=== PATIENT | male | born 1950 | race Caucasian/White ===

== ENCOUNTER 2018-09-16 13:52 | Outpatient (CLI) | payer MEDICARE, OTHER, SELFPAY ==
--- NOTE | 2018-09-16 12:49 | DI.RAD_ITS ---
SYMPTOMS/DIAGNOSIS: CHRONIC COUGH, R05 PA AND LATERAL CHEST: The heart is normal in size. The lungs are clear. The mediastinal structures and pleura appear intact. CONCLUSION: Normal chest.
== END 2018-09-16 14:12 ==
PROVIDERS: PCP Family Medicine; Visit Provider Family Medicine
DX: R05 Cough (principal)
CPT/HCPCS: 71046

== ENCOUNTER 2018-09-17 02:11 | Outpatient (CLI) | payer MEDICARE, OTHER, SELFPAY ==
[2018-09-17 09:56] LABS: Hemoglobin A1C 6.7 % (4.5-6.2)
[2018-09-17 10:17] LABS: Anion Gap 9.3 mmol/L (3-11); BUN 11 mg/dL (7-18); CO2 30.7 mmol/L (21.0-32.0); CREATININE 1.09 mg/dL (0.70-1.30); Calcium 9.3 mg/dL (8.5-10.1); Chloride 103 mmol/L (98-107); Glucose 103 mg/dL (70-100); Potassium 3.7 mmol/L (3.5-5.1); Sodium 143 mmol/L (136-145)
[2018-09-17 14:59] LABS: Cholesterol 227 mg/dL (50-200); HDL Cholesterol 35 mg/dL (40-60); LDL CHOLESTEROL 154 mg/dL (<100); Triglyceride 204 mg/dL (30-150)
== END 2018-09-17 02:31 ==
PROVIDERS: PCP Family Medicine; Visit Provider Family Medicine
DX: E11.9 Type 2 diabetes mellitus without complications (principal)
CPT/HCPCS: 36415; 80048; 80061; 83721; 83036

== ENCOUNTER → 2018-10-04 09:20 | Outpatient (BNVA) | payer MEDICARE, OTHER, SELFPAY | PROVIDERS: PCP Family Medicine; Referring Provider Family Medicine; Visit Provider Surgery | DX: K40.90 Unilateral inguinal hernia, without obstruction or gangrene, not specified as recurrent (principal); J44.9 Chronic obstructive pulmonary disease, unspecified; E11.9 Type 2 diabetes mellitus without complications; I10 Essential (primary) hypertension; Z87.891 Personal history of nicotine dependence | CPT/HCPCS: 99214 ==

== ENCOUNTER 2018-10-19 06:00 | Day surgery (SDC) | payer MEDICARE, OTHER, SELFPAY ==
[2018-10-19] VITALS (8 sets, daily range): BP systolic 84–125; BP diastolic 41–74; PULSE 65–74; RESP 10–18; TEMP 35.5–36.6; O2SAT 91–97
[2018-10-19] MEDS: Lactated Ringers 1,000 ML 30 ML IV ×2 (06:49→09:33)
[2018-10-19] MEDS: Bupivacaine 0.25% Pres-Free 30 ML VIAL (07:55)
[2018-10-19] MEDS: Lidocaine 1% Pres-Free 5 ML VIAL (08:24)
--- NOTE | 2018-10-19 09:46 | ROE_ITS ---
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 He has had left groin discomfort for 3 months associated with bending and lifting heavy heavy objects. He has also noticed a bulge on the left side during this time. He is unsure how long it is been there prior. He does not know what the bulge disappears when he lies flat, but he has no discomfort or pain when he is lying flat. He does have pain if he lays on his left side. Findings: In exploring the left inguinal canal and indirect hernia was found and a large cord lipoma. The cord lipoma was excised the hernia reduced and the mesh placed to repair the floor the inguinal canal. Procedure Description: The patient was brought to the operating room. A time-out was completed verifying correct patient , procedure, site , allergies, medications, positioning, implants, and fire risk, prior to beginning the procedure. General anesthesia was induced. The left groin was prepped with chloraprep, and draped in the standard sterile fashion. The pubic tubercle, and anterior superior iliac spine (ASIS) were marked. A skin incision was marked starting just laterally to the pubic tubercle in a linear oblique fashion toward the ASIS. A field block was produced by injecting local along the proposed skin incision. Additional local anesthesia was injected during the procedure under the external oblique aponeurosisto , just medial to the ASIS, to block the ilioinguinal nerve. Addition local was injected as needed during the case. I began by incising the previously marked incision line with a scalpel. The incision was deepened though Imer's and Camper's fascia with electocautery down until the aponeurosis of the external oblique was encountered. This was cleaned and the external ring exposed. Hemostasis was obtained in the wound with cautery. A stab incision was made in the midportion of the external oblique aponeurosis in the parallel to the fibers. Flaps of the external oblique were developed cephalad, and inferiorly. The cord was identified, gently dissected at the pubic tubercle, and encircled with a rossy drain, The cord was then explored, the vas deferens, and testicular vesicles were protected and indirect hernia sac was found anterior medial to the cord structures. The sac was subsequently reduced after being from a large cord lipoma which was suture ligated and resected. The femoral canal was palpated and no hernia was identified. I then placed a mesh to re-enforce the floor of the inguinal canal, and create a new internal ring. The floor of the inguinal canal was cleaned medially over the pubic tubercle, cephalad over the conjoint tendon, laterally over the aponeurosis of the internal oblique, and inferiorly the inguinal ligament. A mesh was then laid in the floor of the canal with the mesh overlying the pubic tubercle medially, conjoint tendon cephalad, internal oblique aponeurosis laterally, and shelving edge of inguinal ligament inferiorly. The mesh was then inspected for apposition to the tissue, and pressed into place. The tip of a Debakey forceps easily passed through the new internal ring next the cord structures. The wound was then irrigated. Hemostasis again checked, and rossy drain removed. I closed the wound in layers, with 2-0 vicryl for the external oblique in a running fashion, 3-0 vicryl to approximate Imer's fascia, and the skin was closed with 4-0 vicryl with a running subcuticular fashion. A dressing was applied. The count was reported correct times two. No apparent complications during the case. The patient was brought to the PACU in good condition.
--- NOTE | 2018-10-19 09:52 | PDOC.DSDIS_ITS ---
Discharge Plan Disposition Patient Disposition: HOME Condition: Good Discharge Details Reason For Visit: (L) INGUINAL HERNIA Attending Provider: Trung Laurent Primary Care Provider: Maximilian Fall Home Meds and New Rx's Prescriptions: New acetaminophen [Tylenol] 325 mg Tablet 650 mg PO Q4H PRN PRNQty: 30 RF: 0 tramadol 50 mg tablet 50 mg PO Q6H PRN (Reason: inguinal hernia repair) Qty: 12 RF: 0 Continue sulfasalazine 500 mg tablet 2 gm PO BID Qty: 720 RF: 4 sumatriptan succinate [Imitrex] 50 mg tablet 50 mg PO ONCE Qty: 6 RF: 3 epinephrine [EpiPen] 0.3 MG/0.3 ML auto-injector 1 dose IM PRN RF: 0 triamcinolone acetonide 15 GM cream Topical BID PRNQty: 30 RF: 3 folic acid 1 MG tablet 1 tab PO DAILY Qty: 90 RF: 4 tamsulosin 0.4 MG capsule 0.4 mg PO DAILY Qty: 90 RF: 4 propranolol [Inderal LA] 80 MG capsule,extended release 24 hr 2 tab PO DAILY Qty: 180 RF: 4 glipizide 10 MG tablet 10 mg PO DAILY Qty: 90 RF: 4 metformin 1,000 MG tablet 1,000 mg PO BID Qty: 180 RF: 4 omeprazole 40 MG capsule,delayed release(DR/EC) 40 mg PO DAILY Qty: 90 RF: 4 lisinopril 10 MG tablet 1 tab PO DAILY Qty: 90 RF: 4 albuterol sulfate [ProAir HFA] 8.5 GM HFA aerosol inhaler 2 puff Inhalation Q6H PRN Qty: 1 RF: 4 ONETOUCH ULTRA TEST STRIPS 1 EACH strip 1 ea Miscellaneous BID Qty: 200 RF: 5 pen needle, diabetic [Pen Needle] 31 gauge x 5/16 needle 1 ea Miscellaneous DAILY Qty: 100 RF: 4 fluticasone 16 GM spray,suspension 2 spr NS HS RF: 0 insulin glargine [Basaglar KwikPen U-100 Insulin] 100 unit/mL (3 mL) insulin pen 65 unit subcut HS RF: 0 budesonide [Uceris] 2 mg/actuation Foam 1 appful [place] .QMONTHY RF: 0 Discharge Instructions Instructions: Inguinal Hernia Repair (DC) Additional Instructions: Dr. Trung Laurent Post-Operative Discharge Instructions 1. Because there will be medication in your system for the next 24 hours, you may feel a little sleepy. Your coordination will be affected. Therefore: * Do not drive or operate dangerous equipment for 24 hours. * Do not drink alcohol beverages for 24 hours (not even beer). * Plan to go home and rest for the day. Restrictions: * Do not lift over 20lbs for 6 weeks. * No strenuous bending or twisting for 6weeks, if it hurts stop. * No baths, you can shower. Let warm soapy water run over wound, then pat wound dry. Activity: * The day of surgery spend most of the day resting in a comfortable bed or recliner. 2-3 times during the day get up and walk around the house. * The day after surgery, or after your discharge, walk at least 3 times a day and spend increasing amounts of time walking and sitting up. If you are tired rest, but keep moving as able. Diet: * Resume home diet as tolerated. * Start with a light diet, your appetite will improve with time. * Drink at least 4-6 glasses of water per day to keep hydrated. Wound Care: * Removed dressing in 48hrs, There is skin glue over the incision that will wear off with tiime * You may cover the wound with a dry sterile dressing to keep clothing from rubbing against the wound. Continue all your regular medications unless directed otherwise. Call the office or the [facility] , If you have: * Pain not controlled with pain medication. * Nausea and vomiting. * Temperature greater than 101 degrees Fahrenheit. * Drainage from your wound that soaks through your dressing. *No more than 4000 milligrams of Tylenol in 24 hours. Narcotic pain medication can be constipating, if you have not had a bowel movement within 3 days use a laxative, I recommend Milk of Magnesia (MOM) 1oz. every 6 hrs until you have a bowel movement. I understand the above instructions and have no questions. _ Signature of Patient or Responsible Adult Escort Date/Time _ Name of Responsible Adult Escort _ Signature of Nurse Date/Time Revised 03/17/11 Referrals: Trung Laurent DO [ [facility] STAFF PHYSICIAN] - 11/03/18 9:15 am (Follow up after left inguinal hernia) Activity:: see instructions Remove Dressings/Wound Care:: 48 hours Shower/Bathe:: 48 hours Diet:: As Tolerated Discharge Orders Discharge Orders: Discharge Order (Routine); Ordered 10/19/18 Ordered By: Trung Laurent DS: Diagnosis Discharge Diagnosis (1) Inguinal hernia of left side without obstruction or gangrene: Status: Acute Asessment and Plan: Left inguinal hernia repaired with mesh
[2018-10-19] MEDS: traMADol 50 MG TAB PO (11:08)
== END 2018-10-19 12:32 | disposition home or self-care (01) ==
PROVIDERS: PCP Family Medicine; Visit Provider Surgery
PROC: (CPT 49505; principal; 2018-10-19 07:30)
DX: K40.90 Unilateral inguinal hernia, without obstruction or gangrene, not specified as recurrent (principal); J44.9 Chronic obstructive pulmonary disease, unspecified; E11.9 Type 2 diabetes mellitus without complications; Z97.4 Presence of external hearing-aid; K21.9 Gastro-esophageal reflux disease without esophagitis; I10 Essential (primary) hypertension
CPT/HCPCS: 49505; C1781; J0690; J1885; J2405; J3010

== ENCOUNTER 2018-11-03 09:50 | Outpatient (REF) | payer MEDICARE, OTHER, SELFPAY ==
[2018-11-06 22:39] LABS: Calprotectin 957 mcg/g
== END 2018-11-03 10:10 ==
LOC: LBN 09:50
PROVIDERS: PCP Family Medicine; Visit Provider Nurse Practitioner Adult Health
DX: K51.50 Left sided colitis without complications (principal)
CPT/HCPCS: 83993; 87324

== ENCOUNTER → 2018-11-18 09:45 | Outpatient (BNVA) | payer MEDICARE, OTHER, SELFPAY | PROVIDERS: PCP Family Medicine; Referring Provider Family Medicine; Visit Provider Physical Therapy Assistant | DX: K40.90 Unilateral inguinal hernia, without obstruction or gangrene, not specified as recurrent (principal); Z48.89 Encounter for other specified surgical aftercare; J44.9 Chronic obstructive pulmonary disease, unspecified; Z87.891 Personal history of nicotine dependence; E11.9 Type 2 diabetes mellitus without complications; Z79.4 Long term (current) use of insulin; I10 Essential (primary) hypertension ==

== ENCOUNTER 2018-12-17 11:33 | Outpatient (CLI) | payer MEDICARE, OTHER, SELFPAY ==
[2018-12-17 13:40] LABS: Hemoglobin A1C 7.2 % (4.5-6.2)
== END 2018-12-17 11:53 ==
PROVIDERS: PCP Family Medicine; Visit Provider Family Medicine
DX: E11.9 Type 2 diabetes mellitus without complications (principal)
CPT/HCPCS: 36415; 83036

== ENCOUNTER → 2019-03-07 11:23 | Outpatient (BNVA) | payer MEDICARE, OTHER, SELFPAY | PROVIDERS: PCP Family Medicine; Referring Provider Family Medicine; Visit Provider Surgery | DX: R69 Illness, unspecified (principal) ==

== ENCOUNTER 2019-03-07 13:10 | Outpatient (CLI) | payer MEDICARE, OTHER, SELFPAY ==
[2019-03-07 13:18] LABS: Abs Immature Grans 0.03 k/cumm (0.0-0.09); Absolute Basophil Count 0.03 k/cumm (0.0-0.2); Absolute Neutrophil Count 4.82 k/cumm (1.2-6.7); Basophils % 0.4; Eosinophils % 2.7; HCT 37.5 % (40.0-50.0); HGB 12.6 g/dL (13.5-17.5); Immature Grans % 0.4; Lymphocytes % 23.4; Mean Corp. HGB Concentration 33.6 g/dL (32.0-36.0); Mean Corpuscular Hemoglobin 33.5 pg (27.0-33.0); Mean Corpuscular Volume 99.7 fL (80-95); Mean Platelet Volume 10.6 fL (8.0-11.0); Monocytes % 6.9; Neutrophils % 66.2; Platelet Count 218 x1000/uL (130-400); RBC 3.76 m/cumm (4.50-6.00); RBC Distribution Width 12.7 % (11.8-14.1); White Blood Cell Count 7.28 k/cumm (4.4-10.8)
[2019-03-07 13:23] LABS: Anion Gap 8.8 mmol/L (3-11); BUN 15 mg/dL (7-18); C-Reactive Protein 0.69 mg/dL (0.0-0.3); CO2 29.2 mmol/L (21.0-32.0); CREATININE 1.13 mg/dL (0.70-1.30); Calcium 9.3 mg/dL (8.5-10.1); Chloride 104 mmol/L (98-107); Glucose 90 mg/dL (70-100); Potassium 3.7 mmol/L (3.5-5.1); Sodium 142 mmol/L (136-145)
--- NOTE | 2019-03-07 14:00 | DI.CT_ITS ---
SYMPTOM/DIAGNOSIS: LT INGUINAL PAIN, LT HIP PAIN, LOW ABD PAIN, R10.[address]: CT examination of the abdomen and pelvis was performed with a bolus infusion of 100 cc's of Omnipaque 350 and ingestion of dilute barium. Images obtained through the lung bases are unremarkable. There appears to be mild hepatic steatosis. No focal hepatic lesion is seen. Spleen is unremarkable. Note is made of a previous cholecystectomy. There appears to be wall thickening of the duodenum, particularly adjacent to the pancreatic head. There is a question of fat edema also seen adjacent to the pancreatic head and duodenum. No biliary dilatation is seen. Remainder of the pancreas is unremarkable. Kidneys are unremarkable in appearance with a couple of incidental renal cysts. Adrenals appear normal. Abdominal aorta is of normal diameter and no major vascular abnormality is seen. The patient has reportedly had a left inguinal hernia repair. There is increased radiodensity in the soft tissues of the lower abdominal wall adjacent to the inguinal canal and in the subcutaneous tissues. There is also some prominence of the spermatic cord on the left raising the possibility of increased vascular flow. No gross abscess identified. Note is made of wall thickening of the sigmoid colon raising the possibility of chronic versus acute diverticulitis. Question minimal pericolonic fat edema in the sigmoid. No perforation or abscess identified. Appendix not specifically visualized but there is no evidence of appendicitis or bowel obstruction. No abdominal or pelvic adenopathy is seen. CONCLUSION: 1. Nonspecific findings in region of previous left herniorrhaphy, no abscess identified. 2. Increased vascular flow may be present in left spermatic cord, scrotal ultrasound may be considered for further evaluation. 3. Question mild chronic sigmoid diverticulitis. 5. Question duodenitis, duodenal neoplastic process not entirely excluded on the basis of this examination. Endoscopy suggested for further evaluation.
[2019-03-07] MEDS: Breeza Beverage 473 ML BTL PO ×2 (14:15→14:16)
[2019-03-07] MEDS: Omnipaque 350 MG/ML 100 ML BTL IJ (14:15)
[2019-03-07] MEDS: Omnipaque 350 MG/ML 50 ML BTL PO (14:16)
--- NOTE | 2019-03-07 15:30 | DI.US_ITS ---
SYMPTOM/DIAGNOSIS: ABNL CT TESTICULAR ULTRASOUND: The right testicle measures 3.1 x 3.7 x 3.3 cm. The right epididymis measures 6 x 8 x 7 m. The left testicle measures 4 x 2.4 x 3.2 cm The left epididymis measures 9 x 9 x 9 mm. The testicles are acoustically homogeneous. There is no evidence of a mass, cyst or torsion. SUMMARY: Normal testicular ultrasound.
== END 2019-03-07 13:30 ==
PROVIDERS: PCP Family Medicine; Visit Provider Surgery
DX: R10.32 Left lower quadrant pain (principal); M25.552 Pain in left hip; K29.80 Duodenitis without bleeding; K57.32 Diverticulitis of large intestine without perforation or abscess without bleeding; E11.9 Type 2 diabetes mellitus without complications; L02.91 Cutaneous abscess, unspecified; Z79.4 Long term (current) use of insulin; I10 Essential (primary) hypertension; J44.9 Chronic obstructive pulmonary disease, unspecified
CPT/HCPCS: 80048; 99212; 74177; 76870; 83036; 85025; 86140; J3490; Q9967

== ENCOUNTER 2019-03-17 09:09 | Outpatient (CLI) | payer MEDICARE, OTHER, SELFPAY ==
[2019-03-17 11:45] LABS: HCT 39.7 % (40.0-50.0); HGB 12.8 g/dL (13.5-17.5); Mean Corp. HGB Concentration 32.2 g/dL (32.0-36.0); Mean Corpuscular Hemoglobin 32.3 pg (27.0-33.0); Mean Corpuscular Volume 100.3 fL (80-95); Mean Platelet Volume 11.1 fL (8.0-11.0); Platelet Count 224 x1000/uL (130-400); RBC 3.96 m/cumm (4.50-6.00); White Blood Cell Count 6.12 k/cumm (4.4-10.8)
[2019-03-18 11:30] LABS: Lyme Ab w Rflx to Lyme Confirm Negative
== END 2019-03-17 09:29 ==
PROVIDERS: PCP Family Medicine; Visit Provider Family Medicine
DX: R53.83 Other fatigue (principal); W57.XXXA Bitten or stung by nonvenomous insect and other nonvenomous arthropods, initial encounter; T14.8XXA Other injury of unspecified body region, initial encounter
CPT/HCPCS: 36415; 85027; 86618

== ENCOUNTER → 2019-03-21 14:19 | Outpatient (BNVA) | payer MEDICARE, OTHER, SELFPAY | PROVIDERS: PCP Family Medicine; Referring Provider Family Medicine; Visit Provider Surgery | DX: K51.811 Other ulcerative colitis with rectal bleeding (principal); R10.32 Left lower quadrant pain; E11.40 Type 2 diabetes mellitus with diabetic neuropathy, unspecified; J44.9 Chronic obstructive pulmonary disease, unspecified; I10 Essential (primary) hypertension; Z79.4 Long term (current) use of insulin | CPT/HCPCS: 99212; 99213 ==

== ENCOUNTER → 2019-10-11 12:46 | Outpatient (BNVA) | payer MEDICARE, OTHER, SELFPAY | PROVIDERS: PCP Family Medicine; Referring Provider Family Medicine; Visit Provider Nurse Practitioner Gerontology | DX: N50.89 Other specified disorders of the male genital organs (principal); N40.1 Benign prostatic hyperplasia with lower urinary tract symptoms; R33.9 Retention of urine, unspecified; R30.0 Dysuria; R82.90 Unspecified abnormal findings in urine | CPT/HCPCS: 51798; 81003; 99204; 99215 ==

== ENCOUNTER 2019-10-11 14:51 | Outpatient (REF) | payer MEDICARE, OTHER, SELFPAY | END 2019-10-11 15:11 | LOC: LBN 14:51 | PROVIDERS: PCP Family Medicine; Visit Provider Nurse Practitioner Gerontology | DX: R30.0 Dysuria (principal) | CPT/HCPCS: 87077; 87086; 87186 ==

== ENCOUNTER → 2019-11-08 11:17 | Outpatient (BNVA) | payer MEDICARE, OTHER, SELFPAY | PROVIDERS: PCP Family Medicine; Referring Provider Family Medicine; Visit Provider Nurse Practitioner Gerontology | DX: N40.1 Benign prostatic hyperplasia with lower urinary tract symptoms (principal); R30.0 Dysuria; R31.9 Hematuria, unspecified; E11.9 Type 2 diabetes mellitus without complications; I10 Essential (primary) hypertension; J44.9 Chronic obstructive pulmonary disease, unspecified; Z79.4 Long term (current) use of insulin | CPT/HCPCS: 81003; 99213 ==

== ENCOUNTER 2019-11-08 14:52 | Outpatient (REF) | payer MEDICARE, OTHER, SELFPAY ==
[2019-11-08 15:56] LABS: Bilirubin Negative (Negative); Blood Trace-lysed (Negative); Clarity Cloudy (Clear); Glucose 100 mg/dL (Negative); Ketones Negative (Negative); Leukocyte Esterase Large (Negative); Nitrite Negative (Negative); Specific Gravity >= 1.030 (1.005-1.025); Urobilinogen 0.2 EU/dL (Up TO 0.2); pH 5.5 (5-8)
[2019-11-08 17:06] LABS: WBC >50 HPF (0-5)
[2019-11-08 17:07] LABS: Bacteria Packed HPF (Negative); Crystals Negative HPF (Negative); Epithelial Cells Few HPF (Negative)
[2019-11-08 17:08] LABS: C & S Indicated? C&S Done As Ordered
== END 2019-11-08 15:12 ==
LOC: LBN 14:52
PROVIDERS: PCP Family Medicine; Visit Provider Nurse Practitioner Gerontology
DX: R30.0 Dysuria (principal)
CPT/HCPCS: 87077; 81003; 81015; 87086; 87186

== ENCOUNTER 2019-11-28 01:23 | Outpatient (CLI) | payer MEDICARE, OTHER, SELFPAY ==
[2019-11-28 08:46] LABS: CREATININE 1.11 mg/dL (0.70-1.30)
--- NOTE | 2019-11-28 09:05 | DI.CT_ITS ---
EXAM: CT ABDOMEN PELVIS WO/W CLINICAL HISTORY: Right flank pain with hematuria,R31.9 TECHNIQUE: Without oral contrast. Before and after IV contrast including delayed imaging. 100 cc's of Omnipaque 350 was utilized. COMPARISON: CT ABDOMEN PELVIS W from 03/07/2019 FINDINGS: Noncontrast images show no evidence of urinary tract calculi. There is air in the urinary bladder w hich could be secondary to recent instrumentation. There is diffuse bladder wall thickening. No foc al bladder mass is visible. Multiple calcifications are noted in the prostate which is not significa ntly enlarged. There is a simple appearing cyst noted at the upper pole of the right kidney. Two ti ny cysts are seen in the mid and lower left kidney. There are no collecting system filling defects. No suspicious masses are seen. There is a right fatty containing inguinal hernia. There is prominen t sigmoid diverticulosis without evidence of diverticulitis. Lung bases are clear. Patient is statu s post cholecystectomy. No biliary dilatation is seen. The spleen, pancreas and adrenals are unrema rkable. The aorta shows mild calcification and is normal in diameter. There is an old deformity of the right iliac wing. Degenerative changes are noted in the spine. IMPRESSION: Diffusely thickened urinary bladder without focal mass. Air is demonstrated within the bladder. The re are bilateral renal cysts. No masses are identified.
[2019-11-28] MEDS: Omnipaque 350 MG/ML 100 ML BTL IV (09:26)
== END 2019-11-28 01:43 ==
PROVIDERS: PCP Family Medicine; Visit Provider Nurse Practitioner Gerontology
DX: R31.9 Hematuria, unspecified (principal); R10.31 Right lower quadrant pain; N32.89 Other specified disorders of bladder; N28.1 Cyst of kidney, acquired; K40.90 Unilateral inguinal hernia, without obstruction or gangrene, not specified as recurrent
CPT/HCPCS: 74178; 82565; J3490

== ENCOUNTER → 2019-11-29 09:46 | Outpatient (BNVA) | payer MEDICARE, OTHER, SELFPAY | PROVIDERS: PCP Family Medicine; Referring Provider Family Medicine; Visit Provider Nurse Practitioner Gerontology | DX: N40.1 Benign prostatic hyperplasia with lower urinary tract symptoms (principal); R31.0 Gross hematuria; Z80.42 Family history of malignant neoplasm of prostate | CPT/HCPCS: 99213 ==

== ENCOUNTER 2019-12-12 09:58 | Day surgery (SDC) | payer MEDICARE, OTHER, SELFPAY ==
[2019-12-12 10:00] VITALS: BP 150/85; PULSE 74; RESP 21; TEMP 36.1; O2SAT 96
--- NOTE | 2019-12-12 10:49 | HPE_ITS ---
Date of service: 12/12/19 Time of Service: 10:49 Assessment and Plan Assessment and plan (1) Microscopic hematuria: Status: Acute Assessment and plan: For cystoscopy to complete his hematuria workup History of Present Illness History of Present Illness Chief Complaint: Gross hematuria Narrative: (1) BPH loc w urin obs/LUTS: (2) Gross hematuria: (3) Family history of prostate cancer: We reviewed his CTU. At this point there is not appear to be a urologic answer to his left flank and left lower abdominal pain. We did discuss that since he completed the CTU and had gross hematuria for the last part of the hematuria work-up would be a cystoscopy. He is amenable to doing so and would like to proceed via the OR. Risks and benefits of having procedure in the OR versus the office were discussed. He was a very heavy smoker 4 packs/day for multiple years. Preop orders were completed and given to the nurse for scheduling. We will see him back as needed after he completes the hematuria cystoscopy work-up. He currently is finishing an antibiotic for prostatitis. In approximately 8 weeks, he will get a PSA for us unless another infection arises. We will not seeing him after he gets this test so we can discuss the results. He does have extensive family history of prostate cancer. He however finds that there is no change in his LUTS for the worse but only the better since the addition of tamsulosin 0.8 mg. This was sent to pharmacy as renewal. We will see him the start of February. Dictation was done by [employer] voice recognition. Errors may be present within the note. Orders: PSA, Screening 2 Months N40.1, Z80.42 Changed: From: tamsulosin 0.4 mg PO DAILY 180 caps 4RF To: tamsulosin Take 2 caps daily 0.8 mg (2 x 0.4 mg) PO DAILY 180 caps 4RF Discontinued: sulfamethoxazole-trimethoprim 800-160 mg Discontinued Reason: None 1 tab PO BID 14 tabs 0RF cephalexin (Keflex) Discontinued Reason: None 500 mg PO TID 21 caps 0RF Plan Detail Changed: From: tamsulosin 0.4 mg PO DAILY 180 caps 4RF To: tamsulosin Take 2 caps daily 0.8 mg (2 x 0.4 mg) PO DAILY 180 caps 4RF Discontinued: sulfamethoxazole-trimethoprim 800-160 mg Discontinued Reason: None 1 tab PO BID 14 tabs 0RF cephalexin (Keflex) Discontinued Reason: None 500 mg PO TID 21 caps 0RF HPI Brian is here for follow-up on his recent CTU. He states he has not seen any more gross hematuria. He does occasionally have left lower quadrant pain and left testicle discomfort. It is intermittent. He has not had any change for the worse of his LUTS. He states that they may have improved since he is using tamsulosin 0.8 g p.o. daily. He is reporting decreased weight due to not having appetite. He also notes that his strength has decreased that he is feeling more fatigued as of late. He denies any long bone pain. He has no abnormal bleeding or bruising. He states his urine has cleared up and the discomfort feels much better. He originally was treated for UTI I came back quickly after completing antibiotic treatment. It was then determined he had prostatitis and was placed on Levaquin 500 mg p.o. daily x21 days. He notes that he has approximately a week and a jacob f left. Due to the various infections and being on ABX treatments, he has not had a PSA. There is a strong family hx of prostate Ca in his family. Review of Systems Const: Reports fatigue and weight loss; Denies chills or fever(s) Card: Denies chest pain or dyspnea Resp: Denies dyspnea GI: Reports abdominal pain; Denies constipation or diarrhea : Reports hematuria; Denies dysuria, flank pain, nocturia, urinary frequency, urinary hesitancy, urinary incontinence or urinary urgency Endo: Reports fatigue Exam Const Orientation: alert, awake and oriented x3 Other: VS reviewed that were done by nurse Eyes Sclera: sclerae normal Resp Effort & Inspection: normal respiratory effort GI Inspection: normal to inspection and non-distended Extrem General: full ROM Vital Signs 11/29/19 09:53 BP 134/71 Blood Pressure Location Lt brachial Position Sitting Pulse 65 Pulse Source NIBP [facility] Family History (Updated 12/12/19 @ 10:13 by Shannen Zuleta RN) Mother Leukemia Father Neoplasm Grandfather Neoplasm STOMACH Grandmother Diabetes Colitis Brother Prostate cancer Nephew Prostate cancer Social History (Updated 10/04/18 @ 10:12 by Trung Laurent DO) Smoking/Tobacco Use Status: Former Tobacco Use Pack-years: 20 Alcohol Intake: current Alcohol Intake frequency: holidays/special occasions only Drug use: Never Substance use type: does not use Do you feel safe at home: Yes Do you feel safe in your relationship?: Yes Meds Home Medications and Allergies Home Medications Medication Instructions Recorded Confirmed Type albuterol sulfate [ProAir HFA] 2 puff INHALATION Q6H PRN #1 06/17/18 12/12/19 Rx inhaler pen needle, diabetic 31 gauge x #100 ea 10/11/18 11/29/19 Rx 5/16 Uceris 1 appful [place] .Q2D WEEKLY 10/18/18 12/12/19 History fluticasone propionate 2 spr NS HS 10/18/18 12/12/19 History folic acid 1 mg tablet 1 mg PO DAILY #90 tab-cap 12/13/18 12/12/19 Rx acetaminophen 325 mg tablet 650 mg PO Q4H PRN tab 03/07/19 12/12/19 History sumatriptan succinate 50 mg tablet 50 mg PO ONCE PRN tab-cap 03/07/19 12/12/19 History glipizide 10 mg tablet 10 mg PO DAILY #90 tab-cap 03/08/19 12/12/19 Rx propranolol 80 mg capsule,24 160 mg PO DAILY #180 tab 03/08/19 12/12/19 Rx hr,extended release lisinopril 10 mg tablet 10 mg PO DAILY #90 tab 06/02/19 12/12/19 Rx omeprazole 40 mg capsule,delayed 40 mg PO DAILY #90 tab-cap 06/02/19 12/12/19 Rx release epinephrine 0.3 mg/0.3 mL 0.3 ml IM ONCE #1 each 06/16/19 12/12/19 Rx injection, auto-injector blood sugar diagnostic #100 each 09/02/19 11/29/19 Rx metformin 1,000 mg tablet 1,000 mg PO DAILY #90 tab-cap 09/02/19 12/12/19 Rx sulfasalazine 500 mg tablet 0.5 gm PO DAILY 10/11/19 12/12/19 History insulin glargine 100 unit/mL (3 65 unit SUBCUT HS #15 ml 11/03/19 12/12/19 Rx mL) subcutaneous pen tamsulosin 0.8 mg PO HS 12/12/19 12/12/19 History Allergies Allergy/AdvReac Type Severity Reaction Status Date / Time hornet venom Allergy Severe Verified 12/12/19 10:13 Tetracyclines AdvReac Intermediate NAUSEA Verified 12/12/19 10:13 erythromycin base AdvReac Unknown NAUSEA Verified 12/12/19 10:13 Exam Resp Effort & Inspection: normal respiratory effort Auscultation: clear to auscultation bilaterally Other: few end expiratory wheezes bilaterally Cardio Rate: regular rate Rhythm: regular rhythm Results Last Vital Signs Temp 36.1 C L 12/12/19 10:00 Pulse 74 12/12/19 10:00 Resp 21 12/12/19 10:00 BP 150/85 H 12/12/19 10:00 Pulse Ox 96 12/12/19 10:00
[2019-12-12] MEDS: Lactated Ringers 1,000 ML 80 ML IV (10:55)
[2019-12-12] MEDS: Sulfameth/Trimeth DS TAB 1 TAB PO (12:05)
[2019-12-12] MEDS: Lidocaine 2% Jelly 6 ML SYR (12:30)
--- NOTE | 2019-12-12 12:48 | PDOC.DSDIS_ITS ---
Discharge Plan Disposition Patient Disposition: HOME Condition: Stable Discharge Details Attending Provider: Rodrick Florentino Primary Care Provider: Maximilian Fall Home Meds and New Rx's Prescriptions: No Action epinephrine [EpiPen] 0.3 mg/0.3 mL auto-injector 0.3 ml IM ONCE Qty: 1 RF: 0 acetaminophen [Tylenol] 325 mg tablet 650 mg PO Q4H PRN RF: 0 sumatriptan succinate [Imitrex] 50 mg tablet 50 mg PO ONCE PRNRF: 0 metformin 1,000 mg tablet 1,000 mg PO DAILY Qty: 90 RF: 4 (DME) [employer]Touch Ultra Blue Test Strip Strip See Rx Instructions .ROUTE .MEDSUPPLY Qty: 100 RF: 4 sulfasalazine 500 mg tablet 0.5 gm PO DAILY RF: 0 albuterol sulfate [ProAir HFA] 8.5 GM HFA aerosol inhaler 2 puff Inhalation Q6H PRN Qty: 1 RF: 4 (DME) pen needle, diabetic [Pen Needle] 31 gauge x 5/16 needle 1 ea Miscellaneous DAILY Qty: 100 RF: 4 folic acid 1 mg tablet 1 mg PO DAILY Qty: 90 RF: 4 glipizide 10 mg tablet 10 mg PO DAILY Qty: 90 RF: 4 propranolol [Inderal LA] 80 mg capsule,extended release 24 hr 160 mg PO DAILY Qty: 180 RF: 4 lisinopril 10 mg tablet 10 mg PO DAILY Qty: 90 RF: 4 omeprazole 40 mg capsule,delayed release(DR/EC) 40 mg PO DAILY Qty: 90 RF: 4 Basaglar KwikPen U-100 Insulin 100 unit/mL (3 mL) insulin pen 65 unit subcut HS Qty: 15 RF: 4 fluticasone propionate 16 GM spray,suspension 2 spr NS HS RF: 0 Uceris 2 mg/actuation Foam 1 appful [place] .Q2D WEEKLY RF: 0 tamsulosin 0.4 mg capsule 0.8 mg PO HS RF: 0 Discharge Instructions Additional Instructions: ask pt to call in 48 hours to review urine culture f/u yearly for urine testing - sooner if problems arise Activity:: Activity as Tolerated Shower/Bathe:: 24 hours Diet:: As Tolerated Discharge Orders Discharge Orders: Discharge Order (Routine); Ordered 12/12/19 Ordered By: Rodrick Florentino DS: Diagnosis Discharge Diagnosis (1) Microscopic hematuria: Status: Acute
[2019-12-12] MEDS: Phenazopyridine 200 MG TAB PO (13:10)
[2019-12-12 13:22] VITALS: BP 144/68; PULSE 64; RESP 18; TEMP 36.2; O2SAT 95
--- NOTE | 2019-12-12 15:59 | ROE_ITS ---
DATE OF PROCEDURE: December 12, 2019 PREOPERATIVE DIAGNOSIS: Hematuria. POSTOPERATIVE DIAGNOSIS: Same. PROCEDURE: Cystoscopy. SURGEON: Rodrick Florentino M.D. ANESTHESIA: MAC with local. COMPLICATIONS: None. HISTORY: This is a 69-year-old gentleman who has a history of urinary tract infections/prostatitis/h ematuria. He's been evaluated with a CT urogram that showed no significant upper tract disease. He presents now for a cystoscopy to complete his hematuria workup. OPERATIVE REPORT: The patient was brought to the operating room on 12/12/2019. He was given monitor ed anesthesia care and placed in the dorsal lithotomy position. His genitalia was prepped and draped . 2% Xylocaine jelly was instilled into the urethra to act as a local anesthetic. A 22 [place] rigid cystoscope was passed through the urethra into the bladder. The urethra and bladde r were inspected using a 30-degree lens. The pendulous, bulbous and membranous urethras appeared normal with no strictures. The prostatic ure thra showed some trilobar hypertrophy and some increased vascularity, but no active bleeding. The bladder neck was entered and the bladder mucosa was inspected. The bladder was trabeculated, but no papillary or nodular lesions were seen. These findings in the bladder were confirmed on re-inspection using a 70-degree lens. Based on today's examination, I don't see any sign of bladder tumor. The most-likely source of his h ematuria is his prostate. If the hematuria continues, a 5-alpha reductase inhibitor, such as Proscar , would be in order.
== END 2019-12-12 13:41 | disposition home or self-care (01) ==
PROVIDERS: PCP Family Medicine; Visit Provider Urology
PROC: 0TJB8ZZ Inspection of Bladder, Via Natural or Artificial Opening Endoscopic (ICD-10-PCS; CPT 52000; principal; 2019-12-12 11:00)
DX: R31.0 Gross hematuria (principal); Z80.42 Family history of malignant neoplasm of prostate; E11.9 Type 2 diabetes mellitus without complications; Z79.4 Long term (current) use of insulin; Z87.891 Personal history of nicotine dependence
CPT/HCPCS: 52000; 87077; NC; 87086; 87186; J2001; J2704

== ENCOUNTER → 2019-12-29 11:18 | Outpatient (BNVA) | payer MEDICARE, OTHER, SELFPAY | PROVIDERS: PCP Family Medicine; Referring Provider Family Medicine; Visit Provider Nurse Practitioner Gerontology | DX: N40.1 Benign prostatic hyperplasia with lower urinary tract symptoms (principal); R31.0 Gross hematuria | CPT/HCPCS: 81003; 99213 ==

== ENCOUNTER 2019-12-29 13:03 | Outpatient (REF) | payer MEDICARE, OTHER, SELFPAY | END 2019-12-29 13:23 | LOC: LBO 13:03 | PROVIDERS: PCP Family Medicine; Visit Provider Nurse Practitioner Gerontology | DX: N40.1 Benign prostatic hyperplasia with lower urinary tract symptoms (principal) | CPT/HCPCS: 81003; 87077; 99213; 87086; 87186 ==

== ENCOUNTER → 2020-04-10 08:49 | Outpatient (BNVA) | payer MEDICARE, OTHER, SELFPAY | PROVIDERS: PCP Family Medicine; Referring Provider Family Medicine; Visit Provider Nurse Practitioner Gerontology | DX: N40.1 Benign prostatic hyperplasia with lower urinary tract symptoms (principal); R10.32 Left lower quadrant pain; R31.0 Gross hematuria; Z80.42 Family history of malignant neoplasm of prostate | CPT/HCPCS: 81003; 99213 ==

== ENCOUNTER 2020-04-10 10:17 | Outpatient (REF) | payer MEDICARE, OTHER, SELFPAY ==
[2020-04-11 10:53] LABS: PSA, Screening 2.4 ng/mL (0.0-6.5)
== END 2020-04-10 10:37 ==
LOC: LBN 10:17
PROVIDERS: PCP Family Medicine; Visit Provider Nurse Practitioner Gerontology
DX: N40.1 Benign prostatic hyperplasia with lower urinary tract symptoms (principal); Z12.5 Encounter for screening for malignant neoplasm of prostate; Z80.42 Family history of malignant neoplasm of prostate
CPT/HCPCS: 84153; 87086

== ENCOUNTER 2020-05-22 12:04 | Outpatient (CLI) | payer MEDICARE, OTHER, SELFPAY ==
--- NOTE | 2020-05-22 12:20 | DI.RAD_ITS ---
EXAM: XR HIP LT COMPLETE AP PELVIS CLINICAL HISTORY: Pain left hip M25.552. TECHNIQUE: 2D digital imaging was performed. COMPARISON: CR RT HIP COMPLETE AP PELVIS from 09/01/2017 FINDINGS: BONES: No acute fracture is present. No bony destructive lesion is seen. JOINTS: No dislocation present. Joint space is well maintained. Mild degenerative changes are seen in the lower lumbar spine. SOFT TISSUE: Soft tissue calcifications are seen adjacent to the left acetabulum. There are surgical clips again seen in the pelvis. IMPRESSION: Unremarkable radiographs of the left hip. Mild degenerative changes in the lumbar spine. DATA REPOSITORY: RADIATION DOSE DELIVERED:
== END 2020-05-22 12:24 ==
PROVIDERS: PCP Family Medicine; Visit Provider Family Medicine
DX: M25.552 Pain in left hip (principal)
CPT/HCPCS: 73502

== ENCOUNTER 2020-05-25 01:16 | Outpatient (CLI) | payer MEDICARE, OTHER, SELFPAY ==
[2020-05-25 11:04] LABS: HCT 38.9 % (40.0-50.0); HGB 12.9 g/dL (13.5-17.5); Mean Corp. HGB Concentration 33.2 g/dL (32.0-36.0); Mean Corpuscular Hemoglobin 33.2 pg (27.0-33.0); Mean Corpuscular Volume 100.3 fL (80-95); Mean Platelet Volume 11.2 fL (8.0-11.0); Platelet Count 193 x1000/uL (130-400); RBC 3.88 m/cumm (4.50-6.00); RBC Distribution Width 12.3 % (11.8-14.1); White Blood Cell Count 6.28 k/cumm (4.4-10.8)
[2020-05-25 11:09] LABS: ALT 28 U/L (16-63); AST 18 U/L (15-37); Albumin 3.9 g/dL (3.4-5.0); Alkaline Phosphatase 73 U/L (46-116); Anion Gap 9.9 mmol/L (3-11); BUN 12 mg/dL (7-18); Bilirubin, Total 0.4 mg/dL (0.2-1.0); CO2 25.1 mmol/L (21.0-32.0); CREATININE 1.13 mg/dL (0.70-1.30); Calcium 9.7 mg/dL (8.5-10.1); Chloride 106 mmol/L (98-107); Glucose 131 mg/dL (74-106); Potassium 4.3 mmol/L (3.5-5.1); Sodium 141 mmol/L (136-145); Total Protein 7.8 g/dL (6.4-8.2)
== END 2020-05-25 01:36 ==
PROVIDERS: PCP Family Medicine; Visit Provider Family Medicine
DX: K51.811 Other ulcerative colitis with rectal bleeding (principal); M25.552 Pain in left hip
CPT/HCPCS: 36415; 80053; 85027

== ENCOUNTER → 2020-06-01 10:59 | Outpatient (BNVA) | payer MEDICARE, OTHER, SELFPAY | PROVIDERS: PCP Family Medicine; Referring Provider Family Medicine; Visit Provider Surgery | DX: R10.32 Left lower quadrant pain (principal); E11.42 Type 2 diabetes mellitus with diabetic polyneuropathy; M54.16 Radiculopathy, lumbar region; Z79.4 Long term (current) use of insulin; J44.9 Chronic obstructive pulmonary disease, unspecified; Z87.891 Personal history of nicotine dependence | CPT/HCPCS: 99213; 96372 ==

== ENCOUNTER 2020-06-19 01:34 | Outpatient (CLI) | payer MEDICARE, OTHER, SELFPAY ==
--- NOTE | 2020-06-19 08:15 | DI.MRI_ITS ---
EXAM: MR LUMBAR SPINE WO CLINICAL HISTORY: inguinal pain,radiculopathy lumbar region,m54.15,r10.30. TECHNIQUE: Multiplanar multisequence MRI was performed. COMPARISON: MR MRI - LUMBAR SPINE WO CONTRAST from 11/20/[address] ABDOMEN PELVIS WO/W from 11/28/2019 CR XR HIP LT COMPLETE AP PELVIS from 05/22/2020 FINDINGS: The conus medullaris appears normal and terminates at the L1 level. T12-L1 disc is intact. There is moderate loss of disc height and concentric bulging of the L1-2 disc. There are mild facet degenerative changes but no significant central canal stenosis.. There is mild bilateral neural fora faina narrowing. At L2-3, there is marked loss of disc height eccentric toward the left. There are prominent disc ost eophytes on the left side. There is severe left neural foraminal encroachment. There are mild facet degenerative changes combining with the disc osteophytes to produce a moderate degree of central can al stenosis. At L3-4, there is broad-based disc bulging and small endplate osteophytes. There are mild facet dege nerative changes. There is mild bilateral neural foraminal narrowing. At L4-5, there is mild disc bulging and small endplate osteophytes which are eccentric toward the rig ht. There are facet degenerative changes and ligamentous hypertrophy combining with the disc osteoph ytes to produce a moderate degree of central canal stenosis. There is moderate right neural foramina l narrowing. L5-S1 disc shows minimal bulging. There are facet degenerative changes but no significant neural for aminal narrowing or central canal stenosis. IMPRESSION: Left-sided disc osteophytes at L2-3 cause severe neural foraminal narrowing and moderate central can al stenosis. Moderate central canal stenosis is also seen at L4-5. DATA REPOSITORY:
--- NOTE | 2020-06-19 08:15 | DI.MRI_ITS ---
EXAM: MR PELVIS WO CLINICAL HISTORY: INGUINAL PAIN,LOW ABD PAIN,LT TESTICULAR PAIN,R10.30,M54.16,N50.812 TECHNIQUE: Multiplanar multisequence MRI of Pelvis was performed. CONTRAST MATERIAL: Noncontrast COMPARISON: CT CT ABDOMEN PELVIS WO/W from 11/28/2019 FINDINGS: Diverticulosis is noted of the sigmoid colon. There is a fatty containing right inguinal hernia whic h appears unchanged when compared with the previous CT. There is no left inguinal hernia. There is no fluid within the inguinal canals. The bladder and prostate are unremarkable. There is no pelvic fluid. The marrow signal is normal.. There are no hip joint effusions. IMPRESSION: Fatty containing right inguinal hernia. Sigmoid diverticulosis. DATA REPOSITORY:
== END 2020-06-19 01:54 ==
PROVIDERS: PCP Family Medicine; Visit Provider Surgery
DX: M54.16 Radiculopathy, lumbar region (principal); N50.812 Left testicular pain; R10.30 Lower abdominal pain, unspecified; K40.90 Unilateral inguinal hernia, without obstruction or gangrene, not specified as recurrent; K57.30 Diverticulosis of large intestine without perforation or abscess without bleeding
CPT/HCPCS: 72148; 72195

== ENCOUNTER 2020-07-11 13:50 | Outpatient (REF) | payer MEDICARE, OTHER, SELFPAY | END 2020-07-11 14:10 | LOC: LBN 13:50 | PROVIDERS: PCP Family Medicine; Visit Provider Physician Assistant | DX: B37.81 Candidal esophagitis (principal); B37.0 Candidal stomatitis | CPT/HCPCS: 87070 ==

== ENCOUNTER 2020-08-16 12:12 | Outpatient (CLI) | payer MEDICARE, OTHER, SELFPAY ==
--- NOTE | 2020-08-16 06:00 | DI.RAD_ITS ---
EXAM: XR PAIN CLINIC LUMBAR SP 2V CLINICAL HISTORY: Left L2 Transforaminal Epidural Steroid Injection TECHNIQUE: 2D and realtime digital imaging was performed. CONTRAST MATERIAL: Refer to procedure report. COMPARISON: No exams were available for comparison FINDINGS: Fluoroscopy was provided for Dr. Nagy during the performance of a transforaminal epidural steroid in jection. Please refer to the procedure report for complete details. Fluoro time: 26.9 seconds IMPRESSION:
[2020-08-16 12:51] VITALS: BP 147/73; PULSE 68; RESP 16; TEMP 36.6; O2SAT 97
[2020-08-16] MEDS: Omnipaque 240 MG/ML 50 ML BTL IJ (13:24)
[2020-08-16] MEDS: Dexamethasone Sod. Phos./Pres-Free 10 MG/ML VIAL IJ (13:25)
--- NOTE | 2020-08-16 13:30 | PDOC.PAIN ---
Pain Clinic Procedure Note Procedure Note Procedure Note: LUMBAR / SACRAL TRANSFORAMINAL INJECTION NAYA BRAN has been referred to the [facility] for a transforaminal nerve root block and steroid injection. COMMENTS: I did review Ms. Torres's note from when the patient was seen in our clinic. I also reviewed his most recent imaging. DX: Lumbosacral radiculopathy Patient was interviewed and the medical record reviewed. There were no medical, pharmacologic, radiographic or other structural contraindications to attempting fluoroscopically guided transforaminal nerve root block and epidural steroid injection. Risks and expected side effects as well as potential benefit of the procedure were reviewed and voiced concerns addressed. The printed consent form was signed and witnessed. Standard time-out procedure was performed. Patient was placed in the prone position on the fluoroscopy table and automated blood pressure cuff and pulse oximeter applied. Fluoroscopy was utilized to identify the left L2 neural foramen between L2 and L3 . A skin pj was made for the needle insertion site. A Chlorhexadine prep was carried out, and sterile drapes were applied. Local anesthesia was achieved in the skin and subcutaneous tissues. A 22 gauge curved tip spinal needle was then inserted, advanced with fluoroscopic guidance into the neural foramen, confirmed on the lateral view. After negative aspiration, 2 ml of Omnipaque 240 was injected confirming position in A/P and lateral views. This showed a good spread of dye transforaminally into the epidural space. There was no vascular update with contrast injection under continuous fluoroscopy and digital substraction. 15 mg of Dexamethasone was injected, followed by 0.5 ml of 1% Xylocaine flush for the nerve root block, as well. There was no unusual discomfort expressed.The needle was withdrawn. The patient tolerated the procedure well. A Band-Aid was applied. Vital signs were stable throughout the procedure and were as recorded in nursing records. If given, dosages of intravenous drugs for anxiolysis and analgesia were documented in nursing records. Follow up plans and appointments were discussed. Post procedure instruction was given as documented in nursing records and patient was discharged in the care of an identified stunt driver. COMMENTS:If this procedure is found to be effective, it can be completed up to 3 times per 12 months. Gómez Nagy DO, MPH Pain Management CC: Josue Wilkinson MD
[2020-08-16 13:37] VITALS: BP 137/75; PULSE 79; RESP 16; O2SAT 98
== END 2020-08-16 12:32 ==
PROVIDERS: PCP Family Medicine; Visit Provider Preventive Medicine Occupational Medicine
DX: M54.17 Radiculopathy, lumbosacral region (principal)
CPT/HCPCS: 62323; 72100; Q9967

== ENCOUNTER → 2020-10-17 12:39 | Outpatient (BNVA) | payer MEDICARE, OTHER, SELFPAY | PROVIDERS: PCP Family Medicine; Referring Provider Family Medicine; Visit Provider Nurse Practitioner Gerontology | DX: N40.1 Benign prostatic hyperplasia with lower urinary tract symptoms (principal); R31.0 Gross hematuria; Z80.42 Family history of malignant neoplasm of prostate; E11.42 Type 2 diabetes mellitus with diabetic polyneuropathy; Z79.4 Long term (current) use of insulin; I10 Essential (primary) hypertension; J44.9 Chronic obstructive pulmonary disease, unspecified; Z87.891 Personal history of nicotine dependence | CPT/HCPCS: 99213 ==

== ENCOUNTER 2020-10-23 08:34 | Outpatient (CLI) | payer MEDICARE, OTHER, SELFPAY ==
[2020-10-25 16:15] LABS: Patient Race White; SARS-CoV-2 RNA Undetected (Undetected); SARS-CoV-2 Specimen Source Nasal
== END 2020-10-23 08:54 ==
PROVIDERS: PCP Family Medicine; Visit Provider Family Medicine
DX: R51.9 Headache, unspecified (principal); R06.02 Shortness of breath; R11.10 Vomiting, unspecified
CPT/HCPCS: U0003

== ENCOUNTER 2020-11-28 02:43 | Outpatient (CLI) | payer MEDICARE, OTHER, SELFPAY ==
--- NOTE | 2020-11-28 | DI.US_ITS ---
EXAM: US PAIN CLINIC NEEDLE GUIDANCE CLINICAL HISTORY: LT ILIOINGUINAL NEURALGIA,LT L2-3 RADICULOPATHY,ULTRASOUND GUIDED NERVE BLO TECHNIQUE: Ultrasound guidance was provided during pain management injection into left groin region COMPARISON: None FINDINGS: Submitted images reveal soft tissue needle left groin. IMPRESSION: DATA REPOSITORY:
[2020-11-28 13:01] VITALS: BP 110/70; PULSE 92; RESP 18; TEMP 36.4; O2SAT 96
--- NOTE | 2020-11-28 13:36 | PDOC.PAIN_ITS ---
Pain Clinic Procedure Note Procedure Note Procedure Note: Date of Procedure: November 28, 2020 ULTRASOUND GUIDED LEFT ILIOINGUINAL NERVE BLOCK DX: Peripheral neuropathy Pre-Procedural Evaluation: NAYA BRAN has been referred to the [facility] for an Ultrasound Guided left Ilioinguinal nerve block for a chief complaint of let groin pain. Pre-procedure Pain Score: 6/10 Patient was interviewed and the medical record reviewed. There were no medical, pharmacologic, radiographic, or other structural contraindications to preforming an ultrasound guided injection. Risks and expected side effects as well as potential benefits of the procedure were reviewed. The patient consent form was signed and witnessed. Standard time-out procedure was performed. The use of direct ultrasound visualization of the needle (rather than a non- guided injection) was required to increase patient safety by excluding inadvertent intramuscular, intratendinous, or intraneural needle placement and minimizing bleeding by avoiding osteochondral or vascular injury from the needle. Additionally, the increased accuracy of placement may increase clinical effectiveness and will allow higher diagnostic specificity when evaluating effectiveness of this injection. Procedure Description: The patient was placed in the supine position and automated blood pressure cuff and pulse oximeter applied for monitoring during the procedure and recorded in the medical record. Pre-injection ultrasound scanning of the area of interest was performed using linear transducer, identifying relevant anatomy, landmarks, and neurovascular structures allowing for optimal needle path. The site was then prepared in the usual sterile fashion, using thorough Chlorhexadine preparation of the skin and sterile draping. The same ultrasound transducer was then passed into the sterile field using sterile probe cover and sterile ultrasound gel. The injection target was again visualized. Skin and subcutaneous tissues were anesthetized with 2 mL of 1% Lidocaine. A 21 guage 3.5 Pajunk needle was placed under live ultrasound guidance, using an in- plane approach, to the target area. After visualization of the needle tip at the target area, a mixture of 4 mL 0.25% Bupivacaine and 1 cc of Depomedrol (40 mg/cc), totaling 5 mL of injectate was delivered after negative aspiration for blood. The needle was flushed with 1 cc of 0.25% Bupivacaine. Ultrasound images were captured and stored for documentation purposes. Post-procedure Pain Score: 0/10 Vital signs were stable throughout the procedure and were as recorded in the docflowsheet by the nursing staff. Follow up plans and appointments were discussed with the patient.Post procedure instruction was given as documented in nursing documentation and having met discharge criteria, they were discharged from the Pain Management Center. COMMENTS: Follow up as scheduled. This procedure can be completed up to 3 times per 12 months if it is found to be helpful. Gómez Nagy DO, MPH Pain Management
[2020-11-28 13:39] VITALS: PULSE 92; O2SAT 96
[2020-11-28] MEDS: Bupivacaine 0.25% Pres-Free 30 ML VIAL IJ (13:57)
[2020-11-28] MEDS: methylPREDNISolone ACETATE 40 MG/ML VIAL IJ (13:57)
== END 2020-11-28 03:03 ==
PROVIDERS: PCP Family Medicine; Visit Provider Preventive Medicine Occupational Medicine
DX: R10.32 Left lower quadrant pain (principal)
CPT/HCPCS: 64425; 76942; J1030

== ENCOUNTER 2021-01-31 03:41 | Outpatient (CLI) | payer MEDICARE, OTHER, SELFPAY ==
[2021-01-31 07:27] LABS: HCT 35.9 % (40.0-50.0); HGB 11.8 g/dL (13.5-17.5); MCH 33.1 pg (27.0-33.0); MCHC 32.9 % (32.0-36.0); MCV 100.8 fL (80-95); MPV 11.1 fL (8.0-11.0); Platelet Count 179 10^3/uL (130-400); RBC 3.56 10^6/uL (4.36-5.78); RDW 12.4 % (11.8-14.1); WBC 5.29 10^3/uL (4.4-10.8)
[2021-01-31 07:36] LABS: Hemoglobin A1C 7.5 % (<5.7)
[2021-01-31 08:19] LABS: COMMENT (LAB VIEW ONLY) 233.73 mg/dL; Microalb ug/mg Crea 24.4 ug/mg Cr
[2021-01-31 08:22] LABS: ALT 30 U/L (16-63); AST 14 U/L (15-37); Albumin 3.6 g/dL (3.4-5.0); Alkaline Phosphatase 72 U/L (46-116); Anion Gap 10.3 mmol/L (3-11); BUN 14 mg/dL (7-18); Bilirubin, Total 0.4 mg/dL (0.2-1.0); CO2 26.7 mmol/L (21.0-32.0); CREATININE 1.2 mg/dL (0.70-1.30); Calcium 9.1 mg/dL (8.5-10.1); Calculated LDL 148 mg/dL (<100); Chloride 106 mmol/L (98-107); Cholesterol 220 mg/dL (<200); Estimated GFR 59.51 (mL/min/1.73m2); Glucose 144 mg/dL (74-106); HDL Cholesterol 37 mg/dL (40-60); Potassium 3.8 mmol/L (3.5-5.1); Sodium 143 mmol/L (136-145); Total Protein 7.6 g/dL (6.4-8.2); Triglyceride 178 mg/dL (<150)
== END 2021-01-31 03:42 | disposition home or self-care (01) ==
LOC: LBO 03:41
PROVIDERS: PCP Family Medicine; Visit Provider Family Medicine
DX: E11.42 Type 2 diabetes mellitus with diabetic polyneuropathy (principal); Z79.4 Long term (current) use of insulin; K51.811 Other ulcerative colitis with rectal bleeding; J45.909 Unspecified asthma, uncomplicated
CPT/HCPCS: 36415; 80053; 80061; 85027; 82043; 82570; 83036

== ENCOUNTER → 2021-03-11 15:12 | Outpatient (BNVA) | payer MEDICARE, OTHER, SELFPAY | PROVIDERS: PCP Family Medicine; Referring Provider Family Medicine; Visit Provider Nurse Practitioner Gerontology | DX: N40.1 Benign prostatic hyperplasia with lower urinary tract symptoms (principal); R31.0 Gross hematuria; Z80.42 Family history of malignant neoplasm of prostate | CPT/HCPCS: 99214 ==

== ENCOUNTER → 2021-06-24 12:59 | Outpatient (BNVA) | payer MEDICARE, OTHER, SELFPAY | PROVIDERS: PCP Nurse Practitioner Family; Referring Provider Nurse Practitioner Family; Visit Provider Surgery | DX: R13.10 Dysphagia, unspecified (principal); K21.9 Gastro-esophageal reflux disease without esophagitis; E11.42 Type 2 diabetes mellitus with diabetic polyneuropathy; J44.9 Chronic obstructive pulmonary disease, unspecified | CPT/HCPCS: 99212; 99214 ==

== ENCOUNTER 2021-06-26 02:54 | Outpatient (CLI) | payer MEDICARE, OTHER, SELFPAY ==
[2021-06-26 12:11] LABS: Source Nasal/Nares
[2021-06-26 14:24] LABS: COVID-19 PCR Negative (Negative)
== END 2021-06-26 02:55 | disposition home or self-care (01) ==
LOC: LBO 02:54
PROVIDERS: PCP Nurse Practitioner Family; Visit Provider Surgery
DX: Z20.822 Contact with and (suspected) exposure to COVID-19 (principal); Z01.818 Encounter for other preprocedural examination
CPT/HCPCS: 87635

== ENCOUNTER 2021-06-28 11:57 | Day surgery (SDC) | payer MEDICARE, OTHER, SELFPAY ==
--- NOTE | 2021-06-27 14:38 | W.ANESPRE ---
General Info Height: 6 ft 3 in Weight: 116.573 kg Body Mass Index (BMI): 32.1 Surgical Procedure: Operation Date: 06/28/21 12:20 Proposed Procedures Side Surgeon p Gastroscopy Bettina Shipman, Meds Allergies and Home Medications Allergies Allergy/AdvReac Type Severity Reaction Status Date / Time hornet venom Allergy Severe Anaphylaxis Verified 06/28/21 12:24 cephalexin [From Keflex] AdvReac Intermediate headaches Verified 06/28/21 12:24 finasteride [From Proscar] AdvReac Intermediate testicle Verified 06/28/21 12:24 pain Tetracyclines AdvReac Intermediate NAUSEA Verified 06/28/21 12:24 erythromycin base AdvReac Unknown NAUSEA Verified 06/28/21 12:24 Home Medication Medication Instructions Recorded Uceris 1 appful VA .Q2D WEEKLY 10/18/18 fluticasone propionate 2 spr NS HS 10/18/18 acetaminophen 325 mg tablet 650 mg PO Q4H PRN tab 03/07/19 sulfasalazine 500 mg tablet 0.5 gm PO DAILY 10/11/19 glipizide 10 mg tablet 10 mg PO DAILY #90 tab-cap 12/03/20 albuterol sulfate 90 mcg/actuation 2 puff INHALATION Q6H PRN #1 12/07/20 aerosol inhaler inhaler folic acid 1 mg tablet 1 mg PO DAILY #90 tab-cap 12/07/20 losartan 50 mg tablet 50 mg PO DAILY #90 tab 12/07/20 metformin 1,000 mg tablet 1,000 mg PO DAILY #90 tab-cap 12/07/20 sumatriptan succinate 50 mg tablet 50 mg PO ONCE PRN #7 tab-cap 12/07/20 tamsulosin 0.4 mg capsule 0.8 mg PO HS #180 cap 12/18/20 pen needle, diabetic 31 gauge x #100 ea 01/18/21 5/ fluticasone propionate 110 1 puff INHALATION BID #12 g 03/04/21 mcg/actuation HFA aerosol inhaler blood sugar diagnostic #100 each 03/28/21 epinephrine 0.3 mg/0.3 mL 0.3 ml IM ONCE #1 each 05/01/21 injection, auto-injector omeprazole 40 mg capsule,delayed 40 mg PO DAILY #90 tab-cap 06/10/21 release propranolol 80 mg capsule,24 160 mg PO DAILY #180 tab 06/10/21 hr,extended release insulin glargine 100 unit/mL (3 65 unit SUBCUT HS #30 ml 06/20/21 mL) subcutaneous pen Current Visit Medications: Current Medications Generic Name Dose Route Start Last Admin Trade Name Yg PRN Reason Stop Dose Admin Ringer's Solution 1,000 mls @ 80 mls/hr 06/28/21 06:00 IV 07/27/21 23:59 INFUSION [facility] IV Miscellaneous Supplies 1 each 06/28/21 06:00 Iv Access IV 07/27/21 23:59 DIRECTED JANY Sodium Chloride 0 ml 06/28/21 06:00 Normal Saline Flush 10 Ml Syr IV 07/27/21 23:59 PRN PRN Sodium Chloride 0 ml 06/28/21 06:00 Normal Saline 10 Ml Vial IJ 07/27/21 23:59 DIRECTED PRN Sterile Water 0 ml 06/28/21 06:00 Water,Injection,Sterile 10 Ml Vial IJ 07/27/21 23:59 DIRECTED PRN PFSH Active Problems Active Problems: Problem Status Onset Code Thrush of mouth and esophagus B37.81, B37.0 Lumbar back pain with radiculopathy affecting left lower extremity M54.16 Inguinal pain R10.30 Left inguinal pain R10.32 Microscopic hematuria R31.29 BPH loc w urin obs/LUTS N40.1 Pain in left testicle N50.812 Colon polyp K63.5 Diverticulosis of sigmoid colon K57.30 Family history of colon cancer Z80.0 History of tobacco use Z87.891 Hydrocele N43.3 Prostatitis N41.9 Inguinodynia, left R10.32 Ulcerative colitis K51.90 Right lumbar radiculopathy 12/06/15 M54.16 Hearing loss H91.90 Gastroesophageal reflux disease K21.9 Diabetic peripheral neuropathy associated with type 2 diabetes mellitus 12/18/17 E11.42 Diabetes mellitus 03/10/13 E11.9 Asthma J45.909 Medical History Medical History Abnormal colonoscopy 02/22/19 tubular adenoma ascending and transverse colon, sessile serrated adenoma @ 50cm, rectosigmoid colon moderately active chronic colitis/proctitis. mg Asthma COPD (chronic obstructive pulmonary disease) Diabetes mellitus (03/10/13) Diabetic peripheral neuropathy associated with type 2 diabetes mellitus (12/18/17) DM2 (diabetes mellitus, type 2) Essential hypertension Gastroesophageal reflux disease GERD (gastroesophageal reflux disease) Hearing loss Inguinal hernia of left side without obstruction or gangrene Inguinodynia, left Lumbar back pain with radiculopathy affecting left lower extremity Skin cancer, basal cell (10/08/16) Subdural hemorrhage Ulcerative colitis mild Ulcerative colitis Surgical History [place] [facility] [place] [facility] [place] History of herniorrhaphy (10/19/18) left indirect, dr perez History of open reduction and internal fixation (ORIF) procedure wrist and ankle Tobacco Smoking/Tobacco Use Status: Former Tobacco Use Second hand exposure: Yes Alcohol Alcohol Intake: former Substance Use Substance use: Never Substance use type: does not use Vital Signs and Lab Results Vital Signs Most Recent Vital Signs in EMR: Temp Pulse Resp BP Pulse Ox 36.6 C 70 18 163/80 H 97 06/28/21 12:16 06/28/21 12:16 06/28/21 12:16 06/28/21 12:16 06/28/21 12:16 Lab Results Blood Type / Crossmatch: No Data to Display Complete Blood Count: No Data to Display Complete Metabolic Panel: No Data to Display Liver Function Panel: No Data to Display Coagulation Panel: No Data to Display Cardiac Panel: No Data to Display Arterial Blood Gas: No Data to Display Venous Blood Gas: No Data to Display Pancreas Panel: No Data to Display Thyroid Panel: No Data to Display Infectious Disease: Coronavirus (COVID-19)(PCR) Negative (Negative) 06/26/21 09:03 06/26/21 Coronavirus 2019 Source Nasal/Nares 06/26/21 09:03 06/26/21 Blood Cultures: No Data to Display Toxicology Panel: No Data to Display Anesthesia Assessment and Plan Anesthesia History Personal History: No History of Anesthesia Complications Family History: No Family History of Anesthesia Complications Exercise Tolerance Exercise Tolerance: Metabolic Equivalents>4 ASA Classification ASA Score: ASA 2 Anesthesia Plan Resuscitation Status: Full Code Anesthesia Technique: General Anesthesia Airway Planned: Natural Airway Monitors Used: Standard Monitors Preoperative Comments:: 71 yo male for EGD for difficulty swallowing. pmhx COPD, DM with neuropathy, HTN, GERD, Previous anesthesia LMA 5, rivera 2 grade 1.
[2021-06-28 12:16] VITALS: BP 163/80; PULSE 70; RESP 18; TEMP 36.6; O2SAT 97
[2021-06-28] MEDS: Lactated Ringers 1,000 ML 80 ML IV (12:42)
--- NOTE | 2021-06-28 13:07 | W.ANESPRE ---
General Info Date of Service Date Performed: 06/28/21 Height: 6 ft 3 in Weight: 115 kg Body Mass Index (BMI): 31.6 Surgical Procedure: Operation Date: 06/28/21 12:20 Proposed Procedures Side Surgeon p Gastroscopy Bettina Shipman, Meds Allergies and Home Medications Allergies Allergy/AdvReac Type Severity Reaction Status Date / Time hornet venom Allergy Severe Anaphylaxis Verified 06/28/21 12:24 cephalexin [From Keflex] AdvReac Intermediate headaches Verified 06/28/21 12:24 finasteride [From Proscar] AdvReac Intermediate testicle Verified 06/28/21 12:24 pain Tetracyclines AdvReac Intermediate NAUSEA Verified 06/28/21 12:24 erythromycin base AdvReac Unknown NAUSEA Verified 06/28/21 12:24 Home Medication Medication Instructions Recorded Uceris 1 appful NC .Q2D WEEKLY 10/18/18 fluticasone propionate 2 spr NS HS 10/18/18 acetaminophen 325 mg tablet 650 mg PO Q4H PRN tab 03/07/19 sulfasalazine 500 mg tablet 0.5 gm PO DAILY 10/11/19 glipizide 10 mg tablet 10 mg PO DAILY #90 tab-cap 12/03/20 albuterol sulfate 90 mcg/actuation 2 puff INHALATION Q6H PRN #1 12/07/20 aerosol inhaler inhaler folic acid 1 mg tablet 1 mg PO DAILY #90 tab-cap 12/07/20 losartan 50 mg tablet 50 mg PO DAILY #90 tab 12/07/20 metformin 1,000 mg tablet 1,000 mg PO DAILY #90 tab-cap 12/07/20 sumatriptan succinate 50 mg tablet 50 mg PO ONCE PRN #7 tab-cap 12/07/20 tamsulosin 0.4 mg capsule 0.8 mg PO HS #180 cap 12/18/20 pen needle, diabetic 31 gauge x #100 ea 01/18/2104/07 fluticasone propionate 110 1 puff INHALATION BID #12 g 03/04/21 mcg/actuation HFA aerosol inhaler blood sugar diagnostic #100 each 03/28/21 epinephrine 0.3 mg/0.3 mL 0.3 ml IM ONCE #1 each 05/01/21 injection, auto-injector omeprazole 40 mg capsule,delayed 40 mg PO DAILY #90 tab-cap 06/10/21 release propranolol 80 mg capsule,24 160 mg PO DAILY #180 tab 06/10/21 hr,extended release insulin glargine 100 unit/mL (3 65 unit SUBCUT HS #30 ml 06/20/21 mL) subcutaneous pen Current Visit Medications: Current Medications Generic Name Dose Route Start Last Admin Trade Name Freq PRN Reason Stop Dose Admin Hyoscyamine Sulfate 0.125 mg 06/27/21 15:43 Hyoscyamine 0.125 Mg Sl/Oral/Chew SL DIRECTED PRN Ringer's Solution 1,000 mls @ 80 mls/hr 06/28/21 06:00 06/28/21 12:42 IV 07/27/21 23:59 80 mls/hr INFUSION JANY Administration IV Miscellaneous Supplies 1 each 06/28/21 06:00 Iv Access IV 07/27/21 23:59 DIRECTED JANY Ondansetron HCl 4 mg 06/27/21 15:43 Ondansetron 4 Mg/2 Ml Vial IVP Q4H PRN PRN Nausea / Vomiting Sodium Chloride 0 ml 06/28/21 06:00 Normal Saline Flush 10 Ml Syr IV 07/27/21 23:59 PRN PRN Sodium Chloride 0 ml 06/28/21 06:00 Normal Saline 10 Ml Vial IJ 07/27/21 23:59 DIRECTED PRN Sterile Water 0 ml 06/28/21 06:00 Water,Injection,Sterile 10 Ml Vial IJ 07/27/21 23:59 DIRECTED PRN PFSH Active Problems Active Problems: Problem Status Onset Code Hiatal hernia with GERD K21.9, K44.9 Thrush of mouth and esophagus B37.81, B37.0 Lumbar back pain with radiculopathy affecting left lower extremity M54.16 Inguinal pain R10.30 Left inguinal pain R10.32 Microscopic hematuria R31.29 BPH loc w urin obs/LUTS N40.1 Pain in left testicle N50.812 Colon polyp K63.5 Diverticulosis of sigmoid colon K57.30 Family history of colon cancer Z80.0 History of tobacco use Z87.891 Hydrocele N43.3 Prostatitis N41.9 Inguinodynia, left R10.32 Ulcerative colitis K51.90 Right lumbar radiculopathy 12/06/15 M54.16 Hearing loss H91.90 Gastroesophageal reflux disease K21.9 Diabetic peripheral neuropathy associated with type 2 diabetes mellitus 12/18/17 E11.42 Diabetes mellitus 03/10/13 E11.9 Asthma J45.909 Medical History Medical History Abnormal colonoscopy 02/22/19 tubular adenoma ascending and transverse colon, sessile serrated adenoma @ 50cm, rectosigmoid colon moderately active chronic colitis/proctitis. mg Asthma COPD (chronic obstructive pulmonary disease) Diabetes mellitus (03/10/13) Diabetic peripheral neuropathy associated with type 2 diabetes mellitus (12/18/17) DM2 (diabetes mellitus, type 2) Essential hypertension Gastroesophageal reflux disease GERD (gastroesophageal reflux disease) Hearing loss Inguinal hernia of left side without obstruction or gangrene Inguinodynia, left Lumbar back pain with radiculopathy affecting left lower extremity Skin cancer, basal cell (10/08/16) Subdural hemorrhage Ulcerative colitis mild Ulcerative colitis Surgical History Surgical History Cholecystectomy [place] [facility] [place] [facility] [place] of [place]ectomy History of herniorrhaphy (10/19/18) left indirect, dr perez History of open reduction and internal fixation (ORIF) procedure wrist and ankle Tobacco Smoking/Tobacco Use Status: Former Tobacco Use (Quit 30 years ago, was smoking 4 packs a day) Second hand exposure: Yes Alcohol Alcohol Intake: former Substance Use Substance use: Never Substance use type: does not use Vital Signs and Lab Results Vital Signs Most Recent Vital Signs in EMR: Most Recent Vital Signs Temp Pulse Resp BP Pulse Ox 36.6 C 70 18 163/80 H 97 06/28/21 12:16 06/28/21 12:16 06/28/21 12:16 06/28/21 12:16 06/28/21 12:16 Lab Results Blood Type / Crossmatch: No Data to Display Complete Blood Count: No Data to Display Complete Metabolic Panel: No Data to Display Liver Function Panel: No Data to Display Coagulation Panel: No Data to Display Cardiac Panel: No Data to Display Arterial Blood Gas: No Data to Display Venous Blood Gas: No Data to Display Pancreas Panel: No Data to Display Thyroid Panel: No Data to Display Infectious Disease: Coronavirus (COVID-19)(PCR) Negative (Negative) 06/26/21 09:03 06/26/21 Coronavirus 2019 Source Nasal/Nares 06/26/21 09:03 06/26/21 Blood Cultures: No Data to Display Toxicology Panel: No Data to Display Anesthesia Assessment and Plan Anesthesia History Personal History: No History of Anesthesia Complications Family History: No Family History of Anesthesia Complications Exercise Tolerance Exercise Tolerance: Metabolic Equivalents>4 Pertinent Negatives Pertinent Negatives: No Symptoms of GERD (Well controlled with omeprazole), No Major Cardiovascular Symptoms or Complaints, No Major Pulmonary Symptoms or Complaints (Feels a little tight today, updraft ordered) and No History of CVA/TIA Cardiac & Pulmonary Exam Cardiac Exam: Normal S1/S2 Heart Sounds Pulmonary Exam: Clear Bilateral Breath Sounds Airway Exam Known Difficult Airway: No Mallampati Class: 1 Mouth Opening: Normal (> 3cm) Thyromental Distance: Greater than 3 cm Neck Range of Motion: Full ROM Neck Circumference: Normal Teeth Condition: Edentulous ASA Classification ASA Score: ASA 2 Emergency Case?: No NPO Status NPO Status: NPO Clears >2 hours, Solids >8 hours Anesthesia Plan Resuscitation Status: Full Code Anesthesia Technique: General Anesthesia Airway Planned: Natural Airway Monitors Used: Standard Monitors
[2021-06-28 13:12] VITALS: BMI 31.6
[2021-06-28 13:27] VITALS: RESP 1
[2021-06-28] MEDS: Albuterol/Ipratropium 3 ML UPD VIAL UPD (13:27)
[2021-06-28 13:28] VITALS: RESP 1
--- NOTE | 2021-06-28 13:34 | W.ANESPOSTOP ---
Postoperative Evaluation Date, Time and Location Date Performed: 06/28/21 Time Performed: 13:34 Patient Location: Day Surgery Unit Vital Signs Most Recent Imported Vital Signs: Most Recent Vital Signs Temp Pulse Resp BP Pulse Ox 36.6 C 70 18 163/80 H 97 06/28/21 12:16 06/28/21 12:16 06/28/21 12:16 06/28/21 12:16 06/28/21 12:16 Most Recent Manually Entered Vital Signs: Adult Blood Pressure: 116/65 Heart Rate: 75 Respirations: 12 Oxygen Saturation (%): 97 Temperature (C): 36.3 C Pain Score (0-10 Scale): 0 Pain Score Most Recent Pain Score: Most Recent Pain Score Pain Level 0 06/28/21 12:16 Assessment Mental Status: Awake (Alert & Oriented to Patient Baseline) Airway and Respiratory Function: Patent airway with normal (patient baseline) respiratory exam Cardiovascular Function: Hemodynamically Stable Hydration Status: Adequately Hydrated Nausea & Vomiting: No Nausea or Vomiting Pain: Pt. Denies Any Pain Peripheral Nerve Block: Patient did not receive a nerve block
[2021-06-28 13:35] VITALS: BP 116/65; PULSE 75; RESP 12; TEMPC 36.3; O2SAT 97
--- NOTE | 2021-06-28 13:55 | BOWEL_PTH ---
PATIENT: Brian Rodriguez LOC: [facility] U#:[id number] AGE/SX: 71/M ROOM: RE06/28/[address]: Bettina Shipman : 1950 BED: DIS: 06/28/2021 SPEC #: [id number] RECD: 06/28/21 14:21 STATUS: RUSSELL RELexi #: [id number] CRUZ: 06/28/21 13:[address]: Bettina Shipman DEPT: Surgical Specimen RECD BY: Madalyn Benjamin ENTERED: 06/28/21 14:26 SP TYPE: Bowel OTHR DR: Deacon Watters, HOMEOPATHIC DOCTOR Tissues: 1 - BIOPSY BOWEL 2 - BIOPSY BOWEL 3 - STOMACH BIOPSY 4 - STOMACH BIOPSY 5 - ESOPHAGUS BIOPSY 6 - ESOPHAGUS BIOPSY Procedures: GROSS AND MICRO LEVEL 4 Comments: [id number]
--- NOTE | 2021-06-28 14:11 | PDOC.DSDIS_ITS ---
Discharge Plan Disposition Patient Disposition: HOME Condition: Good Discharge Details Reason For Visit: EGD Attending Provider: Bettina Shipman Primary Care Provider: Deacon Watters Home Meds and New Rx's Prescriptions: New pantoprazole [Protonix] 40 mg tablet,delayed release (DR/EC) 40 mg PO DAILY Qty: 30 RF: 12 Continued Flovent HFA 110 mcg/actuation HFA aerosol inhaler 1 puff inhalation BID Qty: 12 RF: 4 acetaminophen [Tylenol] 325 mg tablet 650 mg PO Q4H PRN RF: 0 sulfasalazine 500 mg tablet 0.5 gm PO DAILY RF: 0 glipizide 10 mg tablet 10 mg PO DAILY Qty: 90 RF: 4 albuterol sulfate [ProAir HFA] 90 mcg/actuation HFA aerosol inhaler 2 puff Inhalation Q6H PRN Qty: 1 RF: 4 folic acid 1 mg tablet 1 mg PO DAILY Qty: 90 RF: 4 losartan 50 mg tablet 50 mg PO DAILY Qty: 90 RF: 4 metformin 1,000 mg tablet 1,000 mg PO DAILY Qty: 90 RF: 4 sumatriptan succinate [Imitrex] 50 mg tablet 50 mg PO ONCE PRN (Reason: migraine headache) Qty: 7 RF: 5 tamsulosin 0.4 mg capsule 0.8 mg PO HS Qty: 180 RF: 3 (DME) pen needle, diabetic [Pen Needle] 31 gauge x 5/16 needle 1 ea Miscellaneous DAILY Qty: 100 RF: 4 (DME) OneTouch Ultra Blue Test Strip Strip See Rx Instructions .ROUTE .MEDSUPPLY Qty: 100 RF: 4 epinephrine [EpiPen] 0.3 mg/0.3 mL auto-injector 0.3 ml IM ONCE Qty: 1 RF: 0 propranolol [Inderal LA] 80 mg capsule,extended release 24 hr 160 mg PO DAILY Qty: 180 RF: 4 Basaglar KwikPen U-100 Insulin 100 unit/mL (3 mL) insulin pen 65 unit subcut HS Qty: 30 RF: 4 fluticasone propionate 16 GM spray,suspension 2 spr NS HS RF: 0 Uceris 2 mg/actuation Foam 1 appful [place] .Q2D WEEKLY RF: 0 Discontinued omeprazole 40 mg capsule,delayed release(DR/EC) 40 mg PO DAILY Qty: 90 RF: 1 Discharge Instructions Additional Instructions: [facility] Colonoscopy Post- Op Instructions Instructions for Everyone who is given Anesthesia: For your safety, please do the following for the next twenty-four (24) hours: *Do Not operate a motor vehicle (car, truck, motorcycle, etc.) *Do Not drink alcoholic beverages or use any recreational drugs for the first 24 hours or while taking pain medications. The medications in your body may have a reaction that can be dangerous. *Do Not make any important decisions or sign any important papers. Findings:mild gastritis & esophagtisis Continue with lifestyle modifications: no alcohol, tobacco products, Aspirin or NSAID's (ibuprofen, Motrin, Naprosyn, aleve, etc), soda pop/any carbonated beverages, caffeine (including tea & chocolate). Try to avoid acidic foods, (tomatoes, citrus, onions, peppermints) spicy or fried/fatty foods. Do not lie down for 30 minutes after eating, and do not eat 2 hours prior to bedtime. Avoid wearing tight fitting clothing/ belts Follow up: My office will send a letter in 2 to 3 weeks time detailing the results of the biopsies 1. No lifting over 20 pounds or strenuous activity for the first 24 hours after your procedure. After 24 hours there are no restrictions on your activity but you may feel fatigued for a few days. 2. After you arrive home you may have a light meal and return to your normal diet as you can tolerate it without feeling sick to your stomach. 3. You may have a bloated, gaseous feeling in your belly (abdomen) after a colonoscopy. Passing gas and belching will help. Walking or lying down on your left side with your knees flexed may relieve the discomfort. Call the office at [phone] (Office) or [phone] (Hospital) right away if you notice any of the following: a.Vomiting of blood or ?coffee ground stools?. b.Rectal bleeding 1Tbsp, blood clots or continuous bleeding. c.Severe belly (abdominal) pain. d.A hard distended belly (abdomen) and an inability to pass gas. 4. Please don?t expect to have a normal BM (bowel movement) for 2-3 days after your procedure. 5. If there are questions regarding the findings of your procedure, please contact your doctor 6. If you are unable to contact your doctor with a problem, contact the hospital at [phone]. 7. Continue all your regular medications unless directed otherwise. I understand the above instructions and have no questions. Signature of Patient or Adult Escort Name of Responsible Adult Escort Signature of Nurse Date/Time Activity:: see above Diet:: Carb Counting Discharge Orders Discharge Orders: Discharge Order (Routine); Ordered 06/27/21 Ordered By: Bettina Shipman DS: Diagnosis Discharge Diagnosis (1) Hiatal hernia with GERD: Status: Acute
[2021-06-28 14:12] VITALS: BP 163/80; PULSE 70; RESP 18; TEMP 36.6; O2SAT 97
--- NOTE | 2021-06-28 14:19 | W.PM.ENDDOP ---
Date of service: 06/28/21 Time of Service: 14:20 Endoscopy Report DATE OF PROCEDURE: 06/28/21 PRE-OP DIAGNOSIS: dysphagia POST-OP DIAGNOSIS: other (gerd and hiatal hernia ) SURGEON: Bettina Shipman ANESTHESIA TYPE: General:No Airway ESTIMATED BLOOD LOSS: 1 PATHOLOGY: none sent COMPLICATIONS: None DISPOSITION: same day PROCEDURE DESCRIPTION: After informed consent was obtained the patient was take to the procedure room and placed in a supine position. Monitors were applied and a time out was done. The patients name, date of , procedure type, allergies to medications and metal in their body was reviewed. A bite block was placed and the patient was sedated. Once sedated and comfortable the gastroscope was advanced through the oropharynx which was grossly normal into the esophagus. The proximal and mid-esophagus were nl. In the distal esophagus there was no esophageal erosions/varicies/divertiucla or strictures apparent. He does have a very minnute hiatal hernia <1cm. The scope was advanced into the stomach and through the pylorus into the 3rd portion of the duodenum. The duodenum was noted to be nl. Biopsies were done-all specimen is retrieved and no bleeding is noted. The scope was retracted back into the stomach and biopsies were done to rule out H. pylori. There were no ulcers. There is some mild gastritis at the antrum the scope was retroflexed. The cardia and fundus were noted to be normal. The scope was retracted back into the esophagus and biopsies were done of the GE junction to rule out Mejia's. The Z line was irregular. The GE junction was at 40 cm. The scope was removed and the patient was woken up and taken back to [facility] in stable condition.
[2021-06-28 14:46] VITALS: BP 115/76; PULSE 76; RESP 18; TEMP 36.4; O2SAT 95
== END 2021-06-28 15:10 | disposition home or self-care (01) ==
PROVIDERS: PCP Nurse Practitioner Family; Visit Provider Surgery
PROC: 0DJ68ZZ Inspection of Stomach, Via Natural or Artificial Opening Endoscopic (ICD-10-PCS; CPT 43235; principal; 2021-06-28 12:15)
DX: K21.00 Gastro-esophageal reflux disease with esophagitis, without bleeding (principal); K44.9 Diaphragmatic hernia without obstruction or gangrene; K29.70 Gastritis, unspecified, without bleeding; K31.89 Other diseases of stomach and duodenum
CPT/HCPCS: 43239; 88305; 94640; J2001; J7620

== ENCOUNTER 2021-07-08 17:35 | Outpatient (REF) | payer MEDICARE, OTHER, SELFPAY ==
[2021-07-10 13:57] LABS: COVID-19 RT-PCR UVMMC Result Negative (Negative)
== END 2021-07-08 17:36 | disposition home or self-care (01) ==
LOC: LBN 17:35
PROVIDERS: PCP Nurse Practitioner Family; Visit Provider Physician Assistant
DX: J02.9 Acute pharyngitis, unspecified (principal); Z20.822 Contact with and (suspected) exposure to COVID-19
CPT/HCPCS: U0003; U0005; 87070

== ENCOUNTER → 2021-07-18 09:52 | Outpatient (BNVA) | payer MEDICARE, OTHER, SELFPAY | PROVIDERS: PCP Nurse Practitioner Family; Referring Provider Nurse Practitioner Family; Visit Provider Surgery | DX: Z48.815 Encounter for surgical aftercare following surgery on the digestive system (principal); K21.9 Gastro-esophageal reflux disease without esophagitis; K44.9 Diaphragmatic hernia without obstruction or gangrene; K51.811 Other ulcerative colitis with rectal bleeding; R30.0 Dysuria | CPT/HCPCS: 81003; 99213 ==

== ENCOUNTER 2021-07-18 17:30 | Outpatient (REF) | payer MEDICARE, OTHER, SELFPAY ==
[2021-07-18 13:22] LABS: Bilirubin Negative (Negative); Blood Small (Negative); Clarity Clear (Clear); Glucose Negative (Negative); Ketones Negative (Negative); Leukocyte Esterase Moderate (Negative); Nitrite Negative (Negative); Specific Gravity 1.025 (1.005-1.025); Urobilinogen 0.2 EU/dL (Up TO 0.2); pH 5.5 (5-8)
[2021-07-18 13:26] LABS: Bacteria Few HPF (Negative); C & S Indicated? Yes; Casts Negative LPF (Negative); Crystals Negative HPF (Negative); Epithelial Cells Rare HPF (Negative); Mucus Trace (Negative)
== END 2021-07-18 17:31 | disposition home or self-care (01) ==
LOC: LBN 17:30
PROVIDERS: PCP Nurse Practitioner Family; Visit Provider Surgery
DX: R30.0 Dysuria (principal)
CPT/HCPCS: 81003; 81015; 87086

== ENCOUNTER → 2021-09-09 15:20 | Outpatient (BNVA) | payer MEDICARE, OTHER, SELFPAY | PROVIDERS: PCP Nurse Practitioner Family; Referring Provider Family Medicine; Visit Provider Nurse Practitioner Gerontology | DX: N40.1 Benign prostatic hyperplasia with lower urinary tract symptoms (principal); R31.0 Gross hematuria; N39.0 Urinary tract infection, site not specified; Z80.42 Family history of malignant neoplasm of prostate; Z79.899 Other long term (current) drug therapy | CPT/HCPCS: 81003; 99214 ==

== ENCOUNTER 2021-09-09 16:35 | Outpatient (REF) | payer MEDICARE, OTHER, SELFPAY | END 2021-09-09 16:36 | disposition home or self-care (01) | LOC: LBN 16:35 | PROVIDERS: PCP Nurse Practitioner Family; Visit Provider Nurse Practitioner Gerontology | DX: N39.0 Urinary tract infection, site not specified (principal) | CPT/HCPCS: 87077; 87086; 87186 ==

== ENCOUNTER → 2021-10-02 08:19 | Outpatient (BNVA) | payer MEDICARE, OTHER, SELFPAY | PROVIDERS: PCP Nurse Practitioner Family; Referring Provider Nurse Practitioner Family; Visit Provider Nurse Practitioner Gerontology | DX: N39.0 Urinary tract infection, site not specified (principal); N40.1 Benign prostatic hyperplasia with lower urinary tract symptoms; R31.0 Gross hematuria; Z80.42 Family history of malignant neoplasm of prostate | CPT/HCPCS: 81003; 99214 ==

== ENCOUNTER 2021-10-02 15:24 | Outpatient (REF) | payer MEDICARE, OTHER, SELFPAY | END 2021-10-02 15:25 | disposition home or self-care (01) | LOC: LBN 15:24 | PROVIDERS: PCP Nurse Practitioner Family; Visit Provider Nurse Practitioner Gerontology | DX: N39.0 Urinary tract infection, site not specified (principal) | CPT/HCPCS: 87077; 87086; 87186 ==

== ENCOUNTER 2021-11-18 08:52 | Outpatient (CLI) | payer MEDICARE, OTHER, SELFPAY ==
--- NOTE | 2021-11-18 08:45 | RT.EKG_ITS ---
APPROVED REPORT Exam: Resting ECG Reason for Exam: palpitations Patient Location: O HR:62 bpm ECG Measurements Heart Rate 62 AXIS CO 174 P 30 QRSd 150 QRS 48 QT 437 T 15 QTc 442 Conclusion Sinus rhythm...normal P axis, V-rate 60- 99 Right bundle branch block...QRSd>120, terminal axis(90,270)
== END 2021-11-18 08:53 | disposition home or self-care (01) ==
LOC: DI.CM 08:53
PROVIDERS: PCP Nurse Practitioner Family; Visit Provider Nurse Practitioner Family
DX: R00.2 Palpitations (principal); I45.10 Unspecified right bundle-branch block
CPT/HCPCS: 93010

== ENCOUNTER 2021-11-21 00:50 | Outpatient (CLI) | payer MEDICARE, OTHER, SELFPAY ==
--- NOTE | 2021-11-21 09:00 | ETT_ITS ---
APPROVED REPORT Exam: Exercise Treadmill Patient Location: Out-Patient Room/Bed: Stress Nurse: Deanne Grayson RN Ordering Provider:FREDI CALI, Contact Number: [phone] BMI: 30.79 Baseline Rhythm: Sinus Rhythm, RBBB Indications: Exertional dyspnea. Medical History Medical History: Exertional dyspnea, GERD, Asthma, DM, Migraines Cardiac Medications: Propanolol, Omeprazole, Metformin, Losartan, Insulin glargine, Glipizide, Albute ral Allergies: Cephalexin, Finasteride, Tetracyclines, Erythromycin base Cardiac Risk Factors: HTN, DM, Asthma, Smoking (former) Previous Cardiac Procedures: None Pretest Chest Pain Characteristics: Dyspnea, No chest pain Exercise History: Sedentary Physical Disabilities: Hips Lung Sounds: Clear to auscultation Heart Sounds: Regular Stress Test Details Test: Exercise stress testing was performed using a Trung protocol. Rest Stress HR Resting HR Supine: 60 bpm Max Heart Rate (APMHR): 147 bpm Resting HR Standin bpm Target HR (85% APMHR): 124 bpm Max HR Achieved: 125 bpm % of APMHR: 85 Recovery HR: 66 bpm HR response to stress: Normal HR response to stress Comment: Propranolol held for 24 hours. BP Resting BP Supine: 152/78 mmHg Resting BP Standin/78 mmHg Max BP: 182/72 mmHg Recovery BP: 158/76 mmHg BP response to stress: Normal blood pressure response to stress. ECG Resting ECG: Sinus Rhythm, RBBB Ectopy: PACs, PVCs Comment: inverted T waves in leads aVL, V1-V3 Stress ECG: Sinus Tachycardia, RBBB ST Change: No significant ST segment changes noted Arrhythmia: PACs, PVCs Comment: inverted T waves in leads aVL, V1-V4 Recovery ECG: Sinus Rhythm, RBBB Recovery ST Change: No significant ST segment changes noted Comment: inverted T waves in leads aVL, V1-V3. V4 T wave returning to baseline by 5 min recovery Clinical Reason for Termination: Dyspnea, Dizziness Stress Symptoms: Dyspnea, Dizziness Exercise duration: 4 min42 sec Highest Stage Reached: Stage 2: 2.5 mph at 12% grade. Exercise capacity: 6.66 METs Stout Treadmill Score: 3.5 Rate Pressure Product: [id number] Stress ECG Conclusion 1. The resting electrocardiogram showed right bundle branch block 2. Patient exercised on the Trung protocol and completed a workload of 6.66 METS, limited by shortnes s of breath and dizziness 3. Normal hemodynamic response to exercise. The patient achieved 85% of predicted heart rate for age 4. Electrocardiographically there was no evidence of myocardial ischemia 5. Sporadic atrial and ventricular ectopic beats were noted Stout Treadmill Score is 3.5 which is Moderate risk. Stress Test Summary STAGE Time (mins) Speed (mph) Grade (%) HR BP SYMPTOMS METS Supine 60 152/78 Standing 72 154/78 1 3 1.7 10 110 148/78 moderate SOB, lightheadedness 4.6 2 6 2.5 12 severe SOB 7 1 min recovery 102 182/72 SpO2 99%, severe SOB 3 min recovery 69 198/84 Symptoms resolved 6 min recovery 66 158/76
== END 2021-11-21 01:10 ==
PROVIDERS: PCP Nurse Practitioner Family; Visit Provider Nurse Practitioner Family
DX: R06.09 Other forms of dyspnea (principal); I45.10 Unspecified right bundle-branch block; I10 Essential (primary) hypertension; E11.9 Type 2 diabetes mellitus without complications; J45.909 Unspecified asthma, uncomplicated; Z87.891 Personal history of nicotine dependence; I49.1 Atrial premature depolarization; I49.3 Ventricular premature depolarization
CPT/HCPCS: 93016; 93018; 93017

== ENCOUNTER 2021-11-27 19:20 | Outpatient (REF) | payer MEDICARE, OTHER, SELFPAY ==
[2021-11-29 16:30] LABS: COVID-19 RT-PCR UVMMC Result Negative (Negative)
== END 2021-11-27 19:21 | disposition home or self-care (01) ==
LOC: LBN 19:20
PROVIDERS: PCP Nurse Practitioner Family; Visit Provider Physician Assistant
DX: J02.9 Acute pharyngitis, unspecified (principal); Z20.822 Contact with and (suspected) exposure to COVID-19
CPT/HCPCS: U0003; 87070

== ENCOUNTER 2022-01-01 12:56 | Emergency (ER) | payer MEDICARE, OTHER, SELFPAY ==
[2022-01-01 13:02] VITALS: BP 157/71; PULSE 74; RESP 16; TEMP 36.3; O2SAT 96
--- NOTE | 2022-01-01 13:17 | ED.GENADUL_ITS ---
Discharge Plan Disposition Patient Disposition: HOME Condition: Good Discharge Details Clinical Impression: Sprain of right shoulder Primary Care Provider: Deacon Watters ED Provider: Kenji Thomas Home Meds and New Rx's Prescriptions: Continued glipizide 10 mg tablet 10 mg PO DAILY Qty: 90 RF: 4 folic acid 1 mg tablet 1 mg PO DAILY Qty: 90 RF: 4 omeprazole 40 mg capsule,delayed release(DR/EC) 40 mg PO DAILY Qty: 90 RF: 3 nystatin 100,000 unit/mL suspension 500,000 unit buccal QID Qty: 480 RF: 0 Flovent HFA 110 mcg/actuation HFA aerosol inhaler 1 puff inhalation BID Qty: 12 RF: 4 acetaminophen [Tylenol] 325 mg tablet 650 mg PO Q4H PRN RF: 0 sulfasalazine 500 mg tablet 0.5 gm PO DAILY RF: 0 fluconazole 100 mg tablet 100 mg PO DAILY Qty: 8 RF: 0 albuterol sulfate [ProAir HFA] 90 mcg/actuation HFA aerosol inhaler 2 puff Inhalation Q6H PRN Qty: 1 RF: 4 losartan 50 mg tablet 50 mg PO DAILY Qty: 90 RF: 4 metformin 1,000 mg tablet 1,000 mg PO DAILY Qty: 90 RF: 4 sumatriptan succinate [Imitrex] 50 mg tablet 50 mg PO ONCE PRN (Reason: migraine headache) Qty: 7 RF: 5 (DME) pen needle, diabetic [Pen Needle] 31 gauge x 5/16 needle 1 ea Miscellaneous DAILY Qty: 100 RF: 4 (DME) OneTouch Ultra Blue Test Strip Strip See Rx Instructions .ROUTE .MEDSUPPLY Qty: 100 RF: 4 epinephrine [EpiPen] 0.3 mg/0.3 mL auto-injector 0.3 ml IM ONCE Qty: 1 RF: 0 propranolol [Inderal LA] 80 mg capsule,extended release 24 hr 160 mg PO DAILY Qty: 180 RF: 4 Basaglar KwikPen U-100 Insulin 100 unit/mL (3 mL) insulin pen 65 unit subcut HS Qty: 30 RF: 4 tamsulosin 0.4 mg capsule 0.8 mg PO HS Qty: 180 RF: 3 fluticasone propionate 16 GM spray,suspension 2 spr NS HS RF: 0 Uceris 2 mg/actuation Foam 1 appful RI .Q2D WEEKLY RF: 0 Discharge Instructions Instructions: Shoulder Sprain (ED) Additional Instructions: At this point your shoulder shows no evidence of fracture, however you do likely have notable inflammation and irritation of your shoulder. Please apply the Voltaren gel every 6 hours to help with pain. You can take 500-1000 mg of Tylenol every 6 hours as needed. You can use your sling, but make sure you are moving your shoulder multiple times throughout the day to prevent any frozen shoulder syndrome. Please follow-up closely with your primary care provider for reassessment. Ice it often throughout the day If you notice any worsening of your symptoms, or any new symptoms such as vomiting, diarrhea, fever, chills, shortness of breath, chest pain, numbness, weakness, or fainting , please return immediately to the emergency department for reevaluation. Please follow up with your primary care provider as soon as possible for reassessment and reevaluation. As always, it was a pleasure participating in your medical care today. Referrals: Deacon Watters, CULTURAL HISTORIAN [Primary Care Provider] - Medical Decision Making 71-year-old male with past medical history of COPD, type 2 diabetes mellitus, hypertension, GERD, ulcerative colitis, who presents today for right shoulder pain. About 4 hours ago patient was bringing his legs in from the chicken coop when he slipped on ice and landed on his right shoulder. He had notable pain at that time in the right shoulder but ice to the shoulder in the hopes that this would improve it. He also took Tylenol at that time. Unfortunately pain persisted and worsened with time so he came to the ER for further assessment. He denies hitting his head. He denies any chest pain. He denies any neck or back pain. Pain is located primarily in his right shoulder where he landed. Pain is made worse with movement. Improved with nothing. No other complaint this time. No other modifying factors. He denies any numbness tingling or weakness otherwise. Physical exam demonstrates tenderness over the proximal humerus, the AC joint and the scapular spine. No chest wall tenderness, no tenderness over the midline cervical thoracic or lumbar spine. Suspect injury to the humerus shoulder. We will get x-rays to evaluate for signs of fracture. We will place the patient in a sling. Will give Tylenol, monitor closely and re-assess. 2:33 PM X-ray results have returned, no evidence of fracture per radiology. Patient remains neurovascularly intact. Symptoms are consistent with contusion, and likely bursal inflammation and ligamentous inflammation. Due to pain difficult to tell what focal rotator cuff tendons may have been irritated, but I suspect there is global irritation of the shoulder capsule at this time. Due to the patient's age and risk factors we will give Voltaren gel rather than oral NSAIDs, but we will recommend continued oral Tylenol as needed. We will give a sling, however I made very clear to the patient the importance of regular movement to prevent any frozen shoulder syndrome. Patient has an already scheduled appointment with his primary care provider coming up in 1 week. Discussed red flags for which to return. We will give a small bottle of [place] to go to give as needed. I have extensively reviewed the treatment plan and discharge instructions with the patient. I have addressed all patient concerns at this time. The patient was made aware of what symptoms to monitor for that would warrant a return to the emergency department. Discussed the plan with the patient, they demonstrate verbal understanding and agreement with our assessment and plan at this time. The documentation in this chart was dictated using [email or web address] dictation software. Please excuse any dictation errors. FINDINGS: No evidence of right scapular fracture including no evidence of coracoid process fracture. Glenohumeral joint is not dislocated. It exhibits mild degenerative changes. AC joint appears unremarkable as does the clavicle. No adjacent rib fractures identified. No lung contusion or pneumothorax. FINDINGS: No evidence of fracture or dislocation of the glenohumeral joint. There are mild degenerative changes in the glenohumeral joint. Minimal degenerative changes in the AC joint. Subacromial space is not diminished. Bone density normal. No osseous lesions. No adjacent rib fractures HPI General Date/Time Provider Initiated Documentation: 01/01/22 13:04 . HPI Narrative: 71-year-old male with past medical history of COPD, type 2 diabetes mellitus, hypertension, GERD, ulcerative colitis, who presents today for right shoulder pain. About 4 hours ago patient was bringing his legs in from the chicken coop when he slipped on ice and landed on his right shoulder. He had notable pain at that time in the right shoulder but ice to the shoulder in the hopes that this would improve it. He also took Tylenol at that time. Unfortunately pain persisted and worsened with time so he came to the ER for further assessment. He denies hitting his head. He denies any chest pain. He denies any neck or back pain. Pain is located primarily in his right shoulder where he landed. Pain is made worse with movement. Improved with nothing. No other complaint this time. No other modifying factors. He denies any numbness tingling or weakness otherwise. Related Data Home Medications Medication Instructions Recorded Confirmed Uceris 1 appful RI .Q2D WEEKLY 10/18/18 01/01/22 fluticasone propionate 2 spr NS HS 10/18/18 01/01/22 acetaminophen 325 mg tablet 650 mg PO Q4H PRN tab 03/07/19 01/01/22 sulfasalazine 500 mg tablet 0.5 gm PO DAILY 10/11/19 01/01/22 albuterol sulfate 90 mcg/actuation 2 puff INHALATION Q6H PRN #1 12/07/20 01/01/22 aerosol inhaler inhaler losartan 50 mg tablet 50 mg PO DAILY #90 tab 12/07/20 01/01/22 metformin 1,000 mg tablet 1,000 mg PO DAILY #90 tab-cap 12/07/20 01/01/22 sumatriptan succinate 50 mg tablet 50 mg PO ONCE PRN #7 tab-cap 12/07/20 01/01/22 pen needle, diabetic 31 gauge x #100 ea 01/18/21 01/01/2204/07 blood sugar diagnostic #100 each 03/28/21 01/01/22 epinephrine 0.3 mg/0.3 mL 0.3 ml IM ONCE #1 each 05/01/21 01/01/22 injection, auto-injector propranolol 80 mg capsule,24 160 mg PO DAILY #180 tab 06/10/21 01/01/22 hr,extended release fluticasone propionate 110 1 puff INHALATION BID #12 g 07/08/21 01/01/22 mcg/actuation HFA aerosol inhaler nystatin 100,000 unit/mL oral 500,000 unit BUCCAL QID #480 ml 07/08/21 01/01/22 suspension insulin glargine 100 unit/mL (3 65 unit SUBCUT HS #30 ml 11/04/21 01/01/22 mL) subcutaneous pen folic acid 1 mg tablet 1 mg PO DAILY #90 tab-cap 11/18/21 01/01/22 glipizide 10 mg tablet 10 mg PO DAILY #90 tab-cap 11/18/21 01/01/22 omeprazole 40 mg capsule,delayed 40 mg PO DAILY #90 cap 11/18/21 01/01/22 release fluconazole 100 mg tablet 100 mg PO DAILY #8 tab 11/27/21 01/01/22 tamsulosin 0.4 mg capsule 0.8 mg PO HS #180 cap 12/04/21 01/01/22 Previous Rx's Medication Instructions Recorded albuterol sulfate 90 mcg/actuation 2 puff INHALATION Q6H PRN #1 12/07/20 aerosol inhaler inhaler losartan 50 mg tablet 50 mg PO DAILY #90 tab 12/07/20 metformin 1,000 mg tablet 1,000 mg PO DAILY #90 tab-cap 12/07/20 sumatriptan succinate 50 mg tablet 50 mg PO ONCE PRN #7 tab-cap 12/07/20 pen needle, diabetic 31 gauge x #100 ea 01/18/2104/07 blood sugar diagnostic #100 each 03/28/21 epinephrine 0.3 mg/0.3 mL 0.3 ml IM ONCE #1 each 05/01/21 injection, auto-injector propranolol 80 mg capsule,24 160 mg PO DAILY #180 tab 06/10/21 hr,extended release fluticasone propionate 110 1 puff INHALATION BID #12 g 07/08/21 mcg/actuation HFA aerosol inhaler nystatin 100,000 unit/mL oral 500,000 unit BUCCAL QID #480 ml 07/08/21 suspension insulin glargine 100 unit/mL (3 65 unit SUBCUT HS #30 ml 11/04/21 mL) subcutaneous pen folic acid 1 mg tablet 1 mg PO DAILY #90 tab-cap 11/18/21 glipizide 10 mg tablet 10 mg PO DAILY #90 tab-cap 11/18/21 omeprazole 40 mg capsule,delayed 40 mg PO DAILY #90 cap 11/18/21 release fluconazole 100 mg tablet 100 mg PO DAILY #8 tab 11/27/21 tamsulosin 0.4 mg capsule 0.8 mg PO HS #180 cap 12/04/21 Allergies Allergy/AdvReac Type Severity Reaction Status Date / Time hornet venom Allergy Severe Anaphylaxis Verified 01/01/22 13:09 cephalexin [From Keflex] AdvReac Intermediate headaches Verified 01/01/22 13:09 finasteride [From Proscar] AdvReac Intermediate testicle Verified 01/01/22 13:09 pain Tetracyclines AdvReac Intermediate NAUSEA Verified 01/01/22 13:09 erythromycin base AdvReac Unknown NAUSEA Verified 01/01/22 13:09 General Stated Complaint: Orthopedic CELSO: 4 PFSH All Active Problems (Updated 01/01/22 @ 14:27 by Kenji Thomas DO) Sprain of right shoulder (Acute) Exertional dyspnea (Acute) Acute UTI (urinary tract infection) (Acute) Dysuria (Acute) Hiatal hernia with GERD (Acute) Thrush of mouth and esophagus (Acute) Lumbar back pain with radiculopathy affecting left lower extremity (Acute) Inguinal pain (Acute) Left inguinal pain (Acute) Microscopic hematuria (Acute) BPH loc w urin obs/LUTS (Acute) Pain in left testicle (Acute) Colon polyp (Acute) Diverticulosis of sigmoid colon (Acute) Family history of colon cancer (Acute) History of tobacco use (Acute) Hydrocele (Acute) Prostatitis (Acute) Inguinodynia, left (Acute) Ulcerative colitis (Chronic) mild Right lumbar radiculopathy (Chronic 12/06/15) Hearing loss (Chronic) Gastroesophageal reflux disease (Chronic) Diabetic peripheral neuropathy associated with type 2 diabetes mellitus (Chronic 12/18/17) Diabetes mellitus (Chronic 03/10/13) Asthma (Chronic) Medical History Abnormal colonoscopy 02/22/19 tubular adenoma ascending and transverse colon, sessile serrated adenoma @ 50cm, rectosigmoid colon moderately active chronic colitis/proctitis. mg COPD (chronic obstructive pulmonary disease) DM2 (diabetes mellitus, type 2) Esophagitis Essential hypertension GERD (gastroesophageal reflux disease) Inguinal hernia of left side without obstruction or gangrene Skin cancer, basal cell (10/08/16) Subdural hemorrhage Ulcerative colitis [place] [facility] [place] [facility] [place] History of appendectomy History of esophagogastroduodenoscopy (EGD) (~06/28/21) History of herniorrhaphy (10/19/18) left indirect, dr perez History of open reduction and internal fixation (ORIF) procedure wrist and ankle Family History Mother Leukemia Father Neoplasm Grandfather Neoplasm STOMACH Grandmother Diabetes Colitis Brother Prostate cancer Nephew Prostate cancer Social History Smoking/Tobacco Use Status: Former Tobacco Use Quit Date: 11/23/91 Pack-years: 20 Second Hand Exposure: Yes Smoking risk assessment performed?: Yes Alcohol Intake: former Drug use: Never Substance use type: does not use Caregiver/Support person: No Housing: house Number of Children: 2 Communication Needs: Hard of Hearing Do you need help understanding health information?: Rarely current occupation: Retired Pets and animals: No Sexually active: No Do you think of yourself as: straight/heterosexual Current gender identity: male What is your relationship status?: How often do you talk on the phone with friends or family?: three or more times per week How often do you get together with friends or relatives?: never How often do you attend congregation or confucianism services?: decline to answer Do you belong to any clubs or organized social groups?: no Panel score (0-1 are the most socially isolated patients): 1 What type of physical activity do you participate in: walking Duration: > 90 minutes/day Frequency: daily Special harmeet needs: No Seatbelt use: always Helmet use: Yes Helmet use: always Drive intox or ride w/intox auto parts delivery driver: No Do you feel safe at home: Yes Do you feel safe in your relationship?: Yes Victim of physical abuse: No Victim of emotional abuse: No Victim of sexual abuse: No Would you like helpful sources: No Exam Narrative Exam Narrative: 1.Const: Well-nourished, Well-developed, appearing stated age 2.Eyes: PERRL, no conjunctival injection, and symmetrical lids. 3.ENT: Atraumatic external nose and ears. Moist MM. Neck: Symmetric, trachea midline, No thyromegaly. 4.CVS: +S1/S2, No murmurs or gallops. Peripheral pulses 2+ and equal in all extremities. Brisk capillary refill in all extremities. 5.RESP: Unlabored respiratory effort. Clear to auscultation bilaterally. No wheezes rales or rhonchi 6.GI: Soft, Nontender/Nondistended, No hepatosplenomegaly. No guarding or rebound. 7.MSK: Patient's right shoulder demonstrates tenderness over the proximal humeral head, over the anterior aspect, as well as over the AC joint. Some mild tenderness over the scapular spine as well. Pain with movement for internal and external rotation as well as flexion, extension, and abduction. No tenderness over the mid or distal humerus. No midline cervical thoracic or lumbar spine tenderness. No chest wall tenderness. 8.Skin: Warm, Dry. No rashes or lesions. 9.Neuro: file clerk II-XII grossly intact. Sensation grossly intact, no focal neurologic deficits. 10.Psych: (AAO) x3. Appropriate mood and affect Course Vital Signs Vital signs: Vital Signs Temperature 36.3 C L 01/01/22 13:02 Pulse 74 01/01/22 13:02 Respiratory Rate 16 01/01/22 13:02 Blood Pressure 157/71 H 01/01/22 13:02 Pulse Oximetry 96 01/01/22 13:02 Temperature 36.3 C L 01/01/22 13:02 Pulse 74 01/01/22 13:02 Respiratory Rate 16 01/01/22 13:02 Respiratory Effort 01/01/22 13:02 Blood Pressure 157/71 H 01/01/22 13:02 Blood Pressure Position Sitting 01/01/22 13:02 Pulse Oximetry 96 01/01/22 13:02 Oxygen Delivery Method Room Air 01/01/22 13:02 Oxygen Flow Rate 0 01/01/22 13:02 Pain Level 10 01/01/22 13:02
--- NOTE | 2022-01-01 13:46 | DI.RAD_ITS ---
Exam(s) XR SHOULDER RT COMPLETE 2+V EXAM: XR SHOULDER RT COMPLETE 2+V CLINICAL HISTORY: fall, pain at ac joint, prox hum. and scapula. TECHNIQUE: 2D digital imaging was performed. COMPARISON: No exams were available for comparison FINDINGS: No evidence of fracture or dislocation of the glenohumeral joint. There are mild degenerative change s in the glenohumeral joint. Minimal degenerative changes in the AC joint. Subacromial space is not diminished. Bone density normal. No osseous lesions. No adjacent rib fractures. IMPRESSION: DATA REPOSITORY: RADIATION DOSE DELIVERED:
--- NOTE | 2022-01-01 13:46 | DI.RAD_ITS ---
Exam(s) XR SCAPULA RT EXAM: XR SCAPULA RT CLINICAL HISTORY: fall right shoulder and scapular spine pain. TECHNIQUE: 2D digital imaging was performed. COMPARISON: CR XR SHOULDER RT COMPLETE 2+V from 01/01/2022 FINDINGS: No evidence of right scapular fracture including no evidence of coracoid process fracture. Glenohume ral joint is not dislocated. It exhibits mild degenerative changes. AC joint appears unremarkable a s does the clavicle. No adjacent rib fractures identified. No lung contusion or pneumothorax. IMPRESSION: DATA REPOSITORY: RADIATION DOSE DELIVERED:
[2022-01-01] MEDS: Diclofenac 1% Gel 100 GM TUBE TP (14:34)
[2022-01-01] MEDS: Acetaminophen 500 MG TAB 1000 MG PO (14:34)
== END 2022-01-01 14:44 | disposition home or self-care (01) ==
PROVIDERS: Emergency Provider Student in an Organized Health Care Education/Training Program; PCP Nurse Practitioner Family
DX: S43.491A Other sprain of right shoulder joint, initial encounter (principal); W00.0XXA Fall on same level due to ice and snow, initial encounter; K21.9 Gastro-esophageal reflux disease without esophagitis; K51.90 Ulcerative colitis, unspecified, without complications
CPT/HCPCS: 99284; 73010; 73030; 99283

== ENCOUNTER → 2022-03-04 08:20 | Outpatient (BNVA) | payer MEDICARE, OTHER, SELFPAY | PROVIDERS: PCP Nurse Practitioner Family; Visit Provider Nurse Practitioner Gerontology | DX: N40.1 Benign prostatic hyperplasia with lower urinary tract symptoms (principal); R30.0 Dysuria; R31.0 Gross hematuria; Z80.42 Family history of malignant neoplasm of prostate | CPT/HCPCS: 51798; 81003; 99214 ==

== ENCOUNTER 2022-03-04 10:25 | Outpatient (REF) | payer MEDICARE, OTHER, SELFPAY | END 2022-03-04 10:26 | disposition home or self-care (01) | LOC: NCHCN 10:25 | PROVIDERS: PCP Nurse Practitioner Family; Visit Provider Nurse Practitioner Gerontology | DX: N39.0 Urinary tract infection, site not specified (principal); R39.89 Other symptoms and signs involving the genitourinary system | CPT/HCPCS: 87077; 87086; 87186 ==

== ENCOUNTER 2022-03-06 02:19 | Outpatient (CLI) | payer MEDICARE, OTHER, SELFPAY ==
[2022-03-06 11:53] LABS: Abs Immature Grans 0.02 10^3/uL (0.0-0.06); Absolute Basophil Count 0.03 10^3/uL (0.0-0.2); Absolute Eosinophil Count 0.12 10^3/uL (0.0-0.7); Absolute Lymphocyte Count 1.31 10^3/uL (1.2-3.4); Absolute Monocyte Count 0.43 10^3/uL (0.1-0.8); Absolute Neutrophil Count 4.33 10^3/uL (1.2-6.7); Basophils % 0.5; Eosinophils % 1.9; HCT 35.2 % (40.0-50.0); HGB 11.4 g/dL (13.5-17.5); Immature Grans % 0.3; MCH 32.5 pg (27.0-33.0); MCHC 32.4 % (32.0-36.0); MCV 100.3 fL (80-95); MPV 10.8 fL (8.0-11.0); Monocytes % 6.9; Neutrophils % 69.4; Nucleated RBC 0 %; Platelet Count 195 10^3/uL (130-400); RBC 3.51 10^6/uL (4.36-5.78); RDW 13.2 % (11.8-14.1); RDW-SD 48.2 fL; WBC 6.24 10^3/uL (4.4-10.8)
[2022-03-06 11:55] LABS: ESR 16 mm/hr (0-20)
[2022-03-06 12:58] LABS: C-Reactive Protein 0.25 mg/dL (0.0-0.3)
== END 2022-03-06 02:20 | disposition home or self-care (01) ==
LOC: LBO 02:19
PROVIDERS: PCP Nurse Practitioner Family; Visit Provider Nurse Practitioner Adult Health
DX: K51.811 Other ulcerative colitis with rectal bleeding (principal)
CPT/HCPCS: 36415; 85652; 85025; 86140

== ENCOUNTER 2022-05-20 15:06 | Outpatient (CLI) | payer MEDICARE, OTHER, SELFPAY ==
--- NOTE | 2022-05-20 14:00 | DI.RAD_ITS ---
Exam(s) XR SHOULDER RT COMPLETE 2+V EXAM: XR SHOULDER RT COMPLETE 2+V CLINICAL HISTORY: right shoulder pain. TECHNIQUE: 2D digital imaging was performed of the right shoulder. Two images were obtained. AP an d axillary views were obtained. COMPARISON: CR XR SHOULDER RT COMPLETE 2+V from 01/01/2022 FINDINGS: BONES: No acute fracture is present. No bony destructive lesion is seen. JOINTS: No dislocation present. SOFT TISSUE: Normal. IMPRESSION: Unremarkable radiographs of the right shoulder. DATA REPOSITORY: RADIATION DOSE DELIVERED:
== END 2022-05-20 15:07 | disposition home or self-care (01) ==
LOC: DIORS 15:07
PROVIDERS: PCP Nurse Practitioner Family; Visit Provider Student in an Organized Health Care Education/Training Program
DX: S46.011A Strain of muscle(s) and tendon(s) of the rotator cuff of right shoulder, initial encounter; W00.9XXA Unspecified fall due to ice and snow, initial encounter
CPT/HCPCS: 20610; 99204; 99214; 73030; J1030

== ENCOUNTER → 2022-07-22 12:59 | Outpatient (BNVA) | payer MEDICARE, OTHER, SELFPAY | PROVIDERS: PCP Nurse Practitioner Family; Referring Provider Nurse Practitioner Family; Visit Provider Student in an Organized Health Care Education/Training Program | DX: W19.XXXA Unspecified fall, initial encounter (principal); S46.011A Strain of muscle(s) and tendon(s) of the rotator cuff of right shoulder, initial encounter | CPT/HCPCS: 99214 ==

== ENCOUNTER 2022-07-31 03:17 | Outpatient (CLI) | payer MEDICARE, OTHER, SELFPAY ==
[2022-07-31 12:55] LABS: CREATININE 1.2 mg/dL (0.70-1.30); Estimated GFR 63.46 (mL/min/1.73m2)
== END 2022-07-31 03:18 | disposition home or self-care (01) ==
LOC: LBO 03:17
PROVIDERS: PCP Nurse Practitioner Family; Visit Provider Nurse Practitioner Family
DX: E11.42 Type 2 diabetes mellitus with diabetic polyneuropathy (principal); Z79.4 Long term (current) use of insulin
CPT/HCPCS: 36415; 82565

== ENCOUNTER → 2022-08-13 01:25 | Outpatient (CLI) | payer MEDICARE, OTHER, SELFPAY ==
--- NOTE | 2022-08-13 07:00 | DI.MRI_ITS ---
Exam(s) MR UPPER JOINT RT WO EXAM: MR UPPER JOINT RT WO CLINICAL HISTORY: R SHOULDER PAIN,traumatic tear rt rotator cuff,strain,m25.511,s46.011a TECHNIQUE: Multiplanar multisequence MRI of the shoulder was performed. COMPARISON: CR XR SHOULDER RT COMPLETE 2+V from 05/20/2022 FINDINGS: Quality of images degraded by motion artifact. MARROW:There is no evidence of fracture, Hill-Sachs deformity, nor ominous osseous lesions. ROTATOR CUFF MECHANISM: AC JOINT/ACROMIUM: Moderate degenerative changes the in the AC joint. Undersurface of the acromion i s flat. No undersurface impingement hook evident.. There is no evidence of os acromiale. Supraspinatus: There is a prominent full-thickness tear of the supraspinatus tendon with continuity o f fluid between the glenohumeral joint through this space into the subacromial space. The AP gap dis tance of the tear is 2.5 cm. No prominent muscle atrophy. Infraspinatus: Intact. No evidence of tear nor muscle atrophy. Teres Minor: Intact. No evidence of tear nor muscle atrophy. Subscapularis/anterior cuff: Intact. No abnormal signal at the level of the multipennate insertional fibers. No significant tear nor atrophy. BICEPS TENDON: Not displaced from the intertubercular groove. Some signal abnormality within the int ra-articular aspect but difficult to assess with the amount of motion artifact. The biceps tendon is not appear detached from the anterosuperior labrum. LABRUM: The superior labrum is difficult to assess because of the amount of motion artifact. There i s some tearing of the posterior labrum evident. Some mild increased signal in the anterior labrum. Inferior labrum difficult to assess because of motion artifact. There is no evidence of degenerative paralabral cysts GLENOHUMERAL JOINT: Mild degenerative change, somewhat difficult to assess because of motion artifact . No osteophytes. No degenerative subarticular cysts evident. QUADRILATERAL SPACE: No evidence of mass in the region of the axillary nerve and dorsal circumflex hu meral vessels. Visualized triceps muscle at this level appears unremarkable. IMPRESSION: 1. There is a full-thickness tear of the supraspinatus-rotator cuff tendon as described above. Other muscular components of the rotator cuff mechanism appear intact. 2. Labrum is somewhat difficult to assess because of the amount of motion artifact here. However, th ere does appear to be some tearing of the posterior labrum evident. There is some increased signal within the intra-articular aspect of the biceps tendon but there does not appear to be a full-thickness tear of this structure. 3. No prominent glenohumeral joint effusion. Mild degenerative changes in the glenohumeral and AC be ints. DATA REPOSITORY:
== END ==
PROVIDERS: PCP Nurse Practitioner Family; Visit Provider Student in an Organized Health Care Education/Training Program
DX: S46.011A Strain of muscle(s) and tendon(s) of the rotator cuff of right shoulder, initial encounter; X58.XXXA Exposure to other specified factors, initial encounter
CPT/HCPCS: 73221

== ENCOUNTER → 2022-08-20 13:01 | Outpatient (BNVA) | payer MEDICARE, OTHER, SELFPAY | PROVIDERS: PCP Nurse Practitioner Family; Referring Provider Nurse Practitioner Family; Visit Provider Student in an Organized Health Care Education/Training Program | DX: S46.011A Strain of muscle(s) and tendon(s) of the rotator cuff of right shoulder, initial encounter (principal); X58.XXXA Exposure to other specified factors, initial encounter; M75.21 Bicipital tendinitis, right shoulder; M75.51 Bursitis of right shoulder | CPT/HCPCS: 99214 ==

== ENCOUNTER 2022-09-05 07:42 | Day surgery (SDC) | payer MEDICARE, OTHER, SELFPAY ==
[2022-09-05] VITALS (14 sets, daily range): BP systolic 81–128; BP diastolic 39–77; PULSE 50–66; RESP 15–20; TEMP 36.3–36.7; O2SAT 93–100; BMI 29.8
--- NOTE | 2022-09-05 08:52 | W.ANESPRE ---
General Info Date of Service Date Performed: 09/05/22 Height: 6 ft 4 in Weight: 111.3 kg Body Mass Index (BMI): 29.8 Surgical Procedure: Operation Date: 09/05/22 09:40 Proposed Procedure Side Surgeon p Shoulder Rotator Cuff Arthroscopic w/Extensive Debridement, Biceps Tenodesis, Subacromial Decompression Right Raza Salinas MD Meds Allergies and Home Medications Allergies Allergy/AdvReac Type Severity Reaction Status Date / Time hornet venom Allergy Severe Anaphylaxis Verified 09/05/22 07:52 cephalexin [From Keflex] AdvReac Intermediate headaches Verified 09/05/22 07:52 finasteride [From Proscar] AdvReac Intermediate testicle Verified 09/05/22 07:52 pain Tetracyclines AdvReac Intermediate NAUSEA Verified 09/05/22 07:52 erythromycin base AdvReac Unknown NAUSEA Verified 09/05/22 07:52 Home Medication Medication Instructions Recorded budesonide 2 mg/actuation rectal 1 appful NE .Q2D WEEKLY 10/18/18 foam (Uceris) fluticasone propionate 50 2 spr NS HS 10/18/18 mcg/actuation nasal spray,suspension acetaminophen 325 mg tablet 650 mg PO Q4H PRN 03/07/19 (Tylenol) sulfasalazine 500 mg tablet 0.5 gm PO DAILY 10/11/19 albuterol sulfate 90 mcg/actuation 2 puff inhalation Q6H PRN ##1 12/07/20 aerosol inhaler (ProAir HFA) blood sugar diagnostic (OneTouch #100 ea 03/28/21 Ultra Blue Test Strip) epinephrine 0.3 mg/0.3 mL 0.3 ml IM ONCE #1 ea 05/01/21 injection, auto-injector (EpiPen) folic acid 1 mg tablet 1 mg PO DAILY #90 tab-caps 11/18/21 glipizide 10 mg tablet 10 mg PO DAILY #90 tab-caps 11/18/21 omeprazole 40 mg capsule,delayed 40 mg PO DAILY #90 caps 11/18/21 release tamsulosin 0.4 mg capsule 0.8 mg PO HS #180 caps 12/04/21 sumatriptan succinate 50 mg tablet 50 mg PO ONCE PRN migraine 01/13/22 (Imitrex) headache #7 tab-caps atorvastatin 20 mg tablet 20 mg PO DAILY #90 tabs 02/19/22 empagliflozin 10 mg tablet 10 mg PO DAILY #90 tabs 02/19/22 losartan 100 mg tablet 100 mg PO DAILY #90 tabs 02/24/22 pen needle, diabetic 31 gauge x #100 ea 04/01/2204/07 (Pen Needle) diclofenac sodium 1 % topical gel 2 g topical QID #100 grams 05/16/22 metformin 500 mg tablet 1,000 mg PO DAILY 05/20/22 propranolol 80 mg capsule,24 160 mg PO DAILY #180 tabs 06/18/22 hr,extended release (Inderal LA) insulin glargine 100 unit/mL (3 65 unit subcut HS 09/04/22 mL) subcutaneous pen (Basaglar KwikPen U-100 Insulin) aspirin 81 mg tablet,delayed 81 mg PO DAILY Prevent blood clot 09/05/22 release 3 days #3 tabs naproxen 250 mg tablet 250 - 500 mg PO BID PRN #20 tabs 09/05/22 oxycodone 5 mg tablet 5 - 10 mg PO Q4H PRN moderate to 09/05/22 severe pain #18 tabs Current Visit Medications: Current Medications Generic Name Dose Route Start Last Admin Trade Name Freq PRN Reason Stop Dose Admin Ringer's Solution 1,000 mls @ 30 mls/hr 09/05/22 06:00 IV 09/05/22 16:00 INFUSION [facility] Cefazolin Sodium 3,000 mg/ 100 mls @ 200 mls/hr 09/05/22 06:00 Sodium Chloride IVPB 09/05/22 16:00 PREOP [facility] IV Miscellaneous Supplies 1 each 09/05/22 06:00 Iv Access IV 09/05/22 23:59 DIRECTED JANY Oxycodone HCl 0 mg 09/05/22 07:14 Oxycodone 5 Mg Tab PO Q3H PRN PRN Pain Sodium Chloride 0 ml 09/05/22 06:00 Normal Saline Flush 10 Ml Syr IV 09/05/22 23:59 PRN PRN Sodium Chloride 0 ml 09/05/22 06:00 Normal Saline 10 Ml Vial IJ 09/05/22 23:59 DIRECTED PRN Sterile Water 0 ml 09/05/22 06:00 Water,Injection,Sterile 10 Ml Vial IJ 09/05/22 23:59 DIRECTED PRN PFSH Active Problems Active Problems: Problem Status Onset Code Asthma J45.909 Diabetes mellitus 03/10/13 E11.9 Diabetic peripheral neuropathy associated with type 2 diabetes mellitus 12/18/17 E11.42 Gastroesophageal reflux disease K21.9 Hearing loss H91.90 Right lumbar radiculopathy 12/06/15 M54.16 Ulcerative colitis K51.90 Inguinodynia, left R10.32 Prostatitis N41.9 Hydrocele N43.3 History of tobacco use Z87.891 Family history of colon cancer Z80.0 Diverticulosis of sigmoid colon K57.30 Colon polyp K63.5 Pain in left testicle N50.812 BPH loc w urin obs/LUTS N40.1 Microscopic hematuria R31.29 Left inguinal pain R10.32 Lumbar back pain with radiculopathy affecting left lower extremity M54.16 Hiatal hernia with GERD K21.9, K44.9 Dysuria R30.0 Exertional dyspnea R06.00 Hyperlipidemia E78.5 Right shoulder pain M25.511 Traumatic tear of right rotator cuff 01/01/22 S46.011A Skin lesion L98.9 Bursitis of right shoulder M75.51 Tendonitis of long head of biceps brachii of right shoulder M75.21 Medical History Medical History Abnormal colonoscopy 02/22/19 tubular adenoma ascending and transverse colon, sessile serrated adenoma @ 50cm, rectosigmoid colon moderately active chronic colitis/proctitis. mg COPD (chronic obstructive pulmonary disease) DM2 (diabetes mellitus, type 2) Esophagitis Essential hypertension GERD (gastroesophageal reflux disease) Glaucoma surgery fixed Inguinal hernia of left side without obstruction or gangrene Skin cancer removal x2 weeks ago Skin cancer, basal cell (10/08/16) Subdural hemorrhage Age 17, and a tree fell and hit him age 47 Ulcerative colitis Surgical History Surgical History [place]olecystectomy [place] [facility] [place] [facility] [place] of [place]ectomy History of esophagogastroduodenoscopy (EGD) (~06/28/21) History of herniorrhaphy (10/19/18) left indirect, dr perez History of open reduction and internal fixation (ORIF) procedure wrist and ankle Tobacco Smoking/Tobacco Use Status: Former Tobacco Use Second hand exposure: Yes Alcohol Alcohol Intake: former Substance Use Substance use: Never Substance use type: does not use Vital Signs and Lab Results Vital Signs Most Recent Vital Signs in EMR: Most Recent Vital Signs Temp Pulse Resp BP Pulse Ox 36.5 C 64 20 117/69 96 09/05/22 08:03 09/05/22 08:03 09/05/22 08:03 09/05/22 08:03 09/05/22 08:03 Point of Care Results Point of Care Results: Finger Stick Blood Glucose 151 09/05/22 08:49 Lab Results Blood Type / Crossmatch: No Data to Display Complete Blood Count: No Data to Display Complete Metabolic Panel: No Data to Display Liver Function Panel: No Data to Display Coagulation Panel: No Data to Display Cardiac Panel: No Data to Display Arterial Blood Gas: No Data to Display Venous Blood Gas: No Data to Display Pancreas Panel: No Data to Display Thyroid Panel: No Data to Display Infectious Disease: No Data to Display Blood Cultures: No Data to Display Toxicology Panel: No Data to Display Anesthesia Assessment and Plan Anesthesia History Personal History: No History of Anesthesia Complications Family History: No Family History of Anesthesia Complications Exercise Tolerance Exercise Tolerance: Metabolic Equivalents<4 Pertinent Negatives Pertinent Negatives: No Major Cardiovascular Symptoms or Complaints and Other (ALLAN normal for patient. ) Cardiac & Pulmonary Exam Cardiac Exam: Normal S1/S2 Heart Sounds Pulmonary Exam: Clear Bilateral Breath Sounds Implantable Cardiac Device Does patient have a Pacemaker or an ICD?: No Airway Exam Known Difficult Airway: No Mallampati Class: 1 Mouth Opening: Normal (> 3cm) Thyromental Distance: Greater than 3 cm Neck Range of Motion: Full ROM Neck Circumference: Normal Teeth Condition: Edentulous ASA Classification ASA Score: ASA 3 Emergency Case?: No NPO Status NPO Status: NPO Clears >2 hours, Solids >8 hours Anesthesia Plan Resuscitation Status: Full Code Anesthesia Technique: General Anesthesia Airway Planned: Endotracheal Tube Monitors Used: Standard Monitors
[2022-09-05] MEDS: Lactated Ringers 1,000 ML 30 ML IV (08:53)
--- NOTE | 2022-09-05 09:55 | NUR.NOTE ---
During admission assessment, patient states he had high blood pressure but recently it is low and he didn't know why. States this happened a couple of weeks ago. VS stable. No edema noted. LS clear except for transient expiratory wheezing. Persistant shortness of breath noted with worsening on exertion. Daughter present and states that is his baseline. Anesthesia made aware at bedside with patient and family to clarify.Nursing Note:
[2022-09-05] MEDS: ceFAZolin 3,000 MG in Normal Saline 100 ML 200 MG IVPB (10:18)
[2022-09-05] MEDS: EPINEPHrine 30 MG/30 ML VIAL (10:59)
--- NOTE | 2022-09-05 11:14 | W.ANESNERVE ---
Nerve Block Single Injection Procedure Date and Time Date Performed: 09/05/22 Procedure Start: 09:40 Location Where Procedure Performed Procedure Location: Day Surgery Unit Reason Performed: Postoperative Analgesia Requesting Provider: Raza Salinas Timeout Performed Timeout Performed: Yes Monitoring Used ECG, Blood Pressure and SpO2 Sterility Sterility: Hand Hygiene, Surgical Cap, Surgical Mask, Sterile Gloves, Sterile Drape/Sheet and Chlorhexidine Sedation Given During Procedure Sedation Given (Indicate Dose Given): Versed IV Dose:: 2 mg Patient Mental Status Patient Mental Status: Sedate with meaningful communication Nerve Block 1st Nerve Block: Laterality: Right Block Type: Interscalene Needle / Catheter Used: 100mm SonoPlex II Local Anesthetic Bolus (Indicate Dose Given): Lidocaine used for local infiltration of skin, Injected in 3-5ml increments after negative blood aspiration and Bupivacaine 0.5% Dose:: 15 ml Additives (Indicate Dose Given): Precedex Dose:: 80 mcg Ultrasound: Sterile probe cover and gel used Ultrasound Image Saved?: Yes Nerve Stimulator: Not Used Paresthesia: None Procedure Tolerated: No Complications and Patient tolerated well Procedure Outcome: Successful Performed By: Roselia Orozco Supervised By: Caron Nath
--- NOTE | 2022-09-05 12:27 | W.PM.DSUDISC ---
Discharge Plan Disposition Patient Disposition: HOME Condition: Stable Discharge Details Reason For Visit: Right shoulder surgery Attending Provider: Raza Salinas Primary Care Provider: Deacon Watters Home Meds and New Rx's Prescriptions: New naproxen 250 mg tablet 250 - 500 mg PO BID PRNQty: 20 0RF Rx Instructions: take with a meal oxycodone 5 mg tablet 5 - 10 mg PO Q4H MDD 30 mg PRN (Reason: moderate to severe pain) Qty: 18 0RF aspirin 81 mg tablet,delayed release (DR/EC) 81 mg PO DAILY 3 Days Qty: 3 0RF Continued glipizide 10 mg tablet 10 mg PO DAILY Qty: 90 4RF folic acid 1 mg tablet 1 mg PO DAILY Qty: 90 4RF omeprazole 40 mg capsule,delayed release(DR/EC) 40 mg PO DAILY Qty: 90 3RF acetaminophen [Tylenol] 325 mg tablet 650 mg PO Q4H PRN sulfasalazine 500 mg tablet 0.5 gm PO DAILY atorvastatin 20 mg tablet 20 mg PO DAILY Qty: 90 3RF empagliflozin 10 mg tablet 10 mg PO DAILY Qty: 90 3RF metformin 500 mg tablet 1,000 mg PO DAILY albuterol sulfate [ProAir HFA] 90 mcg/actuation HFA aerosol inhaler 2 puff Inhalation Q6H PRN Qty: 1 4RF (DME) OneTouch Ultra Blue Test Strip Strip See Rx Instructions .ROUTE .MEDSUPPLY Qty: 100 4RF Rx Instructions: One Daily epinephrine [EpiPen] 0.3 mg/0.3 mL auto-injector 0.3 ml IM ONCE Qty: 1 0RF Rx Instructions: SEVERE ALLERGIC REACTION TO INSECT STING tamsulosin 0.4 mg capsule 0.8 mg PO HS Qty: 180 3RF Rx Instructions: Take 2 caps daily sumatriptan succinate [Imitrex] 50 mg tablet 50 mg PO ONCE PRN (Reason: migraine headache) Qty: 7 5RF losartan 100 mg tablet 100 mg PO DAILY Qty: 90 3RF (DME) pen needle, diabetic [Pen Needle] 31 gauge x 5/16 needle 1 ea Miscellaneous DAILY Qty: 100 4RF Rx Instructions: BD ultrafine diclofenac sodium 1 % gel 2 g topical QID Qty: 100 0RF Rx Instructions: apply to single elbow, wrist or hand; for hand includes palm/fingers/back of hand propranolol [Inderal LA] 80 mg capsule,extended release 24 hr 160 mg PO DAILY Qty: 180 3RF Rx Instructions: FOR MIGRAINE PROPHYLAXIS fluticasone propionate 16 GM spray,suspension 2 spr NS HS Uceris 2 mg/actuation Foam 1 appful [place] .Q2D WEEKLY insulin glargine [Basaglar KwikPen U-100 Insulin] 100 unit/mL (3 mL) insulin pen 65 unit subcut HS Discharge Instructions Additional Instructions: Surgery: Right shoulder arthroscopy with rotator cuff repair (supraspinatus), biceps tenodesis, extensive debridement, and subacromial decompression. Activity: For 6 weeks, you should keep your arm at your side in a neutral position at all times except for physical therapy. Do not try to lift or raise your arm using your own muscles. You should use the sling whenever you are out of the house. You may have to adjust the abduction pillow or remove it for comfort. At home it is best to remove the sling and rest the arm on a pillow at your side or support the operative side with your other hand. You may allow the arm to dangle at your side. A physical therapy prescription will be sent electronically to begin in about 3 weeks. Prescriptions: Aspirin 81 mg take 1 daily to prevent a blood clot for 3 days Naproxen 250 mg take 1-2 every 12 hours with a meal as needed for moderate pain Oxycodone 5 mg take 1-2 every 4-6 hours as needed for severe pain You may use [id number] Tylenol (acetaminophen) as needed for mild pain. These pain medications may be taken all at once or in different combinations as needed. Also, recommend Colace (docusate) as a stool softener as surgery and pain medicine cause constipation. You may try [id number] diphenhydramine (Benadryl) 25-50 mg nightly as a sleep aid Dressings: Remove shoulder bandage after 3 days. Leave the sticky Steri-Strips in place until they fall off or remove them after you shower. Cover the incisions with Band-Aids or leave them open to air. You may shower after 5 days. Follow-up: 10-[address] Salinas You may take off the leg compression stockings this evening at home. You may also leave them on a few days longer if you have a history of leg swelling or edema. Let us know right away if you develop any redness, drainage, fevers, chest pain, or trouble breathing. Do not drink alcohol or drive for at least 24 hours after anesthesia. Please call the office during business hours with any questions or concerns. Discharge Orders Discharge Orders: Discharge Order (Routine); Ordered 09/05/22 Ordered By: Raza Salinas DS: Diagnosis Discharge Diagnosis (1) Traumatic tear of right rotator cuff: Status: Acute
--- NOTE | 2022-09-05 12:37 | W.PM.OP ---
Operative Note Operative Note DATE OF PROCEDURE: 09/05/22 PRE-OP DIAGNOSIS: Right: 1. Rotator cuff tear 2. LHB tendinopathy 3. Bursitis POST-OP DIAGNOSIS: same PROCEDURE: Right: 1. Rotator cuff repair, CPT# 83962. This involved repair of the supraspinatus using anchor and sutures to reattach the rotator cuff back to the footprint of the greater tuberosity. 2. Arthroscopic biceps tenodesis, CPT# 76807. This involved arthroscopically suturing and reattaching the long head of the biceps tendon to the proximal humerus at the superior margin of the bicipital groove with a screw at the correct tension. 3. Extensive debridement, CPT# 66601. This involved using arthroscopic hand instruments, power instruments, and radiofrequency instruments to release the long head of the biceps tendon and debride areas of partial subscapularis rotator cuff tearing labral tearing, synovitis, and chondromalacia about the greater tuberosity working within the glenohumeral joint anteriorly, superiorly and posteriorly. 4. Subacromial decompression, CPT# 14080. This involved using arthroscopic power instruments and a radiofrequency wand to complete a bursectomy. The hotel assistant manager was medically required in order to help assist in techniques above, which require positioning the arm, holding the arthroscope, and manipulating multiple instruments and sutures at the same time. This cannot be done without the help of an experienced hotel assistant manager. SURGEON: Raza Salinas CUPOLA TAPPER: Dariel Montelongo ANESTHESIA TYPE: General LMA/ETT and Primary Nerve Block Refer to Anesthesia Record ESTIMATED BLOOD LOSS: 10 PATHOLOGY: none sent COMPLICATIONS: None Patient was transported to: PACU Patient's condition: stable Implants: Arthrex: 5.5mm SwiveLocks x 1 Indications: The patient was diagnosed with the above conditions and appropriately indicated for surgical intervention. Please see complete medical record for details. Findings: Exam under anesthesia: Good range of motion, no instability Glenohumeral joint: Moderate joint space narrowing and chondromalacia. Upper margin degenerative partial subscapularis tear. Significant anterior superior and posterior labral degenerative type tearing fraying. Long head biceps partial tearing with degenerative SLAP tear biceps anchor. Full-thickness retracted supraspinatus rotator cuff tear. Partial articular infraspinatus tearing. Subacromial space: Mild to moderate bursitis. Significant medial trans-? tenderness supraspinatus retracted rotator cuff tear. Largely intact infraspinatus wrapping around greater tuberosity footprint. Procedure Description: In the operating room, general anesthesia was induced. Bilateral shoulders were examined. The patient was positioned in the beachchair position. All bony prominences were well-padded. Preoperative antibiotics were administered. The shoulder was prepped and draped in the usual sterile fashion. The correct patient, procedure, and side of the procedure were all verified prior to incision. Starting through the posterior portal a standard complete diagnostic arthroscopy was performed of the glenohumeral joint including inspection of the long head of the biceps, anterior and superior labrum, subscapularis tendon, supraspinatus and infraspinatus tendons, and axillary recess. The glenoid and humeral head cartilage as well as the posterior labrum were inspected from an anterior viewing portal. Significant findings and interventions noted above. The partial subscapularis rotator cuff tear was debrided and did not require repair. The [facility] L was released to preserve external rotation. An all-arthroscopic suprapectoral biceps tenodesis was performed through an anterior portal using a Loop N Tack method with a SutureTape FiberLink cinched around and through the tendon. The biceps was tenotomized from the labrum and retracted down the arm with direct biceps pressure for later repair with the rotator cuff. Starting through the posterior portal, the arthroscope was directed into the subacromial space. A lateral 50 yard line lateral portal was created. A combination of power instruments and a radiofrequency ablator were used to debride bursitis anteriorly, posteriorly, and laterally. The coracoacromial ligament was preserved. No bony acromioplasty was done due to advanced age and acromiohumeral narrowing. The bursectomy was completed viewing laterally and working from posteriorly and the rotator cuff was thoroughly inspected with findings noted above. The large retracted supraspinatus tear was unfortunately medial?transtendinous. The remnant supraspinatus was debrided off the greater tuberosity and the medial footprint debrided to optimize bone tendon healing. The intact infraspinatus was left wrapping around posteriorly. The supraspinatus remnant was debrided anteriorly to the bicipital groove adjacent to the biceps tendon. Arm position was optimized. Supraspinatus tissue excursion was poor and immobilization and releasing done with ability to reach only the medial footprint without undue tension, not unexpected given the medial nature of the tear. The self retrieving suture passer was used to place a large wide FiberTape inverted horizontal mattress repair stitch in the supraspinatus followed by a ripstop suture tape FiberLink in cinch mode. The sutures were used to confirm acceptable single medial row reduction for repair. These repair sutures were combined with the biceps tenodesis repair suture. The undersized punch was used given the advanced age and soft bone to localize placement of an oversized suture anchor. All repair sutures were loaded on a 5.5 mm SwiveLock anchor, which was successfully deployed with good fixation strength. Care was taken to ensure appropriate tension on the supraspinatus with tissue apposition to bone, but no undue pressure. The biceps tendon was tensioned to lay at the superior aspect of the groove adjacent to the anterior aspect of the repair. A FiberWire was removed from the suture anchor. The remaining FiberWire stitch was passed using a self retrieving suture passer at the posterior junction of the supra his tear near the intact infraspinatus and additionally secured with an [facility] arthroscopic knot completing repair. The arm was taken through range of motion and the repair was stable. The shoulder was drained of arthroscopic fluid. All portal sites were copiously irrigated. These incisions were closed using 3-0 Monocryl in a buried fashion and then covered with Mastisol, Steri-Strips, Xeroform, dry gauze, and ABDs. The dressings were covered and secured with Medipore tape. The operative extremity was placed into a sling for immobilization. The patient awoke from anesthesia without complication and was transferred to the recovery room in a stable condition.
[2022-09-05] MEDS: fentaNYL 100 MCG/2 ML VIAL IVP (13:02)
--- NOTE | 2022-09-05 13:36 | W.ANESPOSTOP ---
Postoperative Evaluation Date, Time and Location Date Performed: 09/05/22 Time Performed: 13:36 Patient Location: Day Surgery Unit Vital Signs Most Recent Imported Vital Signs: Most Recent Vital Signs Temp Pulse Resp BP Pulse Ox 36.4 C L 57 L 15 107/52 L 93 09/05/22 12:40 09/05/22 13:10 09/05/22 13:10 09/05/22 13:10 09/05/22 13:10 Pain Score Most Recent Pain Score: Most Recent Pain Score Pain Level 8 09/05/22 13:10 Assessment Mental Status: Awake (Alert & Oriented to Patient Baseline) Airway and Respiratory Function: Patent airway with normal (patient baseline) respiratory exam Cardiovascular Function: Hemodynamically Stable Hydration Status: Adequately Hydrated Nausea & Vomiting: No Nausea or Vomiting Pain: Pain is tolerable per patient (Pain 2/10) Peripheral Nerve Block: Regional nerve block not resolved at time of post operative discharge
== END 2022-09-05 14:42 | disposition home or self-care (01) ==
PROVIDERS: PCP Nurse Practitioner Family; Visit Provider Student in an Organized Health Care Education/Training Program
PROC: (CPT 29827; principal; 2022-09-05 09:30)
DX: M75.111 Incomplete rotator cuff tear or rupture of right shoulder, not specified as traumatic (principal); M75.51 Bursitis of right shoulder; M75.21 Bicipital tendinitis, right shoulder; M94.211 Chondromalacia, right shoulder; E11.42 Type 2 diabetes mellitus with diabetic polyneuropathy; I10 Essential (primary) hypertension
CPT/HCPCS: 29827; 29826; 29828; 29823; 76942; J0690; J1100; J1885; J2250; J2370; J2405; J2704; J3010

== ENCOUNTER → 2022-09-15 10:13 | Outpatient (BNVA) | payer MEDICARE, OTHER, SELFPAY | PROVIDERS: PCP Nurse Practitioner Family; Referring Provider Nurse Practitioner Family; Visit Provider Nurse Practitioner Gerontology | DX: Z87.440 Personal history of urinary (tract) infections (principal); N40.1 Benign prostatic hyperplasia with lower urinary tract symptoms; R31.0 Gross hematuria; Z80.42 Family history of malignant neoplasm of prostate | CPT/HCPCS: 51798; 81003; 99214 ==

== ENCOUNTER 2022-09-15 21:08 | Outpatient (REF) | payer MEDICARE, OTHER, SELFPAY | END 2022-09-15 21:09 | disposition home or self-care (01) | LOC: LBN 21:08 | PROVIDERS: PCP Nurse Practitioner Family; Visit Provider Nurse Practitioner Gerontology | DX: N39.0 Urinary tract infection, site not specified (principal) | CPT/HCPCS: 87077; 87086; 87186 ==

== ENCOUNTER → 2022-09-17 12:56 | Outpatient (BNVA) | payer MEDICARE, OTHER, SELFPAY | PROVIDERS: PCP Nurse Practitioner Family; Referring Provider Nurse Practitioner Family; Visit Provider Student in an Organized Health Care Education/Training Program | DX: S46.011D Strain of muscle(s) and tendon(s) of the rotator cuff of right shoulder, subsequent encounter (principal); X58.XXXD Exposure to other specified factors, subsequent encounter; M75.51 Bursitis of right shoulder; M75.21 Bicipital tendinitis, right shoulder; Z98.890 Other specified postprocedural states ==

== ENCOUNTER → 2022-10-29 12:51 | Outpatient (BNVA) | payer MEDICARE, OTHER, SELFPAY | PROVIDERS: PCP Nurse Practitioner Family; Referring Provider Nurse Practitioner Family; Visit Provider Student in an Organized Health Care Education/Training Program | DX: Z47.89 Encounter for other orthopedic aftercare (principal); M75.21 Bicipital tendinitis, right shoulder; Z98.890 Other specified postprocedural states ==

== ENCOUNTER 2022-11-06 13:31 | Outpatient (CLI) | payer MEDICARE, OTHER, SELFPAY ==
[2022-11-06 11:09] LABS: Abs Immature Grans 0.02 10^3/uL (0.0-0.06); Absolute Basophil Count 0.04 10^3/uL (0.0-0.2); Absolute Eosinophil Count 0.16 10^3/uL (0.0-0.7); Absolute Lymphocyte Count 1.02 10^3/uL (1.2-3.4); Absolute Monocyte Count 0.51 10^3/uL (0.1-0.8); Absolute Neutrophil Count 3.67 10^3/uL (1.2-6.7); Basophils % 0.7; ESR 15 mm/hr (0-20); HCT 38.3 % (40.0-50.0); HGB 12.7 g/dL (13.5-17.5); Immature Grans % 0.4; Lymphocytes % 18.8; MCH 33.4 pg (27.0-33.0); MCHC 33.2 % (32.0-36.0); MCV 101 fL (80-95); MPV 11.1 fL (8.0-11.0); Monocytes % 9.4; Neutrophils % 67.7; Platelet Count 178 10^3/uL (130-400); RDW 12.7 % (11.8-14.1); RDW-SD 46.8 fL; WBC 5.42 10^3/uL (4.4-10.8)
[2022-11-06 11:31] LABS: ALT 19 U/L (16-63); AST 13 U/L (15-37); Alkaline Phosphatase 74 U/L (46-116); Anion Gap 7.3 mmol/L (3-11); BUN 22 mg/dL (7-18); Bilirubin, Total 0.5 mg/dL (0.2-1.0); C-Reactive Protein 0.29 mg/dL (0.0-0.3); CO2 27.7 mmol/L (21.0-32.0); CREATININE 1.3 mg/dL (0.70-1.30); Calcium 9.3 mg/dL (8.5-10.1); Chloride 105 mmol/L (98-107); Estimated GFR 57.65 (mL/min/1.73m2); Glucose 156 mg/dL (74-106); Potassium 3.8 mmol/L (3.5-5.1); Sodium 140 mmol/L (136-145); Total Protein 8.3 g/dL (6.4-8.2)
== END 2022-11-06 13:32 | disposition home or self-care (01) ==
LOC: LBO 13:32
PROVIDERS: PCP Nurse Practitioner Family; Visit Provider Nurse Practitioner Adult Health
DX: K51.811 Other ulcerative colitis with rectal bleeding (principal); K51.50 Left sided colitis without complications
CPT/HCPCS: 36415; 80053; 85652; 85025; 86140

== ENCOUNTER 2022-11-09 08:23 | Outpatient (REF) | payer MEDICARE, OTHER, SELFPAY ==
[2022-11-11 00:19] LABS: Campylobacter PCR Negative (Negative); Salmonella PCR Negative (Negative); Shiga Toxin PCR Negative (Negative); Shigella/Enteroinvasive Ecoli Negative (Negative)
[2022-11-12 16:30] LABS: Calprotectin 91.8 mcg/g
== END 2022-11-09 08:24 | disposition home or self-care (01) ==
LOC: LBN 08:23
PROVIDERS: PCP Nurse Practitioner Family; Visit Provider Nurse Practitioner Adult Health
DX: R19.7 Diarrhea, unspecified (principal); K51.50 Left sided colitis without complications; K51.811 Other ulcerative colitis with rectal bleeding
CPT/HCPCS: 87493; 87505; 83993

== ENCOUNTER → 2022-12-31 13:04 | Outpatient (BNVA) | payer MEDICARE, OTHER, SELFPAY | PROVIDERS: PCP Nurse Practitioner Family; Referring Provider Nurse Practitioner Family; Visit Provider Student in an Organized Health Care Education/Training Program | DX: S46.011D Strain of muscle(s) and tendon(s) of the rotator cuff of right shoulder, subsequent encounter (principal); X58.XXXD Exposure to other specified factors, subsequent encounter; Z98.890 Other specified postprocedural states | CPT/HCPCS: 99213 ==

== ENCOUNTER 2023-02-15 12:04 | Emergency (ER) | payer MEDICARE, SELFPAY ==
[2023-02-15 12:09] VITALS: PULSE 79; RESP 18; TEMP 36.5; O2SAT 97
--- NOTE | 2023-02-15 12:19 | W.ED.GENAD ---
Discharge Plan Disposition Patient Disposition: Home Condition: Improving Discharge Details Clinical Impression: Laceration of right wrist Primary Care Provider: Deacon Watters ED Provider: Jared Justin Home Meds and New Rx's Prescriptions: Continued naproxen 250 mg tablet 250 - 500 mg PO BID PRN (Reason: pain and inflammation) Qty: 30 0RF Rx Instructions: take with a meal acetaminophen [Tylenol] 325 mg tablet 650 mg PO Q4H PRN sulfasalazine 500 mg tablet 0.5 gm PO DAILY empagliflozin 10 mg tablet 10 mg PO DAILY Qty: 90 3RF metformin 500 mg tablet 1,000 mg PO DAILY albuterol sulfate [ProAir HFA] 90 mcg/actuation HFA aerosol inhaler 2 puff Inhalation Q6H PRN Qty: 1 4RF (DME) OneTouch Ultra Blue Test Strip Strip See Rx Instructions .ROUTE .MEDSUPPLY Qty: 100 4RF Rx Instructions: One Daily epinephrine [EpiPen] 0.3 mg/0.3 mL auto-injector 0.3 ml IM ONCE Qty: 1 0RF Rx Instructions: SEVERE ALLERGIC REACTION TO INSECT STING sumatriptan succinate [Imitrex] 50 mg tablet 50 mg PO ONCE PRN (Reason: migraine headache) Qty: 7 5RF (DME) pen needle, diabetic [Pen Needle] 31 gauge x 5/16 needle 1 ea Miscellaneous DAILY Qty: 100 4RF Rx Instructions: BD ultrafine diclofenac sodium 1 % gel 2 g topical QID Qty: 100 0RF Rx Instructions: apply to single elbow, wrist or hand; for hand includes palm/fingers/back of hand propranolol [Inderal LA] 80 mg capsule,extended release 24 hr 160 mg PO DAILY Qty: 180 3RF Rx Instructions: FOR MIGRAINE PROPHYLAXIS ciprofloxacin HCl 500 mg tablet 500 mg PO BID Qty: 14 0RF omeprazole 40 mg capsule,delayed release(DR/EC) 40 mg PO DAILY Qty: 90 3RF folic acid 1 mg tablet 1 mg PO DAILY Qty: 90 4RF glipizide 10 mg tablet 10 mg PO DAILY Qty: 90 4RF tamsulosin 0.4 mg capsule 0.8 mg PO HS Qty: 180 3RF Rx Instructions: Take 2 caps daily losartan 100 mg tablet 100 mg PO DAILY Qty: 90 3RF fluticasone propionate 16 GM spray,suspension 2 spr NS HS Uceris 2 mg/actuation Foam 1 appful [place] .Q2D WEEKLY insulin glargine [Basaglar KwikPen U-100 Insulin] 100 unit/mL (3 mL) insulin pen 65 unit subcut HS Discharge Instructions Instructions: Laceration (ED) Additional Instructions: Return for removal of sutures in 7 days. May gently wash with soap and water, pat dry and change dressing daily. Return for any acute concern. Medical Decision Making 72-year-old male who lacerated his right wrist while carrying a ceramic toilet. No other injury. His tetanus is up-to-date. There is no motor or sensory dysfunction. The wound was anesthetized, liberally irrigated in a bloodless field without evidence of foreign body, and repaired with 4 interrupted nylon sutures. Patient instructed as to home care and will return for suture removal HPI General Mode of arrival: ambulatory. Date/Time Provider Initiated Documentation: 02/15/23 12:10. Limitations to Documentation: no limitations. Information obtained by: patient. History of Present Illness 72 year old M presents to the emergency department with the chief complaint of Right wrist laceration, tetanus up-to-date, described as mild, Quality is described as dull, and is localized to the right and upper extremity. Patient reports no radiation. Patient started experiencing this minute(s) and it has been constant. No relieving factors improve symptom(s), No exacerbating factors reported . Patient did receive the following treatments prior to arrival, other (Dressing placed) Related Data Home Medications Medication Instructions Recorded Confirmed budesonide 2 mg/actuation rectal 1 appful [place] .Q2D WEEKLY 10/18/18 12/31/22 foam (Uceris) fluticasone propionate 50 2 spr NS HS 10/18/18 12/31/22 mcg/actuation nasal spray,suspension acetaminophen 325 mg tablet 650 mg PO Q4H PRN 03/07/19 12/31/22 (Tylenol) sulfasalazine 500 mg tablet 0.5 gm PO DAILY 10/11/19 12/31/22 albuterol sulfate 90 mcg/actuation 2 puff inhalation Q6H PRN ##1 12/07/20 12/31/22 aerosol inhaler (ProAir HFA) blood sugar diagnostic (OneTouch #100 ea 03/28/21 12/31/22 Ultra Blue Test Strip) epinephrine 0.3 mg/0.3 mL 0.3 ml IM ONCE #1 ea 05/01/21 12/31/22 injection, auto-injector (EpiPen) sumatriptan succinate 50 mg tablet 50 mg PO ONCE PRN migraine 01/13/22 12/31/22 (Imitrex) headache #7 tab-caps empagliflozin 10 mg tablet 10 mg PO DAILY #90 tabs 02/19/22 12/31/22 pen needle, diabetic 31 gauge x #100 ea 04/01/22 12/31/22 5/16 (Pen Needle) diclofenac sodium 1 % topical gel 2 g topical QID #100 grams 05/16/22 12/31/22 metformin 500 mg tablet 1,000 mg PO DAILY 05/20/22 12/31/22 propranolol 80 mg capsule,24 160 mg PO DAILY #180 tabs 06/18/22 12/31/22 hr,extended release (Inderal LA) insulin glargine 100 unit/mL (3 65 unit subcut HS 09/04/22 12/31/22 mL) subcutaneous pen (Paco Flynn U-100 Insulin) naproxen 250 mg tablet 250 - 500 mg PO BID PRN pain and 09/17/22 12/31/22 inflammation #30 tabs ciprofloxacin HCl 500 mg tablet 500 mg PO BID #14 tabs 09/18/22 12/31/22 folic acid 1 mg tablet 1 mg PO DAILY #90 tab-caps 11/28/22 12/31/22 glipizide 10 mg tablet 10 mg PO DAILY #90 tab-caps 11/28/22 12/31/22 omeprazole 40 mg capsule,delayed 40 mg PO DAILY #90 caps 11/28/22 12/31/22 release tamsulosin 0.4 mg capsule 0.8 mg PO HS #180 caps 12/01/22 12/31/22 losartan 100 mg tablet 100 mg PO DAILY #90 tabs 12/29/22 12/31/22 Previous Rx's Medication Instructions Recorded albuterol sulfate 90 mcg/actuation 2 puff inhalation Q6H PRN ##1 12/07/20 aerosol inhaler (ProAir HFA) blood sugar diagnostic (OneTouch #100 ea 03/28/21 Ultra Blue Test Strip) epinephrine 0.3 mg/0.3 mL 0.3 ml IM ONCE #1 ea 05/01/21 injection, auto-injector (EpiPen) sumatriptan succinate 50 mg tablet 50 mg PO ONCE PRN migraine 01/13/22 (Imitrex) headache #7 tab-caps empagliflozin 10 mg tablet 10 mg PO DAILY #90 tabs 02/19/22 pen needle, diabetic 31 gauge x #100 ea 04/01/22 5/16 (Pen Needle) diclofenac sodium 1 % topical gel 2 g topical QID #100 grams 05/16/22 propranolol 80 mg capsule,24 160 mg PO DAILY #180 tabs 06/18/22 hr,extended release (Inderal LA) naproxen 250 mg tablet 250 - 500 mg PO BID PRN pain and 09/17/22 inflammation #30 tabs ciprofloxacin HCl 500 mg tablet 500 mg PO BID #14 tabs 09/18/22 folic acid 1 mg tablet 1 mg PO DAILY #90 tab-caps 11/28/22 glipizide 10 mg tablet 10 mg PO DAILY #90 tab-caps 11/28/22 omeprazole 40 mg capsule,delayed 40 mg PO DAILY #90 caps 11/28/22 release tamsulosin 0.4 mg capsule 0.8 mg PO HS #180 caps 12/01/22 losartan 100 mg tablet 100 mg PO DAILY #90 tabs 12/29/22 Allergies Allergy/AdvReac Type Severity Reaction Status Date / Time hornet venom Allergy Severe Anaphylaxis Verified 12/31/22 13:12 cephalexin [From Keflex] AdvReac Intermediate headaches Verified 12/31/22 13:12 finasteride [From Proscar] AdvReac Intermediate testicle Verified 12/31/22 13:12 pain Tetracyclines AdvReac Intermediate NAUSEA Verified 12/31/22 13:12 erythromycin base AdvReac Unknown NAUSEA Verified 12/31/22 13:12 General Stated Complaint: Laceration CELSO: 3 Review of Systems Narrative: Otherwise well, tetanus up-to-date, 4 systems were reviewed COUNTS INCLUDE 234 BEDS AT THE [facility] All Active Problems (Updated 02/15/23 @ 12:37 by Jared Justin MD) Laceration of right wrist (Acute) Status post arthroscopy of right shoulder (Acute 09/05/22) s/p rotator cuff repair of supraspinatus, arthroscopic biceps tenodesis, extensive debridement and subacromial decompression Asthma (Chronic) Diabetes mellitus (Chronic 03/10/13) Diabetic peripheral neuropathy associated with type 2 diabetes mellitus (Chronic 12/18/17) Gastroesophageal reflux disease (Chronic) Hearing loss (Chronic) Right lumbar radiculopathy (Chronic 12/06/15) Ulcerative colitis (Chronic) mild Inguinodynia, left (Acute) Prostatitis (Acute) Hydrocele (Acute) History of tobacco use (Acute) Family history of colon cancer (Acute) Diverticulosis of sigmoid colon (Acute) Colon polyp (Acute) Pain in left testicle (Acute) BPH loc w urin obs/LUTS (Acute) Microscopic hematuria (Acute) Left inguinal pain (Acute) Lumbar back pain with radiculopathy affecting left lower extremity (Acute) Hiatal hernia with GERD (Acute) Dysuria (Acute) Exertional dyspnea (Acute) Hyperlipidemia (Acute) Right shoulder pain (Acute) Traumatic tear of right rotator cuff (Acute 01/01/22) Skin lesion (Acute) Medical History Abnormal colonoscopy 02/22/19 tubular adenoma ascending and transverse colon, sessile serrated adenoma @ 50cm, rectosigmoid colon moderately active chronic colitis/proctitis. mg Bursitis of right shoulder COPD (chronic obstructive pulmonary disease) DM2 (diabetes mellitus, type 2) Esophagitis Essential hypertension GERD (gastroesophageal reflux disease) Glaucoma surgery fixed Inguinal hernia of left side without obstruction or gangrene Skin cancer removal x2 weeks ago Skin cancer, basal cell (10/08/16) Subdural hemorrhage Age 17, and a tree fell and hit him age 47 Tendonitis of long head of biceps brachii of right shoulder Ulcerative colitis [place] [facility] [place] [facility] History of appendectomy History of esophagogastroduodenoscopy (EGD) (~06/28/21) History of herniorrhaphy (10/19/18) left tj, dr perez History of open reduction and internal fixation (ORIF) procedure wrist and ankle Family History Mother Leukemia Father Neoplasm Grandfather Neoplasm STOMACH Grandmother Diabetes Colitis Brother Prostate cancer Nephew Prostate cancer Social History Smoking/Tobacco Use Status: Former Tobacco Use Quit Date: 11/23/91 Pack-years: 20 Second Hand Exposure: Yes Smoking risk assessment performed?: Yes Alcohol Intake: former Drug use: Never Substance use type: does not use Caregiver/Support person: No Housing: house Number of Children: 2 Communication Needs: Hard of Hearing Do you need help understanding health information?: Rarely current occupation: Retired Pets and animals: No Sexually active: No Do you think of yourself as: straight/heterosexual Current gender identity: male What is your relationship status?: How often do you talk on the phone with friends or family?: three or more times per week How often do you get together with friends or relatives?: never How often do you attend lutheran or jainism services?: decline to answer Do you belong to any clubs or organized social groups?: no Panel score (0-1 are the most socially isolated patients): 1 What type of physical activity do you participate in: walking Duration: > 90 minutes/day Frequency: daily Special harmeet needs: No Seatbelt use: always Helmet use: Yes Helmet use: always Drive 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 Pleasant, well groomed, interactive. HEAD: Normocephalic, atraumatic ENT: Mucous membranes moist, oropharynx unremarkable, External ear exam unremarkable EYES: PERRL, EOMI EXT: Full ROM, right distal volar surface of the forearm at the wrist crease has an approximately 2 cm laceration. 2+ radial pulse, capillary fill less than 2 seconds, normal motor and sensory testing. No foreign body seen. Neuro: Grossly normal neurologic exam, conversant, interactive. Psych: Speech fluent, thoughts congruent, affect normal Course Vital Signs Vital signs: Vital Signs Temperature 36.5 C 02/15/23 12:09 Pulse 79 02/15/23 12:09 Respiratory Rate 18 02/15/23 12:09 Pulse Oximetry 97 02/15/23 12:09 Temperature 36.5 C 02/15/23 12:09 Pulse 79 02/15/23 12:09 Respiratory Rate 18 02/15/23 12:09 Pulse Oximetry 97 02/15/23 12:09 Oxygen Delivery Method Room Air 02/15/23 12:09 Oxygen Flow Rate 0 02/15/23 12:09 Procedures Laceration Laceration 1: Site: upper extremity Side (If applicable): right Description: linear Depth: simple, single layer Local Anesthetic: Lidocaine 1% Amount of anesthesia used (mL): 2 Pre-repair: wound explored and irrigated extensively Skin layer closed with: nylon Size (cm): 4-0 Number of sutures: 4 Technique: simple, interrupted
== END 2023-02-15 12:53 | disposition home or self-care (01) ==
PROVIDERS: Emergency Provider Emergency Medicine; PCP Nurse Practitioner Family
DX: S61.511A Laceration without foreign body of right wrist, initial encounter (principal); W26.8XXA Contact with other sharp object(s), not elsewhere classified, initial encounter
CPT/HCPCS: 12001

== ENCOUNTER 2023-02-16 02:29 | Outpatient (CLI) | payer MEDICARE, SELFPAY ==
[2023-02-16 10:00] LABS: Abs Immature Grans 0.02 10^3/uL (0.0-0.06); Absolute Basophil Count 0.03 10^3/uL (0.0-0.2); Absolute Eosinophil Count 0.17 10^3/uL (0.0-0.7); Absolute Lymphocyte Count 1.05 10^3/uL (1.2-3.4); Absolute Monocyte Count 0.58 10^3/uL (0.1-0.8); Absolute Neutrophil Count 4.78 10^3/uL (1.2-6.7); Basophils % 0.5; Eosinophils % 2.6; HGB 12.6 g/dL (13.5-17.5); Immature Grans % 0.3; Lymphocytes % 15.8; MCH 33.1 pg (27.0-33.0); MCHC 32.3 % (32.0-36.0); MCV 102 fL (80-95); MPV 10.9 fL (8.0-11.0); Monocytes % 8.7; Neutrophils % 72.1; Platelet Count 184 10^3/uL (130-400); RBC 3.81 10^6/uL (4.36-5.78); RDW 12.4 % (11.8-14.1); RDW-SD 46.7 fL; WBC 6.63 10^3/uL (4.4-10.8)
[2023-02-16 10:02] LABS: ESR 19 mm/hr (0-20)
[2023-02-16 10:06] LABS: ALT 21 U/L (16-63); AST 10 U/L (15-37); Albumin 3.7 g/dL (3.4-5.0); Alkaline Phosphatase 79 U/L (46-116); Anion Gap 7.8 mmol/L (3-11); BUN 19 mg/dL (7-18); Bilirubin, Total 0.4 mg/dL (0.2-1.0); C-Reactive Protein 0.83 mg/dL (0.0-0.3); CO2 27.2 mmol/L (21.0-32.0); CREATININE 1.6 mg/dL (0.70-1.30); Calcium 9.2 mg/dL (8.5-10.1); Chloride 106 mmol/L (98-107); Estimated GFR 44.93 (mL/min/1.73m2); Glucose 263 mg/dL (74-106); Sodium 141 mmol/L (136-145); Total Protein 8.1 g/dL (6.4-8.2)
== END 2023-02-16 02:30 | disposition home or self-care (01) ==
LOC: LBO 02:30
PROVIDERS: PCP Nurse Practitioner Family; Visit Provider Nurse Practitioner Adult Health
DX: K51.811 Other ulcerative colitis with rectal bleeding (principal); K51.50 Left sided colitis without complications
CPT/HCPCS: 36415; 80053; 85652; 99283; 73630; 85025; 86140; 99282

== ENCOUNTER 2023-02-16 09:49 | Emergency (ER) | payer MEDICARE, SELFPAY ==
[2023-02-16 09:54] VITALS: BP 165/75; PULSE 67; RESP 18; O2SAT 95
--- NOTE | 2023-02-16 10:19 | ED.GENADUL_ITS ---
Discharge Plan Disposition Patient Disposition: Home Discharge Details Clinical Impression: Puncture wound of foot without foreign body Primary Care Provider: Deacon Watters ED Provider: Yojana Guido Home Meds and New Rx's Prescriptions: Continued naproxen 250 mg tablet 250 - 500 mg PO BID PRN (Reason: pain and inflammation) Qty: 30 0RF Rx Instructions: take with a meal acetaminophen [Tylenol] 325 mg tablet 650 mg PO Q4H PRN sulfasalazine 500 mg tablet 0.5 gm PO DAILY empagliflozin 10 mg tablet 10 mg PO DAILY Qty: 90 3RF metformin 500 mg tablet 1,000 mg PO DAILY albuterol sulfate [ProAir HFA] 90 mcg/actuation HFA aerosol inhaler 2 puff Inhalation Q6H PRN Qty: 1 4RF (DME) OneTouch Ultra Blue Test Strip Strip See Rx Instructions .ROUTE .MEDSUPPLY Qty: 100 4RF Rx Instructions: One Daily epinephrine [EpiPen] 0.3 mg/0.3 mL auto-injector 0.3 ml IM ONCE Qty: 1 0RF Rx Instructions: SEVERE ALLERGIC REACTION TO INSECT STING sumatriptan succinate [Imitrex] 50 mg tablet 50 mg PO ONCE PRN (Reason: migraine headache) Qty: 7 5RF (DME) pen needle, diabetic [Pen Needle] 31 gauge x 5/16 needle 1 ea Miscellaneous DAILY Qty: 100 4RF Rx Instructions: BD ultrafine diclofenac sodium 1 % gel 2 g topical QID Qty: 100 0RF Rx Instructions: apply to single elbow, wrist or hand; for hand includes palm/fingers/back of hand propranolol [Inderal LA] 80 mg capsule,extended release 24 hr 160 mg PO DAILY Qty: 180 3RF Rx Instructions: FOR MIGRAINE PROPHYLAXIS ciprofloxacin HCl 500 mg tablet 500 mg PO BID Qty: 14 0RF omeprazole 40 mg capsule,delayed release(DR/EC) 40 mg PO DAILY Qty: 90 3RF folic acid 1 mg tablet 1 mg PO DAILY Qty: 90 4RF glipizide 10 mg tablet 10 mg PO DAILY Qty: 90 4RF tamsulosin 0.4 mg capsule 0.8 mg PO HS Qty: 180 3RF Rx Instructions: Take 2 caps daily losartan 100 mg tablet 100 mg PO DAILY Qty: 90 3RF fluticasone propionate 16 GM spray,suspension 2 spr NS HS Uceris 2 mg/actuation Foam [address] .Q2D WEEKLY insulin glargine [Basaglar KwikPen U-100 Insulin] 100 unit/mL (3 mL) insulin pen 65 unit subcut HS Discharge Instructions Instructions: Puncture Wound (ED) Additional Instructions: No evidence of broken bones or foreign body noted on x-ray. Please keep it clean and dry. Return to the ER or be seen sooner for any signs of infection including increased red streaks, drainage or swelling. Please follow-up with orthopedics if you do not regain full movement of your toe. Please take Tylenol or Ibuprofen with food every 4-6 hours as needed for pain and swelling. Follow up with primary care provider in 3-5 days. Return to ED sooner if any worsening or concerns. Increase oral fluids. Referrals: Deacon Watters NP [Primary Care Provider] - Kingsley Mg MD [ [facility] STAFF PHYSICIAN] - 2 weeks (If no return of movement) Discharge Data Discharge Date/Time-TO BE ENTERED AT DEPARTURE: 02/16/23 11:04 Medical Decision Making 72-year-old male presents to the ER with a chief complaint of right great toe puncture wound which he noticed yesterday after arriving home. Patient was seen in the ER yesterday for hand laceration after dropping a toilet. He did drop a piece of porcelain onto his right foot and he pulled a piece of porcelain out of a laceration to his toe. He reports he is having trouble moving his great toe. He does have some movement noted no active bleeding at this time there is a some ecchymosis and contusion just distal to the puncture wound. He is up-to-date on his tetanus vaccination. He does have a past medical history of diabetes mellitus and diabetic peripheral neuropathy, asthma ulcerative colitis and hyperlipidemia. X-ray foot ordered to rule out foreign body and/or fracture. No evidence of foreign body or fracture noted on the x-ray. No suturable laceration noted. We will apply dressing discharge home. This text was generated using [employer] system, please disregard any oddities of phrase or misspellings. HPI General Mode of arrival: ambulatory . Date/Time Provider Initiated Documentation: 02/16/23 09:54 . Limitations to Documentation: no limitations . Information obtained by: patient, RN notes reviewed and old records reviewed . HPI Narrative: 72-year-old male presents to the ER with a chief complaint of right great toe puncture wound which he noticed yesterday after arriving home. Patient was seen in the ER yesterday for hand laceration after dropping a toilet. He did drop a piece of porcelain onto his right foot and he pulled a piece of porcelain out of a laceration to his toe. He reports he is having trouble moving his great toe. He does have some movement noted no active bleeding at this time there is a some ecchymosis and contusion just distal to the puncture wound. He is up-to-date on his tetanus vaccination. He does have a past medical history of diabetes mellitus and diabetic peripheral neuropathy, asthma ulcerative colitis and hyperlipidemia. Related Data Home Medications Medication Instructions Recorded Confirmed budesonide 2 mg/actuation rectal [address] .Q2D WEEKLY 10/18/18 02/16/23 foam (Uceris) fluticasone propionate 50 2 spr NS HS 10/18/18 02/16/23 mcg/actuation nasal spray,suspension acetaminophen 325 mg tablet 650 mg PO Q4H PRN 03/07/19 02/16/23 (Tylenol) sulfasalazine 500 mg tablet 0.5 gm PO DAILY 10/11/19 02/16/23 albuterol sulfate 90 mcg/actuation 2 puff inhalation Q6H PRN ##1 12/07/20 02/16/23 aerosol inhaler (ProAir HFA) blood sugar diagnostic (OneTouch #100 ea 03/28/21 02/16/23 Ultra Blue Test Strip) epinephrine 0.3 mg/0.3 mL 0.3 ml IM ONCE #1 ea 05/01/21 02/16/23 injection, auto-injector (EpiPen) sumatriptan succinate 50 mg tablet 50 mg PO ONCE PRN migraine 01/13/22 02/16/23 (Imitrex) headache #7 tab-caps empagliflozin 10 mg tablet 10 mg PO DAILY #90 tabs 02/19/22 02/16/23 pen needle, diabetic 31 gauge x #100 ea 04/01/22 02/16/23 5/16 (Pen Needle) diclofenac sodium 1 % topical gel 2 g topical QID #100 grams 05/16/22 02/16/23 metformin 500 mg tablet 1,000 mg PO DAILY 05/20/22 02/16/23 propranolol 80 mg capsule,24 160 mg PO DAILY #180 tabs 06/18/22 02/16/23 hr,extended release (Inderal LA) insulin glargine 100 unit/mL (3 65 unit subcut HS 09/04/22 02/16/23 mL) subcutaneous pen (Basaglar KwikPen U-100 Insulin) naproxen 250 mg tablet 250 - 500 mg PO BID PRN pain and 09/17/22 02/16/23 inflammation #30 tabs ciprofloxacin HCl 500 mg tablet 500 mg PO BID #14 tabs 09/18/22 02/16/23 folic acid 1 mg tablet 1 mg PO DAILY #90 tab-caps 11/28/22 02/16/23 glipizide 10 mg tablet 10 mg PO DAILY #90 tab-caps 11/28/22 02/16/23 omeprazole 40 mg capsule,delayed 40 mg PO DAILY #90 caps 11/28/22 02/16/23 release tamsulosin 0.4 mg capsule 0.8 mg PO HS #180 caps 12/01/22 02/16/23 losartan 100 mg tablet 100 mg PO DAILY #90 tabs 12/29/22 02/16/23 Previous Rx's Medication Instructions Recorded albuterol sulfate 90 mcg/actuation 2 puff inhalation Q6H PRN ##1 12/07/20 aerosol inhaler (ProAir HFA) blood sugar diagnostic (OneTouch #100 ea 03/28/21 Ultra Blue Test Strip) epinephrine 0.3 mg/0.3 mL 0.3 ml IM ONCE #1 ea 05/01/21 injection, auto-injector (EpiPen) sumatriptan succinate 50 mg tablet 50 mg PO ONCE PRN migraine 01/13/22 (Imitrex) headache #7 tab-caps empagliflozin 10 mg tablet 10 mg PO DAILY #90 tabs 02/19/22 pen needle, diabetic 31 gauge x #100 ea 04/01/22/ (Pen Needle) diclofenac sodium 1 % topical gel 2 g topical QID #100 grams 05/16/22 propranolol 80 mg capsule,24 160 mg PO DAILY #180 tabs 06/18/22 hr,extended release (Inderal LA) naproxen 250 mg tablet 250 - 500 mg PO BID PRN pain and 09/17/22 inflammation #30 tabs ciprofloxacin HCl 500 mg tablet 500 mg PO BID #14 tabs 09/18/22 folic acid 1 mg tablet 1 mg PO DAILY #90 tab-caps 11/28/22 glipizide 10 mg tablet 10 mg PO DAILY #90 tab-caps 11/28/22 omeprazole 40 mg capsule,delayed 40 mg PO DAILY #90 caps 11/28/22 release tamsulosin 0.4 mg capsule 0.8 mg PO HS #180 caps 12/01/22 losartan 100 mg tablet 100 mg PO DAILY #90 tabs 12/29/22 Allergies Allergy/AdvReac Type Severity Reaction Status Date / Time hornet venom Allergy Severe Anaphylaxis Verified 02/16/23 09:57 cephalexin [From Keflex] AdvReac Intermediate headaches Verified 02/16/23 09:57 finasteride [From Proscar] AdvReac Intermediate testicle Verified 02/16/23 09:57 pain Tetracyclines AdvReac Intermediate NAUSEA Verified 02/16/23 09:57 erythromycin base AdvReac Unknown NAUSEA Verified 02/16/23 09:57 General Stated Complaint: Laceration CELSO: 4 Review of Systems All systems reviewed & are unremarkable except as noted in HPI and below Integumentary/Breasts Skin/Breast: Reports as per HPI and Reports wounds PFSH All Active Problems (Updated 02/16/23 @ 10:50 by Yojana Guido NP) Laceration of right wrist (Acute) Puncture wound of foot without foreign body (Acute) Status post arthroscopy of right shoulder (Acute 09/05/22) s/p rotator cuff repair of supraspinatus, arthroscopic biceps tenodesis, extensive debridement and subacromial decompression Asthma (Chronic) Diabetes mellitus (Chronic 03/10/13) Diabetic peripheral neuropathy associated with type 2 diabetes mellitus (Chronic 12/18/17) Gastroesophageal reflux disease (Chronic) Hearing loss (Chronic) Right lumbar radiculopathy (Chronic 12/06/15) Ulcerative colitis (Chronic) mild Inguinodynia, left (Acute) Prostatitis (Acute) Hydrocele (Acute) History of tobacco use (Acute) Family history of colon cancer (Acute) Diverticulosis of sigmoid colon (Acute) Colon polyp (Acute) Pain in left testicle (Acute) BPH loc w urin obs/LUTS (Acute) Microscopic hematuria (Acute) Left inguinal pain (Acute) Lumbar back pain with radiculopathy affecting left lower extremity (Acute) Hiatal hernia with GERD (Acute) Dysuria (Acute) Exertional dyspnea (Acute) Hyperlipidemia (Acute) Right shoulder pain (Acute) Traumatic tear of right rotator cuff (Acute 01/01/22) Skin lesion (Acute) Medical History Abnormal colonoscopy 02/22/19 tubular adenoma ascending and transverse colon, sessile serrated adenoma @ 50cm, rectosigmoid colon moderately active chronic colitis/proctitis. mg Bursitis of right shoulder COPD (chronic obstructive pulmonary disease) DM2 (diabetes mellitus, type 2) Esophagitis Essential hypertension GERD (gastroesophageal reflux disease) Glaucoma surgery fixed Inguinal hernia of left side without obstruction or gangrene Skin cancer removal x2 weeks ago Skin cancer, basal cell (10/08/16) Subdural hemorrhage Age 17, and a tree fell and hit him age 47 Tendonitis of long head of biceps brachii of right shoulder Ulcerative colitis Surgical History Cholecystectomy Colonoscopy - [facility] 07[place]13/14[place] [facility] [place] of appendectomy History of esophagogastroduodenoscopy (EGD) (~06/28/21) History of herniorrhaphy (10/19/18) left indirect, dr perez History of open reduction and internal fixation (ORIF) procedure wrist and ankle Family History Mother Leukemia Father Neoplasm Grandfather Neoplasm STOMACH Grandmother Diabetes Colitis Brother Prostate cancer Nephew Prostate cancer Social History Smoking/Tobacco Use Status: Former Tobacco Use Quit Date: 11/23/91 Pack-years: 20 Second Hand Exposure: Yes Smoking risk assessment performed?: Yes Alcohol Intake: former Drug use: Never Substance use type: does not use Caregiver/Support person: No Housing: house Number of Children: 2 Communication Needs: Hard of Hearing Do you need help understanding health information?: Rarely current occupation: Retired Pets and animals: No Sexually active: No Do you think of yourself as: straight/heterosexual Current gender identity: male What is your relationship status?: How often do you talk on the phone with friends or family?: three or more times per week How often do you get together with friends or relatives?: never How often do you attend shinto or islam services?: decline to answer Do you belong to any clubs or organized social groups?: no Panel score (0-1 are the most socially isolated patients): 1 What type of physical activity do you participate in: walking Duration: > 90 minutes/day Frequency: daily Special harmeet needs: No Seatbelt use: always Helmet use: Yes Helmet use: always Drive intox or ride w/intox drivers' cash clerk: No Do you feel safe at home: Yes Do you feel safe in your relationship?: Yes Victim of physical abuse: No Victim of emotional abuse: No Victim of sexual abuse: No Would you like helpful sources: No Additional Social history: lives alone Exam Extrem Left lower extremity: foot Details: normal capillary refill, abnormal ROM of toe Details: pain with active ROM and laceration dorsal great toe Details: stellate and puncture Ankle/foot/toe images: 1. Puncture Wound 2. Contusion Course Vital Signs Vital signs: Vital Signs Pulse 67 02/16/23 09:54 Respiratory Rate 18 02/16/23 09:54 Blood Pressure 165/75 H 02/16/23 09:54 Pulse Oximetry 95 02/16/23 09:54 Pulse 67 02/16/23 09:54 Respiratory Rate 18 02/16/23 09:54 Respiratory Effort Labored 02/16/23 09:58 Blood Pressure 165/75 H 02/16/23 09:54 Blood Pressure Position Supine 02/16/23 09:54 Pulse Oximetry 95 02/16/23 09:54 Oxygen Delivery Method Room Air 02/16/23 09:54 Oxygen Flow Rate 0 02/16/23 09:54
--- NOTE | 2023-02-16 10:30 | NUR.NOTE ---
Nursing Note: patient transferred to [facility] via wheelchair. denies need for pain medication at this time. able to ambulate with minimal assistance.
--- NOTE | 2023-02-16 10:39 | DI.RAD_ITS ---
Exam(s) XR FOOT RT COMPLETE EXAM: XR FOOT RT COMPLETE CLINICAL HISTORY: Great toe puncture, R/O FB/Fx. TECHNIQUE: 2D digital imaging was performed. Three views. COMPARISON: No exams were available for comparison FINDINGS: BONES: No acute fracture is present. No bony destructive lesion is seen. JOINTS: No dislocation present. SOFT TISSUE: Swelling. No foreign body. IMPRESSION: Soft tissue swelling at great toe. No fracture or foreign body. DATA REPOSITORY: RADIATION DOSE DELIVERED:
== END 2023-02-16 11:04 | disposition home or self-care (01) ==
PROVIDERS: Emergency Provider Registered Nurse Emergency; PCP Nurse Practitioner Family
DX: S91.131A Puncture wound without foreign body of right great toe without damage to nail, initial encounter (principal); I10 Essential (primary) hypertension; E11.42 Type 2 diabetes mellitus with diabetic polyneuropathy; J44.9 Chronic obstructive pulmonary disease, unspecified; E78.5 Hyperlipidemia, unspecified; Z79.84 Long term (current) use of oral hypoglycemic drugs; Z79.52 Long term (current) use of systemic steroids; Z79.4 Long term (current) use of insulin; W20.8XXA Other cause of strike by thrown, projected or falling object, initial encounter
CPT/HCPCS: 99283; 73630; 99282

== ENCOUNTER 2023-02-17 13:25 | Outpatient (REF) | payer MEDICARE, SELFPAY ==
[2023-02-18 11:22] LABS: Campylobacter PCR Negative (Negative); Salmonella PCR Negative (Negative); Shiga Toxin PCR Negative (Negative); Shigella/Enteroinvasive Ecoli Negative (Negative)
[2023-02-20 22:08] LABS: Calprotectin 211 mcg/g
== END 2023-02-17 13:26 | disposition home or self-care (01) ==
LOC: LBN 13:25
PROVIDERS: PCP Nurse Practitioner Family; Visit Provider Nurse Practitioner Adult Health
DX: R19.7 Diarrhea, unspecified (principal); K51.811 Other ulcerative colitis with rectal bleeding; K51.50 Left sided colitis without complications
CPT/HCPCS: 87493; 87505; 83993

== ENCOUNTER → 2023-02-23 08:12 | Outpatient (BNVA) | payer MEDICARE, SELFPAY | PROVIDERS: PCP Nurse Practitioner Family; Visit Provider Nurse Practitioner Gerontology | DX: N40.1 Benign prostatic hyperplasia with lower urinary tract symptoms (principal); R31.0 Gross hematuria; Z80.42 Family history of malignant neoplasm of prostate; Z48.02 Encounter for removal of sutures | CPT/HCPCS: 81003; 99214 ==

== ENCOUNTER 2023-02-23 08:37 | Outpatient (REF) | payer MEDICARE, SELFPAY | END 2023-02-23 08:38 | disposition home or self-care (01) | LOC: LBN 08:37 | PROVIDERS: PCP Nurse Practitioner Family; Visit Provider Nurse Practitioner Gerontology | DX: N39.0 Urinary tract infection, site not specified (principal) | CPT/HCPCS: 87077; 87086; 87186 ==

== ENCOUNTER 2023-03-09 09:19 | Day surgery (SDC) | payer MEDICARE, SELFPAY ==
[2023-03-09 09:31] VITALS: BP 146/75; PULSE 65; RESP 20; TEMP 36.6; O2SAT 100
--- NOTE | 2023-03-09 09:51 | HPE_ITS ---
Date of service: 03/09/23 Time of Service: 10:14 Assessment and Plan Assessment and plan (1) Microscopic hematuria: Status: Acute Assessment and plan: For cystoscopy and possible TURBT History of Present Illness History of Present Illness Chief Complaint: Gross hematuria Narrative: This is a 72 year old man who is routinely followed in our office for BPH with LUTS. He has had recurrent Klebsiella UTIs. During one such UTI epsiode, he had gross hematuria. He has a history of GERD and ulcerative colitis followed by GI at [facility]. On a recent CT scan done for GI followup, a new mass in the bladder was identified. He presents for cystoscopy with possible TURBT Review of Systems Narrative: No fevers or chills Decreased hearing acuity. No vision change or dysphasia Hx Diabetes. No thyroid No shortness of breath, cough or hemoptysis No chest pain or palpitations Hiatal hernia, GERD, ulcerative colitis. No hepatitis, ulcers or jaundice No seizures, strokes or peripheral neuropathy No bleeding disorders or anemia Chronic low back pain, arthralgia PFSH All Active Problems Asthma (Chronic) Diabetes mellitus (Chronic 03/10/13) Diabetic peripheral neuropathy associated with type 2 diabetes mellitus (Chronic 12/18/17) Gastroesophageal reflux disease (Chronic) Hearing loss (Chronic) Right lumbar radiculopathy (Chronic 12/06/15) Ulcerative colitis (Chronic) mild Inguinodynia, left (Acute) Prostatitis (Acute) Hydrocele (Acute) History of tobacco use (Acute) Family history of colon cancer (Acute) Diverticulosis of sigmoid colon (Acute) Colon polyp (Acute) Pain in left testicle (Acute) BPH loc w urin obs/LUTS (Acute) Microscopic hematuria (Acute) Left inguinal pain (Acute) Lumbar back pain with radiculopathy affecting left lower extremity (Acute) Hiatal hernia with GERD (Acute) Dysuria (Acute) Exertional dyspnea (Acute) Hyperlipidemia (Acute) Right shoulder pain (Acute) Traumatic tear of right rotator cuff (Acute 01/01/22) Skin lesion (Acute) Status post arthroscopy of right shoulder (Acute 09/05/22) s/p rotator cuff repair of supraspinatus, arthroscopic biceps tenodesis, extensive debridement and subacromial decompression Laceration of right wrist (Acute) Puncture wound of foot without foreign body (Acute) Medical History Abnormal colonoscopy 02/22/19 tubular adenoma ascending and transverse colon, sessile serrated adenoma @ 50cm, rectosigmoid colon moderately active chronic colitis/proctitis. mg Bursitis of right shoulder COPD (chronic obstructive pulmonary disease) DM2 (diabetes mellitus, type 2) Esophagitis Essential hypertension GERD (gastroesophageal reflux disease) Glaucoma surgery fixed Inguinal hernia of left side without obstruction or gangrene Skin cancer removal x2 weeks ago Skin cancer, basal cell (10/08/16) Subdural hemorrhage Age 17, and a tree fell and hit him age 47 Tendonitis of long head of biceps brachii of right shoulder Ulcerative colitis Surgical History Cholecystectomy Colonoscopy - [facility] 07/13/14; [facility] [place] History of appendectomy History of cataract surgery History of esophagogastroduodenoscopy (EGD) (~06/28/21) History of herniorrhaphy (10/19/18) left indirect, dr perez History of open reduction and internal fixation (ORIF) procedure wrist and ankle Family History Mother Leukemia Father Neoplasm Grandfather Neoplasm STOMACH Grandmother Diabetes Colitis Brother Prostate cancer Nephew Prostate cancer Social History Smoking/Tobacco Use Status: Former Tobacco Use Quit Date: 11/23/91 Pack-years: 20 Second Hand Exposure: Yes Smoking risk assessment performed?: Yes Alcohol Intake: former Drug use: Never Substance use type: does not use Details: alcohol t-7 Caregiver/Support person: No Housing: house Number of Children: 2 Communication Needs: Hard of Hearing Do you need help understanding health information?: Rarely current occupation: Retired Pets and animals: No Sexually active: No Do you think of yourself as: straight/heterosexual Current gender identity: male What is your relationship status?: How often do you talk on the phone with friends or family?: three or more times per week How often do you get together with friends or relatives?: never How often do you attend yazidism or yazdanism services?: decline to answer Do you belong to any clubs or organized social groups?: no Panel score (0-1 are the most socially isolated patients): 1 What type of physical activity do you participate in: walking Duration: > 90 minutes/day Frequency: daily Special harmeet needs: No Seatbelt use: always Helmet use: Yes Helmet use: always Drive intox or ride w/intox motorcoach driver: No Do you feel safe at home: Yes Do you feel safe in your relationship?: Yes Victim of physical abuse: No Victim of emotional abuse: No Victim of sexual abuse: No Would you like helpful sources: No Additional Social history: lives alone Meds Allergies and Home Medications Allergies Allergy/AdvReac Type Severity Reaction Status Date / Time hornet venom Allergy Severe Anaphylaxis Verified 03/09/23 09:59 cephalexin [From Keflex] AdvReac Intermediate headaches Verified 03/09/23 09:59 finasteride [From Proscar] AdvReac Intermediate testicle Verified 03/09/23 09:59 pain Tetracyclines AdvReac Intermediate NAUSEA Verified 03/09/23 09:59 erythromycin base AdvReac Unknown NAUSEA Verified 03/09/23 09:59 Home Medications Medication Instructions Recorded Confirmed Type budesonide 2 mg/actuation rectal 1 appful [place] .Q2D WEEKLY 10/18/18 03/09/23 History foam (Uceris) fluticasone propionate 50 2 spr NS HS 10/18/18 03/09/23 History mcg/actuation nasal spray,suspension acetaminophen 325 mg tablet 650 mg PO Q4H PRN 03/07/19 03/09/23 History (Tylenol) sulfasalazine 500 mg tablet 0.5 gm PO BID 10/11/19 03/09/23 History albuterol sulfate 90 mcg/actuation 2 puff inhalation Q6H PRN ##1 12/07/20 03/09/23 Rx aerosol inhaler (ProAir HFA) blood sugar diagnostic (OneTouch #100 ea 03/28/21 02/16/23 Rx Ultra Blue Test Strip) epinephrine 0.3 mg/0.3 mL 0.3 ml IM ONCE #1 ea 05/01/21 03/06/23 Rx injection, auto-injector (EpiPen) sumatriptan succinate 50 mg tablet 50 mg PO ONCE PRN migraine 01/13/22 03/09/23 Rx (Imitrex) headache #7 tab-caps pen needle, diabetic 31 gauge x #100 ea 04/01/22 02/16/23 Rx 5/16 (Pen Needle) diclofenac sodium 1 % topical gel 2 g topical QID #100 grams 05/16/22 03/09/23 Rx metformin 500 mg tablet 500 mg PO DAILY 05/20/22 03/09/23 History insulin glargine 100 unit/mL (3 70 unit subcut HS 09/04/22 03/09/23 History mL) subcutaneous pen (Khadraaglesdras HardingDemarcus U-100 Insulin) naproxen 250 mg tablet 250 - 500 mg PO BID PRN pain and 09/17/22 03/06/23 Rx inflammation #30 tabs folic acid 1 mg tablet 1 mg PO DAILY #90 tab-caps 11/28/22 03/09/23 Rx glipizide 10 mg tablet 10 mg PO DAILY #90 tab-caps 11/28/22 03/09/23 Rx omeprazole 40 mg capsule,delayed 40 mg PO DAILY #90 caps 11/28/22 03/09/23 Rx release tamsulosin 0.4 mg capsule 0.8 mg PO HS #180 caps 12/01/22 03/09/23 Rx losartan 100 mg tablet 100 mg PO DAILY #90 tabs 12/29/22 03/09/23 Rx empagliflozin 10 mg tablet 10 mg PO DAILY #90 tabs 03/04/23 03/09/23 Rx propranolol 80 mg capsule,24 160 mg PO DAILY #180 tabs 03/04/23 03/09/23 Rx hr,extended release (Inderal LA) Exam Const General: cooperative Neck Neck: supple Resp Auscultation: clear to auscultation bilaterally Cardio Rate: regular rate Rhythm: regular rhythm GI Palpation: soft and no masses Neuro General: patient alert, patient awake and patient oriented x3 Time Spent Time spent with Patient: <40 minutes Time was spent: other
[2023-03-09] MEDS: CIPROFLOXACIN 400 MG/200 ML BAG 200 MG IVPB (09:58)
[2023-03-09] MEDS: Lactated Ringers 1,000 ML 80 ML IV (09:58)
--- NOTE | 2023-03-09 10:04 | ANES.PREOP_ITS ---
General Info Date of Service Date Performed: 03/09/23 Height: 6 ft 4 in Weight: 115.4 kg Body Mass Index (BMI): 30.9 Surgical Procedure: Operation Date: 03/09/23 10:25 Proposed Procedure Side Surgeon p Cystoscopy, Possible Transurethral Resection Bladder Tumor Rodrick Florentino MD Meds Allergies and Home Medications Allergies Allergy/AdvReac Type Severity Reaction Status Date / Time hornet venom Allergy Severe Anaphylaxis Verified 03/09/23 09:59 cephalexin [From Keflex] AdvReac Intermediate headaches Verified 03/09/23 09:59 finasteride [From Proscar] AdvReac Intermediate testicle Verified 03/09/23 09:59 pain Tetracyclines AdvReac Intermediate NAUSEA Verified 03/09/23 09:59 erythromycin base AdvReac Unknown NAUSEA Verified 03/09/23 09:59 Home Medication Medication Instructions Recorded budesonide 2 mg/actuation rectal 1 appful HI .Q2D WEEKLY 10/18/18 foam (Uceris) fluticasone propionate 50 2 spr NS HS 10/18/18 mcg/actuation nasal spray,suspension acetaminophen 325 mg tablet 650 mg PO Q4H PRN 03/07/19 (Tylenol) sulfasalazine 500 mg tablet 0.5 gm PO DAILY 10/11/19 albuterol sulfate 90 mcg/actuation 2 puff inhalation Q6H PRN ##1 12/07/20 aerosol inhaler (ProAir HFA) blood sugar diagnostic (OneTouch #100 ea 03/28/21 Ultra Blue Test Strip) epinephrine 0.3 mg/0.3 mL 0.3 ml IM ONCE #1 ea 05/01/21 injection, auto-injector (EpiPen) sumatriptan succinate 50 mg tablet 50 mg PO ONCE PRN migraine 01/13/22 (Imitrex) headache #7 tab-caps pen needle, diabetic 31 gauge x #100 ea 04/01/22 5/16 (Pen Needle) diclofenac sodium 1 % topical gel 2 g topical QID #100 grams 05/16/22 metformin 500 mg tablet 500 mg PO DAILY 05/20/22 insulin glargine 100 unit/mL (3 70 unit subcut HS 09/04/22 mL) subcutaneous pen (Basaglar KwikPen U-100 Insulin) naproxen 250 mg tablet 250 - 500 mg PO BID PRN pain and 09/17/22 inflammation #30 tabs folic acid 1 mg tablet 1 mg PO DAILY #90 tab-caps 11/28/22 glipizide 10 mg tablet 10 mg PO DAILY #90 tab-caps 11/28/22 omeprazole 40 mg capsule,delayed 40 mg PO DAILY #90 caps 11/28/22 release tamsulosin 0.4 mg capsule 0.8 mg PO HS #180 caps 12/01/22 losartan 100 mg tablet 100 mg PO DAILY #90 tabs 12/29/22 empagliflozin 10 mg tablet 10 mg PO DAILY #90 tabs 03/04/23 propranolol 80 mg capsule,24 160 mg PO DAILY #180 tabs 03/04/23 hr,extended release (Inderal LA) Current Visit Medications: Current Medications Generic Name Dose Route Start Last Admin Trade Name Freq PRN Reason Stop Dose Admin Ringer's Solution 1,000 mls @ 80 mls/hr 03/09/23 06:00 IV 04/05/23 23:59 INFUSION JANY Ciprofloxacin 400 mg in 200 mls @ 200 mls/hr 03/09/23 06:00 Cipro I.V. IVPB 03/09/23 18:00 PREOP JANY IV Miscellaneous Supplies 1 each 03/09/23 06:00 Iv Access IV 04/05/23 23:59 DIRECTED JANY Sodium Chloride 0 ml 03/09/23 06:00 Normal Saline Flush 10 Ml Syr IV 04/05/23 23:59 PRN PRN Sodium Chloride 0 ml 03/09/23 06:00 Normal Saline 10 Ml Vial IJ 04/05/23 23:59 DIRECTED PRN Sterile Water 0 ml 03/09/23 06:00 Water,Injection,Sterile 10 Ml Vial IJ 04/05/23 23:59 DIRECTED PRN PFSH Active Problems Active Problems: Problem Status Onset Code Asthma J45.909 Diabetes mellitus 03/10/13 E11.9 Diabetic peripheral neuropathy associated with type 2 diabetes mellitus 12/18/17 E11.42 Gastroesophageal reflux disease K21.9 Hearing loss H91.90 Right lumbar radiculopathy 12/06/15 M54.16 Ulcerative colitis K51.90 Inguinodynia, left R10.32 Prostatitis N41.9 Hydrocele N43.3 History of tobacco use Z87.891 Family history of colon cancer Z80.0 Diverticulosis of sigmoid colon K57.30 Colon polyp K63.5 Pain in left testicle N50.812 BPH loc w urin obs/LUTS N40.1 Microscopic hematuria R31.29 Left inguinal pain R10.32 Lumbar back pain with radiculopathy affecting left lower extremity M54.16 Hiatal hernia with GERD K21.9, K44.9 Dysuria R30.0 Exertional dyspnea R06.00 Hyperlipidemia E78.5 Right shoulder pain M25.511 Traumatic tear of right rotator cuff 01/01/22 S46.011A Skin lesion L98.9 Status post arthroscopy of right shoulder 09/05/22 Z98.890 Laceration of right wrist S61.511A Puncture wound of foot without foreign body S91.339A Medical History Medical History Abnormal colonoscopy 02/22/19 tubular adenoma ascending and transverse colon, sessile serrated adenoma @ 50cm, rectosigmoid colon moderately active chronic colitis/proctitis. mg Bursitis of right shoulder COPD (chronic obstructive pulmonary disease) DM2 (diabetes mellitus, type 2) Esophagitis Essential hypertension GERD (gastroesophageal reflux disease) Glaucoma surgery fixed Inguinal hernia of left side without obstruction or gangrene Skin cancer removal x2 weeks ago Skin cancer, basal cell (10/08/16) Subdural hemorrhage Age 17, and a tree fell and hit him age 47 Tendonitis of long head of biceps brachii of right shoulder Ulcerative colitis Surgical History Surgical History [place] [facility] [place] [facility] [place] History of appendectomy History of cataract surgery History of esophagogastroduodenoscopy (EGD) (~06/28/21) History of herniorrhaphy (10/19/18) left indirect, dr perez History of open reduction and internal fixation (ORIF) procedure wrist and ankle Tobacco Smoking/Tobacco Use Status: Former Tobacco Use Second hand exposure: Yes Alcohol Alcohol Intake: former Substance Use Substance use: Never Substance use type: does not use Details: alcohol t-7 Vital Signs and Lab Results Vital Signs Most Recent Vital Signs in EMR: Most Recent Vital Signs Temp Pulse Resp BP Pulse Ox 36.6 C 65 20 146/75 H 100 03/09/23 09:31 03/09/23 09:31 03/09/23 09:31 03/09/23 09:31 03/09/23 09:31 Point of Care Results Point of Care Results: Finger Stick Blood Glucose 156 03/09/23 09:48 Lab Results Blood Type / Crossmatch: No Data to Display Complete Blood Count: White Blood Count 6.63 10^3/uL (4.4-10.8) 02/16/23 09:48 Red Blood Count 3.81 10^6/uL (4.36-5.78) L 02/16/23 09:48 Hemoglobin 12.6 g/dL (13.5-17.5) L 02/16/23 09:48 Hematocrit 39.0 % (40.0-50.0) L 02/16/23 09:48 Platelet Count 184 10^3/uL (130-400) 02/16/23 09:48 Complete Metabolic Panel: Sodium 141 mmol/L (136-145) 02/16/23 09:48 Potassium 4.0 mmol/L (3.5-5.1) 02/16/23 09:48 Chloride 106 mmol/L (98-107) 02/16/23 09:48 Carbon Dioxide 27.2 mmol/L (21.0-32.0) 02/16/23 09:48 BUN 19 mg/dL (7-18) H 02/16/23 09:48 Creatinine 1.6 mg/dL (0.70-1.30) H 02/16/23 09:48 Est GFR (CKD-EPI 2020) 44.93 (mL/min/1.73m2) 02/16/23 09:48 Calcium 9.2 mg/dL (8.5-10.1) 02/16/23 09:48 Albumin 3.7 g/dL (3.4-5.0) 02/16/23 09:48 Glucose 263 mg/dL (74-106) H 02/16/23 09:48 C-Reactive Protein 0.83 mg/dL (0.0-0.3) H 02/16/23 09:48 Liver Function Panel: Alanine Aminotransferase (ALT/SGPT) 21 U/L (16-63) 02/16/23 09: 48 Aspartate Amino Transf (AST/SGOT) 10 U/L (15-37) L 02/16/23 09: 48 Coagulation Panel: No Data to Display Cardiac Panel: No Data to Display Arterial Blood Gas: No Data to Display Venous Blood Gas: No Data to Display Pancreas Panel: No Data to Display Thyroid Panel: No Data to Display Infectious Disease: No Data to Display Blood Cultures: No Data to Display Toxicology Panel: No Data to Display Imaging and Studies Imaging and Studies Study information below may be from another EMR and interpreted by another provider. Please see original notes in EMR for more complete details. EKG Summary: 11/18/2021: Exam: Resting ECG Reason for Exam: palpitations Patient Location: O HR:62 bpm ECG Measurements Heart Rate 62 AXIS HI 174 P 30 QRSd 150 QRS 48 QT 437 T15 QTc 442 Conclusion Sinus rhythm...normal P axis, V-rate 60- 99 Right bundle branch block...QRSd>120, terminal axis(90,270) Stress Test Summary: 11/21/2021: Stress ECG Conclusion 1. The resting electrocardiogram showed right bundle branch block 2. Patient exercised on the Trung protocol and completed a workload of 6.66 METS, limited by shortness of breath and dizziness 3. Normal hemodynamic response to exercise. The patient achieved 85% of predicted heart rate for age 4. Electrocardiographically there was no evidence of myocardial ischemia 5. Sporadic atrial and ventricular ectopic beats were noted Stout Treadmill Score is 3.5 which is Moderate risk. Anesthesia Assessment and Plan Anesthesia History Personal History: No History of Anesthesia Complications Family History: No Family History of Anesthesia Complications Exercise Tolerance Exercise Tolerance: Metabolic Equivalents<4 Pertinent Negatives Pertinent Negatives: No Symptoms of GERD Cardiac & Pulmonary Exam Cardiac Exam: Normal S1/S2 Heart Sounds Pulmonary Exam: Clear Bilateral Breath Sounds Implantable Cardiac Device Does patient have a Pacemaker or an ICD?: No Airway Exam Known Difficult Airway: No Mallampati Class: 1 Mouth Opening: Normal (> 3cm) Thyromental Distance: Greater than 3 cm Neck Range of Motion: Full ROM Neck Circumference: Normal Teeth Condition: Edentulous ASA Classification ASA Score: ASA 3 Emergency Case?: No NPO Status NPO Status: NPO Clears >2 hours, Solids >8 hours Anesthesia Plan Resuscitation Status: Full Code Anesthesia Technique: General Anesthesia Airway Planned: Natural Airway Monitors Used: Standard Monitors
[2023-03-09 10:10] VITALS: BMI 30.9
[2023-03-09] MEDS: Lidocaine 2% Jelly 6 ML SYR (10:43)
--- NOTE | 2023-03-09 10:55 | PAPNONF_PTH ---
PATIENT: Brian Rodriguez LOC: [facility] U#:[id number] AGE/SX: 72/M ROOM: RE03/09/[address]: Rodrick Florentino MD : [id number] BED: DIS: 03/09/2023 SPEC #: [id number] RECD: 03/09/23 12:55 STATUS: RUSSELL REQ #: [id number] CRUZ: 03/09/23 10:[address]: Rodrick Florentino DEPT: [facility] Cytology RECD BY: Nell Brar ENTERED: 03/09/23 12:55 SP TYPE: OLIVIA GONZALES DR: Deacon Watters, KIARRA Tissues: 1 - BODY FLUID CYTO(SPUTUM/URINE)[facility] Procedures: BODY FLUID CYTO(URINE/SPUTUM) Comments: [id number] (TOTAL VOLUME = 100 ml) (REFRIGERATED) (50 ml URINE & 30 ml CYTOLYT ADDED IN 2 CONTAINERS)
--- NOTE | 2023-03-09 10:58 | W.PM.DSUDISC ---
Date of service: 03/09/23 Time of Service: 10:58 Discharge Plan Disposition Patient Disposition: Home Condition: Stable Discharge Details Reason For Visit: cystoscopy Attending Provider: Rodrick Florentino Primary Care Provider: Deacon Watters Home Meds and New Rx's Prescriptions: No Action naproxen 250 mg tablet 250 - 500 mg PO BID PRN (Reason: pain and inflammation) Qty: 30 0RF Rx Instructions: take with a meal acetaminophen [Tylenol] 325 mg tablet 650 mg PO Q4H PRN sulfasalazine 500 mg tablet 0.5 gm PO BID metformin 500 mg tablet 500 mg PO DAILY albuterol sulfate [ProAir HFA] 90 mcg/actuation HFA aerosol inhaler 2 puff Inhalation Q6H PRN Qty: 1 4RF (DME) OneTouch Ultra Blue Test Strip Strip See Rx Instructions .ROUTE .MEDSUPPLY Qty: 100 4RF Rx Instructions: One Daily epinephrine [EpiPen] 0.3 mg/0.3 mL auto-injector 0.3 ml IM ONCE Qty: 1 0RF Rx Instructions: SEVERE ALLERGIC REACTION TO INSECT STING sumatriptan succinate [Imitrex] 50 mg tablet 50 mg PO ONCE PRN (Reason: migraine headache) Qty: 7 5RF (DME) pen needle, diabetic [Pen Needle] 31 gauge x 5/16 needle 1 ea Miscellaneous DAILY Qty: 100 4RF Rx Instructions: BD ultrafine diclofenac sodium 1 % gel 2 g topical QID Qty: 100 0RF Rx Instructions: apply to single elbow, wrist or hand; for hand includes palm/fingers/back of hand omeprazole 40 mg capsule,delayed release(DR/EC) 40 mg PO DAILY Qty: 90 3RF folic acid 1 mg tablet 1 mg PO DAILY Qty: 90 4RF glipizide 10 mg tablet 10 mg PO DAILY Qty: 90 4RF tamsulosin 0.4 mg capsule 0.8 mg PO HS Qty: 180 3RF Rx Instructions: Take 2 caps daily losartan 100 mg tablet 100 mg PO DAILY Qty: 90 3RF empagliflozin 10 mg tablet 10 mg PO DAILY Qty: 90 3RF propranolol [Inderal LA] 80 mg capsule,extended release 24hr 160 mg PO DAILY Qty: 180 3RF Rx Instructions: FOR MIGRAINE PROPHYLAXIS fluticasone propionate 16 GM spray,suspension 2 spr NS HS Uceris 2 mg/actuation Foam 1 appful ND .Q2D WEEKLY insulin glargine [Basaglar KwikPen U-100 Insulin] 100 unit/mL (3 mL) insulin pen 70 unit subcut HS Discharge Instructions Additional Instructions: followup 1 to 2 weeks to review cytology results Activity:: Activity as Tolerated Shower/Bathe:: 24 hours Diet:: As Tolerated Discharge Orders Discharge Orders: Discharge Order (Routine); Ordered 03/09/23 Ordered By: Rodrick Florentino DS: Diagnosis Discharge Diagnosis (1) Microscopic hematuria: Status: Acute
[2023-03-09 11:05] VITALS: BP 95/56; PULSE 63; RESP 18; TEMP 36.3; O2SAT 94
[2023-03-09] MEDS: Phenazopyridine 200 MG TAB PO (11:26)
--- NOTE | 2023-03-09 11:28 | W.ANESPOSTOP ---
Postoperative Evaluation Date, Time and Location Date Performed: 03/09/23 Time Performed: 11:28 Patient Location: Day Surgery Unit Vital Signs Most Recent Imported Vital Signs: Most Recent Vital Signs Temp Pulse Resp BP Pulse Ox 36.3 C L 63 18 95/56 L 94 03/09/23 11:05 03/09/23 11:05 03/09/23 11:05 03/09/23 11:05 03/09/23 11:05 Pain Score Most Recent Pain Score: Most Recent Pain Score Pain Level 0 03/09/23 11:05 Assessment Mental Status: Awake (Alert & Oriented to Patient Baseline) Airway and Respiratory Function: Patent airway with normal (patient baseline) respiratory exam Cardiovascular Function: Hemodynamically Stable Hydration Status: Adequately Hydrated Nausea & Vomiting: No Nausea or Vomiting Pain: Pt. Denies Any Pain Peripheral Nerve Block: Patient did not receive a nerve block
[2023-03-09 11:45] VITALS: BP 115/62; PULSE 60; RESP 20; TEMP 36.2; O2SAT 99
--- NOTE | 2023-03-09 12:34 | W.PM.OP ---
Date of service: 03/09/23 Time of Service: 12:34 Operative Note Operative Note DATE OF PROCEDURE: 03/09/23 PRE-OP DIAGNOSIS: Gross hematuria Recurrent UTIs POST-OP DIAGNOSIS: same PROCEDURE: Cystoscopy, bladder washings for cytology SURGEON: Rodrick Florentino ANESTHESIA TYPE: Local By Surgeon and General:No Airway Refer to Anesthesia Record ESTIMATED BLOOD LOSS: 25 PATHOLOGY: other (bladder washing for cytology) COMPLICATIONS: None Patient was transported to: same day Patient's condition: stable Implants: none Indications: This is a 72-year-old gentleman who has a history of bladder outlet obstruction along with recurrent Klebsiella urinary tract infections. He has had episodes of hematuria. He was evaluated with a CT scan in another facility. The scan was actually done for GI symptoms rather than his urinary tract. The CT raises questions of a mass within the bladder. He presents now for cystoscopy to complete his hematuria work-up. Findings: diffusely hemorrhagic bladder mucosa throughout with no papillary or nodular lesions Procedure Description: The patient was brought to the operating room on 03/09/2023. He was given preoperative IV antibiotics. After successful induction of general anesthesia without intubation, he was placed in the dorsal lithotomy position. His genitalia is prepped and draped. 2% Xylocaine jelly was instilled into the urethra to act as a local anesthetic. A 22 Latvian rigid cystoscope was passed through the urethra into the bladder. The urethra and bladder were inspected with the 30 degree lens. The pendulous, bulbar and membranous urethra was appeared normal with no strictures. The prostatic urethra showed a significant enlargement of the lateral lobes and an elevated bladder neck. The bladder neck was entered and the bladder mucosa was inspected. The bladder was diffusely erythematous and hemorrhagic appearing as would be expected with hemorrhagic cystitis. No active bleeding was seen. The bladder was reinspected with a 70 degree lens. I did not see any focal areas of papillary or nodular mucosal abnormalities. Because of the diffuse nature of the hemorrhagic mucosa, I elected not to take random biopsies but instead did a bladder washing using saline, aspirated the irrigant and send it off to the lab for cytology exam. If the cytology is abnormal, we will need to return to the operating room for additional biopsies and fulgurations.
== END 2023-03-09 12:22 | disposition home or self-care (01) ==
PROVIDERS: PCP Nurse Practitioner Family; Visit Provider Urology
PROC: 0TBB8ZZ Excision of Bladder, Via Natural or Artificial Opening Endoscopic (ICD-10-PCS; principal; 2023-03-09 10:15)
DX: R31.0 Gross hematuria (principal); N13.8 Other obstructive and reflux uropathy; N40.1 Benign prostatic hyperplasia with lower urinary tract symptoms
CPT/HCPCS: 52000; 88104; J0744; J2704; J3010

== ENCOUNTER → 2023-03-31 10:49 | Outpatient (BNVA) | payer MEDICARE, SELFPAY | PROVIDERS: PCP Nurse Practitioner Family; Referring Provider Nurse Practitioner Family; Visit Provider Urology | DX: N41.9 Inflammatory disease of prostate, unspecified (principal); R31.29 Other microscopic hematuria; E11.9 Type 2 diabetes mellitus without complications | CPT/HCPCS: 81003; 99214 ==

== ENCOUNTER 2023-03-31 17:52 | Outpatient (REF) | payer MEDICARE, SELFPAY | END 2023-03-31 17:53 | disposition home or self-care (01) | LOC: LBN 17:52 | PROVIDERS: PCP Nurse Practitioner Family; Visit Provider Urology | DX: N39.0 Urinary tract infection, site not specified (principal) | CPT/HCPCS: 87077; 87086; 87186 ==

== ENCOUNTER 2023-05-06 02:29 | Outpatient (CLI) | payer MEDICARE, SELFPAY ==
--- NOTE | 2023-05-06 08:00 | DI.US_ITS ---
Exam(s) US RENAL EXAM: US RENAL CLINICAL HISTORY: ? mass, hematuria, r31.29 TECHNIQUE: Ultrasound of both kidneys performed using standard protocol. COMPARISON: CT CT ABDOMEN PELVIS WO/W from 11/28/2019 US POCUS EXAM from 09/05/2022 FINDINGS: RIGHT KIDNEY: Measures 11.7 cm in length. There is a 3.2 x 3.4 cm cyst. Normal cortical thickness and corticomedul ameya differentiation .No solid masses There is a small 4 millimeter echogenic focus in the lower pole region consistent with probable nonob structive small lower pole calculus. LEFT KIDNEY: Measures 12.3 cm in length. No cysts evident. Normal cortical thickness and corticomedullary differe ntiaion. No solids masses. No intrarenal calculi nor hydonephrosis. URINARY BLADDER: Prevoid volume is 247 cc Postvoid volume is 18 cc No evidence of bladder mass nor diverticuli. Ureterovesical jets: Both identified and appear symmetrical IMPRESSION: 1. Possible small 4 millimeter calculus in lower pole region of the right kidney. No hydronephrosis . 2. Benign 3 cm cyst right kidney. No solid renal mass evident. DATA REPOSITORY:
== END 2023-05-06 02:49 ==
LOC: DI 02:29
PROVIDERS: PCP Nurse Practitioner Family; Visit Provider Urology
DX: R31.29 Other microscopic hematuria (principal)
CPT/HCPCS: 76770

== ENCOUNTER → 2023-05-12 13:47 | Outpatient (BNVA) | payer MEDICARE, SELFPAY | PROVIDERS: PCP Nurse Practitioner Family; Referring Provider Nurse Practitioner Family; Visit Provider Urology | DX: N41.9 Inflammatory disease of prostate, unspecified (principal); R31.29 Other microscopic hematuria; Z87.440 Personal history of urinary (tract) infections | CPT/HCPCS: 81003; 99213 ==

== ENCOUNTER 2023-05-24 19:25 | Emergency (ER) | payer MEDICARE, SELFPAY ==
[2023-05-24 19:40] VITALS: BP 112/46; PULSE 63; RESP 16; TEMP 36.8; O2SAT 100
--- NOTE | 2023-05-24 20:00 | DI.RAD_ITS ---
Exam(s) XR HAND LT COMPLETE EXAM: XR HAND LT COMPLETE CLINICAL HISTORY: trauma, pain. TECHNIQUE: 2D digital imaging was performed. Three views. COMPARISON: CR RIGHT THUMB from 12/09/2011 FINDINGS: BONES: No acute fracture is present. No bony destructive lesion is seen. JOINTS: No dislocation present. Mild degenerative changes of the interphalangeal joints. SOFT TISSUE: Normal. IMPRESSION: No acute abnormality. DATA REPOSITORY: RADIATION DOSE DELIVERED:
--- NOTE | 2023-05-24 20:00 | DI.RAD_ITS ---
Exam(s) XR SHOULDER LT COMPLETE 2+V EXAM: XR SHOULDER LT COMPLETE 2+V CLINICAL HISTORY: trauma. TECHNIQUE: 2D digital imaging was performed. Five views. COMPARISON: None FINDINGS: BONES: No acute fracture is present. No bony destructive lesion is seen. JOINTS: No dislocation present. Mild degenerative changes AC joint and glenohumeral joint. SOFT TISSUE: Normal. IMPRESSION: Mild degenerative changes. No acute abnormality. DATA REPOSITORY: RADIATION DOSE DELIVERED:
--- NOTE | 2023-05-24 20:06 | ED.GENADUL_ITS ---
Discharge Plan Disposition Patient Disposition: Home Condition: Stable Discharge Details Clinical Impression: Abrasion, Multiple contusions Primary Care Provider: Deacon Watters ED Provider: Davida Guillermo Home Meds and New Rx's Prescriptions: Continued naproxen 250 mg tablet 250 - 500 mg PO BID PRN (Reason: pain and inflammation) Qty: 30 0RF Rx Instructions: take with a meal fluconazole [Diflucan] 200 mg tablet 200 mg PO DAILY Qty: 5 0RF acetaminophen [Tylenol] 325 mg tablet 650 mg PO Q4H PRN sulfasalazine 500 mg tablet 0.5 gm PO BID albuterol sulfate [ProAir HFA] 90 mcg/actuation HFA aerosol inhaler 2 puff Inhalation Q6H PRN Qty: 1 4RF epinephrine [EpiPen] 0.3 mg/0.3 mL auto-injector 0.3 ml IM ONCE Qty: 1 0RF Rx Instructions: SEVERE ALLERGIC REACTION TO INSECT STING sumatriptan succinate [Imitrex] 50 mg tablet 50 mg PO ONCE PRN (Reason: migraine headache) Qty: 7 5RF diclofenac sodium 1 % gel 2 g topical QID Qty: 100 0RF Rx Instructions: apply to single elbow, wrist or hand; for hand includes palm/fingers/back of hand omeprazole 40 mg capsule,delayed release(DR/EC) 40 mg PO DAILY Qty: 90 3RF folic acid 1 mg tablet 1 mg PO DAILY Qty: 90 4RF glipizide 10 mg tablet 10 mg PO DAILY Qty: 90 4RF tamsulosin 0.4 mg capsule 0.8 mg PO HS Qty: 180 3RF Rx Instructions: Take 2 caps daily empagliflozin 10 mg tablet 10 mg PO DAILY Qty: 90 3RF insulin glargine [Basaglar KwikPen U-100 Insulin] 100 unit/mL (3 mL) insulin pen 70 unit subcut HS Qty: 63 3RF losartan 100 mg tablet 100 mg PO DAILY Qty: 90 3RF metformin 500 mg tablet 500 mg PO DAILY Qty: 90 3RF fluticasone propionate 16 GM spray,suspension 2 spr NS HS budesonide [Uceris] 2 mg/actuation Foam 1 appful OK .Q2D WEEKLY No Action propranolol [Inderal LA] 80 mg capsule,extended release 24hr 160 mg PO DAILY Qty: 180 3RF Rx Instructions: FOR MIGRAINE PROPHYLAXIS (DME) OneTouch Ultra Blue Test Strip Strip See Rx Instructions .ROUTE .MEDSUPPLY Qty: 100 4RF Rx Instructions: One Daily (DME) pen needle, diabetic [Pen Needle] 31 gauge x 5/16 needle 1 ea Miscellaneous DAILY Qty: 100 4RF Rx Instructions: BD ultrafine Discharge Instructions Instructions: Contusion in Adults (ED), Abrasion (ED) Additional Instructions: Can use ice to affected areas for the next 24 to 48 hours then can use heat or ice For pain can use acetaminophen and/or ibuprofen as directed take with food Wash wounds daily with warm soapy water rinse completely pat dry can apply Neosporin or antibiotic ointment and dry dressing to protect report sign of infection immediately Referrals: Deacon Watters 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 He is having left shoulder pain and left hand pain really does not want imaging but I do feel imaging of the shoulder and hand are reasonable this has been discussed with him. Wounds are cleansed by nursing his tetanus was up-to-date last tetanus being 2021 X-rays are reviewed and no acute fractures or dislocations noted Medical Records Medical records reviewed: Yes I reviewed the patient's medical records. Imaging Data Radiologic Study: Imaging: X-Ray Radiologist's impression: Exam(s) PROCEDURE INFORMATION: Exam: XR Left Shoulder Exam date and time: 05/24/2023 9:03 PM Age: 72 years old Clinical indication: Injury or trauma; Blunt trauma (contusions or hematomas); Shoulder; Left; Injury date: 05/24/23; Injury details: Fall. Pain TECHNIQUE: Imaging protocol: Radiologic exam of the left shoulder. Views: 2 or more views. COMPARISON: CR XR CHEST 2V PA LATERAL 09/16/2018 12:47 PM FINDINGS: Bones/joints:? Degenerative changes noted.? No acute fracture or dislocation Soft tissues: Normal. IMPRESSION: No acute findings. Dictated and Authenticated by: Juan Mckeon MD. Ordering:NERY Higuera MD <Jonathan Mcfadden MD - Last Filed: 07/20/23 09:03> Note: I did not evaluate this patient. I did not participate in the care of this patient. This medical record was inappropriately assigned to me. I notified [facility] and medical records and chart could not be unassigned. HPI <Davida Guillermo NP - Last Filed: 05/24/23 21:50> General Mode of arrival: ambulatory . Date/Time Provider Initiated Documentation: 05/24/23 19:46 . Limitations to Documentation: no limitations . Information obtained by: patient . HPI Narrative: This is a 72-year-old who was in his usual state of health who reports a mechanical fall on wet ground. He has superficial lacerations to his right forearm and left hand. He is complaining of left shoulder and hand pain. There was no head injury no C-spine tenderness no loss of consciousness Related Data Home Medications Medication Instructions Recorded Confirmed budesonide 2 mg/actuation rectal 1 appful OK .Q2D WEEKLY 10/18/18 05/24/23 foam (Uceris) fluticasone propionate 50 2 spr NS HS 10/18/18 05/24/23 mcg/actuation nasal spray,suspension acetaminophen 325 mg tablet 650 mg PO Q4H PRN 03/07/19 05/24/23 (Tylenol) sulfasalazine 500 mg tablet 0.5 gm PO BID 10/11/19 05/24/23 albuterol sulfate 90 mcg/actuation 2 puff inhalation Q6H PRN ##1 12/07/20 05/24/23 aerosol inhaler (ProAir HFA) epinephrine 0.3 mg/0.3 mL 0.3 ml IM ONCE #1 ea 05/01/21 05/24/23 injection, auto-injector (EpiPen) sumatriptan succinate 50 mg tablet 50 mg PO ONCE PRN migraine 01/13/22 05/24/23 (Imitrex) headache #7 tab-caps diclofenac sodium 1 % topical gel 2 g topical QID #100 grams 05/16/22 05/24/23 naproxen 250 mg tablet 250 - 500 mg PO BID PRN pain and 09/17/22 05/24/23 inflammation #30 tabs folic acid 1 mg tablet 1 mg PO DAILY #90 tab-caps 11/28/22 05/24/23 glipizide 10 mg tablet 10 mg PO DAILY #90 tab-caps 11/28/22 05/24/23 omeprazole 40 mg capsule,delayed 40 mg PO DAILY #90 caps 11/28/22 05/24/23 release tamsulosin 0.4 mg capsule 0.8 mg PO HS #180 caps 12/01/22 05/24/23 empagliflozin 10 mg tablet 10 mg PO DAILY #90 tabs 03/04/23 05/24/23 insulin glargine 100 unit/mL (3 70 unit (0.7 mL) subcut HS #63 mL 04/15/23 05/24/23 mL) subcutaneous pen (Basaglar KwikPen U-100 Insulin) losartan 100 mg tablet 100 mg PO DAILY #90 tabs 04/27/23 05/24/23 metformin 500 mg tablet 500 mg PO DAILY #90 tab-caps 04/27/23 05/24/23 fluconazole 200 mg tablet 200 mg PO DAILY yeast infection #5 05/12/23 05/24/23 (Diflucan) tabs propranolol 80 mg capsule,24 160 mg PO DAILY #180 tabs 06/01/23 hr,extended release (Inderal LA) blood sugar diagnostic #100 ea 06/04/23 pen needle, diabetic 31 gauge x #100 ea 06/04/23/ (Pen Needle) Previous Rx's Medication Instructions Recorded albuterol sulfate 90 mcg/actuation 2 puff inhalation Q6H PRN ##1 12/07/20 aerosol inhaler (ProAir HFA) epinephrine 0.3 mg/0.3 mL 0.3 ml IM ONCE #1 ea 05/01/21 injection, auto-injector (EpiPen) sumatriptan succinate 50 mg tablet 50 mg PO ONCE PRN migraine 01/13/22 (Imitrex) headache #7 tab-caps diclofenac sodium 1 % topical gel 2 g topical QID #100 grams 05/16/22 naproxen 250 mg tablet 250 - 500 mg PO BID PRN pain and 09/17/22 inflammation #30 tabs folic acid 1 mg tablet 1 mg PO DAILY #90 tab-caps 11/28/22 glipizide 10 mg tablet 10 mg PO DAILY #90 tab-caps 11/28/22 omeprazole 40 mg capsule,delayed 40 mg PO DAILY #90 caps 11/28/22 release tamsulosin 0.4 mg capsule 0.8 mg PO HS #180 caps 12/01/22 empagliflozin 10 mg tablet 10 mg PO DAILY #90 tabs 03/04/23 insulin glargine 100 unit/mL (3 70 unit (0.7 mL) subcut HS #63 mL 04/15/23 mL) subcutaneous pen (Basaglar KwikPen U-100 Insulin) losartan 100 mg tablet 100 mg PO DAILY #90 tabs 04/27/23 metformin 500 mg tablet 500 mg PO DAILY #90 tab-caps 04/27/23 fluconazole 200 mg tablet 200 mg PO DAILY yeast infection #5 05/12/23 (Diflucan) tabs propranolol 80 mg capsule,24 160 mg PO DAILY #180 tabs 06/01/23 hr,extended release (Inderal LA) blood sugar diagnostic #100 ea 06/04/23 pen needle, diabetic 31 gauge x #100 ea 06/04/2304/07 (Pen Needle) Allergies Allergy/AdvReac Type Severity Reaction Status Date / Time hornet venom Allergy Severe Anaphylaxis Verified 05/24/23 19:46 amitriptyline Allergy Verified 07/10/23 09:45 cephalexin [From Keflex] AdvReac Intermediate headaches Verified 05/24/23 19:46 finasteride [From Proscar] AdvReac Intermediate testicle Verified 05/24/23 19:46 pain Tetracyclines AdvReac Intermediate NAUSEA Verified 05/24/23 19:46 erythromycin base AdvReac Unknown NAUSEA Verified 05/24/23 19:46 General Stated Complaint: Laceration CELSO: 4 Review of Systems <Davida Guillermo NP - Last Filed: 05/24/23 21:50> All systems reviewed & are unremarkable except as noted in HPI and below PFSH <Davida Guillermo NP - Last Filed: 05/24/23 21:50> All Active Problems Asthma (Chronic) Diabetes mellitus (Chronic 03/10/13) Diabetic peripheral neuropathy associated with type 2 diabetes mellitus (Chronic 12/18/17) Gastroesophageal reflux disease (Chronic) Hearing loss (Chronic) Right lumbar radiculopathy (Chronic 12/06/15) Ulcerative colitis (Chronic) mild Inguinodynia, left (Acute) Prostatitis (Acute) Hydrocele (Acute) History of tobacco use (Acute) Family history of colon cancer (Acute) Diverticulosis of sigmoid colon (Acute) Colon polyp (Acute) Pain in left testicle (Acute) BPH loc w urin obs/LUTS (Acute) Microscopic hematuria (Acute) Left inguinal pain (Acute) Lumbar back pain with radiculopathy affecting left lower extremity (Acute) Hiatal hernia with GERD (Acute) Dysuria (Acute) Exertional dyspnea (Acute) Hyperlipidemia (Acute) Right shoulder pain (Acute) Traumatic tear of right rotator cuff (Acute 01/01/22) Skin lesion (Acute) Status post arthroscopy of right shoulder (Acute 09/05/22) s/p rotator cuff repair of supraspinatus, arthroscopic biceps tenodesis, extensive debridement and subacromial decompression Medical History (Updated 06/24/23 @ 00:19 by MARK NUNEZ) Abnormal colonoscopy 02/22/19 tubular adenoma ascending and transverse colon, sessile serrated adenoma @ 50cm, rectosigmoid colon moderately active chronic colitis/proctitis. mg Bursitis of right shoulder COPD (chronic obstructive pulmonary disease) DM2 (diabetes mellitus, type 2) Esophagitis Essential hypertension GERD (gastroesophageal reflux disease) Glaucoma surgery fixed Inguinal hernia of left side without obstruction or gangrene Skin cancer removal x2 weeks ago Skin cancer, basal cell (10/08/16) Subdural hemorrhage Age 17, and a tree fell and hit him age 47 Tendonitis of long head of biceps brachii of right shoulder Ulcerative colitis Surgical History [place]ole[place] [facility] [place] [facility] [place] History of cataract surgery History of esophagogastroduodenoscopy (EGD) (~06/28/21) History of herniorrhaphy (10/19/18) left indirect, dr perez History of open reduction and internal fixation (ORIF) procedure wrist and ankle Family History Mother Leukemia Father Neoplasm Grandfather Neoplasm STOMACH Grandmother Diabetes Colitis Brother Prostate cancer Nephew Prostate cancer Social History Smoking/Tobacco Use Status: Former Tobacco Use Quit Date: 11/23/91 Pack-years: 20 Second Hand Exposure: Yes Smoking risk assessment performed?: Yes Alcohol Intake: former Drug use: Never Substance use type: does not use Details: alcohol t-7 Caregiver/Support person: No Housing: house Number of Children: 2 Communication Needs: Hard of Hearing Do you need help understanding health information?: Rarely current occupation: Retired Pets and animals: No Sexually active: No Do you think of yourself as: straight/heterosexual Current gender identity: male What is your relationship status?: How often do you talk on the phone with friends or family?: three or more times per week How often do you get together with friends or relatives?: never How often do you attend oriental orthodox or presybeterian services?: decline to answer Do you belong to any clubs or organized social groups?: no Panel score (0-1 are the most socially isolated patients): 1 What type of physical activity do you participate in: walking Duration: > 90 minutes/day Frequency: daily Special harmeet needs: No Seatbelt use: always Helmet use: Yes Helmet use: always Drive intox or ride w/intox transport driver: No Do you feel safe at home: Yes Do you feel safe in your relationship?: Yes Victim of physical abuse: No Victim of emotional abuse: No Victim of sexual abuse: No Would you like helpful sources: No Additional Social history: lives alone Exam <Davida Guillermo NP - Last Filed: 05/24/23 21:50> Const General: cooperative, comfortable and no acute distress Nutritional Appearance: average body habitus Orientation: alert, awake and oriented x3 HENMT Head: normal to inspection, normocephalic and atraumatic Mouth: oral mucosae normal Neck Neck: normal visual inspection, full ROM and nontender Chest Chest: normal inspection of the chest Resp Effort & Inspection: normal respiratory effort Cardio Rate: regular rate Rhythm: regular rhythm GI Inspection: normal to inspection Palpation: soft and nontender Skin Rashes: no rashes Trauma: laceration (Left hand flap injury approximately 2 cm's to the palmar aspect at the base) and other (7 cm superficial right forearm approximated no bleeding) Neuro General: patient alert, patient awake, patient oriented x3 and no focal motor deficits Cognition: normal cognition Speech: speech normal Gait: normal gait Motor: muscle tone normal throughout Sensory Exam: no sensory deficits noted Course <KIARRA Go Last Filed: 05/24/23 21:50> Vital Signs Vital signs: Vital Signs Temperature 36.8 C 07/02/23 19:40 Pulse 63 05/24/23 19:40 Respiratory Rate 16 05/24/23 19:40 Blood Pressure 112/46 L 05/24/23 19:40 Pulse Oximetry 100 05/24/23 19:40 Temperature 36.8 C 05/24/23 19:40 Temperature Source Oral 05/24/23 19:40 Pulse 63 05/24/23 19:40 Respiratory Rate 16 05/24/23 19:40 Respiratory Effort Normal 05/24/23 19:44 Blood Pressure 112/46 L 05/24/23 19:40 Blood Pressure Position Sitting 05/24/23 19:40 Pulse Oximetry 100 05/24/23 19:40 Oxygen Delivery Method Room Air 05/24/23 19:40 Oxygen Flow Rate 0 05/24/23 19:40 Pain Level 6 05/24/23 19:40
--- NOTE | 2023-05-24 21:40 | DI.VRAD_ITS ---
PROCEDURE INFORMATION: Exam: XR Left Shoulder Exam date and time: 05/24/2023 9:03 PM Age: 72 years old Clinical indication: Injury or trauma; Blunt trauma (contusions or hematomas); Shoulder; Left; Injury date: 05/24/23; Injury details: Fall. Pain TECHNIQUE: Imaging protocol: Radiologic exam of the left shoulder. Views: 2 or more views. COMPARISON: CR XR CHEST 2V PA LATERAL 09/16/2018 12:47 PM FINDINGS: Bones/joints: Degenerative changes noted. No acute fracture or dislocation Soft tissues: Normal. IMPRESSION: No acute findings. Dictated and Authenticated by: Juan Mckeon MD. Ordering:NERY Higuera MD
--- NOTE | 2023-05-24 21:40 | DI.VRAD_ITS ---
PROCEDURE INFORMATION: Exam: XR Left Hand Exam date and time: 05/24/2023 9:11 PM Age: 72 years old Clinical indication: Injury or trauma; Blunt trauma (contusions or hematomas); Hand; Left; Injury date: 05/24/23; Injury details: Fall, pain TECHNIQUE: Imaging protocol: Radiologic exam of the left hand. Views: 3 or more views. COMPARISON: No relevant prior studies available. FINDINGS: Bones/joints: No acute fracture or dislocation Soft tissues: Normal. IMPRESSION: No acute findings. Dictated and Authenticated by: Juan Mckeon MD. Ordering:NERY Higuera MD
== END 2023-05-24 21:53 | disposition home or self-care (01) ==
PROVIDERS: Emergency Provider Nurse Practitioner Acute Care; PCP Nurse Practitioner Family
DX: S51.811A Laceration without foreign body of right forearm, initial encounter (principal); S61.412A Laceration without foreign body of left hand, initial encounter; M25.512 Pain in left shoulder; W19.XXXA Unspecified fall, initial encounter
CPT/HCPCS: 99284; 73030; 73130; 99283

== ENCOUNTER → 2023-06-29 14:07 | Outpatient (BNVA) | payer MEDICARE, SELFPAY | PROVIDERS: PCP Nurse Practitioner Family; Referring Provider Nurse Practitioner Family; Visit Provider Urology | DX: R10.32 Left lower quadrant pain (principal); N41.9 Inflammatory disease of prostate, unspecified; Z87.440 Personal history of urinary (tract) infections; E11.9 Type 2 diabetes mellitus without complications | CPT/HCPCS: 81003; 99214 ==

== ENCOUNTER → 2023-09-22 13:45 | Outpatient (BNVA) | payer MEDICARE, SELFPAY | PROVIDERS: PCP Nurse Practitioner Family; Referring Provider Nurse Practitioner Family; Visit Provider Urology | DX: R31.29 Other microscopic hematuria (principal); Z87.440 Personal history of urinary (tract) infections | CPT/HCPCS: 81003; 87088; 99213 ==

== ENCOUNTER 2023-09-22 14:19 | Outpatient (REF) | payer MEDICARE, SELFPAY | END 2023-09-22 14:20 | disposition home or self-care (01) | LOC: LBN 14:19 | PROVIDERS: PCP Nurse Practitioner Family; Visit Provider Urology | DX: N39.0 Urinary tract infection, site not specified (principal); R82.79 Other abnormal findings on microbiological examination of urine | CPT/HCPCS: 87077; 87086; 87186 ==

== ENCOUNTER 2023-09-28 12:26 | Outpatient (REF) | payer MEDICARE, SELFPAY | END 2023-09-28 12:27 | disposition home or self-care (01) | LOC: LBN 12:26 | PROVIDERS: PCP Nurse Practitioner Family; Visit Provider Nurse Practitioner Family | DX: E11.9 Type 2 diabetes mellitus without complications (principal) | CPT/HCPCS: 82043; 82570 ==

== ENCOUNTER → 2023-09-29 00:25 | Outpatient (CLI) | payer MEDICARE, SELFPAY ==
--- NOTE | 2023-09-29 09:16 | DI.RAD_ITS ---
Exam(s) XR CHEST 2V PA LATERAL EXAM: XR CHEST 2V PA LATERAL CLINICAL HISTORY: Chronic cough,r05.3. TECHNIQUE: 2D digital imaging was performed. COMPARISON: No exams were available for comparison FINDINGS: 2 views: Heart size is normal. The mediastinum is not widened. Lungs are clear. No infiltrates nor pleural effusions. IMPRESSION: No acute pulmonary findings. DATA REPOSITORY: RADIATION DOSE DELIVERED:
== END ==
PROVIDERS: PCP Nurse Practitioner Family; Visit Provider Nurse Practitioner Family
DX: R05.3 Chronic cough (principal)
CPT/HCPCS: 71046

== ENCOUNTER 2023-10-13 03:54 | Outpatient (CLI) | payer MEDICARE, SELFPAY ==
[2023-10-13] MEDS: Levalbuterol HFA 15 GM INH 4 PUFF IH (09:35)
[2023-10-13] MEDS: Inhaler, Assist Device 1 EACH MC (09:35)
--- NOTE | 2023-10-13 15:52 | W.PFT ---
Date of service: 10/13/23 Time of Service: 08:00 Pulmonary Function Test Result Indications: Cough Interpretation Spirometry: There is no airflow limitation. There is no bronchodilator response. There restrictive appearing spirometry. Lung Volumes: There is hyperinflation and air trapping. Diffusion Capacity: Normal diffusion Airway Pressure: Increased airways resistance Impression No airflow obstruction but air trapping and increased airways resistance. This could represent asthma in the correct clinical setting. The restrictive spirometry is likely pseudo-restriction from obesity. Clinical Correlation therefore is recommended.
== END 2023-10-13 03:55 | disposition home or self-care (01) ==
LOC: RT 03:54
PROVIDERS: PCP Nurse Practitioner Family; Visit Provider Student in an Organized Health Care Education/Training Program
DX: R05.3 Chronic cough (principal)
CPT/HCPCS: 94060; 94726; 94729

== ENCOUNTER → 2023-10-27 00:31 | Outpatient (CLI) | payer MEDICARE, SELFPAY ==
--- NOTE | 2023-10-27 07:00 | DI.MRI_ITS ---
Exam(s) MR CERVICAL SPINE WO EXAM: MR CERVICAL SPINE WO CLINICAL HISTORY: Worsening neck pain,M54.2 TECHNIQUE: Multiplanar multisequence MRI of the cervical spine was performed without intravenous con trast. COMPARISON: No exams were available for comparison FINDINGS: BONES: Vertebral body heights are maintained. Alignment is normal. Bone marrow signal intensity is wi thin normal limits. CERVICAL CORD: Craniovertebral junction is unremarkable. The cervical cord is normal size and signal intensity. SOFT TISSUES: Unremarkable. C2-3: No disc herniation or bulge is identified. Mild rightneural foraminal narrowing secondary to f acet encroachment.. No significant central canal stenosis. C3-4: No disc herniation or bulge is identified. Mild right neural foraminal narrowing secondary to f acet encroachment.. No significant central canal stenosis. C4-5: No disc herniation or bulge is identified. Facet joint degenerative changes cause left neural f oraminal narrowing.Neural foraminal narrowing. No significant central canal stenosis. C5-6: Severe loss of disc height. A small circumferentially projecting osteophytes.Bilateral neural foraminal narrowing. Mild central canal stenosis with effacement of the anterior CSF space. CSF sarah ins present around the cord.. C6-7: No disc herniation or bulge is identified. No evidence of neural foraminal narrowing. No signif icant central canal stenosis. C7-T1: No disc herniation or bulge is identified. No evidence of neural foraminal narrowing. No signi ficant central canal stenosis. IMPRESSION: Degenerative disc changes at C6-7 causing mild central canal stenosis and bilateral neural foraminal narrowing. Neural foraminal narrowing secondary to facet encroachment at the more superior levels. DATA REPOSITORY:
== END ==
PROVIDERS: PCP Nurse Practitioner Family; Visit Provider Nurse Practitioner Family
DX: G89.29 Other chronic pain (principal); M54.2 Cervicalgia; M43.02 Spondylolysis, cervical region
CPT/HCPCS: 72141

== ENCOUNTER 2023-10-28 10:01 | Outpatient (REF) | payer MEDICARE, SELFPAY ==
[2023-10-28 12:03] LABS: Bilirubin Negative (Negative); Blood Trace-intact (Negative); Clarity Sl Cloudy (Clear); Glucose 100 mg/dL (Negative); Ketones Negative (Negative); Leukocyte Esterase Large (Negative); Nitrite Positive (Negative); Specific Gravity 1.025 (1.005-1.025); Urobilinogen 0.2 mg/dL (Up to 0.2); pH 5.5 (5-8)
[2023-10-28 12:08] LABS: Bacteria Many HPF (Negative); C & S Indicated? C&S Done As Ordered; Casts Negative LPF (Negative); Crystals Negative HPF (Negative); Epithelial Cells Few HPF (Negative); Mucus Trace (Negative); WBC 20-50 HPF (0-5)
== END 2023-10-28 10:02 | disposition home or self-care (01) ==
LOC: LBN 10:01
PROVIDERS: PCP Nurse Practitioner Family; Visit Provider Urology
DX: N41.9 Inflammatory disease of prostate, unspecified (principal); R31.29 Other microscopic hematuria; R31.9 Hematuria, unspecified
CPT/HCPCS: 87077; 81003; 81015; 87086; 87186

== ENCOUNTER 2024-06-03 15:42 | Outpatient (REF) | payer MEDICARE, SELFPAY | END 2024-06-03 15:43 | disposition home or self-care (01) | LOC: LBN 15:42 | PROVIDERS: PCP Nurse Practitioner Family; Visit Provider Physician Assistant | DX: J02.9 Acute pharyngitis, unspecified (principal) | CPT/HCPCS: 87070 ==

== ENCOUNTER 2024-06-29 13:55 | Inpatient (IN) | payer MEDICARE, SELFPAY ==
[2024-06-29] VITALS (81 sets, daily range): BP systolic 123–160; BP diastolic 44–117; PULSE 58–78; RESP 12–39; TEMP 36.8; O2SAT 96
--- NOTE | 2024-06-29 13:45 | RT.EKG_ITS ---
APPROVED REPORT Exam: Resting ECG Reason for Exam: sob Patient Location: E HR:74 bpm ECG Measurements Heart Rate 74 AXIS AR 180 P 60 QRSd 146 QRS 75 QT 414 T 0 QTc 456 Conclusion Sinus rhythm...normal P axis, V-rate 60- 99 Ventricular premature complex...V complex w/ short R-R interval Right bundle branch block...QRSd>120, terminal axis(90,270) No Stemi. I have reviewed and interpreted ECG and agree with software generated interpretation.
--- NOTE | 2024-06-29 14:00 | DI.RAD_ITS ---
Exam(s) XR CHEST 2V PA LATERAL EXAM: XR CHEST 2V PA LATERAL CLINICAL HISTORY: 2 weeks anterior chest pain to jaw TECHNIQUE: 2D digital imaging was performed. Two views. COMPARISON: CR XR CHEST 2V PA LATERAL from 09/29/2023 FINDINGS: HEART: Normal size. Aorta: Not dilated. PULMONARY VASCULATURE: Normal. MEDIASTINUM: Unremarkable. LUNGS: No infiltrate or pulmonary edema. Minimal basilar scarring. PLEURAL SPACE: No pleural effusion or pneumothorax. BONE:Unremarkable for age. SOFT TISSUES: Unremarkable. IMPRESSION: No acute abnormality. DATA REPOSITORY: RADIATION DOSE DELIVERED:
--- NOTE | 2024-06-29 14:10 | W.ED.GENAD ---
Discharge Plan Disposition Patient Disposition: Admit to [facility] Condition: Stable Discharge Details Chief Complaint: Chest Pain Clinical Impression: Non-ST elevation MN (NSTEMI) Primary Care Provider: Deacon Watters ED Provider: Donnell Zhu Home Meds and New Rx's Prescriptions: No Action naproxen 250 mg tablet 250 - 500 mg PO BID PRN (Reason: pain and inflammation) Qty: 30 0RF Rx Instructions: take with a meal acetaminophen [Tylenol] 325 mg tablet 650 mg PO Q4H PRN sulfasalazine 500 mg tablet 0.5 gm PO BID propranolol 160 mg capsule,extended release 24 hr 160 mg PO DAILY Qty: 90 3RF Rx Instructions: FOR MIGRAINE PROPHYLAXIS dicyclomine 20 mg tablet 20 mg PO Patient Comments: TAKE ONE TABLET BY MOUTH EVERY 8 HOURS NEEDED epinephrine [EpiPen] 0.3 mg/0.3 mL auto-injector 0.3 ml IM ONCE Qty: 1 0RF Rx Instructions: SEVERE ALLERGIC REACTION TO INSECT STING sumatriptan succinate [Imitrex] 50 mg tablet 50 mg PO ONCE PRN (Reason: migraine headache) Qty: 7 5RF (DME) OneTouch Ultra Blue Test Strip Strip See Rx Instructions .ROUTE .MEDSUPPLY Qty: 100 4RF Rx Instructions: One Daily (DME) pen needle, diabetic [Pen Needle] 31 gauge x 5/16 needle 1 ea Miscellaneous DAILY Qty: 100 4RF Rx Instructions: BD ultrafine metformin 500 mg tablet 500 mg PO DAILY Qty: 90 3RF glipizide 10 mg tablet 10 mg PO DAILY Qty: 90 4RF omeprazole 40 mg capsule,delayed release(DR/EC) 40 mg PO DAILY Qty: 90 3RF folic acid 1 mg tablet 1 mg PO DAILY Qty: 90 4RF insulin glargine [Basaglar KwikPen U-100 Insulin] 100 unit/mL (3 mL) insulin pen 70 unit subcut HS Qty: 63 3RF losartan 100 mg tablet 100 mg PO DAILY Qty: 90 3RF triamcinolone acetonide 0.1 % cream 1 applic topical BID Qty: 80 1RF albuterol sulfate 90 mcg/actuation HFA aerosol inhaler 2 puff inhalation Q6H PRN (Reason: shortness of breath or wheezing) Qty: 8.5 2RF tamsulosin 0.4 mg capsule 0.4 mg PO HS Rx Instructions: Take 2 caps daily HPI General Date/Time Provider Initiated Documentation: 06/29/24 14:04. HPI Narrative: 74-year-old male history of diabetes presents with anterior chest pain nonexertional over the last 2 weeks rating to his jaw, consistent in nature. Denies nausea vomiting or diaphoresis. Related Data Home Medications ?Medication ?Instructions ?Recorded ?Confirmed acetaminophen 325 mg tablet 650 mg PO Q4H PRN 03/07/19 06/29/24 (Tylenol) sulfasalazine 500 mg tablet 0.5 gm PO BID 10/11/19 06/29/24 epinephrine 0.3 mg/0.3 mL 0.3 ml IM ONCE #1 ea 05/01/21 06/29/24 injection, auto-injector (EpiPen) sumatriptan succinate 50 mg tablet 50 mg PO ONCE PRN migraine 01/13/22 06/29/24 (Imitrex) headache #7 tab-caps naproxen 250 mg tablet 250 - 500 mg (1 - 2 x 250 mg) PO 09/17/22 06/29/24 BID PRN pain and inflammation #30 tabs blood sugar diagnostic #100 ea 06/04/23 06/03/24 pen needle, diabetic 31 gauge x #100 ea 06/04/23 06/03/2404/07 (Pen Needle) propranolol 160 mg capsule,24 160 mg PO DAILY #90 caps 09/28/23 06/29/24 hr,extended release dicyclomine 20 mg tablet 20 mg PO 12/28/23 06/03/24 metformin 500 mg tablet 500 mg PO DAILY #90 tab-caps 01/06/24 06/29/24 folic acid 1 mg tablet 1 mg PO DAILY #90 tab-caps 02/10/24 06/29/24 glipizide 10 mg tablet 10 mg PO DAILY #90 tab-caps 02/10/24 06/29/24 omeprazole 40 mg capsule,delayed 40 mg PO DAILY #90 caps 02/10/24 06/29/24 release insulin glargine 100 unit/mL (3 70 unit (0.7 mL) subcut HS #63 mL 03/02/24 06/03/24 mL) subcutaneous pen (Khadraaglar Rina U-100 Insulin) losartan 100 mg tablet 100 mg PO DAILY #90 tabs 03/02/24 06/29/24 albuterol sulfate 90 mcg/actuation 2 puff inhalation Q6H PRN 04/27/24 06/29/24 aerosol inhaler shortness of breath or wheezing #8.5 grams triamcinolone acetonide 0.1 % 1 applic topical BID #80 grams 04/27/24 06/29/24 topical cream tamsulosin 0.4 mg capsule 0.4 mg PO HS 06/29/24 06/29/24 Previous Rx's ?Medication ?Instructions ?Recorded epinephrine 0.3 mg/0.3 mL 0.3 ml IM ONCE #1 ea 05/01/21 injection, auto-injector (EpiPen) sumatriptan succinate 50 mg tablet 50 mg PO ONCE PRN migraine 01/13/22 (Imitrex) headache #7 tab-caps naproxen 250 mg tablet 250 - 500 mg (1 - 2 x 250 mg) PO 09/17/22 BID PRN pain and inflammation #30 tabs blood sugar diagnostic #100 ea 06/04/23 pen needle, diabetic 31 gauge x #100 ea 06/04/23/ (Pen Needle) propranolol 160 mg capsule,24 160 mg PO DAILY #90 caps 09/28/23 hr,extended release metformin 500 mg tablet 500 mg PO DAILY #90 tab-caps 01/06/24 folic acid 1 mg tablet 1 mg PO DAILY #90 tab-caps 02/10/24 glipizide 10 mg tablet 10 mg PO DAILY #90 tab-caps 02/10/24 omeprazole 40 mg capsule,delayed 40 mg PO DAILY #90 caps 02/10/24 release insulin glargine 100 unit/mL (3 70 unit (0.7 mL) subcut HS #63 mL 03/02/24 mL) subcutaneous pen (Basaglar KwikPen U-100 Insulin) losartan 100 mg tablet 100 mg PO DAILY #90 tabs 03/02/24 albuterol sulfate 90 mcg/actuation 2 puff inhalation Q6H PRN 04/27/24 aerosol inhaler shortness of breath or wheezing #8.5 grams triamcinolone acetonide 0.1 % 1 applic topical BID #80 grams 04/27/24 topical cream Allergies Allergy/AdvReac Type Severity Reaction Status Date / Time hornet venom Allergy Severe Anaphylaxis Verified 06/29/24 14:08 amitriptyline Allergy Hives Verified 06/29/24 14:08 cephalexin (From Keflex) AdvReac Intermediate headaches Verified 06/29/24 14:08 empagliflozin (From AdvReac Intermediate Yeast Verified 06/29/24 14:08 Jardiance) infection finasteride (From Proscar) AdvReac Intermediate testicle Verified 06/29/24 14:08 pain Tetracyclines AdvReac Intermediate NAUSEA Verified 06/29/24 14:08 erythromycin base AdvReac Unknown NAUSEA Verified 06/29/24 14:08 General Stated Complaint: Chest Pain CELSO: 2 Exam Narrative Exam Narrative: Rest comfortably no acute distress Speaking full sentences tolerating secretions Clear bilaterally no rales rhonchi or wheezes Normal heart sounds no murmurs rubs or gallops No peripheral edema Moving all extremities without deficit Course Vital Signs Vital signs: Vital Signs Temperature 36.8 C 06/29/24 13:59 Pulse 76 06/29/24 13:59 Respiratory Rate 18 06/29/24 13:59 Blood Pressure 156/88 H 06/29/24 13:59 Pulse Oximetry 96 06/29/24 13:59 Temperature 36.8 C 06/29/24 13:59 Temperature Source Skin 06/29/24 13:59 Pulse 76 06/29/24 13:59 Respiratory Rate 18 06/29/24 13:59 Blood Pressure 156/88 H 06/29/24 13:59 Blood Pressure Position Sitting 06/29/24 13:59 Pulse Oximetry 96 06/29/24 13:59 Oxygen Delivery Method Room Air 06/29/24 13:59 Oxygen Flow Rate 0 06/29/24 13:59 Pain Level 6 06/29/24 13:59 Medical Decision Making 74-year-old male history of diabetes, presents with 2 weeks of nonexertional anterior chest pain rating to jaw, denies shortness of breath nausea vomiting or diaphoresis denies presyncope. Denies history of coronary disease or thromboembolic disease. No leg pain or swelling. No nausea or vomiting. Abdomen soft nontender nondistended. Hemodynamically stable. Consider musculoskeletal chest pain versus pleurisy lower special for pneumonia or PE most also consider ACS lower suspicion for aortic pathology we will obtain screening labs chest x-ray EKG patient declining aspirin as he was told not to take aspirin. EKG sinus rhythm with premature ventricular complex poor baseline consider RBBB 15 05 patient was comfortably no acute distress hemodynamically stable. Evidence of NSTEMI with troponin greater than 4000 and elevated BNP repeat EKG showing frequent PVCs as well as ST segment depressions and T wave inversions V1 V2 V3 patient has prior RBBB. Have convince patient to allow us to initiate aspirin, will also initiate heparin high-dose statin Plavix and replete magnesium. Will discuss case with [facility] cardiology team 17: 47 still with some intermittent anterior chest pain, have ordered nitroglycerin sublingual. Discussed case with [facility] cardiology who is listing until Thursday and offering to list patient however will contact [facility] cardiology team to see if they have any availability for more urgent cardiac catheterization. 19: 55 discussed case with [facility] cardiology team Dr. Hill who has accepted patient for listing next available bed per transfer center this could take 24 to 48 hours. Patient will be admitted at [facility] in the meantime. If patient accepted at another facility transfer centers would like to be made aware so that they can remove him from the list. Patient hemodynamic stable chest pain-free resting comfortably currently Quality:SDOH Health Related Social Needs: No Data to Display PFSH All Active Problems Non-ST elevation MN (NSTEMI) (Acute) Chronic neck pain (Acute) Chronic cough (Acute) Asthma (Chronic) Diabetes mellitus (Chronic 03/10/13) Diabetic peripheral neuropathy associated with type 2 diabetes mellitus (Chronic 12/18/17) Gastroesophageal reflux disease (Chronic) Hearing loss (Chronic) Right lumbar radiculopathy (Chronic 12/06/15) Ulcerative colitis (Chronic) mild Inguinodynia, left (Acute) Prostatitis (Acute) Hydrocele (Acute) History of tobacco use (Acute) Family history of colon cancer (Acute) Diverticulosis of sigmoid colon (Acute) Colon polyp (Acute) Pain in left testicle (Acute) BPH loc w urin obs/LUTS (Acute) Microscopic hematuria (Acute) Left inguinal pain (Acute) Lumbar back pain with radiculopathy affecting left lower extremity (Acute) Hiatal hernia with GERD (Acute) Dysuria (Acute) Exertional dyspnea (Acute) Hyperlipidemia (Acute) Right shoulder pain (Acute) Traumatic tear of right rotator cuff (Acute 01/01/22) Skin lesion (Acute) Status post arthroscopy of right shoulder (Acute 09/05/22) s/p rotator cuff repair of supraspinatus, arthroscopic biceps tenodesis, extensive debridement and subacromial decompression Medical History (Updated 06/29/24 @ 19:57 by Donnell Zhu MD) Skin cancer removal x2 weeks ago Glaucoma surgery fixed Tendonitis of long head of biceps brachii of right shoulder Bursitis of right shoulder Esophagitis Subdural hemorrhage Age 17, and a tree fell and hit him age 47 Abnormal colonoscopy 02/22/19 tubular adenoma ascending and transverse colon, sessile serrated adenoma @ 50cm, rectosigmoid colon moderately active chronic colitis/proctitis. mg Inguinal hernia of left side without obstruction or gangrene COPD (chronic obstructive pulmonary disease) Essential hypertension GERD (gastroesophageal reflux disease) Ulcerative colitis DM2 (diabetes mellitus, type 2) Skin cancer, basal cell (10/08/16) Surgical History History of cataract surgery History of esophagogastroduodenoscopy (EGD) (~06/28/21) History of herniorrhaphy (10/19/18) left indirect, dr perez History of appendectomy History of open reduction and internal fixation (ORIF) procedure wrist and ankle Colonoscopy - [facility] 07/13/14; [facility] Cholecystectomy Family History Mother Leukemia Father Neoplasm Grandfather Neoplasm STOMACH Grandmother Diabetes Colitis Brother Prostate cancer Nephew Prostate cancer Social History Smoking/Tobacco Use Status: Former Tobacco Use Quit Date: 11/23/91 Pack-years: 20 Second Hand Exposure: Yes Smoking risk assessment performed?: Yes Alcohol Intake: former Drug use: Never Substance use type: does not use Details: alcohol t-7 Caregiver/Support person: No Housing: house Number of Children: 2 Communication Needs: Hard of Hearing Do you need help understanding health information?: Rarely current occupation: Retired Pets and animals: No Sexually active: No Do you think of yourself as: straight/heterosexual Current gender identity: male What is your relationship status?: How often do you talk on the phone with friends or family?: three or more times per week How often do you get together with friends or relatives?: never How often do you attend confucianist or worship services?: decline to answer Do you belong to any clubs or organized social groups?: no Panel score (0-1 are the most socially isolated patients): 1 What type of physical activity do you participate in: walking Duration: > 90 minutes/day Frequency: daily Special harmeet needs: No Seatbelt use: always Helmet use: Yes Helmet use: always Drive intox or ride w/intox automation driver: No Do you feel safe at home: Yes Do you feel safe in your relationship?: Yes Victim of physical abuse: No Victim of emotional abuse: No Victim of sexual abuse: No Would you like helpful sources: No Additional Social history: lives alone
[2024-06-29 14:32] LABS: Abs Immature Grans 0.03 10^3/uL (0.0-0.06); Absolute Basophil Count 0.03 10^3/uL (0.0-0.2); Absolute Eosinophil Count 0.14 10^3/uL (0.0-0.7); Absolute Lymphocyte Count 1.15 10^3/uL (1.2-3.4); Absolute Monocyte Count 0.52 10^3/uL (0.1-0.8); Absolute Neutrophil Count 4.97 10^3/uL (1.2-6.7); Basophils % 0.4 %; HCT 37.8 % (40.0-50.0); HGB 12.7 g/dL (13.5-17.5); Immature Grans % 0.4 %; Lymphocytes % 16.8 %; MCH 33.4 pg (27.0-33.0); MCHC 33.6 % (32.0-36.0); MCV 100 fL (80-95); MPV 11.3 fL (8.0-11.0); Monocytes % 7.6 %; Neutrophils % 72.8 %; Platelet Count 171 10^3/uL (130-400); RDW 12.7 % (11.8-14.1); RDW-SD 46.4 fL; WBC 6.84 10^3/uL (4.4-10.8)
[2024-06-29 14:47] LABS: PTT Activated 20.3 sec (23.6-32.8); Prothrombin Time 10.3 sec (9.1-11.1)
[2024-06-29 15:07] LABS: ALT 30 U/L (16-63); AST 72 U/L (15-37); Albumin 3.7 g/dL (3.4-5.0); Alkaline Phosphatase 65 U/L (46-116); Anion Gap 8.9 mmol/L (3-11); BUN 12 mg/dL (7-18); Bilirubin, Total 0.68 mg/dL (0.2-1.0); CO2 26.1 mmol/L (21.0-32.0); CREATININE 1.1 mg/dL (0.70-1.30); Calcium 9.4 mg/dL (8.5-10.1); Chloride 102 mmol/L (98-107); Estimated GFR 69.57 (mL/min/1.73m2); Glucose 200 mg/dL (74-106); Lipase 26 U/L (16-77); Magnesium 1.6 mg/dL (1.8-2.4); NT-proBNP 2040 pg/mL (<300); Potassium 5.7 mmol/L (3.5-5.1); Sodium 137 mmol/L (136-145); Total Protein 8.3 g/dL (6.4-8.2)
[2024-06-29 15:22] LABS: Troponin I 4143 ng/L (< or =60)
--- NOTE | 2024-06-29 15:30 | RT.EKG_ITS ---
APPROVED REPORT Exam: Resting ECG Reason for Exam: nstemi Patient Location: E HR:71 bpm ECG Measurements Heart Rate 71 AXIS VA 182 P 45 QRSd 145 QRS 59 QT 436 T 16 QTc 465 Conclusion Sinus rhythm...normal P axis, V-rate 60- 99 Multiple ventricular premature complexes...V complexes w/ short R-R intervls Right bundle branch block...QRSd>120, terminal axis(90,270) sinus, normal axis, RBBB, PVCs, st depressions anterior
[2024-06-29] MEDS: Aspirin 81 MG CHEW 324 MG CH (15:55)
[2024-06-29] MEDS: Clopidogrel 300 MG TAB PO (15:59)
--- OUTSIDE RECORDS SUMMARY | 2024-06-29 16:01 | XMS_ITS | Referral Summary ---
Author Organization [facility] Address [address] [place] [address] Care Team Providers Care Consulting Software Engineer Name Role Phone Maximilian Fall MD Primary Care Provider [phone] Social History Tobacco Use Types Packs/Day Years Used Date Smoking Tobacco: Never Assessed Interpersonal Safety Answer Date Record ed Physically Hurt Never 06/24/2020 Verbally Threaten Not on file 06/24/2020 Sex and Gender Information Value Date Recorded Sex Assigned at Not on file Gender Identity Not on file Sexual Orientation Not on file Plan of Treatment Not on file Care Teams Consulting Software Engineer Relationship Specialty Start Date End Date Maximilian Fall MD PCP - General 03/18/16
--- OUTSIDE RECORDS SUMMARY | 2024-06-29 16:01 | XMS_ITS | Clinical Summary ---
Author Organization [facility] Address [address] [place] [address] Care Team Providers Care Sort Operations Supervisor Name Role Phone Maximilian Fall MD Primary Care Provider [phone] Social History Tobacco Use Types Packs/Day Years Used Date Smoking Tobacco: Never Assessed Interpersonal Safety Answer Date Record ed Physically Hurt Never 06/24/2020 Verbally Threaten Not on file 06/24/2020 Sex and Gender Information Value Date Recorded Sex Assigned at Not on file Gender Identity Not on file Sexual Orientation Not on file Plan of Treatment Health Maintenance Due Date Last Done Comments Hepatitis C Screen 1950 RSV Immunization ( o r 60+ Years) (1 - 1-dose 60+ series) 2008 Fall Risk Screening 2013 COVID-19 Vaccine ( season) 2023 Care Teams Sort Operations Supervisor Relationship Specialty Start Date End Date Maximilian Fall MD PCP - General 03/18/16
--- OUTSIDE RECORDS SUMMARY | 2024-06-29 16:01 | XMS_ITS | Encounter Summary ---
Author Organization [facility] Address [address] [place] [address] Care Team Providers Care Big Data Analytics Lead Name Role Phone Maximilian Fall MD Primary Care Provider [phone] Encounter Details Date Type Department Care Team (Late st Contact Info) Description 03/10/2023 Lab Requisition [facility] Pathology & Laboratory Medicine - [address] [address] Rodrick Florentino MD [address] [place] [phone] Other microscopic hematuria Social History Tobacco Use Types Packs/Day Years Used Date Smoking Tobacco: Never Assessed Interpersonal Safety Answer Date Record ed Physically Hurt Never 06/24/2020 Verbally Threaten Not on file 06/24/2020 Sex and Gender Information Value Date Recorded Sex Assigned at Not on file Gender Identity Not on file Sexual Orientation Not on file documented as of this encounter Plan of Treatment Not on file documented as of this encounter Procedures Procedure Name Priority Date/Time Associated Diagnosis Comments NON INSTRUMENT TECHNOLOGIST/FNA CYTOLOGY Today 03/09/2023 10:55 EDT Other microscopic hematuria documented in this encounter Results * NON INSTRUMENT TECHNOLOGIST/FNA CYTOLOGY (03/09/2023 10:55 EDT) Note to Patient The following pathology results have been interpreted by your pathologist and may be available to you before your health provider has had the opportunity to review them. Please allow time for your provider to receive these results and explore management options, if applicable. 03/12/2023 7:50 [facility] Final Diagnosis URINE, CATHETERIZED, CYTOLOGIC EVALUATION: - Negative for high grade urothelial carcinoma. - Reactive urothelial cells, abundant acute inflammatory cells and lymphocytes present. 03/12/2023 7:50 [facility] Attestation By the signature below, the attending physician certifies that they have personally conducted a gross and/or microscopic examination of the described specimens and rendered or confirmed the above diagnosis. 03/12/2023 7:50 [facility] at 0750 Clinical History Hematuria; R31.29 03/12/2023 7:50 [facility] Gross Description A. 160cc's of clear pale pink fluid (Cytolyt added) were received and processed by selective cellular enhancement technique. 03/12/2023 7:50 [facility] Performing Lab [facility] 03/12/2023 7:50 [facility] Scanned Images 03/12/2023 7:50 [facility] Urine URINE SPECIMEN COLLECTION, CATHETERIZED / Unknown 03/09/2023 10:55 EDT 03/10/2023 6:16 EDT Rodrick Florentino MD PATHOLOGY ORDERAB LES Performing Organization Address City/State/[facility] Co de Phone Number [facility] [address] [place] [address] documented in this encounter Visit Diagnoses Diagnosis Other microscopic hematuria documented in this encounter Care Teams Big Data Analytics Lead Relationship Specialty Start Date End Date Maximilian Fall MD PCP - General 03/18/16 documented as of this encounter
--- OUTSIDE RECORDS SUMMARY | 2024-06-29 16:01 | XMS_ITS | Continuity of Care Document ---
Author Organization [facility] Address [address] [place] [address] Care Team Providers Care Shingle Inspector Name Role Phone VIRAJ KRYSFREDI Primary Care Physicia n Encounter [facility] NBR [id number] Date(s): 06/17/24 - 06/17/24 [facility] [address] [place], [place] [address] Encounter Diagnosis Ptosis of eyelid(Discharge Diagnosis) - 06/17/24 Discharge Disposition: Home or Self Care Attending Physician: Jerald Carrillo DO Allergies, Adverse Reactions, Alerts Substance Reaction Severity Status tetracycline Severe Active erythromycin Unknown Active Assessment and Plan Extracted from: Title:ENT Office Visit Note Author:Jerald atkinson DO Date:06/17/24 1.??Ptosis of eyelid??[address] Shipley in [facility]. Patient was understanding and agreeable, we would proceed with referral. Patient understands that should he not hear from them to schedule within the next 2 weeks he should call the office to check on referral. Physician Outpatient Note * Felicia Lui: MODIFY, MODIFY, MODIFY, MODIFY, MODIFY Jerald Carrillo, DO: PERFORM, MODIFY Jerald Carrillo, DO: MODIFY Event Display: Office Clinic Note Physician Authored Date: [id number] NAYA BRAN :1950 Age:73 years Sex:Male Visit Date:06/17/2024 Chief Complaint bilateral dermatochalasis History of Present Illness New patient referred to clinic for severe bilateral dermatochalasis. Patient reports that he has totape up his eyelids when driving, as his eyelid drooping impedes his vision.??Patient notes that the left eyelid is the most bothersome to him. Patient notes that it has been bothering him about 6 months to a year. He has seen his eye doctor. He does not recall if he did a 64 point study or not. Henotes that it bothers him most when he is driving. Review of Systems Fatigue?? Negative.?? Fever?? Negative.?? Weight Loss?? Negative.?? Snoring?? Negative.?? Hoarseness?? Negative.?? Glaucoma?? Negative.?? Double Vision?? Negative.?? Other eye problems?? Negative.?? Loss of taste?? Negative.?? Loss of smell?? Negative.?? Sinus trouble?? Negative.?? Difficulty swallowing?? Negative.?? High blood pressure?? Negative.?? Heart failure?? Negative.?? Chest pain/Angina?? Negative.?? Heart Attack?? Negative.?? Ankle/Foot swelling?? Negative.?? Shortness of breath?? Negative.?? High cholesterol?? Negative.?? Cough?? Negative.?? Diabetes?? Negative.?? Ulcer?? Negative.?? Blood in Stool ?? Negative.?? Colitis?? Negative.?? Prostate Problems?? Negative.?? Kidney Stones? ? Negative.?? Hepatitis?? Negative.?? Liver trouble?? Negative.?? Gall bladder problems?? Negative.?? Kidney infection?? Negative.?? Blood in urine?? Negative.?? Bladder infection?? Negative.?? Arthritis?? Negative.?? Fibromyalgia?? Negative.?? Bone disease?? Negative.?? Joint disease?? Negative.??Back problems?? Negative.?? Breast (lump/tumor)?? Negative.?? Rashes?? Negative.?? Eczema?? Negative.?? Headaches?? Negative.?? Meningitis?? Negative.?? Thyroid Problems?? Negative.?? Pituitary Problems?? Negative.?? Bleeding Disorder?? Negative.?? Anemia?? Negative.?? Lymphoma?? Negative.?? Venereal Disease?? Negative.?? AIDS/HIV?? Negative.?? Cancer?? Negative.?? Blood transfusion?? Negative.??Seizures?? Negative.?? Loss of consciousness?? Negative.?? Head Injury/concussion?? Negative.?? Multiple Sclerosis?? Negative.?? Nervous disorder?? Negative.?? Anxiety?? Negative.?? Depression?? Negative.?? Frequent infection?? Negative.?? Environmental allergies?? Negative.?? Hay Fever?? Negative.?? Reflux?? Negative.?? Sleep apnea?? Negative.?? Physical Exam GENERAL APPEARANCE:??The patient is awake, alert, and oriented and in no acute distress, Appears nutritionally sound, Healthy in appearance, Voice is strong, with no stridor or stertor, Handling secretions without difficulty.?PSYCH:??affect normal, good eye contact, oriented to person, oriented to place, oriented to time.?NEURO:??CN's II-XII grossly intact, Gait is normal, The patient has endpoint nystagmus only.?HEENT:??The patient is normocephalic with a normal facies with cranial nerves 2 through 12 bilaterally equal and intact. Pupils are equal and reactive to light with extraocular movements bilaterally equal and intact. There is no proptosis or enophthalmos. ??Bilateral levator muscular ptosis ?NECK:??There is no palpable lymphadenopathy.?HEART:??regular rate and rhythm.?LUNGS:??clear to auscultation bilaterally, no wheezes/rhonchi/rales.?SKIN:??normal across the head and neck.?MUSCULOSKELETAL:??normal gait and station.?? Medical Decision Making: The patient clearly has muscular levator??dehiscence and ptosis of the eyelid bilaterally. ??I do not do these muscular repair locally.?? We do other??eyelid reconstructive surgeries,??his primary issue is not dermatochalasis. ??Referral will be made, he understands [facility]??recommended, if he does not??hear from that referral office in 2 weeks he is welcome to call us back Assessment/Plan 1.??Ptosis of eyelid??[address] Shipley in [facility]. Patient was understanding and agreeable, we wouldproceed with referral. Patient understands that should he not hear from them to schedule within thenext 2 weeks he should call the office to check on referral. Problem List/Past Medical History Ongoing No qualifying data Historical No qualifying data Medications No active medications Allergies tetracycline erythromycin Electronically Signed on 06/17/2024 09:24 EDT Jerald Carrillo, Patient Care team information Care Team Personnel Name: FREDI MELVIN Position: No Access Member Role: Primary Care Physician Address: Address: [address] [place] [id number] [place] [address] Care Team Related Persons Name: ALEN BRUSH Address: Home [address] [place] [id number] [place] [address]
[2024-06-29] MEDS: Atorvastatin 40 MG TAB 80 MG PO (16:02)
--- OUTSIDE RECORDS SUMMARY | 2024-06-29 16:02 | XMS_ITS | Encounter Summary ---
Author Organization [facility] Address [address] [place] [address] Care Team Providers Care Digital Analyst Name Role Phone Maximilian Fall MD Primary Care Provider [phone] Encounter Details Date Type Department Care Team (Late st Contact Info) Description 02/17/2023 Lab Requisition [facility] Pathology & Laboratory Medicine - [address] [phone] Outr Resulting Lab, Provider Social History Tobacco Use Types Packs/Day Years [...] Procedure Name Priority Date/Time Associated Diagnosis Comments FECAL BACTERIAL PATHOGENS BY PCR Routine 02/17/2023 7:00 EDT documented in this encounter Results * FECAL BACTERIAL PATHOGENS BY PCR (02/17/2023 7:00 EDT) Salmonella PCR Negative Negative 02/18/2023 11:17 EDT [facility] Shigella/Enteroin vasive E. coli Negative Negative 02/18/2023 11:17 EDT [facility] CAMPYLOBACTER PCR Negative Negative 02/18/2023 11:17 EDT [facility] Shiga Toxin PCR Negative Negative 03/29/202 3 11:17 EDT [facility] Feces SPECIMEN FROM RECTUM / Unknown 02/17/2023 7:00 EDT 02/17/2023 22:14 EDT Provider Outr Resulting Lab MICROBIOLOGY - GENERAL ORDERABLES Performing Organization Address City/State/[facility] Co de Phone Number [facility] [address] [place] [address] documented in this encounter Visit Diagnoses Not on filedocumented in this encounter Care Teams Digital Analyst Relationship Specialty Start Date End Date Maximilian Fall MD PCP - General 03/18/16 documented as of this encounter
--- OUTSIDE RECORDS SUMMARY | 2024-06-29 16:02 | XMS_ITS | Encounter Summary ---
Author Organization [facility] Address [address] [place] [address] Care Team Providers Care Hasher Machine Operator Name Role Phone Unavailable Primary Care Provider Unavailabl e Encounter Details Date Type Department Care Team (Late st Contact Info) Description 10/09/2008 Before PRISM Converted Visit (Maple) [facility] - Maple conversion [address] [place] [address] Yeni Agustin MD [address] [place] [id number] Social History Tobacco Use Types Packs/Day Years Used Date Smoking Tobacco: Never Assessed Sex and Gender Information Value Date Recorded Sex Assigned at Not on file Gender Identity Not on file Sexual Orientation Not on file documented as of this encounter Plan of Treatment Not on file documented as of this encounter Procedures Procedure Name Priority Date/Time Associated Diagnosis Comments SURGICAL PATHOLOGY Routine 10/09/2008 0:00 EST documented in this encounter Results * SURGICAL PATHOLOGY (10/09/2008 0:00 EST) Pathology Report: SURGICAL PATHOLOGY REPORT ? Reports generated via electronic interface contain original data; ? however they are lacking the format of the original report. ? Caution should be taken when reading/interpreting unformatted reports. ? Name: ? RODRIGUEZ, BRIAN ? Accession #: ? [id number] ? : ? 1950 (Age: 58) ??M ? Collect Date: ? 10/09/2008 ? Location: ? [facility] ? Receive Date: ? 10/10/2008 ? Provider: YENI AGUSTIN MD ? Copy to: GIULIA MCLEOD MD ? Final Pathologic Diagnosis: ? Colon, sigmoid, biopsy: ? 1. ?? Moderate chronic colitis, moderately active. See comment. ? 2. ?? Negative for dysplasia. ? Comment: ? The biopsy from the sigmoid colon reveals significant architectural ? distortion in the form of branched crypts and uneven crypt spacing. ? Additionally, there is a striking increase in the lymphoplasmacytic infiltrate ?? within the lamina propria with basal plasmacytosis. ??Cryptitis and ??crypt ? abscesses are prominent. Granulomas are absent. ? Overall, the findings are consistent with inflammatory bowel disease in the ? correct clinical setting. ??However, similar histologic changes can also be seen in Diverticular- associated colitis. ??Clinical correlation is essential to rule out the latter possibility. (Dr. Gómez)/mpl ? Document reviewed and electronically signed by: ? Fabiana Gómez MD ? Report ??Date: 10/12/2008 16:45 ? By the signature above, the attending physician certifies that he/she has ? personally conducted a gross and/or microscopic examination of the described ? specimens and rendered or confirmed the above diagnosis. ? Specimen(s) Received: ? Sigmoid bx ? Clinical History: ? Diarrhea, ? Giardia, screening colonoscopy ? Gross Description: ? Received in Lloyd's fixative labelled Rodriguez and sigmoid bx are ? three stephen-pink irregular soft tissues ranging from 0.4 x ??0.3 x 0.2 cm to 0.5 x 0.4 x 0.2 cm. ??The specimens are entirely submitted in one cassette. ??(A. ? Marin)/ljk ? End of Report ? JOSEPHINE ESCOTO 10/09/2008 10/10/2008 9:0 5 EST Yeni Agustin MD PATHOLOGY ORDERABLE S [facility] [address] [place] [address] documented in this encounter Visit Diagnoses Not on filedocumented in this encounter
--- OUTSIDE RECORDS SUMMARY | 2024-06-29 16:02 | XMS_ITS | Encounter Summary ---
Author Organization [facility] Address [address] [place] [address] Care Team Providers Care Clinical Assistant Name Role Phone More Naylor MD Primary Care Provider [phone] Encounter Details Date Type Department Care Team (Late st Contact Info) Description 10/30/2016 Results Only [facility] [phone] Tamara Reza, [address] [place], [place] [id number] Social History Tobacco Use Types Packs/Day Years Used Date Smoking Tobacco: Never Assessed Sex and Gender Information Value Date Recorded Sex Assigned at Not on file Gender Identity Not on file Sexual Orientation Not on file documented as of this encounter Plan of Treatment Not on file documented as of this encounter Procedures Procedure Name Priority Date/Time Associated Diagnosis Comments SURGICAL PATHOLOGY Routine 10/30/2016 11 :30 EST documented in this encounter Results * SURGICAL PATHOLOGY (10/30/2016 11:30 EST) Pathology Report: SURGICAL PATHOLOGY REPORT Reports generated via electronic interface contain original data; however they are lacking the format of the original report. Caution should be taken when reading/interpreti ng unformatted reports. Name: ? NAYA RODRIGUEZ ? Accession #: ? [id number] ? : ? 1950 (Age: 66) ??M ? Collect Date: ? 10/30/2016 ? Location: ? [facility] ? Receive Date: ? 11/01/2016 ? Provider: TAMARA REZA DO Copy to: MORE NAYLOR MD ? Final Pathologic Diagnosis: A: SKIN, LEFT POSTERIOR NECK, ORIENTED EXCISION: - Residual basal cell carcinoma, nodular type involving the entire length of the specimen. - All final margins including 3:00 (part B), 9:00 (part D) and deep margin (part E) negative for tumor. - See comment. B: SKIN, LEFT POSTERIOR NECK, REMARGINATION AT 3 O'CLOCK TIP (WIDE 12-3-6 O'CLOCK RE-EXCISION): - Biopsy site changes. - Negative for tumor. C: SKIN, LEFT POSTERIOR NECK, 3 O'CLOCK DOG EAR EXCISION: - Benign skin. - Negative for tumor. D: SKIN, LEFT POSTERIOR NECK, 9 O'CLOCK DOG EAR EXCISION: - Benign skin. - Negative for tumor. E: SOFT TISSUE, LEFT POSTERIOR NECK, LATERAL ONE-THIRD DEEP MARGIN BIOPSY: - Benign fibroadipose tissue. - Negative for tumor. Comment: The invasive tumor has a central mass with the tumor nests extending in the dermis along the entire length of the specimen. The original frozen section of the 9:00 tip enface margin was negative with the permanent sections showing tumor (Dr. Sena reviewed). Following discussion with Dr. Reza, the 9:00 dog ear specimen (part D) was negative and would be located at the 9:00 tip therefore clearing that margin from tumor. Thus, all surgical margins are negative for tumor. This sample was processed at the [facility]. ??The slides were reviewed and the final diagnosis was made at , [address] [place] [address]. ([place] License Number [id number]) Document reviewed and electronically signed by: AMIE CONCEPCION MD Report ??Date: 11/10/2016 15:55 By the signature above, the attending physician certifies that he/she has personally conducted a gross and/or microscopic examination of the described specimens and rendered or confirmed the above diagnosis. Specimen(s) Received: A. ??Basal cell skin cancer left posterior neck, 12 o'clock blank, 3 o'clock white, 6 o'clock blue, 9 o'clock black B. ??Reexcision 3 o'clock, purple marker is new margin C. ??3 o'clock dog ear, purple is new margin D. ??9 o'clock dog ear, purple is new margin E. ??Lateral one-third deep margin, purple is new margin Clinical History: BCC; clinical diagnosis code: C44.91 Intraoperative Interpretation: A. ??SKIN, LEFT POSTERIOR NECK, EXCISION: - Residual invasive basal cell carcinoma. ??Tumor extending to 3 o'clock tip margin and very closely approaching peripheral margin next to 3 o'clock tip margin. ??Single focus of uninked tumor (A7) extending to deep edge of specimen. All other margins negative for tumor. - FSA1. ??3 o'clock tip margin (en face): ??Positive for basal cell carcinoma, suggest remargination if clinically feasible. - FSA2. ??9 o'clock tip margin (en face): ??Negative for tumor. - FSA3. ??12-6 o'clock perpendicular peripheral margins: ??Residual basal cell carcinoma with suspicious nest of possible tumor cells closely approaching (within less than 0.05 cm) from the peripheral margin. - FSA4. ??12-6 o'clock perpendicular peripheral margins: ??Residual basal cell carcinoma. ??All margins negative for tumor. - FSA5. ??12-6 o'clock perpendicular peripheral margins: ??Residual basal cell carcinoma. ??All margins negative for tumor. - FSA6. ??12-6 o'clock perpendicular peripheral margins: ??Residual basal cell carcinoma. ??All margins negative for tumor. - FSA7. ??12-6 o'clock perpendicular peripheral margins: ??Residual basal cell carcinoma. ??Tumor nest separate uninked near the deep margin. ??Finding discussed with Dr. Reza and additional deep margin sampling recommended, if clinically feasible. - FSA8+FSA9. ??12-6 o'clock perpendicular peripheral margins: ??Residual basal cell carcinoma. ??All margins negative for tumor. - Reported to Dr. Reza at approximately 10:10 AM and 10:30 AM. ??Patient identified prior to verbal report. ??Procedure performed at [facility]. ??Staining of frozen section is adequate. ??Dr. Shan Concepcion 10/30/2016 B. ??SKIN, LEFT POSTERIOR NECK, REMARGINATION AT 3 O'CLOCK TIP (WIDE 12-3-6 O'CLOCK REEXCISION AT TIP): - Negative for tumor at new margin. ??Biopsy site changes. ??All margins negative for tumor. - FSB1. ??12 o'clock new margin (en face): ??Biopsy site change. ??Negative for malignancy. - FSB2. ??6 o'clock new margin (en face): ??Biopsy site change. ??Negative for malignancy. - FSB3-FSB5. ??3 o'clock margin with sections from old to new margin: ??Negative for tumor at new margin. - Reported to Dr. Reza at approximately 11:08 AM. ??Patient identified prior to verbal report. ??Procedure performed at [facility]. Staining of frozen section is adequate. ??Dr. Shan Concepcion 10/30/2016 Gross Description: A. ? Received fresh labelled with proper patient identification (initials B, A) and basal cell skin cancer left posterior neck for frozen section is an oriented elliptical excision of stephen hair bearing skin (3.3 x 2.0 x 0.5 cm). It is oriented with three sutures, a white suture at 3 o'clock, a blue suture at 6 o'clock, and a black suture at 9 o'clock. There is a raised ill defined lesion measuring 0.9 x 0.5 x 0.3 cm, extending to within 0.5 cm from the 6 o'clock and 12 o'clock margins. The 12-3-6 o'clock margin is inked green and the 6-9-12 o'clock margin is inked black. The 3 o'clock and 9 o'clock tips are submitted for frozen section, en face, and the specimen is serially sectioned from 3 o'clock to 9 o'clock. The specimen is entirely submitted for frozen section as FSA1-FSA9 with the interpretations rendered as above. The specimen is submitted for permanent sections as follows: BLOCK VÁSQUEZ A1- ??3 o'clock tip margin, en face A2- ??9 o'clock tip margin, en face A3-A9- ??12 o'clock to 6 o'clock perpendicular margins from 3 o'clock to 9 o'clock (please see submitted diagram attached) B. ?Received fresh labelled with proper patient identification (initials B, A) and reexcision 3 o'clock, purple marker is new margin is an oriented C-shaped excision of skin with purple ink designating the new margin (1.2 cm from 12 o'clock to 6 o'clock, 0.9 cm from 3 o'clock to 9 o'clock, and is excised to a depth of 0.5 cm). The old margin is inked green, the new margin is inked orange, and the deep margin is inked black. The specimen is serially sectioned from 12 o'clock to 6 o'clock and is entirely submitted for frozen section as FSB1-FSB5 with the interpretations rendered as above. The specimen is submitted for permanent sections as follows: BLOCK VÁSQUEZ B1- ??presumed 12 o'clock margin, en face B2- ??presumed to 6 o'clock margin, en face B3-B5- ??12 o'clock to 6 o'clock perpendicular margins (old margin to new margin) (central sections) C. ?Received in formalin labelled with proper patient identification (initials B, A) and 3 o'clock dog ear, purple is new margin is an oriented triangular excision of stephen-white skin with purple ink designating the new 3 o'clock margin (1.8 cm from 3 o'clock to 9 o'clock, 0.9 cm from 12 o'clock to 6 o'clock, and is excised to a depth of 0.4 cm). The 6 o'clock aspect is blue inked and the 12 o'clock aspect is black inked. The specimen is bisected and entirely submitted as follows: BLOCK VÁSQUEZ C1- ??6 o'clock aspect of new margin, en face C2- ??12 o'clock aspect of new margin, en face D. ?Received in formalin labelled with proper patient identification (initials B, A) and 9 o'clock dog ear, purple is new margin is an oriented triangular excision of stephen-white skin with purple ink designating the new 9 o'clock margin (2.4 cm from 9 o'clock to 3 o'clock, 0.8 cm from 12 o'clock to 6 o'clock, and is excised to a depth of 0.5 cm). The 6 o'clock aspect is blue inked and the 12 o'clock aspect is black inked. The specimen is bisected and entirely submitted as follows: BLOCK VÁSQUEZ D1- ??6 o'clock aspect of new margin, en face D2- ??12 o'clock aspect of new margin, en face E. ?Received in formalin labelled with proper patient identification (initials B, A) and lateral one-third deep margin, purple is new margin is a single piece of soft tissue (1.2 x 0.9 x 0.3 cm). The presumed old margin has a smooth white surface, while the presumed new margin has a more lobulated appearance. The entire specimen is covered in purple ink. Submitted intact as E1, en face. Dr. Chowdhury 11/03/2016 3:11 PM End of Report [facility] 10/30/2016 11:3 0 EST 11/01/2016 11:30 EST Tamara Reza DO PATHOLOGY ORDER ASHLIE [facility] [address] [place] [address] documented in this encounter Visit Diagnoses Not on filedocumented in this encounter Care Teams Clinical Assistant Relationship Specialty Start Date End Date More Naylor MD PCP - General 03/18/16 documented as of this encounter
--- OUTSIDE RECORDS SUMMARY | 2024-06-29 16:02 | XMS_ITS | Encounter Summary ---
Author Organization [facility] Address [address] [place] [address] Care Team Providers Care Chemical Strength Tester Name Role Phone More Fall MD Primary Care Provider [phone] Encounter Details Date Type Department Care Team (Late st Contact Info) Description 09/04/2016 Results Only [facility] [phone] More Fall MD [address] [place] [address] Social History Tobacco Use Types Packs/Day Years Used Date Smoking Tobacco: Never Assessed Sex and Gender Information Value Date Recorded Sex Assigned at Not on file Gender Identity Not on file Sexual Orientation Not on file documented as of this encounter Plan of Treatment Not on file documented as of this encounter Procedures Procedure Name Priority Date/Time Associated Diagnosis Comments SURGICAL PATHOLOGY Routine 09/04/2016 11 :23 EDT documented in this encounter Results * SURGICAL PATHOLOGY (09/04/2016 11:23 EDT) Pathology Report: SURGICAL PATHOLOGY REPORT Reports generated via electronic interface contain original data; however they are lacking the format of the original report. Caution should be taken when reading/interpret ing unformatted reports. Name: ? NAYA RODRIGUEZ ? Accession #: ? [id number] ? : ? 1950 (Age: 66) ??M ? Collect Date: ? 09/04/2016 ? Location: ? [facility] ? Receive Date: ? 09/05/2016 ? Provider: MORE FALL MD Copy to: ? Final Pathologic Diagnosis: SKIN OF NECK, LEFT SIDE, PUNCH BIOPSY: - Basal cell carcinoma, nodular type. - Lesion measures within 0.1 mm of the peripheral edge. - Lesion measures approximately 0.8 mm to the biopsy base. Document reviewed and electronically signed by: YASHIRA PALAFOX MD Report ??Date: 09/08/2016 12:11 By the signature above, the attending physician certifies that he/she has personally conducted a gross and/or microscopic examination of the described specimens and rendered or confirmed the above diagnosis. Specimen(s) Received: Left side of neck Clinical History: Punch biopsy from edge of 4.0 mm raised skin lesion Gross Description: ? Received in formalin labelled with proper patient identification (initials B, A) and neck is a punch biopsy of stephen-white skin (0.4 cm in diameter and 0.3 cm in thickness). The definitive lesions are identified. The margins are inked blue. The tissue is bisected in 1. FE Ray (ASCP) 09/05/2016 2:42 PM End of Report [facility] 09/04/2016 11:2 3 EDT 09/05/2016 11:23 EDT More Fall MD PATHOLOGY ORDERABLES [facility] [address] [place] [address] documented in this encounter Visit Diagnoses Not on filedocumented in this encounter Care Teams Chemical Strength Tester Relationship Specialty Start Date End Date More Fall MD PCP - General 03/18/16 documented as of this encounter
--- OUTSIDE RECORDS SUMMARY | 2024-06-29 16:02 | XMS_ITS | Encounter Summary ---
Author Organization [facility] [place] [address] Care Team Providers Care Automation Controls Specialist Name Role Phone Deacon Watters APRN Primary Care Provider [phone] Reason for Referral * Consultation (Routine) - Closed Specialty Diagnoses / Procedures Referred By Contac t Referred To Contact [facility] Diagnoses Spondylosis of cervical region without myelopathy or radiculopathy Santiago Morales PA [facility] [place] [address] [facility] [place] [address] Referral ID Status Reason Start Date Expiration Date V isits Requested Visits Authorized [id number] Closed Pain Consult 04/06/2024 04/06/2025 1 1 Reason for Visit * Reason Comments Follow-up Pain Back of neck- right side of neck is worse Encounter Details Date Type Department Care Team (Latest Contact Info) Description 04/06/2024 8:30 AM EDT Office Visit [facility] [place] [address] Santiago Morales PA [facility] [place] [address] Spondylosis of cervical region without myelopathy or radiculopathy Social History Tobacco Use Types Packs/Day Years Used Date Smoking Tobacco: Former Cigarettes 4 30 1 12/01/1961 - 10/01/1992 Smokeless Tobacco: Former Chew Comments:Denies vaping Alcohol Use Standard Drinks/Week Comments Yes 0 (1 standard drink = 0.6 oz pur e alcohol) twice a year Sex and Gender Information Value Date Recorded Sex Assigned at Male 12/07/2023 7:54 AM EST Gender Identity Not on file Sexual Orientation Not on file documented as of this encounter Last Filed Vital Signs Vital Sign Reading Time Taken Comments Blood Pressure - - Pulse - - Temperature - - Respiratory Rate - - Oxygen Saturation - - Inhaled Oxygen Concentration - - Weight 109.8 kg (242 lb) 04/06/2024 8:23 AM EDT Height 193 cm (6' 4) 04/06/2024 8:23 AM EDT Body Mass Index 29.46 04/06/2024 8:23 AM EDT documented in this encounter Progress Notes * Santiago Morales PA - 04/06/2024 8:30 AM EDT Images from the original note were not included. [facility] Santiago Morales PA-C Dear Colleagues, I had the pleasure of seeing this patient at the [facility] for evaluation. Chief Complaint: Neck pain. Intermittent left arm symptoms HPI: Brian Rodriguez is a 73 y.o. male who presents to clinic for follow up of above. Last seen by me on 01/07/24 when he was complaining of primarily axial neck pain. He reports occasional numbness, tingling and weakness of the left upper extremity. At our last visit, plan was to begin PT which has not made a significant improvement in his symptoms. He is quite bothered by his symptoms and would like to explore next steps. No fine motor changes, no gait disturbances. Medications and allergies reviewed and can be found in e[facility] Review of systems: As above in HPI Physical exam: Resting comfortably in no acute distress. Occasionally winces in pain at rest. He has limited ROM of cervical spine in all planes. He has normal sensation to light touch throughout bilateral upper extremities. Motor exam shows 5/5 strength though with slight weakness with left residential supervisor compared to thatof the right. Imaging: No new imaging available for review. Assessment/plan Diagnosis: -cervical spondylosis Brian is a 73 year old male who presents to clinic for follow up of neck pain with intermittent andoccasional left arm numbness and tingling. He has some degenerative changes particularly at C5-6 with some foraminal narrowing but no definitive neural impingement. We discussed next steps which could included EMG/NCS or referral to pain management. I am not entirely confident EMG/NCS studies will provide any further diagnostic benefit as his radicular symptoms are more intermittent. It was decided to move forward with pain management consult for consideration of OSMIN or MBB/RFA which he is agreeable to. I am happy to follow up with patient after any of these procedures for further discussionif needed. Plan: 1) Referral to pain management to discuss possible interventional procedures including consideration of OSMIN vs MBB/RFA Thank you for letting me participate in this patient's care. Sincerely, Snatiago Morales PA-C [facility] documented in this encounter Plan of Treatment Upcoming Encounters Date Type Department Care Team (Late st Contact Info) Description 08/15/2024 9:00 AM EDT Office Visit Gastroenterology at [place] [phone] Dion Barlow MD [facility] [place] [address] 09/01/2024 11:20 AM EDT Office Visit Dermatology at [facility] [address] [place] [phone] Gómez Mercer MD [facility] DR EDDIE S[place] [address] 09/21/2024 2:45 PM EDT Office Visit [facility] [place] [phone] Trung Hoyos MD [facility] [place] [address] Scheduled Referrals Name Type Priority Associated Diagnoses Orde r Schedule Referral to Pain and Spine Center (Internal only) Outpatient Referral Routine Spondylosis of cervical region without myelopathy or radiculopathy Ordered: 04/06/2024 documented as of this encounter Visit Diagnoses Diagnosis Spondylosis of cervical region without myelopathy or radiculopathy Cervical spondylosis without myelopathy documented in this encounter Care Teams Automation Controls Specialist Relationship Specialty Start Date End Date Deacon Watters, [employer] SP[employer]ER [address] [place] [address] [address] [place] [address] PCP - General Family Medicine 02/17/22 documented as of this encounter
--- OUTSIDE RECORDS SUMMARY | 2024-06-29 16:02 | XMS_ITS | Encounter Summary ---
Author Organization [facility] Address [address] [place] [address] Care Team Providers Care Director Of Hotel Operations Name Role Phone Unavailable Primary Care Provider Unavailabl e Encounter Details Date Type Department Care Team (Late st Contact Info) Description 12/05/2009 Orders Only [facility] Laboratory Services - [facility] ([facility]) [address] [place], [place] [address] [place] [address] [place] [phone] Social History Tobacco Use Types Packs/Day Years Used Date Smoking Tobacco: Never Assessed Sex and Gender Information Value Date Recorded Sex Assigned at Not on file Gender Identity Not on file Sexual Orientation Not on file documented as of this encounter Plan of Treatment Not on file documented as of this encounter Procedures Procedure Name Priority Date/Time Associated Diagnosis Comments SURGICAL PATHOLOGY Routine 12/05/2009 0:00 EST documented in this encounter Results * SURGICAL PATHOLOGY (12/05/2009 0:00 EST) Pathology Report: SURGICAL PATHOLOGY REPORT ? Reports generated via electronic interface contain original data; ? however they are lacking the format of the original report. ? Caution should be taken when reading/interpreti ng unformatted reports. ? Name: ? RODRIGUEZ, BRIAN ? Accession #: ? [id number] ? : ? 1950 (Age: 59) ??M ? Collect Date: ? 12/05/2009 ? Location: ? [facility] ? Receive Date: ? 12/06/2009 ? Provider: JENNIFER N TIFFANI MD ? Copy to: GIULIA MCLEOD MD ? Final Pathologic Diagnosis: ? Soft tissue, elbow, right, excision: ? - Cyst lined by inflamed synovial tissue, consistent with bursitis. ? Document reviewed and electronically signed by: ? Fabiana Gómez, ? Report ??Date: 12/10/2009 15:59 ? By the signature above, the attending physician certifies that he/she has ? personally conducted a gross and/or microscopic examination of the described ? specimens and rendered or confirmed the above diagnosis. ? Specimen(s) Received: ? Bursa R elbow ? Clinical History: ? Bursitis Rt elbow, olecranon ? Gross Description: ? Received in formalin labelled Rodriguez, Brian and bursa right elbow is a 5.0 x 3.5 x 2.8 cm saccular shaped structure of rubbery pink-stephen tissue. ??The ?? outer surface is smooth to slightly roughened with a small amount of adherent ?? yellow-stephen adipose tissue. ??The inner lining is generally stephen-white, smooth and glistening, with focal smooth nodular protuberances that range from 0.3 x 0.2 x 0.1 cm to 1.2 x 0.8 x 0.5 cm. ??There are also bridging bands of tissue across ?? the inner aspect that range from 3.5 cm in length by 0.2 cm in diameter to 2.0 ?? cm in length by 0.8 cm in diameter. ??There are no areas of hemorrhage or mass ?? lesions suggestive of a neoplastic focus. ??Cloth Reeler sections are submitted in (A1) and (A2). (Davina Ordoñez)/mpl ? End of Report ? JOSEPHINE ESCOTO 12/05/2009 12/06/2009 8:4 7 EST Jennifer Saenz MD PATHOLOGY ORDERABLES [facility] [address] [place] [address] documented in this encounter Visit Diagnoses Not on filedocumented in this encounter
--- OUTSIDE RECORDS SUMMARY | 2024-06-29 16:02 | XMS_ITS | Encounter Summary ---
Author Organization [facility] Address [facility] [place] [address] Care Team Providers Care Spinner Tender Name Role Phone Deacon Watters APRN Primary Care Provider [phone] Reason for Visit * Reason Comments Rash Encounter Details Date Type Department Care Team (Late st Contact Info) Description 06/07/2024 1:20 PM EDT Office Visit Dermatology at [facility] [address] [place] [address] Gómez Mercer MD [facility] [address] EDDIE [place] [address] Tinea cruris Social History Tobacco Use Types Packs/Day Years [...] on file documented as of this encounter Progress Notes * Gómez Mercer MD - 06/07/2024 1:20 PM EDT Images from the original note were not included. DEPARTMENT OF DERMATOLOGY [facility] Provider: Gómez Mercer MD Patient's preferred name Brian Preferred contact method for results []Phone []myD-H []Letter Detailed phone message OK? N Are there any other people with whom we may discuss your care? 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 Patient returns to clinic today for rash inthe groin. Patient reports: - Worsening with topical TAC Last visit at Dermatology: Visit date not found Last visit with this provider: Visit date not found Medications: Reviewed in eD-H Allergies: Reviewed in eD-H Skin Examination: Focused skin examination of the groin was normal with the exception of the findings below. Assessment/Plan #. Tinea Cruris - pink arcuate scaly red patches in the groin - RIMA POSITIVE for fungal elements. - Reviewed diagnosis and treatment. - Stop applying triamcinolone to affected areas - Start Rx: ketoconazole 2% cream: Apply twice daily to affected areas on the groin - RTC in 6-8 weeks Other: N/A RTC: 6-8 weeks for Tinea Cruris []Note routed to secretary bookkeeper []Recall placed in scheduling system [x]Appointment scheduled at checkout Scribe attestation: Danyell Anton [facility] has performed the documentation for this encounter inthe presence of and acting as a scribe for Gómez Mercer MD. I performed the above scribed service and agree with the accuracy of the documentation in this encounter. Reviewed and signed by: Gómez Mercer MD Dermatology [facility] Patient seen and evaluated with staff recoil spring winder: Maria G Padilla MD Dermatology [facility] * Maria G Padilla MD - 06/07/2024 1:20 PM EDT I directly supervised Gómez Mercer MD in the care of this Dermatology patient in person. I saw and evaluated this patient with Gómez Mercer MD. Gómez Mercer MD presented the history and physical exam details to me, then we saw the patient together, and I confirmed these findings. I agree withdetails as written. My physical examination confirms Gómez Mrecer MD's findings. The assessment and plan were formulated in discussion with me at the time of visit, and I agree with them as documented. Maria G Padilla MD Staff Thin Film Technician Department of Dermatology [facility] documented in this encounter Plan of Treatment Upcoming Encounters Date Type Department Care Team (Late st Contact Info) Description 08/15/2024 9:00 AM EDT Office Visit Gastroenterology at [place] [phone] Dion Barlow MD [facility] [place] [address] 09/01/2024 11:20 AM EDT Office Visit Dermatology at [address] [phone] Gómez Mercer MD [facility] [address] EDDIE [place] [address] 09/21/2024 2:45 PM EDT Office Visit [facility] [place] [phone] Trung Hoyos MD [facility] [place] [address] documented as of this encounter Visit Diagnoses Diagnosis Tinea cruris Dermatophytosis of groin and perianal area documented in this encounter Additional Health Concerns Infection Onset Date Last Indicated Resolved Time Rule Out C. difficile 06/07/2024 06/06/20242023 2:27 PM EDT documented as of this encounter Care Teams Spinner Tender Relationship Specialty Start Date End Date Deacon Watters APRN [address] [place] [address] PCP - General Family Medicine 02/17/22 documented as of this encounter
--- OUTSIDE RECORDS SUMMARY | 2024-06-29 16:02 | XMS_ITS | Encounter Summary ---
Author Organization [facility] Address [address] [place] [address] Care Team Providers Care Check Weigher Name Role Phone Maximilian Fall MD Primary Care Provider [phone] Encounter Details Date Type Department Care Team (Latest Contact Info) Description 09/04/2016 8:11 EDT - 09/04/2016 23:59 EDT Hospital Encounter [address] [address] Unknown, Provider, Discharge Disposition: Home or Self Care Social History Tobacco Use Types Packs/Day Years Used Date Smoking Tobacco: Never Assessed Sex and Gender Information Value Date Recorded Sex Assigned at Not on file Gender Identity Not on file Sexual Orientation Not on file documented as of this encounter Discharge Disposition Disposition Code Departure Means Destination Home or Self Custodial documented in this encounter Plan of Treatment Not on file documented as of this encounter Visit Diagnoses Not on filedocumented in this encounter Care Teams Check Weigher Relationship Specialty Start Date End Date Maximilian Fall MD PCP - General 03/18/16 documented as of this encounter
--- OUTSIDE RECORDS SUMMARY | 2024-06-29 16:02 | XMS_ITS | Encounter Summary ---
Author Organization [facility] Address [address] [place] [address] Care Team Providers Care Supervisor Building Maintenance Name Role Phone Maximilian Fall MD Primary Care Provider [phone] Encounter Details Date Type Department Care Team (Late st Contact Info) Description 11/28/2021 Lab Requisition [facility] Pathology & Laboratory Medicine - [address] [phone] Outr Resulting Lab, Provider Social History Tobacco [...] Procedure Name Priority Date/Time Associated Diagnosis Comments ZZCOVID-19 TEST [facility] PCR Today 11/27/2021 12:35 EST COVID-19 TESTING Routine 11/27/2021 12:3 5 EST documented in this encounter Results * COVID-19 TEST [facility] PCR (11/27/2021 12:35 EST) Swab 11/27/2021 12:3 5 EST 11/28/2021 17:45 EST Provider Outr Resulting Lab MICROBIOLOGY - GENERAL ORDERABLES [facility] [address] [place] [address] * COVID-19 TESTING (11/27/2021 12:35 EST) COVID-19 rt-PCR Result Negative Negative 11/29/2021 16:23 EST [facility] Comment: This test has not been FDA cleared or approved. This test has been authorized by FDA under an EUA for use by authorized laboratories. This test has been authorized only for detection of nucleic acid from 2019-nCoV, not for any other viruses or pathogens. This test is only authorized for the duration of the declaration that circumstances exist justifying the authorization of emergency use of in vitro diagnostic tests for detection and/or diagnosis of 2019-nCoV under section 564(b)(1) of Act, 21 U.S.C ?? 360bbb-3(b) (1), unless the authorization is terminated or revoked sooner. Negative results do not preclude 2019-nCoV infection and should not be used as the sole basis for treatment or other patient management decisions. Negative results must be combined with clinical observations, patient history, and epidemiological information. This test was developed and its performance characteristics determined by [facility]. It has not been cleared or approved by the US Food and Drug Administration. FDA does not require this test to go through premarket FDA review. This test is used for clinical purposes. It should not be regarded as investigational or for research. This laboratory is certified under the Clinical Laboratory Improvement Amendments (CLIA) as qualified to perform high complexity clinical laboratory testing. This test is based on the [facility] COVID-19 Emergency Use Authorization (EUA) assay, with minor modification as defined by the FDA Performed on the Triboteko 7 Flex RT-PCR System. Performing Lab [facility] 11/29/2021 16:23 EST [facility] Swab 11/27/2021 12:3 5 EST 11/28/2021 17:45 EST Provider Outr Resulting Lab MICROBIOLOGY - GENERAL ORDERABLES [facility] [address] [place] [address] documented in this encounter Visit Diagnoses Not on filedocumented in this encounter Care Teams Supervisor Building Maintenance Relationship Specialty Start Date End Date Maximilian Fall MD PCP - General 03/18/16 documented as of this encounter
--- OUTSIDE RECORDS SUMMARY | 2024-06-29 16:02 | XMS_ITS | Encounter Summary ---
Author Organization [facility] Address [address] [place] [address] Care Team Providers Care Climatology Teacher Name Role Phone Maximilian Fall MD Primary Care Provider [phone] Encounter Details Date Type Department Care Team (Late st Contact Info) Description 07/09/2021 Lab Requisition [facility] Pathology & Laboratory Medicine - [address] [phone] Outr Resulting Lab, Provider Social History Tobacco [...] Comments ZZCOVID-19 TEST [facility] PCR Today 07/08/2021 16:45 EDT COVID-19 TESTING Routine 07/08/2021 16:4 5 EDT documented in this encounter Results * COVID-19 TEST [facility] PCR (07/08/2021 16:45 EDT) Swab ENTIRE NASOPHARYNX / Unknown 07/08/2021 16:45 EDT 07/09/2021 15:41 EDT Provider Outr Resulting Lab MICROBIOLOGY - GENERAL ORDERABLES [facility] [address] [place] [address] * COVID-19 TESTING (07/08/2021 16:45 EDT) COVID-19 rt-PCR Result Negative Negative 07/10/2021 13:51 EDT [facility] Comment: This test has [...] developed and its performance characteristics determined by [facility]. It has not been cleared or approved [...] testing. This test is based on the [facility] COVID-19 Emergency Use Authorization (EUA) assay, with minor modification as defined by the FDA Performed on the TutorDudeso 7 Pro RT-PCR System. Performing Lab [facility] 07/10/2021 13:51 EDT [facility] Swab 07/08/2021 16:4 5 EDT 07/09/2021 15:41 EDT Provider Outr Resulting Lab MICROBIOLOGY - GENERAL ORDERABLES Performing Organization Address City/[facility] Co de Phone Number [facility] [address] [place] [address] documented in this encounter Visit Diagnoses Not on filedocumented in this encounter Care Teams Climatology Teacher Relationship Specialty Start Date End Date Maximilian Fall MD PCP - General 03/18/16 documented as of this encounter
--- OUTSIDE RECORDS SUMMARY | 2024-06-29 16:02 | XMS_ITS | Encounter Summary ---
Author Organization [facility] Address [address] [place] [address] Care Team Providers Care Cardiothoracic Physiotherapist Name Role Phone Sharad Mcleod MD Primary Care Provider Unavail able Encounter Details Date Type Department Care Team (Late st Contact Info) Description 04/08/2010 Results Only [facility] Laboratory Services - [facility] [address] [place], [place] [phone] Marcelo Agustin, DO [address] [facility] [address] [address] [place], [place] [address] Social History Tobacco Use Types Packs/Day Years Used Date Smoking Tobacco: Never Assessed Sex and Gender Information Value Date Recorded Sex Assigned at Not on file Gender Identity Not on file Sexual Orientation Not on file documented as of this encounter Plan of Treatment Not on file documented as of this encounter Procedures Procedure Name Priority Date/Time Associated Diagnosis Comments SURGICAL PATHOLOGY Routine 04/08/2010 0:00 EDT documented in this encounter Results * SURGICAL PATHOLOGY (04/08/2010 0:00 EDT) Pathology Report: SURGICAL PATHOLOGY REPORT ? Reports generated via electronic interface contain original data; ? however they are lacking the format of the original report. ? Caution should be taken when reading/interpreting unformatted reports. ? Name: ? RODRIGUEZ, BRIAN ? Accession #: ? [id number] ? : ? 1950 (Age: 59) ??M ? Collect Date: ? 04/08/2010 ? Location: ? [facility] ? Receive Date: ? 04/09/2010 ? Provider: MARCELO AGUSTIN DO ? Copy to: SHARAD MCLEOD MD ? Final Pathologic Diagnosis: ? A. ?Colon, transverse, biopsies: ? 1. ?Colonic mucosa without significant abnormality. ? B. ?Colon, descending, biopsies: ? 1. ?Colonic mucosa without significant abnormality. ? C. ?Colon, sigmoid, biopsies: ? 1. ?Moderate active colitis. ??See comment. ? 2. ? Negative for dysplasia. ? D. ?Rectum, biopsies: ? 1. ?Chronic moderately active colitis. ??See comment. ? 2. ? Negative for dysplasia. ? Comment: ? The recto-sigmoid biopsies reveal significant increase in lymphoplasmacytic infiltrate with cryptitis and crypt abscesses. ??Additionally there is basal ? plasmacytosis and architectural distortion. There are no granulomas. ??These ? findings are consistent with ulcerative colitis. ??(Davide Duran/cj ? Document reviewed and electronically signed by: ? Fabiana Gómez MD ? Report ??Date: 04/12/2010 15:34 ? By the signature above, the attending physician certifies that he/she has ? personally conducted a gross and/or microscopic examination of the described ? specimens and rendered or confirmed the above diagnosis. ? Specimen(s) Received: ? A. ?Bx transverse colon ? B. ? Bx descending colon ? C. ? Bx sigmoid colon ? D. ? Bx rectum ? Clinical History: ? Diarrhea/rectal bleeding x 6 months, colitis grossly in sigmoid/rectum ? Gross Description: ? Received in Lloyd's fixative labelled Rodriguez, Brian and biopsy ? transverse colon are two pink-stephen, irregular soft tissues, 0.3 x 0.1 x 0.1 cm ?? and 0.5 x 0.2 x 0.2 cm, submitted in toto as (A). ? Received in Hollande's fixative labelled Rodriguez, Brian and descending colon ?? biopsy are two pink-stephen, irregular soft tissues, 0.3 x 0.2 x 0.1 cm and 0.4 x ?? 0.2 x 0.2 cm, submitted in toto as (B). ? Received in Hollande's fixative labelled Rodriguez, Brian and biopsy sigmoid ? colon are four pink-stephen, irregular soft tissues ranging from 0.2 x 0.2 x 0.1 cm to 0.3 x 0.2 x 0.2 cm, submitted in toto as (C1) and (C2). ? Received in Hollande's fixative labelled Rodriguez, Brian and biopsy rectum are two pink-stephen, irregular soft tissues, 0.3 x 0.2 x 0.2 cm and 0.4 x 0.2 x 0.1 cm, submitted in toto as (D). (Davina Ordoñez)/[facility] ? End of Report ? [facility] 04/08/2010 04/09/2010 16: 29 EDT Marcelo Agustin DO PATHOLOGY ORDER ASHLIE Performing Organization Address City/State/[facility] Co de Phone Number [facility] [address] [place] [address] documented in this encounter Visit Diagnoses Not on filedocumented in this encounter Care Teams Cardiothoracic Physiotherapist Relationship Specialty Start Date End Date Sharad Mcleod MD PCP - General 12/07/09 03/17/16 documented as of this encounter
--- OUTSIDE RECORDS SUMMARY | 2024-06-29 16:02 | XMS_ITS | Encounter Summary ---
Author Organization [facility] Address [address] [place] [address] Care Team Providers Care Computer Network And Systems Engineer Name Role Phone Maximilian Fall MD Primary Care Provider [phone] Encounter Details Date Type Department Care Team (Late st Contact Info) Description 06/28/2021 Lab Requisition [facility] Pathology & Laboratory Medicine - [address] [address] Bettina Shipman, DO [address] [place], [place] [phone] Encounter for other general examination Social History Tobacco Use Types Packs/Day Years [...] Priority Date/Time Associated Diagnosis Comments SURGICAL PATHOLOGY Today 06/28/2021 13 :55 EDT Encounter for other general examination documented in this encounter Results * SURGICAL PATHOLOGY (06/28/2021 13:55 EDT) Note to Patient The following pathology results have been interpreted by your pathologist and may be available to you before your health provider has had the opportunity to review them. Please allow time for your provider to receive these results and explore management options, if applicable. 07/02/2021 9:15 [facility] Final Diagnosis A. PROXIMAL JEJUNUM, BIOPSY: - Small intestinal mucosa with no significant diagnostic abnormalities. B. DUODENUM, BULB, BIOPSY: - Duodenal mucosa with no significant diagnostic abnormalities. C. STOMACH, ANTRUM, BIOPSY: - Antral mucosa with reactive (chemical) gastropathy. - Negative for Helicobacter pylori on H&E stained sections. D. STOMACH, GREATER CURVE, BIOPSY: - Fundic mucosa with mild parietal cell hyperplasia. - Negative for Helicobacter pylori on H&E stained sections. E. GASTROESOPHAGEAL JUNCTION, BIOPSY: - Squamocolumnar mucosa with mild reactive changes and mild focal active inflammation. - Negative for intestinal metaplasia and dysplasia. - Deeper sections x3 examined. F. ESOPHAGUS, DISTAL, BIOPSY: - Squamous mucosa with no significant diagnostic abnormalities. 07/02/2021 9:15 [facility] Attestation There was significant resident/fellow involvement in the diagnostic evaluation of this case. By the signature below, the attending physician certifies that they have personally conducted a gross and/or microscopic examination of the described specimens and rendered or confirmed the above diagnosis. 07/02/2021 9:15 [facility] at 0915 Clinical History Dysphagia 07/02/2021 9:15 [facility] Gross Description A. Received in formalin labelled with proper patient identification (initials B, A) and proximal jejunum is a pale stephen tissue (0.4 x 0.4 x 0.2 cm). Submitted intact in A1. B. Received in formalin labelled with proper patient identification (initials B, A) and duodenal bulb is a pale stephen tissue (0.5 x 0.3 x 0.2 cm). Submitted intact in B1. C. Received in formalin labelled with proper patient identification (initials B, A) and antrum is a pale stephen tissue (0.4 x 0.3 x 0.2 cm). Submitted intact in C1. D. Received in formalin labelled with proper patient identification (initials B, A) and greater curve is a pale stephen focally pinpoint brown tissue (0.4 x 0.2 x 0.2 cm). Submitted intact in D1. E. Received in formalin labelled with proper patient identification (initials B, A) and GE junction is a pale stephen-white tissue (0.5 x 0.3 x 0.2 cm). Submitted intact in E1. F. Received in formalin labelled with proper patient identification (initials B, A) and distal esophagus is a white focally brown speckled tissue (0.3 x 0.3 x 0.2 cm). Submitted intact in F1. Destin Barros 06/29/2021 11:30 07/02/2021 9:15 EDT [facility] Resident/Bridger w: Gutierrez Castro DO 07/02/2021 9:15 EDT [facility] Performing Lab [facility] 9:15 EDT [facility] Scanned Images 07/02/2021 9:15 EDT [facility] Tissue ENTIRE ESOPHAGUS / Unknown 06/28/2021 13:55 EDT 06/28/2021 22:58 EDT Tissue specimen (specimen) STRUCTURE OF SMALL INTESTINE / Unknown 06/28/2021 13:55 EDT 06/28/2021 22:58 EDT Tissue specimen (specimen) STOMACH STRUCTURE / Unknown 06/28/2021 13:55 EDT 06/28/2021 22:58 EDT Tissue specimen (specimen) STOMACH STRUCTURE / Unknown 06/28/2021 13:55 EDT 06/28/2021 22:58 EDT Tissue specimen (specimen) ESOPHAGEAL STRUCTURE / Unknown 06/28/2021 13:55 EDT 06/28/2021 22:58 EDT Tissue specimen (specimen) ESOPHAGEAL STRUCTURE / Unknown 06/28/2021 13:55 EDT 06/28/2021 22:58 EDT Bettina Shipman DO PATHOLOGY ORDERABLES [facility] [address] [place] [address] documented in this encounter Visit Diagnoses Diagnosis Encounter for other general examination documented in this encounter Care Teams Computer Network And Systems Engineer Relationship Specialty Start Date End Date Maximilian Fall MD PCP - General 03/18/16 documented as of this encounter
--- OUTSIDE RECORDS SUMMARY | 2024-06-29 16:02 | XMS_ITS | Encounter Summary ---
Author Organization [facility]ly [facility] [place] [address] Care Team Providers Care Supervisor Shipping Name Role Phone Deacon Watters APRN Primary Care Provider +1- [phone] Reason for Visit * Reason Comments Medication Refill Encounter Details Date Type Department Care Team (Late st Contact Info) Description 02/19/2024 Refill [place] [phone] Dion Barlow MD [facility] [place] [address] Social History Tobacco Use Types Packs/Day Years [...] as of this encounter Plan of Treatment Upcoming Encounters Date Type Department Care Team (Late st Contact Info) Description 08/15/2024 9:00 AM EDT Office Visit [place] [phone] Dion Barlow MD [facility] [place] [address] 09/01/2024 11:20 AM EDT Office [facility] [address] [place] [address] Gómez Mercer MD [facility] DR EDDIE [place] [address] 09/21/2024 2:45 PM EDT Office Visit [facility] at [facility] [place] [phone] Trung Hoyos MD [facility] [place] [address] documented as of this encounter Visit Diagnoses Not on filedocumented in this encounter Care Teams Supervisor Shipping Relationship Specialty Start Date End Date Deacon Watters APRN [address] [place] [address] PCP - General Family Medicine 02/17/22 documented as of this encounter
--- OUTSIDE RECORDS SUMMARY | 2024-06-29 16:02 | XMS_ITS | Encounter Summary ---
Author Organization [facility] Address [address] [place] [address] Care Team Providers Care Can Slider Name Role Phone Sharad Leon MD Primary Care Provider Unavail able Encounter Details Date Type Department Care Team (Late st Contact Info) Description 03/13/2016 Results Only [facility] [phone] Marcy Laurent, DO [address] [place] [address] Social History Tobacco Use Types Packs/Day Years Used Date Smoking Tobacco: Never Assessed Sex and Gender Information Value Date Recorded Sex Assigned at Not on file Gender Identity Not on file Sexual Orientation Not on file documented as of this encounter Plan of Treatment Not on file documented as of this encounter Procedures Procedure Name Priority Date/Time Associated Diagnosis Comments SURGICAL PATHOLOGY Routine 03/13/2016 19 :42 EDT SUSCEPTIBILITY Routine 03/13/2016 12:15 EDT documented in this encounter Results * SURGICAL PATHOLOGY (03/13/2016 19:42 EDT) Pathology Report: SURGICAL PATHOLOGY REPORT Reports generated via electronic interface contain original data; however they are lacking the format of the original report. Caution should be taken when reading/interpret ing unformatted reports. Name: ? BRIAN RODRIGUZE ? Accession #: ? [id number] ? : ? 1950 (Age: 65) ??M ? Collect Date: ? 03/13/2016 ? Location: ? [facility] ? Receive Date: ? 03/14/2016 ? Provider: MARCY LAURENT DO Copy to: MORE NAYLOR MD ? Final Pathologic Diagnosis: Appendix, appendectomy: - ??Acute suppurative appendicitis with periappendicitis. Document reviewed and electronically signed by: LULU KHAN MD Report ??Date: 03/19/2016 17:06 By the signature above, the attending physician certifies that he/she has personally conducted a gross and/or microscopic examination of the described specimens and rendered or confirmed the above diagnosis. Specimen(s) Received: Appendix Clinical History: Acute appendicitis Gross Description: ? Received in formalin labelled with proper patient identification (initials B, A) and appendix are two fragments of a previously disrupted vermiform appendix (10.0 cm in length x 1.0 cm in diameter), with dusky mesoappendix. The proximal margin is stapled. ? The serosa is stephen-white and smooth. The cut surface is unremarkable. The average wall thickness is 0.3 cm with no discernible perforation site. The lumen ranges from pinpoint to 0.5 cm in diameter and contains fecalith. The proximal margin is inked black. ? The section adjacent to the proximal stapled margin, two business services sales representative cross sections and one-half of the longitudinally bisected distal tip are submitted in 1. Dr. Beth 03/17/2016 3:13 PM End of Report [facility] 03/13/2016 19:4 2 EDT 03/14/2016 19:42 EDT Marcy Laurent DO PATHOLOGY ORDERABLES [facility] [address] [place] [address] * SUSCEPTIBILITY (03/13/2016 12:15 EDT) Result ESCHERICHIA COLI Organism identification performed by client. 03/17/2016 7:51 EDT [facility] URINE / Unknown 03/13/2016 1 2:15 EDT 03/16/2016 16:18 EDT Narrative Organism Antibiotic Method Susceptibility Escherichia coli organism identification performed by client. Ampicillin [facility] IN-HOUSE METHOD >=32: Resistant Escherichia coli organism identification performed by client. Gentamicin [facility] IN-HOUSE METHOD <=2: Susceptible Escherichia coli organism identification performed by client. Trimethoprim-Sulfamethox azole [facility] IN-HOUSE METHOD <=0.5: Susceptible Escherichia coli organism identification performed by client. Nitrofurantoin [facility] IN-HOUSE METHOD <=16: Susceptible Escherichia coli organism identification performed by client. Tobramycin [facility] IN-HOUSE METHOD <=4: Susceptible Escherichia coli organism identification performed by client. Ceftriaxone [facility] IN-HOUSE METHOD <=1: Susceptible Escherichia coli organism identification performed by client. Ciprofloxacin [facility] IN-HOUSE METHOD >=4: Resistant Escherichia coli organism identification performed by client. Piperacillin Tazobactam [facility] IN-HOUSE METHOD <=16: Susceptible Moi Evans MD MICROBIOLOGY - GENER AL ORDERABLES Performing Organization Address [facility] Co de Phone Number [facility] [address] [place] [address] documented in this encounter Visit Diagnoses Not on filedocumented in this encounter Care Teams Can Slider Relationship Specialty Start Date End Date Sharad Leon MD PCP - General 12/07/09 03/17/16 documented as of this encounter
--- OUTSIDE RECORDS SUMMARY | 2024-06-29 16:02 | XMS_ITS | Encounter Summary ---
Author Organization [facility] Address [facility] [place] [address] Care Team Providers Care Political Research Scientist Name Role Phone Deacon Watters APRN Primary Care Provider +1- [phone] Encounter Details Date Type Department Care Team (Late st Contact Info) Description 03/02/2024 2:45 PM EDT Office Visit Dermatology at [facility] [address] [place] [address] Matti Bland MD [facility] DR EDDIE [place] [address] Visit for suture removal Social History Tobacco Use Types Packs/Day Years [...] as of this encounter Progress Notes * Inge Forte LPN - 03/02/2024 2:45 PM EDT Images from the original note were not included. Patient: Brian Rodriguez Date of . 1950 Today's Date: 03/02/2024 Brian Rodriguez is a 73 y.o. male here for suture removal. Exam: well healing incision, no evidence of infection Photograph: Plan: 1. Sutures removed today. Per Dr. Bland, Mupirocin ointment prescribed. 2. Follow up with referring provider or food technology teacher for skin exams. 3. Follow up with Dr. Keller: as needed Note initiated and signed by Inge Forte LPN documented in this encounter Plan of Treatment Upcoming Encounters Date Type Department Care Team (Late st Contact Info) Description 08/15/2024 9:00 AM EDT Office Visit Gastroenterology at [place] [phone] Dion Barlow MD [facility] [place] [address] 09/01/2024 11:20 AM EDT Office Visit Dermatology at [address] [address] Gómez Mercer MD [facility] [place] [address] 09/21/2024 2:45 PM EDT Office Visit [facility] [place] [address] Trung Hoyos MD [facility] [place] [address] documented as of this encounter Visit Diagnoses Diagnosis Visit for suture removal Encounter for removal of sutures documented in this encounter Care Teams Political Research Scientist Relationship Specialty Start Date End Date Deacon Watters, JAZMINE [address] [place] [address] PCP - General Family Medicine 02/17/22 documented as of this encounter
--- OUTSIDE RECORDS SUMMARY | 2024-06-29 16:02 | XMS_ITS | Encounter Summary ---
Author Organization [facility] Address [facility] [place] [address] Care Team Providers Care Finance Admin Name Role Phone Deacon Watters APRN Primary Care Provider +1- [phone] Encounter Details Date Type Department Care Team (Latest Contact Info) Description 01/28/2024 Travel Social History Tobacco Use Types Packs/Day Years [...] 9:00 AM EDT Office [place] [address] Dion Barlow MD [facility] [place] [address] 09/01/2024 11:20 AM EDT Office Visit Dermatology at [facility] [address] [place] [address] Gómez Mercer MD [facility] DR [place] [address] 09/21/2024 2:45 PM EDT Office Visit [place] [address] Trung Hoyos MD [facility] [place] [address] documented as of this encounter Visit Diagnoses Not on filedocumented in this encounter Care Teams Finance Admin Relationship Specialty Start Date End Date Deacon Watters, JAZMINE [address] [place] [address] [address] [place] [address] PCP - General Family Medicine 02/17/22 documented as of this encounter
--- OUTSIDE RECORDS SUMMARY | 2024-06-29 16:02 | XMS_ITS | Clinical Summary ---
Author Organization [facility] Address [facility] [place] [address] Care Team Providers Care Drill Press Operator Name Role Phone Deacon Watters APRN Primary Care Provider [phone] Allergies Active Allergy Reactions Criticality Noted Date Comments Erythromycin Base CIS - Unknown Empagliflozin Rash 01/07/2024 Broke out in a full body rash Tetracyclines Medications Medication Sig Dispensed Refills Start Date End Date Status omeprazole (PRILOSEC) 20 mg capsule Take 40 mg by mouth daily. Active folic acid (FOLVITE) 1 mg tabletIndications:Ul cerative colitis Take 1 tablet by mouth daily. 90 tablet 3 11/22/2012 Active glipiZIDE (GLUCOTROL) 10 mg 24 hr tablet Take 10 mg by mouth daily. Active propranolol (INDERAL LA) 80 mg Capsule,Sustained Action 24 hr take 2 capsules by mouth daily for MIGRAINE PROPHYLAXIS 0 04/06/2017 Active lisinopril (PRINIVIL;ZESTRIL) 10 mg Tablet take 1 tablet by mouth once daily 0 04/07/2017 Active metFORMIN (GLUCOPHAGE) 1,000 mg Tablet Take 500 mg by mouth daily. 0 04/07/2017 Active tamsulosin (FLOMAX) 0.4 mg Capsule, Sust. Release 24 hr Take 0.8 mg by mouth daily. Active albuterol 90 mcg/actuation HFA Aerosol Inhaler Inhale 2 puffs into the lungs every 4 hours as needed for Wheezing. Use with spacer Active BASAGLAR KWIKPEN U-100 INSULIN 100 unit/mL (3 mL) pen Inject 70 Units subcutaneously. 0 04/05/2018 Active losartan (Cozaar) 50 mg Tablet Take 100 mg by mouth daily. 03/10/2020 Active gabapentin (Neurontin) 300 mg Capsule Take 300 mg by mouth daily as needed. 04/21/2021 Active nystatin (Mycostatin) 100,000 unit/mL Suspension Place 500,000 Units inside cheek. 07/08/2021 Active sulfamethoxazole-tri methoprim DS (Bactrim DS) 800-160 mg Tablet Take 1 tablet by mouth. 07/19/2021 Active SUMAtriptan (Imitrex) 50 mg Tablet TAKE 1 TABLET BY MOUTH 1 TIME NEEDED FOR MIGRAINE HEADACHE 01/13/2022 Active atorvastatin (Lipitor) 20 mg Tablet Take 20 mg by mouth daily. Active metroNIDAZOLE (FlagyL) 500 mg Tablet Take 1 tablet by mouth 2 times daily. 20 tablet 10/06/2022 Active Additional Information Patient not taking.Reported on 06/06/2024 sulfaSALAzine (Azulfidine) 500 mg tablet Take 3 tablets by mouth 2 times daily. 540 tablet 3 09/21/2023 Active budesonide (Uceris) 2 mg/actuation FoamIndications:Left sided colitis without complications 2mg rectally nightly for 2 weeks, then continue every other night (four nights per week) 133.6 g 5 12/07/2023 Active Additional Information Patient not taking.Reported on 06/06/2024 dicyclomine (Bentyl) 20 mg tablet TAKE ONE TABLET BY MOUTH EVERY 8 HOURS NEEDED 90 tablet 5 02/23/2024 Active mupirocin (Bactroban) 2 % OintmentIndications: Visit for suture removal Apply topically once daily for 10 days to healing graft area. 22 g 03/02/2024 Active Additional Information Patient not taking.Reported on 06/06/2024 ketoconazole (Nizoral) 2 % CreamIndications:Tin ea cruris Apply twice daily to affected areas on the groin 30 g 1 06/07/2024 Active Active Problems Problem Noted Date Diagnosed Date Anemia 08/25/2021 Overview (08/25/2021): ?? Mild ?? B12, iron all nl 2020 Ulcerative colitis 10/01/2011 Overview (12/06/2023): Colonoscopy 04/08/10 (Dr. Gomes [facility]) - inflammation only within the rectum and sigmoid; extent of the exam was to the hepatic flexure; biopsies proximal to the sigmoid nl [place] [place] mildly active colitis in the sigmoid colon and a small cecal patch. Suspected lack of distal involvement due to topical therapies; sigmoid diverticulosis; nl ileum. Biopsies with active colitis on the L but not R colon. 4 mm TA in the transverse Flex sig (03/16/12) for screening for MERIT. Mild (calvo 1) colitis to 25 cm - rectum spared EGD (2018): normal [done for gastric thickening on CT] 02/26/21 Colonoscopy: Ulcerative colitis partially treated with only mild activity in the distal rectum.Moderate diverticulosis from sigmoid to ascending colon. Several HPs and one TA. [place] 03/2022 - Calvo 1 limited to rectosigmoid, diverticulosis. No dysplasia TREATMENT: cortenemas, Asacol, Rowasa, prednisone, and imodium Diabetes mellitus 10/01/2011 Hearing loss 10/01/2011 GERD (gastroesophageal reflux disease) 1 Hydrocele 10/01/2011 Asthma 10/01/2011 Encounters Date Type Department Care Team Description 06/22/2024 8:00 AM EDT Office Visit [facility] [place] [phone] Trung Hoyos MD Radiculopathy of cervical region (Primary Dx) 06/22/2024 Travel 06/09/2024 Telephone [place] [phone] Marcelle Weinberg, JAZMINE 06/07/2024 1:20 PM EDT Office Visit Dermatology at [facility] [address] [place] [address] Gómez Mercer MD Tinea cruris 06/07/2024 12:55 PM EDT - 06/07/2024 11:59 PM EDT [place] [address] Left sided colitis without complications Discharge Disposition: Home 06/06/2024 12:56 PM EDT - 06/06/2024 11:59 PM EDT [place] [address] Left sided colitis without complications Discharge Disposition: Home 06/06/2024 8:00 AM EDT Office [place] [address] Marcelle Weinberg, JAVA LEAD ENGINEER Left sided colitis without complications 06/06/2024 Telephone [place] [address] Marcelle Weinberg APRN 06/06/2024 Travel 04/06/2024 8:30 AM EDT Office Visit [facility] [place] [address] Santiago Morales PA Spondylosis of cervical region without myelopathy or radiculopathy 04/06/2024 Travel from Last 3 Months Social History Tobacco Use Types Packs/Day Years [...] on file Sexual Orientation Not on file Last Filed Vital Signs Vital Sign Reading Time Taken Comments Blood Pressure 152/70 06/06/2024 7:48 AM EDT Pulse 62 06/06/2024 7:48 AM EDT Temperature 36.3 ??C (97.3 ??F) 01/20/2024 9:44 AM ES T Respiratory Rate 18 01/20/2024 11:20 AM EST Oxygen Saturation 100% 06/06/2024 7:48 AM EDT Inhaled Oxygen Concentration - - Weight 112.9 kg (249 lb) 06/22/2024 7:58 AM EDT Height 193 cm (6' 4) 06/22/2024 7:58 AM EDT Body Mass Index 30.31 06/22/2024 7:58 AM EDT Plan of Treatment Upcoming Encounters Date Type Department Care Team (Late st Contact Info) Description 08/15/2024 9:00 AM EDT Office Visit [place] [address] Dion Barlow MD [facility] GASTROENTEROLOGY [place], [place] [id number] 09/01/2024 11:20 AM EDT Office Visit Dermatology at [facility] [address] [place] [address] Gómez Mercer MD [facility] [address] [place] [address] 09/21/2024 2:45 PM EDT Office Visit [facility] [place] [address] Trung Hoyos MD [facility] PAIN MANAGEMENT [place], [place] [id number] Health Maintenance Due Date Last Done Comments CT Colonography 1950 FIT DNA 1950 FIT 1950 Pneumoccocal Vaccine: 65+ (1 of 2 - PCV) 1954 DM Hemoglobin A1c 1958 DM Opthalmology Exam 1958 DM Urine Microalbumin yearly 1958 Hepatitis C Screening 1966 Tdap adult 1967 Tetanus vaccine 1967 Zoster vaccine (1 of 2) 1998 Advance Directive 2003 Sigmoidoscopy 03/16/2017 03/16/2012, 03/16/2012 Covid-19 Vaccine (1 - 2022-2 4 season) 2023 Influenza (Flu) vaccine (1 o f 1 - Influenza standard series) 07/24/2024 DM Creatinine yearly 06/06/2025 06/06/2024, 12/07/2023, 09/29/2022, Additional history exists Colonoscopy 01/20/2026 01/20/2024, 12/25, 03/28/2022, Additional history exists Colorectal Cancer Screening 01/20/2026 Sigmoidoscopy (10 year) with FIT yearly 01/20/2034 01/20/2024, 01/20/2024, 03/28/2022, Additional history exists Procedures Procedure Name Priority Date/Time Associated Diagnosis Comments SHIGA TOXIN ASSAY Routine 06/07/2024 9:0 0 AM EDT Left sided colitis without complications CAMPYLOBACTER ANTIGEN Routine 06/07/2024 9:00 AM EDT Left sided colitis without complications STOOL CULTURE Routine 06/07/2024 9:00 AM EDT Left sided colitis without complications HC STOOL CULTURE Routine 06/07/2024 9:00 AM EDT Left sided colitis without complications CALPROTECTIN,STOOL Routine 06/06/2024 5: 30 PM EDT Left sided colitis without complications HC C. DIFF QUIK CHEK ANTIGEN Routine 06/06/2024 5:30 PM EDT Left sided colitis without complications DIFFERENTIAL, AUTOMATED Routine 06/06/2024 9:04 AM EDT Left sided colitis without complications HEMOGRAM Routine 06/06/2024 9:04 AM EDT Left sided colitis without complications CBC (WITH DIFF) Routine 06/06/2024 9:04 AM EDT Left sided colitis without complications COMPREHENSIVE METABOLIC PANEL Routine 06/06/2024 9:04 AM EDT Left sided colitis without complications SEDIMENTATION RATE Routine 06/06/2024 9: 04 AM EDT Left sided colitis without complications CRP, ACUTE INFLAMMATION Routine 06/06/2024 9:04 AM EDT Left sided colitis without complications COLONOSCOPY Routine 01/20/2024 10:01 AM EST FLEXIBLE SIGMOIDOSCOPY Routine 03/16/2012 1:15 PM EDT Ulcerative colitis from Last 3 Months or Most Recently Relevant to Health Maintenance Results * Campylobacter Antigen (06/07/2024 9:00 AM EDT) Campylobacter Ag Immunoassay Negative for Campylobacter Antigen [facility] Stool 06/07/2024 9:00 AM EDT 06/07/2024 1:32 PM EDT Narrative Resulting Agency Comment Spec In Lab Marcelle Weinberg JAVA LEAD ENGINEER MICROBIOLOGY - GE NERAL ORDERABLES Performing Organization Address [facility] Co de Phone Number [facility] [place] [address] * Shiga Toxin Detection (06/07/2024 9:00 AM EDT) Shiga Toxin Assay EIA Negative for Shiga Toxin 1 EIA Negative for Shiga Toxin 2 [facility] Stool 06/07/2024 9:00 AM EDT 06/07/2024 1:32 PM EDT Narrative Resulting Agency Comment Spec In Lab Marcelle Weinberg JAVA LEAD ENGINEER MICROBIOLOGY - GE NERAL ORDERABLES Performing Organization Address [facility] Co de Phone Number [facility] [place] [address] * Stool culture (06/07/2024 9:00 AM EDT) Pathologist [facility] Stool Culture No enteric pathogens isolated [facility] Stool 06/07/2024 9:00 AM EDT 06/07/2024 1:32 PM EDT Narrative Resulting Agency Comment Spec In Lab Marcelle Weinberg JAVA LEAD ENGINEER MICROBIOLOGY - GE NERAL ORDERABLES Performing Organization Address [facility] Co de Phone Number [facility] [place] [address] * C. Difficile Screen (06/06/2024 5:30 PM EDT) C Diff Interp Negative Negative [facility] Comment: Ag/Tox Neg C. diff?? Negative Clostridium difficile is not present in the specimen. If patient is having diarrhea suspected to be from an infectious cause, then Soap & Water Contact Precautions are still required. Stool 06/06/2024 5:30 PM EDT 06/07/2024 1:32 PM EDT Narrative Resulting Agency Comment Spec In Lab Marcelle Weinberg JAVA LEAD ENGINEER MICROBIOLOGY - GE NERAL ORDERABLES Performing Organization Address [facility] Co de Phone Number [facility] [place] [address] * (ABNORMAL) Calprotectin, Stool (06/06/2024 5:30 PM EDT) Calprotectin, Stool 112(H) <=79 mcg/g [facility] Comment: Calprotectin Concentration ? Interpretation ? < 80 mcg/g ?Normal ? 80 ? 160 mcg/g ?Borderline ? >160 mcg/g ?Elevated Stool 06/06/2024 5:30 PM EDT 06/07/2024 1:07 PM EDT Narrative Resulting Agency Comment Spec In Lab Marcelle Weinberg JAVA LEAD ENGINEER BODY FLUIDS AND S TOOLS ORDERABLES Performing Organization Address [facility] de Phone Number [facility] [place] [address] * (ABNORMAL) CRP, acute inflammation (06/06/2024 9:04 AM EDT) C-Reactive Protein 6.4(H) <=4.9 mg/L [facility] Blood 06/06/2024 9:04 AM EDT 06/06/2024 9:12 AM EDT Narrative Resulting Agency Comment Spec In Lab Marcelle Weinberg JAVA LEAD ENGINEER CHEMISTRY ORDERAB LES Performing Organization Address City/[facility]/ZIP Co de Phone Number [facility] [place] [address] * (ABNORMAL) Hemogram (06/06/2024 9:04 AM EDT) White Blood Cell 6.2 4.0 - 9.5 x10(3)/mc L [facility] Red Blood Cell 3.68(L) 4.58 - 5.54 x10(6)/mc L [facility] Hemoglobin 12.0(L) 13.7 - 16.5 g/dL [facility] Hematocrit 35.7(L) 40.5 - 48.5 % [facility] Mean Cell Volume 97.0(H) 82.9 - 93.1 fL [facility] Mean Cell Hemoglobin 32.6(H) 27.5 - 32.1 pg [facility] Mean Cell Hemoglobin Concentration 33.6 32.0 - 35.7 g/dL [facility] Platelet 168 145 - 357 x10(3)/mc L [facility] RDW Standard Deviation 46.7(H) 36.0 - 45.0 [facility] RDW coefficient of variation 13.1 11.4 - 13.8 % [facility] Mean Platelet Volume 11.3 7.6 - 12.9 [facility] NRBC% auto 0.0 % [facility] NRBC Absolute 0.000 0.000 - 0.000 x10(3)/mc L [facility] Blood 06/06/2024 9:04 AM EDT 06/06/2024 9:12 AM EDT Narrative Resulting Agency Comment Spec In Lab Marcelel Weinberg APRN HEMATOLOGY ORDERA BLES Performing Organization Address City/[facility]/ZIP Co de Phone Number [facility] [place] [address] * Differential, Automated (06/06/2024 9:04 AM EDT) Neutrophil % 70.3 % [facility] Neutrophil Absolute 4.36 1.70 - 6.10 x10(3)/[facility] Lymph % 19.7 % [facility] Lymphocytes Abs 1.2 0.9 - 3.2 x10(3)/[facility] Monocyte % 7.7 % [facility] Monocyte Abs 0.5 0.3 - 0.9 x10(3)/[facility] Eos % 1.3 % [facility] Eosinophils Abs 0.1 0.0 - 0.4 x10(3)/[facility] Basophil % 0.5 % [facility] Baso Absolute 0.0 0.0 - 0.1 x10(3)/[facility] Immature Gran % 0.50 % [facility] Comment: Immature granulocytes(IG's)percentage and absolute count will include metamyelocytes, myelocytes, and promyelocytes. Blood smears from CBCs yielding IG's will be scanned manually for concordance. If this scan disagrees with the automated IG or if promyelocytes are noted, a manual differential will be performed. Immature Gran Absolute 0.03 0.00 - 0.04 x10(3)/[facility] Blood 06/06/2024 9:04 AM EDT 06/06/2024 9:12 AM EDT Narrative Resulting Agency Comment Spec In Lab Marcelle Weinberg JAVA LEAD ENGINEER HEMATOLOGY ORDERA BLES [facility] [place] [address] * Sedimentation rate (06/06/2024 9:04 AM EDT) Pathologist [facility] Sedimentation Rate Automated 38 3 - 46 mm/hr [facility] Comment: Effective November 02, 2019 new capillary photometric technology has resulted in a change in reference ranges. It is recommended that each ESR result be reviewed with its own age appropriate reference range. Blood 06/06/2024 9:04 AM EDT 06/06/2024 9:12 AM EDT Narrative Resulting Agency Comment Spec In Lab Marcelle Dunnjeovannyjania JAVA LEAD ENGINEER HEMATOLOGY ORDERA BLES [facility] [place] [address] * Comprehensive metabolic panel (non-fasting) (06/06/2024 9:04 AM EDT) Glucose 136 65 - 199 mg/dL [facility] Comment:Diabetes: >=200 mg/d L plus symptoms Blood Urea Nitrogen 16 10 - 20 mg/dL [facility] Creatinine 1.05 0.80 - 1.50 mg/dL [facility] Sodium 144 135 - 145 mmol/L [facility] Potassium 4.2 3.5 - 5.0 mmol/L [facility] Comment: Please note: ??Patients with WBC >100,000 may have falsely elevated Potassium levels. ??For accurate Potassium quantification in these patients send serum separator tube (gold top) for subsequent determinations. ??Contact the Clinical Chemistry Laboratory if there are any questions. Chloride 107 98 - 107 mmol/L [facility] Carbon Dioxide 26 22 - 31 mmol/L [facility] Anion Gap 11 5 - 15 mmol/L [facility] Calcium 9.8 8.5 - 10.5 mg/dL [facility] Protein, Total 7.6 6.1 - 8.0 g/dL [facility] Albumin 4.1 3.2 - 5.2 g/dL [facility] Aspartate Aminotransferase 16 0 - 39 unit/L [facility] Alanine Aminotransferase 18 0 - 55 unit/L [facility] Alkaline Phosphatase 71 40 - 130 unit/L [facility] Bilirubin, Total 0.5 0.2 - 1.3 mg/dL [facility] Est Glomerular Filtration Rate 74 >=60 mL/min/1. 73 m?? [facility] Comment: This patient's estimated GFR was calculated using the 2020 CKD-EPI equation. The estimated GFR can vary from the measured GFR by up to 30% in the absence of rapidly changing kidney function. Assessment of the estimated GFR is not appropriate when creatinine concentrations are rapidly changing. For clinical situations in which a more precise estimate of GFR is necessary, consider alternative methods of GFR estimation such as a 24-hour urine creatinine clearance. Assignment of CKD stage 1-5 for patients with an eGFR near the transition point between stages may be based on clinical assessment of muscle mass and symptoms in addition to eGFR. Blood 06/06/2024 9:04 AM EDT 06/06/2024 9:12 AM EDT Narrative Resulting Agency Comment Spec In Lab Marcelle Weinberg JAVA LEAD ENGINEER CHEMISTRY ORDERAB LES Performing Organization Address City/State/[facility] Co de Phone Number [facility] [place] [address] * COLONOSCOPY (01/20/2024 10:01 AM EST) COLONOSCOPY [facility] Endoscopy Procedure Date: 01/20/2024 10:01 AM ? Patient Name: Brian Rodriguez ? Date of : 1950 ? Age: 73 ? Order #: [id number] ? Instrument Name: [id number] ? Procedure: ? Colonoscopy Indications: ? Follow-up of left-sided chronic ? ulcerative colitis Providers: ? Anthony Hamlin, Danyell Doyle, ? Marcos Friedman Referring MD: ?Davina Cárdenas ? MD Cain Medicines: ? Midazolam 4 mg IV, Fentanyl 200 ? micrograms IV Complications: ? No immediate complications. Procedure: ? Pre-Anesthesia Assessment: ? - Prior to the procedure, a History ? and Physical was performed, and ? patient medications and allergies ? were reviewed. The patient is ? competent. The risks and benefits ? of the procedure and the sedation ? options and risks were discussed ? with the patient. All questions ? were answered and informed consent ? was obtained. Patient ? identification and proposed ? procedure were verified by the ? physician, the nurse and the ? sales technician home theater in the pre-procedure ? area in the procedure room. Mental ? Status Examination: alert and ? oriented. Airway Examination: ? normal oropharyngeal airway and ? neck mobility. Respiratory ? Examination: clear to auscultation. ? CV Examination: normal. ? Prophylactic Antibiotics: The ? patient does not require ? prophylactic antibiotics. Prior ? Anticoagulants: The patient has ? taken no anticoagulant or ? antiplatelet agents. ASA Grade ? Assessment: II - A patient with ? mild systemic disease. After ? reviewing the risks and benefits, ? the patient was deemed in ? satisfactory condition to undergo ? the procedure. The anesthesia plan ? was to use moderate sedation / ? analgesia (conscious sedation). ? Immediately prior to administration ? of medications, the patient was ? re-assessed for adequacy to receive ? sedatives. The heart rate, ? respiratory rate, oxygen ? saturations, blood pressure, ? adequacy of pulmonary ventilation, ? and response to care were monitored ? throughout the procedure. The ? physical status of the patient was ? re-assessed after the procedure. ? The procedure, indications, ? benefits, risks and alternatives ? were explained to the patient. ? Specifically discussed were ? potential complications including, ? but not limited to, bleeding, ? perforation, infection, missing a ? cancer, and adverse medication ? reactions. The patient was placed ? in the left lateral decubitus ? position, and a digital rectal exam ? was performed. The Colonoscope was ? inserted in the anus and under ? direct visualization, advanced to ? the terminal ileum, with ? identification of the appendiceal ? orifice and IC valve. Careful ? inspection was made as the ? colonoscope was withdrawn. The ? colonoscopy was performed without ? difficulty. The patient tolerated ? the procedure well. The quality of ? the bowel preparation was adequate. ? The terminal ileum, ileocecal ? valve, appendiceal orifice, and ? rectum were photographed. 23 minute ? withdrawal time. ? Findings: ? The perianal and digital rectal examinations were ? normal. ? The terminal ileum appeared normal. ? Few descending colon pseudopolyps. ? Inflammation in the sigmoid and rectum from 15-cm to ? 30-cm, characterized by pinpoint erosions, decreased ? vascular pattern, adherent mucus and patchy erythema ? (Calvo 1). Biopsied. Otherwise normal mucosa in the ? rectum, descending colon (biopsied), transverse colon ? (biopsied), and cecum / ascending colon (biopsied, ? right colon). ? Three sessile polyps were found in the transverse ? colon (x2) and ascending colon. The polyps were 5 to ? 7 mm in size. These polyps were removed with a cold ? snare. Resection and retrieval were complete. ? Multiple diverticula were found in the sigmoid colon, ? descending colon, transverse colon and ascending ? colon. ? Internal hemorrhoids were found. ? Moderate Sedation: ? Moderate (conscious) sedation was administered by the ? nurse and supervised by the endoscopist. The ? following parameters were monitored: oxygen ? saturation, heart rate, blood pressure, and response ? to care. Impression: ?- The examined portion of the ileum ? was normal. ? - Calvo 1 inflammation in the rectum ? and sigmoid colon from 15 to 30 cm. ? Biopsied. Remainder of colon ? normal, non-targeted biopsies ? obtained (right colon, transverse ? colon, descending colon) ? - Few descending colon ? pseudopolyps, all <5-mm diameter ? - Three 5 to 7 mm polyps in the ? transverse colon and in the ? ascending colon, removed with a ? cold snare. Resected and retrieved. ? - Diverticulosis in the sigmoid ? colon, in the descending colon, in ? the transverse colon and in the ? ascending colon. ? - Internal hemorrhoids. Recommendation: ?- Patient has a contact number ? available for emergencies. The ? signs and symptoms of potential ? delayed complications were ? discussed with the patient. Return ? to normal activities tomorrow. ? Written discharge instructions were ? provided to the patient. ? - Await pathology ? - Continue mesalamine ? - Discuss management with Dr. Barlow. ? Attending Participation: ? I personally performed the entire procedure. ? _ Anthony Hamlin, 01/20/2024 10:53:48 AM Number of Addenda: 0 Note Initiated On: 01/20/2024 10:01 AM PROVATION 01/20/2024 10:0 1 AM EST Deacon Watters JAVA LEAD ENGINEER GENERAL SURGICAL O RDERABLES PROVATION * FLEXIBLE SIGMOIDOSCOPY (03/16/2012 1:15 PM EDT) FLEXIBLE SIGMOIDOSCOPY [facility] Endoscopy Patient Name: Brian Rodrigeuz ? Procedure Date: 03/16/2012 1:15 PM ? N: [id number] ? Date of : 1950 ? Age: 61 ? Order #: [id number] ? Procedure: ? Flexible Sigmoidoscopy Indications: ? pt with active UC, assess severity ? prior to entry in MTX study Providers: ? Enrico Tellez MD, April Augustine ? Cristela, RN, Kingsley Oneal, ? Control Operator Flow Coat Referring MD: ?Maximilian Fall MD Requesting Provider: Sherry Barlow Medicines: ? Fentanyl 100 micrograms IV, Midazolam ? 3 mg IV Complications: ? No immediate complications. Procedure: ? Pre-Anesthesia Assessment: ? - ASA Grade Assessment: II - A ? patient with mild systemic disease. ? The procedure, indications, benefits, ? risks and alternatives were explained ? to the patient. Specifically ? discussed were potential ? complications including, but not ? limited to, bleeding, perforation, ? infection, missing a cancer, and ? adverse medication reactions. The ? patient was placed in the left ? lateral decubitus position, and a ? digital rectal exam was performed. ? The Colonoscope was inserted in the ? and under direct visualization, ? advanced to ascending colon. Careful ? inspection was made as the scope was ? withdrawn. The flexible sigmoidoscopy ? was accomplished without difficulty. ? The patient tolerated the procedure ? well. The quality of the bowel ? preparation was good. ? Findings: ? The rectum was relatively spared of inflammation (he ? is taking enema therapy). There was mild (Calvo score ? 1) inflammation patchy from 10 cm to 25 cm in sigmoid ? colon. This was characterized by patchy submucosal ? hemorrhage mild granularity and loss of vascularity. ? There were no ulcerations, minimal friability. Bx ? obtained. ? Exam from 25 cm to ascending colon was normal ? Impression: ?Mild (Calvo score 1) left sided ? colitis to 25 cm, patchy in nature ? with sparing of rectum Recommendation: ?- Await pathology results. ? ___ Enrico Tellez MD 03/16/2012 2:03 PM ? Number of Addenda: 0 Note Initiated On: 03/16/2012 1:15 PM PROVATION 03/16/2012 1:15 PM EDT L Karthik Barlow MD GENERAL SURGICAL ORD ERABLES PROVATION from Last 3 Months or Most Recently Relevant to Health Maintenance Advance Directives * Full Code (Latest Code Status on File) Date Activated Date Inactivated Comments 03/22/2016 11:43 AM 03/23/2016 4:30 AM Question Answer Comments Does patient have capacity to make decision: Yes Care Teams Drill Press Operator Relationship Specialty Start Date End Date Deacon Watters APRN [address] [place] [address] [address] [place], [place] [id number] PCP - General Family Medicine 02/17/22
--- OUTSIDE RECORDS SUMMARY | 2024-06-29 16:02 | XMS_ITS | Encounter Summary ---
Author Organization [facility] Address [address] [place] [address] Care Team Providers Care Glost Kiln Operator Name Role Phone Maximilian Fall MD Primary Care Provider [phone] Encounter Details Date Type Department Care Team (Latest Contact Info) Description 12/31/2017 9:43 EST - 12/31/2017 23:59 EST Hospital Encounter [address] [address] Unknown, Provider, Discharge Disposition: Home or Self Care Social History Tobacco Use Types Packs/Day Years Used Date Smoking Tobacco: Never Assessed Sex and Gender Information Value Date Recorded Sex Assigned at Not on file Gender Identity Not on file Sexual Orientation Not on file documented as of this encounter Discharge Disposition Disposition Code Departure Means Destination Home or Self [facility] documented in this encounter Plan of Treatment Not on file documented as of this encounter Visit Diagnoses Not on filedocumented in this encounter Care Teams Glost Kiln Operator Relationship Specialty Start Date End Date Maximilian Fall MD PCP - General 03/18/16 documented as of this encounter
--- OUTSIDE RECORDS SUMMARY | 2024-06-29 16:02 | XMS_ITS | Encounter Summary ---
Author Organization [facility] Address [facility] [place] [address] Care Team Providers Care Plant Manager Name Role Phone Deacon Watters APRN Primary Care Provider [phone] Encounter Details Date Type Department Care Team (Latest Contact Info) Description 02/17/2024 Travel Social History Tobacco Use Types Packs/Day [...] 9:00 AM EDT [place] [address] Dion Barlow MD [facility] [place] [address] 09/01/2024 11:20 AM EDT Office Visit Dermatology at [facility] [address] [place] [address] Gómez Mercer MD [facility] [address] [place] [address] 09/21/2024 2:45 PM EDT Office Visit [place] [address] Trung Hoyos MD [facility] [place] [address] documented as of this encounter Visit Diagnoses Not on filedocumented in this encounter Care Teams Plant Manager Relationship Specialty Start Date End Date Deacon Watters, JAZMINE [address] [place] [address] [address] [place] [address] PCP - General Family Medicine 02/17/22 documented as of this encounter
--- OUTSIDE RECORDS SUMMARY | 2024-06-29 16:02 | XMS_ITS | Encounter Summary ---
Author Organization [facility] Address [address] [place] [address] Care Team Providers Care High Lift Operator Name Role Phone Maximilian Fall MD Primary Care Provider [phone] Encounter Details Date Type Department Care Team (Late st Contact Info) Description 04/10/2020 Lab Requisition [facility] Pathology & Laboratory Medicine - [address] [id number] Outr Resulting Lab, Provider Social History Tobacco [...] Procedure Name Priority Date/Time Associated Diagnosis Comments PSA TOTAL, DIAGNOSTIC Routine 04/10/2020 9:15 EDT documented in this encounter Results * PSA TOTAL, DIAGNOSTIC (04/10/2020 9:15 EDT) PSA 2.4 0.0 - 6.5 ng/mL 04/11/2020 10:46 EDT [facility] Blood VENOUS BLOOD / Unknown 04/10/2020 9:15 EDT 04/10/2020 15:53 EDT Narrative [facility] - 04/11/2020 10:46 EDT NOTE: Serum PSA concentration should not be interpreted as absolute evidence for the presence or absence of malignant disease. Assayed on Siemens ADVIA iPouritaur XPT using chemiluminescent technology.??Values obtained by using different assay methods cannot be used interchangeably. Provider Outr Resulting Lab CHEMISTRY & BLOOD GAS ORDERABLES [facility] [address] [place] [address] documented in this encounter Visit Diagnoses Not on filedocumented in this encounter Care Teams High Lift Operator Relationship Specialty Start Date End Date Maximilian Fall MD PCP - General 03/18/16 documented as of this encounter
--- OUTSIDE RECORDS SUMMARY | 2024-06-29 16:02 | XMS_ITS | Encounter Summary ---
Author Organization [facility] Address [address] [place] [address] Care Team Providers Care Animal Chiropractor Name Role Phone Sharad Mcleod MD Primary Care Provider Unavail able Encounter Details Date Type Department Care Team (Late st Contact Info) Description 10/22/2004 Results Only [facility] [address] [place] [address] Maximilian Quiroga MD [address] [place] [phone] Social History Tobacco Use Types Packs/Day Years Used Date Smoking Tobacco: Never Assessed Sex and Gender Information Value Date Recorded Sex Assigned at Not on file Gender Identity Not on file Sexual Orientation Not on file documented as of this encounter Plan of Treatment Not on file documented as of this encounter Procedures Procedure Name Priority Date/Time Associated Diagnosis Comments SURGICAL PATHOLOGY Routine 10/22/2004 0:00 EST documented in this encounter Results * SURGICAL PATHOLOGY (10/22/2004 0:00 EST) Pathology Report: SURGICAL PATHOLOGY REPORT Reports generated via electronic interface contain original data; however they are lacking the format of the original report. Caution should be taken when reading/interpreti ng unformatted reports. Name: ? NAYA RODRIGUEZ ? Accession #: ? [id number] ? : ? 1950 (Age: 54) ??M ? Collect Date: ? 10/22/2004 ? Location: ? [facility] ? Receive Date: ? 10/22/2004 ? Provider: KELLY QUIROGA MD Copy to: SHARAD MCLEOD MD ? Final Pathologic Diagnosis: ? Esophagogastric junction, biopsy: 1. ?Squamous mucosa with mild reactive changes. ??See comment. 2. ?No columnar mucosa seen. 3. ?No evidence of dysplasia. Comment: ? Reactive basal layer changes, elongation of subepithelial papillae, and focal mild capillary congestion are seen. ??Gastroesophageal reflux cannot be ruled out. ??There are no intraepithelial neutrophils or eosinophils seen in this biopsy. ??(Dr. Hair)/[facility] ?? Document reviewed and electronically signed by: Sheeba Hair MD Report ??Date: 10/23/2004 19:47 By the signature above, the attending physician certifies that he/she has personally conducted a gross and/or microscopic examination of the described specimens and rendered or confirmed the above diagnosis. Specimen(s) Received: ? Bx GE junction Clinical History: ? Dysphagia Gross Description: ? Received in Hollande's fixative labelled Rodriguez and bx GE junction is a stephen-pink irregular 0.2 x 0.2 x 0.4 cm tissue fragment. ??The specimen is submitted intact in one cassette. ?? (Dr. Terrazas-MS)/[facility] ?? End of Report JOSEPHINE ESCOTO 10/22/2004 10/22/2004 14: 58 EST Maximilian Quiroga MD PATHOLOGY ORDERABLES [facility] [address] [place] [address] documented in this encounter Visit Diagnoses Not on filedocumented in this encounter Care Teams Animal Chiropractor Relationship Specialty Start Date End Date Sharad Mcleod MD PCP - General 12/07/09 03/17/16 documented as of this encounter
--- OUTSIDE RECORDS SUMMARY | 2024-06-29 16:02 | XMS_ITS | Encounter Summary ---
Author Organization [facility] Address [address] [place] [address] Care Team Providers Care Inspector Purchased Parts Name Role Phone Maximilian Fall MD Primary Care Provider [phone] Encounter Details Date Type Department Care Team (Late st Contact Info) Description 11/10/2022 Lab Requisition [facility] Pathology & Laboratory Medicine - [address] [id number] Outr Resulting Lab, Provider Social History Tobacco [...] Comments FECAL BACTERIAL PATHOGENS BY PCR Routine 11/09/2022 10:00 EST documented in this encounter Results * FECAL BACTERIAL PATHOGENS BY PCR (11/09/2022 10:00 EST) Salmonella PCR Negative Negative 11/11/2022 0:14 EST [facility] Shigella/Enteroin vasive E. coli Negative Negative 11/11/2022 0:14 EST [facility] HN LAB CAMPYLOBACTER PCR Negative Negative 11/11/2022 0:14 EST [facility] Shiga Toxin PCR Negative Negative 2 0:14 EST [facility] Feces SPECIMEN FROM RECTUM / Unknown 11/09/2022 10:00 EST 11/10/2022 17:36 EST Provider Outr Resulting Lab MICROBIOLOGY - GENERAL ORDERABLES Performing Organization Address City/State/RUST Co de Phone Number [facility] [address] [place] [address] documented in this encounter Visit Diagnoses Not on filedocumented in this encounter Care Teams Inspector Purchased Parts Relationship Specialty Start Date End Date Maximilian Fall MD PCP - General 03/18/16 documented as of this encounter
--- OUTSIDE RECORDS SUMMARY | 2024-06-29 16:02 | XMS_ITS | Encounter Summary ---
Author Organization [facility] Address [facility] [place] [address] Care Team Providers Care Landscape Technician Name Role Phone Deacon Watters APRN Primary Care Provider [phone] Reason for Visit * Consultation (Routine) - Closed Specialty Diagnoses / Procedures Referred By Contac t Referred To Contact Dermatology Diagnoses Basal cell carcinoma (BCC), unspecified site Becca Villegas APRN [address] [place] [address] [place] [address] Kingsley Finn MD [facility] [address] [place] [address] Referral ID Status Reason Start Date Expiration Date V isits Requested Visits Authorized [id number] Closed Consult, Test & Treat PCP Updated and/or Approved 01/04/2024 01/03/2025 1 1 Encounter Details Date Type Department Care Team (Late st Contact Info) Description 01/28/2024 2:00 PM EST Office Visit Dermatology at [facility] [address] [place] [address] Kingsley Finn MD [facility] DR EDDIE SANCHEZ-DERMATOLOGY [place], [place] [id number] Basal cell carcinoma of right side of nose Social History Tobacco Use Types Packs/Day Years [...] Sign Reading Time Taken Comments Blood Pressure 148/69 01/28/2024 2:07 PM EST Pulse 69 01/28/2024 2:07 PM EST Temperature - - Respiratory Rate - - Oxygen Saturation - - Inhaled Oxygen Concentration - - Weight - - Height - - Body Mass Index - - documented in this encounter Progress Notes * Kingsley Finn MD - 01/28/2024 2:00 PM EST Images from the original note were not included. Mohs consultation and preoperative note (H&P) Patient Name: Brian Rodriguez Age: 73 y.o. Date of : 1950 Today's Date: 01/28/2024 REFERRING PROVIDER: Becca Villegas CC: Mohs micrographic surgery for treatment of a cutaneous tumor HPI: Brian Rodriguez is a 73 y.o. male presenting for biopsy-proven basal cell carcinoma, infiltrating location on the right nasal dorsum. The dermatologic preoperative information sheet was reviewed with pertinent positive and negative as below. DERMATOLOGIC PRE-OPERATIVE EVALUATION AND REVIEW OF SYSTEMS History of Mohs surgery? no If yes, have you ever had Mohs surgery with Dr. Finn? no Pacemaker/Defibrillator? no Joint replacement or other implantable devices (e.g. Cochlear implant)? If yes then when? Steel pin in right arm Do you take a blood thinner? No History of organ transplant? no History of artificial valve or stroke? no History of liver disease or bleeding disorder? no Do you have any medical problems that may affect your upcoming surgery? no Do you have any concerns regarding your upcoming surgery? Pt states he is a red head, may need more numbing We ask patients to discontinue Fish oil/Multivitamin/Vit E/?? supplements and natural medicines not prescribed by a physician 1 week prior to surgery. SOCIAL HISTORY: Makes Own Decisions Yes Hearing aid or other devices: No Relevant travel history or future plans: none Tobacco use (amount per day, type of tobacco): no Do you have any physical limitations that may affect your surgery?: yes neck, issues ALLERGIES: Allergies reviewed MEDICATIONS: Medications reviewed VITAL SIGNS: BP 148/69 Pulse 69 PHYSICAL EXAMINATION: General: patient is awake, alert, oriented and in no acute distress. Skin: Focused examination of surgical site(s) performed which shows an erythematous scar corresponding with recent biopsy site with surrounding atrophic plaque. PHYSICIAN REVIEW OF REPORTS, RECORDS, IMAGES: 1) The accompanying pathology report(s) associated with aforementioned biopsy slide(s) were/was also reviewed. Assessment: Brian Rodriguez is a 73 y.o. male presenting for: 1. Biopsy-proven basal cell carcinoma, infiltrating located on the right nasal dorsum. Plan: 1. Findings from the biopsy report, my independent review of the histopathology from the biopsy slides, today's clinical exam, and other pertinent details were reviewed with patient today. All questions were answered. 2. Discussed treatment options based on the above findings. We recommended Mohs micrographic surgery for treatment of this tumor. Mohs micrographic surgery was indicated due to patient, site and/or tumor characteristics (see operative report for specific indication). 3. We discussed risks, benefits, and alternative treatment options to the Mohs micrographic surgeryprocedure and pertinent information including but not limited to the following: Risks include bleeding, infection, scar, recurrence, incomplete tumor removal or inability to cure with surgery alone if the tumor features are more aggressive than the initial pathology indicates. Occasionally, additional adjuvant treatments may be recommended. Additional risks include large wound, prolonged wound and healing, pain, swelling, bruising, increased appearance of vessels or worsening erythema of baseline skin; more rarely risks include damage to underlying structures such as nerves, cartilage, or muscle which could lead to temporary or permanent loss of sensation or motor function. Benefit is precise tumor removal If reconstruction is performed, it is specific to the patient and defect. Discussed that the shape, size, depth of the wound is often not known until the tumor is cleared and thus the reconstruction options are sometimes not known until after tumor clearance. Occasionally,referrals to other providers may be recommended for reconstruction based on patient preference and need. Reviewed the pros and cons of common reconstructions used for this tumor type, size, and location, and that reconstruction may lead to change in appearance. Natural history of scar was discussed, including that the scar will continue to mature for 1-2 years. Recommended avoidance of special ointments or scar creams, and avoidance of direct sun exposure to the scar for optimal recovery. Reviewed that there are some aspects of cosmesis that are dependent on patient's characteristics such as age, skin laxity/texture factors, inflammatory skin diseases such as rosacea, prior surgery/radiation, degree of actinic damage, smoking status, strength of the patient's immune system, diligentwound care, medications, and genetics. Having Mohs surgery may lead to physical limitations for optimal healing, such as restricted physical activity and heavy lifting. 4. Signs and symptoms of skin cancer reviewed. Patient to report any new, changing, or symptomatic lesions and follow up with his or her volleyball commentator or other skin provider. 5. Discussed avoiding direct sun exposure to scars for best cosmetic result. Kingsley Finn MD PhD Mohs Micrographic Surgery and Dermatologic Oncology Section of Dermatology, Department of Surgery Note initiated by Barbara Platt CMA. Barbara Platt CMA has performed the documentation for this encounter in the presence of and acting as a scribe for Dr. Finn I performed the above scribed service and agree with the accuracy of the documentation in this encounter. Reviewed and signed by: Kingsley Finn Dermatology [facility] documented in this encounter Plan of Treatment Upcoming Encounters Date Type Department Care Team (Late st Contact Info) Description 08/15/2024 9:00 AM EDT Office [place] [address] Dion Barlow MD [facility] [place] [address] 09/01/2024 11:20 AM EDT Office Visit Dermatology at [facility] [address] [place] [address] Gómez Mercer MD [facility] [address] [address] 09/21/2024 2:45 PM EDT Office Visit [facility] [place] [address] Trung Hoyos MD [facility] [address] Scheduled Referrals Name Type Priority Associated Diagnoses Orde r Schedule Referral to Dermatology Outpatient Referral Routine Basal cell carcinoma (BCC), unspecified site Ordered: 01/04/2024 documented as of this encounter Visit Diagnoses Diagnosis Basal cell carcinoma of right side of nose Basal cell carcinoma of skin of other and unspecified parts of face documented in this encounter Care Teams Landscape Technician Relationship Specialty Start Date End Date Deacon Watters, SUPERVISOR/PORT DIRECTOR [address] [place] [address] PCP - General Family Medicine 02/17/22 documented as of this encounter
--- OUTSIDE RECORDS SUMMARY | 2024-06-29 16:02 | XMS_ITS | Encounter Summary ---
Author Organization [facility] Address [facility] [place] [address] Care Team Providers Care Window Sash Installer Name Role Phone Deacon Watters APRN Primary Care Provider [phone] Encounter Details Date Type Department Care Team (Latest Contact Info) Description 06/06/2024 Travel Social History Tobacco Use Types Packs/Day [...] 9:00 AM EDT Office [place] [address] Dion Barlow MD [facility] [place] [address] 09/01/2024 11:20 AM EDT Office Visit Dermatology at [facility] [address] [place] [address] Gómez Mercer MD [facility] DR EDD[address] [place] [address] 09/21/2024 2:45 PM EDT Office Visit [facility] [place] [address] Trung Hoyos MD [facility] [place] [address] documented as of this encounter Visit Diagnoses Not on filedocumented in this encounter Care Teams Window Sash Installer Relationship Specialty Start Date End Date Deacon Watters, JAZMINE [address] [place] [address] [address] [place] [address] PCP - General Family Medicine 02/17/22 documented as of this encounter
--- OUTSIDE RECORDS SUMMARY | 2024-06-29 16:02 | XMS_ITS | Encounter Summary ---
Author Organization [facility] Address [facility] [place] [address] Care Team Providers Care Muck Boss Name Role Phone Deacon Watters APRN Primary Care Provider +1- [phone] Reason for Visit * Reason Comments Basal Cell Carcinoma Encounter Details Date Type Department Care Team (Latest Contact Info) Description 02/17/2024 7:45 AM EDT Clinical Support Dermatology at [facility] [address] [place] [address] Kingsley Finn MD [facility] [address] EDD[address] [place] [address] Basal cell carcinoma of right side of [...] as of this encounter Progress Notes * Zuly Morales RN - 02/17/2024 7:45 AM EDT Mohs consultation and preoperative note (H&P) Patient Name: Brian Rodriguez Age: 73 y.o. Date of : 1950 Today's Date: 02/17/2024 REFERRING PROVIDER: Becca Villegas CC: Mohs micrographic surgery for treatment of a cutaneous tumor HPI: Brian Rodriguez is a 73 y.o. male presenting for biopsy-proven basal cell carcinoma, infiltrative type, location on the right nasal dorsum. The dermatologic preoperative information sheet was reviewedwith pertinent positive and negative as below. DERMATOLOGIC PRE-OPERATIVE EVALUATION AND REVIEW OF SYSTEMS History of Mohs surgery? no Pacemaker/Defibrillator? no Joint replacement or other implantable devices (e.g. Cochlear implant)? If yes then when? steel pin in right arm Do you take a blood thinner? No History of organ transplant? no History of artificial valve or stroke? no History of liver disease or bleeding disorder? no Do you have any medical problems that may affect your upcoming surgery? no Do you have any concerns regarding your upcoming surgery? Pt states he is a red head, may need morenumbing SOCIAL HISTORY: Makes Own Decisions: Yes Hearing aid or other devices: No Relevant travel history or future plans: none Tobacco use (amount per day, type of tobacco): no Do you have any physical limitations that may affect your surgery?: yes neck, issues ALLERGIES: Allergies reviewed MEDICATIONS: Medications reviewed documented in this encounter Plan of Treatment Upcoming Encounters Date Type Department Care Team (Late st Contact Info) Description 08/15/2024 9:00 AM EDT Office [place] [address] Dion Barlow MD [facility] [place] [address] 09/01/2024 11:20 AM EDT Office Visit Dermatology at [facility] [address] [place] [phone] Gómez Mercer MD [facility] [address] EDDIE [place] [address] 09/21/2024 2:45 PM EDT Office Visit [facility] [place] [address] Trung Hoyos MD [facility] [place] [address] documented as of this encounter Visit Diagnoses Diagnosis Basal cell carcinoma of right side of nose Basal cell carcinoma of skin of other and unspecified parts of face documented in this encounter Care Teams Muck Boss Relationship Specialty Start Date End Date Deacon Watters, BARREL CENTERER [address] [place] [address] PCP - General Family Medicine 02/17/22 documented as of this encounter
--- OUTSIDE RECORDS SUMMARY | 2024-06-29 16:02 | XMS_ITS | Encounter Summary ---
Author Organization [facility] Address [facility] [place] [address] Care Team Providers Care Cocoa Room Operator Name Role Phone Deacon Watters APRN Primary Care Provider +1- [phone] Encounter Details Date Type Department Care Team (Latest Contact Info) Description 04/06/2024 Travel Social History Tobacco Use Types Packs/Day [...] 9:00 AM EDT Office [place] [address] Dion Barlow MD [facility] [place] [address] 09/01/2024 11:20 AM EDT Office Visit Dermatology at [facility] [address] [place] [address] Gómez Mercer MD [facility] DR ED[place] [address] 09/21/2024 2:45 PM EDT Office Visit [facility] [place] [address] Trung Hoyos MD [facility] [place] [address] documented as of this encounter Visit Diagnoses Not on filedocumented in this encounter Care Teams Cocoa Room Operator Relationship Specialty Start Date End Date Deacon Watters, JAZMINE [address] [place] [address] [address] [place] [address] PCP - General Family Medicine 02/17/22 documented as of this encounter
--- OUTSIDE RECORDS SUMMARY | 2024-06-29 16:02 | XMS_ITS | Encounter Summary ---
Author Organization [facility] [place] [address] Care Team Providers Care Reference Services Head Name Role Phone Deacno Watters APRN Primary Care Provider +1- [phone] Encounter Details Date Type Department Care Team (Late st Contact Info) Description 06/06/2024 Telephone [place] [phone] Marcelle Weinberg MEDICAL SCREENER [facility] [place] [address] Social History Tobacco Use Types Packs/Day Years [...] on file documented as of this encounter Miscellaneous Notes * Telephone Encounter - Marcelle Weinberg APRN - 06/06/2024 11:28 AM EDT I called Brian and reviewed his labs. Anemia- stable. Mildly elevated CRP, but ESR normal. Needs to submit stool studies. Will continue plans as discussed today in clinic. Latest Reference Range & Units 06/06/24 09:04 WBC 4.0 - 9.5 x10(3)/mcL 6.2 RBC 4.58 - 5.54 x10(6)/mcL 3.68 (L) Hemoglobin 13.7 - 16.5 g/dL 12.0 (L) Hematocrit 40.5 - 48.5 % 35.7 (L) MCV 82.9 - 93.1 fL 97.0 (H) MCH 27.5 - 32.1 pg 32.6 (H) MCHC 32.0 - 35.7 g/dL 33.6 RDWSD 36.0 - 45.0 fL 46.7 (H) RDWCV 11.4 - 13.8 % 13.1 Platelets 145 - 357 x10(3)/mcL 168 MPV 7.6 - 12.9 fL 11.3 nRBC % Auto % 0.0 nRBC Abs Auto 0.000 - 0.000 x10(3)/mcL 0.000 Neutr Abs (ANC) 1.70 - 6.10 x10(3)/mcL 4.36 Neutrophils % % 70.3 Immature Gran % % 0.50 Lymphocytes % % 19.7 Monocytes % % 7.7 Eosinophils % % 1.3 Basophils % % 0.5 Sherry Gran Abs 0.00 - 0.04 x10(3)/mcL 0.03 Lymphocytes Abs 0.9 - 3.2 x10(3)/mcL 1.2 Monocyte Abs 0.3 - 0.9 x10(3)/mcL 0.5 Eosinophils Abs 0.0 - 0.4 x10(3)/mcL 0.1 Basophils Abs 0.0 - 0.1 x10(3)/mcL 0.0 Sed Rate 3 - 46 mm/hr 38 Sodium 135 - 145 mmol/L 144 Potassium 3.5 - 5.0 mmol/L 4.2 Chloride 98 - 107 mmol/L 107 CO2 22 - 31 mmol/L 26 Anion Gap 5 - 15 mmol/L 11 BUN 10 - 20 mg/dL 16 Creatinine 0.80 - 1.50 mg/dL 1.05 Estimated GFR >=60 mL/min/1.73 m?? 74 Calcium 8.5 - 10.5 mg/dL 9.8 Glucose Lvl 65 - 199 mg/dL 136 Total Protein 6.1 - 8.0 g/dL 7.6 Albumin 3.2 - 5.2 g/dL 4.1 Total Bilirubin 0.2 - 1.3 mg/dL 0.5 Alk Phos 40 - 130 unit/L 71 AST 0 - 39 unit/L 16 ALT 0 - 55 unit/L 18 CRP <=4.9 mg/L 6.4 (H) (L): Data is abnormally low (H): Data is abnormally high documented in this encounter Plan of Treatment Upcoming Encounters Date Type Department Care Team (Late st Contact Info) Description 08/15/2024 9:00 AM EDT Office Visit Gastroenterology at [place] [phone] Dion Barlow MD [facility] [place] [address] 09/01/2024 11:20 AM EDT Office Visit Dermatology at [place] [address] [place] [phone] Gómez Mercer MD [facility] DR [place] [address] 09/21/2024 2:45 PM EDT Office Visit [facility] [place] [address] Trung Hoyos MD [facility] [place] [address] documented as of this encounter Visit Diagnoses Not on filedocumented in this encounter Care Teams Reference Services Head Relationship Specialty Start Date End Date Deacon Watters APRN [address] [place] [address] PCP - General Family Medicine 02/17/22 documented as of this encounter
--- OUTSIDE RECORDS SUMMARY | 2024-06-29 16:02 | XMS_ITS | Encounter Summary ---
Author Organization Replaced By [facility] Address [facility] [place] [address] Care Team Providers Care Near [employer] Lecturer Name Role Phone Deacon Watters APRN Primary Care Provider [phone] Encounter Details Date Type Department Care Team (Latest Contact Info) Description 06/06/2024 8:00 AM EDT Office [place] [address] Marcelle Weinberg RHINESTONE SETTER [facility] [place] [address] Left sided colitis without complications Social History Tobacco Use Types Packs/Day Years [...] Pulse 62 06/06/2024 7:48 AM EDT Temperature - - Respiratory Rate - - Oxygen Saturation 100% 06/06/2024 7:48 AM EDT Inhaled Oxygen Concentration - - Weight 114.6 kg (252 lb 9.6 oz) 06/06/2024 7:48 AM EDT Height 193 cm (6' 4) 06/06/2024 7:48 AM EDT Body Mass Index 30.75 06/06/2024 7:48 AM EDT documented in this encounter Patient Instructions * Patient Instructions* Marcelle Weinberg APRN - 06/06/2024 8:00 AM EDT - Continue sulfasalazine 3 tablets twice per day - Increased ( Budesonide) rectal foam every night x 4 weeks; If better, go back down to every othernight x4 weeks; 3x/week x 4 weeks; 2x per week x 4 weeks then stop as tolerated. - If symptoms worsens, please let us know. - Continue Dicyclomine, one tablet three times per day as you need for cramping - Repeat routine labs today( [facility] and submit stool calprotectin ( [facility]). - Follow up with Dermatology regarding skin rash on your groin. - Follow up with Dr. Barlow in 4 months documented in this encounter Progress Notes * Marcelle Weinberg APRN - 06/06/2024 8:00 AM EDT Primary care provider: Deacon Watters APRN Other providers: Dr. Barlow Reason for visit: Ulcerative colitis f/u Patient Active Problem List Diagnosis Ulcerative colitis Overview Note: Colonoscopy 04/08/10 (Dr. Gomes [facility]) - inflammation only within the rectum and sigmoid; extent of the exam was to the hepatic flexure; biopsies proximal to the sigmoid nl Repeat exam 11/27/11 ([facility] mildly active colitis in the sigmoid colon [...] ascending colon. Several HPs and one TA. [place] 03/2022 - Calvo 1 limited to rectosigmoid, diverticulosis. No dysplasia TREATMENT: cortenemas, Asacol, Rowasa, prednisone, and imodium [place]land 12/2023- Ileum was normal. Calvo 1 inflammation in the rectum and sigmoid colon from 15 to 30 cm. Remainder of colon normal. Few descending colon pseudopolyps, all <5-mm diameter. Three 5 to 7 mm polyps in the transverse colon and in the ascending colon, removed with a cold snare. Diverticulosis in the sigmoid colon, in the descending colon, in the transverse colon and in the ascending colon. Internal hemorrhoids. Biopsies: Right colon, Transverse, Descending colon: Colonic mucosa, negative for diagnostic abnormality. Ascending colon polyp: Inflammatory polyp. Transverse colon polyps: Fragments of hyperplastic polyp. Recto sigmoid : Moderately active chronic colitis, negative for dysplasia. Anemia Overview Note: Mild B12, iron all nl 2020 Diabetes mellitus Hearing loss GERD (gastroesophageal reflux disease) Overview Note: Hydrocele Asthma CURRENT IBD MEDS: Sulfasalazine 3 tabs bid INTERVAL HISTORY: Mr. Rodriguez follows up for ulcerative colitis. Last visit with Dr. Barlow 11/2023 On Sulfasalazine 3 tablets twice per day and rectal foam every other night. Initially was doing well and able to come down on the Budesonide foam enema to 2x/week. But symptoms got worse and he went back to every other night, 3 weeks ago. Just today symptoms not as bad. Having BM once this morning so far, semi- soft stool, no bleeding and mild crampy Yesterday went 6x, was having a of cramps. 6 months ago developed skin rash on both groin. Not itchy and not painful. He was in touch with hisPCP and given Triamcilonone cream, but not helpful. Seen his eye MD and found a spot on his left eye, with plans to get imaging Review of systems as in the HPI, the rest of the review of systems were negative. Past Medical History, Social History and Family History is unchanged. Medications Outpatient Encounter Medications as of 06/06/2024 Medication Sig Dispense Refill mupirocin (Bactroban) 2 % Ointment Apply topically once daily for 10 days to healing graft area. 22g 0 dicyclomine (Bentyl) 20 mg tablet TAKE ONE TABLET BY MOUTH EVERY 8 HOURS NEEDED 90 tablet 5 budesonide (Uceris) 2 mg/actuation Foam 2mg rectally nightly for 2 weeks, then continue every othernight (four nights per week) 133.6 g 5 sulfaSALAzine (Azulfidine) 500 mg tablet Take 3 tablets by mouth 2 times daily. 540 tablet 3 metroNIDAZOLE (FlagyL) 500 mg Tablet Take 1 tablet by mouth 2 times daily. 20 tablet 0 atorvastatin (Lipitor) 20 mg Tablet Take 20 mg by mouth daily. nystatin (Mycostatin) 100,000 unit/mL Suspension Place 500,000 Units inside cheek. sulfamethoxazole-trimethoprim DS (Bactrim DS) 800-160 mg Tablet Take 1 tablet by mouth. SUMAtriptan (Imitrex) 50 mg Tablet TAKE 1 TABLET BY MOUTH 1 TIME NEEDED FOR MIGRAINE HEADACHE gabapentin (Neurontin) 300 mg Capsule Take 300 mg by mouth daily as needed. losartan (Cozaar) 50 mg Tablet Take 100 mg by mouth daily. albuterol 90 mcg/actuation HFA Aerosol Inhaler Inhale 2 puffs into the lungs every 4 hours as needed for Wheezing. Use with spacer DOT SCOTT U-100 INSULIN 100 unit/mL (3 mL) pen Inject 70 Units subcutaneously. 0 propranolol (INDERAL LA) 80 mg Capsule,Sustained Action 24 hr take 2 capsules by mouth daily for MIGRAINE PROPHYLAXIS 0 lisinopril (PRINIVIL;ZESTRIL) 10 mg Tablet take 1 tablet by mouth once daily 0 metFORMIN (GLUCOPHAGE) 1,000 mg Tablet Take 500 mg by mouth daily. 0 tamsulosin (FLOMAX) 0.4 mg Capsule, Sust. Release 24 hr Take 0.8 mg by mouth daily. glipiZIDE (GLUCOTROL) 10 mg 24 hr tablet Take 10 mg by mouth daily. folic acid (FOLVITE) 1 mg tablet Take 1 tablet by mouth daily. 90 tablet 3 omeprazole (PRILOSEC) 20 mg capsule Take 40 mg by mouth daily. No facility-administered encounter medications on file as of 06/06/2024. Allergies/Adverse reactions Erythromycin base, Jardiance [empagliflozin], and Tetracyclines Physical Examination Patient appears well Wt Readings from Last 3 Encounters: 04/06/24 109.8 kg (242 lb) 01/20/24 109.8 kg (242 lb) 01/07/24 114.7 kg (252 lb 14.4 oz) Vitals: 06/06/24 0748 BP: 152/70 Pulse: 62 SpO2: 100% Weight: 114.6 kg (252 lb 9.6 oz) Height: 193 cm (6' 4) Heart: regular Resp: CTA Abd: normal BS, soft/nontender diffusely, no masses, no hepatomegaly, no splenomegaly Skin: Right Groin with erythematous skin rash. Left groin, small area of red rash. No papules Non tender. Recent labs No visits with results within 3 Month(s) from this visit. Latest known visit with results is: Admission on 01/20/2024, Discharged on 01/20/2024 Component Date Value Ref Range Status POC Glucose 01/20/2024 114 60 - 199 mg/dl Final POC Glucose 01/20/2024 114 65 - 199 mg/dL Final COLONOSCOPY 01/20/2024 Final Value:[facility] Endoscopy Procedure Date: 01/20/2024 10:01 AM Patient Name: Brian Rodriguez Date of : 1950 Age: 73 Order #: [id number] Instrument Name: [id number] Procedure: Colonoscopy Indications: Follow-up of left-sided chronic ulcerative colitis Providers: Danyell Schwartz James A. Fischer Referring MD: Davina Cárdenas MD Medicines: Midazolam 4 mg IV, Fentanyl 200 micrograms IV Complications: No immediate complications. Procedure: Pre-Anesthesia Assessment: - Prior to the procedure, a History and Physical was performed, and patient medications and allergies were reviewed. The patient is competent. The risks and benefits of the procedure and the sedation options and risks were discussed with the patient. All questions were answered and informed consent was obtained. Patient identification and proposed procedure were verified by the physician, the nurse and the vein access technician in the pre-procedure area in the procedure room. Mental Status Examination: alert and oriented. Airway Examination: normal oropharyngeal airway and neck mobility. Respiratory Examination: clear to auscultation. CV Examination: normal. Prophylactic Antibiotics: The patient does not require prophylactic antibiotics. Prior Anticoagulants: The patient has taken no anticoagulant or antiplatelet agents. ASA Grade Assessment: II - A patient with mild systemic disease. After reviewing the risks and benefits, the patient was deemed in satisfactory condition to undergo the procedure. The anesthesia plan was to use moderate sedation / analgesia (conscious sedation). Immediately prior to administration of medications, the patient was re-assessed for adequacy to receive sedatives. The heart rate, respiratory rate, oxygen saturations, blood pressure, adequacy of pulmonary ventilation, and response to care were monitored throughout the procedure. The physical status of the patient was re-assessed after the procedure. The procedure, indications, benefits, risks and alternatives were explained to the patient. Specifically discussed were potential complications including, but not limited to, bleeding, perforation, infection, missing a cancer, and adverse medication reactions. The patient was placed in the left lateral decubitus position, and a digital rectal exam was performed. The Colonoscope was inserted in the anus and under direct visualization, advanced to the terminal ileum, with identification of the appendiceal orifice and IC valve. Careful inspection was made as the colonoscope was withdrawn. The colonoscopy was performed without difficulty. The patient tolerated the p rocedure well. The quality of the bowel preparation was adequate. The terminal ileum, ileocecal valve, appendiceal orifice, and rectum were photographed. 23 minute withdrawal time. Findings: The perianal and digital rectal examinations were normal. The terminal ileum appeared normal. Few descending colon pseudopolyps. Inflammation in the sigmoid and rectum from 15-cm to 30-cm, characterized by pinpoint erosions, decreased vascular pattern, adherent mucus and patchy erythema (Calvo 1). Biopsied. Otherwise normal mucosa in the rectum, descending colon (biopsied), transverse colon (biopsied), and cecum / ascending colon (biopsied, right colon). Three sessile polyps were found in the transverse colon (x2) and ascending co iadan. The polyps were 5 to 7 mm in size. These polyps were removed with a cold snare. Resection and retrieval were complete. Multiple diverticula were found in the sigmoid colon, descending colon, transverse colon and ascending colon. Internal hemorrhoids were found. Moderate Sedation: Moderate (conscious) sedation was administered by the nurse and supervised by the endoscopist. The following parameters were monitored: oxygen saturation, heart rate, blood pressure, and response to care. Impression: - The examined portion of the ileum was normal. - Calvo 1 inflammation in the rectum and sigmoid colon from 15 to 30 cm. Biopsied. Remainder of colon normal, non-targeted biopsies obtained (right colo n, transverse colon, descending colon) - Few descending colon pseudopolyps, all <5-mm diameter - Three 5 to 7 mm polyps in the transverse colon and in the ascending colon, removed with a cold snare. Resected and retrieved. - Diverticulosis in the sigmoid colon, in the descending colon, in the transverse colon and in the ascending colon. - Internal hemorrhoids. Recommendation: - Patient has a contact number available for emergencies. The signs and symptoms of potential delayed complications were discussed with the patient. Return to normal activities tomorrow. Written discharge instructions were provided to the patient. - Await pathology - Continue mesalamine - Discuss management with Dr. Barlow. Attending Participation: I personally performed the entire procedure. Anthony Hamlin, 01/20/2024 10:53:48 AM Number of Addenda: 0 Note Initiated On: 01/20/2024 10:01 AM Surgical Pathology Report 01/20/2024 Final Value:[id number] Location: 4T; EA12; A The signing pathologist has (i) examined the relevant preparation(s) for the specimen(s) and (ii) rendered or confirmed the diagnosis(es). . Surgical Pathology DIAGNOSIS A - Right colon, biopsy (Multiple): - Colonic mucosa, negative for diagnostic abnormality. B - Ascending colon polyp, biopsy: - Inflammatory polyp. C - Transverse colon, biopsy (Multiple): - Colonic mucosa, negative for diagnostic abnormality. D - Transverse colon polyps, biopsy: - Fragments of hyperplastic polyp. E - Descending colon, biopsy (Multiple): - Colonic mucosa, negative for diagnostic abnormality. F - Recto sigmoid, biopsy (Multiple): - Moderately active chronic colitis, negative for dysplasia. CR-PX Electronically signed by: Dilip Maria MD Verified: 01/29/2024 12:04 Pathologist Performed at: -[facility] Dept. of Pathology, [facility] [address], [place], [facility] Supervisor: Joana Soler MD, FCAP, CLIA Certificate: [id number] SPECIMEN(S) SUBMITTED A - right colon, biopsy (Multiple) B - Ascending colon polyp, biopsy (1) C - Transverse colon, biopsy (Multiple) D - transverse colon polyps, biopsy (2) E - Descending colon, biopsy (Multiple) F - Recto sigmoid, biopsy (Multiple) CLINICAL INFORMATION 73-year-old male surveillance colonoscopy for history of Crohn's SPECIMEN PROCESSING A - Labeled/Fixative: Right colon, formalin. Quantity/Size: Five, ranging from 0.3 to 0.5 cm. Tissue Description: Soft, pink tissues. Sections/Processing: Submitted in toto in 1 cassette labeled A1. B - Labeled/Fixative: Ascending colon polyp, formalin. Quantity/Size: Single, 1.4 x 0.9 x 0.1 cm. Tissue Description: Soft, pink tissue. Sections/Processing: Quadrisected and entirely submitted in 1 cassette labeled B1. . SPECIMEN PROCESSING C - Labeled/Fixative: Transverse colon, forma reggie. Quantity/Size: Three, averaging 0.4 cm. Tissue Description: Soft, pink tissues. Sections/Processing: Submitted in toto in 1 cassette labeled C1. D - Labeled/Fixative: Transverse colon polyps, formalin. Quantity/Size: Two, 0.3 x 1.3 cm. Tissue Description: Soft, stephen-pink tissues. Sections/Processing: Submitted in toto in 1 cassette labeled D1. E - Labeled/Fixative: Descending colon, formalin. Quantity/Size: Five, ranging from 0.3 to 0.8 cm. Tissue Description: Soft, pink-red tissues. Sections/Processing: Submitted in toto in 1 cassette labeled E1. F - Labeled/Fixative: Rectosigmoid, formalin. Quantity/Size: Four, averaging 0.4 cm. Tissue Description: Soft, pink tissues. Sections/Processing: Submitted in toto in 1 cassette labeled F1. sns Recent endoscopic procedures See above. Recent relevant imaging None Impression/Plan Mr. Rodriguez is a 73 y.o. patient with L-sided ulcerative colitis. On sulfasalazine 3 tablets twice per day and rectal foam every other night. Recent colonoscopy showed proctosigmoiditis. He was able to wean down on his Budesonide to 2x per week but symptoms got worse again and he went abck to every other night this past 3 weeks. This is likely due to active disease. Skin rash, groin area. Tried Triamcinolone cream without effect. Will have him see dermatology. He is also in the mist of an eye work up for a spot on his left eye , per patient. Plans: - Continue sulfasalazine 3 tablets twice per day - Increased ( Budesonide) rectal foam every night x 4 weeks; If better, go back down to every othernight x4 weeks; 3x/week x 4 weeks; 2x per week x 4 weeks then stop as tolerated. - If symptoms worsens, please let us know. - Continue Dicyclomine, one tablet three times per day as you need for cramping - Repeat routine labs today( [facility] and submit stool calprotectin ( [facility]). - Follow up with Dermatology regarding skin rash on your groin. - Follow up with Dr. Barlow in 4 months Please contact me if there are any further questions regarding the care of this patient. Shan Weinberg APRN [facility] Section of [place]enter[place] [address] documented in this encounter Plan of Treatment Upcoming Encounters Date Type Department Care Team (Late st Contact Info) Description 08/15/2024 9:00 AM EDT Office [place] [address] Dion Barlow MD [facility] [place] [address] 09/01/2024 11:20 AM EDT Office Visit Dermatology at [address] [place] [address] Gómez Mercer MD [facility] [place] [address] 09/21/2024 2:45 PM EDT Office Visit Pain [facility] Spine Center at [facility] [place] [phone] Trung Hoyos MD [facility] [address] documented as of this encounter Procedures Procedure Name Priority Date/Time Associated Diagnosis Comments CRP, ACUTE INFLAMMATION Routine 06/06/2024 9:04 AM EDT Left sided colitis without complications HEMOGRAM Routine 06/06/2024 9:04 AM EDT Left sided colitis without complications DIFFERENTIAL, AUTOMATED Routine 06/06/2024 9:04 AM EDT Left sided colitis without complications SEDIMENTATION RATE Routine 06/06/2024 9: 04 AM EDT Left sided colitis without complications CBC (WITH DIFF) Routine 06/06/2024 9:04 AM EDT Left sided colitis without complications COMPREHENSIVE METABOLIC PANEL Routine 06/06/2024 9:04 AM EDT Left sided colitis without complications documented in this encounter Results * C. Difficile Screen (06/06/2024 5:30 PM EDT) C Diff Interp Negative Negative [facility] Comment: Ag/Tox Neg C. diff?? Negative Clostridium difficile is not present in the specimen. If patient is having diarrhea suspected to be from an infectious cause, then Soap & Water Contact Precautions are still required. Stool 06/06/2024 5:30 PM EDT 06/07/2024 1:32 PM EDT Narrative Resulting Agency Comment Spec In Lab Marcelle Weinberg RHINESTONE SETTER MICROBIOLOGY - GE NERAL ORDERABLES Performing Organization Address [facility] Co de Phone Number [facility] [place] [address] * (ABNORMAL) Calprotectin, Stool (06/06/2024 5:30 PM EDT) Pathologist [facility] Calprotectin, Stool 112(H) <=79 mcg/g [facility] Comment: Calprotectin Concentration ? Interpretation ? < 80 mcg/g ?Normal ? 80 ? 160 mcg/g ?Borderline ? >160 mcg/g ?Elevated Stool 06/06/2024 5:30 PM EDT 06/07/2024 1:07 PM EDT Narrative Resulting Agency Comment Spec In Lab Marcelle Weinberg RHINESTONE SETTER BODY FLUIDS AND S TOOLS ORDERABLES Performing Organization Address [facility] de Phone Number [facility] [place] [address] * Differential, Automated (06/06/2024 9:04 AM EDT) Pathologist [facility] Neutrophil % 70.3 % [facility] Neutrophil Absolute 4.36 1.70 - 6.10 x10(3)/[facility] Lymph % 19.7 % [facility] Lymphocytes Abs 1.2 0.9 - 3.2 x10(3)/[facility] Monocyte % 7.7 % [facility] Monocyte Abs 0.5 0.3 - 0.9 x10(3)/[facility] Eos % 1.3 % [facility] Eosinophils Abs 0.1 0.0 - 0.4 x10(3)/[facility] Basophil % 0.5 % [facility] Baso Absolute 0.0 0.0 - 0.1 x10(3)/[facility] Immature Gran % 0.50 % [facility] Comment: Immature granulocytes(IG's)percentage and absolute count will include metamyelocytes, myelocytes, and promyelocytes. Blood smears from CBCs yielding IG's will be scanned manually for concordance. If this scan disagrees with the automated IG or if promyelocytes are noted, a manual differential will be performed. Immature Gran Absolute 0.03 0.00 - 0.04 x10(3)/[facility] Blood 06/06/2024 9:04 AM EDT 06/06/2024 9:12 AM EDT Narrative Resulting Agency Comment Spec In Lab Marcelle Weinberg APRN HEMATOLOGY ORDERA BLES Performing Organization Address City/State/[facility] Co de Phone Number [facility] [place] [address] * (ABNORMAL) Hemogram (06/06/2024 9:04 AM EDT) White Blood Cell 6.2 4.0 - 9.5 x10(3)/[facility] Red Blood Cell 3.68(L) 4.58 - 5.54 x10(6)/ L [facility] Hemoglobin 12.0(L) 13.7 - 16.5 g/dL [facility] Hematocrit 35.7(L) 40.5 - 48.5 % [facility] Mean Cell Volume 97.0(H) 82.9 - 93.1 fL [facility] Mean Cell Hemoglobin 32.6(H) 27.5 - 32.1 pg [facility] Mean Cell Hemoglobin Concentration 33.6 32.0 - 35.7 g/dL [facility] Platelet 168 145 - 357 x10(3)/[facility] RDW Standard Deviation 46.7(H) 36.0 - 45.0 fL [facility] RDW coefficient of variation 13.1 11.4 - 13.8 % [facility] Mean Platelet Volume 11.3 7.6 - 12.9 fL [facility] NRBC% auto 0.0 % [facility] NRBC Absolute 0.000 0.000 - 0.000 x10(3)/mc L [facility] Blood 06/06/2024 9:04 AM EDT 06/06/2024 9:12 AM EDT Narrative Resulting Agency Comment Spec In Lab Marcelle Dunnwill RHINESTONE SETTER HEMATOLOGY ORDERA BLES Performing Organization Address [facility]/ZIP Co de Phone Number [facility] [place] [address] * (ABNORMAL) CRP, acute inflammation (06/06/2024 9:04 AM EDT) C-Reactive Protein 6.4(H) <=4.9 mg/L [facility] Blood 06/06/2024 9:04 AM EDT 06/06/2024 9:12 AM EDT Narrative Resulting Agency Comment Spec In Lab Marcelle Conte Sultana RHINESTONE SETTER CHEMISTRY ORDERAB LES Performing Organization Address [facility]/ZIP Co de Phone Number [facility] [place] [address] * Sedimentation rate (06/06/2024 9:04 AM EDT) Sedimentation Rate Automated 38 3 - 46 mm/hr [facility] Comment: Effective November 02, 2019 new capillary photometric technology has resulted in a change in reference ranges. It is recommended that each ESR result be reviewed with its own age appropriate reference range. Blood 06/06/2024 9:04 AM EDT 06/06/2024 9:12 AM EDT Narrative Resulting Agency Comment Spec In Lab Marcelle Weinberg APRN HEMATOLOGY ORDERA BLES [facility] [place] [address] * Comprehensive metabolic panel (non-fasting) (06/06/2024 9:04 AM EDT) Glucose 136 65 - 199 mg/dL [facility] Comment:Diabetes: >=200 mg/d L plus symptoms Blood Urea Nitrogen 16 10 - 20 mg/dL [facility] Creatinine 1.05 0.80 - 1.50 mg/dL [facility] Sodium 144 135 - 145 mmol/L [facility] Potassium 4.2 3.5 - 5.0 mmol/L [facility] Comment: Please note: ??Patients with WBC >100,000 may have falsely elevated Potassium levels. ??For accurate Potassium quantification in these patients send serum separator tube (gold top) for subsequent determinations. ??Contact the Clinical Chemistry Laboratory if there are any questions. Chloride 107 98 - 107 mmol/L [facility] Carbon Dioxide 26 22 - 31 mmol/L [facility] Anion Gap 11 5 - 15 mmol/L [facility] [facility] Calcium 9.8 8.5 - 10.5 mg/dL [facility] Protein, Total 7.6 6.1 - 8.0 g/dL [facility] Albumin 4.1 3.2 - 5.2 g/dL [facility] Aspartate Aminotransferase 16 0 - 39 unit/L [facility] Alanine Aminotransferase 18 0 - 55 unit/L [facility] Alkaline Phosphatase 71 40 - 130 unit/L [facility] Bilirubin, Total 0.5 0.2 - 1.3 mg/dL [facility] Est Glomerular Filtration Rate 74 >=60 mL/min/1. 73 m?? [facility] Comment: This patient's estimated GFR was [...] Agency Comment Spec In Lab Marcelle Weinberg APRN CHEMISTRY ORDERAB LES [facility] [place] [address] documented in this encounter Visit Diagnoses Diagnosis Left sided colitis without complications Left sided ulcerative (chronic) colitis documented in this encounter Care Teams Near Eastern Archaeology Lecturer Relationship Specialty Start Date End Date Deacon Watters APRN [address] [place] [address] [address] [place] [address] PCP - General Family Medicine 02/17/22 documented as of this encounter
--- OUTSIDE RECORDS SUMMARY | 2024-06-29 16:02 | XMS_ITS | Encounter Summary ---
Author Organization [facility] Address [facility] [place] [address] Care Team Providers Care Measuring Machine Operator Name Role Phone Deacon Watters APRN Primary Care Provider [phone] Encounter Details Date Type Department Care Team (Latest Contact Info) Description 06/07/2024 12:55 PM EDT - 06/07/2024 11:59 PM EDT Hospital [place] [address] Left sided colitis without complications Discharge Disposition: Home Social History Tobacco Use Types Packs/Day Years [...] on file documented as of this encounter Medications at Time of Discharge Medication Sig Dispensed Refills Start Date End Date ketoconazole (Nizoral) 2 % CreamIndications:Tinea cruris Apply twice daily to affected areas on the groin 30 g 1 06/07/2024 mupirocin (Bactroban) 2 % OintmentIndications:Vis it for suture removal Apply topically once daily for 10 days to healing graft area. 22 g 03/02/2024 dicyclomine (Bentyl) 20 mg tablet TAKE ONE TABLET BY MOUTH EVERY 8 HOURS NEEDED 90 tablet 5 02/23/2024 budesonide (Uceris) 2 mg/actuation FoamIndications:Left sided colitis without complications 2mg rectally nightly for 2 weeks, then continue every other night (four nights per week) 133.6 g 5 12/07/2023 sulfaSALAzine (Azulfidine) 500 mg tablet Take 3 tablets by mouth 2 times daily. 540 tablet 3 09/21/2023 metroNIDAZOLE (FlagyL) 500 mg Tablet Take 1 tablet by mouth 2 times daily. 20 tablet 10/06/2022 atorvastatin (Lipitor) 20 mg Tablet Take 20 mg by mouth daily. nystatin (Mycostatin) 100,000 unit/mL Suspension Place 500,000 Units inside cheek. 07/08/2021 sulfamethoxazole-trimet hoprim DS (Bactrim DS) 800-160 mg Tablet Take 1 tablet by mouth. 07/19/2021 SUMAtriptan (Imitrex) 50 mg Tablet TAKE 1 TABLET BY MOUTH 1 TIME NEEDED FOR MIGRAINE HEADACHE 01/13/2022 gabapentin (Neurontin) 300 mg Capsule Take 300 mg by mouth daily as needed. 04/21/2021 losartan (Cozaar) 50 mg Tablet Take 100 mg by mouth daily. 03/10/2020 albuterol 90 mcg/actuation HFA Aerosol Inhaler Inhale 2 puffs into the lungs every 4 hours as needed for Wheezing. Use with spacer DOT SCOTT U-100 INSULIN 100 unit/mL (3 mL) pen Inject 70 Units subcutaneously. 0 04/05/2018 propranolol (INDERAL LA) 80 mg Capsule,Sustained Action 24 hr take 2 capsules by mouth daily for MIGRAINE PROPHYLAXIS 0 04/06/2017 lisinopril (PRINIVIL;ZESTRIL) 10 mg Tablet take 1 tablet by mouth once daily 0 04/07/2017 metFORMIN (GLUCOPHAGE) 1,000 mg Tablet Take 500 mg by mouth daily. 0 04/07/2017 tamsulosin (FLOMAX) 0.4 mg Capsule, Sust. Release 24 hr Take 0.8 mg by mouth daily. glipiZIDE (GLUCOTROL) 10 mg 24 hr tablet Take 10 mg by mouth daily. folic acid (FOLVITE) 1 mg tabletIndications:Ulcer ative colitis Take 1 tablet by mouth daily. 90 tablet 3 11/22/2012 omeprazole (PRILOSEC) 20 mg capsule Take 40 mg by mouth daily. documented as of this encounter Plan of Treatment Upcoming Encounters Date Type Department Care Team (Late st Contact Info) Description 08/15/2024 9:00 AM EDT Office Visit [place] [phone] Dion Barlow MD [facility] [place] [address] 09/01/2024 11:20 AM EDT Office Visit Dermatology at [place] [address] [place] [phone] Gómez Mercer MD [facility] [place] [address] 09/21/2024 2:45 PM EDT Office Visit [facility] [place] [phone] Trung Hoyos MD [facility] [place] [address] documented as of this encounter Procedures Procedure Name Priority Date/Time Associated Diagnosis Comments HC STOOL CULTURE Routine 06/07/2024 9:00 AM EDT Left sided colitis without complications CAMPYLOBACTER ANTIGEN Routine 06/07/2024 9:00 AM EDT Left sided colitis without complications SHIGA TOXIN ASSAY Routine 06/07/2024 9:0 0 AM EDT Left sided colitis without complications STOOL CULTURE Routine 06/07/2024 9:00 AM EDT Left sided colitis without complications documented in this encounter Results * Shiga Toxin Detection (06/07/2024 9:00 AM EDT) Shiga Toxin Assay EIA Negative for Shiga Toxin 1 EIA Negative for Shiga Toxin 2 [facility] Stool 06/07/2024 9:00 AM EDT 06/07/2024 1:32 PM EDT Narrative Resulting Agency Comment Spec In Lab Marcelle Weinberg REFINERY OPERATOR [employer] MICROBIOLOGY - GE NERAL ORDERABLES Performing Organization Address City/[facility]/ZIP Co de Phone Number [facility] [place] [address] * Campylobacter Antigen (06/07/2024 9:00 AM EDT) Campylobacter Ag Immunoassay Negative for Campylobacter Antigen [facility] Stool 06/07/2024 9:00 AM EDT 06/07/2024 1:32 PM EDT Narrative Resulting Agency Comment Spec In Lab Marcelle Weinberg REFINERY OPERATOR [employer]OV[employer] MICROBIOLOGY - GE NERAL ORDERABLES Performing Organization Address [facility] Co de Phone Number [facility] [place] [address] * Stool culture (06/07/2024 9:00 AM EDT) Stool Culture No enteric pathogens isolated [facility] Stool 06/07/2024 9:00 AM EDT 06/07/2024 1:32 PM EDT Narrative Resulting Agency Comment Spec In Lab Marcelle Weinberg REFINERY OPERATOR [employer]OV[employer] MICROBIOLOGY - GE NERAL ORDERABLES Performing Organization Address [facility] Co de Phone Number [facility] [place] [address] documented in this encounter Visit Diagnoses Diagnosis Left sided colitis without complications Left sided ulcerative (chronic) colitis documented in this encounter Additional Health Concerns Infection Onset Date Last Indicated Resolved Time Rule Out C. difficile 06/07/2024 06/06/20242023 2:27 PM EDT documented as of this encounter Care Teams Measuring Machine Operator Relationship Specialty Start Date End Date Deacon Watters APRN [address] [place] [address] PCP - General Family Medicine 02/17/22 documented as of this encounter
--- OUTSIDE RECORDS SUMMARY | 2024-06-29 16:02 | XMS_ITS | Encounter Summary ---
Author Organization [facility] Address [facility] [place] [address] Care Team Providers Care Blindmaker Name Role Phone Deacon Watters APRN Primary Care Provider [phone] Reason for Visit * Reason Comments Basal Cell Carcinoma Encounter Details Date Type Department Care Team (Latest Contact Info) Description 02/17/2024 8:00 AM EDT Procedure visit Dermatology at [facility] [address] [place] [address] Kingsley Finn MD [facility] DR EDDIE [place] [address] Basal cell carcinoma of right side of [...] Sign Reading Time Taken Comments Blood Pressure 178/73 02/17/2024 7:53 AM EDT Pulse 58 02/17/2024 7:53 AM EDT Temperature - - Respiratory Rate - - Oxygen Saturation - - Inhaled Oxygen Concentration - - Weight - - Height - - Body Mass Index - - documented in this encounter Patient Instructions * Patient Instructions* Zuly Morales RN - 02/17/2024 8:00 AM EDT Your staff Mohs surgeon today was Kingsley Finn MD, PhD. GRAFT CLOSURE Part of all of your wound(s) was repaired by a graft. This means that skin was removed from anotherlocation (donor site) and used to stitch the wound created by your skin cancer surgery. A graft is performed when alternative procedures such as [id number] stitching is not optimal. Your graft may be closed using all absorbable suture, sutures that need to be removed or a combination of both. Youwill be instructed upon discharge if a suture removal appointment is necessary. Caring for a graft properly is very important because the graft relies on blood supply from its newlocation to survive and heal properly. The most important thing in helping a graft heal fully is toavoid picking off any scabs, and to keep the area covered with copious amounts of topical petrolatum (such as Vaseline or Aquaphor). See specific instructions for wound care below. Things to purchase for wound care: -Nonstick gauze -A tube or tub of petrolatum jelly (fragrance-free, no dye, not lotion) -paper tape (especially if you are sensitive to adhesives) or bandages -cotton swabs -gloves (optional) -Dial or other antibacterial liquid soap Wound Care Gently remove your initial bandage after 4 days ON YOUR GRAFT. The graft will appear discolored forseveral weeks, either dark purple or pale in color. The DONOR SITE (right nasolabial fold) bandage can be removed after 4 days. Donor site was closed using sutures. This requires daily wound care of washing with soapy water, using a Q-tip apply a layer of Vaseline and a small bandage, once daily for one week, If your initial bandage(s) only stayed on for 24 hours (for example, falls off sooner), this is okay. Begin would care sooner, as below. Change your bandage once a day, or whenever it becomes wet or soaks through). You want to continue bandaging daily until your graft fully heals. This is a minimum of one week, but ideally continued until the graft has completely healed. The timeline for a graft to heal can range from 1 week to 8 weeks; you will continue wound care until healing is complete. For bandage changes: Wash hands with soap and water, or use gloves. Clean the surgical area with cotton-tipped swabs or soft gauze dipped in soapy water (recommend liquid soap in clean room temperature water). Roll the cotton swab over the incision with soapy water, then with plain water, and then gently pat dry. Do not scrub the area with a washcloth. Do not pick off scabs. Do not put direct shower water pressure onto your wound. Avoid direct water pressure fromthe shower on your graft site. It is okay to allow soapy water to run over your wound in the shower, however. If you cannot remove any bloody or crusted areas, you may soak the area with wet gauze first for 15to 20 minutes to help soften it Pat the area dry with clean gauze or cotton swabs. Do not rub. Use a cotton swab to apply a generous layer of petrolatum over the graft site. Make sure your tube or jar of petrolatum is new or unused to prevent prior contamination from entering your wound. Avoid double dipping. After applying petrolatum, use a clean nonstick gauze or other nonstick dressing, such as Telfa. This may be purchased over the counter at a drug store. Do not use regular gauze as it will stick to your wound and can peel off healing skin with bandage changes. Secure the bandage with paper tape or a bandage. Band-aids are okay, but typically have more adhesive that can irritate the skin compared to paper tape. This can be purchased at a drug store. Continue this wound care daily until the graft has healed, unless otherwise specified by your surgeon or Mohs nurse. After Surgery Avoid tobacco, smoking/vapors, cigars, and cannabis (marijuana) for at least 3 weeks after your surgery. These prevent proper healing and lead to worse scarring. Cutting back on tobacco is helpful ifyou cannot abstain completely. Limit alcohol intake to one drink per day over the next 3 days. Do not participate in athletic activities for 1 week, unless you were told a different timeline during your visit. Athletic activity is a relative term, but this is considered to be anything that could potentially raise your heartrate or blood pressure. Elevating your heart rate and blood pressure increases the risk of swelling, bleeding, wound opening, and it could lead to worse scarring. Walking at a leisurely pace is fine for most people, but not if you are walking for the purpose of exercise. When in doubt, take it easy or call us. Do not lift anything heavier than 10 pounds for the first week unless told differently. Some dyehouse worker may need to be delayed or delegated such as vacuuming, mowing the lawn, snow shoveling, or caring for young children that need to be carried/lifted. Working any major muscle groups increases your heart rate and can increasing bleeding. Avoid swimming, hot tubs, and direct water pressure for 3 weeks after surgery. You may shower, however, once your initial bandage comes off in 48 hours. Avoid antibiotic ointments such as triple antibiotic creams. Whenever possible, it is helpful to take photographs with your camera or cell phone of any problemsor concerns you see with your wound. We often ask for photos when you call with questions. Starting 2 months following surgery, you can begin firm massage to any areas of firm scar along your incision to soften the scar and reduce bumpiness. Do this 3 times per day, 3 minutes each time. Donot start massage before 2 months. Your wound will appear almost completely healed soon after sutures are removed (about 1 week), but incisions can remain bright red for several weeks. Then the scarring and healing process continues under the skin for 6 months until to 2 years. The scar may become less red, less firm, and more subtle during this time; please note that the rate of improvement varies depending on the person. Most redness, discoloration, bumpiness resolves by 6 months, and most patients will look presentable withina few weeks after surgery. Keep your follow-up appointments and make sure to continue to have your skin checked, as often as is recommended by your emergency worker, for new skin cancers. This is once per year for most patients. You can expect your scar to be red for several weeks with gradual fading of the redness. Your scar will also be raised and lumpy until the dissolvable sutures under the skin get absorbed by your bodywhich can take 3-4 months. The scar will flatten eventually. If you have a skin condition called rosacea, the redness can last long-term, or you can get an increased appearance of red vessels to the skin. The appearance of vessels slightly improves, but tends to respond well to laser treatments. Occasionally, about 10-20% of the time on the face, the stitches under the skin can spit out of the incision to the surface. It can start out looking like a pimple or blemish directly on your incision. Sometimes you can feel something poking through the incision. It can mimic a small area of infection, so please let us know before you go to another provider for antibiotics. This means that the suture may need to be trimmed or removed when you return for your wound check. This typically occurs a few weeks after surgery if it does occur. To optimize your scar, and best cosmetic result, please avoid direct sunlight to your incision for the first 6 months following surgery. UV ray exposure to your incision may cause the redness to lastlonger, or to cause permanent darkening of your scar. You can avoid sun by covering your incision with a bandage when outdoors, wearing broad-brimmed hats, and wearing SPF 30 to 50 sunscreen (broad spectrum). Your incision may still be healing up to 2 weeks after surgery. Because of this, avoid make-up and sunscreen until approximately 2 weeks after surgery. You can begin sooner if your skin edges look completely sealed. Avoid applying over graft site until it is fully healed, this may be several weeks. Any time you have skin surgery or any type of surgery, you can experience mild sensation loss (numbness) in the area of surgery. Massage starting at 8 weeks after surgery can help. Swelling and bruising is common, and expected, especially if your surgery site was on the forehead,cheeks, temples, nose, or eyelids. . Sometimes it can be quite profound, where the eyelids swell shut, or getting black eyes. This is especially true if you are on blood thinners such as aspirin. Swelling and bruising will peak at about 48 hours after surgery. Bruising and swelling will graduallyresolve. You can use ice packs or a bag of frozen peas for 15-20 minutes, 20 minutes off, up to 3-4times daily to areas of swelling on the face. Use caution not to put the icy item directly onto your incision, or directly in contact with your skin as this can damage skin. Avoid prolonged use more than 20 minutes. The best way to use ice packs is over the bandage, or using a light cloth/paper towel barrier between the ice pack and your skin. You can ice for as many days as needed until swellinghas resolved. Eyelid and lip swelling is typically the last type of swelling to resolve. Antibiotics: If you were given antibiotic prescription, it is important to start them the evening of your surgery date. However, most patients do not need antibiotics after surgery. For pain: Most patients of different ages do not require pain medications. If you do feel soreness, throbbingor sharp pains, start by taking over the counter extra strength acetaminophen (up to 3000 mg in a 24 hour period). Generally, we like you to avoid NSAIDS (non-steroid anti-inflammatory drugs such as ibuprofen) for the first 48 hours after surgery as this can increase risk of bleeding. However, if acetaminophen is not helping with pain, you can alternate acetaminophen with ibuprofen or other NSAID. Ice packs over your bandage without getting your bandage wet can also help with pain and swelling.Frozen peas work well as ice packs. THIS IS AN EXAMPLE OF A PAIN TREATMENT SCHEDULE: 1) You can take 500 mg acetaminophen one tablet by mouth at 6:00pm. This is over the counter. 2) You can take 400 mg of ibuprofen two hours later, at 8:00 pm, or other NSAID such as naproxen, as long as it does not interact with your other medications and your other doctors have not told you to avoid this. This is over the counter. Check to see how many milligrams (mg) each of your ibuprofen tablets are. Most of the time, ibuprofen comes in 200 mg tablets, so 400 mg would mean taking two of these tablets or capsules. 3) You can take 500 mg of acetaminophen at 10:00 pm. Keep track of your total acetaminophen in a 24hour period as your maximum should be 3000 mg total in a 24 hour period of this medication. 4) At midnight, you can take another 400 mg of ibuprofen. 5) you can continue on this schedule over the next 2 days, making sure to keep tabs of your total acetaminophen. If you are still in pain after trying the above, please call us. When to call your surgeon: Fever of 100.4 degrees Fahrenheit or higher Bleeding not controlled with direct firm pressure to your wound. Bleeding is most common in the first 48 hours. Pain that is worsening and not relieved by over the counter medications such as acetaminophen (up to 3000 mg in a 24 hour period) Wound reopening after stitching Pus or bad odor from your wound Worsening redness and warmth around your wound If you think your surgery site is infected, please call us before seeking care or antibiotics from other providers Please call us before seeking care in an emergency room or primary care. If you do call, please leave your full name, phone number, date of , date of surgery, and medical record number if you have it. If after hours, please call the powdered sugar pulverizer operator or [phone] and ask for the emergency worker on-call. If you have any non-urgent questions or concerns, please feel free to call my office or contact me through our patient portal, [employer], at [email or web address] How to contact us during business hours Dermatology at [facility] [address]: Mohs scheduling or Mohs follow-up appointments: [phone] documented in this encounter Progress Notes * Kingsley Finn MD - 02/17/2024 8:00 AM EDT Images from the original note were not included. Summary of Procedure(s): Site: right nasal dorsum Tumor Type: Basal Cell Carcinoma, infiltrative type Stages to clear tumor: 2 Repair: advancement flap and full-thickness skin graft Images: The patient was asked to call with any issues and is aware that I am available 15/06 should questions arise. Kingsley Finn MD PhD Mohs Micrographic Surgery and Dermatologic Oncology Department of Dermatology Please note that I have reviewed the preoperative checklist from today's nursing visit including relevant social history and medications. I have reviewed the preoperative photos if available and the biopsy report. VITAL SIGNS: BP 178/73 (BP Location (NBP): Left arm, Patient Position: Sitting, BP Cuff Sizes: Adult (25-34 cm)) Pulse 58 PHYSICAL EXAMINATION: General: patient is awake, alert, oriented and in no acute distress. Skin: Focused examination of surgical site(s) performed which shows a well healed biopsy site with surrounding poorly defined pearly plaque. PHYSICIAN REVIEW OF REPORTS, RECORDS, IMAGES: 1) The accompanying pathology report(s) associated with aforementioned biopsy slide(s) were/was also reviewed. Assessment: Brian Rodriguez is a 73 y.o. male presenting for: 1. Biopsy-proven basal cell carcinoma, infiltrative type, located on the right nasal dorsum. Plan: 1. Findings from the biopsy report, today's clinical exam, and other pertinent details [...] and follow up with his or her emergency worker or other skin provider. 5. Discussed avoiding direct sun exposure to scars for best cosmetic result. Note initiated by RONY Lopez RN has performed the documentation for this encounter in the presence of and acting as a scribe for Dr. Finn I performed the above scribed service and agree with the accuracy of the documentation in this encounter. Reviewed and signed by: Kingsley Finn Dermatology [facility] * Kingsley Finn MD - 02/17/2024 8:00 AM EDT Mohs micrographic Surgery Operative Report Patient name: Brian Rodriguez : 1950 Date: 02/17/2024 Staff Surgeon and Pathologist: Kingsley Finn MD PhD Nursing/Resource Teacher(s): Paula Baez RN, Zuly Morales RN, Barbara Platt ENAMEL SHADER, Olga Chappell LPN, Vladimir Ward CMA, Inge Forte LPN, Leah PATEL Rn Access (s): Vladimir Alejandro CMA Pre-operative diagnosis: Basal Cell Carcinoma, infiltrative types Post-operative diagnosis: same Location/Site: right nasal dorsum Procedure: Mohs micrographic surgery Indication(s) for Mohs micrographic surgery: Anatomic location for tissue conservation and >2cm Size Stages: 2 Preoperative size of tumor: 2.1 x 1.5 cm Stage I The nature and purpose of the procedure, associated risks, possible consequences and complications,and alternative forms of treatment were explained in detail. We reviewed the possible repairs basedon the clinical appearance of tumor but discussed that often the repair options may not be known until the tumor has ana extirpated. Informed consent and permission to take photographs were obtained. The site was confirmed with the patient/authorized herbicide service sales representative/referring physician and/or a photograph form time of biopsy. A pre-operative time-out (procedural pause) was conducted with no unresolved discrepancies noted. Local anesthesia was obtained with 0.5 % lidocaine with 1:200,000 epinephrine. The surgical site was prepped and draped in the usual sterile manner. A 1-2 mm margin was excised around clinically evident tumor as a complete layer. Hemostasis was achieved by electrocoagulation. The excised tissue was oriented and divided into 2 sections, chromacoded, and submitted for frozen sections. The patient tolerated the procedure well and without complications. On my personal microscopic evaluation of the frozen sections, residual tumor was identified as INFILTRATIVE BASAL CELL CARCINOMA -- Irregularly shaped narrow cords, thin strands, and small islands ofbasaloid keratinocytes are present in the dermis with an infiltrating and angulated growth pattern.The cells have scant cytoplasm and round dark nuclei. The islands are associated with a fibromyxoidstroma and there is cleft formation between some of the islands and stroma. on section A1 and A2 (see section number on map). Stage II The surgical site was re-anesthetized with 0.5 % lidocaine with 1:200,000 epinephrine, re-prepped and redraped in a sterile manner. The residual tumor was re-excised as a complete layer 2-3mm in thickness using the Mohs map to delineate area of residual tumor. Hemostasis was achieved with electrocoa gulation. The tissue was oriented and divided into 2 sections, chromacoded, and submitted for frozen sections. The patient tolerated the procedure well and without complications. On my personal microscopic evaluation of the frozen sections, no residual tumor was identified on the deep or outer border of the sections. Depth of excision perichondrium and cartilage. Final defect size: 4.0 x 2.9 cm Kingsley Finn MD PhD Mohs Micrographic Surgery and Dermatologic Oncology Department of Dermatology [address] [place] [id number] OPERATIVE REPORT (REPAIR) Patient Name: Brian Rodriguez Age: 73 y.o. : 1950 Date: 02/17/2024 Staff Surgeon: Kingsley Finn MD PhD Assistants: Zuly Morales RN; Shannen Garcia MD; Magda Edouard MD Diagnosis: Status post Mohs micrographic surgery defect/wound Site: right nasal dorsum Final Defect Size prior to repair: 4 x 2.9 cm Donor site: right nasolabial fold INDICATION: repair and synagogue of anatomy/function PROCEDURE: Full-thickness skin graft A graft was chosen as repair after discussing various repair options and pros and cons of those. Anesthesia with 0.5 % lidocaine with 1:200,000 epinephrine and another sterile prep were performed. Toavoid anatomical distortion, a template was made of the defect, and a full-thickness skin graft wascarefully planned and harvested from the right nasolabial fold. The graft was defatted and trimmed to fit the defect. After hemostasis was obtained with electrocoagulation, the graft was sutured intoplace with 5-0/6-0 Prolene skin sutures. The donor area was converted to a fusiform defect. The deep tissues were apposed and sutured with 3-0/4-0 Monocryl sutures and the epidermal edges were approximated with 6-0 Prolene running and/or interrupted sutures . Final graft size: 2.4 x 2 cm. Estimatedblood loss: Minimal. Complications: None. Wound care: Routine Repair Report (Flap) Patient name: Brian Rodriguez Staff Surgeon: Kingsley Finn MD PhD Bellman Driver(s): same as above legal executive assistant: Zuly Morales RN; Magda Edouard MD; Shannen Garcia MD Date: 02/17/2024 Clinical Diagnosis: skin and soft tissue defect status post Mohs micrographic surgery Location/Site: right nasal dorsum Indication: repair of wound with synagogue of anatomy/function Defect size to be repaired: 4 x 2.9 cm Procedure: advancement flap repair (tissue rearrangement) Final flap size: 6 x 3 cm 2 Procedure Details: Due to the size and location of the defect resulting from the complete removal of the tumor, the postoperative risk of hemorrhage, infection, and the possibility of serious deformity from scarring, and in order to restore proper function and prevent loss of function, the defect was closed with a flap. The nature and purpose of the procedure, associated risks, possible consequences, complications andalternative methods of treatment were explained to the patient in detail. An informed consent was obtained. Local anesthesia was obtained with a solution of 0.5 % lidocaine with 1:200,000 epinephrine. The surgical site was prepped and draped in the usual sterile manner. Any beveled edges of the defect were repaired with a scalpel blade. The flap was created by making incisions along the right nasolabial fold, right alar crease, and right nasal sidewall. The flap and the wound edges were undermined, and hemostasis was obtained with electrocoagulation. The flap was advanced onto the defect. The skin edges were closed using 3-0/4-0 Monocryl dermal/subcutaneous sutures and 6-0 Prolene skin sutures. Final flap size: 6 x 3 cm2. Estimated blood loss: Minimal. Complications: None. Wound care: Routine. Follow up for suture removal in 14 days (scheduled for 03/02/2024). The patient was discharged in good condition. Total anesthesia used today of 1% lidocaine with 1:100,000 epinephrine: 15 cc Total anesthesia used today of 0.5 % lidocaine with 1:200,000 epinephrine: 20 cc Total anesthesia used today of bupivacaine 0.25%: 9 cc Preoperative Medications: None Post-operative medications: Keflex 500 mg by mouth twice daily x 5 days Kingsley Finn MD PhD Mohs Micrographic Surgery and Dermatologic Oncology Department of Dermatology [address] [place] [address] Note initiated by Zuly Morales RN. Zuly Morales RN has performed the documentation for this encounter in the presence of and acting as a scribe for Dr. Finn I performed the above scribed service and agree with the accuracy of the documentation in this encounter. Reviewed and signed by: Kingsley Finn Dermatology [facility] documented in this encounter Plan of Treatment Upcoming Encounters Date Type Department Care Team (Late st Contact Info) Description 08/15/2024 9:00 AM EDT Office Visit [place] [address] Dion Barlow MD [facility] [place] [address] 09/01/2024 11:20 AM EDT Office Visit Dermatology at [facility] [address] [place] [address] Gómez Mercer MD [facility] DR EDDIE [place] [address] 09/21/2024 2:45 PM EDT Office Visit [facility] Sp[facility] at [facility] [place] [address] [place] [address] Trung Hoyos MD [facility] [place] [address] documented as of this encounter Visit Diagnoses Diagnosis Basal cell carcinoma of right side of nose Basal cell carcinoma of skin of other and unspecified parts of face documented in this encounter Care Teams Blindmaker Relationship Specialty Start Date End Date Deacon Watters, INSURANCE SALES SPECIALIST [address] [place] [address] PCP - General Family Medicine 02/17/22 documented as of this encounter
--- OUTSIDE RECORDS SUMMARY | 2024-06-29 16:02 | XMS_ITS | Encounter Summary ---
Author Organization Formerly [facility] Address [facility] [place] [address] Care Team Providers Care Special Collections Librarian Name Role Phone Deacon Watters APRN Primary Care Provider +1- [phone] Encounter Details Date Type Department Care Team (Latest Contact Info) Description 03/02/2024 Travel Social History Tobacco Use Types Packs/Day [...] 9:00 AM EDT Office [place] [address] Dion Barlow MD [facility] [place] [address] 09/01/2024 11:20 AM EDT Office Visit Dermatology at [facility] [address] [place] [address] Gómez Mercer MD [facility] DR [place] [address] 09/21/2024 2:45 PM EDT Office Visit [place] [address] Trung Hoyos MD [facility] [place] [address] documented as of this encounter Visit Diagnoses Not on filedocumented in this encounter Care Teams Special Collections Librarian Relationship Specialty Start Date End Date Deacon Watters, JAZMINE [address] [place] [address] [address] [place] [address] PCP - General Family Medicine 02/17/22 documented as of this encounter
--- OUTSIDE RECORDS SUMMARY | 2024-06-29 16:02 | XMS_ITS | Encounter Summary ---
Author Organization [facility] [place] [address] Care Team Providers Care Fall Internship Name Role Phone Decaon Watters APRN Primary Care Provider +1- [phone] Encounter Details Date Type Department Care Team (Late st Contact Info) Description 06/09/2024 Telephone [place] [phone] Marcelle Weinberg SEAM CHECKER [facility] [place] [address] Social History Tobacco Use Types Packs/Day Years [...] Telephone Encounter - Marcelle Weinberg APRN - 06/09/2024 2:03 PM EDT I called Brian and reviewed his recent stool tests: Stool Culture and C diff were negative. Fecal calpro 112. Plans: - Continue sulfasalazine 3 tablets twice per day - Increased ( Budesonide) rectal foam every night x 4 weeks; If better, go back down to every othernight x4 weeks; 3x/week x 4 weeks; 2x per week x 4 weeks then stop as tolerated. - Repeat Fecal calpro in 8 weeks ( [facility]). Order in. documented in this encounter Plan of Treatment Upcoming Encounters Date Type Department Care Team (Late st Contact Info) Description 08/15/2024 9:00 AM EDT Office [place] [phone] Dion Barlow MD [facility] [place] [address] 09/01/2024 11:20 AM EDT Office Visit Dermatology at [address] [place] [address] Gómez Mercer MD [facility] [place] [address] 09/21/2024 2:45 PM EDT Office Visit [facility] [place] [address] Trung Hoyos MD [facility] [place] [address] Scheduled Orders Name Type Priority Associated Diagnoses Orde r Schedule Calprotectin, Stool Lab Routine Left sided colitis without complications Expected: 08/01/2024 (Approximate), Expires: 06/09/2025 documented as of this encounter Visit Diagnoses Diagnosis Left sided colitis without complications Left sided ulcerative (chronic) colitis documented in this encounter Care Teams Fall Internship Relationship Specialty Start Date End Date Deacon Watters APRN [address] [place] [address] [address] [place] [address] PCP - General Family Medicine 02/17/22 documented as of this encounter
--- OUTSIDE RECORDS SUMMARY | 2024-06-29 16:02 | XMS_ITS | Encounter Summary ---
Author Organization [facility] Address [facility] [place] [address] Care Team Providers Care High School Mathematics Teacher Name Role Phone Deacon Watters APRN Primary Care Provider +1- [phone] Encounter Details Date Type Department Care Team (Latest Contact Info) Description 06/22/2024 Travel Social History Tobacco Use Types Packs/Day [...] 9:00 AM EDT Office [place] [address] Dion Barlow MD [facility] [place] [address] 09/01/2024 11:20 AM EDT Office Visit Dermatology at [facility] [address] [place] [address] Gómez Mercer MD [facility] DR EDD[address] [place] [address] 09/21/2024 2:45 PM EDT Office Visit [facility] [place] [address] Trung Hoyos MD [facility] [place] [address] documented as of this encounter Visit Diagnoses Not on filedocumented in this encounter Care Teams High [employer] Mathematics Teacher Relationship Specialty Start Date End Date Deacon Watters, JAZMINE [address] [place] [address] [address] [place] [address] PCP - General Family Medicine 02/17/22 documented as of this encounter
--- OUTSIDE RECORDS SUMMARY | 2024-06-29 16:02 | XMS_ITS | Encounter Summary ---
Author Organization [facility] Address [address] [place] [address] Care Team Providers Care Biomed Tech Name Role Phone Maximilian Fall MD Primary Care Provider Encounter Details Date Type Department Care Team (Late st Contact Info) Description 08/15/2022 Lab Requisition [facility] Pathology & Laboratory Medicine - [address] [address] Zeyad Hudson, [address] [place] [phone] Neoplasm of unspecified behavior of bone, soft tissue, and skin Social History Tobacco Use Types Packs/Day Years [...] Date/Time Associated Diagnosis Comments SURGICAL PATHOLOGY Today 08/14/2022 10 :25 EDT Neoplasm of unspecified behavior of bone, soft tissue, and skin documented in this encounter Results * SURGICAL PATHOLOGY (08/14/2022 10:25 EDT) Note to Patient The following pathology results have been interpreted by your pathologist and may be available to you before your health provider has had the opportunity to review them. Please allow time for your provider to receive these results and explore management options, if applicable. 08/18/2022 11:15 [facility] Final Diagnosis A. SKIN OF NASAL DORSUM, RIGHT, SHAVE BIOPSY: - Basal cell carcinoma, infiltrative type. - Basal cell carcinoma present at peripheral and deep tissue edges. 08/18/2022 11:15 [facility] Attestation By the signature below, the attending physician certifies that they have 1) personally conducted a gross and/or microscopic examination of the described specimen(s), and/or personally interpreted the results of laboratory testing of the described specimen(s), and 2) personally rendered or confirmed the above diagnosis. 08/18/2022 11:15 [facility] at [address] Microscopic Description Emanating from the epidermis and extending into the dermis are irregularly shaped islands and cords of atypical basal cells. Many of the islands are small and angulate. The basal cells have scant cytoplasm and round dark nuclei. Mitotic figures and apoptotic bodies are evident. Some nuclei at the periphery of some of the larger islands have a palisaded arrangement. There is fibroplasia and myxoid change of the stroma with cleft formation between some of the islands and stroma. 08/18/2022 11:15 [facility] Clinical History History BCC; clinical diagnosis code: D49.2 08/18/2022 11:15 [facility] Gross Description A. Received in formalin labelled with proper patient identification (initials B, A) and right nasal dorsum is a shave biopsy of stephen skin (1.8 x 0.9 x 0.1 cm). There is dark brown mottled crusty plaque that measures 1.2 x 0.8 x 0.2 cm. The margins are inked blue. The specimen is serially sectioned into 6 sections and submitted entirely in A1-A3. TOLU CHRIS 08/16/2022 10:29 08/18/2022 11:15 [facility] Performing Lab [facility] 08/18/2022 11:15 [facility] Scanned Images 08/18/2022 11:15 [facility] Tissue TISSUE SPECIMEN FROM SKIN / Unknown 08/14/2022 10:25 EDT 08/15/2022 21:12 EDT Zeyad MIRAMONTES PATHOLOGY ORDERABL ES [facility] [address] [place] [address] documented in this encounter Visit Diagnoses Diagnosis Neoplasm of unspecified behavior of bone, soft tissue, and skin documented in this encounter Care Teams Biomed Tech Relationship Specialty Start Date End Date Maximilian Fall MD PCP - General 03/18/16 documented as of this encounter
--- OUTSIDE RECORDS SUMMARY | 2024-06-29 16:02 | XMS_ITS | Encounter Summary ---
Author Organization [facility] Address [facility] [place] [address] Care Team Providers Care Lead Bi Developer Name Role Phone Deacon Watters APRN Primary Care Provider +1- [phone] Reason for Visit * Reason Comments Neck Pain * Consultation (Routine) - Closed Specialty Diagnoses / Procedures Referred By Contac t Referred To Contact Pain and Spine Center Diagnoses Spondylosis of cervical region without myelopathy or radiculopathy Santiago Morales PA [facility] [place] [address] [facility] [place] [address] Referral ID Status Reason Start Date Expiration Date V isits Requested Visits Authorized [id number] Closed Pain Consult 04/06/2024 04/06/2025 1 1 Encounter Details Date Type Department Care Team (Latest Contact Info) Description 06/22/2024 8:00 AM EDT Office Visit [facility] [place] [address] Trung Hoyos MD [facility] [place] [address] Radiculopathy of cervical region (Primary Dx) Social History Tobacco Use Types Packs/Day Years [...] - Inhaled Oxygen Concentration - - Weight 112.9 kg (249 lb) 06/22/2024 7:58 AM EDT Height 193 cm (6' 4) 06/22/2024 7:58 AM EDT Body Mass Index 30.31 06/22/2024 7:58 AM EDT documented in this encounter Patient Instructions * Patient Instructions* Trung Hoyos MD - 06/22/2024 8:00 AM EDT Follow-up in 2-3 months or as needed documented in this encounter Plan of Treatment Upcoming Encounters Date Type Department Care Team (Late st Contact Info) Description 08/15/2024 9:00 AM EDT Office Visit Gastroenterology at [place] [phone] Dion Barlow MD [facility] [place], [place] [phone] 09/01/2024 11:20 AM EDT Office Visit Dermatology at [facility] [address] [place] [address] Gómez Mercer MD [facility] DR EDDIE [facility] [address] 09/21/2024 2:45 PM EDT Office Visit [facility] [place] [address] Trung Hoyos MD [facility] [place] [address] Scheduled Referrals Name Type Priority Associated Diagnoses Orde r Schedule Referral to Pain and Spine Center (Internal only) Outpatient Referral Routine Spondylosis of cervical region without myelopathy or radiculopathy Ordered: 04/06/2024 documented as of this encounter Visit Diagnoses Diagnosis Radiculopathy of cervical region- Primary Brachial neuritis or radiculitis nos documented in this encounter Care Teams Lead Bi Developer Relationship Specialty Start Date End Date Deacon Watters, FRONT END SPECIALIST [address] [place] [address] [address] [facility] [address] [place] [address] PCP - General Family Medicine 02/17/22 documented as of this encounter
--- OUTSIDE RECORDS SUMMARY | 2024-06-29 16:02 | XMS_ITS | Encounter Summary ---
Author Organization [facility] Address [address] [place] [address] Care Team Providers Care Biomass Facilitator Name Role Phone Sharad Leon MD Primary Care Provider Unavail able Encounter Details Date Type Department Care Team (Latest Contact Info) Description 03/14/2016 7:58 EDT - 03/14/2016 23:59 EDT Hospital Encounter [address] [address] Unknown, Provider, Discharge Disposition: Home or Self Care Social History Tobacco Use Types Packs/Day Years Used Date Smoking Tobacco: Never Assessed Sex and Gender Information Value Date Recorded Sex Assigned at Not on file Gender Identity Not on file Sexual Orientation Not on file documented as of this encounter Discharge Disposition Disposition Code Departure Means Destination Home or Self Long Term documented in this encounter Plan of Treatment Not on file documented as of this encounter Visit Diagnoses Not on filedocumented in this encounter Care Teams Biomass Facilitator Relationship Specialty Start Date End Date Sharad Leon MD PCP - General 12/07/09 03/17/16 documented as of this encounter
--- OUTSIDE RECORDS SUMMARY | 2024-06-29 16:02 | XMS_ITS | Encounter Summary ---
Author Organization [facility] Address [address] [place] [address] Care Team Providers Care Sales And Service Agent Name Role Phone Maximilian Fall MD Primary Care Provider [phone] Encounter Details Date Type Department Care Team (Late st Contact Info) Description 12/31/2017 Results Only [facility] [phone] Tamara Reza, [address] [place], [place] [phone] Social History Tobacco Use Types Packs/Day Years Used Date Smoking Tobacco: Never Assessed Sex and Gender Information Value Date Recorded Sex Assigned at Not on file Gender Identity Not on file Sexual Orientation Not on file documented as of this encounter Plan of Treatment Not on file documented as of this encounter Procedures Procedure Name Priority Date/Time Associated Diagnosis Comments SURGICAL PATHOLOGY Routine 12/31/2017 16 :35 EST documented in this encounter Results * SURGICAL PATHOLOGY (12/31/2017 16:35 EST) Pathology Report: SURGICAL PATHOLOGY REPORT Reports generated via electronic interface contain original data; however they are lacking the format of the original report. Caution should be taken when reading/interpret ing unformatted reports. Name: ? NAYA RODRIGUEZ ? Accession #: ? [id number] ? : ? 1950 (Age: 67) ??M ? Collect Date: ? 12/31/2017 ? Location: ? [facility] ? Receive Date: ? 01/01/2018 ? Provider: TAMARA REZA DO Copy to: ? Final Pathologic Diagnosis: SKIN OF NECK, EXCISION: - Basal cell carcinoma, nodular type, completely excised. ?? Document reviewed and electronically signed by: FIDEL RAMON MD Report ??Date: 01/04/2018 13:54 By the signature above, the attending physician certifies that he/she has personally conducted a gross and/or microscopic examination of the described specimens and rendered or confirmed the above diagnosis. Specimen(s) Received: Skin lesion from neck Clinical History: Not listed Gross Description: ? Received in formalin labelled with proper patient identification (initials B, A) and neck lesion is an unoriented, roughly elliptical shaped excision of stephen, hairbearing skin (1.4 x 0.7 cm and is excised to a depth of 0.5 cm). There is an off center pearly, stephen-ayala, ulcerated papule that measures 0.6 x 0.5 x 0.2 cm. The margins are inked blue. The specimen is serially sectioned and entirely submitted as 2 central sections and 1 tips, reverse en face. Dr. Fontana 01/02/2018 9:44 AM End of Report [facility] 12/31/2017 16:3 5 EST 01/01/2018 16:35 EST Tamara Reza DO PATHOLOGY ORDER ASHLIE [facility] [address] [place] [address] documented in this encounter Visit Diagnoses Not on filedocumented in this encounter Care Teams Sales And Service Agent Relationship Specialty Start Date End Date Maximilian Fall MD PCP - General 03/18/16 documented as of this encounter
--- OUTSIDE RECORDS SUMMARY | 2024-06-29 16:02 | XMS_ITS | Encounter Summary ---
Author Organization [facility] Address [facility] [place] [address] Care Team Providers Care Drug Abuse Social Worker Name Role Phone Deacon Watters APRN Primary Care Provider [phone]- [phone] Encounter Details Date Type Department Care Team (Latest Contact Info) Description 06/06/2024 12:56 PM EDT - 06/06/2024 11:59 PM EDT Hospital [place] [address] Left sided colitis without complications Discharge Disposition: [...] Sig Dispensed Refills Start Date End Date mupirocin (Bactroban) 2 % OintmentIndications:Vis it for [...] 9:00 AM EDT Office [place] [address] Dion Barlow MD [facility] [place] [address] 09/01/2024 11:20 AM EDT Office Visit Dermatology at [facility] [address] [place] [address] Gómez Mercer MD [facility] DR EDDIE [place] [address] 09/21/2024 2:45 PM EDT Office Visit [place] [address] Trung Hoyos MD [facility] [place] [address] documented as of this encounter Procedures Procedure Name Priority Date/Time Associated Diagnosis Comments HC C. DIFF QUIK CHEK ANTIGEN Routine 06/06/2024 5:30 PM EDT Left sided colitis without complications CALPROTECTIN,STOOL Routine 06/06/2024 5: 30 PM EDT Left sided colitis without complications documented in this encounter Results * (ABNORMAL) Calprotectin, Stool (06/06/2024 5:30 PM EDT) Calprotectin, Stool 112(H) <=79 mcg/g [facility] Comment: Calprotectin Concentration ? Interpretation ? < 80 mcg/g ?Normal ? 80 ? 160 mcg/g ?Borderline ? >160 mcg/g ?Elevated Stool 06/06/2024 5:30 PM EDT 06/07/2024 1:07 PM EDT Narrative Resulting Agency Comment Spec In Lab MonalisaDg Weinberg APRN BODY FLUIDS AND S TOOLS ORDERABLES Performing Organization Address [facility] [[email or web address]] Co de Phone Number [facility] [place] [address] * C. Difficile Screen (06/06/2024 5:30 PM EDT) C Diff Interp Negative Negative [facility] Comment: Ag/Tox Neg C. diff?? Negative Clostridium difficile is not present in the specimen. If patient is having diarrhea suspected to be from an infectious cause, then Soap & Water Contact Precautions are still required. Stool 06/06/2024 5:30 PM EDT 06/07/2024 1:32 PM EDT Narrative Resulting Agency Comment Spec In Lab MonalisaDg Weinberg APRN MICROBIOLOGY - GE NERAL ORDERABLES Performing Organization Address [facility] [[email or web address]] Co de Phone Number [facility] [place] [address] documented in this encounter Visit Diagnoses Diagnosis Left sided colitis without complications Left sided ulcerative (chronic) colitis documented in this encounter Care Teams Drug Abuse Social Worker Relationship Specialty Start Date End Date Deacon Watters APRN [address] [place] [address] PCP - General Family Medicine 02/17/22 documented as of this encounter
--- OUTSIDE RECORDS SUMMARY | 2024-06-29 16:03 | XMS_ITS | Encounter Summary ---
Author Organization [facility] Address [facility] [place] [address] Care Team Providers Care Slot Machine Department Floorperson Name Role Phone Deacon Watters APRN Primary Care Provider +1- [phone] Reason for Referral * Physical Therapy (Routine) - Closed Specialty Diagnoses / Procedures Referred By Contac t Referred To Contact Physical Therapy Diagnoses Spondylosis of cervical region without myelopathy or radiculopathy Santiago Morales PA [facility] [place] [address] Physical Therapy, [address] [place] [address] Referral ID Status Reason Start Date Expiration Date V isits Requested Visits Authorized [id number] Closed Evaluate and Treat 01/07/2024 07/05/2024 12 12 Reason for Visit * Reason Comments Neck Pain chronic neck pain/MR I 10/27/23 in [facility] * Consultation (Routine) - Closed Specialty Diagnoses / Procedures Referred By Contac t Referred To Contact [facility] Sp[facility] Center Diagnoses Cervicalgia Other chronic pain chronic neck pain/MRI 10/27/23 @ Deacon Clarke APRN [address] [place] [address] [facility] [place] [address] Referral ID Status Reason Start Date Expiration Date V isits Requested Visits Authorized [id number] Closed Consult, Test & Treat PCP Updated and/or Approved 11/11/2023 05/10/2024 1 1 Encounter Details Date Type Department Care Team (Latest Contact Info) Description 01/07/2024 8:45 AM EST Office Visit [place] [phone] Santiago Morales PA [facility] [place] [place] [address] Spondylosis of cervical region without myelopathy or radiculopathy Social History Tobacco Use Types Packs/Day Years Used Date Smoking Tobacco: Former Cigarettes 4 30 1 12/01/1961 - 10/01/1992 Smokeless Tobacco: Former Chew Alcohol Use Standard Drinks/Week Comments No 0 (1 standard drink = 0.6 oz [...] - Inhaled Oxygen Concentration - - Weight 114.7 kg (252 lb 14.4 oz) 01/07/2024 8:36 AM EST Height 193 cm (6' 4) 01/07/2024 8:36 AM EST Body Mass Index 30.78 01/07/2024 8:36 AM EST documented in this encounter Progress Notes * Santiago Morales PA - 01/07/2024 8:45 AM EST Images from the original note were not included. [facility] Santiago Morales PA-C Dear Colleagues, I had the pleasure of seeing this patient at the [facility] for evaluation. Chief Complaint: Neck pain HPI: Brian is a 73 year old male who presents to clinic for evaluation of neck pain. Pain has been present for several years and progressively worsening. He does not recall an inciting event. He has seen his PCP for this and obtained some imaging and referred here. He does have a history of cancer; reporting a surgery to remove cancer on the back of his neck. He reports primarily axial neck pain that will frequently bother him with certain movements and limits his typical activities. He does not report any persistent radiating symptoms but does feel that his left arm goes weak, numb and tingly on occasion. Pain is often worse with driving. He finds heat compresses quite helpful. He has not done physical therapy for this. He reports drenching night sweats but no other constitutional symptoms. No fine motor changes. No gait changes. Medications and allergies reviewed and can be found in [facility] Social: Tobacco use: former Review of systems: As above in HPI Physical exam: Resting comfortably in no acute distress. Frequently winces in pain during exam. He has diminished sensation about the right hand attributable to prior hand/wrist surgeries. He otherwise has normal sensation to light touch. Motor exam shows 4/5 left master control technician strength; otherwise 5/5 throughout. Negativehoffman bilaterally. Imaging: Reviewed MRI of cervical spine available in edh. Overall well aligned cervical spine. Degenerative changes are most prominent at C5-6 where there is broad based disc osteophyte complex resulting in mild central narrowing and left>right mild-moderate foraminal narrowing. There is focal kyphosis at this level. Assessment Diagnosis: -Cervical spondylosis Brian is a 73 year old male who presents to clinic for primarily axial neck pain. He has some left hand master control technician weakness but otherwise is neuro intact. Imaging does show some C5-6 degenerative changes with foraminal narrowing but it unclear if this is the primary pain generator. He has not done physical therapy and recommend he begin with this and referral sent accordingly to Dario Savage PT. We will plan to follow up in 2-3 months for clinical check. If symptoms persist, could consider consult with the pain management team for consideration of injections or EMG/NCS to further assess radiculopathy as a contributor as he does have arm and hand weakness at times. Follow up sooner if symptoms change. Plan: 1) PT 2) Follow up 2-3 months for clinical check; sooner if symptoms change. Thank you for letting me participate in this patient's care. Sincerely, Santiago Morales PA-C [facility] documented in this encounter Plan of Treatment Upcoming Encounters Date Type Department Care Team (Late st Contact Info) Description 08/15/2024 9:00 AM EDT Office Visit Gastroenterology at [place] [phone] Dion Barlow MD [facility] [place] [address] 09/01/2024 11:20 AM EDT Office Visit Dermatology at [place] [address] [place] [phone] Gómez Mercer MD [facility] [address] 09/21/2024 2:45 PM EDT Office Visit [facility] Sp[facility] at [place] [phone] Trung Hoyos MD [facility] [place] [address] Scheduled Referrals Name Type Priority Associated Diagnoses Orde r Schedule Referral to Physical Therapy Outpatient Referral Routine Spondylosis of cervical region without myelopathy or radiculopathy Ordered: 01/07/2024 documented as of this encounter Visit Diagnoses Diagnosis Spondylosis of cervical region without myelopathy or radiculopathy Cervical spondylosis without myelopathy documented in this encounter Care Teams Slot Machine Department Floorperson Relationship Specialty Start Date End Date Deacon Watters, SAWSMITH [address] [place] [address] PCP - General Family Medicine 02/17/22 documented as of this encounter
--- OUTSIDE RECORDS SUMMARY | 2024-06-29 16:03 | XMS_ITS | Encounter Summary ---
Author Organization [facility] Address [facility] [place] [address] Care Team Providers Care Associate Professor Of Law Name Role Phone Deacon Watters APRN Primary Care Provider [phone]- [phone] Encounter Details Date Type Department Care Team (Latest Contact Info) Description 12/07/2023 8:00 AM EST Office [place] [phone] Dion Barlow MD [facility] [place] [address] Left sided colitis without complications Social History [...] Sign Reading Time Taken Comments Blood Pressure 143/71 12/07/2023 7:45 AM EST Pulse 68 12/07/2023 7:45 AM EST Temperature - - Respiratory Rate - - Oxygen Saturation - - Inhaled Oxygen Concentration - - Weight 114.7 kg (252 lb 14.4 oz) 12/07/2023 7:45 AM EST Height 193 cm (6' 4) 12/07/2023 7:45 AM EST Body Mass Index 30.78 12/07/2023 7:45 AM EST documented in this encounter Patient Instructions * Patient Instructions* Dion Barlow MD - 12/07/2023 8:00 AM EST 1. Continue sulfasalazine 3 tablets twice per day 2. Restart rectal foam nightly for two weeks and then go to every other night 3. Try new medication, dicyclomine, one tablet three times per day as you need for cramping 4. Schedule colonoscopy to be done within the next approximately 6 months. If not contacted within the next approximately eight weeks, please call [phone] to schedule the exam. 5. Repeat routine labs today. 6. Follow-up at the time of colonoscopy and in the office with Farideh Weinberg APRN in about 6-8 months. documented in this encounter Progress Notes * Dion Barlow MD - 12/07/2023 8:00 AM EST Images from the original note were not included. [facility] IBD PROGRAM ESTABLISHED PATIENT VISIT Patient Active Problem List Diagnosis Ulcerative colitis Overview Note: Colonoscopy 04/08/10 (Dr. Gomes [facility]) - inflammation only within the rectum and sigmoid; extent of the exam was to the hepatic flexure; biopsies proximal to the sigmoid nl Repeat exam 11/27/11 ([facility]): mildly active colitis in the sigmoid colon [...] ascending colon. Several HPs and one TA. [place] 03/2022 - Calvo 1 limited to rectosigmoid, diverticulosis. No dysplasia TREATMENT: cortenemas, Asacol, Rowasa, prednisone, and imodium Anemia Overview Note: Mild B12, iron all nl 2020 Diabetes mellitus Hearing loss GERD (gastroesophageal reflux disease) Overview Note: Hydrocele Asthma CURRENT IBD MEDS: Sulfasalazine 3 tabs bid INTERVAL HISTORY: Mr. Rodriguez follows up for ulcerative colitis. At last visit, was using Uceris foam 3 times per week in addition to sulfasalazine. When he was seen by Farideh Weinberg APRN in September, he was having some abdominal discomfort as well as rectal bleeding. At the time, CT abdomen pelvis showed diverticulosis, some mild circumferential inflammatory change within the mid sigmoid thought possibly to represent early diverticulitis. Was treated with a course of ciprofloxacin and metronidazole. Also had hyperenhancement around the bladder. Was referred to his urologist at [facility]. He reports that he has a lot of lower abdominal cramping. Also reports that my bones hurt everywhere. All joints and muscles are sore. Neck in particular has been difficult that he reports is due to deteriorated neck. Veins in the neck in the legs have popped out. 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 Very stressful for him. Currently being mediated in court. Please see Qorus questionnaire results below for further details re current symptoms. - [facility] Gastro Pre-Visit Questionnaire 12/07/2023 7:54 AM EST - Filed by Patient Number One Goal/Concern control IBD Dx Ulcerative Colitis Believe Will Benefit from Tx Change I'm not sure Avg Liquid/Soft Stool per Day 4 Stool Frequency/Day 3-4 stools per day more than normal ! BM Urgency Last 7 days 6 ! Abd Pain Severity/Day Severe !! Blood in Stool No blood seen BM with Blood Alone No Well-being Slightly under par ED Visit Due to IBD No Hospitalized for IBD No Current Prednisone Use No Current Opioid Use for IBD No Confidence Level to Manage IBD 10 - Ibd Qorus Study Participation 12/07/2023 7:55 AM EST - Filed by Patient IBD Qorus Study Participant No, I'm not interested in signing up IBD Qorus Provider Questionnaire Did you and your patient discuss your patient???s number one concern today? primary concern discussed How recently have you assessed for mucosal healing with endoscopy/imaging? within the past 6 months How recently have you assessed for mucosal healing with fecal calprotectin? more than 12 months andless than 3 years At the most recent assessment, had your patient achieved steroid-free mucosal healing? To answer YES, your patient should either have a Calvo endoscopic subscore of 0-1 for UC or no more than a few aphthous ulcers in the ileum and/or colon for CD. Yes Did you discuss steroid-free mucosal healing with your patient today? No When do you next plan to assess for mucosal healing with endoscopy/imaging? within the next 6 months When do you next plan to assess for mucosal healing with fecal calprotectin? I don???t know at thistime Which medication(s) is your patient currently taking for their IBD? Other specified medication(s): 5-ASA (oral and/or rectal) If your patient has NOT achieved steroid-free mucosal healing, are you making any treatment changestoday? Other specified treatment change(s): Not relevant - patient has mucosal healing What is your Provider Global Assessment (PGA) for this patient today? Mild Do you believe your patient is at high risk of going to the ED for their IBD within the next month?No Review of systems: 14-point review of systems reviewed and negative except as above. PHYSICAL EXAMINATION: Patient Vitals for the past 24 hrs: Pulse BP 12/07/23 0745 68 143/71 Wt Readings from Last 3 Encounters: 12/07/23 114.7 kg (252 lb 14.4 oz) 09/29/22 113.6 kg (250 lb 8 oz) 04/22/22 112.9 kg (249 lb) Body mass index is 30.78 kg/m??. GEN: Healthy-appearing in no acute distress though generally more slight Appears stated age. Cooperative and answers questions appropriately. SKIN: Healing resection of a skin lesion on the right side of his nose. Small varicosities in both legs HEENT: PERRL, EOMI, CLINICAL NURSE EDUCATOR and OP clear without ulceration or lesions. LUNGS: Clear to auscultation bilaterally. COR: Regular, normal S1 and S2 without murmurs ABD: Normal active bowel sounds. Soft and non-distended. Mild tenderness to deep palpation in the left lower quadrant more than the right lower quadrant EXT: Trace bilateral edema. Laboratory studies, imaging, and procedures (my review of prior records): Labs reviewed from [facility] 01/2023. CBC stable. Creatinine 1.6. Mild elevation of CRP noted. Assessment and Plan: Mr. Rodriguez is a 73 y.o. patient with L-sided ulcerative colitis. He has had abdominal crampy discomfort on and off for the last several years. May represent some degree of active ulcerative colitis. Has also had diverticulitis. Lastly, may be functional in etiology. Thankfully, neither his ulcerative colitis nor diverticulitis has been complicated. Will have him get routine labs today to see if there is an elevated CRP. He is in need of surveillance colonoscopy and we will get that scheduled within the next few months. He will go back on Ucerisfoam which has helped him in the past. Also recommended dicyclomine for cramping on an as-needed basis. Generally, he is having a tough time. A lot of different symptoms - muscular aching, poor energy, abdominal pain, new varicosities - importantly, a lot of stress perhaps related to his new neighbor. He is to follow-up with his president and chief operating officer, Deacon Watters APRN, in early December. Also offeredhim appointment with our GI behavioral health group to help him cope with multiple stressors, and Itold him I thought this could be a real benefit to him. He seemed somewhat amenable but not ready to commit. He will think about it and let me know. We discussed the following recommendations that were copied to the After Visit Summary: 1. Continue sulfasalazine 3 tablets twice per day 2. Restart rectal foam nightly for two weeks and then go to every other night 3. Try new medication, dicyclomine, one tablet three times per day as you need for cramping 4. Schedule colonoscopy to be done within the next approximately 6 months. If not contacted within the next approximately 8 weeks, please call [phone] to schedule the exam. 5. Repeat routine labs today. 6. Follow-up at the time of colonoscopy and in the office with Farideh Weinberg APRN in about 6-8 months. Davina Barlow MD Ob/Gyn Doctorcement breaker Co-Director, [facility] Section [place] [address] documented in this encounter Plan of Treatment Upcoming Encounters Date Type Department Care Team (Late st Contact Info) Description 08/15/2024 9:00 AM EDT Office [place] [phone] Dion Barlow MD [facility] [place] [address] 09/01/2024 11:20 AM EDT Office Visit Dermatology at [facility] [address] [place] [address] Gómez Mercer MD [facility] DR [place] [address] 09/21/2024 2:45 PM EDT Office Visit [place] [address] Trung Hoyos MD [facility] [place] [address] Scheduled Orders Name Type Priority Associated Diagnoses Orde r Schedule ENDOSCOPY CASE REQUEST: COLONOSCOPY, DIAGNOSTIC (WRVU 3.26) Procedures Routine Left sided colitis without complications Ordered: 12/07/2023 documented as of this encounter Procedures Procedure Name Priority Date/Time Associated Diagnosis Comments CRP, ACUTE INFLAMMATION Routine 12/07/2023 8:53 AM EST Left sided colitis without complications HEMOGRAM Routine 12/07/2023 8:53 AM EST Left sided colitis without complications DIFFERENTIAL, AUTOMATED Routine 12/07/2023 8:53 AM EST Left sided colitis without complications CBC (WITH DIFF) Routine 12/07/2023 8:53 AM EST Left sided colitis without complications COMPREHENSIVE METABOLIC PANEL Routine 12/07/2023 8:53 AM EST Left sided colitis without complications documented in this encounter Results * Differential, Automated (12/07/2023 8:53 AM EST) Neutrophil % 70.6 % [facility] Neutrophil Absolute 4.29 1.70 - 6.10 x10(3)/mcL [facility] Lymph % 20.4 % [facility] Lymphocytes Abs 1.2 0.9 - 3.2 x10(3)/[facility] Monocyte % 5.9 % [facility] Monocyte Abs 0.4 0.3 - 0.9 x10(3)/[facility] Eos % 2.1 % [facility] Eosinophils Abs 0.1 0.0 - 0.4 x10(3)/[facility] Basophil % 0.7 % [facility] Baso Absolute 0.0 0.0 - 0.1 x10(3)/[facility] Immature Gran % 0.30 % [facility] Comment: Immature granulocytes(IG's)percentage and absolute count will include metamyelocytes, myelocytes, and promyelocytes. Blood smears from CBCs yielding IG's will be scanned manually for concordance. If this scan disagrees with the automated IG or if promyelocytes are noted, a manual differential will be performed. Immature Gran Absolute 0.02 0.00 - 0.04 x10(3)/[facility] Blood 12/07/2023 8:53 AM EST 12/07/2023 9:03 AM EST Narrative Resulting Agency Comment Spec In Lab L Krathik Barlow MD HEMATOLOGY ORDERABLE S Performing Organization Address City/State/RUST Co de Phone Number [facility] [place] [address] * (ABNORMAL) Hemogram (12/07/2023 8:53 AM EST) White Blood Cell 6.1 4.0 - 9.5 x10(3)/mc L [facility] Red Blood Cell 3.87(L) 4.58 - 5.54 x10(6)/mc L [facility] Hemoglobin 12.8(L) 13.7 - 16.5 g/dL [facility] Hematocrit 37.5(L) 40.5 - 48.5 % [facility] Mean Cell Volume 96.9(H) 82.9 - 93.1 fL [facility] Mean Cell Hemoglobin 33.1(H) 27.5 - 32.1 pg [facility] Mean Cell Hemoglobin Concentration 34.1 32.0 - 35.7 g/dL [facility] Platelet 199 145 - 357 x10(3)/mc L [facility] RDW Standard Deviation 44.2 36.0 - 45.0 fL [facility] RDW coefficient of variation 12.6 11.4 - 13.8 % [facility] Mean Platelet Volume 11.2 7.6 - 12.[address] [facility] NRBC% auto 0.0 % [facility] NRBC Absolute 0.000 0.000 - 0.000 x10(3)/mc L [facility] Blood 12/07/2023 8:53 AM EST 12/07/2023 9:03 AM EST Narrative Resulting Agency Comment Spec In Lab L Karthik Barlow MD HEMATOLOGY ORDERABLE S Performing Organization Address [facility] de Phone Number [facility] [place] [address] * CRP, acute inflammation (12/07/2023 8:53 AM EST) C-Reactive Protein <3.0 <=4.9 mg/L [facility] Blood 12/07/2023 8:53 AM EST 12/07/2023 9:03 AM EST Narrative Resulting Agency Comment Spec In Lab L Karthik Barlow MD CHEMISTRY ORDERABLES Performing Organization Address [facility] Phone Number [facility] [place] [address] * (ABNORMAL) Comprehensive metabolic panel (non-fasting) (12/07/2023 8:53 AM EST) Glucose 140 65 - 199 mg/dL [facility] Comment:Diabetes: >=200 mg/d L plus symptoms Blood Urea Nitrogen 12 10 - 20 mg/dL [facility] Creatinine 1.05 0.80 - 1.50 mg/dL [facility] Sodium 144 135 - 145 mmol/L [facility] Potassium 4.0 3.5 - 5.0 mmol/L [facility] Comment: Please note: ??Patients with WBC >100,000 may have falsely elevated Potassium levels. ??For accurate Potassium quantification in these patients send serum separator tube (gold top) for subsequent determinations. ??Contact the Clinical Chemistry Laboratory if there are any questions. Chloride 109(H) 98 - 107 mmol/L [facility] Carbon Dioxide 24 22 - 31 mmol/L [facility] Anion Gap 11 5 - 15 mmol/L [facility] Calcium 9.5 8.5 - 10.5 mg/dL [facility] Protein, Total 7.8 6.1 - 8.0 g/dL [facility] Albumin 4.2 3.2 - 5.2 g/dL [facility] Aspartate Aminotransferase 13 0 - 39 unit/L [facility] Alanine Aminotransferase 15 0 - 55 unit/L [facility] Alkaline Phosphatase 77 40 - 130 unit/L [facility] Bilirubin, Total 0.4 0.2 - 1.3 mg/dL [facility] Est Glomerular Filtration Rate 74 >=60 mL/min/1. 73 m?? [facility] Comment: This patient's estimated [...] and symptoms in addition to eGFR. Blood 12/07/2023 8:53 AM EST 12/07/2023 9:03 AM EST Narrative Resulting Agency Comment Spec In Lab L Karthik Barlow MD CHEMISTRY ORDERABLES [facility] [place] [address] documented in this encounter Visit Diagnoses Diagnosis Left sided colitis without complications Left sided ulcerative (chronic) colitis documented in this encounter Care Teams Associate Professor Of Law Relationship Specialty Start Date End Date Deacon Watters APRN [address] [place] [address] PCP - General Family Medicine 02/17/22 documented as of this encounter
--- OUTSIDE RECORDS SUMMARY | 2024-06-29 16:03 | XMS_ITS | Encounter Summary ---
Author Organization [facility] [place] [address] Care Team Providers Care Dye Machine Operator Name Role Phone Deacon Watters APRN Primary Care Provider +1- [phone] Encounter Details Date Type Department Care Team (Late st Contact Info) Description 05/05/2022 Telephone [place] [phone] Dianna Shen RN Social History Tobacco Use Types Packs/Day Years [...] encounter Miscellaneous Notes * Telephone Encounter - Dianna Shen RN - 05/23/2022 4:50 PM EDT TC to Brian. Dr. Barlow does not feel that a CT without contrast will give valuable information that would change his plan of care. Due to metal in his body he is not a candidate for MRI. At this time he recommends holding on CT altogether. Discussed this with Brina and told him to call us if his abdominal pain worsens. * Telephone Encounter - Margoth Mcdermott - 05/23/2022 8:27 AM EDT Marbella from [facility] called to check on the status of this CT she can be reached at [phone]. * Telephone Encounter - Dianna Shen RN - 05/19/2022 11:04 AM EDT 05/16 TC to Brian to see where is at as far as abdominal pain. He states that pain has not improved. Asked if he has metal in his body and he states that he does. * Telephone Encounter - Dianna Shen RN - 05/05/2022 4:20 PM EDT VM left from radiology at [facility]. Due to contrast shortage, contrast IV is not being utilized for outpatient at their facility. They could schedule CT with oral only. Otherwise they are booking out to August for patients who need IV contrast. documented in this encounter Plan of Treatment Upcoming Encounters Date Type Department Care Team (Late st Contact Info) Description 08/15/2024 9:00 AM EDT Office Visit [place] [address] Dion Barlow MD [facility] [place] [address] 09/01/2024 11:20 AM EDT Office Visit Dermatology at [facility] [address] [place] [address] Gómez Mercer MD [facility] [address] [place] [address] 09/21/2024 2:45 PM EDT Office Visit [facility] [place] [address] Trung Hoyos MD [facility] [place] [address] documented as of this encounter Visit Diagnoses Not on filedocumented in this encounter Care Teams Dye Machine Operator Relationship Specialty Start Date End Date Deacon Watters, JAZMINE [address] [place] [address] PCP - General Family Medicine 02/17/22 documented as of this encounter
--- OUTSIDE RECORDS SUMMARY | 2024-06-29 16:03 | XMS_ITS | Encounter Summary ---
Author Organization [facility] [place] [address] Care Team Providers Care Associate Pathologist Name Role Phone Deacon Watters APRN Primary Care Provider +1- [phone] Encounter Details Date Type Department Care Team (Late st Contact Info) Description 02/12/2023 Telephone [place] [phone] Kelly Castillo, RN Social History Tobacco Use Types Packs/Day [...] Telephone Encounter - Dianna Shen RN - 03/19/2023 1:03 PM EDT Brian leaves asking for update on lab results in January. Can only see fecal PCR in care everywhere. Will request records. * Telephone Encounter - Dianna Shen RN - 02/17/2023 3:59 PM EDT Lab called, formed stool. Cdiff test cancelled * Telephone Encounter - Bethany Trivedi RN - 02/13/2023 8:41 AM EDT Call placed to Brian to check in. He is doing much better today. Has had no more bleeding. Will have him get labs and stool studies, orders to [facility]. Discussed making sure he takes his sulfasalazine as ordered regularly. He will call back if issues reoccur. * Telephone Encounter - Kelly Castillo RN - 02/12/2023 5:00 PM EDT Pt calls, reporting brbpr x 1 at 0930 and again just now. Blood was within formed stool and colored the toilet bowl water. No clots. Also c/o abd pain left side earlier today, though this is not new. C/O shaking, chills with exercise x 2 days, and wakes up AM's sweaty. Blood sugars stable per pt. 122/78, 130/72, 129/71, 138/58 (BP readings past 4 days). He's had some positional dizziness for about one month - has to be careful standing up. This is notworsened today. Last few days has been forgetting to take about half sulfasalazine daily dose. I've been more forgetful lately. Uceris foam, uses ~ twice weekly. Denies constipation. Unsure if he has hemorrhoids. Has been more active past few weeks, walking in the [place]. We discussed he likely needs update labs. Would use [facility]. Should he have another bleeding episode this evening/overnight encouraged him to either reach out to the on-call GI provider or seek care at local ER. He would likely go to [place] if this is the case. Will ask regular IBD team to f/u with him in the AM. documented in this encounter Plan of Treatment Upcoming Encounters Date Type Department Care Team (Late st Contact Info) Description 08/15/2024 9:00 AM EDT Office [place] [address] Dion Barlow MD [facility] [place] [address] 09/01/2024 11:20 AM EDT Office Visit Dermatology at [facility] [address] [place] [phone] Gómez Mercer MD [facility] DR EDD[place] [address] 09/21/2024 2:45 PM EDT Office Visit [facility] at [place] [phone] Trung Hoyos MD [facility] [address] documented as of this encounter Visit Diagnoses Not on filedocumented in this encounter Care Teams Associate Pathologist Relationship Specialty Start Date End Date Deacon Watters APRN [address] [place] [address] PCP - General Family Medicine 02/17/22 documented as of this encounter
--- OUTSIDE RECORDS SUMMARY | 2024-06-29 16:03 | XMS_ITS | Encounter Summary ---
Author Organization [facility] [place] [address] Care Team Providers Care Planer Off Bearer Name Role Phone Deacon Watters APRN Primary Care Provider +1- [phone] Encounter Details Date Type Department Care Team (Late st Contact Info) Description 11/20/2022 Telephone [place] [phone] Jarret Roa RN Social History Tobacco Use Types Packs/Day [...] encounter Miscellaneous Notes * Telephone Encounter - Jarret Roa RN - 11/20/2022 11:52 AM EST Call to Brian for update on symptoms. Brian says he is feeling good. GI symptoms have totally resolved. Denies rectal bleeding or diarrhea. Having regular formed stools now. For a while I was almost constipated Doing Uceris foam once nightly currently. Taking sulfasalazine as prescribed. Reviewed recent labs with him. Stool culture negative, c. Diff specimen rejected because formed, calpro borderline at 91.6. Blood work normal. He will call for any increase in symptoms. documented in this encounter Plan of Treatment Upcoming Encounters Date Type Department Care Team (Late st Contact Info) Description 08/15/2024 9:00 AM EDT Office [place] [address] Dion Barlow MD [facility] [place] [address] 09/01/2024 11:20 AM EDT Office Visit Dermatology at [place] [address] [place] [phone] Gómez Mercer MD [facility] [place] [address] 09/21/2024 2:45 PM EDT Office Visit [facility] [place] [phone] Trung Hoyos MD [facility] [place] [address] documented as of this encounter Visit Diagnoses Not on filedocumented in this encounter Care Teams Planer Off Bearer Relationship Specialty Start Date End Date Deacon Watters APRN [address] [place] [address] PCP - General Family Medicine 02/17/22 documented as of this encounter
--- OUTSIDE RECORDS SUMMARY | 2024-06-29 16:03 | XMS_ITS | Encounter Summary ---
Author Organization [facility] [place] [address] Care Team Providers Care Supervisor Insecticide Name Role Phone Deacon Watters APRN Primary Care Provider +1- [phone] Encounter Details Date Type Department Care Team (Latest Contact Info) Description 02/19/2022 10:52 AM EDT - 02/19/2022 11:59 PM EDT Hospital [place] [phone] Other ulcerative colitis with rectal bleeding Discharge Disposition: Home Social History Tobacco Use [...] Sig Dispensed Refills Start Date End Date nystatin (Mycostatin) 100,000 unit/mL Suspension Place 500,000 Units inside cheek. 07/08/2021 sulfamethoxazole-trime thoprim DS (Bactrim DS) 800-160 mg Tablet Take [...] mouth daily. folic acid (FOLVITE) 1 mg tabletIndications:Ulce rative colitis Take 1 tablet by mouth daily. 90 tablet 3 11/22/2012 omeprazole (PRILOSEC) 20 mg capsule Take 40 mg by mouth daily. budesonide (Uceris) 2 mg/actuation FoamIndications:Left sided colitis without complications Place 2 mg rectally See Admin Instructions. 2mg rectally nightly for 2 weeks, then continue every other night (four nights per week) 133.6 g 5 08/26/2021 12/07/2023 sulfaSALAzine (Azulfidine) 500 mg Tablet Take 3 tablets by mouth 2 times daily. 540 tablet 3 05/06/2021 08/22/2022 hydrocortisone (CORTIFOAM) 10 % (80 mg) FoamIndications:Pain in right hip,Chronic ulcerative enterocolitis, unspecified complication Place 1 applicator rectally nightly. 90 g 3 03/15/2018 09/29/2022 documented as of this encounter Plan of Treatment Upcoming Encounters Date Type Department Care Team (Late st Contact Info) Description 08/15/2024 9:00 AM EDT Office [place] [address] Dion Barlow MD [facility] [place] [address] 09/01/2024 11:20 AM EDT Office Visit Dermatology at [facility] [address] [place] [address] Gómez Mercer MD [facility] [address] [place] [address] 09/21/2024 2:45 PM EDT Office Visit [facility] [place] [address] Trung Hoyos MD [facility] [place] [address] documented as of this encounter Procedures Procedure Name Priority Date/Time Associated Diagnosis Comments HC FECAL CALPROTECTIN Routine 02/19/2022 8:00 AM EDT Other ulcerative colitis with rectal bleeding documented in this encounter Results * Calprotectin, Stool (02/19/2022 8:00 AM EDT) Calprotectin, Stool 55 <=79 mcg/g [facility] Comment: Calprotectin Concentration ? Interpretation ? < 80 mcg/g ?Normal ? 80 ? 160 mcg/g ?Borderline ? >160 mcg/g ?Elevated Stool 02/19/2022 8:00 AM EDT 02/19/2022 11:25 AM EDT Narrative Resulting Agency Comment Spec In Lab Marcelle Weinberg RIGHT OF WAY MANAGER BODY FLUIDS AND S TOOLS ORDERABLES [facility] [place] [address] documented in this encounter Visit Diagnoses Diagnosis Other ulcerative colitis with rectal bleeding documented in this encounter Additional Health Concerns Infection Onset Date Last Indicated Resolved Time Rule Out C. difficile 02/19/2022 02/19/20222021 11:33 AM EDT documented as of this encounter Care Teams Supervisor Insecticide Relationship Specialty Start Date End Date Deacon Watters APRN [address] [place] [address] PCP - General Family Medicine 02/17/22 documented as of this encounter
--- OUTSIDE RECORDS SUMMARY | 2024-06-29 16:03 | XMS_ITS | Encounter Summary ---
Author Organization [facility] [place] [address] Care Team Providers Care Golf Club Weighter Name Role Phone Deacon Watters APRN Primary Care Provider +1- [phone] Encounter Details Date Type Department Care Team (Late st Contact Info) Description 11/03/2022 Telephone [place] [address] Jarret Roa RN Social History Tobacco Use [...] Telephone Encounter - Dianna Shen RN - 11/05/2022 8:52 AM EST TC to Brian to review following recommendations from Farideh If no recent labs and stool tests, let's get one Then have him increase his Uceris foam to every hs x 2 weeks, then go down to once very other nightx2 weeks; 3x/week x 2 weeks then stop as tolerated. Stay on Sulfasalazine 3 tabs twice daily Check ??on him in 2 weeks. Labs and stool studies sent to [facility]- He will call when he drops of the stool samples. Will plan to follow up on his symptoms. * Telephone Encounter - Dianna Shen RN - 11/04/2022 2:14 PM EST Returned call from Brian, He says that in some ways his symptoms are better, other ways he is not. He is not currently bleeding. He did try going down to once weekly for the Uceris foam however he has had an increase in diarrhea so he started taking twice weekly again. Brian reports having 5 episodes so far today since 0400 of diarrhea. No abdominal pain, fevers or chills. He does feel like increasing the uceris foam has helped some with his diarrhea. Will give Farideh the update and let him know what she says. * Telephone Encounter - Jarret Roa RN - 11/03/2022 2:40 PM EST Per Farideh Weinberg, REFLEXOLOGIST: Could you please check on him in a month to see if rectal bleeding resolved. If no more bleeding, let's cut down on his Uceris foam to once a week LM for patient to call clinic with an update on sx documented in this encounter Plan of Treatment Upcoming Encounters Date Type Department Care Team (Late st Contact Info) Description 08/15/2024 9:00 AM EDT Office [place] [address] Dion Barlow MD [facility] [place] [address] 09/01/2024 11:20 AM EDT Office Visit Dermatology at [facility] [address] [place] [address] Gómez Mercer MD [facility] [address] [place] [address] 09/21/2024 2:45 PM EDT Office Visit [place] [phone] Trung Hoyos MD [facility] [place] [address] documented as of this encounter Visit Diagnoses Not on filedocumented in this encounter Care Teams Golf Club Weighter Relationship Specialty Start Date End Date Deacon Watters APRN [address] [place] [address] PCP - General Family Medicine 02/17/22 documented as of this encounter
--- OUTSIDE RECORDS SUMMARY | 2024-06-29 16:03 | XMS_ITS | Encounter Summary ---
Author Organization [facility] Address [facility] [place] [address] Care Team Providers Care Director Of Sustainability Name Role Phone Deacon Watters APRN Primary Care Provider [phone] Encounter Details Date Type Department Care Team (Late st Contact Info) Description 09/29/2022 11:00 AM EST Office [place] [address] Marcelle Weinberg [employer] [facility] [place] [address] Left sided colitis without complications; Other ulcerative colitis with rectal bleeding Social History Tobacco Use Types Packs/Day Years [...] Sign Reading Time Taken Comments Blood Pressure 153/72 09/29/2022 11:08 AM EST Pulse 66 09/29/2022 11:08 AM EST Temperature - - Respiratory Rate - - Oxygen Saturation - - Inhaled Oxygen Concentration - - Weight 113.6 kg (250 lb 8 oz) 09/29/2022 11:08 A M EST Height 193 cm (6' 4) 09/29/2022 11:08 AM EST Body Mass Index 30.49 09/29/2022 11:08 AM EST documented in this encounter Progress Notes * Marcelle Weinberg, [employer] - 09/29/2022 11:00 AM EST Primary care provider: Deacon Watters APRN Other providers: Dr. Barlow Reason for visit:Ulcerative colitis f/u Problem List Patient Active Problem List Diagnosis Date Noted ??? Ulcerative colitis 10/01/2011 Priority: High ??? Anemia 08/25/2021 ??? Diabetes mellitus 10/01/2011 ??? Hearing loss 10/01/2011 ??? GERD (gastroesophageal reflux disease) 10/01/2011 ??? Hydrocele 10/01/2011 ??? Asthma 10/01/2011 Resolved Hospital Problems No resolved problems to display. ?? Detailed IBD History: ??? Ulcerative colitis ? Overview Note: ? Colonoscopy 04/08/10 (Dr. Gomes [facility]) - inflammation only within the rectum and sigmoid; extent of the exam was to the hepatic flexure; biopsies proximal to the sigmoid nl ?? Repeat exam 11/27/11 ([facility]): mildly active colitis in the sigmoid colon and a small cecal patch. Suspected lack of distal involvement due to topical therapies; sigmoid diverticulosis; nl ileum. ??Biopsies with active colitis on the L but not R colon. ??4 mm TA in the transverse ? Flex sig (03/16/12) for screening for MERIT. Mild (calvo 1) colitis to 25 cm - rectum spared ?? EGD (2018): normal [done for gastric thickening on CT] ?? 02/26/21 Colonoscopy: Ulcerative colitis partially treated with only mild activity in the distal rectum.Moderate diverticulosis from sigmoid to ascending colon. Several HPs and one TA. ?? TREATMENT: cortenemas, Asacol, Rowasa, prednisone, and imodium ? Anemia ? Overview Note: ? Mild ?? B12, iron all nl 2020 ? Diabetes mellitus ??? Hearing loss ??? GERD (gastroesophageal reflux disease) ? Overview Note: ? Hydrocele ??? Asthma ? Interval History: Last visit with Farideh Mathur APRN 01/2022 Just had colo with Dr. Turner in 03/2022 with Calvo 1 involvement within the sigmoid and a 3 mm TA in the transverse colon On Sulfasalazine 3 tabs bid and Uceris foam three days per week ?? He is having BMs 2-3 times per day for formed stool and no bleeding for a few weeks. Stool is formed. Urgency improved. There is some abd pain interior to the umbilicus and towards LLQ that radiates to LUQ. It is betterafter BM. No fevers. No N/V. Weight stable No f/c No n/v No heartburn sxs as long as takes Prilosec once daily. ?? He avoids all NSAID's and takes only Tylenol for aches/pains. ?? Interval History: - Last visit with Dr. Barlow 03/2022 - On Sulfasalazine 3 tabs bid and Uceris foam twice per week to maintain ulcerative colitis; Prilosec 40 mg once daily - No diarrhea for 1 1/2 months - Having bm 2x/day, formed stool, still with blood in the stool but also getting better - Still gets left sided abdominal pain, about the same, not getting worse - He is eating - He stated that he has a skin lesion on right side of nose that was biopsied 2 months ago and he was told that it was cancer, followed by Dr. Carrillo, at [facility]. IBD Questionnaire No questionnaires on file. IBD Qorus Provider Questionnaire Review of systems as in the HPI, the rest of the review of systems were negative. Past Medical History, Social History and Family History is unchanged. Medications Outpatient Encounter Medications as of 09/29/2022 Medication Sig Dispense Refill ??? sulfaSALAzine (Azulfidine) 500 mg Tablet Take 3 tablets by mouth 2 times daily. 540 tablet 3 ??? empagliflozin (Jardiance) 10 mg Tablet Take 10 mg by mouth daily. ??? atorvastatin (Lipitor) 20 mg Tablet Take 20 mg by mouth daily. ??? nystatin (Mycostatin) 100,000 unit/mL Suspension Place 500,000 Units inside cheek. ??? sulfamethoxazole-trimethoprim DS (Bactrim DS) 800-160 mg Tablet Take 1 tablet by mouth. ??? SUMAtriptan (Imitrex) 50 mg Tablet TAKE 1 TABLET BY MOUTH 1 TIME NEEDED FOR MIGRAINE HEADACHE ??? budesonide (Uceris) 2 mg/actuation Foam Place 2 mg rectally See Admin Instructions. 2mg rectally nightly for 2 weeks, then continue every other night (four nights per week) 133.6 g 5 ??? gabapentin (Neurontin) 300 mg Capsule Take 300 mg by mouth daily as needed. ??? losartan (Cozaar) 50 mg Tablet TK 1 T PO D ??? albuterol 90 mcg/actuation HFA Aerosol Inhaler Inhale 2 puffs into the lungs every 4 hours as needed for Wheezing. Use with spacer ??? BASAGLAR KWIKPEN U-100 INSULIN 100 unit/mL (3 mL) pen Inject 50 Units subcutaneously. 0 ??? [DISCONTINUED] hydrocortisone (CORTIFOAM) 10 % (80 mg) Foam Place 1 applicator rectally nightly. 90 g 3 ??? propranolol (INDERAL LA) 80 mg Capsule,Sustained Action 24 hr take 2 capsules by mouth daily for MIGRAINE PROPHYLAXIS 0 ??? lisinopril (PRINIVIL;ZESTRIL) 10 mg Tablet take 1 tablet by mouth once daily 0 ??? metFORMIN (GLUCOPHAGE) 1,000 mg Tablet Take 1,000 mg by mouth daily. 0 ??? tamsulosin (FLOMAX) 0.4 mg Capsule, Sust. Release 24 hr Take 0.8 mg by mouth daily. ??? glipiZIDE (GLUCOTROL) 10 mg 24 hr tablet Take 10 mg by mouth daily. ??? folic acid (FOLVITE) 1 mg tablet Take 1 tablet by mouth daily. 90 tablet 3 ??? omeprazole (PRILOSEC) 20 mg capsule Take 40 mg by mouth daily. No facility-administered encounter medications on file as of 09/29/2022. Allergies/Adverse reactions Erythromycin base and Tetracyclines Physical Examination Patient appears well Wt Readings from Last 3 Encounters: 04/22/22 112.9 kg (249 lb) 03/28/22 111.1 kg (245 lb) 02/17/22 116.1 kg (255 lb 14.4 oz) Vitals: 09/29/22 1108 BP: 153/72 BP Location ([facility]): Left arm Patient Position: Sitting BP Cuff Sizes: Adult (25-34 cm) Pulse: 66 Weight: 113.6 kg (250 lb 8 oz) Height: 193 cm (6' 4) Heart: regular Resp: CTA Abd: normal BS, soft, tender on LUQ/LLQ on palpation. No rebound tenderness. No masses. Recent labs No visits with results within 3 Month(s) from this visit. Latest known visit with results is: Office Visit on 04/22/2022 Component Date Value Ref Range Status ??? Glucose Lvl 04/22/2022 206 (A) 65 - 199 mg/dL Final ??? BUN 04/22/2022 21 (A) 10 - 20 mg/dL Final ??? Creatinine 04/22/2022 1.17 0.80 - 1.50 mg/dL Final ??? Sodium 04/22/2022 141 135 - 145 mmol/L Final ??? Potassium 04/22/2022 4.6 3.5 - 5.0 mmol/L Final ??? Chloride 04/22/2022 104 98 - 107 mmol/L Final ??? CO2 04/22/2022 26 22 - 31 mmol/L Final ??? Anion Gap 04/22/2022 11 5 - 15 mmol/L Final ??? Calcium 04/22/2022 10.1 8.5 - 10.5 mg/dL Final ? ? Estimated GFR 04/22/2022 61 >=60 mL/min/1.73 m?? Final ? ? CRP 04/22/2022 3.3 <=4.9 mg/L Final ??? Sed Rate 04/22/2022 36 3 - 46 mm/hr Final ??? WBC 04/22/2022 6.8 4.0 - 9.5 x10(3)/mcL Final ??? RBC 04/22/2022 3.70 (A) 4.58 - 5.54 x10(6)/mcL Final ??? Hemoglobin 04/22/2022 12.4 (A) 13.7 - 16.5 g/dL Final ??? Hematocrit 04/22/2022 37.5 (A) 40.5 - 48.5 % Final ??? MCV 04/22/2022 101.4 (A) 82.9 - 93.1 fL Final ??? MCH 04/22/2022 33.5 (A) 27.5 - 32.1 pg Final ??? MCHC 04/22/2022 33.1 32.0 - 35.7 g/dL Final ??? Platelets 04/22/2022 198 145 - 357 x10(3)/mcL Final ??? RDWSD 04/22/2022 45.2 (A) 36.0 - 45.0 fL Final ??? RDWCV 04/22/2022 12.2 11.4 - 13.8 % Final ??? MPV 04/22/2022 11.0 7.6 - 12.9 fL Final ??? nRBC % Auto 04/22/2022 0.0 % Final ??? nRBC Abs Auto 04/22/2022 0.000 0.000 - 0.000 x10(3)/mcL Final ??? Neutrophils % 04/22/2022 68.0 % Final ??? Neutr Abs (ANC) 04/22/2022 4.59 1.70 - 6.10 x10(3)/mcL Final ??? Lymphocytes % 04/22/2022 20.1 % Final ??? Lymphocytes Abs 04/22/2022 1.4 0.9 - 3.2 x10(3)/mcL Final ??? Monocytes % 04/22/2022 7.1 % Final ??? Monocyte Abs 04/22/2022 0.5 0.3 - 0.9 x10(3)/mcL Final ??? Eosinophils % 04/22/2022 3.8 % Final ??? Eosinophils Abs 04/22/2022 0.3 0.0 - 0.4 x10(3)/mcL Final ??? Basophils % 04/22/2022 0.7 % Final ??? Basophils Abs 04/22/2022 0.0 0.0 - 0.1 x10(3)/mcL Final ??? Immature Gran % 04/22/2022 0.30 % Final ??? Sherry Gran Abs 04/22/2022 0.02 0.00 - 0.04 x10(3)/mcL Final Recent endoscopic procedures None Recent relevant imaging None Assessment/Plan: Mr.??Rodriguez??is a 72y.o.??patient with ulcerative colitis. ??On Sulfasalazine 3 tabs BID, and Uceris foam twice per week to maintain ulcerative colitis; Prilosec 40 mg once daily. Overall, symptoms are improving, no diarrhea for 1 1/2 months and less bleeding. However, still with left sided abdominal pain. Not getting worse. Plans to get CT Abd/pelvis but was put on hold back in April due to shortage of oral contrast. We will try to see if this is available now. We will have him check a creatinine today. ? His GERD is well controlled on once daily omeprazole. He will continue it. ?? Plans: - Will plan to get CT scan Abd/pelvis - Check Creatinine today - Continue Sulfasalazine 3 tabs twice daily - Use Uceris foam twice per week to maintain ulcerative colitis. If no bleeding in a month then consider going down to once a week. He would let us know. - Continue Prilosec 40 mg once daily - Avoid non-steroidal anti-inflammatory medications (NSAIDs) including but not limited to Advil, ibuprofen, Motrin, Aleve, Excedrin, naproxen, Mobic, indomethacin, and aspirin. Acetaminophen (Tylenol) is okay for aches and pains. - He will f/u with dermatology regarding skin lesion. - Follow-up with Dr. Barlow in 4 months ?? 25 minutes of this 30 minutes appointment were spent in direct counseling regarding treatment of IBD. Please contact me if there are any further questions regarding the care of this patient. Shan Weinberg APRN [facility] Section of Gastroenterology [place] [address] documented in this encounter Miscellaneous Notes * Addendum Note - Andres De Dios - 09/29/2022 11:00 AM ESTAddended by: ANDRES DE DIOS on: 09/29/2022 12:05 PM Modules accepted: Orders documented in this encounter Plan of Treatment Upcoming Encounters Date Type Department Care Team (Late st Contact Info) Description 08/15/2024 9:00 AM EDT Office Visit Gastroenterology at [place] [phone] Dion Barlow MD [facility] [place] [address] 09/01/2024 11:20 AM EDT Office Visit Dermatology at [facility] [address] [place] [address] Gómez Mercer MD [facility] DR [place] [address] 09/21/2024 2:45 PM EDT Office Visit [facility] [place] [phone] Trung Hoyos MD [facility] [place] [address] documented as of this encounter Procedures Procedure Name Priority Date/Time Associated Diagnosis Comments HC VENIPUNCTURE Routine 09/29/2022 12:09 PM EST Other ulcerative colitis with rectal bleeding HC CREATININE Routine 09/29/2022 12:09 PM EST Left sided colitis without complications HC ESR-SEDIMENTATION RATE, BLOOD Routine 09/29/2022 12:09 PM EST Other ulcerative colitis with rectal bleeding documented in this encounter Results * Sedimentation rate (09/29/2022 12:09 PM EST) Sedimentation Rate Automated 38 3 - 46 mm/hr [facility] Comment: Effective November 02, 2019 new capillary photometric technology has resulted in a change in reference ranges. It is recommended that each ESR result be reviewed with its own age appropriate reference range. Blood 09/29/2022 12:0 9 PM EST 09/29/2022 12:15 PM EST Narrative Resulting Agency Comment Spec In Lab Marcelle Weinberg [employer] HEMATOLOGY ORDERA BLES [facility] [place] [address] * CRP, acute inflammation (09/29/2022 12:09 PM EST) C-Reactive Protein <3.0 <=4.9 mg/L [facility] Blood 09/29/2022 12:0 9 PM EST 09/29/2022 12:15 PM EST Narrative Resulting Agency Comment Spec In Lab Marcelle Dunnwill [employer] CHEMISTRY ORDERAB LES Performing Organization Address [facility] Co de Phone Number [facility] [place] [address] * Creatinine (09/29/2022 12:09 PM EST) Creatinine 1.10 0.80 - 1.50 mg/dL [facility] Est Glomerular Filtration Rate 70 >=60 mL/min/1. 73 m?? [facility] Comment: This patient's estimated [...] and symptoms in addition to eGFR. Blood 09/29/2022 12:0 9 PM EST 09/29/2022 12:15 PM EST Narrative Resulting Agency Comment Spec In Lab Marcelle Conte Dg Weinberg [employer] CHEMISTRY ORDERAB LES Performing Organization Address [facility] Co de Phone Number [facility] [place] [address] documented in this encounter Visit Diagnoses Diagnosis Left sided colitis without complications Left sided ulcerative (chronic) colitis Other ulcerative colitis with rectal bleeding documented in this encounter Care Teams Director Of Sustainability Relationship Specialty Start Date End Date Deacon Watters, JAZMINE [address] [place] [address] PCP - General Family Medicine 02/17/22 documented as of this encounter
--- OUTSIDE RECORDS SUMMARY | 2024-06-29 16:03 | XMS_ITS | Encounter Summary ---
Author Organization [facility] Address [facility] [place] [address] Care Team Providers Care Operating Room Aide Name Role Phone Deacon Watters APRN Primary Care Provider +1- [phone] Encounter Details Date Type Department Care Team (Latest Contact Info) Description 01/20/2024 9:28 AM EST - 01/20/2024 11:41 AM EST Hospital [place] [address] Anthony Hamlin MD [facility] [place] [address] Discharge Disposition: Home Social History Tobacco Use [...] Sign Reading Time Taken Comments Blood Pressure 158/83 01/20/2024 11:10 AM EST Pulse 61 01/20/2024 10:35 AM EST Temperature 36.3 ??C (97.3 ??F) 01/20/2024 9:44 AM ES T Respiratory Rate 18 01/20/2024 11:20 AM EST Oxygen Saturation 93% 01/20/2024 11:20 AM EST Inhaled Oxygen Concentration - - Weight 109.8 kg (242 lb) 01/20/2024 9:44 AM EST Height 193 cm (6' 4) 01/20/2024 9:44 AM EST Body Mass Index 29.46 01/20/2024 9:44 AM EST documented in this encounter Discharge Instructions * Discharge Instructions* Dari Price, RN - 01/20/2024 10:58 AM EST Colonoscopy: What to Expect at Home Your Recovery Your doctor will talk to you about when you will need your next colonoscopy. Your doctor can help you decide how often you need to be checked. This will depend on the results of your test and your risk for colorectal cancer. After the test, you may be bloated or have gas pains. You may need to pass gas. If a biopsy was done or a polyp was removed, you may have streaks of blood in your stool (feces) for a few days. Problems such as heavy rectal bleeding may not occur until several weeks after the test. This isn't common. But it can happen after polyps are removed. This care sheet gives you a general idea about how long it will take for you to recover. But each person recovers at a different pace. Follow the steps below to get better as quickly as possible. How can you care for yourself at home? Activity Rest when you feel tired. You can do your normal activities when it feels okay to do so. Diet Follow your doctor's directions for eating. Unless your doctor has told you not to, drink plenty of fluids. This helps to replace the fluids that were lost during the colon prep. Do not drink alcohol. Medicines Your doctor will tell you if and when you can restart your medicines. He or she will also give you instructions about taking any new medicines. If you take blood thinners, such as warfarin (Coumadin), clopidogrel (Plavix), or aspirin, be sure to talk to your doctor. He or she will tell you if and when to start taking those medicines again. Make sure that you understand exactly what your doctor wants you to do. If polyps were removed or a biopsy was done during the test, your doctor may tell you not to take aspirin or other anti-inflammatory medicines for a few days. These include ibuprofen (Advil, Motrin) and naproxen (Aleve). Other instructions For your safety, do not drive or operate machinery until the medicine wears off and you can think clearly. Your doctor may tell you not to drive or operate machinery until the day after your test. Do not sign legal documents or make major decisions until the medicine wears off and you can think clearly. The anesthesia can make it hard for you to fully understand what you are agreeing to. Additional Information for Sedation Patients For patients who received sedation: You may have received medications before and/or during your procedure which effects your judgement and reaction time. Do not drive, operate machinery, drink alcoholic beverages or make important decisions for 24 hours. Be careful on stairs as you may be unsteady on your feet. You may eat a regular diet as tolerated. Do not smoke if you are alone. IV site: Slight redness or tenderness is normal, you can use a warm compress if you would like. If tenderness and/or redness increase or if foul drainage occurs, please contact your Doctor. Please call [phone] before 8pm Mon-Fri with problems, questions or concerns. If you call after 8pm or on weekends, call the Hospital at [phone] and ask to speak to the Agriscience Instructor communication instructor and the profiling machine setup operator will contact that person for you. When should you call for help? Call [phone] anytime you think you may need emergency care. For example, call if: You passed out (lost consciousness). You pass maroon or bloody stools. You have trouble breathing. Call your doctor now or seek immediate medical care if: You have pain that does not get better after you take pain medicine. You are sick to your stomach or cannot drink fluids. You have new or worse belly pain. You have blood in your stools. You have a fever. You cannot pass stools or gas. Watch closely for changes in your health, and be sure to contact your doctor if you have any problems. Where can you learn more? [facility] View your After Visit Summary and more online at [email or web address] If you would like to provide feedback about your hospital experience, please call the Office of Patient and Family Relations at . If you have received this After Visit Summary in error, please immediately return it in person to the department, or notify the [facility] Privacy Office by calling toll free at between the hours of 8AM and 5PM to arrange for our retrieval of the documents at no cost to you. Content Version: 12.2 ?? 5469-0524 [employer]. Care instructions adapted under license by [facility]. If you have questions about a medical condition or this instruction, always ask your healthcare professional. [employer] disclaims any warranty or liability for your use of this information. documented in this encounter Medications at Time of Discharge Medication Sig Dispensed Refills Start Date End Date budesonide (Uceris) 2 mg/actuation FoamIndications:Left sided colitis [...] as needed for Wheezing. Use with spacer BASAGLAR KWIKPEN U-100 INSULIN 100 unit/mL (3 [...] capsule Take 40 mg by mouth daily. dicyclomine (Bentyl) 20 mg tablet TAKE ONE TABLET BY MOUTH EVERY 8 HOURS NEEDED 50 tablet 2 01/12/2024 02/23/2024 documented as of this encounter H&P Notes * Anthony Hamlin MD - 01/20/2024 9:32 AM EST Patient Name: Brian Rodriguez Patient Age: 73 y.o. Birthdate: 1950 Admit date: 01/20/2024 Attending Physician: Anthony Hamlin MD Gastroenterology and Hepatology Pre-Procedure History and Physical Exam Procedure: Colonoscopy: Indication: ulcerative colitis surveillance Patient Active Problem List Diagnosis Code Ulcerative colitis K51.90 Diabetes mellitus E11.9 Hearing loss H91.90 GERD (gastroesophageal reflux disease) K21.9 Hydrocele N43.3 Asthma J45.909 Anemia D64.9 EXAM: HEENT: Airway examined, oropharynx clear Mallampati Score: II (soft palate, uvula, fauces visible) LUNGS: Clear to auscultation HEART: Regular rate and rhythm, normal S1, S2 ABDOMEN: Normal bowel sounds, soft, non tender, non distended, A/P Proceed with the planned endoscopic procedure. ASA 2 - Patient with mild systemic disease with no functional limitations Sedation Plan: moderate (conscious sedation) Risks and benefits of the procedure explained to the patient. Consent signed. documented in this encounter Plan of Treatment Upcoming Encounters Date Type Department Care Team (Late st Contact Info) Description 08/15/2024 9:00 AM EDT Office [place] [phone] Dion Barlow MD [facility] [place] [address] 09/01/2024 11:20 AM EDT Office Visit Dermatology at [facility] [address] [place] [address] Gómez Mercer MD [facility] ED[facility]IE [place] [address] 09/21/2024 2:45 PM EDT Office Visit [place] [address] Trung Hoyos MD [facility] [place] [address] documented as of this encounter Procedures Procedure Name Priority Date/Time Associated Diagnosis Comments SPECIMEN TO PATHOLOGY Routine 01/20/2024 10:48 AM EST SPECIMEN TO PATHOLOGY Routine 01/20/2024 10:48 AM EST SPECIMEN TO PATHOLOGY Routine 01/20/2024 10:48 AM EST SPECIMEN TO PATHOLOGY Routine 01/20/2024 10:48 AM EST SPECIMEN TO PATHOLOGY Routine 01/20/2024 10:48 AM EST SPECIMEN TO PATHOLOGY Routine 01/20/2024 10:48 AM EST SURGICAL PATHOLOGY REPORT Routine 01/20/2024 10:24 AM EST Colonoscopy, Biopsy ([id number]) 01/20/2024 10:09 AM EST Left sided colitis without complications POCT GLUCOSE Routine 01/20/2024 10:05 AM EST POCT FINGERSTICK GLUCOSE Routine 01/20/2024 10:05 AM EST COLONOSCOPY Routine 01/20/2024 10:01 AM EST documented in this encounter Results * Specimen to Pathology (01/20/2024 10:48 AM EST) AP Specimen 01/20/2024 10:4 8 AM EST 01/20/2024 10:48 AM EST Narrative [facility] - 01/20/2024 10:48 AM EST Specimen requisition ordered. ??Separate Pathology report to follow Anthony Hamlin MD PATHOLOGY/CYTOLOGY O CEE Performing Organization Address [facility] Co de Phone Number [facility] [place] [place] [address] * Specimen to Pathology (01/20/2024 10:48 AM EST) AP Specimen 01/20/2024 10:4 8 AM EST 01/20/2024 10:48 AM EST Narrative [facility] - 01/20/2024 10:48 AM EST Specimen requisition ordered. ??Separate Pathology report to follow Anthony Hamlin MD PATHOLOGY/CYTOLOGY O CEE Performing Organization Address [facility] Co de Phone Number [facility] [place] [address] * Specimen to Pathology (01/20/2024 10:48 AM EST) AP Specimen 01/20/2024 10:4 8 AM EST 01/20/2024 10:48 AM EST Narrative [facility] - 01/20/2024 10:48 AM EST Specimen requisition ordered. ??Separate Pathology report to follow Anthony Hamlin MD PATHOLOGY/CYTOLOGY O CEE Performing Organization Address [facility] Co de Phone Number [facility] [place] [address] * Specimen to Pathology (01/20/2024 10:48 AM EST) AP Specimen 01/20/2024 10:4 8 AM EST 01/20/2024 10:48 AM EST Narrative [facility] - 01/20/2024 10:48 AM EST Specimen requisition ordered. ??Separate Pathology report to follow Anthony Hamlin MD PATHOLOGY/CYTOLOGY O CEE Performing Organization Address [facility] de Phone Number [facility] [place] [address] * Specimen to Pathology (01/20/2024 10:48 AM EST) AP Specimen 01/20/2024 10:4 8 AM EST 01/20/2024 10:48 AM EST Narrative [facility] - 01/20/2024 10:48 AM EST Specimen requisition ordered. ??Separate Pathology report to follow Anthony Hamlin MD PATHOLOGY/CYTOLOGY Ozzie MIKE Performing Organization Address [facility] de Phone Number [facility] [place] [address] * Specimen to Pathology (01/20/2024 10:48 AM EST) AP Specimen 01/20/2024 10:4 8 AM EST 01/20/2024 10:48 AM EST Narrative [facility] - 01/20/2024 10:48 AM EST Specimen requisition ordered. ??Separate Pathology report to follow Anthony Hamlin MD PATHOLOGY/CYTOLOGY Ozzie MIKE Performing Organization Address [facility] de Phone Number [facility] [place] [address] * Surgical Pathology Report (01/20/2024 10:24 AM EST) Final Diagnosis [id number] ? Location: 4T; EA12; A The signing pathologist has (i) examined the relevant preparation(s) for the specimen(s) and (ii) rendered or confirmed the diagnosis(es). . ?Surgical Pathology DIAGNOSIS A - Right colon, biopsy (Multiple): - ??Colonic mucosa, negative for diagnostic abnormality. B - Ascending colon polyp, biopsy: - ??Inflammatory polyp. C - Transverse colon, biopsy (Multiple): - ??Colonic mucosa, negative for diagnostic abnormality. D - Transverse colon polyps, biopsy: - ??Fragments of hyperplastic polyp. E - Descending colon, biopsy (Multiple): - ??Colonic mucosa, negative for diagnostic abnormality. F - Recto sigmoid, biopsy (Multiple): - ??Moderately active chronic colitis, negative for dysplasia. CR-PX Electronically signed by: ?Candace HARVEY, Dilip Verified: ??01/29/2024 12:04 ??Pathologist Performed at: ??-[facility] Dept. of Pathology, [place] [address] Porcelain Mixer: Joana Soler MD, FCAP, ??CLIA Certificate: [id number] SPECIMEN(S) SUBMITTED A - right colon, biopsy (Multiple) B - Ascending colon polyp, biopsy (1) C - Transverse colon, biopsy (Multiple) D - transverse colon polyps, biopsy (2) E - Descending colon, biopsy (Multiple) F - Recto sigmoid, biopsy (Multiple) CLINICAL INFORMATION 73-year-old male surveillance colonoscopy for history of Crohn's SPECIMEN PROCESSING A - Labeled/Fixative : Right colon, formalin. Quantity/Size: Five, ranging from 0.3 to 0.5 cm. Tissue Description: Soft, pink tissues. Sections/Process ing: Submitted in toto ??in 1 cassette labeled A1. B - Labeled/Fixative : Ascending colon polyp, formalin. Quantity/Size: Single, 1.4 x 0.9 x 0.1 cm. Tissue Description: Soft, pink tissue. Sections/Process ing: Quadrisected and entirely submitted in 1 cassette labeled B1. . SPECIMEN PROCESSING C - Labeled/Fixative : Transverse colon, formalin. Quantity/Size: Three, averaging 0.4 cm. Tissue Description: Soft, pink tissues. Sections/Process ing: Submitted in toto ??in 1 cassette labeled C1. D - Labeled/Fixative : Transverse colon polyps, formalin. Quantity/Size: Two, 0.3 x 1.3 cm. Tissue Description: Soft, stephen-pink tissues. Sections/Process ing: Submitted in toto ??in 1 cassette labeled D1. E - Labeled/Fixative : Descending colon, formalin. Quantity/Size: Five, ranging from 0.3 to 0.8 cm. Tissue Description: Soft, pink-red tissues. Sections/Process ing: Submitted in toto ??in 1 cassette labeled E1. F - Labeled/Fixative : Rectosigmoid, formalin. Quantity/Size: Four, averaging 0.4 cm. Tissue Description: Soft, pink tissues. Sections/Process ing: Submitted in toto ??in 1 cassette labeled F1. ??sns 01/29/2024 12:04 PM EST [facility] GI Biopsy 01/20/2024 10:2 4 AM EST 01/20/2024 10:24 AM EST GI Biopsy 01/20/2024 10:2 4 AM EST 01/20/2024 10:24 AM EST GI Biopsy 01/20/2024 10:2 4 AM EST 01/20/2024 10:24 AM EST GI Biopsy 01/20/2024 10:2 4 AM EST 01/20/2024 10:24 AM EST GI Biopsy 01/20/2024 10:2 4 AM EST 01/20/2024 10:24 AM EST GI Biopsy 01/20/2024 10:2 4 AM EST 01/20/2024 10:24 AM EST Anthony Hamlin MD PATHOLOGY/CYTOLOGY O CEE Performing Organization Address [facility] Co de Phone Number [facility] [address] [place] [address] * POCT Glucose (01/20/2024 10:05 AM EST) Glucose, POC 114 65 - 199 mg/dL [facility] Comment: Supplemental ranges: <140 mg/dL before meals <180 mg/dL all other times of the day Blood 01/20/2024 10:0 5 AM EST 01/20/2024 10:05 AM EST Anthony Hamlin MD POINT OF CARE TEST O CEE [facility] [place] [address] * POCT Fingerstick Glucose (01/20/2024 10:05 AM EST) Glucose, POC 114 60 - 199 mg/dl 01/20/2024 10:0 5 AM EST Anthony Hamlin MD POINT OF CARE TEST O RDERABLES * COLONOSCOPY (01/20/2024 10:01 AM EST) COLONOSCOPY [facility] Endoscopy Procedure Date: 01/20/2024 10:01 AM ? Patient Name: Brian Rodriguez ? N: [id number] ? Date of : 1950 ? Age: 73 ? Order #: [id number] ? Instrument Name: [id number] ? Procedure: ? Colonoscopy Indications: ? Follow-up of left-sided chronic ? ulcerative colitis Providers: ? Anthony Hamlin, Danyell Doyle, ? Marcos Friedman Referring : ?Davina Cárdenas ? MD Cain Medicines: ? [...] ? physician, the nurse and the ? customer service technician in the pre-procedure ? area in the [...] 01/20/2024 10:0 1 AM EST Deacon Watters APRN GENERAL SURGICAL O RDERABLES [employer] documented in this encounter Visit Diagnoses Not on filedocumented in this encounter Administered Medications Inactive Administered Medications - up to 3 most recent administrations Medication Order MAR Action Action Date Dose Rate Site lactated ringers infusion 100 mL/hr, Intravenous, CONTINUOUS, Starting on Thu01/20/24 at 1000, Until Thu01/20/24 at 1122, Endoscopy (Day of Procedure) New Bag 01/20/2024 10:08 AM EST 100 mL/hr 100 mL/hr ondansetron ODT (Zofran-ODT) disintegrating tablet 4 mg 4 mg, Oral, ONCE, 1 dose, On Thu01/20/24 at 1200, Endoscopy (Intra-Procedure), Routine Given 01/20/2024 12:00 PM EST 4 mg documented in this encounter Active and Recently Administered Medications Times are shown in EST. Scheduled Medication Order 01/18/2024 01/19/2024 01/20/2024 ondansetron ODT (Zofran-ODT) disintegrating tablet 4 mg (COMPLETED) 4 mg, Oral, ONCE, 1 dose, On Thu01/20/24 at 1200, Endoscopy (Intra-Procedure), Routine 1200 (Given - Provid er: Georgie Hammond RN) Continuous Medication Order 01/18/2024 01/19/2024 01/20/2024 lactated ringers infusion (CANCELED) 100 mL/hr, Intravenous, CONTINUOUS, Starting on Thu01/20/24 at 1000, Until Thu01/20/24 at 1122, Endoscopy (Day of Procedure) 1008 (New Bag - Prov ider: Mily Swartz RN) PRN Medication Order 01/18/2024 01/19/2024 01/20/2024 fentaNYL (pf) (50 mcg/mL) multi-dose injection (CANCELED) PRN, Starting on Thu01/20/24 at 1010, Until Thu01/20/24 at 1341, Intra-Operative (Intra-Procedure), Routine 1010 (Given - Provid er: Danyell Doyle RN)1013 (Given - Provider: Danyell Doyle RN)1021 (Given - Provider: Danyell Doyle RN)1030 (Given - Provider: Danyell Doyle RN) midazolam (pf) (Versed) (1 mg/mL) multi-dose injection (CANCELED) PRN, Starting on Thu01/20/24 at 1010, Until Thu01/20/24 at 1341, Intra-Operative (Intra-Procedure), Routine 1010 (Given - Provid er: Danyell Doyle RN)1013 (Given - Provider: Danyell Doyle RN)1016 (Given - Provider: Danyell Doyle RN)1029 (Given - Provider: Danyell Doyle RN) documented in this encounter Care Teams Operating Room Aide Relationship Specialty Start Date End Date Deacon Watters, JAZMINE [address] [place] [address] PCP - General Family Medicine 02/17/22 documented as of this encounter
--- OUTSIDE RECORDS SUMMARY | 2024-06-29 16:03 | XMS_ITS | Encounter Summary ---
Author Organization [facility] [place] [address] Care Team Providers Care Customer Resolution Specialist Name Role Phone Deacon Watters APRN Primary Care Provider +1- [phone] Encounter Details Date Type Department Care Team (Late st Contact Info) Description 02/26/2022 Telephone [place] [phone] Erika Armas Social History Tobacco Use Types Packs/Day Years [...] encounter Miscellaneous Notes * Telephone Encounter - Erika Armas - 02/26/2022 1:04 PM EDT Brian Rodriguez [id number] Diagnosis/Indication: UC, restage disease and for surveillance 1. Have you ever had a/an Colonoscopy before? Yes: Date 02/26/21 If yes, did you have any problems with the procedure? No What type of sedation was used: IV Conscious Sedation 2. Do you take any blood thinners or have you been diagnosed with a bleeding disorder that increases your risk of bleeding with procedures? No 3. Do you have a Pacemaker or Defibrillator device? No 4. Are you a diabetic? Yes: Controlled by diet or medication? Both 5. Do you have any Allergies to Eggs, Latex or Medications? Yes: EDH 6. Do you take any Oral Iron Supplements (Including multi-vitamins)? No 7. Do you have a history of three or more abdominal surgeries? No 8. Have you had a problem with sedation or anesthesia? No 9. Do you use a c-pap machine or oxygen tank? Neither 10. Do you take prescription narcotic pain medications, including suboxone or methodone? No 11. Do you have a preference regarding the gender of your provider? No Preference 12. Is there any other information you would like to us to note for the provider and nursing team who will perform your case? No 13. Say to patient: You must have a responsible green party who will drive you to your procedure, stay [place] for the entire duration of your procedure, and drive you home from your procedure? *Please Verify the height and weight, and adjust if height and/or weight have changed* Estimated body mass index is 31.15 kg/m?? as calculated from the following: Height as of 02/17/22: 193 cm (6' 4). Weight as of 02/17/22: 116.1 kg (255 lb 14.4 oz). Age:71 y.o. documented in this encounter Plan of Treatment Upcoming Encounters Date Type Department Care Team (Late st Contact Info) Description 08/15/2024 9:00 AM EDT Office Visit [place] [address] Dion Barlow MD [facility] [place] [address] 09/01/2024 11:20 AM EDT Office Visit Dermatology at [facility] [address] [place] [phone] Gómez Mercer MD [facility] [address] [place] [address] 09/21/2024 2:45 PM EDT Office Visit [facility] [place] [address] Trung Hoyos MD [facility] [place] [address] documented as of this encounter Visit Diagnoses Not on filedocumented in this encounter Care Teams Customer Resolution Specialist Relationship Specialty Start Date End Date Deacon Watters, BOBCAT DRIVER/LABOR [address] [place] [address] [address] [place] [address] PCP - General Family Medicine 02/17/22 documented as of this encounter
--- OUTSIDE RECORDS SUMMARY | 2024-06-29 16:03 | XMS_ITS | Encounter Summary ---
Author Organization [facility] [place] [address] Care Team Providers Care International Marketing Coordinator Name Role Phone Deacon Watters APRN Primary Care Provider +1- [phone] Encounter Details Date Type Department Care Team (Late st Contact Info) Description 10/27/2023 Ancillary Procedure [place] [phone] Deacon Watters APRN [address] [place] [address] Social History Tobacco Use Types Packs/Day Years [...] 9:00 AM EDT Office [place] [phone] Dion Barlow MD [facility] [place] [address] 09/01/2024 11:20 AM EDT Office Visit Dermatology at [facility] [address] [place] [address] Gómez Mercer MD [facility] DR EDD[place] [address] 09/21/2024 2:45 PM EDT Office Visit Pain and Spine Center at [facility] [place] [address] Trung Hoyos MD [facility] [place] [address] documented as of this encounter Procedures Procedure Name Priority Date/Time Associated Diagnosis Comments FILM LIBRARY STORAGE ONLY MR SPINE Routine 10/27/2023 12:00 AM EST documented in this encounter Results * Film Library- Storage Only MR Spine (10/27/2023 12:00 AM EST) Narrative [facility] - 11/11/2023 10:39 AM EST This exam is auto-finalizing. It's purpose is for storage only. Deacon Watters APRN IMG FILM LIBRARY O RDERABLES [place], [place] documented in this encounter Visit Diagnoses Not on filedocumented in this encounter Care Teams International Marketing Coordinator Relationship Specialty Start Date End Date Deacon Watters APRN [address] [place] [address] PCP - General Family Medicine 02/17/22 documented as of this encounter
--- OUTSIDE RECORDS SUMMARY | 2024-06-29 16:03 | XMS_ITS | Encounter Summary ---
Author Organization [facility] Address [facility] [place]ina [place] [address] Care Team Providers Care Early Childhood Worker Name Role Phone Deacon Watters APRN Primary Care Provider +1- [phone] Encounter Details Date Type Department Care Team (Latest Contact Info) Description 12/07/2023 Travel Social History Tobacco Use Types Packs/Day [...] 9:00 AM EDT Office [place] [address] Dion Barlow MD [facility] [place] [address] 09/01/2024 11:20 AM EDT Office Visit Dermatology at [facility] [address] [place] [id number] Gómez Mrecer MD [facility] DR [place] [address] 09/21/2024 2:45 PM EDT Office Visit [place] [address] Trung Hoyos MD [facility] [place] [address] documented as of this encounter Visit Diagnoses Not on filedocumented in this encounter Care Teams Early Childhood Worker Relationship Specialty Start Date End Date Deacon Watters, PARAMEDIC [address] [place] [address] PCP - General Family Medicine 02/17/22 documented as of this encounter
--- OUTSIDE RECORDS SUMMARY | 2024-06-29 16:03 | XMS_ITS | Encounter Summary ---
Author Organization [facility] Address [facility] [place] [address] Care Team Providers Care Cyber Software Engineer Name Role Phone Deacon Watters APRN Primary Care Provider +1- [phone] Encounter Details Date Type Department Care Team (Late st Contact Info) Description 01/20/2024 10:15 AM EST - 01/20/2024 11:00 AM EST Surgery [place] [address] Anthony Hamlin MD [facility] [place] [address] COLONOSCOPY FLEXIBLE, WITH BX (WRVU 3.56) Social History Tobacco Use Types Packs/Day Years [...] Sign Reading Time Taken Comments Blood Pressure 154/82 01/20/2024 11:00 AM EST Pulse 61 01/20/2024 10:35 AM EST Temperature 36.3 ??C (97.3 ??F) 01/20/2024 9:44 AM ES T Respiratory Rate 18 01/20/2024 11:00 AM EST Oxygen Saturation 92% 01/20/2024 11:00 AM EST Inhaled Oxygen Concentration - - [...] occurs, please contact your Doctor. Please call [phone] before 8pm Mon-Fri with problems, questions or concerns. If you call after 8pm or on weekends, call the Hospital at [phone] and ask to speak to the [place] home demonstrator and the gasoline truck operator will contact that person for you. When should you call for help? Call [phone] anytime you think you may need emergency [...] any problems. Where can you learn more? [facility] View your After Visit Summary and more online at [email or web address] If you would like to provide feedback about your hospital experience, please call the Office of Patient and Family Relations at . If you have received this After Visit Summary in error, please immediately return it in person to the department, or notify the [facility] Privacy Office by calling toll free at between the hours of 8AM and 5PM to arrange for our retrieval of the documents at no cost to you. Content Version: 12.2 ?? [id number] [employer]. Care instructions adapted under license by [facility]. If you have questions about a medical condition or this instruction, always ask your healthcare professional. [employer] disclaims any warranty or liability for your [...] 9:00 AM EDT Office Visit [place] [phone] Dion Barlow MD [facility] [place] [address] 09/01/2024 11:20 AM EDT Office Visit Dermatology at [facility] [address] [place] [address] Gómez Mercer MD [facility] [place] [address] 09/21/2024 2:45 PM EDT Office Visit [facility] [place] [address] Trung Hoyos MD [facility] [place] [address] documented as of this encounter Procedures Procedure [...] Routine 01/20/2024 10:24 AM EST Colonoscopy, Biopsy (08607) 01/20/2024 10:09 AM EST Left sided colitis without complications POCT GLUCOSE Routine 01/20/2024 10:05 AM EST POCT FINGERSTICK GLUCOSE Routine 01/20/2024 10:05 AM EST COLONOSCOPY Routine 01/20/2024 10:01 AM EST documented in this encounter Results * Specimen to Pathology (01/20/2024 10:48 AM EST) AP Specimen 01/20/2024 10:4 8 AM EST 01/20/2024 10:48 AM EST Narrative [facility] - 01/20/2024 10:48 AM EST Specimen requisition ordered. ??Separate Pathology report to follow Anthony Hamlin MD PATHOLOGY/CYTOLOGY O CEE Performing Organization Address City/[facility] Co de Phone Number [facility] [place] [address] * Specimen to Pathology (01/20/2024 10:48 AM EST) AP Specimen 01/20/2024 10:4 8 AM EST 01/20/2024 10:48 AM EST Narrative [facility] - 01/20/2024 10:48 AM EST Specimen requisition ordered. ??Separate Pathology report to follow Anthony Hamlin MD PATHOLOGY/CYTOLOGY O CEE Performing Organization Address [facility] Co de Phone Number [facility] [place] [address] * Specimen to Pathology (01/20/2024 10:48 AM EST) AP Specimen 01/20/2024 10:4 8 AM EST 01/20/2024 10:48 AM EST Narrative [facility] - 01/20/2024 10:48 AM EST Specimen requisition ordered. ??Separate Pathology report to follow Anthony Hamlin MD PATHOLOGY/CYTOLOGY O CEE Performing Organization Address [facility]/ZIP Co de Phone Number [facility] [place] [address] * Specimen to Pathology (01/20/2024 10:48 AM EST) AP Specimen 01/20/2024 10:4 8 AM EST 01/20/2024 10:48 AM EST Narrative [facility] - 01/20/2024 10:48 AM EST Specimen requisition ordered. ??Separate Pathology report to follow Anthony Hamlin MD PATHOLOGY/CYTOLOGY O CEE Performing Organization Address [facility] [place] [address] * Specimen to Pathology (01/20/2024 10:48 AM EST) AP Specimen 01/20/2024 10:4 8 AM EST 01/20/2024 10:48 AM EST Narrative [facility] - 01/20/2024 10:48 AM EST Specimen requisition ordered. ??Separate Pathology report to follow Anthony Hamlin MD PATHOLOGY/CYTOLOGY O CEE Performing Organization Address [facility] [place] [address] * Specimen to Pathology (01/20/2024 10:48 AM EST) AP Specimen 01/20/2024 10:4 8 AM EST 01/20/2024 10:48 AM EST Narrative [facility] - 01/20/2024 10:48 AM EST Specimen requisition ordered. ??Separate Pathology report to follow Authorizing Provider Result Jonel Hamlin MD PATHOLOGY/CYTOLOGY O CEE Performing Organization Address [facility] [place] [address] * Surgical Pathology Report (01/20/2024 10:24 AM EST) Final Diagnosis [id number] ? Location: 4T; EA12; A The signing [...] Dilip Verified: ??01/29/2024 12:04 ??Pathologist Performed at: ??-[facility] Dept. of Pathology, [place] [address] Coding Team Lead: Joana Soler MD, FCAP, ??CLIA Certificate: [id number] SPECIMEN(S) SUBMITTED A - right colon, biopsy [...] labeled F1. ??sns 01/29/2024 12:04 PM EST [facility] GI Biopsy 01/20/2024 10:2 4 [...] AM EST Anthony Hamlin MD PATHOLOGY/CYTOLOGY O RDMELISSA Performing Organization Address City/[facility] Co de Phone Number [facility] [address] [place] [address] * POCT Glucose (01/20/2024 10:05 AM EST) Glucose, POC 114 65 - 199 mg/dL [facility] Comment: Supplemental ranges: <140 mg/dL before meals <180 mg/dL all other times of the day Blood 01/20/2024 10:0 5 AM EST 01/20/2024 10:05 AM EST Anthony Hamlin MD POINT OF CARE TEST O RDERAOMAR Performing Organization Address City/[facility] Co de Phone Number [facility] [place] [address] * POCT Fingerstick Glucose (01/20/2024 10:05 AM EST) Glucose, POC 114 60 - 199 mg/dl 01/20/2024 10:0 5 AM EST Anthony Hamlin MD POINT OF CARE TEST O RDERABLES * COLONOSCOPY (01/20/2024 10:01 AM EST) COLONOSCOPY [facility] Endoscopy Procedure Date: 01/20/2024 10:01 AM ? Patient Name: Brian Rodriguez ? N: [id number] ? Date of : 1950 ? Age: 73 ? Order #: [id number] ? Instrument Name: [id number] ? Procedure: ? Colonoscopy Indications: ? Follow-up [...] ? physician, the nurse and the ? plumbing technician in the pre-procedure ? area in [...] 01/20/2024 10:0 1 AM EST Deacon Watters TITLE INSURANCE AGENT GENERAL SURGICAL O RDERABLES [employer]OVATION documented in this encounter Visit Diagnoses Diagnosis Left sided colitis without complications Left sided ulcerative (chronic) colitis documented in this encounter Administered Medications Inactive Administered Medications - up to 3 most recent administrations Medication Order MAR Action Action Date Dose Rate Site fentaNYL (pf) (50 mcg/mL) multi-dose injection PRN, Starting on Thu01/20/24 at 1010, Until Thu01/20/24 at 1341, Intra-Operative (Intra-Procedure), Routine Given 01/20/2024 10:30 AM EST 50 mcg Given 01/20/2024 10:21 AM EST 50 mcg Given 01/20/2024 10:13 AM EST 50 mcg lactated ringers infusion 100 mL/hr, Intravenous, CONTINUOUS, Starting on Thu01/20/24 at 1000, Until Thu01/20/24 at 1122, Endoscopy (Day of Procedure) New Bag 01/20/2024 10:08 AM EST 100 mL/hr 100 mL/hr midazolam (pf) (Versed) (1 mg/mL) multi-dose injection PRN, Starting on Thu01/20/24 at 1010, Until Thu01/20/24 at 1341, Intra-Operative (Intra-Procedure), Routine Given 01/20/2024 10:29 AM EST 1 mg Given 01/20/2024 10:16 AM EST 1 mg Given 01/20/2024 10:13 AM EST 1 mg ondansetron ODT (Zofran-ODT) disintegrating tablet 4 mg [...] RN) documented in this encounter Care Teams Cyber Software Engineer Relationship Specialty Start Date End Date Deacon Watters APRN [address] [place] [address] PCP - General Family Medicine 02/17/22 documented as of this encounter
--- OUTSIDE RECORDS SUMMARY | 2024-06-29 16:03 | XMS_ITS | Encounter Summary ---
Author Organization [facility] Address [facility] [place] [address] Care Team Providers Care Sprinkler Installer Name Role Phone Deacon Watters APRN Primary Care Provider [phone]- [phone] Reason for Referral * Diagnostic Test (Routine) - Closed Specialty Diagnoses / Procedures Referred By Contac t Referred To Contact Radiology Diagnoses Left sided colitis without complications Procedures CT Abdomen & Pelvis w Contrast Dion Barlow MD [facility] [place] [place] [address] Referral ID Status Reason Start Date Expiration Date V isits Requested Visits Authorized [id number] Closed Specialty Service Requested 04/22/2022 10/22/2023 1 1 Encounter Details Date Type Department Care Team (Late st Contact Info) Description 04/22/2022 8:00 AM EDT Office [place] [address] Dion Barlow MD [facility] [place] [place] [address] Left sided colitis without complications; Tick bite of abdominal wall, initial encounter; Gastroesophageal reflux disease, unspecified whether esophagitis present Social History Tobacco Use Types Packs/Day Years [...] Sign Reading Time Taken Comments Blood Pressure 157/69 04/22/2022 7:46 AM EDT Pulse 65 04/22/2022 7:46 AM EDT Temperature - - Respiratory Rate - - Oxygen Saturation - - Inhaled Oxygen Concentration - - Weight 112.9 kg (249 lb) 04/22/2022 7:46 AM EDT Height 193 cm (6' 4) 04/22/2022 7:46 AM EDT Body Mass Index 30.31 04/22/2022 7:46 AM EDT documented in this encounter Patient Instructions * Patient Instructions* Dion Barlow MD - 04/22/2022 8:30 AM EDT - CT scan to be arranged at [facility] in [facility] for left lower quadrant abd pain. - Check labs today including creatinine, complete blood count, and inflammatory markers - Continue Sulfasalazine 3 tabs twice daily - Use Uceris foam twice per week to maintain ulcerative colitis - Continue Prilosec 40 mg once daily - Avoid non-steroidal anti-inflammatory medications (NSAIDs) including but not limited to Advil, ibuprofen, Motrin, Aleve, Excedrin, naproxen, Mobic, indomethacin, and aspirin. Acetaminophen (Tylenol) is okay for aches and pains. - Keep an eye on the tick bite on your abdomen. If redness spreads, call Deacon Watters APRN for treatment for Lyme disease. - Follow-up with Farideh Weinberg APRN in 6 months or sooner as needed documented in this encounter Progress Notes * Dion Barlow MD - 04/22/2022 8:00 AM EDT IBD CENTER ESTABLISHED PATIENT VISIT Primary care provider: Deacon Watters APRN Reason for visit:Ulcerative colitis f/u Problem List Patient Active Problem List Diagnosis Date Noted ??? Ulcerative colitis 10/01/2011 Priority: High ??? Anemia 08/25/2021 ??? Diabetes mellitus 10/01/2011 ??? Hearing loss 10/01/2011 ??? GERD (gastroesophageal reflux disease) 10/01/2011 ??? Hydrocele 10/01/2011 ??? Asthma 10/01/2011 Resolved Hospital Problems No resolved problems to display. Detailed IBD History: ??? Ulcerative colitis ? Overview Note: ? Colonoscopy 04/08/10 (Dr. Gomes [facility]) - inflammation only within the rectum and sigmoid; extent of the exam was to the hepatic flexure; biopsies proximal to the sigmoid nl ?? Repeat exam 11/27/11 ([facility]): mildly active colitis in the sigmoid colon [...] Interval History: Last visit with Farideh Mathur [employer] 01/2022 Just had colo with Dr. Turner in 03/2022 with Calvo 1 involvement within the sigmoid and a 3 mm TA in the transverse colon On Sulfasalazine 3 tabs bid and Uceris foam three days per week He is having BMs 2-3 times per day for formed stool and no bleeding for a few weeks. Stool is formed. Urgency improved. There is some abd pain interior to the umbilicus and towards LLQ that radiates to LUQ. It is betterafter BM. No fevers. No N/V. Weight stable No f/c No n/v No heartburn sxs as long as takes Prilosec once daily. He avoids all NSAID's and takes only Tylenol for aches/pains. Review of systems as in the HPI, the rest of the review of systems were negative. Has chronic L shoulder pain. Many tick bites as of late. PHYSICAL EXAMINATION: Patient Vitals for the past 24 hrs: Pulse BP 04/22/22 0746 65 157/69 Wt Readings from Last 3 Encounters: 04/22/22 112.9 kg (249 lb) 03/28/22 111.1 kg (245 lb) 02/17/22 116.1 kg (255 lb 14.4 oz) Body mass index is 30.31 kg/m??. GEN: Healthy-appearing in no acute distress. Appears stated age. Cooperative and answers questions appropriately. SKIN: 2 mm halo of erythema around tick bite centrally located in epigastrium. NECK: No adenopathy and no thyromegaly. HEENT: PERRL, EOMI, REED MAN and OP clear without ulceration or lesions. LUNGS: Clear to auscultation bilaterally. COR: Regular, normal S1 and S2 without murmurs ABD: Normal active bowel sounds. Soft and non-distended. Moderate tenderness to palpation in LLQ. Volunteer guarding. No rebound. No inguinal hernia appreciated supine or standing. EXT: No cyanosis, clubbing or edema. Recent labs Admission on 03/28/2022, Discharged on 03/28/2022 Component Date Value Ref Range Status ??? COLONOSCOPY 03/28/2022 Final Value:[facility] Endoscopy Procedure Date: 03/28/2022 3:15 PM Patient Name: Brian Rodriguez Date of : 1950 Age: 71 Order #: [id number] Instrument Name: [id number] Procedure: Colonoscopy Indications: Follow-up of ulcerative colitis Providers: Mona Turner MD, April Archibald, RN, Shay Marques Referring MD: Davina Barlow MD, Deacon Watters Medicines: Midazolam 4 mg IV, Fentanyl 100 micrograms IV Comp lications: No immediate complications. Procedure: Pre-Anesthesia Assessment: - Prior to the procedure, a History and Physical was performed, and patient medications and allergies were reviewed. The patient's tolerance of previous anesthesia was also reviewed. The risks and benefits of the procedure and the sedation options and risks were discussed with the patient. All questions were answered, and informed consent was obtained. Prior Anticoagulants: The patient has taken no anticoagulant or antiplatelet agents. ASA Grade Assessment: II - A patient with mild systemic disease. After reviewing the risks and benefits, the patient was deemed in satisfactory condition to undergo the procedure. The procedure, indications, benefits, risks [...] and under direct visualization, advanced to the cecum, identified by appendiceal orifice and ileocecal valve. Careful inspection was made as the colonoscope was withdrawn. The colonoscopy was performed without difficulty. The patient tolerated the procedure well. The quality of the bowel preparation was evaluated using the BBPS ([place] Bowel Preparation Scale) with scores of: Right Colon = 3, Transverse Colon = 3 and Left Colon = 3 (entire mucosa seen well with no residual staining, small fragments of stool or opaque liquid). The total BBPS score equals 9. The ileocecal valve, appendiceal orifice, and rectum were photographed. Withdrawal time was 14 minutes. Findings: The perianal and digital rectal examinations were normal. A 3 mm polyp was found in the transverse colon. The polyp was flat. The polyp was removed with a cold snare. Resection and retrieval were complete. Estimated blood loss: none. A tattoo was seen in the descending colon. The tattoo site appeared normal. Inflammation characterized by erythema was found as patches surrounded by normal mucosa in the sigmoid colon in areas of diverticulum. The sigmoid colon was spared. The inflammation was graded as Calvo Score 1 (mild, with erythema, decreased vascular pattern, mild friability). Biopsies were taken with a cold forcep s for histology. Estimated blood loss: none. The rectum appeared normal. Biopsies were taken with a cold forceps for histology. Estimated blood loss: none. The retroflexed view of the distal rectum and anal verge was normal and showed no anal or rectal abnormalities. Moderate Sedation: I was present during the intraservice time as documented by the sedation RN. Impression: - One 3 mm polyp in the transverse colon, removed with a cold snare. Resected and retrieved. - A tattoo was seen in the descending colon. The tattoo site appeared normal. - Ulcerative colitis. Inflammation was found in the sigmoid colon. This was graded as Calvo Score 1 (mi ld disease). Biopsied. - The rectum is normal. Biopsied. - The distal rectum and anal verge are normal on retroflexion view. Recommendation: - Await pathology results. - Repeat colonoscopy for surveillance based on pathology results. - Return to referring physician. Procedure Code(s): --- Professional --- 19268, Colonoscopy, flexible; with removal of tumor(s), polyp(s), or other lesion(s) by snare technique 40564, 59, Colonoscopy, flexible; with biopsy, single or multiple CPT copyright 2020 [employer]. All rights reserved. The codes documented in this report are preliminary and upon detail drafter review may be revised to meet current compliance requirements. Attending Participation: I personally performed the entire procedure. Mona Turner MD Mona Turner MD 03/28/2022 4:33:58 PM This report has been signed electronically. Number of Addenda: 0 Note Initiated On: 03/28/2022 3:15 PM ??? Surgical Pathology Report 03/28/2022 Final Value:[id number] Location: 4T; EA12; A The signing pathologist has (i) examined the relevant preparation(s) for the specimen(s) and (ii) rendered or confirmed the diagnosis(es). . Surgical Pathology DIAGNOSIS A - Sigmoid bx, biopsy: - Mildly active chronic colitis. - There is no evidence of dysplasia. B - Rectal bx, biopsy: - Inactive chronic colitis. - There is no evidence of dysplasia. C - 3mm transverse colon polyp, resection: - Tubular adenoma with mucosal prolapse. - The cauterized resection margin is free of adenomatous epithelium. - Multiple levels examined. Electronically signed by: Nitza HARVEY PhD, Christina Verified: 04/03/2022 15:08 Pathologist Performed at: -[facility] Dept. of Pathology, [place], [place] SPECIMEN(S) SUBMITTED A - Sigmoid bx, biopsy (1) B - Rectal bx, biopsy (1) C - 3mm transverse colon polyp, resection (1) CLINIC AL INFORMATION F/U ulcerative colitis SPECIMEN PROCESSING A - Labeled/Fixative: Sigmoid biopsy, formalin. Quantity/Size: Four, ranging 0.2-0.5 cm. Tissue Description: Soft, stephen tissues. Sections/Processing: Submitted en toto in 1 cassette labeled A1. B - Labeled/Fixative: Rectal BX, formalin. Quantity/Size: Three, 0.2-0.4 cm. Tissue Description: Soft, red-stephen tissues. Sections/Processing: Submitted en toto in 1 cassette labeled B1. C - Labeled/Fixative: 3 mm transverse colon polyp, formalin. Quantity/Size: Two, 0.6 x 0.1 cm, and 1.0 x 0.3 cm. Tissue Description: Stephen and stephen-red strips of mucosal tissue. Sections/Processing: Submitted en toto in 1 cassette labeled C1. [facility] Outpatient Visit on 02/19/2022 Component Date Value Ref Range Status ? ? Calprotectin, Stool 02/19/2022 55 <=79 mcg/g Final Office Visit on 02/17/2022 Component Date Value Ref Range Status ? ? CRP 02/17/2022 5.0 (A) <=4.9 mg/L Final ??? Sed Rate 02/17/2022 64 (A) 3 - 46 mm/hr Final ??? Glucose Lvl 02/17/2022 94 65 - 199 mg/dL Final ??? BUN 02/17/2022 14 10 - 20 mg/dL Final ??? Creatinine 02/17/2022 1.06 0.80 - 1.50 mg/dL Final ??? Sodium 02/17/2022 144 135 - 145 mmol/L Final ??? Potassium 02/17/2022 3.9 3.5 - 5.0 mmol/L Final ??? Chloride 02/17/2022 107 98 - 107 mmol/L Final ??? CO2 02/17/2022 26 22 - 31 mmol/L Final ??? Anion Gap 02/17/2022 11 5 - 15 mmol/L Final ??? Calcium 02/17/2022 9.7 8.5 - 10.5 mg/dL Final ??? Total Protein 02/17/2022 8.0 6.1 - 8.0 g/dL Final ??? Albumin 02/17/2022 4.3 3.2 - 5.2 g/dL Final ??? AST 02/17/2022 10 0 - 39 unit/L Final ??? ALT 02/17/2022 17 0 - 55 unit/L Final ??? Alk Phos 02/17/2022 78 40 - 130 unit/L Final ??? Total Bilirubin 02/17/2022 0.4 0.2 - 1.3 mg/dL Final ? ? Estimated GFR 02/17/2022 69 >=60 mL/min/1.73 m?? Final ??? WBC 02/17/2022 6.9 4.0 - 9.5 x10(3)/mcL Final ??? RBC 02/17/2022 3.58 (A) 4.58 - 5.54 x10(6)/mcL Final ??? Hemoglobin 02/17/2022 11.5 (A) 13.7 - 16.5 g/dL Final ??? Hematocrit 02/17/2022 35.1 (A) 40.5 - 48.5 % Final ??? MCV 02/17/2022 98.0 (A) 82.9 - 93.1 fL Final ??? MCH 02/17/2022 32.1 27.5 - 32.1 pg Final ??? MCHC 02/17/2022 32.8 32.0 - 35.7 g/dL Final ??? Platelets 02/17/2022 220 145 - 357 x10(3)/mcL Final ??? RDWSD 02/17/2022 44.3 36.0 - 45.0 fL Final ??? RDWCV 02/17/2022 12.3 11.4 - 13.8 % Final ??? MPV 02/17/2022 10.5 7.6 - 12.9 fL Final ??? nRBC % Auto 02/17/2022 0.0 % Final ??? nRBC Abs Auto 02/17/2022 0.000 0.000 - 0.000 x10(3)/mcL Final ??? Neutrophils % 02/17/2022 65.7 % Final ??? Neutr Abs (ANC) 02/17/2022 4.53 1.70 - 6.10 x10(3)/mcL Final ??? Lymphocytes % 02/17/2022 22.8 % Final ??? Lymphocytes Abs 02/17/2022 1.6 0.9 - 3.2 x10(3)/mcL Final ??? Monocytes % 02/17/2022 7.3 % Final ??? Monocyte Abs 02/17/2022 0.5 0.3 - 0.9 x10(3)/mcL Final ??? Eosinophils % 02/17/2022 2.6 % Final ??? Eosinophils Abs 02/17/2022 0.2 0.0 - 0.4 x10(3)/mcL Final ??? Basophils % 02/17/2022 0.6 % Final ??? Basophils Abs 02/17/2022 0.0 0.0 - 0.1 x10(3)/mcL Final ??? Immature Gran % 02/17/2022 1.00 % Final ??? Sherry Gran Abs 02/17/2022 0.07 (A) 0.00 - 0.04 x10(3)/mcL Final Recent endoscopic procedures 06/28/21 EGD ( [facility]): Pre op Dx; Dysphagia Post op DX: Other( GERD and Hiatal hernia) Final Diagnosis A. PROXIMAL JEJUNUM, BIOPSY: - Small intestinal mucosa with no significant diagnostic abnormalities. ?? B. DUODENUM, BULB, BIOPSY: - Duodenal mucosa with no significant diagnostic abnormalities. ?? C. STOMACH, ANTRUM, BIOPSY: - Antral mucosa with reactive (chemical) gastropathy. - Negative for Helicobacter pylori on H&E stained sections. ?? D. STOMACH, GREATER CURVE, BIOPSY: - Fundic mucosa with mild parietal cell hyperplasia. - Negative for Helicobacter pylori on H&E stained sections. ?? E. GASTROESOPHAGEAL JUNCTION, BIOPSY: - Squamocolumnar mucosa with mild reactive changes and mild focal active inflammation. - Negative for intestinal metaplasia and dysplasia. - Deeper sections x3 examined. ?? F. ESOPHAGUS, DISTAL, BIOPSY: - Squamous mucosa with no significant diagnostic abnormalities. Recent relevant imaging None ?? Assessment/Plan: ??Michael??is a 71 y.o.??patient with ulcerative colitis. ??On Sulfasalazine 3 tabs BID, and Uceris foam once every night. While ulcerative colitis adequately explains his recent diarrhea, the UC is mild and responded verynicely to regular use of Uceris foam on top of his oral sulfasalazine, as it has in the past. I am not sure this is an adequate explanation for elevated inflammatory markers or his abdominal pain. For his abdominal pain, we will repeat inflammatory markers that were last checked in January and order a CT scan of the abdomen pelvis. We will have him check a creatinine today, since the last one was in mid January. He would like to have this done in [facility]. He will keep an eye on the rash around the tick bite on his central abdomen. I marked the borders with a ballpoint pen today. If it exceeds the borders, he will call Mr. Watters for treatment for Lyme disease. His GERD is well controlled on once daily omeprazole. He will continue it. We discussed the following recommendations that were copied to the After Visit Summary and printed for him: - CT scan to be arranged at [facility] in [facility] for left lower quadrant abd pain. - Check labs today including creatinine, complete blood count, and inflammatory markers - Continue Sulfasalazine 3 tabs twice daily - Use Uceris foam twice per week to maintain ulcerative colitis - Continue Prilosec 40 mg once daily - Avoid non-steroidal anti-inflammatory medications (NSAIDs) including but not limited to Advil, ibuprofen, Motrin, Aleve, Excedrin, naproxen, Mobic, indomethacin, and aspirin. Acetaminophen (Tylenol) is okay for aches and pains. - Keep an eye on the tick bite on your abdomen. If redness spreads, call Deacon Watters APRN for treatment for Lyme disease. - Follow-up with Farideh Weinberg APRN in 6 months or sooner as needed?? I spent 25 min today counseling the patient [id number] on the issues outlined above and 10 minutes reviewing the chart, preparing for this visit, documenting, and implementing the plan. Davina Barlow MD Consultative Sales Associatedrapery estimator Co-Director, [facility] Section of Gastroenterology [place] [address] documented in this encounter Plan of Treatment Upcoming Encounters Date Type Department Care Team (Late st Contact Info) Description 08/15/2024 9:00 AM EDT Office [place] [address] Dion Barlow MD [facility] [address] 09/01/2024 11:20 AM EDT Office Visit Dermatology at [address] [address] Gómez Mercer MD [facility] [place] [address] 09/21/2024 2:45 PM EDT Office Visit [facility] [place] [address] Trung Hoyos MD [facility] [place] [address] documented as of this encounter Procedures Procedure Name Priority Date/Time Associated Diagnosis Comments HC C-REACTIVE PROTEIN Routine 04/22/2022 8:51 AM EDT Left sided colitis without complications HEMOGRAM Routine 04/22/2022 8:51 AM EDT Left sided colitis without complications DIFFERENTIAL, AUTOMATED Routine 04/22/2022 8:51 AM EDT Left sided colitis without complications HC ESR-SEDIMENTATION RATE, BLOOD Routine 04/22/2022 8:51 AM EDT Left sided colitis without complications HC CBC,PLT & AUTO DIFF Routine 04/22/2022 8:51 AM EDT Left sided colitis without complications HC VENIPUNCTURE Routine 04/22/2022 8:51 AM EDT Left sided colitis without complications documented in this encounter Results * (ABNORMAL) CT Abdomen & Pelvis w Contrast (09/29/2022 4:21 PM EST) Anatomical Region Laterality Modality Abdomen, Pelvis Computed Tomogra phy Impressions 09/29/2022 4:46 PM EST 1. ??No definite acute intra-abdominal abnormality. Colonic diverticulosis without definite diverticulitis. No pericolonic stranding is present. There is a short segment of mid sigmoid colon which exhibits some mild circumferential wall thickening without surrounding inflammatory changes which could be secondary to early diverticulitis but also could be due to underdistention. Alternatively it could be related to patient's reported history of ulcerative colitis. 2. ??Unexpected finding: Small area of hyperenhancement within the urothelium of the LEFT anterior bladder wall although could represent focal cystitis, an underlying urothelial malignancy should be considered. Consider referral to urology for consideration of cystoscopy for urine cytology. 3. ??Small focus of gas within the bladder lumen is nonspecific and could be related to the catheterization of the patient's recently had. No sign of fistulous connection to bowel is identified. Thank you for letting us participate in the care of this patient. ??If you are a health care provider and have any questions regarding this report, please contact the number below. ??For patients who have questions please contact the health home health care social worker that requested your imaging first. ? Narrative 09/29/2022 4:46 PM EST EXAMINATION: CT ABDOMEN AND PELVIS W CONTRAST CLINICAL HISTORY: LLQ abdominal pain, 71 yo with LLQ pain and tenderness. ??S/p L unguinal hernia repair 5 years ago. ??Also h/o diverticulosis and L-sided UC. UC mild. TECHNIQUE: Helical CT of the abdomen and pelvis was performed following the intravenous administration of contrast. Omnipaque 350 120 mL IV administered. Oral contrast was not administered. COMPARISON: Most using comparison to CT abdomen pelvis on 03/07/2019 FINDINGS: Lower chest: Normal. Liver: Normal size and attenuation without lesions. Bile ducts: Nondilated. Gallbladder: Post cholecystectomy Pancreas: Normal attenuation without ductal dilatation. Spleen: The spleen is normal in size. There are scattered 1 cm or less hyperenhancing foci which are similar in size and distribution compared to prior studies and could represent hamartoma or hemangioma. Adrenals: Normal. Kidneys: Symmetric and normal in size with prompt symmetric enhancement. Mild symmetric perinephric stranding unchanged compared to prior studies. Scattered simple cysts the largest of which is an exophytic cyst in the upper pole the RIGHT kidney measuring 3 cm Urinary Bladder: Partially distended with the focus of gas in the nondependent bladder lumen which could be due to recent instrumentation. Of note, there is a 3 cm area of urothelial hyperenhancement within the LEFT anterior bladder wall (series 3 image 149) which is new compared to the prior study. Vasculature: No aneurysm. Lymph Nodes: No enlarged lymph nodes. Bowel: No dilated small or large bowel is present. Enteric contrast reaches the distal small bowel. There is diffuse diverticulosis of the colon. The segment of mid sigmoid colon exhibits mild diffuse circumferential wall thickening similar in appearance to previous exams. No pericolonic fat stranding or fluid collection. No pneumatosis is present. Peritoneum and mesentery: No ascites, free air, or loculated fluid collection. No mesenteric inflammation. Abdominal wall: Fat-containing RIGHT inguinal hernia. Reproductive organs: Normal. Osseous structures: No suspicious lesions. Resulting Agency Comment Unexpected Finding L Karthik Barlow MD IMG CT ORDERABLES * Differential, Automated (04/22/2022 8:51 AM EDT) Neutrophil % 68.0 % [facility] Neutrophil Absolute 4.59 1.70 - 6.10 x10(3)/[facility] Lymph % 20.1 % [facility] Lymphocytes Abs 1.4 0.9 - 3.2 x10(3)/[facility] Monocyte % 7.1 % [facility] Monocyte Abs 0.5 0.3 - 0.9 x10(3)/[facility] Eos % 3.8 % [facility] Eosinophils Abs 0.3 0.0 - 0.4 x10(3)/[facility] Basophil % 0.7 % [facility] Baso Absolute 0.0 0.0 - 0.1 x10(3)/[facility] Immature Gran % 0.30 % [facility] Comment: Immature granulocytes(IG's)percentage and absolute count will include metamyelocytes, myelocytes, and promyelocytes. Blood smears from CBCs yielding IG's will be scanned manually for concordance. If this scan disagrees with the automated IG or if promyelocytes are noted, a manual differential will be performed. Immature Gran Absolute 0.02 0.00 - 0.04 x10(3)/[facility] Blood 04/22/2022 8:51 AM EDT 04/22/2022 8:57 AM EDT Narrative Resulting Agency Comment Spec In Lab Dion Barlow MD HEMATOLOGY ORDERABLE S [facility] [place] [address] * (ABNORMAL) Hemogram (04/22/2022 8:51 AM EDT) White Blood Cell 6.8 4.0 - 9.5 x10(3)/ L [facility] Red Blood Cell 3.70(L) 4.58 - 5.54 x10(6)/mc L [facility] Hemoglobin 12.4(L) 13.7 - 16.5 g/dL [facility] Hematocrit 37.5(L) 40.5 - 48.5 % [facility] Mean Cell Volume 101.4(H) 82.9 - 93.1 fL [facility] Mean Cell Hemoglobin 33.5(H) 27.5 - 32.1 pg [facility] Mean Cell Hemoglobin Concentration 33.1 32.0 - 35.7 g/dL [facility] Platelet 198 145 - 357 x10(3)/[facility] LABORATORY RDW Standard Deviation 45.2(H) 36.0 - 45.0 [facility] RDW coefficient of variation 12.2 11.4 - 13.8 % [facility] Mean Platelet Volume 11.0 7.6 - 12.9 [facility] NRBC% auto 0.0 % [facility] NRBC Absolute 0.000 0.000 - 0.000 x10(3)/[facility] LABORATORY Blood 04/22/2022 8:51 AM EDT 04/22/2022 8:57 AM EDT Narrative Resulting Agency Comment Spec In Lab L Karthik Barlow MD HEMATOLOGY ORDERABLE S [facility] [place] [address] * (ABNORMAL) Basic Metabolic Panel (non-fasting) (04/22/2022 8:51 AM EDT) Glucose 206(H) 65 - 199 mg/dL [facility] Comment:Diabetes: >=200 mg/d L plus symptoms Blood Urea Nitrogen 21(H) 10 - 20 mg/dL [facility] Creatinine 1.17 0.80 - 1.50 mg/dL [facility] Sodium 141 135 - 145 mmol/L [facility] Potassium 4.6 3.5 - 5.0 mmol/L [facility] Comment: Please note: ??Patients with WBC >100,000 may have falsely elevated Potassium levels. ??For accurate Potassium quantification in these patients send serum separator tube (gold top) for subsequent determinations. ??Contact the Clinical Chemistry Laboratory if there are any questions. Chloride 104 98 - 107 mmol/L [facility] Carbon Dioxide 26 22 - 31 mmol/L [facility] Anion Gap 11 5 - 15 mmol/L [facility] Calcium 10.1 8.5 - 10.5 mg/dL [facility] Est Glomerular Filtration Rate 61 >=60 mL/min/1. 73 m?? [facility] Comment: This patient? s estimated glomerular filtration rate (eGFR) is between 61 mL/min/1.73 m2 (patients with less muscle mass per kg body weight) and 71 mL/min/1.73 m2 (patients with more muscle mass per kg body weight) as determined by the CKD-EPI equation. Assessment of eGFR is not appropriate when creatinine concentrations are rapidly changing. For clinical decisions where creatinine clearance will affect therapy, a 24-hour urine creatinine clearance may be advised. Assignment of CKD stage 1 - 5 for patients with an eGFR near the transition point between stages may be based on clinical assessment of muscle mass and symptoms in addition to eGFR. Blood 04/22/2022 8:51 AM EDT 04/22/2022 8:57 AM EDT Narrative Resulting Agency Comment Spec In Lab L Karthik Barlow MD CHEMISTRY ORDERABLES [facility] [place] [address] * CRP, acute inflammation (04/22/2022 8:51 AM EDT) C-Reactive Protein 3.3 <=4.9 mg/L [facility] Blood 04/22/2022 8:51 AM EDT 04/22/2022 8:57 AM EDT Narrative Resulting Agency Comment Spec In Lab L Karthik Barlow MD CHEMISTRY ORDERABLES Performing Organization Address [facility] Co de Phone Number [facility] [place] [address] * Sedimentation rate (04/22/2022 8:51 AM EDT) Sedimentation Rate Automated 36 3 - 46 mm/hr [facility] Comment: Effective November 02, 2019 new capillary photometric technology has resulted in a change in reference ranges. It is recommended that each ESR result be reviewed with its own age appropriate reference range. Blood 04/22/2022 8:51 AM EDT 04/22/2022 8:57 AM EDT Narrative Resulting Agency Comment Spec In Lab L Karthik Barlow MD HEMATOLOGY ORDERABLE S Performing Organization Address [facility] Co de Phone Number [facility] [place] [address] documented in this encounter Visit Diagnoses Diagnosis Left sided colitis without complications Left sided ulcerative (chronic) colitis Tick bite of abdominal wall, initial encounter Gastroesophageal reflux disease, unspecified whether esophagitis present Left sided colitis without complications Left sided ulcerative (chronic) colitis documented in this encounter Care Teams Sprinkler Installer Relationship Specialty Start Date End Date Deacon Watters, UNIONMELT OPERATOR [address] [place] [address] PCP - General Family Medicine 02/17/22 documented as of this encounter
--- OUTSIDE RECORDS SUMMARY | 2024-06-29 16:03 | XMS_ITS | Encounter Summary ---
Author Organization [facility] [place] [address] Care Team Providers Care Wallpaper Printer Helper Name Role Phone Deacon Watters APRN Primary Care Provider +1- [phone] Encounter Details Date Type Department Care Team (Late st Contact Info) Description 10/06/2022 Telephone [place] [address] Marcelle Weinberg EXPORT COORDINATOR [facility] [place] [address] Social History Tobacco Use Types Packs/Day Years [...] Telephone Encounter - Marcelle Weinberg APRN - 10/06/2022 5:22 PM EST I called and spoke with Brian and reviewed his recent CT abd/pelvis. 09/29/22 CT Abd/pelvis: IMPRESSION:?? 1. No definite acute intra-abdominal abnormality. Colonic diverticulosis without definite diverticulitis. No pericolonic stranding is present. There is a short segment of mid sigmoid colon which exhibits some mild circumferential wall thickening without surrounding inflammatory changes which could be secondary to early diverticulitis but also could be due to underdistention. Alternatively it could be related to patient's reported history of ulcerative colitis. 2. Unexpected finding: Small area of hyperenhancement within the urothelium of the LEFT anterior bladder wall although could represent focal cystitis, an underlying urothelial malignancy should be considered. Consider referral to urology for consideration of cystoscopy for urine cytology. 3. Small focus of gas within the bladder lumen is nonspecific and could be related to the catheterization of the patient's recently had. No sign of fistulous connection to bowel is identified. He still gets intermittent episodes of left sided abdominal pain interior to the umbilicus and towards LLQ that radiates to LUQ. ??It is better after BM. We would try Cipro 500 mg BID x 10 days and Flagyl 500 mg BID x 10 days for now. As far as the Small area of hyperenhancement within the urothelium of the LEFT anterior bladder wall seen in his CT, will have him see his Urologist for this. I will send a copy of this CT to Paula Alonso ( [facility]) and he would also give her office a call. documented in this encounter Plan of Treatment Upcoming Encounters Date Type Department Care Team (Late st Contact Info) Description 08/15/2024 9:00 AM EDT Office [place] [address] Dion Barlow MD [facility] DR [place] [address] 09/01/2024 11:20 AM EDT Office Visit Dermatology at [place] [address] [place] [address] Gómez Mercer MD [facility] DR EDDIE REARDON[place] [address] 09/21/2024 2:45 PM EDT Office Visit [place] [address] Trung Hoyos MD [facility] [place] [address] documented as of this encounter Visit Diagnoses Not on filedocumented in this encounter Care Teams Wallpaper Printer Helper Relationship Specialty Start Date End Date Deacon Watters APRN [address] [place] [address] PCP - General Family Medicine 02/17/22 documented as of this encounter
--- OUTSIDE RECORDS SUMMARY | 2024-06-29 16:03 | XMS_ITS | Encounter Summary ---
Author Organization [facility] Address [facility] [place] [address] Care Team Providers Care Fagoting Machine Operator Name Role Phone Deacon Watters APRN Primary Care Provider +1- [phone] Reason for Referral * Consultation (Routine) - Closed Specialty Diagnoses / Procedures Referred By Contwillard t Referred To Contact Dermatology Diagnoses Basal cell carcinoma (BCC), unspecified site Becca Villegas APRN [address] [place] [address] [place] [address] Kingsley Finn MD [facility] DR EDD[place] [address] Referral ID Status Reason Start Date Expiration Date V isits Requested Visits Authorized [id number] Closed Consult, Test & Treat PCP Updated and/or Approved 01/04/2024 01/03/2025 1 1 Encounter Details Date Type Department Care Team (Late st Contact Info) Description 01/04/2024 Transcribe Orders eDH Incoming Referrals [phone] Becca Villegas APRN [address] [place] [address] [address] [place] [id number] Basal cell carcinoma (BCC), unspecified site (Primary Dx) Social History Tobacco Use Types [...] 9:00 AM EDT Office [place] [address] Dion Barlow MD [facility] [place] [address] 09/01/2024 11:20 AM EDT Office Visit Dermatology at [address] [address] Gómez Mercer MD [facility] [place] [address] 09/21/2024 2:45 PM EDT Office Visit [place] [address] Trung Hoyos MD [facility] [place] [address] Scheduled Referrals Name Type Priority Associated Diagnoses Orde r Schedule Referral to Dermatology Outpatient Referral Routine Basal cell carcinoma (BCC), unspecified site Ordered: 01/04/2024 documented as of this encounter Visit Diagnoses Diagnosis Basal cell carcinoma (BCC), unspecified site- Primary documented in this encounter Care Teams Fagoting Machine Operator Relationship Specialty Start Date End Date Deacon Watters, JAZMINE [address] [place] [address] [address] [place] [address] PCP - General Family Medicine 02/17/22 documented as of this encounter
--- OUTSIDE RECORDS SUMMARY | 2024-06-29 16:03 | XMS_ITS | Encounter Summary ---
Author Organization [facility] [place] [address] Care Team Providers Care Rubberizing Mechanic Name Role Phone Deacon Watters APRN Primary Care Provider +1- [phone] Encounter Details Date Type Department Care Team (Late st Contact Info) Description 02/26/2022 Tele[place] [phone] Dianna Shen RN Social History Tobacco Use [...] Telephone Encounter - Dianna Shen RN - 03/06/2022 11:48 AM EDT left for Brian reminding him to get labs. Called [facility] and they had not been done yet. * Telephone Encounter - Dianna Shen RN - 02/26/2022 4:06 PM EDT TC placed to follow up with Brian. Reports improvement in diarrhea. Says he has a scheduled colonoscopy 5/6th. Discussed elevation in labs of CRP and ESR, as well as mild anemia per Farideh. Patient plans to have labs rechecked at [facility] on Thursday. documented in this encounter Plan of Treatment Upcoming Encounters Date Type Department Care Team (Late st Contact Info) Description 08/15/2024 9:00 AM EDT Office [place] [phone] Dion Barlow MD [facility] [place] [address] 09/01/2024 11:20 AM EDT Office Visit Dermatology at [place] [address] [place] [address] Gómez Mercer MD [facility] [address] 09/21/2024 2:45 PM EDT Office Visit [place] [phone] Trung Hoyos MD [facility] [place] [address] documented as of this encounter Visit Diagnoses Not on filedocumented in this encounter Care Teams Rubberizing Mechanic Relationship Specialty Start Date End Date Deacon Watters, JAZMINE [address] [place] [address] [address] [place] [address] PCP - General Family Medicine 02/17/22 documented as of this encounter
--- OUTSIDE RECORDS SUMMARY | 2024-06-29 16:03 | XMS_ITS | Encounter Summary ---
Author Organization [facility] [place] [address] Care Team Providers Care Bridge Expert Name Role Phone Deacon Watters APRN Primary Care Provider +1- [phone] Encounter Details Date Type Department Care Team (Late st Contact Info) Description 11/04/2022 Orders [place] [phone] Dianna Shen, RN Other ulcerative colitis with rectal bleeding; Left sided colitis without complications; Diarrhea, unspecified type Social History Tobacco Use Types Packs/Day Years [...] 9:00 AM EDT Office [place] [phone] Dion Barlow MD [facility] [place] [address] 09/01/2024 11:20 AM EDT Office Visit Dermatology at [facility] [address] [place] [phone] Gómez Mercer MD [facility] [address] [place] [address] 09/21/2024 2:45 PM EDT Office Visit [place] [address] Trung Hoyos MD [facility] [place] [address] documented as of this encounter Visit Diagnoses Diagnosis Other ulcerative colitis with rectal bleeding Left sided colitis without complications Left sided ulcerative (chronic) colitis Diarrhea, unspecified type documented in this encounter Care Teams Bridge Expert Relationship Specialty Start Date End Date Deacon Watters, JAZMINE [address] [place] [address] PCP - General Family Medicine 02/17/22 documented as of this encounter
--- OUTSIDE RECORDS SUMMARY | 2024-06-29 16:03 | XMS_ITS | Encounter Summary ---
Author Organization [facility] [place] [address] Care Team Providers Care Family Therapist Name Role Phone Deacon Watters APRN Primary Care Provider +1- [phone] Reason for Visit * Reason Onset Date Comments Medication Refill 08/22/2022 Encounter Details Date Type Department Care Team (Late st Contact Info) Description 08/22/2022 Ref[place] [address] Dion Barlow MD [facility] [place] [address] Social History Tobacco Use Types Packs/Day Years [...] 9:00 AM EDT Office [place] [address] Dion Barlow MD [facility] [place] [address] 09/01/2024 11:20 AM EDT Office Visit Dermatology at [facility] [address] [place] [address] Gómez Mercer MD [facility] DR [place] [address] 09/21/2024 2:45 PM EDT Office Visit Pain and Spine Center at [facility] [place] [address] Trung Hoyos MD [facility] [place] [address] documented as of this encounter Visit Diagnoses Not on filedocumented in this encounter Care Teams Family Therapist Relationship Specialty Start Date End Date Deacon Watters APRN [address] [place] [address] PCP - General Family Medicine 02/17/22 documented as of this encounter
--- OUTSIDE RECORDS SUMMARY | 2024-06-29 16:03 | XMS_ITS | Encounter Summary ---
Author Organization [facility] [place] [address] Care Team Providers Care Supervisor Vat House Name Role Phone Deacon Watters APRN Primary Care Provider +1- [phone] Reason for Referral * Diagnostic Test (Routine) - Closed Specialty Diagnoses / Procedures Referred By Contac t Referred To Contact Radiology Diagnoses Left sided colitis without complications Procedures CT Abdomen & Pelvis w Contrast Dion Barlow MD [facility] [place] [address] Referral ID Status Reason Start Date Expiration Date V isits Requested Visits Authorized [id number] Closed Specialty Service Requested 04/22/2022 10/22/2023 1 1 Reason for Visit * Diagnostic Test (Routine) - Closed Specialty Diagnoses / Procedures Referred By Contac t Referred To Contact Radiology Diagnoses Left sided colitis without complications Procedures CT Abdomen & Pelvis w Contrast Dion Barlow MD [facility] [place] [address] Referral ID Status Reason Start Date Expiration Date V isits Requested Visits Authorized [id number] Closed Specialty Service Requested 04/22/2022 10/22/2023 1 1 Encounter Details Date Type Department Care Team (Latest Contact Info) Description 09/29/2022 1:05 PM EST - 09/29/2022 11:59 PM EST Hospital [place] [address] Dion Barlow MD [facility] [place] [address] Left sided colitis without complications Discharge Disposition: [...] Sig Dispensed Refills Start Date End Date atorvastatin (Lipitor) 20 mg Tablet Take 20 [...] capsule Take 40 mg by mouth daily. sulfaSALAzine (Azulfidine) 500 mg Tablet Take 3 tablets by mouth 2 times daily. 540 tablet 3 08/22/2022 09/21/2023 empagliflozin (Jardiance) 10 mg Tablet Take 10 mg by mouth daily. 01/07/2024 budesonide (Uceris) 2 mg/actuation FoamIndications:Left sided colitis without complications Place 2 mg rectally See Admin Instructions. 2mg rectally nightly for 2 weeks, then continue every other night (four nights per week) 133.6 g 5 08/26/2021 12/07/2023 documented as of this encounter Plan of Treatment Upcoming Encounters Date Type Department Care Team (Late st Contact Info) Description 08/15/2024 9:00 AM EDT Office Visit [place] [phone] Dion Barlow MD [facility] [place] [address] 09/01/2024 11:20 AM EDT Office Visit Dermatology at [address] [address] Gómez Mercer MD [facility] DR EDDIE [place] [address] 09/21/2024 2:45 PM EDT Office Visit [facility] [place] [address] Trung Hoyos MD [facility] [place] [address] documented as of this encounter Procedures Procedure Name Priority Date/Time Associated Diagnosis Comments CT ABDOMEN AND PELVIS W CONTRAST Routine 09/29/2022 4:21 PM EST Left sided colitis without complications documented [...] have questions please contact the health home care attendant that requested your imaging first. ? Electronically signed by: Papo Singer MD, [facility] ([phone]), at 09/29/2022 4:46 PM Narrative 09/29/2022 4:46 PM EST EXAMINATION: CT [...] L Karthik Barlow MD IMG CT ORDERABLES documented in this encounter Visit Diagnoses Diagnosis Left sided colitis without complications Left sided ulcerative (chronic) colitis documented in this encounter Administered Medications Inactive Administered Medications - up to 3 most recent administrations Medication Order MAR Action Action Date Dose Rate Site barium sulfate (Readi-Cat) 2.0 % (w/v) oral liquid 450-900 mL 450-900 mL, Oral, ONCE PRN, 1 dose, Starting on Thu09/29/22 at 1620, Until Thu09/29/22 at 1620, Per Protocol, Radiology Contrast, Routine Given 09/29/2022 4:20 PM EST 900 mLs iohexoL (Omnipaque) (350 mg/mL) solution 0-200 mL 0-200 mL, Intravenous, ONCE PRN, 1 dose, Starting on Thu09/29/22 at 1619, Until Thu09/29/22 at 1619, Per Protocol, Warning Vesicant/Irritant Medication , Radiology Contrast, Routine Given 09/29/2022 4:19 PM EST 120 mLs documented in this encounter Care Teams Supervisor Vat House Relationship Specialty Start Date End Date Deacon Watters, TIRE CORD WEAVER [address] [place] [address] PCP - General Family Medicine 02/17/22 documented as of this encounter
--- OUTSIDE RECORDS SUMMARY | 2024-06-29 16:03 | XMS_ITS | Encounter Summary ---
Author Organization [facility] [place] [address] Care Team Providers Care Slubber Operator Name Role Phone Deacon Watters APRN Primary Care Provider +1- [phone] Reason for Visit * Reason Comments Medication Refill Encounter Details Date Type Department Care Team (Late st Contact Info) Description 01/11/2024 Refill [place] [phone] Dion Barlow MD [facility] [place] [address] Social History Tobacco Use Types Packs/Day Years [...] 9:00 AM EDT Office [place] [address] Dion Barlow MD [facility] [place] [address] 09/01/2024 11:20 AM EDT Office Visit Dermatology at [facility] [address] [place] [address] Gómez Mercer MD [facility] DR [place] [address] 09/21/2024 2:45 PM EDT Office Visit Pain and Spine Center at [facility] [place] [address] Trung Hoyos MD [facility] [place] [address] documented as of this encounter Visit Diagnoses Not on filedocumented in this encounter Care Teams Slubber Operator Relationship Specialty Start Date End Date Deacon Watters, JAZMINE [address] [place] [address] PCP - General Family Medicine 02/17/22 documented as of this encounter
--- OUTSIDE RECORDS SUMMARY | 2024-06-29 16:03 | XMS_ITS | Encounter Summary ---
Author Organization [facility] Address [facility] [place] [address] Care Team Providers Care Psychometrist Name Role Phone Deacon Watters APRN Primary Care Provider +1- [phone] Encounter Details Date Type Department Care Team (Latest Contact Info) Description 09/29/2022 Travel Social History Tobacco Use Types Packs/Day [...] 9:00 AM EDT Office Visit [place] [address] Dion Barlow MD [facility] [place] [address] 09/01/2024 11:20 AM EDT Office Visit Dermatology at [facility] [address] [place] [address] Gómez Mercer MD [facility] DR [place] [address] 09/21/2024 2:45 PM EDT Office Visit [facility] [place] [address] Trung Hoyos MD [facility] [place] [address] documented as of this encounter Visit Diagnoses Not on filedocumented in this encounter Care Teams Psychometrist Relationship Specialty Start Date End Date Deacon Watters, SILK SCREEN FRAME ASSEMBLER [address] [place] [address] PCP - General Family Medicine 02/17/22 documented as of this encounter
--- OUTSIDE RECORDS SUMMARY | 2024-06-29 16:03 | XMS_ITS | Encounter Summary ---
Author Organization [facility] [place] [address] Care Team Providers Care Healthcare Facility Administrator Name Role Phone Deacon Watters APRN Primary Care Provider +1- [phone] Reason for Visit * Reason Onset Date Comments Medication Refill 08/22/2022 Encounter Details Date Type Department Care Team (Late st Contact Info) Description 08/22/2022 Refill [place] [address] [facility] [place] [address] Social History Tobacco Use Types Packs/Day Years [...] 9:00 AM EDT Office Visit [place] [address] [facility] [place] [address] 09/01/2024 11:20 AM EDT Office Visit Dermatology at [facility] [address] [place] [address] [facility] DR [place] [address] 09/21/2024 2:45 PM EDT Office Visit Pain and Spine Center at [facility] [place] [address] Trung Hoyos MD [facility] [place] [place] [address] documented as of this encounter Visit Diagnoses Not on filedocumented in this encounter Care Teams Healthcare Facility Administrator Relationship Specialty Start Date End Date Deacon Watters APRN [address] [place] [address] PCP - General Family Medicine 02/17/22 documented as of this encounter
--- OUTSIDE RECORDS SUMMARY | 2024-06-29 16:03 | XMS_ITS | Encounter Summary ---
Author Organization [facility] Address [facility] [place] [address] Care Team Providers Care Calliope Player Name Role Phone Deacon Watters APRN Primary Care Provider +1- [phone] Encounter Details Date Type Department Care Team (Latest Contact Info) Description 01/07/2024 Travel Social History Tobacco Use Types Packs/Day [...] 9:00 AM EDT Office [place] [address] Dion Barlow MD [facility] [place] [address] 09/01/2024 11:20 AM EDT Office Visit Dermatology at [facility] [address] [place] [address] Gómez Mercer MD [facility] [address] [place] [address] 09/21/2024 2:45 PM EDT Office Visit [facility] [place] [address] Trung Hoyos MD [facility] [place] [address] documented as of this encounter Visit Diagnoses Not on filedocumented in this encounter Care Teams Calliope Player Relationship Specialty Start Date End Date Deacon Watters, PATROL INSPECTOR [address] [place] [address] PCP - General Family Medicine 02/17/22 documented as of this encounter
--- OUTSIDE RECORDS SUMMARY | 2024-06-29 16:03 | XMS_ITS | Encounter Summary ---
Author Organization [facility] [place] [address] Care Team Providers Care Table Games Dealer Name Role Phone Deacon Watters APRN Primary Care Provider +1- [phone] Encounter Details Date Type Department Care Team (Late st Contact Info) Description 12/07/2023 Telephone [place] [phone] Estela Phillips Social History Tobacco Use Types Packs/Day Years [...] encounter Miscellaneous Notes * Telephone Encounter - Estela Phillips - 12/07/2023 10:47 AM EST Brian Rodriguez [id number] Diagnosis/Indication: UC surveillance Please review patient chart to confirm if previous Endoscopy procedure was performed within system. If yes, take note of Anesthesia type used. If previous procedure found, and with MAC/propofol Anesthesia support was used, schedule this procedure with Anesthesia and skip the Anesthesia portion of questions. If not performed within system, not performed at all, or performed with IVCS, ask Anesthesia questions. SCHEDULING QUESTIONS (ask all patient these questions) Have you ever had a/an Colonoscopy before? Yes: Date 03/28/22 If yes, did you have any problems with the procedure (such as waking up during the procedure, pain or difficulties afterwards, etc.)? No What type of sedation was used: IV Conscious Sedation Do you take any blood thinners or have you been diagnosed with a bleeding disorder that increases your risk of bleeding with procedures? No Do you have a Pacemaker or Defibrillator device? If yes, send pool message to Cardiology with patient information and date or procedure. No Are you a diabetic? If yes, call PCP/managing provider to discuss use of prep and any questions or concerns related to. Yes: Controlled by diet or medication? Both Do you take any iron supplements or vitamins that contain iron? No Do you have a preference regarding the gender of your provider? No ANESTHESIA QUESTIONS (YES to any question, please book with Anesthesia support) Have you ever been diagnosed with Pulmonary Hypertension and/or Congential Heart Disease? No Have you been diagnosed with A-Fib (atrial fibrillation) that is NOT being well controled with medications? No Have you ever had an allergic or adverse reaction to Fentanyl or Versed? No Have you had a problem with sedation or anesthesia? (Waking up during procedure, extreme confusion after, etc.) No Do you have a diagnosis of Obstructive Sleep Apnea that requires the use of a c- pap machine? No Do you use an oxygen tank at home? No Do you use a rescue inhaler more than twice per day? (COPD, severe asthma) No Do you experience breathing problems when you lay flat for a period of time? No Do you take prescription narcotic pain medications, including suboxone or methodone? No SCHEDULING CONFIRMATIONS: Please note any and all parts of your conversation with the patient here. We offer all new patients an opportunity to have an appointment with one of our associate care providers to learn more about your upcoming procedure, ask questions and get answers. These appointmentsare offered via telehealth. Would you be interested in scheduling this appointment? (Only ask if NEW referral patient; skip this question if DH GI provider ordered the procedure.) No Is there any other information or concerns you would like to us to share with your care team in relation to your upcoming scheduled procedure? No You must have a responsible libertarian who will drive you to your procedure, stay on campus for the entire duration of your procedure, and drive you home from your procedure. Who will likely be your otr van cdl truck driver for the procedure? *Please Verify the height and weight, and adjust if height and/or weight have changed* Estimated body mass index is 30.78 kg/m?? as calculated from the following: Height as of an earlier encounter on 12/07/23: 193 cm (6' 4). Weight as of an earlier encounter on 12/07/23: 114.7 kg (252 lb 14.4 oz). Age:73 y.o. documented in this encounter Plan of Treatment Upcoming Encounters Date Type Department Care Team (Late st Contact Info) Description 08/15/2024 9:00 AM EDT Office [place] [phone] Dion Barlow MD [facility] [place] [address] 09/01/2024 11:20 AM EDT Office Visit Dermatology at [place] [address] [place] [address] Gómez Mercer MD [facility] [place] [address] 09/21/2024 2:45 PM EDT Office Visit [place] [address] Trung Hoyos MD [facility] [place] [address] documented as of this encounter Visit Diagnoses Not on filedocumented in this encounter Care Teams Table Games Dealer Relationship Specialty Start Date End Date Deacon Watters APRN [address] [place] [address] [address] [place] [address] PCP - General Family Medicine 02/17/22 documented as of this encounter
--- OUTSIDE RECORDS SUMMARY | 2024-06-29 16:03 | XMS_ITS | Encounter Summary ---
Author Organization [facility] [place] [address] Care Team Providers Care Application Security Architect Name Role Phone Deacon Watters APRN Primary Care Provider +1- [phone] Encounter Details Date Type Department Care Team (Late st Contact Info) Description 10/15/2022 Telephone [place] [address] Roselia Coronado Social History Tobacco Use Types Packs/Day Years [...] encounter Miscellaneous Notes * Telephone Encounter - Roselia Coronado - 10/15/2022 11:33 AM EST Call made to patient per in basket request from: Farideh Weinberg Patient needs: January follow up scheduled with Dr. Cain WALSH for patient to call GI clinic to schedule documented in this encounter Plan of Treatment Upcoming Encounters Date Type Department Care Team (Late st Contact Info) Description 08/15/2024 9:00 AM EDT Office [place] [address] Dion Barlow MD [facility] [place] [address] 09/01/2024 11:20 AM EDT Office Visit Dermatology at [facility] [address] [place] [address] Gómez Mercer MD [facility] DR EDD[place] [address] 09/21/2024 2:45 PM EDT Office Visit [facility] Sp[facility] Center at [facility] [place] [phone] Trung Hoyos MD [facility] [place] [address] documented as of this encounter Visit Diagnoses Not on filedocumented in this encounter Care Teams Application Security Architect Relationship Specialty Start Date End Date Deacon Watters, 911 TELECOMMUNICATOR [address] [place] [address] PCP - General Family Medicine 02/17/22 documented as of this encounter
--- OUTSIDE RECORDS SUMMARY | 2024-06-29 16:03 | XMS_ITS | Encounter Summary ---
Author Organization [facility] [place] [address] Care Team Providers Care Petroleum Engineer Name Role Phone Deacon Watters APRN Primary Care Provider +1- [phone] Encounter Details Date Type Department Care Team (Late st Contact Info) Description 02/26/2022 Orders [place] [phone] Dianna Shen, RN Other ulcerative colitis with rectal bleeding Social [...] 9:00 AM EDT Office [place] [address] Dion Barlow MD [facility] [place] [address] 09/01/2024 11:20 AM EDT Office Visit Dermatology at [facility] [address] [place] [address] Gómez Mercer MD [facility] DR EDDIE [place] [address] 09/21/2024 2:45 PM EDT Office Visit [place] [address] Trung Hoyos MD [facility] [place] [address] documented as of this encounter Results * CRP, acute inflammation (09/29/2022 12:09 PM EST) C-Reactive Protein <3.0 <=4.9 mg/L [facility] Blood 09/29/2022 12:0 9 PM EST 09/29/2022 12:15 PM EST Narrative Resulting Agency Comment Spec In Lab Marcelle Weinberg APRN CHEMISTRY ORDERAB LES Performing Organization Address City/[facility] Co de Phone Number [facility] [place] [address] * Sedimentation rate (09/29/2022 12:09 PM EST) Sedimentation Rate Automated 38 3 - 46 mm/hr [facility] Comment: Effective November 02, 2019 new capillary photometric technology has resulted in a change in reference ranges. It is recommended that each ESR result be reviewed with its own age appropriate reference range. Blood 09/29/2022 12:0 9 PM EST 09/29/2022 12:15 PM EST Narrative Resulting Agency Comment Spec In Lab Marcelle Weinberg APRN HEMATOLOGY ORDERA BLES Performing Organization Address [facility]/ZIP Co de Phone Number [facility] [place] [address] documented in this encounter Visit Diagnoses Diagnosis Other ulcerative colitis with rectal bleeding documented in this encounter Care Teams Petroleum Engineer Relationship Specialty Start Date End Date Deacon Watters APRN [address] [place] [address] PCP - General Family Medicine 02/17/22 documented as of this encounter
--- OUTSIDE RECORDS SUMMARY | 2024-06-29 16:03 | XMS_ITS | Encounter Summary ---
Author Organization [facility] [place] [address] Care Team Providers Care Bean Picker Name Role Phone Deacon Watters APRN Primary Care Provider +1- [phone] Reason for Visit * Reason Onset Date Comments Medication Refill 09/21/2023 Encounter Details Date Type Department Care Team (Late st Contact Info) Description 09/21/2023 Refill [place] [phone] Dion Barlow MD [facility] [place] [address] Social History Tobacco Use Types Packs/Day Years [...] 9:00 AM EDT Office [place] [address] Dion Barlow MD [facility] [place] [address] 09/01/2024 11:20 AM EDT Office Visit Dermatology at [facility] [address] [place] [address] Gómez Mercer MD [facility] DR [place] [address] 09/21/2024 2:45 PM EDT Office Visit Pain and Spine Center at [facility] [place] [address] Trung Hoyos MD [facility] [place] [address] documented as of this encounter Visit Diagnoses Not on filedocumented in this encounter Care Teams Bean Picker Relationship Specialty Start Date End Date Deacon Watters APRN [address] [place] [address] PCP - General Family Medicine 02/17/22 documented as of this encounter
--- OUTSIDE RECORDS SUMMARY | 2024-06-29 16:03 | XMS_ITS | Encounter Summary ---
Author Organization [facility] Address [facility] [place] [address] Care Team Providers Care Associate Product Manager Name Role Phone Deacon Watters APRN Primary Care Provider +1- [phone] Encounter Details Date Type Department Care Team (Latest Contact Info) Description 03/28/2022 2:03 PM EDT - 03/28/2022 5:24 PM EDT Hospital En[place] [address] Mona Turner MD [facility] [place] [address] Discharge Disposition: Home Social History Tobacco Use [...] Sign Reading Time Taken Comments Blood Pressure 145/79 03/28/2022 5:00 PM EDT Pulse 57 03/28/2022 4:20 PM EDT Temperature 35 ??C (95 ??F) 03/28/2022 2:56 PM EDT Respiratory Rate 16 03/28/2022 5:00 PM EDT Oxygen Saturation 97% 03/28/2022 5:00 PM EDT Inhaled Oxygen Concentration - - Weight 111.1 kg (245 lb) 03/28/2022 2:56 PM EDT Height 193 cm (6' 4) 03/28/2022 2:56 PM EDT Body Mass Index 29.82 03/28/2022 2:56 PM EDT documented in this encounter Discharge Instructions * Discharge Instructions* Annalee Conley, RN - 03/28/2022 4:29 PM EDT Colonoscopy: What to Expect at Home Your [...] occurs, please contact your Doctor. Please call [phone] before 8pm Mon-Fri with problems, questions or concerns. If you call after 8pm or on weekends, call the Hospital at [phone] and ask to speak to the Marine Animal Trainer transition assistant and the windrower operator will contact that person for you. When should you call for help? Call 530 anytime you think you may need emergency [...] any problems. Where can you learn more? [facility] View your After Visit Summary and more online at [email or web address] If you would like to provide feedback about your hospital experience, please call the Office of Patient and Family Relations at . If you have received this After Visit Summary in error, please immediately return it in person to the department, or notify the - Privacy Office by calling toll free at between the hours of 8AM and 5PM to arrange for our retrieval of the documents at no cost to you. Content Version: 12.2 ?? [id number] [employer]. Care instructions adapted under license by [facility]. If you have questions about a medical condition or this instruction, always ask your healthcare professional. [employer] disclaims any warranty or liability for your [...] 03/15/2018 09/29/2022 documented as of this encounter H&P Notes * Mona Turner MD - 03/28/2022 3:49 PM EDT Patient Name: Brian Rodriguez Patient Age: 71 y.o. Birthdate: 1950 Admit date: 03/28/2022 Attending Physician: Mona Turner MD Gastroenterology and Hepatology Pre-Procedure History and Physical Exam Procedure: Colonoscopy: Indication: UC Patient Active Problem List Diagnosis Code ??? Ulcerative colitis K51.90 ??? Diabetes mellitus E11.9 ??? Hearing loss H91.90 ??? GERD (gastroesophageal reflux disease) K21.9 ??? Hydrocele N43.3 ??? Asthma J45.909 ??? Anemia D64.9 EXAM: HEENT: Airway examined, oropharynx [...] 9:00 AM EDT Office [place] [address] Dion Barlow MD [facility] [place] [place] [address] 09/01/2024 11:20 AM EDT Office Visit Dermatology at [place] [address] [place] [address] Gómez Mercer MD [facility] [place] [address] 09/21/2024 2:45 PM EDT Office Visit [facility] [place] [address] Trung Hoyos MD [facility] [place] [address] documented as of this encounter Procedures Procedure Name Priority Date/Time Associated Diagnosis Comments SURGICAL PATHOLOGY REPORT Routine 03/28/2022 4:22 PM EDT SPECIMEN TO PATHOLOGY Routine 03/28/2022 4:22 PM EDT SPECIMEN TO PATHOLOGY Routine 03/28/2022 4:22 PM EDT SPECIMEN TO PATHOLOGY Routine 03/28/2022 4:22 PM EDT Colonoscopy, Biopsy ([id number]) 03/28/2022 3:30 PM EDT Other ulcerative colitis with rectal bleeding COLONOSCOPY Routine 03/28/2022 3:15 PM EDT documented in this encounter Results * Surgical Pathology Report (03/28/2022 4:22 PM EDT) Final Diagnosis [id number] ? Location: 4T; EA12; A The signing pathologist has (i) examined the relevant preparation(s) for the specimen(s) and (ii) rendered or confirmed the diagnosis(es). . ?Surgical Pathology DIAGNOSIS A - Sigmoid bx, biopsy: - ??Mildly active chronic colitis. - ??There is no evidence of dysplasia. B - Rectal bx, biopsy: - ??Inactive chronic colitis. - ??There is no evidence of dysplasia. C - 3mm transverse colon polyp, resection: - ??Tubular adenoma with mucosal prolapse. - The cauterized resection margin is free of adenomatous epithelium. - ??Multiple levels examined. Electronically signed by: ?Nitza HARVEY PhD, Christina Verified: ??04/03/2022 15:08 ??Pathologist Performed at: ??-[facility], [place], [place] SPECIMEN(S) SUBMITTED A - Sigmoid bx, biopsy (1) B - Rectal bx, biopsy (1) C - 3mm transverse colon polyp, resection (1) CLINICAL INFORMATION F/U ??ulcerative colitis SPECIMEN PROCESSING A - Labeled/Fixativ e: Sigmoid biopsy, formalin. Quantity/Size: Four, ranging 0.2-0.5 cm. Tissue Description: Soft, abbasi tissues. Sections/Proces sing: Submitted en toto ??in 1 cassette labeled A1. B - Labeled/Fixativ e: Rectal BX, formalin. Quantity/Size: Three, 0.2-0.4 cm. Tissue Description: Soft, red-abbasi tissues. Sections/Proces sing: Submitted en toto ??in 1 cassette labeled B1. C - Labeled/Fixativ e: 3 mm transverse colon polyp, formalin. Quantity/Size: Two, 0.6 x 0.1 cm, and 1.0 x 0.3 cm. Tissue Description: Abbasi and abbasi-red strips of mucosal tissue. Sections/Proces sing: Submitted en toto ??in 1 cassette labeled C1. ??shb 04/03/2022 3:08 PM EDT [facility] GI Biopsy 03/28/2022 4:22 PM EDT 03/28/2022 4:22 PM EDT GI Biopsy 03/28/2022 4:22 PM EDT 03/28/2022 4:22 PM EDT GI Biopsy 03/28/2022 4:22 PM EDT 03/28/2022 4:22 PM EDT Mona Turner MD PATHOLOGY/CYTOLOGY O CEE [facility] [place] [address] * Specimen to Pathology (03/28/2022 4:22 PM EDT) AP Specimen 03/28/2022 4:22 PM EDT 03/28/2022 4:22 PM EDT Narrative [facility] - 03/28/2022 4:22 PM EDT Specimen requisition ordered. ??Separate Pathology report to follow Mona Turner MD PATHOLOGY/CYTOLOGY O CEE Performing Organization Address City/[facility]/ZIP Co de Phone Number [facility] [place] [address] * Specimen to Pathology (03/28/2022 4:22 PM EDT) AP Specimen 03/28/2022 4:22 PM EDT 03/28/2022 4:22 PM EDT Narrative [facility] - 03/28/2022 4:22 PM EDT Specimen requisition ordered. ??Separate Pathology report to follow Moan Turner MD PATHOLOGY[place] [address] * Specimen to Pathology (03/28/2022 4:22 PM EDT) AP Specimen 03/28/2022 4:22 PM EDT 03/28/2022 4:22 PM EDT Narrative [facility] - 03/28/2022 4:22 PM EDT Specimen requisition ordered. ??Separate Pathology report to follow Mona Turner MD PATHOLOGY/CYTOLOGY O RDERABLES [facility] [place] [address] * COLONOSCOPY (03/28/2022 3:15 PM EDT) COLONOSCOPY [facility] Endoscopy Procedure Date: 03/28/2022 3:15 PM ? Patient Name: Brian Rodriguez ? N: [id number] ? Date of : 1950 ? Age: 71 ? Order #: [id number] ? Instrument Name: [id number] ? Procedure: ? Colonoscopy Indications: ? Follow-up of ulcerative colitis Providers: ? Mona Turner MD, April Augustine ? RONY Archibald, Shay Maynard MD: ?Davina Barlow MD, Deacon Dior ? [place] Medicines: ? Midazolam 4 mg IV, Fentanyl 100 ? micrograms IV Complications: ? No immediate complications. Procedure: ? Pre-Anesthesia Assessment: ? - Prior to the procedure, a History ? and Physical was performed, and ? patient medications and allergies ? were reviewed. The patient's ? tolerance of previous anesthesia ? was also reviewed. The risks and ? benefits of the procedure and the ? sedation options and risks were ? discussed with the patient. All ? questions were answered, and ? informed consent was obtained. ? Prior Anticoagulants: The patient ? has taken no anticoagulant or ? antiplatelet agents. ASA Grade ? Assessment: II - A patient with ? mild systemic disease. After ? reviewing the risks and benefits, ? the patient was deemed in ? satisfactory condition to undergo ? the procedure. ? The procedure, indications, ? [...] ? direct visualization, advanced to ? the cecum, identified by ? appendiceal orifice and ileocecal ? valve. Careful inspection was made ? as the colonoscope was withdrawn. ? The colonoscopy was performed ? without difficulty. The patient ? tolerated the procedure well. The ? quality of the bowel preparation ? was evaluated using the BBPS ? ([place] Bowel Preparation Scale) ? with scores of: Right Colon = 3, ? Transverse Colon = 3 and Left Colon ? = 3 (entire mucosa seen well with ? no residual staining, small ? fragments of stool or opaque ? liquid). The total BBPS score ? equals 9. The ileocecal valve, ? appendiceal orifice, and rectum ? were photographed. Withdrawal time ? was 14 minutes. ? Findings: ? The perianal and digital rectal examinations were ? normal. ? A 3 mm polyp was found in the transverse colon. The ? polyp was flat. The polyp was removed with a cold ? snare. Resection and retrieval were complete. ? Estimated blood loss: none. ? A tattoo was seen in the descending colon. The tattoo ? site appeared normal. ? Inflammation characterized by erythema was found as ? patches surrounded by normal mucosa in the sigmoid ? colon in areas of diverticulum. The sigmoid colon was ? spared. The inflammation was graded as Calvo Score 1 ? (mild, with erythema, decreased vascular pattern, ? mild friability). Biopsies were taken with a cold ? forceps for histology. Estimated blood loss: none. ? The rectum appeared normal. Biopsies were taken with ? a cold forceps for histology. Estimated blood loss: ? none. ? The retroflexed view of the distal rectum and anal ? verge was normal and showed no anal or rectal ? abnormalities. ? Moderate Sedation: ? I was present during the intraservice time as ? documented by the sedation RN. Impression: ?- One 3 mm polyp in the transverse ? colon, removed with a cold snare. ? Resected and retrieved. ? - A tattoo was seen in the ? descending colon. The tattoo site ? appeared normal. ? - Ulcerative colitis. Inflammation ? was found in the sigmoid colon. ? This was graded as Calvo Score 1 ? (mild disease). Biopsied. ? - The rectum is normal. Biopsied. ? - The distal rectum and anal verge ? are normal on retroflexion view. Recommendation: ?- Await pathology results. ? - Repeat colonoscopy for ? surveillance based on pathology ? results. ? - Return to referring physician. ? Procedure Code(s): ? --- Professional --- ? 45927, Colonoscopy, flexible; with ? removal of tumor(s), polyp(s), or ? other lesion(s) by snare technique ? 63016, 59, Colonoscopy, flexible; ? with biopsy, single or multiple CPT copyright 2020 [employer]. All rights reserved. The codes documented in this report are preliminary and upon county judge review may be revised to meet current compliance requirements. Attending Participation: ? I personally performed the entire procedure. ? Mona Turner MD _ Mona Turner MD 03/28/2022 4:33:58 PM This report has been signed electronically. Number of Addenda: 0 Note Initiated On: 03/28/2022 3:15 PM PROVATION 03/28/2022 3:15 PM EDT Deacon Watters HOUSEKEEPING DIRECTOR GENERAL SURGICAL O RDERABLES Performing Organization Address City/State/[facility] Co de Phone Number PROVATION documented in this encounter Visit Diagnoses Not on filedocumented in this encounter Active and Recently Administered Medications Times are shown in EDT. PRN Medication Order 03/26/2022 03/27/2022 03/28/2022 fentaNYL (pf) (50 mcg/mL) multi-dose injection (CANCELED) ONCE PRN, Starting on Thu03/28/22 at 1548, Until Thu03/28/22 at 1924, Intra-Operative (Intra-Procedure), Routine 1548 (Given - Provid er: April Archibald RN)1551 (Given - Provider: April Archibald RN) midazolam (pf) (Versed) (1 mg/mL) multi-dose injection (CANCELED) ONCE PRN, Starting on 03/28/22 at 1548, Until 03/28/22 at 1924, Intra-Operative (Intra-Procedure), Routine 1548 (Given - Provid er: April Archibald RN)1551 (Given - Provider: April Archibald, RN)1554 (Given - Provider: April Archibald, RN)1605 (Given - Provider: April Archibald RN) documented in this encounter Care Teams Associate Product Manager Relationship Specialty Start Date End Date Deacon Watters APRN [address] [place] [address] PCP - General Family Medicine 02/17/22 documented as of this encounter
--- OUTSIDE RECORDS SUMMARY | 2024-06-29 16:03 | XMS_ITS | Encounter Summary ---
Author Organization [facility] [place] [address] Care Team Providers Care Residential Sales Manager Name Role Phone Deacon Watters APRN Primary Care Provider +1- [phone] Encounter Details Date Type Department Care Team (Late st Contact Info) Description 11/10/2022 Telephone [place] [address] Dianna Shen RN Social History Tobacco Use [...] Telephone Encounter - Dianna Shen RN - 11/10/2022 11:11 AM EST [facility] called, cdiff cancelled due to formed stool per policy documented in this encounter Plan of Treatment Upcoming Encounters Date Type Department Care Team (Late st Contact Info) Description 08/15/2024 9:00 AM EDT Office [place] [address] Dion Barlow MD [facility] [place] [address] 08 09/01/2024 11:20 AM EDT Office Visit Dermatology at [facility] [address] [place] [address] Gómez Mercer MD [facility] [address] [place] [address] 09/21/2024 2:45 PM EDT Office Visit Pain and Spine Center at [facility] [place] [address] Trung Hoyos MD [facility] [place] [address] documented as of this encounter Visit Diagnoses Not on filedocumented in this encounter Care Teams Residential Sales Manager Relationship Specialty Start Date End Date Deacon Watters, COMPUTER NETWORK SUPPORT SPECIALIST [address] [place] [address] PCP - General Family Medicine 02/17/22 documented as of this encounter
--- OUTSIDE RECORDS SUMMARY | 2024-06-29 16:03 | XMS_ITS | Encounter Summary ---
Author Organization [facility] Address [facility] [place] [address] Care Team Providers Care Unified Communications Engineer Name Role Phone Deacon Watters APRN Primary Care Provider +1- [phone] Encounter Details Date Type Department Care Team (Late st Contact Info) Description 03/28/2022 3:15 PM EDT - 03/28/2022 4:00 PM EDT Surgery [place] [address] Mona Turner MD [facility] [place] [address] COLONOSCOPY FLEXIBLE, WITH BX (WRVU 3.56) Social [...] Sign Reading Time Taken Comments Blood Pressure 134/85 03/28/2022 4:00 PM EDT Pulse 58 03/28/2022 4:00 PM EDT Temperature 35 ??C (95 ??F) 03/28/2022 2:56 PM EDT Respiratory Rate 9 03/28/2022 4:00 PM EDT Oxygen Saturation 97% 03/28/2022 4:00 PM EDT Inhaled Oxygen Concentration - - Weight 111.1 kg (245 lb) 03/28/2022 2:56 PM EDT Height 193 cm (6' 4) 03/28/2022 2:56 PM EDT Body Mass Index 29.82 03/28/2022 2:56 PM EDT documented in this encounter Discharge Instructions * Discharge Instructions* Annalee Conley RN - 03/28/2022 4:29 PM EDT Colonoscopy: [...] occurs, please contact your Doctor. Please call [phone] before 8pm Mon-Fri with problems, questions or concerns. If you call after 8pm or on weekends, call the Hospital at [phone] and ask to speak to the Cigarette Carton Sealer oncology registrar and the hoisting machine operator will contact that person for you. When should you call for help? Call 301 anytime you think you may need emergency [...] any problems. Where can you learn more? [facility] View your After Visit Summary and more online at [email or web address] If you would like to provide [...] cost to you. Content Version: 12.2 ?? [phone] [employer]. Care instructions adapted under license by [facility]. If you have questions about a medical condition or this instruction, always ask your healthcare professional. [employer] disclaims any warranty or liability for your [...] as needed for Wheezing. Use with spacer BASHUGO SCOTT U-100 INSULIN 100 unit/mL (3 mL) [...] 9:00 AM EDT Office [place] [address] Dion Barlow MD [facility] [place] [address] 09/01/2024 11:20 AM EDT Office Visit Dermatology at [address] [place] [address] Gómez Mercer MD [facility] DR ED[place] [address] 09/21/2024 2:45 PM EDT Office Visit [place] [address] Trung Hoyos MD [facility] [place] [address] documented as of this encounter Procedures Procedure Name Priority Date/Time Associated Diagnosis Comments SURGICAL PATHOLOGY REPORT Routine 03/28/2022 4:22 PM EDT SPECIMEN TO PATHOLOGY Routine 03/28/2022 4:22 PM EDT SPECIMEN TO PATHOLOGY Routine 03/28/2022 4:22 PM EDT SPECIMEN TO PATHOLOGY Routine 03/28/2022 4:22 PM EDT Colonoscopy, Biopsy ([id number]) 03/28/2022 3:30 PM EDT Other ulcerative colitis with rectal bleeding COLONOSCOPY Routine 03/28/2022 3:15 PM EDT documented in this encounter Results * Surgical Pathology Report (03/28/2022 4:22 PM EDT) Final Diagnosis [id number] ? Location: 4T; EA12; A The signing [...] Christina Verified: ??04/03/2022 15:08 ??Pathologist Performed at: ??-[facility] [place], [place], [place] SPECIMEN(S) SUBMITTED A - Sigmoid bx, biopsy (1) B - Rectal bx, biopsy (1) C - 3mm transverse colon polyp, resection (1) CLINICAL INFORMATION F/U ??ulcerative colitis SPECIMEN PROCESSING A - Labeled/Fixativ e: Sigmoid biopsy, formalin. Quantity/Size: Four, ranging 0.2-0.5 cm. Tissue Description: Soft, stephen tissues. Sections/Proces sing: Submitted en toto ??in 1 cassette labeled A1. B - Labeled/Fixativ e: Rectal BX, formalin. Quantity/Size: Three, 0.2-0.4 cm. Tissue Description: Soft, red-stephen tissues. Sections/Proces sing: Submitted en toto ??in 1 cassette labeled B1. C - Labeled/Fixativ e: 3 mm transverse colon polyp, formalin. Quantity/Size: Two, 0.6 x 0.1 cm, and 1.0 x 0.3 cm. Tissue Description: Stephen and stephen-red strips of mucosal tissue. Sections/Proces sing: Submitted en toto ??in 1 cassette labeled C1. ??shb 04/03/2022 3:08 PM EDT [facility] GI Biopsy 03/28/2022 4:22 PM EDT 03/28/2022 4:22 PM EDT GI Biopsy 03/28/2022 4:22 PM EDT 03/28/2022 4:22 PM EDT GI Biopsy 03/28/2022 4:22 PM EDT 03/28/2022 4:22 PM EDT Mona Turner MD PATHOLOGY/CYTOLOGY O CEE [facility] [place] [address] * Specimen to Pathology (03/28/2022 4:22 PM EDT) AP Specimen 03/28/2022 4:22 PM EDT 03/28/2022 4:22 PM EDT Narrative [facility] - 03/28/2022 4:22 PM EDT Specimen requisition ordered. ??Separate Pathology report to follow Mona Turner MD PATHOLOGY/CYTOLOGY O CEE Performing Organization Address City/[facility]/ZIP Co de Phone Number [facility] [place] [address] * Specimen to Pathology (03/28/2022 4:22 PM EDT) AP Specimen 03/28/2022 4:22 PM EDT 03/28/2022 4:22 PM EDT Narrative [facility] - 03/28/2022 4:22 PM EDT Specimen requisition ordered. ??Separate Pathology report to follow Mona Turner MD PATHOLOGY/CYTOLOGY O CEE [facility] [place] [address] * Specimen to Pathology (03/28/2022 4:22 PM EDT) AP Specimen 03/28/2022 4:22 PM EDT 03/28/2022 4:22 PM EDT Narrative [facility] - 03/28/2022 4:22 PM EDT Specimen requisition ordered. ??Separate Pathology report to follow Mona Turner MD PATHOLOGY/CYTOLOGY O RDERABLES [facility] [place] [address] * COLONOSCOPY (03/28/2022 3:15 PM EDT) COLONOSCOPY [facility] Endoscopy Procedure Date: 03/28/2022 3:15 PM ? Patient Name: Brian Rodriguez ? N: [id number] ? Date of : 1950 ? Age: 71 ? Order #: [id number] ? Instrument Name: [id number] ? Procedure: ? Colonoscopy Indications: ? Follow-up of ulcerative colitis Providers: ? Mona Turner MD, April Augustine ? RONY Archibald, Shay Maynard MD: ?Davina Barlow MD, Deacon Dior ? [place] Medicines: ? Midazolam 4 mg IV, Fentanyl [...] ? was evaluated using the BBPS ? ([place] Bowel Preparation Scale) ? with scores of: [...] Procedure Code(s): ? --- Professional --- ? 75515, Colonoscopy, flexible; with ? removal of tumor(s), polyp(s), or ? other lesion(s) by snare technique ? 40073, 59, Colonoscopy, flexible; ? with biopsy, single or multiple CPT copyright 2021 [employer]. All rights reserved. The codes documented in this report are preliminary and upon satellite communications operator review may be revised to meet current compliance requirements. Attending Participation: ? I personally performed the entire procedure. ? Mona Turner MD _ Mona Turner MD 03/28/2022 4:33:58 PM This report has been signed electronically. Number of Addenda: 0 Note Initiated On: 03/28/2022 3:15 PM PROVATION 03/28/2022 3:15 PM EDT Deacon Watters APRN GENERAL SURGICAL O RDERABLES PROVATION documented in this encounter Visit Diagnoses Diagnosis Other ulcerative colitis with rectal bleeding documented in this encounter Administered Medications Inactive Administered Medications - up to 3 most recent administrations Medication Order MAR Action Action Date Dose Rate Site fentaNYL (pf) (50 mcg/mL) multi-dose injection ONCE PRN, Starting on Thu03/28/22 at 1548, Until Thu03/28/22 at 1924, Intra-Operative (Intra-Procedure), Routine Given 03/28/2022 3:51 PM EDT 50 mcg Given 03/28/2022 3:48 PM EDT 50 mcg midazolam (pf) (Versed) (1 mg/mL) multi-dose injection ONCE PRN, Starting on Thu03/28/22 at 1548, Until Thu03/28/22 at 1924, Intra-Operative (Intra-Procedure), Routine Given 03/28/2022 4:05 PM EDT 1 mg Given 03/28/2022 3:54 PM EDT 1 mg Given 03/28/2022 3:51 PM EDT 1 mg documented in this encounter Active and [...] Archibald RN)1551 (Given - Provider: April Archibald RN)1554 (Given - Provider: April Archibald RN)1605 (Given - Provider: April Archibald RN) documented in this encounter Care Teams Unified Communications Engineer Relationship Specialty Start Date End Date Deacon Watters, JAZMINE [address] [place] [address] PCP - General Family Medicine 02/17/22 documented as of this encounter
--- OUTSIDE RECORDS SUMMARY | 2024-06-29 16:03 | XMS_ITS | Encounter Summary ---
[place] [address] Care Team Providers Care Director Sales Support Name Role Phone Deacon Watters APRN Primary Care Provider [phone]- [phone] Reason for Referral * Consultation (Routine) - Closed Specialty Diagnoses / Procedures Referred By Contac t Referred To Contact [facility] Diagnoses Cervicalgia Other chronic pain chronic neck pain/MRI 10/27/23 @ [facility] Deacon Watters APRN [address] [place] [address] [facility] [place] [address] Referral ID Status Reason Start Date Expiration Date V isits Requested Visits Authorized [id number] Closed Consult, Test & Treat PCP Updated and/or Approved 11/11/2023 05/10/2024 1 1 Encounter Details Date Type Department Care Team (Late st Contact Info) Description 11/18/2023 Transcribe Orders eDH Incoming Referrals [phone] Deacon Watters APRN [address] [place], [place] [address] Cervicalgia; Other chronic pain Social History Tobacco Use Types Packs/Day Years [...] 9:00 AM EDT Office [place] [phone] Dion Barlow MD [facility] [place] [address] 09/01/2024 11:20 AM EDT Office Visit Dermatology at [address] [place] [address] Gómez Mercer MD [facility] [place] [address] 09/21/2024 2:45 PM EDT Office Visit [facility] [place] [phone] Trung Hoyos MD [facility] [place] [address] Scheduled Referrals Name Type Priority Associated Diagnoses Orde r Schedule Referral to Spine Center Outpatient Referral Routine Cervicalgia Other chronic pain Ordered: 11/18/2023 documented as of this encounter Visit Diagnoses Diagnosis Cervicalgia Other chronic pain documented in this encounter Care Teams Director Sales Support Relationship Specialty Start Date End Date Deacon Watters APRN [address] [place] [address] PCP - General Family Medicine 02/17/22 documented as of this encounter
--- OUTSIDE RECORDS SUMMARY | 2024-06-29 16:04 | XMS_ITS | Encounter Summary ---
Author Organization [facility] [place] [address] Care Team Providers Care Chief Nursing Executive Name Role Phone Unknown Primary Care Provider Unavailabl e Encounter Details Date Type Department Care Team (Latest Contact Info) Description 08/26/2021 9:30 AM EDT Office [place] [phone] Dion Barlow MD [facility] [place] [address] Other ulcerative colitis with rectal bleeding; Left sided colitis without complications Social History [...] Sign Reading Time Taken Comments Blood Pressure 137/66 08/26/2021 9:28 AM EDT Pulse 74 08/26/2021 9:28 AM EDT Temperature - - Respiratory Rate - - Oxygen Saturation - - Inhaled Oxygen Concentration - - Weight 114.8 kg (253 lb) 08/26/2021 9:28 AM EDT Height - - Body Mass Index 30.8 04/29/2021 9:25 AM EDT documented in this encounter Patient Instructions * Patient Instructions* Dion Barlow MD - 08/26/2021 9:30 AM EDT - Continue Sulfasalazine 3 tabs bid - Increase Uceris to nightly and then go to every other night indefinitely - Recommend repeat colonoscopy in 1 year (due 02/2022) - Chew food carefully. For persistent symptoms, consider manometry. - Obtain upper endoscopy report from [facility] in June 2021 - Avoid non-steroidal anti-inflammatory medications (NSAIDs) including but not limited to Advil, ibuprofen, Motrin, Aleve, Excedrin, naproxen, Mobic, indomethacin, and aspirin. Acetaminophen (Tylenol) is okay for aches and pains. - Follow-up in 6 months - will schedule colonoscopy at that time. documented in this encounter Progress Notes * Dion Barlow MD - 08/26/2021 9:30 AM EDT GASTROENTEROLOGY FOLLOW-UP Primary care provider: Josue Wilkinson MD Reason for visit: Ulcerative colitis f/u Problem List Patient Active Problem List Diagnosis ??? Ulcerative colitis Overview Note: ?? Colonoscopy 04/08/10 (Dr. Gomes [facility]) - inflammation only within the rectum and sigmoid; extent of the exam was to the hepatic flexure; biopsies proximal to the sigmoid nl ?? Repeat exam 11/27/11 ([facility] mildly active colitis in the sigmoid colon and a small cecal patch. Suspected lack of distal involvement due to topical therapies; sigmoid diverticulosis; nl ileum. Biopsies with active colitis on the L but not R colon. 4 mm TA in the transverse ?? Flex sig (03/16/12) for screening for MERIT. Mild (enrique 1) colitis to 25 cm - rectum spared ?? EGD (2018): normal [done for gastric thickening on CT] ?? 02/26/21 Colonoscopy: Ulcerative colitis partially treated with only mild activity in the distal rectum.Moderate diverticulosis from sigmoid to ascending colon. Several HPs and one TA. ?? TREATMENT: cortenemas, Asacol, Rowasa, prednisone, and imodium ??? Anemia Overview Note: ?? Mild ?? B12, iron all nl 2020 ??? Diabetes mellitus ??? Hearing loss ??? GERD (gastroesophageal reflux disease) Overview Note: ??? Hydrocele ??? Asthma Interval History: - Last visit with Farideh Weinberg APRN - Had a colonoscopy 02/2021, see below - Last week and the week before really felt poorly with a lot of diarrhea - Increased Uceris foam to three days per week - Also taking Imodium this week - A couple times saw gustavo blood - looked like dried blood. - Had a lot of cramps, now improved. - No recent antibiotics. No travel - On sulfasalazine 3 tabs BID. Not missing doses. - No fever/chills Just sweaty. - He is eating well. No nausea/vomiting. - No NSAIDs. - Has intermittent dysphagia to solids. Had an EGD at [facility] in Jun and recalls was normal. No interventions. Biopsies seen in Care Everywhere. Minimal distal esophagitis - o/w unremarkable. Review of systems as in the HPI, the rest of the review of systems were negative. Past Medical History, Social History and Family History is unchanged. Medications Outpatient Encounter Medications as of 08/26/2021 Medication Sig Dispense Refill ??? sulfaSALAzine (Azulfidine) 500 mg Tablet Take 3 tablets by mouth 2 times daily. 540 tablet 3 ??? gabapentin (Neurontin) 300 mg Capsule Take 300 mg by mouth daily as needed. ??? budesonide 2 mg/actuation Foam Place 2 mg rectally See Admin Instructions. 2mg rectally nightlyfor 2 weeks, then continue every other night (four nights per week) 133.6 g 5 ??? losartan (Cozaar) 50 mg Tablet TK 1 T PO D ??? albuterol 90 mcg/actuation HFA Aerosol Inhaler Inhale 2 puffs into the lungs every 4 hours as needed for Wheezing. Use with spacer ??? BASAGLAR KWIKPEN U-100 INSULIN 100 unit/mL (3 mL) pen Inject 50 Units subcutaneously. 0 ??? hydrocortisone (CORTIFOAM) 10 % (80 mg) Foam [...] facility-administered encounter medications on file as of 08/26/2021. Allergies/Adverse reactions Erythromycin base and Tetracyclines Physical Examination Patient Vitals for the past 24 hrs: Pulse BP 08/26/21 0928 74 137/66 Wt Readings from Last 3 Encounters: 08/26/21 114.8 kg (253 lb) 04/29/21 116.2 kg (256 lb 3.2 oz) 02/26/21 114.8 kg (253 lb) Gen NAD. agus Recent labs Laboratory Appointment on 05/31/2021 Component Date Value Ref Range Status ??? Vitamin B-12 05/31/2021 389 232 - 1,245 pg/mL Final ??? Iron 05/31/2021 86 45 - 160 mcg/dL Final ??? TIBC 05/31/2021 286 250 - 450 mcg/dL Final ??? Iron Saturation 05/31/2021 30 20 - 50 % Final ??? Ferritin 05/31/2021 94 30 - 400 ng/mL Final ??? WBC 05/31/2021 7.1 4.0 - 9.5 x10(3)/mcL Final ??? RBC 05/31/2021 3.85* 4.58 - 5.54 x10(6)/mcL Final ??? Hemoglobin 05/31/2021 12.6* 13.7 - 16.5 gm/dL Final ??? Hematocrit 05/31/2021 38.4* 40.5 - 48.5 % Final ??? MCV 05/31/2021 99.7* 82.9 - 93.1 fL Final ??? MCH 05/31/2021 32.7* 27.5 - 32.1 pg Final ??? MCHC 05/31/2021 32.8 32.0 - 35.7 gm/dL Final ??? Platelets 05/31/2021 215 145 - 357 x10(3)/mcL Final ??? RDWSD 05/31/2021 45.1* 36.0 - 45.0 fL Final ??? RDWCV 05/31/2021 12.3 11.4 - 13.8 % Final ??? MPV 05/31/2021 11.2 7.6 - 12.9 fL Final ??? nRBC % Auto 05/31/2021 0.0 % Final ??? nRBC Abs Auto 05/31/2021 0.000 0.000 - 0.000 x10(3)/mcL Final ??? Neutrophils % 05/31/2021 70.8 % Final ??? Neutr Abs (ANC) 05/31/2021 5.02 1.70 - 6.10 x10(3)/mcL Final ??? Lymphocytes % 05/31/2021 18.5 % Final ??? Lymphocytes Abs 05/31/2021 1.3 0.9 - 3.2 x10(3)/mcL Final ??? Monocytes % 05/31/2021 6.9 % Final ??? Monocyte Abs 05/31/2021 0.5 0.3 - 0.9 x10(3)/mcL Final ??? Eosinophils % 05/31/2021 2.8 % Final ??? Eosinophils Abs 05/31/2021 0.2 0.0 - 0.4 x10(3)/mcL Final ??? Basophils % 05/31/2021 0.6 % Final ??? Basophils Abs 05/31/2021 0.0 0.0 - 0.1 x10(3)/mcL Final ??? Immature Gran % 05/31/2021 0.40 % Final ??? Sherry Gran Abs 05/31/2021 0.03 0.00 - 0.04 x10(3)/mcL Final Lab Results Component Value Date IRON 86 05/31/2021 TIBC 286 05/31/2021 FERRITIN 94 05/31/2021 Assessment/Plan: Mr. Rodriguez is a 70 y.o. patient with ulcerative colitis. On Sulfasalazine 3 tabs BID, could not tolerate higher dose (upset stomach), but he does not recall that specifically today. Last colo with mild persistent disease and tubular adenomas. Recommended regular use of Uceris foam enema - should gonightly and then every other night indefinitely. When he tapers, symptoms worsen. Due for colonoscopy spring 2021 because of adenomas in the setting of colitis. Discussed intermittent dysphagia to solids. Per pt, recent EGD normal. Will obtain records. EGD here in 2018 unremarkable. While subtle Schatzki ring is possible, more concerned about potential dysmotility. Discussed manometry. He would like to hold off until gets cataracts addressed this Fall. He will call if symptoms worsen or become more frequent. Plans: - Continue Sulfasalazine 3 tabs bid - Increase Uceris to nightly and then go to every other night indefinitely - Recommend repeat colonoscopy in 1 year (due 02/2022) - Chew food carefully. For persistent symptoms, consider manometry. - Obtain upper endoscopy report from [facility] in June 2021 - Avoid non-steroidal anti-inflammatory medications (NSAIDs) including but not limited to Advil, ibuprofen, Motrin, Aleve, Excedrin, naproxen, Mobic, indomethacin, and aspirin. Acetaminophen (Tylenol) is okay for aches and pains. - Follow-up in 6 months - will schedule colonoscopy at that time. I spent 30 min today reviewing the chart preparing for this visit, counseling the patient [id number] on the issues outlined above, and documenting an implementing the plan. Davina Barlow MD [employer] Co-Director, [facility] Section of Gastroenterology [place] [address] documented in this encounter Plan of Treatment Upcoming Encounters Date Type Department Care Team (Late st Contact Info) Description 08/15/2024 9:00 AM EDT Office [place] [phone] Dion Barlow MD [facility] [place] [address] 09/01/2024 11:20 AM EDT Office Visit Dermatology at [facility] [address] [place] [address] Gómez Mercer MD [facility] [address] [place] [address] 09/21/2024 2:45 PM EDT Office Visit Pain and Spine Center at [address] [place] [address] Trung Hoyos MD [facility] [place] [address] documented as of this encounter Visit Diagnoses Diagnosis Other ulcerative colitis with rectal bleeding Left sided colitis without complications Left sided ulcerative (chronic) colitis documented in this encounter Care Teams Chief Nursing Executive Relationship Specialty Start Date End Date Unknown None PCP - General 08/23/21 02/16/22 documented as of this encounter
--- OUTSIDE RECORDS SUMMARY | 2024-06-29 16:04 | XMS_ITS | Encounter Summary ---
Author Organization [facility] Address [facility] [place] [address] Care Team Providers Care Tooth Cutter Name Role Phone Josue Wilkinson MD Primary Care Provider [phone] Encounter Details Date Type Department Care Team (Late st Contact Info) Description 02/26/2021 4:00 PM EDT - 02/26/2021 5:00 PM EDT Surgery [place] [address] Dion Barlow MD [facility] [place] [address] COLONOSCOPY, POLYPECTOMY, REMOVAL LESION BY SNARE (WRVU 4.57) Social History Tobacco Use Types Packs/Day Years [...] Sign Reading Time Taken Comments Blood Pressure 130/70 02/26/2021 5:00 PM EDT Pulse 63 02/26/2021 5:00 PM EDT Temperature 36.4 ??C (97.5 ??F) 02/26/2021 3:37 PM ED T Respiratory Rate 17 02/26/2021 5:00 PM EDT Oxygen Saturation 97% 02/26/2021 5:00 PM EDT Inhaled Oxygen Concentration - - Weight 114.8 kg (253 lb) 02/26/2021 3:37 PM EDT Height 193 cm (6' 4) 02/26/2021 3:37 PM EDT Body Mass Index 30.8 02/26/2021 3:37 PM EDT documented in this encounter Discharge Instructions * Discharge Instructions* Emilia Love, RN - 02/26/2021 5:30 PM EDT Colonoscopy and polyp removal What to expect after the procedure You may feel a little more gassy or bloated than usual, this is normal. You should expect the return of normal bowel function in the next 2 to 3 days. Because some polyps were removed, you may see a little blood with the next few bowel movements, this should be a small amount ( less than a few tablespoons) and will resolve on it's own. ACTIVITY Because of the sedation that you received Your judgement and reaction time are effected ?? Go home and rest for the remainder for the day. You may resume your normal activities tomorrow ?? Change from one position to the next slowly because you may lose your balance unexpectedly. ?? Be careful on stairs, as you may be unsteady. FOR THE NEXT 24 HRS ?? DO NOT DRIVE OR OPERATE MACHINERY ?? DO NOT DRINK ALCOHOLIC BEVERAGES ?? DO NOT SIGN LEGAL DOCUMENTS ?? If you are a smoker: DO NOT SMOKE WHILE YOU ARE ALONE Diet ?? Start by eating small portions of foods that ordinarily will not upset your stomach, avoid gas producing foods for the next few days. ?? Be gentle with what you choose to start with ?? Drink plenty of fluids ( unless your doctor has told you not to). Medicines Avoid medicines that influence the way your blood clots for the next week. These would include anti-inflammatory medicine, such as ibuprofen( Advil, Motrin) and naproxen ( Aleve). If you need something for discomfort, Tylenol (Acetaminophen) is safe if used as directed. Your Doctor will tell you when to restart your prescribed blood thinners The IV site-- slight tenderness, or redness is normal, you can use warm compresses if you get concerned. If the tenderness +/or redness increases or foul drainage and a red streak occurs, please contact your PCP immediately. When should you call for help? Call 911 anytime you think you may need emergency care. For example If you pass out (loss of consciousness) If you pass maroon or bloody stools If you have severe belly pain Call your healthcare provider or seek immediate medical care if: Your stools are black or tar like Your stools have streaks of blood that is more pronounced with each BM You have belly pain, or your belly is swollen and firm You vomit You have a fever You are very dizzy Watch closely for changes in your health, and be sure to contact your doctor if you have any problems. Your Doctor will let you know when you will need your next colonoscopy. The results of your test and your risk for colorectal cancer will help your doctor decide how often you need to be checked. Thursday-Thursday Same Day Endo [phone]-8p Otherwise contact [phone] and ask to speak to the flume worker correspondence dictator Follow up care is a le part of your treatment and safety. Be sure to make and go to all appointments, and call your doctor if you are having problems. Discharge instructions reviewed with patient who expresses understanding documented in this encounter Medications at Time of Discharge Medication Sig Dispensed Refills Start Date End Date losartan (Cozaar) 50 mg Tablet Take 100 [...] Take 40 mg by mouth daily. budesonide 2 mg/actuation FoamIndications:Left sided colitis without complications Place 2 mg rectally See Admin Instructions. 2mg rectally 1-3 x weekly. 133.6 g 12/11/2020 04/29/2021 sulfaSALAzine (Azulfidine) 500 mg Tablet TAKE 4 TABLETS BY MOUTH TWICE A DAY 720 tablet 3 09/03/2020 05/06/2021 hydrocortisone (CORTIFOAM) 10 % (80 mg) FoamIndications:Pain in right hip,Chronic ulcerative enterocolitis, unspecified complication Place 1 applicator rectally nightly. 90 g 3 03/15/2018 09/29/2022 documented as of this encounter H&P Notes * Dion Barlow MD - 02/26/2021 4:26 PM EDT Gastroenterology and Hepatology Pre-Procedure History and Physical Exam Procedure: Colonoscopy: Indication: UC Patient Active Problem List Diagnosis Code ??? Ulcerative colitis K51.90 ??? Diabetes mellitus E11.9 ??? Hearing loss H91.90 ??? GERD (gastroesophageal reflux disease) K21.9 ??? Hydrocele N43.3 ??? Asthma J45.909 EXAM: HEENT: Airway examined, oropharynx clear Mallampati [...] 9:00 AM EDT Office [place] [address] Dion Barlow MD [facility] [place] [address] 09/01/2024 11:20 AM EDT Office Visit Dermatology at [facility] [address] [place] [address] Gómez Mercer MD [facility] DR EDDIE [place] [address] 09/21/2024 2:45 PM EDT Office Visit [facility] [place] [address] Trung Hoyos MD [facility] [place] [address] documented as of this encounter Procedures Procedure Name Priority Date/Time Associated Diagnosis Comments POCT GLUCOSE Routine 02/26/2021 5:51 PM EDT SPECIMEN TO PATHOLOGY Routine 02/26/2021 5:10 PM EDT SPECIMEN TO PATHOLOGY Routine 02/26/2021 5:10 PM EDT SPECIMEN TO PATHOLOGY Routine 02/26/2021 5:10 PM EDT SURGICAL PATHOLOGY REPORT Routine 02/26/2021 4:53 PM EDT Colonoscopy, Sallie Tang ([id number]) 02/26/2021 4:28 PM EDT a repeat colonoscopy in two years from 02/22/19 COLONOSCOPY Routine 02/26/2021 4:21 PM EDT POCT GLUCOSE Routine 02/26/2021 3:42 PM EDT documented in this encounter Results * POCT Glucose (02/26/2021 5:51 PM EDT) Glucose, POC 160 65 - 199 mg/dL [facility] Comment: Supplemental ranges: <140 mg/dL before meals <180 mg/dL all other times of the day Blood specimen (specimen) 02/26/2021 5:51 PM EDT 02/26/2021 12:00 PM EDT L Karthik Barlow MD POINT OF CARE TEST O CEE [facility] [place] [place] [address] * Specimen to Pathology (02/26/2021 5:10 PM EDT) AP Specimen 02/26/2021 5:10 PM EDT 02/26/2021 5:10 PM EDT Narrative [facility] - 02/26/2021 5:10 PM EDT Specimen requisition ordered. ??Separate Pathology report to follow L Karthik Barlow MD PATHOLOGY/CYTOLOGY O CEE Performing Organization Address City/[facility]/ZIP Co de Phone Number [facility] [place] [address] * Specimen to Pathology (02/26/2021 5:10 PM EDT) AP Specimen 02/26/2021 5:10 PM EDT 02/26/2021 5:10 PM EDT Narrative [facility] - 02/26/2021 5:10 PM EDT Specimen requisition ordered. ??Separate Pathology report to follow L Karthik Barlow MD PATHOLOGY/CYTOLOGY O RDMELISSA Performing Organization Address City/[facility]/ZIP Co de Phone Number [facility] [place] [address] * Specimen to Pathology (02/26/2021 5:10 PM EDT) AP Specimen 02/26/2021 5:10 PM EDT 02/26/2021 5:10 PM EDT Narrative [facility] - 02/26/2021 5:10 PM EDT Specimen requisition ordered. ??Separate Pathology report to follow L Karthik Barlow MD PATHOLOGY/CYTOLOGY O CEE [facility] [place] [place] [address] * Surgical Pathology Report (02/26/2021 4:53 PM EDT) Final Diagnosis [id number] ? Location: 4T; EA08; A The signing pathologist has (i) examined the relevant preparation(s) for the specimen(s) and (ii) rendered or confirmed the diagnosis(es). . ?Surgical Pathology DIAGNOSIS A - Right colon, ??polypectomy: - Fragments of hyperplastic polyp. B - Transverse colon, ?? polypectomy: - ??Tubular adenoma. - ??Hyperplastic polyp. C - Rectum, ??polypectomy: - ??Hyperplastic polyp. CR-PX Electronically signed by: ?Dilip Maria MD Verified: ??03/04/2021 16:33 ??Pathologist Performed at: ??[facility] Dept. of Pathology, [place], [place] SPECIMEN(S) SUBMITTED A - right colon polyps x 3, excision (3) B - transverse colon polyps x 3, excision (3) C - rectum polyps x 2, excision (2) CLINICAL INFORMATION Ulcerative colitis SPECIMEN PROCESSING A - Labeled/Fixative : Right colon polyps x3, formalin. Quantity/Size: Three, 0.6 x 0.3 cm, 0.7 x 0.2 cm, and 1.0 x 0.2 cm. Tissue Description: Partially flattened stephen, translucent strips of mucosa. Sections/Process ing: Inked, sectioned and entirely, separately submitted in 3 cassettes labeled A1-A3. B - Labeled/Fixative : Transverse colon polyps x3, formalin. Quantity/Size: Three, 0.3 x 0.2 cm, 0.6 x 0.3 cm, and 1.0 x 0.2 cm. Tissue Description: Irregular, yellow-stephen strips of translucent mucosa, the largest with a 0.4 x 0.63 x 0.2 cm stephen-red central polyp. Sections/Process ing: The largest specimen is inked, trisected and separately submitted. Entirely submitted in 2 cassettes as follows: ?B1: ??Smaller, polypoid tissues, intact ?B2: ??Larger, inked and trisected mucosal tissue with central polyp C - Labeled/Fixative : Rectum polyps x2, formalin. Quantity/Size: Single, 0.8 x 0.3 x 0.2 cm. Tissue Description: Sessile appearing rubbery, stephen mucosal polyp. Sections/Process ing: Inked, trisected and entirely submitted in 1 cassette labeled C1. ??shb 03/04/2021 4:33 PM EDT [facility] GI Biopsy 02/26/2021 4:53 PM EDT 02/26/2021 4:53 PM EDT GI Biopsy 02/26/2021 4:53 PM EDT 02/26/2021 4:53 PM EDT GI Biopsy 02/26/2021 4:53 PM EDT 02/26/2021 4:53 PM EDT L Karthik Barlow MD PATHOLOGY/CYTOLOGY O RDERABLES [facility] [place] [address] * COLONOSCOPY (02/26/2021 4:21 PM EDT) COLONOSCOPY [facility] Endoscopy ___ Procedure Date: 02/26/2021 4:21 PM ? Patient Name: Brian Rodriguez ? Date of : 1950 ? Age: 70 ? Order #: [id number] ? Instrument Name: [id number] ? ___ Procedure: ? Colonoscopy Indications: ? High risk colon cancer surveillance: ? Ulcerative colitis Patient Profile: ? This is a 70 year old male. This ? patient has left-sided ulcerative ? colitis, is taking sulfasalazine and ? topical steroid foam, and he is ? experiencing mild symptoms. Providers: ? Davina Barlow MD, Marcelo Maloney ? Robi Lawson Referring : ?Josue Jdiris Medicines: ? Midazolam 4 mg IV, Fentanyl 175 ? micrograms IV Complications: ? No immediate complications. ___ Procedure: ? Pre-Anesthesia Assessment: ? - Prior to the procedure, a History ? and Physical was performed, and ? patient medications and allergies ? were reviewed. The patient is ? competent. The risks and benefits of ? the procedure and the sedation ? options and risks were discussed with ? the patient. All questions were ? answered and informed consent was ? obtained. Patient identification and ? proposed procedure were verified by ? the physician in the pre-procedure ? area in the endoscopy suite. Mental ? Status Examination: alert and ? oriented. Airway Examination: normal ? oropharyngeal airway and neck ? mobility. Respiratory Examination: ? clear to auscultation. CV ? Examination: normal. ASA Grade ? Assessment: II - A patient with mild ? systemic disease. After reviewing the ? risks and benefits, the patient was ? deemed in satisfactory condition to ? undergo the procedure. The anesthesia ? plan was to use moderate sedation / ? analgesia (conscious sedation). ? Immediately prior to administration ? of medications, the patient was ? re-assessed for adequacy to receive ? sedatives. The heart rate, ? respiratory rate, oxygen saturations, ? blood pressure, adequacy of pulmonary ? ventilation, and response to care ? were monitored throughout the ? procedure. The physical status of the ? patient was re-assessed after the ? procedure. ? The procedure, indications, benefits, ? risks [...] The Colonoscope was inserted in the ? anus and under direct visualization, ? advanced to the terminal ileum, with ? identification of the appendiceal ? orifice and IC valve. Careful ? inspection was made as the ? colonoscope was withdrawn. The ? colonoscopy was performed without ? difficulty. The patient tolerated the ? procedure well. The quality of the ? bowel preparation was evaluated using ? the BBPS ([place] Bowel Preparation ? Scale) with scores of: Right Colon = ? 2 (minor amount of residual staining, ? small fragments of stool and/or ? opaque liquid, but mucosa seen well), ? Transverse Colon = 3 (entire mucosa ? seen well with no residual staining, ? small fragments of stool or opaque ? liquid) and Left Colon = 3 (entire ? mucosa seen well with no residual ? staining, small fragments of stool or ? opaque liquid). The total BBPS score ? equals 8. The quality of the bowel ? preparation was good. Scope ? withdrawal time was 15 minutes. ? Findings: ? The perianal and digital rectal examinations were ? normal. ? Multiple medium-mouthed diverticula were found from ? sigmoid to ascending colon with vast majority within ? the sigmoid colon. ? From 18-23 cm within the sigmoid, there was ? circumferential mild granularity, patchy erythema, ? and diminished vascularity. The rest of the colonic ? mucosa was without any signs of active colitis. ? Two flat polyps were found in the rectum. The polyps ? were 2 to 3 mm in size with well-circumscribed ? borders. These polyps were removed with a cold snare. ? Resection and retrieval were complete. ? Three sessile polyps were found in the transverse ? colon. The polyps were 3 to 4 mm in size with ? well-circumscribed borders. These polyps were removed ? with a cold snare. Resection and retrieval were ? complete. ? Three sessile polyps were found from the ascending ? colon to the cecum. The polyps were 3 mm in size with ? well-circumscribed borders. These polyps were removed ? with a cold snare. Resection and retrieval were ? complete. ? The terminal ileum appeared normal. ? Moderate Sedation: ? I was present during the intraservice time as ? documented by the sedation RN. Impression: ?- Ulcerative colitis partially ? treated with only mild activity in ? the distal rectum. ? - Moderate diverticulosis from ? sigmoid to ascending colon. ? - Two 2 to 3 mm polyps in the rectum, ? removed with a cold snare. Resected ? and retrieved. ? - Three 3 to 4 mm polyps in the ? transverse colon, removed with a cold ? snare. Resected and retrieved. ? - Three 3 mm polyps from ascending ? colon to cecum, removed with a cold ? snare. Resected and retrieved. ? - The examined portion of the ileum ? was normal. Recommendation: ?- Await pathology results. Pending ? results, consider repeat exam in one ? year. ? - Increase topical rectal foam to ? nightly for 2 weeks, then continue ? every other night (four nights per ? week) indefinitely. ? - Follow-up in IBD Clinic ? Attending Participation: ? I personally performed the entire procedure. ? I was present during the intraservice time as ? documented by the sedation RN. ? _ L. Karthik Barlow MD 02/26/2021 5:56:12 PM Number of Addenda: 0 Note Initiated On: 02/26/2021 4:21 PM PROVATION 02/26/2021 4:21 PM EDT Josue Wilkinson MD GENERAL SURGICAL ORD ERABLES PROVATION * POCT Glucose (02/26/2021 3:42 PM EDT) Glucose, POC 128 65 - 199 mg/dL [facility] Comment: Supplemental ranges: <140 mg/dL before meals <180 mg/dL all other times of the day Blood specimen (specimen) 02/26/2021 3:42 PM EDT 02/26/2021 12:00 PM EDT L Karthik Barlow MD POINT OF CARE TEST O RDERAOMAR [facility] [place] [place] [address] documented in this encounter Visit Diagnoses Not on filedocumented in this encounter Administered Medications Inactive Administered Medications - up to 3 most recent administrations Medication Order MAR Action Action Date Dose Rate Site fentaNYL (pf) (50 mcg/mL) multi-dose injection ONCE PRN, Starting on Thu02/26/21 at 1631, Until Thu02/26/21 at 2022, Intra-Operative (Intra-Procedure), Routine Given 02/26/2021 4:42 PM EDT 25 mcg Given 02/26/2021 4:37 PM EDT 50 mcg Given 02/26/2021 4:34 PM EDT 50 mcg midazolam (pf) (Versed) (1 mg/mL) multi-dose injection ONCE PRN, Starting on Thu02/26/21 at 1631, Until Thu02/26/21 at 2022, Intra-Operative (Intra-Procedure), Routine Given 02/26/2021 4:47 PM EDT 0.5 mg Given 02/26/2021 4:42 PM EDT 0.5 mg Given 02/26/2021 4:37 PM EDT 1 mg ondansetron (pf) (Zofran) (2 mg/mL) injection 4 mg 4 mg, Intravenous, ONCE PRN, 1 dose, Starting on Thu02/26/21 at 1743, Until Thu02/26/21 at 1722, Nausea, Endoscopy (Recovery-Hospital Unit) Given 02/26/2021 5:22 PM EDT 4 mg documented in this encounter Active and Recently Administered Medications Times are shown in EDT. PRN Medication Order 02/24/2021 02/25/2021 02/26/2021 fentaNYL (pf) (50 mcg/mL) multi-dose injection (CANCELED) ONCE PRN, Starting on Thu02/26/21 at 1631, Until Thu02/26/21 at 2022, Intra-Operative (Intra-Procedure), Routine 1631 (Given - Provid er: Marcelo Lawson RN)1634 (Given - Provider: Marcelo Lawson RN)1637 (Given - Provider: Marcelo Lawson RN)1642 (Given - Provider: Marcelo Lawson RN) midazolam (pf) (Versed) (1 mg/mL) multi-dose injection (CANCELED) ONCE PRN, Starting on Thu02/26/21 at 1631, Until Thu02/26/21 at 2022, Intra-Operative (Intra-Procedure), Routine 1631 (Given - Provid er: Marcelo Lawson RN)1634 (Given - Provider: Marcelo Lawson RN)1637 (Given - Provider: Marcelo Lawson RN)1642 (Given - Provider: Marcelo Lawson RN)1647 (Given - Provider: Marcelo Lawson RN) ondansetron (pf) (Zofran) (2 mg/mL) injection 4 mg (COMPLETED) 4 mg, Intravenous, ONCE PRN, 1 dose, Starting on Thu02/26/21 at 1743, Until Thu02/26/21 at 1722, Nausea, Endoscopy (Recovery-Hospital Unit) 1722 (Given - Provid er: Emilia Love RN) documented in this encounter Care Teams Tooth Cutter Relationship Specialty Start Date End Date Josue Wilkinson MD PCP - General General Internal Medicine 02/14/2107/26 documented as of this encounter
--- OUTSIDE RECORDS SUMMARY | 2024-06-29 16:04 | XMS_ITS | Encounter Summary ---
Author Organization [facility] [place] [address] Care Team Providers Care Rent Collector Name Role Phone Maximilian Fall MD Primary Care Provider [phone] Encounter Details Date Type Department Care Team (Latest Contact Info) Description 05/09/2019 10:20 AM EDT Office [place] [address] Dion Barlow MD [facility] [place] [address] Left sided colitis without complications Social History Tobacco Use Types Packs/Day Years Used Date Smoking Tobacco: Former Cigarettes 4 30 1 12/01/1961 - 10/01/1992 Smokeless Tobacco: Never Alcohol Use Standard Drinks/Week Comments No 0 (1 standard drink = 0.6 oz pur e alcohol) twice a year Sex and Gender Information Value Date Recorded Sex Assigned at Male 12/07/2023 7:54 AM EST Gender Identity Not on file Sexual Orientation Not on file documented as of this encounter Last Filed Vital Signs Vital Sign Reading Time Taken Comments Blood Pressure 147/75 05/09/2019 10:32 AM EDT Pulse 56 05/09/2019 10:32 AM EDT Temperature - - Respiratory Rate - - Oxygen Saturation - - Inhaled Oxygen Concentration - - Weight 115.8 kg (255 lb 4.8 oz) 019 10:32 AM EDT Height 193 cm (6' 4) 05/09/2019 10:32 AM EDT Body Mass Index 31.08 05/09/2019 10:32 AM EDT documented in this encounter Patient Instructions * Patient Instructions* Dion Barlow MD - 05/09/2019 10:20 AM EDT # Continue sulfasalazine 4 tabs twice daily # Continue folic acid 1 tab daily # Continue Omeprazole 20 mg once daily #??Continue Uceris foam but okay to go to three times per week. For example, Mon, Wed, Fri evenings. Stay on three times per week until follow-up in 4 months # Colonoscopy again spring 2020 # Avoid non-steroidal anti-inflammatory medications (NSAIDs) including but not limited to Advil, ibuprofen, Motrin, Aleve, Excedrin, naproxen, Mobic, indomethacin, and aspirin. Acetaminophen (Tylenol) is okay for aches and pains. # Follow-up in the office in 4 months or sooner as needed documented in this encounter Progress Notes * Dion Barlow MD - 05/09/2019 10:20 AM EDT Problem List? Diagnosis? Ulcerative colitis ? Overview Note:? Colonoscopy 04/08/10 (Dr. Gomes [facility]) - inflammation only within the rectum and sigmoid; extent of the exam was to the hepatic flexure; biopsies proximal to the sigmoid nl ?? Repeat exam 11/27/11 ([facility]): mildly active colitis in the sigmoid colon and a small cecal patch. Suspected lack of distal involvement due to topical therapies; sigmoid diverticulosis; nl ileum. Biopsies with active colitis on the L but not R colon. 4 mm TA in the transverse ?? Colonoscopy 07/13/14 - hyperplastic polyps and erythema in the sigmoid but biopsies nl without signs of active colitis. ?? Flex sig (03/16/12) for screening for MERIT. Mild (enrique 1) colitis to 25 cm - rectum spared ?? Colonoscopy 01/2017 - Left-sided ulcerative colitis. Mild, in a patchy distribution in the rectosigmoid. C/W partial treatment from topical therapy. ?? TREATMENT: cortenemas, Asacol, Rowasa, prednisone, and imodium ? Diabetes mellitus ? Hearing loss ? GERD (gastroesophageal reflux disease) ? Hydrocele ? Asthma ? INTERVAL HISTORY: Mr. Rodriguez returns for f/u of his ulcerative colitis. He saw Farideh Weinberg APRN. He is on Sulfasalazine 4 tabs BID and folic acid once daily. On the cortifoam enemas, symptoms are much better. Frequency is much better - now 2-3 times per day. Urgency is better but still mild. LLQ pain is also better. Using them every other night. Holding them through the night. No bleeding. No GERD/ heartburn sxs as long as he takes his Omeprazole daily. No dysphagia nor odynophagia. EGD unremarkable. ? Physical Exam Constitutional: He appears well-developed. Vitals reviewed. ? Lab Results Component Value Date WBC 7.4 04/25/2019 RBC 4.22 (L) 04/25/2019 HGB 13.7 04/25/2019 HCT 41.9 04/25/2019 MCV 99.3 (H) 04/25/2019 MCH 32.5 (H) 04/25/2019 MCHC 32.7 04/25/2019 PLATELET 239 04/25/2019 RDWCV 12.6 04/25/2019 Lab Results Component Value Date ALT 14 04/25/2019 AST 12 04/25/2019 ALKPHOS 70 04/25/2019 BILITOT 0.4 04/25/2019 Lab Results Component Value Date CRP 2.5 04/25/2019 ASSESSMENT AND PLAN:?? Left-sided ulcerative colitis. ??Mr. Rodriguez has moderately active disease, but he responds very well to topical therapy, specifically Uceris foam, in addition to his sulfasalazine. We again discussedoptions, as we have in the past. One potential option would be to escalate therapy. Options would include Entyvio, and anti-TNF, or potentially Tofacitinib. With his comorbidities and age, my preference is to avoid immune modulating medications if we can. Moreover, he would prefer to stay on his current regimen, as long as it is working. Therefore, I detailed the plan to stay on a maintenance regimen of Uceris foam. He has read the package insert is concerned about chronic corticosteroid exposure. I reassured him that the exposure related to absorption within the distal colon is relatively low, but not completely negligible. We would try to maintain him on the lowest possible dose that controls symptoms. For now, I recommended continuing sulfasalazine at his current dose and using Uceris foam 3 times per week. He will stay on that dose until follow-up in 4 months with Farideh Weinberg APRN. At that time, I would not taper beyond 2 times per week in the least. He is due for surveillance colonoscopy for his chronic colitis and history of adenomas in 2020. He will continue omeprazole 20 mg each morning for history of GERD. He has had recurrent pyrosis when he is tried to stop in the past. ?? We discussed the following recommendations that were printed out for the patient: # Continue sulfasalazine 4 tabs twice daily # Continue folic acid 1 tab daily # Continue Omeprazole 20 mg once daily #??Continue Uceris foam but okay to go to three times per week. For example, Mon, Wed, Fri evenings. Stay on three times per week until follow-up in 4 months # Colonoscopy again spring 2020 # Avoid non-steroidal anti-inflammatory medications (NSAIDs) including but not limited to Advil, ibuprofen, Motrin, Aleve, Excedrin, naproxen, Mobic, indomethacin, and aspirin. Acetaminophen (Tylenol) is okay for aches and pains. # Follow-up in the office in 4 months or sooner as needed 20 min of this 25 min [id number] visit was spent counseling the patient in the issues outlined above. Davina Barlow MD Bank Messengerbrass cutter Co-Director, [facility] Section of Gastroenterology [place] [address] documented in this encounter Plan of Treatment Upcoming Encounters Date Type Department Care Team (Late st Contact Info) Description 08/15/2024 9:00 AM EDT Office [place] [address] Dion Barlow MD [facility] [place] [address] 09/01/2024 11:20 AM EDT Office Visit Dermatology at [facility] [address] [place] [address] Gómez Mercer MD [facility] DR EDDIE [place] [address] 09/21/2024 2:45 PM EDT Office Visit Pain and Spine Center at [facility] [place] [address] Trung Hoyos MD [facility] [place] [address] documented as of this encounter Visit Diagnoses Diagnosis Left sided colitis without complications Left sided ulcerative (chronic) colitis documented in this encounter Care Teams Rent Collector Relationship Specialty Start Date End Date Maximilian Fall MD [address] [place] [address] PCP - General 10/01/11 02/13/21 documented as of this encounter
--- OUTSIDE RECORDS SUMMARY | 2024-06-29 16:04 | XMS_ITS | Encounter Summary ---
Author Organization [facility] [place] [address] Care Team Providers Care Roughener Name Role Phone Maximilian Fall MD Primary Care Provider [phone] Encounter Details Date Type Department Care Team (Late st Contact Info) Description 03/01/2020 Telephone [place] [phone] Suzanne Guillermo Social History Tobacco Use Types Packs/Day Years [...] encounter Miscellaneous Notes * Telephone Encounter - Suzanne Guillermo - 03/01/2020 1:54 PM EDT Left vm and sent letter to pt to conver 4-28 apt to tele or phone documented in this encounter Plan of Treatment Upcoming Encounters Date Type Department Care Team (Late st Contact Info) Description 08/15/2024 9:00 AM EDT Office [place] [phone] Dion Barlow MD [facility] [place] [address] 09/01/2024 11:20 AM EDT Office Visit Dermatology at [facility] [address] [place] [address] Gómez Mercer MD [facility] [address] [place] [address] 09/21/2024 2:45 PM EDT Office Visit Pain and Spine Center at [facility] [place] [address] Trung Hoyos MD [facility] [place] [address] documented as of this encounter Visit Diagnoses Not on filedocumented in this encounter Care Teams Roughener Relationship Specialty Start Date End Date Maximilian Fall MD [address] [place] [address] PCP - General 10/01/11 02/13/21 documented as of this encounter
--- OUTSIDE RECORDS SUMMARY | 2024-06-29 16:04 | XMS_ITS | Encounter Summary ---
Author Organization [facility] [place] [address] Care Team Providers Care Backend Python Developer Name Role Phone Maximilian Fall MD Primary Care Provider [phone] Reason for Visit * Reason Onset Date Comments Medication Refill 12/11/2020 Encounter Details Date Type Department Care Team (Late st Contact Info) Description 12/11/2020 [place] [address] Dion Barlow MD [facility] [place] [address] Left sided colitis without complications Social History [...] 9:00 AM EDT Office [place] [address] Dion Barlow MD [facility] [place] [address] 09/01/2024 11:20 AM EDT Office Visit Dermatology at [facility] [address] [place] [address] Gómez Mercer MD [facility] [address] [place] [address] 09/21/2024 2:45 PM EDT Office Visit [facility] [place] [address] Trung Hoyos MD [facility] [address] documented as of this encounter Visit Diagnoses Diagnosis Left sided colitis without complications Left sided ulcerative (chronic) colitis documented in this encounter Care Teams Backend Python Developer Relationship Specialty Start Date End Date Maximilian Fall MD [address] [place] [address] PCP - General 10/01/11 02/13/21 documented as of this encounter
--- OUTSIDE RECORDS SUMMARY | 2024-06-29 16:04 | XMS_ITS | Encounter Summary ---
Author Organization [facility] [place] [address] Care Team Providers Care Loading Unit Operator Seating Name Role Phone Josue Wilkinson MD Primary Care Provider [phone] Encounter Details Date Type Department Care Team (Latest Contact Info) Description 05/31/2021 1:35 PM EDT Laboratory Appointment Lab [address] [place] [phone] Left sided colitis without complications Social History [...] 9:00 AM EDT Office [place] [address] Dion Barlow MD [facility] [place] [address] 09/01/2024 11:20 AM EDT Office Visit Dermatology at [facility] [address] [place] [phone] Gómez Mercer MD [facility] [address] [place] [address] 09/21/2024 2:45 PM EDT Office Visit Pain and Spine Center at [facility] [place] [phone] Trung Hoyos MD [facility] [place] [address] documented as of this encounter Procedures Procedure Name Priority Date/Time Associated Diagnosis Comments HEMOGRAM Routine 05/31/2021 1:49 PM EDT Left sided colitis without complications DIFFERENTIAL, AUTOMATED Routine 05/31/2021 1:49 PM EDT Left sided colitis without complications HC IRON BINDING CAPACITY Routine 05/31/2021 1:49 PM EDT Left sided colitis without complications HC CBC,PLT & AUTO DIFF Routine 05/31/2021 1:49 PM EDT Left sided colitis without complications HC FERRITIN, SERUM Routine 05/31/2021 1: 49 PM EDT Left sided colitis without complications HC VITAMIN B12 SERUM Routine 05/31/2021 1:49 PM EDT Left sided colitis without complications documented in this encounter Results * Differential, Automated (05/31/2021 1:49 PM EDT) Neutrophil % 70.8 % [facility] Neutrophil Absolute 5.02 1.70 - 6.10 x10(3)/[facility] Lymph % 18.5 % [facility] Lymphocytes Abs 1.3 0.9 - 3.2 x10(3)/[facility] Monocyte % 6.9 % [facility] Monocyte Abs 0.5 0.3 - 0.9 x10(3)/[facility] Eos % 2.8 % [facility] Eosinophils Abs 0.2 0.0 - 0.4 x10(3)/[facility] Basophil % 0.6 % [facility] Baso Absolute 0.0 0.0 - 0.1 x10(3)/[facility] Immature Gran % 0.40 % [facility] Comment: Immature granulocytes(IG's)percentage and absolute count will include metamyelocytes, myelocytes, and promyelocytes. Blood smears from CBCs yielding IG's will be scanned manually for concordance. If this scan disagrees with the automated IG or if promyelocytes are noted, a manual differential will be performed. Immature Gran Absolute 0.03 0.00 - 0.04 x10(3)/[facility] Blood 05/31/2021 1:49 PM EDT 05/31/2021 1:52 PM EDT Narrative Resulting Agency Comment Spec In Lab Marcelle Weinberg APRN HEMATOLOGY ORDERA BLES [facility] [place] [address] * (ABNORMAL) Hemogram (05/31/2021 1:49 PM EDT) White Blood Cell 7.1 4.0 - 9.5 x10(3)/mc L [facility] Red Blood Cell 3.85(L) 4.58 - 5.54 x10(6)/mc L [facility] Hemoglobin 12.6(L) 13.7 - 16.5 gm/dL [facility] Hematocrit 38.4(L) 40.5 - 48.5 % [facility] Mean Cell Volume 99.7(H) 82.9 - 93.1 fL [facility] Mean Cell Hemoglobin 32.7(H) 27.5 - 32.1 pg [facility] Mean Cell Hemoglobin Concentration 32.8 32.0 - 35.7 gm/dL [facility] Platelet 215 145 - 357 x10(3)/mc L [facility] RDW Standard Deviation 45.1(H) 36.0 - 45.0 [facility] RDW coefficient of variation 12.3 11.4 - 13.8 % [facility] Mean Platelet Volume 11.2 7.6 - 12.9 [facility] NRBC% auto 0.0 % [facility] NRBC Absolute 0.000 0.000 - 0.000 x10(3)/mc L [facility] Blood 05/31/2021 1:49 PM EDT 05/31/2021 1:52 PM EDT Narrative Resulting Agency Comment Spec In Lab Marcelle Weinberg HOME CARE MANAGER HEMATOLOGY ORDERA BLES Performing Organization Address [facility]/ZIP Co de Phone Number [facility] [place] [address] * Ferritin (05/31/2021 1:49 PM EDT) [facility] Ferritin 94 30 - 400 ng/mL [facility] Comment: Pediatric reference ranges not verified at [facility], interpret with caution. Reference ranges for females greater than 50 years of age approach values for men, i.e., 30-400 ng/mL. Blood 05/31/2021 1:49 PM EDT 05/31/2021 1:52 PM EDT Narrative Resulting Agency Comment Spec In Lab Marcelle Weinberg HOME CARE MANAGER CHEMISTRY ORDERAB LES Performing Organization Address [facility]/ZIP Co de Phone Number [facility] [place] [address] * Iron and TIBC (05/31/2021 1:49 PM EDT) [facility] Iron 86 45 - 160 mcg/dL [facility] TIBC 286 250 - 450 mcg/dL [facility] Iron Saturation 30 20 - 50 % [facility] Blood 05/31/2021 1:49 PM EDT 05/31/2021 1:52 PM EDT Narrative Resulting Agency Comment Spec In Lab Marcelle Weinberg HOME CARE MANAGER CHEMISTRY ORDERAB LES Performing Organization Address City/[facility]/ZIP Co de Phone Number [facility] [place] [address] * Vitamin B12 (05/31/2021 1:49 PM EDT) Vitamin B12 389 232 - 1,245 pg/mL [facility] Blood 05/31/2021 1:49 PM EDT 05/31/2021 1:52 PM EDT Narrative Resulting Agency Comment Spec In Lab Marcelle Weinberg HOME CARE MANAGER CHEMISTRY ORDERAB LES Performing Organization Address [facility] Co de Phone Number [facility] [place] [address] documented in this encounter Visit Diagnoses Diagnosis Left sided colitis without complications Left sided ulcerative (chronic) colitis documented in this encounter Care Teams Loading Unit Operator Seating Relationship Specialty Start Date End Date Josue Wilkinson MD PCP - General General Internal Medicine 02/14/2107/26 documented as of this encounter
--- OUTSIDE RECORDS SUMMARY | 2024-06-29 16:04 | XMS_ITS | Encounter Summary ---
Author Organization [facility] Address [facility] [place] [address] Care Team Providers Care Straight Cutter Machine Name Role Phone Maximilian Fall MD Primary Care Provider [phone] Encounter Details Date Type Department Care Team (Late st Contact Info) Description 02/22/2019 3:30 PM EDT - 02/22/2019 4:15 PM EDT Surgery [place] [address] Dion Barlow MD [facility] [place] [address] COLONOSCOPY FLEXIBLE, WITH BX (WRVU 3.56) Social [...] Sign Reading Time Taken Comments Blood Pressure 140/73 02/22/2019 4:15 PM EDT Pulse 75 02/22/2019 4:15 PM EDT Temperature 36.5 ??C (97.7 ??F) 02/22/2019 2:55 PM ED T Respiratory Rate 10 02/22/2019 4:15 PM EDT Oxygen Saturation 93% 02/22/2019 4:15 PM EDT Inhaled Oxygen Concentration - - Weight 113.9 kg (251 lb) 02/22/2019 3:00 PM EDT Height - - Body Mass Index 30.55 11/02/2018 1:23 PM EST documented in this encounter Discharge Instructions * Discharge Instructions* Gabrielle Iglesias RN - 02/22/2019 5:05 PM EDT Please call [phone] before 8pm Mon-Fri with problems, questions or concerns. If you call after 8pm or on weekends, call the Hospital at [phone] and ask to speak to the Garbage Truck Helper injection molding process technician and the brazing machine operator will contact that person for you. * Attachments The following attachments cannot be sent through Care Everywhere. * Colonoscopy: Post-op (Congolese) * Colon Polyps (Congolese) documented in this encounter Medications at Time of Discharge Medication Sig Dispensed Refills Start Date End Date albuterol 90 mcg/actuation HFA Aerosol Inhaler Inhale 2 puffs into the lungs every 4 hours as needed for Wheezing. Use with spacer BASAGLTAYLOR ANDERSONPEN U-100 INSULIN 100 unit/mL (3 mL) pen [...] Take 40 mg by mouth daily. sulfaSALAzine (AZULFIDINE) 500 mg Tablet Take 4 tablets by mouth 2 times daily. 240 tablet 5 02/22/2019 06/27/2019 budesonide 2 mg/actuation Foam Place 2 mg rectally See Admin Instructions. 2mg twice daily x 2 weeks followed by 2mg once daily x 4 weeks. 133.6 g 11/02/2018 04/25/2019 hydrocortisone (CORTIFOAM) 10 % (80 mg) FoamIndications:Pain in right hip,Chronic ulcerative enterocolitis, unspecified complication Place 1 applicator rectally nightly. 90 g 3 03/15/2018 09/29/2022 documented as of this encounter H&P Notes * Dion Barlow MD - 02/22/2019 4:09 PM EDT Gastroenterology and Hepatology Pre-Procedure History and Physical Exam Procedure: Colonoscopy: Indication: UC surveillance and staging Patient Active Problem List Diagnosis Code ??? [...] 9:00 AM EDT Office [place] [address] Dion Barlow MD [facility] [place] [address] 09/01/2024 11:20 AM EDT Office Visit Dermatology at [facility] [address] [place] [address] Gómez Mercer MD [facility] DR [place] [address] 09/21/2024 2:45 PM EDT Office Visit [facility] Sp[facility] at [facility] [place] [address] Trung Hoyos MD [facility] [place] [address] documented as of this encounter Procedures Procedure Name Priority Date/Time Associated Diagnosis Comments SPECIMEN TO PATHOLOGY Routine 02/22/2019 4:56 PM EDT SPECIMEN TO PATHOLOGY Routine 02/22/2019 4:56 PM EDT SPECIMEN TO PATHOLOGY Routine 02/22/2019 4:56 PM EDT SPECIMEN TO PATHOLOGY Routine 02/22/2019 4:56 PM EDT SPECIMEN TO PATHOLOGY Routine 02/22/2019 4:56 PM EDT SPECIMEN TO PATHOLOGY Routine 02/22/2019 4:56 PM EDT SPECIMEN TO PATHOLOGY Routine 02/22/2019 4:56 PM EDT SPECIMEN TO PATHOLOGY Routine 02/22/2019 4:56 PM EDT SURGICAL PATHOLOGY REPORT Routine 02/22/2019 4:23 PM EDT COLONOSCOPY, POLYPECTOMY, REMOVAL LESION BY SNARE (WRVU 4.57) 02/22/2019 4:05 PM EDT 2 years for UC surveillance last 01/2017 Prep- Same COLONOSCOPY FLEXIBLE, WITH BX (WRVU 3.56) 02/22/2019 4:05 PM EDT 2 years for UC surveillance last 01/2017 Prep- Same COLONOSCOPY Routine 02/22/2019 3:57 PM EDT documented in this encounter Results * Specimen to Pathology (02/22/2019 4:56 PM EDT) AP Specimen 02/22/2019 4:56 PM EDT 02/22/2019 4:56 PM EDT Narrative [facility] - 02/22/2019 4:56 PM EDT Specimen requisition ordered. ??Separate Pathology report to follow L Karthik Barlow MD PATHOLOGY/CYTOLOGY O CEE Performing Organization Address [facility] [place] [address] * Specimen to Pathology (02/22/2019 4:56 PM EDT) AP Specimen 02/22/2019 4:56 PM EDT 02/22/2019 4:56 PM EDT Narrative [facility] - 02/22/2019 4:56 PM EDT Specimen requisition ordered. ??Separate Pathology report to follow L Karthik Barlow MD PATHOLOGY/CYTOLOGY O CEE Performing Organization Address [facility] [place] [address] * Specimen to Pathology (02/22/2019 4:56 PM EDT) AP Specimen 02/22/2019 4:56 PM EDT 02/22/2019 4:56 PM EDT Narrative [facility] - 02/22/2019 4:56 PM EDT Specimen requisition ordered. ??Separate Pathology report to follow L Karthik Barlow MD PATHOLOGY/CYTOLOGY O CEE Performing Organization Address [facility] [place] [address] * Specimen to Pathology (02/22/2019 4:56 PM EDT) AP Specimen 02/22/2019 4:56 PM EDT 02/22/2019 4:56 PM EDT Narrative [facility] - 02/22/2019 4:56 PM EDT Specimen requisition ordered. ??Separate Pathology report to follow L Karthik Barlow MD PATHOLOGY/CYTOLOGY O CEE Performing Organization Address [facility] [address] * Specimen to Pathology (02/22/2019 4:56 PM EDT) AP Specimen 02/22/2019 4:56 PM EDT 02/22/2019 4:56 PM EDT Narrative [facility] - 02/22/2019 4:56 PM EDT Specimen requisition ordered. ??Separate Pathology report to follow L Karthik Barlow MD PATHOLOGY/CYTOLOGY O CEE Performing Organization Address [facility] [address] * Specimen to Pathology (02/22/2019 4:56 PM EDT) AP Specimen 02/22/2019 4:56 PM EDT 02/22/2019 4:56 PM EDT Narrative [facility] - 02/22/2019 4:56 PM EDT Specimen requisition ordered. ??Separate Pathology report to follow L Karthik Barlow MD PATHOLOGY/CYTOLOGY O CEE Performing Organization Address [facility] [address] * Specimen to Pathology (02/22/2019 4:56 PM EDT) AP Specimen 02/22/2019 4:56 PM EDT 02/22/2019 4:56 PM EDT Narrative [facility] - 02/22/2019 4:56 PM EDT Specimen requisition ordered. ??Separate Pathology report to follow L Karthik Barlow MD PATHOLOGY/CYTOLOGY O CEE Performing Organization Address [facility] [address] * Specimen to Pathology (02/22/2019 4:56 PM EDT) AP Specimen 02/22/2019 4:56 PM EDT 02/22/2019 4:56 PM EDT Narrative [facility] - 02/22/2019 4:56 PM EDT Specimen requisition ordered. ??Separate Pathology report to follow L Karthik Barlow MD PATHOLOGY/CYTOLOGY O CEE [facility] [place] [address] * Surgical Pathology Report (02/22/2019 4:23 PM EDT) Final Diagnosis [id number] ? Location: 4T; EA06; A The signing pathologist has (i) examined the relevant preparation(s) for the specimen(s) and (ii) rendered or confirmed the diagnosis(es). . ?Surgical Pathology DIAGNOSIS A - Right colon, biopsy: Colonic mucosa with focal hyperplastic epithelial changes, otherwise within normal limits. No dysplasia is seen. B - Transverse colon, biopsy: Colonic mucosa within normal limits. No dysplasia is seen. C - Descending colon, biopsy: Colonic mucosa within normal limits. No dysplasia is seen. D - Ascending colon, polypectomy: Tubular adenoma. Additional levels examined. E - Transverse colon, polypectomy: Tubular adenoma. F - Margin of polyp at 50 cm, biopsy: Colonic mucosa within normal limits. G - Colon, 50cm, polypectomy: Sessile serrated adenoma/polyp. H - Rectosigmoid colon, biopsy: Moderately active chronic colitis/proctiti s. No dysplasia is seen. CR-PX Electronically signed by: ??Garrett HARVEY, Ana Verified: ??02/26/2019 ?Pathologist Performed at: ??-[facility] [place] Dept. of Pathology, [place], [place] CLINICAL INFORMATION Specimen Submitted: A - Right colon biopsies B - Transverse colon biopsies C - Descending colon biopsies D - Ascending colon polyp E - Transverse colon polyp F - Biopsies taken at margin of polyp @ 50 cm G - 50cm polyp (5mm) H - Recto-sigmoid biopsies Clinical History and Diagnosis: UC surveillance SPECIMEN PROCESSING A - Labeled/Fixative : Right colon biopsies, formalin. Quantity/Size: Multiple, ranging from 0.3-0.7 cm. . SPECIMEN PROCESSING Tissue Description: Soft, stephen-pink tissues. Sections/Process ing: Submitted en toto ??in 2 cassettes labeled A1-A2. B - Labeled/Fixative : Transverse colon biopsies, formalin. Quantity/Size: Multiple, ranging from 0.3-0.5 cm. Tissue Description: Soft, stephen-pink tissues. Sections/Process ing: Submitted en toto ??in 2 cassettes labeled B1-B2. C - Labeled/Fixative : Descending colon biopsies, formalin. Quantity/Size: Multiple, ranging from 0.3-0.6 cm. Tissue Description: Soft, stephen-pink tissues. Sections/Process ing: Submitted en toto ??in 2 cassettes labeled C1-C2. D - Labeled/Fixative : Ascending colon polyp, formalin. Quantity/Size: Three, ranging from 0.2-0.4 cm. Tissue Description: Soft, stephen-white tissue. Sections/Process ing: Submitted en toto ??in 1 cassette labeled D1. E - Labeled/Fixative : Transverse colon polyp, formalin. Quantity/Size: Three, ranging from 0.2-0.6 cm. Tissue Description: Soft, stephen-white tissue and stephen-pink polypoid tissue. Sections/Process ing: Submitted en toto ??in 1 cassette labeled E1. F - Labeled/Fixative : Biopsies taken at margin of polyp at 50 cm, formalin. Quantity/Size: Four, ranging from 0.4-0.7 cm. Tissue Description: Soft, stephen-white tissues. Sections/Process ing: Submitted en toto ??in 1 cassette labeled F1. G - Labeled/Fixative : 50 cm polyp (5 mm), formalin. Quantity/Size: Multiple, ranging from 0.3-0.6 cm. Tissue Description: Soft, stephen-white polypoid tissue. Sections/Process ing: Submitted en toto ??in 2 cassettes labeled G1-G2. H - Labeled/Fixative : Rectosigmoid biopsies, formalin. Quantity/Size: Multiple, ranging from 0.2-0.5 cm. Tissue Description: Soft, stephen-pink tissues. Sections/Process ing: Submitted en toto ??in 2 cassettes labeled H1-H2. ??apb 02/26/2019 4:24 PM EDT [facility] GI Biopsy 02/22/2019 4:23 PM EDT 02/22/2019 4:23 PM EDT GI Biopsy 02/22/2019 4:23 PM EDT 02/22/2019 4:23 PM EDT GI Biopsy 02/22/2019 4:23 PM EDT 02/22/2019 4:23 PM EDT GI Biopsy 02/22/2019 4:23 PM EDT 02/22/2019 4:23 PM EDT GI Biopsy 02/22/2019 4:23 PM EDT 02/22/2019 4:23 PM EDT GI Biopsy 02/22/2019 4:23 PM EDT 02/22/2019 4:23 PM EDT GI Biopsy 02/22/2019 4:23 PM EDT 02/22/2019 4:23 PM EDT GI Biopsy 02/22/2019 4:23 PM EDT 02/22/2019 4:23 PM EDT L Karthik Barlow MD PATHOLOGY/CYTOLOGY O RDERABLES [facility] [place] [address] * COLONOSCOPY (02/22/2019 3:57 PM EDT) COLONOSCOPY [facility] [place] [facility] ___ Procedure Date: 02/22/2019 3:57 PM ? Patient Name: Brian Rodriguez ? Date of : 1950 ? Age: 68 ? Order #: [id number] ? Instrument Name: [id number] ? ___ Procedure: ? Colonoscopy Indications: ? High risk colon cancer surveillance: ? Ulcerative colitis Patient Profile: ? This is a 68 year old male. This ? patient has left-sided ulcerative ? colitis, is taking sulfasalazine and ? cortenemas and is experiencing mild ? symptoms. Providers: ? L. Karthik Barlow MD, Alannah Singletary, ? RN, Anita Davis Referring : ?Maximilian Fall MD Medicines: ? Midazolam 3 mg IV, Fentanyl 150 ? micrograms IV Complications: ? No immediate [...] and under direct visualization, ? advanced to 3 cm into the ileum. ? Careful inspection was made as the ? colonoscope was withdrawn. The ? colonoscopy was performed without ? difficulty. The patient tolerated the ? procedure well. The quality of the ? bowel preparation was evaluated using ? the BBPS ([place] Bowel Preparation ? Scale) with scores of: Right Colon = ? 1 (portion of mucosa seen, but other ? areas not well seen due to staining, ? residual stool and/or opaque liquid), ? Transverse Colon = 2 (minor amount of ? residual staining, small fragments of ? stool and/or opaque liquid, but ? mucosa seen well) and Left Colon = 2 ? (minor amount of residual staining, ? small fragments of stool and/or ? opaque liquid, but mucosa seen well). ? The total BBPS score equals 5. The ? quality of the bowel preparation was ? fair. Scope withdrawal time was 25 ? minutes. ? Findings: ? The perianal and digital rectal examinations were ? normal. ? The terminal ileum appeared normal but was obscured ? by retained roughage. Similarly, the base of the ? cecum could not be visualized due to retained fibrous ? vegetable matter that could not be irrigated or ? aspirated. ? Inflammation characterized by erythema and ? granularity was found in a continuous and ? circumferential pattern from the rectum to the ? sigmoid colon 28 cm from the anal verge. This was ? mild in severity. Eight biopsies were obtained with ? cold forceps for surveillance randomly each from the ? right colon, transverse, descending and rectosigmoid ? colon. ? A 2 mm polyp was found in the mid ascending colon. ? The polyp was sessile. The polyp was removed with a ? cold biopsy forceps. Margins were well-defined. ? Resection and retrieval were complete. ? A 3 mm polyp was found in the proximal transverse ? colon. The polyp was sessile. The polyp was removed ? with a cold snare. Margins were well-defined. ? Resection and retrieval were complete. ? A 5 mm polyp was found in the mid descending colon at ? 50 cm proximal to the anus. The polyp was sessile, ? and the margins were not clearly demarcated. The ? polyp was removed with a cold snare. Resection and ? retrieval were complete. Biopsies were taken with a ? cold forceps for histology from the margins of the ? polypectomy site and sent separately. Lastly, an area ? just distal to the polypectomy site along the same ? wall was tattooed with a single injection of 2 mL of ? Spot (carbon black). ? Multiple small and large-mouthed diverticula were ? found in the sigmoid colon. ? Moderate Sedation: ? I was present during the intraservice time as ? documented by the sedation RN. Impression: ?- Preparation of the colon was fair. ? The cecum could not be well ? visualized. ? - The examined portion of the ileum ? was normal. ? - Proctosigmoid ulcerative colitis. ? Inflammation was found from the ? rectum to the sigmoid colon. This was ? mild in severity. ? - One 2 mm polyp in the mid ascending ? colon, removed with a cold biopsy ? forceps. Likely sporadic. Resected ? and retrieved. ? - One 3 mm polyp in the proximal ? transverse colon, removed with a cold ? snare. Likely sporadic. Resected and ? retrieved. ? - One 5 mm polyp in the mid ? descending colon at 50 cm proximal to ? the anus, removed with a cold snare. ? Resected and retrieved. Margins ? biopsied and the site was tattooed. ? - Eight biopsies were obtained each ? from the right colon, transverse, ? descending and rectosigmoid colon. ? - Moderate sigmoid diverticulosis. Recommendation: ?- Await pathology results. ? - Continue sulfasalazine. ? - Resume cortenemas every other night. ? - Follow-up in IBD Clinic. ? Attending Participation: ? I personally performed the entire procedure. ? I was present during the intraservice time as ? documented by the sedation RN. ? _ L. Karthik Barlow MD 02/22/2019 5:11:37 PM Number of Addenda: 0 Note Initiated On: 02/22/2019 3:57 PM PROVATION 02/22/2019 3:57 PM EDT Maximilian Fall MD GENERAL SURGICAL ORD ERABLES PROVATION documented in this encounter Visit Diagnoses Not on filedocumented in this encounter Administered Medications Inactive Administered Medications - up to 3 most recent administrations Medication Order MAR Action Action Date Dose Rate Site fentaNYL 50 mcg/mL multi-dose injection ONCE PRN, Starting on Thu02/22/19 at 1610, Until Thu02/22/19 at 1926, Intra-Operative (Intra-Procedure), Routine Given 02/22/2019 4:27 PM EDT 25 mcg Right Arm Given 02/22/2019 4:20 PM EDT 25 mcg Ri ght Arm Given 02/22/2019 4:13 PM EDT 50 mcg Ri ght Arm midazolam (PF) (VERSED) multi-dose injection ONCE PRN, Starting on Thu02/22/19 at 1610, Until Thu02/22/19 at 1926, Intra-Operative (Intra-Procedure), Routine Given 02/22/2019 4:28 PM EDT 0.5 mg Right Arm Given 02/22/2019 4:20 PM EDT 0.5 mg Ri ght Arm Given 02/22/2019 4:13 PM EDT 1 mg Ri ght Arm documented in this encounter Active and Recently Administered Medications Times are shown in EDT. PRN Medication Order 02/20/2019 02/21/2019 02/22/2019 fentaNYL 50 mcg/mL multi-dose injection (CANCELED) ONCE PRN, Starting on Thu02/22/19 at 1610, Until Thu02/22/19 at 1926, Intra-Operative (Intra-Procedure), Routine 1610 (Given - Provid er: Alannah Singletary RN)1613 (Given - Provider: Alannah Singletary RN)1620 (Given - Provider: Alannah Singletary RN)1627 (Given - Provider: Alannah Singletary RN) midazolam (PF) (VERSED) multi-dose injection (CANCELED) ONCE PRN, Starting on Thu02/22/19 at 1610, Until Thu02/22/19 at 1926, Intra-Operative (Intra-Procedure), Routine 1610 (Given - Provid er: Alannah Singletary RN)1613 (Given - Provider: Alannah Singletary RN)1620 (Given - Provider: Alannah Singletary RN)1628 (Given - Provider: Alannah Singletary RN) documented in this encounter Care Teams Straight Cutter Machine Relationship Specialty Start Date End Date Maximilian Fall MD [address] [place] [address] PCP - General 10/01/11 02/13/21 documented as of this encounter
--- OUTSIDE RECORDS SUMMARY | 2024-06-29 16:04 | XMS_ITS | Encounter Summary ---
Author Organization [facility] Address [facility] [place] [address] Care Team Providers Care [employer] Financials Developer Name Role Phone Maximilian Fall MD Primary Care Provider [phone] Encounter Details Date Type Department Care Team (Latest Contact Info) Description 03/20/2020 10:00 AM EDT TH Visit (TeleHealth) [place] [address] Dion Osullivan MD [facility] [place] [address] Other ulcerative colitis with rectal bleeding Social [...] as of this encounter Progress Notes * Dion Osullivan MD - 03/20/2020 10:00 AM EDT GASTROENTEROLOGY TELEMEDICINE PROGRAM - ESTABLISHED PATIENT VISIT Chief Complaint: Brian Rodriguez is a 69 y[address] of Dr[address] Fall here for follow-up of ulcerative colitis. Patient Active Problem List Diagnosis ??? Ulcerative colitis Overview Note: ?? Colonoscopy 04/08/10 (Dr. Gomes [facility]) - inflammation only within the rectum and sigmoid; extent of the exam was to the hepatic flexure; biopsies proximal to the sigmoid nl ?? Repeat exam 11/27/11 ([facility]): mildly active colitis in [...] [done for gastric thickening on CT] ?? TREATMENT: cortenemas, Asacol, Rowasa, prednisone, and imodium ??? Diabetes mellitus ??? Hearing loss ??? GERD (gastroesophageal reflux disease) Overview Note: ??? Hydrocele ??? Asthma Interval history: Mr. Rodriguez was contacted today for a phone visit to f/u . He was last seen in clinic 08/2019. He is taking sulfasalazine 2g BID and Uceris foam. Had weaned off of foam and then noticed blood again about 4 weeks ago. Resumed nightly foam with resolution of bleeding. However, continues with 4-5 loose stools per day. This has been in conjunction with 60-day Bactrim course apparently recommended by his urology team and [facility]. He reports for a UTI (perhaps chronic prostatitis?) No abd pain, no fever, no n/v, no wt loss. Energy and appetite good. Starting seedlings in his greenhouse. Review of systems: 14-point review of systems reviewed and negative except as above. Medications: Outpatient Medications Prior to Visit Medication Sig Dispense Refill ??? budesonide 2 mg/actuation Foam Place 2 mg rectally See Admin Instructions. 2mg once every nightx 4 weeks; then 2mg every other night until symptoms better then stop. 133.6 g 0 ??? sulfaSALAzine (AZULFIDINE) 500 mg Tablet Take 4 tablets by mouth 2 times daily. 720 tablet 3 ??? albuterol 90 mcg/actuation HFA Aerosol Inhaler Inhale 2 puffs into the lungs every 4 hours as needed for Wheezing. Use with spacer ??? BASAGLAR KWIKPEN U-100 INSULIN 100 unit/mL (3 mL) pen Inject 50 Units subcutaneously. 0 ??? hydrocortisone (CORTIFOAM) 10 % (80 mg) Foam Place 1 applicator rectally nightly. (Patient not taking: Reported on 04/25/2019) 90 g 3 ??? propranolol (INDERAL LA) 80 mg Capsule,Sustained Action 24 hr take 2 capsules by mouth daily for MIGRAINE PROPHYLAXIS 0 ??? lisinopril (PRINIVIL;ZESTRIL) 10 mg Tablet take 1 tablet by mouth once daily 0 ??? metFORMIN (GLUCOPHAGE) 1,000 mg Tablet Take 1,000 mg by mouth daily. 0 ??? tamsulosin (FLOMAX) 0.4 mg Capsule, Sust. Release 24 hr Take 0.4 mg by mouth daily. ??? glipiZIDE (GLUCOTROL) 10 mg 24 hr tablet Take 10 mg by mouth daily. ??? folic acid (FOLVITE) 1 mg tablet Take 1 tablet by mouth daily. 90 tablet 3 ??? omeprazole (PRILOSEC) 20 mg capsule Take 40 mg by mouth daily. No facility-administered medications prior to visit. Allergies: is allergic to erythromycin base and tetracyclines. Past Medical History: has a past medical history of Asthma (10/01/2011), Diabetes mellitus (10/01/2011), GERD (gastroesophageal reflux disease) (10/01/2011), Hearing loss (10/01/2011), Hydrocele (10/01/2011), and Ulcerative colitis (10/01/2011). Past Surgical History: has a past surgical history that includes Colonoscopy, Diagnostic (59875) (11/27/2011); Sigmoidoscopy, Diagnostic (40221) (03/16/2012); Upper Gi Endoscopy, Exam (49842) (10/01/2012); Colonoscopy, Diagnostic (65392) (07/13/2014); Colonoscopy, Biopsy (78216) (N/A, 02/12/2017); Colonoscopy, Biopsy (48195) (N/A, 02/22/2019); Colonoscopy, Remv Lesn, Snare (08797) (N/A, 02/22/2019); and Upper GI Endoscopy, Diagnostic (16306) (N/A, 04/28/2019). Family History: family history is not on file. Social History: reports that he quit smoking about 27 years ago. His smoking use included cigarettes. He has a 120.00 pack-year smoking history. He has never used smokeless tobacco. He reports that he does not drink alcohol or use drugs. No Physical Examination performed during this telemedicine visit Laboratory studies, imaging, and procedures (my review of prior records): CBC, BUN, Cr, LFTs reviewed and nl 2019 Assessment/Plan: Mr. Rodriguez is a 69 y.o. patient with ulcerative colitis. As previously discussed, likely to need topical therapy for maintenance. Perhaps uceris foam 2-3 times per week. He will wean down and continue SSZ. The persistent diarrhea likely antibiotic induced. He will be done with his course this week. For increased stool frequency, fever, abd pain will call. Would check C. Diff and lactoferrin at [facility]. Also, will call if diarrhea does not start to improve within one week. Recommendations: # continue current regimen of Uceris foam enemas and taper to 3 times per week # Continue sullfasalazine 2g BID # Check stool for C. Difficile and calprotectin if the loose stools within one week off of Bactrim - or if it worsens or if develops fever, he will contact us # repeat colonoscopy for continued surveillance in January 2021 # annual complete blood count, liver tests, BUN / Cr (kidney function) while on sulfasalazine - duethis April - could be done with Dr. Fall # Follow-up in 4 months with Farideh Weinberg APRN via televisit or in person Patient verbally consents to this telephone visit and understands that this visit may be billed, similar to a clinic office visit. I provided care to the patient today via telephone call, 15 minutes telephone visit was spent in discussion with patient on above. Dion OSULLIVAN MD [facility] [place] [id number] documented in this encounter Plan of Treatment Upcoming Encounters Date Type Department Care Team (Late st Contact Info) Description 08/15/2024 9:00 AM EDT Office Visit Gastroenterology at [facility] [place] [address] Dion Osullivan MD [facility] [place] [address] 09/01/2024 11:20 AM EDT Office Visit Dermatology at [facility] [address] [place] [address] Gómez Mercer MD [facility] DR EDDIE [place] [address] 09/21/2024 2:45 PM EDT Office Visit Pain and Spine Center at [facility] [place] [address] Trung Hoyos MD [facility] [place] [address] documented as of this encounter Visit Diagnoses Diagnosis Other ulcerative colitis with rectal bleeding documented in this encounter Care Teams [employer] Developer Relationship Specialty Start Date End Date Maximilian Fall MD [address] [place] [address] PCP - General 10/01/11 02/13/21 documented as of this encounter
--- OUTSIDE RECORDS SUMMARY | 2024-06-29 16:04 | XMS_ITS | Encounter Summary ---
Author Organization [facility] [place] [address] Care Team Providers Care Underwriting Account Representative Name Role Phone Maximilian Fall MD Primary Care Provider [phone] Encounter Details Date Type Department Care Team (Late st Contact Info) Description 04/26/2019 Ancillary Procedure [place] [phone] Dion Barlow MD [facility] [place] [address] Social History Tobacco Use Types Packs/Day Years [...] AM EDT Office [place] [phone] Dion Barlow MD [facility] [place] [address] 09/01/2024 11:20 AM EDT Office Visit Dermatology at [address] [place] [address] Gómez Mercer MD [facility] [address] [place] [address] 09/21/2024 2:45 PM EDT Office Visit Pain and Spine Center at [facility] [place] [phone] Trung Hoyos MD [facility] [place] [address] documented as of this encounter Procedures Procedure Name Priority Date/Time Associated Diagnosis Comments FILM LIBRARY STORAGE ONLY CT ABDOMEN AND PELVIS Routine 04/26/2019 12:00 AM EDT documented in this encounter Results * Film Library- Storage Only CT Abdomen & Pelvis (04/26/2019 12:00 AM EDT) Narrative [facility] - 04/27/2019 3:22 AM EDT This exam is auto-finalizing. It's purpose is for storage only. L Karthik Barlow MD IMG FILM LIBRARY ORD ERABLES [place], [place] documented in this encounter Visit Diagnoses Not on filedocumented in this encounter Care Teams Underwriting Account Representative Relationship Specialty Start Date End Date Maximilian Fall MD [address] [place] [address] PCP - General 10/01/11 02/13/21 documented as of this encounter
--- OUTSIDE RECORDS SUMMARY | 2024-06-29 16:04 | XMS_ITS | Encounter Summary ---
Author Organization [facility] [place] [address] Care Team Providers Care Montessori Lead Teacher Name Role Phone Maximilian Fall MD Primary Care Provider [phone] Encounter Details Date Type Department Care Team (Late st Contact Info) Description 02/23/2019 Telephone [place] [address] Suzanne Guillermo Social History Tobacco Use Types [...] * Telephone Encounter - Suzanne Guillermo - 02/23/2019 9:07 AM EDT Message Please set up follow-up with Farideh within 8-10 weeks. Dg Roth , sent letter and set up recall documented in this encounter Plan of Treatment Upcoming Encounters Date Type Department Care Team (Late st Contact Info) Description 08/15/2024 9:00 AM EDT Office [place] [phone] Dion Barlow MD [facility] [place] [address] 09/01/2024 11:20 AM EDT Office Visit Dermatology at [facility] [address] [place] [address] Gómez Mercer MD [facility] [address] [place] [address] 09/21/2024 2:45 PM EDT Office Visit Pain and Spine Center at [facility] [place] [address] Trung Hoyos MD [facility] [address] documented as of this encounter Visit Diagnoses Not on filedocumented in this encounter Care Teams Montessori Lead Teacher Relationship Specialty Start Date End Date Maximilian Fall MD [address] [place] [address] [address] [place] [address] PCP - General 10/01/11 02/13/21 documented as of this encounter
--- OUTSIDE RECORDS SUMMARY | 2024-06-29 16:04 | XMS_ITS | Encounter Summary ---
Author Organization [facility] [place] [address] Care Team Providers Care Mining Technician Name Role Phone Josue Wilkinson MD Primary Care Provider [phone] Encounter Details Date Type Department Care Team (Late st Contact Info) Description 04/16/2021 Telephone [place] [address] Mona Cherry Social History Tobacco Use Types Packs/Day Years [...] 9:00 AM EDT Office [place] [phone] Dion Barlow MD [facility] [place] [address] 09/01/2024 11:20 AM EDT Office Visit Dermatology at [facility] [address] [place] [address] Gómez Mercer MD [facility] [address] [place] [address] 09/21/2024 2:45 PM EDT Office Visit [facility] [place] [address] Trung Hoyos MD [facility] [place] [address] documented as of this encounter Visit Diagnoses Not on filedocumented in this encounter Care Teams Mining Technician Relationship Specialty Start Date End Date Josue Wilkinson MD PCP - General General Internal Medicine 02/14/2107/26 documented as of this encounter
--- OUTSIDE RECORDS SUMMARY | 2024-06-29 16:04 | XMS_ITS | Encounter Summary ---
Author Organization Count Includes [facility] Address [facility] [place] [address] Care Team Providers Care Skip Hoist Engineer Name Role Phone Maximilian Fall MD Primary Care Provider [phone] Encounter Details Date Type Department Care Team (Late st Contact Info) Description 04/28/2019 4:15 PM EDT - 04/28/2019 4:45 PM EDT [place] [address] Iza Coates MD [facility] [place] [address] EGD, UPPER GI ENDOSCOPY (WRVU 2.09) Social History Tobacco Use Types Packs/Day Years [...] Sign Reading Time Taken Comments Blood Pressure 199/95 04/28/2019 4:45 PM EDT Pulse 94 04/28/2019 4:45 PM EDT Temperature 36.8 ??C (98.2 ??F) 04/28/2019 3:35 PM ED T Respiratory Rate 22 04/28/2019 4:45 PM EDT Oxygen Saturation 95% 04/28/2019 4:45 PM EDT Inhaled Oxygen Concentration - - Weight 113.4 kg (250 lb) 04/28/2019 3:35 PM EDT Height 193 cm (6' 4) 04/28/2019 3:35 PM EDT Body Mass Index 30.43 04/28/2019 3:35 PM EDT documented in this encounter Discharge Instructions * Attachments The following attachments cannot be sent through Care Everywhere. * EGD (Upper Endoscopy): Post-op (Arabic) documented in this encounter Medications at Time [...] mg by mouth daily. budesonide 2 mg/actuation Foam Place 2 mg rectally See Admin Instructions. 2mg once every night x 4 weeks; then 2mg every other night until symptoms better then stop. 133.6 g 04/25/2019 09/12/2019 sulfaSALAzine (AZULFIDINE) 500 mg Tablet Take 4 tablets by mouth 2 times daily. 240 tablet 5 02/22/2019 06/27/2019 hydrocortisone (CORTIFOAM) 10 % (80 mg) FoamIndications:Pain in right hip,Chronic ulcerative enterocolitis, unspecified complication Place 1 applicator rectally nightly. 90 g 3 03/15/2018 09/29/2022 documented as of this encounter H&P Notes * Iaz Coates MD - 04/28/2019 4:28 PM EDT Gastroenterology and Hepatology Pre-Procedure History and Physical Exam Procedure: EGD: Indication: Abnormal CT scan PROBLEM LIST Patient Active Problem List Diagnosis Code ??? Ulcerative colitis K51.90 ??? Diabetes mellitus E11.9 ??? Hearing loss H91.90 ??? GERD (gastroesophageal reflux disease) K21.9 ??? Hydrocele N43.3 ??? Asthma J45.909 HISTORY OF PRESENT ILLNESS Brian Rodriguez is a 68 y.o. with h/o UC who presents for EGD for duodenal thickening. MEDICATIONS No current facility-administered medications on file prior to encounter. Current Outpatient Medications on File Prior to Encounter Medication Sig Dispense Refill ??? budesonide 2 mg/actuation Foam Place 2 mg rectally See Admin Instructions. 2mg once every nightx 4 weeks; then 2mg every other night until symptoms better then stop. 133.6 g 0 ??? sulfaSALAzine (AZULFIDINE) 500 mg Tablet Take 4 tablets by mouth 2 times daily. 240 tablet 5 ??? albuterol 90 mcg/actuation HFA Aerosol Inhaler Inhale 2 puffs into the lungs every 4 hours as needed for Wheezing. Use with spacer ??? DOT SCOTT U-100 INSULIN 100 unit/mL (3 mL) pen Inject 50 Units subcutaneously. 0 ??? propranolol (INDERAL LA) 80 mg Capsule,Sustained Action 24 hr take 2 capsules by mouth daily for MIGRAINE PROPHYLAXIS 0 ??? lisinopril (PRINIVIL;ZESTRIL) 10 mg Tablet take 1 tablet by mouth once daily 0 ??? metFORMIN (GLUCOPHAGE) 1,000 mg Tablet Take 1,000 mg by mouth 2 times daily (with meals). 0 ??? tamsulosin (FLOMAX) 0.4 mg Capsule, Sust. Release 24 hr Take 0.4 mg by mouth daily. ??? glipiZIDE (GLUCOTROL) 10 mg 24 hr tablet Take 10 mg by mouth daily. ??? folic acid (FOLVITE) 1 mg tablet Take 1 tablet by mouth daily. 90 tablet 3 ??? omeprazole (PRILOSEC) 20 mg capsule Take 40 mg by mouth daily. ??? hydrocortisone (CORTIFOAM) 10 % (80 mg) Foam Place 1 applicator rectally nightly. (Patient not taking: Reported on 04/25/2019) 90 g 3 PHYSICAL EXAM: GEN: Alert, cooperative, pleasant and in NAD HEENT: Airway examined, oropharyngeal clear without lesions Mallampati Score: II (soft palate, uvula, fauces visible) Neck: Supple, no lymphadenopathy or masses LUNGS: Clear to auscultation HEART: Regular rate and rhythm, normal S1, S2 ABDOMEN: Normal bowel sounds, soft, non tender, non distended EXT: No clubbing, cyanosis or edenoma NEURO: No focal deficits RECENT LABS Recent Results (from the past 24 hour(s)) POCT Glucose Result Value Ref Range POC Glucose 91 65 - 199 mg/dL ASSESSMENT AND PLAN Brian Rodriguez is a 68 y.o. y/o who presents for endoscopy. Risks and benefits of the procedure explained to the patient. We discussed in depth possible risks include reaction to anesthesia, bleeding, infection, perforation, bruising of other organs in the body, missed lesions including cancer, and/or other unforseen complication. All of the patients questions were answered. Patient wishes to proceed and consent was signed. Proceed with the planned endoscopic procedure. ASA 2 - Patient with mild systemic disease with no functional limitations Sedation Plan: moderate (conscious sedation) Iza Coates MD Gastroenterology attending Pager [phone] documented in this encounter Plan of Treatment Upcoming Encounters Date Type Department Care Team (Late st Contact Info) Description 08/15/2024 9:00 AM EDT Office [place] [address] Dion Barlow MD [facility] [place] [place] [address] 09/01/2024 11:20 AM EDT Office Visit Dermatology at [facility] [address] [place] [address] Gómez Mercer MD [facility] DR ED[place] [address] 09/21/2024 2:45 PM EDT Office Visit [place] [address] Trung Hoyos MD [facility] [place] [address] documented as of this encounter Procedures Procedure Name Priority Date/Time Associated Diagnosis Comments SPECIMEN TO PATHOLOGY Routine 04/28/2019 5:03 PM EDT SPECIMEN TO PATHOLOGY Routine 04/28/2019 5:03 PM EDT SURGICAL PATHOLOGY REPORT Routine 04/28/2019 4:50 PM EDT UPPER GI ENDOSCOPY Routine 04/28/2019 4: 39 PM EDT EGD, UPPER GI ENDOSCOPY (WRVU 2.09) 04/28/2019 4:37 PM EDT Left sided colitis without complications POCT GLUCOSE Routine 04/28/2019 3:46 PM EDT documented in this encounter Results * Specimen to Pathology (04/28/2019 5:03 PM EDT) AP Specimen 04/28/2019 5:03 PM EDT 04/28/2019 5:03 PM EDT Narrative [facility] - 04/28/2019 5:03 PM EDT Specimen requisition ordered. ??Separate Pathology report to follow Iza Coates MD PATHOLOGY/CYTOLOG Y ORDERABLES [facility] [place] [address] * Specimen to Pathology (04/28/2019 5:03 PM EDT) AP Specimen 04/28/2019 5:03 PM EDT 04/28/2019 5:03 PM EDT Narrative [facility] - 04/28/2019 5:03 PM EDT Specimen requisition ordered. ??Separate Pathology report to follow Iza Cotaes MD PATHOLOGY/CYTOLOG Y ORDERABLES [facility] [place] [address] * Surgical Pathology Report (04/28/2019 4:50 PM EDT) Final Diagnosis [id number] ? Location: 4T; EA10; A The signing pathologist has (i) examined the relevant preparation(s) for the specimen(s) and (ii) rendered or confirmed the diagnosis(es). . ?Surgical Pathology DIAGNOSIS A - Random duodenum, biopsy: Duodenal mucosa within normal limits, including preserved villous architecture. B - Fundic gland, polypectomy: Gastric fundic gland polyp. Electronically signed by: ??Joana Soler MD Verified: ??05/02/2019 ?Pathologist Performed at: ??-[facility] Dept. of Pathology, [place], [place] CLINICAL INFORMATION Specimen Submitted: A - Randokm duodenal biopsies B - Fundic gland polyp Clinical History and Diagnosis: History of UC, duodenal thickening SPECIMEN PROCESSING A - Labeled/Fixativ e: Random duodenal biopsies, formalin. Quantity/Size: Five, 0.3-0.5 cm. Tissue Description: Soft, pink tissues. Sections/Proces sing: Submitted en toto ??in 1 cassette labeled A1. B - Labeled/Fixativ e: Fundic gland polyp, formalin. Quantity/Size: Two, 0.2 and 0.3 cm. Tissue Description: Soft, pink tissues. Sections/Proces sing: Submitted en toto ??in 1 cassette labeled B1. ??ejr 05/02/2019 4:02 PM EDT [facility] GI Biopsy 04/28/2019 4:50 PM EDT 04/28/2019 4:50 PM EDT GI Biopsy 04/28/2019 4:50 PM EDT 04/28/2019 4:50 PM EDT Iza Coates MD PATHOLOGY/CYTOLOG Y ORDERABLES Performing Organization Address [facility]/State/ZIP Co de Phone Number [facility] [place] [address] * UPPER GI ENDOSCOPY (04/28/2019 4:39 PM EDT) UPPER GI ENDOSCOPY [facility] Endoscopy Procedure Date: 04/28/2019 4:39 PM ? Patient Name: Brian Rodriguez ? N: [id number] ? Date of : 1950 ? Age: 68 ? Order #: [id number] ? Instrument Name: [id number] ? Procedure: ? Upper GI endoscopy Indications: ? Abnormal CT of the GI tract (duodenal ? thickening) Providers: ? Iza Coates MD, Nohemi Ball, ? RN, Jonathan Ko, Iuss Acoustic Analyst Referring MD: ?Maximilian Fall MD Requesting Provider: Marcelle Weinberg MD Medicines: ? Midazolam 4 mg IV, Fentanyl 150 ? micrograms IV Complications: ? No immediate complications. Procedure: ? The procedure, indications, benefits, ? risks and alternatives were explained ? to the patient. Specifically ? discussed were potential ? complications including, but not ? limited to, bleeding, perforation, ? infection, missing a cancer, and ? adverse medication reactions. The ? Endoscope was introduced through the ? mouth, and advanced to the third part ? of duodenum. The patient tolerated ? the procedure well. The upper GI ? endoscopy was accomplished without ? difficulty. The patient tolerated the ? procedure well. ? Findings: ? The examined esophagus was normal. ? The Z-line was regular and was found 45 cm from the ? incisors. ? A 3 cm hiatal hernia was present. ? A single 5 mm sessile polyp was found in the gastric ? fundus. The polyp was removed with a cold biopsy ? forceps. Resection and retrieval were complete. ? The examined duodenum was normal without endoscopic ? evidence of abnormal thickening. Several random ? biopsies were taken with a cold forceps for histology. ? Moderate Sedation: ? I was present during the intraservice time as ? documented by the sedation RN. Impression: ?- Normal esophagus. ? - Z-line regular, 45 cm from the ? incisors. ? - 3 cm hiatal hernia. ? - A single gastric polyp. Resected ? and retrieved. ? - Normal examined duodenum. Biopsied. Recommendation: ?- Await pathology results. ? - Discharge home ambulatory. ? - Follow-up with Farideh Weinberg APRN ? and Dr. Karthik Barlow in IBD clinic ? as scheduled. ? Attending Participation: ? I personally performed the entire procedure. ? ____ Iza Coates MD 04/28/2019 4:57:28 PM Number of Addenda: 0 Note Initiated On: 04/28/2019 4:39 PM PROVATION 04/28/2019 4:39 PM EDT Maximilian Fall MD GENERAL SURGICAL ORD ERABLES PROVATION * POCT Glucose (04/28/2019 3:46 PM EDT) Glucose, POC 91 65 - 199 mg/dL [facility] Comment: Supplemental ranges: <140 mg/dL before meals <180 mg/dL all other times of the day Blood specimen (specimen) 04/28/2019 3:46 PM EDT 04/28/2019 3:46 PM EDT Iza Coates MD POINT OF CARE KISHOR T ORDERABLES Performing Organization Address City/[facility]/ZIP Co de Phone Number [facility] [place] [address] documented in this encounter Visit Diagnoses Diagnosis Left sided colitis without complications Left sided ulcerative (chronic) colitis documented in this encounter Administered Medications Inactive Administered Medications - up to 3 most recent administrations Medication Order MAR Action Action Date Dose Rate Site fentaNYL 50 mcg/mL multi-dose injection ONCE PRN, Starting on Tresa 04/28/19 at 1639, Until Tresa 04/28/19 at 2006, Intra-Operative (Intra-Procedure), Routine Given 04/28/2019 4:44 PM EDT 50 mcg Right Arm Given 04/28/2019 4:41 PM EDT 50 mcg Ri ght Arm Given 04/28/2019 4:39 PM EDT 50 mcg Ri ght Arm midazolam (PF) (VERSED) multi-dose injection ONCE PRN, Starting on Tresa 04/28/19 at 1639, Until Tresa 04/28/19 at 2006, Intra-Operative (Intra-Procedure), Routine Given 04/28/2019 4:45 PM EDT 1 mg Given 04/28/2019 4:43 PM EDT 1 mg Given 04/28/2019 4:41 PM EDT 1 mg documented in this encounter Active and Recently Administered Medications Times are shown in EDT. PRN Medication Order 04/26/2019 04/27/2019 04/28/2019 fentaNYL 50 mcg/mL multi-dose injection (CANCELED) ONCE PRN, Starting on Tresa 04/28/19 at 1639, Until Tresa 04/28/19 at 2006, Intra-Operative (Intra-Procedure), Routine 1639 (Given - Provid er: Nohemi Ball RN)1641 (Given - Provider: Nohemi Ball RN)1644 (Given - Provider: Nohemi Ball RN) midazolam (PF) (VERSED) multi-dose injection (CANCELED) ONCE PRN, Starting on Tresa 04/28/19 at 1639, Until Tresa 04/28/19 at 2006, Intra-Operative (Intra-Procedure), Routine 1639 (Given - Provid er: Nohemi Ball RN)1641 (Given - Provider: Nohemi Ball RN)1643 (Given - Provider: Nohemi Ball RN)1645 (Given - Provider: Nohemi Ball RN) documented in this encounter Care Teams Skip Hoist Engineer Relationship Specialty Start Date End Date Maximilian Fall MD [address] [place] [address] PCP - General 10/01/11 02/13/21 documented as of this encounter
--- OUTSIDE RECORDS SUMMARY | 2024-06-29 16:04 | XMS_ITS | Encounter Summary ---
Author Organization Formerly [facility] [address] Care Team Providers Care Applied Statistician Name Role Phone Josue Wilkinson MD Primary Care Provider [phone] Reason for Visit * Reason Onset Date Comments Medication Refill 05/06/2021 Encounter Details Date Type Department Care Team (Late st Contact Info) Description 05/06/2021 Refill [place] [address] Marcelle Weinberg, JAZMINE [facility] [place] [address] Social History Tobacco Use Types Packs/Day Years [...] 9:00 AM EDT Office Visit [place] [address] Dion Barlow MD [facility] [place] [address] 09/01/2024 11:20 AM EDT Office Visit Dermatology at [facility] [address] [place] [address] Gómez Mercer MD [facility] DR EDDIE [place] [address] 09/21/2024 2:45 PM EDT Office Visit [facility] [place] [address] Trung Hoyos MD [facility] [place] [address] documented as of this encounter Visit Diagnoses Not on filedocumented in this encounter Care Teams Applied Statistician Relationship Specialty Start Date End Date Josue Wilkinson MD PCP - General General Internal Medicine 02/14/2107/26 documented as of this encounter
--- OUTSIDE RECORDS SUMMARY | 2024-06-29 16:04 | XMS_ITS | Encounter Summary ---
Author Organization [facility] [place] [address] Care Team Providers Care Corporate Responsibility Officer Name Role Phone Josue Wilkinson MD Primary Care Provider [phone] Encounter Details Date Type Department Care Team (Late st Contact Info) Description 04/30/2021 Telephone [place] [address] Marcelle Weinberg APRN [facility] [place] [address] Social History Tobacco Use Types Packs/Day Years [...] Telephone Encounter - Marcelle Weinberg APRN - 04/30/2021 12:34 PM EDT I spoke with Brian and reviewed his recent labs, all normal except for mild anemia, hgb 12.4. MCV 100. Will repeat CBC and get iron studies, B12 levels in a month. Orders in. documented in this encounter Plan of Treatment Upcoming Encounters Date Type Department Care Team (Late st Contact Info) Description 08/15/2024 9:00 AM EDT Office [place] [address] Dion Barlow MD [facility] [place] [address] 09/01/2024 11:20 AM EDT Office Visit Dermatology at [place] [address] [place] [address] Gómez Mercer MD [facility] [place] [address] 09/21/2024 2:45 PM EDT Office Visit [facility] [place] [address] Trung Hoyos MD [facility] [place] [address] documented as of this encounter Results * Vitamin B12 (05/31/2021 1:49 PM EDT) [facility] Vitamin B12 389 232 - 1,245 pg/mL [facility] Blood 05/31/2021 1:49 PM EDT 05/31/2021 1:52 PM EDT Narrative Resulting Agency Comment Spec In Lab Marcelle Weinberg STOCK SHAPER CHEMISTRY ORDERAB LES [facility] [place] [address] * Iron and TIBC (05/31/2021 1:49 PM EDT) Iron 86 45 - 160 mcg/dL [facility] TIBC 286 250 - 450 mcg/dL [facility] Iron Saturation 30 20 - 50 % [facility] Blood 05/31/2021 1:49 PM EDT 05/31/2021 1:52 PM EDT Narrative Resulting Agency Comment Spec In Lab Marcelle Conte Dg Weinberg STOCK SHAPER CHEMISTRY ORDERAB LES Performing Organization Address City/[facility]/ZIP Co de Phone Number [facility] [place] [address] * Ferritin (05/31/2021 1:49 PM EDT) Ferritin 94 30 - 400 ng/mL [facility] Comment: Pediatric reference ranges not verified at [facility], interpret with caution. Reference ranges for females greater than 50 years of age approach values for men, i.e., 30-400 ng/mL. Blood 05/31/2021 1:49 PM EDT 05/31/2021 1:52 PM EDT Narrative Resulting Agency Comment Spec In Lab Marcelle Conte Dg Weinberg STOCK SHAPER CHEMISTRY ORDERAB LES Performing Organization Address City/[facility] Co de Phone Number [facility] [place] [address] documented in this encounter Visit Diagnoses Diagnosis Left sided colitis without complications Left sided ulcerative (chronic) colitis documented in this encounter Care Teams Corporate Responsibility Officer Relationship Specialty Start Date End Date Josue Wilkinson MD PCP - General General Internal Medicine 02/14/2107/26 documented as of this encounter
--- OUTSIDE RECORDS SUMMARY | 2024-06-29 16:04 | XMS_ITS | Encounter Summary ---
Author Organization Formerly [facility] [place] [address] Care Team Providers Care Abrasive Mixer Name Role Phone Maximilian Fall MD Primary Care Provider [phone] Encounter Details Date Type Department Care Team (Late st Contact Info) Description 01/17/2021 Tele[place] [phone] César Garcia Social History Tobacco Use Types Packs/Day Years [...] encounter Miscellaneous Notes * Telephone Encounter - César Garcia - 01/17/2021 1:33 PM EST Brian Rodriguez [id number] Diagnosis/Indication: a repeat colonoscopy in two years from 02/22/19 1. Have you ever had a/an Colonoscopy before? Yes: Date 02/22/2019 If yes, did you have any problems [...] Allergies to Eggs, Latex or Medications? Yes: See chart 6. Do you take any Oral Iron [...] to patient: You must have a responsible democrat who will drive you to your procedure, stay onc[place] for the entire duration of your procedure, and drive you home from your procedure? *Please Verify the height and weight, and adjust if height and/or weight have changed* Estimated body mass index is 31.08 kg/m?? as calculated from the following: Height as of 09/12/19: 193 cm (6' 4). Weight as of 05/09/19: 115.8 kg (255 lb 4.8 oz). Age:70 y.o. documented in this encounter Plan of Treatment Upcoming Encounters Date Type Department Care Team (Late st Contact Info) Description 08/15/2024 9:00 AM EDT Office [place] [address] Dion Barlow MD [facility] [place] [address] 09/01/2024 11:20 AM EDT Office Visit Dermatology at [facility] [address] [place] [address] Gómez Mercer MD [facility] DR EDDIE [place] [address] 09/21/2024 2:45 PM EDT Office Visit [place] [address] Trung Hoyos MD [facility] [place] [address] documented as of this encounter Visit Diagnoses Not on filedocumented in this encounter Care Teams Abrasive Mixer Relationship Specialty Start Date End Date Maximilian Fall MD [address] [place] [address] PCP - General 10/01/11 02/13/21 documented as of this encounter
--- OUTSIDE RECORDS SUMMARY | 2024-06-29 16:04 | XMS_ITS | Encounter Summary ---
Author Organization [facility] [place] [address] Care Team Providers Care Textile Screen Maker Name Role Phone Maximilian Fall MD Primary Care Provider [phone] Encounter Details Date Type Department Care Team (Late st Contact Info) Description 04/25/2019 Tele[place] [phone] Brandy Durham Social History Tobacco Use Types Packs/Day Years [...] encounter Miscellaneous Notes * Telephone Encounter - Brandy Durham - 04/25/2019 11:18 AM EDT Endoscopy Checklist- EGD Ordered by:Farideh Weinberg APRN 04/25/2019 Indication:left sided colitis problems w/procedure in past?no Type of sedation:IVCS Blood Thinners?:no Pacemaker/Defibrillator?:no Diabetes?:yes, on Metformin,Glipizide,Basaglar insulin Allergies?:yes, in chart Supplemental Iron?:no Hx of 3 or more abdominal surgeries?:yes Problems with sedation or anesthesia?:sedate well, requires a lot c-pap or O2 at home?:no Narcotic strength pain meds?:no Current medical conditions (especially heart or lung)?:asthma BMI:30.53 Prep:proclear Die Storage Clerk?:yes Instructions to patient?:instructions to pt@4L/Exit~jhd documented in this encounter Plan of Treatment Upcoming Encounters Date Type Department Care Team (Late st Contact Info) Description 08/15/2024 9:00 AM EDT Office [place] [phone] Dion Barlow MD [facility] [place] [address] 09/01/2024 11:20 AM EDT Office Visit Dermatology at [address] [address] Gómez Mercer MD [facility] [place] [address] 09/21/2024 2:45 PM EDT Office Visit [place] [address] Trung Hoyos MD [facility] [place] [address] documented as of this encounter Visit Diagnoses Not on filedocumented in this encounter Care Teams Textile Screen Maker Relationship Specialty Start Date End Date Maximilian Fall MD [address] [place] [address] PCP - General 10/01/11 02/13/21 documented as of this encounter
--- OUTSIDE RECORDS SUMMARY | 2024-06-29 16:04 | XMS_ITS | Encounter Summary ---
Author Organization [facility] [place] [address] Care Team Providers Care Executive Asst Name Role Phone Maximilian Fall MD Primary Care Provider [phone] Encounter Details Date Type Department Care Team (Late st Contact Info) Description 02/22/2019 Orders Only [place] [phone] Dion Barlow MD [facility] [place] [address] Social History Tobacco Use Types Packs/Day Years [...] 9:00 AM EDT Office Visit [place] [phone] Dion Barlow MD [facility] [place] [address] 09/01/2024 11:20 AM EDT Office Visit Dermatology at [facility] [address] [place] [address] Gómez Mercer MD [facility] DR EDDIE [place] [address] 09/21/2024 2:45 PM EDT Office Visit [facility] and Sp[facility] Center at [facility] [place] [address] Trung Hoyos MD [facility] [address] documented as of this encounter Visit Diagnoses Not on filedocumented in this encounter Care Teams Executive Asst Relationship Specialty Start Date End Date Maximilian Fall MD [address] [place] [address] PCP - General 10/01/11 02/13/21 documented as of this encounter
--- OUTSIDE RECORDS SUMMARY | 2024-06-29 16:04 | XMS_ITS | Encounter Summary ---
Author Organization [facility] Address [facility] [place] [address] Care Team Providers Care Sap Bw Developer Name Role Phone Josue Wilkinson MD Primary Care Provider [phone] Encounter Details Date Type Department Care Team (Latest Contact Info) Description 02/26/2021 2:52 PM EDT - 02/26/2021 6:22 PM EDT Hospital [place] [address] Dion Barlow MD [facility] [place] [address] Discharge Disposition: Home Social History Tobacco Use [...] Sign Reading Time Taken Comments Blood Pressure 125/62 02/26/2021 5:45 PM EDT Pulse 59 02/26/2021 5:10 PM EDT Temperature 36.4 ??C (97.5 ??F) 02/26/2021 3:37 PM ED T Respiratory Rate 16 02/26/2021 5:45 PM EDT Oxygen Saturation 93% 02/26/2021 5:45 PM EDT Inhaled Oxygen Concentration - - [...] to be checked. Thursday-Thursday Same Day Endo [phone] [id number] Otherwise contact [phone] and ask to speak to the aircraft electronics technical officer rewards consultant Follow up care is a le part [...] 9:00 AM EDT Office [place] [address] Dion Barlow MD [facility] [place] [address] 09/01/2024 11:20 AM EDT Office Visit Dermatology at [facility] [address] [place] [address] Gómez Mercer MD [facility] DR ED[place] [address] 09/21/2024 2:45 PM EDT Office Visit [facility] and Spine Center at [facility] [place], [facility] [place] [phone] Trung Hoyos MD [facility] [place] [address] documented as of this encounter Procedures Procedure Name Priority Date/Time Associated Diagnosis Comments POCT GLUCOSE Routine 02/26/2021 5:51 PM EDT SPECIMEN TO PATHOLOGY Routine 02/26/2021 5:10 PM EDT SPECIMEN TO PATHOLOGY Routine 02/26/2021 5:10 PM EDT SPECIMEN TO PATHOLOGY Routine 02/26/2021 5:10 PM EDT SURGICAL PATHOLOGY REPORT Routine 02/26/2021 4:53 PM EDT Colonoscopy, Sallie Tang ([id number]) 02/26/2021 4:28 PM EDT a repeat colonoscopy in two years from 02/22/19 COLONOSCOPY Routine 02/26/2021 4:21 PM EDT POCT GLUCOSE Routine 02/26/2021 3:42 PM EDT documented in this encounter Results * POCT Glucose (02/26/2021 5:51 PM EDT) Glucose, POC 160 65 - 199 mg/dL [facility] Comment: Supplemental ranges: <140 mg/dL before meals <180 mg/dL all other times of the day Blood specimen (specimen) 02/26/2021 5:51 PM EDT 02/26/2021 12:00 PM EDT L Karthik Barlow MD POINT OF CARE TEST O CEE Performing Organization Address [facility] Co de Phone Number [facility] [place] [address] * Specimen to Pathology (02/26/2021 5:10 PM EDT) AP Specimen 02/26/2021 5:10 PM EDT 02/26/2021 5:10 PM EDT Narrative [facility] - 02/26/2021 5:10 PM EDT Specimen requisition ordered. ??Separate Pathology report to follow L Karthik Barlow MD PATHOLOGY/CYTOLOGY O CEE Performing Organization Address [facility] Co de Phone Number [facility] [place] [address] * Specimen to Pathology (02/26/2021 5:10 PM EDT) AP Specimen 02/26/2021 5:10 PM EDT 02/26/2021 5:10 PM EDT Narrative [facility] - 02/26/2021 5:10 PM EDT Specimen requisition ordered. ??Separate Pathology report to follow L Karthik Barlow MD PATHOLOGY/CYTOLOGY O CEE Performing Organization Address [facility] Co de Phone Number [facility] [place] [address] * Specimen to Pathology (02/26/2021 5:10 PM EDT) AP Specimen 02/26/2021 5:10 PM EDT 02/26/2021 5:10 PM EDT Narrative [facility] - 02/26/2021 5:10 PM EDT Specimen requisition ordered. ??Separate Pathology report to follow L Karthik Barlow MD PATHOLOGY/CYTOLOGY O CEE [facility] [place] [address] * Surgical Pathology Report (02/26/2021 4:53 PM EDT) Final Diagnosis [id number] ? Location: 4T; EA08; A The signing [...] MD Verified: ??03/04/2021 16:33 ??Pathologist Performed at: ??-[facility] Dept. of Pathology, [place], [place] SPECIMEN(S) SUBMITTED A - right colon [...] labeled C1. ??shb 03/04/2021 4:33 PM EDT [facility] GI Biopsy 02/26/2021 4:53 PM EDT 02/26/2021 4:53 PM EDT GI Biopsy 02/26/2021 4:53 PM EDT 02/26/2021 4:53 PM EDT GI Biopsy 02/26/2021 4:53 PM EDT 02/26/2021 4:53 PM EDT L Karthik Barlow MD PATHOLOGY/CYTOLOGY O RDERABLES [facility] [place] [address] * COLONOSCOPY (02/26/2021 4:21 PM EDT) COLONOSCOPY [facility] Endoscopy ___ Procedure Date: 02/26/2021 4:21 PM ? Patient Name: Brian Rodriguez ? Date of : 1950 ? Age: 70 ? Order #: [id number] ? Instrument Name: [id number] ? ___ Procedure: ? Colonoscopy Indications: ? High risk colon cancer surveillance: ? Ulcerative colitis Patient Profile: ? This is a 70 year old male. This ? patient has left-sided ulcerative ? colitis, is taking sulfasalazine and ? topical steroid foam, and he is ? experiencing mild symptoms. Providers: ? Davina Barlow MD, Marcelo Horne. ? Robi Lawson MD: ?Josue Wilkinson Medicines: ? Midazolam 4 mg IV, Fentanyl [...] preparation was evaluated using ? the BBPS ([facility] Bowel Preparation ? Scale) with scores of: [...] Glucose, POC 128 65 - 199 mg/dL [facility] Comment: Supplemental ranges: <140 mg/dL before meals <180 mg/dL all other times of the day Blood specimen (specimen) 02/26/2021 3:42 PM EDT 02/26/2021 12:00 PM EDT L Karthik Barlow MD POINT OF CARE TEST O CEE [facility] [place] [address] documented in this encounter Visit Diagnoses Not on filedocumented in this encounter Administered Medications Inactive Administered Medications - up to 3 most recent administrations Medication Order MAR Action Action Date Dose Rate Site ondansetron (pf) (Zofran) (2 mg/mL) injection 4 [...] multi-dose injection (CANCELED) ONCE PRN, Starting on 02/26/21 at 1631, Until Tu02/26/21 at 2022, Intra-Operative (Intra-Procedure), Routine 1631 (Given - Provid er: Marcelo Lawson RN)1634 (Given - Provider: Marcelo Lawson RN)1637 (Given - Provider: Marcelo Lawson RN)1642 (Given - Provider: Marcelo Lawson, RONY)1647 (Given - Provider: Marcelo Lawson RN) ondansetron (pf) (Zofran) (2 mg/mL) injection 4 mg (COMPLETED) 4 mg, Intravenous, ONCE PRN, 1 dose, Starting on Thu02/26/21 at 1743, Until Thu02/26/21 at 1722, Nausea, Endoscopy (Recovery-Hospital Unit) 1722 (Given - Provid er: Emilia Love RN) documented in this encounter Care Teams Sap Bw Developer Relationship Specialty Start Date End Date Josue Wilkinson MD PCP - General General Internal Medicine 02/14/21 9/3 documented as of this encounter
--- OUTSIDE RECORDS SUMMARY | 2024-06-29 16:04 | XMS_ITS | Encounter Summary ---
Author Organization [facility] [place] [address] Care Team Providers Care Care Information Associate Name Role Phone Maximilian Fall MD Primary Care Provider [phone] Reason for Visit * Reason Onset Date Comments Medication Refill 06/27/2019 Encounter Details Date Type Department Care Team (Late st Contact Info) Description 06/27/2019 Refill [place] [phone] Sophia Coleman, CCMA Social History Tobacco Use Types Packs/Day Years [...] 9:00 AM EDT Office [place] [phone] Dion Barlow MD [facility] [place] [address] 09/01/2024 11:20 AM EDT Office Visit Dermatology at [facility] [address] [place] [phone] Gómez Mercer MD [facility] [place] [address] 09/21/2024 2:45 PM EDT Office Visit [facility] [place] [address] Trung Hoyos MD [facility] [place] [address] documented as of this encounter Visit Diagnoses Not on filedocumented in this encounter Care Teams Care Information Associate Relationship Specialty Start Date End Date Maximilian Fall MD [address] [place] [address] PCP - General 10/01/11 02/13/21 documented as of this encounter
--- OUTSIDE RECORDS SUMMARY | 2024-06-29 16:04 | XMS_ITS | Encounter Summary ---
Author Organization [facility] [place] [address] Care Team Providers Care Account Manager Relief Name Role Phone Josue Wilkinson MD Primary Care Provider [phone] Encounter Details Date Type Department Care Team (Latest Contact Info) Description 04/29/2021 9:00 AM EDT Office [place] [address] Marcelle Weinberg APRN [facility] [place] [address] Left sided colitis without complications Social History [...] Sign Reading Time Taken Comments Blood Pressure 160/78 04/29/2021 9:25 AM EDT Pulse 77 04/29/2021 9:25 AM EDT Temperature - - Respiratory Rate - - Oxygen Saturation - - Inhaled Oxygen Concentration - - Weight 116.2 kg (256 lb 3.2 oz) 04/29/2021 9:25 AM EDT Height 193 cm (6' 4) 04/29/2021 9:25 AM EDT Body Mass Index 31.19 04/29/2021 9:25 AM EDT documented in this encounter Progress Notes * Marcelle Weinberg C, [employer] - 04/29/2021 9:00 AM EDT Primary care provider: Josue Wilkinson MD Other providers: Dr. Barlow Reason for visit: Ulcerative colitis f/u Problem List Patient Active Problem List Diagnosis Date Noted ??? Ulcerative colitis 10/01/2011 Priority: High ??? Diabetes mellitus 10/01/2011 ??? Hearing loss 10/01/2011 ??? GERD (gastroesophageal reflux disease) 10/01/2011 ??? Hydrocele 10/01/2011 ??? Asthma 10/01/2011 Resolved Hospital Problems No resolved problems to display. Detailed IBD History: ??? Ulcerative colitis ? Overview Note: ? Colonoscopy 04/08/10 (Dr. Gomes [facility]) - inflammation only within the rectum and sigmoid; extent of the exam was to the hepatic flexure; biopsies proximal to the sigmoid nl ?? Repeat exam 11/27/11 ([facility] mildly active colitis in the sigmoid colon and a small cecal patch. Suspected lack of distal involvement due to topical therapies; sigmoid diverticulosis; nl ileum. Biopsies with active colitis on the L but not R colon. 4 mm TA in the transverse ?? Flex sig (03/16/12) for screening for MERIT. Mild (enrique 1) colitis to 25 cm - rectum spared ?? EGD (2019): normal [done for gastric thickening on CT] ?? 02/26/21 Colonoscopy: Ulcerative colitis partially treated with only mild activity in the distal rectum.Moderate diverticulosis from sigmoid to ascending colon. Two 2 to 3 mm polyps in the rectum, ??removed with a cold snare. Resected and retrieved. Three 3 to 4 mm polyps in the ??transverse colon, removed with a cold snare. Resected and retrieved. Three 3 mm polyps from ascending colon to cecum, removed with a cold snare. Resected and retrieved. The examined portion of the ileum was normal. ??A - Right colon, ??polypectomy: Fragments of hyperplastic polyp. B - Transverse colon, ?? polypectomy: Tubular adenoma. ??Hyperplastic polyp. C - Rectum, ??polypectomy: ??Hyperplastic polyp. ?? TREATMENT: cortenemas, Asacol, Rowasa, prednisone, and imodium Interval History: - Last visit with Dr. Barlow February 2020 - Had a colonoscopy 02/2021, see below - After colo, his topical rectal foam was increased to nightly for 2 weeks, then continue every other night (four nights per week) indefinitely. - However, he ran out of his enema about a month ago now and since then, has been having increased diarrhea. - On sulfasalazine 3 tabs BID, tolerating this better. Unable to tolerate 4 tabs BID, gets upset stomach. - BM 5-8x/day, loose stools. + mucus, no bleeding. No nocturnal BM. - This is associated with crampy lower abdominal pain. - No fever/chills Just sweaty. - He is eating. No nausea/vomiting. Review of systems as in the HPI, the rest of the review of systems were negative. Past Medical History, Social History and Family History is unchanged. Medications Outpatient Encounter Medications as of 04/29/2021 Medication Sig Dispense Refill ??? budesonide 2 mg/actuation Foam Place 2 mg rectally See Admin Instructions. 2mg rectally 1-3 x weekly. 133.6 g 0 ??? sulfaSALAzine (Azulfidine) 500 mg Tablet TAKE 4 TABLETS BY MOUTH TWICE A DAY 720 tablet 3 ??? losartan (Cozaar) 50 mg Tablet TK [...] facility-administered encounter medications on file as of 04/29/2021. Allergies/Adverse reactions Erythromycin base and Tetracyclines Physical Examination Patient appears well Wt Readings from Last 3 Encounters: 02/26/21 114.8 kg (253 lb) 05/09/19 115.8 kg (255 lb 4.8 oz) 04/28/19 113.4 kg (250 lb) Vitals: 04/29/21 0925 BP: 160/78 BP Location (NBP): Left arm Patient Position: Sitting BP Cuff Sizes: Adult (25-34 cm) Pulse: 77 Weight: 116.2 kg (256 lb 3.2 oz) Height: 193 cm (6' 4) Heart: regular Resp: CTA Abd: normal BS, soft, mild tenderness on LLQ, and RLQ on palpation. Recent labs Admission on 02/26/2021, Discharged on 02/26/2021 Component Date Value Ref Range Status ??? COLONOSCOPY 02/26/2021 Final Value:[facility] Endoscopy Procedure Date: 02/26/2021 4:21 PM Patient Name: Brian Rodriguez Date of : 1950 Age: 70 Order #: [id number] Instrument Name: [id number] Procedure: Colonoscopy Indications: High risk colon cancer surveillance: Ulcerative colitis Patient Profile: This is a 70 year old male. This patient has left-sided ulcerative colitis, is taking sulfasalazine and topical steroid foam, and he is experien cing mild symptoms. Providers: Davina Barlow MD, Robi Payne MD: Josue Wilkinson Medicines: Midazolam 4 mg IV, Fentanyl 175 micrograms IV Complications: No immediate complications. Procedure: [...] and proposed procedure were verified by the physician in the pre-procedure area in the endoscopy suite. Mental Status Examination: alert and oriented. Airway Examination: normal oropharyngeal airway and neck mobility. Respiratory Examination: clear to auscultation. CV Examination: normal. ASA Grade Assessment: II - A patient [...] adverse medication reactions. The patient was placed i n the left lateral decubitus position, and a [...] bowel preparation was evaluated using the BBPS ([place] Bowel Preparation Scale) with scores of: Right Colon = 2 (minor amount of residual staining, small fragments of stool and/or opaque liquid, but mucosa seen well), Transverse Colon = 3 (entire mucosa seen well with no residual staining, small fragments of stool or opaque liquid) and Left Colon = 3 (entire mucosa seen well with no residual staining, small fragments of stool or opaque liquid). The total BBPS score equals 8. The quality of the bowel preparation was good. Scope withdrawal time was 15 minutes. Findings: The perianal and digital rectal examinations were normal. Multiple medium-mouthed diverticula were found from sigmoid to ascending colon with vast majority within the sigmoid colon. From 18-23 cm within the sigmoid, there was circumferential mild granul arity, patchy erythema, and diminished vascularity. The rest of the colonic mucosa was without any signs of active colitis. Two flat polyps were found in the rectum. The polyps were 2 to 3 mm in size with well-circumscribed borders. These polyps were removed with a cold snare. Resection and retrieval were complete. Three sessile polyps were found in the transverse colon. The polyps were 3 to 4 mm in size with well-circumscribed borders. These polyps were removed with a cold snare. Resection and retrieval were complete. Three sessile polyps were found from the ascending colon to the cecum. The polyps were 3 mm in size with well-circumscribed borders. These polyps were removed with a cold snare. Resection and retrieval were complete. The terminal ileum appeared normal. Moderate Sedation: I was present durin g the intraservice time as documented by the sedation RN. Impression: - Ulcerative colitis partially treated with only mild activity in the distal rectum. - Moderate diverticulosis from sigmoid to ascending colon. - Two 2 to 3 mm polyps in the rectum, removed with a cold snare. Resected and retrieved. - Three 3 to 4 mm polyps in the transverse colon, removed with a cold snare. Resected and retrieved. - Three 3 mm polyps from ascending colon to cecum, removed with a cold snare. Resected and retrieved. - The examined portion of the ileum was normal. Recommendation: - Await pathology results. Pending results, consider repeat exam in one year. - Increase topical rectal foam to nightly for 2 weeks, then continue every other night (four nights per week) indefinitely. - Follow-up in IBD Clinic Attending Participation: I personally performed the entire procedure. I was present during the intraservice time as documented by the sedation RN. L. Karthik Barlow MD 02/26/2021 5:56:12 PM Number of Addenda: 0 Note Initiated On: 02/26/2021 4:21 PM ??? POC Glucose 02/26/2021 160 65 - 199 mg/dL Final ??? POC Glucose 02/26/2021 128 65 - 199 mg/dL Final ??? Surgical Pathology Report 02/26/2021 Final Value:[id number] Location: 4T; EA08; A The signing pathologist has (i) examined the relevant preparation(s) for the specimen(s) and (ii) rendered or confirmed the diagnosis(es). . Surgical Pathology DIAGNOSIS A - Right colon, polypectomy: - Fragments of hyperplastic polyp. B - Transverse colon, polypectomy: - Tubular adenoma. - Hyperplastic polyp. C - Rectum, polypectomy: - Hyperplastic polyp. CR-PX Electronically signed by: Dilip Maria MD Verified: 03/04/2021 16:33 Pathologist Performed at: -[facility] Dept. of Pathology, [place], [place] SPECIMEN(S) SUBMITTED A - right colon polyps x 3, excision (3) B - transverse colon polyps x 3, excision (3) C - rectum polyps x 2, excision (2) CLINICAL INFORMATION Ulcerative colitis SPECIMEN PROCESSING A - Labeled/Fixative: Right colon polyps x3, formalin. Quantity/Size: Three, 0.6 x 0.3 cm, 0.7 x 0.2 cm, and 1.0 x 0.2 cm. Tissue Description: Partially flattened stephen, translucent strips of mucosa. Sections/Processing: Inked, sectioned and entirely, separately submitted in 3 cassettes labeled A1-A3. B - Labeled/Fixative: Transverse colon polyps x3, formalin. Quantity/Size: Three, 0.3 x 0.2 cm, 0.6 x 0.3 cm, and 1.0 x 0.2 cm. Tissue Description: Irregular, yellow-stephen strips of translucent mucosa, the largest with a 0.4 x 0.63 x 0.2 cm stephen-red central polyp. Sections/Processing: The largest specimen is inked, trisected and separately submitted. Entirely submitted in 2 cassettes as follows: B1: Smaller, polypoid tissues, intact B2: Larger, inked and trisected mucosal tissue with central polyp C - Labeled/Fixative: Rectum polyps x2, formalin. Quantity/Size: Single, 0.8 x 0.3 x 0.2 cm. Tissue Description: Sessile appearing rubbery, stephen mucosal polyp. Sections/Processing: Inked, trisected and entirely submitted in 1 cassette labeled C1. shb Recent endoscopic procedures None Recent relevant imaging None Assessment/Plan: Mr. Rodriguez is a 70 y.o. patient with ulcerative colitis. On Sulfasalazine 3 tabs BID, could not tolerate higher dose ( upset stomach). He ran out of his Uceris foam enema a month ago and since then with increased diarrhea and lower cramp[y abdominal pain. Recent colonoscopy showed Ulcerative colitis partially treated with only mild activity in the distal rectum. We will resumed his Uceris foam, Rx sent in. Will get labs today. Plans: - Labs today - Restart Uceris foam q hs x2 weeks then continue every other night (four nights per week) indefinitely. - Continue Sulfasalazine 3 tabs BID - Will check on him in 2 weeks for status update or sooner if worsened?? - Recommend repeat colonoscopy in 1 year ( due 02/2022) - F/U with Dr. Barlow in 4 months or sooner with me if needed. 25 minutes of this 30 minutes appointment were spent in direct counseling regarding treatment of IBD. Please contact me if there are any further questions regarding the care of this patient. Shan Weinberg APRN [facility] Section of Gastroenterology [place] [address] documented in this encounter Plan of Treatment Upcoming Encounters Date Type Department Care Team (Late st Contact Info) Description 08/15/2024 9:00 AM EDT Office [place] [address] Dion Barlow MD [facility] [place] [address] 09/01/2024 11:20 AM EDT Office Visit Dermatology at [facility] [address] [place] [address] Gómez Mercer MD [facility] DR ED[place] [address] 09/21/2024 2:45 PM EDT Office Visit Pain and Spine Center at [facility] [place] [address] Trung Hoyos MD [facility] [place] [address] documented as of this encounter Procedures Procedure Name Priority Date/Time Associated Diagnosis Comments HC C-REACTIVE PROTEIN Routine 04/29/2021 10:22 AM EDT Left sided colitis without complications HEMOGRAM Routine 04/29/2021 10:22 AM EDT Left sided colitis without complications DIFFERENTIAL, AUTOMATED Routine 04/29/2021 10:22 AM EDT Left sided colitis without complications HC ESR-SEDIMENTATION RATE, BLOOD Routine 04/29/2021 10:22 AM EDT Left sided colitis without complications HC CBC,PLT & AUTO DIFF Routine 04/29/2021 10:22 AM EDT Left sided colitis without complications COMPREHENSIVE METABOLIC PANEL Routine 04/29/2021 10:22 AM EDT Left sided colitis without complications documented in this encounter Results * (ABNORMAL) Differential, Automated (04/29/2021 10:22 AM EDT) Neutrophil % 65.3 % [facility] Neutrophil Absolute 3.34 1.70 - 6.10 x10(3)/mc L [facility] Lymph % 23.0 % [facility] Lymphocytes Abs 1.2 0.9 - 3.2 x10(3)/mc L [facility] Monocyte % 6.6 % [facility] Monocyte Abs 0.3 0.3 - 0.9 x10(3)/[facility] Eos % 2.9 % [facility] Eosinophils Abs 0.2 0.0 - 0.4 x10(3)/[facility] Basophil % 1.0 % [facility] Baso Absolute 0.0 0.0 - 0.1 x10(3)/[facility] Immature Gran % 1.20 % [facility] Comment: Immature granulocytes(IG's)percentage and absolute count will include metamyelocytes, myelocytes, and promyelocytes. Blood smears from CBCs yielding IG's will be scanned manually for concordance. If this scan disagrees with the automated IG or if promyelocytes are noted, a manual differential will be performed. Immature Gran Absolute 0.06(H) 0.00 - 0.04 x10(3)/[facility] Blood 04/29/2021 10:2 2 AM EDT 04/29/2021 10:29 AM EDT Narrative Resulting Agency Comment Spec In Lab Marcelle Weinberg [employer] HEMATOLOGY ORDERA BLES [facility] [place] [address] * (ABNORMAL) Hemogram (04/29/2021 10:22 AM EDT) White Blood Cell 5.1 4.0 - 9.5 x10(3)/[facility] Red Blood Cell 3.78(L) 4.58 - 5.54 x10(6)/[facility] Hemoglobin 12.4(L) 13.7 - 16.5 gm/dL [facility] Hematocrit 37.8(L) 40.5 - 48.5 % [facility] Mean Cell Volume 100.0(H) 82.9 - 93.1 fL [facility] Mean Cell Hemoglobin 32.8(H) 27.5 - 32.1 pg [facility] Mean Cell Hemoglobin Concentration 32.8 32.0 - 35.7 gm/dL [facility] Platelet 196 145 - 357 x10(3)/mc L [facility] RDW Standard Deviation 45.1(H) 36.0 - 45.0 [facility] RDW coefficient of variation 12.2 11.4 - 13.8 % [facility] Mean Platelet Volume 11.5 7.6 - 12.9 [facility] NRBC% auto 0.0 % [facility] NRBC Absolute 0.000 0.000 - 0.000 x10(3)/mc L [facility] Blood 04/29/2021 10:2 2 AM EDT 04/29/2021 10:29 AM EDT Narrative Resulting Agency Comment Spec In Lab MonalisaDg Weinberg [employer] HEMATOLOGY ORDERA BLES Performing Organization Address City/[facility]/ZIP Co de Phone Number [facility] [place] [address] * CRP, acute inflammation (04/29/2021 10:22 AM EDT) C-Reactive Protein <3.0 <=4.9 mg/L [facility] Blood 04/29/2021 10:2 2 AM EDT 04/29/2021 10:29 AM EDT Narrative Resulting Agency Comment Spec In Lab Marcelle Weinberg [employer] CHEMISTRY ORDERAB LES Performing Organization Address City/[facility]/ZIP Co de Phone Number [facility] [place] [address] * Sedimentation rate (04/29/2021 10:22 AM EDT) Sedimentation Rate Automated 32 3 - 46 mm/hr [facility] Comment: Effective November 02, 2019 new capillary photometric technology has resulted in a change in reference ranges. It is recommended that each ESR result be reviewed with its own age appropriate reference range. Blood 04/29/2021 10:2 2 AM EDT 04/29/2021 10:29 AM EDT Narrative Resulting Agency Comment Spec In Lab Marcelle Dunnjeovannyjania [employer] HEMATOLOGY ORDERA BLES [facility] [place] [address] * (ABNORMAL) Comprehensive metabolic panel (non-fasting) (04/29/2021 10:22 AM EDT) Glucose 130 65 - 199 mg/dL [facility] Comment:Diabetes: >=200 mg/d L plus symptoms Blood Urea Nitrogen 21(H) 10 - 20 mg/dL [facility] Creatinine 1.14 0.80 - 1.50 mg/dL [facility] Sodium 142 135 - 145 mmol/L [facility] Potassium 4.4 3.5 - 5.0 mmol/L [facility] Comment: Please note: ??Patients with WBC >100,000 may have falsely elevated Potassium levels. ??For accurate Potassium quantification in these patients send serum separator tube (gold top) for subsequent determinations. ??Contact the Clinical Chemistry Laboratory if there are any questions. Chloride 107 98 - 107 mmol/L [facility] Carbon Dioxide 25 22 - 31 mmol/L [facility] Anion Gap 10 5 - 15 mmol/L [facility] Calcium 10.0 8.5 - 10.5 mg/dL [facility] Protein, Total 8.0 6.1 - 8.0 gm/dL [facility] Albumin 4.4 3.2 - 5.2 gm/dL [facility] Aspartate Aminotransferase 14 0 - 39 unit/L [facility] Alanine Aminotransferase 16 0 - 55 unit/L [facility] Alkaline Phosphatase 68 40 - 130 unit/L [facility] Bilirubin, Total 0.3 0.2 - 1.3 mg/dL [facility] Est Glomerular Filtration Rate 64 >=60 mL/min/1. 73 m?? [facility] Comment: This patient? s estimated glomerular filtration rate (eGFR) is between 64 mL/min/1.73 m2 (patients with less muscle mass per kg body weight) and 74 mL/min/1.73 m2 (patients with more muscle mass [...] and symptoms in addition to eGFR. Blood 04/29/2021 10:2 2 AM EDT 04/29/2021 10:29 AM EDT Narrative Resulting Agency Comment Spec In Lab Marcelle Weinberg [employer] CHEMISTRY ORDERAB LES [facility] [place] [phone] documented in this encounter Visit Diagnoses Diagnosis Left sided colitis without complications Left sided ulcerative (chronic) colitis documented in this encounter Care Teams Account Manager Relief Relationship Specialty Start Date End Date Josue Wilkinson MD PCP - General General Internal Medicine 02/14/2107/26 documented as of this encounter
--- OUTSIDE RECORDS SUMMARY | 2024-06-29 16:04 | XMS_ITS | Encounter Summary ---
[place] [address] Care Team Providers Care Cryptographic Vulnerability Analyst Name Role Phone Maximilian Fall MD Primary Care Provider [phone] Reason for Visit * Reason Onset Date Comments Reminder Appointment 03/20/2020 Encounter Details Date Type Department Care Team (Late st Contact Info) Description 03/20/2020 Telephone [place] [address] Kinjal Durham CMA GASTROENTEROLOGY DEPT Reminder Appointment Social History Tobacco Use Types Packs/Day Years [...] encounter Miscellaneous Notes * Telephone Encounter - Kinjal Durham CMA - 03/20/2020 9:55 AM EDT Called patient to review medications and allergies for their upcoming gastroenterology Type of Appointment: Phone appointment. Reach Patient during MA Check: Yes Notes for the provider: Notes for the nurse: documented in this encounter Plan of Treatment Upcoming Encounters Date Type Department Care Team (Late st Contact Info) Description 08/15/2024 9:00 AM EDT Office [place] [address] Dion Barlow MD [facility] [place] [address] 09/01/2024 11:20 AM EDT Office Visit Dermatology at [facility] [address] [place] [address] Gómez Mercer MD [facility] DR EDDIE [place] [address] 09/21/2024 2:45 PM EDT Office Visit Pain and Spine Center at [place] [phone] Trung Hoyos MD [facility] [place] [address] documented as of this encounter Visit Diagnoses Not on filedocumented in this encounter Care Teams Cryptographic Vulnerability Analyst Relationship Specialty Start Date End Date Maximilian Fall MD [address] [place] [address] PCP - General 10/01/11 02/13/21 documented as of this encounter
--- OUTSIDE RECORDS SUMMARY | 2024-06-29 16:04 | XMS_ITS | Encounter Summary ---
Author Organization [facility] Address [facility] [place] [address] Care Team Providers Care Humid System Operator Name Role Phone Maximilian Fall MD Primary Care Provider [phone] Encounter Details Date Type Department Care Team (Latest Contact Info) Description 04/28/2019 3:07 PM EDT - 04/28/2019 6:06 PM EDT Hospital Encounter [place] [address] Iza Coates MD [facility] DR [place] [address] Discharge Disposition: Home Social History Tobacco Use [...] Sign Reading Time Taken Comments Blood Pressure 134/80 04/28/2019 5:45 PM EDT Pulse 88 04/28/2019 5:01 PM EDT Temperature 36.8 ??C (98.2 ??F) 04/28/2019 3:35 PM ED T Respiratory Rate 16 04/28/2019 5:45 PM EDT Oxygen Saturation 94% 04/28/2019 5:45 PM EDT Inhaled Oxygen Concentration - - Weight 113.4 kg (250 lb) 04/28/2019 3:35 PM EDT Height 193 cm (6' 4) 04/28/2019 3:35 PM EDT Body Mass Index 30.43 04/28/2019 3:35 PM EDT documented in this encounter Discharge Instructions * Attachments The following attachments cannot be sent through Care Everywhere. * EGD (Upper Endoscopy): Post-op (Nepali) documented in this encounter Medications at Time [...] as of this encounter H&P Notes * Iza Coates MD - 04/28/2019 4:28 PM EDT [...] needed for Wheezing. Use with spacer ??? BASAGLTAYLOR SCOTT U-100 INSULIN 100 unit/mL (3 mL) [...] sedation) Iza Coates MD Gastroenterology attending Pager [phone] documented in this encounter Plan of Treatment Upcoming Encounters Date Type Department Care Team (Late st Contact Info) Description 08/15/2024 9:00 AM EDT Office Visit [place] [address] Dion Barlow MD [facility] [place] [address] 09/01/2024 11:20 AM EDT Office Visit Dermatology at [facility] [address] [place] [address] Gómez Mercer MD [facility] DR EDDIE SANCHEZ-[place] [address] 09/21/2024 2:45 PM EDT Office Visit [facility] [place] [address] Trung Hoyos MD [facility] [place] [address] documented as of this encounter Procedures Procedure [...] PM EDT 04/28/2019 5:03 PM EDT Narrative [facility] - 04/28/2019 5:03 PM EDT Specimen requisition ordered. ??Separate Pathology report to follow Iza Coates MD PATHOLOGY/CYTOLOG Y ORDERABLES [facility] [place] [address] * Specimen to Pathology (04/28/2019 5:03 PM EDT) AP Specimen 04/28/2019 5:03 PM EDT 04/28/2019 5:03 PM EDT Narrative [facility] - 04/28/2019 5:03 PM EDT Specimen requisition ordered. ??Separate Pathology report to follow Iza Coates MD PATHOLOGY/CYTOLOG Y ORDERABLES [facility] [place] [address] * Surgical Pathology Report (04/28/2019 4:50 PM EDT) Final Diagnosis [id number] ? Location: 4T; EA10; A The signing pathologist has (i) examined the relevant preparation(s) for the specimen(s) and (ii) rendered or confirmed the diagnosis(es). . ?Surgical Pathology DIAGNOSIS A - Random duodenum, biopsy: Duodenal mucosa within normal limits, including preserved villous architecture. B - Fundic gland, polypectomy: Gastric fundic gland polyp. Electronically signed by: ??Joana Soler MD Verified: ??05/02/2019 ?Pathologist Performed at: ??-[facility] Dept. of Pathology, [place], [place] CLINICAL INFORMATION Specimen Submitted: A - [...] labeled B1. ??ejr 05/02/2019 4:02 PM EDT [facility] GI Biopsy 04/28/2019 4:50 PM EDT 04/28/2019 4:50 PM EDT GI Biopsy 04/28/2019 4:50 PM EDT 04/28/2019 4:50 PM EDT Iza Coates MD PATHOLOGY/CYTOLOG Y ORDERABLES Performing Organization Address [facility]/State/ZIP Co de Phone Number [facility] [place] [address] * UPPER GI ENDOSCOPY (04/28/2019 4:39 PM EDT) UPPER GI ENDOSCOPY [facility] Endoscopy Procedure Date: 04/28/2019 4:39 PM ? Patient Name: Brian Rodriguez ? N: [id number] ? Date of : 1950 ? Age: 68 ? Order #: [id number] ? Instrument Name: [id number] ? Procedure: ? Upper GI endoscopy Indications: ? Abnormal CT of the GI tract (duodenal ? thickening) Providers: ? Iza Coates MD, Nohemi Ball, ? RN, Jonathan Ko, Manager Operations Referring MD: ?Maximilian Fall MD Requesting Provider: [...] personally performed the entire procedure. ? ____ Iaz Coates MD 04/28/2019 4:57:28 PM Number of Addenda: 0 Note Initiated On: 04/28/2019 4:39 PM [facility] 04/28/2019 4:39 PM EDT Maximilian Fall MD GENERAL SURGICAL ORD ERABLES [facility] * POCT Glucose (04/28/2019 3:46 PM EDT) Glucose, POC 91 65 - 199 mg/dL [facility] Comment: Supplemental ranges: <140 mg/dL before meals <180 mg/dL all other times of the day Blood specimen (specimen) 04/28/2019 3:46 PM EDT 04/28/2019 3:46 PM EDT Iza Coates MD POINT OF CARE KISHOR T ORDERABLES [facility] [place] [address] documented in this encounter Visit Diagnoses Not on filedocumented in this encounter Active and Recently Administered Medications Times are shown in EDT. PRN Medication Order 04/26/2019 04/27/2019 04/28/2019 fentaNYL 50 mcg/mL multi-dose injection (CANCELED) ONCE PRN, Starting on Tresa 04/28/19 at 1639, Until Tresa 04/28/19 at 2006, Intra-Operative (Intra-Procedure), Routine 1639 (Given - Provid er: Nohemi Ball RN)1641 (Given - Provider: Noheim Ball RN)1644 (Given - Provider: Nohemi Ball RN) midazolam (PF) (VERSED) multi-dose injection (CANCELED) ONCE PRN, Starting on Tresa 04/28/19 at 1639, Until Tresa 04/28/19 at 2006, Intra-Operative (Intra-Procedure), Routine 1639 (Given - Provid er: Nohemi Ball RN)1641 (Given - Provider: Nohemi Ball, RN)1643 (Given - Provider: Nohemi Ball, RN)1645 (Given - Provider: Nohemi Ball, RN) documented in this encounter Care Teams Humid System Operator Relationship Specialty Start Date End Date Maximilian Fall MD [address] [place] [address] PCP - General 10/01/11 02/13/21 documented as of this encounter
--- OUTSIDE RECORDS SUMMARY | 2024-06-29 16:04 | XMS_ITS | Encounter Summary ---
Author Organization Formerly [facility] Lina [place] [address] Care Team Providers Care Data Entry Representative Name Role Phone Maximilian Fall MD Primary Care Provider [phone] Encounter Details Date Type Department Care Team (Latest Contact Info) Description 04/25/2019 10:00 AM EDT Office [place] [address] Marcelle Weinberg, TELETYPEWRITER INSTALLER [facility] [place] [address] Left sided colitis without complications Social History [...] Sign Reading Time Taken Comments Blood Pressure 139/90 04/25/2019 10:09 AM EDT Pulse 91 04/25/2019 10:09 AM EDT Temperature - - Respiratory Rate - - Oxygen Saturation 96% 04/25/2019 10: 09 AM EDT Inhaled Oxygen Concentration - - Weight 113.8 kg (250 lb 12.8 oz) 2018 10:09 AM EDT Height 193 cm (6' 4) 04/25/2019 10:09 AM EDT Body Mass Index 30.53 04/25/2019 10:09 AM EDT documented in this encounter Patient Instructions * Patient Instructions* Marcelle Weinberg APRN - 04/25/2019 10:00 AM EDT We discussed the following recommendations that were printed out for the patient: # please get labs today # Continue sulfasalazine 4 tabs twice daily # Continue folic acid 1 tab daily # Continue Omeprazole 20 mg once daily #?? Restart Uceris foam: 2mg once every night x 4 weeks; then 2mg every other night until symptoms better then stop. # Will schedule upper endoscopy # will get CD of your recent CT scan and have it re read here [place] [facility] # Colonoscopy again spring 2020. # Avoid non-steroidal anti-inflammatory medications (NSAIDs) including but not limited to Advil, ibuprofen, Motrin, Aleve, Excedrin, naproxen, Mobic, indomethacin, and aspirin. Acetaminophen (Tylenol) is okay for aches and pains. # Please follow up with your PCP regarding spermatic cord changes seen on your CT scan and recommend scrotal ultrasound ? documented in this encounter Progress Notes * Marcelle Weinberg APRN - 04/25/2019 10:00 AM EDT Problem List? Diagnosis? Ulcerative colitis ? Overview Note:? Colonoscopy 04/08/10 (Dr. Gomes [facility]) - inflammation only within the rectum and sigmoid; extent of the exam was to the hepatic flexure; biopsies proximal to the sigmoid nl ?? Repeat exam 11/27/11 ([facility] mildly active colitis in the sigmoid colon [...] reflux disease) ? Hydrocele ? Asthma ? LAST VISIT: 10/2018 INTERVAL HISTORY: Mr. Rodriguez returns for f/u. He is on Sulfasalazine 4 tabs BID and folic acid once daily. As far as his UC, he was doing well while on Uceris foam enema ( restarted back on 02/22/19). However, since he ran out of med 2 weeks ago, started having recurrent diarrheal sxs and cramps. Having bm multiple times per day with urgency and has had episodes of not making it to the bathroomon time and had accidents. No bleeding in general except yesterday passed some blood x1 only. Today feels better. But also eating less so he could control his diarrhea. He has crampy abdominal pain starts out over LLQ then radiates across lower abdomen. No pain if he has no diarrhea. No upper abdominal pain. No GERD/ heartburn sxs as long as he takes his Omeprazole daily. No dysphagia nor odynophagia. No n/v No f/c He also brought a copy of his CT scan ( 03/07/19) that was done when he presented to his PCP with LLQ abdominal pain and referred him to see his surgeon ( who performed his left inguinal hernia repairback end of September/early Oct 2018). He was told to bring a copy of this CT to us for review. He did not get antibiotic after CT but was given a steroid shot on his LLQ abdominal area by his surgeon per pt reports. Overall his LLQ pain is slowly improving, comes and goes and not as bad. He is eating. Weight stable. ? REVIEW OF SYSTEMS: as above, the rests negative. ? Past??Medical??History Past Medical History: Diagnosis Date ??? Asthma 10/01/2011 ??? Diabetes mellitus 10/01/2011 ??? GERD (gastroesophageal reflux disease) 10/01/2011 ??? Hearing loss 10/01/2011 ??? Hydrocele 10/01/2011 ??? Ulcerative colitis 10/01/2011 ? Past??Surgical??History Past Surgical History: Procedure Laterality Date ??? PRO COLONOSCOPY, BIOPSY N/A 02/12/2017 ?? COLONOSCOPY FLEXIBLE, WITH BX (WRVU 3.66) performed by Dion Osullivan MD at [facility] ??? PRO COLONOSCOPY, DIAGNOSTIC ?? 11/27/2011 ?? COLONOSCOPY, DIAGNOSTIC performed by Dion OSULLIVAN at [facility] ??? PRO COLONOSCOPY, DIAGNOSTIC ?? 07/13/2014 ?? COLONOSCOPY, DIAGNOSTIC performed by Dion Osullivan MD at [facility] ??? PRO SIGMOIDOSCOPY, DIAGNOSTIC ?? 03/16/2012 ?? FLEXIBLE SIGMOIDOSCOPY performed by YUDI MALLOY at [facility] ??? UPPER GI ENDOSCOPY, EXAM ?? 10/01/2012 ?? UPPER GI ENDOSCOPY performed by Dion OSULLIVAN at [facility] ? Social History ?? Socioeconomic History ??? Marital status: ? Spouse name: Not on file ??? Number of children: Not on file ??? Years of education: Not on file ??? Highest education level: Not on file Social Needs ??? Financial resource strain: Not on file ??? Food insecurity - worry: Not on file ??? Food insecurity - inability: Not on file ??? Transportation needs - medical: Not on file ??? Transportation needs - non-medical: Not on file Occupational History ??? Not on file Tobacco Use ??? Smoking status: Former Smoker ? Packs/day: 4.00 ? Years: 30.00 ? Pack years: 120.00 ? Types: Cigarettes ? Last attempt to quit: 10/01/1992 ? Years since quittin.1 ??? Smokeless tobacco: Never Used Substance and Sexual Activity ??? Alcohol use: No ??? Drug use: No ??? Sexual activity: Not on file Other Topics Concern ??? Not on file Social History Narrative ??? Not on file ? Family??History No family history on file. ? Vitals: 04/25/19 1009 BP: 139/90 Pulse: 91 SpO2: 96% Weight: 113.8 kg (250 lb 12.8 oz) Height: 193 cm (6' 4) ?? Physical Exam Constitutional: He appears well-developed and well-nourished. No distress. Cardiovascular: Normal rate and regular rhythm. Pulmonary/Chest: Effort normal and breath sounds normal. No respiratory distress. Abdominal: Soft. Bowel sounds are normal. He exhibits no mass. Distention: obese abdomen. There is tenderness (mild tenderness on LLQ on palpation. Otherwise soft, non-tender.). There is no rebound and no guarding. Neurological: He is alert. ? RECENT TESTINGS: ?? Ref. Range 11/02/2018 14:35 02/22/2019 15:57 02/22/2019 16:23 WBC Latest Ref Range: 4.0 - 9.5 x10(3)/mcL 6.6 RBC Latest Ref Range: 4.58 - 5.54 x10(6)/mcL 4.08 (L) Hemoglobin Latest Ref Range: 13.7 - 16.5 gm/dL 13.1 (L) Hematocrit Latest Ref Range: 40.5 - 48.5 % 40.0 (L) MCV Latest Ref Range: 82.9 - 93.1 fL 98.0 (H) MCH Latest Ref Range: 27.5 - 32.1 pg 32.1 MCHC Latest Ref Range: 32.0 - 35.7 gm/dL 32.8 RDWSD Latest Ref Range: 36.0 - 45.0 fL 44.3 RDWCV Latest Ref Range: 11.4 - 13.8 % 12.3 Platelets Latest Ref Range: 145 - 357 x10(3)/mcL 236 MPV Latest Ref Range: 7.6 - 12.9 fL 10.6 nRBC % Auto Latest Units: % 0.0 nRBC Abs Auto Latest Ref Range: 0.000 - 0.000 x10(3)/mcL 0.000 Neutr Abs (ANC) Latest Ref Range: 1.70 - 6.10 x10(3)/mcL 4.08 Neutrophils % Latest Units: % 61.6 Immature Gran % Latest Units: % 0.60 Lymphocytes % Latest Units: % 27.2 Monocytes % Latest Units: % 6.9 Eosinophils % Latest Units: % 2.9 Basophils % Latest Units: % 0.8 Sherry Gran Abs Latest Ref Range: 0.00 - 0.04 x10(3)/mcL 0.04 Lymphocytes Abs Latest Ref Range: 0.9 - 3.2 x10(3)/mcL 1.8 Monocyte Abs Latest Ref Range: 0.3 - 0.9 x10(3)/mcL 0.5 Eosinophils Abs Latest Ref Range: 0.0 - 0.4 x10(3)/mcL 0.2 Basophils Abs Latest Ref Range: 0.0 - 0.1 x10(3)/mcL 0.0 Sed Rate Latest Ref Range: 0 - 15 mm/hr 27 (H) Sodium Latest Ref Range: 135 - 145 mmol/L 140 Potassium Latest Ref Range: 3.5 - 5.0 mmol/L 4.3 Chloride Latest Ref Range: 98 - 107 mmol/L 103 CO2 Latest Ref Range: 22 - 31 mmol/L 26 Anion Gap Latest Ref Range: 5 - 15 mmol/L 11 BUN Latest Ref Range: 10 - 20 mg/dL 15 Creatinine Latest Ref Range: 0.80 - 1.50 mg/dL 1.03 eGFR Latest Ref Range: >=60 mL/min/1.73 m?? 73 eGFR Latest Ref Range: >=60 mL/min/1.73 m?? 85 Glucose Lvl Latest Ref Range: 65 - 199 mg/dL 87 Calcium Latest Ref Range: 8.5 - 10.5 mg/dL 9.7 Total Protein Latest Ref Range: 6.1 - 8.0 gm/dL 8.1 (H) Albumin Latest Ref Range: 3.2 - 5.2 gm/dL 4.0 Total Bilirubin Latest Ref Range: 0.2 - 1.3 mg/dL 0.4 Alk Phos Latest Ref Range: 40 - 120 unit/L 73 AST Latest Ref Range: 0 - 39 unit/L 12 ALT Latest Ref Range: 0 - 55 unit/L 14 CRP Latest Ref Range: <=4.9 mg/L 5.0 (H) Surgical Pathology Report Unknown [id number] ... COLONOSCOPY Unknown [facility]... COLONOSCOPY COLONOSCOPY Collected: 02/22/19 [id number] Resulting lab: PROVATION Value: [facility] Endoscopy Procedure Date: 02/22/2019 3:57 PM ? Patient Name: Brian Rodriguez ? Date of : 1950 ? Age: 68 ? Order #: [id number] ? Instrument Name: [id number] ? Procedure: ? Colonoscopy Indications: ? High risk colon cancer surveillance: ?Ulcerative colitis Patient Profile: ? This is a 68 year old male. This ?patient has left-sided ulcerative ?colitis, is taking sulfasalazine and ?cortenemas and is experiencing mild ?symptoms. Providers: ? Davina Osullivan MD, Alannah Singletary, ?RN, Anita Davis Referring : ?Maximilian Fall MD Medicines: ? Midazolam 3 mg IV, Fentanyl 150 ?micrograms IV Complications: ? No immediate complications. Procedure: ? Pre-Anesthesia Assessment: ?- Prior to the procedure, a History ?and Physical was performed, and ?patient medications and allergies ?were reviewed. The patient is ?competent. The risks and benefits of ?the procedure and the sedation ?options and risks were discussed with ?the patient. All questions were ?answered and informed consent was ?obtained. Patient identification and ?proposed procedure were verified by ?the physician in the pre-procedure ?area in the endoscopy suite. Mental ?Status Examination: alert and ?oriented. Airway Examination: normal ?oropharyngeal airway and neck ?mobility. Respiratory Examination: ?clear to auscultation. CV ?Examination: normal. ASA Grade ?Assessment: II - A patient with mild ?systemic disease. After reviewing the ?risks and benefits, the patient was ?deemed in satisfactory condition to ?undergo the procedure. The anesthesia ?plan was to use moderate sedation / ?analgesia (conscious sedation). ?Immediately prior to administration ?of medications, the patient was ?re-assessed for adequacy to receive ?sedatives. The heart rate, ?respiratory rate, oxygen saturations, ?blood pressure, adequacy of pulmonary ?ventilation, and response to care ?were monitored throughout the ?procedure. The physical status of the ?patient was re-assessed after the ?procedure. ?The procedure, indications, benefits, ?risks and alternatives were explained ?to the patient. Specifically ?discussed were potential ?complications including, but not ?limited to, bleeding, perforation, ?infection, missing a cancer, and ?adverse medication reactions. The ?patient was placed in the left ? lateral decubitus position, and a ?digital rectal exam was performed. ?The Colonoscope was inserted in the ?anus and under direct visualization, ?advanced to 3 cm into the ileum. ?Careful inspection was made as the ?colonoscope was withdrawn. The ?colonoscopy was performed without ?difficulty. The patient tolerated the ?procedure well. The quality of the ?bowel preparation was evaluated using ?the BBPS ([employer]co Bowel Preparation ?Scale) with scores of: Right Colon = ?1 (portion of mucosa seen, but other ?areas not well seen due to staining, ?residual stool and/or opaque liquid), ?Transverse Colon = 2 (minor amount of ?residual staining, small fragments of ?stool and/or opaque liquid, but ?mucosa seen well) and Left Colon = 2 ?(minor amount of residual staining, ?small fragments of stool and/or ?opaque liquid, but mucosa seen well). ?The total BBPS score equals 5. The ?quality of the bowel preparation was ?fair. Scope withdrawal time was 25 ?minutes. ? Findings: ?The perianal and digital rectal examinations were ?normal. ?The terminal ileum appeared normal but was obscured ?by retained roughage. Similarly, the base of the ?cecum could not be visualized due to retained fibrous ?vegetable matter that could not be irrigated or ?aspirated. ?Inflammation characterized by erythema and ?granularity was found in a continuous and ?circumferential pattern from the rectum to the ?sigmoid colon 28 cm from the anal verge. This was ?mild in severity. Eight biopsies were obtained with ?cold forceps for surveillance randomly each from the ?right colon, transverse, descending and rectosigmoid ?colon. ?A 2 mm polyp was found in the mid ascending colon. ?The polyp was sessile. The polyp was removed with a ?cold biopsy forceps. Margins were well-defined. ?Resection and retrieval were complete. ?A 3 mm polyp was found in the proximal transverse ?colon. The polyp was sessile. The polyp was removed ?with a cold snare. Margins were well-defined. ?Resection and retrieval were complete. ?A 5 mm polyp was found in the mid descending colon at ?50 cm proximal to the anus. The polyp was sessile, ?and the margins were not clearly demarcated. The ?polyp was removed with a cold snare. Resection and ?retrieval were complete. Biopsies were taken with a ?cold forceps for histology from the margins of the ?polypectomy site and sent separately. Lastly, an area ?just distal to the polypectomy site along the same ?wall was tattooed with a single injection of 2 mL of ?Spot (carbon black). ?Multiple small and large-mouthed diverticula were ?found in the sigmoid colon. ? Moderate Sedation: ?I was present during the intraservice time as ?documented by the sedation RN. Impression: ?- Preparation of the colon was fair. ?The cecum could not be well ?visualized. ?- The examined portion of the ileum ?was normal. ?- Proctosigmoid ulcerative colitis. ?Inflammation was found from the ?rectum to the sigmoid colon. This was ?mild in severity. ?- One 2 mm polyp in the mid ascending ?colon, removed with a cold biopsy ?forceps. Likely sporadic. Resected ?and retrieved. ?- One 3 mm polyp in the proximal ?transverse colon, removed with a cold ?snare. Likely sporadic. Resected and ?retrieved. ?- One 5 mm polyp in the mid ?descending colon at 50 cm proximal to ?the anus, removed with a cold snare. ?Resected and retrieved. Margins ?biopsied and the site was tattooed. ?- Eight biopsies were obtained each ?from the right colon, transverse, ?descending and rectosigmoid colon. ?- Moderate sigmoid diverticulosis. Recommendation: ?- Await pathology results. ?- Continue sulfasalazine. ?- Resume cortenemas every other night. ?- Follow-up in IBD Clinic. ? Attending Participation: ?I personally performed the entire procedure. ?I was present during the intraservice time as ?documented by the sedation RN. ? L. Karthik Osullivan MD 02/22/2019 5:11:37 PM Number of Addenda: 0 ? Surgical Pathology DIAGNOSIS A - Right colon, biopsy: [...] - Rectosigmoid colon, biopsy: Moderately active chronic colitis/proctitis. No dysplasia is seen. CR-PX Electronically signed by: ??Garrett HARVEY, Ana Verified: ??02/26/2019 ?Pathologist Performed at: ??-[facility] Dept. [place]ology, [place], [place] 03/07/19 CT abd/pelvis ( [facility]): Non specific findings in region of previous left herniorrhaphy, no abscess identified. Increase vascular flow may be present in left spermatic cord, scrotal ultrasound may be considered fr further evaluation. Question mild chronic sigmoid diverticulitis Question duodenitis, duodena neoplastic process not entirely excluded on the basis of this examination. Endoscopy suggested for further evaluation. ASSESSMENT AND PLAN:?? Ulcerative colitis. ??It has been patchy (likely due to topical therapies), mild, and primarily left-sided. ??He had a recent f/u colonoscopy (02/22/19) that showed procto-sigmoiditis. He has been maintained on Sulfasalazine 8 tabs daily and just finished his Uceris foam enema 2 weeks ago. He was doing well while on Uceris foam enema but had recurrent diarrhea and crampy pain once he came off. We would restart this again. He had a CT abd/pelvis done at [facility] (03/07/19)when he presented to his PCP with LLQ. Found ? Mild chronic sigmoid diverticulitis. ? 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 We will plan on having this re-read here. He would need a f/u EGD given ? duodenitis/ neoplastic process findings as above. Lastly, he would need to f/u with his PCP regarding changes seen on his left spermatic cord. ? We discussed the following recommendations that were printed out for the patient: # please get labs today # Continue sulfasalazine 4 tabs twice daily # Continue folic acid 1 tab daily # Continue Omeprazole 20 mg once daily #?? Restart Uceris foam: 2mg once every night x 4 weeks; then 2mg every other night until symptoms better then stop. # Will schedule upper endoscopy # will get CD of your recent CT scan and have it re read here at [facility] # Colonoscopy again spring 2020. # Avoid non-steroidal anti-inflammatory medications (NSAIDs) including but not limited to Advil, ibuprofen, Motrin, Aleve, Excedrin, naproxen, Mobic, indomethacin, and aspirin. Acetaminophen (Tylenol) is okay for aches and pains. # Please follow up with your PCP regarding spermatic cord changes seen on your CT scan and recommend scrotal ultrasound ? F/U with Dr. Osullivan at next available opening. documented in this encounter Plan of Treatment Upcoming Encounters Date Type Department Care Team (Late st Contact Info) Description 08/15/2024 9:00 AM EDT Office [place] [address] Dion Osullivan MD [facility] [place] [address] 09/01/2024 11:20 AM EDT Office Visit Dermatology at [address] [place] [address] Gómez Mercer MD [facility] [address] [place] [address] 09/21/2024 2:45 PM EDT Office Visit Pain and Spine Center at [facility] [address] [place] [id number] Trung Hoyos MD [facility] [place] [address] Scheduled Orders Name Type Priority Associated Diagnoses Orde r Schedule UPPER GI ENDOSCOPY Procedures Routine Left sided colitis without complications Ordered: 04/25/2019 documented as of this encounter Procedures Procedure Name Priority Date/Time Associated Diagnosis Comments CRP, ACUTE INFLAMMATION Routine 04/25/2019 12:00 PM EDT Left sided colitis without complications HEMOGRAM Routine 04/25/2019 12:00 PM EDT Left sided colitis without complications DIFFERENTIAL, AUTOMATED Routine 04/25/2019 12:00 PM EDT Left sided colitis without complications SEDIMENTATION RATE Routine 04/25/2019 12 :00 PM EDT Left sided colitis without complications CBC (WITH DIFF) Routine 04/25/2019 12:00 PM EDT Left sided colitis without complications COMPREHENSIVE METABOLIC PANEL Routine 04/25/2019 12:00 PM EDT Left sided colitis without complications documented in this encounter Results * Differential, Automated (04/25/2019 12:00 PM EDT) Neutrophil % 66.3 % [facility] Neutrophil Absolute 4.90 1.70 - 6.10 x10(3)/[facility] Lymph % 24.0 % [facility] Lymphocytes Abs 1.8 0.9 - 3.2 x10(3)/[facility] Monocyte % 6.8 % [facility] Monocyte Abs 0.5 0.3 - 0.9 x10(3)/[facility] Eos % 2.0 % [facility] Eosinophils Abs 0.2 0.0 - 0.4 x10(3)/[facility] Basophil % 0.5 % [facility] Baso Absolute 0.0 0.0 - 0.1 x10(3)/[facility] Immature Gran % 0.40 % [facility] Comment: Immature granulocytes(IG's)percentage and absolute count will include metamyelocytes, myelocytes, and promyelocytes. Blood smears from CBCs yielding IG's will be scanned manually for concordance. If this scan disagrees with the automated IG or if promyelocytes are noted, a manual differential will be performed. Immature Gran Absolute 0.03 0.00 - 0.04 x10(3)/[facility] Blood specimen (specimen) 04/25/2019 12:00 PM EDT 04/25/2019 12:03 PM EDT Narrative Resulting Agency Comment Spec In Lab Marcelle Weinberg APRN HEMATOLOGY [facility] [place] [address] * (ABNORMAL) Hemogram (04/25/2019 12:00 PM EDT) White Blood Cell 7.4 4.0 - 9.5 x10(3)/ L [facility] Red Blood Cell 4.22(L) 4.58 - 5.54 x10(6)/mc L [facility] Hemoglobin 13.7 13.7 - 16.5 gm/dL [facility] Hematocrit 41.9 40.5 - 48.5 % [facility] Mean Cell Volume 99.3(H) 82.9 - 93.1 fL [facility] Mean Cell Hemoglobin 32.5(H) 27.5 - 32.1 pg [facility] Mean Cell Hemoglobin Concentration 32.7 32.0 - 35.7 gm/dL [facility] Platelet 239 145 - 357 x10(3)/mc L [facility] RDW Standard Deviation 45.9(H) 36.0 - 45.0 [facility] RDW coefficient of variation 12.6 11.4 - 13.8 % [facility] Mean Platelet Volume 11.0 7.6 - 12.9 [facility] NRBC% auto 0.0 % [facility] NRBC Absolute 0.000 0.000 - 0.000 x10(3)/mc L [facility] Blood specimen (specimen) 04/25/2019 12:00 PM EDT 04/25/2019 12:03 PM EDT Narrative Resulting Agency Comment Spec In Lab Marcelle Weinberg TELETYPEWRITER INSTALLER HEMATOLOGY [facility] [place] [address] * CRP, acute inflammation (04/25/2019 12:00 PM EDT) C-Reactive Protein 2.5 <=4.9 mg/L [facility] Blood specimen (specimen) 04/25/2019 12:00 PM EDT 04/25/2019 12:03 PM EDT Narrative Resulting Agency Comment Spec In Lab Marcelle Weinberg TELETYPEWRITER INSTALLER CHEMISTRY ORDERAB LES Performing Organization Address City/[facility]/ZIP Co de Phone Number [facility] [place] [address] * (ABNORMAL) Sedimentation rate (04/25/2019 12:00 PM EDT) Sedimentation Rate Automated 28(H) 0 - 15 mm/hr [facility] Blood specimen (specimen) 04/25/2019 12:00 PM EDT 04/25/2019 12:03 PM EDT Narrative Resulting Agency Comment Spec In Lab Marcelle Loov TELETYPEWRITER INSTALLER HEMATOLOGY [facility] [place] [address] * (ABNORMAL) Comprehensive metabolic panel (non-fasting) (04/25/2019 12:00 PM EDT) Glucose 84 65 - 199 mg/dL [facility] Comment:Diabetes: >=200 mg/d L plus symptoms Blood Urea Nitrogen 15 10 - 20 mg/dL [facility] Creatinine 1.14 0.80 - 1.50 mg/dL [facility] Sodium 140 135 - 145 mmol/L [facility] Potassium 4.8 3.5 - 5.0 mmol/L [facility] Comment: Please note: ??Patients with WBC >100,000 may have falsely elevated Potassium levels. ??For accurate Potassium quantification in these patients send serum separator tube (gold top) for subsequent determinations. ??Contact the Clinical Chemistry Laboratory if there are any questions. Chloride 104 98 - 107 mmol/L [facility] Carbon Dioxide 25 22 - 31 mmol/L [facility] Anion Gap 11 5 - 15 mmol/L [facility] Calcium 9.8 8.5 - 10.5 mg/dL [facility] Protein, Total 8.5(H) 6.1 - 8.0 gm/dL [facility] Albumin 4.4 3.2 - 5.2 gm/dL [facility] Aspartate Aminotransferase 12 0 - 39 unit/L [facility] Alanine Aminotransferase 14 0 - 55 unit/L [facility] Alkaline Phosphatase 70 40 - 120 unit/L [facility] Bilirubin, Total 0.4 0.2 - 1.3 mg/dL [facility] Est Glomerular Filtration Rate 65 >=60 mL/min/1. 73 m?? [facility] LABORATORY Comment: The eGFR was calculated using the CKD-EPI equation. As with all creatinine based estimates of kidney function, eGFR values calculated with the CKD-EPI equation are not accurate in patients with acute kidney failure, extremes of body mass or the acutely ill. [email or web address] eGFR 75 >=60 mL/min/1. 73 m?? [facility] Comment: The eGFR was calculated using the CKD-EPI equation. As with all creatinine based estimates of kidney function, eGFR values calculated with the CKD-EPI equation are not accurate in patients with acute kidney failure, extremes of body mass or the acutely ill. [email or web address] Blood specimen (specimen) 04/25/2019 12:00 PM EDT 04/25/2019 12:03 PM EDT Narrative Resulting Agency Comment Spec In Lab Marcelle Loov TELETYPEWRITER INSTALLER CHEMISTRY ORDERAB LES Performing Organization Address City/State/[facility] Co de Phone Number [facility] [place] [address] documented in this encounter Visit Diagnoses Diagnosis Left sided colitis without complications Left sided ulcerative (chronic) colitis documented in this encounter Care Teams Data Entry Representative Relationship Specialty Start Date End Date Maximilian Fall MD [address] [place] [address] PCP - General 10/01/11 02/13/21 documented as of this encounter
--- OUTSIDE RECORDS SUMMARY | 2024-06-29 16:04 | XMS_ITS | Encounter Summary ---
Author Organization [facility] [place] [address] Care Team Providers Care Foam Rubber Molder Name Role Phone Maximilian Fall MD Primary Care Provider [phone] Encounter Details Date Type Department Care Team (Late st Contact Info) Description 03/07/2019 Ancillary Procedure [place] [phone] Dion Barlow MD [facility] [place] [address] Social History Tobacco Use Types Packs/Day Years [...] 9:00 AM EDT Office [place] [phone] Dion Barlow MD [facility] [place] [address] 09/01/2024 11:20 AM EDT Office Visit Dermatology at [address] [place] [address] Gómez Mercer MD [facility] DR EDDIE [place] [address] 09/21/2024 2:45 PM EDT Office Visit Pain and Spine Center at [facility] [place] [phone] Trung Hoyos MD [facility] [address] documented as of this encounter Procedures Procedure Name Priority Date/Time Associated Diagnosis Comments FILM LIBRARY STORAGE ONLY CT ABDOMEN AND PELVIS Routine 03/07/2019 12:00 AM EDT documented in this encounter Results * Film Library- Storage Only CT Abdomen & Pelvis (03/07/2019 12:00 AM EDT) Narrative [facility] - 04/27/2019 3:15 AM EDT This exam is auto-finalizing. It's purpose is for storage only. L Karthik Barlow MD IMG FILM LIBRARY ORD ERABLES [place], [place] documented in this encounter Visit Diagnoses Not on filedocumented in this encounter Care Teams Foam Rubber Molder Relationship Specialty Start Date End Date Maximilian Fall MD [address] [place] [address] PCP - General 10/01/11 02/13/21 documented as of this encounter
--- OUTSIDE RECORDS SUMMARY | 2024-06-29 16:04 | XMS_ITS | Encounter Summary ---
Author Organization [facility] Address [facility] [place] [address] Care Team Providers Care Administrative Asst Name Role Phone Deacon Watters APRN Primary Care Provider [phone] Encounter Details Date Type Department Care Team (Late st Contact Info) Description 02/17/2022 9:30 AM EDT Office [place] [phone] Marcelle Weinberg APRN [facility] [place] [address] Other ulcerative colitis with rectal bleeding Social [...] Sign Reading Time Taken Comments Blood Pressure 162/75 02/17/2022 9:29 AM EDT Pulse 62 02/17/2022 9:29 AM EDT Temperature - - Respiratory Rate - - Oxygen Saturation - - Inhaled Oxygen Concentration - - Weight 116.1 kg (255 lb 14.4 oz) 02/17/2022 9:29 AM EDT Height 193 cm (6' 4) 02/17/2022 9:29 AM EDT Body Mass Index 31.15 02/17/2022 9:29 AM EDT documented in this encounter Patient Instructions * Patient Instructions* Marcelle Weinberg APRN - 02/17/2022 9:57 AM EDT RECOMMENDATIONS: - Continue Sulfasalazine 3 tabs twice daily - Increase Uceris foam once every night x2 weeks then once every other night - Labs today: CBC, CMP, ESR, CRP - Stool studies today - Continue Prilosec 40 mg once daily - Due for colonoscopy 02/2022. - Chew food carefully. For persistent symptoms, consider manometry. - Avoid non-steroidal anti-inflammatory medications (NSAIDs) including but not limited to Advil, ibuprofen, Motrin, Aleve, Excedrin, naproxen, Mobic, indomethacin, and aspirin. Acetaminophen (Tylenol) is okay for aches and pains. documented in this encounter Progress Notes * Marcelle Weinberg APRN - 02/17/2022 9:30 AM EDT Primary care provider: Unknown Other providers: Dr. Barlow Reason for visit:Ulcerative [...] Overview Note: ? Colonoscopy 04/08/10 (Dr. Gomes [facility]) - inflammation only within the rectum and sigmoid; extent of the exam was to the hepatic flexure; biopsies proximal to the sigmoid nl ?? Repeat exam 11/27/11 ([facility] mildly active colitis in the sigmoid colon [...] Asthma ? Interval History: Last visit with Dr. Barlow 08/2021 On Sulfasalazine 3 tabs bid and Uceris foam three days per week Bowels varies. Having good days and bad days. On average, having 4 bad days per month. On bad days, will go 8-12x/day of loose stools. This morning , already went 4x, loose and little blood. This is associated with LLQ pain. On good days,will go once every day, normal stool. No bleeding. He is eating. However, can not tolerate beef/hamburger, caused abdominal pain and diarrhea. It alsotends to get stuck in his throat. Otherwise he could tolerate most foods. Weight stable No f/c No n/v No heartburn sxs as long as takes Prilosec once daily. He avoids all NSAID's and takes only Tylenol for aches/pains. Review of systems as in the HPI, the rest of the review of systems were negative. Past Medical History, Social History and Family History is unchanged. Medications Outpatient Encounter Medications as of 02/17/2022 Medication Sig Dispense Refill ??? budesonide (Uceris) 2 mg/actuation Foam Place 2 mg rectally See Admin Instructions. 2mg rectally nightly for 2 weeks, then continue every other night (four nights per week) 133.6 g 5 ??? sulfaSALAzine (Azulfidine) 500 mg Tablet Take [...] rectally nightly. (Patient not taking: Reported on 08/26/2021) 90 g 3 ??? propranolol (INDERAL [place]) [...] facility-administered encounter medications on file as of 02/17/2022. Allergies/Adverse reactions Erythromycin base and Tetracyclines Physical Examination Patient appears well Wt Readings from Last 3 Encounters: 08/26/21 114.8 kg (253 lb) 04/29/21 116.2 kg (256 lb 3.2 oz) 02/26/21 114.8 kg (253 lb) Vitals: 02/17/22 0929 BP: 162/75 BP Location (NBP): Right arm Patient Position: Sitting BP Cuff Sizes: Large Adult (32-43 cm) Pulse: 62 Weight: 116.1 kg (255 lb 14.4 oz) Height: 193 cm (6' 4) Heart: regular Resp: CTA Abd: normal BS, soft, mild tenderness on LLQ on palpation, no masses, no hepatomegaly, no splenomegaly Recent labs No visits with results within 3 Month(s) from this visit. Latest known visit with results is: Laboratory Appointment on 05/31/2021 Component Date Value [...] - 9.5 x10(3)/mcL Final ??? RBC 05/31/2021 3.85 (A) 4.58 - 5.54 x10(6)/mcL Final ??? Hemoglobin 05/31/2021 12.6 (A) 13.7 - 16.5 gm/dL Final ??? Hematocrit 05/31/2021 38.4 (A) 40.5 - 48.5 % Final ??? MCV 05/31/2021 99.7 (A) 82.9 - 93.1 fL Final ??? MCH 05/31/2021 32.7 (A) 27.5 - 32.1 pg Final ??? MCHC 05/31/2021 32.8 32.0 - 35.7 gm/dL Final ??? Platelets 05/31/2021 215 145 - 357 x10(3)/mcL Final ??? RDWSD 05/31/2021 45.1 (A) 36.0 - 45.0 fL Final ??? [...] 05/31/2021 0.03 0.00 - 0.04 x10(3)/mcL Final Recent endoscopic procedures 06/28/21 EGD ( [facility]): Pre op Dx; Dysphagia Post op DX: [...] abnormalities. Recent relevant imaging None ?? Assessment/Plan: ??Rodriguez??is a 71 y.o.??patient with ulcerative colitis. ??On Sulfasalazine 3 tabs BID, and Uceris foam once every night. Has been having good days and bad days. Today, he is having more diarrhealsymptoms. This is likely start of flare of his UC. No GERD symptoms as long as he takes his Prilosec. Intermittent dysphagia to solid( mostly beef). Suspected potential dysmotility. May need manometry in the future if persistent or gets worse. He will call if symptoms worsen or become more frequent. ?? I recommend the following: - Continue Sulfasalazine 3 tabs twice daily - Increase Uceris foam once every night x2 weeks then once every other night - Labs today: CBC, CMP, ESR, CRP - Stool studies today - Continue Prilosec 40 mg once daily - Due for colonoscopy 02/2022. - Chew food carefully. For persistent symptoms, consider manometry. - Avoid non-steroidal anti-inflammatory medications (NSAIDs) including but not limited to Advil, ibuprofen, Motrin, Aleve, Excedrin, naproxen, Mobic, indomethacin, and aspirin. Acetaminophen (Tylenol) is okay for aches and pains. ?? F/U with Dr. Barlow at next available opening. 25 minutes of this 30 minutes appointment were spent in direct counseling regarding treatment of IBD. Please contact me if there are any further questions regarding the care of this patient. Shan Weinberg APRN [facility] Section of Gastroenterology [place] [address] documented in this encounter Plan of Treatment Upcoming Encounters Date Type Department Care Team (Late st Contact Info) Description 08/15/2024 9:00 AM EDT Office [place] [address] Dion Barlow MD [facility] [address] [place] [phone] 09/01/2024 11:20 AM EDT Office Visit Dermatology at [facility] [address] [address] Gómez Mercer MD [facility] DR EDDIE [place] [address] 09/21/2024 2:45 PM EDT Office Visit Pain and Spine Center at [facility] [place] [address] Trung Hoyos MD [facility] [place] [address] Scheduled Orders Name Type Priority Associated Diagnoses Orde r Schedule ENDOSCOPY CASE REQUEST: COLONOSCOPY, DIAGNOSTIC Procedures Routine Other ulcerative colitis with rectal bleeding Ordered: 02/17/2022 documented as of this encounter Procedures Procedure Name Priority Date/Time Associated Diagnosis Comments HC VENIPUNCTURE Routine 02/17/2022 10:40 AM EDT Other ulcerative colitis with rectal bleeding HEMOGRAM Routine 02/17/2022 10:40 AM EDT Other ulcerative colitis with rectal bleeding DIFFERENTIAL, AUTOMATED Routine 02/17/2022 10:40 AM EDT Other ulcerative colitis with rectal bleeding HC ESR-SEDIMENTATION RATE, BLOOD Routine 02/17/2022 10:40 AM EDT Other ulcerative colitis with rectal bleeding HC CBC,PLT & AUTO DIFF Routine 10:40 AM EDT Other ulcerative colitis with rectal bleeding COMPREHENSIVE METABOLIC PANEL Routine 02/17/2022 10:40 AM EDT Other ulcerative colitis with rectal bleeding documented in this encounter Results * Calprotectin, Stool (02/19/2022 8:00 AM EDT) Calprotectin, Stool 55 <=79 mcg/g [facility] Comment: Calprotectin Concentration ? Interpretation ? < 80 mcg/g ?Normal ? 80 ? 160 mcg/g ?Borderline ? >160 mcg/g ?Elevated Stool 02/19/2022 8:00 AM EDT 02/19/2022 11:25 AM EDT Narrative Resulting Agency Comment Spec In Lab Monalisa C Dragnev SOUS CHEF BODY FLUIDS AND S TOOLS ORDERABLES [facility] [place] [address] * (ABNORMAL) Differential, Automated (02/17/2022 10:40 AM EDT) Neutrophil % 65.7 % [facility] Neutrophil Absolute 4.53 1.70 - 6.10 x10(3)/mc L [facility] Lymph % 22.8 % [facility] Lymphocytes Abs 1.6 0.9 - 3.2 x10(3)/mc L [facility] Monocyte % 7.3 % [facility] Monocyte Abs 0.5 0.3 - 0.9 x10(3)/mc L [facility] Eos % 2.6 % [facility] Eosinophils Abs 0.2 0.0 - 0.4 x10(3)/mc L [facility] Basophil % 0.6 % [facility] Baso Absolute 0.0 0.0 - 0.1 x10(3)/mc L [facility] Immature Gran % 1.00 % [facility] Comment: Immature granulocytes(IG's)percentage and absolute count will include metamyelocytes, myelocytes, and promyelocytes. Blood smears from CBCs yielding IG's will be scanned manually for concordance. If this scan disagrees with the automated IG or if promyelocytes are noted, a manual differential will be performed. Immature Gran Absolute 0.07(H) 0.00 - 0.04 x10(3)/mc L [facility] Blood 02/17/2022 10:4 0 AM EDT 02/17/2022 10:50 AM EDT Narrative Resulting Agency Comment Spec In Lab Marcelle Conte Dg Weinberg SOUS CHEF HEMATOLOGY ORDERA BLES [facility] [place] [address] * (ABNORMAL) Hemogram (02/17/2022 10:40 AM EDT) White Blood Cell 6.9 4.0 - 9.5 x10(3)/mc L [facility] Red Blood Cell 3.58(L) 4.58 - 5.54 x10(6)/mc L [facility] Hemoglobin 11.5(L) 13.7 - 16.5 g/dL [facility] Hematocrit 35.1(L) 40.5 - 48.5 % [facility] Mean Cell Volume 98.0(H) 82.9 - 93.1 [facility] Mean Cell Hemoglobin 32.1 27.5 - 32.1 pg [facility] Mean Cell Hemoglobin Concentration 32.8 32.0 - 35.7 g/dL [facility] Platelet 220 145 - 357 x10(3)/mc [facility] RDW Standard Deviation 44.3 36.0 - 45.0 [facility] RDW coefficient of variation 12.3 11.4 - 13.8 % [facility] Mean Platelet Volume 10.5 7.6 - 12.9 [facility] NRBC% auto 0.0 % [facility] NRBC Absolute 0.000 0.000 - 0.000 x10(3)/[facility] Blood 02/17/2022 10:4 0 AM EDT 02/17/2022 10:50 AM EDT Narrative Resulting Agency Comment Spec In Lab Marcelle Conte Dg Weinberg APRN HEMATOLOGY ORDERA BLES [facility] [place] [address] * (ABNORMAL) CRP, acute inflammation (02/17/2022 10:40 AM EDT) C-Reactive Protein 5.0(H) <=4.9 mg/L [facility] Blood 02/17/2022 10:4 0 AM EDT 02/17/2022 10:50 AM EDT Narrative Resulting Agency Comment Spec In Lab MonalisaDg Weinberg SOUS CHEF CHEMISTRY ORDERAB LES Performing Organization Address [facility]/ZIP Co de Phone Number [facility] [place] [address] * (ABNORMAL) Sedimentation rate (02/17/2022 10:40 AM EDT) [facility] Sedimentation Rate Automated 64(H) 3 - 46 mm/hr [facility] Comment: Effective November 02, 2019 new capillary photometric technology has resulted in a change in reference ranges. It is recommended that each ESR result be reviewed with its own age appropriate reference range. Blood 02/17/2022 10:4 0 AM EDT 02/17/2022 10:50 AM EDT Narrative Resulting Agency Comment Spec In Lab Marcelle Weinberg SOUS CHEF HEMATOLOGY ORDERA BLES Performing Organization Address City/[facility]/ZIP Co de Phone Number [facility] [place] [address] * Comprehensive metabolic panel (non-fasting) (02/17/2022 10:40 AM EDT) Glucose 94 65 - 199 mg/dL [facility] Comment:Diabetes: >=200 mg/d L plus symptoms Blood Urea Nitrogen 14 10 - 20 mg/dL [facility] Creatinine 1.06 0.80 - 1.50 mg/dL [facility] Sodium 144 135 - 145 mmol/L [facility] Potassium 3.9 3.5 - 5.0 mmol/L [facility] Comment: Please note: ??Patients with WBC >100,000 may have falsely elevated Potassium levels. ??For accurate Potassium quantification in these patients send serum separator tube (gold top) for subsequent determinations. ??Contact the Clinical Chemistry Laboratory if there are any questions. Chloride 107 98 - 107 mmol/L [facility] Carbon Dioxide 26 22 - 31 mmol/L [facility] Anion Gap 11 5 - 15 mmol/L [facility] Calcium 9.7 8.5 - 10.5 mg/dL [facility] Protein, Total 8.0 6.1 - 8.0 g/dL [facility] Albumin 4.3 3.2 - 5.2 g/dL [facility] Aspartate Aminotransferase 10 0 - 39 unit/L [facility] Alanine Aminotransferase 17 0 - 55 unit/L [facility] Alkaline Phosphatase 78 40 - 130 unit/L [facility] Bilirubin, Total 0.4 0.2 - 1.3 mg/dL [facility] Est Glomerular Filtration Rate 69 >=60 mL/min/1. 73 m?? [facility] Comment: This patient? s estimated glomerular filtration rate (eGFR) is between 69 mL/min/1.73 m2 (patients with less muscle mass per kg body weight) and 80 mL/min/1.73 m2 (patients with more muscle mass [...] and symptoms in addition to eGFR. Blood 02/17/2022 10:4 0 AM EDT 02/17/2022 10:50 AM EDT Narrative Resulting Agency Comment Spec In Lab Marcelle Weinberg SOUS CHEF CHEMISTRY ORDERAB LES [facility] [place] [address] documented in this encounter Visit Diagnoses Diagnosis Other ulcerative colitis with rectal bleeding documented in this encounter Care Teams Administrative Asst Relationship Specialty Start Date End Date Deacon Watters APRN [address] [place] [address] PCP - General Family Medicine 02/17/22 documented as of this encounter
--- OUTSIDE RECORDS SUMMARY | 2024-06-29 16:04 | XMS_ITS | Encounter Summary ---
Author Organization [facility] [place] [address] Care Team Providers Care Board Runner Name Role Phone Maximilian Fall MD Primary Care Provider [phone] Encounter Details Date Type Department Care Team (Latest Contact Info) Description 09/12/2019 3:40 PM EDT Office [place] [address] Dion Barlow MD [facility] [place] [address] Left sided colitis without complications Social History [...] Sign Reading Time Taken Comments Blood Pressure 145/98 09/12/2019 3:49 PM EDT Pulse 88 09/12/2019 3:49 PM EDT Temperature - - Respiratory Rate - - Oxygen Saturation - - Inhaled Oxygen Concentration - - Weight - - Height 193 cm (6' 4) 09/12/2019 3:49 PM EDT Body Mass Index - - documented in this encounter Patient Instructions * Patient Instructions* Anthony Hamlin MD - 09/12/2019 3:40 PM EDT Recommendations: # continue current regimen of Uceris foam enemas Thursday and Thursday and sulfasalazine 2g BID # repeat colonoscopy for continued surveillance in January 2021 # annual BUN / Cr (kidney function) while on sulfasalazine [normal in April 2019] documented in this encounter Progress Notes * Dion Barlow MD - 09/12/2019 3:40 PM EDT Primary care provider: Maximilian Fall MD Reason for visit: ulcerative colitis follow up Problem List Patient Active Problem List Diagnosis Date Noted ??? Ulcerative colitis 10/01/2011 Priority: High ??? Diabetes mellitus 10/01/2011 ??? Hearing loss 10/01/2011 ??? GERD (gastroesophageal reflux disease) 10/01/2011 ??? Hydrocele 10/01/2011 ??? Asthma 10/01/2011 Detailed IBD History: ?? Colonoscopy 04/08/10 (Dr. Gomes [facility]) - inflammation only within the rectum and sigmoid; extent of the exam was to the hepatic flexure; biopsies proximal to the sigmoid nl ?? Repeat exam 11/27/11 ([facility]): mildly active colitis in the sigmoid [...] TREATMENT: cortenemas, Asacol, Rowasa, prednisone, and imodium Current IBD Meds: - Uceris foam enemas twice weekly - sulfasalazine 2g BID Interval History: Feeling well at today's visit. No new concerns. Formed bowel movements without blood or urgency. Nonocturnal bowel movements. No hematochezia, melena or BRBPR; no nausea or emesis. No fevers or rigors. Continues to be very active with his vegetable gardens and managing his land. Shot 3 grouse this morning! Social History Social History Narrative ??? Not on file Review of systems as in the HPI, the rest of the review of systems were negative. Past Medical History, Social History and Family History is unchanged. Medications Outpatient Encounter Medications as of 09/12/2019 Medication Sig Dispense Refill ??? sulfaSALAzine (AZULFIDINE) 500 mg Tablet Take 4 tablets by mouth 2 times daily. 720 tablet 3 ??? budesonide 2 mg/actuation Foam Place 2 mg rectally See Admin Instructions. 2mg once every nightx 4 weeks; then 2mg every other night until symptoms better then stop. 133.6 g 0 ??? albuterol 90 mcg/actuation HFA Aerosol Inhaler [...] taking: Reported on 04/25/2019) 90 g 3 No facility-administered encounter medications on file as of 09/12/2019. Allergies/Adverse reactions Erythromycin base and Tetracyclines Physical Examination Wt Readings from Last 3 Encounters: 05/09/19 115.8 kg (255 lb 4.8 oz) 04/28/19 113.4 kg (250 lb) 04/25/19 113.8 kg (250 lb 12.8 oz) Last value Range last 24 hrs Heart Rte Heart Rate: 88 Heart Rate: [88] Blood Pressure BP: (!) 145/98 BP: (145)/(98) Gen: well appearing, in no acute distress Heart: regular Resp: CTA Abd: normal BS, soft/nontender diffusely, no masses, no hepatomegaly, no splenomegaly Extrem: no edema Recent labs No visits with results within 3 Month(s) from this visit. Latest known visit with results is: Admission on 04/28/2019, Discharged on 04/28/2019 Component Date Value Ref Range Status ??? POC Glucose 04/28/2019 91 65 - 199 mg/dL Final ??? UPPER GI ENDOSCOPY 04/28/2019 Final Value:[facility] Endoscopy Procedure Date: 04/28/2019 4:39 PM Patient Name: Brian Rodriguez Date of : 1950 Age: 68 Order #: [id number] Instrument Name: [id number] Procedure: Upper GI endoscopy Indications: Abnormal CT of the GI tract (duodenal thickening) Providers: Iza Coates MD, Nohemi Ball RN, Jonathan Ko, Outreach Librarian Referring MD: Maximilian Fall MD Requesting Provider: Marcelle Weinberg MD Medicines: Midazolam 4 mg IV, Fentanyl 150 micrograms IV Complications: No immediate complications. Procedure: The procedure, indications, benefits, risks and alternatives were explained to the patient. Specifically discussed were potential complications including, but not limited to, bleeding, perforation, infection, missing a cancer, and adverse medication reactions. The Endoscope was introduced through the mouth, and advanced to the third part of duodenum. The patient tolerated the procedure well. The upper GI endoscopy was accomplished without difficulty. The patient tolerated the procedure well. Findings: The examined esophagus was normal. The Z-line was regular and was found 45 cm from the incisors. A 3 cm hiatal hernia was present. A single 5 mm sessile polyp was found in the gastric fundus. The polyp was removed with a cold biopsy forceps. Resection and retrieval were complete. The examined duodenum was normal without endoscopic evidence of abnormal thickening. Several random biopsies were taken with a cold forceps for histology. Moderate Sedation: I was present during the intraservice time as documented by the sedation RN. Impression: - Normal esophagus. - Z-line regular, 45 cm from the incisors. - 3 cm hiatal hernia. - A single gastric polyp. Resected and retrieved. - Normal examined duodenum. Biopsied. Recommendation: - Await pathology results. - Discharge home ambulatory. - Follow-up with Farideh Weinberg APRN and Dr. Karthik Barlow in IBD clinic as scheduled. Attending Participation: I personally performed the entire procedure. Iza Coates MD 04/28/2019 4:57:28 PM Number of Addenda: 0 Note Initiated On: 04/28/2019 4:39 PM ??? Surgical Pathology Report 04/28/2019 Final Value:[id number] Location: 4T; [facility]; A The signing pathologist has (i) examined the relevant preparation(s) for the specimen(s) and (ii) rendered or confirmed the diagnosis(es). . Surgical Pathology DIAGNOSIS A - Random duodenum, biopsy: Duodenal mucosa within normal limits, including preserved villous architecture. B - Fundic gland, polypectomy: Gastric fundic gland polyp. Electronically signed by: Joana Soler MD Verified: 05/02/2019 Pathologist Performed at: -[facility] Dept. of Pathology, [place], [place] CLINICAL INFORMATION Specimen Submitted: A - Randokm duodenal biopsies B - Fundic gland polyp Clinical History and Diagnosis: History of UC, duodenal thickening SPECIMEN PROCESSING A - Labeled/Fixative: Random duodenal biopsies, formalin. Quantity/Size: Five, 0.3-0.5 cm. Tissue Description: Soft, pink tissues. Sections/Processing: Submi tted en toto in 1 cassette labeled A1. B - Labeled/Fixative: Fundic gland polyp, formalin. Quantity/Size: Two, 0.2 and 0.3 cm. Tissue Description: Soft, pink tissues. Sections/Processing: Submitted en toto in 1 cassette labeled B1. ejr Recent endoscopic procedures As in detailed IBD history above Recent relevant imaging As in detailed IBD history above Impression/Plan Mr. Brian Rodriguez is a 69 yo M with ulcerative colitis well controlled on sulfasalazine 2g BID and Uceris foam enemas twice weekly (Thu and Thu). He was able to taper Uceris slowly and found this regimen keeps his symptoms at bay. Recommendations: # continue current regimen of Uceris foam enemas Thursday and Thursday and sulfasalazine 2g BID # repeat colonoscopy for continued surveillance in January 2021 # annual BUN / Cr (kidney function) while on sulfasalazine [normal in April 2019] Please contact me if there are any further questions regarding the care of this patient. Anthony Hamlin [place] [address] ATTENDING ADDENDUM I interviewed and examined Brian Rodriguez with Dr. Hamlin in clinic today. I have discussed the case with him and confirm the history outlined in this note. The assessment and plan were formulated indiscussion with me at the time of this encounter, and I agree with them as documented. Symptomatically he is in complete remission. Suspect that he will require chronic topical therapy for his ulcerative colitis. He would like to try and taper the Uceris foam to once weekly, which is reasonable. He knows that he should go back to nightly for at least 2 weeks if symptoms were to recur, and then he could taper back down to 2 doses per week. Otherwise, he will continue on his current dose of sulfasalazine. 15 min of this 20 min [id number] visit was spent counseling the patient in the issues outlined above. Davina Barlow MD Photographic Laboratory Supervisorhistorical manuscripts curator Co-Director, [facility] Section of Gastroenterology [place] [address] documented in this encounter Plan of Treatment Upcoming Encounters Date Type Department Care Team (Late st Contact Info) Description 08/15/2024 9:00 AM EDT Office Visit Gastroenterology at [place] [phone] Dion Barlow MD [facility] [place] [address] 09/01/2024 11:20 AM EDT Office Visit Dermatology at [place] [address] [place] [phone] Gómez Mercer MD [facility] [place] [address] 09/21/2024 2:45 PM EDT Office Visit Pain and Spine Center at [place] [phone] Trung Hoyos MD [facility] [place] [address] documented as of this encounter Visit Diagnoses Diagnosis Left sided colitis without complications Left sided ulcerative (chronic) colitis documented in this encounter Care Teams Board Runner Relationship Specialty Start Date End Date Maximilian Fall MD [address] [place] [address] PCP - General 10/01/11 02/13/21 documented as of this encounter
--- OUTSIDE RECORDS SUMMARY | 2024-06-29 16:04 | XMS_ITS | Encounter Summary ---
Author Organization [facility] [place] [address] Care Team Providers Care Roll Mill Operator Name Role Phone Maximilian Fall MD Primary Care Provider [phone] Reason for Visit * Reason Comments Medication Refill Encounter Details Date Type Department Care Team (Late st Contact Info) Description 09/03/2020 Refill [place] [phone] Dion Barlow MD [facility] [place] [address] Social History Tobacco Use Types Packs/Day Years [...] 9:00 AM EDT Office [place] [phone] Dion Barlow MD [facility] [place] [address] 09/01/2024 11:20 AM EDT Office Visit Dermatology at [facility] [address] [address] Gómez Mercer MD [facility] DR EDDIE RE[place] [address] 09/21/2024 2:45 PM EDT Office Visit Pain and Spine Center at [facility] [place] [phone] Trung Hoyos MD [facility] [place] [address] documented as of this encounter Visit Diagnoses Not on filedocumented in this encounter Care Teams Roll Mill Operator Relationship Specialty Start Date End Date Maximilian Fall MD [address] [place] [address] PCP - General 10/01/11 02/13/21 documented as of this encounter
--- OUTSIDE RECORDS SUMMARY | 2024-06-29 16:04 | XMS_ITS | Encounter Summary ---
Author Organization [facility] [place] [address] Care Team Providers Care Safety Scientist Name Role Phone Maximilian Fall MD Primary Care Provider [phone] Reason for Visit * Reason Onset Date Comments Medication Refill 02/16/2020 Encounter Details Date Type Department Care Team (Late st Contact Info) Description 02/16/2020 Refill [place] [phone] Bethany Trivedi RN Left sided colitis without complications Social History [...] encounter Miscellaneous Notes * Telephone Encounter - Bethany Trivedi RN - 02/16/2020 12:27 PM EDT Brian calls and requests a refill on Uceris foam enema. He has had a few weeks of abdominal cramps, increased stools, and occasional rectal bleeding. He has been isolating for several weeks now already and has no plans to leave his house and has found the Uceris foam helpful in the past documented in this encounter Plan of Treatment Upcoming Encounters Date Type Department Care Team (Late st Contact Info) Description 08/15/2024 9:00 AM EDT Office Visit [place] [address] Dion Barlow MD [facility] [place] [address] 09/01/2024 11:20 AM EDT Office Visit Dermatology at [facility] [address] [place] [address] Gómez Mercer MD [facility] [place] [address] 09/21/2024 2:45 PM EDT Office Visit Pain [place] [phone] Trung Hoyos MD [facility] [place] [address] documented as of this encounter Visit Diagnoses Diagnosis Left sided colitis without complications Left sided ulcerative (chronic) colitis documented in this encounter Care Teams Safety Scientist Relationship Specialty Start Date End Date Maximilian Fall MD [address] [place] [address] PCP - General 10/01/11 02/13/21 documented as of this encounter
--- OUTSIDE RECORDS SUMMARY | 2024-06-29 16:04 | XMS_ITS | Encounter Summary ---
Author Organization [facility] [place] [address] Care Team Providers Care Spray Gun Repairer Helper Name Role Phone Maximilian Fall MD Primary Care Provider [phone] Encounter Details Date Type Department Care Team (Latest Contact Info) Description 04/25/2019 12:15 PM EDT Ancillary Procedure [place] [phone] Marcelle Weinberg, JAZMINE [facility] [place] [address] Left sided colitis without complications Social History [...] 9:00 AM EDT Office [place] [phone] Dion Barlow MD [facility] [place] [address] 09/01/2024 11:20 AM EDT Office Visit Dermatology at [facility] [address] [place] [address] Gómez Mercer MD [facility] DR [place] [address] 09/21/2024 2:45 PM EDT Office Visit [place] [address] Trung Hoyos MD [facility] [address] documented as of this encounter Visit Diagnoses Diagnosis Left sided colitis without complications Left sided ulcerative (chronic) colitis documented in this encounter Care Teams Spray Gun Repairer Helper Relationship Specialty Start Date End Date Maximilian Fall MD [address] [place] [address] PCP - General 10/01/11 02/13/21 documented as of this encounter
[2024-06-29] MEDS: MAGNESIUM SULFATE 1 GM/100 ML BAG IVINF (16:05)
--- OUTSIDE RECORDS SUMMARY | 2024-06-29 16:05 | XMS_ITS | Encounter Summary ---
Author Organization [facility] [place] [address] Care Team Providers Care Wafer Abrading Machine Tender Name Role Phone Maximilian Fall MD Primary Care Provider [phone] Encounter Details Date Type Department Care Team (Late st Contact Info) Description 07/07/2016 Telephone [place] [phone] Bethany Trivedi RN Social History Tobacco Use Types Packs/Day Years Used Date Smoking Tobacco: Former Cigarettes 4 30 1 12/01/1961 - 10/01/1992 Smokeless Tobacco: Never Alcohol Use Standard Drinks/Week Comments No 0 (1 standard drink = 0.6 oz pur e alcohol) Sex and Gender Information Value Date Recorded Sex Assigned at Male 12/07/2023 7:54 AM EST Gender Identity Not on file Sexual Orientation Not on file documented as of this encounter Miscellaneous Notes * Telephone Encounter - Bethany Trivedi RN - 07/07/2016 11:14 AM EDT Brian returns call. He said the last 2 or 3 weeks things are acted up. He is having abdominal pain and cramps and diarrhea. He has been taking imodium for the diarrhea and has restarted Cortifoam. He would like to get some labs done, CRP, CBC, Sed Rate, CMP, and stool studies. * Telephone Encounter - Bethany Trivedi RN - 07/07/2016 10:37 AM EDT Brian calls and leaves a voice mail with complaints of his colitis acting up. Attempted to call Brian back, received a voice mail, message left for return call documented in this encounter Plan of Treatment Upcoming Encounters Date Type Department Care Team (Late st Contact Info) Description 08/15/2024 9:00 AM EDT Office [place] [address] Dion Barlow MD [facility] [place] [address] 09/01/2024 11:20 AM EDT Office Visit Dermatology at [address] [phone] Gómez Mercer MD [facility] [place] [address] 09/21/2024 2:45 PM EDT Office Visit [facility] [place] [address] Trung Hoyos MD [facility] [place] [address] documented as of this encounter Results * C. Difficile Screen (07/18/2016 2:32 PM EDT) C Diff Interp Negative Negative [facility] Comment: C. diff ??Negative Clostridium difficile is not present in the specimen. If patient is having diarrhea suspected to be from an infectious cause, then Contact Precautions are still required. Stool specimen (specimen) 07/18/2016 2:32 PM EDT 07/18/2016 2:32 PM EDT Narrative Resulting Agency Comment Spec In Lab Dion Barlow MD MICROBIOLOGY - GENER AL ORDERABLES [facility] [place] [address] * (ABNORMAL) Sedimentation rate (07/14/2016 12:21 PM EDT) Sedimentation Rate Automated 17(H) 0 - 15 mm/hr [facility] Blood specimen (specimen) 07/14/2016 12:21 PM EDT 07/14/2016 12:29 PM EDT Narrative Resulting Agency Comment Spec In Lab L Karthik aBrlow MD HEMATOLOGY ORDERABLE S [facility] [place] [address] * Comprehensive metabolic panel (non-fasting) (07/14/2016 12:21 PM EDT) Glucose 147 65 - 199 mg/dL [facility] Comment:Diabetes: >=200 mg/d L plus symptoms Blood Urea Nitrogen 17 10 - 20 mg/dL [facility] Creatinine 1.04 0.80 - 1.50 mg/dL [facility] Comment: Please note that the pediatric reference intervals supplied above were not validated at [facility]. Results from pediatric patients should be interpreted in conjunction to the patient's age, height and muscle mass. Sodium 140 135 - 145 mmol/L [facility] Potassium 4.6 3.5 - 5.0 mmol/L [facility] Comment: Please note: ??Patients with WBC >100,000 may have falsely elevated Potassium levels. ??For accurate Potassium quantification in these patients send serum separator tube (gold top) for subsequent determinations. ??Contact the Clinical Chemistry Laboratory if there are any questions. Chloride 102 98 - 107 mmol/L [facility] Carbon Dioxide 25 22 - 31 mmol/L [facility] Anion Gap 13 5 - 15 mmol/L [facility] Calcium 9.7 8.5 - 10.5 mg/dL [facility] Protein, Total 7.9 6.1 - 8.0 gm/dL [facility] Albumin 4.4 3.2 - 5.2 gm/dL [facility] Aspartate Aminotransferase 15 0 - 39 unit/L [facility] Alanine Aminotransferase 20 0 - 55 unit/L [facility] Alkaline Phosphatase 65 40 - 120 unit/L [facility] Bilirubin, Total 0.4 0.2 - 1.3 mg/dL [facility] Bilirubin, Direct 0.1 0.0 - 0.3 mg/dL [facility] Est Glomerular Filtration Rate >60 >=60 [facility] Comment: This estimated GFR (eGFR) value was calculated using the MDRD equation which has been validated on patients between the ages of 18 and 70. The MDRD should not be used to assess kidney function in patients < 18 years of age or in patients with extremes of body mass, or in patients with acute kidney failure. This value should be multiplied by 1.2 for patients. For further information please copy and paste the following links into your internet browser. [email or web address] Blood specimen (specimen) 07/14/2016 12:21 PM EDT 07/14/2016 12:29 PM EDT Narrative Resulting Agency Comment Spec In Lab L Karthik Barlow MD CHEMISTRY ORDERABLES [facility] [place] [address] * High Sensitivity CRP (07/14/2016 12:21 PM EDT) C-Reactive Protein High Sensitivity 4.8 mg/L [facility] Comment: Interpretations: 1) For accurate cardiac risk assessment, the average of 2 values >2 weeks apart should be obtained (ref 1&2). A value >10 mg/L indicates an inflammatory condition, concentrations >10 mg/L should not be used for cardiac risk assessment. ?<1.0 mg/L: low risk ?1.0 - 3.0 mg/L: moderate risk ?>3.0 mg/L: high risk groups for future cardiovascular events 2) The general reference range of apparently healthy individuals using this test is <5.0 mg/L (derived from the test package insert) References: 1. Christiane TA et. al. ??AHA/CDC Scientific Statement: Markers of Inflammation and Cardiovascular Disease. ??Circulation 2003; 107:499-511 2. Ridker PM. ??Clinical applications of C-reactive protein for cardiovascular disease detection and prevention. 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
--- OUTSIDE RECORDS SUMMARY | 2024-06-29 16:05 | XMS_ITS | Encounter Summary ---
Author Organization [facility] [place] [address] Care Team Providers Care Superintendent Maintenance Name Role Phone Maximilian Fall MD Primary Care Provider [phone] Encounter Details Date Type Department Care Team (Late st Contact Info) Description 03/21/2016 - 03/21/2016 11:59 PM EDT Hospital Encounter [place] [phone] [address] Thomas Temporary Pain Discharge Disposition: Home Social History Tobacco Use [...] Sig Dispensed Refills Start Date End Date glipiZIDE (GLUCOTROL) 10 mg 24 hr tablet Take 10 mg by mouth daily. folic acid (FOLVITE) 1 mg tabletIndications:Ulc erative colitis Take 1 tablet by mouth daily. 90 tablet 3 11/22/2012 omeprazole (PRILOSEC) 20 mg capsule Take 40 mg by mouth daily. hydrocortisone (CORTIFOAM) 10 % (80 mg) FoamIndications:Pain in right hip,Bilateral low back pain, with sciatica presence unspecified,Abdominal pain, unspecified abdominal location,Chronic ulcerative enterocolitis, unspecified complication Place 1 applicator rectally nightly. 90 g 3 11/06/2015 02/18/2017 lisinopril (PRINIVIL;ZESTRIL) 5 mg Tablet Take 5 mg by mouth daily. 05/11/2017 insulin glargine (LANTUS) Solution Inject 50 Units subcutaneously nightly. 05/03/2018 sulfaSALAzine (AZULFIDINE) 500 mg tablet Take 2,000 mg by mouth 2 times daily. 05/16/2016 propranolol (INDERAL) 80 mg tablet Take 80 mg by mouth daily. 05/11/2017 fluticasone (FLOVENT) 110 mcg/Actuation inhaler Inhale 2 puffs into the lungs 2 times daily. 05/03/2018 metFORMIN (GLUCOPHAGE) 500 mg tablet 500mg, PO, Twice daily 01/15/200705/11 documented as of this encounter Plan of Treatment Upcoming Encounters Date Type Department Care Team (Late st Contact Info) Description 08/15/2024 9:00 AM EDT Office [place] [address] Dion Barlow MD [facility] [place] [address] 09/01/2024 11:20 AM EDT Office Visit Dermatology at [address] [address] Gómez Mercer MD [facility] [place] [address] 09/21/2024 2:45 PM EDT Office Visit [facility] [place] [address] Trung Hoyos MD [facility] [place] [address] documented as of this encounter Procedures Procedure Name Priority Date/Time Associated Diagnosis Comments FILM LIBRARY STORAGE ONLY CT ABDOMEN AND PELVIS Routine 03/21/2016 12:00 AM EDT Pain documented in this encounter Results * Film Library- Storage Only CT Abdomen & Pelvis (03/21/2016 12:00 AM EDT) Narrative [facility] - 03/21/2016 7:24 PM EDT This exam is for storage only and is auto-finalizing. Dr Le[facility] FILM LIBRARY ORD ERABLES [place], [place] documented in this encounter Visit Diagnoses Diagnosis Pain Generalized pain documented in this encounter Care Teams Superintendent Maintenance Relationship Specialty Start Date End Date Maximilian Fall MD [address] [place] [address] PCP - General 10/01/11 02/13/21 documented as of this encounter
--- OUTSIDE RECORDS SUMMARY | 2024-06-29 16:05 | XMS_ITS | Encounter Summary ---
Author Organization [facility] [place] [address] Care Team Providers Care Sonography Technologist Name Role Phone Maximilian Fall MD Primary Care Provider [phone] Reason for Visit * Reason Comments Follow-up Encounter Details Date Type Department Care Team (Latest Contact Info) Description 11/10/2016 8:30 AM EST Office [place] [address] Dion Barlow MD [facility] [place] [address] Ulcerative rectosigmoiditis with rectal bleeding Social History Tobacco Use [...] Sign Reading Time Taken Comments Blood Pressure 139/82 11/10/2016 8:28 AM EST Pulse 66 11/10/2016 8:28 AM EST Temperature - - Respiratory Rate - - Oxygen Saturation - - Inhaled Oxygen Concentration - - Weight 117 kg (258 lb) 11/10/2016 8:28 AM EST Height 193 cm (6' 4) 11/10/2016 8:28 AM EST Body Mass Index 31.4 11/10/2016 8:28 AM EST documented in this encounter Patient Instructions * Patient Instructions* Dion Barlow MD - 11/10/2016 8:30 AM EST # Continue sulfasalazine 4 tabs twice daily # Continue folic acid 1 tab daily # Plan on colonoscopy for restaging and surveillance. Will schedule today. # Call us if any worsening symptoms. For diarrhea, would check stool studies to rule out infection,including C. Difficile, and then add in nightly cortifoam for at least two weeks followed by a taper. # Check complete blood count, kidney testing (creatinine), and liver tests annually to evaluate forrare complications from IBD (PSC) and from mesalamine (interstitial nephritis, abnormal LFTs, myelosuppression). This could be done with Dr. Fall - next due (by my records) until 06/2017. # Follow-up with me at the time of colonoscopy and with Farideh Weinberg APRN in the clinic 6 months. documented in this encounter Progress Notes * Dion Barlow MD - 11/10/2016 8:30 AM EST Problem List Diagnosis ??? Ulcerative colitis Overview Note: ?? Colonoscopy 04/08/10 (Dr. Gomes [facility]) - inflammation only within the rectum and sigmoid; extent of the exam was to the hepatic flexure; biopsies proximal to the sigmoid nl ?? Repeat exam 11/27/11 ([facility] [place] mildly active colitis in [...] to 25 cm - rectum spared ?? TREATMENT: cortenemas, Asacol, Rowasa, prednisone, and imodium ??? Diabetes mellitus ??? Hearing loss ??? GERD (gastroesophageal reflux disease) ??? Hydrocele ??? Asthma INTERVAL HISTORY: Mr. Rodriguez comes back to see me to follow-up ulcerative colitis. He last seen by me in April. He had some recurrent symptoms in June for which cortifoam restarted. They defnitely helped symptoms them. He has been off of them for about two months. In September, he had two bowel movements whenhe passed blood - one week apart. Otherwise, he has been feeling well. He is having 2 formed stool per day. There is no recent bleeding. There is mild abdominal pain across the lower abdominal pain. It occurs before bowel movements and improves afterwards. He is on sulfasalazine 8 pills/day. REVIEW OF SYSTEMS Notable for the gastrointestinal symptoms as described above. There has been no anorexia, fever, orunintended weight change; no red or painful eyes; no oral ulcers, chronic oral lesions, or chronic sore throat. There is no cough, shortness of breath, palpitations, or chest pain. There is no dysuria, urinary incontinence. No chronic joint pains or history of inflammatory arthritis. Had a recent skin cancer removed from the back of the neck (BCCa?) . The patient denies psychiatric problems. There are no neurologic symptoms or easy bruising or bleeding. Physical Exam Constitutional: He appears well-developed and well-nourished. No distress. Lab Results Component Value Date WBC 6.2 07/14/2016 RBC 4.11 (L) 07/14/2016 HGB 13.4 (L) 07/14/2016 HCT 40.5 07/14/2016 MCV 98.5 (H) 07/14/2016 MCH 32.6 (H) 07/14/2016 MCHC 33.1 07/14/2016 PLATELET 214 07/14/2016 RDWCV 13.2 07/14/2016 Lab Results Component Value Date ALT 20 07/14/2016 AST 15 07/14/2016 ALKPHOS 65 07/14/2016 BILITOT 0.4 07/14/2016 Lab Results Component Value Date CRP 4.8 07/14/2016 ASSESSMENT AND PLAN: Ulcerative colitis. Overall doing very well in symptomatic remission. Suspect that there is some superimposed IBS. At last staging, his colitis was in complete endoscopic and histologic remission. Isolated bleeding in Nov was more likely related to outlet bleeding (hemorrhoid, eg) than to colitis. However, due for surveillance colonoscopy anyhow. Will schedule today. In the meantime, will continue sulfasalazine for maintenance and cortifoam as rescue. For worsening diarrhea, would check stool studies and restart cortifoam. We discussed the following recommendations that were printed out for the patient: # Continue sulfasalazine 4 tabs twice daily # Continue folic acid 1 tab daily # Plan on colonoscopy for restaging and surveillance. Will schedule today. # Call us if any worsening symptoms. For diarrhea, would check stool studies to rule out infection,including C. Difficile, and then add in nightly cortifoam for at least two weeks followed by a taper. # Check complete blood count, kidney testing (creatinine), and liver tests annually to evaluate forrare complications from IBD (PSC) and from mesalamine (interstitial nephritis, abnormal LFTs, myelosuppression). This could be done with Dr. Fall - next due (by my records) 06/2017. # Follow-up with me at the time of colonoscopy and with Farideh Weinberg APRN in the clinic 6 months. 20 min of this 25 min [id number] visit was spent counseling the patient in the issues outlined above. Davina Barlow MD Contact And Service Clerks Supervisorcoarse wire drawer Section of Gastroenterology [place] [address] documented in this encounter Plan of Treatment Upcoming Encounters Date Type Department Care Team (Late st Contact Info) Description 08/15/2024 9:00 AM EDT Office [place] [address] Dion Barlow MD [facility] [place] [address] 09/01/2024 11:20 AM EDT Office Visit Dermatology at [facility] [address] [place] [phone] Gómez Mercer MD [facility] [address] ED[place] [address] 09/21/2024 2:45 PM EDT Office Visit [place] [address] Trung Hoyos MD [facility] [place] [address] Scheduled Orders Name Type Priority Associated Diagnoses Orde r Schedule COLONOSCOPY Procedures Routine Ulcerative rectosigmoiditis with rectal bleeding Ordered: 11/10/2016 documented as of this encounter Visit Diagnoses Diagnosis Ulcerative rectosigmoiditis with rectal bleeding documented in this encounter Care Teams Sonography Technologist Relationship Specialty Start Date End Date Maximilian Fall MD [address] [place] [address] PCP - General 10/01/11 02/13/21 documented as of this encounter
--- OUTSIDE RECORDS SUMMARY | 2024-06-29 16:05 | XMS_ITS | Encounter Summary ---
Author Organization [facility] [place] [address] Care Team Providers Care Painter Airbrush Name Role Phone Maximilian Fall MD Primary Care Provider [phone] Reason for Visit * Reason Comments Follow-up Encounter Details Date Type Department Care Team (Late st Contact Info) Description 05/16/2016 10:30 AM EDT Office [place] [address] Dion Barlow MD [facility] [place] [address] Other ulcerative colitis with complication Social History Tobacco Use Types Packs/Day Years [...] Sign Reading Time Taken Comments Blood Pressure 124/80 05/16/2016 10:14 AM EDT Pulse 88 05/16/2016 10:14 AM EDT Temperature - - Respiratory Rate - - Oxygen Saturation - - Inhaled Oxygen Concentration - - Weight 114.3 kg (252 lb) 05/16/2016 10:14 AM EDT Height 193 cm (6' 4) 05/16/2016 10:14 AM EDT Body Mass Index 30.67 05/16/2016 10:14 AM EDT documented in this encounter Patient Instructions * Patient Instructions* Dion Barlow MD - 05/16/2016 11:15 AM EDT # Continue sulfasalazine 4 tabs twice daily # Continue folic acid 1 tab daily # Call us if any worsening symptoms. [...] myelosuppression). This could be done with Dr. Fall. # Follow-up with me or Farideh Weinberg APRN in 6 months. documented in this encounter Progress Notes * Dion Barlow MD - 05/16/2016 10:58 AM EDT Patient Active Problem List Diagnosis ??? Ulcerative colitis Overview Note: ?? Colonoscopy 04/08/10 (Dr. Gomes [facility]) - inflammation only within the rectum and sigmoid; extent of the exam was to the hepatic flexure; biopsies proximal to the sigmoid nl ?? Repeat exam 11/27/11 [place] [place] mildly active colitis in the sigmoid colon [...] disease) Overview Note: ??? Hydrocele ??? Asthma INTERVAL HISTORY: Mr. Rodriguez comes back to see me to follow-up ulcerative colitis. He last saw Farideh Weinberg APRN. He had a laparoscopic appendectomy on 03/13/2016 complicated by post-operative abscess requiring CT guided drain placement that was removed in early March. As he reported to Farideh Weinberg APRN, the cortifoam enemas helped dramatically. He now is using itonce per month. He says that he has not had diarrhea in two months and reports 3 formed stools per day without bleeding except for a spot of blood on the tissue paper. He is on sulfasalazine 8 pills/day. Eating well. No n/v. Has had cramps prior to some bowel movements, but stools have been more firm. Physical Exam Constitutional: He appears well-developed and well-nourished. No distress. ASSESSMENT AND PLAN: Ulcerative colitis. Overall doing very well in symptomatic remission. Discussed rationale for usingsulfasalazine maintenance and cortifoam as rescue. For worsening diarrhea, would check stool studies and restart cortifoam. We discussed the following recommendations that were printed out for the patient: # Continue sulfasalazine 4 tabs twice daily # Continue folic acid 1 tab daily # Call us if any worsening symptoms. [...] myelosuppression). This could be done with Dr. Fall. # Follow-up with me or Farideh Weinberg APRN in 6 months. 10 min of this 15 min [id number] visit was spent counseling the patient in the issues outlined above. Davina Barlow MD Fish Fry[employer] technician Section of Gastroenterology [place] [address] documented in this encounter Plan of Treatment Upcoming Encounters Date Type Department Care Team (Late st Contact Info) Description 08/15/2024 9:00 AM EDT Office [place] [address] Dion Barlow MD [facility] [place] [address] 09/01/2024 11:20 AM EDT Office Visit D[facility] at [facility] [address] [place] [address] Gómez Mercer MD [facility] DR EDDIE [place] [address] 09/21/2024 2:45 PM EDT Office Visit Pain and Spine Center at [facility] [place] [address] Trung Hoyos MD [facility] [place] [address] documented as of this encounter Visit Diagnoses Diagnosis Other ulcerative colitis with complication documented in this encounter Care Teams Painter Airbrush Relationship Specialty Start Date End Date Maximilian Fall MD [address] [place] [address] PCP - General 10/01/11 02/13/21 documented as of this encounter
--- OUTSIDE RECORDS SUMMARY | 2024-06-29 16:05 | XMS_ITS | Encounter Summary ---
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 Role Phone Maximilian Fall MD Primary Care Provider [phone] Reason for Referral * Diagnostic Test (Routine) - Closed Specialty Diagnoses / Procedures Referred By Contac t Referred To Contact Radiology Diagnoses Postoperative wound abscess, initial encounter Procedures CT Retroperitoneal Abscess Drain Minnie Johnson MD [facility] [place] [address] [facility] [place] [address] Referral ID Status Reason Start Date Expiration Date V isits Requested Visits Authorized [id number] Closed Specialty Service Requested 03/22/2016 03/22/2017 1 1 Reason for Visit * Diagnostic Test (Routine) - Closed Specialty Diagnoses / Procedures Referred By Contac t Referred To Contact Radiology Diagnoses Postoperative wound abscess, initial encounter Procedures CT Retroperitoneal Abscess Drain Minnie Johnson MD [facility] [place] [address] [facility] [place] [address] Referral ID Status Reason Start Date Expiration Date V isits Requested Visits Authorized [id number] Closed Specialty Service Requested 03/22/2016 03/22/2017 1 1 Encounter Details Date Type Department Care Team (Latest Contact Info) Description 03/22/2016 10:40 AM EDT - 03/22/2016 11:59 PM EDT Hospital [place] [address] Shireen Hurtado MD [facility] [place] [address] Postoperative wound abscess, initial encounter Discharge Disposition: Home Social History Tobacco Use [...] Sign Reading Time Taken Comments Blood Pressure 166/86 03/22/2016 1:00 PM EDT Pulse 66 03/22/2016 1:00 PM EDT Temperature 37 ??C (98.6 ??F) 03/22/2016 12:00 PM EDT Respiratory Rate 20 03/22/2016 1:00 PM EDT Oxygen Saturation 94% 03/22/2016 1:00 PM EDT Inhaled Oxygen Concentration - - Weight - - Height - - Body Mass Index - - documented in this encounter Discharge Instructions * Discharge Instructions* Danyell Doyle RN - 03/22/2016 12:53 PM EDT Images from the original note were not included. INTERVENTIONAL RADIOLOGY DRAIN CARE INSTRUCTIONS Drains help to keep fluid from collecting by removing the extra blood and fluid from under the skinor from an abscess within the body. A drain is temporary. It stays in place until the drainage has slowed down or stopped. Your Provider will decide when each drain should be removed. This is usuallyafter each drain has 30cc or less in 24 hours for 2-3 days in a row. You will then be scheduled for what is called a Sinogram to check and see if the fluid collection has gotten smaller. How do I care for the drains at home? Pin your drain/s to your clothing by using a safety pin through the plastic loop on the top of the bulb. If the drain is not attached to your clothing, it may pull out from under your skin. Also, a drain usually feels more comfortable when it???s attached. To care for the drain at home, you will have to empty the drain, ???strip?? the drain tubing, and change the dressing if applicable. * See the following pages for instructions on how to do this. What problems may I have with my drain? No drainage or sudden decrease in amount of drainage- This may be due to a plug in the drain. Please notify your doctor or nurse during business hours. ??? The tube accidentally falls out- If this happens, place a dry gauze dressing over the drain site and notify your doctor or nurse during business hours. ??? Increased redness, swelling, or heat around the tube insertion site- This may be a sign of infection. Take your temperature: if it is higher than 101F or 38.8C, call your doctor or nurse immediately. Otherwise, notify your doctor or nurse during business hours and keep the dressing clean and dry. How to Empty Your Drain Note: Wash your hands thoroughly before emptying your drain(s). Unpin the drain from your clothing. 1. Turn the white stopcock so it is not parallel (in line) with the tubing. 2. Unscrew the tubing with the bulb attached from stopcock. Make sure you keep everything clean. 3. Attach the syringe with sterile saline to the stopcock. 4. Inject saline per MD order, usually 3-5 cc's. 7. Have the plastic measuring cup from the hospital ready to collect and measure the drainage. Please measure the output at the same time every 24 hours and record the amount. 1. 9. Use the drain output log chart to record the amount of drainage twice a day or any time the bulbis full. Record the total for 24 hours for each drain you have. If you have more than one drain, remember to record the drainage from each drain separately. 2. Pin the drain back on your clothing to avoid pulling it out accidently. 3. Wash your hands again. Remember to wash your hands before and after the procedure to reduce the risk of infection. Flushing the Drain: Your doctor may want the drain to be flushed once or twice daily to keep the fluid from plugging the drain. Flush the drain with 5 cc two daily with the syringes supplied to you. When to call the Interventional Radiology Department: Please call with any questions or concerns. If it is during regular office hours, please call [phone]. If it is after regular office hours, or on weekends or holidays, please call [phone] and ask to speak to the [employer] emergency medicine nurse practitioner for Interventional Radiology. You have received medication during your procedure to help lesson anxiety and keep you comfortable.These medications affect judgement and reaction time. We recommend that you do not drive, operate equipment, sign any important documents, or smoke unattended for 24 hours following your procedure. Because of the sedation, be careful on stairs, as you may be unsteady on your feet. You may resume your regular diet as tolerated. IV site -- slight redness, or tenderness is normal, you can use a warm compress. If tenderness and redness increases or foul drainage occurs, please contact your M. D. Note there is a bag to collect drainage not bulb to suction it still needs to be flushed measured and emptied as instructed,thank you. Revised 12/07/15 Drainage Record NAME: Date of Surgery: Date: Time: If more than one drain, which one: Drainage Amount (per drain) Total Amount (per drain; in 24 hours) documented in this encounter Medications at Time [...] daily 01/15/200705/11 documented as of this encounter Progress Notes * Danyell Doyle RN - 03/22/2016 12:29 PM EDT To procedure room 1145 Pre op done in room . via stretcher. Onto table Lying right side up All monitors, O2, safety strap in place. Cg Med's per protocol. cg * Minnie Johnson MD - 03/22/2016 11:41 AM EDT PRE-SEDATION ASSESSMENT / FOCUSED H&P Mr. Rodriguez is a 65 y.o. male with PMHx significant for asthma, diabetes, and ulcerative colitis whois status post laparoscopic appendectomy on 03/13/2016 who noted RLQ pain several days post-op. He presented to [facility] ED and underwent a CT scan with findings consistent with RLQ abscess. We have been consulted for CT guided abscess drain placement. The patient has been admitted to [facility] and will be transferred back to [facility] following the procedure. Addendum: The patient's history and physical exam have been reviewed and completed. There has been no interval change from that of the pre-operative history and physical exam done within the last 30 days. Risks (including hemorrhage, infection, allergic reaction, occlusion, respiratory depression), and benefits discussed and patient consented to the procedure. I have reviewed with the patient, their prior experience with sedation. The patient has been NPO per protocol I have reviewed the sedation plan for this patient???s case and concur that Fentanyl and Versed areappropriate choices for sedation and will be provided per the protocoled order set for this case Physical Exam Heart: RRR Lungs: clear ASA Classification: ASA 3 - Patient with moderate systemic disease with functional limitations Mallampati Classification: II (soft palate, uvula, fauces visible) Minnie Johnson MD Radiology, PGY-2 Pager [phone] * Danyell Doyle RN - 03/22/2016 10:29 AM EDT [facility] DAT[facility] Name: NAYA RODRIGUEZ Date of : 1950 AGE 65 y.o. [address]: [address] [place] [id number] (home) Mobile: Telephone Information: Referring Provider: Minnie Johnson REASON FOR VISIT: Assessment / Plan:?? 65 y.o. male with history as above, who presents for CT guided RLQ abscess drain placement. ?Prophylactic antibiotic: On Unasyn ?Planned access site: RLQ/Right flank ?Position:Right side up ?Labs: Per IR/CT Protocol Anticoagulant/antiplatelet/herbal med. stopped on per MD order. Allergies Allergen Reactions ??? Erythromycin Base CIS - Unknown ??? Tetracyclines Pertinent PMH: Patient Active Problem List Diagnosis Code ??? Ulcerative colitis K51.90 ??? Diabetes mellitus E11.9 ??? Hearing loss H91.90 ??? GERD (gastroesophageal reflux disease) K21.9 ??? Hydrocele N43.3 ??? Asthma J45.909 Pertinent PSH: Past Surgical History Procedure Laterality Date ??? Pro colonoscopy, diagnostic 11/27/2011 COLONOSCOPY, DIAGNOSTIC performed by Dion OSULLIVAN at [facility] ??? Pro sigmoidoscopy, diagnostic 03/16/2012 FLEXIBLE SIGMOIDOSCOPY performed by YUDI MALLOY at [facility]COPY ??? Upper gi endoscopy, exam 10/01/2012 UPPER GI ENDOSCOPY performed by Dion OSULLIVAN at [facility] ??? Pro colonoscopy, diagnostic 07/13/2014 COLONOSCOPY, DIAGNOSTIC performed by Dion Osullivan MD at [facility] Date/Procedure Med's given/comments No previous found 03/22/16 CT Guided drain placement Fentanyl 250 mcgs iv., pt tolerated very well. Laboratory Results: Lab Results Component Value Date CREATININE 1.15 11/06/2015 Lab Results Component Value Date K 4.4 11/06/2015 Lab Results Component Value Date PLATELET 216 11/06/2015 Medications: Prior to Admission medications Medication Sig Start Date End Date Taking? Authorizing Provider hydrocortisone (CORTIFOAM) 10 % (80 mg) Foam Place 1 applicator rectally nightly. 11/06/15 Marcelle Weinberg APRN lisinopril (PRINIVIL;ZESTRIL) 5 mg Tablet Take 5 mg by mouth daily. PROVIDER, HISTORICAL insulin glargine (LANTUS) Solution Inject 50 Units subcutaneously nightly. PROVIDER, HISTORICAL sulfaSALAzine (AZULFIDINE) 500 mg tablet Take 2,000 mg by mouth 2 times daily. PROVIDER, HISTORICAL glipiZIDE (GLUCOTROL) 10 mg 24 hr tablet Take 10 mg by mouth 2 times daily. PROVIDER, HISTORICAL folic acid (FOLVITE) 1 mg tablet Take 1 tablet by mouth daily. 11/22/12 Dion Osullivan MD propranolol (INDERAL) 80 mg tablet Take 80 mg by mouth daily. PROVIDER, HISTORICAL omeprazole (PRILOSEC) 20 mg capsule Take 40 mg by mouth daily. PROVIDER, HISTORICAL fluticasone (FLOVENT) 110 mcg/Actuation inhaler Inhale 2 puffs into the lungs 2 times daily. PROVIDER, HISTORICAL metFORMIN (GLUCOPHAGE) 500 mg tablet 500mg, PO, Twice daily 01/15/07 documented in this encounter Procedure Notes * Shireen Hurtado MD - 03/22/2016 12:34 PM EDTProcedure(s): CT GUIDED DRAIN RETROPERITONEAL ABSCESS VIR PROCEDURE NOTE Procedure: CT-guided RLQ drainage catheter placement (acc # [id number]) Indication : 65 y.o. male with PMHx significant for asthma, diabetes, and ulcerative colitis who isstatus post laparoscopic appendectomy on 03/13/2016 who noted RLQ pain several days post-op. He presented to [facility] ED and underwent a CT scan with findings consistent with RLQ abscess. We have been consulted for CT guided abscess drain placement. The patient has beenadmitted to [facility] and will be transferred back to [facility] following the procedure. . Technique: After discussing risks (including infection and hemorrhage), and benefits, patient consented to the procedure. Due to the painful nature of the procedure, split doses of fentanyl were administered by the IR nurse during continuous monitoring of pulse, blood pressure and oxygen saturation. Total dose of fentanyl 250 mcg IV. RLQ abscess was localized with noncontrast CT abdomen. Maximal sterile barrier technique was used throughout the procedure. After sterile preparation overlying skin, 1% lidocaine SQ was administered for anesthesia, and an 18 ga needle was advanced under CT fluoroscopic guidance into the collection.Over an .035 guidewire, tract was dilated to 8 Fr, and a 8.5 Fr locking pigtail drain was placed. Catheter was secured to the skin and left to bag drainage. Post- procedure CT images were obtained. Patient tolerated the procedure well. There were no immediate complications. Findings: 4cm thick walled air containing RLQ abscess from which 10cc of pus was aspirated. Sample sent for analysis. Impression: Successful CT guided placement RLQ abscess drain. Resident/Fellow: Minnie Johnson MD I, Dr. Hurtado, performed the procedure. EBL: 0 5 cc 1% lidocaine administered SQ. documented in this encounter Plan of Treatment Upcoming Encounters Date Type Department Care Team (Late st Contact Info) Description 08/15/2024 9:00 AM EDT Office [place] [address] Dion Osullivan MD [facility] [place] [address] 09/01/2024 11:20 AM EDT Office Visit Dermatology at [facility] [address] [place] [address] Gómez Mercer MD [facility] [place] [address] 09/21/2024 2:45 PM EDT Office Visit Pain and Spine Center at [facility], [place] [address] Trung Hoyos MD [facility] [place] [address] documented as of this encounter Procedures Procedure Name Priority Date/Time Associated Diagnosis Comments CT RETROPERITONEAL ABSCESS DRAIN Routine 03/22/2016 12:34 PM EDT Postoperative wound abscess, initial encounter ANAEROBIC CULTURE Routine 03/22/2016 10: 54 AM EDT ABSCESS/WOUND ASP CULTURE, AEROBIC AND ANAEROBIC Routine 03/22/2016 10:54 AM EDT ABSCESS/WOUND ASPIRATE CULTURE Routine 03/22/2016 10:54 AM EDT documented in this encounter Results * CT Retroperitoneal Abscess Drain (03/22/2016 12:34 PM EDT) Anatomical Region Laterality Modality Abdomen Computed Tomogra phy Narrative 03/22/2016 1:02 PM EDT VIR PROCEDURE NOTE Procedure: CT-guided RLQ?? drainage catheter placement (ACC # [id number]) Indication : 65 y.o. male with PMHx significant for asthma, diabetes, and ulcerative colitis who is status post laparoscopic appendectomy on 03/13/2016 who noted RLQ pain several days post-op. He presented to [facility] ED and underwent a CT scan with findings consistent with RLQ abscess. We have been consulted for CT guided abscess drain placement. The patient has been admitted to [facility] and will be transferred back to [facility] following the procedure. Technique: After discussing risks (including infection and hemorrhage), and benefits, patient consented to the procedure. Due to the painful nature of the procedure, split doses of fentanyl were administered by the IR nurse during continuous monitoring of pulse, blood pressure and oxygen saturation.?? Total dose of fentanyl 250 mcg IV. RLQ abscess was localized with noncontrast CT abdomen.?? Maximal sterile barrier technique was used throughout the procedure. After sterile preparation overlying skin, 1% lidocaine SQ was administered for anesthesia, and an 18 ga needle was advanced under CT fluoroscopic guidance into the collection.?? Over an .035 guidewire, tract was dilated to 8 Fr, and a 8.5 Fr locking pigtail drain was placed.?? Catheter was secured to the skin and left to bag drainage.?? Post-procedure CT images were obtained.?? Patient tolerated the procedure well.?? There were no immediate complications. Findings: 4cm thick walled air containing RLQ abscess from which 10cc of pus was aspirated. Sample sent for analysis. Impression: Successful CT guided placement RLQ abscess drain. Recommendations: Please flush drain with 5 cc saline BID. Resident/Fellow:?? Minnie Johnson MD I, Dr. Hurtado, performed the procedure. EBL: 0 5 cc 1% lidocaine administered SQ. Shireen Hurtado MD IMG CT ORDERABLES * Anaerobic Culture (03/22/2016 10:54 AM EDT) Anaerobic Culture No anaerobic organisms isolated [facility] Specimen from abscess (specimen) [place] / Unknown 03/22/2016 10:54 AM EDT 03/22/2016 12:52 PM EDT Comment:RLQ PAIN SEVERAL DAY S POST-OP. HE PRESENTED TO [facility] ED AND UNDERWENT A CT SCAN WITH FINDINGS CONSISTENT WITH RLQ ABSCESS. S/P APPY. Narrative Resulting Agency Comment Spec In Lab Shireen Hurtado MD MICROBIOLOGY - GENER AL ORDERABLES [facility] [place] [address] * (ABNORMAL) Wound Aspirate/Abscess Culture (03/22/2016 10:54 AM EDT) Abscess/Wound Aspirate Culture Many Escherichia coli(A) [facility] Gram Stain Many White Blood Cells seen Many Gram Negative Rods seen (A) [facility] Organism Escherichia coli(A) [facility] Organism Gram Negative Rods(A) [facility] Specimen from abscess (specimen) [place] / Unknown 03/22/2016 10:54 AM EDT 03/22/2016 12:52 PM EDT Comment:RLQ PAIN SEVERAL DAY S POST-OP. HE PRESENTED TO [facility] ED AND UNDERWENT A CT SCAN WITH FINDINGS CONSISTENT WITH RLQ ABSCESS. S/P APPY. Narrative Resulting Agency Comment Spec In Lab Organism Antibiotic Method Susceptibility Escherichia coli Amikacin [facility] METHOD Sensitive Escherichia coli Ampicillin [facility] METHOD Resistant Escherichia coli Ampicillin + Sulbactam [facility] METH OD Resistant Escherichia coli Aztreonam [facility] METHOD Sensitive Escherichia coli Cefazolin [facility] METHOD Resistant Escherichia coli Cefepime [facility] METHOD Sensitive Escherichia coli Ceftazidime [facility] METHOD Sensitive Escherichia coli Ceftriaxone [facility] METHOD Sensitive Escherichia coli Cefuroxime [facility] METHOD Sensitive Escherichia coli Ciprofloxacin [facility] METHOD Resistant Escherichia coli Gentamicin [facility] METHOD Sensitive Escherichia coli Levofloxacin [facility] METHOD Resistant Escherichia coli Meropenem [facility] METHOD Sensitive Escherichia coli Piperacillin/Tazobactam [facility] MET HOD Sensitive Escherichia coli Tetracycline [facility] METHOD Sensitive Escherichia coli Tigecycline [facility] METHOD Sensitive Escherichia coli Tobramycin [facility] METHOD Sensitive Escherichia coli Trimethoprim/Sulfa [facility] METHOD Sensitive Shireen Hurtado MD MICROBIOLOGY - GENER AL ORDERABLES Performing Organization Address City/State/[facility] Co de Phone Number [facility] [place] [address] documented in this encounter Visit Diagnoses Diagnosis Postoperative wound abscess, initial encounter documented in this encounter Administered Medications Inactive Administered Medications - up to 3 most recent administrations Medication Order MAR Action Action Date Dose Rate Site fentaNYL 50 mcg/mL multi-dose injection 25-50 mcg, Intravenous, EVERY 5 MIN PRN, Starting on 03/22/16 at 1126, Until 03/22/16 at 1226, Pain, per unit protocol, - Start dose 50 mcg (reduce dose to 25 mcg if history of sedation sensitivity). - Titration dose 25-50 mcg IV, (based on patient response) every 3 minutes PRN, to maintain procedural pain less than 2 per pain Scale. Maximum dose: 50 mcg/dose, 250 mcg/hour For use in Interventional Radiology (IR) only for procedural sedation with direct provider supervision and verbal order., Angio/IR (Intra-Procedure), Routine Given 03/22/2016 12:10 PM EDT 50 mcg Given 03/22/2016 12:05 PM EDT 50 mcg Given 03/22/2016 12:00 PM EDT 50 mcg lidocaine (XYLOCAINE) 10 mg/mL (1 %) injection 10 mg 10 mg, Subcutaneous, ONCE, 1 dose, On 03/22/16 at 1145, For use in Interventional Radiology (IR) only for procedure with direct provider supervision and verbal order., Angio/IR (Intra-Procedure), Routine Given 03/22/2016 11:45 AM EDT 10 mg sodium chloride 0.9% infusion 100 mL/hr, Intravenous, CONTINUOUS, Starting on 03/22/16 at 1145, Until 03/22/16 at 1311, Day of Surgery (Day of Procedure) New Bag 03/22/2016 11:45 AM EDT 100 mL/hr 100 mL/hr documented in this encounter Care Teams Vinyl Cutter Relationship Specialty Start Date End Date Maximilian Fall MD [address] [place] [address] PCP - General 10/01/11 02/13/21 documented as of this encounter
--- OUTSIDE RECORDS SUMMARY | 2024-06-29 16:05 | XMS_ITS | Encounter Summary ---
Author Organization [facility] Address [facility] [place] [address] Care Team Providers Care Taxicab Dispatcher Name Role Phone Maximilian Fall MD Primary Care Provider [phone] Encounter Details Date Type Department Care Team (Latest Contact Info) Description 02/12/2017 10:14 AM EDT - 02/12/2017 1:50 PM EDT Hospital Encounter [place] [address] Dion Barlow MD [facility] [place] [address] Discharge Disposition: Home Social History Tobacco Use [...] Sign Reading Time Taken Comments Blood Pressure 132/81 02/12/2017 12:33 PM EDT Pulse 81 02/12/2017 12:33 PM EDT Temperature - - Respiratory Rate 19 02/12/2017 12:33 PM EDT Oxygen Saturation 98% 02/12/2017 12:33 PM EDT Inhaled Oxygen Concentration - - Weight 115.2 kg (254 lb) 02/12/2017 10:24 AM EDT Height 193 cm (6' 4) 02/12/2017 10:24 AM EDT Body Mass Index 30.92 02/12/2017 10:24 AM EDT documented in this encounter Discharge Instructions * Discharge Instructions* Kira Quan RN - 02/12/2017 12:37 PM EDT Please call [phone] before 8pm with problems, questions or concerns, after 5pm call the Hospital at [phone] and ask to speak to the Teacher Instrumental business transformation analyst and the explosives mixer operator will contact that person for you. Discharge instructions reviewed with patient who expresses understanding. You may have received medications before and/or [...] foul drainage occurs, please contact your Doctor. * Attachments The following attachments cannot be sent through Care Everywhere. * COLONOSCOPY: POST-OP (OCCITAN) documented in this encounter Medications at Time of Discharge Medication Sig Dispensed Refills Start Date End Date glipiZIDE (GLUCOTROL) 10 mg 24 hr tablet Take 10 mg by mouth daily. folic acid (FOLVITE) 1 mg tabletIndications:Ul cerative colitis Take 1 tablet by mouth daily. 90 tablet 3 11/22/2012 omeprazole (PRILOSEC) 20 mg capsule Take 40 mg by mouth daily. sulfaSALAzine (AZULFIDINE) 500 mg Tablet Take 4 tablets by mouth 2 times daily. 240 tablet 5 05/16/2016 02/22/2019 hydrocortisone (CORTIFOAM) 10 % (80 mg) FoamIndications:Pain in right hip,Bilateral low back pain, with sciatica presence unspecified,Abdomina l pain, unspecified abdominal location,Chronic ulcerative enterocolitis, unspecified complication Place 1 applicator rectally nightly. 90 g 3 11/06/2015 02/18/2017 lisinopril (PRINIVIL;ZESTRIL) 5 mg Tablet Take 5 mg by mouth daily. 05/11/2017 insulin glargine (LANTUS) Solution Inject 50 Units subcutaneously nightly. 05/03/2018 propranolol (INDERAL) 80 mg tablet Take 80 mg by mouth daily. 05/11/2017 fluticasone (FLOVENT) 110 mcg/Actuation inhaler Inhale 2 puffs into the lungs 2 times daily. 05/03/2018 metFORMIN (GLUCOPHAGE) 500 mg tablet 500mg, PO, Twice daily 01/15/200705/11 documented as of this encounter H&P Notes * Doin Barlow MD - 02/12/2017 10:47 AM EDT Gastroenterology and Hepatology Pre-Procedure History and Physical Exam Procedure: Colonoscopy: Indication: UC for restaging and surveillance Patient Active Problem List Diagnosis Code ??? [...] 9:00 AM EDT Office [place] [address] Dion Barlow MD [facility] [place] [address] 09/01/2024 11:20 AM EDT Office Visit Dermatology at [facility] [address] [place] [address] Gómez Mercer MD [facility] DR EDD[place] [address] 09/21/2024 2:45 PM EDT Office Visit [facility] at [facility] [place] [address] Trung Hoyos MD [facility] [place] [address] documented as of this encounter Procedures Procedure Name Priority Date/Time Associated Diagnosis Comments SPECIMEN TO PATHOLOGY Routine 02/12/2017 12:16 PM EDT SPECIMEN TO PATHOLOGY Routine 02/12/2017 12:16 PM EDT SPECIMEN TO PATHOLOGY Routine 02/12/2017 12:16 PM EDT SPECIMEN TO PATHOLOGY Routine 02/12/2017 12:16 PM EDT SURGICAL PATHOLOGY REPORT Routine 02/12/2017 12:15 PM EDT COLONOSCOPY Routine 02/12/2017 11:40 AM EDT COLONOSCOPY FLEXIBLE, WITH BX (WRVU 3.56) 02/12/2017 11:39 AM EDT Ulcerative rectosigmoiditis with rectal bleeding POCT FINGERSTICK GLUCOSE Routine 02/12/2017 10:30 AM EDT POCT GLUCOSE Routine 02/12/2017 10:29 AM EDT documented in this encounter Results * Specimen to Pathology (surgical or derm) (02/12/2017 12:16 PM EDT) AP Specimen 02/12/2017 12:1 6 PM EDT 02/12/2017 12:16 PM EDT [facility] - 02/12/2017 12:16 PM EDT Specimen requisition ordered. ??Separate Pathology report to follow L Karthik Barlow MD PATHOLOGY/[place] [address] * Specimen to Pathology (surgical or derm) (02/12/2017 12:16 PM EDT) AP Specimen 02/12/2017 12:1 6 PM EDT 02/12/2017 12:16 PM EDT Narrative [facility] - 02/12/2017 12:16 PM EDT Specimen requisition ordered. ??Separate Pathology report to follow L Karthik Barlow MD PATHOLOGY/CYTOLOGY O CEE Performing Organization Address [facility]/[place] [address] * Specimen to Pathology (surgical or derm) (02/12/2017 12:16 PM EDT) AP Specimen 02/12/2017 12:1 6 PM EDT 02/12/2017 12:16 PM EDT Narrative [facility] - 02/12/2017 12:16 PM EDT Specimen requisition ordered. ??Separate Pathology report to follow L Karthik Barlow MD PATHOLOGY/CYTOLOGY O CEE Performing Organization Address [facility]/[place] [address] * Specimen to Pathology (surgical or derm) (02/12/2017 12:16 PM EDT) AP Specimen 02/12/2017 12:1 6 PM EDT 02/12/2017 12:16 PM EDT Narrative [facility] - 02/12/2017 12:16 PM EDT Specimen requisition ordered. ??Separate Pathology report to follow L Karthik Barlow MD PATHOLOGY/CYTOLOGY O CEE Performing Organization Address City/[facility]/[place] [address] * Surgical Pathology Report (02/12/2017 12:15 PM EDT) Final Diagnosis [id number] ?Location: 4T; EA07; A The signing pathologist has (i) examined the relevant preparation(s) for the specimen(s) and (ii) rendered or confirmed the diagnosis(es). . ?Surgical Pathology DIAGNOSIS A - Right colon, ??biopsy: Chronic inactive colitis, negative for dysplasia. B - Descending colon, ?? biopsy: Chronic inactive colitis, negative for dysplasia. C - Descending colon, ?? biopsy: Colonic mucosa with patchy changes consistent with hyperplastic polyp. D - Rectosigmoid colon, ?? biopsy: Chronic moderately active colitis, negative for dysplasia. See discussion. Fragment of mucosa with changes cosistent with hyperplastic polyp. CR-PX Electronically signed by: ??Mery HARVEY PhD, Sree Lo Verified: ??02/13/2017 ?Pathologist DISCUSSION Active colitis was seen in a single fragment of mucosa, given the endoscopic note describing diverticulosis, the findings may not be related to IBD and may instead by the result of diverticulosis. Clinical correlation is recommended. CLINICAL INFORMATION Specimen Submitted: A - Non-targeted biopsies - R colon B - Non-targeted biopsies - descending colon C - Targeted biopsies - descending colon (45cm) - hyperplastic polyps? D - Non-targeted biopsies - rectosigmoid Clinical History: 66-year-old with left sided UC for surveillance Clinical Diagnosis: Same SPECIMEN PROCESSING A - Labeled/Fixative : Non-target biopsies-right colon, formalin. Quantity/Size: Four, 0.2-0.3 cm. Tissue Description: ??Soft, stephen-pink tissue ??. Sections/Process ing: (T1) B - Labeled/Fixative : Non-target biopsies-descend ing colon, formalin. Quantity/Size: Multiple, 0.2-0.5 cm. Tissue Description: ??Soft, yellow-stephen tissue ??. Sections/Process ing: (T2) . SPECIMEN PROCESSING C - Labeled/Fixative : Targeted biopsies-descend ing colon (45 cm)-hyperplastic polyps?, formalin. Quantity/Size: Two, 0.2 and 0.4 cm. Tissue Description: ??Soft, yellow-stephen tissue ??. Sections/Process ing: (T1) D - Labeled/Fixative : Non-targeted biopsies-rectosi gmoid, formalin. Quantity/Size: Multiple, 0.2-0.4 cm. Tissue Description: ??Soft, yellow-stephen tissue ??. Sections/Process ing: (T2) ??ejr 02/13/2017 4:23 PM EDT [facility] GI Biopsy 02/12/2017 12:1 5 PM EDT 02/12/2017 12:15 PM EDT GI Biopsy 02/12/2017 12:1 5 PM EDT 02/12/2017 12:15 PM EDT GI Biopsy 02/12/2017 12:1 5 PM EDT 02/12/2017 12:15 PM EDT GI Biopsy 02/12/2017 12:1 5 PM EDT 02/12/2017 12:15 PM EDT L Karthik Barlow MD PATHOLOGY/CYTOLOGY O RDERABLES [facility] [place] [address] * COLONOSCOPY (02/12/2017 11:40 AM EDT) COLONOSCOPY [facility] ___ Procedure Date: 02/12/2017 11:40 AM ? Patient Name: Brian Rodriguez ? Date of : 1950 ? Age: 66 ? Order #: [id number] ? Instrument Name: [id number] ? ___ Procedure: ? Colonoscopy Indications: ? High risk colon cancer surveillance: ? Ulcerative colitis Patient Profile: ? This is a 66 year old male. This ? patient has left-sided ulcerative ? colitis on sulfasalazine and ? Cortifoam and is experiencing mild ? symptoms. Providers: ? Davina Barlow MD, Vandana Love ? RONY Mckeon, Sonal Amdahl, ? Miniature Set Constructor Referring MD: ?Maximilian Fall MD Medicines: ? Midazolam 4 mg IV, [...] preparation was evaluated using ? the BBPS ([place] Bowel Preparation ? Scale) with scores of: Right Colon = ? 2 (minor amount of residual staining, ? small fragments of stool and/or ? opaque liquid, but mucosa seen well), ? Transverse Colon = 2 (minor amount of ? residual staining, small fragments of ? stool and/or opaque liquid, but ? mucosa seen well) and Left Colon = 2 ? (minor amount of residual staining, ? small fragments of stool and/or ? opaque liquid, but mucosa seen well). ? The total BBPS score equals 6. The ? quality of the bowel preparation was ? good. Scope withdrawal time was 14 ? minutes. ? Findings: ? The perianal and digital rectal examinations were ? normal. ? The terminal ileum appeared normal. ? Inflammation characterized by erosions, erythema and ? loss of vascularity was found in a patchy ? distribution. There were circumferential changes in ? the distal rectum and in few patches around 20 cm ? within the sigmoid colon. The rest of the colon was ? normal. It was mild in severity, and when compared to ? previous examinations, the findings are worsened. ? Several biopsies were taken proximal to the splenic ? flexure to evaluate for extent of microscopic ? colitis. Eight biopsies were obtained with cold ? forceps for surveillance randomly each from the ? descending and rectosigmoid colon. ? Multiple small and large-mouthed diverticula were ? found from sigmoid to ascending colon. ? Two small (2-3 mm) discrete polypoid lesions in the ? descending colon (45 cm) with a pit pattern ? consistent with hyperplastic change. Targeted ? biopsies taken. ? Impression: ?- The examined portion of the ileum ? was normal. ? - Left-sided ulcerative colitis. Mild ? inflammation in a patchy distribution ? in the rectosigmoid. This is ? consistent with partial treatment ? from topical therapy. The findings ? are mild but slightly worsened ? compared to previous examinations. ? - Eight biopsies were obtained each ? from the descending and rectosigmoid ? colon for surveillance and from the R ? colon to evaluate for extent of the ? colitis. ? - Targeted biopsies of likely ? hyperplastic diminutive polyps in the ? descending colon. ? - Moderate diverticulosis from ? sigmoid to ascending colon. Recommendation: ?- Recommend nightly Cortifoam for two ? weeks, then every other night for two ? weeks, then back to 2-3 times per ? week. If no improvement, would add ? morning Canasa suppositories. ? - Continue sulfasalazine. ? - Await pathology results. ? - Follow-up in IBD Clinic ? Attending Participation: ? I personally performed the entire procedure. ? I was present during the intraservice time as ? documented by the sedation RN. ? _ L. Karthik Barlow MD 02/12/2017 12:30:33 PM Number of Addenda: 0 Note Initiated On: 02/12/2017 11:40 AM PROVATION 02/12/2017 11:4 0 AM EDT Maximilian Fall MD GENERAL SURGICAL ORD ERABLES [employer]OVATION * POCT Fingerstick Glucose (02/12/2017 10:30 AM EDT) Glucose, POC 132 60 - 199 mg/dl 02/12/2017 10:3 0 AM EDT L Karthik Barlow MD POINT OF CARE TEST O RDERABLES * POCT Glucose (02/12/2017 10:29 AM EDT) Glucose, POC 132 65 - 199 mg/dL [facility] Comment: Supplemental ranges: <140 mg/dL before meals <180 mg/dL all other times of the day Blood specimen (specimen) 02/12/2017 10:29 AM EDT 02/12/2017 10:29 AM EDT L Karthik Barlow MD POINT OF CARE TEST O RDERABLES [facility] [place] [address] documented in this encounter Visit Diagnoses Not on filedocumented in this encounter Administered Medications Inactive Administered Medications - up to 3 most recent administrations Medication Order MAR Action Action Date Dose Rate Site lactated ringers infusion 100 mL/hr, Intravenous, CONTINUOUS, Starting on Tresa 02/12/17 at 1045, Until Tresa 02/12/17 at 1244, Endoscopy (Day of Procedure) New Bag 02/12/2017 10:31 AM EDT 100 mL/hr 100 mL/hr documented in this encounter Active and Recently Administered Medications Times are shown in EDT. Continuous Medication Order 02/10/2017 02/11/2017 02/12/2017 lactated ringers infusion (CANCELED) 100 mL/hr, Intravenous, CONTINUOUS, Starting on Tresa 02/12/17 at 1045, Until Tresa 02/12/17 at 1244, Endoscopy (Day of Procedure) 1031 (New Bag - Prov ider: Mily Swartz RN) PRN Medication Order 02/10/2017 02/11/2017 02/12/2017 fentaNYL 50 mcg/mL multi-dose injection (CANCELED) ONCE PRN, Starting on Tresa 02/12/17 at 1141, Until Tresa 02/12/17 at 1550, Intra-Operative (Intra-Procedure), Routine 1141 (Given - Provid er: Vandana Mckeon RN)1144 (Given - Provider: Vandana Mckeon RN)1147 (Given - Provider: Vandana Mckeon RN)1151 (Given - Provider: Vandana Mckeon RN)1154 (Given - Provider: Vandana Mckeon RN) midazolam (PF) (VERSED) 1 mg/mL multi-dose injection (CANCELED) ONCE PRN, Starting on Tresa 02/12/17 at 1141, Until Tresa 02/12/17 at 1550, Intra-Operative (Intra-Procedure), Routine 1141 (Given - Provid er: Vandana Mckeon RN)1144 (Given - Provider: Vandana Mckeon RN)1147 (Given - Provider: Vandana Mckeon RN)1151 (Given - Provider: Vandana Mckeon RN)1154 (Given - Provider: Vandana Mckeon RN) documented in this encounter Care Teams Taxicab Dispatcher Relationship Specialty Start Date End Date Maximilian Fall MD [address] [place] [address] PCP - General 10/01/11 02/13/21 documented as of this encounter
--- OUTSIDE RECORDS SUMMARY | 2024-06-29 16:05 | XMS_ITS | Encounter Summary ---
Author Organization [facility] [place] [address] Care Team Providers Care Sand Drier Name Role Phone Maximilian Fall MD Primary Care Provider [phone] Encounter Details Date Type Department Care Team (Late st Contact Info) Description 11/10/2018 Telephone Gastroenterology at [facility] [place] [address] Rachel Corral Social History Tobacco Use Types Packs/Day Years [...] Telephone Encounter - Bethany Trivedi RN - 11/10/2018 12:03 PM EST Call placed to Brian regarding stool study results. Results scanned into system. Calpro: 957 C-diff negative He is feeling better on treatment prescribed by Farideh at his recent visit * Telephone Encounter - Rachel Corral - 11/10/2018 10:09 AM EST Pt called today a pt of DR. Weinberg to get the results from the stool samples that he brought to his local hospital. He would like someone to call him to give him the results. Routing to the IBD nurse pool documented in this encounter Plan of Treatment Upcoming Encounters Date Type Department Care Team (Late st Contact Info) Description 08/15/2024 9:00 AM EDT Office Visit [place] [address] Dion Barlow MD [facility] [place] [address] 09/01/2024 11:20 AM EDT Office Visit Dermatology at [facility] [address] [place] [address] Gómez Mercer MD [facility] [place] [address] 09/21/2024 2:45 PM EDT Office Visit Pain and Spine Center at [place] [phone] Trung Hoyos MD [facility] [place] [address] documented as of this encounter Visit Diagnoses Not on filedocumented in this encounter Care Teams Sand Drier Relationship Specialty Start Date End Date Maximilian Fall MD [address] [place] [address] PCP - General 10/01/11 02/13/21 documented as of this encounter
--- OUTSIDE RECORDS SUMMARY | 2024-06-29 16:05 | XMS_ITS | Encounter Summary ---
Author Organization [facility] [place] [address] Care Team Providers Care Byproducts Maker Name Role Phone Maximilian Fall MD Primary Care Provider [phone] Reason for Visit * Reason Onset Date Comments Medication Refill 02/18/2017 Encounter Details Date Type Department Care Team (Late st Contact Info) Description 02/18/2017 Ref[place] [address] Bethany Trivedi, RONY Pain in right hip; Chronic ulcerative enterocolitis, unspecified complication Social History Tobacco Use Types Packs/Day [...] 9:00 AM EDT Office [place] [address] Dion Barlow MD [facility] [place] [address] 09/01/2024 11:20 AM EDT Office Visit Dermatology at [facility] [address] [place] [address] Gómez Mercer MD [facility] DR EDDIE [place] [address] 09/21/2024 2:45 PM EDT Office Visit [place] [address] Trung Hoyos MD [facility] [place] [address] documented as of this encounter Visit Diagnoses Diagnosis Pain in right hip Pain in joint, pelvic region and thigh Chronic ulcerative enterocolitis, unspecified complication documented in this encounter Care Teams Byproducts Maker Relationship Specialty Start Date End Date Maximilian Fall MD [address] [place] [address] PCP - General 10/01/11 02/13/21 documented as of this encounter
--- OUTSIDE RECORDS SUMMARY | 2024-06-29 16:05 | XMS_ITS | Encounter Summary ---
Author Organization [facility] [place] [address] Care Team Providers Care Wireless Team Member Name Role Phone Maximilian Fall MD Primary Care Provider [phone] Reason for Visit * Reason Onset Date Comments Medication Refill 05/03/2018 Encounter Details Date Type Department Care Team (Late st Contact Info) Description 05/03/2018 [place] [address] Bethany Trivedi, RN Social History Tobacco Use Types Packs/Day [...] 9:00 AM EDT Office [place] [address] Dion Barlow MD [facility] [place] [address] 09/01/2024 11:20 AM EDT Office Visit Dermatology at [facility] [address] [place] [address] Gómez Mercer MD [facility] DR [place] [address] 09/21/2024 2:45 PM EDT Office Visit Pain and Spine Center at [facility] [address] Trung Hoyos MD [facility] [place] [address] documented as of this encounter Visit Diagnoses Not on filedocumented in this encounter Care Teams Wireless Team Member Relationship Specialty Start Date End Date Maximilian Fall MD [address] [place] [address] PCP - General 10/01/11 02/13/21 documented as of this encounter
--- OUTSIDE RECORDS SUMMARY | 2024-06-29 16:05 | XMS_ITS | Encounter Summary ---
Author Organization [facility] [place] [address] Care Team Providers Care Low Pressure Boiler Tender Name Role Phone Maximilian Fall MD Primary Care Provider [phone] Encounter Details Date Type Department Care Team (Late st Contact Info) Description 02/11/2019 Telephone [place] [address] Rachel Corral Social History Tobacco Use Types [...] encounter Miscellaneous Notes * Telephone Encounter - Rachel Corral - 02/11/2019 10:16 AM EDT Brian Rodriguez [id number] Diagnosis: Banks 1. Have you ever had a colonoscopy before? [x] YES [] NO If Yes, Date of Last Banks:_02/12/17 If yes, did you have any problems with the procedure? [] YES [x] NO Explain: What type of sedation was used: IV 2. Do you take any Blood Thinners? [] YES [x] NO If Yes, type: 3. Do you have a Pacemaker or Defibrillator device? [] YES [x] NO If Yes send inLingvist message to [facility] ENDO DEVICE CHECK 4. Are you a diabetic? [x] YES [] NO If yes, controlled by meds or diet? ____Both 5. Do you have any Allergies to Eggs, Latex or Medications? [x] YES See EDH 6. Do you take any Oral Iron Supplements (Including multi vitamins)? [] YES [x] NO 7. Do you have a history of three or more abdominal surgeries? [] YES [x] NO 8. Have you had a problem with sedation or anesthesia? [] YES [x] NO 9. Do you have a c-pap machine or oxygen tank? [] C-PAP [] Oxygen [x] NO 10. Do you take prescription narcotic pain medications? [] YES [x] NO 11. You must have a responsible alliance party stay at the facility during your procedure and drive you home? [x] YES 12. Is there any other information you would like to give us to aid in scheduling? Height: __6'4____ Weight:___252____ BMI: __30.7__ Age:68 y.o. documented in this encounter Plan of Treatment Upcoming Encounters Date Type Department Care Team (Late st Contact Info) Description 08/15/2024 9:00 AM EDT Office [place] [address] Dion Barlow MD [facility] [place] [address] 09/01/2024 11:20 AM EDT Office Visit Dermatology at [facility] [address] [place] [phone] Gómez Mercer MD [facility] DR EDDIE [place] [address] 09/21/2024 2:45 PM EDT Office Visit [place] [address] Trung Hoyos MD [facility] [place] [address] documented as of this encounter Visit Diagnoses Not on filedocumented in this encounter Care Teams Low Pressure Boiler Tender Relationship Specialty Start Date End Date Maximilian Fall MD [address] [place] [address] PCP - General 10/01/11 02/13/21 documented as of this encounter
--- OUTSIDE RECORDS SUMMARY | 2024-06-29 16:05 | XMS_ITS | Encounter Summary ---
Author Organization [facility] [place] [address] Care Team Providers Care Loft Worker Head Name Role Phone Maximilian Fall MD Primary Care Provider [phone] Reason for Visit * Reason Onset Date Comments Medication Refill 03/26/2018 Encounter Details Date Type Department Care Team (Late st Contact Info) Description 03/26/2018 Refill [place] [address] Bethany Trivedi RN Social History Tobacco Use [...] as of this encounter Miscellaneous Notes * Addendum Note - Bethany Trivedi RN - 03/26/2018 4:36 PM EDTAddended by: BETHANY TRIVEDI on: 03/26/2018 04:36 PM Modules accepted: Orders documented in this encounter Plan of Treatment Upcoming Encounters Date Type Department Care Team (Late st Contact Info) Description 08/15/2024 9:00 AM EDT Office [place] [address] Dion Barlow MD [facility] [place] [address] 09/01/2024 11:20 AM EDT Office Visit Dermatology at [facility] [address] [place] [address] Gómez Mercer MD [facility] DR EDD[place] [address] 09/21/2024 2:45 PM EDT Office Visit [facility] at [facility] [place] [address] [place] [address] Trung Hoyos MD [facility] [place] [address] documented as of this encounter Visit Diagnoses Not on filedocumented in this encounter Care Teams Loft Worker Head Relationship Specialty Start Date End Date Maximilian Fall MD [address] [place] [address] PCP - General 10/01/11 02/13/21 documented as of this encounter
--- OUTSIDE RECORDS SUMMARY | 2024-06-29 16:05 | XMS_ITS | Encounter Summary ---
Author Organization [facility] [place] [address] Care Team Providers Care Internet Systems Administrator Name Role Phone Maximilian Fall MD Primary Care Provider [phone] Encounter Details Date Type Department Care Team (Latest Contact Info) Description 02/22/2019 2:13 PM EDT - 02/22/2019 5:26 PM EDT Hospital Encounter [place] [address] Dion Barlow MD [facility] DR [place] [address] Discharge Disposition: Home Social History Tobacco Use [...] Sign Reading Time Taken Comments Blood Pressure 144/85 02/22/2019 5:10 PM EDT Pulse 73 02/22/2019 4:55 PM EDT Temperature 36.5 ??C (97.7 ??F) 02/22/2019 2:55 PM ED T Respiratory Rate 22 02/22/2019 4:55 PM EDT Oxygen Saturation 94% 02/22/2019 5:15 PM EDT Inhaled Oxygen Concentration - - Weight 113.9 kg (251 lb) 02/22/2019 3:00 PM EDT Height - - Body Mass Index 30.55 11/02/2018 1:23 PM EST documented in this encounter Discharge Instructions * Discharge Instructions* Gabrielle Iglesias RN - 02/22/2019 5:05 PM EDT Please call [phone] before 8pm Mon-Fri with problems, questions or concerns. If you call after 8pm or on weekends, call the Hospital at [phone] and ask to speak to the Distributed Energy Systems Consultant consulting psychologist and the electrostatic paint operator will contact that person for you. * Attachments The following attachments cannot be sent through Care Everywhere. * Colonoscopy: Post-op (Mauritian) * Colon Polyps (Mauritian) documented in this encounter Medications at Time [...] 9:00 AM EDT Office [place] [address] Dion Barlow MD [facility] [place] [address] 09/01/2024 11:20 AM EDT Office Visit Dermatology at [facility] [address] [place] [address] Gómez Mercer MD [facility] DR EDDIE REARDON[place] [address] 09/21/2024 2:45 PM EDT Office Visit [place] [address] Trung Hoyos MD [facility] PA[place] [address] documented as of this encounter Procedures Procedure [...] PM EDT 02/22/2019 4:56 PM EDT Narrative [facility] - 02/22/2019 4:56 PM EDT Specimen requisition ordered. ??Separate Pathology report to follow L Karthik Barlow MD PATHOLOGY/CYTOLOGY O CEE Performing Organization Address [facility] [place] [address] * Specimen to Pathology (02/22/2019 4:56 PM EDT) AP Specimen 02/22/2019 4:56 PM EDT 02/22/2019 4:56 PM EDT Narrative [facility] - 02/22/2019 4:56 PM EDT Specimen requisition ordered. ??Separate Pathology report to follow L Karthik Barlow MD PATHOLOGY/CYTOLOGY O CEE Performing Organization Address [facility] [place] [address] * Specimen to Pathology (02/22/2019 4:56 PM EDT) AP Specimen 02/22/2019 4:56 PM EDT 02/22/2019 4:56 PM EDT Narrative [facility] - 02/22/2019 4:56 PM EDT Specimen requisition ordered. ??Separate Pathology report to follow L Karthik Barlow MD PATHOLOGY/CYTOLOGY O CEE Performing Organization Address [facility] [place] [address] * Specimen to Pathology (02/22/2019 4:56 PM EDT) AP Specimen 02/22/2019 4:56 PM EDT 02/22/2019 4:56 PM EDT Narrative [facility] - 02/22/2019 4:56 PM EDT Specimen requisition ordered. ??Separate Pathology report to follow L Karthik Barlow MD PATHOLOGY/[place] [address] * Specimen to Pathology (02/22/2019 4:56 PM EDT) AP Specimen 02/22/2019 4:56 PM EDT 02/22/2019 4:56 PM EDT Narrative [facility] - 02/22/2019 4:56 PM EDT Specimen requisition ordered. ??Separate Pathology report to follow L Karthik Barlow MD PATHOLOGY/CYTOLOGY O CEE Performing Organization Address City/[facility]/[place] [address] * Specimen to Pathology (02/22/2019 4:56 PM EDT) AP Specimen 02/22/2019 4:56 PM EDT 02/22/2019 4:56 PM EDT Narrative [facility] - 02/22/2019 4:56 PM EDT Specimen requisition ordered. ??Separate Pathology report to follow L Karthik Barlow MD PATHOLOGY/CYTOLOGY O CEE Performing Organization Address City/[facility]/[place] [address] * Specimen to Pathology (02/22/2019 4:56 PM EDT) AP Specimen 02/22/2019 4:56 PM EDT 02/22/2019 4:56 PM EDT Narrative [facility] - 02/22/2019 4:56 PM EDT Specimen requisition ordered. ??Separate Pathology report to follow L Karthik Barlow MD PATHOLOGY/CYTOLOGY O RDMELISSA Performing Organization Address City/[facility]/[place] [address] * Specimen to Pathology (02/22/2019 4:56 PM EDT) AP Specimen 02/22/2019 4:56 PM EDT 02/22/2019 4:56 PM EDT Narrative [facility] - 02/22/2019 4:56 PM EDT Specimen requisition ordered. ??Separate Pathology report to follow L Karthik Barlow MD PATHOLOGY/CYTOLOGY O CEE [facility] [place] [address] * Surgical Pathology Report (02/22/2019 4:23 PM EDT) Final Diagnosis [id number] ? Location: 4T; EA06; A The signing [...] HARVEY, Ana Verified: ??02/26/2019 ?Pathologist Performed at: ??-[facility] Dept. of Pathology, [place], [place] CLINICAL INFORMATION Specimen Submitted: A - [...] labeled H1-H2. ??apb 02/26/2019 4:24 PM EDT [facility] GI Biopsy 02/22/2019 4:23 [...] EDT L Karthik Barlow MD PATHOLOGY/CYTOLOGY O DANIELERAOMAR [facility] [place] [address] * COLONOSCOPY (02/22/2019 3:57 PM EDT) COLONOSCOPY [facility] Endoscopy ___ Procedure Date: 02/22/2019 3:57 PM ? Patient Name: Brian Rodriguez ? Date of : 1950 ? Age: 68 ? Order #: [id number] ? Instrument Name: [id number] ? ___ Procedure: ? Colonoscopy Indications: ? High risk colon cancer surveillance: ? Ulcerative colitis Patient Profile: ? This is a 68 year old male. This ? patient has left-sided ulcerative ? colitis, is taking sulfasalazine and ? cortenemas and is experiencing mild ? symptoms. Providers: ? Dion. Karthik Barlow MD, Alannah Singletary, ? RN, [...] preparation was evaluated using ? the BBPS (Eckert Bowel Preparation ? Scale) with scores of: [...] multi-dose injection (CANCELED) ONCE PRN, Starting on 02/22/19 at 1610, Until Thu02/22/19 at 1926, Intra-Operative (Intra-Procedure), Routine 1610 (Given - Provid er: Alannah Singletary RN)1613 (Given - Provider: Alannah Singletary RN)1620 (Given - Provider: Alannah Singletary, RONY)1627 (Given - Provider: Alannah Singletary RN) midazolam (PF) (VERSED) multi-dose injection (CANCELED) ONCE PRN, Starting on Thu02/22/19 at 1610, Until Thu02/22/19 at 1926, Intra-Operative (Intra-Procedure), Routine 1610 (Given - Provid er: Alannah Singletary RN)1613 (Given - Provider: Alannah Singletary, RONY)1620 (Given - Provider: Alannah Singletary, RN)1628 (Given - Provider: Alannah Singletary RN) documented in this encounter Care Teams Internet Systems Administrator Relationship Specialty Start Date End Date Maximilian Fall MD [address] [place] [address] PCP - General 10/01/11 02/13/21 documented as of this encounter
--- OUTSIDE RECORDS SUMMARY | 2024-06-29 16:05 | XMS_ITS | Encounter Summary ---
Author Organization [facility] [place] [address] Care Team Providers Care Technical Editor Name Role Phone Maximilian Fall MD Primary Care Provider [phone] Encounter Details Date Type Department Care Team (Late st Contact Info) Description 03/26/2018 Tele[place] [phone] Bethany Trivedi RN Social History Tobacco Use [...] Telephone Encounter - Bethany Trivedi RN - 03/26/2018 4:21 PM EDT Brian calls back. He is having difficulty getting Cortifoam because it is on associate sales representative back order. Has been diarrhea and bleeding and usually the Cortifoam helps. Will send in for Hydrocortisone enema * Telephone Encounter - Bethany Trivedi RN - 03/26/2018 4:08 PM EDT Call placed to Brian in response to a message that he called to discus a new medication that prescribed by Dr. Barlow. No answer, no voicemail documented in this encounter Plan of Treatment Upcoming Encounters Date Type Department Care Team (Late st Contact Info) Description 08/15/2024 9:00 AM EDT Office [place] [address] Dion Barlow MD [facility] [place] [address] 09/01/2024 11:20 AM EDT Office Visit Dermatology at [place] [address] [place] [address] Gómez Mercer MD [facility] [address] 09/21/2024 2:45 PM EDT Office Visit Pain and Spine Center at [place] [phone] Trung Hoyos MD [facility] [place] [address] documented as of this encounter Visit Diagnoses Not on filedocumented in this encounter Care Teams Technical Editor Relationship Specialty Start Date End Date Maximilian Fall MD [address] [facility] [place] [address] PCP - General 10/01/11 02/13/21 documented as of this encounter
--- OUTSIDE RECORDS SUMMARY | 2024-06-29 16:05 | XMS_ITS | Encounter Summary ---
Author Organization [facility] Address [facility] [place] [address] Care Team Providers Care Personal Lines Account Manager Name Role Phone Maximilian Fall MD Primary Care Provider Encounter Details Date Type Department Care Team (Late st Contact Info) Description 02/12/2017 11:15 AM EDT - 02/12/2017 12:00 PM EDT Surgery [place] [address] Franky Barlow MD [facility] [place] [address] COLONOSCOPY FLEXIBLE, WITH BX (WRVU 3.56) Social [...] Sign Reading Time Taken Comments Blood Pressure 118/72 02/12/2017 12:00 PM EDT Pulse 80 02/12/2017 12:00 PM EDT Temperature - - Respiratory Rate 13 02/12/2017 12:00 PM EDT Oxygen Saturation 95% 02/12/2017 12:00 PM EDT Inhaled Oxygen Concentration - - Weight 115.2 kg (254 lb) 02/12/2017 10:24 AM EDT Height 193 cm (6' 4) 02/12/2017 10:24 AM EDT Body Mass Index 30.92 02/12/2017 10:24 AM EDT documented in this encounter Discharge Instructions * Discharge Instructions* Kira Quan RN - 02/12/2017 12:37 PM EDT Please call [phone] before 8pm with problems, questions or concerns, after 5pm call the Hospital at [phone] and ask to speak to the Reversal Print Inspector admissions rn and the paper wrapping machine operator will contact that person for [...] sent through Care Everywhere. * COLONOSCOPY: POST-OP ([place]) documented in this encounter Medications at Time [...] as of this encounter H&P Notes * Franky Barlow MD - 02/12/2017 10:47 AM EDT [...] 9:00 AM EDT Office Visit [place] [address] Franky Barlow MD [facility] [place] [address] 09/01/2024 11:20 AM EDT Office Visit Dermatology at [address] [place] [address] Gómez Mercer MD [facility] [address] [place] [address] 09/21/2024 2:45 PM EDT Office Visit Pain and Spine Center at [facility] [place] [address] Trung Hoyos MD [facility] [place] [address] documented as of this encounter Procedures Procedure [...] 6 PM EDT 02/12/2017 12:16 PM EDT [facility] - 02/12/2017 12:16 PM EDT Specimen requisition ordered. ??Separate Pathology report to follow L Karthik Barlow MD PATHOLOGY/CYTOLOGY O CEE Performing Organization Address City/[facility]/[place] [address] * Specimen to Pathology (surgical or derm) (02/12/2017 12:16 PM EDT) AP Specimen 02/12/2017 12:1 6 PM EDT 02/12/2017 12:16 PM EDT Narrative [facility] - 02/12/2017 12:16 PM EDT Specimen requisition ordered. ??Separate Pathology report to follow L Karthik Barlow MD PATHOLOGY/CYTOLOGY O CEE Performing Organization Address [facility]/[place] [address] * Specimen to Pathology (surgical or derm) (02/12/2017 12:16 PM EDT) AP Specimen 02/12/2017 12:1 6 PM EDT 02/12/2017 12:16 PM EDT Narrative [facility] - 02/12/2017 12:16 PM EDT Specimen requisition ordered. ??Separate Pathology report to follow L Karthik Barlow MD PATHOLOGY/CYTOLOGY O CEE Performing Organization Address City/[facility]/ZIP Co de Phone Number [facility] [place] [address] * Specimen to Pathology (surgical or derm) (02/12/2017 12:16 PM EDT) AP Specimen 02/12/2017 12:1 6 PM EDT 02/12/2017 12:16 PM EDT Narrative [facility] - 02/12/2017 12:16 PM EDT Specimen requisition ordered. ??Separate Pathology report to follow L Karthik Barlow MD PATHOLOGY/CYTOLOGY O CEE [facility] [place] [address] * Surgical Pathology Report (02/12/2017 12:15 PM EDT) Final Diagnosis [id number] ?Location: 4T; EA07; A The signing pathologist [...] ing: (T2) ??ejr 02/13/2017 4:23 PM EDT [facility] GI Biopsy 02/12/2017 12:1 5 PM EDT 02/12/2017 12:15 PM EDT GI Biopsy 02/12/2017 12:1 5 PM EDT 02/12/2017 12:15 PM EDT GI Biopsy 02/12/2017 12:1 5 PM EDT 02/12/2017 12:15 PM EDT GI Biopsy 02/12/2017 12:1 5 PM EDT 02/12/2017 12:15 PM EDT L Karthik Barlow MD PATHOLOGY/CYTOLOGY O RDERABLES [facility] [place] [address] * COLONOSCOPY (02/12/2017 11:40 AM EDT) COLONOSCOPY [facility] Endoscopy ___ Procedure Date: 02/12/2017 11:40 AM ? Patient Name: Brian Rodriguez ? Date of : 1950 ? Age: 66 ? Order #: [id number] ? Instrument Name: [id number] ? ___ Procedure: ? Colonoscopy Indications: ? High risk colon cancer surveillance: ? Ulcerative colitis Patient Profile: ? This is a 66 year old male. This ? patient has left-sided ulcerative ? colitis on sulfasalazine and ? Cortifoam and is experiencing mild ? symptoms. Providers: ? L. Karthik Barlow MD, Vandana Love ? RONY Mckeon, Sonal Finefranky, ? Java Mobile Developer Referring MD: ?Maximilian Fall MD Medicines: ? [...] preparation was evaluated using ? the BBPS (Arjay Bowel Preparation ? 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 documented in this encounter Administered Medications Inactive Administered Medications - up to 3 most recent administrations Medication Order MAR Action Action Date Dose Rate Site fentaNYL 50 mcg/mL multi-dose injection ONCE PRN, Starting on Tresa 02/12/17 at 1141, Until Tresa 02/12/17 at 1550, Intra-Operative (Intra-Procedure), Routine Given 02/12/2017 11:54 AM EDT 25 mcg Given 02/12/2017 11:51 AM EDT 25 mcg Given 02/12/2017 11:47 AM EDT 25 mcg lactated ringers infusion 100 mL/hr, Intravenous, CONTINUOUS, Starting on Tresa 02/12/17 at 1045, Until Tresa 02/12/17 at 1244, Endoscopy (Day of Procedure) New Bag 02/12/2017 10:31 AM EDT 100 mL/hr 100 mL/hr midazolam (PF) (VERSED) 1 mg/mL multi-dose injection ONCE PRN, Starting on Tresa 02/12/17 at 1141, Until Tresa 02/12/17 at 1550, Intra-Operative (Intra-Procedure), Routine Given 02/12/2017 11:54 AM EDT 0.5 mg Given 02/12/2017 11:51 AM EDT 0.5 mg Given 02/12/2017 11:47 AM EDT 1 mg documented in this encounter [...] injection (CANCELED) ONCE PRN, Starting on Tresa 17 at 1141, Until Tresa 02/12/17 at 1550, Intra-Operative (Intra-Procedure), Routine 1141 (Given - Provid er: Vandana Mckeon RN)1144 (Given - Provider: Vandana Mckeon RN)1147 (Given - Provider: Vandana Mckeon RN)1151 (Given - Provider: aVndana Mckeon RN)1154 (Given - Provider: Vandana Mckeon RN) documented in this encounter Care Teams Personal Lines Account Manager Relationship Specialty Start Date End Date Maximilian Fall MD [address] [place] [address] PCP - General 10/01/11 02/13/21 documented as of this encounter
--- OUTSIDE RECORDS SUMMARY | 2024-06-29 16:05 | XMS_ITS | Encounter Summary ---
Author Organization [facility] [place] [address] Care Team Providers Care Goldsmith Apprentice Name Role Phone Maximilian Fall MD Primary Care Provider Reason for Visit * Reason Comments Follow-up Encounter Details Date Type Department Care Team (Late st Contact Info) Description 12/04/2015 3:30 PM EST Office [place] [address] Marcelle Weinberg LAW RESEARCHER [facility] [address] Other ulcerative colitis Social History Tobacco Use Types Packs/Day Years [...] Sign Reading Time Taken Comments Blood Pressure 141/79 12/04/2015 3:03 PM EST Pulse 91 12/04/2015 3:03 PM EST Temperature - - Respiratory Rate - - Oxygen Saturation - - Inhaled Oxygen Concentration - - Weight 115.2 kg (254 lb) 12/04/2015 3:03 PM EST shoes Height 193 cm (6' 4) 12/04/2015 3:03 PM EST Body Mass Index 30.92 12/04/2015 3:03 PM EST documented in this encounter Patient Instructions * Patient Instructions* Marcelle Weinberg, JAZMINE - 12/04/2015 3:32 PM EST - Cortifoam enema every night x 2 weeks; then once every other night x 2 weeks; 3x/ week x 2 weeks then off. - stay on sulfasalazine 4 tabs twice daily - folic acid 1 tab daily documented in this encounter Progress Notes * Marcelle Weinberg APRN - 12/04/2015 3:09 PM EST Patient Active Problem List Diagnosis ??? Ulcerative colitis Overview Note: ?? Colonoscopy 04/08/10 (Dr. Gomes [facility]) - inflammation only within the rectum and sigmoid; extent of the exam was to the hepatic flexure; biopsies proximal to the sigmoid nl ?? Repeat exam 11/27/11 ([facility] mildly active colitis in the sigmoid colon [...] Note: ??? Hydrocele ??? Asthma INTERVAL HISTORY: Naya returns for f/u. Last seen 11/06. UC- seen on 11/06 due to increased GI sx's, (watery diarrhea and crampy abdominal pain). I gave him Cortifoam enema q hs but instead of doing this nightly for 4 weeks, only did nightly dose x1 week then went to every other night. He increased his imodium instead to TID 2 weeks ago due to the diarrhea. He remains on sulfasalazine 4 tabs BID and folic acid once daily Just the past 2 weeks, noted improvement in sx's. Having BM 3- 4x/day, mostly formed stool, no bleeding. No urgency. No nocturnal bm. No abdominal pain except this morning, felt crampy lower abdominal pain then has to move his bowels. Still formed stool. [place] better after defecation. Eating well. Weight stable. No n/v. No more urinary sx's, no dysuria since we started Cipro ( took it x 7 days) Low back, right hip pain-seen PCP, he had an MRI and was told he has slip disc. He has a f/u withhim in 2 days. Review of Systems Constitutional: Negative for fever, chills and appetite change. HENT: Negative for mouth sores. Eyes: Negative for pain and redness. Respiratory: Negative for shortness of breath. Cardiovascular: Negative for palpitations. Gastrointestinal: See Interval history. Genitourinary: Negative for dysuria. Musculoskeletal: Positive for back pain (and hip pain. followed by PCP. ). Skin: Negative for rash. Past Medical History Diagnosis Date ??? Ulcerative colitis 10/01/2011 ??? Diabetes mellitus 10/01/2011 ??? Hearing loss 10/01/2011 ??? GERD (gastroesophageal reflux disease) 10/01/2011 ??? Hydrocele 10/01/2011 ??? Asthma 10/01/2011 Past Surgical History Procedure Laterality Date ??? Pro colonoscopy, diagnostic 11/27/2011 COLONOSCOPY, DIAGNOSTIC performed by Dion OSULLIVAN at [facility] ??? Pro sigmoidoscopy, diagnostic 03/16/2012 FLEXIBLE SIGMOIDOSCOPY performed by YUDI MALLOY at [facility] ??? Upper gi endoscopy, exam 10/01/2012 UPPER GI ENDOSCOPY performed by Dion OSULLIVAN at [facility] ??? Pro colonoscopy, diagnostic 07/13/2014 COLONOSCOPY, DIAGNOSTIC performed by Dion Osullivan MD at [facility] History Social History ??? Marital Status: Spouse Name: N/A Number of Children: N/A ??? Years of Education: N/A Occupational History ??? Not on file. Social History Main Topics ??? Smoking status: Former Smoker -- 4.00 packs/day for 30 years Types: Cigarettes Quit date: 10/01/1992 ??? Smokeless tobacco: Never Used ??? Alcohol Use: No ??? Drug Use: No ??? Sexual Activity: Not on file Other Topics Concern ??? Not on file Social History Narrative No family history on file. Physical Exam Constitutional: He appears well-developed and well-nourished. No distress. Eyes: Conjunctivae are normal. No scleral icterus. Abdominal: Soft. Bowel sounds are normal. He exhibits no distension and no mass. There is no tenderness. There is no guarding. Musculoskeletal: He exhibits tenderness (tender on Right hip, low back area nad rom still limited but slightly imporved compared to last visit.). Neurological: He is alert. Skin: Skin is warm and dry. Labs: Results for NAYA RODRIGUEZ ( ) as of 12/04/2015 15:12 Ref. Range 11/06/2015 10:24 11/06/2015 13:00 11/06/2015 13:09 11/06/2015 13:49 11/06/2015 14:30 WBC Latest Range: 4.0-10.0 x10(3)/mcL 6.6 RBC Latest Range: 4.63-6.08 x10(6)/mcL 4.25 (L) Hemoglobin Latest Range: 13.7-17.5 gm/dL 13.9 Hematocrit Latest Range: 40.0-51.0 % 41.7 MCV Latest Range: 79.0-92.0 fL 98.1 (H) MCH Latest Range: 25.6-32.2 pg 32.7 (H) MCHC Latest Range: 32.0-36.5 gm/dL 33.3 RDWSD Latest Range: 35.0-46.0 fL 45.5 RDWCV Latest Range: 10.9-14.4 % 12.7 Platelets Latest Range: 145-370 x10(3)/mcL 216 MPV Latest Range: 9.0-12.0 fL 11.3 Neutr Abs (ANC) Latest Range: 1.50-6.30 x10(3)/mcL 4.25 Neutrophils % Latest Units: % 64.9 Immature Gran % Latest Units: % 0.30 Lymphocytes % Latest Units: % 24.7 Monocytes % Latest Units: % 6.7 Eosinophils % Latest Units: % 3.1 Basophils % Latest Units: % 0.3 Sherry Gran Abs Latest Range: 0.00-0.05 x10(3)/mcL 0.02 Lymphocytes Abs Latest Range: 1.0-3.6 x10(3)/mcL 1.6 Monocyte Abs Latest Range: 0.2-1.0 x10(3)/mcL 0.4 Eosinophils Abs Latest Range: 0.0-0.5 x10(3)/mcL 0.2 Basophils Abs Latest Range: 0.0-0.2 x10(3)/mcL 0.0 Sed Rate Latest Range: 0-15 mm/hr 22 (H) Sodium Latest Range: 135-145 mmol/L 144 Potassium Latest Range: 3.5-5.0 mmol/L 4.4 Chloride Latest Range: 98-107 mmol/L 104 CO2 Latest Range: 22-31 mmol/L 26 Anion Gap Latest Range: 5-15 mmol/L 14 BUN Latest Range: 10-20 mg/dL 14 Creatinine Latest Range: 0.80-1.50 mg/dL 1.15 Estimated GFR Latest Range: >=60 >60 Glucose Lvl Latest Range: 65-199 mg/dL 81 Calcium Latest Range: 8.5-10.5 mg/dL 9.7 Total Protein Latest Range: 6.1-8.0 gm/dL 8.2 (H) Albumin Latest Range: 3.2-5.2 gm/dL 4.6 Total Bilirubin Latest Range: 0.2-1.3 mg/dL 0.4 Bili, Direct Latest Range: 0.0-0.3 mg/dL 0.1 Alk Phos Latest Range: 40-120 unit/L 63 AST Latest Range: 0-39 unit/L 18 ALT Latest Range: 0-55 unit/L 27 CRP High Sens Latest Units: mg/L 7.9 Color UA Latest Range: Yellow Kristina Appearance UA Latest Range: Clear Hazy (A) Spec [place] UA Latest Range: 1.002-1.030 1.020 pH UA Latest Range: 5.0-8.0 5.0 Protein UA Latest Range: Negative mg/dL 30 (A) Glucose UA Latest Range: Negative mg/dL Negative Ketones UA Latest Range: Negative mg/dL Negative Bilirubin UA Latest Range: Negative mg/dL Negative Urobilinogen UA Latest Range: Normal mg/dL Normal Blood UA Latest Range: Negative mg/dL Small (A) Leukocytes UA Latest Range: Negative mcL Large (A) Nitrite UA Latest Range: Negative Positive (A) WBC UA Latest Range: 0-3 /HPF 96 (H) WBCs Clumping Latest Range: None /HPF Rare (A) RBC UA Latest Range: 0-3 /HPF 10 (H) Hyaline Cast UA Latest Range: 0-2 /LPF 4 (H) Bacteria UA Latest Range: None /HPF Many (A) Squam Epith UA Latest Range: <=4 /HPF 2 Trans Epith UA Latest Range: <=1 /HPF 1 Culture Reflexed No range found Yes CAMPYLOBACTER ANTIGEN No range found Immunoassay Negative for Campylobacter Antigen C Diff Screen Latest Range: Negative Negative SHIGA TOXIN ASSAY No range found EIA Negative for Shiga Toxin 1 EIA Negative for Shiga Toxin 2 URINE CULTURE No range found Rpt (A) STOOL CULTURE No range found No enteric pathogens isolated Cryptosporidium Screen Latest Range: Negative Negative Giardia Screen Latest Range: Negative Negative Urine Culture (Abnormal) 50,000-99,000 cfu/ml Escherichia coli Specimen Source Information Specimen Type: Clean Catch Urine Susceptibility Escherichia coli MICROSCAN METHOD Amikacin Sensitive Ampicillin Resistant Ampicillin + Sulbactam Intermediate Aztreonam Sensitive Cefazolin Resistant Cefepime Sensitive Ceftazidime Sensitive Ceftriaxone Sensitive Cefuroxime Intermediate Ciprofloxacin Sensitive Gentamicin Sensitive Levofloxacin Sensitive Meropenem Sensitive Nitrofurantoin Sensitive Piperacillin/Tazobactam Sensitive Tetracycline Sensitive Tobramycin Sensitive Trimethoprim/Sulfa Sensitive ASSESSMENT AND PLAN: 1. Ulcerative colitis, last month with increasde sxs. Labs with elevated ESR/ CRP. Stool studies negative, This is likey due to UC flare and less likely infection. He remains on Sulfasalazine 4 tabs BID and we added Cortifoam enema. The last 2 weeks, feeling better. I wonder if also due to increased dose of Imodium. I told him to go back on Cotifoam enema q hs x2 more weeks then every other night x2 weeks; 3x/weeks x2 weeks then off. - Cortifoam enema every night x 2 weeks; then once every other night x 2 weeks; 3x/ week x 2 weeks then off. - stay on sulfasalazine 4 tabs twice daily - continue folic acid 1 tab daily - call us if any worsening sxs, 2. Dysuria. Urine with positive UA/CX. Given Cipro 500 mg BID x7 days with improvement in sxs. Remains asymptomatic off Cipro. 3. Right lower back to right hip pain. S/p MRI and has f/u with PCP in [address] Osullivan in 4-6 months or sooner with me if needed. documented in this encounter Plan of Treatment Upcoming Encounters Date Type Department Care Team (Late st Contact Info) Description 08/15/2024 9:00 AM EDT Office [place] [phone] Dion Osullivan MD [facility] [place] [address] 09/01/2024 11:20 AM EDT Office Visit Dermatology at [place] [address] [place] [address] Gómez Mercer MD [facility] [place] [address] 09/21/2024 2:45 PM EDT Office Visit [place] [phone] Trung Hoyos MD [facility] [place] [address] documented as of this encounter Visit Diagnoses Diagnosis Other ulcerative colitis documented in this encounter Care Teams Goldsmith Apprentice Relationship Specialty Start Date End Date Maximilian Fall MD [address] [place] [address] PCP - General 10/01/11 02/13/21 documented as of this encounter
--- OUTSIDE RECORDS SUMMARY | 2024-06-29 16:05 | XMS_ITS | Encounter Summary ---
Author Organization [facility] [place] [address] Care Team Providers Care Waste Paper Hammermill Operator Name Role Phone Maximilian Fall MD Primary Care Provider [phone] Reason for Visit * Reason Onset Date Comments Medication Refill 03/12/2018 Encounter Details Date Type Department Care Team (Late st Contact Info) Description 03/12/2018 Ref[place] [phone] Bethany Trivedi, RONY Pain in right hip; [...] EDT Office [place] [phone] Dion Barlow MD [facility] [place] [address] 09/01/2024 11:20 AM EDT Office Visit Dermatology at [facility] [address] [place] [phone] Gómez Mercer MD [facility] DR ED[facility] [place] [address] 09/21/2024 2:45 PM EDT Office Visit [facility] [place] [address] Trung Hoyos MD [facility] [place] [address] documented as of this encounter Visit Diagnoses Diagnosis Pain in right hip Pain in joint, pelvic region and thigh Chronic ulcerative enterocolitis, unspecified complication documented in this encounter Care Teams Waste Paper Hammermill Operator Relationship Specialty Start Date End Date Maximilian Fall MD [address] [place] [address] PCP - General 10/01/11 02/13/21 documented as of this encounter
--- OUTSIDE RECORDS SUMMARY | 2024-06-29 16:05 | XMS_ITS | Encounter Summary ---
Author Organization [facility] [place] [address] Care Team Providers Care Retort Furnace Operator Name Role Phone Maximilian Fall MD Primary Care Provider [phone] Reason for Visit * Reason Comments Follow-up Encounter Details Date Type Department Care Team (Late st Contact Info) Description 10/29/2017 10:30 AM EST Office [place] [address] Dion Barlow MD [facility] [place] [address] Left sided ulcerative colitis with complication Social History Tobacco [...] Sign Reading Time Taken Comments Blood Pressure 123/65 10/29/2017 10:23 AM EST Pulse 69 10/29/2017 10:23 AM EST Temperature - - Respiratory Rate - - Oxygen Saturation - - Inhaled Oxygen Concentration - - Weight 115.4 kg (254 lb 6.4 oz) 017 10:23 AM EST Height 193 cm (6' 4) 10/29/2017 10:23 AM EST Body Mass Index 30.97 10/29/2017 10:23 AM EST documented in this encounter Patient Instructions * Patient Instructions* Dion Balrow MD - 10/29/2017 10:30 AM EST # Continue sulfasalazine 4 tabs twice daily # Continue folic acid 1 tab daily # Recommend Cortifoam enema two times per week on a regular basis to help maintain remission. # For worsening symptoms (increased frequency or bleeding), please call and then use cortifoam every night x 2 weeks and then once every other night for two weeks # Okay to stop suppositories # Check complete blood count, kidney testing (creatinine), and liver tests annually to evaluate forrare complications from IBD (PSC) and from mesalamine (interstitial nephritis, abnormal LFTs, myelosuppression). Next due in April 2018 (unless Dr. Fall wants to check sooner). # Colonoscopy again spring 2018. # Avoid non-steroidal anti-inflammatory medications (NSAIDs) including but not limited to Advil, ibuprofen, Motrin, Aleve, Excedrin, naproxen, Mobic, indomethacin, and aspirin. Acetaminophen (Tylenol) is okay for aches and pains. # Follow-up in the office in 6 months. documented in this encounter Progress Notes * Dion Barlow MD - 10/29/2017 10:30 AM EST ?? Problem List ?? Diagnosis ??? Ulcerative colitis ? Overview Note: ? Colonoscopy 04/08/10 (Dr. Gomes [facility]) - inflammation only within the rectum and sigmoid; extent of the exam was to the hepatic flexure; biopsies proximal to the sigmoid nl ?? Repeat exam 11/27/11 ([facility] [...] (gastroesophageal reflux disease) ??? Hydrocele ??? Asthma ? INTERVAL HISTORY: Mr. Rodriguez comes back to see me to follow-up ulcerative colitis. He was last seen in April by Roxanna LUCERO in the office, and I did a colonoscopy in in January. There was patchy mild left-sided colitis. ?? He is on sulfasalazine 4 tabs twice daily. Was more symptomatic last month with up 10-15 loose, non-bloody stools per day. Tried Canasa suppositories but caused pelvic pressure and pain. Used Cortifoam for two nights - which seemed to help. Now with 4-5 stools per day. Usually loose but sometimes formed. Not bloody. No nocturnal symptoms.Minimal abd crampy pain as of late. ?? REVIEW OF SYSTEMS Notable for the gastrointestinal symptoms as described above. There has been no anorexia, fever, orunintended weight change; no red or painful eyes; no oral ulcers, chronic oral lesions, or chronic sore throat. There is no cough, shortness of breath, palpitations, or chest pain. He describes rightflank pain is been on and off for a couple of months. He also has had some dysuria and discoloration of the urine. He was treated about [address] Fall for urinary tract infection has follow-up this Thursday. No chronic joint pains or history of inflammatory arthritis. There is no recent skin rash. The patient denies psychiatric problems. There are no neurologic symptoms or easy bruising or bleeding. Vitals: 10/29/17 1023 BP: 123/65 Pulse: 69 Weight: (!) 115.4 kg (254 lb 6.4 oz) Height: (!) 193 cm (6' 4) Wt Readings from Last 3 Encounters: 10/29/17 (!) 115.4 kg (254 lb 6.4 oz) 05/11/17 (!) 116.1 kg (256 lb) 02/12/17 (!) 115.2 kg (254 lb) Physical Exam Constitutional: He appears well-developed and well-nourished. Vitals reviewed. ?? Lab Results Component Value Date WBC 7.5 05/11/2017 RBC 3.98 (L) 05/11/2017 HGB 13.1 (L) 05/11/2017 HCT 39.4 (L) 05/11/2017 MCV 99.0 (H) 05/11/2017 MCH 32.9 (H) 05/11/2017 MCHC 33.2 05/11/2017 PLATELET 220 05/11/2017 RDWCV 12.3 05/11/2017 Chemistry Component Value Date/Time NA 143 05/11/2017 1621 K 4.9 05/11/2017 1621 CL 103 05/11/2017 1621 CO2 26 05/11/2017 1621 BUN 20 05/11/2017 1621 CREATININE 1.17 05/11/2017 1621 Component Value Date/Time CALCIUM 9.9 05/11/2017 1621 ALKPHOS 58 05/11/2017 1621 AST 13 05/11/2017 1621 ALT 21 05/11/2017 1621 BILITOT 0.3 05/11/2017 1621 Lab Results Component Value Date CRP 2.3 05/11/2017 ASSESSMENT AND PLAN: Ulcerative colitis. It has been patchy (likely due to topical therapies), mild, and primarily left-sided. On Sulfasalazine 8 tabs daily and cortifoam as needed. Discussed with Mr. Rodriguez that he likely will need Cortifoam for a longer period of time when he is more symptomatic. Specifically, I recommended that he use it nightly for 2 every other night for 2 weeks. Additionally, as we have discussed in the past, I think he would benefit from using Cortifoam 2 times per week on a regular basis tohelp maintain remission. He says that he is willing to give this a try. He also uses Imodium as needed up to 3 times a day. As long as he is not having bloody diarrhea or fevers, I think this is okay. In the past when his colitis is been completely in remission, he has still had chronic diarrhea. He is to follow-up with Dr. Fall this week for his right flank pain and urinary symptoms. ?? We discussed the following recommendations that were printed out for the patient: # Continue sulfasalazine 4 tabs twice daily # Continue folic acid 1 tab daily # Recommend Cortifoam enema two times per week on a regular basis to help maintain remission. # For worsening symptoms (increased frequency or bleeding), please call and then use cortifoam every night x 2 weeks and then once every other night for two weeks # Okay to stop suppositories # Check complete blood count, kidney testing (creatinine), and liver tests annually to evaluate forrare complications from IBD (PSC) and from mesalamine (interstitial nephritis, abnormal LFTs, myelosuppression). Next due in April 2018 (unless Dr. Fall wants to check sooner). # Colonoscopy again spring 2018. # Avoid non-steroidal anti-inflammatory medications (NSAIDs) including but not limited to Advil, ibuprofen, Motrin, Aleve, Excedrin, naproxen, Mobic, indomethacin, and aspirin. Acetaminophen (Tylenol) is okay for aches and pains. # Follow-up in the office in 6 months. 15 min of this 25 min [id number] visit was spent counseling the patient in the issues outlined above. Davina Barlow MD [employer] iron cutter Section of Gastroenterology [place] [address] CC: Maximilian Fall MD [address] [place] [phone] documented in this encounter Plan of Treatment Upcoming Encounters Date Type Department Care Team (Late st Contact Info) Description 08/15/2024 9:00 AM EDT Office [place] [address] Dion Barlow MD [facility] [place] [address] 09/01/2024 11:20 AM EDT Office Visit Dermatology at [facility] [address] [place] [address] Gómez Mercer MD [facility] DR [facility] [place] [address] 09/21/2024 2:45 PM EDT Office Visit [facility] [place] [address] Trung Hoyos MD [facility] [place] [address] documented as of this encounter Visit Diagnoses Diagnosis Left sided ulcerative colitis with complication documented in this encounter Care Teams Retort Furnace Operator Relationship Specialty Start Date End Date Maximilian Fall MD [address] [place] [address] PCP - General 10/01/11 02/13/21 documented as of this encounter
--- OUTSIDE RECORDS SUMMARY | 2024-06-29 16:05 | XMS_ITS | Encounter Summary ---
Author Organization [facility] [place] [address] Care Team Providers Care Rug Dry Room Attendant Name Role Phone Maximilian Fall MD Primary Care Provider [phone] Encounter Details Date Type Department Care Team (Latest Contact Info) Description 07/14/2016 11:55 AM EDT Laboratory Appointment Lab [address] [place] [phone] Chronic ulcerative enterocolitis, unspecified complication; Acute amebic dysentery Social History Tobacco Use Types Packs/Day Years [...] EDT Office [place] [phone] Dion Barlow MD [facility] [place] [address] 09/01/2024 11:20 AM EDT Office Visit Dermatology at [facility] [address] [place] [phone] Gómez Mercer MD [facility] DR ED[place] [address] 09/21/2024 2:45 PM EDT Office Visit [facility] and Sp[facility] at [facility] [place] [address] Trung Hoyos MD [facility] [place] [address] documented as of this encounter Procedures Procedure Name Priority Date/Time Associated Diagnosis Comments HEMOGRAM Routine 07/14/2016 12:21 PM EDT Chronic ulcerative enterocolitis, unspecified complication Acute amebic dysentery DIFFERENTIAL, AUTOMATED Routine 07/14/2016 12:21 PM EDT Chronic ulcerative enterocolitis, unspecified complication Acute amebic dysentery SEDIMENTATION RATE Routine 07/14/2016 12 :21 PM EDT Chronic ulcerative enterocolitis, unspecified complication Acute amebic dysentery CBC (WITH DIFF) Routine 07/14/2016 12:21 PM EDT Chronic ulcerative enterocolitis, unspecified complication Acute amebic dysentery CRP, CARDIAC RISK (HS CRP) Routine 07/14/2016 12:21 PM EDT Chronic ulcerative enterocolitis, unspecified complication Acute amebic dysentery COMPREHENSIVE METABOLIC PANEL Routine 07/14/2016 12:21 PM EDT Chronic ulcerative enterocolitis, unspecified complication Acute amebic dysentery documented in this encounter Results * Differential, Automated (07/14/2016 12:21 PM EDT) Neutrophil % 60.2 % [facility] Neutrophil Absolute 3.77 1.50 - 6.30 x10(3)/[facility] Lymph % 27.2 % [facility] Lymphocytes Abs 1.7 1.0 - 3.6 x10(3)/[facility] Monocyte % 9.0 % [facility] Monocyte Abs 0.6 0.2 - 1.0 x10(3)/[facility] Eos % 2.6 % [facility] Eosinophils Abs 0.2 0.0 - 0.5 x10(3)/[facility] Basophil % 0.5 % [facility] Baso Absolute 0.0 0.0 - 0.2 x10(3)/[facility] Immature Gran % 0.50 % [facility] Comment: Immature granulocytes(IG's)percentage and absolute count will include metamyelocytes, myelocytes, and promyelocytes. Blood smears from CBCs yielding IG's will be scanned manually for concordance. If this scan disagrees with the automated IG or if promyelocytes are noted, a manual differential will be performed. Immature Gran Absolute 0.03 0.00 - 0.05 x10(3)/[facility] Blood specimen (specimen) 07/14/2016 12:21 PM EDT 07/14/2016 12:29 PM EDT Narrative Resulting Agency Comment Spec In Lab L Karthik Barlow MD HEMATOLOGY ORDERABLE S [facility] [place] [place] [address] * (ABNORMAL) Hemogram (07/14/2016 12:21 PM EDT) White Blood Cell 6.2 4.0 - 10.0 x10(3)/mc L [facility] Red Blood Cell 4.11(L) 4.63 - 6.08 x10(6)/ L [facility] Hemoglobin 13.4(L) 13.7 - 17.5 gm/dL [facility] Hematocrit 40.5 40.0 - 51.0 % [facility] Mean Cell Volume 98.5(H) 79.0 - 92.0 fL [facility] Mean Cell Hemoglobin 32.6(H) 25.6 - 32.2 pg [facility] Mean Cell Hemoglobin Concentration 33.1 32.0 - 36.5 gm/dL [facility] Platelet 214 145 - 370 x10(3)/mc L [facility] RDW Standard Deviation 47.4(H) 35.0 - 46.0 fL [facility] RDW coefficient of variation 13.2 10.9 - 14.4 % [facility] Mean Platelet Volume 11.1 9.0 - 12.0 fL [facility] NRBC% auto 0.0 % [facility] NRBC Absolute 0.000 0.000 - 0.012 x10(3)/mc L [facility] Blood specimen (specimen) 07/14/2016 12:21 PM EDT 07/14/2016 12:29 PM EDT Narrative Resulting Agency Comment Spec In Lab L Karthik Barlow MD HEMATOLOGY ORDERABLE S Performing Organization Address City/[facility]/ZIP Co de Phone Number [facility] [place] [place] [address] * (ABNORMAL) Sedimentation rate (07/14/2016 12:21 PM EDT) Sedimentation Rate Automated 17(H) 0 - 15 mm/hr [facility] Blood specimen (specimen) 07/14/2016 12:21 PM EDT 07/14/2016 12:29 PM EDT Narrative Resulting Agency Comment Spec In Lab L Karthik Barlow MD HEMATOLOGY ORDERABLE S [facility] [place] [address] * Comprehensive metabolic panel (non-fasting) (07/14/2016 12:21 PM EDT) Glucose 147 65 - 199 mg/dL [facility] Comment:Diabetes: >=200 mg/d L plus symptoms Blood Urea Nitrogen 17 10 - 20 mg/dL [facility] Creatinine 1.04 0.80 - 1.50 mg/dL [facility] Comment: Please note that the pediatric reference intervals supplied above were not validated at [facility]. Results from pediatric patients should be interpreted in conjunction to the patient's age, height and muscle mass. Sodium 140 135 - 145 mmol/L [facility] Potassium 4.6 3.5 - 5.0 mmol/L [facility] Comment: Please note: ??Patients with WBC >100,000 may have falsely elevated Potassium levels. ??For accurate Potassium quantification in these patients send serum separator tube (gold top) for subsequent determinations. ??Contact the Clinical Chemistry Laboratory if there are any questions. Chloride 102 98 - 107 mmol/L [facility] Carbon Dioxide 25 22 - 31 mmol/L [facility] Anion Gap 13 5 - 15 mmol/L [facility] Calcium 9.7 8.5 - 10.5 mg/dL [facility] Protein, Total 7.9 6.1 - 8.0 gm/dL [facility] Albumin 4.4 3.2 - 5.2 gm/dL [facility] Aspartate Aminotransferase 15 0 - 39 unit/L [facility] Alanine Aminotransferase 20 0 - 55 unit/L [facility] Alkaline Phosphatase 65 40 - 120 unit/L [facility] Bilirubin, Total 0.4 0.2 - 1.3 mg/dL [facility] Bilirubin, Direct 0.1 0.0 - 0.3 mg/dL [facility] Est Glomerular Filtration Rate >60 >=60 [facility] Comment: This estimated GFR (eGFR) [...] the following links into your internet browser. [email or web address] Blood specimen (specimen) 07/14/2016 12:21 PM EDT 07/14/2016 12:29 PM EDT Narrative Resulting Agency Comment Spec In Lab L Karthik Barlow MD CHEMISTRY ORDERABLES Performing Organization Address [facility] Co de Phone Number [facility] [place] [address] * High Sensitivity CRP (07/14/2016 12:21 PM EDT) C-Reactive Protein High Sensitivity 4.8 mg/L [facility] Comment: Interpretations: 1) For accurate [...] the test package insert) References: 1. Christiane ZHU et. al. ??AHA/CDC Scientific Statement: Markers of Inflammation and Cardiovascular Disease. ??Circulation 2003; 107:499-511 2. Ridker PM. ??Clinical applications of C-reactive protein for cardiovascular disease detection and prevention. ??Circulation 2003; 107:363-369 Blood specimen (specimen) 07/14/2016 12:21 PM EDT 07/14/2016 12:29 PM EDT Narrative Resulting Agency Comment Spec In Lab L Karthik Barlow MD CHEMISTRY ORDERABLES Performing Organization Address [facility] Co de Phone Number [facility] [place] [place] [address] documented in this encounter Visit Diagnoses Diagnosis Chronic ulcerative enterocolitis, unspecified complication Acute amebic dysentery Acute amebic dysentery without mention of abscess documented in this encounter Care Teams Rug Dry Room Attendant Relationship Specialty Start Date End Date Maximilian Fall MD [address] [place] [address] PCP - General 10/01/11 02/13/21 documented as of this encounter
--- OUTSIDE RECORDS SUMMARY | 2024-06-29 16:05 | XMS_ITS | Encounter Summary ---
Author Organization [facility] Address [facility] [place] [address] Care Team Providers Care Foam Cutting Supervisor Name Role Phone Maximilian Fall MD Primary Care Provider [phone] Encounter Details Date Type Department Care Team (Latest Contact Info) Description 07/18/2016 2:18 PM EDT - 07/18/2016 11:59 PM EDT Hospital [place] [phone] Left sided colitis, unspecified complication; Chronic ulcerative enterocolitis, unspecified complication; Acute amebic dysentery Discharge Disposition: Home Social History Tobacco Use [...] times daily. 240 tablet 5 05/16/2016 02/22/2019 cephalexin (KEFLEX) 500 mg Capsule Reported on 11/10/2016 0 04/04/2016 hydrocortisone (CORTIFOAM) 10 % (80 mg) FoamIndications:Pain [...] 9:00 AM EDT Office [place] [address] Dion Barlow MD [facility] [place] [address] 09/01/2024 11:20 AM EDT Office Visit Dermatology at [address] [phone] Gómez Mercer MD [facility] DR EDDIE SANCHEZ[place] [address] 09/21/2024 2:45 PM EDT Office Visit [place] [phone] Trung Hoyos MD [facility] [place] [address] documented as of this encounter Procedures Procedure Name Priority Date/Time Associated Diagnosis Comments CAMPYLOBACTER ANTIGEN Routine 07/18/2016 2:32 PM EDT Chronic ulcerative enterocolitis, unspecified complication Acute amebic dysentery C. DIFFICILE SCREEN Routine 07/18/2016 2 :32 PM EDT Chronic ulcerative enterocolitis, unspecified complication Acute amebic dysentery STOOL CULTURE SCREEN ([facility]/CGP/APD/NLH) Routine 07/18/2016 2:27 PM EDT Chronic ulcerative enterocolitis, unspecified complication Acute amebic dysentery CRYPTOSPORIDIUM OOCYST ANTIGEN ([facility]/CGP/APD) Routine 07/18/2016 2:27 PM EDT Left sided colitis, unspecified complication SHIGA TOXIN ASSAY Routine 07/18/2016 2:2 7 PM EDT Chronic ulcerative enterocolitis, unspecified complication Acute amebic dysentery GIARDIA/CRYPTOSPORIDIUM ANTIGENS ([facility]/CGP/APD/NLH) Routine 07/18/2016 2:27 PM EDT Left sided colitis, unspecified complication GIARDIA ANTIGEN ([facility]/CGP/APD/NLH) Routine 07/18/2016 2:27 PM EDT Left sided colitis, unspecified complication STOOL CULTURE Routine 07/18/2016 2:27 PM EDT Chronic ulcerative enterocolitis, unspecified complication Acute amebic dysentery documented in this encounter Results * Campylobacter Antigen (07/18/2016 2:32 PM EDT) Campylobacter Ag Immunoassay Negative for Campylobacter Antigen [facility] Stool specimen (specimen) 07/18/2016 2:32 PM EDT 07/18/2016 2:32 PM EDT Narrative Resulting Agency Comment Spec In Lab L Karthik Barlow MD MICROBIOLOGY - GENER AL ORDERABLES [facility] [place] [address] * C. Difficile Screen (07/18/2016 2:32 PM EDT) C Diff Interp Negative Negative [facility] Comment: C. diff ??Negative Clostridium difficile is not present in the specimen. If patient is having diarrhea suspected to be from an infectious cause, then Contact Precautions are still required. Stool specimen (specimen) 07/18/2016 2:32 PM EDT 07/18/2016 2:32 PM EDT Narrative Resulting Agency Comment Spec In Lab L Karthik Barlow MD MICROBIOLOGY - GENER AL ORDERABLES Performing Organization Address City/[facility] Co de Phone Number [facility] [place] [address] * Shiga Toxin Detection (07/18/2016 2:27 PM EDT) Shiga Toxin Assay EIA Negative for Shiga Toxin 1 EIA Negative for Shiga Toxin 2 [facility] Stool specimen (specimen) 07/18/2016 2:27 PM EDT 07/18/2016 2:32 PM EDT Narrative Resulting Agency Comment Spec In Lab L Karthik Barlow MD MICROBIOLOGY - GENER AL ORDERABLES Performing Organization Address [facility] Co de Phone Number [facility] [place] [address] * Stool culture (07/18/2016 2:27 PM EDT) Stool Culture No enteric pathogens isolated [facility] Stool specimen (specimen) 07/18/2016 2:27 PM EDT 07/18/2016 2:32 PM EDT Narrative Resulting Agency Comment Spec In Lab L Karthik Barlow MD MICROBIOLOGY - GENER AL ORDERABLES Performing Organization Address [facility] Co de Phone Number [facility] [place] [address] * Cryptosporidium Oocyst Antigen (07/18/2016 2:27 PM EDT) Cryptosporidium Antigen Negative Negative [facility] Stool specimen (specimen) 07/18/2016 2:27 PM EDT 07/18/2016 2:32 PM EDT Narrative Resulting Agency Comment Spec In Lab L Karthik Barlow MD MICROBIOLOGY - GENER AL ORDERABLES Performing Organization Address [facility] Co de Phone Number [facility] [place] [address] * Giardia antigen (07/18/2016 2:27 PM EDT) Giardia Antigen Negative Negative [facility] Comment:Examination for othe r intestinal parasites requires foreign travel history. Stool specimen (specimen) 07/18/2016 2:27 PM EDT 07/18/2016 2:32 PM EDT Narrative Resulting Agency Comment Spec In Lab L Karthik Barlow MD MICROBIOLOGY - GENER AL ORDERABLES Performing Organization Address [facility] Co de Phone Number [facility] [place] [address] documented in this encounter Visit Diagnoses Diagnosis Left sided colitis, unspecified complication Chronic ulcerative enterocolitis, unspecified complication Acute amebic dysentery Acute amebic dysentery without mention of abscess documented in this encounter Care Teams Foam Cutting Supervisor Relationship Specialty Start Date End Date Maximilian Fall MD [address] [place] [address] PCP - General 10/01/11 02/13/21 documented as of this encounter
--- OUTSIDE RECORDS SUMMARY | 2024-06-29 16:05 | XMS_ITS | Encounter Summary ---
Author Organization [facility] [place] [address] Care Team Providers Care Shell Assembler Name Role Phone Maximilian Fall MD Primary Care Provider [phone] Reason for Visit * Reason Comments Follow-up Encounter Details Date Type Department Care Team (Late st Contact Info) Description 04/08/2016 1:30 PM EDT Office [place] [address] Marcelle Weinberg APRN [facility] [place] [address] Ulcerative chronic pancolitis, unspecified complication Social History Tobacco Use Types [...] Sign Reading Time Taken Comments Blood Pressure 138/84 04/08/2016 1:20 PM EDT Pulse 105 04/08/2016 1:20 PM EDT Temperature - - Respiratory Rate - - Oxygen Saturation - - Inhaled Oxygen Concentration - - Weight 108.9 kg (240 lb) 04/08/2016 1:20 PM EDT Height 193 cm (6' 4) 04/08/2016 1:20 PM EDT Body Mass Index 29.21 04/08/2016 1:20 PM EDT documented in this encounter Patient Instructions * Patient Instructions* Marcelle Weinberg APRN - 04/08/2016 1:45 PM EDT - please go back on sulfasalazine 4 tabs twice daily - continue folic acid 1 tab daily - call us if any worsening symptoms - follow up with local surgeon this week documented in this encounter Progress Notes * Marcelle Weinberg APRN - 04/08/2016 9:44 AM EDT Patient Active Problem List Diagnosis ??? Ulcerative colitis Overview Note: ?? Colonoscopy 04/08/10 (Dr. Gomes [facility]) - inflammation only within the rectum and sigmoid; extent of the exam was to the hepatic flexure; biopsies proximal to the sigmoid nl ?? Repeat exam 11/27/11 ([facility] mildly active colitis in the sigmoid colon [...] Note: ??? Hydrocele ??? Asthma INTERVAL HISTORY: Brian returns for f/u. Since last visit, he underwent laparoscopic appendectomy on 03/13/2016 then noted RLQ pain several days post-op. He underwent a CT scan with findings consistent with RLQ abscess. He had a CT guided RLQ abscess drain placement here on 03/22/16. Drain was removed last week , then noted mild abd'l pain and placed on Keflex for the past 4 days, has 2 more days left. His sxs have improved. He has a f/u with his surgeon end of this week. As far as his UC, cortifoam enema has helped dramatically and able to wean it off in February. He was having normal BM once a day, formed stool. Just yesterday, noted increased in bowel frequency , up to 4 x/day but soft- formed stool, no bleeding. Of note, patient also started cutting down on his Sulfasalazine from 8 pills/day to 4 tabs daily about 2 months ago. Eating well. He had lost weight since surgery and felt better, and plans to lose more weight. No n/v. Review of Systems - as above, the rests negative. Past Medical History Diagnosis Date ??? Asthma 10/01/2011 ??? Diabetes mellitus 10/01/2011 ??? GERD (gastroesophageal reflux disease) 10/01/2011 ??? Hearing loss 10/01/2011 ??? Hydrocele 10/01/2011 ??? Ulcerative colitis 10/01/2011 Past Surgical History Procedure Laterality Date ??? Pro colonoscopy, diagnostic 11/27/2011 COLONOSCOPY, DIAGNOSTIC performed by Dion OSULLIVAN at [facility] ??? Pro sigmoidoscopy, diagnostic 03/16/2012 FLEXIBLE SIGMOIDOSCOPY performed by YUDI MALLOY at [facility] ??? Upper gi endoscopy, exam 10/01/2012 UPPER GI ENDOSCOPY performed by Dion OSULLIVAN at [facility] ??? Pro colonoscopy, diagnostic 07/13/2014 COLONOSCOPY, DIAGNOSTIC performed by Dion Osullivan MD at [facility] No family history on file. History Social History ??? Marital status: Spouse name: N/A ??? Number of children: N/A ??? Years of education: N/A Occupational History ??? Not on file. Social History Main Topics ??? Smoking status: Former Smoker Packs/day: 4.00 Years: 30.00 Types: Cigarettes Quit date: 10/01/1992 ??? Smokeless tobacco: Never Used ??? Alcohol use: No ??? Drug use: No ??? Sexual activity: Not on file Other Topics Concern ??? Not on file Social History Narrative Physical Exam Constitutional: He appears well-developed and well-nourished. No distress. Abdominal: Soft. Bowel sounds are normal. He exhibits no distension. There is no tenderness. Neurological: He is alert. ASSESSMENT AND PLAN: Ulcerative colitis. Overall doing well. Just yesterday started to have more freq bm but still formed stool. Could be due to antibiotic (Keflex, has 2 more days left) vs low dose Sulfasalazine. I told him that if his stools become more watery, he would call us then will get stool for C.diff given\Abx use. In addition, I recommend going back to his previous SSZ dose. - please go back on Sulfasalazine 4 tabs twice daily - continue folic acid 1 tab daily - call us if any worsening symptoms - follow up with local surgeon this week for RLQ abscess s/p drain placement and removal, finishingcourse of Keflex in 2 days. - if develops diarrhea, will send stool for C.diff RTC with Dr. Osullivan as previously arranged end of April. documented in this encounter Plan of Treatment Upcoming Encounters Date Type Department Care Team (Late st Contact Info) Description 08/15/2024 9:00 AM EDT Office [place] [phone] Dion Osullivan MD [facility] [place] [address] 09/01/2024 11:20 AM EDT Office Visit Dermatology at [address] [address] Gómez Mercer MD [facility] [address] [place] [address] 09/21/2024 2:45 PM EDT Office Visit [facility] [place] [phone] Trung Hoyos MD [facility] [place] [address] documented as of this encounter Visit Diagnoses Diagnosis Ulcerative chronic pancolitis, unspecified complication documented in this encounter Care Teams Shell Assembler Relationship Specialty Start Date End Date Maximilian Fall MD [address] [place] [address] PCP - General 10/01/11 02/13/21 documented as of this encounter
--- OUTSIDE RECORDS SUMMARY | 2024-06-29 16:05 | XMS_ITS | Encounter Summary ---
Author Organization Formerly [facility] [place] [address] Care Team Providers Care Lining Scrubber Name Role Phone Maximilian Fall MD Primary Care Provider Reason for Visit * Reason Comments Follow-up Encounter Details Date Type Department Care Team (Late st Contact Info) Description 05/11/2017 4:00 PM EDT Office [place] [address] Marcelle Weinberg APRN [facility] [place] [address] Ulcerative colitis without complications, unspecified location Social History Tobacco Use Types Packs/Day Years [...] Sign Reading Time Taken Comments Blood Pressure 95/73 05/11/2017 3:33 PM EDT Pulse 97 05/11/2017 3:33 PM EDT Temperature - - Respiratory Rate - - Oxygen Saturation - - Inhaled Oxygen Concentration - - Weight 116.1 kg (256 lb) 05/11/2017 3:33 PM EDT with shoes Height 193 cm (6' 4) 05/11/2017 3:33 PM EDT Body Mass Index 31.16 05/11/2017 3:33 PM EDT documented in this encounter Patient Instructions * Patient Instructions* Marcelle Weinberg APRN - 05/11/2017 4:00 PM EDT - please submit stool studies - Continue sulfasalazine 4 tabs twice daily - Continue folic acid 1 tab daily - Cortifoam enema once every night x 4 weeks ; once every other night x2 weeks; then 2-3x/ week - start canasa supp once every day x 4 weeks, then once every other day x 4 weeks then stop documented in this encounter Progress Notes * Marcelle Weinberg APRN - 05/11/2017 4:00 PM EDT ?? Problem List ?? Diagnosis ??? Ulcerative colitis ? Overview Note: ? Colonoscopy 04/08/10 (Dr. Gomes [facility]) - inflammation only within the rectum and sigmoid; extent of the exam was to the hepatic flexure; biopsies proximal to the sigmoid nl ?? [place] exam 11/27/11 [place] [place] mildly active colitis in [...] to see me to follow-up ulcerative colitis. Last seen Dr. Osullivan 10/2016. ?? He had some recurrent symptoms this past 2 weeks. Having more loose stools, bm 6x/day, bleeding andmucus. + urgency. No nocturnal BM. This is associated with crampy abdominal pian. He is on sulfasalazine 4 tabs twice daily and cortifoam enema 2x/week. No fever/chills. He is eating. No n/v. ?? REVIEW OF SYSTEMS: as above, the rests negative. Past Medical History: Diagnosis Date ??? Asthma 10/01/2011 ??? Diabetes mellitus 10/01/2011 ??? GERD (gastroesophageal reflux disease) 10/01/2011 ??? Hearing loss 10/01/2011 ??? Hydrocele 10/01/2011 ??? Ulcerative colitis 10/01/2011 Past Surgical History: Procedure Laterality Date ??? PRO COLONOSCOPY, BIOPSY N/A 02/12/2017 COLONOSCOPY FLEXIBLE, WITH BX (WRVU 3.66) performed by Dion Osullivan MD at [facility] ENDOSCOPY ??? PRO COLONOSCOPY, DIAGNOSTIC 11/27/2011 COLONOSCOPY, DIAGNOSTIC performed by Dion OSULLIVAN at [facility] ENDOSCOPY ??? PRO COLONOSCOPY, DIAGNOSTIC 07/13/2014 COLONOSCOPY, DIAGNOSTIC performed by Dion Osullivan MD at [facility] ENDOSCOPY ??? PRO SIGMOIDOSCOPY, DIAGNOSTIC 03/16/2012 FLEXIBLE SIGMOIDOSCOPY performed by YUDI MALLOY at [facility] ENDOSCOPY ??? UPPER GI ENDOSCOPY, EXAM 10/01/2012 UPPER GI ENDOSCOPY performed by Dion OSULLIVAN at [facility] ENDOSCOPY Social History Social History ??? Marital status: Spouse name: N/A ??? Number of children: N/A ??? Years of education: N/A Occupational History ??? Not on file. Social History Main Topics ??? Smoking status: Former Smoker Packs/day: 4.00 Years: 30.00 Types: Cigarettes Quit date: 10/01/1992 ??? Smokeless tobacco: Never Used ??? Alcohol use No ??? Drug use: No ??? Sexual activity: Not on file Other Topics Concern ??? Not on file Social History Narrative .No family history on file. Vitals: 05/11/17 1533 BP: 95/73 Pulse: 97 Weight: (!) 116.1 kg (256 lb) Height: (!) 193 cm (6' 4) Physical Exam Constitutional: He appears well-developed and well-nourished. No distress. Abdominal: Soft. Bowel sounds are normal. He exhibits no distension and no mass. There is tenderness (diffuse tenderness on palpation.). Neurological: He is alert. Skin: Skin is warm and dry. COLONOSCOPY COLONOSCOPY ?? Collected: 02/12/17 1140 ?? Resulting lab: PROVATION ?? Value: [facility] Endoscopy Procedure Date: 02/12/2017 11:40 AM ? Patient Name: Brian Rodriguez ? Date of : 1950 ? Age: 66 ? Order #: [id number] ? Instrument Name: [id number] ? Procedure: ? Colonoscopy Indications: ? High risk colon cancer surveillance: ?Ulcerative colitis Patient Profile: ? This is a 66 year old male. This ?patient has left-sided ulcerative ?colitis on sulfasalazine and ?Cortifoam and is experiencing mild ?symptoms. Providers: ? Davina Osullivan MD, Vandana Love ?RONY Mckeon, Sonal Segura, ?Freelance Court Reporter Referring MD: ?Maximilian Fall MD Medicines: ? Midazolam 4 mg IV, Fentanyl 175 ?micrograms IV Complications: ? No immediate complications. Procedure: ? Pre-Anesthesia Assessment: ?- Prior to the procedure, a History ?and Physical was performed, and ?patient medications and allergies ?were reviewed. The patient is ?competent. The risks and benefits of ?the procedure and the sedation ?options and risks were discussed with ?the patient. All questions were ?answered and informed consent was ?obtained. Patient identification and?proposed procedure were verified by ?the physician in [...] The ?patient was placed in the left ?lateral decubitus position, and a ?digital rectal exam was performed. ?The Colonoscope was inserted in the ?anus and under direct visualization, ?advanced to the terminal ileum, with ?identification of the appendiceal ?orifice and IC valve. Careful ?inspection was made as the ?colonoscope was withdrawn. The ?colonoscopy was performed without ?difficulty. The patient tolerated the ?procedure well. The quality of the ?bowel preparation was evaluated using ?the BBPS ([place] Bowel Preparation ?Scale) with scores of: Right Colon = ?2 (minor amount of residual staining, ?small fragments of stool and/or ?opaque liquid, but mucosa seen well), ?Transverse Colon = 2 (minor amount of ?residual staining, small fragments of ?stool and/or opaque liquid, but ?mucosa seen well) and Left Colon = 2 ?(minor amount of residual staining, ?small fragments of stool and/or ?opaque liquid, but mucosa seen well). ?The total BBPS score equals 6. The ?quality of the bowel preparation was ?good. Scope withdrawal time was 14 ?minutes. ? Findings: ?The perianal and digital rectal examinations were ?normal. ?The terminal ileum appeared normal. ?Inflammation characterized by erosions, erythema and ?loss of vascularity was found in a patchy ?distribution. There were circumferential changes in ?the distal rectum and in few patches around 20 cm ?within the sigmoid colon. The rest of the colon was ?normal. It was mild in severity, and when compared to ?previous examinations, the findings are worsened. ?Several biopsies were taken proximal to the splenic ?flexure to evaluate for extent of microscopic ?colitis. Eight biopsies were obtained with cold ?forceps for surveillance randomly each from the ?descending and rectosigmoid colon. ?Multiple small and large-mouthed diverticula were ?found from sigmoid to ascending colon. ?Two small (2-3 mm) discrete polypoid lesions in the ?descending colon (45 cm) with a pit pattern ?consistent with hyperplastic change. Targeted ?biopsies taken. ? Impression: ?- The examined portion of the ileum ?was normal. ?- Left-sided ulcerative colitis. Mild ?inflammation in a patchy distribution ?in the rectosigmoid. This is ?consistent with partial treatment ?from topical therapy. The findings ?are mild but slightly worsened ?compared to previous examinations. ?- Eight biopsies were obtained each ?from the descending and rectosigmoid ?colon for surveillance and from the R ?colon to evaluate for extent of the ?colitis. ?- Targeted biopsies of likely ?hyperplastic diminutive polyps in the ?descending colon. ?- Moderate diverticulosis from ?sigmoid to ascending colon. Recommendation: ?- Recommend nightly Cortifoam for two ?weeks, then every other night for two ?weeks, then back to 2-3 times per ?week. If no improvement, would add ?morning Canasa suppositories. ?- Continue sulfasalazine. ?- Await pathology results. ?- Follow-up in IBD Clinic ? Attending Participation: ?I personally performed the entire procedure. ?I was present during the intraservice time as ?documented by the sedation RN. ? L. Karthik Osullivan MD 02/12/2017 12:30:33 PM Number of Addenda: 0 ? Surgical Pathology DIAGNOSIS A - Right colon, ??biopsy: [...] fragment of mucosa, given the endoscopic note ??describing diverticulosis, the findings may not be related to IBD and may instead by ??the result of diverticulosis. Clinical correlation is recommended. ?? ASSESSMENT AND PLAN: Ulcerative colitis. On Sulfasalazine 8 tabs daily and Cortifoam enema 2x/week. Recent colonoscopy, see above. Over the past 2 weeks, he is more symptomatic. This is likely UC but needs to R/O infection as well. We will get labs today and stool studies ?? We discussed the following recommendations that were printed out for the patient: - please submit stool studies - Continue sulfasalazine 4 tabs twice daily - Continue folic acid 1 tab daily - Cortifoam enema once every night x 4 weeks ; once every other night x2 weeks; then 2-3x/ week - start canasa supp once every day x 4 weeks, then once every other day x 4 weeks then stop F/U with Dr. Osullivan at next opening or sooner with me if needed. documented in this encounter Plan of Treatment Upcoming Encounters Date Type Department Care Team (Late st Contact Info) Description 08/15/2024 9:00 AM EDT Office [place] [address] Dion Osullivan MD [facility] [place] [address] 09/01/2024 11:20 AM EDT Office Visit Dermatology at [facility] [address] [place] [phone] Gómez Mercer MD [facility] [place] [address] 09/21/2024 2:45 PM EDT Office Visit [facility] at [facility] [place] [address] Trung Hoyos MD [facility] [place] [address] documented as of this encounter Procedures Procedure Name Priority Date/Time Associated Diagnosis Comments CRP, ACUTE INFLAMMATION Routine 05/11/2017 4:21 PM EDT Ulcerative colitis without complications, unspecified location CMP W/FASTING GLUCOSE Routine 05/11/2017 4:21 PM EDT Ulcerative colitis without complications, unspecified location HEMOGRAM Routine 05/11/2017 4:21 PM EDT Ulcerative colitis without complications, unspecified location DIFFERENTIAL, AUTOMATED Routine 05/11/2017 4:21 PM EDT Ulcerative colitis without complications, unspecified location SEDIMENTATION RATE Routine 05/11/2017 4: 21 PM EDT Ulcerative colitis without complications, unspecified location CBC (WITH DIFF) Routine 05/11/2017 4:21 PM EDT Ulcerative colitis without complications, unspecified location documented in this encounter Results * Differential, Automated (05/11/2017 4:21 PM EDT) Neutrophil % 63.1 % [facility] Neutrophil Absolute 4.76 1.70 - 6.10 x10(3)/[facility] Lymph % 25.0 % [facility] Lymphocytes Abs 1.9 0.9 - 3.2 x10(3)/[facility] Monocyte % 7.6 % [facility] Monocyte Abs 0.6 0.3 - 0.9 x10(3)/[facility] Eos % 3.2 % [facility] Eosinophils Abs 0.2 0.0 - 0.4 x10(3)/[facility] Basophil % 0.7 % [facility] Baso Absolute 0.0 0.0 - 0.1 x10(3)/[facility] Immature Gran % 0.40 % [facility] Comment: Immature granulocytes(IG's)percentage and absolute count will include metamyelocytes, myelocytes, and promyelocytes. Blood smears from CBCs yielding IG's will be scanned manually for concordance. If this scan disagrees with the automated IG or if promyelocytes are noted, a manual differential will be performed. Immature Gran Absolute 0.03 0.00 - 0.04 x10(3)/[facility] Blood specimen (specimen) 05/11/2017 4:21 PM EDT 05/11/2017 4:29 PM EDT Narrative Resulting Agency Comment Spec In Lab Marcelle Weinberg RAILCAR SWITCHMAN HEMATOLOGY ORDERA BLES [facility] [place] [address] * (ABNORMAL) Hemogram (05/11/2017 4:21 PM EDT) White Blood Cell 7.5 4.0 - 9.5 x10(3)/mc L [facility] Red Blood Cell 3.98(L) 4.58 - 5.54 x10(6)/mc L [facility] Hemoglobin 13.1(L) 13.7 - 16.5 gm/dL [facility] Hematocrit 39.4(L) 40.5 - 48.5 % [facility] Mean Cell Volume 99.0(H) 82.9 - 93.1 fL [facility] Mean Cell Hemoglobin 32.9(H) 27.5 - 32.1 pg [facility] Mean Cell Hemoglobin Concentration 33.2 32.0 - 35.7 gm/dL [facility] Platelet 220 145 - 357 x10(3)/mc L [facility] RDW Standard Deviation 44.6 36.0 - 45.0 [facility] RDW coefficient of variation 12.3 11.4 - 13.8 % [facility] Mean Platelet Volume 11.1 7.6 - 12.9 fL [facility] NRBC% auto 0.0 % [facility] NRBC Absolute 0.000 0.000 - 0.000 x10(3)/mc L [facility] Blood specimen (specimen) 05/11/2017 4:21 PM EDT 05/11/2017 4:29 PM EDT Narrative Resulting Agency Comment Spec In Lab Marcelle Dunnwill RAILCAR SWITCHMAN HEMATOLOGY ORDERA BLES Performing Organization Address [facility]/ZIP Co de Phone Number [facility] [place] [address] * CRP, acute inflammation (05/11/2017 4:21 PM EDT) C-Reactive Protein 2.3 <=4.9 mg/L [facility] Blood specimen (specimen) 05/11/2017 4:21 PM EDT 05/11/2017 4:29 PM EDT Narrative Resulting Agency Comment Spec In Lab Marcelle Dunnwill RAILCAR SWITCHMAN CHEMISTRY ORDERAB LES Performing Organization Address [facility] Co de Phone Number [facility] [place] [address] * (ABNORMAL) Sedimentation rate (05/11/2017 4:21 PM EDT) Sedimentation Rate Automated 19(H) 0 - 15 mm/hr [facility] Blood specimen (specimen) 05/11/2017 4:21 PM EDT 05/11/2017 4:29 PM EDT Narrative Resulting Agency Comment Spec In Lab Marcelle Dunnwill RAILCAR SWITCHMAN HEMATOLOGY ORDERA BLES Performing Organization Address [facility]/ZIP Co de Phone Number [facility] [place] [address] * (ABNORMAL) CMP w/fasting Glucose (05/11/2017 4:21 PM EDT) [facility] Glucose Fasting 91 65 - 99 mg/dL [facility] Comment: ?Fasting* Glucose Interpretive Criteria Normal ?65-99 mg/dL Impaired Fasting glucose ?100-125 mg/dL Consistent with Diabetes Mellitus ? >or= 126 mg/dL *Fasting is defined as no caloric intake for at least 8 hours In the absence of unequivocal hyperglycemia a plasma glucose value of >or= 126 mg/dL should be repeated on a subsequent day. Diagnosis and Classification of Diabetes Mellitus, Position Statement from the [place] [employer]. ??Diabetes Care, Volume 33, Supplement 1, Nov 2009 Blood Urea Nitrogen 20 10 - 20 mg/dL [facility] Creatinine 1.17 0.80 - 1.50 mg/dL [facility] Comment: Please note that the pediatric reference intervals supplied above were not validated at [facility] [place]. Results from pediatric patients should be interpreted in conjunction to the patient's age, height and muscle mass. Sodium 143 135 - 145 mmol/L [facility] Potassium 4.9 3.5 - 5.0 mmol/L [facility] Comment: Please note: ??Patients with WBC >100,000 may have falsely elevated Potassium levels. ??For accurate Potassium quantification in these patients send serum separator tube (gold top) for subsequent determinations. ??Contact the Clinical Chemistry Laboratory if there are any questions. Chloride 103 98 - 107 mmol/L [facility] Carbon Dioxide 26 22 - 31 mmol/L [facility] Anion Gap 14 5 - 15 mmol/L [facility] Calcium 9.9 8.5 - 10.5 mg/dL [facility] Protein, Total 8.2(H) 6.1 - 8.0 gm/dL [facility] Albumin 4.3 3.2 - 5.2 gm/dL [facility] Aspartate Aminotransferase 13 0 - 39 unit/L [facility] Alanine Aminotransferase 21 0 - 55 unit/L [facility] Alkaline Phosphatase 58 40 - 120 unit/L [facility] Bilirubin, Total 0.3 0.2 - 1.3 mg/dL [facility] Bilirubin, Direct 0.1 0.0 - 0.3 mg/dL [facility] Est Glomerular Filtration Rate >60 >=60 [facility] Comment: This estimated GFR (eGFR) [...] the following links into your internet browser. [email or web address] Blood specimen (specimen) 05/11/2017 4:21 PM EDT 05/11/2017 4:29 PM EDT Narrative Resulting Agency Comment Spec In Lab Marcelle Weinberg RAILCAR SWITCHMAN CHEMISTRY ORDERAB LES Performing Organization Address City/State/[facility] Co de Phone Number [facility] [place] [address] documented in this encounter Visit Diagnoses Diagnosis Ulcerative colitis without complications, unspecified location documented in this encounter Care Teams Lining Scrubber Relationship Specialty Start Date End Date Maximilian Fall MD [address] [place] [address] PCP - General 10/01/11 02/13/21 documented as of this encounter
--- OUTSIDE RECORDS SUMMARY | 2024-06-29 16:05 | XMS_ITS | Encounter Summary ---
Author Organization [facility] [place] [address] Care Team Providers Care Clay Processing Factory Worker Name Role Phone Maximilian Fall MD Primary Care Provider [phone] Reason for Visit * Reason Onset Date Comments Prior Authorization 05/10/2018 Encounter Details Date Type Department Care Team (Late st Contact Info) Description 05/10/2018 Telephone [place] [address] Jarret oRa RNsearch manager Social History Tobacco Use Types Packs/Day Years [...] Telephone Encounter - Jarret Roa RN - 05/10/2018 2:31 PM EDT Prior Authorization Medication: Uceris Rectal foam 2 mg/actuation Dosage: 2 mg Frequency & Route: 2 mg BID x 2 weeks, then 2 mg daily x 4 weeks Insurance & Phone #: [employer] [facility] Part D ID #: [id number] Trialed (dosage, frequency): hydrocortisone enemas (causes nausea), sulfasalazine, canasa (caused pelvic pain), cortifoam (manufacturing shortage), Asacol, Rowasa, prednisone Diagnosis/ICD-10: 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 Notes: Submitted via CoverMyMeds Approved documented in this encounter Plan of Treatment Upcoming Encounters Date Type Department Care Team (Late st Contact Info) Description 08/15/2024 9:00 AM EDT Office [place] [phone] Dion Barlow MD [facility] [place] [address] 09/01/2024 11:20 AM EDT Office Visit Dermatology at [place] [address] [place] [phone] Gómez Mercer MD [facility] [place] [address] 09/21/2024 2:45 PM EDT Office Visit [facility] [place] [address] Trung Hoyos MD [facility] [place] [address] documented as of this encounter Visit Diagnoses Not on filedocumented in this encounter Care Teams [employer] Factory Worker Relationship Specialty Start Date End Date Maximilian Fall MD [address] [place] [address] [address] [place] [address] PCP - General 10/01/11 02/13/21 documented as of this encounter
--- OUTSIDE RECORDS SUMMARY | 2024-06-29 16:05 | XMS_ITS | Encounter Summary ---
Author Organization [facility] [place] [address] Care Team Providers Care Cinder Block Maker Name Role Phone Maximilian Fall MD Primary Care Provider [phone] Reason for Visit * Reason Comments Follow-up Encounter Details Date Type Department Care Team (Late st Contact Info) Description 05/03/2018 8:30 AM EDT Office [place] [address] Dion Barlow MD [facility] [place] [address] Ulcerative pancolitis with complication Social History Tobacco Use Types [...] Sign Reading Time Taken Comments Blood Pressure 154/79 05/03/2018 8:37 AM EDT Pulse 58 05/03/2018 8:37 AM EDT Temperature - - Respiratory Rate - - Oxygen Saturation - - Inhaled Oxygen Concentration - - Weight 114.8 kg (253 lb) 05/03/2018 8:37 AM EDT w/ shoes Height 193 cm (6' 4) 05/03/2018 8:37 AM EDT Body Mass Index 30.8 05/03/2018 8:37 AM EDT documented in this encounter Patient Instructions * Patient Instructions* Dion Barlow MD - 05/03/2018 8:30 AM EDT # Continue sulfasalazine 4 tabs twice daily # Continue folic acid 1 tab daily # Continue hydrocortisone enemas but try once per week. If bleeding recurs, go back to twice per week. If cortifoam becomes available again, would switch back to that. # Check complete blood count, kidney testing (creatinine), and liver tests annually to evaluate forrare complications from IBD (PSC) and from mesalamine (interstitial nephritis, abnormal LFTs, myelosuppression). Will check today. # Colonoscopy again spring 2018. # Avoid non-steroidal anti-inflammatory medications (NSAIDs) including but not limited to Advil, ibuprofen, Motrin, Aleve, Excedrin, naproxen, Mobic, indomethacin, and aspirin. Acetaminophen (Tylenol) is okay for aches and pains. # Follow-up in the office in 6 months with Farideh Weinberg APRN and then with me the following visit. documented in this encounter Progress Notes * Dion Barlow MD - 05/03/2018 8:30 AM EDT Problem List ?? Diagnosis ??? Ulcerative colitis ? Overview Note: ? Colonoscopy 04/08/10 (Dr. Gomes [facility]) - inflammation only within the rectum and sigmoid; extent of the exam was to the hepatic flexure; biopsies proximal to the sigmoid nl ?? [place] [place] active colitis in the sigmoid colon [...] to see me to follow-up ulcerative colitis. I last saw him in October. Last colonoscopy in January 2017. There was patchy mild left-sided colitis. ?? He is on sulfasalazine 4 tabs twice daily. Hydrocortisone enemas have also helped in the past. He feels like after taking enemas, the next morning he feels nauseated. Still on sulfasalazine 4 tabs bid. Bowel movements are pretty good. Going 5 times per day for semi-formed stools. No bleeding. Was more symptomatic last month with up [...] symptoms or easy bruising or bleeding. Vitals: 05/03/18 0837 BP: 154/79 Pulse: 58 Weight: 114.8 kg (253 lb) Height: 193 cm (6' 4) Wt Readings from Last 3 Encounters: 05/03/18 114.8 kg (253 lb) 10/29/17 (!) 115.4 kg (254 lb 6.4 oz) 05/11/17 (!) 116.1 kg (256 lb) Physical Exam Constitutional: He appears well-developed [...] left-sided. On Sulfasalazine 8 tabs daily and cortenemas now. Symptomatically, he was much better on Cortifoam than with cortenemas -even twice per week. The enemas seem to cause more cramping and generalized lower abdominal discomfort. Unfortunately, Cortifoam is currently on a manufacturing shortage. When available, we can try and switch him back to Cortifoam. A new product, budesonide (Uceris), is now available. We will look into this as an alternative as he may tolerate this well. Otherwise, we will continue sulfasalazine his current dose. He will have his annual labs checked today. Next due for colonoscopy in spring 2018. ?? We discussed the following recommendations that were printed out for the patient: # Continue sulfasalazine 4 tabs twice daily # Continue folic acid 1 tab daily # Continue hydrocortisone enemas but try once per week. If bleeding recurs, go back to twice per week. If cortifoam becomes available again, would switch back to that. # Check complete blood count, kidney testing (creatinine), and liver tests annually to evaluate forrare complications from IBD (PSC) and from mesalamine (interstitial nephritis, abnormal LFTs, myelosuppression). Will check today. # Colonoscopy again spring 2018. # Avoid non-steroidal anti-inflammatory medications (NSAIDs) including but not limited to Advil, ibuprofen, Motrin, Aleve, Excedrin, naproxen, Mobic, indomethacin, and aspirin. Acetaminophen (Tylenol) is okay for aches and pains. # Follow-up in the office in 6 months with Farideh Weinberg APRN and then with me the following visit. 15 min of this 25 min [id number] visit was spent counseling the patient in the issues outlined above. Davina Barlow MD Coordinator Hotelsphysical medicine physician Section of Gastroenterology [place] [address] CC: Maximilian Fall MD [address] [place] [address] documented in this encounter Miscellaneous Notes * Addendum Note - Megha Spencer - 05/03/2018 9:35 AM EDTAddended by: MEGHA SPENCER on: 05/03/2018 09:35 AM Modules accepted: Orders documented in this encounter Plan of Treatment Upcoming Encounters Date Type Department Care Team (Late st Contact Info) Description 08/15/2024 9:00 AM EDT Office [place] [address] Dion Barlow MD [facility] [place] [address] 09/01/2024 11:20 AM EDT Office Visit Dermatology at [facility] [address] [place] [phone] Gómez Mercer MD [facility] DR EDD[place] [address] 09/21/2024 2:45 PM EDT Office Visit [facility] at [facility] [place] [phone] Trung Hoyos MD [facility] [place] [address] documented as of this encounter Procedures Procedure Name Priority Date/Time Associated Diagnosis Comments CRP, ACUTE INFLAMMATION Routine 05/03/2018 9:46 AM EDT Ulcerative pancolitis with complication HEMOGRAM Routine 05/03/2018 9:46 AM EDT Ulcerative pancolitis with complication DIFFERENTIAL, AUTOMATED Routine 05/03/2018 9:46 AM EDT Ulcerative pancolitis with complication CBC (WITH DIFF) Routine 05/03/2018 9:46 AM EDT Ulcerative pancolitis with complication COMPREHENSIVE METABOLIC PANEL Routine 05/03/2018 9:46 AM EDT Ulcerative pancolitis with complication documented in this encounter Results * Differential, Automated (05/03/2018 9:46 AM EDT) Neutrophil % 62.5 % [facility] Neutrophil Absolute 3.86 1.70 - 6.10 x10(3)/[facility] Lymph % 27.2 % [facility] Lymphocytes Abs 1.7 0.9 - 3.2 x10(3)/[facility] Monocyte % 7.1 % [facility] Monocyte Abs 0.4 0.3 - 0.9 x10(3)/[facility] Eos % 2.1 % [facility] Eosinophils Abs 0.1 0.0 - 0.4 x10(3)/[facility] Basophil % 0.6 % [facility] Baso Absolute 0.0 0.0 - 0.1 x10(3)/[facility] Immature Gran % 0.50 % [facility] Comment: Immature granulocytes(IG's)percentage and absolute count will include metamyelocytes, myelocytes, and promyelocytes. Blood smears from CBCs yielding IG's will be scanned manually for concordance. If this scan disagrees with the automated IG or if promyelocytes are noted, a manual differential will be performed. Immature Gran Absolute 0.03 0.00 - 0.04 x10(3)/[facility] Blood specimen (specimen) 05/03/2018 9:46 AM EDT 05/03/2018 10:12 AM EDT Narrative Resulting Agency Comment Spec In Lab L Karthik Barlow MD HEMATOLOGY ORDERABLE S [facility] [place] [address] * (ABNORMAL) Hemogram (05/03/2018 9:46 AM EDT) White Blood Cell 6.2 4.0 - 9.5 x10(3)/[facility]ORATORY Red Blood Cell 4.02(L) 4.58 - 5.54 x10(6)/[facility] Hemoglobin 13.0(L) 13.7 - 16.5 gm/dL [facility] Hematocrit 39.7(L) 40.5 - 48.5 % [facility] Mean Cell Volume 98.8(H) 82.9 - 93.1 fL [facility] Mean Cell Hemoglobin 32.3(H) 27.5 - 32.1 pg [facility] Mean Cell Hemoglobin Concentration 32.7 32.0 - 35.7 gm/dL [facility] Platelet 202 145 - 357 x10(3)/ L [facility] RDW Standard Deviation 45.3(H) 36.0 - 45.0 fL [facility] RDW coefficient of variation 12.5 11.4 - 13.8 % [facility] Mean Platelet Volume 11.2 7.6 - 12.9 fL [facility] NRBC% auto 0.0 % [facility] NRBC Absolute 0.000 0.000 - 0.000 x10(3)/mc L [facility] Blood specimen (specimen) 05/03/2018 9:46 AM EDT 05/03/2018 10:12 AM EDT Narrative Resulting Agency Comment Spec In Lab L Karthik Barlow MD HEMATOLOGY ORDERABLE S Performing Organization Address [facility] Co de Phone Number [facility] [place] [address] * CRP, acute inflammation (05/03/2018 9:46 AM EDT) C-Reactive Protein 3.1 <=4.9 mg/L [facility] Blood specimen (specimen) 05/03/2018 9:46 AM EDT 05/03/2018 10:12 AM EDT Narrative Resulting Agency Comment Spec In Lab L Karthik Barlow MD CHEMISTRY ORDERABLES Performing Organization Address [facility] Co de Phone Number [facility] [place] [address] * Comprehensive metabolic panel (non-fasting) (05/03/2018 9:46 AM EDT) Glucose 110 65 - 199 mg/dL [facility] Comment:Diabetes: >=200 mg/d L plus symptoms Blood Urea Nitrogen 13 10 - 20 mg/dL [facility] Creatinine 0.92 0.80 - 1.50 mg/dL [facility] Sodium 143 135 - 145 mmol/L [facility] Potassium 4.4 3.5 - 5.0 mmol/L [facility] Comment: Please note: ??Patients with WBC >100,000 may have falsely elevated Potassium levels. ??For accurate Potassium quantification in these patients send serum separator tube (gold top) for subsequent determinations. ??Contact the Clinical Chemistry Laboratory if there are any questions. Chloride 105 98 - 107 mmol/L [facility] Carbon Dioxide 27 22 - 31 mmol/L [facility] Anion Gap 11 5 - 15 mmol/L [facility] Calcium 9.9 8.5 - 10.5 mg/dL [facility] Protein, Total 7.7 6.1 - 8.0 gm/dL [facility] Albumin 4.1 3.2 - 5.2 gm/dL [facility] Aspartate Aminotransferase 11 0 - 39 unit/L [facility] Alanine Aminotransferase 13 0 - 55 unit/L [facility] Alkaline Phosphatase 61 40 - 120 unit/L [facility] Bilirubin, Total 0.3 0.2 - 1.3 mg/dL [facility] Est Glomerular Filtration Rate >60 >=60 [facility] Comment: The reported eGFR should be multiplied by 1.2 for patients. The MDRD is not an appropriate measure of renal function for patients with body mass extremes or in patients with acute kidney failure. http://Emot[employer].to-BBB/DHnkdep http://[employer]/DHMCnkf Blood specimen (specimen) 05/03/2018 9:46 AM EDT 05/03/2018 10:12 AM EDT Narrative Resulting Agency Comment Spec In Lab L Karthik Barlow MD CHEMISTRY ORDERABLES [facility] [place] [address] documented in this encounter Visit Diagnoses Diagnosis Ulcerative pancolitis with complication documented in this encounter Care Teams Cinder Block Maker Relationship Specialty Start Date End Date Maximilian Fall MD [address] [place] [address] PCP - General 10/01/11 02/13/21 documented as of this encounter
--- OUTSIDE RECORDS SUMMARY | 2024-06-29 16:05 | XMS_ITS | Encounter Summary ---
Author Organization [facility] [place] [address] Care Team Providers Care Bus Person Dishwasher Name Role Phone Maximilian Fall MD Primary Care Provider [phone] Encounter Details Date Type Department Care Team (Late st Contact Info) Description 03/13/2016 - 03/13/2016 11:59 PM EDT Hospital Encounter [place] [phone] Dr Thomas Temporary Pain Discharge Disposition: Home [...] 9:00 AM EDT Office [place] [address] Dion Barlow MD [facility] [place] [address] 09/01/2024 11:20 AM EDT Office Visit Dermatology at [address] [address] Gómez Mercer MD [facility] [place] [address] 09/21/2024 2:45 PM EDT Office Visit [facility] [place] [address] Trung Hoyos MD [facility] [place] [address] documented as of this encounter Procedures Procedure Name Priority Date/Time Associated Diagnosis Comments FILM LIBRARY STORAGE ONLY CT ABDOMEN AND PELVIS Routine 03/13/2016 12:00 AM EDT Pain documented in this encounter Results * Film Library- Storage Only CT Abdomen & Pelvis (03/13/2016 12:00 AM EDT) Narrative [facility] - 03/22/2016 8:20 AM EDT This exam is for storage only and is auto-finalizing. Dr Leiva [facility] FILM LIBRARY ORD ERABLES [place], [place] documented in this encounter Visit Diagnoses Diagnosis Pain Generalized pain documented in this encounter Care Teams Bus Person Dishwasher Relationship Specialty Start Date End Date Maximilian Fall MD [address] [place] [address] PCP - General 10/01/11 02/13/21 documented as of this encounter
--- OUTSIDE RECORDS SUMMARY | 2024-06-29 16:05 | XMS_ITS | Encounter Summary ---
Author Organization [facility] [place] [address] Care Team Providers Care Automated Equipment Engineer Technician Name Role Phone Maximilian Fall MD Primary Care Provider [phone] Encounter Details Date Type Department Care Team (Latest Contact Info) Description 11/02/2018 1:00 PM EST Office [place] [address] Marcelle Weinberg, MANAGER [facility] [place] [address] Left sided colitis without complications Social History [...] Sign Reading Time Taken Comments Blood Pressure 142/75 11/02/2018 1:23 PM EST Pulse 60 11/02/2018 1:23 PM EST Temperature - - Respiratory Rate - - Oxygen Saturation - - Inhaled Oxygen Concentration - - Weight 114.7 kg (252 lb 12.8 oz) 11/02/2018 1:23 PM EST Height 193 cm (6' 4) 11/02/2018 1:23 PM EST Body Mass Index 30.77 11/02/2018 1:23 PM EST documented in this encounter Patient Instructions * Patient Instructions* Marcelle Weinberg APRN - 11/02/2018 1:00 PM EST We discussed the following recommendations that were printed out for the patient: # Submit stool studies # please get labs today # Continue sulfasalazine 4 tabs twice daily # Continue folic acid 1 tab daily # Restart Uceris foam enema 2x daily x2 weeks; then once every night x4 weeks then stop # please call us end of the week if you have not heard back from us to get the results of stool studies. # Colonoscopy again spring 2018. # Avoid non-steroidal anti-inflammatory medications (NSAIDs) including but not limited to Advil, ibuprofen, Motrin, Aleve, Excedrin, naproxen, Mobic, indomethacin, and aspirin. Acetaminophen (Tylenol) is okay for aches and pains. # follow up with your surgeon documented in this encounter Progress Notes * Marcelle Weinberg APRN - 11/02/2018 1:00 PM EST Problem List? Diagnosis? Ulcerative colitis ? Overview Note:? Colonoscopy 04/08/10 (Dr. Gomes [facility]) - inflammation only within the rectum and sigmoid; extent of the exam was to the hepatic flexure; biopsies proximal to the sigmoid nl ?? [place] [place] active colitis in the sigmoid [...] ? Asthma ? INTERVAL HISTORY: Mr. Rodriguez comes back to see me to follow-up ulcerative colitis. Last seen Dr. Osullivan 04/2018. Currently on sulfasalazine 4 tabs twice daily and folic acid 1 tab daily; Took Uceris enema , off for about 4 weeks now. He has been doing well until he underwent left inguinal hernia repair at [facility] 2 weeks ago. Once he was discharged home, about 3 days later started having multiple diarrhea. He was given IV abx during surgery but no oral abx given at home. Yesterday, he had bm12x/day, loose, noted blood 2x only. + nocturnal bm 2x last night. Today had bm 5x so far. No bleeding. He started taking Imodium AD 1 tab BID and it helped slowed it down Yesterday had abdominal pain 2x, just mild cranpy pain. He is still very sore on his left hernia repair site and has a f/u with his surgeon tomorrow. He is eating. Weight stable. No n/v No f/c. ? REVIEW OF SYSTEMS: as above, the rests negative. Past Medical History: Diagnosis Date ??? Asthma 10/01/2011 ??? Diabetes mellitus 10/01/2011 ??? GERD (gastroesophageal reflux disease) 10/01/2011 ??? Hearing loss 10/01/2011 ??? Hydrocele 10/01/2011 ??? Ulcerative colitis 10/01/2011 Past Surgical History: Procedure Laterality Date ??? PRO COLONOSCOPY, BIOPSY N/A 02/12/2017 COLONOSCOPY FLEXIBLE, WITH BX (WRVU 3.66) performed by Dion Osullivan MD at [facility] ENDOSCOPY ??? PRO COLONOSCOPY, DIAGNOSTIC 11/27/2011 COLONOSCOPY, DIAGNOSTIC performed by Dion OSULLIVAN at [facility] ENDOSCOPY ??? PRO COLONOSCOPY, DIAGNOSTIC 07/13/2014 COLONOSCOPY, DIAGNOSTIC performed by Dion Osullivan MD at [facility] ENDOSCOPY ??? PRO SIGMOIDOSCOPY, DIAGNOSTIC 03/16/2012 FLEXIBLE SIGMOIDOSCOPY performed by YUDI MALLOY at [facility] ENDOSCOPY ??? UPPER GI ENDOSCOPY, EXAM 10/01/2012 UPPER GI ENDOSCOPY performed by Dion OSULLIVAN at [facility] ENDOSCOPY Social History Socioeconomic History ??? Marital status: Spouse name: Not on file ??? Number [...] Tobacco Use ??? Smoking status: Former Smoker Packs/day: 4.00 Years: 30.00 Pack years: 120.00 Types: Cigarettes Last attempt to quit: 10/01/1992 Years since quittin.1 ??? Smokeless tobacco: Never Used Substance and Sexual Activity ??? Alcohol use: No ??? Drug use: No ??? Sexual activity: Not on file Other Topics Concern ??? Not on file Social History Narrative ??? Not on file No family history on file. Vitals: 11/02/18 1323 BP: 142/75 Pulse: 60 Weight: 114.7 kg (252 lb 12.8 oz) Height: 193 cm (6' 4) Physical Exam Constitutional: He appears well-developed and well-nourished. No distress. Cardiovascular: Normal rate and regular rhythm. Pulmonary/Chest: Effort normal and breath sounds normal. Abdominal: Soft. Bowel sounds are normal. He exhibits no distension (obese abdomen). There is no tenderness. RECENT TESTINGS: Results for NAYA RODRIGUEZ ( ) as of 11/01/2018 18:15 Ref. Range 05/03/2018 09:46 WBC Latest Ref Range: 4.0 - 9.5 x10(3)/mcL 6.2 RBC Latest Ref Range: 4.58 - 5.54 x10(6)/mcL 4.02 (L) Hemoglobin Latest Ref Range: 13.7 - 16.5 gm/dL 13.0 (L) Hematocrit Latest Ref Range: 40.5 - 48.5 % 39.7 (L) MCV Latest Ref Range: 82.9 - 93.1 fL 98.8 (H) MCH Latest Ref Range: 27.5 - 32.1 pg 32.3 (H) MCHC Latest Ref Range: 32.0 - 35.7 gm/dL 32.7 RDWSD Latest Ref Range: 36.0 - 45.0 fL 45.3 (H) RDWCV Latest Ref Range: 11.4 - 13.8 % 12.5 Platelets Latest Ref Range: 145 - 357 x10(3)/mcL 202 MPV Latest Ref Range: 7.6 - 12.9 fL 11.2 nRBC % Auto Latest Units: % 0.0 nRBC Abs Auto Latest Ref Range: 0.000 - 0.000 x10(3)/mcL 0.000 Neutr Abs (ANC) Latest Ref Range: 1.70 - 6.10 x10(3)/mcL 3.86 Neutrophils % Latest Units: % 62.5 Immature Gran % Latest Units: % 0.50 Lymphocytes % Latest Units: % 27.2 Monocytes % Latest Units: % 7.1 Eosinophils % Latest Units: % 2.1 Basophils % Latest Units: % 0.6 Sherry Gran Abs Latest Ref Range: 0.00 - 0.04 x10(3)/mcL 0.03 Lymphocytes Abs Latest Ref Range: 0.9 - 3.2 x10(3)/mcL 1.7 Monocyte Abs Latest Ref Range: 0.3 - 0.9 x10(3)/mcL 0.4 Eosinophils Abs Latest Ref Range: 0.0 - 0.4 x10(3)/mcL 0.1 Basophils Abs Latest Ref Range: 0.0 - 0.1 x10(3)/mcL 0.0 Sodium Latest Ref Range: 135 - 145 mmol/L 143 Potassium Latest Ref Range: 3.5 - 5.0 mmol/L 4.4 Chloride Latest Ref Range: 98 - 107 mmol/L 105 CO2 Latest Ref Range: 22 - 31 mmol/L 27 Anion Gap Latest Ref Range: 5 - 15 mmol/L 11 BUN Latest Ref Range: 10 - 20 mg/dL 13 Creatinine Latest Ref Range: 0.80 - 1.50 mg/dL 0.92 eGFR Latest Ref Range: >=60 >60 Glucose Lvl Latest Ref Range: 65 - 199 mg/dL 110 Calcium Latest Ref Range: 8.5 - 10.5 mg/dL 9.9 Total Protein Latest Ref Range: 6.1 - 8.0 gm/dL 7.7 Albumin Latest Ref Range: 3.2 - 5.2 gm/dL 4.1 Total Bilirubin Latest Ref Range: 0.2 - 1.3 mg/dL 0.3 Alk Phos Latest Ref Range: 40 - 120 unit/L 61 AST Latest Ref Range: 0 - 39 unit/L 11 ALT Latest Ref Range: 0 - 55 unit/L 13 CRP Latest Ref Range: <=4.9 mg/L 3.1 ASSESSMENT AND PLAN:?? Ulcerative colitis. It has been patchy (likely due to topical therapies), mild, and primarily left-sided. On Sulfasalazine 8 tabs daily and just finished his Uceris enema 4 weeks ago. He has done well until after his left hernia surgery 2 weeks ago that he started having worsening diarrhea again and abdominal pain. DDX: UC flare vs infection. We will obtain lab today and also get stool studies for C diff and calprotectin. In the meantime, we will restart his Uceris enema since it had helped him in the past. If stool studies came back positive for C diff then will consider stopping Uceris enema and start po Vanco. He would call our clinic nurse to f/u on stool studies results at the end of the week as I am away starting tomorrow. Next due for colonoscopy in spring 2018. ?? He would follow up with his surgeon tomorrow regarding left hernia surgical site pain. ?? We discussed the following recommendations that were printed out for the patient: # Submit stool studies # please get labs today # Continue sulfasalazine 4 tabs twice daily # Continue folic acid 1 tab daily # Restart Uceris foam enema 2x daily x2 weeks; then once every night x4 weeks then stop # please call us end of the week if you have not heard back from us to get the results of stool studies. # Colonoscopy again spring 2018. # Avoid non-steroidal anti-inflammatory medications (NSAIDs) including but not limited to Advil, ibuprofen, Motrin, Aleve, Excedrin, naproxen, Mobic, indomethacin, and aspirin. Acetaminophen (Tylenol) is okay for aches and pains. # follow up with your surgeon ?? RTC with Dr. Osullivan at next available opening. ?? documented in this encounter Plan of Treatment Upcoming Encounters Date Type Department Care Team (Late st Contact Info) Description 08/15/2024 9:00 AM EDT Office [place] [address] Dion Osullivan MD [facility] [place] [address] 09/01/2024 11:20 AM EDT Office Visit Dermatology at [facility] [address] [place] [phone] Gómez Mercer MD [facility] DR EDDIE [place] [address] 09/21/2024 2:45 PM EDT Office Visit Pain [place] [address] Trung Hoyos MD [facility] PAIN MANAGEMENT [place], [place] [id number] documented as of this encounter Procedures Procedure Name Priority Date/Time Associated Diagnosis Comments CRP, ACUTE INFLAMMATION Routine 11/02/2018 2:35 PM EST Left sided colitis without complications HEMOGRAM Routine 11/02/2018 2:35 PM EST Left sided colitis without complications DIFFERENTIAL, AUTOMATED Routine 11/02/2018 2:35 PM EST Left sided colitis without complications SEDIMENTATION RATE Routine 11/02/2018 2: 35 PM EST Left sided colitis without complications CBC (WITH DIFF) Routine 11/02/2018 2:35 PM EST Left sided colitis without complications COMPREHENSIVE METABOLIC PANEL Routine 11/02/2018 2:35 PM EST Left sided colitis without complications documented in this encounter Results * Differential, Automated (11/02/2018 2:35 PM EST) Neutrophil % 61.6 % [facility] Neutrophil Absolute 4.08 1.70 - 6.10 x10(3)/[facility] Lymph % 27.2 % [facility] Lymphocytes Abs 1.8 0.9 - 3.2 x10(3)/[facility] Monocyte % 6.9 % [facility] Monocyte Abs 0.5 0.3 - 0.9 x10(3)/[facility] Eos % 2.9 % [facility] Eosinophils Abs 0.2 0.0 - 0.4 x10(3)/[facility] Basophil % 0.8 % [facility] Baso Absolute 0.0 0.0 - 0.1 x10(3)/[facility] Immature Gran % 0.60 % [facility] Comment: Immature granulocytes(IG's)percentage and absolute count will include metamyelocytes, myelocytes, and promyelocytes. Blood smears from CBCs yielding IG's will be scanned manually for concordance. If this scan disagrees with the automated IG or if promyelocytes are noted, a manual differential will be performed. Immature Gran Absolute 0.04 0.00 - 0.04 x10(3)/[facility] Blood specimen (specimen) 11/02/2018 2:35 PM EST 11/02/2018 2:42 PM EST Narrative Resulting Agency Comment Spec In Lab Marcelle Weinberg APRN HEMATOLOGY ORDERA BLES Performing Organization Address City/State/[facility] Co de Phone Number [facility] [place] [address] * (ABNORMAL) Hemogram (11/02/2018 2:35 PM EST) White Blood Cell 6.6 4.0 - 9.5 x10(3)/mc L [facility] Red Blood Cell 4.08(L) 4.58 - 5.54 x10(6)/ L [facility] Hemoglobin 13.1(L) 13.7 - 16.5 gm/dL [facility] Hematocrit 40.0(L) 40.5 - 48.5 % [facility] Mean Cell Volume 98.0(H) 82.9 - 93.1 fL [facility] Mean Cell Hemoglobin 32.1 27.5 - 32.1 pg [facility] Mean Cell Hemoglobin Concentration 32.8 32.0 - 35.7 gm/dL [facility] Platelet 236 145 - 357 x10(3)/mc L [facility] RDW Standard Deviation 44.3 36.0 - 45.0 [facility] RDW coefficient of variation 12.3 11.4 - 13.8 % [facility] Mean Platelet Volume 10.6 7.6 - 12.9 [facility] NRBC% auto 0.0 % [facility] NRBC Absolute 0.000 0.000 - 0.000 x10(3)/mc L [facility] Blood specimen (specimen) 11/02/2018 2:35 PM EST 11/02/2018 2:42 PM EST Narrative Resulting Agency Comment Spec In Lab Marcelle Weinberg MANAGER [facility] HEMATOLOGY ORDERA BLES Performing Organization Address City/[facility]/ZIP Co de Phone Number [facility] [place] [address] * (ABNORMAL) CRP, acute inflammation (11/02/2018 2:35 PM EST) C-Reactive Protein 5.0(H) <=4.9 mg/L [facility] Blood specimen (specimen) 11/02/2018 2:35 PM EST 11/02/2018 2:42 PM EST Narrative Resulting Agency Comment Spec In Lab MonalisaDg Weinberg MANAGER SH[facility] CHEMISTRY ORDERAB LES Performing Organization Address City/[facility]/ZIP Co de Phone Number [facility] [place] [address] * (ABNORMAL) Sedimentation rate (11/02/2018 2:35 PM EST) Sedimentation Rate Automated 27(H) 0 - 15 mm/hr [facility] Blood specimen (specimen) 11/02/2018 2:35 PM EST 11/02/2018 2:42 PM EST Narrative Resulting Agency Comment Spec In Lab Marcelle Dunnjeovannyv MANAGER [facility] HEMATOLOGY ORDERA BLES [facility] [place] [address] * (ABNORMAL) Comprehensive metabolic panel (non-fasting) (11/02/2018 2:35 PM EST) Glucose 87 65 - 199 mg/dL [facility] Comment:Diabetes: >=200 mg/d L plus symptoms Blood Urea Nitrogen 15 10 - 20 mg/dL [facility] Creatinine 1.03 0.80 - 1.50 mg/dL [facility] Sodium 140 135 - 145 mmol/L [facility] Potassium 4.3 3.5 - 5.0 mmol/L [facility] Comment: Please note: ??Patients with WBC >100,000 may have falsely elevated Potassium levels. ??For accurate Potassium quantification in these patients send serum separator tube (gold top) for subsequent determinations. ??Contact the Clinical Chemistry Laboratory if there are any questions. Chloride 103 98 - 107 mmol/L [facility] Carbon Dioxide 26 22 - 31 mmol/L [facility] Anion Gap 11 5 - 15 mmol/L [facility] Calcium 9.7 8.5 - 10.5 mg/dL [facility] Protein, Total 8.1(H) 6.1 - 8.0 gm/dL [facility] Albumin 4.0 3.2 - 5.2 gm/dL [facility] Aspartate Aminotransferase 12 0 - 39 unit/L [facility] Alanine Aminotransferase 14 0 - 55 unit/L [facility] Alkaline Phosphatase 73 40 - 120 unit/L [facility] Bilirubin, Total 0.4 0.2 - 1.3 mg/dL [facility] Est Glomerular Filtration Rate 73 >=60 mL/min/1. 73 m?? [facility] Comment: The eGFR was calculated using the CKD-EPI equation. As with all creatinine based estimates of kidney function, eGFR values calculated with the CKD-EPI equation are not accurate in patients with acute kidney failure, extremes of body mass or the acutely ill. http://[employer]/[facility] [place] eGFR 85 >=60 mL/min/1. 73 m?? [facility] Comment: The eGFR was calculated using the CKD-EPI equation. As with all creatinine based estimates of kidney function, eGFR values calculated with the CKD-EPI equation are not accurate in patients with acute kidney failure, extremes of body mass or the acutely ill. http://[employer]/[facility] Blood specimen (specimen) 11/02/2018 2:35 PM EST 11/02/2018 2:42 PM EST Narrative Resulting Agency Comment Spec In Lab Marcelle Weinberg MANAGER SHOP CHEMISTRY ORDERAB LES [facility] [place] [address] documented in this encounter Visit Diagnoses Diagnosis Left sided colitis without complications Left sided ulcerative (chronic) colitis documented in this encounter Care Teams Automated Equipment Engineer Technician Relationship Specialty Start Date End Date Maximilian Fall MD [address] [facility] [address] [place] [address] PCP - General 10/01/11 02/13/21 documented as of this encounter
--- OUTSIDE RECORDS SUMMARY | 2024-06-29 16:05 | XMS_ITS | Encounter Summary ---
Author Organization [facility] [place] [address] Care Team Providers Care Supervisor [employer] Name Role Phone Maximilian Fall MD Primary Care Provider [phone] Reason for Referral * Diagnostic Test (Routine) - Closed Specialty Diagnoses / Procedures Referred By Contwlilard t Referred To Contact Radiology Diagnoses Postoperative wound abscess, initial encounter Procedures CT Retroperitoneal Abscess Drain Minnie Johnson MD [facility] [place] [address] [facility] [place] [address] Referral ID Status Reason Start Date Expiration Date V isits Requested Visits Authorized [id number] Closed Specialty Service Requested 03/22/2016 03/22/2017 1 1 Encounter Details Date Type Department Care Team (Late st Contact Info) Description 03/22/2016 Orders [place] [phone] Minnie Johnson MD [facility] [place] [address] Postoperative wound abscess, initial encounter Social History Tobacco Use Types Packs/Day Years [...] as of this encounter Progress Notes * Minnie Johnson MD - 03/22/2016 8:29 AM EDT Images from the original note were not included. VIR PRE-PROCEDURE NOTE Name: Brian Rodriguez Date of : 1950 Referring Physician: Dr. Guerin from [facility] Indication: RLQ post-operative abscess Planned Procedure: CT guided abscess drain placement Chief Complaint/HPI: 65 y.o. male with PMHx significant for asthma, diabetes, and ulcerative colitis who is status post laparoscopic appendectomy on 03/13/2016 who noted RLQ pain several days post-op.He presented to [facility] ED and underwent a CT scan with findings consistent with RLQ abscess. We have been consulted for CT guided abscess drain placement. The patient has been admitted to [facility] and will be transferred back to [facility] following the procedure. OSH Labs: WBC 10.2, Hgb 12.7, Plt 323 (03/21/2016) Patient Active Problem List Diagnosis Code ??? Ulcerative colitis K51.90 ??? Diabetes mellitus E11.9 ??? Hearing loss H91.90 ??? GERD (gastroesophageal reflux disease) K21.9 ??? Hydrocele N43.3 ??? Asthma J45.909 Allergies Allergen Reactions ??? Erythromycin Base CIS - Unknown ??? Tetracyclines Current Outpatient Prescriptions on File Prior to Visit Medication Sig Dispense Refill ??? hydrocortisone (CORTIFOAM) 10 % (80 mg) Foam Place 1 applicator rectally nightly. 90 g 3 ??? lisinopril (PRINIVIL;ZESTRIL) 5 mg Tablet Take 5 mg by mouth daily. ??? insulin glargine (LANTUS) Solution Inject 50 Units subcutaneously nightly. ??? sulfaSALAzine (AZULFIDINE) 500 mg tablet Take 2,000 mg by mouth 2 times daily. ??? glipiZIDE (GLUCOTROL) 10 mg 24 hr tablet Take 10 mg by mouth 2 times daily. ??? folic acid (FOLVITE) 1 mg tablet Take 1 tablet by mouth daily. 90 tablet 3 ??? propranolol (INDERAL) 80 mg tablet Take 80 mg by mouth daily. ??? omeprazole (PRILOSEC) 20 mg capsule Take 40 mg by mouth daily. ??? fluticasone (FLOVENT) 110 mcg/Actuation inhaler Inhale 2 puffs into the lungs 2 times daily. ??? metFORMIN (GLUCOPHAGE) 500 mg tablet 500mg, PO, Twice daily No current facility-administered medications on file prior to visit. Pertinent ROS: as per HPI Labs: Lab Results Component Value Date/Time WBC 6.6 11/06/2015 10:24 AM HEMATOCRIT 41.7 11/06/2015 10:24 AM PLATELETS 216 11/06/2015 10:24 AM BUN 14 11/06/2015 10:24 AM CREATININE 1.15 11/06/2015 10:24 AM OSH Labs: WBC 10.2, Hgb 12.7, Plt 323 (03/21/2016) Imaging: CT Abdomen/Pelvis dated 03/21/2016: Physical Exam: Pending (to be performed in angio) ASA: Pending (to be assessed in angio) Mallampati Class: Pending (to be assessed in angio) Assessment / Plan: 65 y.o. male with history as above, who presents for CT guided RLQ abscess drainplacement. Prophylactic antibiotic: On Unasyn Planned access site: RLQ/Right flank Position:Right side up Labs: Per IR/CT Protocol Patient and case discussed with the attending IR physician, Dr. Hurtado. Minnie Johnson MD Radiology, PGY-2 Pager [phone] documented in this encounter Plan of Treatment Upcoming Encounters Date Type Department Care Team (Late st Contact Info) Description 08/15/2024 9:00 AM EDT Office [place] [address] Dion Barlow MD [facility] [place] [address] 09/01/2024 11:20 AM EDT Office Visit Dermatology at [facility] [address] [place] [address] Gómez Mercer MD [facility] DR [place] [address] 09/21/2024 2:45 PM EDT Office Visit Pain and Spine Center at [facility] [place] [address] Trung Hoyos MD [facility] [place] [address] documented as of this encounter Results * CT Retroperitoneal Abscess Drain (03/22/2016 12:34 PM EDT) Anatomical Region Laterality Modality Abdomen Computed Tomogra phy Narrative 03/22/2016 1:02 PM EDT VIR PROCEDURE NOTE Procedure: CT-guided RLQ?? drainage catheter placement (ACC # [id number]) Indication : 65 y.o. male with PMHx significant for asthma, diabetes, and ulcerative colitis who is status post laparoscopic appendectomy on 03/13/2016 who noted RLQ pain several days post-op. He presented to [facility] ED and underwent a CT scan with findings consistent with RLQ abscess. We have been consulted for CT guided abscess drain placement. The patient has been admitted to [facility] and will be transferred back to [facility] following the procedure. Technique: After discussing risks [...] SQ. Shireen Hurtado MD IMG CT ORDERABLES documented in this encounter Visit Diagnoses Diagnosis Postoperative wound abscess, initial encounter Postoperative wound abscess, initial encounter documented in this encounter Care Teams Supervisor [employer] Relationship Specialty Start Date End Date Maximilian Fall MD [address] [facility] [address] [place] [address] PCP - General 10/01/11 02/13/21 documented as of this encounter
--- OUTSIDE RECORDS SUMMARY | 2024-06-29 16:05 | XMS_ITS | Encounter Summary ---
Author Organization [facility] [place] [address] Care Team Providers Care Hardware Technician Name Role Phone Maximilian Fall MD Primary Care Provider [phone] Encounter Details Date Type Department Care Team (Late st Contact Info) Description 11/02/2018 Telephone [place] [address] Marcelle Weinberg, BRICK CHIMNEY SUPERVISOR [facility] [place] [address] Social History Tobacco Use Types Packs/Day Years [...] Miscellaneous Notes * Telephone Encounter - Marcelle Weinberg, JAZMINE - 11/02/2018 5:27 PM EST I called pt to review labs. See below. His ESR and CRP are mildly elevated. He would submit stool studies at local hospital tomorrow and would call our clinic nurse end of theweek to get results. He would follow the plan that we discssed in clinic today Ref. Range 11/02/2018 14:35 WBC Latest Ref Range: 4.0 - 9.5 [...] Latest Ref Range: <=4.9 mg/L 5.0 (H) documented in this encounter Plan of Treatment Upcoming Encounters Date Type Department Care Team (Late st Contact Info) Description 08/15/2024 9:00 AM EDT Office Visit Gastroenterology at [place] [phone] Dion Barlow MD [facility] [place] [address] 09/01/2024 11:20 AM EDT Office Visit Dermatology at [address] [phone] Gómez Mercer MD [facility] DR EDDIE S[place] [address] 09/21/2024 2:45 PM EDT Office Visit [facility] [place] [address] Trung Hoyos MD [facility] [place] [address] documented as of this encounter Visit Diagnoses Not on filedocumented in this encounter Care Teams Hardware Technician Relationship Specialty Start Date End Date Maximilian Fall MD [address] [place] [address] PCP - General 10/01/11 02/13/21 documented as of this encounter
--- OUTSIDE RECORDS SUMMARY | 2024-06-29 16:05 | XMS_ITS | Encounter Summary ---
Author Organization [facility] [place] [address] Care Team Providers Care Alterations Manager Name Role Phone Maximilian Fall MD Primary Care Provider [phone] Encounter Details Date Type Department Care Team (Late st Contact Info) Description 07/07/2016 Telephone [place] [phone] Bethany Trivedi RN Social History Tobacco Use [...] Telephone Encounter - Bethany Trivedi RN - 07/10/2016 1:47 PM EDT Cortifoam approved 07/07/16 until furhter notice Chinle id# [id number] * Telephone Encounter - Bethany Trivedi RN - 07/07/2016 12:10 PM EDT Formulary exception form sent in for Cortifoam enemas documented in this encounter Plan of Treatment Upcoming Encounters Date Type Department Care Team (Late st Contact Info) Description 08/15/2024 9:00 AM EDT Office [place] [phone] Dion Barlow MD [facility] [place] [address] 09/01/2024 11:20 AM EDT Office Visit Dermatology at [facility] [address] [place] [address] Gómez Mercer MD [facility] [place] [address] 09/21/2024 2:45 PM EDT Office Visit [facility] [place] [phone] Trung Hoyos MD [facility] [place] [address] documented as of this encounter Visit Diagnoses Not on filedocumented in this encounter Care Teams Alterations Manager Relationship Specialty Start Date End Date Maximilian Fall MD [address] [place] [address] PCP - General 10/01/11 02/13/21 documented as of this encounter
[2024-06-29] MEDS: Heparin in 0.45% NaCl 25,000 UNIT/250 ML BAG 10 UNIT IV (16:06)
--- OUTSIDE RECORDS SUMMARY | 2024-06-29 16:06 | XMS_ITS | Encounter Summary ---
[facility] [address] Care Team Providers Care Camp Dining Room Attendant Name Role Phone Maximilian Fall MD Primary Care Provider [phone] Encounter Details Date Type Department Care Team (Latest Contact Info) Description 11/06/2015 10:15 AM EST Laboratory Appointment Lab [address] [place] [phone] Ulcerative colitis, without complications; Diarrhea; Pain in right hip; Bilateral low back pain, with sciatica presence unspecified; Abdominal pain, unspecified abdominal location; Chronic ulcerative enterocolitis, unspecified complication Social History [...] encounter Miscellaneous Notes * Addendum Note - Chivo Beltrán - 11/06/2015 2:16 PM ESTAddended by: CHIVO BELTRÁN on: 11/06/2015 02:16 PM Modules accepted: Orders documented in this encounter Plan of Treatment Upcoming Encounters Date Type Department Care Team (Late st Contact Info) Description 08/15/2024 9:00 AM EDT Office Visit [place] [address] Dion Barlow MD [facility] [place] [address] 09/01/2024 11:20 AM EDT Office Visit Dermatology at [facility] [address] [place] [address] Gómez Mercer MD [facility] DR EDDIE [place] [address] 09/21/2024 2:45 PM EDT Office Visit [facility] [place] [address] Trung Hoyos MD [facility] [place] [address] documented as of this encounter Procedures Procedure Name Priority Date/Time Associated Diagnosis Comments C. DIFFICILE SCREEN Routine 11/06/2015 2 :30 PM EST Pain in right hip Bilateral low back pain, with sciatica presence unspecified Abdominal pain, unspecified abdominal location Chronic ulcerative enterocolitis, unspecified complication STOOL CULTURE SCREEN ([facility]/CGP/APD/[facility]) Routine 11/06/2015 1:49 PM EST Pain in right hip Bilateral low back pain, with sciatica presence unspecified Abdominal pain, unspecified abdominal location Chronic ulcerative enterocolitis, unspecified complication CAMPYLOBACTER ANTIGEN Routine 11/06/2015 1:49 PM EST Pain in right hip Bilateral low back pain, with sciatica presence unspecified Abdominal pain, unspecified abdominal location Chronic ulcerative enterocolitis, unspecified complication SHIGA TOXIN ASSAY Routine 11/06/2015 1:4 9 PM EST Pain in right hip Bilateral low back pain, with sciatica presence unspecified Abdominal pain, unspecified abdominal location Chronic ulcerative enterocolitis, unspecified complication STOOL CULTURE Routine 11/06/2015 1:49 PM EST Pain in right hip Bilateral low back pain, with sciatica presence unspecified Abdominal pain, unspecified abdominal location Chronic ulcerative enterocolitis, unspecified complication CRYPTOSPORIDIUM OOCYST ANTIGEN ([facility]/CGP/APD) Routine 11/06/2015 1:09 PM EST Pain in right hip Bilateral low back pain, with sciatica presence unspecified Abdominal pain, unspecified abdominal location Chronic ulcerative enterocolitis, unspecified complication GIARDIA/CRYPTOSPORIDIUM ANTIGENS ([facility]/CGP/APD/[facility]) Routine 11/06/2015 1:09 PM EST Pain in right hip Bilateral low back pain, with sciatica presence unspecified Abdominal pain, unspecified abdominal location Chronic ulcerative enterocolitis, unspecified complication GIARDIA ANTIGEN ([facility]/CGP/APD/[facility]) Routine 11/06/2015 1:09 PM EST Pain in right hip Bilateral low back pain, with sciatica presence unspecified Abdominal pain, unspecified abdominal location Chronic ulcerative enterocolitis, unspecified complication URINALYSIS WITH REFLEX CULTURE Routine 11/06/2015 1:00 PM EST Pain in right hip Bilateral low back pain, with sciatica presence unspecified Abdominal pain, unspecified abdominal location Chronic ulcerative enterocolitis, unspecified complication URINE CULTURE Routine 11/06/2015 1:00 PM EST HEMOGRAM STAT 11/06/2015 10:24 AM EST Ulcerative colitis, without complications Diarrhea DIFFERENTIAL, AUTOMATED STAT 11/06/20 10:24 AM EST Ulcerative colitis, without complications Diarrhea SEDIMENTATION RATE STAT 11/06/2015 10 :24 AM EST Ulcerative colitis, without complications Diarrhea CBC (WITH DIFF) STAT 11/06/2015 10:24 AM EST Ulcerative colitis, without complications Diarrhea CRP, CARDIAC RISK (HS CRP) STAT 11/06/2015 10:24 AM EST Ulcerative colitis, without complications Diarrhea COMPREHENSIVE METABOLIC PANEL STAT 11/06/2015 10:24 AM EST Ulcerative colitis, without complications Diarrhea documented in this encounter Results * C. Difficile Screen (11/06/2015 2:30 PM EST) C Diff Interp Negative Negative [facility] Stool specimen (specimen) 11/06/2015 2:30 PM EST 11/06/2015 2:30 PM EST Narrative Resulting Agency Comment Spec In Lab L Karthik Barlow MD MICROBIOLOGY - GENER AL ORDERABLES Performing Organization Address [facility] Phone Number [facility] * Shiga Toxin Detection (11/06/2015 1:49 PM EST) Shiga Toxin Assay EIA Negative for Shiga Toxin 1 EIA Negative for Shiga Toxin 2 [facility] Stool specimen (specimen) 11/06/2015 1:49 PM EST 11/06/2015 2:33 PM EST Narrative Resulting Agency Comment Spec In Lab L Karthik Barlow MD MICROBIOLOGY - GENER AL ORDERABLES Performing Organization Address [facility] Phone Number [facility] * Campylobacter Antigen (11/06/2015 1:49 PM EST) Campylobacter Ag Immunoassay Negative for Campylobacter Antigen [facility] Stool specimen (specimen) 11/06/2015 1:49 PM EST 11/06/2015 2:33 PM EST Narrative Resulting Agency Comment Spec In Lab L Karthik Barlow MD MICROBIOLOGY - GENER AL ORDERABLES Performing Organization Address [facility] Phone Number [facility] * Stool culture (11/06/2015 1:49 PM EST) Stool Culture No enteric pathogens isolated [facility] Stool specimen (specimen) 11/06/2015 1:49 PM EST 11/06/2015 2:33 PM EST Narrative Resulting Agency Comment Spec In Lab L Karthik Barlow MD MICROBIOLOGY - GENER AL ORDERABLES Performing Organization Address [facility] Phone Number [facility] * Cryptosporidium Oocyst Antigen (11/06/2015 1:09 PM EST) Cryptosporidium Antigen Negative Negative [facility] Stool specimen (specimen) 11/06/2015 1:09 PM EST 11/06/2015 2:28 PM EST Narrative Resulting Agency Comment Spec In Lab L Karthik Barlow MD MICROBIOLOGY - GENER AL ORDERABLES Performing Organization Address [facility] de Phone Number [facility] * Giardia antigen (11/06/2015 1:09 PM EST) Giardia Antigen Negative Negative [facility] Comment:Examination for othe r intestinal parasites requires foreign travel history. Stool specimen (specimen) 11/06/2015 1:09 PM EST 11/06/2015 2:28 PM EST Narrative Resulting Agency Comment Spec In Lab L Karthik Barlow MD MICROBIOLOGY - GENER AL ORDERABLES Performing Organization Address [facility] de Phone Number [facility] * (ABNORMAL) Urine culture (11/06/2015 1:00 PM EST) Urine Culture 50,000-99,000 cfu/ml Escherichia coli(A) [facility] Organism Escherichia coli(A) [facility] Urine specimen obtained by clean catch procedure (specimen) 11/06/2015 1:00 PM EST 11/06/2015 2:39 PM EST Narrative Resulting Agency Comment Spec In Lab Organism Antibiotic Method Susceptibility Escherichia coli Amikacin MICROSCAN METHOD Sensitive Escherichia coli Ampicillin MICROSCAN METHOD Resistant Escherichia coli Ampicillin + Sulbactam MICROSCAN METH OD Intermediate Escherichia coli Aztreonam MICROSCAN METHOD Sensitive Escherichia coli Cefazolin MICROSCAN METHOD Resistant Escherichia coli Cefepime MICROSCAN METHOD Sensitive Escherichia coli Ceftazidime MICROSCAN METHOD Sensitive Escherichia coli Ceftriaxone MICROSCAN METHOD Sensitive Escherichia coli Cefuroxime MICROSCAN METHOD Intermediate Escherichia coli Ciprofloxacin MICROSCAN METHOD Sensitive Escherichia coli Gentamicin MICROSCAN METHOD Sensitive Escherichia coli Levofloxacin MICROSCAN METHOD Sensitive Escherichia coli Meropenem MICROSCAN METHOD Sensitive Escherichia coli Nitrofurantoin MICROSCAN METHOD Sensitive Escherichia coli Piperacillin/Tazobactam MICROSCAN MET HOD Sensitive Escherichia coli Tetracycline MICROSCAN METHOD Sensitive Escherichia coli Tobramycin MICROSCAN METHOD Sensitive Escherichia coli Trimethoprim/Sulfa MICROSCAN METHOD Sensitive L Karthik Barlow MD MICROBIOLOGY - [facility] AL ORDERABLES [facility] * (ABNORMAL) Urinalysis with reflex Culture (11/06/2015 1:00 PM EST) Glucose, Urine Dipstick Negative Negative mg/dL [facility] Protein, Urine Dipstick 30(A) Negative mg/dL [facility] Bilirubin, Urine Dipstick Negative Negative mg/dL [facility] Comment: Clinical correlation required for positive Urine Bilirubin results as false positive may occur with some drugs and drug related products. If a false positive is suspected a serum total bilirubin should be considered if clinically indicated. Urobilinogen, Urine Dipstick Normal Normal mg/dL [facility] pH, Urn (dipstick) 5.0 5.0 - 8.0 [facility] Blood, Urine Dipstick Small(A) Negative mg/dL [facility] Ketone, Urine Dipstick Negative Negative mg/dL [facility] Nitrite, Urine Dipstick Positive(A) Negative [facility] Leukocytes, Urine Dipstick Large(A) Negative mcL [facility] Appearance, Urine Dipstick Hazy(A) Clear [facility] Specific [place] Urine Automated 1.020 1.002 - 1.030 [facility]ILL[facility] Color, Urine Dipstick Kristina Yellow [facility] RBC, Urine 10(H) 0 - 3 /HPF [facility] WBC, Urine 96(H) 0 - 3 /HPF [facility] WBC Clumps, Urine Rare(A) None /HPF [facility] Bacteria, Urine Many(A) None /HPF [facility] Squamous Epithelial Cells, Urine 2 <=4 /HPF [facility] Transitional Epithelial Cells, Urine 1 <=1 /HPF [facility] Hyaline Casts, Urine 4(H) 0 - 2 /LPF [facility] Reflex to Culture Yes [facility] Urine specimen obtained by clean catch procedure (specimen) 11/06/2015 1:00 PM EST 11/06/2015 2:10 PM EST Narrative Resulting Agency Comment Spec In Lab L Karthik Barlow MD URINE ORDERABLES Performing Organization Address [facility] Co de Phone Number [facility] * Differential, Automated (11/06/2015 10:24 AM EST) Neutrophil % 64.9 % [facility]NI[facility] Neutrophil Absolute 4.25 1.50 - 6.30 x10(3)/mcL [facility]ILLENNI[facility] Lymph % 24.7 % [facility]ILLENNI[facility] Lymphocytes Abs 1.6 1.0 - 3.6 x10(3)/mcL [facility] MILLENNIUM Monocyte % 6.7 % [facility] MILLENNIUM Monocyte Abs 0.4 0.2 - 1.0 x10(3)/mcL [facility] MILLENNIUM Eos % 3.1 % [facility] MILLENNIUM Eosinophils Abs 0.2 0.0 - 0.5 x10(3)/mcL [facility] MILLENNIUM Basophil % 0.3 % [facility] MILLENNIUM Baso Absolute 0.0 0.0 - 0.2 x10(3)/mcL [facility] MILLENNIUM Immature Gran % 0.30 % [facility] Comment: Immature granulocytes(IG's)percentage and absolute count will include metamyelocytes, myelocytes, and promyelocytes. Blood smears from CBCs yielding IG's will be scanned manually for concordance. If this scan disagrees with the automated IG or if promyelocytes are noted, a manual differential will be performed. Immature Gran Absolute 0.02 0.00 - 0.05 x10(3)/mcL [facility]ENNI[facility] Blood specimen (specimen) 11/06/2015 10:24 AM EST 11/06/2015 10:28 AM EST Narrative Resulting Agency Comment Spec In Lab L Karthik Barlow MD HEMATOLOGY ORDERABLE S Performing Organization Address [facility] Co de Phone Number [facility] * (ABNORMAL) Hemogram (11/06/2015 10:24 AM EST) White Blood Cell 6.6 4.0 - 10.0 x10(3)/mc L [facility] MILLENNIUM Red Blood Cell 4.25(L) 4.63 - 6.08 x10(6)/mc L [facility] MILLENNIUM Hemoglobin 13.9 13.7 - 17.5 gm/dL [facility] MILLENNIUM Hematocrit 41.7 40.0 - 51.0 % [facility] MILLENNIUM Mean Cell Volume 98.1(H) 79.0 - 92.0 fL [facility] MILLENNIUM Mean Cell Hemoglobin 32.7(H) 25.6 - 32.2 pg [facility] MILLENNIUM Mean Cell Hemoglobin Concentration 33.3 32.0 - 36.5 gm/dL [facility] MILLENNIUM Platelet 216 145 - 370 x10(3)/mc L [facility] MILLENNIUM RDW Standard Deviation 45.5 35.0 - 46.0 fL C[facility] MILLENNIUM RDW coefficient of variation 12.7 10.9 - 14.4 % [facility] MILLENNIUM Mean Platelet Volume 11.3 9.0 - 12.[address] [facility] Blood specimen (specimen) 11/06/2015 10:24 AM EST 11/06/2015 10:28 AM EST Narrative Resulting Agency Comment Spec In Lab L Karthik Barlow MD HEMATOLOGY ORDERABLE S [facility] * (ABNORMAL) Sedimentation rate (11/06/2015 10:24 AM EST) Sedimentation Rate Automated 22(H) 0 - 15 mm/hr [facility] Blood specimen (specimen) 11/06/2015 10:24 AM EST 11/06/2015 10:28 AM EST Narrative Resulting Agency Comment Spec In Lab L Karthik Barlow MD HEMATOLOGY ORDERABLE S [facility] * (ABNORMAL) Comprehensive metabolic panel (non-fasting) (11/06/2015 10:24 AM EST) Glucose 81 65 - 199 mg/dL [facility] Comment:Diabetes: >=200 mg/d L plus symptoms Blood Urea Nitrogen 14 10 - 20 mg/dL [facility] MILLENNI[facility] Creatinine 1.15 0.80 - 1.50 mg/dL [facility] Comment: Please note that the pediatric reference intervals supplied above were not validated at [facility]. Results from pediatric patients should be interpreted in conjunction to the patient's age, height and muscle mass. Sodium 144 135 - 145 mmol/L [facility]ILLENNI[facility] Potassium 4.4 3.5 - 5.0 mmol/L [facility] Comment: Please note: ??Patients with WBC >100,000 may have falsely elevated Potassium levels. ??For accurate Potassium quantification in these patients send serum separator tube (gold top) for subsequent determinations. ??Contact the Clinical Chemistry Laboratory if there are any questions. Chloride 104 98 - 107 mmol/L [facility]ILLENNI[facility] Carbon Dioxide 26 22 - 31 mmol/L [facility] MILLENNI[facility] Anion Gap 14 5 - 15 mmol/L [facility] MILLENNI[facility] Calcium 9.7 8.5 - 10.5 mg/dL [facility] Protein, Total 8.2(H) 6.1 - 8.0 gm/dL [facility] Albumin 4.6 3.2 - 5.2 gm/dL [facility] Aspartate Aminotransferase 18 0 - 39 unit/L [facility] Alanine Aminotransferase 27 0 - 55 unit/L [facility] Alkaline Phosphatase 63 40 - 120 unit/L [facility] MILLENNIUM Bilirubin, Total 0.4 0.2 - 1.3 mg/dL [facility]NI[facility] Bilirubin, Direct 0.1 0.0 - 0.3 mg/dL [facility]ILLENNI[facility] Est Glomerular Filtration Rate >60 >=60 [facility] Comment: This estimated GFR (eGFR) value was [...] the following links into your internet browser. [email or web address] Blood specimen (specimen) 11/06/2015 10:24 AM EST 11/06/2015 10:28 AM EST Narrative Resulting Agency Comment Spec In Lab L Karthik Barlow MD CHEMISTRY ORDERABLES Performing Organization Address [facility] Phone Number [facility] * High Sensitivity CRP (11/06/2015 10:24 AM EST) Pathologist [facility] C-Reactive Protein High Sensitivity 7.9 mg/L [facility] Comment: Interpretations: 1) For accurate cardiac risk [...] prevention. ??Circulation 2003; [phone]:[id number] Blood specimen (specimen) 11/06/2015 10:24 AM EST 11/06/2015 10:28 AM EST Narrative Resulting Agency Comment Spec In Lab L Karthik Barlow MD CHEMISTRY ORDERABLES Performing Organization Address [facility] Phone Number [facility] documented in this encounter Visit Diagnoses Diagnosis Ulcerative colitis, without complications Diarrhea Pain in right hip Pain in joint, pelvic region and thigh Bilateral low back pain, with sciatica presence unspecified Abdominal pain, unspecified abdominal location Chronic ulcerative enterocolitis, unspecified complication documented in this encounter Care Teams Camp Dining Room Attendant Relationship Specialty Start Date End Date Maximilian Fall MD [address] [place] [address] PCP - General 10/01/11 02/13/21 documented as of this encounter
--- OUTSIDE RECORDS SUMMARY | 2024-06-29 16:06 | XMS_ITS | Encounter Summary ---
Author Organization [facility] [address] Care Team Providers Care Well Cleaner Name Role Phone Maximilian Fall MD Primary Care Provider [phone] Encounter Details Date Type Department Care Team (Late st Contact Info) Description 09/30/2012 Telephone [place] [address] Lilliana Reece RN Social History Tobacco Use Types Packs/Day [...] encounter Miscellaneous Notes * Telephone Encounter - Lilliana Up RN - 09/30/2012 4:16 PM EST Message Lilliana Verduzco, Could you let him know that TSH is borderline up and he needs T3, T4 And f/u with his PCP. Please help arrange this. louis Spoke with patient. Will speak with PCP Letter sent to patient. documented in this encounter Plan of Treatment Upcoming Encounters Date Type Department Care Team (Late st Contact Info) Description 08/15/2024 9:00 AM EDT Office [place] [address] Dion Barlow MD [facility] [place] [address] 09/01/2024 11:20 AM EDT Office Visit Dermatology at [facility] [address] [place] [address] Gómez Mercer MD [facility] DR EDDIE SANCHEZ-DERMATOLOGY [place], [place] [id number] 09/21/2024 2:45 PM EDT Office Visit [facility] and Sp[facility] Center at [place] [phone] Trung Hoyos MD [facility] [place] [address] documented as of this encounter Visit Diagnoses Not on filedocumented in this encounter Care Teams Well Cleaner Relationship Specialty Start Date End Date Maximilian Fall MD [address] [place] [address] PCP - General 10/01/11 02/13/21 documented as of this encounter
--- OUTSIDE RECORDS SUMMARY | 2024-06-29 16:06 | XMS_ITS | Encounter Summary ---
Author Organization [facility] [address] Care Team Providers Care Ring Packer Name Role Phone Maximilian Fall MD Primary Care Provider [phone] Encounter Details Date Type Department Care Team (Late st Contact Info) Description 07/13/2014 2:30 PM EDT - 07/13/2014 3:30 PM EDT Surgery [place] [address] Dion Osullivan MD [facility] [place] [address] COLONOSCOPY, DIAGNOSTIC (WRVU 3.26) Social History Tobacco Use Types Packs/Day Years [...] Sign Reading Time Taken Comments Blood Pressure 138/75 07/13/2014 4:13 PM EDT Pulse 80 07/13/2014 4:13 PM EDT Temperature - - Respiratory Rate 18 07/13/2014 4:13 PM EDT Oxygen Saturation 92% 07/13/2014 4:13 PM EDT Inhaled Oxygen Concentration - - Weight - - Height - - Body Mass Index - - documented in this encounter Discharge Instructions * Discharge Instructions* Kira Quan RN - 07/13/2014 4:14 PM EDT Please call [phone], before 5pm with problems, questions or concerns, after 5pm call the Hospital at [phone] and ask to speak to the Central Melt Specialist automation controls engineer and the shook machine operator will contactthat person for you. Discharge instructions reviewed with [...] cannot be sent through Care Everywhere. * COLONOSCOPY : POSTOP (TAMAZIGHT) documented in this encounter Medications at Time of Discharge Medication Sig Dispensed Refills Start Date End Date glipiZIDE (GLUCOTROL) 10 mg 24 hr tablet Take 10 mg by mouth daily. folic acid (FOLVITE) 1 mg tabletIndications:Ulcera tive colitis Take 1 tablet by mouth daily. 90 tablet 3 11/22/2012 omeprazole (PRILOSEC) 20 mg capsule Take 40 mg by mouth daily. sulfaSALAzine (AZULFIDINE) 500 mg tablet Take 2,000 mg by mouth 2 times daily. 05/16/2016 lisinopril (PRINIVIL;ZESTRIL) 10 mg tablet Take 5 mg by mouth daily. 09/17/2015 propranolol (INDERAL) 80 mg tablet Take 80 mg by mouth daily. 05/11/2017 fluticasone (FLOVENT) 110 mcg/Actuation inhaler Inhale 2 puffs into the lungs 2 times daily. 05/03/2018 metFORMIN (GLUCOPHAGE) 500 mg tablet 500mg, PO, Twice daily 01/15/2007 05/11/2017 documented as of this encounter H&P Notes * Dion Osullivan MD - 07/13/2014 2:05 PM EDT Gastroenterology and Hepatology Pre-Procedure History and Physical Exam Procedure: Colonoscopy: Indication: UC Patient Active Problem List Diagnosis Code ??? Ulcerative colitis 556.9 ??? Diabetes mellitus 250.00 ??? Hearing loss 389.9 ??? GERD (gastroesophageal reflux disease) 530.81 ??? Hydrocele 603.9 ??? Asthma 493.90 EXAM: HEENT: Airway examined, oropharynx clear LUNGS: Clear to auscultation HEART: Regular rate and rhythm, normal S1, S2 ABDOMEN: Normal bowel sounds, soft, non tender, non distended, A/P Proceed with the planned endoscopic procedure. Risks and benefits of the procedure explained to the patient. Consent signed. documented in this encounter Miscellaneous Notes * Miscellaneous - Provider, Scanning - 07/13/2014 9:50 PM EDT * Op Note - Dion Osullivan MD - 07/13/2014 3:57 PM EDT [facility] Operative Note Patient Name: Naya Rodriguez : [id number] MR#: [id number] Case Date: 07/13/2014 Surgeon: Surgeon(s) and Role: * Dion Osullivan MD - Primary Preoperative diagnosis: UC, restage disease. (local)(sedate well) Postoperative diagnosis: * No post-op diagnosis entered * Procedure(s): COLONOSCOPY, DIAGNOSTIC Please see the Provation procedure report in the Procedures tab in eDH. * Miscellaneous - Provider, Scanning - 07/13/2014 2:52 PM EDT documented in this encounter Plan of Treatment Upcoming Encounters Date Type Department Care Team (Late st Contact Info) Description 08/15/2024 9:00 AM EDT Office [place] [phone] Dion Osullivan MD [facility] [place] [address] 09/01/2024 11:20 AM EDT Office Visit Dermatology at [facility] [address] [place] [address] Gómez Mercer MD [facility] [address] [place] [address] 09/21/2024 2:45 PM EDT Office Visit [facility] [place] [address] Trung Hoyos MD [facility] [place] [address] documented as of this encounter Procedures Procedure Name Priority Date/Time Associated Diagnosis Comments SURGICAL PATHOLOGY REPORT Routine 07/13/2014 3:58 PM EDT SPECIMEN TO PATHOLOGY Routine 07/13/2014 3:58 PM EDT SPECIMEN TO PATHOLOGY Routine 07/13/2014 3:58 PM EDT SPECIMEN TO PATHOLOGY Routine 07/13/2014 3:58 PM EDT COLONOSCOPY, DIAGNOSTIC (WRVU 3.26) 07/13/2014 2:55 PM EDT Other ulcerative colitis COLONOSCOPY Routine 07/13/2014 2:51 PM EDT POCT GLUCOSE Routine 07/13/2014 1:59 PM EDT documented in this encounter Results * Surgical Pathology Report (07/13/2014 3:58 PM EDT) Final Diagnosis ? [facility] ? Provider: ?? Dion OSULLIVAN ?Pt. Name: ?? NAYA RODRIGUEZ ? Acc #: ?[id number] ?Pt. ? Col Date: ?? 07/13/2014 ? /Sex: ?1950,(64 years),Male ? Rec Date: ?? 07/13/2014 ? LOC: ?4T ? SURGICAL PATHOLOGY ? ---Pathologic Diagnosis--- ? A - Left colon: ? Hyperplastic polyp(s) (multiple fragments). ? B - Ascending colon polyps: ? Colonic mucosa within normal limits. ? C - Right colon: ? Colonic mucosa within normal limits. ? CR-0 ; CR-PX ? 07/14/14 ? JRP ? 07/14/14 Verified by: ? Lorenza HARVEY, Fam Wells ? Pathologist ? (Electronic Signature) ? The attending pathologist whose signature appears on this report has ? reviewed all diagnostic slides and has edited the gross and/or ? microscopic portion of the report in rendering the final pathologic ? diagnosis. ? ---Gross Description--- ? A - Labeled/Fixative : Two polyps-ascending colon, formalin. ? Quantity/Size: Four, ranging from 0.2-0.4 cm. ? Tissue Description: Soft, pink tissues. ? Sections/Process ing: (T1) ? B - Labeled/Fixative : Mucosal biopsies-left colon, formalin. ? Quantity/Size: Five, ranging from 0.3-0.6 cm. ? Tissue Description: Soft, red tissues. ? Sections/Process ing: (T1) ? C - Labeled/Fixative : Mucosal biopsies-right colon, formalin. ? Quantity/Size: Four, averaging 0.4 cm. ? Tissue Description: Soft, stephen tissues. ? Sections/Process ing: (T1) ??sns ? ---Clinical Information--- ? Specimen Submitted: ? A - Mucosal biopsies - L colon ? B - Two polyps - ascending colon ? C - Mucosal biopsies - R colon ? [facility] ? Provider: ?? Dion OSULLIVAN ?Pt. Name: ?? NAYA RODRIGUEZ ? Acc #: ?[id number] ?Pt. ? Col Date: ?? 07/13/2014 ? /Sex: ?1950,(64 years),Male ? Rec Date: ?? 07/13/2014 ? LOC: ?4T ? SURGICAL PATHOLOGY ? Clinical History: ? 64-year-old with a history of left sided UC ? Clinical Diagnosis: ? Same 07/14/2014 4:08 PM EDT [facility] GI Biopsy 07/13/2014 3:58 PM EDT 07/13/2014 3:58 PM EDT GI Biopsy 07/13/2014 3:58 PM EDT 07/13/2014 3:58 PM EDT GI Biopsy 07/13/2014 3:58 PM EDT 07/13/2014 3:58 PM EDT Dion Osullivan MD PATHOLOGY/CYTOLOGY O RDERABLES Performing Organization Address City/State/[facility] Phone Number [facility] [place] [address] * Specimen to Pathology (surgical or derm) (07/13/2014 3:58 PM EDT) AP Specimen 07/13/2014 3:58 PM EDT 07/13/2014 3:58 PM EDT Narrative DURGA COLBERTIUM - 07/13/2014 3:58 PM EDT Specimen requisition ordered. ??Separate Pathology report to follow L Karthik Osullivan MD PATHOLOGY/CYTOLOGY O CEE Performing Organization Address [facility] Co de Phone Number DURGA FREDERICK * Specimen to Pathology (surgical or derm) (07/13/2014 3:58 PM EDT) AP Specimen 07/13/2014 3:58 PM EDT 07/13/2014 3:58 PM EDT Narrative DURGA COLBERTIUM - 07/13/2014 3:58 PM EDT Specimen requisition ordered. ??Separate Pathology report to follow L Karthik Osullivan MD PATHOLOGY/CYTOLOGY O CEE Performing Organization Address [facility] Co de Phone Number DURGA FREDERICK * Specimen to Pathology (surgical or derm) (07/13/2014 3:58 PM EDT) AP Specimen 07/13/2014 3:58 PM EDT 07/13/2014 3:58 PM EDT Narrative DURGA COLBERTIUM - 07/13/2014 3:58 PM EDT Specimen requisition ordered. ??Separate Pathology report to follow L Karthik Osullivan MD PATHOLOGY/CYTOLOGY Ozzie MIKE Performing Organization Address [facility] Co de Phone Number DURGA FREDERICK * COLONOSCOPY (07/13/2014 2:51 PM EDT) COLONOSCOPY [facility] Endoscopy Patient Name: Naya Rodriguez ? Procedure Date: 07/13/2014 2:51 PM ? Date of : 1950 ? Age: 64 ? Order #: [id number] ? Procedure: ? Colonoscopy Indications: ? Follow-up of left-sided chronic ? ulcerative colitis Providers: ? L. Karthik Osullivan MD, Emily Quinn, ? RN, Luna Connors RN, Cam Ashley. ? Doug, Concession Manager Referring : ?Maximilian Fall MD Medicines: ? Midazolam 7 mg IV, Fentanyl 300 ? micrograms IV Complications: ? No immediate [...] quality of the ? bowel preparation was good. ? Findings: ? There was very mild somewhat patchy erythema in the ? left colon. Otherwise, there were no signs of active ? ulcerative colitis, which is an improvement from last ? exam. Biopsies were taken from the L colon and from ? the R colon. ? Multiple small and large-mouthed diverticula were ? found in the sigmoid colon. ? Two sessile polyps were found in the ascending colon. ? The polyps were 3 to 6 mm in size. The larger polyp ? was removed with a hot snare and the smaller with a ? cold snare. Resection and retrieval were complete. ? The terminal ileum appeared normal. ? Impression: ?- Very mild ulcerative colitis with ? only patchy erythema. ? - Moderate diverticulosis in the ? sigmoid colon. ? - Two 3 to 6 mm polyps in the ? ascending colon. Resected and ? retrieved. ? - The examined portion of the ileum ? was normal. Recommendation: ?Continue current medications. ? Await pathology. ? __ L. Karthik Osullivan MD 07/13/2014 4:02 PM Number of Addenda: 0 Note Initiated On: 07/13/2014 2:51 PM PROVATION 07/13/2014 2:51 PM EDT Maximilian Fall MD GENERAL SURGICAL ORD [facility] Performing Organization Address City/[facility] Co de Phone Number PROVATION * POCT Glucose (07/13/2014 1:59 PM EDT) Glucose, POC 167 60 - 199 mg/dL CERNER MILLENNIUM Comment: Supplemental ranges: <140 mg/dL before meals <180 mg/dL all other times of the day Blood specimen (specimen) 07/13/2014 1:59 PM EDT 07/13/2014 1:59 PM EDT Dion Osullivan MD POINT OF CARE TEST O RDMELISSA Performing Organization Address City/[facility] Co de Phone Number CERNER MILLENNIUM documented in this encounter Visit Diagnoses Diagnosis Other ulcerative colitis documented in this encounter Administered Medications Inactive Administered Medications - up to 3 most recent administrations Medication Order MAR Action Action Date Dose Rate Site fentaNYL 50mcg/mL injection ONCE PRN, Starting on Tresa 07/13/14 at 1459, Until Tresa 07/13/14 at 1636, Pain, Intra-Operative (Intra-Procedure), Routine Given 07/13/2014 3:40 PM EDT 50 mcg Right Arm Given 07/13/2014 3:30 PM EDT 50 mcg Ri ght Arm Given 07/13/2014 3:20 PM EDT 50 mcg Ri ght Arm lactated ringers infusion 100 mL/hr, Intravenous, CONTINUOUS, Starting on Tresa 07/13/14 at 1415, Until Tresa 07/13/14 at 1636, Endoscopy (Day of Procedure) New Bag 07/13/2014 1:56 PM EDT 100 mL/hr 100 mL/hr midazolam (PF) (VERSED) 1 mg/mL injection ONCE PRN, Starting on Tresa 07/13/14 at 1459, Until Tresa 07/13/14 at 1636, Sleep, Intra-Operative (Intra-Procedure), Routine Given 07/13/2014 3:40 PM EDT 1 mg Right Arm Given 07/13/2014 3:32 PM EDT 1 mg Ri ght Arm Given 07/13/2014 3:28 PM EDT 1 mg Ri ght Arm documented in this encounter Active and Recently Administered Medications Times are shown in EDT. Continuous Medication Order 07/11/2014 07/12/2014 07/13/2014 lactated ringers infusion (CANCELED) 100 mL/hr, Intravenous, CONTINUOUS, Starting on Tresa 07/13/14 at 1415, Until Tresa 07/13/14 at 1636, Endoscopy (Day of Procedure) 1356 (New Bag - Prov ider: Megan Jimenez RN) PRN Medication Order 07/11/2014 07/12/2014 07/13/2014 fentaNYL 50mcg/mL injection (CANCELED) ONCE PRN, Starting on Tresa 07/13/14 at 1459, Until Tresa 07/13/14 at 1636, Pain, Intra-Operative (Intra-Procedure), Routine 1459 (Given - Provid er: Emily Quinn RN)1504 (Given - Provider: Emily Quinn RN)1510 (Given - Provider: Luna Connors RN - Comment: continuing sedation)1520 (Given - Provider: Luna Connors RN)1530 (Given - Provider: Luna Connors RN - Comment: pt uncomfortable)1540 (Given - Provider: Luna Connors RN - Comment: pt uncomfortable) midazolam (PF) (VERSED) 1 mg/mL injection (CANCELED) ONCE PRN, Starting on Tresa 07/13/14 at 1459, Until Tresa 07/13/14 at 1636, Sleep, Intra-Operative (Intra-Procedure), Routine 1459 (Given - Provid er: Emily Quinn RN)1502 (Given - Provider: Emily Quinn RN)1520 (Given - Provider: Luna Connors RN - Comment: continuing sedation)1524 (Given - Provider: Luna Connors RN - Comment: continuing sedation)1528 (Given - Provider: Luna Connors RN - Comment: pt uncomfortable)1532 (Given - Provider: Luna Connors RN - Comment: pt uncomfortable)1540 (Given - Provider: Luna Connors RN - Comment: pt uncomfortable) documented in this encounter Care Teams Ring Packer Relationship Specialty Start Date End Date Maximilian Fall MD [address] [place] [address] PCP - General 10/01/11 02/13/21 documented as of this encounter
--- OUTSIDE RECORDS SUMMARY | 2024-06-29 16:06 | XMS_ITS | Encounter Summary ---
Author Organization [facility] Address [facility] [place] [address] Care Team Providers Care Oncology Account Specialist Name Role Phone Maximilian Fall MD Primary Care Provider [phone] Encounter Details Date Type Department Care Team (Latest Contact Info) Description 11/06/2015 11:18 AM EST - 11/06/2015 11:59 PM [facility] Hospital Encounter XRay at [address] [place] [address] Dion Barlow MD [facility] [place] [address] Pain in right hip; Bilateral low back pain, with sciatica presence unspecified; Abdominal pain, unspecified abdominal location; Chronic ulcerative enterocolitis, unspecified complication Discharge Disposition: Home Social History Tobacco Use [...] Solution Inject 50 Units subcutaneously nightly. 05/03/2018 mesalamine (ROWASA) 4 gram/60 mL EnemaIndications:Left sided colitis, unspecified complication Place 60 mLs rectally nightly. 20 Bottle 6 09/17/2015 12/04/2015 sulfaSALAzine (AZULFIDINE) 500 mg tablet Take 2,000 [...] 9:00 AM EDT [place] [address] Dion Barlow MD [facility] [place] [address] 09/01/2024 11:20 AM EDT Office Visit [facility] [address] [place] [phone] Gómez Mercer MD [facility] DR [place] [address] 09/21/2024 2:45 PM EDT Office Visit [place] [address] Trung Hoyos MD [facility] [place] [address] documented as of this encounter Procedures Procedure Name Priority Date/Time Associated Diagnosis Comments XR LUMBAR SPINE MIN 4 VIEW Routine 11/06/2015 11:43 AM EST Pain in right hip Bilateral low back pain, with sciatica presence unspecified Abdominal pain, unspecified abdominal location Chronic ulcerative enterocolitis, unspecified complication documented in this encounter Results * XR Lumbar Spine Minimum 4 View (11/06/2015 11:43 AM EST) Anatomical Region Laterality Modality L-spine N/A Digital Radiogra phy Impressions 11/06/2015 12:08 PM EST IMPRESSION: Degenerative changes of the upper lumbar spine with intervertebral disc space narrowing at T12-L1 L1-L2. No evidence for anterior retrolisthesis. No change on flexion-extension. There is mild straightening of the normal lumbar lordosis. Narrative 11/06/2015 12:08 PM EST EXAMINATION: XR LUMBAR SPINE COMPLETE INCLUDING BENDING VIEW CLINICAL HISTORY: low back pain, on right lower back and right hip pain. trouble lifting right leg., ? sacroilietis TECHNIQUE: AP lateral and flexion-extension views. COMPARISON: None FINDINGS: There are 5 nonrib-bearing lumbar-type vertebral bodies. Sacroiliac joints are intact. There is a mild upper lumbar rotatory curve to small to be measured. Surgical clips noted adjacent to the right L1 pedicle. There is mild straightening of the normal lumbar lordosis. Anterior posterior spinal alignment is maintained. Intervertebral disc space changes are noted at T12-L1 and L1-L2. There is mild superior endplate compression of L2 with anterior osteophytes present. No change in positioning on flexion-extension views. No evidence for anterior retrolisthesis. L Karthik Barlow MD IMG DX ORDERABLES documented in this encounter Visit Diagnoses Diagnosis Pain in right hip Pain in joint, pelvic region and thigh Bilateral low back pain, with sciatica presence unspecified Abdominal pain, unspecified abdominal location Chronic ulcerative enterocolitis, unspecified complication documented in this encounter Care Teams Oncology Account Specialist Relationship Specialty Start Date End Date Maximilian Fall MD [address] [place] [address] PCP - General 10/01/11 02/13/21 documented as of this encounter
--- OUTSIDE RECORDS SUMMARY | 2024-06-29 16:06 | XMS_ITS | Encounter Summary ---
Author Organization [facility] [place] [address] Care Team Providers Care Structural Mill Supervisor Name Role Phone Maximilian Fall MD Primary Care Provider Encounter Details Date Type Department Care Team (Latest Contact Info) Description 10/01/2012 2:23 PM EST - 10/01/2012 6:31 PM EST Hospital Encounter [place] [address] Dion Osullivan MD [facility] [place] [address] Discharge Disposition: Home Social History Tobacco Use [...] Sign Reading Time Taken Comments Blood Pressure 114/81 10/01/2012 5:16 PM EST Pulse 89 10/01/2012 5:02 PM EST Temperature 36.4 ??C (97.5 ??F) 10/01/2012 4:14 PM ES T Respiratory Rate 16 10/01/2012 5:16 PM EST Oxygen Saturation 94% 10/01/2012 5:16 PM EST Inhaled Oxygen Concentration - - Weight - - Height - - Body Mass Index - - documented in this encounter Discharge Instructions * Discharge Instructions* Khai Colvin RN - 10/01/2012 5:17 PM EST You may have received medication before and/or during your procedure, which affects judgement and reaction time. Do not drive, operate machinery, drink alcoholic beverages, or make important decisions for 24 hours. Be careful on stairs, as you may be unsteady on your feet. You may eat a regular diet as tolerated. Do not smoke if you are alone. IV site -- slight redness, or tenderness is normal, you can use a warm compress. If tenderness and redness increases or foul drainage occurs, please contact your M. D. * Attachments The following attachments cannot be sent through Care Everywhere. * UPPER GI ENDOSCOPY: WHAT TO EXPECT AT HOME (UPPER SORBIAN) documented in this encounter Medications at Time of Discharge Medication Sig Dispensed Refills Start Date End Date omeprazole (PRILOSEC) 20 mg capsule Take 40 mg by mouth daily. lisinopril (PRINIVIL;ZESTRIL) 10 mg tablet Take 5 mg by mouth daily. 09/17/2015 propranolol (INDERAL) 80 mg tablet Take 80 mg by mouth daily. 05/11/2017 sulfADIAZINE 500 mg tablet Take 500 mg by mouth 6 times daily. 11/01/2013 mesalamine (ROWASA) 4 gram/[address] 60 mLs rectally daily. 20 Bottle 6 04/02/2012 11/01/2013 predniSONE (DELTASONE) 10 mg tabletIndications:Ulce rative colitis Take 2 tablets by mouth daily. 120 tablet 0 03/16/2012 11/01/2013 acetaminophen (TYLENOL) 500 mg tablet Take 500 mg by mouth every 6 hours as needed. 03/06/2014 MULTI-VITAMIN ORAL Take by mouth daily. 0 06/05/2014 ascorbic acid (VITAMIN C) 500 mg tablet Take 500 mg by mouth daily. 03/06/2014 glyBURIDE (DIABETA) 5 mg tablet Take 5 mg by mouth daily. 03/06/2014 fluticasone (FLOVENT) 110 mcg/Actuation inhaler Inhale 2 puffs into the lungs 2 times daily. 05/03/2018 folic acid (FOLVITE) 1 mg tabletIndications:Ulce rative colitis Take 1 tablet by mouth daily. 120 tablet 6 10/01/2011 11/22/2012 metFORMIN (GLUCOPHAGE) 500 mg tablet 500mg, PO, Twice daily 01/15/2007 05/11/2017 bacitracin 500 unit/g ointment 01/15/2007 03/06/2014 documented as of this encounter H&P Notes * Dion Osullivan MD - 10/01/2012 3:40 PM EST Gastroenterology and Hepatology Pre-Procedure History and Physical Exam Procedure: EGD: Indication: dyspepsia 62 yo with several months of epigastric pain despite PPI. Patient Active Problem List Diagnoses Code ??? Ulcerative colitis 556.9J ??? Diabetes mellitus 250.00A ??? Hearing loss 389.9AB ??? GERD (gastroesophageal reflux disease) 530.81S ??? Hydrocele 603.9F ??? Asthma 493.90AE EXAM: HEENT: Airway examined, oropharynx clear LUNGS: Clear to auscultation HEART: Regular rate and rhythm, normal S1, S2 ABDOMEN: Normal bowel sounds, soft, non tender, non distended, A/P Proceed with the planned endoscopic procedure. Risks and benefits of the procedure explained to the patient. Consent signed. documented in this encounter Miscellaneous Notes * Miscellaneous - Provider, Scanning - 10/01/2012 9:23 PM EST * Op Note - Dion Osullivan MD - 10/01/2012 5:07 PM EST [facility] Operative Note Patient Name: Naya Rodriguez : [id number] MR#: [id number] Case Date: 10/01/2012 Surgeon: Surgeon(s) and Role: * Dion OSULLIVAN MD - Primary Preoperative diagnosis: 62 yo with 2 months of dyspepsia despite PPI Postoperative diagnosis: * No post-op diagnosis entered * Procedure(s): UPPER GI ENDOSCOPY Please see the Provation procedure report in the Procedures tab in eDH. * Miscellaneous - Provider, Scanning - 10/01/2012 4:38 PM EST documented in this encounter Plan of Treatment Upcoming Encounters Date Type Department Care Team (Late st Contact Info) Description 08/15/2024 9:00 AM EDT Office [place] [address] Dion Osullivan MD [facility] [place] [address] 09/01/2024 11:20 AM EDT Office Visit Dermatology at [facility] [address] [place] [phone] Gómez Mercer MD [facility] DR [facility] [address] 09/21/2024 2:45 PM EDT Office Visit [facility] [place] [phone] Trung Hoyos MD [facility] [place] [address] documented as of this encounter Procedures Procedure Name Priority Date/Time Associated Diagnosis Comments SURGICAL PATHOLOGY REPORT Routine 10/01/2012 5:54 PM EST SPECIMEN TO PATHOLOGY Routine 10/01/2012 5:09 PM EST UPPER GI ENDOSCOPY 10/01/2012 4: 50 PM EST Dyspepsia UPPER GI ENDOSCOPY Routine 10/01/2012 4: 41 PM EST POCT GLUCOSE Routine 10/01/2012 4:27 PM EST documented in this encounter Results * SURGICAL PATHOLOGY REPORT (10/01/2012 5:54 PM EST) Surgical Pathology Report ? [facility] ? Provider: ?? Dion OSULLIVAN ?Pt. Name: ?? NAYA RODRIGUEZ ? Acc #: ?[id number] ?Pt. ? Col Date: ?? 10/01/2012 ? /Sex: ?1950,(62 years),Male ? Rec Date: ?? 10/01/2012 ? LOC: ?4T ? SURGICAL PATHOLOGY ? ---Pathologic Diagnosis--- ? Endoscopic biopsy - Gastric fundic gland polyp. ? Cr-0 ? 10/05/12 ? AAS ? 10/05/12 Verified by: ? Joana Soler MD ? Pathologist ? (Electronic Signature) ? The attending pathologist whose signature appears on this report has ? reviewed all diagnostic slides and has edited the gross and/or ? microscopic portion of the report in rendering the final pathologic ? diagnosis. ? ---Microscopic Description--- ? Slides reviewed, microscopic description not recorded. ? ---Gross Description--- ? Labeled/Fixativ e: ? Polyp stomach, formalin. ? Qty/Size/Weight : ?Single, 0.3 cm in diameter. ? Tissue Description: ?? Soft, stephen-pink tissue. ? Sections/Proces sing: ??Inked. ??Bisected. ??(T1) ??aje/PPS ? ---Clinical Information--- ? Specimen Submitted: ? A - Polyp-stomach ? Clinical History/Diagnos is: ? 62 yo with dyspepsia DURGA FREDERICK 10/01/2012 5:54 PM EST L Karthik Osullivan MD PATHOLOGY/CYTOLOGY O CEE Performing Organization Address [facility] Co de Phone Number DURGA FREDERICK * Specimen to Pathology (surgical or derm) (10/01/2012 5:09 PM EST) AP Specimen 10/01/2012 5:09 PM EST 10/01/2012 5:09 PM EST Narrative CERNER MILLENNIUM - 10/01/2012 5:09 PM EST Specimen requisition ordered. ??Separate Pathology report to follow L Karthik Osullivan MD PATHOLOGY/CYTOLOGY O CEE Performing Organization Address City/[facility] Co de Phone Number DURGA FREDERICK * UPPER GI ENDOSCOPY (10/01/2012 4:41 PM EST) UPPER GI ENDOSCOPY [facility] Endoscopy Patient Name: Naya Rodriguez ? Procedure Date: 10/01/2012 4:41 PM ? N: [id number] ? Date of : 1950 ? Age: 62 ? Order #: [id number] ? Procedure: ? Upper GI endoscopy Indications: ? Epigastric abdominal pain Providers: ? L Karthik Osullivan MD, Alannah Singletary, ? RN, Mona Osborne, Mortar Man Referring MD: ?Maximilian Fall MD Medicines: ? Midazolam 3 [...] cancer, and ? adverse medication reactions. The New ? Lease 2012 was introduced through the ? mouth, and advanced to the third part ? of duodenum. The patient tolerated ? the procedure well. The upper GI ? endoscopy was accomplished without ? difficulty. ? Findings: ? The examined esophagus was normal. Z-line seen at 40 ? cm.A single 3 mm sessile polyp was found in the ? gastric body. The polyp was removed with a jumbo cold ? forceps. Resection and retrieval were complete. The ? examined duodenum was normal. ? Impression: ?- Etiology for abdominal pain not ? seen on this exam. ? - Normal esophagus. ? - A single gastric polyp. Resected ? and retrieved. ? - Normal examined duodenum. Recommendation: ?- Await pathology results. ? - If pain persists, then consider ? cross-sectional imaging. ? _ L Karthik Osullivan MD 10/01/2012 5:10 PM Number of Addenda: 0 Note Initiated On: 10/01/2012 4:41 PM PROVATION 10/01/2012 4:41 PM EST Maximilian Fall MD GENERAL SURGICAL ORD ERABLES Performing Organization Address [facility] de Phone Number PROVATION * POCT GLUCOSE (10/01/2012 4:27 PM EST) Glucose, POC 84 60 - 199 mg/dL [facility] Comment: Supplemental ranges: <110 mg/dL before meals <200 mg/dL all other times of the day Blood specimen (specimen) 10/01/2012 4:27 PM EST 10/01/2012 4:27 PM EST L Karthik Osullivan MD POINT OF CARE TEST O RDERABLES Performing Organization Address [facility] de Phone Number [facility] documented in this encounter Visit Diagnoses Not on filedocumented in this encounter Active and Recently Administered Medications Times are shown in EST. PRN Medication Order 09/29/2012 09/30/2012 10/01/2012 fentaNYL 50mcg/mL injection (CANCELED) ONCE PRN, Starting on Thu10/01/12 at 1654, Until Thu10/01/12 at 2032, Pain, Intra-Operative (Intra-Procedure), Routine 1653 (Given - Provid er: Alannah Singletary RN)1656 (Given - Provider: Alannah Singletary RN)1658 (Given - Provider: Alannah Singletary RN) midazolam (VERSED) injection (CANCELED) ONCE PRN, Starting on Thu10/01/12 at 1654, Until Thu10/01/12 at 2031, Sleep, Intra-Operative (Intra-Procedure), Routine 1653 (Given - Provid er: Alannah Singletary RN)1656 (Given - Provider: Alannah Singletary RN) documented in this encounter Care Teams Structural Mill Supervisor Relationship Specialty Start Date End Date Maximilian Fall MD [address] [place] [address] PCP - General 10/01/11 02/13/21 documented as of this encounter
--- OUTSIDE RECORDS SUMMARY | 2024-06-29 16:06 | XMS_ITS | Encounter Summary ---
Author Organization [facility] [place] [address] Care Team Providers Care Database Support Name Role Phone Maximilian Fall MD Primary Care Provider Reason for Visit * Reason Comments Follow-up Encounter Details Date Type Department Care Team (Late st Contact Info) Description 06/05/2014 9:30 AM EDT Follow-[place] [address] Marcelle Weinberg APRN [facility] [place] [address] Other ulcerative colitis (Primary Dx) Discharge Disposition: Home Social History Tobacco Use [...] Sign Reading Time Taken Comments Blood Pressure 138/79 06/05/2014 9:24 AM EDT Pulse 62 06/05/2014 9:24 AM EDT Temperature - - Respiratory Rate - - Oxygen Saturation - - Inhaled Oxygen Concentration - - Weight 111.4 kg (245 lb 9.6 oz) 06/05/2014 9:24 AM EDT Height 193 cm (6' 4) 06/05/2014 9:24 AM EDT Body Mass Index 29.9 06/05/2014 9:24 AM EDT documented in this encounter Progress Notes * Marcelle Weinberg, SHEET METAL SUPERVISOR - 06/05/2014 9:29 AM EDT ??? Ulcerative colitis Colonoscopy 04/08/10 (Dr. Gomes [facility]) - inflammation only within the rectum and sigmoid; extent of the exam was to the hepatic flexure; biopsies proximal to the sigmoid nl Repeat exam 11/27/11 ([facility] [place]): mildly active colitis in the sigmoid colon and a small cecal patch. Suspected lack of distal involvement due to topical therapies; sigmoid diverticulosis; nl ileum. Biopsies with active colitis on the L but not R colon. 4 mm TA in the transverse Flex sig (03/16/12) for screening for MERIT. Mild (enrique 1) colitis to 25 cm - rectum spared TREATMENT: cortenemas, Asacol, Rowasa, prednisone, and imodium ??? Diabetes mellitus ??? Hearing loss ??? GERD (gastroesophageal reflux disease) ??? Hydrocele ??? 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 Last seen Dr. Barlow 02/2014. He is on sulfasalazine 5 pills BID, cut down from 6 pills BID by PCP as he was having severe fatigued when he was on higher dose. In addition, his PCP also advised him not to take Remicade infusion for now and get a colonoscopy per patient. Overall, he feels about the same. His diarrhea has not changed, having bm 5x/day, the first bm is usually soft then the succeeding bm were looser and has urgency. No bleeding. + nocturnal BM x1. He continues to experience lower abdominal cramy pain. He has stopped the Rowasa enema since last visit but tried it again last night which has helped. There has been no apthous stomatitis, episcleritis, uveitis, inflammatory arthritis, pyoderma gangrenosum, erythema nodosum, or perianal lesions. Review of Systems Constitutional: Negative for fever, chills and appetite change. HENT: Negative for mouth sores. Eyes: Negative for pain. Gastrointestinal: See Interval History. Musculoskeletal: Positive for arthralgias. Skin: Negative for rash. Filed Vitals: 06/05/14 0924 BP: 138/79 Pulse: 62 Height: 193 cm (6' 4) Weight: 111.403 kg (245 lb 9.6 oz) Physical Exam Constitutional: He appears well-developed and well-nourished. No distress. Abdominal: Soft. Bowel sounds are normal. He exhibits no distension and no mass. There is tenderness (diffuse tenderness on LLQ>RLQ on palpation.). There is no guarding. Neurological: He is alert. Skin: Skin is warm and dry. Psychiatric: He has a normal mood and affect. Assessment and Plan: Mr. Rodriguez has left-sided ulcerative colitis with persistently active moderate symptoms. Recommend: - try to go back on SSZ 6 pills BID again as tolerated and continue folic acid - Rowasa enema q hs x 1week then PRN - will get colonoscopy - pending above findings, consider Remicade RTC with Dr. Barlow as scheduled in August or sooner with me as needed documented in this encounter Plan of Treatment Upcoming Encounters Date Type Department Care Team (Late st Contact Info) Description 08/15/2024 9:00 AM EDT Office [place] [phone] Dion Barlow MD [facility] [place] [address] 09/01/2024 11:20 AM EDT Office Visit Dermatology at [facility] [address] [place] [phone] Gómez Mercer MD [facility] DR [place] [address] 09/21/2024 2:45 PM EDT Office Visit [facility] [place] [phone] Trung Hoyos MD [facility] [place] [address] Scheduled Orders Name Type Priority Associated Diagnoses Orde r Schedule COLONOSCOPY Procedures Routine Other ulcerative colitis Ordered: 06/05/2014 documented as of this encounter Visit Diagnoses Diagnosis Other ulcerative colitis- Primary documented in this encounter Care Teams Database Support Relationship Specialty Start Date End Date Maximilian Fall MD [address] [place] [address] PCP - General 10/01/11 02/13/21 documented as of this encounter
--- OUTSIDE RECORDS SUMMARY | 2024-06-29 16:06 | XMS_ITS | Encounter Summary ---
Author Organization [facility] [place] [address] Care Team Providers Care Smutter Name Role Phone Maximilian Fall MD Primary Care Provider [phone] Reason for Visit * Reason Onset Date Comments Medication Refill 04/05/2014 Encounter Details Date Type Department Care Team (Late st Contact Info) Description 04/05/2014 [place] [phone] Dion Barlow MD [facility] [place] [address] Social History Tobacco Use Types Packs/Day Years [...] 9:00 AM EDT Office [place] [phone] Dion Barlow MD [facility] [place] [address] 09/01/2024 11:20 AM EDT Office Visit Dermatology at [facility] [address] [place] [address] Gómez Mercer MD [facility] [place] [address] 09/21/2024 2:45 PM EDT Office Visit [facility] and Spine Center at [facility] [place] [phone] Trung Hoyos MD [facility] [place] [address] documented as of this encounter Visit Diagnoses Not on filedocumented in this encounter Care Teams Smutter Relationship Specialty Start Date End Date Maximilian Fall MD [address] [place] [address] PCP - General 10/01/11 02/13/21 documented as of this encounter
--- OUTSIDE RECORDS SUMMARY | 2024-06-29 16:06 | XMS_ITS | Encounter Summary ---
Author Organization Formerly [facility] Address [facility] [place] [address] Care Team Providers Care Traffic Personnel Supervisor Name Role Phone Maximilian Fall MD Primary Care Provider [phone] Reason for Visit * Reason Comments Follow-up Encounter Details Date Type Department Care Team (Late st Contact Info) Description 09/17/2015 4:00 PM EDT Office [place] [address] Marcelle Weinberg APRN [facility] [place] [address] Left sided colitis, unspecified complication Social History Tobacco Use Types [...] Sign Reading Time Taken Comments Blood Pressure 135/74 09/17/2015 3:33 PM EDT Pulse 75 09/17/2015 3:33 PM EDT Temperature - - Respiratory Rate - - Oxygen Saturation - - Inhaled Oxygen Concentration - - Weight 114.9 kg (253 lb 6.4 oz) 09/17/2015 3:33 PM EDT Weighed with shoes. Height 193 cm (6' 4) 09/17/2015 3:33 PM EDT Body Mass Index 30.84 09/17/2015 3:33 PM EDT documented in this encounter Patient Instructions * Patient Instructions* Marcelle Weinberg APRN - 09/17/2015 4:06 PM EDT - continue Sulfasalazine 4 tabs twice daily - folic acid once daily - increase Rowasa (mesalamine) enema once every night - send stool studies if diarrhea recurs - Balmex ointment to affected area (anal area) twice daily. Call if perianal pain or symptoms gets worse documented in this encounter Progress Notes * Marcelle Weinberg APRN - 09/17/2015 3:20 PM EDT Patient Active Problem List Diagnosis ??? Ulcerative colitis Overview Note: ?? Colonoscopy 04/08/10 (Dr. Gomes [facility]) - inflammation only within the rectum and sigmoid; extent of the exam was to the hepatic flexure; biopsies proximal to the sigmoid nl ?? Repeat exam 11/27/11 ([facility]): mildly active colitis [...] Hydrocele ??? 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 Last seen Dr. Barlow 02/2015. The last 2 weeks with more diarrhea, 5-6 bm/day. He had a couple of episodes of blood in the stool,last one 2 weeks ago, w/c he attributed to long motorcycle trip for 2 months. However, today is a good day, only had one BM since 6AM of mostly soft-formed stool. No bleeding. He went up on his SSZ up to 4 tabs BID from 3 pills BID as per advised by his PCP given diarrheal sx's. He remains on Rowasa enema q other day. In addition, the perianal skin irritation has not changed much since his last visit with Dr. Barlow in February. It is not getting any worse but not completely better as of yet. He has been using the hypoallergenic cream (like Lubriderm or Eucerin) after bowel movements as recommended but not very helpful. He finds doing sitz bath is best but unable to do it during the day when he is out most of the time. His DM has not been well-controlled.His antidiabetic med's has been adjusted and followed closely by his PCP. His TSH is followed by his PCP as well. There has been no aphthous stomatitis, episcleritis, uveitis, inflammatory arthritis, pyoderma gangrenosum, erythema nodosum, or perianal lesions. REVIEW OF SYSTEMS as above. Physical Exam Constitutional: He appears well-developed and well-nourished. No distress. Abdominal: Soft. Bowel sounds are normal. He exhibits no distension and no mass. There is no tenderness. There is no guarding. Perianal: deferred as per patient reports similar to previous exam. LABS: Results for NAYA RODRIGUEZ ( ) as of 09/17/2015 15:23 Ref. Range 03/13/2015 14:00 WBC Latest Range: 4.0-10.0 x10(3)/mcL 6.3 RBC Latest Range: 4.63-6.08 x10(6)/mcL 3.99 (L) Hemoglobin Latest Range: 13.7-17.5 gm/dL 13.4 (L) Hematocrit Latest Range: 40.0-51.0 % 39.8 (L) MCV Latest Range: 79.0-92.0 fL 99.7 (H) MCH Latest Range: 25.6-32.2 pg 33.6 (H) MCHC Latest Range: 32.0-36.5 gm/dL 33.7 RDWSD Latest Range: 35.0-46.0 fL 45.6 RDWCV Latest Range: 10.9-14.4 % 12.5 Platelets Latest Range: 145-370 x10(3)/mcL 217 MPV Latest Range: 9.0-12.0 fL 11.6 Neutr Abs (ANC) Latest Range: 1.50-6.30 x10(3)/mcL 4.01 Neutrophils % No range found 64.1 Immature Gran % No range found 0.30 Lymphocytes % No range found 25.7 Monocytes % No range found 6.7 Eosinophils % No range found 2.7 Basophils % No range found 0.5 Sherry Gran Abs Latest Range: 0.00-0.05 x10(3)/mcL 0.02 Lymphocytes Abs Latest Range: 1.0-3.6 x10(3)/mcL 1.6 Monocyte Abs Latest Range: 0.2-1.0 x10(3)/mcL 0.4 Eosinophils Abs Latest Range: 0.0-0.5 x10(3)/mcL 0.2 Basophils Abs Latest Range: 0.0-0.2 x10(3)/mcL 0.0 Sodium Latest Range: 135-145 mmol/L 140 Potassium Latest Range: 3.5-5.0 mmol/L 4.2 Chloride Latest Range: 98-107 mmol/L 101 CO2 Latest Range: 22-31 mmol/L 26 Anion Gap Latest Range: 5-15 mmol/L 13 BUN Latest Range: 10-20 mg/dL 21 (H) Creatinine Latest Range: 0.80-1.50 mg/dL 1.05 Estimated GFR Latest Range: >=60 >60 Glucose Lvl Latest Range: 60-199 mg/dL 125 Calcium Latest Range: 8.5-10.5 mg/dL 9.9 Total Protein Latest Range: 6.1-8.0 gm/dL 8.0 Albumin Latest Range: 3.2-5.2 gm/dL 4.6 Total Bilirubin Latest Range: 0.2-1.3 mg/dL 0.4 Bili, Direct Latest Range: 0.0-0.3 mg/dL 0.1 Alk Phos Latest Range: 40-120 unit/L 58 AST Latest Range: 0-39 unit/L 19 ALT Latest Range: 0-55 unit/L 27 CRP High Sens No range found 2.1 TSH Latest Range: 0.27-4.20 mcIU/mL 5.66 (H) ASSESSMENT AND PLAN: Ulcerative colitis, on sulfasalazine 4 tabs BID and Rowasa enema q other night. Over the past couple of weeks with increased diarrhea except today feels better. Differential includes: UC active disease vs infection. For now, - labs today and - stool studies, if with diarrhea. - continue Sulfasalazine 4 tabs twice daily - folic acid once daily - increase Rowasa (mesalamine) enema once every night - send stool studies if diarrhea recurs - will try Balmex ointment to affected area (anal area) twice daily for now. However, he would call if perianal pain or symptoms get worse then would need further evaluation. - call us in [address] Barlow in 6 months or sooner with me if needed. documented in this encounter Plan of Treatment Upcoming Encounters Date Type Department Care Team (Late st Contact Info) Description 08/15/2024 9:00 AM EDT Office [place] [address] Dion Barlow MD [facility] [place] [address] 09/01/2024 11:20 AM EDT Office Visit Dermatology at [place] [address] [place] [address] Gómez Mercer MD [facility] DR EDDIE [place] [address] 09/21/2024 2:45 PM EDT Office Visit [facility] [place] [phone] Trung Hoyos MD [facility] [place] [address] documented as of this encounter Procedures Procedure Name Priority Date/Time Associated Diagnosis Comments CMP W/FASTING GLUCOSE Routine 09/17/2015 4:30 PM EDT Left sided colitis, unspecified complication HEMOGRAM Routine 09/17/2015 4:30 PM EDT Left sided colitis, unspecified complication DIFFERENTIAL, AUTOMATED Routine 09/17/2015 4:30 PM EDT Left sided colitis, unspecified complication SEDIMENTATION RATE Routine 09/17/2015 4: 30 PM EDT Left sided colitis, unspecified complication CBC (WITH DIFF) Routine 09/17/2015 4:30 PM EDT Left sided colitis, unspecified complication CRP, CARDIAC RISK (HS CRP) Routine 09/17/2015 4:30 PM EDT Left sided colitis, unspecified complication documented in this encounter Results * Differential, Automated (09/17/2015 4:30 PM EDT) Neutrophil % 63.9 % CERNER MILLENNIUM Neutrophil Absolute 4.27 1.50 - 6.30 x10(3)/mcL CERNER MILLENNIUM Lymph % 25.7 % CERNER MILLENNIUM Lymphocytes Abs 1.7 1.0 - 3.6 x10(3)/mcL CERNER MILLENNIUM Monocyte % 6.0 % CERNER MILLENNIUM Monocyte Abs 0.4 0.2 - 1.0 x10(3)/mcL CERNER MILLENNIUM Eos % 3.4 % CERNER MILLENNIUM Eosinophils Abs 0.2 0.0 - 0.5 x10(3)/mcL CERNER MILLENNIUM Basophil % 0.4 % CERNER MILLENNIUM Baso Absolute 0.0 0.0 - 0.2 x10(3)/mcL CERNER MILLENNIUM Immature Gran % 0.60 % CERN ER MILLENNIUM Comment: Immature granulocytes(IG's)percentage and absolute count will include metamyelocytes, myelocytes, and promyelocytes. Blood smears from CBCs yielding IG's will be scanned manually for concordance. If this scan disagrees with the automated IG or if promyelocytes are noted, a manual differential will be performed. Immature Gran Absolute 0.04 0.00 - 0.05 x10(3)/mcL CERNER MILLENNIUM Blood specimen (specimen) 09/17/2015 4:30 PM EDT 09/17/2015 4:33 PM EDT Narrative Resulting Agency Comment Spec In Lab L Karthik Barlow MD HEMATOLOGY ORDERABLE S Performing Organization Address [facility]/ZIP Co de Phone Number CERGIOVANNI COLBERTIUM * (ABNORMAL) Hemogram (09/17/2015 4:30 PM EDT) Pathologist [facility] [place] White Blood Cell 6.7 4.0 - 10.0 x10(3)/mc L CERNER MILLENNIUM Red Blood Cell 3.97(L) 4.63 - 6.08 x10(6)/mc L CERNER MILLENNIUM Hemoglobin 13.3(L) 13.7 - 17.5 gm/dL CERNER MILLENNIUM Hematocrit 39.1(L) 40.0 - 51.0 % CERNER MILLENNIUM Mean Cell Volume 98.5(H) 79.0 - 92.0 fL CERNER MILLENNIUM Mean Cell Hemoglobin 33.5(H) 25.6 - 32.2 pg CERNER MILLENNIUM Mean Cell Hemoglobin Concentration 34.0 32.0 - 36.5 gm/dL CERNER MILLENNIUM Platelet 212 145 - 370 x10(3)/mc L CERNER MILLENNIUM RDW Standard Deviation 45.8 35.0 - 46.0 fL CERNER MILLENNIUM RDW coefficient of variation 12.7 10.9 - 14.4 % CERNER MILLENNIUM Mean Platelet Volume 11.5 9.0 - 12.0 fL CERNER MILLENNIUM Blood specimen (specimen) 09/17/2015 4:30 PM EDT 09/17/2015 4:33 PM EDT Narrative Resulting Agency Comment Spec In Lab L Karthik Barlow MD HEMATOLOGY ORDERABLE S Performing Organization Address [facility]/ZIP Co de Phone Number CERGIOVANNI COLBERTIUM * High Sensitivity CRP (09/17/2015 4:30 PM EDT) Pathologist [facility] [place] C-Reactive Protein High Sensitivity 2.9 mg/L CERNER MILLENNIUM Comment: Interpretations: 1) For accurate cardiac risk [...] prevention. ??Circulation 2003; 107:[id number] Blood specimen (specimen) 09/17/2015 4:30 PM EDT 09/17/2015 4:33 PM EDT Narrative Resulting Agency Comment Spec In Lab L Karthik Barlow MD CHEMISTRY ORDERABLES Performing Organization Address [facility] de Phone Number DURGA [facility] * (ABNORMAL) Sedimentation rate (09/17/2015 4:30 PM EDT) Sedimentation Rate Automated 17(H) 0 - 15 mm/hr [facility] Blood specimen (specimen) 09/17/2015 4:30 PM EDT 09/17/2015 4:33 PM EDT Narrative Resulting Agency Comment Spec In Lab L Karthik Barlow MD HEMATOLOGY ORDERABLE S Performing Organization Address [facility] de Phone Number [facility] * (ABNORMAL) CMP w/fasting Glucose (09/17/2015 4:30 PM EDT) Glucose Fasting 140(H) 65 - 99 mg/dL [facility] Comment: ?Fasting* Glucose Interpretive Criteria Normal ?65-99 [...] of Diabetes Mellitus, Position Statement from the [place] [employer]. ??Diabetes Care, Volume 33, Supplement 1, Nov 2009 Blood Urea Nitrogen 17 10 - 20 mg/dL CERNER MILLENNIUM Creatinine 1.10 0.80 - 1.50 mg/dL CERNER MILLENNIUM Comment: Please note that the pediatric reference intervals supplied above were not validated at [facility]. Results from pediatric patients should be interpreted in conjunction to the patient's age, height and muscle mass. Sodium 142 135 - 145 mmol/L CERNER MILLENNIUM Potassium 4.1 3.5 - 5.0 mmol/L CERNER MILLENNIUM Comment: Please note: ??Patients with WBC >100,000 may have falsely elevated Potassium levels. ??For accurate Potassium quantification in these patients send serum separator tube (gold top) for subsequent determinations. ??Contact the Clinical Chemistry Laboratory if there are any questions. Chloride 103 98 - 107 mmol/L CERNER MILLENNIUM Carbon Dioxide 22 22 - 31 mmol/L CERNER MILLENNIUM Anion Gap 17(H) 5 - 15 mmol/L CERNER MILLENNIUM Calcium 10.0 8.5 - 10.5 mg/dL CERNER MILLENNIUM Protein, Total 7.9 6.1 - 8.0 gm/dL CERNER MILLENNIUM Albumin 4.4 3.2 - 5.2 gm/dL CERNER MILLENNIUM Aspartate Aminotransferase 17 0 - 39 unit/L CERNER MILLENNIUM Alanine Aminotransferase 27 0 - 55 unit/L CERNER MILLENNIUM Alkaline Phosphatase 51 40 - 120 unit/L CERNER MILLENNIUM Bilirubin, Total 0.2 0.2 - 1.3 mg/dL CERNER MILLENNIUM Bilirubin, [...] the following links into your internet browser. [email or web address] Blood specimen (specimen) 09/17/2015 4:30 PM EDT 09/17/2015 4:33 PM EDT Narrative Resulting Agency Comment Spec In Lab L Karthik Barlow MD CHEMISTRY ORDERABLES [facility] documented in this encounter Visit Diagnoses Diagnosis Left sided colitis, unspecified complication documented in this encounter Care Teams Traffic Personnel Supervisor Relationship Specialty Start Date End Date Maximilian Fall MD [address] [place] [address] PCP - General 10/01/11 02/13/21 documented as of this encounter
--- OUTSIDE RECORDS SUMMARY | 2024-06-29 16:06 | XMS_ITS | Encounter Summary ---
Author Organization Formerly [facility] [place] [address] Care Team Providers Care Director Of Residence Life Name Role Phone Maximilian Fall MD Primary Care Provider [phone] Reason for Visit * Reason Onset Date Comments Medication Refill 11/03/2013 Encounter Details Date Type Department Care Team (Late Contact Info) Description 11/03/2013 [place] [address] Dion Barlow MD [facility] [place] [address] Social History Tobacco Use Types Packs/Day Years [...] encounter Miscellaneous Notes * Telephone Encounter - Nicole Saavedra RN - 11/03/2013 12:47 PM EST Pharmacy called about RX for sulfadiazine, should ? Be sulfasalazine. Checked with Dr Barlow and it should be [id number] take 2 tabs twice a day or 2GM documented in this encounter Plan of Treatment Upcoming Encounters Date Type Department Care Team (Late st Contact Info) Description 08/15/2024 9:00 AM EDT Office [place] [address] Dion Barlow MD [facility] [place] [address] 09/01/2024 11:20 AM EDT Office Visit Dermatology at [facility] [address] [place] [address] Gómez Mercer MD [facility] [place] [address] 09/21/2024 2:45 PM EDT Office Visit [place] [address] Trung Hoyos MD [facility] [place] [address] documented as of this encounter Visit Diagnoses Not on filedocumented in this encounter Care Teams Director Of Residence Life Relationship Specialty Start Date End Date Maximilian Fall MD [address] [place] [address] PCP - General 10/01/11 02/13/21 documented as of this encounter
--- OUTSIDE RECORDS SUMMARY | 2024-06-29 16:06 | XMS_ITS | Encounter Summary ---
Author Organization [facility] [place] [address] Care Team Providers Care Grounds Keeper Name Role Phone Maximilian Fall MD Primary Care Provider [phone] Encounter Details Date Type Department Care Team (Late st Contact Info) Description 09/30/2012 Telephone [place] [phone] Lilliana Reece RN Social History Tobacco Use [...] Encounter - Lilliana Up RN - 09/30/2012 12:00 PM EST Images from the original note were not included. Per TASNEEM Palencia: Message left asking pt to call back confirming that he received the letter regarding below. Brian Rodriguez - 09/20/12 ','<More Detail >> From Marcelle Weinberg APRN Sent September 1:25 PM To Lilliana Up RN Subject labs Message Lilliana Verduzco, Could you let him know that TSH is borderline up and he needs T3, T4 And f/u with his PCP. Please help arrange this. louis ----- Message ----- From: Lab In [facility] Chong Sent: 09/20/2012 11:34 AM To: Marcelle Weinberg APRN Previously Viewed Results TSH Abnormal Status: Final result myD-H: Not Released Value Range TSH 4.77 (H) 0.27 - 4.20 mcIU/mL Lab Flowsheet Order Details View Encounter Lab and Collection Details Routing Result History Specimen Collected: 09/20/12 11:17 AM Last Resulted: 09/20/12 12:08 PM DIFFERENTIAL, AUTOMATED Status: Final result myD-H: Not Released Range 1wk 6mo 11mo Neutrophils % 34.0 - 71.0 % 63.0 82.7 (H) 65.0 Neutr Abs (ANC) 1.50 - 6.30 x10(3)/mcL 3.92 6.59 (H) 3.92 Lymphocytes % 19.0 - 53.0 % 27.2 14.1 (L) 25.7 Lymphocytes Abs 1.0 - 3.6 x10(3)/mcL 1.7 1.1 1.6 Monocytes % 4.0 - 13.0 % 6.6 2.8 (L) 5.6 Monocyte Abs 0.2 - 1.0 x10(3)/mcL 0.4 0.2 0.3 Eosinophils % 0.0 - 7.0 % 2.4 0.0 2.2 Eosinophils Abs 0.0 - 0.5 x10(3)/mcL 0.2 0.0 0.1 Basophils % 0.0 - 2.0 % 0.5 0.1 1.2 Basophils Abs 0.0 - 0.2 x10(3)/mcL 0.0 0.0 0.1 Immature Gran % 0.00 - 0.66 % 0.30 0.30 0.30 0 Sherry Gran Abs 0.00 - 0.05 x10(3)/mcL 0.02 0.02 0.02 Lab Flowsheet Order Details View Encounter Lab and Collection Details Routing Result History Specimen Collected: 09/20/12 11:17 AM Last Resulted: 09/20/12 11:34 AM CM=Additional comments documented in this encounter Plan of Treatment Upcoming Encounters Date Type Department Care Team (Late st Contact Info) Description 08/15/2024 9:00 AM EDT Office [place] [phone] Dion Barlow MD [facility] [place] [address] 09/01/2024 11:20 AM EDT Office Visit Dermatology at [place] [address] [place] [address] Gómez Mercer MD [facility] [address] 09/21/2024 2:45 PM EDT Office Visit [place] [address] Trung Hoyos MD [facility] [place] [address] documented as of this encounter Visit Diagnoses Not on filedocumented in this encounter Care Teams Grounds Keeper Relationship Specialty Start Date End Date Maximilian Fall MD [address] [place] [address] PCP - General 10/01/11 02/13/21 documented as of this encounter
--- OUTSIDE RECORDS SUMMARY | 2024-06-29 16:06 | XMS_ITS | Encounter Summary ---
Author Organization [facility] [place] [address] Care Team Providers Care Timber Repairer Name Role Phone Maximilian Fall MD Primary Care Provider [phone] Reason for Visit * Reason Onset Date Comments Medication Refill 11/22/2012 Encounter Details Date Type Department Care Team (Late st Contact Info) Description 11/22/2012 Refill [place] [phone] Dion Barlow MD [facility] [place] [address] Ulcerative colitis (Primary Dx) Social History Tobacco Use Types [...] 9:00 AM EDT Office Visit [place] [phone] Dion Barlow MD [facility] [place] [address] 09/01/2024 11:20 AM EDT Office Visit Dermatology at [facility] [address] [place] [address] Gómez Mercer MD [facility] DR EDDIE [place] [address] 09/21/2024 2:45 PM EDT Office Visit [facility] Sp[facility] Center at [facility] [place] [address] Trung Hoyos MD [facility] [place] [address] documented as of this encounter Visit Diagnoses Diagnosis Ulcerative colitis- Primary Ulcerative colitis, unspecified documented in this encounter Care Teams Timber Repairer Relationship Specialty Start Date End Date Maximilian Fall MD [address] [place] [address] PCP - General 10/01/11 02/13/21 documented as of this encounter
--- OUTSIDE RECORDS SUMMARY | 2024-06-29 16:06 | XMS_ITS | Encounter Summary ---
Author Organization Formerly [facility] [place] [address] Care Team Providers Care Stagecraft Teacher Name Role Phone Maximilian Fall MD Primary Care Provider [phone] Encounter Details Date Type Department Care Team (Late st Contact Info) Description 10/01/2012 4:15 PM EST - 10/01/2012 4:45 PM EST [place] [address] Dion Osullivan MD [facility] [address] UPPER GI ENDOSCOPY Social History Tobacco Use Types Packs/Day Years [...] this encounter Discharge Instructions * Discharge Instructions* Colvin, Khai B, RN - 10/01/2012 5:17 PM EST You [...] GI ENDOSCOPY: WHAT TO EXPECT AT HOME (BHUTANESE) documented in this encounter Medications at Time [...] Osullivan MD - 10/01/2012 5:07 PM EST [facility] [place] Patient Name: Naya Rodriguez : [id number] MR#: [id number] Case Date: 10/01/2012 Surgeon: Surgeon(s) and Role: [...] 9:00 AM EDT Office [place] [address] Dion Osullivan MD [facility] [place] [address] 09/01/2024 11:20 AM EDT Office Visit Dermatology at [facility] [address] [place] [address] Gómez Mercer MD [facility] DR ED[place] [address] 09/21/2024 2:45 PM EDT Office Visit [facility] [place] [phone] Trung Hoyos MD [facility] [place] [address] documented as of this encounter Procedures Procedure [...] 5:54 PM EST) Surgical Pathology Report ? [facility] ? Provider: ?? Dion OSULLIVAN ?Pt. Name: ?? NAYA RODRIGUEZ ? Acc #: ?[id number] ?Pt. ? Col Date: ?? 10/01/2012 ? [...] is: ? 62 yo with dyspepsia DURGA COLBERTIUM 10/01/2012 5:54 PM EST L Karthik Osullivan MD PATHOLOGY/CYTOLOGY O CEE Performing Organization Address [facility] Co de Phone Number DURGA FREDERICK * Specimen to Pathology (surgical or derm) (10/01/2012 5:09 PM EST) AP Specimen 10/01/2012 5:09 PM EST 10/01/2012 5:09 PM EST Narrative CERNER MILLENNIUM - 10/01/2012 5:09 PM EST Specimen requisition ordered. ??Separate Pathology report to follow L Karthik Osullivan MD PATHOLOGY/CYTOLOGY O CEE Performing Organization Address [facility] Co de Phone Number DURGA FREDERICK * UPPER GI ENDOSCOPY (10/01/2012 4:41 PM EST) UPPER GI ENDOSCOPY [facility] Endoscopy Patient Name: Naya Rodriguez ? Procedure Date: 10/01/2012 4:41 PM ? N: [id number] ? Date of : 1950 ? Age: 62 ? Order #: [id number] ? Procedure: ? Upper GI endoscopy Indications: ? Epigastric abdominal pain Providers: ? L Karthik Osullivan MD, Alannah Singletary, ? RN, Mona Osborne, Sports Doctor Referring MD: ?Maximilian Fall MD Medicines: ? [...] GENERAL SURGICAL ORD ERABLES Performing Organization Address [facility] de Phone Number PROVATION * POCT GLUCOSE (10/01/2012 4:27 PM EST) Glucose, POC 84 60 - 199 mg/dL CERNER MILLENNIUM Comment: Supplemental ranges: <110 mg/dL before meals <200 mg/dL all other times of the day Blood specimen (specimen) 10/01/2012 4:27 PM EST 10/01/2012 4:27 PM EST Dion Osullivan MD POINT OF CARE TEST O RDERABLES Performing Organization Address [facility] de Phone Number [facility] [employer] documented in this encounter Visit Diagnoses Diagnosis Dyspepsia Dyspepsia and other specified disorders of function of stomach documented in this encounter Administered Medications Inactive Administered Medications - up to 3 most recent administrations Medication Order MAR Action Action Date Dose Rate Site fentaNYL 50mcg/mL injection ONCE PRN, Starting on Thu10/01/12 at 1654, Until Thu10/01/12 at 2031, Pain, Intra-Operative (Intra-Procedure), Routine Given 10/01/2012 4:59 PM EST 50 mcg Given 10/01/2012 4:57 PM EST 50 mcg Given 10/01/2012 4:54 PM EST 50 mcg midazolam (VERSED) injection ONCE PRN, Starting on Thu10/01/12 at 1654, Until Thu10/01/12 at 2031, Sleep, Intra-Operative (Intra-Procedure), Routine Given 10/01/2012 4:57 PM EST 2 mg Given 10/01/2012 4:54 PM EST 1 mg documented in this encounter Active and Recently Administered Medications Times are shown in EST. PRN Medication Order 09/29/2012 09/30/2012 10/01/2012 fentaNYL 50mcg/mL injection (CANCELED) ONCE PRN, Starting on Thu10/01/12 at 1654, Until Thu10/01/12 at 2031, Pain, Intra-Operative (Intra-Procedure), Routine 1654 (Given - Provid er: Alannah Singletary RN)1657 (Given - Provider: Alannah Singletary RN)1659 (Given - Provider: Alannah Singletary RN) midazolam (VERSED) injection (CANCELED) ONCE PRN, Starting on Thu10/01/12 at 1654, Until Thu10/01/12 at 2031, Sleep, Intra-Operative (Intra-Procedure), Routine 1654 (Given - Provid er: Alannah Singletary RN)165 (Given - Provider: Alannah Singletary RN) documented in this encounter Care Teams Stagecraft Teacher Relationship Specialty Start Date End Date Maximilian Fall MD [address] [place] [address] PCP - General 10/01/11 02/13/21 documented as of this encounter
--- OUTSIDE RECORDS SUMMARY | 2024-06-29 16:06 | XMS_ITS | Encounter Summary ---
Author Organization [facility] [place] [address] Care Team Providers Care Rn Radiation Name Role Phone Maximilian Fall MD Primary Care Provider [phone] Encounter Details Date Type Department Care Team (Late st Contact Info) Description 11/08/2015 Orders Only [place] [address] Marcelle Weinberg, MANAGER TRAINING [facility] [place] [address] Urinary tract infection without hematuria, site unspecified Social History Tobacco Use Types Packs/Day Years [...] as of this encounter Progress Notes * Marcelle Weinberg, MANAGER TRAINING - 11/08/2015 5:53 PM EST I spoke with Brian for f/u and reviewed testing below. Since he started the cortfoam enema, feeling a lot better. As far a sthe back and hip pain, saw his PCP today and w/u in place. We also reviewed his Stool studies: negative. UA, CX +., still having dysuria. - will start Cipro 500 mg BID x7 days. Call us if any worsening sxs. Testings: Abd'l x-ray:Nonobstructive bowel gas pattern. No free intra-abdominal air. Ref. Range 11/06/2015 13:00 Color UA Latest Range: Yellow Kristina Appearance UA Latest Range: Clear Hazy (A) Spec [place] UA Latest Range: 1.002-1.030 1.020 pH UA [...] 1 Culture Reflexed No range found Yes URINE CULTURE No range found Rpt (A) Urine Culture (Abnormal) 50,000-99,000 cfu/ml Escherichia coli Specimen Source Information Specimen Type: Clean Catch Urine Susceptibility Escherichia coli MICROSCAN METHOD Amikacin Sensitive Ampicillin Resistant Ampicillin + Sulbactam Intermediate Aztreonam Sensitive Cefazolin Resistant Cefepime Sensitive Ceftazidime Sensitive Ceftriaxone Sensitive Cefuroxime Intermediate Ciprofloxacin Sensitive Gentamicin Sensitive Levofloxacin Sensitive Meropenem Sensitive Nitrofurantoin Sensitive Piperacillin/Tazobactam Sensitive Tetracycline Sensitive Tobramycin Sensitive Trimethoprim/Sulfa Sensitive Ref. Range 11/06/2015 13:49 11/06/2015 14:30 CAMPYLOBACTER ANTIGEN No range found Immunoassay Negative for Campylobacter Antigen C Diff Screen Latest Range: Negative Negative SHIGA TOXIN ASSAY No range found EIA Negative for Shiga Toxin 1 EIA Negative for Shiga Toxin 2 STOOL CULTURE No range found No enteric pathogens isolated documented in this encounter Plan of Treatment Upcoming Encounters Date Type Department Care Team (Late st Contact Info) Description 08/15/2024 9:00 AM EDT Office Visit [place] [address] Dion Barlow MD [facility] [place] [address] 09/01/2024 11:20 AM EDT Office Visit Dermatology at [place] [address] [place] [address] Gómez Mercer MD [facility] [place] [address] 09/21/2024 2:45 PM EDT Office Visit [facility] [place] [phone] Trung Hoyos MD [facility] [place] [address] documented as of this encounter Visit Diagnoses Diagnosis Urinary tract infection without hematuria, site unspecified documented in this encounter Care Teams Rn Radiation Relationship Specialty Start Date End Date Maximilian Fall MD [address] [place] [address] PCP - General 10/01/11 02/13/21 documented as of this encounter
--- OUTSIDE RECORDS SUMMARY | 2024-06-29 16:06 | XMS_ITS | Encounter Summary ---
Author Organization [facility] [place] [address] Care Team Providers Care City Magistrate Name Role Phone Maximilian Fall MD Primary Care Provider [phone] Reason for Visit * Reason Comments Follow-up Encounter Details Date Type Department Care Team (Late st Contact Info) Description 11/06/2015 11:00 AM EST Office [place] [address] Marcelle Weinberg APRN [facility] [place] [address] Chronic ulcerative enterocolitis, unspecified complication; Abdominal pain, unspecified abdominal location; Bilateral low back pain, with sciatica presence unspecified; Pain in right hip Social History Tobacco Use Types Packs/Day Years [...] Sign Reading Time Taken Comments Blood Pressure 131/80 11/06/2015 10:30 AM EST Pulse 92 11/06/2015 10:30 AM EST Temperature - - Respiratory Rate - - Oxygen Saturation - - Inhaled Oxygen Concentration - - Weight 114.8 kg (253 lb) 11/06/2015 10:30 AM EST Height 193 cm (6' 4) 11/06/2015 10:30 AM EST Body Mass Index 30.8 11/06/2015 10:30 AM EST documented in this encounter Progress Notes * Marcelle Weinberg, FUR REPAIRER - 11/06/2015 10:28 AM EST Patient Active Problem List Diagnosis ??? Ulcerative colitis Overview Note: ?? Colonoscopy 04/08/10 (Dr. Gomes [facility]) - inflammation only within the rectum and sigmoid; extent of the exam was to the hepatic flexure; biopsies proximal to the sigmoid nl ?? 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 At last visit in August, we increased his Rowasa enema to q hs due to increased sxs. I f/u with him end of August and he was doing well with formed stool. No bleeding. The perianal irritation has improved since he started Desitin ointment. He has done well until recently. A week ago started having diarrhea, bm 3x/day, watery, no bleeding, + nocturnal 1x/night. Associated with lower crampy abdominal pain. Also having right hip pain, muslce type of pain and even trouble lifting his right leg due to the pain. No injury. Called his PCP for this, but on vacation. He was told no one could see him today. No perianal pain. Dysuria on and off. No hematuria. Currently on: Sulfasalazine 4 tabs twice daily; folic acid once daily ; Rowasa (mesalamine) enema once every night However, having trouble retaining the Rowasa enema this past couple of nights. Denies antibiotic nor NSAIDs use prior to onset of sxs. Review of Systems - as above, the rests negative. Past Medical History Diagnosis Date ??? Ulcerative colitis 10/01/2011 ??? Diabetes mellitus 10/01/2011 ??? Hearing loss 10/01/2011 ??? GERD (gastroesophageal reflux disease) 10/01/2011 ??? Hydrocele 10/01/2011 ??? Asthma 10/01/2011 Past Surgical History Procedure Laterality Date ??? Pro colonoscopy, diagnostic 11/27/2011 COLONOSCOPY, DIAGNOSTIC performed by Dion OSULLIVAN at [facility] ENDOSCOPY ??? Pro sigmoidoscopy, diagnostic 03/16/2012 FLEXIBLE SIGMOIDOSCOPY performed by YUDI MALLOY at [facility] ENDOSCOPY ??? Upper gi endoscopy, exam 10/01/2012 UPPER GI ENDOSCOPY performed by Dion OSULLIVAN at [facility] ENDOSCOPY ??? Pro colonoscopy, diagnostic 07/13/2014 COLONOSCOPY, DIAGNOSTIC performed by Dion Osullivan MD at [facility] ENDOSCOPY Physical Exam Constitutional: He appears well-developed and well-nourished. No distress. Abdominal: Soft. Bowel sounds are normal. He exhibits no distension and no mass. There is tenderness (tender on RLQ on plaption, otherwise soft, non tender.). Tender on Right low back area on palpation. Musculoskeletal: He exhibits tenderness (tender on right hip area. Limited ROM on right leg due to pain with lifting leg. left leg normal.). LABS: Results for NAYA RODRIGUEZ ( ) as of 11/06/2015 10:31 Ref. Range 09/17/2015 16:30 WBC Latest Range: 4.0-10.0 x10(3)/mcL 6.7 RBC Latest Range: 4.63-6.08 x10(6)/mcL 3.97 (L) Hemoglobin Latest Range: 13.7-17.5 gm/dL 13.3 (L) Hematocrit Latest Range: 40.0-51.0 % 39.1 (L) MCV Latest Range: 79.0-92.0 fL 98.5 (H) MCH Latest Range: 25.6-32.2 pg 33.5 (H) MCHC Latest Range: 32.0-36.5 gm/dL 34.0 RDWSD Latest Range: 35.0-46.0 fL 45.8 RDWCV Latest Range: 10.9-14.4 % 12.7 Platelets Latest Range: 145-370 x10(3)/mcL 212 MPV Latest Range: 9.0-12.0 fL 11.5 Neutr Abs (ANC) Latest Range: 1.50-6.30 x10(3)/mcL 4.27 Neutrophils % Latest Units: % 63.9 Immature Gran % Latest Units: % 0.60 Lymphocytes % Latest Units: % 25.7 Monocytes % Latest Units: % 6.0 Eosinophils % Latest Units: % 3.4 Basophils % Latest Units: % 0.4 Sherry Gran Abs Latest Range: 0.00-0.05 x10(3)/mcL 0.04 Lymphocytes Abs Latest Range: 1.0-3.6 x10(3)/mcL 1.7 Monocyte Abs Latest Range: 0.2-1.0 x10(3)/mcL 0.4 Eosinophils Abs Latest Range: 0.0-0.5 x10(3)/mcL 0.2 Basophils Abs Latest Range: 0.0-0.2 x10(3)/mcL 0.0 Sed Rate Latest Range: 0-15 mm/hr 17 (H) Sodium Latest Range: 135-145 mmol/L 142 Potassium Latest Range: 3.5-5.0 mmol/L 4.1 Chloride Latest Range: 98-107 mmol/L 103 CO2 Latest Range: 22-31 mmol/L 22 Anion Gap Latest Range: 5-15 mmol/L 17 (H) BUN Latest Range: 10-20 mg/dL 17 Creatinine Latest Range: 0.80-1.50 mg/dL 1.10 Estimated GFR Latest Range: >=60 >60 Glucose Fasting Latest Range: 65-99 mg/dL 140 (H) Calcium Latest Range: 8.5-10.5 mg/dL 10.0 Total Protein Latest Range: 6.1-8.0 gm/dL 7.9 Albumin Latest Range: 3.2-5.2 gm/dL 4.4 Total Bilirubin Latest Range: 0.2-1.3 mg/dL 0.2 Bili, Direct Latest Range: 0.0-0.3 mg/dL 0.1 Alk Phos Latest Range: 40-120 unit/L 51 AST Latest Range: 0-39 unit/L 17 ALT Latest Range: 0-55 unit/L 27 CRP High Sens Latest Units: mg/L 2.9 ASSESSMENT AND PLAN: Ulcerative colitis, on sulfasalazine 4 tabs BID and Rowasa enema q night. Did well until about a week ago with non bloody diarrhea and lower abdominal pain. Differential included: UC flare vs infection. In addition, having right lower back to right hip pain. Will need to R/O sacroiliitis. Oher possibility is kidney stone vs musculoskeletal. Clinic course: - f/u labs today- done ,see below. - Abd'l X-ray and L/S X-ray. - will need UA - send stool studies - given RX for Cortifoam enema q hs x 4 weeks; if better then once every other night x 2 weeks; 3x/week x 2 weeks then off. - hold Rowasa enema since unable to retain. Once better with addition of cortifoam enema, consider to restart nightly.as tolerated. Addendum: Labs resulted and reviewed with pt. Elevated ESR/CRP likely from disease activity. L/S X-ray resulted, see below. Will have him see PCP for further management/recommendation. I called Dr. Fall's office and spoke with a nurse. She told me that Dr. Fall is in clinic and she would relay the messgae. They'll give him a call today to set up an appt. I reviewed this with pt. If he has not heard back later he'll call them. Results for NAYA RODRIGUEZ ( ) as of 11/06/2015 12:06 Ref. Range 11/06/2015 10:24 WBC Latest Range: 4.0-10.0 x10(3)/mcL 6.6 RBC [...] CRP High Sens Latest Units: mg/L 7.9 EXAMINATION: XR LUMBAR SPINE COMPLETE INCLUDING BENDING VIEW FINDINGS: There are 5 nonrib-bearing lumbar-type vertebral [...] flexion-extension views. No evidence for anterior retrolisthesis. IMPRESSION IMPRESSION: Degenerative changes of the upper lumbar spine with intervertebral disc space narrowing at T12-L1 L1-L2. No evidence for anterior retrolisthesis. No change on flexion-extension. There is mild straightening of the normal lumbar lordosis. For now, - continue Sulfasalazine 4 tabs twice daily - folic acid once daily - Hold Rowasa (mesalamine) enema for now since unable to retain. - start Cortifoam enema q hs x 4 weeks; if better then once every other night x 2 weeks; 3x/ week x2 weeks then off. - f/u on stool studies and UA and abd'l x-ray - call us in a week for update. If no better with corrtfoam enema, may need to add Uceris 9 mg daily vs Prednisone pending insurance coverage. - f/u with PCP today re: Right hip pain/low back pain/ L/S xray. Will fax reports to his PCP.. RTC with me in [address] Osullivan at his next available opening or in 6 months. documented in this encounter Plan of Treatment Upcoming Encounters Date Type Department Care Team (Late st Contact Info) Description 08/15/2024 9:00 AM EDT Office [place] [address] Dion Osullivan MD [facility] [place] [address] 09/01/2024 11:20 AM EDT Office Visit Dermatology at [facility] [address] [place] [address] Gómez Mercer MD [facility] [address] [place] [address] 09/21/2024 2:45 PM EDT Office Visit Pain and Spine Center at [facility] [place] [phone] Trung Hoyos MD [facility] [place] [address] documented as of this encounter Results * C. Difficile Screen (11/06/2015 2:30 PM EST) C Diff Interp Negative Negative CERNER MILLENNIUM Stool specimen (specimen) 11/06/2015 2:30 PM EST 11/06/2015 2:30 PM EST Narrative Resulting Agency Comment Spec In Lab L Karthik Osullivan MD MICROBIOLOGY - GENER AL ORDERABLES CERNER [employer]NIUM * (ABNORMAL) Urinalysis with reflex Culture (11/06/2015 [...] Urine Dipstick Hazy(A) Clear CERNER MILLENNIUM Specific [place] Urine Automated 1.020 1.002 - 1.030 CERNER [...] Agency Comment Spec In Lab L Karthik Osullivan MD URINE ORDERABLES CERNER MILLENNIUM * XR Abdomen Flat And Upright (11/06/2015 11:43 AM EST) Anatomical Region Laterality Modality Abdomen N/A Digital Radiogra phy Impressions 11/06/2015 1:06 PM EST IMPRESSION: Nonobstructive bowel gas pattern. No free intra-abdominal air. Narrative 11/06/2015 1:06 PM EST EXAMINATION: XR ABDOMEN ??FLAT AND UPRIGHT CLINICAL HISTORY: lower abdominal pain, h/o ulcerative colitis, diabetes TECHNIQUE: Upright and supine abdomen COMPARISON: None FINDINGS: Air is seen in scattered nondilated loops of small bowel. Air and fecal material are seen in nondilated colon to level of the rectum. No pneumatosis or thumbprinting. There are a few small nonspecific air-fluid levels in the right abdomen. No evidence of free intra-abdominal air. Lung bases are clear. Surgical clips in the pelvis and right upper quadrant. 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 Sacral iliac joints appear intact. Procedure Note Dayana Vann MD - 11/06/2015 EXAMINATION: XR ABDOMEN FLAT AND UPRIGHT CLINICAL HISTORY: lower abdominal pain, h/o ulcerative colitis, diabetes TECHNIQUE: Upright and supine abdomen COMPARISON: None FINDINGS: Air is seen in scattered nondilated loops of small bowel. Air and fecalmaterial are seen in nondilated colon to level of the rectum. No pneumatosis or thumbprinting. There are a few small nonspecific air-fluid levels in theright abdomen. No evidence of free intra-abdominal air. Lung bases are clear. Surgical clips in the pelvis and right upper quadrant. Deformity of theright iliac bone unchanged from the CT scan Abdomen-Pelvis of 2006, which wasfelt to be postsurgical. Sacral iliac joints appear intact. IMPRESSION IMPRESSION: Nonobstructive bowel gas pattern. No free intra-abdominal air. L Karthik Osullivan MD IMG DX ORDERABLES documented in this encounter Visit Diagnoses Diagnosis Chronic ulcerative enterocolitis, unspecified complication Abdominal pain, unspecified abdominal location Bilateral low back pain, with sciatica presence unspecified Pain in right hip Pain in joint, pelvic region and thigh Pain in right hip Pain in joint, pelvic region and thigh Bilateral low back pain, with sciatica presence unspecified Abdominal pain, unspecified abdominal location Chronic ulcerative enterocolitis, unspecified complication documented in this encounter Care Teams City Magistrate Relationship Specialty Start Date End Date Maximilian Fall MD [address] [facility] [address] [place] [address] PCP - General 10/01/11 02/13/21 documented as of this encounter
--- OUTSIDE RECORDS SUMMARY | 2024-06-29 16:06 | XMS_ITS | Encounter Summary ---
Author Organization [facility] [place] [address] Care Team Providers Care Enterprise Architect Manager Name Role Phone Maximilian Fall MD Primary Care Provider [phone] Encounter Details Date Type Department Care Team (Late st Contact Info) Description 11/05/2015 Telephone [place] [phone] Bethany Trivedi RN Social History Tobacco Use [...] Telephone Encounter - Bethany Trivedi RN - 11/05/2015 3:43 PM EST Brian calls with complaints of a week of watery diarrhea up to 6 times a day and abdominal cramping. He denies bleeding but does have some hip pain. He has been using the Rowasa enemas nightly and his Sulfasalazine. He is questioning if he should do stool studies or go to his local ED, which he does not want to do. After discussion decision as made to have Brian come to see Farideh tomorrow with labs and stool studies prior to appt. documented in this encounter Plan of Treatment Upcoming Encounters Date Type Department Care Team (Late st Contact Info) Description 08/15/2024 9:00 AM EDT Office [place] [address] Dion Barolw MD [facility] [place] [address] 09/01/2024 11:20 AM EDT Office Visit Dermatology at [facility] [address] [place] [phone] Gómez Mercer MD [facility] [place] [address] 09/21/2024 2:45 PM EDT Office Visit [facility] [place] [address] Trung Hoyos MD [facility] [place] [address] documented as of this encounter Results * (ABNORMAL) Sedimentation rate (11/06/2015 10:24 AM EST) [facility] Sedimentation Rate Automated 22(H) 0 - 15 mm/hr [facility] Blood specimen (specimen) 11/06/2015 10:24 AM EST 11/06/2015 10:28 AM EST Narrative Resulting Agency Comment Spec In Lab L Karthik Barlow MD HEMATOLOGY ORDERABLE S [facility] [employer] * (ABNORMAL) Comprehensive metabolic panel (non-fasting) (11/06/2015 10:24 AM EST) [facility] Glucose 81 65 - 199 mg/dL [facility] [employer] Comment:Diabetes: >=200 mg/d L plus symptoms Blood Urea Nitrogen 14 10 - 20 mg/dL [facility] [employer] Creatinine 1.15 0.80 - 1.50 mg/dL [facility]ERNER MILL[facility] Comment: Please note that the pediatric reference intervals supplied above were not validated at [facility]. Results from pediatric patients should be interpreted [...] the following links into your internet browser. [email or web address] Blood specimen (specimen) 11/06/2015 10:24 AM EST 11/06/2015 10:28 AM EST Narrative Resulting Agency Comment Spec In Lab L Karthik Barlow MD CHEMISTRY ORDERABLES Performing Organization Address [facility] de Phone Number DURGA FREDERICK * High Sensitivity CRP (11/06/2015 10:24 AM EST) C-Reactive Protein High Sensitivity 7.9 mg/L DURGA FREDERICK Comment: Interpretations: 1) For accurate cardiac risk [...] and Cardiovascular Disease. ??Circulation 2003; 107:499-511 2. Bandar PM. ??Clinical applications of C-reactive protein for cardiovascular disease detection and prevention. ??Circulation 2003; 107:363-369 Blood specimen (specimen) 11/06/2015 10:24 AM EST 11/06/2015 10:28 AM EST Narrative Resulting Agency Comment Spec In Lab L Karthik Barlow MD CHEMISTRY ORDERABLES Performing Organization Address [facility] de Phone Number DURGA FREDERICK documented in this encounter Visit Diagnoses Diagnosis Ulcerative colitis, without complications Diarrhea documented in this encounter Care Teams Enterprise Architect Manager Relationship Specialty Start Date End Date Maximilian Fall MD [address] [place] [address] PCP - General 10/01/11 02/13/21 documented as of this encounter
--- OUTSIDE RECORDS SUMMARY | 2024-06-29 16:06 | XMS_ITS | Encounter Summary ---
Author Organization [facility] [place] [address] Care Team Providers Care Leather Tooler Name Role Phone Maximilian Fall MD Primary Care Provider [phone] Encounter Details Date Type Department Care Team (Late st Contact Info) Description 09/21/2015 Telephone [place] [address] Marcelle Weinberg, CORONER [facility] [place] [address] Social History Tobacco Use Types Packs/Day Years [...] Telephone Encounter - Marcelle Weinberg, JAZMINE - 09/21/2015 1:51 PM EDT I called Brian and reviewed his labs, see below. He is feeling better. Having formed stool. No bleeding. The perianal irritation has improved since he started Desitin ointment. He is on : - sulfasalazine 4 tabs twice daily - folic acid once daily - Rowasa (mesalamine) enema once every night(increased at our last visit), feels helpful. Will stay on this for 4 weeks; then go back to Q other night. - OK to hold off on stool studies since no longer having diarrhea. Ref. Range 09/17/2015 16:30 WBC Latest Range: [...] Latest Range: 1.50-6.30 x10(3)/mcL 4.27 Neutrophils % No range found 63.9 Immature Gran % No range found 0.60 Lymphocytes % No range found 25.7 Monocytes % No range found 6.0 Eosinophils % No range found 3.4 Basophils % No range found 0.4 Sherry Gran Abs Latest Range: 0.00-0.05 [...] 27 CRP High Sens No range found 2.9 documented in this encounter Plan of Treatment Upcoming Encounters Date Type Department Care Team (Late st Contact Info) Description 08/15/2024 9:00 AM EDT Office Visit Gastroenterology at [place] [phone] Dion Barlow MD [facility] [place] [address] 09/01/2024 11:20 AM EDT Office Visit Dermatology at [facility] [address] [place] [address] Gómez Mercer MD [facility] DR [place] [address] 09/21/2024 2:45 PM EDT Office Visit [facility] [place] [address] Trung Hoyos MD [facility] [place] [address] documented as of this encounter Visit Diagnoses Not on filedocumented in this encounter Care Teams Leather Tooler Relationship Specialty Start Date End Date Maximilian Fall MD [address] [place] [address] PCP - General 10/01/11 02/13/21 documented as of this encounter
--- OUTSIDE RECORDS SUMMARY | 2024-06-29 16:06 | XMS_ITS | Encounter Summary ---
Author Organization [facility] [place] [address] Care Team Providers Care Director Data Management Name Role Phone More Naylor MD Primary Care Provider [phone] Reason for Visit * Reason Comments Follow-up Encounter Details Date Type Department Care Team (Late st Contact Info) Description 09/20/2012 10:00 AM EDT Follow-Up [place] [address] Dion Barlow MD [facility] [place] [address] Ulcerative colitis (Primary Dx); Dyspepsia; UC (ulcerative colitis) Discharge Disposition: Home Social History Tobacco Use [...] Sign Reading Time Taken Comments Blood Pressure 124/90 09/20/2012 10:12 AM EDT Pulse 90 09/20/2012 10:12 AM EDT Temperature - - Respiratory Rate 20 09/20/2012 10:12 AM EDT Oxygen Saturation - - Inhaled Oxygen Concentration - - Weight 112.9 kg (249 lb) 09/20/2012 10:12 AM EDT Height 193 cm (6' 4) 09/20/2012 10:12 AM EDT Body Mass Index 30.31 09/20/2012 10:12 AM EDT documented in this encounter Patient Instructions * Patient Instructions* Dion Barlow MD - 09/20/2012 10:32 AM EDT 1. Continue sulfasalazine six pills twice per day and Rowasa each night. 2. Will check complete blood count, C-reactive protein, electrolytes, kidney function, and liver tests today. 3. Please take the omeprazole 30 min prior to breakfast on an empty stomach. 4. Plan on repeat endoscopy (last in 2003). Depending on findings, would consider cross-sectional imaging. 5. Follow-up with me at the time of endoscopy and then in the office 6 months. documented in this encounter Progress Notes * Dion Barlow MD - 09/20/2012 10:25 AM EDT Patient Active Problem List Diagnoses ??? Ulcerative colitis Colonoscopy 04/08/10 (Dr. Gomes [facility]) - inflammation only within the rectum and sigmoid; extent of the exam was to the hepatic flexure; biopsies proximal to the sigmoid nl [place] [place] mildly active colitis in [...] reflux disease) ??? Hydrocele ??? 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 At last visit, he resumed sulfasalazine 3 g bid, increased Rowasa to nightly. He misses doses with Rowasa about once per week, but he does not miss sulfasalazine. On a good day, he will have three bowel movements that are semi-formed. On a bad day, he will at least 6 stools per day with nocturnal symptoms. He was taking imodium with every meal which seemed to help the diarrhea. He has been awakening in the morning with pain in the chest radiating down to the mid abdomen. Thishas been on going for about two months. The pain will last 4-6 hours and can be intense. Occasionally, it is associated with dry heaves and also a lot of salivation. This has been occurring for abouttwo months. There has been no apthous stomatitis, episcleritis, uveitis, inflammatory arthritis, pyoderma gangrenosum, erythema nodosum, or perianal lesions. Review of Systems Constitutional: Negative for fever, chills, diaphoresis, activity change, appetite change and unexpected weight change. HENT: Negative for mouth sores. Eyes: Negative for pain and redness. Respiratory: Negative for cough and shortness of breath. Cardiovascular: Negative for chest pain and palpitations. Gastrointestinal: Positive for nausea, abdominal pain, diarrhea and blood in stool. Negative for vomiting and constipation. Epigastric - see HPI Genitourinary: Negative for dysuria and hematuria. Skin: Negative for rash. Neurological: Negative. Hematological: Negative. Psychiatric/Behavioral: Negative. Objective: Physical Exam Vitals reviewed. Constitutional: He is oriented to person, place, and time. He appears well- nourished. No distress. HENT: Mouth/Throat: Oropharynx is clear and moist. No oropharyngeal exudate. Eyes: Conjunctivae are normal. Pupils are equal, round, and reactive to light. Neck: Normal range of motion. Neck supple. Cardiovascular: Normal rate, regular rhythm and normal heart sounds. Pulmonary/Chest: Breath sounds normal. He has no wheezes. He has no rales. Abdominal: Soft. Bowel sounds are normal. He exhibits no distension and no mass. No tenderness. He has no rebound and no guarding. Diastasis recti noted without any hernia appreciated Lymphadenopathy: He has no cervical adenopathy. Neurological: He is alert and oriented to person, place, and time. Skin: Skin is warm and dry. No rash noted. Dystrophic nails on the L hand Psychiatric: He has a normal mood and affect. Wt Readings from Last 3 Encounters: 09/20/12 112.946 kg (249 lb) 04/21/12 108.863 kg (240 lb) 04/02/12 111.313 kg (245 lb 6.4 oz) Lab Results Component Value Date WBC 8.0 04/02/2012 RBC 4.29* 04/02/2012 HGB 14.2 04/02/2012 HCT 41.2 04/02/2012 MCV 96.0* 04/02/2012 MCH 33.1* 04/02/2012 MCHC 34.5 04/02/2012 PLATELET 231 04/02/2012 RDWCV 13.0 04/02/2012 Chemistry Component Value Date/Time NA 139 04/02/2012 13:39 K 4.2 04/02/2012 13:39 CL 102 04/02/2012 13:39 CO2 26 04/02/2012 13:39 BUN 14 04/02/2012 13:39 CREATININE 0.88 04/02/2012 13:39 Component Value Date/Time CALCIUM 9.8 04/02/2012 13:39 ALKPHOS 57 04/02/2012 13:39 AST 16 04/02/2012 13:39 ALT 29 04/02/2012 13:39 BILITOT 0.5 04/02/2012 13:39 Lab Results Component Value Date CRP 3.1 04/02/2012 Assessment and Plan: Mr. Rodriguez has left-sided ulcerative colitis with persistently active [id number] symptoms andmildly active disease endoscopically. His colitis symptoms are under reasonable control with sulfasalazine and Rowasa - though he is not in remission. We had discussed Azathioprine last spring, but he wa reticent due to the risks. He also has a new pain in the epigastrium that has been lasting for two months. This could be peptic in etiology though this seems somewhat unlikely given that he takes omeprazole. I think it is likely unrelated to his diastasis. We will start with an endoscopy. If is negative, then I would consider cross-sectional imaging. For his UC, we discussed continuing sulfasalazine 6 g per day in divided doses and continuing Rowasa, which he is tolerating well. We will check CBC, C- reactive protein, kidney tests, and liver teststoday. We discussed the following recommendations that were printed out for the patient: 1. Continue sulfasalazine six pills twice per day and Rowasa each night. 2. Will check complete blood count, C-reactive protein, electrolytes, kidney function, and liver tests today. 3. Please take the omeprazole 30 min prior to breakfast on an empty stomach. 4. Plan on repeat endoscopy (last in 2003). Depending on findings, would consider cross-sectional imaging. 5. Follow-up with me at the time of endoscopy and then in the office 6 months. CC: MORE NAYLOR MD [address] [facility] [address] documented in this encounter Plan of Treatment Upcoming Encounters Date Type Department Care Team (Late st Contact Info) Description 08/15/2024 9:00 AM EDT Office Visit [place] [address] Dion Barlow MD [facility] [place] [address] 09/01/2024 11:20 AM EDT Office Visit Dermatology at [place] [address] [place] [address] Gómez Mercer MD [facility] DR EDDIE [place] [address] 09/21/2024 2:45 PM EDT Office Visit [facility] [place] [phone] Trung Hoyos MD [facility] [place] [address] documented as of this encounter Procedures Procedure Name Priority Date/Time Associated Diagnosis Comments CMP W/FASTING GLUCOSE Routine 09/20/2012 11:17 AM EDT Dyspepsia Ulcerative colitis DIFFERENTIAL, AUTOMATED Routine 09/20/2012 11:17 AM EDT CBC (WITH DIFF) Routine 09/20/2012 11:17 AM EDT Dyspepsia Ulcerative colitis CRP, CARDIAC RISK (HS CRP) Routine 09/20/2012 11:17 AM EDT Ulcerative colitis TSH Routine 09/20/2012 11:17 AM EDT UC (ulcerative colitis) LIPASE Routine 09/20/2012 11:17 AM EDT Dyspepsia UPPER GI ENDOSCOPY Routine 09/20/2012 10 :34 AM EDT Dyspepsia documented in this encounter Results * DIFFERENTIAL, AUTOMATED (09/20/2012 11:17 AM EDT) Neutrophil % 63.0 34.0 - 71.0 % CERNER MILLENNIUM Neutrophil Absolute 3.92 1.50 - 6.30 x10(3)/mcL CERNER MILLENNIUM Lymph % 27.2 19.0 - 53.0 % CERNER MILLENNIUM Lymphocytes Abs 1.7 1.0 - 3.6 x10(3)/mcL CERNER MILLENNIUM Monocyte % 6.6 4.0 - 13.0 % CERNER MILLENNIUM Monocyte Abs 0.4 0.2 - 1.0 x10(3)/mcL CERNER MILLENNIUM Eos % 2.4 0.0 - 7.0 % CERNER MILLENNIUM Eosinophils Abs 0.2 0.0 - 0.5 x10(3)/mcL CERNER MILLENNIUM Basophil % 0.5 0.0 - 2.0 % CERNER MILLENNIUM Baso Absolute 0.0 0.0 - 0.2 x10(3)/mcL CERNER MILLENNIUM Immature Gran % 0.30 0.00 - 0.66 % CERNER MILLENNIUM Comment: Immature granulocytes(IG's)percentage and absolute count will include metamyelocytes, myelocytes, and promyelocytes. Blood smears from CBCs yielding IG's will be scanned manually for concordance. If this scan disagrees with the automated IG or if promyelocytes are noted, a manual differential will be performed. Immature Gran Absolute 0.02 0.00 - 0.05 x10(3)/mcL CERNER MILLENNIUM Blood specimen (specimen) 09/20/2012 11:17 AM EDT 09/20/2012 11:23 AM EDT L Karthik Barlow MD HEMATOLOGY ORDERABLE S DURGA FREDERICK * (ABNORMAL) TSH (09/20/2012 11:17 AM EDT) Thyroid Stimulating Hormone 4.77(H) 0.27 - 4.20 mcIU/mL DURGA FREDERICK Blood specimen (specimen) 09/20/2012 11:17 AM EDT 09/20/2012 11:23 AM EDT Narrative Resulting Agency Comment Spec In Lab L Karthik Barlow MD CHEMISTRY ORDERABLES Performing Organization Address [facility] de Phone Number DURGA FREDERICK * Lipase (09/20/2012 11:17 AM EDT) Lipase 32 0 - 60 unit/L DURGA FREDERICK Blood specimen (specimen) 09/20/2012 11:17 AM EDT 09/20/2012 11:23 AM EDT Narrative Resulting Agency Comment Spec In Lab L Karthik Barlow MD CHEMISTRY ORDERABLES Performing Organization Address [facility] de Phone Number DURGA FREDERICK * High Sensitivity CRP (09/20/2012 11:17 AM EDT) C-Reactive Protein High Sensitivity 3.7 mg/L [facility] Comment: Interpretations: 1) For cardiac risk assessment, two values (fasting or nonfasting sample acceptable) taken at least 2 weeks apart, should be averaged to provide a more reliable estimate of marker level. ??This laboratory uses the recommendations from the AHA/CDC Scientific Statement for interpretations of future risks of cardiovascular events: ? <1.0 mg/L: low risk 1.0 - 3.0 mg/L: moderate risk >3.0 mg/L: high risk groups for future cardiovascular events 2) The general reference range of apparently healthy individuals using this test is <5.0 mg/L (derived from the test package insert) A few words of caution: For cardiac assessment, when a value >10 mg/L is encountered, there should be a search for an acute inflammatory condition or infection (in patients with acute inflammation, the concentration can increase to >500 mg/L). ??The >10 mg/L should be discarded if such a situation exists, since the risk for coronary heart disease cannot be provided, and a repeat specimen, taken at least two weeks after resolution of the acute inflammatory condition, may allow for appraisal of coronary risk information. Please note that significantly decreased CRP values may be obtained from samples taken from patients who have been treated with carboxypenicillins. References: 1. Christiane ZHU et. al. ??AHA/CDC Scientific Statement: Markers of Inflammation and Cardiovascular Disease. ??Circulation 2003; 107:499-511 2. Bandar PM. ??Clinical applications of C-reactive protein for cardiovascular disease detection and prevention. ??Circulation 2003; 107:363-369 Blood specimen (specimen) 09/20/2012 11:17 AM EDT 09/20/2012 11:23 AM EDT Narrative Resulting Agency Comment Spec In Lab L Karthik Barlow MD CHEMISTRY ORDERABLES [facility] * (ABNORMAL) CMP w/fasting Glucose (09/20/2012 11:17 AM EDT) [facility] Glucose Fasting 110(H) 65 - 99 mg/dL [facility] Comment: ?Fasting* Glucose Interpretive Criteria Normal ?65-99 [...] of Diabetes Mellitus, Position Statement from the [place] Diabetes Association. ??Diabetes Care, Volume 33, Supplement 1, Nov 2009 Blood Urea Nitrogen 13 10 - 20 mg/dL [facility] Creatinine 0.81 0.80 - 1.50 mg/dL [facility] Comment: Please note that the pediatric reference intervals supplied above were not validated at [facility]. Results from pediatric patients should be interpreted in conjunction to the patient's age, height and muscle mass. Sodium 139 135 - 145 mmol/L CERNER MILLENNIUM Potassium 3.9 3.5 - 5.0 mmol/L CERNER MILLENNIUM Comment: Please note: ??Patients with WBC >100,000 may have falsely elevated Potassium levels. ??For accurate Potassium quantification in these patients send serum separator tube (gold top) for subsequent determinations. ??Contact the Clinical Chemistry Laboratory if there are any questions. Chloride 103 98 - 107 mmol/L CERNER MILLENNIUM Carbon Dioxide 25 22 - 31 mmol/L CERNER MILLENNIUM Anion Gap 11 5 - 15 mmol/L CERNER MILLENNIUM Calcium 9.6 8.5 - 10.5 mg/dL CERNER MILLENNIUM Protein, Total 8.0 6.4 - 8.3 gm/dL CERNER MILLENNIUM Albumin 4.5 3.2 - 5.2 gm/dL [facility]ERN[facility] MILLENNIUM Aspartate Aminotransferase 19 0 - 39 unit/L CERNER MILLENNIUM Alanine Aminotransferase 26 0 - 55 unit/L CERNER MILLENNIUM Alkaline Phosphatase 59 40 - 120 unit/L CERNER MILLENNIUM Bilirubin, Total 0.4 0.2 - 1.3 mg/dL CERNER MILLENNIUM Bilirubin, Direct 0.1 0.0 - 0.3 mg/dL CERNER MILLENNIUM Est Glomerular Filtration Rate >60 >=60 [facility]ER MILLENNIUM Comment: The National Kidney Disease Education Program (NKDEP) has recommended all laboratories report estimated GFR (eGFR) along with plasma creatinine measurements to assist you with recognition of early kidney disease. Caveats: ??Plasma creatinine should be at steady-state (unchanged within the past week). For patients multiply eGFR by 1.2. The MDRD equation was developed using patients between the ages of 18 and 70 years. ?? The MDRD equation has not been validated for patients < 18 years of age and should not be used to assess renal function in the pediatric population. ??The MDRD eGFR equation will also overestimate the true GFR of patients above the age of 70. ??This overestimation is variable but increases with age. At present, NKDEP does NOT recommend using the MDRD equation for drug dosing purposes and pharmacists should continue to use their current dosing methods. In addition, numerical eGFR values greater than 60 ml/min/1.73 square meters should be treated as > 60, and not an exact number due to greater inaccuracies at these higher values. Per NKDEP, they classify normal renal function as any GFR >60ml/min/1.73 square meters; chronic kidney disease when GFR <60, and renal failure when GFR <15. ??This calculation may not be valid for patients with atypical muscle mass (very lean or obese), acute renal failure, and in patients with diabetic kidney disease. References: http://nkdep.nih.gov/resources/NKDEP_Suggestn4Labs_0606_508.pdf http://www.kidney.org/professionals/kls/pdf/faq_gfr.pdf Duane K, Ania NA, Jasmin AK, Edson TS, Diogenes AD, Sangita ALMA ROSA. Relative performance of the MDRD and CKD-EPI equations for estimating glomerular filtration rate among patients with varied clinical presentations. Clin J Am Soc Nephrol;6:1963-72. Blood specimen (specimen) 09/20/2012 11:17 AM EDT 09/20/2012 11:23 AM EDT Narrative Resulting Agency Comment Spec In Lab L Karthik Barlow MD CHEMISTRY ORDERABLES [facility] * (ABNORMAL) CBC (with Diff) (09/20/2012 11:17 AM EDT) White Blood Cell 6.2 4.0 - 10.0 x10(3)/mc L CERNER MILLENNIUM Red Blood Cell 4.07(L) 4.63 - 6.08 x10(6)/mc L CERNER MILLENNIUM Hemoglobin 13.5(L) 13.7 - 17.5 gm/dL CERNER MILLENNIUM Hematocrit 40.5 40.0 - 51.0 % CERNER MILLENNIUM Mean Cell Volume 99.5(H) 79.0 - 92.0 fL CERNER MILLENNIUM Mean Cell Hemoglobin 33.2(H) 25.6 - 32.2 pg CERNER MILLENNIUM Mean Cell Hemoglobin Concentration 33.3 32.0 - 36.5 gm/dL CERNER MILLENNIUM Platelet 227 145 - 370 x10(3)/mc L CERNER MILLENNIUM RDW Standard Deviation 45.2 35.0 - 46.0 fL DURGA ORDOÑEZENNIUM RDW coefficient of variation 12.5 10.9 - 14.4 % [facility] Mean Platelet Volume 11.2 9.0 - 12.0 fL DURGA ORDOÑEZENNIUM Blood specimen (specimen) 09/20/2012 11:17 AM EDT 09/20/2012 11:23 AM EDT Narrative Resulting Agency Comment Spec In Lab L Karthik Barlow MD HEMATOLOGY ORDERABLE S DURGA FREDERICK documented in this encounter Visit Diagnoses Diagnosis Ulcerative colitis- Primary Ulcerative colitis, unspecified Dyspepsia Dyspepsia and other specified disorders of function of stomach UC (ulcerative colitis) Ulcerative colitis, unspecified documented in this encounter Care Teams Director Data Management Relationship Specialty Start Date End Date More Naylor MD [address] [place] [address] PCP - General 10/01/11 02/13/21 documented as of this encounter
--- OUTSIDE RECORDS SUMMARY | 2024-06-29 16:06 | XMS_ITS | Encounter Summary ---
Author Organization Formerly [facility] [place] [address] Care Team Providers Care It Engineer Name Role Phone Maximilian Fall MD Primary Care Provider [phone] Encounter Details Date Type Department Care Team (Latest Contact Info) Description 07/13/2014 1:25 PM EDT - 07/13/2014 4:30 PM EDT Hospital Encounter [place] [address] Dion Osullivan MD [facility] [place] [address] Discharge Disposition: Home Social History Tobacco Use [...] - 07/13/2014 4:14 PM EDT Please call [phone], before 5pm with problems, questions or concerns, after 5pm call the Hospital at [phone] and ask to speak to the Director Of Community Life concrete products dispatcher and the hardware press operator will contactthat person for you. Discharge [...] through Care Everywhere. * COLONOSCOPY : POSTOP (MALTESE) documented in this encounter Medications at Time [...] Osullivan MD - 07/13/2014 3:57 PM EDT [facility] Operative Note Patient Name: Naya Rodriguez : [id number] MR#: [id number] Case Date: 07/13/2014 Surgeon: Surgeon(s) and Role: * Dion Osullivan MD - Primary Preoperative diagnosis: UC, restage disease. (local)(sedate well) Postoperative diagnosis: * No post-op diagnosis entered * Procedure(s): COLONOSCOPY, DIAGNOSTIC Please see the Provation procedure report in the Procedures tab in eDH. * Miscellaneous - ProviderMathieu - 07/13/2014 2:52 PM EDT documented in this encounter Plan of Treatment Upcoming Encounters Date Type Department Care Team (Late st Contact Info) Description 08/15/2024 9:00 AM EDT Office [place] [address] Dion Osullivan MD [facility] [place] [address] 09/01/2024 11:20 AM EDT Office Visit Dermatology at [facility] [address] [place] [address] Gómez Mercer MD [facility] DR EDDIE [place] [address] 09/21/2024 2:45 PM EDT Office Visit [facility] [place] [phone] Trung Hoyos MD [facility] [place] [address] documented as of this encounter Procedures Procedure [...] (07/13/2014 3:58 PM EDT) Final Diagnosis ? [facility] ? Provider: ?? Dion OSULLIVAN ?Pt. Name: ?? NAYA RODRIGUEZ ? Acc #: ?[id number] ?Pt. ? Col Date: ?? 07/13/2014 ? [...] - Mucosal biopsies - R colon ? [facility] ? Provider: ?? Dion OSULLIVAN ?Pt. Name: ?? NAYA RODRIGUEZ ? Acc #: ?[id number] ?Pt. ? Col Date: ?? 07/13/2014 ? /Sex: ?1950,(64 years),Male ? Rec Date: ?? 07/13/2014 ? LOC: ?4T ? SURGICAL PATHOLOGY ? Clinical History: ? 64-year-old with a history of left sided UC ? Clinical Diagnosis: ? Same 07/14/2014 4:08 PM EDT [facility] GI Biopsy 07/13/2014 3:58 PM EDT 07/13/2014 3:58 PM EDT GI Biopsy 07/13/2014 3:58 PM EDT 07/13/2014 3:58 PM EDT GI Biopsy 07/13/2014 3:58 PM EDT 07/13/2014 3:58 PM EDT Dion Osullivan MD PATHOLOGY/CYTOLOGY O RDERABLES Performing Organization Address City/State/[facility] Co de Phone Number [facility] [place] [address] * Specimen to Pathology (surgical or derm) (07/13/2014 3:58 PM EDT) AP Specimen 07/13/2014 3:58 PM EDT 07/13/2014 3:58 PM EDT Narrative DURGA FREDERICK - 07/13/2014 3:58 PM EDT Specimen requisition ordered. ??Separate Pathology report to follow L Karthik Osullivan MD PATHOLOGY/CYTOLOGY O CEE Performing Organization Address [facility] de Phone Number [facility] FREDER[facility] * Specimen to Pathology (surgical or derm) (07/13/2014 3:58 PM EDT) AP Specimen 07/13/2014 3:58 PM EDT 07/13/2014 3:58 PM EDT Narrative DURGA FREDERICK - 07/13/2014 3:58 PM EDT Specimen requisition ordered. ??Separate Pathology report to follow L Karthik Osullivan MD PATHOLOGY/CYTOLOGY Ozzie MIKE Performing Organization Address [facility] de Phone Number DURGA FREDERICK * Specimen to Pathology (surgical or derm) (07/13/2014 3:58 PM EDT) AP Specimen 07/13/2014 3:58 PM EDT 07/13/2014 3:58 PM EDT Narrative DURGA FREDERICK - 07/13/2014 3:58 PM EDT Specimen requisition ordered. ??Separate Pathology report to follow L Karthik Osullivan MD PATHOLOGY/CYTOLOGY Ozzie MIKE Performing Organization Address [facility] de Phone Number DURGA FREDERICK * COLONOSCOPY (07/13/2014 2:51 PM EDT) COLONOSCOPY [facility] Patient Name: Naya Rodriguez ? Procedure Date: 07/13/2014 2:51 PM ? Date of : 1950 ? Age: 64 ? Order #: [id number] ? Procedure: ? Colonoscopy Indications: ? Follow-up of left-sided chronic ? ulcerative colitis Providers: ? L. Karthik Osullivan MD, Emily Quinn, ? RN, Luna Connors RN, Cam Ghosh ? Doug, Milling Machine Tender Referring MD: ?Maximilian Fall MD Medicines: ? Midazolam 7 [...] GENERAL SURGICAL ORD ERABLES Performing Organization Address City/State/[facility] Co de Phone Number PROVATION * POCT Glucose (07/13/2014 1:59 PM EDT) Glucose, POC 167 60 - 199 mg/dL CERNER MILLENNIUM Comment: Supplemental ranges: <140 mg/dL before meals <180 mg/dL all other times of the day Blood specimen (specimen) 07/13/2014 1:59 PM EDT 07/13/2014 1:59 PM EDT Dion Osullivan MD POINT OF CARE TEST O RDERABLES CERNER MILLENNIUM documented in this encounter Visit Diagnoses Not [...] 1:56 PM EDT 100 mL/hr 100 mL/hr documented in [...] uncomfortable) documented in this encounter Care Teams It Engineer Relationship Specialty Start Date End Date Maximilian Fall MD [address] [facility] [address] [place] [address] PCP - General 10/01/11 02/13/21 documented as of this encounter
--- OUTSIDE RECORDS SUMMARY | 2024-06-29 16:06 | XMS_ITS | Encounter Summary ---
Author Organization [facility] [place] [address] Care Team Providers Care Tree Marker Name Role Phone More Naylor MD Primary Care Provider [phone] Reason for Visit * Reason Comments Follow-up Encounter Details Date Type Department Care Team (Late st Contact Info) Description 03/06/2014 8:30 AM EDT Follow-[place] [address] Dion Barlow MD [facility] [place] [address] Ulcerative colitis, with rectal bleeding (Primary Dx) Discharge Disposition: Home Social History [...] Sign Reading Time Taken Comments Blood Pressure 139/75 03/06/2014 8:31 AM EDT Pulse 65 03/06/2014 8:31 AM EDT Temperature - - Respiratory Rate - - Oxygen Saturation - - Inhaled Oxygen Concentration - - Weight 112.9 kg (249 lb) 03/06/2014 8:31 AM EDT Height 193 cm (6' 4) 03/06/2014 8:31 AM EDT Body Mass Index 30.31 03/06/2014 8:31 AM EDT documented in this encounter Patient Instructions * Patient Instructions* Dion Barlow MD - 03/06/2014 8:58 AM EDT # Increase the sulfasalazine to 6 pills twice per day. # Discuss the possibility of going on Remicade with Dr. Naylor. I will talk with him as well to update him. # Complete blood count, urinalysis, and quantiferon gold. # Follow-up in 3 months with Farideh Weinberg APRN and with me in 6 months. documented in this encounter Progress Notes * Dion Barlow MD - 03/06/2014 8:43 AM EDT Patient Active Problem List Diagnoses ??? Ulcerative colitis Colonoscopy 04/08/10 (Dr. Gomes [facility]) - inflammation only within the rectum and sigmoid; extent of the exam was to the hepatic flexure; biopsies proximal to the sigmoid nl Repeat exam 11/27/11 ([facility] [place] [place] mildly active colitis in the sigmoid colon [...] disease) ??? Hydrocele ??? Asthma Subjective: HPI Mr. 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 I last saw him in October. He was having symptoms of active disease at the time. We discussed adding back Rowasa enemas, and we again discussed possibly using immunomodulators. He was reluctant. He continues to take Sulfasalazine 2 g PO bid. He stopped taking Rowasa because he had a lot of bloating and nausea. He was feeling very poorly a few months ago with frequent incontinence. He has changed his diet so that he is now avoiding dairy, no red meat. He feels this has helped significantly. He has been drinking a of maple syrup and thinks this may help - though he does not eat as much either when he is sugaring. However, he still awakens early in the morning to move his bowels. Frequency is about 4-5 times every morning with some leakage and red blood on the toilet tissue an/or in the toilet bowl every few days. He avoids eating later in the day. He is having up to 6-7 loose watery stools per day. About 1-2 months ago he saw some bright red blood. It was a small amount and has not recurred. There is alsointermittent abdominal cramping pain. No weight loss. There has been no apthous stomatitis, episcleritis, uveitis, inflammatory arthritis, pyoderma gangrenosum, erythema nodosum, or perianal lesions. Review of Systems Constitutional: Negative for fever, chills, diaphoresis, activity change, appetite change and unexpected weight change. HENT: Negative for mouth sores. Eyes: Negative for pain and redness. Respiratory: Negative for cough and shortness of breath. Cardiovascular: Negative for chest pain and palpitations. Gastrointestinal: Positive for diarrhea and blood in stool. Negative for vomiting, constipation andrectal pain. Epigastric - see HPI Genitourinary: Negative for dysuria and hematuria. Musculoskeletal: Positive for back pain and arthralgias. Skin: Negative for rash. Neurological: Negative. Hematological: Negative. Psychiatric/Behavioral: Negative. Objective: Physical Exam Vitals reviewed. Constitutional: He is oriented to person, place, and time. He appears well- nourished. No distress. HENT: Mouth/Throat: Oropharynx is clear and moist. No oropharyngeal exudate. Eyes: Conjunctivae normal are normal. Pupils are equal, round, and reactive to light. Neck: Normal range of motion. Neck supple. Cardiovascular: Normal rate, regular rhythm and normal heart sounds. Pulmonary/Chest: Breath sounds normal. He has no wheezes. He has no rales. Abdominal: Soft. Bowel sounds are normal. He exhibits no distension and no mass. There is no tenderness. There is no rebound and no guarding. Diastasis recti noted without any hernia appreciated Lymphadenopathy: He has no cervical adenopathy. Neurological: He is alert and oriented to person, place, and time. Skin: Skin is warm and dry. No rash noted. Dystrophic nails on the L hand Psychiatric: He has a normal mood and affect. Wt Readings from Last 3 Encounters: 03/06/14 112.946 kg (249 lb) 09/20/12 112.946 kg (249 lb) 04/21/12 108.863 kg (240 lb) Lab Results Component Value Date WBC 6.5 11/01/2013 RBC 4.41* 11/01/2013 HGB 14.6 11/01/2013 HCT 43.9 11/01/2013 MCV 99.5* 11/01/2013 MCH 33.1* 11/01/2013 MCHC 33.3 11/01/2013 PLATELET 202 11/01/2013 RDWCV 12.7 11/01/2013 Chemistry Component Value Date/Time NA 141 11/01/2013 1539 K 4.2 11/01/2013 1539 CL 101 11/01/2013 1539 CO2 26 11/01/2013 1539 BUN 11 11/01/2013 1539 CREATININE 0.91 11/01/2013 1539 Component Value Date/Time CALCIUM 10.0 11/01/2013 1539 ALKPHOS 55 11/01/2013 1539 AST 17 11/01/2013 1539 ALT 23 11/01/2013 1539 BILITOT 0.4 11/01/2013 1539 Lab Results Component Value Date CRP 3.7 09/20/2012 Assessment and Plan: Mr. Rodriguez has left-sided ulcerative colitis with persistently active moderate symptoms. He had responded to enemas in the past but most recently he had difficulty holding them and they also caused bloating. We had a long discussion about next steps of therapy. I do not think sulfasalazine alone has achieved remission for Mr. Rodriguez, and so we discussed changing therapies. Of immediate options to get him feeling better, I had thought about Uceris. Unfortunately, he does not qualify for the discount (Medicare Rx is excluded), and this drug is cost prohibitive for him. Considering an ~8-10 week course of prednisone for induction with the addition of an immunomodulator (azathioprine or 6MP) is reasonable, but we can anticipate that his blood sugars will very likely bedifficult to control on prednisone. I discussed the possibility of a clinical trial, but he is not interested. Lastly, vedolizumab would be an option. He would also need prednisone induction for that, and it is not yet available. It is expected within the next 1-2 months. I recommended considering Remicade monotherapy. I reviewed my patient education slide set, and reviewed specifics on what we know about side-effects of anti-TNF agents (Remicade). Risks presented include immediate and delayed infusion/injection site reactions; development of antibodies to the medication might reduce efficacy or promote allergic reactions, infection, including rare opportunisitc infections, tuberculosis or histoplasmosis, or most commonly, upper respiratory infections; positive [id number]-[id number] DNA antibodies, and rarely a lupus-like syndrome; the possible risk of lymphomais approximately 6 cases among 10,000 treated Crohn's disease patients (as opposed to baseline rate about 2/10,000; very rare demyelinating neurologic disease; worsening of CHF (if pre-existing); and rare sepsis related (approximately 4 cases among 1000 treated patients, but typically in older patients with comorbidities and taking concomitant immune suppressants). Expected benefit includes response in 60-70% of patients, with approximately 30-50% of those patients maintaining remission out to one year. Longer term remission data is uncertain. We need to balance these risks of adverse effects with his quality of life. Ideally, I would like to start Remicade and then repeat colonoscopy about 3 months after starting induction. He is very concerned about lymphoma risk. His grandmother of lymphoma. He also reports that his had lymph nodes involved with her recent george with cancer - though it is unclear to me if the primary was indeed actually lymphoma. After long discussion, he would like to discuss it further with Dr. Naylor. I told Mr. Rodriguez that I will also reach out to Dr. Naylor to discuss his case. We discussed the following recommendations that were printed out for the patient: # Increase the sulfasalazine to 6 pills twice per day. # Discuss the possibility of going on Remicade with Dr. Naylor. I will talk with him as well to update him. # Complete blood count, urinalysis, and quantiferon gold. # Follow-up in 3 months with Farideh Weinberg APRN and with me in 6 months. CC: MORE NAYLOR MD [address] [place] [address] documented in this encounter Plan of Treatment Upcoming Encounters Date Type Department Care Team (Late st Contact Info) Description 08/15/2024 9:00 AM EDT Office Visit [place] [phone] Dion Barlow MD [facility] [place] [address] 09/01/2024 11:20 AM EDT Office Visit Dermatology at [facility] [address] [place] [address] Gómez Mercer MD [facility] [place] [address] 09/21/2024 2:45 PM EDT Office Visit [facility] [place] [address] Trung Hoyos MD [facility] [place] [address] documented as of this encounter Procedures Procedure Name Priority Date/Time Associated Diagnosis Comments URINALYSIS WITH REFLEX CULTURE Routine 03/06/2014 9:42 AM EDT Ulcerative colitis, with rectal bleeding QUANTIFERON-TB GOLD Routine 03/06/2014 9 :39 AM EDT Ulcerative colitis, with rectal bleeding DIFFERENTIAL, AUTOMATED Routine 03/06/2014 9:39 AM EDT CBC (WITH DIFF) Routine 03/06/2014 9:39 AM EDT Ulcerative colitis, with rectal bleeding CRP, CARDIAC RISK (HS CRP) Routine 03/06/2014 9:39 AM EDT Ulcerative colitis, with rectal bleeding documented in this encounter Results * (ABNORMAL) Urinalysis with microscopic (03/06/2014 9:42 AM EDT) Glucose, Urine Dipstick Negative Negative mg/dL CERNER MILLENNIUM Protein, Urine Dipstick Trace(A) Neg mg/dL CERNER MILLENNIUM Bilirubin, Urine Dipstick Negative Negative mg/dL CERNER MILLENNIUM Comment: Clinical correlation required for positive Urine Bilirubin results as false positive may occur with some drugs and drug related products. If a false positive is suspected a serum total bilirubin should be considered if clinically indicated. Urobilinogen, Urine Dipstick Normal mg/dL CERNER MILLENNIUM pH, Urn (dipstick) 5.5 5.0 - 8.0 CERNER MILLENNIUM Blood, Urine Dipstick Negative mg/dL CERNER MILLENNIUM Ketone, Urine Dipstick Negative mg/dL CERNER MILLENNIUM Nitrite, Urine Dipstick Negative CERNER MILLENNIUM Leukocytes, Urine Dipstick Small(A) Neg mcL CERNER MILLENNIUM Appearance, Urine Dipstick Clear Clear CERNER MILLENNIUM Specific [place] Urine Automated 1.019 1.002 - 1.030 CERNER MILLENNIUM Color, Urine Dipstick Dark Yellow Yellow CERNER MILLENNIUM RBC, Urine 1 0 - 3 /HPF CERNER MILLENNIUM WBC, Urine 7(H) 0 - 3 /HPF CERNER MILLENNIUM Squamous Epithelial Cells, Urine 1 <=4 /HPF CERNER MILLENNIUM Transitional Epithelial Cells, Urine <1 <=1 /HPF CERNER MILLENNIUM Hyaline Casts, Urine 1 0 - 2 /LPF CERNER MILLENNIUM Urine specimen (specimen) 03/06/2014 9:42 AM EDT 03/06/2014 10:01 AM EDT Narrative Resulting Agency Comment Spec In Lab L Karthik Barlow MD URINE ORDERABLES CERNER MILLENNIUM * Differential, Automated (03/06/2014 9:39 AM EDT) Neutrophil % 64.8 34.0 - 71.0 % CERNER MILLENNIUM Neutrophil Absolute 3.24 1.50 - 6.30 x10(3)/mcL CERNER MILLENNIUM Lymph % 25.2 19.0 - 53.0 % CERNER MILLENNIUM Lymphocytes Abs 1.3 1.0 - 3.6 x10(3)/mcL CERNER MILLENNIUM Monocyte % 7.6 4.0 - 13.0 % CERNER MILLENNIUM Monocyte Abs 0.4 0.2 - 1.0 x10(3)/mcL CERNER MILLENNIUM Eos % 1.8 0.0 - 7.0 % CERNER MILLENNIUM Eosinophils Abs 0.1 0.0 - 0.5 x10(3)/mcL CERNER MILLENNIUM Basophil % 0.4 0.0 - 2.0 % CERNER MILLENNIUM Baso Absolute 0.0 0.0 - 0.2 x10(3)/mcL [facility] MILLENNIUM Immature Gran % 0.20 0.00 - 0.66 % [facility] MILLENNIUM Comment: Immature granulocytes(IG's)percentage and absolute count will include metamyelocytes, myelocytes, and promyelocytes. Blood smears from CBCs yielding IG's will be scanned manually for concordance. If this scan disagrees with the automated IG or if promyelocytes are noted, a manual differential will be performed. Immature Gran Absolute 0.01 0.00 - 0.05 x10(3)/mcL [facility] Blood specimen (specimen) 03/06/2014 9:39 AM EDT 03/06/2014 9:47 AM EDT L Karthik Barlow MD HEMATOLOGY ORDERABLE [facility] * QuantiFERON-TB Gold (03/06/2014 9:39 AM EDT) Quantiferon-TB Gold Negative Negative [facility] Comment: Nil (IU/mL)=0.03 TB Ag minus Nil (IU/mL)=0.00 Mitogen minus Nil (IU/mL)=>10 M. tuberculosis (TB) infection NOT likely ?A negative specimen should have a TB Ag minus Nil value less than 0.35 IU/mL OR a TB Ag minus Nil greater than or equal to 0.35 IU/mL and in addition the TB Ag minus Nil value must be less than 25% of the Nil value. A negative specimen should have a Mitogen minus Nil value greater than or equal to 0.5 IU/mL. ?A negative QuantiFERON-TB Gold IT result does not preclude the possibility of M. tuberculosis infection or tuberculosis disease: false negative results can be due to stage of infection (e.g., specimen obtained prior to the development of cellular immune response), co-morbid conditions which affect immune function, or other individual immunological factors. ?The performance of the QuantiFERON-TB Gold IT test has not been extensively evaluated with specimens from the following groups of individuals: ?1. Individuals who have impaired or altered immune function such as those who have HIV infection or AIDS, those who have transplantation managed with immunosuppressive treatment or others who receive immunosuppressive drugs (e.g., corticosteroids, methotrexate, azathioprine, cancer chemotherapy), and those who have other clinical conditions: diabetes, silicosis, chronic renal failure, hematological disorders (e.g., leukemia and lymphomas), and other specific malignancies (e.g., carcinoma of the head or neck and lung). ?2. Individuals younger than age 17 years. ?3. women. Note: Diagnosing or excluding tuberculosis disease, and assessing the probability of LTBI, require a combination of epidemiological, historical, medical, and diagnostic findings that should be taken into account when interpreting QuantiFERON-TB Gold results. Reference (http://www.cdc.gov/nchstp/tb/) Blood specimen (specimen) 03/06/2014 9:39 AM EDT 03/07/2014 8:02 AM EDT Narrative Resulting Agency Comment Spec In Lab L Karthik Barlow MD CHEMISTRY ORDERABLES [facility] * High Sensitivity CRP (03/06/2014 9:39 AM EDT) [facility] C-Reactive Protein High Sensitivity 1.7 mg/L DURGA FREDERICK Comment: Interpretations: 1) For [...] prevention. ??Circulation 2003; [phone]:[id number] Blood specimen (specimen) 03/06/2014 9:39 AM EDT 03/06/2014 9:47 AM EDT Narrative Resulting Agency Comment Spec In Lab L Karthik Barlow MD CHEMISTRY ORDERABLES CERNER MILLENNIUM * (ABNORMAL) CBC (with Diff) (03/06/2014 9:39 AM EDT) White Blood Cell 5.0 4.0 - 10.0 x10(3)/mc L CERNER MILLENNIUM Red Blood Cell 4.07(L) 4.63 - 6.08 x10(6)/mc L CERNER MILLENNIUM Hemoglobin 13.8 13.7 - 17.5 gm/dL CERNER MILLENNIUM Hematocrit 41.4 40.0 - 51.0 % CERNER MILLENNIUM Mean Cell Volume 101.7(H) 79.0 - 92.0 fL CERNER MILLENNIUM Mean Cell Hemoglobin 33.9(H) 25.6 - 32.2 pg CERNER MILLENNIUM Mean Cell Hemoglobin Concentration 33.3 32.0 - 36.5 gm/dL CERNER MILLENNIUM Platelet 210 145 - 370 x10(3)/mc L CERNER MILLENNIUM RDW Standard Deviation 47.4(H) 35.0 - 46.0 fL CERNER MILLENNIUM RDW coefficient of variation 12.9 10.9 - 14.4 % CERNER MILLENNIUM Mean Platelet Volume 11.6 9.0 - 12.0 fL CERNER MILLENNIUM Blood specimen (specimen) 03/06/2014 9:39 AM EDT 03/06/2014 9:47 AM EDT Narrative Resulting Agency Comment Spec In Lab L Karthik Barlow MD HEMATOLOGY ORDERABLE S Performing Organization Address City/State/[facility] Co hi Phone Number [facility] documented in this encounter Visit Diagnoses Diagnosis Ulcerative colitis, with rectal bleeding- Primary documented in this encounter Care Teams Tree Marker Relationship Specialty Start Date End Date More Naylor MD [address] [place] [address] PCP - General 10/01/11 02/13/21 documented as of this encounter
--- OUTSIDE RECORDS SUMMARY | 2024-06-29 16:06 | XMS_ITS | Encounter Summary ---
Author Organization [facility] [place] [address] Care Team Providers Care Schedule Checker Name Role Phone Maximilian Fall MD Primary Care Provider [phone] Encounter Details Date Type Department Care Team (Late st Contact Info) Description 09/11/2014 [place] [phone] Bethany Trivedi RN Other ulcerative colitis (Primary Dx) Social History Tobacco Use [...] 9:00 AM EDT Office [place] [address] Dion Barlow MD [facility] [place] [address] 09/01/2024 11:20 AM EDT Office Visit Dermatology at [facility] [address] [place] [address] Gómez Mercer MD [facility] [address] [place] [address] 09/21/2024 2:45 PM EDT Office Visit [facility] [place] [address] Trung Hoyos MD [facility] [place] [address] documented as of this encounter Visit Diagnoses Diagnosis Other ulcerative colitis- Primary documented in this encounter Care Teams Schedule Checker Relationship Specialty Start Date End Date Maximilian Fall MD [address] [place] [address] PCP - General 10/01/11 02/13/21 documented as of this encounter
--- OUTSIDE RECORDS SUMMARY | 2024-06-29 16:06 | XMS_ITS | Encounter Summary ---
Author Organization [facility] [place] [address] Care Team Providers Care Civil Engineering Project Manager Name Role Phone Maximilian Fall MD Primary Care Provider [phone] Reason for Visit * Reason Comments Follow-up Encounter Details Date Type Department Care Team (Late st Contact Info) Description 03/13/2015 1:00 PM EDT [place] [address] Dion Barlow MD [facility] [place] [address] Ulcerative colitis, other complication; Lethargy; Other ulcerative colitis Discharge Disposition: Home Social History Tobacco Use [...] Sign Reading Time Taken Comments Blood Pressure 126/73 03/13/2015 12:34 PM EDT Pulse 98 03/13/2015 12:34 PM EDT Temperature - - Respiratory Rate - - Oxygen Saturation - - Inhaled Oxygen Concentration - - Weight 112.9 kg (249 lb) 03/13/2015 12:34 PM EDT Height 193 cm (6' 4) 03/13/2015 12:34 PM EDT Body Mass Index 30.31 03/13/2015 12:34 PM EDT documented in this encounter Patient Instructions * Patient Instructions* Dion Barlow MD - 03/13/2015 1:40 PM EDT # Increase sulfasalazine back up to 3 pills twice per day (3 g). # Will look into alternatives to sulfasalazine and let you know about possibly changing to a different medication. # Check complete blood count, liver tests, electrolytes including calcium, TSH, and creatinine. # Okay to use 1-2 tabs (or teaspoons) Imodium three times per per day before eating. # Recommend wiping with a hypoallergenic cream (like Lubriderm or Eucerin) after bowel movements. # Follow-up with me in the office in 6 months or sooner. documented in this encounter Progress Notes * Dion Barlow MD - 03/13/2015 1:07 PM EDT Patient Active Problem List Diagnosis ??? Ulcerative colitis Overview Note: ?? Colonoscopy 04/08/10 (Dr. Gomes [facility]) - inflammation only within the rectum and sigmoid; extent of the exam was to the hepatic flexure; biopsies proximal to the sigmoid nl ?? [place] mildly active colitis in the sigmoid colon [...] ulcerative proctosigmoiditis. I last saw him in August of last year in the office. In June of last year, his colitis was well-controlled endoscopically. At last visit, he was on sulfasalazine 4 pills three times per day (total of 6 g). He had been on Rowasa enemas that he had stopped about 2-3 weeks prior to our appointment in August because symptoms were improved. I had recommended restarting enemas 2-3 times per week. He had been feeling well with 2 formed stools per day at that time. He reports that he has been very tired without any ambition all winter. Therefore, on his own, hedecreased his dose of SSZ to 3 tablets (1.5 g) per day. He feels that his energy has improved since. He also stopped the enemas because he says that he would be incontinent of the enemas at night. His diarrhea has been back for the last 2-3 weeks. On a bad day, he is having 5- 6 stools per day. Stools are all loose and often watery. There is significant urgency. Occasionally, he sees blood on tissue or in the toilet bowl. Intermittently, he has rawness at the rectum where it hurts to touch.Three is not pain with defecation. He feels a bunch in the left side of the rectum that is somewhat painful but he is not able palpate it. He recently saw Dr. Fall who, per Mr. Rodriguez, did not seeanything worrisome. There has been no apthous stomatitis, episcleritis, uveitis, inflammatory arthritis, pyoderma gangrenosum, erythema nodosum, or perianal lesions. REVIEW OF SYSTEMS Notable for the gastrointestinal symptoms as described above. There has been no anorexia, fever, orunintended weight change; no red or painful eyes; no oral ulcers, chronic oral lesions, or chronic sore throat. There is no cough, shortness of breath, palpitations, or chest pain. There is no dysuria. Has chronic arthralgias in the knees, hips, back. There is no recent skin rash. The patient denies psychiatric problems. There are no neurologic symptoms or easy bruising or bleeding. PHYSICAL EXAMINATION: Filed Vitals: 03/13/15 1234 BP: 126/73 Pulse: 98 Wt Readings from Last 3 Encounters: 03/13/15 112.946 kg (249 lb) 09/11/14 112.129 kg (247 lb 3.2 oz) 06/05/14 111.403 kg (245 lb 9.6 oz) GEN: Healthy-appearing in no acute distress. SKIN: No rashes or abnormal lesions except for pitted finger nails. LUNGS: Clear to auscultation bilaterally. COR: Regular, normal S1 and S2 without murmurs ABD: Normal active bowel sounds. Soft and non-distended. No tenderness to deep palpation in all 4 quadrants. No hepatosplenomegaly. RECT: Skin of the anus erythematous with superficial erosions. No clear fissures. No fluctuance or focal tenderness. Good tone. EXT: Trace edema. CBC and LFTs reviewed from 09/12/2014 - see scanned docs. Within nl except for Hgb 13.0. ASSESSMENT AND PLAN: Mr. Rodriguez has worsening symptoms after decreasing his SSZ. We looked into alternative mesalamine therapies. Lialda and Balsalazide are Tier III - so will be more expensive than SSZ. Other 5-ASAs arenot covered. I discussed possibly changing 5-ASA's but he prefers to give SSZ another chance. I think this is very reasonable given that his main problem - lack of general energy - is so non-specific. Will check Cr, lytes including Ca along with CBC and LFTs today given this new complaint of decrease energy. I asked him to increase SSZ up to 3 g (3 tabs bid) daily. The rectal exam was reassuring with only an anal dermatitis. Recommended hypoallergenic creams. If these do not help, a stronger protectant such as Balmex may be helpful. We discussed the following recommendations that were printed out for the patient: # Increase sulfasalazine back up to 3 pills twice per day (3 g). # Will look into alternatives to sulfasalazine and let you know about possibly changing to a different medication. # Check complete blood count, liver tests, electrolytes including calcium, TSH, and creatinine. # Okay to use 1-2 tabs (or teaspoons) Imodium three times per per day before eating. # Recommend wiping with a hypoallergenic cream (like Lubriderm or Eucerin) after bowel movements. # Follow-up with me in the office in 6 months or sooner. Davina Barlow MD Director Operatingfleet director Section of Gastroenter[place] [address] documented in this encounter Plan of Treatment Upcoming Encounters Date Type Department Care Team (Late st Contact Info) Description 08/15/2024 9:00 AM EDT Office [place] [address] Dion Barlow MD [facility] [place] [address] 09/01/2024 11:20 AM EDT Office Visit Dermatology at [place] [address] [place] [address] Gómez Mecrer MD [facility] [place] [address] 09/21/2024 2:45 PM EDT Office Visit [place] [phone] Trung Hoyos MD [facility] [place] [address] Scheduled Orders Name Type Priority Associated Diagnoses Orde r Schedule CBC (with Diff) Lab Routine Ulcerative colitis, other complication Expected: 03/13/2015 (Approximate), Expires: 06/11/2015 documented as of this encounter Procedures Procedure Name Priority Date/Time Associated Diagnosis Comments HEMOGRAM Routine 03/13/2015 2:00 PM EDT Other ulcerative colitis DIFFERENTIAL, AUTOMATED Routine 03/13/2015 2:00 PM EDT Other ulcerative colitis CBC (WITH DIFF) Routine 03/13/2015 2:00 PM EDT Other ulcerative colitis CRP, CARDIAC RISK (HS CRP) Routine 03/13/2015 2:00 PM EDT Other ulcerative colitis TSH Routine 03/13/2015 2:00 PM EDT Lethargy HEPATIC FUNCTION PANEL Routine 5 2:00 PM EDT Other ulcerative colitis COMPREHENSIVE METABOLIC PANEL Routine 03/13/2015 2:00 PM EDT Ulcerative colitis, other complication Lethargy documented in this encounter Results * Differential, Automated (03/13/2015 2:00 PM EDT) Neutrophil % 64.1 % CERNER MILLENNIUM Neutrophil Absolute 4.01 1.50 - 6.30 x10(3)/mcL CERNER MILLENNIUM Lymph % 25.7 % CERNER MILLENNIUM Lymphocytes Abs 1.6 1.0 - 3.6 x10(3)/mcL CERNER MILLENNIUM Monocyte % 6.7 % CERNER MILLENNIUM Monocyte Abs 0.4 0.2 - 1.0 x10(3)/mcL CERNER MILLENNIUM Eos % 2.7 % CERNER MILLENNIUM Eosinophils Abs 0.2 0.0 - 0.5 x10(3)/mcL CERNER MILLENNIUM Basophil % 0.5 % CERNER MILLENNIUM Baso Absolute 0.0 0.0 [...] 0.05 x10(3)/mcL CERNER MILLENNIUM Blood specimen (specimen) 03/13/2015 2:00 PM EDT 03/13/2015 2:14 PM EDT Narrative Resulting Agency Comment Spec In Lab L Karthik Barlow MD HEMATOLOGY ORDERABLE S CERNER MILLENNIUM * (ABNORMAL) Hemogram (03/13/2015 2:00 PM EDT) [facility] White Blood Cell 6.3 4.0 - 10.0 x10(3)/mc L [facility] Red Blood Cell 3.99(L) 4.63 - 6.08 x10(6)/mc L CERNER MILLENNIUM Hemoglobin 13.4(L) 13.7 - 17.5 gm/dL CERNER MILLENNIUM Hematocrit 39.8(L) 40.0 - 51.0 % CERNER MILLENNIUM Mean Cell Volume 99.7(H) 79.0 - 92.0 fL CERNER MILLENNIUM Mean Cell Hemoglobin 33.6(H) 25.6 - 32.2 pg CERNER MILLENNIUM Mean Cell Hemoglobin Concentration 33.7 32.0 - 36.5 gm/dL CERNER MILLENNIUM Platelet 217 145 - 370 x10(3)/mc L CERNER MILLENNIUM RDW Standard Deviation 45.6 35.0 - 46.0 fL CERNER MILLENNIUM RDW coefficient of variation 12.5 10.9 - 14.4 % CERNER MILLENNIUM Mean Platelet Volume 11.6 9.0 - 12.0 fL CERNER MILLENNIUM Blood specimen (specimen) 03/13/2015 2:00 PM EDT 03/13/2015 2:14 PM EDT Narrative Resulting Agency Comment Spec In Lab L Karthik Barlow MD HEMATOLOGY ORDERABLE S [facility] * High Sensitivity CRP (03/13/2015 2:00 PM EDT) [facility] C-Reactive Protein High Sensitivity 2.1 mg/L CERNER MILLENNIUM Comment: Interpretations: 1) For [...] prevention. ??Circulation 2003; [phone] Blood specimen (specimen) 03/13/2015 2:00 PM EDT 03/13/2015 2:14 PM EDT Narrative Resulting Agency Comment Spec In Lab L Karthik Barlow MD CHEMISTRY ORDERABLES Performing Organization Address [facility] de Phone Number CERGIOVANNI ORDOÑEZENNIUM * Hepatic Function Panel (03/13/2015 2:00 PM EDT) Protein, Total 8.0 6.1 - 8.0 gm/dL CERNER MILLENNIUM Albumin 4.6 3.2 - 5.2 gm/dL CERNER MILLENNIUM Aspartate Aminotransferase 19 0 - 39 unit/L CERNER MILLENNIUM Alanine Aminotransferase 27 0 - 55 unit/L CERNER MILLENNIUM Alkaline Phosphatase 58 40 - 120 unit/L CERNER MILLENNIUM Bilirubin, Total 0.4 0.2 - 1.3 mg/dL CERNER MILLENNIUM Bilirubin, Direct 0.1 0.0 - 0.3 mg/dL CERNER MILLENNIUM Blood specimen (specimen) 03/13/2015 2:00 PM EDT 03/13/2015 2:14 PM EDT Narrative Resulting Agency Comment Spec In Lab L Karthik Barlow MD CHEMISTRY ORDERABLES Performing Organization Address [facility] Co de Phone Number DURGA ORDOÑEZENNIUM * (ABNORMAL) TSH (03/13/2015 2:00 PM EDT) Thyroid Stimulating Hormone 5.66(H) 0.27 - 4.20 mcIU/mL CERNER MILLENNIUM Blood specimen (specimen) 03/13/2015 2:00 PM EDT 03/13/2015 2:14 PM EDT Narrative Resulting Agency Comment Spec In Lab L Karthik Barlow MD CHEMISTRY ORDERABLES CERNER TIAGOENNIUM * (ABNORMAL) Comprehensive metabolic panel (non-fasting) (03/13/2015 2:00 PM EDT) [facility] Glucose 125 60 - 199 mg/dL CERNER MILLENNIUM Comment:Diabetes: >=200 mg/d L plus symptoms Blood Urea Nitrogen 21(H) 10 - 20 mg/dL CERNER MILLENNIUM Creatinine 1.05 0.80 - 1.50 mg/dL CERNER MILLENNIUM Comment: Please note that the pediatric reference intervals supplied above were not validated at [facility]. Results from pediatric patients should be interpreted in conjunction to the patient's age, height and muscle mass. Sodium 140 135 - 145 mmol/L CERNER MILLENNIUM Potassium 4.2 3.5 - 5.0 mmol/L CERNER MILLENNIUM Comment: Please note: ??Patients with WBC >100,000 may have falsely elevated Potassium levels. ??For accurate Potassium quantification in these patients send serum separator tube (gold top) for subsequent determinations. ??Contact the Clinical Chemistry Laboratory if there are any questions. Chloride 101 98 - 107 mmol/L CERNER MILLENNIUM Carbon Dioxide 26 22 - 31 mmol/L CERNER MILLENNIUM Anion Gap 13 5 - 15 mmol/L CERNER MILLENNIUM Calcium 9.9 8.5 - 10.5 mg/dL CERNER MILLENNIUM Protein, Total 8.0 6.1 - 8.0 gm/dL CERNER MILLENNIUM Albumin 4.6 3.2 - 5.2 gm/dL CERNER MILLENNIUM Aspartate Aminotransferase 19 0 - 39 unit/L CERNER MILLENNIUM Alanine Aminotransferase 27 0 - 55 unit/L CERNER MILLENNIUM Alkaline Phosphatase 58 40 - 120 unit/L CERNER MILLENNIUM Bilirubin, [...] the following links into your internet browser. [email or web address] [email or web address] Blood specimen (specimen) 03/13/2015 2:00 PM EDT 03/13/2015 2:14 PM EDT Narrative Resulting Agency Comment Spec In Lab L Karthik Barlow MD CHEMISTRY ORDERABLES Performing Organization Address City/State/ZIP Co dc Phone Number [facility] documented in this encounter Visit Diagnoses Diagnosis Ulcerative colitis, other complication Lethargy Other malaise and fatigue Other ulcerative colitis documented in this encounter Care Teams Civil Engineering Project Manager Relationship Specialty Start Date End Date Maximilian Fall MD [address] [place] [address] PCP - General 10/01/11 02/13/21 documented as of this encounter
--- OUTSIDE RECORDS SUMMARY | 2024-06-29 16:06 | XMS_ITS | Encounter Summary ---
Author Organization [facility] Address [facility] [place] [address] Care Team Providers Care Medical Record Administrator Name Role Phone Maximilian Fall MD Primary Care Provider [phone] Encounter Details Date Type Department Care Team (Latest Contact Info) Description 11/06/2015 11:16 AM EST - 11/06/2015 11:17 AM [facility] Hospital Encounter XRay at [address] [place] [address] Dion Barlow MD [facility] [address] Pain in right hip; Bilateral low back [...] 40 mg by mouth daily. lisinopril (PRINIVIL;ZESTRIL) 5 mg Tablet Take 5 [...] 9:00 AM EDT Office [place] [phone] Dion Barlow MD [facility] [place] [address] 09/01/2024 11:20 AM EDT Office Visit Dermatology at [address] [address] Gómez Mercer MD [facility] DR EDD[place] [address] 09/21/2024 2:45 PM EDT Office Visit [place] [address] Trung Hoyos MD [facility] [place] [address] documented as of this encounter Procedures Procedure Name Priority Date/Time Associated Diagnosis Comments XR ABDOMEN FLAT AND UPRIGHT Routine 11/06/2015 11:43 AM EST Pain in right hip Bilateral low back pain, with sciatica presence unspecified Abdominal pain, unspecified abdominal location Chronic ulcerative enterocolitis, unspecified complication documented in this encounter Results * XR Abdomen Flat And Upright (11/06/2015 [...] pattern. No free intra-abdominal air. L Karthik Barlow MD IMG DX ORDERABLES documented in this encounter Visit Diagnoses Diagnosis Pain in right hip Pain in joint, pelvic region and thigh Bilateral low back pain, with sciatica presence unspecified Abdominal pain, unspecified abdominal location Chronic ulcerative enterocolitis, unspecified complication documented in this encounter Care Teams Medical Record Administrator Relationship Specialty Start Date End Date Maximilian Fall MD [address] [place] [address] PCP - General 10/01/11 02/13/21 documented as of this encounter
--- OUTSIDE RECORDS SUMMARY | 2024-06-29 16:06 | XMS_ITS | Encounter Summary ---
Author Organization [facility] [place] [address] Care Team Providers Care Turkey Roll Maker Name Role Phone Maximilian Fall MD Primary Care Provider [phone] Encounter Details Date Type Department Care Team (Late st Contact Info) Description 09/11/2014 10:00 AM EDT Follow-[place] [address] Dion Barlow MD [facility] [place] [address] Ulcerative colitis, other complication (Primary Dx) Discharge Disposition: Home Social History [...] Sign Reading Time Taken Comments Blood Pressure 146/78 09/11/2014 9:50 AM EDT Pulse 76 09/11/2014 9:50 AM EDT Temperature - - Respiratory Rate - - Oxygen Saturation - - Inhaled Oxygen Concentration - - Weight 112.1 kg (247 lb 3.2 oz) 09/11/2014 9:50 AM EDT Height - - Body Mass Index 30.09 06/05/2014 9:24 AM EDT documented in this encounter Patient Instructions * Patient Instructions* Dion Barlow MD - 09/11/2014 10:44 AM EDT # Continue on sulfasalazine as you have been. # Resume the enemas three times per week for now for at least 3 weeks. Once you feel better, can decrease to two times per week. # If there has not been a complete blood count, creatinine, and LFTs within the last 6 months, would recommend checking these. Will call Dr. Fall's office to see if these have been checked. # Continue imodium one tsp prior to each meal. # Follow-up with me in the office in 6 months or sooner. documented in this encounter Progress Notes * Dion Barlow MD - 09/11/2014 10:56 AM EDT Patient Active Problem List Diagnosis ??? Ulcerative colitis Overview Note: ?? Colonoscopy 04/08/10 (Dr. Gomes [facility]) - inflammation only within the rectum and sigmoid; extent of the exam was to the hepatic flexure; biopsies proximal to the sigmoid nl ?? Repeat exam 11/27/11 ([facility] mildly active colitis in the sigmoid colon [...] ulcerative proctosigmoiditis. I last saw him in June of this year for his colonoscopy. I was please to see that his colitis was very mild. He continues on sulfasalazine and has been taking for the last 3 months 4 pills three times per day(total of 6 g). He stopped Rowasa enemas about 2-3 weeks ago because he felt that he did not need them. He had been feeling well with 2 formed stools per day. Coincidentally around that time, he wentout to eat and had red meat for the first time in months. Within hours, he had abd cramps and multiple loose stools lasting about one day. Since then, he has had urgency and 2-3 loose stools per day.He continue imodium 5 cc prior to meals bid-tid. There has been no apthous stomatitis, episcleritis, [...] chest pain. There is no dysuria. Has nocturia. Has chronic arthralgias in the knees, hips, back. There is no recent skin rash. Thepatient denies psychiatric problems. There are no neurologic symptoms or easy bruising or bleeding. PHYSICAL EXAMINATION: Filed Vitals: 09/11/14 0950 BP: 146/78 Pulse: 76 Wt Readings from Last 3 Encounters: 09/11/14 112.129 kg (247 lb 3.2 oz) 06/05/14 111.403 kg (245 lb 9.6 oz) 03/06/14 112.946 kg (249 lb) GEN: Healthy-appearing in no acute distress. SKIN: No rashes or abnormal lesions except for pitted finger nails. LUNGS: Clear to auscultation bilaterally. COR: Regular, normal S1 and S2 without murmurs ABD: Normal active bowel sounds. Soft and non-distended. No tenderness to deep palpation in all 4 quadrants. No hepatosplenomegaly. ASSESSMENT AND PLAN: I was very pleased to see that Mr. Rodriguez proctocolitis was mild at worst at his last exam. We had discussed escalating therapy but will not at this point. Currently, I wonder if his worsening of symptoms - while perhaps diet related that day he went out to eat - may be related to stopping topical therapy around the same time. I encouraged him to resumes Rowasa enemas. He is on a high dose of SSZ but seems to be tolerating it well. I do not have recent labs (LFTs, creat, CBC), but I am presuming they have been checked with Dr. Fall. We will call his office to see if there are some within the last 6 months. We discussed the following recommendations that were printed out for the patient: # Continue on sulfasalazine as you have been. # Resume the enemas three times per week for now for at least 3 weeks. Once you feel better, can decrease to two times per week. # If there has not been a complete blood count, creatinine, and LFTs within the last 6 months, would recommend checking these. Will call Dr. Fall's office to see if these have been checked. # Continue imodium one tsp prior to each meal. # Follow-up with me in the office in 6 months or sooner. Davina Barlow MD Tetryl Dissolver Operatordip stand loader Section of Gastroenterology [place] [address] documented in this encounter Plan of Treatment Upcoming Encounters Date Type Department Care Team (Late st Contact Info) Description 08/15/2024 9:00 AM EDT Office Visit Gastroenterology at [place] [phone] Dion Barlow MD [facility] [place] [address] 09/01/2024 11:20 AM EDT Office Visit Dermatology at [place] [address] [place] [address] Gómez Mercer MD [facility] [address] EDD[place] [address] 09/21/2024 2:45 PM EDT Office Visit Pain and Spine Center at [place] [phone] Trung Hoyos MD [facility] [place] [address] documented as of this encounter Visit Diagnoses Diagnosis Ulcerative colitis, other complication- Primary documented in this encounter Care Teams Turkey Roll Maker Relationship Specialty Start Date End Date Maximilian Fall MD [address] [place] [address] PCP - General 10/01/11 02/13/21 documented as of this encounter
--- OUTSIDE RECORDS SUMMARY | 2024-06-29 16:06 | XMS_ITS | Encounter Summary ---
Author Organization [facility] [place] [address] Care Team Providers Care Machine Operator Name Role Phone More Naylor MD Primary Care Provider [phone] Reason for Visit * Reason Comments Follow-up Encounter Details Date Type Department Care Team (Late st Contact Info) Description 11/01/2013 2:00 PM EST [place] [phone] Dion Barlow MD [facility] [place] [address] Ulcerative colitis (Primary Dx) Discharge Disposition: Home Social [...] Sign Reading Time Taken Comments Blood Pressure 135/76 11/01/2013 1:53 PM EST Pulse 85 11/01/2013 1:53 PM EST Temperature - - Respiratory Rate - - Oxygen Saturation - - Inhaled Oxygen Concentration - - Weight - - Height - - Body Mass Index - - documented in this encounter Patient Instructions * Patient Instructions* Dion Barlow MD - 11/01/2013 3:12 PM EST 1. Today will check blood tests - liver tests, complete blood count, and kidney function. 2. Add back Rowasa enemas at night. 3. If no improvement within 7 days, please call. We would check stool studies, consider Uceris or prednisone, and consider starting azathioprine. 4. Continue sulfasalazine 2 g (4 pills) twice per day. 5. Follow-up in the office in about 4 months. documented in this encounter Progress Notes * Dion Barlow MD - 11/01/2013 3:01 PM EST Patient Active Problem List Diagnoses ??? Ulcerative colitis Colonoscopy 04/08/10 (Dr. 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 I have not seen him since last August year. Since last visit, his unfortunately . He continues to take Suflasalazine 2 g PO bid. At 3 g PO bid, his headaches worsened. He stopped taking Rowasa about two weeks ago when it ran out. He is having up to 6-7 loose watery stools per day. About 1-2 months ago he saw some bright red blood. It was a small amount and has not recurred. There is also intermittent abdominal cramping pain. No weight loss. There [...] oz) Lab Results Component Value Date WBC 6.2 09/20/2012 RBC 4.07* 09/20/2012 HGB 13.5* 09/20/2012 HCT 40.5 09/20/2012 MCV 99.5* 09/20/2012 MCH 33.2* 09/20/2012 MCHC 33.3 09/20/2012 PLATELET 227 09/20/2012 RDWCV 12.5 09/20/2012 Chemistry Component Value Date/Time NA 139 09/20/2012 1117 K 3.9 09/20/2012 1117 CL 103 09/20/2012 1117 CO2 25 09/20/2012 1117 BUN 13 09/20/2012 1117 CREATININE 0.81 09/20/2012 1117 Component Value Date/Time CALCIUM 9.6 09/20/2012 1117 ALKPHOS 59 09/20/2012 1117 AST 19 09/20/2012 1117 ALT 26 09/20/2012 1117 BILITOT 0.4 09/20/2012 1117 Lab Results Component Value Date CRP 3.7 09/20/2012 Assessment and Plan: Mr. Rodriguez has left-sided ulcerative colitis with persistently active qcma-ls-mteutxgr symptom - now worse off of his Rowasa. We discussed adding back the Rowasa. If this does not help, then I think we should revisit prednisone - or possible Uceris - with the addition of immunomodulators. Since he has responded to enemas in the past, he has elected to continue with these and avoid the immunomodulators. He will call in 7 days. If there is no improvement, we will need to check C. Diff, culture, and giardia and then consider prednisone. We discussed the following recommendations that were printed out for the patient: 1. Today will check blood tests - liver tests, complete blood count, and kidney function. 2. Add back Rowasa enemas at night. 3. If no improvement within 7 days, please call. We would check stool studies, consider Uceris or prednisone, and consider starting azathioprine. 4. Continue sulfasalazine 2 g (4 pills) twice per day. 5. Follow-up in the office in about 4 months. CC: MORE NAYLOR MD [address] [place] [address] documented in this encounter Plan of Treatment Upcoming Encounters Date Type Department Care Team (Late st Contact Info) Description 08/15/2024 9:00 AM EDT Office [place] [address] Dion Barlow MD [facility] [place] [address] 09/01/2024 11:20 AM EDT Office Visit Dermatology at [facility] [address] [place] [address] Gómez Mercer MD [facility] DR EDD[place] [address] 09/21/2024 2:45 PM EDT Office Visit Pain and Sp[facility] at [facility] [place] [phone] Trung Hoyos MD [facility] [place] [address] documented as of this encounter Procedures Procedure Name Priority Date/Time Associated Diagnosis Comments DIFFERENTIAL, AUTOMATED Routine 11/01/2013 3:39 PM EST CBC (WITH DIFF) Routine 11/01/2013 3:39 PM EST Ulcerative colitis COMPREHENSIVE METABOLIC PANEL Routine 11/01/2013 3:39 PM EST Ulcerative colitis documented in this encounter Results * Differential, Automated (11/01/2013 3:39 PM EST) Neutrophil % 65.6 34.0 - 71.0 % CERNER MILLENNIUM Neutrophil Absolute 4.25 1.50 - 6.30 x10(3)/mcL CERNER MILLENNIUM Lymph % 26.0 19.0 - 53.0 % CERNER MILLENNIUM Lymphocytes Abs 1.7 1.0 - 3.6 x10(3)/mcL CERNER MILLENNIUM Monocyte % 6.2 4.0 - 13.0 % CERNER MILLENNIUM Monocyte Abs 0.4 0.2 - 1.0 x10(3)/mcL CERNER MILLENNIUM Eos % 1.4 0.0 - 7.0 % CERNER MILLENNIUM Eosinophils [...] 0.05 x10(3)/mcL CERNER MILLENNIUM Blood specimen (specimen) 11/01/2013 3:39 PM EST 11/01/2013 3:44 PM EST L Karthik Barlow MD HEMATOLOGY ORDERABLE S CERNER MILLENNIUM * (ABNORMAL) Comprehensive metabolic panel (non-fasting) (11/01/2013 3:39 PM EST) Glucose 110 60 - 199 mg/dL CERNER MILLENNIUM Comment:Diabetes: >=200 mg/d L plus symptoms Blood Urea Nitrogen 11 10 - 20 mg/dL CERNER MILLENNIUM Creatinine 0.91 0.80 - 1.50 mg/dL CERNER MILLENNIUM Comment: Please note that the pediatric reference intervals supplied above were not validated at [facility]. Results from pediatric patients should be interpreted in conjunction to the patient's age, height and muscle mass. Sodium 141 135 - 145 mmol/L CERNER MILLENNIUM Potassium [...] - 10.5 mg/dL CERNER MILLENNIUM Protein, Total 8.4(H) 6.4 - 8.3 gm/dL CERNER MILLENNIUM Albumin 4.6 3.2 - 5.2 gm/dL CERNER MILLENNIUM Aspartate Aminotransferase 17 0 - 39 unit/L CERNER MILLENNIUM Alanine Aminotransferase 23 0 - 55 unit/L CERNER MILLENNIUM Alkaline Phosphatase 55 40 - 120 unit/L CERNER MILLENNIUM Bilirubin, [...] the following links into your internet browser. http://www.nkdep.nih.gov/lab-evaluation.shtml http://www.kidney.org/professionals/ Blood specimen (specimen) 11/01/2013 3:39 PM EST 11/01/2013 3:44 PM EST Narrative Resulting Agency Comment Spec In Lab L aKrthik Barlow MD CHEMISTRY ORDERABLES [facility] YOLY * (ABNORMAL) CBC (with Diff) (11/01/2013 3:39 PM EST) White Blood Cell 6.5 4.0 - 10.0 x10(3)/mc L CERNER MILLENNIUM Red Blood Cell 4.41(L) 4.63 - 6.08 x10(6)/mc L CERNER MILLENNIUM Hemoglobin 14.6 13.7 - 17.5 gm/dL CERNER MILLENNIUM Hematocrit 43.9 40.0 - 51.0 % CERNER MILLENNIUM Mean Cell Volume 99.5(H) 79.0 - 92.0 fL CERNER MILLENNIUM Mean Cell Hemoglobin 33.1(H) 25.6 - 32.2 pg CERNER MILLENNIUM Mean Cell Hemoglobin Concentration 33.3 32.0 - 36.5 gm/dL CERNER MILLENNIUM Platelet 202 145 - 370 x10(3)/mc L DURGA ORDOÑEZENNIUM RDW Standard Deviation 46.4(H) 35.0 - 46.0 fL DURGA ORDOÑEZENNIUM RDW coefficient of variation 12.7 10.9 - 14.4 % DURGA ORDOÑEZENNIUM Mean Platelet Volume 11.7 9.0 - 12.0 fL DURGA ORDOÑEZENNIUM Blood specimen (specimen) 11/01/2013 3:39 PM EST 11/01/2013 3:44 PM EST Narrative Resulting Agency Comment Spec In Lab L Karthik Barlow MD HEMATOLOGY ORDERABLE S [facility] FREDERICK documented in this encounter Visit Diagnoses Diagnosis Ulcerative colitis- Primary Ulcerative colitis, unspecified documented in this encounter Care Teams Machine Operator Relationship Specialty Start Date End Date More Naylor MD [address] [place] [address] PCP - General 10/01/11 02/13/21 documented as of this encounter
--- OUTSIDE RECORDS SUMMARY | 2024-06-29 16:06 | XMS_ITS | Encounter Summary ---
Author Organization [facility] [place] [address] Care Team Providers Care Manager Delivery Name Role Phone Maximilian Fall MD Primary Care Provider [phone] Encounter Details Date Type Department Care Team (Late st Contact Info) Description 11/06/2015 Orders Only [place] [phone] Marcelle Weinberg, [place]APLAIN RESIDENT [facility] [place] [address] Ulcerative colitis without complications Social History Tobacco Use [...] 9:00 AM EDT Office Visit [place] [phone] Dion Barlow MD [facility] [address] 09/01/2024 11:20 AM EDT Office Visit Dermatology at [facility] [address] [place] [address] Gómez Mercer MD [facility] [address] [place] [address] 09/21/2024 2:45 PM EDT Office Visit Pain and Spine Center at [facility] [place] [address] Trung Hoyos MD [facility] [place] [address] documented as of this encounter Visit Diagnoses Diagnosis Ulcerative colitis without complications Ulcerative colitis, unspecified documented in this encounter Care Teams Manager Delivery Relationship Specialty Start Date End Date Maximilian Fall MD [address] [place] [address] PCP - General 10/01/11 02/13/21 documented as of this encounter
--- OUTSIDE RECORDS SUMMARY | 2024-06-29 16:07 | XMS_ITS | Encounter Summary ---
Author Organization [facility] [place] [address] Care Team Providers Care Diesel Engine Erector Name Role Phone Maximilian Fall MD Primary Care Provider [phone] Reason for Visit * Reason Onset Date Comments Research 02/20/2012 discuss [facility] Encounter Details Date Type Department Care Team (Late st Contact Info) Description 02/20/2012 Telephone Gastroenterology at [facility] [place] [phone] Mica Gore, [facility] [place] [address] Research (discuss [facility]) Social History Tobacco Use Types Packs/Day Years [...] encounter Miscellaneous Notes * Telephone Encounter - Mica Gore RN - 02/20/2012 8:23 AM EDT Title: Randomized, double blind, prospective trial investigating the efficacy of Methotrexate in induction and maintenance of steroid free remission in ulcerative colitis. PI: Dr. Davina Barlow Call placed to Mr. Rodriguez per request of Dr. Barlow to discuss [facility]. Briefly discussed study and treatment. Mr. Rodriguez says that he is starting a new job and is unable to determine when he will be available at this time. He is currently unable to commit to visits every 2-3 weeks. Mr. Rodriguez says that he will be coming in on April 21 for an appointment. He says that he should know his schedule better at that time and would like to further discuss the study. I informed Mr. Rodriguez that I would seehim April 21. I asked him to call before than should he have any questions, or should he be interested in starting the study earlier. documented in this encounter Plan of Treatment Upcoming Encounters Date Type Department Care Team (Late st Contact Info) Description 08/15/2024 9:00 AM EDT Office [place] [address] Dion Barlow MD [facility] [place] [address] 09/01/2024 11:20 AM EDT Office Visit Dermatology at [address] [address] Gómez Mercer MD [facility] DR EDD[place] [address] 09/21/2024 2:45 PM EDT Office Visit [place] [address] Trung Hoyos MD [facility] [place] [address] documented as of this encounter Visit Diagnoses Not on filedocumented in this encounter Care Teams Diesel Engine Erector Relationship Specialty Start Date End Date Maximilian Fall MD [address] [place] [address] PCP - General 10/01/11 02/13/21 documented as of this encounter
--- OUTSIDE RECORDS SUMMARY | 2024-06-29 16:07 | XMS_ITS | Encounter Summary ---
Author Organization [facility] [place] [address] Care Team Providers Care Tour Escort Name Role Phone Maximilian Fall MD Primary Care Provider [phone] Encounter Details Date Type Department Care Team (Late st Contact Info) Description 03/16/2012 2:30 PM EDT - 03/16/2012 3:30 PM EDT [place] [address] Enrico Tellez MD [facility] [place] [address] FLEXIBLE SIGMOIDOSCOPY (WRVU 0.84) Social History Tobacco Use Types Packs/Day Years [...] Sign Reading Time Taken Comments Blood Pressure 143/88 03/16/2012 2:01 PM EDT Pulse 86 03/16/2012 2:01 PM EDT Temperature - - Respiratory Rate 17 03/16/2012 2:01 PM EDT Oxygen Saturation 93% 03/16/2012 2:01 PM EDT Inhaled Oxygen Concentration - - Weight - - Height - - Body Mass Index - - documented in this encounter Discharge Instructions * Discharge Instructions* Khai Colvin RN - 03/16/2012 2:07 PM EDT You have received medication during your procedure, which affects judgement and reaction time. Do not drive, operate machinery, drink alcoholic beverages, or make important decisions for 24 hours. Be careful on stairs, as you may be unsteady on your feet. You may eat a regular diet as tollerated. IV site -- slight redness, or tenderness is normal, you can use a warm compress. If tenderness and redness increases or foul drainage occurs, please contact your M. D. Please call [phone] BEFORE 5PM with any questions or concerns, AFTER 5PM call [phone] andask to speak to the Rn Complex Care meter maintenance person. * Patient Instructions* Enrico Tellez MD - 03/16/2012 1:27 PM EDT Please see Recommendations in the Provation procedure report which is documented in the procedural note in E-[facility]. * Attachments The following attachments cannot be sent through Care Everywhere. * SIGMOIDOSCOPY: WHAT TO EXPECT AT HOME (EMIRATI) documented in this encounter Medications at Time of Discharge Medication Sig Dispensed Refills Start Date End Date omeprazole (PRILOSEC) 20 mg capsule Take 40 mg by mouth daily. predniSONE (DELTASONE) 10 mg tabletIndications:Ul cerative colitis Take 2 tablets by mouth daily. 120 tablet 0 03/16/2012 11/01/2013 polyethylene glycol-electrolytes (PEG 3350-ELECTROLYTES) 420 g solutionIndications: Ulcerative colitis Take 2,000 mLs by mouth. Please follow instructions per Dr's office for sigmoidoscopy prep 4000 mL 0 03/15/2012 03/16/2012 acetaminophen (TYLENOL) 500 mg tablet Take 500 mg by mouth every 6 hours as needed. 03/06/2014 MULTI-VITAMIN ORAL Take by mouth daily. 0 06/05/2014 ascorbic acid (VITAMIN C) 500 mg tablet Take 500 mg by mouth daily. 03/06/2014 mesalamine (ROWASA) 4 gram/[address] rect[address] as needed. 04/02/2012 glyBURIDE (DIABETA) 5 mg tablet Take 5 mg by mouth daily. 03/06/2014 fluticasone (FLOVENT) 110 mcg/Actuation inhaler Inhale 2 puffs into the lungs 2 times daily. 05/03/2018 folic acid (FOLVITE) 1 mg tabletIndications:Ul cerative colitis Take 1 tablet by mouth daily. 120 tablet 6 10/01/2011 11/22/2012 propranolol (INDERAL LA) 80 mg 24 hr capsule 80mg, PO, Once daily 01/15/2007 012 metFORMIN (GLUCOPHAGE) 500 mg tablet 500mg, PO, Twice daily 01/15/200705/11 bacitracin 500 unit/g ointment 01/15/2007 03/06/2014 documented as of this encounter H&P Notes * Enrico Tellez MD - 03/16/2012 1:26 PM EDT Gastroenterology and Hepatology Pre-Procedure History and Physical Exam Procedure: flexi Indication: uc, prior to entry mtx study Patient Active Problem List Diagnoses Code ??? Ulcerative colitis 556.9J ??? Diabetes mellitus 250.00A ??? Hearing loss 389.9AB ??? GERD (gastroesophageal reflux disease) 530.81S ??? Hydrocele 603.9F ??? Asthma 493.90AE EXAM: HEENT: Airway examined, oropharynx clear LUNGS: Clear to auscultation HEART: Regular rate and rhythm, normal S1, S2 ABDOMEN: Normal bowel sounds, soft, non tender, non distended, A/P Proceed with flexi. Risks and benefits of the procedure explained to the patient. Consent signed. documented in this encounter Miscellaneous Notes * Miscellaneous - Provider, Scanning - 03/17/2012 4:39 AM EDT * Miscellaneous - Provider, Scanning - 03/16/2012 2:02 PM EDT documented in this encounter Plan of Treatment Upcoming Encounters Date Type Department Care Team (Late st Contact Info) Description 08/15/2024 9:00 AM EDT Office [place] [address] Dion Barlow MD [facility] [place] [address] 09/01/2024 11:20 AM EDT Office Visit Dermatology at [facility] [address] [place] [address] Gómez Mercer MD [facility] DR EDD[place] [address] 09/21/2024 2:45 PM EDT Office Visit [place] [address] Trung Hoyos MD [facility] [place] [address] documented as of this encounter Procedures Procedure Name Priority Date/Time Associated Diagnosis Comments SURGICAL PATHOLOGY REPORT Routine 03/16/2012 4:52 PM EDT SPECIMEN TO PATHOLOGY Routine 03/16/2012 2:09 PM EDT FLEXIBLE SIGMOIDOSCOPY (WRVU 0.84) 03/16/2012 1:27 PM EDT study patient POCT GLUCOSE Routine 03/16/2012 1:16 PM EDT documented in this encounter Results * SURGICAL PATHOLOGY REPORT (03/16/2012 4:52 PM EDT) Surgical Pathology Report ? [facility] ? Provider: ?? ENRICO TELLEZ ?Pt. Name: ?? NAYA RODRIGUEZ ? Acc #: ?[id number] ?Pt. ? Col Date: ?? 03/16/2012 ? /Sex: ?1950,(61 years),Male ? Rec Date: ?? 03/16/2012 ? LOC: ?4T ? SURGICAL PATHOLOGY ? ---Pathologic Diagnosis--- ? Endoscopic biopsy - Mildly to moderately active chronic proctitis, ? characterized by crypt distortion and full-thickness lymphoplasmacytosis ? suggestive of idiopathic inflammatory bowel disease. No dysplasia is seen. ? CR-PX ? 03/17/12 ? AAS ? 03/17/12 Verified by: ? Joana Soler MD ? Pathologist ? (Electronic Signature) ? The attending pathologist whose signature appears on this report has ? reviewed all diagnostic slides and has edited the gross and/or ? microscopic portion of the report in rendering the final pathologic ? diagnosis. ? ---Microscopic Description--- ? Slides reviewed, microscopic description not recorded. ? ---Gross Description--- ? Labeled/Fixative: ? Rectosigmoid, formalin. ? Qty/Size/Weight: ?Six, ranging from 0.2 cm to 0.5 cm in ? greatest dimension. ? Tissue Description: ?? Soft, stephen tissues. ? Sections/Processing: ??(T2) ??vms/SNS ? ---Clinical Information--- ? Specimen Submitted: ? A - Rectosigmoid ? Clinical History/Diagnosis: ? Patient with mild proctitis [facility] 03/16/2012 4:52 PM EDT Enrico Tellez MD PATHOLOGY/CYTOLOGY O CEE Performing Organization Address [facility] Co de Phone Number [facility] * Specimen to Pathology (surgical or derm) (03/16/2012 2:09 PM EDT) AP Specimen 03/16/2012 2:09 PM EDT 03/16/2012 2:09 PM EDT Narrative DURGA YOLY - 03/16/2012 2:09 PM EDT Specimen requisition ordered. ??Separate Pathology report to follow Enrico Tellez MD PATHOLOGY/CYTOLOGY O CEE Performing Organization Address [facility] Co de Phone Number [facility] * POCT GLUCOSE LAB USE ONLY (03/16/2012 1:16 PM EDT) Glucose, POC 116 60 - 199 mg/dL [facility] Comment: Supplemental ranges: <110 mg/dL before meals <200 mg/dL all other times of the day Blood specimen (specimen) 03/16/2012 1:16 PM EDT 03/16/2012 1:16 PM EDT Enrico Tellez MD POINT OF CARE TEST O CEE Performing Organization Address [facility] Co de Phone Number [facility] documented in this encounter Visit Diagnoses Not on filedocumented in this encounter Administered Medications Inactive Administered Medications - up to 3 most recent administrations Medication Order MAR Action Action Date Dose Rate Site fentaNYL 50mcg/mL injection ONCE PRN, Starting on Thu03/16/12 at 1334, Until Thu03/16/12 at 1854, Pain, Intra-Operative (Intra-Procedure), Routine Given 03/16/2012 1:37 PM EDT 50 mcg Right Arm Given 03/16/2012 1:34 PM EDT 50 mcg Ri ght Arm midazolam (VERSED) injection ONCE PRN, Starting on Thu03/16/12 at 1334, Until Thu03/16/12 at 1854, Sleep, Intra-Operative (Intra-Procedure), Routine Given 03/16/2012 1:48 PM EDT 1 mg Right Arm Given 03/16/2012 1:37 PM EDT 1 mg Ri ght Arm Given 03/16/2012 1:34 PM EDT 1 mg Ri ght Arm sodium chloride 0.9% infusion 30 mL/hr, Intravenous, CONTINUOUS, Starting on 03/16/12 at 1315, Until 03/16/12 at 1854, Endoscopy (Day of Procedure) New Bag 03/16/2012 1:00 PM EDT 30 mL/hr 30 mL/hr documented in this encounter Active and Recently Administered Medications Times are shown in EDT. Continuous Medication Order 03/14/2012 03/15/2012 03/16/2012 sodium chloride 0.9% infusion (CANCELED) 30 mL/hr, Intravenous, CONTINUOUS, Starting on 03/16/12 at 1315, Until 03/16/12 at 1854, Endoscopy (Day of Procedure) 1300 (New Bag - Prov ider: Megan Jimenez RN) PRN Medication Order 03/14/2012 03/15/2012 03/16/2012 fentaNYL 50mcg/mL injection (CANCELED) ONCE PRN, Starting on 03/16/12 at 1334, Until 03/16/12 at 1854, Pain, Intra-Operative (Intra-Procedure), Routine 1334 (Given - Provid er: April Archibald RN)1337 (Given - Provider: April Archibald RN) midazolam (VERSED) injection (CANCELED) ONCE PRN, Starting on 03/16/12 at 1334, Until 03/16/12 at 1854, Sleep, Intra-Operative (Intra-Procedure), Routine 1334 (Given - Provid er: April Archibald RN)1337 (Given - Provider: April Archibald RN)1348 (Given - Provider: April Archibald RN) documented in this encounter Care Teams Tour Escort Relationship Specialty Start Date End Date Maximilian Fall MD [address] [place] [address] PCP - General 10/01/11 02/13/21 documented as of this encounter
--- OUTSIDE RECORDS SUMMARY | 2024-06-29 16:07 | XMS_ITS | Encounter Summary ---
Author Organization [facility] [place] [address] Care Team Providers Care Digital Assistant Name Role Phone More Naylor MD Primary Care Provider [phone] Reason for Visit * Reason Comments Follow-up Encounter Details Date Type Department Care Team (Late st Contact Info) Description 11/05/2011 2:00 PM EST Follow-Up [place] [address] Dion Barlow MD [facility] [place] [address] Ulcerative colitis (Primary Dx) Discharge Disposition: Home Social History Tobacco Use Types Packs/Day Years Used Date Smoking Tobacco: Former Cigarettes 4 30 1 12/01/1961 - 10/01/1992 Sex and Gender Information Value Date Recorded Sex Assigned at Male 12/07/2023 7:54 AM EST Gender Identity Not on file Sexual Orientation Not on file documented as of this encounter Last Filed Vital Signs Vital Sign Reading Time Taken Comments Blood Pressure 140/82 11/05/2011 1:57 PM EST Pulse 68 11/05/2011 1:57 PM EST Temperature - - Respiratory Rate - - Oxygen Saturation - - Inhaled Oxygen Concentration - - Weight 110.5 kg (243 lb 9.6 oz) 11/05/2011 1:57 PM EST Height 193 cm (6' 4) 11/05/2011 1:57 PM EST Body Mass Index 29.65 11/05/2011 1:57 PM EST documented in this encounter Patient Instructions * Patient Instructions* Dion Barlow MD - 11/05/2011 2:42 PM EST Images from the original note were not included. 1. Continue sulfasalazine 2. Continue Rowasa enemas every other night 3. Okay to add back aspirin 81 mg daily but continue to avoid naproxen and other NSAIDs 4. Arrange for colonoscopy. 5. Labs today. 6. Follow-up at the colonoscopy and in the office within 12 weeks. HALF LYTELY BOWEL PREPARATION Please follow these instructions for your preparation, and disregard the instruction you received from the pharmacy. We have enclosed Frequently Asked Questions to answer questions you may have about this preparation. Please see the enclosed General Information on Your Colonoscopy for medication information. PURCHASE: ?? ONE (1) Nulytely prescription or generic (prescription enclosed) - this prescription makes ONE GALLON of Bowel Preparation - you will drink ONLY 1/2 of the Bowel Preparation; please disregard the pharmacy instructions. ?? FOUR (4) bisacodyl tablets - these are NOT with your prescription, but can be purchased at the pharmacy over the counter (OTC). GENERAL INSTRUCTIONS: ?? If you recently had surgery, or if you have any heart problems, talk to your doctor before starting the preparation. ?? If you have had this preparation in the past, and it has not worked well, let us know before starting the preparation at this time. Please call [phone] to let us know that you cannot take thepreparation. ?? Please make a plan to bring someone to drive you home after the exam, and plan to not drive for 24 hours after your procedure. Due to the sedation given during the procedure, we cannot perform your procedure, unless you have an adult who can pick you up in the Endoscopy Center after your procedure, and escort you home. In the interest of patient safety, there can be no exceptions to this. Please, no alternative forms of transportation like cabs or buses. THE DAY BEFORE THE COLONOSCOPY: ?? Follow these instructions to ensure a safer, and more thorough exam. Do NOT eat or drink anything purple, red, or blue. ?? The day before your colonoscopy, you will have CLEAR LIQUIDS only. Clear Liquid Diet - you may have: ?? Broth, bouillon ?? Tea or coffee (you may have sugar, but no dairy or non-dairy creamer) ?? Apple juice, white grape juice, white cranberry juice ?? Lolis patti, Sprite, Seven-up, Leesa Mist HALF LYTELY BOWEL PREPARATION (con't) ?? Water ?? Jell-O without any fruit or vegetables added; no purple, red, or blue Jell-O ?? Popsicles; no purple, red, or blue, Life Savers THE EVENING BEFORE THE COLONOSCOPY: 2:00pm - Take all 4 bisacodyl tablets. Continue drinking clear liquids. Mix the preparation to makeone gallon of liquid; leave it at room temperature so it is easier to drink. Remember that you will be drinking only ONE HALF (1/2) of the gallon of preparation 6:00pm - Start drinking the cleansing preparation, and continue to drink other clear liquids. 10:00pm - Finish all but 2 3 glasses so you can sleep. Save 2 - 3 glasses to dink the morning of your exam. THE DAY OF YOUR COLONOSCOPY ?? Do not eat breakfast. Please finish drinking the last 2 or 3 glasses of your colonoscopy preparation. You may have clear liquids until one hour before you arrive at the Endoscopy Center (). ?? You will need to arrive ONE HOUR before your procedure time to help you prepare for your procedure; please see your letter for exact arrival time. ?? Please plan to be at [facility] for about 3 hours; please see your letter for estimated procedure and discharge times. If you have read the information thoroughly, and still have questions about what you have read, please call [phone] between the hours of 7:00am - 7:00pm, Thursday - Thursday and a nurse will assist you. If you have an urgent matter after hours, please call [phone], and ask to speak to the Gastroenterology Fellow percussion welding machine operator. If you need to reschedule your colonoscopy, please call [phone]. We do have a high volume of patients for this exam, so please give at least 72 hours notice for routine rescheduling. HALF LYTELY BOWEL PREPARATION (con't) We do our best to be on time, however sometimes there are emergencies. While this doesn't happen very often, you may have a wait time. We want each and every patient to get the excellent care our Endoscopy Center provides, therefore we thank you in advance for your patience if your procedure is unexpectedly delayed. Please make a plan to bring someone to drive you home after the exam, and plan to not drive for 24 hours after your procedure. Due to the sedation given during the procedure, we cannot perform your procedure, unless you have an adult who can pick you up in the Endoscopy Center, after your procedureand escort you home. In the interest of patient safety, there can be no exceptions to this. Please,no alternative forms of transportation like cabs or buses. HELPFUL HINTS ?? You may flavor the preparation with Crystal Light;Crystal Light is a powered drink mix you buy in your grocery store (pink lemonade is a popular choice). Most patients prefer Crystal Light to the flavor packets that come with the preparation. You may flavor individual glasses of the preparation with different flavors (no purple, red, or blue) of Crystal Light, but do not add Crystal Light to the entire gallon jug of preparation, or you will have only one flavor for the entire preparation. ?? Drink one glass of the preparation every 10 - 15 minutes. If you feel too full, stop for 20 - 30minutes, and then continue drinking. You may find it helpful to drink through a straw. ?? Continue to drink lots of clear liquids while you are drinking the preparation. ?? By 10:00pm you should be passing yellow fluid when you move your bowels. If you are not clear inthe morning, please call in the morning before you leave home for further instructions. PLEASE NOTE: Your bowel movements will never be totally clear because of bile, and other digestive juices in your intestine. After your preparation, you should have yellow or greenish-yellow liquid that you are excreting. ?? You do need to drink 2 - 3 glasses of preparation the morning of, but please remember that these2 - 3 glasses are considered part of your 1/2 gallon. GENERAL INFORMATION ON YOUR COLONOSCOPY What is a Colonoscopy? A colonoscopy is a procedure where a specially trained doctor uses a thin, flexible tube to examinethe entire large intestine. As the tube is advanced through the intestine, a video sensor in the tube transmits images to a television monitor. You should be able to go back to your usual activities after 24 hours, although occasionally people may take a bit longer. Why does your doctor want you to have a colonoscopy? ?? Colon cancer is the 2nd leading cause of from cancer in the [place] today. ?? The majority of people who get colon caner have no family history or symptoms, and are over 50. ?? A colonoscopy is the most accurate test for detection of polyps, and colorectal cancer, drastically reduce the chances of developing cancer. ?? If you do not have polyps, you may be able to go 10 years before your next colonoscopy. ?? A colonoscopy screens the entire colon in most cases. Colon cancer is found in all segments of the colon. Are there risks with a colonoscopy? A colonoscopy is a common procedure and complications are extremely unlikely, however, any procedure involves some risk. The risk for a colonoscopy includes:the device perforating (poking a hole in) the lining of the colon; bleeding in the large intestine; having a reaction to the medication used in the procedure; GENERAL INFORMATION ON YOUR COLONOSCOPY (con't) or having the provider miss seeing a cancerous growth. Such complications may require a blood transfusion and/or surgery. Although complications are extremely rare with a colonoscopy, you will be given a consent form to show that you understand the risks involved. HOW TO PREPARE FOR YOUR COLONOSCOPY After you have scheduled your colonoscopy: ?? Check your insurance benefits. Not all insurances cover screening colonoscopies. If you are under 50 years of age and/or have a PPO insurance, this procedure may not be covered or your may have some out of pocket expenses. ?? Please make a plan to bring someone to drive you home after the exam, and plan to no drive for 24 hours after your procedure. Due to the sedation given during the procedure, we cannot perform yourprocedure unless an adult who can pick you up in the Endoscopy Center after your procedure, and escort you home. In the interest of patient safety, there can be no exception to this. Please, no alternative forms of transportation like cabs or buses. After you receive your information packet from Gastroenterology and Hepatology and [facility]: ?? Please read ALL information in your information packet. ?? If you have read the information thoroughly, and still have questions about what you have read, please call [phone] between the hours of 7:00am - 7:00pm Thursday - Thursday, and a nurse will assist you. ?? If you have an urgent matter after hours, please call [phone], and ask to speak to the Gastroenterology Fellow percussion welding machine operator. ?? If you need to reschedule your colonoscopy, please call [phone]. We do have a high volume of patients for this exam, so please give a least 72 hours notice for routine rescheduling. MEDICATION INFORMATION ?? Please call your prescribing physician to see if it is safe for you to lessen the dose or stop your medication prior to this procedure. Please note: If you cannot safely stop these medications, please call [phone]. The prescribing physician can give you instructions on how to take your medications, before and after your procedure if you: GENERAL INFORMATION ON YOUR COLONOSCOPY (con't ?? If you take blood thinners like Coumadin, Aggrenox, Lovenox injections or anti-platelets like Plavix (Clopidogrel), Ticlid, Reopro, Integrilin, or Aggrastat call your prescribing physician to see if you can safely stop your medications, please call us, and let us know. Lovenox injections must bestopped 16 hours prior to the procedure. ?? If you are a diabetic, please talk to your doctor about the potential of decreasing your medicine, because you will not be eating as usual before the colonoscopy. Please bring your supplies with you for the procedure. ?? If you are On Anti-Arthritic medication. ?? If you take pain medications - Please do NOT stop taking your pain medications before our procedure. ?? If you take iron pills - Please do not take them 1 week prior; this includes multivitamins with iron in them. ?? Please continue to take your current medications if you take: ?? Chronic narcotics. ?? Anti-rejection medication after having a transplant. The day before your colonoscopy: ?? Take your colonoscopy preparation as directed by the instructions that are included in this packet of information - do not use the instructions from the pharmacy. The day of your colonoscopy: ?? Wear comfortable clothes ?? Do not eat breakfast. Please finish drinking the last 2 or 3 glasses of your colonoscopy preparation. You may have clear liquids until one hour before you arrive (2 hours before your procedure) [facility] () ?? You will need to arrive ONE HOUR before your procedure time, to help you prepare for your procedure; please see your letter for exact arrival time. ?? Please plan to be at [facility] for about 3 hours; please see the included form letter for estimated procedure and discharge times. GENERAL INFORMATION ON YOUR COLONOSCOPY (con't) ?? We do our best to be on time, however sometimes there are emergencies. While this doesn't happenvery often you may have a wait time. We want each and every patient to get the excellent care ou Endoscopy Center provides, therefore we thank you in advance for your patience if your procedure is unexpectedly delayed. ?? You will be given medication (Versed and Demerol) to make you sleepy, and comfortable during theprocedure. Please bring someone to drive you home after the exam, and do not drive for 24 hours after your procedure. Due to the sedation given during the procedure, we cannot perform your procedure unless you have an adult who can pick you up in the Endoscopy Center, after your procedure and escort you home. In the interest of patient safety, there can be no exceptions to this. Please no alternative forms of transportation like cabs or buses. ?? Your doctor will use a thin, flexible tube to examine the entire large intestine. As the tube isadvanced through the intestine, a video sensor in the tube transmits images to a television monitor. You should be able to go back to your usual activities after 24 hour although occasionally people may take a bit longer. After your colonoscopy: ?? Do not drive, operate equipment or plan to make any major decisions for 24 hours after your colonoscopy. Due to the sedation given during the procedure, we cannot perform your procedure unless youhave an adult who can pick you up in the Endoscopy Center after your procedure, and escort you home. Please, no alternative forms of transportation like cabs or buses. [email or web address] FREQUENTLY ASKED QUESTIONS ABOUT YOUR COLONOSCOPY Q: Can I drive myself home after a colonoscopy? A: No. The medication that you are given during your procedure will make you sleepy, so please arrange a responsible adult to pick you up after your procedure. DUE TO THE SEDATION GIVEN DURING THE PROCEDURE, WE CANNOT PERFORM YOUR PROCEDURE UNLESS YOU HAVE ANADULT WHO CAN PICK YOU UP IN THE ENDOSCOPY CENTER, AFTER YOUR PROCEDURE, AND ESCORT YOU HOME. UNFORTUNATELY, IN THE INTEREST OF PATIENT SAFETY, THERE CAN BE NO EXCEPTION TO THIS Q: What do I do about the medication I currently take? A: Please call your prescribing physician if you: ?? Take blood thinners like Coumadin, Aggrenox, Lovenox injections or anti- platelets like Plavix (Clopidogrel), Ticlid, Reopro, Integrilin, and Aggrastat to see if you can safely stop your medicationbefore your procedure. If there is a problem with stopping your medications, please call us and letus know. ?? Are a diabetic. Please talk to your doctor about the potential of decreasing your medicine, because you will not be eating as usual before the colonoscopy. ?? Have Lovenox injections - injections must be stopped 16 hours prior to the procedure. ?? You are on Anti-Arthritic medication. ?? Take iron pills, please do not take them 1 week prior; this includes multi- vitamins with iron inthem. A: Please continue to take your current medications if you: ?? Take chronic narcotics. ?? Take anti-rejection medications after having a transplant. Q: I am taking a lot of pain medication. Will I be able to be sedated enough during my procedure? Generally you will be adequately sedated with the moderate sedation medications used for routine colonoscopy. If you are taking a lot of pain medication, please FREQUENTLY ASKED QUESTIONS ABOUT YOUR COLONOSCOPY(con't) call. Occasionally, stronger sedation will be needed, and the procedure may be rescheduled for another time using deep sedation by the Anesthesiology department. Q: Will I be totally asleep during my colonoscopy? A: You will be given medication (Versed and Fentanyl) to make you sleepy, and comfortable during the procedure. During the colonoscopy, you will be able to respond to the staff's directions. Q: I have two instruction for the prep, which one do I follow? A: Please follow [facility] Gastroenterology instructions, NOT the instructions from the pharmacy. Q: My prep doesn't taste good, what can I do make it better? A: You may flavor your prep with Crystal Light however, you will want to flavor individual glasses of prep; do not add the Crystal Light to the entire gallon in case you not like the flavoring or want more than one flavor. Q: What happens if I start drinking the liquid laxative, and I become nauseated or start vomiting? A: Tale a thirty minute break, and then try again. Drinking the liquid laxative more slowly may also help. If you continue to have problems, please call [phone] during office hours at 7am - 5pm.After hours please call [phone], and ask for the Gastroenterology Fellow percussion welding machine operator. Q: Do I REALLY need to drink 2 to 3 glasses of prep in the morning? A: Yes, you do need to drink 2 to 3 glasses of prep in the morning however, that is counted as partof your half gallon. Q: What does it mean to have clear liquid stools at the end of the colon preparation? A: Your bowel movements will never Be totally clear, because of bile and other digestive juices in your intestines. After your preparation, you should have yellow or greenish-yellow liquid that youare excreting. Q: I see yellow color in the toilet bowl, and a few flecks. What do I do? A: If you drank the entire mixture, and your last bowel movements were clear enough to see the bottom of the toilet, you should be fine. It is OK if you have some flecks of material. The yellow coloris a result of bile that normally colors the feces. FREQUENTLY ASKED QUESTIONS ABOUT YOUR COLONOSCOPY Q: I have a long drive, what should I do about drinking the prep the morning of? A: You do still need to drink the 2 to 3 glasses the morning prior to your procedure. We suggest that you get up early to drink the rest of your prep, or bring it with you and drink it 10 - 15 minutes from the hospital. Q: I don't feel well. Should I come in for my colonoscopy? A: If you have a minor cold without a fever, you should come in for your procedure. If you have a fever, are vomiting, or have a deep chest cough, please call [phone] to see if you need to reschedule your appointment. Q: I am having my menstrual period. Should I reschedule my colonoscopy appointment? A: No. Your menstrual period will not interfere with your physician's ability to complete your procedure. [facility] FAQ 07/12/2009 Brian Rodriguez [address] [facility] [id number] Thank you for choosing [facility] for your medical needs. You are scheduledfor a colonoscopy on at the Endoscopy Center at [employer] 4T (Level 4). Below you will find important information regarding your procedure. We appreciate your attention to this letter and the enclosed documents. Arrival Time: Estimated Procedure Time: Estimated Discharge Time: We try very hard to be on time, however sometimes there are emergencies. While this doesn't happen very often, you may have a wait time. We want each and every patient to get the excellent care our Endoscopy Center provides, therefore we thank you in advance for your patience if your procedure is unexpectedly delayed. Please bring someone to drive you home after the exam, and do not drive for 24 hours after your procedure. Due to the sedation given during the procedure, we cannot perform your procedure, unless youhave an adult who can pick you up in the Endoscopy Center after your procedure, and escort you home. In the interest of patient safety, there can be no exceptions to this. Please, no alternative forms of transportation like cabs or buses. Enclosed you will find: Information regarding your colonoscopy Your preparation prescription and instructions Frequently Asked Questions regarding colonoscopies You will get instructions from the pharmacy for your preparation: please follow the instructions that are enclosed - do not use the instructions from the pharmacy. If you have read the enclosed information thoroughly, and still have questions about what you have read, please call [phone] between the hours of 7:00am - 7:00pm Thursday - Thursday, and ask to speak to the Gastroenterology Fellow percussion welding machine operator. If you need to reschedule your procedure please call: [phone]. Thank you for choosing [facility]. Sincerely, The Gastroenterology and Hepatology Team and the Endoscopy Center at [facility] documented in this encounter Progress Notes * Dion Barlow MD - 11/05/2011 2:31 PM EST Patient Active Problem List Diagnoses ??? Ulcerative colitis [556.9J] Colonoscopy 04/08/10 (Dr. Gomes [facility]) - inflammation only within the rectum and sigmoid; extent of the exam was to the hepatic flexure; biopsies proximal to the sigmoid nl TREATMENT: cortenemas, Asacol, Rowasa, prednisone ??? Diabetes mellitus [250.00A] ??? Hearing loss [389.9AB] ??? GERD (gastroesophageal reflux disease) [530.81S] ??? Hydrocele [603.9F] ??? Asthma [493.90AE] Subjective: HPI Mr. Rodriguez comes back to see me for the first time since October 01 at which time, I had recommended SSZ 2 g PO bid, Rowasa enemas, avoiding NSAIDs. He used the enemas nightly for 2 weeks and then cut back to every other night which he has continued. Mr. Rodriguez reports that he has no blood in the stool any more However, frequency and urgency of diarrhea is essentially unchanged. He has 3-4 loose stools each morning and then 1-2 more after lunch and after dinner. He continues to have urgency. He has had some crampy pain in the lower abdomen associated with stooling. When he had prednisone in the past, he had improvement of diarrhea. Review of Systems Constitutional: Negative for fever and unexpected weight change. Wt is up since the last visit HENT: Negative for mouth sores. Eyes: Positive for visual disturbance. Negative for pain and redness. Reports that his vision will change - as if I am seeing underwater - suddenly and intermittently. This lasts for about one hour at a time. Respiratory: Negative for cough and shortness of breath. Cardiovascular: Negative for chest pain and palpitations. Gastrointestinal: Positive for abdominal pain and diarrhea. Negative for nausea, vomiting, constipation, blood in stool and abdominal distention. Genitourinary: Negative for dysuria. Musculoskeletal: Positive for arthralgias. Negative for joint swelling. Skin: Negative for rash. Neurological: Negative. Psychiatric/Behavioral: Negative. Objective: Physical Exam Vitals reviewed. Constitutional: He is oriented to person, place, and time. He appears well- nourished. No distress. HENT: Mouth/Throat: Oropharynx is clear and moist. No oropharyngeal exudate. Eyes: Conjunctivae are normal. Pupils are equal, round, and reactive to light. Neck: Neck supple. Cardiovascular: Normal rate, regular rhythm and normal heart sounds. Pulmonary/Chest: Breath sounds normal. He has no wheezes. He has no rales. Abdominal: Soft. Bowel sounds are normal. He exhibits no distension and no mass. No tenderness. He has no rebound and no guarding. Musculoskeletal: He exhibits no edema. Neurological: He is alert and oriented to person, place, and time. Skin: Skin is warm and dry. No rash noted. Assessment and Plan: Mr. Rodriguez has persistent symptoms consistent with ulcerative colitis despite increasing his oral mesalamine dose and despite rectal therapies. We discussed repeating colonoscopy to restage his disease at this juncture because I suspect that we will need to escalate therapy to prednisone with a bridge to azathioprine. I will arrange for colonoscopy as soon as possible. Today, I will draw baselineblood counts as well as a TPMT enzyme activity. We discussed the following recommendations that were printed out for the patient: 1. Continue sulfasalazine 2. Continue Rowasa enemas every other night 3. Okay to add back aspirin 81 mg daily but continue to avoid naproxen and other NSAIDs 4. Arrange for colonoscopy. Davina Barlow MD [employer] Section of Gastroenterology [place] [address] CC: MORE NAYLOR MD [address] [place] [address] documented in this encounter Plan of Treatment Upcoming Encounters Date Type Department Care Team (Late st Contact Info) Description 08/15/2024 9:00 AM EDT Office Visit [place] [address] Dion Barlow MD [facility] [place] [address] 09/01/2024 11:20 AM EDT Office Visit Dermatology at [place] [address] [place] [address] Gómez Mercer MD [facility] DR EDDIE [place] [address] 09/21/2024 2:45 PM EDT Office Visit [facility] [place] [phone] Trung Hoyos MD [facility] [place] [address] documented as of this encounter Procedures Procedure Name Priority Date/Time Associated Diagnosis Comments CMP W/FASTING GLUCOSE Routine 11/05/2011 3:15 PM EST Ulcerative colitis DIFFERENTIAL, AUTOMATED Routine 11/05/2011 3:15 PM EST TPMT ENZYME Routine 11/05/2011 3:15 PM EST Ulcerative colitis SEDIMENTATION RATE Routine 11/05/2011 3: 15 PM EST Ulcerative colitis CBC (WITH DIFF) Routine 11/05/2011 3:15 PM EST Ulcerative colitis CRP, CARDIAC RISK (HS CRP) Routine 11/05/2011 3:15 PM EST Ulcerative colitis COLONOSCOPY Routine 11/05/2011 2:42 PM EST Ulcerative colitis documented in this encounter Results * DIFFERENTIAL, AUTOMATED (11/05/2011 3:15 PM EST) Neutrophil % 65.0 34.0 - 71.0 % CERNER MILLENNIUM Neutrophil Absolute 3.92 1.50 - 6.30 x10(3)/mcL CERNER MILLENNIUM Lymph % 25.7 19.0 - 53.0 % CERNER MILLENNIUM Lymphocytes Abs 1.6 1.0 - 3.6 x10(3)/mcL CERNER MILLENNIUM Monocyte % 5.6 4.0 - 13.0 % CERNER MILLENNIUM Monocyte Abs 0.3 0.2 - 1.0 x10(3)/mcL CERNER MILLENNIUM Eos % 2.2 0.0 - 7.0 % CERNER MILLENNIUM Eosinophils Abs 0.1 0.0 - 0.5 x10(3)/mcL CERNER MILLENNIUM Basophil % 1.2 0.0 - 2.0 % CERNER MILLENNIUM Baso Absolute 0.1 0.0 - 0.2 x10(3)/mcL CERNER MILLENNIUM Immature Gran % 0.30 0.00 - 0.66 % [facility] Comment: Immature granulocytes(IG's)percentage and absolute count will include metamyelocytes, myelocytes, and promyelocytes. Blood smears from CBCs yielding IG's will be scanned manually for concordance. If this scan disagrees with the automated IG or if promyelocytes are noted, a manual differential will be performed. Immature Gran Absolute 0.02 0.00 - 0.05 x10(3)/mcL [facility] Blood specimen (specimen) 11/05/2011 3:15 PM EST 11/05/2011 3:22 PM EST L Karthik Barlow MD HEMATOLOGY ORDERABLE S Performing Organization Address City/[facility]/ZIP Co de Phone Number [facility] * TPMT Enzyme (11/05/2011 3:15 PM EST) TPMT Enzyme See Note [facility] Comment: Normal Activity Please see scanned report in Chart Review under the Non-DH Laboratory Heading. Test performed by [facility], [address] [place] [address], [place] [address] Blood specimen (specimen) 11/05/2011 3:15 PM EST 11/05/2011 3:45 PM EST L Karthik Barlow MD CHEMISTRY ORDERABLES Performing Organization Address [facility] Co de Phone Number [facility] * High Sensitivity CRP (11/05/2011 3:15 PM EST) C-Reactive Protein High Sensitivity 2.3 mg/L [facility] Comment: Interpretations: 1) For cardiac risk assessment, [...] prevention. ??Circulation 2003; 107:363-369 Blood specimen (specimen) 11/05/2011 3:15 PM EST 11/05/2011 3:23 PM EST L Karthik Barlow MD CHEMISTRY ORDERABLES Performing Organization Address [facility] de Phone Number [facility] * Sedimentation rate (11/05/2011 3:15 PM EST) Sedimentation Rate Automated 13 0 - 15 mm/hr [facility] Blood specimen (specimen) 11/05/2011 3:15 PM EST 11/05/2011 3:22 PM EST Dion Barlow MD HEMATOLOGY ORDERABLE S Performing Organization Address [facility] de Phone Number [facility] * CMP w/fasting Glucose (11/05/2011 3:15 PM EST) Glucose Fasting 97 65 - 99 mg/dL [facility] Comment: ?Fasting* Glucose Interpretive Criteria Normal ?65-99 [...] of Diabetes Mellitus, Position Statement from the [place] [employer]. ??Diabetes Care, Volume 33, Supplement 1, Nov 2009 Blood Urea Nitrogen 13 10 - 20 mg/dL CERNER MILLENNIUM Creatinine 0.86 0.80 - 1.50 mg/dL CERNER MILLENNIUM Sodium 141 135 - 145 mmol/L CERNER MILLENNIUM Potassium 3.7 3.5 - 5.0 mmol/L CERNER MILLENNIUM Comment: Please note: ??Patients with WBC >100,000 may have falsely elevated Potassium levels. ??For accurate Potassium quantification in these patients send serum separator tube (gold top) for subsequent determinations. ??Contact the Clinical Chemistry Laboratory if there are any questions. Chloride 104 98 - 107 mmol/L CERNER MILLENNIUM Carbon Dioxide 24 22 - 31 mmol/L CERNER MILLENNIUM Anion Gap 13 5 - 15 mmol/L CERNER MILLENNIUM Calcium 9.7 8.5 - 10.5 mg/dL CERNER MILLENNIUM Protein, Total 8.3 6.4 - 8.3 gm/dL CERNER MILLENNIUM Albumin 4.6 3.2 - 5.2 gm/dL CERNER MILLENNIUM Aspartate Aminotransferase 19 0 - 39 unit/L CERNER MILLENNIUM Alanine Aminotransferase 26 0 - 55 unit/L CERNER MILLENNIUM Alkaline Phosphatase 58 40 - 120 unit/L CERNER MILLENNIUM Bilirubin, Total 0.5 0.2 - 1.3 mg/dL CERNER MILLENNIUM Bilirubin, [...] multiply eGFR by 1.2. The MDRD equation has not been validated for pediatric patients and is only valid for patients with age >= 18 years. At present, NKDEP does NOT recommend using [...] with diabetic kidney disease. References: http://nkdep.nih.gov/resources/NKDEP_Suggestn4Labs_0606_508.pdf http://www.kidney.org/professionals/kls/pdf/faq_gfr.pdf Blood specimen (specimen) 11/05/2011 3:15 PM EST 11/05/2011 3:23 PM EST L Karthik Barlow MD CHEMISTRY ORDERABLES [facility] * (ABNORMAL) CBC (with Diff) (11/05/2011 3:15 PM EST) White Blood Cell 6.0 4.0 - 10.0 x10(3)/mc L CERNER MILLENNIUM Red Blood Cell 4.38(L) 4.63 - 6.08 x10(6)/mc L CERNER MILLENNIUM Hemoglobin 14.0 13.7 - 17.5 gm/dL CERNER MILLENNIUM Hematocrit 41.1 40.0 - 51.0 % CERNER MILLENNIUM Mean Cell Volume 93.8(H) 79.0 - 92.0 fL CERNER MILLENNIUM Mean Cell Hemoglobin 32.0 25.6 - 32.2 pg CERNER MILLENNIUM Mean Cell Hemoglobin Concentration 34.1 32.0 - 36.5 gm/dL CERNER MILLENNIUM Platelet 226 145 - 370 x10(3)/mc L CERNER MILLENNIUM RDW Standard Deviation 44.0 35.0 - 46.0 fL CERNER MILLENNIUM RDW coefficient of variation 12.9 10.9 - 14.4 % CERNER MILLENNIUM Mean Platelet Volume 10.9 9.0 - 12.0 fL CERNER MILLENNIUM Blood specimen (specimen) 11/05/2011 3:15 PM EST 11/05/2011 3:22 PM EST L Karthik Barlow MD HEMATOLOGY ORDERABLE [facility] documented in this encounter Visit Diagnoses Diagnosis Ulcerative colitis- Primary Ulcerative colitis, unspecified documented in this encounter Care Teams Digital Assistant Relationship Specialty Start Date End Date More Naylor MD [address] [place] [address] PCP - General 10/01/11 02/13/21 documented as of this encounter
--- OUTSIDE RECORDS SUMMARY | 2024-06-29 16:07 | XMS_ITS | Encounter Summary ---
Author Organization [facility] [place] [address] Care Team Providers Care Rhinologist Name Role Phone Maximilian Fall MD Primary Care Provider [phone] Encounter Details Date Type Department Care Team (Late st Contact Info) Description 03/03/2012 Orders [place] [phone] Mica Gore APRN [facility] [place] [address] Ulcerative colitis (Primary Dx) Social History Tobacco [...] 9:00 AM EDT Office [place] [phone] Dion Barlow MD [facility] [place] [address] 09/01/2024 11:20 AM EDT Office Visit Dermatology at [facility] [address] [place] [address] Gómez Mercer MD [facility] DR [place] [address] 09/21/2024 2:45 PM EDT Office Visit Pain and Spine Center at [facility] [place] [address] Trung Hoyos MD [facility] [place] [address] documented as of this encounter Procedures Procedure Name Priority Date/Time Associated Diagnosis Comments FLEXIBLE SIGMOIDOSCOPY Routine 2 1:15 PM EDT Ulcerative colitis documented in this encounter Results * FLEXIBLE SIGMOIDOSCOPY (03/16/2012 1:15 PM EDT) [facility] Signature FLEXIBLE SIGMOIDOSCOPY [facility] Endoscopy Patient Name: Brian Rodriguez ? Procedure Date: 03/16/2012 1:15 PM ? N: [id number] ? Date of : 1950 ? Age: 61 ? Order #: [id number] ? Procedure: ? Flexible Sigmoidoscopy Indications: ? pt with active UC, assess severity ? prior to entry in MTX study Providers: ? Enrico Tellez MD, April Augustine ? RONY Archibald, Kingsley Oneal, ? Welt Insole Channeler Referring MD: ?Maximilian Fall MD Requesting Provider: Socrates Barlow Medicines: ? Fentanyl 100 micrograms IV, [...] Barlow MD GENERAL SURGICAL ORD ERABLES [employer] documented in this encounter Visit Diagnoses Diagnosis Ulcerative colitis- Primary Ulcerative colitis, unspecified documented in this encounter Care Teams Rhinologist Relationship Specialty Start Date End Date Maximilian Fall MD [address] [place] [address] PCP - General 10/01/11 02/13/21 documented as of this encounter
--- OUTSIDE RECORDS SUMMARY | 2024-06-29 16:07 | XMS_ITS | Encounter Summary ---
Author Organization [facility] [place] [address] Care Team Providers Care Fur Operator Name Role Phone More Naylor MD Primary Care Provider [phone] Reason for Visit * Reason Comments Ulcerative Colitis Encounter Details Date Type Department Care Team (Late st Contact Info) Description 04/21/2012 1:30 PM EDT Follow-[place] [phone] Dion Barlow MD [facility] [place] [address] Ulcerative colitis (Primary Dx) Discharge Disposition: Home [...] Sign Reading Time Taken Comments Blood Pressure 139/87 04/21/2012 12:51 PM EDT Pulse 106 04/21/2012 12:51 PM EDT Temperature - - Respiratory Rate - - Oxygen Saturation - - Inhaled Oxygen Concentration - - Weight 108.9 kg (240 lb) 04/21/2012 12:51 PM EDT Height 193 cm (6' 4) 04/21/2012 12:51 PM EDT Body Mass Index 29.21 04/21/2012 12:51 PM EDT documented in this encounter Patient Instructions * Patient Instructions* Dion Barlow MD - 04/21/2012 2:00 PM EDT 1. Increase sulfasalazine to 6 pills twice per day. 2. Continue with nightly Rowasa enemas. 3. Continue to wean the prednisone as directed by Farideh Weinberg APRN. 4. Take a teaspoon of Imodium 15-30 min prior to meals three times per day. 5. Follow-up with me in 4 months. documented in this encounter Progress Notes * Dion Barlow MD - 04/21/2012 1:44 PM EDT Patient Active Problem List Diagnoses ??? Ulcerative colitis Colonoscopy 04/08/10 (Dr. Gomes [facility]) - inflammation only within the rectum and sigmoid; extent of the exam was to the hepatic flexure; biopsies proximal to the sigmoid nl Repeat exam 11/27/11 ([facility]): mildly active colitis in the sigmoid [...] proctosigmoiditis. At last visit, he resumed sulfasalazine 2 g bid, increased Rowasa to nightly, and weaned off of his prednisone. He is now down to one pill of the prednisone and feels that symptoms are unchanged. He is back on sulfasalazine 4 pills twice per day and also taking nightly Rowasa. He is also taking a teaspoon of imodium every morning. Mr. Rodriguez says that he is feeling pretty good. He has good and bad days. On a bad day, he will have up to 8 loose bowel movements without any bleeding. Typically, symptoms are worst after eating. Ongood days, he moves his bowels twice per day for formed stool. There has been no apthous stomatitis, episcleritis, [...] pain and diarrhea. Negative for nausea, vomiting, constipation and blood in stool. Occasional pain in the LLQ and prior to bowel movements. Genitourinary: Negative for dysuria and hematuria. Skin: Positive for wound. Negative for rash. Right thumb swollen - improved since last exam. Neurological: Negative. Hematological: Negative. Psychiatric/Behavioral: Negative. Objective: [...] no guarding. Musculoskeletal: He exhibits no edema. Right thumb slightly erythematous. Mild tenderness to touch. Lymphadenopathy: He has no cervical adenopathy. Neurological: He is alert and oriented to person, place, and time. Skin: Skin is warm and dry. No rash noted. Psychiatric: He has a normal mood and affect. Wt Readings from Last 3 Encounters: 04/21/12 108.863 kg (240 lb) 04/02/12 111.313 kg (245 lb 6.4 oz) 03/02/12 113.399 kg (250 lb) Lab Results Component Value Date WBC 8.0 [...] has left-sided ulcerative colitis with persistently active [id number] symptoms andmildly active disease endoscopically. He failed screening for a recent clinical trial. We discussed starting azathioprine, but he is reticent due to the risks. Furthermore, I think we may be able to optimize his current medications yet a little more and perhaps avoid requiring an immunosuppressant. We discussed increasing sulfasalazine to 6 g per day in divided doses and continuing Rowasa, which he is tolerating well. We discussed the following recommendations that were printed out for the patient: 1. Increase sulfasalazine to 6 pills twice per day. 2. Continue with nightly Rowasa enemas. 3. Continue to wean the prednisone as directed by Farideh Weinberg APRN. 4. Take a teaspoon of Imodium 15-30 min prior to meals three times per day. 5. Follow-up with me in 4 months. CC: MORE NAYLOR MD [address] [facility] [address] documented in this encounter Plan of Treatment Upcoming Encounters Date Type Department Care Team (Late st Contact Info) Description 08/15/2024 9:00 AM EDT Office [place] [address] Dion Barlow MD [facility] [place] [address] 09/01/2024 11:20 AM EDT Office Visit Dermatology at [facility] [address] [place] [address] Gómez Mercer MD [facility] [address] [place] [address] 09/21/2024 2:45 PM EDT Office Visit Pain and Spine Center at [facility] [place] [phone] Trung Hoyos MD [facility] [place] [address] documented as of this encounter Visit Diagnoses Diagnosis Ulcerative colitis- Primary Ulcerative colitis, unspecified documented in this encounter Care Teams Fur Operator Relationship Specialty Start Date End Date More Naylor MD [address] [place] [address] PCP - General 10/01/11 02/13/21 documented as of this encounter
--- OUTSIDE RECORDS SUMMARY | 2024-06-29 16:07 | XMS_ITS | Encounter Summary ---
Author Organization [facility] [place] [address] Care Team Providers Care Grain Shipper Name Role Phone Maximilian Fall MD Primary Care Provider [phone] Encounter Details Date Type Department Care Team (Late st Contact Info) Description 03/02/2012 External Results [place] [phone] Dion Barlow MD [facility] [place] [address] Social History Tobacco Use Types Packs/Day Years [...] 9:00 AM EDT Office [place] [phone] Dion Barlow MD [facility] [place] [address] 09/01/2024 11:20 AM EDT Office Visit Dermatology at [facility] [address] [place] [address] óGmez Mercer MD [facility] [place] [address] 09/21/2024 2:45 PM EDT Office Visit Pain and Spine Center at [facility] [place] [address] Trung Hoyos MD [facility] [place] [address] documented as of this encounter Procedures Procedure Name Priority Date/Time Associated Diagnosis Comments EXTERNAL LAB RESULTS Routine 03/02/2012 documented in this encounter Results * External Lab Results (03/02/2012) Blood specimen (specimen) 03/02/2012 L Karthik Barlow MD CHEMISTRY ORDERABLES documented in this encounter Visit Diagnoses Not on filedocumented in this encounter Care Teams Grain Shipper Relationship Specialty Start Date End Date Maximilian Fall MD [address] [place] [address] PCP - General 10/01/11 02/13/21 documented as of this encounter
--- OUTSIDE RECORDS SUMMARY | 2024-06-29 16:07 | XMS_ITS | Encounter Summary ---
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 Builder Apprentice Name Role Phone More Naylor MD Primary Care Provider [phone] Reason for Visit * Reason Comments GI Problem Encounter Details Date Type Department Care Team (Late st Contact Info) Description 10/01/2011 9:30 AM EST Office [place] [address] Dion Barlow MD [facility] [place] [address] Ulcerative colitis (Primary Dx) Discharge Disposition: Home [...] Sign Reading Time Taken Comments Blood Pressure 139/86 10/01/2011 8:53 AM EST Pulse 94 10/01/2011 8:53 AM EST Temperature - - Respiratory Rate - - Oxygen Saturation - - Inhaled Oxygen Concentration - - Weight 110.8 kg (244 lb 3.2 oz) 10/01/2011 8:53 AM EST Height 193 cm (6' 4) 10/01/2011 8:53 AM EST Body Mass Index 29.72 10/01/2011 8:53 AM EST documented in this encounter Patient Instructions * Patient Instructions* Dion Barlow MD - 10/01/2011 11:00 AM EST 1. Stool studies to be done at [facility] - will give instructions and a kit for collection. Check giardia, C. Difficile, and culture. Some of these were done in February, but we will recheck given that superimposed would change our approach. 2. Avoid non-steroidal anti-inflammatory medications (NSAIDs) including but not limited to Advil, ibuprofen, Motrin, Aleve, Excedrin, naproxen, Mobic, indomethacin, and aspirin. Acetaminophen (Tylenol) is okay for aches and pains, and I recommend this instead of naproxen. Please discuss with Dr. Naylor. 3. Increase Asacol to 6 tablets per day until you run out. THEN, start sulfasalazine 500 mg tablet twice daily. Then, every day add one pill until you are taking 8 pills per day (4 in the morning and4 in the evening). Along with this medications, you need to take a folate supplement (folic acid 1mg daily). 4. Rowasa enemas - take one each evening rectally while laying on your left side. After about 10 min, you can change position to whatever is comfortable and try to keep the enema through the night. Do this nightly for 2 weeks, then stay on it every other night until you come back to see me. 5. Expect improvement in symptoms in about 2 weeks. 6. Follow-up to see me in about 6 weeks. documented in this encounter Progress Notes * Dion Barlow MD - 10/01/2011 10:27 AM EST Mr. Brian Rodriguez is a 61 y.o. yo man who presents to the section of Gastroenterology in consultation at the request of Dr. MORE NAYLOR MD for the evaluation and management of ulcerative colitis that has been refractory to multiple medications. HISTORY OF PRESENT ILLNESS Mr. Rodriguez reports that he was diagnosed with ulcerative colitis a little over one year ago. He reports that the last colonoscopy in March 2010 was the first time he was told of the diagnosis. At that time, Dr. Gomes reported typical changes of ulcerative colitis within the sigmoid and rectum. Biopsies from the more proximal colon were negative. Symptoms at diagnosis consisted of bloody diarrhea and abdominal pain without weight loss. He was treated initially with cortenemas with a good response and then Asacol was added as the enemas were tapered. He also had prednisone at one point thoughhe can not recall when or any details other than Dr. Naylor wanting him on a limited course. He has not had rectal therapy in over one year. He continues on the Asacol 800 mg twice daily. He reports that recently symptoms seem to wax and wane. Over this past weekend, he was having 4-5 loose watery stools each morning with another stool mid- morning, one in the afternoon after lunch. Hehas occasional nocturnal urgency and loose stools. He has incontinence about once per week. He estimates that he sees blood in the stool about once per week but occasionally it might increase to 2-3 times per week. He thinks the bleeding is associated with activity, but he also takes more naproxen during these times. REVIEW OF SYSTEMS Notable for the gastrointestinal symptoms as described above. He takes naproxen for shoulder pain and arthritis. He takes one tablet daily. Occasionally, he takes Tylenol which helps his joint pain. There has been no anorexia, fever, or unintended weight change; no red or painful eyes; [...] neurologic symptoms or easy bruising or bleeding. There has been no apthous stomatitis (except for an occasional small oral ulcer), episcleritis, uveitis, pyoderma gangrenosum, erythema nodosum, or perianal lesions. PAST MEDICAL HISTORY: Diagnosis ??? Ulcerative colitis Colonoscopy 04/08/10 (Dr. Gomes [facility]) - inflammation only within the rectum and sigmoid; extent of the exam was to the hepatic flexure; biopsies proximal to the sigmoid nl TREATMENT: cortenemas, Asacol, Rowasa, prednisone ??? Diabetes mellitus ??? Hearing loss ??? GERD (gastroesophageal reflux disease) ??? Hydrocele Chronic back and joint pain S/p cholecystectomy ??? Asthma MEDICATIONS: Current outpatient prescriptions Medication Sig Dispense Refill ??? naproxen (NAPROSYN) 500 mg tablet Take 500 mg by mouth 2 times daily. ??? omeprazole (PRILOSEC) 20 mg capsule Take 20 mg by mouth 2 times daily. ??? MULTI-VITAMIN ORAL Take by mouth daily. ??? ascorbic acid (VITAMIN C) 500 mg tablet Take 500 mg by mouth daily. ??? aspirin 81 mg chewable tablet Take 81 mg by mouth daily. ??? Mesalamine 800 mg TbEC Take 1.6 g by mouth 3 times daily. ??? glyBURIDE (DIABETA) 5 mg tablet Take 5 mg by mouth daily. ??? fluticasone (FLOVENT) 110 mcg/Actuation inhaler Inhale 2 puffs into the lungs 2 times daily. ??? propranolol (INDERAL LA) 80 mg 24 hr capsule 80mg, PO, Once daily ??? metFORMIN (GLUCOPHAGE) 500 mg tablet 500mg, PO, Twice daily ??? acetaminophen (TYLENOL) 325 mg tablet ??? bacitracin 500 unit/g ointment ALLERGIES/ADR Allergies Allergen Reactions ??? Tetracycline Analogues ??? Erythromycin Base CIS - Unknown SOCIAL HISTORY: Mr. Rodriguez is single but has lived with his partner for 41 years with whom he has three kids. 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 He quit smoking in 1991 after 30 years. FAMILY HISTORY: Her grandmother had ulcerative colitis. She had an intestinal cancer - unclear which type - he saysstomach. PHYSICAL EXAMINATION: Filed Vitals: 10/01/11 0853 BP: 139/86 Pulse: 94 GEN: Healthy-appearing in no acute distress. Appears stated age. Cooperate and answers questions appropriately. SKIN: No rashes or abnormal lesions. NECK: No adenopathy and no thyromegaly. HEENT: PERRL, EOMI, ALLERGY AND IMMUNOLOGY SPECIALIST and OP clear without ulceration or lesions. Dentures in place. LUNGS: Clear to auscultation bilaterally except for few bilateral rhonchi COR: Regular, normal S1 and S2 without murmurs ABD: Normal active bowel sounds. Soft and non-distended. No tenderness to deep palpation in all 4 quadrants. No organomegaly. Mild diastasis recti - non-tender EXT: 1+ pitting edema PERTINENT LABS AND IMAGING: Labs done 09/02 personally reviewed - LFTs, electrolytes, BUN, Cr - all within normal. Last CBC sent from Dr. Naylor was 09/07/09 and within normal IMPRESSION: Mr. Rodriguez has one year of symptoms typical of L-sided ulcerative colitis with a colonoscopy with biopsies that seemed to confirm the diagnosis. His most helpful medications seems to have been topical therapy (enemas), but since stopping them he has never achieved complete remission. I think he hasbeen underdosed with his mesalamine and also suspect that chronic NSAID use has also contributed to persistent colitis. Trials of mesalamine have shown that doses of 2.4 g are superior to lower doses. Thought the ASCEND trials showed no significant difference between 2.4 and 4.8 g, subgroups of patients with more severe symptoms did benefit from the higher dose. I recommended adding back topical therapy and increasing the dose of mesalamine. In addition, I recommended stopping NSAIDs and trying acetaminophen instead. The other obstacle to his care is the cost of medications. Therefore, I recommended transitioning from Asacol (once he runs out) to sulfasalazine. Though this is less well-tolerated, it is just as effective and much cheaper. If he can tolerat e the medication, it will provide cost-savings. If the above changes in therapy do not improve symptoms, then I will restage with colonoscopy. The only other diagnostic test I recommended today was to recheck stool studies (check in February by Dr. Naylor) to be sure there is no superimposed infection. He should have a CBC and repeat LFTs when he returns after sulfasalazine has been started. RECOMMENDATIONS (printed and given to the patient): 1. Stool studies to be done at [facility] - will give instructions, an order, and a kit for collection. Check giardia, C. Difficile, and culture. Some of these were done in February, but we will recheck giventhat superimposed would change our approach. 2. Avoid non-steroidal anti-inflammatory medications (NSAIDs) including but not limited to Advil, ibuprofen, Motrin, Aleve, Excedrin, naproxen, Mobic, indomethacin, and aspirin. Acetaminophen (Tylenol) is okay for aches and pains, and I recommend this instead of naproxen. Please discuss with Dr. Naylor. 3. Increase Asacol to 6 tablets per day until you run out. THEN, start sulfasalazine 500 mg tablet twice daily. Then, every day add one pill until you are taking 8 pills per day (4 in the morning and4 in the evening). Along with this medications, you need to take a folate supplement (folic acid 1mg daily). 4. Rowasa enemas - take one each evening rectally while laying on your left side. After about 10 min, you can change position to whatever is comfortable and try to keep the enema through the night. Do this nightly for 2 weeks, then stay on it every other night until you come back to see me. 5. Expect improvement in symptoms in about 2 weeks. 6. Follow-up to see me in about 6 weeks. The patient was given my contact information and will call me with concerns or questions 50 minutes of this 60 minute [id number] encounter were spent counseling the patient in the issuesoutlined above. Davina Barlow MD Refractory Tile Helperprivate security guard Section of Gastroenterology [place] [address] [email or web address] CC: MORE NAYLOR MD [address] [facility] [address] documented in this encounter Plan of Treatment Upcoming Encounters Date Type Department Care Team (Late st Contact Info) Description 08/15/2024 9:00 AM EDT Office [place] [address] Dion Barlow MD [facility] [place] [address] 09/01/2024 11:20 AM EDT Office Visit Dermatology at [facility] [address] [place] [address] Gómez Mercer MD [facility] DR EDDIE [place] [address] 09/21/2024 2:45 PM EDT Office Visit [facility] [place] [address] Trung Hoyos MD [facility] [place] [address] documented as of this encounter Visit Diagnoses Diagnosis Ulcerative colitis- Primary Ulcerative colitis, unspecified documented in this encounter Care Teams Truck Body Builder Apprentice Relationship Specialty Start Date End Date More Naylor MD [address] [place] [address] PCP - General 10/01/11 02/13/21 documented as of this encounter
--- OUTSIDE RECORDS SUMMARY | 2024-06-29 16:07 | XMS_ITS | Encounter Summary ---
Author Organization [facility] [place] [address] Care Team Providers Care Repair Miller Name Role Phone More Naylor MD Primary Care Provider [phone] Reason for Visit * Reason Comments Follow-up Encounter Details Date Type Department Care Team (Late st Contact Info) Description 04/02/2012 12:30 PM EDT Follow-[place] [address] Marcelle Weinberg APRN [facility] [place] [address] UC (ulcerative colitis) (Primary Dx) Discharge Disposition: Home Social History [...] Sign Reading Time Taken Comments Blood Pressure 142/82 04/02/2012 12:17 PM EDT Pulse 70 04/02/2012 12:17 PM EDT Temperature - - Respiratory Rate - - Oxygen Saturation - - Inhaled Oxygen Concentration - - Weight 111.3 kg (245 lb 6.4 oz) 012 12:17 PM EDT Height 193 cm (6' 4) 04/02/2012 12:17 PM EDT Body Mass Index 29.87 04/02/2012 12:17 PM EDT documented in this encounter Patient Instructions * Patient Instructions* Marcelle Weinberg APRN - 04/02/2012 1:10 PM EDT - slowly wean off prednisone 15 mg daily x 2 weeks; 10 mg daily x 2 weeks; 5 mg daily x 2 weeks; 5 mg every other day x 2 weeks then off - increase Rowasa enema once every night for now, - Restart Sulfasalazine 4 pills twice daily, - continue folic acid 1 tab once daily - try imodium as needed for diarrrhea documented in this encounter Progress Notes * Marcelle Weinberg APRN - 04/02/2012 12:30 PM EDT Patient Active Problem List Diagnoses ??? Ulcerative colitis Colonoscopy 04/08/10 (Dr. Gomes [facility]) - inflammation only within the rectum and sigmoid; extent of the exam was to the hepatic flexure; biopsies proximal to the sigmoid nl Repeat exam 11/27/11 ([facility]): mildly active colitis in the sigmoid colon and a small cecal patch. Suspected lack of distal involvement due to topical therapies; sigmoid diverticulosis; nl ileum. Biopsies with active colitis on the L but not R colon. 4 mm TA in the transverse TREATMENT: cortenemas, Asacol, Rowasa, prednisone, and imodium ??? Diabetes mellitus ??? Hearing loss ??? GERD (gastroesophageal reflux disease) ??? Hydrocele ??? Asthma Last visit: 12/[address] Barlow. Subjective: HPI Patient returns for routine f/u. He had a recent flex-sigmoidoscopy that showed mild left sided colitis. Since he was placed on prednisone 20 mg daily. He remains on Rowasa enema 2x/week. His Sulfasalazine was stopped 2 weeks prior to his flex-sigmoidoscopy in anticipation of enrolling to our clinical trial. Unfortunately he is excluded in the study given mild disease. Overall, he is about the same. He continues to have diarrhea. Some good days and bad days. On a good day, having Bm 3x/day of loose stool , no bleeding. On a bad day, can go several times in a day ~ 6x/day, mostly precipitated after eating. + urgency. This is accompanied by crampy abdominal pain right before defecation. He reports that when he was staking Rowasa enema q night his sx's are better. He takes one teaspoon of imodium every day but on a bad day can go up to 3 tsp/day. No nausea/vomiting. He also reports intermittent episodes of excessive sweating, no chills no fever. He also has swollen right thumb that he had previously injured. He is diabetic, blood sugar ranges in the 130's on metformin and Glucophage. This is followed by his PCP. There has been no apthous stomatitis, episcleritis, uveitis, inflammatory arthritis, pyoderma gangrenosum, erythema nodosum, or perianal lesions. Review of Systems Constitutional: Positive for diaphoresis. Negative for fever, chills, activity change, appetite change and unexpected weight change. HENT: Negative for mouth sores. Eyes: Negative for pain and redness. Respiratory: Negative for cough and shortness of breath. Cardiovascular: Negative for chest pain and palpitations. Gastrointestinal: Positive for abdominal pain and diarrhea. Negative for nausea, vomiting, constipation and blood in stool. Genitourinary: Negative for dysuria and hematuria. Musculoskeletal: See HPI> Skin: Positive for wound. Negative for rash. Right thumb swollen. This is followed by his PCP. Neurological: Negative. Hematological: Negative. Psychiatric/Behavioral: Negative. Objective: [...] Musculoskeletal: He exhibits no edema. Right thumb swollen, tender to touch. Lymphadenopathy: He has no cervical adenopathy. Neurological: He is alert and oriented to person, place, and time. Skin: Skin is warm and dry. No rash noted. Psychiatric: He has a normal mood and affect. TESTINGS: Procedure: Flexible Sigmoidoscopy Findings: The rectum was relatively spared of inflammation (he is taking enema therapy). There was mild (Calvo score 1) inflammation patchy from 10 cm to 25 cm in sigmoid colon. This was characterized by patchy submucosal hemorrhage mild granularity and loss of vascularity. There were no ulcerations, minimal friability. Bx obtained. Exam from 25 cm to ascending colon was normal Impression: Mild (Calvo score 1) left sided colitis to 25 cm, patchy in nature with sparing of rectum Recommendation: - Await pathology results. 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 No dysplasia is seen. CR-PX 03/17/12 AAS 03/17/12 Verified by: Karlene HARVEY, Joana Clark Pathologist (Electronic Signature) Assessment and Plan: Patient with ulcerative colitis, recent flex-sigmoidoscopy showed mild left sided colitis. See above. We discussed optimizing mesalamine both oral and topical therapy. If no significant improvement in sx's, we'll consider using immunomodulator. We reviewed specifics on what we know about side-effects of thiopurines (azathioprine, 6-mercaptopurine). Once induced into remission, approximately 2/3rds of patients who receive thiopurines will remain in a long-term remission. Possible adverse events reviewed include: pancreatitis (3%), serious infections, bone marrow suppression, liver toxicity, rash and nausea. The rate of lymphoma is approximately 4-10 per 10,000 versus about 2 per 10,000 in the general population. We also discussed the importance of monitoring protocols with routine lab work. We discussed obtaining TPMT enzyme testing today in anticipation of starting this therapy. We discussed slowly weaning down prednisone since he did not find significant improvement in sx's. In addition, given right thumb lesion, and his diabetes, it might worsened his blood sugar levels and therefore prolonged healing time. - labs today including TSH (excessive sweating) and TPMT enzyme testing - slowly wean off prednisone 15 mg daily x 2 weeks; 10 mg daily x 2 weeks; 5 mg daily x 2 weeks; 5 mg every other day x 2 weeks then off - increase Rowasa enema once every night for now, Rx refilled - Restart Sulfasalazine 4 pills twice daily, - continue folic acid 1 tab once daily - try imodium as needed for diarrrhea - call if any increased in GI sx's - He will follow up with his PCP on his diabetes management and right thumb lesion. RTC with Dr. Barlow end of March as previously scheduled CC: MORE NAYLOR MD [address] [facility] [address] documented in this encounter Plan of Treatment Upcoming Encounters Date Type Department Care Team (Late st Contact Info) Description 08/15/2024 9:00 AM EDT Office [place] [phone] Dion Barlow MD [facility] [place] [address] 09/01/2024 11:20 AM EDT Office Visit Dermatology at [address] [address] Gómez Mercer MD [facility] DR EDDIE SANCHEZ[place] [address] 09/21/2024 2:45 PM EDT Office Visit [place] [address] Trung Hoyos MD [facility] [place] [address] documented as of this encounter Procedures Procedure Name Priority Date/Time Associated Diagnosis Comments CMP W/FASTING GLUCOSE Routine 04/02/2012 1:39 PM EDT UC (ulcerative colitis) DIFFERENTIAL, AUTOMATED Routine 04/02/2012 1:39 PM EDT TPMT ENZYME Routine 04/02/2012 1:39 PM EDT UC (ulcerative colitis) SEDIMENTATION RATE Routine 04/02/2012 1: 39 PM EDT UC (ulcerative colitis) CBC (WITH DIFF) Routine 04/02/2012 1:39 PM EDT UC (ulcerative colitis) CRP, CARDIAC RISK (HS CRP) Routine 04/02/2012 1:39 PM EDT UC (ulcerative colitis) LIPASE Routine 04/02/2012 1:39 PM EDT UC (ulcerative colitis) AMYLASE Routine 04/02/2012 1:39 PM EDT UC (ulcerative colitis) documented in this encounter Results * (ABNORMAL) TSH (09/20/2012 11:17 AM EDT) Thyroid Stimulating Hormone 4.77(H) 0.27 - 4.20 mcIU/mL CERNER MILLENNIUM Blood specimen (specimen) 09/20/2012 11:17 AM EDT 09/20/2012 11:23 AM EDT Narrative Resulting Agency Comment Spec In Lab L Karthik Barlow MD CHEMISTRY ORDERABLES CERNER MILLENNIUM * (ABNORMAL) DIFFERENTIAL, AUTOMATED (04/02/2012 1:39 PM EDT) Neutrophil % 82.7(H) 34.0 - 71.0 % CERNER MILLENNIUM Neutrophil Absolute 6.59(H) 1.50 - 6.30 x10(3)/mc L CERNER MILLENNIUM Lymph % 14.1(L) 19.0 - 53.0 % CERNER MILLENNIUM Lymphocytes Abs 1.1 1.0 - 3.6 x10(3)/mc L CERNER MILLENNIUM Monocyte % 2.8(L) 4.0 - 13.0 % CERNER MILLENNIUM Monocyte Abs 0.2 0.2 - 1.0 x10(3)/mc L CERNER MILLENNIUM Eos % 0.0 0.0 - 7.0 % CERNER MILLENNIUM Eosinophils Abs 0.0 0.0 - 0.5 x10(3)/mc L CERNER MILLENNIUM Basophil % 0.1 0.0 - 2.0 % CERNER MILLENNIUM Baso Absolute 0.0 0.0 - 0.2 x10(3)/mc L CERNER MILLENNIUM Immature Gran % 0.30 0.00 - 0.66 % CERNER MILLENNIUM Comment: Immature granulocytes(IG's)percentage and absolute count will include metamyelocytes, myelocytes, and promyelocytes. Blood smears from CBCs yielding IG's will be scanned manually for concordance. If this scan disagrees with the automated IG or if promyelocytes are noted, a manual differential will be performed. Immature Gran Absolute 0.02 0.00 - 0.05 x10(3)/mc L CERNER MILLENNIUM Blood specimen (specimen) 04/02/2012 1:39 PM EDT 04/02/2012 1:48 PM EDT L Karthik Barlow MD HEMATOLOGY ORDERABLE S Performing Organization Address [facility] Co de Phone Number DURGA FREDERICK * TPMT Enzyme (04/02/2012 1:39 PM EDT) TPMT Enzyme See Note [facility] MILLENNIUM Comment: Normal ??Activity. Please see scanned report in Chart Review under the Non-DH Laboratory Heading. Blood specimen (specimen) 04/02/2012 1:39 PM EDT 04/02/2012 2:50 PM EDT Narrative Resulting Agency Comment Spec In Lab L Karthik Barlow MD CHEMISTRY ORDERABLES Performing Organization Address [facility] Co de Phone Number DURGA ORDOÑEZUNITED [facility] * Lipase (04/02/2012 1:39 PM EDT) Lipase 23 0 - 60 unit/L [facility] TIAGOENNIUM Blood specimen (specimen) 04/02/2012 1:39 PM EDT 04/02/2012 1:48 PM EDT Narrative Resulting Agency Comment Spec In Lab L Karthik Barlow MD CHEMISTRY ORDERABLES Performing Organization Address [facility] Co de Phone Number DURGA FREDERICK * Amylase (04/02/2012 1:39 PM EDT) Amylase 32 28 - 100 unit/L DURGA FREDERICK Blood specimen (specimen) 04/02/2012 1:39 PM EDT 04/02/2012 1:48 PM EDT Narrative Resulting Agency Comment Spec In Lab L Karthik Barlow MD CHEMISTRY ORDERABLES Performing Organization Address [facility] de Phone Number DURGA FREDERICK * High Sensitivity CRP (04/02/2012 1:39 PM EDT) Pathologist [facility] C-Reactive Protein High Sensitivity 3.1 mg/L DURGA FREDERICK Comment: Interpretations: 1) For cardiac risk assessment, [...] Cardiovascular Disease. ??Circulation 2003; 107:499-511 2. Bandar CEDENO. ??Clinical applications of C-reactive protein for cardiovascular disease detection and prevention. ??Circulation 2003; 107:363-369 Blood specimen (specimen) 04/02/2012 1:39 PM EDT 04/02/2012 1:48 PM EDT Narrative Resulting Agency Comment Spec In Lab L Karthik Barlow MD CHEMISTRY ORDERABLES CERNER TIAGOENNIUM * Sedimentation rate (04/02/2012 1:39 PM EDT) Sedimentation Rate Automated 12 0 - 15 mm/hr CERNER MILLENNIUM Blood specimen (specimen) 04/02/2012 1:39 PM EDT 04/02/2012 1:48 PM EDT Narrative Resulting Agency Comment Spec In Lab L Karthik Barlow MD HEMATOLOGY ORDERABLE S Performing Organization Address City/[facility]/ZIP Co de Phone Number CERNER TIAGOENNIUM * (ABNORMAL) CMP w/fasting Glucose (04/02/2012 1:39 PM EDT) Glucose Fasting 158(H) 65 - 99 mg/dL CERNER MILLENNIUM Comment: ?Fasting* Glucose Interpretive Criteria Normal ?65-99 [...] of Diabetes Mellitus, Position Statement from the [place] [employer]. ??Diabetes Care, Volume 33, Supplement 1, Nov 2009 Blood Urea Nitrogen 14 10 - 20 mg/dL CERNER MILLENNIUM Creatinine 0.88 0.80 - 1.50 mg/dL CERNER MILLENNIUM Sodium 139 135 - 145 mmol/L CERNER MILLENNIUM Potassium 4.2 3.5 - 5.0 mmol/L CERNER MILLENNIUM Comment: Please note: ??Patients with WBC >100,000 may have falsely elevated Potassium levels. ??For accurate Potassium quantification in these patients send serum separator tube (gold top) for subsequent determinations. ??Contact the Clinical Chemistry Laboratory if there are any questions. Chloride 102 98 - 107 mmol/L CERNER MILLENNIUM Carbon Dioxide 26 22 - 31 mmol/L CERNER MILLENNIUM Anion Gap 11 5 - 15 mmol/L CERNER MILLENNIUM Calcium 9.8 8.5 - 10.5 mg/dL CERNER MILLENNIUM Protein, Total 8.0 6.4 - 8.3 gm/dL CERNER MILLENNIUM Albumin 4.8 3.2 - 5.2 gm/dL CERNER MILLENNIUM Aspartate Aminotransferase 16 0 - 39 unit/L CERNER MILLENNIUM Alanine Aminotransferase 29 0 - 55 unit/L CERNER MILLENNIUM Alkaline Phosphatase 57 40 - 120 unit/L CERNER MILLENNIUM Bilirubin, [...] J Am Soc Nephrol;6:1963-72. Blood specimen (specimen) 04/02/2012 1:39 PM EDT 04/02/2012 1:48 PM EDT Narrative Resulting Agency Comment Spec In Lab L Karthik Barlow MD CHEMISTRY ORDERABLES [facility] TIAGOENNIUM * (ABNORMAL) CBC (with Diff) (04/02/2012 1:39 PM EDT) White Blood Cell 8.0 4.0 - 10.0 x10(3)/mc L CERNER MILLENNIUM Red Blood Cell 4.29(L) 4.63 - 6.08 x10(6)/mc L CERNER MILLENNIUM Hemoglobin 14.2 13.7 - 17.5 gm/dL CERNER MILLENNIUM Hematocrit 41.2 40.0 - 51.0 % CERNER MILLENNIUM Mean Cell Volume 96.0(H) 79.0 - 92.0 fL CERNER MILLENNIUM Mean Cell Hemoglobin 33.1(H) 25.6 - 32.2 pg CERNER MILLENNIUM Mean Cell Hemoglobin Concentration 34.5 32.0 - 36.5 gm/dL CERNER MILLENNIUM Platelet 231 145 - 370 x10(3)/mc L CERNER MILLENNIUM RDW Standard Deviation 44.7 35.0 - 46.0 fL CERNER MILLENNIUM RDW coefficient of variation 13.0 10.9 - 14.4 % CERNER MILLENNIUM Mean Platelet Volume 11.1 9.0 - 12.0 fL DURGA FREDERICK Blood specimen (specimen) 04/02/2012 1:39 PM EDT 04/02/2012 1:48 PM EDT Narrative Resulting Agency Comment Spec In Lab L Karthik Barlow MD HEMATOLOGY ORDERABLE S DURGA FREDERICK documented in this encounter Visit Diagnoses Diagnosis UC (ulcerative colitis)- Primary Ulcerative colitis, unspecified documented in this encounter Care Teams Repair Miller Relationship Specialty Start Date End Date More Naylor MD [address] [place] [address] PCP - General 10/01/11 02/13/21 documented as of this encounter
--- OUTSIDE RECORDS SUMMARY | 2024-06-29 16:07 | XMS_ITS | Encounter Summary ---
Author Organization [facility] [place] [address] Care Team Providers Care Sales And Marketing Administrator Name Role Phone Maximilian Fall MD Primary Care Provider [phone] Encounter Details Date Type Department Care Team (Late st Contact Info) Description 03/02/2012 External Results [place] [phone] Dion Barlow MD [facility] [place] [address] Social History Tobacco Use Types Packs/Day Years [...] 9:00 AM EDT Office [place] [phone] Dion Barlow MD [facility] [place] [address] 09/01/2024 11:20 AM EDT Office Visit Dermatology at [facility] [address] [place] [address] Gómez Mercer MD [facility] [address]-[place] [address] 09/21/2024 2:45 PM EDT Office Visit [facility] and Sp[facility] Center at [facility] [place] [address] Trung Hoyos MD [facility] PAIN [place] [address] documented as of this encounter Procedures Procedure Name Priority Date/Time Associated Diagnosis Comments EXTERNAL LAB RESULTS Routine 03/02/2012 documented in this encounter Results * External Lab Results (03/02/2012) Stool specimen (specimen) 03/02/2012 L Karthik Barlow MD CHEMISTRY ORDERABLES documented in this encounter Visit Diagnoses Not on filedocumented in this encounter Care Teams Sales And Marketing Administrator Relationship Specialty Start Date End Date Maximilian Fall MD [address] [place] [address] PCP - General 10/01/11 02/13/21 documented as of this encounter
--- OUTSIDE RECORDS SUMMARY | 2024-06-29 16:07 | XMS_ITS | Encounter Summary ---
Author Organization [facility] [place] [address] Care Team Providers Care Cv Tech Name Role Phone Maximilian Fall MD Primary Care Provider [phone] Encounter Details Date Type Department Care Team (Late st Contact Info) Description 03/02/2012 External Results [place] [phone] Dion Barlow MD [facility] [place] [address] Social History Tobacco Use Types Packs/Day Years [...] AM EDT Office Visit [place] [phone] Dion Barlow MD [facility] [place] [address] 09/01/2024 11:20 AM EDT Office Visit Dermatology at [facility] [address] [place] [address] Gómez Mercer MD [facility] DR ED[place] [place] [address] 09/21/2024 2:45 PM EDT Office Visit Pain and Spine Center at [facility] [place] [address] Trung Hoyos MD [facility] [place] [address] documented as of this encounter Procedures Procedure Name Priority Date/Time Associated Diagnosis Comments EXTERNAL LAB RESULTS Routine 03/04/2012 documented in this encounter Results * External Lab Results (03/04/2012) Blood specimen (specimen) L Karthik Barlow MD CHEMISTRY ORDERABLES documented in this encounter Visit Diagnoses Not on filedocumented in this encounter Care Teams Cv Tech Relationship Specialty Start Date End Date Maximilian Fall MD [address] [place] [address] PCP - General 10/01/11 02/13/21 documented as of this encounter
--- OUTSIDE RECORDS SUMMARY | 2024-06-29 16:07 | XMS_ITS | Encounter Summary ---
Author Organization [facility] [place] [address] Care Team Providers Care Pressure Sealer And Tester Name Role Phone Maximilian Fall MD Primary Care Provider [phone] Encounter Details Date Type Department Care Team (Late st Contact Info) Description 03/16/2012 Orders [place] [phone] Dion Barlow MD [facility] [place] [address] Ulcerative colitis (Primary Dx) Social History Tobacco [...] 9:00 AM EDT Office [place] [phone] Dion Barlow MD [facility] [place] [address] 09/01/2024 11:20 AM EDT Office Visit Dermatology at [facility] [address] [place] [address] Gómez Mercer MD [facility] DR EDD[address] [place] [address] 09/21/2024 2:45 PM EDT Office Visit Pain and Sp[facility] Center at [facility] [place] [address] Trung Hoyos MD [facility] [place] [address] documented as of this encounter Visit Diagnoses Diagnosis Ulcerative colitis- Primary Ulcerative colitis, unspecified documented in this encounter Care Teams Pressure Sealer And Tester Relationship Specialty Start Date End Date Maximilian Fall MD [address] [place] [address] PCP - General 10/01/11 02/13/21 documented as of this encounter
--- OUTSIDE RECORDS SUMMARY | 2024-06-29 16:07 | XMS_ITS | Encounter Summary ---
Author Organization [facility] [place] [address] Care Team Providers Care Skein Straightener Name Role Phone Maximilian Fall MD Primary Care Provider [phone] Reason for Visit * Reason Comments Research Merit UC screening v isit Encounter Details Date Type Department Care Team (Late st Contact Info) Description 03/02/2012 7:30 AM EDT Office Visit Gastroenterology at [facility] [place] [address] Mica Gore, [facility] [place] [address] Ulcerative colitis (Primary Dx) Social History Tobacco [...] Sign Reading Time Taken Comments Blood Pressure 140/92 03/02/2012 8:00 AM EDT Pulse 86 03/02/2012 8:00 AM EDT Temperature 36.1 ??C (97 ??F) 03/02/2012 8:00 AM EDT Respiratory Rate - - Oxygen Saturation - - Inhaled Oxygen Concentration - - Weight 113.4 kg (250 lb) 03/02/2012 8:00 AM EDT Height 193 cm (6' 4) 03/02/2012 8:00 AM EDT Body Mass Index 30.43 03/02/2012 8:00 AM EDT documented in this encounter Progress Notes * Mica Gore RN - 03/02/2012 2:19 PM EDT Study title: Randomized, double-blind, prospective trial investigating the efficacy of Methotrexatein induction and maintenance of steroid free remission in ulcerative colitis (Methotrexate ResponseIn Treatment of UC- Merit UC) Investigators:.Dr. Dion Barlow Informed consent for the above entitled study was reviewed with Mr. Rodriguez in detail. The details of the study, length of study, and risks were reviewed with . Upon review, Mr. Rodriguez verbalized adequate understanding of the protocol and signed the consent along with me. No study procedures were initiated prior to signing the consent. A copy was provided to Mr. Rodriguez, and the original consent will be kept with the study chart. Reviewed initial inclusion and exclusion, will continue to review medical history. Screened Mr. Rodriguez_following visit with Shan BOATENG. Study blood work was drawn without incident and stools were obtained and sent to Central lab for further processing. Schedule of event were reviewed with Mr. Rodrigeuz; He verbalized understanding of appointment dates and procedures and agrees to all. A/P: Review lab values with PI or Sub I. Will see Mr. Rodriguez in 1-2 weeks for week 0 visit/sigmoidoscopy visit. Encouraged Mr. Rodriguez to call with any questions/concerns. documented in this encounter Plan of Treatment Upcoming Encounters Date Type Department Care Team (Late st Contact Info) Description 08/15/2024 9:00 AM EDT Office [place] [address] Dion Barlow MD [facility] [place] [address] 09/01/2024 11:20 AM EDT Office Visit Dermatology at [facility] [address] [place] [phone] Gómez Mercer MD [facility] DR [place] [address] 09/21/2024 2:45 PM EDT Office Visit [place] [address] Trung Hoyos MD [facility] [address] documented as of this encounter Visit Diagnoses Diagnosis Ulcerative colitis- Primary Ulcerative colitis, unspecified documented in this encounter Care Teams Skein Straightener Relationship Specialty Start Date End Date Maximilian Fall MD [address] [place] [address] PCP - General 10/01/11 02/13/21 documented as of this encounter
--- OUTSIDE RECORDS SUMMARY | 2024-06-29 16:07 | XMS_ITS | Encounter Summary ---
Author Organization [facility] [place] [address] Care Team Providers Care Information Specialist Name Role Phone Maximilian Fall MD Primary Care Provider [phone] Encounter Details Date Type Department Care Team (Late st Contact Info) Description 11/27/2011 1:00 PM EST - 11/27/2011 1:45 PM EST Surgery [place] [address] Dino Osullivan MD [facility] [place] [address] COLONOSCOPY, DIAGNOSTIC (WRVU 3.26) Social History Tobacco [...] Sign Reading Time Taken Comments Blood Pressure 144/78 11/27/2011 2:03 PM EST Pulse 79 11/27/2011 2:03 PM EST Temperature 36.1 ??C (97 ??F) 11/27/2011 12:22 PM EST Respiratory Rate 16 11/27/2011 2:03 PM EST Oxygen Saturation 94% 11/27/2011 2:03 PM EST Inhaled Oxygen Concentration - - Weight 106.6 kg (235 lb) 11/27/2011 12:22 PM EST Height - - Body Mass Index 28.61 11/05/2011 1:57 PM EST documented in this encounter Discharge Instructions * Discharge Instructions* Kira Quan RN - 11/27/2011 2:37 PM EST Please call [phone], before 5pm with problems, questions or concerns, after 5pm call the Hospital at [phone] and ask to speak to the Ham Curer information systems administrator and the forge operator will contactthat person for you. Discharge instructions reviewed with patient who expresses understanding. * Patient Instructions* Dion Osullivan MD - 11/27/2011 1:07 PM EST Please see Recommendations in the Provation procedure report which is documented in the procedural note in E-DH. * Attachments The following attachments cannot be sent through Care Everywhere. * COLONOSCOPY: WHAT TO EXPECT AT HOME (AMHARIC) documented in this encounter Medications at Time of Discharge Medication Sig Dispensed Refills Start Date End Date omeprazole (PRILOSEC) 20 mg capsule Take 40 mg by mouth daily. sulfaSALAzine (AZULFIDINE) 500 mg tabletIndications:Ulce rative colitis Take 4 tablets by mouth 2 times daily for 90 days. 240 tablet 2 10/01/2011 12/30/2011 naproxen (NAPROSYN) 500 mg tablet Take 500 mg by mouth 2 times daily. 01/28/2012 MULTI-VITAMIN ORAL Take by mouth daily. 0 06/05/2014 ascorbic acid (VITAMIN C) 500 mg tablet Take 500 mg by mouth daily. 03/06/2014 mesalamine (ROWASA) 4 gram/[address] rectally as needed. 04/02/2012 aspirin 81 mg chewable tablet Take 81 mg by mouth daily. 01/28/2012 Mesalamine 800 mg TbEC Take 1.6 g by mouth 3 times daily. 01/28/2012 glyBURIDE (DIABETA) 5 mg tablet Take 5 mg by mouth daily. 03/06/2014 fluticasone (FLOVENT) 110 mcg/Actuation inhaler Inhale 2 puffs into the lungs 2 times daily. 05/03/2018 folic acid (FOLVITE) 1 mg tabletIndications:Ulce rative colitis Take 1 tablet by mouth daily. 120 tablet 6 10/01/2011 11/22/2012 mesalamine (ROWASA) 4 gram/60 mL enemaIndications:Ulcer ative colitis Place 60 mLs rectally every evening. 1800 mL 3 10/01/2011 01/28/2012 propranolol (INDERAL LA) 80 mg 24 hr capsule 80mg, PO, Once daily 01/15/2007 012 metFORMIN (GLUCOPHAGE) 500 mg tablet 500mg, PO, Twice daily 01/15/2007 05/11/2017 acetaminophen (TYLENOL) 325 mg tablet 01/15/2007 01/28/2012 bacitracin 500 unit/g ointment 01/15/2007 03/06/2014 documented as of this encounter H&P Notes * Dion Osullivan MD - 11/27/2011 1:04 PM EST INDICATION: Ulcerative colitis HISTORY: Please see my recent notes for details. No significant changes. Patient Active Problem List Diagnoses Code ??? Ulcerative colitis 556.9J ??? Diabetes mellitus 250.00A ??? Hearing loss 389.9AB ??? GERD (gastroesophageal reflux disease) 530.81S ??? Hydrocele 603.9F ??? Asthma 493.90AE No current facility-administered medications on file prior to encounter. Current outpatient prescriptions ordered prior to encounter Medication Sig Dispense Refill ??? omeprazole (PRILOSEC) 20 mg capsule Take 20 mg by mouth 2 times daily. ??? MULTI-VITAMIN ORAL Take by mouth daily. ??? ascorbic acid (VITAMIN C) 500 mg tablet Take 500 mg by mouth daily. ??? mesalamine (ROWASA) 4 gram/[address] rectally as needed. ??? Mesalamine 800 mg TbEC Take 1.6 g by mouth 3 times daily. ??? glyBURIDE (DIABETA) 5 mg tablet Take 5 mg by mouth daily. ??? fluticasone (FLOVENT) 110 mcg/Actuation inhaler Inhale 2 puffs into the lungs 2 times daily. ??? sulfaSALAzine (AZULFIDINE) 500 mg tablet Take 4 tablets by mouth 2 times daily for 90 days. 240tablet 2 ??? folic acid (FOLVITE) 1 mg tablet Take 1 tablet by mouth daily. 120 tablet 6 ??? propranolol (INDERAL LA) 80 mg 24 hr capsule 80mg, PO, Once daily ??? metFORMIN (GLUCOPHAGE) 500 mg tablet 500mg, PO, Twice daily ??? acetaminophen (TYLENOL) 325 mg tablet ??? bacitracin 500 unit/g ointment ??? naproxen (NAPROSYN) 500 mg tablet Take 500 mg by mouth 2 times daily. ??? aspirin 81 mg chewable tablet Take 81 mg by mouth daily. ??? mesalamine (ROWASA) 4 gram/[address] 60 mLs rectally every evening. 1800 mL 3 Allergies Allergen Reactions ??? Tetracycline Analogues ??? Erythromycin Base CIS - Unknown Patient Vitals in the past 8 hrs: BP Temp Temp src Pulse Resp SpO2 Weight 11/27/11 1222 155/85 mmHg 36.1 ??C (97 ??F) Oral 91 20 94 % 106.595 kg (235 lb) GEN: NAD HEENT: Airway examined, OP clear LUNGS: CTA Cor: Reg, no m/r/g Abd: Soft, NT/ND, active BS A/P Proceed with colonoscopy. Risks explained and consent signed. documented in this encounter Miscellaneous Notes * Miscellaneous - Provider, Scanning - 11/27/2011 9:25 PM EST * Miscellaneous - Provider, Scanning - 11/27/2011 5:16 PM EST * OR Attestation - Dion Osullivan MD - 11/27/2011 1:07 PM EST Attestation: Case Date: 11/27/2011 I performed this procedure without the involvement of a resident. Dion OSULLIVAN MD 11/27/2011 * Op Note - Dion Osullivan MD - 11/27/2011 1:06 PM EST [facility] [place] Operative Note Patient Name: Naya Rodriguez : [id number] MR#: [id number] Case Date: 11/27/2011 Surgeon: Surgeon(s) and Role: * Dion OSULLIVAN MD - Primary Please see the Provation procedure report in the Procedures tab in eDH. documented in this encounter Plan of Treatment Upcoming Encounters Date Type Department Care Team (Late st Contact Info) Description 08/15/2024 9:00 AM EDT Office [place] [phone] Dion Osullivan MD [facility] [place] [address] 09/01/2024 11:20 AM EDT Office Visit Dermatology [address] [place] [address] Gómez Mercer MD [facility] [address] [place] [address] 09/21/2024 2:45 PM EDT Office Visit [facility] [place] [phone] Trung Hoyos MD [facility] [place] [address] documented as of this encounter Procedures Procedure Name Priority Date/Time Associated Diagnosis Comments SURGICAL PATHOLOGY REPORT Routine 11/27/2011 4:38 PM EST SPECIMEN TO PATHOLOGY Routine 11/27/2011 1:53 PM EST SPECIMEN TO PATHOLOGY Routine 11/27/2011 1:53 PM EST SPECIMEN TO PATHOLOGY Routine 11/27/2011 1:53 PM EST COLONOSCOPY, DIAGNOSTIC (WRVU 3.26) 11/27/2011 1:08 PM EST Ulcerative colitis COLONOSCOPY Routine 11/27/2011 1:01 PM EST documented in this encounter Results * SURGICAL PATHOLOGY REPORT (11/27/2011 4:38 PM EST) Surgical Pathology Report ? [facility] ? Provider: ?? Dion OSULLIVAN ?Pt. Name: ?? NAYA RODRIGUEZ ? Acc #: ?[id number] ?Pt. ? Col Date: ?? 11/27/2011 ?/Sex: ?1950,(61 years),Male ? Rec Date: ?? 11/27/2011 ?LOC: ?4T ? SURGICAL PATHOLOGY ? ---Pathologic Diagnosis--- ? A - Right colon, biopsy: ? Colonic mucosa, negative for diagnostic abnormality. ? B - Left colon, biopsy: ? Patchy mildly active chronic colitis, negative for dysplasia. ? C - Transverse colon, polypectomy: ? Fragments of tubular adenoma. ? Patchy chronic inactive colitis, negative for dysplasia. ? CR-0, CR-PX ? 12/04/11 ? VMS ? 12/04/11 Verified by: ? Dilip Maria MD ? Pathologist ? (Electronic Signature) ? The attending pathologist whose signature appears on this report has ? reviewed all diagnostic slides and has edited the gross and/or ? microscopic portion of the report in rendering the final pathologic ? diagnosis. ? ---Microscopic Description--- ? Slides reviewed, microscopic description not recorded. ? ---Gross Description--- ? A - Labeled/Fixativ e: Mucosal biopsies R colon, formalin. ? Qty/Size/Weight : ?Six, ranging from 0.1 cm to 0.4 cm in ? greatest dimension. ? Tissue Description: ?? Soft, stephen tissues. ? Sections/Proces sing: ??(T2) ? B - Labeled/Fixativ e: Mucosal biopsies L colon, formalin. ? Qty/Size/Weight : ?Multiple, ranging from 0.1 cm to 0.4 cm in ? greatest dimension. ? Tissue Description: ?? Soft, stephen tissues. ? Sections/Proces sing: ??(T3) ? C - Labeled/Fixativ e: Polyp transverse colon, formalin. ? Qty/Size/Weight : ?Two, 0.3 x 0.2 x 0.2 cm and ? 1.5 x 0.3 x 0.2 cm. ? Tissue Description: ?? Stephen, rubbery mucosal polyp, the larger ? [facility] ? Provider: ?? Dion OSULLIVAN ?Pt. Name: ?? NAYA RODRIGUEZ ? Acc #: ?[id number] ?Pt. ? Col Date: ?? 11/27/2011 ?/Sex: ?1950,(61 years),Male ? Rec Date: ?? 11/27/2011 ?LOC: ?4T ? SURGICAL PATHOLOGY ? flattened and elongated. ? Sections/Proces sing: ??The base of the larger polyp is inked, ? serially sectioned and submitted as (C2-C3). ? (T3) ??vms/SHB ? ---Clinical Information--- ? Specimen Submitted: ? A - Mucosal biopsies-R colon ? B - Mucosal biopsies-L colon ? C - Polyp-transvers e colon ? Clinical History/Diagnos is: ? 61 YO with recent diagnosis of UC CERNER MILLENNIUM 11/27/2011 4:38 PM EST L Karthik Osullivan MD PATHOLOGY/CYTOLOGY O CEE Performing Organization Address [facility] de Phone Number CERGIOVANNI ORDOÑEZENNIUM * Specimen to Pathology (surgical or derm) (11/27/2011 1:53 PM EST) AP Specimen 11/27/2011 1:53 PM EST 11/27/2011 1:53 PM EST Narrative CERNER MILLENNIUM - 11/27/2011 1:53 PM EST Specimen requisition ordered. ??Separate Pathology report to follow L Karthik Osullivan MD PATHOLOGY/CYTOLOGY O CEE Performing Organization Address [facility] de Phone Number DURGA ORDOÑEZENNIUM * Specimen to Pathology (surgical or derm) (11/27/2011 1:53 PM EST) AP Specimen 11/27/2011 1:53 PM EST 11/27/2011 1:53 PM EST Narrative CERNER MILLENNIUM - 11/27/2011 1:53 PM EST Specimen requisition ordered. ??Separate Pathology report to follow L Karthik Osullivan MD PATHOLOGY/CYTOLOGY O CEE Performing Organization Address [facility]/ZIP Co de Phone Number [facility] * Specimen to Pathology (surgical or derm) (11/27/2011 1:53 PM EST) AP Specimen 11/27/2011 1:53 PM EST 11/27/2011 1:53 PM EST Narrative CERGIOVANNI MILLENNIUM - 11/27/2011 1:53 PM EST Specimen requisition ordered. ??Separate Pathology report to follow L Karthik Osullivan MD PATHOLOGY/CYTOLOGY O CEE Performing Organization Address [facility] Co de Phone Number [facility] * COLONOSCOPY (11/27/2011 1:01 PM EST) COLONOSCOPY [facility] Endoscopy Patient Name: Naya Rodriguez ? Procedure Date: 11/27/2011 01:01:31 PM ? N: [id number] ? Date of : 1950 ? Age: 61 ? Procedure: ? Colonoscopy Indications: ? Follow-up of left-sided chronic ? ulcerative colitis Providers: ? L Karthik Osullivan MD, Tyron Cee, ? RN, Qing López, Pole Climber Referring MD: ?Maximilian Fall MD Medicines: ? Midazolam 4 mg IV, Fentanyl 250 ? micrograms IV Complications: ? No immediate complications Procedure: ? Pre-Anesthesia Assessment: ? - Prior [...] bowel preparation was good. ? Findings: ? The perianal and digital rectal examinations were ? normal. There was a short segment of erythema, ? pinpoint erosions, and congestion in the sigmoid from ? 25-20 cm. Except for a small patch around the ? appendix, there was no other signs of active colitis. ? Biopsies were taken from the R colon and the L colon ? and sent to pathology.Multiple medium-mouthed ? diverticula were found in the sigmoid colon. The ? terminal ileum appeared normal. A sessile polyp was ? found in the mid transverse colon. The polyp was 4 mm ? in size. The polyp was removed with a cold snare. ? Resection and retrieval were complete. ? Impression: ?- Mildly active colitis in the ? sigmoid colon with a small cecal ? patch. Overall, there was little ? active colitis, and I suspect that ? the lack of distal involvement is due ? to recent topical rectal therapies. ? - Diverticulosis sigmoid colon. ? - The examined portion of the ileum ? was normal. ? - One 4 mm polyp in the mid ? transverse colon. Resected and ? retrieved. Recommendation: ?- Continue current medications. ? - Add 1-2 tablets of Imodium each ? morning to help control diarrhea. ? - Follow-up on clinic with Dr. Osullivan. ? _ L Karthik Osullivan MD Signed Date: 11/27/2011 01:58:46 PM Number of Addenda: 0 Note initiated on 11/27/2011 01:01:31 PM PROVATION 11/27/2011 1:01 PM EST Unknown GENERAL SURGICAL ORD ERABLES PROVATION documented in this encounter Visit Diagnoses Diagnosis Ulcerative colitis Ulcerative colitis, unspecified documented in this encounter Administered Medications Inactive Administered Medications - up to 3 most recent administrations Medication Order MAR Action Action Date Dose Rate Site fentaNYL 50mcg/mL injection ONCE PRN, Starting on Tresa 11/27/11 at 1308, Until Tresa 11/27/11 at 1701, Pain, Intra-Operative (Intra-Procedure), Routine Given 11/27/2011 1:30 PM EST 50 mcg Given 11/27/2011 1:20 PM EST 50 mcg Given 11/27/2011 1:11 PM EST 50 mcg midazolam (VERSED) injection ONCE PRN, Starting on Tresa 11/27/11 at 1308, Until Tresa 11/27/11 at 1701, Sleep, Intra-Operative (Intra-Procedure), Routine Given 11/27/2011 1:20 PM EST 1 mg Given 11/27/2011 1:11 PM EST 1 mg Given 11/27/2011 1:08 PM EST 2 mg sodium chloride 0.9% infusion 50 mL/hr, Intravenous, CONTINUOUS, Starting on Tresa 11/27/11 at 1230, Until Tresa 11/27/11 at 1701, Endoscopy (Day of Procedure) New Bag 11/27/2011 12:30 PM EST 50 mL/hr 50 mL/hr documented in this encounter Active and Recently Administered Medications Times are shown in EST. Continuous Medication Order 11/25/2011 11/26/2011 11/27/2011 sodium chloride 0.9% infusion (CANCELED) 50 mL/hr, Intravenous, CONTINUOUS, Starting on Tresa 112 at 1230, Until Tresa 1 at 1701, Endoscopy (Day of Procedure) 1230 (New Bag - Prov ider: Madalyn Harley RN) PRN Medication Order 11/25/2011 11/26/2011 11/27/2011 fentaNYL 50mcg/mL injection (CANCELED) ONCE PRN, Starting on Tresa 1 at 1308, Until Tresa 1 at 1701, Pain, Intra-Operative (Intra-Procedure), Routine 1308 (Given - Provid er: Tyron Cee RN - Comment: start moderate sedation)1311 (Given - Provider: Tyron Cee RN - Comment: awake after 1st dose and 3 minutes)1320 (Given - Provider: Tyron Cee RN - Comment: grimmacing and muscle tension)1330 (Given - Provider: Tyron Cee RN - Comment: grimmacing with muscle tension) midazolam (VERSED) injection (CANCELED) ONCE PRN, Starting on Tresa 1 at 1308, Until Tresa 1 at 1701, Sleep, Intra-Operative (Intra-Procedure), Routine 1308 (Given - Provid er: Tyron Cee RN - Comment: see fentanyl same time)1311 (Given - Provider: Tyron Cee RN - Comment: see fentanyl same time)1320 (Given - Provider: Tyron Cee RN - Comment: see fentanyl same time) documented in this encounter Care Teams Information Specialist Relationship Specialty Start Date End Date Maximilian Fall MD [address] [place] [address] PCP - General 10/01/11 02/13/21 documented as of this encounter
--- OUTSIDE RECORDS SUMMARY | 2024-06-29 16:07 | XMS_ITS | Encounter Summary ---
Author Organization [facility] [place] [address] Care Team Providers Care Fios Line Installer Name Role Phone Maximilian Fall MD Primary Care Provider [phone] Encounter Details Date Type Department Care Team (Latest Contact Info) Description 03/16/2012 12:32 PM EDT - 03/16/2012 3:00 PM EDT Hospital En[place] [address] Enrico Tellez MD [facility] [place] [address] Discharge Disposition: Home Social History Tobacco Use [...] please contact your M. D. Please call [phone] BEFORE 5PM with any questions or concerns, AFTER 5PM call [phone] andask to speak to the Teacher Kindergarten risk control specialist. * Patient Instructions* Enrico Tellez MD - 03/16/2012 1:27 PM EDT Please see Recommendations in the Provation procedure report which is documented in the procedural note in E-DH. * Attachments The following attachments cannot be sent through Care Everywhere. * SIGMOIDOSCOPY: WHAT TO EXPECT AT HOME (FRENCH) documented in this encounter Medications at Time [...] 9:00 AM EDT Office [place] [address] Dion Barlow MD [facility] [place] [address] 09/01/2024 11:20 AM EDT Office Visit Dermatology at [facility] [address] [place] [address] Gómez Mercer MD [facility] DR EDDIE [place] [address] 09/21/2024 2:45 PM EDT Office Visit [place] [address] Trung Hoyos MD [facility] [place] [address] documented as of this encounter Procedures Procedure Name Priority Date/Time Associated Diagnosis Comments SURGICAL PATHOLOGY REPORT Routine 03/16/2012 4:52 PM EDT SPECIMEN TO PATHOLOGY Routine 03/16/2012 2:09 PM EDT FLEXIBLE SIGMOIDOSCOPY (WRVU 0.84) 03/16/2012 1:27 PM EDT study patient POCT GLUCOSE Routine 03/16/2012 1:16 PM EDT documented in this encounter Results * SURGICAL PATHOLOGY REPORT (03/16/2012 4:52 PM EDT) Surgical Pathology Report ? [facility] ? Provider: ?? ENRICO TELLEZ ?Pt. Name: ?? NAYA RODRIGUEZ ? Acc #: ?[id number] ?Pt. ? Col Date: ?? 03/16/2012 ? [...] Clinical History/Diagnosis: ? Patient with mild proctitis [facility] 03/16/2012 4:52 PM EDT Enrico Tellez MD PATHOLOGY/CYTOLOGY O CEE Performing Organization Address [facility]/ZIP Co de Phone Number DURGA FREDERICK * Specimen to Pathology (surgical or derm) (03/16/2012 2:09 PM EDT) AP Specimen 03/16/2012 2:09 PM EDT 03/16/2012 2:09 PM EDT Narrative JO-ANNGIOVANNI FREDERICK - 03/16/2012 2:09 PM EDT Specimen requisition ordered. ??Separate Pathology report to follow Enrico Tellez MD PATHOLOGY/CYTOLOGY O CEE Performing Organization Address [facility] Co de Phone Number DURGA FREDERICK * POCT GLUCOSE LAB USE ONLY (03/16/2012 1:16 PM EDT) Glucose, POC 116 60 - 199 mg/dL DURGA FREDERICK Comment: Supplemental ranges: <110 mg/dL before meals <200 mg/dL all other times of the day Blood specimen (specimen) 03/16/2012 1:16 PM EDT 03/16/2012 1:16 PM EDT Enrico Tellez MD POINT OF CARE TEST O CEE Performing Organization Address [facility] Co de Phone Number DURGA FREDERICK documented in this encounter Visit Diagnoses Not on filedocumented in this encounter Administered Medications Inactive Administered Medications - up to 3 most recent administrations Medication Order MAR Action Action Date Dose Rate Site sodium chloride 0.9% infusion 30 mL/hr, Intravenous, CONTINUOUS, Starting on 03/16/12 at 1315, Until Thu03/16/12 at 1854, Endoscopy (Day of Procedure) New Bag 03/16/2012 1:00 PM EDT 30 mL/hr 30 mL/hr documented in this encounter Active and Recently Administered Medications Times are shown in EDT. Continuous Medication Order 03/14/2012 03/15/2012 03/16/2012 sodium chloride 0.9% infusion (CANCELED) 30 mL/hr, Intravenous, CONTINUOUS, Starting on 03/16/12 at 1315, Until Tue /24/12 at 1854, Endoscopy (Day of Procedure) 1300 (New Bag - Prov ider: Megan Jimenez RN) PRN Medication Order 03/14/2012 03/15/2012 03/16/2012 fentaNYL 50mcg/mL injection (CANCELED) ONCE PRN, Starting on Thu03/16/12 at 1334, Until Thu03/16/12 at 1854, Pain, Intra-Operative (Intra-Procedure), Routine 1334 (Given - Provid er: April Archibald RN)1337 (Given - Provider: April Archibald RN) midazolam (VERSED) injection (CANCELED) ONCE PRN, Starting on Thu03/16/12 at 1334, Until Thu03/16/12 at 1854, Sleep, Intra-Operative (Intra-Procedure), Routine 1334 (Given - Provid er: April Archibald RN)1337 (Given - Provider: April Archibald RN)1348 (Given - Provider: April Archibald RN) documented in this encounter Care Teams Fios Line Installer Relationship Specialty Start Date End Date Maximilian Fall MD [address] [place] [address] PCP - General 10/01/11 02/13/21 documented as of this encounter
--- OUTSIDE RECORDS SUMMARY | 2024-06-29 16:07 | XMS_ITS | Encounter Summary ---
Author Organization [facility] [place] [address] Care Team Providers Care Lpn Care Manager Name Role Phone More Naylor MD Primary Care Provider [phone] Reason for Visit * Reason Comments Follow-up Encounter Details Date Type Department Care Team (Late st Contact Info) Description 01/28/2012 3:00 PM EST Follow-Up [place] [phone] Dion Barlow MD [facility] [place] [address] Ulcerative colitis (Primary Dx) Discharge Disposition: Home [...] Sign Reading Time Taken Comments Blood Pressure 136/98 01/28/2012 2:53 PM EST Pulse 92 01/28/2012 2:53 PM EST Temperature - - Respiratory Rate - - Oxygen Saturation - - Inhaled Oxygen Concentration - - Weight 112.9 kg (249 lb) 01/28/2012 2:53 PM EST Height 193 cm (6' 4) 01/28/2012 2:53 PM EST Body Mass Index 30.31 01/28/2012 2:53 PM EST documented in this encounter Patient Instructions * Patient Instructions* Dion Barlow MD - 01/28/2012 3:41 PM EST 1. Continue sulfasalazine and Rowasa enemas every other night. 2. Hold the imodium for now. 3. I will have our research team contact you about possibly considering a trial of methotrexate. 4. Follow-up with me in the office in 12 weeks or sooner of symptoms worsen. documented in this encounter Progress Notes * Dion Barlow MD - 01/28/2012 3:23 PM EST Patient Active Problem List Diagnoses ??? Ulcerative colitis Colonoscopy 04/08/10 (Dr. Gomes [facility]) - inflammation only within the rectum and sigmoid; extent of the exam was to the hepatic flexure; biopsies proximal to the sigmoid nl Repeat exam 11/27/11 ([facility] [...] Hydrocele ??? Asthma Subjective: HPI Mr. Rodriguez comes back to see me for the first time since his colonoscopy in early [facility]. At that time, he had a patch of mildly active disease in the sigmoid and a small cecal patch. Biopsies showed active L-sided disease and a tubular adenoma in the transverse colon. He reports that he continues to have diarrhea. He takes one teaspoon of imodium every day. He is taking 4 tablet (2 g) of sulfasalazine twice per day. He also taking the enemas every other day. He ishaving 5-6 loose, urgent stools per day each morning. He has not seen any blood. He has incontinence about twice per week. He has some lower abdominal crampy pain that is associated with stooling. There has been no apthous stomatitis, episcleritis, uveitis, inflammatory arthritis, pyoderma gangrenosum, erythema nodosum, or perianal lesions. Review of Systems Constitutional: Negative for fever and unexpected weight change. HENT: Negative for mouth sores. Eyes: Negative for pain and redness. Respiratory: Negative for cough and shortness of breath. Cardiovascular: Negative for chest pain and palpitations. Gastrointestinal: Positive for abdominal pain and diarrhea. Negative for nausea, vomiting, constipation and blood in stool. Genitourinary: Negative for dysuria. Musculoskeletal: Negative for joint swelling. Skin: Negative for [...] dry. No rash noted. Assessment and Plan: Despite sulfasalazine and Rowasa, Mr. Rodriguez continues to be symptomatic. The addition of imodium helped symptoms slightly, but clearly he still has active disease. I think he will need escalation oftherapy to get symptoms under better control. We discussed adding prednisone and then perhaps adding methotrexate in the context of clinical trial currently undergoing enrollment. He expressed interest, and, therefore, I will have our clinical research team contact him with more information. In themeantime, he will continue his current therapies. 1. Continue sulfasalazine and Rowasa enemas every other night. 2. Hold the imodium for now. 3. I will have our research team contact you about possibly considering a trial of methotrexate. 4. Follow-up with me in the office in 12 weeks or sooner of symptoms worsen. Davina Barlow MD Dock Associateinspector repairer [facility]stone Section of Gastroenterology [place] [address] CC: MORE NAYLOR MD [address] [facility] [address] documented in this encounter Plan of Treatment Upcoming Encounters Date Type Department Care Team (Late st Contact Info) Description 08/15/2024 9:00 AM EDT Office Visit [place] [phone] Dion Barlow MD [facility] [place] [address] 09/01/2024 11:20 AM EDT Office Visit Dermatology at [place] [address] [place] [phone] Gómez Mercer MD [facility][1]-[place] [address] 09/21/2024 2:45 PM EDT Office Visit [facility] [place] [phone] Trung Hoyos MD [facility] [place] [address] documented as of this encounter Visit Diagnoses Diagnosis Ulcerative colitis- Primary Ulcerative colitis, unspecified documented in this encounter Care Teams Lpn Care Manager Relationship Specialty Start Date End Date More Naylor MD [address] [place], [place] [id number] PCP - General 10/01/11 02/13/21 documented as of this encounter
--- OUTSIDE RECORDS SUMMARY | 2024-06-29 16:07 | XMS_ITS | Encounter Summary ---
Author Organization [facility] [place] [address] Care Team Providers Care Curb Hop Name Role Phone Maximilian Fall MD Primary Care Provider [phone] Encounter Details Date Type Department Care Team (Late st Contact Info) Description 03/02/2012 Orders [place] [phone] Dion Barlow MD [facility] [place] [address] Exam for clinical research (Primary Dx) Social History Tobacco Use Types [...] EDT Office [place] [phone] Dion Barlow MD [facility] [place] [address] 09/01/2024 11:20 AM EDT Office Visit Dermatology at [facility] [address] [place] [address] Gómez Mercer MD [facility] DR [facility] [address] 09/21/2024 2:45 PM EDT Office Visit [facility] and Sp[facility] Center at [facility] [place] [address] Trung Hoyos MD [facility] [place] [address] documented as of this encounter Results * XR chest routine PA & lateral (03/02/2012 9:37 AM EDT) Anatomical Region Laterality Modality Chest N/A Radiographic Karime ging 03/02/2012 9:37 AM EDT Impressions 03/02/2012 5:46 PM EDT IMPRESSION: Normal chest radiograph. Narrative 03/02/2012 5:46 PM EDT TWO-VIEW CHEST: INDICATION: ??Baseline for research study. TECHNIQUE: ??PA and lateral views of the chest. COMPARISON: ??01/19/07. FINDINGS: ??The lungs appear clear. ??The heart, mediastinum, otis, pulmonary vessels, and pleura are within normal limits. ??No significant osseous findings. Procedure Note Nery Montes MD - 03/02/2012 TWO-VIEW CHEST: INDICATION: Baseline for research study. TECHNIQUE: PA and lateral views of the chest. COMPARISON: 01/19/07. FINDINGS: The lungs appear clear. The heart, mediastinum, otis,pulmonary vessels, and pleura are within normal limits. No significant osseousfindings. IMPRESSION IMPRESSION: Normal chest radiograph. L Karthik Barlow MD IMG DX ORDERABLES documented in this encounter Visit Diagnoses Diagnosis Exam for clinical research- Primary Examination of participant in clinical trial Exam for clinical research Examination of participant in clinical trial documented in this encounter Care Teams Curb Hop Relationship Specialty Start Date End Date Maximilian Fall MD [address] [place] [address] [address] [place] [address] PCP - General 10/01/11 02/13/21 documented as of this encounter
--- OUTSIDE RECORDS SUMMARY | 2024-06-29 16:07 | XMS_ITS | Encounter Summary ---
Author Organization [facility] Address [facility] [place] [address] Care Team Providers Care Distillery Laborer Name Role Phone Maximilian Fall MD Primary Care Provider [phone] Encounter Details Date Type Department Care Team (Latest Contact Info) Description 03/02/2012 9:31 AM EDT - 03/02/2012 11:59 PM EDT Hospital Encounter XRay at [address] [place] [address] CLINIC, Dion Edmonds MD [facility] [place] [address] Exam for clinical research Discharge Disposition: Home Social History Tobacco Use [...] capsule Take 40 mg by mouth daily. acetaminophen (TYLENOL) 500 mg tablet Take 500 [...] 01/15/2007 03/06/2014 documented as of this encounter Plan of Treatment Upcoming Encounters Date Type Department Care Team (Late st Contact Info) Description 08/15/2024 9:00 AM EDT Office [place] [address] Dion Barlow MD [facility] [place] [address] 09/01/2024 11:20 AM EDT Office Visit Dermatology at [address] [address] Gómez Mercer MD [facility] [place] [address] 09/21/2024 2:45 PM EDT Office Visit [place] [phone] Trung Hoyos MD [facility] [place] [address] documented as of this encounter Procedures Procedure Name Priority Date/Time Associated Diagnosis Comments XR CHEST PA AND LATERAL Routine 03/02/2012 9:37 AM EDT Exam for clinical research documented in this encounter Results * XR chest routine [...] encounter Visit Diagnoses Diagnosis Exam for clinical research Examination of participant in clinical trial documented in this encounter Care Teams Distillery Laborer Relationship Specialty Start Date End Date Maximilian Fall MD [address] [place] [address] PCP - General 10/01/11 02/13/21 documented as of this encounter
--- OUTSIDE RECORDS SUMMARY | 2024-06-29 16:07 | XMS_ITS | Encounter Summary ---
Author Organization [facility] [place] [address] Care Team Providers Care Braille Proofreader Name Role Phone Maximilian Fall MD Primary Care Provider [phone] Encounter Details Date Type Department Care Team (Latest Contact Info) Description 11/27/2011 11:49 AM EST - 11/27/2011 2:45 PM EST Hospital En[place] [address] Dion Osullivan MD [facility] [place] [address] Discharge Disposition: Home Social History Tobacco Use [...] - 11/27/2011 2:37 PM EST Please call [phone], before 5pm with problems, questions or concerns, after 5pm call the Hospital at [phone] and ask to speak to the Silk Screen Processor applications project manager and the cinder pit crane operator will contactthat person for you. Discharge instructions reviewed with patient who expresses understanding. * Patient Instructions* Dion Osullivan MD - 11/27/2011 1:07 PM EST Please see Recommendations in the Provation procedure report which is documented in the procedural note in E-DH. * Attachments The following attachments cannot be sent through Care Everywhere. * COLONOSCOPY: WHAT TO EXPECT AT HOME (MALAY) documented in this encounter Medications at Time [...] Osullivan MD - 11/27/2011 1:06 PM EST [facility] Operative Note Patient Name: Naya Rodriguez : [id number] MR#: [id number] Case Date: 11/27/2011 Surgeon: Surgeon(s) and Role: * Dion OSULLIVAN MD - Primary Please see the Provation procedure report in the Procedures tab in eDH. documented in this encounter Plan of Treatment Upcoming Encounters Date Type Department Care Team (Late st Contact Info) Description 08/15/2024 9:00 AM EDT Office Visit Gastroenterology at [place] [phone] Dion Osullivan MD [facility] [place] [address] 09/01/2024 11:20 AM EDT Office Visit Dermatology at [place] [address] [place] [address] Gómez Mercer MD [facility] [address] [place] [address] 09/21/2024 2:45 PM EDT Office Visit Pain and Spine Center at [place] [phone] Trung Hoyos MD [facility] [address] documented as of this encounter Procedures Procedure [...] 4:38 PM EST) Surgical Pathology Report ? [facility] ? Provider: ?? Dion OSULLIVAN ?Pt. Name: ?? SHANTNAYA Toan ? Acc #: ?[id number] ?Pt. ? Col Date: ?? 11/27/2011 ?/Sex: [...] Stephen, rubbery mucosal polyp, the larger ? [facility] ? Provider: ?? Dion OSULLIVAN ?Pt. Name: ?? NAYA RODRIGUEZ ? Acc #: ?[id number] ?Pt. ? Col Date: ?? 11/27/2011 ?/Sex: [...] MD PATHOLOGY/CYTOLOGY O CEE Performing Organization Address [facility] Phone Number DURGA FREDERICK * Specimen to Pathology (surgical or derm) (11/27/2011 1:53 PM EST) AP Specimen 11/27/2011 1:53 PM EST 11/27/2011 1:53 PM EST Narrative CERNER MILLENNIUM - 11/27/2011 1:53 PM EST Specimen requisition ordered. ??Separate Pathology report to follow L Karthik Osullivan MD PATHOLOGY/CYTOLOGY O CEE Performing Organization Address [facility] de Phone Number DURGA COLBERTIUM * Specimen to Pathology (surgical or derm) (11/27/2011 1:53 PM EST) AP Specimen 11/27/2011 1:53 PM EST 11/27/2011 1:53 PM EST Narrative DURGA ORDOÑEZENNIUM - 11/27/2011 1:53 PM EST Specimen requisition ordered. ??Separate Pathology report to follow L Karthik Osullivan MD PATHOLOGY/CYTOLOGY O CEE Performing Organization Address [facility] Co de Phone Number DURGA FREDERICK * Specimen to Pathology (surgical or derm) (11/27/2011 1:53 PM EST) AP Specimen 11/27/2011 1:53 PM EST 11/27/2011 1:53 PM EST Narrative DURGA COLBERTIUM - 11/27/2011 1:53 PM EST Specimen requisition ordered. ??Separate Pathology report to follow L Karthik Osullivan MD PATHOLOGY/CYTOLOGY O CEE Performing Organization Address [facility] Co de Phone Number DURGA FREDERICK * COLONOSCOPY (11/27/2011 1:01 PM EST) COLONOSCOPY [facility] Endoscopy Patient Name: Naya Rodriguez ? Procedure Date: 11/27/2011 01:01:31 PM ? N: [id number] ? Date of : 1950 ? Age: 61 ? Procedure: ? Colonoscopy Indications: ? Follow-up of left-sided chronic ? ulcerative colitis Providers: ? L Karthik Osullivan MD, Tyron Cee, ? RN, Qing López, Granite Cutter Referring : ?Maximilian Fall MD Medicines: ? Midazolam 4 [...] Dose Rate Site sodium chloride 0.9% infusion 50 mL/hr, Intravenous, [...] 50 mL/hr, Intravenous, CONTINUOUS, Starting on Tresa 12 at 1230, Until Tresa 12 at 1701, Endoscopy (Day of Procedure) 1230 (New Bag - Prov ider: Madalyn Harley RN) PRN Medication Order 11/25/2011 11/26/2011 11/27/2011 fentaNYL 50mcg/mL injection (CANCELED) ONCE PRN, Starting on Tresa 11/27/11 at 1308, Until Tresa 11/27/11 at 1701, Pain, Intra-Operative (Intra-Procedure), Routine 1308 [...] injection (CANCELED) ONCE PRN, Starting on Tresa 11/27/11 at 1308, Until Tresa 11/27/11 at 1701, Sleep, Intra-Operative (Intra-Procedure), Routine 1308 (Given - Provid er: Tyron Cee RN - Comment: see fentanyl same time)1311 (Given - Provider: Tyron Cee RN - Comment: see fentanyl same time)1320 (Given - Provider: Tyron Cee RN - Comment: see fentanyl same time) documented in this encounter Care Teams Braille Proofreader Relationship Specialty Start Date End Date Maximilian Fall MD [address] [place] [address] PCP - General 10/01/11 02/13/21 documented as of this encounter
[2024-06-29] MEDS: fentaNYL 100 MCG/2 ML VIAL 25 MCG IVP (16:35)
[2024-06-29] MEDS: nitroGLYcerin 0.4 MG TAB SL (18:38)
[2024-06-29 19:20] LABS: Troponin I 6697 ng/L (< or =60)
--- NOTE | 2024-06-29 22:04 | NUR.NOTE ---
report given to Faith [facility] Nursing Note:
--- NOTE | 2024-06-29 22:06 | W.PM.HP.N ---
Date of service: 06/29/24 Time of Service: 22:07 Assessment and Plan Assessment and plan (1) Non-ST elevation AR (NSTEMI): Start date: 06/29/24 Status: Acute Assessment and plan: This is a 74-year-old gentleman who has nitroglycerin responsive chest pain which was radiating into the jaw and no acute ischemic changes on EKG but frequent PVCs which have lessened since he received IV magnesium. Troponins are trending up with initial troponin 4,143 increasing this to 6,697. Continue to trend troponins and continue IV heparin infusion with Plavix and aspirin as well as high-dose statin. Since patient is pain-free, I will not continue Nitropaste or nitroglycerin sublingually unless chest pain recurs because of exacerbation of migraine headaches. Patient has been accepted at [facility] and [facility] and the first available bed will be used. He is a full code. (2) HTN (hypertension): Status: Chronic Assessment and plan: Continue losartan and start metoprolol holding propranolol. Adjust medications to blood pressure control. Qualifiers: Hypertension type: primary hypertension Qualified Code(s): I10 - Essential (primary) hypertension (3) Diabetes mellitus: Status: Chronic Assessment and plan: Hold outpatient medical therapy and use moderate sliding scale with short acting insulin checking glucometers before meals and at bedtime. Qualifiers: Diabetes mellitus complication detail: with polyneuropathy Diabetes mellitus complication status: with neurologic complications Diabetes mellitus detention insulin use: with detention use Diabetes mellitus type: type 2 Qualified Code(s): E11.42 - Type 2 diabetes mellitus with diabetic polyneuropathy; Z79.4 - assisted (current) use of insulin (4) Ulcerative colitis: Assessment and plan: Continue outpatient medical therapy. Qualifiers: Digestive disease complication type: without complication Ulcerative colitis location: other ulcerative colitis Qualified Code(s): K51.80 - Other ulcerative colitis without complications (5) GERD (gastroesophageal reflux disease): Assessment and plan: Continue outpatient medical therapy with change PPI to Protonix because of conflict of omeprazole with Plavix. Qualifiers: Esophagitis presence: without esophagitis Qualified Code(s): K21.9 - Gastro-esophageal reflux disease without esophagitis (6) BPH without obstruction/lower urinary tract symptoms: Status: Chronic Assessment and plan: Continue outpatient medical therapy. Patient is urinating well without significant urinary symptoms. History of Present Illness History of Present Illness Chief Complaint: Nonexertional retrosternal chest pain radiating into jaw. Narrative: This is a 74-year-old male patient who presents to the ED with a 2-week history of non-exertional anterior chest pain which was to the left and retrosternal with some radiation into his jaw. This discomfort was worsening but had no other associated symptoms with patient denying nausea, vomiting and no diaphoresis or shortness of breath. He is fairly physically active. In the ED, he did receive nitroglycerin with his persistent chest pain which resolved. He did have a headache after this nitroglycerin and Nitropaste was ordered but discontinued because of history of migraine headaches. His EKG was non-acute except for frequent PVCs and his magnesium was slightly low with IV repletion given in the ED. He did have a positive troponin with repeat increasing and patient has been accepted at [facility] under Dr. Hill on the cardiology service with initiation of heparin, loading with Plavix and aspirin and given high-dose statin. Patient was also excepted at [facility] [place]. Yoo on the cardiology service. The first bed available will be used with the other facility to be called if cancellation is needed after exceptions at the other facility. Patient was asleep when I approached him and had no further history to offer with no previous history of CAD significant history for BPH, ulcerative colitis and hypertension with diabetes as well as GERD. He also has a history of migraine headaches with mild headache prompted by his sublingual nitroglycerin. He has no focal neurological complaints. Patient will be admitted to the ICU pending transfer. He has a full code. Review of Systems Narrative: 13 point review of systems otherwise unrevealing or stable. Patient denies any swelling or weight gain. He does have arthritis. [facility] All Active Problems BPH without obstruction/lower urinary tract symptoms (Chronic) HTN (hypertension) (Chronic) Non-ST elevation AR (NSTEMI) (Acute) Chronic neck pain (Acute) Chronic cough (Acute) Asthma (Chronic) Diabetes mellitus (Chronic 03/10/13) Diabetic peripheral neuropathy associated with type 2 diabetes mellitus (Chronic 12/18/17) Gastroesophageal reflux disease (Chronic) Hearing loss (Chronic) Right lumbar radiculopathy (Chronic 12/06/15) Ulcerative colitis (Chronic) mild Inguinodynia, left (Acute) Prostatitis (Acute) Hydrocele (Acute) History of tobacco use (Acute) Family history of colon cancer (Acute) Diverticulosis of sigmoid colon (Acute) Colon polyp (Acute) Pain in left testicle (Acute) BPH loc w urin obs/LUTS (Acute) Microscopic hematuria (Acute) Left inguinal pain (Acute) Lumbar back pain with radiculopathy affecting left lower extremity (Acute) Hiatal hernia with GERD (Acute) Dysuria (Acute) Exertional dyspnea (Acute) Hyperlipidemia (Acute) Right shoulder pain (Acute) Traumatic tear of right rotator cuff (Acute 01/01/22) Skin lesion (Acute) Status post arthroscopy of right shoulder (Acute 09/05/22) s/p rotator cuff repair of supraspinatus, arthroscopic biceps tenodesis, extensive debridement and subacromial decompression Medical History Skin cancer removal x2 weeks ago Glaucoma surgery fixed Tendonitis of long head of biceps brachii of right shoulder Bursitis of right shoulder Esophagitis Subdural hemorrhage Age 17, and a tree fell and hit him age 47 Abnormal colonoscopy 02/22/19 tubular adenoma ascending and transverse colon, sessile serrated adenoma @ 50cm, rectosigmoid colon moderately active chronic colitis/proctitis. mg Inguinal hernia of left side without obstruction or gangrene COPD (chronic obstructive pulmonary disease) Essential hypertension GERD (gastroesophageal reflux disease) Ulcerative colitis DM2 (diabetes mellitus, type 2) Skin cancer, basal cell (10/08/16) Surgical History History of cataract surgery History of esophagogastroduodenoscopy (EGD) (~06/28/21) History of herniorrhaphy (10/19/18) left indirect, dr perez History of appendectomy History of open reduction and internal fixation (ORIF) procedure wrist and ankle [place] [facility] [place] [facility] Cholecystectomy Family History Mother Leukemia Father Neoplasm Grandfather Neoplasm STOMACH Grandmother Diabetes Colitis Brother Prostate cancer Nephew Prostate cancer Social History Smoking/Tobacco Use Status: Former Tobacco Use Quit Date: 11/23/91 Pack-years: 20 Second Hand Exposure: Yes Smoking risk assessment performed?: Yes Alcohol Intake: former Drug use: Never Substance use type: does not use Details: alcohol t-7 Caregiver/Support person: No Housing: house Number of Children: 2 Communication Needs: Hard of Hearing Do you need help understanding health information?: Rarely current occupation: Retired Pets and animals: No Sexually active: No Do you think of yourself as: straight/heterosexual Current gender identity: male What is your relationship status?: How often do you talk on the phone with friends or family?: three or more times per week How often do you get together with friends or relatives?: never How often do you attend scientologist or methodist services?: decline to answer Do you belong to any clubs or organized social groups?: no Panel score (0-1 are the most socially isolated patients): 1 What type of physical activity do you participate in: walking Duration: > 90 minutes/day Frequency: daily Special harmeet needs: No Seatbelt use: always Helmet use: Yes Helmet use: always Drive intox or ride w/intox truck driver teamster: No Do you feel safe at home: Yes Do you feel safe in your relationship?: Yes Victim of physical abuse: No Victim of emotional abuse: No Victim of sexual abuse: No Would you like helpful sources: No Additional Social history: lives alone Meds Allergies and Home Medications Allergies Allergy/AdvReac Type Severity Reaction Status Date / Time hornet venom Allergy Severe Anaphylaxis Verified 06/29/24 14:08 amitriptyline Allergy Hives Verified 06/29/24 14:08 cephalexin (From Keflex) AdvReac Intermediate headaches Verified 06/29/24 14:08 empagliflozin (From AdvReac Intermediate Yeast Verified 06/29/24 14:08 Jardiance) infection finasteride (From Proscar) AdvReac Intermediate testicle Verified 06/29/24 14:08 pain Tetracyclines AdvReac Intermediate NAUSEA Verified 06/29/24 14:08 erythromycin base AdvReac Unknown NAUSEA Verified 06/29/24 14:08 Home Medications ?Medication ?Instructions ?Recorded ?Confirmed ?Type acetaminophen 325 mg tablet 650 mg PO Q4H PRN 03/07/19 06/29/24 History (Tylenol) sulfasalazine 500 mg tablet 0.5 gm PO BID 10/11/19 06/29/24 History epinephrine 0.3 mg/0.3 mL 0.3 ml IM ONCE #1 ea 05/01/21 06/29/24 Rx injection, auto-injector (EpiPen) sumatriptan succinate 50 mg tablet 50 mg PO ONCE PRN migraine 01/13/22 06/29/24 Rx (Imitrex) headache #7 tab-caps naproxen 250 mg tablet 250 - 500 mg (1 - 2 x 250 mg) PO 09/17/22 06/29/24 Rx BID PRN pain and inflammation #30 tabs blood sugar diagnostic #100 ea 06/04/23 06/03/24 Rx pen needle, diabetic 31 gauge x #100 ea 06/04/23 06/03/24 Rx 5/16 (Pen Needle) propranolol 160 mg capsule,24 160 mg PO DAILY #90 caps 09/28/23 06/29/24 Rx hr,extended release dicyclomine 20 mg tablet 20 mg PO 12/28/23 06/03/24 History metformin 500 mg tablet 500 mg PO DAILY #90 tab-caps 01/06/24 06/29/24 Rx folic acid 1 mg tablet 1 mg PO DAILY #90 tab-caps 02/10/24 06/29/24 Rx glipizide 10 mg tablet 10 mg PO DAILY #90 tab-caps 02/10/24 06/29/24 Rx omeprazole 40 mg capsule,delayed 40 mg PO DAILY #90 caps 02/10/24 06/29/24 Rx release insulin glargine 100 unit/mL (3 70 unit (0.7 mL) subcut HS #63 mL 03/02/24 06/03/24 Rx mL) subcutaneous pen (Paco Flynn U-100 Insulin) losartan 100 mg tablet 100 mg PO DAILY #90 tabs 03/02/24 06/29/24 Rx albuterol sulfate 90 mcg/actuation 2 puff inhalation Q6H PRN 04/27/24 06/29/24 Rx aerosol inhaler shortness of breath or wheezing #8.5 grams triamcinolone acetonide 0.1 % 1 applic topical BID #80 grams 04/27/24 06/29/24 Rx topical cream tamsulosin 0.4 mg capsule 0.4 mg PO HS 06/29/24 06/29/24 History budesonide 2 mg/actuation rectal UT 06/30/24 History foam ketoconazole 2 % topical cream applic topical 06/30/24 History pen needle, diabetic 31 gauge x 06/30/24 06/30/24 History 3/16 (BD Ultra-Fine Mini Pen Needle) Exam Narrative Exam Narrative: General: Patient appears older than stated age, he is hard of hearing but appears comfortable lying in bed easily awakened. He is alert and oriented x 3. He is in no acute distress. HEENT: Normocephalic, eyes with pupils equal and reactive to light symmetrically, extraocular movement intact and sclera anicteric. Oropharynx with slightly dry mucosa and patient edentulous. Neck: Supple without JVD. Back: Kyphotic without CVA tenderness. Lungs: Bronchovesicular sounds diffusely with no focalizing rales or rhonchi. No expiratory wheeze. Duration. Heart: Regular rate and rhythm with no appreciable murmur or gallop. Distant heart sounds. Abdomen: Obese contour, soft nontender to palpation with no palpable hepatosplenomegaly. Bowel sounds positive all quadrants. No guarding or rebound. Genitalia/rectal: Exam deferred. Extremities: No clubbing, cyanosis or grossly pitting edema with nonpitting edema lower extremities and osteoarthritic changes of joints. Good capillary refill. Skin: Actinic changes of the sun-exposed areas, otherwise normal color, warm and dry. Neuro: Cranial nerves II through XII gross intact, no focal motor deficits and no tremor. Patient is hard of hearing. Psych: Normal affect and mood. No abnormal thought processes. Remote and recent memory intact. Results Imaging Imaging Studies: EXAM: XR CHEST 2V PA LATERAL CLINICAL HISTORY: 2 weeks anterior chest pain to jaw TECHNIQUE: 2D digital imaging was performed. Two views. COMPARISON: CR XR CHEST 2V PA LATERAL from 09/29/2023 FINDINGS: HEART: Normal size. Aorta: Not dilated. PULMONARY VASCULATURE: Normal. MEDIASTINUM: Unremarkable. LUNGS: No infiltrate or pulmonary edema. Minimal basilar scarring. PLEURAL SPACE: No pleural effusion or pneumothorax. BONE:Unremarkable for age. SOFT TISSUES: Unremarkable. IMPRESSION: No acute abnormality. . Labs 06/30/24 03:02 06/30/24 03:02 Labs: Laboratory Results - last 24 hr 06/29/24 06/29/24 14:25 18:55 WBC 6.84 RBC 3.80 L Hgb 12.7 L Hct 37.8 L MCV 100 H MCH 33.4 H MCHC 33.6 RDW 12.7 Plt Count 171 MPV 11.3 H Immature Gran % 0.4 Neutrophils % 72.8 Lymphocytes % 16.8 Monocytes % 7.6 Eosinophils % 2.0 Basophils % 0.4 Nucleated RBC % 0.0 Absolute Neutrophils 4.97 Absolute Lymphocytes 1.15 L Absolute Monocytes 0.52 Absolute Eosinophils 0.14 Absolute Basophils 0.03 PT 10.3 INR 1.0 APTT 20.3 L Sodium 137 Potassium 5.7 H Chloride 102 Carbon Dioxide 26.1 Anion Gap 8.9 BUN 12 Creatinine 1.1 Est GFR (CKD-EPI 2020) 69.57 Glucose 200 H Calcium 9.4 Magnesium 1.6 L Total Bilirubin 0.68 AST 72 H ALT 30 Alkaline Phosphatase 65 Troponin I 4143 H* 6697 H* NT-Pro-B Natriuret Pep 2040 H Total Protein 8.3 H Albumin 3.7 Lipase 26 Last Vital Signs Temp 36.8 C 06/29/24 13:59 Pulse 66 06/29/24 21:17 Resp 15 06/29/24 21:30 BP 146/85 H 06/29/24 21:17 Pulse Ox 96 06/29/24 13:59 Time Spent Time spent with Patient: >75 minutes Time was spent: preparing to see the patient(eg.review tests), obtaining and/or reviewing separately otained hiistory, ordering medications,tests, procedures, referring, communicating with other health urgent care physician assistant, indepentently interpreting results and care coordination
--- OUTSIDE RECORDS SUMMARY | 2024-06-29 23:31 | XMS_ITS | Clinical Summary ---
Author Organization [facility] Address [address] [place] [address] Care Team Providers Care Carpenter Supervisor Wooden Ship Name Role Phone Maximilian Fall MD Primary Care Provider [phone] Encounters Date Type Department Care Team Description 06/29/2024 18:51 EDT Hospital Encounter [facility] Secondary Reads [place] Arrived 06/29/2024 Hospital Encounter Davida Genao MD 06/29/2024 Travel from Last 3 Months Social History [...] Sign Reading Time Taken Comments Blood Pressure 123/75 06/29/20241949 EDT Pulse 70 06/29/20241949 EDT Temperature 36.8 ??C (98.2 ??F) 06/29/2024 1950 EDT Respiratory Rate 16 06/29/2024 1950 EDT Oxygen Saturation 96% 06/29/20241949 EDT Inhaled Oxygen Concentration - - Weight - - Height - - Body Mass Index - - Plan of Treatment Health Maintenance Due Date Last Done Comments Hepatitis C Screen 1950 RSV Immunization ( o r 60+ Years) (1 - 1-dose 60+ series) 2008 Fall Risk Screening 2013 COVID-19 Vaccine (24 season) 2023 Procedures Procedure Name Priority Date/Time Associated Diagnosis Comments XR OUTSIDE IMAGES CHEST Routine 06/29/2024 18:51 EDT from Last 3 Months Results * XR OUTSIDE IMAGES CHEST (06/29/2024 18:51 EDT) Narrative 06/29/2024 18:51 EDT This is a non-reportable exam. Provider Unknown MD SHERMAN OTHER IMAGING OR DERABLES from Last 3 Months Care Teams Carpenter Supervisor Wooden Ship Relationship Specialty Start Date End Date Maximilian Fall MD PCP - General 03/18/16
--- OUTSIDE RECORDS SUMMARY | 2024-06-29 23:31 | XMS_ITS | Encounter Summary ---
Author Organization [facility] Address [address] [place] [address] Care Team Providers Care Mediation Commissioner Name Role Phone Maximilian Fall MD Primary Care Provider [phone] Reason for Referral * (Routine/Next Available) - Receiving Office to Obtain Authorization Specialty Diagnoses / Procedures Referred By Contac t Referred To Contact Procedures XR OUTSIDE IMAGES CHEST Unknown, ProviderMD Referral ID Status Reason Start Date Expiration Date Visits Requested Visits Authorized [id number] Receiving Office to Obtain Authorization 06/29/2024 1 1 Reason for Visit * (Routine/Next Available) - Receiving Office to Obtain Authorization Specialty Diagnoses / Procedures Referred By Contac t Referred To Contact Procedures XR OUTSIDE IMAGES CHEST Unknown, MD [place] Referral ID Status Reason Start Date Expiration Date Visits Requested Visits Authorized [id number] Receiving Office to Obtain Authorization 06/29/2024 1 1 Encounter Details Date Type Department Care Team (Late st Contact Info) Description 06/29/2024 18:51 EDT Hospital Encounter [facility] Secondary Reads [place] Arrived Social History Tobacco Use Types Packs/Day Years [...] OUTSIDE IMAGES CHEST Routine 06/29/2024 18:51 EDT documented in this encounter Results * XR OUTSIDE IMAGES CHEST (06/29/2024 18:51 EDT) Narrative 06/29/2024 18:51 EDT This is a non-reportable exam. Provider Unknown MD SHERMAN OTHER IMAGING OR DERABLES documented in this encounter Visit Diagnoses Not on filedocumented in this encounter Care Teams Mediation Commissioner Relationship Specialty Start Date End Date Maximilian Fall MD PCP - General 03/18/16 documented as of this encounter
--- OUTSIDE RECORDS SUMMARY | 2024-06-29 23:31 | XMS_ITS | Encounter Summary ---
Author Organization [facility] Address [address] [place] [address] Care Team Providers Care Housing Officer Name Role Phone Maximilian Fall MD Primary Care Provider [phone] Encounter Details Date Type Department Care Team (Late st Contact Info) Description 08/15/2022 Lab Requisition [facility] Pathology & Laboratory Medicine - [address] [address] Zeyad Hudson, [address] [place] [phone] Neoplasm of unspecified behavior of bone, soft [...] explore management options, if applicable. 08/18/2022 11:15 [facility] Final Diagnosis A. SKIN OF NASAL DORSUM, RIGHT, SHAVE BIOPSY: - Basal cell carcinoma, infiltrative type. - Basal cell carcinoma present at peripheral and deep tissue edges. 08/18/2022 11:15 [facility] Attestation By the signature below, the attending physician certifies that they have 1) personally conducted a gross and/or microscopic examination of the described specimen(s), and/or personally interpreted the results of laboratory testing of the described specimen(s), and 2) personally rendered or confirmed the above diagnosis. 08/18/2022 11:15 [facility] at [address]4 Microscopic Description Emanating [...] of the islands and stroma. 08/18/2022 11:15 [facility] Clinical History History BCC; clinical diagnosis code: D49.2 08/18/2022 11:15 [facility] Gross Description A. Received in [...] A1-A3. TOLU CHRIS 08/16/2022 10:29 08/18/2022 11:15 [facility] Performing Lab [facility] 08/18/2022 11:15 [facility] Scanned Images 08/18/2022 11:15 [facility] Tissue TISSUE SPECIMEN FROM SKIN / Unknown 08/14/2022 10:25 EDT 08/15/2022 21:12 EDT Zeyad MIRAMONTES PATHOLOGY ORDERABL ES [facility] [address] [place] [address] documented in this encounter Visit Diagnoses Diagnosis Neoplasm of unspecified behavior of bone, soft tissue, and skin documented in this encounter Care Teams Housing Officer Relationship Specialty Start Date End Date Maximilian Fall MD PCP - General 03/18/16 documented as of this encounter
--- OUTSIDE RECORDS SUMMARY | 2024-06-29 23:31 | XMS_ITS | Referral Summary ---
Author Organization [facility] Address [address] [place] [address] Care Team Providers Care Utility Locator Name Role Phone Maximilian Fall MD Primary Care Provider [phone] Encounters Date Type Department Care Team Description 06/29/2024 Hospital Encounter Davida Genao MD 06/29/2024 Travel 06/29/2024 18:51 EDT Hospital Encounter [facility] Secondary Reads [place] Arrived from Last 3 Months Social History Tobacco [...] Mass Index - - Plan of Treatment Not on file Procedures Procedure Name Priority Date/Time Associated Diagnosis Comments XR OUTSIDE IMAGES CHEST Routine 06/29/2024 18:51 EDT from Last 3 Months Results * XR OUTSIDE IMAGES CHEST (06/29/2024 18:51 EDT) Narrative 06/29/2024 18:51 EDT This is a non-reportable exam. Provider Unknown MD SHERMAN OTHER IMAGING OR DERABLES from Last 3 Months Care Teams Utility Locator Relationship Specialty Start Date End Date Maximilian Fall MD PCP - General 03/18/16
--- OUTSIDE RECORDS SUMMARY | 2024-06-29 23:31 | XMS_ITS | Encounter Summary ---
Author Organization [facility] Address [address] [place] [address] Care Team Providers Care Nuclear Plant Equipment Operator Name Role Phone More Naylor MD Primary Care Provider [phone] Encounter Details Date Type Department Care Team (Late st Contact Info) Description 10/30/2016 Results Only [facility] [phone] Tamara Reza, [address] [place], [place] [id number] Social History Tobacco Use Types Packs/Day Years [...] ? NAYA RODRIGUEZ ? Accession #: ? [id number] ? : ? 1950 (Age: 66) ??M [...] tumor. This sample was processed at the [facility]. ??The slides were reviewed and the final diagnosis was made at [facility], [address] [place] [address]. ([place] License Number [id number]) Document reviewed and electronically signed by: AMIE [...] prior to verbal report. ??Procedure performed at [facility]. ??Staining of frozen section is adequate. [...] prior to verbal report. ??Procedure performed at [facility]. Staining of frozen section is adequate. [...] Chowdhury 11/03/2016 3:11 PM End of Report [facility] 10/30/2016 11:3 0 EST 11/01/2016 11:30 EST Tamara Reza DO PATHOLOGY ORDER ASHLIE [facility] [address] [place] [address] documented in this encounter Visit Diagnoses Not on filedocumented in this encounter Care Teams Nuclear Plant Equipment Operator Relationship Specialty Start Date End Date More Naylor MD PCP - General 03/18/16 documented as of this encounter
--- OUTSIDE RECORDS SUMMARY | 2024-06-29 23:31 | XMS_ITS | Encounter Summary ---
Author Organization [facility] Address [address] [place] [address] Care Team Providers Care Clinical Director Name Role Phone Maximilian Fall MD Primary Care Provider [phone] Encounter Details Date Type Department Care Team (Latest Contact Info) Description 12/31/2017 9:43 EST - 12/31/2017 23:59 EST Hospital Encounter [address] [address] Unknown, Provider, Discharge Disposition: Home or Self Care Social History Tobacco Use Types Packs/Day Years Used Date Smoking Tobacco: Never Assessed Sex and Gender Information Value Date Recorded Sex Assigned at Not on file Gender Identity Not on file Sexual Orientation Not on file documented as of this encounter Discharge Disposition Disposition Code Departure Means Destination Home or Self [facility] documented in this encounter Plan of Treatment Not on file documented as of this encounter Visit Diagnoses Not on filedocumented in this encounter Care Teams Clinical Director Relationship Specialty Start Date End Date Maximilian Fall MD PCP - General 03/18/16 documented as of this encounter
--- OUTSIDE RECORDS SUMMARY | 2024-06-29 23:31 | XMS_ITS | Encounter Summary ---
Author Organization [facility] Address [address] [place] [address] Care Team Providers Care Radiology Technician Name Role Phone Maximilian Fall MD Primary Care Provider [phone] Encounter Details Date Type Department Care Team (Latest Contact Info) Description 06/29/2024 Hospital Encounter Davida Genao MD [address] [facility] [address] [place] [address] Social History Tobacco Use Types Packs/Day Years [...] on filedocumented in this encounter Care Teams Radiology Technician Relationship Specialty Start Date End Date Maximilian Fall MD PCP - General 03/18/16 documented as of this encounter
--- OUTSIDE RECORDS SUMMARY | 2024-06-29 23:31 | XMS_ITS | Encounter Summary ---
Author Organization [facility] Address [address] [place] [address] Care Team Providers Care Metal Roaster Name Role Phone Sharad Leon MD Primary Care Provider Unavail able Encounter Details Date Type Department Care Team (Late st Contact Info) Description 03/13/2016 Results Only [facility]- [facility] [phone] Marcy Laurent, DO [address] [place] [address] Social History Tobacco Use Types [...] reading/interpret ing unformatted reports. Name: ? BRIAN RODRIGUEZ ? Accession #: ? [id number] ? : ? 1950 (Age: 65) ??M [...] adjacent to the proximal stapled margin, two sales representative adding machines cross sections and one-half of the longitudinally bisected distal tip are submitted in 1. Dr. Beth 03/17/2016 3:13 PM End of Report [facility] 03/13/2016 19:4 2 EDT 03/14/2016 19:42 EDT Marcy Laurent DO PATHOLOGY ORDERABLES [facility] [address] [place] [address] * SUSCEPTIBILITY (03/13/2016 12:15 EDT) Result ESCHERICHIA COLI Organism identification performed by client. 03/17/2016 7:51 EDT [facility] URINE / Unknown 03/13/2016 1 [...] - GENER AL ORDERABLES Performing Organization Address City/[facility] Co de Phone Number [facility] [address] [place] [address] documented in this encounter Visit Diagnoses Not on filedocumented in this encounter Care Teams Metal Roaster Relationship Specialty Start Date End Date Sharad Leon MD PCP - General 12/07/09 03/17/16 documented as of this encounter
--- OUTSIDE RECORDS SUMMARY | 2024-06-29 23:31 | XMS_ITS | Encounter Summary ---
Author Organization [facility] Address [address] [place] [address] Care Team Providers Care Commercial Ocean Clammer Name Role Phone Maximilian Fall MD Primary Care Provider [phone] Encounter Details Date Type Department Care Team (Late st Contact Info) Description 11/28/2021 Lab Requisition [facility] Pathology & Laboratory Medicine - [address] [phone] Outr Resulting Lab, Provider Social History Tobacco [...] Outr Resulting Lab MICROBIOLOGY - GENERAL ORDERABLES [facility] [address] [place] [address] * COVID-19 TESTING (11/27/2021 12:35 EST) COVID-19 rt-PCR Result Negative Negative 11/29/2021 16:23 EST [facility] Comment: This test [...] developed and its performance characteristics determined by [facility]. It has not been cleared or approved [...] testing. This test is based on the [facility] COVID-19 Emergency Use Authorization (EUA) assay, with minor modification as defined by the FDA Performed on the Diffinity Genomicso 7 Flex RT-PCR System. Performing Lab [facility] 11/29/2021 16:23 EST [facility] Swab 11/27/2021 12:3 5 EST 11/28/2021 17:45 EST Provider Outr Resulting Lab MICROBIOLOGY - GENERAL ORDERABLES [facility] [address] [place] [address] documented in this encounter Visit Diagnoses Not on filedocumented in this encounter Care Teams Commercial Ocean Clammer Relationship Specialty Start Date End Date Maximilian Fall MD PCP - General 03/18/16 documented as of this encounter
--- OUTSIDE RECORDS SUMMARY | 2024-06-29 23:31 | XMS_ITS | Encounter Summary ---
Author Organization [facility] Address [address] [place] [address] Care Team Providers Care Draughtsman Name Role Phone Maximilian Fall MD Primary Care Provider [phone] Encounter Details Date Type Department Care Team (Late st Contact Info) Description 02/17/2023 Lab Requisition [facility] Pathology & Laboratory Medicine - [address] [phone] Outr Resulting Lab, Provider Social History Tobacco [...] Salmonella PCR Negative Negative 02/18/2023 11:[address] [facility] Shigella/Enteroin vasive E. coli Negative Negative 02/18/2023 11:[address] [facility] HN LAB CAMPYLOBACTER PCR Negative Negative 02/18/2023 11:[address] [facility] Shiga Toxin PCR Negative Negative 03/29/202 3 11:[address] [facility] Feces SPECIMEN FROM RECTUM / Unknown 02/17/2023 7:00 EDT 02/17/2023 22:14 EDT Provider Outr Resulting Lab MICROBIOLOGY - GENERAL ORDERABLES Performing Organization Address City/State/[facility] Co de Phone Number [facility] [address] [place] [address] documented in this encounter Visit Diagnoses Not on filedocumented in this encounter Care Teams Draughtsman Relationship Specialty Start Date End Date Maximilian Fall MD PCP - General 03/18/16 documented as of this encounter
--- OUTSIDE RECORDS SUMMARY | 2024-06-29 23:31 | XMS_ITS | Encounter Summary ---
Author Organization [facility] Address [address] [place] [address] Care Team Providers Care Self Pay Specialist Name Role Phone Maximilian Fall MD Primary Care Provider [phone] Encounter Details Date Type Department Care Team (Latest Contact Info) Description 06/29/2024 Travel Social History Tobacco Use Types Packs/Day [...] on filedocumented in this encounter Care Teams Self Pay Specialist Relationship Specialty Start Date End Date Maximilian Fall MD PCP - General 03/18/16 documented as of this encounter
--- OUTSIDE RECORDS SUMMARY | 2024-06-29 23:31 | XMS_ITS | Encounter Summary ---
Author Organization [facility] Address [address] [place] [address] Care Team Providers Care Molder Machine Name Role Phone Maximilian Fall MD Primary Care Provider [phone] Encounter Details Date Type Department Care Team (Latest Contact Info) Description 09/04/2016 8:11 EDT - 09/04/2016 23:59 EDT Hospital Encounter [address] [address] Unknown, Provider, Discharge Disposition: Home or Self Care Social History Tobacco Use Types Packs/Day Years Used Date Smoking Tobacco: Never Assessed Sex and Gender Information Value Date Recorded Sex Assigned at Not on file Gender Identity Not on file Sexual Orientation Not on file documented as of this encounter Discharge Disposition Disposition Code Departure Means Destination Home or Self Shelter documented in this encounter Plan of Treatment Not on file documented as of this encounter Visit Diagnoses Not on filedocumented in this encounter Care Teams Molder Machine Relationship Specialty Start Date End Date Maximilian Fall MD PCP - General 03/18/16 documented as of this encounter
--- OUTSIDE RECORDS SUMMARY | 2024-06-29 23:31 | XMS_ITS | Encounter Summary ---
Author Organization [facility] Address [address] [place] [address] Care Team Providers Care Clinical Program Coordinator Name Role Phone More Fall MD Primary Care Provider [phone] Encounter Details Date Type Department Care Team (Late st Contact Info) Description 09/04/2016 Results Only [facility]- [facility] [phone] More Fall MD [address] [place] [address] Social History Tobacco Use Types Packs/Day Years [...] ? NAYA RODRIGUEZ ? Accession #: ? [id number] ? : ? 1950 (Age: 66) ??M [...] (ASCP) 09/05/2016 2:42 PM End of Report [facility] 09/04/2016 11:2 3 EDT 09/05/2016 11:23 EDT More Fall MD PATHOLOGY ORDERABLES [facility] [address] [place] [address] documented in this encounter Visit Diagnoses Not on filedocumented in this encounter Care Teams Clinical Program Coordinator Relationship Specialty Start Date End Date More Fall MD PCP - General 03/18/16 documented as of this encounter
--- OUTSIDE RECORDS SUMMARY | 2024-06-29 23:31 | XMS_ITS | Encounter Summary ---
Author Organization [facility] Address [address] [place] [address] Care Team Providers Care Travel Insurance Agent Name Role Phone Maximilian Fall MD Primary Care Provider [phone] Encounter Details Date Type Department Care Team (Late st Contact Info) Description 04/10/2020 Lab Requisition [facility] Pathology & Laboratory Medicine - [address] [phone] Outr Resulting Lab, Provider Social History Tobacco [...] 0.0 - 6.5 ng/mL 04/11/2020 10:46 EDT [facility] Blood VENOUS BLOOD / Unknown 04/10/2020 9:15 EDT 04/10/2020 15:53 EDT Narrative [facility] - 04/11/2020 10:46 EDT NOTE: Serum PSA concentration should not be interpreted as absolute evidence for the presence or absence of malignant disease. Assayed on Siemens ADVIA OpenROVaur XPT using chemiluminescent technology.??Values obtained by using different assay methods cannot be used interchangeably. Provider Outr Resulting Lab CHEMISTRY & BLOOD GAS ORDERABLES [facility] [address] [place] [address] documented in this encounter Visit Diagnoses Not on filedocumented in this encounter Care Teams Travel Insurance Agent Relationship Specialty Start Date End Date Maximilian Fall MD PCP - General 03/18/16 documented as of this encounter
--- OUTSIDE RECORDS SUMMARY | 2024-06-29 23:31 | XMS_ITS | Encounter Summary ---
Author Organization [facility] Address [address] [place] [address] Care Team Providers Care Technical Services Manager Name Role Phone Maximilian Fall MD Primary Care Provider [phone] Encounter Details Date Type Department Care Team (Late st Contact Info) Description 07/09/2021 Lab Requisition [facility] Pathology & Laboratory Medicine - [address] [phone] Outr Resulting Lab, Provider Social History Tobacco [...] Outr Resulting Lab MICROBIOLOGY - GENERAL ORDERABLES [facility] [address] [place] [address] * COVID-19 TESTING (07/08/2021 16:45 EDT) COVID-19 rt-PCR Result Negative Negative 07/10/2021 13:[address] [facility] Comment: This test has [...] developed and its performance characteristics determined by [facility]. It has not been cleared or [...] testing. This test is based on the [facility] COVID-19 Emergency Use Authorization (EUA) assay, with minor modification as defined by the FDA Performed on the Tagorao 7 Pro RT-PCR System. Performing Lab [facility] Lab 07/10/2021 13:[address] [facility] Swab 07/08/2021 16:4 5 EDT 07/09/2021 15:41 EDT Provider Outr Resulting Lab MICROBIOLOGY - GENERAL ORDERABLES Performing Organization Address City/[facility] Co de Phone Number [facility] [address] [place] [address] documented in this encounter Visit Diagnoses Not on filedocumented in this encounter Care Teams Technical Services Manager Relationship Specialty Start Date End Date Maximilian Fall MD PCP - General 03/18/16 documented as of this encounter
--- OUTSIDE RECORDS SUMMARY | 2024-06-29 23:31 | XMS_ITS | Encounter Summary ---
Author Organization [facility] Address [address] [place] [address] Care Team Providers Care Ag Equipment Field Service Technician Name Role Phone Maximilian Fall MD Primary Care Provider [phone] Encounter Details Date Type Department Care Team (Late st Contact Info) Description 12/31/2017 Results Only [facility]- [facility] [phone] Tamara Reza, [address] [place], [place] [phone] Social History Tobacco Use Types Packs/Day Years [...] ? NAYA RODRIGUEZ ? Accession #: ? [id number] ? : ? 1950 (Age: 67) ??M [...] [place] 01/02/2018 9:44 AM End of Report [facility] 12/31/2017 16:3 5 EST 01/01/2018 16:35 EST Tamara Reza DO PATHOLOGY ORDER ASHLIE [facility] [address] [place] [address] documented in this encounter Visit Diagnoses Not on filedocumented in this encounter Care Teams Ag Equipment Field Service Technician Relationship Specialty Start Date End Date Maximilian Fall MD PCP - General 03/18/16 documented as of this encounter
--- OUTSIDE RECORDS SUMMARY | 2024-06-29 23:31 | XMS_ITS | Encounter Summary ---
Author Organization [facility] Address [address] [place] [address] Care Team Providers Care Sheet Manager Name Role Phone Maximilian Fall MD Primary Care Provider [phone] Encounter Details Date Type Department Care Team (Late st Contact Info) Description 03/10/2023 Lab Requisition [facility] Pathology & Laboratory Medicine - [address] [phone] Rodrick Florentino MD [address] [place] [phone] Other microscopic hematuria Social History Tobacco [...] Name Priority Date/Time Associated Diagnosis Comments NON COMBINATION PRESSER/FNA CYTOLOGY Today 03/09/2023 10:55 EDT Other microscopic hematuria documented in this encounter Results * NON COMBINATION PRESSER/FNA CYTOLOGY (03/09/2023 10:55 EDT) Note to Patient The following pathology results have been interpreted by your pathologist and may be available to you before your health provider has had the opportunity to review them. Please allow time for your provider to receive these results and explore management options, if applicable. 03/12/2023 7:50 [facility] Final Diagnosis URINE, CATHETERIZED, CYTOLOGIC EVALUATION: - Negative for high grade urothelial carcinoma. - Reactive urothelial cells, abundant acute inflammatory cells and lymphocytes present. 03/12/2023 7:50 [facility] Attestation By the signature below, the attending physician certifies that they have personally conducted a gross and/or microscopic examination of the described specimens and rendered or confirmed the above diagnosis. 03/12/2023 7:50 [facility] at 0750 Clinical History Hematuria; R31.29 03/12/2023 7:50 [facility] Gross Description A. 160cc's of clear pale pink fluid (Cytolyt added) were received and processed by selective cellular enhancement technique. 03/12/2023 7:50 [facility] Performing Lab [facility] 03/12/2023 7:50 [facility] Scanned Images 03/12/2023 7:50 [facility] Urine URINE SPECIMEN COLLECTION, CATHETERIZED / Unknown 03/09/2023 10:55 EDT 03/10/2023 6:16 EDT Rodrick Florentino MD PATHOLOGY ORDERAB LES Performing Organization Address City/State/[facility] Co de Phone Number [facility] [address] [place] [address] documented in this encounter Visit Diagnoses Diagnosis Other microscopic hematuria documented in this encounter Care Teams Sheet Manager Relationship Specialty Start Date End Date Maximilian Fall MD PCP - General 03/18/16 documented as of this encounter
--- OUTSIDE RECORDS SUMMARY | 2024-06-29 23:31 | XMS_ITS | Encounter Summary ---
Author Organization [facility] Address [address] [place] [address] Care Team Providers Care Angiography Nurse Name Role Phone Sharad Leon MD Primary Care Provider Unavail able Encounter Details Date Type Department Care Team (Latest Contact Info) Description 03/14/2016 7:58 EDT - 03/14/2016 23:59 EDT Hospital Encounter [address] [address] Unknown, Provider, Discharge Disposition: Home or Self Care Social History Tobacco Use Types Packs/Day Years Used Date Smoking Tobacco: Never Assessed Sex and Gender Information Value Date Recorded Sex Assigned at Not on file Gender Identity Not on file Sexual Orientation Not on file documented as of this encounter Discharge Disposition Disposition Code Departure Means Destination Home or Self Residential documented in this encounter Plan of Treatment Not on file documented as of this encounter Visit Diagnoses Not on filedocumented in this encounter Care Teams Angiography Nurse Relationship Specialty Start Date End Date Sharad Leon MD PCP - General 12/07/09 03/17/16 documented as of this encounter
--- OUTSIDE RECORDS SUMMARY | 2024-06-29 23:31 | XMS_ITS | Encounter Summary ---
Author Organization [facility] Address [address] [place] [address] Care Team Providers Care Engine Installer Name Role Phone Maximilian Fall MD Primary Care Provider [phone] Encounter Details Date Type Department Care Team (Late st Contact Info) Description 11/10/2022 Lab Requisition [facility] Pathology & Laboratory Medicine - [address] [phone] Outr Resulting Lab, Provider Social History Tobacco [...] Salmonella PCR Negative Negative 11/11/2022 0:14 EST [facility] Shigella/Enteroin vasive E. coli Negative Negative 11/11/2022 0:14 EST [facility] HN LAB CAMPYLOBACTER PCR Negative Negative 11/11/2022 0:14 EST [facility] Shiga Toxin PCR Negative Negative 2 0:14 EST [facility] Feces SPECIMEN FROM RECTUM / Unknown 11/09/2022 10:00 EST 11/10/2022 17:36 EST Provider Outr Resulting Lab MICROBIOLOGY - GENERAL ORDERABLES Performing Organization Address City/State/[facility] Co de Phone Number [facility] [address] [place] [address] documented in this encounter Visit Diagnoses Not on filedocumented in this encounter Care Teams Engine Installer Relationship Specialty Start Date End Date Maximilian Fall MD PCP - General 03/18/16 documented as of this encounter
--- OUTSIDE RECORDS SUMMARY | 2024-06-29 23:31 | XMS_ITS | Encounter Summary ---
Author Organization [facility] Address [address] [place] [address] Care Team Providers Care Inspection Machine Tender Name Role Phone Maximilian Fall MD Primary Care Provider [phone] Encounter Details Date Type Department Care Team (Late st Contact Info) Description 06/28/2021 Lab Requisition [facility] Pathology & Laboratory Medicine - [address] [address] Bettina Shipman, DO [address] [place], [place] [phone] Encounter for other general examination Social History [...] explore management options, if applicable. 07/02/2021 9:15 [facility] Final Diagnosis A. PROXIMAL JEJUNUM, [...] with no significant diagnostic abnormalities. 07/02/2021 9:15 [facility] Attestation There was significant resident/fellow involvement in the diagnostic evaluation of this case. By the signature below, the attending physician certifies that they have personally conducted a gross and/or microscopic examination of the described specimens and rendered or confirmed the above diagnosis. 07/02/2021 9:15 [facility] at 0915 Clinical History Dysphagia 07/02/2021 9:15 [facility] Gross Description A. Received [...] Destin Barros 06/29/2021 11:30 07/02/2021 9:15 EDT [facility] Resident/Bridger w: Gutierrez Castro DO 07/02/2021 9:15 EDT [facility] Performing Lab [facility] 9:15 EDT [facility] Scanned Images 07/02/2021 9:15 EDT [facility] Tissue ENTIRE ESOPHAGUS / Unknown [...] 22:58 EDT Bettina Shipman DO PATHOLOGY ORDERABLES [facility] [address] [place] [address] documented in this encounter Visit Diagnoses Diagnosis Encounter for other general examination documented in this encounter Care Teams Inspection Machine Tender Relationship Specialty Start Date End Date Maximilian Fall MD PCP - General 03/18/16 documented as of this encounter
--- OUTSIDE RECORDS SUMMARY | 2024-06-29 23:32 | XMS_ITS | Encounter Summary ---
Author Organization [facility] Address [facility] [place] [address] Care Team Providers Care Director Of Procurement Name Role Phone Deacon Watters APRN Primary Care Provider [phone] Encounter Details Date Type Department Care Team [...] Care Team (Late st Contact Info) Description 07/01/2024 Hospital Encounter Heart and Vascular Unit Level 3 [place] [phone] Bishop Godinez MD [facility] [place] [address] 08/15/2024 9:00 AM EDT Office [place] [phone] Dion Barlow MD [facility] [place] [place] [address] 09/01/2024 11:20 AM EDT Office Visit Dermatology at [facility] [address] [place] [address] Gómez Mercer MD [facility] DR EDD[place] [address] 09/21/2024 2:45 PM EDT Office Visit [facility] [place] [phone] Trung Hoyos MD [facility] [place] [place] [address] documented as of this encounter Visit Diagnoses Not on filedocumented in this encounter Care Teams Director Of Procurement Relationship Specialty Start Date End Date Deacon Watters, JAZMINE [address] [place] [address] PCP - General Family Medicine 02/17/22 documented as of this encounter
--- OUTSIDE RECORDS SUMMARY | 2024-06-29 23:32 | XMS_ITS | Encounter Summary ---
Author Organization Formerly [facility] [place] [address] Care Team Providers Care Desk Clerk Name Role Phone Deacon Watters APRN Primary Care Provider +1- [phone] Encounter Details Date Type Department Care Team (Late st Contact Info) Description 06/29/2024 7:25 PM EDT Ancillary Procedure [place] [address] Deacon Watters APRN [address] [place], [place] [id number] Arrived Social History Tobacco Use Types Packs/Day [...] Vascular Unit Level 3 [place] [address] Bishop Godinez MD [facility] [place] [address] 08/15/2024 9:00 AM EDT Office [place] [address] Dion Barlow MD [facility] [place] [address] 09/01/2024 11:20 AM EDT Office Visit Dermatology at [facility] [address] [place] [address] Gómez Mercer MD [facility] [place] [address] 09/21/2024 2:45 PM EDT Office Visit [facility] [place] [address] Trung Hoyos MD [facility] [place] [address] documented as of this encounter Procedures Procedure Name Priority Date/Time Associated Diagnosis Comments FILM LIBRARY STORAGE ONLY DX CHEST Routine 06/29/2024 7:22 PM EDT documented in this encounter Results * Film Library- Storage Only DX Chest (06/29/2024 7:22 PM EDT) Narrative [facility] - 06/29/2024 7:22 PM EDT This exam is auto-finalizing. It's purpose is for storage only. Deacon Watters APRN IMG FILM LIBRARY O RDERABLES [place], [place] documented in this encounter Visit Diagnoses Not on filedocumented in this encounter Care Teams Desk Clerk Relationship Specialty Start Date End Date Deacon Watters APRN [address] [place] [address] PCP - General Family Medicine 02/17/22 documented as of this encounter
--- OUTSIDE RECORDS SUMMARY | 2024-06-29 23:32 | XMS_ITS | Encounter Summary ---
Author Organization [facility] Address [facility] [place] [address] Care Team Providers Care Role Player Name Role Phone Deacon Watters APRN Primary Care Provider +1- [phone] Reason for Visit * Reason Comments Basal Cell Carcinoma Encounter Details Date Type Department Care Team (Latest Contact Info) Description 02/17/2024 7:45 AM EDT Clinical Support Dermatology at [facility] [address] [place] [address] Kingsley Finn MD [facility] DR [place] [address] Basal cell carcinoma of right side of [...] Vascular Unit Level 3 [place] [address] Bishop Godinez MD [facility] [place] [address] 08/15/2024 9:00 AM EDT Office [place] [address] Dion Barlow MD [facility] [place] [address] 09/01/2024 11:20 AM EDT Office Visit Dermatology at [address] [place] [address] Gómez Mercer MD [facility] DR [place] [address] 09/21/2024 2:45 PM EDT Office Visit [facility] [place] [address] Trung Hoyos MD [facility] [place] [address] documented as of this encounter Visit Diagnoses Diagnosis Basal cell carcinoma of right side of nose Basal cell carcinoma of skin of other and unspecified parts of face documented in this encounter Care Teams Role Player Relationship Specialty Start Date End Date Deacon Watters APRN [address] [place] [address] PCP - General Family Medicine 02/17/22 documented as of this encounter
--- OUTSIDE RECORDS SUMMARY | 2024-06-29 23:32 | XMS_ITS | Encounter Summary ---
Author Organization [facility] [place] [address] Care Team Providers Care Hearing Aid Dispenser Name Role Phone Deacon Watters APRN Primary Care Provider +1- [phone] Encounter Details Date Type Department Care Team (Late st Contact Info) Description 06/09/2024 Telephone [place] [address] Marcelle Weinberg CAN TENDER [facility] [place] [address] Social History Tobacco Use Types Packs/Day Years [...] Vascular Unit Level 3 [place] [address] Bishop Godinez MD [facility] [place] [address] 08/15/2024 9:00 AM EDT Office Visit Gastroenterology at [place] [phone] Dion Barlow MD [facility] [place] [address] 09/01/2024 11:20 AM EDT Office Visit Dermatology at [address] [phone] Gómez Mercer MD [facility] DR EDD[place] [address] 09/21/2024 2:45 PM EDT Office Visit [facility] [place] [address] Trung Hoyos MD [facility] [place] [place] [address] Scheduled Orders Name Type Priority Associated Diagnoses Orde r Schedule Calprotectin, Stool Lab Routine Left sided colitis without complications Expected: 08/01/2024 (Approximate), Expires: 06/09/2025 documented as of this encounter Visit Diagnoses Diagnosis Left sided colitis without complications Left sided ulcerative (chronic) colitis documented in this encounter Care Teams Hearing Aid Dispenser Relationship Specialty Start Date End Date Deacon Watters APRN [address] [place] [address] PCP - General Family Medicine 02/17/22 documented as of this encounter
--- OUTSIDE RECORDS SUMMARY | 2024-06-29 23:32 | XMS_ITS | Encounter Summary ---
Author Organization [facility] [place] [address] Care Team Providers Care Cell Liner Name Role Phone Deacon Watters APRN Primary Care Provider +1- [phone] Reason for Visit * Reason Comments Medication Refill Encounter Details Date Type Department Care Team (Late st Contact Info) Description 01/11/2024 Refill [place] [address] Dion Barlow MD [facility] [place] [address] Social History Tobacco Use Types Packs/Day Years [...] Vascular Unit Level 3 [place] [address] Bishop Godinez MD [facility] [place] [address] 08/15/2024 9:00 AM EDT Office Visit [place] [address] Dion Barlow MD [facility] [place] [address] 09/01/2024 11:20 AM EDT Office Visit Dermatology at [place] [address] [place] [address] Gómez Mercer MD [facility] DR EDDIE [place] [address] 09/21/2024 2:45 PM EDT Office Visit [facility] [place] [address] Trung Hoyos MD [facility] [place] [address] documented as of this encounter Visit Diagnoses Not on filedocumented in this encounter Care Teams Cell Liner Relationship Specialty Start Date End Date Deacon Watters APRN [address] [place] [address] PCP - General Family Medicine 02/17/22 documented as of this encounter
--- OUTSIDE RECORDS SUMMARY | 2024-06-29 23:32 | XMS_ITS | Encounter Summary ---
Author Organization [facility] Address [facility] [place] [address] Care Team Providers Care Game Farm Helper Name Role Phone Deacon Watters APRN Primary Care Provider +1- [phone] Encounter Details Date Type Department Care Team [...] Vascular Unit Level [place] [address] Bishop Godinez MD [facility] [place] [address] 08/15/2024 9:00 AM EDT Office [place] [address] Dion Barlow MD [facility] [place] [address] 09/01/2024 11:20 AM EDT Office Visit Dermatology at [facility] [address] [place] [address] Gómez Mercer MD [facility] DR [place] [address] 09/21/2024 2:45 PM EDT Office Visit [place] [address] Trung Hoyos MD [facility] [place] [address] documented as of this encounter Visit Diagnoses Not on filedocumented in this encounter Care Teams Game Farm Helper Relationship Specialty Start Date End Date Deacon Watters, JAZMINE [address] [place] [address] PCP - General Family Medicine 02/17/22 documented as of this encounter
--- OUTSIDE RECORDS SUMMARY | 2024-06-29 23:32 | XMS_ITS | Encounter Summary ---
Author Organization [facility] Address [facility] [place] [address] Care Team Providers Care Prime Minister Name Role Phone Deacon Watters APRN Primary Care Provider +1- [phone] Reason for Visit * Reason Comments Neck Pain * Consultation (Routine) - Closed Specialty Diagnoses / Procedures Referred By Contac t Referred To Contact Pain and Spine Center Diagnoses Spondylosis of cervical region without myelopathy or radiculopathy Santiago Morales PA [facility] [place] [address] [facility] [place] [address] Referral ID Status Reason Start Date Expiration Date V isits Requested Visits Authorized [id number] Closed Pain Consult 04/06/2024 04/06/2025 1 1 Encounter Details Date Type Department Care Team (Latest Contact Info) Description 06/22/2024 8:00 AM EDT Office Visit [place] [address] Trung Hoyos MD [facility] [place] [address] Radiculopathy of cervical region (Primary [...] Vascular Unit Level 3 [place] [address] Bishop Godinez MD [facility] [place] [address] 08/15/2024 9:00 AM EDT Office [place] [address] Dion Barlow MD [facility] [place] [address] 09/01/2024 11:20 AM EDT Office Visit Dermatology at [facility] [address] [place] [address] Gómez Mercer MD [facility] DR EDDIE [place] [address] 09/21/2024 2:45 PM EDT Office Visit [place] [address] Trung Hoyos MD [facility] [place] [address] Scheduled Referrals Name Type Priority Associated Diagnoses Orde r Schedule Referral to Pain and Spine Center (Internal only) Outpatient Referral Routine Spondylosis of cervical region without myelopathy or radiculopathy Ordered: 04/06/2024 documented as of this encounter Visit Diagnoses Diagnosis Radiculopathy of cervical region- Primary Brachial neuritis or radiculitis nos documented in this encounter Care Teams Prime Minister Relationship Specialty Start Date End Date Deacon Watters, JAZMINE [address] [place] [address] PCP - General Family Medicine 02/17/22 documented as of this encounter
--- OUTSIDE RECORDS SUMMARY | 2024-06-29 23:32 | XMS_ITS | Encounter Summary ---
Author Organization [facility] Address [facility] [place] [address] Care Team Providers Care Biomass Plant Manager Name Role Phone Deacon Watters APRN Primary Care Provider +1- [phone] Encounter Details Date Type Department Care Team (Latest Contact Info) Description 06/07/2024 12:55 PM EDT - 06/07/2024 11:59 PM EDT Hospital [place] [address] Left sided colitis without complications Discharge Disposition: [...] Vascular Unit Level 3 [place] [address] Bishop Godinez MD [facility] [place] [address] 08/15/2024 9:00 AM EDT Office Visit Gastroenterology at [place] [phone] Dion Barlow MD [facility] [place] [place] [address] 09/01/2024 11:20 AM EDT Office Visit Dermatology at [address] [address] Gómez Mercer MD [facility] DR [place] [address] 09/21/2024 2:45 PM EDT Office Visit [place] [address] Trung Hoyos MD [facility] [place] [address] documented as of this encounter Procedures Procedure [...] Agency Comment Spec In Lab Marcelle Dunnjeovannyjania PHYSICAL THERAPIST CLINIC DIRECTOR MICROBIOLOGY - GE NERAL ORDERABLES [facility] [place] [address] * Campylobacter Antigen (06/07/2024 9:00 AM EDT) Campylobacter Ag Immunoassay Negative for Campylobacter Antigen [facility] Stool 06/07/2024 9:00 AM EDT 06/07/2024 1:32 PM EDT Narrative Resulting Agency Comment Spec In Lab Marcelle Dunnjeovannyjania PHYSICAL THERAPIST CLINIC DIRECTOR MICROBIOLOGY - GE NERAL ORDERABLES Performing Organization Address City/[facility]/ZIP Co de Phone Number [facility] [place] [address] * Stool culture (06/07/2024 9:00 AM EDT) Stool Culture No enteric pathogens isolated [facility] Stool 06/07/2024 9:00 AM EDT 06/07/2024 1:32 PM EDT Narrative Resulting Agency Comment Spec In Lab Marcelle Dunnjeovannyjania PHYSICAL THERAPIST CLINIC DIRECTOR MICROBIOLOGY - GE NERAL ORDERABLES [facility] [place] [address] documented in this encounter Visit Diagnoses Diagnosis Left sided colitis without complications Left sided ulcerative (chronic) colitis documented in this encounter Additional Health Concerns Infection Onset Date Last Indicated Resolved Time Rule Out C. difficile 06/07/2024 06/06/20242023 2:27 PM EDT documented as of this encounter Care Teams Biomass Plant Manager Relationship Specialty Start Date End Date Deacon Watters, JAZMINE [address] [place] [address] PCP - General Family Medicine 02/17/22 documented as of this encounter
--- OUTSIDE RECORDS SUMMARY | 2024-06-29 23:32 | XMS_ITS | Encounter Summary ---
Author Organization Formerly [facility] [facility] Lina [place] [address] Care Team Providers Care Rivet Sticker Name Role Phone Deacon Watters APRN Primary Care Provider +1- [phone] Encounter Details Date Type Department Care Team (Latest Contact Info) Description 01/20/2024 9:28 AM EST - 01/20/2024 11:41 AM EST Hospital En[place] [address] Anthony Hamlin MD [facility] [place] [place] [address] Discharge Disposition: Home Social History Tobacco Use [...] occurs, please contact your Doctor. Please call [phone] before 8pm Mon-Fri with problems, questions or concerns. If you call after 8pm or on weekends, call the Hospital at [phone] and ask to speak to the Animal Chiropractor stone splitter and the polyethylene bag machine operator will contact that person for you. When should you call for help? Call [phone] anytime you think you may need emergency [...] Where can you learn more? [facility] View your After Visit Summary and more online at [email or web address] If you would like to provide feedback about your hospital experience, please call the Office of Patient and Family Relations at . If you have received this After Visit Summary in error, please immediately return it in person to the department, or notify the [facility] Privacy Office by calling toll free at between the hours of 8AM and 5PM to arrange for our retrieval of the documents at no cost to you. Content Version: 12.2 ?? [id number] [employer]. Care instructions adapted under license by [facility]. If you have questions about a medical condition or this instruction, always ask your healthcare professional. [employer] disclaims any warranty or liability for your [...] Vascular Unit Level 3 [place] [address] Bishop Godinez MD [facility] [place] [address] 08/15/2024 9:00 AM EDT Office Visit Gastroenterology at [place] [phone] Dion Barlow MD [facility] [place] [address] 09/01/2024 11:20 AM EDT Office Visit Dermatology at [address] [address] Gómez Mercer MD [facility] [place] [address] 09/21/2024 2:45 PM EDT Office Visit [place] [address] Trung Hoyos MD [facility] [place] [address] documented as of this encounter Procedures Procedure [...] Routine 01/20/2024 10:24 AM EST Colonoscopy, Biopsy ([id number]) 01/20/2024 10:09 AM EST Left sided colitis without complications POCT GLUCOSE Routine 01/20/2024 10:05 AM EST POCT FINGERSTICK GLUCOSE Routine 01/20/2024 10:05 AM EST COLONOSCOPY Routine 01/20/2024 10:01 AM EST documented in this encounter Results * Specimen to Pathology (01/20/2024 10:48 AM EST) AP Specimen 01/20/2024 10:4 8 AM EST 01/20/2024 10:48 AM EST Narrative [facility] - 01/20/2024 10:48 AM EST Specimen requisition ordered. ??Separate Pathology report to follow Anthony Hamlin MD PATHOLOGY/CYTOLOGY O RDMELISSA Performing Organization Address [facility]/RUST Co de Phone Number [facility] [place] [address] * Specimen to Pathology (01/20/2024 10:48 AM EST) AP Specimen 01/20/2024 10:4 8 AM EST 01/20/2024 10:48 AM EST Narrative [facility] - 01/20/2024 10:48 AM EST Specimen requisition ordered. ??Separate Pathology report to follow Anthony Hamlin MD PATHOLOGY/CYTOLOGY O RDMELISSA Performing Organization Address City/[facility]/ZIP Co de Phone Number [facility] [place] [address] * Specimen to Pathology (01/20/2024 10:48 AM EST) AP Specimen 01/20/2024 10:4 8 AM EST 01/20/2024 10:48 AM EST Narrative [facility] - 01/20/2024 10:48 AM EST Specimen requisition ordered. ??Separate Pathology report to follow Anthony Hamlin MD PATHOLOGY/CYTOLOGY O CEE Performing Organization Address [facility]/ZIP Co de Phone Number [facility] [place] [address] * Specimen to Pathology (01/20/2024 10:48 AM EST) AP Specimen 01/20/2024 10:4 8 AM EST 01/20/2024 10:48 AM EST Narrative [facility] - 01/20/2024 10:48 AM EST Specimen requisition ordered. ??Separate Pathology report to follow Anthony Hamlin MD PATHOLOGY/CYTOLOGY O CEE Performing Organization Address [facility]/[place] Co de Phone Number [facility] [place] [address] * Specimen to Pathology (01/20/2024 10:48 AM EST) AP Specimen 01/20/2024 10:4 8 AM EST 01/20/2024 10:48 AM EST Narrative [facility] - 01/20/2024 10:48 AM EST Specimen requisition ordered. ??Separate Pathology report to follow Anthony Hamlin MD PATHOLOGY/CYTOLOGY O CEE Performing Organization Address [facility]/[place] [address] * Specimen to Pathology (01/20/2024 10:48 AM EST) AP Specimen 01/20/2024 10:4 8 AM EST 01/20/2024 10:48 AM EST Narrative [facility] - 01/20/2024 10:48 AM EST Specimen requisition ordered. ??Separate Pathology report to follow Anthony Hamlin MD PATHOLOGY/CYTOLOGY O CEE Performing Organization Address [facility]/[place] Co de Phone Number [facility] [place] [address] * Surgical Pathology Report (01/20/2024 10:24 AM EST) Final Diagnosis [id number] ? Location: 4T; EA12; A The signing [...] Dilip Verified: ??01/29/2024 12:04 ??Pathologist Performed at: ??-[facility] Dept. of Pathology, [place] [address] Clock Repair Technician: Joana Soler MD, FCAP, ??CLIA Certificate: [id number] SPECIMEN(S) SUBMITTED A - right colon, biopsy [...] labeled F1. ??sns 01/29/2024 12:04 PM EST [facility] GI Biopsy 01/20/2024 10:2 4 AM [...] AM EST Anthony Hamlin MD PATHOLOGY/CYTOLOGY O RDERABLES [facility] [place] [address] [facility] [place] [address] * POCT Glucose (01/20/2024 10:05 AM EST) Glucose, POC 114 65 - 199 mg/dL [facility] Comment: Supplemental ranges: <140 mg/dL before meals <180 mg/dL all other times of the day Blood 01/20/2024 10:0 5 AM EST 01/20/2024 10:05 AM EST nAthony Hamlin MD POINT OF CARE TEST O RDERAOMAR [facility] [place] [address] * POCT Fingerstick Glucose (01/20/2024 10:05 AM EST) Glucose, POC 114 60 - 199 mg/dl 01/20/2024 10:0 5 AM EST Anthony Hamlin MD POINT OF CARE TEST O CEE * COLONOSCOPY (01/20/2024 10:01 AM EST) COLONOSCOPY [facility] Endoscopy Procedure Date: 01/20/2024 10:01 AM ? Patient Name: Brian Rodriguez ? [facility]: [id number] ? Date of : 1950 ? Age: 73 ? Order #: [id number] ? Instrument Name: [id number] ? Procedure: ? Colonoscopy Indications: ? Follow-up [...] ? physician, the nurse and the ? hvac technician in the pre-procedure ? area in [...] 01/20/2024 10:0 1 AM EST Deacon Watters PULVERIZER OPERATOR GENERAL SURGICAL O RDERABLES [employer] documented in [...] Danyell Doyle RN)1013 (Given - Provider: Danyell Doyle, RN)1016 (Given - Provider: Danyell Doyle RN)1029 (Given - Provider: Danyell Doyle RN) documented in this encounter Care Teams Rivet Sticker Relationship Specialty Start Date End Date Deacon Watters, JAZMINE [address] [place] [address] PCP - General Family Medicine 02/17/22 documented as of this encounter
--- OUTSIDE RECORDS SUMMARY | 2024-06-29 23:32 | XMS_ITS | Encounter Summary ---
Author Organization [facility] Address [facility] [place] [address] Care Team Providers Care Lapel Baster Name Role Phone Deacon Watters APRN Primary Care Provider +1- [phone] Reason for Visit * Consultation (Routine) - Closed Specialty Diagnoses / Procedures Referred By Contac t Referred To Contact Dermatology Diagnoses Basal cell carcinoma (BCC), unspecified site Becca Villegas APRN [address] [place] [address] [place] [address] Kingsley Finn MD [facility] [address] [place] [address] Referral ID Status Reason Start Date Expiration Date V isits Requested Visits Authorized [id number] Closed Consult, Test & Treat PCP Updated and/or Approved 01/04/2024 01/03/2025 1 1 Encounter Details Date Type Department Care Team (Late st Contact Info) Description 01/28/2024 2:00 PM EST Office Visit Dermatology at [facility] [address] [place] [address] Kingsley Finn MD [facility] DR EDDIE SANCHEZ-DERMATOLOGY [place], [place] [phone] Basal cell carcinoma of right side of [...] and follow up with his or her aeronautical engineering technologist or other skin provider. 5. Discussed avoiding [...] Reviewed and signed by: Kingsley Finn Dermatology [facility] documented in this encounter Plan of Treatment Upcoming Encounters Date Type Department Care Team (Late st Contact Info) Description 07/01/2024 Hospital Encounter Heart and Vascular Unit Level 3 [place] [phone] Bishop Godinez MD [facility] [place] [address] 08/15/2024 9:00 AM EDT Office Visit Gastroenterology at [place] [phone] Dion Barlow MD [facility] [place] [address] 09/01/2024 11:20 AM EDT Office Visit Dermatology at [facility] [address] [place] [address] Gómez Mercer MD [facility] [address] [place] [address] 09/21/2024 2:45 PM EDT Office Visit [place] [address] Trung Hoyos MD [facility] [address] Scheduled Referrals Name Type Priority Associated Diagnoses Orde r Schedule Referral to Dermatology Outpatient Referral Routine Basal cell carcinoma (BCC), unspecified site Ordered: 01/04/2024 documented as of this encounter Visit Diagnoses Diagnosis Basal cell carcinoma of right side of nose Basal cell carcinoma of skin of other and unspecified parts of face documented in this encounter Care Teams Lapel Baster Relationship Specialty Start Date End Date Deacon Watters, HANG GLIDING INSTRUCTOR [address] [place] [address] PCP - General Family Medicine 02/17/22 documented as of this encounter
--- OUTSIDE RECORDS SUMMARY | 2024-06-29 23:32 | XMS_ITS | Encounter Summary ---
Author Organization [facility] Address [facility] [place] [address] Care Team Providers Care Fuel Agent Name Role Phone Deacon Watters APRN Primary Care Provider +1- [phone] Reason for Referral * Physical Therapy (Routine) - Closed Specialty Diagnoses / Procedures Referred By Contac t Referred To Contact Physical Therapy Diagnoses Spondylosis of cervical region without myelopathy or radiculopathy Santiago Morales PA [facility] [place] [address] Physical Therapy, [address] [place] [address] Referral ID Status Reason Start Date Expiration Date V isits Requested Visits Authorized [id number] Closed Evaluate and Treat 01/07/2024 07/05/2024 12 12 Reason for Visit * Reason Comments Neck Pain chronic neck pain/MR I 10/27/23 in [facility] * Consultation (Routine) - Closed Specialty Diagnoses / Procedures Referred By Contac t Referred To Contact Pain and Spine Center Diagnoses Cervicalgia Other chronic pain chronic neck pain/MRI 10/27/23 @ Deacon Clarke APRN [address] [place] [address] [facility] [place] [address] Referral ID Status Reason Start Date Expiration Date V isits Requested Visits Authorized [id number] Closed Consult, Test & Treat PCP Updated and/or Approved 11/11/2023 05/10/2024 1 1 Encounter Details Date Type Department Care Team (Latest Contact Info) Description 01/07/2024 8:45 AM EST Office Visit [facility] [place] [phone] Santiago Morales PA [facility] [place] [address] Spondylosis of cervical region without myelopathy or [...] the [facility] for evaluation. Chief Complaint: Neck pain HPI: [...] light touch. 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 Negativehoffman bilaterally. Imaging: [...] neck pain. He has some left hand local company truck driver weakness but otherwise is neuro intact. Imaging [...] Vascular Unit Level 3 Wing B at [place] [phone] Bishop Godinez MD [facility] [place] [address] 08/15/2024 9:00 AM EDT Office Visit Gastroenterology at [address] Dion Barlow MD [facility] [place] [address] 09/01/2024 11:20 AM EDT Office Visit Dermatology at [address] [phone] Gómez Mercer MD [facility] DR EDDIE [place] [address] 09/21/2024 2:45 PM EDT Office Visit Pain and Spine Center at [place] [phone] Trung Hoyos MD [facility] [place] [address] Scheduled Referrals Name Type Priority Associated Diagnoses Orde r Schedule Referral to Physical Therapy Outpatient Referral Routine Spondylosis of cervical region without myelopathy or radiculopathy Ordered: 01/07/2024 documented as of this encounter Visit Diagnoses Diagnosis Spondylosis of cervical region without myelopathy or radiculopathy Cervical spondylosis without myelopathy documented in this encounter Care Teams Fuel Agent Relationship Specialty Start Date End Date Deacon Watters APRN [address] [place] [address] [address] [place] [address] PCP - General Family Medicine 02/17/22 documented as of this encounter
--- OUTSIDE RECORDS SUMMARY | 2024-06-29 23:32 | XMS_ITS | Encounter Summary ---
Author Organization [facility] Address [address] [place] [address] Care Team Providers Care Technology Sales Representative Name Role Phone Sharad Mcleod MD Primary Care Provider Unavail able Encounter Details Date Type Department Care Team (Late st Contact Info) Description 04/08/2010 Results Only [facility] Laboratory Services - [facility] ([facility]) [address] [place], [place] [id number] Marcelo Agustin, DO [address] [facility] [address] [place], [place] [address] Social History Tobacco Use Types Packs/Day Years [...] ? RODRIGUEZ, BRIAN ? Accession #: ? [id number] ? : ? 1950 (Age: 59) ??M [...] in toto as (D). (Davina Ordoñez)/[facility] ? End of Report ? [facility] 04/08/2010 04/09/2010 16: 29 EDT Marcelo Agustin DO PATHOLOGY ORDER ASHLIE Performing Organization Address City/State/[facility] Co de Phone Number [facility] [address] [place] [address] documented in this encounter Visit Diagnoses Not on filedocumented in this encounter Care Teams Technology Sales Representative Relationship Specialty Start Date End Date Sharad Mcleod MD PCP - General 12/07/09 03/17/16 documented as of this encounter
--- OUTSIDE RECORDS SUMMARY | 2024-06-29 23:32 | XMS_ITS | Encounter Summary ---
Author Organization [facility] Address [facility] [place] [address] Care Team Providers Care Case Supervisor Name Role Phone Deacon Watters APRN Primary Care Provider +1- [phone] Encounter Details Date Type Department Care Team [...] Vascular Unit Level 3 [place] [phone] Bishop Godinez MD [facility] [place] [address] 08/15/2024 9:00 AM EDT Office [place] [address] Dion Barlow MD [facility] [place] [address] 09/01/2024 11:20 AM EDT Office Visit Dermatology at [facility] [address] [place] [address] Gómez Mercer MD [facility] [address] [place] [address] 09/21/2024 2:45 PM EDT Office Visit Pain and Spine Center at [facility] [place] [phone] Trung Hoyos MD [facility] [place] [address] documented as of this encounter Visit Diagnoses Not on filedocumented in this encounter Care Teams Case Supervisor Relationship Specialty Start Date End Date Deacon Watters APRN [address] [place] [address] PCP - General Family Medicine 02/17/22 documented as of this encounter
--- OUTSIDE RECORDS SUMMARY | 2024-06-29 23:32 | XMS_ITS | Encounter Summary ---
Author Organization [facility] Address [address] [place] [address] Care Team Providers Care Hardening Machine Operator Helper Name Role Phone Unavailable Primary Care Provider Unavailabl e Encounter Details Date Type Department Care Team (Late st Contact Info) Description 12/05/2009 Orders Only [facility] Laboratory Services - [facility] ([facility]) [address] [place], [place] [phone] [place] [address] [place] [phone] Social History Tobacco Use Types Packs/Day [...] ? RODRIGUEZ, BRIAN ? Accession #: ? [id number] ? : ? 1950 (Age: 59) ??M [...] ?? lesions suggestive of a neoplastic focus. ??Motor Checker sections are submitted in (A1) and (A2). (Davina Ordoñez)/mpl ? End of Report ? JOSPEHINE ESCOTO 12/05/2009 12/06/2009 8:4 7 EST Jennifer Saenz MD PATHOLOGY ORDERABLES [facility] [address] [place] [address] documented in this encounter Visit Diagnoses Not on filedocumented in this encounter
--- OUTSIDE RECORDS SUMMARY | 2024-06-29 23:32 | XMS_ITS | Encounter Summary ---
Author Organization [facility] Address [address] [place] [address] Care Team Providers Care Health Administrator Name Role Phone Sharad Mcleod MD Primary Care Provider Unavail able Encounter Details Date Type Department Care Team (Late st Contact Info) Description 10/22/2004 Results Only [facility] [address] [place] [address] Maximilian Quiroga MD [address] [place] [phone] Social History Tobacco Use Types Packs/Day Years [...] ? NAYA RODRIGUEZ ? Accession #: ? [id number] ? : ? 1950 (Age: 54) ??M [...] or eosinophils seen in this biopsy. ??(Dr. Hair)/[facility] ?? Document reviewed and electronically signed by: [...] submitted intact in one cassette. ?? (Dr. Terrazas-MS)/[facility] ?? End of Report [facility] 10/22/2004 10/22/2004 14: 58 EST Maximilian Quiroga MD PATHOLOGY ORDERABLES [facility] [address] [place] [address] documented in this encounter Visit Diagnoses Not on filedocumented in this encounter Care Teams Health Administrator Relationship Specialty Start Date End Date Sharad Mcleod MD PCP - General 12/07/09 03/17/16 documented as of this encounter
--- OUTSIDE RECORDS SUMMARY | 2024-06-29 23:32 | XMS_ITS | Encounter Summary ---
Author Organization [facility] Address [facility] [place] [address] Care Team Providers Care Concert Manager Name Role Phone Deacon Watters APRN Primary Care Provider +1- [phone] Encounter Details Date Type Department Care Team (Latest Contact Info) Description 06/06/2024 12:56 PM EDT - 06/06/2024 11:59 PM EDT Hospital [place] [address] Left sided colitis without complications Discharge Disposition: [...] needed for Wheezing. Use with spacer DOT CSOTT U-100 INSULIN 100 unit/mL (3 mL) pen [...] Vascular Unit Level 3 Wing [place] [phone] Bishop Godinez MD [facility] [address] 08/15/2024 9:00 AM EDT Office Visit Gastroenterology at [place] [phone] Dion Barlow MD [facility] [place] [address] 09/01/2024 11:20 AM EDT Office Visit Dermatology at [facility] [address] [place] [address] Gómez eMrcer MD [facility] [place] [address] 09/21/2024 2:45 PM EDT Office Visit [place] [address] Trung Hoyos MD [facility] [place] [address] documented as of this encounter Procedures Procedure Name Priority Date/Time Associated Diagnosis Comments HC C. DIFF QUIK CHEK ANTIGEN Routine 06/06/2024 5:30 PM EDT Left sided colitis without complications CALPROTECTIN,STOOL Routine 06/06/2024 5: 30 PM EDT Left sided colitis without complications documented in this encounter Results * (ABNORMAL) Calprotectin, Stool (06/06/2024 5:30 PM EDT) Calprotectin, Stool 112(H) <=79 mcg/g [facility] Comment: Calprotectin Concentration ? Interpretation ? < 80 mcg/g ?Normal ? 80 ? 160 mcg/g ?Borderline ? >160 mcg/g ?Elevated Stool 06/06/2024 5:30 PM EDT 06/07/2024 1:07 PM EDT Narrative Resulting Agency Comment Spec In Lab MonalisaDg Weinberg DISK OPERATOR BODY FLUIDS AND S TOOLS ORDERABLES Performing Organization Address [facility] de Phone Number [facility] [place] [address] * C. Difficile Screen (06/06/2024 5:30 PM EDT) C Diff Interp Negative Negative [facility] Comment: Ag/Tox Neg C. diff?? Negative Clostridium difficile is not present in the specimen. If patient is having diarrhea suspected to be from an infectious cause, then Soap & Water Contact Precautions are still required. Stool 06/06/2024 5:30 PM EDT 06/07/2024 1:32 PM EDT Narrative Resulting Agency Comment Spec In Lab MonalisaDg Weinberg DISK OPERATOR MICROBIOLOGY - GE NERAL ORDERABLES Performing Organization Address [facility] de Phone Number [facility] [place] [address] documented in this encounter Visit Diagnoses Diagnosis Left sided colitis without complications Left sided ulcerative (chronic) colitis documented in this encounter Care Teams Concert Manager Relationship Specialty Start Date End Date Deacon Watters APRN [address] [place] [address] PCP - General Family Medicine 02/17/22 documented as of this encounter
--- OUTSIDE RECORDS SUMMARY | 2024-06-29 23:32 | XMS_ITS | Clinical Summary ---
Author Organization On License Of [facility] Address [facility] [place] [address] Care Team Providers Care Psychiatric Clinical Nurse Specialist Name Role Phone Deacon Watters APRN Primary Care Provider +1- [phone] Allergies Active Allergy Reactions Criticality Noted Date [...] Overview (12/06/2023): Colonoscopy 04/08/10 (Dr. Gomes [facility]) - inflammation only within the rectum and sigmoid; extent of the exam was to the hepatic flexure; biopsies proximal to the sigmoid nl Repeat exam 11/27/11 ([facility] [...] ascending colon. Several HPs and one TA. [place] 03/2022 - [place] 1 limited to rectosigmoid, diverticulosis. No dysplasia TREATMENT: cortenemas, Asacol, Rowasa, prednisone, and imodium Diabetes mellitus 10/01/2011 Hearing loss 10/01/2011 GERD (gastroesophageal reflux disease) 1 Hydrocele 10/01/2011 Asthma 10/01/2011 Encounters Date Type Department Care Team Description 06/29/2024 7:25 PM EDT Ancillary Procedure [place] [address] Deacon Watters, PHYSICAL THERAPY INSTRUCTOR Arrived 06/29/2024 [place] [address] Ramakrishna Elliott MD 06/29/2024 External [place] [address] 06/22/2024 8:00 AM EDT Office Visit [facility] [place] [address] Trung Hoyos MD Radiculopathy of cervical region (Primary Dx) 06/22/2024 Travel 06/09/2024 Telephone [place] [address] Marcelle Weinberg, JAZMINE 06/07/2024 1:20 PM EDT Office Visit Dermatology at [facility] [address] [place] [phone] Gómez Mercer MD Tinea cruris 06/07/2024 12:55 PM EDT - 06/07/2024 11:59 PM EDT Hospital [place] [address] Left sided colitis without complications Discharge Disposition: Home 06/06/2024 12:56 PM EDT - 06/06/2024 11:59 PM EDT Hospital [place] [address] Left sided colitis without complications Discharge Disposition: Home 06/06/2024 8:00 AM EDT Office [place] [address] Marcelle Weinberg, PHYSICAL THERAPY INSTRUCTOR Left sided colitis without complications 06/06/2024 Telephone [place] [address] Marcelle Weinberg, JAZMINE 06/06/2024 Travel 04/06/2024 8:30 AM EDT Office Visit [facility] [place] [address] Santiago Morales PA Spondylosis of cervical region [...] Level 3 [place] [phone] Bishop Godinez MD [facility] [place] [address] 08/15/2024 9:00 AM EDT Office [place] [address] Dion Barlow MD [facility] GASTROENTEROLOGY [place], [place] [phone] 09/01/2024 11:20 AM EDT Office Visit Dermatology at [address] [address] Gómez Mercer MD [facility] DR EDDIE [place] [address] 09/21/2024 2:45 PM EDT Office Visit [facility] [place] [address] Trung Hoyos MD [facility] [place] [address] Health Maintenance Due Date Last Done Comments [...] DX CHEST Routine 06/29/2024 7:22 PM EDT MISC EXTERNAL CARDIOLOGY RESULT Routine 06/29/2024 4:33 PM EDT SHIGA TOXIN ASSAY Routine 06/07/2024 9:0 0 [...] Recently Relevant to Health Maintenance Results * Film Library- Storage Only DX Chest (06/29/2024 7:22 PM EDT) Narrative [facility] - 06/29/2024 7:22 PM EDT This exam is auto-finalizing. It's purpose is for storage only. Deacon Watters APRN IMG FILM LIBRARY O RDERABLES [place], [place] * External Cardiology Result (06/29/2024 4:33 PM EDT) Anatomical Region Laterality Modality Other Historical Provider EXTERNAL CARDIOLO GY RESULT * Campylobacter Antigen (06/07/2024 9:00 AM EDT) Campylobacter Ag Immunoassay Negative for Campylobacter Antigen [facility] Stool 06/07/2024 9:00 AM EDT 06/07/2024 1:32 PM EDT Narrative Resulting Agency Comment Spec In Lab Marcelle Weinberg PHYSICAL THERAPY INSTRUCTOR MICROBIOLOGY - GE NERAL ORDERABLES Performing Organization Address [facility]/ZIP Co de Phone Number [facility] [place] [address] * Shiga Toxin Detection (06/07/2024 9:00 AM EDT) Shiga Toxin Assay EIA Negative for Shiga Toxin 1 EIA Negative for Shiga Toxin 2 [facility] Stool 06/07/2024 9:00 AM EDT 06/07/2024 1:32 PM EDT Narrative Resulting Agency Comment Spec In Lab Marcelle Weinberg PHYSICAL THERAPY INSTRUCTOR MICROBIOLOGY - GE NERAL ORDERABLES Performing Organization Address [facility] Co de Phone Number [facility] [place] [address] * Stool culture (06/07/2024 9:00 AM EDT) Stool Culture No enteric pathogens isolated [facility] Stool 06/07/2024 9:00 AM EDT 06/07/2024 1:32 PM EDT Narrative Resulting Agency Comment Spec In Lab Marcelle Weinberg PHYSICAL THERAPY INSTRUCTOR MICROBIOLOGY - GE NERAL ORDERABLES Performing Organization Address [facility] Co de Phone Number [facility] [place] [address] * C. Difficile Screen (06/06/2024 5:30 PM EDT) C Diff Interp Negative Negative [facility] Comment: Ag/Tox Neg C. diff?? Negative Clostridium difficile is not present in the specimen. If patient is having diarrhea suspected to be from an infectious cause, then Soap & Water Contact Precautions are still required. Stool 06/06/2024 5:30 PM EDT 06/07/2024 1:32 PM EDT Narrative Resulting Agency Comment Spec In Lab Marcelle Weinberg PHYSICAL THERAPY INSTRUCTOR MICROBIOLOGY - GE NERAL ORDERABLES Performing Organization Address [facility] Co de Phone Number [facility] [place] [address] * (ABNORMAL) Calprotectin, Stool (06/06/2024 5:30 PM EDT) Calprotectin, Stool 112(H) <=79 mcg/g [facility] Comment: Calprotectin Concentration ? Interpretation ? < 80 mcg/g ?Normal ? 80 ? 160 mcg/g ?Borderline ? >160 mcg/g ?Elevated Stool 06/06/2024 5:30 PM EDT 06/07/2024 1:07 PM EDT Narrative Resulting Agency Comment Spec In Lab Marcelle Weinberg PHYSICAL THERAPY INSTRUCTOR BODY FLUIDS AND S TOOLS ORDERABLES Performing Organization Address [facility] Co de Phone Number [facility] [place] [address] * (ABNORMAL) CRP, acute inflammation (06/06/2024 9:04 AM EDT) C-Reactive Protein 6.4(H) <=4.9 mg/L [facility] Blood 06/06/2024 9:04 AM EDT 06/06/2024 9:12 AM EDT Narrative Resulting Agency Comment Spec In Lab Marcelle Weinberg PHYSICAL THERAPY INSTRUCTOR CHEMISTRY ORDERAB LES Performing Organization Address [facility] Co de Phone Number [facility] [place] [address] * (ABNORMAL) Hemogram (06/06/2024 9:04 AM EDT) White Blood Cell 6.2 4.0 - 9.5 x10(3)/[facility] Red Blood Cell 3.68(L) 4.58 - 5.54 x10(6)/[facility] Hemoglobin 12.0(L) 13.7 - 16.5 g/dL [facility] Hematocrit 35.7(L) 40.5 - 48.5 % [facility] Mean Cell Volume 97.0(H) 82.9 - 93.1 fL [facility] Mean Cell Hemoglobin 32.6(H) 27.5 - 32.1 pg [facility] Mean Cell Hemoglobin Concentration 33.6 32.0 - 35.7 g/dL [facility] Platelet 168 145 - 357 x10(3)/[facility] RDW Standard Deviation 46.7(H) 36.0 - 45.0 [facility] RDW coefficient of variation 13.1 11.4 - 13.8 % [facility] Mean Platelet Volume 11.3 7.6 - 12.9 [facility] NRBC% auto 0.0 % [facility] NRBC Absolute 0.000 0.000 - 0.000 x10(3)/[facility] Blood 06/06/2024 9:04 AM EDT 06/06/2024 9:12 AM EDT Narrative Resulting Agency Comment Spec In Lab Marcelle Weinberg PHYSICAL THERAPY INSTRUCTOR HEMATOLOGY ORDERA BLES [facility] [place] [address] * Differential, Automated (06/06/2024 9:04 AM EDT) Neutrophil % 70.3 % [facility] Neutrophil Absolute 4.36 1.70 - 6.10 x10(3)/[facility] Lymph % 19.7 % [facility] Lymphocytes Abs 1.2 0.9 - 3.2 x10(3)/[facility] Monocyte % 7.7 % [facility] Monocyte Abs 0.5 0.3 - 0.9 x10(3)/[facility] Eos % 1.3 % [facility] Eosinophils Abs 0.1 0.0 - 0.4 x10(3)/[facility] Basophil % 0.5 % [facility] Baso Absolute 0.0 0.0 - 0.1 x10(3)/[facility] Immature Gran % 0.50 % [facility] Comment: Immature granulocytes(IG's)percentage and absolute count will include metamyelocytes, myelocytes, and promyelocytes. Blood smears from CBCs yielding IG's will be scanned manually for concordance. If this scan disagrees with the automated IG or if promyelocytes are noted, a manual differential will be performed. Immature Gran Absolute 0.03 0.00 - 0.04 x10(3)/[facility] Blood 06/06/2024 9:04 AM EDT 06/06/2024 9:12 AM EDT Narrative Resulting Agency Comment Spec In Lab Marcelle Wienberg APRN HEMATOLOGY ORDERA BLES Performing Organization Address [facility] Co de Phone Number [facility] [place] [address] * Sedimentation rate (06/06/2024 9:04 AM EDT) Sedimentation Rate Automated 38 3 - 46 mm/hr [facility] Comment: Effective November 02, 2019 new capillary photometric technology has resulted in a change in reference ranges. It is recommended that each ESR result be reviewed with its own age appropriate reference range. Blood 06/06/2024 9:04 AM EDT 06/06/2024 9:12 AM EDT Narrative Resulting Agency Comment Spec In Lab Marcelle Weinberg APRN HEMATOLOGY ORDERA BLES [facility] [place] [address] * Comprehensive metabolic panel (non-fasting) (06/06/2024 9:04 AM EDT) Glucose 136 65 - 199 mg/dL [facility] Comment:Diabetes: >=200 mg/d L plus symptoms Blood Urea Nitrogen 16 10 - 20 mg/dL [facility] Creatinine 1.05 0.80 - 1.50 mg/dL [facility] Sodium 144 135 - 145 mmol/L [facility] Potassium 4.2 3.5 - 5.0 mmol/L [facility] Comment: Please note: ??Patients with WBC >100,000 may have falsely elevated Potassium levels. ??For accurate Potassium quantification in these patients send serum separator tube (gold top) for subsequent determinations. ??Contact the Clinical Chemistry Laboratory if there are any questions. Chloride 107 98 - 107 mmol/L [facility] Carbon Dioxide 26 22 - 31 mmol/L [facility] Anion Gap 11 5 - 15 mmol/L [facility] Calcium 9.8 8.5 - 10.5 mg/dL [facility] Protein, Total 7.6 6.1 - 8.0 g/dL [facility] Albumin 4.1 3.2 - 5.2 g/dL [facility] Aspartate Aminotransferase 16 0 - 39 unit/L [facility] Alanine Aminotransferase 18 0 - 55 unit/L [facility] Alkaline Phosphatase 71 40 - 130 unit/L [facility] Bilirubin, Total 0.5 0.2 - 1.3 mg/dL [facility] Est Glomerular Filtration Rate 74 >=60 mL/min/1. 73 m?? [facility] Comment: This patient's [...] Agency Comment Spec In Lab Marcelle Weinberg PHYSICAL THERAPY INSTRUCTOR CHEMISTRY ORDERAB LES [facility] [place] [address] * COLONOSCOPY (01/20/2024 10:01 AM EST) [facility] Signature COLONOSCOPY [facility] Endoscopy Procedure Date: 01/20/2024 10:01 AM ? Patient Name: Brian Rodriguez ? N: [id number] ? Date of : 1950 ? Age: 73 ? Order #: [id number] ? Instrument Name: [id number] ? Procedure: ? Colonoscopy Indications: ? Follow-up [...] ? physician, the nurse and the ? mechanical test technician in the pre-procedure ? area in [...] Watters APRN GENERAL SURGICAL O RDERABLES [employer] * FLEXIBLE SIGMOIDOSCOPY (03/16/2012 1:15 PM EDT) FLEXIBLE SIGMOIDOSCOPY [facility] Endoscopy Patient Name: Brian Rodriguez ? Procedure Date: 03/16/2012 1:15 PM ? Date of : 1950 ? Age: 61 ? Order #: [id number] ? Procedure: ? Flexible Sigmoidoscopy Indications: ? pt with active UC, assess severity ? prior to entry in MTX study Providers: ? Enrico Tellez MD, April Augustine ? RONY Archibald, Kingsley Oneal, ? Scene And Lighting Design Lecturer Referring MD: ?Maximilian Fall MD Requesting Provider: [...] capacity to make decision: Yes Care Teams Psychiatric Clinical Nurse Specialist Relationship Specialty Start Date End Date Deacon Watters APRN [address] [place] [address] PCP - General Family Medicine 02/17/22
--- OUTSIDE RECORDS SUMMARY | 2024-06-29 23:32 | XMS_ITS | Encounter Summary ---
Author Organization [facility] Address [facility] [place] [address] Care Team Providers Care Machine Packaging Technician Name Role Phone Deacon Watters APRN Primary Care Provider +1- [phone] Encounter Details Date Type Department Care Team (Latest Contact Info) Description 06/06/2024 8:00 AM EDT Office [place] [address] Marcelle Weinberg EDIPHONE OPERATOR [facility] [place] [address] Left sided colitis without complications Social History [...] for cramping - Repeat routine labs today( [facility]) and submit stool calprotectin ( [facility]). - Follow up with Dermatology [...] colitis Overview Note: Colonoscopy 04/08/10 (Dr. Gomes [facility]) - inflammation only within the rectum and sigmoid; extent of the exam was to the hepatic flexure; biopsies proximal to the sigmoid nl Repeat exam 11/27/11 ([facility] [...] ascending colon. Several HPs and one TA. [place] 03/2022 - [place] 1 limited to rectosigmoid, diverticulosis. No dysplasia TREATMENT: cortenemas, Asacol, Rowasa, prednisone, and imodium [place] 12/2023- Ileum was normal. Calvo 1 inflammation [...] - 199 mg/dL Final COLONOSCOPY 01/20/2024 Final Value:[facility] Endoscopy Procedure Date: 01/20/2024 10:01 AM Patient Name: Brian Rodriguez Date of : 1950 Age: 73 Order #: [id number] Instrument Name: [id number]- [id number] Procedure: Colonoscopy Indications: Follow-up of left-sided chronic ulcerative colitis Providers: Danyell Schwartz James A. Fischer Referring MD: Davian Cárdenas MD Medicines: Midazolam 4 mg IV, [...] by the physician, the nurse and the fabrication technician in the pre-procedure area in the [...] the transverse colon (x2) and ascending co aidan. The polyps were 5 to 7 mm [...] 10:01 AM Surgical Pathology Report 01/20/2024 Final Value:[id number] Location: 4T; EA12; A The signing pathologist [...] MD Verified: 01/29/2024 12:04 Pathologist Performed at: -[facility] Dept. of Pathology, [facility] [address] younger, [place], [facility] Continuous Drier Helper: Joana Soler MD, FCAP, CLIA Certificate: [id number] SPECIMEN(S) SUBMITTED A - right colon, biopsy [...] for cramping - Repeat routine labs today( [facility]) and submit stool calprotectin ( [facility]). - Follow up with Dermatology regarding skin rash on your groin. - Follow up with Dr. Barlow in 4 months Please contact me if there are any further questions regarding the care of this patient. Shan Weinberg APRN [facility] Section of Gastroenterology [place] [address] documented in this encounter Plan of Treatment Upcoming Encounters Date Type Department Care Team (Late st Contact Info) Description 07/01/2024 Hospital Encounter Heart and Vascular Unit Level 3 Wing B at [place] [phone] Bishop Godinez MD [facility] [place] [address] 08/15/2024 9:00 AM EDT Office [place] [address] Dion Barlow MD [facility] [place] [address] 09/01/2024 11:20 AM EDT Office Visit Dermatology at [facility] [address] [place] [address] Gómez Mercer MD [facility] DR EDD[place] [address] 09/21/2024 2:45 PM EDT Office Visit [place] [address] Trung Hoyos MD [facility] [place] [address] documented as of this encounter Procedures Procedure [...] PM EDT) C Diff Interp Negative Negative [facility] Comment: Ag/Tox Neg C. diff?? Negative Clostridium difficile is not present in the specimen. If patient is having diarrhea suspected to be from an infectious cause, then Soap & Water Contact Precautions are still required. Stool 06/06/2024 5:30 PM EDT 06/07/2024 1:32 PM EDT Narrative Resulting Agency Comment Spec In Lab MonalisaDg Weinberg EDIPHONE OPERATOR MICROBIOLOGY - GE NERAL ORDERABLES Performing Organization Address [facility] de Phone Number [facility] [place] [address] * (ABNORMAL) Calprotectin, Stool (06/06/2024 5:30 PM EDT) Pathologist [facility] Calprotectin, Stool 112(H) <=79 mcg/g [facility] Comment: Calprotectin Concentration ? Interpretation ? < 80 mcg/g ?Normal ? 80 ? 160 mcg/g ?Borderline ? >160 mcg/g ?Elevated Stool 06/06/2024 5:30 PM EDT 06/07/2024 1:07 PM EDT Narrative Resulting Agency Comment Spec In Lab Marcelle Weinberg EDIPHONE OPERATOR BODY FLUIDS AND S TOOLS ORDERABLES Performing Organization Address [facility] de Phone Number [facility] [place] [address] * Differential, Automated (06/06/2024 9:04 AM EDT) Pathologist [facility] Neutrophil % 70.3 % [facility] Neutrophil Absolute 4.36 1.70 - 6.10 x10(3)/[facility] Lymph % 19.7 % [facility] Lymphocytes Abs 1.2 0.9 - 3.2 x10(3)/[facility] Monocyte % 7.7 % [facility] Monocyte Abs 0.5 0.3 - 0.9 x10(3)/[facility] Eos % 1.3 % [facility] Eosinophils Abs 0.1 0.0 - 0.4 x10(3)/[facility] Basophil % 0.5 % [facility] Baso Absolute 0.0 0.0 - 0.1 x10(3)/[facility] Immature Gran % 0.50 % [facility] Comment: Immature granulocytes(IG's)percentage and [...] Lab Marcelle Weinberg APRN HEMATOLOGY ORDERA BLES [facility] [place] [address] * (ABNORMAL) Hemogram (06/06/2024 9:04 AM EDT) White Blood Cell 6.2 4.0 - 9.5 x10(3)/mc L [facility] Red Blood Cell 3.68(L) 4.58 - 5.54 x10(6)/mc L [facility] Hemoglobin 12.0(L) 13.7 - 16.5 g/dL [facility] Hematocrit 35.7(L) 40.5 - 48.5 % [facility] Mean Cell Volume 97.0(H) 82.9 - 93.1 fL [facility] Mean Cell Hemoglobin 32.6(H) 27.5 - 32.1 pg [facility] Mean Cell Hemoglobin Concentration 33.6 32.0 - 35.7 g/dL [facility] Platelet 168 145 - 357 x10(3)/mc L [facility] RDW Standard Deviation 46.7(H) 36.0 - 45.0 fL [facility] RDW coefficient of variation 13.1 11.4 - 13.8 % [facility] Mean Platelet Volume 11.3 7.6 - 12.9 fL [facility] NRBC% auto 0.0 % [facility] NRBC Absolute 0.000 0.000 - 0.000 x10(3)/mc L [facility] Blood 06/06/2024 9:04 AM EDT 06/06/2024 9:12 AM EDT Narrative Resulting Agency Comment Spec In Lab Marcelle Weinberg EDIPHONE OPERATOR HEMATOLOGY ORDERA BLES Performing Organization Address City/[facility]/ZIP Co de Phone Number [facility] [place] [address] * (ABNORMAL) CRP, acute inflammation (06/06/2024 9:04 AM EDT) C-Reactive Protein 6.4(H) <=4.9 mg/L [facility] Blood 06/06/2024 9:04 AM EDT 06/06/2024 9:12 AM EDT Narrative Resulting Agency Comment Spec In Lab Marcelle Weinberg EDIPHONE OPERATOR CHEMISTRY ORDERAB LES [facility] [place] [address] * Sedimentation rate (06/06/2024 9:04 AM EDT) [...] Agency Comment Spec In Lab Marcelle Dunnjeovannyjania EDIPHONE OPERATOR HEMATOLOGY ORDERA BLES [facility] [place] [address] * Comprehensive metabolic panel (non-fasting) (06/06/2024 9:04 AM EDT) Glucose 136 65 - 199 mg/dL [facility] Comment:Diabetes: >=200 mg/d L plus symptoms Blood Urea Nitrogen 16 10 - 20 mg/dL [facility] Creatinine 1.05 0.80 - 1.50 mg/dL [facility] Sodium 144 135 - 145 mmol/L [facility] Potassium 4.2 3.5 - 5.0 mmol/L [facility] Comment: Please note: ??Patients with WBC >100,000 may have falsely elevated Potassium levels. ??For accurate Potassium quantification in these patients send serum separator tube (gold top) for subsequent determinations. ??Contact the Clinical Chemistry Laboratory if there are any questions. Chloride 107 98 - 107 mmol/L [facility] Carbon Dioxide 26 22 - 31 mmol/L [facility] Anion Gap 11 5 - 15 mmol/L [facility] Calcium 9.8 8.5 - 10.5 mg/dL [facility] Protein, Total 7.6 6.1 - 8.0 g/dL [facility] Albumin 4.1 3.2 - 5.2 g/dL [facility] Aspartate Aminotransferase 16 0 - 39 unit/L [facility] Alanine Aminotransferase 18 0 - 55 unit/L [facility] Alkaline Phosphatase 71 40 - 130 unit/L [facility] Bilirubin, Total 0.5 0.2 - 1.3 mg/dL [facility] Est Glomerular Filtration Rate 74 >=60 mL/min/1. 73 m?? [facility] [...] APRN CHEMISTRY ORDERAB LES Performing Organization Address City/State/[facility] Co de Phone Number [facility] [place] [address] documented in this encounter Visit Diagnoses Diagnosis Left sided colitis without complications Left sided ulcerative (chronic) colitis documented in this encounter Care Teams Machine Packaging Technician Relationship Specialty Start Date End Date Deacon Watters APRN [address] [place] [address] PCP - General Family Medicine 02/17/22 documented as of this encounter
--- OUTSIDE RECORDS SUMMARY | 2024-06-29 23:32 | XMS_ITS | Encounter Summary ---
Author [facility] Address [facility] [place] [address] Care Team Providers Care Survival Equipment Repairer Name Role Phone Deacon Watters APRN Primary Care Provider +1- [phone] Encounter Details Date Type Department Care Team [...] Vascular Unit Level 3 [place] [address] Bishop Godinez MD [facility] [place] [address] 08/15/2024 9:00 AM EDT Office [place] [address] Dion Barlow MD [facility] [place] [address] 09/01/2024 11:20 AM EDT Office Visit Dermatology at [facility] [address] [place] [address] Gómez Mercer MD [facility] [address] [place] [address] 09/21/2024 2:45 PM EDT Office Visit [facility] [place] [address] Trung Hoyos MD [facility] [place] [address] documented as of this encounter Visit Diagnoses Not on filedocumented in this encounter Care Teams Survival Equipment Repairer Relationship Specialty Start Date End Date Deacon Watters, JAZMINE [address] [place] [address] PCP - General Family Medicine 02/17/22 documented as of this encounter
--- OUTSIDE RECORDS SUMMARY | 2024-06-29 23:32 | XMS_ITS | Encounter Summary ---
Author Organization [facility] Address [facility] [place] [address] Care Team Providers Care Abalone Sheller Name Role Phone Deacon Watters APRN Primary Care Provider +1- [phone] Encounter Details Date Type Department Care Team [...] Vascular Unit Level 3 [place] [address] Bishop Godinez MD [facility] [place] [address] 08/15/2024 9:00 AM EDT [place] [address] Dion Barlow MD [facility] [place] [address] 09/01/2024 11:20 AM EDT Office Visit Dermatology at [facility] [address] [place] [address] Gómez Mercer MD [facility] DR EDDIE [place] [address] 09/21/2024 2:45 PM EDT Office Visit [place] [address] Trung Hoyos MD [facility] [place] [address] documented as of this encounter Visit Diagnoses Not on filedocumented in this encounter Care Teams Abalone Sheller Relationship Specialty Start Date End Date Deacon Watters, JAZMINE [address] [place] [address] PCP - General Family Medicine 02/17/22 documented as of this encounter
--- OUTSIDE RECORDS SUMMARY | 2024-06-29 23:32 | XMS_ITS | Encounter Summary ---
Author Organization [facility] Address [facility] [place] [address] Care Team Providers Care Scrap Metal Burner Name Role Phone Deacon Watters APRN Primary Care Provider +1- [phone] Reason for Visit * Reason Comments Basal Cell Carcinoma Encounter Details Date Type Department Care Team (Latest Contact Info) Description 02/17/2024 8:00 AM EDT Procedure visit Dermatology at [facility] [address] [place] [address] Kingsley Finn MD [facility] DR EDDIE [place] [address] Basal cell carcinoma of right side of [...] this encounter Patient Instructions * Patient Instructions* Zuyl Morales RN - 02/17/2024 8:00 AM EDT Your staff Mohs surgeon today was Kingsley Finn MD, PhD. GRAFT CLOSURE Part of all of your wound(s) was repaired by a graft. This means that skin was removed from anotherlocation (donor site) and used to stitch the wound created by your skin cancer surgery. A graft is performed when alternative procedures such as [id number] stitching is not optimal. Your graft may [...] the first week unless told differently. Some suction plate carrier cleaner may need to be delayed or delegated [...] as often as is recommended by your video tape transferrer, for new skin cancers. This is once [...] it. If after hours, please call the filtration operator or [phone] and ask for the video tape transferrer on-call. If you have any non-urgent questions or concerns, please feel free to call my office or contact me through our patient portal, [email or web address], at [email or web address] How to contact us during business hours Dermatology at [facility] [address]: Mohs scheduling or Mohs follow-up appointments: [phone] documented in this encounter Progress Notes * [...] and follow up with his or her video tape transferrer or other skin provider. 5. Discussed avoiding [...] Reviewed and signed by: Kingsley Finn Dermatology [facility] * Kingsley Finn MD - 02/17/2024 8:00 AM EDT Mohs micrographic Surgery Operative Report Patient name: Brian Rodriguez : 1950 Date: 02/17/2024 Staff Surgeon and Pathologist: Kingsley Finn MD PhD Nursing/Travel Counselor(s): Paula Baez RN, Zuly Morales RN, Barbara Platt FOSTER WINDER, Olga Chappell LPN, Vladimir Ward CMA, Inge Forte LPN, Leah PATEL Children'S Librarian (s): Vladimir Alejandro CMA Pre-operative diagnosis: Basal [...] The site was confirmed with the patient/authorized canvas products sales representative/referring physician and/or a photograph form [...] Surgery and Dermatologic Oncology Department of Dermatology [address] [place] [address] OPERATIVE REPORT (REPAIR) Patient Name: Brian Rodriguez Age: 73 y.o. : 1950 Date: 02/17/2024 Staff Surgeon: Kingsley Finn MD PhD Assistants: Zuly Morales RN; Shannen Garcia MD; Magda Edouard MD Diagnosis: Status post Mohs micrographic surgery defect/wound Site: right nasal dorsum Final Defect Size prior to repair: 4 x 2.9 cm Donor site: right nasolabial fold INDICATION: repair and quaker of anatomy/function PROCEDURE: Full-thickness skin graft A [...] Rodriguez Staff Surgeon: Kingsley Finn MD PhD Application Administrator(s): same as above per diem physical therapist assistant: Zuly Morales RN; Magda Edouard MD; Shannen Garcia MD Date: 02/17/2024 Clinical Diagnosis: skin and soft tissue defect status post Mohs micrographic surgery Location/Site: right nasal dorsum Indication: repair of wound with quaker of anatomy/function Defect size to be repaired: [...] Surgery and Dermatologic Oncology Department of Dermatology [address] [place] [address] Note initiated by Zuly Morales RN. Zuly Morales RN has performed the documentation for this encounter in the presence of and acting as a scribe for Dr. Finn I performed the above scribed service and agree with the accuracy of the documentation in this encounter. Reviewed and signed by: Kingsley Finn Dermatology [facility] documented in this encounter Plan of Treatment Upcoming Encounters Date Type Department Care Team (Late st Contact Info) Description 07/01/2024 Hospital Encounter Heart and Vascular Unit Level 3 [place] [address] Bishop Godinez MD [facility] [place] [address] 08/15/2024 9:00 AM EDT Office [place] [address] Dion Barlow MD [facility] [place] [address] 09/01/2024 11:20 AM EDT Office Visit Dermatology at [facility] [address] [place] [address] Gómez Mercer MD [facility] [address] 09/21/2024 2:45 PM EDT Office Visit [place] [address] Trung Hoyos MD [facility] [place] [address] documented as of this encounter Visit Diagnoses Diagnosis Basal cell carcinoma of right side of nose Basal cell carcinoma of skin of other and unspecified parts of face documented in this encounter Care Teams Scrap Metal Burner Relationship Specialty Start Date End Date Deacon Watters, RAIL ENGINEER [address] [place] [address] PCP - General Family Medicine 02/17/22 documented as of this encounter
--- OUTSIDE RECORDS SUMMARY | 2024-06-29 23:32 | XMS_ITS | Encounter Summary ---
Author Organization [facility] Address [facility] [place] [address] Care Team Providers Care Litigation Specialist Name Role Phone Deacon aWtters APRN Primary Care Provider +1- [phone] Reason for Visit * Reason Comments Rash Encounter Details Date Type Department Care Team (Late st Contact Info) Description 06/07/2024 1:20 PM EDT Office Visit Dermatology at [facility] [address] [place] [address] Gómez Mercer MD [facility] DR EDDIE [place] [address] Tinea cruris Social History Tobacco Use Types [...] weeks for Tinea Cruris []Note routed to tribunal member []Recall placed in scheduling system [x]Appointment scheduled at checkout Scribe attestation: Danyell Anton [facility] has performed the documentation for this encounter inthe presence of and acting as a scribe for Gómez Mercer MD. I performed the above scribed service and agree with the accuracy of the documentation in this encounter. Reviewed and signed by: Gómez Mercer MD Dermatology [facility] Patient seen and evaluated with staff bicycle i assembler: Maria G Padilla MD Dermatology [facility] * Maria G Padilla MD - 06/07/2024 [...] as written. My physical examination confirms Gómez Mercer MD's findings. The assessment and plan were formulated in discussion with me at the time of visit, and I agree with them as documented. Maria G Padilla MD Staff Development Technologist Department of Dermatology [facility] documented in this encounter Plan of Treatment Upcoming Encounters Date Type Department Care Team (Late st Contact Info) Description 07/01/2024 Hospital Encounter Heart and Vascular Unit Level 3 [place] [address] Bishop Godinez MD [facility] [place] [address] 08/15/2024 9:00 AM EDT Office [place] [address] Dion Barlow MD [facility] [place] [address] 09/01/2024 11:20 AM EDT Office Visit Dermatology at [address] [phone] Gómez Mercer MD [facility] DR EDDIE [place] [address] 09/21/2024 2:45 PM EDT Office Visit [place] [address] Trung Hoyos MD [facility] [place] [address] documented as of this encounter Visit Diagnoses Diagnosis Tinea cruris Dermatophytosis of groin and perianal area documented in this encounter Additional Health Concerns Infection Onset Date Last Indicated Resolved Time Rule Out C. difficile 06/07/2024 06/06/20242023 2:27 PM EDT documented as of this encounter Care Teams Litigation Specialist Relationship Specialty Start Date End Date Deacon Watters, JAZMINE [address] [place] [address] PCP - General Family Medicine 02/17/22 documented as of this encounter
--- OUTSIDE RECORDS SUMMARY | 2024-06-29 23:32 | XMS_ITS | Encounter Summary ---
Author Organization [facility] [place] [address] Care Team Providers Care Cook Apprentice Pastry Name Role Phone Deacon Watters APRN Primary Care Provider +1- [phone] Encounter Details Date Type Department Care Team (Late st Contact Info) Description 06/06/2024 Telephone [place] [address] Marcelle Weinberg FRUIT TRIMMER [facility] [place] [address] Social History Tobacco Use Types Packs/Day Years [...] Miscellaneous Notes * Telephone Encounter - Marcelle Weniberg APRN - 06/06/2024 11:28 AM EDT I [...] Vascular Unit Level 3 [place] [address] Bishop Godinez MD [facility] [place] [address] 08/15/2024 9:00 AM EDT Office Visit [place] [address] Dion Barlow MD [facility] [place] [address] 09/01/2024 11:20 AM EDT Office Visit Dermatology at [address] [address] Gómez Mercer MD [facility] DR EDDIE [place] [address] 09/21/2024 2:45 PM EDT Office Visit [facility] [place] [address] Trung Hoyos MD [facility] [place] [address] documented as of this encounter Visit Diagnoses Not on filedocumented in this encounter Care Teams Cook Apprentice Pastry Relationship Specialty Start Date End Date Deacon Watters APRN [address] [place] [address] PCP - General Family Medicine 02/17/22 documented as of this encounter
--- OUTSIDE RECORDS SUMMARY | 2024-06-29 23:32 | XMS_ITS | Encounter Summary ---
Author Organization [facility] Address [facility] [place] [address] Care Team Providers Care Veneer Redrier Name Role Phone Deacon Watters APRN Primary Care Provider +1- [phone] Encounter Details Date Type Department Care Team (Late st Contact Info) Description 06/29/2024 [place] [address] Social History Tobacco Use Types Packs/Day Years [...] Vascular Unit Level 3 [place] [address] Bishop Godinez MD [facility] CARDIOLOGY [place] [id number] 08/15/2024 9:00 AM EDT Office [place] [address] Dion Barlow MD [facility] [place] [address] 09/01/2024 11:20 AM EDT Office Visit Dermatology at [facility] [address] [place] [address] Gómez Mercer MD [facility] [place] [address] 09/21/2024 2:45 PM EDT Office Visit Pain and Spine Center at [facility] [place] [address] Trung Hoyos MD [facility] [place] [address] documented as of this encounter Procedures Procedure Name Priority Date/Time Associated Diagnosis Comments MISC EXTERNAL CARDIOLOGY RESULT Routine 06/29/2024 4:33 PM EDT documented in this encounter Results * External Cardiology Result (06/29/2024 4:33 PM EDT) Anatomical Region Laterality Modality Other Historical Provider EXTERNAL CARDIOLO GY RESULT documented in this encounter Visit Diagnoses Not on filedocumented in this encounter Care Teams Veneer Redrier Relationship Specialty Start Date End Date Deacon Watters APRN [address] [place] [address] PCP - General Family Medicine 02/17/22 documented as of this encounter
--- OUTSIDE RECORDS SUMMARY | 2024-06-29 23:32 | XMS_ITS | Encounter Summary ---
Author Organization [facility] Address [facility] [place] [address] Care Team Providers Care Correctional Therapy Director Name Role Phone Deacon Watters APRN Primary Care Provider +1- [phone] Encounter Details Date Type Department Care Team [...] Vascular Unit Level 3 [place] [address] Bishop Godinez MD [facility] [place] [address] 08/15/2024 9:00 AM EDT Office [place] [address] Dion Barlow MD [facility] [place] [address] 09/01/2024 11:20 AM EDT Office Visit Dermatology at [facility] [address] [place] [address] Gómez Mercer MD [facility] DR EDD[place] [address] 09/21/2024 2:45 PM EDT Office Visit [place] [address] Trung Hoyos MD [facility] [place] [address] documented as of this encounter Visit Diagnoses Not on filedocumented in this encounter Care Teams Correctional Therapy Director Relationship Specialty Start Date End Date Deacon Watters, JAZMINE [address] [place] [address] PCP - General Family Medicine 02/17/22 documented as of this encounter
--- OUTSIDE RECORDS SUMMARY | 2024-06-29 23:32 | XMS_ITS | Encounter Summary ---
Author Organization [facility] Address [facility] [place] [address] Care Team Providers Care Continuous Improvement Manager Name Role Phone Deacon Watters APRN Primary Care Provider +1- [phone] Encounter Details Date Type Department Care Team (Late st Contact Info) Description 06/29/2024 [place] [address] Ramakrishna Elliott MD [facility] [place] [address] Social History Tobacco Use Types Packs/Day Years [...] encounter Miscellaneous Notes * Telephone Encounter - Ramakrishna Elliott MD - 06/29/2024 6:02 PM EDT Images from the original note were not included. Initial Contact Date: 06/29/24 Referring Provider: William Patient Location: [facility] HPI: 74 yoM w/ PMHx of HTN, HLD, DM2 who presents with chest pain. Reports chest pain over the past few weeks, worsening in the past few days. Discharged from urgent care earlier today but went back to ED due to unrelenting chest pain. Anterior chest pain radiating to left jaw. No other symptoms. Intermittently having chest pain still in the ED. Vitals: 150/80 - 70 - 16 - afeb Exam: unremarkable Pertinent Diagnostic Findings: ECG: NSR, RBBB BNP 20,000 Trop 4143 Past cardiac studies: N/a OSH Interventions: ASA Plavix Heparin, Statin Assessment: 74 yoM w/ PMHx of HTN, HLD, DM2 who presents with chest pain and found with concern for NSTEMI. Hemodynamically normal, ECG without acute ST changes but troponins uptrending with positive delta. Received ASA load, plavix, statin, and started on hep gtt. Given his history and prior CAD along with ischemic signs and symptoms, will accept transfer for NSTEMI. Recommendations: - trend troponins and ECG - continue ASA, plavix - hep gtt - high intensity statin - bblocker as tolerated - TTE - plan for C Recommendations: Above recommendations were based on my discussion with Dr. briscoe; I have not personally interviewed or examined this patient. Advised to call the transfer center back with any changes in the patient condition. Ramakrishna Elliott MD Supply Chain Assistant documented in this encounter Plan of Treatment Upcoming Encounters Date Type Department Care Team (Late st Contact Info) Description 07/01/2024 Hospital Encounter Heart and Vascular Unit Level 3 [place] [address] Bishop Godinez MD [facility] [place] [address] 08/15/2024 9:00 AM EDT Office [place] [address] Dion Barlow MD [facility] [place] [address] 09/01/2024 11:20 AM EDT Office Visit Dermatology at [facility] [address] [place] [address] Gómez Mercer MD [facility] DR EDD[place] [address] 09/21/2024 2:45 PM EDT Office Visit Pain and Spine Center at [facility] [place] [address] Trung Hoyos MD [facility] [place] [address] documented as of this encounter Visit Diagnoses Not on filedocumented in this encounter Care Teams Continuous Improvement Manager Relationship Specialty Start Date End Date Deacon Watters, PRINTING PRESS OPERATOR [address] [place] [address] PCP - General Family Medicine 02/17/22 documented as of this encounter
--- OUTSIDE RECORDS SUMMARY | 2024-06-29 23:32 | XMS_ITS | Encounter Summary ---
Author Organization [facility] [address] Care Team Providers Care Crane Rigger Name Role Phone Deacon Watters APRN Primary Care Provider +1- [phone] Reason for Referral * Consultation (Routine) - Closed Specialty Diagnoses / Procedures Referred By Contac t Referred To Contact Pain and Spine Center Diagnoses Spondylosis of cervical region without myelopathy or radiculopathy Santiago Morales PA [facility] [place] [address] [facility] [place] [address] Referral ID Status Reason Start Date Expiration Date V isits Requested Visits Authorized [id number] Closed Pain Consult 04/06/2024 04/06/2025 1 1 Reason for Visit * Reason Comments Follow-up Pain Back of neck- right side of neck is worse Encounter Details Date Type Department Care Team (Latest Contact Info) Description 04/06/2024 8:30 AM EDT Office Visit [place] [address] Santiago Morales PA [facility] [place] [address] Spondylosis of cervical region without myelopathy or [...] the [facility] @ [facility] for evaluation. Chief Complaint: Neck pain. Intermittent [...] strength though with slight weakness with left territory sales manager compared to thatof the right. Imaging: No [...] Vascular Unit Level 3 [place] [address] Bishop Godinez MD [facility] [place] [address] 08/15/2024 9:00 AM EDT Office [place] [address] Dion Barlow MD [facility] [place] [address] 09/01/2024 11:20 AM EDT Office Visit Dermatology at [facility] [address] [place] [address] Gómez Mercer MD [facility] DR EDDIE [place] [address] 09/21/2024 2:45 PM EDT Office Visit [place] [address] Trung Hoyos MD [facility] [place] [address] Scheduled Referrals Name Type Priority Associated Diagnoses Orde r Schedule Referral to Pain and Spine Center (Internal only) Outpatient Referral Routine Spondylosis of cervical region without myelopathy or radiculopathy Ordered: 04/06/2024 documented as of this encounter Visit Diagnoses Diagnosis Spondylosis of cervical region without myelopathy or radiculopathy Cervical spondylosis without myelopathy documented in this encounter Care Teams Crane Rigger Relationship Specialty Start Date End Date Deacon Watters APRN [address] [place] [address] PCP - General Family Medicine 02/17/22 documented as of this encounter
--- OUTSIDE RECORDS SUMMARY | 2024-06-29 23:32 | XMS_ITS | Encounter Summary ---
Author Organization Count Includes [facility] Address [facility] Lina [place] [address] Care Team Providers Care Supervisor Maple Products Name Role Phone Deacon Watters APRN Primary Care Provider +1- [phone] Encounter Details Date Type Department Care Team (Late st Contact Info) Description 03/02/2024 2:45 PM EDT Office Visit Dermatology at [facility] [address] [place] [address] [facility] DR EDDIE [place] [address] Visit for suture removal Social History Tobacco [...] 2. Follow up with referring provider or photo printer for skin exams. 3. Follow up with Dr. Keller: as needed Note initiated and signed by Inge Forte LPN documented in this encounter Plan of Treatment Upcoming Encounters Date Type Department Care Team (Late st Contact Info) Description 07/01/2024 Hospital Encounter Heart and Vascular Unit Level 3 Wing B at [place] [phone] [facility] [place] [address] 08/15/2024 9:00 AM EDT Office Visit Gastroenterology at [place] [phone] [facility] [place] [address] 09/01/2024 11:20 AM EDT Office Visit Dermatology at [address] [phone] Gómez Mercer MD [facility] DR EDDIE SANCHEZ-DERMATOLOGY [place], [place] [phone] 09/21/2024 2:45 PM EDT Office Visit Pain and Spine Center at [place] [phone] [facility] [place] [address] documented as of this encounter Visit Diagnoses Diagnosis Visit for suture removal Encounter for removal of sutures documented in this encounter Care Teams Supervisor Maple Products Relationship Specialty Start Date End Date Deacon Watters APRN [address] [place] [address] PCP - General Family Medicine 02/17/22 documented as of this encounter
--- OUTSIDE RECORDS SUMMARY | 2024-06-29 23:32 | XMS_ITS | Encounter Summary ---
Author Organization [facility] Address [facility] [place] [address] Care Team Providers Care Forest And Conservation Worker Name Role Phone Deacon Watters APRN Primary Care Provider +1- [phone] Encounter Details Date Type Department Care Team [...] Vascular Unit Level 3 [place] [phone] Bishop Godinez MD [facility] [place] [address] 08/15/2024 9:00 AM EDT Office [place] [phone] Dion Barlow MD [facility] [place] [address] 09/01/2024 11:20 AM EDT Office Visit Dermatology at [facility] [address] [place] [address] Gómez Mercer MD [facility] DR EDDIE SANCHEZ-[place] [address] 09/21/2024 2:45 PM EDT Office Visit [facility] [place] [phone] Trung Hoyos MD [facility] PAIN [place] [address] documented as of this encounter Visit Diagnoses Not on filedocumented in this encounter Care Teams Forest And Conservation Worker Relationship Specialty Start Date End Date Deacon Watters, JAZMINE [address] [place] [address] PCP - General Family Medicine 02/17/22 documented as of this encounter
--- OUTSIDE RECORDS SUMMARY | 2024-06-29 23:32 | XMS_ITS | Encounter Summary ---
Author Organization [facility] Address [address] [place] [address] Care Team Providers Care Fuel Retrofitting Technician Name Role Phone Unavailable Primary Care Provider Unavailabl e Encounter Details Date Type Department Care Team (Late st Contact Info) Description 10/09/2008 Before PRISM Converted Visit (Maple) [facility] - Maple conversion [address] [place] [address] Yeni Agustin MD [address] [place] [id number] Social History Tobacco Use Types Packs/Day Years [...] ? RODRIGUEZ, BRIAN ? Accession #: ? [id number] ? : ? 1950 (Age: 58) ??M [...] PATHOLOGY ORDERABLE [facility] [address] [place] [address] documented in this encounter Visit Diagnoses Not on filedocumented in this encounter
--- OUTSIDE RECORDS SUMMARY | 2024-06-29 23:32 | XMS_ITS | Encounter Summary ---
Author Organization [facility] [place] [address] Care Team Providers Care Preschool Program Director Name Role Phone Deacon Watters APRN Primary Care Provider +1- [phone] Reason for Visit * Reason Comments Medication Refill Encounter Details Date Type Department Care Team (Late st Contact Info) Description 02/19/2024 [place] [address] Dion Barlow MD [facility] [place] [address] Social History Tobacco Use Types Packs/Day Years [...] Vascular Unit Level 3 [place] [phone] Bishop Godinez MD [facility] [place] [address] 08/15/2024 9:00 AM EDT Office [place] [phone] Dion Barlow MD [facility] [place] [address] 09/01/2024 11:20 AM EDT Office Visit Dermatology at [facility] [address] [place] [phone] Gómez Mercer MD [facility] [place] [address] 09/21/2024 2:45 PM EDT Office Visit [place] [phone] Trung Hoyos MD [facility] [place] [address] documented as of this encounter Visit Diagnoses Not on filedocumented in this encounter Care Teams Preschool Program Director Relationship Specialty Start Date End Date Deacon Watters APRN [address] [place] [address] PCP - General Family Medicine 02/17/22 documented as of this encounter
--- OUTSIDE RECORDS SUMMARY | 2024-06-29 23:32 | XMS_ITS | Encounter Summary ---
Author Organization [facility] Address [facility] [place] [address] Care Team Providers Care Sports Physician Name Role Phone Deacon Watters APRN Primary Care Provider +1- [phone] Encounter Details Date Type Department Care Team (Late st Contact Info) Description 01/20/2024 10:15 AM EST - 01/20/2024 11:00 AM EST [place] [address] Anthony Hamlin MD [facility] [place] [address] COLONOSCOPY FLEXIBLE, WITH BX (WRVU 3.56) Social [...] occurs, please contact your Doctor. Please call [phone] before 8pm Mon-Fri with problems, questions or concerns. If you call after 8pm or on weekends, call the Hospital at [phone] and ask to speak to the Game Show Host seasonal greenery bundler and the tugger operator will contact that person for you. When should you call for help? Call 365 anytime you think you may need emergency [...] any problems. Where can you learn more? [facility] View your After Visit Summary and more online at [email or web address] If you would like to provide [...] cost to you. Content Version: 12.2 ?? 8618-6936 [employer]. Care instructions adapted under license by [facility]. If you have questions about a medical condition or this instruction, always ask your healthcare professional. [employer] disclaims any warranty or liability for your [...] Vascular Unit Level 3 Wing B at [place] [phone] Bishop Godinez MD [facility] [place] [address] 08/15/2024 9:00 AM EDT Office Visit Gastroenterology at [place] [phone] Dion Barlow MD [facility] [place] [address] 09/01/2024 11:20 AM EDT Office Visit Dermatology at [address] [phone] Gómez Mercer MD [facility] DR [place] [address] 09/21/2024 2:45 PM EDT Office Visit Pain and Spine Center at [place] [phone] Trung Hoyos MD [facility] [place] [address] documented as of this encounter Procedures Procedure [...] Routine 01/20/2024 10:24 AM EST Colonoscopy, Biopsy ([id number]) 01/20/2024 10:09 AM EST Left sided colitis without complications POCT GLUCOSE Routine 01/20/2024 10:05 AM EST POCT FINGERSTICK GLUCOSE Routine 01/20/2024 10:05 AM EST COLONOSCOPY Routine 01/20/2024 10:01 AM EST documented in this encounter Results * Specimen to Pathology (01/20/2024 10:48 AM EST) AP Specimen 01/20/2024 10:4 8 AM EST 01/20/2024 10:48 AM EST Narrative [facility] - 01/20/2024 10:48 AM EST Specimen requisition ordered. ??Separate Pathology report to follow Anthony Hamlin MD PATHOLOGY/[place] [address] * Specimen to Pathology (01/20/2024 10:48 AM EST) AP Specimen 01/20/2024 10:4 8 AM EST 01/20/2024 10:48 AM EST Narrative [facility] - 01/20/2024 10:48 AM EST Specimen requisition ordered. ??Separate Pathology report to follow Anthony Hamlin MD PATHOLOGY/[place] [address] * Specimen to Pathology (01/20/2024 10:48 AM EST) AP Specimen 01/20/2024 10:4 8 AM EST 01/20/2024 10:48 AM EST Narrative [facility] - 01/20/2024 10:48 AM EST Specimen requisition ordered. ??Separate Pathology report to follow Anthony Hamlin MD PATHOLOGY/CYTOLOGY O CEE Performing Organization Address [facility] Co de Phone Number [facility] [place] [address] * Specimen to Pathology (01/20/2024 10:48 AM EST) AP Specimen 01/20/2024 10:4 8 AM EST 01/20/2024 10:48 AM EST Narrative [facility] - 01/20/2024 10:48 AM EST Specimen requisition ordered. ??Separate Pathology report to follow Anthony Hamlin MD PATHOLOGY/CYTOLOGY O CEE Performing Organization Address [facility] [place] [address] * Specimen to Pathology (01/20/2024 10:48 AM EST) AP Specimen 01/20/2024 10:4 8 AM EST 01/20/2024 10:48 AM EST Narrative [facility] - 01/20/2024 10:48 AM EST Specimen requisition ordered. ??Separate Pathology report to follow Anthony Hamlin MD PATHOLOGY/CYTOLOGY O CEE Performing Organization Address [facility] Co de Phone Number [facility] [place] [address] * Specimen to Pathology (01/20/2024 10:48 AM EST) AP Specimen 01/20/2024 10:4 8 AM EST 01/20/2024 10:48 AM EST Narrative [facility] - 01/20/2024 10:48 AM EST Specimen requisition ordered. ??Separate Pathology report to follow Anthony Hamlin MD PATHOLOGY/CYTOLOGY O CEE Performing Organization Address [facility] Co de Phone Number [facility] [place] [place] [address] * Surgical Pathology Report (01/20/2024 10:24 AM EST) Final Diagnosis [id number] ? Location: 4T; EA12; A The signing [...] Dilip Verified: ??01/29/2024 12:04 ??Pathologist Performed at: ??-[facility] Dept. of Pathology, [place] [address] Chief Relay Tester: Joana Soler MD, FCAP, ??CLIA Certificate: [id number] SPECIMEN(S) SUBMITTED A - right colon, biopsy [...] labeled F1. ??sns 01/29/2024 12:[address] [facility] GI Biopsy 01/20/2024 10:2 4 [...] EST Anthony Hamlin MD PATHOLOGY/CYTOLOGY O RDERABLES [facility] [place] [address] [facility] [place] [address] * POCT Glucose (01/20/2024 10:05 AM EST) Glucose, POC 114 65 - 199 mg/dL [facility] Comment: Supplemental ranges: <140 mg/dL before meals <180 mg/dL all other times of the day Blood 01/20/2024 10:0 5 AM EST 01/20/2024 10:05 AM EST Anthony Hamlin MD POINT OF CARE TEST O RDERAOMAR [facility] [place] [address] * POCT Fingerstick Glucose (01/20/2024 10:05 AM EST) Glucose, POC 114 60 - 199 mg/dl 01/20/2024 10:0 5 AM EST Anthony Hamlin MD POINT OF CARE TEST O RDERABLES * COLONOSCOPY (01/20/2024 10:01 AM EST) COLONOSCOPY [facility] Endoscopy Procedure Date: 01/20/2024 10:01 AM ? Patient Name: Brian Rodriguez ? N: [id number] ? Date of : 1950 ? Age: 73 ? Order #: [id number] ? Instrument Name: [id number] ? Procedure: ? Colonoscopy Indications: ? Follow-up [...] ? physician, the nurse and the ? body technician/painter in the pre-procedure ? area in the [...] 01/20/2024 10:0 1 AM EST Deacon Watters NON CATEGORICAL PRESCHOOL TEACHER GENERAL SURGICAL O RDERABLES [employer] documented in [...] 1008 (New Bag - Prov ider: Mily Swartz, RONY) PRN Medication Order 01/18/2024 01/19/2024 01/20/2024 [id number] [...] RN) documented in this encounter Care Teams Sports Physician Relationship Specialty Start Date End Date Deacon Watters, JAZMINE [address] [place] [address] PCP - General Family Medicine 02/17/22 documented as of this encounter
--- OUTSIDE RECORDS SUMMARY | 2024-06-29 23:33 | XMS_ITS | Encounter Summary ---
Author Organization [facility] Address [facility] [place] [address] Care Team Providers Care Flight Engineer Manager Name Role Phone Deacon Watters APRN Primary Care Provider +1- [phone] Encounter Details Date Type Department Care Team [...] Vascular Unit Level 3 [place] [phone] Bishop Godinez MD [facility] [place] [address] 08/15/2024 9:00 AM EDT Office Visit [place] [address] Dion Barlow MD [facility] [place] [address] 09/01/2024 11:20 AM EDT Office Visit Dermatology at [facility] [address] [place] [address] Gómez Mercer MD [facility] DR EDDIE [place] [address] 09/21/2024 2:45 PM EDT Office Visit Pain and Spine Center at [facility] [place] [phone] Trung Hoyos MD [facility] [place] [address] documented as of this encounter Visit Diagnoses Not on filedocumented in this encounter Care Teams Flight Engineer Manager Relationship Specialty Start Date End Date Deacon Watters APRN [address] [place] [address] PCP - General Family Medicine 02/17/22 documented as of this encounter
--- OUTSIDE RECORDS SUMMARY | 2024-06-29 23:33 | XMS_ITS | Encounter Summary ---
Author Organization [facility] [place] [address] Care Team Providers Care Nursing Center Tutor Name Role Phone Deacon Watters APRN Primary Care Provider +1- [phone] Reason for Referral * Diagnostic Test (Routine) - Closed Specialty Diagnoses / Procedures Referred By Contac t Referred To Contact Radiology Diagnoses Left sided colitis without complications Procedures CT Abdomen & Pelvis w Contrast Dion Barlow MD [facility] [place] [address] Referral ID Status Reason Start Date Expiration Date V isits Requested Visits Authorized [id number] Closed Specialty Service Requested 04/22/2022 10/22/2023 1 1 Reason for Visit * Diagnostic Test (Routine) - Closed Specialty Diagnoses / Procedures Referred By Contac t Referred To Contact Radiology Diagnoses Left sided colitis without complications Procedures CT Abdomen & Pelvis w Contrast Dion Barlow MD [facility] [place] [address] Referral ID Status Reason Start Date Expiration Date V isits Requested Visits Authorized [id number] Closed Specialty Service Requested 04/22/2022 10/22/2023 1 1 Encounter Details Date Type Department Care Team (Latest Contact Info) Description 09/29/2022 1:05 PM EST - 09/29/2022 11:59 PM EST Hospital [place] [address] Dion Barlow MD [facility] [place] [id number] Left sided colitis without complications Discharge Disposition: [...] Vascular Unit Level 3 [place] [phone] Bishop Godinez MD [facility] [place] [address] 08/15/2024 9:00 AM EDT Office [place] [phone] Dion Barlow MD [facility] [place] [address] 09/01/2024 11:20 AM EDT Office Visit Dermatology at [address] [phone] Gómez Mercer MD [facility] DR [place] [address] 09/21/2024 2:45 PM EDT Office Visit [place] [phone] Trung Hoyos MD [facility] [place] [address] documented as of this encounter Procedures Procedure [...] who have questions please contact the health health care consultant that requested your imaging first. ? Narrative [...] mLs documented in this encounter Care Teams Nursing Center Tutor Relationship Specialty Start Date End Date Deacon Watters, YEAST MAKER [address] [place] [address] [address] [facility] [address] [place] [address] PCP - General Family Medicine 02/17/22 documented as of this encounter
--- OUTSIDE RECORDS SUMMARY | 2024-06-29 23:33 | XMS_ITS | Encounter Summary ---
Author Organization [facility] Address [facility] [place] [address] Care Team Providers Care Side Guider Name Role Phone Deacon Watters APRN Primary Care Provider +1- [phone] Reason for Referral * Diagnostic Test (Routine) - Closed Specialty Diagnoses / Procedures Referred By Contac t Referred To Contact Radiology Diagnoses Left sided colitis without complications Procedures CT Abdomen & Pelvis w Contrast Dion Barlow MD [facility] [place] [address] Referral ID Status Reason Start Date Expiration Date V isits Requested Visits Authorized [id number] Closed Specialty Service Requested 04/22/2022 10/22/2023 1 1 Encounter Details Date Type Department Care Team (Late st Contact Info) Description 04/22/2022 8:00 AM EDT Office [place] [address] Dion Barlow MD [facility] [place] [address] Left sided colitis without complications; Tick bite [...] - CT scan to be arranged at [facility] in [facility] for left lower quadrant abd pain. - [...] Overview Note: ? Colonoscopy 04/08/10 (Dr. Gomes [facility]) - inflammation only within the rectum and sigmoid; extent of the exam was to the hepatic flexure; biopsies proximal to the sigmoid nl ?? Repeat exam 11/27/11 ([facility]): mildly active colitis in the [...] Interval History: Last visit with Farideh Mathur BLADDER TIER 01/2022 Just had colo with Dr. Turner [...] adenopathy and no thyromegaly. HEENT: PERRL, EOMI, IT SERVICE CONTINUITY SUPERVISOR and OP clear without ulceration or lesions. [...] Ref Range Status ??? COLONOSCOPY 03/28/2022 Final Value:[facility] Endoscopy Procedure Date: 03/28/2022 3:15 PM Patient Name: Brian Rodriguez Date of : 1950 Age: 71 Order #: [id number] Instrument Name: [id number] Procedure: Colonoscopy Indications: Follow-up of ulcerative colitis [...] bowel preparation was evaluated using the BBPS ([place] Bowel Preparation Scale) with scores of: Right [...] referring physician. Procedure Code(s): --- Professional --- 13928, Colonoscopy, flexible; with removal of tumor(s), polyp(s), or other lesion(s) by snare technique 86722, 59, Colonoscopy, flexible; with biopsy, single or multiple CPT copyright 2020 [employer]. All rights reserved. The codes documented in this report are preliminary and upon certified marine mechanic review may be revised to meet current compliance requirements. Attending Participation: I personally performed the entire procedure. Moan Turner MD Mona Turner MD 03/28/2022 4:33:58 PM This report has been signed electronically. Number of Addenda: 0 Note Initiated On: 03/28/2022 3:15 PM ??? Surgical Pathology Report 03/28/2022 Final Value:[id number] Location: 4T; EA12; A The signing pathologist [...] Christina Verified: 04/03/2022 15:08 Pathologist Performed at: -[facility] Dept. of Pathology, [place], [place] SPECIMEN(S) SUBMITTED A - Sigmoid bx, [...] en toto in 1 cassette labeled C1. [facility] Outpatient Visit on 02/19/2022 Component Date [...] Final Recent endoscopic procedures 06/28/21 EGD ( [facility]): Pre op Dx; Dysphagia Post op DX: [...] would like to have this done in [facility]. He will keep an eye on [...] - CT scan to be arranged at [facility] in [facility] for left lower quadrant abd pain. - [...] spent 25 min today counseling the patient [id number] on the issues outlined above and 10 minutes reviewing the chart, preparing for this visit, documenting, and implementing the plan. Davina Barlow MD Geophysical Prospecting Permit Agentdirector of labor relations Co-Director, [facility] Section of Gastroenter[place] [address] documented in this encounter Plan of Treatment Upcoming Encounters Date Type Department Care Team (Late st Contact Info) Description 07/01/2024 Hospital Encounter Heart and Vascular Unit Level 3 Wing B at [place] [phone] Bishop Godinez MD [facility] [place] [address] 08/15/2024 9:00 AM EDT Office Visit Gastroenterology at [place] [phone] Dion Barlow MD [facility] [place] [address] 09/01/2024 11:20 AM EDT Office Visit Dermatology at [address] [phone] Gómez Mercer MD [facility] DR EDDIE [place] [address] 09/21/2024 2:45 PM EDT Office Visit Pain and Spine Center at [place] [phone] Trung Hoyos MD [facility] DR [place] [address] documented as of this encounter Procedures Procedure [...] who have questions please contact the health career discovery teacher that requested your imaging first. ? Electronically signed by: Papo Singer MD, [facility] ([phone]), at 09/29/2022 4:46 PM Narrative 09/29/2022 4:46 [...] 8:51 AM EDT) Neutrophil % 68.0 % [facility] Neutrophil Absolute 4.59 1.70 - 6.10 x10(3)/[facility] Lymph % 20.1 % [facility] Lymphocytes Abs 1.4 0.9 - 3.2 x10(3)/[facility] Monocyte % 7.1 % [facility] Monocyte Abs 0.5 0.3 - 0.9 x10(3)/[facility] Eos % 3.8 % [facility] Eosinophils Abs 0.3 0.0 - 0.4 x10(3)/[facility] Basophil % 0.7 % [facility] Baso Absolute 0.0 0.0 - 0.1 x10(3)/[facility] Immature Gran % 0.30 % [facility] Comment: Immature granulocytes(IG's)percentage and absolute count will include metamyelocytes, myelocytes, and promyelocytes. Blood smears from CBCs yielding IG's will be scanned manually for concordance. If this scan disagrees with the automated IG or if promyelocytes are noted, a manual differential will be performed. Immature Gran Absolute 0.02 0.00 - 0.04 x10(3)/[facility] Blood 04/22/2022 8:51 AM EDT 04/22/2022 8:57 AM EDT Narrative Resulting Agency Comment Spec In Lab L Karthik Barlow MD HEMATOLOGY ORDERABLE S [facility] [place] [address] * (ABNORMAL) Hemogram (04/22/2022 8:51 AM EDT) White Blood Cell 6.8 4.0 - 9.5 x10(3)/ L [facility] Red Blood Cell 3.70(L) 4.58 - 5.54 x10(6)/[facility] Hemoglobin 12.4(L) 13.7 - 16.5 g/dL [facility] Hematocrit 37.5(L) 40.5 - 48.5 % [facility] Mean Cell Volume 101.4(H) 82.9 - 93.1 [facility] Mean Cell Hemoglobin 33.5(H) 27.5 - 32.1 pg [facility] Mean Cell Hemoglobin Concentration 33.1 32.0 - 35.7 g/dL [facility] Platelet 198 145 - 357 x10(3)/[facility] LAB[facility] RDW Standard Deviation 45.2(H) 36.0 - 45.0 [facility] RDW coefficient of variation 12.2 11.4 - 13.8 % [facility] Mean Platelet Volume 11.0 7.6 - 12.9 [facility] NRBC% auto 0.0 % [facility] NRBC Absolute 0.000 0.000 - 0.000 x10(3)/[facility] Blood 04/22/2022 8:51 AM EDT 04/22/2022 8:57 AM EDT Narrative Resulting Agency Comment Spec In Lab L Karthik Barlow MD HEMATOLOGY ORDERABLE S [facility] [place] [address] * (ABNORMAL) Basic Metabolic Panel (non-fasting) (04/22/2022 8:51 AM EDT) Glucose 206(H) 65 - 199 mg/dL [facility] Comment:Diabetes: >=200 mg/d L plus symptoms Blood Urea Nitrogen 21(H) 10 - 20 mg/dL [facility] Creatinine 1.17 0.80 - 1.50 mg/dL [facility] Sodium 141 135 - 145 mmol/L [facility] Potassium 4.6 3.5 - 5.0 mmol/L [facility] Comment: Please note: ??Patients with WBC >100,000 may have falsely elevated Potassium levels. ??For accurate Potassium quantification in these patients send serum separator tube (gold top) for subsequent determinations. ??Contact the Clinical Chemistry Laboratory if there are any questions. Chloride 104 98 - 107 mmol/L [facility] Carbon Dioxide 26 22 - 31 mmol/L [facility] Anion Gap 11 5 - 15 mmol/L [facility] Calcium 10.1 8.5 - 10.5 mg/dL [facility] Est Glomerular Filtration Rate 61 >=60 mL/min/1. 73 m?? [facility] Comment: This patient? s [...] Barlow MD CHEMISTRY ORDERABLES Performing Organization Address [facility]/ZIP Co de Phone Number [facility] [place] [address] * CRP, acute inflammation (04/22/2022 8:51 AM EDT) C-Reactive Protein 3.3 <=4.9 mg/L [facility] Blood 04/22/2022 8:51 AM EDT 04/22/2022 8:57 AM EDT Narrative Resulting Agency Comment Spec In Lab L Karthik Barlow MD CHEMISTRY ORDERABLES Performing Organization Address [facility] Co de Phone Number [facility] [place] [address] * Sedimentation rate (04/22/2022 8:51 AM EDT) Sedimentation Rate Automated 36 3 - 46 mm/hr [facility] MD HEMATOLOGY ORDERABLE S Performing Organization Address [facility] Co de Phone Number [facility] [place] [address] documented in this encounter Visit Diagnoses Diagnosis Left sided colitis without complications Left sided ulcerative (chronic) colitis Tick bite of abdominal wall, initial encounter Gastroesophageal reflux disease, unspecified whether esophagitis present Left sided colitis without complications Left sided ulcerative (chronic) colitis documented in this encounter Care Teams Side Guider Relationship Specialty Start Date End Date Deacon Watters APRN [address] [place] [address] PCP - General Family Medicine 02/17/22 documented as of this encounter
--- OUTSIDE RECORDS SUMMARY | 2024-06-29 23:33 | XMS_ITS | Encounter Summary ---
Author Organization [facility] Address [facility] [place] [address] Care Team Providers Care Forensic Investigator Name Role Phone Deacon Watters APRN Primary Care Provider +1- [phone] Encounter Details Date Type Department Care Team (Late st Contact Info) Description 03/28/2022 3:15 PM EDT - 03/28/2022 4:00 PM EDT [place] [phone] Mona Turner MD [facility] DR [place] [address] COLONOSCOPY FLEXIBLE, WITH BX (WRVU 3.56) Social [...] occurs, please contact your Doctor. Please call [phone] before 8pm Mon-Fri with problems, questions or concerns. If you call after 8pm or on weekends, call the Hospital at [phone] and ask to speak to the Transport Nurse airborne operations and the bore miner operator will contact that person for you. When should you call for help? Call [phone] anytime you think you may need emergency [...] any problems. Where can you learn more? [facility] View your After Visit Summary and more online at [email or web address] If you would like to provide feedback [...] cost to you. Content Version: 12.2 ?? [id number] [employer]. Care instructions adapted under license by [facility]. If you have questions about a medical condition or this instruction, always ask your healthcare professional. [employer] disclaims any warranty or liability for your [...] Vascular Unit Level 3 [place] [address] Bishop Godinez MD [facility] [place] [address] 08/15/2024 9:00 AM EDT Office [place] [phone] Dion Barlow MD [facility] [place] [address] 09/01/2024 11:20 AM EDT Office Visit Dermatology at [address] [phone] Gómez Mercer MD [facility] [address] 09/21/2024 2:45 PM EDT Office Visit [place] [address] Trung Hoyos MD [facility] [place] [address] documented as of this encounter Procedures Procedure Name Priority Date/Time Associated Diagnosis Comments SURGICAL PATHOLOGY REPORT Routine 03/28/2022 4:22 PM EDT SPECIMEN TO PATHOLOGY Routine 03/28/2022 4:22 PM EDT SPECIMEN TO PATHOLOGY Routine 03/28/2022 4:22 PM EDT SPECIMEN TO PATHOLOGY Routine 03/28/2022 4:22 PM EDT Colonoscopy, Biopsy ([id number]) 03/28/2022 3:30 PM EDT Other ulcerative colitis with rectal bleeding COLONOSCOPY Routine 03/28/2022 3:15 PM EDT documented in this encounter Results * Surgical Pathology Report (03/28/2022 4:22 PM EDT) Final Diagnosis [id number] ? Location: 4T; EA12; A The signing [...] Christina Verified: ??04/03/2022 15:08 ??Pathologist Performed at: ??-[facility] Dept. of Pathology, [place], [place] SPECIMEN(S) SUBMITTED A - Sigmoid bx, [...] labeled C1. ??shb 04/03/2022 3:08 PM EDT [facility] GI Biopsy 03/28/2022 4:22 PM EDT 03/28/2022 4:22 PM EDT GI Biopsy 03/28/2022 4:22 PM EDT 03/28/2022 4:22 PM EDT GI Biopsy 03/28/2022 4:22 PM EDT 03/28/2022 4:22 PM EDT Mona Turnre MD PATHOLOGY/CYTOLOGY O CEE Performing Organization Address City/[facility]/ZIP Co de Phone Number [facility] [place] [address] * Specimen to Pathology (03/28/2022 4:22 PM EDT) AP Specimen 03/28/2022 4:22 PM EDT 03/28/2022 4:22 PM EDT Narrative [facility] - 03/28/2022 4:22 PM EDT Specimen requisition ordered. ??Separate Pathology report to follow Mona Turner MD PATHOLOGY/[place] [address] * Specimen to Pathology (03/28/2022 4:22 PM EDT) AP Specimen 03/28/2022 4:22 PM EDT 03/28/2022 4:22 PM EDT Narrative [facility] - 03/28/2022 4:22 PM EDT Specimen requisition ordered. ??Separate Pathology report to follow Mona Turner MD PATHOLOGY/CYTOLOGY O CEE Performing Organization Address [facility] [place] [place] [address] * Specimen to Pathology (03/28/2022 4:22 PM EDT) AP Specimen 03/28/2022 4:22 PM EDT 03/28/2022 4:22 PM EDT Narrative [facility] - 03/28/2022 4:22 PM EDT Specimen requisition ordered. ??Separate Pathology report to follow Mona Turner MD PATHOLOGY/CYTOLOGY O [place] Performing Organization Address [facility] [[email or web address]] [place] [address] * COLONOSCOPY (03/28/2022 3:15 PM EDT) COLONOSCOPY [facility] Endoscopy Procedure Date: 03/28/2022 3:15 PM ? Patient Name: Brian Rodriguez ? N: [id number] ? Date of : 1950 ? Age: 71 ? Order #: [id number] ? Instrument Name: -[id number] ? Procedure: ? Colonoscopy Indications: ? Follow-up of ulcerative colitis Providers: ? Mona Turner MD, April Augustine ? Cristela, RONY, Shay Maynard MD: ?Dion. Karthik Barlow MD, Deacon Dior ? Shelly Medicines: ? Midazolam 4 mg IV, Fentanyl [...] ? was evaluated using the BBPS ? ([place] Bowel Preparation Scale) ? with scores of: [...] Procedure Code(s): ? --- Professional --- ? 98821, Colonoscopy, flexible; with ? removal of tumor(s), polyp(s), or ? other lesion(s) by snare technique ? 64062, 59, Colonoscopy, flexible; ? with biopsy, single or multiple CPT copyright 2020 [employer]. All rights reserved. The codes documented in this report are preliminary and upon administrative support manager review may be revised to meet current [...] April Archibald RN)1551 (Given - Provider: April Arhcibald RN) midazolam (pf) (Versed) (1 mg/mL) multi-dose injection (CANCELED) ONCE PRN, Starting on Thu03/28/22 at 1548, Until Thu03/28/22 at 1924, Intra-Operative (Intra-Procedure), Routine 1548 (Given - Provid er: April Archibald RN)1551 (Given - Provider: April Archibald RN)1554 (Given - Provider: April Archibald RN)1605 (Given - Provider: April Archibald RN) documented in this encounter Care Teams Forensic Investigator Relationship Specialty Start Date End Date Deacon Watters, JAZMINE [address] [place] [address] PCP - General Family Medicine 02/17/22 documented as of this encounter
--- OUTSIDE RECORDS SUMMARY | 2024-06-29 23:33 | XMS_ITS | Encounter Summary ---
Author Organization [facility] Address [facility] [place] [address] Care Team Providers Care Hr Intern Name Role Phone Deacon Watters APRN Primary Care Provider +1- [phone] Reason for Referral * Consultation (Routine) - Closed Specialty Diagnoses / Procedures Referred By Contwillard t Referred To Contact Dermatology Diagnoses Basal cell carcinoma (BCC), unspecified site Becca Villegas APRN [address] [place] [address] [place] [address] Kingsley Finn MD [facility] DR [place] [address] Referral ID Status Reason Start Date Expiration Date V isits Requested Visits Authorized [id number] Closed Consult, Test & Treat PCP Updated and/or Approved 01/04/2024 01/03/2025 1 1 Encounter Details Date Type Department Care Team (Late st Contact Info) Description 01/04/2024 Transcribe Orders eDH Incoming Referrals [phone] Becca Villegas APRN [address] [place] [address] [address] [place], [place] [id number] Basal cell carcinoma (BCC), unspecified site (Primary [...] Vascular Unit Level 3 Wing B at [place] [phone] Bishop Godinez MD [facility] [place] [address] 08/15/2024 9:00 AM EDT Office Visit Gastroenterology at [place] [phone] iDon Barlow MD [facility] [place] [address] 09/01/2024 11:20 AM EDT Office Visit Dermatology at [address] [phone] Gómez Mercer MD [facility] DR EDD[place] [address] 09/21/2024 2:45 PM EDT Office Visit [facility] at [place] [phone] Trung Hoyos MD [facility] [place] [address] Scheduled Referrals Name Type Priority Associated Diagnoses Orde r Schedule Referral to Dermatology Outpatient Referral Routine Basal cell carcinoma (BCC), unspecified site Ordered: 01/04/2024 documented as of this encounter Visit Diagnoses Diagnosis Basal cell carcinoma (BCC), unspecified site- Primary documented in this encounter Care Teams Hr Intern Relationship Specialty Start Date End Date Deacon Watters, JAZMINE [address] [place] [address] PCP - General Family Medicine 02/17/22 documented as of this encounter
--- OUTSIDE RECORDS SUMMARY | 2024-06-29 23:33 | XMS_ITS | Encounter Summary ---
Author Organization [facility] [place] [address] Care Team Providers Care Agency Service Representative Name Role Phone Deacon Watters APRN Primary Care Provider +1- [phone] Encounter Details Date Type Department Care Team (Late st Contact Info) Description 11/04/2022 Orders [place] [address] Dianna Shen, RN Other ulcerative colitis with [...] Vascular Unit Level 3 [place] [address] Bishop Godinez MD [facility] [place] [address] 08/15/2024 9:00 AM EDT Office [place] [address] Dion Barlow MD [facility] [place] [address] 09/01/2024 11:20 AM EDT Office Visit Dermatology at [facility] [address] [place] [address] Gómez Mercer MD [facility] DR EDDIE [place] [address] 09/21/2024 2:45 PM EDT Office Visit [facility] and Spine Center at [facility] [place] [phone] Trung Hoyos MD [facility] [place] [address] documented as of this encounter Visit Diagnoses Diagnosis Other ulcerative colitis with rectal bleeding Left sided colitis without complications Left sided ulcerative (chronic) colitis Diarrhea, unspecified type documented in this encounter Care Teams Agency Service Representative Relationship Specialty Start Date End Date Deacon Watters, MAINTENANCE SHOP CLERK [address] [place] [address] PCP - General Family Medicine 02/17/22 documented as of this encounter
--- OUTSIDE RECORDS SUMMARY | 2024-06-29 23:33 | XMS_ITS | Encounter Summary ---
Author Organization [facility] Address [facility] [place] [address] Care Team Providers Care Medicaid Collection Specialist Name Role Phone Deacon Watters APRN Primary Care Provider +1- [phone] Encounter Details Date Type Department Care Team (Latest Contact Info) Description 12/07/2023 8:00 AM EST Office [place] [phone] Dion Barlow MD [facility] [place] [address] Left sided colitis without complications Social History [...] the next approximately eight weeks, please call [phone] to schedule the exam. 5. Repeat routine labs today. 6. Follow-up at the time of colonoscopy and in the office with Farideh Weinberg APRN in about 6-8 months. documented in this encounter Progress Notes * Dion Barlow MD - 12/07/2023 8:00 AM EST Images from the original note were not included. [facility] IBD PROGRAM ESTABLISHED PATIENT VISIT Patient Active Problem List Diagnosis Ulcerative colitis Overview Note: Colonoscopy 04/08/10 (Dr. Gomes [facility]) - inflammation only within the rectum and sigmoid; extent of the exam was to the hepatic flexure; biopsies proximal to the sigmoid nl Repeat exam 11/27/11 ([facility] mildly active colitis in the sigmoid colon [...] ascending colon. Several HPs and one TA. Coin 03/2022 - [place] 1 limited to rectosigmoid, [...] bladder. Was referred to his urologist at [facility]. He reports that he has a lot [...] for further details re current symptoms. - [facility] Gastro Pre-Visit Questionnaire 12/07/2023 7:54 [...] varicosities in both legs HEENT: PERRL, EOMI, ROUND KILN DRAWER and OP clear without ulceration or lesions. LUNGS: Clear to auscultation bilaterally. COR: Regular, normal S1 and S2 without murmurs ABD: Normal active bowel sounds. Soft and non-distended. Mild tenderness to deep palpation in the left lower quadrant more than the right lower quadrant EXT: Trace bilateral edema. Laboratory studies, imaging, and procedures (my review of prior records): Labs reviewed from [facility] 01/2023. CBC stable. Creatinine 1.6. Mild elevation [...] neighbor. He is to follow-up with his office clinician, Deacon Watters APRN, in early December. Also [...] the next approximately 8 weeks, please call [phone] to schedule the exam. 5. Repeat routine labs today. 6. Follow-up at the time of colonoscopy and in the office with Farideh Weinberg APRN in about 6-8 months. Davina Barlow MD Block Making Machine Operatordragline operator helper Co-Director, [facility] Section of [place] [address] documented in this encounter Plan of Treatment Upcoming Encounters Date Type Department Care Team (Late st Contact Info) Description 07/01/2024 Hospital Encounter Heart and Vascular Unit Level 3 [place] [address] Bishop Godinez MD [facility] [place] [address] 08/15/2024 9:00 AM EDT Office [place] [address] Dion Barlow MD [facility] GASTROENTEROLOGY [place], [place] [phone] 09/01/2024 11:20 AM EDT Office Visit Dermatology at [address] [place] [phone] Gómez Mercer MD [facility] [place] [address] 09/21/2024 2:45 PM EDT Office Visit [place] [address] Trung Hoyos MD [facility] [place] [address] Scheduled Orders Name Type Priority Associated Diagnoses [...] 8:53 AM EST) Neutrophil % 70.6 % [facility] Neutrophil Absolute 4.29 1.70 - 6.10 x10(3)/[facility] LAB[facility] Lymph % 20.4 % [facility] Lymphocytes Abs 1.2 0.9 - 3.2 x10(3)/[facility] LABORAT[facility] Monocyte % 5.9 % [facility] Monocyte Abs 0.4 0.3 - 0.9 x10(3)/[facility] LABORAT[facility] Eos % 2.1 % [facility] Eosinophils Abs 0.1 0.0 - 0.4 x10(3)/[facility] LABOR[facility] Basophil % 0.7 % [facility] Baso Absolute 0.0 0.0 - 0.1 x10(3)/[facility] LAB[facility] Immature Gran % 0.30 % [facility] Comment: Immature granulocytes(IG's)percentage and absolute count will include metamyelocytes, myelocytes, and promyelocytes. Blood smears from CBCs yielding IG's will be scanned manually for concordance. If this scan disagrees with the automated IG or if promyelocytes are noted, a manual differential will be performed. Immature Gran Absolute 0.02 0.00 - 0.04 x10(3)/[facility] Blood 12/07/2023 8:53 AM EST 12/07/2023 9:03 AM EST Narrative Resulting Agency Comment Spec In Lab L Karthik Barlow MD HEMATOLOGY ORDERABLE S [place] [address] * (ABNORMAL) Hemogram (12/07/2023 8:53 AM EST) White Blood Cell 6.1 4.0 - 9.5 x10(3)/mc L [facility] Red Blood Cell 3.87(L) 4.58 - 5.54 x10(6)/mc L [facility] Hemoglobin 12.8(L) 13.7 - 16.5 g/dL [facility] Hematocrit 37.5(L) 40.5 - 48.5 % [facility] Mean Cell Volume 96.9(H) 82.9 - 93.1 fL [facility] Mean Cell Hemoglobin 33.1(H) 27.5 - 32.1 pg [facility] Mean Cell Hemoglobin Concentration 34.1 32.0 - 35.7 g/dL [facility] Platelet 199 145 - 357 x10(3)/mc L [facility] RDW Standard Deviation 44.2 36.0 - 45.0 fL [facility] RDW coefficient of variation 12.6 11.4 - 13.8 % [facility] Mean Platelet Volume 11.2 7.6 - 12.9 fL [facility] NRBC% auto 0.0 % [facility] NRBC Absolute 0.000 0.000 - 0.000 x10(3)/ L [facility] Blood 12/07/2023 8:53 AM EST 12/07/2023 9:03 AM EST Narrative Resulting Agency Comment Spec In Lab L Karthik Barlow MD HEMATOLOGY ORDERABLE S [place] [address] * CRP, acute inflammation (12/07/2023 8:53 AM EST) C-Reactive Protein <3.0 <=4.9 mg/L [facility] Blood 12/07/2023 8:53 AM EST 12/07/2023 9:03 AM EST Narrative Resulting Agency Comment Spec In Lab L Karthik Barlow MD CHEMISTRY ORDERABLES [place] [address] * (ABNORMAL) Comprehensive metabolic panel (non-fasting) (12/07/2023 8:53 AM EST) Glucose 140 65 - 199 mg/dL [facility] Comment:Diabetes: >=200 mg/d L plus symptoms Blood Urea Nitrogen 12 10 - 20 mg/dL [facility] Creatinine 1.05 0.80 - 1.50 mg/dL [facility] Sodium 144 135 - 145 mmol/L [facility] Potassium 4.0 3.5 - 5.0 mmol/L [facility] Comment: Please note: ??Patients with WBC >100,000 may have falsely elevated Potassium levels. ??For accurate Potassium quantification in these patients send serum separator tube (gold top) for subsequent determinations. ??Contact the Clinical Chemistry Laboratory if there are any questions. Chloride 109(H) 98 - 107 mmol/L [facility] Carbon Dioxide 24 22 - 31 mmol/L [facility] Anion Gap 11 5 - 15 mmol/L [facility] Calcium 9.5 8.5 - 10.5 mg/dL [facility] Protein, Total 7.8 6.1 - 8.0 g/dL [facility] Albumin 4.2 3.2 - 5.2 g/dL [facility] Aspartate Aminotransferase 13 0 - 39 unit/L [facility] Alanine Aminotransferase 15 0 - 55 unit/L [facility] Alkaline Phosphatase 77 40 - 130 unit/L [facility] Bilirubin, Total 0.4 0.2 - 1.3 mg/dL [facility] Est Glomerular Filtration Rate 74 >=60 mL/min/1. 73 m?? [facility] Comment: This patient's estimated GFR [...] Spec In Lab L Karthik aBrlow MD CHEMISTRY ORDERABLES [facility] [address] documented in this encounter Visit Diagnoses Diagnosis Left sided colitis without complications Left sided ulcerative (chronic) colitis documented in this encounter Care Teams Medicaid Collection Specialist Relationship Specialty Start Date End Date Deacon Watters APRN [address] [place] [address] PCP - General Family Medicine 02/17/22 documented as of this encounter
--- OUTSIDE RECORDS SUMMARY | 2024-06-29 23:33 | XMS_ITS | Encounter Summary ---
Author Organization [facility] [place] [address] Care Team Providers Care Trip Rider Name Role Phone Deacon Watters APRN Primary Care Provider +1- [phone] Encounter Details Date Type Department Care Team (Late st Contact Info) Description 11/10/2022 Telephone [place] [address] Dianna Shen RN Social History [...] Vascular Unit Level 3 [place] [address] Bishop Godinez MD [facility] [place] [address] 08/15/2024 9:00 AM EDT Office Visit [place] [address] Dion Barlow MD [facility] [place] [address] 09/01/2024 11:20 AM EDT Office Visit Dermatology at [place] [address] [place] [phone] Gómez Mercer MD [facility] [address] 09/21/2024 2:45 PM EDT Office Visit [facility] [place] [address] Trung Hoyos MD [facility] [place] [address] documented as of this encounter Visit Diagnoses Not on filedocumented in this encounter Care Teams Trip Rider Relationship Specialty Start Date End Date Deacon Watters APRN [address] [place] [address] PCP - General Family Medicine 02/17/22 documented as of this encounter
--- OUTSIDE RECORDS SUMMARY | 2024-06-29 23:33 | XMS_ITS | Encounter Summary ---
Author Organization [facility] [place] [address] Care Team Providers Care Pilot Fuel Engineer Name Role Phone Josue Wilkinson MD Primary Care Provider [phone] Reason for Visit * Reason Onset Date Comments Medication Refill 05/06/2021 Encounter Details Date Type Department Care Team (Late st Contact Info) Description 05/06/2021 Refill [place] [phone] Marcelle Weinberg APRN [facility] [place] [address] Social History Tobacco Use Types Packs/Day Years [...] Vascular Unit Level 3 [place] [phone] Bishop Godinez MD [facility] [place] [address] 08/15/2024 9:00 AM EDT Office [place] [address] Dion Barlow MD [facility] [place] [address] 09/01/2024 11:20 AM EDT Office Visit Dermatology at [facility] [address] [place] [phone] Gómez Mercer MD [facility] DR EDDIE [place] [address] 09/21/2024 2:45 PM EDT Office Visit Pain and Spine Center at [place] [phone] Trung Hoyos MD [facility] [place] [address] documented as of this encounter Visit Diagnoses Not on filedocumented in this encounter Care Teams Pilot Fuel Engineer Relationship Specialty Start Date End Date Josue Wilkinson MD PCP - General General Internal Medicine 02/14/21 9/3 documented as of this encounter
--- OUTSIDE RECORDS SUMMARY | 2024-06-29 23:33 | XMS_ITS | Encounter Summary ---
Author Organization [facility] [place] [address] Care Team Providers Care Special Delivery Worker Name Role Phone Deacon Watters APRN Primary Care Provider +1- [phone] Encounter Details Date Type Department Care Team (Late st Contact Info) Description 12/07/2023 [place]phone [place] [phone] Estela Phillips Social History Tobacco Use Types [...] - 12/07/2023 10:47 AM EST Brian Rodriguez [id number] Diagnosis/Indication: UC surveillance Please review patient chart [...] procedure? No You must have a responsible alliance party who will drive you to your procedure, stay on campus for the entire duration of your procedure, and drive you home from your procedure. Who will likely be your nascar driver for the procedure? *Please Verify the [...] Vascular Unit Level 3 [place] [address] Bishop Godinez MD [facility] [place] [address] 08/15/2024 9:00 AM EDT Office Visit Gastroenterology at [place] [phone] Dion Barlow MD [facility] [place] [address] 09/01/2024 11:20 AM EDT Office Visit Dermatology at [address] [address] Gómez Mercer MD [facility] DR ED[place] [address] 09/21/2024 2:45 PM EDT Office Visit [place] [address] Trung Hoyos MD [facility] [place] [address] documented as of this encounter Visit Diagnoses Not on filedocumented in this encounter Care Teams Special Delivery Worker Relationship Specialty Start Date End Date Deacon Watters, JAZMINE [address] [place] [address] PCP - General Family Medicine 02/17/22 documented as of this encounter
--- OUTSIDE RECORDS SUMMARY | 2024-06-29 23:33 | XMS_ITS | Encounter Summary ---
Author Organization [facility] [address] Care Team Providers Care Installer Helper Name Role Phone Deacon Watters APRN Primary Care Provider +1- [phone] Encounter Details Date Type Department Care Team (Late st Contact Info) Description 10/15/2022 Telephone [place] [address] Roselia Coronado Social History [...] Vascular Unit Level 3 [place] [phone] Bishop Godinez MD [facility] [place] [address] 08/15/2024 9:00 AM EDT Office Visit Gastroenterology at [place] [phone] Dion Barlow MD [facility] [place] [address] 09/01/2024 11:20 AM EDT Office Visit Dermatology at [place] [address] [place] [address] Gómez Mercer MD [facility] [place] [address] 09/21/2024 2:45 PM EDT Office Visit [facility] and Spine Center at [place] [phone] Trung Hoyos MD [facility] [place] [address] documented as of this encounter Visit Diagnoses Not on filedocumented in this encounter Care Teams Installer Helper Relationship Specialty Start Date End Date Deacon Watters APRN [address] [place] [address] [address] [place] [address] PCP - General Family Medicine 02/17/22 documented as of this encounter
--- OUTSIDE RECORDS SUMMARY | 2024-06-29 23:33 | XMS_ITS | Encounter Summary ---
Author Organization [facility] Address [facility] [place] [address] Care Team Providers Care Talent Acquisition Specialist Name Role Phone Deacon Watters APRN Primary Care Provider +1- [phone] Encounter Details Date Type Department Care Team (Late st Contact Info) Description 02/26/2022 Orders Only [place] [address] Dianna Shen, RN Other ulcerative [...] Vascular Unit Level 3 [place] [address] Bishop Godinez MD [facility] [place] [address] 08/15/2024 9:00 AM EDT Office Visit [place] [address] Dion Barlow MD [facility] [place] [address] 09/01/2024 11:20 AM EDT Office Visit Dermatology at [facility] [address] [place] [address] Gómez Mercer MD [facility] DR [place] [address] 09/21/2024 2:45 PM EDT Office Visit [facility] [place] [phone] Trung Hoyos MD [facility] [place] [address] documented as of this encounter Results * CRP, acute inflammation (09/29/2022 12:09 PM EST) C-Reactive Protein <3.0 <=4.9 mg/L [facility] Blood 09/29/2022 12:0 9 PM EST 09/29/2022 12:15 PM EST Narrative Resulting Agency Comment Spec In Lab Marcelle Weinberg PROTECTION MGR CHEMISTRY ORDERAB LES [facility] [place] [address] * Sedimentation rate (09/29/2022 12:09 PM EST) [facility] Signature Sedimentation Rate Automated 38 3 - 46 mm/hr [facility] Comment: Effective November 02, 2019 new capillary photometric technology has resulted in a change in reference ranges. It is recommended that each ESR result be reviewed with its own age appropriate reference range. Blood 09/29/2022 12:0 9 PM EST 09/29/2022 12:15 PM EST Narrative Resulting Agency Comment Spec In Lab Marcelle Weinberg PROTECTION MGR [place]AT[place] [address] documented in this encounter Visit Diagnoses Diagnosis Other ulcerative colitis with rectal bleeding documented in this encounter Care Teams Talent Acquisition Specialist Relationship Specialty Start Date End Date Deacon Watters APRN [address] [place] [address] PCP - General Family Medicine 02/17/22 documented as of this encounter
--- OUTSIDE RECORDS SUMMARY | 2024-06-29 23:33 | XMS_ITS | Encounter Summary ---
Author Organization [facility] [place] [address] Care Team Providers Care Corporate Development Analyst Name Role Phone Deacon Watters APRN Primary Care Provider +1- [phone] Encounter Details Date Type Department Care Team (Late st Contact Info) Description 02/12/2023 Telephone [place] [phone] Kelly Castillo, RN Social History Tobacco Use [...] local ER. He would likely go to [facility] if this is the case. Will ask regular IBD team to f/u with him in the AM. documented in this encounter Plan of Treatment Upcoming Encounters Date Type Department Care Team (Late st Contact Info) Description 07/01/2024 Hospital Encounter Heart and Vascular Unit Level 3 [place] [address] Bishop Godinez MD [facility] [place] [address] 08/15/2024 9:00 AM EDT Office Visit Gastroenterology at [place] [phone] Dion Barlow MD [facility] [place] [address] 09/01/2024 11:20 AM EDT Office Visit Dermatology at [address] [place] [address] Gómez Mercer MD [facility] [place] [address] 09/21/2024 2:45 PM EDT Office Visit [place] [phone] Trung Hoyos MD [facility] [place] [address] documented as of this encounter Visit Diagnoses Not on filedocumented in this encounter Care Teams Corporate Development Analyst Relationship Specialty Start Date End Date Deacon Watters, JAZMINE [facility] [address] [place] [address] PCP - General Family Medicine 02/17/22 documented as of this encounter
--- OUTSIDE RECORDS SUMMARY | 2024-06-29 23:33 | XMS_ITS | Encounter Summary ---
Author Organization [facility] [place] [address] Care Team Providers Care Vineyard Worker Name Role Phone Unknown Primary Care Provider Unavailabl e Encounter Details Date Type Department Care Team (Latest Contact Info) Description 08/26/2021 9:30 AM EDT Office Visit [place] [phone] Dion Barlow MD [facility] [place] [address] Other ulcerative colitis with rectal bleeding; Left [...] manometry. - Obtain upper endoscopy report from [facility] in June 2021 - Avoid non-steroidal anti-inflammatory [...] Overview Note: ?? Colonoscopy 04/08/10 (Dr. Gomes [facility]) - inflammation only within the rectum and sigmoid; extent of the exam was to the hepatic flexure; biopsies proximal to the sigmoid nl ?? Repeat exam 11/27/11 ([facility]): mildly active colitis in the [...] dysphagia to solids. Had an EGD at [facility] in Jun and recalls was normal. No [...] manometry. - Obtain upper endoscopy report from [facility] in June 2021 - Avoid non-steroidal anti-inflammatory medications (NSAIDs) including but not limited to Advil, ibuprofen, Motrin, Aleve, Excedrin, naproxen, Mobic, indomethacin, and aspirin. Acetaminophen (Tylenol) is okay for aches and pains. - Follow-up in 6 months - will schedule colonoscopy at that time. I spent 30 min today reviewing the chart preparing for this visit, counseling the patient [id number] on the issues outlined above, and documenting an implementing the plan. Davina Barlow MD Protocol Officerit operations manager Co-Director, [facility] Section of Gastroenter[place] [address] documented in this encounter Plan of Treatment Upcoming Encounters Date Type Department Care Team (Late st Contact Info) Description 07/01/2024 Hospital Encounter Heart and Vascular Unit Level 3 [place] [address] Bishop Godinez MD [facility] [place] [address] 08/15/2024 9:00 AM EDT Office Visit [place] [address] Dion Barlow MD [facility] [place] [address] 09/01/2024 11:20 AM EDT Office Visit Dermatology at [place] [address] [place] [phone] Gómez Mercer MD [facility] [place] [address] 09/21/2024 2:45 PM EDT Office Visit [facility] [place] [phone] Trung Hoyos MD [facility] [place] [address] documented as of this encounter Visit Diagnoses Diagnosis Other ulcerative colitis with rectal bleeding Left sided colitis without complications Left sided ulcerative (chronic) colitis documented in this encounter Care Teams Vineyard Worker Relationship Specialty Start Date End Date Unknown None PCP - General 08/23/21 02/16/22 documented as of this encounter
--- OUTSIDE RECORDS SUMMARY | 2024-06-29 23:33 | XMS_ITS | Encounter Summary ---
Author Organization [facility] [place] [address] Care Team Providers Care Security Investigator Name Role Phone Deacon Watters APRN Primary Care Provider +1- [phone] Encounter Details Date Type Department Care Team (Late st Contact Info) Description 05/05/2022 Telephone [place] [phone] Dianna Shen RN Social History Tobacco Use [...] holding on CT altogether. Discussed this with Brian and told him to call us if his abdominal pain worsens. * Telephone Encounter - Margoth Mcdermtot - 05/23/2022 8:27 AM EDT Marbella from [facility] called to check on the status of this CT she can be reached at [phone]. * Telephone Encounter - Dianna Shen RN - 05/19/2022 11:04 AM EDT 05/16 TC to Brian to see where is at as far as abdominal pain. He states that pain has not improved. Asked if he has metal in his body and he states that he does. * Telephone Encounter - Dianna Shen RN - 05/05/2022 4:20 PM EDT left from radiology at [facility]. Due to contrast shortage, contrast IV is [...] Vascular Unit Level 3 [place] [phone] Bishop Godinez MD [facility] [place] [address] 08/15/2024 9:00 AM EDT Office Visit [place] [phone] Dion Barlow MD [facility] [place] [address] 09/01/2024 11:20 AM EDT Office Visit Dermatology at [facility] [address] [place] [address] Gómez Mercer MD [facility] DR EDDIE [place] [address] 09/21/2024 2:45 PM EDT Office Visit [facility] [place] [address] Trung Hoyos MD [facility] [place] [address] documented as of this encounter Visit Diagnoses Not on filedocumented in this encounter Care Teams Security Investigator Relationship Specialty Start Date End Date Deacon Watters, PLASTICS TECHNICIAN [address] [place] [address] PCP - General Family Medicine 02/17/22 documented as of this encounter
--- OUTSIDE RECORDS SUMMARY | 2024-06-29 23:33 | XMS_ITS | Encounter Summary ---
Author Organization [facility] Address [facility] [place] [address] Care Team Providers Care Returned Goods Receiving Clerk Name Role Phone Deacon Watters APRN Primary Care Provider +1- [phone] Encounter Details Date Type Department Care Team (Late st Contact Info) Description 09/29/2022 11:00 AM EST Office [place] [address] Marcelle Weinberg BRAZING FURNACE FEEDER [facility] [place] [address] Left sided colitis without complications; Other ulcerative [...] this encounter Progress Notes * Marcelle Weinberg, BRAZING FURNACE FEEDER - 09/29/2022 11:00 AM EST Primary care [...] Overview Note: ? Colonoscopy 04/08/10 (Dr. Gomes [facility]) - inflammation only within the rectum and sigmoid; extent of the exam was to the hepatic flexure; biopsies proximal to the sigmoid nl ?? [place] [place] mildly [...] that it was cancer, followed by Dr. Carirllo, at [facility]. IBD Questionnaire No questionnaires on file. [...] Vitals: 09/29/22 1108 BP: 153/72 BP Location ([facility]): Left arm Patient Position: Sitting BP Cuff [...] Disease Center Section of Gastroenterology and Hepatology [address] [address] documented in this encounter Miscellaneous Notes * Addendum Note - Andres De Dios - 09/29/2022 11:00 AM ESTAddended by: ANDRES DE DIOS on: 09/29/2022 12:05 PM Modules accepted: Orders documented in this encounter Plan of Treatment Upcoming Encounters Date Type Department Care Team (Late st Contact Info) Description 07/01/2024 Hospital Encounter Heart and Vascular Unit Level 3 Wing B [facility] [place] [address] Bishop Godinez MD [facility] [place] [address] 08/15/2024 9:00 AM EDT Office [place] [address] Dion Barlow MD [facility] [place] [address] 09/01/2024 11:20 AM EDT Office Visit Dermatology at [place] [address] [place] [address] Gómez Mercer MD [facility] [place] [address] 09/21/2024 2:45 PM EDT Office Visit [place] [address] Trung Hoyos MD [facility] [place] [address] documented as of this encounter Procedures Procedure [...] Rate Automated 38 3 - 46 mm/hr [facility] Comment: Effective November 02, 2019 new capillary photometric technology has resulted in a change in reference ranges. It is recommended that each ESR result be reviewed with its own age appropriate reference range. Blood 09/29/2022 12:0 9 PM EST 09/29/2022 12:15 PM EST Narrative Resulting Agency Comment Spec In Lab Marcelle Weinberg BRAZING FURNACE FEEDER HEMATOLOGY ORDERA BLES Performing Organization Address City/[facility]/ZIP Co de Phone Number [facility] [place] [address] * CRP, acute inflammation (09/29/2022 12:09 PM EST) C-Reactive Protein <3.0 <=4.9 mg/L [facility] Blood 09/29/2022 12:0 9 PM EST 09/29/2022 12:15 PM EST Narrative Resulting Agency Comment Spec In Lab Marcelle Weinberg BRAZING FURNACE FEEDER CHEMISTRY ORDERAB LES Performing Organization Address City/[facility] Co de Phone Number [facility] [place] [address] * Creatinine (09/29/2022 12:09 PM EST) Creatinine 1.10 0.80 - 1.50 mg/dL [facility] Est Glomerular Filtration Rate 70 >=60 mL/min/1. 73 m?? [facility] Comment: This patient's estimated GFR [...] Comment Spec In Lab Marcelle Conte Sultana BRAZING FURNACE FEEDER CHEMISTRY ORDERAB LES [facility] [place] [address] documented in this encounter Visit Diagnoses Diagnosis Left sided colitis without complications Left sided ulcerative (chronic) colitis Other ulcerative colitis with rectal bleeding documented in this encounter Care Teams Returned Goods Receiving Clerk Relationship Specialty Start Date End Date Deacon Watters APRN [address] [place] [address] [address] [facility] [place] [address] PCP - General Family Medicine 02/17/22 documented as of this encounter
--- OUTSIDE RECORDS SUMMARY | 2024-06-29 23:33 | XMS_ITS | Encounter Summary ---
Author Organization [facility] [place] [address] Care Team Providers Care Litigation Docket Manager Name Role Phone Deacon Watters APRN Primary Care Provider +1- [phone] Encounter Details Date Type Department Care Team (Late st Contact Info) Description 10/06/2022 Telephone [place] [address] Marcelle Weinberg THEOLOGY PROFESSOR [facility] [place] [address] Social History Tobacco Use Types Packs/Day Years [...] of this CT to Paula Alonso ( [facility]) and he would also give her office a call. documented in this encounter Plan of Treatment Upcoming Encounters Date Type Department Care Team (Late st Contact Info) Description 07/01/2024 Hospital Encounter Heart and Vascular Unit Level 3 [place] [address] Bishop Godinez MD [facility] [place] [address] 08/15/2024 9:00 AM EDT Office Visit [place] [address] Dion Barlow MD [facility] [place] [address] 09/01/2024 11:20 AM EDT Office Visit Dermatology at [facility] [address] [place] [address] Gómez Mercer MD [facility] DR EDDIE [place] [address] 09/21/2024 2:45 PM EDT Office Visit [facility] [place] [address] Trung Hoyos MD [facility] [place] [address] documented as of this encounter Visit Diagnoses Not on filedocumented in this encounter Care Teams Litigation Docket Manager Relationship Specialty Start Date End Date Deacon Watters APRN [address] [place] [address] PCP - General Family Medicine 02/17/22 documented as of this encounter
--- OUTSIDE RECORDS SUMMARY | 2024-06-29 23:33 | XMS_ITS | Encounter Summary ---
Author Organization [facility] [place] [address] Care Team Providers Care Meringuer Name Role Phone Deacon Watters APRN Primary Care Provider +1- [phone] Reason for Visit * Reason Onset Date Comments Medication Refill 08/22/2022 Encounter Details Date Type Department Care Team (Late st Contact Info) Description 08/22/2022 [place] [address] Dion Barlow MD [facility] [place] [address] Social History Tobacco Use Types Packs/Day Years [...] Vascular Unit Level 3 [place] [address] Bishop Godinez MD [facility] [place] [address] 08/15/2024 9:00 AM EDT Office [place] [address] Dion Barlow MD [facility] [place] [address] 09/01/2024 11:20 AM EDT Office Visit Dermatology at [facility] [address] [place] [address] Gómez Mercer MD [facility] DR EDDIE [place] [address] 09/21/2024 2:45 PM EDT Office Visit Pain and Spine Center at [place] [phone] Trung Hoyos MD [facility] [place] [address] documented as of this encounter Visit Diagnoses Not on filedocumented in this encounter Care Teams Meringuer Relationship Specialty Start Date End Date Deacon Watters APRN [address] [place] [address] PCP - General Family Medicine 02/17/22 documented as of this encounter
--- OUTSIDE RECORDS SUMMARY | 2024-06-29 23:33 | XMS_ITS | Encounter Summary ---
Author Organization [facility] Address [facility] [place] [address] Care Team Providers Care Crawler Crane Operator Name Role Phone Josue Wilkinson MD Primary Care Provider [phone] Encounter Details Date Type Department Care Team (Latest Contact Info) Description 05/31/2021 1:35 PM EDT Laboratory Appointment Lab [address]L [place] [address] Left sided colitis without complications Social History [...] Vascular Unit Level 3 [place] [address] Bishop Godinez MD [facility] [place] [address] 08/15/2024 9:00 AM EDT Office Visit [place] [address] Dion Barlow MD [facility] [place] [address] 09/01/2024 11:20 AM EDT Office Visit Dermatology at [facility] [address] [place] [address] Gómez Mercer MD [facility] DR [place] [address] 09/21/2024 2:45 PM EDT Office Visit Pain and Spine Center at [facility] [place] [address] Trung Hoyos MD [facility] [place] [address] documented as of this encounter Procedures Procedure [...] 1:49 PM EDT) Neutrophil % 70.8 % [facility] Neutrophil Absolute 5.02 1.70 - 6.10 x10(3)/[facility]AT[facility] Lymph % 18.5 % [facility] Lymphocytes Abs 1.3 0.9 - 3.2 x10(3)/[facility] Monocyte % 6.9 % [facility] Monocyte Abs 0.5 0.3 - 0.9 x10(3)/[facility] Eos % 2.8 % [facility] Eosinophils Abs 0.2 0.0 - 0.4 x10(3)/[facility] Basophil % 0.6 % [facility] Baso Absolute 0.0 0.0 - 0.1 x10(3)/[facility] Immature Gran % 0.40 % [facility] Comment: Immature granulocytes(IG's)percentage and absolute count will include metamyelocytes, myelocytes, and promyelocytes. Blood smears from CBCs yielding IG's will be scanned manually for concordance. If this scan disagrees with the automated IG or if promyelocytes are noted, a manual differential will be performed. Immature Gran Absolute 0.03 0.00 - 0.04 x10(3)/[facility] Blood 05/31/2021 1:49 PM EDT 05/31/2021 1:52 PM EDT Narrative Resulting Agency Comment Spec In Lab Marcelle Weinberg STONE SANDBLASTER HEMATOLOGY ORDERA BLES Performing Organization Address City/State/[facility] Co de Phone Number [facility] [place] [address] * (ABNORMAL) Hemogram (05/31/2021 1:49 PM EDT) White Blood Cell 7.1 4.0 - 9.5 x10(3)/[facility] Red Blood Cell 3.85(L) 4.58 - 5.54 x10(6)/ L [facility] Hemoglobin 12.6(L) 13.7 - 16.5 gm/dL [facility] Hematocrit 38.4(L) 40.5 - 48.5 % [facility] Mean Cell Volume 99.7(H) 82.9 - 93.1 fL [facility] Mean Cell Hemoglobin 32.7(H) 27.5 - 32.1 pg [facility] Mean Cell Hemoglobin Concentration 32.8 32.0 - 35.7 gm/dL [facility] Platelet 215 145 - 357 x10(3)/mc L [facility] RDW Standard Deviation 45.1(H) 36.0 - 45.0 fL [facility] RDW coefficient of variation 12.3 11.4 - 13.8 % [facility] Mean Platelet Volume 11.2 7.6 - 12.9 fL [facility] NRBC% auto 0.0 % [facility] NRBC Absolute 0.000 0.000 - 0.000 x10(3)/mc L [facility] Blood 05/31/2021 1:49 PM EDT 05/31/2021 1:52 PM EDT Narrative Resulting Agency Comment Spec In Lab Marcelle Weinberg STONE SANDBLASTER HEMATOLOGY ORDERA BLES Performing Organization Address [facility] Co de Phone Number [facility] [place] [address] * Ferritin (05/31/2021 1:49 PM EDT) [facility] Ferritin 94 30 - 400 ng/mL [facility] Comment: Pediatric reference ranges not verified at [facility], interpret with caution. Reference ranges for females greater than 50 years of age approach values for men, i.e., 30-400 ng/mL. Blood 05/31/2021 1:49 PM EDT 05/31/2021 1:52 PM EDT Narrative Resulting Agency Comment Spec In Lab Marcelle Weinberg STONE SANDBLASTER CHEMISTRY ORDERAB LES Performing Organization Address City/[facility]/ZIP Co de Phone Number [facility] [place] [address] * Iron and TIBC (05/31/2021 1:49 PM EDT) Iron 86 45 - 160 mcg/dL [facility] TIBC 286 250 - 450 mcg/dL [facility] Iron Saturation 30 20 - 50 % [facility] Blood 05/31/2021 1:49 PM EDT 05/31/2021 1:52 PM EDT Narrative Resulting Agency Comment Spec In Lab Marcelle Weinberg STONE SANDBLASTER CHEMISTRY ORDERAB LES Performing Organization Address City/[facility]/ZIP Co de Phone Number [facility] [place] [address] * Vitamin B12 (05/31/2021 1:49 PM EDT) Vitamin B12 389 232 - 1,245 pg/mL [facility] Blood 05/31/2021 1:49 PM EDT 05/31/2021 1:52 PM EDT Narrative Resulting Agency Comment Spec In Lab Marcelle Weinberg STONE SANDBLASTER CHEMISTRY ORDERAB LES Performing Organization Address City/[facility]/ZIP Co de Phone Number [facility] [place] [address] documented in this encounter Visit Diagnoses Diagnosis Left sided colitis without complications Left sided ulcerative (chronic) colitis documented in this encounter Care Teams Crawler Crane Operator Relationship Specialty Start Date End Date Josue Wilkinson MD PCP - General General Internal Medicine 02/14/21 9/3 documented as of this encounter
--- OUTSIDE RECORDS SUMMARY | 2024-06-29 23:33 | XMS_ITS | Encounter Summary ---
[place] [address] Care Team Providers Care Global Regulatory Affairs Manager Name Role Phone Deacon Watters APRN Primary Care Provider [phone]- [phone] Reason for Referral * Consultation (Routine) - Closed Specialty Diagnoses / Procedures Referred By Contac t Referred To Contact [facility] Sp[facility] Center Diagnoses Cervicalgia Other chronic pain chronic neck pain/MRI 10/27/23 @ [facility] Deacon Watters APRN [address] [place] [address] [facility] [place] [address] Referral ID Status Reason Start Date Expiration Date V isits Requested Visits Authorized [id number] Closed Consult, Test & Treat PCP Updated and/or Approved 11/11/2023 05/10/2024 1 1 Encounter Details Date Type Department Care Team (Late st Contact Info) Description 11/18/2023 Transcribe Orders eDH Incoming Referrals [phone] Deacon Watters APRN [address] [place], [place] [address] Cervicalgia; Other chronic pain Social History Tobacco [...] Vascular Unit Level 3 Wing B at [place] [phone] Bishop Godinez MD [facility] [place] [address] 08/15/2024 9:00 AM EDT Office Visit Gastroenterology at [place] [phone] Dion Barlow MD [facility] [place] [address] 09/01/2024 11:20 AM EDT Office Visit Dermatology at [address] [address] Gómez Mercer MD [facility] DR EDD[place] [address] 09/21/2024 2:45 PM EDT Office Visit [facility] and Spine Center at [place] [phone] Trung Hoyos MD [facility] [address] Scheduled Referrals Name Type Priority Associated Diagnoses Orde r Schedule Referral to Spine Center Outpatient Referral Routine Cervicalgia Other chronic pain Ordered: 11/18/2023 documented as of this encounter Visit Diagnoses Diagnosis Cervicalgia Other chronic pain documented in this encounter Care Teams Global Regulatory Affairs Manager Relationship Specialty Start Date End Date Deacon Watters, FIT MODEL [address] [place] [address] PCP - General Family Medicine 02/17/22 documented as of this encounter
--- OUTSIDE RECORDS SUMMARY | 2024-06-29 23:33 | XMS_ITS | Encounter Summary ---
Author Organization [facility] [place] [address] Care Team Providers Care Strap Machine Operator Name Role Phone Josue Wilkinson MD Primary Care Provider [phone] Encounter Details Date Type Department Care Team (Late st Contact Info) Description 04/16/2021 Tele[place] [address] Mona Cherry Social History Tobacco Use Types [...] Unit Level 3 [place] [address] Bishop Godinez MD [facility] [place] [address] 08/15/2024 9:00 AM EDT Office [place] [address] Dion Barlow MD [facility] GASTROENTEROLOGY [place] [id number] 09/01/2024 11:20 AM EDT Office Visit Dermatology at [facility] [address] [place] [address] Gómez Mercer MD [facility] [address] [place] [address] 09/21/2024 2:45 PM EDT Office Visit Pain and Spine Center at [facility] [place] [address] Trung Hoyos MD [facility] [place] [address] documented as of this encounter Visit Diagnoses Not on filedocumented in this encounter Care Teams Strap Machine Operator Relationship Specialty Start Date End Date Josue Wilkinson MD PCP - General General Internal Medicine 02/14/21 9/3 documented as of this encounter
--- OUTSIDE RECORDS SUMMARY | 2024-06-29 23:33 | XMS_ITS | Encounter Summary ---
Author Organization [facility] [place] [address] Care Team Providers Care Precision Grinder Name Role Phone Deacon Watters APRN Primary Care Provider [phone]- [phone] Encounter Details Date Type Department Care Team (Late st Contact Info) Description 11/20/2022 Telephone [place] [address] Jarret Roa RN Social History Tobacco Use [...] Vascular Unit Level 3 Wing B at [place] [phone] Bishop Godinez MD [facility] [place] [address] 08/15/2024 9:00 AM EDT Office Visit Gastroenterology at [place] [phone] Dion Barlow MD [facility] [place] [address] 09/01/2024 11:20 AM EDT Office Visit Dermatology at [place] [address] [place] [address] Gómez Mercer MD [facility] DR EDDIE [place] [address] 09/21/2024 2:45 PM EDT Office Visit Pain and Spine Center at [place] [phone] Trung Hoyos MD [facility] [place] [address] documented as of this encounter Visit Diagnoses Not on filedocumented in this encounter Care Teams Precision Grinder Relationship Specialty Start Date End Date Deacon Watters APRN [address] [place] [address] PCP - General Family Medicine 02/17/22 documented as of this encounter
--- OUTSIDE RECORDS SUMMARY | 2024-06-29 23:33 | XMS_ITS | Encounter Summary ---
Author Organization [facility] Address [facility] [place] [address] Care Team Providers Care Registered Veterinary Technician Name Role Phone Deacon Watters APRN Primary Care Provider +1- [phone] Encounter Details Date Type Department Care Team (Late st Contact Info) Description 02/17/2022 9:30 AM EDT Office [place] [phone] Marcelle Weinberg APRN [facility] [place] [address] Other ulcerative colitis with rectal bleeding Social [...] sigmoid nl ?? Repeat exam 11/27/11 [place] mildly active colitis in the sigmoid colon [...] Final Recent endoscopic procedures 06/28/21 EGD ( [facility]): Pre op Dx; Dysphagia Post op DX: [...] Disease Center Section of Gastroenterology [place] [address] documented in this encounter Plan of Treatment Upcoming Encounters Date Type Department Care Team (Late st Contact Info) Description 07/01/2024 Hospital Encounter Heart and Vascular Unit Level 3 [place] [address] [facility] [place] [address] 08/15/2024 9:00 AM EDT Office [place] [address] [facility] [place] [address] 09/01/2024 11:20 AM EDT Office Visit Dermatology at [facility] [address] [place] [address] [facility] [address] [place] [address] 09/21/2024 2:45 PM EDT Office Visit Pain and Spine Center at [facility] [place] [address] [facility] [address] Scheduled Orders Name Type Priority Associated Diagnoses [...] AM EDT) Calprotectin, Stool 55 <=79 mcg/g [facility] Comment: Calprotectin Concentration ? Interpretation ? < 80 mcg/g ?Normal ? 80 ? 160 mcg/g ?Borderline ? >160 mcg/g ?Elevated Stool 02/19/2022 8:00 AM EDT 02/19/2022 11:25 AM EDT Narrative Resulting Agency Comment Spec In Lab Marcelle Weinberg STUDENT SERVICES REP BODY FLUIDS AND S TOOLS ORDERABLES Performing Organization Address City/State/[facility] Co de Phone Number [facility] [place] [address] * (ABNORMAL) Differential, Automated (02/17/2022 10:40 AM EDT) Neutrophil % 65.7 % [facility] Neutrophil Absolute 4.53 1.70 - 6.10 x10(3)/mc L [facility] Lymph % 22.8 % [facility] Lymphocytes Abs 1.6 0.9 - 3.2 x10(3)/mc L [facility] Monocyte % 7.3 % [facility] Monocyte Abs 0.5 0.3 - 0.9 x10(3)/mc L [facility] Eos % 2.6 % [facility] Eosinophils Abs 0.2 0.0 - 0.4 x10(3)/mc L [facility] Basophil % 0.6 % [facility] Baso Absolute 0.0 0.0 - 0.1 x10(3)/mc L [facility] Immature Gran % 1.00 % [facility] Comment: Immature granulocytes(IG's)percentage and absolute count will include metamyelocytes, myelocytes, and promyelocytes. Blood smears from CBCs yielding IG's will be scanned manually for concordance. If this scan disagrees with the automated IG or if promyelocytes are noted, a manual differential will be performed. Immature Gran Absolute 0.07(H) 0.00 - 0.04 x10(3)/mc L [facility] Blood 02/17/2022 10:4 0 AM EDT 02/17/2022 10:50 AM EDT Narrative Resulting Agency Comment Spec In Lab Marcelle Weinberg STUDENT SERVICES REP HEMATOLOGY ORDERA BLES [facility] [place] [address] * (ABNORMAL) Hemogram (02/17/2022 10:40 AM EDT) White Blood Cell 6.9 4.0 - 9.5 x10(3)/mc L [facility] Red Blood Cell 3.58(L) 4.58 - 5.54 x10(6)/mc L [facility] Hemoglobin 11.5(L) 13.7 - 16.5 g/dL [facility] Hematocrit 35.1(L) 40.5 - 48.5 % [facility] Mean Cell Volume 98.0(H) 82.9 - 93.1 fL [facility] Mean Cell Hemoglobin 32.1 27.5 - 32.1 pg [facility] Mean Cell Hemoglobin Concentration 32.8 32.0 - 35.7 g/dL [facility] Platelet 220 145 - 357 x10(3)/mc L [facility] RDW Standard Deviation 44.3 36.0 - 45.0 [facility] RDW coefficient of variation 12.3 11.4 - 13.8 % [facility] Mean Platelet Volume 10.5 7.6 - 12.9 fL [facility] NRBC% auto 0.0 % [facility] NRBC Absolute 0.000 0.000 - 0.000 x10(3)/mc L [facility] Blood 02/17/2022 10:4 0 AM EDT 02/17/2022 10:50 AM EDT Narrative Resulting Agency Comment Spec In Lab Marcelle Weinberg STUDENT SERVICES REP HEMATOLOGY ORDERA BLES Performing Organization Address [facility] Co de Phone Number [facility] [place] [address] * (ABNORMAL) CRP, acute inflammation (02/17/2022 10:40 AM EDT) C-Reactive Protein 5.0(H) <=4.9 mg/L [facility] Blood 02/17/2022 10:4 0 AM EDT 02/17/2022 10:50 AM EDT Narrative Resulting Agency Comment Spec In Lab Marcelle Dunnjeovannyjania STUDENT SERVICES REP CHEMISTRY ORDERAB LES Performing Organization Address [facility] de Phone Number [facility] [place] [address] * (ABNORMAL) Sedimentation rate (02/17/2022 10:40 AM EDT) Sedimentation Rate Automated 64(H) 3 - 46 mm/hr [facility] Comment: Effective November 02, 2019 new capillary photometric technology has resulted in a change in reference ranges. It is recommended that each ESR result be reviewed with its own age appropriate reference range. Blood 02/17/2022 10:4 0 AM EDT 02/17/2022 10:50 AM EDT Narrative Resulting Agency Comment Spec In Lab Marcelle Weinberg STUDENT SERVICES REP HEMATOLOGY ORDERA BLES Performing Organization Address [facility] Co de Phone Number [facility] [place] [address] * Comprehensive metabolic panel (non-fasting) (02/17/2022 10:40 AM EDT) Glucose 94 65 - 199 mg/dL [facility] Comment:Diabetes: >=200 mg/d L plus symptoms Blood Urea Nitrogen 14 10 - 20 mg/dL [facility] Creatinine 1.06 0.80 - 1.50 mg/dL [facility] Sodium 144 135 - 145 mmol/L [facility] Potassium 3.9 3.5 - 5.0 mmol/L [facility] Comment: Please note: ??Patients with WBC >100,000 may have falsely elevated Potassium levels. ??For accurate Potassium quantification in these patients send serum separator tube ([facility] top) for subsequent determinations. ??Contact the Clinical Chemistry Laboratory if there are any questions. Chloride 107 98 - 107 mmol/L [facility] Carbon Dioxide 26 22 - 31 mmol/L [facility] Anion Gap 11 5 - 15 mmol/L [facility] Calcium 9.7 8.5 - 10.5 mg/dL [facility] Protein, Total 8.0 6.1 - 8.0 g/dL [facility] Albumin 4.3 3.2 - 5.2 g/dL [facility] Aspartate Aminotransferase 10 0 - 39 unit/L [facility] Alanine Aminotransferase 17 0 - 55 unit/L [facility] Alkaline Phosphatase 78 40 - 130 unit/L [facility] Bilirubin, Total 0.4 0.2 - 1.3 mg/dL [facility] Est Glomerular Filtration Rate 69 >=60 mL/min/1. 73 m?? [facility] Comment: This patient? s [...] Agency Comment Spec In Lab MonalisaDg Weinberg STUDENT SERVICES REP CHEMISTRY ORDERAB LES Performing Organization Address City/State/[facility] Co de Phone Number [facility] [place] [address] documented in this encounter Visit Diagnoses Diagnosis Other ulcerative colitis with rectal bleeding documented in this encounter Care Teams Registered Veterinary Technician Relationship Specialty Start Date End Date Deacon Watters APRN [address] [place] [address] PCP - General Family Medicine 02/17/22 documented as of this encounter
--- OUTSIDE RECORDS SUMMARY | 2024-06-29 23:33 | XMS_ITS | Encounter Summary ---
Author Organization [facility] [place] [address] Care Team Providers Care Race Car Mechanic Name Role Phone Josue Wilkinson MD Primary Care Provider [phone] Encounter Details Date Type Department Care Team (Late st Contact Info) Description 04/30/2021 [place] [address] Marcelle Weinberg APRN [facility] [place] [address] Social History Tobacco Use Types Packs/Day Years [...] Vascular Unit Level 3 [place] [address] Bishop Godinez MD [facility] [place] [address] 08/15/2024 9:00 AM EDT Office Visit Gastroenterology at [place] [phone] Dion Barlow MD [facility] [place] [address] 09/01/2024 11:20 AM EDT Office Visit Dermatology at [address] [phone] Gómez Mercer MD [facility] DR EDDIE [place] [address] 09/21/2024 2:45 PM EDT Office Visit [place] [address] Trung Hoyos MD [facility] [place] [address] documented as of this encounter Results * Vitamin B12 (05/31/2021 1:49 PM EDT) Vitamin B12 389 232 - 1,245 pg/mL [facility] Blood 05/31/2021 1:49 PM EDT 05/31/2021 1:52 PM EDT Narrative Resulting Agency Comment Spec In Lab Marcelle Weinberg INFORMATICS SCIENTIST CHEMISTRY ORDERAB LES [facility] [place] [address] * Iron and TIBC (05/31/2021 1:49 PM EDT) Iron 86 45 - 160 mcg/dL [facility] TIBC 286 250 - 450 mcg/dL [facility] Iron Saturation 30 20 - 50 % [facility] Blood 05/31/2021 1:49 PM EDT 05/31/2021 1:52 PM EDT Narrative Resulting Agency Comment Spec In Lab Marcelle Dunnjeovannyjania INFORMATICS SCIENTIST CHEMISTRY ORDERAB LES Performing Organization Address City/[facility]/ZIP Co de Phone Number [facility] [address] * Ferritin (05/31/2021 1:49 PM EDT) Ferritin 94 30 - 400 ng/mL [facility] Comment: Pediatric reference ranges not verified at [facility], interpret with caution. Reference ranges for females greater than 50 years of age approach values for men, i.e., 30-400 ng/mL. Blood 05/31/2021 1:49 PM EDT 05/31/2021 1:52 PM EDT Narrative Resulting Agency Comment Spec In Lab Marcelle Dunnjeovannyjania INFORMATICS SCIENTIST CHEMISTRY ORDERAB LES Performing Organization Address City/[facility]/ZIP Co de Phone Number [facility] [place] [address] documented in this encounter Visit Diagnoses Diagnosis Left sided colitis without complications Left sided ulcerative (chronic) colitis documented in this encounter Care Teams Race Car Mechanic Relationship Specialty Start Date End Date Josue Wilkinson MD PCP - General General Internal Medicine 02/14/2107/26 documented as of this encounter
--- OUTSIDE RECORDS SUMMARY | 2024-06-29 23:33 | XMS_ITS | Encounter Summary ---
Author Organization [facility] [place] [address] Care Team Providers Care Nursing Services Manager Name Role Phone Deacon Watters APRN Primary Care Provider [phone]- [phone] Encounter Details Date Type Department Care Team (Late st Contact Info) Description 10/27/2023 Ancillary Procedure [place] [address] Deacon Watters APRN [address] [place] [address] Social History Tobacco Use Types Packs/Day Years [...] Vascular Unit Level 3 [place] [address] Bishop Godinez MD [facility] [place] [address] 08/15/2024 9:00 AM EDT Office Visit [place] [address] Dion Barlow MD [facility] [place] [address] 09/01/2024 11:20 AM EDT Office Visit Dermatology at [facility] [address] [place] [address] Gómez Mercer MD [facility] DR EDDIE [place] [address] 09/21/2024 2:45 PM EDT Office Visit [facility] [place] [phone] Trung Hoyos MD [facility] [place] [address] documented as of this encounter Procedures Procedure Name Priority Date/Time Associated Diagnosis Comments FILM LIBRARY STORAGE ONLY MR SPINE Routine 10/27/2023 12:00 AM EST documented in this encounter Results * Film Library- Storage Only MR Spine (10/27/2023 12:00 AM EST) Narrative [facility] - 11/11/2023 10:39 AM EST This exam is auto-finalizing. It's purpose is for storage only. Deacon Watters APRN IMG FILM LIBRARY O RDERABLES [place], [place] documented in this encounter Visit Diagnoses Not on filedocumented in this encounter Care Teams Nursing Services Manager Relationship Specialty Start Date End Date Deacon Watters APRN [address] [place] [address] PCP - General Family Medicine 02/17/22 documented as of this encounter
--- OUTSIDE RECORDS SUMMARY | 2024-06-29 23:33 | XMS_ITS | Encounter Summary ---
Author Organization [facility] [place] [address] Care Team Providers Care Fish Checker Name Role Phone Deacon Watters APRN Primary Care Provider [phone]- [phone] Encounter Details Date Type Department Care Team (Late st Contact Info) Description 02/26/2022 Telephone [place] [phone] Dianna Shen RN Social History Tobacco Use [...] Brian reminding him to get labs. Called [facility] and they had not been done yet. * Telephone Encounter - Dianna Shen RN - 02/26/2022 4:06 PM EDT TC placed to follow up with Brian. Reports improvement in diarrhea. Says he has a scheduled colonoscopy 5/6th. Discussed elevation in labs of CRP and ESR, as well as mild anemia per Farideh. Patient plans to have labs rechecked at [facility] on Thursday. documented in this encounter Plan of Treatment Upcoming Encounters Date Type Department Care Team (Late st Contact Info) Description 07/01/2024 Hospital Encounter Heart and Vascular Unit Level 3 Wing B at [place] [phone] [facility] [place] [address] 08/15/2024 9:00 AM EDT Office Visit Gastroenterology at [place] [phone] [facility] [place] [address] 09/01/2024 11:20 AM EDT Office Visit Dermatology at [address] [address] [address] [facility] DR [place] [address] 09/21/2024 2:45 PM EDT Office Visit Pain and Spine Center at [place] [phone] [facility] [place] [address] documented as of this encounter Visit Diagnoses Not on filedocumented in this encounter Care Teams Fish Checker Relationship Specialty Start Date End Date Deacon Watters, SENIOR ACTUARIAL ANALYST [address] [place] [address] PCP - General Family Medicine 02/17/22 documented as of this encounter
--- OUTSIDE RECORDS SUMMARY | 2024-06-29 23:33 | XMS_ITS | Encounter Summary ---
Author Organization [facility] [place] [address] Care Team Providers Care Fuels Sales Representative Name Role Phone Josue Wilkinson MD Primary Care Provider [phone] Encounter Details Date Type Department Care Team (Latest Contact Info) Description 04/29/2021 9:00 AM EDT Office [place] [address] Marcelle Weinberg APRN [facility] [place] [address] Left sided colitis without complications Social History [...] encounter Progress Notes * Marcelle Weinberg C, DESIGN INSERTER - 04/29/2021 9:00 AM EDT Primary care [...] Overview Note: ? Colonoscopy 04/08/10 (Dr. Gomes [facility]) - inflammation only within the rectum and sigmoid; extent of the exam was to the hepatic flexure; biopsies proximal to the sigmoid nl ?? Repeat exam 11/27/11 ([facility] mildly active colitis in the sigmoid colon [...] Ref Range Status ??? COLONOSCOPY 02/26/2021 Final Value:[facility] Endoscopy Procedure Date: 02/26/2021 4:21 PM Patient Name: Brian Rodriguez Date of : 1950 Age: 70 Order #: [id number] Instrument Name: [id number] Procedure: Colonoscopy Indications: High risk colon cancer [...] bowel preparation was evaluated using the BBPS ([place] Bowel Preparation Scale) with scores of: Right [...] Final ??? Surgical Pathology Report 02/26/2021 Final Value:[id number] Location: 4T; EA08; A The signing pathologist [...] MD Verified: 03/04/2021 16:33 Pathologist Performed at: -[facility] Dept. of Pathology, [place], [place] SPECIMEN(S) SUBMITTED A - right colon [...] Disease Center Section of [place]astroenter[place] [address] documented in this encounter Plan of Treatment Upcoming Encounters Date Type Department Care Team (Late st Contact Info) Description 07/01/2024 Hospital Encounter Heart and Vascular Unit Level 3 Wing B at [place] [phone] Bishop Godinez MD [facility] [place] [address] 08/15/2024 9:00 AM EDT Office [place] [address] Dion Barlow MD [facility] [place] [address] 09/01/2024 11:20 AM EDT Office Visit Dermatology at [facility] [address] [place] [address] Gómez Mercer MD [facility] [place] [address] 09/21/2024 2:45 PM EDT Office Visit [place] [address] Trung Hoyos MD [facility] [place] [address] documented as of this encounter Procedures Procedure [...] (ABNORMAL) Differential, Automated (04/29/2021 10:22 AM EDT) [facility] Neutrophil % 65.3 % [facility] Neutrophil Absolute 3.34 1.70 - 6.10 x10(3)/ L [facility] Lymph % 23.0 % [facility] Lymphocytes Abs 1.2 0.9 - 3.2 x10(3)/ L [facility] Monocyte % 6.6 % [facility] Monocyte Abs 0.3 0.3 - 0.9 x10(3)/ L [facility] Eos % 2.9 % [facility] Eosinophils Abs 0.2 0.0 - 0.4 x10(3)/[facility] Basophil % 1.0 % [facility] Baso Absolute 0.0 0.0 - 0.1 x10(3)/[facility] Immature Gran % 1.20 % [facility] Comment: Immature granulocytes(IG's)percentage and absolute count will include metamyelocytes, myelocytes, and promyelocytes. Blood smears from CBCs yielding IG's will be scanned manually for concordance. If this scan disagrees with the automated IG or if promyelocytes are noted, a manual differential will be performed. Immature Gran Absolute 0.06(H) 0.00 - 0.04 x10(3)/ L [facility] Blood 04/29/2021 10:2 2 AM EDT 04/29/2021 10:29 AM EDT Narrative Resulting Agency Comment Spec In Lab Marcelle Weinberg DESIGN INSERTER HEMATOLOGY ORDERA BLES [facility] [place] [address] * (ABNORMAL) Hemogram (04/29/2021 10:22 AM EDT) Pathologist [facility] White Blood Cell 5.1 4.0 - 9.5 x10(3)/ L [facility] Red Blood Cell 3.78(L) 4.58 - 5.54 x10(6)/mc L [facility] Hemoglobin 12.4(L) 13.7 - 16.5 gm/dL [facility] Hematocrit 37.8(L) 40.5 - 48.5 % [facility] Mean Cell Volume 100.0(H) 82.9 - 93.1 fL [facility] Mean Cell Hemoglobin 32.8(H) 27.5 - 32.1 pg [facility] Mean Cell Hemoglobin Concentration 32.8 32.0 - 35.7 gm/dL [facility] Platelet 196 145 - 357 x10(3)/mc L [facility] RDW Standard Deviation 45.1(H) 36.0 - 45.0 [facility] RDW coefficient of variation 12.2 11.4 - 13.8 % [facility] Mean Platelet Volume 11.5 7.6 - 12.9 [facility] NRBC% auto 0.0 % [facility] NRBC Absolute 0.000 0.000 - 0.000 x10(3)/ L [facility] Blood 04/29/2021 10:2 2 AM EDT 04/29/2021 10:29 AM EDT Narrative Resulting Agency Comment Spec In Lab Marcelle Weinberg DESIGN INSERTER HEMATOLOGY ORDERA BLES Performing Organization Address City/[facility] Co de Phone Number [facility] [place] [address] * CRP, acute inflammation (04/29/2021 10:22 AM EDT) C-Reactive Protein <3.0 <=4.9 mg/L [facility] Blood 04/29/2021 10:2 2 AM EDT 04/29/2021 10:29 AM EDT Narrative Resulting Agency Comment Spec In Lab Marcelle Weinberg DESIGN INSERTER CHEMISTRY ORDERAB LES Performing Organization Address City/[facility]/ZIP Co de Phone Number [facility] [place] [address] * Sedimentation rate (04/29/2021 10:22 AM EDT) Sedimentation Rate Automated 32 3 - 46 mm/hr [facility] Comment: Effective November 02, 2019 new capillary photometric technology has resulted in a change in reference ranges. It is recommended that each ESR result be reviewed with its own age appropriate reference range. Blood 04/29/2021 10:2 2 AM EDT 04/29/2021 10:29 AM EDT Narrative Resulting Agency Comment Spec In Lab Marcelle Weinberg DESIGN INSERTER HEMATOLOGY ORDERA BLES Performing Organization Address [facility] Co de Phone Number [facility] [place] [address] * (ABNORMAL) Comprehensive metabolic panel (non-fasting) (04/29/2021 10:22 AM EDT) Pathologist [facility] Glucose 130 65 - 199 mg/dL [facility] Comment:Diabetes: >=200 mg/d L plus symptoms Blood Urea Nitrogen 21(H) 10 - 20 mg/dL [facility] Creatinine 1.14 0.80 - 1.50 mg/dL [facility] Sodium 142 135 - 145 mmol/L [facility] Potassium 4.4 3.5 - 5.0 mmol/L [facility] Comment: Please note: ??Patients with WBC >100,000 may have falsely elevated Potassium levels. ??For accurate Potassium quantification in these patients send serum separator tube (gold top) for subsequent determinations. ??Contact the Clinical Chemistry Laboratory if there are any questions. Chloride 107 98 - 107 mmol/L [facility] Carbon Dioxide 25 22 - 31 mmol/L [facility] Anion Gap 10 5 - 15 mmol/L [facility] Calcium 10.0 8.5 - 10.5 mg/dL [facility] Protein, Total 8.0 6.1 - 8.0 gm/dL [facility] Albumin 4.4 3.2 - 5.2 gm/dL [facility] Aspartate Aminotransferase 14 0 - 39 unit/L [facility] Alanine Aminotransferase 16 0 - 55 unit/L [facility] Alkaline Phosphatase 68 40 - 130 unit/L [facility] Bilirubin, Total 0.3 0.2 - 1.3 mg/dL [facility] Est Glomerular Filtration Rate 64 >=60 mL/min/1. 73 m?? [facility] Comment: This patient? s [...] Agency Comment Spec In Lab Marcelle Weinberg DESIGN INSERTER CHEMISTRY ORDERAB LES [facility] [place] [address] documented in this encounter Visit Diagnoses Diagnosis Left sided colitis without complications Left sided ulcerative (chronic) colitis documented in this encounter Care Teams Fuels Sales Representative Relationship Specialty Start Date End Date Josue Wilkinson MD PCP - General General Internal Medicine 02/14/2107/26 documented as of this encounter
--- OUTSIDE RECORDS SUMMARY | 2024-06-29 23:33 | XMS_ITS | Encounter Summary ---
Author Organization [facility] Address [facility] [place] [address] Care Team Providers Care Quarry Supervisor Open Pit Name Role Phone Deacon Watters APRN Primary Care Provider [phone]- [phone] Encounter Details Date Type Department Care Team [...] Vascular Unit Level 3 [place] [phone] Bishop Godinez MD [facility] [place] [address] 08/15/2024 9:00 AM EDT Office [place] [address] Dion Barlow MD [facility] [place] [address] 09/01/2024 11:20 AM EDT Office Visit Dermatology at [facility] [address] [place] [address] Gómez Mercer MD [facility] DR EDDIE [place] [address] 09/21/2024 2:45 PM EDT Office Visit Pain and Spine Center at [facility] [place] [address] Trung Hoyos MD [facility] [place] [address] documented as of this encounter Visit Diagnoses Not on filedocumented in this encounter Care Teams Quarry Supervisor Open Pit Relationship Specialty Start Date End Date Deacon Watters APRN [address] [place] [address] PCP - General Family Medicine 02/17/22 documented as of this encounter
--- OUTSIDE RECORDS SUMMARY | 2024-06-29 23:33 | XMS_ITS | Encounter Summary ---
Author Organization Count Includes [facility] Address [facility] [place] [address] Care Team Providers Care Knocker Off Name Role Phone Deacon Watters APRN Primary Care Provider +1- [phone] Encounter Details Date Type Department Care Team (Latest Contact Info) Description 02/19/2022 10:52 AM EDT - 02/19/2022 11:59 PM EDT Hospital [place] [phone] Other ulcerative colitis with rectal bleeding Discharge [...] Vascular Unit Level 3 [place] [address] Bishop Godinez MD [facility] [place] [address] 08/15/2024 9:00 AM EDT Office [place] [address] Dion Barlow MD [facility] [place] [address] 09/01/2024 11:20 AM EDT Office Visit Dermatology at [facility] [address] [place] [address] Gómez Mercer MD [facility] [place] [address] 09/21/2024 2:45 PM EDT Office Visit [place] [address] Trung Hoyos MD [facility] [place] [address] documented as of this encounter Procedures Procedure Name Priority Date/Time Associated Diagnosis Comments HC FECAL CALPROTECTIN Routine 02/19/2022 8:00 AM EDT Other ulcerative colitis with rectal bleeding documented in this encounter Results * Calprotectin, Stool (02/19/2022 8:00 AM EDT) Calprotectin, Stool 55 <=79 mcg/g [facility] Comment: Calprotectin Concentration ? Interpretation ? < 80 mcg/g ?Normal ? 80 ? 160 mcg/g ?Borderline ? >160 mcg/g ?Elevated Stool 02/19/2022 8:00 AM EDT 02/19/2022 11:25 AM EDT Narrative Resulting Agency Comment Spec In Lab Marcelle Weinberg APRN BODY FLUIDS AND S TOOLS ORDERABLES [facility] [place] [address] documented in this encounter Visit Diagnoses Diagnosis Other ulcerative colitis with rectal bleeding documented in this encounter Additional Health Concerns Infection Onset Date Last Indicated Resolved Time Rule Out C. difficile 02/19/2022 02/19/20222021 11:33 AM EDT documented as of this encounter Care Teams Knocker Off Relationship Specialty Start Date End Date Deacon Watters APRN [address] [place] [address] PCP - General Family Medicine 02/17/22 documented as of this encounter
--- OUTSIDE RECORDS SUMMARY | 2024-06-29 23:33 | XMS_ITS | Encounter Summary ---
Author Organization [facility] [place] [address] Care Team Providers Care Final Touch Up Painter Name Role Phone Deacon Watters APRN Primary Care Provider [phone]- [phone] Encounter Details Date Type Department Care Team (Late st Contact Info) Description 11/03/2022 Telephone [place] [address] Jarret Roa RN Social History [...] weeks. Labs and stool studies sent to [facility]- He will call when he drops of [...] she says. * Telephone Encounter - Jarret oRa RN - 11/03/2022 2:40 PM EST Per Farideh Weinberg, BODY MAN: Could you please check on him in [...] Vascular Unit Level 3 [place] [address] [facility] [address] 08/15/2024 9:00 AM EDT Office [place] [address] [facility] [place] [address] 09/01/2024 11:20 AM EDT Office Visit Dermatology at [facility] [address] [place] [address] [facility] DR [place] [address] 09/21/2024 2:45 PM EDT Office Visit Pain and Spine Center at [facility] [place] [address] [facility] [place] [address] documented as of this encounter Visit Diagnoses Not on filedocumented in this encounter Care Teams Final Touch Up Painter Relationship Specialty Start Date End Date Deacon Watters APRN [address] [place] [address] PCP - General Family Medicine 02/17/22 documented as of this encounter
--- OUTSIDE RECORDS SUMMARY | 2024-06-29 23:33 | XMS_ITS | Encounter Summary ---
Author Organization [facility] [place] [address] Care Team Providers Care Automatic Mounter Name Role Phone Deacon Watters APRN Primary Care Provider +1- [phone] Reason for Visit * Reason Onset Date Comments Medication Refill 09/21/2023 Encounter Details Date Type Department Care Team (Late st Contact Info) Description 09/21/2023 [place] [phone] Dion Barlow MD [facility] [place] [address] Social History Tobacco Use Types Packs/Day Years [...] Vascular Unit Level 3 [place] [address] Bishop Godinez MD [facility] [place] [place] [address] 08/15/2024 9:00 AM EDT Office [place] [address] Dion Barlow MD [facility] [place] [address] 09/01/2024 11:20 AM EDT Office Visit Dermatology at [facility] [address] [place] [address] Gómez Mercer MD [facility] DR EDDIE [place] [address] 09/21/2024 2:45 PM EDT Office Visit Pain and Spine Center at [place] [phone] Trung Hoyos MD [facility] [place] [address] documented as of this encounter Visit Diagnoses Not on filedocumented in this encounter Care Teams Automatic Mounter Relationship Specialty Start Date End Date Deacon Watters APRN [address] [place] [address] PCP - General Family Medicine 02/17/22 documented as of this encounter
--- OUTSIDE RECORDS SUMMARY | 2024-06-29 23:33 | XMS_ITS | Encounter Summary ---
Author Organization [facility] [place] [address] Care Team Providers Care Automotive Tire Tester Name Role Phone Deacon Watters APRN Primary Care Provider +1- [phone] Encounter Details Date Type Department Care Team (Late st Contact Info) Description 02/26/2022 Telephone [place] [address] Erika Armas Social History Tobacco Use Types [...] - 02/26/2022 1:04 PM EDT Brian Rodriguez [id number] Diagnosis/Indication: UC, restage disease and for surveillance [...] Vascular Unit Level 3 [place] [address] Bishop Godinez MD [facility] [place] [address] 08/15/2024 9:00 AM EDT Office Visit [place] [address] Dion Barlow MD [facility] [place] [place] [address] 09/01/2024 11:20 AM EDT Office Visit Dermatology at [facility] [address] [place] [address] Gómez Mercer MD [facility] DR [place] [address] 09/21/2024 2:45 PM EDT Office Visit Pain and Spine Center at [facility] [place] [phone] Trung Hoyos MD [facility] [place] [address] documented as of this encounter Visit Diagnoses Not on filedocumented in this encounter Care Teams Automotive Tire Tester Relationship Specialty Start Date End Date Deacon Watters, JAZMINE [address] [place] [address] PCP - General Family Medicine 02/17/22 documented as of this encounter
--- OUTSIDE RECORDS SUMMARY | 2024-06-29 23:33 | XMS_ITS | Encounter Summary ---
Author Organization [facility] [place] [address] Care Team Providers Care Field Secretary Name Role Phone Deacon Watters APRN Primary Care Provider +1- [phone] Reason for Visit * Reason Onset Date Comments Medication Refill 08/22/2022 Encounter Details Date Type Department Care Team (Late st Contact Info) Description 08/22/2022 Refill [place] [phone] Dion Barlow MD [facility] [place] [address] Social History Tobacco Use Types Packs/Day Years [...] Vascular Unit Level 3 [place] [address] Bishop Godinez MD [facility] [place] [address] 08/15/2024 9:00 AM EDT Office [place] [address] Dion Barlow MD [facility] [place] [address] 09/01/2024 11:20 AM EDT Office Visit Dermatology at [facility] [address] [place] [address] Gómez Mercer MD [facility] DR EDDIE SANCHE[place] [address] 09/21/2024 2:45 PM EDT Office Visit Pain and Spine Center at [place] [phone] Trung Hoyso MD [facility] [place] [address] documented as of this encounter Visit Diagnoses Not on filedocumented in this encounter Care Teams Field Secretary Relationship Specialty Start Date End Date Deacon Watters APRN [address] [place] [address] PCP - General Family Medicine 02/17/22 documented as of this encounter
--- OUTSIDE RECORDS SUMMARY | 2024-06-29 23:33 | XMS_ITS | Encounter Summary ---
Author Organization [facility] Address [facility] [place] [address] Care Team Providers Care Calculating Machine Operator Name Role Phone Deacon Watters APRN Primary Care Provider [phone] Encounter Details Date Type Department Care Team (Latest Contact Info) Description 03/28/2022 2:03 PM EDT - 03/28/2022 5:24 PM EDT Hospital Encounter [place] [address] Mona Turner MD [facility] [place] [address] Discharge Disposition: Home Social History Tobacco Use [...] occurs, please contact your Doctor. Please call [phone] before 8pm Mon-Fri with problems, questions or concerns. If you call after 8pm or on weekends, call the Hospital at [phone] and ask to speak to the Paste Mixer flight operation coordinator and the typing element machine operator will contact that person for you. When should you call for help? Call [phone] anytime you think you may need emergency [...] any problems. Where can you learn more? [facility] View your After Visit Summary and more online at [email or web address] If you would like to provide feedback [...] cost to you. Content Version: 12.2 ?? [id number] [employer]inda. Care instructions adapted under license by [facility]. If you have questions about a medical condition or this instruction, always ask your healthcare professional. [employer] disclaims any warranty or liability for your [...] Vascular Unit Level 3 Wing B at [place] [phone] Bishop Godinez MD [facility] [place] [address] 08/15/2024 9:00 AM EDT Office Visit Gastroenterology at [place] [phone] Dion Barlow MD [facility] [place] [address] 09/01/2024 11:20 AM EDT Office Visit Dermatology at [address] [phone] Gómez Mercer MD [facility] DR EDDIE [place] [address] 09/21/2024 2:45 PM EDT Office Visit Pain and Spine Center at [place] [phone] Trung Hoyos MD [facility] [place] [address] documented as of this encounter Procedures Procedure Name Priority Date/Time Associated Diagnosis Comments SURGICAL PATHOLOGY REPORT Routine 03/28/2022 4:22 PM EDT SPECIMEN TO PATHOLOGY Routine 03/28/2022 4:22 PM EDT SPECIMEN TO PATHOLOGY Routine 03/28/2022 4:22 PM EDT SPECIMEN TO PATHOLOGY Routine 03/28/2022 4:22 PM EDT Colonoscopy, Biopsy ([id number]) 03/28/2022 3:30 PM EDT Other ulcerative colitis with rectal bleeding COLONOSCOPY Routine 03/28/2022 3:15 PM EDT documented in this encounter Results * Surgical Pathology Report (03/28/2022 4:22 PM EDT) Final Diagnosis [id number] ? Location: 4T; EA12; A The signing [...] Christina Verified: ??04/03/2022 15:08 ??Pathologist Performed at: ??[facility] Dept. of Pathology, [place], [place] SPECIMEN(S) SUBMITTED A - Sigmoid bx, [...] x 0.3 cm. Tissue Description: Stephen and tsephen-red strips of mucosal tissue. Sections/Proces sing: Submitted en toto ??in 1 cassette labeled C1. ??shb 04/03/2022 3:[address] [facility] GI Biopsy 03/28/2022 4:22 PM EDT 03/28/2022 4:22 PM EDT GI Biopsy 03/28/2022 4:22 PM EDT 03/28/2022 4:22 PM EDT GI Biopsy 03/28/2022 4:22 PM EDT 03/28/2022 4:22 PM EDT Mona Turner MD PATHOLOGY/CYTOLOGY O CEE Performing Organization Address [facility]/ZIP Co de Phone Number [facility] [place] [address] * Specimen to Pathology (03/28/2022 4:22 PM EDT) AP Specimen 03/28/2022 4:22 PM EDT 03/28/2022 4:[address] [facility] - 03/28/2022 4:22 PM EDT Specimen requisition ordered. ??Separate Pathology report to follow Mona Turner MD PATHOLOGY/CYTOLOGY O CEE Performing Organization Address [facility]/ZIP Co de Phone Number [facility] [place] [address] * Specimen to Pathology (03/28/2022 4:22 PM EDT) AP Specimen 03/28/2022 4:22 PM EDT 03/28/2022 4:[address] [facility] - 03/28/2022 4:22 PM EDT Specimen requisition ordered. ??Separate Pathology report to follow Mona Turner MD PATHOLOGY/CYTOLOGY O CEE Performing Organization Address [facility] [place] [address] * Specimen to Pathology (03/28/2022 4:22 PM EDT) AP Specimen 03/28/2022 4:22 PM EDT 03/28/2022 4:[address] [facility] - 03/28/2022 4:22 PM EDT Specimen requisition ordered. ??Separate Pathology report to follow Mona Turner MD PATHOLOGY/CYTOLOGY O DANIELAtoshoOMAR Performing Organization Address [facility] [place] [address] * COLONOSCOPY (03/28/2022 3:15 PM EDT) COLONOSCOPY [facility] Endoscopy Procedure Date: 03/28/2022 3:15 PM ? Patient Name: Brian Rodriguez ? [facility]: [id number] ? Date of : 1950 ? Age: 71 ? Order #: [id number] ? Instrument Name: [id number] ? Procedure: ? Colonoscopy Indications: ? Follow-up of ulcerative colitis Providers: ? Mona Turner MD, April Augustine ? Cristela, RONY, Shay Marques Referring : ?Davina Barlow MD, Deacon Dior ? [place] Medicines: ? Midazolam 4 mg IV, Fentanyl [...] ? was evaluated using the BBPS ? ([place] Bowel Preparation Scale) ? with scores of: [...] Procedure Code(s): ? --- Professional --- ? 93517, Colonoscopy, flexible; with ? removal of tumor(s), polyp(s), or ? other lesion(s) by snare technique ? 44326, 59, Colonoscopy, flexible; ? with biopsy, single or multiple CPT copyright 2020 [employer]. All rights reserved. The codes documented in this report are preliminary and upon emu farm worker review may be revised to meet current compliance requirements. Attending Participation: ? I personally performed the entire procedure. ? Mona Turner MD _ Mona Turner MD 03/28/2022 4:33:58 PM This report has been signed electronically. Number of Addenda: 0 Note Initiated On: 03/28/2022 3:15 PM PROVATION 03/28/2022 3:15 PM EDT Deacon Watters HAND DRAWER IN HELPER GENERAL SURGICAL O RDERABLES Performing Organization Address City/State/[facility] Co de Phone Number PROVATION documented in this encounter Visit Diagnoses Not on filedocumented in this encounter Active and Recently Administered Medications Times are shown in EDT. PRN Medication Order 03/26/2022 03/27/2022 03/28/2022 fentaNYL (pf) (50 mcg/mL) multi-dose injection (CANCELED) ONCE PRN, Starting on Thu03/28/22 at 1548, Until Thu03/28/22 at 1924, Intra-Operative (Intra-Procedure), Routine 1548 (Given - Provid er: April Archibald, RONY)1551 (Given - Provider: April Archibald RN) midazolam (pf) (Versed) (1 mg/mL) multi-dose injection (CANCELED) ONCE PRN, Starting on Thu03/28/22 at 1548, Until Thu03/28/22 at 1924, Intra-Operative (Intra-Procedure), Routine 1548 (Given - Provid er: April Archibald, RN)1551 (Given - Provider: April Archibald, RONY)1554 (Given - Provider: April Archibald, RONY)1605 (Given - Provider: April Archibald, RONY) documented in this encounter Care Teams Calculating Machine Operator Relationship Specialty Start Date End Date Deacon Watters APRN [address] [place] [address] [address] [place] [address] PCP - General Family Medicine 02/17/22 documented as of this encounter
--- OUTSIDE RECORDS SUMMARY | 2024-06-29 23:34 | XMS_ITS | Encounter Summary ---
Author Organization [facility] [place] [address] Care Team Providers Care Physicist Astrophysics Name Role Phone Maximilian Fall MD Primary Care Provider [phone] Encounter Details Date Type Department Care Team (Late st Contact Info) Description 01/17/2021 Telephone [place] [phone] César Garcia Social History Tobacco Use Types [...] - 01/17/2021 1:33 PM EST Brian Rodriguez [id number] Diagnosis/Indication: a repeat colonoscopy in two years [...] Vascular Unit Level 3 [place] [phone] Bishop Godinez MD [facility] [place] [address] 08/15/2024 9:00 AM EDT Office Visit [place] [phone] Dion Barlow MD [facility] [place] [address] 09/01/2024 11:20 AM EDT Office Visit Dermatology at [address] [place] [address] Gómez Mercer MD [facility] DR EDDIE [place] [address] 09/21/2024 2:45 PM EDT Office Visit Pain and Spine Center at [facility] [place] [phone] Trung Hoyos MD [facility] [place] [address] documented as of this encounter Visit Diagnoses Not on filedocumented in this encounter Care Teams Physicist Astrophysics Relationship Specialty Start Date End Date Maximilian Fall MD [address] [place] [address] PCP - General 10/01/11 02/13/21 documented as of this encounter
--- OUTSIDE RECORDS SUMMARY | 2024-06-29 23:34 | XMS_ITS | Encounter Summary ---
Author Organization [facility] Address [facility] [place] [address] Care Team Providers Care Brickmason Supervisor Name Role Phone Maximilian Fall MD Primary Care Provider [phone] Encounter Details Date Type Department Care Team (Late st Contact Info) Description 04/28/2019 4:15 PM EDT - 04/28/2019 4:45 PM EDT [place] [address] Iza Coates MD [facility] [place] [address] EGD, UPPER GI ENDOSCOPY (WRVU 2.09) Social [...] Care Everywhere. * EGD (Upper Endoscopy): Post-op (Georgian) documented in this encounter Medications at Time [...] sedation) Iza Coates MD Gastroenterology attending Pager [phone] documented in this encounter Plan of Treatment Upcoming Encounters Date Type Department Care Team (Late st Contact Info) Description 07/01/2024 Hospital Encounter Heart and Vascular Unit Level 3 [place] [phone] Bishop Godinez MD [facility] [place] [address] 08/15/2024 9:00 AM EDT Office [place] [address] Dion Barlow MD [facility] [place] [address] 09/01/2024 11:20 AM EDT Office Visit Dermatology at [facility] [address] [place] [address] Gómez Mercer MD [facility] DR EDDIE [place] [address] 09/21/2024 2:45 PM EDT Office Visit Pain and Spine Center at [facility] [place] [address] Trung Hoyos MD [facility] [place] [address] documented as of this encounter Procedures Procedure [...] PM EDT 04/28/2019 5:03 PM EDT Narrative [facility] - 04/28/2019 5:03 PM EDT Specimen requisition ordered. ??Separate Pathology report to follow Iza Coates MD PATHOLOGY/CYTOLOG Y ORDERABLES [facility] [place] [address] * Specimen to Pathology (04/28/2019 5:03 PM EDT) AP Specimen 04/28/2019 5:03 PM EDT 04/28/2019 5:03 PM EDT Narrative [facility] - 04/28/2019 5:03 PM EDT Specimen requisition ordered. ??Separate Pathology report to follow Iza Coates MD PATHOLOGY/CYTOLOG Y ORDERABLES [facility] [place] [address] * Surgical Pathology Report (04/28/2019 4:50 PM EDT) Final Diagnosis [id number] ? Location: 4T; EA10; A The signing pathologist has (i) examined the relevant preparation(s) for the specimen(s) and (ii) rendered or confirmed the diagnosis(es). . ?Surgical Pathology DIAGNOSIS A - Random duodenum, biopsy: Duodenal mucosa within normal limits, including preserved villous architecture. B - Fundic gland, polypectomy: Gastric fundic gland polyp. Electronically signed by: ??Joana Soler MD Verified: ??05/02/2019 ?Pathologist Performed at: ??-[facility] Dept. of Pathology, [place], [place] CLINICAL INFORMATION Specimen Submitted: A - [...] labeled B1. ??ejr 05/02/2019 4:02 PM EDT [facility] GI Biopsy 04/28/2019 4:50 PM EDT 04/28/2019 4:50 PM EDT GI Biopsy 04/28/2019 4:50 PM EDT 04/28/2019 4:50 PM EDT Iza Coates MD PATHOLOGY/CYTOLOG Y ORDERABLES [facility] [place] [address] * UPPER GI ENDOSCOPY (04/28/2019 4:39 PM EDT) UPPER GI ENDOSCOPY [facility] Endoscopy Procedure Date: 04/28/2019 4:39 PM ? Patient Name: Brian Rodriguez ? N: [id number] ? Date of : 1950 ? Age: 68 ? Order #: [id number] ? Instrument Name: [id number] ? Procedure: ? Upper GI endoscopy Indications: ? Abnormal CT of the GI tract (duodenal ? thickening) Providers: ? Iza Coates MD, Nohemi Ball, ? RN, Jonathan Ko, Gas Engine Operator Referring MD: ?Maximilian Fall MD Requesting Provider: [...] Glucose, POC 91 65 - 199 mg/dL [facility] Comment: Supplemental ranges: <140 mg/dL before meals <180 mg/dL all other times of the day Blood specimen (specimen) 04/28/2019 3:46 PM EDT 04/28/2019 3:46 PM EDT Iza Coates MD POINT OF CARE KISHOR T ORDERABLES Performing Organization Address [facility] Co de Phone Number [facility] [place] [address] documented in this encounter Visit Diagnoses Diagnosis [...] (VERSED) multi-dose injection ONCE PRN, Starting on Rtesa 04/28/19 at 1639, Until Tresa 04/28/19 at [...] RN) documented in this encounter Care Teams Brickmason Supervisor Relationship Specialty Start Date End Date Maximilian Fall MD [address] [place] [address] PCP - General 10/01/11 02/13/21 documented as of this encounter
--- OUTSIDE RECORDS SUMMARY | 2024-06-29 23:34 | XMS_ITS | Encounter Summary ---
Author Organization [facility] [place] [address] Care Team Providers Care Mallet And Die Cutter Name Role Phone Maximilian Fall MD Primary Care Provider [phone] Encounter Details Date Type Department Care Team (Late st Contact Info) Description 11/02/2018 Telephone [place] [address] Marcelle Weinberg, CHEST PAINTING AND SEALING SUPERVISOR [facility] [place] [address] Social History Tobacco Use Types Packs/Day Years [...] Vascular Unit Level 3 [place] [address] [facility] [place] [place] [address] 08/15/2024 9:00 AM EDT Office [place] [address] [facility] [place] [address] 09/01/2024 11:20 AM EDT Office Visit Dermatology at [facility] [address] [place] [address] Gómez Mercer MD [facility] DR EDDIE SANC[place] [address] 09/21/2024 2:45 PM EDT Office Visit [facility] [place] [address] [facility] [place] [address] documented as of this encounter Visit Diagnoses Not on filedocumented in this encounter Care Teams Mallet And Die Cutter Relationship Specialty Start Date End Date Maximilian Fall MD [address] [place] [address] PCP - General 10/01/11 02/13/21 documented as of this encounter
--- OUTSIDE RECORDS SUMMARY | 2024-06-29 23:34 | XMS_ITS | Encounter Summary ---
Author Organization [facility] [place] [address] Care Team Providers Care Bindery Worker Name Role Phone Maximilian Fall MD Primary Care Provider [phone] Encounter Details Date Type Department Care Team (Latest Contact Info) Description 11/02/2018 1:00 PM EST Office [place] [address] Marcelle Weinberg, IRON ASSORTER [facility] [place] [address] Left sided colitis without complications Social History [...] ? Overview Note:? Colonoscopy 04/08/10 (Dr. Gomes [facility]) - inflammation only within the [...] he underwent left inguinal hernia repair at [facility] 2 weeks ago. Once he was discharged [...] 3.66) performed by Dion Osullivan MD at [facility] ENDOSCOPY ??? PRO COLONOSCOPY, DIAGNOSTIC 11/27/2011 COLONOSCOPY, DIAGNOSTIC performed by Dion OSULLIVAN at [facility] ENDOSCOPY ??? PRO COLONOSCOPY, DIAGNOSTIC 07/13/2014 COLONOSCOPY, DIAGNOSTIC performed by Dion Osullivan MD at [facility] ENDOSCOPY ??? PRO SIGMOIDOSCOPY, DIAGNOSTIC 03/16/2012 FLEXIBLE SIGMOIDOSCOPY performed by YUDI MALLOY at [facility] ENDOSCOPY ??? UPPER GI ENDOSCOPY, EXAM 10/01/2012 UPPER GI ENDOSCOPY performed by Dion OSULLIVAN at [facility] Social History Socioeconomic History ??? [...] Vascular Unit Level 3 [place] [address] Bishop Godinez MD [facility] [place] [address] 08/15/2024 9:00 AM EDT Office [place] [address] Dion Osullivan MD [facility] [place] [address] 09/01/2024 11:20 AM EDT Office Visit Dermatology at [address] [phone] Gómez Mercer MD [facility] [address] 09/21/2024 2:45 PM EDT Office Visit [place] [address] Trung Hoyos MD [facility] [place] [address] documented as of this encounter Procedures Procedure [...] * Differential, Automated (11/02/2018 2:35 PM EST) Pathologist [facility] Neutrophil % 61.6 % [facility] Neutrophil Absolute 4.08 1.70 - 6.10 x10(3)/[facility] LABORATORY Lymph % 27.2 % [facility] Lymphocytes Abs 1.8 0.9 - 3.2 x10(3)/[facility] LABORATORY Monocyte % 6.9 % [facility] Monocyte Abs 0.5 0.3 - 0.9 x10(3)/[facility] LABORATORY Eos % 2.9 % [facility] Eosinophils Abs 0.2 0.0 - 0.4 x10(3)/[facility] LABORATORY Basophil % 0.8 % [facility] Baso Absolute 0.0 0.0 - 0.1 x10(3)/[facility] LABORATORY Immature Gran % 0.60 % [facility] Comment: Immature granulocytes(IG's)percentage and absolute count will include metamyelocytes, myelocytes, and promyelocytes. Blood smears from CBCs yielding IG's will be scanned manually for concordance. If this scan disagrees with the automated IG or if promyelocytes are noted, a manual differential will be performed. Immature Gran Absolute 0.04 0.00 - 0.04 x10(3)/[facility] LABORATORY Blood specimen (specimen) 11/02/2018 2:35 PM EST 11/02/2018 2:42 PM EST Narrative Resulting Agency Comment Spec In Lab Marcelle Weinberg APRN HEMATOLOGY ORDERA BLES [facility] [place] [address] * (ABNORMAL) Hemogram (11/02/2018 2:35 PM EST) White Blood Cell 6.6 4.0 - 9.5 x10(3)/ L [facility] Red Blood Cell 4.08(L) 4.58 - 5.54 x10(6)/ L [facility] Hemoglobin 13.1(L) 13.7 - 16.5 gm/dL [facility] Hematocrit 40.0(L) 40.5 - 48.5 % [facility] Mean Cell Volume 98.0(H) 82.9 - 93.1 fL [facility] Mean Cell Hemoglobin 32.1 27.5 - 32.1 pg [facility] Mean Cell Hemoglobin Concentration 32.8 32.0 - 35.7 gm/dL [facility] Platelet 236 145 - 357 x10(3)/[facility] LABORATORY RDW Standard Deviation 44.3 36.0 - 45.0 [facility] LABORATORY RDW coefficient of variation 12.3 11.4 - 13.8 % [facility] Mean Platelet Volume 10.6 7.6 - 12.9 fL [facility] NRBC% auto 0.0 % [facility] NRBC Absolute 0.000 0.000 - 0.000 x10(3)/[facility] LABORATORY Blood specimen (specimen) 11/02/2018 2:35 PM EST 11/02/2018 2:42 PM EST Narrative Resulting Agency Comment Spec In Lab Marcelle Weinberg IRON ASSORTER HEMATOLOGY ORDERA BLES [facility] [place] [address] * (ABNORMAL) CRP, acute inflammation (11/02/2018 2:35 PM EST) C-Reactive Protein 5.0(H) <=4.9 mg/L [facility] Blood specimen (specimen) 11/02/2018 2:35 PM EST 11/02/2018 2:42 PM EST Narrative Resulting Agency Comment Spec In Lab Marcelle Weinberg IRON ASSORTER CHEMISTRY ORDERAB LES Performing Organization Address City/[facility]/ZIP Co de Phone Number [facility] [place] [address] * (ABNORMAL) Sedimentation rate (11/02/2018 2:35 PM EST) Sedimentation Rate Automated 27(H) 0 - 15 mm/hr [facility] Blood specimen (specimen) 11/02/2018 2:35 PM EST 11/02/2018 2:42 PM EST Narrative Resulting Agency Comment Spec In Lab Marcelle Weinberg IRON ASSORTER HEMATOLOGY ORDERA BLES Performing Organization Address City/[facility]/ZIP Co de Phone Number [facility] [place] [address] * (ABNORMAL) Comprehensive metabolic panel (non-fasting) (11/02/2018 2:35 PM EST) Pathologist [facility] Glucose 87 65 - 199 mg/dL [facility] Comment:Diabetes: >=200 mg/d L plus symptoms Blood Urea Nitrogen 15 10 - 20 mg/dL [facility] Creatinine 1.03 0.80 - 1.50 mg/dL [facility] Sodium 140 135 - 145 mmol/L [facility] Potassium 4.3 3.5 - 5.0 mmol/L [facility] Comment: Please note: ??Patients with WBC >100,000 may have falsely elevated Potassium levels. ??For accurate Potassium quantification in these patients send serum separator tube (gold top) for subsequent determinations. ??Contact the Clinical Chemistry Laboratory if there are any questions. Chloride 103 98 - 107 mmol/L [facility] Carbon Dioxide 26 22 - 31 mmol/L [facility] Anion Gap 11 5 - 15 mmol/L [facility] Calcium 9.7 8.5 - 10.5 mg/dL [facility] Protein, Total 8.1(H) 6.1 - 8.0 gm/dL [facility] Albumin 4.0 3.2 - 5.2 gm/dL [facility] Aspartate Aminotransferase 12 0 - 39 unit/L [facility] Alanine Aminotransferase 14 0 - 55 unit/L [facility] Alkaline Phosphatase 73 40 - 120 unit/L [facility] Bilirubin, Total 0.4 0.2 - 1.3 mg/dL [facility] Est Glomerular Filtration Rate 73 >=60 mL/min/1. 73 m?? [facility] Comment: The eGFR was calculated using the CKD-EPI equation. As with all creatinine based estimates of kidney function, eGFR values calculated with the CKD-EPI equation are not accurate in patients with acute kidney failure, extremes of body mass or the acutely ill. [email or web address] eGFR 85 >=60 mL/min/1. 73 m?? [facility] Comment: The eGFR was calculated using the CKD-EPI equation. As with all creatinine based estimates of kidney function, eGFR values calculated with the CKD-EPI equation are not accurate in patients with acute kidney failure, extremes of body mass or the acutely ill. [email or web address] Blood specimen (specimen) 11/02/2018 2:35 PM EST 11/02/2018 2:42 PM EST Narrative Resulting Agency Comment Spec In Lab Marcelle Weinberg IRON ASSORTER CHEMISTRY ORDERAB LES Performing Organization Address City/State/[facility] Co de Phone Number [facility] [place] [address] documented in this encounter Visit Diagnoses Diagnosis Left sided colitis without complications Left sided ulcerative (chronic) colitis documented in this encounter Care Teams Bindery Worker Relationship Specialty Start Date End Date Maximilian Fall MD [address] [place] [address] PCP - General 10/01/11 02/13/21 documented as of this encounter
--- OUTSIDE RECORDS SUMMARY | 2024-06-29 23:34 | XMS_ITS | Encounter Summary ---
Author Organization [facility] [place] [address] Care Team Providers Care Table Machine Operator Name Role Phone Maximilian Fall MD Primary Care Provider [phone] Encounter Details Date Type Department Care Team (Latest Contact Info) Description 04/25/2019 10:00 AM EDT Office [place] [address] Marcelle Weinberg, MULTIPLE NEEDLE STITCHER [facility] [place] [address] Left sided colitis without complications Social History [...] and have it re read here [place] [facility] # Colonoscopy again spring 2020. # Avoid [...] ? Overview Note:? Colonoscopy 04/08/10 (Dr. Gomes [facility]) - inflammation only within the rectum and sigmoid; extent of the exam was to the hepatic flexure; biopsies proximal to the sigmoid nl ?? Repeat exam 11/27/11 ([facility] mildly active colitis in the sigmoid colon [...] 3.66) performed by Dion Osullivan MD at [facility] ENDOSCOPY ??? PRO COLONOSCOPY, DIAGNOSTIC ?? 11/27/2011 ?? COLONOSCOPY, DIAGNOSTIC performed by Dion OSULLIVAN at [facility] ENDOSCOPY ??? PRO COLONOSCOPY, DIAGNOSTIC ?? 07/13/2014 ?? COLONOSCOPY, DIAGNOSTIC performed by Dion Osullivan MD at [facility] ENDOSCOPY ??? PRO SIGMOIDOSCOPY, DIAGNOSTIC ?? 03/16/2012 ?? FLEXIBLE SIGMOIDOSCOPY performed by YUDI MALLOY at [facility] ENDOSCOPY ??? UPPER GI ENDOSCOPY, EXAM ?? 10/01/2012 ?? UPPER GI ENDOSCOPY performed by Dion OSULLIVAN at [facility] ? Social History ?? Socioeconomic History [...] mg/L 5.0 (H) Surgical Pathology Report Unknown [id number] ... COLONOSCOPY Unknown [facility]... COLONOSCOPY COLONOSCOPY Collected: 02/22/19 1804 Resulting lab: PROVATION Value: [facility] Endoscopy Procedure Date: 02/22/2019 3:57 PM ? Patient Name: Brian Rodriguez ? Date of : 1950 ? Age: 68 ? Order #: [id number] ? Instrument Name: [id number] ? Procedure: ? Colonoscopy Indications: ? High [...] ?bowel preparation was evaluated using ?the BBPS ([place] Bowel Preparation ?Scale) with scores of: Right [...] HARVEY, Ana Verified: ??02/26/2019 ?Pathologist Performed at: ??-[facility] Dept. of Pathology, [place], [place] 03/07/19 CT abd/pelvis ( [facility]): Non [...] He had a CT abd/pelvis done at [facility] (03/07/19)when he presented to his PCP with [...] and have it re read here [place] [facility] # Colonoscopy again spring 2020. # Avoid [...] Vascular Unit Level 3 [place] [phone] Bishop Godinez MD [facility] [place] [address] 08/15/2024 9:00 AM EDT Office [place] [address] Dion Osullivan MD [facility] [place] [address] 09/01/2024 11:20 AM EDT Office Visit Dermatology at [facility] [address] [place] [address] Gómez Mercer MD [facility] DR [place] [address] 09/21/2024 2:45 PM EDT Office Visit [place] [address] Trung Hoyos MD [facility] [address] Scheduled Orders Name Type Priority Associated Diagnoses [...] PM EDT) Neutrophil % 66.3 % [facility] Neutrophil Absolute 4.90 1.70 - 6.10 x10(3)/[facility] LABORATORY Lymph % 24.0 % [facility] Lymphocytes Abs 1.8 0.9 - 3.2 x10(3)/[facility] LABORATORY Monocyte % 6.8 % [facility] Monocyte Abs 0.5 0.3 - 0.9 x10(3)/[facility] LABORATORY Eos % 2.0 % [facility] Eosinophils Abs 0.2 0.0 - 0.4 x10(3)/[facility] LABORATORY Basophil % 0.5 % [facility] Baso Absolute 0.0 0.0 - 0.1 x10(3)/[facility] Immature Gran % 0.40 % [facility] Comment: Immature granulocytes(IG's)percentage and absolute count will include metamyelocytes, myelocytes, and promyelocytes. Blood smears from CBCs yielding IG's will be scanned manually for concordance. If this scan disagrees with the automated IG or if promyelocytes are noted, a manual differential will be performed. Immature Gran Absolute 0.03 0.00 - 0.04 x10(3)/[facility] LABORATORY Blood specimen (specimen) 04/25/2019 12:00 PM EDT 04/25/2019 12:03 PM EDT Narrative Resulting Agency Comment Spec In Lab Marcelle Weinberg APRN HEMATOLOGY ORDERA BLES [facility] [place] [address] * (ABNORMAL) Hemogram (04/25/2019 12:00 PM EDT) White Blood Cell 7.4 4.0 - 9.5 x10(3)/mc L [facility] Red Blood Cell 4.22(L) 4.58 - 5.54 x10(6)/ L [facility] Hemoglobin 13.7 13.7 - 16.5 gm/dL [facility] Hematocrit 41.9 40.5 - 48.5 % [facility] Mean Cell Volume 99.3(H) 82.9 - 93.1 fL [facility] Mean Cell Hemoglobin 32.5(H) 27.5 - 32.1 pg [facility] Mean Cell Hemoglobin Concentration 32.7 32.0 - 35.7 gm/dL [facility] Platelet 239 145 - 357 x10(3)/mc L [facility] RDW Standard Deviation 45.9(H) 36.0 - 45.0 fL [facility] RDW coefficient of variation 12.6 11.4 - 13.8 % [facility] Mean Platelet Volume 11.0 7.6 - 12.9 fL [facility] NRBC% auto 0.0 % [facility] NRBC Absolute 0.000 0.000 - 0.000 x10(3)/mc L [facility] Blood specimen (specimen) 04/25/2019 12:00 PM EDT 04/25/2019 12:03 PM EDT Narrative Resulting Agency Comment Spec In Lab Marcelle Weinberg MULTIPLE NEEDLE STITCHER HEMATOLOGY ORDERA BLES Performing Organization Address [facility]/ZIP Co de Phone Number [facility] [place] [address] * CRP, acute inflammation (04/25/2019 12:00 PM EDT) C-Reactive Protein 2.5 <=4.9 mg/L [facility] Blood specimen (specimen) 04/25/2019 12:00 PM EDT 04/25/2019 12:03 PM EDT Narrative Resulting Agency Comment Spec In Lab Marcelle Weinberg MULTIPLE NEEDLE STITCHER CHEMISTRY ORDERAB LES Performing Organization Address City/[facility]/ZIP Co de Phone Number [facility] [place] [address] * (ABNORMAL) Sedimentation rate (04/25/2019 12:00 PM EDT) Sedimentation Rate Automated 28(H) 0 - 15 mm/hr [facility] Blood specimen (specimen) 04/25/2019 12:00 PM EDT 04/25/2019 12:03 PM EDT Narrative Resulting Agency Comment Spec In Lab Marcelle Weinberg MULTIPLE NEEDLE STITCHER HEMATOLOGY ORDERA BLES [facility] [place] [address] * (ABNORMAL) Comprehensive metabolic panel (non-fasting) (04/25/2019 12:00 PM EDT) Glucose 84 65 - 199 mg/dL [facility] Comment:Diabetes: >=200 mg/d L plus symptoms Blood Urea Nitrogen 15 10 - 20 mg/dL [facility] Creatinine 1.14 0.80 - 1.50 mg/dL [facility] Sodium 140 135 - 145 mmol/L [facility] Potassium 4.8 3.5 - 5.0 mmol/L [facility] Comment: Please note: ??Patients with WBC >100,000 may have falsely elevated Potassium levels. ??For accurate Potassium quantification in these patients send serum separator tube (gold top) for subsequent determinations. ??Contact the Clinical Chemistry Laboratory if there are any questions. Chloride 104 98 - 107 mmol/L [facility] Carbon Dioxide 25 22 - 31 mmol/L [facility] Anion Gap 11 5 - 15 mmol/L [facility] Calcium 9.8 8.5 - 10.5 mg/dL [facility] Protein, Total 8.5(H) 6.1 - 8.0 gm/dL [facility] Albumin 4.4 3.2 - 5.2 gm/dL [facility] Aspartate Aminotransferase 12 0 - 39 unit/L [facility] Alanine Aminotransferase 14 0 - 55 unit/L [facility] Alkaline Phosphatase 70 40 - 120 unit/L [facility] Bilirubin, Total 0.4 0.2 - 1.3 mg/dL [facility] Est Glomerular Filtration Rate 65 >=60 mL/min/1. 73 m?? [facility] Comment: The eGFR was calculated using the CKD-EPI equation. As with all creatinine based estimates of kidney function, eGFR values calculated with the CKD-EPI equation are not accurate in patients with acute kidney failure, extremes of body mass or the acutely ill. [email or web address] eGFR 75 >=60 mL/min/1. 73 m?? [facility] Comment: The eGFR was calculated using the CKD-EPI equation. As with all creatinine based estimates of kidney function, eGFR values calculated with the CKD-EPI equation are not accurate in patients with acute kidney failure, extremes of body mass or the acutely ill. [email or web address] Blood specimen (specimen) 04/25/2019 12:00 PM EDT 04/25/2019 12:03 PM EDT Narrative Resulting Agency Comment Spec In Lab Marcelle Weinberg MULTIPLE NEEDLE STITCHER CHEMISTRY ORDERAB LES [facility] [place] [address] documented in this encounter Visit Diagnoses Diagnosis Left sided colitis without complications Left sided ulcerative (chronic) colitis documented in this encounter Care Teams Table Machine Operator Relationship Specialty Start Date End Date Maximilian Fall MD [address] [place] [address] PCP - General 10/01/11 02/13/21 documented as of this encounter
--- OUTSIDE RECORDS SUMMARY | 2024-06-29 23:34 | XMS_ITS | Encounter Summary ---
Author Organization [facility] Address [facility] [place] [address] Care Team Providers Care Chain Maker Loom Control Name Role Phone Maximilian Fall MD Primary Care Provider [phone] Encounter Details Date Type Department Care Team (Latest Contact Info) Description 03/20/2020 10:00 AM EDT TH Visit (TeleHealth) [place] [address] Dion Osullivan MD [facility] [place] [address] Other ulcerative colitis with rectal bleeding Social [...] Note: ?? Colonoscopy 04/08/10 (Dr. Gomes [facility]) - inflammation only within the rectum and [...] recommended by his urology team and [facility]. He reports for a UTI (perhaps chronic [...] past surgical history that includes Colonoscopy, Diagnostic (30363) (11/27/2011); Sigmoidoscopy, Diagnostic (46066) (03/16/2012); Upper Gi Endoscopy, Exam (96813) (10/01/2012); Colonoscopy, Diagnostic (68196) (07/13/2014); Colonoscopy, Biopsy (62275) (N/A, 02/12/2017); Colonoscopy, Biopsy (97965) (N/A, 02/22/2019); Colonoscopy, Remv Lesn, Snare (90778) (N/A, 02/22/2019); and Upper GI Endoscopy, Diagnostic (64630) (N/A, 04/28/2019). Family History: family history is [...] check C. Diff and lactoferrin at [facility]. Also, will call if diarrhea does not [...] with patient on above. Dion OSULLIVAN MD [facility] [place] [address] documented in this encounter Plan of Treatment Upcoming Encounters Date Type Department Care Team (Late st Contact Info) Description 07/01/2024 Hospital Encounter Heart and Vascular Unit Level 3 Wing B at [facility] [place] [address] Bishop Godinez MD [facility] [place] [address] 08/15/2024 9:00 AM EDT Office Visit [place] [address] Dion Osullivan MD [facility] [place] [address] 09/01/2024 11:20 AM EDT Office Visit Dermatology at [facility] [address] [place] [address] Gómez Mercer MD [facility] [place] [address] 09/21/2024 2:45 PM EDT Office Visit [facility] [place] [address] Trung Hoyos MD [facility] [place] [address] documented as of this encounter Visit Diagnoses Diagnosis Other ulcerative colitis with rectal bleeding documented in this encounter Care Teams Chain Maker Loom Control Relationship Specialty Start Date End Date Maximilian Fall MD [address] [place] [address] PCP - General 10/01/11 02/13/21 documented as of this encounter
--- OUTSIDE RECORDS SUMMARY | 2024-06-29 23:34 | XMS_ITS | Encounter Summary ---
Author Organization [facility] [place] [address] Care Team Providers Care Supervisor Agricultural Education Name Role Phone Maximilian Fall MD Primary Care Provider [phone] Encounter Details Date Type Department Care Team (Late st Contact Info) Description 02/11/2019 Telephone [place] [address] Rachel Corral Social History Tobacco Use Types [...] - 02/11/2019 10:16 AM EDT Brian Rodriguez [id number] Diagnosis: Amelia 1. Have you ever had a colonoscopy before? [x] YES [] NO If Yes, Date of Last Amelia:_02/12/17 If yes, did you have any problems with the procedure? [] YES [x] NO Explain: What type of sedation was used: IV 2. Do you take any Blood Thinners? [] YES [x] NO If Yes, type: 3. Do you have a Pacemaker or Defibrillator device? [] YES [x] NO If Yes send inSwan Island Networks message to [facility] ENDO DEVICE CHECK 4. Are you a [...] NO 11. You must have a responsible green party stay at the facility during your [...] Vascular Unit Level 3 [place] [address] Bishop Godinez MD [facility] [place] [address] 08/15/2024 9:00 AM EDT Office Visit Gastroenterology at [place] [phone] Dion Barlow MD [facility] [place] [address] 09/01/2024 11:20 AM EDT Office Visit Dermatology at [address] [phone] Gómez Mercer MD [facility] [place] [address] 09/21/2024 2:45 PM EDT Office Visit [facility] at [place] [phone] Trung Hoyos MD [facility] [place] [address] documented as of this encounter Visit Diagnoses Not on filedocumented in this encounter Care Teams Supervisor Agricultural Education Relationship Specialty Start Date End Date Maximilian Fall MD [address] [place] [address] PCP - General 10/01/11 02/13/21 documented as of this encounter
--- OUTSIDE RECORDS SUMMARY | 2024-06-29 23:34 | XMS_ITS | Encounter Summary ---
Author Organization [facility] [place] [address] Care Team Providers Care Naval Inspector Name Role Phone Maximilian Fall MD Primary Care Provider [phone] Reason for Visit * Reason Comments Follow-up Encounter Details Date Type Department Care Team (Late st Contact Info) Description 05/03/2018 8:30 AM EDT Office [place] [address] Dion Barlow MD [facility] [place] [address] Ulcerative pancolitis with complication Social History Tobacco [...] Note: ? Colonoscopy 04/08/10 (Dr. Gomes [facility]) - inflammation only within the rectum and sigmoid; extent of the exam was to the hepatic flexure; biopsies proximal to the sigmoid nl ?? Repeat exam 11/27/11 ([facility] mildly active colitis in the sigmoid colon [...] visit. 15 min of this 25 min dady-zm-laps visit was spent counseling the patient in the issues outlined above. Davina Barlow MD Maintainer Sewer And Waterworkscomputing consultant Section of Gastroenterology [place] [address] CC: Maximilian Fall MD [address] [place] [address] documented in this encounter Miscellaneous Notes * Addendum Note - Megha Spencer - 05/03/2018 9:35 AM EDTAddended by: MEGHA SPENCER on: 05/03/2018 09:35 AM Modules accepted: Orders documented in this encounter Plan of Treatment Upcoming Encounters Date Type Department Care Team (Late st Contact Info) Description 07/01/2024 Hospital Encounter Heart and Vascular Unit Level 3 [place] [address] Bishop Godinez MD [facility] [place] [address] 08/15/2024 9:00 AM EDT Office [place] [address] Dion Barlow MD [facility] [place] [address] 09/01/2024 11:20 AM EDT Office Visit [facility] at [facility] [address] [place] [address] Gómez Mercer MD [facility] [place] [address] 09/21/2024 2:45 PM EDT Office Visit [facility] and Sp[facility] Center at [facility] [place] [address] Trung Hoyos MD [facility] [place] [address] documented as of this encounter Procedures Procedure [...] 9:46 AM EDT) Neutrophil % 62.5 % [facility] Neutrophil Absolute 3.86 1.70 - 6.10 x10(3)/[facility] Lymph % 27.2 % [facility] Lymphocytes Abs 1.7 0.9 - 3.2 x10(3)/[facility] Monocyte % 7.1 % [facility] Monocyte Abs 0.4 0.3 - 0.9 x10(3)/[facility] Eos % 2.1 % [facility] Eosinophils Abs 0.1 0.0 - 0.4 x10(3)/[facility] Basophil % 0.6 % [facility] Baso Absolute 0.0 0.0 - 0.1 x10(3)/[facility] Immature Gran % 0.50 % [facility] Comment: Immature granulocytes(IG's)percentage and absolute count will include metamyelocytes, myelocytes, and promyelocytes. Blood smears from CBCs yielding IG's will be scanned manually for concordance. If this scan disagrees with the automated IG or if promyelocytes are noted, a manual differential will be performed. Immature Gran Absolute 0.03 0.00 - 0.04 x10(3)/[facility] Blood specimen (specimen) 05/03/2018 9:46 AM EDT 05/03/2018 10:12 AM EDT Narrative Resulting Agency Comment Spec In Lab L Karthik Barlow MD HEMATOLOGY ORDERABLE S [facility] [place] [address] * (ABNORMAL) Hemogram (05/03/2018 9:46 AM EDT) White Blood Cell 6.2 4.0 - 9.5 x10(3)/ L [facility] Red Blood Cell 4.02(L) 4.58 - 5.54 x10(6)/[facility] LAB[facility]ORY Hemoglobin 13.0(L) 13.7 - 16.5 gm/dL [facility] Hematocrit 39.7(L) 40.5 - 48.5 % [facility] Mean Cell Volume 98.8(H) 82.9 - 93.[address] [facility] Mean Cell Hemoglobin 32.3(H) 27.5 - 32.[address] [facility] Mean Cell Hemoglobin Concentration 32.7 32.0 - 35.7 gm/dL [facility] Platelet 202 145 - 357 x10(3)/mc L [facility] RDW Standard Deviation 45.3(H) 36.0 - 45.[address] [facility] RDW coefficient of variation 12.5 11.4 - 13.8 % [facility] Mean Platelet Volume 11.2 7.6 - 12.[address] [facility] NRBC% auto 0.0 % [facility] NRBC Absolute 0.000 0.000 - 0.000 x10(3)/mc L [facility] Blood specimen (specimen) 05/03/2018 9:46 AM EDT 05/03/2018 10:12 AM EDT Narrative Resulting Agency Comment Spec In Lab L Karthik Barlow MD HEMATOLOGY ORDERABLE S Performing Organization Address City/[facility]/ZIP Co de Phone Number [facility] [place] [address] * CRP, acute inflammation (05/03/2018 9:46 AM EDT) C-Reactive Protein 3.1 <=4.9 mg/L [facility] Blood specimen (specimen) 05/03/2018 9:46 AM EDT 05/03/2018 10:12 AM EDT Narrative Resulting Agency Comment Spec In Lab L Karthik Barlow MD CHEMISTRY ORDERABLES Performing Organization Address City/[facility]/ZIP Co de Phone Number [facility] [place] [address] * Comprehensive metabolic panel (non-fasting) (05/03/2018 9:46 AM EDT) Glucose 110 65 - 199 mg/dL [facility] Comment:Diabetes: >=200 mg/d L plus symptoms Blood Urea Nitrogen 13 10 - 20 mg/dL [facility] Creatinine 0.92 0.80 - 1.50 mg/dL [facility] Sodium 143 135 - 145 mmol/L [facility] Potassium 4.4 3.5 - 5.0 mmol/L [facility] Comment: Please note: ??Patients with WBC >100,000 may have falsely elevated Potassium levels. ??For accurate Potassium quantification in these patients send serum separator tube (gold top) for subsequent determinations. ??Contact the Clinical Chemistry Laboratory if there are any questions. Chloride 105 98 - 107 mmol/L [facility] Carbon Dioxide 27 22 - 31 mmol/L [facility] Anion Gap 11 5 - 15 mmol/L [facility] Calcium 9.9 8.5 - 10.5 mg/dL [facility] Protein, Total 7.7 6.1 - 8.0 gm/dL [facility] Albumin 4.1 3.2 - 5.2 gm/dL [facility] Aspartate Aminotransferase 11 0 - 39 unit/L [facility] Alanine Aminotransferase 13 0 - 55 unit/L [facility] Alkaline Phosphatase 61 40 - 120 unit/L [facility] Bilirubin, Total 0.3 0.2 - 1.3 mg/dL [facility] Est Glomerular Filtration Rate >60 >=60 [facility] Comment: The reported eGFR should be multiplied by 1.2 for patients. The MDRD is not an appropriate measure of renal function for patients with body mass extremes or in patients with acute kidney failure. [email or web address]/DHnkdep [email or web address]://[employer]/DHMCnkf Blood specimen (specimen) 05/03/2018 9:46 AM EDT 05/03/2018 10:12 AM EDT Narrative Resulting Agency Comment Spec In Lab L Karthik Barlow MD CHEMISTRY ORDERABLES [facility] [place] [address] documented in this encounter Visit Diagnoses Diagnosis Ulcerative pancolitis with complication documented in this encounter Care Teams Naval Inspector Relationship Specialty Start Date End Date Maximilian Fall MD [address] [facility] [address] [place] [address] PCP - General 10/01/11 02/13/21 documented as of this encounter
--- OUTSIDE RECORDS SUMMARY | 2024-06-29 23:34 | XMS_ITS | Encounter Summary ---
Author Organization [facility] [place] [address] Care Team Providers Care Textile Technical Officer Name Role Phone Maximilian Fall MD Primary Care Provider [phone] Reason for Visit * Reason Onset Date Comments Medication Refill 03/26/2018 Encounter Details Date Type Department Care Team (Late st Contact Info) Description 03/26/2018 Refill [place] [address] Bethany Marquez RN Social History Tobacco Use Types Packs/Day [...] Miscellaneous Notes * Addendum Note - Bethany Marquez RN - 03/26/2018 4:36 PM EDTAddended by: BETHANY MARQUEZ on: 03/26/2018 04:36 PM Modules accepted: Orders documented in this encounter Plan of Treatment Upcoming Encounters Date Type Department Care Team (Late st Contact Info) Description 07/01/2024 Hospital Encounter Heart and Vascular Unit Level 3 [place] [address] Bishop Godinez MD [facility] [place] [address] 08/15/2024 9:00 AM EDT Office Visit [place] [address] Dion Barlow MD [facility] [place] [address] 09/01/2024 11:20 AM EDT Office Visit Dermatology at [place] [address] [place] [address] Gómez Mercer MD [facility] [place] [address] 09/21/2024 2:45 PM EDT Office Visit Pain [place] [address] Trung Hoyos MD [facility] [place] [address] documented as of this encounter Visit Diagnoses Not on filedocumented in this encounter Care Teams Textile Technical Officer Relationship Specialty Start Date End Date Maximilian Fall MD [address] [place] [address] PCP - General 10/01/11 02/13/21 documented as of this encounter
--- OUTSIDE RECORDS SUMMARY | 2024-06-29 23:34 | XMS_ITS | Encounter Summary ---
Author Organization [facility] [place] [address] Care Team Providers Care Oil Field Worker Name Role Phone Maximilian Fall MD Primary Care Provider [phone] Encounter Details Date Type Department Care Team (Late st Contact Info) Description 04/25/2019 Telephone G[place] [phone] Brandy Durham Social History Tobacco Use Types [...] conditions (especially heart or lung)?:asthma BMI:30.53 Prep:proclear Set Builder?:yes Instructions to patient?:instructions to pt@4L/Exit~jhd documented in this encounter Plan of Treatment Upcoming Encounters Date Type Department Care Team (Late st Contact Info) Description 07/01/2024 Hospital Encounter Heart and Vascular Unit Level 3 Wing B at [place] [phone] Bishop Godinez MD [facility] [place] [place] [address] 08/15/2024 9:00 AM EDT Office Visit Gastroenterology at [place] [phone] Dion Barlow MD [facility] [place] [address] 09/01/2024 11:20 AM EDT Office Visit Dermatology at [address] [phone] Gómez Mercer MD [facility] [place] [place] [address] 09/21/2024 2:45 PM EDT Office Visit Pain and Spine Center at [place] [phone] Trung Hoyos MD [facility] [place] [address] documented as of this encounter Visit Diagnoses Not on filedocumented in this encounter Care Teams Oil Field Worker Relationship Specialty Start Date End Date Maximilian Fall MD [address] [place] [address] PCP - General 10/01/11 02/13/21 documented as of this encounter
--- OUTSIDE RECORDS SUMMARY | 2024-06-29 23:34 | XMS_ITS | Encounter Summary ---
Author Organization [facility] Address [facility] [place] [address] Care Team Providers Care Offshore Diver Name Role Phone Josue Wilkinson MD Primary Care Provider [phone] Encounter Details Date Type Department Care Team (Latest Contact Info) Description 02/26/2021 2:52 PM EDT - 02/26/2021 6:22 PM EDT Hospital Encounter [place] [address] Dion Barlow MD [facility] [place] [address] Discharge Disposition: Home Social History Tobacco Use [...] to be checked. Thursday-Thursday Same Day Endo [phone] Otherwise contact [phone] and ask to speak to the industrial safety and health specialist final application reviewer Follow up care is a le part [...] Vascular Unit Level 3 [place] [address] Bishop Godinez MD [facility] [place] [address] 08/15/2024 9:00 AM EDT Office [place] [phone] Dion Barlow MD [facility] [place] [address] 09/01/2024 11:20 AM EDT Office Visit Dermatology at [place] [address] [place] [address] Gómez Mercer MD [facility] [address] [place] [address] 09/21/2024 2:45 PM EDT Office Visit [place] [phone] Trung Hoyos MD [facility] [place] [address] documented as of this encounter Procedures Procedure Name Priority Date/Time Associated Diagnosis Comments POCT GLUCOSE Routine 02/26/2021 5:51 PM EDT SPECIMEN TO PATHOLOGY Routine 02/26/2021 5:10 PM EDT SPECIMEN TO PATHOLOGY Routine 02/26/2021 5:10 PM EDT SPECIMEN TO PATHOLOGY Routine 02/26/2021 5:10 PM EDT SURGICAL PATHOLOGY REPORT Routine 02/26/2021 4:53 PM EDT Colonoscopy, Sallie Tang ([id number]) 02/26/2021 4:28 PM EDT a repeat colonoscopy in two years from 02/22/19 COLONOSCOPY Routine 02/26/2021 4:21 PM EDT POCT GLUCOSE Routine 02/26/2021 3:42 PM EDT documented in this encounter Results * POCT Glucose (02/26/2021 5:51 PM EDT) Glucose, POC 160 65 - 199 mg/dL [facility] Comment: Supplemental ranges: <140 mg/dL before meals <180 mg/dL all other times of the day Blood specimen (specimen) 02/26/2021 5:51 PM EDT 02/26/2021 12:00 PM EDT L Karthik Barlow MD POINT OF CARE TEST O CEE Performing Organization Address [facility] Co de Phone Number [facility] [place] [address] * Specimen to Pathology (02/26/2021 5:10 PM EDT) AP Specimen 02/26/2021 5:10 PM EDT 02/26/2021 5:10 PM EDT Narrative [facility] - 02/26/2021 5:10 PM EDT Specimen requisition ordered. ??Separate Pathology report to follow L Karthik Barlow MD PATHOLOGY/CYTOLOGY O CEE Performing Organization Address City/[facility]/ZIP Co de Phone Number [facility] [place] [address] * Specimen to Pathology (02/26/2021 5:10 PM EDT) AP Specimen 02/26/2021 5:10 PM EDT 02/26/2021 5:10 PM EDT Narrative [facility] - 02/26/2021 5:10 PM EDT Specimen requisition ordered. ??Separate Pathology report to follow L Karthik Barlow MD PATHOLOGY/CYTOLOGY O CEE Performing Organization Address City/[facility]/ZIP Co de Phone Number [facility] [place] [address] * Specimen to Pathology (02/26/2021 5:10 PM EDT) AP Specimen 02/26/2021 5:10 PM EDT 02/26/2021 5:10 PM EDT Narrative [facility] - 02/26/2021 5:10 PM EDT Specimen requisition ordered. ??Separate Pathology report to follow L Karthik Barlow MD PATHOLOGY/CYTOLOGY O CEE [facility] [place] [address] * Surgical Pathology Report (02/26/2021 4:53 PM EDT) Final Diagnosis [id number] ? Location: 4T; EA08; A The signing [...] MD Verified: ??03/04/2021 16:33 ??Pathologist Performed at: ??-[facility] Dept. of Pathology, [place], [place] SPECIMEN(S) SUBMITTED A - right colon [...] labeled C1. ??shb 03/04/2021 4:33 PM EDT [facility] GI Biopsy 02/26/2021 4:53 PM EDT 02/26/2021 4:53 PM EDT GI Biopsy 02/26/2021 4:53 PM EDT 02/26/2021 4:53 PM EDT GI Biopsy 02/26/2021 4:53 PM EDT 02/26/2021 4:53 PM EDT L Karthik Barlow MD PATHOLOGY/CYTOLOGY O RDERABLES [facility] [address] [place] [address] * COLONOSCOPY (02/26/2021 4:21 PM EDT) COLONOSCOPY [facility] Endoscopy ___ Procedure Date: 02/26/2021 4:21 PM ? Patient Name: Brian Rodriguez ? Date of : 1950 ? Age: 70 ? Order #: [id number] ? Instrument Name: [id number] ? ___ Procedure: ? Colonoscopy Indications: ? High risk colon cancer surveillance: ? Ulcerative colitis Patient Profile: ? This is a 70 year old male. This ? patient has left-sided ulcerative ? colitis, is taking sulfasalazine and ? topical steroid foam, and he is ? experiencing mild symptoms. Providers: ? Davina Barlow MD, Marcelo Maloney ? Robi Lawson MD: ?Josue Alfairis Medicines: ? Midazolam 4 mg IV, Fentanyl [...] preparation was evaluated using ? the BBPS ([place] Bowel Preparation ? Scale) with scores of: [...] Glucose, POC 128 65 - 199 mg/dL [facility] Comment: Supplemental ranges: <140 mg/dL before meals <180 mg/dL all other times of the day Blood specimen (specimen) 02/26/2021 3:42 PM EDT 02/26/2021 12:00 PM EDT Dion Barlow MD POINT OF CARE TEST O RDMELISSA [facility] [place] [address] documented in this encounter Visit Diagnoses Not [...] Marcelo Lawson RN)1634 (Given - Provider: Marcelo Lawson, RONY)1637 (Given - Provider: Marcelo Lawson RN)1642 (Given - Provider: Marcelo Lawson RN) midazolam (pf) (Versed) (1 mg/mL) multi-dose injection (CANCELED) ONCE PRN, Starting on Thu02/26/21 at 1631, Until Thu02/26/21 at 2023, Intra-Operative (Intra-Procedure), Routine 1631 (Given - Provid er: Marcelo Lawson RN)1634 (Given - Provider: Marcelo Lawson, RONY)1637 (Given - Provider: Marcelo Lawson RN)1642 (Given - Provider: Marcelo Lawson RN)1647 (Given - Provider: Marcelo Lawson RN) ondansetron (pf) (Zofran) (2 mg/mL) injection 4 mg (COMPLETED) 4 mg, Intravenous, ONCE PRN, 1 dose, Starting on Thu02/26/21 at 1743, Until Thu02/26/21 at 1722, Nausea, Endoscopy (Recovery-Hospital Unit) 1722 (Given - Provid er: Emilia Love RN) documented in this encounter Care Teams Offshore Diver Relationship Specialty Start Date End Date Josue Wilkinson MD PCP - General General Internal Medicine 02/14/2107/26 documented as of this encounter
--- OUTSIDE RECORDS SUMMARY | 2024-06-29 23:34 | XMS_ITS | Encounter Summary ---
[place] [address] Care Team Providers Care Load Out Supervisor Name Role Phone Maximilian Fall MD Primary Care Provider [phone] Reason for Visit * Reason Onset Date Comments Reminder Appointment 03/20/2020 Encounter Details Date Type Department Care Team (Late st Contact Info) Description 03/20/2020 Telephone [place] [phone] Kinjal Durham CMA GASTROENTEROLOGY DEPT Reminder Appointment [...] Vascular Unit Level 3 [place] [address] Bishop Godinez MD [facility] [place] [address] 08/15/2024 9:00 AM EDT Office Visit [place] [address] Dion Barlow MD [facility] [place] [address] 09/01/2024 11:20 AM EDT Office Visit Dermatology at [place] [address] [place] [address] Gómez Mercer MD [facility] [address] 09/21/2024 2:45 PM EDT Office Visit [facility] [place] [address] Trung Hoyos MD [facility] [place] [address] documented as of this encounter Visit Diagnoses Not on filedocumented in this encounter Care Teams Load Out Supervisor Relationship Specialty Start Date End Date Maximilian Fall MD [address] [place] [address] [address] [place] [address] PCP - General 10/01/11 02/13/21 documented as of this encounter
--- OUTSIDE RECORDS SUMMARY | 2024-06-29 23:34 | XMS_ITS | Encounter Summary ---
Author Organization [facility] [place] [address] Care Team Providers Care Rn Hemodialysis Charge Name Role Phone Maximilian Fall MD Primary Care Provider [phone] Encounter Details Date Type Department Care Team (Late st Contact Info) Description 02/22/2019 Orders [place] [phone] Dion Barlow MD [facility] [place] [address] Social History Tobacco Use Types Packs/Day Years [...] Vascular Unit Level 3 [place] [phone] Bishop Godinez MD [facility] [place] [address] 08/15/2024 9:00 AM EDT Office [place] [phone] Dion Barlow MD [facility] [place] [address] 09/01/2024 11:20 AM EDT Office Visit Dermatology at [facility] [address] [place] [address] Gómez Mercer MD [facility] DR EDDIE [place] [address] 09/21/2024 2:45 PM EDT Office Visit [place] [address] Trung Hoyos MD [facility] [place] [address] documented as of this encounter Visit Diagnoses Not on filedocumented in this encounter Care Teams Rn Hemodialysis Charge Relationship Specialty Start Date End Date Maximilian Fall MD [address] [place] [address] PCP - General 10/01/11 02/13/21 documented as of this encounter
--- OUTSIDE RECORDS SUMMARY | 2024-06-29 23:34 | XMS_ITS | Encounter Summary ---
Author Organization [facility] [place] [address] Care Team Providers Care Executor Of Estate Name Role Phone Maximilian Fall MD Primary Care Provider [phone] Reason for Visit * Reason Onset Date Comments Medication Refill 12/11/2020 Encounter Details Date Type Department Care Team (Late st Contact Info) Description 12/11/2020 Refill [place] [address] Dion Barlow MD [facility] [place] [address] Left sided colitis without complications Social History [...] Vascular Unit Level 3 [place] [address] Bishop Godinez MD [facility] [place] [address] 08/15/2024 9:00 AM EDT Office Visit [place] [address] Dion Barlow MD [facility] [place] [address] 09/01/2024 11:20 AM EDT Office Visit Dermatology at [facility] [address] [place] [address] Gómez Mercer MD [facility] [place] [address] 09/21/2024 2:45 PM EDT Office Visit [facility] [place] [phone] Trung Hoyos MD [facility] [place] [address] documented as of this encounter Visit Diagnoses Diagnosis Left sided colitis without complications Left sided ulcerative (chronic) colitis documented in this encounter Care Teams Executor Of Estate Relationship Specialty Start Date End Date Maximilian Fall MD [address] [place] [address] PCP - General 10/01/11 02/13/21 documented as of this encounter
--- OUTSIDE RECORDS SUMMARY | 2024-06-29 23:34 | XMS_ITS | Encounter Summary ---
Author Organization [facility] Address [facility] [place] [address] Care Team Providers Care Dental Biller Name Role Phone Maximilian Fall MD Primary Care Provider [phone] Encounter Details Date Type Department Care Team (Late st Contact Info) Description 02/22/2019 3:30 PM EDT - 02/22/2019 4:15 PM EDT Surgery [place] [address] Dion Barlow MD [facility] [place] [address] COLONOSCOPY FLEXIBLE, WITH BX (WRVU 3.56) Social [...] - 02/22/2019 5:05 PM EDT Please call [phone] before 8pm Mon-Fri with problems, questions or concerns. If you call after 8pm or on weekends, call the Hospital at [phone] and ask to speak to the Firearms Expert regional property manager and the batch still operator will contact that person for you. * Attachments The following attachments cannot be sent through Care Everywhere. * Colonoscopy: Post-op (Ugandan) * Colon Polyps (Ugandan) documented in this encounter Medications at Time [...] Vascular Unit Level 3 [place] [phone] Bishop Godinez MD [facility] [place] [address] 08/15/2024 9:00 AM EDT Office [place] [address] Dion Barlow MD [facility] [place] [address] 09/01/2024 11:20 AM EDT Office Visit Dermatology at [facility] [address] [place] [address] Gómez Mercer MD [facility] DR EDD[place] [address] 09/21/2024 2:45 PM EDT Office Visit Pain and Spine Center at [facility] [place] [phone] Trung Hoyos MD [facility] [place] [place] [address] documented as of this encounter Procedures Procedure [...] PM EDT 02/22/2019 4:56 PM EDT Narrative [facility] - 02/22/2019 4:56 PM EDT Specimen requisition ordered. ??Separate Pathology report to follow L Karthik Barlow MD PATHOLOGY/CYTOLOGY O CEE Performing Organization Address City/[facility]/ZIP Co de Phone Number [facility] [place] [address] * Specimen to Pathology (02/22/2019 4:56 PM EDT) AP Specimen 02/22/2019 4:56 PM EDT 02/22/2019 4:56 PM EDT Narrative [facility] - 02/22/2019 4:56 PM EDT Specimen requisition ordered. ??Separate Pathology report to follow L Karthik Barlow MD PATHOLOGY/CYTOLOGY O RDMELISSA Performing Organization Address City/[facility]/ZIP Co de Phone Number [facility] [place] [address] * Specimen to Pathology (02/22/2019 4:56 PM EDT) AP Specimen 02/22/2019 4:56 PM EDT 02/22/2019 4:56 PM EDT Narrative [facility] - 02/22/2019 4:56 PM EDT Specimen requisition ordered. ??Separate Pathology report to follow Dion Barlow MD PATHOLOGY/CYTOLOGY O RDMELISSA Performing Organization Address City/[facility]/ZIP Co de Phone Number [facility] [place] [address] * Specimen to Pathology (02/22/2019 4:56 PM EDT) AP Specimen 02/22/2019 4:56 PM EDT 02/22/2019 4:56 PM EDT Narrative [facility] - 02/22/2019 4:56 PM EDT Specimen requisition ordered. ??Separate Pathology report to follow L Karthik Barlow MD PATHOLOGY/CYTOLOGY O CEE Performing Organization Address [facility] [place] [address] * Specimen to Pathology (02/22/2019 4:56 PM EDT) AP Specimen 02/22/2019 4:56 PM EDT 02/22/2019 4:56 PM EDT Narrative [facility] - 02/22/2019 4:56 PM EDT Specimen requisition ordered. ??Separate Pathology report to follow L Karthik Barlow MD PATHOLOGY/CYTOLOGY O CEE Performing Organization Address [facility] [place] [address] * Specimen to Pathology (02/22/2019 4:56 PM EDT) AP Specimen 02/22/2019 4:56 PM EDT 02/22/2019 4:56 PM EDT Narrative [facility] - 02/22/2019 4:56 PM EDT Specimen requisition ordered. ??Separate Pathology report to follow L Karthik Barlow MD PATHOLOGY/CYTOLOGY O CEE Performing Organization Address [facility] [place] [address] * Specimen to Pathology (02/22/2019 4:56 PM EDT) AP Specimen 02/22/2019 4:56 PM EDT 02/22/2019 4:56 PM EDT Narrative [facility] - 02/22/2019 4:56 PM EDT Specimen requisition ordered. ??Separate Pathology report to follow L Karthik Barlow MD PATHOLOGY/CYTOLOGY O CEE Performing Organization Address [facility] Co de Phone Number [facility] [place] [address] * Specimen to Pathology (02/22/2019 4:56 PM EDT) AP Specimen 02/22/2019 4:56 PM EDT 02/22/2019 4:56 PM EDT Narrative [facility] - 02/22/2019 4:56 PM EDT Specimen requisition ordered. ??Separate Pathology report to follow L Karthik Barlow MD PATHOLOGY/CYTOLOGY O RDERABLES Performing Organization Address [facility] [place] [address] * Surgical Pathology Report (02/22/2019 4:23 PM EDT) Final Diagnosis [id number] ? Location: 4T; EA06; A The signing [...] dysplasia is seen. CR-PX Electronically signed by: ??Ana Tucker MD Verified: ??02/26/2019 ?Pathologist Performed at: ??-[facility] [place], [place], [place] CLINICAL INFORMATION Specimen Submitted: A - [...] labeled H1-H2. ??apb 02/26/2019 4:24 PM EDT [facility] GI Biopsy 02/22/2019 4:23 PM EDT [...] PM EDT 02/22/2019 4:23 PM EDT L Katrhik Barlow MD PATHOLOGY/CYTOLOGY O RDERABLES [facility] [place] [address] * COLONOSCOPY (02/22/2019 3:57 PM EDT) COLONOSCOPY [facility] Endoscopy ___ Procedure Date: 02/22/2019 3:57 PM ? Patient Name: Brian Rodriguez ? Date of : 1950 ? Age: 68 ? Order #: [id number] ? Instrument Name: [id number] ? ___ Procedure: ? Colonoscopy Indications: ? High risk colon cancer surveillance: ? Ulcerative colitis Patient Profile: ? This is a 68 year old male. This ? patient has left-sided ulcerative ? colitis, is taking sulfasalazine and ? cortenemas and is experiencing mild ? symptoms. Providers: ? L. Karthik Barlow MD, Alannah Singletary, ? RONY, Anita Davis Referring : ?Maximilian Fall MD [...] preparation was evaluated using ? the BBPS ([place] Bowel Preparation ? Scale) with scores of: [...] RN) documented in this encounter Care Teams Dental Biller Relationship Specialty Start Date End Date Maximilian Fall MD [address] [place] [address] PCP - General 10/01/11 02/13/21 documented as of this encounter
--- OUTSIDE RECORDS SUMMARY | 2024-06-29 23:34 | XMS_ITS | Encounter Summary ---
Author Organization [facility] [place] [address] Care Team Providers Care Armature Winder Repairer Name Role Phone Maximilian Fall MD Primary Care Provider [phone] Encounter Details Date Type Department Care Team (Late st Contact Info) Description 03/01/2020 Telephone [place] [address] Suzanne Guillermo Social History Tobacco [...] Vascular Unit Level 3 [place] [phone] Bishop Godinez MD [facility] [place] [address] 08/15/2024 9:00 AM EDT Office [place] [address] Dion Barlow MD [facility] [place] [address] 09/01/2024 11:20 AM EDT Office Visit Dermatology at [facility] [address] [place] [address] Gómez Mercer MD [facility] [place] [address] 09/21/2024 2:45 PM EDT Office Visit [place] [address] Trung Hoyos MD [facility] [place] [address] documented as of this encounter Visit Diagnoses Not on filedocumented in this encounter Care Teams Armature Winder Repairer Relationship Specialty Start Date End Date Maximilian Fall MD [address] [place] [address] PCP - General 10/01/11 02/13/21 documented as of this encounter
--- OUTSIDE RECORDS SUMMARY | 2024-06-29 23:34 | XMS_ITS | Encounter Summary ---
Author Organization [facility] [place] [address] Care Team Providers Care Spring Fitter Helper Name Role Phone Maximilian Fall MD Primary Care Provider [phone] Encounter Details Date Type Department Care Team (Late st Contact Info) Description 11/10/2018 Telephone Gastroenterology at [facility] [place] [address] Rachel Corral Social History Tobacco Use Types [...] Level 3 Wing B at [place] [phone] Bishop Godinez MD [facility] [place] [address] 08/15/2024 9:00 AM EDT Office [place] [address] Dion Barlow MD [facility] [place] [address] 09/01/2024 11:20 AM EDT Office Visit Dermatology at [address] [phone] Gómez Mercer MD [facility] [place] [address] 09/21/2024 2:45 PM EDT Office Visit Pain and Spine Center at [place] [phone] Trung Hoyos MD [facility] [place] [address] documented as of this encounter Visit Diagnoses Not on filedocumented in this encounter Care Teams Spring Fitter Helper Relationship Specialty Start Date End Date Maximilian Fall MD [address] [place] [address] PCP - General 10/01/11 02/13/21 documented as of this encounter
--- OUTSIDE RECORDS SUMMARY | 2024-06-29 23:34 | XMS_ITS | Encounter Summary ---
Author Organization [facility] [place] [address] Care Team Providers Care Miner Operator Name Role Phone Maximilian Fall MD Primary Care Provider [phone] Encounter Details Date Type Department Care Team (Latest Contact Info) Description 05/09/2019 10:20 AM EDT Office [place] [address] Dion Barlow MD [facility] [place] [address] Left sided colitis without complications Social History [...] Overview Note:? Colonoscopy 04/08/10 (Dr. Gomes [facility]) - inflammation only within the rectum and sigmoid; extent of the exam was to the hepatic flexure; biopsies proximal to the sigmoid nl ?? Repeat exam 11/27/11 [place] mildly active colitis in the sigmoid colon [...] needed 20 min of this 25 min [id number] visit was spent counseling the patient in the issues outlined above. Davina Barlow MD Vp Salesacademic computing director Co-Director, [facility] Section of Gastroenterology [place] [address] documented in this encounter Plan of Treatment Upcoming Encounters Date Type Department Care Team (Late st Contact Info) Description 07/01/2024 Hospital Encounter Heart and Vascular Unit Level 3 [place] [address] Bishop Godinez MD [facility] [place] [address] 08/15/2024 9:00 AM EDT Office [place] [address] Dion Barlow MD [facility] [place] [address] 09/01/2024 11:20 AM EDT Office Visit Dermatology at [place] [address] [place] [address] Gómez Mercer MD [facility] [address] 09/21/2024 2:45 PM EDT Office Visit [place] [phone] Trung Hoyos MD [facility] [place] [address] documented as of this encounter Visit Diagnoses Diagnosis Left sided colitis without complications Left sided ulcerative (chronic) colitis documented in this encounter Care Teams Miner Operator Relationship Specialty Start Date End Date Maximilian Fall MD [address] [place] [address] PCP - General 10/01/11 02/13/21 documented as of this encounter
--- OUTSIDE RECORDS SUMMARY | 2024-06-29 23:34 | XMS_ITS | Encounter Summary ---
Author Organization [facility] [place] [address] Care Team Providers Care Cylinder Press Operator Helper Name Role Phone Maximilian Fall MD Primary Care Provider [phone] Reason for Visit * Reason Onset Date Comments Medication Refill 02/16/2020 Encounter Details Date Type Department Care Team (Late st Contact Info) Description 02/16/2020 [place] [phone] Bethany Trivedi RN Left sided colitis without [...] Vascular Unit Level 3 [place] [address] Bishop Godinez MD [facility] [address] 08/15/2024 9:00 AM EDT Office Visit Gastroenterology at [place] [phone] Dion Barlow MD [facility] [place] [address] 09/01/2024 11:20 AM EDT Office Visit Dermatology at [address] [place] [phone] Gómez Mercer MD [facility] [place] [address] 09/21/2024 2:45 PM EDT Office Visit [place] [address] Trung Hoyos MD [facility] [place] [address] documented as of this encounter Visit Diagnoses Diagnosis Left sided colitis without complications Left sided ulcerative (chronic) colitis documented in this encounter Care Teams Cylinder Press Operator Helper Relationship Specialty Start Date End Date Maximilian Fall MD [address] [place] [address] PCP - General 10/01/11 02/13/21 documented as of this encounter
--- OUTSIDE RECORDS SUMMARY | 2024-06-29 23:34 | XMS_ITS | Encounter Summary ---
Author Organization [facility] [place] [address] Care Team Providers Care Film Recordist Name Role Phone Maximilian Fall MD Primary Care Provider [phone] Encounter Details Date Type Department Care Team (Latest Contact Info) Description 02/22/2019 2:13 PM EDT - 02/22/2019 5:26 PM EDT Hospital Encounter [place] [address] Dion Barlow MD [facility] [place] [address] Discharge Disposition: Home Social History Tobacco Use [...] - 02/22/2019 5:05 PM EDT Please call [phone] before 8pm Mon-Fri with problems, questions or concerns. If you call after 8pm or on weekends, call the Hospital at [phone] and ask to speak to the Gender Studies Professor customer operations specialist and the weighbridge operator will contact that person for you. * Attachments The following attachments cannot be sent through Care Everywhere. * Colonoscopy: Post-op (Nepalese) * Colon Polyps (Nepalese) documented in this encounter Medications at Time [...] Vascular Unit Level 3 [place] [address] Bishop Godinez MD [facility] [place] [address] 08/15/2024 9:00 AM EDT Office Visit [place] [address] Dion Barlow MD [facility] [place] [address] 09/01/2024 11:20 AM EDT Office Visit Dermatology at [facility] [address] [place] [address] Gómez Mercer MD [facility] DR EDDIE [place] [address] 09/21/2024 2:45 PM EDT Office Visit Pain and Spine Center at [facility] [place] [address] Trung Hoyos MD [facility] [place] [address] documented as of this encounter Procedures Procedure [...] Organization Address [facility]/ZIP Co de Phone Number [facility] [place] [address] * Specimen to Pathology (02/22/2019 4:56 PM EDT) AP Specimen 02/22/2019 4:56 PM EDT 02/22/2019 4:56 PM EDT Narrative [facility] - 02/22/2019 4:56 PM EDT Specimen requisition ordered. ??Separate Pathology report to follow L Karthik Barlow MD PATHOLOGY/CYTOLOGY O CEE Performing Organization Address [facility]/ZIP Co de Phone Number [facility] [place] [address] * Specimen to Pathology (02/22/2019 4:56 PM EDT) AP Specimen 02/22/2019 4:56 PM EDT 02/22/2019 4:56 PM EDT Narrative [facility] - 02/22/2019 4:56 PM EDT Specimen requisition ordered. ??Separate Pathology report to follow L Karthik Barlow MD PATHOLOGY/CYTOLOGY O CEE Performing Organization Address [facility]/ZIP Co de Phone Number [facility] [place] [address] * Specimen to Pathology (02/22/2019 4:56 PM EDT) AP Specimen 02/22/2019 4:56 PM EDT 02/22/2019 4:56 PM EDT Narrative [facility] - 02/22/2019 4:56 PM EDT Specimen requisition ordered. ??Separate Pathology report to follow L Karthik Barlow MD PATHOLOGY/CYTOLOGY O CEE Performing Organization Address [facility] [place] [address] * Specimen to Pathology (02/22/2019 4:56 PM EDT) AP Specimen 02/22/2019 4:56 PM EDT 02/22/2019 4:56 PM EDT Narrative [facility] - 02/22/2019 4:56 PM EDT Specimen requisition ordered. ??Separate Pathology report to follow L Karthik Barlow MD PATHOLOGY/CYTOLOGY O CEE Performing Organization Address [facility] [place] [address] * Specimen to Pathology (02/22/2019 4:56 PM EDT) AP Specimen 02/22/2019 4:56 PM EDT 02/22/2019 4:56 PM EDT Narrative [facility] - 02/22/2019 4:56 PM EDT Specimen requisition ordered. ??Separate Pathology report to follow L Karthik Barlow MD PATHOLOGY/CYTOLOGY O CEE Performing Organization Address [facility] [place] [address] * Specimen to Pathology (02/22/2019 4:56 PM EDT) AP Specimen 02/22/2019 4:56 PM EDT 02/22/2019 4:56 PM EDT Narrative [facility] - 02/22/2019 4:56 PM EDT Specimen requisition ordered. ??Separate Pathology report to follow L Karthik Barlow MD PATHOLOGY/CYTOLOGY O RDERABLES Performing Organization Address [facility] Co de Phone Number [facility] [place] [address] * Specimen to Pathology (02/22/2019 4:56 PM EDT) AP Specimen 02/22/2019 4:56 PM EDT 02/22/2019 4:56 PM EDT Narrative [facility] - 02/22/2019 4:56 PM EDT Specimen requisition ordered. ??Separate Pathology report to follow L Karthik Barlow MD PATHOLOGY/CYTOLOGY O RDERAOMAR Performing Organization Address [facility] Co de Phone Number [facility] [place] [address] * Surgical Pathology Report (02/22/2019 4:23 PM EDT) Final Diagnosis [id number] ? Location: 4T; EA06; A The signing [...] HARVEY, Ana Verified: ??02/26/2019 ?Pathologist Performed at: ??-[facility] [place], [place], [place] CLINICAL INFORMATION Specimen Submitted: A - [...] MD PATHOLOGY/CYTOLOGY O RDERABLES Performing Organization Address City/State/[facility] Co de Phone Number [facility] [place] [address] * COLONOSCOPY (02/22/2019 3:57 PM EDT) COLONOSCOPY [facility] Endoscopy ___ Procedure Date: 02/22/2019 3:57 PM ? Patient Name: Brian Rodriguez ? Date of : 1950 ? Age: 68 ? Order #: [id number] ? Instrument Name: [id number] ? ___ Procedure: ? Colonoscopy Indications: ? High risk colon cancer surveillance: ? Ulcerative colitis Patient Profile: ? This is a 68 year old male. This ? patient has left-sided ulcerative ? colitis, is taking sulfasalazine and ? cortenemas and is experiencing mild ? symptoms. Providers: ? L. Karthik Barlow MD, Alannah Singletary, ? RONY, Anita Davis Referring MD: ?Maximilian Fall MD Medicines: ? [...] preparation was evaluated using ? the BBPS ([place] Bowel Preparation ? Scale) with scores of: [...] RN) documented in this encounter Care Teams Film Recordist Relationship Specialty Start Date End Date Maximilian Fall MD [address] [place] [address] PCP - General 10/01/11 02/13/21 documented as of this encounter
--- OUTSIDE RECORDS SUMMARY | 2024-06-29 23:34 | XMS_ITS | Encounter Summary ---
Author Organization [facility] [place] [address] Care Team Providers Care Building Construction Supervisor Name Role Phone Maximilian Fall MD Primary Care Provider [phone] Reason for Visit * Reason Onset Date Comments Prior Authorization 05/10/2018 Encounter Details Date Type Department Care Team (Late st Contact Info) Description 05/10/2018 Telephone [place] [address] Jarret Roa RNrelationship associate Social History Tobacco Use Types Packs/Day Years [...] 4 weeks Insurance & Phone #: [facility]AY[facility] [facility] Part D ID #: [id number] Trialed (dosage, frequency): hydrocortisone enemas (causes nausea), sulfasalazine, canasa (caused pelvic pain), cortifoam (manufacturing shortage), Asacol, Rowasa, prednisone Diagnosis/ICD-10: 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 Notes: Submitted via CoverMyMeds Approved documented in this encounter Plan of Treatment Upcoming Encounters Date Type Department Care Team (Late st Contact Info) Description 07/01/2024 Hospital Encounter Heart and Vascular Unit Level 3 Wing B at [place] [phone] Bishop Godinez MD [facility] [place] [address] 08/15/2024 9:00 AM EDT Office [place] [address] Dion Barlow MD [facility] [place] [address] 09/01/2024 11:20 AM EDT Office Visit Dermatology at [address] [phone] Gómez Mercer MD [facility] [address] 09/21/2024 2:45 PM EDT Office Visit Pain and Spine Center at [place] [phone] Trung Hoyos MD [facility] [place] [address] documented as of this encounter Visit Diagnoses Not on filedocumented in this encounter Care Teams Building Construction Supervisor Relationship Specialty Start Date End Date Maximilian Fall MD [address] [place] [address] PCP - General 10/01/11 02/13/21 documented as of this encounter
--- OUTSIDE RECORDS SUMMARY | 2024-06-29 23:34 | XMS_ITS | Encounter Summary ---
Author Organization [facility] [place] [address] Care Team Providers Care Plasma Processing Technician Name Role Phone Maximilian Fall MD Primary Care Provider [phone] Encounter Details Date Type Department Care Team (Latest Contact Info) Description 04/25/2019 12:15 PM EDT Ancillary Procedure [place] [address] Marcelle Weinberg APRN [facility] [place] [address] Left sided colitis without complications Social History [...] Vascular Unit Level 3 [place] [phone] Bishop Godinez MD [facility] [place] [address] 08/15/2024 9:00 AM EDT Office [place] [phone] Dion Barlow MD [facility] [place] [address] 09/01/2024 11:20 AM EDT Office Visit Dermatology at [facility] [address] [place] [address] Gómez Mercer MD [facility] [place] [address] 09/21/2024 2:45 PM EDT Office Visit [facility] [place] [phone] Trung Hoyos MD [facility] [place] [address] documented as of this encounter Visit Diagnoses Diagnosis Left sided colitis without complications Left sided ulcerative (chronic) colitis documented in this encounter Care Teams Plasma Processing Technician Relationship Specialty Start Date End Date Maximilian Fall MD [address] [place] [address] PCP - General 10/01/11 02/13/21 documented as of this encounter
--- OUTSIDE RECORDS SUMMARY | 2024-06-29 23:34 | XMS_ITS | Encounter Summary ---
Author Organization [facility] Address [facility] Lina [place]omez [place] [address] Care Team Providers Care Remote Sensing Engineer Name Role Phone Maximilian Fall MD Primary Care Provider [phone] Encounter Details Date Type Department Care Team (Latest Contact Info) Description 04/28/2019 3:07 PM EDT - 04/28/2019 6:06 PM EDT Hospital [place] [address] Iza Coates MD [facility] [place] [address] Discharge Disposition: Home Social History Tobacco Use [...] Care Everywhere. * EGD (Upper Endoscopy): Post-op (Telugu) documented in this encounter Medications at Time [...] sedation) Iza Coates MD Gastroenterology attending Pager [phone] documented in this encounter Plan of Treatment Upcoming Encounters Date Type Department Care Team (Late st Contact Info) Description 07/01/2024 Hospital Encounter Heart and Vascular Unit Level 3 [place] [phone] Bishop Godinez MD [facility] [place] [address] 08/15/2024 9:00 AM EDT Office [place] [address] Dion Barlow MD [facility] [place] [address] 09/01/2024 11:20 AM EDT Office Visit Dermatology at [facility] [address] [place] [address] Gómez Mercer MD [facility] DR EDDIE [place] [address] 09/21/2024 2:45 PM EDT Office Visit [place] [address] Trung Hoyos MD [facility] [place] [address] documented as of this encounter Procedures Procedure [...] PM EDT 04/28/2019 5:03 PM EDT Narrative [facility] - 04/28/2019 5:03 PM EDT Specimen requisition ordered. ??Separate Pathology report to follow Iza Coates MD PATHOLOGY/CYTOLOG Y ORDERABLES [facility] [place] [address] * Specimen to Pathology (04/28/2019 5:03 PM EDT) AP Specimen 04/28/2019 5:03 PM EDT 04/28/2019 5:03 PM EDT Narrative [facility] - 04/28/2019 5:03 PM EDT Specimen requisition ordered. ??Separate Pathology report to follow Iza Coates MD PATHOLOGY/CYTOLOG Y ORDERABLES [facility] [place] [address] * Surgical Pathology Report (04/28/2019 4:50 PM EDT) Final Diagnosis [id number] ? Location: 4T; EA10; A The signing pathologist has (i) examined the relevant preparation(s) for the specimen(s) and (ii) rendered or confirmed the diagnosis(es). . ?Surgical Pathology DIAGNOSIS A - Random duodenum, biopsy: Duodenal mucosa within normal limits, including preserved villous architecture. B - Fundic gland, polypectomy: Gastric fundic gland polyp. Electronically signed by: ??Joana Soler MD Verified: ??05/02/2019 ?Pathologist Performed at: ??-[facility] Dept. of Pathology, [place], [place] CLINICAL INFORMATION Specimen Submitted: A - [...] labeled B1. ??ejr 05/02/2019 4:02 PM EDT [facility] GI Biopsy 04/28/2019 4:50 PM EDT 04/28/2019 4:50 PM EDT GI Biopsy 04/28/2019 4:50 PM EDT 04/28/2019 4:50 PM EDT Iza Coates MD PATHOLOGY/CYTOLOG Y ORDERABLES Performing Organization Address [facility]/State/ZIP Co de Phone Number [facility] [place] [address] * UPPER GI ENDOSCOPY (04/28/2019 4:39 PM EDT) UPPER GI ENDOSCOPY [facility] Endoscopy Procedure Date: 04/28/2019 4:39 PM ? Patient Name: Brian Rodriguez ? N: [id number] ? Date of : 1950 ? Age: 68 ? Order #: [id number] ? Instrument Name: [id number] ? Procedure: ? Upper GI endoscopy Indications: ? Abnormal CT of the GI tract (duodenal ? thickening) Providers: ? Iza Coates MD, Nohemi Ball, ? RN, Jonathan Ko, Executive Officer Referring MD: ?Maximilian Fall MD Requesting Provider: [...] GENERAL SURGICAL ORD ERABLES Performing Organization Address City/[facility]/ZIP Co de Phone Number [facility] * POCT Glucose (04/28/2019 3:46 PM EDT) Glucose, POC 91 65 - 199 mg/dL [facility] Comment: Supplemental ranges: <140 mg/dL before meals <180 mg/dL all other times of the day Blood specimen (specimen) 04/28/2019 3:46 PM EDT 04/28/2019 3:46 PM EDT Iza Coates MD POINT OF CARE KISHOR T ORDERABLES Performing Organization Address City/[facility] Co de Phone Number [facility] [place] [address] documented in this encounter Visit Diagnoses Not on filedocumented in this encounter Active and Recently Administered Medications Times are shown in EDT. PRN Medication Order 04/26/2019 04/27/2019 04/28/2019 fentaNYL 50 mcg/mL multi-dose injection (CANCELED) ONCE PRN, Starting on Tresa 04/28/19 at 1639, Until Tresa 04/28/19 at 2006, Intra-Operative (Intra-Procedure), Routine 1639 (Given - Provid er: Nohemi Ball RN)164 (Given - Provider: Nohemi Ball RN)1644 (Given - Provider: Nohemi Ball RN) midazolam (PF) (VERSED) multi-dose injection (CANCELED) ONCE PRN, Starting on Tresa 04/28/19 at 1639, Until Tresa 04/28/19 at 2006, Intra-Operative (Intra-Procedure), Routine 1639 (Given - Provid er: Nohemi Ball RN)164 (Given - Provider: Nohemi Ball RN)1643 (Given - Provider: Nohemi Ball RN)7364 (Given - Provider: Nohemi Ball RN) documented in this encounter Care Teams Remote Sensing Engineer Relationship Specialty Start Date End Date Maximilian Fall MD [address] [place] [address] PCP - General 10/01/11 02/13/21 documented as of this encounter
--- OUTSIDE RECORDS SUMMARY | 2024-06-29 23:34 | XMS_ITS | Encounter Summary ---
Author Organization [facility] [place] [address] Care Team Providers Care Driver Examiner Name Role Phone Maximilian Fall MD Primary Care Provider [phone] Encounter Details Date Type Department Care Team (Late st Contact Info) Description 03/07/2019 Ancillary Procedure [place] [address] Dion Barlow MD [facility] [place] [address] Social History Tobacco Use Types Packs/Day Years [...] Vascular Unit Level 3 [place] [address] Bishop Godinez MD [facility] [place] [place] [address] 08/15/2024 9:00 AM EDT Office [place] [address] Dion Barlow MD [facility] [address] 09/01/2024 11:20 AM EDT Office Visit Dermatology at [facility] [address] [place] [address] Gómez Mercer MD [facility] DR EDD[place] [address] 09/21/2024 2:45 PM EDT Office Visit [place] [address] Trung Hoyos MD [facility] [place] [address] documented as of this encounter Procedures Procedure Name Priority Date/Time Associated Diagnosis Comments FILM LIBRARY STORAGE ONLY CT ABDOMEN AND PELVIS Routine 03/07/2019 12:00 AM EDT documented in this encounter Results * Film Library- Storage Only CT Abdomen & Pelvis (03/07/2019 12:00 AM EDT) Narrative [facility] - 04/27/2019 3:15 AM EDT This exam is auto-finalizing. It's purpose is for storage only. Dion Barlow MD IMG FILM LIBRARY ORD ERABLES [place], [place] documented in this encounter Visit Diagnoses Not on filedocumented in this encounter Care Teams Driver Examiner Relationship Specialty Start Date End Date Maximilian Fall MD [address] [place] [address] PCP - General 10/01/11 02/13/21 documented as of this encounter
--- OUTSIDE RECORDS SUMMARY | 2024-06-29 23:34 | XMS_ITS | Encounter Summary ---
Author Organization [facility] Address [facility] [place] [address] Care Team Providers Care Senior Web Designer Name Role Phone Josue Wilkinson MD Primary Care Provider [phone] Encounter Details Date Type Department Care Team (Late st Contact Info) Description 02/26/2021 4:00 PM EDT - 02/26/2021 5:00 PM EDT Surgery [place] [address] Dion Barlow MD [facility] [place] [address] COLONOSCOPY, POLYPECTOMY, REMOVAL LESION BY SNARE (WRVU [...] to be checked. Thursday-Thursday Same Day Endo [phone] Otherwise contact [phone] and ask to speak to the office supervisor garden consultant Follow up care is a le [...] Vascular Unit Level 3 [place] [address] Bishop Godinez MD [facility] [place] [address] 08/15/2024 9:00 AM EDT Office Visit [place] [address] Dion Barlow MD [facility] [place] [address] 09/01/2024 11:20 AM EDT Office Visit Dermatology at [place] [address] [place] [address] Gómez Mercer MD [facility] [place] [address] 09/21/2024 2:45 PM EDT Office Visit [facility] [place] [address] Trung Hoyos MD [facility] [place] [address] documented as of this encounter Procedures Procedure Name Priority Date/Time Associated Diagnosis Comments POCT GLUCOSE Routine 02/26/2021 5:51 PM EDT SPECIMEN TO PATHOLOGY Routine 02/26/2021 5:10 PM EDT SPECIMEN TO PATHOLOGY Routine 02/26/2021 5:10 PM EDT SPECIMEN TO PATHOLOGY Routine 02/26/2021 5:10 PM EDT SURGICAL PATHOLOGY REPORT Routine 02/26/2021 4:53 PM EDT Colonoscopy, Sallie Tang ([id number]) 02/26/2021 4:28 PM EDT a repeat colonoscopy in two years from 02/22/19 COLONOSCOPY Routine 02/26/2021 4:21 PM EDT POCT GLUCOSE Routine 02/26/2021 3:42 PM EDT documented in this encounter Results * POCT Glucose (02/26/2021 5:51 PM EDT) Glucose, POC 160 65 - 199 mg/dL [facility] Comment: Supplemental ranges: <140 mg/dL before meals <180 mg/dL all other times of the day Blood specimen (specimen) 02/26/2021 5:51 PM EDT 02/26/2021 12:00 PM EDT L Karthik Barlow MD POINT OF CARE TEST O CEE Performing Organization Address [facility] [place] [address] * Specimen to Pathology (02/26/2021 5:10 PM EDT) AP Specimen 02/26/2021 5:10 PM EDT 02/26/2021 5:10 PM EDT Narrative [facility] - 02/26/2021 5:10 PM EDT Specimen requisition ordered. ??Separate Pathology report to follow L Karthik Barlow MD PATHOLOGY/CYTOLOGY O CEE Performing Organization Address City/[facility] [place] [address] * Specimen to Pathology (02/26/2021 5:10 PM EDT) AP Specimen 02/26/2021 5:10 PM EDT 02/26/2021 5:10 PM EDT Narrative [facility] - 02/26/2021 5:10 PM EDT Specimen requisition ordered. ??Separate Pathology report to follow L Karthik Barlow MD PATHOLOGY/CYTOLOGY O CEE Performing Organization Address City/[facility] Co de Phone Number [facility] [place] [address] * Specimen to Pathology (02/26/2021 5:10 PM EDT) AP Specimen 02/26/2021 5:10 PM EDT 02/26/2021 5:10 PM EDT Narrative [facility] - 02/26/2021 5:10 PM EDT Specimen requisition ordered. ??Separate Pathology report to follow L Karthik Barlow MD PATHOLOGY/CYTOLOGY O RDERAOMAR [facility] [place] [address] * Surgical Pathology Report (02/26/2021 4:53 PM EDT) Final Diagnosis [id number] ? Location: 4T; EA08; A The signing [...] MD Verified: ??03/04/2021 16:33 ??Pathologist Performed at: ??-[facility] Dept. of Pathology, [place], [place] SPECIMEN(S) SUBMITTED A - right colon [...] labeled C1. ??shb 03/04/2021 4:33 PM EDT [facility] GI Biopsy 02/26/2021 4:53 PM EDT 02/26/2021 4:53 PM EDT GI Biopsy 02/26/2021 4:53 PM EDT 02/26/2021 4:53 PM EDT GI Biopsy 02/26/2021 4:53 PM EDT 02/26/2021 4:53 PM EDT L Karthik Barlow MD PATHOLOGY/CYTOLOGY O RDERABLES [facility] [place] [address] * COLONOSCOPY (02/26/2021 4:21 PM EDT) COLONOSCOPY [facility] Endoscopy ___ Procedure Date: 02/26/2021 4:21 PM ? Patient Name: Brian Rodriguez ? Date of : 1950 ? Age: 70 ? Order #: [id number] ? Instrument Name: [id number] ? ___ Procedure: ? Colonoscopy Indications: ? High risk colon cancer surveillance: ? Ulcerative colitis Patient Profile: ? This is a 70 year old male. This ? patient has left-sided ulcerative ? colitis, is taking sulfasalazine and ? topical steroid foam, and he is ? experiencing mild symptoms. Providers: ? Davina Barlow MD, Marcelo Maloney ? Robi Lawson Referring : ?Josue Alfaraz Medicines: ? Midazolam 4 mg IV, Fentanyl [...] preparation was evaluated using ? the BBPS ([place] Bowel Preparation ? Scale) with scores of: [...] Glucose, POC 128 65 - 199 mg/dL [facility] Comment: Supplemental ranges: <140 mg/dL before meals <180 mg/dL all other times of the day Blood specimen (specimen) 02/26/2021 3:42 PM EDT 02/26/2021 12:00 PM EDT Dion Barlow MD POINT OF CARE TEST O RDERABLES Performing Organization Address City/[facility]/ZIP Co de Phone Number [facility] [place] [phone] documented in this encounter Visit Diagnoses Not [...] RN) documented in this encounter Care Teams Senior Web Designer Relationship Specialty Start Date End Date Josue Wilkinson MD PCP - General General Internal Medicine 02/14/2107/26 documented as of this encounter
--- OUTSIDE RECORDS SUMMARY | 2024-06-29 23:34 | XMS_ITS | Encounter Summary ---
Author Organization [facility] [place] [address] Care Team Providers Care Grain Inspector Name Role Phone Maximilian Fall MD Primary Care Provider [phone] Encounter Details Date Type Department Care Team (Late st Contact Info) Description 02/23/2019 Telephone [place] [address] Suzanne Guillermo Social History Tobacco [...] with Farideh within 8-10 weeks. Dg Roth vm, sent letter and set up recall documented in this encounter Plan of Treatment Upcoming Encounters Date Type Department Care Team (Late st Contact Info) Description 07/01/2024 Hospital Encounter Heart and Vascular Unit Level 3 [place] [address] Bishop Godinez MD [facility] [place] [address] 08/15/2024 9:00 AM EDT Office Visit Gastroenterology at [place] [phone] Dion Barlow MD [facility] [place] [address] 09/01/2024 11:20 AM EDT Office Visit Dermatology at [place] [address] [place] [address] Gómez Mercer MD [facility] [address] 09/21/2024 2:45 PM EDT Office Visit Pain and Spine Center at [place] [phone] Trung Hoyos MD [facility] [place] [address] documented as of this encounter Visit Diagnoses Not on filedocumented in this encounter Care Teams Grain Inspector Relationship Specialty Start Date End Date Maximilian Fall MD [address] [place] [address] PCP - General 10/01/11 02/13/21 documented as of this encounter
--- OUTSIDE RECORDS SUMMARY | 2024-06-29 23:34 | XMS_ITS | Encounter Summary ---
Author Organization [facility] [place] [address] Care Team Providers Care Channel Cementer Name Role Phone Maximilian Fall MD Primary Care Provider [phone] Encounter Details Date Type Department Care Team (Late st Contact Info) Description 04/26/2019 Ancillary Procedure [place] [address] Dion Barlow MD [facility] [place] [address] Social History Tobacco Use Types Packs/Day Years [...] Vascular Unit Level 3 [place] [address] Bishop Godinez MD [facility] [place] [address] 08/15/2024 9:00 AM EDT Office Visit [place] [address] Dion Barlow MD [facility] [place] [address] 09/01/2024 11:20 AM EDT Office Visit Dermatology at [facility] [address] [place] [address] Gómez Mercer MD [facility] DR EDDIE [place] [address] 09/21/2024 2:45 PM EDT Office Visit [facility] [place] [address] Trung Hoyos MD [facility] [place] [address] documented as of this encounter Procedures Procedure Name Priority Date/Time Associated Diagnosis Comments FILM LIBRARY STORAGE ONLY CT ABDOMEN AND PELVIS Routine 04/26/2019 12:00 AM EDT documented in this encounter Results * Film Library- Storage Only CT Abdomen & Pelvis (04/26/2019 12:00 AM EDT) Narrative [facility] - 04/27/2019 3:22 AM EDT This exam is auto-finalizing. It's purpose is for storage only. Dion Barlow MD IMG FILM LIBRARY ORD ERABLES [place], [place] documented in this encounter Visit Diagnoses Not on filedocumented in this encounter Care Teams Channel Cementer Relationship Specialty Start Date End Date Maximilian Fall MD [address] [place] [address] PCP - General 10/01/11 02/13/21 documented as of this encounter
--- OUTSIDE RECORDS SUMMARY | 2024-06-29 23:34 | XMS_ITS | Encounter Summary ---
Author Organization [facility] [place] [address] Care Team Providers Care Title I Coordinator Name Role Phone Maximilian Fall MD Primary Care Provider [phone] Encounter Details Date Type Department Care Team (Latest Contact Info) Description 09/12/2019 3:40 PM EDT Office [place] [address] Dion Barlow MD [facility] [place] [address] Left sided colitis without complications Social History [...] IBD History: ?? Colonoscopy 04/08/10 (Dr. Gomes [facility]) - inflammation only within the rectum and sigmoid; extent of the exam was to the hepatic flexure; biopsies proximal to the sigmoid nl ?? Repeat exam 11/27/11 ([facility] [...] Final ??? UPPER GI ENDOSCOPY 04/28/2019 Final Value:[facility] Endoscopy Procedure Date: 04/28/2019 4:39 PM Patient Name: Brian Rodriguez Date of : 1950 Age: 68 Order #: [id number] Instrument Name: [id number] Procedure: Upper GI endoscopy Indications: Abnormal CT of the GI tract (duodenal thickening) Providers: Iza Coates MD, Nohemi Ball RN, Jonathan Ko, Subway Guard Referring MD: Maximilian Fall MD Requesting Provider: [...] PM ??? Surgical Pathology Report 04/28/2019 Final Value:[id number] Location: 4T; [facility]; A The signing pathologist has (i) examined the relevant preparation(s) for the specimen(s) and (ii) rendered or confirmed the diagnosis(es). . Surgical Pathology DIAGNOSIS A - Random duodenum, biopsy: Duodenal mucosa within normal limits, including preserved villous architecture. B - Fundic gland, polypectomy: Gastric fundic gland polyp. Electronically signed by: Joana Soler MD Verified: 05/02/2019 Pathologist Performed at: -[facility] Dept. of Pathology, [place], [place] CLINICAL INFORMATION Specimen Submitted: A - [...] patient. Anthony Hamlin MD [place] [address] ATTENDING ADDENDUM I interviewed and examined Brian [...] sulfasalazine. 15 min of this 20 min [id number] visit was spent counseling the patient in the issues outlined above. Davina Barlow MD Certified Prosthetist Vice Presidentoperation shift supervisor Co-Director, [facility] Section of [place]enter[place] [address] documented in this encounter Plan of Treatment Upcoming Encounters Date Type Department Care Team (Late st Contact Info) Description 07/01/2024 Hospital Encounter Heart and Vascular Unit Level 3 Wing B at [place] [phone] Bishop Godinez MD [facility] [place] [address] 08/15/2024 9:00 AM EDT Office [place] [address] Dion Barlow MD [facility] [place] [address] 09/01/2024 11:20 AM EDT Office Visit Dermatology at [address] [place] [address] Gómez Mercer MD [facility] [place] [address] 09/21/2024 2:45 PM EDT Office Visit Pain and Spine Center at [place] [phone] Trung Hoyos MD [facility] [place] [address] documented as of this encounter Visit Diagnoses Diagnosis Left sided colitis without complications Left sided ulcerative (chronic) colitis documented in this encounter Care Teams Title I Coordinator Relationship Specialty Start Date End Date Maximilian Fall MD [address] [place] [address] PCP - General 10/01/11 02/13/21 documented as of this encounter
--- OUTSIDE RECORDS SUMMARY | 2024-06-29 23:34 | XMS_ITS | Encounter Summary ---
Author Organization [facility] Address [facility] [place] [address] Care Team Providers Care Director Of Retail Marketing Name Role Phone Maximilian Fall MD Primary Care Provider [phone] Reason for Visit * Reason Onset Date Comments Medication Refill 05/03/2018 Encounter Details Date Type Department Care Team (Late st Contact Info) Description 05/03/2018 Ref[place] [address] Bethany Trivedi, RN Social History Tobacco Use [...] Vascular Unit Level 3 [place] [address] Bishop Godinez MD [facility] [place] [address] 08/15/2024 9:00 AM EDT Office [place] [address] Dion Barlow MD [facility] [place] [place] [address] 09/01/2024 11:20 AM EDT Office Visit Dermatology at [facility] [address] [place] [address] Gómez Mercer MD [facility] [place] [address] 09/21/2024 2:45 PM EDT Office Visit Pain and Spine Center at [facility] [place] [address] Trung Hoyos MD [facility] [place] [address] documented as of this encounter Visit Diagnoses Not on filedocumented in this encounter Care Teams Director Of Retail Marketing Relationship Specialty Start Date End Date Maximilian Fall MD [address] [place] [address] PCP - General 10/01/11 02/13/21 documented as of this encounter
--- OUTSIDE RECORDS SUMMARY | 2024-06-29 23:34 | XMS_ITS | Encounter Summary ---
Author Organization [facility] [place] [address] Care Team Providers Care Band Head Saw Operator Name Role Phone Maximilian Fall MD Primary Care Provider [phone] Reason for Visit * Reason Comments Medication Refill Encounter Details Date Type Department Care Team (Late st Contact Info) Description 09/03/2020 Refill Gastroenterology [place] [address] Dion Barlow MD [facility] [place] [address] Social History Tobacco Use Types Packs/Day Years [...] Level 3 [place] [phone] Bishop Godinez MD [facility] [place] [address] 08/15/2024 9:00 AM EDT Office Visit Gastroenterology [place] [address] Dion Barlow MD [facility] [place] [address] 09/01/2024 11:20 AM EDT Office Visit Dermatology at [facility] [address] [place] [address] Gómez Mercer MD [facility] DR [place] [address] 09/21/2024 2:45 PM EDT Office Visit [facility] and Spine [place] [address] Trung Hoyos MD [facility] [place] [address] documented as of this encounter Visit Diagnoses Not on filedocumented in this encounter Care Teams Band Head Saw Operator Relationship Specialty Start Date End Date Maximilian Fall MD [address] [place] [address] PCP - General 10/01/11 02/13/21 documented as of this encounter
--- OUTSIDE RECORDS SUMMARY | 2024-06-29 23:34 | XMS_ITS | Encounter Summary ---
Author Organization [facility] Address [facility] [place] [address] Care Team Providers Care Carbonizer Tester Name Role Phone Maximilian Fall MD Primary Care Provider [phone] Reason for Visit * Reason Onset Date Comments Medication Refill 06/27/2019 Encounter Details Date Type Department Care Team (Late st Contact Info) Description 06/27/2019 Refill [place] [address] Sophia Coleman, [facility] Social History Tobacco Use Types Packs/Day Years [...] Vascular Unit Level 3 [place] [address] Bishop Godinez MD [facility] [address] [place] [id number] 08/15/2024 9:00 AM EDT Office [place] [address] Dion Barlow MD [facility] [place] [address] 09/01/2024 11:20 AM EDT Office Visit Dermatology at [facility] [address] [place] [address] Gómez Mercer MD [facility] DR EDDIE [place] [address] 09/21/2024 2:45 PM EDT Office Visit Pain and Spine Center at [facility] [place] [address] Trung Hoyos MD [facility] [place] [address] documented as of this encounter Visit Diagnoses Not on filedocumented in this encounter Care Teams Carbonizer Tester Relationship Specialty Start Date End Date Maximilian Fall MD [address] [place] [address] PCP - General 10/01/11 02/13/21 documented as of this encounter
--- OUTSIDE RECORDS SUMMARY | 2024-06-29 23:35 | XMS_ITS | Encounter Summary ---
Author Organization [facility] [place] [address] Care Team Providers Care Wire Winding Machine Operator Name Role Phone Maximilian Fall MD Primary Care Provider [phone] Encounter Details Date Type Department Care Team (Late st Contact Info) Description 03/21/2016 - 03/21/2016 11:59 PM EDT Hospital Encounter [place] [phone] Dr Thomas Temporary Pain Discharge Disposition: Home [...] Vascular Unit Level [place] [phone] Bishop Godinez MD [facility] [place] [address] 08/15/2024 9:00 AM EDT Office Visit [place] [address] Dion Barlow MD [facility] [place] [address] 09/01/2024 11:20 AM EDT Office Visit Dermatology at [address] [phone] Gómez Mercer MD [facility] DR EDDIE [place] [address] 09/21/2024 2:45 PM EDT Office Visit [facility] [place] [phone] Trung Hoyos MD [facility] [place] [address] documented as of this encounter Procedures Procedure Name Priority Date/Time Associated Diagnosis Comments FILM LIBRARY STORAGE ONLY CT ABDOMEN AND PELVIS Routine 03/21/2016 12:00 AM EDT Pain documented in this encounter Results * Film Library- Storage Only CT Abdomen & Pelvis (03/21/2016 12:00 AM EDT) Narrative RAFIQ - 03/21/2016 7:24 PM EDT This exam is for storage only and is auto-finalizing. Dr Leiva [facility] FILM LIBRARY ORD ERABLES [place], [place] documented in this encounter Visit Diagnoses Diagnosis Pain Generalized pain documented in this encounter Care Teams Wire Winding Machine Operator Relationship Specialty Start Date End Date Maximilian Fall MD [address] [place] [address] PCP - General 10/01/11 02/13/21 documented as of this encounter
--- OUTSIDE RECORDS SUMMARY | 2024-06-29 23:35 | XMS_ITS | Encounter Summary ---
Author Organization [facility] [place] [address] Care Team Providers Care Drafter Geological Name Role Phone Maximilian Fall MD Primary Care Provider [phone] Encounter Details Date Type Department Care Team (Late st Contact Info) Description 03/13/2016 - 03/13/2016 11:59 PM EDT Hospital Encounter [place] [phone] Dr Thomas Temporary Pain Discharge Disposition: Home [...] Vascular Unit Level 3 [place] [phone] Bishop Godinez MD [facility] [place] [address] 08/15/2024 9:00 AM EDT Office Visit [place] [address] Dion Barlow MD [facility] [place] [address] 09/01/2024 11:20 AM EDT Office Visit Dermatology at [address] [phone] Gómez Mercer MD [facility] DR EDDIE [place] [address] 09/21/2024 2:45 PM EDT Office Visit Pain [place] [phone] Trung Hoyos MD [facility] [place] [address] documented as of this encounter Procedures Procedure Name Priority Date/Time Associated Diagnosis Comments FILM LIBRARY STORAGE ONLY CT ABDOMEN AND PELVIS Routine 03/13/2016 12:00 AM EDT Pain documented in this encounter Results * Film Library- Storage Only CT Abdomen & Pelvis (03/13/2016 12:00 AM EDT) Narrative RAFIQ - 03/22/2016 8:20 AM EDT This exam is for storage only and is auto-finalizing. Dr Leiva [facility] FILM LIBRARY ORD ERABLES [place], [place] documented in this encounter Visit Diagnoses Diagnosis Pain Generalized pain documented in this encounter Care Teams Drafter Geological Relationship Specialty Start Date End Date Maximilian Fall MD [address] [place] [address] PCP - General 10/01/11 02/13/21 documented as of this encounter
--- OUTSIDE RECORDS SUMMARY | 2024-06-29 23:35 | XMS_ITS | Encounter Summary ---
Author Organization [facility] Address [facility] [place] [address] Care Team Providers Care Manufacturing Development Engineer Name Role Phone Maximilian Fall MD Primary Care Provider [phone] Encounter Details Date Type Department Care Team (Latest Contact Info) Description 02/12/2017 10:14 AM EDT - 02/12/2017 1:50 PM EDT Hospital Encounter [place] [address] Dion Barlow MD [facility] [place] [address] Discharge Disposition: Home Social History Tobacco Use [...] - 02/12/2017 12:37 PM EDT Please call [phone] before 8pm with problems, questions or concerns, after 5pm call the Hospital at [phone] and ask to speak to the Audiology Technician construction checker and the bench lathe operator will contact that person for you. [...] sent through Care Everywhere. * COLONOSCOPY: POST-OP (GERMAN) documented in this encounter Medications at Time [...] H&P Notes * Dion Barlow MD - 02/12/2017 10:47 AM EDT [...] Vascular Unit Level 3 [place] [address] Bishop Godinez MD [facility] [place] [address] 08/15/2024 9:00 AM EDT Office [place] [address] Dion Barlow MD [facility] [place] [address] 09/01/2024 11:20 AM EDT Office Visit Dermatology at [facility] [address] [place] [address] Gmóez Mercer MD [facility] DR EDDIE [place] [address] 09/21/2024 2:45 PM EDT Office Visit [facility] [place] [address] Trung Hoyos MD [facility] [place] [address] documented as of this encounter Procedures Procedure [...] 6 PM EDT 02/12/2017 12:16 PM EDT [facility] LABORATORY - 02/12/2017 12:16 PM EDT Specimen requisition ordered. ??Separate Pathology report to follow L Karthik Barlow MD PATHOLOGY/[place] [address] * Specimen to Pathology (surgical or derm) (02/12/2017 12:16 PM EDT) AP Specimen 02/12/2017 12:1 6 PM EDT 02/12/2017 12:16 PM EDT [facility] LABORATORY - 02/12/2017 12:16 PM EDT Specimen requisition ordered. ??Separate Pathology report to follow L Karthik Barlow MD PATHOLOGY/[place] [address] * Specimen to Pathology (surgical or derm) (02/12/2017 12:16 PM EDT) AP Specimen 02/12/2017 12:1 6 PM EDT 02/12/2017 12:16 PM EDT [facility] LABORATORY - 02/12/2017 12:16 PM EDT Specimen requisition ordered. ??Separate Pathology report to follow Dion Barlow MD PATHOLOGY/[place] [address] * Specimen to Pathology (surgical or derm) (02/12/2017 12:16 PM EDT) AP Specimen 02/12/2017 12:1 6 PM EDT 02/12/2017 12:16 PM EDT [facility] LABORATORY - 02/12/2017 12:16 PM EDT Specimen requisition ordered. ??Separate Pathology report to follow L Karthik Barlow MD PATHOLOGY/CYTOLOGY Ozzie [facility] [place] [address] * Surgical Pathology Report (02/12/2017 12:15 PM EDT) Final Diagnosis [id number] ?Location: 4T; EA07; A The signing pathologist [...] ing: (T2) ??ejr 02/13/2017 4:23 PM EDT [facility] GI Biopsy 02/12/2017 12:1 5 PM EDT 02/12/2017 12:15 PM EDT GI Biopsy 02/12/2017 12:1 5 PM EDT 02/12/2017 12:15 PM EDT GI Biopsy 02/12/2017 12:1 5 PM EDT 02/12/2017 12:15 PM EDT GI Biopsy 02/12/2017 12:1 5 PM EDT 02/12/2017 12:15 PM EDT L Karthik Barlow MD PATHOLOGY/CYTOLOGY O RDERAOMAR Performing Organization Address City/State/[facility] Co de Phone Number [facility] [place] [address] * COLONOSCOPY (02/12/2017 11:40 AM EDT) COLONOSCOPY [facility] Endoscopy ___ Procedure Date: 02/12/2017 11:40 AM ? Patient Name: Brian Rodriguez ? Date of : 1950 ? Age: 66 ? Order #: [id number] ? Instrument Name: [id number] ? ___ Procedure: ? Colonoscopy Indications: ? High risk colon cancer surveillance: ? Ulcerative colitis Patient Profile: ? This is a 66 year old male. This ? patient has left-sided ulcerative ? colitis on sulfasalazine and ? Cortifoam and is experiencing mild ? symptoms. Providers: ? Davina Barlow MD, Vandana Love ? RONY Mckeon, Sonal [facility], ? Assistant Pastry Chef Referring MD: ?Maximilian Fall MD Medicines: ? [...] preparation was evaluated using ? the BBPS ([place] Bowel Preparation ? Scale) with scores of: [...] by the sedation RN. ? _ L. Karhtik Barlow MD 02/12/2017 12:30:33 PM Number of Addenda: 0 Note Initiated On: 02/12/2017 11:40 AM PROVATION 02/12/2017 11:4 0 AM EDT Maximilian Fall MD GENERAL SURGICAL ORD ERABLES Performing Organization Address City/[facility]/ZIP Co de Phone Number PROVATION * POCT Fingerstick Glucose (02/12/2017 10:30 AM EDT) Glucose, POC 132 60 - 199 mg/dl 02/12/2017 10:3 0 AM EDT Dion Barlow MD POINT OF CARE TEST O RDERABLES * POCT Glucose (02/12/2017 10:29 AM EDT) Glucose, POC 132 65 - 199 mg/dL [facility] Comment: Supplemental ranges: <140 mg/dL before meals <180 mg/dL all other times of the day Blood specimen (specimen) 02/12/2017 10:29 AM EDT 02/12/2017 10:29 AM EDT Dion Barlow MD POINT OF CARE TEST O RDERAOMAR Performing Organization Address City/[facility]/ZIP Co de Phone Number [facility] [place] [address] documented in this encounter Visit Diagnoses Not [...] Vandana Mckeon RN)[phone] (Given - Provider: Vandana Mkceon RN)1151 (Given - Provider: Vandana Mckeon RN)1154 [...] RN) documented in this encounter Care Teams Manufacturing Development Engineer Relationship Specialty Start Date End Date Maximilian Fall MD [address] [place] [address] PCP - General 10/01/11 02/13/21 documented as of this encounter
--- OUTSIDE RECORDS SUMMARY | 2024-06-29 23:35 | XMS_ITS | Encounter Summary ---
Author Organization [facility] [place] [address] Care Team Providers Care Ob/Gyn Name Role Phone Maximilian Fall MD Primary Care Provider [phone] Reason for Visit * Reason Comments Follow-up Encounter Details Date Type Department Care Team (Late st Contact Info) Description 05/16/2016 10:30 AM EDT Office [place] [address] Dion Barlow MD [facility] [place] [address] Other ulcerative colitis with complication Social History [...] Overview Note: ?? Colonoscopy 04/08/10 (Dr. Gomes [facility]) - inflammation only within the rectum and sigmoid; extent of the exam was to the hepatic flexure; biopsies proximal to the sigmoid nl ?? [place]/11 [place] mildly active [...] months. 10 min of this 15 min [id number] visit was spent counseling the patient in the issues outlined above. Davina Barlow MD [employer] Skinnermanufacturing planner Section of Gastroenterology [place] [address] documented in this encounter Plan of Treatment Upcoming Encounters Date Type Department Care Team (Late st Contact Info) Description 07/01/2024 Hospital Encounter Heart and Vascular Unit Level 3 [place] [address] Bishop Godinez MD [facility] [place] [address] 08/15/2024 9:00 AM EDT Office Visit [place] [address] Dion Barlow MD [facility] [place] [address] 09/01/2024 11:20 AM EDT Office Visit Dermatology at [place] [address] [place] [address] Gómez Mercer MD [facility] [place] [address] 09/21/2024 2:45 PM EDT Office Visit Pain and Spine Center at [place] [phone] Trung Hoyos MD [facility] [address] documented as of this encounter Visit Diagnoses Diagnosis Other ulcerative colitis with complication documented in this encounter Care Teams Ob/Gyn Relationship Specialty Start Date End Date Maximilian Fall MD [address] [place] [address] PCP - General 10/01/11 02/13/21 documented as of this encounter
--- OUTSIDE RECORDS SUMMARY | 2024-06-29 23:35 | XMS_ITS | Encounter Summary ---
Author Organization [facility] [place] [address] Care Team Providers Care Set Up Mechanic Heading Machines Name Role Phone Maximilian Fall MD Primary Care Provider [phone] Encounter Details Date Type Department Care Team (Late st Contact Info) Description 11/08/2015 Orders [place] [address] Marcelle Weinberg, CROP SUPERVISOR [facility] [place] [address] Urinary tract infection without hematuria, site unspecified [...] this encounter Progress Notes * Marcelle Weinberg, CROP SUPERVISOR - 11/08/2015 5:53 PM EST I spoke [...] UA Latest Range: Clear Hazy (A) Spec [place] UA Latest Range: 1.002-1.030 1.020 pH UA [...] Vascular Unit Level 3 Wing B at [place] [phone] Bishop Godinez MD [facility] [place] [address] 08/15/2024 9:00 AM EDT Office Visit [place] [address] Dion Barlow MD [facility] [place] [address] 09/01/2024 11:20 AM EDT Office Visit Dermatology at [address] [phone] Gómez Mercer MD [facility] [place] [address] 09/21/2024 2:45 PM EDT Office Visit [facility] [place] [address] Trung Hoyos MD [facility] [place] [address] documented as of this encounter Visit Diagnoses Diagnosis Urinary tract infection without hematuria, site unspecified documented in this encounter Care Teams Set Up Mechanic Heading Machines Relationship Specialty Start Date End Date Maximilian Fall MD [address] [place] [address] PCP - General 10/01/11 02/13/21 documented as of this encounter
--- OUTSIDE RECORDS SUMMARY | 2024-06-29 23:35 | XMS_ITS | Encounter Summary ---
Author Organization [facility] [place] [address] Care Team Providers Care Command Post Craftsman Name Role Phone Maximilian Fall MD Primary Care Provider Encounter Details Date Type Department Care Team (Late st Contact Info) Description 11/05/2015 Telephone [place] [phone] Bethany Trivedi RN Social History Tobacco Use [...] Vascular Unit Level [place] [address] Bishop Godinez MD [facility] [place] [address] 08/15/2024 9:00 AM EDT Office Visit Gastroenterology at [place] [phone] Dion Barlow MD [facility] [place] [address] 09/01/2024 11:20 AM EDT Office Visit Dermatology at [address] [phone] Gómez Mercer MD [facility] DR EDDIE [place] [address] 09/21/2024 2:45 PM EDT Office Visit [facility] [place] [address] Trung Hoyos MD [facility] [place] [place] [address] documented as of this encounter Results * (ABNORMAL) Sedimentation rate (11/06/2015 10:24 AM EST) Sedimentation Rate Automated 22(H) 0 - 15 mm/hr [employer] [employer] Blood specimen (specimen) 11/06/2015 10:24 AM EST 11/06/2015 10:28 AM EST Narrative Resulting Agency Comment Spec In Lab Dion Barlow MD HEMATOLOGY ORDERABLE S [employer] * (ABNORMAL) Comprehensive metabolic panel (non-fasting) (11/06/2015 10:24 AM EST) [facility] Glucose 81 65 - 199 mg/dL CERNER MILLENNIUM Comment:Diabetes: >=200 mg/d L plus symptoms Blood Urea Nitrogen 14 10 - 20 mg/dL CERNER MILLENNIUM Creatinine 1.15 0.80 - 1.50 mg/dL CERNER MILLENNIUM Comment: Please note that the pediatric reference intervals supplied above were not validated at [facility]. Results from pediatric patients should be interpreted [...] the following links into your internet browser. [email or web address] Blood specimen (specimen) 11/06/2015 10:24 AM EST 11/06/2015 10:28 AM EST Narrative Resulting Agency Comment Spec In Lab L Karthik Barlow MD CHEMISTRY ORDERABLES Performing Organization Address [facility] de Phone Number [facility] * High Sensitivity CRP (11/06/2015 10:24 AM EST) C-Reactive Protein High Sensitivity 7.9 mg/L [facility] Comment: Interpretations: 1) For accurate cardiac risk [...] Barlow MD CHEMISTRY ORDERABLES Performing Organization Address [facility] Phone Number DURGA FREDERICK documented in this encounter Visit Diagnoses Diagnosis Ulcerative colitis, without complications Diarrhea documented in this encounter Care Teams Command Post Craftsman Relationship Specialty Start Date End Date Maximilian Fall MD [address] [place] [address] [address] [place] [address] PCP - General 10/01/11 02/13/21 documented as of this encounter
--- OUTSIDE RECORDS SUMMARY | 2024-06-29 23:35 | XMS_ITS | Encounter Summary ---
Author Organization [facility] [place] [address] Care Team Providers Care Clay Modeler Name Role Phone Maximilian Fall MD Primary Care Provider [phone] Encounter Details Date Type Department Care Team (Latest Contact Info) Description 11/06/2015 10:15 AM EST Laboratory Appointment Lab [address] [place] [phone] Ulcerative colitis, without complications; Diarrhea; Pain in [...] encounter Miscellaneous Notes * Addendum Note - Belkis Beltrán - 11/06/2015 2:16 PM ESTAddended by: BELKIS BELTRÁN on: 11/06/2015 02:16 PM Modules accepted: Orders documented in this encounter Plan of Treatment Upcoming Encounters Date Type Department Care Team (Late st Contact Info) Description 07/01/2024 Hospital Encounter Heart and Vascular Unit Level 3 [place] [address] Bishop Godinez MD [facility] [place] [address] 08/15/2024 9:00 AM EDT Office Visit [place] [address] Dion Barlow MD [facility] [place] [address] 09/01/2024 11:20 AM EDT Office Visit Dermatology at [place] [address] [place] [phone] Gómez Mercer MD [facility] [place] [address] 09/21/2024 2:45 PM EDT Office Visit [facility] [place] [phone] Trung Hoyos MD [facility] [place] [address] documented as of this encounter Procedures Procedure Name Priority Date/Time Associated Diagnosis Comments C. DIFFICILE SCREEN Routine 11/06/2015 2 :30 PM EST Pain in right hip Bilateral low back pain, with sciatica presence unspecified Abdominal pain, unspecified abdominal location Chronic ulcerative enterocolitis, unspecified complication STOOL CULTURE SCREEN ([facility]) Routine 11/06/2015 1:49 PM EST [...] ulcerative enterocolitis, unspecified complication CRYPTOSPORIDIUM OOCYST ANTIGEN ([facility]/CG[facility]/APD) Routine 11/06/2015 1:09 PM EST Pain in right hip Bilateral low back pain, with sciatica presence unspecified Abdominal pain, unspecified abdominal location Chronic ulcerative enterocolitis, unspecified complication GIARDIA/CRYPTOSPORIDIUM ANTIGENS ([facility]/CG[facility]/APD/NLH) Routine 11/06/2015 1:09 PM EST Pain in right hip Bilateral low back pain, with sciatica presence unspecified Abdominal pain, unspecified abdominal location Chronic ulcerative enterocolitis, unspecified complication GIARDIA ANTIGEN ([facility]/APD/[facility]H) Routine 11/06/2015 1:09 PM EST Pain in [...] PM EST) C Diff Interp Negative Negative [facility] Stool specimen (specimen) 11/06/2015 2:30 PM EST 11/06/2015 2:30 PM EST Narrative Resulting Agency Comment Spec In Lab L Karthik Barlow MD MICROBIOLOGY - GENER AL ORDERABLES Performing Organization Address [facility] Phone Number [facility] * Shiga Toxin Detection (11/06/2015 1:49 PM EST) Pathologist [facility] Shiga Toxin Assay EIA Negative for Shiga Toxin 1 EIA Negative for Shiga Toxin 2 [facility] Stool specimen (specimen) 11/06/2015 1:49 PM EST 11/06/2015 2:33 PM EST Narrative Resulting Agency Comment Spec In Lab L Karthik Barlow MD MICROBIOLOGY - GENER AL ORDERABLES Performing Organization Address [facility] Phone Number [facility] * Campylobacter Antigen (11/06/2015 1:49 PM EST) Pathologist [facility] Campylobacter Ag Immunoassay Negative for Campylobacter Antigen [facility] Stool specimen (specimen) 11/06/2015 1:49 PM EST 11/06/2015 2:33 PM EST Narrative Resulting Agency Comment Spec In Lab L Karthik Barlow MD MICROBIOLOGY - GENER AL ORDERABLES Performing Organization Address [facility] de Phone Number [facility] * Stool culture (11/06/2015 1:49 PM EST) Stool Culture No enteric pathogens isolated [facility] Stool specimen (specimen) 11/06/2015 1:49 PM EST 11/06/2015 2:33 PM EST Narrative Resulting Agency Comment Spec In Lab L Karthik Barlow MD MICROBIOLOGY - GENER AL ORDERABLES Performing Organization Address [facility] Phone Number [facility] * Cryptosporidium Oocyst Antigen (11/06/2015 1:09 PM EST) Cryptosporidium Antigen Negative Negative [facility] Stool specimen (specimen) 11/06/2015 1:09 PM EST 11/06/2015 2:28 PM EST Narrative Resulting Agency Comment Spec In Lab L Karthik Barlow MD MICROBIOLOGY - GENER AL ORDERABLES Performing Organization Address [facility] Phone Number [facility] * Giardia antigen (11/06/2015 1:09 PM EST) Giardia Antigen Negative Negative [facility] Comment:Examination for othe r intestinal parasites requires foreign travel history. Stool specimen (specimen) 11/06/2015 1:09 PM EST 11/06/2015 2:28 PM EST Narrative Resulting Agency Comment Spec In Lab L Karthik Balrow MD MICROBIOLOGY - GENER AL ORDERABLES Performing Organization Address [facility] Phone Number [facility] * (ABNORMAL) Urine culture (11/06/2015 1:00 PM EST) Urine Culture 50,000-99,000 cfu/ml Escherichia coli(A) [facility] Organism Escherichia coli(A) [facility] Urine specimen obtained by clean catch [...] Sensitive L Karthik Barlow MD MICROBIOLOGY - GENER AL ORDERABLES [facility]ERN[facility] MILLENNIUM * (ABNORMAL) Urinalysis [...] Urine Dipstick Hazy(A) Clear [facility]ERN[facility] MILLENNIUM Specific [place] Urine Automated 1.020 1.002 - 1.030 CERNER [...] URINE ORDERABLES [facility]ENNI[facility] * Differential, Automated (11/06/2015 10:24 [...] L Karthik Barlow MD HEMATOLOGY ORDERABLE S CERGIOVANNI ORDOÑEZENNIUM * (ABNORMAL) Hemogram (11/06/2015 10:24 AM EST) [...] Platelet Volume 11.3 9.0 - 12.0 fL [facility] MILLENNI[facility] Blood specimen (specimen) 11/06/2015 10:24 AM EST 11/06/2015 10:28 AM EST Narrative Resulting Agency Comment Spec In Lab L Karthik Barlow MD HEMATOLOGY ORDERABLE S Performing Organization Address [facility] Co de Phone Number CERGIOVANNI COLBERTIUM * (ABNORMAL) Sedimentation rate (11/06/2015 10:24 AM EST) Sedimentation Rate Automated 22(H) 0 - 15 mm/hr [facility] MILLENNIUM Blood specimen (specimen) 11/06/2015 10:24 AM EST 11/06/2015 10:28 AM EST Narrative Resulting Agency Comment Spec In Lab L Karthik Barlow MD HEMATOLOGY ORDERABLE S CERNER MILLENNIUM * (ABNORMAL) Comprehensive metabolic panel (non-fasting) (11/06/2015 10:24 AM EST) [facility] [address] Glucose 81 65 - 199 mg/dL [facility] MILLENNIUM Comment:Diabetes: >=200 mg/d L plus symptoms Blood Urea Nitrogen 14 10 - 20 mg/dL [facility]ERN[facility] MILLENNIUM Creatinine 1.15 0.80 - 1.50 mg/dL [facility] Comment: Please note that the pediatric reference intervals supplied above were not validated at [facility]. Results from pediatric patients should [...] the following links into your internet browser. [email or web address] Blood specimen (specimen) 11/06/2015 10:24 AM EST 11/06/2015 10:28 AM EST Narrative Resulting Agency Comment Spec In Lab L Karthik Barlow MD CHEMISTRY ORDERABLES Performing Organization Address [facility] de Phone Number [facility] * High Sensitivity CRP (11/06/2015 10:24 AM EST) C-Reactive Protein High Sensitivity 7.9 mg/L [facility] Comment: Interpretations: 1) For accurate cardiac [...] Comment Spec In Lab Dion Barlow MD CHEMISTRY ORDERABLES Performing Organization Address [facility] de Phone Number DUR[facility] FREDERICK documented in this encounter Visit Diagnoses Diagnosis Ulcerative colitis, without complications Diarrhea Pain in right hip Pain in joint, pelvic region and thigh Bilateral low back pain, with sciatica presence unspecified Abdominal pain, unspecified abdominal location Chronic ulcerative enterocolitis, unspecified complication documented in this encounter Care Teams Clay Modeler Relationship Specialty Start Date End Date Maximilian Fall MD [address] [facility] [place] [address] PCP - General 10/01/11 02/13/21 documented as of this encounter
--- OUTSIDE RECORDS SUMMARY | 2024-06-29 23:35 | XMS_ITS | Encounter Summary ---
Author Organization [facility] [place] [address] Care Team Providers Care Athletic Scout Name Role Phone Maximilian Fall MD Primary Care Provider [phone] Encounter Details Date Type Department Care Team (Late st Contact Info) Description 07/07/2016 Telephone [place] [phone] Bethany Trivedi RN Social History Tobacco Use [...] Vascular Unit Level 3 Wing B at [place] [phone] Bishop Godinez MD [facility] [place] [address] 08/15/2024 9:00 AM EDT Office Visit Gastroenterology at [place] [phone] Dion Barlow MD [facility] [place] [address] 09/01/2024 11:20 AM EDT Office Visit Dermatology at [address] [phone] Gómez Mercer MD [facility] DR EDDIE [place] [address] 09/21/2024 2:45 PM EDT Office Visit Pain and Spine Center at [place] [phone] Trung Hoyos MD [facility] [address] documented as of this encounter Results * C. Difficile Screen (07/18/2016 2:32 PM EDT) C Diff Interp Negative Negative [facility] Comment: C. diff ??Negative Clostridium difficile is not present in the specimen. If patient is having diarrhea suspected to be from an infectious cause, then Contact Precautions are still required. Stool specimen (specimen) 07/18/2016 2:32 PM EDT 07/18/2016 2:32 PM EDT Narrative Resulting Agency Comment Spec In Lab L Karthik Barlow MD MICROBIOLOGY - GENER AL ORDERABLES Performing Organization Address [facility]/ZIP Co de Phone Number [facility] [place] [address] * (ABNORMAL) Sedimentation rate (07/14/2016 12:21 PM EDT) Sedimentation Rate Automated 17(H) 0 - 15 mm/hr [facility] Blood specimen (specimen) 07/14/2016 12:21 PM EDT 07/14/2016 12:29 PM EDT Narrative Resulting Agency Comment Spec In Lab L Karthik Barlow MD HEMATOLOGY ORDERABLE S Performing Organization Address [facility] Co de Phone Number [facility] [place] [address] * Comprehensive metabolic panel (non-fasting) (07/14/2016 12:21 PM EDT) Glucose 147 65 - 199 mg/dL [facility] Comment:Diabetes: >=200 mg/d L plus symptoms Blood Urea Nitrogen 17 10 - 20 mg/dL [facility] Creatinine 1.04 0.80 - 1.50 mg/dL [facility] Comment: Please note that the pediatric reference intervals supplied above were not validated at [facility]. Results from pediatric patients should be interpreted in conjunction to the patient's age, height and muscle mass. Sodium 140 135 - 145 mmol/L [facility] Potassium 4.6 3.5 - 5.0 mmol/L [facility] Comment: Please note: ??Patients with WBC >100,000 may have falsely elevated Potassium levels. ??For accurate Potassium quantification in these patients send serum separator tube (gold top) for subsequent determinations. ??Contact the Clinical Chemistry Laboratory if there are any questions. Chloride 102 98 - 107 mmol/L [facility] Carbon Dioxide 25 22 - 31 mmol/L [facility] Anion Gap 13 5 - 15 mmol/L [facility] Calcium 9.7 8.5 - 10.5 mg/dL [facility] Protein, Total 7.9 6.1 - 8.0 gm/dL [facility] Albumin 4.4 3.2 - 5.2 gm/dL [facility] Aspartate Aminotransferase 15 0 - 39 unit/L [facility] Alanine Aminotransferase 20 0 - 55 unit/L [facility] Alkaline Phosphatase 65 40 - 120 unit/L [facility] Bilirubin, Total 0.4 0.2 - 1.3 mg/dL [facility] Bilirubin, Direct 0.1 0.0 - 0.3 mg/dL [facility] Est Glomerular Filtration Rate >60 >=60 [facility] Comment: This estimated GFR (eGFR) [...] the following links into your internet browser. [email or web address] Blood specimen (specimen) 07/14/2016 12:21 PM EDT 07/14/2016 12:29 PM EDT Narrative Resulting Agency Comment Spec In Lab L Karthik Barlow MD CHEMISTRY ORDERABLES [facility] [place] [address] * High Sensitivity CRP (07/14/2016 12:21 PM EDT) C-Reactive Protein High Sensitivity 4.8 mg/L [facility] Comment: Interpretations: 1) For accurate cardiac [...] Lab L Karthik Barlow MD CHEMISTRY ORDERABLES [facility] [place] [address] documented in this encounter Visit Diagnoses Diagnosis Chronic ulcerative enterocolitis, unspecified complication 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
--- OUTSIDE RECORDS SUMMARY | 2024-06-29 23:35 | XMS_ITS | Encounter Summary ---
Author Organization [facility] [place] [address] Care Team Providers Care Ship Washer Name Role Phone Maximilian Fall MD Primary Care Provider [phone] Encounter Details Date Type Department Care Team (Late st Contact Info) Description 09/21/2015 Telephone [place] [address] Marcelle Weinberg, DIRECTOR OF ENROLLMENT [facility] [place] [address] Social History Tobacco Use Types Packs/Day Years [...] Vascular Unit Level 3 [place] [address] Bishop Godinez MD [facility] [place] [address] 08/15/2024 9:00 AM EDT Office Visit [place] [address] Dion Barlow MD [facility] [place] [address] 09/01/2024 11:20 AM EDT Office Visit Dermatology at [address] [phone] Gómez Mercer MD [facility] DR EDDIE [place] [address] 09/21/2024 2:45 PM EDT Office Visit [facility] [place] [address] Trung Hoyos MD [facility] [place] [address] documented as of this encounter Visit Diagnoses Not on filedocumented in this encounter Care Teams Ship Washer Relationship Specialty Start Date End Date Maximilian Fall MD [address] [place] [address] PCP - General 10/01/11 02/13/21 documented as of this encounter
--- OUTSIDE RECORDS SUMMARY | 2024-06-29 23:35 | XMS_ITS | Encounter Summary ---
Author Organization [facility] [place] [address] Care Team Providers Care Engineer Byproduct Name Role Phone Maximilian Fall MD Primary Care Provider [phone] Encounter Details Date Type Department Care Team (Late st Contact Info) Description 11/06/2015 Orders [place] [address] Marcelle Weinberg APRN [facility] [place] [address] Ulcerative colitis without complications Social History Tobacco [...] Vascular Unit Level 3 [place] [phone] Bishop Godinez MD [facility] [place] [address] 08/15/2024 9:00 AM EDT Office [place] [phone] Dion Barlow MD [facility] [place] [address] 09/01/2024 11:20 AM EDT Office Visit Dermatology at [facility] [address] [place] [phone] Gómez Mercer MD [facility] [place] [address] 09/21/2024 2:45 PM EDT Office Visit Pain and Spine Center at [place] [phone] Trung Hoyos MD [facility] [place] [address] documented as of this encounter Visit Diagnoses Diagnosis Ulcerative colitis without complications Ulcerative colitis, unspecified documented in this encounter Care Teams Engineer Byproduct Relationship Specialty Start Date End Date Maximilian Fall MD [address] [place] [address] PCP - General 10/01/11 02/13/21 documented as of this encounter
--- OUTSIDE RECORDS SUMMARY | 2024-06-29 23:35 | XMS_ITS | Encounter Summary ---
Author Organization [facility] [place] [address] Care Team Providers Care Adjunct Psychology Instructor Name Role Phone Maximilian Fall MD Primary Care Provider Reason for Referral * Diagnostic Test (Routine) - Closed Specialty Diagnoses / Procedures Referred By Contac t Referred To Contact Radiology Diagnoses Postoperative wound abscess, initial encounter Procedures CT Retroperitoneal Abscess Drain Minnie Johnson MD [facility] [place] [address] [facility] [place] [address] Referral ID Status Reason Start Date Expiration Date V isits Requested Visits Authorized [id number] Closed Specialty Service Requested 03/22/2016 03/22/2017 1 1 Reason for Visit * Diagnostic Test (Routine) - Closed Specialty Diagnoses / Procedures Referred By Contac t Referred To Contact Radiology Diagnoses Postoperative wound abscess, initial encounter Procedures CT Retroperitoneal Abscess Drain Minnie Johnson MD [facility] [place] [address] [facility] [place] [address] Referral ID Status Reason Start Date Expiration Date V isits Requested Visits Authorized [id number] Closed Specialty Service Requested 03/22/2016 03/22/2017 1 1 Encounter Details Date Type Department Care Team (Latest Contact Info) Description 03/22/2016 10:40 AM EDT - 03/22/2016 11:59 PM EDT Hospital [place] [address] Shireen Hurtado MD [facility] [place] [address] Postoperative wound abscess, initial encounter Discharge Disposition: [...] is during regular office hours, please call [phone]. If it is after regular office hours, or on weekends or holidays, please call [phone] and ask to speak to the Coverage Analyst head of store operations for Interventional Radiology. You have received medication [...] pain several days post-op. He presented to [facility] ED and underwent a CT scan with findings consistent with RLQ abscess. We have been consulted for CT guided abscess drain placement. The patient has been admitted to [facility] and will be transferred back to [facility] following the procedure. Addendum: The patient's history [...] visible) Minnie Johnson MD Radiology, PGY-2 Pager [phone] * Danyell Doyle RN - 03/22/2016 10:29 AM EDT [facility] DATABASE Name: NAYA RODRIGUEZ Date of : 1950 AGE 65 y.o. Address: [address] [place] [phone] (home) Mobile: Telephone Information: Referring Provider: Minnie [...] COLONOSCOPY, DIAGNOSTIC performed by Dion OSULLIVAN at [facility] ??? Pro sigmoidoscopy, diagnostic 03/16/2012 FLEXIBLE SIGMOIDOSCOPY performed by YUDI MALLOY at [facility] ??? Upper gi endoscopy, exam 10/01/2012 UPPER GI ENDOSCOPY performed by Dion OSULLIVAN at [facility] ??? Pro colonoscopy, diagnostic 07/13/2014 COLONOSCOPY, DIAGNOSTIC performed by Dion Osullivan MD at [facility] Date/Procedure Med's given/comments No previous found [...] CT-guided RLQ drainage catheter placement (acc # [id number]) Indication : 65 y.o. male with PMHx significant for asthma, diabetes, and ulcerative colitis who isstatus post laparoscopic appendectomy on 03/13/2016 who noted RLQ pain several days post-op. He presented to [facility] ED and underwent a CT scan with findings consistent with RLQ abscess. We have been consulted for CT guided abscess drain placement. The patient has beenadmitted to [facility] and will be transferred back to [facility] following the procedure. . Technique: After discussing [...] Vascular Unit Level 3 [place] [address] Bishop Godinez MD [facility] [place] [address] 08/15/2024 9:00 AM EDT Office Visit [place] [address] Dion Osullivan MD [facility] [place] [address] 09/01/2024 11:20 AM EDT Office Visit Dermatology at [facility] [address] [place] [address] Gómez Mercer MD [facility] DR [place] [address] 09/21/2024 2:45 PM EDT Office Visit Pain [place] [phone] Trung Hoyos MD [facility] [place] [address] documented as of this encounter Procedures Procedure [...] CT-guided RLQ?? drainage catheter placement (ACC # [id number]) Indication : 65 y.o. male with PMHx significant for asthma, diabetes, and ulcerative colitis who is status post laparoscopic appendectomy on 03/13/2016 who noted RLQ pain several days post-op. He presented to [facility] ED and underwent a CT scan with findings consistent with RLQ abscess. We have been consulted for CT guided abscess drain placement. The patient has been admitted to [facility] and will be transferred back to [facility] following the procedure. Technique: After discussing risks [...] with 5 cc saline BID. Resident/Fellow:?? Minnie oJhnson MD I, Dr. Hurtado, performed the procedure. EBL: 0 5 cc 1% lidocaine administered SQ. Shireen Hurtado MD IMG CT ORDERABLES * Anaerobic Culture (03/22/2016 10:54 AM EDT) Anaerobic Culture No anaerobic organisms isolated [facility] Specimen from abscess (specimen) [place] / Unknown 03/22/2016 10:54 AM EDT 03/22/2016 12:52 PM EDT Comment:RLQ PAIN SEVERAL DAY S POST-OP. HE PRESENTED TO [facility] ED AND UNDERWENT A CT SCAN WITH FINDINGS CONSISTENT WITH RLQ ABSCESS. S/P APPY. Narrative Resulting Agency Comment Spec In Lab Shireen Hurtado MD MICROBIOLOGY - GENER AL ORDERABLES [facility] [place] [address] * (ABNORMAL) Wound Aspirate/Abscess Culture (03/22/2016 10:54 AM EDT) Abscess/Wound Aspirate Culture Many Escherichia coli(A) [facility] Gram Stain Many White Blood Cells seen Many Gram Negative Rods seen (A) [facility] Organism Escherichia coli(A) [facility] Organism Gram Negative Rods(A) [facility] Specimen from abscess (specimen) [place] / Unknown 03/22/2016 10:54 AM EDT 03/22/2016 12:52 PM EDT Comment:RLQ PAIN SEVERAL DAY S POST-OP. HE PRESENTED TO [facility] ED AND UNDERWENT A CT SCAN [...] Hurtado MD MICROBIOLOGY - [place] [address] documented in this encounter Visit Diagnoses Diagnosis Postoperative wound abscess, initial encounter documented in this encounter Administered Medications Inactive Administered Medications - up to 3 most recent administrations Medication Order MAR Action Action Date Dose Rate Site fentaNYL 50 mcg/mL multi-dose injection 25-50 mcg, Intravenous, EVERY 5 MIN PRN, Starting on 4/30/16 at 1126, Until 03/22/16 at 1226, Pain, [...] mL/hr documented in this encounter Care Teams Adjunct Psychology Instructor Relationship Specialty Start Date End Date Maximilian Fall MD [address] [place] [address] PCP - General 10/01/11 02/13/21 documented as of this encounter
--- OUTSIDE RECORDS SUMMARY | 2024-06-29 23:35 | XMS_ITS | Encounter Summary ---
Author Organization [facility] [place] [address] Care Team Providers Care Crotch Piece Baster Name Role Phone Maximilian Fall MD Primary Care Provider [phone] Reason for Visit * Reason Onset Date Comments Medication Refill 02/18/2017 Encounter Details Date Type Department Care Team (Late st Contact Info) Description 02/18/2017 [place] [address] Bethany Trivedi, RONY Pain in right hip; [...] Vascular Unit Level 3 [place] [address] Bishop Godinez MD [facility] [place] [address] 08/15/2024 9:00 AM EDT Office [place] [address] Dion Barlow MD [facility] [address] 09/01/2024 11:20 AM EDT Office Visit Dermatology at [facility] [address] [place] [address] Gómez Mercer MD [facility] DR [place] [address] 09/21/2024 2:45 PM EDT Office Visit Pain and Spine Center at [facility] [place] [phone] Trung Hoyos MD [facility] [place] [address] documented as of this encounter Visit Diagnoses Diagnosis Pain in right hip Pain in joint, pelvic region and thigh Chronic ulcerative enterocolitis, unspecified complication documented in this encounter Care Teams Crotch Piece Baster Relationship Specialty Start Date End Date Maximilian Fall MD [address] [place] [address] PCP - General 10/01/11 02/13/21 documented as of this encounter
--- OUTSIDE RECORDS SUMMARY | 2024-06-29 23:35 | XMS_ITS | Encounter Summary ---
Author Organization [facility] [place] [address] Care Team Providers Care Second Hand Paper Machine Name Role Phone Maximilian Fall MD Primary Care Provider [phone] Encounter Details Date Type Department Care Team (Late st Contact Info) Description 07/07/2016 Telephone [place] [phone] Bethany Trivedi RN Social History Tobacco Use [...] EDT Cortifoam approved 07/07/16 until furhter notice [place] id# [id number] * Telephone Encounter - Bethany Trivedi RN - 07/07/2016 12:10 PM EDT Formulary exception form sent in for Cortifoam enemas documented in this encounter Plan of Treatment Upcoming Encounters Date Type Department Care Team (Late st Contact Info) Description 07/01/2024 Hospital Encounter Heart and Vascular Unit Level 3 Wing B at [place] [phone] Bishop Godinez MD [facility] [place] [address] 08/15/2024 9:00 AM EDT Office [place] [address] Dion Barlow MD [facility] [place] [address] 09/01/2024 11:20 AM EDT Office Visit Dermatology at [address] [phone] Gómez Mercer MD [facility] DR [place] [address] 09/21/2024 2:45 PM EDT Office Visit Pain and Spine Center at [place] [phone] Trung Hoyos MD [facility] [place] [address] documented as of this encounter Visit Diagnoses Not on filedocumented in this encounter Care Teams Second Hand Paper Machine Relationship Specialty Start Date End Date Maximilian Fall MD [address] [place] [address] PCP - General 10/01/11 02/13/21 documented as of this encounter
--- OUTSIDE RECORDS SUMMARY | 2024-06-29 23:35 | XMS_ITS | Encounter Summary ---
Author Organization [facility] Address [facility] [place] [address] Care Team Providers Care Precision Machining Instructor Name Role Phone Maximilian Fall MD Primary Care Provider [phone] Encounter Details Date Type Department Care Team (Latest Contact Info) Description 11/06/2015 11:16 AM EST - 11/06/2015 11:17 AM [facility] Hospital Encounter XRay at [address] [place] [address] Dion Barlow MD [facility] [place] [address] Pain in right hip; Bilateral low back [...] Vascular Unit Level 3 [place] [address] Bishop Godinez MD [facility] [place] [address] 08/15/2024 9:00 AM EDT Office [place] [address] Dion Barlow MD [facility] [place] [address] 09/01/2024 11:20 AM EDT Office Visit Dermatology at [address] [place] [phone] Gómez Mercer MD [facility] DR [place] [address] 09/21/2024 2:45 PM EDT Office Visit Pain and Spine Center at [facility] [place] [address] Trung Hoyos MD [facility] [place] [address] documented as of this encounter Procedures Procedure [...] complication documented in this encounter Care Teams Precision Machining Instructor Relationship Specialty Start Date End Date Maximilian Fall MD [address] [place] [address] PCP - General 10/01/11 02/13/21 documented as of this encounter
--- OUTSIDE RECORDS SUMMARY | 2024-06-29 23:35 | XMS_ITS | Encounter Summary ---
Author Organization [facility] Address [facility] [place] [address] Care Team Providers Care Corner Bead Operator Name Role Phone Maximilian Fall MD Primary Care Provider [phone] Encounter Details Date Type Department Care Team (Latest Contact Info) Description 07/18/2016 2:18 PM EDT - 07/18/2016 11:59 PM EDT Hospital [place] [phone] Left sided colitis, unspecified complication; Chronic ulcerative [...] Vascular Unit Level 3 [place] [address] Bishop Godinez MD [facility] [place] [address] 08/15/2024 9:00 AM EDT Office [place] [phone] Dion Barlow MD [facility] [place] [address] 09/01/2024 11:20 AM EDT Office Visit Dermatology at [place] [address] [place] [phone] Gómez Mercer MD [facility] [place] [address] 09/21/2024 2:45 PM EDT Office Visit Pain and Spine Center at [facility] [place] [place] [address] Trung Hoyos MD [facility] [place] [address] documented as of this encounter Procedures Procedure Name Priority Date/Time Associated Diagnosis Comments CAMPYLOBACTER ANTIGEN Routine 07/18/2016 2:32 PM EDT Chronic ulcerative enterocolitis, unspecified complication Acute amebic dysentery C. DIFFICILE SCREEN Routine 07/18/2016 2 :32 PM EDT Chronic ulcerative enterocolitis, unspecified complication Acute amebic dysentery STOOL CULTURE SCREEN ([facility]/CGP/APD/[facility]H) Routine 07/18/2016 2:27 PM EDT Chronic ulcerative enterocolitis, unspecified complication Acute amebic dysentery CRYPTOSPORIDIUM OOCYST ANTIGEN ([facility]/CGP/APD) Routine 07/18/2016 2:27 PM EDT Left sided colitis, unspecified complication SHIGA TOXIN ASSAY Routine 07/18/2016 2:2 7 PM EDT Chronic ulcerative enterocolitis, unspecified complication Acute amebic dysentery GIARDIA/CRYPTOSPORIDIUM ANTIGENS ([facility]/CGP/APD/NLH) Routine 07/18/2016 2:27 PM EDT Left sided colitis, unspecified complication GIARDIA ANTIGEN ([facility]/CGP/APD/NLH) Routine 07/18/2016 2:27 PM EDT Left sided colitis, unspecified complication STOOL CULTURE Routine 07/18/2016 2:27 PM EDT Chronic ulcerative enterocolitis, unspecified complication Acute amebic dysentery documented in this encounter Results * Campylobacter Antigen (07/18/2016 2:32 PM EDT) Pathologist [facility] Campylobacter Ag Immunoassay Negative for Campylobacter Antigen [facility] Stool specimen (specimen) 07/18/2016 2:32 PM EDT 07/18/2016 2:32 PM EDT Narrative Resulting Agency Comment Spec In Lab L Karthik Barlow MD MICROBIOLOGY - GENER AL ORDERABLES Performing Organization Address [facility] Co de Phone Number [facility] [place] [address] * C. Difficile Screen (07/18/2016 2:32 PM [...] - GENER AL ORDERABLES Performing Organization Address [facility] Co de Phone Number [facility] [place] [address] * Shiga Toxin Detection (07/18/2016 2:27 PM EDT) Shiga Toxin Assay EIA Negative for Shiga Toxin 1 EIA Negative for Shiga Toxin 2 [facility] Stool specimen (specimen) 07/18/2016 2:27 PM EDT 07/18/2016 2:32 PM EDT Narrative Resulting Agency Comment Spec In Lab L Karthik Barlow MD MICROBIOLOGY - GENER AL ORDERABLES Performing Organization Address City/[facility] Co de Phone Number [facility] [place] [address] * Stool culture (07/18/2016 2:27 PM EDT) Stool Culture No enteric pathogens isolated [facility] Stool specimen (specimen) 07/18/2016 2:27 PM EDT 07/18/2016 2:32 PM EDT Narrative Resulting Agency Comment Spec In Lab L Karthik Barlow MD MICROBIOLOGY - GENER AL ORDERABLES Performing Organization Address City/[facility]/ZIP Co de Phone Number [facility] [place] [address] * Cryptosporidium Oocyst Antigen (07/18/2016 2:27 PM EDT) Cryptosporidium Antigen Negative Negative [facility] Stool specimen (specimen) 07/18/2016 2:27 PM EDT 07/18/2016 2:32 PM EDT Narrative Resulting Agency Comment Spec In Lab L Karthik Barlow MD MICROBIOLOGY - GENER AL ORDERABLES Performing Organization Address [facility] Co de Phone Number [facility] [place] [address] * Giardia antigen (07/18/2016 2:27 PM EDT) Giardia Antigen Negative Negative [facility] Comment:Examination for othe r intestinal parasites requires foreign travel history. Stool specimen (specimen) 07/18/2016 2:27 PM EDT 07/18/2016 2:32 PM EDT Narrative Resulting Agency Comment Spec In Lab L Karthik Barlow MD MICROBIOLOGY - GENER AL ORDERABLES Performing Organization Address [facility] Co de Phone Number [facility] [place] [address] documented in this encounter Visit Diagnoses Diagnosis Left sided colitis, unspecified complication Chronic ulcerative enterocolitis, unspecified complication Acute amebic dysentery Acute amebic dysentery without mention of abscess documented in this encounter Care Teams Corner Bead Operator Relationship Specialty Start Date End Date Maximilian Fall MD [address] [place] [address] PCP - General 10/01/11 02/13/21 documented as of this encounter
--- OUTSIDE RECORDS SUMMARY | 2024-06-29 23:35 | XMS_ITS | Encounter Summary ---
Author Organization [facility] Address [facility] [place] [address] Care Team Providers Care Shell Molder Name Role Phone Maximilian Fall MD Primary Care Provider [phone] Encounter Details Date Type Department Care Team (Late st Contact Info) Description 02/12/2017 11:15 AM EDT - 02/12/2017 12:00 PM EDT [place] [address] Dion Barlow MD [facility] [place] [address] COLONOSCOPY FLEXIBLE, WITH BX (WRVU 3.56) Social [...] - 02/12/2017 12:37 PM EDT Please call [phone] before 8pm with problems, questions or concerns, after 5pm call the Hospital at [phone] and ask to speak to the Control Engineer vocational nurse lvn and the molasses and caramel operator will contact that person for you. [...] sent through Care Everywhere. * COLONOSCOPY: POST-OP (HUNGARIAN) documented in this encounter Medications at Time [...] Vascular Unit Level 3 [place] [address] Bishop Godinez MD [facility] [place] [address] 08/15/2024 9:00 AM EDT Office [place] [address] Dion Barlow MD [facility] [place] [address] 09/01/2024 11:20 AM EDT Office Visit Dermatology at [facility] [address] [place] [address] Gómez Mercer MD [facility] DR EDD[place] [address] 09/21/2024 2:45 PM EDT Office Visit [facility] [place] [address] Trung Hoyos MD [facility] [place] [address] documented as of this encounter Procedures Procedure [...] PM EDT 02/12/2017 12:16 PM EDT Narrative [facility] - 02/12/2017 12:16 PM EDT Specimen requisition ordered. ??Separate Pathology report to follow L Karthik Barlow MD PATHOLOGY/[place] [address] * Specimen to Pathology (surgical or derm) (02/12/2017 12:16 PM EDT) AP Specimen 02/12/2017 12:1 6 PM EDT 02/12/2017 12:16 PM EDT Narrative [facility] - 02/12/2017 12:16 PM EDT Specimen requisition ordered. ??Separate Pathology report to follow L Karthik Barlow MD PATHOLOGY/[place] [address] * Specimen to Pathology (surgical or derm) (02/12/2017 12:16 PM EDT) AP Specimen 02/12/2017 12:1 6 PM EDT 02/12/2017 12:16 PM EDT Narrative [facility] - 02/12/2017 12:16 PM EDT Specimen requisition ordered. ??Separate Pathology report to follow Dion Barlow MD PATHOLOGY/[place] [address] * Specimen to Pathology (surgical or derm) (02/12/2017 12:16 PM EDT) AP Specimen 02/12/2017 12:1 6 PM EDT 02/12/2017 12:16 PM EDT Narrative [facility] - 02/12/2017 12:16 PM EDT Specimen requisition ordered. ??Separate Pathology report to follow L Karthik Barlow MD PATHOLOGY/CYTOLOGY O CEE [facility] [place] [address] * Surgical Pathology Report (02/12/2017 12:15 PM EDT) Final Diagnosis [id number] ?Location: 4T; EA07; A The signing pathologist [...] Electronically signed by: ??Mery HARVEY PhD, Sree oL Verified: ??02/13/2017 ?Pathologist DISCUSSION Active colitis was [...] ing: (T2) ??ejr 02/13/2017 4:23 PM EDT [facility] GI Biopsy 02/12/2017 12:1 5 PM EDT 02/12/2017 12:15 PM EDT GI Biopsy 02/12/2017 12:1 5 PM EDT 02/12/2017 12:15 PM EDT GI Biopsy 02/12/2017 12:1 5 PM EDT 02/12/2017 12:15 PM EDT GI Biopsy 02/12/2017 12:1 5 PM EDT 02/12/2017 12:15 PM EDT L Karthik Barlow MD PATHOLOGY/CYTOLOGY O CEE [facility] [place] [address] * COLONOSCOPY (02/12/2017 11:40 AM EDT) COLONOSCOPY [facility] Endoscopy ___ Procedure Date: 02/12/2017 11:40 AM ? Patient Name: Brian Rodriguez ? Date of : 1950 ? Age: 66 ? Order #: [id number] ? Instrument Name: [id number] ? ___ Procedure: ? Colonoscopy Indications: ? High risk colon cancer surveillance: ? Ulcerative colitis Patient Profile: ? This is a 66 year old male. This ? patient has left-sided ulcerative ? colitis on sulfasalazine and ? Cortifoam and is experiencing mild ? symptoms. Providers: ? Davina Barlow MD, Vandana Love ? Mike, RONY, Sonal [facility], ? Taker Off Hemp Fiber Referring MD: ?Maximilian Fall MD Medicines: ? [...] preparation was evaluated using ? the BBPS (Yeaddiss Bowel Preparation ? Scale) with scores of: [...] GENERAL SURGICAL ORD ERABLES Performing Organization Address [facility] Co de Phone Number PROVATION * POCT Fingerstick Glucose (02/12/2017 10:30 AM EDT) Glucose, POC 132 60 - 199 mg/dl 02/12/2017 10:3 0 AM EDT Dion Barlow MD POINT OF CARE TEST O RDERAOMAR * POCT Glucose (02/12/2017 10:29 AM EDT) Glucose, POC 132 65 - 199 mg/dL [facility] Comment: Supplemental ranges: <140 mg/dL before meals <180 mg/dL all other times of the day Blood specimen (specimen) 02/12/2017 10:29 AM EDT 02/12/2017 10:29 AM EDT Dion Barlow MD POINT OF CARE TEST O CEE Performing Organization Address [facility] Co de Phone Number [facility] [place] [address] documented in this encounter Visit Diagnoses Diagnosis [...] RN) documented in this encounter Care Teams Shell Molder Relationship Specialty Start Date End Date Maximilian Fall MD [address] [place] [address] PCP - General 10/01/11 02/13/21 documented as of this encounter
--- OUTSIDE RECORDS SUMMARY | 2024-06-29 23:35 | XMS_ITS | Encounter Summary ---
Author Organization [facility] Address [facility] [place] [address] Care Team Providers Care Leather Tanner Name Role Phone Maximilian Fall MD Primary Care Provider [phone] Encounter Details Date Type Department Care Team (Latest Contact Info) Description 11/06/2015 11:18 AM EST - 11/06/2015 11:59 PM [facility] Hospital Encounter XRay at [address] [place] [address] Dion Barlow MD [facility] [place] [address] Pain in right hip; Bilateral low back [...] Vascular Unit Level 3 [place] [address] Bishop Godinez MD [facility] [place] [address] 08/15/2024 9:00 AM EDT Office [place] [address] Dion Barlow MD [facility] [address] 09/01/2024 11:20 AM EDT Office Visit Dermatology at [facility] [address] [place] [address] Gómez Mercer MD [facility] DR [place] [address] 09/21/2024 2:45 PM EDT Office Visit Pain and Spine Center at [facility] [place] [address] Trung Hoyos MD [facility] [address] documented as of this encounter Procedures Procedure [...] complication documented in this encounter Care Teams Leather Tanner Relationship Specialty Start Date End Date Maximilian Fall MD [address] [place] [address] PCP - General 10/01/11 02/13/21 documented as of this encounter
--- OUTSIDE RECORDS SUMMARY | 2024-06-29 23:35 | XMS_ITS | Encounter Summary ---
Author Organization [facility] [place] [address] Care Team Providers Care International Student Advisor Name Role Phone Maximilian Fall MD Primary Care Provider [phone] Reason for Visit * Reason Comments Follow-up Encounter Details Date Type Department Care Team (Late st Contact Info) Description 12/04/2015 3:30 PM EST Office Visit [place] [address] Marcelle Weinberg MANAGER OF PHARMACY [facility] [place] [place] [address] Other ulcerative colitis Social History Tobacco Use [...] Overview Note: ?? Colonoscopy 04/08/10 (Dr. Gomes [facility]) - inflammation only within the rectum and sigmoid; extent of the exam was to the hepatic flexure; biopsies proximal to the sigmoid nl ?? [place] exam [place]11 [place] active colitis in the sigmoid colon [...] to move his bowels. Still formed stool. [place] better after defecation. Eating well. Weight stable. [...] COLONOSCOPY, DIAGNOSTIC performed by Dion OSULLIVAN at [facility] ENDOSCOPY ??? Pro sigmoidoscopy, diagnostic 03/16/2012 FLEXIBLE SIGMOIDOSCOPY performed by YUDI MALLOY at [facility] ENDOSCOPY ??? Upper gi endoscopy, exam 10/01/2012 UPPER GI ENDOSCOPY performed by Dion OSULLIVAN at [facility] ENDOSCOPY ??? Pro colonoscopy, diagnostic 07/13/2014 COLONOSCOPY, DIAGNOSTIC performed by Dion Osullivan MD at [facility] ENDOSCOPY History Social History ??? Marital [...] UA Latest Range: Clear Hazy (A) Spec [place] UA Latest Range: 1.002-1.030 1.020 pH UA [...] Vascular Unit Level 3 Wing B at [place] [phone] Bishop Godinez MD [facility] [place] [address] 08/15/2024 9:00 AM EDT Office Visit Gastroenterology at [place] [phone] Dion Osullivan MD [facility] [address] 09/01/2024 11:20 AM EDT Office Visit Dermatology at [address] [phone] Gómez Mercer MD [facility] DR [place] [address] 09/21/2024 2:45 PM EDT Office Visit Pain and Spine Center at [place] [phone] Trung Hoyos MD [facility] [place] [address] documented as of this encounter Visit Diagnoses Diagnosis Other ulcerative colitis documented in this encounter Care Teams International Student Advisor Relationship Specialty Start Date End Date Maximilian Fall MD [address] [place] [address] PCP - General 10/01/11 02/13/21 documented as of this encounter
--- OUTSIDE RECORDS SUMMARY | 2024-06-29 23:35 | XMS_ITS | Encounter Summary ---
Author Organization [facility] [place] [address] Care Team Providers Care Supervisor Component Assembler Name Role Phone Maximilian Fall MD Primary Care Provider [phone] Reason for Visit * Reason Onset Date Comments Medication Refill 03/12/2018 Encounter Details Date Type Department Care Team (Late st Contact Info) Description 03/12/2018 Refill [place] [address] Bethany Trivedi, RONY Pain in [...] Vascular Unit Level 3 [place] [address] Bishop Godinez MD [facility] [place] [address] 08/15/2024 9:00 AM EDT Office Visit [place] [address] Dion Barlow MD [facility] [place] [address] 09/01/2024 11:20 AM EDT Office Visit Dermatology at [facility] [address] [place] [address] Gómez Mercer MD [facility] DR EDDIE [place] [address] 09/21/2024 2:45 PM EDT Office Visit Pain and Spine Center at [facility] [place] [address] Trung Hoyos MD [facility] [place] [address] documented as of this encounter Visit Diagnoses Diagnosis Pain in right hip Pain in joint, pelvic region and thigh Chronic ulcerative enterocolitis, unspecified complication documented in this encounter Care Teams Supervisor Component Assembler Relationship Specialty Start Date End Date Maximilian Fall MD [address] [place] [address] PCP - General 10/01/11 02/13/21 documented as of this encounter
--- OUTSIDE RECORDS SUMMARY | 2024-06-29 23:35 | XMS_ITS | Encounter Summary ---
Author Organization [facility] [place] [address] Care Team Providers Care Budget Analyst Name Role Phone Maximilian Fall MD Primary Care Provider [phone] Encounter Details Date Type Department Care Team (Late st Contact Info) Description 03/26/2018 Telephone [place] [phone] Bethany Trivedi RN Social History Tobacco Use [...] difficulty getting Cortifoam because it is on rotor pilot back order. Has been diarrhea and bleeding [...] Vascular Unit Level 3 Wing B at [place] [phone] Bishop Godinez MD [facility] [place] [address] 08/15/2024 9:00 AM EDT Office Visit [place] [address] Dion Barlow MD [facility] [place] [address] 09/01/2024 11:20 AM EDT Office Visit Dermatology at [address] [phone] Gómez Mercer MD [facility] [place] [address] 09/21/2024 2:45 PM EDT Office Visit Pain and Spine Center at [place] [phone] Trung Hoyos MD [facility] [place] [address] documented as of this encounter Visit Diagnoses Not on filedocumented in this encounter Care Teams Budget Analyst Relationship Specialty Start Date End Date Maximilian Fall MD [address] [place] [address] PCP - General 10/01/11 02/13/21 documented as of this encounter
--- OUTSIDE RECORDS SUMMARY | 2024-06-29 23:35 | XMS_ITS | Encounter Summary ---
Author Organization [facility] [place] [address] Care Team Providers Care Site Planner Name Role Phone Maximilian Fall MD Primary Care Provider [phone] Reason for Visit * Reason Comments Follow-up Encounter Details Date Type Department Care Team (Late st Contact Info) Description 10/29/2017 10:30 AM EST Office [place] [address] Dion Barlow MD [facility] [place] [address] Left sided ulcerative colitis with complication Social [...] * Patient Instructions* Dion Barlow MD - 10/29/2017 10:30 AM EST # [...] Overview Note: ? Colonoscopy 04/08/10 (Dr. Gomes [facility]) - inflammation only within the rectum and sigmoid; extent of the exam was to the hepatic flexure; biopsies proximal to the sigmoid nl ?? [place] mildly active colitis in the sigmoid colon [...] months. 15 min of this 25 min nmha-ks-[id number] visit was spent counseling the patient in the issues outlined above. Davina Barlow MD Tenter Frame Back Tenderpolice specialist Section of Gastroenterology [place] [address] CC: Maximilian Fall MD [address] [place] [address] documented in this encounter Plan of Treatment Upcoming Encounters Date Type Department Care Team (Late st Contact Info) Description 07/01/2024 Hospital Encounter Heart and Vascular Unit Level 3 [place] [phone] Bishop Godinez MD [facility] [place] [address] 08/15/2024 9:00 AM EDT Office [place] [phone] Dion Barlow MD [facility] [place] [address] 09/01/2024 11:20 AM EDT Office Visit Dermatology at [facility] [address] [place] [address] Gómez Mercer MD [facility] DR [place] [address] 09/21/2024 2:45 PM EDT Office Visit Pain and Spine Center at [facility] [place] [address] Trung Hoyos MD [facility] [place] [address] documented as of this encounter Visit Diagnoses Diagnosis Left sided ulcerative colitis with complication documented in this encounter Care Teams Site Planner Relationship Specialty Start Date End Date Maximilian Fall MD [address] [place] [address] PCP - General 10/01/11 02/13/21 documented as of this encounter
--- OUTSIDE RECORDS SUMMARY | 2024-06-29 23:35 | XMS_ITS | Encounter Summary ---
Author Organization [facility] [place] [address] Care Team Providers Care Rail Car Painter/Sandblaster Name Role Phone Maximilian Fall MD Primary Care Provider [phone] Reason for Visit * Reason Comments Follow-up Encounter Details Date Type Department Care Team (Latest Contact Info) Description 11/10/2016 8:30 AM EST Office [place] [address] Dion Barlow MD [facility] [place] [address] Ulcerative rectosigmoiditis with rectal bleeding Social History [...] Overview Note: ?? Colonoscopy 04/08/10 (Dr. Gomes [facility]) - inflammation only within the rectum and sigmoid; extent of the exam was to the hepatic flexure; biopsies proximal to the sigmoid nl ?? Repeat exam [place]/27/11 [place] mildly active colitis in the sigmoid colon [...] could be done with Dr. Fall - tatiana due (by my records) 06/2017. # Follow-up with me at the time of colonoscopy and with Farideh Weinberg APRN in the clinic 6 months. 20 min of this 25 min pyhi-cq-[id number] visit was spent counseling the patient in the issues outlined above. Davina Barlow MD Wrapper Stitcherslitting machine operator Section of Gastroenterology [place] [address] documented in this encounter Plan of Treatment Upcoming Encounters Date Type Department Care Team (Late st Contact Info) Description 07/01/2024 Hospital Encounter Heart and Vascular Unit Level 3 [place] [address] Bishop Godinez MD [facility] [place] [address] 08/15/2024 9:00 AM EDT Office [place] [phone] Dion Barlow MD [facility] [place] [address] 09/01/2024 11:20 AM EDT Office Visit Dermatology at [address] [place] [address] Gómez Mercer MD [facility] DR [place] [address] 09/21/2024 2:45 PM EDT Office Visit Pain and Spine Center at [facility] [place] [address] Trung Hoyos MD [facility] [place] [address] Scheduled Orders Name Type Priority Associated Diagnoses Orde r Schedule COLONOSCOPY Procedures Routine Ulcerative rectosigmoiditis with rectal bleeding Ordered: 11/10/2016 documented as of this encounter Visit Diagnoses Diagnosis Ulcerative rectosigmoiditis with rectal bleeding documented in this encounter Care Teams Rail Car Painter/Sandblaster Relationship Specialty Start Date End Date Maximilian Fall MD [address] [place] [address] PCP - General 10/01/11 02/13/21 documented as of this encounter
--- OUTSIDE RECORDS SUMMARY | 2024-06-29 23:35 | XMS_ITS | Encounter Summary ---
Author Organization [facility] [place] [address] Care Team Providers Care Oracle Consultant Name Role Phone Maximilian Fall MD Primary Care Provider [phone] Reason for Visit * Reason Comments Follow-up Encounter Details Date Type Department Care Team (Late st Contact Info) Description 04/08/2016 1:30 PM EDT Office [place] [address] Marcelle Weinberg APRN [facility] [place] [address] Ulcerative chronic pancolitis, unspecified complication Social History [...] Overview Note: ?? Colonoscopy 04/08/10 (Dr. Gomes [facility]) - inflammation only within the rectum and [...] COLONOSCOPY, DIAGNOSTIC performed by Dion OSULLIVAN at [facility] ENDOSCOPY ??? Pro sigmoidoscopy, diagnostic 03/16/2012 FLEXIBLE SIGMOIDOSCOPY performed by YUDI MALLOY at [facility] ENDOSCOPY ??? Upper gi endoscopy, exam 10/01/2012 UPPER GI ENDOSCOPY performed by Dion OSULLIVAN at [facility] ??? Pro colonoscopy, diagnostic 07/13/2014 COLONOSCOPY, DIAGNOSTIC performed by Dion Osullivan MD at [facility] No family history on file. History [...] Vascular Unit Level 3 [place] [address] Bishop Godinez MD [facility] [place] [address] 08/15/2024 9:00 AM EDT Office [place] [address] Dion Osullivan MD [facility] GASTROENTEROLOGY [place], [place] [phone] 09/01/2024 11:20 AM EDT Office Visit Dermatology at [address] [place] [address] Gómez Mercer MD [facility] DR EDDIE SANCHEZ-DERMATOLOGY [place], [place] [address] 09/21/2024 2:45 PM EDT Office Visit [place] [address] Trung Hoyos MD [facility] [place] [address] documented as of this encounter Visit Diagnoses Diagnosis Ulcerative chronic pancolitis, unspecified complication documented in this encounter Care Teams Oracle Consultant Relationship Specialty Start Date End Date Maximilian Fall MD [address] [place] [address] PCP - General 10/01/11 02/13/21 documented as of this encounter
--- OUTSIDE RECORDS SUMMARY | 2024-06-29 23:35 | XMS_ITS | Encounter Summary ---
Author Organization [facility] [place] [address] Care Team Providers Care Crab Catcher Name Role Phone Maximilian Fall MD Primary Care Provider [phone] Reason for Visit * Reason Comments Follow-up Encounter Details Date Type Department Care Team (Late st Contact Info) Description 11/06/2015 11:00 AM EST Office [place] [address] Marcelle Weinberg APRN [facility] [place] [address] Chronic ulcerative enterocolitis, unspecified complication; Abdominal pain, [...] in this encounter Progress Notes * Marcelle Wienberg, NORMALIZER - 11/06/2015 10:28 AM EST Patient Active Problem List Diagnosis ??? Ulcerative colitis Overview Note: ?? Colonoscopy 04/08/10 (Dr. oGmes [facility]) - inflammation only within the rectum [...] COLONOSCOPY, DIAGNOSTIC performed by Dion OSULLIVAN at [facility] ENDOSCOPY ??? Pro sigmoidoscopy, diagnostic 03/16/2012 FLEXIBLE SIGMOIDOSCOPY performed by YUDI MALLOY at [facility] ENDOSCOPY ??? Upper gi endoscopy, exam 10/01/2012 UPPER GI ENDOSCOPY performed by Dion OSULLIVAN at [facility] ENDOSCOPY ??? Pro colonoscopy, diagnostic 07/13/2014 COLONOSCOPY, DIAGNOSTIC performed by Dion Osullivan MD at [facility] ENDOSCOPY Physical Exam Constitutional: He appears [...] Vascular Unit Level 3 [place] [address] Bishop Godinez MD [facility] [place] [address] 08/15/2024 9:00 AM EDT Office [place] [address] Dion Osullivan MD [facility] [place] [address] 09/01/2024 11:20 AM EDT Office Visit Dermatology at [facility] [address] [place] [address] Gómez Mercer MD [facility] [place] [address] 09/21/2024 2:45 PM EDT Office Visit [place] [address] Trung Hoyos MD [facility] [place] [address] documented as of this encounter Results * C. Difficile Screen (11/06/2015 2:30 PM EST) Pathologist [facility] C Diff Interp Negative Negative CERNER MILLENNIUM Stool specimen (specimen) 11/06/2015 2:30 PM EST 11/06/2015 2:30 PM EST Narrative Resulting Agency Comment Spec In Lab L Karthik Osullivan MD MICROBIOLOGY - GENER AL ORDERABLES [facility] * (ABNORMAL) Urinalysis with reflex Culture (11/06/2015 [...] Urine Dipstick Hazy(A) Clear CERNER MILLENNIUM Specific [place] Urine Automated 1.020 1.002 - 1.030 CERNER [...] Lab L Karthik Osullivan MD URINE ORDERABLES [facility] ORDOÑEZENNIUM * XR Abdomen Flat And Upright (11/06/2015 [...] complication documented in this encounter Care Teams Crab Catcher Relationship Specialty Start Date End Date Maximilian Fall MD [address] [place] [address] PCP - General 10/01/11 02/13/21 documented as of this encounter
--- OUTSIDE RECORDS SUMMARY | 2024-06-29 23:35 | XMS_ITS | Encounter Summary ---
Author Organization Formerly [facility] [place] [address] Care Team Providers Care Predatory Animal Trapper Name Role Phone Maximilian Fall MD Primary Care Provider [phone] Reason for Referral * Diagnostic Test (Routine) - Closed Specialty Diagnoses / Procedures Referred By Contwillard t Referred To Contact Radiology Diagnoses Postoperative wound abscess, initial encounter Procedures CT Retroperitoneal Abscess Drain Minnie Johnson MD [facility] [place] [address] [facility] [place] [address] Referral ID Status Reason Start Date Expiration Date V isits Requested Visits Authorized [id number] Closed Specialty Service Requested 03/22/2016 03/22/2017 1 1 Encounter Details Date Type Department Care Team (Late st Contact Info) Description 03/22/2016 Orders [place] [phone] Minnie Johnson MD [facility] [place] [address] Postoperative wound abscess, initial encounter Social History [...] : 1950 Referring Physician: Dr. Guerin from [facility] Indication: RLQ post-operative abscess Planned Procedure: CT guided abscess drain placement Chief Complaint/HPI: 65 y.o. male with PMHx significant for asthma, diabetes, and ulcerative colitis who is status post laparoscopic appendectomy on 03/13/2016 who noted RLQ pain several days post-op.He presented to [facility] ED and underwent a CT scan with findings consistent with RLQ abscess. We have been consulted for CT guided abscess drain placement. The patient has been admitted to [facility] and will be transferred back to [facility] following the procedure. OSH Labs: WBC [...] Hurtado. Minnie Johnson MD Radiology, PGY-2 Pager [phone] documented in this encounter Plan of Treatment Upcoming Encounters Date Type Department Care Team (Late st Contact Info) Description 07/01/2024 Hospital Encounter Heart and Vascular Unit Level 3 [place] [address] Bishop Godinez MD [facility] [address] 08/15/2024 9:00 AM EDT Office [place] [address] Dion Barlow MD [facility] [place] [address] 09/01/2024 11:20 AM EDT Office Visit Dermatology at [facility] [address] [place] [address] Gómez Mercer MD [facility] [address] ED[place] [address] 09/21/2024 2:45 PM EDT Office Visit Pain and Spine Center at [facility] [place] [address] Trung Hoyos MD [facility] [place] [address] documented as of this encounter Results * CT Retroperitoneal Abscess Drain (03/22/2016 12:34 PM EDT) Anatomical Region Laterality Modality Abdomen Computed Tomogra phy Narrative 03/22/2016 1:02 PM EDT VIR PROCEDURE NOTE Procedure: CT-guided RLQ?? drainage catheter placement (ACC # [id number]) Indication : 65 y.o. male with PMHx significant for asthma, diabetes, and ulcerative colitis who is status post laparoscopic appendectomy on 03/13/2016 who noted RLQ pain several days post-op. He presented to [facility] ED and underwent a CT scan with findings consistent with RLQ abscess. We have been consulted for CT guided abscess drain placement. The patient has been admitted to [facility] and will be transferred back to [facility] following the procedure. Technique: After discussing [...] encounter documented in this encounter Care Teams Predatory Animal Trapper Relationship Specialty Start Date End Date Maximilian Fall MD [address] [place] [address] PCP - General 10/01/11 02/13/21 documented as of this encounter
--- OUTSIDE RECORDS SUMMARY | 2024-06-29 23:35 | XMS_ITS | Encounter Summary ---
Author Organization [facility] [place] [address] Care Team Providers Care Instructor Kindergarten Name Role Phone Maximilian Fall MD Primary Care Provider [phone] Encounter Details Date Type Department Care Team (Latest Contact Info) Description 07/14/2016 11:55 AM EDT Laboratory Appointment Lab 3L [place] [address] Chronic ulcerative enterocolitis, unspecified complication; Acute amebic [...] Vascular Unit Level 3 [place] [address] Bishop Godinez MD [facility] [place] [address] 08/15/2024 9:00 AM EDT Office [place] [address] Dion Barlow MD [facility] [place] [address] 09/01/2024 11:20 AM EDT Office Visit Dermatology at [facility] [address] [place] [address] Gómez Mercer MD [facility] [place] [address] 09/21/2024 2:45 PM EDT Office Visit Pain and Spine Center at [facility] [place] [address] Trung Hoyos MD [facility] [place] [address] documented as of this encounter Procedures Procedure [...] * Differential, Automated (07/14/2016 12:21 PM EDT) Pathologist [facility] Neutrophil % 60.2 % [facility] Neutrophil Absolute 3.77 1.50 - 6.30 x10(3)/[facility] LABORAT[facility] Lymph % 27.2 % [facility] Lymphocytes Abs 1.7 1.0 - 3.6 x10(3)/[facility] LABOR[facility] Monocyte % 9.0 % [facility] Monocyte Abs 0.6 0.2 - 1.0 x10(3)/[facility] LABORATORY Eos % 2.6 % [facility] Eosinophils Abs 0.2 0.0 - 0.5 x10(3)/[facility] LABORATORY Basophil % 0.5 % [facility] Baso Absolute 0.0 0.0 - 0.2 x10(3)/[facility] LABORATORY Immature Gran % 0.50 % [facility] Comment: Immature granulocytes(IG's)percentage and absolute count will include metamyelocytes, myelocytes, and promyelocytes. Blood smears from CBCs yielding IG's will be scanned manually for concordance. If this scan disagrees with the automated IG or if promyelocytes are noted, a manual differential will be performed. Immature Gran Absolute 0.03 0.00 - 0.05 x10(3)/[facility] [place] specimen (specimen) 07/14/2016 12:21 PM EDT 07/14/2016 12:29 PM EDT Narrative Resulting Agency Comment Spec In Lab L Karthik Barlow MD HEMATOLOGY ORDERABLE S [facility] [place] [address] * (ABNORMAL) Hemogram (07/14/2016 12:21 PM EDT) [facility] White Blood Cell 6.2 4.0 - 10.0 x10(3)/mc L [facility] Red Blood Cell 4.11(L) 4.63 - 6.08 x10(6)/ L [facility] Hemoglobin 13.4(L) 13.7 - 17.5 gm/dL [facility] Hematocrit 40.5 40.0 - 51.0 % [facility] Mean Cell Volume 98.5(H) 79.0 - 92.0 fL [facility] Mean Cell Hemoglobin 32.6(H) 25.6 - 32.2 pg [facility] Mean Cell Hemoglobin Concentration 33.1 32.0 - 36.5 gm/dL [facility] Platelet 214 145 - 370 x10(3)/mc L [facility] RDW Standard Deviation 47.4(H) 35.0 - 46.0 fL [facility] RDW coefficient of variation 13.2 10.9 - 14.4 % [facility] Mean Platelet Volume 11.1 9.0 - 12.0 fL [facility] NRBC% auto 0.0 % [facility] NRBC Absolute 0.000 0.000 - 0.012 x10(3)/mc L [facility] Blood specimen (specimen) 07/14/2016 12:21 PM EDT 07/14/2016 12:29 PM EDT Narrative Resulting Agency Comment Spec In Lab L Karthik Barlow MD HEMATOLOGY ORDERABLE S Performing Organization Address City/[facility]/ZIP Co de Phone Number [facility] [place] [address] * (ABNORMAL) Sedimentation rate (07/14/2016 12:21 PM EDT) Sedimentation Rate Automated 17(H) 0 - 15 mm/hr [facility] Blood specimen (specimen) 07/14/2016 12:21 PM EDT 07/14/2016 12:29 PM EDT Narrative Resulting Agency Comment Spec In Lab L Karthik Barlow MD HEMATOLOGY ORDERABLE S [facility] [place] [address] * Comprehensive metabolic panel (non-fasting) (07/14/2016 12:21 PM EDT) Glucose 147 65 - 199 mg/dL [facility] Comment:Diabetes: >=200 mg/d L plus symptoms Blood Urea Nitrogen 17 10 - 20 mg/dL [facility] Creatinine 1.04 0.80 - 1.50 mg/dL [facility] Comment: Please note that the pediatric reference intervals supplied above were not validated at [facility]. Results from pediatric patients should be interpreted in conjunction to the patient's age, height and muscle mass. Sodium 140 135 - 145 mmol/L [facility] Potassium 4.6 3.5 - 5.0 mmol/L [facility] Comment: Please note: ??Patients with WBC >100,000 may have falsely elevated Potassium levels. ??For accurate Potassium quantification in these patients send serum separator tube (gold top) for subsequent determinations. ??Contact the Clinical Chemistry Laboratory if there are any questions. Chloride 102 98 - 107 mmol/L [facility] Carbon Dioxide 25 22 - 31 mmol/L [facility] Anion Gap 13 5 - 15 mmol/L [facility] Calcium 9.7 8.5 - 10.5 mg/dL [facility] Protein, Total 7.9 6.1 - 8.0 gm/dL [facility] Albumin 4.4 3.2 - 5.2 gm/dL [facility] Aspartate Aminotransferase 15 0 - 39 unit/L [facility] Alanine Aminotransferase 20 0 - 55 unit/L [facility] Alkaline Phosphatase 65 40 - 120 unit/L [facility] Bilirubin, Total 0.4 0.2 - 1.3 mg/dL [facility] Bilirubin, Direct 0.1 0.0 - 0.3 mg/dL [facility] Est Glomerular Filtration Rate >60 >=60 [facility] Comment: This estimated GFR (eGFR) [...] the following links into your internet browser. 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
--- OUTSIDE RECORDS SUMMARY | 2024-06-29 23:35 | XMS_ITS | Encounter Summary ---
Author Organization [facility] [place] [address] Care Team Providers Care Irish Moss Bleacher Name Role Phone Maximilian Fall MD Primary Care Provider [phone] Reason for Visit * Reason Comments Follow-up Encounter Details Date Type Department Care Team (Late st Contact Info) Description 05/11/2017 4:00 PM EDT Office [place] [address] Marcelle Weinberg APRN [facility] [place] [address] Ulcerative colitis without complications, unspecified location Social [...] Overview Note: ? Colonoscopy 04/08/10 (Dr. Gomes [facility] [...] 3.66) performed by Dion Osullivan MD at [facility] ENDOSCOPY ??? PRO COLONOSCOPY, DIAGNOSTIC 11/27/2011 COLONOSCOPY, DIAGNOSTIC performed by Dion OSULLIVAN at [facility] ENDOSCOPY ??? PRO COLONOSCOPY, DIAGNOSTIC 07/13/2014 COLONOSCOPY, DIAGNOSTIC performed by Dion Osullivan MD at [facility] ENDOSCOPY ??? PRO SIGMOIDOSCOPY, DIAGNOSTIC 03/16/2012 FLEXIBLE SIGMOIDOSCOPY performed by YUDI MALLOY at [facility] ENDOSCOPY ??? UPPER GI ENDOSCOPY, EXAM 10/01/2012 UPPER GI ENDOSCOPY performed by Dion OSULLIVAN at [facility] ENDOSCOPY Social History Social History ??? [...] 1140 ?? Resulting lab: [facility] ?? Value: [facility] Endoscopy Procedure Date: 02/12/2017 11:40 AM ? Patient Name: Brian Rodriguez ? Date of : 1950 ? Age: 66 ? Order #: [id number] ? Instrument Name: [id number] ? Procedure: ? Colonoscopy Indications: ? High risk colon cancer surveillance: ?Ulcerative colitis Patient Profile: ? This is a 66 year old male. This ?patient has left-sided ulcerative ?colitis on sulfasalazine and ?Cortifoam and is experiencing mild ?symptoms. Providers: ? Davina Osullivan MD, Vandana Love ?RONY Mckeon, Sonal Segura, ?Bilingual Sales Representative Referring MD: ?Maximilian Fall MD Medicines: ? [...] ?bowel preparation was evaluated using ?the BBPS (Ross Bowel Preparation ?Scale) with scores of: Right [...] Vascular Unit Level 3 [place] [address] Bishop Godinez MD [facility] [place] [address] 08/15/2024 9:00 AM EDT Office [place] [address] Dion Osullivan MD [facility] [place] [address] 09/01/2024 11:20 AM EDT Office Visit Dermatology at [facility] [address] [place] [address] Gómez Mercer MD [facility] DR EDDIE [place] [address] 09/21/2024 2:45 PM EDT Office Visit Pain and Spine Center at [facility] [place] [address] Trung Hoyos MD [facility] [place] [address] documented as of this encounter Procedures Procedure [...] 4:21 PM EDT) Neutrophil % 63.1 % [facility] Neutrophil Absolute 4.76 1.70 - 6.10 x10(3)/[facility] LABORATORY Lymph % 25.0 % [facility] Lymphocytes Abs 1.9 0.9 - 3.2 x10(3)/[facility] LABORATORY Monocyte % 7.6 % [facility] Monocyte Abs 0.6 0.3 - 0.9 x10(3)/[facility] LABORATORY Eos % 3.2 % [facility] Eosinophils Abs 0.2 0.0 - 0.4 x10(3)/[facility] LABORATORY Basophil % 0.7 % [facility] Baso Absolute 0.0 0.0 - 0.1 x10(3)/[facility] LABORATORY Immature Gran % 0.40 % [facility] Comment: Immature granulocytes(IG's)percentage and absolute count will include metamyelocytes, myelocytes, and promyelocytes. Blood smears from CBCs yielding IG's will be scanned manually for concordance. If this scan disagrees with the automated IG or if promyelocytes are noted, a manual differential will be performed. Immature Gran Absolute 0.03 0.00 - 0.04 x10(3)/[facility] LABORATORY Blood specimen (specimen) 05/11/2017 4:21 PM EDT 05/11/2017 4:29 PM EDT Narrative Resulting Agency Comment Spec In Lab Marcelle Weinberg APRN HEMATOLOGY ORDERA BLES [facility] [place] [address] * (ABNORMAL) Hemogram (05/11/2017 4:21 PM EDT) White Blood Cell 7.5 4.0 - 9.5 x10(3)/mc L [facility] Red Blood Cell 3.98(L) 4.58 - 5.54 x10(6)/mc L [facility] Hemoglobin 13.1(L) 13.7 - 16.5 gm/dL [facility] Hematocrit 39.4(L) 40.5 - 48.5 % [facility] Mean Cell Volume 99.0(H) 82.9 - 93.1 fL [facility] Mean Cell Hemoglobin 32.9(H) 27.5 - 32.1 pg [facility] Mean Cell Hemoglobin Concentration 33.2 32.0 - 35.7 gm/dL [facility] Platelet 220 145 - 357 x10(3)/mc L [facility] RDW Standard Deviation 44.6 36.0 - 45.0 fL [facility] RDW coefficient of variation 12.3 11.4 - 13.8 % [facility] Mean Platelet Volume 11.1 7.6 - 12.9 fL [facility] NRBC% auto 0.0 % [facility] NRBC Absolute 0.000 0.000 - 0.000 x10(3)/mc L [facility] Blood specimen (specimen) 05/11/2017 4:21 PM EDT 05/11/2017 4:29 PM EDT Narrative Resulting Agency Comment Spec In Lab Marcelle Weinberg HOST/HOSTESS GROUND HEMATOLOGY ORDERA BLES [facility] [place] [address] * CRP, acute inflammation (05/11/2017 4:21 PM EDT) C-Reactive Protein 2.3 <=4.9 mg/L [facility] Blood specimen (specimen) 05/11/2017 4:21 PM EDT 05/11/2017 4:29 PM EDT Narrative Resulting Agency Comment Spec In Lab Marcelle Weinberg HOST/HOSTESS GROUND CHEMISTRY ORDERAB LES [facility] [place] [address] * (ABNORMAL) Sedimentation rate (05/11/2017 4:21 PM EDT) Sedimentation Rate Automated 19(H) 0 - 15 mm/hr [facility] Blood specimen (specimen) 05/11/2017 4:21 PM EDT 05/11/2017 4:29 PM EDT Narrative Resulting Agency Comment Spec In Lab Marcelle Weinberg HOST/HOSTESS GROUND HEMATOLOGY ORDERA PETERS [facility] [place] [address] * (ABNORMAL) CMP w/fasting Glucose (05/11/2017 4:21 PM EDT) Glucose Fasting 91 65 - 99 mg/dL [facility] Comment: ?Fasting* Glucose Interpretive Criteria Normal [...] of Diabetes Mellitus, Position Statement from the [place] [employer]. ??Diabetes Care, Volume 33, Supplement 1, Nov 2009 Blood Urea Nitrogen 20 10 - 20 mg/dL [facility] Creatinine 1.17 0.80 - 1.50 mg/dL [facility] Comment: Please note that the pediatric reference intervals supplied above were not validated at [facility]. Results from pediatric patients should be interpreted in conjunction to the patient's age, height and muscle mass. Sodium 143 135 - 145 mmol/L [facility] Potassium 4.9 3.5 - 5.0 mmol/L [facility] Comment: Please note: ??Patients with WBC >100,000 may have falsely elevated Potassium levels. ??For accurate Potassium quantification in these patients send serum separator tube (gold top) for subsequent determinations. ??Contact the Clinical Chemistry Laboratory if there are any questions. Chloride 103 98 - 107 mmol/L [facility] Carbon Dioxide 26 22 - 31 mmol/L [facility] Anion Gap 14 5 - 15 mmol/L [facility] Calcium 9.9 8.5 - 10.5 mg/dL [facility] Protein, Total 8.2(H) 6.1 - 8.0 gm/dL [facility] Albumin 4.3 3.2 - 5.2 gm/dL [facility] Aspartate Aminotransferase 13 0 - 39 unit/L [facility] Alanine Aminotransferase 21 0 - 55 unit/L [facility] Alkaline Phosphatase 58 40 - 120 unit/L [facility] Bilirubin, Total 0.3 0.2 - 1.3 mg/dL [facility] Bilirubin, Direct 0.1 0.0 - 0.3 mg/dL [facility] Est Glomerular Filtration Rate >60 >=60 [facility] Comment: This estimated GFR (eGFR) value [...] the following links into your internet browser. [email or web address] Blood specimen (specimen) 05/11/2017 4:21 PM EDT 05/11/2017 4:29 PM EDT Narrative Resulting Agency Comment Spec In Lab Marcelle Weinberg HOST/HOSTESS GROUND CHEMISTRY ORDERAB LES [facility] [place] [address] documented in this encounter Visit Diagnoses Diagnosis Ulcerative colitis without complications, unspecified location documented in this encounter Care Teams Irish Moss Bleacher Relationship Specialty Start Date End Date Maximilian Fall MD [address] [place] [address] PCP - General 10/01/11 02/13/21 documented as of this encounter
--- OUTSIDE RECORDS SUMMARY | 2024-06-29 23:36 | XMS_ITS | Encounter Summary ---
Author Organization [facility] [place] [address] Care Team Providers Care Manuscripts Curator Name Role Phone Maximilian Fall MD Primary Care Provider [phone] Reason for Visit * Reason Onset Date Comments Research 02/20/2012 discuss [facility] Encounter Details Date Type Department Care Team (Late st Contact Info) Description 02/20/2012 Telephone Gastroenterology at [facility] [place] [phone] Mica Gore, [facility] [place] [address] Research (discuss [facility]) Social History Tobacco [...] Vascular Unit Level 3 Wing B at [place] [phone] Bishop Godinez MD [facility] [place] [address] 08/15/2024 9:00 AM EDT Office Visit Gastroenterology at [address] Dion Barlow MD [facility] [place] [address] 09/01/2024 11:20 AM EDT Office Visit Dermatology at [address] [phone] Gómez Mercer MD [facility] DR [place] [address] 09/21/2024 2:45 PM EDT Office Visit Pain and Spine Center at [place] [phone] Trung Hoyos MD [facility] [place] [address] documented as of this encounter Visit Diagnoses Not on filedocumented in this encounter Care Teams Manuscripts Curator Relationship Specialty Start Date End Date Maximilian Fall MD [address] [facility] [place] [address] PCP - General 10/01/11 02/13/21 documented as of this encounter
--- OUTSIDE RECORDS SUMMARY | 2024-06-29 23:36 | XMS_ITS | Encounter Summary ---
Author Organization [facility] [place] [address] Care Team Providers Care Shellfish Farming Supervisor Name Role Phone Maximilian Fall MD Primary Care Provider [phone] Reason for Visit * Reason Onset Date Comments Medication Refill 04/05/2014 Encounter Details Date Type Department Care Team (Late st Contact Info) Description 04/05/2014 Refill [place] [address] Dion Barlow MD [facility] [place] [address] Social History Tobacco Use Types Packs/Day Years [...] Vascular Unit Level 3 [place] [address] Bishop Godinez MD [facility] [place] [address] 08/15/2024 9:00 AM EDT Office [place] [address] Dion Barlow MD [facility] GASTROENTEROLOGY [place], [place] [address] 09/01/2024 11:20 AM EDT Office Visit Dermatology at [facility] [address] [place] [address] Gómez Mercer MD [facility] DR [place] [address] 09/21/2024 2:45 PM EDT Office Visit [place] [address] Trung Hoyos MD [facility] [address] documented as of this encounter Visit Diagnoses Not on filedocumented in this encounter Care Teams Shellfish Farming Supervisor Relationship Specialty Start Date End Date Maximilian Fall MD [address] [place] [address] PCP - General 10/01/11 02/13/21 documented as of this encounter
--- OUTSIDE RECORDS SUMMARY | 2024-06-29 23:36 | XMS_ITS | Encounter Summary ---
Author Organization [facility] [place] [address] Care Team Providers Care Lead Teacher Name Role Phone Maximilian Fall MD Primary Care Provider [phone] Reason for Visit * Reason Comments Follow-up Encounter Details Date Type Department Care Team (Late st Contact Info) Description 03/13/2015 1:00 PM EDT Follow-[place] [address] Dion Barlow MD [facility] [place] [address] Ulcerative colitis, other complication; Lethargy; Other ulcerative [...] Overview Note: ?? Colonoscopy 04/08/10 (Dr. Gomes [facility]) - inflammation only within the rectum [...] 6 months or sooner. Davina Barlow MD Certified Novell Administratorpress setup operator Section of Gastroenterology [place] [address] documented in this encounter Plan of Treatment Upcoming Encounters Date Type Department Care Team (Late st Contact Info) Description 07/01/2024 Hospital Encounter Heart and Vascular Unit Level 3 Wing B at [place] [phone] Bishop Godinez MD [facility] [place] [address] 08/15/2024 9:00 AM EDT Office Visit Gastroenterology at [place] [phone] Dion Barlow MD [facility] [place] [address] 09/01/2024 11:20 AM EDT Office Visit Dermatology at [address] [address] Gómez Mercer MD [facility] [address] EDDIE [place] [address] 09/21/2024 2:45 PM EDT Office Visit [facility] [place] [address] Trung Hoyos MD [facility] [place] [address] Scheduled Orders Name Type Priority Associated Diagnoses [...] MD HEMATOLOGY ORDERABLE S Performing Organization Address [facility] Co de Phone Number CERNER MILLENNIUM * (ABNORMAL) Hemogram (03/13/2015 2:00 PM EDT) White Blood Cell 6.3 4.0 - 10.0 x10(3)/mc L CERNER MILLENNIUM Red Blood Cell 3.99(L) 4.63 - 6.08 [...] Karthik Barlow MD HEMATOLOGY ORDERABLE S CERGIOVANNI COLBERTIUM * High Sensitivity CRP (03/13/2015 2:00 PM EDT) C-Reactive Protein High Sensitivity 2.1 mg/L CERNER [...] Barlow MD CHEMISTRY ORDERABLES Performing Organization Address [facility] de Phone Number DURGA FREDERICK * Hepatic Function Panel (03/13/2015 2:00 PM EDT) Pathologist [facility] Protein, Total 8.0 6.1 - 8.0 gm/dL [...] Barlow MD CHEMISTRY ORDERABLES Performing Organization Address [facility] Co de Phone Number DURGA COLBERTIUM * (ABNORMAL) TSH (03/13/2015 2:00 PM EDT) Thyroid Stimulating Hormone 5.66(H) 0.27 - 4.20 mcIU/mL CERNER MILLENNIUM Blood specimen (specimen) 03/13/2015 2:00 PM EDT 03/13/2015 2:14 PM EDT Narrative Resulting Agency Comment Spec In Lab L Karthik Barlow MD CHEMISTRY ORDERABLES CERNER MILLENNIUM * (ABNORMAL) Comprehensive metabolic panel (non-fasting) (03/13/2015 2:00 PM EDT) Glucose 125 60 - 199 mg/dL CERNER MILLENNIUM Comment:Diabetes: >=200 mg/d L plus symptoms Blood Urea Nitrogen 21(H) 10 - 20 mg/dL CERNER MILLENNIUM Creatinine 1.05 0.80 - 1.50 mg/dL CERNER MILLENNIUM Comment: Please note that the pediatric reference intervals supplied above were not validated at [facility]. Results from pediatric patients should be interpreted [...] the following links into your internet browser. [email or web address] Blood specimen (specimen) 03/13/2015 2:00 PM EDT 03/13/2015 2:14 PM EDT Narrative Resulting Agency Comment Spec In Lab L Karthik Barlow MD CHEMISTRY ORDERABLES DURGA FREDERICK documented in this encounter Visit Diagnoses Diagnosis Ulcerative colitis, other complication Lethargy Other malaise and fatigue Other ulcerative colitis documented in this encounter Care Teams Lead Teacher Relationship Specialty Start Date End Date Maximilian Fall MD [address] [place] [address] PCP - General 10/01/11 02/13/21 documented as of this encounter
--- OUTSIDE RECORDS SUMMARY | 2024-06-29 23:36 | XMS_ITS | Encounter Summary ---
Author Organization [facility] Address [facility] [address] Care Team Providers Care Paralegal Specialist Name Role Phone Maximilian Fall MD Primary Care Provider [phone] Reason for Visit * Reason Comments Follow-up Encounter Details Date Type Department Care Team (Late st Contact Info) Description 09/17/2015 4:00 PM EDT Office [place] [address] Marcelle Weinberg APRN [facility] [place] [address] Left sided colitis, unspecified complication Social History [...] Overview Note: ?? Colonoscopy 04/08/10 (Dr. Gomes [facility]) - inflammation only within the rectum and sigmoid; extent of the exam was to the hepatic flexure; biopsies proximal to the sigmoid nl ?? Repeat exam 11/27/11 [place] mildly active colitis in the sigmoid colon [...] Vascular Unit Level 3 Wing B at [place] [phone] Bishop Godinez MD [facility] [place] [address] 08/15/2024 9:00 AM EDT Office Visit Gastroenterology at [place] [phone] Dion Barlow MD [facility] [address] 09/01/2024 11:20 AM EDT Office Visit Dermatology at [place] [address] [place] [phone] Gómez Merecr MD [facility] DR [place] [address] 09/21/2024 2:45 PM EDT Office Visit Pain and Spine Center at [place] [phone] Trung Hoyos MD [facility] [place] [place] [address] documented as of this encounter Procedures Procedure [...] MD HEMATOLOGY ORDERABLE S Performing Organization Address City/[facility]/ZIP Co de Phone Number CERGIOVANNI ORDOÑEZENNIUM * (ABNORMAL) Hemogram (09/17/2015 4:30 PM EDT) White Blood Cell 6.7 4.0 - 10.0 [...] MD HEMATOLOGY ORDERABLE S CERGIOVANNI ORDOÑEZENNIUM * High Sensitivity CRP (09/17/2015 4:30 PM EDT) C-Reactive Protein High Sensitivity 2.9 mg/L [facility] Comment: Interpretations: 1) For accurate cardiac [...] Organization Address [facility] Co de Phone Number [facility] * (ABNORMAL) Sedimentation rate (09/17/2015 4:30 PM EDT) Pathologist [facility] Sedimentation Rate Automated 17(H) 0 - 15 mm/hr [facility] Blood specimen (specimen) 09/17/2015 4:30 PM EDT 09/17/2015 4:33 PM EDT Narrative Resulting Agency Comment Spec In Lab L Karthik Barlow MD HEMATOLOGY ORDERABLE S Performing Organization Address [facility] Co de Phone Number [facility] * (ABNORMAL) CMP w/fasting Glucose (09/17/2015 4:30 PM EDT) Glucose Fasting 140(H) 65 - 99 mg/dL CERNER MILLENNIUM Comment: [...] of Diabetes Mellitus, Position Statement from the [place] [employer]. ??Diabetes Care, Volume 33, Supplement 1, Nov 2009 Blood Urea Nitrogen 17 10 - 20 mg/dL CERNER MILLENNIUM Creatinine 1.10 0.80 - 1.50 mg/dL CERNER MILLENNIUM Comment: Please note that the pediatric reference intervals supplied above were not validated at [facility]. Results from pediatric patients should be interpreted [...] the following links into your internet browser. [email or web address] Blood specimen (specimen) 09/17/2015 4:30 PM EDT 09/17/2015 4:33 PM EDT Narrative Resulting Agency Comment Spec In Lab L Karthik Barlow MD CHEMISTRY ORDERABLES Performing Organization Address City/State/[facility] Co de Phone Number [facility] documented in this encounter Visit Diagnoses Diagnosis Left sided colitis, unspecified complication documented in this encounter Care Teams Paralegal Specialist Relationship Specialty Start Date End Date Maximilian Fall MD [address] [place] [address] PCP - General 10/01/11 02/13/21 documented as of this encounter
--- OUTSIDE RECORDS SUMMARY | 2024-06-29 23:36 | XMS_ITS | Encounter Summary ---
Author Organization [facility] [place] [address] Care Team Providers Care Derrick Boat Runner Name Role Phone Maximilian Fall MD Primary Care Provider [phone] Encounter Details Date Type Department Care Team (Late st Contact Info) Description 03/03/2012 Orders [place] [address] Mica Gore APRN [facility] [place] [address] Ulcerative colitis (Primary Dx) Social History Tobacco [...] Unit Level 3 [place] [address] Bishop Godinez MD [facility] [place] [address] 08/15/2024 9:00 AM EDT Office Visit [place] [address] Dion Barlow MD [facility] [place] [address] 09/01/2024 11:20 AM EDT Office Visit Dermatology at [facility] [address] [place] [address] Gómez Mercer MD [facility] DR EDDIE [place] [address] 09/21/2024 2:45 PM EDT Office Visit [facility] [place] [address] Trung Hoyos MD [facility] [place] [address] documented as of this encounter Procedures Procedure Name Priority Date/Time Associated Diagnosis Comments FLEXIBLE SIGMOIDOSCOPY Routine 2 1:15 PM EDT Ulcerative colitis documented in this encounter Results * FLEXIBLE SIGMOIDOSCOPY (03/16/2012 1:15 PM EDT) FLEXIBLE SIGMOIDOSCOPY [facility] Patient Name: Brian Rodriguez ? Procedure Date: 03/16/2012 1:15 PM ? Date of : 1950 ? Age: 61 ? Order #: [id number] ? Procedure: ? Flexible Sigmoidoscopy Indications: ? pt with active UC, assess severity ? prior to entry in MTX study Providers: ? Enrico Tellez MD, April Augustine ? RONY Archibald, Kingsley Oneal, ? Keypunch Operators Supervisor Referring MD: ?Maximilian Fall MD Requesting Provider: [...] Karthik Barlow MD GENERAL SURGICAL ORD ERABLES Performing Organization Address City/State/[facility] Co de Phone Number [employer] documented in this encounter Visit Diagnoses Diagnosis Ulcerative colitis- Primary Ulcerative colitis, unspecified documented in this encounter Care Teams Derrick Boat Runner Relationship Specialty Start Date End Date Maximilian Fall MD [address] [place] [address] PCP - General 10/01/11 02/13/21 documented as of this encounter
--- OUTSIDE RECORDS SUMMARY | 2024-06-29 23:36 | XMS_ITS | Encounter Summary ---
Author Organization [facility] [place] [address] Care Team Providers Care Beater Engineer Name Role Phone More Naylor MD Primary Care Provider [phone] Reason for Visit * Reason Comments Follow-up Encounter Details Date Type Department Care Team (Late st Contact Info) Description 03/06/2014 8:30 AM EDT [place] [address] Dion Barlow MD [facility] [place] [address] Ulcerative colitis, with rectal bleeding (Primary Dx) [...] ??? Ulcerative colitis Colonoscopy 04/08/10 (Dr. Gomes [facility]) - inflammation only within the rectum and sigmoid; extent of the exam was to the hepatic flexure; biopsies proximal to the sigmoid nl Repeat exam [place]27/11 [place] mildly active colitis in the sigmoid colon [...] or most commonly, upper respiratory infections; positive eflz-jwcanl-msenxigu DNA antibodies, and rarely a lupus-like syndrome; [...] CC: MORE NAYLOR MD [address] [place] [address] documented in this encounter Plan of Treatment Upcoming Encounters Date Type Department Care Team (Late st Contact Info) Description 07/01/2024 Hospital Encounter Heart and Vascular Unit Level 3 Wing B at [place] [phone] Bishop Godinez MD [facility] [place] [address] 08/15/2024 9:00 AM EDT Office Visit Gastroenterology at [place] [phone] Dion Barlow MD [facility] [place] [address] 09/01/2024 11:20 AM EDT Office Visit Dermatology at [address] [place] [phone] Gómez Mercer MD [facility] DR EDD[place] [address] 09/21/2024 2:45 PM EDT Office Visit Pain and Spine Center at [place] [phone] Trung Hoyos MD [facility] [place] [address] documented as of this encounter Procedures Procedure [...] Urine Dipstick Clear Clear CERNER MILLENNIUM Specific [place] Urine Automated 1.019 1.002 - 1.030 CERNER [...] L Karthik Barlow MD URINE ORDERABLES CERNER SOL REPUBLICENNIUM * Differential, Automated (03/06/2014 9:39 AM EDT) Pathologist [facility] Neutrophil % 64.8 34.0 - 71.0 % [facility] Neutrophil Absolute 3.24 1.50 - 6.30 x10(3)/mcL CERNER MILLENNIUM Lymph % 25.2 19.0 - 53.0 % [facility] MILLEN[facility]UM Lymphocytes Abs 1.3 1.0 - 3.6 [...] 0.2 x10(3)/mcL CERNER MILLENNIUM Immature Gran % 0.20 0.00 - 0.66 % [facility] MILLENNIUM Comment: Immature granulocytes(IG's)percentage and absolute count will include metamyelocytes, myelocytes, and promyelocytes. Blood smears from CBCs yielding IG's will be scanned manually for concordance. If this scan disagrees with the automated IG or if promyelocytes are noted, a manual differential will be performed. Immature Gran Absolute 0.01 0.00 - 0.05 x10(3)/mcL [facility] Blood specimen (specimen) 03/06/2014 9:39 AM EDT 03/06/2014 9:47 AM EDT L Karthik Barlow MD HEMATOLOGY ORDERABLE S [facility] * QuantiFERON-TB Gold (03/06/2014 9:39 AM EDT) Pathologist [facility] Quantiferon-TB Gold Negative Negative [facility] Comment: Nil (IU/mL)=0.03 TB Ag minus Nil [...] Lab L Karthik Barlow MD CHEMISTRY ORDERABLES [facility] * High Sensitivity CRP (03/06/2014 9:39 AM EDT) [facility] Signature C-Reactive Protein High Sensitivity 1.7 mg/L CERNER MILLENNIUM Comment: Interpretations: 1) For [...] Lab L Karthik Barlow MD CHEMISTRY ORDERABLES [facility] * (ABNORMAL) CBC (with Diff) (03/06/2014 9:39 [...] Standard Deviation 47.4(H) 35.0 - 46.0 fL DURGA ORDOÑEZENNIUM RDW coefficient of variation 12.9 10.9 - 14.4 % CERGIOVANNI ORDOÑEZENNIUM Mean Platelet Volume 11.6 9.0 - 12.0 fL DURGA ORDOÑEZENNIUM Blood specimen (specimen) 03/06/2014 9:39 AM EDT 03/06/2014 9:47 AM EDT Narrative Resulting Agency Comment Spec In Lab L Karthik Barlow MD HEMATOLOGY ORDERABLE S DURGA FREDERICK documented in this encounter Visit Diagnoses Diagnosis Ulcerative colitis, with rectal bleeding- Primary documented in this encounter Care Teams Beater Engineer Relationship Specialty Start Date End Date More Naylor MD [address] [place] [address] PCP - General 10/01/11 02/13/21 documented as of this encounter
--- OUTSIDE RECORDS SUMMARY | 2024-06-29 23:36 | XMS_ITS | Encounter Summary ---
Author Organization [facility] [place] [address] Care Team Providers Care Senior Actuarial Analyst Name Role Phone Maximilian Fall MD Primary Care Provider [phone] Encounter Details Date Type Department Care Team (Late st Contact Info) Description 03/16/2012 Orders [place] [phone] Dion Barlow MD [facility] [place] [address] Ulcerative colitis (Primary Dx) Social History Tobacco [...] Vascular Unit Level 3 [place] [address] Bishop Godinez MD [facility] [place] [address] 08/15/2024 9:00 AM EDT Office [place] [address] Dion Barlow MD [facility] [place] [address] 09/01/2024 11:20 AM EDT Office Visit Dermatology at [facility] [address] [place] [phone] Gómez Mercer MD [facility] DR EDDIE SANCHEZ-DERMATOLOGY [place], [place] [address] 09/21/2024 2:45 PM EDT Office Visit Pain and Spine Center at [place] [phone] Trung Hoyos MD [facility] [address] documented as of this encounter Visit Diagnoses Diagnosis Ulcerative colitis- Primary Ulcerative colitis, unspecified documented in this encounter Care Teams Senior Actuarial Analyst Relationship Specialty Start Date End Date Maximilian Fall MD [address] [place] [address] PCP - General 10/01/11 02/13/21 documented as of this encounter
--- OUTSIDE RECORDS SUMMARY | 2024-06-29 23:36 | XMS_ITS | Encounter Summary ---
Author Organization [facility] [place] [address] Care Team Providers Care Barrel Line Operator Name Role Phone Maximilian Fall MD Primary Care Provider [phone] Encounter Details Date Type Department Care Team (Late st Contact Info) Description 09/30/2012 Telephone [place] [phone] Lilliana Reece RN Social History Tobacco Use [...] louis ----- Message ----- From: Lab In [facility] Chong Sent: 09/20/2012 11:34 AM To: [...] Vascular Unit Level 3 [place] [address] Bishop Godinez MD [facility] [place] [address] 08/15/2024 9:00 AM EDT Office [place] [address] Dion Barlow MD [facility] [place] [address] 09/01/2024 11:20 AM EDT Office Visit Dermatology at [address] [place] [address] Gómez Mercer MD [facility] DR [place] [address] 09/21/2024 2:45 PM EDT Office Visit [facility] Spine Center at [place] [phone] Trung Hoyos MD [facility] [place] [address] documented as of this encounter Visit Diagnoses Not on filedocumented in this encounter Care Teams Barrel Line Operator Relationship Specialty Start Date End Date Maximilian Fall MD [address] [place] [address] PCP - General 10/01/11 02/13/21 documented as of this encounter
--- OUTSIDE RECORDS SUMMARY | 2024-06-29 23:36 | XMS_ITS | Encounter Summary ---
Author Organization [facility] Address [facility] [place] [address] Care Team Providers Care Sfdc Solution Architect Name Role Phone Maximilian Fall MD Primary Care Provider [phone] Encounter Details Date Type Department Care Team (Latest Contact Info) Description 03/02/2012 9:31 AM EDT - 03/02/2012 11:59 PM EDT Hospital Encounter XRay at [address] [place] [address] CLINIC, Dion Edmonds MD [facility] [place] [address] Exam for clinical research Discharge Disposition: Home [...] Vascular Unit Level 3 [place] [phone] Bishop Godinez MD [facility] [place] [address] 08/15/2024 9:00 AM EDT Office [place] [phone] Dion Barlow MD [facility] [place] [address] 09/01/2024 11:20 AM EDT Office Visit Dermatology at [address] [phone] Gómez Mercer MD [facility] DR EDDIE [place] [address] 09/21/2024 2:45 PM EDT Office Visit [facility] Spine Center at [place] [phone] Trung Hoyos MD [facility] [place] [address] documented as of this encounter Procedures Procedure [...] trial documented in this encounter Care Teams Sfdc Solution Architect Relationship Specialty Start Date End Date Maximilian Fall MD [address] [place] [address] PCP - General 10/01/11 02/13/21 documented as of this encounter
--- OUTSIDE RECORDS SUMMARY | 2024-06-29 23:36 | XMS_ITS | Encounter Summary ---
Author Organization [facility] [place] [address] Care Team Providers Care Director Of Instrumental Music Name Role Phone Maximilian Fall MD Primary Care Provider [phone] Encounter Details Date Type Department Care Team (Late st Contact Info) Description 07/13/2014 2:30 PM EDT - 07/13/2014 3:30 PM EDT [place] [address] Dion Osullivan MD [facility] DR [place] [address] COLONOSCOPY, DIAGNOSTIC (WRVU 3.26) Social History Tobacco [...] - 07/13/2014 4:14 PM EDT Please call [phone], before 5pm with problems, questions or concerns, after 5pm call the Hospital at [phone] and ask to speak to the Architectural Wood Model Maker loss prevention agent and the mash preparatory operator will contactthat person for you. Discharge [...] through Care Everywhere. * COLONOSCOPY : POSTOP (GREENLANDIC) documented in this encounter Medications at Time [...] Osullivan MD - 07/13/2014 3:57 PM EDT [facility] Operative Note Patient Name: Naya Rodriguez : [id number] MR#: [id number] Case Date: 07/13/2014 Surgeon: Surgeon(s) and Role: [...] Vascular Unit Level 3 [place] [address] Bishop Godinez MD [facility] [place] [address] 08/15/2024 9:00 AM EDT Office [place] [address] Dion Osullivan MD [facility] [place] [address] 09/01/2024 11:20 AM EDT Office Visit Dermatology at [address] [phone] Gómez Mercer MD [facility] [address] 09/21/2024 2:45 PM EDT Office Visit [place] [address] Trung Hoyos MD [facility] [place] [address] documented as of this encounter Procedures Procedure [...] [facility] ? Provider: ?? Dion OSULLIVAN ?Pt. Name: ?? SHANT NAYA Joya ? Acc #: ?[id number] ?Pt. ? Col Date: ?? 07/13/2014 ? [...] [facility] ? Provider: ?? Dion OSULLIVAN ?Pt. Name: ?? NAYA RODRIGUEZ ? Acc #: ?[id number] ?Pt. ? Col Date: ?? 07/13/2014 ? [...] 3:58 PM EDT 07/13/2014 3:58 PM EDT L Karthik Osullivan MD PATHOLOGY/CYTOLOGY O RDMELISSA DURGA ORDOÑEZAURORA [facility] [place] [address] * Specimen to Pathology (surgical or derm) (07/13/2014 3:58 PM EDT) AP Specimen 07/13/2014 3:58 PM EDT 07/13/2014 3:58 PM EDT Narrative DURGA TIAGOTADEOIUM - 07/13/2014 3:58 PM EDT Specimen requisition ordered. ??Separate Pathology report to follow L Karthik Osullivan MD PATHOLOGY/CYTOLOGY O RDMELISSA Performing Organization Address City/[facility]/ZIP Co de Phone Number DURGA FREDERICK * Specimen to Pathology (surgical or derm) (07/13/2014 3:58 PM EDT) AP Specimen 07/13/2014 3:58 PM EDT 07/13/2014 3:58 PM EDT Narrative DURGA FILEMONIUM - 07/13/2014 3:58 PM EDT Specimen requisition ordered. ??Separate Pathology report to follow L Karthik Osullivan MD PATHOLOGY/CYTOLOGY O CEE Performing Organization Address City/[facility]/ZIP Co de Phone Number DURGA FREDERICK * Specimen to Pathology (surgical or derm) (07/13/2014 3:58 PM EDT) AP Specimen 07/13/2014 3:58 PM EDT 07/13/2014 3:58 PM EDT Narrative JO-ANNGIOVANNI COLBERTIUM - 07/13/2014 3:58 PM EDT Specimen requisition ordered. ??Separate Pathology report to follow L Karthik Osullivan MD PATHOLOGY/CYTOLOGY O RDMELISSA DURGA COLBERTIUM * COLONOSCOPY (07/13/2014 2:51 PM EDT) COLONOSCOPY [facility] Endoscopy Patient Name: Naya Rodriguez ? Procedure Date: 07/13/2014 2:51 PM ? Date of : 1950 ? Age: 64 ? Order #: [id number] ? Procedure: ? Colonoscopy Indications: ? Follow-up of left-sided chronic ? ulcerative colitis Providers: ? LAnalia Osullivan MD, Emily Quinn, ? RN, Luna Connors, RONY, Cam Ghosh ? Doug, Health Education Teacher Referring MD: ?Maximilian Fall MD Medicines: ? [...] SURGICAL ORD ERABLES [facility] * POCT Glucose (07/13/2014 1:59 PM EDT) Glucose, POC 167 60 - 199 mg/dL [facility] Comment: Supplemental ranges: <140 mg/dL before meals <180 mg/dL all other times of the day Blood specimen (specimen) 07/13/2014 1:59 PM EDT 07/13/2014 1:59 PM EDT L Karthik Osullivan MD POINT OF CARE TEST O RDERABLES Performing Organization Address City/State/ZIP Co il Phone Number DURGA FREDERICK documented in this [...] 50mcg/mL injection (CANCELED) ONCE PRN, Starting on Rtesa 07/13/14 at 1459, Until Tresa 07/13/14 at [...] - Comment: continuing sedation)1524 (Given - Provider: uLna Connors RN - Comment: continuing sedation)1528 (Given - Provider: Luna Connors RN - Comment: pt uncomfortable)1532 (Given - Provider: Luna Connors RN - Comment: pt uncomfortable)1540 (Given - Provider: Luna Connors RN - Comment: pt uncomfortable) documented in this encounter Care Teams Director Of Instrumental Music Relationship Specialty Start Date End Date Maximilian Fall MD [address] [place] [address] PCP - General 10/01/11 02/13/21 documented as of this encounter
--- OUTSIDE RECORDS SUMMARY | 2024-06-29 23:36 | XMS_ITS | Encounter Summary ---
Author Organization [facility] [place] [address] Care Team Providers Care Regional Production Manager Name Role Phone More Naylor MD Primary Care Provider [phone] Reason for Visit * Reason Comments Follow-up Encounter Details Date Type Department Care Team (Late st Contact Info) Description 11/01/2013 2:00 PM EST Follow-[place] [phone] Dion Barlow MD [facility] [place] [address] Ulcerative colitis (Primary Dx) Discharge Disposition: Home [...] ??? Ulcerative colitis Colonoscopy 04/08/10 (Dr. Gomes [facility]) - inflammation only within the rectum and sigmoid; extent of the exam was to the hepatic flexure; biopsies proximal to the sigmoid nl Repeat exam 11/27/11 ([facility] mildly active colitis in the [...] has left-sided ulcerative colitis with persistently active [id number] symptom - now worse off of his [...] CC: MORE NAYLOR MD [address] [place] [address] documented in this encounter Plan of Treatment Upcoming Encounters Date Type Department Care Team (Late st Contact Info) Description 07/01/2024 Hospital Encounter Heart and Vascular Unit Level 3 [place] [address] Bishop Godinez MD [facility] [place] [address] 08/15/2024 9:00 AM EDT Office [place] [phone] Dion Barlow MD [facility] GASTROENTEROLOGY [place], [place] [phone] 09/01/2024 11:20 AM EDT Office Visit Dermatology at [facility] [address] [place] [phone] Gómez Mercer MD [facility] DR EDDIE [place] [address] 09/21/2024 2:45 PM EDT Office Visit [facility] [place] [address] Trung Hoyos MD [facility] PAIN MANAGEMENT [place], [place] [phone] documented as of this encounter Procedures Procedure [...] L Karthik Barlow MD HEMATOLOGY ORDERABLE S [facility] MILLENNIUM * (ABNORMAL) Comprehensive metabolic panel (non-fasting) (11/01/2013 3:39 PM EST) [facility] Glucose 110 60 - 199 mg/dL CERNER MILLENNIUM Comment:Diabetes: >=200 mg/d L plus symptoms Blood Urea Nitrogen 11 10 - 20 mg/dL [facility]ER MILLENNIUM Creatinine 0.91 0.80 - 1.50 mg/dL [facility] M[facility]ENNI[facility] Comment: Please note that the pediatric reference intervals supplied above were not validated at [facility]. Results from pediatric patients should be interpreted [...] Lab L Karthik Barlow MD CHEMISTRY ORDERABLES CERGIOVANNI COLBERTIUM * (ABNORMAL) CBC (with Diff) (11/01/2013 3:39 [...] Platelet 202 145 - 370 x10(3)/mc L CERNER MILLENNIUM RDW Standard Deviation 46.4(H) 35.0 - 46.0 fL CERNER MILLENNIUM RDW coefficient of variation 12.7 10.9 - 14.4 % [facility] MILLENNIUM Mean Platelet Volume 11.7 9.0 - 12.0 fL [facility] MILLENNIUM Blood specimen (specimen) 11/01/2013 3:39 PM EST 11/01/2013 3:44 PM EST Narrative Resulting Agency Comment Spec In Lab L Karthik Barlow MD HEMATOLOGY ORDERABLE S DURGA FREDERICK documented in this encounter Visit Diagnoses Diagnosis Ulcerative colitis- Primary Ulcerative colitis, unspecified documented in this encounter Care Teams Regional Production Manager Relationship Specialty Start Date End Date More Naylor MD [address] [place] [address] PCP - General 10/01/11 02/13/21 documented as of this encounter
--- OUTSIDE RECORDS SUMMARY | 2024-06-29 23:36 | XMS_ITS | Encounter Summary ---
Author Organization [facility] [place] [address] Care Team Providers Care Ferry Operator Name Role Phone Maximilian Fall MD Primary Care Provider [phone] Reason for Visit * Reason Onset Date Comments Medication Refill 11/22/2012 Encounter Details Date Type Department Care Team (Late st Contact Info) Description 11/22/2012 Refill [place] [address] Dion Barlow MD [facility] [place] [address] Ulcerative colitis (Primary Dx) Social History Tobacco [...] Vascular Unit Level [place] [address] Bishop Godinez MD [facility] [place] [address] 08/15/2024 9:00 AM EDT Office [place] [address] Dion Barlow MD [facility] [place] [address] 09/01/2024 11:20 AM EDT Office Visit Dermatology at [facility] [address] [place] [place] [address] Gómez Mercer MD [facility] [place] [address] 09/21/2024 2:45 PM EDT Office Visit Pain and Spine Center at [place] [phone] Trung Hoyos MD [facility] [place] [address] documented as of this encounter Visit Diagnoses Diagnosis Ulcerative colitis- Primary Ulcerative colitis, unspecified documented in this encounter Care Teams Ferry Operator Relationship Specialty Start Date End Date Maximilian Fall MD [address] [place] [address] PCP - General 10/01/11 02/13/21 documented as of this encounter
--- OUTSIDE RECORDS SUMMARY | 2024-06-29 23:36 | XMS_ITS | Encounter Summary ---
Author Organization [facility] [place] [address] Care Team Providers Care Landscape Specialist Name Role Phone Maximilian Fall MD Primary Care Provider [phone] Reason for Visit * Reason Comments Follow-up Encounter Details Date Type Department Care Team (Late st Contact Info) Description 06/05/2014 9:30 AM EDT [place] [address] Marcelle Weinberg APRN [facility] [place] [address] Other ulcerative colitis (Primary Dx) Discharge Disposition: [...] this encounter Progress Notes * Marcelle Weinberg, GERMAN TUTOR - 06/05/2014 9:29 AM EDT ??? Ulcerative colitis Colonoscopy 04/08/10 (Dr. Gomes [facility]) - inflammation only within the rectum and sigmoid; extent of the exam was to the hepatic flexure; biopsies proximal to the sigmoid nl Repeat exam 11/27/11 ([facility]): mildly active colitis in the sigmoid colon [...] Vascular Unit Level [place] [address] Bishop Godinez MD [facility] [place] [address] 08/15/2024 9:00 AM EDT Office [place] [phone] Dion Barlow MD [facility] [place] [address] 09/01/2024 11:20 AM EDT Office Visit Dermatology at [facility] [address] [place] [phone] Gómez Mercer MD [facility] DR [place] [address] 09/21/2024 2:45 PM EDT Office Visit [place] [address] Trung Hoyos MD [facility] [place] [address] Scheduled Orders Name Type Priority Associated Diagnoses Orde r Schedule COLONOSCOPY Procedures Routine Other ulcerative colitis Ordered: 06/05/2014 documented as of this encounter Visit Diagnoses Diagnosis Other ulcerative colitis- Primary documented in this encounter Care Teams Landscape Specialist Relationship Specialty Start Date End Date Maximilian Fall MD [address] [place] [address] PCP - General 10/01/11 02/13/21 documented as of this encounter
--- OUTSIDE RECORDS SUMMARY | 2024-06-29 23:36 | XMS_ITS | Encounter Summary ---
Author Organization [facility] [place] [address] Care Team Providers Care Manager Project Name Role Phone Maximilian Fall MD Primary Care Provider [phone] Encounter Details Date Type Department Care Team (Latest Contact Info) Description 10/01/2012 2:23 PM EST - 10/01/2012 6:31 PM EST Hospital Encounter [place] [address] Dion Osullivan MD [facility] [place] [address] Discharge Disposition: Home Social History Tobacco Use [...] GI ENDOSCOPY: WHAT TO EXPECT AT HOME (TELUGU) documented in this encounter Medications at Time [...] Osullivan MD - 10/01/2012 5:07 PM EST [facility] Operative Note Patient Name: Naya Rodriguez : [id number] MR#: [id number] Case Date: 10/01/2012 Surgeon: Surgeon(s) and Role: [...] Vascular Unit Level [place] [phone] Bishop Godinez MD [facility] [place] [address] 08/15/2024 9:00 AM EDT Office Visit Gastroenterology at [place] [phone] Dion Osullivan MD [facility] [place] [address] 09/01/2024 11:20 AM EDT Office Visit Dermatology at [address] [address] Gómez Mercer MD [facility] DR [place] [address] 09/21/2024 2:45 PM EDT Office Visit Pain [place] [address] Trung Hoyos MD [facility] [place] [address] documented as of this encounter Procedures Procedure [...] 5:54 PM EST) Surgical Pathology Report ? [facility] ? Provider: ?? Dion OSULLIVAN ?Pt. Name: ?? NAYA RODRIGUEZ ? Acc #: ?[id number] ?Pt. ? Col Date: ?? 10/01/2012 ? [...] L Karthik Osullivan MD PATHOLOGY/CYTOLOGY O CEE [facility] * Specimen to Pathology (surgical or derm) (10/01/2012 5:09 PM EST) AP Specimen 10/01/2012 5:09 PM EST 10/01/2012 5:09 PM EST Narrative [facility] - 10/01/2012 5:09 PM EST Specimen requisition ordered. ??Separate Pathology report to follow L Karthik Osullivan MD PATHOLOGY/CYTOLOGY O CEE [facility] * UPPER GI ENDOSCOPY (10/01/2012 4:41 PM EST) UPPER GI ENDOSCOPY [facility] Endoscopy Patient Name: Naya Rodriguez ? Procedure Date: 10/01/2012 4:41 PM ? Date of : 1950 ? Age: 62 ? Order #: [id number] ? Procedure: ? Upper GI endoscopy Indications: ? Epigastric abdominal pain Providers: ? L Karthik Osullivan MD, Alannah Singletary, ? RN, Mona Osborne, Maintenance Service Supervisor Referring MD: ?Maximilian Fall MD Medicines: ? [...] EST Maximilian Fall MD GENERAL SURGICAL ORD MELISSA Performing Organization Address City/[facility] Co de Phone Number [facility] * POCT GLUCOSE (10/01/2012 4:27 PM EST) Glucose, POC 84 60 - 199 mg/dL CERNER MILLENNIUM Comment: Supplemental ranges: <110 mg/dL before meals <200 mg/dL all other times of the day Blood specimen (specimen) 10/01/2012 4:27 PM EST 10/01/2012 4:27 PM EST Dion Osullivan MD POINT OF CARE TEST O RDMELISSA Performing Organization Address City/[facility] Co de Phone Number [...] Singletary RN)165 (Given - Provider: Alannah Singletary RN)165 (Given - Provider: Alannah Singletary RN) midazolam (VERSED) injection (CANCELED) ONCE PRN, Starting on Thu10/01/12 at 1654, Until Thu10/01/12 at 2031, Sleep, Intra-Operative (Intra-Procedure), Routine 1654 (Given - Provid er: Alannah Singletary RN)165 (Given - Provider: Alannah Singletary RN) documented in this encounter Care Teams Manager Project Relationship Specialty Start Date End Date Maximilian Fall MD [address] [place] [address] PCP - General 10/01/11 02/13/21 documented as of this encounter
--- OUTSIDE RECORDS SUMMARY | 2024-06-29 23:36 | XMS_ITS | Encounter Summary ---
Author Organization [facility] [place] [address] Care Team Providers Care Metal Container Maker Name Role Phone Maximilian Fall MD Primary Care Provider [phone] Encounter Details Date Type Department Care Team (Latest Contact Info) Description 07/13/2014 1:25 PM EDT - 07/13/2014 4:30 PM EDT Hospital En[place] [address] Dion Osullivan MD [facility] [place] [address] Discharge Disposition: Home Social History Tobacco Use [...] - 07/13/2014 4:14 PM EDT Please call [phone], before 5pm with problems, questions or concerns, after 5pm call the Hospital at [phone] and ask to speak to the Operations Manager Assistant environmental compliance manager and the production assembly operator will contactthat person for you. Discharge [...] through Care Everywhere. * COLONOSCOPY : POSTOP (ESTONIAN) documented in this encounter Medications at Time [...] Osullivan MD - 07/13/2014 3:57 PM EDT [facility] Operative Note Patient Name: Naya Rodriguez : [id number] MR#: [id number] Case Date: 07/13/2014 Surgeon: Surgeon(s) and Role: [...] Level 3 Wing [place] [address] Bishop Godinez MD [facility] [place] [address] 08/15/2024 9:00 AM EDT Office Visit Gastroenterology at [place] [phone] Dion Osullivan MD [facility] [place] [address] 09/01/2024 11:20 AM EDT Office Visit Dermatology at [facility] [address] [place] [address] Gómez Mercer MD [facility] DR [place] [address] 09/21/2024 2:45 PM EDT Office Visit [place] [phone] Trung Hoyos MD [facility] [place] [address] documented as of this encounter Procedures Procedure [...] (07/13/2014 3:58 PM EDT) Final Diagnosis ? [facility] ? Provider: ?? Dion OSULLIVAN ?Pt. Name: ?? NAYA RODRIGUEZ ? Acc #: ?[id number] ?Pt. ? Col Date: ?? 07/13/2014 ? [...] - Mucosal biopsies - R colon ? [facility] ? Provider: ?? Dion OSULLIVAN ?Pt. Name: ?? NAYA RODRIGUEZ ? Acc #: ?[id number] ?Pt. ? Col Date: ?? 07/13/2014 ? /Sex: ?1950,(64 years),Male ? Rec Date: ?? 07/13/2014 ? LOC: ?4T ? SURGICAL PATHOLOGY ? Clinical History: ? 64-year-old with a history of left sided UC ? Clinical Diagnosis: ? Same 07/14/2014 4:08 PM EDT [facility] GI Biopsy 07/13/2014 3:58 PM EDT 07/13/2014 3:58 PM EDT GI Biopsy 07/13/2014 3:58 PM EDT 07/13/2014 3:58 PM EDT GI Biopsy 07/13/2014 3:58 PM EDT 07/13/2014 3:58 PM EDT L Karthik Osullivan MD PATHOLOGY/CYTOLOGY O RDMELISSA DURGA ORDOÑEZTADEOIUM [facility] [place] [address] * Specimen to Pathology (surgical or derm) (07/13/2014 3:58 PM EDT) AP Specimen 07/13/2014 3:58 PM EDT 07/13/2014 3:58 PM EDT Narrative CERNER MILLENNIUM - 07/13/2014 3:58 PM EDT Specimen requisition ordered. ??Separate Pathology report to follow L Karthik Osullivan MD PATHOLOGY/CYTOLOGY O CEE Performing Organization Address [facility] Co de Phone Number DURGA COLBERTIUM * Specimen to Pathology (surgical or derm) (07/13/2014 3:58 PM EDT) AP Specimen 07/13/2014 3:58 PM EDT 07/13/2014 3:58 PM EDT Narrative CERGIOVANNI MILLENNIUM - 07/13/2014 3:58 PM EDT Specimen requisition ordered. ??Separate Pathology report to follow L Karthik Osullivan MD PATHOLOGY/CYTOLOGY O CEE Performing Organization Address [facility] Co de Phone Number DURGA COLBERTIUM * Specimen to Pathology (surgical or derm) (07/13/2014 3:58 PM EDT) AP Specimen 07/13/2014 3:58 PM EDT 07/13/2014 3:58 PM EDT Narrative CERNER MILLENNIUM - 07/13/2014 3:58 PM EDT Specimen requisition ordered. ??Separate Pathology report to follow L Karthik Osullivan MD PATHOLOGY/CYTOLOGY O RDMELISSA Performing Organization Address [facility]/ZIP Co de Phone Number DURGA COLBERTIUM * COLONOSCOPY (07/13/2014 2:51 PM EDT) COLONOSCOPY [facility] Endoscopy Patient Name: Naya Rodriguez ? Procedure Date: 07/13/2014 2:51 PM ? Date of : 1950 ? Age: 64 ? Order #: [id number] ? Procedure: ? Colonoscopy Indications: ? Follow-up of left-sided chronic ? ulcerative colitis Providers: ? LAnalia Osullivan MD, Emiyl Quinn, ? RN, Luna Connors, RONY, Cam Ghosh ? Doug, Prosthetic Makeup Designer Referring MD: ?Maximilian Fall MD Medicines: ? [...] Glucose, POC 167 60 - 199 mg/dL [facility] Comment: Supplemental ranges: <140 mg/dL before meals <180 mg/dL all other times of the day Blood specimen (specimen) 07/13/2014 1:59 PM EDT 07/13/2014 1:59 PM EDT L Karthik Osullivan MD POINT OF CARE TEST O RDERABLES DURGA FREDERICK documented in this encounter Visit [...] (Intra-Procedure), Routine 1459 (Given - Provid er: Eimly Quinn RN)1504 (Given - Provider: Emily Quinn [...] Routine 1459 (Given - Provid er: Emily Quinn, RN)1502 (Given - Provider: Emily Quinn, RN)1520 (Given - Provider: Luna Connors RN - Comment: continuing sedation)1524 (Given - Provider: Luna Connors RN - Comment: continuing sedation)1528 (Given - Provider: Luna Connors RN - Comment: pt uncomfortable)1532 (Given - Provider: Luna Connors RN - Comment: pt uncomfortable)1540 (Given - Provider: Luna Connors RN - Comment: pt uncomfortable) documented in this encounter Care Teams Metal Container Maker Relationship Specialty Start Date End Date Maximilian Fall MD [address] [place] [address] PCP - General 10/01/11 02/13/21 documented as of this encounter
--- OUTSIDE RECORDS SUMMARY | 2024-06-29 23:36 | XMS_ITS | Encounter Summary ---
Author Organization [facility] [place] [address] Care Team Providers Care Transcription Specialist Name Role Phone Maximilian Fall MD Primary Care Provider [phone] Encounter Details Date Type Department Care Team (Late st Contact Info) Description 09/11/2014 10:00 AM EDT Follow-[place] [address] Dion Barlow MD [facility] [place] [address] Ulcerative colitis, other complication (Primary Dx) Discharge [...] Overview Note: ?? Colonoscopy 04/08/10 (Dr. Gomes [facility]) - inflammation only within the [...] 6 months or sooner. Davina Barlow MD [employer] Section of Gastroenterology [place] [address] documented in this encounter Plan of Treatment Upcoming Encounters Date Type Department Care Team (Late st Contact Info) Description 07/01/2024 Hospital Encounter Heart and Vascular Unit Level 3 [place] [address] Bishop Godinez MD [facility] [place] [address] 08/15/2024 9:00 AM EDT Office Visit [place] [address] Dion Barlow MD [facility] [place] [address] 09/01/2024 11:20 AM EDT Office Visit Dermatology at [facility] [address] [place] [address] Gómez Mercer MD [facility] DR EDDIE SANCHEZ[place] [address] 09/21/2024 2:45 PM EDT Office Visit [facility] [place] [address] Trung Hoyos MD [facility] [place] [address] documented as of this encounter Visit Diagnoses Diagnosis Ulcerative colitis, other complication- Primary documented in this encounter Care Teams Transcription Specialist Relationship Specialty Start Date End Date Maximilian Fall MD [address] [place] [address] PCP - General 10/01/11 02/13/21 documented as of this encounter
--- OUTSIDE RECORDS SUMMARY | 2024-06-29 23:36 | XMS_ITS | Encounter Summary ---
Author Organization [facility] [place] [address] Care Team Providers Care Pumper Hand Name Role Phone Maximilian Fall MD Primary Care Provider [phone] Encounter Details Date Type Department Care Team (Late st Contact Info) Description 03/02/2012 Orders [place] [address] Dion Barlow MD [facility] [place] [place] [address] Exam for clinical research (Primary Dx) Social [...] Vascular Unit Level 3 [place] [address] Bishop Godinez MD [facility] [place] [address] 08/15/2024 9:00 AM EDT Office [place] [address] Dion Barlow MD [facility] [place] [place] [address] 09/01/2024 11:20 AM EDT Office Visit Dermatology at [facility] [address] [place] [address] Gómez Mercer MD [facility] DR EDDIE [place] [address] 09/21/2024 2:45 PM EDT Office Visit [place] [address] Trung Hoyos MD [facility] [place] [address] documented as of this encounter Results * [...] trial documented in this encounter Care Teams Pumper Hand Relationship Specialty Start Date End Date Maximilian Fall MD [address] [place] [address] PCP - General 10/01/11 02/13/21 documented as of this encounter
--- OUTSIDE RECORDS SUMMARY | 2024-06-29 23:36 | XMS_ITS | Encounter Summary ---
Author Organization [facility] [place] [address] Care Team Providers Care Poolroom Table Attendant Name Role Phone Maximilian Fall MD Primary Care Provider [phone] Reason for Visit * Reason Comments Research Merit UC screening v isit Encounter Details Date Type Department Care Team (Late st Contact Info) Description 03/02/2012 7:30 AM EDT Office Visit Gastroenterology at [facility] [place] [address] Mica Gore, [facility] [place] [address] Ulcerative colitis (Primary Dx) Social History Tobacco [...] Schedule of event were reviewed with Mr. Rodriguez; He verbalized understanding of appointment dates and [...] Vascular Unit Level 3 [place] [address] Bishop Godinez MD [facility] [place] [address] 08/15/2024 9:00 AM EDT Office [place] [address] Dion Barlow MD [facility] [place] [address] 09/01/2024 11:20 AM EDT Office Visit Dermatology at [facility] [address] [place] [address] Gómez Mercer MD [facility] DR EDDIE SANCHE[place] [address] 09/21/2024 2:45 PM EDT Office Visit Pain and Spine Center at [facility] [place] [place] [address] Trung Hoyos MD [facility] [place] [address] documented as of this encounter Visit Diagnoses Diagnosis Ulcerative colitis- Primary Ulcerative colitis, unspecified documented in this encounter Care Teams Poolroom Table Attendant Relationship Specialty Start Date End Date Maximilian Fall MD [address] [place] [address] PCP - General 10/01/11 02/13/21 documented as of this encounter
--- OUTSIDE RECORDS SUMMARY | 2024-06-29 23:36 | XMS_ITS | Encounter Summary ---
Author Organization [facility] [place] [address] Care Team Providers Care Equal Opportunity Officer Name Role Phone Maximilian Fall MD Primary Care Provider [phone] Encounter Details Date Type Department Care Team (Latest Contact Info) Description 03/16/2012 12:32 PM EDT - 03/16/2012 3:00 PM EDT Hospital Encounter [place] [address] Enrico Malloy MD [facility] [place] [address] Discharge Disposition: Home Social History Tobacco Use [...] please contact your M. D. Please call [phone] BEFORE 5PM with any questions or concerns, AFTER 5PM call [phone] andask to speak to the Tree Care Foreman marble mason. * Patient Instructions* Enrico Malloy MD - 03/16/2012 1:27 PM EDT Please see Recommendations in the Provation procedure report which is documented in the procedural note in E-DH. * Attachments The following attachments cannot be sent through Care Everywhere. * SIGMOIDOSCOPY: WHAT TO EXPECT AT HOME (KAZAKH) documented in this encounter Medications at Time [...] of this encounter H&P Notes * Enrico Malloy MD - 03/16/2012 1:26 PM EDT Gastroenterology [...] Vascular Unit Level 3 [place] [address] Bishop Godinez MD [facility] [place] [address] 08/15/2024 9:00 AM EDT Office [place] [address] Dion Barlow MD [facility] GASTROENTEROLOGY [place], [place] [address] 09/01/2024 11:20 AM EDT Office Visit Dermatology at [place] [address] [place] [address] Gómez Mercer MD [facility] [address] 09/21/2024 2:45 PM EDT Office Visit [place] [address] Trung Hoyos MD [facility] PAIN MANAGEMENT [place], [place] [address] documented as of this encounter Procedures Procedure Name Priority Date/Time Associated Diagnosis Comments SURGICAL PATHOLOGY REPORT Routine 03/16/2012 4:52 PM EDT SPECIMEN TO PATHOLOGY Routine 03/16/2012 2:09 PM EDT FLEXIBLE SIGMOIDOSCOPY (WRVU 0.84) 03/16/2012 1:27 PM EDT study patient POCT GLUCOSE Routine 03/16/2012 1:16 PM EDT documented in this encounter Results * SURGICAL PATHOLOGY REPORT (03/16/2012 4:52 PM EDT) Surgical Pathology Report ? [facility] ? Provider: ?? ENRICO MALLOY ?Pt. Name: ?? RODRIGUEZNAYA ? Acc #: ?[id number] ?Pt. ? Col Date: ?? 03/16/2012 ? [...] Clinical History/Diagnosis: ? Patient with mild proctitis DURGA COLBERTIUM 03/16/2012 4:52 PM EDT Enrico Malloy MD PATHOLOGY/CYTOLOGY O CEE Performing Organization Address [facility] Co de Phone Number DURGA FREDERICK * Specimen to Pathology (surgical or derm) (03/16/2012 2:09 PM EDT) AP Specimen 03/16/2012 2:09 PM EDT 03/16/2012 2:09 PM EDT Narrative JO-ANNGIOVANNI COLBERTIUM - 03/16/2012 2:09 PM EDT Specimen requisition ordered. ??Separate Pathology report to follow Enrico Malloy MD PATHOLOGY/CYTOLOGY O CEE Performing Organization Address [facility] de Phone Number DURGA FREDERICK * POCT GLUCOSE LAB USE ONLY (03/16/2012 1:16 PM EDT) Glucose, POC 116 60 - 199 mg/dL JO-ANNGIOVANNI FREDERICK Comment: Supplemental ranges: <110 mg/dL before meals <200 mg/dL all other times of the day Blood specimen (specimen) 03/16/2012 1:16 PM EDT 03/16/2012 1:16 PM EDT Enrico Malloy MD POINT OF CARE TEST O CEE Performing Organization Address [facility] de Phone Number DURGA FREDERICK documented in this encounter Visit Diagnoses Not on filedocumented in this encounter Administered Medications Inactive Administered Medications - up to 3 most recent administrations Medication Order MAR Action Action Date Dose Rate Site sodium chloride 0.9% infusion 30 mL/hr, Intravenous, CONTINUOUS, Starting on Thu03/16/12 at 1315, Until Thu03/16/12 at 1854, Endoscopy [...] 50mcg/mL injection (CANCELED) ONCE PRN, Starting on e 03/16/12 at 1334, Until 03/16/12 at 1854, [...] RN) documented in this encounter Care Teams Equal Opportunity Officer Relationship Specialty Start Date End Date Maximilian Fall MD [address] [place] [address] [address] PCP - General 10/01/11 02/13/21 documented as of this encounter
--- OUTSIDE RECORDS SUMMARY | 2024-06-29 23:36 | XMS_ITS | Encounter Summary ---
Author Organization [facility] [place] [address] Care Team Providers Care Christmas Bell Ringer Name Role Phone Maximilian Fall MD Primary Care Provider [phone] Encounter Details Date Type Department Care Team (Late st Contact Info) Description 03/16/2012 2:30 PM EDT - 03/16/2012 3:30 PM EDT [place] [address] Enrico Tellez MD [facility] [place] [address] FLEXIBLE SIGMOIDOSCOPY (WRVU 0.84) Social History Tobacco [...] please contact your M. D. Please call [phone] BEFORE 5PM with any questions or concerns, AFTER 5PM call [phone] andask to speak to the Wellness Consultant workday financials consultant. * Patient Instructions* Enrico Tellez MD - 03/16/2012 1:27 PM EDT Please see Recommendations in the Provation procedure report which is documented in the procedural note in E-DH. * Attachments The following attachments cannot be sent through Care Everywhere. * SIGMOIDOSCOPY: WHAT TO EXPECT AT HOME (TUNISIAN) documented in this encounter Medications at Time [...] Vascular Unit Level 3 [place] [address] Bishop Godinez MD [facility] [place] [address] 08/15/2024 9:00 AM EDT Office [place] [address] Dion Barlow MD [facility] [place] [address] 09/01/2024 11:20 AM EDT Office Visit Dermatology at [place] [address] [place] [address] Gómez Mercer MD [facility] [address] 09/21/2024 2:45 PM EDT Office Visit [place] [address] Trung Hoyos MD [facility] [place] [address] documented as of this encounter Procedures Procedure Name Priority Date/Time Associated Diagnosis Comments SURGICAL PATHOLOGY REPORT Routine 03/16/2012 4:52 PM EDT SPECIMEN TO PATHOLOGY Routine 03/16/2012 2:09 PM EDT FLEXIBLE SIGMOIDOSCOPY (WRVU 0.84) 03/16/2012 1:27 PM EDT study patient POCT GLUCOSE Routine 03/16/2012 1:16 PM EDT documented in this encounter Results * SURGICAL PATHOLOGY REPORT (03/16/2012 4:52 PM EDT) Surgical Pathology Report ? [facility] ? Provider: ?? ENRICO TELLEZ ?Pt. Name: ?? SHANTNAYA ? Acc #: ?[id number] ?Pt. ? Col Date: ?? 03/16/2012 ? [...] Clinical History/Diagnosis: ? Patient with mild proctitis CERGIOVANNI COLBERTIUM 03/16/2012 4:52 PM EDT Enrico Tellez MD PATHOLOGY/CYTOLOGY O CEE Performing Organization Address [facility] de Phone Number DURGA FREDERICK * Specimen to Pathology (surgical or derm) (03/16/2012 2:09 PM EDT) AP Specimen 03/16/2012 2:09 PM EDT 03/16/2012 2:09 PM EDT Narrative JO-ANNGIOVANNI COLBERTIUM - 03/16/2012 2:09 PM EDT Specimen requisition ordered. ??Separate Pathology report to follow Enrico Tellez MD PATHOLOGY/CYTOLOGY O CEE Performing Organization Address [facility] de Phone Number DURGA FREDERICK * POCT GLUCOSE LAB USE ONLY (03/16/2012 1:16 PM EDT) Glucose, POC 116 60 - 199 mg/dL JOA-NNGIOVANNI COLBERTIUM Comment: Supplemental ranges: <110 mg/dL before meals <200 mg/dL all other times of the day Blood specimen (specimen) 03/16/2012 1:16 PM EDT 03/16/2012 1:16 PM EDT Enrico Tellez MD POINT OF CARE TEST O CEE Performing Organization Address [facility] de Phone Number DURGA FREDERICK [...] midazolam (VERSED) injection ONCE PRN, Starting on 03/16/12 at 1334, Until 03/16/12 at 1854, Sleep, Intra-Operative (Intra-Procedure), Routine Given [...] April Archibald RN)1337 (Given - Provider: April Archbiald RN) midazolam (VERSED) injection (CANCELED) ONCE PRN, Starting on 03/16/12 at 1334, Until 03/16/12 at 1854, Sleep, Intra-Operative (Intra-Procedure), Routine 1334 (Given - Provid er: April Archibald RN)1337 (Given - Provider: April Archibald RN)1348 (Given - Provider: April Archibald RN) documented in this encounter Care Teams Christmas Bell Ringer Relationship Specialty Start Date End Date Maximilian Fall MD [address] [place] [address] PCP - General 10/01/11 02/13/21 documented as of this encounter
--- OUTSIDE RECORDS SUMMARY | 2024-06-29 23:36 | XMS_ITS | Encounter Summary ---
Author Organization [facility] [place] [address] Care Team Providers Care Tube Depatcher Name Role Phone More Naylor MD Primary Care Provider [phone] Reason for Visit * Reason Comments Follow-up Encounter Details Date Type Department Care Team (Late st Contact Info) Description 04/02/2012 12:30 PM EDT Follow-[place] [address] Marcelle Weinberg APRN [facility] [place] [address] UC (ulcerative colitis) (Primary Dx) Discharge Disposition: [...] ??? Ulcerative colitis Colonoscopy 04/08/10 (Dr. Gomes [facility]) - inflammation only within the rectum and sigmoid; extent of the exam was to the hepatic flexure; biopsies proximal to the sigmoid nl Repeat exam 11/27/11 ([facility]): mildly active colitis in the sigmoid colon [...] CC: MORE NAYLOR MD [address] [facility] [address] documented in this encounter Plan of Treatment Upcoming Encounters Date Type Department Care Team (Late st Contact Info) Description 07/01/2024 Hospital Encounter Heart and Vascular Unit Level 3 [place] [address] Bishop Godinez MD [facility] [place] [address] 08/15/2024 9:00 AM EDT Office [place] [address] Dion Barlow MD [facility] [place] [address] 09/01/2024 11:20 AM EDT Office Visit Dermatology at [address] [phone] Gómez Mercer MD [facility] DR EDDIE SANCHEZ-DERMATOLOGY [place], [place] [address] 09/21/2024 2:45 PM EDT Office Visit [facility] [place] [address] Trung Hoyos MD [facility] [place] [address] documented as of this encounter Procedures Procedure [...] Hormone 4.77(H) 0.27 - 4.20 mcIU/mL DURGA COLBERTIUM Blood specimen (specimen) 09/20/2012 11:17 AM EDT 09/20/2012 11:23 AM EDT Narrative Resulting Agency Comment Spec In Lab L Karthik Barlow MD CHEMISTRY ORDERABLES DURGA COLBERTIUM * (ABNORMAL) DIFFERENTIAL, AUTOMATED (04/02/2012 1:39 PM [...] MD HEMATOLOGY ORDERABLE S DURGA FREDERICK * TPMT Enzyme (04/02/2012 1:39 PM EDT) TPMT Enzyme See Note CERNER MILLENNIUM Comment: Normal ??Activity. Please see scanned report in Chart Review under the Non-DH Laboratory Heading. Blood specimen (specimen) 04/02/2012 1:39 PM EDT 04/02/2012 2:50 PM EDT Narrative Resulting Agency Comment Spec In Lab L Karthik Barlow MD CHEMISTRY ORDERABLES DURGA COLBERTIUM * Lipase (04/02/2012 1:39 PM EDT) Lipase 23 0 - 60 unit/L CERNER MILLENNIUM Blood specimen (specimen) 04/02/2012 1:39 PM EDT 04/02/2012 1:48 PM EDT Narrative Resulting Agency Comment Spec In Lab L Karthik Barlow MD CHEMISTRY ORDERABLES Performing Organization Address [facility] de Phone Number [facility] * Amylase (04/02/2012 1:39 PM EDT) Amylase 32 28 - 100 unit/L CERNER MILLENNIUM Blood specimen (specimen) 04/02/2012 1:39 PM EDT 04/02/2012 1:48 PM EDT Narrative Resulting Agency Comment Spec In Lab L Karthik Barlow MD CHEMISTRY ORDERABLES Performing Organization Address [facility] de Phone Number [facility] * High Sensitivity CRP (04/02/2012 1:39 PM EDT) C-Reactive Protein High Sensitivity 3.1 mg/L CERNER MILLENNIUM Comment: Interpretations: 1) For cardiac risk assessment, [...] Barlow MD CHEMISTRY ORDERABLES Performing Organization Address [facility] Number [facility] * Sedimentation rate (04/02/2012 1:39 PM EDT) Sedimentation Rate Automated 12 0 - 15 mm/hr [facility] Blood specimen (specimen) 04/02/2012 1:39 PM EDT 04/02/2012 1:48 PM EDT Narrative Resulting Agency Comment Spec In Lab L Karthik Barlow MD HEMATOLOGY ORDERABLE S Performing Organization Address [facility] Number [facility] * (ABNORMAL) CMP w/fasting Glucose (04/02/2012 1:39 PM EDT) Glucose Fasting 158(H) 65 - 99 mg/dL [facility] Comment: ?Fasting* Glucose Interpretive Criteria Normal ?65-99 [...] of Diabetes Mellitus, Position Statement from the [place] [employer]. ??Diabetes Care, Volume 33, Supplement [...] Lab L Karthik Barlow MD CHEMISTRY ORDERABLES [facility] * (ABNORMAL) CBC (with Diff) (04/02/2012 1:39 [...] Platelet 231 145 - 370 x10(3)/mc L CERGIOVANNI ORDOÑEZENNIUM RDW Standard Deviation 44.7 35.0 - 46.0 fL CERNER MILLENNIUM RDW coefficient of variation 13.0 10.9 - 14.4 % CERNER MILLENNIUM Mean Platelet Volume 11.1 9.0 - 12.0 fL DURGA ORDOÑEZENNIUM Blood specimen (specimen) 04/02/2012 1:39 PM EDT 04/02/2012 1:48 PM EDT Narrative Resulting Agency Comment Spec In Lab L Karthik Barlow MD HEMATOLOGY ORDERABLE S DURGA FREDERICK documented in this encounter Visit Diagnoses Diagnosis UC (ulcerative colitis)- Primary Ulcerative colitis, unspecified documented in this encounter Care Teams Tube Depatcher Relationship Specialty Start Date End Date More Naylor MD [address] [place] [address] PCP - General 10/01/11 02/13/21 documented as of this encounter
--- OUTSIDE RECORDS SUMMARY | 2024-06-29 23:36 | XMS_ITS | Encounter Summary ---
Author Organization [facility] [place] [address] Care Team Providers Care Foam Fabricator Name Role Phone Maximilian Fall MD Primary Care Provider [phone] Encounter Details Date Type Department Care Team (Late st Contact Info) Description 03/02/2012 External [place] [address] Dion Barlow MD [facility] [place] [address] Social History Tobacco Use Types Packs/Day Years [...] Vascular Unit Level 3 [place] [address] Bishop Godinez MD [facility] [place] [address] 08/15/2024 9:00 AM EDT Office [place] [address] Dion Barlow MD [facility] [place] [address] 09/01/2024 11:20 AM EDT Office Visit Dermatology at [facility] [address] [place] [address] Gómez Mercer MD [facility] [place] [address] 09/21/2024 2:45 PM EDT Office Visit [place] [address] Trung Hoyos MD [facility] [place] [address] documented as of this encounter Procedures Procedure Name Priority Date/Time Associated Diagnosis Comments EXTERNAL LAB RESULTS Routine 03/02/2012 documented in this encounter Results * External Lab Results (03/02/2012) Blood specimen (specimen) 03/02/2012 Dion Barlow MD CHEMISTRY ORDERABLES documented in this encounter Visit Diagnoses Not on filedocumented in this encounter Care Teams Foam Fabricator Relationship Specialty Start Date End Date Maximilian Fall MD [address] [place] [address] [address] [place] [address] PCP - General 10/01/11 02/13/21 documented as of this encounter
--- OUTSIDE RECORDS SUMMARY | 2024-06-29 23:36 | XMS_ITS | Encounter Summary ---
Author Organization [facility] [place] [place] [address] Care Team Providers Care Tennis Desk Team Member Name Role Phone Maximilian Fall MD Primary Care Provider Encounter Details Date Type Department Care Team (Late st Contact Info) Description 09/30/2012 Telephone [place] [phone] Lilliana Reece RN Social History Tobacco Use [...] Vascular Unit Level 3 [place] [address] Bishop Godinez MD [facility] [place] [address] 08/15/2024 9:00 AM EDT Office Visit Gastroenterology at [place] [phone] Dion Barlow MD [facility] [place] [address] 09/01/2024 11:20 AM EDT Office Visit Dermatology at [address] [place] [place] [address] Gómez Mercer MD [facility] [place] [address] 09/21/2024 2:45 PM EDT Office Visit [place] [address] Trung Hoyos MD [facility] [place] [address] documented as of this encounter Visit Diagnoses Not on filedocumented in this encounter Care Teams Tennis Desk Team Member Relationship Specialty Start Date End Date Maximilian Fall MD [address] [facility] [address] [place] [address] PCP - General 10/01/11 02/13/21 documented as of this encounter
--- OUTSIDE RECORDS SUMMARY | 2024-06-29 23:36 | XMS_ITS | Encounter Summary ---
Author Organization [facility] [place] [address] Care Team Providers Care Copy Worker Name Role Phone Maximilian Fall MD Primary Care Provider [phone] Encounter Details Date Type Department Care Team (Late st Contact Info) Description 03/02/2012 External Results [place] [address] Dion Barlow MD [facility] [place] [address] Social History Tobacco Use Types [...] Vascular Unit Level 3 [place] [address] Bishop Godinez MD [facility] [place] [address] 08/15/2024 9:00 AM EDT Office Visit [place] [phone] Dion Barlow MD [facility] [place] [address] 09/01/2024 11:20 AM EDT Office Visit Dermatology at [facility] [address] [place] [address] Gómez Mercer MD [facility] [address] 09/21/2024 2:45 PM EDT Office Visit Pain [place] [address] Trung Hoyos MD [facility] [place] [address] documented as of this encounter Procedures Procedure Name Priority Date/Time Associated Diagnosis Comments EXTERNAL LAB RESULTS Routine 03/02/2012 documented in this encounter Results * External Lab Results (03/02/2012) Stool specimen (specimen) 03/02/2012 Dion Barlow MD CHEMISTRY ORDERABLES documented in this encounter Visit Diagnoses Not on filedocumented in this encounter Care Teams Copy Worker Relationship Specialty Start Date End Date Maximilian Fall MD [address] [place] [address] [address] [place] [address] PCP - General 10/01/11 02/13/21 documented as of this encounter
--- OUTSIDE RECORDS SUMMARY | 2024-06-29 23:36 | XMS_ITS | Encounter Summary ---
Author Organization [facility] [place] [address] Care Team Providers Care Welder First Class Name Role Phone More Naylor MD Primary Care Provider [phone] Reason for Visit * Reason Comments Ulcerative Colitis Encounter Details Date Type Department Care Team (Late st Contact Info) Description 04/21/2012 1:30 PM EDT Follow-Up [place] [phone] Dion Barlow MD [facility] [place] [address] Ulcerative colitis (Primary Dx) Discharge Disposition: Home [...] ??? Ulcerative colitis Colonoscopy 04/08/10 (Dr. Gomes [facility]) - inflammation only within the rectum and sigmoid; extent of the exam was to the hepatic flexure; biopsies proximal to the sigmoid nl Repeat exam 11/27/11 ([facility] mildly active colitis in the sigmoid colon [...] has left-sided ulcerative colitis with persistently active mwhi-pe-szoecwon symptoms andmildly active disease endoscopically. He failed [...] CC: MORE NAYLOR MD [address] [facility] [address] documented in this encounter Plan of Treatment Upcoming Encounters Date Type Department Care Team (Late st Contact Info) Description 07/01/2024 Hospital Encounter Heart and Vascular Unit Level 3 [place] [address] Bishop Godinez MD [facility] [place] [address] 08/15/2024 9:00 AM EDT Office Visit Gastroenterology at [place] [phone] Dion Barlow MD [facility] [place] [address] 09/01/2024 11:20 AM EDT Office Visit Dermatology at [place] [address] [place] [address] Gómez Mercer MD [facility] [place] [address] 09/21/2024 2:45 PM EDT Office Visit Pain and Spine Center at [place] [phone] Trung Hoyos MD [facility] [place] [address] documented as of this encounter Visit Diagnoses Diagnosis Ulcerative colitis- Primary Ulcerative colitis, unspecified documented in this encounter Care Teams Welder First Class Relationship Specialty Start Date End Date More Naylor MD [address] [place] [address] PCP - General 10/01/11 02/13/21 documented as of this encounter
--- OUTSIDE RECORDS SUMMARY | 2024-06-29 23:36 | XMS_ITS | Encounter Summary ---
Author Organization [facility] [place] [address] Care Team Providers Care Test Engineering Technician Name Role Phone Maximilian Fall MD Primary Care Provider Encounter Details Date Type Department Care Team (Late st Contact Info) Description 03/02/2012 External Results [place] [address] iDon Barlow MD [facility] [place] [address] Social History Tobacco Use Types [...] Level 3 [place] [address] Bishop Godinez MD [facility] [place] [address] 08/15/2024 9:00 AM EDT Office Visit [place] [phone] Dion Barlow MD [facility] [place] [address] 09/01/2024 11:20 AM EDT Office Visit Dermatology at [facility] [address] [place] [address] Gómez Mercer MD [facility] [address] 09/21/2024 2:45 PM EDT Office Visit [facility] [place] [address] Trung Hoyos MD [facility] [place] [address] documented as of this encounter Procedures Procedure Name Priority Date/Time Associated Diagnosis Comments EXTERNAL LAB RESULTS Routine 03/04/2012 documented in this encounter Results * External Lab Results (03/04/2012) Blood specimen (specimen) Dion Barlow MD CHEMISTRY ORDERABLES documented in this encounter Visit Diagnoses Not on filedocumented in this encounter Care Teams Test Engineering Technician Relationship Specialty Start Date End Date Maximilian Fall MD [address] [place] [address] PCP - General 10/01/11 02/13/21 documented as of this encounter
--- OUTSIDE RECORDS SUMMARY | 2024-06-29 23:36 | XMS_ITS | Encounter Summary ---
Author Organization [facility] Address [facility] [place] [address] Care Team Providers Care Client Engagement Specialist Name Role Phone Maximilian Fall MD Primary Care Provider [phone] Encounter Details Date Type Department Care Team (Late st Contact Info) Description 09/11/2014 Orders [place] [address] Bethany Trivedi RN Other ulcerative colitis (Primary [...] Vascular Unit Level 3 [place] [address] Bishop Godinez MD [facility] [place] [address] 08/15/2024 9:00 AM EDT Office Visit [place] [address] Dion Barlow MD [facility] [place] [address] 09/01/2024 11:20 AM EDT Office Visit Dermatology at [facility] [address] [place] [address] Gómez Mercer MD [facility] [address] [place] [address] 09/21/2024 2:45 PM EDT Office Visit Pain and Spine Center at [facility] [place] [address] Trung Hoyos MD [facility] [place] [address] documented as of this encounter Visit Diagnoses Diagnosis Other ulcerative colitis- Primary documented in this encounter Care Teams Client Engagement Specialist Relationship Specialty Start Date End Date Maximilian Fall MD [address] [place] [address] PCP - General 10/01/11 02/13/21 documented as of this encounter
--- OUTSIDE RECORDS SUMMARY | 2024-06-29 23:36 | XMS_ITS | Encounter Summary ---
Author Organization [facility] [place] [address] Care Team Providers Care Cloud Engagement Partner Name Role Phone More Naylor MD Primary Care Provider [phone] Reason for Visit * Reason Comments Follow-up Encounter Details Date Type Department Care Team (Late st Contact Info) Description 09/20/2012 10:00 AM EDT Follow-[place] [address] Dion Barlow MD [facility] [place] [address] Ulcerative colitis (Primary Dx); Dyspepsia; UC (ulcerative [...] ??? Ulcerative colitis Colonoscopy 04/08/10 (Dr. Gomes [facility]) - inflammation only within the rectum and sigmoid; extent of the exam was to the hepatic flexure; biopsies proximal to the sigmoid nl Repeat exam 11/27/11 ([facility] mildly active colitis in the sigmoid colon [...] has left-sided ulcerative colitis with persistently active gxhi-fc-rqitlccz symptoms andmildly active disease endoscopically. His colitis [...] CC: MORE NAYLOR MD [address] [facility] [address] documented in this encounter Plan of Treatment Upcoming Encounters Date Type Department Care Team (Late st Contact Info) Description 07/01/2024 Hospital Encounter Heart and Vascular Unit Level 3 [place] [address] Bishop Godinez MD [facility] [place] [address] 08/15/2024 9:00 AM EDT Office Visit [place] [phone] Dion Barlow MD [facility] [place] [address] 09/01/2024 11:20 AM EDT Office Visit Dermatology at [address] [address] Gómez Mercer MD [facility] [place] [address] 09/21/2024 2:45 PM EDT Office Visit Pain [place] [address] Trung Hoyos MD [facility] [place] [address] documented as of this encounter Procedures Procedure [...] Gran Absolute 0.02 0.00 - 0.05 x10(3)/mcL [facility]ER[facility] ORDOÑEZENNIUM Blood specimen (specimen) 09/20/2012 11:17 AM EDT 09/20/2012 11:23 AM EDT L Karthik Barlow MD HEMATOLOGY ORDERABLE S Performing Organization Address [facility] Co de Phone Number [facility] * (ABNORMAL) TSH (09/20/2012 11:17 AM EDT) Thyroid Stimulating Hormone 4.77(H) 0.27 - 4.20 mcIU/mL [facility] COLBERTI[facility] Blood specimen (specimen) 09/20/2012 11:17 AM EDT 09/20/2012 11:23 AM EDT Narrative Resulting Agency Comment Spec In Lab L Karthik Barlow MD CHEMISTRY ORDERABLES Performing Organization Address [facility] Phone Number [facility] * Lipase (09/20/2012 11:17 AM EDT) Lipase 32 0 - 60 unit/L [facility] COLBERTIUM Blood specimen (specimen) 09/20/2012 11:17 AM EDT 09/20/2012 11:23 AM EDT Narrative Resulting Agency Comment Spec In Lab L Karthik Barlow MD CHEMISTRY ORDERABLES Performing Organization Address [facility] Phone Number [facility] * High Sensitivity CRP (09/20/2012 11:17 AM EDT) C-Reactive Protein High Sensitivity 3.7 mg/L [facility] Comment: Interpretations: 1) For cardiac risk assessment, [...] Karthik Barlow MD CHEMISTRY ORDERABLES [facility] * (ABNORMAL) CMP w/fasting Glucose (09/20/2012 11:17 AM EDT) Glucose Fasting 110(H) 65 - 99 mg/dL [facility] Comment: ?Fasting* Glucose Interpretive Criteria Normal ?65-99 [...] of Diabetes Mellitus, Position Statement from the [place] [employer]. ??Diabetes Care, Volume 33, Supplement 1, Nov 2009 Blood Urea Nitrogen 13 10 - 20 mg/dL CERNER MILLENNIUM Creatinine 0.81 0.80 - 1.50 mg/dL CERNER MILLENNIUM Comment: Please note that the pediatric reference intervals supplied above were not validated at [facility]. Results from pediatric patients should be interpreted [...] NA, Jasmin AK, Edson TS, Diogenes AD, Shanellke ALMA ROSA. Relative performance of the MDRD and CKD-EPI equations for estimating glomerular filtration rate among patients with varied clinical presentations. Clin J Am Soc Nephrol;6:1963-72. Blood specimen (specimen) 09/20/2012 11:17 AM EDT 09/20/2012 11:23 AM EDT Narrative Resulting Agency Comment Spec In Lab L Karthik Barlow MD CHEMISTRY ORDERABLES [facility] * (ABNORMAL) CBC (with Diff) (09/20/2012 11:17 AM EDT) White Blood Cell 6.2 4.0 - 10.0 x10(3)/mc L D[facility] MILLTADEOIUM Red Blood Cell 4.07(L) 4.63 - 6.08 x10(6)/mc L [facility] MILLTADEOIUM Hemoglobin 13.5(L) 13.7 - 17.5 gm/dL [facility] Hematocrit 40.5 40.0 - 51.0 % CERNER MILLENNIUM Mean Cell Volume 99.5(H) 79.0 - 92.0 fL CERNER MILLENNIUM Mean Cell Hemoglobin 33.2(H) 25.6 - 32.2 pg CERNER MILLENNIUM Mean Cell Hemoglobin Concentration 33.3 32.0 - 36.5 gm/dL CERNER MILLENNIUM Platelet 227 145 - 370 x10(3)/mc L CERNER MILLENNIUM RDW Standard Deviation 45.2 35.0 - 46.0 fL CERNER MILLENNIUM RDW coefficient of variation 12.5 10.9 - 14.4 % CERNER MILLENNIUM Mean Platelet Volume 11.2 9.0 - 12.0 fL CERNER MILLENNIUM Blood specimen (specimen) 09/20/2012 11:17 [...] unspecified documented in this encounter Care Teams Cloud Engagement Partner Relationship Specialty Start Date End Date More Naylor MD [address] [place] [address] PCP - General 10/01/11 02/13/21 documented as of this encounter
--- OUTSIDE RECORDS SUMMARY | 2024-06-29 23:36 | XMS_ITS | Encounter Summary ---
Author Organization [facility] [place] [address] Care Team Providers Care Holistic Nutritionist Name Role Phone Maximilian Fall MD Primary Care Provider [phone] Encounter Details Date Type Department Care Team (Late st Contact Info) Description 10/01/2012 4:15 PM EST - 10/01/2012 4:45 PM EST Surgery [place] [address] Dion Osullivan MD [facility] [place] [address] UPPER GI ENDOSCOPY Social History Tobacco Use [...] GI ENDOSCOPY: WHAT TO EXPECT AT HOME (SAMOAN) documented in this encounter Medications at Time [...] Osullivan MD - 10/01/2012 5:07 PM EST [employer] [facility] [employer] Operative Note Patient Name: Naya Rodriguez : [id number] MR#: [id number] Case Date: 10/01/2012 Surgeon: Surgeon(s) and Role: [...] Vascular Unit Level 3 [place] [address] Bishop Godinez MD [facility] [place] [address] 08/15/2024 9:00 AM EDT Office Visit Gastroenterology at [place] [phone] Dion Osullivan MD [facility] [place] [address] 09/01/2024 11:20 AM EDT Office Visit Dermatology at [address] [address] Gómez Mercer MD [facility] DR EDD[place] [address] 09/21/2024 2:45 PM EDT Office Visit Pain [place] [address] Trung Hoyos MD [facility] [place] [address] documented as of this encounter Procedures Procedure [...] 5:54 PM EST) Surgical Pathology Report ? [facility] ? Provider: ?? Dion OSULLIVAN ?Pt. Name: ?? NAYA RODRIGUEZ ? Acc #: ?[id number] ?Pt. ? Col Date: ?? 10/01/2012 ? [...] EST L Karthik Osullivan MD PATHOLOGY/CYTOLOGY O ECE [facility] * Specimen to Pathology (surgical or derm) (10/01/2012 5:09 PM EST) AP Specimen 10/01/2012 5:09 PM EST 10/01/2012 5:09 PM EST Narrative [facility] - 10/01/2012 5:09 PM EST Specimen requisition ordered. ??Separate Pathology report to follow L Karthik Osullivan MD PATHOLOGY/CYTOLOGY O [facility] * UPPER GI ENDOSCOPY (10/01/2012 4:41 PM EST) UPPER GI ENDOSCOPY [facility] Endoscopy Patient Name: Naya Rodriguez ? Procedure Date: 10/01/2012 4:41 PM ? N: [id number] ? Date of : 1950 ? Age: 62 ? Order #: [id number] ? Procedure: ? Upper GI endoscopy Indications: ? Epigastric abdominal pain Providers: ? L Karthik Osullivan MD, Alannah Singletary, ? RN, Mona Osborne, Community Relations Officer Referring MD: ?Maximilian Fall MD Medicines: ? [...] SURGICAL ORD MELISSA Performing Organization Address [facility] Co de Phone Number [facility] * POCT GLUCOSE (10/01/2012 4:27 PM EST) Glucose, POC 84 60 - 199 mg/dL CERNER MILLENNIUM Comment: Supplemental ranges: <110 mg/dL before meals <200 mg/dL all other times of the day Blood specimen (specimen) 10/01/2012 4:27 PM EST 10/01/2012 4:27 PM EST L Karthik Osullivan MD POINT OF CARE TEST O RDMELISSA Performing Organization Address [facility] Co de Phone Number CERNER MILLENNIUM documented [...] Thu10/01/12 at 2031, Pain, Intra-Operative (Intra-Procedure), Routine 1653 (Given - Provid er: Alannah Singletary RN)165 (Given - Provider: Alannah Singletary RN)165 (Given - Provider: Alannah Singletary RN) midazolam (VERSED) injection (CANCELED) ONCE PRN, Starting on Thu10/01/12 at 1654, Until Thu10/01/12 at 2031, Sleep, Intra-Operative (Intra-Procedure), Routine 1653 (Given - Provid er: Alannah Singletary RN)165 (Given - Provider: Alannah Singletary RN) documented in this encounter Care Teams Holistic Nutritionist Relationship Specialty Start Date End Date Maximilian Fall MD [address] [place] [address] PCP - General 10/01/11 02/13/21 documented as of this encounter
--- OUTSIDE RECORDS SUMMARY | 2024-06-29 23:36 | XMS_ITS | Encounter Summary ---
Author Organization [facility] [place] [address] Care Team Providers Care Parts Picker Name Role Phone Maximilian Fall MD Primary Care Provider [phone] Reason for Visit * Reason Onset Date Comments Medication Refill 11/03/2013 Encounter Details Date Type Department Care Team (Late Contact Info) Description 11/03/2013 Ref[place] [address] Dion Barlow MD [facility] [place] [address] Social History Tobacco Use Types Packs/Day Years [...] with Dr Barlow and it should be [id number] take 2 tabs twice a day or 2GM documented in this encounter Plan of Treatment Upcoming Encounters Date Type Department Care Team (Late st Contact Info) Description 07/01/2024 Hospital Encounter Heart and Vascular Unit Level 3 [place] [address] Bishop Godinez MD [facility] [place] [address] 08/15/2024 9:00 AM EDT Office Visit Gastroenterology at [place] [phone] Dion Barlow MD [facility] [place] [address] 09/01/2024 11:20 AM EDT Office Visit Dermatology at [place] [address] [place] [address] Gómez Mercer MD [facility] [place] [address] 09/21/2024 2:45 PM EDT Office Visit Pain and Spine Center at [place] [phone] Trung Hoyos MD [facility] [place] [address] documented as of this encounter Visit Diagnoses Not on filedocumented in this encounter Care Teams Parts Picker Relationship Specialty Start Date End Date Maximilian Fall MD [address] [place] [address] PCP - General 10/01/11 02/13/21 documented as of this encounter
--- OUTSIDE RECORDS SUMMARY | 2024-06-29 23:37 | XMS_ITS | Encounter Summary ---
Author Organization [facility] [place] [address] Care Team Providers Care Local Bulk Driver Name Role Phone Maximilian Fall MD Primary Care Provider [phone] Encounter Details Date Type Department Care Team (Late st Contact Info) Description 11/27/2011 1:00 PM EST - 11/27/2011 1:45 PM EST Surgery [place] [address] Dion Osullivan MD [facility] [place] [address] COLONOSCOPY, DIAGNOSTIC (WRVU 3.26) Social History Tobacco [...] - 11/27/2011 2:37 PM EST Please call [phone], before 5pm with problems, questions or concerns, after 5pm call the Hospital at [phone] and ask to speak to the High School Director installation superintendent and the remote computer terminal operator will contactthat person for you. Discharge instructions reviewed with patient who expresses understanding. * Patient Instructions* Dion Osullivan MD - 11/27/2011 1:07 PM EST Please see Recommendations in the Provation procedure report which is documented in the procedural note in E-DH. * Attachments The following attachments cannot be sent through Care Everywhere. * COLONOSCOPY: WHAT TO EXPECT AT HOME (WOLOF) documented in this encounter Medications at Time [...] MD - 11/27/2011 1:06 PM EST [facility] [place] Patient Name: Naya Rodriguez : [id number] MR#: [id number] Case Date: 11/27/2011 Surgeon: Surgeon(s) and Role: * Dion OSULLIVAN MD - Primary Please see the Provation procedure report in the Procedures tab in eDH. documented in this encounter Plan of Treatment Upcoming Encounters Date Type Department Care Team (Late st Contact Info) Description 07/01/2024 Hospital Encounter Heart and Vascular Unit Level 3 [place] [address] Bishop Godinez MD [facility] [place] [address] 08/15/2024 9:00 AM EDT Office Visit Gastroenterology at [place] [phone] Dion Osullivan MD [facility] [place] [address] 09/01/2024 11:20 AM EDT Office Visit Dermatology at [address] [address] Gómez Mercer MD [facility] DR EDDIE [place] [address] 09/21/2024 2:45 PM EDT Office Visit Pain [place] [address] Trung Hoyos MD [facility] [place] [address] documented as of this encounter Procedures Procedure [...] 4:38 PM EST) Surgical Pathology Report ? [facility] ? Provider: ?? Dion OSULLIVAN ?Pt. Name: ?? NAYA RODRIGUEZ ? Acc #: ?[id number] ?Pt. ? Col Date: ?? 11/27/2011 ?/Sex: [...] Stephen, rubbery mucosal polyp, the larger ? [facility] ? Provider: ?? Dion OSULLIVAN ?Pt. Name: ?? NAYA RODRIGUEZ ? Acc #: ?[id number] ?Pt. ? Col Date: ?? 11/27/2011 ?/Sex: [...] 61 YO with recent diagnosis of [facility] 11/27/2011 4:38 PM EST Dion Osullivan MD PATHOLOGY/CYTOLOGY O RDERABLES [facility] * Specimen to Pathology (surgical or derm) (11/27/2011 1:53 PM EST) AP Specimen 11/27/2011 1:53 PM EST 11/27/2011 1:53 PM EST Narrative [facility] - 11/27/2011 1:53 PM EST Specimen requisition ordered. ??Separate Pathology report to follow L Karthik Osullivan MD PATHOLOGY/CYTOLOGY O RDMELISSA Performing Organization Address City/[facility] Co de Phone Number [facility] * Specimen to Pathology (surgical or derm) (11/27/2011 1:53 PM EST) AP Specimen 11/27/2011 1:53 PM EST 11/27/2011 1:53 PM EST Narrative [facility] - 11/27/2011 1:53 PM EST Specimen requisition ordered. ??Separate Pathology report to follow L Karthik Osulliavn MD PATHOLOGY/CYTOLOGY O CEE Performing Organization Address [facility] Co de Phone Number [facility] * Specimen to Pathology (surgical or derm) (11/27/2011 1:53 PM EST) AP Specimen 11/27/2011 1:53 PM EST 11/27/2011 1:53 PM EST Narrative [facility] - 11/27/2011 1:53 PM EST Specimen requisition ordered. ??Separate Pathology report to follow L Karthik Osullivan MD PATHOLOGY/CYTOLOGY O CEE Performing Organization Address [facility] Co de Phone Number [facility] * COLONOSCOPY (11/27/2011 1:01 PM EST) COLONOSCOPY [facility] Endoscopy Patient Name: Naya Rodriguez ? Procedure Date: 11/27/2011 01:01:31 PM ? N: [id number] ? Date of : 1950 ? Age: 61 ? Procedure: ? Colonoscopy Indications: ? Follow-up of left-sided chronic ? ulcerative colitis Providers: ? L Karthik Osullivan MD, Tyron Cee, ? RN, Qing López, Paper Cup Machine Operator Referring MD: ?Maximilian Fall MD Medicines: ? [...] 50 mL/hr, Intravenous, CONTINUOUS, Starting on Tresa 11/27/12 at 1230, Until Tresa 12 at 1701, Endoscopy (Day of Procedure) New Bag 11/27/2011 12:30 PM EST 50 mL/hr 50 mL/hr documented in this encounter Active and Recently Administered Medications Times are shown in EST. Continuous Medication Order 11/25/2011 11/26/2011 11/27/2011 sodium chloride 0.9% infusion (CANCELED) 50 mL/hr, Intravenous, CONTINUOUS, Starting on Tresa 12 at 1230, Until Tresa 11/27/11 at 1701, Endoscopy (Day of Procedure) 1230 (New Bag - Prov ider: Madalyn Harley RN) PRN Medication Order 11/25/2011 11/26/2011 11/27/2011 fentaNYL 50mcg/mL injection (CANCELED) ONCE PRN, Starting on Tresa 11/27/11 at 1308, Until Tresa 12 at 1701, Pain, Intra-Operative (Intra-Procedure), Routine 1308 [...] injection (CANCELED) ONCE PRN, Starting on Tresa 12 at 1308, Until Tresa 11/27/11 at 1701, Sleep, Intra-Operative (Intra-Procedure), Routine 1308 (Given - Provid er: Tyron Cee RN - Comment: see fentanyl same time)1311 (Given - Provider: Tyron Cee RN - Comment: see fentanyl same time)1320 (Given - Provider: Tyron Cee RN - Comment: see fentanyl same time) documented in this encounter Care Teams Local Bulk Driver Relationship Specialty Start Date End Date Maximilian Fall MD [address] [place] [address] PCP - General 10/01/11 02/13/21 documented as of this encounter
--- OUTSIDE RECORDS SUMMARY | 2024-06-29 23:37 | XMS_ITS | Encounter Summary ---
Author Organization [facility] [place] [address] Care Team Providers Care Program Project Analyst Name Role Phone More Naylor MD Primary Care Provider [phone] Reason for Visit * Reason Comments GI Problem Encounter Details Date Type Department Care Team (Late st Contact Info) Description 10/01/2011 9:30 AM EST Office [place] [address] Dion Barlow MD [facility] [place] [address] Ulcerative colitis (Primary Dx) Discharge Disposition: Home [...] 1. Stool studies to be done at [facility] - will give instructions and a [...] ??? Ulcerative colitis Colonoscopy 04/08/10 (Dr. Gomes [facility]) - inflammation only within [...] has three kids. 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 He quit smoking in 1991 after 30 [...] adenopathy and no thyromegaly. HEENT: PERRL, EOMI, EMERGENCY VEHICLE OPERATIONS INSTRUCTOR and OP clear without ulceration or lesions. [...] 1. Stool studies to be done at [facility] - will give instructions, an order, [...] questions 50 minutes of this 60 minute [id number] encounter were spent counseling the patient in the issuesoutlined above. Davina Barlow MD Applications Developerimpersonator character Section of [place]enter[place] [address] [email or web address] CC: MORE NAYLOR MD [address] [facility] [address] documented in this encounter Plan of Treatment Upcoming Encounters Date Type Department Care Team (Late st Contact Info) Description 07/01/2024 Hospital Encounter Heart and Vascular Unit Level 3 [place] [phone] Bishop Godinez MD [facility] [place] [address] 08/15/2024 9:00 AM EDT Office [place] [phone] Dion Barlow MD [facility] [place] [address] 09/01/2024 11:20 AM EDT Office Visit Dermatology at [facility] [address] [place] [address] Gómez Mercer MD [facility] [place] [address] 09/21/2024 2:45 PM EDT Office Visit Pain and Spine Center at [facility] [place] [address] Trung Hoyos MD [facility] [place] [address] documented as of this encounter Visit Diagnoses Diagnosis Ulcerative colitis- Primary Ulcerative colitis, unspecified documented in this encounter Care Teams Program Project Analyst Relationship Specialty Start Date End Date More Naylor MD [address] [place] [address] PCP - General 10/01/11 02/13/21 documented as of this encounter
--- OUTSIDE RECORDS SUMMARY | 2024-06-29 23:37 | XMS_ITS | Encounter Summary ---
Author Organization [facility] [place] [address] Care Team Providers Care Manager City Name Role Phone More Naylor MD Primary Care Provider [phone] Reason for Visit * Reason Comments Follow-up Encounter Details Date Type Department Care Team (Late st Contact Info) Description 01/28/2012 3:00 PM EST Follow-[place] [phone] Dion Barlow MD [facility] [place] [address] Ulcerative colitis (Primary Dx) Discharge Disposition: Home [...] Ulcerative colitis Colonoscopy 04/08/10 (Dr. Gomes [facility]) - inflammation only within the rectum and sigmoid; extent of the exam was to the hepatic flexure; biopsies proximal to the sigmoid nl Repeat exam 11/27/11 ([facility]): mildly active colitis in the sigmoid colon [...] first time since his colonoscopy in early [facility]. At that time, he had a patch [...] sooner of symptoms worsen. Davina Barlow MD Sld Inclusion Teacherstaff design engineer Section of Gastroenterology [place] [address] CC: MORE NAYLOR MD [address] [facility] [address] documented in this encounter Plan of Treatment Upcoming Encounters Date Type Department Care Team (Late st Contact Info) Description 07/01/2024 Hospital Encounter Heart and Vascular Unit Level 3 Wing B at [place] [phone] Bishop Godinez MD [facility] [place] [address] 08/15/2024 9:00 AM EDT Office [place] [address] Dion Barlow MD [facility] [place] [address] 09/01/2024 11:20 AM EDT Office Visit Dermatology at [address] [address] Gómez Mercer MD [facility] [place] [address] 09/21/2024 2:45 PM EDT Office Visit Pain and Spine Center at [address] Trung Hoyos MD [facility] [place] [address] documented as of this encounter Visit Diagnoses Diagnosis Ulcerative colitis- Primary Ulcerative colitis, unspecified documented in this encounter Care Teams Manager City Relationship Specialty Start Date End Date More Naylor MD [address] [place] [address] PCP - General 10/01/11 02/13/21 documented as of this encounter
--- OUTSIDE RECORDS SUMMARY | 2024-06-29 23:37 | XMS_ITS | Encounter Summary ---
Author Organization [facility] [place] [address] Care Team Providers Care Corrugated Sheet Material Sheeter Name Role Phone Maximilian Fall MD Primary Care Provider [phone] Encounter Details Date Type Department Care Team (Latest Contact Info) Description 11/27/2011 11:49 AM EST - 11/27/2011 2:45 PM EST Hospital En[place] [address] Dion Osullivan MD [facility] [place] [address] Discharge Disposition: Home Social History Tobacco Use [...] - 11/27/2011 2:37 PM EST Please call [phone], before 5pm with problems, questions or concerns, after 5pm call the Hospital at [phone] and ask to speak to the Insurance Verification Specialist manager corporate responsibility and the feather drying machine operator will contactthat person for you. Discharge instructions reviewed with patient who expresses understanding. * Patient Instructions* Dion Osullivan MD - 11/27/2011 1:07 PM EST Please see Recommendations in the Provation procedure report which is documented in the procedural note in E-DH. * Attachments The following attachments cannot be sent through Care Everywhere. * COLONOSCOPY: WHAT TO EXPECT AT HOME ([place]) documented in this encounter Medications at Time [...] Osullivan MD - 11/27/2011 1:06 PM EST [facility] Operative Note Patient Name: Naya Rodriguez : [id number] MR#: [id number] Case Date: 11/27/2011 Surgeon: Surgeon(s) and Role: * Dion OSULLIVAN MD - Primary Please see the Provation procedure report in the Procedures tab in eDH. documented in this encounter Plan of Treatment Upcoming Encounters Date Type Department Care Team (Late st Contact Info) Description 07/01/2024 Hospital Encounter Heart and Vascular Unit Level 3 [place] [address] Bishop Godinez MD [facility] [place] [address] 08/15/2024 9:00 AM EDT Office Visit Gastroenterology at [place] [phone] Dion Osullivan MD [facility] [place] [address] 09/01/2024 11:20 AM EDT Office Visit Dermatology at [address] [phone] Gómez Mercer MD [facility] DR [place] [address] 09/21/2024 2:45 PM EDT Office Visit Pain and Spine Center at [place] [phone] Trung Hoyos MD [facility] [place] [address] documented as of this encounter Procedures Procedure [...] 4:38 PM EST) Surgical Pathology Report ? [facility] ? Provider: ?? Dion OSULLIVAN ?Pt. Name: ?? SHANT NAYA M ? Acc #: ?[id number] ?Pt. ? Col Date: ?? 11/27/2011 ?/Sex: [...] ? VMS ? 12/04/11 Verified by: ? Lisovsky MD, Dilip ? Pathologist ? (Electronic Signature) ? The [...] Stephen, rubbery mucosal polyp, the larger ? [facility] ? Provider: ?? Dion OSULLIVAN ?Pt. Name: ?? NAAY RODRIGUEZ ? Acc #: ?[id number] ?Pt. ? Col Date: ?? 11/27/2011 ?/Sex: [...] YO with recent [facility] 11/27/2011 4:38 PM EST L Karthik Osullivan MD PATHOLOGY/CYTOLOGY O RDERABLES [facility] * Specimen to Pathology (surgical or derm) (11/27/2011 1:53 PM EST) AP Specimen 11/27/2011 1:53 PM EST 11/27/2011 1:53 PM EST N[facility]ative [facility] - 11/27/2011 1:53 PM EST Specimen requisition ordered. ??Separate Pathology report to follow L Karthik Osullivan MD PATHOLOGY/CYTOLOGY O CEE [facility] * Specimen to Pathology (surgical or derm) (11/27/2011 1:53 PM EST) AP Specimen 11/27/2011 1:53 PM EST 11/27/2011 1:53 PM EST Narrative [facility] - 11/27/2011 1:53 PM EST Specimen requisition ordered. ??Separate Pathology report to follow L Karthik Osullivan MD PATHOLOGY/CYTOLOGY O CEE [facility] * Specimen to Pathology (surgical or derm) (11/27/2011 1:53 PM EST) AP Specimen 11/27/2011 1:53 PM EST 11/27/2011 1:53 PM EST Narrative [facility] - 11/27/2011 1:53 PM EST Specimen requisition ordered. ??Separate Pathology report to follow L Karthik Osullivan MD PATHOLOGY/CYTOLOGY O ECE [facility] * COLONOSCOPY (11/27/2011 1:01 PM EST) COLONOSCOPY [facility] Endoscopy Patient Name: Naya Rodriguez ? Procedure Date: 11/27/2011 01:01:31 PM ? [facility]: [id number] ? Date of : 1950 ? Age: 61 ? Procedure: ? Colonoscopy Indications: ? Follow-up of left-sided chronic ? ulcerative colitis Providers: ? L Karthik Osullivan MD, Tyron Cee, ? RN, Qing López, Network Control Operators Supervisor Referring MD: ?Maximilian Fall MD Medicines: [...] time) documented in this encounter Care Teams Corrugated Sheet Material Sheeter Relationship Specialty Start Date End Date Maximilian Fall MD [address] [place] [address] PCP - General 10/01/11 02/13/21 documented as of this encounter
--- OUTSIDE RECORDS SUMMARY | 2024-06-29 23:37 | XMS_ITS | Encounter Summary ---
Author Organization [facility] [place] [address] Care Team Providers Care Insurance Healthcare Representative Name Role Phone More Naylor MD Primary Care Provider [phone] Reason for Visit * Reason Comments Follow-up Encounter Details Date Type Department Care Team (Late st Contact Info) Description 11/05/2011 2:00 PM EST Follow-[place] [address] Dion Barlow MD [facility] [place] [address] Ulcerative colitis (Primary Dx) Discharge Disposition: Home [...] the preparation at this time. Please call [phone] to let us know that you cannot [...] time. ?? Please plan to be at [facility] for about 3 hours; please see your letter for estimated procedure and discharge times. If you have read the information thoroughly, and still have questions about what you have read, please call [phone] between the hours of 7:00am - 7:00pm, Thursday - Thursday and a nurse will assist you. If you have an urgent matter after hours, please call [phone], and ask to speak to the Gastroenterology Fellow budget consultant. If you need to reschedule your colonoscopy, please call [phone]. We do have a high volume of [...] information packet from Gastroenterology and Hepatology and [facility]: ?? Please read ALL information in your information packet. ?? If you have read the information thoroughly, and still have questions about what you have read, please call [phone] between the hours of 7:00am - 7:00pm Thursday - Thursday, and a nurse will assist you. ?? If you have an urgent matter after hours, please call [phone], and ask to speak to the Gastroenterology Fellow budget consultant. ?? If you need to reschedule your colonoscopy, please call [phone]. We do have a high volume of patients for this exam, so please give a least 72 hours notice for routine rescheduling. MEDICATION INFORMATION ?? Please call your prescribing physician to see if it is safe for you to lessen the dose or stop your medication prior to this procedure. Please note: If you cannot safely stop these medications, please call [phone]. The prescribing physician can give you instructions [...] you arrive (2 hours before your procedure) [facility] () ?? You will need to arrive ONE HOUR before your procedure time, to help you prepare for your procedure; please see your letter for exact arrival time. ?? Please plan to be at [facility] for about 3 hours; please see the [...] forms of transportation like cabs or buses. [email or web address] 1 FREQUENTLY ASKED QUESTIONS ABOUT YOUR COLONOSCOPY [...] one do I follow? A: Please follow [facility] Gastroenterology instructions, NOT the instructions from the [...] you continue to have problems, please call [phone] during office hours at 7am - 5pm.After hours please call [phone], and ask for the Gastroenterology Fellow budget consultant. Q: Do I REALLY need to drink [...] have a deep chest cough, please call [phone] to see if you need to reschedule your appointment. Q: I am having my menstrual period. Should I reschedule my colonoscopy appointment? A: No. Your menstrual period will not interfere with your physician's ability to complete your procedure. [facility] FAQ 07/12/2009 Brian Rodriguez [address] [facility] [address] Thank you for choosing [facility] for your medical needs. You are scheduledfor a colonoscopy on at the Endoscopy [facility] at [address] (Level 4). Below you will find [...] about what you have read, please call [phone] between the hours of 7:00am - 7:00pm Thursday - Thursday, and ask to speak to the Gastroenterology Fellow budget consultant. If you need to reschedule your procedure please call: [phone]. Thank you for choosing [facility]. Sincerely, The Gastroenterology and Hepatology Team and the Endoscopy Center at [facility] documented in this encounter Progress Notes * Dion Barlow MD - 11/05/2011 2:31 PM EST Patient Active Problem List Diagnoses ??? Ulcerative colitis [556.9J] Colonoscopy 04/08/10 (Dr. Gomes [facility]) - inflammation only within the rectum [...] 4. Arrange for colonoscopy. Davina Barlow MD Architectural Internrim technician Section of Gastroenterology [place] [address] CC: MORE NAYLOR MD [address] [place] [id number] documented in this encounter Plan of Treatment Upcoming Encounters Date Type Department Care Team (Late st Contact Info) Description 07/01/2024 Hospital Encounter Heart and Vascular Unit Level 3 [place] [phone] Bishop Godinez MD [facility] [place] [address] 08/15/2024 9:00 AM EDT Office [place] [phone] Dion Barlow MD [facility] [place] [address] 09/01/2024 11:20 AM EDT Office Visit Dermatology at [facility] [address] [place] [address] Gómez Mercer MD [facility] [address] ED[place] [address] 09/21/2024 2:45 PM EDT Office Visit Pain and Spine Center at [facility] [place] [address] Trung Hoyos MD [facility] [place] [address] documented as of this encounter Procedures Procedure [...] Gran Absolute 0.02 0.00 - 0.05 x10(3)/mcL [facility] Blood specimen (specimen) 11/05/2011 3:15 PM EST 11/05/2011 3:22 PM EST L Karthik Barlow MD HEMATOLOGY ORDERABLE S Performing Organization Address [facility] Co de Phone Number [facility] * TPMT Enzyme (11/05/2011 3:15 PM EST) TPMT Enzyme See Note [facility] Comment: Normal Activity Please see scanned report in Chart Review under the Non-DH Laboratory Heading. Test performed by [facility], [address] [place] [id number] Blood specimen (specimen) 11/05/2011 3:15 PM EST 11/05/2011 3:45 PM EST L Karthik Barlow MD CHEMISTRY ORDERABLES Performing Organization Address [facility] Co de Phone Number [facility] * High Sensitivity CRP (11/05/2011 3:15 PM EST) C-Reactive Protein High Sensitivity 2.3 mg/L [facility] Comment: Interpretations: 1) For cardiac risk assessment, [...] CHEMISTRY ORDERABLES Performing Organization Address [facility] de Phone Number [employer] * Sedimentation rate (11/05/2011 3:15 PM EST) Sedimentation Rate Automated 13 0 - 15 mm/hr [facility] Blood specimen (specimen) 11/05/2011 3:15 PM EST 11/05/2011 3:22 PM EST L Karthik Barlow MD HEMATOLOGY ORDERABLE S Performing Organization Address [facility] de Phone Number CERNER MILLENNI[facility] * CMP w/fasting Glucose (11/05/2011 3:15 PM EST) [facility] Glucose Fasting 97 65 - 99 mg/dL [facility] Comment: [...] of Diabetes Mellitus, Position Statement from the [place] Diabetes Association. ??Diabetes Care, Volume 33, Supplement [...] EST L Karthik Barlow MD CHEMISTRY ORDERABLES [facility]ERGIOVANNI COLBERTIUM * (ABNORMAL) CBC (with Diff) (11/05/2011 3:15 [...] MD HEMATOLOGY ORDERABLE S Performing Organization Address City/State/[facility] Co de Phone Number DURGA FREDERICK documented in this encounter Visit Diagnoses Diagnosis Ulcerative colitis- Primary Ulcerative colitis, unspecified documented in this encounter Care Teams Insurance Healthcare Representative Relationship Specialty Start Date End Date More Naylor MD [address] [place] [address] PCP - General 10/01/11 02/13/21 documented as of this encounter
[2024-06-30] VITALS (60 sets, daily range): BP systolic 108–162; BP diastolic 56–94; PULSE 59–74; RESP 13–29; TEMP 36.2–37.4; O2SAT 92–98
[2024-06-30 00:36] LABS: Magnesium 1.8 mg/dL (1.8-2.4)
[2024-06-30 00:51] LABS: Troponin I 17763 ng/L (< or =60)
[2024-06-30 00:52] LABS: Calculated LDL 123 mg/dL (<100); Cholesterol 225 mg/dL (<200); HDL Cholesterol 41 mg/dL (40-60); TSH 4.45 uIU/Ml (0.36-3.74); Triglyceride 308 mg/dL (<150)
[2024-06-30 03:18] LABS: HCT 34.4 % (40.0-50.0); HGB 11.6 g/dL (13.5-17.5); MCH 33.5 pg (27.0-33.0); MCHC 33.7 % (32.0-36.0); MCV 99 fL (80-95); MPV 11.4 fL (8.0-11.0); Platelet Count 145 10^3/uL (130-400); RBC 3.46 10^6/uL (4.36-5.78); RDW 12.9 % (11.8-14.1); RDW-SD 46.8 fL; WBC 7.77 10^3/uL (4.4-10.8)
[2024-06-30 03:32] LABS: PTT Activated 27.6 sec (23.6-32.8)
[2024-06-30 04:26] LABS: ALT 31 U/L (16-63); AST 85 U/L (15-37); Albumin 3.3 g/dL (3.4-5.0); Alkaline Phosphatase 68 U/L (46-116); Anion Gap 9.9 mmol/L (3-11); BUN 13 mg/dL (7-18); Bilirubin, Total 0.48 mg/dL (0.2-1.0); CO2 24.1 mmol/L (21.0-32.0); CREATININE 1.1 mg/dL (0.70-1.30); Chloride 105 mmol/L (98-107); Estimated GFR 69.57 (mL/min/1.73m2); Glucose 162 mg/dL (74-106); Potassium 3.4 mmol/L (3.5-5.1); Sodium 139 mmol/L (136-145); Total Protein 7.1 g/dL (6.4-8.2)
[2024-06-30 04:34] LABS: Troponin I 21314 ng/L (< or =60)
[2024-06-30] MEDS: MAGNESIUM SULFATE 2 GM/50 ML BAG IVINF (04:44)
--- NOTE | 2024-06-30 04:45 | RT.EKG_ITS ---
APPROVED REPORT Exam: Resting ECG Reason for Exam: EKG santos Patient Location: I HR:70 bpm ECG Measurements Heart Rate 70 AXIS AL 185 P 52 QRSd 149 QRS 74 QT 435 T 0 QTc 472 Conclusion Sinus rhythm...normal P axis, V-rate 60- 99 Ventricular premature complex...V complex w/ short R-R interval Right bundle branch block...QRSd>120, terminal axis(90,270)
[2024-06-30] MEDS: Aspirin 81 MG CHEW PO (07:30)
[2024-06-30] MEDS: Losartan 50 MG TAB 100 MG PO (07:30)
[2024-06-30] MEDS: Acetaminophen 325 MG TAB PO (07:30)
[2024-06-30] MEDS: Metoprolol 25 MG TAB PO (07:30)
[2024-06-30] MEDS: Pantoprazole 40 MG TABCR PO (07:30)
[2024-06-30] MEDS: Clopidogrel 75 MG TAB PO (07:31)
[2024-06-30] MEDS: Folic Acid 1 MG TAB PO (07:32)
[2024-06-30] MEDS: Normal Saline Flush 10 ML SYR IVP (09:33)
--- NOTE | 2024-06-30 09:42 | INITIAL_ITS ---
Date of service: 06/30/24 Time of Service: 09:42 Care Management Initial Assmt Initial Assessment Reason for Hospitalization: NSTEMI Functional Status/Living Situation Patient Presentation: Brian was sitting up in bed when CM met with him. He appeared to be in good spirits and engaged easily with CM. Brian was admitted with an NSTEMI. He denied having chest pain at the time but did admit to left shoulder pain. . His initial troponin was 4143 and is now [address]. Brian has been accepted in transfer to [facility]. Brian is now retired but worked at many different occupations. He proudly shared that he helped to build [facility] back in the seventies. 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) Instrumental Activities of Daily Living (ADLs): Independent Medications Medication Management: No Issues/Barriers identified Advance Directives Advance Directives: Do you have an Advance Directive: N 01/08/24 11:20 AD On File at [facility]: N 01/08/24 11:20 Date Asked 06/29/24 06/29/24 15:59 AD Date Reviewed COLST On File at [facility] COLST Date Scanned Code Status Resuscitation Status Full Code Portal Pt does not currently have a portal and education provided: No Insurance Coverage/Financial Issues Insurance: Medicare [facility] Care Team Visit Care Team Role Provider Type Deacon Watters NP Primary Care Provider NURSE PRACTITIONER Donnell Zhu MD Emergency Provider [facility] STAFF PHYSICIAN Gómez Fonseca Admit Provider NON-[facility] STAFF PHYSICIAN Attending Provider Discharge Potential Discharge Needs: Other (transfer top [facility]) Anticipated Barriers to Discharge: Bed availability Patient/Family Education Needs: Review discharge instructions, discuss Ask Me Three Transportation: EMS (Brian has been accepted in transfer to [facility], He will transport via EMS coordinated by nursing aircraft engine mechanic supervisor and follow up with facility providers. CM will follow.) Plan: Brian will be transferred to [facility] Cardiology later today. He will transport via EMS coordinated by the nursing aircraft engine mechanic supervisor and will follow up with facility providers and plan of care. CM will follow. 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) Gastroesophageal reflux disease (Chronic) Hearing loss (Chronic) Right lumbar radiculopathy (Chronic 12/06/15) Ulcerative colitis (Chronic) mild Inguinodynia, left (Acute) Prostatitis (Acute) Hydrocele (Acute) History of tobacco use (Acute) Family history of colon cancer (Acute) Diverticulosis of sigmoid colon (Acute) Colon polyp (Acute) Pain in left testicle (Acute) BPH loc w urin obs/LUTS (Acute) Microscopic hematuria (Acute) Left inguinal pain (Acute) Lumbar back pain with radiculopathy affecting left lower extremity (Acute) Hiatal hernia with GERD (Acute) Dysuria (Acute) Exertional dyspnea (Acute) Hyperlipidemia (Acute) Right shoulder pain (Acute) Traumatic tear of right rotator cuff (Acute 01/01/22) Skin lesion (Acute) Status post arthroscopy of right shoulder (Acute 09/05/22) s/p rotator cuff repair of supraspinatus, arthroscopic biceps tenodesis, extensive debridement and subacromial decompression Medical History Skin cancer removal x2 weeks ago Glaucoma surgery fixed Tendonitis of long head of biceps brachii of right shoulder Bursitis of right shoulder Esophagitis Subdural hemorrhage Age 17, and a tree fell and hit him age 47 Abnormal colonoscopy 02/22/19 tubular adenoma ascending and transverse colon, sessile serrated adenoma @ 50cm, rectosigmoid colon moderately active chronic colitis/proctitis. mg Inguinal hernia of left side without obstruction or gangrene COPD (chronic obstructive pulmonary disease) Essential hypertension GERD (gastroesophageal reflux disease) Ulcerative colitis DM2 (diabetes mellitus, type 2) Skin cancer, basal cell (10/08/16) Surgical History History of cataract surgery History of esophagogastroduodenoscopy (EGD) (~06/28/21) History of herniorrhaphy (10/19/18) left indirect, dr perez History of appendectomy History of open reduction and internal fixation (ORIF) procedure wrist and ankle Colonoscopy - [facility] 07[place]13/14[place] [facility] Cholecyst[place] Family History Mother Leukemia Father Neoplasm Grandfather Neoplasm STOMACH Grandmother Diabetes Colitis Brother Prostate cancer Nephew Prostate cancer Social History Smoking/Tobacco Use Status: Former Tobacco Use Quit Date: 11/23/91 Pack-years: 20 Second Hand Exposure: Yes Smoking risk assessment performed?: Yes Alcohol Intake: former Drug use: Never Substance use type: does not use Details: alcohol t-7 Caregiver/Support person: No Housing: house Number of Children: 2 Communication Needs: Hard of Hearing Do you need help understanding health information?: Rarely current occupation: Retired Pets and animals: No Sexually active: No Do you think of yourself as: straight/heterosexual Current gender identity: male What is your relationship status?: How often do you talk on the phone with friends or family?: three or more times per week How often do you get together with friends or relatives?: never How often do you attend sabianist or tenriism services?: decline to answer Do you belong to any clubs or organized social groups?: no Panel score (0-1 are the most socially isolated patients): 1 What type of physical activity do you participate in: walking Duration: > 90 minutes/day Frequency: daily Special harmeet needs: No Seatbelt use: always Helmet use: Yes Helmet use: always Drive intox or ride w/intox feeder driver: No Do you feel safe at home: Yes Do you feel safe in your relationship?: Yes Victim of physical abuse: No Victim of emotional abuse: No Victim of sexual abuse: No Would you like helpful sources: No Additional Social history: lives alone SDOH(Care Management) Screening Will the Patient Participate in the Screening?: Yes Do you worry about having a steady place to live?: no Problems where you live: no known problems In the past 12 months, have you had to go without electric, gas, oil or water in your home?: no Have you or anyone in your house had to go without enough food to eat?: no Has lack of transportation kept you from medical appointments or from doing things needed for daily living?: no Has anyone in your support network made you feel unsafe for any reason?: no Health Related Social Needs Health related social needs details: daughter lives with pt and son lives next door
--- NOTE | 2024-06-30 11:27 | PHA.REVIEW2 ---
Pharmacy Admission Review Admission Clinical Review Admission Pharmacy Review: Non-ST elevation AK (NSTEMI) (Acute) hornet venom Allergy (Severe, Verified 06/29/24 14:08) Anaphylaxis amitriptyline Allergy (Verified 06/29/24 14:08) Hives cephalexin (From Keflex) Adverse Reaction (Intermediate, Verified 06/29/24 14:08) headaches empagliflozin (From Jardiance) Adverse Reaction (Intermediate, Verified 06/29/24 14:08) Yeast infection finasteride (From Proscar) Adverse Reaction (Intermediate, Verified 06/29/24 14:08) testicle pain Tetracyclines Adverse Reaction (Intermediate, Verified 06/29/24 14:08) NAUSEA erythromycin base Adverse Reaction (Unknown, Verified 06/29/24 14:08) NAUSEA Resuscitation Status Full Code Height 6 ft 4 in Weight 112 kg Comments Comments/Follow Ups: Missing home meds if not transferred Pharmacy Admission Review Renal Dosing Renal Dosing: BUN 13 mg/dL (7-18) 06/30/24 03:02 Creatinine 1.1 mg/dL (0.70-1.30) 06/30/24 03:02 Medications needing adjustments: Reviewed (CrCl 78.2 mL/min) List of meds needing interventions: Current medications are okay Anticoagulation Anticoagulation: Hgb 11.6 g/dL (13.5-17.5) L 06/30/24 03:02 Hct 34.4 % (40.0-50.0) L 06/30/24 03:02 Plt Count 145 10^3/uL (130-400) 06/30/24 03:02 INR 1.0 (0.9-1.1) 06/29/24 14:25 Creatinine 1.1 mg/dL (0.70-1.30) 06/30/24 03:02 Therapeutic Anticoagulation: Reviewed Medications: Heparin (infusion) Opiate Usage Evaluate Pain Scale/Pains Meds: Reviewed (PRN morphine - no doses given so far) Scheduled Bowel Reg ordered if on Opiates?: No (PRN docusate/Miralax) Relevant Labs Relevant Labs: Sodium 139 mmol/L (136-145) 06/30/24 03:02 Potassium 3.4 mmol/L (3.5-5.1) L D 06/30/24 03:02 Chloride 105 mmol/L (98-107) 06/30/24 03:02 Magnesium 1.8 mg/dL (1.8-2.4) 06/29/24 23:58 Electrolytes, C-Reactive P, ESR: Reviewed (K decreased from 5.7) DM Control DM Control: Glucose 162 mg/dL (74-106) H 06/30/24 03:02 Finger Stick Blood Glucose 183 0956 Finger Stick Blood Glucose 183 0731 Finger Stick Blood Glucose 183 0731 DM Control: Reviewed Insulin Dosing, Diabetic Medication: Has order for SS insulin. Home meds on hold per H+P. Cardiac Review Cardiac Review: [place]rop[place] [address] ng/L (< or =60) H* 06/30/24 03:02 NT-Pro-B Natriuret Pep 2040 pg/mL (<300) H 06/29/24 14:25 BP, HR, EF%: Reviewed (BP and HR WNL, troponin trending upwards: 4143 (@1425) -> 6697 (@1855) -> 18167 (@2358) -> 36173 (@0302)) QTc Review QTc: Reviewed (465 from 06/29/24) IV to PO Switch IV Medications: Reviewed (heparin and morphine) Home Meds Home Med List reviewed: Reviewed Relevent Home Meds Not ordered & why?: propranolol (on hold per H+P), omeprazole (has order for pantoprazole), budesonide rectal foam, dicyclomine (PRN), EpiPen (PRN), glipizide (on hold per H+P), ketoconazole cream, metformin (on hold per H+P), naproxen (PRN) and sumatriptan (PRN) Will reach out regarding missing home meds if patient is not discharged (plan to be transferred when bed available) - budesonide foam and ketoconazole cream Current Meds Current Medication Order Review: Reviewed Comments Comments/Follow Ups: Missing home meds if not transferred
[2024-06-30] MEDS: Heparin in 0.45% NaCl 25,000 UNIT/250 ML BAG 10 UNIT IV (11:40)
--- NOTE | 2024-06-30 14:11 | W.PM.DS.N ---
Date of service: 06/30/24 Time of Service: 14:11 DS: Diagnosis Discharge Diagnosis (1) Non-ST elevation IN (NSTEMI): Status: Acute (2) HTN (hypertension): Status: Chronic (3) Diabetes mellitus: Status: Chronic (4) Ulcerative colitis: (5) GERD (gastroesophageal reflux disease): (6) BPH without obstruction/lower urinary tract symptoms: Status: Chronic Discharge Plan Disposition Patient Disposition: Transfer-Acute Inpatient Care Specific Acute Inpt Facility: [facility] Condition: Stable Discharge Details Reason For Visit: NSTEMI, HTN Admit Date/Time: 06/29/24 22:13 Admit Provider: Gómez Fonseca Attending Provider: Gómez Fonseca Primary Care Provider: Deacon Watters Hospital Course Hospital Course: Patient presented with signs and symptoms were ultimately determined to be secondary to an NSTEMI. Patient had significantly elevated troponin on presentation of 4143 that during hospitalization slowly increased to 21,314. [facility] cardiology was consulted in the emergency department they recommended Plavix load as well as initiating heparin drip. During remainder of hospitalization patient remained stable and without chest pain and was ultimately determined to be stable for transfer to [facility] cardiology for left heart catheterization secondary to NSTEMI. Home Meds and New Rx's Prescriptions: No Action naproxen 250 mg tablet 250 - 500 mg PO BID PRN (Reason: pain and inflammation) Qty: 30 0RF Rx Instructions: take with a meal acetaminophen [Tylenol] 325 mg tablet 650 mg PO Q4H PRN sulfasalazine 500 mg tablet 0.5 gm PO BID propranolol 160 mg capsule,extended release 24 hr 160 mg PO DAILY Qty: 90 3RF Rx Instructions: FOR MIGRAINE PROPHYLAXIS dicyclomine 20 mg tablet 20 mg PO Patient Comments: TAKE ONE TABLET BY MOUTH EVERY 8 HOURS NEEDED epinephrine [EpiPen] 0.3 mg/0.3 mL auto-injector 0.3 ml IM ONCE Qty: 1 0RF Rx Instructions: SEVERE ALLERGIC REACTION TO INSECT STING sumatriptan succinate [Imitrex] 50 mg tablet 50 mg PO ONCE PRN (Reason: migraine headache) Qty: 7 5RF (DME) OneTouch Ultra Blue Test Strip Strip See Rx Instructions .ROUTE .MEDSUPPLY Qty: 100 4RF Rx Instructions: One Daily (DME) pen needle, diabetic [Pen Needle] 31 gauge x 5/16 needle 1 ea Miscellaneous DAILY Qty: 100 4RF Rx Instructions: BD ultrafine metformin 500 mg tablet 500 mg PO DAILY Qty: 90 3RF glipizide 10 mg tablet 10 mg PO DAILY Qty: 90 4RF omeprazole 40 mg capsule,delayed release(DR/EC) 40 mg PO DAILY Qty: 90 3RF folic acid 1 mg tablet 1 mg PO DAILY Qty: 90 4RF insulin glargine [Basaglar KwikPen U-100 Insulin] 100 unit/mL (3 mL) insulin pen 70 unit subcut HS Qty: 63 3RF losartan 100 mg tablet 100 mg PO DAILY Qty: 90 3RF triamcinolone acetonide 0.1 % cream 1 applic topical BID Qty: 80 1RF albuterol sulfate 90 mcg/actuation HFA aerosol inhaler 2 puff inhalation Q6H PRN (Reason: shortness of breath or wheezing) Qty: 8.5 2RF tamsulosin 0.4 mg capsule 0.4 mg PO HS Rx Instructions: Take 2 caps daily ketoconazole 2 % cream TOPICAL Patient Comments: APPLY TO THE AFFECTED AREAS ON THE GROIN TWICE DAILY (DME) pen needle, diabetic [BD Ultra-Fine Mini Pen Needle] 31 gauge x 3/16 needle MISCELLANEOUS Patient Comments: USE ONCE DAILY budesonide 2 mg/actuation foam [place] Patient Comments: INSERT ONE PUMP RECTALLY NIGHTLY FOR 2 WEEKS, THEN CONTINUE EVERY OTHER NIGHT (4NIGHTS PER WEEK) Discharge Instructions Activity:: Activity as Tolerated Equipment/Supplies:: No Equipment Needed Diet:: As Tolerated Discharge Orders Discharge Orders: Discharge Order (Routine); Ordered 06/30/24 Ordered By: Cuco Thomas DS: Summary Time Spent with Patient providing and/or coordinating discharge services: Greater than 30 minutes Status at Discharge Functional status at discharge: independent ambulation Overall status at discharge: patient is back to baseline Mental Status: mental status grossly normal Speech and Movement: speech and movement normal Mood: congruent mood Affect: normal affect Quality:SDOH Health Related Social Needs: Health related social needs details daughter lives with pt and son lives next door Health related social needs details: daughter lives with pt and son lives next door Exam Narrative Exam Narrative: Elderly gentleman lying in bed in no acute distress, ANO x 4, heart regular rhythm, lungs clear auscultation bilaterally, abdomen soft, nontender, nondistended Psych Mental Status: mental status grossly normal Speech and Movement: speech and movement normal Mood: congruent mood Affect: normal affect DS: Data Vitals/I&O Vitals and I&O: Vital Signs Temperature 97.3 F L 06/30/24 12:01 Temperature Source Temporal Artery Scan 06/30/24 12:00 Pulse 65 06/30/24 12:01 Pulse 63 06/30/24 12:01 Respiratory Rate 18 06/30/24 12:01 Respiratory Effort Normal, Non-Labored 06/30/24 12:00 Respiratory Depth Normal 06/30/24 12:00 Respiratory Pattern Normal 06/30/24 12:00 Blood Pressure 146/94 H 06/30/24 12:01 Blood Pressure Mean 110 06/30/24 12:01 Blood Pressure Position Right Lateral 06/30/24 12:00 Pulse Oximetry 98 06/30/24 12:01 Oxygen Delivery Method Room Air 06/30/24 12:00 Oxygen Flow Rate 0 06/30/24 12:00 Pain Level 0 06/30/24 12:00 Intake & Output 06/29/24 06/30/24 06/30/24 17:59 05:59 17:59 Intake Total 20 / 20 335.667 / 335.667 Output Total 975 / 975 Balance -639.333 / -639.333 Weight 240 lb 246 lb 14.684 oz Intake: IV / 20 245.667 / 245.667 Oral 90 / 90 Output: Urine 975 / 975 Other: Urine Color Yellow Urine Appearance Clear Urine Odor Normal Voiding Methods Urinal Data Completed and Pending Labs on day of discharge: Labs from last 24 hours 06/30/24 06/29/24 06/29/24 03:02 23:58 18:55 WBC 7.77 RBC 3.46 L Hgb 11.6 L Hct 34.4 L MCV 99 H MCH 33.5 H MCHC 33.7 RDW 12.9 Plt Count 145 MPV 11.4 H Immature Gran % Neutrophils % Lymphocytes % Monocytes % Eosinophils % Basophils % Nucleated RBC % Absolute Neutrophils Absolute Lymphocytes Absolute Monocytes Absolute Eosinophils Absolute Basophils PT INR APTT 27.6 Sodium 139 Potassium 3.4 L D Chloride 105 Carbon Dioxide 24.1 Anion Gap 9.9 BUN 13 Creatinine 1.1 Est GFR (CKD-EPI 2020) 69.57 Glucose 162 H Calcium 9.0 Magnesium 1.8 Total Bilirubin 0.48 AST 85 H ALT 31 Alkaline Phosphatase 68 [place] [address] H* 02607 H* 6697 H* NT-Pro-B Natriuret Pep Total Protein 7.1 Albumin 3.3 L Triglycerides 308 H Total Cholesterol 225 H LDL Cholesterol, Calc 123 H HDL Cholesterol 41 Lipase TSH 4.45 H 06/29/24 14:25 WBC 6.84 RBC 3.80 L Hgb 12.7 L Hct 37.8 L MCV 100 H MCH 33.4 H MCHC 33.6 RDW 12.7 Plt Count 171 MPV 11.3 H Immature Gran % 0.4 Neutrophils % 72.8 Lymphocytes % 16.8 Monocytes % 7.6 Eosinophils % 2.0 Basophils % 0.4 Nucleated RBC % 0.0 Absolute Neutrophils 4.97 Absolute Lymphocytes 1.15 L Absolute Monocytes 0.52 Absolute Eosinophils 0.14 Absolute Basophils 0.03 PT 10.3 INR 1.0 APTT 20.3 L Sodium 137 Potassium 5.7 H Chloride 102 Carbon Dioxide 26.1 Anion Gap 8.9 BUN 12 Creatinine 1.1 Est GFR (CKD-EPI 2020) 69.57 Glucose 200 H Calcium 9.4 Magnesium 1.6 L Total Bilirubin 0.68 AST 72 H ALT 30 Alkaline Phosphatase 65 Troponin I 4143 H* NT-Pro-B Natriuret Pep 2040 H Total Protein 8.3 H Albumin 3.7 Triglycerides Total Cholesterol LDL Cholesterol, Calc HDL Cholesterol Lipase 26 TSH PFSH All Active Problems BPH without obstruction/lower urinary tract symptoms (Chronic) HTN (hypertension) (Chronic) Non-ST elevation IN (NSTEMI) (Acute) Chronic neck pain (Acute) Chronic cough (Acute) Asthma (Chronic) Diabetes mellitus (Chronic 03/10/13) Diabetic peripheral neuropathy associated with type 2 diabetes mellitus (Chronic 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) Gastroesophageal reflux disease (Chronic) Hearing loss (Chronic) Right lumbar radiculopathy (Chronic 12/06/15) Ulcerative colitis (Chronic) mild Inguinodynia, left (Acute) Prostatitis (Acute) Hydrocele (Acute) History of tobacco use (Acute) Family history of colon cancer (Acute) Diverticulosis of sigmoid colon (Acute) Colon polyp (Acute) Pain in left testicle (Acute) BPH loc w urin obs/LUTS (Acute) Microscopic hematuria (Acute) Left inguinal pain (Acute) Lumbar back pain with radiculopathy affecting left lower extremity (Acute) Hiatal hernia with GERD (Acute) Dysuria (Acute) Exertional dyspnea (Acute) Hyperlipidemia (Acute) Right shoulder pain (Acute) Traumatic tear of right rotator cuff (Acute 01/01/22) Skin lesion (Acute) Status post arthroscopy of right shoulder (Acute 09/05/22) s/p rotator cuff repair of supraspinatus, arthroscopic biceps tenodesis, extensive debridement and subacromial decompression Medical History Skin cancer removal x2 weeks ago Glaucoma surgery fixed Tendonitis of long head of biceps brachii of right shoulder Bursitis of right shoulder Esophagitis Subdural hemorrhage Age 17, and a tree fell and hit him age 47 Abnormal colonoscopy 02/22/19 tubular adenoma ascending and transverse colon, sessile serrated adenoma @ 50cm, rectosigmoid colon moderately active chronic colitis/proctitis. mg Inguinal hernia of left side without obstruction or gangrene COPD (chronic obstructive pulmonary disease) Essential hypertension GERD (gastroesophageal reflux disease) Ulcerative colitis DM2 (diabetes mellitus, type 2) Skin cancer, basal cell (10/08/16) Surgical History History of cataract surgery History of esophagogastroduodenoscopy (EGD) (~06/28/21) History of herniorrhaphy (10/19/18) left indirect, dr perez History of appendectomy History of open reduction and internal fixation (ORIF) procedure wrist and ankle [place] [facility] [place]; [facility] Cholecystectomy Family History Mother Leukemia Father Neoplasm Grandfather Neoplasm STOMACH Grandmother Diabetes Colitis Brother Prostate cancer Nephew Prostate cancer Social History Smoking/Tobacco Use Status: Former Tobacco Use Quit Date: 11/23/91 Pack-years: 20 Second Hand Exposure: Yes Smoking risk assessment performed?: Yes Alcohol Intake: former Drug use: Never Substance use type: does not use Details: alcohol t-7 Caregiver/Support person: No Housing: house Number of Children: 2 Communication Needs: Hard of Hearing Do you need help understanding health information?: Rarely current occupation: Retired Pets and animals: No Sexually active: No Do you think of yourself as: straight/heterosexual Current gender identity: male What is your relationship status?: How often do you talk on the phone with friends or family?: three or more times per week How often do you get together with friends or relatives?: never How often do you attend episcopalian or restorationist services?: decline to answer Do you belong to any clubs or organized social groups?: no Panel score (0-1 are the most socially isolated patients): 1 What type of physical activity do you participate in: walking Duration: > 90 minutes/day Frequency: daily Special harmeet needs: No Seatbelt use: always Helmet use: Yes Helmet use: always Drive intox or ride w/intox dedicated intermodal truck driver: No Do you feel safe at home: Yes Do you feel safe in your relationship?: Yes Victim of physical abuse: No Victim of emotional abuse: No Victim of sexual abuse: No Would you like helpful sources: No Additional Social history: lives alone Time Spent with Patient Time Spent with Patient: <45 minutes Time was spent: preparing to see the patient(eg.review tests), obtaining and/or reviewing separately otained hiistory, ordering medications,tests, procedures, referring, communicating with other health home health care physician, indepentently interpreting results, counseling the patient and care coordination
== END 2024-06-30 14:34 | disposition short-term general hospital (02) | DRG 281 ==
LOC: ER 19:57 → ICU 23:30
PROVIDERS: Admitting Provider Family Medicine; Emergency Provider Emergency Medicine; PCP Nurse Practitioner Family; Visit Provider Family Medicine
DX: I21.4 Non-ST elevation (NSTEMI) myocardial infarction (principal); K51.80 Other ulcerative colitis without complications; I10 Essential (primary) hypertension; E11.42 Type 2 diabetes mellitus with diabetic polyneuropathy; Z79.4 Long term (current) use of insulin; N21.9 Calculus of lower urinary tract, unspecified; I49.3 Ventricular premature depolarization; G89.29 Other chronic pain; M54.2 Cervicalgia; R05.3 Chronic cough; M54.16 Radiculopathy, lumbar region; Z80.0 Family history of malignant neoplasm of digestive organs; R31.29 Other microscopic hematuria; K57.30 Diverticulosis of large intestine without perforation or abscess without bleeding; N40.1 Benign prostatic hyperplasia with lower urinary tract symptoms; K44.9 Diaphragmatic hernia without obstruction or gangrene; K21.9 Gastro-esophageal reflux disease without esophagitis; E78.5 Hyperlipidemia, unspecified; J44.9 Chronic obstructive pulmonary disease, unspecified
CPT/HCPCS: 00123; 36415; 36416; 80053; 80061; 82962; 83690; 85027; 93005; 96365; 96366; 99285; 71046; 83735; 83880; 84443; 84484; 85025; 85610; 85730; 93010; 99223; 99238; J1644; J1815; J3010; J3475

== ENCOUNTER → 2024-07-06 08:21 | Outpatient (BNVA) | payer MEDICARE, SELFPAY | PROVIDERS: PCP Nurse Practitioner Family; Referring Provider Nurse Practitioner Family; Visit Provider Nurse Practitioner Gerontology | DX: N40.0 Benign prostatic hyperplasia without lower urinary tract symptoms (principal); B37.9 Candidiasis, unspecified; L30.9 Dermatitis, unspecified | CPT/HCPCS: 99213 ==

== ENCOUNTER 2024-07-22 13:02 | Outpatient (RCR) | payer MEDICARE, SELFPAY ==
--- OUTSIDE RECORDS SUMMARY | 2024-07-11 11:11 | XMS_ITS | Encounter Summary ---
Author Organization [facility] Address [address] [place] [address] Care Team Providers Care Pie Filling Mixer Name Role Phone Maximilian Fall MD Primary Care Provider [phone] Encounter Details Date Type Department Care Team [...] on filedocumented in this encounter Care Teams Pie Filling Mixer Relationship Specialty Start Date End Date Maximilian Fall MD PCP - General 03/18/16 documented as of this encounter
--- OUTSIDE RECORDS SUMMARY | 2024-07-11 11:11 | XMS_ITS | Encounter Summary ---
Author Organization [facility] Address [address] [place] [address] Care Team Providers Care Hydraulic Blocker Name Role Phone Unavailable Primary Care Provider Unavailabl e Encounter Details Date Type Department Care Team (Late st Contact Info) Description 10/09/2008 Before PRISM Converted Visit (Maple) [facility] - Maple conversion [address] [place] [address] Yeni Agustin MD [address] [place] [id number] Social History Tobacco Use Types Packs/Day Years [...] ? RODRIGUEZ, BRIAN ? Accession #: ? [id number] ? : ? 1950 (Age: 58) ??M [...] PATHOLOGY ORDERABLE [facility] [address] [place] [address] documented in this encounter Visit Diagnoses Not on filedocumented in this encounter
--- OUTSIDE RECORDS SUMMARY | 2024-07-11 11:11 | XMS_ITS | Encounter Summary ---
Author Organization [facility] Address [address] [place] [address] Care Team Providers Care Financial Management Consultant Name Role Phone Maximilian Fall MD Primary Care Provider [phone] Encounter Details Date Type Department Care Team (Late st Contact Info) Description 07/09/2021 Lab Requisition [facility] Pathology & Laboratory Medicine - [address] [id number] Outr Resulting Lab, Provider Social History Tobacco [...] Outr Resulting Lab MICROBIOLOGY - GENERAL ORDERABLES [facility] [address] [place] [address] * COVID-19 TESTING (07/08/2021 16:45 EDT) COVID-19 rt-PCR Result Negative Negative 07/10/2021 13:51 EDT [facility] Comment: This test has [...] developed and its performance characteristics determined by [facility]. It has not been cleared or [...] testing. This test is based on the [facility] COVID-19 Emergency Use Authorization (EUA) assay, with minor modification as defined by the FDA Performed on the Audioscribeo 7 Pro RT-PCR System. Performing Lab [facility] Lab 07/10/2021 13:51 EDT [facility] Swab 07/08/2021 16:4 5 EDT 07/09/2021 15:41 EDT Provider Outr Resulting Lab MICROBIOLOGY - GENERAL ORDERABLES Performing Organization Address City/[facility] Co de Phone Number [facility] [address] [place] [address] documented in this encounter Visit Diagnoses Not on filedocumented in this encounter Care Teams Financial Management Consultant Relationship Specialty Start Date End Date Maximilian Fall MD PCP - General 03/18/16 documented as of this encounter
--- OUTSIDE RECORDS SUMMARY | 2024-07-11 11:11 | XMS_ITS | Encounter Summary ---
Author Organization [facility] Address [facility] [place] [address] Care Team Providers Care Senior Java Ui Developer Name Role Phone Deacon Watters APRN Primary Care Provider [phone] Encounter Details Date Type Department Care Team (Late st Contact Info) Description 07/05/2024 Abstract Cardiology at [address] [phone] Lesa Duncan, RN Social History Tobacco Use Types Packs/Day Years Used Date Smoking Tobacco: Former Cigarettes 4 30 1 12/01/1961 - 10/01/1992 Smokeless Tobacco: Former Chew Comments:Denies vaping Alcohol Use Standard Drinks/Week Comments Yes 0 (1 standard drink = 0.6 oz pur e alcohol) twice a year [facility] Utilities Answer Date Recorded In the past 12 months has e [facility], gas, oil, or water [place] threatened to shut off services in your home? No 07/01/2024 Hunger Vital Sign Answer Date Recorded Within the past 12 months, y ou worried that your food would run out before you got the money to buy more. Never true 07/01/20 24 Within the past 12 months, t he food you bought just didn't last and you didn't have money to get more. Never true 07/01/2024 PRAPARE - Transportation Answer Date Re corded In the past 12 months, has l ack of transportation kept you from medical appointments or from getting medications? No 07/2024 In the past 12 months, has l ack of transportation kept you from meetings, work, or from getting things needed for daily living? No 07/01/2024 Housing Stability Vital Sign Answer Devin e Recorded In the last 12 months, was t here a time when you were not able to pay the mortgage or rent on time? No 07/01/2024 Number of Times Moved in the Last Year Not on fi le 07/01/2024 At any time in the [facility], were you homeless or living in a group home (including now)? No 07/01/2024 IPV Inpatient Questions Answer Date Recorded Does Anyone Try to Keep You From Having Contact with Others or Doing Things Outside Your Home? no 07/01/2024 Feels Threatened by Someone no 07/2024 Feels Unsafe at Home or Work/School no 07/01/2024 Physical Signs of Abuse Present no 07/01/2024 Sex and Gender Information Value Date Recorded Sex Assigned at Male 12/07/2023 7:54 AM EST Gender Identity Not on file Sexual Orientation Not on file documented as of this encounter Plan of Treatment Upcoming Encounters Date Type Department Care Team (Late st Contact Info) Description 08/15/2024 9:00 AM EDT Office [place] [phone] Dion Barlow MD [facility] [place] [address] 09/01/2024 9:40 AM EDT Office Visit Cardiology at [address] [phone] Franky Shaver MD [facility] [place] [address] 09/01/2024 11:20 AM EDT Office Visit Dermatology at [facility] [address] [place] [phone] Gómez Mercer MD [facility] [address] [place] [address] 09/21/2024 2:45 PM EDT Office Visit [facility] [place] [address] Trung Hoyos MD [facility] [place] [address] documented as of this encounter Visit Diagnoses Not on filedocumented in this encounter Care Teams Senior Java Ui Developer Relationship Specialty Start Date End Date Deacon Watters, LEARNING MANAGER [address] [place] [address] [address] [place] [address] PCP - General Family Medicine 02/17/22 documented as of this encounter
--- OUTSIDE RECORDS SUMMARY | 2024-07-11 11:11 | XMS_ITS | Encounter Summary ---
Author Organization [facility] Address [address] [place] [address] Care Team Providers Care Epic Cupid Analyst Name Role Phone Sharad Leon MD Primary Care Provider Unavail able Encounter Details Date Type Department Care Team (Latest Contact Info) Description 03/14/2016 7:58 EDT - 03/14/2016 23:59 EDT Hospital Encounter [address] [address] Unknown, Provider, Discharge Disposition: Home or Self Care Social History Tobacco Use Types Packs/Day Years Used Date Smoking Tobacco: Never Assessed Sex and Gender Information Value Date Recorded Sex Assigned at Not on file Gender Identity Not on file Sexual Orientation Not on file documented as of this encounter Discharge Disposition Disposition Code Departure Means Destination Home or Self Prison documented in this encounter Plan of Treatment Not on file documented as of this encounter Visit Diagnoses Not on filedocumented in this encounter Care Teams Epic Cupid Analyst Relationship Specialty Start Date End Date Sharad Leon MD PCP - General 12/07/09 03/17/16 documented as of this encounter
--- OUTSIDE RECORDS SUMMARY | 2024-07-11 11:11 | XMS_ITS | Encounter Summary ---
Author Organization [facility] Address [address] [place] [address] Care Team Providers Care Transportation Solutions Manager Name Role Phone Maximilian Fall MD Primary Care Provider [phone] Encounter Details Date Type Department Care Team (Late st Contact Info) Description 02/17/2023 Lab Requisition [facility] Pathology & Laboratory Medicine - [address] [phone] Outr Resulting Lab, Provider Social History Tobacco [...] Salmonella PCR Negative Negative 02/18/2023 11:17 EDT [facility] Shigella/Enteroin vasive E. coli Negative Negative 02/18/2023 11:17 EDT [facility] HN LAB CAMPYLOBACTER PCR Negative Negative 02/18/2023 11:17 EDT [facility] Shiga Toxin PCR Negative Negative 03/29/202 3 11:17 EDT [facility] Feces SPECIMEN FROM RECTUM / Unknown 02/17/2023 7:00 EDT 02/17/2023 22:14 EDT Provider Outr Resulting Lab MICROBIOLOGY - GENERAL ORDERABLES Performing Organization Address City/State/[facility] Co de Phone Number [facility] [address] [place] [address] documented in this encounter Visit Diagnoses Not on filedocumented in this encounter Care Teams Transportation Solutions Manager Relationship Specialty Start Date End Date Maximilian Fall MD PCP - General 03/18/16 documented as of this encounter
--- OUTSIDE RECORDS SUMMARY | 2024-07-11 11:11 | XMS_ITS | Encounter Summary ---
Author Organization [facility] Address [address] [place] [address] Care Team Providers Care Senior Datastage Developer Name Role Phone Maximilian Fall MD Primary Care Provider [phone] Encounter Details Date Type Department Care Team (Latest Contact Info) Description 09/04/2016 8:11 EDT - 09/04/2016 23:59 EDT Hospital Encounter [address] [address] Unknown, Provider, Discharge Disposition: Home or Self Care Social History Tobacco Use Types Packs/Day Years Used Date Smoking Tobacco: Never Assessed Sex and Gender Information Value Date Recorded Sex Assigned at Not on file Gender Identity Not on file Sexual Orientation Not on file documented as of this encounter Discharge Disposition Disposition Code Departure Means Destination Home or Self [facility] documented in this encounter Plan of Treatment Not on file documented as of this encounter Visit Diagnoses Not on filedocumented in this encounter Care Teams Senior Datastage Developer Relationship Specialty Start Date End Date Maximilian Fall MD PCP - General 03/18/16 documented as of this encounter
--- OUTSIDE RECORDS SUMMARY | 2024-07-11 11:11 | XMS_ITS | Referral Summary ---
Author Organization [facility] Address [address] [place] [address] Care Team Providers Care Secured Entrance Monitor Name Role Phone Maximilian Fall MD Primary Care Provider [phone] Encounters Date Type Department Care Team Description 06/29/2024 Travel 06/29/2024 18:51 EDT - 06/29/2024 23:59 EDT Hospital Encounter [facility] [place] Discharge Disposition: Home or Self Care from Last 3 Months Social History Tobacco [...] DERABLES from Last 3 Months Care Teams Secured Entrance Monitor Relationship Specialty Start Date End Date Maximilian Fall MD PCP - General 03/18/16
--- OUTSIDE RECORDS SUMMARY | 2024-07-11 11:11 | XMS_ITS | Encounter Summary ---
Author Organization [facility] Address [address] [place] [address] Care Team Providers Care Skiver Operator Name Role Phone Maximilian Fall MD Primary Care Provider [phone] Reason for Referral * (Routine/Next Available) - Receiving Office to Obtain Authorization Specialty Diagnoses / Procedures Referred By Contac t Referred To Contact Procedures XR OUTSIDE IMAGES CHEST Unknown, ProviderMD Referral ID Status Reason Start Date Expiration Date Visits Requested Visits Authorized [id number] Receiving Office to Obtain Authorization 06/29/2024 1 1 Reason for Visit * (Routine/Next Available) - Receiving Office to Obtain Authorization Specialty Diagnoses / Procedures Referred By Contac t Referred To Contact Procedures XR OUTSIDE IMAGES CHEST Unknown, MD [place]ba Referral ID Status Reason Start Date Expiration Date Visits Requested Visits Authorized [id number] Receiving Office to Obtain Authorization 06/29/2024 1 1 Encounter Details Date Type Department Care Team (Latest Contact Info) Description 06/29/2024 18:51 EDT - 06/29/2024 23:59 EDT Hospital Encounter [facility] Secondary Reads [place] Discharge Disposition: Home or Self Care Social [...] Code Departure Means Destination Home or Self Care documented in this encounter Plan of Treatment [...] on filedocumented in this encounter Care Teams Skiver Operator Relationship Specialty Start Date End Date Maximilian Fall MD PCP - General 03/18/16 documented as of this encounter
--- OUTSIDE RECORDS SUMMARY | 2024-07-11 11:11 | XMS_ITS | Encounter Summary ---
Author Organization [facility] Address [address] [place] [address] Care Team Providers Care Network Support Specialist Name Role Phone Maximilian Fall MD Primary Care Provider [phone] Encounter Details Date Type Department Care Team (Late st Contact Info) Description 03/10/2023 Lab Requisition [facility] Pathology & Laboratory Medicine - [address] [address] Rodrick Florentino MD [address] [place] [phone] Other microscopic hematuria Social History Tobacco [...] Name Priority Date/Time Associated Diagnosis Comments NON FRAME EXPANDER/FNA CYTOLOGY Today 03/09/2023 10:55 EDT Other microscopic hematuria documented in this encounter Results * NON FRAME EXPANDER/FNA CYTOLOGY (03/09/2023 10:55 EDT) Note to Patient The following pathology results have been interpreted by your pathologist and may be available to you before your health provider has had the opportunity to review them. Please allow time for your provider to receive these results and explore management options, if applicable. 03/12/2023 7:50 [facility] Final Diagnosis URINE, CATHETERIZED, CYTOLOGIC EVALUATION: - Negative for high grade urothelial carcinoma. - Reactive urothelial cells, abundant acute inflammatory cells and lymphocytes present. 03/12/2023 7:50 [facility] Attestation By the signature below, the attending physician certifies that they have personally conducted a gross and/or microscopic examination of the described specimens and rendered or confirmed the above diagnosis. 03/12/2023 7:50 [facility] at 0750 Clinical History Hematuria; R31.29 03/12/2023 7:50 [facility] Gross Description A. 160cc's of clear pale pink fluid (Cytolyt added) were received and processed by selective cellular enhancement technique. 03/12/2023 7:50 [facility] Performing Lab [facility] 03/12/2023 7:50 [facility] Scanned Images 03/12/2023 7:50 [facility] Urine URINE SPECIMEN COLLECTION, CATHETERIZED / Unknown 03/09/2023 10:55 EDT 03/10/2023 6:16 EDT Rodrick Florentino MD PATHOLOGY ORDERAB LES Performing Organization Address City/State/[facility] Co de Phone Number [facility] [address] [place] [address] documented in this encounter Visit Diagnoses Diagnosis Other microscopic hematuria documented in this encounter Care Teams Network Support Specialist Relationship Specialty Start Date End Date Maximilian Fall MD PCP - General 03/18/16 documented as of this encounter
--- OUTSIDE RECORDS SUMMARY | 2024-07-11 11:11 | XMS_ITS | Encounter Summary ---
Author Organization [facility] Address [address] [place] [address] Care Team Providers Care Nutritional Services Director Name Role Phone Maximilian Fall MD Primary Care Provider [phone] Encounter Details Date Type Department Care Team (Late st Contact Info) Description 08/15/2022 Lab Requisition [facility] Pathology & Laboratory Medicine - [address] [address] Zeyad Hudson, [address] [place] [phone] Neoplasm of unspecified behavior of bone, soft [...] explore management options, if applicable. 08/18/2022 11:15 [facility] Final Diagnosis A. SKIN OF NASAL DORSUM, RIGHT, SHAVE BIOPSY: - Basal cell carcinoma, infiltrative type. - Basal cell carcinoma present at peripheral and deep tissue edges. 08/18/2022 11:15 [facility] Attestation By the signature below, the attending physician certifies that they have 1) personally conducted a gross and/or microscopic examination of the described specimen(s), and/or personally interpreted the results of laboratory testing of the described specimen(s), and 2) personally rendered or confirmed the above diagnosis. 08/18/2022 11:15 [facility] at 1114 Microscopic [...] of the islands and stroma. 08/18/2022 11:15 [facility] Clinical History History BCC; clinical diagnosis code: D49.2 08/18/2022 11:15 [facility] Gross Description A. [...] A1-A3. TOLU CHRIS 08/16/2022 10:29 08/18/2022 11:15 [facility] Performing Lab [facility] 08/18/2022 11:15 [facility] Scanned Images 08/18/2022 11:15 [facility] Tissue TISSUE SPECIMEN FROM SKIN / Unknown 08/14/2022 10:25 EDT 08/15/2022 21:12 EDT Zeyad MIRAMONTES PATHOLOGY ORDERABL ES [facility] [address] [place] [address] documented in this encounter Visit Diagnoses Diagnosis Neoplasm of unspecified behavior of bone, soft tissue, and skin documented in this encounter Care Teams Nutritional Services Director Relationship Specialty Start Date End Date Maximilian Fall MD PCP - General 03/18/16 documented as of this encounter
--- OUTSIDE RECORDS SUMMARY | 2024-07-11 11:11 | XMS_ITS | Encounter Summary ---
Author Organization [facility] Address [address] [place] [address] Care Team Providers Care Tunnel Heading Inspector Name Role Phone Sharad Leon MD Primary Care Provider Unavail able Encounter Details Date Type Department Care Team (Late st Contact Info) Description 03/13/2016 Results Only [facility] [phone] Marcy Laurent, DO [address] [place] [address] Social History Tobacco Use Types [...] ? BRIAN RODRIGUEZ ? Accession #: ? [id number] ? : ? 1950 (Age: 65) ??M [...] adjacent to the proximal stapled margin, two customer service representative cross sections and one-half of the longitudinally bisected distal tip are submitted in 1. Dr. Beth 03/17/2016 3:13 PM End of Report [facility] 03/13/2016 19:4 2 EDT 03/14/2016 19:42 EDT Marcy Laurent DO PATHOLOGY ORDERABLES [facility] [address] [place] [address] * SUSCEPTIBILITY (03/13/2016 12:15 EDT) Result ESCHERICHIA COLI Organism identification performed by client. 03/17/2016 7:51 EDT [facility] URINE / Unknown [...] - GENER AL ORDERABLES Performing Organization Address City/[facility] Co de Phone Number [facility] [address] [place] [address] documented in this encounter Visit Diagnoses Not on filedocumented in this encounter Care Teams Tunnel Heading Inspector Relationship Specialty Start Date End Date Sharad Leon MD PCP - General 12/07/09 03/17/16 documented as of this encounter
--- OUTSIDE RECORDS SUMMARY | 2024-07-11 11:11 | XMS_ITS | Encounter Summary ---
Author Organization [facility] Address [address] [place] [address] Care Team Providers Care Tube Maker Name Role Phone Maximilian Fall MD Primary Care Provider [phone] Encounter Details Date Type Department Care Team (Late st Contact Info) Description 11/28/2021 Lab Requisition [facility] Pathology & Laboratory Medicine - [address] [id number] Outr Resulting Lab, Provider Social History Tobacco [...] Outr Resulting Lab MICROBIOLOGY - GENERAL ORDERABLES [facility] [address] [place] [address] * COVID-19 TESTING (11/27/2021 12:35 EST) COVID-19 rt-PCR Result Negative Negative 11/29/2021 16:23 EST [facility] Comment: This test has [...] developed and its performance characteristics determined by [facility]. It has not been cleared or approved [...] testing. This test is based on the [facility] COVID-19 Emergency Use Authorization (EUA) assay, with minor modification as defined by the FDA Performed on the [employer] 7 Flex RT-PCR System. Performing Lab [facility] 11/29/2021 16:23 EST [facility] Swab 11/27/2021 12:3 5 EST 11/28/2021 17:45 EST Provider Outr Resulting Lab MICROBIOLOGY - GENERAL ORDERABLES [facility] [address] [place] [address] documented in this encounter Visit Diagnoses Not on filedocumented in this encounter Care Teams Tube Maker Relationship Specialty Start Date End Date Maximilian Fall MD PCP - General 03/18/16 documented as of this encounter
--- OUTSIDE RECORDS SUMMARY | 2024-07-11 11:11 | XMS_ITS | Encounter Summary ---
Author Organization [facility] Address [address] [place] [address] Care Team Providers Care Dialer Name Role Phone Maximilian Fall MD Primary Care Provider [phone] Encounter Details Date Type Department Care Team (Latest Contact Info) Description 12/31/2017 9:43 EST - 12/31/2017 23:59 EST Hospital Encounter [address] [address] Unknown, Provider, Discharge Disposition: Home or Self Care Social History Tobacco Use Types Packs/Day Years Used Date Smoking Tobacco: Never Assessed Sex and Gender Information Value Date Recorded Sex Assigned at Not on file Gender Identity Not on file Sexual Orientation Not on file documented as of this encounter Discharge Disposition Disposition Code Departure Means Destination Home or Self Correction documented in this encounter Plan of Treatment Not on file documented as of this encounter Visit Diagnoses Not on filedocumented in this encounter Care Teams Dialer Relationship Specialty Start Date End Date Maximilian Fall MD PCP - General 03/18/16 documented as of this encounter
--- OUTSIDE RECORDS SUMMARY | 2024-07-11 11:11 | XMS_ITS | Encounter Summary ---
Author Organization [facility] Address [address] [place] [address] Care Team Providers Care Home Health Aide Name Role Phone More Fall MD Primary Care Provider [phone] Encounter Details Date Type Department Care Team (Late st Contact Info) Description 09/04/2016 Results Only [facility] [phone] More Fall MD [address] [place] [address] Social History Tobacco Use Types Packs/Day Years [...] ? NAYA RODRIGUEZ ? Accession #: ? [id number] ? : ? 1950 (Age: 66) ??M [...] (ASCP) 09/05/2016 2:42 PM End of Report [facility] 09/04/2016 11:2 3 EDT 09/05/2016 11:23 EDT More Fall MD PATHOLOGY ORDERABLES [facility] [address] [place] [address] documented in this encounter Visit Diagnoses Not on filedocumented in this encounter Care Teams Home Health Aide Relationship Specialty Start Date End Date More Fall MD PCP - General 03/18/16 documented as of this encounter
--- OUTSIDE RECORDS SUMMARY | 2024-07-11 11:11 | XMS_ITS | Encounter Summary ---
Author Organization [facility] Address [address] [place] [address] Care Team Providers Care Sales Correspondence Clerk Name Role Phone Maximilian Fall MD Primary Care Provider [phone] Encounter Details Date Type Department Care Team (Late st Contact Info) Description 06/28/2021 Lab Requisition [facility] Pathology & Laboratory Medicine - [address] [address] Bettina Shipman, DO [address] [place], [place] [phone] Encounter for other general examination Social History [...] explore management options, if applicable. 07/02/2021 9:15 [facility] Final Diagnosis A. PROXIMAL [...] with no significant diagnostic abnormalities. 07/02/2021 9:15 [facility] Attestation There was significant resident/fellow involvement in the diagnostic evaluation of this case. By the signature below, the attending physician certifies that they have personally conducted a gross and/or microscopic examination of the described specimens and rendered or confirmed the above diagnosis. 07/02/2021 9:15 [facility] at 0915 Clinical History Dysphagia 07/02/2021 9:15 [facility] Gross Description A. Received [...] Destin Barros 06/29/2021 11:30 07/02/2021 9:15 EDT [facility] Resident/Bridger w: Gutierrez Castro DO 07/02/2021 9:15 EDT [facility] Performing Lab [facility] 9:15 EDT [facility] Scanned Images 07/02/2021 9:15 EDT [facility] Tissue ENTIRE ESOPHAGUS / Unknown [...] 22:58 EDT Bettina Shipman DO PATHOLOGY ORDERABLES [facility] [address] [place] [address] documented in this encounter Visit Diagnoses Diagnosis Encounter for other general examination documented in this encounter Care Teams Sales Correspondence Clerk Relationship Specialty Start Date End Date Maximilian Fall MD PCP - General 03/18/16 documented as of this encounter
--- OUTSIDE RECORDS SUMMARY | 2024-07-11 11:11 | XMS_ITS | Encounter Summary ---
Author Organization [facility] Address [address] [place] [address] Care Team Providers Care Hvac R Tech Name Role Phone Sharad Mcleod MD Primary Care Provider Unavail able Encounter Details Date Type Department Care Team (Late st Contact Info) Description 10/22/2004 Results Only [facility] [address] [place] [address] Maximilian Quiroga MD [address] [place] [phone] Social History Tobacco Use Types Packs/Day Years [...] ? NAYA RODRIGUEZ ? Accession #: ? [id number] ? : ? 1950 (Age: 54) ??M [...] or eosinophils seen in this biopsy. ??(Dr. Hair)/[facility] ?? Document reviewed and electronically signed [...] submitted intact in one cassette. ?? (Dr. Terrazas-MS)/[facility] ?? End of Report [facility] 10/22/2004 10/22/2004 14: 58 EST Maximilian Quiroga MD PATHOLOGY ORDERABLES [facility] [address] [place] [address] documented in this encounter Visit Diagnoses Not on filedocumented in this encounter Care Teams Hvac R Tech Relationship Specialty Start Date End Date Sharad Mcleod MD PCP - General 12/07/09 03/17/16 documented as of this encounter
--- OUTSIDE RECORDS SUMMARY | 2024-07-11 11:11 | XMS_ITS | Encounter Summary ---
Author Organization [facility] [place] [address] Care Team Providers Care Outreach Clinician Name Role Phone Deacon Watters APRN Primary Care Provider [phone] Reason for Visit * Reason Onset Date Comments Referral 07/05/2024 Coronary Artery Disease 07/05/2024 Encounter Details Date Type Department Care Team (Late st Contact Info) Description 07/05/2024 Telephone Cardiology at [address] [phone] Lesa Duncan, track subway repair supervisor; Coronary Artery Disease Social History Tobacco Use Types Packs/Day Years Used Date Smoking Tobacco: Former Cigarettes 4 30 1 12/01/1961 - 10/01/1992 Smokeless Tobacco: Former Chew Comments:Denies vaping Alcohol Use Standard Drinks/Week Comments Yes 0 (1 standard drink = 0.6 oz pur e alcohol) twice a year [facility] Utilities Answer Date Recorded In the past 12 months has e [employer], gas, oil, or water [employer] threatened to shut off services in your [...] any time in the past 12 m [facility], were you homeless or living in a [place] health care facility (including now)? No 07/01/2024 IPV Inpatient Questions [...] encounter Miscellaneous Notes * Telephone Encounter - Lesa Duncan RN - 07/05/2024 5:11 PM EDT Images from the original note were not included. Heart [facility] Vascular Clinics [facility] [address] [place] [address] [place] [address] Brian Rodriguez was discharged from [facility] with a referral to see crucible furnace tender Dr. Franky Shaver following NSTEMI June 30. Brian Rodriguez is a 74 y.o. male with history of HTN, HLD, migraines, DM2, and UC who presented to [facility] for chest pain and was transferred to [facility] for NSTEMI found to have HFrEF. Course complicated by UTI/pyelonephritis. Admitting provider: Armond Denny MD Discharged 07/04/2024. . Active Ambulatory Problems Diagnosis Date Noted Ulcerative colitis 10/01/2011 Diabetes mellitus 10/01/2011 Hearing loss 10/01/2011 GERD (gastroesophageal reflux disease) 10/01/2011 Hydrocele 10/01/2011 Asthma 10/01/2011 Anemia 08/25/2021 NSTEMI (non-ST elevated myocardial infarction) 06/30/2024 Resolved Ambulatory Problems Diagnosis Date Noted No Resolved Ambulatory Problems No Additional Past Medical History . Past Surgical History: Procedure Laterality Date PRO COLONOSCOPY, BIOPSY N/A 02/12/2017 COLONOSCOPY FLEXIBLE, WITH BX (WRVU 3.66) performed by Dion Osullivan MD at [facility] PRO COLONOSCOPY, BIOPSY N/A 02/22/2019 COLONOSCOPY FLEXIBLE, WITH BX (WRVU 3.66) performed by Dion Osullivan MD at [facility] PRO COLONOSCOPY, BIOPSY N/A 03/28/2022 COLONOSCOPY FLEXIBLE, WITH BX (WRVU 3.66) performed by Mona Turner MD at [facility] PRO COLONOSCOPY, BIOPSY N/A 01/20/2024 COLONOSCOPY FLEXIBLE, WITH BX (WRVU 3.56) performed by Anthony Hamlin MD at [facility] PRO COLONOSCOPY, DIAGNOSTIC 11/27/2011 COLONOSCOPY, DIAGNOSTIC performed by Dion OSULLIVAN at [facility] PRO COLONOSCOPY, DIAGNOSTIC 07/13/2014 COLONOSCOPY, DIAGNOSTIC performed by Dion Osullivan MD at [facility] PRO COLONOSCOPY, REMV LESN, SNARE N/A 02/22/2019 COLONOSCOPY, POLYPECTOMY, REMOVAL LESION BY SNARE (WRVU 4.67) performed by Dion Osullivan MD at [facility] PRO COLONOSCOPY, REMV LESN, SNARE N/A 02/26/2021 COLONOSCOPY, POLYPECTOMY, REMOVAL LESION BY SNARE (WRVU 4.67) performed by Dion Osullivan MD at [facility] PRO SIGMOIDOSCOPY, DIAGNOSTIC 03/16/2012 FLEXIBLE SIGMOIDOSCOPY performed by YUDI MALLOY at [facility] PRO UPPER GI ENDOSCOPY, DIAGNOSTIC N/A 04/28/2019 EGD, UPPER GI ENDOSCOPY performed by Iza Coates MD at [facility] UPPER GI ENDOSCOPY, EXAM 10/01/2012 UPPER GI ENDOSCOPY performed by Dion OSULLIVAN at [facility] Current Medications. dicyclomine (Bentyl) 20 mg tablet aspirin 81 mg chewable tablet clopidogreL (Plavix) 75 mg tablet insulin glargine-yfgn (Semglee) 100 unit/mL Solution metoprolol succinate XL (Toprol-XL) 100 mg ER 24 hr tablet nitroGLYcerin (Nitrostat) 0.4 mg sublingual tablet spironolactone (Aldactone) 25 mg tablet pantoprazole EC (Protonix) [address] tablet ciprofloxacin (Cipro) 500 mg tablet atorvastatin (Lipitor) 80 mg tablet ketoconazole (Nizoral) 2 % Cream sulfaSALAzine (Azulfidine) 500 mg tablet gabapentin (Neurontin) 300 mg Capsule losartan (Cozaar) 50 mg Tablet albuterol 90 mcg/actuation HFA Aerosol Inhaler BASAGLAR KWIKPEN U-100 INSULIN 100 unit/mL (3 mL) pen metFORMIN (GLUCOPHAGE) 1,000 mg Tablet tamsulosin (FLOMAX) 0.4 mg Capsule, Sust. Release 24 hr glipiZIDE (GLUCOTROL) 10 mg 24 hr tablet folic acid (FOLVITE) 1 mg tablet No current facility-administered medications for this visit. * Telephone Encounter - Lesa Duncan RN - 07/05/2024 5:11 PM EDT ----- Message from Meli Mcginnis sent at 07/04/2024 1:13 PM EDT ----- Catlen at Cardiology Inpt service left a message today at 12:41 pm She said he was being discharged and they were submitting a referral for the patient to see Cardiology here in [place]. documented in this encounter Plan of Treatment Upcoming Encounters Date Type Department Care Team (Late st Contact Info) Description 08/15/2024 9:00 AM EDT Office [place] [address] Dion Osullivan MD [facility] [place] [address] 09/01/2024 9:40 AM EDT Office Visit Cardiology at [address] [place] [address] Franky Shaver MD [facility] [place] [address] 09/01/2024 11:20 AM EDT Office Visit Dermatology at [facility] [address] [place] [address] Gómez Mercer MD [facility] DR [place] [address] 09/21/2024 2:45 PM EDT Office Visit Pain and Spine Center at [facility] [address] [place] [address] Trung Hoyos MD [facility] [place] [address] documented as of this encounter Visit Diagnoses Not on filedocumented in this encounter Care Teams Outreach Clinician Relationship Specialty Start Date End Date Deacon Watters, DATA COLLECTION TECHNICIAN [address] [place] [address] PCP - General Family Medicine 02/17/22 documented as of this encounter
--- OUTSIDE RECORDS SUMMARY | 2024-07-11 11:11 | XMS_ITS | Encounter Summary ---
Author Organization [facility] Address [address] [place] [address] Care Team Providers Care Control System Computer Scientist Name Role Phone More Naylor MD Primary Care Provider [phone] Encounter Details Date Type Department Care Team (Late st Contact Info) Description 10/30/2016 Results Only [facility]- [facility] [phone] Tamara Reza, [address] [place], [place] [id number] Social History Tobacco Use Types Packs/Day Years [...] ? NAYA RODRIGUEZ ? Accession #: ? [id number] ? : ? 1950 (Age: 66) ??M [...] tumor. This sample was processed at the [facility]. ??The slides were reviewed and the final diagnosis was made at [facility], [address] [place] [address]. ([place] License Number [id number]) Document reviewed and electronically signed by: AMIE [...] prior to verbal report. ??Procedure performed at [facility]. ??Staining of frozen section is adequate. ??Dr. [...] prior to verbal report. ??Procedure performed at [facility]. Staining of frozen section is adequate. ??Dr. [...] Chowdhury 11/03/2016 3:11 PM End of Report [facility] 10/30/2016 11:3 0 EST 11/01/2016 11:30 EST Tamara Rzea DO PATHOLOGY ORDER ASHLIE [facility] [address] [place] [address] documented in this encounter Visit Diagnoses Not on filedocumented in this encounter Care Teams Control System Computer Scientist Relationship Specialty Start Date End Date More Naylor MD PCP - General 03/18/16 documented as of this encounter
--- OUTSIDE RECORDS SUMMARY | 2024-07-11 11:11 | XMS_ITS | Encounter Summary ---
Author Organization [facility] Address [address] [place] [address] Care Team Providers Care Home Maker Name Role Phone Maximilian Fall MD Primary Care Provider [phone] Encounter Details Date Type Department Care Team (Late st Contact Info) Description 11/10/2022 Lab Requisition [facility] Pathology & Laboratory Medicine - [address] [phone] Outr Resulting Lab, Provider Social History Tobacco [...] Salmonella PCR Negative Negative 11/11/2022 0:14 EST [facility] Shigella/Enteroin vasive E. coli Negative Negative 11/11/2022 0:14 EST [facility] HN LAB CAMPYLOBACTER PCR Negative Negative 11/11/2022 0:14 EST [facility] Shiga Toxin PCR Negative Negative 2 0:14 EST [facility] Feces SPECIMEN FROM RECTUM / Unknown 11/09/2022 10:00 EST 11/10/2022 17:36 EST Provider Outr Resulting Lab MICROBIOLOGY - GENERAL ORDERABLES Performing Organization Address City/State/[facility] Co de Phone Number [facility] [address] [place] [address] documented in this encounter Visit Diagnoses Not on filedocumented in this encounter Care Teams Home Maker Relationship Specialty Start Date End Date Maximilian Fall MD PCP - General 03/18/16 documented as of this encounter
--- OUTSIDE RECORDS SUMMARY | 2024-07-11 11:11 | XMS_ITS | Encounter Summary ---
Author Organization Health system Address [address] [place] [address] Care Team Providers Care Signal Helper Name Role Phone Sharad Mcleod MD Primary Care Provider Unavail able Encounter Details Date Type Department Care Team (Late st Contact Info) Description 04/08/2010 Results Only [facility] Laboratory Services - [facility] ([facility]) [address] [place], [place] [phone] Marcelo Agustin, DO [address] [place], [place] [address] Social History Tobacco Use Types Packs/Day Years [...] ? RODRIGUEZ, BRIAN ? Accession #: ? [id number] ? : ? 1950 (Age: 59) ??M [...] cm, submitted in toto as (D). ([facility] ? End of Report ? [facility] 04/08/2010 04/09/2010 16: 29 EDT Marcelo Agustin DO PATHOLOGY ORDER ASHLIE Performing Organization Address City/State/[facility] Co de Phone Number [facility] [address] [place] [address] documented in this encounter Visit Diagnoses Not on filedocumented in this encounter Care Teams Signal Helper Relationship Specialty Start Date End Date Sharad Mcleod MD PCP - General 12/07/09 03/17/16 documented as of this encounter
--- OUTSIDE RECORDS SUMMARY | 2024-07-11 11:11 | XMS_ITS | Clinical Summary ---
Author Organization [facility] Address [address] [place] [address] Care Team Providers Care Manager Product Name Role Phone Maximilian Fall MD Primary Care Provider [phone] Encounters Date Type Department Care Team Description 06/29/2024 18:51 EDT - 06/29/2024 23:59 EDT Hospital Encounter [facility] Secondary Reads [place] Discharge Disposition: Home or Self Care 06/29/2024 Travel from Last 3 Months Social [...] Blood Pressure 123/75 06/29/20241949 EDT Pulse 70 06/29/2024 1950 EDT Temperature 36.8 ??C (98.2 ??F) 06/29/2024 [...] Screening 2013 COVID-19 Vaccine ( season) 2023 Procedures Procedure Name Priority Date/Time Associated Diagnosis Comments XR OUTSIDE IMAGES CHEST Routine 06/29/2024 18:51 EDT from Last 3 Months Results * XR OUTSIDE IMAGES CHEST (06/29/2024 18:51 EDT) Narrative 06/29/2024 18:51 EDT This is a non-reportable exam. Provider Unknown MD SHERMAN OTHER IMAGING OR DERABLES from Last 3 Months Care Teams Manager Product Relationship Specialty Start Date End Date Maximilian Fall MD PCP - General 03/18/16
--- OUTSIDE RECORDS SUMMARY | 2024-07-11 11:11 | XMS_ITS | Encounter Summary ---
Author Organization [facility] Address [address] [place] [address] Care Team Providers Care Cotton Converter Name Role Phone Maximilian Fall MD Primary Care Provider Encounter Details Date Type Department Care Team (Late st Contact Info) Description 12/31/2017 Results Only [facility] [phone] Tamara Reza, [address] [place], [place] [phone] Social History Tobacco Use Types Packs/Day Years [...] ? NAYA RODRIGUEZ ? Accession #: ? [id number] ? : ? 1950 (Age: 67) ??M [...] [place] 01/02/2018 9:44 AM End of Report [facility] 12/31/2017 16:3 5 EST 01/01/2018 16:35 EST Tamara Reza DO PATHOLOGY ORDER ASHLIE [facility] [address] [place] [address] documented in this encounter Visit Diagnoses Not on filedocumented in this encounter Care Teams Cotton Converter Relationship Specialty Start Date End Date Maximilian Fall MD PCP - General 03/18/16 documented as of this encounter
--- OUTSIDE RECORDS SUMMARY | 2024-07-11 11:11 | XMS_ITS | Clinical Summary ---
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 90 tablet 3 11/22/2012 Active glipiZIDE (GLUCOTROL) 10 mg 24 hr tablet Take 10 mg by mouth daily. Active metFORMIN (GLUCOPHAGE) 1,000 mg Tablet Take [...] by mouth daily as needed. 04/21/2021 Active sulfaSALAzine (Azulfidine) 500 mg tablet Take 3 tablets by mouth 2 times daily. 540 tablet 3 09/21/2023 Active ketoconazole (Nizoral) 2 % CreamIndications: Tinea cruris Apply twice daily to affected areas on the groin 30 g 1 06/07/2024 Active dicyclomine (Bentyl) 20 mg tablet TAKE ONE TABLET BY MOUTH EVERY 8 HOURS NEEDED 270 tablet 3 07/04/2024 Active aspirin 81 mg chewable tablet Take 81 mg by mouth daily. 30 tablet 3 07/04/2024 Active clopidogreL (Plavix) 75 mg tablet Take 1 tablet by mouth daily. 90 tablet 3 07/04/2024 Active insulin glargine-yfgn (Semglee) 100 unit/mL Solution Inject 70 Units subcutaneously nightly. 07/04/2024 Active metoprolol succinate XL (Toprol-XL) 100 mg ER 24 hr tablet Take 1 tablet by mouth daily. 30 tablet 12 07/04/2024 Active nitroGLYcerin (Nitrostat) 0.[address] 1 tablet under the tongue every 5 minutes as needed for Chest pain. 90 tablet 12 07/04/2024 Active spironolactone (Aldactone) 25 mg tablet Take 0.5 tablets by mouth daily. 45 tablet 07/04/2024 Active pantoprazole EC (Protonix) [address] tablet Take 1 tablet by mouth daily. 90 tablet 3 07/04/2024 Active atorvastatin (Lipitor) 80 mg tablet Take 1 tablet by mouth daily. 90 tablet 3 07/05/2024 Active Active Problems Problem Noted Date Diagnosed Date NSTEMI (non-ST elevated myocardial infarction) 0 06/30/2024 Anemia 08/25/2021 Overview (08/25/2021): ?? Mild ?? B12, iron all nl 2020 Ulcerative colitis 10/01/2011 Overview (12/06/2023): Colonoscopy 04/08/10 (Dr. Gomes [facility]) - inflammation only within the rectum and sigmoid; extent of the exam was to the hepatic flexure; biopsies proximal to the sigmoid nl [place] [place] mildly [...] to 25 cm - rectum spared EGD (2019): normal [done for gastric thickening on CT] 02/26/21 Colonoscopy: Ulcerative colitis partially treated with only mild activity in the distal rectum.Moderate diverticulosis from sigmoid to ascending colon. Several HPs and one TA. [place] 03/2022 - [place] 1 limited to rectosigmoid, diverticulosis. No dysplasia TREATMENT: cortenemas, Asacol, Rowasa, prednisone, and imodium Diabetes mellitus 10/01/2011 Hearing loss 10/01/2011 GERD (gastroesophageal reflux disease) 1 Hydrocele 10/01/2011 Asthma 10/01/2011 Encounters Date Type Department Care Team Description 07/05/2024 Abstract Cardiology at [address] [address] Lesa Duncan, RN 07/05/2024 Telephone Cardiology at [address] [address] Lesa Duncan, bun panner; Coronary Artery Disease 07/01/2024 2:30 PM EDT - 07/01/2024 3:30 PM EDT [place] [address] Lizzette Hayden MD CARDIAC CATHETERIZATION 07/01/2024 [place] [address] Dion Barlow MD 06/30/2024 3:44 PM EDT - 07/04/2024 3:25 PM EDT Hospital Encounter Heart and Vascular Unit Level 3 [place] [phone] Triston Godinez MD Welch, Terrence D, MD NSTEMI (non-ST elevated myocardial infarction) (Primary Dx) Discharge Disposition: Home 06/29/2024 7:25 PM EDT Ancillary [place] [phone] Deacon Watters, [employer] 06/29/2024 [place] [address] Ramakrishna Elliott MD 06/29/2024 External [place] [address] 06/22/2024 8:00 AM EDT Office Visit [facility] [place] [address] Trung Hoyos MD Radiculopathy of cervical region (Primary Dx) 06/22/2024 Travel 06/09/2024 Telephone [place] [address] Marcelle [place], JAZMINE 06/07/2024 1:20 PM EDT Office Visit Dermatology at [address] [address] Gómez Mercer MD Tinea cruris 06/07/2024 12:55 PM EDT - 06/07/2024 11:59 PM EDT Hospital [place] [address] Left sided colitis without complications Discharge Disposition: Home 06/06/2024 12:56 PM EDT - 06/06/2024 11:59 PM EDT Hospital [place] [address] Left sided colitis without complications Discharge Disposition: Home 06/06/2024 8:00 AM EDT Office [place] [address] Marcelle Weinberg, [employer] Left sided colitis without complications 06/06/2024 [place] [address] Marcelle Weinberg, JAZMINE 06/06/2024 Travel from Last 3 Months Social History Tobacco Use Types Packs/Day Years Used Date Smoking Tobacco: Former Cigarettes 4 30 1 12/01/1961 - 10/01/1992 Smokeless Tobacco: Former Chew Comments:Denies vaping Alcohol Use Standard Drinks/Week Comments Yes 0 (1 standard drink = 0.6 oz pur e alcohol) twice a year [facility] Utilities Answer Date Recorded In the past 12 months has th e electric, gas, oil, or water company threatened to shut off services in your [...] any time in the past 12 m [facility], were you homeless or living in a care home (including now)? No 07/01/2024 DH IPV Inpatient Questions Answer Date Recorded Does [...] Sign Reading Time Taken Comments Blood Pressure 138/76 07/04/2024 11:16 AM EDT Pulse 74 07/04/2024 11:19 AM EDT Temperature 36.3 ??C (97.4 ??F) 07/04/2024 1 1:15 AM EDT Respiratory Rate 18 07/04/2024 11:1 5 AM EDT Oxygen Saturation 96% 07/04/2024 11: 15 AM EDT Inhaled Oxygen Concentration - - Weight 111.4 kg (245 lb 9.5 oz) 07/04/2024 3:20 AM EDT Height 193 cm (6' 4) 06/30/2024 3:47 PM EDT Body Mass Index 29.89 06/30/2024 3:47 PM EDT Plan of Treatment Upcoming Encounters Date Type Department Care Team (Late st Contact Info) Description 08/15/2024 9:00 AM EDT Office [place] [phone] Dion Barlow MD [facility] [place] [address] 09/01/2024 9:40 AM EDT Office Visit Cardiology at [address] [address] Franky Shaver MD [facility] [place] [address] 09/01/2024 11:20 AM EDT Office Visit Dermatology at [facility] [address] [place] [phone] Gómez Mercer MD [facility] DR EDDIE [place] [address] 09/21/2024 2:45 PM EDT Office Visit [place] [phone] Trung Hoyos MD [facility] [place] [address] Health Maintenance Due Date Last Done Comments CT Colonography 1948 FIT DNA 1948 FIT 1948 Pneumoccocal Vaccine: 65+ (1 of 2 - PCV) 1954 DM Opthalmology Exam 1958 DM Urine Microalbumin yearly 1958 Hepatitis C Screening 1966 Tdap adult 1967 Tetanus vaccine 1967 Zoster vaccine (1 of 2) 1998 Sigmoidoscopy 03/16/2017 03/16/2012, 03/16/2012 Covid-19 Vaccine (1 - 2022-2 4 season) 2023 Influenza (Flu) vaccine (1 o f 1 - Influenza standard series) 07/24/2024 DM Hemoglobin A1c 6 month 12/31/2024 06/30/2024 DM Creatinine yearly 07/04/2025 07/04/2024, 07/03/2024, 07/02/2024, Additional history exists Colonoscopy 01/20/2026 01/20/2024, 12/25, 03/28/2022, Additional history exists Colorectal Cancer Screening 01/20/2026 Sigmoidoscopy (10 year) with FIT yearly 01/20/2034 01/20/2024, 01/20/2024, 03/28/2022, Additional history exists Lipid Screening Discontinued 06/30/2024 Procedures Procedure Name Priority Date/Time Associated Diagnosis Comments POC, GLUCOSE Routine 07/04/2024 1:49 PM EDT POC, GLUCOSE Routine 07/04/2024 11:55 AM EDT POC, GLUCOSE Routine 07/04/2024 11:18 AM EDT POC, GLUCOSE Routine 07/04/2024 8:04 AM EDT SCAN DOC: TELEMETRY STRIPS 07/04/2024 7:32 AM EDT SCAN DOC: TELEMETRY STRIPS 07/04/2024 7:32 AM EDT MAGNESIUM Routine 07/04/2024 1:43 AM EDT BASIC METABOLIC PANEL Routine 07/04/2024 1:43 AM EDT CBC (WITH DIFF) Routine 07/04/2024 1:43 AM EDT SCAN DOC: TELEMETRY STRIPS 07/04/2024 1:31 AM EDT SCAN DOC: TELEMETRY STRIPS 07/03/2024 10:33 PM EDT SCAN DOC: TELEMETRY STRIPS 07/03/2024 10:31 PM EDT POC, GLUCOSE Routine 07/03/2024 8:02 PM EDT POC, GLUCOSE Routine 07/03/2024 4:47 PM EDT URINALYSIS BEAKER MICROSCPIC REFLEX EXAM ([facility]) Routine 07/03/2024 3:02 PM EDT URINALYSIS MICROSCOPIC WITH REFLEX TO CULTURE Routine 07/03/2024 3:02 PM EDT URINALYSIS WITH REFLEX CULTURE Routine 07/03/2024 3:02 PM EDT URINE CULTURE Routine 07/03/2024 3:02 PM EDT POC, GLUCOSE Routine 07/03/2024 11:21 AM EDT SCAN DOC: TELEMETRY STRIPS 07/03/2024 10:20 AM EDT POC, GLUCOSE Routine 07/03/2024 7:24 AM EDT MAGNESIUM Routine 07/03/2024 4:02 AM EDT BASIC METABOLIC PANEL Routine 07/03/2024 4:02 AM EDT CBC (WITH DIFF) Routine 07/03/2024 4:02 AM EDT SCAN DOC: TELEMETRY STRIPS 07/02/2024 11:43 PM EDT POC, GLUCOSE Routine 07/02/2024 8:45 PM EDT SCAN DOC: TELEMETRY STRIPS 07/02/2024 7:58 PM EDT POC, GLUCOSE Routine 07/02/2024 4:18 PM EDT SCAN DOC: TELEMETRY STRIPS 07/02/2024 12:05 PM EDT POC, GLUCOSE Routine 07/02/2024 11:21 AM EDT POC, GLUCOSE Routine 07/02/2024 7:28 AM EDT SCAN DOC: TELEMETRY STRIPS 07/02/2024 7:24 AM EDT MAGNESIUM Routine 07/02/2024 7:12 AM EDT BASIC METABOLIC PANEL Routine 07/02/2024 7:12 AM EDT CBC (WITH DIFF) Routine 07/02/2024 7:[address] ABDOMEN AND PELVIS W CONTRAST Routine 07/02/2024 3:13 AM EDT SCAN DOC: TELEMETRY STRIPS 07/02/2024 2:24 AM EDT SCAN DOC: TELEMETRY STRIPS 07/01/2024 10:00 PM EDT POC, GLUCOSE Routine 07/01/2024 7:58 PM EDT POC, GLUCOSE Routine 07/01/2024 6:41 PM EDT EKG 12-LEAD Routine 07/01/2024 5:24 PM EDT NSTEMI (non-ST elevated myocardial infarction) CARDIAC CATHETERIZATION Routine 07/01/20 5:00 PM EDT SCAN DOC: TELEMETRY STRIPS 07/01/2024 11:55 AM EDT POC, GLUCOSE Routine 07/01/2024 11:35 AM EDT HEMOGRAM Routine 07/01/2024 10:32 AM EDT HEPARIN (UNFRACTIONATED) LEVEL Timed 07/01/2024 10:32 AM EDT SCAN DOC: TELEMETRY STRIPS 07/01/2024 7:34 AM EDT POC, GLUCOSE Routine 07/01/2024 7:18 AM EDT HEPARIN (UNFRACTIONATED) LEVEL Timed 07/01/2024 3:15 AM EDT CBC (WITH DIFF) Routine 07/01/2024 3:15 AM EDT MAGNESIUM Routine 06/30/2024 11:25 PM EDT BASIC METABOLIC PANEL Routine 06/30/2024 11:25 PM EDT TROPONIN-T, HIGH SENSITIVITY 3 HOUR PERFORMABLE STAT 06/30/2024 11:25 PM EDT SCAN DOC: TELEMETRY STRIPS 06/30/2024 10:02 PM EDT TROPONIN-T, HIGH SENSITIVITY 1 HOUR PERFORMABLE STAT 06/30/2024 8:22 PM EDT POC, GLUCOSE Routine 06/30/2024 7:56 PM EDT SCAN DOC: TELEMETRY STRIPS 06/30/2024 7:32 PM EDT XR ABDOMEN FLAT AND UPRIGHT Routine 06/30/2024 6:56 PM EDT TROPONIN-T, HIGH SENSITIVITY INITIAL PERFORMABLE STAT 06/30/2024 6:09 PM EDT TROPONIN - SERIES STAT 06/30/2024 6:0 9 PM EDT LIPID PANEL (REFLEX DIRECT LDL) Routine 06/30/2024 6:09 PM EDT PRO-BRAIN NATRIURETIC PEPTIDE Routine 06/30/2024 6:09 PM EDT TSH Routine 06/30/2024 6:09 PM EDT BASIC METABOLIC PANEL Routine 06/30/2024 6:09 PM EDT HEPARIN (UNFRACTIONATED) LEVEL Timed 06/30/2024 6:08 PM EDT HEMOGLOBIN A1C Routine 06/30/2024 6:08 PM EDT CBC (WITH DIFF) Routine 06/30/2024 6:08 PM EDT POC, GLUCOSE Routine 06/30/2024 5:58 PM EDT EKG 12-LEAD Routine 06/30/2024 5:23 PM EDT NSTEMI (non-ST elevated myocardial infarction) ECHO COMPLETE W CONTRAST Routine 06/30/2024 5:22 PM EDT NSTEMI (non-ST elevated myocardial infarction) SCAN DOC: TELEMETRY STRIPS 06/30/2024 4:48 PM EDT SCAN DOC: TELEMETRY STRIPS 06/30/2024 3:59 PM EDT EKG 12-LEAD Routine 06/30/2024 3:53 PM EDT EKG 12-LEAD Routine 06/30/2024 3:53 PM EDT EKG 12-LEAD STAT 06/30/2024 3:53 PM EDT NSTEMI (non-ST elevated myocardial infarction) FILM LIBRARY STORAGE ONLY DX CHEST Routine [...] sided colitis without complications DIFFERENTIAL, AUTOMATED Routine 06/06/20 9:04 AM EDT Left sided colitis without complications HEMOGRAM Routine 06/06/2024 9:04 AM EDT Left sided colitis without complications CBC (WITH DIFF) Routine 06/06/2024 9:04 AM EDT Left sided colitis without complications COMPREHENSIVE METABOLIC PANEL Routine 06/06/2024 9:04 AM EDT Left sided colitis without complications SEDIMENTATION RATE Routine 06/06/2024 9: 04 AM EDT Left sided colitis without complications CRP, ACUTE INFLAMMATION Routine 06/06/20 9:04 AM EDT Left sided colitis without complications COLONOSCOPY Routine 01/20/2024 10:01 AM EST FLEXIBLE SIGMOIDOSCOPY Routine 2 1:15 PM EDT Ulcerative colitis from Last 3 Months or Most Recently Relevant to Health Maintenance Results * (ABNORMAL) POC, GLUCOSE (07/04/2024 1:49 PM EDT) Only the most recent of18 resultswithin the time period is included. Pathologist [facility] Glucometer, POC 274(H) 65 - 199 mg/dL 07/04/2024 2:12 PM EDT [facility] Comment:Supplemental ranges: <140 mg/dL before meals <180 mg/dL all other times of the day. Blood CAPILLARY BLOOD / Unknown 07/04/2024 1:49 PM EDT 07/04/2024 2:12 PM EDT Armond Denny MD POINT OF CARE TEST O RDERABLES [facility] [place] [place] [address] * Scan Doc: Telemetry Strips (07/04/2024 7:32 AM EDT) Only the most recent of18 resultswithin the time period is included. Narrative 07/04/2024 7:32 AM EDT Ordered by an unspecified provider. Scanning Provider MEDIA MGR SCAN EXT O RDR/RSLT * (ABNORMAL) CBC (with Diff) (07/04/2024 1:43 AM EDT) Only the most recent of5 resultswithin the time period is included. [facility] White Blood Cell 5.05 4.00 - 9.50 x10(3)/mc L 07/04/2024 2:00 AM EDT [facility] Red Blood Cell 3.11(L) 4.58 - 5.54 x10(6)/mc L 07/04/2024 2:00 AM EDT [facility] Hemoglobin 10.5(L) 13.7 - 16.5 g/dL 07/04/2024 2:00 AM EDT [facility] Hematocrit 31.5(L) 40.5 - 48.5 % 07/04/2024 2:00 AM EDT [facility] Mean Cell Volume 101.3(H) 82.9 - 93.1 fL 07/04/2024 2:00 AM EDT [facility] Mean Cell Hemoglobin 33.8(H) 27.5 - 32.1 pg 07/04/2024 2:00 AM [facility] Mean Cell Hemoglobin Concentration 33.3 32.0 - 35.7 g/dL 07/04/2024 2:00 AM [facility] Platelet 145 145 - 357 x10(3)/mc L 07/04/2024 2:00 AM [facility] Mean Platelet Volume 11.5 7.6 - 12.9 fL 07/04/2024 2:00 AM [facility] RDW Standard Deviation 48.2(H) 36.0 - 45.0 fL 07/04/2024 2:00 AM [facility] RDW coefficient of variation 13.1 11.4 - 13.8 % 07/04/2024 2:00 AM [facility] NRBC% auto 0.0 % 07/04/2024 2:00 AM [facility] NRBC Absolute 0.00 0.00 - 0.00 x10(3)/mc L 07/04/2024 2:00 AM [facility] Neutrophil % 65.9 % 07/04/2024 2:00 AM [facility] Neutrophil Absolute 3.33 1.70 - 6.10 x10(3)/mc L 07/04/2024 2:00 AM [facility] Lymph % 20.8 % 07/04/2024 2:00 AM [facility] Lymph Absolute 1.05 0.90 - 3.20 x10(3)/mc L 07/04/2024 2:00 AM [facility] Monocyte % 9.3 % 07/04/2024 2:00 AM [facility] Monocyte Absolute 0.47 0.30 - 0.90 x10(3)/mc L 07/04/2024 2:00 AM [facility] Eos % 3.0 % 07/04/2024 2:00 AM [facility] Eos Absolute 0.15 0.00 - 0.40 x10(3)/mc L 07/04/2024 2:00 AM EDT [facility] Basophil % 0.6 % 07/04/2024 2:00 AM EDT [facility] Baso Absolute 0.03 0.00 - 0.10 x10(3)/mc L 07/04/2024 2:00 AM EDT [facility] Immature Gran % 0.4 % 2:00 AM EDT [facility] Immature Gran Absolute 0.02 0.00 - 0.04 x10(3)/mc L 07/04/2024 2:00 AM EDT [facility] Blood VENOUS BLOOD SPECIMEN / Unknown IP Care Team Draw / Unknown 07/04/2024 1:43 AM EDT 07/04/2024 1:52 AM EDT Triston Godinez MD HEMATOLOGY ORDERABLE S [facility] [place] [address] * Magnesium (07/04/2024 1:43 AM EDT) Only the most recent of4 resultswithin the time period is included. Magnesium 0.80 0.69 - 1.07 mMol/L 07/04/2024 2:23 AM EDT [facility] Blood VENOUS BLOOD SPECIMEN / Unknown IP Care Team Draw / Unknown 07/04/2024 1:43 AM EDT 07/04/2024 1:52 AM EDT Triston Godinez MD CHEMISTRY ORDERABLES Performing Organization Address City/[facility]/ZIP Co de Phone Number [facility] [place] [address] * (ABNORMAL) Basic Metabolic Panel (07/04/2024 1:43 AM EDT) Only the most recent of5 resultswithin the time period is included. Glucose 156 65 - 199 mg/dL 07/04/2024 2:23 AM [facility] Comment:Glucose Concentratio n >=200 mg/dL plus symptoms is consistent with Diabetes Mellitus. Blood Urea Nitrogen 12 10 - 20 mg/dL 07/04/2024 2:23 AM [facility] Creatinine 1.27 0.80 - 1.50 mg/dL 07/04/2024 2:23 AM [facility] Sodium 141 135 - 145 mMol/L 07/04/2024 2:23 AM [facility] Potassium 3.9 3.5 - 5.0 mMol/L 07/04/2024 2:23 AM [facility] Chloride 108(H) 98 - 107 mMol/L 07/04/2024 2:23 AM [facility] Carbon Dioxide 22 22 - 31 mMol/L 07/04/2024 2:23 AM [facility] Anion Gap 11 5 - 15 mMol/L 07/04/2024 2:23 AM [facility] Calcium 9.4 8.5 - 10.5 mg/dL 07/04/2024 2:23 AM [facility] Est Glomerular Filtration Rate - Male 59 mL/min/1. 73 m?? 07/04/2024 2:23 AM [facility] Comment: This patient's estimated [...] urine creatinine clearance. Assignment of CKD stage 1 - 5 for patients with an eGFR near the transition point between stages may be based on clinical assessment of muscle mass and symptoms in addition to eGFR. Link: eGFR Calculator [employer] Blood VENOUS BLOOD SPECIMEN / Unknown IP Care Team Draw / Unknown 07/04/2024 1:43 AM EDT 07/04/2024 1:52 AM EDT Triston Godinez MD CHEMISTRY ORDERABLES Performing Organization Address [facility] Co de Phone Number [facility] [place] [address] * (ABNORMAL) Urinalysis Microscopic Reflex to Culture (07/03/2024 3:02 PM EDT) RBC, Urine 2 0 - 3 /HPF 07/03/2024 3:40 PM EDT [facility] WBC, Urine 55(H) 0 - 3 /HPF 07/03/2024 3:40 PM EDT [facility] Squamous Epithelial Cells, Urine 1 0 - 5 /HPF 07/03/2024 3:40 PM EDT [facility] Hyaline Casts, Urine 3(H) 0 - 2 /LPF 07/03/2024 3:40 PM EDT [facility] Comment 07/03/2024 3:40 PM EDT [facility] Comment:Interpret results wi th caution, microscopic results are from a suboptimal specimen. Bacteria, Urine Many(A) None /HPF 3:40 PM EDT [facility] Urine URINE SPECIMEN OBTAINED BY CLEAN CATCH PROCEDURE / Unknown Non Blood Collection / Unknown 07/03/2024 3:02 PM EDT 07/03/2024 3:13 PM EDT Armond Denny MD URINE ORDERABLES Performing Organization Address [facility] Co de Phone Number [facility] [place] [address] * Urinalysis Microscopic with Reflex to Culture (07/03/2024 3:02 PM EDT) Urine URINE SPECIMEN OBTAINED BY CLEAN CATCH PROCEDURE / Unknown Non Blood Collection / Unknown 07/03/2024 3:02 PM EDT 07/03/2024 3:13 PM EDT Armond Denny MD URINE ORDERABLES [facility] [place] [place] [address] * (ABNORMAL) Urinalysis with reflex Culture (07/03/2024 3:02 PM EDT) Glucose, Urine Dipstick Negative Negative 07/03/2024 3:40 PM EDT [facility] Protein, Urine Dipstick 30 mg/dL(A) Negative 07/03/2024 3:40 PM EDT [facility] Bilirubin, Urine Dipstick Small(A) Negative 07/03/2024 3:40 PM EDT [facility] Comment:Clinical correlation required for positive Urine Bilirubin results as false positive may occur with some drugs and drug related products. If a false positive is suspected a serum total bilirubin should be considered if clinically indicated. Urobilinogen, Urine Dipstick Normal Normal, 0.2 mg/dL, 1.0 mg/dL 07/03/2024 3:40 PM EDT [facility] pH, Urine (dipstick) 5.5 5.0 - 8.0 07/03/2024 3:40 PM EDT [facility] Blood, Urine Dipstick Negative Negative 07/03/2024 3:40 PM EDT [facility] Ketone, Urine Dipstick Trace(A) Negative 07/03/2024 3:40 PM EDT [facility] Nitrite, Urine Dipstick Positive(A) Negative 07/03/2024 3:40 PM EDT [facility] Leukocytes, Urine Dipstick Moderate(A) Negative 07/03/2024 3:40 PM EDT [facility] Specific [place] Urine Automated 1.024 1.005 - 1.030 07/03/2024 3:40 PM EDT [facility] Appearance, Urine Dipstick Cloudy(A) Clear 07/03/2024 3:40 PM EDT [facility] Color, Urine Dipstick Dark Yellow Yellow, Dark Yellow 07/03/2024 3:40 PM EDT [facility] Urine URINE SPECIMEN OBTAINED BY CLEAN CATCH PROCEDURE / Unknown Non Blood Collection / Unknown 07/03/2024 3:02 PM EDT 07/03/2024 3:13 PM EDT Armond Denny MD URINE ORDERABLES [facility] [place] [address] * (ABNORMAL) Urine culture (07/03/2024 3:02 PM EDT) Urine Culture 50,000-99,000 cfu/ml Escherichia coli(A) VITEK 2 METHOD 07/05/2024 8:01 AM EDT [facility] Urine Culture 10,000-49,000 cfu/ml mixed mucosal harika VITEK 2 METHOD 07/05/2024 8:01 AM EDT [facility] Urine URINE SPECIMEN OBTAINED BY CLEAN CATCH PROCEDURE / Unknown Non Blood Collection / Unknown 07/03/2024 3:02 PM EDT 07/03/2024 3:13 PM EDT Narrative Organism Antibiotic Method Susceptibility Escherichia coli Ampicillin VITEK 2 METHOD >=32.0 ug/ml: Resistant Escherichia coli Ampicillin + Sulbactam VITEK 2 METHOD >=32.0 ug/ml: Resistant Escherichia coli Cefazolin (Systemic) VITEK 2 METHOD Resistant Escherichia coli Cefazolin (Urine) VITEK 2 METHOD Susceptible Escherichia coli Cefepime VITEK 2 METHOD <=0.12 ug/ml: Sensitive Escherichia coli Ceftriaxone VITEK 2 METHOD <=0.25 ug/ml: Sensitive Escherichia coli Ciprofloxacin VITEK 2 METHOD >=4.0 ug/ml: Resistant Escherichia coli Gentamicin VITEK 2 METHOD <=1.0 ug/ml: Sensitive Escherichia coli Levofloxacin VITEK 2 METHOD >=8.0 ug/ml: Resistant Escherichia coli Meropenem VITEK 2 METHOD <=0.25 ug/ml: Sensitive Escherichia coli Nitrofurantoin VITEK 2 METHOD <=16.0 ug/ml: Sensitive Escherichia coli Piperacillin/Tazobactam VITEK 2 METHO D >=128.0 ug/ml: Resistant Escherichia coli Trimethoprim/Sulfa VITEK 2 METHOD <=20.0 ug/ml: Sensitive Armond Denny MD MICROBIOLOGY - GENER AL ORDERABLES [facility] [address] [place] [address] * CT Abdomen & Pelvis w Contrast (07/02/2024 3:13 AM EDT) WORKSTATION ID [id number] RAD Anatomical Region Laterality Modality Abdomen, Pelvis Computed Tomogra phy Impressions 07/02/2024 9:20 AM EDT 1. ??No acute infectious/inflammatory process. 2. ??Diverticulosis with no evidence of acute diverticulitis. 3. ??Similar appearance of nonspecific bilateral perinephric fat stranding. This can be a normal incidental finding in a patient of this age. Suggest correlation with urinalysis to exclude urinary tract infection. Thank you for letting us participate in the care of this patient. ??If you are a health care provider and have any questions regarding this report, please contact the number below. ??For patients who have questions please contact the health morning caregiver that requested your imaging first. ? Narrative 07/02/2024 9:20 AM EDT EXAMINATION: CT ABDOMEN AND PELVIS W CONTRAST CLINICAL HISTORY: History of UC with worsening stomach pain and emesis. Additional history includes recent cardiac catheterization. TECHNIQUE: Helical CT of the abdomen and pelvis following the intravenous administration of contrast. 120 cc of Omnipaque 350 was administered.. Oral contrast was not administered. COMPARISON: CT abdomen pelvis 09/29/2022 FINDINGS: Lower chest: No airspace opacity to suggest pneumonia. No pleural effusions. Mild subsegmental atelectasis in the lung bases. Partial visualized left coronary artery atherosclerotic disease versus stent. Liver: Normal size contour and attenuation. No focal liver lesions. Bile ducts: Nondilated. Gallbladder: Status post cholecystectomy with surgical clips present. Pancreas: Normal attenuation without ductal dilatation. Spleen: Normal size. There are two 1 cm enhancing lesions within the superior spleen (series 3 image 20), unchanged compared to 09/29/2022, likely flash filling hemangiomas. Additional 1.3 cm enhancing lesion within the posterior inferior spleen, also likely hemangioma and also unchanged. Adrenals: Normal. Kidneys: Normal renal size. Normal symmetric renal enhancement. No hydronephrosis. There is contrast opacification of the nondilated renal collecting systems and ureters. Similar appearance of nonspecific perinephric fat stranding. Unchanged 3.6 cm right upper pole renal cyst. Unchanged 1 cm low-attenuation lesion within the lateral left kidney, too small to characterize but likely cyst. Additional unchanged sub-1 cm low-attenuation lesion in the left lower pole, also likely cyst (series 3 image 91). Urinary Bladder: Nondistended. There is excreted contrast material within the bladder lumen. Vasculature: Atherosclerotic disease of the nonaneurysmal abdominal aorta. The origins of the celiac axis and SMA are widely patent. Normal caliber of the IVC. The portal vein and hepatic veins are patent. Lymph Nodes: No lymphadenopathy. Bowel: Normal lower esophagus, stomach and duodenum. No air or fluid filled dilated loops of bowel to suggest obstruction. Small quantity of stool throughout the colon. Extensive sigmoid colon diverticulosis with no evidence of acute diverticulitis. Enteric contrast reaches the distal transverse colon. Normal terminal ileum. The appendix is not identified. No bowel wall thickening. Peritoneum and retroperitoneum: Aforementioned nonspecific bilateral perinephric fat stranding is similar to the prior study. No free fluid. No loculated collection to suggest abscess. No free air. Abdominal wall: There is a 5.3 cm impression on the right inguinal region with dressing material present (axial series 3 image 173). No adjacent subcutaneous hematoma or collection. Unchanged fat within the right spermatic cord, with no adjacent inflammation. Reproductive organs: Unchanged mild prostatomegaly with coarse calcifications along the prostatic base. Normal seminal vesicles. Osseous structures: No acute osseous findings. No suspicious osseous lesions. Similar appearance of moderate to severe disc degenerative changes at L2-L3. Prominent enthesophytes along the anterior right iliac crest are also unchanged. Unchanged 7 mm focal sclerotic lesion in the posterior medial left iliac bone (series 3 image 133), likely bone island. Procedure Note Gutierrez Hamilton MD - 07/02/2024 EXAMINATION: CT ABDOMEN AND PELVIS W CONTRAST CLINICAL HISTORY: History of UC with worsening stomach pain and emesis. Additional history includes recent cardiac catheterization. TECHNIQUE: Helical CT of the abdomen and pelvis following theintravenous administration of contrast. 120 cc of Omnipaque 350 was administered..Oral contrast was not administered. COMPARISON: CT abdomen pelvis 09/29/2022 FINDINGS: Lower chest: No airspace opacity to suggest pneumonia. No pleuraleffusions. Mild subsegmental atelectasis in the lung bases. Partial visualized left coronary artery atherosclerotic disease versus stent. Liver: Normal size contour and attenuation. No focal liver lesions. Bile ducts: Nondilated. Gallbladder: Status post cholecystectomy with surgical clips present. Pancreas: Normal attenuation without ductal dilatation. Spleen: Normal size. There are two 1 cm enhancing lesions within thesuperior spleen (series 3 image 20), unchanged compared to 09/29/2022, likelyflash filling hemangiomas. Additional 1.3 cm enhancing lesion within theposterior inferior spleen, also likely hemangioma and also unchanged. Adrenals: Normal. Kidneys: Normal renal size. Normal symmetric renal enhancement. No hydronephrosis. There is contrast opacification of the nondilated renal collecting systems and ureters. Similar appearance of nonspecificperinephric fat stranding. Unchanged 3.6 cm right upper pole renal cyst. Unchanged 1cm low-attenuation lesion within the lateral left kidney, too small tocharacterize but likely cyst. Additional unchanged sub-1 cm low-attenuation lesion inthe left lower pole, also likely cyst (series 3 image 91). Urinary Bladder: Nondistended. There is excreted contrast material withinthe bladder lumen. Vasculature: Atherosclerotic disease of the nonaneurysmal abdominal aorta.The origins of the celiac axis and SMA are widely patent. Normal caliber ofthe IVC. The portal vein and hepatic veins are patent. Lymph Nodes: No lymphadenopathy. Bowel: Normal lower esophagus, stomach and duodenum. No air or fluidfilled dilated loops of bowel to suggest obstruction. Small quantity of stool throughout the colon. Extensive sigmoid colon diverticulosis with noevidence of acute diverticulitis. Enteric contrast reaches the distal transversecolon. Normal terminal ileum. The appendix is not identified. No bowel wallthickening. Peritoneum and retroperitoneum: Aforementioned nonspecific bilateralperinephric fat stranding is similar to the prior study. No free fluid. No loculated collection to suggest abscess. No free air. Abdominal wall: There is a 5.3 cm impression on the right inguinal regionwith dressing material present (axial series 3 image 173). No adjacentsubcutaneous hematoma or collection. Unchanged fat within the right spermatic cord,with no adjacent inflammation. Reproductive organs: Unchanged mild prostatomegaly with coarsecalcifications along the prostatic base. Normal seminal vesicles. Osseous structures: No acute osseous findings. No suspicious osseouslesions. Similar appearance of moderate to severe disc degenerative changes atL2-L3. Prominent enthesophytes along the anterior right iliac crest are alsounchanged. Unchanged 7 mm focal sclerotic lesion in the posterior medial left iliacbone (series 3 image 133), likely bone island. IMPRESSION 1. No acute infectious/inflammatory process. 2. Diverticulosis with no evidence of acute diverticulitis. 3. Similar appearance of nonspecific bilateral perinephric fat stranding.This can be a normal incidental finding in a patient of this age. Suggestcorrelation with urinalysis to exclude urinary tract infection. Thank you for letting us participate in the care of this patient. If youare a health care provider and have any questions regarding this report,please contact the number below. For patients who have questions please contactthe health morning caregiver that requested your imaging first. Electronically signed by: Gutierrez Hamilton MD, [facility]([phone]), at 07/02/2024 9:20 AM Triston Godinez MD IMG CT ORDERABLES * EKG 12 Lead (07/01/2024 5:24 PM EDT) Only the most recent of3 resultswithin the time period is included. Ventricular rate 77 BPM MUSE SYSTEM Atrial Rate 77 BPM MUSE SYSTEM P-R Interval 178 ms MUSE SYSTEM QRS Duration 138 ms MUSE SYSTEM Q-T Interval 418 ms MUSE SYSTEM QTC Calculated (Bezet) 473 ms MUSE SYSTEM Calculated P Fielding 63 degrees MUSE SYSTEM Calculated R Fielding 87 degrees MUSE SYSTEM Calculated T Fielding 8 degrees MUSE SYSTEM INTERPRETATION Normal sinus rhythm Right bundle branch block Cannot rule out Inferior infarct , age undetermined Abnormal ECG When compared with ECG of 30-JUN-2024 17:23, Right bundle branch block is now Present Criteria for Septal infarct are no longer Present Confirmed by MD Melo Katharine ([id number]) on 07/03/2024 2:47:21 PM MUSE SYSTEM 07/01/2024 5:24 PM EDT 07/03/2024 2:47 PM EDT Lizzette Hayden MD ECG ORDERABLES MUSE SYSTEM * CARDIAC CATHETERIZATION (07/01/2024 5:00 PM EDT) Anatomical Region Laterality Modality Other Narrative 07/01/2024 7:47 PM EDT ?[facility] ? Cardiac Catheterization/Intervention Report ? Patient Name: Naya Rodriguez. ? Procedure Date: 07/01/2024 ? A #: [id number] ? Primary Physician: Mogadam, Emad ? Case #: [id number] ? File Name: [id number] ? Catheterization Order Number: [id number] ? [facility] ? Final Report [place], [place] ? Patient Name: ? Naya M. Rodriguez ?ID#: ?[id number] ? : ?1950 ? Procedure Date: ? July 01, 2024 ? Case #: ? [id number] ? Room: ? 5 ? Case Physician: ? Emad Bernice Hayden. ? Start: ?15:10 ?Fellow: ? Waqar Vega M.D. ? Admission: ??06/30/2024 ?Elmo Byrd M.D. ? Referring Physician: ??Kenji Thomas M.D. ? Procedures: ?* Coronary Angiography ?* Left Heart Catheterization ?* Coronary Stent Insertion ?* Vascular Closure Device Deployment ?* Access Site Angiography ?* Vascular Ultrasound ? History ?Naya Rodriguez is a 74 year old man. He has hypertension. The patient's ?smoking status is Former. He has hypercholesterolemia managed with lipid ?therapy. The patient has diabetes managed by diet and oral medication. He ?has a history of an ejection fraction less than or equal to 35%. The ?patient has a history of CHF. The CHF is NYHA Functional Class II, is ?newly diagnosed and is classified as Systolic. Prior to the initiation of ?this procedure, the patient was designated as ASA Class III. The CSHA ?clinical frailty scale is 4: Vulnerable. ? Diagnostic Tests: ?Medications Prior to Procedure: ? Aspirin, Angiotensin II Receptor Marci and Statin. ? Indications for Diagnostic Cath: ?The priority of the diagnostic procedure was Urgent. The indication for ?the computer laboratory technician visit is ACS less than or equal to 24 hrs and LV ?dysfunction. Chest pain symptom assessment was: Typical Angina. ? Technique: ?A 6 SLFr sheath was inserted in the right radial artery utilizing the ?Seldinger technique. A 6Fr sheath was inserted in the right femoral ?artery utilizing the Seldinger technique. The left coronary artery was ?injected utilizing a 6Fr JL 3.5 catheter. A 6Fr AL-1 catheter was used to ?inject the right coronary artery. Left ventricular pressure was performed ?utilizing a 6Fr JR 4 catheter. Coronary stent insertion was performed and ?the equipment utilized will be described in the intervention summary ?section. 17,000 units of heparin were administered. A total of 200cc of ?Omnipaque were opened and 200cc of Omnipaque were administered. ?Radiation: Fluoro time was 37.0 minutes, dose area product was 131.00 ?Gy/cm2 and air kerma was 1,874 mGY. See the case log for additional ?details. ?The patient received the following medications prior to and during the ?procedure: ? Unfractionated Heparin. ? Hemodynamics: ?Left Heart Pressures ? Resting: ? Syst Diast ? EDP ?a ?v ? m ?Ao 77 ?48 ?58 ?LV 81 ?10 ? Coronary Angiography: ?Dominance: Right ?Left Main ? There was mild diffuse (<=25% stenosis) disease of the entire vessel ? segment of the left main artery. ?Left Anterior Descending ? There was mild diffuse (<=25% stenosis) disease of the entire vessel ? segment of the left anterior descending artery (LAD). ?Left Circumflex ? There was a 90% stenosis of the mid segment of the left circumflex ? artery (LCX). ?Right Coronary Artery ? There was mild diffuse (<=25% stenosis) disease of the entire vessel ? segment of the right coronary artery (RCA). ? Indication for Intervention: ?Coronary intervention was indicated for primary therapy for an acute ?myocardial infarction. The priority for the procedure was Urgent. The ?NCDR indication for the procedure was NSTE-ACS. Syntax Score was Low. ? Intervention Summary: ?Left Circumflex Artery ? Mid 90% ? Stent insertion was performed on the 90% stenosis in the mid ? segment of the LCX. This was a de monalisa lesion. According to ? the ACC/AHA classification system, this lesion was a type B2 ? high risk lesion. Management of threatened closure was the ? indication for stent insertion. This was the culprit lesion. A ? guidewire was placed across this lesion. Vessel flow pre ? intervention was PAYAL 3. Lesion length was 20mm. The lesion ? involves a bifurcation with the OM2. This bifurcation lesion ? was treated with a single stent, side branch jailed and not ? treated technique. ? Stent insertion was accomplished through a 6 Fr. EBU 3.75 ? guide. ??The lesion was predilated with a 2.50mm EUPHORA 15 MM ? balloon with a maximum inflation pressure of 14 atmospheres. ? A premounted 2.75 x 22 mm [place] [employer] (EILEEN) was deployed ? with a maximum inflation pressure of 12 atmospheres. ? The final outcome was defined as successful. There was no ? residual stenosis following this intervention. The final PAYAL ? flow was 3. ? Vascular Access: ?Vascular Access Angiogram: ? A selective angiogram at the right femoral artery revealed no ? significant obstructive disease. ?Vascular Ultrasound: ? Ultrasound of the right femoral artery was used to guide access and ? showed vessel patent with no disease. Needle entry was observed. ?Vascular Access Management: ? Mechanical Compression of the right radial artery access site was ? performed. ? A 6 Fr Perclose was deployed at the right femoral artery access ? site. This device was successful. ? Dual Antiplatelet (DAPT) Recommendations: ?Drug eluting stent (EILEEN) inserted. ?P2Y12 Loading dose administered prior to arrival in the computer laboratory technician. ?Recommended anti-platelet/anti-thrombotic regimen: ?Continue aspirin 81 mg daily. ?Continue clopidogrel 75 mg daily. ?These recommendations are made at the time of the intervention. Patient ?and provider preferences or a changing clinical situation may require ?modification of this regimen. Consult [facility] [place] for ?questions. ?This patient has a high DAPT score and may benefit from prolonged (12-30 ?months) dual antiplatelet therapy if the patient has completed 12 months ?of DAPT without having a major bleeding or ischemic event and the patient ?is NOT on chronic anticoagulation. This should be used for guidance in ?the overall conversation about prolonged dual antiplatelet therapy and ?not as a recommendation for or against any medical treatment. Consult ?http://tools.acc.org/DAPTriskapp/#!/content/calculator/ or [facility] [place]ventional Cardiology for questions ? Conclusions: ?* One vessel coronary artery disease (LCX) ?* Successful stent insertion of the mid LCX lesion ?* See Dual Antiplatelet (DAPT) Recommendations above ? Complications/Events: ?The patient had no complications during these procedures. ? Post Procedure Fluid Recommendations: ?IV fluid at 330 mL/hr for 4 hours for a total of 1,320 mL. These ?recommendations are made at the time of the procedure. Patient and ?provider preferences or a changing clinical situation may require ?modification of this regimen. ? Recommendations: ?Based upon the results of these procedures, it was recommended that the ?patient be managed with medical therapy and have coronary intervention. ?The attending physician was present for the entire procedure. ?Dr. Lizzette Hayden M.D. was present during the moderate sedation ?intraservice time as documented by the sedation nurse. ??Case time = 01:43. ?Dr. Lizzette Hayden M.D. performed the coronary angiography, left heart ?catheterization, stent insertion-coronary, access site angiography, ?vascular ultrasound and vascular closure device. ? Lizzette Hayden M.D. ? Report Finalized: 07/01/2024 ??19:41 ? Procedure Note Lizzette Hayden MD - 07/01/2024 [facility] Cardiac Catheterization/Intervention Report Patient Name: Naya Rodriguez Procedure Date: 07/01/2024 A #: [id number] Primary Physician: Lizzette Hayden Case #: [id number] File Name: [id number] Catheterization Order Number: [id number] [facility] FinalReport [place], [place] Patient Name: Naya Rodriguez ID#:[id number] :1950 Procedure Date: July 01, 2024 Case #: [id number] Room: 5 Case Physician: Lizzette Hayden M.D. Start: 15:10 Fellow: Waqar Vega M.D. Admission:06/30/2024 Elmo Byrd M.D. Referring Physician: Kenji Thomas M.D. Procedures: * Coronary Angiography * Left Heart Catheterization * Coronary Stent Insertion * Vascular Closure Device Deployment * Access Site Angiography * Vascular Ultrasound History Naya Rodriguez is a 74 year old man. He has hypertension. Thepatient's smoking status is Former. He has hypercholesterolemia managed withlipid therapy. The patient has diabetes managed by diet and oralmedication. He has a history of an ejection fraction less than or equal to 35%. The patient has a history of CHF. The CHF is NYHA Functional Class II,is newly diagnosed and is classified as Systolic. Prior to theinitiation of this procedure, the patient was designated as ASA Class III. [facility] is 4: Vulnerable. Diagnostic Tests: Medications Prior to Procedure: Aspirin, Angiotensin II Receptor Marci and Statin. Indications for Diagnostic Cath: The priority of the diagnostic procedure was Urgent. The indicationfor the computer laboratory technician visit is ACS less than or equal to 24 hrs and LV dysfunction. Chest pain symptom assessment was: Typical Angina. Technique: A 6 SLFr sheath was inserted in the right radial artery utilizingthe Seldinger technique. A 6Fr sheath was inserted in the right femoral artery utilizing the Seldinger technique. The left coronary arterywas injected utilizing a 6Fr JL 3.5 catheter. A 6Fr AL-1 catheter wasused to inject the right coronary artery. Left ventricular pressure wasperformed utilizing a 6Fr JR 4 catheter. Coronary stent insertion wasperformed and the equipment utilized will be described in the intervention summary section. 17,000 units of heparin were administered. A total of 200ccof Omnipaque were opened and 200cc of Omnipaque were administered. Radiation: Fluoro time was 37.0 minutes, dose area product pid634.00 Gy/cm2 and air kerma was 1,874 mGY. See the case log for additional details. The patient received the following medications prior to and duringthe procedure: Unfractionated Heparin. Hemodynamics: Left Heart Pressures Resting: Syst Diast EDP a v m Ao 77 48 58 LV 81 10 Coronary Angiography: Dominance: Right Left Main There was mild diffuse (<=25% stenosis) disease of the entirevessel segment of the left main artery. Left Anterior Descending There was mild diffuse (<=25% stenosis) disease of the entirevessel segment of the left anterior descending artery (LAD). Left Circumflex There was a 90% stenosis of the mid segment of the leftcircumflex artery (LCX). Right Coronary Artery There was mild diffuse (<=25% stenosis) disease of the entirevessel segment of the right coronary artery (RCA). Indication for Intervention: Coronary intervention was indicated for primary therapy for an acute myocardial infarction. The priority for the procedure was Urgent.The NCDR indication for the procedure was NSTE-ACS. Syntax Score wasLow. Intervention Summary: Left Circumflex Artery Mid 90% Stent insertion was performed on the 90% stenosis in themid segment of the LCX. This was a de monalisa lesion. Accordingto the ACC/AHA classification system, this lesion was a typeB2 high risk lesion. Management of threatened closure wasthe indication for stent insertion. This was the culpritlesion. A guidewire was placed across this lesion. Vessel flow pre intervention was PAYAL 3. Lesion length was 20mm. Thelesion involves a bifurcation with the OM2. This bifurcationlesion was treated with a single stent, side branch jailed andnot treated technique. Stent insertion was accomplished through a 6 Fr. EBU 3.75 guide. The lesion was predilated with a 2.50mm VLARIGI94 MM balloon with a maximum inflation pressure of 14atmospheres. A premounted 2.75 x 22 mm [place] [employer] (EILEEN) wasdeployed with a maximum inflation pressure of 12 atmospheres. The final outcome was defined as successful. There was no residual stenosis following this intervention. The finalTIMI flow was 3. Vascular Access: Vascular Access Angiogram: A selective angiogram at the right femoral artery revealed no significant obstructive disease. Vascular Ultrasound: Ultrasound of the right femoral artery was used to guide accessand showed vessel patent with no disease. Needle entry wasobserved. Vascular Access Management: Mechanical Compression of the right radial artery access sitewas performed. A 6 Fr Perclose was deployed at the right femoral artery access site. This device was successful. Dual Antiplatelet (DAPT) Recommendations: Drug eluting stent (EILEEN) inserted. P2Y12 Loading dose administered prior to arrival in the computer laboratory technician. Recommended anti-platelet/anti-thrombotic regimen: Continue aspirin 81 mg daily. Continue clopidogrel 75 mg daily. These recommendations are made at the time of the intervention.Patient and provider preferences or a changing clinical situation mayrequire modification of this regimen. [place] [facility] [place]iology[place] questions. This patient has a high DAPT score and may benefit from prolonged(12-30 months) dual antiplatelet therapy if the patient has completed 12months of DAPT without having a major bleeding or ischemic event and thepatient is NOT on chronic anticoagulation. This should be used for guidancein the overall conversation about prolonged dual antiplatelet therapyand not as a recommendation for or against any medical treatment.Consult http://tools.acc.org/DAPTriskapp/#!/content/calculator/ or [facility] [place] for questions Conclusions: * One vessel coronary artery disease (LCX) * Successful stent insertion of the mid LCX lesion * See Dual Antiplatelet (DAPT) Recommendations above Complications/Events: The patient had no complications during these procedures. Post Procedure Fluid Recommendations: IV fluid at 330 mL/hr for 4 hours for a total of 1,320 mL. These recommendations are made at the time of the procedure. Patient and provider preferences or a changing clinical situation may require modification of this regimen. Recommendations: Based upon the results of these procedures, it was recommended thatthe patient be managed with medical therapy and have coronaryintervention. The attending physician was present for the entire procedure. Dr. Lizzette Hayden M.D. was present during the moderate sedation intraservice time as documented by the sedation nurse. Case time =01:43. Dr. Lizzette Hayden M.D. performed the coronary angiography, left heart catheterization, stent insertion-coronary, access site angiography, vascular ultrasound and vascular closure device. Lizzette Hayden M.D. Report Finalized: 07/01/2024 19:41 Lizzette Hayden MD CARDIAC CATH ORDERAB LES * Heparin (unfractionated) Level (07/01/2024 10:32 AM EDT) Only the most recent of3 resultswithin the time period is included. UF Heparin 0.31 IU/mL 07/01/2024 11:25 AM EDT [facility] Comment: Heparin (anti-Xa) levels should be determined in a plasma sample that has been drawn 6 hours after a dose change to approximate steady-state for continuous heparin infusions. Indication specific Heparin (anti-Xa) levels based on order set selection: Acute DVT or PE prevention: ? 0.3-0.7 IU/mL Thrombosis Prevention (e.g. atrial fibrillation, carey-procedural bridging, mechanical valves): ? 0.3-0.7 IU/mL Acute Coronary Syndrome: ? 0.3-0.7 IU/mL Stroke Indications: ? 0.3-0.5 IU/mL Ultra-low intensity (select indications in cardiac surgery): ? 0.1-0.3 IU/mL Blood VENOUS BLOOD SPECIMEN / Unknown IP Care Team Draw / Unknown 07/01/2024 10:32 AM EDT 07/01/2024 10:54 AM EDT Triston Godinez MD HEMATOLOGY ORDERABLE S [facility] [place] [place] [address] * (ABNORMAL) Hemogram (07/01/2024 10:32 AM EDT) Only the most recent of2 resultswithin the time period is included. White Blood Cell 7.02 4.00 - 9.50 x10(3)/mc L 07/01/2024 11:20 AM EDT [facility] Red Blood Cell 3.68(L) 4.58 - 5.54 x10(6)/mc L 07/01/2024 11:20 AM EDT [facility] Hemoglobin 12.2(L) 13.7 - 16.5 g/dL 07/01/2024 11:20 AM [facility] Hematocrit 36.5(L) 40.5 - 48.5 % 07/01/2024 11:20 AM [facility] Mean Cell Volume 99.2(H) 82.9 - 93.1 fL 07/01/2024 11:20 AM [facility] Mean Cell Hemoglobin 33.2(H) 27.5 - 32.1 pg 07/01/2024 11:20 AM [facility] Mean Cell Hemoglobin Concentration 33.4 32.0 - 35.7 g/dL 07/01/2024 11:20 AM [facility] Platelet 167 145 - 357 x10(3)/mc L 07/01/2024 11:20 AM [facility] Mean Platelet Volume 11.4 7.6 - 12.9 fL 07/01/2024 11:20 AM [facility] RDW Standard Deviation 46.5(H) 36.0 - 45.0 fL 07/01/2024 11:20 AM EDT [facility] RDW coefficient of variation 12.9 11.4 - 13.8 % 07/01/2024 11:20 AM EDT [facility] NRBC% auto 0.0 % 07/01/2024 11:20 AM EDT [facility] NRBC Absolute 0.00 0.00 - 0.00 x10(3)/mc L 07/01/2024 11:20 AM EDT [facility] Blood VENOUS BLOOD SPECIMEN / Unknown IP Care Team Draw / Unknown 07/01/2024 10:32 AM EDT 07/01/2024 10:54 AM EDT Armond Denny MD HEMATOLOGY ORDERABLE S [facility] [place] [place] [address] * (ABNORMAL) Troponin-T, Yruiy Sensitivity 3 Hour (06/30/2024 11:25 PM EDT) [facility] Troponin-T, High Sensitivity 1,274(H) <=22 ng/L 07/01/2024 12:14 AM EDT [facility] Comment: This patient's troponin T concentration was determined using the Avi 5th Generation troponin T assay. According to the fourth universal definition of myocardial infarction, the term acute myocardial infarction should be used when there is acute myocardial injury with clinical evidence of acute myocardial ischemia and with detection of a rise and/or fall of cardiac troponin values with at least one value above the 99th percentile and at least one of the following: - Symptoms of myocardial ischemia; - New ischemic ECG changes; - Development of pathological Q waves; - Imaging evidence of new loss of viable myocardium or new regional wall motion ?? abnormality in a pattern consistent with an ischemic etiology; - Identification of a coronary thrombus by angiography or autopsy (not for type 2 or 3 ?? MIs) Serial measurement of troponin and the change in troponin concentration over time (delta) is crucial for the diagnosis of acute myocardial infarction. Guidance on the interpretation of the new 5th Generation Troponin T values and the delta troponin value can be found in the [facility] Test Catalog Troponin - [email or web address]/catalogs/565/files/[email or web address] Reference: Fourth [place] Definition of Myocardial Infarction. Journal of the [place] College [employer] 2018;72:3072-9459 Troponin-T, HS 3 hr delta 65 ng/L 07/01/2024 12:14 AM EDT [facility] Comment:The 3 hour Troponin T delta value is the absolute difference between the Troponin T concentrations of the initial and subsequent sample collected between 2 h: 45 min and 6 h following the initial collection Blood VENOUS BLOOD SPECIMEN / Unknown IP Care Team Draw / Unknown 06/30/2024 11:25 PM EDT 06/30/2024 11:47 PM EDT Triston Godinez MD CHEMISTRY ORDERABLES [facility] [place] [place] [address] * (ABNORMAL) Troponin-T, High Sensitivity 1 Hour (06/30/2024 8:22 PM EDT) Pathologist [facility] Troponin-T, High Sensitivity 1,234(H) <=22 ng/L 06/30/2024 9:22 PM EDT [facility] Comment: This patient's troponin T concentration was determined using the Avi 5th Generation troponin T assay. According to the fourth universal definition of myocardial infarction, the term acute myocardial infarction should be used when there is acute myocardial injury with clinical evidence of acute myocardial ischemia and with detection of a rise and/or fall of cardiac troponin values with at least one value above the 99th percentile and at least one of the following: - Symptoms of myocardial ischemia; - New ischemic ECG changes; - Development of pathological Q waves; - Imaging evidence of new loss of viable myocardium or new regional wall motion ?? abnormality in a pattern consistent with an ischemic etiology; - Identification of a coronary thrombus by angiography or autopsy (not for type 2 or 3 ?? MIs) Serial measurement of troponin and the change in troponin concentration over time (delta) is crucial for the diagnosis of acute myocardial infarction. Guidance on the interpretation of the new 5th Generation Troponin T values and the delta troponin value can be found in the [facility] Test Catalog Troponin - https://[email or web address].testcatalog.org/catalogs/565/files/47610 Reference: Fourth [place] Definition of Myocardial Infarction. Journal of the [place] College [employer] 2018;72:8635-3008 Troponin-T, HS 1 hr delta 06/30/2024 9:22 PM EDT [facility] Comment:Delta troponin value not calculated, sample collected outside of delta calculation time limit. Blood VENOUS BLOOD SPECIMEN / Unknown Venipuncture / Unknown 06/30/2024 8:22 PM EDT 06/30/2024 8:40 PM EDT Triston Godinez MD CHEMISTRY ORDERABLES [facility] [place] [address] * XR Abdomen Flat & Upright (06/30/2024 6:56 PM EDT) WORKSTATION ID [id number] [facility] Anatomical Region Laterality Modality Abdomen N/A Digital Radiogra phy Impressions 06/30/2024 9:12 PM EDT No obstruction or perforation. Thank you for letting us participate in the care of this patient. ??If you are a health care provider and have any questions regarding this report, please contact the number below. ??For patients who have questions please contact the health morning caregiver that requested your imaging first. ? Electronically signed by: Shireen Hurtado MD, [facility] ([phone]), at 06/30/2024 9:12 PM Narrative 06/30/2024 9:12 PM EDT EXAMINATION: XR ABDOMEN FLAT AND UPRIGHT CLINICAL HISTORY: abdominal distension and pain TECHNIQUE: Supine and upright views of the abdomen COMPARISON: CT scan September 29, 2022 FINDINGS: Left lower lobe atelectasis. No subphrenic free air. Right upper quadrant surgical clips. No air-fluid levels. Stomach is collapsed. No abnormally dilated loops of large or small bowel. No rectal vault distention. Procedure Note Shireen Hurtado MD - 06/30/2024 EXAMINATION: XR ABDOMEN FLAT AND UPRIGHT CLINICAL HISTORY: abdominal distension and pain TECHNIQUE: Supine and upright views of the abdomen COMPARISON: CT scan September 29, 2022 FINDINGS: Left lower lobe atelectasis. No subphrenic free air. Right upperquadrant surgical clips. No air-fluid levels. Stomach is collapsed. No abnormallydilated loops of large or small bowel. No rectal vault distention. IMPRESSION No obstruction or perforation. Thank you for letting us participate in the care of this patient. If youare a health care provider and have any questions regarding this report,please contact the number below. For patients who have questions please contactthe health morning caregiver that requested your imaging first. Electronically signed by: Shireen Hurtado MD, [facility]([phone]), at 06/30/2024 9:12 PM Triston Godinez MD IMG DX ORDERABLES * (ABNORMAL) Troponin-T, High Sensitivity (06/30/2024 6:09 PM EDT) [facility] Troponin-T, High Sensitivity Initial 1,209([facility] ) <=22 ng/L 06/30/2024 7:23 PM EDT [facility] Comment: This patient's troponin T concentration was determined using the Avi 5th Generation troponin T assay. The 99th percentile for Troponin T for this test is 14 ng/L for females, and 22 ng/L for males. According to the fourth universal definition of myocardial infarction, the term acute myocardial infarction should be used when there is acute myocardial injury with clinical evidence of acute myocardial ischemia and with detection of a rise and/or fall of cardiac troponin values with at least one value above the 99th percentile and at least one of the following: - Symptoms of myocardial ischemia; - New ischemic ECG changes; - Development of pathological Q waves; - Imaging evidence of new loss of viable myocardium or new regional wall motion ?? abnormality in a pattern consistent with an ischemic etiology; - Identification of a coronary thrombus by angiography or autopsy (not for type 2 or 3 ?? MIs) Serial measurement of troponin and the change in troponin concentration over time (delta) is crucial for the diagnosis of acute myocardial infarction. Guidance on the interpretation of the new 5th Generation Troponin T values and the delta troponin value can be found in the [facility] Test Catalog Troponin - https://[email or web address].org/catalogs/565/files/[email or web address] Reference: Fourth [place] Definition of Myocardial Infarction. Journal of the [place] College [employer] 2018;72:2370-4903 Blood VENOUS BLOOD SPECIMEN / Unknown Venipuncture / Unknown 06/30/2024 6:09 PM EDT 06/30/2024 6:18 PM EDT Triston Godinez MD CHEMISTRY ORDERABLES [facility] [place] [place] [address] * TSH (06/30/2024 6:09 PM EDT) Thyroid Stimulating Hormone 2.80 0.27 - 4.20 mcIU/mL 06/30/2024 6:51 PM EDT [facility] Blood VENOUS BLOOD SPECIMEN / Unknown Venipuncture / Unknown 06/30/2024 6:09 PM EDT 06/30/2024 6:18 PM EDT Triston Godinez MD CHEMISTRY ORDERABLES [facility] [place] [place] [address] * (ABNORMAL) pro-Brain Natriuretic Peptide (06/30/2024 6:09 PM EDT) NT-proBNP 2,259(H) <=449 pg/mL 06/30/2024 6:51 PM EDT [facility] Blood VENOUS BLOOD SPECIMEN / Unknown Venipuncture / Unknown 06/30/2024 6:09 PM EDT 06/30/2024 6:18 PM EDT Triston Godinez MD CHEMISTRY ORDERABLES [facility] [place] [address] * Lipid Panel (Reflex Direct LDL) (06/30/2024 6:09 PM EDT) Cholesterol, Total 197 mg/dL 06/30/2024 6:51 PM EDT [facility] Comment: Desirable: < 200 mg/dL Borderline High: 200 - 239 mg/dL High: > or = 240 mg/dL Triglyceride 230 mg/dL 06/30/2024 6:51 PM EDT [facility] Comment: Normal: <150 mg/dL Borderline High: 150-199 mg/dL High: 200-499 mg/dL Very High: > or =500 mg/dL HDL Cholesterol 36 mg/dL 6:51 PM EDT [facility] Comment:Males: High Risk: <4 0 mg/dL LDL Cholesterol 120 mg/dL 6:51 PM EDT [facility] Comment: Desirable: <100 mg/dL Above Desirable: 100-129 mg/dL Borderline High: 130-159 mg/dL High: 160-189 mg/dL Very High: > or =190 mg/dL Note: LDL calculation updated to the NIH LDL formula as of 06/26/2024 Non-HDL Cholesterol 161 mg/dL 06/30/2024 6:51 PM EDT [facility] Comment: Desirable: <130 mg/dL Above Desirable: 130-159 mg/dL Borderline High: 160-189 mg/dL High: 190-219 mg/dL Very High: > or = 220 mg/dL Blood VENOUS BLOOD SPECIMEN / Unknown Venipuncture / Unknown 06/30/2024 6:09 PM EDT 06/30/2024 6:18 PM EDT Narrative [facility] - 06/30/2024 6:51 PM EDT It is important to review the results of your lipid panel with your health care provider. You can compare your lipid results to the ranges below and whether they are in the desirable range. These ranges are only meant to be used for people without known cardiac disease, history of stroke, or peripheral vascular disease (blockages in the leg arteries or diabetes). If you have one of these conditions, your desirable LDL-C (bad cholesterol) will likely be even lower. ?? ACC/AHA Guidelines (most recently Brianne et al. [facility] 08/26/22): * For individuals with atherosclerotic cardiovascular disease (ASCVD) or LDL >=190 mg/dL, use a high-intensity statin(40-80 mg atorvastatin or 20-40 mg rosuvastatin with goal >=50% LDL reduction) * For individuals with diabetes, age 40-75 without ASCVD, moderate-intensity statin (goal 30-49% LDL reduction); consider high intensity statin for those with increased risk. * For adults without diabetes or ASCVD, aged 40-75 with LDL 70-189 mg/dL, estimate 10 year ASCVD risk with smartphrase ??.ASCVDRISK ??or Dynamed Decisions. If 10 year risk is 7.5%-19.9% (intermediate risk), consider moderate intensity statin based on risk enhancers and patient preference. Consider coronary artery calcium test (CT)if there is concern regarding the benefit of a statin. If ten year risk is >=20%, initiate high-intensity statin. * Evaluate for secondary causes of Triglycerides >500 mg/dL or LDL >190 mg/dL. * Lifestyle modification is a critical component of ASCVD risk reduction. * If not reaching LDL goals on maximally tolerated statin, consider ezetimibe and/or a PCSK9 inhibitor: ?* Target for primary prevention: LDL<100 ?* Target for those with ASCVD or diabetes and 10-year risk >=20%: LDL<70 ?* Target for those with very high risk ASCVD: LDL<55 (Very high risk being the presence of 2 or more of: recent acute coronary syndrome, past ? myocardial infarction, ischemic stroke, symptomatic peripheral artery disease) Triston Godinez MD CHEMISTRY ORDERABLES Performing Organization Address [facility]/ZIP Co de Phone Number [facility] [place] [place] [address] * (ABNORMAL) Hemoglobin A1c (06/30/2024 6:08 PM EDT) Hemoglobin A1c 7.3(H) 4.3 - 5.6 % 06/30/2024 9:03 PM EDT [facility] Comment: Per ADA guidelines, without clear symptoms of hyperglycemia or a random plasma glucose >199 mg/dL, a single abnormal A1c measurement cannot be used to diagnose diabetes mellitus. The diagnosis must be confirmed by either 1) a concurrent abnormal fasting plasma glucose or impaired response to oral glucose tolerance testing, or 2) an additional abnormal A1c, impaired fasting plasma glucose, or impaired response to oral glucose tolerance testing on a different day. A1c results obtained on patients with altered red blood cell turnover may not be in home sales representative of glycemic control. Reference Interval: 4.3 - 5.6% 5.7 - 6.4%: Consistent with prediabetes >=6.5%: Consistent with diagnosis of diabetes mellitus Estimated Average Glucose 06/30/2024 9:03 PM EDT [facility] Comment:Not Calculated. Blood VENOUS BLOOD SPECIMEN / Unknown Venipuncture / Unknown 06/30/2024 6:08 PM EDT 06/30/2024 6:18 PM EDT Narrative [facility] - 06/30/2024 9:03 PM EDT Estimated average glucose (eAG) is calculated from the equation described in: John DM, Inna J, Nic R, et al. ??Translating the A1C assay into estimated average glucose values. ??Diabetes Care 2008:31(8):3915-0134. Additional resources are available on the ADA website (diabetes.org). Triston Godinez MD CHEMISTRY ORDERABLES Performing Organization Address [facility]/ZIP Co de Phone Number [facility] [place] [address] * ECHO COMPLETE W CONTRAST (06/30/2024 5:22 PM EDT) Anatomical Region Laterality Modality Cardiac Other 06/30/2024 4:39 PM EDT Narrative 06/30/2024 9:26 PM EDT ? Version: 1 Name: NAYA RODRIGUEZ ?Study Date: 06/30/2024, 4: 39 PM ?BP: 137 / 78 mmHg ?Patient Location: L3WB^374^A : 1950 (MM/DD/YYYY) ? Height: 193 cm ? Age: 74 Years ? Weight: 113 kg Gender: Male ?BSA: 2.43 m?? Ordering Physician: TRISTON GODINEZ Referring Physician: KENJI THOMAS Performed By: Carol Villarreal Reason For Study: NSTEMI (non-ST elevation myocardial infarction) Exam Location: [facility]. ? Conclusions -Left ventricular systolic function is moderately reduced. The left ventricular ejection fraction is 36% by Dowd's biplane. The anterolateral and inferolateral barahona are akinetic. The anterior wall is hypokinetic. -Right ventricle is mildly dilated. Systolic function is normal. -No significant valve disease. -See report for additional findings. No prior study is available. Procedure Complete-[id number]. Image enhancement Optison was used for left ventricular opacification. Suboptimal quality. There is normal sinus rhythm. Occasional ectopic beats. Left Ventricle Left ventricle is of normal size. Mildly increased thickness of the basal septum with no obstruction to LV outflow. There is no ventricular septal defect. Left ventricular systolic function is moderately reduced. The left ventricular ejection fraction is 36% by Dowd's biplane. There are segmental wall motion abnormalities. There is akinesis of the lateral wall. There is hypokinesis of the anterior wall. Right Ventricle Right ventricle is mildly dilated. Right ventricular systolic function is normal. Left Atrium The left atrium is normal. The interatrial septum is not well visualized. Right Atrium The right atrium is moderately dilated. Aortic Valve The aortic valve is structurally and functionally normal. The aortic valve is tricuspid. There is no aortic stenosis. There is no aortic regurgitation. Mitral Valve The mitral valve is structurally and functionally normal. There is trace mitral regurgitation. Tricuspid Valve The tricuspid valve is structurally and functionally normal. There is trace tricuspid regurgitation. Pulmonic Valve The pulmonic valve appears to be structurally normal. There is trace pulmonic valve regurgitation. Great Arteries The diameter at the level of the sinuses of Valsalva is 3.7 cm. The maximum diameter of the proximal ascending aorta is 3.7 cm. The pulmonary artery is not well visualized. Venous Inferior vena cava is dilated. Inferior vena cava collapse greater than 50% with respiration. Pericardium/Pleural There is no pericardial effusion. A pericardial fat pad is present. Hemodynamics Pulmonary artery hypertension could not be assessed due to inadequate tricuspid regurgitation jet. There is Grade I LV diastolic dysfunction (abnormal relaxation with normal left ventricular filling pressure). Ejection Fraction ? 2D Measurements ? Volume ??s ? IVSd: 1.16 cm EF(MOD-bp): 36.3 % ? LVIDd: 5.7 cm ? LVIDs: 4.4 cm ? LAV(MOD-bp) Indexed: 16.5 ml/m? LVPWd: 1.07 cm ? RA A4Cs_phl: 26.6 cm? LV mass(C)d: 258.4 grams ? EDV(MOD-sp4): 148.7 ml ? Ao root diam: 3.7 cm ? ESV(MOD-sp4): 94.9 ml ? asc Aorta Diam: 3.7 cm ? EDV(MOD-sp2): 137.2 ml ? ESV(MOD-sp2): 84.8 ml ? EDV (MOD-sp4) index: 61.1 ? TAPSE_phl: 2.8 cm ? EDV (MOD-sp4) index: 61.1 ? ESV (MOD-sp4) index: 39.0 ? ESV (MOD-sp2) index: 34.8 Doppler ? 3D/Strain/ TomTec MV E max william: 50.0 cm/sec MV A max william: 96.2 cm/sec MV E/A: 0.52 Lat Peak E' William: 11.2 cm/sec E/ e' (lat): 4.5 Med Peak E' William: 7.0 cm/sec E/e' (med): 7.2 I ?WMSI ??= ??1.69 ? % Normal ??= ?? 50% X - ?1 - ? 2 - ?3 - ?4 - ? 5 - ?Segments ? Size Cannot Interpret ??Normal ? Hypokinetic ?Akinetic ?Dyskinetic ?? Aneurysmal ? 1-2 ? small ? 3-5 ? moderate ? 6-14 ?large ? 15-16 ? diffuse Electronically signed by: Triston Godinez MD ?06/30/2024, 9: 26 PM Procedure Note Triston Godinez MD - 06/30/2024 Version: 1 Name: NAYA RODRIGUEZ Study Date: 06/30/2024,4: 39 PM BP: 137 / 78 mmHg Patient Location:L3WB^374^A : 1950 (MM/DD/YYYY) Height: 193 cm Age: 74 Years Weight: 113 kg Gender: Male BSA: 2.43 m?? Ordering Physician: TRISTON GODINEZ Referring Physician: KENJI THOMAS Performed By: Carol Villarreal Reason For Study: NSTEMI (non-ST elevation myocardial infarction) Exam Location: [facility]. Conclusions -Left ventricular systolic function is moderately reduced. The leftventricular ejection fraction is 36% by Dowd's biplane. The anterolateral andinferolateral barahona are akinetic. The anterior wall is hypokinetic. -Right ventricle is mildly dilated. Systolic function is normal. -No significant valve disease. -See report for additional findings. No prior study is available. Procedure Complete-[id number]. Image enhancement Optison was used for left ventricular opacification. Suboptimal quality. There is normal sinus rhythm.Occasional ectopic beats. Left Ventricle Left ventricle is of normal size. Mildly increased thickness of the basalseptum with no obstruction to LV outflow. There is no ventricular septal defect.Left ventricular systolic function is moderately reduced. The left ventricularejection fraction is 36% by Dowd's biplane. There are segmental wall motion abnormalities. There is akinesis of the lateral wall. There is hypokinesisof the anterior wall. Right Ventricle Right ventricle is mildly dilated. Right ventricular systolic function isnormal. Left Atrium The left atrium is normal. The interatrial septum is not wellvisualized. Right Atrium The right atrium is moderately dilated. Aortic Valve The aortic valve is structurally and functionally normal. The aortic valveis tricuspid. There is no aortic stenosis. There is no aorticregurgitation. Mitral Valve The mitral valve is structurally and functionally normal. There is tracemitral regurgitation. Tricuspid Valve The tricuspid valve is structurally and functionally normal. There istrace tricuspid regurgitation. Pulmonic Valve The pulmonic valve appears to be structurally normal. There is tracepulmonic valve regurgitation. Great Arteries The diameter at the level of the sinuses of Valsalva is 3.7 cm. Themaximum diameter of the proximal ascending aorta is 3.7 cm. The pulmonary arteryis not well visualized. Venous Inferior vena cava is dilated. Inferior vena cava collapse greater than50% with respiration. Pericardium/Pleural There is no pericardial effusion. A pericardial fat pad is present. Hemodynamics Pulmonary artery hypertension could not be assessed due to inadequatetricuspid regurgitation jet. There is Grade I LV diastolic dysfunction (abnormalrelaxation with normal left ventricular filling pressure). Ejection Fraction 2D Measurements Volume s IVSd: 1.16 cm EF(MOD-bp): 36.3 % LVIDd: 5.7 cm LVIDs: 4.4 cm LAV(MOD-bp) Indexed: 16.5 ml/m?? LVPWd: 1.07 cm RA A4Cs_phl: 26.6 cm?? LV mass(C)d: 258.4grams EDV(MOD-sp4): 148.7 ml Ao root diam: 3.7 cm ESV(MOD-sp4): 94.9 ml asc Aorta Diam: 3.7cm EDV(MOD-sp2): 137.2 ml ESV(MOD-sp2): 84.8 ml EDV (MOD-sp4) index: 61.1 TAPSE_phl: 2.8 cm EDV (MOD-sp4) index: 61.1 ESV (MOD-sp4) index: 39.0 ESV (MOD-sp2) index: 34.8 Doppler 3D/Strain/ TomTec MV E max william: 50.0 cm/sec MV A max william: 96.2 cm/sec MV E/A: 0.52 Lat Peak E' William: 11.2 cm/sec E/ e' (lat): 4.5 Med Peak E' William: 7.0 cm/sec E/e' (med): 7.2 I WMSI = 1.69 % Normal = 50% X - 1 - 2 - 3 - 4 - 5 - Segments Size Cannot Interpret Normal Hypokinetic AkineticDyskinetic Aneurysmal 1-2 small 3-5 moderate 6-14 large 15-16 diffuse Electronically signed by: Triston Godinez MD 06/30/2024, 9: 26 PM Triston Godinez MD ECHO ORDERABLES * Film Library- Storage Only DX Chest (06/29/2024 7:22 PM EDT) Narrative [facility] - 06/29/2024 7:22 PM EDT This exam is auto-finalizing. It's purpose is for storage only. Deacon Watters [employer] IMG FILM LIBRARY O RDERABLES [place], [place] * External Cardiology Result (06/29/2024 4:33 PM EDT) Anatomical Region Laterality Modality Other Historical Provider EXTERNAL CARDIOLO GY RESULT * Campylobacter Antigen (06/07/2024 9:00 AM EDT) Campylobacter Ag Immunoassay Negative for Campylobacter Antigen [facility] Stool 06/07/2024 9:00 AM EDT 06/07/2024 1:32 PM EDT Narrative Resulting Agency Comment Spec In Lab Marcelle Weinberg [employer] MICROBIOLOGY - GE NERAL ORDERABLES Performing Organization Address City/[facility]/ZIP Co de Phone Number [facility] [place] [address] * Shiga Toxin Detection (06/07/2024 9:00 AM EDT) Pathologist [facility] Shiga Toxin Assay EIA Negative for Shiga Toxin 1 EIA Negative for Shiga Toxin 2 [facility] Stool 06/07/2024 9:00 AM EDT 06/07/2024 1:32 PM EDT Narrative Resulting Agency Comment Spec In Lab Marcelle Weinberg [employer] MICROBIOLOGY - GE NERAL ORDERABLES Performing Organization Address [facility] Co de Phone Number [facility] [place] [address] * Stool culture (06/07/2024 9:00 AM EDT) Pathologist [facility] Stool Culture No enteric pathogens isolated [facility] Stool 06/07/2024 9:00 AM EDT 06/07/2024 1:32 PM EDT Narrative Resulting Agency Comment Spec In Lab Marcelle Weinberg [employer] MICROBIOLOG[employer] - GE NERAL ORDERABLES Performing Organization Address City/[facility]/ZIP Co de Phone Number [facility] [place] [address] * C. Difficile Screen (06/06/2024 5:30 PM [...] Agency Comment Spec In Lab Marcelle Weinberg [employer] MICROBI[employer] - GE NERAL ORDERABLES Performing Organization Address [facility] Co de Phone Number [facility] [place] [address] * (ABNORMAL) Calprotectin, Stool (06/06/2024 5:30 PM EDT) Calprotectin, Stool 112(H) <=79 mcg/g [facility] Comment: Calprotectin Concentration ? Interpretation ? < 80 mcg/g ?Normal ? 80 ? 160 mcg/g ?Borderline ? >160 mcg/g ?Elevated Stool 06/06/2024 5:30 PM EDT 06/07/2024 1:07 PM EDT Narrative Resulting Agency Comment Spec In Lab Marcelle Weinberg [employer] BODY FLUIDS AND S TOOLS ORDERABLES Performing Organization Address [facility] Co de Phone Number [facility] [place] [address] * (ABNORMAL) CRP, acute inflammation (06/06/2024 9:04 AM EDT) C-Reactive Protein 6.4(H) <=4.9 mg/L [facility] Blood 06/06/2024 9:04 AM EDT 06/06/2024 9:12 AM EDT Narrative Resulting Agency Comment Spec In Lab Marcelle Weinberg [employer] CHEMISTRY ORDERAB LES Performing Organization Address City/[facility]/ZIP Co de Phone Number [facility] [place] [address] * Differential, Automated (06/06/2024 9:04 AM EDT) Neutrophil % 70.3 % [facility] Neutrophil Absolute 4.36 1.70 - 6.10 x10(3)/[facility] Lymph % 19.7 % [facility] Lymphocytes Abs 1.2 0.9 - 3.2 x10(3)/[facility] Monocyte % 7.7 % [facility] Monocyte Abs 0.5 0.3 - 0.9 x10(3)/[facility] Eos % 1.3 % [facility] Eosinophils Abs 0.1 0.0 - 0.4 x10(3)/[facility] Basophil % 0.5 % [facility] Baso Absolute 0.0 0.0 - 0.1 x10(3)/[facility] Immature Gran % 0.50 % [facility] Comment: Immature granulocytes(IG's)percentage and absolute count will include metamyelocytes, myelocytes, and promyelocytes. Blood smears from CBCs yielding IG's will be scanned manually for concordance. If this scan disagrees with the automated IG or if promyelocytes are noted, a manual differential will be performed. Immature Gran Absolute 0.03 0.00 - 0.04 x10(3)/[facility] Blood 06/06/2024 9:04 AM EDT 06/06/2024 9:12 AM EDT Narrative Resulting Agency Comment Spec In Lab Marcelle Conte Sultana [employer] HEMATOLOGY ORDERA BLES Performing Organization Address City/[facility]/ZIP Co de Phone Number [facility] [place] [address] * Sedimentation rate (06/06/2024 9:04 AM EDT) Sedimentation Rate Automated 38 3 - 46 mm/hr [facility] Comment: Effective November 02, 2019 new capillary photometric technology has resulted in a change in reference ranges. It is recommended that each ESR result be reviewed with its own age appropriate reference range. Blood 06/06/2024 9:04 AM EDT 06/06/2024 9:12 AM EDT Narrative Resulting Agency Comment Spec In Lab Marcelle Weinberg [employer] HEMATOLOGY ORDERA BLES [facility] [place] [address] * Comprehensive metabolic panel (non-fasting) (06/06/2024 9:04 AM EDT) Pathologist [facility] Glucose 136 65 - 199 mg/dL [facility] Comment:Diabetes: >=200 mg/d L plus symptoms Blood Urea Nitrogen 16 10 - 20 mg/dL [facility] Creatinine 1.05 0.80 - 1.50 mg/dL [facility] Sodium 144 135 - 145 mmol/L [facility] Potassium 4.2 3.5 - 5.0 mmol/L [facility] Comment: Please note: ??Patients with WBC >100,000 may have falsely elevated Potassium levels. ??For accurate Potassium quantification in these patients send serum separator tube (gold top) for subsequent determinations. ??Contact the Clinical Chemistry Laboratory if there are any questions. Chloride 107 98 - 107 mmol/L [facility] Carbon Dioxide 26 22 - 31 mmol/L [facility] Anion Gap 11 5 - 15 mmol/L [facility] Calcium 9.8 8.5 - 10.5 mg/dL [facility] Protein, Total 7.6 6.1 - 8.0 g/dL [facility] Albumin 4.1 3.2 - 5.2 g/dL [facility] Aspartate Aminotransferase 16 0 - 39 unit/L [facility] Alanine Aminotransferase 18 0 - 55 unit/L [facility] Alkaline Phosphatase 71 40 - 130 unit/L [facility] Bilirubin, Total 0.5 0.2 - 1.3 mg/dL [facility] Est Glomerular Filtration Rate 74 >=60 mL/min/1. 73 m?? [facility] Comment: This patient's estimated GFR [...] Agency Comment Spec In Lab Marcelle Weinberg [employer] CHEMISTRY ORDERAB LES [facility] [place] [address] * COLONOSCOPY (01/20/2024 10:01 AM EST) COLONOSCOPY [facility] Endoscopy Procedure Date: 01/20/2024 10:01 AM ? Patient Name: Naya Rodriguez ? Date of : 1950 ? Age: 73 ? Order #: [id number] ? Instrument Name: [id number] ? Procedure: ? Colonoscopy Indications: ? Follow-up [...] ? physician, the nurse and the ? crime scene evidence technician in the pre-procedure ? area in [...] 01/20/2024 10:0 1 AM EST Deacon Watters [employer] GENERAL SURGICAL O [employer]DER[employer] * FLEXIBLE SIGMOIDOSCOPY (03/16/2012 1:15 PM EDT) FLEXIBLE SIGMOIDOSCOPY [facility] Endoscopy Patient Name: Naya Rodriguez ? Procedure Date: 03/16/2012 1:15 PM ? N: [id number] ? Date of : 1950 ? Age: 61 ? Order #: [id number] ? Procedure: ? Flexible Sigmoidoscopy Indications: ? pt with active UC, assess severity ? prior to entry in MTX study Providers: ? Enrico Tellez MD, April Augustine ? Cristela, RONY, Kingsley Oneal, ? 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 Advance Directives and Livin g Will 07/01/2024 12:28 PM [place] * Attempt Cardiopulmonary Resuscitation - Inpatient (Latest Code Status on File) Date Activated Date Inactivated Comments 06/30/2024 3:58 PM 07/04/2024 5:26 PM Question Answer Comments Code Status decision made by: Patient Content of discussion: Patient would like to be full code * Full Code Date Activated Date Inactivated Comments 03/22/2016 11:43 AM 03/23/2016 4:30 AM Question Answer Comments Does patient have capacity to make decision: Yes Care Teams Potato Peeling Machine Operator Relationship Specialty Start Date End Date Deacon Watters, JAZMINE [address] [place] [address] PCP - General Family Medicine 02/17/22
--- OUTSIDE RECORDS SUMMARY | 2024-07-11 11:11 | XMS_ITS | Encounter Summary ---
Author Organization [facility] Address [address] [place] [address] Care Team Providers Care Skirt Maker Name Role Phone Unavailable Primary Care Provider Unavailabl e Encounter Details Date Type Department Care Team (Late st Contact Info) Description 12/05/2009 Orders Only [facility] Laboratory Services - [facility] ([facility] [address] [place], [place] [address] [place] [address] [place] [id number] Social History Tobacco Use Types Packs/Day [...] ? RODRIGUEZ, BRIAN ? Accession #: ? [id number] ? : ? 1950 (Age: 59) ??M [...] ?? lesions suggestive of a neoplastic focus. ??Pressure Controller sections are submitted in (A1) and (A2). (Davina Ordoñez)/mpl ? End of Report ? JOSEPHINE ESCOTO 12/05/2009 12/06/2009 8:4 7 EST Jennifer Saenz MD PATHOLOGY ORDERABLES [facility] [address] [place] [address] documented in this encounter Visit Diagnoses Not on filedocumented in this encounter
--- OUTSIDE RECORDS SUMMARY | 2024-07-11 11:11 | XMS_ITS | Encounter Summary ---
Author Organization [facility] Address [address] [place] [address] Care Team Providers Care District Ranger Name Role Phone Maximilian Fall MD Primary Care Provider [phone] Encounter Details Date Type Department Care Team (Late st Contact Info) Description 04/10/2020 Lab Requisition [facility] [place] [facility]ology [facility] Laboratory Medicine - [address] [id number] Outr Resulting Lab, Provider Social History Tobacco [...] 0.0 - 6.5 ng/mL 04/11/2020 10:46 EDT [facility] Blood VENOUS BLOOD / Unknown 04/10/2020 9:15 EDT 04/10/2020 15:53 EDT Narrative [facility] - 04/11/2020 10:46 EDT NOTE: Serum PSA concentration should not be interpreted as absolute evidence for the presence or absence of malignant disease. Assayed on Siemens ADVIA Coverooaur XPT using chemiluminescent technology.??Values obtained by using different assay methods cannot be used interchangeably. Provider Outr Resulting Lab CHEMISTRY & BLOOD GAS ORDERABLES [facility] [address] [place] [id number] documented in this encounter Visit Diagnoses Not on filedocumented in this encounter Care Teams District Ranger Relationship Specialty Start Date End Date Maximilian Fall MD PCP - General 03/18/16 documented as of this encounter
--- OUTSIDE RECORDS SUMMARY | 2024-07-11 11:12 | XMS_ITS | Encounter Summary ---
Author Organization Formerly [facility] [place] [address] Care Team Providers Care Returns Processor Name Role Phone Deacon Watters APRN Primary Care Provider [phone]- [phone] Reason for Visit * Auth/Cert (Routine) Specialty Diagnoses / Procedures Referred By Contac t Referred To Contact Diagnoses NSTEMI (non-ST elevated myocardial infarction) NSTEMI Triston Godinez MD [facility] [place] [address] [facility] Referral ID Status Reason Start Date Expiration Date Visits Re quested Visits Authorized [id number] 1 1 Encounter Details Date Type Department Care Team (Late st Contact Info) Description 07/01/2024 2:30 PM EDT - 07/01/2024 3:30 PM [place] [address] Lizzette Hayden MD [facility] [place] [address] CARDIAC CATHETERIZATION Social History Tobacco Use Types Packs/Day Years Used Date Smoking Tobacco: Former Cigarettes 4 30 1 12/01/1961 - 10/01/1992 Smokeless Tobacco: Former Chew Comments:Denies vaping Alcohol Use Standard Drinks/Week Comments Yes 0 (1 standard drink = 0.6 oz pur e alcohol) twice a year [facility] Utilities Answer Date Recorded In the past 12 months has th e electric, gas, oil, or water [employer] threatened to shut off services in your [...] any time in the past 12 m [facility], were you homeless or living in a intermediate (including now)? No 07/01/2024 DH IPV Inpatient [...] Sign Reading Time Taken Comments Blood Pressure 134/69 07/01/2024 2:57 PM EDT Pulse 96 07/01/2024 2:57 PM EDT BBB Temperature 37.2 ??C (99 ??F) 07/01/2024 11: 35 AM EDT Respiratory Rate 18 07/01/2024 2:57 PM EDT Oxygen Saturation 94% 07/01/2024 2:57 PM EDT Inhaled Oxygen Concentration - - Weight 109.5 kg (241 lb 4.8 oz) 07/01/2024 3:07 AM EDT Height 193 cm (6' 4) 06/30/2024 3:47 PM EDT Body Mass Index 29.89 06/30/2024 3:47 PM EDT documented in this encounter Discharge Summaries * Armond Denny MD - 07/04/2024 9:59 AM EDT Cardiology - Discharge Summary Patient Name: Brian Rodriguez Patient Age: 74 y.o. Birthdate: 1950 Admit date: 06/30/2024 Discharge date and time: 07/04/2024 Attending Physician: Armond Denny MD ID: Brian Rodriguez is a 74 y.o. male with history of HTN, HLD, migraines, DM2, and UC [facility] and was [place] [facility] [place] found to have HFrEF. Course complicated by UTI/pyelonephritis. Follow-up Recommendations for Providers: Primary Care: - Please review Mr. Castellanos's progress post hospitalization for NSTEMI s/p stent and new HFrEF and manage any cardiac risk factors or medication side effects. - He was started on DAPT with ASA and Plavix. ASA should be continued indefinitely and Plavix for at least a year - He was also started on GDMT including metoprolol 100 mg succinate and spironolactone 12.5 daily. Continue Losartan 100 mg. Deferred SGLT2 due to Jardiance allergy. - Please monitor for any symptoms of pyelonephritis. He was discharged with 6 days of [id number] mg BID after receiving 1 day of IV CTX. Recommend f/u BMP for Cr improvement and a UA for test of cure. - Please consider a new acute migraine medication for Brian. He previously used Sumatriptan which we discontinued given his heart disease. We also discontinued his propranolol to start metoprolol, sohe may need a different migraine prophylactic as well. - Recommend re-checking A1c in 3 months. Elevated to 7.3 inpatient. Cardiology: - Please review Mr. Castellanos's progress post hospitalization for NSTEMI s/p stent and new HFrEF and manage any cardiac risk factors or medication side effects. - He was started on DAPT with ASA and Plavix. ASA should be continued indefinitely and Plavix for at least a year. - He was also started on GDMT including metoprolol succinate 100 mg and spironolactone 12.5 daily. Continue Losartan 100 mg. Deferred SGLT2 due to Jardiance allergy. PCP Contact Information: Deacon Watters, [employer] [address] [facility] / [facility] [id number] Discharge Diagnoses (Hospital Problems) and Secondary Diagnoses (Chronic Problems): Active Hospital Problems Diagnosis NSTEMI (non-ST elevated myocardial infarction) Resolved Hospital Problems No resolved problems to display. Procedures/Cardiac Studies: cardiac catheterization, echocardiogram (see full report below) History of Presentation: Brian presented to the ED for recent chest pain that started 2 weeks ago. 2 weeks ago, while splitting wood for a fence for his hen, he had an episode of 'shocking' central chest pain with simultaneous jaw pain. It lasted for the whole day until he took his nightly 500 mg of Tylenol and went to sleep. There was no associated SOB, syncope, palpitations, diaphoresis, n/v. He has no orthopnea, swelling or pnd. He was chest pain free until he had another episode yesterday while chasing his hen withthe exact same symptoms, prompting his presentation. At OSH, he was loaded with ASA and plavix, started on a heparin gtt and started on atorvastatin 80 mg. EKGs there showed NSR with RBBB. BNP was 20,000 and trops 4143 and got to 20,000. At evaluation today, he was hemodynamically stable and chest pain free. His main complaint currently is intractable migraine. He typically takes sumatriptan for this at home. He also takes Tylenol 500 mg nightly. He is a former smoker of 6 years, 4 packs a day. He does not drink alcohol. His last UC flare was 2 weeks ago with non-bloody diarrhea. Hospital Course: Brian Rodriguez was admitted to the Cardiology Service on 06/30/2024. The following acute and chronic medical issues were identified during this phase of their hospitalization, and managed as summarizedbelow by problem: #NSTEMI s/p PCI LCx #HTN #HLD Mr. Rodriguez was transferred [place] [facility] [place] with trops of 4143 and 20,000 at the OSH, where he was loaded with ASA, plavix and started on heparin gtt. [place] [facility], his trops trended down to 1234. In the catheterization, he had a single stent placed in the mid LCx without complication. The heparin gttwas stopped and he was continued on DAPT with ASA 81 and Plavix 75 mg daily. ASA 81 should be continued indefinitely and Plavix for at least a year. He was also started on atorvastatin 80 mg. #New, compensated HFrEF likely 2/2 NSTEMI TTE showed reduced EF of 36% with hypokinesis of the anterior wall and akinesis in the anterolateral and inferolateral barahona. For GDMT, he was continued on his home losartan of 100 mg, started on metoprolol tartrate 12.5q6, and started on spironolactone 12.5 daily. SGLT2 inhibitors were not added due to a reported allergy to Jardiance in the past, and in light of his active UTI. His metoprolol was consolidated to 100 mg succinate daily at discharge. #Pyelonephritis Brian had right flank pain and suprapubic abdominal pain on 07/03 with associated elevated Cr to 1.25. UA was sent and was positive for bacteria, leukocytes, and nitrites. He was started on IV CTX. After 1 day, he improved greatly and Cr remained stable. He was transitioned to po ciprofloxacin 500 mg BID and discharged with 6 days. Recommend following up BMP for Cr and consider repeat UA for test of cure. #Ulcerative Colitis At presentation, Brian did have a distended abdomen diffusely tender to palpation. At that time, KUB showed NAD. He also had an episode of emesis and cramping, which improved with Zophran and a BM. CT abdo at that time also showed no acute process, there was no drop in Hb, and no signs of infection. He was continued on his home sulfasalazine 1500 mg TID and given dicyclomine PRN for cramping. #Migraines He did present with a headache, which was treated with PRN tylenol. His propranolol was stopped andhe was started on metoprolol for GDMT. His sumatriptan was discontinued, as well, and he should nottake any triptans in the future given his heart disease. Will need a new acute and prophylactic migraine regimen in the outpatient. #DM2 His home metformin and glipizide were held inpatient and he was kept on SSI. His A1c was elevated to 7.3. He stated that at home his BGL resides around 130. He was discharged on his home orals at their regular dose. Would consider changes to his regimen correction to reduce the A1c. #GERD He takes Omeprazole usually for GERD. We switched him to pantoprazole 40 mg given omeprazole has a contraindication with plavix. BP 138/76 Pulse 74 Temp 36.3 ??C (97.4 ??F) (Oral) Resp 18 Ht 193 cm (6' 4) Wt 111.4 kg (245 lb 9.5 oz) SpO2 96% BMI 29.89 kg/m?? Exam: No distress; JVP normal; lungs clear; RRR; no edema. Important Studies and Lab Data: Discharge Labs: Recent Labs 07/04/2414207/03/242 07/02/24 0712 07/01/24 1032 07/01/24 0315 WBC 5.05 5.90 5.99 7.02 5.82 HGB 10.5* 11.0* 11.3* 12.2* 11.9* PLATELET 145 156 155 167 169 Recent Labs 07/04/2414207/03/24 0402 07/02/24 0712 06/30/24 2325 06/30/24 1809 NA 141 138 136 141 140 K 3.9 3.6 3.6 3.4* 4.2 CL 108* 105 104 106 105 CO2 22 22 24 25 21* BUN 12 15 13 10 10 CREATININE 1.27 1.25 1.18 1.02 0.98 GLUCOSE 156 146 161 145 -- Recent Labs 07/04/24 0143 07/03/24 0402 07/02/24 0712 CALCIUM 9.4 9.2 8.8 MAGNESIUM 0.80 0.86 0.89 No results for input(s): CK, TROPONINT in the last 168 hours. No results for input(s): AST, ALT, ALKPHOS, BILITOT, BILIDIR in the last 168 hours. No results for input(s): INR in the last 168 hours. Lab Results Component Value Date CHLPL 197 06/30/2024 HDL 36 06/30/2024 TRIG 230 06/30/2024 LDLCHOL 120 06/30/2024 Recent Labs 06/30/24 1808 HA1C 7.3* Studies: EKG: Sinus rhythm Occasional Premature ventricular complexes and Premature atrial complexes. Right bundle branch block TTE: -Left ventricular systolic function is moderately reduced. The left ventricular ejection fraction is 36% by Dowd's biplane. The anterolateral and inferolateral barahona are akinetic. The anterior wall is hypokinetic. -Right ventricle is mildly dilated. Systolic function is normal. -No significant valve disease. XR Abdo: NAD CT Abdo: 1. No acute infectious/inflammatory process. 2. Diverticulosis with no evidence of acute diverticulitis. 3. Similar appearance of nonspecific bilateral perinephric fat stranding. This can be a normal incidental finding in a patient of this age. Suggest correlation with urinalysis to exclude urinary tract infection. Cardiac Catheterization: ([facility]) RIGHT dominance LVEDP 10 Artery Lesion Intervention LM Mild LAD Mild LCx 90% prox to mid LCX prior to OM1/OM2 branch 1x EILEEN RCA Mild Pending Studies and Lab Data: Urine culture pending Discharge Conditions/Prognosis: Upon discharge the pt is hemodynamically stable, fully ambulatory without requiring supplemental oxygen, afebrile and pain free controlled with stable oral regimen. Discharge to: home without services, referral for cardiac rehab Discharge Medications: Your Medications New Medications Dose Details aspirin 81 mg chewable tablet Take 81 mg by mouth daily. 81 mg Quantity: 30 tablet Refills: 3 ciprofloxacin 500 mg tablet Commonly known as: Cipro Take 1 tablet by mouth 2 times daily for 6 days. 500 mg Quantity: 12 tablet Refills: 0 clopidogreL 75 mg tablet Commonly known as: Plavix Take 1 tablet by mouth daily. 75 mg Quantity: 90 tablet Refills: 3 insulin glargine-yfgn 100 unit/mL Solution Commonly known as: Semglee Inject 70 Units subcutaneously nightly. 70 Units Refills: 0 metoprolol succinate XL 100 mg ER 24 hr tablet Commonly known as: Toprol-XL Take 1 tablet by mouth daily. 100 mg Quantity: 30 tablet Refills: 12 nitroGLYcerin 0.4 mg sublingual tablet Commonly known as: Nitrostat Place 1 tablet under the tongue every 5 minutes as needed for Chest pain. 0.4 mg Quantity: 90 tablet Refills: 12 pantopraz[address] EC [address] tablet Commonly known as: Protonix Take 1 tablet by mouth daily. Replaces: omeprazole [address] capsule 40 mg Quantity: 90 tablet Refills: 3 spironolactone 25 mg tablet Commonly known as: Aldactone Take 0.5 tablets by mouth daily. 12.5 mg Quantity: 45 tablet Refills: 0 Continued medications with new dosing Dose Details atorvastatin 80 mg tablet Commonly known as: Lipitor Take 1 tablet by mouth daily. Start taking on: July 05, 2024 What changed: medication strength how much to take 80 mg Quantity: 90 tablet Refills: 3 Continued medications, unchanged Dose Details albuteroL 90 mcg/actuation inhaler (HFA) Inhale 2 puffs into the lungs every 4 hours as needed for Wheezing. Use with spacer 2 puff Refills: 0 dicyclomine 20 mg tablet Commonly known as: Bentyl TAKE ONE TABLET BY MOUTH EVERY 8 HOURS NEEDED 20 mg Quantity: 90 tablet Refills: 5 folic acid 1 mg tablet Commonly known as: Vitamin B9 Take 1 tablet by mouth daily. 1,000 mcg Quantity: 90 tablet Refills: 3 gabapentin 300 mg capsule Commonly known as: Neurontin Take 300 mg by mouth daily as needed. 300 mg Refills: 0 glipiZIDE XL 10 mg ER 24 hr tablet Commonly known as: Glucotrol XL Take 10 mg by mouth daily. 10 mg Refills: 0 Insulin Basaglar KwikPen U-100 100 unit/mL (3 mL) pen Inject 70 Units subcutaneously. Generic drug: insulin glargine 70 Units Refills: 0 ketoconazole 2 % Cream Commonly known as: Nizoral Apply twice daily to affected areas on the groin Quantity: 30 g Refills: 1 losartan 50 mg tablet Commonly known as: Cozaar Take 100 mg by mouth daily. 100 mg Refills: 0 metFORMIN 1,000 mg tablet Commonly known as: Glucophage Take 500 mg by mouth daily. 500 mg Refills: 0 sulfaSALAzine 500 mg tablet Commonly known as: Azulfidine Take 3 tablets by mouth 2 times daily. 1,500 mg Quantity: 540 tablet Refills: 3 tamsulosin 0.4 mg capsule Commonly known as: Flomax Take 0.8 mg by mouth daily. 0.8 mg Refills: 0 STOPPED Medications budesonide 2 mg/actuation Foam Commonly known as: Uceris lisinopriL 10 mg tablet Commonly known as: Zestril metroNIDAZOLE 500 mg tablet Commonly known as: FlagyL mupirocin 2 % Ointment Commonly known as: Bactroban nystatin 100,000 unit/mL Suspension Commonly known as: Mycostatin omeprazole [address] capsule Commonly known as: PriLOSEC Replaced by: pantoprazole EC [address] tablet propranolol LA 80 mg ER 24 hr capsule Commonly known as: Inderal LA sulfamethoxazole-trimethoprim DS 800-160 mg tablet Commonly known as: Bactrim DS SUMAtriptan 50 mg tablet Commonly known as: Imitrex Updated Allergies/ADRs: Allergies Allergen Reactions Erythromycin Base CIS - Unknown Jardiance [Empagliflozin] Rash Broke out in a full body rash Tetracyclines Future Appointments and Orders Future Appointments and Orders Future Appointments Provider Department Dept Phone 08/15/2024 9:00 AM Dion Osullivan MD [place] [facility] Arrive at: [employer] Area [phone] 09/01/2024 11:20 AM Gómez Mercer MD Dermatology at [facility] Arrive at: [employer] [address] [place] [address] 09/21/2024 2:45 PM Trung Hoyos MD Pain [facility] Spine Center at [facility] Arrive at: [employer] Area [phone] Future Orders Complete By Expires Referral to Cardiac Rehab [[id number] Custom] As directed Process Instructions: If no progress note charted, please enter Clinical details in comments. Scheduling Instructions: Questions: My question or request is: NSTEMI, PCI, HFrEF- cardiac rehab at [facility] Referral to Cardiology [REF12 Custom] As directed Process Instructions: If no progress note charted, please enter Clinical details in comments. Scheduling Instructions: Questions: My question or request is: NEW PATIENT - hospital follow up for NSTEMI s/p PCI to LCx and new HFrEF, does not have appt on eROIcarge please call him with appt slot General Instructions None Patient Instructions Patient Instructions on Discharge to Home Why you were hospitalized: You had a heart attack, which was caused by a blockage in one of your heart arteries. This was fixed with a stent that was placed during a cardiac catheretization. If you have any new bleeding from the catheterization site, please call your doctor. You were also found to have heart failure while in the hospital. Heart failure occurs when the muscles of your heart are weak or have trouble relaxing, or both. Your heart is a pump that moves fluids through your body. As with any pump, if the flow out of the pump is not enough, fluids do not move well and they get stuck in places they should not be. In yourbody, this means that fluid collects in your lungs, abdomen, and legs. While you were in the hospital: Your health care team closely adjusted the fluids you drank or received through an intravenous (IV)line. They also watched and measured how much urine you produced. Weigh yourself every morning on the same scale when you get up -- before you eat but after you use the bathroom. Make sure you are wearing similar clothing each time you weigh yourself. Write down your weight every day on a chart so that you can keep track of it. You will need to eat less salt. Salt can make you thirsty, and being thirsty can cause you to drinktoo much fluid. Extra salt also makes fluid stay in your body. Lots of foods that DO NOT taste salty, or that you DO NOT add salt to, still contain a lot of salt. While you were in the hospital, you got a Urinary Tract Infection that impacted your kidneys. We have discharged you with antibiotics: Ciprofloxacin 500 mg twice daily for 6 days. Please complete theentire course of antibiotics. New Medications: Aspirin: this is a platelet inhibitor that will help prevent clot build up in your arteries, as well as in the stent that was placed. Continue taking 81mg daily indefinitely. Ciprofloxacin: This is an antibiotic for your urinary tract infection. Please complete the entire course. If you do not finish the course, there is an increased risk of antibiotic resistance. Clopidogrel (plavix): this is a second platelet inhibitor that will help prevent clot build up inthe stent that was placed. It is very important that you take this medication every day at least for one year to help keep your stent open. Follow up with your doctor before stopping this medication. Atorvastatin (lipitor): this is a cholesterol-lowering medication that helps prevent build up of plaque in your arteries. Take this every evening. Metoprolol (toprol): this is a beta leo, that helps protect your heart. Take this every day. Spironolactone: this is a potassium-sparing diuretic that helps strengthen your heart and is a mild diuretic. Take this daily. Nitroglycerin: this is a medication that can be placed under your tongue as needed for chest pain. If you experience chest pain, especially that similar to what you had before you were admitted to the hospital, sit down and place one tab under your tongue (it may make you dizzy, so sitting down before taking this is safest). If your chest pain does not improve, call your doctor. Pantoprazole: This protects your stomach lining. It is similar to omeprazole but safe to take with Plavix. Medications to STOP: Sumatriptan - this migraine medication is not good for people with heart disease. Discuss a new option for your migraines with your doctor. Propranolol - we changed you to a different medication in the same class of medications which will also help your heart (Metoprolol). Omeprazole - we switched your GERD medication to pantoprazole because omeprazole cannot be taken atthe same time as clopidogrel (plavix) When to call your doctor: - Chest pain, worsening shortness of breath, fatigue with usual exertion, or new rest/night time symptoms. - Weigh yourself daily and record; if you note an increase of more than 2-3 pounds in 2 days, or 5 pounds over a week, contact your health care provider. - If you become short of breath, cannot lie down to sleep, or have swelling in your legs/ankles or abdomen, contact your health care provider. - Call if you have reduced urination during the day or increased urination at night. - Call for signs of increased wound drainage, redness, swelling, or increased pain at the site of your cardiac cath. - Call if you develop a temp >100.5 If you have non-emergent questions between now and the time of your follow up appointments: During 8am-5pm Thursday through Thursday call [phone] to speak with a nurse in the cardiology clinic All other times call [phone] and ask to speak to the tow operator international exchange coordinator. Home oxygen therapy: none Arrangements for VNA/home care: none Follow up Appointments: Future Appointments Date Time Provider Department Center 08/15/2024 9:00 AM Dion Osullivan MD [facility] [place] [facility] 09/01/2024 11:20 AM Gómez Mercer MD [facility] 09/21/2024 2:45 PM Trung Hoyos MD [facility] [place] Sp [facility] Licensed Practical Nurse Instructor: [facility] - referral sent and they are aware you need an appointment. If they do not reach out to you with an appointment in 1 week, call and ask for the cardiology clinic. PCP: Deacon Watters APRN at [phone] on July 08 at 4 PM Your Inpatient Doctor(s) at [facility]: Armond Denny MD - Attending physician Your Primary Care Provider: Deacon Watters APRN [address] / [facility] [id number] If you have non-emergent questions between now and the time of your follow up appointments: During 8am-5pm Thursday through Thursday call [phone] to speak with a nurse in the cardiology clinic All other times call [phone] and ask to speak to the tow operator international exchange coordinator. Provider Contact Information: Deacon Watters APRN [address] [facility] / [facility] [id number] Discharge References/Attachments: Discharge References/Attachments None For questions regarding this document or issues relating to this hospitalization on the Medical Service, please contact your inpatient physician through the [facility] Landscaper . Issues afterhours and on weekends will be handled by the Licensed Practical Nurse Instructor staff on-call. Signed: Ronel Hensley MD Internal Medicine, PGY1 Cardiology Team S2 07/04/2024 documented in this encounter Discharge Instructions * Patient Instructions* Ronel Hensley MD - 07/02/2024 9:55 AM EDT Patient Instructions on Discharge to Home Why you were hospitalized: You had a heart attack, which was caused by a blockage in one of your heart arteries. This was fixed with a stent that was placed during a cardiac catheretization. If you have any new bleeding from the catheterization site, please call your doctor. You were also found to have heart failure while in the hospital. Heart failure occurs when the muscles of your heart are weak or have trouble relaxing, or both. Your heart is a pump that moves fluids through your body. As with any pump, if the flow out of the pump is not enough, fluids do not move well and they get stuck in places they should not be. In yourbody, this means that fluid collects in your lungs, abdomen, and legs. While you were in the hospital: Your health care team closely adjusted the fluids you drank or received through an intravenous (IV)line. They also watched and measured how much urine you produced. Weigh yourself every morning on the same scale when you get up -- before you eat but after you use the bathroom. Make sure you are wearing similar clothing each time you weigh yourself. Write down your weight every day on a chart so that you can keep track of it. You will need to eat less salt. Salt can make you thirsty, and being thirsty can cause you to drinktoo much fluid. Extra salt also makes fluid stay in your body. Lots of foods that DO NOT taste salty, or that you DO NOT add salt to, still contain a lot of salt. While you were in the hospital, you got a Urinary Tract Infection that impacted your kidneys. We have discharged you with antibiotics: Ciprofloxacin 500 mg twice daily for 6 days. Please complete theentire course of antibiotics. New Medications: Aspirin: this is a platelet inhibitor that will help prevent clot build up in your arteries, as well as in the stent that was placed. Continue taking 81mg daily indefinitely. Ciprofloxacin: This is an antibiotic for your urinary tract infection. Please complete the entire course. If you do not finish the course, there is an increased risk of antibiotic resistance. Clopidogrel (plavix): this is a second platelet inhibitor that will help prevent clot build up inthe stent that was placed. It is very important that you take this medication every day at least for one year to help keep your stent open. Follow up with your doctor before stopping this medication. Atorvastatin (lipitor): this is a cholesterol-lowering medication that helps prevent build up of plaque in your arteries. Take this every evening. Metoprolol (toprol): this is a beta leo, that helps protect your heart. Take this every day. Spironolactone: this is a potassium-sparing diuretic that helps strengthen your heart and is a mild diuretic. Take this daily. Nitroglycerin: this is a medication that can be placed under your tongue as needed for chest pain. If you experience chest pain, especially that similar to what you had before you were admitted to the hospital, sit down and place one tab under your tongue (it may make you dizzy, so sitting down before taking this is safest). If your chest pain does not improve, call your doctor. Pantoprazole: This protects your stomach lining. It is similar to omeprazole but safe to take with Plavix. Medications to STOP: Sumatriptan - this migraine medication is not good for people with heart disease. Discuss a new option for your migraines with your doctor. Propranolol - we changed you to a different medication in the same class of medications which will also help your heart (Metoprolol). Omeprazole - we switched your GERD medication to pantoprazole because omeprazole cannot be taken atthe same time as clopidogrel (plavix) When to call your doctor: - Chest pain, worsening shortness of breath, fatigue with usual exertion, or new rest/night time symptoms. - Weigh yourself daily and record; if you note an increase of more than 2-3 pounds in 2 days, or 5 pounds over a week, contact your health care provider. - If you become short of breath, cannot lie down to sleep, or have swelling in your legs/ankles or abdomen, contact your health care provider. - Call if you have reduced urination during the day or increased urination at night. - Call for signs of increased wound drainage, redness, swelling, or increased pain at the site of your cardiac cath. - Call if you develop a temp >100.5 If you have non-emergent questions between now and the time of your follow up appointments: During 8am-5pm Thursday through Thursday call [phone] to speak with a nurse in the cardiology clinic All other times call [phone] and ask to speak to the tow operator international exchange coordinator. Home oxygen therapy: none Arrangements for VNA/home care: none Follow up Appointments: Future Appointments Date Time Provider Department Center 08/15/2024 9:00 AM Dion Osullivan [place] [facility] [place] [facility] [place]/01/2024 11:20 AM Gómez Mercer MD [facility] 09/21/2024 2:45 PM Trung Hoyos MD [facility] [place] [facility] [place] Licensed Practical Nurse Instructor: [facility] - referral sent and they are aware you need an appointment. If they do not reach out to you with an appointment in 1 week, call and ask for the cardiology clinic. PCP: Deacon Watters APRN at [phone] on July 08 at 4 PM Your Inpatient Doctor(s) at [facility] [place]: Armond Denny MD - Attending physician Your Primary Care Provider: Deacon Watters APRN [address] [place] [id number] If you have non-emergent questions between now and the time of your follow up appointments: During 8am-5pm Thursday through Thursday call [phone] to speak with a nurse in the cardiology clinic All other times call [phone] and ask to speak to the tow operator international exchange coordinator. documented in this encounter Medications at Time of Discharge Medication Sig Dispensed Refills Start Date End Date dicyclomine (Bentyl) 20 mg tablet TAKE ONE TABLET BY MOUTH EVERY 8 HOURS NEEDED 270 tablet 3 07/04/2024 aspirin 81 mg chewable tablet Take 81 mg by mouth daily. 30 tablet 3 07/04/2024 clopidogreL (Plavix) 75 mg tablet Take 1 tablet by mouth daily. 90 tablet 3 07/04/2024 insulin glargine-yfgn (Semglee) 100 unit/mL Solution Inject 70 Units subcutaneously nightly. 07/04/2024 metoprolol succinate XL (Toprol-XL) 100 mg ER 24 hr tablet Take 1 tablet by mouth daily. 30 tablet 12 07/04/2024 nitroGLYcerin (Nitrostat) 0.[address] 1 tablet under the tongue every 5 minutes as needed for Chest pain. 90 tablet 12 07/04/2024 spironolactone (Aldactone) 25 mg tablet Take 0.5 tablets by mouth daily. 45 tablet 07/04/2024 pantoprazole EC (Protonix) [address] tablet Take 1 tablet by mouth daily. 90 tablet 3 07/04/2024 atorvastatin (Lipitor) 80 mg tablet Take 1 tablet by mouth daily. 90 tablet 3 07/05/2024 ketoconazole (Nizoral) 2 % CreamIndications:Ti lillian cruris Apply twice daily to affected areas on the groin 30 g 1 06/07/2024 sulfaSALAzine (Azulfidine) 500 mg tablet Take 3 tablets by mouth 2 times daily. 540 tablet 3 09/21/2023 gabapentin (Neurontin) 300 mg Capsule Take 300 mg by mouth daily as needed. 04/21/2021 losartan (Cozaar) 50 mg Tablet Take 100 mg by mouth daily. 03/10/2020 albuterol 90 mcg/actuation HFA Aerosol Inhaler Inhale 2 puffs into the lungs every 4 hours as needed for Wheezing. Use with spacer DOT SCOTT U-100 INSULIN 100 unit/mL (3 mL) pen Inject 70 Units subcutaneously. 0 04/05/2018 metFORMIN (GLUCOPHAGE) 1,000 mg Tablet Take 500 mg by mouth daily. 0 04/07/2017 tamsulosin (FLOMAX) 0.4 mg Capsule, Sust. Release 24 hr Take 0.8 mg by mouth daily. glipiZIDE (GLUCOTROL) 10 mg 24 hr tablet Take 10 mg by mouth daily. folic acid (FOLVITE) 1 mg tabletIndications:U lcerative colitis Take 1 tablet by mouth daily. 90 tablet 3 11/22/2012 ciprofloxacin (Cipro) 500 mg tablet Take 1 tablet by mouth 2 times daily for 6 days. 12 tablet 07/04/2024 07/10/2024 documented as of this encounter Progress Notes * Qing Braxton, PT - 07/04/2024 10:15 AM EDT Physical Therapy evaluation Patient profile: Brian Rodriguez is a 74 y.o. male with PMHx of HTN, HLD, migraines, DM2, and UC whow[place] [facility] [place] and now found to have HFrEF. Pt now s/p PCI to LCX. Patient with the following active problems: Past Medical History: Diagnosis Date Asthma 10/01/2011 Diabetes mellitus 10/01/2011 GERD (gastroesophageal reflux disease) 10/01/2011 Hearing loss 10/01/2011 Hydrocele 10/01/2011 Ulcerative colitis 10/01/2011 Past Surgical History: Procedure Laterality Date PRO COLONOSCOPY, BIOPSY N/A 02/12/2017 COLONOSCOPY FLEXIBLE, WITH BX (WRVU 3.66) performed by Dion Osullivan MD at [facility] PRO COLONOSCOPY, BIOPSY N/A 02/22/2019 COLONOSCOPY FLEXIBLE, WITH BX (WRVU 3.66) performed by Dion Osullivan MD at [facility] PRO COLONOSCOPY, BIOPSY N/A 03/28/2022 COLONOSCOPY FLEXIBLE, WITH BX (WRVU 3.66) performed by Mona Turner MD at [facility] PRO COLONOSCOPY, BIOPSY N/A 01/20/2024 COLONOSCOPY FLEXIBLE, WITH BX (WRVU 3.56) performed by Anthony Hamlin MD at [facility] PRO COLONOSCOPY, DIAGNOSTIC 11/27/2011 COLONOSCOPY, DIAGNOSTIC performed by Dion OSULLIVAN at [facility] PRO COLONOSCOPY, DIAGNOSTIC 07/13/2014 COLONOSCOPY, DIAGNOSTIC performed by Dion Osullivan MD at [facility] PRO COLONOSCOPY, REMV LESN, SNARE N/A 02/22/2019 COLONOSCOPY, POLYPECTOMY, REMOVAL LESION BY SNARE (WRVU 4.67) performed by Dion Osullivan MD at [facility] PRO COLONOSCOPY, REMV LESN, SNARE N/A 02/26/2021 COLONOSCOPY, POLYPECTOMY, REMOVAL LESION BY SNARE (WRVU 4.67) performed by Dion Osullivan MD at [facility] PRO SIGMOIDOSCOPY, DIAGNOSTIC 03/16/2012 FLEXIBLE SIGMOIDOSCOPY performed by YUDI MALLOY at [facility] PRO UPPER GI ENDOSCOPY, DIAGNOSTIC N/A 04/28/2019 EGD, UPPER GI ENDOSCOPY performed by Iza Coates MD at [facility] UPPER GI ENDOSCOPY, EXAM 10/01/2012 UPPER GI ENDOSCOPY performed by Dion OSULLIVAN at [facility] Social History: Home set-up: Lives on the first floor of a two level home in [place], [place] Stairs: FOS with bilateral rails vs a few stairs through the back to the first level, 8 step between rooms Bathroom Set-up: Tub-shower with grab bars, no shower chair Baseline Mobility: Ambulates without an assistive device. Independent with I/ADLs, including driving. 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 He enjoys taking care of his property including [place]. He sleeps in a flat bed. 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 His son lives in a camper on the property, doesn't assist pt. Equipment at home: FWW, 4WW, cane Fall history: Denies any falls in the last year, reports a fall last April Precautions/Special Considerations: Full Code, At risk to Fall Lines: Telemetry, PIV Activity Orders: 5 minute walk and up and down stairs Diet: Carb Controlled Diet Mobility and Positioning Recommendations: Pt. to utilize 1 person assist and no assistive device for transfers and ambulation with nursing. Please encourage up to chair for meal times as able. Pt encouraged to ambulate frequently with staff, getting into the bathroom for toileting and walking out in the mart >/= 3 times daily as able. Subjective: ???I timed someone out in the mart, they did the loop in 3 minutes?? I get migraines like that randomly A tractor when asked what equipment he has at home Objective: Pt seen for evaluation today in conjunction with OT. Pain: Denies pain at rest or with activity, following activity pt with 2/10 migraine on R side of head (notes this is chronic and intermittent occurs at baseline) which resolved with seated break, denies any other symptoms such as pain elsewhere, diplopia, new weakness, etc Vital Signs: At Rest With Activity SpO2 (RA) 100% 100% BP 112/76 (86) mm Hg, sitting in bedside chair 177/86 (107) mm Hg, sitting in bedside chair, immediately following mobility 154/87 (108) mm Hg, sitting in bedside chair after a few minutes HR 73 bpm 107 bpm Mental Status: Alert, oriented to person, place, and time, pleasant, motivated Vision: WFL, wears glasses for reading Skin: Visible skin grossly intact, large ecchymosis to R proximal medial UE Musculoskeletal: ROM: BUE/BLE WFL Strength: BUE/BLE WFL, mild deconditioning Sensation: Intact, denies numbness or tingling, reports he had temporarily L hand tingling following cath but has since resolved Bed Mobility: Supine to Sit: NA, pt started session sitting in bedside chair Sit to Supine: NA, pt ended session sitting in bedside chair Transfers: Sit to Stand: SBA from chair to FWW Stand to Sit: SBA to chair, no assistive device Gait: Distance/Device: 50' with FWW, 250' without an assistive device Level of assist: CGA x1 Gait mechanics: Fair but decreased gait speed, short step length/height, narrow SHYAM with occasionalscissoring of gait particularly with turns, SOB requiring occasional short standing rest breaks Stairs: Ascended and descended a flight of stairs with bilateral rails, CGA x1, reciprocal, steady throughout, mild SOB following requiring short standing rest break Balance: Sitting Static: Good Sitting Dynamic: Good Standing Static: Good without and without an assistive device Standing Dynamic/Gait: Good with a walker, fair without an assistive device, some mild unsteadinesswith turns and when rushing but improved with cues for pacing Therapeutic Exercise: NA Education: Patient has been educated on transfers, gait, stairs, assistive device use/technique, balance, positioning, activity pacing/energy conservation, safety, role of therapy, and discharge planning and verbalizes and demonstrates understanding. Patient status, treatment, and mobility recommendations discussed with nursing. Pt left in bedside recliner chair, with all needs met, with call cramer in reach, and with chair alarm active following visit. Assessment: Brian Rodriguez was seen today for physical therapy evaluation. Upon evaluation, patientpresents with global deconditioning, balance deficits, SOB, hypertension, decreased endurance, and reduced activity tolerance, resulting in functional limitations. Despite these deficits, pt able to ambulate ~300' around the unit and negotiate a flight of stairs. Pt initially ambulated with the FWW but tolerated weaning to no assistive device with relatively steady gait. Following mobility, pt noted the onset of a R sided migraine and was found to be hypertensive (177/86 (107) mm Hg) that resolved after a few minutes (BP dropped to 154/87 (108) mm Hg), other vitals stable on RA, RN aware. Otherwise, pt appears to be close to his functional mobility baseline; therefore, recommend pt discharge home with check ins from his supports. Pt has no further inpatient PT needs, yet should continue to mobilize frequently with staff while in house to prevent deconditioning. Inpatient Physical Therapy Plan: evaluation only Discharge Recommendations: Based on current findings, home with daily check in Consult Recommendations: No other consults recommended at this time. Equipment needs: None Physical Therapy Goals: To be achieved by 07/04/2024: met with no assistive device Pt. to demonstrate knowledge of safety limitations and precautions and will appropriately request assistance for functional activities and to mobilize. Pt. to demonstrate understanding of appropriate therapeutic exercises. Pt. to perform bed mobility with supervision with HOB flat. Pt. to perform sit<>stand transfers with supervision with the least restrictive assistive device. Pt. to perform stand-step transfers with supervision with the least restrictive assistive device. Pt. to ambulate 150 feet with supervision using the least restrictive assistive device. Pt. to ambulate up/down a flight of stairs using two rails with supervision. Pt will tolerate progression towards upright with stable vital signs. 2017 PT Evaluation Code Rationale: Diagnosis & Pertinent Co-Morbidities, personal factors, and present illness affecting Plan of Care: Total # of Factors: 0 1-2 3+ Examination of body system impairments, functional limitations and behaviors, and/or participation restrictions Addressing 1-2 elements Addressing 3 + elements Addressing 4 + elements Clinical presentation: See assessment above. Stable/Uncomplicated Evolving/Fluctuating Symptoms Unstable/Unpredictable X- HTN Clinical decision making of moderate complexity based on pt's functional performance as outlined inthis evaluation. Time IN/OUT: 9:40-10:18 Total Time: 38 minutes, Moderate Complexity Evaluation Qing Braxton, PT Pager: [phone] Physical Therapy Inpatient Rehabilitation Department * Day, Tray Bassett OT - 07/04/2024 9:40 AM EDT Occupational Therapy Evaluation Patient profile: Brian Rodriguez is a 74 y.o. male admitted on 06/30/2024 with PMHx of HTN, HLD, migraines, DM2, and UC who was [place] [facility] [place] and now found to have HFrEF. Pt now s/p PCIto LCX. Past Medical History: Diagnosis Date Asthma 10/01/2011 Diabetes mellitus 10/01/2011 GERD (gastroesophageal reflux disease) 10/01/2011 Hearing loss 10/01/2011 Hydrocele 10/01/2011 Ulcerative colitis 10/01/2011 Past Surgical History: Procedure Laterality Date PRO COLONOSCOPY, BIOPSY N/A 02/12/2017 COLONOSCOPY FLEXIBLE, WITH BX (WRVU 3.66) performed by Dion Osullivan MD at [facility] PRO COLONOSCOPY, BIOPSY N/A 02/22/2019 COLONOSCOPY FLEXIBLE, WITH BX (WRVU 3.66) performed by Dion Osullivan MD at [facility] PRO COLONOSCOPY, BIOPSY N/A 03/28/2022 COLONOSCOPY FLEXIBLE, WITH BX (WRVU 3.66) performed by Mona Turner MD at [facility] PRO COLONOSCOPY, BIOPSY N/A 01/20/2024 COLONOSCOPY FLEXIBLE, WITH BX (WRVU 3.56) performed by Anthony Hamlin MD at [facility] PRO COLONOSCOPY, DIAGNOSTIC 11/27/2011 COLONOSCOPY, DIAGNOSTIC performed by Dion OSULLIVAN at [facility] PRO COLONOSCOPY, DIAGNOSTIC 07/13/2014 COLONOSCOPY, DIAGNOSTIC performed by Dion Osullivan MD at [facility] PRO COLONOSCOPY, REMV LESN, SNARE N/A 02/22/2019 COLONOSCOPY, POLYPECTOMY, REMOVAL LESION BY SNARE (WRVU 4.67) performed by Dion Osullivan MD at [facility] PRO COLONOSCOPY, REMV LESN, SNARE N/A 02/26/2021 COLONOSCOPY, POLYPECTOMY, REMOVAL LESION BY SNARE (WRVU 4.67) performed by Dion Osullivan MD at [facility] PRO SIGMOIDOSCOPY, DIAGNOSTIC 03/16/2012 FLEXIBLE SIGMOIDOSCOPY performed by YUDI MALLOY at [facility] PRO UPPER GI ENDOSCOPY, DIAGNOSTIC N/A 04/28/2019 EGD, UPPER GI ENDOSCOPY performed by Iza Coates MD at [facility] UPPER GI ENDOSCOPY, EXAM 10/01/2012 UPPER GI ENDOSCOPY performed by Dion OSULLIVAN at [facility] Social History: Home set-up: Lives on the first floor of a two level home in [place], [place] Stairs: FOS with bilateral rails vs a few stairs through the back to the first level, 8 step between rooms Bathroom Set-up: Tub-shower with grab bars, no shower chair Baseline Mobility: Ambulates without an assistive device. Independent with I/ADLs, including driving. 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 He enjoys taking care of his property including [place]. He sleeps in a flat bed. 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 His son lives in a camper on the property, doesn't assist pt. Equipment at home: FWW, 4WW, cane Fall history: Denies any falls in the last year, reports a fall last April (2022) Precautions/Special Considerations: Full Code, At risk to Fall Lines: Telemetry, PIV, RLQ drain Activity Orders: 5 minute walk and up and down stairs Diet: Carb Controlled Diet Staff Recommendations: Bathroom for toileting Reorient pt multiple times a day as needed Assist pt OOB to chair for meals Promote wellbeing through engagement in leisure and relaxation activities Encourage good sleep hygiene with appropriate sleep/wake cycles Utilize upright chair position using bed features or transfer to recliner chair as appropriate Encourage participation in ADL's and provide physical assist only as needed Subjective: I feel fine. Objective: Seen today for OT evaluation. Pain: Pain Score: 2/10 Location: Migraine -after ambulation in hallway. Intervention: Eval/Treatment modified to patient's pain tolerance Vitals: Exertional Deficit: Yes Deficits Noted: Fatigue due to medical condition Vitals Taken: BP, HR, and SpO2 Vitals Position: Sitting and Post treatment Blood Pressure: 112/76 (86) mmHg pre-eval sitting in bedside chair; 177/86 (107) then 154/87 (108) mmHg post-eval sitting in bedside chair. HR: 78 bpm pre-eval sitting in bedside chair; 82 bpm post-eval sitting in bedside chair; HR reaching 107 bpm during activity. SpO2: 100% on RA pre/post-eval sitting in bedside chair. Cognitive Status/Behavior: Behavior / Mood: alert and cooperative Oriented to: WFL Follows commands: 1 step and 100% of the time Attention: WFL Safety awareness: decreased insight into deficits and impulsive (mildly) Vision & Perception: corrective lenses for reading Communication/Hearing: WFL Hard of hearing on R ear but WFL. Musculoskeletal: Hand dominance: ambidextrous ROM: WFL Strength: Not assessed further than AROM as above. Sensation: Pt reported diminished sensation in L UE in hand prior to cardiac cath, but has since ended. Skin: appears WFL Edema: Yes Edema Details: mild B LE edema Activities of Daily Living Assessment: Self-feeding: Not completed Grooming: Ind to apply deodorant standing at sink Dressing: SBA to don pant sitting then standing from bedside chair; Setup to doff/don gown standingat sink d/t lines (presumed Ind otherwise) Bathing: SBA to complete sponge bathing standing at sink with cueing needed for safety d/t impulsivity only. - Phys assist needed to wash/dry back this session. Toileting: Not completed Instrumental Activity of Daily Living Assessment: Cooking: No Assistance Required Home Management: Requires Physical Assistance Finances: No Assistance Required Medications: No Assistance Required Shopping: No Assistance Required Functional Mobility: Supine to sit: Not completed - Pt began/ended session sitting in bedside chair. Sit to stand: SBA to FWW from bedside chair initially but progressing to SBA without AD at end of session during pants donning. Ambulation: SBA with FWW initially to BR for ADLS but progressing to ambulating w/ SBA w/o AD to/from room and around unit ~300ft with x0 rest breaks. Stand to sit: SBA to bedside chair with good eccentric control Sit to supine: Not completed - Pt ended session sitting in bedside chair. Balance: Static sitting: Good Dynamic sitting: Good Static standing balance: Good Dynamic standing balance: Good Education: Role of Occupational Therapy, Plan of care , Activity tolerance, Safety during ADL's andfunctional mobility , Alternating rest/activity , and Discharge planning Patient status, treatment, and mobility recommendations discussed with nursing. Pt was left sittingin bedside chair with all needs met, call light within reach. Chair alarm on. RN notified of position. Assessment: Brian Rodriguez has been seen for occupational therapy evaluation and presented with thefollowing performance skill deficits and client factors: decreased activity tolerance, decreased sitting/standing balance, hemodynamic instability, and deconditioning. These performance deficits haveled to activity limitations and participation restrictions in the following areas of occupation: bathing, transfers/mobility, home management, leisure participation, and driving. However, despite thedeficits listed above pt demonstrates the ability to complete all LB dressing with SBA, all UB dressing with setup (presumed Ind without lines), all bathing with SBA standing at sink to sponge bathe with cueing needed only for safety d/t impulsivity. Pt was able to complete all grooming tasks Ind standing at sink. Pt was able to complete functional ambulation to/from room and around unit ~300ft without AD and expressed no concerns upon d/c home. Pt is near functional baseline. Anticipate that pt will return home with assistance once medically ready. Do not anticipate further OT needs while hospitalized. Equipment needs at discharge: Equipment Needs Upon Discharge (OT): shower chair Anticipated Discharge Disposition (OT): home (with assist/checkin from family.) Plan: OT: Therapy Frequency (OT): evaluation only Total Minutes, Occupational Therapy: 39 ([id number]; Eval; 1 unit) 2017 OT Evaluation Code Rationale: Diagnosis & Pertinent Co-Morbidities affecting Plan of Care: see PMHx Occupational Profile & Client History: Brief Expanded Extensive x Assessment of Occupational Performance: 1-3 performance deficits 3-5 performance deficits x 5 + performance deficits Clinical Decision Making: Low Moderate High x Clinical decision making of low complexity using standardized patient assessment instrument and measurable assessment of functional outcome. Pager: [phone] Tray Logan OTR/L Occupational Therapy Rehabilitation Department * Armond Denny MD - 07/03/2024 7:03 AM EDT Inpatient Cardiology Progress Note Patient Name: Brian Rodriguez Date of Admission: 06/30/2024 ( Hospital Day 3 days ) Service: S2 ID: Brian Rodriguez is a 74 y.o. male with PMHx of HTN, HLD, migraines, DM2, and UC who presented [facility] for chest pain and [place] [facility] [place] found to have HFrEF. Active Problems: Active Hospital Problems Diagnosis NSTEMI (non-ST elevated myocardial infarction) Resolved Hospital Problems No resolved problems to display. 24 hr events: Yesterday - Started on GDMT with metop 12.5q6 and spironolactone 12.5 daily - CT abdo without acute process Overnight - no acute events This AM: - chest pain free - endorsing new complaint of R flank/RLQ abdominal pain, tender to palpation ROS: Denies CP, SOB, palpitations, PND, Orthopnea, dizziness/LH, LE swelling or pain, n/v, abd pain. Physical Exam: 2L NC Last value Range last 24 hrs Temperature Temp: 36.7 ??C (98.1 ??F) Temp: [36.6 ??C (97.9 ??F)-37.2 ??C (99 ??F)] Heart Rate Heart Rate: 75 Heart Rate: [75-112] Blood Pressure BP: 120/73 BP: (120-136)/(56-77) Respiratory Rate Resp: 18 Resp: [16-18] SpO2 SpO2: 95 % SpO2: [95 %-100 %] Weight: Patient Vitals for the past 168 hrs: Weight 07/03/24 0343 111.9 kg (246 lb 11.1 oz) 07/02/24 0353 111.1 kg (244 lb 14.9 oz) 07/01/24 0307 109.5 kg (241 lb 4.8 oz) 06/30/24 1547 110.1 kg (242 lb 11.2 oz) Admit Weight: 110.09 kg Yesterday's net I/O's: Intake/Output Summary (Last 24 hours) at 07/03/2024 0704 Last data filed at 07/03/2024 0351 Gross per 24 hour Intake 1040 ml Output 1100 ml Net -60 ml Gen: pleasant male in NAD HEENT: MMM CV: RRR, s1/s2 of nl character and amplitude, no m/r/g, JVP not elevated Resp: CTAB Abd: nondistended, normal bowel sounds, R CVA tenderness and RLQ tenderness appreciated to palpation Ext: WWP, ++ dp/pt pulses, no peripheral edema Neuro: alert and responsive. Without focal deficit Labs Recent Labs 07/03/24 0402 07/02/24 0707/01/24 1032 WBC 5.90 5.99 7.02 HGB 11.0* 11.3* 12.2* HCT 33.1* 34.3* 36.5* PLATELET 156 155 167 Recent Labs 07/03/24 0402 07/02/24 0712 06/30/24 2325 NA 138 136 141 K 3.6 3.6 3.4* CL 105 104 106 CO2 24 25 BUN 15 13 10 CREATININE 1.25 1.18 1.02 No results for input(s): AST, ALT, ALKPHOS, BILITOT, BILIDIR in the last 168 hours. Recent Labs 07/03/24 0402 07/02/24 0706/30/24 2325 CALCIUM 9.2 8.8 9.2 MAGNESIUM 0.86 0.89 0.84 Last 3 ProBNP, Trop, CK Recent Labs 06/30/24 1809 PROBNP 2,259* Trops: OSH 4143 >20,000[place] [facility] [place] 1274 06/30 Telemetry: some PVCs Imaging/Studies: EKG: Sinus rhythm Occasional Premature ventricular complexes and Premature atrial complexes. Right bundle branch block TTE: -Left ventricular systolic function is moderately reduced. The left ventricular ejection fraction is 36% by Dowd's biplane. The anterolateral and inferolateral barahona are akinetic. The anterior wall is hypokinetic. -Right ventricle is mildly dilated. Systolic function is normal. -No significant valve disease. XR Abdo: NAD CT Abdomen: 1. No acute infectious/inflammatory process. 2. Diverticulosis with no evidence of acute diverticulitis. 3. Similar appearance of nonspecific bilateral perinephric fat stranding. This can be a normal incidental finding in a patient of this age. Suggest correlation with urinalysis to exclude urinary tract infection. Cardiac Catheterization: ([facility]) RIGHT dominance LVEDP 10 Artery Lesion Intervention LM Mild LAD Mild LCx 90% prox to mid LCX prior to OM1/OM2 branch Stent RCA Mild Scheduled Medications: metoproloL tartrate 12.5 mg Oral Q6H JANY spironolactone 12.5 mg Oral Daily atorvastatin 80 mg Oral Daily ketoconazole Topical (Top) Daily losartan 100 mg Oral Daily pantoprazole EC 40 mg Oral Daily sulfaSALAzine 1,500 mg Oral BID tamsulosin 0.8 mg Oral Daily sodium chloride 0.9 % (flush) 5 mL Intravenous BID aspirin 81 mg Oral Daily clopidogreL 75 mg Oral Daily insulin lispro 1-4 Units Subcutaneous TID AC insulin glargine (Lantus;Semglee) (100 unit/mL) subcutaneous injection 70 Units Subcutaneous Nightly folic acid 1,000 mcg Oral Daily PRN Medications: ondansetron, dicyclomine, sodium chloride 0.9 % (flush), lidocaine, nitroGLYcerin, ipratropium-albuteroL, glucose 40% oral geL OR dextrose OR glucagon, acetaminophen Assessment: 74 y.o. male with PMHx of HTN, HLD, migraines, DM2, and UC who was [place] [facility] [place] and now found to have HFrEF. 07/03/2024: Brian remains stable s/p PCI to LCX. He has been started on metoprolol and spironolactone for GDMT,and he otherwise continues on his home losartan. Will increase metoprolol to 37.5 mg Q6H today and plan to consolidate to succinate tomorrow. Will defer SGLT2 given documented allergy to Jardiance. New flank pain is worrisome for a renal process with slowly up-trending Cr. Will keep him today andobtain urine studies. He did reassuringly have a negative CT scan of his abdomen yesterday with otherwise benign labs making a bleed/hematoma less likely. Plan to discharge tomorrow pending stabilization of kidney function. Plan: #NSTEMI #HFrEF > trops elevated to 4143 and 20,000 at OSH > today trending down and 1234 and 1274 yesterday. > TTE with reduced EF (36%), hypokinesis in anterior wall, and akinesis in the anterolateral andinferolateral barahona - s/p ASA and Plavix load, s/p heparin gtt - DAPT: continue 81 mg ASA and 75 mg plavix - continue atorvastatin 80 mg - GDMT: - continue Losartan 100 mg (home dose) - increase Metoprolol to 25 mg Q6H - continue spironolactone 12.5 daily - SGLT2: will defer given he has previously had an allergic reaction to Jardiance #HTN #HLD - continue atorvastatin 80 mg - continue losartan 100 mg daily #Acute flank pain #Ulcerative Colitis Most recent flare 2 weeks ago with nonbloody diarrhea. No drops in Hb Some distension and abdominal pain with palpation. KUB and CT abdo without any acute changes. - continue home sulfasalazine 3, 500 mg twice a day - dicyclomine PRN for cramping - follow up UA #Migraines - holding propranolol, continue metoprolol - stop sumatriptan indefinitely, will need outpatient follow up for different acute migraine option - Tylenol 650 PRN for headache #DM2 States his BGL at home resides around 130. A1c elevated at 7.3. Will need outpatient follow up for correction changes. - holding home glipizide and metformin - glargine 70 U PM - SSI #GERD - takes omeprazole at home, started on pantoprazole here given plavix contraindication #Other - DVT prophylaxis: LMWH - GI prophylaxis: pantoprazole - Diet: Healthy Choices/Cardiac Diet - Code Status: Full - Dispo: pending clinical course Code Status: Attempt Cardiopulmonary Resuscitation - Inpatient Katia Reid MD Internal Medicine PGY-3 Pager [phone], M1-S2 Service CARDIOLOGY STAFF NOTE I have personally interviewed and examined the patient and reviewed appropriate data, including labs, ECGs and other diagnostic studies. I agree with the principal findings documented above. The assessment and plan were formulated in discussion with me. Armond Denny MD, [facility], [facility] Staff Licensed Practical Nurse Instructor study lead * Armond Denny MD - 07/02/2024 6:17 AM EDT Inpatient Cardiology Progress Note Patient Name: Brian M Rodriguez Date of Admission: 06/30/2024 ( Hospital Day 2 days ) Service: S2 ID: Brian Rodriguez is a 74 y.o. male with PMHx of HTN, HLD, migraines, DM2, and UC [facility] and [facility] [place] [facility] [place] found to have HFrEF. Active Problems: Active Hospital Problems Diagnosis NSTEMI (non-ST elevated myocardial infarction) Resolved Hospital Problems No resolved problems to display. 24 hr events: Yesterday - some emesis and cramping, improved after BM - catheterization: stented prox Lcx through OM2 branch Overnight - no acute events This AM: - chest pain free, no new complaints - less abdominal pain today ROS: Denies CP, SOB, palpitations, PND, Orthopnea, dizziness/LH, LE swelling or pain, n/v, abd pain. Physical Exam: 2L NC Last value Range last 24 hrs Temperature Temp: 36.8 ??C (98.2 ??F) Temp: [36.7 ??C (98.1 ??F)-37.2 ??C (99 ??F)] Heart Rate Heart Rate: 84 Heart Rate: [72-99] Blood Pressure BP: 129/86 BP: (101-138)/(52-87) Respiratory Rate Resp: 18 Resp: [18-22] SpO2 SpO2: 95 % SpO2: [86 %-98 %] Weight: Patient Vitals for the past 168 hrs: Weight 07/02/24 0353 111.1 kg (244 lb 14.9 oz) 07/01/24 0307 109.5 kg (241 lb 4.8 oz) 06/30/24 1547 110.1 kg (242 lb 11.2 oz) Admit Weight: 110.09 kg Yesterday's net I/O's: Intake/Output Summary (Last 24 hours) at 07/02/2024 0617 Last data filed at 07/02/2024 0352 Gross per 24 hour Intake 2300 ml Output 500 ml Net 1800 ml Gen: pleasant male in NAD HEENT: MMM CV: RRR, s1/s2 of nl character and amplitude, no m/r/g, JVP not elevated Resp: CTAB Abd: nondistended, normal bowel sounds abdomen less tender Ext: WWP, ++ dp/pt pulses, no peripheral edema Neuro: alert and responsive. Without focal deficit Labs Recent Labs 07/01/24 1032 07/01/24 0315 06/30/24 1808 WBC 7.02 5.82 6.45 HGB 12.2* 11.9* 12.7* HCT 36.5* 35.6* 38.0* PLATELET 167 169 79* Recent Labs 06/30/24 2325 06/30/24 1809 NA 141 140 K 3.4* 4.2 CL 106 105 CO2 25 21* BUN 10 10 CREATININE 1.02 0.98 No results for input(s): AST, ALT, ALKPHOS, BILITOT, BILIDIR in the last 168 hours. Recent Labs 06/30/24 2325 CALCIUM 9.2 MAGNESIUM 0.84 Last 3 ProBNP, Trop, CK Recent Labs 06/30/24 1809 PROBNP 2,259* Trops: OSH 4143 >20,000>> [facility] [place]34 [place] 1274 06/30 Telemetry: some PVCs Imaging/Studies: EKG: Sinus rhythm Occasional Premature ventricular complexes and Premature atrial complexes. Right bundle branch block TTE: -Left ventricular systolic function is moderately reduced. The left ventricular ejection fraction is 36% by Dowd's biplane. The anterolateral and inferolateral barahona are akinetic. The anterior wall is hypokinetic. -Right ventricle is mildly dilated. Systolic function is normal. -No significant valve disease. XR Abdo: NAD CT Abdomen: 1. No acute infectious/inflammatory process. 2. Diverticulosis with no evidence of acute diverticulitis. 3. Similar appearance of nonspecific bilateral perinephric fat stranding. This can be a normal incidental finding in a patient of this age. Suggest correlation with urinalysis to exclude urinary tract infection. Cardiac Catheterization: ([facility]) RIGHT dominance LVEDP 10 Artery Lesion Intervention LM Mild LAD Mild LCx 90% prox to mid LCX prior to OM1/OM2 branch Stent RCA Mild Scheduled Medications: atorvastatin 80 mg Oral Daily ketoconazole Topical (Top) Daily losartan 100 mg Oral Daily pantoprazole EC 40 mg Oral Daily sulfaSALAzine 1,500 mg Oral BID tamsulosin 0.8 mg Oral Daily sodium chloride 0.9 % (flush) 5 mL Intravenous BID aspirin 81 mg Oral Daily clopidogreL 75 mg Oral Daily insulin lispro 1-4 Units Subcutaneous TID AC insulin glargine (Lantus;Semglee) (100 unit/mL) subcutaneous injection 70 Units Subcutaneous Nightly folic acid 1,000 mcg Oral Daily PRN Medications: ondansetron, dicyclomine, sodium chloride 0.9 % (flush), lidocaine, nitroGLYcerin, ipratropium-albuteroL, glucose 40% oral geL OR dextrose OR glucagon, acetaminophen Assessment: 74 y.o. male with PMHx of HTN, HLD, migraines, DM2, and UC who was [place] [facility] [place] and now found to have HFrEF. 07/02/2024 Patient is HDS. Catheterization with stent to Lcx without complication. Heparin gtt discontinued post cath. Given his now HFrEF, will add additional GDMT today including Metoprolol 12.5q6 and spironolactone 12.5 mg daily. Will defer SGLT2 given documented allergy to Jardiance. Abdo pain improved and no further emesis. CT abdo without abdominal changes and no drops in Hb. Plan: #NSTEMI #HFrEF > trops elevated to 4143 and 20,000 at OSH > today trending down and 1234 and 1274 yesterday. > TTE with reduced EF (36%), hypokinesis in anterior wall, and akinesis in the anterolateral andinferolateral barahona - s/p ASA and Plavix load, s/p heparin gtt - DAPT: continue 81 mg ASA and 75 mg plavix - continue atorvastatin 80 mg - GDMT: - continue Losartan 100 mg (home dose) - start Metoprolol 12.5q6 - start spironolactone 12.5 daily - SGLT2: will defer given he has previously had an allergic reaction to Jardiance #HTN #HLD - continue atorvastatin 80 mg - continue losartan 100 mg daily - started on spironolactone 12.5 daily #Ulcerative Colitis Most recent flare 2 weeks ago with nonbloody diarrhea. No drops in Hb Some distension and abdominal pain with palpation. KUB and CT abdo without any acute changes. - continue home sulfasalazine 3, 500 mg twice a day - dicyclomine PRN for cramping #Migraines - holding propranolol, start metoprolol 12.5q6 - stop sumatriptan indefinitely, will need outpatient follow up for different acute migraine option - Tylenol 650 PRN for headache #DM2 States his BGL at home resides around 130. A1c elevated at 7.3. Will need outpatient follow up for load tallier changes. - holding home glipizide and metformin - glargine 70 U PM - SSI #GERD - takes omeprazole at home, started on pantoprazole here given plavix contraindication #Other - DVT prophylaxis: heparin gtt - GI prophylaxis: pantoprazole - Diet: Healthy Choices/Cardiac Diet thereafter - Code Status: Full - Dispo: pending clinical course Code Status: Attempt Cardiopulmonary Resuscitation - Inpatient Ronel Hensley MD Internal Medicine PGY-1 Pager [phone], M1-S2 Service CARDIOLOGY STAFF NOTE I have personally interviewed and examined the patient and reviewed appropriate data, including labs, ECGs and other diagnostic studies. I agree with the principal findings documented above. The assessment and plan were formulated in discussion with me. Armond Denny MD, [facility], [facility] Staff Licensed Practical Nurse Instructor study lead * Armond Denny MD - 07/01/2024 6:15 AM EDT Inpatient Cardiology Progress Note Patient Name: Brian Rodriguez Date of Admission: 06/30/2024 ( Hospital Day 1 day ) Service: S2 ID: Brian Rodriguez is a 74 y.o. male with PMHx of HTN, HLD, migraines, DM2, and UC who presented [facility] for chest pain and was transferred [place] [facility] [place] found to have HFrEF. Active Problems: Active Hospital Problems Diagnosis NSTEMI (non-ST elevated myocardial infarction) Resolved Hospital Problems No resolved problems to display. 24 hr events: Yesterday - transferred [place] [facility] [place] Overnight - no acute events This AM: - feeling lousy because he hasn't eaten in 3 days, sore belly - chest pain free - his BGL is 106 this morning, he typically runs at 130 at home - during rounds, notified of vomiting and cramping ROS: Denies CP, SOB, palpitations, PND, Orthopnea, dizziness/LH, LE swelling or pain, n/v, abd pain. Physical Exam: 2L NC Last value Range last 24 hrs Temperature Temp: 37 ??C (98.6 ??F) Temp: [36.8 ??C (98.2 ??F)-37 ??C (98.6 ??F)] Heart Rate Heart Rate: 72 Heart Rate: [67-86] Blood Pressure BP: 111/72 BP: (111-137)/(67-78) Respiratory Rate Resp: 19 Resp: [8-20] SpO2 SpO2: 95 % SpO2: [95 %-98 %] Weight: Patient Vitals for the past 168 hrs: Weight 07/01/24 0307 109.5 kg (241 lb 4.8 oz) 06/30/24 1547 110.1 kg (242 lb 11.2 oz) Admit Weight: 110.09 kg Yesterday's net I/O's: Intake/Output Summary (Last 24 hours) at 07/01/2024 1019 Last data filed at 07/01/2024 0800 Gross per 24 hour Intake 0 ml Output 700 ml Net -700 ml Gen: pleasant male in NAD HEENT: MMM CV: RRR, s1/s2 of nl character and amplitude, no m/r/g, JVP not elevated Resp: CTAB Abd: nondistended, normal bowel sounds some tenderness to palpation diffusely Ext: WWP, ++ dp/pt pulses, no peripheral edema Neuro: alert and responsive. Without focal deficit Labs Recent Labs 07/01/24 0315 06/30/24 1808 WBC 5.82 6.45 HGB 11.9* 12.7* HCT 35.6* 38.0* PLATELET 169 79* Recent Labs 06/30/24 2325 06/30/24 1809 NA 141 140 K 3.4* 4.2 CL 106 105 CO2 25 21* BUN 10 10 CREATININE 1.02 0.98 No results for input(s): AST, ALT, ALKPHOS, BILITOT, BILIDIR in the last 168 hours. Recent Labs 06/30/24 2325 CALCIUM 9.2 MAGNESIUM 0.84 Last 3 ProBNP, Trop, CK Recent Labs 06/30/24 1809 PROBNP 2,259* Trops: OSH 4143 >20,000>> [facility] [place]34 and 1274 last night Telemetry: NSR some IVCD consistent with RBBB Imaging/Studies: EKG: Sinus rhythm Occasional Premature ventricular complexes and Premature atrial complexes. Right bundle branch block TTE: -Left ventricular systolic function is moderately reduced. The left ventricular ejection fraction is 36% by Dowd's biplane. The anterolateral and inferolateral barahona are akinetic. The anterior wall is hypokinetic. -Right ventricle is mildly dilated. Systolic function is normal. -No significant valve disease. XR Abdo: NAD Scheduled Medications: atorvastatin 80 mg Oral Daily ketoconazole Topical (Top) Daily losartan 100 mg Oral Daily pantoprazole EC 40 mg Oral Daily sulfaSALAzine 1,500 mg Oral BID tamsulosin 0.8 mg Oral Daily sodium chloride 0.9 % (flush) 5 mL Intravenous BID aspirin 81 mg Oral Daily clopidogreL 75 mg Oral Daily insulin lispro 1-4 Units Subcutaneous TID AC insulin glargine (Lantus;Semglee) (100 unit/mL) subcutaneous injection 70 Units Subcutaneous Nightly folic acid 1,000 mcg Oral Daily Infusing Medications: heparin (porcine) infusion 1,450 Units/hr (07/01/24 1018) PRN Medications: ondansetron, dicyclomine, sodium chloride 0.9 % (flush), lidocaine, nitroGLYcerin, ipratropium-albuteroL, glucose 40% oral geL OR dextrose OR glucagon, acetaminophen, heparin (porcine) infusion AND heparin (porcine) Assessment: 74 y.o. male with PMHx of HTN, HLD, migraines, DM2, and UC who was [place] [facility] [place] and now found to have HFrEF. 07/01/2024 K and Mg repleted this morning. Continuing heparin gtt through cath today. Trops trended down to 1274. Zophran prn added for vomiting and cramping this morning. His abdominal XR yesterday showed no acute concerns. He improved with zophran and a BM, so will defer the ordered CT abdo for now in effort to get his LHC today. Will also recheck his CBC, HnH currently stable. Plan: #NSTEMI #HFrEF > trops elevated to 4143 and 20,000 at OSH > today trending down and 1234 and 1274 yesterday. > TTE with reduced EF, hypokinesis in anterior wall, and akinesis in the anterolateral and inferolateral barahona - s/p ASA and Plavix load - continue heparin gtt - DAPT: continue 81 mg ASA and 75 mg plavix - restarted atorvastatin 80 mg - NPO today for LHC, can restart diet after - GDMT: - continue Losartan 100 mg (home dose) - consider BBlocker after cath - consider spironolactone - SGLT2: will defer given he has previously had an allergic reaction to Jardiance #HTN #HLD - continue atorvastatin 80 mg - continue losartan 100 mg daily #Ulcerative Colitis Most recent flare 2 weeks ago with nonbloody diarrhea. Some distension and abdominal pain with palpation. KUB yesterday without any acute changes. - continue home sulfasalazine 3, 500 mg twice a day - dicyclomine PRN for cramping - will re-consider CT abdo pending any continued sx or drop in Hb, but for now no need for scan - f/u re-check CBC #Migraines - holding propranolol, will likely start different BBlocker for GDMT - stop sumatriptan indefinitely, will need outpatient follow up for different acute migraine option - Tylenol 650 PRN for headache #DM2 States his BGL at home resides around 130. A1c elevated at 7.3. Will need outpatient follow up for load tallier changes. - holding home glipizide and metformin - glargine 70 U PM - SSI #GERD - takes omeprazole at home, started on pantoprazole here given plavix contraindication #Other - DVT prophylaxis: heparin gtt - GI prophylaxis: pantoprazole - Diet: NPO for LHC, Healthy Choices/Cardiac Diet thereafter - Code Status: Full - Dispo: pending clinical course Code Status: Attempt Cardiopulmonary Resuscitation - Inpatient Ronel Hensley MD Internal Medicine PGY-1 Pager [phone], M1-S2 Service CARDIOLOGY STAFF NOTE I have personally interviewed and examined the patient and reviewed appropriate data, including labs, ECGs and other diagnostic studies. I agree with the principal findings documented above. The assessment and plan were formulated in discussion with me. Plan for cath today and introduction of full complement of medical therapies for ACS/HFrEF. Armond Denny MD, [facility], [facility] Staff Licensed Practical Nurse Instructor study lead documented in this encounter H&P Notes * Joshua Díazdot Woodard, [employer] - 07/01/2024 9:33 AM EDT Images from the original note were not included. C Pre-Procedure H&P and Pre-Sedation Assessment Brian Rodriguez is a 74 y.o. male referred for cardiac catheterization by Dr. Denny for evaluation of NSTEMI. There have been no significant changes in health status since the prior H&P documented within the past 30 days. Bleeding concerns: Hx of anemia, ulcerative colitis Kidney disease: None Diabetes: T2DM DAPT Status (if applicable): ASA and Plavix, s/p ASA and Plavix loading Anticoagulation status: Heparin gtt NPO status: NPO except medications since 06/30/24 Alcohol History: Does not use Prior issues with sedation/anesthesia/airway: None Medical and surgical history reviewed and updated as appropriate. Allergies Allergen Reactions Erythromycin Base CIS - Unknown Jardiance [Empagliflozin] Rash Broke out in a full body rash Tetracyclines Outpatient Medications Marked as Taking for the 06/30/24 encounter (Hospital Encounter) Medication Sig Dispense Refill sulfaSALAzine (Azulfidine) 500 mg tablet Take 3 tablets by mouth 2 times daily. 540 tablet 3 losartan (Cozaar) 50 mg Tablet Take 100 mg by mouth daily. propranolol (INDERAL LA) 80 mg Capsule,Sustained Action 24 hr take 2 capsules by mouth daily for MIGRAINE PROPHYLAXIS 0 tamsulosin (FLOMAX) 0.4 mg Capsule, Sust. Release 24 hr Take 0.8 mg by mouth daily. glipiZIDE (GLUCOTROL) 10 mg 24 hr tablet Take 10 mg by mouth daily. BP 111/72 (BP Location (NBP): Left arm, Patient Position: Sitting) Pulse 72 Temp 37 ??C (98.6 ??F) (Oral) Resp 19 Ht 193 cm (6' 4) Wt 109.5 kg (241 lb 4.8 oz) SpO2 95% BMI 29.37 kg/m?? @LASTWEIGHT1@ PE NAD CV: RRR, S1 S2 physiologic, JVP estimated @ cm H2O Pulm: Non-labored, CTAB, no w/r/r Abd: soft, NT, ND, +BS, no bruits Vasc: 2+ bilat radial with favorable Eduardo's test on the R, 2+ bilat femoral pulses w/o bruits, 2+ bilat DP pulses Extr: wwp, no edema ASA: 3: Patient with severe systemic disease Mallampati: II: tonsillar pillars are blocked by the tongue Labs reviewed and notable for: Lab Results Component Value Date WBC 5.82 07/01/2024 HGB 11.9 (L) 07/01/2024 HCT 35.6 (L) 07/01/2024 MCV 98.9 (H) 07/01/2024 PLATELET 169 07/01/2024 Lab Results Component Value Date CREATININE 1.02 06/30/2024 BUN 10 06/30/2024 NA 141 06/30/2024 K 3.4 (L) 06/30/2024 CL 106 06/30/2024 CO2 25 06/30/2024 TTE 06/30/24 Conclusions -Left ventricular systolic function is moderately reduced. The left ventricular ejection fraction is 36% by Dowd's biplane. The anterolateral and inferolateral barahona are akinetic. The anterior wall is hypokinetic. -Right ventricle is mildly dilated. Systolic function is normal. -No significant valve disease. -See report for additional findings. No prior study is available. EKG: NSR, HR 73, RBBB A/P Brian Rodriguez is a 74 y.o. male referred for cardiac catheterization by Dr. Denny for evaluation of NSTEMI. Cath consent A discussion was held reviewing the benefits and attendant risks of diagnostic or therapeutic catheterization. The risks include, but are not limited to: stroke, , myocardial infarction, bleeding, limb loss, infection, dye reaction, vascular injury, arrhythmias. If an intervention is performed, risks would include the potential for vessel closure, need for emergency CABG, subacute closure, restenosis. After a discussion about the above, and having answered all questions posed, the patient was provided with a consent which was reviewed and signed. - Proceed as planned - Consent reviewed and signed - No apparent contraindication to planned procedure - Sedation plan: moderate/conscious sedation - FULL CODE - Patient to return to inpatient bed following procedure completion of cardiac catheterization Judie Díaz APRN 07/01/2024 * Ronel Hensley MD - 06/30/2024 4:26 PM EDT Cardiovascular Medicine Admission History and Physical Patient Name: Brian Rodriguez Service: S2 Team Responsible Attending: Triston Godinez MD PCP: Deacon Watters APRN PCP phone #: [phone] ID/Chief Complaint: Brian Rodriguez is a 74 y.o. male with PMHx of HTN, HLD, migraines, DM2, and UC who presented to [facility] for chest pain and was [place] [facility] [place]. History of Present Illness: Brian presented to the ED for recent chest pain that started 2 weeks ago. 2 weeks ago, while splitting wood for a fence for his hen, he had an episode of 'shocking' central chest pain with simultaneous jaw pain. It lasted for the whole day until he took his nightly 500 mg of Tylenol and went to sleep. There was no associated SOB, syncope, palpitations, diaphoresis, n/v. He has no orthopnea, swelling or pnd. He was chest pain free until he had another episode yesterday while chasing his hen withthe exact same symptoms, prompting his presentation. At OSH, he was loaded with ASA and plavix, started on a heparin gtt and started on atorvastatin 80 mg. EKGs there showed NSR with RBBB. BNP was 20,000 and trops 4143 and got to 20,000. At evaluation today, he was hemodynamically stable and chest pain free. His main complaint currently is intractable migraine. He typically takes sumatriptan for this at home. He also takes Tylenol 500 mg nightly. He is a former smoker of 6 years, 4 packs a day. He does not drink alcohol. His last UC flare was 2 weeks ago with non-bloody diarrhea. Problem List/Past Medical History Patient Active Problem List Diagnosis NSTEMI (non-ST elevated myocardial infarction) Ulcerative colitis Colonoscopy 04/08/10 (Dr. Gomes [facility]) - inflammation only within the rectum and sigmoid; extent of the exam was to the hepatic flexure; biopsies proximal to the sigmoid nl Repeat exam 11/27/11 [place] [place] mildly [...] ascending colon. Several HPs and one TA. [place] 03/2022 - [place] 1 limited to rectosigmoid, diverticulosis. No dysplasia TREATMENT: cortenemas, Asacol, Rowasa, prednisone, and imodium Anemia Mild B12, iron all nl 2020 Diabetes mellitus Hearing loss GERD (gastroesophageal reflux disease) Hydrocele Asthma Meds: No current facility-administered medications on file prior to encounter. Current Outpatient Medications on File Prior to Encounter Medication Sig Dispense Refill sulfaSALAzine (Azulfidine) 500 mg tablet Take 3 tablets by mouth 2 times daily. 540 tablet 3 losartan (Cozaar) 50 mg Tablet Take 100 mg by mouth daily. propranolol (INDERAL LA) 80 mg Capsule,Sustained Action 24 hr take 2 capsules by mouth daily for MIGRAINE PROPHYLAXIS 0 tamsulosin (FLOMAX) 0.4 mg Capsule, Sust. Release 24 hr Take 0.8 mg by mouth daily. glipiZIDE (GLUCOTROL) 10 mg 24 hr tablet Take 10 mg by mouth daily. ketoconazole (Nizoral) 2 % Cream Apply twice daily to affected areas on the groin 30 g 1 mupirocin (Bactroban) 2 % Ointment Apply topically once daily for 10 days to healing graft area. (Patient not taking: Reported on 06/06/2024) 22 g 0 dicyclomine (Bentyl) 20 mg tablet TAKE ONE TABLET BY MOUTH EVERY 8 HOURS NEEDED 90 tablet 5 [DISCONTINUED] budesonide (Uceris) 2 mg/actuation Foam 2mg rectally nightly for 2 weeks, then continue every other night (four nights per week) (Patient not taking: Reported on 06/06/2024) 133.6 g 5 [DISCONTINUED] metroNIDAZOLE (FlagyL) 500 mg Tablet Take 1 tablet by mouth 2 times daily. (Patient not taking: Reported on 06/06/2024) 20 tablet 0 atorvastatin (Lipitor) 20 mg Tablet Take 20 mg by mouth daily. sulfamethoxazole-trimethoprim DS (Bactrim DS) 800-160 mg Tablet Take 1 tablet by mouth. SUMAtriptan (Imitrex) 50 mg Tablet TAKE 1 TABLET BY MOUTH 1 TIME NEEDED FOR MIGRAINE HEADACHE [DISCONTINUED] nystatin (Mycostatin) 100,000 unit/mL Suspension Place 500,000 Units inside cheek. gabapentin (Neurontin) 300 mg Capsule Take 300 mg by mouth daily as needed. albuterol 90 mcg/actuation HFA Aerosol Inhaler Inhale 2 puffs into the lungs every 4 hours as needed for Wheezing. Use with spacer DOT SCOTT U-100 INSULIN 100 unit/mL (3 mL) pen Inject 70 Units subcutaneously. 0 metFORMIN (GLUCOPHAGE) 1,000 mg Tablet Take 500 mg by mouth daily. 0 [DISCONTINUED] lisinopril (PRINIVIL;ZESTRIL) 10 mg Tablet take 1 tablet by mouth once daily 0 folic acid (FOLVITE) 1 mg tablet Take 1 tablet by mouth daily. 90 tablet 3 omeprazole (PRILOSEC) 20 mg capsule Take 40 mg by mouth daily. Allergies: Allergies Allergen Reactions Erythromycin Base CIS - Unknown Jardiance [Empagliflozin] Rash Broke out in a full body rash Tetracyclines Social History: Tobacco: former, 6 years, 4 packs/day EtOH: none Illicits: none Vitals: Last value Range last 24 hrs Temperature Temp: 36.8 ??C (98.2 ??F) Temp: [36.8 ??C (98.2 ??F)] Heart Rate Heart Rate: 67 Heart Rate: [67] Blood Pressure BP: 137/78 BP: (137)/(78) Respiratory Rate Resp: 8 Resp: [8-18] SpO2 SpO2: 95 % SpO2: [95 %] Examination: General: Pleasant, alert, appropriate, in NAD. Appears stated age. HEENT: EOMI, PERRL, anicteric sclera. Oropharynx clear w/o lesions. Moist mucous membranes Neck: Supple with normal ROM. No obvious LAD. JVD not elevated Cardiac: Normal S1 and S2, Regular rate and rhythm; No murmrs/gallops/rubs. Respiratory: Nonlabored. Clear to auscultation bilaterally; No wheezes/ rhonci/ rales. Abd: + BS; no obvious masses. Mildly distended, pain in the RUQ, LUQ, RLQ Ext: WWP without le edema, cyanosis or clubbing. DPP 2+ bilaterally. Neuro: II-XII grossly intact. Alert and orientated, no-focal deficits, sensation intact to crude touch Skin: No rashs, no lesions, no petechiae Lines: PIV Laboratory: CBC: Recent Labs 06/06/24 0904 12/07/23 0853 WBC 6.2 6.1 HGB 12.0* 12.8* PLATELET 168 199 Chemistry: Recent Labs 06/06/24 0904 12/07/23 0853 NA 144 144 K 4.2 4.0 CL 107 109* CO2 26 24 BUN 16 12 CREATININE 1.05 1.05 GLUCOSE 136 140 Recent Labs 06/06/24 0904 12/07/23 0853 CALCIUM 9.8 9.5 LFT's: Recent Labs 06/06/24 0904 12/07/23 0853 BILITOT 0.5 0.4 ALBUMIN 4.1 4.2 ALKPHOS 71 77 ALT 18 15 AST 16 13 Coags: No results for input(s): PT, INR, PTT, FIBRINOGEN, DDIMER in the last 168 hours. Invalid input(s): THROMBIN TIME Cardiac enzymes: No results for input(s): TROPONINT, CK in the last 7068 hours. Endocrine: No results for input(s): TSH, CORTISOL in the last 7068 hours. Invalid input(s): MYCASAPZAQS6P Heme: No results for input(s): LDH, HAPTOGLOBIN, URICACID in the last 168 hours. Microbiology: None Diagnostic Studies: EKG (OSH)- Sinus rhythm Occasional Premature ventricular complexes and Premature atrial complexes. Right bundle branch block CXR (OSH)- Some pulmonary edema at the OSH, no report ASSESSMENT: Brian Rodriguez is a 74 y.o. male with PMHx of HTN, HLD, migraines, DM2, and UC who was [place] [facility] [place]. Given Brian's presentation and his highly elevated trops, his story is concerning for NSTEMI. He was loaded appropriately with ASA, plavix, and started on a heparin drip at the OSH. We will obtain annew EKG with posterior leads and TTE to further evaluate. BNP elevated to 20,000, but no signs of volume on exam. He currently has an intractable migraine. He typically uses sumatriptan for migraines and also takes Tylenol nightly. We cannot give sumatriptan given his cardiac presentation. We will try Tylenol first and see how he does. He also had significant abdominal pain on exam with some distension, so we will get a KUB. PLAN: Admit to Cardiology, S2 Team Pager # [phone] #NSTEMI > trops elevated to 4143 and 20,000 at OSH - s/p ASA and Plavix load - heparin gtt - continue 81 mg ASA - continue 75 mg plavix - repeat EKG with posterior leads - restarted atorvastatin 80 mg - TTE pending - trending trops here - NPO at midnight for [facility] tomorrow #Migraines - holding propranolol for now, reassess after TTE - stop sumatriptan - Tylenol 650 for headache #DM2 - holding home glipizide and metformin - glargine 70 U PM - SSI #HTN #HLD - restarted atorvastatin 80 mg - losartan 100 mg daily #Ulcerative Colitis Most recent flare 2 weeks ago with nonbloody diarrhea. Some distension and abdominal pain with palpation. - continue home sulfasalazine 3, 500 mg twice a day - KUB ordered #GERD - takes omeprazole at home, started on pantoprazole here given plavix contraindication Other: - DVT prophylaxis: heparin gtt - GI prophylaxis: pantoprazole - Home medications: tamsulosin 0.4 mg, losartan 100 mg, sulfasalazine 6 x 500 mg, metformin 500 mg,glipizide 10, omeprazole 40, folic acid 1 g, propranolol ER 2x 80 mg, sumatriptan 50 mg PRN, dicyclomine 20 mg, triamcinolone 0.1, ketoconazole 2% - Diet: Healthy Choices/Cardiac Diet - Code Status: Full - Dispo:pending clinical course Ronel Hensley MD PGY-1 Internal Medicine Cardiology Service Associated attestation - Triston Godinez MD - 06/30/2024 9:28 PM EDT In brief, patient admitted for non-STEMI. Quite elevated [place]. Chest pain free on arrival. TTE with moderately reduced LVEF, dense lateral akinesis. For medical therapies, early invasive management. documented in this encounter Miscellaneous Notes * Plan of Care - Jenny Reddy RN - 07/04/2024 2:53 PM EDT Brian Rodriguez discharged to Home by private car with Family member. All belongings sent with patient. MAYCO removed, incision healing well, skin free from pressure ulcers. Discharge instructions, medications, and follow-up appointments reviewed, all questions answered. Patient instructed to call with concerns. Problem: Adult Inpatient Plan of Care Goal: Plan of Care Review 07/04/2024 1453 by Jenny Reddy RN Outcome: Outcome (s) achieved 07/04/2024 1234 by Jenny Reddy RN Outcome: Ongoing (Interventions Implemented as Appropriate) Goal: Patient-Specific Goal (Individualized) 07/04/2024 1453 by Jenny Reddy RN Outcome: Outcome (s) achieved 07/04/2024 1234 by Jenny Reddy RN Outcome: Ongoing (Interventions Implemented as Appropriate) Goal: Absence of Hospital-Acquired Illness or Injury 07/04/2024 1453 by Jenny Reddy RN Outcome: Outcome (s) achieved 07/04/2024 1234 by Jenny Reddy RN Outcome: Ongoing (Interventions Implemented as Appropriate) Goal: Optimal Comfort and Wellbeing 07/04/2024 1453 by Jenny Reddy RN Outcome: Outcome (s) achieved 07/04/2024 1234 by Jenny Reddy RN Outcome: Ongoing (Interventions Implemented as Appropriate) Goal: Readiness for Transition of Care 07/04/2024 1453 by Jenny Reddy RN Outcome: Outcome (s) achieved 07/04/2024 1234 by Jenny Reddy RN Outcome: Ongoing (Interventions Implemented as Appropriate) Problem: Fall Injury Risk Goal: Absence of Fall and Fall-Related Injury 07/04/2024 1453 by Jenny Reddy RN Outcome: Outcome (s) achieved 07/04/2024 1234 by Jenny Reddy RN Outcome: Ongoing (Interventions Implemented as Appropriate) * Plan of Care - Jenny Reddy RN - 07/04/2024 12:34 PM EDT Problem: Adult Inpatient Plan of Care Goal: Plan of Care Review Outcome: Ongoing (Interventions Implemented as Appropriate) Goal: Patient-Specific Goal (Individualized) Outcome: Ongoing (Interventions Implemented as Appropriate) Goal: Absence of Hospital-Acquired Illness or Injury Outcome: Ongoing (Interventions Implemented as Appropriate) Goal: Optimal Comfort and Wellbeing Outcome: Ongoing (Interventions Implemented as Appropriate) Goal: Readiness for Transition of Care Outcome: Ongoing (Interventions Implemented as Appropriate) Problem: Fall Injury Risk Goal: Absence of Fall and Fall-Related Injury Outcome: Ongoing (Interventions Implemented as Appropriate) * Consult Note - Lilliana Knight RN - 07/04/2024 10:44 AM EDT Brian Rodriguez was seen today by Cardiac Rehabilitation for: NSTEMI, PCI, HFrEF Activity evaluation - Worked with PT/OT. Did very well per report. See their notes for details. Educational packet regarding CAD, cardiac risk factors, and managing angina given to the patient. Heart diagram reviewed. Brian is active at baseline. 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 Given parameters for home exercise. Participation in an outpatient cardiac rehabilitation program at [facility] was discussed. Patient agrees to a referral to this program. The referral will be sent at discharge and the patient should be contacted by the Program within 1-2 weeks from discharge. * Consult Note - Loraine Howell LPN - 07/04/2024 9:43 AM EDT During VAS Purposeful Rounding, an assessment of your patient's venous access was performed fby theVascular Access Service. The following tasks were performed if needed and communicated to the bedside RN Choose all that apply: [] PIV(s) checked for patency if daily need for flush needs to be performed [] CVAD was checked for patency if daily flush needs to be performed [] IV tubing clamped or capped if needed [] Visual inspection of your patient's central line dressing integrity [x] Review of indications for vascular access [] A photo was taken of your patient's central line [x] Visual inspection of your patient's IV dressing integrity [] Other While rounding an intervention was needed and communicated to the bedside RN Choose all that apply: [] Nonocclusive IV dressing addressed [] Nonocclusive CVAD dressing (please identify type of line) [] Infusion site leaking [] IV not patent and removed [] IV not indicated [] IV placed [] IV restarted [] Implanted Port, PICC or ML dressing changed if needed (either PRN or weekly) [] Other * Plan of Care - Shea Sahver RN - 07/03/2024 10:16 PM EDT Problem: Adult Inpatient Plan of Care Goal: Plan of Care Review Outcome: Ongoing (Interventions Implemented as Appropriate) Goal: Patient-Specific Goal (Individualized) Outcome: Ongoing (Interventions Implemented as Appropriate) Goal: Absence of Hospital-Acquired Illness or Injury Outcome: Ongoing (Interventions Implemented as Appropriate) Goal: Optimal Comfort and Wellbeing Outcome: Ongoing (Interventions Implemented as Appropriate) Goal: Readiness for Transition of Care Outcome: Ongoing (Interventions Implemented as Appropriate) Problem: Fall Injury Risk Goal: Absence of Fall and Fall-Related Injury Outcome: Ongoing (Interventions Implemented as Appropriate) * Plan of Care - Jenny Reddy RN - 07/03/2024 11:10 AM EDT Assumed care around 0700, assessments and vital signs as documented. Patient continues on RA, SBA w/walker and reports no pain/discomfort at this time. Problem: Adult Inpatient Plan of Care Goal: Plan of Care Review Outcome: Ongoing (Interventions Implemented as Appropriate) Goal: Patient-Specific Goal (Individualized) Outcome: Ongoing (Interventions Implemented as Appropriate) Goal: Absence of Hospital-Acquired Illness or Injury Outcome: Ongoing (Interventions Implemented as Appropriate) Goal: Optimal Comfort and Wellbeing Outcome: Ongoing (Interventions Implemented as Appropriate) Goal: Readiness for Transition of Care Outcome: Ongoing (Interventions Implemented as Appropriate) Problem: Fall Injury Risk Goal: Absence of Fall and Fall-Related Injury Outcome: Ongoing (Interventions Implemented as Appropriate) * Plan of Care - Shea Shaver RN - 07/02/2024 10:46 PM EDT Problem: Adult Inpatient Plan of Care Goal: Plan of Care Review Outcome: Ongoing (Interventions Implemented as Appropriate) Goal: Patient-Specific Goal (Individualized) Outcome: Ongoing (Interventions Implemented as Appropriate) Goal: Absence of Hospital-Acquired Illness or Injury Outcome: Ongoing (Interventions Implemented as Appropriate) Goal: Optimal Comfort and Wellbeing Outcome: Ongoing (Interventions Implemented as Appropriate) Goal: Readiness for Transition of Care Outcome: Ongoing (Interventions Implemented as Appropriate) Problem: Fall Injury Risk Goal: Absence of Fall and Fall-Related Injury Outcome: Ongoing (Interventions Implemented as Appropriate) * Plan of Care - Sujata Duncan RN - 07/02/2024 6:35 PM EDT Problem: Adult Inpatient Plan of Care Goal: Plan of Care Review Outcome: Ongoing (Interventions Implemented as Appropriate) Goal: Patient-Specific Goal (Individualized) Outcome: Ongoing (Interventions Implemented as Appropriate) Goal: Absence of Hospital-Acquired Illness or Injury Outcome: Ongoing (Interventions Implemented as Appropriate) Goal: Optimal Comfort and Wellbeing Outcome: Ongoing (Interventions Implemented as Appropriate) Goal: Readiness for Transition of Care Outcome: Ongoing (Interventions Implemented as Appropriate) Problem: Fall Injury Risk Goal: Absence of Fall and Fall-Related Injury Outcome: Ongoing (Interventions Implemented as Appropriate) * Plan of Care - Shea Shaver RN - 07/02/2024 2:02 AM EDT Problem: Adult Inpatient Plan of Care Goal: Plan of Care Review Outcome: Ongoing (Interventions Implemented as Appropriate) Goal: Patient-Specific Goal (Individualized) Outcome: Ongoing (Interventions Implemented as Appropriate) Goal: Absence of Hospital-Acquired Illness or Injury Outcome: Ongoing (Interventions Implemented as Appropriate) Goal: Optimal Comfort and Wellbeing Outcome: Ongoing (Interventions Implemented as Appropriate) Goal: Readiness for Transition of Care Outcome: Ongoing (Interventions Implemented as Appropriate) Problem: Fall Injury Risk Goal: Absence of Fall and Fall-Related Injury Outcome: Ongoing (Interventions Implemented as Appropriate) * Plan of Care - Sujata Duncan RN - 07/01/2024 6:18 PM EDT Problem: Adult Inpatient Plan of Care Goal: Plan of Care Review Outcome: Ongoing (Interventions Implemented as Appropriate) Goal: Patient-Specific Goal (Individualized) Outcome: Ongoing (Interventions Implemented as Appropriate) Goal: Absence of Hospital-Acquired Illness or Injury Outcome: Ongoing (Interventions Implemented as Appropriate) Goal: Optimal Comfort and Wellbeing Outcome: Ongoing (Interventions Implemented as Appropriate) Goal: Readiness for Transition of Care Outcome: Ongoing (Interventions Implemented as Appropriate) Problem: Fall Injury Risk Goal: Absence of Fall and Fall-Related Injury Outcome: Ongoing (Interventions Implemented as Appropriate) * Brief Op Note - Lizzette Hayden MD - 07/01/2024 5:48 PM EDT Brief Operative Note Patient Name: Brian Rodriguez : [id number] MR#: [id number] Case Date: 07/01/2024 Surgeon: Surgeons and Role: * Lizzette Hayden MD - Primary * Waqar Vega MD - Fellow - Assisting * Elmo Byrd MD - Fellow - Assisting Preoperative diagnosis: nstemi Postoperative diagnosis: Severe proximal circumflex to OM1/OM2 lesion Procedure(s) (LRB): CARDIAC CATHETERIZATION (N/A) Anesthesia: Anesthesia type not filed in the log. Minimal sedation Findings: LM: Mild LAD: Mild Circumflex: severe lesion prox to mid LCX prior to OM1/OM2 branch, stented across proximal circumflex through the OM2 branch with 2.75 x 22 mm stent with great angiographic result. OM1 branch with PAYAL 3 flow. Complications: none Estimated Blood Loss: * No values recorded between 07/01/2024 2:49 PM and 07/01/2024 5:00 PM * Specimens removed during surgery: None Fluids: Intraprocedure Crystalloid Total None PRBCs: none (See Anesthesia Record/Report for Other Blood Products) Urine Output: (no urine output recorded) Drains: none Disposition: aroused from sedation, and taken to the recovery room in a stable condition Condition: doing well without problems (Please see the Surgical Encounter Summary for any Implant and Specimen details pertinent to this patient.) Surgical Infection Prevention Bundle Used? N/A * Care Management - Billie Marion - 07/01/2024 12:11 PM EDT Brian completed a [place] Advanced directive and stated that if he was ever unable to make his own medical decisions, that he would want his daughter, Sabrina Jimenez, to make medical decisions on his behalf. His son, Enrique Rodriguez, is his alternate healthcare agent. * Initial Assessments - Susie Alonzo RN - 07/01/2024 10:52 AM EDT Office of Care Management Initial Assessment Susie Alonzo RN reviewed record and discussed patient with Care Team. Source of Information: Team, bedside nurse, medical record, and Patient Introduced self/reviewed role; services accepted. Reason for Hospitalization: heart, NSTEMI Past medical History: Past Medical History: Diagnosis Date Asthma 10/01/2011 Diabetes mellitus 10/01/2011 GERD (gastroesophageal reflux disease) 10/01/2011 Hearing loss 10/01/2011 Hydrocele 10/01/2011 Ulcerative colitis 10/01/2011 Hospitalizations Within the Past 30 Days: no previous admission in last 30 days Current Decision-Making Capacity: Self If AD's have not been completed the following surrogate would be surrogate decision maker per [place] surrogate decision making law. (Only good for 180 days) Any patient receiving care in [place] must abide by [place] law. The hierarchy for surrogate decision making is: (a) Patient???s spouse or civil union partner unless there is a divorce proceeding, separation agreement, or restraining order limiting that person???s relationship with the patient. (b) Any adult son or daughter of the patient. Sabrina Eisenberg (c) Either parent of the patient. (d) Any adult brother or sister of the patient. (e) Any adult grandchild of the patient. (f) Any grandparent of the patient. (g) Any adult aunt, uncle, niece, or nephew of the patient. (h) A close friend of the patient. (i) The agent with financial power of regulatory attorney or a conservator appointed in accordance with [place] 464-A. (j) The guardian of the patient???s estate. Advance Care Planning: Attempt Cardiopulmonary Resuscitation - Inpatient <no information> -Advanced Directive: No, need to discuss Current Coping/Education/Information Needs: able to make needs known Current Functional Ability: Independent Functional Status Prior to Admission: Independent Prior ADLs & IADLs: Independent with all ADLs & IADLs Home Environment: Others in the home: child(kirit), adult. Current Living Arrangements: home/apartment/condo. Accessibility Concerns:2 [address] 1st floor living. Daughter lives on 2nd floor. Son lives in camper on the property. In the last 12 months, was there a time when you were not able to pay the mortgage or rent on time?: No At any time in the past 12 months, were you homeless or living in a intermediate (including now)?: No In the past 12 months has the [employer], gas, oil, or water [employer] threatened to shut off services in your home?: No Within the past 12 months, you worried that your food would run out before you got the money to buymore.: Never true Within the past 12 months, the food you bought just didn't last and you didn't have money to get more.: Never true Resource / Environmental Concerns: Resource/Environmental Concerns: none In the past 12 months, has lack of transportation kept you from medical appointments or from getting medications?: No In the past 12 months, has lack of transportation kept you from meetings, work, or from getting things needed for daily living?: No Current DME: none Home Address confirmed as: [address] [place] [id number] Social & Family Supports: All names listed below confirmed with patient as current and correct Extended Emergency Contact Information Primary Emergency Contact: Sabrina Eisenberg [address]: [address] [place] [phone] [facility] Mobile Relation: Child Secondary Emergency Contact: Enrique Rodriguez Mobile Relation: Child Current Care Provided by: self Provides Primary Care For: no one Caregiver if needed: child(kirit), adult Quality of Family relationships: other (see comments) (Daughter is private/ Lives on the 2nd story of the home. He does not often know where son is , although he lives on the property) Community Resources being provided currently: clinic(s) Behavioral Health History: none noted Substance Use/Abuse listed: Social History Tobacco Use Smoking Status Former Current packs/day: 0.00 Average packs/day: 4.0 packs/day for 30.0 years (120.0 ttl pk-yrs) Types: Cigarettes Start date: 10/01/1962 Quit date: 10/01/1992 Years since quittin.7 Smokeless Tobacco Former Tobacco Comments Denies vaping In the past year have you used an illegal drug or used a prescription medication for non-medical reasons?: No 0 No problems reported 1-2 Low level 3-5 Moderate level 6-8 Substantial level 9- 10 Severe level In the past year have you had 5 or more drinks a day containing alcohol?: No 0 to 7 points: Low risk 8 to 15 points: Medium risk 16 to 19 points: High risk 20 to 40 points: Addiction likely Other Pertinent/Service Specific Information: Health/Prescription Coverage: Primary Insurance: MEDICARE Payor: MEDICARE / Plan: MEDICARE PART A & B / Product Type: *No Product type* / Secondary Insurance: [employer] ONLY if patient has Medicare A&B - Does this patient have secondary insurance?: Yes ; Prescription Coverage: Yes Preferred Pharmacy: [facility] [address] [address] [place] Status: Patient is a : No Primary Care Provider confirmed: Deacon Watters, [employer] [phone] Potential Needs for Transition of Care: none Agency Referrals: Pending PT/OT evaluation. Patient independent prior to admission, drives self Transportation: no concerns Transportation Anticipated: family or friend will provide Concerns to be Addressed: discharge planning Assessment: Patient is admitted to cardiology S2 service for NSTEMI Plan going forward: Cardiac catheterization today and likely discharge over the weekend. Pending PT/OT evaluation. During IA, does not appear to be below PLOF. Care Management team will continue to follow and assist with discharge planing and coordination of care as indicated. * Plan of Care - Sujata Duncan RN - 06/30/2024 6:50 PM EDT Problem: Adult Inpatient Plan of Care Goal: Plan of Care Review Outcome: Ongoing (Interventions Implemented as Appropriate) Goal: Patient-Specific Goal (Individualized) Outcome: Ongoing (Interventions Implemented as Appropriate) Goal: Absence of Hospital-Acquired Illness or Injury Outcome: Ongoing (Interventions Implemented as Appropriate) Goal: Optimal Comfort and Wellbeing Outcome: Ongoing (Interventions Implemented as Appropriate) Goal: Readiness for Transition of Care Outcome: Ongoing (Interventions Implemented as Appropriate) documented in this encounter Plan of Treatment Upcoming Encounters Date Type Department Care Team (Late st Contact Info) Description 08/15/2024 9:00 AM EDT Office Visit [place] [phone] Dion Osullivan MD [facility] [place] [address] 09/01/2024 9:40 AM EDT Office Visit Cardiology at [address] [phone] Franky Shaver MD [facility] [place] [address] 09/01/2024 11:20 AM EDT Office Visit Dermatology at [address] [phone] Gómez Mercer MD [facility] DR [place] [address] 09/21/2024 2:45 PM EDT Office Visit [facility] [place] [phone] Trung Hoyos MD [facility] [place] [address] Scheduled Referrals Name Type Priority Associated Diagnoses Order Schedule Referral to Cardiac Rehab Outpatient Referral Routine NSTEMI (non-ST elevated myocardial infarction) Ordered: 07/04/2024 Referral to Cardiology Outpatient Referral Routine NSTEMI (non-ST elevated myocardial infarction) Ordered: 07/04/2024 documented as of this encounter Procedures Procedure Name Priority Date/Time Associated Diagnosis Comments POC, GLUCOSE Routine 07/04/2024 1:49 PM EDT POC, GLUCOSE Routine 07/04/2024 11:55 AM EDT POC, GLUCOSE Routine 07/04/2024 11:18 AM EDT POC, GLUCOSE Routine 07/04/2024 8:04 AM EDT CBC (WITH DIFF) Routine 07/04/2024 1:43 AM EDT MAGNESIUM Routine 07/04/2024 1:43 AM EDT BASIC METABOLIC PANEL Routine 07/04/2024 1:43 AM EDT POC, GLUCOSE Routine 07/03/2024 8:02 PM EDT POC, GLUCOSE Routine 07/03/2024 4:47 PM EDT URINALYSIS BEAKER MICROSCPIC REFLEX EXAM ([facility]) Routine 07/03/2024 3:02 PM EDT URINALYSIS MICROSCOPIC WITH REFLEX TO CULTURE Routine 07/03/2024 3:02 PM EDT URINALYSIS WITH REFLEX CULTURE Routine 07/03/2024 3:02 PM EDT URINE CULTURE Routine 07/03/2024 3:02 PM EDT POC, GLUCOSE Routine 07/03/2024 11:21 AM EDT POC, GLUCOSE Routine 07/03/2024 7:24 AM EDT CBC (WITH DIFF) Routine 07/03/2024 4:02 AM EDT MAGNESIUM Routine 07/03/2024 4:02 AM EDT BASIC METABOLIC PANEL Routine 07/03/2024 4:02 AM EDT POC, GLUCOSE Routine 07/02/2024 8:45 PM EDT POC, GLUCOSE Routine 07/02/2024 4:18 PM EDT POC, GLUCOSE Routine 07/02/2024 11:21 AM EDT POC, GLUCOSE Routine 07/02/2024 7:28 AM EDT CBC (WITH DIFF) Routine 07/02/2024 7:12 AM EDT MAGNESIUM Routine 07/02/2024 7:12 AM EDT BASIC METABOLIC PANEL Routine 07/02/2024 7:[address] ABDOMEN AND PELVIS W CONTRAST Routine 07/02/2024 3:13 AM EDT POC, GLUCOSE Routine 07/01/2024 7:58 PM EDT POC, GLUCOSE Routine 07/01/2024 6:41 PM EDT EKG 12-LEAD Routine 07/01/2024 5:24 PM EDT NSTEMI (non-ST elevated myocardial infarction) CARDIAC CATHETERIZATION Routine 07/01/20 5:00 PM EDT POC, GLUCOSE Routine 07/01/2024 11:35 AM EDT HEPARIN (UNFRACTIONATED) LEVEL Timed 07/01/2024 10:32 AM EDT HEMOGRAM Routine 07/01/2024 10:32 AM EDT POC, GLUCOSE Routine 07/01/2024 7:18 AM EDT HEPARIN (UNFRACTIONATED) LEVEL Timed 07/01/2024 3:15 AM EDT CBC (WITH DIFF) Routine 07/01/2024 3:15 AM EDT TROPONIN-T, HIGH SENSITIVITY 3 HOUR PERFORMABLE STAT 06/30/2024 11:25 PM EDT MAGNESIUM Routine 06/30/2024 11:25 PM EDT BASIC METABOLIC PANEL Routine 06/30/2024 11:25 PM EDT TROPONIN-T, HIGH SENSITIVITY 1 HOUR PERFORMABLE STAT 06/30/2024 8:22 PM EDT POC, GLUCOSE Routine 06/30/2024 7:56 PM EDT XR ABDOMEN FLAT AND UPRIGHT Routine 06/30/2024 6:56 PM EDT TROPONIN-T, HIGH SENSITIVITY INITIAL PERFORMABLE STAT 06/30/2024 6:09 PM EDT TROPONIN - SERIES STAT 06/30/2024 6:0 9 PM EDT TSH Routine 06/30/2024 6:09 PM EDT PRO-BRAIN NATRIURETIC PEPTIDE Routine 06/30/2024 6:09 PM EDT LIPID PANEL (REFLEX DIRECT LDL) Routine 06/30/2024 6:09 PM EDT BASIC METABOLIC PANEL Routine 06/30/2024 6:09 PM EDT HEPARIN (UNFRACTIONATED) LEVEL Timed 06/30/2024 6:08 PM EDT CBC (WITH DIFF) Routine 06/30/2024 6:08 PM EDT HEMOGLOBIN A1C Routine 06/30/2024 6:08 PM EDT POC, GLUCOSE Routine 06/30/2024 5:58 PM EDT EKG 12-LEAD Routine 06/30/2024 5:23 PM EDT NSTEMI (non-ST elevated myocardial infarction) ECHO COMPLETE W CONTRAST Routine 06/30/2024 5:22 PM EDT NSTEMI (non-ST elevated myocardial infarction) EKG 12-LEAD STAT 06/30/2024 3:53 PM EDT NSTEMI (non-ST elevated myocardial infarction) documented in this encounter Results * (ABNORMAL) POC, GLUCOSE (07/04/2024 1:49 PM EDT) Glucometer, POC 274(H) 65 - 199 mg/dL 07/04/2024 2:12 PM EDT [facility] Comment:Supplemental ranges: <140 mg/dL before meals <180 mg/dL all other times of the day. Blood CAPILLARY BLOOD / Unknown 07/04/2024 1:49 PM EDT 07/04/2024 2:12 PM EDT Armond Denny MD POINT OF CARE TEST O CEE Performing Organization Address [facility] Co de Phone Number [facility] [place] [address] * (ABNORMAL) POC, GLUCOSE (07/04/2024 11:55 AM EDT) Glucometer, POC 287(H) 65 - 199 mg/dL 07/04/2024 11:55 AM EDT [facility] Comment:Supplemental ranges: <140 mg/dL before meals <180 mg/dL all other times of the day. Blood CAPILLARY BLOOD / Unknown 07/04/2024 11:55 AM EDT 07/04/2024 11:55 AM EDT Armond eDnny MD POINT OF CARE TEST O RDMELISSA [facility] [place] [address] * (ABNORMAL) POC, GLUCOSE (07/04/2024 11:18 AM EDT) Glucometer, POC 259(H) 65 - 199 mg/dL 07/04/2024 11:32 AM EDT [facility] Comment:Supplemental ranges: <140 mg/dL before meals <180 mg/dL all other times of the day. Blood CAPILLARY BLOOD / Unknown 07/04/2024 11:18 AM EDT 07/04/2024 11:32 AM EDT Armond Denny MD POINT OF CARE TEST O DANIELERAOMAR Performing Organization Address City/[facility] Co de Phone Number [facility] [place] [address] * POC, GLUCOSE (07/04/2024 8:04 AM EDT) Glucometer, POC 111 65 - 199 mg/dL 07/04/2024 8:04 AM EDT [facility] Comment:Supplemental ranges: <140 mg/dL before meals <180 mg/dL all other times of the day. Blood CAPILLARY BLOOD / Unknown 07/04/2024 8:04 AM EDT 07/04/2024 8:04 AM EDT Armond Denny MD POINT OF CARE TEST O CEE Performing Organization Address City/[facility]/ZIP Co de Phone Number [facility] [place] [address] * Magnesium (07/04/2024 1:43 AM EDT) Magnesium 0.80 0.69 - 1.07 mMol/L 07/04/2024 2:23 AM EDT [facility] Blood VENOUS BLOOD SPECIMEN / Unknown IP Care Team Draw / Unknown 07/04/2024 1:43 AM EDT 07/04/2024 1:52 AM EDT Triston Godinez MD CHEMISTRY ORDERABLES [facility] [place] [address] * (ABNORMAL) Basic Metabolic Panel (07/04/2024 1:43 AM EDT) Glucose 156 65 - 199 mg/dL 07/04/2024 2:23 AM EDT [facility] Comment:Glucose Concentratio n >=200 mg/dL plus symptoms is consistent with Diabetes Mellitus. Blood Urea Nitrogen 12 10 - 20 mg/dL 07/04[facility]2024 [facility] Creatinine 1.27 0.80 - 1.50 mg/dL 07/04/2024 2:23 AM [facility] Sodium 141 135 - 145 mMol/L 07/04/2024 2:23 AM [facility] Potassium 3.9 3.5 - 5.0 mMol/L 07/04/2024 2:23 AM [facility] Chloride 108(H) 98 - 107 mMol/L 07/04/2024 2:23 AM [facility] Carbon Dioxide 22 22 - 31 mMol/L 07/04/2024 2:23 AM [facility] Anion Gap 11 5 - 15 mMol/L 07/04/2024 2:23 AM [facility] Calcium 9.4 8.5 - 10.5 mg/dL 07/04/2024 2:[facility] Est Glomerular Filtration Rate - Male 59 mL/min/1. 73 m?? 07/04/2024 2:23 AM [facility] Comment: This patient's estimated [...] AM EDT Triston Godinez MD CHEMISTRY ORDERABLES [facility] [place] [address] * (ABNORMAL) CBC (with Diff) (07/04/2024 1:43 AM EDT) White Blood Cell 5.05 4.00 - 9.50 x10(3)/mc L 07/04/2024 2:00 [facility] Red Blood Cell 3.11(L) 4.58 - 5.54 x10(6)/mc L 07/04/2024 2:00 [facility] Hemoglobin 10.5(L) 13.7 - 16.5 g/dL 07/04/2024 2:00 AM [facility] Hematocrit 31.5(L) 40.5 - 48.5 % 07/04/2024 2:00 AM [facility] Mean Cell Volume 101.3(H) 82.9 - 93.1 fL 07/04/2024 2:00 AM [facility] Mean Cell Hemoglobin 33.8(H) 27.5 - 32.1 pg 07/04/2024 2:00 AM [facility] Mean Cell Hemoglobin Concentration 33.3 32.0 - 35.7 g/dL 07/04/2024 2:00 AM [facility] Platelet 145 145 - 357 x10(3)/mc L 07/04/2024 2:00 AM [facility] Mean Platelet Volume 11.5 7.6 - 12.9 fL 07/04/2024 2:00 AM [facility] RDW Standard Deviation 48.2(H) 36.0 - 45.0 fL 07/04/2024 2:00 AM [facility] RDW coefficient of variation 13.1 11.4 - 13.8 % 07/04/2024 2:00 AM [facility] NRBC% auto 0.0 % 07/04/2024 2:00 AM [facility] NRBC Absolute 0.00 0.00 - 0.00 x10(3)/mc L 07/04/2024 2:00 AM [facility] Neutrophil % 65.9 % 07/04/2024 2:00 AM [facility] Neutrophil Absolute 3.33 1.70 - 6.10 x10(3)/mc L 07/04/2024 2:00 AM [facility] Lymph % 20.8 % 07/04/2024 2:00 AM [facility] Lymph Absolute 1.05 0.90 - 3.20 x10(3)/mc L 07/04/2024 2:00 AM [facility] Monocyte % 9.3 % 07/04/2024 2:00 AM [facility] Monocyte Absolute 0.47 0.30 - 0.90 x10(3)/mc L 07/04/2024 2:00 AM [facility] Eos % 3.0 % 07/04/2024 2:00 AM [facility] Eos Absolute 0.15 0.00 - 0.40 x10(3)/mc L 07/04/2024 2:00 AM [facility] Basophil % 0.6 % 07/04/2024 2:00 AM [facility] Baso Absolute 0.03 0.00 - 0.10 x10(3)/mc L 07/04/2024 2:00 AM [facility] Immature Gran % 0.4 % 2:00 AM EDT [facility] Immature Gran Absolute 0.02 0.00 - 0.04 x10(3)/mc L 07/04/2024 2:00 AM EDT [facility] Blood VENOUS BLOOD SPECIMEN / Unknown IP Care Team Draw / Unknown 07/04/2024 1:43 AM EDT 07/04/2024 1:52 AM EDT Triston Godinez MD HEMATOLOGY ORDERABLE S Performing Organization Address [facility]/ZIP Co de Phone Number [facility] [place] [address] * (ABNORMAL) POC, GLUCOSE (07/03/2024 8:02 PM EDT) Glucometer, POC 251(H) 65 - 199 mg/dL 07/03/2024 8:02 PM EDT [facility] Comment:Supplemental ranges: <140 mg/dL before meals <180 mg/dL all other times of the day. Blood CAPILLARY BLOOD / Unknown 07/03/2024 8:02 PM EDT 07/03/2024 8:02 PM EDT Armond Denny MD POINT OF CARE TEST O CEE Performing Organization Address [facility] Co de Phone Number [facility] [place] [address] * (ABNORMAL) POC, GLUCOSE (07/03/2024 4:47 PM EDT) Glucometer, POC 217(H) 65 - 199 mg/dL 07/03/2024 4:47 PM EDT [facility] Comment:Supplemental ranges: <140 mg/dL before meals <180 mg/dL all other times of the day. Blood CAPILLARY BLOOD / Unknown 07/03/2024 4:47 PM EDT 07/03/2024 4:47 PM EDT Armond Denny MD POINT OF CARE TEST O RDERABLES Performing Organization Address [facility]/ZIP Co de Phone Number [facility] [place] [address] * (ABNORMAL) Urine culture (07/03/2024 3:02 PM EDT) Urine Culture 50,000-99,000 cfu/ml Escherichia coli(A) VITEK 2 METHOD 07/05/2024 8:01 AM EDT [facility] Urine Culture 10,000-49,000 cfu/ml mixed mucosal harika VITEK 2 METHOD 07/05/2024 8:01 AM EDT [facility] Urine URINE SPECIMEN OBTAINED BY [...] Denny MD MICROBIOLOGY - GENER AL ORDERABLES Performing Organization Address City/[facility]/ZIP Co de Phone Number [facility] [place] [address] * (ABNORMAL) Urinalysis Microscopic Reflex to Culture (07/03/2024 3:02 PM EDT) RBC, Urine 2 0 - 3 /HPF 07/03/2024 3:40 PM EDT [facility] WBC, Urine 55(H) 0 - 3 /HPF 07/03/2024 3:40 PM EDT [facility] Squamous Epithelial Cells, Urine 1 0 - 5 /HPF 07/03/2024 3:40 PM EDT [facility] Hyaline Casts, Urine 3(H) 0 - 2 /LPF 07/03/2024 3:40 PM EDT [facility] Comment 07/03/2024 3:40 PM EDT [facility] Comment:Interpret results wi th caution, microscopic results are from a suboptimal specimen. Bacteria, Urine Many(A) None /HPF 3:40 PM EDT [facility] Urine URINE SPECIMEN OBTAINED BY CLEAN CATCH PROCEDURE / Unknown Non Blood Collection / Unknown 07/03/2024 3:02 PM EDT 07/03/2024 3:13 PM EDT Armond Denny MD URINE ORDERABLES Performing Organization Address [facility] de Phone Number [facility] [place] [address] * Urinalysis Microscopic with Reflex to Culture (07/03/2024 3:02 PM EDT) Urine URINE SPECIMEN OBTAINED BY CLEAN CATCH PROCEDURE / Unknown Non Blood Collection / Unknown 07/03/2024 3:02 PM EDT 07/03/2024 3:13 PM EDT Armond Denny MD URINE ORDERABLES Performing Organization Address [facility] Co de Phone Number [facility] [place] [address] * (ABNORMAL) Urinalysis with reflex Culture (07/03/2024 3:02 PM EDT) Glucose, Urine Dipstick Negative Negative 07/03/2024 3:40 PM EDT [facility] Protein, Urine Dipstick 30 mg/dL(A) Negative 07/03/2024 3:40 PM EDT [facility] Bilirubin, Urine Dipstick Small(A) Negative 07/03/2024 3:40 PM EDT [facility] Comment:Clinical correlation required for positive Urine Bilirubin results as false positive may occur with some drugs and drug related products. If a false positive is suspected a serum total bilirubin should be considered if clinically indicated. Urobilinogen, Urine Dipstick Normal Normal, 0.2 mg/dL, 1.0 mg/dL 07/03/2024 3:40 PM EDT [facility] pH, Urine (dipstick) 5.5 5.0 - 8.0 07/03/2024 3:40 PM EDT [facility] Blood, Urine Dipstick Negative Negative 07/03/2024 3:40 PM EDT [facility] Ketone, Urine Dipstick Trace(A) Negative 07/03/2024 3:40 PM EDT [facility] Nitrite, Urine Dipstick Positive(A) Negative 07/03/2024 3:40 PM EDT [facility] Leukocytes, Urine Dipstick Moderate(A) Negative 07/03/2024 3:40 PM EDT [facility] Specific Tofte Urine Automated 1.024 1.005 - 1.030 07/03/2024 3:40 PM [facility] Appearance, Urine Dipstick Cloudy(A) Clear 07/03/2024 3:40 PM EDT [facility] Color, Urine Dipstick Dark Yellow Yellow, Dark Yellow 07/03/2024 3:40 PM EDT [facility] Urine URINE SPECIMEN OBTAINED BY CLEAN CATCH PROCEDURE / Unknown Non Blood Collection / Unknown 07/03/2024 3:02 PM EDT 07/03/2024 3:13 PM EDT Armond Denny MD URINE ORDERABLES [facility] [place] [address] * POC, GLUCOSE (07/03/2024 11:21 AM EDT) Glucometer, POC 177 65 - 199 mg/dL 07/03/2024 11:21 AM EDT [facility] Comment:Supplemental ranges: <140 mg/dL before meals <180 mg/dL all other times of the day. Blood CAPILLARY BLOOD / Unknown 07/03/2024 11:21 AM EDT 07/03/2024 11:21 AM EDT Armond Denny MD POINT OF CARE TEST O CEE Performing Organization Address City/[facility]/ZIP Co de Phone Number [facility] [place] [address] * POC, GLUCOSE (07/03/2024 7:24 AM EDT) Glucometer, POC 124 65 - 199 mg/dL 07/03/2024 7:24 AM EDT [facility] Comment:Supplemental ranges: <140 mg/dL before meals <180 mg/dL all other times of the day. Blood CAPILLARY BLOOD / Unknown 07/03/2024 7:24 AM EDT 07/03/2024 7:24 AM EDT Armond Denny MD POINT OF CARE TEST O CEE [facility] [place] [address] * Magnesium (07/03/2024 4:02 AM EDT) Magnesium 0.86 0.69 - 1.07 mMol/L 07/03/2024 4:41 AM EDT [facility] Blood VENOUS BLOOD SPECIMEN / Unknown IP Care Team Draw / Unknown 07/03/2024 4:02 AM EDT 07/03/2024 4:07 AM EDT Triston Godinez MD CHEMISTRY ORDERABLES [facility] [place] [address] * Basic Metabolic Panel (07/03/2024 4:02 AM EDT) Glucose 146 65 - 199 mg/dL 07/03/2024 4:41 AM [facility] Comment:Glucose Concentratio n >=200 mg/dL plus symptoms is consistent with Diabetes Mellitus. Blood Urea Nitrogen 15 10 - 20 mg/dL 07/03/2024 4:41 AM EDT [facility] Creatinine 1.25 0.80 - 1.50 mg/dL 07/03/2024 4:41 AM [facility] Sodium 138 135 - 145 mMol/L 07/03/2024 4:41 AM [facility] Potassium 3.6 3.5 - 5.0 mMol/L 07/03/2024 4:41 AM [facility] Chloride 105 98 - 107 mMol/L 07/03/2024 4:41 AM [facility] Carbon Dioxide 22 22 - 31 mMol/L 07/03/2024 4:41 AM [facility] Anion Gap 11 5 - 15 mMol/L 07/03/2024 4:41 AM [facility] Calcium 9.2 8.5 - 10.5 mg/dL 07/03/2024 4:41 AM [facility] Est Glomerular Filtration Rate - Male 60 mL/min/1. 73 m?? 07/03/2024 4:41 AM [facility] Comment: This patient's estimated [...] Unknown IP Care Team Draw / Unknown 07/03/2024 4:02 AM EDT 07/03/2024 4:07 AM EDT Triston Godinez MD CHEMISTRY ORDERABLES [facility] [place] [address] * (ABNORMAL) CBC (with Diff) (07/03/2024 4:02 AM EDT) White Blood Cell 5.90 4.00 - 9.50 x10(3)/mc L 07/03/2024 4:13 AM EDT [facility] Red Blood Cell 3.27(L) 4.58 - 5.54 x10(6)/mc L 07/03/2024 4:13 AM EDT [facility] Hemoglobin 11.0(L) 13.7 - 16.5 g/dL 07/03/2024 4:13 AM [facility] Hematocrit 33.1(L) 40.5 - 48.5 % 07/03/2024 4:13 AM EDT [facility] Mean Cell Volume 101.2(H) 82.9 - 93.1 fL 07/03/2024 4:13 AM EDT [facility] Mean Cell Hemoglobin 33.6(H) 27.5 - 32.1 pg 07/03/2024 4:13 AM [facility] Mean Cell Hemoglobin Concentration 33.2 32.0 - 35.7 g/dL 07/03/2024 4:13 AM EDT [facility] Platelet 156 145 - 357 x10(3)/mc L 07/03[facility]2024 [facility] Mean Platelet Volume 11.3 7.6 - 12.9 fL 07/03/2024 4:13 AM EDT [facility] RDW Standard Deviation 47.5(H) 36.0 - 45.0 fL 07/03/2024 4:13 AM [facility] RDW coefficient of variation 12.7 11.4 - 13.8 % 07/03/2024 4:13 AM [facility] NRBC% auto 0.0 % 07/03/2024 4:13 AM [facility] NRBC Absolute 0.00 0.00 - 0.00 x10(3)/mc L 07/03/2024 4:13 AM [facility] Neutrophil % 70.0 % 07/03/2024 4:13 AM [facility] Neutrophil Absolute 4.13 1.70 - 6.10 x10(3)/mc L 07/03/2024 4:13 AM [facility] Lymph % 18.3 % 07/03/2024 4:13 AM [facility] Lymph Absolute 1.08 0.90 - 3.20 x10(3)/mc L 07/03/2024 4:13 AM [facility] Monocyte % 8.5 % 07/03/2024 4:13 AM [facility] Monocyte Absolute 0.50 0.30 - 0.90 x10(3)/mc L 07/03/2024 4:13 AM [facility] Eos % 2.4 % 07/03/2024 4:13 AM [facility] Eos Absolute 0.14 0.00 - 0.40 x10(3)/mc L 07/03/2024 4:13 AM [facility] Basophil % 0.5 % 07/03/2024 4:13 AM [facility] Baso Absolute 0.03 0.00 - 0.10 x10(3)/mc L 07/03/2024 4:13 AM [facility] Immature Gran % 0.3 % 4:13 AM [facility] Immature Gran Absolute 0.02 0.00 - 0.04 x10(3)/mc L 07/03/2024 4:13 AM EDT [facility] Blood VENOUS BLOOD SPECIMEN / Unknown IP Care Team Draw / Unknown 07/03/2024 4:02 AM EDT 07/03/2024 4:07 AM EDT [place] Godinez MD HEMATOLOGY ORDERABLE S Performing Organization Address [facility] Co de Phone Number [facility] [place] [address] * (ABNORMAL) POC, GLUCOSE (07/02/2024 8:45 PM EDT) Glucometer, POC 271(H) 65 - 199 mg/dL 07/02/2024 8:46 PM EDT [facility] Comment:Supplemental ranges: <140 mg/dL before meals <180 mg/dL all other times of the day. Blood CAPILLARY BLOOD / Unknown 07/02/2024 8:45 PM EDT 07/02/2024 8:46 PM EDT Armond Denny MD POINT OF CARE TEST O CEE Performing Organization Address [facility] de Phone Number [facility] [place] [address] * (ABNORMAL) POC, GLUCOSE (07/02/2024 4:18 PM EDT) Glucometer, POC 213(H) 65 - 199 mg/dL 07/02/2024 4:19 PM EDT [facility] Comment:Supplemental ranges: <140 mg/dL before meals <180 mg/dL all other times of the day. Blood CAPILLARY BLOOD / Unknown 07/02/2024 4:18 PM EDT 07/02/2024 4:19 PM EDT Armond Denny MD POINT OF CARE TEST O CEE Performing Organization Address [facility] Co de Phone Number [facility] [place] [address] * (ABNORMAL) POC, GLUCOSE (07/02/2024 11:21 AM EDT) Glucometer, POC 234(H) 65 - 199 mg/dL 07/02/2024 11:21 AM EDT [facility] Comment:Supplemental ranges: <140 mg/dL before meals <180 mg/dL all other times of the day. Blood CAPILLARY BLOOD / Unknown 07/02/2024 11:21 AM EDT 07/02/2024 11:21 AM EDT Armond Denny MD POINT OF CARE TEST O CEE Performing Organization Address City/[facility]/ZIP Co de Phone Number [facility] [place] [address] * POC, GLUCOSE (07/02/2024 7:28 AM EDT) Glucometer, POC 171 65 - 199 mg/dL 07/02/2024 7:28 AM EDT [facility] Comment:Supplemental ranges: <140 mg/dL before meals <180 mg/dL all other times of the day. Blood CAPILLARY BLOOD / Unknown 07/02/2024 7:28 AM EDT 07/02/2024 7:28 AM EDT Armond Denny MD POINT OF CARE TEST O CEE [facility] [place] [address] * Magnesium (07/02/2024 7:12 AM EDT) Magnesium 0.89 0.69 - 1.07 mMol/L 07/02/2024 8:09 AM EDT [facility] Blood VENOUS BLOOD SPECIMEN / Unknown IP Care Team Draw / Unknown 07/02/2024 7:12 AM EDT 07/02/2024 7:19 AM EDT Triston Godinez MD CHEMISTRY ORDERABLES [facility] [place] [address] * Basic Metabolic Panel (07/02/2024 7:12 AM EDT) Glucose 161 65 - 199 mg/dL 07/02[facility]2024 8:[facility] Comment:Glucose Concentratio n >=200 mg/dL plus symptoms is consistent with Diabetes Mellitus. Blood Urea Nitrogen 13 10 - 20 mg/dL 07/02/2024 8:09 AM [facility] Creatinine 1.18 0.80 - 1.50 mg/dL 07/02/2024 8:09 AM [facility] Sodium 136 135 - 145 mMol/L 07/02/2024 8:09 AM [facility] Potassium 3.6 3.5 - 5.0 mMol/L 07/02/2024 8:09 AM [facility] Chloride 104 98 - 107 mMol/L 07/02/2024 8:09 AM [facility] Carbon Dioxide 24 22 - 31 mMol/L 07/02/2024 8:09 AM [facility] Anion Gap 8 5 - 15 mMol/L 07/02/2024 8:09 AM [facility] Calcium 8.8 8.5 - 10.5 mg/dL 07/02/2024 8:09 AM [facility] Est Glomerular Filtration Rate - Male 64 mL/min/1. 73 m?? 07/02/2024 8:09 AM [facility] Comment: This patient's estimated [...] Unknown IP Care Team Draw / Unknown 07/02/2024 7:12 AM EDT 07/02/2024 7:19 AM EDT Triston Godinez MD CHEMISTRY ORDERABLES [facility] [place] [address] * (ABNORMAL) CBC (with Diff) (07/02/2024 7:12 AM EDT) White Blood Cell 5.99 4.00 - 9.50 x10(3)/mc L 07/02/2024 7:[facility] Red Blood Cell 3.36(L) 4.58 - 5.54 x10(6)/mc L 07/02/2024 7:41 AM EDT [facility] Hemoglobin 11.3(L) 13.7 - 16.5 g/dL 07/02/2024 7:41 AM [facility] Hematocrit 34.3(L) 40.5 - 48.5 % 07/02/2024 7:41 AM [facility] Mean Cell Volume 102.1(H) 82.9 - 93.1 fL 07/02/2024 7:41 AM [facility] Mean Cell Hemoglobin 33.6(H) 27.5 - 32.1 pg 07/02/2024 7:41 AM [facility] Mean Cell Hemoglobin Concentration 32.9 32.0 - 35.7 g/dL 07/02/2024 7:41 AM [facility] Platelet 155 145 - 357 x10(3)/mc L 07/02/2024 7:41 AM [facility] Mean Platelet Volume 11.3 7.6 - 12.9 fL 07/02/2024 7:41 AM [facility] RDW Standard Deviation 48.2(H) 36.0 - 45.0 fL 07/02/2024 7:41 AM [facility] RDW coefficient of variation 12.9 11.4 - 13.8 % 07/02/2024 7:41 AM [facility] NRBC% auto 0.0 % 07/02/2024 7:41 AM [facility] NRBC Absolute 0.00 0.00 - 0.00 x10(3)/mc L 07/02/2024 7:41 AM [facility] Neutrophil % 75.2 % 07/02/2024 7:41 AM [facility] Neutrophil Absolute 4.50 1.70 - 6.10 x10(3)/mc L 07/02/2024 7:41 AM [facility] Lymph % 14.0 % 07/02/2024 7:41 AM [facility] Lymph Absolute 0.84(L) 0.90 - 3.20 x10(3)/mc L 07/02/2024 7:41 AM [facility] Monocyte % 8.7 % 07/02/2024 7:41 AM [facility] Monocyte Absolute 0.52 0.30 - 0.90 x10(3)/mc L 07/02/2024 7:41 AM [facility] Eos % 1.3 % 07/02/2024 7:41 AM [facility] Eos Absolute 0.08 0.00 - 0.40 x10(3)/mc L 07/02/2024 7:41 AM [facility] Basophil % 0.5 % 07/02/2024 7:41 AM [facility] Baso Absolute 0.03 0.00 - 0.10 x10(3)/mc L 07/02/2024 7:41 AM [facility] Immature Gran % 0.3 % 7:41 AM [facility] Immature Gran Absolute 0.02 0.00 - 0.04 x10(3)/mc L 07/02/2024 7:41 AM EDT [facility] Blood VENOUS BLOOD SPECIMEN / Unknown IP Care Team Draw / Unknown 07/02/2024 7:12 AM EDT 07/02/2024 7:19 AM EDT Triston Godinez MD HEMATOLOGY ORDERABLE S [facility] [place] [address] * CT Abdomen & Pelvis w Contrast (07/02/2024 3:13 AM EDT) WORKSTATION ID [id number] RAD Anatomical Region Laterality Modality Abdomen, Pelvis [...] who have questions please contact the health respiratory care faculty that requested your imaging first. ? Electronically signed by: Gutierrez Hamilton MD, [facility] ([phone]), at 07/02/2024 9:20 AM Narrative 07/02/2024 9:20 AM EDT EXAMINATION: CT [...] patients who have questions please contactthe health respiratory care faculty that requested your imaging first. Electronically signed by: Gutierrez Hamilton MD, [facility]([phone]), at 07/02/2024 9:20 AM Triston Godinez MD IMG CT ORDERABLES * POC, GLUCOSE (07/01/2024 7:58 PM EDT) Glucometer, POC 84 65 - 199 mg/dL 07/01/2024 7:59 PM EDT [facility] Comment:Supplemental ranges: <140 mg/dL before meals <180 mg/dL all other times of the day. Blood CAPILLARY BLOOD / Unknown 07/01/2024 7:58 PM EDT 07/01/2024 7:59 PM EDT Armond Denny MD POINT OF CARE TEST O RDERABLES Performing Organization Address [facility] Co de Phone Number [facility] [place] [address] * POC, GLUCOSE (07/01/2024 6:41 PM EDT) Glucometer, POC 91 65 - 199 mg/dL 07/01/2024 6:41 PM EDT [facility] Comment:Supplemental ranges: <140 mg/dL before meals <180 mg/dL all other times of the day. Blood CAPILLARY BLOOD / Unknown 07/01/2024 6:41 PM EDT 07/01/2024 6:41 PM EDT Armond Denny MD POINT OF CARE TEST O RDMELISSA Performing Organization Address [facility] Co de Phone Number [facility] [place] [address] * EKG 12 Lead (07/01/2024 5:24 PM EDT) Ventricular rate 77 BPM MUSE SYSTEM Atrial Rate 77 BPM MUSE SYSTEM P-R Interval 178 ms MUSE SYSTEM QRS Duration 138 ms MUSE SYSTEM Q-T Interval 418 ms MUSE SYSTEM QTC Calculated (Bezet) 473 ms MUSE SYSTEM Calculated P [place] 63 degrees MUSE SYSTEM Calculated R [place] 87 degrees MUSE SYSTEM Calculated T Minden 8 degrees MUSE SYSTEM INTERPRETATION Normal sinus rhythm Right bundle branch block Cannot rule out Inferior infarct , age undetermined Abnormal ECG When compared with ECG of 30-JUN-2024 17:23, Right bundle branch block is now Present Criteria for Septal infarct are no longer Present Confirmed by MD Melo Katharine ([email or web address]) on 07/03/2024 2:47:21 PM MUSE SYSTEM 07/01/2024 5:24 PM EDT 07/03/2024 2:47 PM EDT Lizzette Hayden MD ECG ORDERABLES MUSE SYSTEM * CARDIAC CATHETERIZATION (07/01/2024 5:00 PM EDT) Anatomical Region Laterality Modality Other Narrative 07/01/2024 7:47 PM EDT ?[facility] ? Cardiac Catheterization/Intervention Report ? Patient Name: Brian Rodriguez. ? Procedure Date: 07/01/2024 ? A #: [id number] ? Primary Physician: Mogadam, Emad ? Case #: [id number] ? File Name: [id number] ? Catheterization Order Number: [id number] ? [facility] ? Final Report [place], [place] ? Patient Name: ? Brian M. Rodrigeuz ?ID#: ?[id number] ? : ?1950 ? Procedure Date: ? July 01, 2024 ? Case #: ? [id number] ? Room: ? 5 ? Case Physician: ? Emad Bernice Hayden. ? Start: ?15:10 ?Fellow: ? Waqar Vega M.D. ? Admission: ??06/30/2024 ?Elmo Byrd M.D. ? Referring Physician: ??Kenji Thomas M.D. ? Procedures: ?* Coronary Angiography ?* Left Heart Catheterization ?* Coronary Stent Insertion ?* Vascular Closure Device Deployment ?* Access Site Angiography ?* Vascular Ultrasound ? History ?Brian Rodriguez is a 74 year old man. [...] to Procedure: ? Aspirin, Angiotensin II Receptor Leo and Statin. ? Indications for Diagnostic Cath: ?The priority of the diagnostic procedure was Urgent. 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 A premounted 2.75 x 22 mm Rodo [place] (EILEEN) was deployed ? 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 ?Recommended anti-platelet/anti-thrombotic regimen: ?Continue aspirin 81 mg daily. ?Continue clopidogrel 75 mg daily. ?These recommendations are made at the time of the intervention. Patient ?and provider preferences or a changing clinical situation may require ?modification of this regimen. [place] [facility] [place]ventional [...] against any medical treatment. Consult ?http://tools.acc.org/DAPTriskapp/#!/content/calculator/ or [facility] [place] ?Interventional [...] ?vascular ultrasound and vascular closure device. ? Emad Mogadam, M.D. ? Report Finalized: 07/01/2024 ??19:41 ? Procedure Note Catrcaho, Emad, MD - 07/01/2024 [facility] Cardiac Catheterization/Intervention Report Patient Name: Brian Rodriguez Procedure Date: 07/01/2024 A #: [id number] Primary Physician: Lizzette Hayden Case #: [id number] File Name: [id number] Catheterization Order Number: [id number] [facility] FinalReport [place], [place] Patient Name: Brian Rodriguez ID#:[id number] :1950 Procedure Date: July 01, 2024 Case #: [id number] Room: 5 Case Physician: Lizzette Hayden M.D. Start: 15:10 Fellow: Waqar Vega M.D. Admission:06/30/2024 Elmo Byrd M.D. Referring Physician: Kenji Thomas M.D. Procedures: * Coronary Angiography * Left Heart Catheterization * Coronary Stent Insertion * Vascular Closure Device Deployment * Access Site Angiography * Vascular Ultrasound History Brian Rodriguez is a 74 year old man. [...] Class III. The[facility] clinical frailty scale is 4: Vulnerable. Diagnostic Tests: Medications Prior to Procedure: Aspirin, Angiotensin II Receptor Leo and Statin. Indications for Diagnostic Cath: The priority of the diagnostic procedure was Urgent. 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 [...] The lesion was predilated with a 2.50mm [id number] MM balloon with a maximum inflation pressure of 14atmospheres. 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 Recommended anti-platelet/anti-thrombotic regimen: Continue aspirin 81 mg daily. Continue clopidogrel 75 mg daily. These recommendations are made at the time of the intervention.Patient and provider preferences or a changing clinical situation mayrequire modification of this regimen. Consult [facility] [place] Interventional [...] or against any medical treatment.Consult http://tools.acc.org/DAPTriskapp/#!/content/calculator/ or [facility] [place] Interventional [...] Hayden MD CARDIAC CATH ORDERAB LES * POC, GLUCOSE (07/01/2024 11:35 AM EDT) Glucometer, POC 126 65 - 199 mg/dL 07/01/2024 11:35 AM EDT [facility] Comment:Supplemental ranges: <140 mg/dL before meals <180 mg/dL all other times of the day. Blood CAPILLARY BLOOD / Unknown 07/01/2024 11:35 AM EDT 07/01/2024 11:35 AM EDT Armond Denny MD POINT OF CARE TEST O RDERABLES [facility] [place] [address] * (ABNORMAL) Hemogram (07/01/2024 10:32 AM EDT) White Blood Cell 7.02 4.00 - 9.50 x10(3)/mc L 07/01/2024 11:20 AM EDT [facility] Red Blood Cell 3.68(L) 4.58 - 5.54 x10(6)/mc L 07/01/2024 11:20 AM EDT [facility] Hemoglobin 12.2(L) 13.7 - 16.5 g/dL 07/01/2024 11:20 AM [facility] Hematocrit 36.5(L) 40.5 - 48.5 % 07/01/2024 11:20 AM [facility] Mean Cell Volume 99.2(H) 82.9 - 93.1 fL 07/01/2024 11:20 AM [facility] Mean Cell Hemoglobin 33.2(H) 27.5 - 32.1 pg 07/01/2024 11:20 AM [facility] Mean Cell Hemoglobin Concentration 33.4 32.0 - 35.7 g/dL 07/01/2024 11:20 AM [facility] Platelet 167 145 - 357 x10(3)/mc L 07/01/2024 11:20 AM [facility] Mean Platelet Volume 11.4 7.6 - 12.9 fL 07/01/2024 11:20 AM [facility] RDW Standard Deviation 46.5(H) 36.0 - 45.0 fL 07/01/2024 11:20 AM [facility] RDW coefficient of variation 12.9 11.4 - 13.8 % 07/01/2024 11:20 AM [facility] NRBC% auto 0.0 % 07/01/2024 11:20 AM [facility] NRBC Absolute 0.00 0.00 - 0.00 x10(3)/mc L 07/01/2024 11:20 AM [facility] Blood VENOUS BLOOD SPECIMEN / Unknown IP Care Team Draw / Unknown 07/01/2024 10:32 AM EDT 07/01/2024 10:54 AM EDT Armond Denny MD HEMATOLOGY ORDERABLE S [facility] [place] [address] * Heparin (unfractionated) Level (07/01/2024 10:32 AM EDT) UF Heparin 0.31 IU/mL 07/01/2024 11:25 AM EDT [facility] Comment: Heparin (anti-Xa) levels should [...] EDT Triston Godinez MD HEMATOLOGY ORDERABLE S Performing Organization Address City/[facility]/ZIP Co de Phone Number [facility] [place] [address] * POC, GLUCOSE (07/01/2024 7:18 AM EDT) [facility] Glucometer, POC 105 65 - 199 mg/dL 07/01/2024 7:19 AM EDT [facility] Comment:Supplemental ranges: <140 mg/dL before meals <180 mg/dL all other times of the day. Blood CAPILLARY BLOOD / Unknown 07/01/2024 7:18 AM EDT 07/01/2024 7:19 AM EDT Triston Godinez MD POINT OF CARE TEST O RDERABLES Performing Organization Address City/[facility]/ZIP Co de Phone Number [facility] [place] [address] * Heparin (unfractionated) Level (07/01/2024 3:15 AM EDT) UF Heparin 0.36 IU/mL 07/01/2024 4:23 AM EDT [facility] Comment: Heparin (anti-Xa) levels should [...] indications in cardiac surgery): ? 0.1-0.3 IU/mL Specimen drawn more than one hour prior to testing. Results may not be reliable for heparin monitoring. Result may be falsely low. Blood VENOUS BLOOD SPECIMEN / Unknown IP Care Team Draw / Unknown 07/01/2024 3:15 AM EDT 07/01/2024 3:37 AM EDT Triston Godinez MD HEMATOLOGY ORDERABLE S [facility] [place] [address] * (ABNORMAL) CBC (with Diff) (07/01/2024 3:15 AM EDT) White Blood Cell 5.82 4.00 - 9.50 x10(3)/mc L 07/01/2024 3:54 AM EDT [facility] Red Blood Cell 3.60(L) 4.58 - 5.54 x10(6)/mc L 07/01/2024 3:54 AM EDT [facility] Hemoglobin 11.9(L) 13.7 - 16.5 g/dL 07/01/2024 3:54 AM [facility] Hematocrit 35.6(L) 40.5 - 48.5 % 07/01/2024 3:54 AM [facility] Mean Cell Volume 98.9(H) 82.9 - 93.1 fL 07/01/2024 3:54 AM [facility] Mean Cell Hemoglobin 33.1(H) 27.5 - 32.1 pg 07/01/2024 3:54 AM [facility] Mean Cell Hemoglobin Concentration 33.4 32.0 - 35.7 g/dL 07/01/2024 3:54 AM [facility] Platelet 169 145 - 357 x10(3)/mc L 07/01/2024 3:54 AM [facility] Mean Platelet Volume 11.6 7.6 - 12.9 fL 07/01/2024 3:54 AM [facility] RDW Standard Deviation 46.3(H) 36.0 - 45.0 fL 07/01/2024 3:54 AM [facility] RDW coefficient of variation 12.8 11.4 - 13.8 % 07/01/2024 3:54 AM [facility] NRBC% auto 0.0 % 07/01/2024 3:54 AM [facility] NRBC Absolute 0.00 0.00 - 0.00 x10(3)/mc L 07/01/2024 3:54 AM [facility] Neutrophil % 66.6 % 07/01/2024 3:54 AM [facility] Neutrophil Absolute 3.87 1.70 - 6.10 x10(3)/mc L 07/01/2024 3:54 AM [facility] Lymph % 20.4 % 07/01/2024 3:54 AM [facility] Lymph Absolute 1.19 0.90 - 3.20 x10(3)/mc L 07/01/2024 3:54 AM EDT [facility] Monocyte % 9.6 % 07/01/2024 3:54 AM EDT [facility] Monocyte Absolute 0.56 0.30 - 0.90 x10(3)/mc L 07/01/2024 3:54 AM EDT [facility] Eos % 2.6 % 07/01/2024 3:54 AM EDT [facility] Eos Absolute 0.15 0.00 - 0.40 x10(3)/mc L 07/01/2024 3:54 AM EDT [facility] Basophil % 0.5 % 07/01/2024 3:54 AM EDT [facility] Baso Absolute 0.03 0.00 - 0.10 x10(3)/mc L 07/01/2024 3:54 AM EDT [facility] Immature Gran % 0.3 % 3:54 AM EDT [facility] Immature Gran Absolute 0.02 0.00 - 0.04 x10(3)/mc L 07/01/2024 3:54 AM EDT [facility] Blood VENOUS BLOOD SPECIMEN / Unknown IP Care Team Draw / Unknown 07/01/2024 3:15 AM EDT 07/01/2024 3:37 AM EDT Triston Godinez MD HEMATOLOGY ORDERABLE S Performing Organization Address City/State/[facility] Co de Phone Number [facility] [place] [address] * Magnesium (06/30/2024 11:25 PM EDT) Magnesium 0.84 0.69 - 1.07 mMol/L 07/01/2024 12:14 AM EDT [facility] Blood VENOUS BLOOD SPECIMEN / Unknown IP Care Team Draw / Unknown 06/30/2024 11:25 PM EDT 06/30/2024 11:47 PM EDT Triston Godinez MD CHEMISTRY ORDERABLES [facility] [place] [address] * (ABNORMAL) Basic Metabolic Panel (06/30/2024 11:25 PM EDT) Glucose 145 65 - 199 mg/dL 07/01/2024 12:14 AM [facility] Comment:Glucose Concentratio n >=200 mg/dL plus symptoms is consistent with Diabetes Mellitus. Blood Urea Nitrogen 10 10 - 20 mg/dL 07/01/2024 12:14 AM [facility] Creatinine 1.02 0.80 - 1.50 mg/dL 07/01/2024 12:14 AM [facility] Sodium 141 135 - 145 mMol/L 07/01/2024 12:14 AM [facility] Potassium 3.4(L) 3.5 - 5.0 mMol/L 07/01/2024 12:14 AM [facility] Chloride 106 98 - 107 mMol/L 07/01/2024 12:14 AM [facility] Carbon Dioxide 25 22 - 31 mMol/L 07/01/2024 12:14 AM [facility] Anion Gap 10 5 - 15 mMol/L 07/01/2024 12:14 AM [facility] Calcium 9.2 8.5 - 10.5 mg/dL 07/01/2024 12:14 AM [facility] Est Glomerular Filtration Rate - Male 76 mL/min/1. 73 m?? 07/01/2024 12:14 AM [facility] Comment: This patient's estimated [...] eGFR. Link: eGFR Calculator [employer] Fasting Status 07/01/2024 12:14 AM EDT [facility] Blood VENOUS BLOOD SPECIMEN / Unknown IP Care Team Draw / Unknown 06/30/2024 11:25 PM EDT 06/30/2024 11:47 PM EDT Triston Godinez MD CHEMISTRY ORDERABLES [facility] [place] [address] * (ABNORMAL) Troponin-T, Yuriy Sensitivity 3 Hour (06/30/2024 11:25 PM EDT) [facility] Troponin-T, High Sensitivity 1,274(H) <=22 ng/L 07/01/2024 12:14 AM EDT [facility] Comment: This patient's troponin T [...] troponin value can be found in the [facility] Test Catalog Troponin - https://[facility]-.testcatalog.org/catalogs/565/files/84085 Reference: Fourth [place] Definition of Myocardial Infarction. Journal of the [employer] College [employer]iology 2018;72:9852-8542 Troponin-T, HS 3 hr delta 65 ng/L 07/01/2024 12:14 AM EDT [facility] Comment:The 3 hour Troponin T delta value is the absolute difference between the Troponin T concentrations of the initial and subsequent sample collected between 2 h: 45 min and 6 h following the initial collection Blood VENOUS BLOOD SPECIMEN / Unknown IP Care Team Draw / Unknown 06/30/2024 11:25 PM EDT 06/30/2024 11:47 PM EDT Triston Godinez MD CHEMISTRY ORDERABLES [facility] [place] [address] * (ABNORMAL) Troponin-T, High Sensitivity 1 Hour (06/30/2024 8:22 PM EDT) [facility] Troponin-T, High Sensitivity 1,234(H) <=22 ng/L 06/30/2024 9:22 PM EDT [facility] Comment: This patient's troponin T [...] troponin value can be found in the [facility] Test Catalog Troponin - https://[facility]-.testcatalog.org/catalogs/565/files/36369 Reference: Fourth [place] Definition of Myocardial Infarction. Journal of the [employer] College of Cardiology 2018;72:9443-2956 Troponin-T, HS 1 hr delta 06/30/2024 9:22 PM EDT [facility] Comment:Delta troponin value not calculated, sample collected outside of delta calculation time limit. Blood VENOUS BLOOD SPECIMEN / Unknown Venipuncture / Unknown 06/30/2024 8:22 PM EDT 06/30/2024 8:40 PM EDT Triston Godinez MD CHEMISTRY ORDERABLES Performing Organization Address [facility] Co de Phone Number [facility] [place] [address] * POC, GLUCOSE (06/30/2024 7:56 PM EDT) Glucometer, POC 144 65 - 199 mg/dL 06/30/2024 7:57 PM EDT [facility] Comment:Supplemental ranges: <140 mg/dL before meals <180 mg/dL all other times of the day. Blood CAPILLARY BLOOD / Unknown 06/30/2024 7:56 PM EDT 06/30/2024 7:57 PM EDT Triston Godinez MD POINT OF CARE TEST O RDERABLES Performing Organization Address [facility] Co de Phone Number [facility] [place] [address] * XR Abdomen Flat & Upright (06/30/2024 6:56 PM EDT) WORKSTATION ID [id number] RAD Anatomical Region Laterality Modality Abdomen N/A Digital Radiogra phy Impressions 06/30/2024 9:12 PM EDT No obstruction or perforation. Thank you for letting us participate in the care of this patient. ??If you are a health care provider and have any questions regarding this report, please contact the number below. ??For patients who have questions please contact the health respiratory care faculty that requested your imaging first. ? Electronically signed by: Shireen Hurtado MD, [facility] ([phone]), at 06/30/2024 9:12 PM Narrative 06/30/2024 9:12 [...] patients who have questions please contactthe health respiratory care faculty that requested your imaging first. Electronically signed by: Shireen Hurtado MD, [facility]([phone]), at 06/30/2024 9:12 PM Triston Godinez MD IMG DX ORDERABLES * (ABNORMAL) Troponin-T, High Sensitivity (06/30/2024 6:09 PM EDT) [facility] Troponin-T, High Sensitivity Initial 1,209([facility] ) <=22 ng/L 06/30/2024 7:23 PM EDT [facility] Comment: This patient's troponin T [...] troponin value can be found in the [facility] Test Catalog Troponin - https://one-.testcatalog.org/catalogs/565/[email or web address]/38159 Reference: Fourth [place] Definition of Myocardial Infarction. Journal of the [employer] College [employer]iology 2018;72:6766-8013 Blood VENOUS BLOOD SPECIMEN / Unknown Venipuncture / Unknown 06/30/2024 6:09 PM EDT 06/30/2024 6:18 PM EDT Triston Godinez MD CHEMISTRY ORDERABLES [facility] [place] [address] * (ABNORMAL) Basic Metabolic Panel (06/30/2024 6:09 PM EDT) Glucose 06/30/2024 8:08 PM EDT [facility] Comment:Insufficient sample. Informed Alli Vanasse at 20:07, 06.30.2024. Blood Urea Nitrogen 10 10 - 20 mg/dL 06/30/2024 8:08 PM EDT [facility] Creatinine 0.98 0.80 - 1.50 mg/dL 06/30/2024 8:08 PM EDT [facility] Sodium 140 135 - 145 mMol/L 06/30/2024 8:08 PM EDT [facility] Potassium 4.2 3.5 - 5.0 mMol/L 06/30/2024 8:08 PM EDT [facility] Chloride 105 98 - 107 mMol/L 06/30/2024 8:08 PM EDT [facility] Carbon Dioxide 21(L) 22 - 31 mMol/L 06/30/2024 8:08 PM EDT [facility] Anion Gap 14 5 - 15 mMol/L 06/30/2024 8:08 PM EDT [facility] Calcium 06/30/2024 8:08 PM EDT [facility] Comment:Insufficient sample. Informed Alli Susane at 20:07, 06.30.2024. Est Glomerular Filtration Rate - Male 80 mL/min/1. 73 m?? 06/30/2024 8:08 PM EDT [facility] Comment: This patient's estimated GFR [...] eGFR. Link: eGFR Calculator [employer] Fasting Status Yes 06/30/2024 8:08 PM EDT [facility] Blood VENOUS BLOOD SPECIMEN / Unknown Venipuncture / Unknown 06/30/2024 6:09 PM EDT 06/30/2024 6:18 PM EDT Triston Godinez MD CHEMISTRY ORDERABLES [facility] [place] [address] * Lipid Panel (Reflex Direct LDL) (06/30/2024 6:09 PM EDT) Cholesterol, Total 197 mg/dL 06/30/2024 6:51 PM T [facility] Comment: Desirable: < 200 mg/dL Borderline High: 200 - 239 mg/dL High: > or = 240 mg/dL Triglyceride 230 mg/dL 06/30/2024 6:51 PM T [facility] Comment: Normal: <150 mg/dL Borderline High: 150-199 mg/dL High: 200-499 mg/dL Very High: > or =500 mg/dL HDL Cholesterol 36 mg/dL 6:51 PM [facility] Comment:Males: High Risk: <4 0 mg/dL LDL Cholesterol 120 mg/dL 6:51 PM [facility] Comment: Desirable: <100 mg/dL Above Desirable: 100-129 mg/dL Borderline High: 130-159 mg/dL High: 160-189 mg/dL Very High: > or =190 mg/dL Note: LDL calculation updated to the NIH LDL formula as of 06/26/2024 Non-HDL Cholesterol 161 mg/dL 06/30/2024 6:51 PM [facility] Comment: Desirable: <130 mg/dL Above Desirable: 130-159 mg/dL Borderline High: 160-189 mg/dL High: 190-219 mg/dL Very High: > or = 220 mg/dL Blood VENOUS BLOOD SPECIMEN / Unknown Venipuncture / Unknown 06/30/2024 6:09 PM EDT 06/30/2024 6:18 PM EDT [facility] - 06/30/2024 6:51 PM EDT It [...] ACC/AHA Guidelines (most recently Brianne et al. JAC 08/26/22): * For individuals with atherosclerotic cardiovascular [...] artery disease) Triston Godinez MD [place] [address] * (ABNORMAL) pro-Brain Natriuretic Peptide (06/30/2024 6:09 PM EDT) Pathologist [facility] NT-proBNP 2,259(H) <=449 pg/mL 06/30/2024 6:51 PM EDT [facility] Blood VENOUS BLOOD SPECIMEN / Unknown Venipuncture / Unknown 06/30/2024 6:09 PM EDT 06/30/2024 6:18 PM EDT Triston Godinez MD CHEMISTRY ORDERABLES Performing Organization Address [facility] Co de Phone Number [facility] [place] [address] * TSH (06/30/2024 6:09 PM EDT) [facility] Thyroid Stimulating Hormone 2.80 0.27 - 4.20 mcIU/mL 06/30/2024 6:51 PM EDT [facility] Blood VENOUS BLOOD SPECIMEN / Unknown Venipuncture / Unknown 06/30/2024 6:09 PM EDT 06/30/2024 6:18 PM EDT Triston Godinez MD CHEMISTRY ORDERABLES Performing Organization Address [facility] Co de Phone Number [facility] [place] [address] * Heparin (unfractionated) Level (06/30/2024 6:08 PM EDT) [facility] UF Heparin 0.07 IU/mL 06/30/2024 6:34 PM EDT [facility] Comment: Heparin (anti-Xa) levels should [...] IU/mL Blood VENOUS BLOOD SPECIMEN / Unknown Venipuncture / Unknown 06/30/2024 6:08 PM EDT 06/30/2024 6:18 PM EDT Triston Godinez MD HEMATOLOGY ORDERABLE S [facility] [place] [address] * (ABNORMAL) CBC (with Diff) (06/30/2024 6:08 PM EDT) White Blood Cell 6.45 4.00 - 9.50 x10(3)/mc L 06/30/2024 6:36 PM EDT [facility] Red Blood Cell 3.78(L) 4.58 - 5.54 x10(6)/mc L 06/30/2024 6:36 PM EDT [facility] Hemoglobin 12.7(L) 13.7 - 16.5 g/dL 06/30/2024 6:36 PM EDT [facility] Hematocrit 38.0(L) 40.5 - 48.5 % 06/30/2024 6:36 PM EDT [facility] Mean Cell Volume 100.5(H) 82.9 - 93.1 fL 06/30/2024 6:36 PM EDT [facility] Mean Cell Hemoglobin 33.6(H) 27.5 - 32.1 pg 06/30/2024 6:36 PM EDT [facility] Mean Cell Hemoglobin Concentration 33.4 32.0 - 35.7 g/dL 06/30/2024 6:36 PM EDT [facility] Platelet 79(L) 145 - 357 x10(3)/mc L 06/30/2024 6:36 PM EDT [facility] Mean Platelet Volume 11.2 7.6 - 12.9 fL 06/30/2024 6:36 PM EDT [facility] RDW Standard Deviation 48.4(H) 36.0 - 45.0 fL 06/30/2024 6:[facility] RDW coefficient of variation 13.0 11.4 - 13.8 % 06/30/2024 6:[facility] NRBC% auto 0.0 % 06/30/2024 6:36 PM EDT [facility] NRBC Absolute 0.00 0.00 - 0.00 x10(3)/mc L 06/30/2024 6:36 PM EDT [facility] Neutrophil % 71.2 % 06/30/2024 6:[facility] Neutrophil Absolute 4.59 1.70 - 6.10 x10(3)/mc L 06/30/2024 6:36 PM EDT [facility] Lymph % 18.1 % 06/30/2024 6:36 PM EDT [facility] Lymph Absolute 1.17 0.90 - 3.20 x10(3)/mc L 06/30/2024 6:36 PM EDT [facility] Monocyte % 8.2 % 06/30/2024 6:36 PM EDT [facility] Monocyte Absolute 0.53 0.30 - 0.90 x10(3)/mc L 06/30/2024 6:36 PM EDT [facility] Eos % 1.7 % 06/30/2024 6:36 PM EDT [facility] Eos Absolute 0.11 0.00 - 0.40 x10(3)/mc L 06/30/2024 6:36 PM EDT [facility] Basophil % 0.6 % 06/30/2024 6:36 PM EDT [facility] Baso Absolute 0.04 0.00 - 0.10 x10(3)/mc L 06/30/2024 6:36 PM EDT [facility] Immature Gran % 0.2 % 6:36 PM EDT [facility] Immature Gran Absolute 0.01 0.00 - 0.04 x10(3)/mc L 06/30/2024 6:36 PM EDT [facility] Blood VENOUS BLOOD SPECIMEN / Unknown Venipuncture / Unknown 06/30/2024 6:08 PM EDT 06/30/2024 6:18 PM EDT Triston Godinez MD HEMATOLOGY ORDERABLE S [facility] [place] [address] * (ABNORMAL) Hemoglobin A1c (06/30/2024 6:08 PM EDT) Hemoglobin A1c 7.3(H) 4.3 - 5.6 % 06/30/2024 9:03 PM EDT [facility] Comment: Per ADA guidelines, without [...] red blood cell turnover may not be mortician supplies sales representative of glycemic control. Reference Interval: 4.3 - 5.6% 5.7 - 6.4%: Consistent with prediabetes >=6.5%: Consistent with diagnosis of diabetes mellitus Estimated Average Glucose 06/30/2024 9:03 PM EDT [facility] Comment:Not Calculated. Blood VENOUS BLOOD SPECIMEN / Unknown Venipuncture / Unknown 06/30/2024 6:08 PM EDT 06/30/2024 6:18 PM EDT Narrative [facility] - 06/30/2024 9:03 PM EDT Estimated average glucose (eAG) is calculated from the equation described in: John ELLISON, Inna Lo, Nic Wells, et al. ??Translating the A1C assay into estimated average glucose values. ??Diabetes Care 2008:31(8):6818-3638. Additional resources are available on the ADA website (diabetes.org). Triston Godinez MD CHEMISTRY ORDERABLES Performing Organization Address [facility] Co de Phone Number [facility] [place] [address] * POC, GLUCOSE (06/30/2024 5:58 PM EDT) [facility] Glucometer, POC 148 65 - 199 mg/dL 06/30/2024 5:58 PM EDT [facility] Comment:Supplemental ranges: <140 mg/dL before meals <180 mg/dL all other times of the day. Blood CAPILLARY BLOOD / Unknown 06/30/2024 5:58 PM EDT 06/30/2024 5:58 PM EDT Triston Godinez MD POINT OF CARE TEST O RDERABLES Performing Organization Address [facility] Co de Phone Number [facility] [place] [address] * EKG 12 Lead (06/30/2024 5:23 PM EDT) [facility] Ventricular rate 73 BPM MUSE SYSTEM Atrial Rate 300 BPM MUSE SYSTEM QRS Duration 72 ms MUSE SYSTEM Q-T Interval 404 ms MUSE SYSTEM QTC Calculated (Bezet) 445 ms MUSE SYSTEM Calculated P Minden 71 degrees MUSE SYSTEM Calculated R Minden 65 degrees MUSE SYSTEM Calculated T Minden 30 degrees MUSE SYSTEM INTERPRETATION Normal sinus rhythm Low voltage QRS Cannot rule out Septal infarct , age undetermined Abnormal ECG When compared with ECG of 30-JUN-2024 15:53, (unconfirmed) Right bundle branch block is no longer Present Septal infarct is now Present Confirmed by MD Arthur, Gutierrez Boyd ([id number]) on 07/01/2024 9:57:31 AM MUSE SYSTEM 06/30/2024 5:23 PM EDT 07/01/2024 9:57 AM EDT Triston Godinez MD ECG ORDERABLES MUSE SYSTEM * ECHO COMPLETE W CONTRAST (06/30/2024 5:22 PM EDT) Anatomical Region Laterality Modality Cardiac Other 06/30/2024 4:39 PM EDT Narrative 06/30/2024 9:26 PM EDT ? Version: 1 Name: BRIAN RODRIGUEZ ?Study Date: 06/30/2024, 4: 39 PM ?BP: 137 / 78 mmHg ?Patient Location: L3WB^374^A : 1950 (MM/DD/YYYY) ? Height: 193 cm ? Age: 74 Years ? Weight: 113 kg Gender: Male ?BSA: 2.43 m?? Ordering Physician: TRISTON GODINEZ Referring Physician: KENJI THOMAS Performed By: Carol Villarreal Reason For Study: NSTEMI (non-ST elevation myocardial infarction) Exam Location: [facility]. ? Conclusions -Left ventricular systolic function is moderately reduced. The left ventricular ejection fraction is 36% by Dowd's biplane. The anterolateral and inferolateral barahona are akinetic. The anterior wall is hypokinetic. -Right ventricle is mildly dilated. Systolic function is normal. -No significant valve disease. -See report for additional findings. No prior study is available. Procedure Complete-[id number]. Image enhancement Optison was used for left [...] Doppler ? 3D/Strain/ TomTec MV E max radha: 50.0 cm/sec MV A max radha: 96.2 cm/sec MV E/A: 0.52 Lat Peak E' Radha: 11.2 cm/sec E/ e' (lat): 4.5 Med Peak E' Radha: 7.0 cm/sec E/e' (med): 7.2 I ?WMSI [...] Godinez MD - 06/30/2024 Version: 1 Name: BRIAN RODRIGUEZ Toan Study Date: 06/30/2024,4: 39 PM BP: 137 / 78 mmHg Patient Location:L3WB^374^A : 1950 (MM/DD/YYYY) Height: 193 cm Age: 74 Years Weight: 113 kg Gender: Male BSA: 2.43 m?? Ordering Physician: TRISTON GODINEZ Referring Physician: KENJI THOMAS Performed By: Carol Villarreal Reason For Study: NSTEMI (non-ST elevation myocardial infarction) Exam Location: [facility]. Conclusions -Left ventricular systolic function is moderately reduced. The leftventricular ejection fraction is 36% by Dowd's biplane. The anterolateral andinferolateral barahona are akinetic. The anterior wall is hypokinetic. -Right ventricle is mildly dilated. Systolic function is normal. -No significant valve disease. -See report for additional findings. No prior study is available. Procedure Complete-[id number]. Image enhancement Optison was used for left [...] 34.8 Doppler 3D/Strain/ TomTec MV E max radha: 50.0 cm/sec MV A max radha: 96.2 cm/sec MV E/A: 0.52 Lat Peak E' Radha: 11.2 cm/sec E/ e' (lat): 4.5 Med Peak E' Radha: 7.0 cm/sec E/e' (med): 7.2 I WMSI = 1.69 % Normal = 50% X - 1 - 2 - 3 - 4 - 5 - Segments Size Cannot Interpret Normal Hypokinetic AkineticDyskinetic Aneurysmal 1-2 small 3-5 moderate 6-14 large 15-16 diffuse Electronically signed by: Triston Godinez MD 06/30/2024, 9: 26 PM Triston Godinez MD ECHO ORDERABLES * EKG 12 Lead (06/30/2024 3:53 PM EDT) Ventricular rate 69 BPM MUSE SYSTEM Atrial Rate 69 BPM MUSE SYSTEM P-R Interval 176 ms MUSE SYSTEM QRS Duration 138 ms MUSE SYSTEM Q-T Interval 430 ms MUSE SYSTEM QTC Calculated (Bezet) 460 ms MUSE SYSTEM Calculated P Minden 69 degrees MUSE SYSTEM Calculated R Minden 78 degrees MUSE SYSTEM Calculated T Minden 39 degrees MUSE SYSTEM INTERPRETATION Sinus rhythm Occasional Premature ventricular complexes Right bundle branch block Abnormal ECG No previous ECGs available Confirmed by MD Arthur, Gutierrez Boyd ([id number]) on 07/01/2024 9:55:31 AM MUSE SYSTEM 06/30/2024 3:53 PM EDT 07/01/2024 9:55 AM EDT Triston Godinez MD ECG ORDERABLES [employer] documented in this encounter Visit Diagnoses Not on filedocumented in this encounter Admitting Diagnoses Diagnosis NSTEMI (non-ST elevated myocardial infarction) Acute myocardial infarction, subendocardial infarction, episode of care unspecified documented in this encounter Administered Medications Inactive Administered Medications - up to 3 most recent administrations Medication Order MAR Action Action Date Dose Rate Site acetaminophen (Tylenol) tablet 650 mg 650 mg, Oral, EVERY 6 HOURS PRN, Starting on Tresa 06/30/24 at 1647, Until Thu07/04/24 at 1725, Pain, - Maximum dose of acetaminophen is 4,000 mg from all sources in 24 hours. - Unless otherwise specified, when ordered PRN for pain, acetaminophen should be given first if other PRN pain medications are ordered., Routine Given 07/01/2024 8:42 PM EDT 650 mg aspirin chewable tablet 81 mg 81 mg, Oral, DAILY, First dose on Thu07/01/24 at 0900, Until Discontinued, Routine Given 07/04/2024 8:36 AM EDT 81 mg Given 07/03/2024 8:24 AM EDT 81 mg Given 07/02/2024 8:08 AM EDT 81 mg atorvastatin (Lipitor) tablet 80 mg 80 mg, Oral, DAILY, First dose on Tresa 06/30/24 at 1615, Until Discontinued, Routine Given 07/04/2024 8:36 AM EDT 80 mg Given 07/03/2024 8:24 AM EDT 80 mg Given 07/02/2024 8:08 AM EDT 80 mg ciprofloxacin (Cipro) tablet 500 mg 500 mg, Oral, 2 TIMES DAILY, 13 doses, First dose (after last modification) on Thu07/04/24 at 2100, Last dose on Thu07/10/24 at 2100, Give this medication 2 hours BEFORE, or 6 hours AFTER products with multivalent cations (e.g. Calcium, Iron, Zinc, Magnesium, Aluminum). Do not coadminister, Routine, Indication for (Active or Suspected): Urinary Tract/Pyelonephritis clopidogreL (Plavix) tablet 75 mg 75 mg, Oral, DAILY, First dose on Thu07/01/24 at 0900, Until Discontinued, Routine Given 07/04/2024 8:36 AM EDT 75 mg Given 07/03/2024 8:24 AM EDT 75 mg Given 07/02/2024 8:08 AM EDT 75 mg dextrose 10% infusion 250 mL, at 1,000 mL/hr, Intravenous, EVERY 15 MIN PRN, Starting on Tresa 06/30/24 at 1630, Until Thu07/04/24 at 1725, For BG 50-70 mg/dL: Oral treatment preferred: If able to drink, give 120 mL juice or regular (not diet) soda OR if NPO, give 15 gram glucose 40% oral gel massaged into buccal mucosa OR if unconscious or uncooperative, give 25 gram (250 mL) dextrose 10% IV over 15 minutes per protocol OR, if no IV access, 1 mg glucagon IM. For BG less than 50 mg/dL: Oral treatment preferred: If able to drink, give 240 mL juice or regular (not diet) soda OR if NPO, give 30 gram glucose 40% oral gel massaged in buccal mucosa OR if unconscious or uncooperative, give 25 gram (250 mL) dextrose 10% IV over 15 minutes per protocol OR, if no IV access, 1 mg glucagon IM. Recheck BG in 15 minutes. May repeat juice/soda, gel, dextrose or glucagon once per episode. Notify provider if hypoglycemia does not resolve after two treatments. Providers should consider the following: administering longer-acting treatments for the duration of active insulin or hypoglycemia agent for persistent hypoglycemia and re-evaluating active insulin orders before administering the next dose. dicyclomine (Bentyl) capsule 20 mg 20 mg, Oral, 4 TIMES DAILY PRN, Starting on Tresa 06/30/24 at 1558, Until Thu07/04/24 at 1726, for stomach pain Given 07/01/2024 8:45 AM EDT 20 mg enoxaparin (Lovenox) (40 mg/0.4 mL) subcutaneous injection 40 mg 40 mg, Subcutaneous, NIGHTLY, First dose on Thu07/03/24 at 2100, Until Discontinued, Routine Given 07/03/2024 8:11 PM EDT 40 mg Left Lower Quadrant fentaNYL (pf) (50 mcg/mL) multi-dose injection PRN, Starting on Thu07/01/24 at 1459, Until Thu07/01/24 at 1829, Intra-Operative (Intra-Procedure), Routine Given 07/01/2024 4:52 PM EDT 25 mcg Given 07/01/2024 4:38 PM EDT 25 mcg Given 07/01/2024 4:36 PM EDT 25 mcg folic acid (Vitamin B9) tablet 1,000 mcg 1,000 mcg, Oral, DAILY, First dose on Thu06/30/24 at 1730, Until Discontinued, Routine Given 07/04/2024 8:36 AM EDT 1,000 mcg Given 07/03/2024 8:24 AM EDT 1,000 mcg Given 07/02/2024 8:09 AM EDT 1,000 mcg glucagon (Glucagen) (1 mg/mL) injection solution 1 mg 1 mg, Intramuscular, EVERY 15 MIN PRN, Starting on Thu06/30/24 at 1630, Until Thu07/04/24 at 1725, Low blood sugar, For BG 50-70 mg/dL: Oral treatment preferred: If able to drink, give 120 mL juice or regular (not diet) soda OR if NPO, give 15 gram glucose 40% oral gel massaged into buccal mucosa OR if unconscious or uncooperative, give 25 gram (250 mL) dextrose 10% IV over 15 minutes per protocol OR, if no IV access, 1 mg glucagon IM. For BG less than 50 mg/dL: Oral treatment preferred: If able to drink, give 240 mL juice or regular (not diet) soda OR if NPO, give 30 gram glucose 40% oral gel massaged in buccal mucosa OR if unconscious or uncooperative, give 25 gram (250 mL) dextrose 10% IV over 15 minutes per protocol OR, if no IV access, 1 mg glucagon IM. Recheck BG in 15 minutes. May repeat juice/soda, gel, dextrose or glucagon once per episode. Notify provider if hypoglycemia does not resolve after two treatments. Providers should consider the following: administering longer-acting treatments for the duration of active insulin or hypoglycemia agent for persistent hypoglycemia and re-evaluating active insulin orders before administering the next dose. , Routine glucose (Glutose) 40% oral geL 15-30 g of glucose, Buccal, EVERY 15 MIN PRN, Starting on Tresa 06/30/24 at 1630, Until 07/04/24 at 1725, Low blood sugar, For BG 50-70 mg/dL: Oral treatment preferred: If able to drink, give 120 mL juice or regular (not diet) soda OR if NPO, give 15 gram glucose 40% oral gel massaged into buccal mucosa OR if unconscious or uncooperative, give 25 gram (250 mL) dextrose 10% IV over 15 minutes per protocol OR, if no IV access, 1 mg glucagon IM. For BG less than 50 mg/dL: Oral treatment preferred: If able to drink, give 240 mL juice or regular (not diet) soda OR if NPO, give 30 gram glucose 40% oral gel massaged in buccal mucosa OR if unconscious or uncooperative, give 25 gram (250 mL) dextrose 10% IV over 15 minutes per protocol OR, if no IV access, 1 mg glucagon IM. Recheck BG in 15 minutes. May repeat juice/soda, gel, dextrose or glucagon once per episode. Notify provider if hypoglycemia does not resolve after two treatments. Providers should consider the following: administering longer-acting treatments for the duration of active insulin or hypoglycemia agent for persistent hypoglycemia and re-evaluating active insulin orders before administering the next dose. 1 tube of Glutose-15 contains 15 grams of glucose (net weight of tube = 37.5 grams.), Routine heparin (porcine) (1,000 units/mL) injection PRN, Starting on Thu07/01/24 at 1513, Until Thu07/01/24 at 1829, Intra-Operative (Intra-Procedure), Routine Given 07/01/2024 4:41 PM EDT 3,000 Units Given 07/01/2024 4:25 PM EDT 3,000 Units Given 07/01/2024 4:17 PM EDT 3,000 Units insulin glargine-ygfn (Semglee) (100 unit/mL) subcutaneous injection vial 70 Units 70 Units, Subcutaneous, NIGHTLY, First dose on Tresa 06/30/24 at 2100, Until Discontinued, Routine Given 07/03/2024 8:11 PM EDT 70 Units Left Arm Given 07/02/2024 8:46 PM EDT 70 Units Ri ght Arm Given 07/01/2024 10:20 PM EDT 70 Units R ight Arm insulin lispro (HumaLOG;Admelog) (100 unit/mL) subcutaneous injection vial 0-5 Units 0-5 Units, Subcutaneous, 3 TIMES DAILY WITH MEALS, First dose on 07/04/24 at 0800, Until Discontinued, MEAL ASS[employer]ATED Give 1 Unit to every 30 Carbs Hold if not eating or if BG less than 70 mg/dL., Routine Given 07/04/2024 1:05 PM EDT 1 Unit s Given 07/04/2024 8:37 AM EDT 1 Units insulin lispro (HumaLOG;Admelog) (100 unit/mL) subcutaneous injection vial 1-4 Units 1-4 Units, Subcutaneous, 3 TIMES DAILY BEFORE MEALS, First dose on Tresa 06/30/24 at 1700, Until Discontinued, CORRECTION BOLUS [1-4 Units] Sensitive Sliding Scale (BG in mg/dL): Correction factor 40 (1 unit of insulin is expected to drop the glucose 40 mg/dL) ?? BG 160 - 200 Give 1 unit BG 201 - 240 Give 2 units BG 241 - 280 Give 3 units and recheck BG in 2 hours. BG greater than 280, give 4 units and recheck BG in 2 hours. - If recheck BG is LESS than 280, give no insulin and resume schedule - If recheck BG is GREATER than or EQUAL to 280, give 4 units and repeat BG in 2 hours & call for new insulin orders. DO NOT hold if NPO, unless specifically told to do so. ?? Per Inpatient Subcutaneous Insulin Policy, recheck a BG of greater than 240 mg/dL in 2 hours., Routine Given 07/04/2024 11:55 AM EDT 4 Units Given 07/03/2024 5:06 PM EDT 2 Units Given 07/03/2024 11:23 AM EDT 1 Units iohexoL (Omnipaque) (350 mg/mL) solution PRN, Starting on Thu07/01/24 at 1658, Until Thu07/01/24 at 1829, Intra-Operative (Intra-Procedure), Routine Given 07/01/2024 4:58 PM EDT 200 mLs ipratropium-albuteroL (Duoneb) 0.5 mg-3 mg(2.5 mg base)/3 mL nebulizer solution 3 mL 3 mL, Nebulization, 4 TIMES DAILY PRN, Starting on Thu06/30/24 at 1630, Until Thu07/04/24 at 1725, Wheezing, Routine ketoconazole (Nizoral) 2 % cream Topical (Top), DAILY, First dose on Thu06/30/24 at 1645, Until Discontinued Given 07/02/2024 8:10 AM EDT Given 07/01/2024 9:23 AM EDT Given 06/30/2024 5:41 PM EDT losartan (Cozaar) tablet 100 mg 100 mg, Oral, DAILY, First dose on Thu06/30/24 at 1615, Until Discontinued, Routine Given 07/04/2024 9:00 AM EDT 100 mg Given 07/03/2024 8:24 AM EDT 100 mg Given 07/02/2024 8:09 AM EDT 100 mg metoprolol succinate XL (Toprol-XL) tablet 100 mg 100 mg, Oral, DAILY, First dose on Thu07/04/24 at 0900, Until Discontinued, DO NOT CRUSH OR OPEN, Routine Given 07/04/2024 8:37 AM EDT 100 mg midazolam (pf) (Versed) (1 mg/mL) multi-dose injection PRN, Starting on Thu07/01/24 at 1459, Until Thu07/01/24 at 1829, Intra-Operative (Intra-Procedure), Routine Given 07/01/2024 4:04 PM EDT 0.5 mg Given 07/01/2024 3:45 PM EDT 0.5 mg Given 07/01/2024 3:43 PM EDT 1 mg nitroGLYcerin 100 mcg/mL intracoronary dilution PRN, Starting on Thu07/01/24 at 1511, Until Thu07/01/24 at 1829, Intra-Operative (Intra-Procedure), Routine Given 07/01/2024 4:45 PM EDT 200 mcg Given 07/01/2024 3:11 PM EDT 150 mcg ondansetron (pf) (Zofran) (2 mg/mL) injection 4 mg 4 mg, Intravenous, EVERY 8 HOURS PRN, Starting on Thu07/01/24 at 0844, Until Thu07/04/24 at 1725, Nausea Given 07/01/2024 8:53 AM EDT 4 mg pantoprazole EC (Protonix) tablet 40 mg 40 mg, Oral, DAILY, First dose on Thu06/30/24 at 1615, Until Discontinued Given 07/04/2024 8:36 AM EDT 40 mg Given 07/03/2024 8:24 AM EDT 40 mg Given 07/02/2024 8:08 AM EDT 40 mg sodium chloride 0.9 % (flush) (BD PosiFlush Normal Saline 0.9) flush 5 mL 5 mL, Intravenous, 2 TIMES DAILY, First dose on Thu06/30/24 at 2100, Until Discontinued, Routine Given 07/04/2024 8:37 AM EDT 5 mLs Given 07/03/2024 8:12 PM EDT 5 mLs Given 07/03/2024 8:25 AM EDT 5 mLs sodium chloride 0.9% infusion CONTINUOUS PRN, Starting on Thu07/01/24 at 1529, Until Thu07/01/24 at 1829, Intra-Operative (Intra-Procedure) New Bag 07/01/2024 3:29 PM EDT 500 mLs spironolactone (Aldactone) tablet 12.5 mg 12.5 mg, Oral, DAILY, First dose on Thu07/02/24 at 1030, Until Discontinued, DO NOT SPLIT, CRUSH OR OPEN, Routine Given 07/04/2024 8:35 AM EDT 12.5 mg Given 07/03/2024 8:24 AM EDT 12.5 mg Given 07/02/2024 11:18 AM EDT 12.5 mg sulfaSALAzine (Azulfidine) tablet 1,500 mg 1,500 mg, Oral, 2 TIMES DAILY, First dose on Thu07/01/24 at 0300, Until Discontinued, Routine Given 07/04/2024 3:16 AM EDT 1,500 mg Given 07/03/2024 3:27 PM EDT 1,500 mg Given 07/03/2024 3:38 AM EDT 1,500 mg tamsulosin (Flomax) capsule 0.8 mg 0.8 mg, Oral, DAILY, First dose on Thu06/30/24 at 1615, Until Discontinued, DO NOT CRUSH OR CHEW, Routine Given 07/04/2024 8:36 AM EDT 0.8 mg Given 07/03/2024 8:24 AM EDT 0.8 mg Given 07/02/2024 8:09 AM EDT 0.8 mg verapamiL (Isoptin) (2.5 mg/mL) injection PRN, Starting on Thu07/01/24 at 1512, Until Thu07/01/24 at 1829, Administer over 2 Minutes, Intra-Operative (Intra-Procedure) Given 07/01/2024 3:12 PM EDT 2 .5 mg documented in this encounter Active and Recently Administered Medications Times are shown in EDT. Scheduled Medication Order 07/02/2024 07/03/2024 07/04/2024 aspirin chewable tablet 81 mg 81 mg, Oral, DAILY, First dose on Thu07/01/24 at 0900, Until Discontinued, Routine 0808 (Given - Provider: Sujata Duncan RN) 0824 (Given - Provider: Jenny Reddy RN) 0836 (Given - Provider: Jenny Reddy RN) atorvastatin (Lipitor) tablet 80 mg 80 mg, Oral, DAILY, First dose on Thu06/30/24 at 1615, Until Discontinued, Routine 0808 (Given - Provider: Sujata Duncan RN) 0824 (Given - Provider: Jenny Reddy RN) 0836 (Given - Provider: Jenny Reddy RN) cefTRIAXone (Rocephin) 1 g vial attach to sodium chloride 0.9% 50 mL Mini-Bag Plus (CANCELED) 1 g, Intravenous, EVERY 24 HOURS, 5 doses, First dose on Thu07/03/24 at 1730, Last dose on Thu07/07/24 at 1730, Administer over 30 Minutes, Indication for (Active or Suspected): Urinary Tract/Pyelonephritis 1729 (New Bag - Provider: Jenny Reddy RN)1759 (Stopped - Provider: Jenny Reddy RN) ciprofloxacin (Cipro) tablet 500 mg 500 mg, Oral, 2 TIMES DAILY, 13 doses, First dose (after last modification) on Thu07/04/24 at 2100, Last dose on Thu07/10/24 at 2100, Give this medication 2 hours BEFORE, or 6 hours AFTER products with multivalent cations (e.g. Calcium, Iron, Zinc, Magnesium, Aluminum). Do not coadminister, Routine, Indication for (Active or Suspected): Urinary Tract/Pyelonephritis clopidogreL (Plavix) tablet 75 mg 75 mg, Oral, DAILY, First dose on Thu07/01/24 at 0900, Until Discontinued, Routine 08 (Given - Provider: Sujata Duncan RN) 0824 (Given - Provider: Jenny Reddy RN) 0836 (Given - Provider: Jenny Reddy RN) enoxaparin (Lovenox) (40 mg/0.4 mL) subcutaneous injection 40 mg 40 mg, Subcutaneous, NIGHTLY, First dose on Thu07/03/24 at 2100, Until Discontinued, Routine 2010 (Given - Provider: Shea Shaver, RONY) folic acid (Vitamin B9) tablet 1,000 mcg 1,000 mcg, Oral, DAILY, First dose on Thu06/30/24 at 1730, Until Discontinued, Routine 808 (Given - Provider: Sujata Duncan RN) 08 (Given - Provider: Jenny Reddy RN) 0836 (Given - Provider: Jenny Reddy, RONY) insulin glargine-ygfn (Semglee) (100 unit/mL) subcutaneous injection vial 70 Units 70 Units, Subcutaneous, NIGHTLY, First dose on Thu06/30/24 at 2100, Until Discontinued, Routine 2045 (Given - Provider: Shea Shaver, RONY) 2010 (Given - Provider: Shea Shaver, RN) insulin lispro (HumaLOG;Admelog) (100 unit/mL) subcutaneous injection vial 0-5 Units 0-5 Units, Subcutaneous, 3 TIMES DAILY WITH MEALS, First dose on Thu07/04/24 at 0800, Until Discontinued, [employer] Give 1 Unit to every 30 Carbs Hold if not eating or if BG less than 70 mg/dL., Routine 08 (Given - Provider: Jenny Reddy RN)1305 (Given - Provider: Jenny Reddy, RONY) insulin lispro (HumaLOG;Admelog) (100 unit/mL) subcutaneous injection vial 1-4 Units(Linked Group 1) 1-4 Units, Subcutaneous, 3 TIMES DAILY BEFORE MEALS, First dose on Thu06/30/24 at 1700, Until Discontinued, CORRECTION BOLUS [1-4 Units] Sensitive Sliding Scale (BG in mg/dL): Correction factor 40 (1 unit of insulin is expected to drop the glucose 40 mg/dL) ?? BG 160 - 200 Give 1 unit BG 201 - 240 Give 2 units BG 241 - 280 Give 3 units and recheck BG in 2 hours. BG greater than 280, give 4 units and recheck BG in 2 hours. - If recheck BG is LESS than 280, give no insulin and resume schedule - If recheck BG is GREATER than or EQUAL to 280, give 4 units and repeat BG in 2 hours & call for new insulin orders. DO NOT hold if NPO, unless specifically told to do so. ?? Per Inpatient Subcutaneous Insulin Policy, recheck a BG of greater than 240 mg/dL in 2 hours., Routine 0808 (Given - Provider: Sujata Duncan, RONY)1121 (Given - Provider: Sujata Duncan, RONY)1619 (Given - Provider: Sujata Duncan, RONY) 0730 (Not Given - Provider: Jenny Reddy RN - Reason: Order parameters not met)1123 (Given - Provider: Jenny Reddy, RONY)1706 (Given - Provider: Jenny Reddy, RONY) 0730 (Not Given - Provider: Jenny Reddy RN - Reason: Order parameters not met)1155 (Given - Provider: Jenny Reddy RN) iohexoL (Omnipaque) radiology oral prep (50 mL of oral contrast) (COMPLETED)(Linked Group 2) 240 mL, Oral, ONCE, 1 dose, On 07/02/24 at 0045, Administer 8 ounce cup (240 ml) of diluted contrast mixture 2 hours before scan, as tolerated. *Take a 1 liter (1,000 mL) bottle of water or non-carbonated beverage, pour out 50 mL. *Open 1 bottle (50 mL) of Omnipaque 350 and pour into bottle of water or non-carbonated beverage. *Close cover and shake vigorously. Refrigerate if desired. *1 liter (1,000 mL) bottle of water or non-carbonated beverage mixed with 1 bottle (to mL) of Omnipaque 350 is now referred to as DILUTED CONTRAST MIXTURE, see above for administration instructions. *The patient should not eat food or drink any other liquids during the entire period in which they are drinking the contrast., Routine 0045 (Given - Provider: Shea Shaver RN) iohexoL (Omnipaque) radiology oral prep (50 mL of oral contrast) (COMPLETED)(Linked Group 2) 240 mL, Oral, ONCE, 1 dose, On 07/02/24 at 0145, Administer 8 ounce cup (240 ml) of diluted contrast mixture 1 hour before scan, as tolerated. *Take a 1 liter (1,000 mL) bottle of water or non-carbonated beverage, pour out 50 mL. *Open 1 bottle (50 mL) of Omnipaque 350 and pour into bottle of water or non-carbonated beverage. *Close cover and shake vigorously. Refrigerate if desired. *1 liter (1,000 mL) bottle of water or non-carbonated beverage mixed with 1 bottle (to mL) of Omnipaque 350 is now referred to as DILUTED CONTRAST MIXTURE, see above for administration instructions. *The patient should not eat food or drink any other liquids during the entire period in which they are drinking the contrast. , Routine 0130 (Given - Provider: Shea Shaver RN) iohexoL (Omnipaque) radiology oral prep (50 mL of oral contrast) (COMPLETED)(Linked Group 2) 240 mL, Oral, ONCE, 1 dose, On 07/02/24 at 0215, Administer 8 ounce cup (240 ml) of diluted contrast mixture 20 mins before scan, as tolerated. *Take a 1 liter (1,000 mL) bottle of water or non-carbonated beverage, pour out 50 mL. *Open 1 bottle (50 mL) of Omnipaque 350 and pour into bottle of water or non-carbonated beverage. *Close cover and shake vigorously. Refrigerate if desired. *1 liter (1,000 mL) bottle of water or non-carbonated beverage mixed with 1 bottle (to mL) of Omnipaque 350 is now referred to as DILUTED CONTRAST MIXTURE, see above for administration instructions. *The patient should not eat food or drink any other liquids during the entire period in which they are drinking the contrast., Routine 021 (Given - Provider: Shea Shaver RN) ketoconazole (Nizoral) 2 % cream Topical (Top), DAILY, First dose on Tresa 06/30/24 at 1645, Until Discontinued 0810 (Given - Provider: Sujata Duncan RN) 0900 (Hold - Provider: Jenny Reddy RN - Reason: Patient/family refused - Comment: not at this time) 0900 (Not Given - Provider: Jenny Reddy RN - Reason: Patient/family refused) losartan (Cozaar) tablet 100 mg 100 mg, Oral, DAILY, First dose on Tresa 06/30/24 at 1615, Until Discontinued, Routine 0809 (Given - Provider: Sujata Duncan RN) 0824 (Given - Provider: Jenny Reddy, RONY) 0900 (Given - Provider: Jenny Reddy, RN) magnesium sulfate 2 g in sterile water 50 mL infusion (COMPLETED) 2 g, Intravenous, ONCE, 1 dose, On Thu07/04/24 at 0800, Administer over 120 Minutes 0837 (New Bag - Provider: Jenny Reddy RN)1037 (Stopped - Provider: Jenny Reddy RN) metoprolol succinate XL (Toprol-XL) tablet 100 mg 100 mg, Oral, DAILY, First dose on Thu07/04/24 at 0900, Until Discontinued, DO NOT CRUSH OR OPEN, Routine 0837 (Given - Provider: Jenny Reddy RN) metoprolol tartrate (Lopressor) tablet 12.5 mg (CANCELED) 12.5 mg, Oral, EVERY 6 HOURS SCHEDULED, First dose on Thu07/02/24 at 1200, Until Discontinued, Routine 1118 (Given - Provider: Sujata Duncan RN)1733 (Given - Provider: Sujata Duncan RN) 0019 (Given - Provider: Shea Shaver RN)0549 (Given - Provider: Shea Shaver RN) metoproloL tartrate (Lopressor) tablet 25 mg (COMPLETED) 25 mg, Oral, EVERY 6 HOURS SCHEDULED, 3 doses, First dose (after last modification) on Thu07/03/24 at 1200, Last dose on Thu07/04/24 at 0000, Routine 1214 (Given - Provider: Jenny Reddy RN)1706 (Given - Provider: Jenny Reddy, RONY)2322 (Given - Provider: Shea Shaver RN) pantoprazole EC (Protonix) tablet 40 mg 40 mg, Oral, DAILY, First dose on Tresa 06/30/24 at 1615, Until Discontinued 0808 (Given - Provider: Sujata Duncan RN) 0824 (Given - Provider: Jenny Reddy RN) 0836 (Given - Provider: Jenny Reddy RN) potassium chloride ER (Klor-Con M) crystal tablet 40 mEq (COMPLETED) 40 mEq, Oral, ONCE, 1 dose, On Thu07/03/24 at 0730, potassium chloride ER particle/crystal tablets (Klor-Con M) may be broken in half and each half swallowed separately. Tablets can be dissolved in ~4 ounces of water; allow ~2 minutes to dissolve, stir well and drink immediately. Do not crush, chew, or suck on tablet., Routine 0824 (Given - Provider: Jenny Reddy RN) sodium chloride 0.9 % (flush) (BD PosiFlush Normal Saline 0.9) flush 5 mL 5 mL, Intravenous, 2 TIMES DAILY, First dose on Tresa 06/30/24 at 2100, Until Discontinued, Routine 0809 (Given - Provider: Sujata Duncan RN)2046 (Given - Provider: Shea Shaver RN) 0825 (Given - Provider: Jenny Reddy, RN)2011 (Given - Provider: Shea Shaver RN) 0837 (Given - Provider: Jenny Reddy, RONY) spironolactone (Aldactone) tablet 12.5 mg 12.5 mg, Oral, DAILY, First dose on Thu07/02/24 at 1030, Until Discontinued, DO NOT SPLIT, CRUSH OR OPEN, Routine 1118 (Given - Provider: Sujata Duncan RN) 0824 (Given - Provider: Jenny Reddy RN) 0835 (Given - Provider: Jenny Reddy, RONY) sulfaSALAzine (Azulfidine) tablet 1,500 mg 1,500 mg, Oral, 2 TIMES DAILY, First dose on Thu07/01/24 at 0300, Until Discontinued, Routine 0350 (Given - Provider: Shea Shaver RN)1621 (Given - Provider: Sujata Duncan RN) 0338 (Given - Provider: Shea Shaver RN)1527 (Given - Provider: Jenny Reddy RN) 0316 (Given - Provider: Shea Shaver RN)1500 (Due - Provider: Iram De Jesus [facility]) tamsulosin (Flomax) capsule 0.8 mg 0.8 mg, Oral, DAILY, First dose on Tresa 06/30/24 at 1615, Until Discontinued, DO NOT CRUSH OR CHEW, Routine 0809 (Given - Provider: Sujata Duncan RN) 0824 (Given - Provider: Jenny Reddy RN) 0836 (Given - Provider: Jenny Reddy RN) PRN Medication Order 07/02/2024 07/03/2024 07/04/2024 acetaminophen (Tylenol) tablet 650 mg 650 mg, Oral, EVERY 6 HOURS PRN, Starting on Tresa 06/30/24 at 1647, Until Thu07/04/24 at 1725, Pain, - Maximum dose of acetaminophen is 4,000 mg from all sources in 24 hours. - Unless otherwise specified, when ordered PRN for pain, acetaminophen should be given first if other PRN pain medications are ordered., Routine dextrose 10% infusion(Linked Group 3) 250 mL, at 1,000 mL/hr, Intravenous, EVERY 15 MIN PRN, Starting on Tresa 06/30/24 at 1630, Until Thu07/04/24 at 1725, For BG 50-70 mg/dL: Oral treatment preferred: If able to drink, give 120 mL juice or regular (not diet) soda OR if NPO, give 15 gram glucose 40% oral gel massaged into buccal mucosa OR if unconscious or uncooperative, give 25 gram (250 mL) dextrose 10% IV over 15 minutes per protocol OR, if no IV access, 1 mg glucagon IM. For BG less than 50 mg/dL: Oral treatment preferred: If able to drink, give 240 mL juice or regular (not diet) soda OR if NPO, give 30 gram glucose 40% oral gel massaged in buccal mucosa OR if unconscious or uncooperative, give 25 gram (250 mL) dextrose 10% IV over 15 minutes per protocol OR, if no IV access, 1 mg glucagon IM. Recheck BG in 15 minutes. May repeat juice/soda, gel, dextrose or glucagon once per episode. Notify provider if hypoglycemia does not resolve after two treatments. Providers should consider the following: administering longer-acting treatments for the duration of active insulin or hypoglycemia agent for persistent hypoglycemia and re-evaluating active insulin orders before administering the next dose. dicyclomine (Bentyl) capsule 20 mg 20 mg, Oral, 4 TIMES DAILY PRN, Starting on Thu06/30/24 at 1558, Until Thu07/04/24 at 1726, for stomach pain glucagon (Glucagen) (1 mg/mL) injection solution 1 mg(Linked Group 3) 1 mg, Intramuscular, EVERY 15 MIN PRN, Starting on Thu06/30/24 at 1630, Until Thu07/04/24 at 1725, Low blood sugar, For BG 50-70 mg/dL: Oral treatment preferred: If able to drink, give 120 mL juice or regular (not diet) soda OR if NPO, give 15 gram glucose 40% oral gel massaged into buccal mucosa OR if unconscious or uncooperative, give 25 gram (250 mL) dextrose 10% IV over 15 minutes per protocol OR, if no IV access, 1 mg glucagon IM. For BG less than 50 mg/dL: Oral treatment preferred: If able to drink, give 240 mL juice or regular (not diet) soda OR if NPO, give 30 gram glucose 40% oral gel massaged in buccal mucosa OR if unconscious or uncooperative, give 25 gram (250 mL) dextrose 10% IV over 15 minutes per protocol OR, if no IV access, 1 mg glucagon IM. Recheck BG in 15 minutes. May repeat juice/soda, gel, dextrose or glucagon once per episode. Notify provider if hypoglycemia does not resolve after two treatments. Providers should consider the following: administering longer-acting treatments for the duration of active insulin or hypoglycemia agent for persistent hypoglycemia and re-evaluating active insulin orders before administering the next dose. , Routine glucose (Glutose) 40% oral geL(Linked Group 3) 15-30 g of glucose, Buccal, EVERY 15 MIN PRN, Starting on Thu06/30/24 at 1630, Until Thu07/04/24 at 1725, Low blood sugar, For BG 50-70 mg/dL: Oral treatment preferred: If able to drink, give 120 mL juice or regular (not diet) soda OR if NPO, give 15 gram glucose 40% oral gel massaged into buccal mucosa OR if unconscious or uncooperative, give 25 gram (250 mL) dextrose 10% IV over 15 minutes per protocol OR, if no IV access, 1 mg glucagon IM. For BG less than 50 mg/dL: Oral treatment preferred: If able to drink, give 240 mL juice or regular (not diet) soda OR if NPO, give 30 gram glucose 40% oral gel massaged in buccal mucosa OR if unconscious or uncooperative, give 25 gram (250 mL) dextrose 10% IV over 15 minutes per protocol OR, if no IV access, 1 mg glucagon IM. Recheck BG in 15 minutes. May repeat juice/soda, gel, dextrose or glucagon once per episode. Notify provider if hypoglycemia does not resolve after two treatments. Providers should consider the following: administering longer-acting treatments for the duration of active insulin or hypoglycemia agent for persistent hypoglycemia and re-evaluating active insulin orders before administering the next dose. 1 tube of Glutose-15 contains 15 grams of glucose (net weight of tube = 37.5 grams.), Routine iohexoL (Omnipaque) (350 mg/mL) solution 0-200 mL (COMPLETED) 0-200 mL, Intravenous, ONCE PRN, 1 dose, Starting on 07/02/24 at 0314, Until 07/02/24 at 0314, Per Protocol, Warning Vesicant/Irritant Medication , Radiology Contrast, Routine 0314 (Given - Provider: Caron Reyes - Comment: 20g LAC) ipratropium-albuteroL (Duoneb) 0.5 mg-3 mg(2.5 mg base)/3 mL nebulizer solution 3 mL 3 mL, Nebulization, 4 TIMES DAILY PRN, Starting on Tresa 06/30/24 at 1630, Until Thu07/04/24 at 1725, Wheezing, Routine lidocaine (Xylocaine) 1% (10 mg/mL) injection 3 mg 3 mg (0.3 mL), Subcutaneous, ONCE PRN, 1 dose, Starting on Tresa 06/30/24 at 1558, Until Thu07/04/24 at 1725, for discomfort with PIV insertion, Routine nitroGLYcerin (Nitrostat) disintegrating tablet 0.4 mg 0.4 mg, Sublingual, EVERY 5 MIN PRN, Starting on Tresa 06/30/24 at 1558, Until Thu07/04/24 at 1725, Chest pain, May repeat every 5 minutes for a total of three doses. Notify provider if chest pain not relieved with nitroGLYcerin. Do not administer nitroGLYcerin if the patient has received or taken phosphodiesterase (PDE-5) inhibitors such as sildenafiL, tadalafiL or vardenafiL within the last 24 to 72 hours., Routine ondansetron (pf) (Zofran) (2 mg/mL) injection 4 mg 4 mg, Intravenous, EVERY 8 HOURS PRN, Starting on Thu07/01/24 at 0844, Until Thu07/04/24 at 1725, Nausea sodium chloride 0.9 % (flush) (BD PosiFlush Normal Saline 0.9) flush 5-20 mL 5-20 mL, Intravenous, EVERY 1 MIN PRN, Starting on Thu06/30/24 at 1558, Until Thu07/04/24 at 1725, flush, Flush pertains to all indwelling lines. Flush per protocol found in the job aid using the link provided on this medication record., Routine Linked Groups Order Group 1: POCT Fingerstick Glucose (CANCELED) Routine, 4 TIMES DAILY BEFORE MEALS & AT BEDTIME, First occurrence on Thu06/30/24 at 1700, Until Specified, Consider choosing FOUR TIMES A DAY BEFORE MEALS AND AT BEDTIME as frequency for: Patients who have good hypoglycemia awareness: -Patients who are eating meals during the day and sleeping at night -Patients who are otherwise stable And insulin lispro (HumaLOG;Admelog) (100 unit/mL) subcutaneous injection vial 1-4 UnitsJump to med 1-4 Units, Subcutaneous, 3 TIMES DAILY BEFORE MEALS, First dose on Thu06/30/24 at 1700, Until Discontinued, CORRECTION BOLUS [1-4 Units] Sensitive Sliding Scale (BG in mg/dL): Correction factor 40 (1 unit of insulin is expected to drop the glucose 40 mg/dL) ?? BG 160 - 200 Give 1 unit BG 201 - 240 Give 2 units BG 241 - 280 Give 3 units and recheck BG in 2 hours. BG greater than 280, give 4 units and recheck BG in 2 hours. - If recheck BG is LESS than 280, give no insulin and resume schedule - If recheck BG is GREATER than or EQUAL to 280, give 4 units and repeat BG in 2 hours & call for new insulin orders. DO NOT hold if NPO, unless specifically told to do so. ?? Per Inpatient Subcutaneous Insulin Policy, recheck a BG of greater than 240 mg/dL in 2 hours., Routine Group 2: iohexoL (Omnipaque) radiology oral prep (50 mL of oral contrast) (COMPLETED) 240 mL, Oral, ONCE, 1 dose, On 07/01/24 at 2345, Administer 8 ounce cup (240 ml) of diluted contrast mixture 3 hours before scan, as tolerated. *Take a 1 liter (1,000 mL) bottle of water or non-carbonated beverage, pour out 50 mL. *Open 1 bottle (50 mL) of Omnipaque 350 and pour into bottle of water or non-carbonated beverage. *Close cover and shake vigorously. Refrigerate if desired. *1 liter (1,000 mL) bottle of water or non-carbonated beverage mixed with 1 bottle (to mL) of Omnipaque 350 is now referred to as DILUTED CONTRAST MIXTURE, see above for administration instructions. *The patient should not eat food or drink any other liquids during the entire period in which they are drinking the contrast., Routine Followed by iohexoL (Omnipaque) radiology oral prep (50 mL of oral contrast) (COMPLETED)Jump to med 240 mL, Oral, ONCE, 1 dose, On Thu07/02/24 at 0045, Administer 8 ounce cup (240 ml) of diluted contrast mixture 2 hours before scan, as tolerated. *Take a 1 liter (1,000 mL) bottle of water or non-carbonated beverage, pour out 50 mL. *Open 1 bottle (50 mL) of Omnipaque 350 and pour into bottle of water or non-carbonated beverage. *Close cover and shake vigorously. Refrigerate if desired. *1 liter (1,000 mL) bottle of water or non-carbonated beverage mixed with 1 bottle (to mL) of Omnipaque 350 is now referred to as DILUTED CONTRAST MIXTURE, see above for administration instructions. *The patient should not eat food or drink any other liquids during the entire period in which they are drinking the contrast., Routine Followed by iohexoL (Omnipaque) radiology oral prep (50 mL of oral contrast) (COMPLETED)Jump to med 240 mL, Oral, ONCE, 1 dose, On 07/02/24 at 0145, Administer 8 ounce cup (240 ml) of diluted contrast mixture 1 hour before scan, as tolerated. *Take a 1 liter (1,000 mL) bottle of water or non-carbonated beverage, pour out 50 mL. *Open 1 bottle (50 mL) of Omnipaque 350 and pour into bottle of water or non-carbonated beverage. *Close cover and shake vigorously. Refrigerate if desired. *1 liter (1,000 mL) bottle of water or non-carbonated beverage mixed with 1 bottle (to mL) of Omnipaque 350 is now referred to as DILUTED CONTRAST MIXTURE, see above for administration instructions. *The patient should not eat food or drink any other liquids during the entire period in which they are drinking the contrast. , Routine Followed by iohexoL (Omnipaque) radiology oral prep (50 mL of oral contrast) (COMPLETED)Jump to med 240 mL, Oral, ONCE, 1 dose, On 07/02/24 at 0215, Administer 8 ounce cup (240 ml) of diluted contrast mixture 20 mins before scan, as tolerated. *Take a 1 liter (1,000 mL) bottle of water or non-carbonated beverage, pour out 50 mL. *Open 1 bottle (50 mL) of Omnipaque 350 and pour into bottle of water or non-carbonated beverage. *Close cover and shake vigorously. Refrigerate if desired. *1 liter (1,000 mL) bottle of water or non-carbonated beverage mixed with 1 bottle (to mL) of Omnipaque 350 is now referred to as DILUTED CONTRAST MIXTURE, see above for administration instructions. *The patient should not eat food or drink any other liquids during the entire period in which they are drinking the contrast., Routine Group 3: glucose (Glutose) 40% oral geLJump to med 15-30 g of glucose, Buccal, EVERY 15 MIN PRN, Starting on Tresa 06/30/24 at 1630, Until 07/04/24 at 1725, Low blood sugar, For BG 50-70 mg/dL: Oral treatment preferred: If able to drink, give 120 mL juice or regular (not diet) soda OR if NPO, give 15 gram glucose 40% oral gel massaged into buccal mucosa OR if unconscious or uncooperative, give 25 gram (250 mL) dextrose 10% IV over 15 minutes per protocol OR, if no IV access, 1 mg glucagon IM. For BG less than 50 mg/dL: Oral treatment preferred: If able to drink, give 240 mL juice or regular (not diet) soda OR if NPO, give 30 gram glucose 40% oral gel massaged in buccal mucosa OR if unconscious or uncooperative, give 25 gram (250 mL) dextrose 10% IV over 15 minutes per protocol OR, if no IV access, 1 mg glucagon IM. Recheck BG in 15 minutes. May repeat juice/soda, gel, dextrose or glucagon once per episode. Notify provider if hypoglycemia does not resolve after two treatments. Providers should consider the following: administering longer-acting treatments for the duration of active insulin or hypoglycemia agent for persistent hypoglycemia and re-evaluating active insulin orders before administering the next dose. 1 tube of Glutose-15 contains 15 grams of glucose (net weight of tube = 37.5 grams.), Routine Or dextrose 10% infusionJump to med 250 mL, at 1,000 mL/hr, Intravenous, EVERY 15 MIN PRN, Starting on Tresa 06/30/24 at 1630, Until 07/04/24 at 1725, For BG 50-70 mg/dL: Oral treatment preferred: If able to drink, give 120 mL juice or regular (not diet) soda OR if NPO, give 15 gram glucose 40% oral gel massaged into buccal mucosa OR if unconscious or uncooperative, give 25 gram (250 mL) dextrose 10% IV over 15 minutes per protocol OR, if no IV access, 1 mg glucagon IM. For BG less than 50 mg/dL: Oral treatment preferred: If able to drink, give 240 mL juice or regular (not diet) soda OR if NPO, give 30 gram glucose 40% oral gel massaged in buccal mucosa OR if unconscious or uncooperative, give 25 gram (250 mL) dextrose 10% IV over 15 minutes per protocol OR, if no IV access, 1 mg glucagon IM. Recheck BG in 15 minutes. May repeat juice/soda, gel, dextrose or glucagon once per episode. Notify provider if hypoglycemia does not resolve after two treatments. Providers should consider the following: administering longer-acting treatments for the duration of active insulin or hypoglycemia agent for persistent hypoglycemia and re-evaluating active insulin orders before administering the next dose. Or glucagon (Glucagen) (1 mg/mL) injection solution 1 mgJump to med 1 mg, Intramuscular, EVERY 15 MIN PRN, Starting on Tresa 06/30/24 at 1630, Until 07/04/24 at 1725, Low blood sugar, For BG 50-70 mg/dL: Oral treatment preferred: If able to drink, give 120 mL juice or regular (not diet) soda OR if NPO, give 15 gram glucose 40% oral gel massaged into buccal mucosa OR if unconscious or uncooperative, give 25 gram (250 mL) dextrose 10% IV over 15 minutes per protocol OR, if no IV access, 1 mg glucagon IM. For BG less than 50 mg/dL: Oral treatment preferred: If able to drink, give 240 mL juice or regular (not diet) soda OR if NPO, give 30 gram glucose 40% oral gel massaged in buccal mucosa OR if unconscious or uncooperative, give 25 gram (250 mL) dextrose 10% IV over 15 minutes per protocol OR, if no IV access, 1 mg glucagon IM. Recheck BG in 15 minutes. May repeat juice/soda, gel, dextrose or glucagon once per episode. Notify provider if hypoglycemia does not resolve after two treatments. Providers should consider the following: administering longer-acting treatments for the duration of active insulin or hypoglycemia agent for persistent hypoglycemia and re-evaluating active insulin orders before administering the next dose. , Routine documented in this encounter Care Teams Returns Processor Relationship Specialty Start Date End Date Deacon Watters APRN [address] [place] [address] [address] [place] [address] PCP - General Family Medicine 02/17/22 documented as of this encounter
--- OUTSIDE RECORDS SUMMARY | 2024-07-11 11:12 | XMS_ITS | Encounter Summary ---
Author Organization [facility] Address [facility] [place] [address] Care Team Providers Care Comic Illustrator Name Role Phone Deacon Watters APRN Primary Care Provider [phone]- [phone] Reason for Referral * Consultation (Routine) - Authorized Specialty Diagnoses / Procedures Referred By Contac t Referred To Contact Cardiology Diagnoses NSTEMI (non-ST elevated myocardial infarction) Ronel Hensley MD [facility] NEUROLOGY [place] [address] [facility] Cardiology [address] [place] [phone] Referral ID Status Reason Start Date Expiration Date Visits Requested Visits Authorized [id number] Authorized Consult, Test & Treat 07/04/2024 07/04/2025 1 1 * Consultation (Routine) - Authorized Specialty Diagnoses / Procedures Referred By Contac t Referred To Contact Cardiology Diagnoses NSTEMI (non-ST elevated myocardial infarction) Armond Denny MD [facility] [place] [address] Cardiac Rehab, [facility] [address] [place] [address] [place] [address] Referral ID Status Reason Start Date Expiration Date Visits Requested Visits Authorized [id number] Authorized Consult, Test & Treat 07/04/2024 12/31/2024 36 36 Reason for Visit * Auth/Cert (Routine) Specialty Diagnoses / Procedures Referred By Contac t Referred To Contact Diagnoses NSTEMI (non-ST elevated myocardial infarction) NSTEMI Triston Godinez MD [facility] [place] [address] [facility] Referral ID Status Reason Start Date Expiration Date Visits Re quested Visits Authorized [id number] 1 1 Encounter Details Date Type Department Care Team (Latest Contact Info) Description 06/30/2024 3:44 PM EDT - 07/04/2024 3:25 PM EDT Hospital Encounter Heart and Vascular Unit Level 3 Wing B at [place] [phone] Triston Godinez MD [facility] [address] [place] [address] Armond Denny MD [facility] [address] [place] [address] NSTEMI (non-ST elevated myocardial infarction) (Primary Dx) Discharge Disposition: Home Social History Tobacco Use Types Packs/Day Years Used Date Smoking Tobacco: Former Cigarettes 4 30 1 12/01/1961 - 10/01/1992 Smokeless Tobacco: Former Chew Comments:Denies vaping Alcohol Use Standard Drinks/Week Comments Yes 0 (1 standard drink = 0.6 oz pur e alcohol) twice a year [facility] Utilities Answer Date Recorded In the past 12 months has [employer] electric, gas, oil, or water company threatened [...] any time in the past 12 m [facility], were you homeless or living in a detention (including now)? No 07/01/2024 DH IPV Inpatient [...] HLD, migraines, DM2, and UC who [facility] and was transferred to [facility] for NSTEMI found to have HFrEF. Course [...] He was discharged with 6 days of [id number] mg BID after receiving 1 day of [...] Jardiance allergy. PCP Contact Information: Deacon Watters, RUBBER STAMP DIE INSPECTOR [address] / [facility] [place] [id number] Discharge Diagnoses (Hospital Problems) and Secondary Diagnoses [...] #HTN #HLD Mr. Rodriguez was transferred to [facility] for NSTEMI with trops of 4143 and 20,000 at the OSH, where he was loaded with ASA, plavix and started on heparin gtt. At [facility], his trops trended down to 1234. In [...] dose. Would consider changes to his regimen senior care to reduce the A1c. #GERD He takes [...] and Lab Data: Discharge Labs: Recent Labs 07/04/2414207/03/24 0402 07/02/24 0712 07/01/24 1032 07/01/24 0315 WBC 5.05 5.90 5.99 7.02 5.82 HGB 10.5* 11.0* 11.3* 12.2* 11.9* PLATELET 145 156 155 167 169 Recent Labs 07/04/24 01407/03/24 0402 07/02/24 0712 06/30/24 2325 06/30/24 1809 NA 141 138 136 141 140 K 3.9 3.6 3.6 3.4* 4.2 CL 108* 105 104 106 105 CO2 22 22 24 25 21* BUN 12 15 13 10 10 CREATININE 1.27 1.25 1.18 1.02 0.98 GLUCOSE 156 146 161 145 -- Recent Labs 07/04/2414207/03/24 0402 07/02/24 0712 CALCIUM 9.4 9.2 8.8 [...] to exclude urinary tract infection. Cardiac Catheterization: ([facility]) RIGHT dominance LVEDP 10 Artery Lesion Intervention [...] mouth daily. 10 mg Refills: 0 Insulin Paco Scott U-100 100 unit/mL (3 mL) pen Inject [...] 9:00 AM Dion Osullivan MD Gastroenterology at [facility] Arrive at: Welfare Analyst Area [phone] 09/01/2024 11:20 AM Gómez Mercer MD Dermatology at [facility] Arrive at: Welfare Analyst [address] [phone] 09/21/2024 2:45 PM Trung Hoyos MD Pain and Spine Center at [facility] Arrive at: Welfare Analyst Area [phone] Future Orders Complete By Expires Referral to Cardiac Rehab [[id number] Custom] As directed Process Instructions: If no progress note charted, please enter Clinical details in comments. Scheduling Instructions: Questions: My question or request is: NSTEMI, PCI, HFrEF- cardiac rehab at [facility] Referral to Cardiology [REF12 Custom] As directed Process Instructions: If no progress note charted, please enter Clinical details in comments. Scheduling Instructions: Questions: My question or request is: NEW PATIENT - hospital follow up for NSTEMI s/p PCI to LCx and new HFrEF, does not have appt on dishcarge please call him with appt slot General [...] appointments: During 8am-5pm Thursday through Thursday call [phone] to speak with a nurse in the cardiology clinic All other times call [phone] and ask to speak to the parking enforcer secondary school registrar. Home oxygen therapy: none Arrangements for VNA/home care: none Follow up Appointments: Future Appointments Date Time Provider Department Center 08/15/2024 9:00 AM Dion Osullivan MD [facility] 09/01/2024 11:20 AM Gómez Mercer MD [facility] 09/21/2024 2:45 PM Trung Hoyos MD [facility] Pain Sp [facility] Converter Supervisor: [facility] - referral sent and they are aware you need an appointment. If they do not reach out to you with an appointment in 1 week, call and ask for the cardiology clinic. PCP: Deacon Watters APRN at [phone] on July 08 at 4 PM Your Inpatient Doctor(s) at [facility]: Armond Denny MD - Attending physician Your Primary Care Provider: Deacon Watters APRN [address] / [facility] [id number] If you have non-emergent questions between now and the time of your follow up appointments: During 8am-5pm Thursday through Thursday call [phone] to speak with a nurse in the cardiology clinic All other times call [phone] and ask to speak to the parking enforcer secondary school registrar. Provider Contact Information: Deacon Watters APRN [address] / [facility] [id number] Discharge References/Attachments: Discharge References/Attachments None For questions regarding this document or issues relating to this hospitalization on the Medical Service, please contact your inpatient physician through the [facility] State Director . Issues afterhours and on weekends will be handled by the Converter Supervisor staff on-call. Signed: Ronel Hensley MD Internal [...] appointments: During 8am-5pm Thursday through Thursday call [phone] to speak with a nurse in the cardiology clinic All other times call [phone] and ask to speak to the parking enforcer secondary school registrar. Home oxygen therapy: none Arrangements for VNA/home care: none Follow up Appointments: Future Appointments Date Time Provider Department Center 08/15/2024 9:00 AM Dion Osullivan MD [facility] GASTRO [facility] 09/01/2024 11:20 AM Gómez Mercer MD [facility] 09/21/2024 2:45 PM Trung Hoyos MD [facility] Pain Sp [facility] Converter Supervisor: [facility] - referral sent and they are aware you need an appointment. If they do not reach out to you with an appointment in 1 week, call and ask for the cardiology clinic. PCP: Deacon Watters APRN at [phone] on July 08 at 4 PM Your Inpatient Doctor(s) at [facility]: Armond Denny MD - Attending physician Your Primary Care Provider: Deacon Watters APRN [address] [facility] / [facility] [place] [id number] If you have non-emergent questions between now and the time of your follow up appointments: During 8am-5pm Thursday through Thursday call [phone] to speak with a nurse in the cardiology clinic All other times call [phone] and ask to speak to the parking enforcer secondary school registrar. documented in this encounter Medications at Time [...] as needed for Wheezing. Use with spacer PACO SCOTT U-100 INSULIN 100 unit/mL (3 mL) [...] migraines, DM2, and UC whowas transferred to [facility] for NSTEMI and now found to have [...] 3.66) performed by Dion Osullivan MD at [facility] ENDOSCOPY PRO COLONOSCOPY, BIOPSY N/A 02/22/2019 COLONOSCOPY FLEXIBLE, WITH BX (WRVU 3.66) performed by Dion Osullivan MD at [facility] PRO COLONOSCOPY, BIOPSY N/A 03/28/2022 COLONOSCOPY FLEXIBLE, WITH BX (WRVU 3.66) performed by Mona Turner MD at [facility] PRO COLONOSCOPY, BIOPSY N/A 01/20/2024 COLONOSCOPY FLEXIBLE, WITH BX (WRVU 3.56) performed by Anthony Hamlin MD at [facility] END[facility] PRO COLONOSCOPY, DIAGNOSTIC 11/27/2011 COLONOSCOPY, DIAGNOSTIC performed by Dion OSULLIVAN at [facility] PRO COLONOSCOPY, DIAGNOSTIC 07/13/2014 COLONOSCOPY, DIAGNOSTIC performed by Dion Osullivan MD at [facility] PRO COLONOSCOPY, REMV LESN, SNARE N/A 02/22/2019 COLONOSCOPY, POLYPECTOMY, REMOVAL LESION BY SNARE (WRVU 4.67) performed by Dion Osullivan MD at [facility] PRO COLONOSCOPY, REMV LESN, SNARE N/A 02/26/2021 COLONOSCOPY, POLYPECTOMY, REMOVAL LESION BY SNARE (WRVU 4.67) performed by Dion Osullivan MD at [facility] PRO SIGMOIDOSCOPY, DIAGNOSTIC 03/16/2012 FLEXIBLE SIGMOIDOSCOPY performed by YUDI MALLOY at [facility] PRO UPPER GI ENDOSCOPY, DIAGNOSTIC N/A 04/28/2019 EGD, UPPER GI ENDOSCOPY performed by Iza Coates MD at [facility] UPPER GI ENDOSCOPY, EXAM 10/01/2012 UPPER GI ENDOSCOPY performed by Dion OSULLIVAN at [facility] Social History: Home set-up: Lives on the first floor of a two level home in [place], [place] Stairs: FOS with bilateral rails vs a few stairs through the back to the first level, 8 step between rooms Bathroom Set-up: Tub-shower with grab bars, no shower chair Baseline Mobility: Ambulates without an assistive device. Independent with I/ADLs, including driving. 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 He sleeps in a flat bed. 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 [...] (108) mm Hg), other vitals stable on RA RN aware. Otherwise, pt appears to be [...] Moderate Complexity Evaluation Qing Braxton, PT Pager: [phone] Physical Therapy Inpatient Rehabilitation Department * Day, Tray Bassett OT - 07/04/2024 9:40 AM EDT Occupational Therapy Evaluation Patient profile: Brian Rodriguez is a 74 y.o. male admitted on 06/30/2024 with PMHx of HTN, HLD, migraines, DM2, and UC who was transferred to [facility] for NSTEMI and now found to have HFrEF. Pt now s/p PCIto LCX. Past Medical History: Diagnosis Date Asthma 10/01/2011 Diabetes mellitus 10/01/2011 GERD (gastroesophageal reflux disease) 10/01/2011 Hearing loss 10/01/2011 Hydrocele 10/01/2011 Ulcerative colitis 10/01/2011 Past Surgical History: Procedure Laterality Date PRO COLONOSCOPY, BIOPSY N/A 02/12/2017 COLONOSCOPY FLEXIBLE, WITH BX (WRVU 3.66) performed by Dion Osullivan MD at [facility] PRO COLONOSCOPY, BIOPSY N/A 02/22/2019 COLONOSCOPY FLEXIBLE, WITH BX (WRVU 3.66) performed by Dion Osullivan MD at [facility] PRO COLONOSCOPY, BIOPSY N/A 03/28/2022 COLONOSCOPY FLEXIBLE, WITH BX (WRVU 3.66) performed by Mona Turner MD at [facility] PRO COLONOSCOPY, BIOPSY N/A 01/20/2024 COLONOSCOPY FLEXIBLE, WITH BX (WRVU 3.56) performed by Anthony Hamlin MD at [facility] PRO COLONOSCOPY, DIAGNOSTIC 11/27/2011 COLONOSCOPY, DIAGNOSTIC performed by Dion OSULLIVAN at [facility] PRO COLONOSCOPY, DIAGNOSTIC 07/13/2014 COLONOSCOPY, DIAGNOSTIC performed by Dion Osullivan MD at [facility] PRO COLONOSCOPY, REMV LESN, SNARE N/A 02/22/2019 COLONOSCOPY, POLYPECTOMY, REMOVAL LESION BY SNARE (WRVU 4.67) performed by Dion Osullivan MD at [facility] END[facility] PRO COLONOSCOPY, REMV LESN, SNARE N/A 02/26/2021 COLONOSCOPY, POLYPECTOMY, REMOVAL LESION BY SNARE (WRVU 4.67) performed by Dion Osullivan MD at [facility] PRO SIGMOIDOSCOPY, DIAGNOSTIC 03/16/2012 FLEXIBLE SIGMOIDOSCOPY performed by YUDI MALLOY at [facility] PRO UPPER GI ENDOSCOPY, DIAGNOSTIC N/A 04/28/2019 EGD, UPPER GI ENDOSCOPY performed by Iza Coates MD at [facility] UPPER GI ENDOSCOPY, EXAM 10/01/2012 UPPER GI ENDOSCOPY performed by Dion OSULLIVAN at [facility] Social History: Home set-up: Lives on the first floor of a two level home in [place], [place] Stairs: FOS with bilateral rails vs a few stairs through the back to the first level, 8 step between rooms Bathroom Set-up: Tub-shower with grab bars, no shower chair Baseline Mobility: Ambulates without an assistive device. Independent with I/ADLs, including driving. 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 He sleeps in a flat bed. 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 [...] evaluation only Total Minutes, Occupational Therapy: 39 (0940-1019AM; Eval; 1 unit) 2017 OT Evaluation Code [...] and measurable assessment of functional outcome. Pager: [phone] Tray Bassett. WILLY LoganR/L Occupational Therapy Rehabilitation Department * Armond Denny MD - 07/03/2024 7:03 AM EDT Inpatient Cardiology Progress Note Patient Name: Brian Rodriguez Date of Admission: 06/30/2024 ( Hospital Day 3 days ) Service: S2 ID: Brian Rodriguez is a 74 y.o. male with PMHx of HTN, HLD, migraines, DM2, and UC who presented [facility] for chest pain and was transferred to [facility] for NSTEMI found to have HFrEF. Active [...] deficit Labs Recent Labs 07/03/24 0402 07/02/24 0712 07/01/24 1032 WBC 5.90 5.99 7.02 HGB 11.0* 11.3* 12.2* HCT 33.1* 34.3* 36.5* PLATELET 156 155 167 Recent Labs 07/03/24 0402 07/02/24 0712 06/30/24 2325 NA 138 136 141 K 3.6 3.6 3.4* CL 105 104 106 CO2 22 24 25 BUN 15 13 10 CREATININE 1.25 1.18 1.02 No results for input(s): AST, ALT, ALKPHOS, BILITOT, BILIDIR in the last 168 hours. Recent Labs 07/03/24 0402 07/02/24 0712 06/30/24 2325 CALCIUM 9.2 8.8 9.2 MAGNESIUM 0.86 0.89 0.84 Last 3 ProBNP, Trop, CK Recent Labs 06/30/24 1809 PROBNP 2,259* Trops: OSH 4143 >20,000>> [facility] 1234 and 1274 06/30 Telemetry: some PVCs [...] to exclude urinary tract infection. Cardiac Catheterization: ([facility]) RIGHT dominance LVEDP 10 Artery Lesion Intervention [...] DM2, and UC who was transferred to [facility] for NSTEMI and now found to have [...] 7.3. Will need outpatient follow up for senior care changes. - holding home glipizide and metformin [...] Katia Reid MD Internal Medicine PGY-3 Pager [phone], M1-S2 Service CARDIOLOGY STAFF NOTE I have personally interviewed and examined the patient and reviewed appropriate data, including labs, ECGs and other diagnostic studies. I agree with the principal findings documented above. The assessment and plan were formulated in discussion with me. Armond Denny MD, [facility], [facility] Staff Converter Supervisor solar engineer * Armond Denny MD - 07/02/2024 6:17 AM EDT Inpatient Cardiology Progress Note Patient Name: Brian Rodriguez Date of Admission: 06/30/2024 ( Hospital Day 2 days ) Service: S2 ID: Brian Rodriguez is a 74 y.o. male with PMHx of HTN, HLD, migraines, DM2, and UC who presented [facility] for chest pain and was transferred to [facility] for NSTEMI found to have HFrEF. Active [...] 1809 PROBNP 2,259* Trops: OSH 4143 >20,000>> [facility] 1234 and 1274 06/30 Telemetry: some PVCs [...] to exclude urinary tract infection. Cardiac Catheterization: ([facility]) RIGHT dominance LVEDP 10 Artery Lesion Intervention [...] DM2, and UC who was transferred to [facility] for NSTEMI and now found to have [...] 7.3. Will need outpatient follow up for senior care changes. - holding home glipizide and metformin [...] Ronel Hensley MD Internal Medicine PGY-1 Pager [phone], M1-S2 Service CARDIOLOGY STAFF NOTE I have personally interviewed and examined the patient and reviewed appropriate data, including labs, ECGs and other diagnostic studies. I agree with the principal findings documented above. The assessment and plan were formulated in discussion with me. Armond Denny MD, [facility], [facility] Staff Converter Supervisor solar engineer * Armond Denny MD - 07/01/2024 6:15 AM EDT Inpatient Cardiology Progress Note Patient Name: Brian Rodriguez Date of Admission: 06/30/2024 ( Hospital Day 1 day ) Service: S2 ID: Brian Rodriguez is a 74 y.o. male with PMHx of HTN, HLD, migraines, DM2, and UC who presented [facility] for chest pain and was transferred to [facility] for NSTEMI found to have HFrEF. Active Problems: Active Hospital Problems Diagnosis NSTEMI (non-ST elevated myocardial infarction) Resolved Hospital Problems No resolved problems to display. 24 hr events: Yesterday - transferred to [facility] for NSTEMI Overnight - no acute events [...] the last 168 hours. Recent Labs 06/30/24 232 CALCIUM 9.2 MAGNESIUM 0.84 Last 3 ProBNP, Trop, CK Recent Labs 06/30/24 1809 PROBNP 2,259* Trops: OSH 4143 >20,000>> [facility] 1234 and 1274 last night Telemetry: NSR [...] DM2, and UC who was transferred to [facility] for NSTEMI and now found to have [...] 7.3. 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 - holding home glipizide and metformin [...] Ronel Hensley MD Internal Medicine PGY-1 Pager [phone], M1-S2 Service CARDIOLOGY STAFF NOTE I have personally interviewed and examined the patient and reviewed appropriate data, including labs, ECGs and other diagnostic studies. I agree with the principal findings documented above. The assessment and plan were formulated in discussion with me. Plan for cath today and introduction of full complement of medical therapies for ACS/HFrEF. Armond Denny MD, [facility], [facility] Staff Converter Supervisor solar engineer documented in this encounter H&P Notes * Lynette Díazsera Woodard, RUBBER STAMP DIE INSPECTOR - 07/01/2024 9:33 AM EDT Images from the original note were not included. HVC Pre-Procedure H&P and Pre-Sedation Assessment Brian Rodriguez [...] PCP: Deacon Watters APRN PCP phone #: [phone] ID/Chief Complaint: Brian Rodriguez is a 74 y.o. male with PMHx of HTN, HLD, migraines, DM2, and UC who presented to [facility] for chest pain and was transferred to [facility] for NSTEMI. History of Present Illness: Brian [...] infarction) Ulcerative colitis Colonoscopy 04/08/10 (Dr. Gomes [facility]) - inflammation only within the rectum and sigmoid; extent of the exam was to the hepatic flexure; biopsies proximal to the sigmoid nl Repeat exam 11/27/11 ([facility]): mildly active colitis in the sigmoid colon [...] ascending colon. Several HPs and one TA. [place] 03/2022 - [place] 1 limited to rectosigmoid, [...] as needed for Wheezing. Use with spacer PACO SCOTT U-100 INSULIN 100 unit/mL (3 mL) [...] in the last 7068 hours. Invalid input(s): [id number] Heme: No results for input(s): LDH, HAPTOGLOBIN, [...] DM2, and UC who was transferred to [facility] for NSTEMI. Given Brian's presentation and his [...] Admit to Cardiology, S2 Team Pager # [phone] #NSTEMI > trops elevated to 4143 and 20,000 at OSH - s/p ASA and Plavix load - heparin gtt - continue 81 mg ASA - continue 75 mg plavix - repeat EKG with posterior leads - restarted atorvastatin 80 mg - TTE pending - trending trops here - NPO at midnight for [facility] tomorrow #Migraines - holding propranolol for now, [...] Medicine Cardiology Service Associated attestation - Triston Godinze MD - 06/30/2024 9:28 PM EDT In [...] of Care Goal: Plan of Care Review 07/04/20241452 by Jenny Reddy RN Outcome: Outcome (s) [...] in an outpatient cardiac rehabilitation program at [facility] was discussed. Patient agrees to a referral [...] Other * Plan of Care - Shea Shaver RN - 07/03/2024 10:16 PM EDT Problem: [...] Operative Note Patient Name: Brian Rodriguez : [id number] MR#: [id number] Case Date: 07/01/2024 Surgeon: Surgeons and Role: [...] 07/01/2024 12:11 PM EDT Brian completed a [place] Advanced directive and stated that if he [...] surrogate would be surrogate decision maker per [place] surrogate decision making law. (Only good for 180 days) Any patient receiving care in [place] must abide by [place] law. The hierarchy for surrogate decision making [...] (i) The agent with financial power of deputy attorney general or a conservator appointed in accordance with [...] were you homeless or living in a detention (including now)?: No In the past 12 months has the electric, gas, oil, or water company threatened [...] Current DME: none Home Address confirmed as: [address] [place] [address] Social & Family Supports: All names listed below confirmed with patient as current and correct Extended Emergency Contact Information Primary Emergency Contact: Sabrina Eisenberg Address: [address] [place] [id number] [facility] Relation: Child Secondary Emergency Contact: Enrique [...] Yes ; Prescription Coverage: Yes Preferred Pharmacy: [facility] - [facility], [place] - [address] [facility] [address] [place] [address] Status: Patient is a : No Primary Care Provider confirmed: Deacon Watters, JAZMINE [phone] Potential Needs for Transition of Care: none [...] 9:00 AM EDT Office [place] [address] Dion Osullivan MD [facility] GASTRO[facility] [address] 09/01/2024 9:40 AM EDT Office Visit Cardiology at [address] [phone] Franky Shaver MD [facility] [place] [address] 09/01/2024 11:20 AM EDT Office Visit Dermatology at [place] [address] [place] [address] Gómez Mercer MD [facility] [address] 09/21/2024 2:45 PM EDT Office Visit [facility] [place] [id number] Trung Hoyos MD [facility] [place] [address] Scheduled Referrals Name Type Priority Associated Diagnoses [...] PM EDT URINALYSIS BEAKER MICROSCPIC REFLEX EXAM ([facility]) Routine 07/03/2024 3:02 PM EDT [...] elevated myocardial infarction) CARDIAC CATHETERIZATION Routine 07/01/20 24 5:00 PM EDT POC, GLUCOSE Routine 07/01/2024 [...] - 199 mg/dL 07/04/2024 2:12 PM EDT [facility] Comment:Supplemental ranges: <140 mg/dL before meals <180 mg/dL all other times of the day. Blood CAPILLARY BLOOD / Unknown 07/04/2024 1:49 PM EDT 07/04/2024 2:12 PM EDT Armond Denny MD POINT OF CARE TEST O CEE Performing Organization Address City/[facility]/ZIP Co de Phone Number [facility] [place] [address] * (ABNORMAL) POC, GLUCOSE (07/04/2024 11:55 AM EDT) Glucometer, POC 287(H) 65 - 199 mg/dL 07/04/2024 11:55 AM EDT [facility] Comment:Supplemental ranges: <140 mg/dL before meals <180 mg/dL all other times of the day. Blood CAPILLARY BLOOD / Unknown 07/04/2024 11:55 AM EDT 07/04/2024 11:55 AM EDT Armond Denny MD POINT OF CARE TEST O RDERAOMAR Performing Organization Address City/[facility]/ZIP Co de Phone Number [facility] [place] [address] * (ABNORMAL) POC, GLUCOSE (07/04/2024 11:18 AM EDT) Glucometer, POC 259(H) 65 - 199 mg/dL 07/04/2024 11:32 AM EDT [facility] Comment:Supplemental ranges: <140 mg/dL before meals <180 mg/dL all other times of the day. Blood CAPILLARY BLOOD / Unknown 07/04/2024 11:18 AM EDT 07/04/2024 11:32 AM EDT Armond Denny MD POINT OF CARE TEST O RDERABLES Performing Organization Address City/[facility]/ZIP Co de Phone Number [facility] [place] [address] * POC, GLUCOSE (07/04/2024 8:04 AM EDT) Glucometer, POC 111 65 - 199 mg/dL 07/04/2024 8:04 AM EDT [facility] Comment:Supplemental ranges: <140 mg/dL before meals <180 mg/dL all other times of the day. Blood CAPILLARY BLOOD / Unknown 07/04/2024 8:04 AM EDT 07/04/2024 8:04 AM EDT Armond Denny MD POINT OF CARE TEST O RDERABLES Performing Organization Address [facility] Co de Phone Number [facility] [place] [address] * Magnesium (07/04/2024 1:43 AM EDT) Magnesium 0.80 0.69 - 1.07 mMol/L 07/04/2024 2:23 AM EDT [facility] Blood VENOUS BLOOD SPECIMEN / Unknown IP Care Team Draw / Unknown 07/04/2024 1:43 AM EDT 07/04/2024 1:52 AM EDT Triston Godinez MD CHEMISTRY ORDERABLES Performing Organization Address City/[facility]/ZIP Co de Phone Number [facility] [place] [address] * (ABNORMAL) Basic Metabolic Panel (07/04/2024 1:43 AM EDT) Glucose 156 65 - 199 mg/dL 07/04/2024 2:23 AM [facility] Comment:Glucose Concentratio n >=200 mg/dL plus symptoms is consistent with Diabetes Mellitus. Blood Urea Nitrogen 12 10 - 20 mg/dL 07/04/2024 2:23 AM [facility] Creatinine 1.27 0.80 - [...] 8.5 - 10.5 mg/dL 07/04/2024 2:23 AM [facility] Est Glomerular [...] AM EDT Triston Godinez MD CHEMISTRY ORDERABLES [facility] [place] [address] * (ABNORMAL) CBC (with Diff) (07/04/2024 1:43 AM EDT) White Blood Cell 5.05 4.00 - 9.50 x10(3)/mc L 07/04/2024 2:00 AM EDT [facility] Red Blood Cell 3.11(L) 4.58 - 5.54 x10(6)/mc L 07/04/2024 2:00 AM EDT [facility] Hemoglobin 10.5(L) 13.7 - 16.5 g/dL 07/04/2024 2:00 AM EDT [facility] Hematocrit 31.5(L) 40.5 - 48.5 % 07/04/2024 2:00 AM EDT [facility] Mean Cell Volume 101.3(H) 82.9 - 93.1 fL 07/04/2024 2:00 AM EDT [facility] Mean Cell Hemoglobin 33.8(H) 27.5 - 32.1 pg 07/04/2024 2:00 AM EDT [facility] Mean Cell Hemoglobin Concentration 33.3 32.0 - 35.7 g/dL 07/04/2024 2:00 AM EDT [facility] Platelet 145 145 - 357 x10(3)/mc L 07/04/2024 2:00 AM EDT [facility] Mean Platelet Volume 11.5 7.6 - 12.9 fL 07/04/2024 2:00 AM EDT [facility] RDW Standard Deviation 48.2(H) 36.0 - 45.0 fL 07/04/2024 2:00 AM EDT [facility] RDW coefficient of variation 13.1 11.4 - 13.8 % 07/04/2024 2:00 [facility] NRBC% auto [...] Immature Gran % 0.4 % 2:00 AM [facility] Immature Gran Absolute 0.02 0.00 - 0.04 x10(3)/mc L 07/04/2024 2:00 AM [facility] Blood VENOUS BLOOD SPECIMEN / Unknown IP Care Team Draw / Unknown 07/04/2024 1:43 AM EDT 07/04/2024 1:52 AM EDT Triston Godinez MD HEMATOLOGY ORDERABLE S Performing Organization Address [facility] [place] [facility] Co de Phone Number [facility] [place] [address] * (ABNORMAL) POC, GLUCOSE (07/03/2024 8:02 PM EDT) Glucometer, POC 251(H) 65 - 199 mg/dL 07/03/2024 8:02 PM EDT [facility] Comment:Supplemental ranges: <140 mg/dL before meals <180 mg/dL all other times of the day. Blood CAPILLARY BLOOD / Unknown 07/03/2024 8:02 PM EDT 07/03/2024 8:02 PM EDT Armond Denny MD POINT OF CARE TEST O CEE Performing Organization Address [facility] [place] [facility] Co de Phone Number [facility] [place] [address] * (ABNORMAL) POC, GLUCOSE (07/03/2024 4:47 PM EDT) Glucometer, POC 217(H) 65 - 199 mg/dL 07/03/2024 4:47 PM EDT [facility] Comment:Supplemental ranges: <140 mg/dL before meals <180 mg/dL all other times of the day. Blood CAPILLARY BLOOD / Unknown 07/03/2024 4:47 PM EDT 07/03/2024 4:47 PM EDT Armond Denny MD POINT OF CARE TEST O CEE Performing Organization Address [facility] [place] [facility] Co de Phone Number [facility] [place] [address] * (ABNORMAL) Urine culture (07/03/2024 3:02 PM EDT) Urine Culture 50,000-99,000 cfu/ml Escherichia coli(A) VITEK 2 METHOD 07/05/2024 8:01 AM EDT [facility] Urine Culture 10,000-49,000 cfu/ml mixed mucosal harika VITEK 2 METHOD 07/05/2024 8:01 AM EDT [facility] Urine URINE SPECIMEN OBTAINED BY [...] ug/ml: Sensitive Armond Denny MD MICROBIOLOGY - [facility] AL ORDERABLES [facility] [place] [address] * (ABNORMAL) Urinalysis Microscopic Reflex to Culture (07/03/2024 3:02 PM EDT) RBC, Urine 2 0 - 3 /HPF 07/03/2024 3:40 PM EDT [facility] WBC, Urine 55(H) 0 - 3 /HPF 07/03/2024 3:40 PM EDT [facility] Squamous Epithelial Cells, Urine 1 0 - 5 /HPF 07/03/2024 3:40 PM EDT [facility] Hyaline Casts, Urine 3(H) 0 - 2 /LPF 07/03/2024 3:40 PM EDT [facility] Comment 07/03/2024 3:40 PM EDT [facility] Comment:Interpret results wi th caution, microscopic results are from a suboptimal specimen. Bacteria, Urine Many(A) None /HPF 3:40 PM EDT [facility] Urine URINE SPECIMEN OBTAINED BY CLEAN CATCH PROCEDURE / Unknown Non Blood Collection / Unknown 07/03/2024 3:02 PM EDT 07/03/2024 3:13 PM EDT Armond Denny MD URINE ORDERABLES Performing Organization Address City/[facility]/ZIP Co de Phone Number [facility] [place] [address] * Urinalysis Microscopic with Reflex to Culture (07/03/2024 3:02 PM EDT) Urine URINE SPECIMEN OBTAINED BY CLEAN CATCH PROCEDURE / Unknown Non Blood Collection / Unknown 07/03/2024 3:02 PM EDT 07/03/2024 3:13 PM EDT Armond Denny MD URINE ORDERABLES Performing Organization Address [facility]/ZIP Co de Phone Number [facility] [place] [place] [address] * (ABNORMAL) Urinalysis with reflex Culture (07/03/2024 3:02 PM EDT) Glucose, Urine Dipstick Negative Negative 07/03/2024 3:40 PM EDT [facility] Protein, Urine Dipstick 30 mg/dL(A) Negative 07/03/2024 3:40 PM EDT [facility] Bilirubin, Urine Dipstick Small(A) Negative 07/03/2024 3:40 PM EDT [facility] Comment:Clinical correlation required for positive Urine Bilirubin results as false positive may occur with some drugs and drug related products. If a false positive is suspected a serum total bilirubin should be considered if clinically indicated. Urobilinogen, Urine Dipstick Normal Normal, 0.2 mg/dL, 1.0 mg/dL 07/03/2024 3:40 PM EDT [facility] pH, Urine (dipstick) 5.5 5.0 - 8.0 07/03/2024 3:40 PM EDT [facility] Blood, Urine Dipstick Negative Negative 07/03/2024 3:40 PM EDT [facility] Ketone, Urine Dipstick Trace(A) Negative 07/03/2024 3:40 PM EDT [facility] Nitrite, Urine Dipstick Positive(A) Negative 07/03/2024 3:40 PM EDT [facility] Leukocytes, Urine Dipstick Moderate(A) Negative 07/03/2024 3:40 PM EDT [facility] Specific [place] Urine Automated 1.024 1.005 - 1.030 07/03/2024 3:40 PM EDT [facility] Appearance, Urine Dipstick Cloudy(A) Clear 07/03/2024 3:40 PM EDT [facility] Color, Urine Dipstick Dark Yellow Yellow, Dark Yellow 07/03/2024 3:40 PM EDT [facility] Urine URINE SPECIMEN OBTAINED BY CLEAN CATCH PROCEDURE / Unknown Non Blood Collection / Unknown 07/03/2024 3:02 PM EDT 07/03/2024 3:13 PM EDT Armond Denny MD URINE ORDERABLES [facility] [place] [address] * POC, GLUCOSE (07/03/2024 11:21 AM EDT) [facility] Signature Glucometer, POC 177 65 - 199 mg/dL 07/03/2024 11:21 AM EDT [facility] Comment:Supplemental ranges: <140 mg/dL before meals <180 mg/dL all other times of the day. Blood CAPILLARY BLOOD / Unknown 07/03/2024 11:21 AM EDT 07/03/2024 11:21 AM EDT Armond Denny MD POINT OF CARE TEST O RDERABLES Performing Organization Address City/[facility]/ZIP Co de Phone Number [facility] [place] [address] * POC, GLUCOSE (07/03/2024 7:24 AM EDT) Glucometer, POC 124 65 - 199 mg/dL 07/03/2024 7:24 AM EDT [facility] Comment:Supplemental ranges: <140 mg/dL before meals <180 mg/dL all other times of the day. Blood CAPILLARY BLOOD / Unknown 07/03/2024 7:24 AM EDT 07/03/2024 7:24 AM EDT Armond Denny MD POINT OF CARE TEST O RDERABLES Performing Organization Address [facility]/ZIP Co de Phone Number [facility] [place] [address] * Magnesium (07/03/2024 4:02 AM EDT) Magnesium 0.86 0.69 - 1.07 mMol/L 07/03/2024 4:41 AM EDT [facility] Blood VENOUS BLOOD SPECIMEN / Unknown IP Care Team Draw / Unknown 07/03/2024 4:02 AM EDT 07/03/2024 4:07 AM EDT Triston Godinez MD CHEMISTRY ORDERABLES Performing Organization Address City/[facility]/ZIP Co de Phone Number [facility] [place] [address] * Basic Metabolic Panel (07/03/2024 4:02 AM EDT) Glucose 146 65 - 199 mg/dL 07/03/2024 4:41 AM [facility] Comment:Glucose Concentratio n >=200 mg/dL plus symptoms is consistent with Diabetes Mellitus. Blood Urea Nitrogen 15 10 - 20 mg/dL 07/03/2024 4:41 AM [facility] Creatinine 1.25 0.80 - 1.50 mg/dL [...] AM EDT Triston Godinez MD CHEMISTRY ORDERABLES [facility] [place] [address] * (ABNORMAL) CBC (with Diff) (07/03/2024 4:02 AM EDT) White Blood Cell 5.90 4.00 - 9.50 x10(3)/mc L 07/03/2024 4:13 AM EDT [facility] Red Blood Cell 3.27(L) 4.58 - 5.54 x10(6)/mc L 07/03/2024 4:13 AM EDT [facility] Hemoglobin 11.0(L) 13.7 - 16.5 g/dL 07/03/2024 4:13 AM [facility] Hematocrit 33.1(L) 40.5 - 48.5 % 07/03/2024 4:13 AM EDT [facility] Mean Cell Volume 101.2(H) 82.9 - 93.1 fL 07/03/2024 4:13 AM [facility] Mean Cell Hemoglobin 33.6(H) 27.5 - 32.1 pg 07/03/2024 4:13 AM [facility] Mean Cell Hemoglobin Concentration 33.2 32.0 - 35.7 g/dL 07/03/2024 4:13 AM [facility] Platelet 156 145 - 357 x10(3)/mc L 07/03/2024 4:13 AM EDT [facility] Mean Platelet Volume 11.3 7.6 - 12.9 fL 07/03/2024 4:13 AM [facility] RDW Standard Deviation 47.5(H) 36.0 - 45.0 fL 07/03/2024 4:13 AM [facility] RDW coefficient of variation 12.7 11.4 - 13.8 % 07/03/2024 4:13 AM [facility] NRBC% auto [...] - 0.04 x10(3)/mc L 07/03/2024 4:13 AM [facility] Blood VENOUS BLOOD SPECIMEN / Unknown IP Care Team Draw / Unknown 07/03/2024 4:02 AM EDT 07/03/2024 4:07 AM EDT Triston Godinez MD HEMATOLOGY ORDERABLE S [facility] [place] [address] * (ABNORMAL) POC, GLUCOSE (07/02/2024 8:45 PM EDT) Glucometer, POC 271(H) 65 - 199 mg/dL 07/02/2024 8:46 PM EDT [facility] Comment:Supplemental ranges: <140 mg/dL before meals <180 mg/dL all other times of the day. Blood CAPILLARY BLOOD / Unknown 07/02/2024 8:45 PM EDT 07/02/2024 8:46 PM EDT Armond Denny MD POINT OF CARE TEST O RDERABLES Performing Organization Address City/[facility]/ZIP Co de Phone Number [facility] [place] [address] * (ABNORMAL) POC, GLUCOSE (07/02/2024 4:18 PM EDT) Glucometer, POC 213(H) 65 - 199 mg/dL 07/02/2024 4:19 PM EDT [facility] Comment:Supplemental ranges: <140 mg/dL before meals <180 mg/dL all other times of the day. Blood CAPILLARY BLOOD / Unknown 07/02/2024 4:18 PM EDT 07/02/2024 4:19 PM EDT Armond Denny MD POINT OF CARE TEST O RDERAOMAR [facility] [place] [address] * (ABNORMAL) POC, GLUCOSE (07/02/2024 11:21 AM EDT) Glucometer, POC 234(H) 65 - 199 mg/dL 07/02/2024 11:21 AM EDT [facility] Comment:Supplemental ranges: <140 mg/dL before meals <180 mg/dL all other times of the day. Blood CAPILLARY BLOOD / Unknown 07/02/2024 11:21 AM EDT 07/02/2024 11:21 AM EDT Armond Denny MD POINT OF CARE TEST O RDERABLES Performing Organization Address City/[facility]/ZIP Co de Phone Number [facility] [place] [address] * POC, GLUCOSE (07/02/2024 7:28 AM EDT) Glucometer, POC 171 65 - 199 mg/dL 07/02/2024 7:28 AM EDT [facility] Comment:Supplemental ranges: <140 mg/dL before meals <180 mg/dL all other times of the day. Blood CAPILLARY BLOOD / Unknown 07/02/2024 7:28 AM EDT 07/02/2024 7:28 AM EDT Armond Denny MD POINT OF CARE TEST O RDERABLES Performing Organization Address [facility]/ZIP Co de Phone Number [facility] [place] [address] * Magnesium (07/02/2024 7:12 AM EDT) Magnesium 0.89 0.69 - 1.07 mMol/L 07/02/2024 8:09 AM EDT [facility] Blood VENOUS BLOOD SPECIMEN / Unknown IP Care Team Draw / Unknown 07/02/2024 7:12 AM EDT 07/02/2024 7:19 AM EDT Triston Godinez MD CHEMISTRY ORDERABLES Performing Organization Address City/[facility]/ZIP Co de Phone Number [facility] [place] [address] * Basic Metabolic Panel (07/02/2024 7:12 AM EDT) Glucose 161 65 - 199 mg/dL 07/02/2024 8:09 AM [facility] Comment:Glucose Concentratio [...] AM EDT Triston Godinez MD CHEMISTRY ORDERABLES [facility] [place] [address] * (ABNORMAL) CBC (with Diff) (07/02/2024 7:12 AM EDT) White Blood Cell 5.99 4.00 - 9.50 x10(3)/mc L 07/02/2024 7:41 AM EDT [facility] Red Blood Cell 3.36(L) 4.58 - 5.54 x10(6)/mc L 07/02/2024 7:41 AM EDT [facility] Hemoglobin 11.3(L) 13.7 - 16.5 g/dL 07/02/2024 7:41 AM [facility] Hematocrit 34.3(L) 40.5 - 48.5 % 07/02/2024 7:41 AM EDT [facility] Mean Cell Volume 102.1(H) 82.9 - 93.1 fL 07/02/2024 7:41 AM [facility] Mean Cell Hemoglobin 33.6(H) 27.5 - 32.1 pg 07/02/2024 7:41 AM [facility] Mean Cell Hemoglobin Concentration 32.9 32.0 - 35.7 g/dL 07/02/2024 7:41 AM [facility] Platelet 155 145 - [...] - 0.04 x10(3)/mc L 07/02/2024 7:41 AM [facility] Blood VENOUS BLOOD SPECIMEN / Unknown IP Care Team Draw / Unknown 07/02/2024 7:12 AM EDT 07/02/2024 7:19 AM EDT Triston Godinez MD HEMATOLOGY ORDERABLE S [facility] [place] [address] * CT Abdomen & Pelvis w Contrast (07/02/2024 3:13 AM EDT) WORKSTATION ID [id number] RAD Anatomical Region Laterality Modality Abdomen, Pelvis [...] who have questions please contact the health director of healthcare systems that requested your imaging first. ? Narrative [...] patients who have questions please contactthe health director of healthcare systems that requested your imaging first. Triston Godinez MD IMG CT ORDERABLES * POC, GLUCOSE (07/01/2024 7:58 PM EDT) Glucometer, POC 84 65 - 199 mg/dL 07/01/2024 7:59 PM EDT [facility] Comment:Supplemental ranges: <140 mg/dL before meals <180 mg/dL all other times of the day. Blood CAPILLARY BLOOD / Unknown 07/01/2024 7:58 PM EDT 07/01/2024 7:59 PM EDT Armond Denny MD POINT OF CARE TEST O CEE Performing Organization Address City/[facility]/ZIP Co de Phone Number [facility] [place] [address] * POC, GLUCOSE (07/01/2024 6:41 PM EDT) Glucometer, POC 91 65 - 199 mg/dL 07/01/2024 6:41 PM EDT [facility] Comment:Supplemental ranges: <140 mg/dL before meals <180 mg/dL all other times of the day. Blood CAPILLARY BLOOD / Unknown 07/01/2024 6:41 PM EDT 07/01/2024 6:41 PM EDT Armond Denny MD POINT OF CARE TEST O CEE Performing Organization Address [facility] Co de Phone Number [facility] [place] [address] * EKG 12 Lead (07/01/2024 5:24 PM EDT) Ventricular rate 77 BPM MUSE SYSTEM Atrial Rate 77 BPM MUSE SYSTEM P-R Interval 178 ms MUSE SYSTEM QRS Duration 138 ms MUSE SYSTEM Q-T Interval 418 ms MUSE SYSTEM QTC Calculated (Bezet) 473 ms MUSE SYSTEM Calculated P [place] 63 degrees MUSE SYSTEM Calculated R [place] 87 degrees MUSE SYSTEM Calculated T [place] 8 degrees MUSE SYSTEM INTERPRETATION Normal sinus rhythm Right bundle branch block Cannot rule out Inferior infarct , age undetermined Abnormal ECG When compared with ECG of 30-JUN-2024 17:23, Right bundle branch block is now Present Criteria for Septal infarct are no longer Present Confirmed by MD Lorie, Gabrielle ([id number]) on 07/03/2024 2:47:21 PM MUSE SYSTEM 07/01/2024 5:24 PM EDT 07/03/2024 2:47 PM EDT Lizzette Hayden MD ECG ORDERABLES MUSE SYSTEM * CARDIAC CATHETERIZATION (07/01/2024 5:00 PM EDT) Anatomical Region Laterality Modality Other Narrative 07/01/2024 7:47 PM EDT ?[facility] ? Cardiac Catheterization/Intervention Report ? Patient Name: Rodriguez, Brian Joya. ? Procedure Date: 07/01/2024 ? A #: [id number] ? Primary Physician: Lizzette Hayden ? Case #: [id number] ? File Name: [id number] ? Catheterization Order Number: [id number] ? [facility] ? Final Report [place], [place] ? Patient Name: ? Brian M. Rodriguez ?ID#: ?[id number] ? : ?1950 ? Procedure Date: ? July 01, 2024 ? Case #: ? [id number] ? Room: ? 5 ? Case Physician: ? Emad Catracho M.D. ? Start: ?15:10 ?Fellow: ? Max J Gary, M.D. ? Admission: ??06/30/2024 ?Elmo Byrd M.D. [...] procedure was Urgent. The indication for ?the manager cath lab visit is ACS less than or equal [...] ? A premounted 2.75 x 22 mm Lester Neal (EILEEN) was deployed ? with a maximum [...] dose administered prior to arrival in the manager cath lab. ?Recommended anti-platelet/anti-thrombotic regimen: ?Continue aspirin 81 mg daily. ?Continue clopidogrel 75 mg daily. ?These recommendations are made at the time of the intervention. Patient ?and provider preferences or a changing clinical situation may require ?modification of this regimen. Consult [facility] Interventional Cardiology for ?questions. ?This patient has [...] against any medical treatment. Consult ?http://tools.acc.org/DAPTriskapp/#!/content/calculator/ or [facility] ?Interventional Cardiology for questions ? Conclusions: ?* [...] Procedure Note Lizzette Hayden MD - 07/01/2024 [facility] Cardiac Catheterization/Intervention Report Patient Name: Brian Rodriguez Procedure Date: 07/01/2024 A #: [id number] Primary Physician: Lizzette Hayden Case #: [id number] File Name: [id number] Catheterization Order Number: [id number] [facility] FinalReport [place], [place] Patient Name: rBian Rodriguez ID#:[id number] :1950 Procedure Date: July 01, 2024 Case [...] patient was designated as ASA Class III. [facility] is 4: Vulnerable. Diagnostic Tests: Medications Prior to Procedure: Aspirin, Angiotensin II Receptor Leo and Statin. Indications for Diagnostic Cath: The priority of the diagnostic procedure was Urgent. The indicationfor the manager cath lab visit is ACS less than or equal [...] time was 37.0 minutes, dose area product ipt299.00 Gy/cm2 and air kerma was 1,874 mGY. [...] The priority for the procedure was Urgent.[facility] procedure was NSTE-ACS. Syntax [...] The lesion was predilated with a 2.50mm [id number] MM balloon with a maximum inflation pressure of 14atmospheres. A premounted 2.75 x 22 mm Rodo Neal (EILEEN) wasdeployed with a maximum inflation pressure [...] dose administered prior to arrival in the manager cath lab. Recommended anti-platelet/anti-thrombotic regimen: Continue aspirin 81 mg daily. Continue clopidogrel 75 mg daily. These recommendations are made at the time of the intervention.Patient and provider preferences or a changing clinical situation mayrequire modification of this regimen. Consult [facility] Interventional Cardiologyfor questions. This patient has a [...] or against any medical treatment.Consult http://tools.acc.org/DAPTriskapp/#!/content/calculator/ or [facility] Interventional Cardiology for questions Conclusions: * One [...] * POC, GLUCOSE (07/01/2024 11:35 AM EDT) [facility] Glucometer, POC 126 65 - 199 mg/dL 07/01/2024 11:35 AM EDT [facility] Comment:Supplemental ranges: <140 mg/dL before meals <180 mg/dL all other times of the day. Blood CAPILLARY BLOOD / Unknown 07/01/2024 11:35 AM EDT 07/01/2024 11:35 AM EDT Armond Denny MD POINT OF CARE TEST O RDERABLES [facility] [place] [address] * (ABNORMAL) Hemogram (07/01/2024 10:32 AM EDT) [facility] White Blood Cell 7.02 4.00 - 9.50 x10(3)/mc L 07/01/2024 11:20 AM EDT [facility] Red Blood Cell 3.68(L) 4.58 - 5.54 x10(6)/mc L 07/01/2024 11:20 AM EDT [facility] Hemoglobin 12.2(L) 13.7 - 16.5 g/dL 07/01/2024 11:20 AM EDT [facility] Hematocrit 36.5(L) 40.5 - 48.5 % 07/01/2024 11:20 AM EDT [facility] Mean Cell Volume 99.2(H) 82.9 - [...] EDT Armond Denny MD HEMATOLOGY ORDERABLE S [facility] [place] [address] * Heparin (unfractionated) Level (07/01/2024 10:32 AM EDT) UF Heparin 0.31 IU/mL 07/01/2024 11:25 AM [facility] Comment: Heparin (anti-Xa) levels should be [...] ORDERABLE S Performing Organization Address [facility] Co de Phone Number [facility] [place] [address] * POC, GLUCOSE (07/01/2024 7:18 AM EDT) Glucometer, POC 105 65 - 199 mg/dL 07/01/2024 7:19 AM EDT [facility] Comment:Supplemental ranges: <140 mg/dL before meals <180 mg/dL all other times of the day. Blood CAPILLARY BLOOD / Unknown 07/01/2024 7:18 AM EDT 07/01/2024 7:19 AM EDT Triston Godinez MD POINT OF CARE TEST O RDERABLES Performing Organization Address [facility] Co de Phone Number [facility] [place] [address] * Heparin (unfractionated) Level (07/01/2024 3:15 AM EDT) UF Heparin 0.36 IU/mL 07/01/2024 4:23 AM EDT [facility] Comment: Heparin (anti-Xa) levels should [...] EDT Triston Godinez MD HEMATOLOGY ORDERABLE S [facility] [place] [address] * (ABNORMAL) CBC (with Diff) (07/01/2024 3:15 AM EDT) White Blood Cell 5.82 4.00 - 9.50 x10(3)/mc L 07/01/2024 3:54 AM EDT [facility] Red Blood Cell 3.60(L) 4.58 - 5.54 x10(6)/mc L 07/01/2024 3:54 AM EDT [facility] Hemoglobin 11.9(L) 13.7 - 16.5 g/dL 07/01/2024 3:54 AM EDT [facility] Hematocrit 35.6(L) 40.5 - 48.5 % 07/01/2024 3:54 AM EDT [facility] Mean Cell Volume 98.9(H) 82.9 - [...] - 3.20 x10(3)/mc L 07/01/2024 3:54 AM [facility] Monocyte % 9.6 % 07/01/2024 3:54 AM [facility] Monocyte Absolute 0.56 0.30 - 0.90 x10(3)/mc L 07/01/2024 3:54 AM [facility] Eos % 2.6 % 07/01/2024 3:54 AM EDT [facility] Eos Absolute 0.15 0.00 - 0.40 x10(3)/mc L 07/01/2024 3:54 AM EDT [facility] Basophil % 0.5 % 07/01/2024 3:54 AM EDT [facility] Baso Absolute 0.03 0.00 - 0.10 x10(3)/mc L 07/01/2024 3:54 AM EDT [facility] Immature Gran % 0.3 % 3:54 AM EDT [facility] Immature Gran Absolute 0.02 0.00 - 0.04 x10(3)/mc L 07/01/2024 3:54 AM EDT [facility] Blood VENOUS BLOOD SPECIMEN / Unknown IP Care Team Draw / Unknown 07/01/2024 3:15 AM EDT 07/01/2024 3:37 AM EDT Triston Godinez MD HEMATOLOGY ORDERABLE S [facility] [place] [address] * Magnesium (06/30/2024 11:25 PM EDT) Magnesium 0.84 0.69 - 1.07 mMol/L 07/01/2024 12:14 AM EDT [facility] Blood VENOUS BLOOD SPECIMEN / Unknown IP Care Team Draw / Unknown 06/30/2024 11:25 PM EDT 06/30/2024 11:47 PM EDT Triston Godinez MD CHEMISTRY ORDERABLES [facility] [place] [address] * (ABNORMAL) Basic Metabolic Panel (06/30/2024 11:25 [...] [facility] Fasting Status 07/01/2024 12:14 AM [facility] Blood VENOUS BLOOD SPECIMEN / Unknown IP Care Team Draw / Unknown 06/30/2024 11:25 PM EDT 06/30/2024 11:47 PM EDT Triston Godinez MD CHEMISTRY ORDERABLES [facility] [place] [address] * (ABNORMAL) Troponin-T, Yuriy Sensitivity 3 Hour (06/30/2024 11:25 PM EDT) Troponin-T, High Sensitivity 1,274(H) <=22 ng/L 07/01/2024 12:14 AM EDT [facility] Comment: This patient's troponin T [...] troponin value can be found in the [facility] Laboratory Test Catalog Troponin - https://[facility]-.testcatalog.org/catalogs/565/files/36030 Reference: Fourth [place] Definition of Myocardial Infarction. Journal of the [place] College [employer] 2018;72:2777-9941 Troponin-T, HS 3 hr delta 65 ng/L 07/01/2024 12:14 AM EDT [facility] Comment:The 3 hour Troponin T delta value is the absolute difference between the Troponin T concentrations of the initial and subsequent sample collected between 2 h: 45 min and 6 h following the initial collection Blood VENOUS BLOOD SPECIMEN / Unknown IP Care Team Draw / Unknown 06/30/2024 11:25 PM EDT 06/30/2024 11:47 PM EDT Triston Godinez MD CHEMISTRY ORDERABLES [facility] [place] [address] * (ABNORMAL) Troponin-T, High Sensitivity 1 Hour (06/30/2024 8:22 PM EDT) Troponin-T, High Sensitivity 1,234(H) <=22 ng/L 06/30/2024 9:22 PM EDT [facility] Comment: This patient's troponin T [...] troponin value can be found in the [facility] Laboratory Test Catalog Troponin - https://[facility]-.testcatalog.org/catalogs/565/files/12483 Reference: Fourth [place] Definition of Myocardial Infarction. Journal of the [place] College [employer]iology 2018;72:7577-5618 Troponin-T, HS 1 hr delta 06/30/2024 9:22 PM EDT [facility] Comment:Delta troponin value not calculated, sample collected outside of delta calculation time limit. Blood VENOUS BLOOD SPECIMEN / Unknown Venipuncture / Unknown 06/30/2024 8:22 PM EDT 06/30/2024 8:40 PM EDT Triston Godinez MD CHEMISTRY ORDERABLES Performing Organization Address [facility] [place] [facility]/ZIP Co de Phone Number [facility] [place] [address] * POC, GLUCOSE (06/30/2024 7:56 PM EDT) Glucometer, POC 144 65 - 199 mg/dL 06/30/2024 7:57 PM EDT [facility] Comment:Supplemental ranges: <140 mg/dL before meals <180 mg/dL all other times of the day. Blood CAPILLARY BLOOD / Unknown 06/30/2024 7:56 PM EDT 06/30/2024 7:57 PM EDT Triston Godinez MD POINT OF CARE TEST O RDERABLES Performing Organization Address [facility] Co de Phone Number [facility] [place] [address] * XR Abdomen Flat & Upright (06/30/2024 6:56 PM EDT) WORKSTATION ID [id number] RAD Anatomical Region Laterality Modality Abdomen N/A Digital Radiogra phy Impressions 06/30/2024 9:12 PM EDT No obstruction or perforation. Thank you for letting us participate in the care of this patient. ??If you are a health care provider and have any questions regarding this report, please contact the number below. ??For patients who have questions please contact the health director of healthcare systems that requested your imaging first. ? Electronically signed by: Shireen Hurtado MD, [facility] ([phone]), at 06/30/2024 9:12 PM Narrative 06/30/2024 9:12 [...] patients who have questions please contactthe health director of healthcare systems that requested your imaging first. Electronically signed by: Shireen Hurtado MD, [facility]([phone]), at 06/30/2024 9:12 PM Triston Godinez MD IMG DX ORDERABLES * (ABNORMAL) Troponin-T, High Sensitivity (06/30/2024 6:09 PM EDT) [facility] Troponin-T, High Sensitivity Initial 1,209([facility] ) <=22 ng/L 06/30/2024 7:23 PM EDT [facility] Comment: This patient's troponin T [...] troponin value can be found in the [facility] Laboratory Test Catalog Troponin - https://[facility].[email or web address]/catalogs/565/files/27515 Reference: Fourth [place] Definition of Myocardial Infarction. Journal of the [place] College of Cardiology 2018;72:1473-2799 Blood VENOUS BLOOD SPECIMEN / Unknown Venipuncture / Unknown 06/30/2024 6:09 PM EDT 06/30/2024 6:18 PM EDT Triston Godinez MD CHEMISTRY ORDERABLES [facility] [place] [address] * (ABNORMAL) Basic Metabolic Panel (06/30/2024 6:09 PM EDT) Glucose 06/30/2024 8:08 PM EDT [facility] Comment:Insufficient sample. Informed Alli Vanasse at 20:07, 06.30.2024. Blood Urea Nitrogen 10 10 - 20 mg/dL 06/30/2024 8:08 PM EDT [facility] Creatinine 0.98 0.80 - 1.50 mg/dL 06/30/2024 8:08 PM EDT [facility] Sodium 140 135 - 145 mMol/L 06/30/2024 8:08 PM EDT [facility] Potassium 4.2 3.5 - 5.0 mMol/L 06/30/2024 8:08 PM EDT [facility] Chloride 105 98 - 107 mMol/L 06/30/2024 8:08 PM EDT [facility] Carbon Dioxide 21(L) 22 - 31 mMol/L 06/30/2024 8:08 PM EDT [facility] Anion Gap 14 5 - 15 mMol/L 06/30/2024 8:08 PM EDT [facility] Calcium 06/30/2024 8:08 PM EDT [facility] Comment:Insufficient sample. Informed Alli Davise at 20:07, 06.30.2024. Est Glomerular Filtration Rate - Male 80 mL/min/1. 73 m?? 06/30/2024 8:08 PM EDT [facility] Comment: This patient's estimated [...] Fasting Status Yes 06/30/2024 8:08 PM EDT [facility] Blood VENOUS BLOOD SPECIMEN / Unknown Venipuncture / Unknown 06/30/2024 6:09 PM EDT 06/30/2024 6:18 PM EDT Triston Godinez MD CHEMISTRY ORDERABLES [facility] [place] [address] * Lipid Panel (Reflex Direct LDL) (06/30/2024 6:09 PM EDT) Pathologist [facility] Cholesterol, Total 197 mg/dL 06/30/2024 6:51 PM EDT [facility] Comment: Desirable: < 200 mg/dL Borderline High: 200 - 239 mg/dL High: > or = 240 mg/dL Triglyceride 230 mg/dL 06/30/2024 6:51 PM EDT [facility] Comment: Normal: <150 mg/dL Borderline High: 150-199 mg/dL High: 200-499 mg/dL Very High: > or =500 mg/dL HDL Cholesterol 36 mg/dL 6:51 PM EDT [facility] Comment:Males: High Risk: <4 0 mg/dL LDL Cholesterol 120 mg/dL 6:51 PM EDT [facility] Comment: Desirable: <100 mg/dL Above Desirable: 100-129 mg/dL Borderline High: 130-159 mg/dL High: 160-189 mg/dL Very High: > or =190 mg/dL Note: LDL calculation updated to the NIH LDL formula as of 06/26/2024 Non-HDL Cholesterol 161 mg/dL 06/30/2024 6:51 PM EDT [facility] Comment: Desirable: <130 mg/dL Above Desirable: 130-159 mg/dL Borderline High: 160-189 mg/dL High: 190-219 mg/dL Very High: > or = 220 mg/dL Blood VENOUS BLOOD SPECIMEN / Unknown Venipuncture / Unknown 06/30/2024 6:09 PM EDT 06/30/2024 6:18 PM EDT [facility] - 06/30/2024 6:51 PM EDT It [...] lower. ?? ACC/AHA Guidelines (most recently Brianne rinaldi al. [facility] 08/26/22): * For individuals with atherosclerotic cardiovascular [...] artery disease) Triston Godinez MD CHEMISTRY ORDERABLES [facility] [place] [address] * (ABNORMAL) pro-Brain Natriuretic Peptide (06/30/2024 6:09 PM EDT) NT-proBNP 2,259(H) <=449 pg/mL 06/30/2024 6:51 PM EDT [facility] Blood VENOUS BLOOD SPECIMEN / Unknown Venipuncture / Unknown 06/30/2024 6:09 PM EDT 06/30/2024 6:18 PM EDT Triston Godinez MD CHEMISTRY ORDERABLES Performing Organization Address City/[facility]/ZIP Co de Phone Number [facility] [place] [address] * TSH (06/30/2024 6:09 PM EDT) Thyroid Stimulating Hormone 2.80 0.27 - 4.20 mcIU/mL 06/30/2024 6:51 PM EDT [facility] Blood VENOUS BLOOD SPECIMEN / Unknown Venipuncture / Unknown 06/30/2024 6:09 PM EDT 06/30/2024 6:18 PM EDT Triston Godinez MD CHEMISTRY ORDERABLES Performing Organization Address [facility] Co de Phone Number [facility] [place] [address] * Heparin (unfractionated) Level (06/30/2024 6:08 PM EDT) UF Heparin 0.07 IU/mL 06/30/2024 6:34 PM EDT [facility] Comment: Heparin (anti-Xa) levels should [...] EDT Triston Godinez MD HEMATOLOGY ORDERABLE S [facility] [place] [address] * (ABNORMAL) CBC (with Diff) (06/30/2024 6:08 PM EDT) White Blood Cell 6.45 4.00 - 9.50 x10(3)/mc L 06/30/2024 6:36 PM EDT [facility] Red Blood Cell 3.78(L) 4.58 - 5.54 x10(6)/mc L 06/30/2024 6:36 PM EDT [facility] Hemoglobin 12.7(L) 13.7 - 16.5 g/dL 06/30/2024 6:36 PM EDT [facility] Hematocrit 38.0(L) 40.5 - 48.5 % 06/30/2024 6:36 PM EDT [facility] Mean Cell Volume 100.5(H) 82.9 - 93.1 fL 06/30/2024 6:36 PM EDT [facility] Mean Cell Hemoglobin 33.6(H) 27.5 - 32.1 pg 06/30/2024 6:36 PM EDT [facility] Mean Cell Hemoglobin Concentration 33.4 32.0 - 35.7 g/dL 06/30/2024 6:36 PM EDT [facility] Platelet 79(L) 145 - 357 x10(3)/mc L 06/30/2024 6:36 PM EDT [facility] Mean Platelet Volume 11.2 7.6 - 12.9 fL 06/30/2024 6:36 PM EDT [facility] RDW Standard Deviation 48.4(H) 36.0 - 45.0 fL 06/30/2024 6:36 PM EDT [facility] RDW coefficient of variation 13.0 11.4 - 13.8 % 06/30/2024 6:36 PM EDT [facility] NRBC% auto 0.0 % 06/30/2024 6:[facility] NRBC Absolute 0.00 0.00 - 0.00 x10(3)/mc L 06/30/2024 6:36 PM EDT [facility] Neutrophil % 71.2 % 06/30/2024 6:36 PM EDT [facility] Neutrophil Absolute 4.59 1.70 - 6.10 x10(3)/mc L 06/30/2024 6:36 PM EDT [facility] Lymph % 18.1 % 06/30/2024 6:36 PM [facility] Lymph Absolute 1.17 0.90 - 3.20 x10(3)/mc L 06/30/2024 6:36 PM EDT [facility] Monocyte % 8.2 % 06/30/2024 6:36 PM EDT [facility] Monocyte Absolute 0.53 0.30 - 0.90 x10(3)/mc L 06/30/2024 6:36 PM EDT [facility] Eos % 1.7 % 06/30/2024 6:36 PM [facility] Eos Absolute 0.11 0.00 - 0.40 x10(3)/mc L 06/30/2024 6:36 PM EDT [facility] Basophil % 0.6 % 06/30/2024 6:36 PM EDT [facility] Baso Absolute 0.04 0.00 - 0.10 x10(3)/mc L 06/30/2024 6:36 PM [facility] Immature Gran % 0.2 % 6:36 PM [facility] Immature Gran Absolute 0.01 0.00 - 0.04 x10(3)/mc L 06/30/2024 6:36 PM [facility] Blood VENOUS BLOOD SPECIMEN / Unknown Venipuncture / Unknown 06/30/2024 6:08 PM EDT 06/30/2024 6:18 PM EDT Triston Godinez MD HEMATOLOGY ORDERABLE S Performing Organization Address [facility]/ZIP Co de Phone Number [facility] [place] [address] * (ABNORMAL) Hemoglobin A1c (06/30/2024 6:08 PM EDT) Hemoglobin A1c 7.3(H) 4.3 - 5.6 % 06/30/2024 9:03 PM EDT [facility] Comment: Per ADA guidelines, without [...] red blood cell turnover may not be sales representative business courses of glycemic control. Reference Interval: 4.3 - 5.6% 5.7 - 6.4%: Consistent with prediabetes >=6.5%: Consistent with diagnosis of diabetes mellitus Estimated Average Glucose 06/30/2024 9:03 PM EDT [facility] Comment:Not Calculated. Blood VENOUS BLOOD SPECIMEN / Unknown Venipuncture / Unknown 06/30/2024 6:08 PM EDT 06/30/2024 6:18 PM EDT Narrative [facility] - 06/30/2024 9:03 PM EDT Estimated average glucose (eAG) is calculated from the equation described in: John DM, Inna J, Nic R, et al. ??Translating the A1C assay into estimated average glucose values. ??Diabetes Care 2008:31(8):9458-5772. Additional resources are available on the ADA website (diabetes.org). Triston Godinez MD CHEMISTRY ORDERABLES Performing Organization Address City/[facility]/ZIP Co de Phone Number [facility] [place] [address] * POC, GLUCOSE (06/30/2024 5:58 PM EDT) Glucometer, POC 148 65 - 199 mg/dL 06/30/2024 5:58 PM EDT [facility] Comment:Supplemental ranges: <140 mg/dL before meals <180 mg/dL all other times of the day. Blood CAPILLARY BLOOD / Unknown 06/30/2024 5:58 PM EDT 06/30/2024 5:58 PM EDT Triston Godinez MD POINT OF CARE TEST O RDERABLES Performing Organization Address [facility] Co de Phone Number [facility] [place] [address] * EKG 12 Lead (06/30/2024 5:23 PM EDT) Ventricular rate 73 BPM MUSE SYSTEM Atrial Rate 300 BPM MUSE SYSTEM QRS Duration 72 ms MUSE SYSTEM Q-T Interval 404 ms MUSE SYSTEM QTC Calculated (Bezet) 445 ms MUSE SYSTEM Calculated P [place] 71 degrees MUSE SYSTEM Calculated R [place] 65 degrees MUSE SYSTEM Calculated T [place] 30 degrees MUSE SYSTEM INTERPRETATION Normal sinus [...] AM EDT Triston Godinez MD ECG ORDERABLES Performing Organization Address [facility] Co de Phone Number MUSE SYSTEM * ECHO COMPLETE W CONTRAST [...] NSTEMI (non-ST elevation myocardial infarction) Exam Location: [facility]. ? Conclusions -Left ventricular systolic function is moderately reduced. The left ventricular ejection fraction is 36% by Dowd's biplane. The anterolateral and inferolateral barahona are akinetic. The anterior wall is hypokinetic. -Right ventricle is mildly dilated. Systolic function is normal. -No significant valve disease. -See report for additional findings. No prior study is available. Procedure Complete-[id number]. Image enhancement Optison was used for left [...] - 06/30/2024 Version: 1 Name: BRIAN RODRIGUEZ Study Date: 06/30/2024,4: 39 PM BP: 137 / 78 [facility] 1950 (MM/DD/YYYY) Height: 193 cm Age: 74 Years Weight: 113 kg Gender: Male BSA: 2.43 m?? Ordering Physician: TRISTON GODINEZ Referring Physician: KENJI THOMAS Performed By: Carol Villarreal Reason For Study: NSTEMI (non-ST elevation myocardial infarction) Exam Location: [facility]. Conclusions -Left ventricular systolic function is moderately reduced. The leftventricular ejection fraction is 36% by Dowd's biplane. The anterolateral andinferolateral barahona are akinetic. The anterior wall is hypokinetic. -Right ventricle is mildly dilated. Systolic function is normal. -No significant valve disease. -See report for additional findings. No prior study is available. Procedure Complete-[id number]. Image enhancement Optison was used for left [...] (Bezet) 460 ms MUSE SYSTEM Calculated P Comptche 69 degrees MUSE SYSTEM Calculated R Comptche 78 degrees MUSE SYSTEM Calculated T Comptche 39 degrees MUSE SYSTEM INTERPRETATION Sinus rhythm Occasional Premature ventricular complexes Right bundle branch block Abnormal ECG No previous ECGs available Confirmed by MD Arthur, Gutierrez Boyd ([id number]) on 07/01/2024 9:55:31 AM MUSE SYSTEM 06/30/2024 3:53 PM EDT 07/01/2024 9:55 AM EDT Triston Godinez MD ECG ORDERABLES MUSE SYSTEM documented in this encounter Visit Diagnoses Diagnosis NSTEMI (non-ST elevated myocardial infarction)- Primary Acute myocardial infarction, subendocardial infarction, episode of care unspecified NSTEMI (non-ST elevated myocardial infarction) Acute myocardial infarction, subendocardial infarction, episode of care unspecified documented in this encounter Admitting Diagnoses Diagnosis NSTEMI [...] Given 07/02/2024 8:08 AM EDT 80 mg cefTRIAXone (Rocephin) 1 g vial attach to sodium chloride 0.9% 50 mL Mini-Bag Plus 1 g, Intravenous, EVERY 24 HOURS, 5 doses, First dose on Thu07/03/24 at 1730, Last dose on Thu07/07/24 at 1730, Administer over 30 Minutes, Indication for (Active or Suspected): Urinary Tract/Pyelonephritis New Bag 07/03/2024 5:29 PM EDT 1 g 100 mL/hr ciprofloxacin (Cipro) tablet 500 mg 500 mg, [...] PM EDT 40 mg Left Lower Quadrant folic acid (Vitamin B9) tablet 1,000 mcg 1,000 mcg, Oral, DAILY, First dose on Tresa 06/30/24 at 1730, Until Discontinued, Routine Given 07/04/2024 [...] grams.), Routine heparin (porcine) (1,000 units/mL) injection 0-4,000 Units 0-4,000 Units, Intravenous, BOLUS PER HEPARIN PROTOCOL, Starting on Thu06/30/24 at 1650, Until Thu07/01/24 at 2121, Per Protocol, START ADJUSTMENT SCHEDULE 6 HOURS AFTER STARTING INFUSION Bolus doses are rounded to the nearest 100 units. If Heparin UFH Level is: - Less than 0.1 international unit/mL: Bolus 60 units/kg (Maximum of 4,000 units) = Bolus 4,000 units - 0.1 - 0.19 International unit/mL: Bolus 30 units/kg (Maximum of 2,000 units) = Bolus 2,000 units - Equal to or greater than 0.2 international unit/mL: No Bolus, Routine Given 06/30/2024 9:08 PM EDT 4,000 Units heparin (porcine) 25,000 unit/500 mL (50 unit/mL) infusion 1 dose, Starting on Thu06/30/24 at 1548, Until Thu06/30/24 at 1551, Sujata Duncan: cabinet override heparin (porcine) 50 units/mL in dextrose 5% 500 mL infusion 0-5,000 Units/hr (0-100 mL/hr), Intravenous, CONTINUOUS, Starting on Tresa 06/30/24 at 1715, Until Thu07/01/24 at 2121, Begin infusion at 1,000 units per hr (12 units/kg/hr). Maximum initial infusion rate is 1,000 units/hr. Infusion doses are rounded to the nearest 50 units. Target Heparin UFH Level (anti-Xa activity) = 0.3 - 0.7 international unit/mL Start adjustment schedule 6 hours after starting infusion. If Heparin UFH Level is: - Less than 0.1 international unit/mL: Administer PRN bolus and increase rate by 450 units per hr (4 units/kg/hr) - 0.1 - 0.19 international unit/mL: Administer PRN bolus and increase rate by 200 units per hr (2 units/kg/hr) - 0.2 - 0.29 international unit/mL: NO BOLUS and increase rate by 200 units per hr (2 units/kg/hr) - 0.3 - 0.7 international unit/mL: No change - 0.71 - 0.79 international unit/mL: NO BOLUS and decrease rate by 100 units per hr (1 units/kg/hr) - 0.8 - 0.99 international unit/mL: NO BOLUS and decrease rate by 200 units per hr (2 units/kg/hr) - Greater than or equal to 1.00 international unit/mL: Hold infusion for 60 minutes then decrease rate by 350 units per hour (3 units/kg/hr) Obtain Heparin UFH Level 6 hours after initiating heparin. Then 6 hours after each dose adjustment. When 2 consecutive Heparin UFH Level within target range of 0.3 - 0.7 international unit/mL, change Heparin UFH Level to once every 24 hours with A.M. labs while on heparin. RN to order required Heparin UFH Level - Per Protocol, Routine New Bag 07/01/2024 10:18 AM EDT 1,450 Units/hr 29 mL/hr Rate/Dose Verify 07/01/2024 5:24 AM EDT 1,450 Units/hr 29 mL/hr Rate/Dose Change 06/30/2024 9:03 PM EDT 1,450 Units/hr 29 mL/hr insulin glargine-ygfn (Semglee) (100 unit/mL) subcutaneous injection vial 70 Units 70 Units, Subcutaneous, NIGHTLY, First dose on Thu06/30/24 at 2100, Until Discontinued, Routine Given 07/03/2024 [...] 1 Units iohexoL (Omnipaque) (350 mg/mL) solution 0-200 mL 0-200 mL, Intravenous, ONCE PRN, 1 dose, Starting on 07/02/24 at 0314, Until 07/02/24 at 0314, Per Protocol, Warning Vesicant/Irritant Medication , Radiology Contrast, Routine Given 07/02/2024 3:14 AM EDT 120 mLs iohexoL (Omnipaque) radiology oral prep (50 mL of oral contrast) 240 mL, Oral, ONCE, 1 dose, On [...] which they are drinking the contrast., Routine Given 07/01/2024 11:45 PM EDT 240 mLs iohexoL (Omnipaque) radiology oral prep (50 mL of oral contrast) 240 mL, Oral, ONCE, 1 dose, On [...] which they are drinking the contrast., Routine Given 07/02/2024 12:45 AM EDT 240 mLs iohexoL (Omnipaque) radiology oral prep (50 mL of oral contrast) 240 mL, Oral, ONCE, 1 dose, On [...] they are drinking the contrast. , Routine Given 07/02/2024 1:30 AM EDT 240 mLs iohexoL (Omnipaque) radiology oral prep (50 mL of oral contrast) 240 mL, Oral, ONCE, 1 dose, On [...] which they are drinking the contrast., Routine Given 07/02/2024 2:15 AM EDT 240 mLs ipratropium-albuteroL (Duoneb) 0.5 mg-3 mg(2.5 mg [...] Given 07/02/2024 8:09 AM EDT 100 mg magnesium sulfate 2 g in sterile water 50 mL infusion 2 g, Intravenous, ONCE, 1 dose, On Thu07/01/24 at 0645, Administer over 120 Minutes New Bag 07/01/2024 6:58 AM EDT 2 g 25 mL/hr magnesium sulfate 2 g in sterile water 50 mL infusion 2 g, Intravenous, ONCE, 1 dose, On Thu07/04/24 at 0800, Administer over 120 Minutes New Bag 07/04/2024 8:37 AM EDT 2 g 25 mL/hr metoprolol succinate XL (Toprol-XL) tablet 100 mg 100 mg, Oral, DAILY, First dose on Thu07/04/24 at 0900, Until Discontinued, DO NOT CRUSH OR OPEN, Routine Given 07/04/2024 8:37 AM EDT 100 mg metoprolol tartrate (Lopressor) tablet 12.5 mg 12.5 mg, Oral, EVERY 6 HOURS SCHEDULED, First dose on Thu07/02/24 at 1200, Until Discontinued, Routine Given 07/03/2024 5:49 AM EDT 12.5 mg Given 07/03/2024 12:19 AM EDT 12.5 mg Given 07/02/2024 5:33 PM EDT 12.5 mg metoproloL tartrate (Lopressor) tablet 25 mg 25 mg, Oral, EVERY 6 HOURS SCHEDULED, 3 doses, First dose (after last modification) on Thu07/03/24 at 1200, Last dose on Thu07/04/24 at 0000, Routine Given 07/03/2024 11:22 PM EDT 25 mg Given 07/03/2024 5:06 PM EDT 25 mg Given 07/03/2024 12:14 PM EDT 25 mg ondansetron (pf) (Zofran) (2 mg/mL) injection [...] Given 07/02/2024 8:08 AM EDT 40 mg perflutren protein-A microsphers (Optison) (0.22 mg/mL) injection 0.5 mL 0.5 mL, Intravenous, ONCE PRN, 1 dose, Starting on Thu06/30/24 at 1722, Until Thu06/30/24 at 1722, for enhancement of sub-optimal echo images, Echo Lab (Intra-Procedure), Routine Given 06/30/2024 5:22 PM EDT 2.4 mLs potassium chloride ER (Klor-Con M) crystal tablet 40 mEq 40 mEq, Oral, ONCE, 1 dose, On Thu07/01/24 at 0700, potassium chloride ER particle/crystal tablets (Klor-Con M) may be broken in half and each half swallowed separately. Tablets can be dissolved in ~4 ounces of water; allow ~2 minutes to dissolve, stir well and drink immediately. Do not crush, chew, or suck on tablet., Routine Given 07/01/2024 6:52 AM EDT 40 mEq potassium chloride ER (Klor-Con M) crystal tablet 40 mEq 40 mEq, Oral, ONCE, 1 dose, On Thu07/03/24 at 0730, potassium chloride ER particle/crystal tablets (Klor-Con M) may be broken in half and each half swallowed separately. Tablets can be dissolved in ~4 ounces of water; allow ~2 minutes to dissolve, stir well and drink immediately. Do not crush, chew, or suck on tablet., Routine Given 07/03/2024 8:24 AM EDT 40 mEq sodium chloride 0.9 % (flush) (BD PosiFlush Normal Saline 0.9) flush 5 mL 5 mL, Intravenous, 2 TIMES DAILY, First dose on Thu06/30/24 at 2100, Until Discontinued, Routine Given 07/04/2024 8:37 AM EDT 5 mLs Given 07/03/2024 8:12 PM EDT 5 mLs Given 07/03/2024 8:25 AM EDT 5 mLs spironolactone (Aldactone) tablet 12.5 mg 12.5 [...] Given 07/02/2024 8:09 AM EDT 0.8 mg documented in this encounter Active and [...] Tresa 06/30/24 at 1615, Until Discontinued, Routine 0808 (Given [...] 40 mg, Subcutaneous, NIGHTLY, First dose on 07/03/24 at 2100, Until Discontinued, Routine 2010 (Given - Provider: Shea Shaver RN) folic acid (Vitamin B9) tablet 1,000 mcg 1,000 mcg, Oral, DAILY, First dose on Thu06/30/24 at 1730, Until Discontinued, Routine 808 (Given - Provider: Sujata Duncan RN) 08 (Given - Provider: Jenny Reddy, RONY) 0836 (Given - Provider: Jneny Reddy, RN) insulin glargine-ygfn (Semglee) (100 unit/mL) subcutaneous injection vial 70 Units 70 Units, Subcutaneous, NIGHTLY, First dose on Thu06/30/24 at 2100, Until Discontinued, Routine 2045 (Given - Provider: Shea Shaver, RN) 2010 (Given - Provider: Shea Shaver, RN) insulin lispro (HumaLOG;Admelog) (100 unit/mL) subcutaneous injection vial 0-5 Units 0-5 Units, Subcutaneous, 3 TIMES DAILY WITH MEALS, First dose on Thu07/04/24 at 0800, Until Discontinued, MEAL ASSOCIATED Give 1 Unit to every 30 Carbs Hold if not eating or if BG less than 70 mg/dL., Routine 836 (Given - Provider: Jenny Reddy RN)1305 (Given [...] than 240 mg/dL in 2 hours., Routine 08 (Given - Provider: Sujata Duncan RN)1121 (Given - Provider: Sujata Duncan RN)1619 (Given - Provider: Sujata Duncan RN) 0730 (Not Given - Provider: Jenny Reddy RN - Reason: Order parameters not met)1123 (Given - Provider: Jenny Reddy RN)1706 (Given - Provider: Jenny Reddy RN) 0730 (Not Given - Provider: Jenny Reddy [...] Oral, ONCE, 1 dose, On Thu07/02/24 at 0215, Administer 8 ounce cup (240 [...] which they are drinking the contrast., Routine 0215 (Given - Provider: Shea Shaver RN) ketoconazole [...] RONY) 0900 (Given - Provider: Jenny Reddy, RONY) magnesium sulfate 2 g in sterile water 50 mL infusion (COMPLETED) 2 g, Intravenous, ONCE, 1 dose, On Thu07/04/24 at 0800, Administer over 120 Minutes 0837 (New Bag - Provider: Jenny Reddy RN)1037 (Stopped - Provider: Jenny Reddy RN) metoprolol succinate XL (Toprol-XL) tablet 100 mg 100 mg, Oral, DAILY, First dose on 07/04/24 at 0900, Until Discontinued, DO NOT CRUSH OR OPEN, Routine 0837 (Given - Provider: Jenny Reddy RN) metoprolol tartrate (Lopressor) tablet 12.5 mg (CANCELED) 12.5 mg, Oral, EVERY 6 HOURS SCHEDULED, First dose on [facility] 07/02/24 at 1200, Until Discontinued, Routine 1118 (Given - Provider: Sujata Duncan RN)1733 (Given - Provider: Sujata Duncan RN) 0019 (Given - Provider: Shea Shaver, RONY)0549 (Given - Provider: Shea Shaver, RONY) metoproloL tartrate (Lopressor) tablet 25 mg (COMPLETED) 25 mg, Oral, EVERY 6 HOURS SCHEDULED, 3 doses, First dose (after last modification) on 07/03/24 at 1200, Last dose on Thu07/04/24 at 0000, Routine 1214 (Given - Provider: Jenny Reddy RN)1706 (Given - Provider: Jenny Reddy RN)2322 (Given - Provider: Shea Shaver RN) pantoprazole EC (Protonix) tablet 40 mg 40 mg, Oral, DAILY, First dose on Tresa 06/30/24 at 1615, Until Discontinued 0808 (Given - Provider: Sujata Duncan RN) 0824 (Given - Provider: Jenny Reddy RN) 0836 (Given - Provider: Jenny Reddy, RONY) potassium chloride ER (Klor-Con M) crystal tablet 40 mEq (COMPLETED) 40 mEq, Oral, ONCE, 1 dose, On [place] 07/03/24 at 0730, potassium chloride ER particle/crystal tablets [...] on Thu06/30/24 at 2100, Until Discontinued, Routine 0809 (Given - Provider: Sujata Duncan RN)2046 (Given - Provider: Shea Shaver RN) 08 (Given - Provider: Jenny Reddy RN)2011 (Given - Provider: Shea Shaver RN) 0837 (Given - Provider: Jenny Reddy RN) spironolactone (Aldactone) tablet 12.5 mg 12.5 mg, Oral, DAILY, First dose on Thu07/02/24 at 1030, Until Discontinued, DO NOT SPLIT, CRUSH OR OPEN, Routine 1118 (Given - Provider: Sujata Duncan RN) 0824 (Given - Provider: Jenny Reddy RN) 0835 (Given - Provider: Jenny Reddy RN) sulfaSALAzine (Azulfidine) tablet 1,500 mg 1,500 mg, Oral, 2 TIMES DAILY, First dose on Thu07/01/24 at 0300, Until Discontinued, Routine 0350 (Given - Provider: Shea Shaver RN)1621 (Given - Provider: Sujata Duncan RN) 0338 (Given - Provider: Shea Shaver RN)1527 (Given - Provider: Jenny Reddy RN) 0316 (Given - Provider: Shea Shaver RN)1500 (Due - Provider: Iram De Jesus [facility]) tamsulosin (Flomax) capsule 0.8 mg 0.8 mg, [...] Oral, EVERY 6 HOURS PRN, Starting on Thu06/30/24 at 1647, Until Thu07/04/24 at 1725, Pain, [...] 06/30/24 at 1630, Until Thu07/04/24 at 1725, Low [...] Warning Vesicant/Irritant Medication , Radiology Contrast, Routine 031 (Given - Provider: Caron Reyes - Comment: [...] Intravenous, EVERY 1 MIN PRN, Starting on Tresa 06/30/24 at 1558, Until 07/04/24 at 1725, flush, Flush pertains to all [...] 240 mL, Oral, ONCE, 1 dose, On Thu07/01/24 at 2345, Administer 8 ounce cup (240 [...] 06/30/24 at 1630, Until Thu07/04/24 at 1725, Low [...] Routine documented in this encounter Care Teams Comic Illustrator Relationship Specialty Start Date End Date Deacon Watters, JAZMINE [address] [facility] [address] [place] [address] PCP - General Family Medicine 02/17/22 documented as of this encounter
--- OUTSIDE RECORDS SUMMARY | 2024-07-11 11:12 | XMS_ITS | Encounter Summary ---
Author Organization [facility] Address [facility] [place] [address] Care Team Providers Care Brim Pouncer Name Role Phone Deacon Watters APRN Primary Care Provider +1- [phone] Reason for Visit * Reason Comments Medication Refill Encounter Details Date Type Department Care Team (Late st Contact Info) Description 07/01/2024 [place] [address] Dion Barlow MD [facility] [place] [address] Social History Tobacco Use Types Packs/Day Years Used Date Smoking Tobacco: Former Cigarettes 4 30 1 12/01/1961 - 10/01/1992 Smokeless Tobacco: Former Chew Comments:Denies vaping Alcohol Use Standard Drinks/Week Comments Yes 0 (1 standard drink = 0.6 oz pur e alcohol) twice a year [facility] Utilities Answer Date Recorded In the past 12 months has e [employer], gas, oil, or water [employer] threatened to shut off services in your [...] any time in the past 12 m [facility], were you homeless or living in a m[facility]p (including now)? No 07/01/2024 IPV Inpatient Questions [...] 9:00 AM EDT Office [place] [address] Dion Barlow MD [facility] [address] 09/01/2024 9:40 AM EDT Office Visit Cardiology at [address] [phone] Franky Shaver MD [facility] [address] 09/01/2024 11:20 AM EDT Office Visit Dermatology at [facility] [address] [place] [phone] Gómez Mercer MD [facility] [address] [place] [address] 09/21/2024 2:45 PM EDT Office Visit [place] [phone] Trung Hoyos MD [facility] [place] [address] documented as of this encounter Visit Diagnoses Not on filedocumented in this encounter Care Teams Brim Pouncer Relationship Specialty Start Date End Date Deacon Watters, JAZMINE [address] [place] [address] PCP - General Family Medicine 02/17/22 documented as of this encounter
--- OUTSIDE RECORDS SUMMARY | 2024-07-11 11:13 | XMS_ITS | Encounter Summary ---
Author Organization [facility] [place] [address] Care Team Providers Care Immunohematologist Name Role Phone Deacon Watters APRN Primary Care Provider +1- [phone] Encounter Details Date Type Department Care Team (Late st Contact Info) Description 06/06/2024 Telephone [place] [phone] Marcelle Weinberg RESAW CARRIAGE OPERATOR [facility] [place] [address] Social History Tobacco Use Types Packs/Day Years [...] 9:00 AM EDT Office Visit [place] [phone] Dion Barlow MD [facility] [place] [address] 09/01/2024 9:40 AM EDT Office Visit Cardiology at [address] [address] Franky Shaver MD [facility] [place] [address] 09/01/2024 11:20 AM EDT Office Visit Dermatology at [address] [address] Gómez Mercer MD [facility] [place] [address] 09/21/2024 2:45 PM EDT Office Visit [facility] [place] [phone] Trung Hoyos MD [facility] [place] [address] documented as of this encounter Visit Diagnoses Not on filedocumented in this encounter Care Teams Immunohematologist Relationship Specialty Start Date End Date Deacon Watters APRN [address] [place] [address] [address] [facility] 1 [place] [address] PCP - General Family Medicine 02/17/22 documented as of this encounter
--- OUTSIDE RECORDS SUMMARY | 2024-07-11 11:13 | XMS_ITS | Encounter Summary ---
[place] [address] Care Team Providers Care Chief Privacy Officer Name Role Phone Deacon Watters APRN Primary Care Provider +1- [phone] Encounter Details Date Type Department Care Team (Late st Contact Info) Description 12/07/2023 Telephone [place] [phone] Estela Phillips Social History Tobacco Use Types [...] - 12/07/2023 10:47 AM EST Brian Rodriguez [id number] Diagnosis/Indication: UC surveillance Please review patient chart [...] your procedure. Who will likely be your gas truck driver for the procedure? *Please Verify [...] 9:00 AM EDT Office Visit [place] [phone] Dion Barlow MD [facility] [place] [address] 09/01/2024 9:40 AM EDT Office Visit Cardiology at [address] [phone] Franky Shaver MD [facility] [place] [address] 09/01/2024 11:20 AM EDT Office Visit Dermatology at [facility] [address] [place] [address] Gómez Mercer MD [facility] DR EDDIE [place] [address] 09/21/2024 2:45 PM EDT Office Visit [facility] [place] [address] Trung Hoyos MD [facility] [place] [address] documented as of this encounter Visit Diagnoses Not on filedocumented in this encounter Care Teams Chief Privacy Officer Relationship Specialty Start Date End Date Deacon Watters APRN [address] [place] [address] PCP - General Family Medicine 02/17/22 documented as of this encounter
--- OUTSIDE RECORDS SUMMARY | 2024-07-11 11:13 | XMS_ITS | Encounter Summary ---
Author Organization [facility] Address [facility] [place] [address] Care Team Providers Care Flight Engineer Inspector Name Role Phone Deacon Watters APRN Primary Care Provider +1- [phone] Reason for Visit * Consultation (Routine) - Closed Specialty Diagnoses / Procedures Referred By Perri wood Referred To Contact Dermatology Diagnoses Basal cell carcinoma (BCC), unspecified site Becca Villegas APRN [address] [place] [address] [place] [address] Kingsley Finn MD [facility] DR EDD[place] [address] Referral ID Status Reason Start Date Expiration Date V isits Requested Visits Authorized [id number] Closed Consult, Test & Treat PCP Updated and/or Approved 01/04/2024 01/03/2025 1 1 Encounter Details Date Type Department Care Team (Late st Contact Info) Description 01/28/2024 2:00 PM EST Office Visit Dermatology at [facility] [address] [place] [address] Kingsley Finn MD [facility] DR [place] [address] Basal cell carcinoma of right side of [...] and follow up with his or her book or script editor or other skin provider. 5. Discussed avoiding [...] Reviewed and signed by: Kingsley Finn Dermatology [facility] documented in this encounter Plan of Treatment Upcoming Encounters Date Type Department Care Team (Late st Contact Info) Description 08/15/2024 9:00 AM EDT Office Visit [place] [address] Dion Barlow MD [facility] [place] [address] 09/01/2024 9:40 AM EDT Office Visit Cardiology at [address] [address] Franky Shaver MD [facility] [place] [address] 09/01/2024 11:20 AM EDT Office Visit Dermatology at [facility] [address] [place] [address] Gómez Mercer MD [facility] DR [place] [address] 09/21/2024 2:45 PM EDT Office Visit [facility] [place] [address] Trung Hoyos MD [facility] [place] [address] Scheduled Referrals Name Type Priority Associated Diagnoses Orde r Schedule Referral to Dermatology Outpatient Referral Routine Basal cell carcinoma (BCC), unspecified site Ordered: 01/04/2024 documented as of this encounter Visit Diagnoses Diagnosis Basal cell carcinoma of right side of nose Basal cell carcinoma of skin of other and unspecified parts of face documented in this encounter Care Teams Flight Engineer Inspector Relationship Specialty Start Date End Date Deacon Watters, DRYWALL HANGER [address] [place] [address] PCP - General Family Medicine 02/17/22 documented as of this encounter
--- OUTSIDE RECORDS SUMMARY | 2024-07-11 11:13 | XMS_ITS | Encounter Summary ---
Author Organization [facility] Address [facility] [place] [address] Care Team Providers Care Procurement Accountant Name Role Phone DuongVeliakip Wells APRN Primary Care Provider +1- [phone] Encounter Details Date Type Department Care Team [...] 9:00 AM EDT Office [place] [address] Dion Barlow MD [facility] [place] [address] 09/01/2024 9:40 AM EDT Office Visit Cardiology at [address] [phone] Franky Shaver MD [facility] [place] [address] 09/01/2024 11:20 AM EDT Office Visit Dermatology at [facility] [address] [place] [address] Gómez Mercer MD [facility] DR [place] [address] 09/21/2024 2:45 PM EDT Office Visit Pain and Spine Center at [facility] [place] [address] Trung Hoyos MD [facility] [place] [address] documented as of this encounter Visit Diagnoses Not on filedocumented in this encounter Care Teams Procurement Accountant Relationship Specialty Start Date End Date Deacon Watters, JAZMINE [address] [place] [address] PCP - General Family Medicine 02/17/22 documented as of this encounter
--- OUTSIDE RECORDS SUMMARY | 2024-07-11 11:13 | XMS_ITS | Encounter Summary ---
Author Organization [facility] Address [facility] [place] [address] Care Team Providers Care Fur Dressing Supervisor Name Role Phone DuongVeliakip Wells APRN Primary Care Provider +1- [phone] Encounter Details Date Type Department Care Team [...] 9:00 AM EDT Office Visit [place] [address] Dion Barlow MD [facility] [place] [address] 09/01/2024 9:40 AM EDT Office Visit Cardiology at [address] [phone] Franky Shaver MD [facility] [place] [address] 09/01/2024 11:20 AM EDT Office Visit Dermatology at [facility] [address] [place] [address] Gómez Mercer MD [facility] DR [place] [address] 09/21/2024 2:45 PM EDT Office Visit Pain and Spine Center at [facility] [place] [address] Trung Hoyos MD [facility] [place] [address] documented as of this encounter Visit Diagnoses Not on filedocumented in this encounter Care Teams Fur Dressing Supervisor Relationship Specialty Start Date End Date Deacon Watters, JAZMINE [address] [place] [address] PCP - General Family Medicine 02/17/22 documented as of this encounter
--- OUTSIDE RECORDS SUMMARY | 2024-07-11 11:13 | XMS_ITS | Encounter Summary ---
Author Organization [facility] Address [facility] [place] [address] Care Team Providers Care Gun Examiner Name Role Phone Duong Deacon Wells APRN Primary Care Provider +1- [phone] Encounter Details Date Type Department Care Team [...] 9:00 AM EDT Office [place] [address] Dion Barlow MD [facility] [place] [address] 09/01/2024 9:40 AM EDT Office Visit Cardiology at [address] [phone] Franky Shaver MD [facility] [place] [address] 09/01/2024 11:20 AM EDT Office Visit Dermatology at [facility] [address] [place] [address] Gómez Mercer MD [facility] DR EDDIE [place] [address] 09/21/2024 2:45 PM EDT Office Visit [facility] [place] [phone] Trung Hoyos MD [facility] [place] [address] documented as of this encounter Visit Diagnoses Not on filedocumented in this encounter Care Teams Gun Examiner Relationship Specialty Start Date End Date Deacon Watters, JAZMINE [address] [place] [address] PCP - General Family Medicine 02/17/22 documented as of this encounter
--- OUTSIDE RECORDS SUMMARY | 2024-07-11 11:13 | XMS_ITS | Encounter Summary ---
Author Organization [facility] Address [facility] [place] [address] Care Team Providers Care Pyroglazer Name Role Phone Deacon Watters APRN Primary Care Provider +1- [phone] Reason for Referral * Physical Therapy (Routine) - Closed Specialty Diagnoses / Procedures Referred By Contac t Referred To Contact Physical Therapy Diagnoses Spondylosis of cervical region without myelopathy or radiculopathy Santiago Morales PA [facility] [place] [address] Physical Therapy, [address] [place] [address] Referral ID Status Reason Start Date Expiration Date V isits Requested Visits Authorized [id number] Closed Evaluate and Treat 01/07/2024 07/05/2024 12 12 Reason for Visit * Reason Comments Neck Pain chronic neck pain/MR I 10/27/23 in [facility] * Consultation (Routine) - Closed Specialty Diagnoses / Procedures Referred By Contac t Referred To Contact [facility] Diagnoses Cervicalgia Other chronic pain chronic neck pain/MRI 10/27/23 @ [facility] Deacon Watters APRN [address] [place] [address] [facility] [place] [address] Referral ID Status Reason Start Date Expiration Date V isits Requested Visits Authorized [id number] Closed Consult, Test & Treat PCP Updated and/or Approved 11/11/2023 05/10/2024 1 1 Encounter Details Date Type Department Care Team (Latest Contact Info) Description 01/07/2024 8:45 AM EST Office Visit [place] [address] Santiago Morales PA [facility] [place] [address] Spondylosis of cervical region without myelopathy or [...] the [facility] for [facility] @ [facility] for evaluation. Chief Complaint: Neck pain HPI: [...] light touch. Motor exam shows 4/5 left kitchen clerk strength; otherwise 5/5 throughout. Negativehoffman bilaterally. Imaging: [...] neck pain. He has some left hand kitchen clerk weakness but otherwise is neuro intact. Imaging [...] 9:00 AM EDT Office [place] [address] Dion Barlow MD [facility] [place] [address] 09/01/2024 9:40 AM EDT Office Visit Cardiology at [address] [address] Franky Shaver MD [facility] [place] [address] 09/01/2024 11:20 AM EDT Office Visit Dermatology at [address] [place] [address] Gómez Mercer MD [facility] [place] [address] 09/21/2024 2:45 PM EDT Office Visit [facility] [place] [address] Trung Hoyos MD [facility] [place] [address] Scheduled Referrals Name Type Priority Associated Diagnoses Orde r Schedule Referral to Physical Therapy Outpatient Referral Routine Spondylosis of cervical region without myelopathy or radiculopathy Ordered: 01/07/2024 documented as of this encounter Visit Diagnoses Diagnosis Spondylosis of cervical region without myelopathy or radiculopathy Cervical spondylosis without myelopathy documented in this encounter Care Teams Pyroglazer Relationship Specialty Start Date End Date Deacon Watters APRN [address] [place] [address] [address] [place] [address] PCP - General Family Medicine 02/17/22 documented as of this encounter
--- OUTSIDE RECORDS SUMMARY | 2024-07-11 11:13 | XMS_ITS | Encounter Summary ---
Author Organization [facility] Address [facility] [place] [address] Care Team Providers Care Logistics Operations Director Name Role Phone Duong Deacon Wells APRN Primary Care Provider +1- [phone] Reason for Visit * Reason Comments Rash Encounter Details Date Type Department Care Team (Late st Contact Info) Description 06/07/2024 1:20 PM EDT Office Visit Dermatology at [facility] [address] [place] [address] Gómez Mercer MD [facility] [place] [address] Tinea cruris Social History Tobacco Use Types [...] weeks for Tinea Cruris []Note routed to police department secretary []Recall placed in scheduling system [x]Appointment scheduled at checkout Scribe attestation: Danyell Anton [facility] has performed the documentation for this encounter inthe presence of and acting as a scribe for Gómez Mercer MD. I performed the above scribed service and agree with the accuracy of the documentation in this encounter. Reviewed and signed by: Gómez Mercer MD Dermatology [facility] Patient seen and evaluated with staff printing film stripper: Maria G Padilla MD Dermatology [facility] * Maria G Padilla MD - 06/07/2024 [...] as documented. Maria G Padilla MD Staff Jewelry Bench Molder Department of Dermatology [facility] documented in this encounter Plan of Treatment Upcoming Encounters Date Type Department Care Team (Late st Contact Info) Description 08/15/2024 9:00 AM EDT Office [place] [address] Dion Barlow MD [facility] [place] [address] 09/01/2024 9:40 AM EDT Office Visit Cardiology at [address] [phone] Franky Shaver MD [facility] [place] [address] 09/01/2024 11:20 AM EDT Office Visit Dermatology at [facility] [address] [place] [address] Gómez Mercer MD [facility] DR EDDIE SANCHE[facility] [address] 09/21/2024 2:45 PM EDT Office Visit [place] [address] Trung Hoyos MD [facility] [address] [place] [address] documented as of this encounter Visit Diagnoses Diagnosis Tinea cruris Dermatophytosis of groin and perianal area documented in this encounter Additional Health Concerns Infection Onset Date Last Indicated Resolved Time Rule Out C. difficile 06/07/2024 06/06/20242023 2:27 PM EDT documented as of this encounter Care Teams Logistics Operations Director Relationship Specialty Start Date End Date Deacon Watters APRN [address] [place] [address] PCP - General Family Medicine 02/17/22 documented as of this encounter
--- OUTSIDE RECORDS SUMMARY | 2024-07-11 11:13 | XMS_ITS | Encounter Summary ---
Author Organization [facility] [place] [address] Care Team Providers Care Pear Picker Name Role Phone Deacon Watters APRN Primary Care Provider +1- [phone] Encounter Details Date Type Department Care Team (Late st Contact Info) Description 10/27/2023 Ancillary Procedure [place] [address] Deacon Watters APRN [address] [place], [place] [address] Social History Tobacco Use Types Packs/Day Years [...] 9:00 AM EDT Office [place] [address] Dion Barlow MD [facility] [place] [address] 09/01/2024 9:40 AM EDT Office Visit Cardiology at [address] [place] [address] Franky Shaver MD [facility] [place] [address] 09/01/2024 11:20 AM EDT Office Visit Dermatology at [facility] [address] [place] [address] Gómez Mercer MD [facility] DR EDDIE [place] [address] 09/21/2024 2:45 PM EDT Office Visit [place] [address] Trung Hoyos MD [facility] [place] [address] documented as of this encounter Procedures Procedure Name Priority Date/Time Associated Diagnosis Comments FILM LIBRARY STORAGE ONLY MR SPINE Routine 10/27/2023 12:00 AM EST documented in this encounter Results * Film Library- Storage Only MR Spine (10/27/2023 12:00 AM EST) Narrative [facility] - 11/11/2023 10:39 AM EST This exam is auto-finalizing. It's purpose is for storage only. Deacon Watters APRN IMG FILM LIBRARY O RDERABLES [place] documented in this encounter Visit Diagnoses Not on filedocumented in this encounter Care Teams Pear Picker Relationship Specialty Start Date End Date Deacon Watters APRN [address] [place] [address] PCP - General Family Medicine 02/17/22 documented as of this encounter
--- OUTSIDE RECORDS SUMMARY | 2024-07-11 11:13 | XMS_ITS | Encounter Summary ---
Author Organization [facility] Address [facility] [place] [address] Care Team Providers Care Bone Grinder Name Role Phone DuongVeliakip Wells APRN Primary Care Provider +1- [phone] Encounter Details Date Type Department Care Team (Late st Contact Info) Description 03/02/2024 2:45 PM EDT Office Visit Dermatology at [facility] [address] [place] [address] Matti Bland MD [facility] DR EDDIE SANCHE[place] [address] Visit for suture removal Social History Tobacco [...] 2. Follow up with referring provider or criminal records technician for skin exams. 3. Follow up with Dr. Keller: as needed Note initiated and signed by Inge Forte LPN documented in this encounter Plan of Treatment Upcoming Encounters Date Type Department Care Team (Late st Contact Info) Description 08/15/2024 9:00 AM EDT Office Visit [place] [address] Dion Barlow MD [facility] [place] [address] 09/01/2024 9:40 AM EDT Office Visit Cardiology at [address] [phone] Franky Shaver MD [facility] [place] [address] 09/01/2024 11:20 AM EDT Office Visit Dermatology at [facility] [address] [place] [address] Gómez Mercer MD [facility] DR EDDIE SANCHE[place] [address] 09/21/2024 2:45 PM EDT Office Visit [facility] [place] [address] Trung Hoyos MD [facility] [place] [address] documented as of this encounter Visit Diagnoses Diagnosis Visit for suture removal Encounter for removal of sutures documented in this encounter Care Teams Bone Grinder Relationship Specialty Start Date End Date Deacon Watters, JAZMINE [address] [place] [address] PCP - General Family Medicine 02/17/22 documented as of this encounter
--- OUTSIDE RECORDS SUMMARY | 2024-07-11 11:13 | XMS_ITS | Encounter Summary ---
Author Organization [facility] [place] [address] Care Team Providers Care Improvement Coordinator Name Role Phone Deacon Watters APRN Primary Care Provider +1- [phone] Encounter Details Date Type Department Care Team (Latest Contact Info) Description 06/07/2024 12:55 PM EDT - 06/07/2024 11:59 PM EDT [place] [address] Left sided colitis without complications Discharge Disposition: [...] by mouth daily. 90 tablet 3 11/22/2012 mupirocin (Bactroban) 2 % OintmentIndications:Vi sit for suture removal Apply topically once daily for 10 days to healing graft area. 22 g 03/02/2024 07/04/2024 dicyclomine (Bentyl) 20 mg tablet TAKE ONE TABLET BY MOUTH EVERY 8 HOURS NEEDED 90 tablet 5 02/23/2024 07/04/2024 budesonide (Uceris) 2 mg/actuation FoamIndications:Left sided colitis without complications 2mg rectally nightly for 2 weeks, then continue every other night (four nights per week) 133.6 g 5 12/07/2023 06/30/2024 metroNIDAZOLE (FlagyL) 500 mg Tablet Take 1 tablet by mouth 2 times daily. 20 tablet 10/06/2022 06/30/2024 atorvastatin (Lipitor) 20 mg Tablet Take 20 mg by mouth daily. 07/04/2024 nystatin (Mycostatin) 100,000 unit/mL Suspension Place 500,000 Units inside cheek. 07/08/2021 06/30/2024 sulfamethoxazole-trime thoprim DS (Bactrim DS) 800-160 mg Tablet Take 1 tablet by mouth. 07/19/2021 07/04/2024 SUMAtriptan (Imitrex) 50 mg Tablet TAKE 1 TABLET BY MOUTH 1 TIME NEEDED FOR MIGRAINE HEADACHE 01/13/2022 07/04/2024 propranolol (INDERAL LA) 80 mg Capsule,Sustained Action 24 hr take 2 capsules by mouth daily for MIGRAINE PROPHYLAXIS 0 04/06/2017 07/04/2024 lisinopril (PRINIVIL;ZESTRIL) 10 mg Tablet take 1 tablet by mouth once daily 0 04/07/2017 06/30/2024 omeprazole (PRILOSEC) 20 mg capsule Take 40 mg by mouth daily. 07/04/2024 documented as of this encounter Plan of Treatment Upcoming Encounters Date Type Department Care Team (Late st Contact Info) Description 08/15/2024 9:00 AM EDT Office Visit [place] [address] Dion Barlow MD [facility] [place] [address] 09/01/2024 9:40 AM EDT Office Visit Cardiology at [address] [phone] Franky Shaver MD [facility] [place] [address] 09/01/2024 11:20 AM EDT Office Visit Dermatology at [address] [address] Gómez Mercer MD [facility] [place] [address] 09/21/2024 2:45 PM EDT Office Visit [facility] [place] [phone] Trung Hoyos MD [facility] [place] [address] documented as of this encounter Procedures Procedure [...] 1 EIA Negative for Shiga Toxin 2 [facility] Stool 06/07/2024 9:00 AM EDT 06/07/2024 1:32 PM EDT Narrative Resulting Agency Comment Spec In Lab Marcelle Weinberg STEREOTYPE FINISHER MICROBIOLOGY - GE NERAL ORDERABLES Performing Organization Address City/[facility]/ZIP Co de Phone Number [facility] [place] [address] * Campylobacter Antigen (06/07/2024 9:00 AM EDT) Campylobacter Ag Immunoassay Negative for Campylobacter Antigen [facility] Stool 06/07/2024 9:00 AM EDT 06/07/2024 1:32 PM EDT Narrative Resulting Agency Comment Spec In Lab Marcelle Weinberg STEREOTYPE FINISHER MICROBIOLOGY - GE NERAL ORDERABLES Performing Organization Address City/[facility]/ZIP Co de Phone Number [facility] [place] [address] * Stool culture (06/07/2024 9:00 AM EDT) Stool Culture No enteric pathogens isolated [facility] Stool 06/07/2024 9:00 AM EDT 06/07/2024 1:32 PM EDT Narrative Resulting Agency Comment Spec In Lab Marcelle Weinberg STEREOTYPE FINISHER MICROBIOLOGY - GE NERAL ORDERABLES Performing Organization Address City/[facility]/ZIP Co de Phone Number [facility] [place] [address] documented in this encounter Visit Diagnoses Diagnosis Left sided colitis without complications Left sided ulcerative (chronic) colitis documented in this encounter Additional Health Concerns Infection Onset Date Last Indicated Resolved Time Rule Out C. difficile 06/07/2024 06/06/20242023 2:27 PM EDT documented as of this encounter Care Teams Improvement Coordinator Relationship Specialty Start Date End Date Deacon Watters APRN [address] [place] [address] PCP - General Family Medicine 02/17/22 documented as of this encounter
--- OUTSIDE RECORDS SUMMARY | 2024-07-11 11:13 | XMS_ITS | Encounter Summary ---
Author Organization [facility] [place] [address] Care Team Providers Care Vendor Representatives Name Role Phone Deacon Watters Priscilla LUCERO Primary Care Provider +1- [phone] Reason for Visit * Reason Onset Date Comments Medication Refill 09/21/2023 Encounter Details Date Type Department Care Team (Late st Contact Info) Description 09/21/2023 Refill [place] [phone] Dion Barlow MD [facility] [place] [address] Social History Tobacco Use Types Packs/Day Years [...] 9:00 AM EDT Office [place] [address] Dion Barlow MD [facility] [place] [address] 09/01/2024 9:40 AM EDT Office Visit Cardiology at [address] [place] [address] Franky Shaver MD [facility] [place] [address] 09/01/2024 11:20 AM EDT Office Visit Dermatology at [facility] [address] [place] [address] Gómez Mercer MD [facility] [place] [address] 09/21/2024 2:45 PM EDT Office Visit [facility] [place] [address] Trung Hoyos MD [facility] [place] [address] documented as of this encounter Visit Diagnoses Not on filedocumented in this encounter Care Teams Vendor Representatives Relationship Specialty Start Date End Date Deacon Watters, MEDICAL BILLER CODER [address] [place] [address] PCP - General Family Medicine 02/17/22 documented as of this encounter
--- OUTSIDE RECORDS SUMMARY | 2024-07-11 11:13 | XMS_ITS | Encounter Summary ---
Author Organization [facility] [place] [address] Care Team Providers Care Doll Wigs Hackler Name Role Phone Deacon Watters APRN Primary Care Provider +1- [phone] Encounter Details Date Type Department Care Team (Late st Contact Info) Description 06/29/2024 7:25 PM EDT Ancillary Procedure [place] [phone] Deacon Watters APRN [address] [place] [address] Social History Tobacco Use Types Packs/Day Years [...] 9:00 AM EDT Office Visit [place] [address] Dion Barlow MD [facility] [place] [place] [address] 09/01/2024 9:40 AM EDT Office Visit Cardiology at [address] [place] [address] [facility] [address] 09/01/2024 11:20 AM EDT Office Visit Dermatology at [facility] [address] [place] [address] [address]cer [address] [facility] [place] [address] 09/21/2024 2:45 PM EDT Office Visit Pain and Spine Center at [facility] [place] [address] [facility] [place] [address] documented as of this encounter Procedures Procedure Name Priority Date/Time Associated Diagnosis Comments FILM LIBRARY STORAGE ONLY DX CHEST Routine 06/29/2024 7:22 PM EDT documented in this encounter Results * Film Library- Storage Only DX Chest (06/29/2024 7:22 PM EDT) Narrative [facility] - 06/29/2024 7:22 PM EDT This exam is auto-finalizing. It's purpose is for storage only. Deacon Watters APRN IMG FILM LIBRARY O RDERABLES [place], [place] documented in this encounter Visit Diagnoses Not on filedocumented in this encounter Care Teams Doll Wigs Hackler Relationship Specialty Start Date End Date Deacon Watters APRN [address] [place] [address] PCP - General Family Medicine 02/17/22 documented as of this encounter
--- OUTSIDE RECORDS SUMMARY | 2024-07-11 11:13 | XMS_ITS | Encounter Summary ---
Author Organization [facility] [place] [address] Care Team Providers Care Nipple Machine Operator Name Role Phone Deacon Watters Priscilla LUCERO Primary Care Provider +1- [phone] Reason for Visit * Reason Comments Medication Refill Encounter Details Date Type Department Care Team (Late st Contact Info) Description 01/11/2024 [place] [address] Dion Barlow MD [facility] [place] [address] Social History Tobacco Use Types Packs/Day Years [...] 9:00 AM EDT Office [place] [address] Dion Barlow MD [facility] [place] [address] 09/01/2024 9:40 AM EDT Office Visit Cardiology at [address] [place] [address] Franky Shaver MD [facility] [place] [address] 09/01/2024 11:20 AM EDT Office Visit Dermatology at [facility] [address] [place] [address] Gómez Mercer MD [facility] EDD[place] [address] 09/21/2024 2:45 PM EDT Office Visit [place] [address] Trung Hoyos MD [facility] [place] [address] documented as of this encounter Visit Diagnoses Not on filedocumented in this encounter Care Teams Nipple Machine Operator Relationship Specialty Start Date End Date Deacon Watters, ENROLLMENT COUNSELOR [address] [place] [address] PCP - General Family Medicine 02/17/22 documented as of this encounter
--- OUTSIDE RECORDS SUMMARY | 2024-07-11 11:13 | XMS_ITS | Encounter Summary ---
Author Organization [facility] Address [facility] [place] [address] Care Team Providers Care Medical Research Assistant Name Role Phone Duong Deacon Wells APRN Primary Care Provider +1- [phone] Encounter Details Date Type Department Care Team (Late st Contact Info) Description 01/20/2024 10:15 AM EST - 01/20/2024 11:00 AM EST [place] [address] Anthony Hamlin MD [facility] [place] [address] COLONOSCOPY FLEXIBLE, WITH BX (WRVU 3.56) Social [...] encounter Discharge Instructions * Discharge Instructions* Dari Price RN - 01/20/2024 10:58 AM EST Colonoscopy: [...] occurs, please contact your Doctor. Please call [phone] before 8pm Mon-Fri with problems, questions or concerns. If you call after 8pm or on weekends, call the Hospital at [phone] and ask to speak to the Tunnel Kiln Repairer activities concierge and the hack saw operator will contact that person for you. When should you call for help? Call [phone] anytime you think you may need emergency [...] any problems. Where can you learn more? [facility] View your After Visit Summary and more online at [email or web address] If you would like to provide [...] cost to you. Content Version: 12.2 ?? [id number] [employer]. Care instructions adapted under license by [facility]. If you have questions about a medical condition or this instruction, always ask your healthcare professional. [employer] disclaims any warranty or liability for your use of this information. documented in this encounter Medications at Time of Discharge Medication Sig Dispensed Refills Start Date End Date sulfaSALAzine (Azulfidine) 500 mg tablet Take 3 [...] by mouth daily. 90 tablet 3 11/22/2012 dicyclomine (Bentyl) 20 mg tablet TAKE ONE TABLET BY MOUTH EVERY 8 HOURS NEEDED 50 tablet 2 01/12/2024 02/23/2024 budesonide (Uceris) 2 mg/actuation FoamIndications:Left sided [...] daily. 07/04/2024 documented as of this encounter H&P Notes [...] 9:00 AM EDT Office [place] [address] Dion Barlow MD [facility] [place] [address] 09/01/2024 9:40 AM EDT Office Visit Cardiology at [address] [phone] Franky Shaver MD [facility] [place] [address] 09/01/2024 11:20 AM EDT Office Visit Dermatology at [address] [phone] Gómez Mercer MD [facility] DR EDD[place] [address] 09/21/2024 2:45 PM EDT Office Visit [place] [phone] Trung Hoyos MD [facility] [place] [address] documented as of this encounter Procedures Procedure [...] Routine 01/20/2024 10:24 AM EST Colonoscopy, Biopsy ([id number]) 01/20/2024 10:09 AM EST Left sided colitis without complications POCT GLUCOSE Routine 01/20/2024 10:05 AM EST POCT FINGERSTICK GLUCOSE Routine 01/20/2024 10:05 AM EST COLONOSCOPY Routine 01/20/2024 10:01 AM EST documented in this encounter Results * Specimen to Pathology (01/20/2024 10:48 AM EST) AP Specimen 01/20/2024 10:4 8 AM EST 01/20/2024 10:48 AM EST Narrative [facility] - 01/20/2024 10:48 AM EST Specimen requisition ordered. ??Separate Pathology report to follow Anthony Hamlin MD PATHOLOGY/CYTOLOGY O CEE Performing Organization Address [facility] Co de Phone Number [facility] [place] [place] [address] * Specimen to Pathology (01/20/2024 10:48 AM EST) AP Specimen 01/20/2024 10:4 8 AM EST 01/20/2024 10:[address] [facility] - 01/20/2024 10:48 AM EST Specimen requisition ordered. ??Separate Pathology report to follow Anthony Hamlin MD PATHOLOGY/CYTOLOGY O CEE [facility] [place] [address] * Specimen to Pathology (01/20/2024 10:48 AM EST) AP Specimen 01/20/2024 10:4 8 AM EST 01/20/2024 10:[address] [facility] - 01/20/2024 10:48 AM EST Specimen requisition ordered. ??Separate Pathology report to follow Anthony Hamlin MD PATHOLOGY/CYTOLOGY O CEE Performing Organization Address City/[facility]/[place] [address] * Specimen to Pathology (01/20/2024 10:48 AM EST) AP Specimen 01/20/2024 10:4 8 AM EST 01/20/2024 10:48 AM EST Narrative [facility] - 01/20/2024 10:48 AM EST Specimen requisition ordered. ??Separate Pathology report to follow Anthony Hamlin MD PATHOLOGY/CYTOLOGY O CEE Performing Organization Address [facility] [place] [place] [address] * Specimen to Pathology (01/20/2024 10:48 AM EST) AP Specimen 01/20/2024 10:4 8 AM EST 01/20/2024 10:48 AM EST Narrative [facility] - 01/20/2024 10:48 AM EST Specimen requisition ordered. ??Separate Pathology report to follow Anthony Hamlin MD PATHOLOGY/CYTOLOGY O CEE Performing Organization Address [facility] Co de Phone Number [facility] [place] [address] * Specimen to Pathology (01/20/2024 10:48 AM EST) AP Specimen 01/20/2024 10:4 8 AM EST 01/20/2024 10:48 AM EST Narrative [facility] - 01/20/2024 10:48 AM EST Specimen requisition ordered. ??Separate Pathology report to follow Anthony Hamlin MD PATHOLOGY/CYTOLOGY O CEE Performing Organization Address City/[facility] [place] [place] [address] * Surgical Pathology Report (01/20/2024 10:24 AM EST) Final Diagnosis [id number] ? Location: 4T; EA12; A The signing [...] for dysplasia. CR-PX Electronically signed by: ?Candace AHRVEY, Dilip Verified: ??01/29/2024 12:04 ??Pathologist Performed at: ??-[facility] Dept. of Pathology, [place] [address] Customer Relations Assistant: Joaan Soler MD, FCAP, ??CLIA Certificate: [id number] SPECIMEN(S) SUBMITTED A - right colon, biopsy [...] labeled F1. ??sns 01/29/2024 12:04 PM EST [facility] GI Biopsy 01/20/2024 10:2 [...] EST Anthony Hamlin MD PATHOLOGY/CYTOLOGY O RDERABLES [facility] [place] [address] [facility] [place] [address] * POCT Glucose (01/20/2024 10:05 AM EST) Glucose, POC 114 65 - 199 mg/dL [facility] Comment: Supplemental ranges: <140 mg/dL before meals <180 mg/dL all other times of the day Blood 01/20/2024 10:0 5 AM EST 01/20/2024 10:05 AM EST Anthony Hamlin MD POINT OF CARE TEST O RDERABLES [facility] [place] [address] * POCT Fingerstick Glucose (01/20/2024 10:05 AM EST) Glucose, POC 114 60 - 199 mg/dl 01/20/2024 10:0 5 AM EST Anthony Hamlin MD POINT OF CARE TEST O RDERABLES * COLONOSCOPY (01/20/2024 10:01 AM EST) COLONOSCOPY [facility] Procedure Date: 01/20/2024 10:01 AM ? Patient Name: Brian Rodriguez ? N: [id number] ? Date of : 1950 ? Age: 73 ? Order #: [id number] ? Instrument Name: [id number] ? Procedure: ? Colonoscopy Indications: ? Follow-up [...] ? physician, the nurse and the ? ground water technician in the pre-procedure ? area in [...] 01/20/2024 10:0 1 AM EST Deacon Watters GEOSPATIAL EXTRACTOR ANALYSIS GENERAL SURGICAL O RDERABLES [employer]OVATION documented in [...] RN) documented in this encounter Care Teams Medical Research Assistant Relationship Specialty Start Date End Date Deacon Watters APRN [address] [place] [address] [address] [place] [address] PCP - General Family Medicine 02/17/22 documented as of this encounter
--- OUTSIDE RECORDS SUMMARY | 2024-07-11 11:13 | XMS_ITS | Encounter Summary ---
Author Organization [facility] Address [facility] [place] [address] Care Team Providers Care Adjutant General Name Role Phone Deacon Watters APRN Primary Care Provider +1- [phone] Reason for Referral * Consultation (Routine) - Closed Specialty Diagnoses / Procedures Referred By Perri t Referred To Contact Dermatology Diagnoses Basal cell carcinoma (BCC), unspecified site Becca Villegas APRN [address] [place] [address] [place] [address] Kingsley Finn MD [facility] DR ED[place] [address] Referral ID Status Reason Start Date Expiration Date V isits Requested Visits Authorized [id number] Closed Consult, Test & Treat PCP Updated and/or Approved 01/04/2024 01/03/2025 1 1 Encounter Details Date Type Department Care Team (Late st Contact Info) Description 01/04/2024 Transcribe Orders eDH Incoming Referrals [phone] Becca Villegas [address] [place], [place] [id number] Basal cell carcinoma (BCC), unspecified site (Primary [...] 9:00 AM EDT Office Visit [place] [address] Dion Barlow MD [facility] [place] [address] 09/01/2024 9:40 AM EDT Office Visit Cardiology at [address] [phone] Franky Shaver MD [facility] [place] [address] 09/01/2024 11:20 AM EDT Office Visit Dermatology at [address] [place] [address] Gómez Mercer MD [facility] DR [place] [address] 09/21/2024 2:45 PM EDT Office Visit [facility] [place] [address] Trung Hoyos MD [facility] [place] [address] Scheduled Referrals Name Type Priority Associated Diagnoses Orde r Schedule Referral to Dermatology Outpatient Referral Routine Basal cell carcinoma (BCC), unspecified site Ordered: 01/04/2024 documented as of this encounter Visit Diagnoses Diagnosis Basal cell carcinoma (BCC), unspecified site- Primary documented in this encounter Care Teams Adjutant General Relationship Specialty Start Date End Date Deacon Watters, JAZMINE [address] [place] [address] PCP - General Family Medicine 02/17/22 documented as of this encounter
--- OUTSIDE RECORDS SUMMARY | 2024-07-11 11:13 | XMS_ITS | Encounter Summary ---
Author Organization [facility] Address [facility] [place] [address] Care Team Providers Care Cycle Repairer Name Role Phone Duong Deacon Wells APRN Primary Care Provider +1- [phone] Reason for Visit * Reason Comments Basal Cell Carcinoma Encounter Details Date Type Department Care Team (Latest Contact Info) Description 02/17/2024 8:00 AM EDT Procedure visit Dermatology at [facility] [address] [place] [address] Kingsley Finn MD [facility] DR EDDIE [place] [address] Basal cell carcinoma of right side of [...] is performed when alternative procedures such as nuwu-[id number] stitching is not optimal. Your graft may [...] the first week unless told differently. Some radiology technician may need to be delayed or delegated [...] as often as is recommended by your line service supervisor, for new skin cancers. This is once [...] it. If after hours, please call the paving plant operator or [phone] and ask for the line service supervisor on-call. If you have any non-urgent questions or concerns, please feel free to call my office or contact me through our patient portal, [employer], at [email or web address] How to contact us during business hours Dermatology at [facility] [address]: Mohs scheduling or Mohs follow-up appointments: [phone] documented in this encounter Progress Notes * [...] and follow up with his or her line service supervisor or other skin provider. 5. Discussed avoiding [...] Reviewed and signed by: Kingsley Finn Dermatology [facility] * Kingsley Finn MD - 02/17/2024 8:00 AM EDT Mohs micrographic Surgery Operative Report Patient name: Brian Rodriguez : 1950 Date: 02/17/2024 Staff Surgeon and Pathologist: Kingsley Finn MD PhD Nursing/General Adjuster(s): Paula Baez RN, Zuly Morales RN, Barbara Platt MANAGER ENVIRONMENTAL, Olga Yostegand-Kaylin ROBINS, Vladimir Ward CMA, Inge ArellanoCritical Access HospitalMooers Forks EKG/ECG TECHNICIAN, Leah PATEL Softwood Faller (s): Vladimir Alejandro CMA Pre-operative diagnosis: Basal [...] The site was confirmed with the patient/authorized student services representative/referring physician and/or a photograph form time [...] Surgery and Dermatologic Oncology Department of Dermatology [address] [place] [address] OPERATIVE REPORT (REPAIR) Patient Name: Brian Rodriguez Age: 73 y.o. : 1950 Date: 02/17/2024 Staff Surgeon: Kingsley Finn MD PhD Assistants: Zuly Morales RN; Shannen Garcia MD; Magda Edouard MD Diagnosis: Status post Mohs micrographic surgery defect/wound Site: right nasal dorsum Final Defect Size prior to repair: 4 x 2.9 cm Donor site: right nasolabial fold INDICATION: repair and sabianist of anatomy/function PROCEDURE: Full-thickness skin graft A [...] Rodriguez Staff Surgeon: Kingsley Finn MD PhD Head Up Operator Helper(s): same as above quality assurance assistant: Zuly Morales RN; Magda Edouard MD; Shannen Garcia MD Date: 02/17/2024 Clinical Diagnosis: skin and soft tissue defect status post Mohs micrographic surgery Location/Site: right nasal dorsum Indication: repair of wound with sabianist of anatomy/function Defect size to be repaired: [...] Surgery and Dermatologic Oncology Department of Dermatology [address] [place], [place] [id number] Note initiated by Zuly Morales RN. Zuly Morales RN has performed the documentation for this encounter in the presence of and acting as a scribe for Dr. Finn I performed the above scribed service and agree with the accuracy of the documentation in this encounter. Reviewed and signed by: Kingsley Finn Dermatology [facility] documented in this encounter Plan of Treatment Upcoming Encounters Date Type Department Care Team (Late st Contact Info) Description 08/15/2024 9:00 AM EDT Office [place] [address] Dion Barlow MD [facility] [place] [address] 09/01/2024 9:40 AM EDT Office Visit Cardiology at [address] [place] [address] Franky Shaver MD [facility] [place] [address] 09/01/2024 11:20 AM EDT Office Visit Dermatology at [facility] [address] [place] [address] Gómez Mercer MD [facility] [place] [address] 09/21/2024 2:45 PM EDT Office Visit Pain and Spine Center at [facility] [place] [phone] Trung Hoyos MD [facility] [place] [address] documented as of this encounter Visit Diagnoses Diagnosis Basal cell carcinoma of right side of nose Basal cell carcinoma of skin of other and unspecified parts of face documented in this encounter Care Teams Cycle Repairer Relationship Specialty Start Date End Date Deacon Watters, JAZMINE [address] [facility] 1 [place] [address] PCP - General Family Medicine 02/17/22 documented as of this encounter
--- OUTSIDE RECORDS SUMMARY | 2024-07-11 11:13 | XMS_ITS | Encounter Summary ---
Author Organization [facility] Address [facility] [place] [address] Care Team Providers Care Glass Frame Fitter Name Role Phone DuongVeliakip Wells APRN Primary Care Provider +1- [phone] Encounter Details Date Type Department Care Team [...] 9:00 AM EDT Office [place] [address] Dion Barlow MD [facility] [place] [address] 09/01/2024 9:40 AM EDT Office Visit Cardiology at [address] [phone] Franky Shaver MD [facility] [place] [address] 09/01/2024 11:20 AM EDT Office Visit Dermatology at [facility] [address] [place] [address] Gómez Mercer MD [facility] DR [place] [address] 09/21/2024 2:45 PM EDT Office Visit Pain and Spine Center at [facility] [place] [address] Trung Hoyos MD [facility] [place] [address] documented as of this encounter Visit Diagnoses Not on filedocumented in this encounter Care Teams Glass Frame Fitter Relationship Specialty Start Date End Date Deacon Watters, JAZMINE [address] [place] [address] PCP - General Family Medicine 02/17/22 documented as of this encounter
--- OUTSIDE RECORDS SUMMARY | 2024-07-11 11:13 | XMS_ITS | Encounter Summary ---
[place] [address] Care Team Providers Care Routing Machine Operator Name Role Phone Deacon Watters APRN Primary Care Provider +1- [phone] Reason for Referral * Consultation (Routine) - Closed Specialty Diagnoses / Procedures Referred By Contwillard t Referred To Contact Pain and Spine Center Diagnoses Cervicalgia Other chronic pain chronic neck pain/MRI 10/27/23 @ [facility] Deacon Watters APRN [address] [place] [address] [facility] [place] [address] Referral ID Status Reason Start Date Expiration Date V isits Requested Visits Authorized [id number] Closed Consult, Test & Treat PCP Updated and/or Approved 11/11/2023 05/10/2024 1 1 Encounter Details Date Type Department Care Team (Late st Contact Info) Description 11/18/2023 Transcribe Orders eD Incoming Referrals [phone] Deacon Watters APRN [address] [place], [place] [address] Cervicalgia; Other chronic pain Social History Tobacco [...] 9:00 AM EDT Office Visit [place] [address] Dion Barlow MD [facility] [place] [address] 09/01/2024 9:40 AM EDT Office Visit Cardiology at [address] [address] Franky Shaver MD [facility] [place] [address] 09/01/2024 11:20 AM EDT Office Visit Dermatology at [place] [address] [place] [address] Gómez Mercer MD [facility] [place] [address] 09/21/2024 2:45 PM EDT Office Visit [facility] [place] [address] Trung Hoyos MD [facility] [place] [address] Scheduled Referrals Name Type Priority Associated Diagnoses Orde r Schedule Referral to Spine Center Outpatient Referral Routine Cervicalgia Other chronic pain Ordered: 11/18/2023 documented as of this encounter Visit Diagnoses Diagnosis Cervicalgia Other chronic pain documented in this encounter Care Teams Routing Machine Operator Relationship Specialty Start Date End Date Deacon Watters, SLIVER LAP MACHINE TENDER [address] [place] [address] PCP - General Family Medicine 02/17/22 documented as of this encounter
--- OUTSIDE RECORDS SUMMARY | 2024-07-11 11:13 | XMS_ITS | Encounter Summary ---
[place] [address] Care Team Providers Care Construction Manager Name Role Phone Deacon Watters APRN Primary Care Provider +1- [phone] Encounter Details Date Type Department Care Team (Latest Contact Info) Description 06/06/2024 12:56 PM EDT - 06/06/2024 11:59 PM EDT Hospital [place] [address] Left sided colitis without complications Discharge Disposition: [...] 9:00 AM EDT Office Visit [place] [address] Dion Barlow MD [facility] [place] [address] 09/01/2024 9:40 AM EDT Office Visit Cardiology at [address] [phone] Franky Shaver MD [facility] [place] [address] 09/01/2024 11:20 AM EDT Office Visit Dermatology at [place] [address] [place] [phone] Gómez Mercer MD [facility] [place] [address] 09/21/2024 2:45 PM EDT Office Visit [facility] [place] [address] Trung Hoyos MD [facility] [place] [address] documented as of this encounter Procedures Procedure Name Priority Date/Time Associated Diagnosis Comments HC C. DIFF QUIK CHEK ANTIGEN Routine 06/06/2024 5:30 PM EDT Left sided colitis without complications CALPROTECTIN,STOOL Routine 06/06/2024 5: 30 PM EDT Left sided colitis without complications documented in this encounter Results * (ABNORMAL) Calprotectin, Stool (06/06/2024 5:30 PM EDT) Calprotectin, Stool 112(H) <=79 mcg/g [facility] Comment: Calprotectin Concentration ? Interpretation ? < 80 mcg/g ?Normal ? 80 ? 160 mcg/g ?Borderline ? >160 mcg/g ?Elevated Stool 06/06/2024 5:30 PM EDT 06/07/2024 1:07 PM EDT Narrative Resulting Agency Comment Spec In Lab Marcelle Weinberg MECHANICAL ENGINEERING DIRECTOR BODY FLUIDS AND S TOOLS ORDERABLES Performing Organization Address [facility] Co de Phone Number [facility] [place] [address] * C. Difficile Screen (06/06/2024 5:30 PM EDT) C Diff Interp Negative Negative [facility] Comment: Ag/Tox Neg C. diff?? Negative Clostridium difficile is not present in the specimen. If patient is having diarrhea suspected to be from an infectious cause, then Soap & Water Contact Precautions are still required. Stool 06/06/2024 5:30 PM EDT 06/07/2024 1:32 PM EDT Narrative Resulting Agency Comment Spec In Lab Marcelle Weinberg MECHANICAL ENGINEERING DIRECTOR MICROBIOLOGY - GE NERAL ORDERABLES Performing Organization Address [facility] Co de Phone Number [facility] [place] [address] documented in this encounter Visit Diagnoses Diagnosis Left sided colitis without complications Left sided ulcerative (chronic) colitis documented in this encounter Care Teams Construction Manager Relationship Specialty Start Date End Date Deacon Watters APRN [address] [place], [place] [address] [address] [place] [address] PCP - General Family Medicine 02/17/22 documented as of this encounter
--- OUTSIDE RECORDS SUMMARY | 2024-07-11 11:13 | XMS_ITS | Encounter Summary ---
Author Organization [facility] Address [facility] [place] [address] Care Team Providers Care Studio Director Name Role Phone Deacon Watters APRN Primary Care Provider +1- [phone] Encounter Details Date Type Department Care Team (Late st Contact Info) Description 06/29/2024 [place] [phone] Social History Tobacco Use Types Packs/Day Years Used Date Smoking Tobacco: Former Cigarettes 4 30 1 12/01/1961 - 10/01/1992 Smokeless Tobacco: Former Chew Comments:Denies vaping Alcohol Use Standard Drinks/Week Comments Yes 0 (1 standard drink = 0.6 oz pur e alcohol) twice a year [facility] Utilities Answer Date Recorded In the past [...] any time in the past 12 [facility], were you homeless or living in a care home (including now)? No 07/01/2024 IPV Inpatient [...] 9:00 AM EDT Office [place] [address] Dion Barlow MD [facility] [place] [address] 09/01/2024 9:40 AM EDT Office Visit Cardiology at [address] [phone] Franky Shaver MD [facility] [place] [address] 09/01/2024 11:20 AM EDT Office Visit Dermatology at [facility] [address] [place] [address] Gómez Mercer MD [facility] DR EDDIE [place] [address] 09/21/2024 2:45 PM EDT Office Visit [facility] [place] [address] Trung Hoyos MD [facility] [place] [address] documented as of this encounter Procedures Procedure Name Priority Date/Time Associated Diagnosis Comments MISC EXTERNAL CARDIOLOGY RESULT Routine 06/29/2024 4:33 PM EDT documented in this encounter Results * External Cardiology Result (06/29/2024 4:33 PM EDT) Anatomical Region Laterality Modality Other Historical Provider EXTERNAL CARDIOLO GY RESULT documented in this encounter Visit Diagnoses Not on filedocumented in this encounter Care Teams Studio Director Relationship Specialty Start Date End Date Deacon Watters, JAZMINE [address] [place] [address] PCP - General Family Medicine 02/17/22 documented as of this encounter
--- OUTSIDE RECORDS SUMMARY | 2024-07-11 11:13 | XMS_ITS | Encounter Summary ---
Author Organization [facility] Address [facility] [place] [address] Care Team Providers Care Desk Manager Name Role Phone Deacon Watters APRN Primary Care Provider +1- [phone] Encounter Details Date Type Department Care Team (Latest Contact Info) Description 06/06/2024 8:00 AM EDT Office [place] [address] Marcelle Weinberg MANAGER OF FINANCIAL REPORTING [facility] [place] [address] Left sided colitis without complications Social History [...] for cramping - Repeat routine labs today( [facility] and submit stool calprotectin ( [facility]). - Follow up with Dermatology regarding skin [...] colitis Overview Note: Colonoscopy 04/08/10 (Dr. Gomes [facility]) - inflammation only within the rectum [...] ascending colon. Several HPs and one TA. [place] 03/2022 - [place] 1 limited to rectosigmoid, diverticulosis. No dysplasia TREATMENT: cortenemas, Asacol, Rowasa, prednisone, and imodium [place] 12/2023- Ileum was normal. [place] 1 inflammation [...] 114.7 kg (252 lb 14.4 oz) Vitals: 07/15/24 0748 BP: 152/70 Pulse: 62 SpO2: 100% [...] - 199 mg/dL Final COLONOSCOPY 01/20/2024 Final Value:[facility] Endoscopy Procedure Date: 01/20/2024 10:01 AM Patient Name: Brian Rodriguez Date of : 1950 Age: 73 Order #: [id number] Instrument Name: [id number] Procedure: Colonoscopy Indications: Follow-up of left-sided chronic ulcerative colitis Providers: Anthony Hamlin, Danyell Doyle, Marcos Friedman Referring MD: Davina Cárdenas MD Medicines: Midazolam [...] by the physician, the nurse and the retail service technician in the pre-procedure area in the [...] 10:01 AM Surgical Pathology Report 01/20/2024 Final Value:[id number] Location: 4T; EA12; A The signing pathologist [...] MD Verified: 01/29/2024 12:04 Pathologist Performed at: -[facility] Dept. of [place]ology, [facility] [address], [place] [address] Director Of Curriculum And Instruction: Joana Soler MD, [place], [place] Certificate: [id number] SPECIMEN(S) SUBMITTED A - right colon, biopsy [...] for cramping - Repeat routine labs today( [facility] and submit stool calprotectin ( [facility]). - Follow up with Dermatology regarding skin rash on your groin. - Follow up with Dr. Barlow in 4 months Please contact me if there are any further questions regarding the care of this patient. Shan Weinberg APRN [facility] Section of Gastroenterology and Hepatology [address] [address] documented in this encounter Plan of Treatment Upcoming Encounters Date Type Department Care Team (Late st Contact Info) Description 08/15/2024 9:00 AM EDT Office [place] [address] Dion Barlow MD [facility] [place] [address] 09/01/2024 9:40 AM EDT Office Visit Cardiology at [address] [place] [address] Franky Shaver MD [facility] [place] [address] 09/01/2024 11:20 AM EDT Office Visit Dermatology at [facility] [address] [place] [address] Gómez Mercer MD [facility] DR EDDIE [place] [address] 09/21/2024 2:45 PM EDT Office Visit [place] [address] Trung Hoyos MD [facility] [place] [address] documented as of this encounter Procedures Procedure [...] PM EDT) C Diff Interp Negative Negative [facility] Comment: Ag/Tox Neg C. diff?? Negative Clostridium difficile is not present in the specimen. If patient is having diarrhea suspected to be from an infectious cause, then Soap & Water Contact Precautions are still required. Stool 06/06/2024 5:30 PM EDT 06/07/2024 1:32 PM EDT Narrative Resulting Agency Comment Spec In Lab MonalisaDg Weinberg MANAGER OF FINANCIAL REPORTING MICROBIOLOGY - GE NERAL ORDERABLES Performing Organization Address [facility] Co de Phone Number [facility] [place] [address] * (ABNORMAL) Calprotectin, Stool (06/06/2024 5:30 PM EDT) Pathologist [facility] Calprotectin, Stool 112(H) <=79 mcg/g [facility] Comment: Calprotectin Concentration ? Interpretation ? < 80 mcg/g ?Normal ? 80 ? 160 mcg/g ?Borderline ? >160 mcg/g ?Elevated Stool 06/06/2024 5:30 PM EDT 06/07/2024 1:07 PM EDT Narrative Resulting Agency Comment Spec In Lab MonalisaDg Weinberg MANAGER OF FINANCIAL REPORTING BODY FLUIDS AND S TOOLS ORDERABLES Performing Organization Address [facility] de Phone Number [facility] [place] [address] * Differential, Automated (06/06/2024 9:04 AM EDT) Pathologist [facility] Neutrophil % 70.3 % [facility] Neutrophil Absolute 4.36 1.70 - 6.10 x10(3)/[facility] LAB[facility] Lymph % 19.7 % [facility] Lymphocytes Abs 1.2 0.9 - 3.2 x10(3)/[facility] Monocyte % 7.7 % [facility] Monocyte Abs 0.5 0.3 - 0.9 x10(3)/[facility] Eos % 1.3 % [facility] Eosinophils Abs 0.1 0.0 - 0.4 x10(3)/[facility] Basophil % 0.5 % [facility] Baso Absolute 0.0 0.0 - 0.1 x10(3)/[facility] Immature Gran % 0.50 % [facility] [...] x10(3)/[facility] Blood 06/06/2024 9:04 AM EDT 06/06/2024 9:12 AM EDT Narrative Resulting Agency Comment Spec In Lab Marcelle Weinberg MANAGER OF FINANCIAL REPORTING HEMATOLOGY ORDERA BLES [facility] [place] [address] * (ABNORMAL) Hemogram (06/06/2024 9:04 AM EDT) White Blood Cell 6.2 4.0 - 9.5 x10(3)/mc L [facility] Red Blood Cell 3.68(L) 4.58 - 5.54 x10(6)/mc L [facility] Hemoglobin 12.0(L) [...] HOSPITAL LABORATORY Platelet 168 145 - 357 x10(3)/mc L [facility] RDW Standard Deviation 46.7(H) 36.0 - 45.0 fL [facility] RDW coefficient of variation 13.1 11.4 - 13.8 % [facility] Mean Platelet Volume 11.3 7.6 - 12.9 [facility] NRBC% auto 0.0 % [facility] NRBC Absolute 0.000 0.000 - 0.000 x10(3)/mc L [facility] Blood 06/06/2024 9:04 AM EDT 06/06/2024 9:12 AM EDT Narrative Resulting Agency Comment Spec In Lab Marcelle Weinberg MANAGER OF FINANCIAL REPORTING HEMATOLOGY ORDERA BLES Performing Organization Address City/[facility]/ZIP Co de Phone Number [facility] [place] [address] * (ABNORMAL) CRP, acute inflammation (06/06/2024 9:04 AM EDT) C-Reactive Protein 6.4(H) <=4.9 mg/L [facility] Blood 06/06/2024 9:04 AM EDT 06/06/2024 9:12 AM EDT Narrative Resulting Agency Comment Spec In Lab Marcelle Weinberg MANAGER OF FINANCIAL REPORTING CHEMISTRY ORDERAB LES [facility] [place] [address] * Sedimentation rate (06/06/2024 9:04 AM EDT) [...] Comment Spec In Lab MonalisaDg Weinberg MANAGER OF FINANCIAL REPORTING HEMATOLOGY ORDERA BLES [facility] [place] [address] * Comprehensive metabolic panel (non-fasting) (06/06/2024 9:04 [...] APRN CHEMISTRY ORDERAB LES Performing Organization Address City/State/[facility] Co de Phone Number [facility] [address] documented in this encounter Visit Diagnoses Diagnosis Left sided colitis without complications Left sided ulcerative (chronic) colitis documented in this encounter Care Teams Desk Manager Relationship Specialty Start Date End Date Deacon Watters APRN [address] [place] [address] PCP - General Family Medicine 02/17/22 documented as of this encounter
--- OUTSIDE RECORDS SUMMARY | 2024-07-11 11:13 | XMS_ITS | Encounter Summary ---
Author Organization [facility] Address [facility] [place] [address] Care Team Providers Care Line Ordering Clinician Name Role Phone Deacon Watters APRN Primary Care Provider +1- [phone] Encounter Details Date Type Department Care Team (Latest Contact Info) Description 12/07/2023 8:00 AM EST Office Visit [place] [address] Dion Barlow MD [facility] [place] [address] Left sided colitis without complications Social History [...] the next approximately eight weeks, please call [phone] to schedule the exam. 5. Repeat routine labs today. 6. Follow-up at the time of colonoscopy and in the office with Farideh Weinberg APRN in about 6-8 months. documented in this encounter Progress Notes * Dion Barlow MD - 12/07/2023 8:00 AM EST Images from the original note were not included. [facility] IBD PROGRAM ESTABLISHED PATIENT VISIT Patient Active Problem List Diagnosis Ulcerative colitis Overview Note: Colonoscopy 04/08/10 (Dr. Gomes [facility]) - inflammation only within the rectum and sigmoid; extent of the exam was to the hepatic flexure; biopsies proximal to the sigmoid nl Repeat exam 11/27/11 ([facility] mildly active colitis in the [...] ascending colon. Several HPs and one TA. [place] 03/2022 - [place] 1 limited to rectosigmoid, [...] bladder. Was referred to his urologist at [facility]. He reports that he has a lot [...] for further details re current symptoms. - [facility] Gastro Pre-Visit Questionnaire 12/07/2023 7:54 AM EST [...] varicosities in both legs HEENT: PERRL, EOMI, LOGISTICS SUPPORT and OP clear without ulceration or lesions. LUNGS: Clear to auscultation bilaterally. COR: Regular, normal S1 and S2 without murmurs ABD: Normal active bowel sounds. Soft and non-distended. Mild tenderness to deep palpation in the left lower quadrant more than the right lower quadrant EXT: Trace bilateral edema. Laboratory studies, imaging, and procedures (my review of prior records): Labs reviewed from [facility] 01/2023. CBC stable. Creatinine 1.6. Mild elevation [...] neighbor. He is to follow-up with his hemp fiber taker off, Deacon Watters APRN, in early December. Also [...] the next approximately 8 weeks, please call [phone] to schedule the exam. 5. Repeat routine labs today. 6. Follow-up at the time of colonoscopy and in the office with Farideh Weinberg APRN in about 6-8 months. Davina Barlow MD [employer]'s assistant Co-Director, [facility] Section of [place] [address] documented in this encounter Plan of Treatment Upcoming Encounters Date Type Department Care Team (Late st Contact Info) Description 08/15/2024 9:00 AM EDT Office Visit [place] [address] Dion Barlow MD [facility] [place] [address] 09/01/2024 9:40 AM EDT Office Visit Cardiology at [address] [place] [phone] Franky Shaver MD [facility] [place] [address] 09/01/2024 11:20 AM EDT Office Visit Dermatology at [facility] [address] [place] [phone] Gómez Mercer MD [facility] [place] [address] 09/21/2024 2:45 PM EDT Office Visit [facility] [place] [address] Trung Hoyos MD [facility] [place] [address] Scheduled Orders Name Type Priority Associated Diagnoses [...] 8:53 AM EST) Neutrophil % 70.6 % [facility] Neutrophil Absolute 4.29 1.70 - 6.10 x10(3)/[facility] Lymph % 20.4 % [facility] Lymphocytes Abs 1.2 0.9 - 3.2 x10(3)/[facility] Monocyte % 5.9 % [facility] Monocyte Abs 0.4 0.3 - 0.9 x10(3)/[facility] Eos % 2.1 % [facility] Eosinophils Abs 0.1 0.0 - 0.4 x10(3)/[facility] Basophil % 0.7 % [facility] Baso Absolute 0.0 0.0 - 0.1 x10(3)/[facility] Immature Gran % 0.30 % [facility] Comment: Immature granulocytes(IG's)percentage and absolute count will include metamyelocytes, myelocytes, and promyelocytes. Blood smears from CBCs yielding IG's will be scanned manually for concordance. If this scan disagrees with the automated IG or if promyelocytes are noted, a manual differential will be performed. Immature Gran Absolute 0.02 0.00 - 0.04 x10(3)/[facility] Blood 12/07/2023 8:53 AM EST 12/07/2023 9:03 AM EST Narrative Resulting Agency Comment Spec In Lab L Karthik Barlow MD HEMATOLOGY ORDERABLE S [facility] [place] [address] * (ABNORMAL) Hemogram (12/07/2023 8:53 AM EST) White Blood Cell 6.1 4.0 - 9.5 x10(3)/mc L [facility] Red Blood Cell 3.87(L) 4.58 - 5.54 x10(6)/mc L [facility] Hemoglobin 12.8(L) 13.7 - 16.5 g/dL [facility] Hematocrit 37.5(L) 40.5 - 48.5 % [facility] Mean Cell Volume 96.9(H) 82.9 - 93.1 fL [facility] Mean Cell Hemoglobin 33.1(H) 27.5 - 32.1 pg [facility] Mean Cell Hemoglobin Concentration 34.1 32.0 - 35.7 g/dL [facility] Platelet 199 145 - 357 x10(3)/mc L [facility] RDW Standard Deviation 44.2 36.0 - 45.0 fL [facility] RDW coefficient of variation 12.6 11.4 - 13.8 % [facility] Mean Platelet Volume 11.2 7.6 - 12.9 fL [facility] NRBC% auto 0.0 % [facility] NRBC Absolute 0.000 0.000 - 0.000 x10(3)/[facility] LABORATORY Blood 12/07/2023 8:53 AM EST 12/07/2023 9:03 AM EST Narrative Resulting Agency Comment Spec In Lab L Karthik Barlow MD HEMATOLOGY ORDERABLE S [facility] [place] [address] * CRP, acute inflammation (12/07/2023 8:53 AM EST) C-Reactive Protein <3.0 <=4.9 mg/L [facility] Blood 12/07/2023 8:53 AM EST 12/07/2023 9:03 AM EST Narrative Resulting Agency Comment Spec In Lab L Karthik Barlow MD CHEMISTRY ORDERABLES [facility] [place] [address] * (ABNORMAL) Comprehensive metabolic panel (non-fasting) (12/07/2023 8:53 AM EST) Glucose 140 65 - 199 mg/dL [facility] Comment:Diabetes: >=200 mg/d L plus symptoms Blood Urea Nitrogen 12 10 - 20 mg/dL [facility] Creatinine 1.05 0.80 - 1.50 mg/dL [facility] Sodium 144 135 - 145 mmol/L [facility] Potassium 4.0 3.5 - 5.0 mmol/L [facility] Comment: Please note: ??Patients with WBC >100,000 may have falsely elevated Potassium levels. ??For accurate Potassium quantification in these patients send serum separator tube (gold top) for subsequent determinations. ??Contact the Clinical Chemistry Laboratory if there are any questions. Chloride 109(H) 98 - 107 mmol/L [facility] Carbon Dioxide 24 22 - 31 mmol/L [facility] Anion Gap 11 5 - 15 mmol/L [facility] Calcium 9.5 8.5 - 10.5 mg/dL [facility] Protein, Total 7.8 6.1 - 8.0 g/dL [facility] Albumin 4.2 3.2 - 5.2 g/dL [facility] Aspartate Aminotransferase 13 0 - 39 unit/L [facility] Alanine Aminotransferase 15 0 - 55 unit/L [facility] Alkaline Phosphatase 77 40 - 130 unit/L [facility] Bilirubin, Total 0.4 0.2 - 1.3 mg/dL [facility] Est Glomerular Filtration Rate 74 >=60 mL/min/1. 73 m?? [facility] Comment: This patient's estimated GFR [...] Lab L Karthik Barlow MD [place] [address] documented in this encounter Visit Diagnoses Diagnosis Left sided colitis without complications Left sided ulcerative (chronic) colitis documented in this encounter Care Teams Line Ordering Clinician Relationship Specialty Start Date End Date Deacon Watters, DIGITAL MARKETING EXECUTIVE [address] [place] [address] PCP - General Family Medicine 02/17/22 documented as of this encounter
--- OUTSIDE RECORDS SUMMARY | 2024-07-11 11:13 | XMS_ITS | Encounter Summary ---
Author Organization [facility] Address [facility] [place] [address] Care Team Providers Care Talend Developer Name Role Phone DuongVeliakip Wells APRN Primary Care Provider +1- [phone] Encounter Details Date Type Department Care Team [...] 9:00 AM EDT Office [place] [address] Dion Barlow MD [facility] [place] [address] 09/01/2024 9:40 AM EDT Office Visit Cardiology at [address] [phone] Franky Shaver MD [facility] [place] [address] 09/01/2024 11:20 AM EDT Office Visit Dermatology at [facility] [address] [place] [address] Gómez Mercer MD [facility] DR [place] [address] 09/21/2024 2:45 PM EDT Office Visit Pain and Spine Center at [facility] [address] [place] [address] Trung Hoyos MD [facility] [place] [address] documented as of this encounter Visit Diagnoses Not on filedocumented in this encounter Care Teams Talend Developer Relationship Specialty Start Date End Date Deacon Watters, JAZMINE [address] [place] [address] PCP - General Family Medicine 02/17/22 documented as of this encounter
--- OUTSIDE RECORDS SUMMARY | 2024-07-11 11:13 | XMS_ITS | Encounter Summary ---
Author Organization [facility] Address [facility] [place] [address] Care Team Providers Care Photovoltaic Testing Technician Name Role Phone Deacon Watters APRN Primary Care Provider +1- [phone] Encounter Details Date Type Department Care Team (Late st Contact Info) Description 06/29/2024 [place] [address] Ramakrishna Elliott MD [facility] [place] [address] Social History Tobacco Use Types Packs/Day Years [...] Date: 06/29/24 Referring Provider: William Patient Location: [facility] HPI: 74 yoM w/ PMHx of HTN, [...] as tolerated - TTE - plan for [facility] Recommendations: Above recommendations were based on my discussion with Dr. briscoe; I have not personally interviewed or examined this patient. Advised to call the transfer center back with any changes in the patient condition. Ramakrishna Elliott MD Traveling Sales Representative documented in this encounter Plan of Treatment Upcoming Encounters Date Type Department Care Team (Late st Contact Info) Description 08/15/2024 9:00 AM EDT Office [place] [address] Dion Barlow MD [facility] [place] [address] 09/01/2024 9:40 AM EDT Office Visit Cardiology at [address] [place] [address] Franky Shaver MD [facility] [place] [address] 09/01/2024 11:20 AM EDT Office Visit Dermatology at [facility] [address] [place] [address] Gómez Mercer MD [facility] DR [place] [address] 09/21/2024 2:45 PM EDT Office Visit Pain and Spine Center at [facility] [place] [address] Trung Hoyos MD [facility] [place] [address] documented as of this encounter Visit Diagnoses Not on filedocumented in this encounter Care Teams Photovoltaic Testing Technician Relationship Specialty Start Date End Date Deacon Watters, INTERLOCKING TOWER OPERATOR [address] [place] [address] PCP - General Family Medicine 02/17/22 documented as of this encounter
--- OUTSIDE RECORDS SUMMARY | 2024-07-11 11:13 | XMS_ITS | Encounter Summary ---
Author Organization [facility] [address] Care Team Providers Care Deep Fat Fry Cook Name Role Phone Deacon Watters APRN Primary Care Provider +1- [phone] Reason for Referral * Consultation (Routine) - Closed Specialty Diagnoses / Procedures Referred By Contac t Referred To Contact Pain and Spine Center Diagnoses Spondylosis of cervical region without myelopathy or radiculopathy Santiago Morales PA [facility] [place] [address] [facility] [place] [address] Referral ID Status Reason Start Date Expiration Date V isits Requested Visits Authorized [id number] Closed Pain Consult 04/06/2024 04/06/2025 1 1 Reason for Visit * Reason Comments Follow-up Pain Back of neck- right side of neck is worse Encounter Details Date Type Department Care Team (Latest Contact Info) Description 04/06/2024 8:30 AM EDT Office Visit [facility] [place] [phone] Santiago Morales PA [facility] [place] [address] Spondylosis of cervical region without myelopathy or [...] [facility] for [facility] @ [facility] for evaluation. Chief Complaint: Neck pain. Intermittent [...] strength though with slight weakness with left exhaust and muffler fitter compared to thatof the right. Imaging: No [...] 9:00 AM EDT Office [place] [address] Dion Barlow MD [facility] [place] [address] 09/01/2024 9:40 AM EDT Office Visit Cardiology at [address] [phone] Franky Shaver MD [facility] [place] [address] 09/01/2024 11:20 AM EDT Office Visit Dermatology at [facility] [address] [place] [phone] Gómez Mercer MD [facility] DR ED[facility] [place] [address] 09/21/2024 2:45 PM EDT Office Visit [facility] [place] [address] Trung Hoyos MD [facility] [place] [address] Scheduled Referrals Name Type Priority Associated Diagnoses Orde r Schedule Referral to Pain and Spine Center (Internal only) Outpatient Referral Routine Spondylosis of cervical region without myelopathy or radiculopathy Ordered: 04/06/2024 documented as of this encounter Visit Diagnoses Diagnosis Spondylosis of cervical region without myelopathy or radiculopathy Cervical spondylosis without myelopathy documented in this encounter Care Teams Deep Fat Fry Cook Relationship Specialty Start Date End Date Deacon Watters, WEIGHER AND CHARGER [address] [place] [address] PCP - General Family Medicine 02/17/22 documented as of this encounter
--- OUTSIDE RECORDS SUMMARY | 2024-07-11 11:13 | XMS_ITS | Encounter Summary ---
Author Organization [facility] Address [facility] [place] [address] Care Team Providers Care Legal Process Specialist Name Role Phone DuongVeliakip Wells APRN Primary Care Provider +1- [phone] Encounter Details Date Type Department Care Team [...] 9:00 AM EDT Office Visit [place] [address] Dion Barlow MD [facility] [place] [address] 09/01/2024 9:40 AM EDT Office Visit Cardiology at [address] [phone] Franky Shaver MD [facility] [place] [place] [address] 09/01/2024 11:20 AM EDT Office Visit Dermatology at [facility] [address] [place] [address] Gómez Mercer MD [facility] DR EDDIE [place] [address] 09/21/2024 2:45 PM EDT Office Visit Pain and Spine Center at [facility] [place] [address] Trung Hoyos MD [facility] [place] [address] documented as of this encounter Visit Diagnoses Not on filedocumented in this encounter Care Teams Legal Process Specialist Relationship Specialty Start Date End Date Deacon Watters, JAZMINE [address] [place] [address] PCP - General Family Medicine 02/17/22 documented as of this encounter
--- OUTSIDE RECORDS SUMMARY | 2024-07-11 11:13 | XMS_ITS | Encounter Summary ---
Author Organization [facility] Address [facility] [place] [address] Care Team Providers Care Nurse Midwife/Clinical Instructor Name Role Phone DuongVeliakip Wells APRN Primary Care Provider +1- [phone] Encounter Details Date Type Department Care Team [...] 9:00 AM EDT Office [place] [address] Dion Barlow MD [facility] [place] [address] 09/01/2024 9:40 AM EDT Office Visit Cardiology at [address] [phone] Franky Shaver MD [facility] [place] [address] 09/01/2024 11:20 AM EDT Office Visit Dermatology at [facility] [address] [place] [address] Gómez Mercer MD [facility] DR EDDIE SANCHEZ-[place] [address] 09/21/2024 2:45 PM EDT Office Visit Pain and Spine Center at [facility] [address] Trung Hoyos MD [facility] PA[place] [address] documented as of this encounter Visit Diagnoses Not on filedocumented in this encounter Care Teams Nurse Midwife/Clinical Instructor Relationship Specialty Start Date End Date Deacon Watters, JAZMINE [address] [place] [address] PCP - General Family Medicine 02/17/22 documented as of this encounter
--- OUTSIDE RECORDS SUMMARY | 2024-07-11 11:13 | XMS_ITS | Encounter Summary ---
Author Organization [facility] Address [facility] [place] [address] Care Team Providers Care Social Work Supervisor Name Role Phone Duong Deacon Wells APRN Primary Care Provider +1- [phone] Encounter Details Date Type Department Care Team [...] 9:00 AM EDT Office [place] [address] Dion Barlow MD [facility] [place] [address] 09/01/2024 9:40 AM EDT Office Visit Cardiology at [address] [phone] Franky Shaver MD [facility] [place] [address] 09/01/2024 11:20 AM EDT Office Visit Dermatology at [facility] [address] [place] [address] Gómez Mercer MD [facility] DR EDDIE [place] [address] 09/21/2024 2:45 PM EDT Office Visit [place] [phone] Trung Hoyos MD [facility] [place] [address] documented as of this encounter Visit Diagnoses Not on filedocumented in this encounter Care Teams Social Work Supervisor Relationship Specialty Start Date End Date Deacon Watters, JAZMINE [address] [place] [address] PCP - General Family Medicine 02/17/22 documented as of this encounter
--- OUTSIDE RECORDS SUMMARY | 2024-07-11 11:13 | XMS_ITS | Encounter Summary ---
Author Organization [facility] [place] [address] Care Team Providers Care Lens Gauger Name Role Phone Deacon Watters APRN Primary Care Provider +1- [phone] Reason for Visit * Reason Comments Neck Pain * Consultation (Routine) - Closed Specialty Diagnoses / Procedures Referred By Contac t Referred To Contact Pain and Spine Center Diagnoses Spondylosis of cervical region without myelopathy or radiculopathy Santiago Morales PA [facility] [place] [address] [facility] [place] [address] Referral ID Status Reason Start Date Expiration Date V isits Requested Visits Authorized [id number] Closed Pain Consult 04/06/2024 04/06/2025 1 1 Encounter Details Date Type Department Care Team (Latest Contact Info) Description 06/22/2024 8:00 AM EDT Office Visit [place] [address] Trung Hoyos MD [facility] [place] [address] Radiculopathy of cervical region (Primary Dx) Social History Tobacco Use Types Packs/Day Years Used Date Smoking Tobacco: Former Cigarettes 4 30 1 12/01/1961 - 10/01/1992 Smokeless Tobacco: Former Chew Comments:Denies vaping Alcohol Use Standard Drinks/Week Comments Yes 0 (1 standard drink = 0.6 oz pur e alcohol) twice a year [facility] Utilities Answer Date Recorded In the [...] any time in the past 12 m [facility], were you homeless or living in a snf (including now)? No 07/01/2024 IPV Inpatient Questions [...] or as needed documented in this encounter Progress Notes * Trung Hoyos MD - 06/22/2024 8:00 AM EDT Images from the original note were not included. [facility] Initial Consultation Note DOS: 06/22/24 : 1950 Brian Rodriguez is a 73 y.o. year old male who presents to the pain clinic today at the referral of: Santiago Morales PA [facility] [place] [address] for consideration of treatment for his pain CC: Left-sided neck pain HPI: Brian Rodriguez prefers to be called Eduardo. He is alone today for this visit. He describes left-sided neck pain associated with some left hand weakness. 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 He indicated that he once fell over 50 feet onto his head holding his hard hat, injuring his neck, and crushing his right hand. He was taken to [facility] at that time. 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 Of note he helped build [facility] in the late or early He indicated he had a cortisone injection in his right shoulder which was helpful once. He had a possible lumbar epidural steroid injection at [facility] at least 25 years ago that helped. He has not had any cervical spine injections. His pain occasionally triggers migraine headaches. He indicated he has a cancer spot behind (his left) eye. He had nose surgery for basal cell carcinoma. He had reconstruction in January 2024. He had a rash alongside the right aspect of his posterior neck and upper trapezius region. He has type 2 diabetes with moderate glucose control. He also describes having occasional boils with green-colored purulent discharge that he has experienced in particular on the right side of his neck ROS: Constitutional: No unintentional weight loss or gain, fevers, chills, or night sweats. HENT: No recent hearing changes. No difficulty swallowing. Eyes: No recent vision changes. Respiratory: No cough or shortness of breath. Cardiovascular: No chest pain or syncope. GI: No diarrhea, nausea, vomiting, or constipation. : No dysuria, hesitancy, or urgency. No incontinence. Musculoskeletal: No atrophy Skin: No rashes or lesions. Neurologic: No numbness/tingling. No difficulty with balance. Psychiatric: Mood ok. No SI/HI. Heme/Lymph/Imm: No easy bleeding or brusing. PMH/PSH: Patient Active Problem List Diagnosis Code Ulcerative colitis K51.90 Diabetes mellitus E11.9 Hearing loss H91.90 GERD (gastroesophageal reflux disease) K21.9 Hydrocele N43.3 Asthma J45.909 Anemia D64.9 Past Medical History: Diagnosis Date Asthma 10/01/2011 Diabetes mellitus 10/01/2011 GERD (gastroesophageal reflux disease) 10/01/2011 Hearing loss 10/01/2011 Hydrocele 10/01/2011 Ulcerative colitis 10/01/2011 Past Surgical History: Procedure Laterality Date PRO COLONOSCOPY, BIOPSY N/A 02/12/2017 COLONOSCOPY FLEXIBLE, WITH BX (WRVU 3.66) performed by Dion Osullivan MD at [facility] ENDOSCOPY PRO COLONOSCOPY, BIOPSY N/A 02/22/2019 COLONOSCOPY FLEXIBLE, WITH BX (WRVU 3.66) performed by Dion Osullivan MD at [facility] ENDOSCOPY PRO COLONOSCOPY, BIOPSY N/A 03/28/2022 COLONOSCOPY FLEXIBLE, WITH BX (WRVU 3.66) performed by Mona Turner MD at [facility] ENDOSCOPY PRO COLONOSCOPY, BIOPSY N/A 01/20/2024 COLONOSCOPY FLEXIBLE, WITH BX (WRVU 3.56) performed by Anthony Hamlin MD at [facility] ENDOSCOPY PRO COLONOSCOPY, DIAGNOSTIC 11/27/2011 COLONOSCOPY, DIAGNOSTIC performed by Dion OSULLIVAN at [facility] END[facility]COPY PRO COLONOSCOPY, DIAGNOSTIC 07/13/2014 COLONOSCOPY, DIAGNOSTIC performed by Dion Osullivan MD at [facility]COPY PRO COLONOSCOPY, REMV LESN, SNARE N/A 02/22/2019 COLONOSCOPY, POLYPECTOMY, REMOVAL LESION BY SNARE (WRVU 4.67) performed by Dion Osullivan MD at [facility]COPY PRO COLONOSCOPY, REMV LESN, SNARE N/A 02/26/2021 COLONOSCOPY, POLYPECTOMY, REMOVAL LESION BY SNARE (WRVU 4.67) performed by Dion Osullivan MD at [facility] PRO SIGMOIDOSCOPY, DIAGNOSTIC 03/16/2012 FLEXIBLE SIGMOIDOSCOPY performed by YUDI MALLOY at [facility] END[facility]COPY PRO UPPER GI ENDOSCOPY, DIAGNOSTIC N/A 04/28/2019 EGD, UPPER GI ENDOSCOPY performed by Iza Coates MD at [facility] END[facility]COPY UPPER GI ENDOSCOPY, EXAM 10/01/2012 UPPER GI ENDOSCOPY performed by Dion OSULLIVAN at [facility] FAMILY HISTORY: No family history on file. SOCIAL HISTORY: Social History Socioeconomic History Marital status: Spouse name: Not on file Number of children: Not on file Years of education: Not on file Highest education level: Not on file Occupational History Not on file Tobacco Use Smoking status: Former Current packs/day: 0.00 Average packs/day: 4.0 packs/day for 30.0 years (120.0 ttl pk-yrs) Types: Cigarettes Start date: 10/01/1962 Quit date: 10/01/1992 Years since quittin.7 Smokeless tobacco: Former Types: Chew Tobacco comments: Denies vaping Vaping Use Vaping status: Never Used Substance and Sexual Activity Alcohol use: Yes Comment: twice a year Drug use: No Sexual activity: Not on file Comment: deferred Other Topics Concern Not on file Social History Narrative Not on file Social Determinants of Health Financial Resource Strain: Not on file Food Insecurity: Not on file Transportation Needs: Not on file Physical Activity: Not on file Intimate Partner Violence: Not on file Housing Stability: Not on file FUNCTIONAL STATUS: Independent in all ADLs. MEDICATIONS: Current Outpatient Medications: ketoconazole (Nizoral) 2 % Cream, Apply twice daily to affected areas on the groin, Disp: 30 g, Rfl: 1 mupirocin (Bactroban) 2 % Ointment, Apply topically once daily for 10 days to healing graft area. (Patient not taking: Reported on 06/06/2024), Disp: 22 g, Rfl: 0 dicyclomine (Bentyl) 20 mg tablet, TAKE ONE TABLET BY MOUTH EVERY 8 HOURS NEEDED, Disp: 90 tablet, Rfl: 5 budesonide (Uceris) 2 mg/actuation Foam, 2mg rectally nightly for 2 weeks, then continue every other night (four nights per week) (Patient not taking: Reported on 06/06/2024), Disp: 133.6 g, Rfl: 5 sulfaSALAzine (Azulfidine) 500 mg tablet, Take 3 tablets by mouth 2 times daily., Disp: 540 tablet,Rfl: 3 metroNIDAZOLE (FlagyL) 500 mg Tablet, Take 1 tablet by mouth 2 times daily. (Patient not taking: Reported on 06/06/2024), Disp: 20 tablet, Rfl: 0 atorvastatin (Lipitor) 20 mg Tablet, Take 20 mg by mouth daily., Disp: , Rfl: nystatin (Mycostatin) 100,000 unit/mL Suspension, Place 500,000 Units inside cheek., Disp: , Rfl: sulfamethoxazole-trimethoprim DS (Bactrim DS) 800-160 mg Tablet, Take 1 tablet by mouth., Disp: , Rfl: SUMAtriptan (Imitrex) 50 mg Tablet, TAKE 1 TABLET BY MOUTH 1 TIME NEEDED FOR MIGRAINE HEADACHE, Disp: , Rfl: gabapentin (Neurontin) 300 mg Capsule, Take 300 mg by mouth daily as needed., Disp: , Rfl: losartan (Cozaar) 50 mg Tablet, Take 100 mg by mouth daily., Disp: , Rfl: albuterol 90 mcg/actuation HFA Aerosol Inhaler, Inhale 2 puffs into the lungs every 4 hours as needed for Wheezing. Use with spacer, Disp: , Rfl: BASAGLAR KWKELLYPEN U-100 INSULIN 100 unit/mL (3 mL) pen, Inject 70 Units subcutaneously., Disp: , Rfl: 0 propranolol (INDERAL LA) 80 mg Capsule,Sustained Action 24 hr, take 2 capsules by mouth daily for MIGRAINE PROPHYLAXIS, Disp: , Rfl: 0 lisinopril (PRINIVIL;ZESTRIL) 10 mg Tablet, take 1 tablet by mouth once daily, Disp: , Rfl: 0 metFORMIN (GLUCOPHAGE) 1,000 mg Tablet, Take 500 mg by mouth daily., Disp: , Rfl: 0 tamsulosin (FLOMAX) 0.4 mg Capsule, Sust. Release 24 hr, Take 0.8 mg by mouth daily., Disp: , Rfl: glipiZIDE (GLUCOTROL) 10 mg 24 hr tablet, Take 10 mg by mouth daily., Disp: , Rfl: folic acid (FOLVITE) 1 mg tablet, Take 1 tablet by mouth daily., Disp: 90 tablet, Rfl: 3 omeprazole (PRILOSEC) 20 mg capsule, Take 40 mg by mouth daily., Disp: , Rfl: PDMP report checked and no inconsistencies are noted. ALLERGIES: Allergies Allergen Reactions Erythromycin Base CIS - Unknown Jardiance [Empagliflozin] Rash Broke out in a full body rash Tetracyclines PHYSICAL EXAM: General: Patient is seated comfortably in NAD, well-groomed HEENT: Head atraumatic, extraocular movements intact Respiratory: Breathing comfortably on room air Cardiovascular: 2+ peripheral pulses, no swelling Abdominal: Non-distended, non-tender to palpation. Normal active bowel sounds Skin: No appreciable rashes or skin breakdown. Right hand / wrist metal flora implanted Psych: Appropriate affect, alert and oriented to person, place and time. He answers questions appropriately Musculoskeletal: Inspection - No atrophy Palpation - Tender to palpation along the facet joints along the left side of his neck Range of Motion -limited Special tests - Neurologic: map mounter - grossly intact Reflexes - 2+ and symmetric in bilateral biceps, triceps, brachioradiali, patellae, and Achilles. No ankle clonus. Motor - 5/5 in all planes of motion in all four extremities. Sensation - Intact to light touch throughout all four extremities Gait/Station: Antalgic gait. Balance: Fair. TESTS/IMAGING: MRI - 10/2023 Cervical MRI images reviewed revealing degenerative disc changes at C5-C6 contributing to mild central canal stenosis and facet hypertrophy / encroachment contributing to bilateral foraminal narrowing ASSESSMENT: Pleasant 73 yom with cervical radiculopathy refractory to conservative measures. Of note Ross has had occasional purulent discharge from the skin that could be concerning for potential infection with interventional therapy. PLAN: Ross requested proceeding with conservative measures rather consideration of an interventional painmanagement procedure. We discussed the potential roles for physical therapy, the [facility] functional sikh program, and the [facility] active pain care service [facility]. He expressed interest in the above and wished to consider prior to enrolling. Ross may follow-up in 2 - 3 months or on an as needed basis Thank you for allowing us the opportunity to participate in Brian's care. I spent 45 minutes in direct [id number] time, with 40 minutes counseling him regarding treatment options and addressing specific questions. Thank you for referring him to our clinic. Trung Hoyos MD, MS Plastic Block Boiler Reliner of Anesthesiology [facility] [address] [address] / [facility] CC: Santiago Morales PA [facility] PAIN MANAGEMENT [place] [phone] documented in this encounter Plan of Treatment Upcoming Encounters Date Type Department Care Team (Late st Contact Info) Description 08/15/2024 9:00 AM EDT Office [place] [address] Dion Osullivan MD [facility] [place] [address] 09/01/2024 9:40 AM EDT Office Visit Cardiology at [address] [phone] Franky Shaver MD [facility] [address] 09/01/2024 11:20 AM EDT Office Visit Dermatology at [facility] [address] [place] [address] Gómez Mercer MD [facility] DR EDDIE [place] [address] 09/21/2024 2:45 PM EDT Office Visit [place] [address] Trung Hoyos MD [facility] [place] [address] Scheduled Referrals Name Type Priority Associated Diagnoses Orde r Schedule Referral to Pain and Spine Center (Internal only) Outpatient Referral Routine Spondylosis of cervical region without myelopathy or radiculopathy Ordered: 04/06/2024 documented as of this encounter Visit Diagnoses Diagnosis Radiculopathy of cervical region- Primary Brachial neuritis or radiculitis nos documented in this encounter Care Teams Lens Gauger Relationship Specialty Start Date End Date Deacon Watters, SURFACE GRINDER TENDER [address] [place] [address] PCP - General Family Medicine 02/17/22 documented as of this encounter
--- OUTSIDE RECORDS SUMMARY | 2024-07-11 11:13 | XMS_ITS | Encounter Summary ---
Author Organization [facility] [place] [address] Care Team Providers Care Granite Installer Name Role Phone Deacon Watters Priscilla LUCERO Primary Care Provider +1- [phone] Reason for Visit * Reason Comments Medication Refill Encounter Details Date Type Department Care Team (Late st Contact Info) Description 02/19/2024 Refill [place] [address] Dion Barlow MD [facility] [place] [address] Social History Tobacco Use Types Packs/Day Years [...] 9:00 AM EDT Office [place] [address] Dion Barlow MD [facility] [place] [address] 09/01/2024 9:40 AM EDT Office Visit Cardiology at [address] [place] [address] Franky Shaver MD [facility] [place] [address] 09/01/2024 11:20 AM EDT Office Visit Dermatology at [facility] [address] [place] [address] Gómez Mercer MD [facility] DR EDDIE [place] [address] 09/21/2024 2:45 PM EDT Office Visit Pain and Spine Center at [facility] [place] [address] Trung Hoyos MD [facility] [place] [address] documented as of this encounter Visit Diagnoses Not on filedocumented in this encounter Care Teams Granite Installer Relationship Specialty Start Date End Date Deacon Watters, JAZMINE [address] [facility] [address] [place] [address] PCP - General Family Medicine 02/17/22 documented as of this encounter
--- OUTSIDE RECORDS SUMMARY | 2024-07-11 11:13 | XMS_ITS | Encounter Summary ---
Author Organization [facility] Address [facility] [place] [address] Care Team Providers Care Clinical Unit Educator Name Role Phone Deacon Watters APRN Primary Care Provider +1- [phone] Encounter Details Date Type Department Care Team (Latest Contact Info) Description 01/20/2024 9:28 AM EST - 01/20/2024 11:41 AM EST Hospital En[place] [address] Anthony Hamlin MD [facility] [place] [address] Discharge Disposition: Home Social History Tobacco Use [...] occurs, please contact your Doctor. Please call [phone] before 8pm Mon-Fri with problems, questions or concerns. If you call after 8pm or on weekends, call the Hospital at [phone] and ask to speak to the Entry Level Financial Analyst aerodynamic consultant and the laser printing operator will contact that person for you. When should you call for help? Call [phone] anytime you think you may need emergency [...] any problems. Where can you learn more? [facility] View your After Visit Summary and more online at [email or web address] If you would like to [...] cost to you. Content Version: 12.2 ?? 2502-5641 [employer]. Care instructions adapted under license by [facility]. If you have questions about a medical condition or this instruction, always ask your healthcare professional. [employer] disclaims any warranty or liability for your [...] needed for Wheezing. Use with spacer BASAGLAR JUSTINPEN U-100 INSULIN 100 unit/mL (3 mL) pen [...] 01/20/2024 9:32 AM EST Patient Name: Brian Rodriguze Patient Age: 73 y.o. Birthdate: 1950 Admit [...] 9:00 AM EDT Office [place] [address] Dion Barlow MD [facility] [place] [address] 09/01/2024 9:40 AM EDT Office Visit Cardiology at [address] [phone] Franky Shaver MD [facility] [place] [address] 09/01/2024 11:20 AM EDT Office Visit Dermatology at [address] [phone] Gómez Mercer MD [facility] [place] [address] 09/21/2024 2:45 PM EDT Office Visit [place] [address] Trung Hoyos MD [facility] [place] [place] [address] documented as of this encounter Procedures Procedure [...] Routine 01/20/2024 10:24 AM EST Colonoscopy, Biopsy ([id number]) 01/20/2024 10:09 AM EST Left sided colitis without complications POCT GLUCOSE Routine 01/20/2024 10:05 AM EST POCT FINGERSTICK GLUCOSE Routine 01/20/2024 10:05 AM EST COLONOSCOPY Routine 01/20/2024 10:01 AM EST documented in this encounter Results * Specimen to Pathology (01/20/2024 10:48 AM EST) AP Specimen 01/20/2024 10:4 8 AM EST 01/20/2024 10:48 AM EST Narrative [facility] - 01/20/2024 10:48 AM EST Specimen requisition ordered. ??Separate Pathology report to follow Anthony Hamlin MD PATHOLOGY/CYTOLOGY O CEE Performing Organization Address [facility] Co de Phone Number [facility] [place] [address] * Specimen to Pathology (01/20/2024 10:48 AM EST) AP Specimen 01/20/2024 10:4 8 AM EST 01/20/2024 10:48 AM EST Narrative [facility] - 01/20/2024 10:48 AM EST Specimen requisition ordered. ??Separate Pathology report to follow Anthony Hamlin MD PATHOLOGY/CYTOLOGY O CEE Performing Organization Address City/[facility]/ZIP Co de Phone Number [facility] [place] [address] * Specimen to Pathology (01/20/2024 10:48 AM EST) AP Specimen 01/20/2024 10:4 8 AM EST 01/20/2024 10:[address] [facility] - 01/20/2024 10:48 AM EST Specimen requisition ordered. ??Separate Pathology report to follow Anthony Hamlin MD PATHOLOGY/CYTOLOGY O RDMELISSA Performing Organization Address City/[facility] [place] [address] * Specimen to Pathology (01/20/2024 10:48 AM EST) AP Specimen 01/20/2024 10:4 8 AM EST 01/20/2024 10:48 AM EST Narrative [facility] - 01/20/2024 10:48 AM EST Specimen requisition ordered. ??Separate Pathology report to follow Anthony Hamlin MD PATHOLOGY/CYTOLOGY O RDMELISSA Performing Organization Address [facility] Co de Phone Number [facility] [place] [address] * Specimen to Pathology (01/20/2024 10:48 AM EST) AP Specimen 01/20/2024 10:4 8 AM EST 01/20/2024 10:48 AM EST Narrative [facility] - 01/20/2024 10:48 AM EST Specimen requisition ordered. ??Separate Pathology report to follow Anthony Hamlin MD PATHOLOGY/CYTOLOGY O CEE Performing Organization Address [facility] Co de Phone Number [facility] [place] [address] * Specimen to Pathology (01/20/2024 10:48 AM EST) AP Specimen 01/20/2024 10:4 8 AM EST 01/20/2024 10:48 AM EST Narrative [facility] - 01/20/2024 10:48 AM EST Specimen requisition ordered. ??Separate Pathology report to follow Anthony Hamlin MD PATHOLOGY/CYTOLOGY O RDMELISSA Performing Organization Address City/[facility] Co de Phone Number [facility] [place] [address] * Surgical Pathology Report (01/20/2024 10:24 AM EST) Final Diagnosis [id number] ? Location: 4T; EA12; A The signing [...] Dilip Verified: ??01/29/2024 12:04 ??Pathologist Performed at: ??-[facility] [place], [place] [address] Transit [employer] Police Officer: Joana Soler MD, FCAP, ??CLIA Certificate: [id number] SPECIMEN(S) SUBMITTED A - right colon, biopsy [...] labeled F1. ??sns 01/29/2024 12:04 PM EST [facility] GI Biopsy 01/20/2024 10:2 [...] EST Anthony Hamlin MD PATHOLOGY/CYTOLOGY O RDERABLES [facility] [place] [address] [facility] [place] [address] * POCT Glucose (01/20/2024 10:05 AM EST) Glucose, POC 114 65 - 199 mg/dL [facility] Comment: Supplemental ranges: <140 mg/dL before meals <180 mg/dL all other times of the day Blood 01/20/2024 10:0 5 AM EST 01/20/2024 10:05 AM EST Anthony Hamlin MD POINT OF CARE TEST O RDERABLES [facility] [place] [address] * POCT Fingerstick Glucose (01/20/2024 10:05 AM EST) Glucose, POC 114 60 - 199 mg/dl 01/20/2024 10:0 5 AM EST Anthony Hamlin MD POINT OF CARE TEST O RDERABLES * COLONOSCOPY (01/20/2024 10:01 AM EST) COLONOSCOPY [facility] Endoscopy Procedure Date: 01/20/2024 10:01 AM ? Patient Name: Brian Rodriguez ? Date of : 1950 ? Age: 73 ? Order #: [id number] ? Instrument Name: [id number] ? Procedure: ? Colonoscopy Indications: ? Follow-up [...] ? physician, the nurse and the ? pest control technician in the pre-procedure ? area in [...] 01/20/2024 10:0 1 AM EST Deacon Watters PACKING ROOM SUPERVISOR GENERAL SURGICAL O RDERABLES PROVATION documented in [...] RN) documented in this encounter Care Teams Clinical Unit Educator Relationship Specialty Start Date End Date Deacon Watters, JAZMINE [address] [place] [address] [address] [place] [address] PCP - General Family Medicine 02/17/22 documented as of this encounter
--- OUTSIDE RECORDS SUMMARY | 2024-07-11 11:13 | XMS_ITS | Encounter Summary ---
Author Organization [facility] [place] [address] Care Team Providers Care Credit Rating Inspector Name Role Phone Deacon Watters APRN Primary Care Provider +1- [phone] Encounter Details Date Type Department Care Team (Late st Contact Info) Description 06/09/2024 Telephone [place] [phone] Marcelle Weinberg SYSTEMS PROTECTION TECHNICIAN [facility] [place] [address] Social History Tobacco Use Types Packs/Day Years [...] 9:00 AM EDT Office [place] [phone] Dion Barlow MD [facility] [place] [address] 09/01/2024 9:40 AM EDT Office Visit Cardiology at [address] [address] Franky Shaver MD [facility] [place] [address] 09/01/2024 11:20 AM EDT Office Visit Dermatology at [address] [address] Gómez Mercer MD [facility] DR ED[place] [address] 09/21/2024 2:45 PM EDT Office Visit [place] [phone] Trung Hoyos MD [facility] [place] [address] Scheduled Orders Name Type Priority Associated Diagnoses Orde r Schedule Calprotectin, Stool Lab Routine Left sided colitis without complications Expected: 08/01/2024 (Approximate), Expires: 06/09/2025 documented as of this encounter Visit Diagnoses Diagnosis Left sided colitis without complications Left sided ulcerative (chronic) colitis documented in this encounter Care Teams Credit Rating Inspector Relationship Specialty Start Date End Date Deacon Watters APRN [address] [place] [address] PCP - General Family Medicine 02/17/22 documented as of this encounter
--- OUTSIDE RECORDS SUMMARY | 2024-07-11 11:13 | XMS_ITS | Encounter Summary ---
Author Organization [facility] Address [facility] [place] [address] Care Team Providers Care Business Services Sales Agent Name Role Phone Duong Deacon Wells APRN Primary Care Provider +1- [phone] Reason for Visit * Reason Comments Basal Cell Carcinoma Encounter Details Date Type Department Care Team (Latest Contact Info) Description 02/17/2024 7:45 AM EDT Clinical Support Dermatology at [facility] [address] [place] [address] Kingsley Finn MD [facility] [place] [address] Basal cell carcinoma of right side of [...] and preoperative note (H&P) Patient Name: Brian Joya Rodriguez Age: 73 y.o. Date of : [...] 9:00 AM EDT Office [place] [address] Dion Barlow MD [facility] [place] [address] 09/01/2024 9:40 AM EDT Office Visit Cardiology at [address] [address] Franky Shaver MD [facility] [place] [address] 09/01/2024 11:20 AM EDT Office Visit Dermatology at [facility] [address] [place] [address] Gómez Mercer MD [facility] DR [place] [address] 09/21/2024 2:45 PM EDT Office Visit Pain and Spine Center at [facility] [place] [phone] Trung Hoyos MD [facility] [place] [address] documented as of this encounter Visit Diagnoses Diagnosis Basal cell carcinoma of right side of nose Basal cell carcinoma of skin of other and unspecified parts of face documented in this encounter Care Teams Business Services Sales Agent Relationship Specialty Start Date End Date Deacon Watters APRN [address] [place] [address] PCP - General Family Medicine 02/17/22 documented as of this encounter
--- OUTSIDE RECORDS SUMMARY | 2024-07-11 11:14 | XMS_ITS | Encounter Summary ---
Author Organization [facility] Address [facility] [place] [address] Care Team Providers Care Medical Laboratory Technician Name Role Phone DuongVeliakip Wells APRN Primary Care Provider +1- [phone] Encounter Details Date Type Department Care Team (Late st Contact Info) Description 11/04/2022 Orders [place] [phone] Dianna Shen, RN Other ulcerative colitis with [...] 9:00 AM EDT Office Visit [place] [phone] Dion Barlow MD [facility] [place] [address] 09/01/2024 9:40 AM EDT Office Visit Cardiology at [address] [address] Franky Shaver MD [facility] [place] [address] 09/01/2024 11:20 AM EDT Office Visit Dermatology at [facility] [address] [place] [phone] Gómez Mercer MD [facility] DR EDDIE [place] [address] 09/21/2024 2:45 PM EDT Office Visit Pain and Spine Center at [facility] [place] [phone] Trung Hoyos MD [facility] [place] [address] documented as of this encounter Visit Diagnoses Diagnosis Other ulcerative colitis with rectal bleeding Left sided colitis without complications Left sided ulcerative (chronic) colitis Diarrhea, unspecified type documented in this encounter Care Teams Medical Laboratory Technician Relationship Specialty Start Date End Date Deacon Watters APRN [address] [place] [address] PCP - General Family Medicine 02/17/22 documented as of this encounter
--- OUTSIDE RECORDS SUMMARY | 2024-07-11 11:14 | XMS_ITS | Encounter Summary ---
Author Organization [facility] [place] [address] Care Team Providers Care Artificial Leather Calender Operator Name Role Phone Josue Wilkinson MD Primary Care Provider [phone] Reason for Visit * Reason Onset Date Comments Medication Refill 05/06/2021 Encounter Details Date Type Department Care Team (Late st Contact Info) Description 05/06/2021 Refill [place] [phone] Marcelle Weinberg, JAZMINE [facility] [place] [address] Social History Tobacco Use Types Packs/Day Years [...] 9:00 AM EDT Office [place] [phone] Dion Barlow MD [facility] [place] [address] 09/01/2024 9:40 AM EDT Office Visit Cardiology at [address] [place] [phone] Franky Shaver MD [facility] [place] [address] 09/01/2024 11:20 AM EDT Office Visit Dermatology at [facility] [address] [place] [phone] Gómez Mercer MD [facility] [place] [address] 09/21/2024 2:45 PM EDT Office Visit [facility] [place] [address] Trung Hoyos MD [facility] [place] [address] documented as of this encounter Visit Diagnoses Not on filedocumented in this encounter Care Teams Artificial Leather Calender Operator Relationship Specialty Start Date End Date Josue Wilkinson MD PCP - General General Internal Medicine 02/14/21 9/3 documented as of this encounter
--- OUTSIDE RECORDS SUMMARY | 2024-07-11 11:14 | XMS_ITS | Encounter Summary ---
[place] [address] Care Team Providers Care Director Of Clinical Trials Name Role Phone Deacon Watters APRN Primary Care Provider [phone]- [phone] Encounter Details Date Type Department Care Team (Late st Contact Info) Description 02/26/2022 Telephone [place] [phone] Erika Armas Social History Tobacco Use Types [...] - 02/26/2022 1:04 PM EDT Brian Rodriguez [id number] Diagnosis/Indication: UC, restage disease and for surveillance [...] 9:00 AM EDT Office [place] [address] Dion Barlow MD [facility] [place] [address] 09/01/2024 9:40 AM EDT Office Visit Cardiology at [address] [phone] Franky Shaver MD [facility] [place] [address] 09/01/2024 11:20 AM EDT Office Visit Dermatology at [facility] [address] [place] [address] Gómez Mercer MD [facility] DR EDDIE SANCHEZ-[place] [address] 09/21/2024 2:45 PM EDT Office Visit Pain and Spine Center at [facility] [place] [phone] Trung Hoyos MD [facility] PAIN [place] [address] documented as of this encounter Visit Diagnoses Not on filedocumented in this encounter Care Teams Director Of Clinical Trials Relationship Specialty Start Date End Date Deacon Watters APRN [address] [place] [address] PCP - General Family Medicine 02/17/22 documented as of this encounter
--- OUTSIDE RECORDS SUMMARY | 2024-07-11 11:14 | XMS_ITS | Encounter Summary ---
Author Organization [facility] Address [facility] [place] [address] Care Team Providers Care Beverage Specialist Name Role Phone Unknown Primary Care Provider Unavailabl e Encounter Details Date Type Department Care Team (Latest Contact Info) Description 08/26/2021 9:30 AM EDT Office [place] [address] Dion Barlow MD [facility] [place] [address] Other ulcerative colitis with rectal bleeding; Left [...] manometry. - Obtain upper endoscopy report from [facility] in June 2021 - Avoid non-steroidal anti-inflammatory [...] Overview Note: ?? Colonoscopy 04/08/10 (Dr. Gomes [facility]) - inflammation only within the rectum and sigmoid; extent of the exam was to the hepatic flexure; biopsies proximal to the sigmoid nl ?? Repeat exam 11/27/11 ([facility] [...] dysphagia to solids. Had an EGD at [facility] in Jun and recalls was normal. No [...] 02/26/21 114.8 kg (253 lb) Gen NAD. goldsmith Recent labs Laboratory Appointment on 05/31/2021 Component [...] manometry. - Obtain upper endoscopy report from [facility] in June 2021 - Avoid non-steroidal anti-inflammatory medications (NSAIDs) including but not limited to Advil, ibuprofen, Motrin, Aleve, Excedrin, naproxen, Mobic, indomethacin, and aspirin. Acetaminophen (Tylenol) is okay for aches and pains. - Follow-up in 6 months - will schedule colonoscopy at that time. I spent 30 min today reviewing the chart preparing for this visit, counseling the patient [id number] on the issues outlined above, and documenting an implementing the plan. Davina Barlow MD Lecturer In Computer Sciencerotary shear operator Co-Director, [facility] Section of [place]astroenter[place] [address] documented in this encounter Plan of Treatment Upcoming Encounters Date Type Department Care Team (Late st Contact Info) Description 08/15/2024 9:00 AM EDT Office [place] [address] Dion Barlow MD [facility] [place] [address] 09/01/2024 9:40 AM EDT Office Visit Cardiology at [address] [place] [phone] Franky Shaver MD [facility] [place] [address] 09/01/2024 11:20 AM EDT Office Visit Dermatology at [facility] [address] [place] [address] Gómez Mercer MD [facility] [place] [address] 09/21/2024 2:45 PM EDT Office Visit [place] [address] Trung Hoyos MD [facility] [place] [address] documented as of this encounter Visit Diagnoses Diagnosis Other ulcerative colitis with rectal bleeding Left sided colitis without complications Left sided ulcerative (chronic) colitis documented in this encounter Care Teams Beverage Specialist Relationship Specialty Start Date End Date Unknown None PCP - General 08/23/21 02/16/22 documented as of this encounter
--- OUTSIDE RECORDS SUMMARY | 2024-07-11 11:14 | XMS_ITS | Encounter Summary ---
Author Organization [facility] Address [facility] [place] [address] Care Team Providers Care Assistant Boys Track Coach Name Role Phone Deacon Watters APRN Primary Care Provider +1- [phone] Encounter Details Date Type Department Care Team (Late st Contact Info) Description 02/17/2022 9:30 AM EDT Office Visit [place] [address] Marcelle Weinberg STEAM BLOCKER [facility] [place] [address] Other ulcerative colitis with rectal bleeding Social [...] Overview Note: ? Colonoscopy 04/08/10 (Dr. Gomes [facility]) - inflammation only within the rectum and sigmoid; extent of the exam was to the hepatic flexure; biopsies proximal to the sigmoid nl ?? Repeat exam 11/27/11 ([facility] [place]): mildly active colitis in [...] Final Recent endoscopic procedures 06/28/21 EGD ( [facility]): Pre op Dx; Dysphagia Post op [...] abnormalities. Recent relevant imaging None ?? Assessment/Plan: Mr.??Rodriguez??is a 71 y.o.??patient with ulcerative colitis. ??On [...] Disease Center Section of Gastroenterology and Hepatology [address] [address] documented in this encounter Plan of Treatment Upcoming Encounters Date Type Department Care Team (Late st Contact Info) Description 08/15/2024 9:00 AM EDT Office Visit [place] [address] Dion Barlow MD [facility] [place] [address] 09/01/2024 9:40 AM EDT Office Visit Cardiology at [address] [place] [address] Franky Shaver MD [facility] [place] [address] 09/01/2024 11:20 AM EDT Office Visit Dermatology at [facility] [address] [place] [place] [address] Gómez Mercer MD [facility] DR EDDIE [place] [address] 09/21/2024 2:45 PM EDT Office Visit Pain and Spine [facility] at [facility] [place] [address] Trung Hoyos MD [facility] [place] [address] Scheduled Orders Name Type Priority Associated Diagnoses [...] AM EDT) Calprotectin, Stool 55 <=79 mcg/g [facility] Comment: Calprotectin Concentration ? Interpretation ? < 80 mcg/g ?Normal ? 80 ? 160 mcg/g ?Borderline ? >160 mcg/g ?Elevated Stool 02/19/2022 8:00 AM EDT 02/19/2022 11:25 AM EDT Narrative Resulting Agency Comment Spec In Lab Marcelle Conte Dragwill STEAM BLOCKER BODY FLUIDS AND S TOOLS ORDERABLES Performing Organization Address City/State/[facility] Co de Phone Number [facility] [place] [address] * (ABNORMAL) Differential, Automated (02/17/2022 10:40 AM EDT) Neutrophil % 65.7 % [facility] Neutrophil Absolute 4.53 1.70 - 6.10 x10(3)/mc L [facility] Lymph % 22.8 % [facility] Lymphocytes Abs 1.6 0.9 - 3.2 x10(3)/mc L [facility] Monocyte % 7.3 % [facility] Monocyte Abs 0.5 0.3 - 0.9 x10(3)/mc L [facility] Eos % 2.6 % [facility] Eosinophils Abs 0.2 0.0 - 0.4 x10(3)/mc L [facility] Basophil % 0.6 % [facility] Baso Absolute 0.0 0.0 - 0.1 x10(3)/mc L [facility] Immature Gran % 1.00 % [facility] Comment: Immature granulocytes(IG's)percentage and absolute count will include metamyelocytes, myelocytes, and promyelocytes. Blood smears from CBCs yielding IG's will be scanned manually for concordance. If this scan disagrees with the automated IG or if promyelocytes are noted, a manual differential will be performed. Immature Gran Absolute 0.07(H) 0.00 - 0.04 x10(3)/ L [facility] Blood 02/17/2022 10:4 0 AM EDT 02/17/2022 10:50 AM EDT Narrative Resulting Agency Comment Spec In Lab Marcelle Conte Dg Weinberg STEAM BLOCKER HEMATOLOGY ORDERA BLES [facility] [place] [address] * (ABNORMAL) Hemogram (02/17/2022 10:40 AM EDT) White Blood Cell 6.9 4.0 - 9.5 x10(3)/[facility] Red Blood Cell 3.58(L) 4.58 - 5.54 x10(6)/ L [facility] Hemoglobin 11.5(L) 13.7 - 16.5 g/dL [facility] Hematocrit 35.1(L) 40.5 - 48.5 % [facility] Mean Cell Volume 98.0(H) 82.9 - 93.1 fL [facility] Mean Cell Hemoglobin 32.1 27.5 - 32.1 pg [facility] Mean Cell Hemoglobin Concentration 32.8 32.0 - 35.7 g/dL [facility] Platelet 220 145 - 357 x10(3)/ L [facility] RDW Standard Deviation 44.3 36.0 - 45.0 [facility] RDW coefficient of variation 12.3 11.4 - 13.8 % [facility] Mean Platelet Volume 10.5 7.6 - 12.9 [facility] NRBC% auto 0.0 % [facility] NRBC Absolute 0.000 0.000 - 0.000 x10(3)/mc L [facility] Blood 02/17/2022 10:4 0 AM EDT 02/17/2022 10:50 AM EDT Narrative Resulting Agency Comment Spec In Lab Marcelle Weinberg STEAM BLOCKER HEMATOLOGY ORDERA BLES Performing Organization Address City/[facility]/ZIP Co de Phone Number [facility] [place] [address] * (ABNORMAL) CRP, acute inflammation (02/17/2022 10:40 AM EDT) C-Reactive Protein 5.0(H) <=4.9 mg/L [facility] Blood 02/17/2022 10:4 0 AM EDT 02/17/2022 10:50 AM EDT Narrative Resulting Agency Comment Spec In Lab Marcelle Dunnjeovannyjania STEAM BLOCKER CHEMISTRY ORDERAB LES Performing Organization Address [facility] Co de Phone Number [facility] [place] [address] * (ABNORMAL) Sedimentation rate (02/17/2022 10:40 AM EDT) [facility] Sedimentation Rate Automated 64(H) 3 - 46 mm/hr [facility] Comment: Effective November 02, 2019 new capillary photometric technology has resulted in a change in reference ranges. It is recommended that each ESR result be reviewed with its own age appropriate reference range. Blood 02/17/2022 10:4 0 AM EDT 02/17/2022 10:50 AM EDT Narrative Resulting Agency Comment Spec In Lab Marcelle Weinberg STEAM BLOCKER HEMATOLOGY ORDERA BLES Performing Organization Address [facility]/ZIP Co de Phone Number [facility] [place] [address] * Comprehensive metabolic panel (non-fasting) (02/17/2022 10:40 AM EDT) Glucose 94 65 - 199 mg/dL [facility] Comment:Diabetes: >=200 mg/d L plus symptoms Blood Urea Nitrogen 14 10 - 20 mg/dL [facility] Creatinine 1.06 0.80 - 1.50 mg/dL [facility] Sodium 144 135 - 145 mmol/L [facility] Potassium 3.9 3.5 - 5.0 mmol/L [facility] Comment: Please note: ??Patients with WBC >100,000 may have falsely elevated Potassium levels. ??For accurate Potassium quantification in these patients send serum separator tube (gold top) for subsequent determinations. ??Contact the Clinical Chemistry Laboratory if there are any questions. Chloride 107 98 - 107 mmol/L [facility] Carbon Dioxide 26 22 - 31 mmol/L [facility] Anion Gap 11 5 - 15 mmol/L [facility] Calcium 9.7 8.5 - 10.5 mg/dL [facility] Protein, Total 8.0 6.1 - 8.0 g/dL [facility] Albumin 4.3 3.2 - 5.2 g/dL [facility] Aspartate Aminotransferase 10 0 - 39 unit/L [facility] Alanine Aminotransferase 17 0 - 55 unit/L [facility] Alkaline Phosphatase 78 40 - 130 unit/L [facility] Bilirubin, Total 0.4 0.2 - 1.3 mg/dL [facility] Est Glomerular Filtration Rate 69 >=60 mL/min/1. 73 m?? [facility] Comment: This patient? s estimated [...] Agency Comment Spec In Lab Marcelle Weinberg STEAM BLOCKER CHEMISTRY ORDERAB LES Performing Organization Address City/State/[facility] Co de Phone Number [facility] [place] [address] documented in this encounter Visit Diagnoses Diagnosis Other ulcerative colitis with rectal bleeding documented in this encounter Care Teams Assistant Boys Track Coach Relationship Specialty Start Date End Date Deacon Watters APRN [address] [place] [address] PCP - General Family Medicine 02/17/22 documented as of this encounter
--- OUTSIDE RECORDS SUMMARY | 2024-07-11 11:14 | XMS_ITS | Encounter Summary ---
Author Organization [facility] [place] [address] Care Team Providers Care Account Services Associate Name Role Phone Deacon Watters APRN Primary Care Provider [phone]- [phone] Encounter Details Date Type Department Care Team (Late st Contact Info) Description 10/06/2022 Telephone [place] [address] Marcelle Weinberg [facility] [place] [address] Social History Tobacco Use Types Packs/Day Years [...] of this CT to Paula Alonso ( [facility]) and he would also give her office a call. documented in this encounter Plan of Treatment Upcoming Encounters Date Type Department Care Team (Late st Contact Info) Description 08/15/2024 9:00 AM EDT Office [place] [address] Dion Barlow MD [facility] [place] [address] 09/01/2024 9:40 AM EDT Office Visit Cardiology at [address] [address] Franky Shaver MD [facility] [place] [address] 09/01/2024 11:20 AM EDT Office Visit Dermatology at [facility] [address] [place] [address] Gómez Mercer MD [facility] DR [place] [address] 09/21/2024 2:45 PM EDT Office Visit [place] [address] Trung Hoyos MD [facility] [place] [address] documented as of this encounter Visit Diagnoses Not on filedocumented in this encounter Care Teams Account Services Associate Relationship Specialty Start Date End Date Deacon Watters, [address] [place] [address] PCP - General Family Medicine 02/17/22 documented as of this encounter
--- OUTSIDE RECORDS SUMMARY | 2024-07-11 11:14 | XMS_ITS | Encounter Summary ---
Author Organization [facility] Address [facility] [place] [address] Care Team Providers Care Powder Press Operator Name Role Phone Josue Wilkinson MD Primary Care Provider [phone] Encounter Details Date Type Department Care Team (Latest Contact Info) Description 04/29/2021 9:00 AM EDT Office Visit [place] [address] Marcelle Weinberg, JAZMINE [facility] [place] [address] Left sided colitis without complications Social History [...] encounter Progress Notes * Marcelle Weinberg C, PEST CONTROLLER ASSISTANT - 04/29/2021 9:00 AM EDT Primary care [...] Overview Note: ? Colonoscopy 04/08/10 (Dr[facility] Gomes [facility] [...] for Wheezing. Use with spacer ??? BASAGLAR TYLER U-100 INSULIN 100 unit/mL (3 mL) pen [...] Ref Range Status ??? COLONOSCOPY 02/26/2021 Final Value:[facility] Procedure Date: 02/26/2021 4:21 PM Patient Name: Brian Rodriguez Date of : 1950 Age: 70 Order #: [id number] Instrument Name: [id number] Procedure: Colonoscopy Indications: High risk colon cancer [...] bowel preparation was evaluated using the BBPS (Yreka Bowel Preparation Scale) with scores of: Right [...] Final ??? Surgical Pathology Report 02/26/2021 Final Value:[id number] Location: 4T; EA08; A The signing pathologist [...] MD Verified: 03/04/2021 16:33 Pathologist Performed at: [place], [place], [place] SPECIMEN(S) SUBMITTED A - right colon [...] Disease Center Section of [place]astroenter[place] [address] documented in this encounter Plan of Treatment Upcoming Encounters Date Type Department Care Team (Late st Contact Info) Description 08/15/2024 9:00 AM EDT Office [place] [address] Dion Barlow MD [facility] [place] [address] 09/01/2024 9:40 AM EDT Office Visit Cardiology at [address] [place] [address] Franky Shaver MD [facility] [place] [address] 09/01/2024 11:20 AM EDT Office Visit Dermatology at [facility] [address] [place] [address] Gómez Mercer MD [facility] DR [place] [address] 09/21/2024 2:45 PM EDT Office Visit Pain and Spine Center at [facility] [place] [address] Trung Hoyos MD [facility] [place] [address] documented as of this encounter Procedures Procedure [...] 10:22 AM EDT) Neutrophil % 65.3 % [facility] Neutrophil Absolute 3.34 1.70 - 6.10 x10(3)/ L [facility] Lymph % 23.0 % [facility] Lymphocytes Abs 1.2 0.9 - 3.2 x10(3)/ L [facility] Monocyte % 6.6 % [facility] Monocyte Abs 0.3 0.3 - 0.9 x10(3)/mc L [facility] Eos % 2.9 % [facility] Eosinophils Abs 0.2 0.0 - 0.4 x10(3)/[facility] Basophil % 1.0 % [facility] Baso Absolute 0.0 0.0 - 0.1 x10(3)/[facility] Immature Gran % 1.20 % [facility] Comment: Immature granulocytes(IG's)percentage and absolute count will include metamyelocytes, myelocytes, and promyelocytes. Blood smears from CBCs yielding IG's will be scanned manually for concordance. If this scan disagrees with the automated IG or if promyelocytes are noted, a manual differential will be performed. Immature Gran Absolute 0.06(H) 0.00 - 0.04 x10(3)/ L [facility] Blood 04/29/2021 10:2 2 AM EDT 04/29/2021 10:29 AM EDT Narrative Resulting Agency Comment Spec In Lab Marcelle Weinberg PEST CONTROLLER ASSISTANT HEMATOLOGY ORDERA BLES [facility] [place] [address] * (ABNORMAL) Hemogram (04/29/2021 10:22 AM EDT) White Blood Cell 5.1 4.0 - 9.5 x10(3)/ L [facility] Red Blood Cell 3.78(L) 4.58 - 5.54 x10(6)/mc L [facility] Hemoglobin 12.4(L) 13.7 - 16.5 gm/dL [facility] Hematocrit 37.8(L) 40.5 - 48.5 % [facility] Mean Cell Volume 100.0(H) 82.9 - 93.1 fL [facility] Mean Cell Hemoglobin 32.8(H) 27.5 - 32.1 pg [facility] Mean Cell Hemoglobin Concentration 32.8 32.0 - 35.7 gm/dL [facility] Platelet 196 145 - 357 x10(3)/mc L [facility] RDW Standard Deviation 45.1(H) 36.0 - 45.0 [facility] RDW coefficient of variation 12.2 11.4 - 13.8 % [facility] Mean Platelet Volume 11.5 7.6 - 12.9 [facility] NRBC% auto 0.0 % [facility] NRBC Absolute 0.000 0.000 - 0.000 x10(3)/mc L [facility] Blood 04/29/2021 10:2 2 AM EDT 04/29/2021 10:29 AM EDT Narrative Resulting Agency Comment Spec In Lab Marcelle Weinberg APRN HEMATOLOGY ORDERA BLES [facility] [place] [address] * CRP, acute inflammation (04/29/2021 10:22 AM EDT) C-Reactive Protein <3.0 <=4.9 mg/L [facility] Blood 04/29/2021 10:2 2 AM EDT 04/29/2021 10:29 AM EDT Narrative Resulting Agency Comment Spec In Lab Marcelle Weinberg PEST CONTROLLER ASSISTANT CHEMISTRY ORDERAB LES Performing Organization Address [facility]/ZIP Co de Phone Number [facility] [place] [address] * Sedimentation rate (04/29/2021 10:22 AM EDT) Sedimentation Rate Automated 32 3 - 46 mm/hr [facility] Comment: Effective November 02, 2019 new capillary photometric technology has resulted in a change in reference ranges. It is recommended that each ESR result be reviewed with its own age appropriate reference range. Blood 04/29/2021 10:2 2 AM EDT 04/29/2021 10:29 AM EDT Narrative Resulting Agency Comment Spec In Lab MonalisaDg Weinberg APRN HEMATOLOGY ORDERA BLES Performing Organization Address [facility] Co de Phone Number [facility] [place] [address] * (ABNORMAL) Comprehensive metabolic panel (non-fasting) (04/29/2021 10:22 AM EDT) Glucose 130 65 - 199 mg/dL [facility] Comment:Diabetes: >=200 mg/d L plus symptoms Blood Urea Nitrogen 21(H) 10 - 20 mg/dL [facility] Creatinine 1.14 0.80 - 1.50 mg/dL [facility] Sodium 142 135 - 145 mmol/L [facility] Potassium 4.4 3.5 - 5.0 mmol/L [facility] Comment: Please note: ??Patients with WBC >100,000 may have falsely elevated Potassium levels. ??For accurate Potassium quantification in these patients send serum separator tube (gold top) for subsequent determinations. ??Contact the Clinical Chemistry Laboratory if there are any questions. Chloride 107 98 - 107 mmol/L [facility] Carbon Dioxide 25 22 - 31 mmol/L [facility] Anion Gap 10 5 - 15 mmol/L [facility] Calcium 10.0 8.5 - 10.5 mg/dL [facility] Protein, Total 8.0 6.1 - 8.0 gm/dL [facility] Albumin 4.4 3.2 - 5.2 gm/dL [facility] Aspartate Aminotransferase 14 0 - 39 unit/L [facility] Alanine Aminotransferase 16 0 - 55 unit/L [facility] Alkaline Phosphatase 68 40 - 130 unit/L [facility] Bilirubin, Total 0.3 0.2 - 1.3 mg/dL [facility] Est Glomerular Filtration Rate 64 >=60 mL/min/1. 73 m?? [facility] Comment: This patient? s estimated [...] Agency Comment Spec In Lab Marcelle Weinberg PEST CONTROLLER ASSISTANT CHEMISTRY ORDERAB LES Performing Organization Address City/State/[facility] Co de Phone Number [facility] [place] [address] documented in this encounter Visit Diagnoses Diagnosis Left sided colitis without complications Left sided ulcerative (chronic) colitis documented in this encounter Care Teams Powder Press Operator Relationship Specialty Start Date End Date Josue Wilkinson MD PCP - General General Internal Medicine 02/14/21 9/ documented as of this encounter
--- OUTSIDE RECORDS SUMMARY | 2024-07-11 11:14 | XMS_ITS | Encounter Summary ---
[place] [address] Care Team Providers Care Physical Scientist Name Role Phone Deacon Watters APRN Primary Care Provider [phone]- [phone] Encounter Details Date Type Department Care Team (Late st Contact Info) Description 10/15/2022 Tele[place] [phone] Roselia Coronado Social History Tobacco Use Types [...] 9:00 AM EDT Office [place] [address] Dion Barlow MD [facility] [place] [address] 09/01/2024 9:40 AM EDT Office Visit Cardiology at [address] [place] [address] Franky Shaver MD [facility] [place] [address] 09/01/2024 11:20 AM EDT Office Visit Dermatology at [facility] [address] [place] [address] Gómez Mercer MD [facility] [place] [address] 09/21/2024 2:45 PM EDT Office Visit [place] [address] Trung Hoyos MD [facility] [place] [address] documented as of this encounter Visit Diagnoses Not on filedocumented in this encounter Care Teams Physical Scientist Relationship Specialty Start Date End Date Deacon Watters, INDUSTRIAL DESIGN INTERN [address] [facility] [address] [place] [address] PCP - General Family Medicine 02/17/22 documented as of this encounter
--- OUTSIDE RECORDS SUMMARY | 2024-07-11 11:14 | XMS_ITS | Encounter Summary ---
Author Organization [facility] Address [facility] [place] [address] Care Team Providers Care Burnt Lime Drawer Name Role Phone Deacon Watters APRN Primary Care Provider +1- [phone] Encounter Details Date Type Department Care Team (Late st Contact Info) Description 03/28/2022 3:15 PM EDT - 03/28/2022 4:00 PM EDT Surgery [place] [address] Mona Turner MD [facility] [place] [address] COLONOSCOPY FLEXIBLE, WITH BX (WRVU 3.56) Social [...] occurs, please contact your Doctor. Please call [phone] before 8pm Mon-Fri with problems, questions or concerns. If you call after 8pm or on weekends, call the Hospital at [phone] and ask to speak to the [employer] personal shopper and the drill operator will contact that person for you. When should you call for help? Call 246 anytime you think you may need emergency [...] any problems. Where can you learn more? [facility] View your After Visit Summary and more online at [email or web address] If you would like to provide [...] cost to you. Content Version: 12.2 ?? 2642-1731 [employer] Care instructions adapted under license by [facility]. If you have questions about a medical condition or this instruction, always ask your healthcare professional. [employer] disclaims any warranty or liability for your use of this information. documented in this encounter Medications at Time of Discharge Medication Sig Dispensed Refills Start Date End Date gabapentin (Neurontin) 300 mg Capsule Take 300 [...] by mouth daily. 90 tablet 3 11/22/2012 nystatin (Mycostatin) 100,000 unit/mL Suspension Place 500,000 Units inside cheek. 07/08/2021 06/30/2024 sulfamethoxazole-trime thoprim DS (Bactrim DS) 800-160 mg Tablet Take 1 tablet by mouth. 07/19/2021 07/04/2024 SUMAtriptan (Imitrex) 50 mg Tablet TAKE 1 TABLET BY MOUTH 1 TIME NEEDED FOR MIGRAINE HEADACHE 01/13/2022 07/04/2024 budesonide (Uceris) 2 mg/actuation FoamIndications:Left sided [...] rectally nightly. 90 g 3 03/15/2018 09/29/2022 propranolol (INDERAL LA) 80 mg Capsule,Sustained Action [...] 9:00 AM EDT Office Visit [place] [phone] Dion Barlow MD [facility] [place] [address] 09/01/2024 9:40 AM EDT Office Visit Cardiology at [address] [phone] Franky Shaver MD [facility] [place] [address] 09/01/2024 11:20 AM EDT Office Visit Dermatology at [address] [address] Gómez Mercer MD [facility] DR [place] [address] 09/21/2024 2:45 PM EDT Office Visit [facility] [place] [phone] Trung Hoyos MD [facility] [place] [address] documented as of this encounter Procedures Procedure Name Priority Date/Time Associated Diagnosis Comments SURGICAL PATHOLOGY REPORT Routine 03/28/2022 4:22 PM EDT SPECIMEN TO PATHOLOGY Routine 03/28/2022 4:22 PM EDT SPECIMEN TO PATHOLOGY Routine 03/28/2022 4:22 PM EDT SPECIMEN TO PATHOLOGY Routine 03/28/2022 4:22 PM EDT Colonoscopy, Biopsy ([id number]) 03/28/2022 3:30 PM EDT Other ulcerative colitis with rectal bleeding COLONOSCOPY Routine 03/28/2022 3:15 PM EDT documented in this encounter Results * Surgical Pathology Report (03/28/2022 4:22 PM EDT) Final Diagnosis [id number] ? Location: 4T; 12; A The signing pathologist has (i) examined [...] ??Multiple levels examined. Electronically signed by: ?Nitza HRAVEY PhD, Christina Verified: ??04/03/2022 15:08 ??Pathologist Performed at: ??-[facility] [place], [place], [place] SPECIMEN(S) SUBMITTED A - Sigmoid bx, [...] labeled C1. ??shb 04/03/2022 3:08 PM EDT [facility] GI Biopsy 03/28/2022 4:22 PM EDT 03/28/2022 4:22 PM EDT GI Biopsy 03/28/2022 4:22 PM EDT 03/28/2022 4:22 PM EDT GI Biopsy 03/28/2022 4:22 PM EDT 03/28/2022 4:22 PM EDT Mona Turner MD PATHOLOGY/CYTOLOGY O CEE [facility] [place] [address] * Specimen to Pathology (03/28/2022 4:22 PM EDT) AP Specimen 03/28/2022 4:22 PM EDT 03/28/2022 4:22 PM EDT Narrative [facility] - 03/28/2022 4:22 PM EDT Specimen requisition ordered. ??Separate Pathology report to follow Mona Turner MD PATHOLOGY/CYTOLOGY O CEE [facility] [place] [address] * Specimen to Pathology (03/28/2022 4:22 PM EDT) AP Specimen 03/28/2022 4:22 PM EDT 03/28/2022 4:22 PM EDT Narrative [facility] - 03/28/2022 4:22 PM EDT Specimen requisition ordered. ??Separate Pathology report to follow Mona Turner MD PATHOLOGY/CYTOLOGY O CEE Performing Organization Address [facility] [place] [address] * Specimen to Pathology (03/28/2022 4:22 PM EDT) AP Specimen 03/28/2022 4:22 PM EDT 03/28/2022 4:22 PM EDT Narrative [facility] - 03/28/2022 4:22 PM EDT Specimen requisition ordered. ??Separate Pathology report to follow Mona Turner MD PATHOLOGY/CYTOLOGY O CEE Performing Organization Address [facility] [place] [address] * COLONOSCOPY (03/28/2022 3:15 PM EDT) COLONOSCOPY [facility] Endoscopy Procedure Date: 03/28/2022 3:15 PM ? Patient Name: Brian Rodriguez ? N: [id number] ? Date of : 1950 ? Age: 71 ? Order #: [id number] ? Instrument Name: [id number] ? Procedure: ? Colonoscopy Indications: ? Follow-up of ulcerative colitis Providers: ? Mona Turner MD, April Augustine ? Cristela, RONY, Shay Maynard MD: ?LAnalia Barlow MD, Deacon Dior ? Downey Medicines: ? Midazolam 4 mg IV, Fentanyl [...] ? was evaluated using the BBPS ? ([place] Bowel Preparation Scale) ? with scores of: [...] Procedure Code(s): ? --- Professional --- ? 07992, Colonoscopy, flexible; with ? removal of tumor(s), polyp(s), or ? other lesion(s) by snare technique ? 94800, 59, Colonoscopy, flexible; ? with biopsy, single or multiple CPT copyright 2020 [employer]. All rights reserved. The codes documented in this report are preliminary and upon medical record coder review may be revised to meet current [...] RN) documented in this encounter Care Teams Burnt Lime Drawer Relationship Specialty Start Date End Date Deacon Watetrs, JAZMINE [address] [place] [address] [address] [place] [address] PCP - General Family Medicine 02/17/22 documented as of this encounter
--- OUTSIDE RECORDS SUMMARY | 2024-07-11 11:14 | XMS_ITS | Encounter Summary ---
Author Organization [facility] [place] [address] Care Team Providers Care Clinical Documentation Consultant Name Role Phone DuongVeliakip Wells APRN Primary Care Provider +1- [phone] Encounter Details Date Type Department Care Team (Late st Contact Info) Description 11/10/2022 Telephone [place] [address] Dianna Shen RN Social History [...] 9:00 AM EDT Office Visit [place] [address] Dion Barlow MD [facility] [place] [address] 09/01/2024 9:40 AM EDT Office Visit Cardiology at [address] [place] [phone] Franky Shaver MD [facility] [place] [address] 09/01/2024 11:20 AM EDT Office Visit Dermatology at [facility] [address] [place] [address] Gómez Mercer MD [facility] [place] [address] 09/21/2024 2:45 PM EDT Office Visit [facility] [place] [address] Trung Hoyos MD [facility] [place] [address] documented as of this encounter Visit Diagnoses Not on filedocumented in this encounter Care Teams Clinical Documentation Consultant Relationship Specialty Start Date End Date Deacon Watters APRN [address] [place] [address] PCP - General Family Medicine 02/17/22 documented as of this encounter
--- OUTSIDE RECORDS SUMMARY | 2024-07-11 11:14 | XMS_ITS | Encounter Summary ---
[place] [address] Care Team Providers Care Agricultural Appraiser Name Role Phone Deacon Watters APRN Primary Care Provider +1- [phone] Encounter Details Date Type Department Care Team (Late st Contact Info) Description 02/26/2022 Telephone [place] [phone] Dianna Shen RN Social History Tobacco Use [...] Brian reminding him to get labs. Called [facility] and they had not been done yet. * Telephone Encounter - Dianna Shen RN - 02/26/2022 4:06 PM EDT TC placed to follow up with Brian. Reports improvement in diarrhea. Says he has a scheduled colonoscopy 03/28. Discussed elevation in labs of CRP and ESR, as well as mild anemia per Farideh. Patient plans to have labs rechecked at [facility] on Thursday. documented in this encounter Plan of Treatment Upcoming Encounters Date Type Department Care Team (Late st Contact Info) Description 08/15/2024 9:00 AM EDT Office [place] [phone] Dion Barlow MD [facility] [place] [address] 09/01/2024 9:40 AM EDT Office Visit Cardiology at [address] [address] Franky Shaver MD [facility] [place] [address] 09/01/2024 11:20 AM EDT Office Visit Dermatology at [address] [address] Gómez Mercer MD [facility] DR EDDIE SANCHEZ-DERMATOLOGY [place], [place] [address] 09/21/2024 2:45 PM EDT Office Visit [place] [address] Trung Hoyos MD [facility] [place] [address] documented as of this encounter Visit Diagnoses Not on filedocumented in this encounter Care Teams Agricultural Appraiser Relationship Specialty Start Date End Date Deacon Watters APRN [address] [place] [address] [address] [facility] [address] [place] [address] PCP - General Family Medicine 02/17/22 documented as of this encounter
--- OUTSIDE RECORDS SUMMARY | 2024-07-11 11:14 | XMS_ITS | Encounter Summary ---
Author Organization [facility] Address [facility] [place] [address] Care Team Providers Care Starch Dumper Name Role Phone DuongVeliakip Wells APRN Primary Care Provider +1- [phone] Encounter Details Date Type Department Care Team (Late st Contact Info) Description 02/26/2022 Orders Only [place] [phone] Dianna Shen, RN Other ulcerative colitis with [...] 9:00 AM EDT Office Visit [place] [phone] Dion Barlow MD [facility] [place] [address] 09/01/2024 9:40 AM EDT Office Visit Cardiology at [address] [phone] Franky Shaver MD [facility] [place] [place] [address] 09/01/2024 11:20 AM EDT Office Visit Dermatology at [facility] [address] [place] [address] Gómez Mercer MD [facility] DR EDDIE [place] [address] 09/21/2024 2:45 PM EDT Office Visit [facility] [place] [phone] Trung Hoyos MD [facility] [place] [address] documented as of this encounter Results * CRP, acute inflammation (09/29/2022 12:09 PM EST) Pathologist [facility] C-Reactive Protein <3.0 <=4.9 mg/L [facility] Blood 09/29/2022 12:0 9 PM EST 09/29/2022 12:15 PM EST Narrative Resulting Agency Comment Spec In Lab Marcelle Weinberg PITCH FILLER CHEMISTRY ORDERAB LES [facility] [place] [address] * Sedimentation rate (09/29/2022 12:09 PM EST) Sedimentation Rate Automated 38 3 - 46 mm/hr [facility] Comment: Effective November 02, 2019 new capillary photometric technology has resulted in a change in reference ranges. It is recommended that each ESR result be reviewed with its own age appropriate reference range. Blood 09/29/2022 12:0 9 PM EST 09/29/2022 12:15 PM EST Narrative Resulting Agency Comment Spec In Lab Marcelle Weinberg PITCH FILLER HEMATOLOGY ORDERA BLES [facility] [place] [address] documented in this encounter Visit Diagnoses Diagnosis Other ulcerative colitis with rectal bleeding documented in this encounter Care Teams Starch Dumper Relationship Specialty Start Date End Date Deacon Watters APRN [address] [place] [address] PCP - General Family Medicine 02/17/22 documented as of this encounter
--- OUTSIDE RECORDS SUMMARY | 2024-07-11 11:14 | XMS_ITS | Encounter Summary ---
Author Organization [facility] [place] [address] Care Team Providers Care Practice Administrator Name Role Phone Deacon Watters APRN Primary Care Provider +1- [phone] Encounter Details Date Type Department Care Team (Late st Contact Info) Description 11/20/2022 Telephone [place] [phone] Jarret Roa RN Social History Tobacco Use [...] 9:00 AM EDT Office Visit [place] [phone] Dion Barlow MD [facility] [place] [address] 09/01/2024 9:40 AM EDT Office Visit Cardiology at [address] [place] [address] Franky Shaver MD [facility] [place] [address] 09/01/2024 11:20 AM EDT Office Visit Dermatology at [facility] [address] [place] [address] Gómez Mercer MD [facility] [place] [address] 09/21/2024 2:45 PM EDT Office Visit [facility] [place] [address] Trung Hoyos MD [facility] [place] [address] documented as of this encounter Visit Diagnoses Not on filedocumented in this encounter Care Teams Practice Administrator Relationship Specialty Start Date End Date Deacon Watters APRN [address] [place] [address] [address] [place] [address] PCP - General Family Medicine 02/17/22 documented as of this encounter
--- OUTSIDE RECORDS SUMMARY | 2024-07-11 11:14 | XMS_ITS | Encounter Summary ---
Author Organization [facility] Address [facility] [place] [address] Care Team Providers Care Safety Sealer Name Role Phone Josue Wilkinson MD Primary Care Provider [phone] Encounter Details Date Type Department Care Team (Late st Contact Info) Description 04/16/2021 Telephone [place] [phone] Mona Cherry Social History Tobacco Use Types [...] Encounters Date Type Department Care Team (Late Contact Info) Description 08/15/2024 9:00 AM EDT Office [place] [phone] Dion Barlow MD [facility] [place] [address] 09/01/2024 9:40 AM EDT Office Visit Cardiology at [address] [phone] Franky Shaver MD [facility] [place] [address] 09/01/2024 11:20 AM EDT Office Visit Dermatology at [facility] [address] [place] [address] Gómez Mercer MD [facility] [place] [address] 09/21/2024 2:45 PM EDT Office Visit Pain and Spine Center at [facility] [place] [address] Trung Hoyos MD [facility] [address] documented as of this encounter Visit Diagnoses Not on filedocumented in this encounter Care Teams Safety Sealer Relationship Specialty Start Date End Date Josue Wilkinson MD PCP - General General Internal Medicine 02/14/21 9/3 documented as of this encounter
--- OUTSIDE RECORDS SUMMARY | 2024-07-11 11:14 | XMS_ITS | Encounter Summary ---
Author Organization [facility] [place] [address] Care Team Providers Care Merchandise Clerk Name Role Phone Josue Wilkinson MD Primary Care Provider [phone] Encounter Details Date Type Department Care Team (Latest Contact Info) Description 05/31/2021 1:35 PM EDT Laboratory Appointment Lab [address] [place] [phone] Left sided colitis without complications Social History [...] 9:00 AM EDT Office [place] [phone] Dion Barlow MD [facility] [place] [address] 09/01/2024 9:40 AM EDT Office Visit Cardiology at [address] [phone] Franky Shaver MD [facility] [place] [address] 09/01/2024 11:20 AM EDT Office Visit Dermatology at [facility] [address] [place] [address] Gómez Mercer MD [facility] DR EDDIE [place] [address] 09/21/2024 2:45 PM EDT Office Visit Pain and Spine Center at [facility] [place] [phone] Trung Hoyos MD [facility] [place] [address] documented as of this encounter Procedures Procedure [...] 1:49 PM EDT) Neutrophil % 70.8 % [facility] Neutrophil Absolute 5.02 1.70 - 6.10 x10(3)/[facility] Lymph % 18.5 % [facility] Lymphocytes Abs 1.3 0.9 - 3.2 x10(3)/[facility] Monocyte % 6.9 % [facility] Monocyte Abs 0.5 0.3 - 0.9 x10(3)/[facility] Eos % 2.8 % [facility] Eosinophils Abs 0.2 0.0 - 0.4 x10(3)/[facility] Basophil % 0.6 % [facility] Baso Absolute 0.0 0.0 - 0.1 x10(3)/[facility] Immature Gran % 0.40 % [facility] Comment: Immature granulocytes(IG's)percentage and absolute count will include metamyelocytes, myelocytes, and promyelocytes. Blood smears from CBCs yielding IG's will be scanned manually for concordance. If this scan disagrees with the automated IG or if promyelocytes are noted, a manual differential will be performed. Immature Gran Absolute 0.03 0.00 - 0.04 x10(3)/[facility] Blood 05/31/2021 1:49 PM EDT 05/31/2021 1:52 PM EDT Narrative Resulting Agency Comment Spec In Lab Marcelle Weinberg [employer]ULAWAY DRIVER HEMATOLOGY ORDERA BLES [facility] [place] [address] * (ABNORMAL) Hemogram (05/31/2021 1:49 PM EDT) White Blood Cell 7.1 4.0 - 9.5 x10(3)/[facility] Red Blood Cell 3.85(L) 4.58 - 5.54 x10(6)/ L [facility] Hemoglobin 12.6(L) 13.7 - 16.5 gm/dL [facility] Hematocrit 38.4(L) 40.5 - 48.5 % [facility] Mean Cell Volume 99.7(H) 82.9 - 93.1 fL [facility] Mean Cell Hemoglobin 32.7(H) 27.5 - 32.1 pg [facility] Mean Cell Hemoglobin Concentration 32.8 32.0 - 35.7 gm/dL [facility] Platelet 215 145 - 357 x10(3)/mc L [facility] RDW Standard Deviation 45.1(H) 36.0 - 45.0 fL [facility] RDW coefficient of variation 12.3 11.4 - 13.8 % [facility] Mean Platelet Volume 11.2 7.6 - 12.9 fL [facility] NRBC% auto 0.0 % [facility] NRBC Absolute 0.000 0.000 - 0.000 x10(3)/mc L [facility] Blood 05/31/2021 1:49 PM EDT 05/31/2021 1:52 PM EDT Narrative Resulting Agency Comment Spec In Lab Marcelle Weinberg [employer] DRIVER HEMATOLOGY ORDERA BLES Performing Organization Address City/[facility]/ZIP Co de Phone Number [facility] [place] [address] * Ferritin (05/31/2021 1:49 PM EDT) [facility] Ferritin 94 30 - 400 ng/mL [facility] Comment: Pediatric reference ranges not verified at [facility], interpret with caution. Reference ranges for females greater than 50 years of age approach values for men, i.e., 30-400 ng/mL. Blood 05/31/2021 1:49 PM EDT 05/31/2021 1:52 PM EDT Narrative Resulting Agency Comment Spec In Lab Marcelle Weinberg AUT[employer]AW[employer] DRIVER CHEMISTRY ORDERAB LES Performing Organization Address City/[facility]/ZIP Co de Phone Number [facility] [place] [address] * Iron and TIBC (05/31/2021 1:49 PM EDT) Iron 86 45 - 160 mcg/dL [facility] TIBC 286 250 - 450 mcg/dL [facility] Iron Saturation 30 20 - 50 % [facility] Blood 05/31/2021 1:49 PM EDT 05/31/2021 1:52 PM EDT Narrative Resulting Agency Comment Spec In Lab Marcelle Weinberg [employer] DRIVER CHEMISTRY ORDERAB LES Performing Organization Address City/[facility]/ZIP Co de Phone Number [facility] [place] [address] * Vitamin B12 (05/31/2021 1:49 PM EDT) Vitamin B12 389 232 - 1,245 pg/mL [facility] Blood 05/31/2021 1:49 PM EDT 05/31/2021 1:52 PM EDT Narrative Resulting Agency Comment Spec In Lab Marcelle Dunnjeovannyjania AUT[employer] DRIVER CHEMISTRY ORDERAB LES Performing Organization Address City/[facility]/ZIP Co de Phone Number [facility] [place] [address] documented in this encounter Visit Diagnoses Diagnosis Left sided colitis without complications Left sided ulcerative (chronic) colitis documented in this encounter Care Teams Merchandise Clerk Relationship Specialty Start Date End Date Josue Wilkinson MD PCP - General General Internal Medicine 02/14/21 9/3 documented as of this encounter
--- OUTSIDE RECORDS SUMMARY | 2024-07-11 11:14 | XMS_ITS | Encounter Summary ---
[place] [address] Care Team Providers Care Chemical Process Equipment Operator Name Role Phone Duong Deacon Wells APRN Primary Care Provider +1- [phone] Encounter Details Date Type Department Care Team (Late st Contact Info) Description 02/12/2023 Telephone [place] [phone] Kelly Castillo RN Social History Tobacco Use Types Packs/Day [...] local ER. He would likely go to [place] if this is the case. Will ask regular IBD team to f/u with him in the AM. documented in this encounter Plan of Treatment Upcoming Encounters Date Type Department Care Team (Late st Contact Info) Description 08/15/2024 9:00 AM EDT Office [place] [phone] Dion Barlow MD [facility] [address] 09/01/2024 9:40 AM EDT Office Visit Cardiology at [address] [place] [phone] Franky Shaver MD [facility] [place] [address] 09/01/2024 11:20 AM EDT Office Visit Dermatology at [facility] [address] [place] [phone] Gómez Mercer MD [facility] [place] [address] 09/21/2024 2:45 PM EDT Office Visit [place] [phone] Trung Hoyos MD [facility] [place] [place] [address] documented as of this encounter Visit Diagnoses Not on filedocumented in this encounter Care Teams Chemical Process Equipment Operator Relationship Specialty Start Date End Date Deacon Watters, JAZMINE [address] [place] [address] [address] [facility] [address] [place] [address] PCP - General Family Medicine 02/17/22 documented as of this encounter
--- OUTSIDE RECORDS SUMMARY | 2024-07-11 11:14 | XMS_ITS | Encounter Summary ---
Author Organization [facility] Address [facility] [place] [address] Care Team Providers Care Manager Corporate Communications Name Role Phone Deacon Watters APRN Primary Care Provider +1- [phone] Encounter Details Date Type Department Care Team (Late st Contact Info) Description 09/29/2022 11:00 AM EST Office [place] [address] Marcelle Weinberg BODILY INJURY ADJUSTER [facility] [place] [address] Left sided colitis without complications; Other ulcerative [...] documented in this encounter Progress Notes * Sultana Marcelle Conte, JAZMINE - 09/29/2022 11:00 AM EST Primary care [...] Note: ? Colonoscopy 04/08/10 (Dr. Gomes [facility]) - inflammation only within the rectum and sigmoid; extent of the exam was to the hepatic flexure; biopsies proximal to the sigmoid nl ?? Repeat exam 11/27/11 ([facility]): mildly active colitis in [...] was cancer, followed by Dr. Carrillo, at [facility]. IBD Questionnaire No questionnaires on file. IBD [...] Vitals: 09/29/22 1108 BP: 153/72 BP Location ([facility]): Left arm Patient Position: Sitting BP Cuff [...] Disease Center Section of Gastroenterology [place] [address] documented in this encounter Miscellaneous Notes * Addendum Note - Andres De Dios - 09/29/2022 11:00 AM ESTAddended by: ANDRES DE DIOS on: 09/29/2022 12:05 PM Modules accepted: Orders documented in this encounter Plan of Treatment Upcoming Encounters Date Type Department Care Team (Late st Contact Info) Description 08/15/2024 9:00 AM EDT Office [place] [address] iDon Barlow MD [facility] [place] [address] 09/01/2024 9:40 AM EDT Office Visit Cardiology at [address] [place] [phone] Franky Shaver MD [facility] [place] [address] 09/01/2024 11:20 AM EDT Office Visit Dermatology at [facility] [address] [place] [phone] Gómez Mercer MD [facility] [place] [address] 09/21/2024 2:45 PM EDT Office Visit [place] [phone] Trung Hoyos MD [facility] [place] [address] documented as of this encounter Procedures Procedure [...] Agency Comment Spec In Lab Marcelle Weinberg BODILY INJURY ADJUSTER HEMATOLOGY ORDERA BLES Performing Organization Address [facility]/ZIP Co de Phone Number [facility] [place] [place] [address] * CRP, acute inflammation (09/29/2022 12:09 PM EST) C-Reactive Protein <3.0 <=4.9 mg/L [facility] Blood 09/29/2022 12:0 9 PM EST 09/29/2022 12:15 PM EST Narrative Resulting Agency Comment Spec In Lab Marcelle Weinberg BODILY INJURY ADJUSTER CHEMISTRY ORDERAB LES Performing Organization Address [facility] [[email or web address]] Co de Phone Number [facility] [place] [address] * Creatinine (09/29/2022 12:09 PM EST) Creatinine 1.10 0.80 - 1.50 mg/dL [facility] Est Glomerular Filtration Rate 70 >=60 mL/min/1. 73 m?? [facility] Agency Comment Spec In Lab Marcelle Dunnjeovannyjania BODILY INJURY ADJUSTER CHEMISTRY ORDERAB LES [facility] [place] [address] documented in this encounter Visit Diagnoses Diagnosis Left sided colitis without complications Left sided ulcerative (chronic) colitis Other ulcerative colitis with rectal bleeding documented in this encounter Care Teams Manager Corporate Communications Relationship Specialty Start Date End Date Deacon Watters APRN [address] [place] [address] PCP - General Family Medicine 02/17/22 documented as of this encounter
--- OUTSIDE RECORDS SUMMARY | 2024-07-11 11:14 | XMS_ITS | Encounter Summary ---
[place] [address] Care Team Providers Care Data Analytics Analyst Name Role Phone Deacon Watters APRN Primary Care Provider +1- [phone] Encounter Details Date Type Department Care Team (Late st Contact Info) Description 05/05/2022 [place] [phone] Dianna Shen RN Social History Tobacco Use [...] - 05/23/2022 8:27 AM EDT Marbella from [facility] called to check on the status of this CT she can be reached at [phone]. * Telephone Encounter - Dianna Shen RN - 05/19/2022 11:04 AM EDT 05/16 TC to Brian to see where is at as far as abdominal pain. He states that pain has not improved. Asked if he has metal in his body and he states that he does. * Telephone Encounter - Dianna Shen RN - 05/05/2022 4:20 PM EDT left from radiology at [facility]. Due to contrast shortage, contrast IV is not being utilized for outpatient at their facility. They could schedule CT with oral only. Otherwise they are booking out to August for patients who need IV contrast. documented in this encounter Plan of Treatment Upcoming Encounters Date Type Department Care Team (Late st Contact Info) Description 08/15/2024 9:00 AM EDT Office [place] [address] Dion Barlow MD [facility] [place] [address] 09/01/2024 9:40 AM EDT Office Visit Cardiology at [address] [address] Franky Shaver MD [facility] [place] [address] 09/01/2024 11:20 AM EDT Office Visit Dermatology at [address] [place] [address] Gómez Mercer MD [facility] DR EDD[place] [address] 09/21/2024 2:45 PM EDT Office Visit Pain and Spine Center at [facility] [place] [phone] Trung Hoyos MD [facility] [place] [address] documented as of this encounter Visit Diagnoses Not on filedocumented in this encounter Care Teams Data Analytics Analyst Relationship Specialty Start Date End Date Deacon Watters, JAZMINE [address] [place] [address] PCP - General Family Medicine 02/17/22 documented as of this encounter
--- OUTSIDE RECORDS SUMMARY | 2024-07-11 11:14 | XMS_ITS | Encounter Summary ---
Author Organization [facility] [place] [address] Care Team Providers Care Director Of Media Name Role Phone Deacon Watters APRN Primary Care Provider +1- [phone] Encounter Details Date Type Department Care Team (Late st Contact Info) Description 11/03/2022 [place]phone [place] [phone] Jarret Roa RN Social History Tobacco Use [...] weeks. Labs and stool studies sent to [facility]- He will call when he drops [...] 11/03/2022 2:40 PM EST Per Farideh Weinberg, EVALUATION MANAGER: Could you please check on him in [...] 9:00 AM EDT Office [place] [address] Dion Barlow MD [facility] [place] [address] 09/01/2024 9:40 AM EDT Office Visit Cardiology at [address] [address] Franky Shaver MD [facility] [place] [address] 09/01/2024 11:20 AM EDT Office Visit Dermatology at [facility] [address] [place] [address] Gómez Mercer MD [facility] DR EDD[place] [address] 09/21/2024 2:45 PM EDT Office Visit Pain and Spine Center at [facility] [place] [address] Trung Hoyos MD [facility] [place] [address] documented as of this encounter Visit Diagnoses Not on filedocumented in this encounter Care Teams Director Of Media Relationship Specialty Start Date End Date Deacon Watters APRN [address] [place] [address] [address] [place] [address] PCP - General Family Medicine 02/17/22 documented as of this encounter
--- OUTSIDE RECORDS SUMMARY | 2024-07-11 11:14 | XMS_ITS | Encounter Summary ---
Author Organization [facility] [place] [address] Care Team Providers Care Loss Prevention Research Engineer Name Role Phone Deacon Watters Priscilla LUCERO Primary Care Provider +1- [phone] Reason for Visit * Reason Onset Date Comments Medication Refill 08/22/2022 Encounter Details Date Type Department Care Team (Late st Contact Info) Description 08/22/2022 [place] [phone] Dion Barlow MD [facility] [place] [address] Social History Tobacco Use Types Packs/Day Years [...] 9:00 AM EDT Office [place] [phone] Dion Barlow MD [facility] [place] [address] 09/01/2024 9:40 AM EDT Office Visit Cardiology at [address] [place] [address] Franky Shaver MD [facility] [place] [address] 09/01/2024 11:20 AM EDT Office Visit Dermatology at [facility] [address] [place] [address] Gómez Mercer MD [facility] [place] [address] 09/21/2024 2:45 PM EDT Office Visit [place] [address] Trung Hoyos MD [facility] [place] [address] documented as of this encounter Visit Diagnoses Not on filedocumented in this encounter Care Teams Loss Prevention Research Engineer Relationship Specialty Start Date End Date Deacon Watters, WHITEPRINTING MACHINE OPERATOR [address] [place] [address] PCP - General Family Medicine 02/17/22 documented as of this encounter
--- OUTSIDE RECORDS SUMMARY | 2024-07-11 11:14 | XMS_ITS | Encounter Summary ---
Author Organization Counts Include [facility] Address [facility] [place] [address] Care Team Providers Care Field Trainer Name Role Phone Deacon Watters APRN Primary Care Provider +1- [phone] Reason for Referral * Diagnostic Test (Routine) - Closed Specialty Diagnoses / Procedures Referred By Contac t Referred To Contact Radiology Diagnoses Left sided colitis without complications Procedures CT Abdomen & Pelvis w Contrast Dion Barlow MD [facility] DR [place] [address] Referral ID Status Reason Start Date Expiration Date V isits Requested Visits Authorized [id number] Closed Specialty Service Requested 04/22/2022 10/22/2023 1 1 Encounter Details Date Type Department Care Team (Late st Contact Info) Description 04/22/2022 8:00 AM EDT Office [place] [address] Dion Barlow MD [facility] [place] [address] Left sided colitis without complications; Tick bite [...] - CT scan to be arranged at [facility] in [facility] for left lower quadrant abd pain. [...] Overview Note: ? Colonoscopy 04/08/10 (Dr. Gomes [facility]) - inflammation only within the rectum and sigmoid; extent of the exam was to the hepatic flexure; biopsies proximal to the sigmoid nl ?? Repeat exam 11/27/11 ([facility] [...] Interval History: Last visit with Farideh Mathur DIRECTOR OF CASINO 01/2022 Just had colo with Dr. Turner [...] adenopathy and no thyromegaly. HEENT: PERRL, EOMI, BULKER and OP clear without ulceration or lesions. [...] Range Status ??? COLONOSCOPY 03/28/2022 Final Value:[facility] Endoscopy Procedure Date: 03/28/2022 3:15 PM Patient Name: Brian Rodriguez Date of : 1950 Age: 71 Order #: [id number] Instrument Name: [id number] Procedure: Colonoscopy Indications: Follow-up of ulcerative colitis Providers: Mona Turner MD, April Archibald RN, Shay Marques Referring MD: Davina Barlow [...] bowel preparation was evaluated using the BBPS ([place] Bowel Preparation Scale) with scores of: Right [...] referring physician. Procedure Code(s): --- Professional --- 89217, Colonoscopy, flexible; with removal of tumor(s), polyp(s), or other lesion(s) by snare technique 68987, 59, Colonoscopy, flexible; with biopsy, single or multiple CPT copyright 2020 [employer]. All rights reserved. The codes documented in this report are preliminary and upon housekeeper caregiver review may be revised to meet current compliance requirements. Attending Participation: I personally performed the entire procedure. Mona Turner MD Mona Turner MD 03/28/2022 4:33:58 PM This report has been signed electronically. Number of Addenda: 0 Note Initiated On: 03/28/2022 3:15 PM ??? Surgical Pathology Report 03/28/2022 Final Value:[id number] Location: 4T; EA12; A The signing pathologist [...] Christina Verified: 04/03/2022 15:08 Pathologist Performed at: -[facility] Dept. of Pathology, [place], [place] SPECIMEN(S) SUBMITTED A - Sigmoid bx, [...] en toto in 1 cassette labeled C1. [facility] Outpatient Visit on 02/19/2022 Component [...] Final Recent endoscopic procedures 06/28/21 EGD ( [facility]): Pre op Dx; Dysphagia Post [...] abnormalities. Recent relevant imaging None ?? Assessment/Plan: .??Rodriguez??is a 71 y.o.??patient with ulcerative colitis. ??On [...] would like to have this done in [facility]. He will keep an eye on [...] - CT scan to be arranged at [facility] in [facility] for left lower quadrant abd pain. [...] spent 25 min today counseling the patient [id number] on the issues outlined above and 10 minutes reviewing the chart, preparing for this visit, documenting, and implementing the plan. Davina Barlow MD Keg Inspectoroiler helper Co-Director, [facility] Section of Gastroenterology [place] [address] documented in this encounter Plan of Treatment Upcoming Encounters Date Type Department Care Team (Late st Contact Info) Description 08/15/2024 9:00 AM EDT Office Visit Gastroenterology at [place] [phone] Dion Barlow MD [facility] [place] [address] 09/01/2024 9:40 AM EDT Office Visit Cardiology at [address] [address] Franky Shaver MD [facility] [place] [address] 09/01/2024 11:20 AM EDT Office Visit Dermatology at [facility] [address] [place] [address] Gómez Mercer MD [facility] DR EDDIE SANCHE[place] [address] 09/21/2024 2:45 PM EDT Office Visit [place] [address] Trung Hoyos MD [facility] DR [place] [address] documented as of this encounter Procedures Procedure [...] who have questions please contact the health associate director career services that requested your imaging first. ? Narrative [...] 8:51 AM EDT) Neutrophil % 68.0 % [facility] Neutrophil Absolute 4.59 1.70 - 6.10 x10(3)/[facility] Lymph % 20.1 % [facility] Lymphocytes Abs 1.4 0.9 - 3.2 x10(3)/[facility] Monocyte % 7.1 % [facility] Monocyte Abs 0.5 0.3 - 0.9 x10(3)/[facility] Eos % 3.8 % [facility] Eosinophils Abs 0.3 0.0 - 0.4 x10(3)/[facility] Basophil % 0.7 % [facility] Baso Absolute 0.0 0.0 - 0.1 x10(3)/[facility] Immature Gran % 0.30 % [facility] Comment: Immature granulocytes(IG's)percentage and absolute count will include metamyelocytes, myelocytes, and promyelocytes. Blood smears from CBCs yielding IG's will be scanned manually for concordance. If this scan disagrees with the automated IG or if promyelocytes are noted, a manual differential will be performed. Immature Gran Absolute 0.02 0.00 - 0.04 x10(3)/[facility] Blood 04/22/2022 8:51 AM EDT 04/22/2022 8:57 AM EDT Narrative Resulting Agency Comment Spec In Lab L Karthik Barlow MD HEMATOLOGY ORDERABLE S [facility] [place] [address] * (ABNORMAL) Hemogram (04/22/2022 8:51 AM EDT) White Blood Cell 6.8 4.0 - 9.5 x10(3)/[facility] Red Blood Cell 3.70(L) 4.58 - 5.54 x10(6)/[facility] Hemoglobin 12.4(L) 13.7 - 16.5 g/dL [facility] Hematocrit 37.5(L) 40.5 - 48.5 % [facility] Mean Cell Volume 101.4(H) 82.9 - 93.1 [facility]ATORY Mean Cell Hemoglobin 33.5(H) 27.5 - 32.1 pg [facility] Mean Cell Hemoglobin Concentration 33.1 32.0 - 35.7 g/dL [facility] Platelet 198 145 - 357 x10(3)/[facility]ORAT[facility] RDW Standard Deviation 45.2(H) 36.0 - 45.0 [facility] RDW coefficient of variation 12.2 11.4 - 13.8 % [facility] Mean Platelet Volume 11.0 7.6 - 12.9 [facility] NRBC% auto 0.0 % [facility] NRBC Absolute 0.000 0.000 - 0.000 x10(3)/[facility] Blood 04/22/2022 8:51 AM EDT 04/22/2022 8:57 AM EDT Narrative Resulting Agency Comment Spec In Lab L Karthik Barlow MD HEMATOLOGY ORDERABLE S [facility] [place] [address] * (ABNORMAL) Basic Metabolic Panel (non-fasting) (04/22/2022 8:51 AM EDT) Glucose 206(H) 65 - 199 mg/dL [facility] Comment:Diabetes: >=200 mg/d L plus symptoms Blood Urea Nitrogen 21(H) 10 - 20 mg/dL [facility] Creatinine 1.17 0.80 - 1.50 mg/dL [facility] Sodium 141 135 - 145 mmol/L [facility] Potassium 4.6 3.5 - 5.0 mmol/L [facility] Comment: Please note: ??Patients with WBC >100,000 may have falsely elevated Potassium levels. ??For accurate Potassium quantification in these patients send serum separator tube (gold top) for subsequent determinations. ??Contact the Clinical Chemistry Laboratory if there are any questions. Chloride 104 98 - 107 mmol/L [facility] Carbon Dioxide 26 22 - 31 mmol/L [facility] Anion Gap 11 5 - 15 mmol/L [facility] Calcium 10.1 8.5 - 10.5 mg/dL [facility] Est Glomerular Filtration Rate 61 >=60 mL/min/1. 73 m?? [facility] Comment: This patient? s estimated [...] CHEMISTRY ORDERABLES Performing Organization Address [facility]/ZIP Co de Phone Number [facility] [place] [address] * CRP, acute inflammation (04/22/2022 8:51 AM EDT) C-Reactive Protein 3.3 <=4.9 mg/L [facility] Blood 04/22/2022 8:51 AM EDT 04/22/2022 8:57 AM EDT Narrative Resulting Agency Comment Spec In Lab L Karthik Barlow MD CHEMISTRY ORDERABLES Performing Organization Address [facility] Co de Phone Number [facility] [place] [address] * Sedimentation rate (04/22/2022 8:51 AM EDT) Sedimentation Rate Automated 36 3 - 46 mm/hr [facility] Comment: Effective November 02, [...] ORDERABLE S Performing Organization Address [facility] Co de Phone Number [facility] [place] [address] documented in this encounter Visit Diagnoses Diagnosis Left sided colitis without complications Left sided ulcerative (chronic) colitis Tick bite of abdominal wall, initial encounter Gastroesophageal reflux disease, unspecified whether esophagitis present Left sided colitis without complications Left sided ulcerative (chronic) colitis documented in this encounter Care Teams Field Trainer Relationship Specialty Start Date End Date Deacon Watters APRN [address] [place] [address] PCP - General Family Medicine 02/17/22 documented as of this encounter
--- OUTSIDE RECORDS SUMMARY | 2024-07-11 11:14 | XMS_ITS | Encounter Summary ---
Author Organization [facility] Address [facility] [place] [address] Care Team Providers Care Saw Filer Name Role Phone Duong Deacon Wells APRN Primary Care Provider +1- [phone] Encounter Details Date Type Department Care Team [...] 9:00 AM EDT [place] [address] Dion Barlow MD [facility] [place] [address] 09/01/2024 9:40 AM EDT Office Visit Cardiology at [address] [phone] Franky Shaver MD [facility] [place] [address] 09/01/2024 11:20 AM EDT Office Visit Dermatology at [facility] [address] [place] [address] Gómez Mercer MD [facility] DR EDDIE [place] [address] 09/21/2024 2:45 PM EDT Office Visit [place] [phone] Trung Hoyos MD [facility] [place] [address] documented as of this encounter Visit Diagnoses Not on filedocumented in this encounter Care Teams Saw Filer Relationship Specialty Start Date End Date Deacon Watters, JAZMINE [address] [place] [address] PCP - General Family Medicine 02/17/22 documented as of this encounter
--- OUTSIDE RECORDS SUMMARY | 2024-07-11 11:14 | XMS_ITS | Encounter Summary ---
Author Organization [facility] Address [facility] [place] [address] Care Team Providers Care Pocket Cutter Name Role Phone Deacon Watters APRN Primary Care Provider +1- [phone] Encounter Details Date Type Department Care Team (Latest Contact Info) Description 03/28/2022 2:03 PM EDT - 03/28/2022 5:24 PM EDT Hospital En[place] [address] Mona Turner MD [facility] [place] [address] Discharge Disposition: Home Social History Tobacco Use [...] occurs, please contact your Doctor. Please call [phone] before 8pm Mon-Fri with problems, questions or concerns. If you call after 8pm or on weekends, call the Hospital at [phone] and ask to speak to the Project Manager correctional classification counselor and the derrick operator will contact that person for you. When should you call for help? Call [phone] anytime you think you may need emergency [...] any problems. Where can you learn more? [facility] View your After Visit Summary and more online at [email or web address] If you would like to provide [...] cost to you. Content Version: 12.2 ?? [id number] Trist. Care instructions adapted under license by [facility]. If you have questions about a [...] needed for Wheezing. Use with spacer BASAGLAR TYLER U-100 INSULIN 100 unit/mL (3 [...] EDT Office [place] [phone] Dion Barlow MD [facility] [place] [address] 09/01/2024 9:40 AM EDT Office Visit Cardiology at [address] [phone] Franky Shaver MD [facility] [address] 09/01/2024 11:20 AM EDT Office Visit Dermatology at [address] [address] Gómez Mercer MD [facility] [place] [address] 09/21/2024 2:45 PM EDT Office Visit [place] [phone] Trung Hoyos MD [facility] [place] [address] documented as of this encounter Procedures Procedure Name Priority Date/Time Associated Diagnosis Comments SURGICAL PATHOLOGY REPORT Routine 03/28/2022 4:22 PM EDT SPECIMEN TO PATHOLOGY Routine 03/28/2022 4:22 PM EDT SPECIMEN TO PATHOLOGY Routine 03/28/2022 4:22 PM EDT SPECIMEN TO PATHOLOGY Routine 03/28/2022 4:22 PM EDT Colonoscopy, Biopsy ([id number]) 03/28/2022 3:30 PM EDT Other ulcerative colitis with rectal bleeding COLONOSCOPY Routine 03/28/2022 3:15 PM EDT documented in this encounter Results * Surgical Pathology Report (03/28/2022 4:22 PM EDT) Final Diagnosis [id number] ? Location: 4T; EA12; A The signing [...] Christina Verified: ??04/03/2022 15:08 ??Pathologist Performed at: ??-[facility] Dept. of Pathology, [place], [place] SPECIMEN(S) SUBMITTED A - Sigmoid bx, [...] labeled C1. ??shb 04/03/2022 3:08 PM EDT [facility] GI Biopsy 03/28/2022 4:22 PM EDT 03/28/2022 4:22 PM EDT GI Biopsy 03/28/2022 4:22 PM EDT 03/28/2022 4:22 PM EDT GI Biopsy 03/28/2022 4:22 PM EDT 03/28/2022 4:22 PM EDT Mona Turner MD PATHOLOGY/CYTOLOGY O CEE [facility] [place] [address] * Specimen to Pathology (03/28/2022 4:22 PM EDT) AP Specimen 03/28/2022 4:22 PM EDT 03/28/2022 4:22 PM EDT Narrative [facility] - 03/28/2022 4:22 PM EDT Specimen requisition ordered. ??Separate Pathology report to follow Mona Turner MD PATHOLOGY/CYTOLOGY O CEE [facility] [place] [address] * Specimen to Pathology (03/28/2022 4:22 PM EDT) AP Specimen 03/28/2022 4:22 PM EDT 03/28/2022 4:22 PM EDT Narrative [facility] - 03/28/2022 4:22 PM EDT Specimen requisition ordered. ??Separate Pathology report to follow Mona Turner MD PATHOLOGY/CYTOLOGY O CEE Performing Organization Address [facility] [place] [place] [address] * Specimen to Pathology (03/28/2022 4:22 PM EDT) AP Specimen 03/28/2022 4:22 PM EDT 03/28/2022 4:22 PM EDT Narrative [facility] - 03/28/2022 4:22 PM EDT Specimen requisition ordered. ??Separate Pathology report to follow Mona Turner MD PATHOLOGY/CYTOLOGY Ozzie MIKE Performing Organization Address [facility] [place] [address] * COLONOSCOPY (03/28/2022 3:15 PM EDT) COLONOSCOPY [facility] Endoscopy Procedure Date: 03/28/2022 3:15 PM ? Patient Name: Brian Rodriguez ? Date of : 1950 ? Age: 71 ? Order #: [id number] ? Instrument Name: [id number] ? Procedure: ? Colonoscopy Indications: ? Follow-up of ulcerative colitis Providers: ? Mona Turner MD, April Augustine ? RONY Archibald, Shay Maynard MD: ?Davina Barlow MD, Deacon Dior ? [facility]: ? Midazolam 4 mg IV, Fentanyl 100 [...] ? was evaluated using the BBPS ? ([employer] Bowel Preparation Scale) ? with scores of: [...] Procedure Code(s): ? --- Professional --- ? 70598, Colonoscopy, flexible; with ? removal of tumor(s), polyp(s), or ? other lesion(s) by snare technique ? 97533, 59, Colonoscopy, flexible; ? with biopsy, single or multiple CPT copyright 2020 [employer]. All rights reserved. The codes documented in this report are preliminary and upon information officer review may be revised to meet current compliance requirements. Attending Participation: ? I personally performed the entire procedure. ? Mona Turner MD _ Mona Turner MD 03/28/2022 4:33:58 PM This report has been signed electronically. Number of Addenda: 0 Note Initiated On: 03/28/2022 3:15 PM PROVATION 03/28/2022 3:15 PM EDT Deacon Watters FIBROUS WALLBOARD INSPECTOR GENERAL SURGICAL O RDERABLES Performing Organization Address City/State/[facility] Co de Phone Number PROVATION documented in [...] RN) documented in this encounter Care Teams Pocket Cutter Relationship Specialty Start Date End Date Deacon Watters, FIBROUS WALLBOARD INSPECTOR [address] [place] [address] [address] [place] [address] PCP - General Family Medicine 02/17/22 documented as of this encounter
--- OUTSIDE RECORDS SUMMARY | 2024-07-11 11:14 | XMS_ITS | Encounter Summary ---
Author Organization [facility] [place] [address] Care Team Providers Care Reacher Name Role Phone Deacon Watters Priscilla LUCERO Primary Care Provider [phone]- [phone] Reason for Visit * Reason Onset Date Comments Medication Refill 08/22/2022 Encounter Details Date Type Department Care Team (Late st Contact Info) Description 08/22/2022 [place] [phone] Dion Barlow MD [facility] [place] [address] Social History Tobacco Use Types Packs/Day Years [...] 9:00 AM EDT Office [place] [phone] Dion Barlow MD [facility] [place] [address] 09/01/2024 9:40 AM EDT Office Visit Cardiology at [address] [place] [address] Franky Shaver MD [facility] [place] [address] 09/01/2024 11:20 AM EDT Office Visit Dermatology at [facility] [address] [place] [phone] Gómez Mercer MD [facility] [place] [address] 09/21/2024 2:45 PM EDT Office Visit [place] [address] Trung Hoyos MD [facility] [place] [address] documented as of this encounter Visit Diagnoses Not on filedocumented in this encounter Care Teams Reacher Relationship Specialty Start Date End Date Deacon Watters, GAMEMASTER [address] [place] [address] PCP - General Family Medicine 02/17/22 documented as of this encounter
--- OUTSIDE RECORDS SUMMARY | 2024-07-11 11:14 | XMS_ITS | Encounter Summary ---
Author Organization [facility] Address [facility] [place] [address] Care Team Providers Care Braker Passenger Train Name Role Phone Josue Wilkinson MD Primary Care Provider [phone] Encounter Details Date Type Department Care Team (Late st Contact Info) Description 02/26/2021 4:00 PM EDT - 02/26/2021 5:00 PM EDT Surgery [place] [address] Dion Barlow MD [facility] [place] [address] COLONOSCOPY, POLYPECTOMY, REMOVAL LESION BY SNARE (WRVU [...] encounter Discharge Instructions * Discharge Instructions* Emilia Love RN - 02/26/2021 5:30 PM EDT Colonoscopy [...] to be checked. Thursday-Thursday Same Day Endo [phone]-8p Otherwise contact [phone] and ask to speak to the job printer environmental program manager Follow up care is a le part [...] by mouth daily. 90 tablet 3 11/22/2012 budesonide 2 mg/actuation FoamIndications:Left sided colitis without [...] 9:00 AM EDT Office [place] [phone] Dion Barlow MD [facility] [place] [address] 09/01/2024 9:40 AM EDT Office Visit Cardiology at [address] [place] [address] Franky Shaver MD [facility] [place] [address] 09/01/2024 11:20 AM EDT Office Visit Dermatology at [facility] [address] [place] [address] Gómez Mercer MD [facility] [place] [address] 09/21/2024 2:45 PM EDT Office Visit [facility] [place] [address] Trung Hoyos MD [facility] [place] [address] documented as of this encounter Procedures Procedure Name Priority Date/Time Associated Diagnosis Comments POCT GLUCOSE Routine 02/26/2021 5:51 PM EDT SPECIMEN TO PATHOLOGY Routine 02/26/2021 5:10 PM EDT SPECIMEN TO PATHOLOGY Routine 02/26/2021 5:10 PM EDT SPECIMEN TO PATHOLOGY Routine 02/26/2021 5:10 PM EDT SURGICAL PATHOLOGY REPORT Routine 02/26/2021 4:53 PM EDT Colonoscopy, Remv Lesmary kay, Snare ([id number]) 02/26/2021 4:28 PM EDT a repeat colonoscopy in two years from 02/22/19 COLONOSCOPY Routine 02/26/2021 4:21 PM EDT POCT GLUCOSE Routine 02/26/2021 3:42 PM EDT documented in this encounter Results * POCT Glucose (02/26/2021 5:51 PM EDT) Glucose, POC 160 65 - 199 mg/dL [facility] Comment: Supplemental ranges: <140 mg/dL before meals <180 mg/dL all other times of the day Blood specimen (specimen) 02/26/2021 5:51 PM EDT 02/26/2021 12:00 PM EDT L Karthik Barlow MD POINT OF CARE TEST O CEE Performing Organization Address [facility]/ZIP Co de Phone Number [facility] [place] [address] * Specimen to Pathology (02/26/2021 5:10 PM EDT) AP Specimen 02/26/2021 5:10 PM EDT 02/26/2021 5:10 PM EDT Narrative [facility] - 02/26/2021 5:10 PM EDT Specimen requisition ordered. ??Separate Pathology report to follow L Karthik Barlow MD PATHOLOGY/CYTOLOGY O CEE Performing Organization Address City/[facility]/ZIP Co de Phone Number [facility] [place] [address] * Specimen to Pathology (02/26/2021 5:10 PM EDT) AP Specimen 02/26/2021 5:10 PM EDT 02/26/2021 5:10 PM EDT Narrative [facility] - 02/26/2021 5:10 PM EDT Specimen requisition ordered. ??Separate Pathology report to follow L Karthik Barlow MD PATHOLOGY/CYTOLOGY O CEE Performing Organization Address City/[facility]/ZIP Co de Phone Number [facility] [place] [address] * Specimen to Pathology (02/26/2021 5:10 PM EDT) AP Specimen 02/26/2021 5:10 PM EDT 02/26/2021 5:10 PM EDT Narrative [facility] - 02/26/2021 5:10 PM EDT Specimen requisition ordered. ??Separate Pathology report to follow L Karthik Barlow MD PATHOLOGY/CYTOLOGY O CEE Performing Organization Address [facility] Co de Phone Number [facility] [place] [address] * Surgical Pathology Report (02/26/2021 4:53 PM EDT) Final Diagnosis [id number] ? Location: 4T; EA08; A The signing [...] MD Verified: ??03/04/2021 16:33 ??Pathologist Performed at: ??-[facility] Dept. of Pathology, [place], [place] SPECIMEN(S) SUBMITTED A - right colon [...] labeled C1. ??shb 03/04/2021 4:33 PM EDT [facility] GI Biopsy 02/26/2021 4:53 PM EDT 02/26/2021 4:53 PM EDT GI Biopsy 02/26/2021 4:53 PM EDT 02/26/2021 4:53 PM EDT GI Biopsy 02/26/2021 4:53 PM EDT 02/26/2021 4:53 PM EDT L Karthik Barlow MD PATHOLOGY/CYTOLOGY O RDERABLES [facility] [place] [address] * COLONOSCOPY (02/26/2021 4:21 PM EDT) COLONOSCOPY [facility] Endoscopy ___ Procedure Date: 02/26/2021 4:21 PM ? Patient Name: Brian Rodriguez ? Date of : 1950 ? Age: 70 ? Order #: [id number] ? Instrument Name: [id number] ? ___ Procedure: ? Colonoscopy Indications: ? High risk colon cancer surveillance: ? Ulcerative colitis Patient Profile: ? This is a 70 year old male. This ? patient has left-sided ulcerative ? colitis, is taking sulfasalazine and ? topical steroid foam, and he is ? experiencing mild symptoms. Providers: ? Davina Barlow MD, Marcelo Maloney ? Robi Lawson MD: ?Josue Wilkinson Medicines: [...] preparation was evaluated using ? the BBPS ([place] Bowel Preparation ? Scale) with scores of: [...] Glucose, POC 128 65 - 199 mg/dL [facility] Comment: Supplemental ranges: <140 mg/dL before meals <180 mg/dL all other times of the day Blood specimen (specimen) 02/26/2021 3:42 PM EDT 02/26/2021 12:00 PM EDT Dion Barlow MD POINT OF CARE TEST O RDERABLES Performing Organization Address City/[facility]/ZIP Co de Phone Number [facility] [place] [address] documented in this encounter Visit Diagnoses Not [...] on Thu02/26/21 at 1631, Until Thu02/26/21 at 202, Intra-Operative (Intra-Procedure), Routine 1631 (Given - Provid [...] RN) documented in this encounter Care Teams Braker Passenger Train Relationship Specialty Start Date End Date Josue Wilkinson MD PCP - General General Internal Medicine 02/14/2107/26 documented as of this encounter
--- OUTSIDE RECORDS SUMMARY | 2024-07-11 11:14 | XMS_ITS | Encounter Summary ---
Author Organization [facility] [place] [address] Care Team Providers Care Show Dog Trainer Name Role Phone Deacon Watters APRN Primary Care Provider [phone] Reason for Referral * Diagnostic Test (Routine) - Closed Specialty Diagnoses / Procedures Referred By Contac t Referred To Contact Radiology Diagnoses Left sided colitis without complications Procedures CT Abdomen & Pelvis w Contrast Dion Barlow MD [facility] [place] [address] Referral ID Status Reason Start Date Expiration Date V isits Requested Visits Authorized [id number] Closed Specialty Service Requested 04/22/2022 10/22/2023 1 1 Reason for Visit * Diagnostic Test (Routine) - Closed Specialty Diagnoses / Procedures Referred By Contac t Referred To Contact Radiology Diagnoses Left sided colitis without complications Procedures CT Abdomen & Pelvis w Contrast Dion Barlow MD [facility] [place] [address] Referral ID Status Reason Start Date Expiration Date V isits Requested Visits Authorized [id number] Closed Specialty Service Requested 04/22/2022 10/22/2023 1 1 Encounter Details Date Type Department Care Team (Latest Contact Info) Description 09/29/2022 1:05 PM EST - 09/29/2022 11:59 PM EST Hospital [place] [address] Dion Barlow MD [facility] [place] [address] Left sided colitis without complications Discharge Disposition: [...] needed for Wheezing. Use with spacer BASAGLAR KWKELLYPEN U-100 INSULIN 100 unit/mL (3 mL) pen [...] by mouth daily. 90 tablet 3 11/22/2012 sulfaSALAzine (Azulfidine) 500 mg Tablet Take 3 tablets by mouth 2 times daily. 540 tablet 3 08/22/2022 09/21/2023 empagliflozin (Jardiance) 10 mg Tablet Take 10 mg by mouth daily. 01/07/2024 atorvastatin (Lipitor) 20 mg Tablet Take 20 [...] per week) 133.6 g 5 08/26/2021 12/07/2023 propranolol (INDERAL LA) 80 mg Capsule,Sustained Action [...] 9:00 AM EDT Office [place] [address] Dion Barlow MD [facility] [place] [address] 09/01/2024 9:40 AM EDT Office Visit Cardiology at [address] [phone] Franky Shaver MD [facility] [place] [address] 09/01/2024 11:20 AM EDT Office Visit Dermatology at [facility] [address] [place] [address] Gómez Mercer MD [facility] DR EDD[place] [address] 09/21/2024 2:45 PM EDT Office Visit Pain and Spine Center at [facility] [place] [address] Trung Hoyos MD [facility] [place] [address] documented as of this encounter Procedures Procedure [...] who have questions please contact the health chronic care nurse that requested your imaging first. ? Narrative [...] mLs documented in this encounter Care Teams Show Dog Trainer Relationship Specialty Start Date End Date Deacon Watters, JAZMINE [address] [place] [address] PCP - General Family Medicine 02/17/22 documented as of this encounter
--- OUTSIDE RECORDS SUMMARY | 2024-07-11 11:14 | XMS_ITS | Encounter Summary ---
[place] [address] Care Team Providers Care Rn Enterostomal Name Role Phone Deacon Watters APRN Primary Care Provider [phone] Encounter Details Date Type Department Care Team (Latest Contact Info) Description 02/19/2022 10:52 AM EDT - 02/19/2022 11:59 PM EDT Hospital [place] [address] Other ulcerative colitis with rectal bleeding Discharge [...] 9:00 AM EDT Office Visit [place] [address] Dion Barlow MD [facility] [place] [address] 09/01/2024 9:40 AM EDT Office Visit Cardiology at [address] [place] [address] Franky Shaver MD [facility] [place] [address] 09/01/2024 11:20 AM EDT Office Visit Dermatology at [facility] [address] [place] [address] Gómez Mercer MD [facility] DR EDD[place] [address] 09/21/2024 2:45 PM EDT Office Visit [facility] [place] [phone] Trung Hoyos MD [facility] [place] [address] documented as of this encounter Procedures Procedure Name Priority Date/Time Associated Diagnosis Comments HC FECAL CALPROTECTIN Routine 02/19/2022 8:00 AM EDT Other ulcerative colitis with rectal bleeding documented in this encounter Results * Calprotectin, Stool (02/19/2022 8:00 AM EDT) Calprotectin, Stool 55 <=79 mcg/g [facility] Comment: Calprotectin Concentration ? Interpretation ? < 80 mcg/g ?Normal ? 80 ? 160 mcg/g ?Borderline ? >160 mcg/g ?Elevated Stool 02/19/2022 8:00 AM EDT 02/19/2022 11:25 AM EDT Narrative Resulting Agency Comment Spec In Lab Monalisa C Dragnev WATER MAIN PIPE LAYER BODY FLUIDS AND S TOOLS ORDERABLES Performing Organization Address [facility] Co de Phone Number [facility] [place] [address] documented in this encounter Visit Diagnoses Diagnosis Other ulcerative colitis with rectal bleeding documented in this encounter Additional Health Concerns Infection Onset Date Last Indicated Resolved Time Rule Out C. difficile 02/19/2022 02/19/20222021 11:33 AM EDT documented as of this encounter Care Teams Rn Enterostomal Relationship Specialty Start Date End Date Deacon Watters APRN [address] [place] [address] PCP - General Family Medicine 02/17/22 documented as of this encounter
--- OUTSIDE RECORDS SUMMARY | 2024-07-11 11:14 | XMS_ITS | Encounter Summary ---
Author Organization [facility] Address [facility] [place] [address] Care Team Providers Care Timber Watchman Name Role Phone Josue Wilkinson MD Primary Care Provider [phone] Encounter Details Date Type Department Care Team (Late st Contact Info) Description 04/30/2021 Telephone [place] [phone] Marcelle Weinberg APRN [facility] [place] [address] Social History Tobacco Use Types Packs/Day Years [...] 9:00 AM EDT Office [place] [phone] Dion Barlow MD [facility] [place] [address] 09/01/2024 9:40 AM EDT Office Visit Cardiology at [address] [address] Franky Shaver MD [facility] [place] [address] 09/01/2024 11:20 AM EDT Office Visit Dermatology at [address] [address] Gómez Mercer MD [facility] DR EDDIE SANCHEZ-DERMATOLOGY [place], [place] [address] 09/21/2024 2:45 PM EDT Office Visit [place] [address] Trung Hoyos MD [facility] [place] [address] documented as of this encounter Results * Vitamin B12 (05/31/2021 1:49 PM EDT) Vitamin B12 389 232 - 1,245 pg/mL [facility] Blood 05/31/2021 1:49 PM EDT 05/31/2021 1:52 PM EDT Narrative Resulting Agency Comment Spec In Lab Marcelle Weinberg CEMENT BREAKER CHEMISTRY ORDERAB LES [facility] [place] [address] * Iron and TIBC (05/31/2021 1:49 PM EDT) Iron 86 45 - 160 mcg/dL [facility] TIBC 286 250 - 450 mcg/dL [facility] Iron Saturation 30 20 - 50 % [facility] Blood 05/31/2021 1:49 PM EDT 05/31/2021 1:52 PM EDT Narrative Resulting Agency Comment Spec In Lab Marcelle Dunnjeovannyjania CEMENT BREAKER CHEMISTRY ORDERAB LES [facility] [place] [address] * Ferritin (05/31/2021 1:49 PM EDT) Ferritin 94 30 - 400 ng/mL [facility] Comment: Pediatric reference ranges not verified at [facility], interpret with caution. Reference ranges for females greater than 50 years of age approach values for men, i.e., 30-400 ng/mL. Blood 05/31/2021 1:49 PM EDT 05/31/2021 1:52 PM EDT Narrative Resulting Agency Comment Spec In Lab Marcelle Dunnjeovannyv CEMENT BREAKER CHEMISTRY ORDERAB LES [facility] [place] [address] documented in this encounter Visit Diagnoses Diagnosis Left sided colitis without complications Left sided ulcerative (chronic) colitis documented in this encounter Care Teams Timber Watchman Relationship Specialty Start Date End Date Josue Wilkinson MD PCP - General General Internal Medicine 02/14/2107/26 documented as of this encounter
--- OUTSIDE RECORDS SUMMARY | 2024-07-11 11:15 | XMS_ITS | Encounter Summary ---
Author Organization Formerly [facility] [place] [address] Care Team Providers Care Supervisor Payroll Name Role Phone Maximilian Fall MD Primary Care Provider [phone] Encounter Details Date Type Department Care Team (Late st Contact Info) Description 03/07/2019 Ancillary Procedure [place] [phone] Dion Barlow MD [facility] [place] [address] Social History Tobacco Use Types Packs/Day Years [...] 9:00 AM EDT Office [place] [address] Dion Barlow MD [facility] [address] 09/01/2024 9:40 AM EDT Office Visit Cardiology at [address] [place] [address] Franky Shaver MD [facility] [place] [address] 09/01/2024 11:20 AM EDT Office Visit Dermatology at [facility] [address] [place] [address] Gómez Mercer MD [facility] DR EDDIE [place] [address] 09/21/2024 2:45 PM EDT Office Visit [place] [address] Trung Hoyos MD [facility] [place] [address] documented as of this encounter Procedures Procedure Name Priority Date/Time Associated Diagnosis Comments FILM LIBRARY STORAGE ONLY CT ABDOMEN AND PELVIS Routine 03/07/2019 12:00 AM EDT documented in this encounter Results * Film Library- Storage Only CT Abdomen & Pelvis (03/07/2019 12:00 AM EDT) Narrative [facility] - 04/27/2019 3:15 AM EDT This exam is auto-finalizing. It's purpose is for storage only. L Karthik Barlow MD IMG FILM LIBRARY ORD ERABLES [place], [place] documented in this encounter Visit Diagnoses Not on filedocumented in this encounter Care Teams Supervisor Payroll Relationship Specialty Start Date End Date Maximilian Fall MD [address] [place] [address] PCP - General 10/01/11 02/13/21 documented as of this encounter
--- OUTSIDE RECORDS SUMMARY | 2024-07-11 11:15 | XMS_ITS | Encounter Summary ---
Author Organization [facility]ly [facility] [place] [address] Care Team Providers Care Nitro Man Name Role Phone Maximilian Fall MD Primary Care Provider [phone] Reason for Visit * Reason Onset Date Comments Medication Refill 06/27/2019 Encounter Details Date Type Department Care Team (Late st Contact Info) Description 06/27/2019 Ref[place] [address] Sophia Coleman, CCMA Social History Tobacco Use [...] 9:00 AM EDT Office [place] [phone] Dion Barlow MD [facility] [place] [address] 09/01/2024 9:40 AM EDT Office Visit Cardiology at [address] [phone] Franky Shaver MD [facility] [place] [address] 09/01/2024 11:20 AM EDT Office Visit Dermatology at [facility] [address] [place] [address] Gómez Mercer MD [facility] DR EDDIE [place] [address] 09/21/2024 2:45 PM EDT Office Visit Pain and Spine Center at [facility] [place] [phone] Trung Hoyos MD [facility] [place] [address] documented as of this encounter Visit Diagnoses Not on filedocumented in this encounter Care Teams Nitro Man Relationship Specialty Start Date End Date Maximilian Fall MD [address] [place] [address] PCP - General 10/01/11 02/13/21 documented as of this encounter
--- OUTSIDE RECORDS SUMMARY | 2024-07-11 11:15 | XMS_ITS | Encounter Summary ---
Author Organization [facility] Address [facility] [place] [address] Care Team Providers Care Charge Manager Name Role Phone Maximilian Fall MD Primary Care Provider [phone] Encounter Details Date Type Department Care Team (Latest Contact Info) Description 09/12/2019 3:40 PM EDT Office [place] [phone] Dion Barlow MD [facility] [place] [address] Left sided colitis without complications Social History [...] IBD History: ?? Colonoscopy 04/08/10 (Dr. Gomes [facility]) - inflammation only within the rectum and sigmoid; extent of the exam was to the hepatic flexure; biopsies proximal to the sigmoid nl ?? Repeat exam 11/27/11 ([facility]): mildly active colitis in the [...] Final ??? UPPER GI ENDOSCOPY 04/28/2019 Final Value:[facility] Endoscopy Procedure Date: 04/28/2019 4:39 PM Patient Name: Brian Rodriguez Date of : 1950 Age: 68 Order #: [id number] Instrument Name: [id number] Procedure: Upper GI endoscopy Indications: Abnormal CT of the GI tract (duodenal thickening) Providers: Iza Coates MD, Nohemi Ball RN, Jonathan Ko, Project Manager Senior Referring MD: Maximilian Fall MD Requesting Provider: [...] PM ??? Surgical Pathology Report 04/28/2019 Final Value:[id number] Location: 4T; [facility]; A The signing pathologist has (i) examined the relevant preparation(s) for the specimen(s) and (ii) rendered or confirmed the diagnosis(es). . Surgical Pathology DIAGNOSIS A - Random duodenum, biopsy: Duodenal mucosa within normal limits, including preserved villous architecture. B - Fundic gland, polypectomy: Gastric fundic gland polyp. Electronically signed by: Joana Soler MD Verified: 05/02/2019 Pathologist Performed at: -[facility] Dept. of Pathology, [place], [place] CLINICAL INFORMATION Specimen Submitted: A - [...] patient. Anthony Hamlin [place] [address] ATTENDING ADDENDUM I interviewed and examined Brian [...] sulfasalazine. 15 min of this 20 min coti-nf-qbnm visit was spent counseling the patient in the issues outlined above. Davina Barlow MD Drum Loader And Unloaderautomobile mechanic helper Co-Director, [facility] Section of Gastroenterology [place] [address] documented in this encounter Plan of Treatment Upcoming Encounters Date Type Department Care Team (Late st Contact Info) Description 08/15/2024 9:00 AM EDT Office Visit Gastroenterology at [place] [phone] Dion Barlow MD [facility] [place] [address] 09/01/2024 9:40 AM EDT Office Visit Cardiology at [address] [place] [address] Franky Shaver MD [facility] [place] [address] 09/01/2024 11:20 AM EDT Office Visit Dermatology at [place] [address] [place] [address] Gómez Mercer MD [facility] [address] 09/21/2024 2:45 PM EDT Office Visit [place] [phone] Trung Hoyos MD [facility] [place] [address] documented as of this encounter Visit Diagnoses Diagnosis Left sided colitis without complications Left sided ulcerative (chronic) colitis documented in this encounter Care Teams Charge Manager Relationship Specialty Start Date End Date Maximilian Fall MD [address] [facility] [place] [address] PCP - General 10/01/11 02/13/21 documented as of this encounter
--- OUTSIDE RECORDS SUMMARY | 2024-07-11 11:15 | XMS_ITS | Encounter Summary ---
Author Organization [facility] Address [facility] [place] [address] Care Team Providers Care Teacher Vocal Name Role Phone Maximilian Fall MD Primary Care Provider [phone] Encounter Details Date Type Department Care Team (Latest Contact Info) Description 05/09/2019 10:20 AM EDT Office [place] [address] Dion Barlow MD [facility] [place] [address] Left sided colitis without complications Social History [...] sigmoid nl ?? Repeat exam 11/27/11 ([facility]): mildly active colitis in the sigmoid colon [...] needed 20 min of this 25 min vlxj-xp-icyy visit was spent counseling the patient in the issues outlined above. Davina Barlow MD Derrick Barge Operatormillinery designer Co-Director, [facility] Section of Gastroenterology [place] [address] documented in this encounter Plan of Treatment Upcoming Encounters Date Type Department Care Team (Late st Contact Info) Description 08/15/2024 9:00 AM EDT Office [place] [address] Dion Barlow MD [facility] [place] [address] 09/01/2024 9:40 AM EDT Office Visit Cardiology at [address] [place] [address] Franky Shaver MD [facility] [place] [address] 09/01/2024 11:20 AM EDT Office Visit Dermatology at [facility] [address] [place] [address] Gómez Mercer MD [facility] [place] [address] 09/21/2024 2:45 PM EDT Office Visit Pain and Spine Center at [facility] [place] [address] Trung Hoyos MD [facility] [place] [address] documented as of this encounter Visit Diagnoses Diagnosis Left sided colitis without complications Left sided ulcerative (chronic) colitis documented in this encounter Care Teams Teacher Vocal Relationship Specialty Start Date End Date Maximilian Fall MD [address] [facility] 1 [place] [address] PCP - General 10/01/11 02/13/21 documented as of this encounter
--- OUTSIDE RECORDS SUMMARY | 2024-07-11 11:15 | XMS_ITS | Encounter Summary ---
Author Organization [facility] Address [facility] [place] [address] Care Team Providers Care Cargo Handler Name Role Phone Maximilian Fall MD Primary Care Provider [phone] Reason for Visit * Reason Comments Follow-up Encounter Details Date Type Department Care Team (Late st Contact Info) Description 10/29/2017 10:30 AM EST Office [place] [address] Dion Barlow MD [facility] [place] [address] Left sided ulcerative colitis with complication Social [...] Overview Note: ? Colonoscopy 04/08/10 (Dr. Gomes [facility]) - inflammation only within the rectum and sigmoid; extent of the exam was to the hepatic flexure; biopsies proximal to the sigmoid nl ?? Repeat exam 11/27/11 ([facility]): [...] months. 15 min of this 25 min hbpm-za-qwxl visit was spent counseling the patient in the issues outlined above. Davina Barlow MD Outside Installer Apprenticewatch and clock maker and repairer Section of Gastroenterology [place] [address] CC: Maximilian Fall MD [address] [place] [id number] documented in this encounter Plan of Treatment Upcoming Encounters Date Type Department Care Team (Late st Contact Info) Description 08/15/2024 9:00 AM EDT Office [place] [address] Dion Barlow MD [facility] [place] [address] 09/01/2024 9:40 AM EDT Office Visit Cardiology at [address] [place] [address] Franky Shaver MD [facility] [place] [address] 09/01/2024 11:20 AM EDT Office Visit Dermatology at [facility] [address] [place] [address] Gómez Mercer MD [facility] DR [place] [address] 09/21/2024 2:45 PM EDT Office Visit Pain and Spine Center at [facility] [place] [address] Trung Hoyos MD [facility] [address] documented as of this encounter Visit Diagnoses Diagnosis Left sided ulcerative colitis with complication documented in this encounter Care Teams Cargo Handler Relationship Specialty Start Date End Date Maximilian Fall MD [address] [place] [address] PCP - General 10/01/11 02/13/21 documented as of this encounter
--- OUTSIDE RECORDS SUMMARY | 2024-07-11 11:15 | XMS_ITS | Encounter Summary ---
Author Organization [facility] [place] [address] Care Team Providers Care Cathodic Protection Technician Name Role Phone Maximilian Fall MD Primary Care Provider [phone] Encounter Details Date Type Department Care Team (Late st Contact Info) Description 03/26/2018 Telephone [place] [address] Bethany Trivedi, RN Social History Tobacco Use [...] difficulty getting Cortifoam because it is on internal controls specialist back order. Has been diarrhea and bleeding [...] 9:00 AM EDT Office [place] [address] Dion Barlow MD [facility] [place] [address] 09/01/2024 9:40 AM EDT Office Visit Cardiology at [address] [phone] Franky Shaver MD [facility] [place] [address] 09/01/2024 11:20 AM EDT Office Visit Dermatology at [address] [place] [address] Gómez Mercer MD [facility] [place] [address] 09/21/2024 2:45 PM EDT Office Visit [place] [address] Trung Hoyos MD [facility] [place] [address] documented as of this encounter Visit Diagnoses Not on filedocumented in this encounter Care Teams Cathodic Protection Technician Relationship Specialty Start Date End Date Maximilian Fall MD [address] [facility] 1 [place] [address] PCP - General 10/01/11 02/13/21 documented as of this encounter
--- OUTSIDE RECORDS SUMMARY | 2024-07-11 11:15 | XMS_ITS | Encounter Summary ---
Author Organization [facility] [place] [address] Care Team Providers Care Associate Professor Of Media Arts Name Role Phone Maximilian Fall MD Primary Care Provider [phone] Reason for Visit * Reason Onset Date Comments Reminder Appointment 03/20/2020 Encounter Details Date Type Department Care Team (Late st Contact Info) Description 03/20/2020 Telephone [place] [address] Kinjal Durham CMA GASTROENTEROLOGY DEPT Reminder Appointment [...] 9:00 AM EDT Office [place] [address] Dion Barlow MD [facility] [place] [address] 09/01/2024 9:40 AM EDT Office Visit Cardiology at [address] [place] [address] Franky Shaver MD [facility] [place] [address] 09/01/2024 11:20 AM EDT Office Visit Dermatology at [facility] [address] [place] [address] Gómez Mercer MD [facility] [place] [address] 09/21/2024 2:45 PM EDT Office Visit [place] [address] Trung Hoyos MD [facility] [place] [address] documented as of this encounter Visit Diagnoses Not on filedocumented in this encounter Care Teams Associate Professor Of Media Arts Relationship Specialty Start Date End Date Maximilian Fall MD [address] [facility] 1 [place] [address] PCP - General 10/01/11 02/13/21 documented as of this encounter
--- OUTSIDE RECORDS SUMMARY | 2024-07-11 11:15 | XMS_ITS | Encounter Summary ---
Author Organization [facility] Address [facility] [place] [address] Care Team Providers Care Tile Applicator Name Role Phone Maximilian Fall MD Primary Care Provider [phone] Encounter Details Date Type Department Care Team (Latest Contact Info) Description 03/20/2020 10:00 AM EDT TH Visit (TeleHealth) [place] [address] Dion Osullivan MD [facility] DR [place] [address] Other ulcerative colitis with rectal bleeding Social [...] Overview Note: ?? Colonoscopy 04/08/10 (Dr. Gomes [facility]) - inflammation only within the rectum and sigmoid; extent of the exam was to the hepatic flexure; biopsies proximal to the sigmoid nl ?? Repeat exam 11/27/11 ([facility]): mildly active colitis in the sigmoid colon [...] today for a phone visit to f/u MEGAN. He was last seen in clinic 08/2019. He is taking sulfasalazine 2g BID and Uceris foam. Had weaned off of foam and then noticed blood again about 4 weeks ago. Resumed nightly foam with resolution of bleeding. However, continues with 4-5 loose stools per day. This has been in conjunction with 60-day Bactrim course apparently recommended by his urology team and [facility]. He reports for a UTI (perhaps chronic [...] past surgical history that includes Colonoscopy, Diagnostic (59579) (11/27/2011); Sigmoidoscopy, Diagnostic (67142) (03/16/2012); Upper Gi Endoscopy, Exam (38699) (10/01/2012); Colonoscopy, Diagnostic (01468) (07/13/2014); Colonoscopy, Biopsy (31201) (N/A, 02/12/2017); Colonoscopy, Biopsy (48997) (N/A, 02/22/2019); Colonoscopy, Remv Lesn, Snare (17325) (N/A, 02/22/2019); and Upper GI Endoscopy, Diagnostic (88662) (N/A, 04/28/2019). Family History: family history is [...] Would check C. Diff and lactoferrin at [facility]. Also, will call if diarrhea does not [...] with patient on above. Dion OSULLIVAN MD [facility] [place] [address] documented in this encounter Plan of Treatment Upcoming Encounters Date Type Department Care Team (Late st Contact Info) Description 08/15/2024 9:00 AM EDT Office [place] [address] Dion Osullivan MD [facility] [place] [address] 09/01/2024 9:40 AM EDT Office Visit Cardiology at [address] [place] [address] Franky Shaver MD [facility] [place] [address] 09/01/2024 11:20 AM EDT Office Visit Dermatology at [facility] [address] [place] [address] Gómez Mercer MD [facility] [address] 09/21/2024 2:45 PM EDT Office Visit [place] [address] Trung Hoyos MD [facility] [place] [address] documented as of this encounter Visit Diagnoses Diagnosis Other ulcerative colitis with rectal bleeding documented in this encounter Care Teams Tile Applicator Relationship Specialty Start Date End Date Maximilian Fall MD [address] [place] [address] PCP - General 10/01/11 02/13/21 documented as of this encounter
--- OUTSIDE RECORDS SUMMARY | 2024-07-11 11:15 | XMS_ITS | Encounter Summary ---
Author Organization Formerly [facility] Address [facility] [place] [address] Care Team Providers Care Spray Painting Machine Operator Name Role Phone Maximilian Fall MD Primary Care Provider [phone] Encounter Details Date Type Department Care Team (Latest Contact Info) Description 04/25/2019 10:00 AM EDT Office [place] [address] Marcelle Weinberg APRN [facility] [place] [address] Left sided colitis without complications Social History [...] and have it re read here at [facility] # Colonoscopy again spring 2020. [...] ? Overview Note:? Colonoscopy 04/08/10 (Dr. Gomes [facility]) - inflammation only within the rectum and sigmoid; extent of the exam was to the hepatic flexure; biopsies proximal to the sigmoid nl ?? Repeat exam 11/27/11 ([facility]): mildly active colitis in the [...] 3.66) performed by Dion Osullivan MD at [facility] ??? PRO COLONOSCOPY, DIAGNOSTIC ?? 11/27/2011 ?? COLONOSCOPY, DIAGNOSTIC performed by Dion OSULLIVAN at [facility] ??? PRO COLONOSCOPY, DIAGNOSTIC ?? 07/13/2014 ?? COLONOSCOPY, DIAGNOSTIC performed by Dion Osullivan MD at [facility] ??? PRO SIGMOIDOSCOPY, DIAGNOSTIC ?? 03/16/2012 ?? FLEXIBLE SIGMOIDOSCOPY performed by YUDI MALLOY at [facility] ??? UPPER GI ENDOSCOPY, EXAM ?? 10/01/2012 ?? UPPER GI ENDOSCOPY performed by Dion OSULLIVAN at [facility] ? Social History ?? Socioeconomic [...] mg/L 5.0 (H) Surgical Pathology Report Unknown [id number] ... COLONOSCOPY Unknown [facility]... COLONOSCOPY COLONOSCOPY Collected: 02/22/19 2087 Resulting lab: [facility] Value: [facility] Endoscopy Procedure Date: 02/22/2019 3:57 PM ? Patient Name: Brian Rodriguez ? Date of : 1950 ? Age: 68 ? Order #: [id number] ? Instrument Name: [id number] ? Procedure: ? Colonoscopy Indications: ? High risk colon cancer surveillance: ?Ulcerative colitis Patient Profile: ? This is a 68 year old male. This ?patient has left-sided ulcerative ?colitis, is taking sulfasalazine and ?cortenemas and is experiencing mild ?symptoms. Providers: ? L. Karthik Osullivan MD, Alannah Singletary, ?RN, Anita Maynard MD: ?Maximilian Fall MD Medicines: ? Midazolam [...] ?bowel preparation was evaluated using ?the BBPS ([facility] Bowel Preparation ?Scale) with scores of: Right [...] HARVEY, Ana Verified: ??02/26/2019 ?Pathologist Performed at: ??-[facility] Dept. of Pathology, [place], [place] 03/07/19 CT abd/pelvis ( [facility]): Non [...] He had a CT abd/pelvis done at [facility] (03/07/19)when he presented to his PCP [...] and have it re read here at [facility] # Colonoscopy again spring 2020. [...] 9:00 AM EDT Office [place] [address] Dion Osullivan MD [facility] [place] [address] 09/01/2024 9:40 AM EDT Office Visit Cardiology at [address] [place] [address] Franky Shaver MD [facility] [place] [address] 09/01/2024 11:20 AM EDT Office Visit Dermatology at [facility] [address] [place] [address] Gómez Mercer MD [facility] DR EDDIE [place] [address] 09/21/2024 2:45 PM EDT Office Visit Pain and Spine Center at [facility] [place] [address] Trung Hoyos MD [facility] [place] [address] Scheduled Orders Name Type Priority Associated Diagnoses [...] 12:00 PM EDT) Neutrophil % 66.3 % [facility] Neutrophil Absolute 4.90 1.70 - 6.10 x10(3)/[facility] LABORATORY Lymph % 24.0 % [facility] Lymphocytes Abs 1.8 0.9 - 3.2 x10(3)/[facility] LABORATORY Monocyte % 6.8 % [facility] Monocyte Abs 0.5 0.3 - 0.9 x10(3)/[facility] LABORATORY Eos % 2.0 % [facility] Eosinophils Abs 0.2 0.0 - 0.4 x10(3)/[facility] Basophil % 0.5 % [facility] Baso Absolute 0.0 0.0 - 0.1 x10(3)/[facility] Immature Gran % 0.40 % [facility] Comment: Immature granulocytes(IG's)percentage and absolute count will include metamyelocytes, myelocytes, and promyelocytes. Blood smears from CBCs yielding IG's will be scanned manually for concordance. If this scan disagrees with the automated IG or if promyelocytes are noted, a manual differential will be performed. Immature Gran Absolute 0.03 0.00 - 0.04 x10(3)/[facility] LABORATORY Blood specimen (specimen) 04/25/2019 12:00 PM EDT 04/25/2019 12:03 PM EDT Narrative Resulting Agency Comment Spec In Lab Marcelle Weinberg CREDIT OFFICER HEMATOLOGY ORDERA BLES [facility] [place] [address] * (ABNORMAL) Hemogram (04/25/2019 12:00 PM EDT) White Blood Cell 7.4 4.0 - 9.5 x10(3)/mc L [facility] Red Blood Cell 4.22(L) 4.58 - 5.54 x10(6)/mc L [facility] Hemoglobin 13.7 13.7 - 16.5 gm/dL [facility] Hematocrit 41.9 40.5 - 48.5 % [facility] Mean Cell Volume 99.3(H) 82.9 - 93.1 fL [facility] Mean Cell Hemoglobin 32.5(H) 27.5 - 32.1 pg [facility] Mean Cell Hemoglobin Concentration 32.7 32.0 - 35.7 gm/dL [facility] Platelet 239 145 - 357 x10(3)/mc L [facility] RDW Standard Deviation 45.9(H) 36.0 - 45.0 fL [facility] RDW coefficient of variation 12.6 11.4 - 13.8 % [facility] Mean Platelet Volume 11.0 7.6 - 12.9 fL [facility] NRBC% auto 0.0 % [facility] NRBC Absolute 0.000 0.000 - 0.000 x10(3)/mc L [facility] Blood specimen (specimen) 04/25/2019 12:00 PM EDT 04/25/2019 12:03 PM EDT Narrative Resulting Agency Comment Spec In Lab Marcelle Weinberg CREDIT OFFICER HEMATOLOGY ORDERA BLES Performing Organization Address [facility] Co de Phone Number [facility] [place] [address] * CRP, acute inflammation (04/25/2019 12:00 PM EDT) C-Reactive Protein 2.5 <=4.9 mg/L [facility] Blood specimen (specimen) 04/25/2019 12:00 PM EDT 04/25/2019 12:03 PM EDT Narrative Resulting Agency Comment Spec In Lab Marcelle Weinberg CREDIT OFFICER CHEMISTRY ORDERAB LES Performing Organization Address City/[facility]/ZIP Co de Phone Number [facility] [place] [address] * (ABNORMAL) Sedimentation rate (04/25/2019 12:00 PM EDT) Sedimentation Rate Automated 28(H) 0 - 15 mm/hr [facility] Blood specimen (specimen) 04/25/2019 12:00 PM EDT 04/25/2019 12:03 PM EDT Narrative Resulting Agency Comment Spec In Lab Marcelle Weinberg CREDIT OFFICER HEMATOLOGY ORDERA BLES [facility] [place] [address] * (ABNORMAL) Comprehensive metabolic panel (non-fasting) (04/25/2019 12:00 PM EDT) Glucose 84 65 - 199 mg/dL [facility] Comment:Diabetes: >=200 mg/d L plus symptoms Blood Urea Nitrogen 15 10 - 20 mg/dL [facility] Creatinine 1.14 0.80 - 1.50 mg/dL [facility] Sodium 140 135 - 145 mmol/L [facility] Potassium 4.8 3.5 - 5.0 mmol/L [facility] Comment: Please note: ??Patients with WBC >100,000 may have falsely elevated Potassium levels. ??For accurate Potassium quantification in these patients send serum separator tube (gold top) for subsequent determinations. ??Contact the Clinical Chemistry Laboratory if there are any questions. Chloride 104 98 - 107 mmol/L [facility] Carbon Dioxide 25 22 - 31 mmol/L [facility] Anion Gap 11 5 - 15 mmol/L [facility] Calcium 9.8 8.5 - 10.5 mg/dL [facility] Protein, Total 8.5(H) 6.1 - 8.0 gm/dL [facility] Albumin 4.4 3.2 - 5.2 gm/dL [facility] Aspartate Aminotransferase 12 0 - 39 unit/L [facility] Alanine Aminotransferase 14 0 - 55 unit/L [facility] Alkaline Phosphatase 70 40 - 120 unit/L [facility] Bilirubin, Total 0.4 0.2 - 1.3 mg/dL [facility] Est Glomerular Filtration Rate 65 >=60 mL/min/1. 73 m?? [facility] Comment: The eGFR was calculated using the CKD-EPI equation. As with all creatinine based estimates of kidney function, eGFR values calculated with the CKD-EPI equation are not accurate in patients with acute kidney failure, extremes of body mass or the acutely ill. http://[employer]/[facility] eGFR 75 >=60 mL/min/1. 73 m?? [facility] Comment: The eGFR was calculated using the CKD-EPI equation. As with all creatinine based estimates of kidney function, eGFR values calculated with the CKD-EPI equation are not accurate in patients with acute kidney failure, extremes of body mass or the acutely ill. http://[employer]/[facility] Blood specimen (specimen) 04/25/2019 12:00 PM EDT 04/25/2019 12:03 PM EDT Narrative Resulting Agency Comment Spec In Lab Marcelle Weinberg CREDIT OFFICER CHEMISTRY ORDERAB LES Performing Organization Address City/State/[facility] Co de Phone Number [facility] [place] [address] documented in this encounter Visit Diagnoses Diagnosis Left sided colitis without complications Left sided ulcerative (chronic) colitis documented in this encounter Care Teams Spray Painting Machine Operator Relationship Specialty Start Date End Date Maximilian Fall MD [address] [place] [address] PCP - General 10/01/11 02/13/21 documented as of this encounter
--- OUTSIDE RECORDS SUMMARY | 2024-07-11 11:15 | XMS_ITS | Encounter Summary ---
Author Organization [facility] [place] [address] Care Team Providers Care Acute Care Certified Nursing Assistant Name Role Phone Maximilina Fall MD Primary Care Provider [phone] Reason for Visit * Reason Onset Date Comments Medication Refill 02/16/2020 Encounter Details Date Type Department Care Team (Late st Contact Info) Description 02/16/2020 [place] [address] Bethany Trivedi, RN Left sided colitis without complications Social [...] 9:00 AM EDT Office [place] [address] Dion Barlow MD [facility] [address] 09/01/2024 9:40 AM EDT Office Visit Cardiology at [address] [place] [address] Franky Shaver MD [facility] [place] [address] 09/01/2024 11:20 AM EDT Office Visit Dermatology at [address] [place] [address] Gómez Mrecer MD [facility] DR [place] [address] 09/21/2024 2:45 PM EDT Office Visit [place] [address] Trung Hoyos MD [facility] [place] [address] documented as of this encounter Visit Diagnoses Diagnosis Left sided colitis without complications Left sided ulcerative (chronic) colitis documented in this encounter Care Teams Acute Care Certified Nursing Assistant Relationship Specialty Start Date End Date Maximilian Fall MD [address] [place] [address] PCP - General 10/01/11 02/13/21 documented as of this encounter
--- OUTSIDE RECORDS SUMMARY | 2024-07-11 11:15 | XMS_ITS | Encounter Summary ---
Author Organization [facility] Address [facility] [place] [address] Care Team Providers Care Superintendent System Operation Name Role Phone Maximilian Fall MD Primary Care Provider [phone] Encounter Details Date Type Department Care Team (Late st Contact Info) Description 02/11/2019 Telephone [place] [address] Rachel Corral Social History Tobacco Use Types [...] - 02/11/2019 10:16 AM EDT Brian Rodriguez [id number] Diagnosis: Terrell 1. Have you ever had a colonoscopy before? [x] YES [] NO If Yes, Date of Last Terrell:_02/12/17 If yes, did you have any problems with the procedure? [] YES [x] NO Explain: What type of sedation was used: IV 2. Do you take any Blood Thinners? [] YES [x] NO If Yes, type: 3. Do you have a Pacemaker or Defibrillator device? [] YES [x] NO If Yes send Key Ring message to [facility] ENDO DEVICE CHECK 4. Are you [...] 9:00 AM EDT Office Visit [place] [address] Dion Barlow MD [facility] [place] [place] [address] 09/01/2024 9:40 AM EDT Office Visit Cardiology at [address] [place] [address] Franky Shaver MD [facility] [place] [address] 09/01/2024 11:20 AM EDT Office Visit Dermatology at [place] [address] [place] [address] Gómez Mercer MD [facility] [place] [address] 09/21/2024 2:45 PM EDT Office Visit Pain and [place] [address] Trung Hoyos MD [facility] [place] [place] [address] documented as of this encounter Visit Diagnoses Not on filedocumented in this encounter Care Teams Superintendent System Operation Relationship Specialty Start Date End Date Maximilian Fall MD [address] [place] [address] PCP - General 10/01/11 02/13/21 documented as of this encounter
--- OUTSIDE RECORDS SUMMARY | 2024-07-11 11:15 | XMS_ITS | Encounter Summary ---
Author Organization [facility] Address [facility] [place] [address] Care Team Providers Care Technical Director Name Role Phone Maximilian Fall MD Primary Care Provider [phone] Encounter Details Date Type Department Care Team (Latest Contact Info) Description 04/28/2019 3:07 PM EDT - 04/28/2019 6:06 PM EDT Hospital Encounter [place] [address] Iza Coates MD [facility] [place] [address] Discharge Disposition: Home Social History Tobacco Use [...] Care Everywhere. * EGD (Upper Endoscopy): Post-op (Mongolian) documented in this encounter Medications at Time [...] 90 tablet 3 11/22/2012 budesonide 2 mg/actuation Foam Place 2 mg [...] sedation) Iza Coates MD Gastroenterology attending Pager [phone] documented in this encounter Plan of Treatment Upcoming Encounters Date Type Department Care Team (Late st Contact Info) Description 08/15/2024 9:00 AM EDT Office [place] [address] Dion Barlow MD [facility] [place] [address] 09/01/2024 9:40 AM EDT Office Visit Cardiology at [address] [place] [address] Franky Shaver MD [facility] [place] [address] 09/01/2024 11:20 AM EDT Office Visit Dermatology at [facility] [address] [place] [address] Gómez Mercer MD [facility] DR [place] [address] 09/21/2024 2:45 PM EDT Office Visit Pain and Spine Center at [facility] [place] [address] Trung Hoyos MD [facility] [address] documented as of this encounter Procedures Procedure [...] 5:03 PM EDT 04/28/2019 5:03 PM EDT [facility] LABORATORY - 04/28/2019 5:03 PM EDT Specimen requisition ordered. ??Separate Pathology report to follow Iza Coates MD PATHOLOGY/CYTOLOG Y ORDERABLES [facility] [place] [address] * Specimen to Pathology (04/28/2019 5:03 PM EDT) AP Specimen 04/28/2019 5:03 PM EDT 04/28/2019 5:03 PM EDT Narrative [facility] - 04/28/2019 5:03 PM EDT Specimen requisition ordered. ??Separate Pathology report to follow Iza Coates MD PATHOLOGY/CYTOLOG Y ORDERABLES Performing Organization Address [facility] Co de Phone Number [facility] [place] [address] * Surgical Pathology Report (04/28/2019 4:50 PM EDT) Final Diagnosis [id number] ? Location: 4T; EA10; A The signing pathologist has (i) examined the relevant preparation(s) for the specimen(s) and (ii) rendered or confirmed the diagnosis(es). . ?Surgical Pathology DIAGNOSIS A - Random duodenum, biopsy: Duodenal mucosa within normal limits, including preserved villous architecture. B - Fundic gland, polypectomy: Gastric fundic gland polyp. Electronically signed by: ??Joana Soler MD Verified: ??05/02/2019 ?Pathologist Performed at: ??-[facility] Dept. of Pathology, [place], [place] CLINICAL INFORMATION Specimen Submitted: A - [...] labeled B1. ??ejr 05/02/2019 4:02 PM EDT [facility] GI Biopsy 04/28/2019 4:50 PM EDT 04/28/2019 4:50 PM EDT GI Biopsy 04/28/2019 4:50 PM EDT 04/28/2019 4:50 PM EDT Iza Coates MD PATHOLOGY/CYTOLOG Y ORDERABLES [facility] [place] [address] * UPPER GI ENDOSCOPY (04/28/2019 4:39 PM EDT) UPPER GI ENDOSCOPY [facility] Endoscopy Procedure Date: 04/28/2019 4:39 PM ? Patient Name: Brian Rodriguez ? Date of : 1950 ? Age: 68 ? Order #: [id number] ? Instrument Name: [id number] ? Procedure: ? Upper GI endoscopy Indications: ? Abnormal CT of the GI tract (duodenal ? thickening) Providers: ? Iza Coates MD, Nohemi Ball, ? RN, Jonathan Ko, Sales Account Associate Referring MD: ?Maximilian Fall MD Requesting Provider: [...] GENERAL SURGICAL ORD ERABLES Performing Organization Address City/[facility] Co de Phone Number [facility] * POCT Glucose (04/28/2019 3:46 PM EDT) Glucose, POC 91 65 - 199 mg/dL [facility] Comment: Supplemental ranges: <140 mg/dL before meals <180 mg/dL all other times of the day Blood specimen (specimen) 04/28/2019 3:46 PM EDT 04/28/2019 3:46 PM EDT Iza Cotaes MD POINT OF CARE KISHOR T ORDERABLES Performing Organization Address [facility] de Phone Number [facility] [place] [address] documented in this encounter Visit Diagnoses Not [...] RN) documented in this encounter Care Teams Technical Director Relationship Specialty Start Date End Date Maximilian Fall MD [address] [place] [address] PCP - General 10/01/11 02/13/21 documented as of this encounter
--- OUTSIDE RECORDS SUMMARY | 2024-07-11 11:15 | XMS_ITS | Encounter Summary ---
Author Organization Formerly [facility] [place] [address] Care Team Providers Care Multiple Games Dealer Name Role Phone Maximilian Fall MD Primary Care Provider [phone] Encounter Details Date Type Department Care Team (Late st Contact Info) Description 03/01/2020 Tele[place] [address] Suzanen Guillermo Social History Tobacco Use Types Packs/Day [...] 9:00 AM EDT Office [place] [address] Dion Barlow MD [facility] DR GASTROENTEROLOGY [place], [place] [address] 09/01/2024 9:40 AM EDT Office Visit Cardiology at [address] [place] [address] Franky Shaver MD [facility] [place] [address] 09/01/2024 11:20 AM EDT Office Visit Dermatology at [facility] [address] [place] [address] Gómez Mercer MD [facility] [place] [address] 09/21/2024 2:45 PM EDT Office Visit Pain and Spine Center at [facility] [place] [address] Trung Hoyos MD [facility] [address] documented as of this encounter Visit Diagnoses Not on filedocumented in this encounter Care Teams Multiple Games Dealer Relationship Specialty Start Date End Date Maximilian Fall MD [address] [facility] [place] [address] PCP - General 10/01/11 02/13/21 documented as of this encounter
--- OUTSIDE RECORDS SUMMARY | 2024-07-11 11:15 | XMS_ITS | Encounter Summary ---
Author Organization [facility] [place] [address] Care Team Providers Care Towel Distributor Name Role Phone Maximilian Flal MD Primary Care Provider [phone] Reason for Visit * Reason Onset Date Comments Prior Authorization 05/10/2018 Encounter Details Date Type Department Care Team (Late st Contact Info) Description 05/10/2018 Telephone [place] [address] Jarret Roa agronomy research manager Social History Tobacco Use Types Packs/Day [...] x 4 weeks Insurance & Phone #: [employer] minutes Part D ID #: [id number] Trialed (dosage, frequency): hydrocortisone enemas (causes nausea), sulfasalazine, canasa (caused pelvic pain), cortifoam (manufacturing shortage), Asacol, Rowasa, prednisone Diagnosis/ICD-10: 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 Notes: Submitted via CoverMyMeds Approved documented in this encounter Plan of Treatment Upcoming Encounters Date Type Department Care Team (Late st Contact Info) Description 08/15/2024 9:00 AM EDT Office Visit [place] [address] Dion Barlow MD [facility] [place] [address] 09/01/2024 9:40 AM EDT Office Visit Cardiology at [address] [phone] Franky Shaver MD [facility] [place] [address] 09/01/2024 11:20 AM EDT Office Visit Dermatology at [place] [address] [place] [address] Gómez Mercer MD [facility] [place] [address] 09/21/2024 2:45 PM EDT Office Visit [facility] [place] [address] Trung Hoyos MD [facility] [place] [address] documented as of this encounter Visit Diagnoses Not on filedocumented in this encounter Care Teams Towel Distributor Relationship Specialty Start Date End Date Maximilian Fall MD [address] [facility] [place] [address] PCP - General 10/01/11 02/13/21 documented as of this encounter
--- OUTSIDE RECORDS SUMMARY | 2024-07-11 11:15 | XMS_ITS | Encounter Summary ---
Author Organization [facility] Address [facility] [place] [address] Care Team Providers Care Shackler Name Role Phone Maximilian Fall MD Primary Care Provider [phone] Encounter Details Date Type Department Care Team (Latest Contact Info) Description 02/22/2019 2:13 PM EDT - 02/22/2019 5:26 PM EDT Hospital Encounter [place] [address] Dion Barlow MD [facility] [place] [address] Discharge Disposition: Home Social History Tobacco Use [...] - 02/22/2019 5:05 PM EDT Please call [phone] before 8pm Mon-Fri with problems, questions or concerns. If you call after 8pm or on weekends, call the Hospital at [phone] and ask to speak to the Senior Director Marketing supervisor electron tube processing and the ruffling machine operator will contact that person for you. * Attachments The following attachments cannot be sent through Care Everywhere. * Colonoscopy: Post-op (Colombian) * Colon Polyps (Colombian) documented in this encounter Medications at Time [...] mouth daily. 90 tablet 3 11/22/2012 sulfaSALAzine (AZULFIDINE) 500 mg Tablet Take 4 [...] 9:00 AM EDT Office [place] [address] Dion Barlow MD [facility] [address] 09/01/2024 9:40 AM EDT Office Visit Cardiology at [address] [place] [address] Franky Shaver MD [facility] [address] 09/01/2024 11:20 AM EDT Office Visit Dermatology at [facility] [address] [place] [address] Gómez Mercer MD [facility] [address] [place] [address] 09/21/2024 2:45 PM EDT Office Visit [facility] [place] [address] Trung Hoyos MD [facility] [address] documented as of this encounter Procedures Procedure [...] PM EDT 02/22/2019 4:56 PM EDT Narrative [facility] - 02/22/2019 4:56 PM EDT Specimen requisition ordered. ??Separate Pathology report to follow L Karthik Barlow MD PATHOLOGY/CYTOLOGY O RDMELISSA Performing Organization Address [facility]/[place] [address] * Specimen to Pathology (02/22/2019 4:56 PM EDT) AP Specimen 02/22/2019 4:56 PM EDT 02/22/2019 4:56 PM EDT Narrative [facility] - 02/22/2019 4:56 PM EDT Specimen requisition ordered. ??Separate Pathology report to follow L Karthik Barlow MD PATHOLOGY/CYTOLOGY O RDERABLES Performing Organization Address City/[facility]/[place] [address] * Specimen to Pathology (02/22/2019 4:56 PM EDT) AP Specimen 02/22/2019 4:56 PM EDT 02/22/2019 4:56 PM EDT Narrative [facility] - 02/22/2019 4:56 PM EDT Specimen requisition ordered. ??Separate Pathology report to follow L Karthik Barlow MD PATHOLOGY/CYTOLOGY O RDERAOMAR [facility] [place] [address] * Specimen to Pathology (02/22/2019 4:56 PM EDT) AP Specimen 02/22/2019 4:56 PM EDT 02/22/2019 4:56 PM EDT Narrative [facility] - 02/22/2019 4:56 PM EDT Specimen requisition ordered. ??Separate Pathology report to follow L Karthik Barlow MD PATHOLOGY/CYTOLOGY O CEE Performing Organization Address [facility]/[place] [address] * Specimen to Pathology (02/22/2019 4:56 PM EDT) AP Specimen 02/22/2019 4:56 PM EDT 02/22/2019 4:56 PM EDT Narrative [facility] - 02/22/2019 4:56 PM EDT Specimen requisition ordered. ??Separate Pathology report to follow L Karthik Barlow MD PATHOLOGY/CYTOLOGY O CEE Performing Organization Address [facility]/[place] [address] * Specimen to Pathology (02/22/2019 4:56 PM EDT) AP Specimen 02/22/2019 4:56 PM EDT 02/22/2019 4:56 PM EDT Narrative [facility] - 02/22/2019 4:56 PM EDT Specimen requisition ordered. ??Separate Pathology report to follow L Karthik Barlow MD PATHOLOGY/CYTOLOGY O CEE Performing Organization Address [facility] [place] [address] * Specimen to Pathology (02/22/2019 4:56 PM EDT) AP Specimen 02/22/2019 4:56 PM EDT 02/22/2019 4:56 PM EDT Narrative [facility] - 02/22/2019 4:56 PM EDT Specimen requisition ordered. ??Separate Pathology report to follow L Karthik Barlow MD PATHOLOGY/CYTOLOGY O CEE Performing Organization Address [facility] [place] [address] * Specimen to Pathology (02/22/2019 4:56 PM EDT) AP Specimen 02/22/2019 4:56 PM EDT 02/22/2019 4:56 PM EDT Narrative [facility] - 02/22/2019 4:56 PM EDT Specimen requisition ordered. ??Separate Pathology report to follow L Karthik Barlow MD PATHOLOGY/CYTOLOGY O CEE Performing Organization Address [facility] [place] [address] * Surgical Pathology Report (02/22/2019 4:23 PM EDT) Final Diagnosis [id number] ? Location: 4T; EA06; A The signing [...] Tucker MD Verified: ??02/26/2019 ?Pathologist Performed at: ??-[facility] Dept. of Pathology, [place], [place] CLINICAL INFORMATION Specimen Submitted: A - [...] labeled H1-H2. ??apb 02/26/2019 4:24 PM EDT [facility] GI Biopsy 02/22/2019 4:23 [...] L Karthik Barlow MD PATHOLOGY/CYTOLOGY O RDERABLES [facility] [place] [address] * COLONOSCOPY (02/22/2019 3:57 PM EDT) COLONOSCOPY [facility] Endoscopy ___ Procedure Date: 02/22/2019 3:57 PM ? Patient Name: Brian Rodriguez ? Date of : 1950 ? Age: 68 ? Order #: [id number] ? Instrument Name: [id number] ? ___ Procedure: ? Colonoscopy Indications: ? [...] preparation was evaluated using ? the BBPS ([place] Bowel Preparation ? Scale) with scores of: [...] GENERAL SURGICAL ORD ERABLES Performing Organization Address City/State/[facility] Co de Phone Number [place] documented in this encounter Visit Diagnoses Not on filedocumented in this encounter Active and Recently Administered Medications Times are shown in EDT. PRN Medication Order 02/20/2019 02/21/2019 02/22/2019 fentaNYL 50 mcg/mL multi-dose injection (CANCELED) ONCE PRN, Starting on Thu02/22/19 at 1610, Until Thu02/22/19 at 1926, Intra-Operative (Intra-Procedure), Routine 1610 (Given - Provid er: Alannah Singletary RN)161 (Given - Provider: Alannah Singletary RN)1620 (Given - Provider: Alannah Singletary, RONY)1627 (Given - Provider: Alannah Singletary, RN) midazolam (PF) (VERSED) multi-dose injection (CANCELED) ONCE PRN, Starting on Thu02/22/19 at 1610, Until Tu02/22/19 at 1926, Intra-Operative (Intra-Procedure), Routine 1610 (Given - Provid er: Alannah Singletary RN)1613 (Given - Provider: Alannah Singletary RN)1620 (Given - Provider: Alannah Singletary RN)1628 (Given - Provider: Alannah Singletary RN) documented in this encounter Care Teams Shackler Relationship Specialty Start Date End Date Maximilian Fall MD [address] [place] [address] PCP - General 10/01/11 02/13/21 documented as of this encounter
--- OUTSIDE RECORDS SUMMARY | 2024-07-11 11:15 | XMS_ITS | Encounter Summary ---
Author Organization [facility] Address [facility] [place] [address] Care Team Providers Care Glue Bone Crusher Name Role Phone Maximilian Fall MD Primary Care Provider [phone] Encounter Details Date Type Department Care Team (Late st Contact Info) Description 02/22/2019 3:30 PM EDT - 02/22/2019 4:15 PM EDT [place] [address] Dion Barlow MD [facility] [place] [address] COLONOSCOPY FLEXIBLE, WITH BX (WRVU 3.56) Social [...] - 02/22/2019 5:05 PM EDT Please call [phone] before 8pm Mon-Fri with problems, questions or concerns. If you call after 8pm or on weekends, call the Hospital at [phone] and ask to speak to the Airport Ramp Attendant telephone exchange operator and the dryer operator will contact that person for you. * Attachments The following attachments cannot be sent through Care Everywhere. * Colonoscopy: Post-op (North Korean) * Colon Polyps ([place]) documented in this encounter Medications at Time [...] EDT Office [place] [address] Dion Barlow MD [facility] [place] [address] 09/01/2024 9:40 AM EDT Office Visit Cardiology at [address] [place] [address] Franky Shaver MD [facility] [place] [place] [address] 09/01/2024 11:20 AM EDT Office Visit Dermatology at [facility] [address] [place] [address] Gómez Mercer MD [facility] DR EDDIE [place] [address] 09/21/2024 2:45 PM EDT Office Visit [place] [address] Trung Hoyos MD [facility] [place] [address] documented as of this encounter Procedures Procedure [...] MD PATHOLOGY/CYTOLOGY O CEE Performing Organization Address [facility]/[place] [address] * Specimen to Pathology (02/22/2019 4:56 PM EDT) AP Specimen 02/22/2019 4:56 PM EDT 02/22/2019 4:56 PM EDT Narrative [facility] - 02/22/2019 4:56 PM EDT Specimen requisition ordered. ??Separate Pathology report to follow L Karthik Barlow MD PATHOLOGY/CYTOLOGY O CEE Performing Organization Address City/[facility]/[place] [address] * Specimen to Pathology (02/22/2019 4:56 PM EDT) AP Specimen 02/22/2019 4:56 PM EDT 02/22/2019 4:56 PM EDT Narrative [facility] - 02/22/2019 4:56 PM EDT Specimen requisition ordered. ??Separate Pathology report to follow L Karthik Barlow MD PATHOLOGY/CYTOLOGY O CEE Performing Organization Address City/[facility]/ZIP Co de [place] [address] * Specimen to Pathology (02/22/2019 4:56 PM EDT) AP Specimen 02/22/2019 4:56 PM EDT 02/22/2019 4:56 PM EDT Narrative [facility] - 02/22/2019 4:56 PM EDT Specimen requisition ordered. ??Separate Pathology report to follow L Karthik Barlow MD PATHOLOGY/[place] [address] * Specimen to Pathology (02/22/2019 4:56 PM EDT) AP Specimen 02/22/2019 4:56 PM EDT 02/22/2019 4:56 PM EDT Narrative [facility] - 02/22/2019 4:56 PM EDT Specimen requisition ordered. ??Separate Pathology report to follow L Karthik Barlow MD PATHOLOGY/[place] [address] * Specimen to Pathology (02/22/2019 4:56 PM EDT) AP Specimen 02/22/2019 4:56 PM EDT 02/22/2019 4:56 PM EDT Narrative [facility] - 02/22/2019 4:56 PM EDT Specimen requisition ordered. ??Separate Pathology report to follow L Karthik Barlow MD PATHOLOGY/[place] [address] * Specimen to Pathology (02/22/2019 4:56 PM EDT) AP Specimen 02/22/2019 4:56 PM EDT 02/22/2019 4:56 PM EDT [facility] - 02/22/2019 4:56 PM EDT Specimen requisition ordered. ??Separate Pathology report to follow L Karthik Barlow MD PATHOLOGY/CYTOLOGY O CEE Performing Organization Address [facility] Co de Phone Number [facility] [place] [address] * Specimen to Pathology (02/22/2019 4:56 PM EDT) AP Specimen 02/22/2019 4:56 PM EDT 02/22/2019 4:56 PM EDT Narrative [facility] - 02/22/2019 4:56 PM EDT Specimen requisition ordered. ??Separate Pathology report to follow L Karthik Barlow MD PATHOLOGY/CYTOLOGY O CEE Performing Organization Address [facility] de Phone Number [facility] [place] [address] * Surgical Pathology Report (02/22/2019 4:23 PM EDT) Final Diagnosis [id number] ? Location: 4T; EA06; A The signing [...] Tucker MD Verified: ??02/26/2019 ?Pathologist Performed at: ??-[facility] Dept. [place]ology, [place], [place] CLINICAL INFORMATION Specimen Submitted: A - [...] L Karthik Barlow MD PATHOLOGY/CYTOLOGY O RDERABLES [facility] [place] [address] * COLONOSCOPY (02/22/2019 3:57 PM EDT) COLONOSCOPY [facility] Endoscopy ___ Procedure Date: 02/22/2019 3:57 PM ? Patient Name: Brian Rodriguez ? Date of : 1950 ? Age: 68 ? Order #: [id number] ? Instrument Name: [id number] ? ___ Procedure: ? Colonoscopy Indications: ? High risk colon cancer surveillance: ? Ulcerative colitis Patient Profile: ? This is a 68 year old male. This ? patient has left-sided ulcerative ? colitis, is taking sulfasalazine and ? cortenemas and is experiencing mild ? symptoms. Providers: ? Davina Barlow MD, Alannah Singletary, ? RONY, Anita [...] preparation was evaluated using ? the BBPS ([place] Bowel Preparation ? Scale) with scores of: [...] RN) documented in this encounter Care Teams Glue Bone Crusher Relationship Specialty Start Date End Date Maximilian Fall MD [address] [address] PCP - General 10/01/11 02/13/21 documented as of this encounter
--- OUTSIDE RECORDS SUMMARY | 2024-07-11 11:15 | XMS_ITS | Encounter Summary ---
Author Organization [facility] Address [facility] [place] [address] Care Team Providers Care Inserting Machine Operator Name Role Phone Maximilian Fall MD Primary Care Provider [phone] Reason for Visit * Reason Comments Follow-up Encounter Details Date Type Department Care Team (Late st Contact Info) Description 05/03/2018 8:30 AM EDT Office Visit [place] [address] Dion Barlow MD [facility] [place] [address] Ulcerative pancolitis with complication Social History Tobacco [...] Overview Note: ? Colonoscopy 04/08/10 ([facility] G[facility] [...] visit. 15 min of this 25 min [id number]-sy-bktv visit was spent counseling the patient in the issues outlined above. Davina Barlow MD Assistant District Attorneycoremaking supervisor Section of Gastroenterology [place] [address] CC: Maximilian Fall MD [address] [place] [phone] documented in this encounter Miscellaneous Notes * Addendum Note - Izabela Spencer - 05/03/2018 9:35 AM EDTAddended by: IZABELA SPENCER on: 05/03/2018 09:35 AM Modules accepted: Orders documented in this encounter Plan of Treatment Upcoming Encounters Date Type Department Care Team (Late st Contact Info) Description 08/15/2024 9:00 AM EDT Office Visit G[place] [address] Dion Barlow MD [facility] [place] [address] 09/01/2024 9:40 AM EDT Office Visit Cardiology at [address] [place] [address] Franky Shaver MD [facility] [place] [address] 09/01/2024 11:20 AM EDT Office Visit Dermatology at [facility] [address] [place] [address] Gómez Mercer MD [facility] DR [place] [address] 09/21/2024 2:45 PM EDT Office Visit Pain and Spine Center at [facility] [place] [address] Trung Hoyos MD [facility] [place] [address] documented as of this encounter Procedures Procedure [...] 9:46 AM EDT) Neutrophil % 62.5 % [facility] Neutrophil Absolute 3.86 1.70 - 6.10 x10(3)/[facility] Lymph % 27.2 % [facility] Lymphocytes Abs 1.7 0.9 - 3.2 x10(3)/[facility] Monocyte % 7.1 % [facility] Monocyte Abs 0.4 0.3 - 0.9 x10(3)/[facility] Eos % 2.1 % [facility] Eosinophils Abs 0.1 0.0 - 0.4 x10(3)/[facility] Basophil % 0.6 % [facility] Baso Absolute 0.0 0.0 - 0.1 x10(3)/[facility] Immature Gran % 0.50 % [facility] Comment: Immature granulocytes(IG's)percentage and absolute count will include metamyelocytes, myelocytes, and promyelocytes. Blood smears from CBCs yielding IG's will be scanned manually for concordance. If this scan disagrees with the automated IG or if promyelocytes are noted, a manual differential will be performed. Immature Gran Absolute 0.03 0.00 - 0.04 x10(3)/[facility] Blood specimen (specimen) 05/03/2018 9:46 AM EDT 05/03/2018 10:12 AM EDT Narrative Resulting Agency Comment Spec In Lab L Karthik Barlow MD HEMATOLOGY ORDERABLE S [facility] [place] [address] * (ABNORMAL) Hemogram (05/03/2018 9:46 AM EDT) White Blood Cell 6.2 4.0 - 9.5 x10(3)/mc L [facility] Red Blood Cell 4.02(L) 4.58 - 5.54 x10(6)/ L [facility] Hemoglobin 13.0(L) 13.7 - 16.5 gm/dL [facility] Hematocrit 39.7(L) 40.5 - 48.5 % [facility] Mean Cell Volume 98.8(H) 82.9 - 93.1 fL [facility] Mean Cell Hemoglobin 32.3(H) 27.5 - 32.1 pg [facility] Mean Cell Hemoglobin Concentration 32.7 32.0 - 35.7 gm/dL [facility] Platelet 202 145 - 357 x10(3)/mc L [facility] RDW Standard Deviation 45.3(H) 36.0 - 45.0 fL [facility] RDW coefficient of variation 12.5 11.4 - 13.8 % [facility] Mean Platelet Volume 11.2 7.6 - 12.9 fL [facility] NRBC% auto 0.0 % [facility] NRBC Absolute 0.000 0.000 - 0.000 x10(3)/mc L [facility] Blood specimen (specimen) 05/03/2018 9:46 AM EDT 05/03/2018 10:12 AM EDT Narrative Resulting Agency Comment Spec In Lab L Karthik Barlow MD HEMATOLOGY ORDERABLE S Performing Organization Address City/[facility]/ZIP Co de Phone Number [facility] [place] [address] * CRP, acute inflammation (05/03/2018 9:46 AM EDT) C-Reactive Protein 3.1 <=4.9 mg/L [facility] Blood specimen (specimen) 05/03/2018 9:46 AM EDT 05/03/2018 10:12 AM EDT Narrative Resulting Agency Comment Spec In Lab L Karthik Barlow MD CHEMISTRY ORDERABLES [facility] [place] [address] * Comprehensive metabolic panel (non-fasting) (05/03/2018 9:46 AM EDT) Glucose 110 65 - 199 mg/dL [facility] Comment:Diabetes: >=200 mg/d L plus symptoms Blood Urea Nitrogen 13 10 - 20 mg/dL [facility] Creatinine 0.92 0.80 - 1.50 mg/dL [facility] Sodium 143 135 - 145 mmol/L [facility] Potassium 4.4 3.5 - 5.0 mmol/L [facility] Comment: Please note: ??Patients with WBC >100,000 may have falsely elevated Potassium levels. ??For accurate Potassium quantification in these patients send serum separator tube (gold top) for subsequent determinations. ??Contact the Clinical Chemistry Laboratory if there are any questions. Chloride 105 98 - 107 mmol/L [facility] Carbon Dioxide 27 22 - 31 mmol/L [facility] Anion Gap 11 5 - 15 mmol/L [facility] Calcium 9.9 8.5 - 10.5 mg/dL [facility] Protein, Total 7.7 6.1 - 8.0 gm/dL [facility] Albumin 4.1 3.2 - 5.2 gm/dL [facility] Aspartate Aminotransferase 11 0 - 39 unit/L [facility] Alanine Aminotransferase 13 0 - 55 unit/L [facility] Alkaline Phosphatase 61 40 - 120 unit/L [facility] Bilirubin, Total 0.3 0.2 - 1.3 mg/dL [facility] Est Glomerular Filtration Rate >60 >=60 [facility] Comment: The reported eGFR should be multiplied by 1.2 for patients. The MDRD is not an appropriate measure of renal function for patients with body mass extremes or in patients with acute kidney failure. http://Snapchat.Prevoty/DHnkdep http://Snapchat.Prevoty/DHMCnkf Blood specimen (specimen) 05/03/2018 9:46 AM EDT 05/03/2018 10:12 AM EDT Narrative Resulting Agency Comment Spec In Lab L Karthik Barlow MD CHEMISTRY ORDERABLES [facility] [place] [address] documented in this encounter Visit Diagnoses Diagnosis Ulcerative pancolitis with complication documented in this encounter Care Teams Inserting Machine Operator Relationship Specialty Start Date End Date Maximilian Fall MD [address] [facility] [address] [place] [address] PCP - General 10/01/11 02/13/21 documented as of this encounter
--- OUTSIDE RECORDS SUMMARY | 2024-07-11 11:15 | XMS_ITS | Encounter Summary ---
Author Organization [facility] Address [facility] [place] [address] Care Team Providers Care Consulting Software Engineer Name Role Phone Maximilian Fall MD Primary Care Provider [phone] Encounter Details Date Type Department Care Team (Late st Contact Info) Description 04/28/2019 4:15 PM EDT - 04/28/2019 4:45 PM EDT [place] [address] Iza Coates MD [facility] [place] [address] EGD, UPPER GI ENDOSCOPY (WRVU 2.09) Social [...] Care Everywhere. * EGD (Upper Endoscopy): Post-op (Lithuanian) documented in this encounter Medications at Time [...] sedation) Iza Coates MD Gastroenterology attending Pager [phone] documented in this encounter Plan of Treatment Upcoming Encounters Date Type Department Care Team (Late st Contact Info) Description 08/15/2024 9:00 AM EDT Office [place] [address] Dion Barlow MD [facility] [place] [address] 09/01/2024 9:40 AM EDT Office Visit Cardiology at [address] [phone] Franky Shaver MD [facility] [place] [address] 09/01/2024 11:20 AM EDT Office Visit Dermatology at [facility] [address] [place] [address] Gómez Mercer MD [facility] DR EDD[place] [address] 09/21/2024 2:45 PM EDT Office Visit [facility] at [facility] [place] [phone] Trung Hoyos MD [facility] [place] [address] documented as of this encounter Procedures Procedure [...] 5:03 PM EDT 04/28/2019 5:03 PM EDT [facility] - 04/28/2019 5:03 PM EDT Specimen requisition ordered. ??Separate Pathology report to follow Iza Coates MD PATHOLOGY/CYTOLOG Y ORDERABLES Performing Organization Address [facility] Co de Phone Number [facility] [place] [address] * Specimen to Pathology (04/28/2019 5:03 PM EDT) AP Specimen 04/28/2019 5:03 PM EDT 04/28/2019 5:03 PM EDT Narrative [facility] - 04/28/2019 5:03 PM EDT Specimen requisition ordered. ??Separate Pathology report to follow Iza Coates MD PATHOLOGY/CYTOLOG Y ORDERABLES Performing Organization Address [facility] [place] [address] * Surgical Pathology Report (04/28/2019 4:50 PM EDT) Final Diagnosis [id number] ? Location: 4T; EA10; A The signing pathologist has (i) examined the relevant preparation(s) for the specimen(s) and (ii) rendered or confirmed the diagnosis(es). . ?Surgical Pathology DIAGNOSIS A - Random duodenum, biopsy: Duodenal mucosa within normal limits, including preserved villous architecture. B - Fundic gland, polypectomy: Gastric fundic gland polyp. Electronically signed by: ??Joana Soler MD Verified: ??05/02/2019 ?Pathologist Performed at: ??-[facility] Dept. of Pathology, [place], [place] CLINICAL INFORMATION Specimen Submitted: A - [...] labeled B1. ??ejr 05/02/2019 4:02 PM EDT [facility] GI Biopsy 04/28/2019 4:50 PM EDT 04/28/2019 4:50 PM EDT GI Biopsy 04/28/2019 4:50 PM EDT 04/28/2019 4:50 PM EDT Iza Coates MD PATHOLOGY/CYTOLOG Y ORDERABLES [facility] [place] [address] * UPPER GI ENDOSCOPY (04/28/2019 4:39 PM EDT) UPPER GI ENDOSCOPY [facility] Endoscopy Procedure Date: 04/28/2019 4:39 PM ? Patient Name: Brian Rodriguez ? Date of : 1950 ? Age: 68 ? Order #: [id number] ? Instrument Name: [id number] ? Procedure: ? Upper GI endoscopy Indications: ? Abnormal CT of the GI tract (duodenal ? thickening) Providers: ? Iza Coates MD, Nohemi Ball, ? RN, Jonathan Ko, Director Of Research Center Referring MD: ?Maximilian Fall MD Requesting Provider: [...] Glucose, POC 91 65 - 199 mg/dL [facility] Comment: Supplemental ranges: <140 mg/dL before meals <180 mg/dL all other times of the day Blood specimen (specimen) 04/28/2019 3:46 PM EDT 04/28/2019 3:46 PM EDT Iza Coates MD POINT OF CARE KISHOR T ORDERABLES Performing Organization Address [facility] Co de Phone Number [facility] [place] [address] documented in this encounter Visit Diagnoses Diagnosis [...] Nohemi Ball RN)[phone] (Given - Provider: Nohemi Blal RN) documented in this encounter Care Teams Consulting Software Engineer Relationship Specialty Start Date End Date Maximilian Fall MD [address] [place] [address] PCP - General 10/01/11 02/13/21 documented as of this encounter
--- OUTSIDE RECORDS SUMMARY | 2024-07-11 11:15 | XMS_ITS | Encounter Summary ---
[place] [address] Care Team Providers Care Personal Care Service Provider Name Role Phone Maximilian Fall MD Primary Care Provider Encounter Details Date Type Department Care Team (Late st Contact Info) Description 04/25/2019 Telephone [place] [phone] Brandy Durham Social History Tobacco Use Types [...] conditions (especially heart or lung)?:asthma BMI:30.53 Prep:proclear Bowling Alley Manager?:yes Instructions to patient?:instructions to pt@4L/Exit~jhd documented in this encounter Plan of Treatment Upcoming Encounters Date Type Department Care Team (Late st Contact Info) Description 08/15/2024 9:00 AM EDT Office Visit [place] [phone] Dion Barlow MD [facility] [place] [address] 09/01/2024 9:40 AM EDT Office Visit Cardiology at [address] [address] Franky Shaver MD [facility] [place] [address] 09/01/2024 11:20 AM EDT Office Visit Dermatology at [address] [place] [address] Gómez Mercer MD [facility] [place] [address] 09/21/2024 2:45 PM EDT Office Visit [facility] [place] [phone] Trung Hoyos MD [facility] [place] [address] documented as of this encounter Visit Diagnoses Not on filedocumented in this encounter Care Teams Personal Care Service Provider Relationship Specialty Start Date End Date Maximilian Fall MD [address] [facility] [facility] 1 [place] [address] PCP - General 10/01/11 02/13/21 documented as of this encounter
--- OUTSIDE RECORDS SUMMARY | 2024-07-11 11:15 | XMS_ITS | Encounter Summary ---
Author Organization [facility] [address] Care Team Providers Care Risk Tech Name Role Phone Maximilian Fall MD Primary Care Provider [phone] Reason for Visit * Reason Onset Date Comments Medication Refill 03/12/2018 Encounter Details Date Type Department Care Team (Late st Contact Info) Description 03/12/2018 [place] [address] Bethany Trivedi, RN Pain in right hip; Chronic ulcerative enterocolitis, [...] 9:00 AM EDT Office [place] [phone] Dion Barlow MD [facility] [place] [address] 09/01/2024 9:40 AM EDT Office Visit Cardiology at [address] [place] [phone] Franky Shaver MD [facility] [place] [address] 09/01/2024 11:20 AM EDT Office Visit Dermatology at [facility] [address] [place] [address] Gómez Mercer MD [facility] DR EDD[place] [address] 09/21/2024 2:45 PM EDT Office Visit [place] [phone] Trung Hoyos MD [facility] [place] [address] documented as of this encounter Visit Diagnoses Diagnosis Pain in right hip Pain in joint, pelvic region and thigh Chronic ulcerative enterocolitis, unspecified complication documented in this encounter Care Teams Risk Tech Relationship Specialty Start Date End Date Maximilian Fall MD [address] [place] [address] PCP - General 10/01/11 02/13/21 documented as of this encounter
--- OUTSIDE RECORDS SUMMARY | 2024-07-11 11:15 | XMS_ITS | Encounter Summary ---
Author Organization Replaced By [facility] Address [facility] [place] [address] Care Team Providers Care Principal Network Architect Name Role Phone Josue Wilkinson MD Primary Care Provider [phone] Encounter Details Date Type Department Care Team (Latest Contact Info) Description 02/26/2021 2:52 PM EDT - 02/26/2021 6:22 PM EDT Hospital Encounter [place] [address] Dion Barlow MD [facility] [place] [address] Discharge Disposition: Home Social History Tobacco Use [...] to be checked. 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 Follow up care is a le part [...] EDT Office [place] [address] Dion Barlow MD [facility] [place] [address] 09/01/2024 9:40 AM EDT Office Visit Cardiology at [address] [place] [address] Franky Shaver MD [facility] [place] [address] 09/01/2024 11:20 AM EDT Office Visit Dermatology at [facility] [address] [place] [address] Gómez Mercer MD [facility] [place] [address] 09/21/2024 2:45 PM EDT Office Visit [place] [phone] Trung Hoyos MD [facility] [place] [address] documented as of this encounter Procedures Procedure Name Priority Date/Time Associated Diagnosis Comments POCT GLUCOSE Routine 02/26/2021 5:51 PM EDT SPECIMEN TO PATHOLOGY Routine 02/26/2021 5:10 PM EDT SPECIMEN TO PATHOLOGY Routine 02/26/2021 5:10 PM EDT SPECIMEN TO PATHOLOGY Routine 02/26/2021 5:10 PM EDT SURGICAL PATHOLOGY REPORT Routine 02/26/2021 4:53 PM EDT Colonoscopy, [address] ([id number]) 02/26/2021 4:28 PM EDT a repeat colonoscopy in two years from 02/22/19 COLONOSCOPY Routine 02/26/2021 4:21 PM EDT POCT GLUCOSE Routine 02/26/2021 3:42 PM EDT documented in this encounter Results * POCT Glucose (02/26/2021 5:51 PM EDT) Glucose, POC 160 65 - 199 mg/dL [facility] Comment: Supplemental ranges: <140 mg/dL before meals <180 mg/dL all other times of the day Blood specimen (specimen) 02/26/2021 5:51 PM EDT 02/26/2021 12:00 PM EDT L Karthik Barlow MD POINT OF CARE TEST O CEE Performing Organization Address [facility] Co de Phone Number [facility] [place] [address] * Specimen to Pathology (02/26/2021 5:10 PM EDT) AP Specimen 02/26/2021 5:10 PM EDT 02/26/2021 5:10 PM EDT Narrative [facility] - 02/26/2021 5:10 PM EDT Specimen requisition ordered. ??Separate Pathology report to follow L Karthik Barlow MD PATHOLOGY/CYTOLOGY O CEE Performing Organization Address City/[facility]/ZIP Co de Phone Number [facility] [place] [address] * Specimen to Pathology (02/26/2021 5:10 PM EDT) AP Specimen 02/26/2021 5:10 PM EDT 02/26/2021 5:10 PM EDT Narrative [facility] - 02/26/2021 5:10 PM EDT Specimen requisition ordered. ??Separate Pathology report to follow L Karthik Barlow MD PATHOLOGY/CYTOLOGY O CEE [facility] [place] [address] * Specimen to Pathology (02/26/2021 5:10 PM EDT) AP Specimen 02/26/2021 5:10 PM EDT 02/26/2021 5:10 PM EDT Narrative [facility] - 02/26/2021 5:10 PM EDT Specimen requisition ordered. ??Separate Pathology report to follow L Karthik Barlow MD PATHOLOGY/CYTOLOGY O RDERABLES Performing Organization Address [facility] Co de Phone Number [facility] [place] [address] * Surgical Pathology Report (02/26/2021 4:53 PM EDT) Final Diagnosis [id number] ? Location: 4T; 08; A The signing pathologist has (i) examined [...] MD Verified: ??03/04/2021 16:33 ??Pathologist Performed at: ??-[facility] Dept. of [place]ology, [place], [place] SPECIMEN(S) SUBMITTED A - right colon [...] labeled C1. ??shb 03/04/2021 4:33 PM EDT [facility] GI Biopsy 02/26/2021 4:53 PM EDT 02/26/2021 4:53 PM EDT GI Biopsy 02/26/2021 4:53 PM EDT 02/26/2021 4:53 PM EDT GI Biopsy 02/26/2021 4:53 PM EDT 02/26/2021 4:53 PM EDT L Karthik Barlow MD PATHOLOGY/CYTOLOGY O DANIELERAOMAR [facility] [place] [address] * COLONOSCOPY (02/26/2021 4:21 PM EDT) COLONOSCOPY [facility] Endoscopy ___ Procedure Date: 02/26/2021 4:21 PM ? Patient Name: Brian Rodriguez ? Date of : 1950 ? Age: 70 ? Order #: [id number] ? Instrument Name: [id number] ? ___ Procedure: ? Colonoscopy Indications: ? [...] preparation was evaluated using ? the BBPS (Donner Bowel Preparation ? Scale) with scores of: [...] documented by the sedation RN. ? _ LAnalia Barlow MD 02/26/2021 5:56:12 PM Number of Addenda: 0 Note Initiated On: 02/26/2021 4:21 PM PROVATION 02/26/2021 4:21 PM EDT Josue Wilkinson MD GENERAL SURGICAL ORD ERABLES PROVATION * POCT Glucose (02/26/2021 3:42 PM EDT) Glucose, POC 128 65 - 199 mg/dL [facility] Comment: Supplemental ranges: <140 mg/dL before meals <180 mg/dL all other times of the day Blood specimen (specimen) 02/26/2021 3:42 PM EDT 02/26/2021 12:00 PM EDT Dion Barlow MD POINT OF CARE TEST O RDERABLES [facility] [place] [address] documented in this encounter Visit Diagnoses Not [...] Lawson RN)[phone] (Given - Provider: Marcelo Lawson RN)163 (Given - Provider: Marcelo Lawson RN)164 (Given - Provider: Marcelo Lawson RN)164 (Given - Provider: Marcelo Lawson RN) ondansetron (pf) (Zofran) (2 mg/mL) injection 4 mg (COMPLETED) 4 mg, Intravenous, ONCE PRN, 1 dose, Starting on Thu02/26/21 at 1743, Until Thu02/26/21 at 1722, Nausea, Endoscopy (Recovery-Hospital Unit) 172 (Given - Provid er: Emilia Love RN) documented in this encounter Care Teams Principal Network Architect Relationship Specialty Start Date End Date Josue Wilkinson MD PCP - General General Internal Medicine 02/14/2107/26 documented as of this encounter
--- OUTSIDE RECORDS SUMMARY | 2024-07-11 11:15 | XMS_ITS | Encounter Summary ---
Author Organization [facility]ina [facility] [place] [address] Care Team Providers Care Spinner Hydraulic Name Role Phone Maximilian Fall MD Primary Care Provider [phone] Encounter Details Date Type Department Care Team (Latest Contact Info) Description 04/25/2019 12:15 PM EDT Ancillary Procedure [place] [phone] Marcelle Weinberg, JAZMINE [facility] [place] [address] Left sided colitis without complications Social History [...] 9:00 AM EDT Office [place] [address] Dion Barlow MD [facility] [place] [address] 09/01/2024 9:40 AM EDT Office Visit Cardiology at [address] [place] [address] Franky Shaver MD [facility] [place] [address] 09/01/2024 11:20 AM EDT Office Visit Dermatology at [facility] [address] [place] [address] Gómez Mercer MD [facility] [place] [address] 09/21/2024 2:45 PM EDT Office Visit Pain and Spine Center at [facility] [place] [address] Trung Hoyos MD [facility] [place] [address] documented as of this encounter Visit Diagnoses Diagnosis Left sided colitis without complications Left sided ulcerative (chronic) colitis documented in this encounter Care Teams Spinner Hydraulic Relationship Specialty Start Date End Date Maximilian Fall MD [address] [facility] 1 [place] [address] PCP - General 10/01/11 02/13/21 documented as of this encounter
--- OUTSIDE RECORDS SUMMARY | 2024-07-11 11:15 | XMS_ITS | Encounter Summary ---
Author Organization [facility] [place] [address] Care Team Providers Care Solar Photovoltaic Designer Name Role Phone Maximilian Fall MD Primary Care Provider [phone] Encounter Details Date Type Department Care Team (Late st Contact Info) Description 04/26/2019 Ancillary Procedure [place] [address] Dion Barlow MD [facility] [place] [address] Social History Tobacco Use Types Packs/Day Years [...] 9:00 AM EDT Office [place] [phone] Dion Barlow MD [facility] [place] [address] 09/01/2024 9:40 AM EDT Office Visit Cardiology at [address] [place] [address] Franky Shaver MD [facility] [place] [address] 09/01/2024 11:20 AM EDT Office Visit Dermatology at [facility] [address] [place] [address] Gómez Mercer MD [facility] DR EDDIE [place] [address] 09/21/2024 2:45 PM EDT Office Visit [facility] [place] [address] Trung Hoyos MD [facility] [place] [address] documented as of this encounter Procedures Procedure Name Priority Date/Time Associated Diagnosis Comments FILM LIBRARY STORAGE ONLY CT ABDOMEN AND PELVIS Routine 04/26/2019 12:00 AM EDT documented in this encounter Results * Film Library- Storage Only CT Abdomen & Pelvis (04/26/2019 12:00 AM EDT) Narrative [facility] [place] - 04/27/2019 3:22 AM EDT This exam is auto-finalizing. It's purpose is for storage only. L Karthik Barlow MD IMG FILM LIBRARY ORD ERABLES [place], [place] documented in this encounter Visit Diagnoses Not on filedocumented in this encounter Care Teams Solar Photovoltaic Designer Relationship Specialty Start Date End Date Maximilian Fall MD [address] [place] [address] PCP - General 10/01/11 02/13/21 documented as of this encounter
--- OUTSIDE RECORDS SUMMARY | 2024-07-11 11:15 | XMS_ITS | Encounter Summary ---
[place] [address] Care Team Providers Care Business Development Manager Name Role Phone Maximilian Fall MD Primary Care Provider [phone] Encounter Details Date Type Department Care Team (Late st Contact Info) Description 01/17/2021 Telephone [place] [address] César Garcia Social History Tobacco Use Types [...] - 01/17/2021 1:33 PM EST Brian Rodriguez [id number] Diagnosis/Indication: a repeat colonoscopy in two years [...] 9:00 AM EDT Office [place] [address] Dion Barlow MD [facility] [place] [address] 09/01/2024 9:40 AM EDT Office Visit Cardiology at [address] [phone] Franky Shaver MD [facility] [place] [address] 09/01/2024 11:20 AM EDT Office Visit Dermatology at [place] [address] [place] [address] Gómez Mercer MD [facility] DR [place] [address] 09/21/2024 2:45 PM EDT Office Visit Pain and Spine Center at [facility] [place] [address] Trung Hoyos MD [facility] [place] [address] documented as of this encounter Visit Diagnoses Not on filedocumented in this encounter Care Teams Business Development Manager Relationship Specialty Start Date End Date Maximilian Fall MD [address] [place] [address] PCP - General 10/01/11 02/13/21 documented as of this encounter
--- OUTSIDE RECORDS SUMMARY | 2024-07-11 11:15 | XMS_ITS | Encounter Summary ---
Author Organization [facility] Address [facility] [place] [address] Care Team Providers Care Systems Software Designer Name Role Phone Maximilian Fall MD Primary Care Provider [phone] Encounter Details Date Type Department Care Team (Late st Contact Info) Description 02/23/2019 Telephone [place] [address] Suzanne Guillermo Social History Tobacco [...] 9:00 AM EDT Office [place] [address] Dion Barlow MD [facility] [place] [address] 09/01/2024 9:40 AM EDT Office Visit Cardiology at [address] [place] [address] Franky Shaver MD [facility] [place] [place] [address] 09/01/2024 11:20 AM EDT Office Visit Dermatology at [facility] [address] [place] [address] Gómez Mercer MD [facility] [place] [address] 09/21/2024 2:45 PM EDT Office Visit Pain and Spine Center at [facility] ([place] [address] Trung Hoyos MD [facility] [place] [address] documented as of this encounter Visit Diagnoses Not on filedocumented in this encounter Care Teams Systems Software Designer Relationship Specialty Start Date End Date Maximilian Fall MD [address] [facility] 1 [place] [address] PCP - General 10/01/11 02/13/21 documented as of this encounter
--- OUTSIDE RECORDS SUMMARY | 2024-07-11 11:15 | XMS_ITS | Encounter Summary ---
Author Organization [facility] [place] [address] Care Team Providers Care Specialist Field Engineer Name Role Phone Maximilian Fall MD Primary Care Provider [phone] Encounter Details Date Type Department Care Team (Late st Contact Info) Description 11/10/2018 Telephone [place] [address] Rachel Corral Social History Tobacco Use Types [...] 9:00 AM EDT Office [place] [address] Dion Barlow MD [facility] [place] [address] 09/01/2024 9:40 AM EDT Office Visit Cardiology at [address] [phone] Franky Shaver MD [facility] [place] [address] 09/01/2024 11:20 AM EDT Office Visit Dermatology at [address] [place] [address] Gómez Mercer MD [facility] [place] [address] 09/21/2024 2:45 PM EDT Office Visit [place] [address] Trung Hoyos MD [facility] [place] [address] documented as of this encounter Visit Diagnoses Not on filedocumented in this encounter Care Teams Specialist Field Engineer Relationship Specialty Start Date End Date Maximilian Fall MD [address] [place] [address] [place] [address] PCP - General 10/01/11 02/13/21 documented as of this encounter
--- OUTSIDE RECORDS SUMMARY | 2024-07-11 11:15 | XMS_ITS | Encounter Summary ---
[facility] [place] [address] Care Team Providers Care Environmental Engineering Professor Name Role Phone Maximilian Fall MD Primary Care Provider [phone] Reason for Visit * Reason Onset Date Comments Medication Refill 03/26/2018 Encounter Details Date Type Department Care Team (Late st Contact Info) Description 03/26/2018 Refill [place] [address] Bethany Trivedi RN Social History Tobacco Use [...] AM EDT Office Visit [place] [address] Dion Barlow MD [facility] [place] [address] 09/01/2024 9:40 AM EDT Office Visit Cardiology at [address] [place] [address] Franky Shaver MD [facility] [place] [address] 09/01/2024 11:20 AM EDT Office Visit Dermatology at [facility] [address] [place] [address] Gómez Mercer MD [facility] [place] [address] 09/21/2024 2:45 PM EDT Office Visit [facility] [place] [address] Trung Hoyos MD [facility] [address] documented as of this encounter Visit Diagnoses Not on filedocumented in this encounter Care Teams Environmental Engineering Professor Relationship Specialty Start Date End Date Maximilian Fall MD [address] [facility] 1 [place] [address] PCP - General 10/01/11 02/13/21 documented as of this encounter
--- OUTSIDE RECORDS SUMMARY | 2024-07-11 11:15 | XMS_ITS | Encounter Summary ---
Author Organization [facility] [place] [address] Care Team Providers Care Truck Body Repairer Name Role Phone Maximilian Fall MD Primary Care Provider [phone] Reason for Visit * Reason Onset Date Comments Medication Refill 12/11/2020 Encounter Details Date Type Department Care Team (Late st Contact Info) Description 12/11/2020 Refill [place] [phone] Dion Barlow MD [facility] [place] [address] Left sided colitis without complications Social History [...] 9:00 AM EDT Office Visit [place] [phone] Dion Barlow MD [facility] [place] [address] 09/01/2024 9:40 AM EDT Office Visit Cardiology at [address] [place] [address] Franky Shaver MD [facility] [place] [address] 09/01/2024 11:20 AM EDT Office Visit Dermatology at [facility] [address] [place] [address] Gómez Mercer MD [facility] [place] [address] 09/21/2024 2:45 PM EDT Office Visit [facility] [place] [address] Trung Hoyos MD [facility] [place] [address] documented as of this encounter Visit Diagnoses Diagnosis Left sided colitis without complications Left sided ulcerative (chronic) colitis documented in this encounter Care Teams Truck Body Repairer Relationship Specialty Start Date End Date Maximilian Fall MD [address] [facility] 1 [place] [address] PCP - General 10/01/11 02/13/21 documented as of this encounter
--- OUTSIDE RECORDS SUMMARY | 2024-07-11 11:15 | XMS_ITS | Encounter Summary ---
Author Organization [facility] Address [facility] [place] [address] Care Team Providers Care Retirement Administrator Name Role Phone Maximilian Fall MD Primary Care Provider [phone] Encounter Details Date Type Department Care Team (Latest Contact Info) Description 11/02/2018 1:00 PM EST Office Visit [place] [address] Marcelle Weinberg APRN [facility] [place] [address] Left sided colitis without complications Social History [...] ? Overview Note:? Colonoscopy 04/08/10 (Dr. Gomes [facility]) - inflammation only within the [...] he underwent left inguinal hernia repair at [facility] 2 weeks ago. Once he was [...] 3.66) performed by Dion Osullivan MD at [facility] ENDOSCOPY ??? PRO COLONOSCOPY, DIAGNOSTIC 11/27/2011 COLONOSCOPY, DIAGNOSTIC performed by Dion OSULLIVAN at [facility] ENDOSCOPY ??? PRO COLONOSCOPY, DIAGNOSTIC 07/13/2014 COLONOSCOPY, DIAGNOSTIC performed by Dion Osullivan MD at [facility] ENDOSCOPY ??? PRO SIGMOIDOSCOPY, DIAGNOSTIC 03/16/2012 FLEXIBLE SIGMOIDOSCOPY performed by YUDI MALLOY at [facility] ENDOSCOPY ??? UPPER GI ENDOSCOPY, EXAM 10/01/2012 UPPER GI ENDOSCOPY performed by Dion OSULLIVAN at [facility] ENDOSCOPY Social History Socioeconomic History ??? [...] 9:00 AM EDT Office Visit [place] [address] Dion Osullivan MD [facility] [place] [address] 09/01/2024 9:40 AM EDT Office Visit Cardiology at [address] [place] [place] [phone] Franky Shaver MD [facility] [place] [address] 09/01/2024 11:20 AM EDT Office Visit Dermatology at [facility] [address] [place] [address] Gómez Mercer MD [facility] [place] [address] 09/21/2024 2:45 PM EDT Office Visit [facility] [place] [phone] Trung Hoyos MD [facility] [place] [address] documented as of this encounter Procedures Procedure [...] Differential, Automated (11/02/2018 2:35 PM EST) Pathologist [facility] Neutrophil % 61.6 % [facility] Neutrophil Absolute 4.08 1.70 - 6.10 x10(3)/[facility] Lymph % 27.2 % [facility] Lymphocytes Abs 1.8 0.9 - 3.2 x10(3)/[facility] Monocyte % 6.9 % [facility] Monocyte Abs 0.5 0.3 - 0.9 x10(3)/[facility] Eos % 2.9 % [facility] Eosinophils Abs 0.2 0.0 - 0.4 x10(3)/[facility] Basophil % 0.8 % [facility] Baso Absolute 0.0 0.0 - 0.1 x10(3)/[facility] Immature Gran % 0.60 % [facility] Comment: Immature granulocytes(IG's)percentage and absolute count will include metamyelocytes, myelocytes, and promyelocytes. Blood smears from CBCs yielding IG's will be scanned manually for concordance. If this scan disagrees with the automated IG or if promyelocytes are noted, a manual differential will be performed. Immature Gran Absolute 0.04 0.00 - 0.04 x10(3)/[facility] Blood specimen (specimen) 11/02/2018 2:35 PM EST 11/02/2018 2:42 PM EST Narrative Resulting Agency Comment Spec In Lab Marcelle Weinberg GRADUATE STUDENT INSTRUCTOR HEMATOLOGY ORDERA BLES [facility] [place] [address] * (ABNORMAL) Hemogram (11/02/2018 2:35 PM EST) Pathologist [facility] [place] White Blood Cell 6.6 4.0 - 9.5 x10(3)/[facility] Red Blood Cell 4.08(L) 4.58 - 5.54 x10(6)/mc L [facility] Hemoglobin 13.1(L) 13.7 - 16.5 gm/dL [facility] Hematocrit 40.0(L) 40.5 - 48.5 % [facility] Mean Cell Volume 98.0(H) 82.9 - 93.1 fL [facility] Mean Cell Hemoglobin 32.1 27.5 - 32.1 pg [facility] Mean Cell Hemoglobin Concentration 32.8 32.0 - 35.7 gm/dL [facility] Platelet 236 145 - 357 x10(3)/[facility] RDW Standard Deviation 44.3 36.0 - 45.0 [facility] RDW coefficient of variation 12.3 11.4 - 13.8 % [facility] Mean Platelet Volume 10.6 7.6 - 12.9 [facility] NRBC% auto 0.0 % [facility] NRBC Absolute 0.000 0.000 - 0.000 x10(3)/[facility] Blood specimen (specimen) 11/02/2018 2:35 PM EST 11/02/2018 2:42 PM EST Narrative Resulting Agency Comment Spec In Lab Marcelle Weinberg GRADUATE STUDENT INSTRUCTOR HEMATOLOGY ORDERA BLES [facility] [place] [address] * (ABNORMAL) CRP, acute inflammation (11/02/2018 2:35 PM EST) [facility] C-Reactive Protein 5.0(H) <=4.9 mg/L [facility] Blood specimen (specimen) 11/02/2018 2:35 PM EST 11/02/2018 2:42 PM EST Narrative Resulting Agency Comment Spec In Lab Marclele Weinberg GRADUATE STUDENT INSTRUCTOR CHEMISTRY ORDERAB LES Performing Organization Address City/[facility]/ZIP Co de Phone Number [facility] [place] [address] * (ABNORMAL) Sedimentation rate (11/02/2018 2:35 PM EST) Sedimentation Rate Automated 27(H) 0 - 15 mm/hr [facility] Blood specimen (specimen) 11/02/2018 2:35 PM EST 11/02/2018 2:42 PM EST Narrative Resulting Agency Comment Spec In Lab Marcelle Weinberg GRADUATE STUDENT INSTRUCTOR HEMATOLOGY ORDERA BLES Performing Organization Address [facility] Co de Phone Number [facility] [place] [address] * (ABNORMAL) Comprehensive metabolic panel (non-fasting) (11/02/2018 2:35 PM EST) Glucose 87 65 - 199 mg/dL [facility] Comment:Diabetes: >=200 mg/d L plus symptoms Blood Urea Nitrogen 15 10 - 20 mg/dL [facility] Creatinine 1.03 0.80 - 1.50 mg/dL [facility] Sodium 140 135 - 145 mmol/L [facility] Potassium 4.3 3.5 - 5.0 mmol/L [facility] Comment: Please note: ??Patients with WBC >100,000 may have falsely elevated Potassium levels. ??For accurate Potassium quantification in these patients send serum separator tube (gold top) for subsequent determinations. ??Contact the Clinical Chemistry Laboratory if there are any questions. Chloride 103 98 - 107 mmol/L [facility] Carbon Dioxide 26 22 - 31 mmol/L [facility] Anion Gap 11 5 - 15 mmol/L [facility] Calcium 9.7 8.5 - 10.5 mg/dL [facility] Protein, Total 8.1(H) 6.1 - 8.0 gm/dL [facility] Albumin 4.0 3.2 - 5.2 gm/dL [facility] Aspartate Aminotransferase 12 0 - 39 unit/L [facility] Alanine Aminotransferase 14 0 - 55 unit/L [facility] Alkaline Phosphatase 73 40 - 120 unit/L [facility] Bilirubin, Total 0.4 0.2 - 1.3 mg/dL [facility] Est Glomerular Filtration Rate 73 >=60 mL/min/1. 73 m?? [facility] Comment: The eGFR was calculated using the CKD-EPI equation. As with all creatinine based estimates of kidney function, eGFR values calculated with the CKD-EPI equation are not accurate in patients with acute kidney failure, extremes of body mass or the acutely ill. http://[email or web address]/[facility] eGFR 85 >=60 mL/min/1. 73 m?? [facility] Comment: The eGFR was calculated using the CKD-EPI equation. As with all creatinine based estimates of kidney function, eGFR values calculated with the CKD-EPI equation are not accurate in patients with acute kidney failure, extremes of body mass or the acutely ill. http://[employer]/[facility] Blood specimen (specimen) 11/02/2018 2:35 PM EST 11/02/2018 2:42 PM EST Narrative Resulting Agency Comment Spec In Lab Marcelle Weinberg GRADUATE STUDENT INSTRUCTOR CHEMISTRY ORDERAB LES [facility] [place] [place] [address] documented in this encounter Visit Diagnoses Diagnosis Left sided colitis without complications Left sided ulcerative (chronic) colitis documented in this encounter Care Teams Retirement Administrator Relationship Specialty Start Date End Date Maximilian Fall MD [address] [place] [address] PCP - General 10/01/11 02/13/21 documented as of this encounter
--- OUTSIDE RECORDS SUMMARY | 2024-07-11 11:15 | XMS_ITS | Encounter Summary ---
Author Organization [facility] Address [facility] [place] [address] Care Team Providers Care Tent Finisher Name Role Phone Maximilian Fall MD Primary Care Provider [phone] Encounter Details Date Type Department Care Team (Late st Contact Info) Description 02/22/2019 Orders [place] [address] Dion Barlow MD [facility] [place] [address] Social History Tobacco Use Types Packs/Day Years [...] 9:00 AM EDT Office [place] [address] Dion Barlow MD [facility] [place] [address] 09/01/2024 9:40 AM EDT Office Visit Cardiology at [address] [place] [address] Franky Shaver MD [facility] [place] [address] 09/01/2024 11:20 AM EDT Office Visit Dermatology at [facility] [address] [place] [address] Gómez Mercer MD [facility] DR [place] [address] 09/21/2024 2:45 PM EDT Office Visit [facility] [place] [address] Trung Hoyos MD [facility] [place] [address] documented as of this encounter Visit Diagnoses Not on filedocumented in this encounter Care Teams Tent Finisher Relationship Specialty Start Date End Date Maximilian Fall MD [address] [facility] 1 [place] [address] PCP - General 10/01/11 02/13/21 documented as of this encounter
--- OUTSIDE RECORDS SUMMARY | 2024-07-11 11:15 | XMS_ITS | Encounter Summary ---
Author Organization [facility] [place] [address] Care Team Providers Care Medic Technician Name Role Phone Maximilian Fall MD Primary Care Provider [phone] Reason for Visit * Reason Comments Medication Refill Encounter Details Date Type Department Care Team (Late st Contact Info) Description 09/03/2020 Refill [place] [address] Dion Barlow MD [facility] [place] [address] Social History Tobacco Use Types Packs/Day Years [...] 9:00 AM EDT Office [place] [address] Dion Barlow MD [facility] [place] [address] 09/01/2024 9:40 AM EDT Office Visit Cardiology at [address] [place] [address] Franky Shaver MD [facility] [place] [address] 09/01/2024 11:20 AM EDT Office Visit Dermatology at [facility] [address] [place] [address] Gómez Mercer MD [facility] DR [place] [address] 09/21/2024 2:45 PM EDT Office Visit [facility] [place] [address] Trung Hoyos MD [facility] [address] documented as of this encounter Visit Diagnoses Not on filedocumented in this encounter Care Teams Medic Technician Relationship Specialty Start Date End Date Maximilian Fall MD [address] [facility] 1 [place] [address] PCP - General 10/01/11 02/13/21 documented as of this encounter
--- OUTSIDE RECORDS SUMMARY | 2024-07-11 11:15 | XMS_ITS | Encounter Summary ---
Author Organization [facility] [place] [address] Care Team Providers Care Council Member Name Role Phone Maximilian Fall MD Primary Care Provider [phone] Reason for Visit * Reason Onset Date Comments Medication Refill 05/03/2018 Encounter Details Date Type Department Care Team (Late Contact Info) Description 05/03/2018 Ref[place] [address] Bethany Trivedi, RN Social History Tobacco Use [...] 9:00 AM EDT Office [place] [address] Dion Barlow MD [facility] [place] [address] 09/01/2024 9:40 AM EDT Office Visit Cardiology at [address] [phone] Franky Shaver MD [facility] [place] [address] 09/01/2024 11:20 AM EDT Office Visit Dermatology at [facility] [address] [place] [address] Gómez Mercer MD [facility] DR EDDIE [place] [address] 09/21/2024 2:45 PM EDT Office Visit Pain and Spine Center at [facility] [place] [address] Trung Hoyos MD [facility] [place] [address] documented as of this encounter Visit Diagnoses Not on filedocumented in this encounter Care Teams Council Member Relationship Specialty Start Date End Date Maximilian Fall MD [address] [place] [address] PCP - General 10/01/11 02/13/21 documented as of this encounter
--- OUTSIDE RECORDS SUMMARY | 2024-07-11 11:15 | XMS_ITS | Encounter Summary ---
Author Organization [facility] [place] [address] Care Team Providers Care Cell Pourer Name Role Phone Maximilian Fall MD Primary Care Provider [phone] Encounter Details Date Type Department Care Team (Late st Contact Info) Description 11/02/2018 Telephone [place] [address] Marcelle Weinberg, AIR SAMPLER [facility] [place] [address] Social History Tobacco Use Types Packs/Day Years [...] Notes * Telephone Encounter - Marcelle Weinberg, AIR SAMPLER - 11/02/2018 5:27 PM EST I called [...] 9:00 AM EDT Office Visit [place] [address] Dion Barlow MD [facility] [place] [address] 09/01/2024 9:40 AM EDT Office Visit Cardiology at [address] [address] Franky Shaver MD [facility] [place] [address] 09/01/2024 11:20 AM EDT Office Visit Dermatology at [facility] [address] [place] [address] Gómez Mercer MD [facility] [place] [address] 09/21/2024 2:45 PM EDT Office Visit [facility] [place] [address] Trung Hoyos MD [facility] [place] [address] documented as of this encounter Visit Diagnoses Not on filedocumented in this encounter Care Teams Cell Pourer Relationship Specialty Start Date End Date Maximilian Fall MD [address] [place] [address] PCP - General 10/01/11 02/13/21 documented as of this encounter
--- OUTSIDE RECORDS SUMMARY | 2024-07-11 11:16 | XMS_ITS | Encounter Summary ---
Author Organization [facility] Address [facility] [place] [address] Care Team Providers Care Online Tutor Name Role Phone Maximilian Fall MD Primary Care Provider [phone] Encounter Details Date Type Department Care Team (Latest Contact Info) Description 02/12/2017 10:14 AM EDT - 02/12/2017 1:50 PM EDT Hospital Encounter [place] [address] Dion Barlow MD [facility] [place] [address] Discharge Disposition: Home Social History Tobacco Use [...] - 02/12/2017 12:37 PM EDT Please call [phone] before 8pm with problems, questions or concerns, after 5pm call the Hospital at [phone] and ask to speak to the Music Publisher outside production inspector and the hydro excavation operator will contact that person for you. [...] sent through Care Everywhere. * COLONOSCOPY: POST-OP (CAMEROONIAN) documented in this encounter Medications at Time [...] Take 80 mg by mouth daily. 05/11/2017 omeprazole (PRILOSEC) 20 mg capsule Take 40 mg by mouth daily. 07/04/2024 fluticasone (FLOVENT) 110 mcg/Actuation inhaler Inhale 2 [...] 9:00 AM EDT Office [place] [address] Dion Barlow MD [facility] [place] [address] 09/01/2024 9:40 AM EDT Office Visit Cardiology at [address] [place] [address] Franky Shaver MD [facility] [place] [address] 09/01/2024 11:20 AM EDT Office Visit [facility] at [facility] [address] [place] [address] Gómez Mercer MD [facility] DR EDDIE [place] [address] 09/21/2024 2:45 PM EDT Office Visit [facility] [place] [address] Trung Hoyos MD [facility] [place] [address] documented as of this encounter Procedures Procedure [...] PM EDT 02/12/2017 12:16 PM EDT Narrative [facility] - 02/12/2017 12:16 PM EDT Specimen requisition ordered. ??Separate Pathology report to follow L Karthik Barlow MD PATHOLOGY/[place] [address] * Specimen to Pathology (surgical or derm) (02/12/2017 12:16 PM EDT) AP Specimen 02/12/2017 12:1 6 PM EDT 02/12/2017 12:16 PM EDT Narrative [facility] - 02/12/2017 12:16 PM EDT Specimen requisition ordered. ??Separate Pathology report to follow L Karthik Barlow MD PATHOLOGY/[place] [address] * Specimen to Pathology (surgical or derm) (02/12/2017 12:16 PM EDT) AP Specimen 02/12/2017 12:1 6 PM EDT 02/12/2017 12:16 PM EDT Narrative [facility] - 02/12/2017 12:16 PM EDT Specimen requisition ordered. ??Separate Pathology report to follow L Karthik Barlow MD PATHOLOGY/[place] [address] * Specimen to Pathology (surgical or derm) (02/12/2017 12:16 PM EDT) AP Specimen 02/12/2017 12:1 6 PM EDT 02/12/2017 12:16 PM EDT Narrative [facility] - 02/12/2017 12:16 PM EDT Specimen requisition ordered. ??Separate Pathology report to follow L Karthik Barlow MD PATHOLOGY/CYTOLOGY Ozzie MIKE [facility] [place] [address] * Surgical Pathology Report (02/12/2017 12:15 PM EDT) Final Diagnosis [id number] ?Location: 4T; EA07; A The signing pathologist [...] ing: (T2) ??ejr 02/13/2017 4:23 PM EDT [facility] GI Biopsy 02/12/2017 12:1 5 PM EDT 02/12/2017 12:15 PM EDT GI Biopsy 02/12/2017 12:1 5 PM EDT 02/12/2017 12:15 PM EDT GI Biopsy 02/12/2017 12:1 5 PM EDT 02/12/2017 12:15 PM EDT GI Biopsy 02/12/2017 12:1 5 PM EDT 02/12/2017 12:15 PM EDT L Karthik Barlow MD PATHOLOGY/CYTOLOGY O CEE [facility] [place] [address] * COLONOSCOPY (02/12/2017 11:40 AM EDT) COLONOSCOPY [facility] Endoscopy ___ Procedure Date: 02/12/2017 11:40 AM ? Patient Name: Brian Rodriguez ? Date of : 1950 ? Age: 66 ? Order #: [id number] ? Instrument Name: [id number] ? ___ Procedure: ? Colonoscopy Indications: ? High risk colon cancer surveillance: ? Ulcerative colitis Patient Profile: ? This is a 66 year old male. This ? patient has left-sided ulcerative ? colitis on sulfasalazine and ? Cortifoam and is experiencing mild ? symptoms. Providers: ? Davina Barlow MD, Vandana Love ? Mike, RONY, Sonal [facility], ? Inseam Leveler Referring MD: ?Maximilian Fall MD Medicines: ? [...] preparation was evaluated using ? the BBPS ([place] Bowel Preparation ? Scale) with scores of: [...] Glucose, POC 132 65 - 199 mg/dL [facility] Comment: Supplemental ranges: <140 mg/dL before meals <180 mg/dL all other times of the day Blood specimen (specimen) 02/12/2017 10:29 AM EDT 02/12/2017 10:29 AM EDT Dion Barlow MD POINT OF CARE TEST O RDMELISSA Performing Organization Address City/[facility]/ZIP Co de Phone Number [facility] [place] [address] documented in this encounter Visit Diagnoses Not [...] RN) documented in this encounter Care Teams Online Tutor Relationship Specialty Start Date End Date Maximilian Fall MD [address] [place] [address] PCP - General 10/01/11 02/13/21 documented as of this encounter
--- OUTSIDE RECORDS SUMMARY | 2024-07-11 11:16 | XMS_ITS | Encounter Summary ---
[place] [address] Care Team Providers Care Web Systems Developer Name Role Phone Maximilian Fall MD Primary Care Provider [phone] Encounter Details Date Type Department Care Team (Late st Contact Info) Description 03/13/2016 - 03/13/2016 11:59 PM EDT Hospital Encounter [place] [address] [place] Thomas Temporary Pain Discharge Disposition: Home [...] by mouth daily. 90 tablet 3 11/22/2012 hydrocortisone (CORTIFOAM) 10 % (80 mg) FoamIndications:Pain [...] 9:00 AM EDT Office Visit [place] [phone] Dion Barlow MD [facility] [place] [address] 09/01/2024 9:40 AM EDT Office Visit Cardiology at [address] [phone] Franky Shaver MD [facility] [place] [address] 09/01/2024 11:20 AM EDT Office Visit Dermatology at [address] [address] Gómez Mercer MD [facility] DR EDDIE SANCHEZ[place] [address] 09/21/2024 2:45 PM EDT Office Visit [facility] [place] [phone] Trung Hoyos MD [facility] [place] [address] documented as of this encounter Procedures Procedure Name Priority Date/Time Associated Diagnosis Comments FILM LIBRARY STORAGE ONLY CT ABDOMEN AND PELVIS Routine 03/13/2016 12:00 AM EDT Pain documented in this encounter Results * Film Library- Storage Only CT Abdomen & Pelvis (03/13/2016 12:00 AM EDT) Narrative [facility] - 03/22/2016 8:20 AM EDT This exam is for storage only and is auto-finalizing. Dr Le[facility] FILM LIBRARY ORD ERABLES [place], [place] documented in this encounter Visit Diagnoses Diagnosis Pain Generalized pain documented in this encounter Care Teams Web Systems Developer Relationship Specialty Start Date End Date Maximilian Fall MD [address] [place] [address] PCP - General 10/01/11 02/13/21 documented as of this encounter
--- OUTSIDE RECORDS SUMMARY | 2024-07-11 11:16 | XMS_ITS | Encounter Summary ---
Author Organization [facility] Address [facility] [place] [address] Care Team Providers Care High [employer] Computer Science Teacher Name Role Phone Maximilian Fall MD Primary Care Provider [phone] Reason for Visit * Reason Comments Follow-up Encounter Details Date Type Department Care Team (Late st Contact Info) Description 12/04/2015 3:30 PM EST Office [place] [address] Marcelle Weinberg, JAZMINE [facility] [place] [address] Other ulcerative colitis Social History Tobacco Use [...] * Patient Instructions* Marcelle Weinberg APRN - 12/04/2015 3:32 PM EST - Cortifoam enema every night x 2 weeks; then once every other night x 2 weeks; 3x/ week x 2 weeks then off. - stay on sulfasalazine 4 tabs twice daily - folic acid 1 tab daily documented in this encounter Progress Notes * Marcelle Weinberg, JAZMINE - 12/04/2015 3:09 PM EST Patient Active Problem List Diagnosis ??? Ulcerative colitis Overview Note: ?? Colonoscopy 04/08/10 (Dr. Gomes [facility]) - inflammation only within the rectum and sigmoid; extent of the exam was to the hepatic flexure; biopsies proximal to the sigmoid nl ?? Repeat exam 11/27/11 ([facility]): mildly active colitis in [...] to move his bowels. Still formed stool. [place] better after defecation. Eating well. Weight stable. [...] COLONOSCOPY, DIAGNOSTIC performed by Dion OSULLIVAN at [facility] ??? Pro sigmoidoscopy, diagnostic 03/16/2012 FLEXIBLE SIGMOIDOSCOPY performed by YUDI MALLOY at [facility] ??? Upper gi endoscopy, exam 10/01/2012 UPPER GI ENDOSCOPY performed by Dion OSULLIVAN at [facility] ??? Pro colonoscopy, diagnostic 07/13/2014 COLONOSCOPY, DIAGNOSTIC performed by Dion Osullivan MD at [facility] History Social History ??? Marital Status: [...] UA Latest Range: Clear Hazy (A) Spec [place] UA Latest Range: 1.002-1.030 1.020 pH UA [...] 9:00 AM EDT Office [place] [phone] [facility] [place] [address] 09/01/2024 9:40 AM EDT Office Visit Cardiology at [address] [address] [facility] [place] [address] 09/01/2024 11:20 AM EDT Office Visit Dermatology at [address] [address]ómez Mer[address] [facility] [place] [address] 09/21/2024 2:45 PM EDT Office Visit [place] [phone] [facility] [place] [address] documented as of this encounter Visit Diagnoses Diagnosis Other ulcerative colitis documented in this encounter Care Teams [employer] Computer Science Teacher Relationship Specialty Start Date End Date Maximilian Fall MD [address] [place] [address] PCP - General 10/01/11 02/13/21 documented as of this encounter
--- OUTSIDE RECORDS SUMMARY | 2024-07-11 11:16 | XMS_ITS | Encounter Summary ---
[place] [address] Care Team Providers Care Nuclear Spectroscopist Name Role Phone Maximilian Fall MD Primary Care Provider [phone] Encounter Details Date Type Department Care Team (Latest Contact Info) Description 11/06/2015 10:15 AM EST Laboratory Appointment Lab [address] [place] [phone] Ulcerative colitis, without complications; Diarrhea; Pain in [...] 9:00 AM EDT Office [place] [address] Dion Barlow MD [facility] [place] [address] 09/01/2024 9:40 AM EDT Office Visit Cardiology at [address] [place] [phone] Franky Shaver MD [facility] [place] [address] 09/01/2024 11:20 AM EDT Office Visit Dermatology at [facility] [address] [place] [phone] Gómez Mercer MD [facility] [place] [address] 09/21/2024 2:45 PM EDT Office Visit [facility] [place] [phone] Trung Hoyos MD [facility] [place] [address] documented as of this encounter Procedures Procedure Name Priority Date/Time Associated Diagnosis Comments C. DIFFICILE SCREEN Routine 11/06/2015 2 :30 PM EST Pain in right hip Bilateral low back pain, with sciatica presence unspecified Abdominal pain, unspecified abdominal location Chronic ulcerative enterocolitis, unspecified complication STOOL CULTURE SCREEN ([facility]/CGP/APD/[facility]H) Routine 11/06/2015 1:49 PM EST Pain in [...] ulcerative enterocolitis, unspecified complication CRYPTOSPORIDIUM OOCYST ANTIGEN ([facility]/CGP/APD) Routine 11/06/2015 1:09 PM EST Pain in right hip Bilateral low back pain, with sciatica presence unspecified Abdominal pain, unspecified abdominal location Chronic ulcerative enterocolitis, unspecified complication GIARDIA/CRYPTOSPORIDIUM ANTIGENS ([facility]/CGP/APD/NLH) Routine 11/06/2015 1:09 PM EST Pain in right hip Bilateral low back pain, with sciatica presence unspecified Abdominal pain, unspecified abdominal location Chronic ulcerative enterocolitis, unspecified complication GIARDIA ANTIGEN ([facility]/CGP/APD/NLH) Routine 11/06/2015 1:09 PM EST Pain in [...] PM EST) C Diff Interp Negative Negative [facility] Stool specimen (specimen) 11/06/2015 2:30 PM EST 11/06/2015 2:30 PM EST Narrative Resulting Agency Comment Spec In Lab L Karthik Barlow MD MICROBIOLOGY - GENER AL ORDERABLES Performing Organization Address [facility] Phone Number [facility] * Shiga Toxin Detection (11/06/2015 1:49 PM EST) Pathologist [facility] Shiga Toxin Assay EIA Negative for Shiga Toxin 1 EIA Negative for Shiga Toxin 2 [facility] Stool specimen (specimen) 11/06/2015 1:49 PM EST 11/06/2015 2:33 PM EST Narrative Resulting Agency Comment Spec In Lab L Karthik Barlow MD MICROBIOLOGY - GENER AL ORDERABLES Performing Organization Address [facility] Phone Number [facility] * Campylobacter Antigen (11/06/2015 1:49 PM EST) Pathologist [facility] Campylobacter Ag Immunoassay Negative for Campylobacter Antigen [facility] Stool specimen (specimen) 11/06/2015 1:49 PM EST 11/06/2015 2:33 PM EST Narrative Resulting Agency Comment Spec In Lab L Karthik Barlow MD MICROBIOLOGY - GENER AL ORDERABLES Performing Organization Address [facility] de Phone Number [facility] * Stool culture (11/06/2015 1:49 PM EST) Stool Culture No enteric pathogens isolated [facility] Stool specimen (specimen) 11/06/2015 1:49 PM EST 11/06/2015 2:33 PM EST Narrative Resulting Agency Comment Spec In Lab L Karthik Barlow MD MICROBIOLOGY - GENER AL ORDERABLES Performing Organization Address [facility] Phone Number [facility] * Cryptosporidium Oocyst Antigen (11/06/2015 1:09 PM EST) Cryptosporidium Antigen Negative Negative [facility] Stool specimen (specimen) 11/06/2015 1:09 PM EST 11/06/2015 2:28 PM EST Narrative Resulting Agency Comment Spec In Lab L Karthik Barlow MD MICROBIOLOGY - GENER AL ORDERABLES Performing Organization Address [facility] Phone Number [facility] * Giardia antigen (11/06/2015 1:09 PM EST) Giardia Antigen Negative Negative [facility] Comment:Examination for othe r intestinal parasites requires foreign travel history. Stool specimen (specimen) 11/06/2015 1:09 PM EST 11/06/2015 2:28 PM EST Narrative Resulting Agency Comment Spec In Lab L Karthik Barlow MD MICROBIOLOGY - GENER AL ORDERABLES Performing Organization Address [facility] Phone Number [facility] * (ABNORMAL) Urine culture (11/06/2015 1:00 PM EST) Urine Culture 50,000-99,000 cfu/ml Escherichia coli(A) [facility] Organism Escherichia coli(A) [facility] Urine specimen obtained by clean catch procedure [...] Barlow MD MICROBIOLOGY - GENER AL ORDERABLES [facility] [employer] PangeaIUM * (ABNORMAL) Urinalysis with reflex Culture (11/06/2015 [...] Urine Dipstick Hazy(A) Clear CERNER MILLENNIUM Specific [place] Urine Automated 1.020 1.002 - 1.030 CERNER [...] HEMATOLOGY ORDERABLE S CERGIOVANNI ORDOÑEZENNIUM * (ABNORMAL) Sedimentation rate (11/06/2015 10:24 AM EST) Sedimentation Rate Automated 22(H) 0 - 15 mm/hr CERNER MILLENNIUM Blood specimen (specimen) 11/06/2015 10:24 AM EST 11/06/2015 10:28 AM EST Narrative Resulting Agency Comment Spec In Lab L Karthik Barlow MD HEMATOLOGY ORDERABLE S CERNER TIAGOENNIUM * (ABNORMAL) Comprehensive metabolic panel (non-fasting) (11/06/2015 10:24 AM EST) [facility] Glucose 81 65 - 199 mg/dL CERNER MILLENNIUM Comment:Diabetes: >=200 mg/d L plus symptoms Blood Urea Nitrogen 14 10 - 20 mg/dL CERNER MILLENNIUM Creatinine 1.15 0.80 - 1.50 mg/dL CERNER MILLENNIUM Comment: Please note that the pediatric reference intervals supplied above were not validated at [facility]. Results from pediatric patients should be interpreted [...] the following links into your internet browser. [email or web address] Blood specimen (specimen) 11/06/2015 10:24 AM EST 11/06/2015 10:28 AM EST Narrative Resulting Agency Comment Spec In Lab Dion Barlow MD CHEMISTRY ORDERABLES Performing Organization Address [facility] de Phone Number DURGA ORDOÑEZXenex Disinfection ServicesATRIUM HEALTH * High Sensitivity CRP (11/06/2015 10:24 AM EST) C-Reactive Protein High Sensitivity 7.9 mg/L [facility] Comment: Interpretations: 1) For accurate cardiac [...] Barlow MD CHEMISTRY ORDERABLES Performing Organization Address [facility] de Phone Number DURGA FREDERICK documented in this encounter Visit Diagnoses Diagnosis Ulcerative colitis, without complications Diarrhea Pain in right hip Pain in joint, pelvic region and thigh Bilateral low back pain, with sciatica presence unspecified Abdominal pain, unspecified abdominal location Chronic ulcerative enterocolitis, unspecified complication documented in this encounter Care Teams Nuclear Spectroscopist Relationship Specialty Start Date End Date Maximilian Fall MD [address] [place] [address] PCP - General 10/01/11 02/13/21 documented as of this encounter
--- OUTSIDE RECORDS SUMMARY | 2024-07-11 11:16 | XMS_ITS | Encounter Summary ---
Author Organization [facility], [facility] Address [facility] [place] [address] Care Team Providers Care Career Technical Supervisor Name Role Phone Maximilian Fall MD Primary Care Provider [phone] Reason for Visit * Reason Comments Follow-up Encounter Details Date Type Department Care Team (Late st Contact Info) Description 05/11/2017 4:00 PM EDT Office [place] [address] Marcelle Weinberg, JAZMINE [facility] [place] [address] Ulcerative colitis without complications, unspecified location Social [...] ? Colonoscopy 04/08/10 ([facility] 3.66) performed by Dion Osullivan MD at [facility] ENDOSCOPY ??? PRO COLONOSCOPY, DIAGNOSTIC 11/27/2011 COLONOSCOPY, DIAGNOSTIC performed by Dion OSULLIVAN at [facility] ENDOSCOPY ??? PRO COLONOSCOPY, DIAGNOSTIC 07/13/2014 COLONOSCOPY, DIAGNOSTIC performed by Dion Osullivan MD at [facility] ENDOSCOPY ??? PRO SIGMOIDOSCOPY, DIAGNOSTIC 03/16/2012 FLEXIBLE SIGMOIDOSCOPY performed by YUDI MALLOY at [facility] ENDOSCOPY ??? UPPER GI ENDOSCOPY, EXAM 10/01/2012 UPPER GI ENDOSCOPY performed by Dion OSULLIVAN at [facility] ENDOSCOPY Social History Social History [...] 1140 ?? Resulting lab: [facility] ?? Value: [facility] Endoscopy Procedure Date: 02/12/2017 11:40 AM ? Patient Name: Brian Rodriguez ? Date of : 1950 ? Age: 66 ? Order #: [id number] ? Instrument Name: [id number] ? Procedure: ? Colonoscopy Indications: ? High risk colon cancer surveillance: ?Ulcerative colitis Patient Profile: ? This is a 66 year old male. This ?patient has left-sided ulcerative ?colitis on sulfasalazine and ?Cortifoam and is experiencing mild ?symptoms. Providers: ? L. Karthik Osullivan MD, Vandana Love ?RONY Mckeon, Sonal Segura, ?[place] Referring MD: ?Maximilian Fall MD Medicines: ? [...] ?bowel preparation was evaluated using ?the BBPS (Davilla Bowel Preparation ?Scale) with scores of: Right [...] to ascending colon. Recommendation: ?- Recommend nightly Cortifoa for two ?weeks, then every other night [...] 9:00 AM EDT Office [place] [address] Dion Osullivan MD [facility] [place] [address] 09/01/2024 9:40 AM EDT Office Visit Cardiology at [address] [phone] Franky Shaver MD [facility] [place] [address] 09/01/2024 11:20 AM EDT Office Visit Dermatology at [facility] [address] [place] [address] Gómez Mercer MD [facility] DR EDDIE [place] [address] 09/21/2024 2:45 PM EDT Office Visit Pain and Spine Center at [facility] [place] [phone] Trung Hoyos MD [facility] [place] [address] documented as of this encounter Procedures Procedure [...] 4:21 PM EDT) Neutrophil % 63.1 % [facility] Neutrophil Absolute 4.76 1.70 - 6.10 x10(3)/[facility] Lymph % 25.0 % [facility] Lymphocytes Abs 1.9 0.9 - 3.2 x10(3)/[facility] Monocyte % 7.6 % [facility] Monocyte Abs 0.6 0.3 - 0.9 x10(3)/[facility] Eos % 3.2 % [facility] Eosinophils Abs 0.2 0.0 - 0.4 x10(3)/[facility] Basophil % 0.7 % [facility] Baso Absolute 0.0 0.0 - 0.1 x10(3)/[facility] Immature Gran % 0.40 % [facility] Comment: Immature granulocytes(IG's)percentage and absolute count will include metamyelocytes, myelocytes, and promyelocytes. Blood smears from CBCs yielding IG's will be scanned manually for concordance. If this scan disagrees with the automated IG or if promyelocytes are noted, a manual differential will be performed. Immature Gran Absolute 0.03 0.00 - 0.04 x10(3)/[facility] Blood specimen (specimen) 05/11/2017 4:21 PM EDT 05/11/2017 4:29 PM EDT Narrative Resulting Agency Comment Spec In Lab Marcelle Weinberg APRN HEMATOLOGY ORDERA BLES [facility] [place] [address] * (ABNORMAL) Hemogram (05/11/2017 4:21 PM EDT) White Blood Cell 7.5 4.0 - 9.5 x10(3)/mc L [facility] Red Blood Cell 3.98(L) 4.58 - 5.54 x10(6)/ L [facility] Hemoglobin 13.1(L) 13.7 - 16.5 gm/dL [facility] Hematocrit 39.4(L) 40.5 - 48.5 % [facility] Mean Cell Volume 99.0(H) 82.9 - 93.1 fL [facility] Mean Cell Hemoglobin 32.9(H) 27.5 - 32.1 pg [facility] Mean Cell Hemoglobin Concentration 33.2 32.0 - 35.7 gm/dL [facility] Platelet 220 145 - 357 x10(3)/mc L [facility] RDW Standard Deviation 44.6 36.0 - 45.0 fL [facility] RDW coefficient of variation 12.3 11.4 - 13.8 % [facility] Mean Platelet Volume 11.1 7.6 - 12.9 fL [facility] NRBC% auto 0.0 % [facility] NRBC Absolute 0.000 0.000 - 0.000 x10(3)/mc L [facility] Blood specimen (specimen) 05/11/2017 4:21 PM EDT 05/11/2017 4:29 PM EDT Narrative Resulting Agency Comment Spec In Lab Marcelle Weinberg THERMO CEMENTING FOLDER OPERATOR HEMATOLOGY ORDERA BLES [facility] [place] [address] * CRP, acute inflammation (05/11/2017 4:21 PM EDT) [facility] C-Reactive Protein 2.3 <=4.9 mg/L [facility] Blood specimen (specimen) 05/11/2017 4:21 PM EDT 05/11/2017 4:29 PM EDT Narrative Resulting Agency Comment Spec In Lab Marcelle Weinberg THERMO CEMENTING FOLDER OPERATOR CHEMISTRY ORDERAB LES [facility] [place] [address] * (ABNORMAL) Sedimentation rate (05/11/2017 4:21 PM EDT) Sedimentation Rate Automated 19(H) 0 - 15 mm/hr [facility] Blood specimen (specimen) 05/11/2017 4:21 PM EDT 05/11/2017 4:29 PM EDT Narrative Resulting Agency Comment Spec In Lab Marcelle Weinberg THERMO CEMENTING FOLDER OPERATOR HEMATOLOGY ORDERA BLES [facility] [place] [address] * (ABNORMAL) CMP w/fasting Glucose (05/11/2017 4:21 PM EDT) Glucose Fasting 91 65 - 99 mg/dL [facility] Comment: ?Fasting* Glucose Interpretive Criteria [...] of Diabetes Mellitus, Position Statement from the [place] [employer]. ??Diabetes Care, Volume 33, Supplement 1, Nov 2009 Blood Urea Nitrogen 20 10 - 20 mg/dL [facility] Creatinine 1.17 0.80 - 1.50 mg/dL [facility] Comment: Please note that the pediatric reference intervals supplied above were not validated at [facility]. Results from pediatric patients should be interpreted in conjunction to the patient's age, height and muscle mass. Sodium 143 135 - 145 mmol/L [facility] Potassium 4.9 3.5 - 5.0 mmol/L [facility] Comment: Please note: ??Patients with WBC >100,000 may have falsely elevated Potassium levels. ??For accurate Potassium quantification in these patients send serum separator tube (gold top) for subsequent determinations. ??Contact the Clinical Chemistry Laboratory if there are any questions. Chloride 103 98 - 107 mmol/L [facility] Carbon Dioxide 26 22 - 31 mmol/L [facility] Anion Gap 14 5 - 15 mmol/L [facility] Calcium 9.9 8.5 - 10.5 mg/dL [facility] Protein, Total 8.2(H) 6.1 - 8.0 gm/dL [facility] Albumin 4.3 3.2 - 5.2 gm/dL [facility] Aspartate Aminotransferase 13 0 - 39 unit/L [facility] Alanine Aminotransferase 21 0 - 55 unit/L [facility] Alkaline Phosphatase 58 40 - 120 unit/L [facility] Bilirubin, Total 0.3 0.2 - 1.3 mg/dL [facility] Bilirubin, Direct 0.1 0.0 - 0.3 mg/dL [facility] Est Glomerular Filtration Rate >60 >=60 [facility] Comment: This estimated GFR (eGFR) [...] the following links into your internet browser. [email or web address] Blood specimen (specimen) 05/11/2017 4:21 PM EDT 05/11/2017 4:29 PM EDT Narrative Resulting Agency Comment Spec In Lab Marcelle Weinberg THERMO CEMENTING FOLDER OPERATOR CHEMISTRY ORDERAB LES [facility] [place] [address] documented in this encounter Visit Diagnoses Diagnosis Ulcerative colitis without complications, unspecified location documented in this encounter Care Teams Career Technical Supervisor Relationship Specialty Start Date End Date Maximilian Fall MD [address] [place] [address] PCP - General 10/01/11 02/13/21 documented as of this encounter
--- OUTSIDE RECORDS SUMMARY | 2024-07-11 11:16 | XMS_ITS | Encounter Summary ---
Author Organization [facility] [place] [address] Care Team Providers Care Supervisor Instrument Maintenance Name Role Phone Maximilian Fall MD Primary Care Provider Encounter Details Date Type Department Care Team (Late st Contact Info) Description 09/21/2015 Telephone [place] [address] Marcelle Weinberg, WEFT STRAIGHTENER [facility] [place] [address] Social History Tobacco Use Types Packs/Day Years [...] 9:00 AM EDT Office [place] [address] Dion Barlow MD [facility] [address] 09/01/2024 9:40 AM EDT Office Visit Cardiology at [address] [address] Franky Shaver MD [facility] [place] [address] 09/01/2024 11:20 AM EDT Office Visit Dermatology at [facility] [address] [place] [phone] Gómez Mercer MD [facility] DR [place] [address] 09/21/2024 2:45 PM EDT Office Visit Pain and Spine Center at [facility] [place] [address] Trung Hoyos MD [facility] [place] [address] documented as of this encounter Visit Diagnoses Not on filedocumented in this encounter Care Teams Supervisor Instrument Maintenance Relationship Specialty Start Date End Date Maximilian Fall MD [address] [place] [address] PCP - General 10/01/11 02/13/21 documented as of this encounter
--- OUTSIDE RECORDS SUMMARY | 2024-07-11 11:16 | XMS_ITS | Encounter Summary ---
Author Organization [facility] Address [place] [id number] Care Team Providers Care Technician Telecommunication Systems Name Role Phone Maximilian Fall MD Primary Care Provider [phone] Reason for Referral * Diagnostic Test (Routine) - Closed Specialty Diagnoses / Procedures Referred By Contac t Referred To Contact Radiology Diagnoses Postoperative wound abscess, initial encounter Procedures CT Retroperitoneal Abscess Drain Minnie Johnson MD [facility] [place] [address] [facility] [place] [address] Referral ID Status Reason Start Date Expiration Date V isits Requested Visits Authorized [id number] Closed Specialty Service Requested 03/22/2016 03/22/2017 1 1 Reason for Visit * Diagnostic Test (Routine) - Closed Specialty Diagnoses / Procedures Referred By Contac t Referred To Contact Radiology Diagnoses Postoperative wound abscess, initial encounter Procedures CT Retroperitoneal Abscess Drain Minnie Johnson MD [facility] [place] [address] [facility] [place] [address] Referral ID Status Reason Start Date Expiration Date V isits Requested Visits Authorized [id number] Closed Specialty Service Requested 03/22/2016 03/22/2017 1 1 Encounter Details Date Type Department Care Team (Latest Contact Info) Description 03/22/2016 10:40 AM EDT - 03/22/2016 11:59 PM EDT Hospital [place] [address] Shireen Hurtado MD [facility] [place] [address] Postoperative wound abscess, initial encounter Discharge Disposition: [...] is during regular office hours, please call [phone]. If it is after regular office hours, or on weekends or holidays, please call [phone] and ask to speak to the Animal Laboratory Technician medical receptionist medical assistant for Interventional Radiology. You have received medication [...] pain several days post-op. He presented to [facility] ED and underwent a CT scan with findings consistent with RLQ abscess. We have been consulted for CT guided abscess drain placement. The patient has been admitted to [facility] and will be transferred back to [facility] following the procedure. Addendum: The patient's history [...] visible) Minnie Johnson MD Radiology, PGY-2 Pager [phone] * Danyell Doyle RN - 03/22/2016 10:29 AM EDT [facility] DATAB[facility] Name: NAYA RODRIGUEZ Date of : 1950 AGE 65 y.o. Address: [address] [place] [phone] (home) Mobile: Telephone Information: Referring Provider: Minnie [...] COLONOSCOPY, DIAGNOSTIC performed by Dion OSULLIVAN at [facility] ENDOSCOPY ??? Pro sigmoidoscopy, diagnostic 03/16/2012 FLEXIBLE SIGMOIDOSCOPY performed by YUDI MALLOY at [facility] ENDOSCOPY ??? Upper gi endoscopy, exam 10/01/2012 UPPER GI ENDOSCOPY performed by Dion OSULLIVAN at [facility] ENDOSCOPY ??? Pro colonoscopy, diagnostic 07/13/2014 COLONOSCOPY, DIAGNOSTIC performed by Dion Osullivan MD at [facility] ENDOSCOPY Date/Procedure Med's given/comments No previous [...] CT-guided RLQ drainage catheter placement (acc # [id number]) Indication : 65 y.o. male with PMHx significant for asthma, diabetes, and ulcerative colitis who isstatus post laparoscopic appendectomy on 03/13/2016 who noted RLQ pain several days post-op. He presented to [facility] ED and underwent a CT scan with findings consistent with RLQ abscess. We have been consulted for CT guided abscess drain placement. The patient has beenadmitted to [facility] and will be transferred back to [facility] following the procedure. . Technique: After discussing [...] 9:00 AM EDT Office [place] [address] Dion Osullivan MD [facility] [place] [address] 09/01/2024 9:40 AM EDT Office Visit Cardiology at [address] [place] [address] Franky Shaver MD [facility] [address] 09/01/2024 11:20 AM EDT Office Visit Dermatology at [facility] [address] [place] [address] Gómez Mercer MD [facility] [address] EDDIE [place] [address] 09/21/2024 2:45 PM EDT Office Visit Pain and Spine Center at [facility] [place] [address] Trung Hoyos MD [facility] [place] [address] documented as of this encounter Procedures Procedure [...] CT-guided RLQ?? drainage catheter placement (ACC # [id number]) Indication : 65 y.o. male with PMHx significant for asthma, diabetes, and ulcerative colitis who is status post laparoscopic appendectomy on 03/13/2016 who noted RLQ pain several days post-op. He presented to [facility] ED and underwent a CT scan with findings consistent with RLQ abscess. We have been consulted for CT guided abscess drain placement. The patient has been admitted to [facility] and will be transferred back to [...] 1% lidocaine administered SQ. Shireen Hurtado MD G CT ORDERABLES * Anaerobic Culture (03/22/2016 10:54 AM EDT) Anaerobic Culture No anaerobic organisms isolated [facility] Specimen from abscess (specimen) [place] / Unknown 03/22/2016 10:54 AM EDT 03/22/2016 12:52 PM EDT Comment:RLQ PAIN SEVERAL DAY S POST-OP. HE PRESENTED TO [facility] ED AND UNDERWENT A CT SCAN WITH FINDINGS CONSISTENT WITH RLQ ABSCESS. S/P APPY. Narrative Resulting Agency Comment Spec In Lab Shireen Hurtado MD MICROBIOLOGY - GENER AL ORDERABLES Performing Organization Address City/[facility]/ZIP Co de Phone Number [facility] [place] [address] * (ABNORMAL) Wound Aspirate/Abscess Culture (03/22/2016 10:54 AM EDT) Abscess/Wound Aspirate Culture Many Escherichia coli(A) [facility] Gram Stain Many White Blood Cells seen Many Gram Negative Rods seen (A) [facility] Organism Escherichia coli(A) [facility] Organism Gram Negative Rods(A) [facility] Specimen from abscess (specimen) [place] / Unknown 03/22/2016 10:54 AM EDT 03/22/2016 12:52 PM EDT Comment:RLQ PAIN SEVERAL DAY S POST-OP. HE PRESENTED TO [facility] ED AND UNDERWENT A CT SCAN [...] - GENER AL ORDERABLES Performing Organization Address [facility]/ZIP Co de Phone Number [facility] [place] [address] documented in this encounter Visit Diagnoses Diagnosis [...] mL/hr documented in this encounter Care Teams Technician Telecommunication Systems Relationship Specialty Start Date End Date Maximilian Fall MD [address] [facility] [place] [address] PCP - General 10/01/11 02/13/21 documented as of this encounter
--- OUTSIDE RECORDS SUMMARY | 2024-07-11 11:16 | XMS_ITS | Encounter Summary ---
Author Organization [facility] Address [facility] [place] [address] Care Team Providers Care Bonding Equipment Operator Name Role Phone Maximilian Fall MD Primary Care Provider [phone] Encounter Details Date Type Department Care Team (Latest Contact Info) Description 11/06/2015 11:16 AM EST - 11/06/2015 11:17 AM [facility] Hospital Encounter XRay at [address] [place] [address] Dion Barlow MD [facility] [place] [address] Pain in right hip; Bilateral low back [...] by mouth daily. 90 tablet 3 11/22/2012 lisinopril (PRINIVIL;ZESTRIL) 5 mg Tablet Take 5 [...] EDT Office [place] [address] Dion Barlow MD [facility] [place] [address] 09/01/2024 9:40 AM EDT Office Visit Cardiology at [address] [phone] Franky Shaver MD [facility] [place] [address] 09/01/2024 11:20 AM EDT Office Visit Dermatology at [facility] [address] [place] [address] Gómez Mercer MD [facility] DR EDDIE [place] [address] 09/21/2024 2:45 PM EDT Office Visit Pain and Spine Center at [facility] [place] [address] Trung Hoyos MD [facility] [place] [address] documented as of this encounter Procedures Procedure [...] complication documented in this encounter Care Teams Bonding Equipment Operator Relationship Specialty Start Date End Date Maximilian Fall MD [address] [place] [address] PCP - General 10/01/11 02/13/21 documented as of this encounter
--- OUTSIDE RECORDS SUMMARY | 2024-07-11 11:16 | XMS_ITS | Encounter Summary ---
Author Organization [facility] Address [facility] [place] [address] Care Team Providers Care Etl Database Developer Name Role Phone Maximilian Fall MD Primary Care Provider [phone] Reason for Visit * Reason Comments Follow-up Encounter Details Date Type Department Care Team (Late st Contact Info) Description 09/17/2015 4:00 PM EDT Office [place] [address] Marcelle Weinberg, JAZMINE [facility] [place] [address] Left sided colitis, unspecified complication Social History [...] ?? Colonoscopy 04/08/10 (Dr. Gomes [facility]) - inflammation only within the rectum and sigmoid; extent of the exam was to the hepatic flexure; biopsies proximal to the sigmoid nl ?? Repeat exam 11/27/11 ([facility]): mildly active colitis [...] 9:00 AM EDT Office [place] [phone] Dion Barlow MD [facility] [place] [address] 09/01/2024 9:40 AM EDT Office Visit Cardiology at [address] [address] Franky Shaver MD [facility] [place] [address] 09/01/2024 11:20 AM EDT Office Visit Dermatology at [facility] [address] [place] [address] Gómez Mercer MD [facility] [address] [place] [address] 09/21/2024 2:45 PM EDT Office Visit [facility] [place] [phone] Trung Hoyos MD [facility] [place] [address] documented as of this encounter Procedures Procedure [...] MD HEMATOLOGY ORDERABLE S Performing Organization Address City/[facility]/ZIP Co de Phone Number CERGIOVANNI ORDOÑEZENNIUM * [...] Karthik Barlow MD HEMATOLOGY ORDERABLE S CERGI[facility]AN[facility] MILLENNIUM * High Sensitivity CRP (09/17/2015 4:30 PM EDT) C-Reactive Protein High Sensitivity 2.9 mg/L [facility] Comment: Interpretations: 1) For accurate [...] Barlow MD CHEMISTRY ORDERABLES Performing Organization Address [facility] de Phone Number [facility] * (ABNORMAL) Sedimentation rate (09/17/2015 4:30 PM EDT) [facility] Sedimentation Rate Automated 17(H) 0 - 15 mm/hr [facility] Blood specimen (specimen) 09/17/2015 4:30 PM EDT 09/17/2015 4:33 PM EDT Narrative Resulting Agency Comment Spec In Lab L Karthik Barlow MD HEMATOLOGY ORDERABLE S Performing Organization Address [facility] Co de Phone Number [facility] * (ABNORMAL) CMP w/fasting Glucose (09/17/2015 [...] of Diabetes Mellitus, Position Statement from the [place] [employer]. ??Diabetes Care, Volume 33, Supplement 1, Nov 2009 Blood Urea Nitrogen 17 10 - 20 mg/dL [facility] Creatinine 1.10 0.80 - 1.50 mg/dL [facility] Comment: Please note that the pediatric reference intervals supplied above were not validated at [facility]. Results from pediatric [...] the following links into your internet browser. [email or web address] Blood specimen (specimen) 09/17/2015 4:30 PM EDT 09/17/2015 4:33 PM EDT Narrative Resulting Agency Comment Spec In Lab L Karthik Barlow MD CHEMISTRY ORDERABLES DURGA FREDERICK documented in this encounter Visit Diagnoses Diagnosis Left sided colitis, unspecified complication documented in this encounter Care Teams Etl Database Developer Relationship Specialty Start Date End Date Maximilian Fall MD [address] [place] [address] PCP - General 10/01/11 02/13/21 documented as of this encounter
--- OUTSIDE RECORDS SUMMARY | 2024-07-11 11:16 | XMS_ITS | Encounter Summary ---
Author Organization [facility] Address [facility] [place] [address] Care Team Providers Care Senior Process Engineer Name Role Phone Maximilian Fall MD Primary Care Provider [phone] Encounter Details Date Type Department Care Team (Late st Contact Info) Description 02/12/2017 11:15 AM EDT - 02/12/2017 12:00 PM EDT Surgery [place] [address] Dion Barlow MD [facility] [place] [address] COLONOSCOPY FLEXIBLE, WITH BX (WRVU 3.56) Social [...] - 02/12/2017 12:37 PM EDT Please call [phone] before 8pm with problems, questions or concerns, after 5pm call the Hospital at [phone] and ask to speak to the School Laboratory Technician exceptional needs teacher and the brine tank operator will contact that person for you. [...] sent through Care Everywhere. * COLONOSCOPY: POST-OP (MAORI) documented in this encounter Medications at Time [...] 9:00 AM EDT Office Visit [place] [address] Dion Barlow MD [facility] [place] [address] 09/01/2024 9:40 AM EDT Office Visit Cardiology at [address] [place] [phone] Franky Shaver MD [facility] [place] [address] 09/01/2024 11:20 AM EDT Office Visit Dermatology at [facility] [address] [place] [address] Gómez Mercer MD [facility] DR EDDIE [place] [address] 09/21/2024 2:45 PM EDT Office Visit [facility] [place] [address] Trung Hoyos MD [facility] [place] [address] documented as of this encounter Procedures Procedure [...] PM EDT 02/12/2017 12:[address] [facility] - 02/12/2017 12:16 PM EDT Specimen requisition ordered. ??Separate Pathology report to follow L Karthik Barlow MD PATHOLOGY/CYTOLOGY O CEE Performing Organization Address City/[facility]/[place] [address] * Specimen to Pathology (surgical or derm) (02/12/2017 12:16 PM EDT) AP Specimen 02/12/2017 12:1 6 PM EDT 02/12/2017 12:[address] [facility] - 02/12/2017 12:16 PM EDT Specimen requisition ordered. ??Separate Pathology report to follow L Karthik Barlow MD PATHOLOGY/CYTOLOGY O CEE Performing Organization Address City/[facility]/[place] [address] * Specimen to Pathology (surgical or derm) (02/12/2017 12:16 PM EDT) AP Specimen 02/12/2017 12:1 6 PM EDT 02/12/2017 12:16 PM EDT [facility] - 02/12/2017 12:16 PM EDT Specimen requisition ordered. ??Separate Pathology report to follow L Karthik Barlow MD PATHOLOGY/[place] [address] * Specimen to Pathology (surgical or derm) (02/12/2017 12:16 PM EDT) AP Specimen 02/12/2017 12:1 6 PM EDT 02/12/2017 12:[address] [facility] - 02/12/2017 12:16 PM EDT Specimen requisition ordered. ??Separate Pathology report to follow L Karthik Barlow MD PATHOLOGY/CYTOLOGY Ozzie MIKE [facility] [place] [address] * Surgical Pathology Report (02/12/2017 12:15 PM EDT) Final Diagnosis [id number] ?Location: 4T; EA07; A The signing pathologist [...] ing: (T2) ??ejr 02/13/2017 4:[address] [facility] GI Biopsy 02/12/2017 12:1 5 PM EDT 02/12/2017 12:15 PM EDT GI Biopsy 02/12/2017 12:1 5 PM EDT 02/12/2017 12:15 PM EDT GI Biopsy 02/12/2017 12:1 5 PM EDT 02/12/2017 12:15 PM EDT GI Biopsy 02/12/2017 12:1 5 PM EDT 02/12/2017 12:15 PM EDT L Karthik Barlow MD PATHOLOGY/CYTOLOGY O CEE [facility] [place] [address] * COLONOSCOPY (02/12/2017 11:40 AM EDT) COLONOSCOPY [facility] Endoscopy ___ Procedure Date: 02/12/2017 11:40 AM ? Patient Name: Brian Rodriguez ? Date of : 1950 ? Age: 66 ? Order #: [id number] ? Instrument Name: [id number] ? ___ Procedure: ? Colonoscopy Indications: ? High risk colon cancer surveillance: ? Ulcerative colitis Patient Profile: ? This is a 66 year old male. This ? patient has left-sided ulcerative ? colitis on sulfasalazine and ? Cortifoam and is experiencing mild ? symptoms. Providers: ? L. Karthik Barlow MD, Vandana Love ? RONY Mckeon, Sonal [facility], ? Semiconductor Processing Group Leader Referring MD: ?Maximilian Fall MD Medicines: ? [...] preparation was evaluated using ? the BBPS ([place] Bowel Preparation ? Scale) with scores of: [...] GENERAL SURGICAL ORD ERABLES Performing Organization Address City/[facility]/ZIP Co de Phone Number PROVATION * POCT Fingerstick Glucose (02/12/2017 10:30 AM EDT) Glucose, POC 132 60 - 199 mg/dl 02/12/2017 10:3 0 AM EDT Dion Barlow MD POINT OF CARE TEST O RDERAOMAR * POCT Glucose (02/12/2017 10:29 AM EDT) Glucose, POC 132 65 - 199 mg/dL [facility] Comment: Supplemental ranges: <140 mg/dL before meals <180 mg/dL all other times of the day Blood specimen (specimen) 02/12/2017 10:29 AM EDT 02/12/2017 10:29 AM EDT Dion Barlow MD POINT OF CARE TEST O RDMELISSA Performing Organization Address [facility] Co de Phone Number [facility] [place] [address] documented in this encounter Visit Diagnoses Diagnosis [...] documented in this encounter Care Teams Senior Process Engineer Relationship Specialty Start Date End Date Maximilian Fall MD [address] [place] [address] PCP - General 10/01/11 02/13/21 documented as of this encounter
--- OUTSIDE RECORDS SUMMARY | 2024-07-11 11:16 | XMS_ITS | Encounter Summary ---
Author Organization [facility] [place] [address] Care Team Providers Care Auto Motor Mechanic Name Role Phone Maximilian Fall MD Primary Care Provider [phone] Encounter Details Date Type Department Care Team (Late st Contact Info) Description 07/07/2016 Telephone [place] [phone] Bethany Trivedi RN Social History Tobacco Use [...] EDT Cortifoam approved 07/07/16 until furhter notice Karnack id# [id number] * Telephone Encounter - Bethany Trivedi RN - 07/07/2016 12:10 PM EDT Formulary exception form sent in for Cortifoam enemas documented in this encounter Plan of Treatment Upcoming Encounters Date Type Department Care Team (Late st Contact Info) Description 08/15/2024 9:00 AM EDT Office [place] [phone] Dion Barlow MD [facility] [place] [address] 09/01/2024 9:40 AM EDT Office Visit Cardiology at [address] [place] [address] Franky Shaver MD [facility] [place] [address] 09/01/2024 11:20 AM EDT Office Visit Dermatology at [place] [address] [place] [address] Gómez Mercer MD [facility] [place] [address] 09/21/2024 2:45 PM EDT Office Visit [place] [address] Trung Hoyos MD [facility] [place] [address] documented as of this encounter Visit Diagnoses Not on filedocumented in this encounter Care Teams Auto Motor Mechanic Relationship Specialty Start Date End Date Maximilian Fall MD [address] [place] [address] PCP - General 10/01/11 02/13/21 documented as of this encounter
--- OUTSIDE RECORDS SUMMARY | 2024-07-11 11:16 | XMS_ITS | Encounter Summary ---
Author Organization [facility] Address [facility] [place] [address] Care Team Providers Care Fuse Assembler Name Role Phone Maximilian Fall MD Primary Care Provider [phone] Reason for Visit * Reason Comments Follow-up Encounter Details Date Type Department Care Team (Latest Contact Info) Description 11/10/2016 8:30 AM EST Office Visit [place] [address] Dion Barlow MD [facility] [place] [address] Ulcerative rectosigmoiditis with rectal bleeding Social History [...] sigmoid nl ?? Repeat exam 11/27/11 ([facility] mildly active colitis [...] be done with Dr. Fall - tatiana whyte (by my records) 06/2017. # Follow-up with me at the time of colonoscopy and with Farideh Weinberg APRN in the clinic 6 months. 20 min of this 25 min egxv-bv-wibu visit was spent counseling the patient in the issues outlined above. Davina Barlow MD Claims Directorcore paster Section of Gastroenterology [place] [address] documented in this encounter Plan of Treatment Upcoming Encounters Date Type Department Care Team (Late st Contact Info) Description 08/15/2024 9:00 AM EDT Office Visit [place] [address] Dion Barlow MD [facility] [place] [address] 09/01/2024 9:40 AM EDT Office Visit Cardiology at [address] [phone] Franky Shaver MD [facility] [place] [address] 09/01/2024 11:20 AM EDT Office Visit Dermatology at [facility] [address] [place] [address] Gómez Mercer MD [facility] DR [place] [address] 09/21/2024 2:45 PM EDT Office Visit Pain and Spine Center at [facility] [place] [phone] Trung Hoyos MD [facility] [place] [address] Scheduled Orders Name Type Priority Associated Diagnoses Orde r Schedule COLONOSCOPY Procedures Routine Ulcerative rectosigmoiditis with rectal bleeding Ordered: 11/10/2016 documented as of this encounter Visit Diagnoses Diagnosis Ulcerative rectosigmoiditis with rectal bleeding documented in this encounter Care Teams Fuse Assembler Relationship Specialty Start Date End Date Maximilian Fall MD [address] [place] [address] PCP - General 10/01/11 02/13/21 documented as of this encounter
--- OUTSIDE RECORDS SUMMARY | 2024-07-11 11:16 | XMS_ITS | Encounter Summary ---
Author Organization [facility] [place] [facility] Address [facility] [place] [address] Care Team Providers Care Aws Solution Architect Name Role Phone Maximilian Fall MD Primary Care Provider [phone] Encounter Details Date Type Department Care Team (Latest Contact Info) Description 11/06/2015 11:18 AM EST - 11/06/2015 11:59 PM [facility] Hospital Encounter XRay at [address] [place] [address] Dion Barlow MD [facility] [place] [address] Pain in right hip; Bilateral low back [...] 9:00 AM EDT Office Visit [place] [address] Dion Barlow MD [facility] [place] [address] 09/01/2024 9:40 AM EDT Office Visit Cardiology at [address] [phone] Franky Shaver MD [facility] [place] [address] 09/01/2024 11:20 AM EDT Office Visit Dermatology at [facility] [address] [place] [address] Gómez Mercer MD [facility] DR EDDIE [place] [address] 09/21/2024 2:45 PM EDT Office Visit Pain and Spine Center at [facility] [place] [place] [address] Trung Hoyos MD [facility] [place] [address] documented as of this encounter Procedures Procedure [...] complication documented in this encounter Care Teams Aws Solution Architect Relationship Specialty Start Date End Date Maximilian Fall MD [address] [place] [address] PCP - General 10/01/11 02/13/21 documented as of this encounter
--- OUTSIDE RECORDS SUMMARY | 2024-07-11 11:16 | XMS_ITS | Encounter Summary ---
Author Organization [facility] Address [facility] [place] [id number] Care Team Providers Care Dike Supervisor Name Role Phone Maximilian Fall MD Primary Care Provider [phone] Reason for Referral * Diagnostic Test (Routine) - Closed Specialty Diagnoses / Procedures Referred By Contac t Referred To Contact Radiology Diagnoses Postoperative wound abscess, initial encounter Procedures CT Retroperitoneal Abscess Drain Minnie Johnson MD [facility] [place] [address] [facility] [place] [address] Referral ID Status Reason Start Date Expiration Date V isits Requested Visits Authorized [id number] Closed Specialty Service Requested 03/22/2016 03/22/2017 1 1 Encounter Details Date Type Department Care Team (Late st Contact Info) Description 03/22/2016 [place] [address] Minnie Johnson MD [facility] [place] [address] Postoperative wound abscess, initial encounter Social History [...] : 1950 Referring Physician: Dr. Guerin from [facility] Indication: RLQ post-operative abscess Planned Procedure: CT guided abscess drain placement Chief Complaint/HPI: 65 y.o. male with PMHx significant for asthma, diabetes, and ulcerative colitis who is status post laparoscopic appendectomy on 03/13/2016 who noted RLQ pain several days post-op.He presented to [facility] ED and underwent a CT scan with findings consistent with RLQ abscess. We have been consulted for CT guided abscess drain placement. The patient has been admitted to [facility] and will be transferred back to [facility] following the procedure. OSH Labs: WBC 10.2, [...] Hurtado. Minnie Johnson MD Radiology, PGY-2 Pager [phone] documented in this encounter Plan of Treatment Upcoming Encounters Date Type Department Care Team (Late st Contact Info) Description 08/15/2024 9:00 AM EDT Office [place] [address] Dion Barlow MD [facility] [place] [address] 09/01/2024 9:40 AM EDT Office Visit Cardiology at [address] [place] [address] Franky Shaver MD [facility] [place] [address] 09/01/2024 11:20 AM EDT Office Visit Dermatology at [facility] [address] [place] [address] Gómez Mercer MD [facility] DR EDD[place] [address] 09/21/2024 2:45 PM EDT Office Visit Pain and Spine Center at [facility] [place] [phone] Trung Hoyos MD [facility] [place] [address] documented as of this encounter Results * CT Retroperitoneal Abscess Drain (03/22/2016 12:34 PM EDT) Anatomical Region Laterality Modality Abdomen Computed Tomogra phy Narrative 03/22/2016 1:02 PM EDT VIR PROCEDURE NOTE Procedure: CT-guided RLQ?? drainage catheter placement (ACC # [id number]) Indication : 65 y.o. male with PMHx significant for asthma, diabetes, and ulcerative colitis who is status post laparoscopic appendectomy on 03/13/2016 who noted RLQ pain several days post-op. He presented to [facility] ED and underwent a CT scan with findings consistent with RLQ abscess. We have been consulted for CT guided abscess drain placement. The patient has been admitted to [facility] and will be transferred back to [facility] following the procedure. Technique: After discussing risks [...] encounter documented in this encounter Care Teams Dike Supervisor Relationship Specialty Start Date End Date Maximilian Fall MD [address] [place] [address] PCP - General 10/01/11 02/13/21 documented as of this encounter
--- OUTSIDE RECORDS SUMMARY | 2024-07-11 11:16 | XMS_ITS | Encounter Summary ---
Author Organization [facility] [place] [address] Care Team Providers Care Departmental Secretary Name Role Phone Maximilian Fall MD Primary Care Provider [phone] Encounter Details Date Type Department Care Team (Latest Contact Info) Description 07/14/2016 11:55 AM EDT Laboratory Appointment Lab [address] [place] [address] Chronic ulcerative enterocolitis, unspecified complication; Acute amebic [...] 9:00 AM EDT Office [place] [address] Dion Barlow MD [facility] [place] [address] 09/01/2024 9:40 AM EDT Office Visit Cardiology at [address] [phone] Franky Shaver MD [facility] [place] [address] 09/01/2024 11:20 AM EDT Office Visit Dermatology at [facility] [address] [place] [address] Gómez Mercer MD [facility] DR [place] [address] 09/21/2024 2:45 PM EDT Office Visit Pain and Spine Center at [facility] [place] [address] Trung Hoyos MD [facility] [place] [address] documented as of this encounter Procedures Procedure [...] LABORATORY Neutrophil Absolute 3.77 1.50 - 6.30 x10(3)/[facility] LABORATORY Lymph % 27.2 % [facility] Lymphocytes Abs 1.7 1.0 - 3.6 x10(3)/[facility] LABORATORY Monocyte % 9.0 % [facility] Monocyte Abs 0.6 0.2 - 1.0 x10(3)/[facility] LABORATORY Eos % 2.6 % [facility] Eosinophils Abs 0.2 0.0 - 0.5 x10(3)/[facility] Basophil % 0.5 % [facility] Baso Absolute 0.0 0.0 - 0.2 x10(3)/[facility] LABORATORY Immature Gran % 0.50 % [facility] Comment: Immature granulocytes(IG's)percentage and absolute count will include metamyelocytes, myelocytes, and promyelocytes. Blood smears from CBCs yielding IG's will be scanned manually for concordance. If this scan disagrees with the automated IG or if promyelocytes are noted, a manual differential will be performed. Immature Gran Absolute 0.03 0.00 - 0.05 x10(3)/[facility] Blood specimen (specimen) 07/14/2016 12:21 PM EDT 07/14/2016 12:29 PM EDT Narrative Resulting Agency Comment Spec In Lab L Karthik Barlow MD HEMATOLOGY ORDERABLE S [facility] [place] [address] * (ABNORMAL) Hemogram (07/14/2016 12:21 PM EDT) Pathologist [facility] White Blood Cell 6.2 4.0 - 10.0 x10(3)/mc L [facility] Red Blood Cell 4.11(L) 4.63 - 6.08 x10(6)/mc L [facility] Hemoglobin 13.4(L) 13.7 - 17.5 gm/dL [facility] Hematocrit 40.5 40.0 - 51.0 % [facility] Mean Cell Volume 98.5(H) 79.0 - 92.0 fL [facility] Mean Cell Hemoglobin 32.6(H) 25.6 - 32.2 pg [facility] Mean Cell Hemoglobin Concentration 33.1 32.0 - 36.5 gm/dL [facility] Platelet 214 145 - 370 x10(3)/mc L [facility] RDW Standard Deviation 47.4(H) 35.0 - 46.0 fL [facility] RDW coefficient of variation 13.2 10.9 - 14.4 % [facility] Mean Platelet Volume 11.1 9.0 - 12.0 fL [facility] NRBC% auto 0.0 % [facility] NRBC Absolute 0.000 0.000 - 0.012 x10(3)/mc L [facility] Blood specimen (specimen) 07/14/2016 12:21 PM EDT 07/14/2016 12:29 PM EDT Narrative Resulting Agency Comment Spec In Lab L Karthik Barlow MD HEMATOLOGY ORDERABLE S Performing Organization Address City/[facility]/ZIP Co de Phone Number [facility] [place] [address] * (ABNORMAL) Sedimentation rate (07/14/2016 12:21 PM EDT) Sedimentation Rate Automated 17(H) 0 - 15 mm/hr [facility] Blood specimen (specimen) 07/14/2016 12:21 PM EDT 07/14/2016 12:29 PM EDT Narrative Resulting Agency Comment Spec In Lab L Karthik Barlow MD HEMATOLOGY ORDERABLE S [facility] [place] [address] * Comprehensive metabolic panel (non-fasting) (07/14/2016 12:21 PM EDT) Glucose 147 65 - 199 mg/dL [facility] Comment:Diabetes: >=200 mg/d L plus symptoms Blood Urea Nitrogen 17 10 - 20 mg/dL [facility] Creatinine 1.04 0.80 - 1.50 mg/dL [facility] Comment: Please note that the pediatric reference intervals supplied above were not validated at [facility]. Results from pediatric patients should be interpreted in conjunction to the patient's age, height and muscle mass. Sodium 140 135 - 145 mmol/L [facility] Potassium 4.6 3.5 - 5.0 mmol/L [facility] Comment: Please note: ??Patients with WBC >100,000 may have falsely elevated Potassium levels. ??For accurate Potassium quantification in these patients send serum separator tube (gold top) for subsequent determinations. ??Contact the Clinical Chemistry Laboratory if there are any questions. Chloride 102 98 - 107 mmol/L [facility] Carbon Dioxide 25 22 - 31 mmol/L [facility] Anion Gap 13 5 - 15 mmol/L [facility] Calcium 9.7 8.5 - 10.5 mg/dL [facility] Protein, Total 7.9 6.1 - 8.0 gm/dL [facility] Albumin 4.4 3.2 - 5.2 gm/dL [facility] Aspartate Aminotransferase 15 0 - 39 unit/L [facility] Alanine Aminotransferase 20 0 - 55 unit/L [facility] Alkaline Phosphatase 65 40 - 120 unit/L [facility] Bilirubin, Total 0.4 0.2 - 1.3 mg/dL [facility] Bilirubin, Direct 0.1 0.0 - 0.3 mg/dL [facility] Est Glomerular Filtration Rate >60 >=60 [facility] Comment: This estimated GFR [...] the following links into your internet browser. [email or web address] Blood specimen (specimen) 07/14/2016 12:21 PM EDT 07/14/2016 12:29 PM EDT Narrative Resulting Agency Comment Spec In Lab L Karthik Barlow MD CHEMISTRY ORDERABLES [facility] [place] [address] * High Sensitivity CRP (07/14/2016 12:21 PM EDT) [facility] C-Reactive Protein High Sensitivity 4.8 mg/L [facility] Comment: Interpretations: 1) For [...] Lab L Karthik Barlow MD CHEMISTRY ORDERABLES [facility] [place] [address] documented in this encounter Visit Diagnoses Diagnosis Chronic ulcerative enterocolitis, unspecified complication Acute amebic dysentery Acute amebic dysentery without mention of abscess documented in this encounter Care Teams Departmental Secretary Relationship Specialty Start Date End Date Maximilian Fall MD [address] [place] [address] PCP - General 10/01/11 02/13/21 documented as of this encounter
--- OUTSIDE RECORDS SUMMARY | 2024-07-11 11:16 | XMS_ITS | Encounter Summary ---
Author Organization [facility] [place] [address] Care Team Providers Care Service Transformer Repair Supervisor Name Role Phone Maximilian Fall MD Primary Care Provider [phone] Reason for Visit * Reason Onset Date Comments Medication Refill 02/18/2017 Encounter Details Date Type Department Care Team (Late st Contact Info) Description 02/18/2017 Refill [place] [address] Bethany Trivedi, RN Pain in right hip; [...] 9:00 AM EDT Office Visit [place] [phone] Dion Barlow MD [facility] [place] [address] 09/01/2024 9:40 AM EDT Office Visit Cardiology at [address] [place] [phone] Franky Shaver MD [facility] [place] [address] 09/01/2024 11:20 AM EDT Office Visit Dermatology at [facility] [address] [place] [phone] Gómez Mercer MD [facility] DR [place] [address] 09/21/2024 2:45 PM EDT Office Visit [facility] [place] [phone] Trung Hoyos MD [facility] [place] [address] documented as of this encounter Visit Diagnoses Diagnosis Pain in right hip Pain in joint, pelvic region and thigh Chronic ulcerative enterocolitis, unspecified complication documented in this encounter Care Teams Service Transformer Repair Supervisor Relationship Specialty Start Date End Date Maximilian Fall MD [address] [place] [address] PCP - General 10/01/11 02/13/21 documented as of this encounter
--- OUTSIDE RECORDS SUMMARY | 2024-07-11 11:16 | XMS_ITS | Encounter Summary ---
[place] [address] Care Team Providers Care Brewing Technician Name Role Phone Maximilian Fall MD Primary Care Provider [phone] Encounter Details Date Type Department Care Team (Late st Contact Info) Description 03/21/2016 - 03/21/2016 11:59 PM EDT Hospital Encounter [place] [address] [address] Thomas Temporary Pain Discharge Disposition: Home [...] 9:00 AM EDT Office [place] [phone] Dion Barlow MD [facility] [place] [address] 09/01/2024 9:40 AM EDT Office Visit Cardiology at [address] [phone] Franky Shaver MD [facility] [place] [address] 09/01/2024 11:20 AM EDT Office Visit Dermatology at [address] [address] Gómez Mercer MD [facility] DR ED[place] [address] 09/21/2024 2:45 PM EDT Office Visit [facility] [place] [phone] Trung Hoyos MD [facility] [address] documented as of this encounter Procedures Procedure Name Priority Date/Time Associated Diagnosis Comments FILM LIBRARY STORAGE ONLY CT ABDOMEN AND PELVIS Routine 03/21/2016 12:00 AM EDT Pain documented in this encounter Results * Film Library- Storage Only CT Abdomen & Pelvis (03/21/2016 12:00 AM EDT) Narrative [facility] - 03/21/2016 7:24 PM EDT This exam is for storage only and is auto-finalizing. Dr Leiva [facility] FILM LIBRARY ORD ERABLES [place], [place] documented in this encounter Visit Diagnoses Diagnosis Pain Generalized pain documented in this encounter Care Teams Brewing Technician Relationship Specialty Start Date End Date Maximilian Fall MD [address] [place] [address] PCP - General 10/01/11 02/13/21 documented as of this encounter
--- OUTSIDE RECORDS SUMMARY | 2024-07-11 11:16 | XMS_ITS | Encounter Summary ---
Author Organization [facility] [place] [address] Care Team Providers Care Tubular Stock Glass Bulb Machine Former Name Role Phone Maximilian Fall MD Primary Care Provider [phone] Encounter Details Date Type Department Care Team (Late st Contact Info) Description 07/07/2016 Telephone [place] [phone] Bethany Trivedi RN Social History Tobacco Use [...] 9:00 AM EDT Office Visit [place] [address] Dion Barlow MD [facility] [place] [address] 09/01/2024 9:40 AM EDT Office Visit Cardiology at [address] [phone] Franky Shaver MD [facility] [place] [place] [address] 09/01/2024 11:20 AM EDT Office Visit Dermatology at [facility] [address] [place] [address] Gómez Mercer MD [facility] DR EDDIE [place] [address] 09/21/2024 2:45 PM EDT Office Visit [facility] [place] [phone] Trung Hoyos MD [facility] [place] [address] documented as of this encounter Results * C. Difficile Screen (07/18/2016 2:32 PM EDT) C Diff Interp Negative Negative [facility] Comment: C. diff ??Negative Clostridium difficile is not present in the specimen. If patient is having diarrhea suspected to be from an infectious cause, then Contact Precautions are still required. Stool specimen (specimen) 07/18/2016 2:32 PM EDT 07/18/2016 2:32 PM EDT Narrative Resulting Agency Comment Spec In Lab L Karthik Barlow MD MICROBIOLOGY - GENER AL ORDERABLES Performing Organization Address [facility]/ZIP Co de Phone Number [facility] [place] [address] * (ABNORMAL) Sedimentation rate (07/14/2016 12:21 PM EDT) Sedimentation Rate Automated 17(H) 0 - 15 mm/hr [facility] Blood specimen (specimen) 07/14/2016 12:21 PM EDT 07/14/2016 12:29 PM EDT Narrative Resulting Agency Comment Spec In Lab L Karthik Barlow MD HEMATOLOGY ORDERABLE S Performing Organization Address [facility] Co de Phone Number [facility] [place] [address] * Comprehensive metabolic panel (non-fasting) (07/14/2016 12:21 PM EDT) Glucose 147 65 - 199 mg/dL [facility] Comment:Diabetes: >=200 mg/d L plus symptoms Blood Urea Nitrogen 17 10 - 20 mg/dL [facility] Creatinine 1.04 0.80 - 1.50 mg/dL [facility] Comment: Please note that the pediatric reference intervals supplied above were not validated [place] [facility] [place]. Results from pediatric patients should be interpreted in conjunction to the patient's age, height and muscle mass. Sodium 140 135 - 145 mmol/L [facility] Potassium 4.6 3.5 - 5.0 mmol/L [facility] Comment: Please note: ??Patients with WBC >100,000 may have falsely elevated Potassium levels. ??For accurate Potassium quantification in these patients send serum separator tube (gold top) for subsequent determinations. ??Contact the Clinical Chemistry Laboratory if there are any questions. Chloride 102 98 - 107 mmol/L [facility] Carbon Dioxide 25 22 - 31 mmol/L [facility] Anion Gap 13 5 - 15 mmol/L [facility] Calcium 9.7 8.5 - 10.5 mg/dL [facility] Protein, Total 7.9 6.1 - 8.0 gm/dL [facility] Albumin 4.4 3.2 - 5.2 gm/dL [facility] Aspartate Aminotransferase 15 0 - 39 unit/L [facility] Alanine Aminotransferase 20 0 - 55 unit/L [facility] Alkaline Phosphatase 65 40 - 120 unit/L [facility] Bilirubin, Total 0.4 0.2 - 1.3 mg/dL [facility] Bilirubin, Direct 0.1 0.0 - 0.3 mg/dL [facility] Est Glomerular Filtration Rate >60 >=60 [facility] Comment: This estimated GFR [...] the following links into your internet browser. [email or web address] Blood specimen (specimen) 07/14/2016 12:21 PM EDT 07/14/2016 12:29 PM EDT Narrative Resulting Agency Comment Spec In Lab L Karthik Barlow MD CHEMISTRY ORDERABLES [facility] [place] [address] * High Sensitivity CRP (07/14/2016 12:21 PM EDT) C-Reactive Protein High Sensitivity 4.8 mg/L [facility] Comment: Interpretations: 1) For accurate [...] Lab L Karthik Barlow MD CHEMISTRY ORDERABLES [facility] [place] [id number] documented in this encounter Visit Diagnoses Diagnosis Chronic ulcerative enterocolitis, unspecified complication Acute amebic dysentery Acute amebic dysentery without mention of abscess documented in this encounter Care Teams Tubular Stock Glass Bulb Machine Former Relationship Specialty Start Date End Date Maximilian Fall MD [address] [place] [address] [address] PCP - General 10/01/11 02/13/21 documented as of this encounter
--- OUTSIDE RECORDS SUMMARY | 2024-07-11 11:16 | XMS_ITS | Encounter Summary ---
Author Organization [facility] [place] [address] Care Team Providers Care Greenhouse Specialist Name Role Phone Maximilian Fall MD Primary Care Provider [phone] Reason for Visit * Reason Comments Follow-up Encounter Details Date Type Department Care Team (Late st Contact Info) Description 11/06/2015 11:00 AM EST Office Visit [place] [address] Marcelle Weinberg, JAZMINE [facility] [place] [address] Chronic ulcerative enterocolitis, unspecified complication; Abdominal pain, [...] this encounter Progress Notes * Marcelle Weinberg Dg Conte, TRANSITIONAL LIVING SPECIALIST - 11/06/2015 10:28 AM EST Patient Active Problem List Diagnosis ??? Ulcerative colitis Overview Note: ?? Colonoscopy 04/08/10 (Dr. Gomes [facility]) - inflammation only within the rectum and sigmoid; extent of the exam was to the hepatic flexure; biopsies proximal to the sigmoid nl ?? Repeat exam 11/27/11 ([facility] [...] COLONOSCOPY, DIAGNOSTIC performed by Dion OSULLIVAN at [facility] END[facility]COPY ??? Pro sigmoidoscopy, diagnostic 03/16/2012 FLEXIBLE SIGMOIDOSCOPY performed by YUDI MALLOY at [facility] END[facility] ??? Upper gi endoscopy, exam 10/01/2012 UPPER GI ENDOSCOPY performed by Dion OSULLIVAN at [facility] ??? Pro colonoscopy, diagnostic 07/13/2014 COLONOSCOPY, DIAGNOSTIC performed by Dion Osullivan MD at [facility] Physical Exam Constitutional: He [...] 9:00 AM EDT Office Visit [place] [address] Dion Osullivan MD [facility] [place] [address] 09/01/2024 9:40 AM EDT Office Visit Cardiology at [address] [place] [address] Franky Shaver MD [facility] [place] [address] 09/01/2024 11:20 AM EDT Office Visit Dermatology at [facility] [address] [place] [phone] Gómez Mercer MD [facility] [address] 09/21/2024 2:45 PM EDT Office Visit Pain and Spine Center at [facility] [place] [phone] Trung Hoyos MD [facility] [place] [address] documented as of this encounter Results * C. Difficile Screen (11/06/2015 2:30 PM EST) Pathologist [facility] C Diff Interp Negative Negative [facility]ERNER MILLENNIUM Stool specimen (specimen) 11/06/2015 2:30 PM EST 11/06/2015 2:30 PM EST Narrative Resulting Agency Comment Spec In Lab L Karthik Osullivan MD MICROBIOLOGY - GENER AL ORDERABLES [facility] * (ABNORMAL) Urinalysis with reflex Culture (11/06/2015 [...] Urine Dipstick Hazy(A) Clear [facility] MILLENNIUM Specific [place] Urine Automated 1.020 1.002 - 1.030 CERNER [...] complication documented in this encounter Care Teams Greenhouse Specialist Relationship Specialty Start Date End Date Maximilian Fall MD [address] [place] [address] PCP - General 10/01/11 02/13/21 documented as of this encounter
--- OUTSIDE RECORDS SUMMARY | 2024-07-11 11:16 | XMS_ITS | Encounter Summary ---
Author Organization [facility] Address [facility] [place] [address] Care Team Providers Care Dental Chairside Assistant Name Role Phone Maximilian Fall MD Primary Care Provider [phone] Encounter Details Date Type Department Care Team (Late st Contact Info) Description 11/05/2015 Tele[place] [phone] Bethany Trivedi, RN Social History Tobacco Use [...] EDT Office [place] [phone] Dion Barlow MD [facility] [place] [address] 09/01/2024 9:40 AM EDT Office Visit Cardiology at [address] [phone] Franky Shaver MD [facility] [place] [address] 09/01/2024 11:20 AM EDT Office Visit Dermatology at [facility] [address] [place] [phone] Gómez Mercer MD [facility] [place] [address] 09/21/2024 2:45 PM EDT Office Visit [place] [phone] Trung Hoyos MD [facility] [place] [address] documented as of this encounter Results * (ABNORMAL) Sedimentation rate (11/06/2015 10:24 AM EST) Sedimentation Rate Automated 22(H) 0 - 15 mm/hr [employer] [employer] Blood specimen (specimen) 11/06/2015 10:24 AM EST 11/06/2015 10:28 AM EST Narrative Resulting Agency Comment Spec In Lab Dion Barlow MD HEMATOLOGY ORDERABLE S [facility] MILLENNIUM * (ABNORMAL) Comprehensive metabolic panel (non-fasting) (11/06/2015 10:24 AM EST) [facility] Glucose 81 65 - 199 mg/dL [facility] MILLENNIUM Comment:Diabetes: >=200 mg/d L plus symptoms Blood Urea Nitrogen 14 10 - 20 mg/dL [facility] MILLENNIUM Creatinine 1.15 0.80 - 1.50 mg/dL [facility] Comment: Please note that the pediatric reference intervals supplied above were not validated [place] [facility] [place]. Results [...] the following links into your internet browser. [email or web address] Blood specimen (specimen) 11/06/2015 10:24 AM EST 11/06/2015 10:28 AM EST Narrative Resulting Agency Comment Spec In Lab L Karthik Barlow MD CHEMISTRY ORDERABLES Performing Organization Address [facility] de Phone Number DURGA FREDERICK * High Sensitivity CRP (11/06/2015 10:24 AM EST) C-Reactive Protein High Sensitivity 7.9 mg/L [facility] Comment: Interpretations: 1) For accurate [...] Barlow MD CHEMISTRY ORDERABLES Performing Organization Address [facility] Phone Number [facility]URGA FREDERICK documented in this encounter Visit Diagnoses Diagnosis Ulcerative colitis, without complications Diarrhea documented in this encounter Care Teams Dental Chairside Assistant Relationship Specialty Start Date End Date Maximilian Fall MD [address] [place] [address] [address] [place] [address] PCP - General 10/01/11 02/13/21 documented as of this encounter
--- OUTSIDE RECORDS SUMMARY | 2024-07-11 11:16 | XMS_ITS | Encounter Summary ---
Author Organization [facility] Address [facility] [place] [address] Care Team Providers Care Wide Load Escort Name Role Phone Maximilian Fall MD Primary Care Provider [phone] Reason for Visit * Reason Comments Follow-up Encounter Details Date Type Department Care Team (Late st Contact Info) Description 05/16/2016 10:30 AM EDT Office [place] [address] Dion Barlow MD [facility] [place] [address] Other ulcerative colitis with complication Social History [...] Dr. Fall. # Follow-up with me or Faridhe Weinberg APRN in 6 months. documented in this encounter Progress Notes * Dion Barlow MD - 05/16/2016 10:58 AM EDT Patient Active Problem List Diagnosis ??? Ulcerative colitis Overview Note: ?? Colonoscopy 04/08/10 (Dr. Gomes [facility]) - inflammation only within the rectum and sigmoid; extent of the exam was to the hepatic flexure; biopsies proximal to the sigmoid nl ?? Repeat exam 11/27/11 ([facility] mildly active colitis in [...] months. 10 min of this 15 min [id number] visit was spent counseling the patient in the issues outlined above. Davina Barlow MD [employer] Programmermailroom supervisor Section of Gastroenterology [place] [address] documented in this encounter Plan of Treatment Upcoming Encounters Date Type Department Care Team (Late st Contact Info) Description 08/15/2024 9:00 AM EDT Office [place] [phone] Dion Barlow MD [facility] [place] [address] 09/01/2024 9:40 AM EDT Office Visit Cardiology at [address] [place] [address] Franky Shaver MD [facility] [place] [address] 09/01/2024 11:20 AM EDT Office Visit Dermatology at [facility] [address] [place] [address] Gómez Mercer MD [facility] [place] [address] 09/21/2024 2:45 PM EDT Office Visit [place] [address] Trung Hoyos MD [facility] [place] [address] documented as of this encounter Visit Diagnoses Diagnosis Other ulcerative colitis with complication documented in this encounter Care Teams Wide Load Escort Relationship Specialty Start Date End Date Maximilian Fall MD [address] [facility] [place] [address] PCP - General 10/01/11 02/13/21 documented as of this encounter
--- OUTSIDE RECORDS SUMMARY | 2024-07-11 11:16 | XMS_ITS | Encounter Summary ---
Author Organization [facility] [place] [address] Care Team Providers Care Registered Nurse Hh Case Manager Name Role Phone Maximilian Fall MD Primary Care Provider [phone] Encounter Details Date Type Department Care Team (Late st Contact Info) Description 11/08/2015 Orders [place] [address] Marcelle Weinberg, GUYLINE OPERATOR [facility] [place] [address] Urinary tract infection without hematuria, site unspecified [...] this encounter Progress Notes * Marcelle Weinberg, GUYLINE OPERATOR - 11/08/2015 5:53 PM EST I spoke [...] UA Latest Range: Clear Hazy (A) Spec [place] UA Latest Range: 1.002-1.030 1.020 pH UA [...] 9:00 AM EDT Office [place] [phone] Dion Barlow MD [facility] [place] [address] 09/01/2024 9:40 AM EDT Office Visit Cardiology at [address] [place] [address] Franky Shaver MD [facility] [place] [address] 09/01/2024 11:20 AM EDT Office Visit Dermatology at [address] [place] [address] Gómez Mercer MD [facility] [place] [address] 09/21/2024 2:45 PM EDT Office Visit [place] [address] Trung Hoyos MD [facility] [place] [address] documented as of this encounter Visit Diagnoses Diagnosis Urinary tract infection without hematuria, site unspecified documented in this encounter Care Teams Registered Nurse Hh Case Manager Relationship Specialty Start Date End Date Maximilian Fall MD [address] [place] [address] PCP - General 10/01/11 02/13/21 documented as of this encounter
--- OUTSIDE RECORDS SUMMARY | 2024-07-11 11:16 | XMS_ITS | Encounter Summary ---
Author Organization [facility] [place] [address] Care Team Providers Care Communicable Disease Specialist Name Role Phone Maximilian Fall MD Primary Care Provider [phone] Encounter Details Date Type Department Care Team (Latest Contact Info) Description 07/18/2016 2:18 PM EDT - 07/18/2016 11:59 PM EDT Hospital [place] [address] Left sided colitis, unspecified complication; Chronic ulcerative [...] 9:00 AM EDT Office [place] [address] Dion Barlow MD [facility] [place] [address] 09/01/2024 9:40 AM EDT Office Visit Cardiology at [address] [phone] Franky Shaver MD [facility] [place] [address] 09/01/2024 11:20 AM EDT Office Visit Dermatology at [facility] [address] [place] [address] Gómez Mercer MD [facility] DR EDDIE [place] [address] 09/21/2024 2:45 PM EDT Office Visit Pain and Spine Center at [facility] [place] [address] Trung Hoyos MD [facility] [place] [address] documented as of this encounter Procedures Procedure Name Priority Date/Time Associated Diagnosis Comments CAMPYLOBACTER ANTIGEN Routine 07/18/2016 2:32 PM EDT Chronic ulcerative enterocolitis, unspecified complication Acute amebic dysentery C. DIFFICILE SCREEN Routine 07/18/2016 2 :32 PM EDT Chronic ulcerative enterocolitis, unspecified complication Acute amebic dysentery STOOL CULTURE SCREEN ([facility]) Routine 07/18/2016 2:27 PM EDT Chronic ulcerative enterocolitis, unspecified complication Acute amebic dysentery CRYPTOSPORIDIUM OOCYST ANTIGEN ([facility]) Routine 07/18/2016 2:27 PM EDT Left sided colitis, unspecified complication SHIGA TOXIN ASSAY Routine 07/18/2016 2:2 7 PM EDT Chronic ulcerative enterocolitis, unspecified complication Acute amebic dysentery GIARDIA/CRYPTOSPORIDIUM ANTIGENS ([facility]) Routine 07/18/2016 2:27 PM EDT Left sided colitis, unspecified complication GIARDIA ANTIGEN ([facility]) Routine 07/18/2016 2:27 PM EDT Left sided colitis, unspecified complication STOOL CULTURE Routine 07/18/2016 2:27 PM EDT Chronic ulcerative enterocolitis, unspecified complication Acute amebic dysentery documented in this encounter Results * Campylobacter Antigen (07/18/2016 2:32 PM EDT) Pathologist [facility] Campylobacter Ag Immunoassay Negative for Campylobacter Antigen [facility] Stool specimen (specimen) 07/18/2016 2:32 PM EDT 07/18/2016 2:32 PM EDT Narrative Resulting Agency Comment Spec In Lab L Karthik Barlow MD MICROBIOLOGY - GENER AL ORDERABLES Performing Organization Address City/[facility]/ZIP Co de Phone Number [facility] [place] [address] * C. Difficile Screen (07/18/2016 2:32 PM EDT) C Diff Interp Negative Negative [facility] Comment: C. diff ??Negative Clostridium difficile is not present in the specimen. If patient is having diarrhea suspected to be from an infectious cause, then Contact Precautions are still required. Stool specimen (specimen) 07/18/2016 2:32 PM EDT 07/18/2016 2:32 PM EDT Narrative Resulting Agency Comment Spec In Lab L Karthik Barlow MD MICROBIOLOGY - GENER AL ORDERABLES Performing Organization Address [facility] Co de Phone Number [facility] [place] [address] * Shiga Toxin Detection (07/18/2016 2:27 PM EDT) Shiga Toxin Assay EIA Negative for Shiga Toxin 1 EIA Negative for Shiga Toxin 2 [facility] Stool specimen (specimen) 07/18/2016 2:27 PM EDT 07/18/2016 2:32 PM EDT Narrative Resulting Agency Comment Spec In Lab Dion Barlow MD MICROBIOLOGY - GENER AL ORDERABLES Performing Organization Address City/[facility] Co de Phone Number [facility] [place] [address] * Stool culture (07/18/2016 2:27 PM EDT) Stool Culture No enteric pathogens isolated [facility] Stool specimen (specimen) 07/18/2016 2:27 PM EDT 07/18/2016 2:32 PM EDT Narrative Resulting Agency Comment Spec In Lab L Karthik Barlow MD MICROBIOLOGY - GENER AL ORDERABLES Performing Organization Address [facility] Co de Phone Number [facility] [place] [address] * Cryptosporidium Oocyst Antigen (07/18/2016 2:27 PM EDT) Cryptosporidium Antigen Negative Negative [facility] Stool specimen (specimen) 07/18/2016 2:27 PM EDT 07/18/2016 2:32 PM EDT Narrative Resulting Agency Comment Spec In Lab L Karthik Barlow MD MICROBIOLOGY - GENER AL ORDERABLES Performing Organization Address [facility] Co de Phone Number [facility] [place] [address] * Giardia antigen (07/18/2016 2:27 PM EDT) Giardia Antigen Negative Negative [facility] Comment:Examination for othe r intestinal parasites requires foreign travel history. Stool specimen (specimen) 07/18/2016 2:27 PM EDT 07/18/2016 2:32 PM EDT Narrative Resulting Agency Comment Spec In Lab L Karthik Barlow MD MICROBIOLOGY - GENER AL ORDERABLES Performing Organization Address [facility] Co de Phone Number [facility] [place] [address] documented in this encounter Visit Diagnoses Diagnosis Left sided colitis, unspecified complication Chronic ulcerative enterocolitis, unspecified complication Acute amebic dysentery Acute amebic dysentery without mention of abscess documented in this encounter Care Teams Communicable Disease Specialist Relationship Specialty Start Date End Date Maximilian Fall MD [address] [place] [address] PCP - General 10/01/11 02/13/21 documented as of this encounter
--- OUTSIDE RECORDS SUMMARY | 2024-07-11 11:16 | XMS_ITS | Encounter Summary ---
Author Organization [facility] Address [facility] [place] [address] Care Team Providers Care Property Disposal Officer Name Role Phone Maximilian Fall MD Primary Care Provider [phone] Reason for Visit * Reason Comments Follow-up Encounter Details Date Type Department Care Team (Late st Contact Info) Description 04/08/2016 1:30 PM EDT Office [place] [address] Marcelle Weinberg, JAZMINE [facility] [place] [address] Ulcerative chronic pancolitis, unspecified complication Social History [...] Note: ?? Colonoscopy 04/08/10 (Dr. Gomes [facility]) - inflammation only within the rectum and sigmoid; extent of the exam was to the hepatic flexure; biopsies proximal to the sigmoid nl ?? Repeat exam 11/27/11 ([facility]): mildly active colitis in [...] DIAGNOSTIC performed by Dion OSULLIVAN at [facility] ??? Pro sigmoidoscopy, diagnostic 03/16/2012 FLEXIBLE SIGMOIDOSCOPY performed by YUDI MALLOY at [facility] ??? Upper gi endoscopy, exam 10/01/2012 UPPER GI ENDOSCOPY performed by Dion OSULLIVAN at [facility] ??? Pro colonoscopy, diagnostic 07/13/2014 COLONOSCOPY, DIAGNOSTIC performed by Dion Osullivan MD at [facility] No family history on file. [...] 9:00 AM EDT Office [place] [address] Dion Osullivan MD [facility] [place] [address] 09/01/2024 9:40 AM EDT Office Visit Cardiology at [address] [address] Franky Shaver MD [facility] [place] [address] 09/01/2024 11:20 AM EDT Office Visit Dermatology at [facility] [address] [place] [phone] Gómez Mercer MD [facility] DR EDDIE S[place] [address] 09/21/2024 2:45 PM EDT Office Visit [place] [phone] Trung Hoyos MD [facility] [place] [address] documented as of this encounter Visit Diagnoses Diagnosis Ulcerative chronic pancolitis, unspecified complication documented in this encounter Care Teams Property Disposal Officer Relationship Specialty Start Date End Date Maximilian Fall MD [address] [place] [address] PCP - General 10/01/11 02/13/21 documented as of this encounter
--- OUTSIDE RECORDS SUMMARY | 2024-07-11 11:16 | XMS_ITS | Encounter Summary ---
Author Organization [facility] [place] [address] Care Team Providers Care Clinical Therapist Name Role Phone Maximilian Fall MD Primary Care Provider [phone] Encounter Details Date Type Department Care Team (Late Contact Info) Description 11/06/2015 Orders Only [place] [phone] Marcelle Weinberg, JAZMINE [facility] [place] [address] Ulcerative colitis without complications Social History Tobacco [...] 9:00 AM EDT Office Visit [place] [phone] Dion Barlow MD [facility] [place] [address] 09/01/2024 9:40 AM EDT Office Visit Cardiology at [address] [place] [phone] Franky Shaver MD [facility] [place] [address] 09/01/2024 11:20 AM EDT Office Visit Dermatology at [facility] [address] [place] [phone] Gómez Mercer MD [facility] DR EDD[place] [address] 09/21/2024 2:45 PM EDT Office Visit Pain and Spine Center at [facility] [place] [phone] Trung Hoyos MD [facility] [place] [address] documented as of this encounter Visit Diagnoses Diagnosis Ulcerative colitis without complications Ulcerative colitis, unspecified documented in this encounter Care Teams Clinical Therapist Relationship Specialty Start Date End Date Maximilian Fall MD [address] [facility] [place] [address] PCP - General 10/01/11 02/13/21 documented as of this encounter
--- OUTSIDE RECORDS SUMMARY | 2024-07-11 11:17 | XMS_ITS | Encounter Summary ---
Author Organization [facility] Address [facility] [place] [address] Care Team Providers Care Cloth Winding Supervisor Name Role Phone More Naylor MD Primary Care Provider [phone] Reason for Visit * Reason Comments Follow-up Encounter Details Date Type Department Care Team (Late st Contact Info) Description 11/01/2013 2:00 PM EST Follow-[place] [address] Dion Barlow MD [facility] [place] [address] Ulcerative colitis (Primary Dx) Discharge Disposition: Home [...] ??? Ulcerative colitis Colonoscopy 04/08/10 (Dr. Gomes [facility]) - inflammation only within the rectum and sigmoid; extent of the exam was to the hepatic flexure; biopsies proximal to the sigmoid nl Repeat exam 11/27/11 ([facility] mildly active colitis in the sigmoid colon [...] has left-sided ulcerative colitis with persistently active [id number] symptom - now worse off of his [...] CC: MORE NAYLOR MD [address] [place] [address] documented in this encounter Plan of Treatment Upcoming Encounters Date Type Department Care Team (Late st Contact Info) Description 08/15/2024 9:00 AM EDT Office [place] [address] Dion Barlow MD [facility] [place] [address] 09/01/2024 9:40 AM EDT Office Visit Cardiology at [address] [place] [phone] Franky Shaver MD [facility] [place] [address] 09/01/2024 11:20 AM EDT Office Visit Dermatology at [facility] [address] [place] [phone] Gómez Mercer MD [facility] DR [place] [address] 09/21/2024 2:45 PM EDT Office Visit Pain and Spine Center at [facility] [place] [phone] Trung Hoyos MD [facility] [place] [address] documented as of this encounter Procedures Procedure [...] L Karthik Barlow MD HEMATOLOGY ORDERABLE S [facility]ILL[facility] * (ABNORMAL) Comprehensive metabolic panel (non-fasting) (11/01/2013 3:39 PM EST) Glucose 110 60 - 199 mg/dL [facility] Comment:Diabetes: >=200 mg/d L plus symptoms Blood Urea Nitrogen 11 10 - 20 mg/dL [facility] Creatinine 0.91 0.80 - 1.50 mg/dL [facility] Comment: Please note that the pediatric reference intervals supplied above were not validated at [facility]. Results from pediatric patients should be interpreted [...] L Karthik Barlow MD CHEMISTRY ORDERABLES [facility] * (ABNORMAL) CBC (with Diff) (11/01/2013 3:39 [...] unspecified documented in this encounter Care Teams Cloth Winding Supervisor Relationship Specialty Start Date End Date More Naylor MD [address] [place] [address] PCP - General 10/01/11 02/13/21 documented as of this encounter
--- OUTSIDE RECORDS SUMMARY | 2024-07-11 11:17 | XMS_ITS | Encounter Summary ---
Author Organization [facility] Address [facility] [place] [address] Care Team Providers Care Salesperson Fashion Accessories Name Role Phone Maximilian Fall MD Primary Care Provider [phone] Encounter Details Date Type Department Care Team (Late st Contact Info) Description 09/11/2014 Orders [place] [phone] Bethany Trivedi RN Other ulcerative colitis (Primary [...] 9:00 AM EDT Office [place] [phone] Dion Barlow MD [facility] [place] [address] 09/01/2024 9:40 AM EDT Office Visit Cardiology at [address] [phone] Franky Shaver MD [facility] [place] [address] 09/01/2024 11:20 AM EDT Office Visit Dermatology at [facility] [address] [place] [address] Gómez Mercer MD [facility] [place] [address] 09/21/2024 2:45 PM EDT Office Visit Pain and Spine Center at [facility] [place] [address] Trung Hoyos MD [facility] [place] [address] documented as of this encounter Visit Diagnoses Diagnosis Other ulcerative colitis- Primary documented in this encounter Care Teams Salesperson Fashion Accessories Relationship Specialty Start Date End Date Maximilian Fall MD [address] [place] [address] PCP - General 10/01/11 02/13/21 documented as of this encounter
--- OUTSIDE RECORDS SUMMARY | 2024-07-11 11:17 | XMS_ITS | Encounter Summary ---
Author Organization [facility] Address [facility] [place] [address] Care Team Providers Care Mechanical Research Engineer Name Role Phone More Naylor MD Primary Care Provider [phone] Reason for Visit * Reason Comments Ulcerative Colitis Encounter Details Date Type Department Care Team (Late st Contact Info) Description 04/21/2012 1:30 PM EDT Follow-[place] [address] Dion Barlow MD [facility] [place] [address] Ulcerative colitis (Primary Dx) Discharge Disposition: Home [...] to the sigmoid nl Repeat exam [facility] has left-sided ulcerative colitis with persistently active fccn-dv-[id number] symptoms andmildly active disease endoscopically. He failed [...] CC: MORE NAYLOR MD [address] [facility] [address] documented in this encounter Plan of Treatment Upcoming Encounters Date Type Department Care Team (Late st Contact Info) Description 08/15/2024 9:00 AM EDT Office [place] [address] Dion Barlow MD [facility] [place] [address] 09/01/2024 9:40 AM EDT Office Visit Cardiology at [address] [place] [address] Franky Shaver MD [facility] [place] [address] 09/01/2024 11:20 AM EDT Office Visit Dermatology at [facility] [address] [place] [phone] Gómez Mercer MD [facility] [place] [address] 09/21/2024 2:45 PM EDT Office Visit [place] [address] Trung Hoyos MD [facility] [place] [address] documented as of this encounter Visit Diagnoses Diagnosis Ulcerative colitis- Primary Ulcerative colitis, unspecified documented in this encounter Care Teams Mechanical Research Engineer Relationship Specialty Start Date End Date More Naylor MD [address] [facility] 1 [place] [address] PCP - General 10/01/11 02/13/21 documented as of this encounter
--- OUTSIDE RECORDS SUMMARY | 2024-07-11 11:17 | XMS_ITS | Encounter Summary ---
Author Organization [facility] Address [facility] [place] [address] Care Team Providers Care Medical Office Technology Instructor Name Role Phone Maximilian Fall MD Primary Care Provider [phone] Encounter Details Date Type Department Care Team (Late st Contact Info) Description 03/02/2012 Orders [place] [phone] Dion Barlow MD [facility] [place] [address] Exam for clinical research (Primary Dx) Social [...] 9:00 AM EDT Office [place] [phone] Dion Barlow MD [facility] [place] [address] 09/01/2024 9:40 AM EDT Office Visit Cardiology at [address] [place] [place] [address] Franky Shaver MD [facility] [place] [address] 09/01/2024 11:20 AM EDT Office Visit Dermatology at [facility] [address] [place] [address] Gómez Mercer MD [facility] DR EDDIE [place] [address] 09/21/2024 2:45 PM EDT Office Visit Pain and Spine Center at [facility] [place] [address] Trung Hoyos MD [facility] [place] [address] documented as of this encounter Results * [...] trial documented in this encounter Care Teams Medical Office Technology Instructor Relationship Specialty Start Date End Date Maximilian Fall MD [address] [place] [address] PCP - General 10/01/11 02/13/21 documented as of this encounter
--- OUTSIDE RECORDS SUMMARY | 2024-07-11 11:17 | XMS_ITS | Encounter Summary ---
Author Organization [facility] Address [facility] [place] [address] Care Team Providers Care Panama Hat Blocker Name Role Phone Maximilian Fall MD Primary Care Provider [phone] Encounter Details Date Type Department Care Team (Latest Contact Info) Description 10/01/2012 2:23 PM EST - 10/01/2012 6:31 PM EST Hospital Encounter [place] [address] Doin Osullivan MD [facility] [place] [address] Discharge Disposition: Home Social History Tobacco Use [...] GI ENDOSCOPY: WHAT TO EXPECT AT HOME (SALVADOREAN) documented in this encounter Medications at Time of Discharge Medication Sig Dispensed Refills Start Date End Date lisinopril (PRINIVIL;ZESTRIL) 10 mg tablet Take 5 [...] mouth every 6 hours as needed. 03/06/2014 omeprazole (PRILOSEC) 20 mg capsule Take 40 mg by mouth daily. 07/04/2024 MULTI-VITAMIN ORAL Take by mouth daily. 0 [...] Osullivan MD - 10/01/2012 5:07 PM EST [facility] Operative Note Patient Name: Naya Rodriguez : [id number] MR#: [id number] Case Date: 10/01/2012 Surgeon: Surgeon(s) and Role: [...] 9:00 AM EDT Office [place] [address] Dion Osullivan MD [facility] [place] [address] 09/01/2024 9:40 AM EDT Office Visit Cardiology at [address] [phone] Franky Shaver MD [facility] [place] [address] 09/01/2024 11:20 AM EDT Office Visit Dermatology at [address] [place] [address] Gómez Mercer MD [facility] [address] 09/21/2024 2:45 PM EDT Office Visit [place] [address] Trung Hoyos MD [facility] PA[place] [address] documented as of this encounter Procedures Procedure [...] PM EST) Surgical Pathology Report ? [facility] ? Provider: ?? Dion OSULLIVAN ?Pt. Name: ?? SHANT NAYA Joya ? Acc #: ?[id number] ?Pt. ? Col Date: ?? 10/01/2012 ? [...] MD PATHOLOGY/CYTOLOGY O CEE Performing Organization Address City/[facility] Co de Phone Number [facility] * Specimen to Pathology (surgical or derm) (10/01/2012 5:09 PM EST) AP Specimen 10/01/2012 5:09 PM EST 10/01/2012 5:09 PM EST Narrative [facility] - 10/01/2012 5:09 PM EST Specimen requisition ordered. ??Separate Pathology report to follow L Karthik Osullivan MD PATHOLOGY/CYTOLOGY O CEE [facility] * UPPER GI ENDOSCOPY (10/01/2012 4:41 PM EST) UPPER GI ENDOSCOPY [facility] Endoscopy Patient Name: Naya Rodriguez ? Procedure Date: 10/01/2012 4:41 PM ? Date of : 1950 ? Age: 62 ? Order #: [id number] ? Procedure: ? Upper GI endoscopy Indications: ? Epigastric abdominal pain Providers: ? L Karthik Osullivan MD, Alannah Singletary, ? RN, Mona Osborne, Roller Mechanic Referring : ?Maximilian Fall MD Medicines: ? [...] GENERAL SURGICAL ORD ERABLES Performing Organization Address [facility] Co de Phone Number [facility] * POCT GLUCOSE (10/01/2012 4:27 PM EST) Glucose, POC 84 60 - 199 mg/dL [facility] Comment: Supplemental ranges: <110 mg/dL before meals <200 mg/dL all other times of the day Blood specimen (specimen) 10/01/2012 4:27 PM EST 10/01/2012 4:27 PM EST Dion Osullivan MD POINT OF CARE TEST O RDERAOMAR [facility] documented in this encounter Visit Diagnoses Not on filedocumented in this encounter Active and Recently Administered Medications Times are shown in EST. PRN Medication Order 09/29/2012 09/30/2012 10/01/2012 fentaNYL 50mcg/mL injection (CANCELED) ONCE PRN, Starting on Thu10/01/12 at 1654, Until Thu10/01/12 at 2031, Pain, Intra-Operative (Intra-Procedure), Routine 4 (Given - Provid er: Alannah Singletary RN)1656 (Given - Provider: Alannah Singletary RN)1658 (Given - Provider: Alannah Singletary RN) midazolam (VERSED) injection (CANCELED) ONCE PRN, Starting on Thu10/01/12 at 1654, Until Thu10/01/12 at 2031, Sleep, Intra-Operative (Intra-Procedure), Routine 1653 (Given - Provid er: Alannah Singletary RN)1656 (Given - Provider: Alannah Singletary RN) documented in this encounter Care Teams Panama Hat Blocker Relationship Specialty Start Date End Date Maximilian Fall MD [address] [place] [address] PCP - General 10/01/11 02/13/21 documented as of this encounter
--- OUTSIDE RECORDS SUMMARY | 2024-07-11 11:17 | XMS_ITS | Encounter Summary ---
[place] [address] Care Team Providers Care Rod And Tube Straightener Name Role Phone Maximilian Fall MD Primary Care Provider [phone] Encounter Details Date Type Department Care Team (Late st Contact Info) Description 09/30/2012 Telephone [place] [phone] Lilliana Reece RN Social History Tobacco Use [...] louis ----- Message ----- From: Lab In [facility] Chong Sent: 09/20/2012 11:34 AM To: Marcelle [...] AM EDT Office Visit [place] [address] Dion Barlow MD [facility] [place] [address] 09/01/2024 9:40 AM EDT Office Visit Cardiology at [address] [place] [address] Franky Shaver MD [facility] [address] 09/01/2024 11:20 AM EDT Office Visit Dermatology at [facility] [address] [place] [address] Gómez Mercer MD [facility] [place] [address] 09/21/2024 2:45 PM EDT Office Visit [facility] [place] [phone] Trung Hoyos MD [facility] [place] [address] documented as of this encounter Visit Diagnoses Not on filedocumented in this encounter Care Teams Rod And Tube Straightener Relationship Specialty Start Date End Date Maximilian Fall MD [address] [place] [address] PCP - General 10/01/11 02/13/21 documented as of this encounter
--- OUTSIDE RECORDS SUMMARY | 2024-07-11 11:17 | XMS_ITS | Encounter Summary ---
Author Organization [facility] Address [facility] [place] [address] Care Team Providers Care Web Press Operator Apprentice Name Role Phone Maximilian Fall MD Primary Care Provider [phone] Encounter Details Date Type Department Care Team (Late st Contact Info) Description 10/01/2012 4:15 PM EST - 10/01/2012 4:45 PM EST [place] [address] [facility] [place] [address] UPPER GI ENDOSCOPY Social History Tobacco Use [...] GI ENDOSCOPY: WHAT TO EXPECT AT HOME (QATARI) documented in this encounter Medications at Time [...] Osullivan MD - 10/01/2012 5:07 PM EST [facility] Operative Note Patient Name: Naya Rodriguez : [id number] MR#: [id number] Case Date: 10/01/2012 Surgeon: Surgeon(s) and Role: [...] 9:00 AM EDT Office [place] [address] [facility] [place] [address] 09/01/2024 9:40 AM EDT Office Visit Cardiology at [address] [phone] [facility] [place] [address] 09/01/2024 11:20 AM EDT Office Visit Dermatology at [address] [place] [address] [address]z [address] MD [facility] [place] [address] 09/21/2024 2:45 PM EDT Office Visit [place] [address] [facility] [place] [address] documented as of this encounter Procedures Procedure [...] 5:54 PM EST) Surgical Pathology Report ? [facility] ? Provider: ?? Dion OSULLIVAN ?Pt. Name: ?? NAYA RODRIGUEZ ? Acc #: ?[id number] ?Pt. ? Col Date: ?? 10/01/2012 ? [...] MD PATHOLOGY/CYTOLOGY O CEE Performing Organization Address City/[facility] Co de Phone Number DURGA FREDERICK * Specimen to Pathology (surgical or derm) (10/01/2012 5:09 PM EST) AP Specimen 10/01/2012 5:09 PM EST 10/01/2012 5:09 PM EST Narrative [facility] - 10/01/2012 5:09 PM EST Specimen requisition ordered. ??Separate Pathology report to follow L Karthik Osullivan MD PATHOLOGY/CYTOLOGY O CEE [facility] * UPPER GI ENDOSCOPY (10/01/2012 4:41 PM EST) UPPER GI ENDOSCOPY [facility] Endoscopy Patient Name: Naya Rodriguez ? Procedure Date: 10/01/2012 4:41 PM ? Date of : 1950 ? Age: 62 ? Order #: [id number] ? Procedure: ? Upper GI endoscopy Indications: ? Epigastric abdominal pain Providers: ? L Karthik Osullivan MD, Alannah Singletary, ? RN, Mona Osborne, Intranet Developer Referring : ?Maximilian Fall MD Medicines: ? [...] EST Maximilian Fall MD GENERAL SURGICAL ORD ERAOMAR Performing Organization Address City/[facility] Co de Phone Number PROVATION * POCT GLUCOSE (10/01/2012 4:27 PM EST) Glucose, POC 84 60 - 199 mg/dL [facility] Comment: Supplemental ranges: <110 mg/dL before meals <200 mg/dL all other times of the day Blood specimen (specimen) 10/01/2012 4:27 PM EST 10/01/2012 4:27 PM EST Dion Osullivan MD POINT OF CARE TEST O RDMELISSA DURGA FREDERICK documented in this encounter Visit [...] RN) documented in this encounter Care Teams Web Press Operator Apprentice Relationship Specialty Start Date End Date Maximilian Fall MD [address] [place] [address] PCP - General 10/01/11 02/13/21 documented as of this encounter
--- OUTSIDE RECORDS SUMMARY | 2024-07-11 11:17 | XMS_ITS | Encounter Summary ---
Author Organization [facility] Address [facility] [place] [address] Care Team Providers Care Limerock Tower Loader Name Role Phone Maximilian Fall MD Primary Care Provider [phone] Encounter Details Date Type Department Care Team (Latest Contact Info) Description 03/02/2012 9:31 AM EDT - 03/02/2012 11:59 PM EDT Hospital Encounter XRay at [address] [place] [address] CLINIC, Dion Edmonds MD [facility] [place] [address] Exam for clinical research Discharge Disposition: Home [...] Sig Dispensed Refills Start Date End Date acetaminophen (TYLENOL) 500 mg tablet Take 500 [...] 9:00 AM EDT Office Visit [place] [address] [facility] [place] [address] 09/01/2024 9:40 AM EDT Office Visit Cardiology at [address] [phone] Franky Shaver MD [facility] [address] 09/01/2024 11:20 AM EDT Office Visit Dermatology at [facility] [address] [place] [phone] [address] [facility] DR [place] [address] 09/21/2024 2:45 PM EDT Office Visit [facility] [place] [address] [facility] [place] [address] documented as of this encounter Procedures Procedure [...] trial documented in this encounter Care Teams Limerock Tower Loader Relationship Specialty Start Date End Date Maximilian Fall MD [address] [place] [address] PCP - General 10/01/11 02/13/21 documented as of this encounter
--- OUTSIDE RECORDS SUMMARY | 2024-07-11 11:17 | XMS_ITS | Encounter Summary ---
Author Organization [facility] Address [facility] [place] [address] Care Team Providers Care Court Collections Officer Name Role Phone Maximilian Fall MD Primary Care Provider [phone] Encounter Details Date Type Department Care Team (Late st Contact Info) Description 09/11/2014 10:00 AM EDT [place] [address] Dion Barlow MD [facility] [place] [address] Ulcerative colitis, other complication (Primary Dx) Discharge [...] the sigmoid nl ?? Repeat exam 11/27/11 ([facility] mildly active colitis in the sigmoid colon [...] 6 months or sooner. Davina Barlow MD Practice Advisorotr company truck driver Section of Gastroenterology [place] [address] documented in this encounter Plan of Treatment Upcoming Encounters Date Type Department Care Team (Late st Contact Info) Description 08/15/2024 9:00 AM EDT Office [place] [address] Dion Barlow MD [facility] [place] [address] 09/01/2024 9:40 AM EDT Office Visit Cardiology at [address] [phone] Franky Shaver MD [facility] [place] [address] 09/01/2024 11:20 AM EDT Office Visit Dermatology at [facility] [address] [place] [address] Gómez Mercer MD [facility] DR [place] [address] 09/21/2024 2:45 PM EDT Office Visit [place] [address] Trung Hoyos MD [facility] [place] [address] documented as of this encounter Visit Diagnoses Diagnosis Ulcerative colitis, other complication- Primary documented in this encounter Care Teams Court Collections Officer Relationship Specialty Start Date End Date Maximilian Fall MD [address] [place] [address] PCP - General 10/01/11 02/13/21 documented as of this encounter
--- OUTSIDE RECORDS SUMMARY | 2024-07-11 11:17 | XMS_ITS | Encounter Summary ---
Author Organization [facility] [place] [address] Care Team Providers Care Structural Draftsman Name Role Phone Maximilian Fall MD Primary Care Provider Encounter Details Date Type Department Care Team (Late st Contact Info) Description 03/03/2012 Orders [place] [phone] Mica Gore APRN [facility] [place] [address] Ulcerative colitis (Primary Dx) Social History Tobacco [...] 9:00 AM EDT Office [place] [phone] Dion Barlow MD [facility] [place] [address] 09/01/2024 9:40 AM EDT Office Visit Cardiology at [address] [place] [address] Franky Shaver MD [facility] [place] [address] 09/01/2024 11:20 AM EDT Office Visit Dermatology at [facility] [address] [place] [address] Gómez Mercer MD [facility] DR [place] [address] 09/21/2024 2:45 PM EDT Office Visit [place] [phone] Trung Hoyos MD [facility] [place] [address] documented as of this encounter Procedures Procedure Name Priority Date/Time Associated Diagnosis Comments FLEXIBLE SIGMOIDOSCOPY Routine 2 1:15 PM EDT Ulcerative colitis documented in this encounter Results * FLEXIBLE SIGMOIDOSCOPY (03/16/2012 1:15 PM EDT) [facility] Signature FLEXIBLE SIGMOIDOSCOPY [facility] Endoscopy Patient Name: Brian Rodriguez ? Procedure Date: 03/16/2012 1:15 PM ? Date of : 1950 ? Age: 61 ? Order #: [id number] ? Procedure: ? Flexible Sigmoidoscopy Indications: ? pt with active UC, assess severity ? prior to entry in MTX study Providers: ? Enrico Tellez MD, April Augustine ? RONY Archibald, Kingsley Oneal, ? Account Manager Referring MD: ?Maximilian Fall MD Requesting Provider: [...] GENERAL SURGICAL ORD ERABLES Performing Organization Address City/State/[facility] Co de Phone Number PROVATION documented in this encounter Visit Diagnoses Diagnosis Ulcerative colitis- Primary Ulcerative colitis, unspecified documented in this encounter Care Teams Structural Draftsman Relationship Specialty Start Date End Date Maximilian Fall MD [address] [place] [address] PCP - General 10/01/11 02/13/21 documented as of this encounter
--- OUTSIDE RECORDS SUMMARY | 2024-07-11 11:17 | XMS_ITS | Encounter Summary ---
Author Organization [facility] Address [facility] [place] [address] Care Team Providers Care Geography Instructor Name Role Phone More Naylor MD Primary Care Provider [phone] Reason for Visit * Reason Comments Follow-up Encounter Details Date Type Department Care Team (Late st Contact Info) Description 03/06/2014 8:30 AM EDT Follow-[place] [address] Dion Barlow MD [facility] [place] [address] Ulcerative colitis, with rectal bleeding (Primary Dx) [...] ??? Ulcerative colitis Colonoscopy 04/08/10 (Dr. Gomes [facility]) - inflammation only within the rectum [...] sig (03/16/12) for screening for MERIT. Mild (nerique 1) colitis to 25 cm - rectum [...] or most commonly, upper respiratory infections; positive wbhg-dzjdzj-uwcjoklj DNA antibodies, and rarely a lupus-like syndrome; [...] CC: MORE NAYLOR MD [address] [place] [address] documented in this encounter Plan of Treatment Upcoming Encounters Date Type Department Care Team (Late st Contact Info) Description 08/15/2024 9:00 AM EDT Office Visit [place] [address] Dion Barlow MD [facility] [place] [address] 09/01/2024 9:40 AM EDT Office Visit Cardiology at [address] [phone] Franky Shaver MD [facility] [place] [address] 09/01/2024 11:20 AM EDT Office Visit Dermatology at [facility] [address] [place] [address] Gómez Mercer MD [facility] [place] [address] 09/21/2024 2:45 PM EDT Office Visit [facility] [place] [phone] Trung Hoyos MD [facility] [place] [address] documented as of this encounter Procedures Procedure [...] Urine Dipstick Clear Clear CERNER MILLENNIUM Specific [place] Urine Automated 1.019 1.002 - 1.030 CERNER [...] L Karthik Barlow MD URINE ORDERABLES CERNER SOV [employer]rapeuticsENNIUM * Differential, Automated (03/06/2014 9:39 AM EDT) Neutrophil % 64.8 34.0 - 71.0 % [facility] MILL[facility]UM Neutrophil Absolute 3.24 1.50 - 6.30 [...] Gran % 0.20 0.00 - 0.66 % CERNER MILLENNIUM Comment: Immature granulocytes(IG's)percentage and absolute count will include metamyelocytes, myelocytes, and promyelocytes. Blood smears from CBCs yielding IG's will be scanned manually for concordance. If this scan disagrees with the automated IG or if promyelocytes are noted, a manual differential will be performed. Immature Gran Absolute 0.01 0.00 - 0.05 x10(3)/mcL [facility] TIAGOENNIUM Blood specimen (specimen) 03/06/2014 9:39 AM EDT 03/06/2014 9:47 AM EDT L Karthik Barlow MD HEMATOLOGY ORDERABLE S [facility] * QuantiFERON-TB Gold (03/06/2014 9:39 AM EDT) Pathologist [facility] Quantiferon-TB Gold Negative Negative [facility] Comment: Nil (IU/mL)=0.03 TB Ag minus Nil [...] Lab L Karthik Barlow MD CHEMISTRY ORDERABLES [facility] * High Sensitivity CRP (03/06/2014 9:39 AM EDT) C-Reactive Protein High Sensitivity 1.7 mg/L CERNER [...] Karthik Barlow MD CHEMISTRY ORDERABLES DURGA FREDERICK * (ABNORMAL) CBC (with Diff) (03/06/2014 9:39 [...] Deviation 47.4(H) 35.0 - 46.0 fL DURGA COLBERTIUM RDW coefficient of variation 12.9 10.9 - 14.4 % DURGA COLBERTIUM Mean Platelet Volume 11.6 9.0 - 12.0 fL DURGA COLBERTIUM Blood specimen (specimen) 03/06/2014 9:39 AM EDT 03/06/2014 9:47 AM EDT Narrative Resulting Agency Comment Spec In Lab L Karthik Barlow MD HEMATOLOGY ORDERABLE S DURGA FREDERICK documented in this encounter Visit Diagnoses Diagnosis Ulcerative colitis, with rectal bleeding- Primary documented in this encounter Care Teams Geography Instructor Relationship Specialty Start Date End Date More Naylor MD [address] [place] [address] PCP - General 10/01/11 02/13/21 documented as of this encounter
--- OUTSIDE RECORDS SUMMARY | 2024-07-11 11:17 | XMS_ITS | Encounter Summary ---
Author Organization [facility] Address [facility] [place] [address] Care Team Providers Care Auto Body Technician Name Role Phone More Naylor MD Primary Care Provider [phone] Reason for Visit * Reason Comments Follow-up Encounter Details Date Type Department Care Team (Late st Contact Info) Description 09/20/2012 10:00 AM EDT Follow-[place] [address] Dion Barlow MD [facility] [place] [address] Ulcerative colitis (Primary Dx); Dyspepsia; UC (ulcerative [...] ??? Ulcerative colitis Colonoscopy 04/08/10 (Dr. Gomes [facility]) - inflammation only within the rectum and [...] has left-sided ulcerative colitis with persistently active ogob-xy-pgzkpojc symptoms andmildly active disease endoscopically. His colitis [...] CC: MORE NAYLOR MD [address] [place], [place] [address] documented in this encounter Plan of Treatment Upcoming Encounters Date Type Department Care Team (Late st Contact Info) Description 08/15/2024 9:00 AM EDT Office Visit [place] [phone] Dion Barlow MD [facility] [place] [address] 09/01/2024 9:40 AM EDT Office Visit Cardiology at [address] [address] Franky Shaver MD [facility] [place] [address] 09/01/2024 11:20 AM EDT Office Visit Dermatology at [address] [address] Gómez Mercer MD [facility] [place] [address] 09/21/2024 2:45 PM EDT Office Visit [facility] [place] [phone] Trung Hoyos MD [facility] [place] [address] documented as of this encounter Procedures Procedure [...] Absolute 0.02 0.00 - 0.05 x10(3)/mcL [facility] MILLENNIUM Blood specimen (specimen) 09/20/2012 11:17 AM EDT 09/20/2012 11:23 AM EDT L Karthik Barlow MD HEMATOLOGY ORDERABLE S Performing Organization Address [facility] Co de Phone Number DURGA FREDERICK * (ABNORMAL) TSH (09/20/2012 11:17 AM EDT) Thyroid Stimulating Hormone 4.77(H) 0.27 - 4.20 mcIU/mL DURGA COLBERTIUM Blood specimen (specimen) 09/20/2012 11:17 AM EDT 09/20/2012 11:23 AM EDT Narrative Resulting Agency Comment Spec In Lab L Karthik Barlow MD CHEMISTRY ORDERABLES Performing Organization Address [facility] Phone Number DURGA COLBERTIUM * Lipase (09/20/2012 11:17 AM EDT) Lipase 32 0 - 60 unit/L D[facility] COLBERTIUM Blood specimen (specimen) 09/20/2012 11:17 AM EDT 09/20/2012 11:23 AM EDT Narrative Resulting Agency Comment Spec In Lab L Karthik Barlow MD CHEMISTRY ORDERABLES Performing Organization Address [facility] Phone Number DURGA COLBERTIUM * High Sensitivity CRP (09/20/2012 11:17 AM EDT) C-Reactive Protein High Sensitivity 3.7 mg/L [facility] Comment: Interpretations: [...] Lab L Karthik Barlow MD CHEMISTRY ORDERABLES [facility] * (ABNORMAL) CMP w/fasting Glucose (09/20/2012 11:17 AM EDT) Glucose Fasting 110(H) 65 - 99 mg/dL [facility] Comment: ?Fasting* Glucose Interpretive Criteria Normal [...] of Diabetes Mellitus, Position Statement from the [place] [employer]. ??Diabetes Care, Volume 33, Supplement 1, Nov 2009 Blood Urea Nitrogen 13 10 - 20 mg/dL CERNER MILLENNIUM Creatinine 0.81 0.80 - 1.50 mg/dL CERNER MILLENNIUM Comment: Please note that the pediatric reference intervals supplied above were not validated at [facility]. Results from pediatric patients should be interpreted [...] DURGA FREDERICK * (ABNORMAL) CBC (with Diff) (09/20/2012 11:17 AM EDT) White Blood Cell 6.2 4.0 - 10.0 x10(3)/mc L CERNER MILLENNIUM Red Blood Cell 4.07(L) 4.63 - 6.08 x10(6)/mc L DURGA MILLENNIUM Hemoglobin 13.5(L) 13.7 - 17.5 gm/dL D[facility]GA COLBERTIUM Hematocrit 40.5 40.0 - 51.0 % CERNER [...] unspecified documented in this encounter Care Teams Auto Body Technician Relationship Specialty Start Date End Date More Naylor MD [address] [place] [address] PCP - General 10/01/11 02/13/21 documented as of this encounter
--- OUTSIDE RECORDS SUMMARY | 2024-07-11 11:17 | XMS_ITS | Encounter Summary ---
Author Organization [facility] Address [facility] [place] [address] Care Team Providers Care Jukebox Route Driver Name Role Phone Maximilian Fall MD Primary Care Provider [phone] Encounter Details Date Type Department Care Team (Late st Contact Info) Description 03/16/2012 2:30 PM EDT - 03/16/2012 3:30 PM EDT [place] [address] Enrico Tellez MD [facility] [place] [address] FLEXIBLE SIGMOIDOSCOPY (WRVU 0.84) Social History Tobacco [...] please contact your M. D. Please call [phone] BEFORE 5PM with any questions or concerns, AFTER 5PM call [phone] andask to speak to the Tank Cooper drug abuse resistance education officer. * Patient Instructions* Enrico Tellez MD - 03/16/2012 1:27 PM EDT Please see Recommendations in the Provation procedure report which is documented in the procedural note in E-DH. * Attachments The following attachments cannot be sent through Care Everywhere. * SIGMOIDOSCOPY: WHAT TO EXPECT AT HOME (BELARUSIAN) documented in this encounter Medications at Time of Discharge Medication Sig Dispensed Refills Start Date End Date predniSONE (DELTASONE) 10 mg tabletIndications:Ul cerative colitis Take 2 tablets by mouth daily. 120 tablet 0 03/16/2012 11/01/2013 polyethylene glycol-electrolytes (PEG 3350-ELECTROLYTES) 420 g solutionIndications: Ulcerative colitis Take 2,000 mLs by mouth. Please follow instructions per 's office for sigmoidoscopy prep 4000 mL 0 [...] 9:00 AM EDT Office [place] [address] Dion Barlow MD [facility] [place] [address] 09/01/2024 9:40 AM EDT Office Visit Cardiology at [address] [place] [address] Franky Shaver MD [facility] [address] 09/01/2024 11:20 AM EDT Office Visit Dermatology at [place] [address] [place] [address] Gómez [place]cer MD [facility] [place] [address] 09/21/2024 2:45 PM EDT Office Visit [facility] [place] [address] Trung Hoyos MD [facility] [place] [address] documented as of this encounter Procedures Procedure Name Priority Date/Time Associated Diagnosis Comments SURGICAL PATHOLOGY REPORT Routine 03/16/2012 4:52 PM EDT SPECIMEN TO PATHOLOGY Routine 03/16/2012 2:09 PM EDT FLEXIBLE SIGMOIDOSCOPY (WRVU 0.84) 03/16/2012 1:27 PM EDT study patient POCT GLUCOSE Routine 03/16/2012 1:16 PM EDT documented in this encounter Results * SURGICAL PATHOLOGY REPORT (03/16/2012 4:52 PM EDT) Surgical Pathology Report ? [facility] ? Provider: ?? ENRICO TELLEZ ?Pt. Name: ?? NAYA RODRIGUEZ ? Acc #: ?[id number] ?Pt. ? Col Date: ?? 03/16/2012 ? [...] Clinical History/Diagnosis: ? Patient with mild proctitis JO-ANNGIOVANNI ORDOÑEZTADEOIUM 03/16/2012 4:52 PM EDT Enrico Tellez MD PATHOLOGY/CYTOLOGY O CEE Performing Organization Address [facility] de Phone Number DURGA FREDERICK * Specimen to Pathology (surgical or derm) (03/16/2012 2:09 PM EDT) AP Specimen 03/16/2012 2:09 PM EDT 03/16/2012 2:09 PM EDT Narrative DURGA TIAGOTADEOIUM - 03/16/2012 2:09 PM EDT Specimen requisition ordered. ??Separate Pathology report to follow Enrico Tellez MD PATHOLOGY/CYTOLOGY O CEE Performing Organization Address [facility] de Phone Number DURGA FREDERICK * POCT GLUCOSE LAB USE ONLY (03/16/2012 1:16 PM EDT) Glucose, POC 116 60 - 199 mg/dL DURGA TIAGOTADEOIUM Comment: Supplemental ranges: <110 mg/dL before meals <200 mg/dL all other times of the day Blood specimen (specimen) 03/16/2012 1:16 PM EDT 03/16/2012 1:16 PM EDT Enrico Tellez MD POINT OF CARE TEST O CEE Performing Organization Address [facility] de Phone Number DURGA FREDERICK [...] infusion 30 mL/hr, Intravenous, CONTINUOUS, Starting on e 03/16/12 at 1315, Until 03/16/12 at 1854, Endoscopy (Day of Procedure) New Bag 03/16/2012 1:00 PM EDT 30 mL/hr 30 mL/hr documented in this encounter Active and Recently Administered Medications Times are shown in EDT. Continuous Medication Order 03/14/2012 03/15/2012 03/16/2012 sodium chloride 0.9% infusion (CANCELED) 30 mL/hr, Intravenous, CONTINUOUS, Starting on e 03/16/12 at 1315, Until 03/16/12 at 1854, [...] Routine 1334 (Given - Provid er: April [place], RN)1337 (Given - Provider: April Archibald RN)1347 (Given - Provider: April Archibald RN) documented in this encounter Care Teams Jukebox Route Driver Relationship Specialty Start Date End Date Maximilian Fall MD [address] [place] [address] PCP - General 10/01/11 02/13/21 documented as of this encounter
--- OUTSIDE RECORDS SUMMARY | 2024-07-11 11:17 | XMS_ITS | Encounter Summary ---
Author Organization [facility] Address [facility] [place] [address] Care Team Providers Care Deckhand Name Role Phone Maximilian Fall MD Primary Care Provider [phone] Encounter Details Date Type Department Care Team (Late st Contact Info) Description 03/02/2012 External [place] [address] Dion Barlow MD [facility] [place] [address] Social History Tobacco Use Types Packs/Day Years [...] 9:00 AM EDT Office [place] [phone] Dion Barlow MD [facility] [place] [address] 09/01/2024 9:40 AM EDT Office Visit Cardiology at [address] [place] [phone] Franky Shaver MD [facility] [place] [address] 09/01/2024 11:20 AM EDT Office Visit Dermatology at [facility] [address] [place] [address] Gómez [place] MD [facility] DR EDD[place] [address] 09/21/2024 2:45 PM EDT Office Visit Pain and Spine Center at [facility] [place] [phone] Trung Hoyos MD [facility] [place] [address] documented as of this encounter Procedures Procedure Name Priority Date/Time Associated Diagnosis Comments EXTERNAL LAB RESULTS Routine 03/02/2012 documented in this encounter Results * External Lab Results (03/02/2012) Blood specimen (specimen) 03/02/2012 L Karthik Barlow MD CHEMISTRY ORDERABLES documented in this encounter Visit Diagnoses Not on filedocumented in this encounter Care Teams Deckhand Relationship Specialty Start Date End Date Maximilian Fall MD [facility] [address] [facility] 1 [place] [address] PCP - General 10/01/11 02/13/21 documented as of this encounter
--- OUTSIDE RECORDS SUMMARY | 2024-07-11 11:17 | XMS_ITS | Encounter Summary ---
Author Organization [facility] [place] [address] Care Team Providers Care Radio News Writer Name Role Phone Maximilian Fall MD Primary Care Provider [phone] Reason for Visit * Reason Onset Date Comments Medication Refill 11/22/2012 Encounter Details Date Type Department Care Team (Late st Contact Info) Description 11/22/2012 Refill [place] [address] Dion Barlow MD [facility] [place] [address] Ulcerative colitis (Primary Dx) Social History Tobacco [...] 9:00 AM EDT Office Visit [place]enterology [place] [phone] Dion Barlow MD [facility] [place] [address] 09/01/2024 9:40 AM EDT Office Visit Cardiology at [address] [place] [address] Franky Shaver MD [facility] [place] [address] 09/01/2024 11:20 AM EDT Office Visit Dermatology at [facility] [address] [place] [address] Gómez Mercer MD [facility] DR EDDIE [place] [address] 09/21/2024 2:45 PM EDT Office Visit Pain and Spine Center at [facility] [place] [address] Trung Hoyos MD [facility] [place] [address] documented as of this encounter Visit Diagnoses Diagnosis Ulcerative colitis- Primary Ulcerative colitis, unspecified documented in this encounter Care Teams Radio News Writer Relationship Specialty Start Date End Date Maximilian Fall MD [address] [facility] 1 [place] [address] PCP - General 10/01/11 02/13/21 documented as of this encounter
--- OUTSIDE RECORDS SUMMARY | 2024-07-11 11:17 | XMS_ITS | Encounter Summary ---
Author Organization [facility] [place] [address] Care Team Providers Care Radio Station Operator Name Role Phone Maximilian Fall MD Primary Care Provider [phone] Encounter Details Date Type Department Care Team (Late st Contact Info) Description 09/30/2012 Telephone [place] [phone] Lilliana Reece RN Social History Tobacco Use [...] EDT Office [place] [address] Dion Barlow MD [facility] [place] [address] 09/01/2024 9:40 AM EDT Office Visit Cardiology at [address] [place] [address] Franky Shaver MD [facility] [place] [address] 09/01/2024 11:20 AM EDT Office Visit Dermatology at [facility] [address] [place] [address] Gómez Mercer MD [facility] [place] [address] 09/21/2024 2:45 PM EDT Office Visit [place] [address] Trung Hoyos MD [facility] [place] [address] documented as of this encounter Visit Diagnoses Not on filedocumented in this encounter Care Teams Radio Station Operator Relationship Specialty Start Date End Date Maximilian Fall MD [address] [facility] 1 [place] [address] PCP - General 10/01/11 02/13/21 documented as of this encounter
--- OUTSIDE RECORDS SUMMARY | 2024-07-11 11:17 | XMS_ITS | Encounter Summary ---
Author Organization [facility] Address [facility] [place] [address] Care Team Providers Care Dual Rate Dealer Name Role Phone Maximilian Fall MD Primary Care Provider [phone] Encounter Details Date Type Department Care Team (Latest Contact Info) Description 03/16/2012 12:32 PM EDT - 03/16/2012 3:00 PM EDT Hospital Encounter [place] [address] Enrico Tellez MD [facility] [place] [address] Discharge Disposition: Home Social History Tobacco Use [...] please contact your M. D. Please call [phone] BEFORE 5PM with any questions or concerns, AFTER 5PM call [phone] andask to speak to the Glassware Maker Demonstrator cable installation technician. * Patient Instructions* Enrico Tellez MD - 03/16/2012 1:27 PM EDT Please see Recommendations in the Provation procedure report which is documented in the procedural note in E-DH. * Attachments The following attachments cannot be sent through Care Everywhere. * SIGMOIDOSCOPY: WHAT TO EXPECT AT HOME (TONGAN) documented in this encounter Medications at Time [...] 9:00 AM EDT Office [place] [address] Dion Barlow MD [facility] [place] [address] 09/01/2024 9:40 AM EDT Office Visit Cardiology at [address] [place] [address] Franky Shaver MD [facility] [place] [address] 09/01/2024 11:20 AM EDT Office Visit Dermatology at [facility] [address] [place] [address] Gómez Mercer MD [facility] [place] [address] 09/21/2024 2:45 PM EDT Office Visit [place] [address] Trung Hoyos MD [facility] [place] [address] documented as of this encounter Procedures Procedure Name Priority Date/Time Associated Diagnosis Comments SURGICAL PATHOLOGY REPORT Routine 03/16/2012 4:52 PM EDT SPECIMEN TO PATHOLOGY Routine 03/16/2012 2:09 PM EDT FLEXIBLE SIGMOIDOSCOPY (WRVU 0.84) 03/16/2012 1:27 PM EDT study patient POCT GLUCOSE Routine 03/16/2012 1:16 PM EDT documented in this encounter Results * SURGICAL PATHOLOGY REPORT (03/16/2012 4:52 PM EDT) Surgical Pathology Report ? [facility] ? Provider: ?? ENRICO TELLEZ ?Pt. Name: ?? SHANTNAYA ? Acc #: ?[id number] ?Pt. ? Col Date: ?? 03/16/2012 ? [...] History/Diagnosis: ? Patient with mild proctitis CERGIOVANNI ORDOÑEZENNIUM 03/16/2012 4:52 PM EDT Enrico Tellez MD PATHOLOGY/CYTOLOGY O CEE Performing Organization Address [facility] de Phone Number DURGA FREDERICK * Specimen to Pathology (surgical or derm) (03/16/2012 2:09 PM EDT) AP Specimen 03/16/2012 2:09 PM EDT 03/16/2012 2:09 PM EDT Narrative DURGA TIAGOENNIUM - 03/16/2012 2:09 PM EDT Specimen requisition ordered. ??Separate Pathology report to follow Enrico Tellez MD PATHOLOGY/CYTOLOGY O CEE Performing Organization Address [facility] de Phone Number DURGA FREDERICK * POCT GLUCOSE LAB USE ONLY (03/16/2012 1:16 PM EDT) Glucose, POC 116 60 - 199 mg/dL JO-ANNGIOVANNI ORDOÑEZENNIUM Comment: Supplemental ranges: <110 mg/dL before meals <200 mg/dL all other times of the day Blood specimen (specimen) 03/16/2012 1:16 PM EDT 03/16/2012 1:16 PM EDT Enrico Tellez MD POINT OF CARE TEST O CEE Performing Organization Address [facility] de Phone Number DURGA FREDERICK documented in [...] RN) documented in this encounter Care Teams Dual Rate Dealer Relationship Specialty Start Date End Date Maximilian Fall MD [address] [place] [address] PCP - General 10/01/11 02/13/21 documented as of this encounter
--- OUTSIDE RECORDS SUMMARY | 2024-07-11 11:17 | XMS_ITS | Encounter Summary ---
Author Organization [facility] Address [facility] [place] [address] Care Team Providers Care Ultrasonic Cleaner Name Role Phone Maximilian Fall MD Primary Care Provider [phone] Reason for Visit * Reason Comments Follow-up Encounter Details Date Type Department Care Team (Late st Contact Info) Description 03/13/2015 1:00 PM EDT [place] [address] Dion Barlow MD [facility] [place] [address] Ulcerative colitis, other complication; Lethargy; Other ulcerative [...] Overview Note: ?? Colonoscopy 04/08/10 (Dr. Gomes [facility]) - inflammation only within the rectum and sigmoid; extent of the exam was to the hepatic flexure; biopsies proximal to the sigmoid nl ?? Repeat exam 11/27/11 ([facility]): mildly active colitis in the [...] 6 months or sooner. Davina Barlow MD Flat Knittersystem support technician Section of Gastroenterology [place] [address] documented in this encounter Plan of Treatment Upcoming Encounters Date Type Department Care Team (Late st Contact Info) Description 08/15/2024 9:00 AM EDT Office [place] [address] Dion Barlow MD [facility] [place] [address] 09/01/2024 9:40 AM EDT Office Visit Cardiology at [address] [address] Franky Shaver MD [facility] [place] [address] 09/01/2024 11:20 AM EDT Office Visit Dermatology at [address] [address] Gómez [place] MD [facility] DR [place] [address] 09/21/2024 2:45 PM EDT Office Visit [place] [address] Trung Hoyos MD [facility] [place] [address] Scheduled Orders Name Type Priority Associated Diagnoses [...] MD HEMATOLOGY ORDERABLE S Performing Organization Address [facility]/State/ZIP Co de Phone Number CERGIOVANNI ORDOÑEZENNIUM * (ABNORMAL) Hemogram (03/13/2015 2:00 PM EDT) [...] Karthik Barlow MD HEMATOLOGY ORDERABLE S DURGA ORDOÑEZENNIUM * High Sensitivity CRP (03/13/2015 2:00 PM [...] Barlow MD CHEMISTRY ORDERABLES Performing Organization Address [facility] Co de Phone Number DURGA COLBERTIUM * Hepatic Function Panel (03/13/2015 2:00 PM [...] Barlow MD CHEMISTRY ORDERABLES Performing Organization Address [facility]/ZIP Co de Phone Number JO-ANNGIOVANNI ORDOÑEZENNIUM * (ABNORMAL) TSH (03/13/2015 2:00 PM [...] intervals supplied above were not validated at [facility]. Results from pediatric patients should [...] the following links into your internet browser. [email or web address] Blood specimen (specimen) 03/13/2015 2:00 PM EDT 03/13/2015 2:14 PM EDT Narrative Resulting Agency Comment Spec In Lab L Karthik Barlow MD CHEMISTRY ORDERABLES DURGA FREDERICK documented in this encounter Visit Diagnoses Diagnosis Ulcerative colitis, other complication Lethargy Other malaise and fatigue Other ulcerative colitis documented in this encounter Care Teams Ultrasonic Cleaner Relationship Specialty Start Date End Date Maximilian Fall MD [address] [place] [address] PCP - General 10/01/11 02/13/21 documented as of this encounter
--- OUTSIDE RECORDS SUMMARY | 2024-07-11 11:17 | XMS_ITS | Encounter Summary ---
Author Organization [facility] Address [facility] [place] [address] Care Team Providers Care Cinder Crew Worker Name Role Phone Maximilian Fall MD Primary Care Provider [phone] Encounter Details Date Type Department Care Team (Late st Contact Info) Description 03/16/2012 Orders [place] [address] Dion Barlow MD [facility] [place] [address] Ulcerative colitis (Primary Dx) Social History Tobacco [...] 9:00 AM EDT Office [place] [phone] Dion Barlow MD [facility] [place] [address] 09/01/2024 9:40 AM EDT Office Visit Cardiology at [address] [address] Franky Shaver MD [facility] [place] [address] 09/01/2024 11:20 AM EDT Office Visit Dermatology at [facility] [address] [place] [address] Gómez [place]cer MD [facility] DR EDDIE [place] [address] 09/21/2024 2:45 PM EDT Office Visit [place] [address] Trung Hoyos MD [facility] [place] [address] documented as of this encounter Visit Diagnoses Diagnosis Ulcerative colitis- Primary Ulcerative colitis, unspecified documented in this encounter Care Teams Cinder Crew Worker Relationship Specialty Start Date End Date Maximilian Fall MD [address] [facility] [place] [address] PCP - General 10/01/11 02/13/21 documented as of this encounter
--- OUTSIDE RECORDS SUMMARY | 2024-07-11 11:17 | XMS_ITS | Encounter Summary ---
Author Organization [facility] Address [facility] [place] [address] Care Team Providers Care Boarding Specialist Name Role Phone Maximilian Fall MD Primary Care Provider [phone] Encounter Details Date Type Department Care Team (Late st Contact Info) Description 03/02/2012 External Results [place] [address] Dion Barlow MD [facility] [place] [address] Social History Tobacco Use Types Packs/Day Years [...] AM EDT Office Visit [place] [phone] Dion Barlow MD [facility] [place] [address] 09/01/2024 9:40 AM EDT Office Visit Cardiology at [address] [place] [address] Franky Shaver MD [facility] [place] [address] 09/01/2024 11:20 AM EDT Office Visit Dermatology at [facility] [address] [place] [address] Gómez [place] MD [facility] DR [place] [address] 09/21/2024 2:45 PM EDT Office Visit Pain and Spine Center at [facility] [place] [address] Trung Hoyos MD [facility] [place] [address] documented as of this encounter Procedures Procedure Name Priority Date/Time Associated Diagnosis Comments EXTERNAL LAB RESULTS Routine 03/04/2012 documented in this encounter Results * External Lab Results (03/04/2012) Blood specimen (specimen) L Karthik Barlow MD CHEMISTRY ORDERABLES documented in this encounter Visit Diagnoses Not on filedocumented in this encounter Care Teams Boarding Specialist Relationship Specialty Start Date End Date Maximilian Fall MD [facility] [address] [facility] 1 [place] [address] PCP - General 10/01/11 02/13/21 documented as of this encounter
--- OUTSIDE RECORDS SUMMARY | 2024-07-11 11:17 | XMS_ITS | Encounter Summary ---
Author Organization [facility] Address [facility] [place] [address] Care Team Providers Care Vehicle Delivery Worker Name Role Phone Maximilian Fall MD Primary Care Provider [phone] Encounter Details Date Type Department Care Team (Latest Contact Info) Description 07/13/2014 1:25 PM EDT - 07/13/2014 4:30 PM EDT Hospital Encounter [place] [address] Dion Osullivan MD [facility] [place] [address] Discharge Disposition: Home Social History Tobacco Use [...] - 07/13/2014 4:14 PM EDT Please call [phone], before 5pm with problems, questions or concerns, after 5pm call the Hospital at [phone] and ask to speak to the Felt Hat Steamer antichecking iron worker and the batch roller operator will contactthat person for you. Discharge [...] through Care Everywhere. * COLONOSCOPY : POSTOP (YAKUT) documented in this encounter Medications at Time of Discharge Medication Sig Dispensed Refills Start Date End Date glipiZIDE (GLUCOTROL) 10 mg 24 hr tablet Take 10 mg by mouth daily. folic acid (FOLVITE) 1 mg tabletIndications:Ulcera tive colitis Take 1 tablet by mouth daily. 90 tablet 3 11/22/2012 sulfaSALAzine (AZULFIDINE) 500 mg tablet Take 2,000 [...] Osullivan MD - 07/13/2014 3:57 PM EDT [facility] Operative Note Patient Name: Naya Rodriguez : [id number] MR#: [id number] Case Date: 07/13/2014 Surgeon: Surgeon(s) and Role: * Dion Osullivan MD - Primary Preoperative diagnosis: UC, restage disease. (local)(sedate well) Postoperative diagnosis: * No post-op diagnosis entered * Procedure(s): COLONOSCOPY, DIAGNOSTIC Please see the Provation procedure report in the Procedures tab in eDH. * Miscellaneous - Provider Scanning - 07/13/2014 2:52 PM EDT documented in this encounter Plan of Treatment Upcoming Encounters Date Type Department Care Team (Late st Contact Info) Description 08/15/2024 9:00 AM EDT Office Visit [place] [address] Dion Osullivan MD [facility] [place] [address] 09/01/2024 9:40 AM EDT Office Visit Cardiology at [address] [place] [address] Franky Shaver MD [facility] [place] [address] 09/01/2024 11:20 AM EDT Office Visit Dermatology at [facility] [address] [place] [address] Gómez Mercer MD [facility] [place] [address] 09/21/2024 2:45 PM EDT Office Visit [facility] [place] [address] Trung Hoyos MD [facility] [place] [address] documented as of this encounter Procedures Procedure [...] (07/13/2014 3:58 PM EDT) Final Diagnosis ? [facility] ? Provider: ?? Dion OSULLIVAN ?Pt. Name: ?? NAYA RODRIGUEZ ? Acc #: ?[id number] ?Pt. ? Col Date: ?? 07/13/2014 ? [...] - Mucosal biopsies - R colon ? [facility] ? Provider: ?? Dion OSULLIVAN ?Pt. Name: ?? NAYA RODRIGUEZ ? Acc #: ?[id number] ?Pt. ? Col Date: ?? 07/13/2014 ? /Sex: ?1950,(64 years),Male ? Rec Date: ?? 07/13/2014 ? LOC: ?4T ? SURGICAL PATHOLOGY ? Clinical History: ? 64-year-old with a history of left sided UC ? Clinical Diagnosis: ? Same 07/14/2014 4:08 PM EDT [facility] GI Biopsy 07/13/2014 3:58 PM EDT 07/13/2014 3:58 PM EDT GI Biopsy 07/13/2014 3:58 PM EDT 07/13/2014 3:58 PM EDT GI Biopsy 07/13/2014 3:58 PM EDT 07/13/2014 3:58 PM EDT L Karthik Osullivan MD PATHOLOGY/CYTOLOGY O CEE [place] [address] * Specimen to Pathology (surgical or derm) (07/13/2014 3:58 PM EDT) AP Specimen 07/13/2014 3:58 PM EDT 07/13/2014 3:58 PM EDT Narrative JO-ANNGIOVANNI COLBERTIUM - 07/13/2014 3:58 PM EDT Specimen requisition ordered. ??Separate Pathology report to follow L Karthik Osullivan MD PATHOLOGY/CYTOLOGY O CEE Performing Organization Address [facility] Co de Phone Number DURGA FREDERICK * Specimen to Pathology (surgical or derm) (07/13/2014 3:58 PM EDT) AP Specimen 07/13/2014 3:58 PM EDT 07/13/2014 3:58 PM EDT Narrative DURGA COLBERTIUM - 07/13/2014 3:58 PM EDT Specimen requisition ordered. ??Separate Pathology report to follow L Karthik Osullivan MD PATHOLOGY/CYTOLOGY O CEE Performing Organization Address City/[facility]/ZIP Co de Phone Number DURGA FREDERICK * Specimen to Pathology (surgical or derm) (07/13/2014 3:58 PM EDT) AP Specimen 07/13/2014 3:58 PM EDT 07/13/2014 3:58 PM EDT Narrative DURGA COLBERTIUM - 07/13/2014 3:58 PM EDT Specimen requisition ordered. ??Separate Pathology report to follow L Karthik Osullivan MD PATHOLOGY/CYTOLOGY O RDMELISSA DURGA FREDERICK * COLONOSCOPY (07/13/2014 2:51 PM EDT) Pathologist [facility] COLONOSCOPY [facility] Endoscopy Patient Name: Naya Rodriguez ? Procedure Date: 07/13/2014 2:51 PM ? Date of : 1950 ? Age: 64 ? Order #: [id number] ? Procedure: ? Colonoscopy Indications: ? Follow-up of left-sided chronic ? ulcerative colitis Providers: ? Davina Osullivan MD, Emily Quinn, ? RN, Luna Connors, RONY, Cam Ghosh ? Doug, Assistant Professor Referring MD: ?Maximilian Fall MD Medicines: ? [...] Glucose, POC 167 60 - 199 mg/dL [facility] Comment: Supplemental ranges: <140 mg/dL before meals <180 mg/dL all other times of the day Blood specimen (specimen) 07/13/2014 1:59 PM EDT 07/13/2014 1:59 PM EDT L Karthik Osullivan MD POINT OF CARE TEST O RDERABLES [facility] documented in this encounter Visit Diagnoses Not [...] Luna Connors RN)1530 (Given - Provider: Luna Connors, RN - Comment: pt uncomfortable)1540 (Given - Provider: Luna Connors RN - Comment: pt uncomfortable) midazolam (PF) (VERSED) 1 mg/mL injection (CANCELED) ONCE PRN, Starting on Tresa 07/13/14 at 1459, Until Tresa 07/13/14 at 1636, Sleep, Intra-Operative (Intra-Procedure), Routine 1459 (Given - Provid er: Emily Quinn, RONY)1502 (Given - Provider: Emily Quinn, RN)1520 (Given - Provider: Luna Connors RN - Comment: continuing sedation)1524 (Given - Provider: Luna Connors RN - Comment: continuing sedation)1528 (Given - Provider: Luna Connors RN - Comment: pt uncomfortable)1532 (Given - Provider: Luna Connors RN - Comment: pt uncomfortable)1540 (Given - Provider: Luna Connors RN - Comment: pt uncomfortable) documented in this encounter Care Teams Vehicle Delivery Worker Relationship Specialty Start Date End Date Maximilian Fall MD [address] [place] [address] PCP - General 10/01/11 02/13/21 documented as of this encounter
--- OUTSIDE RECORDS SUMMARY | 2024-07-11 11:17 | XMS_ITS | Encounter Summary ---
Author Organization [facility] Address [facility] [place] [address] Care Team Providers Care Testing Shaking Shipping Name Role Phone More Naylor MD Primary Care Provider [phone] Reason for Visit * Reason Comments Follow-up Encounter Details Date Type Department Care Team (Late st Contact Info) Description 04/02/2012 12:30 PM EDT Follow-[place] [address] Marcelle Weinberg, JAZMINE [facility] [place] [address] UC (ulcerative colitis) (Primary Dx) Discharge Disposition: [...] ??? Ulcerative colitis Colonoscopy 04/08/10 (Dr. Gomes [facility]) - inflammation only within the rectum and sigmoid; extent of the exam was to the hepatic flexure; biopsies proximal to the sigmoid nl Repeat exam 11/27/11 ([facility] mildly active colitis in the sigmoid colon [...] seen. CR-PX 03/17/12 AAS 03/17/12 Verified by: Joana Soler MD Pathologist (Electronic Signature) Assessment and Plan: Patient [...] CC: MORE NAYLOR MD [address] [facility] [address] documented in this encounter Plan of Treatment Upcoming Encounters Date Type Department Care Team (Late st Contact Info) Description 08/15/2024 9:00 AM EDT Office [place] [phone] Dion Barlow MD [facility] [place] [address] 09/01/2024 9:40 AM EDT Office Visit Cardiology at [address] [phone] Franky Shaver MD [facility] [place] [address] 09/01/2024 11:20 AM EDT Office Visit Dermatology at [facility] [address] [place] [address] Gómez Mercer MD [facility] DR [place] [address] 09/21/2024 2:45 PM EDT Office Visit [place] [address] Trung Hoyos MD [facility] [place] [address] documented as of this encounter Procedures Procedure [...] MD CHEMISTRY ORDERABLES CERNER TIAGOENNIUM * (ABNORMAL) DIFFERENTIAL, AUTOMATED (04/02/2012 1:39 PM [...] MD HEMATOLOGY ORDERABLE S Performing Organization Address City/[facility]/ZIP Co de Phone Number DURGA FREDERICK * [...] CHEMISTRY ORDERABLES Performing Organization Address [facility] de Phone Number [facility] * Amylase (04/02/2012 1:39 PM EDT) Amylase 32 28 - 100 unit/L CERNER MILLENNIUM Blood specimen (specimen) 04/02/2012 1:39 PM EDT 04/02/2012 1:48 PM EDT Narrative Resulting Agency Comment Spec In Lab L Karthik Barlow MD CHEMISTRY ORDERABLES Performing Organization Address [facility] Phone Number [facility] * High Sensitivity CRP (04/02/2012 1:39 PM [...] CHEMISTRY ORDERABLES Performing Organization Address [facility] Number [facility] * Sedimentation rate (04/02/2012 1:39 PM EDT) Sedimentation Rate Automated 12 0 - 15 mm/hr [facility] Blood specimen (specimen) 04/02/2012 1:39 PM EDT 04/02/2012 1:48 PM EDT Narrative Resulting Agency Comment Spec In Lab L Karthik Barlow MD HEMATOLOGY ORDERABLE S Performing Organization Address [facility] Number [facility] * (ABNORMAL) CMP w/fasting Glucose (04/02/2012 1:39 PM EDT) Glucose Fasting 158(H) 65 - 99 mg/dL [facility] Comment: ?Fasting* Glucose Interpretive Criteria Normal [...] of Diabetes Mellitus, Position Statement from the [place] [employer]. ??Diabetes Care, Volume 33, Supplement [...] Karthik Barlow MD CHEMISTRY ORDERABLES [facility] * (ABNORMAL) CBC (with Diff) (04/02/2012 1:39 [...] Platelet Volume 11.1 9.0 - 12.0 fL CERNER MILLENNIUM Blood specimen (specimen) 04/02/2012 1:39 PM EDT 04/02/2012 1:48 PM EDT Narrative Resulting Agency Comment Spec In Lab L Karthik Barlow MD HEMATOLOGY ORDERABLE S DURGA FREDERICK documented in this encounter Visit Diagnoses Diagnosis UC (ulcerative colitis)- Primary Ulcerative colitis, unspecified documented in this encounter Care Teams Testing Shaking Shipping Relationship Specialty Start Date End Date More Naylor MD [address] [place] [address] PCP - General 10/01/11 02/13/21 documented as of this encounter
--- OUTSIDE RECORDS SUMMARY | 2024-07-11 11:17 | XMS_ITS | Encounter Summary ---
Author Organization [facility] Address [facility] [place] [address] Care Team Providers Care Personal Banking Assistant Name Role Phone Maximilian Fall MD Primary Care Provider [phone] Encounter Details Date Type Department Care Team (Late st Contact Info) Description 07/13/2014 2:30 PM EDT - 07/13/2014 3:30 PM EDT [place] [address] Dion Osullivan MD [facility] [place] [address] COLONOSCOPY, DIAGNOSTIC (WRVU 3.26) Social History Tobacco [...] - 07/13/2014 4:14 PM EDT Please call [phone], before 5pm with problems, questions or concerns, after 5pm call the Hospital at [phone] and ask to speak to the Hearing Aid Mechanic auto parts professional and the buckshot swage operator will contactthat person for you. Discharge [...] through Care Everywhere. * COLONOSCOPY : POSTOP (WOLOF) documented in this encounter Medications at [...] - 07/13/2014 3:57 PM EDT [facility] Operative Note Patient Name: Naya Rodriguez : [id number] MR#: [id number] Case Date: 07/13/2014 Surgeon: Surgeon(s) and Role: [...] 9:00 AM EDT Office [place] [address] Dion Osullivan MD [facility] [place] [address] 09/01/2024 9:40 AM EDT Office Visit Cardiology at [address] [place] [address] Franky Shaver MD [facility] [place] [address] 09/01/2024 11:20 AM EDT Office Visit Dermatology at [facility] [address] [place] [address] Gómez Mercer MD [facility] [place] [address] 09/21/2024 2:45 PM EDT Office Visit [place] [phone] Trung Hoyos MD [facility] [place] [address] documented as of this encounter Procedures Procedure [...] (07/13/2014 3:58 PM EDT) Final Diagnosis ? [facility] ? Provider: ?? Dion OSULLIVAN ?Pt. Name: ?? NAYA RODRIGUEZ ? Acc #: ?[id number] ?Pt. ? Col Date: ?? 07/13/2014 ? [...] ? JRP ? 07/14/14 Verified by: ? Fam Britt MD ? Pathologist ? (Electronic Signature) ? [...] - Mucosal biopsies - R colon ? [facility] ? Provider: ?? Dion OSULLIVAN ?Pt. Name: ?? NAYA RODRIGUEZ ? Acc #: ?[id number] ?Pt. ? Col Date: ?? 07/13/2014 ? /Sex: ?1950,(64 years),Male ? Rec Date: ?? 07/13/2014 ? LOC: ?4T ? SURGICAL PATHOLOGY ? Clinical History: ? 64-year-old with a history of left sided UC ? Clinical Diagnosis: ? Same 07/14/2014 4:[address] [facility] GI Biopsy 07/13/2014 3:58 PM EDT 07/13/2014 3:58 PM EDT GI Biopsy 07/13/2014 3:58 PM EDT 07/13/2014 3:58 PM EDT GI Biopsy 07/13/2014 3:58 PM EDT 07/13/2014 3:58 PM EDT L Karthik Osullivan MD PATHOLOGY/CYTOLOGY O RDMELISSA Performing Organization Address City/[facility]/ZIP Co de Phone Number [place] [address] * Specimen to Pathology (surgical or derm) (07/13/2014 3:58 PM EDT) AP Specimen 07/13/2014 3:58 PM EDT 07/13/2014 3:58 PM EDT Narrative JO-ANNGIOVANNI COLBERTIUM - 07/13/2014 3:58 PM EDT Specimen requisition ordered. ??Separate Pathology report to follow L Karthik Osullivan MD PATHOLOGY/CYTOLOGY O RDMELISSA Performing Organization Address [facility] Co de Phone Number DURGA FREDERICK * Specimen to Pathology (surgical or derm) (07/13/2014 3:58 PM EDT) AP Specimen 07/13/2014 3:58 PM EDT 07/13/2014 3:58 PM EDT Narrative JO-ANNGIOVANNI COLBERTIUM - 07/13/2014 3:58 PM EDT Specimen requisition ordered. ??Separate Pathology report to follow L Karthik Osullivan MD PATHOLOGY/CYTOLOGY O CEE Performing Organization Address [facility] Co de Phone Number DURGA FREDERICK * Specimen to Pathology (surgical or derm) (07/13/2014 3:58 PM EDT) AP Specimen 07/13/2014 3:58 PM EDT 07/13/2014 3:58 PM EDT Narrative DURGA COLBERTIUM - 07/13/2014 3:58 PM EDT Specimen requisition ordered. ??Separate Pathology report to follow L Karthik Osullivan MD PATHOLOGY/CYTOLOGY O RDERAOMAR Performing Organization Address City/[facility] Co de Phone Number DURGA FREDERICK * COLONOSCOPY (07/13/2014 2:51 PM EDT) COLONOSCOPY [facility] Endoscopy Patient Name: Naya Rodriguez ? Procedure Date: 07/13/2014 2:51 PM ? Date of : 1950 ? Age: 64 ? Order #: [id number] ? Procedure: ? Colonoscopy Indications: ? Follow-up of left-sided chronic ? ulcerative colitis Providers: ? Davina Osullivan MD, Emily Quinn, ? RN, Luna Connors RN, Cam Ashley. ? Doug, Rubber Curer Referring MD: ?Maximilian Fall MD Medicines: ? [...] Glucose, POC 167 60 - 199 mg/dL [facility] Comment: Supplemental ranges: <140 mg/dL before meals <180 mg/dL all other times of the day Blood specimen (specimen) 07/13/2014 1:59 PM EDT 07/13/2014 1:59 PM EDT L Karthik Osullivan MD POINT OF CARE TEST O RDERABLES Performing Organization Address City/State/[facility] Co al Phone Number [facility] documented in this encounter Visit Diagnoses [...] uncomfortable) documented in this encounter Care Teams Personal Banking Assistant Relationship Specialty Start Date End Date Maximilian Fall MD [address] [place] [address] PCP - General 10/01/11 02/13/21 documented as of this encounter
--- OUTSIDE RECORDS SUMMARY | 2024-07-11 11:17 | XMS_ITS | Encounter Summary ---
Author Organization [facility] Address [facility] [place] [address] Care Team Providers Care Tunnel Heading Inspector Name Role Phone Maximilian Fall MD Primary Care Provider [phone] Reason for Visit * Reason Onset Date Comments Medication Refill 11/03/2013 Encounter Details Date Type Department Care Team (Late st Contact Info) Description 11/03/2013 [place] [address] Dion Barlow MD [facility] [place] [address] Social History Tobacco Use Types Packs/Day Years [...] with Dr Barlow and it should be [id number] take 2 tabs twice a day or 2GM documented in this encounter Plan of Treatment Upcoming Encounters Date Type Department Care Team (Late st Contact Info) Description 08/15/2024 9:00 AM EDT Office [place] [address] Dion Barlow MD [facility] [place] [address] 09/01/2024 9:40 AM EDT Office Visit Cardiology at [address] [place] [address] Franky Shaver MD [facility] [place] [address] 09/01/2024 11:20 AM EDT Office Visit Dermatology at [place] [address] [place] [address] Gómez Mercer MD [facility] DR EDD[place] [address] 09/21/2024 2:45 PM EDT Office Visit [place] [address] Trung Hoyos MD [facility] [place] [address] documented as of this encounter Visit Diagnoses Not on filedocumented in this encounter Care Teams Tunnel Heading Inspector Relationship Specialty Start Date End Date Maximilian Fall MD [address] [place] [address] PCP - General 10/01/11 02/13/21 documented as of this encounter
--- OUTSIDE RECORDS SUMMARY | 2024-07-11 11:17 | XMS_ITS | Encounter Summary ---
Author Organization [facility] Address [facility] [place] [address] Care Team Providers Care Manager Workers Compensation Name Role Phone Maximilian Fall MD Primary Care Provider [phone] Encounter Details Date Type Department Care Team (Late st Contact Info) Description 03/02/2012 External Results [place] [address] Dion Barlow MD [facility] [place] [address] Social History Tobacco Use Types Packs/Day Years [...] 9:00 AM EDT Office [place] [phone] Dion Barlow MD [facility] [place] [address] 09/01/2024 9:40 AM EDT Office Visit Cardiology at [address] [place] [phone] Franky Shaver MD [facility] [place] [address] 09/01/2024 11:20 AM EDT Office Visit Dermatology at [facility] [address] [place] [address] Gómez Mercer MD [facility] DR EDD[place] [address] 09/21/2024 2:45 PM EDT Office Visit Pain and Spine Center at [facility] [place] [phone] Trung Hoyos MD [facility] [place] [address] documented as of this encounter Procedures Procedure Name Priority Date/Time Associated Diagnosis Comments EXTERNAL LAB RESULTS Routine 03/02/2012 documented in this encounter Results * External Lab Results (03/02/2012) Stool specimen (specimen) 03/02/2012 L Karthik Barlow MD CHEMISTRY ORDERABLES documented in this encounter Visit Diagnoses Not on filedocumented in this encounter Care Teams Manager Workers Compensation Relationship Specialty Start Date End Date Maximilian Fall MD [facility] [address] [facility] [address] [place] [address] PCP - General 10/01/11 02/13/21 documented as of this encounter
--- OUTSIDE RECORDS SUMMARY | 2024-07-11 11:17 | XMS_ITS | Encounter Summary ---
Author Organization [facility] [place] [address] Care Team Providers Care Tour Escort Name Role Phone Maximilian Fall MD Primary Care Provider [phone] Reason for Visit * Reason Onset Date Comments Medication Refill 04/05/2014 Encounter Details Date Type Department Care Team (Late st Contact Info) Description 04/05/2014 [place] [address] Dion Barlow MD [facility] [place] [address] Social History Tobacco Use Types Packs/Day Years [...] 9:00 AM EDT Office [place] [address] Dion Barlow MD [facility] [place] [address] 09/01/2024 9:40 AM EDT Office Visit Cardiology at [address] [place] [address] Franky Shaver MD [facility] [place] [address] 09/01/2024 11:20 AM EDT Office Visit Dermatology at [facility] [address] [place] [address] Gómez Mercer MD [facility] [place] [address] 09/21/2024 2:45 PM EDT Office Visit Pain and Spine Center at [facility] [place] [phone] Trung Hoyos MD [facility] [place] [address] documented as of this encounter Visit Diagnoses Not on filedocumented in this encounter Care Teams Tour Escort Relationship Specialty Start Date End Date Maximilian Fall MD [address] [facility] [place] [address] PCP - General 10/01/11 02/13/21 documented as of this encounter
--- OUTSIDE RECORDS SUMMARY | 2024-07-11 11:17 | XMS_ITS | Encounter Summary ---
Author Organization [facility] Address [facility] [place] [address] Care Team Providers Care Rn Triage Name Role Phone Maximilian Fall MD Primary Care Provider [phone] Reason for Visit * Reason Comments Follow-up Encounter Details Date Type Department Care Team (Late st Contact Info) Description 06/05/2014 9:30 AM EDT Follow-[place] [address] Marcelle Weinberg, JAZMINE [facility] [place] [address] Other ulcerative colitis (Primary Dx) Discharge Disposition: [...] in this encounter Progress Notes * Marcelle WeinbergJAZMINE - 06/05/2014 9:29 AM EDT ??? Ulcerative colitis Colonoscopy 04/08/10 (Dr. Gomes [facility]) - inflammation only within [...] AM EDT Office Visit [place] [address] Dion Barlow MD [facility] [place] [address] 09/01/2024 9:40 AM EDT Office Visit Cardiology at [address] [phone] Farnky Shaver MD [facility] [place] [address] 09/01/2024 11:20 AM EDT Office Visit Dermatology at [facility] [address] [place] [phone] Gómez Mercer MD [facility] [place] [address] 09/21/2024 2:45 PM EDT Office Visit [facility] [place] [address] Trung Hoyos MD [facility] [place] [address] Scheduled Orders Name Type Priority Associated Diagnoses Orde r Schedule COLONOSCOPY Procedures Routine Other ulcerative colitis Ordered: 06/05/2014 documented as of this encounter Visit Diagnoses Diagnosis Other ulcerative colitis- Primary documented in this encounter Care Teams Rn Triage Relationship Specialty Start Date End Date Maximilian Fall MD [address] [place] [address] PCP - General 10/01/11 02/13/21 documented as of this encounter
--- OUTSIDE RECORDS SUMMARY | 2024-07-11 11:18 | XMS_ITS | Encounter Summary ---
Author Organization [facility] Address [facility] [place] [address] Care Team Providers Care Restaurant Line Server Name Role Phone Maximilian Fall MD Primary Care Provider [phone] Reason for Visit * Reason Comments Research Merit UC screening v isit Encounter Details Date Type Department Care Team (Late st Contact Info) Description 03/02/2012 7:30 AM EDT Office [place] [address] Mica Gore, [facility] [place] [address] Ulcerative colitis (Primary Dx) Social History Tobacco [...] 9:00 AM EDT Office [place] [address] Dion Barlow MD [facility] [place] [address] 09/01/2024 9:40 AM EDT Office Visit [place]iology [place] [address] [place] [phone] Franky Shaver MD [facility] [place] [address] 09/01/2024 11:20 AM EDT Office Visit Dermatology at [facility] [address] [place] [phone] Gómez Mercer MD [facility] DR EDD[place] [address] 09/21/2024 2:45 PM EDT Office Visit [place] [phone] Trung Hoyos MD [facility] [place] [address] documented as of this encounter Visit Diagnoses Diagnosis Ulcerative colitis- Primary Ulcerative colitis, unspecified documented in this encounter Care Teams Restaurant Line Server Relationship Specialty Start Date End Date Maximilian Fall MD [address] [place] [address] PCP - General 10/01/11 02/13/21 documented as of this encounter
--- OUTSIDE RECORDS SUMMARY | 2024-07-11 11:18 | XMS_ITS | Encounter Summary ---
Author Organization [facility] [place] [address] Care Team Providers Care Machine Shop Lead Man Name Role Phone Maximilian Fall MD Primary Care Provider [phone] Reason for Visit * Reason Onset Date Comments Research 02/20/2012 discuss Merit UC Encounter Details Date Type Department Care Team (Late st Contact Info) Description 02/20/2012 Telephone [place] [address] Mica Gore, JAZMINE [facility] [place] [address] Research (discuss Merit UC) Social History Tobacco [...] 9:00 AM EDT Office [place] [address] Dion Barlow MD [facility] [place] [address] 09/01/2024 9:40 AM EDT Office Visit Cardiology at [address] [address] Franky Shaver MD [facility] [place] [address] 09/01/2024 11:20 AM EDT Office Visit Dermatology at [facility] [address] [place] [address] Gómez Mercer MD [facility] [place] [address] 09/21/2024 2:45 PM EDT Office Visit [facility] [place] [address] Trung Hoyos MD [facility] [place] [address] documented as of this encounter Visit Diagnoses Not on filedocumented in this encounter Care Teams Machine Shop Lead Man Relationship Specialty Start Date End Date Maximilian Fall MD [address] [place] [address] PCP - General 10/01/11 02/13/21 documented as of this encounter
--- OUTSIDE RECORDS SUMMARY | 2024-07-11 11:18 | XMS_ITS | Encounter Summary ---
Author Organization [facility] Address [facility] [place] [address] Care Team Providers Care Pizza Hut Assistant Name Role Phone Maximilian Fall MD Primary Care Provider [phone] Encounter Details Date Type Department Care Team (Latest Contact Info) Description 11/27/2011 11:49 AM EST - 11/27/2011 2:45 PM EST Hospital Encounter [place] [address] Dion Osullivan MD [facility] [place] [address] Discharge Disposition: Home Social History Tobacco Use [...] - 11/27/2011 2:37 PM EST Please call [phone], before 5pm with problems, questions or concerns, after 5pm call the Hospital at [phone] and ask to speak to the Student Liaison Officer food and nutrition professor and the change number operator will contactthat person for you. Discharge instructions reviewed with patient who expresses understanding. * Patient Instructions* Dion Osullivan MD - 11/27/2011 1:07 PM EST Please see Recommendations in the Provation procedure report which is documented in the procedural note in E-DH. * Attachments The following attachments cannot be sent through Care Everywhere. * COLONOSCOPY: WHAT TO EXPECT AT HOME (PORTUGUESE) documented in this encounter Medications at Time of Discharge Medication Sig Dispensed Refills Start Date End Date sulfaSALAzine (AZULFIDINE) 500 mg tabletIndications:Ulce rative colitis Take 4 tablets by mouth 2 times daily for 90 days. 240 tablet 2 10/01/2011 12/30/2011 naproxen (NAPROSYN) 500 mg tablet Take 500 mg by mouth 2 times daily. 01/28/2012 omeprazole (PRILOSEC) 20 mg capsule Take 40 [...] Osullivan MD - 11/27/2011 1:06 PM EST [facility] Operative Note Patient Name: Naya Rodriguez : [id number] MR#: [id number] Case Date: 11/27/2011 Surgeon: Surgeon(s) and Role: * Dion OSULLIVAN MD - Primary Please see the Provation procedure report in the Procedures tab in eDH. documented in this encounter Plan of Treatment Upcoming Encounters Date Type Department Care Team (Late st Contact Info) Description 08/15/2024 9:00 AM EDT Office Visit [place] [phone] Dion Osullivan MD [facility] [place] [address] 09/01/2024 9:40 AM EDT Office Visit Cardiology at [address] [address] Franky Shaver MD [facility] [place] [address] 09/01/2024 11:20 AM EDT Office Visit Dermatology at [address] [phone] Gómez [facility]cer MD [facility] [place] [address] 09/21/2024 2:45 PM EDT Office Visit [facility] [place] [address] Trung Hoyos MD [facility] [place] [address] documented as of this encounter Procedures Procedure [...] 4:38 PM EST) Surgical Pathology Report ? [facility] ? Provider: ?? Dion OSULLIVAN ?Pt. Name: ?? SHANTNAYA ? Acc #: ?[id number] ?Pt. ? Col Date: ?? 11/27/2011 ?/Sex: [...] Stephen, rubbery mucosal polyp, the larger ? [facility] ? Provider: ?? Dion OSULLIVAN ?Pt. Name: ?? NAYA RODRIGUEZ ? Acc #: ?[id number] ?Pt. ? Col Date: ?? 11/27/2011 ?/Sex: [...] [facility] 11/27/2011 4:38 PM EST L Karthik Osullivan MD PATHOLOGY/CYTOLOGY O RDERAOMAR [facility] * Specimen to Pathology (surgical or derm) (11/27/2011 1:53 PM EST) AP Specimen 11/27/2011 1:53 PM EST 11/27/2011 1:53 PM EST Narrative [facility] - 11/27/2011 1:53 PM EST Specimen requisition ordered. ??Separate Pathology report to follow L Karthik Osullivan MD PATHOLOGY/CYTOLOGY O CEE Performing Organization Address City/[facility] Co de Phone Number [facility] * Specimen to Pathology (surgical or derm) (11/27/2011 1:53 PM EST) AP Specimen 11/27/2011 1:53 PM EST 11/27/2011 1:53 PM EST Narrative [facility] - 11/27/2011 1:53 PM EST Specimen requisition ordered. ??Separate Pathology report to follow L Karthik Osullivan MD PATHOLOGY/CYTOLOGY O CEE Performing Organization Address City/[facility] Co de Phone Number [facility] * Specimen to Pathology (surgical or derm) (11/27/2011 1:53 PM EST) AP Specimen 11/27/2011 1:53 PM EST 11/27/2011 1:53 PM EST Narrative [facility] - 11/27/2011 1:53 PM EST Specimen requisition ordered. ??Separate Pathology report to follow L Karthik Osullivan MD PATHOLOGY/CYTOLOGY O CEE Performing Organization Address City/[facility] Co de Phone Number [facility] * COLONOSCOPY (11/27/2011 1:01 PM EST) COLONOSCOPY [facility] Endoscopy Patient Name: Naya Rodriguez ? Procedure Date: 11/27/2011 01:01:31 PM ? Date of : 1950 ? Age: 61 ? Procedure: ? Colonoscopy Indications: ? Follow-up of left-sided chronic ? ulcerative colitis Providers: ? L Karthik Osullivan MD, Tyron Cee, ? RN, Qing López, Marble Installer Referring MD: ?Maximilian Fall MD Medicines: ? [...] on Tresa 12 at 1230, Until Tresa 112 at 1701, Endoscopy (Day of Procedure) 1230 (New Bag - Prov ider: Madalyn Harley RN) PRN Medication Order 11/25/2011 11/26/2011 11/27/2011 fentaNYL 50mcg/mL injection (CANCELED) ONCE PRN, Starting on Tresa 12 at 1308, Until Tresa 12 at 1701, Pain, Intra-Operative (Intra-Procedure), Routine 1308 (Given - Provid er: Tyron Cee RN - Comment: start moderate sedation)1311 (Given - Provider: yTron Cee RN - Comment: awake after 1st [...] time) documented in this encounter Care Teams Pizza Hut Assistant Relationship Specialty Start Date End Date Maximilian Fall MD [address] [place] [address] PCP - General 10/01/11 02/13/21 documented as of this encounter
--- OUTSIDE RECORDS SUMMARY | 2024-07-11 11:18 | XMS_ITS | Encounter Summary ---
Author Organization Replaced By [facility] Address [facility] [place] [address] Care Team Providers Care Horse Racer Name Role Phone Maximilian Fall MD Primary Care Provider [phone] Encounter Details Date Type Department Care Team (Late st Contact Info) Description 11/27/2011 1:00 PM EST - 11/27/2011 1:45 PM EST Surgery [place] [address] Dion Osullivan MD [facility] [place] [address] COLONOSCOPY, DIAGNOSTIC (WRVU 3.26) Social History Tobacco [...] - 11/27/2011 2:37 PM EST Please call [phone], before 5pm with problems, questions or concerns, after 5pm call the Hospital at [phone] and ask to speak to the Campus Police Officer metal container maker and the potato chip sacking machine operator will contactthat person for you. Discharge instructions reviewed with patient who expresses understanding. * Patient Instructions* Dion Osullivan MD - 11/27/2011 1:07 PM EST Please see Recommendations in the Provation procedure report which is documented in the procedural note in E-DH. * Attachments The following attachments cannot be sent through Care Everywhere. * COLONOSCOPY: WHAT TO EXPECT AT HOME (CROATIAN) documented in this encounter Medications at Time [...] Osullivan MD - 11/27/2011 1:06 PM EST [facility] Operative Note Patient Name: Naya Rodriguez : [id number] MR#: [id number] Case Date: 11/27/2011 Surgeon: Surgeon(s) and Role: * Dion OSULLIVAN MD - Primary Please see the Provation procedure report in the Procedures tab in eDH. documented in this encounter Plan of Treatment Upcoming Encounters Date Type Department Care Team (Late st Contact Info) Description 08/15/2024 9:00 AM EDT Office [place] [address] Dion Osullivan MD [facility] [place] [address] 09/01/2024 9:40 AM EDT Office Visit Cardiology at [address] [address] Franky Shaver MD [facility] [place] [address] 09/01/2024 11:20 AM EDT Office Visit Dermatology at [address] [address] Gómez Mercer MD [facility] DR [place] [address] 09/21/2024 2:45 PM EDT Office Visit [place] [address] Trung Hoyos MD [facility] [place] [address] documented as of this encounter Procedures Procedure [...] 4:38 PM EST) Surgical Pathology Report ? [facility] ? Provider: ?? Dion OSULLIVAN ?Pt. Name: ?? NAYA RODRIGUEZ ? Acc #: ?[id number] ?Pt. ? Col Date: ?? 11/27/2011 ?/Sex: [...] Stephen, rubbery mucosal polyp, the larger ? [facility] ? Provider: ?? Dion OSULLIVAN ?Pt. Name: ?? NAYA RODRIGUEZ ? Acc #: ?[id number] ?Pt. ? Col Date: ?? 11/27/2011 ?/Sex: [...] Karthik Osullivan MD PATHOLOGY/CYTOLOGY O CEE [facility] * Specimen to Pathology (surgical or derm) (11/27/2011 1:53 PM EST) AP Specimen 11/27/2011 1:53 PM EST 11/27/2011 1:53 PM EST Narrative [facility] - 11/27/2011 1:53 PM EST Specimen requisition ordered. ??Separate Pathology report to follow L Karthik Osullivan MD PATHOLOGY/CYTOLOGY O CEE Performing Organization Address [facility] [[email or web address]] Co de Phone Number [facility] * Specimen to Pathology (surgical or derm) (11/27/2011 1:53 PM EST) AP Specimen 11/27/2011 1:53 PM EST 11/27/2011 1:53 PM EST Narrative [facility] - 11/27/2011 1:53 PM EST Specimen requisition ordered. ??Separate Pathology report to follow L Karthik Osullivan MD PATHOLOGY/CYTOLOGY O CEE Performing Organization Address City/[facility] [[email or web address]] Co de Phone Number [facility] * Specimen to Pathology (surgical or derm) (11/27/2011 1:53 PM EST) AP Specimen 11/27/2011 1:53 PM EST 11/27/2011 1:53 PM EST Narrative [facility] - 11/27/2011 1:53 PM EST Specimen requisition ordered. ??Separate Pathology report to follow L Karthik Osullivan MD PATHOLOGY/CYTOLOGY O CEE Performing Organization Address [facility] [[email or web address]] Co de Phone Number [facility] * COLONOSCOPY (11/27/2011 1:01 PM EST) COLONOSCOPY [facility] Endoscopy Patient Name: Naya Rodriguez ? Procedure Date: 11/27/2011 01:01:31 PM ? Date of : 1950 ? Age: 61 ? Procedure: ? Colonoscopy Indications: ? Follow-up of left-sided chronic ? ulcerative colitis Providers: ? L Karthik Osullivan MD, Tyron Cee, ? RN, Qing López, Mat Machine Operator Referring MD: ?Maximilian Fall MD [...] on Tresa 11/27/11 at 1230, Until Tresa 12 at 1701, [...] injection (CANCELED) ONCE PRN, Starting on Tresa 112 at 1308, Until Tresa 112 at 1701, Sleep, Intra-Operative (Intra-Procedure), Routine 1308 (Given - Provid er: Tyron Cee RN - Comment: see fentanyl same time)1311 (Given - Provider: Tyron Cee RN - Comment: see fentanyl same time)1320 (Given - Provider: Tyron Cee RN - Comment: see fentanyl same time) documented in this encounter Care Teams Horse Racer Relationship Specialty Start Date End Date Maximilian Fall MD [address] [place] [address] PCP - General 10/01/11 02/13/21 documented as of this encounter
--- OUTSIDE RECORDS SUMMARY | 2024-07-11 11:18 | XMS_ITS | Encounter Summary ---
Author Organization [facility] Address [facility] [place] [address] Care Team Providers Care Director Of Human Resources Name Role Phone More Naylor MD Primary Care Provider [phone] Reason for Visit * Reason Comments Follow-up Encounter Details Date Type Department Care Team (Late st Contact Info) Description 11/05/2011 2:00 PM EST [place] [address] Dion Barlow MD [facility] [place] [address] Ulcerative colitis (Primary Dx) Discharge Disposition: Home [...] the preparation at this time. Please call [phone] to let us know that you cannot [...] before you arrive at the Endoscopy Center (4T). ?? You will need to arrive ONE HOUR before your procedure time to help you prepare for your procedure; please see your letter for exact arrival time. ?? Please plan to be at [facility] for about 3 hours; please see your letter for estimated procedure and discharge times. If you have read the information thoroughly, and still have questions about what you have read, please call [phone] between the hours of 7:00am - 7:00pm, Thursday - Thursday and a nurse will assist you. If you have an urgent matter after hours, please call [phone], and ask to speak to the Gastroenterology Fellow continuous wave operator. If you need to reschedule your colonoscopy, please call [phone]. We do have a high volume of [...] information packet from Gastroenterology and Hepatology and [facility]: ?? Please read ALL information in your information packet. ?? If you have read the information thoroughly, and still have questions about what you have read, please call [phone] between the hours of 7:00am - 7:00pm Thursday - Thursday, and a nurse will assist you. ?? If you have an urgent matter after hours, please call [phone], and ask to speak to the Gastroenterology Fellow continuous wave operator. ?? If you need to reschedule your colonoscopy, please call [phone]. We do have a high volume of patients for this exam, so please give a least 72 hours notice for routine rescheduling. MEDICATION INFORMATION ?? Please call your prescribing physician to see if it is safe for you to lessen the dose or stop your medication prior to this procedure. Please note: If you cannot safely stop these medications, please call [phone]. The prescribing physician can give you instructions [...] you arrive (2 hours before your procedure) [facility] () ?? You will need to arrive ONE HOUR before your procedure time, to help you prepare for your procedure; please see your letter for exact arrival time. ?? Please plan to be at [facility] for about 3 hours; please see the included form letter for estimated procedure and discharge times. GENERAL INFORMATION ON YOUR COLONOSCOPY (con't) ?? We do our best to be on time, however sometimes there are emergencies. While this doesn't happenvery often you may have a wait time. We want each and every patient to get the excellent care [facility] provides, therefore we thank you [...] forms of transportation like cabs or buses. [email or web address] 1 FREQUENTLY ASKED QUESTIONS ABOUT YOUR COLONOSCOPY [...] one do I follow? A: Please follow [facility] Gastroenterology instructions, NOT the instructions from the [...] you continue to have problems, please call [phone] during office hours at 7am - 5pm.After hours please call [phone], and ask for the Gastroenterology Fellow continuous wave operator. Q: Do I REALLY need to [...] have a deep chest cough, please call [phone] to see if you need to reschedule your appointment. Q: I am having my menstrual period. Should I reschedule my colonoscopy appointment? A: No. Your menstrual period will not interfere with your physician's ability to complete your procedure. [facility] FAQ 07/12/2009 Brian Rodriguez [address] [facility] [address] Thank you for choosing [facility] for your medical needs. You are scheduledfor a colonoscopy on at the Endoscopy Center at [facility] 4T (Level 4). Below you will find [...] about what you have read, please call [phone] between the hours of 7:00am - 7:00pm Thursday - Thursday, and ask to speak to the Gastroenterology Fellow continuous wave operator. If you need to reschedule your procedure please call: [phone]. Thank you for choosing [facility]. Sincerely, The Gastroenterology and Hepatology Team and the [facility]oscopy Center at [facility] documented in this encounter Progress Notes * Dion Barlow MD - 11/05/2011 2:31 PM EST Patient Active Problem List Diagnoses ??? Ulcerative colitis [556.9J] Colonoscopy 04/08/10 (Dr. Gomes [facility]) - [...] 4. Arrange for colonoscopy. Davina Barlow MD Dough Molder Handboatbuilder apprentice wood Section of Gastroenterology [place] [address] CC: MORE NAYLOR MD [address] [place] [address] documented in this encounter Plan of Treatment Upcoming Encounters Date Type Department Care Team (Late st Contact Info) Description 08/15/2024 9:00 AM EDT [place] [address] Dion Barlow MD [facility] [place] [address] 09/01/2024 9:40 AM EDT Office Visit Cardiology at [address] [address] Franky Shaver MD [facility] [place] [address] 09/01/2024 11:20 AM EDT Office Visit Dermatology at [facility] [address] [place] [address] Gómez Mercer MD [facility] DR EDDIE [place] [address] 09/21/2024 2:45 PM EDT Office Visit Pain and Spine Center at [facility] [place] [phone] Trung Hoyos MD [facility] [place] [address] documented as of this encounter Procedures Procedure [...] 0.05 x10(3)/mcL CERNER MILLENNIUM Blood specimen (specimen) 11/05/2011 3:15 PM EST 11/05/2011 3:22 PM EST Dion Barlow MD HEMATOLOGY ORDERABLE S Performing Organization Address [facility] Co de Phone Number [facility] * TPMT Enzyme (11/05/2011 3:15 PM EST) Pathologist [facility] TPMT Enzyme See Note [facility] Comment: Normal Activity Please see scanned report in Chart Review under the Non-DH Laboratory Heading. Test performed by [employer], [address] [place] [id number] Blood specimen (specimen) 11/05/2011 3:15 PM EST 11/05/2011 3:45 PM EST Dion Barlow MD CHEMISTRY ORDERABLES Performing Organization Address [facility] Co de Phone Number [facility] * High Sensitivity CRP (11/05/2011 3:15 PM EST) C-Reactive Protein High Sensitivity 2.3 mg/L [facility] Comment: Interpretations: 1) For cardiac risk [...] Barlow MD CHEMISTRY ORDERABLES Performing Organization Address [facility] de Phone Number [facility] * Sedimentation rate (11/05/2011 3:15 PM EST) [facility] Signature Sedimentation Rate Automated 13 0 - 15 mm/hr DURGA FREDERICK Blood specimen (specimen) 11/05/2011 3:15 PM EST 11/05/2011 3:22 PM EST L Karthik Barlow MD HEMATOLOGY ORDERABLE S Performing Organization Address [facility] de Phone Number CERGIOVANNI MILLENNIUM * CMP w/fasting Glucose (11/05/2011 3:15 PM EST) [facility] [address] Glucose Fasting 97 65 - 99 mg/dL [...] of Diabetes Mellitus, Position Statement from the [place] [employer]. ??Diabetes Care, Volume 33, Supplement [...] EST 11/05/2011 3:23 PM EST L Karthik Balrow MD CHEMISTRY ORDERABLES CERGIOVANNI ORDOÑEZENNIUM * (ABNORMAL) CBC (with Diff) (11/05/2011 3:15 [...] MD HEMATOLOGY ORDERABLE S Performing Organization Address City/State/[facility] Co de Phone Number DURGA FREDERICK documented in this encounter Visit Diagnoses Diagnosis Ulcerative colitis- Primary Ulcerative colitis, unspecified documented in this encounter Care Teams Director Of Human Resources Relationship Specialty Start Date End Date More Naylor MD [address] [place] [address] PCP - General 10/01/11 02/13/21 documented as of this encounter
--- OUTSIDE RECORDS SUMMARY | 2024-07-11 11:18 | XMS_ITS | Encounter Summary ---
Author Organization [facility] Address [facility] [place] [address] Care Team Providers Care Crm Consultant Name Role Phone More Naylor MD Primary Care Provider [phone] Reason for Visit * Reason Comments Follow-up Encounter Details Date Type Department Care Team (Late st Contact Info) Description 01/28/2012 3:00 PM EST Follow-[place] [address] Dion Barlow MD [facility] [place] [address] Ulcerative colitis (Primary Dx) Discharge Disposition: Home [...] Ulcerative colitis Colonoscopy 04/08/10 (Dr. Gomes [facility]) - inflammation only within the rectum and sigmoid; extent of the exam was to the hepatic flexure; biopsies proximal to the sigmoid nl Repeat exam 11/27/11 ([facility] mildly active colitis in the sigmoid colon [...] first time since his colonoscopy in early [facility]. At that time, he had a [...] sooner of symptoms worsen. Davina Barlow MD Stable Attendantmetal stamping machine operator Section of Gastroenterology [place] [address] CC: MORE NAYLOR MD [address] [facility] [address] documented in this encounter Plan of Treatment Upcoming Encounters Date Type Department Care Team (Late st Contact Info) Description 08/15/2024 9:00 AM EDT Office [place] [address] Dion Barlow MD [facility] [place] [address] 09/01/2024 9:40 AM EDT Office Visit Cardiology at [address] [phone] Franky Shaver MD [facility] [place] [address] 09/01/2024 11:20 AM EDT Office Visit Dermatology at [address] [phone] Gómez Mercer MD [facility] [address] 09/21/2024 2:45 PM EDT Office Visit [place] [phone] Trung Hoyos MD [facility] [place] [address] documented as of this encounter Visit Diagnoses Diagnosis Ulcerative colitis- Primary Ulcerative colitis, unspecified documented in this encounter Care Teams Crm Consultant Relationship Specialty Start Date End Date More Naylor MD [address] [place] [address] PCP - General 10/01/11 02/13/21 documented as of this encounter
--- OUTSIDE RECORDS SUMMARY | 2024-07-11 11:18 | XMS_ITS | Encounter Summary ---
Author Organization [facility] Address [facility] [place] [address] Care Team Providers Care Fertilizer Supervisor Name Role Phone More Naylor MD Primary Care Provider [phone] Reason for Visit * Reason Comments GI Problem Encounter Details Date Type Department Care Team (Late st Contact Info) Description 10/01/2011 9:30 AM EST Office [place] [address] Dion Barlow MD [facility] [place] [address] Ulcerative colitis (Primary Dx) Discharge Disposition: Home [...] 1. Stool studies to be done at [facility] - will give instructions and a [...] ??? Ulcerative colitis Colonoscopy 04/08/10 (Dr. Gomes [facility]) - inflammation only within the rectum [...] has three kids. 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 He quit smoking in 1991 after 30 [...] adenopathy and no thyromegaly. HEENT: PERRL, EOMI, POT FIRER and OP clear without ulceration or lesions. [...] stool studies (check in February by Dr. Nyalor) to be sure there is no superimposed infection. He should have a CBC and repeat LFTs when he returns after sulfasalazine has been started. RECOMMENDATIONS (printed and given to the patient): 1. Stool studies to be done at [facility] - will give instructions, an order, [...] questions 50 minutes of this 60 minute [id number] encounter were spent counseling the patient in the issuesoutlined above. Davina Barlow MD Engine Managerheavy duty truck mechanic Section of Gastroenterology [place] [address] [email or web address] CC: MORE NAYLOR MD [address] [facility] [address] documented in this encounter Plan of Treatment Upcoming Encounters Date Type Department Care Team (Late st Contact Info) Description 08/15/2024 9:00 AM EDT Office [place] [address] Dion Barlow MD [facility] [place] [address] 09/01/2024 9:40 AM EDT Office Visit Cardiology at [address] [phone] Franky Shaver MD [facility] [place] [address] 09/01/2024 11:20 AM EDT Office Visit Dermatology at [address] [place] [address] Gómez Mercer MD [facility] DR [place] [address] 09/21/2024 2:45 PM EDT Office Visit Pain and Spine Center at [facility] [place] [phone] Trung Hoyos MD [facility] [place] [address] documented as of this encounter Visit Diagnoses Diagnosis Ulcerative colitis- Primary Ulcerative colitis, unspecified documented in this encounter Care Teams Fertilizer Supervisor Relationship Specialty Start Date End Date More Naylor MD [address] [place] [address] PCP - General 10/01/11 02/13/21 documented as of this encounter
--- OUTSIDE RECORDS SUMMARY | 2024-07-15 13:34 | XMS_ITS | Encounter Summary ---
Author Organization [facility] Address [address] [place] [address] Care Team Providers Care Youth Program Director Name Role Phone Maximilian Fall MD Primary Care Provider [phone] Encounter Details Date Type Department Care Team [...] on filedocumented in this encounter Care Teams Youth Program Director Relationship Specialty Start Date End Date Maximilian Fall MD PCP - General 03/18/16 documented as of this encounter
--- OUTSIDE RECORDS SUMMARY | 2024-07-15 13:34 | XMS_ITS | Encounter Summary ---
Author Organization [facility] Address [address] [place] [address] Care Team Providers Care Lead Atg Developer Name Role Phone Maximilian Fall MD Primary Care Provider [phone] Reason for Referral * (Routine/Next Available) - Receiving Office to Obtain Authorization Specialty Diagnoses / Procedures Referred By Contac t Referred To Contact Procedures XR OUTSIDE IMAGES CHEST Unknown, ProviderMD Referral ID Status Reason Start Date Expiration Date Visits Requested Visits Authorized [id number] Receiving Office to Obtain Authorization 06/29/2024 1 1 Reason for Visit * (Routine/Next Available) - Receiving Office to Obtain Authorization Specialty Diagnoses / Procedures Referred By Contac t Referred To Contact Procedures XR OUTSIDE IMAGES CHEST Unknown, MD [place] Referral ID Status Reason Start Date Expiration Date Visits Requested Visits Authorized [id number] Receiving Office to Obtain Authorization 06/29/2024 1 1 Encounter Details Date Type Department Care Team (Latest Contact Info) Description 06/29/2024 18:51 EDT - 06/29/2024 23:59 EDT Hospital Encounter [facility] Secondary Reads [place] Discharge Disposition: Home [...] on filedocumented in this encounter Care Teams Lead Atg Developer Relationship Specialty Start Date End Date Maximilian Fall MD PCP - General 03/18/16 documented as of this encounter
--- OUTSIDE RECORDS SUMMARY | 2024-07-15 13:34 | XMS_ITS | Encounter Summary ---
Author Organization [facility] Address [address] [place] [address] Care Team Providers Care District Manager Postal Service Name Role Phone Maximilian Fall MD Primary Care Provider [phone] Encounter Details Date Type Department Care Team (Late st Contact Info) Description 03/10/2023 Lab Requisition [facility] Pathology & Laboratory Medicine - [address] [address] Rodrick Florentino MD [address] [place] [phone] Other microscopic hematuria Social History Tobacco [...] Name Priority Date/Time Associated Diagnosis Comments NON TRAVELING OPERATOR/FNA CYTOLOGY Today 03/09/2023 10:55 EDT Other microscopic hematuria documented in this encounter Results * NON TRAVELING OPERATOR/FNA CYTOLOGY (03/09/2023 10:55 EDT) Note to Patient The following pathology results have been interpreted by your pathologist and may be available to you before your health provider has had the opportunity to review them. Please allow time for your provider to receive these results and explore management options, if applicable. 03/12/2023 7:50 [facility] Final Diagnosis URINE, CATHETERIZED, CYTOLOGIC EVALUATION: - Negative for high grade urothelial carcinoma. - Reactive urothelial cells, abundant acute inflammatory cells and lymphocytes present. 03/12/2023 7:50 [facility] Attestation By the signature below, the attending physician certifies that they have personally conducted a gross and/or microscopic examination of the described specimens and rendered or confirmed the above diagnosis. 03/12/2023 7:50 [facility] at 0750 Clinical History Hematuria; R31.29 03/12/2023 7:50 [facility] Gross Description A. 160cc's of clear pale pink fluid (Cytolyt added) were received and processed by selective cellular enhancement technique. 03/12/2023 7:50 [facility] Performing Lab [facility] 03/12/2023 7:50 [facility] Scanned Images 03/12/2023 7:50 [facility] Urine URINE SPECIMEN COLLECTION, CATHETERIZED / Unknown 03/09/2023 10:55 EDT 03/10/2023 6:16 EDT Rodrick Florentino MD PATHOLOGY ORDERAB LES Performing Organization Address City/State/[facility] Co de Phone Number [facility] SERVICES [address] [place] [address] documented in this encounter Visit Diagnoses Diagnosis Other microscopic hematuria documented in this encounter Care Teams District Manager Postal Service Relationship Specialty Start Date End Date Maximilian Fall MD PCP - General 03/18/16 documented as of this encounter
--- OUTSIDE RECORDS SUMMARY | 2024-07-15 13:34 | XMS_ITS | Encounter Summary ---
Author Organization [facility] Address [address] [place] [address] Care Team Providers Care Forestry Pilot Name Role Phone Maximilian Fall MD Primary Care Provider [phone] Encounter Details Date Type Department Care Team (Late st Contact Info) Description 02/17/[address] [facility] Pathology & Laboratory Medicine - [address] [id number] Outr Resulting Lab, Provider Social History Tobacco [...] Salmonella PCR Negative Negative 02/18/2023 11:17 EDT [facility] Shigella/Enteroin vasive E. coli Negative Negative 02/18/2023 11:17 EDT [facility] HN LAB CAMPYLOBACTER PCR Negative Negative 02/18/2023 11:17 EDT [facility] Shiga Toxin PCR Negative Negative 03/29/202 3 11:17 EDT [facility] Feces SPECIMEN FROM RECTUM / Unknown 02/17/2023 7:00 EDT 02/17/2023 22:14 EDT Provider Outr Resulting Lab MICROBIOLOGY - GENERAL ORDERABLES Performing Organization Address City/State/[facility] Co de Phone Number [facility] [address] [place] [address] documented in this encounter Visit Diagnoses Not on filedocumented in this encounter Care Teams Forestry Pilot Relationship Specialty Start Date End Date Maximilian Fall MD PCP - General 03/18/16 documented as of this encounter
--- OUTSIDE RECORDS SUMMARY | 2024-07-15 13:34 | XMS_ITS | Referral Summary ---
Author Organization [facility] Address [address] [place] [address] Care Team Providers Care Agricultural Real Estate Agent Name Role Phone Maximilian Fall MD Primary Care Provider [phone] Encounters Date Type Department Care Team Description 06/29/2024 Travel 06/29/2024 18:51 EDT - 06/29/2024 23:59 EDT Hospital Encounter [facility] Secondary Reads [place] Discharge Disposition: Home [...] DERABLES from Last 3 Months Care Teams Agricultural Real Estate Agent Relationship Specialty Start Date End Date Maximilian Fall MD PCP - General 03/18/16
--- OUTSIDE RECORDS SUMMARY | 2024-07-15 13:34 | XMS_ITS | Encounter Summary ---
Author Organization [facility] Address [address] [place] [address] Care Team Providers Care Sterile Technician Name Role Phone Maximilian Fall MD Primary Care Provider [phone] Encounter Details Date Type Department Care Team (Late st Contact Info) Description 11/10/2022 Lab Requisition [facility] Pathology & Laboratory Medicine - [address] [phone] Outr Resulting Lab, Provider Social History Tobacco [...] Salmonella PCR Negative Negative 11/11/2022 0:14 EST [facility] Shigella/Enteroin vasive E. coli Negative Negative 11/11/2022 0:14 EST [facility] HN LAB CAMPYLOBACTER PCR Negative Negative 11/11/2022 0:14 EST [facility] Shiga Toxin PCR Negative Negative 2 0:14 EST [facility] Feces SPECIMEN FROM RECTUM / Unknown 11/09/2022 10:00 EST 11/10/2022 17:36 EST Provider Outr Resulting Lab MICROBIOLOGY - GENERAL ORDERABLES Performing Organization Address City/State/[facility] Co de Phone Number [facility] [address] [place] [address] documented in this encounter Visit Diagnoses Not on filedocumented in this encounter Care Teams Sterile Technician Relationship Specialty Start Date End Date Maximilian Fall MD PCP - General 03/18/16 documented as of this encounter
--- OUTSIDE RECORDS SUMMARY | 2024-07-15 13:34 | XMS_ITS | Encounter Summary ---
Author Organization [facility] Address [address] [place] [address] Care Team Providers Care Hedis Analyst Name Role Phone Maximilian Fall MD Primary Care Provider [phone] Encounter Details Date Type Department Care Team (Late st Contact Info) Description 07/09/2021 Lab Requisition [facility] Pathology & Laboratory Medicine - [address] [phone] Outr Resulting Lab, Provider Social History Tobacco [...] Outr Resulting Lab MICROBIOLOGY - GENERAL ORDERABLES [facility] [address] [place] [address] * COVID-19 TESTING (07/08/2021 16:45 EDT) COVID-19 rt-PCR Result Negative Negative 07/10/2021 13:51 EDT [facility] Comment: This test has not [...] developed and its performance characteristics determined by [facility]. It has not been cleared or approved [...] defined by the FDA Performed on the High Fidelityo 7 Pro RT-PCR System. Performing Lab [facility] Lab 07/10/2021 13:51 EDT [facility] Swab 07/08/2021 16:4 5 EDT 07/09/2021 15:41 EDT Provider Outr Resulting Lab MICROBIOLOGY - GENERAL ORDERABLES Performing Organization Address City/[facility] Co de Phone Number [facility] [address] [place] [address] documented in this encounter Visit Diagnoses Not on filedocumented in this encounter Care Teams Hedis Analyst Relationship Specialty Start Date End Date Maximilian Fall MD PCP - General 03/18/16 documented as of this encounter
--- OUTSIDE RECORDS SUMMARY | 2024-07-15 13:34 | XMS_ITS | Encounter Summary ---
Author Organization [facility] Address [address] [place] [address] Care Team Providers Care Quality Systems Manager Name Role Phone Maximilian Fall MD Primary Care Provider [phone] Encounter Details Date Type Department Care Team (Late st Contact Info) Description 04/10/2020 Lab Requisition [facility] Pathology & Laboratory Medicine - [address] [phone] Outr Resulting Lab, Provider Social History Tobacco [...] 0.0 - 6.5 ng/mL 04/11/2020 10:46 EDT [facility] Blood VENOUS BLOOD / Unknown 04/10/2020 9:15 EDT 04/10/2020 15:53 EDT Narrative [facility] - 04/11/2020 10:46 EDT NOTE: Serum PSA concentration should not be interpreted as absolute evidence for the presence or absence of malignant disease. Assayed on Siemens ADVIA [employer] XPT using chemiluminescent technology.??Values obtained by using different assay methods cannot be used interchangeably. Provider Outr Resulting Lab CHEMISTRY & BLOOD GAS ORDERABLES [facility] [address] [place] [address] documented in this encounter Visit Diagnoses Not on filedocumented in this encounter Care Teams Quality Systems Manager Relationship Specialty Start Date End Date Maximilian Fall MD PCP - General 03/18/16 documented as of this encounter
--- OUTSIDE RECORDS SUMMARY | 2024-07-15 13:34 | XMS_ITS | Encounter Summary ---
Author Organization [facility] Address [address] [place] [address] Care Team Providers Care Wharf Hand Name Role Phone Maximilian Fall MD Primary Care Provider [phone] Encounter Details Date Type Department Care Team (Late st Contact Info) Description 11/28/2021 Lab Requisition [facility] Pathology & Laboratory Medicine - [address] [phone] Outr Resulting Lab, Provider Social History Tobacco [...] Outr Resulting Lab MICROBIOLOGY - GENERAL ORDERABLES [facility] [address] [place] [address] * COVID-19 TESTING (11/27/2021 12:35 EST) COVID-19 rt-PCR Result Negative Negative 11/29/2021 16:23 EST [facility] Comment: This test has not [...] developed and its performance characteristics determined by [facility]. It has not been cleared or [...] This test is based on the [facility] COVID-19 Emergency Use Authorization (EUA) assay, with minor modification as defined by the FDA Performed on the Corevalus Systemso 7 Flex RT-PCR System. Performing Lab [facility] Lab 11/29/2021 16:23 EST [facility] Swab 11/27/2021 12:3 5 EST 11/28/2021 17:45 EST Provider Outr Resulting Lab MICROBIOLOGY - GENERAL ORDERABLES [facility] [address] [place] [address] documented in this encounter Visit Diagnoses Not on filedocumented in this encounter Care Teams Wharf Hand Relationship Specialty Start Date End Date Maximilian Fall MD PCP - General 03/18/16 documented as of this encounter
--- OUTSIDE RECORDS SUMMARY | 2024-07-15 13:34 | XMS_ITS | Encounter Summary ---
Author Organization [facility] Address [address] [place] [address] Care Team Providers Care Construction Safety Consultant Name Role Phone Maximilian Fall MD Primary Care Provider Encounter Details Date Type Department Care Team (Late st Contact Info) Description 06/28/2021 Lab Requisition [facility] Pathology & Laboratory Medicine - [address] [address] Bettina Shipman, DO [address] [place], [place] [phone] Encounter for other general examination Social History [...] explore management options, if applicable. 07/02/2021 9:15 [facility] Final Diagnosis A. PROXIMAL JEJUNUM, [...] with no significant diagnostic abnormalities. 07/02/2021 9:15 [facility] Attestation There was significant resident/fellow involvement in the diagnostic evaluation of this case. By the signature below, the attending physician certifies that they have personally conducted a gross and/or microscopic examination of the described specimens and rendered or confirmed the above diagnosis. 07/02/2021 9:15 [facility] at 0915 Clinical History Dysphagia 07/02/2021 9:15 [facility] Gross Description A. Received in [...] Destin Barros 06/29/2021 11:30 07/02/2021 9:15 EDT [facility] Resident/Bridger w: Gutierrez Castro DO 07/02/2021 9:15 EDT [facility] Performing Lab [facility] 9:15 EDT [facility] Scanned Images 07/02/2021 9:15 EDT [facility] Tissue ENTIRE ESOPHAGUS / [...] 22:58 EDT Bettina Shipman DO PATHOLOGY ORDERABLES [facility] [address] [place] [address] documented in this encounter Visit Diagnoses Diagnosis Encounter for other general examination documented in this encounter Care Teams Construction Safety Consultant Relationship Specialty Start Date End Date Maximilian Fall MD PCP - General 03/18/16 documented as of this encounter
--- OUTSIDE RECORDS SUMMARY | 2024-07-15 13:34 | XMS_ITS | Clinical Summary ---
Author Organization [facility] Address [address] [place] [address] Care Team Providers Care Licensed Veterinary Technician Name Role Phone Maximilian Fall MD Primary Care Provider [phone] Encounters Date Type Department Care Team Description 06/29/2024 18:51 EDT - 06/29/2024 23:59 EDT Hospital Encounter [facility] Secondary Reads [place] Discharge Disposition: Home [...] DERABLES from Last 3 Months Care Teams Licensed Veterinary Technician Relationship Specialty Start Date End Date Maximilian Fall MD PCP - General 03/18/16
--- OUTSIDE RECORDS SUMMARY | 2024-07-15 13:34 | XMS_ITS | Encounter Summary ---
Author Organization [facility] Address [address] [place] [address] Care Team Providers Care Sampling Expert Name Role Phone Maximilian Fall MD Primary Care Provider [phone] Encounter Details Date Type Department Care Team (Late st Contact Info) Description 08/15/2022 Lab Requisition [facility] Pathology & Laboratory Medicine - [address] [address] Zeyad Hudson, [address] [place] [phone] Neoplasm of unspecified behavior of bone, soft [...] explore management options, if applicable. 08/18/2022 11:15 [facility] Final Diagnosis A. SKIN OF NASAL DORSUM, RIGHT, SHAVE BIOPSY: - Basal cell carcinoma, infiltrative type. - Basal cell carcinoma present at peripheral and deep tissue edges. 08/18/2022 11:15 [facility] Attestation By the signature below, the attending physician certifies that they have 1) personally conducted a gross and/or microscopic examination of the described specimen(s), and/or personally interpreted the results of laboratory testing of the described specimen(s), and 2) personally rendered or confirmed the above diagnosis. 08/18/2022 11:15 [facility] at 1114 Microscopic Description [...] of the islands and stroma. 08/18/2022 11:15 [facility] Clinical History History BCC; clinical diagnosis code: D49.2 08/18/2022 11:15 [facility] Gross Description A. Received [...] A1-A3. TOLU CHRIS 08/16/2022 10:29 08/18/2022 11:15 [facility] Performing Lab [facility] 08/18/2022 11:15 [facility] Scanned Images 08/18/2022 11:15 [facility] Tissue TISSUE SPECIMEN FROM SKIN / Unknown 08/14/2022 10:25 EDT 08/15/2022 21:12 EDT Zeyad MIRAMONTES PATHOLOGY ORDERABL ES [facility] [address] [place] [address] documented in this encounter Visit Diagnoses Diagnosis Neoplasm of unspecified behavior of bone, soft tissue, and skin documented in this encounter Care Teams Sampling Expert Relationship Specialty Start Date End Date Maximilian Fall MD PCP - General 03/18/16 documented as of this encounter
--- OUTSIDE RECORDS SUMMARY | 2024-07-15 13:35 | XMS_ITS | Encounter Summary ---
Author Organization [facility] Address [facility] [place] [address] Care Team Providers Care Motor Rebuilder Name Role Phone Deacon Watters APRN Primary Care Provider [phone] Encounter Details Date Type Department Care Team (Late st Contact Info) Description 07/05/2024 Abstract Cardiology at [address] [address] Lesa Duncan, RN Social History Tobacco Use Types Packs/Day Years Used Date Smoking Tobacco: Former Cigarettes 4 30 1 12/01/1961 - 10/01/1992 Smokeless Tobacco: Former Chew Comments:Denies vaping Alcohol Use Standard Drinks/Week Comments Yes 0 (1 standard drink = 0.6 oz pur e alcohol) twice a year [facility] Utilities Answer Date Recorded In the past 12 months has e [employer], gas, oil, or water [email or web address] threatened to shut off services in your [...] were you homeless or living in a usp (including now)? No 07/01/2024 IPV Inpatient Questions [...] EDT Office [place] [address] Dion Barlow MD [facility] [place] [address] 09/01/2024 9:40 AM EDT Office Visit Cardiology at [address] [phone] Franky Shaver MD [facility] [place] [address] 09/01/2024 11:20 AM EDT Office Visit Dermatology at [facility] [address] [place] [phone] Gómez Mercer MD [facility] DR [place] [address] 09/21/2024 2:45 PM EDT Office Visit [facility] [place] [address] Trung Hoyos MD [facility] [place] [address] documented as of this encounter Visit Diagnoses Not on filedocumented in this encounter Care Teams Motor Rebuilder Relationship Specialty Start Date End Date Deacon Watters, EMERGENCY MEDICAL SERVICE MANAGER [address] [place] [address] [address] [place] [address] PCP - General Family Medicine 02/17/22 documented as of this encounter
--- OUTSIDE RECORDS SUMMARY | 2024-07-15 13:35 | XMS_ITS | Encounter Summary ---
Author Organization [facility] Address [address] [place] [address] Care Team Providers Care X Ray Inspector Name Role Phone More Naylor MD Primary Care Provider [phone] Encounter Details Date Type Department Care Team (Late st Contact Info) Description 10/30/2016 Results Only [facility]- [facility] [phone] Tamara Reza, [address] [place], [place] [phone] Social History Tobacco Use Types Packs/Day Years [...] ? NAYA RODRIGUEZ ? Accession #: ? [id number] ? : ? 1950 (Age: 66) ??M [...] tumor. This sample was processed at the [facility]. ??The slides were reviewed and the final diagnosis was made at [facility], [address] [place] [address]. ([place] License Number [id number]) Document reviewed and electronically signed by: AMIE [...] prior to verbal report. ??Procedure performed at [facility]. ??Staining of frozen section is adequate. [...] prior to verbal report. ??Procedure performed at [facility]. Staining of frozen section is adequate. [...] Chowdhury 11/03/2016 3:11 PM End of Report [facility] 10/30/2016 11:3 0 EST 11/01/2016 11:30 EST Tamara Reza DO PATHOLOGY ORDER ASHLIE [facility] [address] [place] [address] documented in this encounter Visit Diagnoses Not on filedocumented in this encounter Care Teams X Ray Inspector Relationship Specialty Start Date End Date More Naylor MD PCP - General 03/18/16 documented as of this encounter
--- OUTSIDE RECORDS SUMMARY | 2024-07-15 13:35 | XMS_ITS | Encounter Summary ---
Author Organization [facility] Address [address] [place] [address] Care Team Providers Care Outpatient Phlebotomist Name Role Phone Sharad Leon MD Primary Care Provider Unavail able Encounter Details Date Type Department Care Team (Late st Contact Info) Description 03/13/2016 Results Only [facility]- [facility] [phone] Marcy Laurent, DO [address] [place] [address] Social History Tobacco Use Types [...] ? BRIAN RODRIGUEZ ? Accession #: ? [id number] ? : ? 1950 (Age: 65) ??M [...] adjacent to the proximal stapled margin, two account service representative cross sections and one-half of the longitudinally bisected distal tip are submitted in 1. Dr. Beth 03/17/2016 3:13 PM End of Report [facility] 03/13/2016 19:4 2 EDT 03/14/2016 19:42 EDT Marcy Laurent DO PATHOLOGY ORDERABLES [facility] [address] [place] [address] * SUSCEPTIBILITY (03/13/2016 12:15 EDT) Result ESCHERICHIA COLI Organism identification performed by client. 03/17/2016 7:51 EDT [facility] URINE / Unknown 03/13/2016 1 [...] - GENER AL ORDERABLES Performing Organization Address City/[facility] Co de Phone Number [facility] [address] [place] [address] documented in this encounter Visit Diagnoses Not on filedocumented in this encounter Care Teams Outpatient Phlebotomist Relationship Specialty Start Date End Date Sharad Leon MD PCP - General 12/07/09 03/17/16 documented as of this encounter
--- OUTSIDE RECORDS SUMMARY | 2024-07-15 13:35 | XMS_ITS | Encounter Summary ---
Author Organization [facility] Address [address] [place] [address] Care Team Providers Care Hvac Sales Representative Name Role Phone Maximilian Fall MD Primary Care Provider Encounter Details Date Type Department Care Team (Latest Contact Info) Description 09/04/2016 8:11 EDT - 09/04/2016 23:59 EDT Hospital Encounter [address] [address] Unknown, Provider, Discharge Disposition: Home or Self Care Social History Tobacco Use Types Packs/Day Years Used Date Smoking Tobacco: Never Assessed Sex and Gender Information Value Date Recorded Sex Assigned at Not on file Gender Identity Not on file Sexual Orientation Not on file documented as of this encounter Discharge Disposition Disposition Code Departure Means Destination Home or Self Alf documented in this encounter Plan of Treatment Not on file documented as of this encounter Visit Diagnoses Not on filedocumented in this encounter Care Teams Hvac Sales Representative Relationship Specialty Start Date End Date Maximilian Fall MD PCP - General 03/18/16 documented as of this encounter
--- OUTSIDE RECORDS SUMMARY | 2024-07-15 13:35 | XMS_ITS | Encounter Summary ---
Author Organization [facility] Address [facility] [place] [address] Care Team Providers Care Radio Tower Technician Name Role Phone Deacon Watters APRN Primary Care Provider [phone] Reason for Visit * Reason Onset Date Comments Referral 07/05/2024 Coronary Artery Disease 07/05/2024 Encounter Details Date Type Department Care Team (Late st Contact Info) Description 07/05/2024 Telephone Cardiology at [address] [address] Lesa Duncan, cutlet maker pork; Coronary Artery Disease Social History Tobacco Use Types Packs/Day Years Used Date Smoking Tobacco: Former Cigarettes 4 30 1 12/01/1961 - 10/01/1992 Smokeless Tobacco: Former Chew Comments:Denies vaping Alcohol Use Standard Drinks/Week Comments Yes 0 (1 standard drink = 0.6 oz pur e alcohol) twice a year [facility] Utilities Answer Date Recorded In the past 12 months has e [employer], gas, oil, or water [employer] threatened to shut off services in your [...] any time in the past 12 m [facility], were you homeless or living in a long-term (including now)? No 07/01/2024 IPV Inpatient Questions [...] were not included. Heart and Vascular Clinics [facility] Cardiology Clinic [address] [place] [address] [place] [address] Brian Rodriguez was discharged from [facility] with a referral to see veterinary surgeon Dr. Franky Shaver following NSTEMI June 30. Brian Rodriguez is a 74 y.o. male with history of HTN, HLD, migraines, DM2, and UC who presented to [facility] for chest pain and was transferred to [facility] for NSTEMI found to [...] 3.66) performed by Dion Osullivan MD at [facility] ENDOSCOPY PRO COLONOSCOPY, BIOPSY N/A 02/22/2019 COLONOSCOPY FLEXIBLE, WITH BX (WRVU 3.66) performed by Dion Osullivan MD at [facility] ENDOSCOPY PRO COLONOSCOPY, BIOPSY N/A 03/28/2022 COLONOSCOPY FLEXIBLE, WITH BX (WRVU 3.66) performed by Mona Turner MD at [facility] ENDOSCOPY PRO COLONOSCOPY, BIOPSY N/A 01/20/2024 COLONOSCOPY FLEXIBLE, WITH BX (WRVU 3.56) performed by Anthony Hamlin MD at [facility] ENDOSCOPY PRO COLONOSCOPY, DIAGNOSTIC 11/27/2011 COLONOSCOPY, DIAGNOSTIC performed by Dion OSULLIVAN at [facility] ENDOSCOPY PRO COLONOSCOPY, DIAGNOSTIC 07/13/2014 COLONOSCOPY, DIAGNOSTIC performed by Dion Osullivan MD at [facility] ENDOSCOPY PRO COLONOSCOPY, REMV LESN, SNARE N/A 02/22/2019 COLONOSCOPY, POLYPECTOMY, REMOVAL LESION BY SNARE (WRVU 4.67) performed by Dion Osullivan MD at [facility] ENDOSCOPY PRO COLONOSCOPY, REMV LESN, SNARE N/A 02/26/2021 COLONOSCOPY, POLYPECTOMY, REMOVAL LESION BY SNARE (WRVU 4.67) performed by Dion Osullivan MD at [facility] ENDOSCOPY PRO SIGMOIDOSCOPY, DIAGNOSTIC 03/16/2012 FLEXIBLE SIGMOIDOSCOPY performed by YUDI MALLOY at [facility] ENDOSCOPY PRO UPPER GI ENDOSCOPY, DIAGNOSTIC N/A 04/28/2019 EGD, UPPER GI ENDOSCOPY performed by Iza Coates MD at [facility] ENDOSCOPY UPPER GI ENDOSCOPY, EXAM 10/01/2012 UPPER GI ENDOSCOPY performed by Dion OSULLIVAN at [facility] ENDOSCOPY Current Medications. dicyclomine (Bentyl) 20 mg [...] the patient to see Cardiology here in [place]. documented in this encounter Plan of Treatment Upcoming Encounters Date Type Department Care Team (Late st Contact Info) Description 08/15/2024 9:00 AM EDT Office [place] [address] Dion Osullivan MD [facility] [place] [address] 09/01/2024 9:40 AM EDT Office Visit Cardiology at [address] [place] [address] Franky Shaver MD [facility] [place] [address] 09/01/2024 11:20 AM EDT Office Visit Dermatology at [facility] [address] [place] [address] Gómez Mercer MD [facility] [address] [place] [address] 09/21/2024 2:45 PM EDT Office Visit [facility] and Sp[facility] [place] [address] Trung Hoyos MD [facility] [place] [address] documented as of this encounter Visit Diagnoses Not on filedocumented in this encounter Care Teams Radio Tower Technician Relationship Specialty Start Date End Date Deacon Watters, SAFETY OFFICER [address] [place] [address] PCP - General Family Medicine 02/17/22 documented as of this encounter
--- OUTSIDE RECORDS SUMMARY | 2024-07-15 13:35 | XMS_ITS | Encounter Summary ---
Author Organization [facility] Address [address] [place] [address] Care Team Providers Care Rn Hemodialysis Name Role Phone Sharad Mcleod MD Primary Care Provider Unavail able Encounter Details Date Type Department Care Team (Late st Contact Info) Description 10/22/2004 Results Only [facility] conversion [address] [place] [address] Maximilian Quiroga MD [address] [place] [phone] Social History Tobacco Use Types Packs/Day Years [...] ? NAYA RODRIGUEZ ? Accession #: ? [id number] ? : ? 1950 (Age: 54) ??M [...] seen in this biopsy. ??(Dr. Hair)/[facility] ?? Document reviewed and electronically signed by: [...] submitted intact in one cassette. ?? (Dr. Terrazas-MS)/[facility] ?? End of Report [facility] 10/22/2004 10/22/2004 14: 58 EST Maximilian Quiroga MD PATHOLOGY ORDERABLES [facility] [address] [place] [address] documented in this encounter Visit Diagnoses Not on filedocumented in this encounter Care Teams Rn Hemodialysis Relationship Specialty Start Date End Date Sharad Mcleod MD PCP - General 12/07/09 03/17/16 documented as of this encounter
--- OUTSIDE RECORDS SUMMARY | 2024-07-15 13:35 | XMS_ITS | Encounter Summary ---
Author Organization [facility] Address [address] [place] [address] Care Team Providers Care School Photographs Detailer Name Role Phone Unavailable Primary Care Provider Unavailabl e Encounter Details Date Type Department Care Team (Late st Contact Info) Description 10/09/2008 Before PRISM Converted Visit (Maple) [facility] - Maple conversion [address] [place] [address] Yeni Agustin MD [address] [place] [address] Social History Tobacco Use Types Packs/Day Years [...] ? RODRIGUEZ, BRIAN ? Accession #: ? [id number] ? : ? 1950 (Age: 58) ??M [...] PATHOLOGY ORDERABLE S [facility] [address] [place] [address] documented in this encounter Visit Diagnoses Not on filedocumented in this encounter
--- OUTSIDE RECORDS SUMMARY | 2024-07-15 13:35 | XMS_ITS | Encounter Summary ---
Author Organization [facility] Address [address] [place] [address] Care Team Providers Care Enterprise Systems Manager Name Role Phone Maximilian Fall MD Primary Care Provider [phone] Encounter Details Date Type Department Care Team (Latest Contact Info) Description 12/31/2017 9:43 EST - 12/31/2017 23:59 EST Hospital Encounter [address] [address] Unknown, Provider, Discharge Disposition: Home or Self Care Social History Tobacco Use Types Packs/Day Years Used Date Smoking Tobacco: Never Assessed Sex and Gender Information Value Date Recorded Sex Assigned at Not on file Gender Identity Not on file Sexual Orientation Not on file documented as of this encounter Discharge Disposition Disposition Code Departure Means Destination Home or Self Usp documented in this encounter Plan of Treatment Not on file documented as of this encounter Visit Diagnoses Not on filedocumented in this encounter Care Teams Enterprise Systems Manager Relationship Specialty Start Date End Date Maximilian Fall MD PCP - General 03/18/16 documented as of this encounter
--- OUTSIDE RECORDS SUMMARY | 2024-07-15 13:35 | XMS_ITS | Encounter Summary ---
Author Organization [facility] Address [address] [place] [address] Care Team Providers Care Beam Saw Operator Name Role Phone Sharad Mcleod MD Primary Care Provider Unavail able Encounter Details Date Type Department Care Team (Late st Contact Info) Description 04/08/2010 Results Only [facility] Services - [facility] ([facility]) [address], [place] [id number] Marcelo Agustin, DO [address] [place], [place] [address] Social History Tobacco Use Types Packs/Day Years [...] ? RODRIGUEZ, BRIAN ? Accession #: ? [id number] ? : ? 1950 (Age: 59) ??M [...] in toto as (D). (Davina Ordoñez)/[facility] ? End of Report ? [facility] 04/08/2010 04/09/2010 16: 29 EDT Marcelo Agustin DO PATHOLOGY ORDER ASHLIE Performing Organization Address City/State/[facility] Co de Phone Number [facility] [address] [place] [address] documented in this encounter Visit Diagnoses Not on filedocumented in this encounter Care Teams Beam Saw Operator Relationship Specialty Start Date End Date Sharad Mcleod MD PCP - General 12/07/09 03/17/16 documented as of this encounter
--- OUTSIDE RECORDS SUMMARY | 2024-07-15 13:35 | XMS_ITS | Encounter Summary ---
Author Organization [facility] Address [address] [place] [address] Care Team Providers Care Loft Worker Name Role Phone More Fall MD Primary Care Provider [phone] Encounter Details Date Type Department Care Team (Late st Contact Info) Description 09/04/2016 Results Only [facility] [phone] More Fall MD [address] [place] [id number] Social History Tobacco Use Types Packs/Day Years [...] ? NAYA RODRIGUEZ ? Accession #: ? [id number] ? : ? 1950 (Age: 66) ??M [...] (ASCP) 09/05/2016 2:42 PM End of Report [facility] 09/04/2016 11:2 3 EDT 09/05/2016 11:23 EDT More Fall MD PATHOLOGY ORDERABLES [facility] [address] [place] [address] documented in this encounter Visit Diagnoses Not on filedocumented in this encounter Care Teams Loft Worker Relationship Specialty Start Date End Date More Fall MD PCP - General 03/18/16 documented as of this encounter
--- OUTSIDE RECORDS SUMMARY | 2024-07-15 13:35 | XMS_ITS | Clinical Summary ---
Author Organization [facility] Address [facility] [place] [address] Care Team Providers Care Traffic Inspector Name Role Phone Deacon Watters APRN Primary Care Provider [phone] Allergies Active Allergy Reactions Criticality Noted Date [...] 10/01/2011 Overview (12/06/2023): Colonoscopy 04/08/10 (Dr. Gomes [facility]) - inflammation only within the rectum and sigmoid; extent of the exam was to the hepatic flexure; biopsies proximal to the sigmoid nl Repeat exam 11/27/11 ([facility]): mildly active colitis in [...] ascending colon. Several HPs and one TA. [place] 03/2022 - [place] 1 limited to rectosigmoid, diverticulosis. No dysplasia TREATMENT: cortenemas, Asacol, Rowasa, prednisone, and imodium Diabetes mellitus 10/01/2011 Hearing loss 10/01/2011 GERD (gastroesophageal reflux disease) 1 Hydrocele 10/01/2011 Asthma 10/01/2011 Encounters Date Type Department Care Team Description 07/05/2024 Abstract Cardiology at [address] [address] Lesa Duncan, RN 07/05/2024 Telephone Cardiology at [address] [address] Lesa Duncan, cnc set up operator; Coronary Artery Disease 07/01/2024 2:30 PM EDT - 07/01/2024 3:30 PM EDT [place] [address] Lizzette Hayden MD CARDIAC CATHETERIZATION 07/01/2024 [place] [address] Dion Barlow MD 06/30/2024 3:44 PM EDT - 07/04/2024 3:25 PM EDT Hospital Encounter Heart and Vascular Unit Level 3 [place] [phone] Triston Godinez MD Welch, Terrence D, MD NSTEMI (non-ST elevated myocardial infarction) (Primary Dx) Discharge Disposition: Home 06/29/2024 7:25 PM EDT Ancillary Procedure [place] [phone] Deacon Watters, [employer]IL[employer]ER [employer] 06/29/2024 [place] [address] Ramakrishna Elliott MD 06/29/2024 External [place] [address] 06/22/2024 8:00 AM EDT Office Visit [place] [address] Trung Hoyos MD Radiculopathy of cervical region (Primary Dx) 06/22/2024 Travel 06/09/2024 [place] [address] Marcelle Weinberg, JAZMINE 06/07/2024 1:20 PM EDT Office Visit Dermatology at [address] [address] Gómez Mercer MD Tinea cruris 06/07/2024 12:55 PM EDT - 06/07/2024 11:59 PM EDT Hospital [place] [address] Left sided colitis without complications Discharge Disposition: Home 06/06/2024 12:56 PM EDT - 06/06/2024 11:59 PM EDT Hospital [place] [address] Left sided colitis without complications Discharge Disposition: Home 06/06/2024 8:00 AM EDT Office [place] [address] Marcelle Weinberg, [employer] Left sided colitis without complications 06/06/2024 [place] [address] Marcelle Weinberg, JAZMINE 06/06/2024 Travel from Last 3 Months Social History Tobacco Use Types Packs/Day Years Used Date Smoking Tobacco: Former Cigarettes 4 30 1 12/01/1961 - 10/01/1992 Smokeless Tobacco: Former Chew Comments:Denies vaping Alcohol Use Standard Drinks/Week Comments Yes 0 (1 standard drink = 0.6 oz pur e alcohol) twice a year [facility] Utilities Answer Date Recorded In [...] were you homeless or living in a custodial (including now)? No 07/01/2024 DH IPV Inpatient [...] 9:00 AM EDT Office [place] [phone] Dion Barlow MD [facility] [place] [address] 09/01/2024 9:40 AM EDT Office Visit Cardiology at [address] [address] Franky Shaver MD [facility] [place] [place] [address] 09/01/2024 11:20 AM EDT Office Visit Dermatology at [facility] [address] [place] [phone] Gómez Mercer MD [facility] DR EDD[place] [address] 09/21/2024 2:45 PM EDT Office Visit [place] [phone] Trung Hoyos MD [facility] [place] [address] Health Maintenance Due Date Last Done Comments [...] PM EDT URINALYSIS BEAKER MICROSCPIC REFLEX EXAM ([facility]) Routine 07/03/2024 3:02 PM EDT URINALYSIS MICROSCOPIC [...] resultswithin the time period is included. Pathologist [facility] [place] Glucometer, POC 274(H) 65 - 199 mg/dL 07/04/2024 2:12 PM EDT [facility] Comment:Supplemental ranges: <140 mg/dL before meals <180 mg/dL all other times of the day. Blood CAPILLARY BLOOD / Unknown 07/04/2024 1:49 PM EDT 07/04/2024 2:12 PM EDT Armond Denny MD POINT OF CARE TEST O RDERABLES [facility] [place] [address] * Scan Doc: Telemetry Strips (07/04/2024 7:32 AM EDT) Only the most recent of18 resultswithin the time period is included. Narrative 07/04/2024 7:32 AM EDT Ordered by an unspecified provider. Scanning Provider MEDIA MGR SCAN EXT O RDR/RSLT * (ABNORMAL) CBC (with Diff) (07/04/2024 1:43 AM EDT) Only the most recent of5 resultswithin the time period is included. [facility] White Blood Cell 5.05 4.00 - 9.50 x10(3)/mc L 07/04/2024 2:00 AM EDT [facility] Red Blood Cell 3.11(L) 4.58 - 5.54 x10(6)/mc L 07/04/2024 2:00 AM EDT [facility] Hemoglobin 10.5(L) 13.7 - 16.5 g/dL 07/04/2024 2:00 AM EDT [facility] Hematocrit 31.5(L) 40.5 - 48.5 % 07/04/2024 2:00 AM EDT [facility] Mean Cell Volume 101.3(H) 82.9 - 93.1 fL 07/04/2024 2:00 AM EDT [facility] Mean Cell Hemoglobin 33.8(H) 27.5 - 32.1 pg 07/04/2024 2:00 AM [facility] Mean Cell Hemoglobin Concentration 33.3 32.0 - 35.7 g/dL 07/04/2024 2:00 AM [facility] Platelet 145 145 - 357 x10(3)/mc L 07/04/2024 2:00 AM [facility] Mean Platelet Volume 11.5 7.6 - 12.9 fL 07/04/2024 2:00 AM [facility] RDW Standard Deviation 48.2(H) 36.0 - 45.0 fL 07/04/2024 2:00 AM [facility] RDW coefficient of variation 13.1 11.4 - 13.8 % 07/04/2024 2:00 AM [facility] NRBC% auto 0.0 % 07/04/2024 2:00 AM [facility] NRBC Absolute 0.00 0.00 - 0.00 x10(3)/mc L 07/04/2024 2:00 AM [facility] Neutrophil % 65.9 % 07/04/2024 2:00 AM [facility] Neutrophil Absolute 3.33 1.70 - 6.10 x10(3)/mc L 07/04/2024 2:00 AM [facility] Lymph % 20.8 % 07/04/2024 2:00 AM [facility] Lymph Absolute 1.05 0.90 - 3.20 x10(3)/mc L 07/04/2024 2:00 AM [facility] Monocyte % 9.3 % 07/04/2024 2:00 AM [facility] Monocyte Absolute 0.47 0.30 - 0.90 x10(3)/mc L 07/04/2024 2:00 AM [facility] Eos % 3.0 % 07/04/2024 2:00 AM [facility] Eos Absolute 0.15 0.00 - 0.40 x10(3)/mc L 07/04/2024 2:00 AM EDT [facility] Basophil % 0.6 % 07/04/2024 2:00 AM EDT [facility] Baso Absolute 0.03 0.00 - 0.10 x10(3)/mc L 07/04/2024 2:00 AM EDT [facility] Immature Gran % 0.4 % 2:00 AM EDT [facility] Immature Gran Absolute 0.02 0.00 - 0.04 x10(3)/mc L 07/04/2024 2:00 AM EDT [facility] Blood VENOUS BLOOD SPECIMEN / Unknown IP Care Team Draw / Unknown 07/04/2024 1:43 AM EDT 07/04/2024 1:52 AM EDT Triston Godinez MD HEMATOLOGY ORDERABLE S [facility] [place] [address] * Magnesium (07/04/2024 1:43 AM EDT) Only the most recent of4 resultswithin the time period is included. Magnesium 0.80 0.69 - 1.07 mMol/L 07/04/2024 2:23 AM EDT [facility] Blood VENOUS BLOOD SPECIMEN / Unknown IP Care Team Draw / Unknown 07/04/2024 1:43 AM EDT 07/04/2024 1:52 AM EDT Triston Godinez MD CHEMISTRY ORDERABLES Performing Organization Address City/[facility]/ZIP Co de Phone Number [facility] [place] [address] * (ABNORMAL) Basic Metabolic Panel (07/04/2024 1:43 AM EDT) Only the most recent of5 resultswithin the time period is included. Glucose 156 65 - 199 mg/dL 07/04/2024 2:23 AM [facility] Comment:Glucose Concentratio n >=200 mg/dL plus symptoms is consistent with Diabetes Mellitus. Blood Urea Nitrogen 12 10 - 20 mg/dL 07/04/2024 2:23 AM [facility] Creatinine 1.27 0.80 - 1.50 mg/dL 07/04/2024 2:23 AM [facility] Sodium 141 135 - 145 mMol/L 07/04/2024 2:23 AM [facility] Potassium 3.9 3.5 - 5.0 mMol/L 07/04/2024 2:23 AM [facility] Chloride 108(H) 98 - 107 mMol/L 07/04/2024 2:23 AM [facility] Carbon Dioxide 22 22 - 31 mMol/L 07/04/2024 2:23 AM [facility] Anion Gap 11 5 - 15 mMol/L 07/04/2024 2:23 AM [facility] Calcium 9.4 8.5 - 10.5 mg/dL 07/04/2024 2:23 AM [facility] Est Glomerular Filtration Rate - Male 59 mL/min/1. 73 m?? 07/04/2024 2:23 AM [facility] Comment: This patient's estimated GFR was [...] Godinez MD CHEMISTRY ORDERABLES Performing Organization Address [facility] Co de Phone Number [facility] [place] [address] * (ABNORMAL) Urinalysis Microscopic Reflex to Culture (07/03/2024 3:02 PM EDT) RBC, Urine 2 0 - 3 /HPF 07/03/2024 3:40 PM EDT [facility] WBC, Urine 55(H) 0 - 3 /HPF 07/03/2024 3:40 PM EDT [facility] Squamous Epithelial Cells, Urine 1 0 - 5 /HPF 07/03/2024 3:40 PM EDT [facility] Hyaline Casts, Urine 3(H) 0 - 2 /LPF 07/03/2024 3:40 PM EDT [facility] Comment 07/03/2024 3:40 PM EDT [facility] Comment:Interpret results wi th caution, microscopic results are from a suboptimal specimen. Bacteria, Urine Many(A) None /HPF 3:40 PM EDT [facility] Urine URINE SPECIMEN OBTAINED BY CLEAN CATCH PROCEDURE / Unknown Non Blood Collection / Unknown 07/03/2024 3:02 PM EDT 07/03/2024 3:13 PM EDT Armond Denny MD URINE ORDERABLES Performing Organization Address [facility] Co de Phone Number [facility] [place] [address] * Urinalysis Microscopic with Reflex to Culture (07/03/2024 3:02 PM EDT) Urine URINE SPECIMEN OBTAINED BY CLEAN CATCH PROCEDURE / Unknown Non Blood Collection / Unknown 07/03/2024 3:02 PM EDT 07/03/2024 3:13 PM EDT Armond Denny MD URINE ORDERABLES [facility] [place] [address] * (ABNORMAL) Urinalysis with reflex Culture (07/03/2024 3:02 PM EDT) Glucose, Urine Dipstick Negative Negative 07/03/2024 3:40 PM EDT [facility] Protein, Urine Dipstick 30 mg/dL(A) Negative 07/03/2024 3:40 PM EDT [facility] Bilirubin, Urine Dipstick Small(A) Negative 07/03/2024 3:40 PM EDT [facility] Comment:Clinical correlation required for positive Urine Bilirubin results as false positive may occur with some drugs and drug related products. If a false positive is suspected a serum total bilirubin should be considered if clinically indicated. Urobilinogen, Urine Dipstick Normal Normal, 0.2 mg/dL, 1.0 mg/dL 07/03/2024 3:40 PM EDT [facility] pH, Urine (dipstick) 5.5 5.0 - 8.0 07/03/2024 3:40 PM EDT [facility] Blood, Urine Dipstick Negative Negative 07/03/2024 3:40 PM EDT [facility] Ketone, Urine Dipstick Trace(A) Negative 07/03/2024 3:40 PM EDT [facility] Nitrite, Urine Dipstick Positive(A) Negative 07/03/2024 3:40 PM EDT [facility] Leukocytes, Urine Dipstick Moderate(A) Negative 07/03/2024 3:40 PM EDT [facility] Specific [place] Urine Automated 1.024 1.005 - 1.030 07/03/2024 3:40 PM EDT [facility] Appearance, Urine Dipstick Cloudy(A) Clear 07/03/2024 3:40 PM EDT [facility] Color, Urine Dipstick Dark Yellow Yellow, Dark Yellow 07/03/2024 3:40 PM EDT [facility] Urine URINE SPECIMEN OBTAINED BY CLEAN CATCH PROCEDURE / Unknown Non Blood Collection / Unknown 07/03/2024 3:02 PM EDT 07/03/2024 3:13 PM EDT Armond Denny MD URINE ORDERABLES [facility] [place] [address] * (ABNORMAL) Urine culture (07/03/2024 3:02 PM EDT) Urine Culture 50,000-99,000 cfu/ml Escherichia coli(A) VITEK 2 METHOD 07/05/2024 8:01 AM EDT [facility] Urine Culture 10,000-49,000 cfu/ml mixed mucosal harika VITEK 2 METHOD 07/05/2024 8:01 AM EDT [facility] Urine URINE SPECIMEN OBTAINED BY [...] Denny MD MICROBIOLOGY - GENER AL ORDERABLES [facility] [place] [address] * CT Abdomen & Pelvis w Contrast (07/02/2024 3:13 AM EDT) WORKSTATION ID [id number] RAD Anatomical Region Laterality Modality Abdomen, Pelvis [...] who have questions please contact the health rn transitional care that requested your imaging first. ? Narrative [...] patients who have questions please contactthe health rn transitional care that requested your imaging first. Triston Godinez [...] (Bezet) 473 ms MUSE SYSTEM Calculated P [place] 63 degrees MUSE SYSTEM Calculated R [place] 87 degrees MUSE SYSTEM Calculated T [place] 8 degrees MUSE SYSTEM INTERPRETATION Normal sinus [...] Modality Other Narrative 07/01/2024 7:47 PM EDT ?[facility] ? Cardiac Catheterization/Intervention Report ? Patient Name: Naya Rodriguez. ? Procedure Date: 07/01/2024 ? A #: [id number] ? Primary Physician: Mogadam, Emad ? Case #: [id number] ? File Name: [id number] ? Catheterization Order Number: [id number] ? [facility] ? Final Report [place], [place] ? Patient Name: ? Naya M. Rodriguez ?ID#: ?[id number] ? : ?1950 ? Procedure Date: ? [...] was Urgent. The indication for ?the laborer fryer farm visit is ACS less than or equal [...] ? A premounted 2.75 x 22 mm [place] (EILEEN) was deployed ? with a maximum [...] administered prior to arrival in the laborer fryer farm. ?Recommended anti-platelet/anti-thrombotic regimen: ?Continue aspirin 81 mg daily. ?Continue clopidogrel 75 mg daily. ?These recommendations are made at the time of the intervention. Patient ?and provider preferences or a changing clinical situation may require ?modification of this regimen. Consult [facility] Interventional Cardiology for ?questions. ?This patient has [...] against any medical treatment. Consult ?http://tools.acc.org/DAPTriskapp/#!/content/calculator/ or [facility] ?Interventional Cardiology for questions ? Conclusions: ?* [...] M.D. ? Report Finalized: 07/01/2024 ??19:41 ? Report Last Ammended: 07/14/2024 ??18:32 ? Procedure Note Lizzette Hayden MD - 07/14/2024 [facility] Cardiac Catheterization/Intervention Report Patient Name: Naya Rodriguez Procedure Date: 07/01/2024 A #: [id number] Primary Physician: Lizzette Hayden Case #: [id number] File Name: [id number] Catheterization Order Number: [id number] [facility] FinalReport [place], [place] Patient Name: Naya Rodriguez ID#:[id number] :1950 Procedure Date: July 01, 2024 Case [...] patient was designated as ASA Class III. [facility] clinical frailty scale is 4: Vulnerable. Diagnostic Tests: Medications Prior to Procedure: Aspirin, Angiotensin II Receptor Marci and Statin. Indications for Diagnostic Cath: The priority of the diagnostic procedure was Urgent. The indicationfor the laborer fryer farm visit is ACS less than or equal [...] time was 37.0 minutes, dose area product hlt138.00 Gy/cm2 and air kerma was 1,874 mGY. [...] The lesion was predilated with a 2.50mm [id number] MM balloon with a maximum inflation pressure of 14atmospheres. A premounted 2.75 x 22 mm [place] (EILEEN) wasdeployed with a maximum inflation pressure [...] administered prior to arrival in the laborer fryer farm. Recommended anti-platelet/anti-thrombotic regimen: Continue aspirin 81 mg daily. Continue clopidogrel 75 mg daily. These recommendations are made at the time of the intervention.Patient and provider preferences or a changing clinical situation mayrequire modification of this regimen. Consult [facility] Interventional Cardiologyfor questions. This patient has a [...] or against any medical treatment.Consult http://tools.acc.org/DAPTriskapp/#!/content/calculator/ or [facility] Interventional Cardiology for questions Conclusions: * One [...] Lizzette Hayden M.D. Report Finalized: 07/01/2024 19:41 Report Last Ammended: 07/14/2024 18:32 Lizzette Hayden MD CARDIAC CATH ORDERAB LES * Heparin (unfractionated) Level (07/01/2024 10:32 AM EDT) Only the most recent of3 resultswithin the time period is included. UF Heparin 0.31 IU/mL 07/01/2024 11:25 AM EDT [facility] Comment: Heparin (anti-Xa) levels should [...] EDT Triston Godinez MD HEMATOLOGY ORDERABLE S [facility] [place] [address] * (ABNORMAL) Hemogram (07/01/2024 10:32 AM EDT) Only the most recent of2 resultswithin the time period is included. White Blood Cell 7.02 4.00 - 9.50 x10(3)/mc L 07/01/2024 11:20 AM [facility] Red Blood Cell 3.68(L) 4.58 - 5.54 x10(6)/mc L 07/01/2024 11:20 AM [facility] Hemoglobin 12.2(L) 13.7 - 16.5 g/dL 07/01/2024 11:20 AM [facility] Hematocrit 36.5(L) 40.5 - 48.5 % 07/01/2024 11:20 AM [facility] Mean Cell Volume 99.2(H) 82.9 - 93.1 fL 07/01/2024 11:20 AM [facility] Mean Cell Hemoglobin 33.2(H) 27.5 - 32.1 pg 07/01/2024 11:20 AM [facility] Mean Cell Hemoglobin Concentration 33.4 32.0 - 35.7 g/dL 07/01/2024 11:20 AM [facility] Platelet 167 145 - 357 x10(3)/mc L 07/01/2024 11:20 AM EDT [facility] Mean Platelet Volume 11.4 7.6 - 12.9 fL 07/01/2024 11:20 AM EDT [facility] RDW Standard Deviation 46.5(H) 36.0 - 45.0 fL 07/01/2024 11:20 AM EDT [facility] RDW coefficient of variation 12.9 11.4 - 13.8 % 07/01/2024 11:20 AM EDT [facility] NRBC% auto 0.0 % 07/01/2024 11:20 AM [facility] NRBC Absolute 0.00 0.00 - 0.00 x10(3)/mc L 07/01/2024 11:20 AM EDT [facility] Blood VENOUS BLOOD SPECIMEN / Unknown IP Care Team Draw / Unknown 07/01/2024 10:32 AM EDT 07/01/2024 10:54 AM EDT Armond Denny MD HEMATOLOGY ORDERABLE S [facility] [place] [address] * (ABNORMAL) Troponin-T, Yuriy Sensitivity 3 Hour (06/30/2024 11:25 PM EDT) Troponin-T, High Sensitivity 1,274(H) <=22 ng/L 07/01/2024 12:14 AM EDT [facility] Comment: This patient's troponin T [...] troponin value can be found in the [facility] Test Catalog Troponin - https://one-.testcatalog.org/catalogs/565/files/80244 Reference: [place] Definition of Myocardial Infarction. Journal of the [employer] College [employer] Cardiology 2018;72:3584-6708 Troponin-T, HS 3 hr delta 65 ng/L 07/01/2024 12:14 AM EDT [facility] Comment:The 3 hour Troponin T delta value is the absolute difference between the Troponin T concentrations of the initial and subsequent sample collected between 2 h: 45 min and 6 h following the initial collection Blood VENOUS BLOOD SPECIMEN / Unknown IP Care Team Draw / Unknown 06/30/2024 11:25 PM EDT 06/30/2024 11:47 PM EDT Triston Godinez MD CHEMISTRY ORDERABLES [facility] [place] [address] * (ABNORMAL) Troponin-T, High Sensitivity 1 Hour (06/30/2024 8:22 PM EDT) Pathologist [facility] [place] Troponin-T, High Sensitivity 1,234(H) <=22 ng/L 06/30/2024 9:22 PM EDT [facility] Comment: This patient's troponin T [...] troponin value can be found in the [facility] Test Catalog Troponin - https://[facility].testcatalog.org/catalogs/565/files/57628 Reference: [place] Definition of Myocardial Infarction. Journal of the [employer] College of Cardiology 2018;72:5421-0632 Troponin-T, HS 1 hr delta 06/30/2024 9:22 PM EDT [facility] Comment:Delta troponin value not calculated, sample collected outside of delta calculation time limit. Blood VENOUS BLOOD SPECIMEN / Unknown Venipuncture / Unknown 06/30/2024 8:22 PM EDT 06/30/2024 8:40 PM EDT Triston Godinez MD CHEMISTRY ORDERABLES [facility] [place] [address] * XR Abdomen Flat & Upright (06/30/2024 6:56 PM EDT) Net Element Signature WORKSTATION ID [id number] RAD Anatomical Region Laterality Modality Abdomen N/A Digital Radiogra phy Impressions 06/30/2024 9:12 PM EDT No obstruction or perforation. Thank you for letting us participate in the care of this patient. ??If you are a health care provider and have any questions regarding this report, please contact the number below. ??For patients who have questions please contact the health rn transitional care that requested your imaging first. ? Narrative 06/30/2024 9:12 PM EDT EXAMINATION: XR [...] patients who have questions please contactthe health rn transitional care that requested your imaging first. Triston Godinez MD IMG DX ORDERABLES * (ABNORMAL) Troponin-T, High Sensitivity (06/30/2024 6:09 PM EDT) [facility] Troponin-T, High Sensitivity Initial 1,209([facility] ) <=22 ng/L 06/30/2024 7:23 PM EDT [facility] Comment: This patient's troponin T [...] troponin value can be found in the [facility] Test Catalog Troponin - https://[email or web address].testcatalog.org/catalogs/565/files/23428 Reference: [place] Definition of Myocardial Infarction. Journal of the [employer] College of Cardiology 2018;72:6235-6758 Blood VENOUS BLOOD SPECIMEN / Unknown Venipuncture / Unknown 06/30/2024 6:09 PM EDT 06/30/2024 6:18 PM EDT Triston Godinez MD CHEMISTRY ORDERABLES Performing Organization Address City/[facility]/ZIP Co de Phone Number [facility] [place] [address] * TSH (06/30/2024 6:09 PM EDT) Thyroid Stimulating Hormone 2.80 0.27 - 4.20 mcIU/mL 06/30/2024 6:51 PM EDT [facility] Blood VENOUS BLOOD SPECIMEN / Unknown Venipuncture / Unknown 06/30/2024 6:09 PM EDT 06/30/2024 6:18 PM EDT Triston Godinez MD CHEMISTRY ORDERABLES [facility] [place] [address] * (ABNORMAL) pro-Brain Natriuretic Peptide (06/30/2024 6:09 PM EDT) NT-proBNP 2,259(H) <=449 pg/mL 06/30/2024 6:51 PM EDT [facility] Blood VENOUS BLOOD SPECIMEN / Unknown Venipuncture / Unknown 06/30/2024 6:09 PM EDT 06/30/2024 6:18 PM EDT Triston Godinez MD CHEMISTRY ORDERABLES [facility] [place] [address] * Lipid Panel (Reflex Direct LDL) (06/30/2024 6:09 PM EDT) Cholesterol, Total 197 mg/dL 06/30/2024 6:51 PM EDT [facility] Comment: Desirable: < 200 mg/dL Borderline High: 200 - 239 mg/dL High: > or = 240 mg/dL Triglyceride 230 mg/dL 06/30/2024 6:51 PM EDT [facility] Comment: Normal: <150 mg/dL Borderline High: 150-199 mg/dL High: 200-499 mg/dL Very High: > or =500 mg/dL HDL Cholesterol 36 mg/dL 6:51 PM EDT [facility] LABORATORY Comment:Males: High Risk: <4 0 mg/dL LDL Cholesterol 120 mg/dL 6:51 PM EDT [facility] Comment: Desirable: <100 mg/dL Above Desirable: 100-129 mg/dL Borderline High: 130-159 mg/dL High: 160-189 mg/dL Very High: > or =190 mg/dL Note: LDL calculation updated to the NIH LDL formula as of 06/26/2024 Non-HDL Cholesterol 161 mg/dL 06/30/2024 6:51 PM EDT [facility] Comment: Desirable: <130 mg/dL Above Desirable: 130-159 mg/dL Borderline High: 160-189 mg/dL High: 190-219 mg/dL Very High: > or = 220 mg/dL Blood VENOUS BLOOD SPECIMEN / Unknown Venipuncture / Unknown 06/30/2024 6:09 PM EDT 06/30/2024 6:18 PM EDT [facility] LABORATORY - 06/30/2024 6:51 PM EDT [...] artery disease) Triston Godinez MD CHEMISTRY ORDERABLES [facility] [place] [address] * (ABNORMAL) Hemoglobin A1c (06/30/2024 6:08 PM EDT) [facility] Hemoglobin A1c 7.3(H) 4.3 - 5.6 % 06/30/2024 9:03 PM EDT [facility] Comment: Per ADA guidelines, without [...] red blood cell turnover may not be manufacturer's service representative of glycemic control. Reference Interval: 4.3 - 5.6% 5.7 - 6.4%: Consistent with prediabetes >=6.5%: Consistent with diagnosis of diabetes mellitus Estimated Average Glucose 06/30/2024 9:03 PM EDT [facility] Comment:Not Calculated. Blood VENOUS BLOOD SPECIMEN / Unknown Venipuncture / Unknown 06/30/2024 6:08 PM EDT 06/30/2024 6:18 PM EDT Narrative [facility] - 06/30/2024 9:03 PM EDT Estimated average glucose (eAG) is calculated from the equation described in: John ELLISON, Inna J, Nic R, et al. ??Translating the A1C assay into estimated average glucose values. ??Diabetes Care 2008:31(8):0154-4244. Additional resources are available on the ADA website (diabetes.org). Triston Godinez MD CHEMISTRY ORDERABLES Performing Organization Address [facility]/State/ZIP Co de Phone Number [facility] [place] [address] * ECHO COMPLETE W CONTRAST (06/30/2024 5:22 [...] NSTEMI (non-ST elevation myocardial infarction) Exam Location: [facility]. ? Conclusions -Left ventricular systolic function is moderately reduced. The left ventricular ejection fraction is 36% by Dowd's biplane. The anterolateral and inferolateral barahona are akinetic. The anterior wall is hypokinetic. -Right ventricle is mildly dilated. Systolic function is normal. -No significant valve disease. -See report for additional findings. No prior study is available. Procedure Complete-[id number]. Image enhancement Optison was used for left [...] - 06/30/2024 Version: 1 Name: NAYA RODRIGUEZ Toan Study Date: 06/30/2024,4: 39 PM BP: 137 / 78 mmHg Patient Location:L3WB^374^A : 1950 (MM/DD/YYYY) Height: 193 cm Age: 74 Years Weight: 113 kg Gender: Male BSA: 2.43 m?? Ordering Physician: TRISTON GODINEZ Referring Physician: KENJI THOMAS Performed By: Carol Villarreal Reason For Study: NSTEMI (non-ST elevation myocardial infarction) Exam Location: [facility]. Conclusions -Left ventricular systolic function is moderately reduced. The leftventricular ejection fraction is 36% by Dowd's biplane. The anterolateral andinferolateral barahona are akinetic. The anterior wall is hypokinetic. -Right ventricle is mildly dilated. Systolic function is normal. -No significant valve disease. -See report for additional findings. No prior study is available. Procedure Complete-[id number]. Image enhancement Optison was used for left [...] DX Chest (06/29/2024 7:22 PM EDT) Narrative DH RAD - 06/29/2024 7:22 PM EDT This exam is auto-finalizing. It's purpose is for storage only. Deacon Watters BOILERMAKER SHIP IMG FILM LIBRARY O RDERABLES [place], [place] * External Cardiology Result (06/29/2024 4:33 PM EDT) Anatomical Region Laterality Modality Other Historical Provider EXTERNAL CARDIOLO GY RESULT * Campylobacter Antigen (06/07/2024 9:00 AM EDT) Campylobacter Ag Immunoassay Negative for Campylobacter Antigen [facility] Stool 06/07/2024 9:00 AM EDT 06/07/2024 1:32 PM EDT Narrative Resulting Agency Comment Spec In Lab Marcelle Weinberg BOIL[employer]MAKER [employer]IP MICROBIOLOGY - GE NERAL ORDERABLES Performing Organization Address [facility] Co de Phone Number [facility] [place] [address] * Shiga Toxin Detection (06/07/2024 9:00 AM EDT) Shiga Toxin Assay EIA Negative for Shiga Toxin 1 EIA Negative for Shiga Toxin 2 [facility] Stool 06/07/2024 9:00 AM EDT 06/07/2024 1:32 PM EDT Narrative Resulting Agency Comment Spec In Lab Marcelle Weinberg [employer]IL[employer]MAK[employer] MICROBIOLOGY - GE NERAL ORDERABLES Performing Organization Address City/[facility]/ZIP Co de Phone Number [facility] [place] [address] * Stool culture (06/07/2024 9:00 AM EDT) Stool Culture No enteric pathogens isolated [facility] Stool 06/07/2024 9:00 AM EDT 06/07/2024 1:32 PM EDT Narrative Resulting Agency Comment Spec In Lab Marcelle Weinberg BOIL[employer]MAK[employer] MICROBIOLOGY - GE NERAL ORDERABLES Performing Organization Address City/[facility]/ZIP Co de Phone Number [facility] [place] [address] * C. Difficile Screen (06/06/2024 5:30 PM EDT) C Diff Interp Negative Negative [facility] Comment: Ag/Tox Neg C. diff?? Negative Clostridium difficile is not present in the specimen. If patient is having diarrhea suspected to be from an infectious cause, then Soap & Water Contact Precautions are still required. Stool 06/06/2024 5:30 PM EDT 06/07/2024 1:32 PM EDT Narrative Resulting Agency Comment Spec In Lab Marcelle Weinberg BOILERMAKER SHIP MICROBIOLOGY - GE NERAL ORDERABLES Performing Organization Address [facility] Co de Phone Number [facility] [place] [address] * (ABNORMAL) Calprotectin, Stool (06/06/2024 5:30 PM EDT) Calprotectin, Stool 112(H) <=79 mcg/g [facility] Comment: Calprotectin Concentration ? Interpretation ? < 80 mcg/g ?Normal ? 80 ? 160 mcg/g ?Borderline ? >160 mcg/g ?Elevated Stool 06/06/2024 5:30 PM EDT 06/07/2024 1:07 PM EDT Narrative Resulting Agency Comment Spec In Lab Marcelle Weinberg BOIL[employer]MAKER [employer]IP BODY FLUIDS AND S TOOLS ORDERABLES Performing Organization Address [facility] de Phone Number [facility] [place] [address] * (ABNORMAL) CRP, acute inflammation (06/06/2024 9:04 AM EDT) C-Reactive Protein 6.4(H) <=4.9 mg/L [facility] Blood 06/06/2024 9:04 AM EDT 06/06/2024 9:12 AM EDT Narrative Resulting Agency Comment Spec In Lab Marcelle Weinberg BOIL[employer]MAKER SHIP CHEMISTRY ORDERAB LES [facility] [place] [address] * Differential, Automated (06/06/2024 9:04 AM EDT) Neutrophil % 70.3 % [facility] Neutrophil Absolute 4.36 1.70 - 6.10 x10(3)/[facility] LAB[facility] Lymph % 19.7 % [facility] Lymphocytes Abs 1.2 0.9 - 3.2 x10(3)/[facility] LABOR[facility]ORY Monocyte % 7.7 % [facility] Monocyte Abs 0.5 0.3 - 0.9 x10(3)/[facility] LABOR[facility]ORY Eos % 1.3 % [facility] Eosinophils Abs 0.1 0.0 - 0.4 x10(3)/[facility] LABORATORY Basophil % 0.5 % [facility] Baso Absolute 0.0 0.0 - 0.1 x10(3)/[facility] LABORATORY Immature Gran % 0.50 % [facility] Comment: Immature granulocytes(IG's)percentage and absolute count will include metamyelocytes, myelocytes, and promyelocytes. Blood smears from CBCs yielding IG's will be scanned manually for concordance. If this scan disagrees with the automated IG or if promyelocytes are noted, a manual differential will be performed. Immature Gran Absolute 0.03 0.00 - 0.04 x10(3)/[facility] LAB[facility] Blood 06/06/2024 9:04 AM EDT 06/06/2024 9:12 AM EDT Narrative Resulting Agency Comment Spec In Lab Marcelle Weinberg [employer] HEMATOLOGY ORDERA BLES Performing Organization Address City/[facility]/ZIP Co de Phone Number [facility] [place] [address] * Sedimentation rate (06/06/2024 9:04 AM EDT) Sedimentation Rate Automated 38 3 - 46 mm/hr [facility] [...] APRN HEMATOLOGY ORDERA BLES Performing Organization Address [facility] Co de Phone Number [facility] [address] * Comprehensive metabolic panel (non-fasting) (06/06/2024 9:04 AM EDT) Glucose 136 65 - 199 mg/dL [facility] Comment:Diabetes: >=200 mg/d L plus symptoms Blood Urea Nitrogen 16 10 - 20 mg/dL [facility] Creatinine 1.05 0.80 - 1.50 mg/dL [facility] Sodium 144 135 - 145 mmol/L [facility] Potassium 4.2 3.5 - 5.0 mmol/L [facility] Comment: Please note: ??Patients with WBC >100,000 may have falsely elevated Potassium levels. ??For accurate Potassium quantification in these patients send serum separator tube (gold top) for subsequent determinations. ??Contact the Clinical Chemistry Laboratory if there are any questions. Chloride 107 98 - 107 mmol/L [facility] Carbon Dioxide 26 22 - 31 mmol/L [facility] Anion Gap 11 5 - 15 mmol/L [facility] Calcium 9.8 8.5 - 10.5 mg/dL [facility] Protein, Total 7.6 6.1 - 8.0 g/dL [facility] Albumin 4.1 3.2 - 5.2 g/dL [facility] Aspartate Aminotransferase 16 0 - 39 unit/L [facility] Alanine Aminotransferase 18 0 - 55 unit/L [facility] Alkaline Phosphatase 71 40 - 130 unit/L [facility] Bilirubin, Total 0.5 0.2 - 1.3 mg/dL [facility] Est Glomerular Filtration Rate 74 >=60 mL/min/1. 73 m?? [facility] Comment: This patient's estimated GFR [...] Agency Comment Spec In Lab Marcelle Weinberg BOILERMAKER SHIP CHEMISTRY ORDERAB LES Performing Organization Address City/State/[facility] Co de Phone Number [facility] [place] [address] * COLONOSCOPY (01/20/2024 10:01 AM EST) COLONOSCOPY [facility] Endoscopy Procedure Date: 01/20/2024 10:01 AM ? Patient Name: Naya Rodriguez ? Date of : 1950 ? Age: 73 ? Order #: [id number] ? Instrument Name: [id number] ? Procedure: ? Colonoscopy Indications: ? Follow-up of left-sided chronic ? ulcerative colitis Providers: ? Danyell Schwartz, ? Marcos Friedman Referring MD: ?Davina Cárdenas [...] ? physician, the nurse and the ? engineer technician in the pre-procedure ? area in [...] SIGMOIDOSCOPY (03/16/2012 1:15 PM EDT) FLEXIBLE SIGMOIDOSCOPY [facility] Endoscopy Patient Name: Naya Rodriguez ? Procedure Date: 03/16/2012 1:15 PM ? N: [id number] ? Date of : 1950 ? Age: 61 ? Order #: [id number] ? Procedure: ? Flexible Sigmoidoscopy Indications: ? pt with active UC, assess severity ? prior to entry in MTX study Providers: ? Enrico Tellez MD, April Augustine ? RONY Archibald, Kingsley Oneal, ? Rolling Machine Tender Referring MD: ?Maximilian Fall MD Requesting Provider: [...] Documents on File Type Date Recorded Patient Crabbing Machine Operator Expl anation Advance Directives and Livin g [...] capacity to make decision: Yes Care Teams Traffic Inspector Relationship Specialty Start Date End Date Deacon Watters, BOILERMAKER SHIP [address] [place] [address] PCP - General Family Medicine 02/17/22
--- OUTSIDE RECORDS SUMMARY | 2024-07-15 13:35 | XMS_ITS | Encounter Summary ---
Author Organization [facility] Address [address] [place] [address] Care Team Providers Care Hot Tar Roofer Helper Name Role Phone Sharad Leon MD Primary Care Provider Unavail able Encounter Details Date Type Department Care Team (Latest Contact Info) Description 03/14/2016 7:58 EDT - 03/14/2016 23:59 EDT Hospital Encounter [address] [address] Unknown, Provider, Discharge Disposition: Home or Self Care Social History Tobacco Use Types Packs/Day Years Used Date Smoking Tobacco: Never Assessed Sex and Gender Information Value Date Recorded Sex Assigned at Not on file Gender Identity Not on file Sexual Orientation Not on file documented as of this encounter Discharge Disposition Disposition Code Departure Means Destination Home or Self Long-Term documented in this encounter Plan of Treatment Not on file documented as of this encounter Visit Diagnoses Not on filedocumented in this encounter Care Teams Hot Tar Roofer Helper Relationship Specialty Start Date End Date Sharad Leon MD PCP - General 12/07/09 03/17/16 documented as of this encounter
--- OUTSIDE RECORDS SUMMARY | 2024-07-15 13:35 | XMS_ITS | Encounter Summary ---
Author Organization [facility] Address [address] [place] [address] Care Team Providers Care Professor Of Mechanical Engineering Name Role Phone Maximilian Fall MD Primary Care Provider [phone] Encounter Details Date Type Department Care Team (Late st Contact Info) Description 12/31/2017 Results Only [facility] [phone] Tamara Reza, [address] [place], [place] [id number] Social History Tobacco Use Types Packs/Day Years [...] ? NAYA RODRIGUEZ ? Accession #: ? [id number] ? : ? 1950 (Age: 67) ??M [...] [place] 01/02/2018 9:44 AM End of Report [facility] 12/31/2017 16:3 5 EST 01/01/2018 16:35 EST Tamara Reza DO PATHOLOGY ORDER ASHLIE [facility] [address] [place] [address] documented in this encounter Visit Diagnoses Not on filedocumented in this encounter Care Teams Professor Of Mechanical Engineering Relationship Specialty Start Date End Date Maximilian Fall MD PCP - General 03/18/16 documented as of this encounter
--- OUTSIDE RECORDS SUMMARY | 2024-07-15 13:35 | XMS_ITS | Encounter Summary ---
Author Organization [facility] Address [address] [place] [address] Care Team Providers Care Engraving Press Operator Name Role Phone Unavailable Primary Care Provider Unavailabl e Encounter Details Date Type Department Care Team (Late st Contact Info) Description 12/05/2009 Orders Only [facility] Laboratory Services - [facility] ([facility]) [address] [place], [place] [id number] [place] [address] [place] [phone] Social History Tobacco Use Types Packs/Day [...] ? RODRIGUEZ, BRIAN ? Accession #: ? [id number] ? : ? 1950 (Age: 59) ??M [...] ?? lesions suggestive of a neoplastic focus. ??Weatherization Director sections are submitted in (A1) and (A2). (Davina Ordoñez)/mpl ? End of Report ? JOSEPHINE ESCOTO 12/05/2009 12/06/2009 8:4 7 EST Jennifer Saenz MD PATHOLOGY ORDERABLES [facility] [address] [place] [address] documented in this encounter Visit Diagnoses Not on filedocumented in this encounter
--- OUTSIDE RECORDS SUMMARY | 2024-07-15 13:36 | XMS_ITS | Encounter Summary ---
Author Organization [facility] Address [facility] [place] [address] Care Team Providers Care Customer Agent Name Role Phone Deacon Watters APRN Primary Care Provider [phone] Reason for Visit * Reason Comments Medication Refill Encounter Details Date Type Department Care Team (Late st Contact Info) Description 07/01/2024 [place] [address] Dion Barlow MD [facility] [place] [address] Social History Tobacco Use Types Packs/Day Years Used Date Smoking Tobacco: Former Cigarettes 4 30 1 12/01/1961 - 10/01/1992 Smokeless Tobacco: Former Chew Comments:Denies vaping Alcohol Use Standard Drinks/Week Comments Yes 0 (1 standard drink = 0.6 oz pur e alcohol) twice a year [facility] Utilities Answer Date Recorded In the past 12 months has e [employer], gas, oil, or water [employer] threatened to shut off services in your [...] any time in the past 12 m [facility], were you homeless or living in a half-way (including now)? No 07/01/2024 IPV Inpatient Questions [...] 9:00 AM EDT Office [place] [address] Dion Barlow MD [facility] [place] [address] 09/01/2024 9:40 AM EDT Office Visit Cardiology at [address] [phone] Franky Shaver MD [facility] [place] [address] 09/01/2024 11:20 AM EDT Office Visit [facility] at [facility] [address] [place] [phone] Gómez Mercer MD [facility] DR EDDIE [place] [address] 09/21/2024 2:45 PM EDT Office Visit [place] [phone] Trung Hoyos MD [facility] [place] [address] documented as of this encounter Visit Diagnoses Not on filedocumented in this encounter Care Teams Customer Agent Relationship Specialty Start Date End Date Deacon Watters, JAZMINE [address] [place] [address] PCP - General Family Medicine 02/17/22 documented as of this encounter
--- OUTSIDE RECORDS SUMMARY | 2024-07-15 13:36 | XMS_ITS | Encounter Summary ---
Author Organization [facility] Address [facility] [place] [address] Care Team Providers Care Stringer Up Soldering Machine Name Role Phone DuongDeacon Priscilla LUCERO Primary Care Provider [phone] Encounter Details Date Type Department Care Team [...] 9:00 AM EDT Office [place] [address] Dion Barlow MD [facility] [place] [address] 09/01/2024 9:40 AM EDT Office Visit Cardiology at [address] [phone] Franky Shaver MD [facility] [place] [address] 09/01/2024 11:20 AM EDT Office Visit Dermatology at [facility] [address] [place] [address] Gómez Mercer MD [facility] DR ED[place] [address] 09/21/2024 2:45 PM EDT Office Visit [facility] at [facility] [place] [address] Trung Hoyos MD [facility] [place] [address] documented as of this encounter Visit Diagnoses Not on filedocumented in this encounter Care Teams Stringer Up Soldering Machine Relationship Specialty Start Date End Date Deacon Watters, JAZMINE [address] [place] [address] PCP - General Family Medicine 02/17/22 documented as of this encounter
--- OUTSIDE RECORDS SUMMARY | 2024-07-15 13:36 | XMS_ITS | Encounter Summary ---
Author Organization [facility] [place] [address] Care Team Providers Care Senior Hr Manager Name Role Phone Deacon Watters APRN Primary Care Provider [phone] Encounter Details Date Type Department Care Team (Latest Contact Info) Description 06/07/2024 12:55 PM EDT - 06/07/2024 11:59 PM EDT Hospital [place] [address] Left sided colitis without complications Discharge Disposition: [...] 2 times daily. 540 tablet 3 09/21/2023 losartan (Cozaar) 50 mg Tablet Take 100 mg by mouth daily. 03/10/2020 tamsulosin (FLOMAX) 0.4 mg Capsule, Sust. Release 24 hr Take 0.8 mg by mouth daily. glipiZIDE (GLUCOTROL) 10 mg 24 hr tablet Take 10 mg by mouth daily. ketoconazole (Nizoral) 2 % CreamIndications:Tinea cruris Apply twice daily to affected areas on the groin 30 g 1 06/07/2024 gabapentin (Neurontin) 300 mg Capsule Take 300 mg by mouth daily as needed. 04/21/2021 albuterol 90 mcg/actuation HFA Aerosol Inhaler Inhale 2 puffs into the lungs every 4 hours as needed for Wheezing. Use with spacer BASAGLAR KWIKPEN U-100 INSULIN 100 unit/mL (3 mL) pen Inject 70 Units subcutaneously. 0 04/05/2018 metFORMIN (GLUCOPHAGE) 1,000 mg Tablet Take 500 mg by mouth daily. 0 04/07/2017 folic acid (FOLVITE) 1 mg tabletIndications:Ulce rative colitis Take 1 tablet by mouth daily. 90 tablet 3 11/22/2012 propranolol (INDERAL LA) 80 mg Capsule,Sustained Action 24 hr take 2 capsules by mouth daily for MIGRAINE PROPHYLAXIS 0 04/06/2017 07/04/2024 mupirocin (Bactroban) 2 % OintmentIndications:Vi sit for [...] TIME NEEDED FOR MIGRAINE HEADACHE 01/13/2022 07/04/2024 lisinopril (PRINIVIL;ZESTRIL) 10 mg Tablet take 1 tablet by mouth once daily 0 04/07/2017 06/30/2024 omeprazole (PRILOSEC) 20 mg capsule Take 40 mg by mouth daily. 07/04/2024 documented as of this encounter Plan of Treatment Upcoming Encounters Date Type Department Care Team (Late st Contact Info) Description 08/15/2024 9:00 AM EDT Office [place] [phone] Dion Barlow MD [facility] [place] [address] 09/01/2024 9:40 AM EDT Office Visit Cardiology at [address] [phone] Franky Shaver MD [facility] [place] [address] 09/01/2024 11:20 AM EDT Office Visit Dermatology at [address] [address] Gómez Mercer MD [facility] [place] [address] 09/21/2024 2:45 PM EDT Office Visit [place] [phone] Trung Hoyos MD [facility] [place] [address] documented as of this encounter Procedures Procedure [...] EIA Negative for Shiga Toxin 2 [facility] Stool 06/07/2024 9:00 AM EDT 06/07/2024 1:32 PM EDT Narrative Resulting Agency Comment Spec In Lab Marcelle Weinberg RECOV[employer]ATE MICROBIOLOGY - GE NERAL ORDERABLES Performing Organization Address City/[facility]/ZIP Co de Phone Number [facility] [place] [address] * Campylobacter Antigen (06/07/2024 9:00 AM EDT) Campylobacter Ag Immunoassay Negative for Campylobacter Antigen [facility] Stool 06/07/2024 9:00 AM EDT 06/07/2024 1:32 PM EDT Narrative Resulting Agency Comment Spec In Lab Marcelle Weinberg RECOVERY ADVOCATE MICROBIOLOGY - GE NERAL ORDERABLES Performing Organization Address City/[facility]/ZIP Co de Phone Number [facility] [place] [address] * Stool culture (06/07/2024 9:00 AM EDT) Stool Culture No enteric pathogens isolated [facility] Stool 06/07/2024 9:00 AM EDT 06/07/2024 1:32 PM EDT Narrative Resulting Agency Comment Spec In Lab Marcelle Weinberg RECOV[employer] ADV[employer]ATE MICROBIOLOGY - GE NERAL ORDERABLES Performing Organization Address City/[facility]/ZIP Co de Phone Number [facility] [place] [address] documented in this encounter Visit Diagnoses Diagnosis Left sided colitis without complications Left sided ulcerative (chronic) colitis documented in this encounter Additional Health Concerns Infection Onset Date Last Indicated Resolved Time Rule Out C. difficile 06/07/2024 06/06/20242023 2:27 PM EDT documented as of this encounter Care Teams Senior Hr Manager Relationship Specialty Start Date End Date Deacon Watters APRN [address] [place] [address] PCP - General Family Medicine 02/17/22 documented as of this encounter
--- OUTSIDE RECORDS SUMMARY | 2024-07-15 13:36 | XMS_ITS | Encounter Summary ---
Author Organization [facility] [place] [address] Care Team Providers Care Elementary Assistant Teacher Name Role Phone Deacon Watters APRN Primary Care Provider [phone]- [phone] Encounter Details Date Type Department Care Team (Late st Contact Info) Description 06/06/2024 Telephone [place] [phone] Marcelle Weinberg AUTOMATIC [employer] MA[employer] MACHINE TENDER [facility] [place] [address] Social History Tobacco Use Types Packs/Day Years [...] 9:00 AM EDT Office [place] [phone] Dion Barlow MD [facility] [place] [address] 09/01/2024 9:40 AM EDT Office Visit Cardiology at [address] [phone] Franky hSaver MD [facility] [place] [address] 09/01/2024 11:20 AM EDT Office Visit Dermatology at [address] [phone] Gómez Mercer MD [facility] [address] 09/21/2024 2:45 PM EDT Office Visit [facility] [place] [phone] Trung Hoyos MD [facility] [place] [address] documented as of this encounter Visit Diagnoses Not on filedocumented in this encounter Care Teams Elementary Assistant Teacher Relationship Specialty Start Date End Date Deacon Watters APRN [address] [place] [address] [address] [facility] [address] [place] [address] PCP - General Family Medicine 02/17/22 documented as of this encounter
--- OUTSIDE RECORDS SUMMARY | 2024-07-15 13:36 | XMS_ITS | Encounter Summary ---
Author Organization [facility] [place] [address] Care Team Providers Care Manager Care Name Role Phone Deacon Watters APRN Primary Care Provider [phone] Reason for Visit * Auth/Cert (Routine) Specialty Diagnoses / Procedures Referred By Contac t Referred To Contact Diagnoses NSTEMI (non-ST elevated myocardial infarction) NSTEMI Triston Godinez MD [facility] [place] [address] [facility] Referral ID Status Reason Start Date Expiration Date Visits Re quested Visits Authorized [id number] 1 1 Encounter Details Date Type Department Care Team (Late st Contact Info) Description 07/01/2024 2:30 PM EDT - 07/01/2024 3:30 PM EDT Surgery [place] [address] Lizzette Hayden MD [facility] [place] [address] CARDIAC CATHETERIZATION Social History Tobacco Use Types Packs/Day Years Used Date Smoking Tobacco: Former Cigarettes 4 30 1 12/01/1961 - 10/01/1992 Smokeless Tobacco: Former Chew Comments:Denies vaping Alcohol Use Standard Drinks/Week Comments Yes 0 (1 standard drink = 0.6 oz pur e alcohol) twice a year [facility] Utilities Answer Date Recorded In the past 12 months has th e electric, gas, oil, or water [employer] threatened to shut off services in your [...] any time in the past 12 m [facility], were you homeless or living in a group home (including now)? No 07/01/2024 DH IPV [...] HLD, migraines, DM2, and UC who [facility] for [facility] pain and was transferred to [facility] for NSTEMI found to [...] He was discharged with 6 days of [id number] mg BID after receiving 1 day of [...] Jardiance allergy. PCP Contact Information: Deacon Watters, TURNTABLE OPERATOR [address] [facility] 1 / [facility] [id number] Discharge Diagnoses (Hospital Problems) and Secondary Diagnoses [...] #HTN #HLD Mr. Rodriguez was transferred to [facility] for NSTEMI with trops of 4143 and 20,000 at the [facility], where he was loaded with ASA, plavix and started on heparin gtt. At [facility], his trops trended down [...] dose. Would consider changes to his regimen detention to reduce the A1c. #GERD He takes [...] to exclude urinary tract infection. Cardiac Catheterization: ([facility]) RIGHT dominance LVEDP 10 Artery Lesion Intervention [...] 9:00 AM Dion Osullivan MD Gastroenterology at [facility] Arrive at: Criminal Legal Assistant Area [phone] 09/01/2024 11:20 AM Gómez Mercer MD Dermatology at [facility] Arrive at: Criminal Legal Assistant [address] [place] [address] 09/21/2024 2:45 PM Trung Hoyos MD Pain and Spine Center at [facility] Arrive at: Criminal Legal Assistant Area [phone] Future Orders Complete By Expires Referral to Cardiac Rehab [[id number] Custom] As directed Process Instructions: If no progress note charted, please enter Clinical details in comments. Scheduling Instructions: Questions: My question or request is: NSTEMI, PCI, HFrEF- cardiac rehab at [facility] Referral to Cardiology [REF12 Custom] As directed Process Instructions: If no progress note charted, please enter Clinical details in comments. Scheduling Instructions: Questions: My question or request is: NEW PATIENT - hospital follow up for NSTEMI s/p PCI to LCx and new HFrEF, does not have appt on [employer] please call him with appt slot General [...] appointments: During 8am-5pm Thursday through Thursday call [phone] to speak with a nurse in the cardiology clinic All other times call [phone] and ask to speak to the retail key holder life consultant. Home oxygen therapy: none Arrangements for VNA/home care: none Follow up Appointments: Future Appointments Date Time Provider Department Center 08/15/2024 9:00 AM Dion Osullivan MD [facility] GASTRO [facility] 09/01/2024 11:20 AM Gómez Mercer MD [facility] 09/21/2024 2:45 PM Trung Hoyos MD [facility] Pain Sp [facility] Warp Changer: [facility] - referral sent and they are aware you need an appointment. If they do not reach out to you with an appointment in 1 week, call and ask for the cardiology clinic. PCP: Deacon Watters APRN at [phone] on July 08 at 4 PM Your Inpatient Doctor(s) at [facility]: Armond Denny MD - Attending physician Your Primary Care Provider: Deacon Watters APRN [address] [address] / [facility] [address] If you have non-emergent questions between now and the time of your follow up appointments: During 8am-5pm Thursday through Thursday call [phone] to speak with a nurse in the cardiology clinic All other times call [phone] and ask to speak to the retail key holder life consultant. Provider Contact Information: Deacon Watters APRN [address] [facility] 1 / [facility] [id number] Discharge References/Attachments: Discharge References/Attachments None For questions regarding this document or issues relating to this hospitalization on the Medical Service, please contact your inpatient physician through the [facility] Vice President Of Instruction . Issues afterhours and on weekends will be handled by the Warp Changer staff on-call. Signed: Ronel Hensley MD Internal [...] appointments: During 8am-5pm Thursday through Thursday call [phone] to speak with a nurse in the cardiology clinic All other times call [phone] and ask to speak to the retail key holder life consultant. Home oxygen therapy: none Arrangements for VNA/home care: none Follow up Appointments: Future Appointments Date Time Provider Department Center 08/15/2024 9:00 AM Dion Osullivan MD [facility] GASTRO [facility] 09/01/2024 11:20 AM Gómez Mercer MD [facility] 09/21/2024 2:45 PM Trung Hoyos MD [facility] Pain Sp [facility] Warp Changer: [facility] - referral sent and they are aware you need an appointment. If they do not reach out to you with an appointment in 1 week, call and ask for the cardiology clinic. PCP: Deacon Watters APRN at [phone] on July 08 at 4 PM Your Inpatient Doctor(s) at [facility]: Armond Denny MD - Attending physician Your Primary Care Provider: Deacon Watters APRN [address] [place] [phone] If you have non-emergent questions between now and the time of your follow up appointments: During 8am-5pm Thursday through Thursday call [phone] to speak with a nurse in the cardiology clinic All other times call [phone] and ask to speak to the retail key holder life consultant. documented in this encounter Medications at Time [...] tablet Take 10 mg by mouth daily. dicyclomine (Bentyl) 20 [...] 0 04/07/2017 folic acid (FOLVITE) 1 mg tabletIndications:U lcerative [...] migraines, DM2, and UC whowas transferred to [facility] for NSTEMI and now [...] 3.66) performed by Dion Osullivan MD at [facility] ENDOSCOPY PRO COLONOSCOPY, BIOPSY N/A 02/22/2019 COLONOSCOPY FLEXIBLE, WITH BX (WRVU 3.66) performed by Dion Osullivan MD at [facility] ENDOSCOPY PRO COLONOSCOPY, BIOPSY N/A 03/28/2022 COLONOSCOPY FLEXIBLE, WITH BX (WRVU 3.66) performed by Mona Turner MD at [facility] ENDOSCOPY PRO COLONOSCOPY, BIOPSY N/A 01/20/2024 COLONOSCOPY FLEXIBLE, WITH BX (WRVU 3.56) performed by Anthony Hamlin MD at [facility] ENDOSCOPY PRO COLONOSCOPY, DIAGNOSTIC 11/27/2011 COLONOSCOPY, DIAGNOSTIC performed by Dion OSULLIVAN at [facility] ENDOSCOPY PRO COLONOSCOPY, DIAGNOSTIC 07/13/2014 COLONOSCOPY, DIAGNOSTIC performed by Dion Osullivan MD at [facility] PRO COLONOSCOPY, REMV LESN, SNARE N/A 02/22/2019 COLONOSCOPY, POLYPECTOMY, REMOVAL LESION BY SNARE (WRVU 4.67) performed by Dion Osullivan MD at [facility] PRO COLONOSCOPY, REMV LESN, SNARE N/A 02/26/2021 COLONOSCOPY, POLYPECTOMY, REMOVAL LESION BY SNARE (WRVU 4.67) performed by Dion Osullivan MD at [facility]COPY PRO SIGMOIDOSCOPY, DIAGNOSTIC 03/16/2012 FLEXIBLE SIGMOIDOSCOPY performed by YUDI MALLOY at [facility] ENDOSCOPY PRO UPPER GI ENDOSCOPY, DIAGNOSTIC N/A 04/28/2019 EGD, UPPER GI ENDOSCOPY performed by Iza Coates MD at [facility] ENDOSCOPY UPPER GI ENDOSCOPY, EXAM 10/01/2012 UPPER GI ENDOSCOPY performed by Dion OSULLIVAN at [facility] Social History: Home set-up: Lives on the first floor of a two level home in [place], [place] Stairs: FOS with bilateral rails vs a few stairs through the back to the first level, 8 step between rooms Bathroom Set-up: Tub-shower with grab bars, no shower chair Baseline Mobility: Ambulates without an assistive device. Independent with I/ADLs, including driving. 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 He enjoys taking care of his property including [employer]. He sleeps in a flat bed. 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 [...] Moderate Complexity Evaluation Qing Braxton, PT Pager: [phone] Physical Therapy Inpatient Rehabilitation Department * Day, Tray Bassett OT - 07/04/2024 9:40 AM EDT Occupational Therapy Evaluation Patient profile: Brian Rodriguez is a 74 y.o. male admitted on 06/30/2024 with PMHx of HTN, HLD, migraines, DM2, and UC who was transferred to [facility] for NSTEMI and now found to have HFrEF. Pt now s/p PCIto LCX. Past Medical History: Diagnosis Date Asthma 10/01/2011 Diabetes mellitus 10/01/2011 GERD (gastroesophageal reflux disease) 10/01/2011 Hearing loss 10/01/2011 Hydrocele 10/01/2011 Ulcerative colitis 10/01/2011 Past Surgical History: Procedure Laterality Date PRO COLONOSCOPY, BIOPSY N/A 02/12/2017 COLONOSCOPY FLEXIBLE, WITH BX (WRVU 3.66) performed by Dion Osullivan MD at [facility] PRO COLONOSCOPY, BIOPSY N/A 02/22/2019 COLONOSCOPY FLEXIBLE, WITH BX (WRVU 3.66) performed by Dion Osullivan MD at [facility] PRO COLONOSCOPY, BIOPSY N/A 03/28/2022 COLONOSCOPY FLEXIBLE, WITH BX (WRVU 3.66) performed by Mona Turner MD at [facility] PRO COLONOSCOPY, BIOPSY N/A 01/20/2024 COLONOSCOPY FLEXIBLE, WITH BX (WRVU 3.56) performed by Anthony Hamlin MD at [facility] PRO COLONOSCOPY, DIAGNOSTIC 11/27/2011 COLONOSCOPY, DIAGNOSTIC performed by Dion OSULLIVAN at [facility] PRO COLONOSCOPY, DIAGNOSTIC 07/13/2014 COLONOSCOPY, DIAGNOSTIC performed by Dion Osullivan MD at [facility] PRO COLONOSCOPY, REMV LESN, SNARE N/A 02/22/2019 COLONOSCOPY, POLYPECTOMY, REMOVAL LESION BY SNARE (WRVU 4.67) performed by Dion Osullivan MD at [facility] PRO COLONOSCOPY, REMV LESN, SNARE N/A 02/26/2021 COLONOSCOPY, POLYPECTOMY, REMOVAL LESION BY SNARE (WRVU 4.67) performed by Dion Osullivan MD at [facility] PRO SIGMOIDOSCOPY, DIAGNOSTIC 03/16/2012 FLEXIBLE SIGMOIDOSCOPY performed by YUDI MALLOY at [facility] PRO UPPER GI ENDOSCOPY, DIAGNOSTIC N/A 04/28/2019 EGD, UPPER GI ENDOSCOPY performed by Iza Coates MD at [facility] UPPER GI ENDOSCOPY, EXAM 10/01/2012 UPPER GI ENDOSCOPY performed by Dion OSULLIVAN at [facility] Social History: Home set-up: Lives on the first floor of a two level home in [place], [place] Stairs: FOS with bilateral rails vs a few stairs through the back to the first level, 8 step between rooms Bathroom Set-up: Tub-shower with grab bars, no shower chair Baseline Mobility: Ambulates without an assistive device. Independent with I/ADLs, including driving. 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 He enjoys taking care of his property including [place]. He sleeps in a flat bed. 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 [...] evaluation only Total Minutes, Occupational Therapy: 39 (4240-1239AM; Eval; 1 unit) 2017 OT Evaluation Code [...] and measurable assessment of functional outcome. Pager: [phone] Tray Logan OTR/L Occupational Therapy Rehabilitation Department * Armond Denny MD - 07/03/2024 7:03 AM EDT Inpatient Cardiology Progress Note Patient Name: Brian Rodriguez Date of Admission: 06/30/2024 ( Hospital Day 3 days ) Service: S2 ID: Brian Rodriguez is a 74 y.o. male with PMHx of HTN, HLD, migraines, DM2, and UC who presented [facility] for chest pain and was transferred to [facility] for NSTEMI found to [...] 1809 PROBNP 2,259* Trops: OSH 4143 >20,000>> [facility] 1234 and 1274 06/30 [...] to exclude urinary tract infection. Cardiac Catheterization: ([facility]) RIGHT dominance LVEDP 10 Artery Lesion Intervention [...] DM2, and UC who was transferred to [facility] for NSTEMI and now [...] 7.3. Will need outpatient follow up for detention changes. - holding home glipizide and metformin [...] Katia Reid MD Internal Medicine PGY-3 Pager [phone], M1-S2 Service CARDIOLOGY STAFF NOTE I have personally interviewed and examined the patient and reviewed appropriate data, including labs, ECGs and other diagnostic studies. I agree with the principal findings documented above. The assessment and plan were formulated in discussion with me. Armond Denny MD, [facility], [facility] Staff Warp Changer vending machine mechanic * Armond Denny MD - 07/02/2024 6:17 AM EDT Inpatient Cardiology Progress Note Patient Name: Brian M Rodriguez Date of Admission: 06/30/2024 ( Hospital Day 2 days ) Service: S2 ID: Brian Rodriguez is a 74 y.o. male with PMHx of HTN, HLD, migraines, DM2, and UC [facility] to [facility] for NSTEMI found to [...] 1809 PROBNP 2,259* Trops: OSH 4143 >20,000>> [facility] 1234 and 1274 06/30 [...] to exclude urinary tract infection. Cardiac Catheterization: ([facility]) RIGHT dominance LVEDP 10 Artery Lesion Intervention [...] DM2, and UC who was transferred to [facility] for NSTEMI and now [...] 7.3. 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 - holding home glipizide and metformin [...] Ronel Hensley MD Internal Medicine PGY-1 Pager [phone], M1-S2 Service CARDIOLOGY STAFF NOTE I have personally interviewed and examined the patient and reviewed appropriate data, including labs, ECGs and other diagnostic studies. I agree with the principal findings documented above. The assessment and plan were formulated in discussion with me. Armond Denny MD, [facility], [facility] Staff Warp Changer vending machine mechanic * Armond Denny MD - 07/01/2024 6:15 AM EDT Inpatient Cardiology Progress Note Patient Name: Brian Rodriguez Date of Admission: 06/30/2024 ( Hospital Day 1 day ) Service: S2 ID: Brian Rodriguez is a 74 y.o. male with PMHx of HTN, HLD, migraines, DM2, and UC who presented [facility] for chest pain and was transferred to [facility] for NSTEMI found to have HFrEF. Active Problems: Active Hospital Problems Diagnosis NSTEMI (non-ST elevated myocardial infarction) Resolved Hospital Problems No resolved problems to display. 24 hr events: Yesterday - transferred to [facility] for NSTEMI Overnight - [...] 1809 PROBNP 2,259* Trops: OSH 4143 >20,000>> [facility] 1234 and 1274 last [...] DM2, and UC who was transferred to [facility] for NSTEMI and now [...] 7.3. 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 - holding home glipizide and metformin [...] Ronel Hensley MD Internal Medicine PGY-1 Pager [phone], M1-S2 Service CARDIOLOGY STAFF NOTE I have personally interviewed and examined the patient and reviewed appropriate data, including labs, ECGs and other diagnostic studies. I agree with the principal findings documented above. The assessment and plan were formulated in discussion with me. Plan for cath today and introduction of full complement of medical therapies for ACS/HFrEF. Armond Denny MD, [facility], [facility] Staff Warp Changer vending machine mechanic documented in this encounter H&P Notes * Joshua Díazdot Woodard, TURNTABLE OPERATOR - 07/01/2024 9:33 AM EDT Images from [...] PCP: Deacon Watters APRN PCP phone #: [phone] ID/Chief Complaint: Brian Rodriguez is a 74 y.o. male with PMHx of HTN, HLD, migraines, DM2, and UC who presented to [facility] for chest pain and was transferred to [facility] for NSTEMI. History of [...] infarction) Ulcerative colitis Colonoscopy 04/08/10 ([facility] [...] ascending colon. Several HPs and one TA. [place] 03/2022 - [place] 1 limited to rectosigmoid, [...] in the last 7068 hours. Invalid input(s): [id number] Heme: No results for input(s): LDH, HAPTOGLOBIN, [...] DM2, and UC who was transferred to [facility] for NSTEMI. Given Brian's [...] Admit to Cardiology, S2 Team Pager # [phone] #NSTEMI > trops elevated to 4143 and 20,000 at OSH - s/p ASA and Plavix load - heparin gtt - continue 81 mg ASA - continue 75 mg plavix - repeat EKG with posterior leads - restarted atorvastatin 80 mg - TTE pending - trending trops here - NPO at midnight for [facility] tomorrow #Migraines - holding propranolol for now, [...] in an outpatient cardiac rehabilitation program at [facility] was discussed. Patient agrees to a referral [...] Operative Note Patient Name: Brian Rodriguez : [id number] MR#: [id number] Case Date: 07/01/2024 Surgeon: Surgeons and Role: [...] 07/01/2024 12:11 PM EDT Brian completed a [place] Advanced directive and stated that if he [...] surrogate would be surrogate decision maker per [place] surrogate decision making law. (Only good for 180 days) Any patient receiving care in [place] must abide by [place] law. The hierarchy for surrogate decision making [...] (i) The agent with financial power of ip attorney or a conservator appointed in accordance [...] or living in a group home (including now)?: No In the past 12 months has the [employer], gas, oil, or water [employer] threatened to shut off services in your [...] Current DME: none Home Address confirmed as: [address] [place] [address] Social & Family Supports: All names listed below confirmed with patient as current and correct Extended Emergency Contact Information Primary Emergency Contact: Sabrina Eisenberg Address: [address] [place] [phone] [facility] Mobile Relation: Child Secondary Emergency Contact: Enrique [...] Yes ; Prescription Coverage: Yes Preferred Pharmacy: [facility] [address] [address] [place] Status: Patient is a : No Primary Care Provider confirmed: Deacon Watters, TURNTABLE OPERATOR [phone] Potential Needs for Transition of Care: none [...] 9:00 AM EDT Office [place] [address] Doin Osullivan MD [facility] [place] [address] 09/01/2024 9:40 AM EDT Office Visit Cardiology at [address] [phone] Franky Shaver MD [facility] [place] [address] 09/01/2024 11:20 AM EDT Office Visit Dermatology at [address] [address] Gómez Mercer MD [facility] DR EDDIE SANCHEZ-[place] [address] 09/21/2024 2:45 PM EDT Office Visit [place] [phone] Trung Hoyos MD [facility] PAIN [place] [address] Scheduled Referrals Name Type Priority Associated Diagnoses [...] PM EDT URINALYSIS BEAKER MICROSCPIC REFLEX EXAM ([facility]) Routine 07/03/2024 3:02 PM EDT URINALYSIS MICROSCOPIC [...] - 199 mg/dL 07/04/2024 2:12 PM EDT [facility] Comment:Supplemental ranges: <140 mg/dL before meals <180 mg/dL all other times of the day. Blood CAPILLARY BLOOD / Unknown 07/04/2024 1:49 PM EDT 07/04/2024 2:12 PM EDT Armond Denny MD POINT OF CARE TEST O CEE Performing Organization Address [facility] Co de Phone Number [facility] [place] [address] * (ABNORMAL) POC, GLUCOSE (07/04/2024 11:55 AM EDT) Glucometer, POC 287(H) 65 - 199 mg/dL 07/04/2024 11:55 AM EDT [facility] Comment:Supplemental ranges: <140 mg/dL before meals <180 mg/dL all other times of the day. Blood CAPILLARY BLOOD / Unknown 07/04/2024 11:55 AM EDT 07/04/2024 11:55 AM EDT Armond Denny MD POINT OF CARE TEST O RDMELISSA [facility] [place] [address] * (ABNORMAL) POC, GLUCOSE (07/04/2024 11:18 AM EDT) Glucometer, POC 259(H) 65 - 199 mg/dL 07/04/2024 11:32 AM EDT [facility] Comment:Supplemental ranges: <140 mg/dL before meals <180 mg/dL all other times of the day. Blood CAPILLARY BLOOD / Unknown 07/04/2024 11:18 AM EDT 07/04/2024 11:32 AM EDT Armond Denny MD POINT OF CARE TEST O DANIELERAOMAR Performing Organization Address City/[facility] Co de Phone Number [facility] [place] [address] * POC, GLUCOSE (07/04/2024 8:04 AM EDT) Glucometer, POC 111 65 - 199 mg/dL 07/04/2024 8:04 AM EDT [facility] Comment:Supplemental ranges: <140 mg/dL before meals <180 mg/dL all other times of the day. Blood CAPILLARY BLOOD / Unknown 07/04/2024 8:04 AM EDT 07/04/2024 8:04 AM EDT Armond Denny MD POINT OF CARE TEST O CEE Performing Organization Address City/[facility]/ZIP Co de Phone Number [facility] [place] [address] * Magnesium (07/04/2024 1:43 AM EDT) Magnesium 0.80 0.69 - 1.07 mMol/L 07/04/2024 2:23 AM EDT [facility] Blood VENOUS BLOOD SPECIMEN / Unknown IP Care Team Draw / Unknown 07/04/2024 1:43 AM EDT 07/04/2024 1:52 AM EDT Triston Godinez MD CHEMISTRY ORDERABLES [facility] [place] [address] * (ABNORMAL) Basic Metabolic Panel (07/04/2024 1:43 AM EDT) Glucose 156 65 - 199 mg/dL 07/04/2024 2:23 AM EDT [facility] Comment:Glucose Concentratio n >=200 mg/dL plus symptoms is consistent with Diabetes Mellitus. Blood Urea Nitrogen 12 10 - 20 mg/dL 07/04/2024 2:23 AM [facility] Creatinine 1.27 0.80 - 1.50 mg/dL 07/04/2024 2:23 AM [facility] Sodium 141 135 - 145 mMol/L 07/04/2024 2:23 AM [facility] Potassium 3.9 3.5 - 5.0 mMol/L 07/04/2024 2:23 AM [facility] Chloride 108(H) 98 - 107 mMol/L 07/04/2024 2:23 AM [facility] Carbon Dioxide 22 22 - 31 mMol/L 07/04/2024 2:23 AM [facility] Anion Gap 11 5 - 15 mMol/L 07/04/2024 2:23 AM [facility] Calcium 9.4 8.5 - 10.5 mg/dL 07/04/2024 2:23 [facility] Est Glomerular Filtration Rate - Male 59 mL/min/1. 73 m?? 07/04/2024 2:23 AM [facility] Comment: This patient's estimated GFR [...] AM EDT Triston Godinez MD CHEMISTRY ORDERABLES [facility] [place] [address] * (ABNORMAL) CBC (with Diff) (07/04/2024 1:43 AM EDT) White Blood Cell 5.05 4.00 - 9.50 x10(3)/mc L 07/04/2024 2:00 [facility] Red Blood Cell 3.11(L) 4.58 - 5.54 x10(6)/mc L 07/04/2024 2:00 [facility] Hemoglobin 10.5(L) 13.7 - 16.5 g/dL 07/04/2024 2:00 AM [facility] Hematocrit 31.5(L) 40.5 - 48.5 % 07/04/2024 2:00 AM [facility] Mean Cell Volume 101.3(H) 82.9 - 93.1 fL 07/04/2024 2:00 AM [facility] Mean Cell Hemoglobin 33.8(H) 27.5 - 32.1 pg 07/04/2024 2:00 AM [facility] Mean Cell Hemoglobin Concentration 33.3 32.0 - 35.7 g/dL 07/04/2024 2:00 AM [facility] Platelet 145 145 - 357 x10(3)/mc L 07/04/2024 2:00 AM [facility] Mean Platelet Volume 11.5 7.6 - 12.9 fL 07/04/2024 2:00 AM [facility] RDW Standard Deviation 48.2(H) 36.0 - 45.0 fL 07/04/2024 2:00 AM [facility] RDW coefficient of variation 13.1 11.4 - 13.8 % 07/04/2024 2:00 AM [facility] NRBC% auto 0.0 % 07/04/2024 2:00 AM [facility] NRBC Absolute 0.00 0.00 - 0.00 x10(3)/mc L 07/04/2024 2:00 AM [facility] Neutrophil % 65.9 % 07/04/2024 2:00 AM [facility] Neutrophil Absolute 3.33 1.70 - 6.10 x10(3)/mc L 07/04/2024 2:00 AM [facility] Lymph % 20.8 % 07/04/2024 2:00 AM [facility] Lymph Absolute 1.05 0.90 - 3.20 x10(3)/mc L 07/04/2024 2:00 AM [facility] Monocyte % 9.3 % 07/04/2024 2:00 AM [facility] Monocyte Absolute 0.47 0.30 - 0.90 x10(3)/mc L 07/04/2024 2:00 AM [facility] Eos % 3.0 % 07/04/2024 2:00 AM [facility] Eos Absolute 0.15 0.00 - 0.40 x10(3)/mc L 07/04/2024 2:00 AM [facility] Basophil % 0.6 % 07/04/2024 2:00 AM [facility] Baso Absolute 0.03 0.00 - 0.10 x10(3)/mc L 07/04/2024 2:00 AM [facility] Immature Gran % 0.4 % 2:00 AM EDT [facility] Immature Gran Absolute 0.02 0.00 - 0.04 x10(3)/mc L 07/04/2024 2:00 AM EDT [facility] Blood VENOUS BLOOD SPECIMEN / Unknown IP Care Team Draw / Unknown 07/04/2024 1:43 AM EDT 07/04/2024 1:52 AM EDT Triston Godinez MD HEMATOLOGY ORDERABLE S Performing Organization Address [facility]/ZIP Co de Phone Number [facility] [place] [address] * (ABNORMAL) POC, GLUCOSE (07/03/2024 8:02 PM EDT) Glucometer, POC 251(H) 65 - 199 mg/dL 07/03/2024 8:02 PM EDT [facility] Comment:Supplemental ranges: <140 mg/dL before meals <180 mg/dL all other times of the day. Blood CAPILLARY BLOOD / Unknown 07/03/2024 8:02 PM EDT 07/03/2024 8:02 PM EDT Armond Denny MD POINT OF CARE TEST O CEE Performing Organization Address [facility] Co de Phone Number [facility] [place] [address] * (ABNORMAL) POC, GLUCOSE (07/03/2024 4:47 PM EDT) Glucometer, POC 217(H) 65 - 199 mg/dL 07/03/2024 4:47 PM EDT [facility] Comment:Supplemental ranges: <140 mg/dL before meals <180 mg/dL all other times of the day. Blood CAPILLARY BLOOD / Unknown 07/03/2024 4:47 PM EDT 07/03/2024 4:47 PM EDT Armond Denny MD POINT OF CARE TEST O RDERABLES Performing Organization Address [facility]/ZIP Co de Phone Number [facility] [place] [address] * (ABNORMAL) Urine culture (07/03/2024 3:02 PM EDT) Urine Culture 50,000-99,000 cfu/ml Escherichia coli(A) VITEK 2 METHOD 07/05/2024 8:01 AM EDT [facility] Urine Culture 10,000-49,000 cfu/ml mixed mucosal harika VITEK 2 METHOD 07/05/2024 8:01 AM EDT [facility] Urine URINE SPECIMEN OBTAINED BY CLEAN [...] - GENER AL ORDERABLES Performing Organization Address City/[facility]/ZIP Co de Phone Number [facility] [place] [address] * (ABNORMAL) Urinalysis Microscopic Reflex to Culture (07/03/2024 3:02 PM EDT) RBC, Urine 2 0 - 3 /HPF 07/03/2024 3:40 PM EDT [facility] WBC, Urine 55(H) 0 - 3 /HPF 07/03/2024 3:40 PM EDT [facility] Squamous Epithelial Cells, Urine 1 0 - 5 /HPF 07/03/2024 3:40 PM EDT [facility] Hyaline Casts, Urine 3(H) 0 - 2 /LPF 07/03/2024 3:40 PM EDT [facility] Comment 07/03/2024 3:40 PM EDT [facility] Comment:Interpret results wi th caution, microscopic results are from a suboptimal specimen. Bacteria, Urine Many(A) None /HPF 3:40 PM EDT [facility] Urine URINE SPECIMEN OBTAINED BY CLEAN CATCH PROCEDURE / Unknown Non Blood Collection / Unknown 07/03/2024 3:02 PM EDT 07/03/2024 3:13 PM EDT Armond Denny MD URINE ORDERABLES Performing Organization Address [facility] de Phone Number [facility] [place] [address] * Urinalysis Microscopic with Reflex to Culture (07/03/2024 3:02 PM EDT) Urine URINE SPECIMEN OBTAINED BY CLEAN CATCH PROCEDURE / Unknown Non Blood Collection / Unknown 07/03/2024 3:02 PM EDT 07/03/2024 3:13 PM EDT Armond Denny MD URINE ORDERABLES Performing Organization Address [facility] Co de Phone Number [facility] [place] [address] * (ABNORMAL) Urinalysis with reflex Culture (07/03/2024 3:02 PM EDT) Glucose, Urine Dipstick Negative Negative 07/03/2024 3:40 PM EDT [facility] Protein, Urine Dipstick 30 mg/dL(A) Negative 07/03/2024 3:40 PM EDT [facility] Bilirubin, Urine Dipstick Small(A) Negative 07/03/2024 3:40 PM EDT [facility] Comment:Clinical correlation required for positive Urine Bilirubin results as false positive may occur with some drugs and drug related products. If a false positive is suspected a serum total bilirubin should be considered if clinically indicated. Urobilinogen, Urine Dipstick Normal Normal, 0.2 mg/dL, 1.0 mg/dL 07/03/2024 3:40 PM EDT [facility] pH, Urine (dipstick) 5.5 5.0 - 8.0 07/03/2024 3:40 PM EDT [facility] Blood, Urine Dipstick Negative Negative 07/03/2024 3:40 PM EDT [facility] Ketone, Urine Dipstick Trace(A) Negative 07/03/2024 3:40 PM EDT [facility] Nitrite, Urine Dipstick Positive(A) Negative 07/03/2024 3:40 PM EDT [facility] Leukocytes, Urine Dipstick Moderate(A) Negative 07/03/2024 3:40 PM EDT [facility] Specific [place] Urine Automated 1.024 1.005 - 1.030 07/03/2024 3:40 PM [facility] Appearance, Urine Dipstick Cloudy(A) Clear 07/03/2024 3:40 PM EDT [facility] Color, Urine Dipstick Dark Yellow Yellow, Dark Yellow 07/03/2024 3:40 PM EDT [facility] Urine URINE SPECIMEN OBTAINED BY CLEAN CATCH PROCEDURE / Unknown Non Blood Collection / Unknown 07/03/2024 3:02 PM EDT 07/03/2024 3:13 PM EDT Armond Denny MD URINE ORDERABLES [facility] [place] [address] * POC, GLUCOSE (07/03/2024 11:21 AM EDT) Glucometer, POC 177 65 - 199 mg/dL 07/03/2024 11:21 AM EDT [facility] Comment:Supplemental ranges: <140 mg/dL before meals <180 mg/dL all other times of the day. Blood CAPILLARY BLOOD / Unknown 07/03/2024 11:21 AM EDT 07/03/2024 11:21 AM EDT Armond Denny MD POINT OF CARE TEST O CEE Performing Organization Address City/[facility]/ZIP Co de Phone Number [facility] [place] [address] * POC, GLUCOSE (07/03/2024 7:24 AM EDT) Glucometer, POC 124 65 - 199 mg/dL 07/03/2024 7:24 AM EDT [facility] Comment:Supplemental ranges: <140 mg/dL before meals <180 mg/dL all other times of the day. Blood CAPILLARY BLOOD / Unknown 07/03/2024 7:24 AM EDT 07/03/2024 7:24 AM EDT Armond Denny MD POINT OF CARE TEST O CEE [facility] [place] [address] * Magnesium (07/03/2024 4:02 AM EDT) Magnesium 0.86 0.69 - 1.07 mMol/L 07/03/2024 4:41 AM EDT [facility] Blood VENOUS BLOOD SPECIMEN / Unknown IP Care Team Draw / Unknown 07/03/2024 4:02 AM EDT 07/03/2024 4:07 AM EDT Triston Godinez MD CHEMISTRY ORDERABLES [facility] [place] [address] * Basic Metabolic Panel (07/03/2024 4:02 AM EDT) Glucose 146 65 - 199 mg/dL 07/03/2024 4:41 AM [facility] Comment:Glucose Concentratio n >=200 mg/dL plus symptoms is consistent with Diabetes Mellitus. Blood Urea Nitrogen 15 10 - 20 mg/dL 07/03/2024 4:41 AM EDT [facility] Creatinine 1.25 0.80 - 1.50 mg/dL 07/03/2024 4:41 AM [facility] Sodium 138 135 - 145 mMol/L 07/03/2024 4:41 AM [facility] Potassium 3.6 3.5 - 5.0 mMol/L 07/03/2024 4:41 AM [facility] Chloride 105 98 - 107 mMol/L 07/03/2024 4:41 AM [facility] Carbon Dioxide 22 22 - 31 mMol/L 07/03/2024 4:41 AM [facility] Anion Gap 11 5 - 15 mMol/L 07/03/2024 4:41 AM [facility] Calcium 9.2 8.5 - 10.5 mg/dL 07/03/2024 4:41 AM [facility] Est Glomerular Filtration Rate - Male 60 mL/min/1. 73 m?? 07/03/2024 4:41 AM [facility] Comment: This patient's estimated GFR [...] AM EDT Triston Godinez MD CHEMISTRY ORDERABLES [facility] [place] [address] * (ABNORMAL) CBC (with Diff) (07/03/2024 4:02 AM EDT) White Blood Cell 5.90 4.00 - 9.50 x10(3)/mc L 07/03/2024 4:13 AM EDT [facility] Red Blood Cell 3.27(L) 4.58 - 5.54 x10(6)/mc L 07/03/2024 4:13 AM EDT [facility] Hemoglobin 11.0(L) 13.7 - 16.5 g/dL 07/03/2024 4:13 AM [facility] Hematocrit 33.1(L) 40.5 - 48.5 % 07/03/2024 4:13 AM EDT [facility] Mean Cell Volume 101.2(H) 82.9 - 93.1 fL 07/03/2024 4:13 AM EDT [facility] Mean Cell Hemoglobin 33.6(H) 27.5 - 32.1 pg 07/03/2024 4:13 AM [facility] Mean Cell Hemoglobin Concentration 33.2 32.0 - 35.7 g/dL 07/03/2024 4:13 AM EDT [facility] Platelet 156 145 - 357 x10(3)/mc L 07/03/2024 4:13 [facility] Mean Platelet Volume 11.3 7.6 - 12.9 fL 07/03/2024 4:13 AM EDT [facility] RDW Standard Deviation 47.5(H) 36.0 - 45.0 fL 07/03/2024 4:13 AM [facility] RDW coefficient of variation 12.7 11.4 - 13.8 % 07/03/2024 4:13 AM [facility] NRBC% auto 0.0 % 07/03/2024 4:13 AM [facility] NRBC Absolute 0.00 0.00 - 0.00 x10(3)/mc L 07/03/2024 4:13 AM [facility] Neutrophil % 70.0 % 07/03/2024 4:13 AM [facility] Neutrophil Absolute 4.13 1.70 - 6.10 x10(3)/mc L 07/03/2024 4:13 AM [facility] Lymph % 18.3 % 07/03/2024 4:13 AM [facility] Lymph Absolute 1.08 0.90 - 3.20 x10(3)/mc L 07/03/2024 4:13 AM [facility] Monocyte % 8.5 % 07/03/2024 4:13 AM [facility] Monocyte Absolute 0.50 0.30 - 0.90 x10(3)/mc L 07/03/2024 4:13 AM [facility] Eos % 2.4 % 07/03/2024 4:13 AM [facility] Eos Absolute 0.14 0.00 - 0.40 x10(3)/mc L 07/03/2024 4:13 AM [facility] Basophil % 0.5 % 07/03/2024 4:13 AM [facility] Baso Absolute 0.03 0.00 - 0.10 x10(3)/mc L 07/03/2024 4:13 AM [facility] Immature Gran % 0.3 % 4:13 AM [facility] Immature Gran Absolute 0.02 0.00 - 0.04 x10(3)/mc L 07/03/2024 4:13 AM EDT [facility] Blood VENOUS BLOOD SPECIMEN / Unknown IP Care Team Draw / Unknown 07/03/2024 4:02 AM EDT 07/03/2024 4:07 AM EDT Triston Godinez MD HEMATOLOGY ORDERABLE S Performing Organization Address [facility] Co de Phone Number [facility] [place] [address] * (ABNORMAL) POC, GLUCOSE (07/02/2024 8:45 PM EDT) Glucometer, POC 271(H) 65 - 199 mg/dL 07/02/2024 8:46 PM EDT [facility] Comment:Supplemental ranges: <140 mg/dL before meals <180 mg/dL all other times of the day. Blood CAPILLARY BLOOD / Unknown 07/02/2024 8:45 PM EDT 07/02/2024 8:46 PM EDT Armond Denny MD POINT OF CARE TEST O CEE Performing Organization Address [facility] de Phone Number [facility] [place] [address] * (ABNORMAL) POC, GLUCOSE (07/02/2024 4:18 PM EDT) Glucometer, POC 213(H) 65 - 199 mg/dL 07/02/2024 4:19 PM EDT [facility] Comment:Supplemental ranges: <140 mg/dL before meals <180 mg/dL all other times of the day. Blood CAPILLARY BLOOD / Unknown 07/02/2024 4:18 PM EDT 07/02/2024 4:19 PM EDT Armond Denny MD POINT OF CARE TEST O CEE Performing Organization Address [facility] Co de Phone Number [facility] [place] [address] * (ABNORMAL) POC, GLUCOSE (07/02/2024 11:21 AM EDT) Glucometer, POC 234(H) 65 - 199 mg/dL 07/02/2024 11:21 AM EDT [facility] Comment:Supplemental ranges: <140 mg/dL before meals <180 mg/dL all other times of the day. Blood CAPILLARY BLOOD / Unknown 07/02/2024 11:21 AM EDT 07/02/2024 11:21 AM EDT Armond Denny MD POINT OF CARE TEST O CEE Performing Organization Address City/[facility]/ZIP Co de Phone Number [facility] [place] [address] * POC, GLUCOSE (07/02/2024 7:28 AM EDT) Glucometer, POC 171 65 - 199 mg/dL 07/02/2024 7:28 AM EDT [facility] Comment:Supplemental ranges: <140 mg/dL before meals <180 mg/dL all other times of the day. Blood CAPILLARY BLOOD / Unknown 07/02/2024 7:28 AM EDT 07/02/2024 7:28 AM EDT Armond Denny MD POINT OF CARE TEST O CEE [facility] [place] [address] * Magnesium (07/02/2024 7:12 AM EDT) Magnesium 0.89 0.69 - 1.07 mMol/L 07/02/2024 8:09 AM EDT [facility] Blood VENOUS BLOOD SPECIMEN / Unknown IP Care Team Draw / Unknown 07/02/2024 7:12 AM EDT 07/02/2024 7:19 AM EDT Triston Godinez MD CHEMISTRY ORDERABLES [facility] [place] [address] * Basic Metabolic Panel (07/02/2024 7:12 AM EDT) Glucose 161 65 - 199 mg/dL 07/02/2024 8:09 [facility] Comment:Glucose Concentratio n >=200 mg/dL plus symptoms is consistent with Diabetes Mellitus. Blood Urea Nitrogen 13 10 - 20 mg/dL 07/02/2024 8:09 AM [facility] Creatinine 1.18 0.80 - 1.50 mg/dL 07/02/2024 8:09 AM [facility] Sodium 136 135 - 145 mMol/L 07/02/2024 8:09 AM [facility] Potassium 3.6 3.5 - 5.0 mMol/L 07/02/2024 8:09 AM [facility] Chloride 104 98 - 107 mMol/L 07/02/2024 8:09 AM [facility] Carbon Dioxide 24 22 - 31 mMol/L 07/02/2024 8:09 AM [facility] Anion Gap 8 5 - 15 mMol/L 07/02/2024 8:09 AM [facility] Calcium 8.8 8.5 - 10.5 mg/dL 07/02/2024 8:09 AM [facility] Est Glomerular Filtration Rate - Male 64 mL/min/1. 73 m?? 07/02/2024 8:09 AM [facility] Comment: This patient's estimated GFR [...] AM EDT Triston Godinez MD CHEMISTRY ORDERABLES [facility] [place] [address] * (ABNORMAL) CBC (with Diff) (07/02/2024 7:12 AM EDT) White Blood Cell 5.99 4.00 - 9.50 x10(3)/mc L 07/02/2024 7:41 [facility] Red Blood Cell 3.36(L) 4.58 - 5.54 x10(6)/mc L 07/02/2024 7:41 AM EDT [facility] Hemoglobin 11.3(L) 13.7 - 16.5 g/dL 07/02/2024 7:41 AM [facility] Hematocrit 34.3(L) 40.5 - 48.5 % 07/02/2024 7:41 AM [facility] Mean Cell Volume 102.1(H) 82.9 - 93.1 fL 07/02/2024 7:41 AM [facility] Mean Cell Hemoglobin 33.6(H) 27.5 - 32.1 pg 07/02/2024 7:41 AM [facility] Mean Cell Hemoglobin Concentration 32.9 32.0 - 35.7 g/dL 07/02/2024 7:41 AM [facility] Platelet 155 145 - 357 x10(3)/mc L 07/02/2024 7:41 AM [facility] Mean Platelet Volume 11.3 7.6 - 12.9 fL 07/02/2024 7:41 AM [facility] RDW Standard Deviation 48.2(H) 36.0 - 45.0 fL 07/02/2024 7:41 AM [facility] RDW coefficient of variation 12.9 11.4 - 13.8 % 07/02/2024 7:41 AM [facility] NRBC% auto 0.0 % 07/02/2024 7:41 AM [facility] NRBC Absolute 0.00 0.00 - 0.00 x10(3)/mc L 07/02/2024 7:41 AM [facility] Neutrophil % 75.2 % 07/02/2024 7:41 AM [facility] Neutrophil Absolute 4.50 1.70 - 6.10 x10(3)/mc L 07/02/2024 7:41 AM [facility] Lymph % 14.0 % 07/02/2024 7:41 AM [facility] Lymph Absolute 0.84(L) 0.90 - 3.20 x10(3)/mc L 07/02/2024 7:41 AM [facility] Monocyte % 8.7 % 07/02/2024 7:41 AM [facility] Monocyte Absolute 0.52 0.30 - 0.90 x10(3)/mc L 07/02/2024 7:41 AM [facility] Eos % 1.3 % 07/02/2024 7:41 AM [facility] Eos Absolute 0.08 0.00 - 0.40 x10(3)/mc L 07/02/2024 7:41 AM [facility] Basophil % 0.5 % 07/02/2024 7:41 AM [facility] Baso Absolute 0.03 0.00 - 0.10 x10(3)/mc L 07/02/2024 7:41 AM [facility] Immature Gran % 0.3 % 7:41 AM [facility] Immature Gran Absolute 0.02 0.00 - 0.04 x10(3)/mc L 07/02/2024 7:41 AM EDT [facility] Blood VENOUS BLOOD SPECIMEN / Unknown IP Care Team Draw / Unknown 07/02/2024 7:12 AM EDT 07/02/2024 7:19 AM EDT Triston Godinez MD HEMATOLOGY ORDERABLE S [facility] [place] [address] * CT Abdomen & Pelvis w Contrast (07/02/2024 3:13 AM EDT) WORKSTATION ID [id number] RAD Anatomical Region Laterality Modality Abdomen, Pelvis [...] who have questions please contact the health mall plant caretaker that requested your imaging first. ? Electronically signed by: Gutierrez Hamilton MD, [facility] ([phone]), at 07/02/2024 9:20 AM Narrative 07/02/2024 9:20 [...] patients who have questions please contactthe health mall plant caretaker that requested your imaging first. Electronically signed by: Gutierrez Hamilton MD, [facility]([phone]), at 07/02/2024 9:20 AM Triston Godinez MD IMG CT ORDERABLES * POC, GLUCOSE (07/01/2024 7:58 PM EDT) Glucometer, POC 84 65 - 199 mg/dL 07/01/2024 7:59 PM EDT [facility] Comment:Supplemental ranges: <140 mg/dL before meals <180 mg/dL all other times of the day. Blood CAPILLARY BLOOD / Unknown 07/01/2024 7:58 PM EDT 07/01/2024 7:59 PM EDT Armond Denny MD POINT OF CARE TEST O RDERABLES Performing Organization Address [facility] Co de Phone Number [facility] [place] [address] * POC, GLUCOSE (07/01/2024 6:41 PM EDT) Glucometer, POC 91 65 - 199 mg/dL 07/01/2024 6:41 PM EDT [facility] Comment:Supplemental ranges: <140 mg/dL before meals <180 mg/dL all other times of the day. Blood CAPILLARY BLOOD / Unknown 07/01/2024 6:41 PM EDT 07/01/2024 6:41 PM EDT Armond Denny MD POINT OF CARE TEST O RDMELISSA Performing Organization Address [facility] Co de Phone Number [facility] [place] [address] * EKG 12 Lead (07/01/2024 5:24 PM EDT) Ventricular rate 77 BPM MUSE SYSTEM Atrial Rate 77 BPM MUSE SYSTEM P-R Interval 178 ms MUSE SYSTEM QRS Duration 138 ms MUSE SYSTEM Q-T Interval 418 ms MUSE SYSTEM QTC Calculated (Bezet) 473 ms MUSE SYSTEM Calculated P [place] 63 degrees MUSE SYSTEM Calculated R [place] 87 degrees MUSE SYSTEM Calculated T [place] 8 degrees MUSE SYSTEM INTERPRETATION Normal sinus [...] Modality Other Narrative 07/01/2024 7:47 PM EDT ?[facility] ? Cardiac Catheterization/Intervention Report ? Patient Name: Brian Rodriguez. ? Procedure Date: 07/01/2024 ? A #: [id number] ? Primary Physician: Mogadam, Emad ? Case #: [id number] ? File Name: [id number] ? Catheterization Order Number: [id number] ? [facility] ? Final Report [place], [place] ? Patient Name: ? Brian M. Rodriguez ?ID#: ?[id number] ? : ?1950 ? Procedure Date: ? July 01, 2024 ? Case #: ? [id number] ? Room: ? 5 ? Case Physician: [...] procedure was Urgent. The indication for ?the worm farm laborer visit is ACS less than or equal [...] A premounted 2.75 x 22 mm Rodo Camden (EILEEN) was deployed ? with a maximum [...] dose administered prior to arrival in the worm farm laborer. ?Recommended anti-platelet/anti-thrombotic regimen: ?Continue aspirin 81 mg daily. ?Continue clopidogrel 75 mg daily. ?These recommendations are made at the time of the intervention. Patient ?and provider preferences or a changing clinical situation may require ?modification of this regimen. Consult [facility] Interventional Cardiology for ?questions. [...] ?http://tools.acc.org/DAPTriskapp/#!/content/calculator/ or [facility] ?Interventional Cardiology for questions [...] Procedure Note Lizzette Hayden MD - 07/14/2024 [facility] Cardiac Catheterization/Intervention Report Patient Name: Brian Rodriguez Procedure Date: 07/01/2024 A #: [id number] Primary Physician: Lizzette Hayden Case #: [id number] File Name: [id number] Catheterization Order Number: [id number] [facility] FinalReport [place], [place] Patient Name: Brian Rodriguez ID#:[id number] :1950 Procedure Date: July 01, 2024 Case [...] patient was designated as ASA Class III. [facility]: Vulnerable. Diagnostic Tests: Medications Prior to Procedure: Aspirin, Angiotensin II Receptor Leo and Statin. Indications for Diagnostic Cath: The priority of the diagnostic procedure was Urgent. The indicationfor the worm farm laborer visit is ACS less than or equal [...] time was 37.0 minutes, dose area product [id number] Gy/cm2 and air kerma was 1,874 mGY. [...] The lesion was predilated with a 2.50mm [id number] MM balloon with a maximum inflation pressure of 14atmospheres. A premounted 2.75 x 22 mm Hurdland Camden (EILEEN) wasdeployed with a maximum inflation pressure [...] dose administered prior to arrival in the worm farm laborer. Recommended anti-platelet/anti-thrombotic regimen: Continue aspirin 81 mg daily. Continue clopidogrel 75 mg daily. These recommendations are made at the time of the intervention.Patient and provider preferences or a changing clinical situation mayrequire modification of this regimen. Consult [facility] [place] [place] Interventional Cardiologyfor questions. This [...] http://tools.acc.org/DAPTriskapp/#!/content/calculator/ or [facility] Interventional Cardiology for questions [...] - 199 mg/dL 07/01/2024 11:35 AM EDT [facility] Comment:Supplemental ranges: <140 mg/dL before meals <180 mg/dL all other times of the day. Blood CAPILLARY BLOOD / Unknown 07/01/2024 11:35 AM EDT 07/01/2024 11:35 AM EDT Armond Denny MD POINT OF CARE TEST O RDERABLES [facility] [place] [address] * (ABNORMAL) Hemogram (07/01/2024 10:32 AM EDT) White Blood Cell 7.02 4.00 - 9.50 x10(3)/mc L 07/01/2024 11:20 AM [facility] Red Blood Cell 3.68(L) 4.58 - 5.54 x10(6)/mc L 07/01/2024 11:20 AM [facility] Hemoglobin 12.2(L) 13.7 - 16.5 g/dL 07/01/2024 11:20 AM [facility] Hematocrit 36.5(L) 40.5 - 48.5 % 07/01/2024 11:20 AM [facility] Mean Cell Volume 99.2(H) 82.9 - 93.1 fL 07/01/2024 11:20 AM [facility] Mean Cell Hemoglobin 33.2(H) 27.5 - 32.1 pg 07/01/2024 11:20 AM [facility] Mean Cell Hemoglobin Concentration 33.4 32.0 - 35.7 g/dL 07/01/2024 11:20 AM [facility] Platelet 167 145 - 357 x10(3)/mc L 07/01/2024 11:20 AM [facility] Mean Platelet Volume 11.4 7.6 - 12.9 fL 07/01/2024 11:20 AM [facility] RDW Standard Deviation 46.5(H) 36.0 - 45.0 fL 07/01/2024 11:20 AM [facility] RDW coefficient of variation 12.9 11.4 - 13.8 % 07/01/2024 11:20 AM [facility] NRBC% auto 0.0 % 07/01/2024 11:20 AM [facility] NRBC Absolute 0.00 0.00 - 0.00 x10(3)/mc L 07/01/2024 11:20 AM [facility] Blood VENOUS BLOOD SPECIMEN / Unknown IP Care Team Draw / Unknown 07/01/2024 10:32 AM EDT 07/01/2024 10:54 AM EDT Armond Denny MD HEMATOLOGY ORDERABLE S Performing Organization Address [facility] Co de Phone Number [facility] [place] [address] * Heparin (unfractionated) Level (07/01/2024 10:32 AM EDT) UF Heparin 0.31 IU/mL 07/01/2024 11:25 AM EDT [facility] Comment: Heparin (anti-Xa) levels [...] Organization Address City/[facility]/ZIP Co de Phone Number [facility] [place] [address] * POC, GLUCOSE (07/01/2024 7:18 AM EDT) Glucometer, POC 105 65 - 199 mg/dL 07/01/2024 7:19 AM EDT [facility] Comment:Supplemental ranges: <140 mg/dL before meals <180 mg/dL all other times of the day. Blood CAPILLARY BLOOD / Unknown 07/01/2024 7:18 AM EDT 07/01/2024 7:19 AM EDT Triston Godinez MD POINT OF CARE TEST O RDERABLES Performing Organization Address [facility]/ZIP Co de Phone Number [facility] [place] [address] * Heparin (unfractionated) Level (07/01/2024 3:15 AM EDT) UF Heparin 0.36 IU/mL 07/01/2024 4:23 AM EDT [facility] Comment: Heparin (anti-Xa) levels [...] Organization Address City/[facility]/ZIP Co de Phone Number [facility] [place] [address] * (ABNORMAL) CBC (with Diff) (07/01/2024 3:15 AM EDT) White Blood Cell 5.82 4.00 - 9.50 x10(3)/mc L 07/01/2024 3:54 AM [facility] Red Blood Cell 3.60(L) 4.58 - 5.54 x10(6)/mc L 07/01/2024 3:54 AM [facility] Hemoglobin 11.9(L) 13.7 - 16.5 g/dL 07/01/2024 3:54 AM [facility] Hematocrit 35.6(L) 40.5 - 48.5 % 07/01/2024 3:54 AM [facility] Mean Cell Volume 98.9(H) 82.9 - 93.1 fL 07/01/2024 3:54 AM [facility] Mean Cell Hemoglobin 33.1(H) 27.5 - 32.1 pg 07/01/2024 3:54 AM [facility] Mean Cell Hemoglobin Concentration 33.4 32.0 - 35.7 g/dL 07/01/2024 3:54 AM [facility] Platelet 169 145 - 357 x10(3)/mc L 07/01/2024 3:54 AM [facility] Mean Platelet Volume 11.6 7.6 - 12.9 fL 07/01/2024 3:54 AM [facility] RDW Standard Deviation 46.3(H) 36.0 - 45.0 fL 07/01/2024 3:54 AM [facility] RDW coefficient of variation 12.8 11.4 - 13.8 % 07/01/2024 3:54 AM [facility] NRBC% auto 0.0 % 07/01/2024 3:54 AM [facility] NRBC Absolute 0.00 0.00 - 0.00 x10(3)/mc L 07/01/2024 3:54 AM [facility] Neutrophil % 66.6 % 07/01/2024 3:54 AM [facility] Neutrophil Absolute 3.87 1.70 - 6.10 x10(3)/mc L 07/01/2024 3:54 AM EDT [facility] Lymph % 20.4 % 07/01/2024 3:54 AM EDT [facility] Lymph Absolute 1.19 0.90 - 3.20 x10(3)/mc L 07/01/2024 3:54 AM EDT [facility] Monocyte % 9.6 % 07/01/2024 3:54 AM EDT [facility] Monocyte Absolute 0.56 0.30 - 0.90 x10(3)/mc L 07/01/2024 3:54 AM EDT [facility] Eos % 2.6 % 07/01/2024 3:54 AM EDT [facility] Eos Absolute 0.15 0.00 - 0.40 x10(3)/mc L 07/01/2024 3:54 AM EDT [facility] Basophil % 0.5 % 07/01/2024 3:54 AM EDT [facility] Baso Absolute 0.03 0.00 - 0.10 x10(3)/mc L 07/01/2024 3:54 AM EDT [facility] Immature Gran % 0.3 % 3:54 AM EDT [facility] Immature Gran Absolute 0.02 0.00 - 0.04 x10(3)/mc L 07/01/2024 3:54 AM EDT [facility] Blood VENOUS BLOOD SPECIMEN / Unknown IP Care Team Draw / Unknown 07/01/2024 3:15 AM EDT 07/01/2024 3:37 AM EDT Triston Godinez MD HEMATOLOGY ORDERABLE S [facility] [place] [address] * Magnesium (06/30/2024 11:25 PM EDT) Magnesium 0.84 0.69 - 1.07 mMol/L 07/01/2024 12:14 AM [facility] Blood VENOUS BLOOD SPECIMEN / Unknown IP Care Team Draw / Unknown 06/30/2024 11:25 PM EDT 06/30/2024 11:47 PM EDT Triston Godinez MD CHEMISTRY ORDERABLES [facility] [place] [address] * (ABNORMAL) Basic Metabolic Panel (06/30/2024 11:25 PM EDT) Glucose 145 65 - 199 mg/dL 07/01/2024 12:14 AM [facility] Comment:Glucose Concentratio n >=200 mg/dL plus symptoms is consistent with Diabetes Mellitus. Blood Urea Nitrogen 10 10 - 20 mg/dL 07/01/2024 12:14 AM [facility] Creatinine 1.02 0.80 - 1.50 mg/dL 07/01/2024 12:14 AM [facility] Sodium 141 135 - 145 mMol/L 07/01/2024 12:14 AM [facility] Potassium 3.4(L) 3.5 - 5.0 mMol/L 07/01/2024 12:14 AM [facility] Chloride 106 98 - 107 mMol/L 07/01/2024 12:14 AM [facility] Carbon Dioxide 25 22 - 31 mMol/L 07/01/2024 12:14 AM [facility] Anion Gap 10 5 - 15 mMol/L 07/01/2024 12:14 AM [facility] Calcium 9.2 8.5 - 10.5 mg/dL 07/01/2024 12:14 AM [facility] Est Glomerular Filtration Rate - Male 76 mL/min/1. 73 m?? 07/01/2024 12:14 AM [facility] Comment: This patient's estimated GFR [...] Foundation Fasting Status 07/01/2024 12:14 AM EDT [facility] Blood VENOUS BLOOD SPECIMEN / Unknown IP Care Team Draw / Unknown 06/30/2024 11:25 PM EDT 06/30/2024 11:47 PM EDT Triston Godinez MD CHEMISTRY ORDERABLES [facility] [place] [address] * (ABNORMAL) Troponin-T, Yuriy Sensitivity 3 Hour (06/30/2024 11:25 PM EDT) Troponin-T, High Sensitivity 1,274(H) <=22 ng/L 07/01/2024 12:14 AM EDT [facility] Comment: This patient's troponin T concentration [...] troponin value can be found in the [facility] Test Catalog Troponin - https://[email or web address].org/catalogs/565/files/72842 Reference: Fourth [place] Definition of Myocardial Infarction. Journal of the [place] [employer] 2018;72:3247-3908 Troponin-T, HS 3 hr delta 65 ng/L 07/01/2024 12:14 AM EDT [facility] Comment:The 3 hour Troponin T delta value is the absolute difference between the Troponin T concentrations of the initial and subsequent sample collected between 2 h: 45 min and 6 h following the initial collection Blood VENOUS BLOOD SPECIMEN / Unknown IP Care Team Draw / Unknown 06/30/2024 11:25 PM EDT 06/30/2024 11:47 PM EDT Triston Godinez MD CHEMISTRY ORDERABLES [facility] [place] [address] * (ABNORMAL) Troponin-T, High Sensitivity 1 Hour (06/30/2024 8:22 PM EDT) Troponin-T, High Sensitivity 1,234(H) <=22 ng/L 06/30/2024 9:22 PM EDT [facility] Comment: This patient's troponin T concentration [...] troponin value can be found in the [facility] Test Catalog Troponin - [email or web address].org/catalogs/565/files/86474 Reference: Fourth [place] Definition of Myocardial Infarction. Journal of the [place] [employer] 2018;72:8147-4898 Troponin-T, HS 1 hr delta 06/30/2024 9:22 PM EDT [facility] Comment:Delta troponin value not calculated, sample collected outside of delta calculation time limit. Blood VENOUS BLOOD SPECIMEN / Unknown Venipuncture / Unknown 06/30/2024 8:22 PM EDT 06/30/2024 8:40 PM EDT Triston Godinez MD CHEMISTRY ORDERABLES Performing Organization Address [facility]/ZIP Co de Phone Number [facility] [place] [address] * POC, GLUCOSE (06/30/2024 7:56 PM EDT) Glucometer, POC 144 65 - 199 mg/dL 06/30/2024 7:57 PM EDT [facility] Comment:Supplemental ranges: <140 mg/dL before meals <180 mg/dL all other times of the day. Blood CAPILLARY BLOOD / Unknown 06/30/2024 7:56 PM EDT 06/30/2024 7:57 PM EDT Triston Godinez MD POINT OF CARE TEST O RDERABLES Performing Organization Address City/[facility]/ZIP Co de Phone Number [facility] [place] [address] * XR Abdomen Flat & Upright (06/30/2024 6:56 PM EDT) WORKSTATION ID [id number] RAD Anatomical Region Laterality Modality Abdomen N/A Digital Radiogra phy Impressions 06/30/2024 9:12 PM EDT No obstruction or perforation. Thank you for letting us participate in the care of this patient. ??If you are a health care provider and have any questions regarding this report, please contact the number below. ??For patients who have questions please contact the health mall plant caretaker that requested your imaging first. ? Narrative [...] patients who have questions please contactthe health mall plant caretaker that requested your imaging first. Triston Godinez MD IMG DX ORDERABLES * (ABNORMAL) Troponin-T, High Sensitivity (06/30/2024 6:09 PM EDT) Troponin-T, High Sensitivity Initial 1,209(HHH ) <=22 ng/L 06/30/2024 7:23 PM EDT [facility] Comment: This patient's troponin T concentration [...] troponin value can be found in the [facility] Test Catalog Troponin - https://[email or web address].org/catalogs/565/files/83165 Reference: Fourth [place] Definition of Myocardial Infarction. Journal of the [place] [employer] 2018;72:6187-6789 Blood VENOUS BLOOD SPECIMEN / Unknown Venipuncture / Unknown 06/30/2024 6:09 PM EDT 06/30/2024 6:18 PM EDT Triston Godinez MD CHEMISTRY ORDERABLES [facility] [place] [address] * (ABNORMAL) Basic Metabolic Panel (06/30/2024 6:09 PM EDT) Glucose 06/30/2024 8:08 PM [facility] Comment:Insufficient sample. Informed Alli Meyers at 20:07, 06.30.2024. Blood Urea Nitrogen 10 10 - 20 mg/dL 06/30/2024 8:08 PM [facility] Creatinine 0.98 0.80 - 1.50 mg/dL 06/30/2024 8:08 PM [facility] Sodium 140 135 - 145 mMol/L 06/30/2024 8:08 PM [facility] Potassium 4.2 3.5 - 5.0 mMol/L 06/30/2024 8:08 PM [facility] Chloride 105 98 - 107 mMol/L 06/30/2024 8:08 PM [facility] Carbon Dioxide 21(L) 22 - 31 mMol/L 06/30/2024 8:08 PM [facility] Anion Gap 14 5 - 15 mMol/L 06/30/2024 8:08 PM [facility] Calcium 06/30/2024 8:08 PM [facility] Comment:Insufficient sample. Informed Alli Meyers at 20:07, 06.30.2024. Est Glomerular Filtration Rate - Male 80 mL/min/1. 73 m?? 06/30/2024 8:08 PM [facility] Comment: This patient's estimated GFR [...] Foundation Fasting Status Yes 06/30/2024 8:08 PM [facility] Blood VENOUS BLOOD SPECIMEN / Unknown Venipuncture / Unknown 06/30/2024 6:09 PM EDT 06/30/2024 6:18 PM EDT Triston Godinez MD CHEMISTRY ORDERABLES [facility] [place] [address] * Lipid Panel (Reflex Direct LDL) (06/30/2024 6:09 PM EDT) Cholesterol, Total 197 mg/dL 06/30/2024 6:51 PM EDT [facility] Comment: Desirable: < 200 mg/dL Borderline High: 200 - 239 mg/dL High: > or = 240 mg/dL Triglyceride 230 mg/dL 06/30/2024 6:51 PM EDT [facility] Comment: Normal: <150 mg/dL Borderline High: 150-199 mg/dL High: 200-499 mg/dL Very High: > or =500 mg/dL HDL Cholesterol 36 mg/dL 6:51 PM EDT [facility] Comment:Males: High Risk: <4 0 mg/dL LDL Cholesterol 120 mg/dL 6:51 PM EDT [facility] Comment: Desirable: <100 mg/dL Above Desirable: 100-129 mg/dL Borderline High: 130-159 mg/dL High: 160-189 mg/dL Very High: > or =190 mg/dL Note: LDL calculation updated to the NIH LDL formula as of 06/26/2024 Non-HDL Cholesterol 161 mg/dL 06/30/2024 6:51 PM EDT [facility] Comment: Desirable: <130 mg/dL Above Desirable: 130-159 mg/dL Borderline High: 160-189 mg/dL High: 190-219 mg/dL Very High: > or = 220 mg/dL Blood VENOUS BLOOD SPECIMEN / Unknown Venipuncture / Unknown 06/30/2024 6:09 PM EDT 06/30/2024 6:18 PM EDT Narrative [facility] - 06/30/2024 6:51 PM EDT It [...] ACC/AHA Guidelines (most recently Brianne et al. [facility] 08/26/22): * For individuals with atherosclerotic cardiovascular [...] Godinez MD CHEMISTRY ORDERABLES Performing Organization Address City/[facility]/ZIP Co de Phone Number [facility] [place] [address] * (ABNORMAL) pro-Brain Natriuretic Peptide (06/30/2024 6:09 PM EDT) NT-proBNP 2,259(H) <=449 pg/mL 06/30/2024 6:51 PM EDT [facility] Blood VENOUS BLOOD SPECIMEN / Unknown Venipuncture / Unknown 06/30/2024 6:09 PM EDT 06/30/2024 6:18 PM EDT Triston Godinez MD CHEMISTRY ORDERABLES Performing Organization Address City/[facility]/ZIP Co de Phone Number [facility] [place] [address] * TSH (06/30/2024 6:09 PM EDT) Pathologist [facility] Thyroid Stimulating Hormone 2.80 0.27 - 4.20 mcIU/mL 06/30/2024 6:51 PM EDT [facility] Blood VENOUS BLOOD SPECIMEN / Unknown Venipuncture / Unknown 06/30/2024 6:09 PM EDT 06/30/2024 6:18 PM EDT Triston Godinez MD CHEMISTRY ORDERABLES Performing Organization Address City/[facility]/ZIP Co de Phone Number [facility] [place] [address] * Heparin (unfractionated) Level (06/30/2024 6:08 PM EDT) Pathologist [facility] UF Heparin 0.07 IU/mL 06/30/2024 6:34 PM EDT [facility] Comment: Heparin (anti-Xa) levels [...] EDT Triston Godinez MD HEMATOLOGY ORDERABLE S [facility] [place] [address] * (ABNORMAL) CBC (with Diff) (06/30/2024 6:08 PM EDT) White Blood Cell 6.45 4.00 - 9.50 x10(3)/mc L 06/30/2024 6:36 PM EDT [facility] Red Blood Cell 3.78(L) 4.58 - 5.54 x10(6)/mc L 06/30/2024 6:36 PM EDT [facility] Hemoglobin 12.7(L) 13.7 - 16.5 g/dL 06/30/2024 6:36 PM EDT [facility] Hematocrit 38.0(L) 40.5 - 48.5 % 06/30/2024 6:36 PM EDT [facility] Mean Cell Volume 100.5(H) 82.9 - 93.1 fL 06/30/2024 6:36 PM EDT [facility] Mean Cell Hemoglobin 33.6(H) 27.5 - 32.1 pg 06/30/2024 6:36 PM EDT [facility] Mean Cell Hemoglobin Concentration 33.4 32.0 - 35.7 g/dL 06/30/2024 6[facility] Platelet 79(L) 145 - 357 x10(3)/mc L 06/30/2024 6:36 PM [facility] Mean Platelet Volume 11.2 7.6 - 12.9 fL 06/30/2024 6:36 PM [facility] RDW Standard Deviation 48.4(H) 36.0 - 45.0 fL 06/30/2024 6:36 PM [facility] RDW coefficient of variation 13.0 11.4 - 13.8 % 06/30/2024 6:36 PM [facility] NRBC% auto 0.0 % 06/30/2024 6:36 PM [facility] NRBC Absolute 0.00 0.00 - 0.00 x10(3)/mc L 06/30/2024 6:36 PM [facility] Neutrophil % 71.2 % 06/30/2024 6:36 PM [facility] Neutrophil Absolute 4.59 1.70 - 6.10 x10(3)/mc L 06/30/2024 6:36 PM [facility] Lymph % 18.1 % 06/30/2024 6:36 PM [facility] Lymph Absolute 1.17 0.90 - 3.20 x10(3)/mc L 06/30/2024 6:[facility] Monocyte % 8.2 % 06/30/2024 6:36 PM [facility] Monocyte Absolute 0.53 0.30 - 0.90 x10(3)/mc L 06/30/2024 6:36 PM [facility] Eos % 1.7 % 06/30/2024 6:36 PM [facility] Eos Absolute 0.11 0.00 - 0.40 x10(3)/mc L 06/30/2024 6:36 [facility] Basophil % 0.6 % 06/30/2024 6:36 PM EDT [facility] Baso Absolute 0.04 0.00 - 0.10 x10(3)/mc L 06/30/2024 6:36 PM EDT [facility] Immature Gran % 0.2 % 6:36 PM EDT [facility] Immature Gran Absolute 0.01 0.00 - 0.04 x10(3)/mc L 06/30/2024 6:36 PM EDT [facility] Blood VENOUS BLOOD SPECIMEN / Unknown Venipuncture / Unknown 06/30/2024 6:08 PM EDT 06/30/2024 6:18 PM EDT Triston Godinez MD HEMATOLOGY ORDERABLE S [facility] [place] [address] * (ABNORMAL) Hemoglobin A1c (06/30/2024 6:08 PM EDT) Hemoglobin A1c 7.3(H) 4.3 - 5.6 % 06/30/2024 9:03 PM EDT [facility] Comment: Per ADA guidelines, without clear [...] red blood cell turnover may not be accounts receivable representative of glycemic control. Reference Interval: 4.3 - 5.6% 5.7 - 6.4%: Consistent with prediabetes >=6.5%: Consistent with diagnosis of diabetes mellitus Estimated Average Glucose 06/30/2024 9:03 PM EDT [facility] Comment:Not Calculated. Blood VENOUS BLOOD SPECIMEN / Unknown Venipuncture / Unknown 06/30/2024 6:08 PM EDT 06/30/2024 6:18 PM EDT Narrative [facility] - 06/30/2024 9:03 PM EDT Estimated average glucose (eAG) is calculated from the equation described in: John ELLISON, Inna J, Nic R, et al. ??Translating the A1C assay into estimated average glucose values. ??Diabetes Care 2008:31(8):7979-7952. Additional resources are available on the ADA website (diabetes.org). Triston Godinez MD CHEMISTRY ORDERABLES Performing Organization Address [facility] Co de Phone Number [facility] [place] [address] * POC, GLUCOSE (06/30/2024 5:58 PM EDT) [facility] Glucometer, POC 148 65 - 199 mg/dL 06/30/2024 5:58 PM EDT [facility] Comment:Supplemental ranges: <140 mg/dL before meals <180 mg/dL all other times of the day. Blood CAPILLARY BLOOD / Unknown 06/30/2024 5:58 PM EDT 06/30/2024 5:58 PM EDT Triston Godinez MD POINT OF CARE TEST O RDERABLES Performing Organization Address [facility] Co de Phone Number [facility] [place] [address] * EKG 12 Lead (06/30/2024 5:23 PM EDT) Ventricular rate 73 BPM MUSE SYSTEM Atrial Rate 300 BPM MUSE SYSTEM QRS Duration 72 ms MUSE SYSTEM Q-T Interval 404 ms MUSE SYSTEM QTC Calculated (Bezet) 445 ms MUSE SYSTEM Calculated P Wellington 71 degrees MUSE SYSTEM Calculated R [place] 65 degrees MUSE SYSTEM Calculated T [place] 30 degrees MUSE SYSTEM INTERPRETATION Normal sinus [...] 9:26 PM EDT ? Version: 1 Name: RODRIGUEZ BRIAN Joya ?Study Date: 06/30/2024, 4: 39 PM ?BP: 137 / 78 mmHg ?Patient Location: L3WB^374^A : 1950 (MM/DD/YYYY) ? Height: 193 cm ? Age: 74 Years ? Weight: 113 kg Gender: Male ?BSA: 2.43 m?? Ordering Physician: TRISTON GODINEZ Referring Physician: KENJI THOMAS Performed By: Carol Villarreal Reason For Study: NSTEMI (non-ST elevation myocardial infarction) Exam Location: [facility]. ? Conclusions -Left ventricular systolic function is moderately reduced. The left ventricular ejection fraction is 36% by Dowd's biplane. The anterolateral and inferolateral barahona are akinetic. The anterior wall is hypokinetic. -Right ventricle is mildly dilated. Systolic function is normal. -No significant valve disease. -See report for additional findings. No prior study is available. Procedure Complete-14618. Image enhancement Optison was used for left [...] NSTEMI (non-ST elevation myocardial infarction) Exam Location: [facility]. Conclusions -Left ventricular systolic function is moderately reduced. The leftventricular ejection fraction is 36% by Dowd's biplane. The anterolateral andinferolateral barahona are akinetic. The anterior wall is hypokinetic. -Right ventricle is mildly dilated. Systolic function is normal. -No significant valve disease. -See report for additional findings. No prior study is available. Procedure Complete-[id number]. Image enhancement Optison was used for left [...] (Bezet) 460 ms MUSE SYSTEM Calculated P Wellington 69 degrees MUSE SYSTEM Calculated R Wellington 78 degrees MUSE SYSTEM Calculated T Wellington 39 degrees MUSE SYSTEM INTERPRETATION Sinus rhythm [...] 0824 (Given - Provider: Jenny Reddy, RONY) 0836 (Given - Provider: Jenny Reddy RN) enoxaparin (Lovenox) (40 mg/0.4 mL) subcutaneous injection 40 mg 40 mg, Subcutaneous, NIGHTLY, First dose on Thu07/03/24 at 2100, Until Discontinued, Routine 2010 (Given - Provider: Shea Shaver RN) folic acid (Vitamin B9) tablet 1,000 mcg 1,000 mcg, Oral, DAILY, First dose on Thu06/30/24 at 1730, Until Discontinued, Routine 08 (Given - Provider: Sujata Duncan RN) 08 [...] if BG less than 70 mg/dL., Routine 0837 (Given - Provider: Jenny Reddy RN)1305 (Given - Provider: Jenny Reddy RN) insulin lispro (HumaLOG;Admelog) (100 unit/mL) subcutaneous [...] hours., Routine 0808 (Given - Provider: Sujata Duncan RN)1121 (Given [...] , Routine 0130 (Given - Provider: Shea hSaver RN) iohexoL (Omnipaque) radiology oral prep (50 [...] 0824 (Given - Provider: Jenny Reddy RN) 0900 (Given - Provider: Jenny Reddy, RONY) [...] on Thu07/03/24 at 1200, Last dose on 07/04/24 at 0000, Routine 1214 (Given - Provider: [...] Discontinued, Routine 0350 (Given - Provider: Shea Shaver, RN)1621 (Given - Provider: Sujata Duncan, RN) 0338 (Given - Provider: Shea Shaver RN)1527 (Given - Provider: Jenny Reddy, RN) 0316 (Given - Provider: Shea Shaver, RN)1500 (Due - Provider: Iram De Jesus [facility]) tamsulosin (Flomax) capsule 0.8 mg 0.8 mg, Oral, DAILY, First dose on Thu06/30/24 at 1615, Until Discontinued, DO NOT CRUSH OR CHEW, Routine 0809 (Given - Provider: Sujata Duncan RN) 0824 (Given - Provider: Jenny Reddy, RN) 0836 (Given - Provider: Jenny Reddy, RN) PRN Medication Order 07/02/2024 07/03/2024 07/04/2024 [...] Intravenous, EVERY 15 MIN PRN, Starting on Thu06/30/24 at 1630, Until Thu07/04/24 at 1725, For [...] PRN, Starting on Thu06/30/24 at 1630, Until 07/04/24 at 1725, Low [...] 06/30/24 at 1630, Until 07/04/24 at 1725, Wheezing, Routine lidocaine (Xylocaine) 1% (10 mg/mL) injection 3 mg 3 mg (0.3 mL), Subcutaneous, ONCE PRN, 1 dose, Starting on Tresa 8/8/24 at 1558, Until Thu07/04/24 at 1725, for discomfort with PIV insertion, Routine nitroGLYcerin (Nitrostat) disintegrating tablet 0.4 mg 0.4 mg, Sublingual, EVERY 5 MIN PRN, Starting on Thu06/30/24 at 1558, Until Thu07/04/24 at 1725, Chest [...] Routine documented in this encounter Care Teams Manager Care Relationship Specialty Start Date End Date Deacon Watters APRN [address] [place] [address] [address] [place] [address] PCP - General Family Medicine 02/17/22 documented as of this encounter
--- OUTSIDE RECORDS SUMMARY | 2024-07-15 13:36 | XMS_ITS | Encounter Summary ---
Author Organization [facility] Address [facility] [place] [address] Care Team Providers Care Water Reuse Program Manager Name Role Phone Deacon Watters APRN Primary Care Provider +1- [phone] Encounter Details Date Type Department Care Team (Latest Contact Info) Description 06/06/2024 8:00 AM EDT Office [place] [address] Marcelle Weinberg BUNG REMOVER [facility] [place] [address] Left sided colitis without complications Social History [...] for cramping - Repeat routine labs today( [facility]) and submit stool calprotectin ( [facility]). - Follow up with Dermatology regarding skin [...] colitis Overview Note: Colonoscopy 04/08/10 (Dr. Gomes [facility]) - inflammation only within the rectum and sigmoid; extent of the exam was to the hepatic flexure; biopsies proximal to the sigmoid nl Repeat exam 11/27/11 ([facility] ascending colon. Several HPs and one TA. [place] 03/2022 - Calvo 1 limited to rectosigmoid, diverticulosis. No dysplasia TREATMENT: cortenemas, Asacol, Rowasa, prednisone, and imodium [place] 12/2023- Ileum was normal. Calvo 1 inflammation [...] - 199 mg/dL Final COLONOSCOPY 01/20/2024 Final Value:[facility] Endoscopy Procedure Date: 01/20/2024 10:01 AM Patient Name: Brian Rodriguez Date of : 1950 Age: 73 Order #: [id number] Instrument Name: [id number] Procedure: Colonoscopy Indications: Follow-up of left-sided chronic [...] by the physician, the nurse and the mechanical design technician in the pre-procedure area in the [...] 10:01 AM Surgical Pathology Report 01/20/2024 Final Value:[id number] Location: 4T; EA12; A The signing pathologist [...] MD Verified: 01/29/2024 12:04 Pathologist Performed at: -[facility] Dept. of Pathology, [facility] [address], [place] [address] Plaster Tender: Joana Soler MD, AP, [place] Certificate: [id number] SPECIMEN(S) SUBMITTED A - right colon, biopsy [...] for cramping - Repeat routine labs today( [facility]) and submit stool calprotectin ( [facility]). - Follow up with Dermatology regarding skin rash on your groin. - Follow up with Dr. Barlow in 4 months Please contact me if there are any further questions regarding the care of this patient. Shan Weinberg APRN [facility] Section of Gastroenterology and Hepatology [address] [address] documented in this encounter Plan of Treatment Upcoming Encounters Date Type Department Care Team (Late st Contact Info) Description 08/15/2024 9:00 AM EDT Office [place] [address] Dion Barlow MD [facility] [place] [address] 09/01/2024 9:40 AM EDT Office Visit Cardiology at [address] [place] [address] Franky Shaver MD [facility] [place] [address] 09/01/2024 11:20 AM EDT Office Visit Dermatology at [facility] [address] [place] [address] Gómez Mercer MD [facility] DR EDD[place] [address] 09/21/2024 2:45 PM EDT Office Visit [facility] [place] [address] Trung Hoyos MD [facility] [address] documented as of this encounter Procedures Procedure [...] Agency Comment Spec In Lab MonalisaDg Weinberg BUNG REMOVER MICROBIOLOGY - GE NERAL ORDERABLES Performing Organization Address [facility] Co de Phone Number [facility] [place] [address] * (ABNORMAL) Calprotectin, Stool (06/06/2024 5:30 PM EDT) Pathologist [facility] Calprotectin, Stool 112(H) <=79 mcg/g [facility] Comment: Calprotectin Concentration ? Interpretation ? < 80 mcg/g ?Normal ? 80 ? 160 mcg/g ?Borderline ? >160 mcg/g ?Elevated Stool 06/06/2024 5:30 PM EDT 06/07/2024 1:07 PM EDT Narrative Resulting Agency Comment Spec In Lab MonalisaDg Weinberg BUNG REMOVER BODY FLUIDS AND S TOOLS ORDERABLES Performing Organization Address [facility] de Phone Number [facility] [place] [place] [address] * Differential, Automated (06/06/2024 9:04 AM EDT) Pathologist [facility] Neutrophil % 70.3 % [facility] Neutrophil Absolute 4.36 1.70 - 6.10 x10(3)/[facility] LAB[facility] Lymph % 19.7 % [facility] Lymphocytes Abs 1.2 0.9 - 3.2 x10(3)/[facility] LABORATORY Monocyte % 7.7 % [facility] Monocyte Abs 0.5 0.3 - 0.9 x10(3)/[facility] LABORATORY Eos % 1.3 % [facility] Eosinophils Abs 0.1 0.0 - 0.4 x10(3)/[facility] LABORATORY Basophil % 0.5 % [facility] Baso Absolute 0.0 0.0 - 0.1 x10(3)/[facility] LABORATORY Immature Gran % 0.50 % [facility] Comment: Immature granulocytes(IG's)percentage and absolute count will include metamyelocytes, myelocytes, and promyelocytes. Blood smears from CBCs yielding IG's will be scanned manually for concordance. If this scan disagrees with the automated IG or if promyelocytes are noted, a manual differential will be performed. Immature Gran Absolute 0.03 0.00 - 0.04 x10(3)/[facility] LAB[facility]AT[facility] Blood 06/06/2024 9:04 AM EDT 06/06/2024 9:12 AM EDT Narrative Resulting Agency Comment Spec In Lab Marcelle Weinberg BUNG REMOVER HEMATOLOGY ORDERA BLES [facility] [place] [place] [address] * (ABNORMAL) Hemogram (06/06/2024 9:04 AM EDT) [...] Standard Deviation 46.7(H) 36.0 - 45.0 fL [facility] RDW coefficient of variation 13.1 11.4 - 13.8 % [facility] Mean Platelet Volume 11.3 7.6 - 12.9 [facility] LABORATORY NRBC% auto 0.0 % [facility] NRBC Absolute 0.000 0.000 - 0.000 x10(3)/mc L [facility] Blood 06/06/2024 9:04 AM EDT 06/06/2024 9:12 AM EDT Narrative Resulting Agency Comment Spec In Lab Marcelle Weinberg BUNG REMOVER HEMATOLOGY ORDERA BLES Performing Organization Address City/[facility]/ZIP Co de Phone Number [facility] [place] [address] * (ABNORMAL) CRP, acute inflammation (06/06/2024 9:04 AM EDT) C-Reactive Protein 6.4(H) <=4.9 mg/L [facility] Blood 06/06/2024 9:04 AM EDT 06/06/2024 9:12 AM EDT Narrative Resulting Agency Comment Spec In Lab Marcelle Weinberg BUNG REMOVER CHEMISTRY ORDERAB LES [facility] [place] [address] * Sedimentation rate (06/06/2024 9:04 AM EDT) [...] Agency Comment Spec In Lab MonalisaDg Weinberg BUNG REMOVER HEMATOLOGY ORDERA BLES [facility] [place] [address] * Comprehensive metabolic panel (non-fasting) (06/06/2024 9:04 [...] APRN CHEMISTRY ORDERAB LES Performing Organization Address City/State/[facility] Co de Phone Number [facility] [place] [address] documented in this encounter Visit Diagnoses Diagnosis Left sided colitis without complications Left sided ulcerative (chronic) colitis documented in this encounter Care Teams Water Reuse Program Manager Relationship Specialty Start Date End Date Deacon Watters APRN [address] [place] [address] PCP - General Family Medicine 02/17/22 documented as of this encounter
--- OUTSIDE RECORDS SUMMARY | 2024-07-15 13:36 | XMS_ITS | Encounter Summary ---
Author Organization [facility] [place] [address] Care Team Providers Care Formula Mixer Name Role Phone Deacon Watters APRN Primary Care Provider +1- [phone] Encounter Details Date Type Department Care Team (Late st Contact Info) Description 06/09/2024 Telephone [place] [phone] aMrcelle Weinberg AWS SOLUTION ARCHITECT [facility] [place] [address] Social History Tobacco Use Types Packs/Day Years [...] 9:00 AM EDT Office [place] [phone] Dion Barlow MD [facility] [place] [address] 09/01/2024 9:40 AM EDT Office Visit Cardiology at [address] [address] Franky Shaver MD [facility] [place] [address] 09/01/2024 11:20 AM EDT Office Visit Dermatology at [address] [address] Gómez Mercer MD [facility] DR [place] [address] 09/21/2024 2:45 PM EDT Office Visit [facility] [place] [phone] Trung Hoyos MD [facility] [address] Scheduled Orders Name Type Priority Associated Diagnoses Orde r Schedule Calprotectin, Stool Lab Routine Left sided colitis without complications Expected: 08/01/2024 (Approximate), Expires: 06/09/2025 documented as of this encounter Visit Diagnoses Diagnosis Left sided colitis without complications Left sided ulcerative (chronic) colitis documented in this encounter Care Teams Formula Mixer Relationship Specialty Start Date End Date Deacon Watters APRN [address] [place] [address] PCP - General Family Medicine 02/17/22 documented as of this encounter
--- OUTSIDE RECORDS SUMMARY | 2024-07-15 13:36 | XMS_ITS | Encounter Summary ---
Author Organization [facility] Address [facility] [place] [address] Care Team Providers Care Cigar Tobacco Rehandler Name Role Phone Deacon Watters APRN Primary Care Provider +1- [phone] Encounter Details Date Type Department Care Team (Late st Contact Info) Description 06/29/2024 [place] [address] Social History Tobacco Use Types Packs/Day Years Used Date Smoking Tobacco: Former Cigarettes 4 30 1 12/01/1961 - 10/01/1992 Smokeless Tobacco: Former Chew Comments:Denies vaping Alcohol Use Standard Drinks/Week Comments Yes 0 (1 standard drink = 0.6 oz pur e alcohol) twice a year [facility] Utilities Answer Date Recorded In [...] any time in the past 12 m [facility], were you homeless or living in a skilled nursing (including now)? No 07/01/2024 IPV Inpatient Questions [...] 9:00 AM EDT Office [place] [address] Dion Barlow MD [facility] [place] [address] 09/01/2024 9:40 AM EDT Office Visit Cardiology at [address] [phone] Franky Shaver MD [facility] [place] [address] 09/01/2024 11:20 AM EDT Office Visit Dermatology at [facility] [address] [place] [phone] Gómez Mercer MD [facility] DR [place] [address] 09/21/2024 2:45 PM EDT Office Visit [place] [address] Trung Hoyos MD [facility] [place] [address] documented as of this encounter Procedures Procedure Name Priority Date/Time Associated Diagnosis Comments MISC EXTERNAL CARDIOLOGY RESULT Routine 06/29/2024 4:33 PM EDT documented in this encounter Results * External Cardiology Result (06/29/2024 4:33 PM EDT) Anatomical Region Laterality Modality Other Historical Provider EXTERNAL CARDIOLO GY RESULT documented in this encounter Visit Diagnoses Not on filedocumented in this encounter Care Teams Cigar Tobacco Rehandler Relationship Specialty Start Date End Date Deacon Watters, JAZMINE [address] [place] [address] PCP - General Family Medicine 02/17/22 documented as of this encounter
--- OUTSIDE RECORDS SUMMARY | 2024-07-15 13:36 | XMS_ITS | Encounter Summary ---
Author Organization [facility] [place] [address] Care Team Providers Care Life Skills Coordinator Volunteer Name Role Phone Deacon Watters APRN Primary Care Provider +1- [phone] Encounter Details Date Type Department Care Team (Latest Contact Info) Description 06/06/2024 12:56 PM EDT - 06/06/2024 11:59 PM EDT Hospital [place] [address] Left sided colitis without complications Discharge Disposition: [...] tablet Take 10 mg by mouth daily. gabapentin (Neurontin) 300 mg Capsule Take 300 [...] 9:00 AM EDT Office [place] [address] Dion Barlow MD [facility] [place] [address] 09/01/2024 9:40 AM EDT Office Visit Cardiology at [address] [phone] Franky Shaver MD [facility] [place] [address] 09/01/2024 11:20 AM EDT Office Visit Dermatology at [place] [address] [place] [phone] Gómez Mercer MD [facility] [place] [address] 09/21/2024 2:45 PM EDT Office Visit [facility] [place] [phone] Trung Hoyos MD [facility] [place] [address] documented as of this encounter Procedures Procedure Name Priority Date/Time Associated Diagnosis Comments HC C. DIFF QUIK CHEK ANTIGEN Routine 06/06/2024 5:30 PM EDT Left sided colitis without complications CALPROTECTIN,STOOL Routine 06/06/2024 5: 30 PM EDT Left sided colitis without complications documented in this encounter Results * (ABNORMAL) Calprotectin, Stool (06/06/2024 5:30 PM EDT) Calprotectin, Stool 112(H) <=79 mcg/g [facility] Comment: Calprotectin Concentration ? Interpretation ? < 80 mcg/g ?Normal ? 80 ? 160 mcg/g ?Borderline ? >160 mcg/g ?Elevated Stool 06/06/2024 5:30 PM EDT 06/07/2024 1:07 PM EDT Narrative Resulting Agency Comment Spec In Lab Marcelle Weinberg PIE MAKER BODY FLUIDS AND S TOOLS ORDERABLES Performing Organization Address [facility] Co de Phone Number [facility] [place] [address] * C. Difficile Screen (06/06/2024 5:30 PM EDT) C Diff Interp Negative Negative [facility] Comment: Ag/Tox Neg C. diff?? Negative Clostridium difficile is not present in the specimen. If patient is having diarrhea suspected to be from an infectious cause, then Soap & Water Contact Precautions are still required. Stool 06/06/2024 5:30 PM EDT 06/07/2024 1:32 PM EDT Narrative Resulting Agency Comment Spec In Lab Marcelle Weinberg PIE MAKER MICROBIOLOGY - GE NERAL ORDERABLES Performing Organization Address [facility] Co de Phone Number [facility] [place] [address] documented in this encounter Visit Diagnoses Diagnosis Left sided colitis without complications Left sided ulcerative (chronic) colitis documented in this encounter Care Teams Life Skills Coordinator Volunteer Relationship Specialty Start Date End Date Deacon Watters APRN [address] [place], [place] [address] [address] [place] [address] PCP - General Family Medicine 02/17/22 documented as of this encounter
--- OUTSIDE RECORDS SUMMARY | 2024-07-15 13:36 | XMS_ITS | Encounter Summary ---
Author Organization [facility]ina [facility] [place] [address] Care Team Providers Care Light Technician Name Role Phone Deacon Watters APRN Primary Care Provider +1- [phone] Reason for Visit * Reason Comments Neck Pain * Consultation (Routine) - Closed Specialty Diagnoses / Procedures Referred By Contac t Referred To Contact Pain and Spine Center Diagnoses Spondylosis of cervical region without myelopathy or radiculopathy Santiago Morales PA [facility] [place] [address] [facility] [place] [address] Referral ID Status Reason Start Date Expiration Date V isits Requested Visits Authorized [id number] Closed Pain Consult 04/06/2024 04/06/2025 1 1 Encounter Details Date Type Department Care Team (Latest Contact Info) Description 06/22/2024 8:00 AM EDT Office Visit [place] [address] [facility] [place] [address] Radiculopathy of cervical region (Primary Dx) Social History Tobacco Use Types Packs/Day Years Used Date Smoking Tobacco: Former Cigarettes 4 30 1 12/01/1961 - 10/01/1992 Smokeless Tobacco: Former Chew Comments:Denies vaping Alcohol Use Standard Drinks/Week Comments Yes 0 (1 standard drink = 0.6 oz pur e alcohol) twice a year [facility] Utilities Answer Date Recorded In the [...] any time in the past [address] [facility], were you homeless or living in a prison (including now)? No 07/01/2024 IPV Inpatient Questions [...] from the original note were not included. [facility] Initial Consultation Note DOS: 06/22/24 : 1950 Brian Rodriguez is a 73 y.o. year old male who presents to the pain clinic today at the referral of: Santiago Morales PA [facility] [place] [address] for consideration of treatment for his pain CC: Left-sided neck pain HPI: Brian Rodriguez prefers to be called Eduardo. He is alone today for this visit. He describes left-sided neck pain associated with some left hand weakness. 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 He indicated that he once fell over 50 feet onto his head holding his hard hat, injuring his neck, and crushing his right hand. He was taken to [facility] at that time. He recovered, had hand surgeries, including pin placement in [address] 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 Of note he helped build [facility] in the late or early He indicated he had a cortisone injection in his right shoulder which was helpful once. He had a possible lumbar epidural steroid injection at [facility] at least 25 years ago that helped. [...] 3.66) performed by Dion Osullivan MD at [facility] ENDOSCOPY PRO COLONOSCOPY, BIOPSY N/A 02/22/2019 COLONOSCOPY FLEXIBLE, WITH BX (WRVU 3.66) performed by Dion Osullivan MD at [facility] ENDOSCOPY PRO COLONOSCOPY, BIOPSY N/A 03/28/2022 COLONOSCOPY FLEXIBLE, WITH BX (WRVU 3.66) performed by Mona Turner MD at [facility] ENDOSCOPY PRO COLONOSCOPY, BIOPSY N/A 01/20/2024 COLONOSCOPY FLEXIBLE, WITH BX (WRVU 3.56) performed by Anthony Hamlin MD at [facility] ENDOSCOPY PRO COLONOSCOPY, DIAGNOSTIC 11/27/2011 COLONOSCOPY, DIAGNOSTIC performed by Dion OSULLIVAN at [facility] ENDOSCOPY PRO COLONOSCOPY, DIAGNOSTIC 07/13/2014 COLONOSCOPY, DIAGNOSTIC performed by Dion Osullivan MD at [facility] ENDOSCOPY PRO COLONOSCOPY, REMV LESN, SNARE N/A 02/22/2019 COLONOSCOPY, POLYPECTOMY, REMOVAL LESION BY SNARE (WRVU 4.67) performed by Dion Osullivan MD at [facility] ENDOSCOPY PRO COLONOSCOPY, REMV LESN, SNARE N/A 02/26/2021 COLONOSCOPY, POLYPECTOMY, REMOVAL LESION BY SNARE (WRVU 4.67) performed by Dion Osullivan MD at [facility] ENDOSCOPY PRO SIGMOIDOSCOPY, DIAGNOSTIC 03/16/2012 FLEXIBLE SIGMOIDOSCOPY performed by YUDI MALLOY at [facility] ENDOSCOPY PRO UPPER GI ENDOSCOPY, DIAGNOSTIC N/A 04/28/2019 EGD, UPPER GI ENDOSCOPY performed by Iza Coates MD at [facility] ENDOSCOPY UPPER GI ENDOSCOPY, EXAM 10/01/2012 UPPER GI ENDOSCOPY performed by Dion OSULLIVAN at [facility] ENDOSCOPY FAMILY HISTORY: No family [...] of Motion -limited Special tests - Neurologic: dairy helper - grossly intact Reflexes - 2+ and [...] the potential roles for physical therapy, the [facility] functional alevism program, and the [facility] active pain care service [facility]. He expressed interest in the above and wished to consider prior to enrolling. Ross may follow-up in 2 - 3 months or on an as needed basis Thank you for allowing us the opportunity to participate in Brian's care. I spent 45 minutes in direct [id number] time, with 40 minutes counseling him regarding treatment options and addressing specific questions. Thank you for referring him to our clinic. Trung Hoyos MD, MS Flat Sorter Processor of Anesthesiology [facility] [address] [address] / [facility] CC: Santiago Morales PA [facility] PAIN MANAGEMENT [place] [id number] documented in this encounter Plan of Treatment Upcoming Encounters Date Type Department Care Team (Late st Contact Info) Description 08/15/2024 9:00 AM EDT Office [place] [address] [facility] [place] [address] 09/01/2024 9:40 AM EDT Office Visit Cardiology at [address] [phone] [facility] [place] [address] 09/01/2024 11:20 AM EDT Office Visit Dermatology at [facility] [address] [place] [address] [facility] DR EDD[facility] [place] [address] 09/21/2024 2:45 PM EDT Office Visit [place] [address] [facility] [place] [address] Scheduled Referrals Name Type Priority Associated Diagnoses Orde r Schedule Referral to Pain and Spine Center (Internal only) Outpatient Referral Routine Spondylosis of cervical region without myelopathy or radiculopathy Ordered: 04/06/2024 documented as of this encounter Visit Diagnoses Diagnosis Radiculopathy of cervical region- Primary Brachial neuritis or radiculitis nos documented in this encounter Care Teams Light Technician Relationship Specialty Start Date End Date Deacon Watters, PIPELINE MAINTENANCE SUPERVISOR [address] [place] [address] PCP - General Family Medicine 02/17/22 documented as of this encounter
--- OUTSIDE RECORDS SUMMARY | 2024-07-15 13:36 | XMS_ITS | Encounter Summary ---
Author Organization [facility] Address [facility] [place] [address] Care Team Providers Care Relish Maker Name Role Phone DuongDeacon Priscilla LUCERO Primary Care Provider +1- [phone] Encounter Details Date Type Department Care Team [...] 9:00 AM EDT Office [place] [address] Dion Barlow MD [facility] [place] [address] 09/01/2024 9:40 AM EDT Office Visit Cardiology at [address] [phone] Franky Shaver MD [facility] [place] [address] 09/01/2024 11:20 AM EDT Office Visit Dermatology at [facility] [address] [place] [address] Gómez Mercer MD [facility] DR EDDIE [place] [address] 09/21/2024 2:45 PM EDT Office Visit Pain and Spine Center at [facility] [place] [address] Trung Hoyos MD [facility] [place] [address] documented as of this encounter Visit Diagnoses Not on filedocumented in this encounter Care Teams Relish Maker Relationship Specialty Start Date End Date Deacon Watters, JAZMINE [address] [place] [address] PCP - General Family Medicine 02/17/22 documented as of this encounter
--- OUTSIDE RECORDS SUMMARY | 2024-07-15 13:36 | XMS_ITS | Encounter Summary ---
Author Organization [facility] Address [facility] [place] [address] Care Team Providers Care Dining Room Coordinator Name Role Phone Deacon Watters APRN Primary Care Provider +1- [phone] Encounter Details Date Type Department Care Team (Late st Contact Info) Description 06/29/2024 [place] [phone] Ramakrishna Elliott MD [facility] [place] [address] Social History Tobacco Use Types Packs/Day Years [...] Date: 06/29/24 Referring Provider: William Patient Location: [facility] HPI: 74 yoM w/ PMHx of HTN, [...] as tolerated - TTE - plan for [facility] Recommendations: Above recommendations were based on my discussion with Dr. briscoe; I have not personally interviewed or examined this patient. Advised to call the transfer center back with any changes in the patient condition. Ramakrishna Elliott MD Shot Man documented in this encounter Plan of Treatment Upcoming Encounters Date Type Department Care Team (Late st Contact Info) Description 08/15/2024 9:00 AM EDT Office [place] [address] Dion Barlow MD [facility] [place] [address] 09/01/2024 9:40 AM EDT Office Visit Cardiology at [address] [place] [address] Franky Shaver MD [facility] [place] [address] 09/01/2024 11:20 AM EDT Office Visit Dermatology at [facility] [address] [place] [phone] Gómez Mercer MD [facility] [address] [place] [address] 09/21/2024 2:45 PM EDT Office Visit Pain and Spine Center at [facility] [address] Trung Hoyos MD [facility] [place] [place] [address] documented as of this encounter Visit Diagnoses Not on filedocumented in this encounter Care Teams Dining Room Coordinator Relationship Specialty Start Date End Date Deacon Watters, PLANT AND INSTRUMENT ENGINEER [address] [place] [address] PCP - General Family Medicine 02/17/22 documented as of this encounter
--- OUTSIDE RECORDS SUMMARY | 2024-07-15 13:36 | XMS_ITS | Encounter Summary ---
Author Organization [facility] [place] [address] Care Team Providers Care Acquisitions Librarian Name Role Phone Deacon Watters APRN Primary Care Provider +1- [phone] Encounter Details Date Type Department Care Team (Late st Contact Info) Description 06/29/2024 7:25 PM EDT Ancillary Procedure [place] [phone] Deacon Watters APRN [address] [place] [address] Social History Tobacco Use Types Packs/Day Years [...] 9:00 AM EDT Office Visit [place] [address] Dion Barlow MD [facility] [place] [address] 09/01/2024 9:40 AM EDT Office Visit Cardiology at [address] [place] [address] Franky Shaver MD [facility] [place] [address] 09/01/2024 11:20 AM EDT Office Visit Dermatology at [facility] [address] [place] [address] Gómez Mercer MD [facility] [place] [address] 09/21/2024 2:45 PM EDT Office Visit Pain and Spine Center at [facility] [place] [address] Trung Hoyos MD [facility] [place] [address] documented as of this encounter Procedures Procedure Name Priority Date/Time Associated Diagnosis Comments FILM LIBRARY STORAGE ONLY DX CHEST Routine 06/29/2024 7:22 PM EDT documented in this encounter Results * Film Library- Storage Only DX Chest (06/29/2024 7:22 PM EDT) Narrative [facility] - 06/29/2024 7:22 PM EDT This exam is auto-finalizing. It's purpose is for storage only. Deacon Watters APRN IMG FILM LIBRARY O RDERABLES [place], [place] documented in this encounter Visit Diagnoses Not on filedocumented in this encounter Care Teams Acquisitions Librarian Relationship Specialty Start Date End Date Deacon Watters APRN [address] [place] [address] PCP - General Family Medicine 02/17/22 documented as of this encounter
--- OUTSIDE RECORDS SUMMARY | 2024-07-15 13:36 | XMS_ITS | Encounter Summary ---
Author Organization [facility] Address [facility] [place] [address] Care Team Providers Care Secretary To Board Of Commissioners Name Role Phone Duong Deacon Wells APRN Primary Care Provider +1- [phone] Reason for Visit * Reason Comments Rash Encounter Details Date Type Department Care Team (Late st Contact Info) Description 06/07/2024 1:20 PM EDT Office Visit Dermatology at [facility] [address] [place] [address] Gómez Mercer MD [facility] [address] Tinea cruris Social History Tobacco Use Types [...] weeks for Tinea Cruris []Note routed to trade union secretary []Recall placed in scheduling system [x]Appointment scheduled at checkout Scribe attestation: Danyell Anton [facility] has performed the documentation for this encounter inthe presence of and acting as a scribe for Gómez Mercer MD. I performed the above scribed service and agree with the accuracy of the documentation in this encounter. Reviewed and signed by: Gómez Mercer MD Dermatology [facility] Patient seen and evaluated with staff apartment groundskeeper: Maria G Padilla MD Dermatology [facility] * Maria G Padilla MD - [...] as documented. Maria G Padilla MD Staff Fuel Storage Technician Department of Dermatology [facility] documented in this encounter Plan of Treatment Upcoming Encounters Date Type Department Care Team (Late st Contact Info) Description 08/15/2024 9:00 AM EDT Office Visit [place] [address] Dion Barlow MD [facility] [place] [address] 09/01/2024 9:40 AM EDT Office Visit Cardiology at [address] [phone] Franky Shaver MD [facility] [address] 09/01/2024 11:20 AM EDT Office Visit Dermatology at [facility] [address] [place] [address] Gómez Mercer MD [facility] [place] [address] 09/21/2024 2:45 PM EDT Office Visit [facility] [place] [address] Trung Hoyos MD [facility] [place] [place] [address] documented as of this encounter Visit Diagnoses Diagnosis Tinea cruris Dermatophytosis of groin and perianal area documented in this encounter Additional Health Concerns Infection Onset Date Last Indicated Resolved Time Rule Out C. difficile 06/07/2024 06/06/20242023 2:27 PM EDT documented as of this encounter Care Teams Secretary To Board Of Commissioners Relationship Specialty Start Date End Date Deacon Watters APRN [address] [place] [address] PCP - General Family Medicine 02/17/22 documented as of this encounter
--- OUTSIDE RECORDS SUMMARY | 2024-07-15 13:36 | XMS_ITS | Encounter Summary ---
Author Organization [facility] Lina [facility] [place] [address] Care Team Providers Care Harpoon Engagement Planning Operator Name Role Phone Deacon Watters APRN Primary Care Provider +1- [phone] Reason for Referral * Consultation (Routine) - Closed Specialty Diagnoses / Procedures Referred By Contac t Referred To Contact Pain and Spine Center Diagnoses Spondylosis of cervical region without myelopathy or radiculopathy Santiago Morales PA [facility] [place] [address] [facility] [place] [address] Referral ID Status Reason Start Date Expiration Date V isits Requested Visits Authorized [id number] Closed Pain Consult 04/06/2024 04/06/2025 1 1 Reason for Visit * Reason Comments Follow-up Pain Back of neck- right side of neck is worse Encounter Details Date Type Department Care Team (Latest Contact Info) Description 04/06/2024 8:30 AM EDT Office Visit [place] [address] Santiago Morales PA [facility] [place] [address] Spondylosis of cervical region without [...] the Center for [facility] @ [facility] for evaluation. Chief Complaint: Neck pain. Intermittent [...] strength though with slight weakness with left hardware installation coordinator compared to thatof the right. Imaging: No [...] 9:00 AM EDT Office [place] [address] Dion Barlow MD [facility] [place] [address] 09/01/2024 9:40 AM EDT Office Visit Cardiology at [address] [phone] Franky Shaver MD [facility] [place] [address] 09/01/2024 11:20 AM EDT Office Visit Dermatology at [facility] [address] [place] [address] Gómez Mercer MD [facility] DR [place] [address] 09/21/2024 2:45 PM EDT Office Visit [facility] [place] [address] Trung Hoyos MD [facility] [place] [address] Scheduled Referrals Name Type Priority Associated Diagnoses Orde r Schedule Referral to Pain and Spine Center (Internal only) Outpatient Referral Routine Spondylosis of cervical region without myelopathy or radiculopathy Ordered: 04/06/2024 documented as of this encounter Visit Diagnoses Diagnosis Spondylosis of cervical region without myelopathy or radiculopathy Cervical spondylosis without myelopathy documented in this encounter Care Teams Harpoon Engagement Planning Operator Relationship Specialty Start Date End Date Deacon Watters, DISTRICT CLAIMS MANAGER [address] [place] [address] PCP - General Family Medicine 02/17/22 documented as of this encounter
--- OUTSIDE RECORDS SUMMARY | 2024-07-15 13:36 | XMS_ITS | Encounter Summary ---
Author Organization [facility] Address [facility] [place] [address] Care Team Providers Care Food Truck Caterer Name Role Phone DuongDeacon Priscilla LUCERO Primary Care Provider +1- [phone] Encounter Details Date Type Department Care Team [...] 9:00 AM EDT Office Visit [place] [address] Dion Barlow MD [facility] [place] [address] 09/01/2024 9:40 AM EDT Office Visit Cardiology at [address] [phone] Franky Shaver MD [facility] [place] [address] 09/01/2024 11:20 AM EDT Office Visit Dermatology at [facility] [address] [place] [address] Gómez Mercer MD [facility] DR [place] [address] 09/21/2024 2:45 PM EDT Office Visit Pain and Spine Center at [facility] [place] [address] Trung Hoyos MD [facility] [place] [address] documented as of this encounter Visit Diagnoses Not on filedocumented in this encounter Care Teams Food Truck Caterer Relationship Specialty Start Date End Date Deacon Watters, JAZMINE [address] [facility] [place] [address] PCP - General Family Medicine 02/17/22 documented as of this encounter
--- OUTSIDE RECORDS SUMMARY | 2024-07-15 13:36 | XMS_ITS | Encounter Summary ---
Author Organization [facility] Address [facility] [place] [address] Care Team Providers Care Business Services Officer Name Role Phone Deacon Watters APRN Primary Care Provider [phone]- [phone] Reason for Referral * Consultation (Routine) - Authorized Specialty Diagnoses / Procedures Referred By Contac t Referred To Contact Cardiology Diagnoses NSTEMI (non-ST elevated myocardial infarction) Ronel Hensley MD [facility] [place] [address] [facility] Cardiology [address] [place] [phone] Referral ID Status Reason Start Date Expiration Date Visits Requested Visits Authorized [id number] Authorized Consult, Test & Treat 07/04/2024 07/04/2025 1 1 * Consultation (Routine) - Authorized Specialty Diagnoses / Procedures Referred By Contac t Referred To Contact Cardiology Diagnoses NSTEMI (non-ST elevated myocardial infarction) Armond Denny MD [facility] [place] [address] Cardiac Rehab, [facility] [address] [place] [address] [place] [address] Referral ID Status Reason Start Date Expiration Date Visits Requested Visits Authorized [id number] Authorized Consult, Test & Treat 07/04/2024 12/31/2024 36 36 Reason for Visit * Auth/Cert (Routine) Specialty Diagnoses / Procedures Referred By Contac t Referred To Contact Diagnoses NSTEMI (non-ST elevated myocardial infarction) NSTEMI Triston Godinez MD [facility] [place] [address] [facility] [[email or web address]] Referral ID Status Reason Start Date Expiration Date Visits Re quested Visits Authorized [id number] 1 1 Encounter Details Date Type Department Care Team (Latest Contact Info) Description 06/30/2024 3:44 PM EDT - 07/04/2024 3:25 PM EDT Hospital Encounter Heart and Vascular Unit Level 3 Wing B at [place] [phone] Triston Godinez MD [facility] [place] [address] Armond Denny MD [facility] [place] [address] NSTEMI (non-ST elevated myocardial infarction) (Primary Dx) Discharge Disposition: Home Social History Tobacco Use Types Packs/Day Years Used Date Smoking Tobacco: Former Cigarettes 4 30 1 12/01/1961 - 10/01/1992 Smokeless Tobacco: Former Chew Comments:Denies vaping Alcohol Use Standard Drinks/Week Comments Yes 0 (1 standard drink = 0.6 oz pur e alcohol) twice a year [facility] Utilities Answer Date Recorded In the past 12 months has [employer] electric, gas, oil, or water company threatened [...] any time in the past 12 m [facility], were you homeless or living in a half-way (including now)? No 07/01/2024 DH IPV Inpatient [...] HLD, migraines, DM2, and UC who [facility] and was transferred to [facility] for NSTEMI found to have HFrEF. Course [...] He was discharged with 6 days of [id number] mg BID after receiving 1 day of [...] Jardiance allergy. PCP Contact Information: Deacon Watters, REGULATORY COMPLIANCE DIRECTOR [address] / [facility] [id number] Discharge Diagnoses (Hospital Problems) and Secondary Diagnoses [...] #HTN #HLD Mr. Rodriguez was transferred to [facility] for NSTEMI with trops of 4143 and 20,000 at the OSH, where he was loaded with ASA, plavix and started on heparin gtt. At [facility], his trops trended down to 1234. In [...] dose. Would consider changes to his regimen shelter to reduce the A1c. #GERD He takes [...] to exclude urinary tract infection. Cardiac Catheterization: ([facility]) RIGHT dominance LVEDP 10 Artery Lesion [...] 9:00 AM Dion Osullivan MD Gastroenterology at [facility] Arrive at: Community Development Aide Area [phone] 09/01/2024 11:20 AM Gómez Mercer MD Dermatology at [facility] Arrive at: Community Development Aide 3 Isabel [phone] 09/21/2024 2:45 PM Trung Hoyos MD Pain and Spine Center at [facility] Arrive at: Community Development Aide Area [phone] Future Orders Complete By Expires Referral to Cardiac Rehab [[id number] Custom] As directed Process Instructions: If no progress note charted, please enter Clinical details in comments. Scheduling Instructions: Questions: My question or request is: NSTEMI, PCI, HFrEF- cardiac rehab at [facility] Referral to Cardiology [[id number] Custom] As [...] appointments: During 8am-5pm Thursday through Thursday call [phone] to speak with a nurse in the cardiology clinic All other times call [phone] and ask to speak to the tactical deception plans officer supply chain consultant. Home oxygen therapy: none Arrangements for VNA/home care: none Follow up Appointments: Future Appointments Date Time Provider Department Center 08/15/2024 9:00 AM Dion Osullivan MD [facility] 09/01/2024 11:20 AM Gómez Mercer MD [facility] 09/21/2024 2:45 PM Trung Hoyos MD [facility] Pain Sp [facility] Personal Lines Agent: [facility] - referral sent and they are aware you need an appointment. If they do not reach out to you with an appointment in 1 week, call and ask for the cardiology clinic. PCP: Deacon Watters APRN at [phone] on July 08 at 4 PM Your Inpatient Doctor(s) at [facility]: Armond Denny MD - Attending physician Your Primary Care Provider: Deacon Watters APRN [address] / [facility] [id number] If you have non-emergent questions between now and the time of your follow up appointments: During 8am-5pm Thursday through Thursday call [phone] to speak with a nurse in the cardiology clinic All other times call [phone] and ask to speak to the tactical deception plans officer supply chain consultant. Provider Contact Information: Deacon Watters APRN [address] / [facility] [address] Discharge References/Attachments: Discharge References/Attachments None For questions regarding this document or issues relating to this hospitalization on the Medical Service, please contact your inpatient physician through the [facility] Seo Manager . Issues afterhours and on weekends will be handled by the Personal Lines Agent staff on-call. Signed: Ronel Hensley MD Internal [...] appointments: During 8am-5pm Thursday through Thursday call [phone] to speak with a nurse in the cardiology clinic All other times call [phone] and ask to speak to the tactical deception plans officer supply chain consultant. Home oxygen therapy: none Arrangements for VNA/home care: none Follow up Appointments: Future Appointments Date Time Provider Department Center 08/15/2024 9:00 AM Dion Osullivan MD [facility] GASTRO [facility] 09/01/2024 11:20 AM Gómez Mercer MD [facility] 09/21/2024 2:45 PM Trung Hoyos MD [facility] Pain Sp [facility] Personal Lines Agent: [facility] - referral sent and they are aware you need an appointment. If they do not reach out to you with an appointment in 1 week, call and ask for the cardiology clinic. PCP: Deacon Watters APRN at [phone] on July 08 at 4 PM Your Inpatient Doctor(s) at [facility]: Armond Denny MD - Attending physician Your Primary Care Provider: Deacon Watters APRN [address] [facility] / [facility] [id number] If you have non-emergent questions between now and the time of your follow up appointments: During 8am-5pm Thursday through Thursday call [phone] to speak with a nurse in the cardiology clinic All other times call [phone] and ask to speak to the tactical deception plans officer supply chain consultant. documented in this encounter Medications at [...] migraines, DM2, and UC whowas transferred to [facility] for NSTEMI and now found to have [...] 3.66) performed by Dion Osullivan MD at [facility] ENDOSCOPY PRO COLONOSCOPY, BIOPSY N/A 02/22/2019 COLONOSCOPY FLEXIBLE, WITH BX (WRVU 3.66) performed by Dion Osullivan MD at [facility] ENDOSCOPY PRO COLONOSCOPY, BIOPSY N/A 03/28/2022 COLONOSCOPY FLEXIBLE, WITH BX (WRVU 3.66) performed by Mona Turner MD at [facility] ENDOSCOPY PRO COLONOSCOPY, BIOPSY N/A 01/20/2024 COLONOSCOPY FLEXIBLE, WITH BX (WRVU 3.56) performed by Anthony Hamlin MD at [facility] ENDOSCOPY PRO COLONOSCOPY, DIAGNOSTIC 11/27/2011 COLONOSCOPY, DIAGNOSTIC performed by Dion OSULLIVAN at [facility] ENDOSCOPY PRO COLONOSCOPY, DIAGNOSTIC 07/13/2014 COLONOSCOPY, DIAGNOSTIC performed by Dion Osullivan MD at [facility] ENDOSCOPY PRO COLONOSCOPY, REMV LESN, SNARE N/A 02/22/2019 COLONOSCOPY, POLYPECTOMY, REMOVAL LESION BY SNARE (WRVU 4.67) performed by Dion Osullivan MD at [facility] ENDOSCOPY PRO COLONOSCOPY, REMV LESN, SNARE N/A 02/26/2021 COLONOSCOPY, POLYPECTOMY, REMOVAL LESION BY SNARE (WRVU 4.67) performed by Dion Osullivan MD at [facility] ENDOSCOPY PRO SIGMOIDOSCOPY, DIAGNOSTIC 03/16/2012 FLEXIBLE SIGMOIDOSCOPY performed by YUDI MALLOY at [facility] ENDOSCOPY PRO UPPER GI ENDOSCOPY, DIAGNOSTIC N/A 04/28/2019 EGD, UPPER GI ENDOSCOPY performed by Iza Coates MD at [facility] ENDOSCOPY UPPER GI ENDOSCOPY, EXAM 10/01/2012 UPPER GI ENDOSCOPY performed by Dion OSULLIVAN at [facility] ENDOSCOPY Social History: Home set-up: Lives on the first floor of a two level home in [place], [place] Stairs: FOS with bilateral rails vs a few stairs through the back to the first level, 8 step between rooms Bathroom Set-up: Tub-shower with grab bars, no shower chair Baseline Mobility: Ambulates without an assistive device. Independent with I/ADLs, including driving. 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 He enjoys taking care of his property including [employer]. He sleeps in a flat bed. 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 [...] Moderate Complexity Evaluation Qing Braxton, PT Pager: [phone] Physical Therapy Inpatient Rehabilitation Department * Day, Tray Bassett OT - 07/04/2024 9:40 AM EDT Occupational Therapy Evaluation Patient profile: Brian Rodriguez is a 74 y.o. male admitted on 06/30/2024 with PMHx of HTN, HLD, migraines, DM2, and UC who was transferred to [facility] for NSTEMI and now found to have HFrEF. Pt now s/p PCIto LCX. Past Medical History: Diagnosis Date Asthma 10/01/2011 Diabetes mellitus 10/01/2011 GERD (gastroesophageal reflux disease) 10/01/2011 Hearing loss 10/01/2011 Hydrocele 10/01/2011 Ulcerative colitis 10/01/2011 Past Surgical History: Procedure Laterality Date PRO COLONOSCOPY, BIOPSY N/A 02/12/2017 COLONOSCOPY FLEXIBLE, WITH BX (WRVU 3.66) performed by Dion Osullivan MD at [facility] ENDOSCOPY PRO COLONOSCOPY, BIOPSY N/A 02/22/2019 COLONOSCOPY FLEXIBLE, WITH BX (WRVU 3.66) performed by Dion Osullivan MD at [facility] ENDOSCOPY PRO COLONOSCOPY, BIOPSY N/A 03/28/2022 COLONOSCOPY FLEXIBLE, WITH BX (WRVU 3.66) performed by Mona Turner MD at [facility] ENDOSCOPY PRO COLONOSCOPY, BIOPSY N/A 01/20/2024 COLONOSCOPY FLEXIBLE, WITH BX (WRVU 3.56) performed by Anthony Hamlin MD at [facility] ENDOSCOPY PRO COLONOSCOPY, DIAGNOSTIC 11/27/2011 COLONOSCOPY, DIAGNOSTIC performed by Dion OSULLIVAN at [facility] ENDOSCOPY PRO COLONOSCOPY, DIAGNOSTIC 07/13/2014 COLONOSCOPY, DIAGNOSTIC performed by Dion Osullivan MD at [facility] ENDOSCOPY PRO COLONOSCOPY, REMV LESN, SNARE N/A 02/22/2019 COLONOSCOPY, POLYPECTOMY, REMOVAL LESION BY SNARE (WRVU 4.67) performed by Dion Osullivan MD at [facility] ENDOSCOPY PRO COLONOSCOPY, REMV LESN, SNARE N/A 02/26/2021 COLONOSCOPY, POLYPECTOMY, REMOVAL LESION BY SNARE (WRVU 4.67) performed by Dion Osullivan MD at [facility] ENDOSCOPY PRO SIGMOIDOSCOPY, DIAGNOSTIC 03/16/2012 FLEXIBLE SIGMOIDOSCOPY performed by YUDI MALLOY at [facility] ENDOSCOPY PRO UPPER GI ENDOSCOPY, DIAGNOSTIC N/A 04/28/2019 EGD, UPPER GI ENDOSCOPY performed by Iza Coates MD at [facility] ENDOSCOPY UPPER GI ENDOSCOPY, EXAM 10/01/2012 UPPER GI ENDOSCOPY performed by Dion OSULLIVAN at [facility] ENDOSCOPY Social History: Home set-up: Lives on the first floor of a two level home in [place], [place] Stairs: FOS with bilateral rails vs a few stairs through the back to the first level, 8 step between rooms Bathroom Set-up: Tub-shower with grab bars, no shower chair Baseline Mobility: Ambulates without an assistive device. Independent with I/ADLs, including driving. 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 He enjoys taking care of his property including [employer]. He sleeps in a flat bed. 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 [...] and measurable assessment of functional outcome. Pager: [phone] Tray Bassett. WILLY LoganR/L Occupational Therapy Rehabilitation Department * Armond Denny MD - 07/03/2024 7:03 AM EDT Inpatient Cardiology Progress Note Patient Name: Brian Rodriguez Date of Admission: 06/30/2024 ( Hospital Day 3 days ) Service: S2 ID: Brian Rodriguez is a 74 y.o. male with PMHx of HTN, HLD, migraines, DM2, and UC who presented [facility] for chest pain and was transferred to [facility] for NSTEMI found to have HFrEF. Active [...] 1809 PROBNP 2,259* Trops: OSH 4143 >20,000>> [facility] 1234 and 1274 06/30 Telemetry: some PVCs [...] to exclude urinary tract infection. Cardiac Catheterization: ([facility]) RIGHT dominance LVEDP 10 Artery Lesion [...] DM2, and UC who was transferred to [facility] for NSTEMI and now found to have [...] 7.3. Will need outpatient follow up for shelter changes. - holding home glipizide and metformin [...] Katia Reid MD Internal Medicine PGY-3 Pager [phone], M1-S2 Service CARDIOLOGY STAFF NOTE I have personally interviewed and examined the patient and reviewed appropriate data, including labs, ECGs and other diagnostic studies. I agree with the principal findings documented above. The assessment and plan were formulated in discussion with me. Armond Denny MD, [facility] Staff Personal Lines Agent resolution specialist * Armond Denny MD - 07/02/2024 6:17 AM EDT Inpatient Cardiology Progress Note Patient Name: Brian Rodriguez Date of Admission: 06/30/2024 ( Hospital Day 2 days ) Service: S2 ID: Brian Rodriguez is a 74 y.o. male with PMHx of HTN, HLD, migraines, DM2, and UC who presented [facility] for chest pain and was transferred to [facility] for NSTEMI found to have HFrEF. Active [...] 1809 PROBNP 2,259* Trops: OSH 4143 >20,000>> [facility] 1234 and 1274 06/30 Telemetry: some PVCs [...] to exclude urinary tract infection. Cardiac Catheterization: ([facility]) RIGHT dominance LVEDP 10 Artery Lesion [...] DM2, and UC who was transferred to [facility] for NSTEMI and now found to have [...] 7.3. Will need outpatient follow up for shelter changes. - holding home glipizide and metformin [...] Ronel Hensley MD Internal Medicine PGY-1 Pager [phone], M1-S2 Service CARDIOLOGY STAFF NOTE I have personally interviewed and examined the patient and reviewed appropriate data, including labs, ECGs and other diagnostic studies. I agree with the principal findings documented above. The assessment and plan were formulated in discussion with me. Armond Denny MD, [facility] Staff Personal Lines Agent resolution specialist * Armond Denny MD - 07/01/2024 6:15 AM EDT Inpatient Cardiology Progress Note Patient Name: Brian Rodriguez Date of Admission: 06/30/2024 ( Hospital Day 1 day ) Service: S2 ID: Brian Rodriguez is a 74 y.o. male with PMHx of HTN, HLD, migraines, DM2, and UC who presented [facility] for chest pain and was transferred to [facility] for NSTEMI found to have HFrEF. Active Problems: Active Hospital Problems Diagnosis NSTEMI (non-ST elevated myocardial infarction) Resolved Hospital Problems No resolved problems to display. 24 hr events: Yesterday - transferred to [facility] for NSTEMI Overnight - no acute events [...] 1809 PROBNP 2,259* Trops: OSH 4143 >20,000>> [facility] 1234 and 1274 last night Telemetry: NSR [...] DM2, and UC who was transferred to [facility] for NSTEMI and now found to have [...] 7.3. Will need outpatient follow up for political consultant changes. - holding home glipizide and metformin [...] Ronel Hensley MD Internal Medicine PGY-1 Pager [phone], M1-S2 Service CARDIOLOGY STAFF NOTE I have personally interviewed and examined the patient and reviewed appropriate data, including labs, ECGs and other diagnostic studies. I agree with the principal findings documented above. The assessment and plan were formulated in discussion with me. Plan for cath today and introduction of full complement of medical therapies for ACS/HFrEF. Armond Denny MD, [facility] Staff Personal Lines Agent resolution specialist documented in this encounter H&P Notes * Lynette Díazsera Woodard, REGULATORY COMPLIANCE DIRECTOR - 07/01/2024 9:33 AM EDT Images from [...] PCP: Deacon Watters APRN PCP phone #: [phone] ID/Chief Complaint: Brian Rodriguez is a 74 y.o. male with PMHx of HTN, HLD, migraines, DM2, and UC who presented to [facility] for chest pain and was transferred to [facility] for NSTEMI. History of Present Illness: Brian [...] infarction) Ulcerative colitis Colonoscopy 04/08/10 (Dr. Gomes [facility]) - inflammation only within the rectum [...] ascending colon. Several HPs and one TA. [place] 03/2022 - [place] 1 limited to rectosigmoid, [...] in the last 7068 hours. Invalid input(s): [id number] Heme: No results for input(s): LDH, HAPTOGLOBIN, [...] DM2, and UC who was transferred to [facility] for NSTEMI. Given Brian's presentation and his [...] Admit to Cardiology, S2 Team Pager # [phone] #NSTEMI > trops elevated to 4143 and 20,000 at OSH - s/p ASA and Plavix load - heparin gtt - continue 81 mg ASA - continue 75 mg plavix - repeat EKG with posterior leads - restarted atorvastatin 80 mg - TTE pending - trending trops here - NPO at midnight for [facility] tomorrow #Migraines - holding propranolol for [...] Operative Note Patient Name: Brian Rodriguez : [id number] MR#: [id number] Case Date: 07/01/2024 Surgeon: Surgeons and Role: [...] 07/01/2024 12:11 PM EDT Brian completed a [place] Advanced directive and stated that if he [...] surrogate would be surrogate decision maker per [place] surrogate decision making law. (Only good for 180 days) Any patient receiving care in [place] must abide by [place] law. The hierarchy for surrogate decision making [...] (i) The agent with financial power of assistant prosecuting attorney or a conservator appointed in accordance [...] homeless or living in a half-way (including now)?: No In the past 12 [...] Current DME: none Home Address confirmed as: [address] [place] [id number] Social & Family Supports: All names listed below confirmed with patient as current and correct Extended Emergency Contact Information Primary Emergency Contact: Sabrina Eisenberg Address: [address] [place] [phone] [facility] Mobile Relation: Child Secondary Emergency Contact: Enrique [...] Yes ; Prescription Coverage: Yes Preferred Pharmacy: [id number] - [facility], [place] - [address] [facility] [address] [place] [address] Status: Patient is a : No Primary Care Provider confirmed: Deacon Watters, JAZMINE [phone] Potential Needs for Transition of Care: none [...] 9:00 AM EDT Office [place] [address] Dion Osullivan MD [facility] [place] [address] 09/01/2024 9:40 AM EDT Office Visit Cardiology at [address] [phone] Franky Shaver MD [facility] [place] [address] 09/01/2024 11:20 AM EDT Office Visit Dermatology at [place] [address] [place] [phone] Gómez Mercer MD [facility] [address] 09/21/2024 2:45 PM EDT Office Visit Pain [place] [phone] Trung Hoyos MD [facility] [place] [address] Scheduled Referrals Name Type Priority Associated Diagnoses [...] PM EDT URINALYSIS BEAKER MICROSCPIC REFLEX EXAM ([facility]) Routine 07/03/2024 3:02 PM EDT URINALYSIS [...] CARE TEST O CEE Performing Organization Address City/[facility]/ZIP Co de Phone Number [facility] [place] [address] * (ABNORMAL) POC, GLUCOSE (07/04/2024 11:55 AM EDT) Glucometer, POC 287(H) 65 - 199 mg/dL 07/04/2024 11:55 AM EDT [facility] Comment:Supplemental ranges: <140 mg/dL before meals <180 mg/dL all other times of the day. Blood CAPILLARY BLOOD / Unknown 07/04/2024 11:55 AM EDT 07/04/2024 11:55 AM EDT Armond Denny MD POINT OF CARE TEST O RDERAOMAR Performing Organization Address City/[facility]/ZIP Co de Phone Number [facility] [place] [address] * (ABNORMAL) POC, GLUCOSE (07/04/2024 11:18 AM EDT) Glucometer, POC 259(H) 65 - 199 mg/dL 07/04/2024 11:32 AM EDT [facility] Comment:Supplemental ranges: <140 mg/dL before meals <180 mg/dL all other times of the day. Blood CAPILLARY BLOOD / Unknown 07/04/2024 11:18 AM EDT 07/04/2024 11:32 AM EDT Armond Denny MD POINT OF CARE TEST O RDERABLES Performing Organization Address City/[facility]/ZIP Co de Phone Number [facility] [place] [address] * POC, GLUCOSE (07/04/2024 8:04 AM EDT) Glucometer, POC 111 65 - 199 mg/dL 07/04/2024 8:04 AM EDT [facility] Comment:Supplemental ranges: <140 mg/dL before meals <180 mg/dL all other times of the day. Blood CAPILLARY BLOOD / Unknown 07/04/2024 8:04 AM EDT 07/04/2024 8:04 AM EDT Armond Denny MD POINT OF CARE TEST O RDERABLES Performing Organization Address [facility] Co de Phone Number [facility] [place] [address] * Magnesium (07/04/2024 1:43 AM EDT) Magnesium 0.80 0.69 - 1.07 mMol/L 07/04/2024 2:23 AM EDT [facility] Blood VENOUS BLOOD SPECIMEN / Unknown IP Care Team Draw / Unknown 07/04/2024 1:43 AM EDT 07/04/2024 1:52 AM EDT Triston Godinez MD CHEMISTRY ORDERABLES Performing Organization Address City/[facility]/ZIP Co de Phone Number [facility] [place] [address] * (ABNORMAL) Basic Metabolic Panel (07/04/2024 1:43 AM EDT) Glucose 156 65 - 199 mg/dL 07/04/2024 2:23 AM [facility] Comment:Glucose Concentratio n >=200 mg/dL plus symptoms is consistent with Diabetes Mellitus. Blood Urea Nitrogen 12 10 - 20 mg/dL 07/04/2024 2:23 AM [facility] Creatinine 1.27 0.80 - 1.50 mg/dL 07/04/2024 2:23 AM [facility] Sodium 141 135 - 145 mMol/L 07/04/2024 2:23 AM [facility] Potassium 3.9 3.5 - 5.0 mMol/L 07/04/2024 2:23 AM [facility] Chloride 108(H) 98 - 107 mMol/L 07/04/2024 2:23 AM [facility] Carbon Dioxide 22 22 - 31 mMol/L 07/04/2024 2:23 AM [facility] Anion Gap 11 5 - 15 mMol/L 07/04/2024 2:23 AM [facility] Calcium 9.4 8.5 - 10.5 mg/dL 07/04/2024 2:23 AM [facility] Est Glomerular Filtration Rate - Male 59 mL/min/1. 73 m?? 07/04/2024 2:23 AM [facility] Comment: This patient's estimated GFR was [...] CHEMISTRY ORDERABLES [facility] [place] [address] * (ABNORMAL) CBC (with Diff) (07/04/2024 1:43 AM EDT) White Blood Cell 5.05 4.00 - 9.50 x10(3)/mc L 07/04/2024 2:00 AM EDT [facility] Red Blood Cell 3.11(L) 4.58 - 5.54 x10(6)/mc L 07/04/2024 2:00 AM EDT [facility] Hemoglobin 10.5(L) 13.7 - 16.5 g/dL 07/04/2024 2:00 AM EDT [facility] Hematocrit 31.5(L) 40.5 - 48.5 % 07/04/2024 2:00 AM EDT [facility] Mean Cell Volume 101.3(H) 82.9 - 93.1 fL 07/04/2024 2:00 AM EDT [facility] Mean Cell Hemoglobin 33.8(H) 27.5 - 32.1 pg 07/04/2024 2:00 AM EDT [facility] Mean Cell Hemoglobin Concentration 33.3 32.0 - 35.7 g/dL 07/04/2024 2:00 AM EDT [facility] Platelet 145 145 - 357 x10(3)/mc L 07/04/2024 2:00 AM EDT [facility] Mean Platelet Volume 11.5 7.6 - 12.9 fL 07/04/2024 2:00 AM EDT [facility] RDW Standard Deviation 48.2(H) 36.0 - 45.0 fL 07/04/2024 2:00 AM EDT [facility] RDW coefficient of variation 13.1 11.4 - 13.8 % 07/04/2024 [facility] NR[facility]% auto 0.0 % 07/04/2024 2:00 AM [facility] NRBC Absolute 0.00 0.00 - 0.00 x10(3)/mc L 07/04/2024 2:00 AM [facility] Neutrophil % 65.9 % 07/04/2024 2:00 AM [facility] Neutrophil Absolute 3.33 1.70 - 6.10 x10(3)/mc L 07/04/2024 2:00 AM [facility] Lymph % 20.8 % 07/04/2024 2:00 AM [facility] Lymph Absolute 1.05 0.90 - 3.20 x10(3)/mc L 07/04/2024 2:00 AM [facility] Monocyte % 9.3 % 07/04/2024 2:00 AM [facility] Monocyte Absolute 0.47 0.30 - 0.90 x10(3)/mc L 07/04/2024 2:00 AM [facility] Eos % 3.0 % 07/04/2024 2:00 AM [facility] Eos Absolute 0.15 0.00 - 0.40 x10(3)/mc L 07/04/2024 2:00 AM [facility] Basophil % 0.6 % 07/04/2024 2:00 AM [facility] Baso Absolute 0.03 0.00 - 0.10 x10(3)/mc L 07/04/2024 2:00 AM [facility] Immature Gran % 0.4 % 2:00 AM [facility] Immature Gran Absolute 0.02 0.00 - 0.04 x10(3)/mc L 07/04/2024 2:00 AM [facility] Blood VENOUS BLOOD SPECIMEN / Unknown IP Care Team Draw / Unknown 07/04/2024 1:43 AM EDT 07/04/2024 1:52 AM EDT Triston Godinez MD HEMATOLOGY ORDERABLE S Performing Organization Address [facility] Co de Phone Number [facility] [place] [address] * (ABNORMAL) POC, GLUCOSE (07/03/2024 8:02 PM EDT) Glucometer, POC 251(H) 65 - 199 mg/dL 07/03/2024 8:02 PM EDT [facility] Comment:Supplemental ranges: <140 mg/dL before meals <180 mg/dL all other times of the day. Blood CAPILLARY BLOOD / Unknown 07/03/2024 8:02 PM EDT 07/03/2024 8:02 PM EDT Armond Denny MD POINT OF CARE TEST O CEE Performing Organization Address [facility] Co de Phone Number [facility] [place] [address] * (ABNORMAL) POC, GLUCOSE (07/03/2024 4:47 PM EDT) Glucometer, POC 217(H) 65 - 199 mg/dL 07/03/2024 4:47 PM EDT [facility] Comment:Supplemental ranges: <140 mg/dL before meals <180 mg/dL all other times of the day. Blood CAPILLARY BLOOD / Unknown 07/03/2024 4:47 PM EDT 07/03/2024 4:47 PM EDT Armond Denny MD POINT OF CARE TEST O CEE Performing Organization Address [facility] Co de Phone Number [facility] [place] [address] * (ABNORMAL) Urine culture (07/03/2024 3:02 PM [...] ug/ml: Sensitive Armond Denny MD MICROBIOLOGY - [facility] AL ORDERABLES [facility] [place] [address] * (ABNORMAL) Urinalysis Microscopic Reflex to Culture [...] Denny MD URINE ORDERABLES Performing Organization Address City/[facility]/ZIP Co de Phone Number [facility] [place] [address] * Urinalysis Microscopic with Reflex to Culture (07/03/2024 3:02 PM EDT) Urine URINE SPECIMEN OBTAINED BY CLEAN CATCH PROCEDURE / Unknown Non Blood Collection / Unknown 07/03/2024 3:02 PM EDT 07/03/2024 3:13 PM EDT Armond Denny MD URINE ORDERABLES Performing Organization Address [facility]/ZIP Co de Phone Number [facility] [place] [address] * (ABNORMAL) Urinalysis with reflex Culture (07/03/2024 [...] EDT [facility] Specific [place] Urine Automated 1.024 1.005 - 1.030 07/03/2024 3:40 PM EDT [facility] Appearance, Urine Dipstick Cloudy(A) Clear [...] URINE ORDERABLES [facility] [place] [address] * POC, GLUCOSE (07/03/2024 11:21 AM EDT) [facility] Signature Glucometer, POC 177 65 - 199 mg/dL 07/03/2024 11:21 AM EDT [facility] Comment:Supplemental ranges: <140 mg/dL before meals <180 mg/dL all other times of the day. Blood CAPILLARY BLOOD / Unknown 07/03/2024 11:21 AM EDT 07/03/2024 11:21 AM EDT Armond Denny MD POINT OF CARE TEST O RDERABLES Performing Organization Address City/[facility]/ZIP Co de Phone Number [facility] [place] [address] * POC, GLUCOSE (07/03/2024 7:24 AM EDT) Glucometer, POC 124 65 - 199 mg/dL 07/03/2024 7:24 AM EDT [facility] Comment:Supplemental ranges: <140 mg/dL before meals <180 mg/dL all other times of the day. Blood CAPILLARY BLOOD / Unknown 07/03/2024 7:24 AM EDT 07/03/2024 7:24 AM EDT Armond Denny MD POINT OF CARE TEST O RDERABLES Performing Organization Address [facility]/ZIP Co de Phone Number [facility] [place] [address] * Magnesium (07/03/2024 4:02 AM EDT) Magnesium 0.86 0.69 - 1.07 mMol/L 07/03/2024 4:41 AM EDT [facility] Blood VENOUS BLOOD SPECIMEN / Unknown IP Care Team Draw / Unknown 07/03/2024 4:02 AM EDT 07/03/2024 4:07 AM EDT Triston Godinez MD CHEMISTRY ORDERABLES Performing Organization Address City/[facility]/ZIP Co de Phone Number [facility] [place] [address] * Basic Metabolic Panel (07/03/2024 4:02 AM EDT) Glucose 146 65 - 199 mg/dL 07/03/2024 4:41 AM [facility] Comment:Glucose Concentratio n >=200 mg/dL plus symptoms is consistent with Diabetes Mellitus. Blood Urea Nitrogen 15 10 - 20 mg/dL 07/03/2024 4:41 AM [facility] Creatinine 1.25 0.80 - 1.50 mg/dL 07/03/2024 4:41 AM [facility] Sodium 138 135 - 145 mMol/L 07/03/2024 4:41 AM [facility] Potassium 3.6 3.5 - 5.0 mMol/L 07/03/2024 4:41 AM [facility] Chloride 105 98 - 107 mMol/L 07/03/2024 4:41 AM [facility] Carbon Dioxide 22 22 - 31 mMol/L 07/03/2024 4:41 AM [facility] Anion Gap 11 5 - 15 mMol/L 07/03/2024 4:41 AM [facility] Calcium 9.2 8.5 - 10.5 mg/dL 07/03/2024 4:41 AM [facility] Est Glomerular Filtration Rate - Male 60 mL/min/1. 73 m?? 07/03/2024 4:41 AM [facility] Comment: This patient's estimated GFR was [...] CHEMISTRY ORDERABLES [facility] [place] [address] * (ABNORMAL) CBC (with Diff) (07/03/2024 4:02 AM EDT) White Blood Cell 5.90 4.00 - 9.50 x10(3)/mc L 07/03/2024 4:13 AM EDT [facility] Red Blood Cell 3.27(L) 4.58 - 5.54 x10(6)/mc L 07/03/2024 4:13 AM EDT [facility] Hemoglobin 11.0(L) 13.7 - 16.5 g/dL 07/03/2024 4:13 AM [facility] Hematocrit 33.1(L) 40.5 - 48.5 % 07/03/2024 4:13 AM EDT [facility] Mean Cell Volume 101.2(H) 82.9 - 93.1 fL 07/03/2024 4:13 AM [facility] Mean Cell Hemoglobin 33.6(H) 27.5 - 32.1 pg 07/03/2024 4:13 AM [facility] Mean Cell Hemoglobin Concentration 33.2 32.0 - 35.7 g/dL 07/03/2024 4:[facility] Platelet 156 145 - 357 x10(3)/mc L 07/03/2024 4:13 AM EDT [facility] Mean Platelet Volume 11.3 7.6 - 12.9 fL 07/03/2024 4:13 AM [facility] RDW Standard Deviation 47.5(H) 36.0 - 45.0 fL 07/03/2024 4:13 AM [facility] RDW coefficient of variation 12.7 11.4 - 13.8 % 07/03/2024 4:13 AM [facility] NRBC% auto 0.0 % 07/03/2024 4:13 AM [facility] NRBC Absolute 0.00 0.00 - 0.00 x10(3)/mc L 07/03/2024 4:13 AM [facility] Neutrophil % 70.0 % 07/03/2024 4:13 AM [facility] Neutrophil Absolute 4.13 1.70 - 6.10 x10(3)/mc L 07/03/2024 4:13 AM [facility] Lymph % 18.3 % 07/03/2024 4:13 AM [facility] Lymph Absolute 1.08 0.90 - 3.20 x10(3)/mc L 07/03/2024 4:13 AM [facility] Monocyte % 8.5 % 07/03/2024 4:13 AM [facility] Monocyte Absolute 0.50 0.30 - 0.90 x10(3)/mc L 07/03/2024 4:13 AM [facility] Eos % 2.4 % 07/03/2024 4:13 AM [facility] Eos Absolute 0.14 0.00 - 0.40 x10(3)/mc L 07/03/2024 4:13 AM [facility] Basophil % 0.5 % 07/03/2024 4:13 AM [facility] Baso Absolute 0.03 0.00 - 0.10 x10(3)/mc L 07/03/2024 4:13 AM [facility] Immature Gran % 0.3 % 4:13 AM [facility] Immature Gran Absolute 0.02 0.00 - 0.04 x10(3)/mc L 07/03/2024 4:13 AM [facility] Blood VENOUS BLOOD SPECIMEN / Unknown IP Care Team Draw / Unknown 07/03/2024 4:02 AM EDT 07/03/2024 4:07 AM EDT Triston Godinez MD HEMATOLOGY ORDERABLE S [facility] [place] [address] * (ABNORMAL) POC, GLUCOSE (07/02/2024 8:45 PM EDT) Glucometer, POC 271(H) 65 - 199 mg/dL 07/02/2024 8:46 PM EDT [facility] Comment:Supplemental ranges: <140 mg/dL before meals <180 mg/dL all other times of the day. Blood CAPILLARY BLOOD / Unknown 07/02/2024 8:45 PM EDT 07/02/2024 8:46 PM EDT Armond Denny MD POINT OF CARE TEST O RDERABLES Performing Organization Address City/[facility]/ZIP Co de Phone Number [facility] [place] [address] * (ABNORMAL) POC, GLUCOSE (07/02/2024 4:18 PM EDT) Glucometer, POC 213(H) 65 - 199 mg/dL 07/02/2024 4:19 PM EDT [facility] Comment:Supplemental ranges: <140 mg/dL before meals <180 mg/dL all other times of the day. Blood CAPILLARY BLOOD / Unknown 07/02/2024 4:18 PM EDT 07/02/2024 4:19 PM EDT Armond Denny MD POINT OF CARE TEST O RDERAOMAR [facility] [place] [address] * (ABNORMAL) POC, GLUCOSE (07/02/2024 11:21 AM EDT) Glucometer, POC 234(H) 65 - 199 mg/dL 07/02/2024 11:21 AM EDT [facility] Comment:Supplemental ranges: <140 mg/dL before meals <180 mg/dL all other times of the day. Blood CAPILLARY BLOOD / Unknown 07/02/2024 11:21 AM EDT 07/02/2024 11:21 AM EDT Armond Denny MD POINT OF CARE TEST O RDERABLES Performing Organization Address City/[facility]/ZIP Co de Phone Number [facility] [place] [address] * POC, GLUCOSE (07/02/2024 7:28 AM EDT) Glucometer, POC 171 65 - 199 mg/dL 07/02/2024 7:28 AM EDT [facility] Comment:Supplemental ranges: <140 mg/dL before meals <180 mg/dL all other times of the day. Blood CAPILLARY BLOOD / Unknown 07/02/2024 7:28 AM EDT 07/02/2024 7:28 AM EDT Armond Denny MD POINT OF CARE TEST O RDERABLES Performing Organization Address [facility]/ZIP Co de Phone Number [facility] [place] [address] * Magnesium (07/02/2024 7:12 AM EDT) Magnesium 0.89 0.69 - 1.07 mMol/L 07/02/2024 8:09 AM EDT [facility] Blood VENOUS BLOOD SPECIMEN / Unknown IP Care Team Draw / Unknown 07/02/2024 7:12 AM EDT 07/02/2024 7:19 AM EDT Triston Godinez MD CHEMISTRY ORDERABLES Performing Organization Address City/[facility]/ZIP Co de Phone Number [facility] [place] [address] * Basic Metabolic Panel (07/02/2024 7:12 AM EDT) Glucose 161 65 - 199 mg/dL 07/02/2024 8:09 AM [facility] Comment:Glucose Concentratio n >=200 mg/dL plus symptoms is consistent with Diabetes Mellitus. Blood Urea Nitrogen 13 10 - 20 mg/dL 07/02/2024 8:09 AM [facility] Creatinine 1.18 0.80 - 1.50 mg/dL 07/02/2024 8:09 AM [facility] Sodium 136 135 - 145 mMol/L 07/02/2024 8:09 AM [facility] Potassium 3.6 3.5 - 5.0 mMol/L 07/02/2024 8:09 AM [facility] Chloride 104 98 - 107 mMol/L 07/02/2024 8:09 AM [facility] Carbon Dioxide 24 22 - 31 mMol/L 07/02/2024 8:09 AM [facility] Anion Gap 8 5 - 15 mMol/L 07/02/2024 8:09 AM [facility] Calcium 8.8 8.5 - 10.5 mg/dL 07/02/2024 8:09 AM [facility] Est Glomerular Filtration Rate - Male 64 mL/min/1. 73 m?? 07/02/2024 8:09 AM [facility] Comment: This patient's estimated GFR was [...] CHEMISTRY ORDERABLES [facility] [place] [address] * (ABNORMAL) CBC (with Diff) (07/02/2024 7:12 AM EDT) White Blood Cell 5.99 4.00 - 9.50 x10(3)/mc L 07/02/2024 7:41 AM EDT [facility] Red Blood Cell 3.36(L) 4.58 - 5.54 x10(6)/mc L 07/02/2024 7:41 AM EDT [facility] Hemoglobin 11.3(L) 13.7 - 16.5 g/dL 07/02/2024 7:41 AM [facility] Hematocrit 34.3(L) 40.5 - 48.5 % 07/02/2024 7:41 AM EDT [facility] Mean Cell Volume 102.1(H) 82.9 - 93.1 fL 07/02/2024 7:41 AM [facility] Mean Cell Hemoglobin 33.6(H) 27.5 - 32.1 pg 07/02/2024 7:41 AM [facility] Mean Cell Hemoglobin Concentration 32.9 32.0 - 35.7 g/dL 07/02/2024 7:41 [facility] Platelet 155 145 - 357 x10(3)/mc L 07/02/2024 7:41 AM [facility] Mean Platelet Volume 11.3 7.6 - 12.9 fL 07/02/2024 7:41 AM [facility] RDW Standard Deviation 48.2(H) 36.0 - 45.0 fL 07/02/2024 7:41 AM [facility] RDW coefficient of variation 12.9 11.4 - 13.8 % 07/02/2024 7:41 AM [facility] NRBC% auto 0.0 % 07/02/2024 7:41 AM [facility] NRBC Absolute 0.00 0.00 - 0.00 x10(3)/mc L 07/02/2024 7:41 AM [facility] Neutrophil % 75.2 % 07/02/2024 7:41 AM [facility] Neutrophil Absolute 4.50 1.70 - 6.10 x10(3)/mc L 07/02/2024 7:41 AM [facility] Lymph % 14.0 % 07/02/2024 7:41 AM [facility] Lymph Absolute 0.84(L) 0.90 - 3.20 x10(3)/mc L 07/02/2024 7:41 AM [facility] Monocyte % 8.7 % 07/02/2024 7:41 AM [facility] Monocyte Absolute 0.52 0.30 - 0.90 x10(3)/mc L 07/02/2024 7:41 AM [facility] Eos % 1.3 % 07/02/2024 7:41 AM [facility] Eos Absolute 0.08 0.00 - 0.40 x10(3)/mc L 07/02/2024 7:41 AM [facility] Basophil % 0.5 % 07/02/2024 7:41 AM [facility] Baso Absolute 0.03 0.00 - 0.10 x10(3)/mc L 07/02/2024 7:41 AM [facility] Immature Gran % 0.3 % 7:41 AM [facility] Immature Gran Absolute 0.02 0.00 - 0.04 x10(3)/mc L 07/02/2024 7:41 AM [facility] Blood VENOUS BLOOD SPECIMEN / Unknown IP Care Team Draw / Unknown 07/02/2024 7:12 AM EDT 07/02/2024 7:19 AM EDT Triston Godinez MD HEMATOLOGY ORDERABLE S [facility] [place] [address] * CT Abdomen & Pelvis w Contrast (07/02/2024 3:13 AM EDT) WORKSTATION ID [id number] RAD Anatomical Region Laterality Modality Abdomen, Pelvis [...] who have questions please contact the health healthcare financial analyst that requested your imaging first. ? Narrative [...] patients who have questions please contactthe health healthcare financial analyst that requested your imaging first. Triston Godinez [...] CARE TEST O CEE Performing Organization Address City/[facility]/ZIP Co de Phone Number [facility] [place] [address] * POC, GLUCOSE (07/01/2024 6:41 PM EDT) Glucometer, POC 91 65 - 199 mg/dL 07/01/2024 6:41 PM EDT [facility] Comment:Supplemental ranges: <140 mg/dL before meals <180 mg/dL all other times of the day. Blood CAPILLARY BLOOD / Unknown 07/01/2024 6:41 PM EDT 07/01/2024 6:41 PM EDT Armond Denny MD POINT OF CARE TEST O CEE Performing Organization Address [facility] Co de Phone Number [facility] [place] [address] * EKG 12 Lead (07/01/2024 5:24 PM EDT) Ventricular rate 77 BPM MUSE SYSTEM Atrial Rate 77 BPM MUSE SYSTEM P-R Interval 178 ms MUSE SYSTEM QRS Duration 138 ms MUSE SYSTEM Q-T Interval 418 ms MUSE SYSTEM QTC Calculated (Bezet) 473 ms MUSE SYSTEM Calculated P [place] 63 degrees MUSE SYSTEM Calculated R [place] 87 degrees MUSE SYSTEM Calculated T [place] 8 degrees MUSE SYSTEM INTERPRETATION Normal sinus [...] Modality Other Narrative 07/01/2024 7:47 PM EDT ?[facility] ? Cardiac Catheterization/Intervention Report ? Patient Name: Rodriguez, Brian Joya. ? Procedure Date: 07/01/2024 ? A #: [id number] ? Primary Physician: Lizzette Hayden ? Case #: [id number] ? File Name: [id number] ? Catheterization Order Number: [id number] ? [facility] ? Final Report [place], [place] ? Patient Name: ? Brian M. Rodriguez ?ID#: ?[id number] ? : ?[id number] ? Procedure Date: ? July 01, 2024 ? Case #: ? [id number] ? Room: ? 5 ? Case Physician: [...] procedure was Urgent. The indication for ?the labor relations officer visit is ACS less than or equal [...] ? A premounted 2.75 x 22 mm [place] Otero (EILEEN) was deployed ? with a maximum [...] dose administered prior to arrival in the labor relations officer. ?Recommended anti-platelet/anti-thrombotic regimen: ?Continue aspirin 81 mg daily. ?Continue clopidogrel 75 mg daily. ?These recommendations are made at the time of the intervention. Patient ?and provider preferences or a changing clinical situation may require ?modification of this regimen. Consult [facility] for ?questions. ?This patient has [...] against any medical treatment. Consult ?http://tools.acc.org/DAPTriskapp/#!/content/calculator/ or [facility] ?Interventional Cardiology for questions ? Conclusions: ?* [...] Procedure Note Lizzette Hayden MD - 07/14/2024 [facility] Cardiac Catheterization/Intervention Report Patient Name: Rodriguez, Brian M. Procedure Date: 07/01/2024 A #: [id number] Primary Physician: Lizzette Hayden Case #: [id number] File Name: [id number] Catheterization Order Number: [id number] [facility] FinalReport [place], [place] Patient Name: Brian Rodriguez ID#:[id number] :1950 Procedure Date: July 01, 2024 Case [...] patient was designated as ASA Class III. TheHA clinical frailty scale is 4: Vulnerable. Diagnostic Tests: Medications Prior to Procedure: Aspirin, Angiotensin II Receptor Leo and Statin. Indications for Diagnostic Cath: The priority of the diagnostic procedure was Urgent. The indicationfor the labor relations officer visit is ACS less than or equal [...] time was 37.0 minutes, dose area product xly735.00 Gy/cm2 and air kerma was 1,874 mGY. [...] The priority for the procedure was Urgent.The [facility] indication for the procedure was NSTE-ACS. Syntax [...] The lesion was predilated with a 2.50mm [id number] MM balloon with a maximum inflation pressure of 14atmospheres. A premounted 2.75 x 22 mm [place] Otero (EILEEN) wasdeployed with a maximum inflation pressure [...] dose administered prior to arrival in the labor relations officer. Recommended anti-platelet/anti-thrombotic regimen: Continue aspirin 81 mg daily. Continue clopidogrel 75 mg daily. These recommendations are made at the time of the intervention.Patient and provider preferences or a changing clinical situation mayrequire modification of this regimen. Consult [facility]iologyfor questions. This patient has a [...] or against any medical treatment.Consult http://tools.acc.org/DAPTriskapp/#!/content/calculator/ or [facility] [place] [facility] for questions Conclusions: * One [...] O RDERABLES [facility] [place] [address] * (ABNORMAL) Hemogram (07/01/2024 10:32 AM EDT) White Blood Cell 7.02 4.00 - 9.50 x10(3)/mc L 07/01/2024 11:20 AM EDT [facility] Red Blood Cell 3.68(L) 4.58 - 5.54 x10(6)/mc L 07/01/2024 11:20 AM EDT [facility] Hemoglobin 12.2(L) 13.7 - 16.5 g/dL 07/01/2024 11:20 AM [facility] Hematocrit 36.5(L) 40.5 - 48.5 % 07/01/2024 11:20 AM [facility] Mean Cell Volume 99.2(H) 82.9 - 93.1 fL 07/01/2024 11:20 AM [facility] Mean Cell Hemoglobin 33.2(H) 27.5 - 32.1 pg 07/01/2024 11:20 AM [facility] Mean Cell Hemoglobin Concentration 33.4 32.0 - 35.7 g/dL 07/01/2024 11:20 AM [facility] Platelet 167 145 - 357 x10(3)/mc L 07/01/2024 11:20 AM [facility] Mean Platelet Volume 11.4 7.6 - 12.9 fL 07/01/2024 11:20 AM [facility] RDW Standard Deviation 46.5(H) 36.0 - 45.0 fL 07/01/2024 11:20 AM [facility] RDW coefficient of variation 12.9 11.4 - 13.8 % 07/01/2024 11:20 AM [facility] NRBC% auto 0.0 % 07/01/2024 11:20 AM [facility] NRBC Absolute 0.00 0.00 - 0.00 x10(3)/mc L 07/01/2024 11:20 AM [facility] Blood VENOUS BLOOD SPECIMEN / Unknown IP Care Team Draw / Unknown 07/01/2024 10:32 AM EDT 07/01/2024 10:54 AM EDT Armond Denny MD HEMATOLOGY ORDERABLE S [facility] [place] [address] * Heparin (unfractionated) Level (07/01/2024 10:32 AM [...] MD HEMATOLOGY ORDERABLE S Performing Organization Address [facility] Co de Phone Number [facility] [place] [address] * POC, GLUCOSE (07/01/2024 7:18 AM EDT) [facility] Signature Glucometer, POC 105 65 - 199 mg/dL 07/01/2024 7:19 AM EDT [facility] Comment:Supplemental ranges: <140 mg/dL before meals <180 mg/dL all other times of the day. Blood CAPILLARY BLOOD / Unknown 07/01/2024 7:18 AM EDT 07/01/2024 7:19 AM EDT Triston Godinez MD POINT OF CARE TEST O RDERABLES Performing Organization Address [facility] Co de Phone Number [facility] [place] [address] * Heparin (unfractionated) Level (07/01/2024 3:15 AM EDT) Pathologist [facility] UF Heparin 0.36 IU/mL 07/01/2024 4:23 AM [...] ORDERABLE S [facility] [place] [address] * (ABNORMAL) CBC (with Diff) (07/01/2024 3:15 AM EDT) Pathologist [facility] White Blood Cell 5.82 4.00 - 9.50 x10(3)/mc L 07/01/2024 3:54 AM EDT [facility] Red Blood Cell 3.60(L) 4.58 - 5.54 x10(6)/mc L 07/01/2024 3:54 AM EDT [facility] Hemoglobin 11.9(L) 13.7 - 16.5 g/dL 07/01/2024 3:54 AM [facility] Hematocrit 35.6(L) 40.5 - 48.5 % 07/01/2024 3:54 AM [facility] Mean Cell Volume 98.9(H) 82.9 - 93.1 fL 07/01/2024 3:54 AM [facility] Mean Cell Hemoglobin 33.1(H) 27.5 - 32.1 pg 07/01/2024 3:54 AM [facility] Mean Cell Hemoglobin Concentration 33.4 32.0 - 35.7 g/dL 07/01/2024 3:54 AM [facility] Platelet 169 145 - 357 x10(3)/mc L 07/01/2024 3:54 AM [facility] Mean Platelet Volume 11.6 7.6 - 12.9 fL 07/01/2024 3:54 AM [facility] RDW Standard Deviation 46.3(H) 36.0 - 45.0 fL 07/01/2024 3:54 AM [facility] RDW coefficient of variation 12.8 11.4 - 13.8 % 07/01/2024 3:54 AM [facility] NRBC% auto 0.0 % 07/01/2024 3:54 AM [facility] NRBC Absolute 0.00 0.00 - 0.00 x10(3)/mc L 07/01/2024 3:54 AM [facility] Neutrophil % 66.6 % 07/01/2024 3:54 AM [facility] Neutrophil Absolute 3.87 1.70 - 6.10 x10(3)/mc L 07/01/2024 3:54 AM [facility] Lymph % 20.4 % 07/01/2024 3:54 AM [facility] Lymph Absolute 1.19 0.90 - 3.20 x10(3)/mc L 07/01/2024 3:54 AM [facility] Monocyte % 9.6 % 07/01/2024 3:54 [...] ORDERABLE S [facility] [place] [address] * Magnesium (06/30/2024 11:25 PM EDT) Magnesium 0.84 0.69 - 1.07 mMol/L 07/01/2024 12:14 AM EDT [facility] Blood VENOUS BLOOD SPECIMEN / Unknown IP Care Team Draw / Unknown 06/30/2024 11:25 PM EDT 06/30/2024 11:47 PM EDT Triston Godinez MD CHEMISTRY ORDERABLES [facility] [place] [address] * (ABNORMAL) Basic Metabolic Panel (06/30/2024 11:25 PM EDT) Glucose 145 65 - 199 mg/dL 07/01/2024 12:14 AM [facility] Comment:Glucose Concentratio n >=200 mg/dL plus symptoms is consistent with Diabetes Mellitus. Blood Urea Nitrogen 10 10 - 20 mg/dL 07/01/2024 12:14 AM [facility] Creatinine 1.02 0.80 - 1.50 mg/dL 07/01/2024 12:14 AM [facility] Sodium 141 135 - 145 mMol/L 07/01/2024 12:14 AM [facility] Potassium 3.4(L) 3.5 - 5.0 mMol/L 07/01/2024 12:14 AM [facility] Chloride 106 98 - 107 mMol/L 07/01/2024 12:14 AM [facility] Carbon Dioxide 25 22 - 31 mMol/L 07/01/2024 12:14 AM [facility] Anion Gap 10 5 - 15 mMol/L 07/01/2024 12:14 AM [facility] Calcium 9.2 8.5 - 10.5 mg/dL 07/01/2024 12:14 AM [facility] Est Glomerular Filtration Rate - Male 76 mL/min/1. 73 m?? 07/01/2024 12:14 AM [facility] Comment: This patient's estimated GFR was [...] CHEMISTRY ORDERABLES [facility] [place] [address] * (ABNORMAL) Troponin-T, Yuriy Sensitivity 3 Hour (06/30/2024 11:25 PM EDT) Pathologist [facility] Troponin-T, High Sensitivity 1,274(H) <=22 ng/L 07/01/2024 [...] troponin value can be found in the [facility] Laboratory Test Catalog Troponin - https://[facility]-.testcatalog.org/catalogs/565/files/57784 Reference: Fourth Mcalpin Definition of Myocardial Infarction. Journal of the [place] [employer] 2018;72:9280-8653 Troponin-T, HS 3 hr delta 65 ng/L [...] CHEMISTRY ORDERABLES [facility] [place] [address] * (ABNORMAL) Troponin-T, High Sensitivity 1 Hour (06/30/2024 8:22 PM EDT) [facility] Troponin-T, High Sensitivity 1,234(H) <=22 ng/L [...] troponin value can be found in the [facility] Laboratory Test Catalog Troponin - https://[email or web address]-.testcatalog.org/catalogs/565/files/38643 Reference: Fourth [place] Definition of Myocardial Infarction. Journal of the [place] College [employer]iology 2018;72:1791-5916 Troponin-T, HS 1 hr delta 06/30/2024 9:22 PM EDT [facility] Comment:Delta troponin value not calculated, sample collected outside of delta calculation time limit. Blood VENOUS BLOOD SPECIMEN / Unknown Venipuncture / Unknown 06/30/2024 8:22 PM EDT 06/30/2024 8:40 PM EDT Triston Gdoinez MD CHEMISTRY ORDERABLES Performing Organization Address [facility]/ZIP Co de Phone Number [facility] [place] [address] * POC, GLUCOSE (06/30/2024 7:56 PM EDT) Glucometer, POC 144 65 - 199 mg/dL 06/30/2024 7:57 PM EDT [facility] Comment:Supplemental ranges: <140 mg/dL before meals <180 mg/dL all other times of the day. Blood CAPILLARY BLOOD / Unknown 06/30/2024 7:56 PM EDT 06/30/2024 7:57 PM EDT Triston Godinez MD POINT OF CARE TEST O RDERABLES Performing Organization Address [facility]/ZIP Co de Phone Number [facility] [place] [address] * XR Abdomen Flat & Upright (06/30/2024 6:56 PM EDT) WORKSTATION ID [id number] RAD Anatomical Region Laterality Modality Abdomen N/A Digital Radiogra phy Impressions 06/30/2024 9:12 PM EDT No obstruction or perforation. Thank you for letting us participate in the care of this patient. ??If you are a health care provider and have any questions regarding this report, please contact the number below. ??For patients who have questions please contact the health healthcare financial analyst that requested your imaging first. ? Electronically signed by: Shireen Hurtado MD, [facility] ([phone]), at 06/30/2024 9:12 PM Narrative 06/30/2024 9:12 [...] patients who have questions please contactthe health healthcare financial analyst that requested your imaging first. Electronically signed by: Shireen Hurtado MD, [facility]([phone]), at 06/30/2024 9:12 PM Triston Godinez MD IMG DX ORDERABLES * (ABNORMAL) Troponin-T, High Sensitivity (06/30/2024 6:09 PM EDT) [facility] Troponin-T, High Sensitivity Initial 1,209([facility] ) <=22 ng/L 06/30/2024 7:23 PM EDT [...] troponin value can be found in the [facility] Laboratory Test Catalog Troponin - https://one-.testcatalog.org/catalogs/565/files/53858 Reference: Fourth Mcalpin Definition of Myocardial Infarction. Journal of the [place] College [employer] Cardiology 2018;72:6339-7735 Blood VENOUS BLOOD SPECIMEN / Unknown Venipuncture / Unknown 06/30/2024 6:09 PM EDT 06/30/2024 6:18 PM EDT Triston Godinez MD CHEMISTRY ORDERABLES [facility] [place] [address] * (ABNORMAL) Basic Metabolic Panel (06/30/2024 6:09 PM EDT) Glucose 06/30/2024 8:08 PM EDT [facility] Comment:Insufficient sample. Informed Alli Meyers at 20:07, 06.30.2024. Blood Urea Nitrogen 10 10 - 20 mg/dL 06/30/2024 8:08 PM EDT [facility] Creatinine 0.98 0.80 - 1.50 mg/dL 06/30/2024 8:08 PM EDT [facility] Sodium 140 135 - 145 mMol/L 06/30/2024 8:[facility] Potassium 4.2 3.5 - 5.0 mMol/L 06/30/2024 8:08 PM [facility] Chloride 105 98 - 107 mMol/L 06/30/2024 8:08 PM [facility] Carbon Dioxide 21(L) 22 - 31 mMol/L 06/30/2024 8:08 PM EDT [facility] Anion Gap 14 5 - 15 mMol/L 06/30/2024 8:08 PM [facility] Calcium 06/30/2024 8:08 PM [facility] Comment:Insufficient sample. Informed Alli Vanasse at 20:07, 06.30.2024. Est Glomerular Filtration Rate [...] CHEMISTRY ORDERABLES [facility] [place] [address] * Lipid Panel (Reflex Direct LDL) (06/30/2024 [...] mg/dL HDL Cholesterol 36 mg/dL 6:51 PM [facility] Comment:Males: High Risk: <4 0 mg/dL LDL Cholesterol 120 mg/dL 6:51 PM [facility] Comment: Desirable: <100 mg/dL Above Desirable: 100-129 mg/dL Borderline High: 130-159 mg/dL High: 160-189 mg/dL Very High: > or =190 mg/dL Note: LDL calculation updated to the NIH LDL formula as of 06/26/2024 Non-HDL Cholesterol 161 mg/dL 06/30/2024 6:51 PM [facility] Comment: Desirable: <130 mg/dL Above Desirable: 130-159 mg/dL Borderline High: 160-189 mg/dL High: 190-219 mg/dL Very High: > or = 220 mg/dL Blood VENOUS BLOOD SPECIMEN / Unknown Venipuncture / Unknown 06/30/2024 6:09 PM EDT 06/30/2024 6:18 PM EDT [facility] - 06/30/2024 6:51 PM EDT [...] ACC/AHA Guidelines (most recently Brianne et al. [facility] 08/26/22): * For individuals with atherosclerotic [...] artery disease) Triston Godinez MD CHEMISTRY ORDERABLES [facility] [place] [address] * (ABNORMAL) pro-Brain Natriuretic Peptide (06/30/2024 6:09 PM EDT) [facility] NT-proBNP 2,259(H) <=449 pg/mL 06/30/2024 6:51 PM EDT [facility] Blood VENOUS BLOOD SPECIMEN / Unknown Venipuncture / Unknown 06/30/2024 6:09 PM EDT 06/30/2024 6:18 PM EDT Triston Godinez MD CHEMISTRY ORDERABLES Performing Organization Address [facility] Co de Phone Number [facility] [place] [address] * TSH (06/30/2024 6:09 PM EDT) Pathologist [facility] Thyroid Stimulating Hormone 2.80 0.27 - 4.20 mcIU/mL 06/30/2024 6:51 PM EDT [facility] Blood VENOUS BLOOD SPECIMEN / Unknown Venipuncture / Unknown 06/30/2024 6:09 PM EDT 06/30/2024 6:18 PM EDT Triston Godinez MD CHEMISTRY ORDERABLES Performing Organization Address [facility] Co de Phone Number [facility] [place] [address] * Heparin (unfractionated) Level (06/30/2024 6:08 PM [...] ORDERABLE S [facility] [place] [address] * (ABNORMAL) CBC (with Diff) (06/30/2024 6:08 [...] - 45.0 fL 06/30/2024 6:36 PM EDT [facility] RDW coefficient of variation 13.0 11.4 - 13.8 % 06/30/2024 6:36 PM [facility] NRBC% auto 0.0 % 06/30/2024 6:36 PM EDT [facility] NRBC Absolute 0.00 0.00 - 0.00 x10(3)/mc L 06/30/2024 6:36 PM EDT [facility] Neutrophil % 71.2 % 06/30/2024 6:36 PM EDT [facility] Neutrophil Absolute 4.59 1.70 - 6.10 x10(3)/mc L 06/30/2024 6:36 PM EDT [facility] Lymph % 18.1 % 06/30/2024 6:36 PM EDT [facility] Lymph Absolute 1.17 0.90 - 3.20 x10(3)/mc L 06/30/2024 6:36 PM EDT [facility] Monocyte % 8.2 % 06/30/2024 6:36 PM [facility] Monocyte Absolute 0.53 0.30 - [...] ORDERABLE S [facility] [place] [address] * (ABNORMAL) Hemoglobin A1c (06/30/2024 6:08 PM [...] red blood cell turnover may not be insurance follow up representative of glycemic control. Reference Interval: 4.3 [...] into estimated average glucose values. ??Diabetes Care 2008:31(8):7419-5482. Additional resources are available on the ADA website (diabetes.org). Triston Godinez MD CHEMISTRY ORDERABLES Performing Organization Address [facility] Co de Phone Number [facility] [place] [address] * POC, GLUCOSE (06/30/2024 5:58 PM EDT) Glucometer, POC 148 65 - 199 mg/dL 06/30/2024 5:58 PM EDT [facility] Comment:Supplemental ranges: <140 mg/dL before meals <180 mg/dL all other times of the day. Blood CAPILLARY BLOOD / Unknown 06/30/2024 5:58 PM EDT 06/30/2024 5:58 PM EDT Triston Godinez MD POINT OF CARE TEST O RDERABLES Performing Organization Address [facility] Co de Phone Number [facility] [place] [address] * EKG 12 Lead (06/30/2024 5:23 PM EDT) Ventricular rate 73 BPM MUSE SYSTEM Atrial Rate 300 BPM MUSE SYSTEM QRS Duration 72 ms MUSE SYSTEM Q-T Interval 404 ms MUSE SYSTEM QTC Calculated (Bezet) 445 ms MUSE SYSTEM Calculated P [place] 71 degrees MUSE SYSTEM Calculated R [place] 65 degrees MUSE SYSTEM Calculated T [place] 30 degrees MUSE SYSTEM INTERPRETATION Normal sinus [...] Godinez MD ECG ORDERABLES Performing Organization Address [facility]/State/ZIP Co de Phone Number MUSE SYSTEM * [...] NSTEMI (non-ST elevation myocardial infarction) Exam Location: [facility]. ? Conclusions -Left ventricular systolic function is moderately reduced. The left ventricular ejection fraction is 36% by Dowd's biplane. The anterolateral and inferolateral barahona are akinetic. The anterior wall is hypokinetic. -Right ventricle is mildly dilated. Systolic function is normal. -No significant valve disease. -See report for additional findings. No prior study is available. Procedure Complete-[id number]. Image enhancement Optison was used for left [...] Godinez MD - 06/30/2024 Version: 1 Name: RODRIGUEZ BRIAN M Study Date: 06/30/2024,4: 39 PM BP: 137 / 78 mmHg Patient Location:L3WB^374^A : 1950 (MM/DD/YYYY) Height: 193 cm Age: 74 Years Weight: 113 kg Gender: Male BSA: 2.43 m?? Ordering Physician: TRISTON GODINEZ Referring Physician: KENJI THOMAS Performed By: Carol Villarreal Reason For Study: NSTEMI (non-ST elevation myocardial infarction) Exam Location: [facility]. Conclusions -Left ventricular systolic function is moderately reduced. The leftventricular ejection fraction is 36% by Dowd's biplane. The anterolateral andinferolateral barahona are akinetic. The anterior wall is hypokinetic. -Right ventricle is mildly dilated. Systolic function is normal. -No significant valve disease. -See report for additional findings. No prior study is available. Procedure Complete-[id number]. Image enhancement Optison was used for left [...] (Bezet) 460 ms MUSE SYSTEM Calculated P Charlotte 69 degrees MUSE SYSTEM Calculated R Charlotte 78 degrees MUSE SYSTEM Calculated T Charlotte 39 degrees MUSE SYSTEM INTERPRETATION Sinus rhythm Occasional Premature ventricular complexes Right bundle branch block Abnormal ECG No previous ECGs available Confirmed by MD Arthur, Gutierrez Boyd ([id number]) on 07/01/2024 9:55:31 AM MUSE SYSTEM 06/30/2024 3:53 PM EDT 07/01/2024 9:55 AM EDT Triston Godinez MD ECG ORDERABLES [place] SYSTEM documented in this encounter Visit Diagnoses [...] Starting on Tresa 06/30/24 at 1647, Until 07/04/24 at 1725, Pain, - Maximum dose of [...] doses, First dose (after last modification) on 07/04/24 at 2100, Last dose on Thu07/10/24 at [...] Intravenous, BOLUS PER HEPARIN PROTOCOL, Starting on Tresa 06/30/24 at 1650, Until Thu07/01/24 at 2121, Per [...] (50 unit/mL) infusion 1 dose, Starting on Tresa 06/30/24 at 1548, Until Tresa 06/30/24 at 1551, Sujata Duncan: cabinet override heparin [...] 0836 (Given - Provider: Jenny Reddy, RONY) atorvastatin (Lipitor) tablet 80 mg 80 mg, [...] Jenny Reddy RN)1759 (Stopped - Provider: Jenny Reddy, ROYN) ciprofloxacin (Cipro) tablet 500 mg 500 mg, [...] Reddy RN) 0836 (Given - Provider: Jenny Redyd RN) enoxaparin (Lovenox) (40 mg/0.4 mL) subcutaneous [...] Reddy, RONY) 0836 (Given - Provider: Jenny Reddy, RN) insulin glargine-ygfn (Semglee) (100 unit/mL) subcutaneous injection vial 70 Units 70 Units, Subcutaneous, NIGHTLY, First dose on Thu06/30/24 at 2100, Until Discontinued, Routine 2045 (Given - Provider: Shea Shaver, RN) 2010 (Given - Provider: Shea Shaver RN) insulin lispro (HumaLOG;Admelog) (100 unit/mL) subcutaneous injection vial 0-5 Units 0-5 Units, Subcutaneous, 3 TIMES DAILY WITH MEALS, First dose on Thu07/04/24 at 0800, Until Discontinued, MEAL ASSOCIATED Give 1 Unit to every 30 Carbs Hold if not eating or if BG less than 70 mg/dL., Routine 08 (Given - Provider: Jenny Reddy, RONY)1305 (Given - Provider: Jenny Reddy, RN) insulin lispro (HumaLOG;Admelog) (100 unit/mL) subcutaneous [...] Reddy RN)1706 (Given - Provider: Jenny Reddy, RN) 0730 (Not Given - Provider: Jenny [...] 2 g, Intravenous, ONCE, 1 dose, On 07/04/24 at 0800, Administer over 120 Minutes 0837 [...] EVERY 6 HOURS SCHEDULED, First dose on [facility] 07/02/24 at 1200, Until Discontinued, Routine 1118 [...] 40 mEq, Oral, ONCE, 1 dose, On [place] 07/03/24 at 0730, potassium chloride ER particle/crystal [...] 1118 (Given - Provider: Sujata Duncan RN) 08 (Given - Provider: Jenny Reddy RN) 0835 [...] RN)1500 (Due - Provider: Iram De Jesus [facility]) tamsulosin (Flomax) capsule 0.8 mg 0.8 mg, [...] Starting on Tresa 06/30/24 at 1647, Until 07/04/24 at 1725, Pain, - Maximum dose of [...] 06/30/24 at 1558, Until 07/04/24 at 1725, for discomfort with PIV insertion, Routine nitroGLYcerin (Nitrostat) disintegrating tablet 0.4 mg 0.4 mg, Sublingual, EVERY 5 MIN PRN, Starting on Tresa 06/30/24 at 1558, Until 07/04/24 at 1725, Chest pain, May repeat every [...] Routine documented in this encounter Care Teams Business Services Officer Relationship Specialty Start Date End Date Deacon Watters, REGULATORY COMPLIANCE DIRECTOR [address] [place] [address] PCP - General Family Medicine 02/17/22 documented as of this encounter
--- OUTSIDE RECORDS SUMMARY | 2024-07-15 13:37 | XMS_ITS | Encounter Summary ---
Author Organization [facility] Address [facility] [place] [address] Care Team Providers Care Beater Head Name Role Phone Duong Deacon Wells APRN Primary Care Provider [phone]- [phone] Reason for Visit * Reason Comments Basal Cell Carcinoma Encounter Details Date Type Department Care Team (Latest Contact Info) Description 02/17/2024 7:45 AM EDT Clinical Support Dermatology at [facility] [address] [place] [address] Kingsley Finn MD [facility] [place] [address] Basal cell carcinoma of right side of [...] EDT Office [place] [address] Dion Barlow MD [facility] [place] [address] 09/01/2024 9:40 AM EDT Office Visit Cardiology at [address] [address] Franky Shaver MD [facility] [place] [address] 09/01/2024 11:20 AM EDT Office Visit Dermatology at [facility] [address] [place] [address] Gómez Mercre MD [facility] DR [place] [address] 09/21/2024 2:45 PM EDT Office Visit Pain and Spine Center at [facility] [place] [address] [phone] Trung Hoyos MD [facility] [place] [address] documented as of this encounter Visit Diagnoses Diagnosis Basal cell carcinoma of right side of nose Basal cell carcinoma of skin of other and unspecified parts of face documented in this encounter Care Teams Beater Head Relationship Specialty Start Date End Date Deacon Watters APRN [address] [place] [address] PCP - General Family Medicine 02/17/22 documented as of this encounter
--- OUTSIDE RECORDS SUMMARY | 2024-07-15 13:37 | XMS_ITS | Encounter Summary ---
[place] [address] Care Team Providers Care Charm Filter Operator Helper Name Role Phone Deacon Watters APRN Primary Care Provider [phone]- [phone] Encounter Details Date Type Department Care Team (Late st Contact Info) Description 05/05/2022 Telephone [place] [phone] Dianna Shen RN Social History Tobacco Use [...] - 05/23/2022 8:27 AM EDT Marbella from [facility] called to check on the status of this CT she can be reached at [phone]. * Telephone Encounter - Dianna Shen RN - 05/19/2022 11:04 AM EDT 05/16 TC to Brian to see where is at as far as abdominal pain. He states that pain has not improved. Asked if he has metal in his body and he states that he does. * Telephone Encounter - Dianna Shen RN - 05/05/2022 4:20 PM EDT left from radiology at [facility]. Due to contrast shortage, contrast IV is not being utilized for outpatient at their facility. They could schedule CT with oral only. Otherwise they are booking out to August for patients who need IV contrast. documented in this encounter Plan of Treatment Upcoming Encounters Date Type Department Care Team (Late st Contact Info) Description 08/15/2024 9:00 AM EDT Office [place] [address] Dion Barlow MD [facility] [place] [address] 09/01/2024 9:40 AM EDT Office Visit Cardiology at [address] [address] Franky Shaver MD [facility] [place] [address] 09/01/2024 11:20 AM EDT Office Visit Dermatology at [address] [place] [address] Gómez Mercer MD [facility] DR ED[place] [address] 09/21/2024 2:45 PM EDT Office Visit Pain and Spine Center at [facility] [place] [phone] Trung Hoyos MD [facility] [place] [address] documented as of this encounter Visit Diagnoses Not on filedocumented in this encounter Care Teams Charm Filter Operator Helper Relationship Specialty Start Date End Date Deacon Watters, JAZMINE [address] [place] [address] PCP - General Family Medicine 02/17/22 documented as of this encounter
--- OUTSIDE RECORDS SUMMARY | 2024-07-15 13:37 | XMS_ITS | Encounter Summary ---
Author Organization [facility], Later [facility] Address [facility] [place] [address] Care Team Providers Care Mathematical Scientist Name Role Phone Duong Deacon Wells APRN Primary Care Provider +1- [phone] Encounter Details Date Type Department Care Team (Latest Contact Info) Description 12/07/2023 8:00 AM EST Office [place] [address] Dion Barlow MD [facility] [place] [address] Left sided colitis without complications Social History [...] the next approximately eight weeks, please call [phone] to schedule the exam. 5. Repeat routine labs today. 6. Follow-up at the time of colonoscopy and in the office with Farideh Weinberg APRN in about 6-8 months. documented in this encounter Progress Notes * Dion Barlow MD - 12/07/2023 8:00 AM EST Images from the original note were not included. [facility] IBD PROGRAM ESTABLISHED PATIENT VISIT Patient Active Problem List Diagnosis Ulcerative colitis Overview Note: Colonoscopy 04/08/10 (Dr. Gomes [facility]) - inflammation only within the rectum and sigmoid; extent of the exam was to the hepatic flexure; biopsies proximal to the sigmoid nl Repeat exam 11/27/11 ([facility]): mildly active colitis in the [...] ascending colon. Several HPs and one TA. [place] 03/2022 - [place] 1 limited to rectosigmoid, [...] bladder. Was referred to his urologist at [facility]. He reports that he has a lot [...] for further details re current symptoms. - [facility] Gastro Pre-Visit Questionnaire 12/07/2023 7:54 [...] varicosities in both legs HEENT: PERRL, EOMI, RACE RELATIONS ADVISER and OP clear without ulceration or lesions. LUNGS: Clear to auscultation bilaterally. COR: Regular, normal S1 and S2 without murmurs ABD: Normal active bowel sounds. Soft and non-distended. Mild tenderness to deep palpation in the left lower quadrant more than the right lower quadrant EXT: Trace bilateral edema. Laboratory studies, imaging, and procedures (my review of prior records): Labs reviewed from [facility] 01/2023. CBC stable. Creatinine 1.6. Mild elevation [...] neighbor. He is to follow-up with his drug discovery informatics specialist, Deacon Watters APRN, in early December. Also [...] the next approximately 8 weeks, please call [phone] to schedule the exam. 5. Repeat routine labs today. 6. Follow-up at the time of colonoscopy and in the office with Farideh Weinberg APRN in about 6-8 months. Davina Barlow MD [employer] dealer Co-Director, [facility] Section of Gastroenterology [place] [address] documented in this encounter Plan of Treatment Upcoming Encounters Date Type Department Care Team (Late st Contact Info) Description 08/15/2024 9:00 AM EDT Office [place] [address] Dion Barlow MD [facility] [place] [address] 09/01/2024 9:40 AM EDT Office Visit Cardiology at [address] [place] [phone] Franky Shaver MD [facility] [place] [address] 09/01/2024 11:20 AM EDT Office Visit Dermatology at [facility] [address] [place] [address] Gómez Mercer MD [facility] [place] [address] 09/21/2024 2:45 PM EDT Office Visit [place] [phone] Trung Hoyos MD [facility] [place] [address] Scheduled Orders Name Type Priority Associated Diagnoses [...] 8:53 AM EST) Neutrophil % 70.6 % [facility] Neutrophil Absolute 4.29 1.70 - 6.10 x10(3)/[facility] Lymph % 20.4 % [facility] Lymphocytes Abs 1.2 0.9 - 3.2 x10(3)/[facility] Monocyte % 5.9 % [facility] Monocyte Abs 0.4 0.3 - 0.9 x10(3)/[facility] Eos % 2.1 % [facility] Eosinophils Abs 0.1 0.0 - 0.4 x10(3)/[facility] Basophil % 0.7 % [facility] Baso Absolute 0.0 0.0 - 0.1 x10(3)/[facility] Immature Gran % 0.30 % [facility] Comment: Immature granulocytes(IG's)percentage and absolute count will include metamyelocytes, myelocytes, and promyelocytes. Blood smears from CBCs yielding IG's will be scanned manually for concordance. If this scan disagrees with the automated IG or if promyelocytes are noted, a manual differential will be performed. Immature Gran Absolute 0.02 0.00 - 0.04 x10(3)/[facility] Blood 12/07/2023 8:53 AM EST 12/07/2023 9:03 AM EST Narrative Resulting Agency Comment Spec In Lab L Karthik Barlow MD HEMATOLOGY ORDERABLE S [facility] [place] [address] * (ABNORMAL) Hemogram (12/07/2023 8:53 AM EST) White Blood Cell 6.1 4.0 - 9.5 x10(3)/mc L [facility] Red Blood Cell 3.87(L) 4.58 - 5.54 x10(6)/mc L [facility] Hemoglobin 12.8(L) 13.7 - 16.5 g/dL [facility] Hematocrit 37.5(L) 40.5 - 48.5 % [facility] Mean Cell Volume 96.9(H) 82.9 - 93.1 fL [facility] Mean Cell Hemoglobin 33.1(H) 27.5 - 32.1 pg [facility] Mean Cell Hemoglobin Concentration 34.1 32.0 - 35.7 g/dL [facility] Platelet 199 145 - 357 x10(3)/mc L [facility] RDW Standard Deviation 44.2 36.0 - 45.0 fL [facility] RDW coefficient of variation 12.6 11.4 - 13.8 % [facility] Mean Platelet Volume 11.2 7.6 - 12.9 fL [facility] NRBC% auto 0.0 % [facility] NRBC Absolute 0.000 0.000 - 0.000 x10(3)/[facility] Blood 12/07/2023 8:53 AM EST 12/07/2023 9:03 AM EST Narrative Resulting Agency Comment Spec In Lab L Karthik Barlow MD HEMATOLOGY ORDERABLE S [facility] [place] [address] * CRP, acute inflammation (12/07/2023 8:53 AM EST) C-Reactive Protein <3.0 <=4.9 mg/L [facility] Blood 12/07/2023 8:53 AM EST 12/07/2023 9:03 AM EST Narrative Resulting Agency Comment Spec In Lab L Karthik Barlow MD CHEMISTRY ORDERABLES [facility] [place] [address] * (ABNORMAL) Comprehensive metabolic panel (non-fasting) (12/07/2023 8:53 AM EST) Glucose 140 65 - 199 mg/dL [facility] Comment:Diabetes: >=200 mg/d L plus symptoms Blood Urea Nitrogen 12 10 - 20 mg/dL [facility] Creatinine 1.05 0.80 - 1.50 mg/dL [facility] Sodium 144 135 - 145 mmol/L [facility] Potassium 4.0 3.5 - 5.0 mmol/L [facility] Comment: Please note: ??Patients with WBC >100,000 may have falsely elevated Potassium levels. ??For accurate Potassium quantification in these patients send serum separator tube (gold top) for subsequent determinations. ??Contact the Clinical Chemistry Laboratory if there are any questions. Chloride 109(H) 98 - 107 mmol/L [facility] Carbon Dioxide 24 22 - 31 mmol/L [facility] Anion Gap 11 5 - 15 mmol/L [facility] Calcium 9.5 8.5 - 10.5 mg/dL [facility] Protein, Total 7.8 6.1 - 8.0 g/dL [facility] Albumin 4.2 3.2 - 5.2 g/dL [facility] Aspartate Aminotransferase 13 0 - 39 unit/L [facility] Alanine Aminotransferase 15 0 - 55 unit/L [facility] Alkaline Phosphatase 77 40 - 130 unit/L [facility] Bilirubin, Total 0.4 0.2 - 1.3 mg/dL [facility] Est Glomerular Filtration Rate 74 >=60 mL/min/1. 73 m?? [facility] Comment: This patient's estimated GFR [...] Lab L Karthik Barlow [place] [address] documented in this encounter Visit Diagnoses Diagnosis Left sided colitis without complications Left sided ulcerative (chronic) colitis documented in this encounter Care Teams Mathematical Scientist Relationship Specialty Start Date End Date Deacon Watters, WHITE HAT HACKER [address] [place] [address] PCP - General Family Medicine 02/17/22 documented as of this encounter
--- OUTSIDE RECORDS SUMMARY | 2024-07-15 13:37 | XMS_ITS | Encounter Summary ---
Author Organization [facility] [place] [address] Care Team Providers Care Vehicle Safety Inspector Name Role Phone Deacon Watters JAZMINE Primary Care Provider +1- [phone] Reason for Visit * Reason Onset Date Comments Medication Refill 08/22/2022 Encounter Details Date Type Department Care Team (Late st Contact Info) Description 08/22/2022 Refill [place] [phone] Dion Barlow MD [facility] [place] [address] Social History Tobacco Use Types Packs/Day Years [...] 9:00 AM EDT Office [place] [phone] Dion Barlow MD [facility] [place] [address] 09/01/2024 9:40 AM EDT Office Visit Cardiology at [address] [place] [address] Franky Shaver MD [facility] [place] [address] 09/01/2024 11:20 AM EDT Office Visit Dermatology at [facility] [address] [place] [address] Gómez Mercer MD [facility] [place] [address] 09/21/2024 2:45 PM EDT Office Visit [facility] [place] [address] Trung Hoyos MD [facility] [place] [address] documented as of this encounter Visit Diagnoses Not on filedocumented in this encounter Care Teams Vehicle Safety Inspector Relationship Specialty Start Date End Date Deacon Watters, BLOOM CONVEYOR OPERATOR [address] [place] [address] PCP - General Family Medicine 02/17/22 documented as of this encounter
--- OUTSIDE RECORDS SUMMARY | 2024-07-15 13:37 | XMS_ITS | Encounter Summary ---
Author Organization [facility] [place] [address] Care Team Providers Care Registered Dietician Name Role Phone DuongDeacon Priscilla LUCERO Primary Care Provider +1- [phone] Encounter Details Date Type Department Care Team (Late st Contact Info) Description 11/10/2022 Telephone [place] [address] Dianna Shen RN Social History [...] 9:00 AM EDT Office [place] [address] Dion Barlow MD [facility] [place] [address] 09/01/2024 9:40 AM EDT Office Visit Cardiology at [address] [place] [address] Franky Shaver MD [facility] [place] [address] 09/01/2024 11:20 AM EDT Office Visit Dermatology at [facility] [address] [place] [address] Gómez Mercer MD [facility] [place] [address] 09/21/2024 2:45 PM EDT Office Visit [facility] [place] [address] Trung Hoyos MD [facility] [place] [address] documented as of this encounter Visit Diagnoses Not on filedocumented in this encounter Care Teams Registered Dietician Relationship Specialty Start Date End Date Deacon Watters APRN [address] [place] [address] PCP - General Family Medicine 02/17/22 documented as of this encounter
--- OUTSIDE RECORDS SUMMARY | 2024-07-15 13:37 | XMS_ITS | Encounter Summary ---
[place] [address] Care Team Providers Care Nursery School Attendant Name Role Phone Duong eDacon Wells APRN Primary Care Provider +1- [phone] Encounter Details Date Type Department Care Team (Late st Contact Info) Description 02/12/2023 Telephone [place] [address] Kelly Castillo RN Social History Tobacco Use [...] local ER. He would likely go to [place] if this is the case. Will ask regular IBD team to f/u with him in the AM. documented in this encounter Plan of Treatment Upcoming Encounters Date Type Department Care Team (Late st Contact Info) Description 08/15/2024 9:00 AM EDT Office Visit [place] [address] Dion Barlow MD [facility] GASTROENTER[place] [address] 09/01/2024 9:40 AM EDT Office Visit Cardiology at [address] [place] [address] Franky Shaver MD [facility] [place] [address] 09/01/2024 11:20 AM EDT Office Visit Dermatology at [facility] [address] [place] [address] Gómez Mercer MD [facility] [address] 09/21/2024 2:45 PM EDT Office Visit [facility] [place] [phone] Trung Hoyos MD [facility] PAIN [place] [address] documented as of this encounter Visit Diagnoses Not on filedocumented in this encounter Care Teams Nursery School Attendant Relationship Specialty Start Date End Date Deacon Watters, JAZMINE [address] [place] [address] [address] [facility] [place] [address] PCP - General Family Medicine 02/17/22 documented as of this encounter
--- OUTSIDE RECORDS SUMMARY | 2024-07-15 13:37 | XMS_ITS | Encounter Summary ---
Author Organization [facility] Address [facility] [place] [address] Care Team Providers Care Fisher Trammel Net Name Role Phone Duong Deacon Wells APRN Primary Care Provider +1- [phone] Encounter Details Date Type Department Care Team [...] 9:00 AM EDT Office Visit [place] [address] Dion Barlow MD [facility] [place] [address] 09/01/2024 9:40 AM EDT Office Visit Cardiology at [address] [phone] Franky Shaver MD [facility] [place] [address] 09/01/2024 11:20 AM EDT Office Visit Dermatology at [facility] [address] [place] [address] Gómez Mercer MD [facility] DR EDDIE [place] [address] 09/21/2024 2:45 PM EDT Office Visit [facility] [place] [address] Trung Hoyos MD [facility] [place] [address] documented as of this encounter Visit Diagnoses Not on filedocumented in this encounter Care Teams Fisher Trammel Net Relationship Specialty Start Date End Date Deacon Watters, JAZMINE [address] [place] [address] PCP - General Family Medicine 02/17/22 documented as of this encounter
--- OUTSIDE RECORDS SUMMARY | 2024-07-15 13:37 | XMS_ITS | Encounter Summary ---
Author Organization [facility] [address] Care Team Providers Care Relationship Banker Name Role Phone Deacon Watters APRN Primary Care Provider +1- [phone] Reason for Referral * Diagnostic Test (Routine) - Closed Specialty Diagnoses / Procedures Referred By Contac t Referred To Contact Radiology Diagnoses Left sided colitis without complications Procedures CT Abdomen & Pelvis w Contrast Dion Barlow MD [facility] [place] [address] Referral ID Status Reason Start Date Expiration Date V isits Requested Visits Authorized [id number] Closed Specialty Service Requested 04/22/2022 10/22/2023 1 1 Reason for Visit * Diagnostic Test (Routine) - Closed Specialty Diagnoses / Procedures Referred By Contac t Referred To Contact Radiology Diagnoses Left sided colitis without complications Procedures CT Abdomen & Pelvis w Contrast Dion Barlow MD [facility] [place] [address] Referral ID Status Reason Start Date Expiration Date V isits Requested Visits Authorized [id number] Closed Specialty Service Requested 04/22/2022 10/22/2023 1 1 Encounter Details Date Type Department Care Team (Latest Contact Info) Description 09/29/2022 1:05 PM EST - 09/29/2022 11:59 PM EST Hospital [place] [address] Dion Barlow MD [facility] [place] [place] [address] Left sided colitis without complications Discharge Disposition: [...] daily for MIGRAINE PROPHYLAXIS 0 04/06/2017 07/04/2024 sulfaSALAzine (Azulfidine) 500 mg Tablet Take 3 [...] per week) 133.6 g 5 08/26/2021 12/07/2023 lisinopril (PRINIVIL;ZESTRIL) 10 mg Tablet take 1 tablet by mouth once daily 0 04/07/2017 06/30/2024 omeprazole (PRILOSEC) 20 mg capsule Take 40 mg by mouth daily. 07/04/2024 documented as of this encounter Plan of Treatment Upcoming Encounters Date Type Department Care Team (Late st Contact Info) Description 08/15/2024 9:00 AM EDT Office Visit [place] [address] Dion Barlow MD [facility] [place] [address] 09/01/2024 9:40 AM EDT Office Visit Cardiology at [address] [phone] Franky Shaver MD [facility] [place] [place] [address] 09/01/2024 11:20 AM EDT Office Visit Dermatology at [facility] [address] [place] [address] Gómez Mercer MD [facility] DR [place] [address] 09/21/2024 2:45 PM EDT Office Visit Pain and Spine Center at [facility] [place] [address] Trung Hoyos MD [facility] [place] [place] [address] documented as of this encounter Procedures Procedure [...] who have questions please contact the health multi care technician that requested your imaging first. ? Narrative [...] mLs documented in this encounter Care Teams Relationship Banker Relationship Specialty Start Date End Date Deacon Watters, JAZMINE [address] [place] [address] PCP - General Family Medicine 02/17/22 documented as of this encounter
--- OUTSIDE RECORDS SUMMARY | 2024-07-15 13:37 | XMS_ITS | Encounter Summary ---
Author Organization [facility] [place] [address] Care Team Providers Care Dice Table Operator Name Role Phone Deacon Watters Priscilla LUCERO Primary Care Provider +1- [phone] Reason for Visit * Reason Onset Date Comments Medication Refill 09/21/2023 Encounter Details Date Type Department Care Team (Late st Contact Info) Description 09/21/2023 [place] [phone] Dion Barlow MD [facility] [place] [address] Social History Tobacco Use Types Packs/Day Years [...] 9:00 AM EDT Office [place] [phone] Dion Barlow MD [facility] [place] [address] 09/01/2024 9:40 AM EDT Office Visit Cardiology at [address] [place] [address] Franky Shaver MD [facility] [place] [address] 09/01/2024 11:20 AM EDT Office Visit Dermatology at [facility] [address] [place] [address] Gómez Mercer MD [facility] [place] [address] 09/21/2024 2:45 PM EDT Office Visit [place] [address] Trung Hoyos MD [facility] [place] [address] documented as of this encounter Visit Diagnoses Not on filedocumented in this encounter Care Teams Dice Table Operator Relationship Specialty Start Date End Date Deacon Watters, CAN MACHINE OPERATOR [address] [place] [address] PCP - General Family Medicine 02/17/22 documented as of this encounter
--- OUTSIDE RECORDS SUMMARY | 2024-07-15 13:37 | XMS_ITS | Encounter Summary ---
Author Organization [facility] [place] [address] Care Team Providers Care Yellow Pages Space Salesperson Name Role Phone Deacon Watters APRN Primary Care Provider +1- [phone] Encounter Details Date Type Department Care Team (Late st Contact Info) Description 11/20/2022 Telephone [place] [address] Jarret Roa RN Social History Tobacco Use [...] 9:00 AM EDT Office [place] [address] Dion Barlow MD [facility] [place] [address] 09/01/2024 9:40 AM EDT Office Visit Cardiology at [address] [place] [address] Franky Shaver MD [facility] [place] [address] 09/01/2024 11:20 AM EDT Office Visit Dermatology at [facility] [address] [place] [address] Gómez Mercer MD [facility] [place] [address] 09/21/2024 2:45 PM EDT Office Visit [facility] [place] [address] Trung Hoyos MD [facility] [place] [address] documented as of this encounter Visit Diagnoses Not on filedocumented in this encounter Care Teams Yellow Pages Space Salesperson Relationship Specialty Start Date End Date Deacon Watters APRN [address] [place] [address] [address] [place] [address] PCP - General Family Medicine 02/17/22 documented as of this encounter
--- OUTSIDE RECORDS SUMMARY | 2024-07-15 13:37 | XMS_ITS | Encounter Summary ---
Author Organization [facility] [place] [address] Care Team Providers Care Lead Nuclear Medicine Technologist Name Role Phone Deacon Watters Priscilla LUCERO Primary Care Provider +1- [phone] Reason for Visit * Reason Onset Date Comments Medication Refill 08/22/2022 Encounter Details Date Type Department Care Team (Late st Contact Info) Description 08/22/2022 [place] [phone] Dion Barlow MD [facility] [place] [address] Social History Tobacco Use Types Packs/Day Years [...] 9:00 AM EDT Office [place] [phone] Dion Barlow MD [facility] [place] [address] 09/01/2024 9:40 AM EDT Office Visit Cardiology at [address] [place] [address] Franky Shaver MD [facility] [place] [address] 09/01/2024 11:20 AM EDT Office Visit Dermatology at [facility] [address] [place] [address] Gómez Mercer MD [facility] [place] [address] 09/21/2024 2:45 PM EDT Office Visit [place] [address] Trung Hoyos MD [facility] [place] [address] documented as of this encounter Visit Diagnoses Not on filedocumented in this encounter Care Teams Lead Nuclear Medicine Technologist Relationship Specialty Start Date End Date Deacon Watters, NOTCH MACHINE OPERATOR [address] [place] [address] PCP - General Family Medicine 02/17/22 documented as of this encounter
--- OUTSIDE RECORDS SUMMARY | 2024-07-15 13:37 | XMS_ITS | Encounter Summary ---
Author Organization [facility] Address [facility] [place] [address] Care Team Providers Care Paper Coating Machine Operator Name Role Phone DuongDeacon Priscilla LUCERO Primary Care Provider +1- [phone] Encounter Details Date Type Department Care Team [...] 9:00 AM EDT Office Visit [place] [address] Dion Barlow MD [facility] [place] [address] 09/01/2024 9:40 AM EDT Office Visit Cardiology at [address] [phone] Franky Shaver MD [facility] [place] [address] 09/01/2024 11:20 AM EDT Office Visit Dermatology at [facility] [address] [place] [address] Gómez Mercer MD [facility] DR EDDIE [place] [address] 09/21/2024 2:45 PM EDT Office Visit Pain and Spine Center at [facility] [place] [address] Trung Hoyos MD [facility] [place] [address] documented as of this encounter Visit Diagnoses Not on filedocumented in this encounter Care Teams Paper Coating Machine Operator Relationship Specialty Start Date End Date Deacon Watters, JAZMINE [address] [place] [address] PCP - General Family Medicine 02/17/22 documented as of this encounter
--- OUTSIDE RECORDS SUMMARY | 2024-07-15 13:37 | XMS_ITS | Encounter Summary ---
Author Organization [facility] Address [facility] [place] [address] Care Team Providers Care Engineering Program Analyst Name Role Phone DuongVeliakip Wells APRN Primary Care Provider +1- [phone] Encounter Details Date Type Department Care Team (Late st Contact Info) Description 03/02/2024 2:45 PM EDT Office Visit Dermatology at [facility] [address] [place] [address] Matti Bland MD [facility] DR EDDIE [place] [address] Visit for suture removal Social History Tobacco [...] 2. Follow up with referring provider or final assembler boat for skin exams. 3. Follow up with Dr. Keller: as needed Note initiated and signed by Inge Forte LPN documented in this encounter Plan of Treatment Upcoming Encounters Date Type Department Care Team (Late st Contact Info) Description 08/15/2024 9:00 AM EDT Office [place] [address] Dion Barlow MD [facility] [place] [address] 09/01/2024 9:40 AM EDT Office Visit Cardiology at [address] [phone] Franky Shaver MD [facility] [place] [address] 09/01/2024 11:20 AM EDT Office Visit Dermatology at [facility] [address] [place] [address] Gómez Mercer MD [facility] DR EDDIE [place] [address] 09/21/2024 2:45 PM EDT Office Visit [place] [phone] Trung Hoyos MD [facility] [place] [address] documented as of this encounter Visit Diagnoses Diagnosis Visit for suture removal Encounter for removal of sutures documented in this encounter Care Teams Engineering Program Analyst Relationship Specialty Start Date End Date Deacon Watters, JAZMINE [address] [place] [address] PCP - General Family Medicine 02/17/22 documented as of this encounter
--- OUTSIDE RECORDS SUMMARY | 2024-07-15 13:37 | XMS_ITS | Encounter Summary ---
Author Organization [facility] Address [facility] [place] [address] Care Team Providers Care Research Manager Name Role Phone Duong Deacon Wells APRN Primary Care Provider +1- [phone] Reason for Visit * Reason Comments Basal Cell Carcinoma Encounter Details Date Type Department Care Team (Latest Contact Info) Description 02/17/2024 8:00 AM EDT Procedure visit Dermatology at [facility] [address] [place] [address] Kingsley Finn MD [facility] DR EDDIE [place] [address] Basal cell carcinoma of right side of [...] is performed when alternative procedures such as [id number] stitching is not optimal. Your graft may [...] the first week unless told differently. Some student services counselor may need to be delayed or delegated [...] as often as is recommended by your linseed oil boiler, for new skin cancers. This is once [...] it. If after hours, please call the cider press operator or [phone] and ask for the linseed oil boiler on-call. If you have any non-urgent questions or concerns, please feel free to call my office or contact me through our patient portal, [employer], at [email or web address] How to contact us during business hours Dermatology at [facility] [address]: Mohs scheduling or Mohs follow-up appointments: [phone] documented in this encounter Progress Notes * [...] and follow up with his or her linseed oil boiler or other skin provider. 5. Discussed avoiding [...] Reviewed and signed by: Kingsley Finn Dermatology [facility] * Kingsley Finn MD - 02/17/2024 8:00 AM EDT Mohs micrographic Surgery Operative Report Patient name: Brian Rodriguez : 1950 Date: 02/17/2024 Staff Surgeon and Pathologist: Kingsley Finn MD PhD Nursing/Health Analytics Consultant(s): Paula Baez RN, Zuly Morales RN, Barbara Platt BOTTLE FILLER, Olga Yostegand-Kaylin ROBINS, Vladimir Ward CMA, Inge ArellanoAt[facility] PLATE FITTER, Leah PTAEL Newborn Photographer (s): Vladimir Alejandro CMA Pre-operative diagnosis: Basal [...] The site was confirmed with the patient/authorized guest services representative/referring physician and/or a photograph form [...] Surgery and Dermatologic Oncology Department of Dermatology [address] [place] [address] OPERATIVE REPORT (REPAIR) Patient Name: Brian Rodriguez Age: 73 y.o. : 1950 Date: 02/17/2024 Staff Surgeon: Kingsley Finn MD PhD Assistants: Zuly Morales RN; Shannen Garcia MD; Magda Edouard MD Diagnosis: Status post Mohs micrographic surgery defect/wound Site: right nasal dorsum Final Defect Size prior to repair: 4 x 2.9 cm Donor site: right nasolabial fold INDICATION: repair and hindu of anatomy/function PROCEDURE: Full-thickness skin graft A [...] Rodriguez Staff Surgeon: Kingsley Finn MD PhD Capacitor Repairer(s): same as above chemistry research assistant: Zuly Morales RN; Magda Edouard MD; Shannen Garcia MD Date: 02/17/2024 Clinical Diagnosis: skin and soft tissue defect status post Mohs micrographic surgery Location/Site: right nasal dorsum Indication: repair of wound with hindu of anatomy/function Defect size to be repaired: [...] Surgery and Dermatologic Oncology Department of Dermatology [address] [place], [place] [id number] Note initiated by Zuly Morales RN. Zuly Morales RN has performed the documentation for this encounter in the presence of and acting as a scribe for Dr. Finn I performed the above scribed service and agree with the accuracy of the documentation in this encounter. Reviewed and signed by: Kingsley Finn Dermatology [facility] documented in this encounter Plan of Treatment Upcoming Encounters Date Type Department Care Team (Late st Contact Info) Description 08/15/2024 9:00 AM EDT Office [place] [address] Dion Barlow MD [facility] [place] [address] 09/01/2024 9:40 AM EDT Office Visit Cardiology at [address] [place] [address] Franky Shaver MD [facility] [place] [address] 09/01/2024 11:20 AM EDT Office Visit Dermatology at [facility] [address] [place] [phone] Gómez Mercer MD [facility] [place] [address] 09/21/2024 2:45 PM EDT Office Visit Pain and Spine Center at [facility] [place] [address] Trung Hoyos MD [facility] [place] [address] documented as of this encounter Visit Diagnoses Diagnosis Basal cell carcinoma of right side of nose Basal cell carcinoma of skin of other and unspecified parts of face documented in this encounter Care Teams Research Manager Relationship Specialty Start Date End Date Deacon Watters, JAZMINE [address] [facility] [address] [place] [address] PCP - General Family Medicine 02/17/22 documented as of this encounter
--- OUTSIDE RECORDS SUMMARY | 2024-07-15 13:37 | XMS_ITS | Encounter Summary ---
[place] [address] Care Team Providers Care Coating Line Worker Name Role Phone Duong Deacon Wells APRN Primary Care Provider +1- [phone] Encounter Details Date Type Department Care Team (Late st Contact Info) Description 10/15/2022 Telephone [place] [address] Roselia Coronado Social History Tobacco Use Types [...] 9:00 AM EDT Office [place] [address] Dion Barlow MD [facility] [place] [address] 09/01/2024 9:40 AM EDT Office Visit Cardiology at [address] [place] [address] Franky Shaver MD [facility] [place] [address] 09/01/2024 11:20 AM EDT Office Visit Dermatology at [facility] [address] [place] [address] Gómez Mercer MD [facility] [place] [address] 09/21/2024 2:45 PM EDT Office Visit [place] [address] Trung Hoyos MD [facility] [place] [address] documented as of this encounter Visit Diagnoses Not on filedocumented in this encounter Care Teams Coating Line Worker Relationship Specialty Start Date End Date Deacon Watters, BOOK CRITIC [address] [facility] 1 [place] [address] PCP - General Family Medicine 02/17/22 documented as of this encounter
--- OUTSIDE RECORDS SUMMARY | 2024-07-15 13:37 | XMS_ITS | Encounter Summary ---
Author Organization [facility] Address [facility] [place] [address] Care Team Providers Care Yarn Bleaching Machine Operator Name Role Phone Deacon Watters APRN Primary Care Provider +1- [phone] Reason for Referral * Physical Therapy (Routine) - Closed Specialty Diagnoses / Procedures Referred By Contac t Referred To Contact Physical Therapy Diagnoses Spondylosis of cervical region without myelopathy or radiculopathy Santiago Morales PA [facility] [place] [address] Physical Therapy, [address] [place] [address] Referral ID Status Reason Start Date Expiration Date V isits Requested Visits Authorized [id number] Closed Evaluate and Treat 01/07/2024 07/05/2024 12 12 Reason for Visit * Reason Comments Neck Pain chronic neck pain/MR I 10/27/23 in [facility] * Consultation (Routine) - Closed Specialty Diagnoses / Procedures Referred By Contac t Referred To Contact Pain and Spine Center Diagnoses Cervicalgia Other chronic pain chronic neck pain/MRI 10/27/23 @ [facility] Deacon Watters APRN [address] [place] [address] [facility] [place] [address] Referral ID Status Reason Start Date Expiration Date V isits Requested Visits Authorized [id number] Closed Consult, Test & Treat PCP Updated and/or Approved 11/11/2023 05/10/2024 1 1 Encounter Details Date Type Department Care Team (Latest Contact Info) Description 01/07/2024 8:45 AM EST Office Visit [place] [address] Santiago Morales PA [facility] [place] [address] Spondylosis of cervical region without myelopathy or [...] light touch. Motor exam shows 4/5 left retail reset merchandiser strength; otherwise 5/5 throughout. Negativehoffman bilaterally. Imaging: [...] neck pain. He has some left hand retail reset merchandiser weakness but otherwise is neuro intact. Imaging [...] 9:00 AM EDT Office [place] [address] Dion Barlow MD [facility] [place] [address] 09/01/2024 9:40 AM EDT Office Visit Cardiology at [address] [address] Franky Shaver MD [facility] [place] [address] 09/01/2024 11:20 AM EDT Office Visit Dermatology at [address] [place] [address] Gómez Mercer MD [facility] [place] [address] 09/21/2024 2:45 PM EDT Office Visit [place] [address] Trung Hoyos MD [facility] [place] [place] [address] Scheduled Referrals Name Type Priority Associated Diagnoses Orde r Schedule Referral to Physical Therapy Outpatient Referral Routine Spondylosis of cervical region without myelopathy or radiculopathy Ordered: 01/07/2024 documented as of this encounter Visit Diagnoses Diagnosis Spondylosis of cervical region without myelopathy or radiculopathy Cervical spondylosis without myelopathy documented in this encounter Care Teams Yarn Bleaching Machine Operator Relationship Specialty Start Date End Date Deacon Watters APRN [address] [place] [address] [address] [place] [address] PCP - General Family Medicine 02/17/22 documented as of this encounter
--- OUTSIDE RECORDS SUMMARY | 2024-07-15 13:37 | XMS_ITS | Encounter Summary ---
Author Organization [facility] Address [facility] [place] [address] Care Team Providers Care Spool Tender Name Role Phone Deacon Watters APRN Primary Care Provider +1- [phone] Encounter Details Date Type Department Care Team (Late st Contact Info) Description 09/29/2022 11:00 AM EST Office Visit [place] [address] Marcelle Weinberg AUTO LEASING MANAGER [facility] [place] [address] Left sided colitis without complications; Other ulcerative [...] Note: ? Colonoscopy 04/08/10 (Dr. Gomes [facility]) - inflammation only within the rectum and sigmoid; extent of the exam was to the hepatic flexure; biopsies proximal to the sigmoid nl ?? Repeat exam 11/27/11 ([facility] [...] was cancer, followed by Dr. Carrillo, at [facility]. IBD Questionnaire No questionnaires on file. IBD [...] Vitals: 09/29/22 1108 BP: 153/72 BP Location ([facility]): Left arm Patient Position: Sitting [...] Disease Center Section of Gastroenterology [place] [address] documented in this encounter Miscellaneous Notes * Addendum Note - Andres De Dios - 09/29/2022 11:00 AM ESTAddended by: ANDRES DE DIOS on: 09/29/2022 12:05 PM Modules accepted: Orders documented in this encounter Plan of Treatment Upcoming Encounters Date Type Department Care Team (Late st Contact Info) Description 08/15/2024 9:00 AM EDT Office Visit [place] [address] Dion Barlow MD [facility] [place] [address] 09/01/2024 9:40 AM EDT Office Visit Cardiology at [address] [place] [address] Franky Shaver MD [facility] [place] [address] 09/01/2024 11:20 AM EDT Office Visit Dermatology at [facility] [address] [place] [address] Gómez Mercer MD [facility] [place] [address] 09/21/2024 2:45 PM EDT Office Visit [place] [address] Trung Hoyos MD [facility] [place] [address] documented as of this encounter Procedures Procedure [...] Rate Automated 38 3 - 46 mm/hr [facility] Comment: Effective November 02, 2019 new capillary photometric technology has resulted in a change in reference ranges. It is recommended that each ESR result be reviewed with its own age appropriate reference range. Blood 09/29/2022 12:0 9 PM EST 09/29/2022 12:15 PM EST Narrative Resulting Agency Comment Spec In Lab Marcelle Weinberg AUTO LEASING MANAGER HEMATOLOGY ORDERA BLES Performing Organization Address [facility]/ZIP Co de Phone Number [facility] [place] [address] * CRP, acute inflammation (09/29/2022 12:09 PM EST) C-Reactive Protein <3.0 <=4.9 mg/L [facility] Blood 09/29/2022 12:0 9 PM EST 09/29/2022 12:15 PM EST Narrative Resulting Agency Comment Spec In Lab Marcelle Weinberg AUTO LEASING MANAGER CHEMISTRY ORDERAB LES Performing Organization Address [facility] Co de Phone Number [facility] [place] [address] * Creatinine (09/29/2022 12:09 PM EST) Creatinine 1.10 0.80 - 1.50 mg/dL [facility] Est Glomerular Filtration Rate 70 >=60 mL/min/1. 73 m?? [facility] Comment: This [...] Comment Spec In Lab Marcelle Dunnjeovannyjania AUTO LEASING MANAGER CHEMISTRY ORDERAB LES [facility] [place] [address] documented in this encounter Visit Diagnoses Diagnosis Left sided colitis without complications Left sided ulcerative (chronic) colitis Other ulcerative colitis with rectal bleeding documented in this encounter Care Teams Spool Tender Relationship Specialty Start Date End Date Deacon Watters APRN [address] [place] [address] PCP - General Family Medicine 02/17/22 documented as of this encounter
--- OUTSIDE RECORDS SUMMARY | 2024-07-15 13:37 | XMS_ITS | Encounter Summary ---
Author Organization [facility] Address [facility] [place] [address] Care Team Providers Care Coupler Name Role Phone Duong Deacon Wells APRN Primary Care Provider +1- [phone] Encounter Details Date Type Department Care Team (Latest Contact Info) Description 01/20/2024 9:28 AM EST - 01/20/2024 11:41 AM EST Hospital En[place] [address] Anthony Hamlin MD [facility] [place] [address] Discharge Disposition: Home Social History Tobacco Use [...] occurs, please contact your Doctor. Please call [phone] before 8pm Mon-Fri with problems, questions or concerns. If you call after 8pm or on weekends, call the Hospital at [phone] and ask to speak to the Sample Maker Original compensation and benefits manager and the ethylene compressor operator will contact that person for you. When should you call for help? Call 226 anytime you think you may need emergency [...] any problems. Where can you learn more? [facility] View your After Visit Summary and more online at [email or web address] If you would like to provide [...] cost to you. Content Version: 12.2 ?? [id number] [employer]. Care instructions adapted under license by [facility]. If you have questions about a medical condition or this instruction, always ask your healthcare professional. [employer] disclaims any warranty or liability for your [...] daily for MIGRAINE PROPHYLAXIS 0 04/06/2017 07/04/2024 dicyclomine (Bentyl) 20 mg tablet TAKE [...] 9:00 AM EDT Office [place] [address] Dion Barlow MD [facility] [place] [address] 09/01/2024 9:40 AM EDT Office Visit Cardiology at [address] [phone] Franky Shaver MD [facility] [place] [address] 09/01/2024 11:20 AM EDT Office Visit Dermatology at [address] [phone] Gómez Mercer MD [facility] [place] [address] 09/21/2024 2:45 PM EDT Office Visit [place] [address] Trung Hoyos MD [facility] [place] [address] documented as of this encounter Procedures Procedure [...] Routine 01/20/2024 10:24 AM EST Colonoscopy, Biopsy ([id number]) 01/20/2024 10:09 AM EST Left sided colitis without complications POCT GLUCOSE Routine 01/20/2024 10:05 AM EST POCT FINGERSTICK GLUCOSE Routine 01/20/2024 10:05 AM EST COLONOSCOPY Routine 01/20/2024 10:01 AM EST documented in this encounter Results * Specimen to Pathology (01/20/2024 10:48 AM EST) AP Specimen 01/20/2024 10:4 8 AM EST 01/20/2024 10:48 AM EST Narrative [facility] - 01/20/2024 10:48 AM EST Specimen requisition ordered. ??Separate Pathology report to follow Anthony Hamlin MD PATHOLOGY/CYTOLOGY O CEE Performing Organization Address [facility] Co de Phone Number [facility] [place] [address] * Specimen to Pathology (01/20/2024 10:48 AM EST) AP Specimen 01/20/2024 10:4 8 AM EST 01/20/2024 10:48 AM EST Narrative [facility] - 01/20/2024 10:48 AM EST Specimen requisition ordered. ??Separate Pathology report to follow Anthony Hamlin MD PATHOLOGY/CYTOLOGY O CEE Performing Organization Address City/[facility]/ZIP Co de Phone Number [facility] [place] [address] * Specimen to Pathology (01/20/2024 10:48 AM EST) AP Specimen 01/20/2024 10:4 8 AM EST 01/20/2024 10:48 AM EST Narrative [facility] - 01/20/2024 10:48 AM EST Specimen requisition ordered. ??Separate Pathology report to follow Anthony Hamlin MD PATHOLOGY/CYTOLOGY O RDMELISSA Performing Organization Address City/[facility] [place] [address] * Specimen to Pathology (01/20/2024 10:48 AM EST) AP Specimen 01/20/2024 10:4 8 AM EST 01/20/2024 10:48 AM EST Narrative [facility] - 01/20/2024 10:48 AM EST Specimen requisition ordered. ??Separate Pathology report to follow Anthony Hamlin MD PATHOLOGY/CYTOLOGY O RDMELISSA Performing Organization Address [facility] Co de Phone Number [facility] [place] [address] * Specimen to Pathology (01/20/2024 10:48 AM EST) AP Specimen 01/20/2024 10:4 8 AM EST 01/20/2024 10:48 AM EST Narrative [facility] - 01/20/2024 10:48 AM EST Specimen requisition ordered. ??Separate Pathology report to follow Anthony Hamlin MD PATHOLOGY/CYTOLOGY O CEE Performing Organization Address [facility] Co de Phone Number [facility] [place] [address] * Specimen to Pathology (01/20/2024 10:48 AM EST) AP Specimen 01/20/2024 10:4 8 AM EST 01/20/2024 10:48 AM EST Narrative [facility] - 01/20/2024 10:48 AM EST Specimen requisition ordered. ??Separate Pathology report to follow Anthony Hamlin MD PATHOLOGY/CYTOLOGY O RDMELISSA Performing Organization Address City/[facility] Co de Phone Number [facility] [place] [address] * Surgical Pathology Report (01/20/2024 10:24 AM EST) Final Diagnosis [id number] ? Location: 4T; EA12; A The signing [...] Dilip Verified: ??01/29/2024 12:04 ??Pathologist Performed at: ??-[facility] Dept. of Pathology, [place] [address] Equipment Service Lead: Joana Soler MD, FCAP, ??CLIA Certificate: [id number] SPECIMEN(S) SUBMITTED A - right colon, biopsy [...] labeled F1. ??sns 01/29/2024 12:04 PM EST [facility] GI Biopsy 01/20/2024 10:2 [...] EST Anthony Hamlin MD PATHOLOGY/CYTOLOGY O RDERABLES [facility] [place] [address] [facility] [place] [place] [address] * POCT Glucose (01/20/2024 10:05 AM EST) Glucose, POC 114 65 - 199 mg/dL [facility] Comment: Supplemental ranges: <140 mg/dL before meals <180 mg/dL all other times of the day Blood 01/20/2024 10:0 5 AM EST 01/20/2024 10:05 AM EST Anthony Hamlin MD POINT OF CARE TEST O RDERABLES [facility] [place] [address] * POCT Fingerstick Glucose (01/20/2024 10:05 AM EST) Glucose, POC 114 60 - 199 mg/dl 01/20/2024 10:0 5 AM EST Anthony Hamlin MD POINT OF CARE TEST O RDERABLES * COLONOSCOPY (01/20/2024 10:01 AM EST) COLONOSCOPY [facility] Endoscopy Procedure Date: 01/20/2024 10:01 AM ? Patient Name: Brian Rodriguez ? Date of : 1950 ? Age: 73 ? Order #: [id number] ? Instrument Name: [id number] ? Procedure: ? Colonoscopy Indications: ? Follow-up [...] ? physician, the nurse and the ? electrical cad technician in the pre-procedure ? area in [...] 01/20/2024 10:0 1 AM EST Deacon Watters MEDICAL STENOGRAPHER GENERAL SURGICAL O RDERABLES [employer]OVATION documented in [...] RN) documented in this encounter Care Teams Coupler Relationship Specialty Start Date End Date Deacon Watters, JAZMINE [address] [place] [address] [address] [place] [address] PCP - General Family Medicine 02/17/22 documented as of this encounter
--- OUTSIDE RECORDS SUMMARY | 2024-07-15 13:37 | XMS_ITS | Encounter Summary ---
Author Organization [facility] Address [facility] [place] [address] Care Team Providers Care Electro Optical Engineer Name Role Phone Deacon Watters APRN Primary Care Provider +1- [phone] Reason for Visit * Consultation (Routine) - Closed Specialty Diagnoses / Procedures Referred By Perri t Referred To Contact Dermatology Diagnoses Basal cell carcinoma (BCC), unspecified site Becca Villegas APRN [address] [place] [address] [place] [address] Kingsley Finn MD [facility] DR EDD[place] [address] Referral ID Status Reason Start Date Expiration Date V isits Requested Visits Authorized [id number] Closed Consult, Test & Treat PCP Updated and/or Approved 01/04/2024 01/03/2025 1 1 Encounter Details Date Type Department Care Team (Late st Contact Info) Description 01/28/2024 2:00 PM EST Office Visit Dermatology at [facility] [address] [place] [address] Kingsley Finn MD [facility] DR [place] [address] Basal cell carcinoma of right [...] and follow up with his or her concrete pipe making machine operator or other skin provider. 5. Discussed avoiding [...] Reviewed and signed by: Kingsley Finn Dermatology [facility] documented in this encounter Plan of Treatment Upcoming Encounters Date Type Department Care Team (Late st Contact Info) Description 08/15/2024 9:00 AM EDT Office [place] [address] Dion Barlow MD [facility] [place] [address] 09/01/2024 9:40 AM EDT Office Visit Cardiology at [address] [address] Franky Shaver MD [facility] [place] [address] 09/01/2024 11:20 AM EDT Office Visit Dermatology at [facility] [address] [place] [address] Gómez Mercer MD [facility] DR ED[place] [address] 09/21/2024 2:45 PM EDT Office Visit [place] [address] Trung Hoyos MD [facility] [place] [place] [address] Scheduled Referrals Name Type Priority Associated Diagnoses Orde r Schedule Referral to Dermatology Outpatient Referral Routine Basal cell carcinoma (BCC), unspecified site Ordered: 01/04/2024 documented as of this encounter Visit Diagnoses Diagnosis Basal cell carcinoma of right side of nose Basal cell carcinoma of skin of other and unspecified parts of face documented in this encounter Care Teams Electro Optical Engineer Relationship Specialty Start Date End Date Deacon Watters, ONLINE BANKING SPECIALIST [address] [place] [address] PCP - General Family Medicine 02/17/22 documented as of this encounter
--- OUTSIDE RECORDS SUMMARY | 2024-07-15 13:37 | XMS_ITS | Encounter Summary ---
Author Organization [facility] [place] [address] Care Team Providers Care Manager Business Banking Name Role Phone Deacon Watters Priscilla LUCERO Primary Care Provider +1- [phone] Reason for Visit * Reason Comments Medication Refill Encounter Details Date Type Department Care Team (Late st Contact Info) Description 01/11/2024 Refill [place] [address] Dion Barlow MD [facility] [place] [address] Social History Tobacco Use Types Packs/Day Years [...] EDT Office [place] [address] Dion Barlow MD [facility] [place] [address] 09/01/2024 9:40 AM EDT Office Visit Cardiology at [address] [place] [address] Franky Shaver MD [facility] [place] [address] 09/01/2024 11:20 AM EDT Office Visit Dermatology at [facility] [address] [place] [address] Gómez Mercer MD [facility] DR EDDIE [place] [address] 09/21/2024 2:45 PM EDT Office Visit [facility] [place] [address] Trung Hoyos MD [facility] [place] [address] documented as of this encounter Visit Diagnoses Not on filedocumented in this encounter Care Teams Manager Business Banking Relationship Specialty Start Date End Date Deacon Watters, COLLEGE ARCHIVIST [address] [place] [address] PCP - General Family Medicine 02/17/22 documented as of this encounter
--- OUTSIDE RECORDS SUMMARY | 2024-07-15 13:37 | XMS_ITS | Encounter Summary ---
Author Organization [facility] [place] [address] Care Team Providers Care Fitting Room Associate Name Role Phone Deacon Watters Priscilla LUCERO Primary Care Provider +1- [phone] Reason for Visit * Reason Comments Medication Refill Encounter Details Date Type Department Care Team (Late st Contact Info) Description 02/19/2024 Refill [place] [address] Dion Barlow MD [facility] [place] [address] Social History Tobacco Use Types Packs/Day Years [...] AM EDT Office Visit [place] [address] Dion Barlow MD [facility] [place] [address] 09/01/2024 9:40 AM EDT Office Visit Cardiology at [address] [place] [address] Franky Shaver MD [facility] [place] [address] 09/01/2024 11:20 AM EDT Office Visit Dermatology at [facility] [address] [place] [address] Gómez Mercer MD [facility] DR EDDIE [place] [address] 09/21/2024 2:45 PM EDT Office Visit Pain and Spine Center at [facility] [place] [address] Trung Hoyos MD [facility] [place] [address] documented as of this encounter Visit Diagnoses Not on filedocumented in this encounter Care Teams Fitting Room Associate Relationship Specialty Start Date End Date Deacon Watters, JAZMINE [address] [facility] [address] [place] [address] PCP - General Family Medicine 02/17/22 documented as of this encounter
--- OUTSIDE RECORDS SUMMARY | 2024-07-15 13:37 | XMS_ITS | Encounter Summary ---
Author Organization [facility] Address [facility] [place] [address] Care Team Providers Care Sr. Media Manager Name Role Phone Duong Deacon Wells APRN Primary Care Provider +1- [phone] Encounter Details Date Type Department Care Team [...] 9:00 AM EDT Office Visit [place] [address] Dion Barlow MD [facility] [place] [address] 09/01/2024 9:40 AM EDT Office Visit Cardiology at [address] [phone] Franky Shaver MD [facility] [place] [address] 09/01/2024 11:20 AM EDT Office Visit Dermatology at [facility] [address] [place] [address] Gómez Mercer MD [facility] DR [place] [address] 09/21/2024 2:45 PM EDT Office Visit [facility] [place] [address] Trung Hoyos MD [facility] [place] [address] documented as of this encounter Visit Diagnoses Not on filedocumented in this encounter Care Teams Sr. Media Manager Relationship Specialty Start Date End Date Deacon Watters, JAZMINE [address] [place] [address] PCP - General Family Medicine 02/17/22 documented as of this encounter
--- OUTSIDE RECORDS SUMMARY | 2024-07-15 13:37 | XMS_ITS | Encounter Summary ---
Author Organization [facility] Address [facility] [place] [address] Care Team Providers Care Floor Tech Name Role Phone DuongDeacon Priscilla LUCERO Primary Care Provider +1- [phone] Encounter Details Date Type Department Care Team [...] 9:00 AM EDT Office Visit [place] [address] Dion Barlow MD [facility] [place] [address] 09/01/2024 9:40 AM EDT Office Visit Cardiology at [address] [phone] Franky Shaver MD [facility] [place] [address] 09/01/2024 11:20 AM EDT Office Visit Dermatology at [facility] [address] [place] [address] Gómez Mercer MD [facility] DR [place] [address] 09/21/2024 2:45 PM EDT Office Visit Pain and Spine Center at [facility] [place] [address] Trung Hoyos MD [facility] [place] [address] documented as of this encounter Visit Diagnoses Not on filedocumented in this encounter Care Teams Floor Tech Relationship Specialty Start Date End Date Deacon Watters, JAZMINE [address] [place] [address] PCP - General Family Medicine 02/17/22 documented as of this encounter
--- OUTSIDE RECORDS SUMMARY | 2024-07-15 13:37 | XMS_ITS | Encounter Summary ---
Author Organization [facility] [place] [address] Care Team Providers Care Digital Marketer Name Role Phone Deacon Watters APRN Primary Care Provider +1- [phone] Encounter Details Date Type Department Care Team (Late st Contact Info) Description 10/27/2023 Ancillary Procedure [place] [phone] Deacon Watters APRN [address] [place], [place] [address] Social History Tobacco Use Types Packs/Day Years [...] 9:00 AM EDT Office [place] [address] Dion Barlow MD [facility] [place] [address] 09/01/2024 9:40 AM EDT Office Visit Cardiology at [address] [place] [address] Franky Shaver MD [facility] [place] [address] 09/01/2024 11:20 AM EDT Office Visit Dermatology at [facility] [address] [place] [address] Gómez Mercer MD [facility] DR [place] [address] 09/21/2024 2:45 PM EDT Office Visit [place] [address] Trung Hoyos MD [facility] [place] [address] documented as of this encounter Procedures Procedure Name Priority Date/Time Associated Diagnosis Comments FILM LIBRARY STORAGE ONLY MR SPINE Routine 10/27/2023 12:00 AM EST documented in this encounter Results * Film Library- Storage Only MR Spine (10/27/2023 12:00 AM EST) Narrative [facility] - 11/11/2023 10:39 AM EST This exam is auto-finalizing. It's purpose is for storage only. Deacon Watters APRN IMG FILM LIBRARY O RDERABLES [place], [place] documented in this encounter Visit Diagnoses Not on filedocumented in this encounter Care Teams Digital Marketer Relationship Specialty Start Date End Date Deacon Watters APRN [address] [place] [address] PCP - General Family Medicine 02/17/22 documented as of this encounter
--- OUTSIDE RECORDS SUMMARY | 2024-07-15 13:37 | XMS_ITS | Encounter Summary ---
Author Organization [facility] [place] [address] Care Team Providers Care Fitter Helper Name Role Phone Deacon Watters APRN Primary Care Provider +1- [phone] Encounter Details Date Type Department Care Team (Late st Contact Info) Description 10/06/2022 Telephone [place] [address] Marcelle Weinberg KNITTER HELPER [facility] [place] [address] Social History Tobacco Use Types Packs/Day Years [...] of this CT to Paula Alonso ( [facility]) and he would also give her office a call. documented in this encounter Plan of Treatment Upcoming Encounters Date Type Department Care Team (Late st Contact Info) Description 08/15/2024 9:00 AM EDT Office [place] [address] Dion Barlow MD [facility] [place] [address] 09/01/2024 9:40 AM EDT Office Visit Cardiology at [address] [address] Franky Shaver MD [facility] [place] [address] 09/01/2024 11:20 AM EDT Office Visit Dermatology at [facility] [address] [place] [address] Gómez Mercer MD [facility] DR EDDIE [place] [address] 09/21/2024 2:45 PM EDT Office Visit [facility] [place] [address] Trung Hoyos MD [facility] [place] [address] documented as of this encounter Visit Diagnoses Not on filedocumented in this encounter Care Teams Fitter Helper Relationship Specialty Start Date End Date Deacon Watters, KNITTER HELPER [address] [place] [address] PCP - General Family Medicine 02/17/22 documented as of this encounter
--- OUTSIDE RECORDS SUMMARY | 2024-07-15 13:37 | XMS_ITS | Encounter Summary ---
Author Organization [facility] Address [facility] [place] [address] Care Team Providers Care Service Parts Driver Name Role Phone Deacon Watters APRN Primary Care Provider +1- [phone] Reason for Referral * Consultation (Routine) - Closed Specialty Diagnoses / Procedures Referred By Perri t Referred To Contact Dermatology Diagnoses Basal cell carcinoma (BCC), unspecified site Becca Villegas APRN [address] [place] [address] [place] [address] Kingsley Finn MD [facility] DR EDDIE [place] [address] Referral ID Status Reason Start Date Expiration Date V isits Requested Visits Authorized [id number] Closed Consult, Test & Treat PCP Updated and/or Approved 01/04/2024 01/03/2025 1 1 Encounter Details Date Type Department Care Team (Late st Contact Info) Description 01/04/2024 Transcribe Orders eDH Incoming Referrals [phone] Becca Villegas [address] [place] [id number] Basal cell carcinoma (BCC), unspecified site (Primary [...] 9:00 AM EDT Office Visit [place] [address] Dion Barlow MD [facility] [place] [address] 09/01/2024 9:40 AM EDT Office Visit Cardiology at [address] [phone] Franky Shaver MD [facility] [place] [address] 09/01/2024 11:20 AM EDT Office Visit Dermatology at [address] [place] [address] Gómez Mercer MD [facility] DR EDDIE [place] [address] 09/21/2024 2:45 PM EDT Office Visit [facility] [place] [address] Trung Hoyos MD [facility] [place] [address] Scheduled Referrals Name Type Priority Associated Diagnoses Orde r Schedule Referral to Dermatology Outpatient Referral Routine Basal cell carcinoma (BCC), unspecified site Ordered: 01/04/2024 documented as of this encounter Visit Diagnoses Diagnosis Basal cell carcinoma (BCC), unspecified site- Primary documented in this encounter Care Teams Service Parts Driver Relationship Specialty Start Date End Date Deacon Watters, JAZMINE [address] [place] [address] PCP - General Family Medicine 02/17/22 documented as of this encounter
--- OUTSIDE RECORDS SUMMARY | 2024-07-15 13:37 | XMS_ITS | Encounter Summary ---
Author Organization [facility] [place] [address] Care Team Providers Care Analysis Engineer Name Role Phone Deacon Watters APRN Primary Care Provider +1- [phone] Encounter Details Date Type Department Care Team (Late st Contact Info) Description 11/03/2022 Telephone [place] [phone] Jarret Roa RN Social History Tobacco Use [...] weeks. Labs and stool studies sent to [facility]- He will call when he drops [...] 11/03/2022 2:40 PM EST Per Farideh Weinberg, CRM SYSTEM ADMINISTRATOR: Could you please check on him in [...] Office [place] [address] Dion Barlow MD [facility] [place] [address] 09/01/2024 9:40 AM EDT Office Visit Cardiology at [address] [address] Franky Shaver MD [facility] [place] [address] 09/01/2024 11:20 AM EDT Office Visit Dermatology at [facility] [address] [place] [address] Gómez Mercer MD [facility] DR EDDIE [place] [address] 09/21/2024 2:45 PM EDT Office Visit [facility] Sp[facility] at [facility] [place] [address] Trung Hoyos MD [facility] [place] [address] documented as of this encounter Visit Diagnoses Not on filedocumented in this encounter Care Teams Analysis Engineer Relationship Specialty Start Date End Date Deacon Watters APRN [address] [place] [address] [address] [place] [address] PCP - General Family Medicine 02/17/22 documented as of this encounter
--- OUTSIDE RECORDS SUMMARY | 2024-07-15 13:37 | XMS_ITS | Encounter Summary ---
Author [place] [address] Care Team Providers Care Sole Molder Name Role Phone Deacon Watters APRN Primary Care Provider +1- [phone] Encounter Details Date Type Department Care Team (Late st Contact Info) Description 12/07/2023 [place]phone [place] [phone] Estela Phillips Social History Tobacco Use Types [...] - 12/07/2023 10:47 AM EST Brian Rodriguez [id number] Diagnosis/Indication: UC surveillance Please review patient chart [...] procedure? No You must have a responsible green party who will drive you to your procedure, stay on campus for the entire duration of your procedure, and drive you home from your procedure. Who will likely be your route sales driver for the procedure? *Please Verify the [...] 9:00 AM EDT Office [place] [phone] Dion Barlow MD [facility] [place] [address] 09/01/2024 9:40 AM EDT Office Visit Cardiology at [address] [phone] Franky Shaver MD [facility] [place] [address] 09/01/2024 11:20 AM EDT Office Visit Dermatology at [facility] [address] [place] [phone] Gómez Mercer MD [facility] DR EDDIE [place] [address] 09/21/2024 2:45 PM EDT Office Visit [place] [address] Trung Hoyos MD [facility] [place] [address] documented as of this encounter Visit Diagnoses Not on filedocumented in this encounter Care Teams Sole Molder Relationship Specialty Start Date End Date Deacon Watters APRN [address] [place] [address] PCP - General Family Medicine 02/17/22 documented as of this encounter
--- OUTSIDE RECORDS SUMMARY | 2024-07-15 13:37 | XMS_ITS | Encounter Summary ---
Author Organization [facility] Address [facility] [place] [address] Care Team Providers Care Dental Technician Instructor Name Role Phone Deacon Watters APRN Primary Care Provider +1- [phone] Reason for Referral * Diagnostic Test (Routine) - Closed Specialty Diagnoses / Procedures Referred By Contac t Referred To Contact Radiology Diagnoses Left sided colitis without complications Procedures CT Abdomen & Pelvis w Contrast Dion Barlow MD [facility] [place] [address] Referral ID Status Reason Start Date Expiration Date V isits Requested Visits Authorized [id number] Closed Specialty Service Requested 04/22/2022 10/22/2023 1 1 Encounter Details Date Type Department Care Team (Late st Contact Info) Description 04/22/2022 8:00 AM EDT Office [place] [address] Dion Barlow MD [facility] [place] [address] Left sided colitis without complications; Tick bite [...] - CT scan to be arranged at [facility] in [facility] for left [...] Overview Note: ? Colonoscopy 04/08/10 (Dr. Gomes [facility]) - inflammation only within the rectum [...] Interval History: Last visit with Farideh Mathur [facility] 01/2022 Just had colo with Dr. Turner [...] adenopathy and no thyromegaly. HEENT: PERRL, EOMI, FORESTRY AND WILDLIFE MANAGER and OP clear without ulceration or lesions. [...] Ref Range Status ??? COLONOSCOPY 03/28/2022 Final Value:[facility] Endoscopy Procedure Date: 03/28/2022 3:15 PM Patient Name: Brian Rodriguez Date of : 1950 Age: 71 Order #: [id number] Instrument Name: [id number] Procedure: Colonoscopy Indications: Follow-up of ulcerative colitis Providers: Mona Turnre MD, April Archibald RN, Shay Marques Referring [...] bowel preparation was evaluated using the BBPS ([place] Bowel Preparation Scale) with scores of: Right [...] referring physician. Procedure Code(s): --- Professional --- 45904, Colonoscopy, flexible; with removal of tumor(s), polyp(s), or other lesion(s) by snare technique 01429, 59, Colonoscopy, flexible; with biopsy, single or multiple CPT copyright 2020 [employer]. All rights reserved. The codes documented in this report are preliminary and upon chain machine operator review may be revised to meet current compliance requirements. Attending Participation: I personally performed the entire procedure. Mona Turner MD Mona Turner MD 03/28/2022 4:33:58 PM This report has been signed electronically. Number of Addenda: 0 Note Initiated On: 03/28/2022 3:15 PM ??? Surgical Pathology Report 03/28/2022 Final Value:[id number] Location: 4T; EA12; A The signing pathologist [...] Christina Verified: 04/03/2022 15:08 Pathologist Performed at: -[facility] Dept. of Pathology, [place], [place] SPECIMEN(S) SUBMITTED A - Sigmoid bx, [...] en toto in 1 cassette labeled [facility] Visit on 02/19/2022 Component [...] Final Recent endoscopic procedures 06/28/21 EGD ( [facility]): Pre op Dx; Dysphagia Post op [...] would like to have this done in [facility]. He will keep an eye on the [...] - CT scan to be arranged at [facility] in [facility] for left [...] spent 25 min today counseling the patient [id number] on the issues outlined above and 10 minutes reviewing the chart, preparing for this visit, documenting, and implementing the plan. Davina Barlow MD Business Systems Administratorplasterer tender Co-Director, [facility] Section of Gastroenterology [place] [address] documented in this encounter Plan of Treatment Upcoming Encounters Date Type Department Care Team (Late st Contact Info) Description 08/15/2024 9:00 AM EDT Office Visit Gastroenterology at [place] [phone] Dion Barlow MD [facility] [place] [address] 09/01/2024 9:40 AM EDT Office Visit Cardiology at [address] [address] Franky Shaver MD [facility] [place] [address] 09/01/2024 11:20 AM EDT Office Visit Dermatology at [facility] [address] [place] [address] Gómez Mercer MD [facility] DR EDDIE [place] [address] 09/21/2024 2:45 PM EDT Office Visit [place] [phone] Trung Hoyos MD [facility] [place] [address] documented as of this encounter Procedures Procedure [...] who have questions please contact the health small animal caretaker that requested your imaging first. ? Electronically signed by: Papo Singer MD, [facility] ([phone]), at 09/29/2022 4:46 PM Narrative 09/29/2022 4:46 [...] 8:51 AM EDT) Neutrophil % 68.0 % [facility] Neutrophil Absolute 4.59 1.70 - 6.10 x10(3)/[facility] LAB[facility] Lymph % 20.1 % [facility] Lymphocytes Abs 1.4 0.9 - 3.2 x10(3)/[facility] Monocyte % 7.1 % [facility] Monocyte Abs 0.5 0.3 - 0.9 x10(3)/[facility] Eos % 3.8 % [facility] Eosinophils Abs 0.3 0.0 - 0.4 x10(3)/[facility] Basophil % 0.7 % [facility] Baso Absolute 0.0 0.0 - 0.1 x10(3)/[facility] Immature Gran % 0.30 % [facility] Comment: Immature granulocytes(IG's)percentage and absolute count will include metamyelocytes, myelocytes, and promyelocytes. Blood smears from CBCs yielding IG's will be scanned manually for concordance. If this scan disagrees with the automated IG or if promyelocytes are noted, a manual differential will be performed. Immature Gran Absolute 0.02 0.00 - 0.04 x10(3)/[facility] Blood 04/22/2022 8:51 AM EDT 04/22/2022 8:57 AM EDT Narrative Resulting Agency Comment Spec In Lab L Karthik Barlow MD HEMATOLOGY ORDERABLE S [facility] [place] [address] * (ABNORMAL) Hemogram (04/22/2022 8:51 AM EDT) White Blood Cell 6.8 4.0 - 9.5 x10(3)/[facility] LABORAT[facility] Red Blood Cell 3.70(L) 4.58 - 5.54 x10(6)/[facility]ORATORY Hemoglobin 12.4(L) 13.7 - 16.5 g/dL [facility] Hematocrit 37.5(L) 40.5 - 48.5 % [facility] Mean Cell Volume 101.4(H) 82.9 - 93.1 [facility] Mean Cell Hemoglobin 33.5(H) 27.5 - 32.1 pg [facility] Mean Cell Hemoglobin Concentration 33.1 32.0 - 35.7 g/dL [facility] Platelet 198 145 - 357 x10(3)/[facility] LABORAT[facility] RDW Standard Deviation 45.2(H) 36.0 - 45.0 [facility] RDW coefficient of variation 12.2 11.4 - 13.8 % [facility] Mean Platelet Volume 11.0 7.6 - 12.9 [facility] NRBC% auto 0.0 % [facility] NRBC Absolute 0.000 0.000 - 0.000 x10(3)/[facility] Blood 04/22/2022 8:51 AM EDT 04/22/2022 8:57 AM EDT Narrative Resulting Agency Comment Spec In Lab L Karthik Barlow MD HEMATOLOGY ORDERABLE S [facility] [place] [address] * (ABNORMAL) Basic Metabolic Panel (non-fasting) (04/22/2022 8:51 AM EDT) Glucose 206(H) 65 - 199 mg/dL [facility] Comment:Diabetes: >=200 mg/d L plus symptoms Blood Urea Nitrogen 21(H) 10 - 20 mg/dL [facility] Creatinine 1.17 0.80 - 1.50 mg/dL [facility] Sodium 141 135 - 145 mmol/L [facility] Potassium 4.6 3.5 - 5.0 mmol/L [facility] Comment: Please note: ??Patients with WBC >100,000 may have falsely elevated Potassium levels. ??For accurate Potassium quantification in these patients send serum separator tube (gold top) for subsequent determinations. ??Contact the Clinical Chemistry Laboratory if there are any questions. Chloride 104 98 - 107 mmol/L [facility] Carbon Dioxide 26 22 - 31 mmol/L [facility] Anion Gap 11 5 - 15 mmol/L [facility] Calcium 10.1 8.5 - 10.5 mg/dL [facility] Est Glomerular Filtration Rate 61 >=60 mL/min/1. 73 m?? [facility] [...] Barlow MD CHEMISTRY ORDERABLES Performing Organization Address [facility]/ZIP Co de Phone Number [facility] [place] [address] * CRP, acute inflammation (04/22/2022 8:51 AM EDT) C-Reactive Protein 3.3 <=4.9 mg/L [facility] Blood 04/22/2022 8:51 AM EDT 04/22/2022 8:57 AM EDT Narrative Resulting Agency Comment Spec In Lab L Karthik Barlow MD CHEMISTRY ORDERABLES Performing Organization Address [facility] Co de Phone Number [facility] [place] [address] * Sedimentation rate (04/22/2022 8:51 AM EDT) Sedimentation Rate Automated 36 3 - 46 mm/hr [facility] [...] MD HEMATOLOGY ORDERABLE S Performing Organization Address [facility] Co de Phone Number [facility] [place] [address] documented in this encounter Visit Diagnoses Diagnosis Left sided colitis without complications Left sided ulcerative (chronic) colitis Tick bite of abdominal wall, initial encounter Gastroesophageal reflux disease, unspecified whether esophagitis present Left sided colitis without complications Left sided ulcerative (chronic) colitis documented in this encounter Care Teams Dental Technician Instructor Relationship Specialty Start Date End Date Deacon Watters APRN [address] [place] [address] PCP - General Family Medicine 02/17/22 documented as of this encounter
--- OUTSIDE RECORDS SUMMARY | 2024-07-15 13:37 | XMS_ITS | Encounter Summary ---
Author Organization Replaced By [facility] Address [facility] [place] [address] Care Team Providers Care Registered Dental Assistant Rda Name Role Phone DuongDeacon Priscilla LUCERO Primary Care Provider +1- [phone] Encounter Details Date Type Department Care Team [...] 9:00 AM EDT Office [place] [address] Dion Barlow MD [facility] [place] [address] 09/01/2024 9:40 AM EDT Office Visit Cardiology at [address] [phone] Franky Shaver MD [facility] [place] [address] 09/01/2024 11:20 AM EDT Office Visit Dermatology at [facility] [address] [place] [address] Gómez Mercer MD [facility] DR [place] [address] 09/21/2024 2:45 PM EDT Office Visit Pain and Spine Center at [facility] [place] [address] Trung Hoyos MD [facility] [place] [address] documented as of this encounter Visit Diagnoses Not on filedocumented in this encounter Care Teams Registered Dental Assistant Rda Relationship Specialty Start Date End Date Deacon Watters, JAZMINE [address] [place] [address] PCP - General Family Medicine 02/17/22 documented as of this encounter
--- OUTSIDE RECORDS SUMMARY | 2024-07-15 13:37 | XMS_ITS | Encounter Summary ---
Author Organization [facility] Address [facility] [place] [address] Care Team Providers Care Fish Culturist Name Role Phone Duong Deacon Wells APRN Primary Care Provider +1- [phone] Encounter Details Date Type Department Care Team (Late st Contact Info) Description 01/20/2024 10:15 AM EST - 01/20/2024 11:00 AM EST [place] [address] Anthony Hamlin MD [facility] [place] [address] COLONOSCOPY FLEXIBLE, WITH BX (WRVU 3.56) Social [...] occurs, please contact your Doctor. Please call [phone] before 8pm Mon-Fri with problems, questions or concerns. If you call after 8pm or on weekends, call the Hospital at [phone] and ask to speak to the Theatrical Trouper seed corn production manager and the burglar alarm operator will contact that person for you. When should you call for help? Call [phone] anytime you think you may need emergency [...] problems. Where can you learn more? [facility] View your After Visit Summary and more online at [email or web address] If you would like to provide feedback [...] cost to you. Content Version: 12.2 ?? [id number] [employer]. Care instructions adapted under license by [facility]. If you have questions about a medical condition or this instruction, always ask your healthcare professional. [employer] disclaims any warranty or liability for your [...] 9:00 AM EDT Office [place] [address] Dion Barlow MD [facility] [place] [address] 09/01/2024 9:40 AM EDT Office Visit Cardiology at [address] [phone] Franky Shaver MD [facility] [place] [address] 09/01/2024 11:20 AM EDT Office Visit Dermatology at [address] [phone] Gómez Mercer MD [facility] DR [place] [address] 09/21/2024 2:45 PM EDT Office Visit [place] [address] Trung Hoyos MD [facility] [place] [address] documented as of this encounter Procedures Procedure [...] Routine 01/20/2024 10:24 AM EST Colonoscopy, Biopsy (14440) 01/20/2024 10:09 AM EST Left sided colitis without complications POCT GLUCOSE Routine 01/20/2024 10:05 AM EST POCT FINGERSTICK GLUCOSE Routine 01/20/2024 10:05 AM EST COLONOSCOPY Routine 01/20/2024 10:01 AM EST documented in this encounter Results * Specimen to Pathology (01/20/2024 10:48 AM EST) AP Specimen 01/20/2024 10:4 8 AM EST 01/20/2024 10:48 AM EST Narrative [facility] - 01/20/2024 10:48 AM EST Specimen requisition ordered. ??Separate Pathology report to follow Anthony Hamlin MD PATHOLOGY/CYTOLOGY O CEE Performing Organization Address [facility] Co de Phone Number [facility] [place] [address] * Specimen to Pathology (01/20/2024 10:48 AM EST) AP Specimen 01/20/2024 10:4 8 AM EST 01/20/2024 10:48 AM EST Narrative [facility] - 01/20/2024 10:48 AM EST Specimen requisition ordered. ??Separate Pathology report to follow Anthony Hamlin MD PATHOLOGY/CYTOLOGY O CEE [facility] [place] [address] * Specimen to Pathology (01/20/2024 10:48 AM EST) AP Specimen 01/20/2024 10:4 8 AM EST 01/20/2024 10:48 AM EST Narrative [facility] - 01/20/2024 10:48 AM EST Specimen requisition ordered. ??Separate Pathology report to follow Anthony Hamlin MD PATHOLOGY/CYTOLOGY O CEE Performing Organization Address City/[facility]/[place] [address] * Specimen to Pathology (01/20/2024 10:48 AM EST) AP Specimen 01/20/2024 10:4 8 AM EST 01/20/2024 10:48 AM EST Narrative [facility] - 01/20/2024 10:48 AM EST Specimen requisition ordered. ??Separate Pathology report to follow Anthony Hamlin MD PATHOLOGY/CYTOLOGY O CEE Performing Organization Address [facility] [place] [place] [address] * Specimen to Pathology (01/20/2024 10:48 AM EST) AP Specimen 01/20/2024 10:4 8 AM EST 01/20/2024 10:48 AM EST Narrative [facility] - 01/20/2024 10:48 AM EST Specimen requisition ordered. ??Separate Pathology report to follow Anthony Hamlin MD PATHOLOGY/CYTOLOGY O CEE Performing Organization Address [facility] Co de Phone Number [facility] [place] [address] * Specimen to Pathology (01/20/2024 10:48 AM EST) AP Specimen 01/20/2024 10:4 8 AM EST 01/20/2024 10:48 AM EST Narrative [facility] - 01/20/2024 10:48 AM EST Specimen requisition ordered. ??Separate Pathology report to follow Anthony Hamlin MD PATHOLOGY/CYTOLOGY O CEE Performing Organization Address City/[facility] [place] [place] [address] * Surgical Pathology Report (01/20/2024 10:24 AM EST) Final Diagnosis [id number] ? Location: 4T; EA12; A The signing [...] Dilip Verified: ??01/29/2024 12:04 ??Pathologist Performed at: ??-[facility] Dept. of Pathology, [place] [address] Interior Design Professional: Joana Soler MD, FCAP, ??CLIA Certificate: [id number] SPECIMEN(S) SUBMITTED A - right colon, biopsy [...] labeled F1. ??sns 01/29/2024 12:04 PM EST [facility] GI Biopsy 01/20/2024 10:2 4 [...] EST Anthony Hamlin MD PATHOLOGY/CYTOLOGY O RDERABLES [facility] [place] [address] [facility] [place] [address] * POCT Glucose (01/20/2024 10:05 AM EST) Glucose, POC 114 65 - 199 mg/dL [facility] Comment: Supplemental ranges: <140 mg/dL before meals <180 mg/dL all other times of the day Blood 01/20/2024 10:0 5 AM EST 01/20/2024 10:05 AM EST Anthony Hamlin MD POINT OF CARE TEST O RDERABLES [facility] [place] [address] * POCT Fingerstick Glucose (01/20/2024 10:05 AM EST) Glucose, POC 114 60 - 199 mg/dl 01/20/2024 10:0 5 AM EST Anthony Hamlin MD POINT OF CARE TEST O RDERABLES * COLONOSCOPY (01/20/2024 10:01 AM EST) COLONOSCOPY [facility] Endoscopy Procedure Date: 01/20/2024 10:01 AM ? Patient Name: Brian Rodriguez ? N: [id number] ? Date of : 1950 ? Age: 73 ? Order #: [id number] ? Instrument Name: [id number] ? Procedure: ? Colonoscopy Indications: ? Follow-up [...] ? physician, the nurse and the ? surveying technician in the pre-procedure ? area in [...] 01/20/2024 10:0 1 AM EST Deacon Watters GREENHOUSE TECHNICIAN GENERAL SURGICAL O RDERABLES PROVATION documented in [...] RN) documented in this encounter Care Teams Fish Culturist Relationship Specialty Start Date End Date Deacon Watters APRN [address] [place] [address] [address] [place] [address] PCP - General Family Medicine 02/17/22 documented as of this encounter
--- OUTSIDE RECORDS SUMMARY | 2024-07-15 13:37 | XMS_ITS | Encounter Summary ---
Author Organization [facility] Address [facility] [place] [address] Care Team Providers Care Combination Building Inspector Name Role Phone Duong Deacon Wells APRN Primary Care Provider +1- [phone] Encounter Details Date Type Department Care Team [...] 9:00 AM EDT Office [place] [address] Dion Barlow MD [facility] [place] [address] 09/01/2024 9:40 AM EDT Office Visit Cardiology at [address] [phone] Franky Shaver MD [facility] [place] [address] 09/01/2024 11:20 AM EDT Office Visit Dermatology at [facility] [address] [place] [address] Gómez Mercer MD [facility] DR [place] [address] 09/21/2024 2:45 PM EDT Office Visit [place] [phone] Trung Hoyos MD [facility] [place] [address] documented as of this encounter Visit Diagnoses Not on filedocumented in this encounter Care Teams Combination Building Inspector Relationship Specialty Start Date End Date Deacon Watters, JAZMINE [address] [place] [address] PCP - General Family Medicine 02/17/22 documented as of this encounter
--- OUTSIDE RECORDS SUMMARY | 2024-07-15 13:37 | XMS_ITS | Encounter Summary ---
Author Organization [facility] Address [facility] [place] [address] Care Team Providers Care Head Of Precision Targeting Name Role Phone DuongVeliakip Wells APRN Primary Care Provider [phone]- [phone] Encounter Details Date Type Department Care Team (Late st Contact Info) Description 11/04/2022 Orders [place] [phone] Dianna Shen, RN Other ulcerative colitis with [...] 9:00 AM EDT Office [place] [address] Dion Barlow MD [facility] [place] [address] 09/01/2024 9:40 AM EDT Office Visit Cardiology at [address] [address] Franky Shaver MD [facility] [place] [place] [address] 09/01/2024 11:20 AM EDT Office Visit Dermatology at [facility] [address] [place] [address] Gómez Mercer MD [facility] DR EDDIE [place] [address] 09/21/2024 2:45 PM EDT Office Visit Pain and Spine Center at [facility] [place] [address] Trung Hoyos MD [facility] [place] [address] documented as of this encounter Visit Diagnoses Diagnosis Other ulcerative colitis with rectal bleeding Left sided colitis without complications Left sided ulcerative (chronic) colitis Diarrhea, unspecified type documented in this encounter Care Teams Head Of Precision Targeting Relationship Specialty Start Date End Date Deacon Watters APRN [address] [place] [address] PCP - General Family Medicine 02/17/22 documented as of this encounter
--- OUTSIDE RECORDS SUMMARY | 2024-07-15 13:37 | XMS_ITS | Encounter Summary ---
[place] [address] Care Team Providers Care General Scrap Worker Name Role Phone Deacon Watters APRN Primary Care Provider +1- [phone] Reason for Referral * Consultation (Routine) - Closed Specialty Diagnoses / Procedures Referred By Contwillard t Referred To Contact Pain and Spine Center Diagnoses Cervicalgia Other chronic pain chronic neck pain/MRI 10/27/23 @ [facility] Deacon Watters APRN [address] [place] [address] [facility] [place] [address] Referral ID Status Reason Start Date Expiration Date V isits Requested Visits Authorized [id number] Closed Consult, Test & Treat PCP Updated and/or Approved 11/11/2023 05/10/2024 1 1 Encounter Details Date Type Department Care Team (Late st Contact Info) Description 11/18/2023 Transcribe Orders eD Incoming Referrals [phone] Deacon Watters APRN [address] [place], [place] [address] Cervicalgia; Other chronic pain Social History Tobacco [...] 9:00 AM EDT Office [place] [address] Dion Barlow MD [facility] [place] [place] [address] 09/01/2024 9:40 AM EDT Office Visit Cardiology at [address] [address] Franky Shaver MD [facility] [place] [address] 09/01/2024 11:20 AM EDT Office Visit Dermatology at [place] [address] [place] [address] Gómez Mercer MD [facility] DR [place] [address] 09/21/2024 2:45 PM EDT Office Visit [facility] [place] [address] Trung Hoyos MD [facility] [place] [address] Scheduled Referrals Name Type Priority Associated Diagnoses Orde r Schedule Referral to Spine Center Outpatient Referral Routine Cervicalgia Other chronic pain Ordered: 11/18/2023 documented as of this encounter Visit Diagnoses Diagnosis Cervicalgia Other chronic pain documented in this encounter Care Teams General Scrap Worker Relationship Specialty Start Date End Date Deacon Watters, CONDOMINIUM PROPERTY MANAGER [address] [place] [address] PCP - General Family Medicine 02/17/22 documented as of this encounter
--- OUTSIDE RECORDS SUMMARY | 2024-07-15 13:38 | XMS_ITS | Encounter Summary ---
[place] [address] Care Team Providers Care Summer School Coordinator Name Role Phone Deacon Watters APRN Primary Care Provider [phone]- [phone] Encounter Details Date Type Department Care Team (Latest Contact Info) Description 02/19/2022 10:52 AM EDT - 02/19/2022 11:59 PM EDT Hospital [place] [address] Other ulcerative colitis with rectal bleeding Discharge [...] daily for MIGRAINE PROPHYLAXIS 0 04/06/2017 07/04/2024 nystatin (Mycostatin) 100,000 unit/mL Suspension Place [...] rectally nightly. 90 g 3 03/15/2018 09/29/2022 lisinopril (PRINIVIL;ZESTRIL) 10 mg Tablet take 1 tablet by mouth once daily 0 04/07/2017 06/30/2024 omeprazole (PRILOSEC) 20 mg capsule Take 40 mg by mouth daily. 07/04/2024 documented as of this encounter Plan of Treatment Upcoming Encounters Date Type Department Care Team (Late st Contact Info) Description 08/15/2024 9:00 AM EDT Office Visit [place] [address] Dion Barlow MD [facility] [place] [address] 09/01/2024 9:40 AM EDT Office Visit Cardiology at [address] [place] [address] Franky Shaver MD [facility] [place] [place] [address] 09/01/2024 11:20 AM EDT Office Visit Dermatology at [facility] [address] [place] [address] Gómez Mercer MD [facility] [address] EDDIE [place] [address] 09/21/2024 2:45 PM EDT Office Visit [facility] [place] [address] Trung Hoyos MD [facility] [place] [address] documented as of this encounter Procedures Procedure [...] Comment Spec In Lab Monalisa C Dragnev IMMIGRATION PARALEGAL BODY FLUIDS AND S TOOLS ORDERABLES Performing Organization Address [facility] Co de Phone Number [facility] [place] [address] documented in this encounter Visit Diagnoses Diagnosis Other ulcerative colitis with rectal bleeding documented in this encounter Additional Health Concerns Infection Onset Date Last Indicated Resolved Time Rule Out C. difficile 02/19/2022 02/19/20222021 11:33 AM EDT documented as of this encounter Care Teams Summer School Coordinator Relationship Specialty Start Date End Date Deacon Watters APRN [address] [place] [address] PCP - General Family Medicine 02/17/22 documented as of this encounter
--- OUTSIDE RECORDS SUMMARY | 2024-07-15 13:38 | XMS_ITS | Encounter Summary ---
Author Organization [facility] [place] [address] Care Team Providers Care Room Service Food Service Attendant Name Role Phone Maximilian Fall MD Primary Care Provider [phone] Encounter Details Date Type Department Care Team (Late st Contact Info) Description 03/01/2020 Telephone [place] [address] Suzanne Guillermo Social History Tobacco Use Types [...] EDT Office [place] [address] Dion Barlow MD [facility] DR GASTROENTEROLOGY [place], [place] [address] 09/01/2024 9:40 AM EDT Office Visit Cardiology at [address] [place] [address] Franky Shaver MD [facility] [place] [address] 09/01/2024 11:20 AM EDT Office Visit Dermatology at [facility] [address] [place] [address] Gómez Mercer MD [facility] [place] [address] 09/21/2024 2:45 PM EDT Office Visit Pain and Spine Center at [facility] [place] [address] Trung Hoyos MD [facility] [place] [address] documented as of this encounter Visit Diagnoses Not on filedocumented in this encounter Care Teams Room Service Food Service Attendant Relationship Specialty Start Date End Date Maximilian Fall MD [address] [facility] [place] [address] PCP - General 10/01/11 02/13/21 documented as of this encounter
--- OUTSIDE RECORDS SUMMARY | 2024-07-15 13:38 | XMS_ITS | Encounter Summary ---
Author Organization [facility] Address [facility] [place] [address] Care Team Providers Care Attic Fans Mechanic Name Role Phone Duong Deacon Wells APRN Primary Care Provider [phone]- [phone] Encounter Details Date Type Department Care Team (Latest Contact Info) Description 03/28/2022 2:03 PM EDT - 03/28/2022 5:24 PM EDT Hospital Encounter [place] [address] Mona Turner MD [facility] [place] [address] Discharge Disposition: Home Social History Tobacco Use [...] occurs, please contact your Doctor. Please call [phone] before 8pm Mon-Fri with problems, questions or concerns. If you call after 8pm or on weekends, call the Hospital at [phone] and ask to speak to the Clam Dredger production assembly operator and the line haul owner operator will contact that person for you. When should you call for help? Call [phone] anytime you think you may need emergency [...] any problems. Where can you learn more? [facility] View your After Visit Summary and more online at [email or web address] If you would like to provide feedback [...] cost to you. Content Version: 12.2 ?? 7829-1550 [employer]. Care instructions adapted under license by [facility]. If you have questions about a medical condition or this instruction, always ask your healthcare professional. [employer] disclaims any warranty or liability for your [...] 9:00 AM EDT Office [place] [phone] Dion Barlow MD [facility] [place] [address] 09/01/2024 9:40 AM EDT Office Visit Cardiology at [address] [address] Franky Shaver MD [facility] [place] [address] 09/01/2024 11:20 AM EDT Office Visit Dermatology at [address] [address] Gómez Mercer MD [facility] DR [place] [address] 09/21/2024 2:45 PM EDT Office Visit [place] [address] Trung Hoyos MD [facility] [place] [address] documented as of this encounter Procedures Procedure Name Priority Date/Time Associated Diagnosis Comments SURGICAL PATHOLOGY REPORT Routine 03/28/2022 4:22 PM EDT SPECIMEN TO PATHOLOGY Routine 03/28/2022 4:22 PM EDT SPECIMEN TO PATHOLOGY Routine 03/28/2022 4:22 PM EDT SPECIMEN TO PATHOLOGY Routine 03/28/2022 4:22 PM EDT Colonoscopy, Biopsy ([id number]) 03/28/2022 3:30 PM EDT Other ulcerative colitis with rectal bleeding COLONOSCOPY Routine 03/28/2022 3:15 PM EDT documented in this encounter Results * Surgical Pathology Report (03/28/2022 4:22 PM EDT) Final Diagnosis [id number] ? Location: 4T; EA12; A The signing [...] Christina Verified: ??04/03/2022 15:08 ??Pathologist Performed at: ??-[facility] Dept. of Pathology, [place], [place] SPECIMEN(S) SUBMITTED A - Sigmoid bx, [...] EDT Mona Turner MD PATHOLOGY/CYTOLOGY O CEE [facility] [place] [address] * Specimen to Pathology (03/28/2022 4:22 PM EDT) AP Specimen 03/28/2022 4:22 PM EDT 03/28/2022 4:[address] [facility] - 03/28/2022 4:22 PM EDT Specimen requisition ordered. ??Separate Pathology report to follow Mona Turner MD PATHOLOGY/CYTOLOGY O CEE [facility] [place] [address] * Specimen to Pathology (03/28/2022 4:22 PM EDT) AP Specimen 03/28/2022 4:22 PM EDT 03/28/2022 4:[address] [facility] - 03/28/2022 4:22 PM EDT Specimen requisition ordered. ??Separate Pathology report to follow Mona Turner MD PATHOLOGY/CYTOLOGY O CEE Performing Organization Address [facility] [place] [address] * Specimen to Pathology (03/28/2022 4:22 PM EDT) AP Specimen 03/28/2022 4:22 PM EDT 03/28/2022 4:[address] [facility] - 03/28/2022 4:22 PM EDT Specimen requisition ordered. ??Separate Pathology report to follow Mona Turner MD PATHOLOGY/CYTOLOGY Ozzie MIKE Performing Organization Address [facility] [place] [address] * COLONOSCOPY (03/28/2022 3:15 PM EDT) COLONOSCOPY [facility] Endoscopy Procedure Date: 03/28/2022 3:15 PM ? Patient Name: Brian Rodriguez ? Date of : 1950 ? Age: 71 ? Order #: [id number] ? Instrument Name: [id number] ? Procedure: ? Colonoscopy Indications: ? Follow-up of ulcerative colitis Providers: ? Mona Turner MD, April Augustine ? RONY Archibald, Shay Maynard MD: ?Davina Barlow MD, Deacon Dior ? [facility]: ? Midazolam 4 mg IV, [...] ? was evaluated using the BBPS ? ([place] Bowel Preparation Scale) ? with scores of: [...] Procedure Code(s): ? --- Professional --- ? 21676, Colonoscopy, flexible; with ? removal of tumor(s), polyp(s), or ? other lesion(s) by snare technique ? 23824, 59, Colonoscopy, flexible; ? with biopsy, single or multiple CPT copyright 2020 [employer]. All rights reserved. The codes documented in this report are preliminary and upon certified medical records coder review may be revised to meet current compliance requirements. Attending Participation: ? I personally performed the entire procedure. ? Mona Turner MD _ Mona Turner MD 03/28/2022 4:33:58 PM This report has been signed electronically. Number of Addenda: 0 Note Initiated On: 03/28/2022 3:15 PM PROVATION 03/28/2022 3:15 PM EDT Deacon Watters INDUSTRIAL GREEN SYSTEMS DESIGNER GENERAL SURGICAL O RDERABLES Performing Organization Address City/State/[facility] Co de Phone Number PROVATION documented [...] RN) documented in this encounter Care Teams Attic Fans Mechanic Relationship Specialty Start Date End Date Deacon Watters, INDUSTRIAL GREEN SYSTEMS DESIGNER [address] [place] [address] [address] [place] [address] PCP - General Family Medicine 02/17/22 documented as of this encounter
--- OUTSIDE RECORDS SUMMARY | 2024-07-15 13:38 | XMS_ITS | Encounter Summary ---
Author Organization [facility] [place] [address] Care Team Providers Care Die Tripper Name Role Phone Josue Wilkinson MD Primary Care Provider [phone] Encounter Details Date Type Department Care Team (Latest Contact Info) Description 05/31/2021 1:35 PM EDT Laboratory Appointment Lab [address] [place] [phone] Left sided colitis without complications Social History [...] 9:00 AM EDT Office Visit [place] [phone] Dion Barlow MD [facility] [place] [address] 09/01/2024 9:40 AM EDT Office Visit Cardiology at [address] [phone] Franky Shaver MD [facility] [place] [address] 09/01/2024 11:20 AM EDT Office Visit Dermatology at [facility] [address] [place] [address] Gómez Mercer MD [facility] DR EDDIE [place] [address] 09/21/2024 2:45 PM EDT Office Visit Pain and Spine Center at [facility] [place] [address] Trung Hoyos MD [facility] [place] [address] documented as of this encounter Procedures Procedure [...] 1:49 PM EDT) Neutrophil % 70.8 % [facility] Neutrophil Absolute 5.02 1.70 - 6.10 x10(3)/[facility] LABORATORY Lymph % 18.5 % [facility] Lymphocytes Abs 1.3 0.9 - 3.2 x10(3)/[facility] LABORATORY Monocyte % 6.9 % [facility] Monocyte Abs 0.5 0.3 - 0.9 x10(3)/[facility] LABORATORY Eos % 2.8 % [facility] Eosinophils Abs 0.2 0.0 - 0.4 x10(3)/[facility] LABORATORY Basophil % 0.6 % [facility] Baso Absolute 0.0 0.0 - 0.1 x10(3)/[facility] LABORATORY Immature Gran % 0.40 % [facility] Comment: Immature granulocytes(IG's)percentage and absolute count will include metamyelocytes, myelocytes, and promyelocytes. Blood smears from CBCs yielding IG's will be scanned manually for concordance. If this scan disagrees with the automated IG or if promyelocytes are noted, a manual differential will be performed. Immature Gran Absolute 0.03 0.00 - 0.04 x10(3)/[facility] LABORATORY Blood 05/31/2021 1:49 PM EDT 05/31/2021 1:52 PM EDT Narrative Resulting Agency Comment Spec In Lab Marcelle Weinberg [facility] ORDERA BLES [facility] [place] [address] * (ABNORMAL) Hemogram (05/31/2021 1:49 PM EDT) White Blood Cell 7.1 4.0 - 9.5 x10(3)/[facility] LABORATORY Red Blood Cell 3.85(L) 4.58 - 5.54 x10(6)/ L [facility] Hemoglobin 12.6(L) 13.7 - 16.5 gm/dL [facility] Hematocrit 38.4(L) 40.5 - 48.5 % [facility] Mean Cell Volume 99.7(H) 82.9 - 93.1 fL [facility] Mean Cell Hemoglobin 32.7(H) 27.5 - 32.1 pg [facility] Mean Cell Hemoglobin Concentration 32.8 32.0 - 35.7 gm/dL [facility] Platelet 215 145 - 357 x10(3)/mc L [facility] RDW Standard Deviation 45.1(H) 36.0 - 45.0 fL [facility] RDW coefficient of variation 12.3 11.4 - 13.8 % [facility] Mean Platelet Volume 11.2 7.6 - 12.9 fL [facility] NRBC% auto 0.0 % [facility] NRBC Absolute 0.000 0.000 - 0.000 x10(3)/mc L [facility] Blood 05/31/2021 1:49 PM EDT 05/31/2021 1:52 PM EDT Narrative Resulting Agency Comment Spec In Lab Marcelle Weinberg [facility] ORDERA BLES Performing Organization Address City/[facility]/ZIP Co de Phone Number [facility] [place] [address] * Ferritin (05/31/2021 1:49 PM EDT) [facility] Ferritin 94 30 - 400 ng/mL [facility] Comment: Pediatric reference ranges not verified at [facility], interpret with caution. Reference ranges for females greater than 50 years of age approach values for men, i.e., 30-400 ng/mL. Blood 05/31/2021 1:49 PM EDT 05/31/2021 1:52 PM EDT Narrative Resulting Agency Comment Spec In Lab Marcelle Weinberg [facility] ORDERAB LES Performing Organization Address City/[facility]/ZIP Co de Phone Number [facility] [place] [address] * Iron and TIBC (05/31/2021 1:49 PM EDT) Iron 86 45 - 160 mcg/dL [facility] TIBC 286 250 - 450 mcg/dL [facility] Iron Saturation 30 20 - 50 % [facility] Blood 05/31/2021 1:49 PM EDT 05/31/2021 1:52 PM EDT Narrative Resulting Agency Comment Spec In Lab Marcelle Wienberg [facility] ORDERAB LES Performing Organization Address City/[facility]/ZIP Co de Phone Number [facility] [place] [address] * Vitamin B12 (05/31/2021 1:49 PM EDT) Vitamin B12 389 232 - 1,245 pg/mL [facility] Blood 05/31/2021 1:49 PM EDT 05/31/2021 1:52 PM EDT Narrative Resulting Agency Comment Spec In Lab Marcelle Dunnjeovannyjania [facility] ORDERAB LES Performing Organization Address City/[facility]/ZIP Co de Phone Number [facility] [place] [address] documented in this encounter Visit Diagnoses Diagnosis Left sided colitis without complications Left sided ulcerative (chronic) colitis documented in this encounter Care Teams Die Tripper Relationship Specialty Start Date End Date Josue Wilkinson MD PCP - General General Internal Medicine 02/14/21 9/3 documented as of this encounter
--- OUTSIDE RECORDS SUMMARY | 2024-07-15 13:38 | XMS_ITS | Encounter Summary ---
Author Organization [facility] Address [facility] [place] [address] Care Team Providers Care Information Systems Audit Manager Name Role Phone Maximilian Fall MD Primary Care Provider [phone] Encounter Details Date Type Department Care Team (Latest Contact Info) Description 03/20/2020 10:00 AM EDT TH Visit (TeleHealth) [place] [address] Dion Osullivan MD [facility] [place] [address] Other ulcerative colitis with rectal bleeding Social [...] Overview Note: ?? Colonoscopy 04/08/10 (Dr. Gomes [facility]) - inflammation only within the rectum and sigmoid; extent of the exam was to the hepatic flexure; biopsies proximal to the sigmoid nl ?? Repeat exam 11/27/11 ([facility] [...] apparently recommended by his urology team and [facility]. He reports for a UTI (perhaps chronic [...] past surgical history that includes Colonoscopy, Diagnostic (70435) (11/27/2011); Sigmoidoscopy, Diagnostic (29151) (03/16/2012); Upper Gi Endoscopy, Exam (78671) (10/01/2012); Colonoscopy, Diagnostic (05162) (07/13/2014); Colonoscopy, Biopsy (48829) (N/A, 02/12/2017); Colonoscopy, Biopsy (16830) (N/A, 02/22/2019); Colonoscopy, Remv Lesn, Snare ([id number]) (N/A, 02/22/2019); and Upper GI Endoscopy, Diagnostic (32047) (N/A, 04/28/2019). Family History: family history is [...] Would check C. Diff and lactoferrin at [facility]. Also, will call if diarrhea does not [...] with patient on above. Dion OSULLIVAN MD [facility] [place] [address] documented in this encounter Plan of Treatment Upcoming Encounters Date Type Department Care Team (Late st Contact Info) Description 08/15/2024 9:00 AM EDT Office Visit [place] [address] Dion Osullivan MD [facility] [place] [address] 09/01/2024 9:40 AM EDT Office Visit Cardiology at [address] [place] [address] Franky Shaver MD [facility] [place] [address] 09/01/2024 11:20 AM EDT Office Visit Dermatology at [facility] [address] [place] [address] Gómez Mercer MD [facility] [place] [address] 09/21/2024 2:45 PM EDT Office Visit [facility] [place] [address] Trung Hoyos MD [facility] [place] [address] documented as of this encounter Visit Diagnoses Diagnosis Other ulcerative colitis with rectal bleeding documented in this encounter Care Teams Information Systems Audit Manager Relationship Specialty Start Date End Date Maximilian Fall MD [address] [facility] [place] [address] PCP - General 10/01/11 02/13/21 documented as of this encounter
--- OUTSIDE RECORDS SUMMARY | 2024-07-15 13:38 | XMS_ITS | Encounter Summary ---
Author Organization [facility] Address [facility] [place] [address] Care Team Providers Care Council Member Name Role Phone Josue Wilkinson MD Primary Care Provider [phone] Encounter Details Date Type Department Care Team (Latest Contact Info) Description 02/26/2021 2:52 PM EDT - 02/26/2021 6:22 PM EDT Hospital Encounter [place] [address] Dion Barlow MD [facility] [place] [address] Discharge Disposition: Home Social History Tobacco Use [...] to be checked. Thursday-Thursday Same Day Endo [phone] Otherwise contact [phone] and ask to speak to the photography spotter machine operations supervisor Follow up care is a le part [...] tablet Take 10 mg by mouth daily. albuterol 90 mcg/actuation HFA Aerosol Inhaler Inhale 2 puffs into the lungs every 4 hours as needed for Wheezing. Use with spacer BASAGLAR SIMONEIKPEN U-100 INSULIN 100 unit/mL (3 mL) pen [...] daily for MIGRAINE PROPHYLAXIS 0 04/06/2017 07/04/2024 budesonide 2 mg/actuation FoamIndications:Left sided colitis without [...] 9:00 AM EDT Office Visit [place] [address] Dion Barlow MD [facility] [place] [address] 09/01/2024 9:40 AM EDT Office Visit Cardiology at [address] [place] [phone] Franky Shaver MD [facility] [place] [address] 09/01/2024 11:20 AM EDT Office Visit Dermatology at [facility] [address] [place] [phone] Gómez Mercer MD [facility] [place] [address] 09/21/2024 2:45 PM EDT Office Visit [facility] [place] [phone] Trung Hoyos MD [facility] [place] [address] documented as of this encounter Procedures Procedure Name Priority Date/Time Associated Diagnosis Comments POCT GLUCOSE Routine 02/26/2021 5:51 PM EDT SPECIMEN TO PATHOLOGY Routine 02/26/2021 5:10 PM EDT SPECIMEN TO PATHOLOGY Routine 02/26/2021 5:10 PM EDT SPECIMEN TO PATHOLOGY Routine 02/26/2021 5:10 PM EDT SURGICAL PATHOLOGY REPORT Routine 02/26/2021 4:53 PM EDT Colonoscopy, [address] ([id number]) 02/26/2021 4:28 PM EDT a repeat colonoscopy in two years from 02/22/19 COLONOSCOPY Routine 02/26/2021 4:21 PM EDT POCT GLUCOSE Routine 02/26/2021 3:42 PM EDT documented in this encounter Results * POCT Glucose (02/26/2021 5:51 PM EDT) Glucose, POC 160 65 - 199 mg/dL [facility] Comment: Supplemental ranges: <140 mg/dL before meals <180 mg/dL all other times of the day Blood specimen (specimen) 02/26/2021 5:51 PM EDT 02/26/2021 12:00 PM EDT L Karthik Barlow MD POINT OF CARE TEST O CEE Performing Organization Address [facility] Co de Phone Number [facility] [place] [address] * Specimen to Pathology (02/26/2021 5:10 PM EDT) AP Specimen 02/26/2021 5:10 PM EDT 02/26/2021 5:10 PM EDT Narrative [facility] - 02/26/2021 5:10 PM EDT Specimen requisition ordered. ??Separate Pathology report to follow L Karthik Barlow MD PATHOLOGY/CYTOLOGY O CEE Performing Organization Address City/[facility]/ZIP Co de Phone Number [facility] [place] [address] * Specimen to Pathology (02/26/2021 5:10 PM EDT) AP Specimen 02/26/2021 5:10 PM EDT 02/26/2021 5:10 PM EDT Narrative [facility] - 02/26/2021 5:10 PM EDT Specimen requisition ordered. ??Separate Pathology report to follow L Karthik Barlow MD PATHOLOGY/CYTOLOGY O CEE [facility] [place] [address] * Specimen to Pathology (02/26/2021 5:10 PM EDT) AP Specimen 02/26/2021 5:10 PM EDT 02/26/2021 5:10 PM EDT Narrative [facility] - 02/26/2021 5:10 PM EDT Specimen requisition ordered. ??Separate Pathology report to follow L Karthik Barlow MD PATHOLOGY/CYTOLOGY O RDERABLES Performing Organization Address [facility] Co de Phone Number [facility] [place] [address] * Surgical Pathology Report (02/26/2021 4:53 PM EDT) Final Diagnosis [id number] ? Location: 4T; 08; A The signing [...] [facility] Dept. of Pathology, [place], [place] SPECIMEN(S) SUBMITTED A - right colon [...] labeled C1. ??shb 03/04/2021 4:33 PM EDT [facility] GI Biopsy 02/26/2021 4:53 PM EDT 02/26/2021 4:53 PM EDT GI Biopsy 02/26/2021 4:53 PM EDT 02/26/2021 4:53 PM EDT GI Biopsy 02/26/2021 4:53 PM EDT 02/26/2021 4:53 PM EDT L Karthik Barlow MD PATHOLOGY/CYTOLOGY O DANIELERAOMAR [facility] [place] [address] * COLONOSCOPY (02/26/2021 4:21 PM EDT) COLONOSCOPY [facility] Endoscopy ___ Procedure Date: 02/26/2021 4:21 PM ? Patient Name: Brian Rodriguez ? Date of : 1950 ? Age: 70 ? Order #: [id number] ? Instrument Name: [id number] ? ___ Procedure: ? Colonoscopy Indications: ? [...] preparation was evaluated using ? the BBPS ([place] Bowel Preparation ? Scale) with scores of: [...] Glucose, POC 128 65 - 199 mg/dL [facility] Comment: Supplemental ranges: <140 mg/dL before meals <180 mg/dL all other times of the day Blood specimen (specimen) 02/26/2021 3:42 PM EDT 02/26/2021 12:00 PM EDT Dion Barlow MD POINT OF CARE TEST O RDERABLES [facility] [place] [address] documented in this encounter Visit Diagnoses Not [...] RN) documented in this encounter Care Teams Council Member Relationship Specialty Start Date End Date Josue Wilkinson MD PCP - General General Internal Medicine 02/14/2107/26 documented as of this encounter
--- OUTSIDE RECORDS SUMMARY | 2024-07-15 13:38 | XMS_ITS | Encounter Summary ---
Author Organization [facility] Address [facility] [place] [address] Care Team Providers Care Director Of Physical Therapy Name Role Phone Josue Wilkinson MD Primary Care Provider [phone] Encounter Details Date Type Department Care Team (Latest Contact Info) Description 04/29/2021 9:00 AM EDT Office [place] [address] Marcelle Weinberg, JAZMINE [facility] [place] [address] Left sided colitis without complications Social History [...] encounter Progress Notes * Marcelle Weinberg C, CASE MAKING MACHINE OPERATOR - 04/29/2021 9:00 AM EDT Primary care [...] Overview Note: ? Colonoscopy 04/08/10 (Dr. Gomes [facility]) - inflammation only within the rectum and sigmoid; extent of the exam was to the hepatic flexure; biopsies proximal to the sigmoid nl ?? Repeat exam 11/27/11 ([facility]): mildly active colitis [...] Ref Range Status ??? COLONOSCOPY 02/26/2021 Final Value:[facility] Endoscopy Procedure Date: 02/26/2021 4:21 PM Patient Name: Brian Rodriguez Date of : 1950 Age: 70 Order #: [id number] Instrument Name: [id number] Procedure: Colonoscopy Indications: High risk colon cancer [...] bowel preparation was evaluated using the BBPS ([place] Bowel Preparation Scale) with scores of: Right [...] Final ??? Surgical Pathology Report 02/26/2021 Final Value:[id number] Location: 4T; EA08; A The signing pathologist [...] MD Verified: 03/04/2021 16:33 Pathologist Performed at: -[facility] Dept. of Pathology, [place], [place] SPECIMEN(S) SUBMITTED A - right colon [...] Disease Center Section of Gastroenterology [place] [address] documented in this encounter Plan of Treatment Upcoming Encounters Date Type Department Care Team (Late st Contact Info) Description 08/15/2024 9:00 AM EDT Office [place] [address] Dion Barlow MD [facility] [place] [address] 09/01/2024 9:40 AM EDT Office Visit Cardiology at [address] [place] [phone] Franky Shaver MD [facility] [place] [address] 09/01/2024 11:20 AM EDT Office Visit Dermatology at [facility] [address] [place] [address] Gómez Mercer MD [facility] DR [place] [address] 09/21/2024 2:45 PM EDT Office Visit Pain and Spine Center at [facility] [place] [address] Trung Hoyos MD [facility] [place] [address] documented as of this encounter Procedures Procedure [...] 10:22 AM EDT) Neutrophil % 65.3 % [facility] Neutrophil Absolute 3.34 1.70 - 6.10 x10(3)/ L [facility] Lymph % 23.0 % [facility] Lymphocytes Abs 1.2 0.9 - 3.2 x10(3)/ L [facility] Monocyte % 6.6 % [facility] Monocyte Abs 0.3 0.3 - 0.9 x10(3)/mc L [facility] Eos % 2.9 % [facility] Eosinophils Abs 0.2 0.0 - 0.4 x10(3)/[facility] Basophil % 1.0 % [facility] Baso Absolute 0.0 0.0 - 0.1 x10(3)/[facility] Immature Gran % 1.20 % [facility] Comment: Immature granulocytes(IG's)percentage and absolute count will include metamyelocytes, myelocytes, and promyelocytes. Blood smears from CBCs yielding IG's will be scanned manually for concordance. If this scan disagrees with the automated IG or if promyelocytes are noted, a manual differential will be performed. Immature Gran Absolute 0.06(H) 0.00 - 0.04 x10(3)/ L [facility] Blood 04/29/2021 10:2 2 AM EDT 04/29/2021 10:29 AM EDT Narrative Resulting Agency Comment Spec In Lab Marcelle Weinberg CASE MAKING MACHINE OPERATOR HEMATOLOGY ORDERA BLES [facility] [place] [address] * (ABNORMAL) Hemogram (04/29/2021 10:22 AM EDT) White Blood Cell 5.1 4.0 - 9.5 x10(3)/ L [facility] Red Blood Cell 3.78(L) 4.58 - 5.54 x10(6)/mc L [facility] Hemoglobin 12.4(L) 13.7 - 16.5 gm/dL [facility] Hematocrit 37.8(L) 40.5 - 48.5 % [facility] Mean Cell Volume 100.0(H) 82.9 - 93.1 fL [facility] Mean Cell Hemoglobin 32.8(H) 27.5 - 32.1 pg [facility] Mean Cell Hemoglobin Concentration 32.8 32.0 - 35.7 gm/dL [facility] Platelet 196 145 - 357 x10(3)/mc L [facility] RDW Standard Deviation 45.1(H) 36.0 - 45.0 [facility] RDW coefficient of variation 12.2 11.4 - 13.8 % [facility] Mean Platelet Volume 11.5 7.6 - 12.9 [facility] NRBC% auto 0.0 % [facility] NRBC Absolute 0.000 0.000 - 0.000 x10(3)/mc L [facility] Blood 04/29/2021 10:2 2 AM EDT 04/29/2021 10:29 AM EDT Narrative Resulting Agency Comment Spec In Lab Marcelle Weinberg APRN HEMATOLOGY ORDERA BLES [facility] [place] [address] * CRP, acute inflammation (04/29/2021 10:22 AM EDT) C-Reactive Protein <3.0 <=4.9 mg/L [facility] Blood 04/29/2021 10:2 2 AM EDT 04/29/2021 10:29 AM EDT Narrative Resulting Agency Comment Spec In Lab Marcelle Weinberg CASE MAKING MACHINE OPERATOR CHEMISTRY ORDERAB LES Performing Organization Address [facility]/ZIP Co de Phone Number [facility] [place] [address] * Sedimentation rate (04/29/2021 10:22 AM EDT) Sedimentation Rate Automated 32 3 - 46 mm/hr [facility] [...] APRN HEMATOLOGY ORDERA BLES Performing Organization Address [facility] Co de Phone Number [facility] [place] [address] * (ABNORMAL) Comprehensive metabolic panel (non-fasting) (04/29/2021 10:22 AM EDT) Glucose 130 65 - 199 mg/dL [facility] Comment:Diabetes: >=200 mg/d L plus symptoms Blood Urea Nitrogen 21(H) 10 - 20 mg/dL [facility] Creatinine 1.14 0.80 - 1.50 mg/dL [facility] Sodium 142 135 - 145 mmol/L [facility] Potassium 4.4 3.5 - 5.0 mmol/L [facility] Comment: Please note: ??Patients with WBC >100,000 may have falsely elevated Potassium levels. ??For accurate Potassium quantification in these patients send serum separator tube (gold top) for subsequent determinations. ??Contact the Clinical Chemistry Laboratory if there are any questions. Chloride 107 98 - 107 mmol/L [facility] Carbon Dioxide 25 22 - 31 mmol/L [facility] Anion Gap 10 5 - 15 mmol/L [facility] Calcium 10.0 8.5 - 10.5 mg/dL [facility] Protein, Total 8.0 6.1 - 8.0 gm/dL [facility] Albumin 4.4 3.2 - 5.2 gm/dL [facility] Aspartate Aminotransferase 14 0 - 39 unit/L [facility] Alanine Aminotransferase 16 0 - 55 unit/L [facility] Alkaline Phosphatase 68 40 - 130 unit/L [facility] Bilirubin, Total 0.3 0.2 - 1.3 mg/dL [facility] Est Glomerular Filtration Rate 64 >=60 mL/min/1. 73 m?? [facility] [...] Agency Comment Spec In Lab Marcelle Weinberg CASE MAKING MACHINE OPERATOR CHEMISTRY ORDERAB LES Performing Organization Address City/State/[facility] Co de Phone Number [facility] [place] [address] documented in this encounter Visit Diagnoses Diagnosis Left sided colitis without complications Left sided ulcerative (chronic) colitis documented in this encounter Care Teams Director Of Physical Therapy Relationship Specialty Start Date End Date Josue Wilkinson MD PCP - General General Internal Medicine 02/14/21 9/ documented as of this encounter
--- OUTSIDE RECORDS SUMMARY | 2024-07-15 13:38 | XMS_ITS | Encounter Summary ---
Author Organization [facility] [place] [address] Care Team Providers Care Personal Computer Specialist Name Role Phone Maximilian Fall MD Primary Care Provider Reason for Visit * Reason Onset Date Comments Reminder Appointment 03/20/2020 Encounter Details Date Type Department Care Team (Late st Contact Info) Description 03/20/2020 [place] [address] Kinjal Durham CMA GASTROENTEROLOGY DEPT Reminder Appointment [...] Miscellaneous Notes * Telephone Encounter - Kinjal uDrham CMA - 03/20/2020 9:55 AM EDT Called patient to review medications and allergies for their upcoming gastroenterology Type of Appointment: Phone appointment. Reach Patient during MA Check: Yes Notes for the provider: Notes for the nurse: documented in this encounter Plan of Treatment Upcoming Encounters Date Type Department Care Team (Late st Contact Info) Description 08/15/2024 9:00 AM EDT Office [place] [address] Dion Barlow MD [facility] [place] [address] 09/01/2024 9:40 AM EDT Office Visit Cardiology at [address] [place] [address] Franky Shaver MD [facility] [place] [address] 09/01/2024 11:20 AM EDT Office Visit Dermatology at [facility] [address] [place] [phone] Gómez Mercer MD [facility] [place] [address] 09/21/2024 2:45 PM EDT Office Visit [place] [phone] Trung Hoyos MD [facility] [place] [address] documented as of this encounter Visit Diagnoses Not on filedocumented in this encounter Care Teams Personal Computer Specialist Relationship Specialty Start Date End Date Maximilian Fall MD [address] [facility] [address] [place] [address] PCP - General 10/01/11 02/13/21 documented as of this encounter
--- OUTSIDE RECORDS SUMMARY | 2024-07-15 13:38 | XMS_ITS | Encounter Summary ---
Author Organization [facility] [place] [address] Care Team Providers Care Magnetic Healer Name Role Phone Maximilian Fall MD Primary Care Provider Reason for Visit * Reason Onset Date Comments Medication Refill 06/27/2019 Encounter Details Date Type Department Care Team (Late st Contact Info) Description 06/27/2019 Ref[place] [address] Sophia Coleman, CCMA Social History Tobacco Use [...] 9:00 AM EDT Office [place] [phone] Dion Barlow MD [facility] [place] [address] 09/01/2024 9:40 AM EDT Office Visit Cardiology at [address] [phone] Franky Shaver MD [facility] [place] [address] 09/01/2024 11:20 AM EDT Office Visit Dermatology at [facility] [address] [place] [address] Gómez Mercer MD [facility] DR EDDIE [place] [address] 09/21/2024 2:45 PM EDT Office Visit Pain and Spine Center at [facility] [place] [address] Trung Hoyos MD [facility] [place] [address] documented as of this encounter Visit Diagnoses Not on filedocumented in this encounter Care Teams Magnetic Healer Relationship Specialty Start Date End Date Maximilian Fall MD [address] [place] [address] PCP - General 10/01/11 02/13/21 documented as of this encounter
--- OUTSIDE RECORDS SUMMARY | 2024-07-15 13:38 | XMS_ITS | Encounter Summary ---
Author Organization [facility] Address [facility] [place] [address] Care Team Providers Care Putty Worker Name Role Phone Maximilian Fall MD Primary Care Provider [phone] Encounter Details Date Type Department Care Team (Late st Contact Info) Description 04/28/2019 4:15 PM EDT - 04/28/2019 4:45 PM EDT [place] [address] Iza Coates MD [facility] [place] [address] EGD, UPPER GI ENDOSCOPY (WRVU 2.09) Social [...] Care Everywhere. * EGD (Upper Endoscopy): Post-op (Gambian) documented in this encounter Medications at Time of Discharge Medication Sig Dispensed Refills Start Date End Date tamsulosin (FLOMAX) 0.4 mg Capsule, Sust. Release [...] PROPHYLAXIS 0 04/06/2017 07/04/2024 budesonide 2 mg/actuation Foam Place 2 mg [...] sedation) Iza Coates MD Gastroenterology attending Pager [phone] documented in this encounter Plan of Treatment Upcoming Encounters Date Type Department Care Team (Late st Contact Info) Description 08/15/2024 9:00 AM EDT Office [place] [address] Dion Barlow MD [facility] [place] [address] 09/01/2024 9:40 AM EDT Office Visit Cardiology at [address] [phone] Franky Shaver MD [facility] [place] [address] 09/01/2024 11:20 AM EDT Office Visit Dermatology at [facility] [address] [place] [address] Gómez Mercer MD [facility] DR EDDIE [place] [address] 09/21/2024 2:45 PM EDT Office Visit Pain and Spine Center at [facility] [place] [phone] Trung Hoyos MD [facility] [place] [address] documented as of this encounter Procedures Procedure [...] 5:03 PM EDT 04/28/2019 5:03 PM EDT [facility] - 04/28/2019 5:03 PM EDT Specimen requisition ordered. ??Separate Pathology report to follow Iza Coates MD PATHOLOGY/CYTOLOG Y ORDERABLES Performing Organization Address [facility] Co de Phone Number [facility] [place] [address] * Specimen to Pathology (04/28/2019 5:03 PM EDT) AP Specimen 04/28/2019 5:03 PM EDT 04/28/2019 5:03 PM EDT Narrative [facility] - 04/28/2019 5:03 PM EDT Specimen requisition ordered. ??Separate Pathology report to follow Iza Coates MD PATHOLOGY/CYTOLOG Y ORDERABLES Performing Organization Address [facility] [place] [address] * Surgical Pathology Report (04/28/2019 4:50 PM EDT) Final Diagnosis [id number] ? Location: 4T; EA10; A The signing pathologist has (i) examined the relevant preparation(s) for the specimen(s) and (ii) rendered or confirmed the diagnosis(es). . ?Surgical Pathology DIAGNOSIS A - Random duodenum, biopsy: Duodenal mucosa within normal limits, including preserved villous architecture. B - Fundic gland, polypectomy: Gastric fundic gland polyp. Electronically signed by: ??Joana Soler MD Verified: ??05/02/2019 ?Pathologist Performed at: ??-[facility] Dept. of Pathology, [place], [place] CLINICAL INFORMATION Specimen Submitted: A - [...] labeled B1. ??ejr 05/02/2019 4:02 PM EDT [facility] GI Biopsy 04/28/2019 4:50 PM EDT 04/28/2019 4:50 PM EDT GI Biopsy 04/28/2019 4:50 PM EDT 04/28/2019 4:50 PM EDT Iza Coates MD PATHOLOGY/CYTOLOG Y ORDERABLES [facility] [place] [address] * UPPER GI ENDOSCOPY (04/28/2019 4:39 PM EDT) UPPER GI ENDOSCOPY [facility] Endoscopy Procedure Date: 04/28/2019 4:39 PM ? Patient Name: Brian Rodriguez ? Date of : 1950 ? Age: 68 ? Order #: [id number] ? Instrument Name: [id number] ? Procedure: ? Upper GI endoscopy Indications: ? Abnormal CT of the GI tract (duodenal ? thickening) Providers: ? Iza Coates MD, Nohemi Ball, ? RN, Jonathan Ko, Transitions Manager Referring MD: ?Maximilian Fall MD Requesting [...] Glucose, POC 91 65 - 199 mg/dL [facility] Comment: Supplemental ranges: <140 mg/dL before meals <180 mg/dL all other times of the day Blood specimen (specimen) 04/28/2019 3:46 PM EDT 04/28/2019 3:46 PM EDT Iza Coates MD POINT OF CARE KISHOR T ORDERABLES Performing Organization Address [facility] Co de Phone Number [facility] [place] [address] documented in this encounter Visit Diagnoses Diagnosis [...] RN) documented in this encounter Care Teams Putty Worker Relationship Specialty Start Date End Date Maximilian Fall MD [address] [place] [address] PCP - General 10/01/11 02/13/21 documented as of this encounter
--- OUTSIDE RECORDS SUMMARY | 2024-07-15 13:38 | XMS_ITS | Encounter Summary ---
[place] [address] Care Team Providers Care Loom Setter Name Role Phone Maximilian Fall MD Primary Care Provider [phone] Encounter Details Date Type Department Care Team (Late st Contact Info) Description 01/17/2021 Telephone [place] [phone] César Garcia Social History Tobacco Use Types [...] - 01/17/2021 1:33 PM EST Brian Rodriguez [id number] Diagnosis/Indication: a repeat colonoscopy in two years [...] 9:00 AM EDT Office [place] [address] Dion Barlow MD [facility] [place] [address] 09/01/2024 9:40 AM EDT Office Visit Cardiology at [address] [phone] Franky Shaver MD [facility] [place] [address] 09/01/2024 11:20 AM EDT Office Visit Dermatology at [place] [address] [place] [address] Gómez Mercer MD [facility] DR EDDIE [place] [address] 09/21/2024 2:45 PM EDT Office Visit Pain and Spine Center at [facility] [place] [phone] Trung Hoyos MD [facility] [place] [address] documented as of this encounter Visit Diagnoses Not on filedocumented in this encounter Care Teams Loom Setter Relationship Specialty Start Date End Date Maximilian Fall MD [address] [place] [address] PCP - General 10/01/11 02/13/21 documented as of this encounter
--- OUTSIDE RECORDS SUMMARY | 2024-07-15 13:38 | XMS_ITS | Encounter Summary ---
[place] [address] Care Team Providers Care Pipe Foreman Name Role Phone Deacon Watters APRN Primary Care Provider [phone] Encounter Details Date Type Department Care Team (Late st Contact Info) Description 02/26/2022 Telephone [place] [phone] Erika Armas Social History Tobacco Use Types [...] - 02/26/2022 1:04 PM EDT Brian Rodriguez [id number] Diagnosis/Indication: UC, restage disease and for surveillance [...] to patient: You must have a responsible libertarian who [...] 9:00 AM EDT Office Visit [place] [address] Dion Barlow MD [facility] [place] [address] 09/01/2024 9:40 AM EDT Office Visit Cardiology at [address] [phone] Franky Shaver MD [facility] [place] [address] 09/01/2024 11:20 AM EDT Office Visit Dermatology at [facility] [address] [place] [address] Gómez Mercer MD [facility] DR EDDIE [place] [address] 09/21/2024 2:45 PM EDT Office Visit Pain and Spine Center at [facility] [place] [phone] Trung Hoyos MD [facility] [place] [address] documented as of this encounter Visit Diagnoses Not on filedocumented in this encounter Care Teams Pipe Foreman Relationship Specialty Start Date End Date Deacon Watters APRN [address] [place] [address] PCP - General Family Medicine 02/17/22 documented as of this encounter
--- OUTSIDE RECORDS SUMMARY | 2024-07-15 13:38 | XMS_ITS | Encounter Summary ---
Author Organization [facility] Address [facility] [place] [address] Care Team Providers Care Certified Nurse Operating Room Name Role Phone Deacon Watters APRN Primary Care Provider [phone] Encounter Details Date Type Department Care Team (Late st Contact Info) Description 03/28/2022 3:15 PM EDT - 03/28/2022 4:00 PM EDT Surgery [place] [address] Mona Turner MD [facility] [place] [address] COLONOSCOPY FLEXIBLE, WITH BX (WRVU 3.56) Social [...] occurs, please contact your Doctor. Please call [phone] before 8pm Mon-Fri with problems, questions or concerns. If you call after 8pm or on weekends, call the Hospital at [phone] and ask to speak to the Combine Driver oral and maxillofacial surgeon and the screw machine operator will contact that person for you. When should you call for help? Call 152 anytime you think you may need emergency [...] any problems. Where can you learn more? [facility] View your After Visit Summary and more online at [email or web address] If you would like to provide feedback [...] cost to you. Content Version: 12.2 ?? 8065-6395 [employer]. Care instructions adapted under license by [facility]. If you have questions about a medical condition or this instruction, always ask your healthcare professional. [employer] disclaims any warranty or liability for your [...] 9:00 AM EDT Office Visit [place] [phone] Dion Barlow MD [facility] [place] [address] 09/01/2024 9:40 AM EDT Office Visit Cardiology at [address] [phone] Franky Shaver MD [facility] [place] [address] 09/01/2024 11:20 AM EDT Office Visit Dermatology at [address] [address] Gómez Mercer MD [facility] DR EDDIE [place] [address] 09/21/2024 2:45 PM EDT Office Visit Pain [place] [phone] Trung Hoyos MD [facility] [place] [address] documented as of this encounter Procedures Procedure Name Priority Date/Time Associated Diagnosis Comments SURGICAL PATHOLOGY REPORT Routine 03/28/2022 4:22 PM EDT SPECIMEN TO PATHOLOGY Routine 03/28/2022 4:22 PM EDT SPECIMEN TO PATHOLOGY Routine 03/28/2022 4:22 PM EDT SPECIMEN TO PATHOLOGY Routine 03/28/2022 4:22 PM EDT Colonoscopy, Biopsy ([id number]) 03/28/2022 3:30 PM EDT Other ulcerative colitis with rectal bleeding COLONOSCOPY Routine 03/28/2022 3:15 PM EDT documented in this encounter Results * Surgical Pathology Report (03/28/2022 4:22 PM EDT) Final Diagnosis [id number] ? Location: 4T; 12; A The signing [...] Christina Verified: ??04/03/2022 15:08 ??Pathologist Performed at: ??-[facility] Dept. of Pathology, [place], [place] SPECIMEN(S) SUBMITTED A - Sigmoid bx, [...] labeled C1. ??shb 04/03/2022 3:08 PM EDT [facility] GI Biopsy 03/28/2022 4:22 PM EDT 03/28/2022 4:22 PM EDT GI Biopsy 03/28/2022 4:22 PM EDT 03/28/2022 4:22 PM EDT GI Biopsy 03/28/2022 4:22 PM EDT 03/28/2022 4:22 PM EDT Mona Turner MD PATHOLOGY/CYTOLOGY O CEE [facility] [place] [address] * Specimen to Pathology (03/28/2022 4:22 PM EDT) AP Specimen 03/28/2022 4:22 PM EDT 03/28/2022 4:22 PM EDT Narrative [facility] - 03/28/2022 4:22 PM EDT Specimen requisition ordered. ??Separate Pathology report to follow Mona Turner MD PATHOLOGY/CYTOLOGY O CEE [facility] [place] [address] * Specimen to Pathology (03/28/2022 4:22 PM EDT) AP Specimen 03/28/2022 4:22 PM EDT 03/28/2022 4:22 PM EDT Narrative [facility] - 03/28/2022 4:22 PM EDT Specimen requisition ordered. ??Separate Pathology report to follow Mona Turner MD PATHOLOGY/CYTOLOGY O CEE Performing Organization Address [facility] [place] [address] * Specimen to Pathology (03/28/2022 4:22 PM EDT) AP Specimen 03/28/2022 4:22 PM EDT 03/28/2022 4:22 PM EDT Narrative [facility] - 03/28/2022 4:22 PM EDT Specimen requisition ordered. ??Separate Pathology report to follow Mona Turner MD PATHOLOGY/CYTOLOGY O CEE Performing Organization Address [facility] [place] [address] * COLONOSCOPY (03/28/2022 3:15 PM EDT) COLONOSCOPY [facility] Endoscopy Procedure Date: 03/28/2022 3:15 PM ? Patient Name: Brian Rodriguez ? N: [id number] ? Date of : 1950 ? Age: 71 ? Order #: [id number] ? Instrument Name: [id number] ? Procedure: ? Colonoscopy Indications: ? Follow-up of ulcerative colitis Providers: ? Mona Turner MD, April Augustine ? Cristela, RONY, Shay Maynard MD: ?LAnalia Barlow MD, Deacon Dior ? [place] Medicines: ? Midazolam 4 mg IV, Fentanyl [...] ? was evaluated using the BBPS ? ([place] Bowel Preparation Scale) ? with scores of: [...] Procedure Code(s): ? --- Professional --- ? 73311, Colonoscopy, flexible; with ? removal of tumor(s), polyp(s), or ? other lesion(s) by snare technique ? 43675, 59, Colonoscopy, flexible; ? with biopsy, single or multiple CPT copyright 2020 [employer]. All rights reserved. The codes documented in this report are preliminary and upon solar process engineer review may be revised to meet current [...] RN) documented in this encounter Care Teams Certified Nurse Operating Room Relationship Specialty Start Date End Date Deacon Watters, JAZMINE [address] [place] [address] [address] [place] [address] PCP - General Family Medicine 02/17/22 documented as of this encounter
--- OUTSIDE RECORDS SUMMARY | 2024-07-15 13:38 | XMS_ITS | Encounter Summary ---
Author Organization [facility] [place] [address] Care Team Providers Care Field Worker Name Role Phone Maximilian Fall MD Primary Care Provider [phone] Reason for Visit * Reason Onset Date Comments Medication Refill 12/11/2020 Encounter Details Date Type Department Care Team (Late st Contact Info) Description 12/11/2020 Refill [place] [phone] Dion Barlow MD [facility] [place] [address] Left sided colitis without complications Social History [...] 9:00 AM EDT Office [place] [phone] Dion Barlow MD [facility] [place] [address] 09/01/2024 9:40 AM EDT Office Visit Cardiology at [address] [place] [phone] Franky Shaver MD [facility] [place] [address] 09/01/2024 11:20 AM EDT Office Visit Dermatology at [facility] [address] [place] [phone] Gómez Mercer MD [facility] [address] 09/21/2024 2:45 PM EDT Office Visit [facility] [place] [address] Trung Hoyos MD [facility] [place] [address] documented as of this encounter Visit Diagnoses Diagnosis Left sided colitis without complications Left sided ulcerative (chronic) colitis documented in this encounter Care Teams Field Worker Relationship Specialty Start Date End Date Maximilian Fall MD [address] [facility] [address] [place] [address] PCP - General 10/01/11 02/13/21 documented as of this encounter
--- OUTSIDE RECORDS SUMMARY | 2024-07-15 13:38 | XMS_ITS | Encounter Summary ---
Author Organization [facility] Address [facility] [place] [address] Care Team Providers Care Wire Weaver Cloth Name Role Phone Josue Wilkinson MD Primary Care Provider [phone] Encounter Details Date Type Department Care Team (Late st Contact Info) Description 02/26/2021 4:00 PM EDT - 02/26/2021 5:00 PM EDT [place] [address] Dion Barlow MD [facility] [place] [address] COLONOSCOPY, POLYPECTOMY, REMOVAL LESION BY SNARE (WRVU [...] to be checked. Thursday-Thursday Same Day Endo [phone] Otherwise contact [phone] and ask to speak to the lance crewmember police matron Follow up care is a le part [...] 9:00 AM EDT Office [place] [phone] Dion Barlow MD [facility] [place] [place] [address] 09/01/2024 9:40 AM EDT Office Visit Cardiology at [address] [place] [address] Franky Shaver MD [facility] [place] [address] 09/01/2024 11:20 AM EDT Office Visit Dermatology at [facility] [address] [place] [address] Gómez Mercer MD [facility] [place] [address] 09/21/2024 2:45 PM EDT Office Visit [place] [address] Trung Hoyos MD [facility] [place] [address] documented as of this encounter Procedures Procedure Name Priority Date/Time Associated Diagnosis Comments POCT GLUCOSE Routine 02/26/2021 5:51 PM EDT SPECIMEN TO PATHOLOGY Routine 02/26/2021 5:10 PM EDT SPECIMEN TO PATHOLOGY Routine 02/26/2021 5:10 PM EDT SPECIMEN TO PATHOLOGY Routine 02/26/2021 5:10 PM EDT SURGICAL PATHOLOGY REPORT Routine 02/26/2021 4:53 PM EDT Colonoscopy, Remv Lesmary kay, Snare ([id number]) 02/26/2021 4:28 PM EDT a repeat colonoscopy in two years from 02/22/19 COLONOSCOPY Routine 02/26/2021 4:21 PM EDT POCT GLUCOSE Routine 02/26/2021 3:42 PM EDT documented in this encounter Results * POCT Glucose (02/26/2021 5:51 PM EDT) Glucose, POC 160 65 - 199 mg/dL [facility] Comment: Supplemental ranges: <140 mg/dL before meals <180 mg/dL all other times of the day Blood specimen (specimen) 02/26/2021 5:51 PM EDT 02/26/2021 12:00 PM EDT L Karthik Barlow MD POINT OF CARE TEST O CEE Performing Organization Address [facility]/ZIP Co de Phone Number [facility] [place] [address] * Specimen to Pathology (02/26/2021 5:10 PM EDT) AP Specimen 02/26/2021 5:10 PM EDT 02/26/2021 5:10 PM EDT Narrative [facility] - 02/26/2021 5:10 PM EDT Specimen requisition ordered. ??Separate Pathology report to follow L Karthik Barlow MD PATHOLOGY/CYTOLOGY O CEE Performing Organization Address City/[facility]/ZIP Co de Phone Number [facility] [place] [address] * Specimen to Pathology (02/26/2021 5:10 PM EDT) AP Specimen 02/26/2021 5:10 PM EDT 02/26/2021 5:10 PM EDT Narrative [facility] - 02/26/2021 5:10 PM EDT Specimen requisition ordered. ??Separate Pathology report to follow L Karthik Barlow MD PATHOLOGY/CYTOLOGY O CEE Performing Organization Address City/[facility]/ZIP Co de Phone Number [facility] [address] * Specimen to Pathology (02/26/2021 5:10 PM EDT) AP Specimen 02/26/2021 5:10 PM EDT 02/26/2021 5:10 PM EDT Narrative [facility] - 02/26/2021 5:10 PM EDT Specimen requisition ordered. ??Separate Pathology report to follow L Karthik Barlow MD PATHOLOGY/CYTOLOGY O CEE Performing Organization Address [facility] Co de Phone Number [facility] [address] * Surgical Pathology Report (02/26/2021 4:53 PM EDT) Final Diagnosis [id number] ? Location: 4T; EA08; A The signing [...] MD Verified: ??03/04/2021 16:33 ??Pathologist Performed at: ??-[facility] Dept. of Pathology, [place], [place] SPECIMEN(S) SUBMITTED A - right colon [...] labeled C1. ??shb 03/04/2021 4:33 PM EDT [facility] GI Biopsy 02/26/2021 4:53 PM EDT 02/26/2021 4:53 PM EDT GI Biopsy 02/26/2021 4:53 PM EDT 02/26/2021 4:53 PM EDT GI Biopsy 02/26/2021 4:53 PM EDT 02/26/2021 4:53 PM EDT L Karthik Barlow MD PATHOLOGY/CYTOLOGY O RDERABLES [facility] [place] [address] * COLONOSCOPY (02/26/2021 4:21 PM EDT) COLONOSCOPY [facility] Endoscopy ___ Procedure Date: 02/26/2021 4:21 PM ? Patient Name: Brian Rodriguez ? Date of : 1950 ? Age: 70 ? Order #: [id number] ? Instrument Name: [id number] ? ___ Procedure: ? Colonoscopy Indications: ? [...] preparation was evaluated using ? the BBPS ([place] Bowel Preparation ? Scale) with scores of: [...] Glucose, POC 128 65 - 199 mg/dL [facility] Comment: Supplemental ranges: <140 mg/dL before meals <180 mg/dL all other times of the day Blood specimen (specimen) 02/26/2021 3:42 PM EDT 02/26/2021 12:00 PM EDT Dion Barlow MD POINT OF CARE TEST O RDERABLES Performing Organization Address City/[facility]/ZIP Co de Phone Number [facility] [address] documented in this encounter Visit Diagnoses Not [...] RN) documented in this encounter Care Teams Wire Weaver Cloth Relationship Specialty Start Date End Date Josue Wilkinson MD PCP - General General Internal Medicine 02/14/2107/26 documented as of this encounter
--- OUTSIDE RECORDS SUMMARY | 2024-07-15 13:38 | XMS_ITS | Encounter Summary ---
Author Organization Count Includes [facility] Address [facility] [place] [address] Care Team Providers Care Clinical Training Coordinator Name Role Phone Unknown Primary Care Provider Unavailabl e Encounter Details Date Type Department Care Team (Latest Contact Info) Description 08/26/2021 9:30 AM EDT Office [place] [address] Dion Barlow MD [facility] [place] [address] Other ulcerative colitis with rectal bleeding; Left [...] manometry. - Obtain upper endoscopy report from [facility] in June 2021 - Avoid non-steroidal anti-inflammatory [...] ?? Colonoscopy 04/08/10 (Dr. Gomes [facility]) - inflammation only within the rectum and sigmoid; extent of the exam was to the hepatic flexure; biopsies proximal to the sigmoid nl ?? Repeat exam 11/27/11 ([facility]): mildly active colitis in the [...] dysphagia to solids. Had an EGD at [facility] in Jun and recalls was normal. No [...] manometry. - Obtain upper endoscopy report from [facility] in June 2021 - Avoid non-steroidal anti-inflammatory medications (NSAIDs) including but not limited to Advil, ibuprofen, Motrin, Aleve, Excedrin, naproxen, Mobic, indomethacin, and aspirin. Acetaminophen (Tylenol) is okay for aches and pains. - Follow-up in 6 months - will schedule colonoscopy at that time. I spent 30 min today reviewing the chart preparing for this visit, counseling the patient [id number] on the issues outlined above, and documenting an implementing the plan. Davina Barlow MD Senior Technical Trainerdirector sanitation bureau Co-Director, [facility] Section of Gastroenterology [place] [address] documented in this encounter Plan of Treatment Upcoming Encounters Date Type Department Care Team (Late st Contact Info) Description 08/15/2024 9:00 AM EDT Office [place] [address] Dion Barlow MD [facility] [place] [address] 09/01/2024 9:40 AM EDT Office Visit Cardiology at [address] [place] [address] Franky Shaver MD [facility] [place] [address] 09/01/2024 11:20 AM EDT Office Visit Dermatology at [facility] [address] [place] [phone] Gómez Mercer MD [facility] [place] [address] 09/21/2024 2:45 PM EDT Office Visit [place] [address] Trung Hoyos MD [facility] [place] [address] documented as of this encounter Visit Diagnoses Diagnosis Other ulcerative colitis with rectal bleeding Left sided colitis without complications Left sided ulcerative (chronic) colitis documented in this encounter Care Teams Clinical Training Coordinator Relationship Specialty Start Date End Date Unknown None PCP - General 08/23/21 02/16/22 documented as of this encounter
--- OUTSIDE RECORDS SUMMARY | 2024-07-15 13:38 | XMS_ITS | Encounter Summary ---
Author Organization [facility] Address [facility] [place] [address] Care Team Providers Care Patient Care Technician Instructor Name Role Phone Josue Wilkinson MD Primary Care Provider [phone] Encounter Details Date Type Department Care Team (Late st Contact Info) Description 04/30/2021 Telephone [place] [phone] Marcelle Weinberg APRN [facility] [place] [address] Social History Tobacco Use Types Packs/Day Years [...] 9:00 AM EDT Office Visit [place] [address] Dion Barlow MD [facility] [place] [address] 09/01/2024 9:40 AM EDT Office Visit Cardiology at [address] [address] Franky Shaver MD [facility] [place] [address] 09/01/2024 11:20 AM EDT Office Visit Dermatology at [address] [address] Gómez Mercer MD [facility] DR EDDIE SANCHEZ-DERMATOLOGY [place], [place] [address] 09/21/2024 2:45 PM EDT Office Visit [facility] [place] [address] Trung Hoyos MD [facility] [place] [address] documented as of this encounter Results * Vitamin B12 (05/31/2021 1:49 PM EDT) Vitamin B12 389 232 - 1,245 pg/mL [facility] Blood 05/31/2021 1:49 PM EDT 05/31/2021 1:52 PM EDT Narrative Resulting Agency Comment Spec In Lab Marcelle Weinberg POLICE SUPERINTENDENT CHEMISTRY ORDERAB LES [facility] [place] [address] * Iron and TIBC (05/31/2021 1:49 PM EDT) Iron 86 45 - 160 mcg/dL [facility] TIBC 286 250 - 450 mcg/dL [facility] Iron Saturation 30 20 - 50 % [facility] Blood 05/31/2021 1:49 PM EDT 05/31/2021 1:52 PM EDT Narrative Resulting Agency Comment Spec In Lab Marcelle Dunnjeovannyjania POLICE SUPERINTENDENT CHEMISTRY ORDERAB LES [facility] [place] [address] * Ferritin (05/31/2021 1:49 PM EDT) Ferritin 94 30 - 400 ng/mL [facility] Comment: Pediatric reference ranges not verified at [facility], interpret with caution. Reference ranges for females greater than 50 years of age approach values for men, i.e., 30-400 ng/mL. Blood 05/31/2021 1:49 PM EDT 05/31/2021 1:52 PM EDT Narrative Resulting Agency Comment Spec In Lab Marcelle Dunnjeovannyv POLICE SUPERINTENDENT CHEMISTRY ORDERAB LES [facility] [place] [address] documented in this encounter Visit Diagnoses Diagnosis Left sided colitis without complications Left sided ulcerative (chronic) colitis documented in this encounter Care Teams Patient Care Technician Instructor Relationship Specialty Start Date End Date Josue Wilkinson MD PCP - General General Internal Medicine 02/14/2107/26 documented as of this encounter
--- OUTSIDE RECORDS SUMMARY | 2024-07-15 13:38 | XMS_ITS | Encounter Summary ---
Author Organization [facility] Address [facility] [place] [address] Care Team Providers Care Detective Chief Name Role Phone Deacon Watters APRN Primary Care Provider [phone] Encounter Details Date Type Department Care Team (Late st Contact Info) Description 02/17/2022 9:30 AM EDT Office [place] [address] Marcelle Weinberg SPIRITUAL CARE COORDINATOR [facility] [place] [address] Other ulcerative colitis with rectal bleeding Social [...] Overview Note: ? Colonoscopy 04/08/10 (Dr. Gomes [facility]) - inflammation only within the rectum and [...] Final Recent endoscopic procedures 06/28/21 EGD ( [facility]): Pre op Dx; Dysphagia Post op DX: [...] Disease Center Section of Gastroenterology and Hepatology [address] [address] documented in this encounter Plan of Treatment Upcoming Encounters Date Type Department Care Team (Late st Contact Info) Description 08/15/2024 9:00 AM EDT Office [place] [address] Dion Barlow MD [facility] [place] [address] 09/01/2024 9:40 AM EDT Office Visit Cardiology at [address] [place] [address] Franky Shaver MD [facility] [place] [address] 09/01/2024 11:20 AM EDT Office Visit Dermatology at [facility] [address] [place] [address] Gómez Mercer MD [facility] DR EDDIE [place] [address] 09/21/2024 2:45 PM EDT Office Visit [facility] at [facility] [place] [address] Trung Hoyos MD [facility] [place] [address] Scheduled Orders Name Type Priority Associated Diagnoses [...] Comment Spec In Lab Marcelle Conte Dragwill SPIRITUAL CARE COORDINATOR BODY FLUIDS AND S TOOLS ORDERABLES Performing Organization Address City/State/[facility] Co de Phone Number [facility] [place] [address] * (ABNORMAL) Differential, Automated (02/17/2022 10:40 AM EDT) Neutrophil % 65.7 % [facility] Neutrophil Absolute 4.53 1.70 - 6.10 x10(3)/mc L [facility] Lymph % 22.8 % [facility] Lymphocytes Abs 1.6 0.9 - 3.2 x10(3)/mc L [facility] Monocyte % 7.3 % [facility] Monocyte Abs 0.5 0.3 - 0.9 x10(3)/mc L [facility] Eos % 2.6 % [facility] Eosinophils Abs 0.2 0.0 - 0.4 x10(3)/mc L [facility] Basophil % 0.6 % [facility] Baso Absolute 0.0 0.0 - 0.1 x10(3)/mc L [facility] Immature Gran % 1.00 % [facility] Comment: Immature granulocytes(IG's)percentage and absolute count will include metamyelocytes, myelocytes, and promyelocytes. Blood smears from CBCs yielding IG's will be scanned manually for concordance. If this scan disagrees with the automated IG or if promyelocytes are noted, a manual differential will be performed. Immature Gran Absolute 0.07(H) 0.00 - 0.04 x10(3)/ L [facility] Blood 02/17/2022 10:4 0 AM EDT 02/17/2022 10:50 AM EDT Narrative Resulting Agency Comment Spec In Lab Marcelle Conte Dg Weinberg SPIRITUAL CARE COORDINATOR HEMATOLOGY ORDERA BLES [facility] [place] [address] * (ABNORMAL) Hemogram (02/17/2022 10:40 AM EDT) White Blood Cell 6.9 4.0 - 9.5 x10(3)/[facility] Red Blood Cell 3.58(L) 4.58 - 5.54 x10(6)/ L [facility] Hemoglobin 11.5(L) 13.7 - 16.5 g/dL [facility] Hematocrit 35.1(L) 40.5 - 48.5 % [facility] Mean Cell Volume 98.0(H) 82.9 - 93.1 fL [facility] Mean Cell Hemoglobin 32.1 27.5 - 32.1 pg [facility] Mean Cell Hemoglobin Concentration 32.8 32.0 - 35.7 g/dL [facility] Platelet 220 145 - 357 x10(3)/ L [facility] RDW Standard Deviation 44.3 36.0 - 45.0 [facility] RDW coefficient of variation 12.3 11.4 - 13.8 % [facility] Mean Platelet Volume 10.5 7.6 - 12.9 [facility] LABORATORY NRBC% auto 0.0 % [facility] NRBC Absolute 0.000 0.000 - 0.000 x10(3)/mc L [facility] Blood 02/17/2022 10:4 0 AM EDT 02/17/2022 10:50 AM EDT Narrative Resulting Agency Comment Spec In Lab Marcelle Weinberg SPIRITUAL CARE COORDINATOR HEMATOLOGY ORDERA BLES Performing Organization Address City/[facility]/ZIP Co de Phone Number [facility] [place] [address] * (ABNORMAL) CRP, acute inflammation (02/17/2022 10:40 AM EDT) C-Reactive Protein 5.0(H) <=4.9 mg/L [facility] Blood 02/17/2022 10:4 0 AM EDT 02/17/2022 10:50 AM EDT Narrative Resulting Agency Comment Spec In Lab Marcelle Dunnjeovannyjania SPIRITUAL CARE COORDINATOR CHEMISTRY ORDERAB LES Performing Organization Address [facility] Co de Phone Number [facility] [place] [address] * (ABNORMAL) Sedimentation rate (02/17/2022 10:40 AM EDT) [facility] Sedimentation Rate Automated 64(H) 3 - 46 mm/hr [facility] Comment: Effective November 02, 2019 new capillary photometric technology has resulted in a change in reference ranges. It is recommended that each ESR result be reviewed with its own age appropriate reference range. Blood 02/17/2022 10:4 0 AM EDT 02/17/2022 10:50 AM EDT Narrative Resulting Agency Comment Spec In Lab Marcelle Weinberg SPIRITUAL CARE COORDINATOR HEMATOLOGY ORDERA BLES Performing Organization Address [facility]/ZIP Co de Phone Number [facility] [place] [address] * Comprehensive metabolic panel (non-fasting) (02/17/2022 10:40 AM EDT) Glucose 94 65 - 199 mg/dL [facility] Comment:Diabetes: >=200 mg/d L plus symptoms Blood Urea Nitrogen 14 10 - 20 mg/dL [facility] Creatinine 1.06 0.80 - 1.50 mg/dL [facility] Sodium 144 135 - 145 mmol/L [facility] Potassium 3.9 3.5 - 5.0 mmol/L [facility] Comment: Please note: ??Patients with WBC >100,000 may have falsely elevated Potassium levels. ??For accurate Potassium quantification in these patients send serum separator tube (gold top) for subsequent determinations. ??Contact the Clinical Chemistry Laboratory if there are any questions. Chloride 107 98 - 107 mmol/L [facility] Carbon Dioxide 26 22 - 31 mmol/L [facility] Anion Gap 11 5 - 15 mmol/L [facility] Calcium 9.7 8.5 - 10.5 mg/dL [facility] Protein, Total 8.0 6.1 - 8.0 g/dL [facility] Albumin 4.3 3.2 - 5.2 g/dL [facility] Aspartate Aminotransferase 10 0 - 39 unit/L [facility] Alanine Aminotransferase 17 0 - 55 unit/L [facility] Alkaline Phosphatase 78 40 - 130 unit/L [facility] Bilirubin, Total 0.4 0.2 - 1.3 mg/dL [facility] Est Glomerular Filtration Rate 69 >=60 mL/min/1. 73 m?? [facility] [...] Agency Comment Spec In Lab Marcelle Weinberg SPIRITUAL CARE COORDINATOR CHEMISTRY ORDERAB LES Performing Organization Address City/State/[facility] Co de Phone Number [facility] [place] [address] documented in this encounter Visit Diagnoses Diagnosis Other ulcerative colitis with rectal bleeding documented in this encounter Care Teams Detective Chief Relationship Specialty Start Date End Date Deacon Watters APRN [address] [place] [address] PCP - General Family Medicine 02/17/22 documented as of this encounter
--- OUTSIDE RECORDS SUMMARY | 2024-07-15 13:38 | XMS_ITS | Encounter Summary ---
Author Organization [facility] [address] Care Team Providers Care Plastic Surgery Coordinator Name Role Phone Maximilian Fall MD Primary Care Provider [phone] Reason for Visit * Reason Comments Medication Refill Encounter Details Date Type Department Care Team (Late st Contact Info) Description 09/03/2020 Refill [place] [address] Dion Barlow MD [facility] DR [place] [address] Social History Tobacco Use Types Packs/Day Years [...] Office [place] [address] Dion Barlow MD [facility] [place] [address] 09/01/2024 9:40 AM EDT Office Visit Cardiology at [address] [place] [address] Franky Shaver MD [facility] [place] [address] 09/01/2024 11:20 AM EDT Office Visit Dermatology at [facility] [address] [place] [address] Gómez Mercer MD [facility] DR EDDIE SANCHEZ-[place] [address] 09/21/2024 2:45 PM EDT Office Visit Pain [place] [address] Trung Hoyos MD [facility] PA[place] [address] documented as of this encounter Visit Diagnoses Not on filedocumented in this encounter Care Teams Plastic Surgery Coordinator Relationship Specialty Start Date End Date Maximilian Fall MD [address] [facility] 1 [place] [address] PCP - General 10/01/11 02/13/21 documented as of this encounter
--- OUTSIDE RECORDS SUMMARY | 2024-07-15 13:38 | XMS_ITS | Encounter Summary ---
Author Organization [facility] Address [facility] [place] [address] Care Team Providers Care Make Up Artist Name Role Phone Maximilian Fall MD Primary Care Provider [phone] Encounter Details Date Type Department Care Team (Latest Contact Info) Description 09/12/2019 3:40 PM EDT Office Visit [place] [phone] Dion Barlow MD [facility] [place] [address] Left sided colitis without complications Social History [...] IBD History: ?? Colonoscopy 04/08/10 (Dr. Gomes [facility]) - inflammation only within the rectum and sigmoid; extent of the exam was to the hepatic flexure; biopsies proximal to the sigmoid nl ?? Repeat exam 11/27/11 ([facility] [...] Final ??? UPPER GI ENDOSCOPY 04/28/2019 Final Value:[facility] Endoscopy Procedure Date: 04/28/2019 4:39 PM Patient Name: Brian Rodriguez Date of : 1950 Age: 68 Order #: [id number] Instrument Name: [id number] Procedure: Upper GI endoscopy Indications: Abnormal CT of the GI tract (duodenal thickening) Providers: Iza Coates MD, Nohemi Ball RN, Jonathan Ko, Parcel Post Weigher Referring MD: Maximilian Fall MD Requesting Provider: [...] PM ??? Surgical Pathology Report 04/28/2019 Final Value:[id number] Location: 4T; [facility]; A The signing pathologist has (i) examined the relevant preparation(s) for the specimen(s) and (ii) rendered or confirmed the diagnosis(es). . Surgical Pathology DIAGNOSIS A - Random duodenum, biopsy: Duodenal mucosa within normal limits, including preserved villous architecture. B - Fundic gland, polypectomy: Gastric fundic gland polyp. Electronically signed by: Joana Soler MD Verified: 05/02/2019 Pathologist Performed at: [place], [place], [place] CLINICAL INFORMATION Specimen Submitted: A - [...] patient. Anthony Hamlin MD [place] [address] ATTENDING ADDENDUM I interviewed and examined Brian [...] sulfasalazine. 15 min of this 20 min [id number]-[id number] visit was spent counseling the patient in the issues outlined above. Davina Barlow MD Mint Wafer Depositortree trimmer Co-Director, [facility] Diseases Center Section of Gastroenterology [place] [address] documented in this encounter Plan of Treatment Upcoming Encounters Date Type Department Care Team (Late st Contact Info) Description 08/15/2024 9:00 AM EDT Office Visit Gastroenterology at [place] [phone] Dion Barlow MD [facility] [place] [address] 09/01/2024 9:40 AM EDT Office Visit Cardiology at [address] [place] [address] Franky Shaver MD [facility] [place] [address] 09/01/2024 11:20 AM EDT Office Visit Dermatology at [place] [address] [place] [address] Gómez Mercer MD [facility] [place] [address] 09/21/2024 2:45 PM EDT Office Visit Pain [place] [address] Trung Hoyos MD [facility] [place] [address] documented as of this encounter Visit Diagnoses Diagnosis Left sided colitis without complications Left sided ulcerative (chronic) colitis documented in this encounter Care Teams Make Up Artist Relationship Specialty Start Date End Date Maximilian Fall MD [address] [facility] 1 [place] [address] PCP - General 10/01/11 02/13/21 documented as of this encounter
--- OUTSIDE RECORDS SUMMARY | 2024-07-15 13:38 | XMS_ITS | Encounter Summary ---
Author Organization [facility] Address [facility] [place] [address] Care Team Providers Care Natural Developer Name Role Phone Josue Wilkinson MD Primary Care Provider Encounter Details Date Type Department Care Team (Late st Contact Info) Description 04/16/2021 Telephone [place] [address] Mona Cherry Social History Tobacco Use Types [...] EDT Office [place] [address] Dion Barlow MD [facility] [place] [address] 09/01/2024 9:40 AM EDT Office Visit Cardiology at [address] [phone] Franky Shaver MD [facility] [place] [address] 09/01/2024 11:20 AM EDT Office Visit Dermatology at [facility] [address] [place] [address] Gómez Mercer MD [facility] [place] [address] 09/21/2024 2:45 PM EDT Office Visit Pain and Spine Center at [facility] [place] [address] Trung Hoyos MD [facility] [place] [address] documented as of this encounter Visit Diagnoses Not on filedocumented in this encounter Care Teams Natural Developer Relationship Specialty Start Date End Date Josue Wilkinson MD PCP - General General Internal Medicine 02/14/21 9/3 documented as of this encounter
--- OUTSIDE RECORDS SUMMARY | 2024-07-15 13:38 | XMS_ITS | Encounter Summary ---
Author Organization [facility] [place] [address] Care Team Providers Care Deck Molder Name Role Phone Maximilian Fall MD Primary Care Provider [phone] Encounter Details Date Type Department Care Team (Latest Contact Info) Description 04/25/2019 12:15 PM EDT Ancillary Procedure Radiology [place] [phone] Marcelle Weinberg, JAZMINE [facility] [place] [address] Left sided colitis without complications Social History [...] 9:00 AM EDT Office Visit [place] [address] Dion Barlow MD [facility] [place] [address] 09/01/2024 9:40 AM EDT Office Visit Cardiology at [address] [place] [address] Franky Shaver MD [facility] [place] [address] 09/01/2024 11:20 AM EDT Office Visit Dermatology at [facility] [address] [place] [address] Gómez Mercer MD [facility] [place] [address] 09/21/2024 2:45 PM EDT Office Visit Pain and Spine Center at [facility] [place] [address] Trung Hoyos MD [facility] [place] [address] documented as of this encounter Visit Diagnoses Diagnosis Left sided colitis without complications Left sided ulcerative (chronic) colitis documented in this encounter Care Teams Deck Molder Relationship Specialty Start Date End Date Maximilian Fall MD [address] [facility] 1 [place] [address] PCP - General 10/01/11 02/13/21 documented as of this encounter
--- OUTSIDE RECORDS SUMMARY | 2024-07-15 13:38 | XMS_ITS | Encounter Summary ---
Author Organization [facility] [place] [address] Care Team Providers Care Bobbin Fixer Name Role Phone Josue Wilkinson MD Primary Care Provider [phone] Reason for Visit * Reason Onset Date Comments Medication Refill 05/06/2021 Encounter Details Date Type Department Care Team (Late st Contact Info) Description 05/06/2021 [place] [phone] Marcelle Weinberg, JAZMINE [facility] [place] [address] Social History Tobacco Use Types Packs/Day Years [...] 9:00 AM EDT Office [place] [address] Dion Barlow MD [facility] [place] [address] 09/01/2024 9:40 AM EDT Office Visit Cardiology at [address] [place] [address] Franky Shaver MD [facility] [place] [address] 09/01/2024 11:20 AM EDT Office Visit Dermatology at [facility] [address] [place] [address] Gómez Mercer MD [facility] [place] [address] 09/21/2024 2:45 PM EDT Office Visit [place] [address] Trung Hoyos MD [facility] [place] [address] documented as of this encounter Visit Diagnoses Not on filedocumented in this encounter Care Teams Bobbin Fixer Relationship Specialty Start Date End Date Josue Wilkinson MD PCP - General General Internal Medicine 02/14/21 9/3 documented as of this encounter
--- OUTSIDE RECORDS SUMMARY | 2024-07-15 13:38 | XMS_ITS | Encounter Summary ---
[place] [address] Care Team Providers Care Lining Inserter Name Role Phone Maximilian Fall MD Primary Care Provider [phone] Encounter Details Date Type Department Care Team (Late st Contact Info) Description 04/25/2019 Telephone [place] [address] Brandy Durham Social History Tobacco Use Types [...] conditions (especially heart or lung)?:asthma BMI:30.53 Prep:proclear Medical Reception Specialist?:yes Instructions to patient?:instructions to pt@4L/Exit~jhd documented in this encounter Plan of Treatment Upcoming Encounters Date Type Department Care Team (Late st Contact Info) Description 08/15/2024 9:00 AM EDT Office [place] [phone] Dion Barlow MD [facility] [place] [address] 09/01/2024 9:40 AM EDT Office Visit Cardiology at [address] [address] Franky Shaver MD [facility] [place] [address] 09/01/2024 11:20 AM EDT Office Visit Dermatology at [address] [place] [address] Gómez Mercer MD [facility] [place] [address] 09/21/2024 2:45 PM EDT Office Visit [place] [address] Trung Hoyos MD [facility] [place] [address] documented as of this encounter Visit Diagnoses Not on filedocumented in this encounter Care Teams Lining Inserter Relationship Specialty Start Date End Date Maximilian Fall MD [address] [facility] 1 [place] [address] PCP - General 10/01/11 02/13/21 documented as of this encounter
--- OUTSIDE RECORDS SUMMARY | 2024-07-15 13:38 | XMS_ITS | Encounter Summary ---
Author Organization [facility] [place] [address] Care Team Providers Care Security Assistant Name Role Phone Maximilian Fall MD Primary Care Provider Reason for Visit * Reason Onset Date Comments Medication Refill 02/16/2020 Encounter Details Date Type Department Care Team (Late st Contact Info) Description 02/16/2020 Refill [place] [address] Bethany Trivedi, RN Left sided colitis without [...] Office Visit [place] [address] Dion Barlow MD [facility] [place] [address] 09/01/2024 9:40 AM EDT Office Visit Cardiology at [address] [place] [address] Franky Shaver MD [facility] [place] [address] 09/01/2024 11:20 AM EDT Office Visit Dermatology at [address] [place] [address] Gómez Mercer MD [facility] DR EDDIE [place] [address] 09/21/2024 2:45 PM EDT Office Visit [facility] [place] [address] Trung Hoyos MD [facility] [place] [address] documented as of this encounter Visit Diagnoses Diagnosis Left sided colitis without complications Left sided ulcerative (chronic) colitis documented in this encounter Care Teams Security Assistant Relationship Specialty Start Date End Date Maximilian Fall MD [address] [place] [address] PCP - General 10/01/11 02/13/21 documented as of this encounter
--- OUTSIDE RECORDS SUMMARY | 2024-07-15 13:38 | XMS_ITS | Encounter Summary ---
[place] [address] Care Team Providers Care Certified Medical Technician Name Role Phone Deacon Watters APRN Primary Care Provider [phone] Encounter Details Date Type Department Care Team (Late st Contact Info) Description 02/26/2022 Telephone [place] [address] Dianna Shen RN Social History Tobacco Use [...] 9:00 AM EDT Office [place] [address] Dion Barlow MD [facility] [place] [place] [address] 09/01/2024 9:40 AM EDT Office Visit Cardiology at [address] [address] Franky Shaver MD [facility] [place] [address] 09/01/2024 11:20 AM EDT Office Visit Dermatology at [address] [address] Gómez Mercer MD [facility] DR EDDIE SANCHEZ-DERMATOLOGY [place], [place] [address] 09/21/2024 2:45 PM EDT Office Visit [place] [address] Trung Hoyos MD [facility] [place] [address] documented as of this encounter Visit Diagnoses Not on filedocumented in this encounter Care Teams Certified Medical Technician Relationship Specialty Start Date End Date Deacon Watters APRN [address] [place] [address] [address] [facility] 1 [place] [address] PCP - General Family Medicine 02/17/22 documented as of this encounter
--- OUTSIDE RECORDS SUMMARY | 2024-07-15 13:38 | XMS_ITS | Encounter Summary ---
Author Organization [facility] Address [facility] [place] [address] Care Team Providers Care Electronic Tech Name Role Phone DuongVeliakip Wells APRN Primary Care Provider [phone] Encounter Details Date Type Department Care Team (Late st Contact Info) Description 02/26/2022 Orders [place] [phone] Dianna Shen, RN Other ulcerative colitis with [...] EDT Office [place] [phone] Dion Barlow MD [facility] [place] [address] 09/01/2024 9:40 AM EDT Office Visit Cardiology at [address] [phone] Franky Shaver MD [facility] [place] [address] 09/01/2024 11:20 AM EDT Office Visit Dermatology at [facility] [address] [place] [address] Gómez Mercer MD [facility] [address] [place] [address] 09/21/2024 2:45 PM EDT Office Visit [facility] [place] [phone] Trung Hoyos MD [facility] [place] [address] documented as of this encounter Results * CRP, acute inflammation (09/29/2022 12:09 PM EST) Pathologist [facility] C-Reactive Protein <3.0 <=4.9 mg/L [facility] Blood 09/29/2022 12:0 9 PM EST 09/29/2022 12:15 PM EST Narrative Resulting Agency Comment Spec In Lab Marcelle Weinberg HOME PLANNING CONSULTANT SALESPERSON CHEMISTRY ORDERAB LES [facility] [place] [address] * Sedimentation rate (09/29/2022 12:09 PM EST) Sedimentation Rate Automated 38 3 - 46 mm/hr [facility] Comment: Effective November 02, 2019 new capillary photometric technology has resulted in a change in reference ranges. It is recommended that each ESR result be reviewed with its own age appropriate reference range. Blood 09/29/2022 12:0 9 PM EST 09/29/2022 12:15 PM EST Narrative Resulting Agency Comment Spec In Lab Marcelle Weinberg HOME PLANNING CONSULTANT SALESPERSON HEMATOLOGY ORDERA BLES [facility] [place] [address] documented in this encounter Visit Diagnoses Diagnosis Other ulcerative colitis with rectal bleeding documented in this encounter Care Teams Electronic Tech Relationship Specialty Start Date End Date Deacon Watters APRN [address] [place] [address] PCP - General Family Medicine 02/17/22 documented as of this encounter
--- OUTSIDE RECORDS SUMMARY | 2024-07-15 13:38 | XMS_ITS | Encounter Summary ---
Author Organization [facility] [place] [address] Care Team Providers Care Facility Rehab Director Name Role Phone Maximilian Fall MD Primary Care Provider [phone] Encounter Details Date Type Department Care Team (Late st Contact Info) Description 04/26/2019 Ancillary Procedure [place] [phone] Dion Barlow MD [facility] [place] [address] Social History Tobacco Use Types Packs/Day Years [...] 9:00 AM EDT Office Visit [place] [phone] Dion Barlow MD [facility] [place] [address] 09/01/2024 9:40 AM EDT Office Visit Cardiology at [address] [place] [address] Franky Shaver MD [facility] [place] [address] 09/01/2024 11:20 AM EDT Office Visit Dermatology at [facility] [address] [place] [phone] Gómez Mercer MD [facility] DR EDDIE [place] [address] 09/21/2024 2:45 PM EDT Office Visit [facility] [place] [address] Trung Hoyos MD [facility] [place] [address] documented as of this encounter Procedures Procedure Name Priority Date/Time Associated Diagnosis Comments FILM LIBRARY STORAGE ONLY CT ABDOMEN AND PELVIS Routine 04/26/2019 12:00 AM EDT documented in this encounter Results * Film Library- Storage Only CT Abdomen & Pelvis (04/26/2019 12:00 AM EDT) Narrative [facility] - 04/27/2019 3:22 AM EDT This exam is auto-finalizing. It's purpose is for storage only. L Karthik Barlow MD IMG FILM LIBRARY ORD ERABLES [place] documented in this encounter Visit Diagnoses Not on filedocumented in this encounter Care Teams Facility Rehab Director Relationship Specialty Start Date End Date Maximilian Fall MD [address] [place] [address] PCP - General 10/01/11 02/13/21 documented as of this encounter
--- OUTSIDE RECORDS SUMMARY | 2024-07-15 13:38 | XMS_ITS | Encounter Summary ---
Author Organization [facility] Address [facility] [place] [address] Care Team Providers Care Sales Representative Rural [employer] Name Role Phone Maximilian Fall MD Primary Care Provider [phone] Encounter Details Date Type Department Care Team (Latest Contact Info) Description 05/09/2019 10:20 AM EDT Office [place] [address] Dion Barlow MD [facility] [place] [address] Left sided colitis without complications Social History [...] ? Overview Note:? Colonoscopy 04/08/10 (Dr. Gomes [facility]) - inflammation only within the rectum and sigmoid; extent of the exam was to the hepatic flexure; biopsies proximal to the sigmoid nl ?? Repeat exam 11/27/11 ([facility] mildly active colitis in the sigmoid colon [...] needed 20 min of this 25 min [id number] visit was spent counseling the patient in the issues outlined above. Davina Barlow MD Security Sales Consultantchief catalyst operator Co-Director, [facility] Section of Gastroenterology [place] [address] documented in this encounter Plan of Treatment Upcoming Encounters Date Type Department Care Team (Late st Contact Info) Description 08/15/2024 9:00 AM EDT Office [place] [address] Dion Barlow MD [facility] [place] [address] 09/01/2024 9:40 AM EDT Office Visit Cardiology at [address] [place] [address] Franky Shaver MD [facility] [place] [address] 09/01/2024 11:20 AM EDT Office Visit Dermatology at [facility] [address] [place] [phone] Gómez Mercer MD [facility] [place] [address] 09/21/2024 2:45 PM EDT Office Visit Pain and Spine Center at [facility] [place] [address] Trung Hoyos MD [facility] [place] [address] documented as of this encounter Visit Diagnoses Diagnosis Left sided colitis without complications Left sided ulcerative (chronic) colitis documented in this encounter Care Teams Sales Representative Rural [employer] Relationship Specialty Start Date End Date Maximilian Fall MD [address] [place] [address] PCP - General 10/01/11 02/13/21 documented as of this encounter
--- OUTSIDE RECORDS SUMMARY | 2024-07-15 13:38 | XMS_ITS | Encounter Summary ---
Author Organization [facility] Address [facility] [place] [address] Care Team Providers Care Blind Aide Name Role Phone Maximilian Fall MD Primary Care Provider [phone] Encounter Details Date Type Department Care Team (Latest Contact Info) Description 04/28/2019 3:07 PM EDT - 04/28/2019 6:06 PM EDT Hospital Encounter [place] [address] Iza Coates MD [facility] [place] [address] Discharge Disposition: Home Social History Tobacco Use [...] Care Everywhere. * EGD (Upper Endoscopy): Post-op (German) documented in this encounter Medications at Time [...] sedation) Iza Coates MD Gastroenterology attending Pager [phone] documented in this encounter Plan of Treatment Upcoming Encounters Date Type Department Care Team (Late st Contact Info) Description 08/15/2024 9:00 AM EDT Office Visit [place] [address] Dion Barlow MD [facility] [place] [address] 09/01/2024 9:40 AM EDT Office Visit Cardiology at [address] [place] [address] Franky Shaver MD [facility] [place] [address] 09/01/2024 11:20 AM EDT Office Visit Dermatology at [facility] [address] [place] [address] Gómez Mercer MD [facility] [address] EDDIE [place] [address] 09/21/2024 2:45 PM EDT Office Visit Pain and Spine Center at [facility] [place] [address] Trung Hoyos MD [facility] [place] [address] documented as of this encounter Procedures Procedure [...] PM EDT 04/28/2019 5:03 PM EDT [facility] - 04/28/2019 5:03 PM EDT Specimen requisition ordered. ??Separate Pathology report to follow Iza Coates MD PATHOLOGY/CYTOLOG Y ORDERABLES [facility] [place] [address] * Specimen to Pathology (04/28/2019 5:03 PM EDT) AP Specimen 04/28/2019 5:03 PM EDT 04/28/2019 5:03 PM EDT Narrative [facility] - 04/28/2019 5:03 PM EDT Specimen requisition ordered. ??Separate Pathology report to follow Iza Coates MD PATHOLOGY/CYTOLOG Y ORDERABLES Performing Organization Address [facility] Co de Phone Number [facility] [place] [address] * Surgical Pathology Report (04/28/2019 4:50 PM EDT) Final Diagnosis [id number] ? Location: 4T; EA10; A The signing [...] [facility] Dept. of Pathology, [place], [place] CLINICAL INFORMATION Specimen Submitted: A - [...] EDT Iza Coates MD PATHOLOGY/CYTOLOG Y ORDERABLES [facility] [place] [address] * UPPER GI ENDOSCOPY (04/28/2019 4:39 PM EDT) UPPER GI ENDOSCOPY [facility] Endoscopy Procedure Date: 04/28/2019 4:39 PM ? Patient Name: Brian Rodriguez ? Date of : 1950 ? Age: 68 ? Order #: [id number] ? Instrument Name: [id number] ? Procedure: ? Upper GI endoscopy Indications: ? Abnormal CT of the GI tract (duodenal ? thickening) Providers: ? Iza Coates MD, Nohemi Ball, ? RN, Jonathan Ko, Screwhead Stoner And Polisher Referring MD: ?Maximilian Fall MD Requesting Provider: [...] GENERAL SURGICAL ORD ERABLES Performing Organization Address City/[facility] Co de Phone Number [employer] * POCT Glucose (04/28/2019 3:46 PM EDT) Glucose, POC 91 65 - 199 mg/dL [facility] Comment: Supplemental ranges: <140 mg/dL before meals <180 mg/dL all other times of the day Blood specimen (specimen) 04/28/2019 3:46 PM EDT 04/28/2019 3:46 PM EDT Iza Coates MD POINT OF CARE KISHOR T ORDERABLES Performing Organization Address [facility] de Phone Number [facility] [place] [address] documented in this encounter Visit Diagnoses Not [...] RN) documented in this encounter Care Teams Blind Aide Relationship Specialty Start Date End Date Maximilian Fall MD [address] [place] [address] PCP - General 10/01/11 02/13/21 documented as of this encounter
--- OUTSIDE RECORDS SUMMARY | 2024-07-15 13:39 | XMS_ITS | Encounter Summary ---
Author Organization [facility] [place] [address] Care Team Providers Care Nut Blanker Operator Name Role Phone Maximilian Fall MD Primary Care Provider [phone] Reason for Visit * Reason Onset Date Comments Medication Refill 02/18/2017 Encounter Details Date Type Department Care Team (Late st Contact Info) Description 02/18/2017 Refill [place] [address] Bethany Trivedi, RN Pain in right hip; [...] 9:00 AM EDT Office [place] [phone] Dion Barlow MD [facility] [place] [address] 09/01/2024 9:40 AM EDT Office Visit Cardiology at [address] [place] [phone] Franky Shaver MD [facility] [place] [address] 09/01/2024 11:20 AM EDT Office Visit Dermatology at [facility] [address] [place] [address] Gómez Mercer MD [facility] DR EDDIE [place] [address] 09/21/2024 2:45 PM EDT Office Visit [facility] [place] [phone] Trung Hoyos MD [facility] [place] [address] documented as of this encounter Visit Diagnoses Diagnosis Pain in right hip Pain in joint, pelvic region and thigh Chronic ulcerative enterocolitis, unspecified complication documented in this encounter Care Teams Nut Blanker Operator Relationship Specialty Start Date End Date Maximilian Fall MD [address] [place] [address] PCP - General 10/01/11 02/13/21 documented as of this encounter
--- OUTSIDE RECORDS SUMMARY | 2024-07-15 13:39 | XMS_ITS | Encounter Summary ---
Author Organization [facility] [place] [address] Care Team Providers Care Compound Machine Operator Name Role Phone Maximilian Fall MD Primary Care Provider [phone] Reason for Visit * Reason Onset Date Comments Prior Authorization 05/10/2018 Encounter Details Date Type Department Care Team (Late st Contact Info) Description 05/10/2018 Telephone [place] [address] Jarret Roa single corner cutter Social History Tobacco Use Types Packs/Day Years [...] x 4 weeks Insurance & Phone #: [employer] Part D ID #: [id number] Trialed (dosage, frequency): hydrocortisone enemas (causes nausea), sulfasalazine, canasa (caused pelvic pain), cortifoam (manufacturing shortage), Asacol, Rowasa, prednisone Diagnosis/ICD-10: 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 Notes: Submitted via CoverMyMeds Approved documented in this encounter Plan of Treatment Upcoming Encounters Date Type Department Care Team (Late st Contact Info) Description 08/15/2024 9:00 AM EDT Office [place] [address] Dion Barlow MD [facility] [place] [address] 09/01/2024 9:40 AM EDT Office Visit Cardiology at [address] [phone] Franky Shaver MD [facility] [place] [address] 09/01/2024 11:20 AM EDT Office Visit Dermatology at [place] [address] [place] [address] Gómez Mercer MD [facility] [place] [address] 09/21/2024 2:45 PM EDT Office Visit [facility] [place] [phone] Trung Hoyos MD [facility] [place] [address] documented as of this encounter Visit Diagnoses Not on filedocumented in this encounter Care Teams Compound Machine Operator Relationship Specialty Start Date End Date Maximilian Fall MD [address] [facility] [address] [place] [address] PCP - General 10/01/11 02/13/21 documented as of this encounter
--- OUTSIDE RECORDS SUMMARY | 2024-07-15 13:39 | XMS_ITS | Encounter Summary ---
Author Organization [facility] Address [facility] [place] [address] Care Team Providers Care Cash Specialist Name Role Phone Maximilian Fall MD Primary Care Provider [phone] Reason for Visit * Reason Comments Follow-up Encounter Details Date Type Department Care Team (Late st Contact Info) Description 05/11/2017 4:00 PM EDT Office [place] [address] Marcelle Weinberg, JAZMINE [facility] [place] [address] Ulcerative colitis without complications, unspecified location Social [...] Overview Note: ? Colonoscopy 04/08/10 (Dr. Gomes [facility]) - inflammation only within the rectum and sigmoid; extent of the exam was to the hepatic flexure; biopsies proximal to the sigmoid nl ?? Repeat exam 11/27/11 ([facility] mildly active colitis in the sigmoid colon [...] 3.66) performed by Dion Osullivan MD at [facility] ??? PRO COLONOSCOPY, DIAGNOSTIC 11/27/2011 COLONOSCOPY, DIAGNOSTIC performed by Dion OSULLIVAN at [facility] ??? PRO COLONOSCOPY, DIAGNOSTIC 07/13/2014 COLONOSCOPY, DIAGNOSTIC performed by Dion Osullivan MD at [facility] ??? PRO SIGMOIDOSCOPY, DIAGNOSTIC 03/16/2012 FLEXIBLE SIGMOIDOSCOPY performed by YUDI MALLOY at [facility] ??? UPPER GI ENDOSCOPY, EXAM 10/01/2012 UPPER GI ENDOSCOPY performed by Dion OSULLIVAN at [facility] Social History Social History ??? Marital [...] 1140 ?? Resulting lab: [facility]OVATION ?? Value: [facility] Endoscopy Procedure Date: 02/12/2017 11:40 AM ? Patient Name: Brian Rodriguez ? Date of : 1950 ? Age: 66 ? Order #: [id number] ? Instrument Name: [id number] ? Procedure: ? Colonoscopy Indications: ? High risk colon cancer surveillance: ?Ulcerative colitis Patient Profile: ? This is a 66 year old male. This ?patient has left-sided ulcerative ?colitis on sulfasalazine and ?Cortifoam and is experiencing mild ?symptoms. Providers: ? L. Karthik Osullivan MD, Vandana Love ?RONY Mckeon, Sonal Segura, ?Bi Specialist Referring MD: ?Maximilian Fall MD Medicines: ? [...] ?bowel preparation was evaluated using ?the BBPS ([place] Bowel Preparation ?Scale) with scores of: Right [...] 9:00 AM EDT Office [place] [address] Dion Osullivan MD [facility] [place] [address] 09/01/2024 9:40 AM EDT Office Visit Cardiology at [address] [phone] Franky Shaver MD [facility] [place] [address] 09/01/2024 11:20 AM EDT Office Visit Dermatology at [facility] [address] [place] [address] Gómez Mercer MD [facility] DR EDD[place] [address] 09/21/2024 2:45 PM EDT Office Visit [facility] Sp[facility] Center at [facility] [place] [phone] Trung Hoyos MD [facility] [place] [address] documented as of this encounter Procedures Procedure [...] 4:21 PM EDT) Neutrophil % 63.1 % [facility] Neutrophil Absolute 4.76 1.70 - 6.10 x10(3)/[facility] Lymph % 25.0 % [facility] Lymphocytes Abs 1.9 0.9 - 3.2 x10(3)/[facility] Monocyte % 7.6 % [facility] Monocyte Abs 0.6 0.3 - 0.9 x10(3)/[facility] Eos % 3.2 % [facility] Eosinophils Abs 0.2 0.0 - 0.4 x10(3)/[facility] Basophil % 0.7 % [facility] Baso Absolute 0.0 0.0 - 0.1 x10(3)/[facility] Immature Gran % 0.40 % [facility] Comment: Immature granulocytes(IG's)percentage and absolute count will include metamyelocytes, myelocytes, and promyelocytes. Blood smears from CBCs yielding IG's will be scanned manually for concordance. If this scan disagrees with the automated IG or if promyelocytes are noted, a manual differential will be performed. Immature Gran Absolute 0.03 0.00 - 0.04 x10(3)/[facility] Blood specimen (specimen) 05/11/2017 4:21 PM EDT 05/11/2017 4:29 PM EDT Narrative Resulting Agency Comment Spec In Lab Marcelle Weinberg APRN HEMATOLOGY ORDERA BLES [facility] [place] [address] * (ABNORMAL) Hemogram (05/11/2017 4:21 PM EDT) White Blood Cell 7.5 4.0 - 9.5 x10(3)/mc L [facility] Red Blood Cell 3.98(L) 4.58 - 5.54 x10(6)/ L [facility] Hemoglobin 13.1(L) 13.7 - 16.5 gm/dL [facility] Hematocrit 39.4(L) 40.5 - 48.5 % [facility] Mean Cell Volume 99.0(H) 82.9 - 93.1 fL [facility] Mean Cell Hemoglobin 32.9(H) 27.5 - 32.1 pg [facility] Mean Cell Hemoglobin Concentration 33.2 32.0 - 35.7 gm/dL [facility] Platelet 220 145 - 357 x10(3)/mc L [facility] RDW Standard Deviation 44.6 36.0 - 45.0 fL [facility] RDW coefficient of variation 12.3 11.4 - 13.8 % [facility] Mean Platelet Volume 11.1 7.6 - 12.9 fL [facility] NRBC% auto 0.0 % [facility] NRBC Absolute 0.000 0.000 - 0.000 x10(3)/mc L [facility] Blood specimen (specimen) 05/11/2017 4:21 PM EDT 05/11/2017 4:29 PM EDT Narrative Resulting Agency Comment Spec In Lab Marcelle Weinberg AUTOMATIC PINSETTER ADJUSTER HEMATOLOGY ORDERA BLES [facility] [place] [address] * CRP, acute inflammation (05/11/2017 4:21 PM EDT) [facility] C-Reactive Protein 2.3 <=4.9 mg/L [facility] Blood specimen (specimen) 05/11/2017 4:21 PM EDT 05/11/2017 4:29 PM EDT Narrative Resulting Agency Comment Spec In Lab Marcelle Weinberg AUTOMATIC PINSETTER ADJUSTER CHEMISTRY ORDERAB LES [facility] [place] [address] * (ABNORMAL) Sedimentation rate (05/11/2017 4:21 PM EDT) Sedimentation Rate Automated 19(H) 0 - 15 mm/hr [facility] Blood specimen (specimen) 05/11/2017 4:21 PM EDT 05/11/2017 4:29 PM EDT Narrative Resulting Agency Comment Spec In Lab Marcelle Weinberg AUTOMATIC PINSETTER ADJUSTER HEMATOLOGY ORDERA BLES [facility] [place] [address] * (ABNORMAL) CMP w/fasting Glucose (05/11/2017 4:21 PM EDT) Glucose Fasting 91 65 - 99 mg/dL [facility] Comment: ?Fasting* Glucose [...] of Diabetes Mellitus, Position Statement from the [place] [employer]. ??Diabetes Care, Volume 33, Supplement 1, Nov 2009 Blood Urea Nitrogen 20 10 - 20 mg/dL [facility] Creatinine 1.17 0.80 - 1.50 mg/dL [facility] Comment: Please note that the pediatric reference intervals supplied above were not validated at [facility]. Results from pediatric patients should be interpreted in conjunction to the patient's age, height and muscle mass. Sodium 143 135 - 145 mmol/L [facility] Potassium 4.9 3.5 - 5.0 mmol/L [facility] Comment: Please note: ??Patients with WBC >100,000 may have falsely elevated Potassium levels. ??For accurate Potassium quantification in these patients send serum separator tube (gold top) for subsequent determinations. ??Contact the Clinical Chemistry Laboratory if there are any questions. Chloride 103 98 - 107 mmol/L [facility] Carbon Dioxide 26 22 - 31 mmol/L [facility] Anion Gap 14 5 - 15 mmol/L [facility] Calcium 9.9 8.5 - 10.5 mg/dL [facility] Protein, Total 8.2(H) 6.1 - 8.0 gm/dL [facility] Albumin 4.3 3.2 - 5.2 gm/dL [facility] Aspartate Aminotransferase 13 0 - 39 unit/L [facility] Alanine Aminotransferase 21 0 - 55 unit/L [facility] Alkaline Phosphatase 58 40 - 120 unit/L [facility] Bilirubin, Total 0.3 0.2 - 1.3 mg/dL [facility] Bilirubin, Direct 0.1 0.0 - 0.3 mg/dL [facility] Est Glomerular Filtration Rate >60 >=60 [facility] Comment: This estimated [...] the following links into your internet browser. [email or web address] Blood specimen (specimen) 05/11/2017 4:21 PM EDT 05/11/2017 4:29 PM EDT Narrative Resulting Agency Comment Spec In Lab Marcelle Weinberg AUTOMATIC PINSETTER ADJUSTER CHEMISTRY ORDERAB LES [facility] [place] [address] documented in this encounter Visit Diagnoses Diagnosis Ulcerative colitis without complications, unspecified location documented in this encounter Care Teams Cash Specialist Relationship Specialty Start Date End Date Maximilian Fall MD [address] [place] [address] PCP - General 10/01/11 02/13/21 documented as of this encounter
--- OUTSIDE RECORDS SUMMARY | 2024-07-15 13:39 | XMS_ITS | Encounter Summary ---
Author Organization [facility] Address [facility] [place] [address] Care Team Providers Care Licensed Clinical Psychologist Name Role Phone Maximilian Fall MD Primary Care Provider [phone] Encounter Details Date Type Department Care Team (Latest Contact Info) Description 02/12/2017 10:14 AM EDT - 02/12/2017 1:50 PM EDT Hospital Encounter [place] [address] Dion Barlow MD [facility] [place] [address] Discharge Disposition: Home Social History Tobacco Use [...] - 02/12/2017 12:37 PM EDT Please call [phone] before 8pm with problems, questions or concerns, after 5pm call the Hospital at [phone] and ask to speak to the [employer] chemical production machine operator and the single spindle screw machine operator will contact that person [...] sent through Care Everywhere. * COLONOSCOPY: POST-OP (EGYPTIAN) documented in this encounter Medications at Time [...] 9:00 AM EDT Office Visit [place] [address] Dion Barlow MD [facility] [place] [address] 09/01/2024 9:40 AM EDT Office Visit Cardiology at [address] [place] [address] Franky Shaver MD [facility] [place] [address] 09/01/2024 11:20 AM EDT Office Visit Dermatology at [facility] [address] [place] [address] Gómez Mercer MD [facility] DR EDDIE [place] [address] 09/21/2024 2:45 PM EDT Office Visit [facility] [place] [address] Trung Hoyos MD [facility] [place] [address] documented as of this encounter Procedures Procedure [...] PM EDT 02/12/2017 12:16 PM EDT Narrative [facility] - 02/12/2017 12:16 PM EDT Specimen requisition ordered. ??Separate Pathology report to follow L Karthik Barlow MD PATHOLOGY/[place] [address] * Specimen to Pathology (surgical or derm) (02/12/2017 12:16 PM EDT) AP Specimen 02/12/2017 12:1 6 PM EDT 02/12/2017 12:16 PM EDT Narrative [facility] - 02/12/2017 12:16 PM EDT Specimen requisition ordered. ??Separate Pathology report to follow L Karthik Barlow MD PATHOLOGY/[place] [address] * Specimen to Pathology (surgical or derm) (02/12/2017 12:16 PM EDT) AP Specimen 02/12/2017 12:1 6 PM EDT 02/12/2017 12:16 PM EDT Narrative [facility] - 02/12/2017 12:16 PM EDT Specimen requisition ordered. ??Separate Pathology report to follow L Karthik Barlow MD PATHOLOGY/[place] [address] * Specimen to Pathology (surgical or derm) (02/12/2017 12:16 PM EDT) AP Specimen 02/12/2017 12:1 6 PM EDT 02/12/2017 12:16 PM EDT Narrative [facility] - 02/12/2017 12:16 PM EDT Specimen requisition ordered. ??Separate Pathology report to follow L Karthik Barlow MD PATHOLOGY/CYTOLOGY Ozzie MIKE [facility] [place] [address] * Surgical Pathology Report (02/12/2017 12:15 PM EDT) Final Diagnosis [id number] ?Location: 4T; EA07; A The signing pathologist [...] ing: (T2) ??ejr 02/13/2017 4:23 PM EDT [facility] GI Biopsy 02/12/2017 12:1 5 PM EDT 02/12/2017 12:15 PM EDT GI Biopsy 02/12/2017 12:1 5 PM EDT 02/12/2017 12:15 PM EDT GI Biopsy 02/12/2017 12:1 5 PM EDT 02/12/2017 12:15 PM EDT GI Biopsy 02/12/2017 12:1 5 PM EDT 02/12/2017 12:15 PM EDT L Karthik Barlow MD PATHOLOGY/CYTOLOGY O CEE [facility] [place] [address] * COLONOSCOPY (02/12/2017 11:40 AM EDT) COLONOSCOPY [facility] Endoscopy ___ Procedure Date: 02/12/2017 11:40 AM ? Patient Name: Brian Rodriguez ? Date of : 1950 ? Age: 66 ? Order #: [id number] ? Instrument Name: [id number] ? ___ Procedure: ? Colonoscopy Indications: ? High risk colon cancer surveillance: ? Ulcerative colitis Patient Profile: ? This is a 66 year old male. This ? patient has left-sided ulcerative ? colitis on sulfasalazine and ? Cortifoam and is experiencing mild ? symptoms. Providers: ? Davina Barlow MD, Vandana Love ? Mike, RONY, Sonal [facility], ? Family Law Legal Assistant Referring MD: ?Maximilian Fall MD Medicines: ? [...] preparation was evaluated using ? the BBPS ([place] Bowel Preparation ? Scale) with scores of: [...] Glucose, POC 132 65 - 199 mg/dL [facility] Comment: Supplemental ranges: <140 mg/dL before meals <180 mg/dL all other times of the day Blood specimen (specimen) 02/12/2017 10:29 AM EDT 02/12/2017 10:29 AM EDT Dion Barlow MD POINT OF CARE TEST O RDMELISSA Performing Organization Address City/[facility]/ZIP Co de Phone Number [facility] [place] [address] documented in this encounter Visit Diagnoses Not [...] RN) documented in this encounter Care Teams Licensed Clinical Psychologist Relationship Specialty Start Date End Date Maximilian Fall MD [address] [place] [address] PCP - General 10/01/11 02/13/21 documented as of this encounter
--- OUTSIDE RECORDS SUMMARY | 2024-07-15 13:39 | XMS_ITS | Encounter Summary ---
Author Organization [facility] [place] [address] Care Team Providers Care Real Estate Marketing Coordinator Name Role Phone Maximilian Fall MD Primary Care Provider [phone] Encounter Details Date Type Department Care Team (Late st Contact Info) Description 11/10/2018 Telephone [place] [address] Rachel Corral Social History Tobacco Use Types [...] 9:00 AM EDT [place] [address] Dion Barlow MD [facility] [place] [address] 09/01/2024 9:40 AM EDT Office Visit Cardiology at [address] [phone] Franky Shaver MD [facility] [place] [address] 09/01/2024 11:20 AM EDT Office Visit Dermatology at [address] [place] [phone] Gómez Mercer MD [facility] [place] [address] 09/21/2024 2:45 PM EDT Office Visit [place] [phone] Trung Hoyos MD [facility] [place] [address] documented as of this encounter Visit Diagnoses Not on filedocumented in this encounter Care Teams Real Estate Marketing Coordinator Relationship Specialty Start Date End Date Maximilian Fall MD [address] [facility] [place] [address] PCP - General 10/01/11 02/13/21 documented as of this encounter
--- OUTSIDE RECORDS SUMMARY | 2024-07-15 13:39 | XMS_ITS | Encounter Summary ---
Author Organization [facility] [place] [address] Care Team Providers Care Fur Blowing Machine Attendant Name Role Phone Maximilian Fall MD Primary Care Provider Reason for Visit * Reason Onset Date Comments Medication Refill 05/03/2018 Encounter Details Date Type Department Care Team (Late Contact Info) Description 05/03/2018 [place] [address] Bethany Trivedi, RN Social History Tobacco Use [...] 9:00 AM EDT Office [place] [phone] Dion Barlow MD [facility] [place] [place] [address] 09/01/2024 9:40 AM EDT Office Visit Cardiology at [address] [phone] Franky Shaver MD [facility] [place] [address] 09/01/2024 11:20 AM EDT Office Visit Dermatology at [facility] [address] [place] [address] Gómez Mercer MD [facility] DR [place] [address] 09/21/2024 2:45 PM EDT Office Visit Pain and Spine Center at [facility] [place] [phone] Trung Hoyos MD [facility] [place] [address] documented as of this encounter Visit Diagnoses Not on filedocumented in this encounter Care Teams Fur Blowing Machine Attendant Relationship Specialty Start Date End Date Maximilian Fall MD [address] [place] [address] PCP - General 10/01/11 02/13/21 documented as of this encounter
--- OUTSIDE RECORDS SUMMARY | 2024-07-15 13:39 | XMS_ITS | Encounter Summary ---
Author Organization [facility] Address [facility] [place] [address] Care Team Providers Care Component Design Engineer Name Role Phone Maximilian Fall MD Primary Care Provider [phone] Reason for Visit * Reason Comments Follow-up Encounter Details Date Type Department Care Team (Late st Contact Info) Description 05/03/2018 8:30 AM EDT Office [place] [address] Dion Barlow MD [facility] [place] [address] Ulcerative pancolitis with complication Social History Tobacco [...] Overview Note: ? Colonoscopy 04/08/10 (Dr. Gomes [facility]) - inflammation only within the rectum and sigmoid; extent of the exam was to the hepatic flexure; biopsies proximal to the sigmoid nl ?? Repeat exam 11/27/11 ([facility] [...] visit. 15 min of this 25 min [id number] visit was spent counseling the patient in the issues outlined above. Davina Barlow MD Watershed Manageraircraft layout worker Section of Gastroenterology [place] [address] CC: Maximilian Fall MD [address] [place] [id number] documented in this encounter Miscellaneous Notes * Addendum Note - Izabela Spencer - 05/03/2018 9:35 AM EDTAddended by: IZABELA SPENCER on: 05/03/2018 09:35 AM Modules accepted: Orders documented in this encounter Plan of Treatment Upcoming Encounters Date Type Department Care Team (Late st Contact Info) Description 08/15/2024 9:00 AM EDT Office [place] [address] Dion Barlow MD [facility] [place] [address] 09/01/2024 9:40 AM EDT Office Visit Cardiology at [address] [place] [address] Franky Shaver MD [facility] [place] [address] 09/01/2024 11:20 AM EDT Office Visit Dermatology at [facility] [address] [place] [address] Gómez Mercer MD [facility] DR EDDIE [place] [address] 09/21/2024 2:45 PM EDT Office Visit Pain and Spine Center at [facility] [place], [facility] [place] [address] Trung Hoyos MD [facility] [place] [address] documented as of this encounter Procedures Procedure [...] Absolute 3.86 1.70 - 6.10 x10(3)/[facility] LABORATORY Lymph % 27.2 % [facility] Lymphocytes Abs 1.7 0.9 - 3.2 x10(3)/[facility] LABORATORY Monocyte % 7.1 % [facility] Monocyte Abs 0.4 0.3 - 0.9 x10(3)/[facility] LABORATORY Eos % 2.1 % [facility] Eosinophils Abs 0.1 0.0 - 0.4 x10(3)/[facility] LABORATORY Basophil % 0.6 % [facility] Baso Absolute 0.0 0.0 - 0.1 x10(3)/[facility] LABORATORY Immature Gran % 0.50 % [facility] Comment: Immature granulocytes(IG's)percentage and absolute count will include metamyelocytes, myelocytes, and promyelocytes. Blood smears from CBCs yielding IG's will be scanned manually for concordance. If this scan disagrees with the automated IG or if promyelocytes are noted, a manual differential will be performed. Immature Gran Absolute 0.03 0.00 - 0.04 x10(3)/[facility] LABORATORY Blood specimen (specimen) 05/03/2018 9:46 AM EDT 05/03/2018 10:12 AM EDT Narrative Resulting Agency Comment Spec In Lab L Karthik Barlow MD HEMATOLOGY ORDERABLE S [facility] [place] [address] * (ABNORMAL) Hemogram (05/03/2018 9:46 AM EDT) White Blood Cell 6.2 4.0 - 9.5 x10(3)/mc L [facility] Red Blood Cell 4.02(L) 4.58 - 5.54 x10(6)/ L [facility] Hemoglobin 13.0(L) 13.7 - 16.5 gm/dL [facility] Hematocrit 39.7(L) 40.5 - 48.5 % [facility] Mean Cell Volume 98.8(H) 82.9 - 93.[address] [facility] Mean Cell Hemoglobin 32.3(H) 27.5 - 32.[address] [facility] Mean Cell Hemoglobin Concentration 32.7 32.0 - 35.7 gm/dL [facility] Platelet 202 145 - 357 x10(3)/mc L [facility] RDW Standard Deviation 45.3(H) 36.0 - 45.[address] [facility] RDW coefficient of variation 12.5 11.4 - 13.8 % [facility] Mean Platelet Volume 11.2 7.6 - 12.[address] [facility] NRBC% auto 0.0 % [facility] NRBC Absolute 0.000 0.000 - 0.000 x10(3)/mc L [facility] Blood specimen (specimen) 05/03/2018 9:46 AM EDT 05/03/2018 10:12 AM EDT Narrative Resulting Agency Comment Spec In Lab L Karthik Barlow MD HEMATOLOGY ORDERABLE S Performing Organization Address City/[facility]/ZIP Co de Phone Number [facility] [place] [address] * CRP, acute inflammation (05/03/2018 9:46 AM EDT) C-Reactive Protein 3.1 <=4.9 mg/L [facility] Blood specimen (specimen) 05/03/2018 9:46 AM EDT 05/03/2018 10:12 AM EDT Narrative Resulting Agency Comment Spec In Lab L Karthik Barlow MD CHEMISTRY ORDERABLES [facility] [place] [address] * Comprehensive metabolic panel (non-fasting) (05/03/2018 9:46 AM EDT) Glucose 110 65 - 199 mg/dL [facility] Comment:Diabetes: >=200 mg/d L plus symptoms Blood Urea Nitrogen 13 10 - 20 mg/dL [facility] Creatinine 0.92 0.80 - 1.50 mg/dL [facility] Sodium 143 135 - 145 mmol/L [facility] Potassium 4.4 3.5 - 5.0 mmol/L [facility] Comment: Please note: ??Patients with WBC >100,000 may have falsely elevated Potassium levels. ??For accurate Potassium quantification in these patients send serum separator tube (gold top) for subsequent determinations. ??Contact the Clinical Chemistry Laboratory if there are any questions. Chloride 105 98 - 107 mmol/L [facility] Carbon Dioxide 27 22 - 31 mmol/L [facility] Anion Gap 11 5 - 15 mmol/L [facility] Calcium 9.9 8.5 - 10.5 mg/dL [facility] Protein, Total 7.7 6.1 - 8.0 gm/dL [facility] Albumin 4.1 3.2 - 5.2 gm/dL [facility] Aspartate Aminotransferase 11 0 - 39 unit/L [facility] Alanine Aminotransferase 13 0 - 55 unit/L [facility] Alkaline Phosphatase 61 40 - 120 unit/L [facility] Bilirubin, Total 0.3 0.2 - 1.3 mg/dL [facility] Est Glomerular Filtration Rate >60 >=60 [facility] Comment: The reported eGFR should be multiplied by 1.2 for patients. The MDRD is not an appropriate measure of renal function for patients with body mass extremes or in patients with acute kidney failure. http://EventHive.NeuString/DHnkdep http://EventHive.NeuString/DHMCnkf Blood specimen (specimen) 05/03/2018 9:46 AM EDT 05/03/2018 10:12 AM EDT Narrative Resulting Agency Comment Spec In Lab L Karthik Barlow MD CHEMISTRY ORDERABLES [facility] [place] [address] documented in this encounter Visit Diagnoses Diagnosis Ulcerative pancolitis with complication documented in this encounter Care Teams Component Design Engineer Relationship Specialty Start Date End Date Maximilian Fall MD [address] [facility] [place] [address] PCP - General 10/01/11 02/13/21 documented as of this encounter
--- OUTSIDE RECORDS SUMMARY | 2024-07-15 13:39 | XMS_ITS | Encounter Summary ---
Author Organization [facility] [place] [address] Care Team Providers Care Soda Worker Name Role Phone Maximilian Fall MD Primary Care Provider Encounter Details Date Type Department Care Team (Late st Contact Info) Description 07/07/2016 Telephone [place] [phone] Bethany Trivedi RN Social History Tobacco Use [...] 9:00 AM EDT Office [place] [address] Dion Barlow MD [facility] [place] [address] 09/01/2024 9:40 AM EDT Office Visit Cardiology at [address] [phone] Franky Shaver MD [facility] [place] [address] 09/01/2024 11:20 AM EDT Office Visit Dermatology at [facility] [address] [place] [address] Gómez Mercer MD [facility] DR [place] [address] 09/21/2024 2:45 PM EDT Office Visit [place] [phone] Trung Hoyos MD [facility] [place] [address] documented as of this encounter Results * C. Difficile Screen (07/18/2016 2:32 PM EDT) C Diff Interp Negative Negative [facility] Comment: C. diff ??Negative Clostridium difficile is not present in the specimen. If patient is having diarrhea suspected to be from an infectious cause, then Contact Precautions are still required. Stool specimen (specimen) 07/18/2016 2:32 PM EDT 07/18/2016 2:32 PM EDT Narrative Resulting Agency Comment Spec In Lab L Karthik Barlow MD MICROBIOLOGY - GENER AL ORDERABLES Performing Organization Address [facility]/ZIP Co de Phone Number [facility] [place] [address] * (ABNORMAL) Sedimentation rate (07/14/2016 12:21 PM EDT) Sedimentation Rate Automated 17(H) 0 - 15 mm/hr [facility] Blood specimen (specimen) 07/14/2016 12:21 PM EDT 07/14/2016 12:29 PM EDT Narrative Resulting Agency Comment Spec In Lab L Karthik Barlow MD HEMATOLOGY ORDERABLE S Performing Organization Address [facility] Co de Phone Number [facility] [place] [address] * Comprehensive metabolic panel (non-fasting) (07/14/2016 12:21 PM EDT) Glucose 147 65 - 199 mg/dL [facility] Comment:Diabetes: >=200 mg/d L plus symptoms Blood Urea Nitrogen 17 10 - 20 mg/dL [facility] Creatinine 1.04 0.80 - 1.50 mg/dL [facility] Comment: Please note that the pediatric reference intervals supplied above were not validated at [facility]. Results from pediatric patients should be interpreted in conjunction to the patient's age, height and muscle mass. Sodium 140 135 - 145 mmol/L [facility] Potassium 4.6 3.5 - 5.0 mmol/L [facility] Comment: Please note: ??Patients with WBC >100,000 may have falsely elevated Potassium levels. ??For accurate Potassium quantification in these patients send serum separator tube (gold top) for subsequent determinations. ??Contact the Clinical Chemistry Laboratory if there are any questions. Chloride 102 98 - 107 mmol/L [facility] Carbon Dioxide 25 22 - 31 mmol/L [facility] Anion Gap 13 5 - 15 mmol/L [facility] Calcium 9.7 8.5 - 10.5 mg/dL [facility] Protein, Total 7.9 6.1 - 8.0 gm/dL [facility] Albumin 4.4 3.2 - 5.2 gm/dL [facility] Aspartate Aminotransferase 15 0 - 39 unit/L [facility] Alanine Aminotransferase 20 0 - 55 unit/L [facility] Alkaline Phosphatase 65 40 - 120 unit/L [facility] Bilirubin, Total 0.4 0.2 - 1.3 mg/dL [facility] Bilirubin, Direct 0.1 0.0 - 0.3 mg/dL [facility] Est Glomerular Filtration Rate >60 >=60 [facility] Comment: This estimated [...] the following links into your internet browser. 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
--- OUTSIDE RECORDS SUMMARY | 2024-07-15 13:39 | XMS_ITS | Encounter Summary ---
Author Organization [facility] [place] [address] Care Team Providers Care Supervisor Lens Generating Name Role Phone Maximilian Fall MD Primary Care Provider [phone] Encounter Details Date Type Department Care Team (Late st Contact Info) Description 11/02/2018 Telephone [place] [address] Marcelle Weinberg, PIN CLEANER [facility] [place] [address] Social History Tobacco Use Types Packs/Day Years [...] Notes * Telephone Encounter - Marcelle Weinberg, PIN CLEANER - 11/02/2018 5:27 PM EST I called [...] 9:00 AM EDT Office [place] [address] Dion Barlow MD [facility] [place] [address] 09/01/2024 9:40 AM EDT Office Visit Cardiology at [address] [address] Franky Shaver MD [facility] [place] [address] 09/01/2024 11:20 AM EDT Office Visit Dermatology at [facility] [address] [place] [phone] Gómez Mercer MD [facility] [place] [address] 09/21/2024 2:45 PM EDT Office Visit [place] [address] Trung Hoyos MD [facility] [place] [address] documented as of this encounter Visit Diagnoses Not on filedocumented in this encounter Care Teams Supervisor Lens Generating Relationship Specialty Start Date End Date Maximilian Fall MD [address] [place] [address] PCP - General 10/01/11 02/13/21 documented as of this encounter
--- OUTSIDE RECORDS SUMMARY | 2024-07-15 13:39 | XMS_ITS | Encounter Summary ---
Author Organization [facility] Address [facility] [place] [address] Care Team Providers Care Commercial Hvac Technician Name Role Phone Maximilian Fall MD Primary Care Provider [phone] Encounter Details Date Type Department Care Team (Late st Contact Info) Description 02/23/2019 Telephone [place] [address] Suzanne Guillermo Social History Tobacco [...] 9:00 AM EDT Office [place] [address] Dion Barlow MD [facility] [place] [address] 09/01/2024 9:40 AM EDT Office Visit Cardiology at [address] [place] [phone] Franky Shaver MD [facility] [place] [address] 09/01/2024 11:20 AM EDT Office Visit Dermatology at [facility] [address] [place] [phone] Gómez Mercer MD [facility] [place] [address] 09/21/2024 2:45 PM EDT Office Visit Pain and Spine Center at [facility] [place] [address] Trung Hoyos MD [facility] [place] [address] documented as of this encounter Visit Diagnoses Not on filedocumented in this encounter Care Teams Commercial Hvac Technician Relationship Specialty Start Date End Date Maximilian Fall MD [address] [place] [address] PCP - General 10/01/11 02/13/21 documented as of this encounter
--- OUTSIDE RECORDS SUMMARY | 2024-07-15 13:39 | XMS_ITS | Encounter Summary ---
Author Organization [facility] Address [facility] [place] [address] Care Team Providers Care Teleprinter Installer Name Role Phone Maximilian Fall MD Primary Care Provider [phone] Encounter Details Date Type Department Care Team (Late st Contact Info) Description 02/12/2017 11:15 AM EDT - 02/12/2017 12:00 PM EDT Surgery [place] [address] Dion Barlow MD [facility] [place] [address] COLONOSCOPY FLEXIBLE, WITH BX (WRVU 3.56) Social [...] - 02/12/2017 12:37 PM EDT Please call [phone] before 8pm with problems, questions or concerns, after 5pm call the Hospital at [phone] and ask to speak to the Maker Up Folding client relationship executive and the scoreboard operator will contact that person for you. [...] 9:00 AM EDT Office [place] [address] Dion Barlow MD [facility] [place] [address] 09/01/2024 9:40 AM EDT Office Visit Cardiology at [address] [place] [phone] Franky Shaver MD [facility] [place] [address] 09/01/2024 11:20 AM EDT Office Visit Dermatology at [facility] [address] [place] [phone] Gómez Mercer MD [facility] DR EDDIE [place] [address] 09/21/2024 2:45 PM EDT Office Visit [place] [address] Trung Hoyos MD [facility] [place] [address] documented as of this encounter Procedures Procedure [...] Organization Address City/[facility]/[place] [address] * Specimen to Pathology (surgical or derm) (02/12/2017 12:16 PM EDT) AP Specimen 02/12/2017 12:1 6 PM EDT 02/12/2017 12:[address] [facility] - 02/12/2017 12:16 PM EDT Specimen requisition ordered. ??Separate Pathology report to follow L Karthik Barlow MD PATHOLOGY/CYTOLOGY O CEE Performing Organization Address City/[facility]/[place] [address] * Specimen to Pathology (surgical or derm) (02/12/2017 12:16 PM EDT) AP Specimen 02/12/2017 12:1 6 PM EDT 02/12/2017 12:16 PM EDT [facility] LABORATORY - 02/12/2017 12:16 PM EDT Specimen requisition ordered. ??Separate Pathology report to follow L Karthik Barlow MD PATHOLOGY/[place] [address] * Specimen to Pathology (surgical or derm) (02/12/2017 12:16 PM EDT) AP Specimen 02/12/2017 12:1 6 PM EDT 02/12/2017 12:[address] [facility] - 02/12/2017 12:16 PM EDT Specimen requisition ordered. ??Separate Pathology report to follow L Karthik Barlow MD PATHOLOGY/CYTOLOGY Ozzie MIKE [facility] [place] [address] * Surgical Pathology Report (02/12/2017 12:15 PM EDT) Final Diagnosis [id number] ?Location: 4T; EA07; A The signing pathologist [...] PATHOLOGY/CYTOLOGY O CEE [facility] [place] [address] * COLONOSCOPY (02/12/2017 11:40 AM EDT) COLONOSCOPY [facility] Endoscopy ___ Procedure Date: 02/12/2017 11:40 AM ? Patient Name: Brian Rodriguez ? Date of : 1950 ? Age: 66 ? Order #: [id number] ? Instrument Name: [id number] ? ___ Procedure: ? Colonoscopy Indications: ? High risk colon cancer surveillance: ? Ulcerative colitis Patient Profile: ? This is a 66 year old male. This ? patient has left-sided ulcerative ? colitis on sulfasalazine and ? Cortifoam and is experiencing mild ? symptoms. Providers: ? L. Karthik Barlow MD, Vandana Love ? RONY Mckeon, [facility], ? Chief Contract Officer Referring MD: ?Maximilian Fall MD Medicines: [...] preparation was evaluated using ? the BBPS ([place] Bowel Preparation ? Scale) with scores of: [...] GENERAL SURGICAL ORD ERABLES Performing Organization Address City/[facility]/ZIP Co de Phone Number PROVATION * POCT [...] CARE TEST O RDMELISSA Performing Organization Address [facility] Co de Phone Number [facility] [place] [address] documented in this encounter Visit Diagnoses Diagnosis [...] RN) documented in this encounter Care Teams Teleprinter Installer Relationship Specialty Start Date End Date Maximilian Fall MD [address] [place] [address] PCP - General 10/01/11 02/13/21 documented as of this encounter
--- OUTSIDE RECORDS SUMMARY | 2024-07-15 13:39 | XMS_ITS | Encounter Summary ---
Author Organization [facility] Address [facility] [place] [address] Care Team Providers Care Special Technical Operations Officer Name Role Phone Maximilian Fall MD Primary Care Provider [phone] Reason for Visit * Reason Comments Follow-up Encounter Details Date Type Department Care Team (Late st Contact Info) Description 05/16/2016 10:30 AM EDT Office [place] [address] Dion Barlow MD [facility] [place] [place] [address] Other ulcerative colitis with complication Social History [...] Note: ?? Colonoscopy 04/08/10 (Dr. Gomes [facility]) - inflammation only within the rectum and sigmoid; extent of the exam was to the hepatic flexure; biopsies proximal to the sigmoid nl ?? Repeat exam 11/27/11 ([facility] mildly active colitis in the sigmoid colon [...] months. 10 min of this 15 min [id number]-vt-[id number] visit was spent counseling the patient in the issues outlined above. Davina Barlow MD Winery Workerloan collector Section of [place] [address] documented in this encounter Plan of Treatment Upcoming Encounters Date Type Department Care Team (Late st Contact Info) Description 08/15/2024 9:00 AM EDT Office [place] [phone] Dion Barlow MD [facility] [place] [address] 09/01/2024 9:40 AM EDT Office Visit Cardiology at [address] [place] [address] Franky Shaver MD [facility] [address] 09/01/2024 11:20 AM EDT Office Visit Dermatology at [facility] [address] [place] [address] Gómez Mercer MD [facility] [place] [address] 09/21/2024 2:45 PM EDT Office Visit [place] [address] Trung Hoyos MD [facility] [place] [address] documented as of this encounter Visit Diagnoses Diagnosis Other ulcerative colitis with complication documented in this encounter Care Teams Special Technical Operations Officer Relationship Specialty Start Date End Date Maximilian Fall MD [address] [facility] [place] [address] PCP - General 10/01/11 02/13/21 documented as of this encounter
--- OUTSIDE RECORDS SUMMARY | 2024-07-15 13:39 | XMS_ITS | Encounter Summary ---
Author Organization [facility] Address [facility] [place] [address] Care Team Providers Care Deputy Treasurer Name Role Phone Maximilian Fall MD Primary Care Provider [phone] Encounter Details Date Type Department Care Team (Late st Contact Info) Description 02/22/2019 3:30 PM EDT - 02/22/2019 4:15 PM EDT Surgery [place] [address] Dion Barlow MD [facility] [place] [address] COLONOSCOPY FLEXIBLE, WITH BX (WRVU 3.56) Social [...] - 02/22/2019 5:05 PM EDT Please call [phone] before 8pm Mon-Fri with problems, questions or concerns. If you call after 8pm or on weekends, call the Hospital at [phone] and ask to speak to the Oncology Account Specialist filtration plant mechanic and the packerhead machine operator will contact that person for you. * Attachments The following attachments cannot be sent through Care Everywhere. * Colonoscopy: Post-op (Kazakh) * Colon Polyps (Kazakh) documented in this encounter Medications at Time [...] needed for Wheezing. Use with spacer DOT ANDERSONPEN U-100 INSULIN 100 unit/mL (3 mL) [...] for MIGRAINE PROPHYLAXIS 0 04/06/2017 07/04/2024 sulfaSALAzine (AZULFIDINE) 500 mg Tablet Take 4 [...] 9:00 AM EDT Office Visit [place] [address] Dion Barlow MD [facility] [place] [address] 09/01/2024 9:40 AM EDT Office Visit Cardiology at [address] [place] [address] Franky Shaver MD [facility] [place] [address] 09/01/2024 11:20 AM EDT Office Visit Dermatology at [facility] [address] [place] [address] Gómez Mercer MD [facility] DR EDDIE [place] [address] 09/21/2024 2:45 PM EDT Office Visit [facility] [place] [address] Trung Hoyos MD [facility] [place] [address] documented as of this encounter Procedures Procedure [...] PATHOLOGY/CYTOLOGY O CEE Performing Organization Address [facility]/[place] [address] * Specimen to Pathology (02/22/2019 4:56 PM EDT) AP Specimen 02/22/2019 4:56 PM EDT 02/22/2019 4:56 PM EDT Narrative [facility] - 02/22/2019 4:56 PM EDT Specimen requisition ordered. ??Separate Pathology report to follow L Karthik Barlow MD PATHOLOGY/CYTOLOGY O CEE Performing Organization Address City/[facility]/[place] [address] * Specimen to Pathology (02/22/2019 4:56 PM EDT) AP Specimen 02/22/2019 4:56 PM EDT 02/22/2019 4:56 PM EDT Narrative [facility] - 02/22/2019 4:56 PM EDT Specimen requisition ordered. ??Separate Pathology report to follow L Karthik Barlow MD PATHOLOGY/CYTOLOGY O CEE Performing Organization Address City/[facility]/ZIP Co de Phone [place] [address] * Specimen to Pathology (02/22/2019 4:56 PM EDT) AP Specimen 02/22/2019 4:56 PM EDT 02/22/2019 4:56 PM EDT Narrative [facility] - 02/22/2019 4:56 PM EDT Specimen requisition ordered. ??Separate Pathology report to follow L Karthik Barlow MD PATHOLOGY/[place] [address] * Specimen to Pathology (02/22/2019 4:56 PM EDT) AP Specimen 02/22/2019 4:56 PM EDT 02/22/2019 4:56 PM EDT Narrative [facility] - 02/22/2019 4:56 PM EDT Specimen requisition ordered. ??Separate Pathology report to follow L Karthik Barlow MD PATHOLOGY/[place] [address] * Specimen to Pathology (02/22/2019 4:56 PM EDT) AP Specimen 02/22/2019 4:56 PM EDT 02/22/2019 4:56 PM EDT Narrative [facility] - 02/22/2019 4:56 PM EDT Specimen requisition ordered. ??Separate Pathology report to follow L Karthik Barlow MD PATHOLOGY/[place] [address] * Specimen to Pathology (02/22/2019 4:56 PM EDT) AP Specimen 02/22/2019 4:56 PM EDT 02/22/2019 4:56 PM EDT [facility] - 02/22/2019 4:56 PM EDT Specimen requisition ordered. ??Separate Pathology report to follow L Karthik Barlow MD PATHOLOGY/CYTOLOGY O CEE Performing Organization Address [facility] Co de Phone Number [facility] [place] [address] * Specimen to Pathology (02/22/2019 4:56 PM EDT) AP Specimen 02/22/2019 4:56 PM EDT 02/22/2019 4:56 PM EDT Narrative [facility] - 02/22/2019 4:56 PM EDT Specimen requisition ordered. ??Separate Pathology report to follow L Karthik Barlow MD PATHOLOGY/CYTOLOGY O CEE Performing Organization Address [facility] de Phone Number [facility] [place] [address] * Surgical Pathology Report (02/22/2019 4:23 PM EDT) Final Diagnosis [id number] ? Location: 4T; EA06; A The signing [...] Tucker MD Verified: ??02/26/2019 ?Pathologist Performed at: ??-[facility] Dept. of Pathology, [place], [place] CLINICAL INFORMATION Specimen Submitted: A - [...] PATHOLOGY/CYTOLOGY O RDERABLES [facility] [place] [address] * COLONOSCOPY (02/22/2019 3:57 PM EDT) COLONOSCOPY [facility] Endoscopy ___ Procedure Date: 02/22/2019 3:57 PM ? Patient Name: Brian Rodriguez ? Date of : 1950 ? Age: 68 ? Order #: [id number] ? Instrument Name: [id number] ? ___ Procedure: ? Colonoscopy Indications: ? [...] preparation was evaluated using ? the BBPS ([place] Bowel Preparation ? Scale) with scores of: [...] RN) documented in this encounter Care Teams Deputy Treasurer Relationship Specialty Start Date End Date Maximilian Fall MD [address] [address] PCP - General 10/01/11 02/13/21 documented as of this encounter
--- OUTSIDE RECORDS SUMMARY | 2024-07-15 13:39 | XMS_ITS | Encounter Summary ---
Author Organization [facility] Address [facility] [place] [address] Care Team Providers Care Feed Crusher Name Role Phone Maximilian Fall MD Primary Care Provider Encounter Details Date Type Department Care Team (Late st Contact Info) Description 02/22/2019 Orders [place] [address] Dion Barlow MD [facility] [place] [address] Social History Tobacco Use Types Packs/Day Years [...] 9:00 AM EDT Office [place] [address] Dion Barlow MD [facility] [place] [address] 09/01/2024 9:40 AM EDT Office Visit Cardiology at [address] [place] [phone] Franky Shaver MD [facility] [place] [address] 09/01/2024 11:20 AM EDT Office Visit Dermatology at [facility] [address] [place] [address] Gómez Mercer MD [facility] DR EDDIE [place] [address] 09/21/2024 2:45 PM EDT Office Visit [place] [address] Trung Hoyos MD [facility] [place] [address] documented as of this encounter Visit Diagnoses Not on filedocumented in this encounter Care Teams Feed Crusher Relationship Specialty Start Date End Date Maximilian Fall MD [address] [facility] [place] [address] PCP - General 10/01/11 02/13/21 documented as of this encounter
--- OUTSIDE RECORDS SUMMARY | 2024-07-15 13:39 | XMS_ITS | Encounter Summary ---
Author Organization [facility] Address [facility] [place] [address] Care Team Providers Care Training And Development Director Name Role Phone Maximilian Fall MD Primary Care Provider [phone] Encounter Details Date Type Department Care Team (Latest Contact Info) Description 02/22/2019 2:13 PM EDT - 02/22/2019 5:26 PM EDT Hospital Encounter [place] [address] Dion Barlow MD [facility] [place] [address] Discharge Disposition: Home Social History Tobacco Use [...] - 02/22/2019 5:05 PM EDT Please call [phone] before 8pm Mon-Fri with problems, questions or concerns. If you call after 8pm or on weekends, call the Hospital at [phone] and ask to speak to the Plasterer Spot shell mold bonding machine operator and the ecdis n navigation operator will contact that person for you. * Attachments The following attachments cannot be sent through Care Everywhere. * Colonoscopy: Post-op (Slovak) * Colon Polyps (Slovak) documented in this encounter Medications at Time [...] Office Visit [place] [address] Dion Barlow MD [facility] [place] [address] 09/01/2024 9:40 AM EDT Office Visit Cardiology at [address] [place] [address] Franky Shaver MD [facility] [place] [address] 09/01/2024 11:20 AM EDT Office Visit Dermatology at [facility] [address] [place] [address] Gómez Mercer MD [facility] DR [place] [address] 09/21/2024 2:45 PM EDT Office Visit [facility] [place] [address] Trung Hoyos MD [facility] [place] [address] documented as of this encounter Procedures Procedure [...] PM EDT 02/22/2019 4:[address] [facility] - 02/22/2019 4:56 PM EDT Specimen requisition ordered. ??Separate Pathology report to follow L Karthik Barlow MD PATHOLOGY/CYTOLOGY O RDMELISSA Performing Organization Address [facility]/[place] [address] * Specimen to Pathology (02/22/2019 4:56 PM EDT) AP Specimen 02/22/2019 4:56 PM EDT 02/22/2019 4:[address] [facility] - 02/22/2019 4:56 PM EDT Specimen requisition ordered. ??Separate Pathology report to follow L Karthik Barlow MD PATHOLOGY/CYTOLOGY O RDERABLES Performing Organization Address City/[facility]/[place] [address] * Specimen to Pathology (02/22/2019 4:56 PM EDT) AP Specimen 02/22/2019 4:56 PM EDT 02/22/2019 4:[address] [facility] - 02/22/2019 4:56 PM EDT Specimen requisition ordered. ??Separate Pathology report to follow L Karthik Barlow MD PATHOLOGY/CYTOLOGY O RDERAOMAR [facility] [address] * Specimen to Pathology (02/22/2019 4:56 PM EDT) AP Specimen 02/22/2019 4:56 PM EDT 02/22/2019 4:[address] [facility] - 02/22/2019 4:56 PM EDT Specimen requisition ordered. ??Separate Pathology report to follow L Karthik Barlow MD PATHOLOGY/CYTOLOGY O CEE Performing Organization Address [facility]/[place] [address] * Specimen to Pathology (02/22/2019 4:56 PM EDT) AP Specimen 02/22/2019 4:56 PM EDT 02/22/2019 4:[address] [facility] - 02/22/2019 4:56 PM EDT Specimen requisition ordered. ??Separate Pathology report to follow L Karthik Barlow MD PATHOLOGY/CYTOLOGY O CEE Performing Organization Address [facility]/[place] [address] * Specimen to Pathology (02/22/2019 4:56 PM EDT) AP Specimen 02/22/2019 4:56 PM EDT 02/22/2019 4:[address] [facility] - 02/22/2019 4:56 PM EDT Specimen requisition ordered. ??Separate Pathology report to follow L Karthik Barlow MD PATHOLOGY/CYTOLOGY O CEE Performing Organization Address [facility] [place] [address] * Specimen to Pathology (02/22/2019 4:56 PM EDT) AP Specimen 02/22/2019 4:56 PM EDT 02/22/2019 4:[address] [facility] - 02/22/2019 4:56 PM EDT Specimen requisition ordered. ??Separate Pathology report to follow L Karthik Barlow MD PATHOLOGY/CYTOLOGY O CEE Performing Organization Address [facility] [place] [address] * Specimen to Pathology (02/22/2019 4:56 PM EDT) AP Specimen 02/22/2019 4:56 PM EDT 02/22/2019 4:[address] [facility] - 02/22/2019 4:56 PM EDT Specimen requisition ordered. ??Separate Pathology report to follow L Karthik Barlow MD PATHOLOGY/CYTOLOGY O CEE Performing Organization Address [facility] [place] [address] * Surgical Pathology Report (02/22/2019 4:23 PM EDT) Final Diagnosis [id number] ? Location: 4T; EA06; A The signing [...] Tucker MD Verified: ??02/26/2019 ?Pathologist Performed at: ??-[facility] Dept. of Pathology, [place], [place] CLINICAL INFORMATION Specimen Submitted: A - [...] labeled H1-H2. ??apb 02/26/2019 4:[address] [facility] GI Biopsy 02/22/2019 4:23 PM [...] L Karthik Barlow MD PATHOLOGY/CYTOLOGY O RDERABLES [facility] [place] [address] * COLONOSCOPY (02/22/2019 3:57 PM EDT) COLONOSCOPY [facility] Endoscopy ___ Procedure Date: 02/22/2019 3:57 PM ? Patient Name: Brian Rodriguez ? Date of : 1950 ? Age: 68 ? Order #: [id number] ? Instrument Name: [id number] ? ___ Procedure: ? Colonoscopy Indications: ? [...] preparation was evaluated using ? the BBPS ([place] Bowel Preparation ? Scale) with scores of: [...] GENERAL SURGICAL ORD ERABLES Performing Organization Address City/State/[facility] Co de Phone Number PROVATION documented [...] RN) documented in this encounter Care Teams Training And Development Director Relationship Specialty Start Date End Date Maximilian Fall MD [address] [place] [address] PCP - General 10/01/11 02/13/21 documented as of this encounter
--- OUTSIDE RECORDS SUMMARY | 2024-07-15 13:39 | XMS_ITS | Encounter Summary ---
Author Organization [facility] Address [facility] [place] [address] Care Team Providers Care Telecom Manager Name Role Phone Maximilian Fall MD Primary Care Provider [phone] Reason for Visit * Reason Comments Follow-up Encounter Details Date Type Department Care Team (Late st Contact Info) Description 04/08/2016 1:30 PM EDT Office Visit [place] [address] Marcelle Weinberg, JAZMINE [facility] [place] [address] Ulcerative chronic pancolitis, unspecified complication Social History [...] sigmoid nl ?? Repeat exam 11/27/11 ([facility] mildly active colitis in [...] OSULLIVAN at [facility] ENDOSCOPY ??? Pro sigmoidoscopy, diagnostic 03/16/2012 FLEXIBLE SIGMOIDOSCOPY performed by YUDI MALLOY at [facility] ENDOSCOPY ??? Upper gi endoscopy, exam 10/01/2012 UPPER GI ENDOSCOPY performed by Dion OSULLIVAN at [facility] ENDOSCOPY ??? Pro colonoscopy, diagnostic 07/13/2014 COLONOSCOPY, DIAGNOSTIC performed by Dion Osullivan MD at [facility] ENDOSCOPY No family history on file. History [...] 9:00 AM EDT Office Visit [place] [address] [facility] [place] [address] 09/01/2024 9:40 AM EDT Office Visit Cardiology at [address] [address] [facility] [place] [address] 09/01/2024 11:20 AM EDT Office Visit Dermatology at [facility] [address] [place] [address] [facility] DR [place] [address] 09/21/2024 2:45 PM EDT Office Visit [facility] [place] [address] [facility] [place] [address] documented as of this encounter Visit Diagnoses Diagnosis Ulcerative chronic pancolitis, unspecified complication documented in this encounter Care Teams Telecom Manager Relationship Specialty Start Date End Date Maximilian Fall MD [address] [place] [address] PCP - General 10/01/11 02/13/21 documented as of this encounter
--- OUTSIDE RECORDS SUMMARY | 2024-07-15 13:39 | XMS_ITS | Encounter Summary ---
Author Organization [facility] [place] [address] Care Team Providers Care Beef Ribber Name Role Phone Maximilian Fall MD Primary Care Provider [phone] Reason for Visit * Reason Onset Date Comments Medication Refill 03/26/2018 Encounter Details Date Type Department Care Team (Late st Contact Info) Description 03/26/2018 Refill [place] [address] Bethany Marquez RN Social History Tobacco Use [...] 9:00 AM EDT Office Visit [place] [address] Dion Barlow MD [facility] [place] [address] 09/01/2024 9:40 AM EDT Office Visit Cardiology at [address] [place] [address] Franky Shaver MD [facility] [place] [address] 09/01/2024 11:20 AM EDT Office Visit Dermatology at [facility] [address] [place] [address] Gómez Mercer MD [facility] [place] [address] 09/21/2024 2:45 PM EDT Office Visit [facility] [place] [address] Trung Hoyos MD [facility] [place] [address] documented as of this encounter Visit Diagnoses Not on filedocumented in this encounter Care Teams Beef Ribber Relationship Specialty Start Date End Date Maximilian Fall MD [address] [facility] [place] [address] PCP - General 10/01/11 02/13/21 documented as of this encounter
--- OUTSIDE RECORDS SUMMARY | 2024-07-15 13:39 | XMS_ITS | Encounter Summary ---
Author Organization [facility] Address [facility] [place] [address] Care Team Providers Care Weatherization Specialist Name Role Phone Maximilian Fall MD Primary Care Provider [phone] Encounter Details Date Type Department Care Team (Late st Contact Info) Description 02/11/2019 Telephone [place] [address] Rachel Corral Social History Tobacco Use Types [...] - 02/11/2019 10:16 AM EDT Brian Rodriguez [id number] Diagnosis: [place] 1. Have you ever had a colonoscopy before? [x] YES [] NO If Yes, Date of Last [place]:_02/12/17 If yes, did you have any problems with the procedure? [] YES [x] NO Explain: What type of sedation was used: IV 2. Do you take any Blood Thinners? [] YES [x] NO If Yes, type: 3. Do you have a Pacemaker or Defibrillator device? [] YES [x] NO If Yes send [email or web address] message to [facility] ENDO DEVICE CHECK 4. Are [...] 9:00 AM EDT Office [place] [address] Dion Barlow MD [facility] [place] [address] 09/01/2024 9:40 AM EDT Office Visit Cardiology at [address] [place] [address] Franky Shaver MD [facility] [place] [address] 09/01/2024 11:20 AM EDT Office Visit Dermatology at [place] [address] [place] [address] Gómez Mercer MD [facility] [address] 09/21/2024 2:45 PM EDT Office Visit [place] [address] Trung Hoyos MD [facility] [place] [address] documented as of this encounter Visit Diagnoses Not on filedocumented in this encounter Care Teams Weatherization Specialist Relationship Specialty Start Date End Date Maximilian Fall MD [address] [place] [address] PCP - General 10/01/11 02/13/21 documented as of this encounter
--- OUTSIDE RECORDS SUMMARY | 2024-07-15 13:39 | XMS_ITS | Encounter Summary ---
Author Organization [facility] [place] [address] Care Team Providers Care Director Outpatient Services Name Role Phone Maximilian Fall MD Primary Care Provider [phone] Encounter Details Date Type Department Care Team (Latest Contact Info) Description 07/18/2016 2:18 PM EDT - 07/18/2016 11:59 PM EDT [place] [address] Left sided colitis, unspecified complication; Chronic ulcerative [...] AM EDT Office Visit [place] [address] Dion Barlow MD [facility] [place] [address] 09/01/2024 9:40 AM EDT Office Visit Cardiology at [address] [phone] Franky Shaver MD [facility] [address] 09/01/2024 11:20 AM EDT Office Visit Dermatology at [facility] [address] [place] [phone] Gómez Mercer MD [facility] DR [place] [address] 09/21/2024 2:45 PM EDT Office Visit Pain and Spine Center at [facility] [place] [address] Trung Hoyos MD [facility] [place] [address] documented as of this encounter Procedures Procedure Name Priority Date/Time Associated Diagnosis Comments CAMPYLOBACTER ANTIGEN Routine 07/18/2016 2:32 PM EDT Chronic ulcerative enterocolitis, unspecified complication Acute amebic dysentery C. DIFFICILE SCREEN Routine 07/18/2016 2 :32 PM EDT Chronic ulcerative enterocolitis, unspecified complication Acute amebic dysentery STOOL CULTURE SCREEN ([facility]/CGP/APD/[facility]H) Routine 07/18/2016 2:27 PM EDT Chronic ulcerative enterocolitis, unspecified complication Acute amebic dysentery CRYPTOSPORIDIUM OOCYST ANTIGEN ([facility]/CGP/APD) Routine 07/18/2016 2:27 PM EDT Left sided colitis, unspecified complication SHIGA TOXIN ASSAY Routine 07/18/2016 2:2 7 PM EDT Chronic ulcerative enterocolitis, unspecified complication Acute amebic dysentery GIARDIA/CRYPTOSPORIDIUM ANTIGENS ([facility]/CGP/APD/NLH) Routine 07/18/2016 2:27 PM EDT Left sided colitis, unspecified complication GIARDIA ANTIGEN ([facility]/CGP/APD/NLH) Routine 07/18/2016 2:27 PM EDT Left sided colitis, unspecified complication STOOL CULTURE Routine 07/18/2016 2:27 PM EDT Chronic ulcerative enterocolitis, unspecified complication Acute amebic dysentery documented in this encounter Results * Campylobacter Antigen (07/18/2016 2:32 PM EDT) Pathologist [facility] Campylobacter Ag Immunoassay Negative for Campylobacter Antigen [facility] Stool specimen (specimen) 07/18/2016 2:32 PM EDT 07/18/2016 2:32 PM EDT Narrative Resulting Agency Comment Spec In Lab L Karthik Barlow MD MICROBIOLOGY - GENER AL ORDERABLES Performing Organization Address City/[facility]/ZIP Co de Phone Number [facility] [place] [address] * C. Difficile Screen (07/18/2016 2:32 PM EDT) C Diff Interp Negative Negative [facility] Comment: C. diff ??Negative Clostridium difficile is not present in the specimen. If patient is having diarrhea suspected to be from an infectious cause, then Contact Precautions are still required. Stool specimen (specimen) 07/18/2016 2:32 PM EDT 07/18/2016 2:32 PM EDT Narrative Resulting Agency Comment Spec In Lab L Karthik Barlow MD MICROBIOLOGY - GENER AL ORDERABLES Performing Organization Address [facility] Co de Phone Number [facility] [place] [address] * Shiga Toxin Detection (07/18/2016 2:27 PM EDT) Shiga Toxin Assay EIA Negative for Shiga Toxin 1 EIA Negative for Shiga Toxin 2 [facility] Stool specimen (specimen) 07/18/2016 2:27 PM EDT 07/18/2016 2:32 PM EDT Narrative Resulting Agency Comment Spec In Lab Dion Barlow MD MICROBIOLOGY - GENER AL ORDERABLES Performing Organization Address City/[facility] Co de Phone Number [facility] [place] [address] * Stool culture (07/18/2016 2:27 PM EDT) Stool Culture No enteric pathogens isolated [facility] Stool specimen (specimen) 07/18/2016 2:27 PM EDT 07/18/2016 2:32 PM EDT Narrative Resulting Agency Comment Spec In Lab L Karthik Barlow MD MICROBIOLOGY - GENER AL ORDERABLES Performing Organization Address [facility] Co de Phone Number [facility] [place] [address] * Cryptosporidium Oocyst Antigen (07/18/2016 2:27 PM EDT) Cryptosporidium Antigen Negative Negative [facility] Stool specimen (specimen) 07/18/2016 2:27 PM EDT 07/18/2016 2:32 PM EDT Narrative Resulting Agency Comment Spec In Lab L Karthik Barlow MD MICROBIOLOGY - GENER AL ORDERABLES Performing Organization Address [facility] Co de Phone Number [facility] [place] [address] * Giardia antigen (07/18/2016 2:27 PM EDT) Giardia Antigen Negative Negative [facility] Comment:Examination for othe r intestinal parasites requires foreign travel history. Stool specimen (specimen) 07/18/2016 2:27 PM EDT 07/18/2016 2:32 PM EDT Narrative Resulting Agency Comment Spec In Lab L Karthik Barlow MD MICROBIOLOGY - GENER AL ORDERABLES Performing Organization Address [facility] Co de Phone Number [facility] [place] [address] documented in this encounter Visit Diagnoses Diagnosis Left sided colitis, unspecified complication Chronic ulcerative enterocolitis, unspecified complication Acute amebic dysentery Acute amebic dysentery without mention of abscess documented in this encounter Care Teams Director Outpatient Services Relationship Specialty Start Date End Date Maximilian Fall MD [address] [place] [address] PCP - General 10/01/11 02/13/21 documented as of this encounter
--- OUTSIDE RECORDS SUMMARY | 2024-07-15 13:39 | XMS_ITS | Encounter Summary ---
Author Organization [facility] [place] [address] Care Team Providers Care Aquatic Performer Name Role Phone Maximilian Fall MD Primary Care Provider [phone] Encounter Details Date Type Department Care Team (Latest Contact Info) Description 07/14/2016 11:55 AM EDT Laboratory Appointment Lab [address] [place] [phone] Chronic ulcerative enterocolitis, unspecified complication; Acute amebic [...] 9:00 AM EDT Office [place] [phone] Dion Barlow MD [facility] [place] [address] 09/01/2024 9:40 AM EDT Office Visit Cardiology at [address] [phone] Franky Shaver MD [facility] [place] [address] 09/01/2024 11:20 AM EDT Office Visit Dermatology at [facility] [address] [place] [address] Gómez Mercer MD [facility] DR EDDIE [place] [address] 09/21/2024 2:45 PM EDT Office Visit Pain and Spine Center at [facility] [place] [address] Trung Hoyos MD [facility] [place] [address] documented as of this encounter Procedures Procedure [...] 12:21 PM EDT) Neutrophil % 60.2 % [facility] Neutrophil Absolute 3.77 1.50 - 6.30 x10(3)/[facility] Lymph % 27.2 % [facility] Lymphocytes Abs 1.7 1.0 - 3.6 x10(3)/[facility] Monocyte % 9.0 % [facility] Monocyte Abs 0.6 0.2 - 1.0 x10(3)/[facility] Eos % 2.6 % [facility] Eosinophils Abs 0.2 0.0 - 0.5 x10(3)/[facility] Basophil % 0.5 % [facility] Baso Absolute 0.0 0.0 - 0.2 x10(3)/[facility] Immature Gran % 0.50 % [facility] Comment: Immature granulocytes(IG's)percentage and absolute count will include metamyelocytes, myelocytes, and promyelocytes. Blood smears from CBCs yielding IG's will be scanned manually for concordance. If this scan disagrees with the automated IG or if promyelocytes are noted, a manual differential will be performed. Immature Gran Absolute 0.03 0.00 - 0.05 x10(3)/[facility] Blood specimen (specimen) 07/14/2016 12:21 PM EDT 07/14/2016 12:29 PM EDT Narrative Resulting Agency Comment Spec In Lab L Karthik Barlow MD HEMATOLOGY ORDERABLE S [facility] [place] [address] * (ABNORMAL) Hemogram (07/14/2016 12:21 PM EDT) Pathologist [facility] White Blood Cell 6.2 4.0 - 10.0 x10(3)/mc L [facility] Red Blood Cell 4.11(L) 4.63 - 6.08 x10(6)/mc L [facility] Hemoglobin 13.4(L) 13.7 - 17.5 gm/dL [facility] Hematocrit 40.5 40.0 - 51.0 % [facility] Mean Cell Volume 98.5(H) 79.0 - 92.[address] [facility] Mean Cell Hemoglobin 32.6(H) 25.6 - 32.[address] [facility] Mean Cell Hemoglobin Concentration 33.1 32.0 - 36.5 gm/dL [facility] Platelet 214 145 - 370 x10(3)/mc L [facility] RDW Standard Deviation 47.4(H) 35.0 - 46.[address] [facility] RDW coefficient of variation 13.2 10.9 - 14.4 % [facility] Mean Platelet Volume 11.1 9.0 - 12.[address] [facility] NRBC% auto 0.0 % [facility] NRBC Absolute 0.000 0.000 - 0.012 x10(3)/mc L [facility] Blood specimen (specimen) 07/14/2016 12:21 PM EDT 07/14/2016 12:29 PM EDT Narrative Resulting Agency Comment Spec In Lab L Karthik Barlow MD HEMATOLOGY ORDERABLE S Performing Organization Address City/[facility]/ZIP Co de Phone Number [facility] [place] [address] * (ABNORMAL) Sedimentation rate (07/14/2016 12:21 PM EDT) Sedimentation Rate Automated 17(H) 0 - 15 mm/hr [facility] Blood specimen (specimen) 07/14/2016 12:21 PM EDT 07/14/2016 12:29 PM EDT Narrative Resulting Agency Comment Spec In Lab L Karthik Barlow MD HEMATOLOGY ORDERABLE S [facility] [place] [address] * Comprehensive metabolic panel (non-fasting) (07/14/2016 12:21 PM EDT) Glucose 147 65 - 199 mg/dL [facility] Comment:Diabetes: >=200 mg/d L plus symptoms Blood Urea Nitrogen 17 10 - 20 mg/dL [facility] Creatinine 1.04 0.80 - 1.50 mg/dL [facility] Comment: Please note that the pediatric reference intervals supplied above were not validated at [facility]. Results from pediatric patients should be interpreted in conjunction to the patient's age, height and muscle mass. Sodium 140 135 - 145 mmol/L [facility] Potassium 4.6 3.5 - 5.0 mmol/L [facility] Comment: Please note: ??Patients with WBC >100,000 may have falsely elevated Potassium levels. ??For accurate Potassium quantification in these patients send serum separator tube (gold top) for subsequent determinations. ??Contact the Clinical Chemistry Laboratory if there are any questions. Chloride 102 98 - 107 mmol/L [facility] Carbon Dioxide 25 22 - 31 mmol/L [facility] Anion Gap 13 5 - 15 mmol/L [facility] Calcium 9.7 8.5 - 10.5 mg/dL [facility] Protein, Total 7.9 6.1 - 8.0 gm/dL [facility] Albumin 4.4 3.2 - 5.2 gm/dL [facility] Aspartate Aminotransferase 15 0 - 39 unit/L [facility] Alanine Aminotransferase 20 0 - 55 unit/L [facility] Alkaline Phosphatase 65 40 - 120 unit/L [facility] Bilirubin, Total 0.4 0.2 - 1.3 mg/dL [facility] Bilirubin, Direct 0.1 0.0 - 0.3 mg/dL [facility] Est Glomerular [...] the following links into your internet browser. [email or web address] Blood specimen (specimen) 07/14/2016 12:21 PM EDT 07/14/2016 12:29 PM EDT Narrative Resulting Agency Comment Spec In Lab L Karthik Barlow MD CHEMISTRY ORDERABLES [facility] [place] [address] * High Sensitivity CRP (07/14/2016 12:21 PM EDT) [facility] C-Reactive Protein High Sensitivity 4.8 mg/L [facility] Comment: Interpretations: 1) For accurate [...] MD CHEMISTRY ORDERABLES 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
--- OUTSIDE RECORDS SUMMARY | 2024-07-15 13:39 | XMS_ITS | Encounter Summary ---
Author Organization [facility] Address [facility] [place] [address] Care Team Providers Care Network Security Consultant Name Role Phone Maximilian Fall MD Primary Care Provider [phone] Encounter Details Date Type Department Care Team (Latest Contact Info) Description 04/25/2019 10:00 AM EDT Office [place] [address] Marcelle Weinberg APRN [facility] [place] [address] Left sided colitis without complications Social History [...] and have it re read here at [facility] # Colonoscopy again spring 2020. # Avoid [...] ? Overview Note:? Colonoscopy 04/08/10 (Dr. Gomes [facility]) - inflammation only within the rectum and sigmoid; extent of the exam was to the hepatic flexure; biopsies proximal to the sigmoid nl ?? Repeat exam 11/27/11 ([facility] [...] 3.66) performed by Dion Osullivan MD at [facility] ??? PRO COLONOSCOPY, DIAGNOSTIC ?? 11/27/2011 ?? COLONOSCOPY, DIAGNOSTIC performed by Dion OSULLIVAN at [facility] ??? PRO COLONOSCOPY, DIAGNOSTIC ?? 07/13/2014 ?? COLONOSCOPY, DIAGNOSTIC performed by Dion Osullivan MD at [facility] ??? PRO SIGMOIDOSCOPY, DIAGNOSTIC ?? 03/16/2012 ?? FLEXIBLE SIGMOIDOSCOPY performed by YUDI MALLOY at [facility] ??? UPPER GI ENDOSCOPY, EXAM ?? 10/01/2012 ?? UPPER GI ENDOSCOPY performed by Dion OSULLIVAN at [facility] ? Social History ?? Socioeconomic [...] mg/L 5.0 (H) Surgical Pathology Report Unknown [id number] ... COLONOSCOPY Unknown [facility]... COLONOSCOPY COLONOSCOPY Collected: 02/22/19 0691 Resulting lab: PROVATION Value: [facility] Endoscopy Procedure Date: 02/22/2019 3:57 PM ? Patient Name: Brian Rodriguez ? Date of : 1950 ? Age: 68 ? Order #: [id number] ? Instrument Name: [id number] ? Procedure: ? Colonoscopy Indications: ? High [...] ?bowel preparation was evaluated using ?the BBPS ([place] Bowel Preparation ?Scale) with scores of: Right [...] HARVEY, Ana Verified: ??02/26/2019 ?Pathologist Performed at: ??-[facility] Dept. of Pathology, [place], [place] 03/07/19 CT abd/pelvis ( [facility]): Non [...] He had a CT abd/pelvis done at [facility] (03/07/19)when he presented to his PCP with [...] and have it re read here at [facility] # Colonoscopy again spring 2020. # Avoid [...] 9:00 AM EDT Office [place] [address] Dion Osullivan MD [facility] [place] [address] 09/01/2024 9:40 AM EDT Office Visit Cardiology at [address] [place] [address] Franky Shaver MD [facility] [place] [address] 09/01/2024 11:20 AM EDT Office Visit Dermatology at [facility] [address] [place] [address] Gómez Mercer MD [facility] DR EDDIE [place] [address] 09/21/2024 2:45 PM EDT Office Visit Pain and Spine Center at [facility] [place] [address] Trung Hoyos MD [facility] [place] [address] Scheduled Orders Name Type Priority Associated Diagnoses [...] 12:00 PM EDT) Neutrophil % 66.3 % [facility] Neutrophil Absolute 4.90 1.70 - 6.10 x10(3)/[facility] Lymph % 24.0 % [facility] Lymphocytes Abs 1.8 0.9 - 3.2 x10(3)/[facility] Monocyte % 6.8 % [facility] Monocyte Abs 0.5 0.3 - 0.9 x10(3)/[facility] Eos % 2.0 % [facility] Eosinophils Abs 0.2 0.0 - 0.4 x10(3)/[facility] Basophil % 0.5 % [facility] Baso Absolute 0.0 0.0 - 0.1 x10(3)/[facility] Immature Gran % 0.40 % [facility] Comment: Immature granulocytes(IG's)percentage and absolute count will include metamyelocytes, myelocytes, and promyelocytes. Blood smears from CBCs yielding IG's will be scanned manually for concordance. If this scan disagrees with the automated IG or if promyelocytes are noted, a manual differential will be performed. Immature Gran Absolute 0.03 0.00 - 0.04 x10(3)/[facility] Blood specimen (specimen) 04/25/2019 12:00 PM EDT 04/25/2019 12:03 PM EDT Narrative Resulting Agency Comment Spec In Lab Marcelle Weinberg CLINICAL ANALYST HEMATOLOGY ORDERA BLES [facility] [place] [address] * (ABNORMAL) Hemogram (04/25/2019 12:00 PM EDT) White Blood Cell 7.4 4.0 - 9.5 x10(3)/mc L [facility] Red Blood Cell 4.22(L) 4.58 - 5.54 x10(6)/mc L [facility] Hemoglobin 13.7 13.7 - 16.5 gm/dL [facility] Hematocrit 41.9 40.5 - 48.5 % [facility] Mean Cell Volume 99.3(H) 82.9 - 93.1 fL [facility] Mean Cell Hemoglobin 32.5(H) 27.5 - 32.1 pg [facility] Mean Cell Hemoglobin Concentration 32.7 32.0 - 35.7 gm/dL [facility] Platelet 239 145 - 357 x10(3)/mc L [facility] RDW Standard Deviation 45.9(H) 36.0 - 45.0 fL [facility] RDW coefficient of variation 12.6 11.4 - 13.8 % [facility] Mean Platelet Volume 11.0 7.6 - 12.9 fL [facility] NRBC% auto 0.0 % [facility] NRBC Absolute 0.000 0.000 - 0.000 x10(3)/mc L [facility] Blood specimen (specimen) 04/25/2019 12:00 PM EDT 04/25/2019 12:03 PM EDT Narrative Resulting Agency Comment Spec In Lab Marcelle Weinberg CLINICAL ANALYST HEMATOLOGY ORDERA BLES Performing Organization Address [facility] Co de Phone Number [facility] [place] [address] * CRP, acute inflammation (04/25/2019 12:00 PM EDT) C-Reactive Protein 2.5 <=4.9 mg/L [facility] Blood specimen (specimen) 04/25/2019 12:00 PM EDT 04/25/2019 12:03 PM EDT Narrative Resulting Agency Comment Spec In Lab Marcelle Weinberg CLINICAL ANALYST CHEMISTRY ORDERAB LES Performing Organization Address City/[facility]/ZIP Co de Phone Number [facility] [place] [address] * (ABNORMAL) Sedimentation rate (04/25/2019 12:00 PM EDT) Sedimentation Rate Automated 28(H) 0 - 15 mm/hr [facility] Blood specimen (specimen) 04/25/2019 12:00 PM EDT 04/25/2019 12:03 PM EDT Narrative Resulting Agency Comment Spec In Lab Marcelle Weinberg CLINICAL ANALYST HEMATOLOGY ORDERA BLES [facility] [place] [address] * (ABNORMAL) Comprehensive metabolic panel (non-fasting) (04/25/2019 12:00 PM EDT) Glucose 84 65 - 199 mg/dL [facility] Comment:Diabetes: >=200 mg/d L plus symptoms Blood Urea Nitrogen 15 10 - 20 mg/dL [facility] Creatinine 1.14 0.80 - 1.50 mg/dL [facility] Sodium 140 135 - 145 mmol/L [facility] Potassium 4.8 3.5 - 5.0 mmol/L [facility] [...] mg/dL [facility] Protein, Total 8.5(H) 6.1 - 8.0 gm/dL [facility] Albumin 4.4 3.2 - 5.2 gm/dL [facility] Aspartate Aminotransferase 12 0 - 39 unit/L [facility] Alanine Aminotransferase 14 0 - 55 unit/L [facility] Alkaline Phosphatase 70 40 - 120 unit/L [facility] Bilirubin, Total 0.4 0.2 - 1.3 mg/dL [facility] Est Glomerular Filtration Rate 65 >=60 mL/min/1. 73 m?? [facility] Comment: The eGFR was calculated using the CKD-EPI equation. As with all creatinine based estimates of kidney function, eGFR values calculated with the CKD-EPI equation are not accurate in patients with acute kidney failure, extremes of body mass or the acutely ill. [email or web address]Enk[facility] eGFR 75 >=60 mL/min/1. 73 m?? [facility] Comment: The eGFR was calculated using the CKD-EPI equation. As with all creatinine based estimates of kidney function, eGFR values calculated with the CKD-EPI equation are not accurate in patients with acute kidney failure, extremes of body mass or the acutely ill. [email or web address]GATEnkf Blood specimen (specimen) 04/25/2019 12:00 PM EDT 04/25/2019 12:03 PM EDT Narrative Resulting Agency Comment Spec In Lab Marcelle Weinberg CLINICAL ANALYST CHEMISTRY ORDERAB LES Performing Organization Address City/State/[facility] Co de Phone Number [facility] [place] [address] documented in this encounter Visit Diagnoses Diagnosis Left sided colitis without complications Left sided ulcerative (chronic) colitis documented in this encounter Care Teams Network Security Consultant Relationship Specialty Start Date End Date Maximilian Fall MD [address] [place] [address] PCP - General 10/01/11 02/13/21 documented as of this encounter
--- OUTSIDE RECORDS SUMMARY | 2024-07-15 13:39 | XMS_ITS | Encounter Summary ---
Author Organization [facility] [place] [address] Care Team Providers Care Supplier Manager Name Role Phone Maximilian Fall MD Primary Care Provider [phone] Encounter Details Date Type Department Care Team (Late st Contact Info) Description 03/26/2018 Telephone [place] [phone] Bethany Trivedi, RN Social History Tobacco Use [...] difficulty getting Cortifoam because it is on lap maker back order. Has been diarrhea and bleeding [...] 9:00 AM EDT Office [place] [address] Dion Barlow MD [facility] [place] [address] 09/01/2024 9:40 AM EDT Office Visit Cardiology at [address] [phone] Franky Shaver MD [facility] [place] [address] 09/01/2024 11:20 AM EDT Office Visit Dermatology at [address] [place] [address] Gómez Mercer MD [facility] [place] [address] 09/21/2024 2:45 PM EDT Office Visit Pain [place] [address] Trung Hoyos MD [facility] [place] [address] documented as of this encounter Visit Diagnoses Not on filedocumented in this encounter Care Teams Supplier Manager Relationship Specialty Start Date End Date Maximilian Fall MD [address] [facility] [place] [address] PCP - General 10/01/11 02/13/21 documented as of this encounter
--- OUTSIDE RECORDS SUMMARY | 2024-07-15 13:39 | XMS_ITS | Encounter Summary ---
Author Organization [facility] Address [facility] [place] [address] Care Team Providers Care Hybrid Car Mechanic Name Role Phone Maximilian Fall MD Primary Care Provider [phone] Reason for Visit * Reason Comments Follow-up Encounter Details Date Type Department Care Team (Late st Contact Info) Description 10/29/2017 10:30 AM EST Office [place] [address] Dion Barlow MD [facility] [place] [address] Left sided ulcerative colitis with complication Social [...] Overview Note: ? Colonoscopy 04/08/10 (Dr. Gomes [facility]) - inflammation only within the rectum [...] months. 15 min of this 25 min [id number]-[id number] visit was spent counseling the patient in the issues outlined above. Davina Barlow MD Curtain Cutter Handstore clerk Section of Gastroenterology [place] [address] CC: Maximilian Fall MD [address] [place] [address] documented in this encounter Plan of Treatment Upcoming Encounters Date Type Department Care Team (Late st Contact Info) Description 08/15/2024 9:00 AM EDT Office [place] [address] Dion Barlow MD [facility] [place] [address] 09/01/2024 9:40 AM EDT Office Visit Cardiology at [address] [place] [address] Franky Shaver MD [facility] [place] [address] 09/01/2024 11:20 AM EDT Office Visit Dermatology at [facility] [address] [place] [address] Gómez Mercer MD [facility] [address] [place] [address] 09/21/2024 2:45 PM EDT Office Visit Pain and Spine Center at [facility] [place] [address] Trung Hoyos MD [facility] [place] [address] documented as of this encounter Visit Diagnoses Diagnosis Left sided ulcerative colitis with complication documented in this encounter Care Teams Hybrid Car Mechanic Relationship Specialty Start Date End Date Maximilian Fall MD [address] [place] [address] PCP - General 10/01/11 02/13/21 documented as of this encounter
--- OUTSIDE RECORDS SUMMARY | 2024-07-15 13:39 | XMS_ITS | Encounter Summary ---
Author Organization [facility] [place] [address] Care Team Providers Care Oil Field Pumper Name Role Phone Maximilian Fall MD Primary Care Provider [phone] Encounter Details Date Type Department Care Team (Late st Contact Info) Description 03/07/2019 Ancillary Procedure [place] [phone] Dion Barlow MD [facility] [address] Social History Tobacco Use Types Packs/Day Years [...] 9:00 AM EDT Office Visit [place] [phone] Dion Barlow MD [facility] [place] [address] 09/01/2024 9:40 AM EDT Office Visit Cardiology at [address] [place] [address] Franky Shaver MD [facility] [place] [address] 09/01/2024 11:20 AM EDT Office Visit Dermatology at [facility] [address] [place] [phone] Gómez Mercer MD [facility] DR [place] [address] 09/21/2024 2:45 PM EDT Office Visit [facility] [place] [address] Trung Hoyos MD [facility] [place] [address] documented as of this encounter Procedures Procedure Name Priority Date/Time Associated Diagnosis Comments FILM LIBRARY STORAGE ONLY CT ABDOMEN AND PELVIS Routine 03/07/2019 12:00 AM EDT documented in this encounter Results * Film Library- Storage Only CT Abdomen & Pelvis (03/07/2019 12:00 AM EDT) Narrative [facility] - 04/27/2019 3:15 AM EDT This exam is auto-finalizing. It's purpose is for storage only. L Karthik Barlow MD IMG FILM LIBRARY ORD ERABLES [place], [place] documented in this encounter Visit Diagnoses Not on filedocumented in this encounter Care Teams Oil Field Pumper Relationship Specialty Start Date End Date Maximilian Fall MD [address] [place] [address] PCP - General 10/01/11 02/13/21 documented as of this encounter
--- OUTSIDE RECORDS SUMMARY | 2024-07-15 13:39 | XMS_ITS | Encounter Summary ---
Author Organization [facility] Address [facility] [place] [address] Care Team Providers Care Garage Construction Equipment Mechanic Name Role Phone Maximilian Fall MD Primary Care Provider [phone] Encounter Details Date Type Department Care Team (Latest Contact Info) Description 11/02/2018 1:00 PM EST Office [place] [address] Marcelle Weinberg APRN [facility] [address] Left sided colitis without complications Social History [...] ? Overview Note:? Colonoscopy 04/08/10 (Dr. Gomes [facility]) - inflammation only within the [...] he underwent left inguinal hernia repair at [facility] 2 weeks ago. Once he was [...] 3.66) performed by Dion Osullivan MD at [facility] ??? PRO COLONOSCOPY, DIAGNOSTIC 11/27/2011 COLONOSCOPY, DIAGNOSTIC performed by Dion OSULLIVAN at [facility] ??? PRO COLONOSCOPY, DIAGNOSTIC 07/13/2014 COLONOSCOPY, DIAGNOSTIC performed by Dion Osullivan MD at [facility] ??? PRO SIGMOIDOSCOPY, DIAGNOSTIC 03/16/2012 FLEXIBLE SIGMOIDOSCOPY performed by YUDI MALLOY at [facility] ??? UPPER GI ENDOSCOPY, EXAM 10/01/2012 UPPER GI ENDOSCOPY performed by Dion OSULLIVAN at [facility] Social History Socioeconomic History ??? Marital [...] 9:00 AM EDT Office [place] [address] Dion Osullivan MD [facility] [place] [address] 09/01/2024 9:40 AM EDT Office Visit Cardiology at [address] [place] [address] Franky Shaver MD [facility] [place] [address] 09/01/2024 11:20 AM EDT Office Visit Dermatology at [facility] [address] [place] [phone] Gómez Mercer MD [facility] [place] [address] 09/21/2024 2:45 PM EDT Office Visit [place] [phone] Trung Hoyos MD [facility] [place] [address] documented as of this encounter Procedures Procedure [...] Differential, Automated (11/02/2018 2:35 PM EST) Pathologist [facility] Neutrophil % 61.6 % [facility] Neutrophil Absolute 4.08 1.70 - 6.10 x10(3)/[facility] LAB[facility] Lymph % 27.2 % [facility] Lymphocytes Abs 1.8 0.9 - 3.2 x10(3)/[facility] Monocyte % 6.9 % [facility] Monocyte Abs 0.5 0.3 - 0.9 x10(3)/[facility]OR[facility] Eos % 2.9 % [facility] Eosinophils Abs 0.2 0.0 - 0.4 x10(3)/[facility] Basophil % 0.8 % [facility] Baso Absolute 0.0 0.0 - 0.1 x10(3)/[facility]OR[facility] Immature Gran % 0.60 % [facility] Comment: Immature granulocytes(IG's)percentage and absolute count will include metamyelocytes, myelocytes, and promyelocytes. Blood smears from CBCs yielding IG's will be scanned manually for concordance. If this scan disagrees with the automated IG or if promyelocytes are noted, a manual differential will be performed. Immature Gran Absolute 0.04 0.00 - 0.04 x10(3)/[facility] Blood specimen (specimen) 11/02/2018 2:35 PM EST 11/02/2018 2:42 PM EST Narrative Resulting Agency Comment Spec In Lab Marcelle Weinberg FURNITURE FINISHER HEMATOLOGY ORDERA BLES [facility] [place] [address] * (ABNORMAL) Hemogram (11/02/2018 2:35 PM EST) Pathologist [facility] White Blood Cell 6.6 4.0 - 9.5 x10(3)/[facility] LABOR[facility] Red Blood Cell 4.08(L) 4.58 - 5.54 x10(6)/mc L [facility] Hemoglobin 13.1(L) 13.7 - 16.5 gm/dL [facility] Hematocrit 40.0(L) 40.5 - 48.5 % [facility] Mean Cell Volume 98.0(H) 82.9 - 93.1 fL [facility] Mean Cell Hemoglobin 32.1 27.5 - 32.1 pg [facility] Mean Cell Hemoglobin Concentration 32.8 32.0 - 35.7 gm/dL [facility] Platelet 236 145 - 357 x10(3)/[facility] LABORATORY RDW Standard Deviation 44.3 36.0 - 45.0 [facility] LABORATORY RDW coefficient of variation 12.3 11.4 - 13.8 % [facility] Mean Platelet Volume 10.6 7.6 - 12.9 [facility] LABORATORY NRBC% auto 0.0 % [facility] NRBC Absolute 0.000 0.000 - 0.000 x10(3)/[facility] Blood specimen (specimen) 11/02/2018 2:35 PM EST 11/02/2018 2:42 PM EST Narrative Resulting Agency Comment Spec In Lab Marcelle Weinberg FURNITURE FINISHER HEMATOLOGY ORDERA BLES [facility] [place] [address] * (ABNORMAL) CRP, acute inflammation (11/02/2018 2:35 PM EST) [facility] C-Reactive Protein 5.0(H) <=4.9 mg/L [facility] Blood specimen (specimen) 11/02/2018 2:35 PM EST 11/02/2018 2:42 PM EST Narrative Resulting Agency Comment Spec In Lab Marcelle Weinberg FURNITURE FINISHER CHEMISTRY ORDERAB LES Performing Organization Address City/[facility]/ZIP Co de Phone Number [facility] [place] [address] * (ABNORMAL) Sedimentation rate (11/02/2018 2:35 PM EST) Sedimentation Rate Automated 27(H) 0 - 15 mm/hr [facility] Blood specimen (specimen) 11/02/2018 2:35 PM EST 11/02/2018 2:42 PM EST Narrative Resulting Agency Comment Spec In Lab Marcelle Weinberg FURNITURE FINISHER HEMATOLOGY ORDERA BLES Performing Organization Address [facility] Co de Phone Number [facility] [place] [address] * (ABNORMAL) Comprehensive metabolic panel (non-fasting) (11/02/2018 2:35 PM EST) Glucose 87 65 - 199 mg/dL [facility] Comment:Diabetes: >=200 mg/d L plus symptoms Blood Urea Nitrogen 15 10 - 20 mg/dL [facility] Creatinine 1.03 0.80 - 1.50 mg/dL [facility] Sodium 140 135 - 145 mmol/L [facility] Potassium 4.3 3.5 - 5.0 mmol/L [facility] Comment: Please note: ??Patients with WBC >100,000 may have falsely elevated Potassium levels. ??For accurate Potassium quantification in these patients send serum separator tube (gold top) for subsequent determinations. ??Contact the Clinical Chemistry Laboratory if there are any questions. Chloride 103 98 - 107 mmol/L [facility] Carbon Dioxide 26 22 - 31 mmol/L [facility] Anion Gap 11 5 - 15 mmol/L [facility] Calcium 9.7 8.5 - 10.5 mg/dL [facility] Protein, Total 8.1(H) 6.1 - 8.0 gm/dL [facility] Albumin 4.0 3.2 - 5.2 gm/dL [facility] Aspartate Aminotransferase 12 0 - 39 unit/L [facility] Alanine Aminotransferase 14 0 - 55 unit/L [facility] Alkaline Phosphatase 73 40 - 120 unit/L [facility] Bilirubin, Total 0.4 0.2 - 1.3 mg/dL [facility] Est Glomerular Filtration Rate 73 >=60 mL/min/1. 73 m?? [facility] Comment: The eGFR was calculated using the CKD-EPI equation. As with all creatinine based estimates of kidney function, eGFR values calculated with the CKD-EPI equation are not accurate in patients with acute kidney failure, extremes of body mass or the acutely ill. [email or web address]/[facility]LERnkf eGFR 85 >=60 mL/min/1. 73 m?? [facility] Comment: The eGFR was calculated using the CKD-EPI equation. As with all creatinine based estimates of kidney function, eGFR values calculated with the CKD-EPI equation are not accurate in patients with acute kidney failure, extremes of body mass or the acutely ill. [email or web address]/[facility]LERnkf Blood specimen (specimen) 11/02/2018 2:35 PM EST 11/02/2018 2:42 PM EST Narrative Resulting Agency Comment Spec In Lab Marcelle Weinberg FURNITURE FINISHER CHEMISTRY ORDERAB LES [facility] [place] [address] documented in this encounter Visit Diagnoses Diagnosis Left sided colitis without complications Left sided ulcerative (chronic) colitis documented in this encounter Care Teams Garage Construction Equipment Mechanic Relationship Specialty Start Date End Date Maximilian Fall MD [address] [place] [address] PCP - General 10/01/11 02/13/21 documented as of this encounter
--- OUTSIDE RECORDS SUMMARY | 2024-07-15 13:39 | XMS_ITS | Encounter Summary ---
Author Organization [facility] [place] [address] Care Team Providers Care Clinical Research Tech Name Role Phone Maximilian Fall MD Primary Care Provider [phone] Encounter Details Date Type Department Care Team (Late st Contact Info) Description 07/07/2016 Telephone [place] [address] Bethany Trivedi RN Social History Tobacco Use [...] EDT Cortifoam approved 07/07/16 until furhter notice [place] id# [id number] * Telephone Encounter - Bethany Trivedi RN - 07/07/2016 12:10 PM EDT Formulary exception form sent in for Cortifoam enemas documented in this encounter Plan of Treatment Upcoming Encounters Date Type Department Care Team (Late st Contact Info) Description 08/15/2024 9:00 AM EDT Office Visit [place] [address] Dion Barlow MD [facility] [place] [address] 09/01/2024 9:40 AM EDT Office Visit Cardiology at [address] [place] [address] Franky Shaver MD [facility] [place] [address] 09/01/2024 11:20 AM EDT Office Visit Dermatology at [place] [address] [place] [address] Gómez Mercer MD [facility] [place] [address] 09/21/2024 2:45 PM EDT Office Visit Pain [place] [address] Trung Hoyos MD [facility] [address] documented as of this encounter Visit Diagnoses Not on filedocumented in this encounter Care Teams Clinical Research Tech Relationship Specialty Start Date End Date Maximilian Fall MD [address] [place] [address] PCP - General 10/01/11 02/13/21 documented as of this encounter
--- OUTSIDE RECORDS SUMMARY | 2024-07-15 13:39 | XMS_ITS | Encounter Summary ---
Author Organization [facility] Address [facility] [place] [address] Care Team Providers Care Heel Turner Name Role Phone Maximilian Fall MD Primary Care Provider [phone] Reason for Visit * Reason Comments Follow-up Encounter Details Date Type Department Care Team (Latest Contact Info) Description 11/10/2016 8:30 AM EST Office [place] [address] Dion Barlow MD [facility] [place] [address] Ulcerative rectosigmoiditis with rectal bleeding Social History [...] Overview Note: ?? Colonoscopy 04/08/10 (Dr. Gomes [facility]) - inflammation only within the rectum and sigmoid; extent of the exam was to the hepatic flexure; biopsies proximal to the sigmoid nl ?? Repeat exam [facility]27/11 [facility] [...] months. 20 min of this 25 min [id number] visit was spent counseling the patient in the issues outlined above. Davina Barlow MD Follow Up Manageroracle fusion consultant Section of Gastroenterology [place] [address] documented in this encounter Plan of Treatment Upcoming Encounters Date Type Department Care Team (Late st Contact Info) Description 08/15/2024 9:00 AM EDT Office [place] [address] Dion Barlow MD [facility] [place] [address] 09/01/2024 9:40 AM EDT Office Visit Cardiology at [address] [phone] Franky Shaver MD [facility] [place] [address] 09/01/2024 11:20 AM EDT Office Visit Dermatology at [facility] [address] [place] [address] Gómez Mercer MD [facility] [address] EDDIE [place] [address] 09/21/2024 2:45 PM EDT Office Visit Pain and Spine Center at [facility] [place] [address] Trung Hoyos MD [facility] [place] [address] Scheduled Orders Name Type Priority Associated Diagnoses Orde r Schedule COLONOSCOPY Procedures Routine Ulcerative rectosigmoiditis with rectal bleeding Ordered: 11/10/2016 documented as of this encounter Visit Diagnoses Diagnosis Ulcerative rectosigmoiditis with rectal bleeding documented in this encounter Care Teams Heel Turner Relationship Specialty Start Date End Date Maximilian Fall MD [address] [place] [address] PCP - General 10/01/11 02/13/21 documented as of this encounter
--- OUTSIDE RECORDS SUMMARY | 2024-07-15 13:39 | XMS_ITS | Encounter Summary ---
Author Organization [facility] [place] [address] Care Team Providers Care Medical Officer Name Role Phone Maximilian Fall MD Primary Care Provider [phone] Reason for Visit * Reason Onset Date Comments Medication Refill 03/12/2018 Encounter Details Date Type Department Care Team (Late st Contact Info) Description 03/12/2018 Refill [place] [address] Bethany Trivedi, RN Pain in right hip; [...] 9:00 AM EDT Office Visit [place] [address] Dion Barlow MD [facility] [place] [address] 09/01/2024 9:40 AM EDT Office Visit Cardiology at [address] [place] [address] Franky Shaver MD [facility] [place] [address] 09/01/2024 11:20 AM EDT Office Visit Dermatology at [facility] [address] [place] [address] Gómez Mercer MD [facility] DR [place] [address] 09/21/2024 2:45 PM EDT Office Visit [facility] [place] [address] Trung Hoyos MD [facility] [address] documented as of this encounter Visit Diagnoses Diagnosis Pain in right hip Pain in joint, pelvic region and thigh Chronic ulcerative enterocolitis, unspecified complication documented in this encounter Care Teams Medical Officer Relationship Specialty Start Date End Date Maximilian Fall MD [address] [place] [address] PCP - General 10/01/11 02/13/21 documented as of this encounter
--- OUTSIDE RECORDS SUMMARY | 2024-07-15 13:40 | XMS_ITS | Encounter Summary ---
Author Organization [facility] Address [facility] [place] [address] Care Team Providers Care Contracting Analyst Name Role Phone Maximilian Fall MD Primary Care Provider [phone] Reason for Visit * Reason Comments Follow-up Encounter Details Date Type Department Care Team (Late st Contact Info) Description 12/04/2015 3:30 PM EST Office [place] [address] Marcelle Weinberg, JAZMINE [facility] [place] [address] Other ulcerative colitis Social History Tobacco Use [...] Overview Note: ?? Colonoscopy 04/08/10 (Dr. Gomes [facility]) - inflammation only within the rectum and sigmoid; extent of the exam was to the hepatic flexure; biopsies proximal to the sigmoid nl ?? Repeat exam 11/27/11 ([facility]): mildly active colitis in the sigmoid colon [...] to move his bowels. Still formed stool. [place] better after defecation. Eating well. Weight stable. [...] COLONOSCOPY, DIAGNOSTIC performed by Dion OSULLIVAN at [facility] ??? Pro sigmoidoscopy, diagnostic 03/16/2012 FLEXIBLE SIGMOIDOSCOPY performed by YUDI MALLOY at [facility] ??? Upper gi endoscopy, exam 10/01/2012 UPPER GI ENDOSCOPY performed by Dion OSULLIVAN at [facility] ??? Pro colonoscopy, diagnostic 07/13/2014 COLONOSCOPY, DIAGNOSTIC performed by Dion Osullivan MD at [facility] History Social History ??? [...] UA Latest Range: Clear Hazy (A) Spec [place] UA Latest Range: 1.002-1.030 1.020 pH UA [...] 9:00 AM EDT Office [place] [address] Dion Osullivan MD [facility] [address] 09/01/2024 9:40 AM EDT Office Visit Cardiology at [address] [address] Franky Shaver MD [facility] [place] [address] 09/01/2024 11:20 AM EDT Office Visit Dermatology at [address] [address] Gómez Mercer MD [facility] [place] [address] 09/21/2024 2:45 PM EDT Office Visit [place] [address] Trung Hoyos MD [facility] [place] [address] documented as of this encounter Visit Diagnoses Diagnosis Other ulcerative colitis documented in this encounter Care Teams Contracting Analyst Relationship Specialty Start Date End Date Maximilian Fall MD [address] [place] [address] PCP - General 10/01/11 02/13/21 documented as of this encounter
--- OUTSIDE RECORDS SUMMARY | 2024-07-15 13:40 | XMS_ITS | Encounter Summary ---
Author Organization [facility] [place] [address] Care Team Providers Care Tobacco Primer Machine Operator Name Role Phone Maximilian Fall MD Primary Care Provider [phone] Encounter Details Date Type Department Care Team (Late Contact Info) Description 11/06/2015 Orders [place] [phone] Marcelle Weinberg, JAZMINE [facility] [place] [address] Ulcerative colitis without complications Social History Tobacco [...] AM EDT Office Visit [place] [phone] Dion Barlow MD [facility] [place] [address] 09/01/2024 9:40 AM EDT Office Visit Cardiology at [address] [place] [phone] Franky Shaver MD [facility] [place] [address] 09/01/2024 11:20 AM EDT Office Visit Dermatology at [facility] [address] [place] [phone] Gómez Mercer MD [facility] DR [place] [address] 09/21/2024 2:45 PM EDT Office Visit Pain and Spine Center at [facility] [place] [phone] Trung Hoyos MD [facility] [place] [address] documented as of this encounter Visit Diagnoses Diagnosis Ulcerative colitis without complications Ulcerative colitis, unspecified documented in this encounter Care Teams Tobacco Primer Machine Operator Relationship Specialty Start Date End Date Maximilian Fall MD [address] [facility] [place] [address] PCP - General 10/01/11 02/13/21 documented as of this encounter
--- OUTSIDE RECORDS SUMMARY | 2024-07-15 13:40 | XMS_ITS | Encounter Summary ---
Author Organization [facility] Address [facility] [place] [id number] Care Team Providers Care Insole Taper Name Role Phone Maximilian Fall MD Primary Care Provider Reason for Referral * Diagnostic Test (Routine) - Closed Specialty Diagnoses / Procedures Referred By Contac t Referred To Contact Radiology Diagnoses Postoperative wound abscess, initial encounter Procedures CT Retroperitoneal Abscess Drain Minnie Johnson MD [facility] [place] [address] [facility] [place] [address] Referral ID Status Reason Start Date Expiration Date V isits Requested Visits Authorized [id number] Closed Specialty Service Requested 03/22/2016 03/22/2017 1 1 Encounter Details Date Type Department Care Team (Late st Contact Info) Description 03/22/2016 Orders [place] [address] Minnie Johnson MD [facility] [place] [address] Postoperative wound abscess, initial encounter [...] : 1950 Referring Physician: Dr. Guerin from [facility] Indication: RLQ post-operative abscess Planned Procedure: CT guided abscess drain placement Chief Complaint/HPI: 65 y.o. male with PMHx significant for asthma, diabetes, and ulcerative colitis who is status post laparoscopic appendectomy on 03/13/2016 who noted RLQ pain several days post-op.He presented to [facility] ED and underwent a CT scan with findings consistent with RLQ abscess. We have been consulted for CT guided abscess drain placement. The patient has been admitted to [facility] and will be transferred back to [facility] following the procedure. OSH Labs: WBC 10.2, [...] Hurtado. Minnie Johnson MD Radiology, PGY-2 Pager [phone] documented in this encounter Plan of Treatment Upcoming Encounters Date Type Department Care Team (Late st Contact Info) Description 08/15/2024 9:00 AM EDT Office Visit [place] [address] Dion Barlow MD [facility] [place] [address] 09/01/2024 9:40 AM EDT Office Visit Cardiology at [address] [place] [address] Franky Shaver MD [facility] [place] [address] 09/01/2024 11:20 AM EDT Office Visit Dermatology at [facility] [address] [place] [address] Gómez Mercer MD [facility] DR EDDIE [place] [address] 09/21/2024 2:45 PM EDT Office Visit Pain and Spine Center at [facility] [place] [phone] Trung Hoyos MD [facility] [place] [address] documented as of this encounter Results * CT Retroperitoneal Abscess Drain (03/22/2016 12:34 PM EDT) Anatomical Region Laterality Modality Abdomen Computed Tomogra phy Narrative 03/22/2016 1:02 PM EDT VIR PROCEDURE NOTE Procedure: CT-guided RLQ?? drainage catheter placement (ACC # [id number]) Indication : 65 y.o. male with PMHx significant for asthma, diabetes, and ulcerative colitis who is status post laparoscopic appendectomy on 03/13/2016 who noted RLQ pain several days post-op. He presented to [facility] ED and underwent a CT scan with findings consistent with RLQ abscess. We have been consulted for CT guided abscess drain placement. The patient has been admitted to [facility] and will be transferred back to [facility] following the procedure. Technique: After discussing risks [...] encounter documented in this encounter Care Teams Insole Taper Relationship Specialty Start Date End Date Maximilian Fall MD [address] [place] [address] PCP - General 10/01/11 02/13/21 documented as of this encounter
--- OUTSIDE RECORDS SUMMARY | 2024-07-15 13:40 | XMS_ITS | Encounter Summary ---
Author Organization [facility] Address [facility] [place] [address] Care Team Providers Care Public Relations Writer Name Role Phone Maximilian Fall MD Primary Care Provider [phone] Encounter Details Date Type Department Care Team (Late st Contact Info) Description 09/11/2014 Orders Only [place] [phone] Bethany Trivedi RN Other ulcerative colitis (Primary [...] 9:00 AM EDT Office Visit [place] [phone] Dion Barlow MD [facility] [place] [address] 09/01/2024 9:40 AM EDT Office Visit Cardiology at [address] [phone] Franky Shaver MD [facility] [place] [address] 09/01/2024 11:20 AM EDT Office Visit Dermatology at [facility] [address] [place] [address] Gómez Mercer MD [facility] DR [place] [address] 09/21/2024 2:45 PM EDT Office Visit Pain and Spine Center at [facility] [place] [address] Trung Hoyos MD [facility] [place] [address] documented as of this encounter Visit Diagnoses Diagnosis Other ulcerative colitis- Primary documented in this encounter Care Teams Public Relations Writer Relationship Specialty Start Date End Date Maximilian Fall MD [address] [place] [address] PCP - General 10/01/11 02/13/21 documented as of this encounter
--- OUTSIDE RECORDS SUMMARY | 2024-07-15 13:40 | XMS_ITS | Encounter Summary ---
Author Organization [facility] [place] [address] Care Team Providers Care Desk Director Name Role Phone Maximilian Fall MD Primary Care Provider [phone] Reason for Visit * Reason Comments Follow-up Encounter Details Date Type Department Care Team (Late st Contact Info) Description 11/06/2015 11:00 AM EST Office Visit [place] [address] Marcelle Weinberg, JAZMINE [facility] [place] [address] Chronic ulcerative enterocolitis, unspecified complication; Abdominal pain, [...] Progress Notes * Marcelle Weinberg Dg Conte, IT INFRASTRUCTURE MANAGER - 11/06/2015 10:28 AM EST Patient Active Problem List Diagnosis ??? Ulcerative colitis Overview Note: ?? Colonoscopy 04/08/10 (Dr. Gomes [facility]) - inflammation only within the [...] COLONOSCOPY, DIAGNOSTIC performed by Dion OSULLIVAN at [facility] ENDOSCOPY ??? Pro sigmoidoscopy, diagnostic 03/16/2012 FLEXIBLE SIGMOIDOSCOPY performed by YUDI MALLOY at [facility] ENDOSCOPY ??? Upper gi endoscopy, exam 10/01/2012 UPPER GI ENDOSCOPY performed by Dion OSULLIVAN at [facility] ENDOSCOPY ??? Pro colonoscopy, diagnostic 07/13/2014 COLONOSCOPY, DIAGNOSTIC performed by Dion Osullivan MD at [facility] ENDOSCOPY Physical Exam Constitutional: He appears [...] 9:00 AM EDT Office Visit [place] [address] Dion Osullivan MD [facility] [place] [address] 09/01/2024 9:40 AM EDT Office Visit Cardiology at [address] [place] [address] Franky Shaver MD [facility] [place] [address] 09/01/2024 11:20 AM EDT Office Visit Dermatology at [facility] [address] [place] [address] Gómez Mercer MD [facility] [place] [address] 09/21/2024 2:45 PM EDT Office Visit Pain and Spine Center at [facility] [place] [phone] Trung Hoyos MD [facility] [place] [address] documented as of this encounter Results * C. Difficile Screen (11/06/2015 2:30 PM EST) Pathologist [facility] C Diff Interp Negative Negative CERNER MILLENNIUM Stool specimen (specimen) 11/06/2015 2:30 PM EST 11/06/2015 2:30 PM EST Narrative Resulting Agency Comment Spec In Lab L Karthik Osullivan MD MICROBIOLOGY - GENER AL ORDERABLES [facility] * (ABNORMAL) Urinalysis with reflex Culture [...] Urine Dipstick Hazy(A) Clear CERNER MILLENNIUM Specific [place] Urine Automated 1.020 1.002 - 1.030 CERNER [...] complication documented in this encounter Care Teams Desk Director Relationship Specialty Start Date End Date Maximilian Fall MD [address] [place] [address] PCP - General 10/01/11 02/13/21 documented as of this encounter
--- OUTSIDE RECORDS SUMMARY | 2024-07-15 13:40 | XMS_ITS | Encounter Summary ---
Author Organization [facility] Address [facility] [address] Care Team Providers Care Marriage And Family Therapist Name Role Phone Maximilian Fall MD Primary Care Provider Reason for Visit * Reason Comments Follow-up Encounter Details Date Type Department Care Team (Late st Contact Info) Description 09/17/2015 4:00 PM EDT Office Visit [place] [address] Marcelle Weinberg, JAZMINE [facility] [place] [address] Left sided colitis, unspecified complication Social History [...] Overview Note: ?? Colonoscopy 04/08/10 (Dr. Gomes [facility]) - inflammation only within the rectum and sigmoid; extent of the exam was to the hepatic flexure; biopsies proximal to the sigmoid nl ?? Repeat exam 11/27/11 ([facility]): mildly active colitis in the sigmoid colon [...] 9:00 AM EDT Office Visit [place] [address] Dion Barlow MD [facility] [place] [address] 09/01/2024 9:40 AM EDT Office Visit Cardiology at [address] [address] Franky Shaver MD [facility] [place] [address] 09/01/2024 11:20 AM EDT Office Visit [facility] at [facility] [address] [place] [address] Gómez Mercer MD [facility] DR EDDIE [place] [address] 09/21/2024 2:45 PM EDT Office Visit Pain [place] [address] Trung Hoyos MD [facility] [place] [address] documented as of this encounter Procedures Procedure [...] MD HEMATOLOGY ORDERABLE S Performing Organization Address City/[facility]/ZIP Co de Phone Number CERGIOVANNI ORDOÑEZENNIUM [...] EDT) C-Reactive Protein High Sensitivity 2.9 mg/L [facility] Comment: Interpretations: 1) For accurate cardiac [...] Barlow MD CHEMISTRY ORDERABLES Performing Organization Address [facility] de Phone Number [facility] * (ABNORMAL) Sedimentation rate (09/17/2015 4:30 PM EDT) [facility] Sedimentation Rate Automated 17(H) 0 - 15 mm/hr [facility] Blood specimen (specimen) 09/17/2015 4:30 PM EDT 09/17/2015 4:33 PM EDT Narrative Resulting Agency Comment Spec In Lab L Karthik Barlow MD HEMATOLOGY ORDERABLE S Performing Organization Address [facility] Co de Phone Number [facility] * (ABNORMAL) CMP w/fasting Glucose (09/17/2015 [...] intervals supplied above were not validated at [facility]. Results from pediatric patients should be interpreted [...] the following links into your internet browser. [email or web address] Blood specimen (specimen) 09/17/2015 4:30 PM EDT 09/17/2015 4:33 PM EDT Narrative Resulting Agency Comment Spec In Lab L Karthik Barlow MD CHEMISTRY ORDERABLES [facility] documented in this encounter Visit Diagnoses Diagnosis Left sided colitis, unspecified complication documented in this encounter Care Teams Marriage And Family Therapist Relationship Specialty Start Date End Date Maximilian Fall MD [address] [place] [address] [address] PCP - General 10/01/11 02/13/21 documented as of this encounter
--- OUTSIDE RECORDS SUMMARY | 2024-07-15 13:40 | XMS_ITS | Encounter Summary ---
Author Organization [facility] Address [facility] [place] [address] Care Team Providers Care Ship Loader Name Role Phone More Naylor MD Primary Care Provider [phone] Reason for Visit * Reason Comments Follow-up Encounter Details Date Type Department Care Team (Late st Contact Info) Description 11/01/2013 2:00 PM EST Follow-Up [place] [address] Dion Barlow MD [facility] [place] [address] Ulcerative colitis (Primary Dx) Discharge Disposition: Home [...] to the sigmoid nl Repeat exam 11/27/11 ([facility] mildly active colitis in the sigmoid colon [...] has left-sided ulcerative colitis with persistently active iswo-gn-wvhrwtyt symptom - now worse off of his [...] CC: MORE NAYLOR MD [address] [place] [address] documented in this encounter Plan of Treatment Upcoming Encounters Date Type Department Care Team (Late st Contact Info) Description 08/15/2024 9:00 AM EDT Office Visit [place] [address] Dion Barlow MD [facility] [place] [address] 09/01/2024 9:40 AM EDT Office Visit Cardiology at [address] [place] [phone] Franky Shaver MD [facility] [place] [address] 09/01/2024 11:20 AM EDT Office Visit Dermatology at [facility] [address] [place] [address] Gómez Mercer MD [facility] DR [place] [address] 09/21/2024 2:45 PM EDT Office Visit Pain and Spine Center at [facility] [place] [phone] Trung Hoyos MD [facility] [place] [address] documented as of this encounter Procedures Procedure [...] L Karthik Barlow MD HEMATOLOGY ORDERABLE S [facility] MILLENNIUM * (ABNORMAL) Comprehensive metabolic panel (non-fasting) (11/01/2013 3:39 PM EST) Glucose 110 60 - 199 mg/dL CERNER MILLENNIUM Comment:Diabetes: >=200 mg/d L plus symptoms Blood Urea Nitrogen 11 10 - 20 mg/dL CERNER MILLENNIUM Creatinine 0.91 0.80 - 1.50 mg/dL CERNER MILLENNIUM Comment: Please note that the pediatric reference intervals supplied above were not validated at [facility]. Results from pediatric patients should be interpreted [...] unspecified documented in this encounter Care Teams Ship Loader Relationship Specialty Start Date End Date More Naylor MD [address] [place] [address] PCP - General 10/01/11 02/13/21 documented as of this encounter
--- OUTSIDE RECORDS SUMMARY | 2024-07-15 13:40 | XMS_ITS | Encounter Summary ---
Author Organization [facility] Address [facility] [place] [address] Care Team Providers Care Department Director Name Role Phone Maximilian Fall MD Primary Care Provider [phone] Encounter Details Date Type Department Care Team (Latest Contact Info) Description 11/06/2015 11:16 AM EST - 11/06/2015 11:17 AM [facility] Hospital Encounter XRay at [address] [place] [address] Dion Barlow MD [facility] [place] [address] Pain in right hip; Bilateral low back [...] 9:00 AM EDT Office [place] [address] Dion Barlow MD [facility] [address] 09/01/2024 9:40 AM EDT Office Visit Cardiology at [address] [phone] Franky Shaver MD [facility] [place] [address] 09/01/2024 11:20 AM EDT Office Visit Dermatology at [facility] [address] [place] [address] Gómez Mercer MD [facility] DR EDD[place] [address] 09/21/2024 2:45 PM EDT Office Visit Pain and Spine Center at [facility] [place] [address] Trung Hoyos MD [facility] [place] [address] documented as of this encounter Procedures Procedure [...] complication documented in this encounter Care Teams Department Director Relationship Specialty Start Date End Date Maximilian Fall MD [address] [place] [address] PCP - General 10/01/11 02/13/21 documented as of this encounter
--- OUTSIDE RECORDS SUMMARY | 2024-07-15 13:40 | XMS_ITS | Encounter Summary ---
Author Organization Formerly [facility], 1928–1983 Address [place] [id number] Care Team Providers Care Message Clerk Name Role Phone Maximilian Fall MD Primary Care Provider [phone] Reason for Referral * Diagnostic Test (Routine) - Closed Specialty Diagnoses / Procedures Referred By Contac t Referred To Contact Radiology Diagnoses Postoperative wound abscess, initial encounter Procedures CT Retroperitoneal Abscess Drain Minnie Johnson MD [facility] [place] [address] [facility] [place] [address] Referral ID Status Reason Start Date Expiration Date V isits Requested Visits Authorized [id number] Closed Specialty Service Requested 03/22/2016 03/22/2017 1 1 Reason for Visit * Diagnostic Test (Routine) - Closed Specialty Diagnoses / Procedures Referred By Contac t Referred To Contact Radiology Diagnoses Postoperative wound abscess, initial encounter Procedures CT Retroperitoneal Abscess Drain Minnie Johnson MD [facility] [place] [address] [facility] [place] [address] Referral ID Status Reason Start Date Expiration Date V isits Requested Visits Authorized [id number] Closed Specialty Service Requested 03/22/2016 03/22/2017 1 1 Encounter Details Date Type Department Care Team (Latest Contact Info) Description 03/22/2016 10:40 AM EDT - 03/22/2016 11:59 PM EDT Hospital Encounter [place] [address] Shireen Hurtado MD [facility] [place] [address] Postoperative wound abscess, initial encounter Discharge Disposition: [...] is during regular office hours, please call [phone]. If it is after regular office hours, or on weekends or holidays, please call [phone] and ask to speak to the Workers Compensation Administrator fire control assistant for Interventional Radiology. You have received [...] pain several days post-op. He presented to [facility] ED and underwent a CT scan with findings consistent with RLQ abscess. We have been consulted for CT guided abscess drain placement. The patient has been admitted to [facility] and will be transferred back to [facility] following the procedure. Addendum: The patient's history [...] visible) Minnie Johnson MD Radiology, PGY-2 Pager [phone] * Danyell Doyle RN - 03/22/2016 10:29 AM EDT [facility] Name: NAYA RODRIGUEZ Date of : 1950 AGE 65 y.o. Address: [address] [place] [phone] (home) Mobile: Telephone Information: Referring Provider: Minnie [...] COLONOSCOPY, DIAGNOSTIC performed by Dion OSULLIVAN at [facility] ENDOSCOPY ??? Pro sigmoidoscopy, diagnostic 03/16/2012 FLEXIBLE SIGMOIDOSCOPY performed by YUDI MALLOY at [facility] ENDOSCOPY ??? Upper gi endoscopy, exam 10/01/2012 UPPER GI ENDOSCOPY performed by Dion OSULLIVAN at [facility] ENDOSCOPY ??? Pro colonoscopy, diagnostic 07/13/2014 COLONOSCOPY, DIAGNOSTIC performed by Dion Osullivan MD at [facility] ENDOSCOPY Date/Procedure Med's given/comments No previous [...] CT-guided RLQ drainage catheter placement (acc # [id number]) Indication : 65 y.o. male with PMHx significant for asthma, diabetes, and ulcerative colitis who isstatus post laparoscopic appendectomy on 03/13/2016 who noted RLQ pain several days post-op. He presented to [facility] ED and underwent a CT scan with findings consistent with RLQ abscess. We have been consulted for CT guided abscess drain placement. The patient has beenadmitted to [facility] and will be transferred back to [facility] following the procedure. . Technique: After discussing [...] 9:00 AM EDT Office Visit [place] [address] Dion Osullivan MD [facility] [place] [address] 09/01/2024 9:40 AM EDT Office Visit Cardiology at [address] [place] [address] Franky Shaver MD [facility] [place] [address] 09/01/2024 11:20 AM EDT Office Visit Dermatology at [facility] [address] [place] [phone] Gómez Mercer MD [facility] DR EDDIE [place] [address] 09/21/2024 2:45 PM EDT Office Visit Pain and Spine Center at [facility] [address] [place] [address] Trung Hoyos MD [facility] [place] [address] documented as of this encounter Procedures Procedure [...] CT-guided RLQ?? drainage catheter placement (ACC # [id number]) Indication : 65 y.o. male with PMHx significant for asthma, diabetes, and ulcerative colitis who is status post laparoscopic appendectomy on 03/13/2016 who noted RLQ pain several days post-op. He presented to [facility] ED and underwent a CT scan with findings consistent with RLQ abscess. We have been consulted for CT guided abscess drain placement. The patient has been admitted to [facility] and will be transferred back to [facility] following the procedure. Technique: After discussing [...] EDT) Anaerobic Culture No anaerobic organisms isolated [facility] Specimen from abscess (specimen) [place] / Unknown 03/22/2016 10:54 AM EDT 03/22/2016 12:52 PM EDT Comment:RLQ PAIN SEVERAL DAY S POST-OP. HE PRESENTED TO ED AND UNDERWENT A CT SCAN WITH FINDINGS CONSISTENT WITH RLQ ABSCESS. S/P APPY. Narrative Resulting Agency Comment Spec In Lab Shireen Hurtado MD MICROBIOLOGY - GENER AL ORDERABLES Performing Organization Address City/[facility]/ZIP Co de Phone Number [facility] [place] [address] * (ABNORMAL) Wound Aspirate/Abscess Culture (03/22/2016 10:54 AM EDT) Abscess/Wound Aspirate Culture Many Escherichia coli(A) [facility] Gram Stain Many White Blood Cells seen Many Gram Negative Rods seen (A) [facility] Organism Escherichia coli(A) [facility] Organism Gram Negative Rods(A) [facility] Specimen from abscess (specimen) [place] / Unknown 03/22/2016 10:54 AM EDT 03/22/2016 12:52 PM EDT Comment:RLQ PAIN SEVERAL DAY S POST-OP. HE PRESENTED TO ED AND UNDERWENT A CT SCAN WITH [...] - GENER AL ORDERABLES Performing Organization Address [facility]/ZIP Co de Phone Number [facility] [place] [address] documented in this encounter Visit Diagnoses Diagnosis [...] mL/hr documented in this encounter Care Teams Message Clerk Relationship Specialty Start Date End Date Maximilian Fall MD [address] [facility] [address] [place] [address] PCP - General 10/01/11 02/13/21 documented as of this encounter
--- OUTSIDE RECORDS SUMMARY | 2024-07-15 13:40 | XMS_ITS | Encounter Summary ---
Author Organization [facility] Address [facility] [place] [address] Care Team Providers Care Contract Administrator Name Role Phone Maximilian Fall MD Primary Care Provider Encounter Details Date Type Department Care Team (Late st Contact Info) Description 10/01/2012 4:15 PM EST - 10/01/2012 4:45 PM EST Surgery [place] [address] Dion Osullivan MD [facility] [place] [address] UPPER GI ENDOSCOPY Social History Tobacco Use [...] GI ENDOSCOPY: WHAT TO EXPECT AT HOME (EMIRATI) documented [...] Osullivan MD - 10/01/2012 5:07 PM EST [facility] Operative Note Patient Name: Naya Rodriguez : [id number] MR#: [id number] Case Date: 10/01/2012 Surgeon: Surgeon(s) and Role: [...] 9:00 AM EDT Office Visit [place] [address] Dion Osullivan MD [facility] [place] [address] 09/01/2024 9:40 AM EDT Office Visit Cardiology at [address] [phone] Franky Shaver MD [facility] [place] [address] 09/01/2024 11:20 AM EDT Office Visit Dermatology at [address] [place] [address] Gómez Mercer MD [facility] [address] 09/21/2024 2:45 PM EDT Office Visit Pain [facility] [place] [address] Trung Hoyos MD [facility] [place] [address] documented as of this encounter Procedures Procedure [...] 5:54 PM EST) Surgical Pathology Report ? [facility] ? Provider: ?? Dion OSULLIVAN ?Pt. Name: ?? NAYA RODRIGUEZ ? Acc #: ?[id number] ?Pt. ? Col Date: ?? 10/01/2012 ? [...] Performing Organization Address City/[facility] Co de Phone Number D[facility] FR[facility] * Specimen to Pathology (surgical or derm) (10/01/2012 5:09 PM EST) AP Specimen 10/01/2012 5:09 PM EST 10/01/2012 5:09 PM EST Narrative [facility] - 10/01/2012 5:09 PM EST Specimen requisition ordered. ??Separate Pathology report to follow L Karthik Osullivan MD PATHOLOGY/CYTOLOGY O CEE [facility] * UPPER GI ENDOSCOPY (10/01/2012 4:41 PM EST) UPPER GI ENDOSCOPY [facility] Endoscopy Patient Name: Naya Rodriguez ? Procedure Date: 10/01/2012 4:41 PM ? Date of : 1950 ? Age: 62 ? Order #: [id number] ? Procedure: ? Upper GI endoscopy Indications: ? Epigastric abdominal pain Providers: ? L Karthik Osullivan MD, Alannah Singletary, ? RN, Mona Osborne, Tape Folding Machine Operator Referring : ?Maximilian Fall MD Medicines: ? [...] GENERAL SURGICAL ORD ERAOMAR Performing Organization Address City/[facility] Co de Phone Number [facility] * POCT GLUCOSE (10/01/2012 4:27 PM EST) Glucose, POC 84 60 - 199 mg/dL [facility] Comment: Supplemental ranges: <110 mg/dL before [...] RN) documented in this encounter Care Teams Contract Administrator Relationship Specialty Start Date End Date Maximilian Fall MD [address] [place] [address] PCP - General 10/01/11 02/13/21 documented as of this encounter
--- OUTSIDE RECORDS SUMMARY | 2024-07-15 13:40 | XMS_ITS | Encounter Summary ---
[place] [address] Care Team Providers Care Powder Blender And Pourer Name Role Phone Maximilian Fall MD Primary Care Provider [phone] Encounter Details Date Type Department Care Team (Late st Contact Info) Description 03/21/2016 - 03/21/2016 11:59 PM EDT Hospital Encounter [place] [address] Dr Thomas Temporary Pain Discharge Disposition: Home [...] 9:00 AM EDT Office [place] [phone] Dion Barlow MD [facility] [place] [address] 09/01/2024 9:40 AM EDT Office Visit Cardiology at [address] [phone] rFanky Shaver MD [facility] [place] [address] 09/01/2024 11:20 AM EDT Office Visit Dermatology at [address] [address] Gómez Mercer MD [facility] DR EDDIE [place] [address] 09/21/2024 2:45 PM EDT Office Visit [place] [phone] Trung Hoyos MD [facility] [place] [address] documented as of this encounter Procedures Procedure Name Priority Date/Time Associated Diagnosis Comments FILM LIBRARY STORAGE ONLY CT ABDOMEN AND PELVIS Routine 03/21/2016 12:00 AM EDT Pain documented in this encounter Results * Film Library- Storage Only CT Abdomen & Pelvis (03/21/2016 12:00 AM EDT) Narrative [facility] - 03/21/2016 7:24 PM EDT This exam is for storage only and is auto-finalizing. Dr Leiva [facility] FILM LIBRARY ORD ERABLES [place], [place] documented in this encounter Visit Diagnoses Diagnosis Pain Generalized pain documented in this encounter Care Teams Powder Blender And Pourer Relationship Specialty Start Date End Date Maximilian Fall MD [address] [place] [address] PCP - General 10/01/11 02/13/21 documented as of this encounter
--- OUTSIDE RECORDS SUMMARY | 2024-07-15 13:40 | XMS_ITS | Encounter Summary ---
Author Organization [facility] Address [facility] [place] [address] Care Team Providers Care Supervisor Wet Pour Name Role Phone Maximilian Fall MD Primary Care Provider [phone] Encounter Details Date Type Department Care Team (Late st Contact Info) Description 07/13/2014 2:30 PM EDT - 07/13/2014 3:30 PM EDT [place] [address] Dion Osullivan MD [facility] [place] [address] COLONOSCOPY, DIAGNOSTIC (WRVU 3.26) Social History Tobacco [...] - 07/13/2014 4:14 PM EDT Please call [phone], before 5pm with problems, questions or concerns, after 5pm call the Hospital at [phone] and ask to speak to the Staff Educator wafer production worker and the piped buttonhole machine operator will contactthat person for you. [...] through Care Everywhere. * COLONOSCOPY : POSTOP ([place]) documented in this encounter Medications at Time [...] Osullivan MD - 07/13/2014 3:57 PM EDT [facility] Operative Note Patient Name: Naya Rodriguez : [id number] MR#: [id number] Case Date: 07/13/2014 Surgeon: Surgeon(s) and Role: [...] 9:00 AM EDT Office [place] [address] Dion Osullivan MD [facility] [place] [address] 09/01/2024 9:40 AM EDT Office Visit Cardiology at [address] [place] [address] Franky Shaver MD [facility] [place] [address] 09/01/2024 11:20 AM EDT Office Visit Dermatology at [facility] [address] [place] [address] Gómez Mercer MD [facility] [place] [address] 09/21/2024 2:45 PM EDT Office Visit [place] [phone] Trung Hoyos MD [facility] [place] [address] documented as of this encounter Procedures Procedure [...] EDT) Final Diagnosis ? [facility] ? Provider: ?? Dion OSULLIVAN ?Pt. Name: ?? NAYA RODRIGUEZ ? Acc #: ?[id number] ?Pt. ? Col Date: ?? 07/13/2014 ? [...] - R colon ? [facility] ? Provider: ?? Dion OSULLIVAN ?Pt. Name: ?? NAYA RODRIGUEZ ? Acc #: ?[id number] ?Pt. ? Col Date: ?? 07/13/2014 ? /Sex: ?1950,(64 years),Male ? Rec Date: ?? 07/13/2014 ? LOC: ?4T ? SURGICAL PATHOLOGY ? Clinical History: ? 64-year-old with a history of left sided UC ? Clinical Diagnosis: ? Same 07/14/2014 4:08 PM EDT [facility] GI Biopsy 07/13/2014 3:58 PM EDT 07/13/2014 3:58 PM EDT GI Biopsy 07/13/2014 3:58 PM EDT 07/13/2014 3:58 PM EDT GI Biopsy 07/13/2014 3:58 PM EDT 07/13/2014 3:58 PM EDT L Karthik Osullivan MD PATHOLOGY/CYTOLOGY O RDMELISSA Performing Organization Address City/[facility]/ZIP Co de Phone Number DURGA [place] [address] * Specimen to Pathology (surgical or derm) (07/13/2014 3:58 PM EDT) AP Specimen 07/13/2014 3:58 PM EDT 07/13/2014 3:58 PM EDT Narrative [facility] - 07/13/2014 3:58 PM EDT Specimen requisition ordered. ??Separate Pathology report to follow L Karthik Osullivan MD PATHOLOGY/CYTOLOGY O RDMELISSA Performing Organization Address [facility] Co de Phone Number DURGA FREDERICK * Specimen to Pathology (surgical or derm) (07/13/2014 3:58 PM EDT) AP Specimen 07/13/2014 3:58 PM EDT 07/13/2014 3:58 PM EDT Narrative [facility] - 07/13/2014 3:58 PM EDT Specimen requisition ordered. ??Separate Pathology report to follow L Karthik Osullivan MD PATHOLOGY/CYTOLOGY O CEE Performing Organization Address [facility] Co de Phone Number DURGA FREDERICK * Specimen to Pathology (surgical or derm) (07/13/2014 3:58 PM EDT) AP Specimen 07/13/2014 3:58 PM EDT 07/13/2014 3:58 PM EDT Narrative [facility] - 07/13/2014 3:58 PM EDT Specimen requisition ordered. ??Separate Pathology report to follow L Karthik Osullivan MD PATHOLOGY/CYTOLOGY O RDERAOMAR Performing Organization Address City/[facility] Co de Phone Number DURGA FREDERICK * COLONOSCOPY (07/13/2014 2:51 PM EDT) COLONOSCOPY [facility] Endoscopy Patient Name: Naya Rodriguez ? Procedure Date: 07/13/2014 2:51 PM ? Date of : 1950 ? Age: 64 ? Order #: [id number] ? Procedure: ? Colonoscopy Indications: ? Follow-up of left-sided chronic ? ulcerative colitis Providers: ? Davina Osullivan MD, Emily Quinn, ? RN, Luna Connors RN, Cam Ashley. ? Doug, Large Animal Veterinarian Referring MD: ?Maximilian Fall MD Medicines: ? [...] 167 60 - 199 mg/dL [facility] Comment: Supplemental ranges: <140 mg/dL before meals <180 mg/dL all other times of the day Blood specimen (specimen) 07/13/2014 1:59 PM EDT 07/13/2014 1:59 PM EDT L Karthik Osullivan MD POINT OF CARE TEST O RDERABLES Performing Organization Address City/State/[facility] Co wv Phone Number [facility] documented in this encounter Visit Diagnoses [...] uncomfortable) documented in this encounter Care Teams Supervisor Wet Pour Relationship Specialty Start Date End Date Maximilian Fall MD [address] [place] [address] PCP - General 10/01/11 02/13/21 documented as of this encounter
--- OUTSIDE RECORDS SUMMARY | 2024-07-15 13:40 | XMS_ITS | Encounter Summary ---
Author Organization Replaced By [facility] Address [facility] [place] [address] Care Team Providers Care Concierge Manager Name Role Phone Maximilian Fall MD Primary Care Provider [phone] Reason for Visit * Reason Onset Date Comments Medication Refill 11/03/2013 Encounter Details Date Type Department Care Team (Late st Contact Info) Description 11/03/2013 Refill [place] [address] Dion Barlow MD [facility] [place] [address] Social History Tobacco Use Types Packs/Day Years [...] with Dr Barlow and it should be [id number] take 2 tabs twice a day or 2GM documented in this encounter Plan of Treatment Upcoming Encounters Date Type Department Care Team (Late st Contact Info) Description 08/15/2024 9:00 AM EDT Office Visit [place] [address] Dion Barlow MD [facility] [place] [address] 09/01/2024 9:40 AM EDT Office Visit Cardiology at [address] [place] [address] Franky Shaver MD [facility] [place] [address] 09/01/2024 11:20 AM EDT Office Visit Dermatology at [place] [address] [place] [address] Gómez Mercer MD [facility] DR EDD[place] [address] 09/21/2024 2:45 PM EDT Office Visit [facility] [place] [address] Trung Hoyos MD [facility] [place] [address] documented as of this encounter Visit Diagnoses Not on filedocumented in this encounter Care Teams Concierge Manager Relationship Specialty Start Date End Date Maximilian Fall MD [address] [place] [address] PCP - General 10/01/11 02/13/21 documented as of this encounter
--- OUTSIDE RECORDS SUMMARY | 2024-07-15 13:40 | XMS_ITS | Encounter Summary ---
Author Organization Formerly [facility] [address] Care Team Providers Care Faculty Research Physician Name Role Phone Maximilian Fall MD Primary Care Provider [phone] Reason for Visit * Reason Onset Date Comments Medication Refill 04/05/2014 Encounter Details Date Type Department Care Team (Late st Contact Info) Description 04/05/2014 Ref[place] [address] Dion Barlow MD [facility] [place] [address] Social History Tobacco Use Types Packs/Day Years [...] 9:00 AM EDT Office [place] [address] Dion Barlow MD [facility] [place] [address] 09/01/2024 9:40 AM EDT Office Visit Cardiology at [address] [place] [address] Franky Shaver MD [facility] [place] [address] 09/01/2024 11:20 AM EDT Office Visit Dermatology at [facility] [address] [place] [phone] Gómez Mercer MD [facility] [place] [address] 09/21/2024 2:45 PM EDT Office Visit Pain and Spine Center at [facility] [place] [address] Trung Hoyos MD [facility] [place] [address] documented as of this encounter Visit Diagnoses Not on filedocumented in this encounter Care Teams Faculty Research Physician Relationship Specialty Start Date End Date Maximilian Fall MD [address] [facility] [place] [address] PCP - General 10/01/11 02/13/21 documented as of this encounter
--- OUTSIDE RECORDS SUMMARY | 2024-07-15 13:40 | XMS_ITS | Encounter Summary ---
[place] [address] Care Team Providers Care Driver Utility Worker Name Role Phone Maximilian Fall MD Primary Care Provider [phone] Encounter Details Date Type Department Care Team (Late st Contact Info) Description 03/13/2016 - 03/13/2016 11:59 PM EDT Hospital Encounter [place] [address] [address] Thomas Temporary Pain Discharge Disposition: Home [...] 9:00 AM EDT Office [place] [address] Dion Barlow MD [facility] [place] [address] 09/01/2024 9:40 AM EDT Office Visit Cardiology at [address] [phone] Franky Shaver MD [facility] [place] [address] 09/01/2024 11:20 AM EDT Office Visit Dermatology at [address] [address] Gómez Mercer MD [facility] DR EDDIE S[place] [address] 09/21/2024 2:45 PM EDT Office Visit [place] [phone] Trung Hoyos MD [facility] [place] [address] documented as of this encounter Procedures Procedure Name Priority Date/Time Associated Diagnosis Comments FILM LIBRARY STORAGE ONLY CT ABDOMEN AND PELVIS Routine 03/13/2016 12:00 AM EDT Pain documented in this encounter Results * Film Library- Storage Only CT Abdomen & Pelvis (03/13/2016 12:00 AM EDT) Narrative [facility] - 03/22/2016 8:20 AM EDT This exam is for storage only and is auto-finalizing. Dr Leiva [facility] FILM LIBRARY ORD ERABLES [place], [place] documented in this encounter Visit Diagnoses Diagnosis Pain Generalized pain documented in this encounter Care Teams Driver Utility Worker Relationship Specialty Start Date End Date Maximilian Fall MD [address] [place] [address] PCP - General 10/01/11 02/13/21 documented as of this encounter
--- OUTSIDE RECORDS SUMMARY | 2024-07-15 13:40 | XMS_ITS | Encounter Summary ---
Author Organization [facility] Address [facility] [place] [address] Care Team Providers Care Warehouse Supervisor 3Rd Shift Name Role Phone Maximilian Fall MD Primary Care Provider [phone] Encounter Details Date Type Department Care Team (Late st Contact Info) Description 11/05/2015 Telephone [place] [phone] Bethany Trivedi, RN Social History Tobacco Use [...] 9:00 AM EDT Office Visit [place] [phone] Dion Barlow MD [facility] [place] [address] 09/01/2024 9:40 AM EDT Office Visit Cardiology at [address] [phone] Franky Shaver MD [facility] [place] [address] 09/01/2024 11:20 AM EDT Office Visit Dermatology at [facility] [address] [place] [phone] Gómez Mercer MD [facility] [place] [address] 09/21/2024 2:45 PM EDT Office Visit [facility] [place] [phone] Trung Hoyos MD [facility] [place] [address] documented as of this encounter Results * (ABNORMAL) Sedimentation rate (11/06/2015 10:24 AM EST) Sedimentation Rate Automated 22(H) 0 - 15 mm/hr DURGA Bozuko Blood specimen (specimen) 11/06/2015 10:24 AM EST 11/06/2015 10:28 AM EST Narrative Resulting Agency Comment Spec In Lab Dion Barlow MD HEMATOLOGY ORDERABLE S [facility] MILLENNIUM * (ABNORMAL) Comprehensive metabolic panel (non-fasting) (11/06/2015 10:24 AM EST) [facility] Glucose 81 65 - 199 mg/dL CERNER MILLENNIUM Comment:Diabetes: >=200 mg/d L plus symptoms Blood Urea Nitrogen 14 10 - 20 mg/dL CERNER MILLENNIUM Creatinine 1.15 0.80 - 1.50 mg/dL CERNER MILLENNIUM Comment: Please note that the pediatric reference intervals supplied above were not validated at [facility]. Results from pediatric patients should be interpreted [...] the following links into your internet browser. [email or web address] Blood specimen (specimen) 11/06/2015 10:24 AM EST 11/06/2015 10:28 AM EST Narrative Resulting Agency Comment Spec In Lab L Karthik Barlow MD CHEMISTRY ORDERABLES Performing Organization Address [facility] de Phone Number DURGA FREDERICK * High Sensitivity CRP (11/06/2015 10:24 AM EST) C-Reactive Protein High Sensitivity 7.9 mg/L [facility] Comment: Interpretations: 1) For accurate cardiac [...] MD CHEMISTRY ORDERABLES Performing Organization Address [facility] Phone Number DURGA FREDERICK documented in this encounter Visit Diagnoses Diagnosis Ulcerative colitis, without complications Diarrhea documented in this encounter Care Teams Warehouse Supervisor 3Rd Shift Relationship Specialty Start Date End Date Maximilian Fall MD [address] [place] [address] [address] [place] [address] PCP - General 10/01/11 02/13/21 documented as of this encounter
--- OUTSIDE RECORDS SUMMARY | 2024-07-15 13:40 | XMS_ITS | Encounter Summary ---
Author Organization [facility] [place] [address] Care Team Providers Care Cookee Name Role Phone Maximilian Fall MD Primary Care Provider [phone] Reason for Visit * Reason Onset Date Comments Medication Refill 11/22/2012 Encounter Details Date Type Department Care Team (Late st Contact Info) Description 11/22/2012 Refill [place] [address] Dion Barlow MD [facility] [place] [address] Ulcerative colitis (Primary Dx) Social History Tobacco [...] 9:00 AM EDT Office [place] [phone] Dion Barlow MD [facility] [place] [address] 09/01/2024 9:40 AM EDT Office Visit Cardiology at [address] [place] [address] Franky Shaver MD [facility] [place] [address] 09/01/2024 11:20 AM EDT Office Visit Dermatology at [facility] [address] [place] [phone] Gómez Mercer MD [facility] DR EDDIE [place] [address] 09/21/2024 2:45 PM EDT Office Visit Pain and Spine Center at [facility] [place] [address] Trung Hoyos MD [facility] [place] [address] documented as of this encounter Visit Diagnoses Diagnosis Ulcerative colitis- Primary Ulcerative colitis, unspecified documented in this encounter Care Teams Cookee Relationship Specialty Start Date End Date Maximilian Fall MD [address] [facility] [place] [address] PCP - General 10/01/11 02/13/21 documented as of this encounter
--- OUTSIDE RECORDS SUMMARY | 2024-07-15 13:40 | XMS_ITS | Encounter Summary ---
Author Organization [facility] Address [facility] [place] [address] Care Team Providers Care Wash Helper Name Role Phone Maximilian Fall MD Primary Care Provider [phone] Reason for Visit * Reason Comments Follow-up Encounter Details Date Type Department Care Team (Late st Contact Info) Description 06/05/2014 9:30 AM EDT [place] [address] Marcelle Weinberg, JAZMINE [facility] [place] [address] Other ulcerative colitis (Primary Dx) Discharge Disposition: [...] colitis Colonoscopy 04/08/10 (Dr. Gomes [facility]) - inflammation only within the rectum and sigmoid; extent of the exam was to the hepatic flexure; biopsies proximal to the sigmoid nl Repeat exam 11/27/11 ([facility]): mildly active [...] 9:00 AM EDT Office [place] [address] Dion Barlow MD [facility] [place] [address] 09/01/2024 9:40 AM EDT Office Visit Cardiology at [address] [phone] Franky Shaver MD [facility] [place] [address] 09/01/2024 11:20 AM EDT Office Visit Dermatology at [facility] [address] [place] [phone] Gómez Mercer MD [facility] DR EDDIE [place] [address] 09/21/2024 2:45 PM EDT Office Visit [place] [address] Trung Hoyos MD [facility] [place] [address] Scheduled Orders Name Type Priority Associated Diagnoses Orde r Schedule COLONOSCOPY Procedures Routine Other ulcerative colitis Ordered: 06/05/2014 documented as of this encounter Visit Diagnoses Diagnosis Other ulcerative colitis- Primary documented in this encounter Care Teams Wash Helper Relationship Specialty Start Date End Date Maximilian Fall MD [address] [place] [address] PCP - General 10/01/11 02/13/21 documented as of this encounter
--- OUTSIDE RECORDS SUMMARY | 2024-07-15 13:40 | XMS_ITS | Encounter Summary ---
Author Organization [facility] Address [facility] [place] [address] Care Team Providers Care Clinic Assistant Name Role Phone Maximilian Fall MD Primary Care Provider [phone] Encounter Details Date Type Department Care Team (Latest Contact Info) Description 07/13/2014 1:25 PM EDT - 07/13/2014 4:30 PM EDT Hospital Encounter [place] [address] Dion Osullivan MD [facility] [place] [address] Discharge Disposition: Home Social History Tobacco Use [...] - 07/13/2014 4:14 PM EDT Please call [phone], before 5pm with problems, questions or concerns, after 5pm call the Hospital at [phone] and ask to speak to the Dx Board Operator litigation specialist and the vacuum conditioner operator will contactthat person for you. Discharge [...] through Care Everywhere. * COLONOSCOPY : POSTOP (YI) documented in this encounter Medications at Time [...] Osullivan MD - 07/13/2014 3:57 PM EDT [facility] Operative Note Patient Name: Naya Rodriguez : [id number] MR#: [id number] Case Date: 07/13/2014 Surgeon: Surgeon(s) and Role: [...] 9:00 AM EDT Office Visit [place] [address] Dion Osullivan MD [facility] [place] [address] 09/01/2024 9:40 AM EDT Office Visit Cardiology at [address] [place] [phone] Franky Shaver MD [facility] [place] [address] 09/01/2024 11:20 AM EDT Office Visit Dermatology at [facility] [address] [place] [phone] Gómez Mercer MD [facility] [address] 09/21/2024 2:45 PM EDT Office Visit [facility] [place] [phone] Trung Hoyos MD [facility] [place] [address] documented as of this encounter Procedures Procedure [...] 3:58 PM EDT) Final Diagnosis ? [facility] ? Provider: ?? Dion OSULLIVAN ?Pt. Name: ?? NAYA RODRIGUEZ ? Acc #: ?[id number] ?Pt. ? Col Date: ?? 07/13/2014 ? [...] Mucosal biopsies - R colon ? [facility] ? Provider: ?? Dion OSULLIVAN ?Pt. Name: ?? NAYA RODRIGUEZ ? Acc #: ?[id number] ?Pt. ? Col Date: ?? 07/13/2014 ? [...] Osullivan MD PATHOLOGY/CYTOLOGY O CEE [place] [address] * Specimen to Pathology (surgical or derm) (07/13/2014 3:58 PM EDT) AP Specimen 07/13/2014 3:58 PM EDT 07/13/2014 3:58 PM EDT Narrative JO-ANNGIOVANNI COLBERTIUM - 07/13/2014 3:58 PM EDT Specimen requisition ordered. ??Separate Pathology report to follow L Karthik Osullivan MD PATHOLOGY/CYTOLOGY O CEE Performing Organization Address [facility] Co de Phone Number DURGA FREDERICK * Specimen to Pathology (surgical or derm) (07/13/2014 3:58 PM EDT) AP Specimen 07/13/2014 3:58 PM EDT 07/13/2014 3:58 PM EDT Narrative DURGA COLBERTIUM - 07/13/2014 3:58 PM EDT Specimen requisition ordered. ??Separate Pathology report to follow L Karthik Osullivan MD PATHOLOGY/CYTOLOGY O CEE Performing Organization Address City/[facility]/ZIP Co de Phone Number DURGA FREDERICK * Specimen to Pathology (surgical or derm) (07/13/2014 3:58 PM EDT) AP Specimen 07/13/2014 3:58 PM EDT 07/13/2014 3:58 PM EDT Narrative DURGA COLBERTIUM - 07/13/2014 3:58 PM EDT Specimen requisition ordered. ??Separate Pathology report to follow L Karthik Osullivan MD PATHOLOGY/CYTOLOGY O RDMELISSA DURGA FREDERICK * COLONOSCOPY (07/13/2014 2:51 PM EDT) Pathologist [facility] COLONOSCOPY [facility] Endoscopy Patient Name: Naya Rodriguez ? Procedure Date: 07/13/2014 2:51 PM ? Date of : 1950 ? Age: 64 ? Order #: [id number] ? Procedure: ? Colonoscopy Indications: ? Follow-up of left-sided chronic ? ulcerative colitis Providers: ? Davina Osullivan MD, Emily Qunin, ? RN, Luna Connors, RONY, Cam Ghosh ? Doug, Tin Stacker Referring MD: ?Maximilian Fall MD Medicines: ? [...] Glucose, POC 167 60 - 199 mg/dL [facility] Comment: Supplemental ranges: <140 mg/dL before meals <180 mg/dL all other times of the day Blood specimen (specimen) 07/13/2014 1:59 PM EDT 07/13/2014 1:59 PM EDT L Karthik Osullivan MD POINT OF CARE TEST O RDERABLES [facility] documented in this encounter Visit [...] uncomfortable) documented in this encounter Care Teams Clinic Assistant Relationship Specialty Start Date End Date Maximilian Fall MD [address] [place] [address] PCP - General 10/01/11 02/13/21 documented as of this encounter
--- OUTSIDE RECORDS SUMMARY | 2024-07-15 13:40 | XMS_ITS | Encounter Summary ---
Author Organization [facility] Address [facility] [place] [address] Care Team Providers Care Lapel Padder Name Role Phone More Naylor MD Primary Care Provider [phone] Reason for Visit * Reason Comments Follow-up Encounter Details Date Type Department Care Team (Late st Contact Info) Description 03/06/2014 8:30 AM EDT Follow-[place] [address] Dion Barlow MD [facility] [place] [address] Ulcerative colitis, with rectal bleeding (Primary Dx) [...] ??? Ulcerative colitis Colonoscopy 04/08/10 (Dr. Gomes [facility]) - inflammation only within the [...] or most commonly, upper respiratory infections; positive qxdh-thzfet-rayclmob DNA antibodies, and rarely a lupus-like syndrome; [...] CC: MORE NAYLOR MD [address] [place] [address] documented in this encounter Plan of Treatment Upcoming Encounters Date Type Department Care Team (Late st Contact Info) Description 08/15/2024 9:00 AM EDT Office [place] [address] Dion Barlow MD [facility] [place] [place] [address] 09/01/2024 9:40 AM EDT Office Visit Cardiology at [address] [address] Franky Shaver MD [facility] [place] [address] 09/01/2024 11:20 AM EDT Office Visit Dermatology at [facility] [address] [place] [phone] Gómez Mercer MD [facility] [place] [address] 09/21/2024 2:45 PM EDT Office Visit [place] [address] Trung Hoyos MD [facility] [place] [address] documented as of this encounter Procedures Procedure [...] Urine Dipstick Clear Clear CERNER MILLENNIUM Specific [place] Urine Automated 1.019 1.002 - 1.030 CERNER [...] L Karthik Barlow MD URINE ORDERABLES CERNER IgenicaENNIUM * Differential, Automated (03/06/2014 9:39 AM EDT) Neutrophil % 64.8 34.0 - 71.0 % [facility] MILL[facility] Neutrophil Absolute 3.24 1.50 - 6.30 [...] Gran Absolute 0.01 0.00 - 0.05 x10(3)/mcL [facility] TIAGOENNIUM Blood specimen (specimen) 03/06/2014 9:39 AM EDT 03/06/2014 9:47 AM EDT L Karthik Barlow MD HEMATOLOGY ORDERABLE S [facility] * QuantiFERON-TB Gold (03/06/2014 9:39 AM EDT) Pathologist [facility] Quantiferon-TB Gold Negative Negative [facility] Comment: Nil (IU/mL)=0.03 TB Ag minus Nil [...] Lab L Karthik Barlow MD CHEMISTRY ORDERABLES [facility] * High Sensitivity CRP (03/06/2014 9:39 AM [...] Primary documented in this encounter Care Teams Lapel Padder Relationship Specialty Start Date End Date More Naylor MD [address] [place] [address] PCP - General 10/01/11 02/13/21 documented as of this encounter
--- OUTSIDE RECORDS SUMMARY | 2024-07-15 13:40 | XMS_ITS | Encounter Summary ---
Author Organization [facility] Address [facility] [place] [address] Care Team Providers Care Medical Staff Physician Name Role Phone Maximilian Fall MD Primary Care Provider [phone] Encounter Details Date Type Department Care Team (Late st Contact Info) Description 09/11/2014 10:00 AM EDT [place] [address] Dion Barlow MD [facility] [place] [address] Ulcerative colitis, other complication (Primary Dx) Discharge [...] 6 months or sooner. Davina Barlow MD Core Blowerprincipal statistical scientist Section of Gastroenterology [place] [address] documented in this encounter Plan of Treatment Upcoming Encounters Date Type Department Care Team (Late st Contact Info) Description 08/15/2024 9:00 AM EDT Office [place] [address] Dion Barlow MD [facility] [place] [address] 09/01/2024 9:40 AM EDT Office Visit Cardiology at [address] [phone] Franky Shaver MD [facility] [place] [address] 09/01/2024 11:20 AM EDT Office Visit Dermatology at [facility] [address] [place] [address] Gómez Mercer MD [facility] DR EDDIE [place] [address] 09/21/2024 2:45 PM EDT Office Visit [place] [address] Trung Hoyos MD [facility] [place] [address] documented as of this encounter Visit Diagnoses Diagnosis Ulcerative colitis, other complication- Primary documented in this encounter Care Teams Medical Staff Physician Relationship Specialty Start Date End Date Maximilian Fall MD [address] [place] [address] PCP - General 10/01/11 02/13/21 documented as of this encounter
--- OUTSIDE RECORDS SUMMARY | 2024-07-15 13:40 | XMS_ITS | Encounter Summary ---
[place] [address] Care Team Providers Care Tooling Manager Name Role Phone Maximilian Fall MD Primary Care Provider [phone] Encounter Details Date Type Department Care Team (Latest Contact Info) Description 11/06/2015 10:15 AM EST Laboratory Appointment Lab [address] [place] [phone] Ulcerative colitis, without complications; Diarrhea; Pain in [...] 9:00 AM EDT Office Visit [place] [address] Dion Barlow MD [facility] [address] 09/01/2024 9:40 AM EDT Office Visit Cardiology at [address] [place] [address] Franky Shaver MD [facility] [place] [address] 09/01/2024 11:20 AM EDT Office Visit Dermatology at [facility] [address] [place] [phone] Gómez Mercer MD [facility] [place] [address] 09/21/2024 2:45 PM EDT Office Visit [facility] [place] [address] Trung Hoyos MD [facility] [address] documented as of this encounter Procedures Procedure Name Priority Date/Time Associated Diagnosis Comments C. DIFFICILE SCREEN Routine 11/06/2015 2 :30 PM EST Pain in right hip Bilateral low back pain, with sciatica presence unspecified Abdominal pain, unspecified abdominal location Chronic ulcerative enterocolitis, unspecified complication STOOL CULTURE SCREEN ([facility]/CGP/APD/NLH) Routine 11/06/2015 1:49 PM EST Pain in [...] ulcerative enterocolitis, unspecified complication CRYPTOSPORIDIUM OOCYST ANTIGEN ([facility]/CGP/APD) Routine 11/06/2015 1:09 PM EST Pain in right hip Bilateral low back pain, with sciatica presence unspecified Abdominal pain, unspecified abdominal location Chronic ulcerative enterocolitis, unspecified complication GIARDIA/CRYPTOSPORIDIUM ANTIGENS ([facility]/CGP/APD/NLH) Routine 11/06/2015 1:09 PM EST Pain in right hip Bilateral low back pain, with sciatica presence unspecified Abdominal pain, unspecified abdominal location Chronic ulcerative enterocolitis, unspecified complication GIARDIA ANTIGEN ([facility]/CGP/APD/NLH) Routine 11/06/2015 1:09 PM EST Pain in [...] PM EST) C Diff Interp Negative Negative [facility] Stool specimen (specimen) 11/06/2015 2:30 PM EST 11/06/2015 2:30 PM EST Narrative Resulting Agency Comment Spec In Lab L Karthik Barlow MD MICROBIOLOGY - GENER AL ORDERABLES Performing Organization Address [facility] Phone Number [facility] * Shiga Toxin Detection (11/06/2015 1:49 PM EST) Pathologist [facility] Shiga Toxin Assay EIA Negative for Shiga Toxin 1 EIA Negative for Shiga Toxin 2 [facility] Stool specimen (specimen) 11/06/2015 1:49 PM EST 11/06/2015 2:33 PM EST Narrative Resulting Agency Comment Spec In Lab L Karthik Barlow MD MICROBIOLOGY - GENER AL ORDERABLES Performing Organization Address [facility] Phone Number [facility] * Campylobacter Antigen (11/06/2015 1:49 PM EST) Pathologist [facility] Campylobacter Ag Immunoassay Negative for Campylobacter Antigen [facility] Stool specimen (specimen) 11/06/2015 1:49 PM EST 11/06/2015 2:33 PM EST Narrative Resulting Agency Comment Spec In Lab L Karthik Barlow MD MICROBIOLOGY - GENER AL ORDERABLES Performing Organization Address [facility] de Phone Number [facility] * Stool culture (11/06/2015 1:49 PM EST) Stool Culture No enteric pathogens isolated [facility] Stool specimen (specimen) 11/06/2015 1:49 PM EST 11/06/2015 2:33 PM EST Narrative Resulting Agency Comment Spec In Lab L Karthik Barlow MD MICROBIOLOGY - GENER AL ORDERABLES Performing Organization Address [facility] Phone Number [facility] * Cryptosporidium Oocyst Antigen (11/06/2015 1:09 PM EST) Cryptosporidium Antigen Negative Negative [facility] Stool specimen (specimen) 11/06/2015 1:09 PM EST 11/06/2015 2:28 PM EST Narrative Resulting Agency Comment Spec In Lab L Karthik Barlow MD MICROBIOLOGY - GENER AL ORDERABLES Performing Organization Address [facility] Phone Number [facility] * Giardia antigen (11/06/2015 1:09 PM EST) Giardia Antigen Negative Negative [facility] Comment:Examination for othe r intestinal parasites requires foreign travel history. Stool specimen (specimen) 11/06/2015 1:09 PM EST 11/06/2015 2:28 PM EST Narrative Resulting Agency Comment Spec In Lab L Karthik Barlow MD MICROBIOLOGY - GENER AL ORDERABLES Performing Organization Address [facility] Phone Number [facility] * (ABNORMAL) Urine culture (11/06/2015 1:00 PM EST) Urine Culture 50,000-99,000 cfu/ml Escherichia coli(A) [facility] Organism Escherichia coli(A) [facility] Urine specimen obtained by clean catch procedure [...] Barlow MD MICROBIOLOGY - GENER AL ORDERABLES [facility] * (ABNORMAL) Urinalysis with reflex Culture (11/06/2015 [...] Urine Dipstick Hazy(A) Clear CERNER MILLENNIUM Specific [place] Urine Automated 1.020 1.002 - 1.030 CERNER [...] metabolic panel (non-fasting) (11/06/2015 10:24 AM EST) [facility] Glucose 81 65 - 199 mg/dL CERNER MILLENNIUM Comment:Diabetes: >=200 mg/d L plus symptoms Blood Urea Nitrogen 14 10 - 20 mg/dL CERNER MILLENNIUM Creatinine 1.15 0.80 - 1.50 mg/dL CERNER MILLENNIUM Comment: Please note that the pediatric reference intervals supplied above were not validated at [facility]. Results from pediatric patients should [...] the following links into your internet browser. [email or web address] Blood specimen (specimen) 11/06/2015 10:24 AM EST 11/06/2015 10:28 AM EST Narrative Resulting Agency Comment Spec In Lab Dion Barlow MD CHEMISTRY ORDERABLES Performing Organization Address [facility] de Phone Number DURGA ORDOÑEZEventRegistUNC HEALTH S[facility] * High Sensitivity CRP (11/06/2015 10:24 AM EST) C-Reactive Protein High Sensitivity 7.9 mg/L [facility] Comment: Interpretations: 1) For accurate cardiac risk [...] Barlow MD CHEMISTRY ORDERABLES Performing Organization Address [facility] de Phone Number DURGA FREDERICK documented in this encounter Visit Diagnoses Diagnosis Ulcerative colitis, without complications Diarrhea Pain in right hip Pain in joint, pelvic region and thigh Bilateral low back pain, with sciatica presence unspecified Abdominal pain, unspecified abdominal location Chronic ulcerative enterocolitis, unspecified complication documented in this encounter Care Teams Tooling Manager Relationship Specialty Start Date End Date Maximilian Fall MD [address] [place] [address] PCP - General 10/01/11 02/13/21 documented as of this encounter
--- OUTSIDE RECORDS SUMMARY | 2024-07-15 13:40 | XMS_ITS | Encounter Summary ---
Author Organization [facility] Address [facility] [place] [address] Care Team Providers Care Bowl Attendant Name Role Phone Maximilian Fall MD Primary Care Provider [phone] Reason for Visit * Reason Comments Follow-up Encounter Details Date Type Department Care Team (Late st Contact Info) Description 03/13/2015 1:00 PM EDT Follow-[place] [address] Dion Barlow MD [facility] [place] [address] Ulcerative colitis, other complication; Lethargy; Other ulcerative [...] Overview Note: ?? Colonoscopy 04/08/10 (Dr. Gomes [facility]) - inflammation only within the rectum and sigmoid; extent of the exam was to the hepatic flexure; biopsies proximal to the sigmoid nl ?? Repeat exam 11/27/11 ([facility]): mildly active [...] 6 months or sooner. Davina Barlow MD Press [employer] Cutter [employer] phlebotomist Section of Gastroenterology [place] [address] documented in this encounter Plan of Treatment Upcoming Encounters Date Type Department Care Team (Late st Contact Info) Description 08/15/2024 9:00 AM EDT Office [place] [phone] Dion Barlow MD [facility] [address] 09/01/2024 9:40 AM EDT Office Visit Cardiology at [address] [address] Franky Shaver MD [facility] [place] [address] 09/01/2024 11:20 AM EDT Office Visit Dermatology at [address] [address] Gómez Mercer MD [facility] DR [place] [address] 09/21/2024 2:45 PM EDT Office Visit [place] [address] Trung Hoyos MD [facility] [place] [address] Scheduled Orders Name Type Priority Associated Diagnoses [...] MD HEMATOLOGY ORDERABLE S Performing Organization Address [facility]/State/ZIP Co de Phone Number CERGIOVANNI ORDOÑEZENNIUM [...] Barlow MD CHEMISTRY ORDERABLES Performing Organization Address [facility] Co de Phone Number [...] Barlow MD CHEMISTRY ORDERABLES Performing Organization Address [facility]/ZIP Co de Phone Number JO-ANNGIOVANNI ORDOÑEZENNIUM * [...] intervals supplied above were not validated at [facility]. Results from pediatric patients [...] the following links into your internet browser. [email or web address] Blood specimen (specimen) 03/13/2015 2:00 PM EDT 03/13/2015 2:14 PM EDT Narrative Resulting Agency Comment Spec In Lab L Karthik Barlow MD CHEMISTRY ORDERABLES DURGA FREDERICK documented in this encounter Visit Diagnoses Diagnosis Ulcerative colitis, other complication Lethargy Other malaise and fatigue Other ulcerative colitis documented in this encounter Care Teams Bowl Attendant Relationship Specialty Start Date End Date Maximilian Fall MD [address] [place] [address] PCP - General 10/01/11 02/13/21 documented as of this encounter
--- OUTSIDE RECORDS SUMMARY | 2024-07-15 13:40 | XMS_ITS | Encounter Summary ---
Author Organization [facility] [place] [address] Care Team Providers Care Crime Scene Examiner Name Role Phone Maximilian Fall MD Primary Care Provider [phone] Encounter Details Date Type Department Care Team (Late st Contact Info) Description 11/08/2015 Orders [place] [address] Marcelle Weinberg, FINISHER MACHINE [facility] [place] [address] Urinary tract infection without hematuria, site unspecified [...] this encounter Progress Notes * Marcelle Weinberg, FINISHER MACHINE - 11/08/2015 5:53 PM EST I spoke [...] UA Latest Range: Clear Hazy (A) Spec Gill UA Latest Range: 1.002-1.030 1.020 pH UA [...] 9:00 AM EDT Office [place] [address] Dion Barlow MD [facility] [place] [address] 09/01/2024 9:40 AM EDT Office Visit Cardiology at [address] [place] [address] Franky Shaver MD [facility] [place] [address] 09/01/2024 11:20 AM EDT Office Visit Dermatology at [address] [place] [address] Gómez Mercer MD [facility] [address] 09/21/2024 2:45 PM EDT Office Visit [place] [address] Trung Hoyos MD [facility] [place] [address] documented as of this encounter Visit Diagnoses Diagnosis Urinary tract infection without hematuria, site unspecified documented in this encounter Care Teams Crime Scene Examiner Relationship Specialty Start Date End Date Maximilian Fall MD [address] [place] [address] PCP - General 10/01/11 02/13/21 documented as of this encounter
--- OUTSIDE RECORDS SUMMARY | 2024-07-15 13:40 | XMS_ITS | Encounter Summary ---
Author Organization [facility] [place] [address] Care Team Providers Care Hose Cementer Name Role Phone Maximilian Fall MD Primary Care Provider [phone] Encounter Details Date Type Department Care Team (Late st Contact Info) Description 09/21/2015 Telephone [place] [address] Marcelle Weinberg, COMMUNITY PRODUCT SPECIALIST [facility] [place] [address] Social History Tobacco Use Types Packs/Day Years [...] 9:00 AM EDT Office [place] [address] Dion Barlow MD [facility] [place] [address] 09/01/2024 9:40 AM EDT Office Visit Cardiology at [address] [address] Franky Shaver MD [facility] [place] [address] 09/01/2024 11:20 AM EDT Office Visit Dermatology at [facility] [address] [place] [address] Gómez Mercer MD [facility] DR EDDIE [place] [address] 09/21/2024 2:45 PM EDT Office Visit Pain and Spine Center at [place] [address] Trung Hoyos MD [facility] [place] [address] documented as of this encounter Visit Diagnoses Not on filedocumented in this encounter Care Teams Hose Cementer Relationship Specialty Start Date End Date Maximilian Fall MD [address] [place] [address] PCP - General 10/01/11 02/13/21 documented as of this encounter
--- OUTSIDE RECORDS SUMMARY | 2024-07-15 13:40 | XMS_ITS | Encounter Summary ---
Author Organization [facility] Address [facility] [place] [address] Care Team Providers Care Cane Weigher Name Role Phone Maximilian Fall MD Primary Care Provider [phone] Encounter Details Date Type Department Care Team (Latest Contact Info) Description 11/06/2015 11:18 AM EST - 11/06/2015 11:59 PM [facility] Hospital Encounter XRay at [address] [place] [address] Dion Barlow MD [facility] [place] [address] Pain in right hip; Bilateral low back [...] 9:00 AM EDT Office [place] [address] Dion Barlow MD [facility] [place] [address] 09/01/2024 9:40 AM EDT Office Visit Cardiology at [address] [phone] Franky Shaver MD [facility] [place] [address] 09/01/2024 11:20 AM EDT Office Visit Dermatology at [facility] [address] [place] [address] Gómez Mercer MD [facility] DR [place] [address] 09/21/2024 2:45 PM EDT Office Visit Pain and Spine Center at [facility] [place] [address] Trung Hoyos MD [facility] [place] [place] [address] documented as of this encounter Procedures Procedure [...] complication documented in this encounter Care Teams Cane Weigher Relationship Specialty Start Date End Date Maximilian Fall MD [address] [place] [address] PCP - General 10/01/11 02/13/21 documented as of this encounter
--- OUTSIDE RECORDS SUMMARY | 2024-07-15 13:41 | XMS_ITS | Encounter Summary ---
Author Organization [facility] Address [facility] [place] [address] Care Team Providers Care Diabetes Education Coordinator Name Role Phone Maximilian Fall MD Primary Care Provider [phone] Encounter Details Date Type Department Care Team (Late st Contact Info) Description 03/02/2012 External Results [place] [address] Dion Barlow MD [facility] [place] [address] Social History Tobacco Use Types Packs/Day Years [...] 9:00 AM EDT Office [place] [address] Dion Barlow MD [facility] [place] [address] 09/01/2024 9:40 AM EDT Office Visit Cardiology at [address] [place] [address] Franky Shaver MD [facility] [place] [address] 09/01/2024 11:20 AM EDT Office Visit Dermatology at [facility] [address] [place] [address] Gómez Mercer MD [facility] [place] [address] 09/21/2024 2:45 PM EDT Office Visit [facility] at [facility] [place] [address] Trung Hoyos MD [facility] [place] [address] documented as of this encounter Procedures Procedure Name Priority Date/Time Associated Diagnosis Comments EXTERNAL LAB RESULTS Routine 03/02/2012 documented in this encounter Results * External Lab Results (03/02/2012) Stool specimen (specimen) 03/02/2012 L Karthik Barlow MD CHEMISTRY ORDERABLES documented in this encounter Visit Diagnoses Not on filedocumented in this encounter Care Teams Diabetes Education Coordinator Relationship Specialty Start Date End Date Maximilian Fall MD [facility] [address] [facility] [place] [address] PCP - General 10/01/11 02/13/21 documented as of this encounter
--- OUTSIDE RECORDS SUMMARY | 2024-07-15 13:41 | XMS_ITS | Encounter Summary ---
[place] [address] Care Team Providers Care Body Trimmer Upholsterer Name Role Phone Maximilian Fall MD Primary Care Provider [phone] Encounter Details Date Type Department Care Team (Late st Contact Info) Description 09/30/2012 Telephone [place] [phone] Lilliaan Reece RN Social History Tobacco Use Types [...] louis ----- Message ----- From: Lab In [facility] Chong Sent: 09/20/2012 11:34 AM To: Marcelle [...] 9:00 AM EDT Office [place] [address] Dion Barlow MD [facility] [place] [address] 09/01/2024 9:40 AM EDT Office Visit Cardiology at [address] [place] [address] Franky Shaver MD [facility] [place] [address] 09/01/2024 11:20 AM EDT Office Visit Dermatology at [facility] [address] [place] [address] Gómez Mercer MD [facility] [place] [address] 09/21/2024 2:45 PM EDT Office Visit [facility] [place] [address] Trung Hoyos MD [facility] [place] [place] [address] documented as of this encounter Visit Diagnoses Not on filedocumented in this encounter Care Teams Body Trimmer Upholsterer Relationship Specialty Start Date End Date Maximilian Fall MD [address] [place] [address] PCP - General 10/01/11 02/13/21 documented as of this encounter
--- OUTSIDE RECORDS SUMMARY | 2024-07-15 13:41 | XMS_ITS | Encounter Summary ---
Author Organization [facility] Address [facility] [place] [address] Care Team Providers Care Job Boss Name Role Phone Maximilian Fall MD Primary Care Provider [phone] Encounter Details Date Type Department Care Team (Latest Contact Info) Description 03/16/2012 12:32 PM EDT - 03/16/2012 3:00 PM EDT Hospital Encounter [place] [address] Enrico Tellez MD [facility] [place] [address] Discharge Disposition: Home Social History Tobacco Use [...] please contact your M. D. Please call [phone] BEFORE 5PM with any questions or concerns, AFTER 5PM call [phone] andask to speak to the Health Care Coach catering operations manager. * Patient Instructions* Enrico Tellez MD - 03/16/2012 1:27 PM EDT Please see Recommendations in the Provation procedure report which is documented in the procedural note in E-DH. * Attachments The following attachments cannot be sent through Care Everywhere. * SIGMOIDOSCOPY: WHAT TO EXPECT AT HOME (TANZANIAN) documented in this encounter Medications at Time [...] 9:00 AM EDT Office [place] [address] Dion Barlow MD [facility] [place] [address] 09/01/2024 9:40 AM EDT Office Visit Cardiology at [address] [place] [address] Franky Shaver MD [facility] [place] [address] 09/01/2024 11:20 AM EDT Office Visit Dermatology at [facility] [address] [place] [address] Gómez Mercer MD [facility] [place] [address] 09/21/2024 2:45 PM EDT Office Visit [place] [address] Trung Hoyos MD [facility] [place] [address] documented as of this encounter Procedures Procedure Name Priority Date/Time Associated Diagnosis Comments SURGICAL PATHOLOGY REPORT Routine 03/16/2012 4:52 PM EDT SPECIMEN TO PATHOLOGY Routine 03/16/2012 2:09 PM EDT FLEXIBLE SIGMOIDOSCOPY (WRVU 0.84) 03/16/2012 1:27 PM EDT study patient POCT GLUCOSE Routine 03/16/2012 1:16 PM EDT documented in this encounter Results * SURGICAL PATHOLOGY REPORT (03/16/2012 4:52 PM EDT) Surgical Pathology Report ? [facility] ? Provider: ?? ENRICO TELLEZ ?Pt. Name: ?? SHANTNAYA ? Acc #: ?[id number] ?Pt. ? Col Date: ?? 03/16/2012 ? [...] Organization Address [facility] de Phone Number DURGA FREDERICK * Specimen to Pathology (surgical or derm) (03/16/2012 2:09 PM EDT) AP Specimen 03/16/2012 2:09 PM EDT 03/16/2012 2:09 PM EDT Narrative DURGA TIAGOENNIUM - 03/16/2012 2:09 PM EDT Specimen requisition ordered. ??Separate Pathology report to follow Enrico Tellez MD PATHOLOGY/CYTOLOGY O CEE Performing Organization Address [facility] de Phone Number DURGA FREDERICK * POCT [...] O CEE Performing Organization Address [facility] de Phone Number DURGA FREDERICK [...] RN) documented in this encounter Care Teams Job Boss Relationship Specialty Start Date End Date Maximilian Fall MD [address] [place] [address] PCP - General 10/01/11 02/13/21 documented as of this encounter
--- OUTSIDE RECORDS SUMMARY | 2024-07-15 13:41 | XMS_ITS | Encounter Summary ---
Author Organization [facility] Address [facility] [place] [address] Care Team Providers Care Engineering Lecturer Name Role Phone Maximilian Fall MD Primary Care Provider [phone] Encounter Details Date Type Department Care Team (Late st Contact Info) Description 11/27/2011 1:00 PM EST - 11/27/2011 1:45 PM EST [place] [address] Dion Osullivan MD [facility] [place] [address] COLONOSCOPY, DIAGNOSTIC (WRVU 3.26) Social History Tobacco [...] - 11/27/2011 2:37 PM EST Please call [phone], before 5pm with problems, questions or concerns, after 5pm call the Hospital at [phone] and ask to speak to the Promotion Specialist prison classification counselor and the tractor operator helper will contactthat person for you. Discharge instructions [...] Osullivan MD - 11/27/2011 1:06 PM EST [facility] Operative Note Patient Name: Naya Rodriguez : [id number] MR#: [id number] Case Date: 11/27/2011 Surgeon: Surgeon(s) and Role: * Dion OSULLIVAN MD - Primary Please see the Provation procedure report in the Procedures tab in eDH. documented in this encounter Plan of Treatment Upcoming Encounters Date Type Department Care Team (Late st Contact Info) Description 08/15/2024 9:00 AM EDT Office [place] [phone] Dion Ousllivan MD [facility] [place] [address] 09/01/2024 9:40 AM EDT Office Visit Cardiology at [address] [address] Franky Shaver MD [facility] [place] [address] 09/01/2024 11:20 AM EDT Office Visit Dermatology at [address] [address] Gómez Mercer MD [facility] DR EDDIE [place] [address] 09/21/2024 2:45 PM EDT Office Visit [place] [address] Trung Hoyos MD [facility] [place] [address] documented as of this encounter Procedures Procedure [...] 4:38 PM EST) Surgical Pathology Report ? [facility] ? Provider: ?? Dion OSULLIVAN ?Pt. Name: ?? NAYA RODRIGUEZ ? Acc #: ?[id number] ?Pt. ? Col Date: ?? 11/27/2011 ?/Sex: [...] Stephen, rubbery mucosal polyp, the larger ? [facility] ? Provider: ?? Dion OSULLIVAN ?Pt. Name: ?? NAYA RODRIGUEZ ? Acc #: ?[id number] ?Pt. ? Col Date: ?? 11/27/2011 ?/Sex: [...] Address [facility] Co de Phone Number [facility] * Specimen to Pathology (surgical or derm) (11/27/2011 1:53 PM EST) AP Specimen 11/27/2011 1:53 PM EST 11/27/2011 1:53 PM EST Narrative [facility] - 11/27/2011 1:53 PM EST Specimen requisition ordered. ??Separate Pathology report to follow L Karthik Osullivan MD PATHOLOGY/CYTOLOGY O CEE Performing Organization Address City/[facility] Co de Phone Number [facility] * Specimen to Pathology (surgical or derm) (11/27/2011 1:53 PM EST) AP Specimen 11/27/2011 1:53 PM EST 11/27/2011 1:53 PM EST Narrative [facility] - 11/27/2011 1:53 PM EST Specimen requisition ordered. ??Separate Pathology report to follow L Karthik Osullivan MD PATHOLOGY/CYTOLOGY O CEE Performing Organization Address [facility] Co de Phone Number [facility] * COLONOSCOPY (11/27/2011 1:01 PM EST) COLONOSCOPY [facility] Endoscopy Patient Name: Naya Rodriguez ? Procedure Date: 11/27/2011 01:01:31 PM ? Date of : 1950 ? Age: 61 ? Procedure: ? Colonoscopy Indications: ? Follow-up of left-sided chronic ? ulcerative colitis Providers: ? L Karthik Osullivan MD, Tyron Cee, ? RN, Qing Lópze, Sfdc Solution Architect Referring MD: ?Maximilian Fall MD Medicines: ? [...] time) documented in this encounter Care Teams Engineering Lecturer Relationship Specialty Start Date End Date Maximilian Fall MD [address] [place] [address] PCP - General 10/01/11 02/13/21 documented as of this encounter
--- OUTSIDE RECORDS SUMMARY | 2024-07-15 13:41 | XMS_ITS | Encounter Summary ---
Author Organization [facility] Address [facility] [place] [address] Care Team Providers Care Lpn Name Role Phone More Naylor MD Primary Care Provider [phone] Reason for Visit * Reason Comments Follow-up Encounter Details Date Type Department Care Team (Late st Contact Info) Description 09/20/2012 10:00 AM EDT Follow-[place] [address] Dion Barlow MD [facility] [place] [address] Ulcerative colitis (Primary Dx); Dyspepsia; UC (ulcerative [...] ??? Ulcerative colitis Colonoscopy 04/08/10 (Dr. G[facility]) - inflammation only within the rectum and sigmoid; extent of the exam was to the hepatic flexure; biopsies proximal to the sigmoid nl Repeat exam [place]/27/11 [place] mildly active colitis in the sigmoid colon [...] has left-sided ulcerative colitis with persistently active ugow-mf-pbspgcvn symptoms andmildly active disease endoscopically. His colitis [...] NAYLOR MD [address] [facility] [address] documented in this encounter Plan of Treatment Upcoming Encounters Date Type Department Care Team (Late st Contact Info) Description 08/15/2024 9:00 AM EDT Office [place] [phone] Dion Barlow MD [facility] [place] [place] [address] 09/01/2024 9:40 AM EDT Office Visit Cardiology at [address] [address] Franky Shaver MD [facility] [place] [address] 09/01/2024 11:20 AM EDT Office Visit Dermatology at [address] [address] Gómez Mercer MD [facility] [place] [address] 09/21/2024 2:45 PM EDT Office Visit [facility] [place] [phone] Trung Hoyos MD [facility] [place] [address] documented as of this encounter Procedures Procedure [...] MD HEMATOLOGY ORDERABLE S Performing Organization Address [facility] Co de Phone Number [facility] * (ABNORMAL) TSH (09/20/2012 11:17 AM EDT) Thyroid Stimulating Hormone 4.77(H) 0.27 - 4.20 mcIU/mL [facility] COLBERTI[facility] Blood specimen (specimen) 09/20/2012 11:17 AM EDT 09/20/2012 11:23 AM EDT Narrative Resulting Agency Comment Spec In Lab L Karthik Barlow MD CHEMISTRY ORDERABLES Performing Organization Address [facility] Phone Number [facility] COLBERT[facility] * Lipase (09/20/2012 11:17 AM EDT) Lipase 32 0 - 60 unit/L [facility] Blood specimen (specimen) 09/20/2012 11:17 AM EDT 09/20/2012 11:23 AM EDT Narrative Resulting Agency Comment Spec In Lab L Karthik Barlow MD CHEMISTRY ORDERABLES Performing Organization Address [facility] Phone Number [facility] COLBERTI[facility] * High Sensitivity CRP (09/20/2012 11:17 AM EDT) C-Reactive Protein High Sensitivity 3.7 mg/L [facility] Comment: Interpretations: 1) For cardiac risk [...] Lab L Karthik Barlow MD CHEMISTRY ORDERABLES [facility] * (ABNORMAL) CMP w/fasting Glucose (09/20/2012 11:17 AM EDT) Glucose Fasting 110(H) 65 - 99 mg/dL [facility] Comment: ?Fasting* Glucose Interpretive Criteria Normal ?65-99 [...] of Diabetes Mellitus, Position Statement from the [place] [employer]. ??Diabetes Care, Volume 33, Supplement 1, Nov 2009 Blood Urea Nitrogen 13 10 - 20 mg/dL [facility] MILLENNI[facility] Creatinine 0.81 0.80 - 1.50 mg/dL [facility]ER MILLENNIUM Comment: Please note that the pediatric reference intervals supplied above were not validated at [facility]. Results from pediatric patients should be interpreted [...] documented in this encounter Care Teams Lpn Relationship Specialty Start Date End Date More Naylor MD [address] [place] [address] PCP - General 10/01/11 02/13/21 documented as of this encounter
--- OUTSIDE RECORDS SUMMARY | 2024-07-15 13:41 | XMS_ITS | Encounter Summary ---
Author Organization [facility] Address [facility] [place] [address] Care Team Providers Care Substation Electrician Supervisor Name Role Phone More Naylor MD Primary Care Provider [phone] Reason for Visit * Reason Comments Ulcerative Colitis Encounter Details Date Type Department Care Team (Late st Contact Info) Description 04/21/2012 1:30 PM EDT [place] [address] Dion Barlow MD [facility] [place] [address] Ulcerative colitis (Primary Dx) Discharge Disposition: Home [...] Ulcerative colitis Colonoscopy 04/08/10 (Dr. Gomes [facility]) - inflammation only within the rectum and sigmoid; extent of the exam was to the hepatic flexure; biopsies proximal to the sigmoid nl Repeat exam 11/27/11 ([facility] [...] has left-sided ulcerative colitis with persistently active seya-id-hhheivsb symptoms andmildly active disease endoscopically. He failed [...] CC: MORE NAYLOR MD [address] [facility] [address] documented in this encounter Plan of Treatment Upcoming Encounters Date Type Department Care Team (Late st Contact Info) Description 08/15/2024 9:00 AM EDT Office [place] [address] Dion Barlow MD [facility] [place] [address] 09/01/2024 9:40 AM EDT Office Visit Cardiology at [address] [place] [address] Franky Shaver MD [facility] [place] [address] 09/01/2024 11:20 AM EDT Office Visit Dermatology at [facility] [address] [place] [address] Gómez Mercer MD [facility] [place] [address] 09/21/2024 2:45 PM EDT Office Visit [place] [address] Trung Hoyos MD [facility] [place] [address] documented as of this encounter Visit Diagnoses Diagnosis Ulcerative colitis- Primary Ulcerative colitis, unspecified documented in this encounter Care Teams Substation Electrician Supervisor Relationship Specialty Start Date End Date More Naylor MD [address] [facility] 1 [place] [address] PCP - General 10/01/11 02/13/21 documented as of this encounter
--- OUTSIDE RECORDS SUMMARY | 2024-07-15 13:41 | XMS_ITS | Encounter Summary ---
Author Organization [facility] Address [facility] [place] [address] Care Team Providers Care Chemical Process Engineer Name Role Phone Maximilian Fall MD Primary Care Provider [phone] Encounter Details Date Type Department Care Team (Late st Contact Info) Description 03/02/2012 External Results [place] [address] Dion Barlow MD [facility] [place] [address] Social History Tobacco Use Types Packs/Day Years [...] 9:00 AM EDT Office Visit [place] [address] Dion Barlow MD [facility] [place] [address] 09/01/2024 9:40 AM EDT Office Visit Cardiology at [address] [place] [address] Franky Shaver MD [facility] [place] [address] 09/01/2024 11:20 AM EDT Office Visit Dermatology at [facility] [address] [place] [address] Gómez Mercer MD [facility] DR [place] [address] 09/21/2024 2:45 PM EDT Office Visit [facility] [place] [address] Trung Hoyos MD [facility] [place] [address] documented as of this encounter Procedures Procedure Name Priority Date/Time Associated Diagnosis Comments EXTERNAL LAB RESULTS Routine 03/04/2012 documented in this encounter Results * External Lab Results (03/04/2012) Blood specimen (specimen) L Karthik Barlow MD CHEMISTRY ORDERABLES documented in this encounter Visit Diagnoses Not on filedocumented in this encounter Care Teams Chemical Process Engineer Relationship Specialty Start Date End Date Maximilian Fall MD [facility] [address] [facility] [place] [address] PCP - General 10/01/11 02/13/21 documented as of this encounter
--- OUTSIDE RECORDS SUMMARY | 2024-07-15 13:41 | XMS_ITS | Encounter Summary ---
Author Organization [facility] Address [facility] [place] [address] Care Team Providers Care Movie Extra Name Role Phone Maximilian Fall MD Primary Care Provider Encounter Details Date Type Department Care Team (Latest Contact Info) Description 03/02/2012 9:31 AM EDT - 03/02/2012 11:59 PM EDT Hospital Encounter XRay at [address] [place] [address] CLINIC, Dion Edmonds MD [facility] [place] [address] Exam for clinical research Discharge Disposition: Home [...] AM EDT Office [place] [address] Dion Barlow MD [facility] [place] [place] [address] 09/01/2024 9:40 AM EDT Office Visit Cardiology at [address] [phone] Franky Shaver MD [facility] [place] [address] 09/01/2024 11:20 AM EDT Office Visit Dermatology at [facility] [address] [place] [address] Gómez Mercer MD [facility] DR [place] [address] 09/21/2024 2:45 PM EDT Office Visit [place] [address] Trung Hoyos MD [facility] [place] [address] documented as of this encounter Procedures Procedure [...] trial documented in this encounter Care Teams Movie Extra Relationship Specialty Start Date End Date Maximilian Fall MD [address] [place] [address] PCP - General 10/01/11 02/13/21 documented as of this encounter
--- OUTSIDE RECORDS SUMMARY | 2024-07-15 13:41 | XMS_ITS | Encounter Summary ---
Author Organization [facility] Address [facility] [place] [address] Care Team Providers Care Brick And Block Mason Name Role Phone Maximilian Fall MD Primary Care Provider [phone] Encounter Details Date Type Department Care Team (Latest Contact Info) Description 11/27/2011 11:49 AM EST - 11/27/2011 2:45 PM EST Hospital Encounter [place] [address] Dion Osullivan MD [facility] [place] [address] Discharge Disposition: Home Social History Tobacco Use [...] - 11/27/2011 2:37 PM EST Please call [phone], before 5pm with problems, questions or concerns, after 5pm call the Hospital at [phone] and ask to speak to the Curtain Inspector reclamation worker and the concrete saw operator will contactthat person for you. Discharge instructions reviewed with patient who expresses understanding. * Patient Instructions* Dion Osullivan MD - 11/27/2011 1:07 PM EST Please see Recommendations in the Provation procedure report which is documented in the procedural note in E-DH. * Attachments The following attachments cannot be sent through Care Everywhere. * COLONOSCOPY: WHAT TO EXPECT AT HOME ([place]) documented in this encounter Medications at Time [...] Osullivan MD - 11/27/2011 1:06 PM EST [facility] Operative Note Patient Name: Naya Rodriguez : [id number] MR#: [id number] Case Date: 11/27/2011 Surgeon: Surgeon(s) and Role: * Dion OSULLIVAN MD - Primary Please see the Provation procedure report in the Procedures tab in eDH. documented in this encounter Plan of Treatment Upcoming Encounters Date Type Department Care Team (Late st Contact Info) Description 08/15/2024 9:00 AM EDT Office [place] [address] Dion Osullivan MD [facility] [place] [address] 09/01/2024 9:40 AM EDT Office Visit Cardiology at [address] [address] Franky Shaver MD [facility] [place] [address] 09/01/2024 11:20 AM EDT Office Visit Dermatology at [address] [phone] Gómez Mercer MD [facility] [address] 09/21/2024 2:45 PM EDT Office Visit [place] [address] Trung Hoyos MD [facility] [place] [address] documented as of this encounter Procedures Procedure [...] 4:38 PM EST) Surgical Pathology Report ? [facility] ? Provider: ?? Dion OSULLIVAN ?Pt. Name: ?? SHANTNAYA ? Acc #: ?[id number] ?Pt. ? Col Date: ?? 11/27/2011 ?/Sex: [...] Stephen, rubbery mucosal polyp, the larger ? [facility] ? Provider: ?? Dion OSULILVAN ?Pt. Name: ?? NAYA RODRIGUEZ ? Acc #: ?[id number] ?Pt. ? Col Date: ?? 11/27/2011 ?/Sex: [...] O CEE Performing Organization Address City/[facility] Co de Phone Number [facility] * Specimen to Pathology (surgical or derm) (11/27/2011 1:53 PM EST) AP Specimen 11/27/2011 1:53 PM EST 11/27/2011 1:53 PM EST Narrative [facility] - 11/27/2011 1:53 PM EST Specimen requisition ordered. ??Separate Pathology report to follow L Karthik Osullivan MD PATHOLOGY/CYTOLOGY O CEE Performing Organization Address City/[facility] Co de Phone Number [facility] * Specimen to Pathology (surgical or derm) (11/27/2011 1:53 PM EST) AP Specimen 11/27/2011 1:53 PM EST 11/27/2011 1:53 PM EST Narrative [facility] - 11/27/2011 1:53 PM EST Specimen requisition ordered. ??Separate Pathology report to follow L Karthik Osullivan MD PATHOLOGY/CYTOLOGY O CEE Performing Organization Address City/[facility] Co de Phone Number [facility] * COLONOSCOPY (11/27/2011 1:01 PM EST) COLONOSCOPY [facility] Endoscopy Patient Name: Naya Rodriguez ? Procedure Date: 11/27/2011 01:01:31 PM ? Date of : 1950 ? Age: 61 ? Procedure: ? Colonoscopy Indications: ? Follow-up of left-sided chronic ? ulcerative colitis Providers: ? L Karthik Osullivan MD, Tyron Cee, ? RN, Qing López, Transmission Engineer Referring MD: ?Maximilian Fall MD Medicines: ? [...] time) documented in this encounter Care Teams Brick And Block Mason Relationship Specialty Start Date End Date Maximilian Fall MD [address] [place] [address] PCP - General 10/01/11 02/13/21 documented as of this encounter
--- OUTSIDE RECORDS SUMMARY | 2024-07-15 13:41 | XMS_ITS | Encounter Summary ---
Author Organization [facility] [place] [address] Care Team Providers Care Resident Service Coordinator Name Role Phone Maximilian Fall MD Primary Care Provider [phone] Encounter Details Date Type Department Care Team (Late st Contact Info) Description 09/30/2012 Telephone [place] [phone] Lilliana Reece RN Social History Tobacco Use [...] 9:00 AM EDT Office [place] [address] Dion Barlow MD [facility] [place] [address] 09/01/2024 9:40 AM EDT Office Visit Cardiology at [address] [place] [address] Franky Shaver MD [facility] [place] [address] 09/01/2024 11:20 AM EDT Office Visit Dermatology at [facility] [address] [place] [address] Gómez Mercer MD [facility] [address] 09/21/2024 2:45 PM EDT Office Visit [place] [address] Trung Hoyos MD [facility] [place] [address] documented as of this encounter Visit Diagnoses Not on filedocumented in this encounter Care Teams Resident Service Coordinator Relationship Specialty Start Date End Date Maximilian Fall MD [address] [facility] 1 [place] [address] PCP - General 10/01/11 02/13/21 documented as of this encounter
--- OUTSIDE RECORDS SUMMARY | 2024-07-15 13:41 | XMS_ITS | Encounter Summary ---
[facility] Organization [facility] Address [facility] [place] [address] Care Team Providers Care Heel Seat Filler Name Role Phone Maximilian Fall MD Primary Care Provider [phone] Encounter Details Date Type Department Care Team (Latest Contact Info) Description 10/01/2012 2:23 PM EST - 10/01/2012 6:31 PM EST Hospital Encounter [place] [address] Dion Osullivan MD [facility] [place] [address] Discharge Disposition: Home Social History Tobacco Use [...] GI ENDOSCOPY: WHAT TO EXPECT AT HOME (BOLIVIAN) documented in this encounter Medications at Time [...] 9:23 PM EST * Op Note - iDon Osullivan MD - 10/01/2012 5:07 PM EST [facility] [place] Note Patient Name: Naya Rodriguez : [id number] MR#: [id number] Case Date: 10/01/2012 Surgeon: Surgeon(s) and Role: [...] Office Visit [place] [address] Dion Osullivan MD [facility] [place] [address] 09/01/2024 9:40 AM EDT Office Visit Cardiology at [address] [phone] Franky Shaver MD [facility] [place] [address] 09/01/2024 11:20 AM EDT Office Visit Dermatology at [address] [place] [phone] Gómez Mercer MD [facility] [place] [address] 09/21/2024 2:45 PM EDT Office Visit [facility] [place] [address] Trung Hoyos MD [facility] [place] [address] documented as of this encounter Procedures Procedure [...] 5:54 PM EST) Surgical Pathology Report ? [facility] ? Provider: ?? Dion OSULLIVAN ?Pt. Name: ?? SHANT NAYA Joya ? Acc #: ?[id number] ?Pt. ? Col Date: ?? 10/01/2012 ? [...] MD PATHOLOGY/CYTOLOGY O CEE Performing Organization Address City/[facility] Co de Phone Number [facility] * Specimen to Pathology (surgical or derm) (10/01/2012 5:09 PM EST) AP Specimen 10/01/2012 5:09 PM EST 10/01/2012 5:09 PM EST Narrative [facility] - 10/01/2012 5:09 PM EST Specimen requisition ordered. ??Separate Pathology report to follow L Karthik Osullivan MD PATHOLOGY/CYTOLOGY O CEE [facility] * UPPER GI ENDOSCOPY (10/01/2012 4:41 PM EST) UPPER GI ENDOSCOPY [facility] Endoscopy Patient Name: Naya Rodriguez ? Procedure Date: 10/01/2012 4:41 PM ? Date of : 1950 ? Age: 62 ? Order #: [id number] ? Procedure: ? Upper GI endoscopy Indications: ? Epigastric abdominal pain Providers: ? L Karthik Osullivan MD, Alannah Singletary, ? RN, Mona Osborne, Nutrition Director Referring : ?Maximilian Fall MD Medicines: ? [...] SURGICAL ORD ERABLES Performing Organization Address [facility] Co de Phone Number PROVATION * POCT GLUCOSE (10/01/2012 4:27 PM EST) Glucose, POC 84 60 - 199 mg/dL [facility] Comment: Supplemental ranges: <110 mg/dL [...] RN) documented in this encounter Care Teams Heel Seat Filler Relationship Specialty Start Date End Date Maximilian Fall MD [address] [place] [address] PCP - General 10/01/11 02/13/21 documented as of this encounter
--- OUTSIDE RECORDS SUMMARY | 2024-07-15 13:41 | XMS_ITS | Encounter Summary ---
Author Organization [facility] Address [facility] [place] [address] Care Team Providers Care Configuration Management Manager Name Role Phone Maximilian Fall MD Primary Care Provider [phone] Reason for Visit * Reason Onset Date Comments Research 02/20/2012 discuss [facility] Encounter Details Date Type Department Care Team (Late st Contact Info) Description 02/20/2012 Telephone [place] [address] Mica Gore, JAZMINE [facility] [place] [address] Research (discuss [facility]) Social History Tobacco [...] 9:00 AM EDT Office [place] [phone] Dion Barlow MD [facility] [place] [address] 09/01/2024 9:40 AM EDT Office Visit Cardiology at [address] [address] Franky Shaver MD [facility] [address] 09/01/2024 11:20 AM EDT Office Visit Dermatology at [facility] [address] [place] [phone] Gómez Mercer MD [facility] DR EDDIE [place] [address] 09/21/2024 2:45 PM EDT Office Visit [place] [phone] Trung Hoyos MD [facility] [place] [address] documented as of this encounter Visit Diagnoses Not on filedocumented in this encounter Care Teams Configuration Management Manager Relationship Specialty Start Date End Date Maximilian Fall MD [address] [place] [address] PCP - General 10/01/11 02/13/21 documented as of this encounter
--- OUTSIDE RECORDS SUMMARY | 2024-07-15 13:41 | XMS_ITS | Encounter Summary ---
Author Organization [facility] Address [facility] [place] [address] Care Team Providers Care Tire Beader Maker Name Role Phone Maximilian Fall MD Primary Care Provider [phone] Encounter Details Date Type Department Care Team (Late st Contact Info) Description 03/16/2012 Orders [place] [phone] Dion Barlow MD [facility] [place] [address] Ulcerative colitis (Primary Dx) Social History Tobacco [...] EDT Office [place] [phone] Dion Barlow MD [facility] [place] [address] 09/01/2024 9:40 AM EDT Office Visit Cardiology at [address] [place] [phone] Franky Shaver MD [facility] [place] [address] 09/01/2024 11:20 AM EDT Office Visit Dermatology at [facility] [address] [place] [phone] Gómez Mercer MD [facility] DR [place] [address] 09/21/2024 2:45 PM EDT Office Visit [place] [phone] Trung Hoyos MD [facility] [place] [address] documented as of this encounter Visit Diagnoses Diagnosis Ulcerative colitis- Primary Ulcerative colitis, unspecified documented in this encounter Care Teams Tire Beader Maker Relationship Specialty Start Date End Date Maximilian Fall MD [address] [facility] [address] [place] [address] PCP - General 10/01/11 02/13/21 documented as of this encounter
--- OUTSIDE RECORDS SUMMARY | 2024-07-15 13:41 | XMS_ITS | Encounter Summary ---
Author Organization [facility] Address [facility] [place] [address] Care Team Providers Care Fire Safety Inspector Name Role Phone More Naylor MD Primary Care Provider [phone] Reason for Visit * Reason Comments Follow-up Encounter Details Date Type Department Care Team (Late st Contact Info) Description 04/02/2012 12:30 PM EDT Follow-[place] [address] Marcelle Weinberg, JAZMINE [facility] [place] [address] UC (ulcerative colitis) (Primary Dx) Discharge Disposition: [...] Ulcerative colitis Colonoscopy 04/08/10 (Dr. Gomes [facility]) - inflammation only within the rectum and sigmoid; extent of the exam was to the hepatic flexure; biopsies proximal to the sigmoid nl Repeat exam 11/27/11 ([facility] mildly active colitis in the sigmoid colon [...] CC: MORE NAYLOR MD [address] [facility] [address] documented in this encounter Plan of Treatment Upcoming Encounters Date Type Department Care Team (Late st Contact Info) Description 08/15/2024 9:00 AM EDT Office Visit [place] [phone] Dion Barlow MD [facility] [place] [address] 09/01/2024 9:40 AM EDT Office Visit Cardiology at [address] [phone] Franky Shaver MD [facility] [place] [address] 09/01/2024 11:20 AM EDT Office Visit Dermatology at [facility] [address] [place] [phone] Gómez Mercer MD [facility] DR [place] [address] 09/21/2024 2:45 PM EDT Office Visit [facility] [place] [address] Trung Hoyos MD [facility] [place] [address] documented as of this encounter Procedures Procedure [...] MD HEMATOLOGY ORDERABLE S Performing Organization Address City/[facility]/ZIP Co de Phone Number DURGA FREDERICK [...] Barlow MD CHEMISTRY ORDERABLES Performing Organization Address [facility] [[email or web address]] de Phone Number [facility] * Amylase (04/02/2012 1:39 PM EDT) Amylase 32 28 - 100 unit/L [facility]ERNER MILLENNIUM Blood specimen (specimen) 04/02/2012 1:39 PM EDT 04/02/2012 1:48 PM EDT Narrative Resulting Agency Comment Spec In Lab L Karthik Barlow MD CHEMISTRY ORDERABLES Performing Organization Address [facility] Phone Number [facility] * High Sensitivity CRP (04/02/2012 1:39 PM [...] Barlow MD CHEMISTRY ORDERABLES Performing Organization Address [facility] Number [facility] * Sedimentation rate (04/02/2012 1:39 PM EDT) Sedimentation Rate Automated 12 0 - 15 mm/hr [facility] Blood specimen (specimen) 04/02/2012 1:39 PM EDT 04/02/2012 1:48 PM EDT Narrative Resulting Agency Comment Spec In Lab L Karthik Barlow MD HEMATOLOGY ORDERABLE S Performing Organization Address [facility] Number [facility] * (ABNORMAL) CMP w/fasting Glucose (04/02/2012 1:39 PM EDT) Glucose Fasting 158(H) 65 - 99 mg/dL [facility] Comment: ?Fasting* Glucose Interpretive Criteria Normal ?65-99 [...] of Diabetes Mellitus, Position Statement from the [place] [employer]. ??Diabetes Care, Volume 33, Supplement [...] K, Ania NA, Jasmin AK, Edson TS, Digoenes AD, Sangita ALMA ROSA. Relative performance of the MDRD and CKD-EPI equations for estimating glomerular filtration rate among patients with varied clinical presentations. Clin J Am Soc Nephrol;6:1963-72. Blood specimen (specimen) 04/02/2012 1:39 PM EDT 04/02/2012 1:48 PM EDT Narrative Resulting Agency Comment Spec In Lab L Karthik Barlow MD CHEMISTRY ORDERABLES [facility] * (ABNORMAL) CBC (with Diff) (04/02/2012 1:39 [...] unspecified documented in this encounter Care Teams Fire Safety Inspector Relationship Specialty Start Date End Date More Naylor MD [address] [place] [address] PCP - General 10/01/11 02/13/21 documented as of this encounter
--- OUTSIDE RECORDS SUMMARY | 2024-07-15 13:41 | XMS_ITS | Encounter Summary ---
Author Organization [facility] Address [facility] [place] [address] Care Team Providers Care Padder Cushion Name Role Phone More Naylor MD Primary Care Provider [phone] Reason for Visit * Reason Comments Follow-up Encounter Details Date Type Department Care Team (Late st Contact Info) Description 01/28/2012 3:00 PM EST [place] [address] Dion Barlow MD [facility] [place] [address] Ulcerative colitis (Primary Dx) Discharge Disposition: Home [...] first time since his colonoscopy in early [facility]. At that time, he had a [...] sooner of symptoms worsen. Davina Barlow MD Internet Assessorsr. strategic sourcing manager Section of Gastroenterology [place] [address] CC: MORE NAYLOR MD [address] [facility] [address] documented in this encounter Plan of Treatment Upcoming Encounters Date Type Department Care Team (Late st Contact Info) Description 08/15/2024 9:00 AM EDT [place] [address] Dion Barlow MD [facility] [place] [address] 09/01/2024 9:40 AM EDT Office Visit Cardiology at [address] [phone] Franky Shaver MD [facility] [place] [address] 09/01/2024 11:20 AM EDT Office Visit Dermatology at [address] [phone] Gómez Mercer MD [facility] [place] [address] 09/21/2024 2:45 PM EDT Office Visit [place] [phone] Trung Hoyos MD [facility] [place] [address] documented as of this encounter Visit Diagnoses Diagnosis Ulcerative colitis- Primary Ulcerative colitis, unspecified documented in this encounter Care Teams Padder Cushion Relationship Specialty Start Date End Date More Naylor MD [address] [place] [address] PCP - General 10/01/11 02/13/21 documented as of this encounter
--- OUTSIDE RECORDS SUMMARY | 2024-07-15 13:41 | XMS_ITS | Encounter Summary ---
Author Organization [facility] [place] [address] Care Team Providers Care Engineer Booster And Exhauster Name Role Phone Maximilian Fall MD Primary Care Provider [phone] Encounter Details Date Type Department Care Team (Late st Contact Info) Description 03/03/2012 Orders [place] [phone] Mica Gore APRN [facility] [place] [address] Ulcerative colitis (Primary Dx) Social History Tobacco [...] 9:00 AM EDT Office [place] [phone] Dion Barlow MD [facility] [place] [address] 09/01/2024 9:40 AM EDT Office Visit Cardiology at [address] [place] [address] Franky Shaver MD [facility] [place] [address] 09/01/2024 11:20 AM EDT Office Visit Dermatology at [facility] [address] [place] [address] Gómez Mercer MD [facility] [place] [address] 09/21/2024 2:45 PM EDT Office Visit [facility] [place] [phone] Trung Hoyos MD [facility] [place] [address] documented as of this encounter Procedures Procedure Name Priority Date/Time Associated Diagnosis Comments FLEXIBLE SIGMOIDOSCOPY Routine 2 1:15 PM EDT Ulcerative colitis documented in this encounter Results * FLEXIBLE SIGMOIDOSCOPY (03/16/2012 1:15 PM EDT) [facility] Signature FLEXIBLE SIGMOIDOSCOPY [facility] Endoscopy Patient Name: Brian Rodriguez ? Procedure Date: 03/16/2012 1:15 PM ? Date of : 1950 ? Age: 61 ? Order #: [id number] ? Procedure: ? Flexible Sigmoidoscopy Indications: ? pt with active UC, assess severity ? prior to entry in MTX study Providers: ? Enrico Tellez MD, April Augustine ? RONY Archibald, Kingsley Oneal, ? Film Maker Referring MD: ?Maximilian Fall MD Requesting Provider: [...] Recommendation: ?- Await pathology results. ? ___ nErico Tellez MD 03/16/2012 2:03 PM ? Number of Addenda: 0 Note Initiated On: 03/16/2012 1:15 PM PROVATION 03/16/2012 1:15 PM EDT L Karthik Barlow MD GENERAL SURGICAL ORD ERABLES Performing Organization Address City/State/[facility] Co de Phone Number PROVATION documented in this encounter Visit Diagnoses Diagnosis Ulcerative colitis- Primary Ulcerative colitis, unspecified documented in this encounter Care Teams Engineer Booster And Exhauster Relationship Specialty Start Date End Date Maximilian Fall MD [address] [place] [address] PCP - General 10/01/11 02/13/21 documented as of this encounter
--- OUTSIDE RECORDS SUMMARY | 2024-07-15 13:41 | XMS_ITS | Encounter Summary ---
Author Organization [facility] Address [facility] [place] [address] Care Team Providers Care Parent Trainer Name Role Phone Maximilian Fall MD Primary Care Provider [phone] Encounter Details Date Type Department Care Team (Late st Contact Info) Description 03/02/2012 Orders [place] [phone] Dion Barlow MD [facility] [place] [address] Exam for clinical research (Primary Dx) Social [...] 9:00 AM EDT Office [place] [phone] Dion Barlow MD [facility] [place] [address] 09/01/2024 9:40 AM EDT Office Visit Cardiology at [address] [place] [address] Franky Shaver MD [facility] [place] [address] 09/01/2024 11:20 AM EDT Office Visit Dermatology at [facility] [address] [place] [address] Gómez Mercer MD [facility] DR [place] [address] 09/21/2024 2:45 PM EDT Office Visit Pain and Spine Center at [facility] [place] [phone] Trung Hoyos MD [facility] [place] [address] documented as of this encounter Results * [...] trial documented in this encounter Care Teams Parent Trainer Relationship Specialty Start Date End Date Maximilian Fall MD [address] [place] [address] PCP - General 10/01/11 02/13/21 documented as of this encounter
--- OUTSIDE RECORDS SUMMARY | 2024-07-15 13:41 | XMS_ITS | Encounter Summary ---
Author Organization [facility] Address [facility] [place] [address] Care Team Providers Care Industrial Hire Sales Assistant Name Role Phone More Naylor MD Primary Care Provider [phone] Reason for Visit * Reason Comments GI Problem Encounter Details Date Type Department Care Team (Late st Contact Info) Description 10/01/2011 9:30 AM EST Office [place] [address] Dion Barlow MD [facility] [place] [address] Ulcerative colitis (Primary Dx) Discharge Disposition: Home [...] 1. Stool studies to be done at [facility] - will give instructions [...] ??? Ulcerative colitis Colonoscopy 04/08/10 (Dr. Gomes [facility]) - inflammation only within [...] has three kids. 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 He quit smoking in 1991 after 30 [...] adenopathy and no thyromegaly. HEENT: PERRL, EOMI, TOOL ENGINEER and OP clear without ulceration or lesions. [...] 1. Stool studies to be done at [facility] - will give instructions, [...] questions 50 minutes of this 60 minute [id number] encounter were spent counseling the patient in the issuesoutlined above. Davina Barlow MD Inspector Typedope sprayer Section of Gastroenterology [place] [address] [email or web address] CC: MORE NAYLOR MD [address] [facility] [address] documented in this encounter Plan of Treatment Upcoming Encounters Date Type Department Care Team (Late st Contact Info) Description 08/15/2024 9:00 AM EDT Office [place] [address] Dion Barlow MD [facility] [place] [address] 09/01/2024 9:40 AM EDT Office Visit Cardiology at [address] [phone] Franky Shaver MD [facility] [place] [address] 09/01/2024 11:20 AM EDT Office Visit Dermatology at [address] [place] [address] Gómez Mercer MD [facility] DR EDDIE [place] [address] 09/21/2024 2:45 PM EDT Office Visit Pain and Spine Center at [facility] [place] [phone] Trung Hoyos MD [facility] [place] [address] documented as of this encounter Visit Diagnoses Diagnosis Ulcerative colitis- Primary Ulcerative colitis, unspecified documented in this encounter Care Teams Industrial Hire Sales Assistant Relationship Specialty Start Date End Date More Naylor MD [address] [place] [address] PCP - General 10/01/11 02/13/21 documented as of this encounter
--- OUTSIDE RECORDS SUMMARY | 2024-07-15 13:41 | XMS_ITS | Encounter Summary ---
Author Organization [facility] Address [facility] [place] [address] Care Team Providers Care Winderman Name Role Phone Maximilian Fall MD Primary Care Provider [phone] Encounter Details Date Type Department Care Team (Late st Contact Info) Description 03/16/2012 2:30 PM EDT - 03/16/2012 3:30 PM EDT Surgery [place] [address] Enrico Tellez MD [facility] DR [place] [address] FLEXIBLE SIGMOIDOSCOPY (WRVU 0.84) Social History Tobacco [...] please contact your M. D. Please call [phone] BEFORE 5PM with any questions or concerns, AFTER 5PM call [phone] andask to speak to the Credit Consultant warehouse distribution associate. * Patient Instructions* Enrico Tellez MD - 03/16/2012 1:27 PM EDT Please see Recommendations in the Provation procedure report which is documented in the procedural note in E-DH. * Attachments The following attachments cannot be sent through Care Everywhere. * SIGMOIDOSCOPY: WHAT TO EXPECT AT HOME (ALBANIAN) documented [...] 9:00 AM EDT Office Visit [place] [address] Dion Barlow MD [facility] [place] [address] 09/01/2024 9:40 AM EDT Office Visit Cardiology at [address] [place] [address] Franky Shaver MD [facility] [place] [address] 09/01/2024 11:20 AM EDT Office Visit Dermatology at [place] [address] [place] [address] Gómez Mercer MD [facility] SANC[facility] [address] 09/21/2024 2:45 PM EDT Office Visit Pain [place] [address] Trung Hoyos MD [facility] [place] [address] documented as of this encounter Procedures Procedure Name Priority Date/Time Associated Diagnosis Comments SURGICAL PATHOLOGY REPORT Routine 03/16/2012 4:52 PM EDT SPECIMEN TO PATHOLOGY Routine 03/16/2012 2:09 PM EDT FLEXIBLE SIGMOIDOSCOPY (WRVU 0.84) 03/16/2012 1:27 PM EDT study patient POCT GLUCOSE Routine 03/16/2012 1:16 PM EDT documented in this encounter Results * SURGICAL PATHOLOGY REPORT (03/16/2012 4:52 PM EDT) Surgical Pathology Report ? [facility] ? Provider: ?? ENRICO TELLEZ ?Pt. Name: ?? NAYA RODRIGUEZ ? Acc #: ?[id number] ?Pt. ? Col Date: ?? 03/16/2012 ? [...] MD PATHOLOGY/CYTOLOGY O CEE Performing Organization Address [facility] de Phone Number DURGA FREDERICK * Specimen to Pathology (surgical or derm) (03/16/2012 2:09 PM EDT) AP Specimen 03/16/2012 2:09 PM EDT 03/16/2012 2:09 PM EDT Narrative DURGA TIAGOTADEOIUM - 03/16/2012 2:09 PM EDT Specimen requisition ordered. ??Separate Pathology report to follow Enrico Tellez MD PATHOLOGY/CYTOLOGY O CEE Performing Organization Address [facility] de Phone Number DURGA FREDERICK [...] Performing Organization Address [facility] de Phone Number DURGA FREDERICK [...] [phone] (Given - Provid er: April A [place], RN)[phone] (Given - Provider: April Archibald RN)134 (Given - Provider: April Archibald RN) documented in this encounter Care Teams Winderman Relationship Specialty Start Date End Date Maximilian Fall MD [address] [place] [address] PCP - General 10/01/11 02/13/21 documented as of this encounter
--- OUTSIDE RECORDS SUMMARY | 2024-07-15 13:41 | XMS_ITS | Encounter Summary ---
Author Organization [facility] Address [facility] [place] [address] Care Team Providers Care Cement Gun Operator Name Role Phone More Naylor MD Primary Care Provider [phone] Reason for Visit * Reason Comments Follow-up Encounter Details Date Type Department Care Team (Late st Contact Info) Description 11/05/2011 2:00 PM EST Follow-[place] [address] Dion Barlow MD [facility] [place] [address] Ulcerative colitis (Primary Dx) Discharge Disposition: Home [...] the preparation at this time. Please call [phone] to let us know that you cannot [...] time. ?? Please plan to be at [facility] for about 3 hours; please see your letter for estimated procedure and discharge times. If you have read the information thoroughly, and still have questions about what you have read, please call [phone] between the hours of 7:00am - 7:00pm, Thursday - Thursday and a nurse will assist you. If you have an urgent matter after hours, please call [phone], and ask to speak to the Gastroenterology Fellow construction field engineer. If you need to reschedule your colonoscopy, please call [phone]. We do have a high volume of [...] information packet from Gastroenterology and Hepatology and [facility]: ?? Please read ALL information in your information packet. ?? If you have read the information thoroughly, and still have questions about what you have read, please call [phone] between the hours of 7:00am - 7:00pm Thursday - Thursday, and a nurse will assist you. ?? If you have an urgent matter after hours, please call [phone], and ask to speak to the Gastroenterology Fellow construction field engineer. ?? If you need to reschedule your colonoscopy, please call [phone]. We do have a high volume of patients for this exam, so please give a least 72 hours notice for routine rescheduling. MEDICATION INFORMATION ?? Please call your prescribing physician to see if it is safe for you to lessen the dose or stop your medication prior to this procedure. Please note: If you cannot safely stop these medications, please call [phone]. The prescribing physician can give you instructions [...] (2 hours before your procedure) [facility] () ?? You will need to arrive ONE HOUR before your procedure time, to help you prepare for your procedure; please see your letter for exact arrival time. ?? Please plan to be at [facility] for about 3 hours; please see [...] forms of transportation like cabs or buses. [email or web address] 1 FREQUENTLY ASKED QUESTIONS ABOUT YOUR [...] one do I follow? A: Please follow [facility] Gastroenterology instructions, NOT the instructions from the [...] you continue to have problems, please call [phone] during office hours at 7am - 5pm.After hours please call [phone], and ask for the Gastroenterology Fellow construction field engineer. Q: Do I REALLY need to drink [...] have a deep chest cough, please call [phone] to see if you need to reschedule your appointment. Q: I am having my menstrual period. Should I reschedule my colonoscopy appointment? A: No. Your menstrual period will not interfere with your physician's ability to complete your procedure. [facility] FAQ 07/12/2009 Brian Rodriguez [address] [facility] [address] Thank you for choosing [facility] for your medical needs. You are scheduledfor a colonoscopy on at the Endoscopy Center at [facility] Activities Director 4T (Level 4). Below you will [...] about what you have read, please call [phone] between the hours of 7:00am - 7:00pm Thursday - Thursday, and ask to speak to the Gastroenterology Fellow construction field engineer. If you need to reschedule your procedure please call: [phone]. Thank you for choosing [facility]. Sincerely, The Gastroenterology and Hepatology Team and the Endoscopy Center at [facility] documented in this encounter Progress Notes * Dion Barlow MD - 11/05/2011 2:31 PM EST Patient Active Problem List Diagnoses ??? Ulcerative colitis [556.9J] Colonoscopy 04/08/10 (Dr. Gomes [facility]) - inflammation only within the [...] 4. Arrange for colonoscopy. Davina Barlow MD [employer] Makert[employer] registered nurse Section of Gastroenterology [place] [address] CC: MORE NAYLOR MD [address] [place] [address] documented in this encounter Plan of Treatment Upcoming Encounters Date Type Department Care Team (Late st Contact Info) Description 08/15/2024 9:00 AM EDT Office [place] [address] Dion Barlow MD [facility] [place] [address] 09/01/2024 9:40 AM EDT Office Visit Cardiology at [address] [address] Franky Shaver MD [facility] [place] [address] 09/01/2024 11:20 AM EDT Office Visit Dermatology at [facility] [address] [place] [address] Gómez Mercer MD [facility] DR [place] [address] 09/21/2024 2:45 PM EDT Office Visit Pain and Spine Center at [facility] [place] [address] Trung Hoyos MD [facility] [place] [address] documented as of this encounter Procedures Procedure [...] MD HEMATOLOGY ORDERABLE S Performing Organization Address [facility] Co de Phone Number [facility] * TPMT Enzyme (11/05/2011 3:15 PM EST) Pathologist [facility] TPMT Enzyme See Note [facility] Comment: Normal Activity Please see scanned report in Chart Review under the Non-DH Laboratory Heading. Test performed by [employer], [address] [place] [address] Blood specimen (specimen) 11/05/2011 3:15 PM EST 11/05/2011 3:45 PM EST Dion Barlow MD CHEMISTRY ORDERABLES Performing Organization Address [facility] Co de Phone Number [facility] * High Sensitivity CRP (11/05/2011 3:15 PM EST) C-Reactive Protein High Sensitivity 2.3 mg/L [facility] Comment: Interpretations: 1) For cardiac risk [...] Barlow MD CHEMISTRY ORDERABLES Performing Organization Address [facility] de Phone Number [employer] * Sedimentation rate (11/05/2011 3:15 PM EST) [facility] Signature Sedimentation Rate Automated 13 0 - 15 mm/hr DURGA FREDERICK Blood specimen (specimen) 11/05/2011 3:15 PM EST 11/05/2011 3:22 PM EST L Karthik Barlow MD HEMATOLOGY ORDERABLE S Performing Organization Address [facility] de Phone Number CERGIOVANNI MILLENNI[facility] * CMP w/fasting Glucose (11/05/2011 3:15 PM EST) [facility] Glucose Fasting 97 65 - 99 [...] of Diabetes Mellitus, Position Statement from the [place] [employer]. ??Diabetes Care, Volume 33, Supplement [...] MD HEMATOLOGY ORDERABLE S Performing Organization Address City/State/[facility] Co de Phone Number DURGA FREDERICK documented in this encounter Visit Diagnoses Diagnosis Ulcerative colitis- Primary Ulcerative colitis, unspecified documented in this encounter Care Teams Cement Gun Operator Relationship Specialty Start Date End Date More Naylor MD [address] [place] [address] PCP - General 10/01/11 02/13/21 documented as of this encounter
--- OUTSIDE RECORDS SUMMARY | 2024-07-15 13:41 | XMS_ITS | Encounter Summary ---
Author Organization [facility] Address [facility] [place] [address] Care Team Providers Care Dry Starch Supervisor Name Role Phone Maximilian Fall MD Primary Care Provider [phone] Encounter Details Date Type Department Care Team (Late st Contact Info) Description 03/02/2012 External Results [place] [address] Dion Barlow MD [facility] [place] [address] Social History Tobacco Use Types Packs/Day Years [...] Office Visit [place] [address] Dion Barlow MD [facility] [place] [address] 09/01/2024 9:40 AM EDT Office Visit Cardiology at [address] [place] [address] Franky Shaver MD [facility] [place] [address] 09/01/2024 11:20 AM EDT Office Visit Dermatology at [facility] [address] [place] [address] Gómez Mercer MD [facility] DR EDDIE [place] [address] 09/21/2024 2:45 PM EDT Office Visit Pain and Spine Center at [facility] [place] [address] Trung Hoyos MD [facility] [place] [address] documented as of this encounter Procedures Procedure Name Priority Date/Time Associated Diagnosis Comments EXTERNAL LAB RESULTS Routine 03/02/2012 documented in this encounter Results * External Lab Results (03/02/2012) Blood specimen (specimen) 03/02/2012 L Karthik Barlow MD CHEMISTRY ORDERABLES documented in this encounter Visit Diagnoses Not on filedocumented in this encounter Care Teams Dry Starch Supervisor Relationship Specialty Start Date End Date Maximilian Fall MD [facility] [address] [facility] [address] [place] [address] PCP - General 10/01/11 02/13/21 documented as of this encounter
--- OUTSIDE RECORDS SUMMARY | 2024-07-15 13:41 | XMS_ITS | Encounter Summary ---
Author Organization [facility] Address [facility] [place] [address] Care Team Providers Care Mounter Brass Wind Instruments Name Role Phone Maximilian Fall MD Primary Care Provider [phone] Reason for Visit * Reason Comments Research Merit UC screening v isit Encounter Details Date Type Department Care Team (Late st Contact Info) Description 03/02/2012 7:30 AM EDT Office [place] [address] Mica Gore, [facility] [place] [address] Ulcerative colitis (Primary Dx) Social History Tobacco [...] 9:00 AM EDT Office [place] [address] [facility] [place] [address] 09/01/2024 9:40 AM EDT Office Visit Cardiology at [address] [place] [address] Franky Shaver MD [facility] [place] [address] 09/01/2024 11:20 AM EDT Office Visit Dermatology at [facility] [address] [place] [address] [address] Mercer [address] [facility] DR EDDIE [place] [address] 09/21/2024 2:45 PM EDT Office Visit [place] [address] [facility] [place] [address] documented as of this encounter Visit Diagnoses Diagnosis Ulcerative colitis- Primary Ulcerative colitis, unspecified documented in this encounter Care Teams Mounter Brass Wind Instruments Relationship Specialty Start Date End Date Maximilian Fall MD [address] [place] [address] PCP - General 10/01/11 02/13/21 documented as of this encounter
--- OUTSIDE RECORDS SUMMARY | 2024-07-18 14:25 | XMS_ITS | Clinical Summary ---
Author Organization [facility] Address [address] [place] [address] Care Team Providers Care Rn Review Name Role Phone Maximilian Fall MD Primary Care Provider [phone] Encounters Date Type Department Care Team Description 06/29/2024 18:51 EDT - 06/29/2024 23:59 EDT Hospital Encounter [facility] Secondary Reads [place] Discharge Disposition: Home [...] DERABLES from Last 3 Months Care Teams Rn Review Relationship Specialty Start Date End Date Maximilian Fall MD PCP - General 03/18/16
--- OUTSIDE RECORDS SUMMARY | 2024-07-18 14:25 | XMS_ITS | Encounter Summary ---
Author Organization [facility] Address [address] [place] [address] Care Team Providers Care Transit Bus Operator Name Role Phone Unavailable Primary Care Provider Unavailabl e Encounter Details Date Type Department Care Team (Late st Contact Info) Description 12/05/2009 Orders Only [facility] Laboratory Services - [facility] ([facility]) [address] [place], [place] [address] [place] [address] [place] [address] Social History Tobacco Use Types Packs/Day [...] ? RODRIGUEZ, BRIAN ? Accession #: ? [id number] ? : ? 1950 (Age: 59) ??M [...] ?? lesions suggestive of a neoplastic focus. ??Stage Rigger sections are submitted in (A1) and (A2). (Davina Ordoñez)/mpl ? End of Report ? JOSEPHINE ESCOTO 12/05/2009 12/06/2009 8:4 7 EST Jennifer Saenz MD PATHOLOGY ORDERABLES [facility] [address] [place] [address] documented in this encounter Visit Diagnoses Not on filedocumented in this encounter
--- OUTSIDE RECORDS SUMMARY | 2024-07-18 14:25 | XMS_ITS | Encounter Summary ---
Author Organization [facility] Address [address] [place] [address] Care Team Providers Care Fuel Cell Assembler Name Role Phone Maximilian Fall MD Primary Care Provider [phone] Encounter Details Date Type Department Care Team (Late st Contact Info) Description 02/17/2023 Lab Requisition [facility] Pathology & Laboratory Medicine - [address] [address] Outr Resulting Lab, Provider Social History Tobacco [...] Salmonella PCR Negative Negative 02/18/2023 11:[address] [facility] Shigella/Enteroin vasive E. coli Negative Negative 02/18/2023 11:[address] [facility] LAB CAMPYLOBACTER PCR Negative Negative 02/18/2023 11:[address] [facility] Shiga Toxin PCR Negative Negative 03/29/202 3 11:[address] [facility] Feces SPECIMEN FROM RECTUM / Unknown 02/17/2023 7:00 EDT 02/17/2023 22:14 EDT Provider Outr Resulting Lab MICROBIOLOGY - GENERAL ORDERABLES Performing Organization Address City/State/[facility] Co de Phone Number [facility] [address] [place] [address] documented in this encounter Visit Diagnoses Not on filedocumented in this encounter Care Teams Fuel Cell Assembler Relationship Specialty Start Date End Date Maximilian Fall MD PCP - General 03/18/16 documented as of this encounter
--- OUTSIDE RECORDS SUMMARY | 2024-07-18 14:25 | XMS_ITS | Encounter Summary ---
Author Organization [facility] Address [address] [place] [address] Care Team Providers Care Product Picker Name Role Phone Maximilian Fall MD Primary Care Provider [phone] Reason for Referral * (Routine/Next Available) - Receiving Office to Obtain Authorization Specialty Diagnoses / Procedures Referred By Contac t Referred To Contact Procedures XR OUTSIDE IMAGES CHEST Unknown, ProviderMD Referral ID Status Reason Start Date Expiration Date Visits Requested Visits Authorized [id number] Receiving Office to Obtain Authorization 06/29/2024 1 1 Reason for Visit * (Routine/Next Available) - Receiving Office to Obtain Authorization Specialty Diagnoses / Procedures Referred By Contac t Referred To Contact Procedures XR OUTSIDE IMAGES CHEST Unknown, MD [place] Referral ID Status Reason Start Date Expiration Date Visits Requested Visits Authorized [id number] Receiving Office to Obtain Authorization 06/29/2024 1 1 Encounter Details Date Type Department Care Team (Latest Contact Info) Description 06/29/2024 18:51 EDT - 06/29/2024 23:59 EDT Hospital Encounter [facility] Secondary Reads [place] Discharge Disposition: [...] on filedocumented in this encounter Care Teams Product Picker Relationship Specialty Start Date End Date Maximilian Fall MD PCP - General 03/18/16 documented as of this encounter
--- OUTSIDE RECORDS SUMMARY | 2024-07-18 14:25 | XMS_ITS | Encounter Summary ---
Author Organization [facility] Address [address] [place] [address] Care Team Providers Care Ammonium Sulfate Operator Name Role Phone Maximilian Fall MD Primary Care Provider [phone] Encounter Details Date Type Department Care Team (Late st Contact Info) Description 07/09/2021 Lab Requisition [facility] Pathology & Laboratory Medicine - [address] [address] Outr Resulting Lab, Provider Social History Tobacco [...] Outr Resulting Lab MICROBIOLOGY - GENERAL ORDERABLES [facility] [address] [place] [address] * COVID-19 TESTING (07/08/2021 16:45 EDT) COVID-19 rt-PCR Result Negative Negative 07/10/2021 13:51 EDT [facility] Comment: This test has [...] developed and its performance characteristics determined by [facility]. It has not been cleared [...] is based on the [facility] COVID-19 Emergency Use Authorization (EUA) assay, with minor modification as defined by the FDA Performed on the Data Symmetryo 7 Pro RT-PCR System. Performing Lab [facility] Lab 07/10/2021 13:51 EDT [facility] Swab 07/08/2021 16:4 5 EDT 07/09/2021 15:41 EDT Provider Outr Resulting Lab MICROBIOLOGY - GENERAL ORDERABLES Performing Organization Address City/[facility] Co de Phone Number [facility] [address] [place] [address] documented in this encounter Visit Diagnoses Not on filedocumented in this encounter Care Teams Ammonium Sulfate Operator Relationship Specialty Start Date End Date Maximilian Fall MD PCP - General 03/18/16 documented as of this encounter
--- OUTSIDE RECORDS SUMMARY | 2024-07-18 14:25 | XMS_ITS | Clinical Summary ---
Author Organization [facility] Address [facility] [place] [address] Care Team Providers Care Plaster Whittler Name Role Phone Deacon Watters APRN Primary Care Provider [phone] Allergies Active Allergy Reactions Criticality Noted Date [...] 10/01/2011 Overview (12/06/2023): Colonoscopy 04/08/10 (Dr. Gomes [facility]) - inflammation only within the rectum and sigmoid; extent of the exam was to the hepatic flexure; biopsies proximal to the sigmoid nl Repeat exam 11/27/11 ([facility]): mildly active colitis in the [...] ascending colon. Several HPs and one TA. [place] 03/2022 - [place] 1 limited to rectosigmoid, diverticulosis. No dysplasia TREATMENT: cortenemas, Asacol, Rowasa, prednisone, and imodium Diabetes mellitus 10/01/2011 Hearing loss 10/01/2011 GERD (gastroesophageal reflux disease) 1 Hydrocele 10/01/2011 Asthma 10/01/2011 Encounters Date Type Department Care Team Description 07/05/2024 Abstract Cardiology at [address] [address] Lesa Duncan, RN 07/05/2024 Telephone Cardiology at [address] [address] Lesa Duncan, garment manufacturer; Coronary Artery Disease 07/01/2024 2:30 PM EDT - 07/01/2024 3:30 PM EDT Surgery Director [place] [address] Lizzette Hayden MD CARDIAC CATHETERIZATION 07/01/2024 Refill [place] [address] Dion Barlow MD 06/30/2024 3:44 PM EDT - 07/04/2024 3:25 PM EDT Hospital Encounter Heart and Vascular Unit Level 3 [place] [phone] Triston Godinez MD Welch, Terrence D, MD NSTEMI (non-ST elevated myocardial infarction) (Primary Dx) Discharge Disposition: Home 06/29/2024 7:25 PM EDT Ancillary Procedure [place] [phone] Deacon Watters, BIG DATA ANALYTICS LEAD 06/29/2024 [place] [address] Ramakrishna Elliott MD 06/29/2024 [place] [address] 06/22/2024 8:00 AM EDT Office Visit [facility] [place] [address] Trung Hoyos MD Radiculopathy of cervical region (Primary Dx) 06/22/2024 Travel 06/09/2024 Telephone [place] [address] Marcelle Weinberg, JAZMINE 06/07/2024 1:20 PM EDT Office Visit Dermatology at [address] [address] Gómez Mercer MD Tinea cruris 06/07/2024 12:55 PM EDT - 06/07/2024 11:59 PM EDT [place] [address] Left sided colitis without complications Discharge Disposition: Home 06/06/2024 12:56 PM EDT - 06/06/2024 11:59 PM EDT [place] [address] Left sided colitis without complications Discharge Disposition: Home 06/06/2024 8:00 AM EDT Office [place] [address] Marcelle Weinberg, BIG DATA ANALYTICS LEAD Left sided colitis without complications 06/06/2024 Telephone [place] [address] Marcelle Weinberg, JAZMINE 06/06/2024 Travel from Last 3 Months Social History Tobacco Use Types Packs/Day Years Used Date Smoking Tobacco: Former Cigarettes 4 30 1 12/01/1961 - 10/01/1992 Smokeless Tobacco: Former Chew Comments:Denies vaping Alcohol Use Standard Drinks/Week Comments Yes 0 (1 standard drink = 0.6 oz pur e alcohol) twice a year [facility] Utilities Answer Date Recorded In the [...] any time in the past 12 m [facility], were you homeless or living [...] AM EDT Office [place] [phone] Dion Barlow MD [facility] [place] [address] 09/01/2024 9:40 AM EDT Office Visit Cardiology at [address] [address] Franky Shaver MD [facility] [place] [address] 09/01/2024 11:20 AM EDT Office Visit Dermatology at [facility] [address] [place] [phone] Gómez Mercer MD [facility] DR EDDIE [place] [address] 09/21/2024 2:45 PM EDT Office Visit [facility] [place] [phone] Trung Hoyos MD [facility] [place] [address] Health Maintenance Due Date Last Done Comments [...] PM EDT URINALYSIS BEAKER MICROSCPIC REFLEX EXAM ([facility]) Routine 07/03/2024 3:02 PM EDT URINALYSIS [...] the time period is included. Pathologist [facility] Glucometer, POC 274(H) 65 - 199 mg/dL 07/04/2024 2:12 PM EDT [facility] Comment:Supplemental ranges: <140 mg/dL before meals <180 mg/dL all other times of the day. Blood CAPILLARY BLOOD / Unknown 07/04/2024 1:49 PM EDT 07/04/2024 2:12 PM EDT Armond Denny MD POINT OF CARE TEST O RDERABLES [facility] [place] [address] * Scan Doc: Telemetry Strips (07/04/2024 7:32 AM EDT) Only the most recent of18 resultswithin the time period is included. Narrative 07/04/2024 7:32 AM EDT Ordered by an unspecified provider. Scanning Provider MEDIA MGR SCAN EXT O RDR/RSLT * (ABNORMAL) CBC (with Diff) (07/04/2024 1:43 AM EDT) Only the most recent of5 resultswithin the time period is included. [facility] White Blood Cell 5.05 4.00 - 9.50 x10(3)/mc L 07/04/2024 2:00 AM EDT [facility] Red Blood Cell 3.11(L) 4.58 - 5.54 x10(6)/mc L 07/04/2024 2:00 AM EDT [facility] Hemoglobin 10.5(L) 13.7 - 16.5 g/dL 07/04/2024 2:00 AM EDT [facility] Hematocrit 31.5(L) 40.5 - 48.5 % 07/04/2024 2:00 AM EDT [facility] Mean Cell Volume 101.3(H) 82.9 - 93.1 fL 07/04/2024 2:00 AM EDT [facility] Mean Cell Hemoglobin 33.8(H) 27.5 - 32.1 pg 07/04/2024 2:00 AM [facility] Mean Cell Hemoglobin Concentration 33.3 32.0 - 35.7 g/dL 07/04/2024 2:00 AM [facility] Platelet 145 145 - 357 x10(3)/mc L 07/04/2024 2:00 AM [facility] Mean Platelet Volume 11.5 7.6 - 12.9 fL 07/04/2024 2:00 AM [facility] RDW Standard Deviation 48.2(H) 36.0 - 45.0 fL 07/04/2024 2:00 AM [facility] RDW coefficient of variation 13.1 11.4 - 13.8 % 07/04/2024 2:00 AM [facility] NRBC% auto 0.0 % 07/04/2024 2:00 AM [facility] NRBC Absolute 0.00 0.00 - 0.00 x10(3)/mc L 07/04/2024 2:00 AM [facility] Neutrophil % 65.9 % 07/04/2024 2:00 AM [facility] Neutrophil Absolute 3.33 1.70 - 6.10 x10(3)/mc L 07/04/2024 2:00 AM [facility] Lymph % 20.8 % 07/04/2024 2:00 AM [facility] Lymph Absolute 1.05 0.90 - 3.20 x10(3)/mc L 07/04/2024 2:00 AM [facility] Monocyte % 9.3 % 07/04/2024 2:00 AM [facility] Monocyte Absolute 0.47 0.30 - 0.90 x10(3)/mc L 07/04/2024 2:00 AM [facility] Eos % 3.0 % 07/04/2024 2:00 AM [facility] Eos Absolute 0.15 0.00 - 0.40 x10(3)/mc L 07/04/2024 2:00 AM EDT [facility] Basophil % 0.6 % 07/04/2024 2:00 AM EDT [facility] Baso Absolute 0.03 0.00 - 0.10 x10(3)/mc L 07/04/2024 2:00 AM EDT [facility] Immature Gran % 0.4 % 2:00 AM EDT [facility] Immature Gran Absolute 0.02 0.00 - 0.04 x10(3)/mc L 07/04/2024 2:00 AM EDT [facility] Blood VENOUS BLOOD SPECIMEN / Unknown IP Care Team Draw / Unknown 07/04/2024 1:43 AM EDT 07/04/2024 1:52 AM EDT Triston Godinez MD HEMATOLOGY ORDERABLE S [facility] [place] [address] * Magnesium (07/04/2024 1:43 AM EDT) Only the most recent of4 resultswithin the time period is included. Magnesium 0.80 0.69 - 1.07 mMol/L 07/04/2024 2:23 AM EDT [facility] Blood VENOUS BLOOD SPECIMEN / Unknown IP Care Team Draw / Unknown 07/04/2024 1:43 AM EDT 07/04/2024 1:52 AM EDT Triston Godinez MD CHEMISTRY ORDERABLES Performing Organization Address City/[facility]/ZIP Co de Phone Number [facility] [place] [address] * (ABNORMAL) Basic Metabolic Panel (07/04/2024 1:43 AM EDT) Only the most recent of5 resultswithin the time period is included. Glucose 156 65 - 199 mg/dL 07/04/2024 2:23 AM [facility] Comment:Glucose Concentratio n >=200 mg/dL plus symptoms is consistent with Diabetes Mellitus. Blood Urea Nitrogen 12 10 - 20 mg/dL 07/04/2024 2:23 AM [facility] Creatinine 1.27 0.80 - 1.50 mg/dL 07/04/2024 2:23 AM [facility] Sodium 141 135 - 145 mMol/L 07/04/2024 2:23 AM [facility] Potassium 3.9 3.5 - 5.0 mMol/L 07/04/2024 2:23 AM [facility] Chloride 108(H) 98 - 107 mMol/L 07/04/2024 2:23 AM [facility] Carbon Dioxide 22 22 - 31 mMol/L 07/04/2024 2:23 AM [facility] Anion Gap 11 5 - 15 mMol/L 07/04/2024 2:23 AM [facility] Calcium 9.4 8.5 - 10.5 mg/dL 07/04/2024 2:23 AM [facility] Est Glomerular Filtration Rate - Male 59 mL/min/1. 73 m?? 07/04/2024 2:23 AM [facility] Comment: This patient's estimated [...] Godinez MD CHEMISTRY ORDERABLES Performing Organization Address [facility] Co de Phone Number [facility] [place] [address] * (ABNORMAL) Urinalysis Microscopic Reflex to Culture (07/03/2024 3:02 PM EDT) RBC, Urine 2 0 - 3 /HPF 07/03/2024 3:40 PM EDT [facility] WBC, Urine 55(H) 0 - 3 /HPF 07/03/2024 3:40 PM EDT [facility] Squamous Epithelial Cells, Urine 1 0 - 5 /HPF 07/03/2024 3:40 PM EDT [facility] Hyaline Casts, Urine 3(H) 0 - 2 /LPF 07/03/2024 3:40 PM EDT [facility] Comment 07/03/2024 3:40 PM EDT [facility] Comment:Interpret results wi th caution, microscopic results are from a suboptimal specimen. Bacteria, Urine Many(A) None /HPF 3:40 PM EDT [facility] Urine URINE SPECIMEN OBTAINED BY CLEAN CATCH PROCEDURE / Unknown Non Blood Collection / Unknown 07/03/2024 3:02 PM EDT 07/03/2024 3:13 PM EDT Armond Denny MD URINE ORDERABLES Performing Organization Address [facility] Co de Phone Number [facility] [place] [address] * Urinalysis Microscopic with Reflex to Culture (07/03/2024 3:02 PM EDT) Urine URINE SPECIMEN OBTAINED BY CLEAN CATCH PROCEDURE / Unknown Non Blood Collection / Unknown 07/03/2024 3:02 PM EDT 07/03/2024 3:13 PM EDT Armond Denny MD URINE ORDERABLES [facility] [place] [address] * (ABNORMAL) Urinalysis with reflex Culture (07/03/2024 3:02 PM EDT) Glucose, Urine Dipstick Negative Negative 07/03/2024 3:40 PM EDT [facility] Protein, Urine Dipstick 30 mg/dL(A) Negative 07/03/2024 3:40 PM EDT [facility] Bilirubin, Urine Dipstick Small(A) Negative 07/03/2024 3:40 PM EDT [facility] Comment:Clinical correlation required for positive Urine Bilirubin results as false positive may occur with some drugs and drug related products. If a false positive is suspected a serum total bilirubin should be considered if clinically indicated. Urobilinogen, Urine Dipstick Normal Normal, 0.2 mg/dL, 1.0 mg/dL 07/03/2024 3:40 PM EDT [facility] pH, Urine (dipstick) 5.5 5.0 - 8.0 07/03/2024 3:40 PM EDT [facility] Blood, Urine Dipstick Negative Negative 07/03/2024 3:40 PM EDT [facility] Ketone, Urine Dipstick Trace(A) Negative 07/03/2024 3:40 PM EDT [facility] Nitrite, Urine Dipstick Positive(A) Negative 07/03/2024 3:40 PM EDT [facility] Leukocytes, Urine Dipstick Moderate(A) Negative 07/03/2024 3:40 PM EDT [facility] Specific [place] Urine Automated 1.024 1.005 - 1.030 07/03/2024 3:40 PM EDT [facility] Appearance, Urine Dipstick Cloudy(A) Clear 07/03/2024 3:40 PM EDT [facility] Color, Urine Dipstick Dark Yellow Yellow, Dark Yellow 07/03/2024 3:40 PM EDT [facility] Urine URINE SPECIMEN OBTAINED BY CLEAN CATCH PROCEDURE / Unknown Non Blood Collection / Unknown 07/03/2024 3:02 PM EDT 07/03/2024 3:13 PM EDT Armond Denny MD URINE ORDERABLES [facility] [place] [address] * (ABNORMAL) Urine culture (07/03/2024 3:02 PM EDT) Urine Culture 50,000-99,000 cfu/ml Escherichia coli(A) VITEK 2 METHOD 07/05/2024 8:01 AM EDT [facility] Urine Culture 10,000-49,000 cfu/ml mixed mucosal harika VITEK 2 METHOD 07/05/2024 8:01 AM EDT [facility] Urine URINE SPECIMEN OBTAINED BY [...] Denny MD MICROBIOLOGY - GENER AL ORDERABLES [facility] [place] [address] * CT Abdomen & Pelvis w Contrast (07/02/2024 3:13 AM EDT) WORKSTATION ID [id number] RAD Anatomical Region Laterality Modality Abdomen, Pelvis [...] questions please contact the health health care marketing manager that requested your imaging first. ? Narrative [...] patients who have questions please contactthe health health care marketing manager that requested your imaging first. Electronically signed by: Gutierrez Hamilton MD, [facility]([phone]), at 07/02/2024 9:20 AM Triston Godinez MD [...] (Bezet) 473 ms MUSE SYSTEM Calculated P [place] 63 degrees MUSE SYSTEM Calculated R [place] 87 degrees MUSE SYSTEM Calculated T [place] 8 degrees MUSE SYSTEM INTERPRETATION Normal sinus [...] Modality Other Narrative 07/01/2024 7:47 PM EDT ?[facility] ? Cardiac Catheterization/Intervention Report ? Patient Name: Naya Rodriguez. ? Procedure Date: 07/01/2024 ? A #: [id number] ? Primary Physician: Mogadam, Emad ? Case #: [id number] ? File Name: [id number] ? Catheterization Order Number: [id number] ? [facility] ? Final Report [place], [place] ? Patient Name: ? Naya M. Rodriguez ?ID#: ?[id number] ? : ?1950 ? Procedure Date: ? [...] was Urgent. The indication for ?the laborer wharf visit is ACS less than or equal [...] ? A premounted 2.75 x 22 mm [place] (EILEEN) was deployed ? with a maximum [...] administered prior to arrival in the laborer wharf. ?Recommended anti-platelet/anti-thrombotic regimen: ?Continue aspirin 81 mg daily. ?Continue clopidogrel 75 mg daily. ?These recommendations are made at the time of the intervention. Patient ?and provider preferences or a changing clinical situation may require ?modification of this regimen. Consult [facility] Interventional Cardiology for ?questions. ?This patient has [...] against any medical treatment. Consult ?http://tools.acc.org/DAPTriskapp/#!/content/calculator/ or [facility] ?Interventional Cardiology for questions ? Conclusions: ?* [...] Procedure Note Lizzette Hayden MD - 07/14/2024 [facility] Cardiac Catheterization/Intervention Report Patient Name: Naya Rodriguez Procedure Date: 07/01/2024 A #: [id number] Primary Physician: Lizzette Hayden Case #: [id number] File Name: [id number] Catheterization Order Number: [id number] [facility] FinalReport [place], [place] Patient Name: Naya Rodriguez ID#:[id number] :1950 Procedure Date: July 01, 2024 Case [...] patient was designated as ASA Class III. [facility] clinical frailty scale is 4: Vulnerable. Diagnostic Tests: Medications Prior to Procedure: Aspirin, Angiotensin II Receptor Marci and Statin. Indications for Diagnostic Cath: The priority of the diagnostic procedure was Urgent. The indicationfor the laborer wharf visit is ACS less than or equal [...] time was 37.0 minutes, dose area product mes456.00 Gy/cm2 and air kerma was 1,874 mGY. [...] The lesion was predilated with a 2.50mm [id number] MM balloon with a maximum inflation pressure of 14atmospheres. A premounted 2.75 x 22 mm [place] (EILEEN) wasdeployed with a maximum inflation pressure [...] administered prior to arrival in the laborer wharf. Recommended anti-platelet/anti-thrombotic regimen: Continue aspirin 81 mg daily. Continue clopidogrel 75 mg daily. These recommendations are made at the time of the intervention.Patient and provider preferences or a changing clinical situation mayrequire modification of this regimen. Consult [facility] Interventional Cardiologyfor questions. This patient has a [...] or against any medical treatment.Consult http://tools.acc.org/DAPTriskapp/#!/content/calculator/ or [facility] Interventional Cardiology for questions Conclusions: * One [...] Heparin 0.31 IU/mL 07/01/2024 11:25 AM EDT [facility] Comment: Heparin (anti-Xa) levels should [...] EDT Triston Godinez MD HEMATOLOGY ORDERABLE S [facility] [place] [address] * (ABNORMAL) Hemogram (07/01/2024 10:32 AM EDT) Only the most recent of2 resultswithin the time period is included. White Blood Cell 7.02 4.00 - 9.50 x10(3)/mc L 07/01/2024 11:20 AM [facility] Red Blood Cell 3.68(L) 4.58 - 5.54 x10(6)/mc L 07/01/2024 11:20 AM [facility] Hemoglobin 12.2(L) 13.7 - 16.5 g/dL 07/01/2024 11:20 AM [facility] Hematocrit 36.5(L) 40.5 - 48.5 % 07/01/2024 11:20 AM [facility] Mean Cell Volume 99.2(H) 82.9 - 93.1 fL 07/01/2024 11:20 AM [facility] Mean Cell Hemoglobin 33.2(H) 27.5 - 32.1 pg 07/01/2024 11:20 AM [facility] Mean Cell Hemoglobin Concentration 33.4 32.0 - 35.7 g/dL 07/01/2024 11:20 AM [facility] Platelet 167 145 - 357 x10(3)/mc L 07/01/2024 11:20 AM EDT [facility] Mean Platelet Volume 11.4 7.6 - 12.9 fL 07/01/2024 11:20 AM EDT [facility] RDW Standard Deviation 46.5(H) 36.0 - 45.0 fL 07/01/2024 11:20 AM EDT [facility] RDW coefficient of variation 12.9 11.4 - 13.8 % 07/01/2024 11:20 AM EDT [facility] NRBC% auto 0.0 % 07/01/2024 11:20 AM [facility] NRBC Absolute 0.00 0.00 - 0.00 x10(3)/mc L 07/01/2024 11:20 AM EDT [facility] Blood VENOUS BLOOD SPECIMEN / Unknown IP Care Team Draw / Unknown 07/01/2024 10:32 AM EDT 07/01/2024 10:54 AM EDT Armond Denny MD HEMATOLOGY ORDERABLE S [facility] [place] [address] * (ABNORMAL) Troponin-T, Yuriy Sensitivity 3 Hour (06/30/2024 11:25 PM EDT) Troponin-T, High Sensitivity 1,274(H) <=22 ng/L 07/01/2024 12:14 AM EDT [facility] Comment: This patient's troponin T [...] can be found in the [facility] Test Catalog Troponin - https://one-.testcatalog.org/catalogs/565/files/96990 Reference: Fourth [place] Definition of Myocardial Infarction. Journal of the [place] [employer] 2018;72:0421-6308 Troponin-T, HS 3 hr delta 65 ng/L 07/01/2024 12:14 AM EDT [facility] Comment:The 3 hour Troponin T delta value is the absolute difference between the Troponin T concentrations of the initial and subsequent sample collected between 2 h: 45 min and 6 h following the initial collection Blood VENOUS BLOOD SPECIMEN / Unknown IP Care Team Draw / Unknown 06/30/2024 11:25 PM EDT 06/30/2024 11:47 PM EDT Triston Godinez MD CHEMISTRY ORDERABLES [facility] [place] [address] * (ABNORMAL) Troponin-T, High Sensitivity 1 Hour (06/30/2024 8:22 PM EDT) Pathologist [facility] Troponin-T, High Sensitivity 1,234(H) <=22 ng/L 06/30/2024 9:22 PM EDT [facility] Comment: This patient's troponin T [...] can be found in the [facility] Test Catalog Troponin - https://[email or web address].testcatalog.org/catalogs/565/files/89661 Reference: Fourth [place] Definition of Myocardial Infarction. Journal of the [employer] College [employer] Cardiology 2018;72:3449-5972 Troponin-T, HS 1 hr delta 06/30/2024 9:22 PM EDT [facility] Comment:Delta troponin value not calculated, sample collected outside of delta calculation time limit. Blood VENOUS BLOOD SPECIMEN / Unknown Venipuncture / Unknown 06/30/2024 8:22 PM EDT 06/30/2024 8:40 PM EDT Triston Godinez MD CHEMISTRY ORDERABLES [facility] [place] [address] * XR Abdomen Flat & Upright (06/30/2024 6:56 PM EDT) [employer] Signature WORKSTATION ID [id number] RAD Anatomical Region Laterality Modality Abdomen N/A Digital Radiogra phy Impressions 06/30/2024 9:12 PM EDT No obstruction or perforation. Thank you for letting us participate in the care of this patient. ??If you are a health care provider and have any questions regarding this report, please contact the number below. ??For patients who have questions please contact the health health care marketing manager that requested your imaging first. ? Electronically signed by: Shireen Hurtado MD, [facility] ([phone]), at 06/30/2024 9:12 PM Narrative 06/30/2024 9:12 [...] patients who have questions please contactthe health health care marketing manager that requested your imaging first. Electronically signed by: Shireen Hurtado MD, [facility]([phone]), at 06/30/2024 9:12 PM Triston Godinez MD IMG DX ORDERABLES * (ABNORMAL) Troponin-T, High Sensitivity (06/30/2024 6:09 PM EDT) [facility] Troponin-T, High Sensitivity Initial 1,209([facility] ) <=22 ng/L 06/30/2024 7:23 PM EDT [facility] Comment: This patient's troponin T [...] can be found in the [facility] Test Catalog Troponin - [email or web address] [email or web address].[email or web address]/catalogs/565/files/55641 Reference: Fourth [place] Definition of Myocardial Infarction. Journal of the [place] College of Cardiology 2018;72:2344-4207 Blood VENOUS BLOOD SPECIMEN / Unknown Venipuncture / Unknown 06/30/2024 6:09 PM EDT 06/30/2024 6:18 PM EDT Triston Godinez MD CHEMISTRY ORDERABLES Performing Organization Address City/[facility]/ZIP Co de Phone Number [facility] [place] [address] * TSH (06/30/2024 6:09 PM EDT) Thyroid Stimulating Hormone 2.80 0.27 - 4.20 mcIU/mL 06/30/2024 6:51 PM EDT [facility] Blood VENOUS BLOOD SPECIMEN / Unknown Venipuncture / Unknown 06/30/2024 6:09 PM EDT 06/30/2024 6:18 PM EDT Triston Godinez MD CHEMISTRY ORDERABLES [facility] [place] [address] * (ABNORMAL) pro-Brain Natriuretic Peptide (06/30/2024 6:09 PM EDT) NT-proBNP 2,259(H) <=449 pg/mL 06/30/2024 6:51 PM EDT [facility] Blood VENOUS BLOOD SPECIMEN / Unknown Venipuncture / Unknown 06/30/2024 6:09 PM EDT 06/30/2024 6:18 PM EDT Triston Godinez MD CHEMISTRY ORDERABLES [facility] [place] [address] * Lipid Panel (Reflex Direct LDL) (06/30/2024 6:09 PM EDT) Cholesterol, Total 197 mg/dL 06/30/2024 6:51 PM EDT [facility] Comment: Desirable: < 200 mg/dL Borderline High: 200 - 239 mg/dL High: > or = 240 mg/dL Triglyceride 230 mg/dL 06/30/2024 6:51 PM EDT [facility] Comment: Normal: <150 mg/dL Borderline High: 150-199 mg/dL High: 200-499 mg/dL Very High: > or =500 mg/dL HDL Cholesterol 36 mg/dL 6:51 PM EDT [facility] Comment:Males: High Risk: <4 0 mg/dL LDL Cholesterol 120 mg/dL 6:51 PM EDT [facility] Comment: Desirable: <100 mg/dL Above Desirable: 100-129 mg/dL Borderline High: 130-159 mg/dL High: 160-189 mg/dL Very High: > or =190 mg/dL Note: LDL calculation updated to the NIH LDL formula as of 06/26/2024 Non-HDL Cholesterol 161 mg/dL 06/30/2024 6:51 PM EDT [facility] Comment: Desirable: <130 mg/dL Above Desirable: 130-159 mg/dL Borderline High: 160-189 mg/dL High: 190-219 mg/dL Very High: > or = 220 mg/dL Blood VENOUS BLOOD SPECIMEN / Unknown Venipuncture / Unknown 06/30/2024 6:09 PM EDT 06/30/2024 6:18 PM EDT [facility] - 06/30/2024 6:51 PM EDT It [...] artery disease) Triston Godinez MD CHEMISTRY ORDERABLES [facility] [place] [address] * (ABNORMAL) Hemoglobin A1c (06/30/2024 6:08 PM EDT) [facility] Hemoglobin A1c 7.3(H) 4.3 - 5.6 % 06/30/2024 9:03 PM EDT [facility] Comment: Per ADA guidelines, without [...] red blood cell turnover may not be textile designs sales representative of glycemic control. Reference Interval: 4.3 - 5.6% 5.7 - 6.4%: Consistent with prediabetes >=6.5%: Consistent with diagnosis of diabetes mellitus Estimated Average Glucose 06/30/2024 9:03 PM EDT [facility] Comment:Not Calculated. Blood VENOUS BLOOD SPECIMEN / Unknown Venipuncture / Unknown 06/30/2024 6:08 PM EDT 06/30/2024 6:18 PM EDT Narrative [facility] - 06/30/2024 9:03 PM EDT Estimated average glucose (eAG) is calculated from the equation described in: John ELLISON, Inna J, Nic R, et al. ??Translating the A1C assay into estimated average glucose values. ??Diabetes Care 2008:31(8):8268-6607. Additional resources are available on the ADA website (diabetes.org). Triston Godinez MD CHEMISTRY ORDERABLES Performing Organization Address [facility]/State/ZIP Co de Phone Number [facility] [place] [address] * ECHO COMPLETE W CONTRAST (06/30/2024 5:22 [...] NSTEMI (non-ST elevation myocardial infarction) Exam Location: [facility]. ? Conclusions -Left ventricular systolic function is moderately reduced. The left ventricular ejection fraction is 36% by Dowd's biplane. The anterolateral and inferolateral barahona are akinetic. The anterior wall is hypokinetic. -Right ventricle is mildly dilated. Systolic function is normal. -No significant valve disease. -See report for additional findings. No prior study is available. Procedure Complete-[id number]. Image enhancement Optison was used for left [...] NSTEMI (non-ST elevation myocardial infarction) Exam Location: [facility]. Conclusions -Left ventricular systolic function is moderately reduced. The leftventricular ejection fraction is 36% by Dowd's biplane. The anterolateral andinferolateral barahona are akinetic. The anterior wall is hypokinetic. -Right ventricle is mildly dilated. Systolic function is normal. -No significant valve disease. -See report for additional findings. No prior study is available. Procedure Complete-[id number]. Image enhancement Optison was used for left [...] purpose is for storage only. Deacon Watters BIG DATA ANALYTICS LEAD IMG FILM LIBRARY O RDERABLES [place], [place] * External Cardiology Result (06/29/2024 4:33 PM EDT) Anatomical Region Laterality Modality Other Historical Provider EXTERNAL CARDIOLO GY RESULT * Campylobacter Antigen (06/07/2024 9:00 AM EDT) Campylobacter Ag Immunoassay Negative for Campylobacter Antigen [facility] Stool 06/07/2024 9:00 AM EDT 06/07/2024 1:32 PM EDT Narrative Resulting Agency Comment Spec In Lab Marcelle Weinberg BIG DATA ANALYTICS LEAD MICROBIOLOGY - GE NERAL ORDERABLES Performing Organization Address [facility] Co de Phone Number [facility] [place] [address] * Shiga Toxin Detection (06/07/2024 9:00 AM EDT) Shiga Toxin Assay EIA Negative for Shiga Toxin 1 EIA Negative for Shiga Toxin 2 [facility] Stool 06/07/2024 9:00 AM EDT 06/07/2024 1:32 PM EDT Narrative Resulting Agency Comment Spec In Lab Marcelle Weinberg BIG DATA ANALYTICS LEAD MICROBIOLOGY - GE NERAL ORDERABLES Performing Organization Address City/[facility]/ZIP Co de Phone Number [facility] [place] [address] * Stool culture (06/07/2024 9:00 AM EDT) Stool Culture No enteric pathogens isolated [facility] Stool 06/07/2024 9:00 AM EDT 06/07/2024 1:32 PM EDT Narrative Resulting Agency Comment Spec In Lab Marcelle Weinberg [employer] DATA ANALYTICS LEAD MICROBIOLOGY - GE NERAL ORDERABLES Performing Organization Address City/[facility]/ZIP Co de Phone Number [facility] [place] [address] * C. Difficile Screen (06/06/2024 5:30 PM EDT) C Diff Interp Negative Negative [facility] Comment: Ag/Tox Neg C. diff?? Negative Clostridium difficile is not present in the specimen. If patient is having diarrhea suspected to be from an infectious cause, then Soap & Water Contact Precautions are still required. Stool 06/06/2024 5:30 PM EDT 06/07/2024 1:32 PM EDT Narrative Resulting Agency Comment Spec In Lab Marcelle Weinberg [employer] DATA ANALYTICS LEAD MICROBIOLOGY - GE NERAL ORDERABLES Performing Organization Address [facility] Co de Phone Number [facility] [place] [address] * (ABNORMAL) Calprotectin, Stool (06/06/2024 5:30 PM EDT) Calprotectin, Stool 112(H) <=79 mcg/g [facility] Comment: Calprotectin Concentration ? Interpretation ? < 80 mcg/g ?Normal ? 80 ? 160 mcg/g ?Borderline ? >160 mcg/g ?Elevated Stool 06/06/2024 5:30 PM EDT 06/07/2024 1:07 PM EDT Narrative Resulting Agency Comment Spec In Lab Marcelle Weinberg [employer] DATA ANALYTICS LEAD BODY FLUIDS AND S TOOLS ORDERABLES Performing Organization Address [facility] de Phone Number [facility] [place] [address] * (ABNORMAL) CRP, acute inflammation (06/06/2024 9:04 AM EDT) C-Reactive Protein 6.4(H) <=4.9 mg/L [facility] Blood 06/06/2024 9:04 AM EDT 06/06/2024 9:12 AM EDT Narrative Resulting Agency Comment Spec In Lab Marcelle Weinberg [employer] DATA ANALYTICS LEAD CHEMISTRY ORDERAB LES [facility] [place] [address] * Differential, Automated (06/06/2024 9:04 AM EDT) Neutrophil % 70.3 % [facility] Neutrophil Absolute 4.36 1.70 - 6.10 x10(3)/[facility] Lymph % 19.7 % [facility] Lymphocytes Abs 1.2 0.9 - 3.2 x10(3)/[facility] Monocyte % 7.7 % [facility] Monocyte Abs 0.5 0.3 - 0.9 x10(3)/[facility] Eos % 1.3 % [facility] Eosinophils Abs 0.1 0.0 - 0.4 x10(3)/[facility] Basophil % 0.5 % [facility] Baso Absolute 0.0 0.0 - 0.1 x10(3)/[facility] Immature Gran % 0.50 % [facility] Comment: Immature granulocytes(IG's)percentage and absolute count will include metamyelocytes, myelocytes, and promyelocytes. Blood smears from CBCs yielding IG's will be scanned manually for concordance. If this scan disagrees with the automated IG or if promyelocytes are noted, a manual differential will be performed. Immature Gran Absolute 0.03 0.00 - 0.04 x10(3)/[facility] Blood 06/06/2024 9:04 AM EDT 06/06/2024 9:12 AM EDT Narrative Resulting Agency Comment Spec In Lab Marcelle Weinberg [employer]LYT[employer] LEAD HEMATOLOGY ORDERA BLES Performing Organization Address City/[facility]/ZIP Co de Phone Number [facility] [place] [address] * Sedimentation rate (06/06/2024 9:04 AM EDT) Sedimentation Rate Automated 38 3 - 46 mm/hr [facility] Comment: Effective November 02, 2019 new capillary photometric technology has resulted in a change in reference ranges. It is recommended that each ESR result be reviewed with its own age appropriate reference range. Blood 06/06/2024 9:04 AM EDT 06/06/2024 9:12 AM EDT Narrative Resulting Agency Comment Spec In Lab Marcelle Weinberg APRN HEMATOLOGY ORDERA BLES Performing Organization Address [facility] Co de Phone Number [facility] [place] [address] * Comprehensive metabolic panel (non-fasting) (06/06/2024 9:04 AM EDT) Glucose 136 65 - 199 mg/dL [facility] Comment:Diabetes: >=200 mg/d L plus symptoms Blood Urea Nitrogen 16 10 - 20 mg/dL [facility] Creatinine 1.05 0.80 - 1.50 mg/dL [facility] Sodium 144 135 - 145 mmol/L [facility] Potassium 4.2 3.5 - 5.0 mmol/L [facility] Comment: Please note: ??Patients with WBC >100,000 may have falsely elevated Potassium levels. ??For accurate Potassium quantification in these patients send serum separator tube (gold top) for subsequent determinations. ??Contact the Clinical Chemistry Laboratory if there are any questions. Chloride 107 98 - 107 mmol/L [facility] Carbon Dioxide 26 22 - 31 mmol/L [facility] Anion Gap 11 5 - 15 mmol/L [facility] Calcium 9.8 8.5 - 10.5 mg/dL [facility] Protein, Total 7.6 6.1 - 8.0 g/dL [facility] Albumin 4.1 3.2 - 5.2 g/dL [facility] Aspartate Aminotransferase 16 0 - 39 unit/L [facility] Alanine Aminotransferase 18 0 - 55 unit/L [facility] Alkaline Phosphatase 71 40 - 130 unit/L [facility] Bilirubin, Total 0.5 0.2 - 1.3 mg/dL [facility] Est Glomerular Filtration Rate 74 >=60 mL/min/1. 73 m?? [facility] Comment: This patient's estimated GFR [...] Agency Comment Spec In Lab Marcelle Weinberg BIG DATA ANALYTICS LEAD CHEMISTRY ORDERAB LES Performing Organization Address City/State/[facility] Co de Phone Number [facility] [place] [address] * COLONOSCOPY (01/20/2024 10:01 AM EST) COLONOSCOPY [facility] Procedure Date: 01/20/2024 10:01 AM ? Patient Name: Naya Rodriguez ? Date of : 1950 ? Age: 73 ? Order #: [id number] ? Instrument Name: [id number] ? Procedure: ? Colonoscopy Indications: ? Follow-up [...] ? physician, the nurse and the ? holter scanning technician in the pre-procedure ? area in [...] SIGMOIDOSCOPY (03/16/2012 1:15 PM EDT) FLEXIBLE SIGMOIDOSCOPY [facility] Endoscopy Patient Name: Naya Rodriguez ? Procedure Date: 03/16/2012 1:15 PM ? N: [id number] ? Date of : 1950 ? Age: 61 ? Order #: [id number] ? Procedure: ? Flexible Sigmoidoscopy Indications: ? pt with active UC, assess severity ? prior to entry in MTX study Providers: ? Enrico Tellez MD, April Augustine ? RONY Archibald, Kingsley Oneal, ? Packer Denture Referring MD: ?Maximilian Fall MD Requesting Provider: [...] Documents on File Type Date Recorded Patient Transformer Builder Expl anation Advance Directives and Livin g [...] capacity to make decision: Yes Care Teams Plaster Whittler Relationship Specialty Start Date End Date Deacon Watters, BIG DATA ANALYTICS LEAD [address] [place] [address] PCP - General Family Medicine 02/17/22
--- OUTSIDE RECORDS SUMMARY | 2024-07-18 14:25 | XMS_ITS | Encounter Summary ---
Author Organization [facility] Address [address] [place] [address] Care Team Providers Care Tray Line Supervisor Name Role Phone Maximilian Fall MD Primary Care Provider [phone] Encounter Details Date Type Department Care Team (Late st Contact Info) Description 11/10/2022 Lab Requisition [facility] Pathology & Laboratory Medicine - [address] [id number] Outr Resulting Lab, Provider Social History Tobacco [...] PCR Negative Negative 11/11/2022 0:14 EST [facility] Shigella/Enteroin vasive E. coli Negative Negative 11/11/2022 0:14 EST [facility] HN LAB CAMPYLOBACTER PCR Negative Negative 11/11/2022 0:14 EST [facility] Shiga Toxin PCR Negative Negative 2 0:14 EST [facility] Feces SPECIMEN FROM RECTUM / Unknown 11/09/2022 10:00 EST 11/10/2022 17:36 EST Provider Outr Resulting Lab MICROBIOLOGY - GENERAL ORDERABLES Performing Organization Address City/State/[facility] Co de Phone Number [facility] [address] [place] [address] documented in this encounter Visit Diagnoses Not on filedocumented in this encounter Care Teams Tray Line Supervisor Relationship Specialty Start Date End Date Maximilian Fall MD PCP - General 03/18/16 documented as of this encounter
--- OUTSIDE RECORDS SUMMARY | 2024-07-18 14:25 | XMS_ITS | Encounter Summary ---
Author Organization [facility] Address [address] [place] [address] Care Team Providers Care Ms Access Database Developer Name Role Phone More Naylor MD Primary Care Provider [phone] Encounter Details Date Type Department Care Team (Late st Contact Info) Description 10/30/2016 Results Only [facility]- [facility] [phone] Tamara Reza, [address] [place], [place] [id number] Social History Tobacco Use Types Packs/Day Years [...] ? NAYA RODRIGUEZ ? Accession #: ? [id number] ? : ? 1950 (Age: 66) ??M [...] This sample was processed at the [facility]. ??The slides were reviewed and the final diagnosis was made at [facility], [address] [place] [address]. ([place] License Number [id number]) Document reviewed and electronically signed by: AMIE [...] prior to verbal report. ??Procedure performed at [facility]. ??Staining of frozen section is adequate. ??Dr. [...] prior to verbal report. ??Procedure performed at [facility]. Staining of frozen section is adequate. ??Dr. [...] Chowdhury 11/03/2016 3:11 PM End of Report [facility] 10/30/2016 11:3 0 EST 11/01/2016 11:30 EST Tamara Reza DO PATHOLOGY ORDER ASHLIE [facility] [address] [place] [address] documented in this encounter Visit Diagnoses Not on filedocumented in this encounter Care Teams Ms Access Database Developer Relationship Specialty Start Date End Date More Naylor MD PCP - General 03/18/16 documented as of this encounter
--- OUTSIDE RECORDS SUMMARY | 2024-07-18 14:25 | XMS_ITS | Encounter Summary ---
Author Organization [facility] Address [address] [place] [address] Care Team Providers Care Court Orderly Name Role Phone More Fall MD Primary Care Provider [phone] Encounter Details Date Type Department Care Team (Late st Contact Info) Description 09/04/2016 Results Only [facility] [phone] More Fall MD [address] [place] [address] Social History Tobacco Use Types Packs/Day Years [...] ? NAYA RODRIGUEZ ? Accession #: ? [id number] ? : ? 1950 (Age: 66) ??M [...] (ASCP) 09/05/2016 2:42 PM End of Report [facility] 09/04/2016 11:2 3 EDT 09/05/2016 11:23 EDT More Fall MD PATHOLOGY ORDERABLES [facility] [address] [place] [address] documented in this encounter Visit Diagnoses Not on filedocumented in this encounter Care Teams Court Orderly Relationship Specialty Start Date End Date More Fall MD PCP - General 03/18/16 documented as of this encounter
--- OUTSIDE RECORDS SUMMARY | 2024-07-18 14:25 | XMS_ITS | Encounter Summary ---
Author Organization [facility] Address [address] [place] [address] Care Team Providers Care Food Court Team Member Name Role Phone Maximilian Fall MD Primary Care Provider [phone] Encounter Details Date Type Department Care Team (Late st Contact Info) Description 06/28/2021 Lab Requisition [facility] Pathology & Laboratory Medicine - [address] [address] Bettina Shipman, DO [address] [place] [address] Encounter for other general examination Social History [...] explore management options, if applicable. 07/02/2021 9:15 [facility] Final Diagnosis A. [...] with no significant diagnostic abnormalities. 07/02/2021 9:15 [facility] Attestation There was significant resident/fellow involvement in the diagnostic evaluation of this case. By the signature below, the attending physician certifies that they have personally conducted a gross and/or microscopic examination of the described specimens and rendered or confirmed the above diagnosis. 07/02/2021 9:15 [facility] at 0915 Clinical History Dysphagia 07/02/2021 9:15 [facility] Gross Description A. [...] Destin Barros 06/29/2021 11:30 07/02/2021 9:15 EDT [facility] Resident/Bridger w: Gutierrez Castro DO 07/02/2021 9:15 EDT [facility] Performing Lab [facility] 9:15 EDT [facility] Scanned Images 07/02/2021 9:15 EDT [facility] Tissue ENTIRE ESOPHAGUS / [...] 06/28/2021 13:55 EDT 06/28/2021 22:58 EDT Bettina Shipmna DO PATHOLOGY ORDERABLES [facility] [address] [place] [address] documented in this encounter Visit Diagnoses Diagnosis Encounter for other general examination documented in this encounter Care Teams Food Court Team Member Relationship Specialty Start Date End Date Maximilian Fall MD PCP - General 03/18/16 documented as of this encounter
--- OUTSIDE RECORDS SUMMARY | 2024-07-18 14:25 | XMS_ITS | Encounter Summary ---
Author Organization [facility] Address [address] [place] [address] Care Team Providers Care Breakfast Cook Name Role Phone Sharad Mcleod MD Primary Care Provider Unavail able Encounter Details Date Type Department Care Team (Late st Contact Info) Description 04/08/2010 Results Only [facility] Laboratory Services - [facility] [address] [place], [place] [id number] Marcelo Agustin, DO [address] [place], [place] [address] Social History Tobacco Use Types Packs/Day Years [...] ? RODRIGUEZ, BRIAN ? Accession #: ? [id number] ? : ? 1950 (Age: 59) ??M [...] cm, submitted in toto as (D). (Davina Ordoñez)/[facility] ? End of Report ? [facility] 04/08/2010 04/09/2010 16: 29 EDT Marcelo Agustin DO PATHOLOGY ORDER ASHLIE Performing Organization Address City/State/[facility] Co de Phone Number [facility] [address] [place] [address] documented in this encounter Visit Diagnoses Not on filedocumented in this encounter Care Teams Breakfast Cook Relationship Specialty Start Date End Date Sharad Mcleod MD PCP - General 12/07/09 03/17/16 documented as of this encounter
--- OUTSIDE RECORDS SUMMARY | 2024-07-18 14:25 | XMS_ITS | Encounter Summary ---
Author Organization [facility] Address [address] [place] [address] Care Team Providers Care Hotel Server Name Role Phone Maximilian Fall MD Primary Care Provider [phone] Encounter Details Date Type Department Care Team (Late st Contact Info) Description 03/10/2023 Lab Requisition [facility] Pathology & Laboratory Medicine - [address] [address] Rodrick Florentino MD [address] [place] [phone] Other microscopic hematuria Social History Tobacco [...] Name Priority Date/Time Associated Diagnosis Comments NON CHIROPRACTIC DOCTOR/FNA CYTOLOGY Today 03/09/2023 10:55 EDT Other microscopic hematuria documented in this encounter Results * NON CHIROPRACTIC DOCTOR/FNA CYTOLOGY (03/09/2023 10:55 EDT) Note to Patient The following pathology results have been interpreted by your pathologist and may be available to you before your health provider has had the opportunity to review them. Please allow time for your provider to receive these results and explore management options, if applicable. 03/12/2023 7:50 [facility] Final Diagnosis URINE, CATHETERIZED, CYTOLOGIC EVALUATION: - Negative for high grade urothelial carcinoma. - Reactive urothelial cells, abundant acute inflammatory cells and lymphocytes present. 03/12/2023 7:50 [facility] Attestation By the signature below, the attending physician certifies that they have personally conducted a gross and/or microscopic examination of the described specimens and rendered or confirmed the above diagnosis. 03/12/2023 7:50 [facility] at 0750 Clinical History Hematuria; R31.29 03/12/2023 7:50 [facility] Gross Description A. 160cc's of clear pale pink fluid (Cytolyt added) were received and processed by selective cellular enhancement technique. 03/12/2023 7:50 [facility] Performing Lab [facility] 03/12/2023 7:50 [facility] Scanned Images 03/12/2023 7:50 [facility] Urine URINE SPECIMEN COLLECTION, CATHETERIZED / Unknown 03/09/2023 10:55 EDT 03/10/2023 6:16 EDT Rodrick Florentino MD PATHOLOGY ORDERAB LES Performing Organization Address City/State/[facility] Co de Phone Number [facility] [address] [place] [address] documented in this encounter Visit Diagnoses Diagnosis Other microscopic hematuria documented in this encounter Care Teams Hotel Server Relationship Specialty Start Date End Date Maximilian Fall MD PCP - General 03/18/16 documented as of this encounter
--- OUTSIDE RECORDS SUMMARY | 2024-07-18 14:25 | XMS_ITS | Encounter Summary ---
Author Organization [facility] Address [address] [place] [address] Care Team Providers Care Fabrication Welder Name Role Phone Maximilian Fall MD Primary Care Provider [phone] Encounter Details Date Type Department Care Team [...] on filedocumented in this encounter Care Teams Fabrication Welder Relationship Specialty Start Date End Date Maximilian Fall MD PCP - General 03/18/16 documented as of this encounter
--- OUTSIDE RECORDS SUMMARY | 2024-07-18 14:25 | XMS_ITS | Encounter Summary ---
Author Organization [facility] Address [address] [place] [address] Care Team Providers Care Cleat Maker Name Role Phone Maximilian Fall MD Primary Care Provider [phone] Encounter Details Date Type Department Care Team (Latest Contact Info) Description 12/31/2017 9:43 EST - 12/31/2017 23:59 EST Hospital Encounter [address] [address] Unknown, Provider, Discharge Disposition: Home or Self Care Social History Tobacco Use Types Packs/Day Years Used Date Smoking Tobacco: Never Assessed Sex and Gender Information Value Date Recorded Sex Assigned at Not on file Gender Identity Not on file Sexual Orientation Not on file documented as of this encounter Discharge Disposition Disposition Code Departure Means Destination Home or Self Penitentiary documented in this encounter Plan of Treatment Not on file documented as of this encounter Visit Diagnoses Not on filedocumented in this encounter Care Teams Cleat Maker Relationship Specialty Start Date End Date Maximilian Fall MD PCP - General 03/18/16 documented as of this encounter
--- OUTSIDE RECORDS SUMMARY | 2024-07-18 14:25 | XMS_ITS | Encounter Summary ---
Author Organization [facility] Address [address] [place] [address] Care Team Providers Care Grinder Mill Operator Name Role Phone Sharad Leon MD Primary Care Provider Unavail able Encounter Details Date Type Department Care Team (Latest Contact Info) Description 03/14/2016 7:58 EDT - 03/14/2016 23:59 EDT Hospital Encounter [address] [address] Unknown, Provider, Discharge Disposition: Home or Self Care Social History Tobacco Use Types Packs/Day Years Used Date Smoking Tobacco: Never Assessed Sex and Gender Information Value Date Recorded Sex Assigned at Not on file Gender Identity Not on file Sexual Orientation Not on file documented as of this encounter Discharge Disposition Disposition Code Departure Means Destination Home or Self [facility] documented in this encounter Plan of Treatment Not on file documented as of this encounter Visit Diagnoses Not on filedocumented in this encounter Care Teams Grinder Mill Operator Relationship Specialty Start Date End Date Sharad Leon MD PCP - General 12/07/09 03/17/16 documented as of this encounter
--- OUTSIDE RECORDS SUMMARY | 2024-07-18 14:25 | XMS_ITS | Encounter Summary ---
Author Organization [facility] Address [address] [place] [address] Care Team Providers Care Beam Warper Name Role Phone Maximilian Fall MD Primary Care Provider [phone] Encounter Details Date Type Department Care Team (Latest Contact Info) Description 09/04/2016 8:11 EDT - 09/04/2016 23:59 EDT Hospital Encounter [address] [address] Unknown, Provider, Discharge Disposition: Home or Self Care Social History Tobacco Use Types Packs/Day Years Used Date Smoking Tobacco: Never Assessed Sex and Gender Information Value Date Recorded Sex Assigned at Not on file Gender Identity Not on file Sexual Orientation Not on file documented as of this encounter Discharge Disposition Disposition Code Departure Means Destination Home or Self Assisted documented in this encounter Plan of Treatment Not on file documented as of this encounter Visit Diagnoses Not on filedocumented in this encounter Care Teams Beam Warper Relationship Specialty Start Date End Date Maximilian Fall MD PCP - General 03/18/16 documented as of this encounter
--- OUTSIDE RECORDS SUMMARY | 2024-07-18 14:25 | XMS_ITS | Encounter Summary ---
Author Organization [facility] Address [address] [place] [address] Care Team Providers Care Instructional Technology Instructor Name Role Phone Maximilian Fall MD Primary Care Provider [phone] Encounter Details Date Type Department Care Team (Late st Contact Info) Description 08/15/2022 Lab Requisition [facility] Pathology & Laboratory Medicine - [address] [address] Zeyad Hudson, [address] [place] [address] Neoplasm of unspecified behavior of bone, soft [...] explore management options, if applicable. 08/18/2022 11:15 [facility] Final Diagnosis A. SKIN OF NASAL DORSUM, RIGHT, SHAVE BIOPSY: - Basal cell carcinoma, infiltrative type. - Basal cell carcinoma present at peripheral and deep tissue edges. 08/18/2022 11:15 [facility] Attestation By the signature below, the attending physician certifies that they have 1) personally conducted a gross and/or microscopic examination of the described specimen(s), and/or personally interpreted the results of laboratory testing of the described specimen(s), and 2) personally rendered or confirmed the above diagnosis. 08/18/2022 11:15 [facility] at [address] Microscopic Description Emanating [...] of the islands and stroma. 08/18/2022 11:15 [facility] Clinical History History BCC; clinical diagnosis code: D49.2 08/18/2022 11:15 [facility] Gross Description A. Received in [...] A1-A3. TOLU CHRIS 08/16/2022 10:29 08/18/2022 11:15 [facility] Performing Lab [facility] 08/18/2022 11:15 [facility] Scanned Images 08/18/2022 11:15 [facility] Tissue TISSUE SPECIMEN FROM SKIN / Unknown 08/14/2022 10:25 EDT 08/15/2022 21:12 EDT Zeyad MIRAMONTES PATHOLOGY ORDERABL ES [facility] [address] [place] [address] documented in this encounter Visit Diagnoses Diagnosis Neoplasm of unspecified behavior of bone, soft tissue, and skin documented in this encounter Care Teams Instructional Technology Instructor Relationship Specialty Start Date End Date Maximilian Fall MD PCP - General 03/18/16 documented as of this encounter
--- OUTSIDE RECORDS SUMMARY | 2024-07-18 14:25 | XMS_ITS | Encounter Summary ---
Author Organization [facility] Address [address] [place] [address] Care Team Providers Care Medical Support Assistant Name Role Phone Maximilian Fall MD Primary Care Provider [phone] Encounter Details Date Type Department Care Team (Late st Contact Info) Description 11/28/2021 Lab Requisition [facility] Pathology & Laboratory Medicine - [address] [phone] Outr Resulting Lab, Provider Social History Tobacco [...] Outr Resulting Lab MICROBIOLOGY - GENERAL ORDERABLES [facility] [address] [place] [address] * COVID-19 TESTING (11/27/2021 12:35 EST) COVID-19 rt-PCR Result Negative Negative 11/29/2021 16:23 EST [facility] Comment: This test has not [...] testing. This test is based on the [facility] COVID-19 Emergency Use Authorization (EUA) assay, with minor modification as defined by the FDA Performed on the Cooleafo 7 Flex RT-PCR System. Performing Lab [facility] 11/29/2021 16:23 EST [facility] Swab 11/27/2021 12:3 5 EST 11/28/2021 17:45 EST Provider Outr Resulting Lab MICROBIOLOGY - GENERAL ORDERABLES [facility] [address] [place] [address] documented in this encounter Visit Diagnoses Not on filedocumented in this encounter Care Teams Medical Support Assistant Relationship Specialty Start Date End Date Maximilian Fall MD PCP - General 03/18/16 documented as of this encounter
--- OUTSIDE RECORDS SUMMARY | 2024-07-18 14:25 | XMS_ITS | Referral Summary ---
Author Organization [facility] Address [address] [place] [address] Care Team Providers Care Online Health And Fitness Coach Name Role Phone Maximilian Fall MD Primary Care Provider [phone] Encounters Date Type Department Care Team Description 06/29/2024 Travel 06/29/2024 18:51 EDT - 06/29/2024 23:59 EDT Hospital Encounter [facility] Secondary [place] Discharge Disposition: [...] DERABLES from Last 3 Months Care Teams Online Health And Fitness Coach Relationship Specialty Start Date End Date Maximilian Fall MD PCP - General 03/18/16
--- OUTSIDE RECORDS SUMMARY | 2024-07-18 14:25 | XMS_ITS | Encounter Summary ---
Author Organization [facility] Address [address] [place] [address] Care Team Providers Care Dental Intern Name Role Phone Sharad Leon MD Primary Care Provider Unavail able Encounter Details Date Type Department Care Team (Late st Contact Info) Description 03/13/2016 Results Only [facility] [phone] Marcy Laurent, DO [address] [place] [address] Social History Tobacco Use Types [...] ? BRIAN RODRIGUEZ ? Accession #: ? [id number] ? : ? 1950 (Age: 65) ??M [...] to the proximal stapled margin, two sales and service representative cross sections and one-half of the longitudinally bisected distal tip are submitted in 1. Dr. Beth 03/17/2016 3:13 PM End of Report [facility] 03/13/2016 19:4 2 EDT 03/14/2016 19:42 EDT Marcy Laurent DO PATHOLOGY ORDERABLES [facility] [address] [place] [address] * SUSCEPTIBILITY (03/13/2016 12:15 EDT) Result ESCHERICHIA COLI Organism identification performed by client. 03/17/2016 7:51 EDT [facility] URINE / Unknown 03/13/2016 1 [...] - GENER AL ORDERABLES Performing Organization Address City/[facility] Co de Phone Number [facility] [address] [place] [address] documented in this encounter Visit Diagnoses Not on filedocumented in this encounter Care Teams Dental Intern Relationship Specialty Start Date End Date Sharad Leon MD PCP - General 12/07/09 03/17/16 documented as of this encounter
--- OUTSIDE RECORDS SUMMARY | 2024-07-18 14:25 | XMS_ITS | Encounter Summary ---
Author Organization [facility] Address [address] [place] [address] Care Team Providers Care Process Engineering Technician Name Role Phone Sharad Mcleod MD Primary Care Provider Unavail able Encounter Details Date Type Department Care Team (Late st Contact Info) Description 10/22/2004 Results Only [facility] - Maple conversion [address] [place] [address] Maximilian Quiroga MD [address] [place] [phone] Social History Tobacco Use Types Packs/Day Years [...] ? NAYA RODRIGUEZ ? Accession #: ? [id number] ? : ? 1950 (Age: 54) ??M [...] or eosinophils seen in this biopsy. ??(Dr. Hair)/[facility] ?? Document reviewed and electronically signed [...] submitted intact in one cassette. ?? (Dr. Terrazas-MS)/[facility] ?? End of Report [facility] 10/22/2004 10/22/2004 14: 58 EST Maximilian Quiroga MD PATHOLOGY ORDERABLES [facility] [address] [place] [address] documented in this encounter Visit Diagnoses Not on filedocumented in this encounter Care Teams Process Engineering Technician Relationship Specialty Start Date End Date Sharad Mcleod MD PCP - General 12/07/09 03/17/16 documented as of this encounter
--- OUTSIDE RECORDS SUMMARY | 2024-07-18 14:25 | XMS_ITS | Encounter Summary ---
Author Organization [facility] Address [address] [place] [address] Care Team Providers Care Criminal Justice Teacher Name Role Phone Maximilian Fall MD Primary Care Provider [phone] Encounter Details Date Type Department Care Team (Late st Contact Info) Description 04/10/2020 Lab Requisition [facility] Pathology & Laboratory Medicine - [address] [phone] Outr Resulting Lab, Provider Social History Tobacco [...] 10:46 EDT [facility] Blood VENOUS BLOOD / Unknown 04/10/2020 9:15 EDT 04/10/2020 15:53 EDT Narrative [facility] - 04/11/2020 10:46 EDT NOTE: Serum PSA concentration should not be interpreted as absolute evidence for the presence or absence of malignant disease. Assayed on Siemens ADVIA SearchForceaur XPT using chemiluminescent technology.??Values obtained by using different assay methods cannot be used interchangeably. Provider Outr Resulting Lab CHEMISTRY & BLOOD GAS ORDERABLES [facility] [address] [place] [address] documented in this encounter Visit Diagnoses Not on filedocumented in this encounter Care Teams Criminal Justice Teacher Relationship Specialty Start Date End Date Maximilian Fall MD PCP - General 03/18/16 documented as of this encounter
--- OUTSIDE RECORDS SUMMARY | 2024-07-18 14:25 | XMS_ITS | Encounter Summary ---
Author Organization [facility] Address [address] [place] [address] Care Team Providers Care Gum Sprayer Name Role Phone Maximilian Fall MD Primary Care Provider [phone] Encounter Details Date Type Department Care Team (Late st Contact Info) Description 12/31/2017 Results Only [facility] [phone] Tamara Reza, [address] [place], [place] [id number] Social History Tobacco Use Types Packs/Day Years [...] ? NAYA RODRIGUEZ ? Accession #: ? [id number] ? : ? 1950 (Age: 67) ??M [...] [place] 01/02/2018 9:44 AM End of Report [facility] 12/31/2017 16:3 5 EST 01/01/2018 16:35 EST Tamara Reza DO PATHOLOGY ORDER ASHLIE [facility] [address] [place] [address] documented in this encounter Visit Diagnoses Not on filedocumented in this encounter Care Teams Gum Sprayer Relationship Specialty Start Date End Date Maximilian Fall MD PCP - General 03/18/16 documented as of this encounter
--- OUTSIDE RECORDS SUMMARY | 2024-07-18 14:25 | XMS_ITS | Encounter Summary ---
Author Organization [facility] Address [address] [place] [address] Care Team Providers Care Paper Cone Machine Tender Name Role Phone Unavailable Primary Care Provider Unavailabl e Encounter Details Date Type Department Care Team (Late st Contact Info) Description 10/09/2008 Before PRISM Converted Visit (Maple) [facility] - Maple conversion [address] [place] [address] Yeni Agustin MD [address] [place] [address] Social History Tobacco Use Types Packs/Day Years [...] ? RODRIGUEZ, BRIAN ? Accession #: ? [id number] ? : ? 1950 (Age: 58) ??M [...] PATHOLOGY ORDERABLE [facility] [address] [place] [address] documented in this encounter Visit Diagnoses Not on filedocumented in this encounter
--- OUTSIDE RECORDS SUMMARY | 2024-07-18 14:26 | XMS_ITS | Encounter Summary ---
Author Organization [facility] Address [facility] [place] [address] Care Team Providers Care Machine Assembler For Puller Over Name Role Phone Deacon Watters APRN Primary Care Provider [phone] Encounter Details Date Type Department Care Team (Late st Contact Info) Description 07/05/2024 Abstract Cardiology at [address] [address] Lesa Duncan, RN Social History Tobacco Use Types Packs/Day Years Used Date Smoking Tobacco: Former Cigarettes 4 30 1 12/01/1961 - 10/01/1992 Smokeless Tobacco: Former Chew Comments:Denies vaping Alcohol Use Standard Drinks/Week Comments Yes 0 (1 standard drink = 0.6 oz pur e alcohol) twice a year [facility] Utilities Answer Date Recorded In the past 12 months has e [employer], gas, oil, or water [employer] threatened to shut off services in your [...] any time in the past 12 m [facility], were you homeless or living in a retirement (including now)? No 07/01/2024 IPV Inpatient Questions [...] 9:00 AM EDT Office [place] [address] Dion Barlow MD [facility] [place] [address] 09/01/2024 9:40 AM EDT Office Visit Cardiology at [address] [phone] Franky Shaver MD [facility] [place] [address] 09/01/2024 11:20 AM EDT Office Visit Dermatology at [facility] [address] [place] [phone] Gómez Mercer MD [facility] DR [place] [address] 09/21/2024 2:45 PM EDT Office Visit [place] [address] Trung Hoyos MD [facility] [place] [address] documented as of this encounter Visit Diagnoses Not on filedocumented in this encounter Care Teams Machine Assembler For Puller Over Relationship Specialty Start Date End Date Deacon Watters, CHINESE HERBALIST [address] [place] [address] [address] [place] [address] PCP - General Family Medicine 02/17/22 documented as of this encounter
--- OUTSIDE RECORDS SUMMARY | 2024-07-18 14:26 | XMS_ITS | Encounter Summary ---
Author Organization [facility] Address [facility] [place] [address] Care Team Providers Care Trackman Name Role Phone Deacon Watters APRN Primary Care Provider [phone] Reason for Visit * Reason Onset Date Comments Referral 07/05/2024 Coronary Artery Disease 07/05/2024 Encounter Details Date Type Department Care Team (Late st Contact Info) Description 07/05/2024 Telephone Cardiology at [address] [address] Lesa Duncan, personal care aide; Coronary Artery Disease Social History Tobacco Use Types Packs/Day Years Used Date Smoking Tobacco: Former Cigarettes 4 30 1 12/01/1961 - 10/01/1992 Smokeless Tobacco: Former Chew Comments:Denies vaping Alcohol Use Standard Drinks/Week Comments Yes 0 (1 standard drink = 0.6 oz pur e alcohol) twice a year [facility] Utilities Answer Date Recorded In the past 12 months has e [employer], gas, oil, or water [employer] threatened to shut off services in your [...] any time in the past 12 m [facility], were you homeless or living in a correction (including now)? No 07/01/2024 IPV Inpatient Questions [...] were not included. [facility] [address] [place] [address] [place] [address] Brian Rodriguez was discharged from [facility] with a referral to see inspector rag sorting Dr. Franky Shaver following NSTEMI June 30. Brian Rodriguez is a 74 y.o. male with history of HTN, HLD, migraines, DM2, and UC who presented to [facility] for chest pain and was transferred to [facility] for NSTEMI found to [...] 3.66) performed by Dion Osullivan MD at [facility] COLONOSCOPY, BIOPSY N/A 02/22/2019 COLONOSCOPY FLEXIBLE, WITH BX (WRVU 3.66) performed by Dion Osullivan MD at [facility] COLONOSCOPY, BIOPSY N/A 03/28/2022 COLONOSCOPY FLEXIBLE, WITH BX (WRVU 3.66) performed by Mona Turner MD at [facility] COLONOSCOPY, BIOPSY N/A 01/20/2024 COLONOSCOPY FLEXIBLE, WITH BX (WRVU 3.56) performed by Anthony Hamlin MD at [facility] COLONOSCOPY, DIAGNOSTIC 11/27/2011 COLONOSCOPY, DIAGNOSTIC performed by Dion OSULLIVAN at [facility] COLONOSCOPY, DIAGNOSTIC 07/13/2014 COLONOSCOPY, DIAGNOSTIC performed by Dion Osullivan MD at [facility] COLONOSCOPY, REMV LESN, SNARE N/A 02/22/2019 COLONOSCOPY, POLYPECTOMY, REMOVAL LESION BY SNARE (WRVU 4.67) performed by Dion Osullivan MD at [facility] COLONOSCOPY, REMV LESN, SNARE N/A 02/26/2021 COLONOSCOPY, POLYPECTOMY, REMOVAL LESION BY SNARE (WRVU 4.67) performed by Dion Osullivan MD at [facility] SIGMOIDOSCOPY, DIAGNOSTIC 03/16/2012 FLEXIBLE SIGMOIDOSCOPY performed by YUDI MALLOY at [facility] UPPER GI ENDOSCOPY, DIAGNOSTIC N/A 04/28/2019 EGD, UPPER GI ENDOSCOPY performed by Iza Coates MD at [facility] UPPER GI ENDOSCOPY, EXAM 10/01/2012 UPPER GI ENDOSCOPY performed by Dion OSULLIVAN at [facility] Current Medications. dicyclomine (Bentyl) 20 mg [...] the patient to see Cardiology here in [facility]. documented in this encounter Plan of Treatment Upcoming Encounters Date Type Department Care Team (Late st Contact Info) Description 08/15/2024 9:00 AM EDT Office [place] [address] Dion Osullivan MD [facility] [place] [address] 09/01/2024 9:40 AM EDT Office Visit Cardiology at [address] [place] [address] Franky Shaver MD [facility] [place] [address] 09/01/2024 11:20 AM EDT Office Visit Dermatology at [facility] [address] [place] [address] Gómez Mercer MD [facility] DR [place] [address] 09/21/2024 2:45 PM EDT Office Visit [facility] and Spine Center at [facility] [place] [address] Trung Hoyos MD [facility] [place] [address] documented as of this encounter Visit Diagnoses Not on filedocumented in this encounter Care Teams Trackman Relationship Specialty Start Date End Date Deacon Watters, KNOWLEDGE MANAGEMENT ADVISOR [address] [place] [address] PCP - General Family Medicine 02/17/22 documented as of this encounter
--- OUTSIDE RECORDS SUMMARY | 2024-07-18 14:26 | XMS_ITS | Encounter Summary ---
Author Organization [facility] Address [facility] [place] [address] Care Team Providers Care Flight Line Mechanic Name Role Phone Deacon Watters APRN Primary Care Provider [phone] Reason for Visit * Reason Comments Medication Refill Encounter Details Date Type Department Care Team (Late st Contact Info) Description 07/01/2024 [place] [address] [facility] [place] [address] Social History Tobacco Use Types Packs/Day Years Used Date Smoking Tobacco: Former Cigarettes 4 30 1 12/01/1961 - 10/01/1992 Smokeless Tobacco: Former Chew Comments:Denies vaping Alcohol Use Standard Drinks/Week Comments Yes 0 (1 standard drink = 0.6 oz pur e alcohol) twice a year [facility] Utilities Answer Date Recorded In the past 12 months has e [employer], gas, oil, or water [employer] threatened to shut off services in your [...] any time in the past 12 m [facility], were you homeless or living in a chcf (including now)? No 07/01/2024 IPV Inpatient Questions [...] 9:00 AM EDT Office [place] [address] [facility] [place] [address] 09/01/2024 9:40 AM EDT Office Visit Cardiology at [address] [phone] Franky Shaver MD [facility] [place] [address] 09/01/2024 11:20 AM EDT Office Visit Dermatology at [facility] [address] [place] [phone] Gómez Mercer MD [facility] [address] EDD[place] [address] 09/21/2024 2:45 PM EDT Office Visit [place] [phone] Trung Hoyos MD [facility] [place] [address] documented as of this encounter Visit Diagnoses Not on filedocumented in this encounter Care Teams Flight Line Mechanic Relationship Specialty Start Date End Date Deacon Watters, JAZMINE [address] [place] [address] PCP - General Family Medicine 02/17/22 documented as of this encounter
--- OUTSIDE RECORDS SUMMARY | 2024-07-18 14:26 | XMS_ITS | Encounter Summary ---
Author Organization [facility] Address [facility] [place] [address] Care Team Providers Care Dietetic Assistant Name Role Phone Deacon Watters APRN Primary Care Provider [phone]- [phone] Reason for Referral * Consultation (Routine) - Authorized Specialty Diagnoses / Procedures Referred By Contac t Referred To Contact Cardiology Diagnoses NSTEMI (non-ST elevated myocardial infarction) Ronel Hensley MD [facility] [place] [address] [facility] Cardiology [address] [place] [phone] Referral ID Status Reason Start Date Expiration Date Visits Requested Visits Authorized [id number] Authorized Consult, Test & Treat 07/04/2024 07/04/2025 1 1 * Consultation (Routine) - Authorized Specialty Diagnoses / Procedures Referred By Contac t Referred To Contact Cardiology Diagnoses NSTEMI (non-ST elevated myocardial infarction) Armond Denny MD [facility] [place] [address] Cardiac Rehab, [facility] [address] [place] [address] [place] [address] Referral ID Status Reason Start Date Expiration Date Visits Requested Visits Authorized [id number] Authorized Consult, Test & Treat 07/04/2024 12/31/2024 36 36 Reason for Visit * Auth/Cert (Routine) Specialty Diagnoses / Procedures Referred By Contac t Referred To Contact Diagnoses NSTEMI (non-ST elevated myocardial infarction) NSTEMI Triston Godinez MD [facility] [place] [address] [facility] [[email or web address]] Referral ID Status Reason Start Date Expiration Date Visits Re quested Visits Authorized [id number] 1 1 Encounter Details Date Type Department Care Team (Latest Contact Info) Description 06/30/2024 3:44 PM EDT - 07/04/2024 3:25 PM EDT Hospital Encounter Heart and Vascular Unit Level 3 Wing B at [place] [phone] Triston Godinez MD [facility] [place] [address] Armond Denny MD [facility] [place] [address] NSTEMI (non-ST elevated myocardial infarction) (Primary Dx) [...] Recorded In the past 12 months has [employer], gas, oil, or water company threatened [...] time in the past 12 m [facility], were you homeless or living in a retirement (including now)? No 07/01/2024 DH IPV Inpatient [...] HLD, migraines, DM2, and UC who [facility] and was transferred to [facility] for NSTEMI found to have HFrEF. Course [...] He was discharged with 6 days of mg BID after receiving 1 day of [...] Jardiance allergy. PCP Contact Information: Deacon Watters, DEVULCANIZER OPERATOR [address] / [facility] [address] Discharge Diagnoses (Hospital Problems) and Secondary Diagnoses [...] #HTN #HLD Mr. Rodriguez was transferred to [facility] for NSTEMI with trops of 4143 and 20,000 at the OSH, where he was loaded with ASA, plavix and started on heparin gtt. At [facility], his trops trended down to 1234. In [...] dose. Would consider changes to his regimen longterm to reduce the A1c. #GERD He takes [...] to exclude urinary tract infection. Cardiac Catheterization: ([facility]) RIGHT dominance LVEDP 10 Artery Lesion Intervention [...] 9:00 AM Dion Osullivan MD Gastroenterology at [facility] Arrive at: [place] [phone] 09/01/2024 11:20 AM Gómez Mercer MD Dermatology at [facility] Arrive at: [place] [address] [place] [phone] 09/21/2024 2:45 PM Trung Hoyos MD Pain and Spine Center at [facility] Arrive at: [place] [phone] Future Orders Complete By Expires Referral to Cardiac Rehab [[id number] Custom] As directed Process Instructions: If no progress note charted, please enter Clinical details in comments. Scheduling Instructions: Questions: My question or request is: NSTEMI, PCI, HFrEF- cardiac rehab at [facility] Referral to Cardiology [REF12 Custom] As [...] appointments: During 8am-5pm Thursday through Thursday call [phone] to speak with a nurse in the cardiology clinic All other times call [phone] and ask to speak to the account auditor refinery operator polymerization plant. Home oxygen therapy: none Arrangements for VNA/home care: none Follow up Appointments: Future Appointments Date Time Provider Department Center 08/15/2024 9:00 AM Dion Osullivan MD [facility] 09/01/2024 11:20 AM Gómez Mercer MD [facility] 09/21/2024 2:45 PM Trung Hoyos MD [facility] Pain Sp [facility] Lawn Specialist: [facility] - referral sent and they are aware you need an appointment. If they do not reach out to you with an appointment in 1 week, call and ask for the cardiology clinic. PCP: Deacon Watters APRN at [phone] on July 08 at 4 PM Your Inpatient Doctor(s) at [facility]: Armond Denny MD - Attending physician Your Primary Care Provider: Deacon Watters APRN [address] / [facility] [phone] If you have non-emergent questions between now and the time of your follow up appointments: During 8am-5pm Thursday through Thursday call [phone] to speak with a nurse in the cardiology clinic All other times call [phone] and ask to speak to the account auditor refinery operator polymerization plant. Provider Contact Information: Deacon Watters APRN [address] / [facility] [place] [address] Discharge References/Attachments: Discharge References/Attachments None For questions regarding this document or issues relating to this hospitalization on the Medical Service, please contact your inpatient physician through the [facility] Orchard Manager . Issues afterhours and on weekends will be handled by the Lawn Specialist staff on-call. Signed: Ronel Hensley MD Internal [...] appointments: During 8am-5pm Thursday through Thursday call [phone] to speak with a nurse in the cardiology clinic All other times call [phone] and ask to speak to the account auditor refinery operator polymerization plant. Home oxygen therapy: none Arrangements for VNA/home care: none Follow up Appointments: Future Appointments Date Time Provider Department Center 08/15/2024 9:00 AM Dion Osullivan MD [facility] GASTRO [facility] 09/01/2024 11:20 AM Gómez Mercer MD [facility] 09/21/2024 2:45 PM Trung Hoyos MD [facility] Pain Sp [facility] Lawn Specialist: [facility] - referral sent and they are aware you need an appointment. If they do not reach out to you with an appointment in 1 week, call and ask for the cardiology clinic. PCP: Deacon Watters APRN at [phone] on July 08 at 4 PM Your Inpatient Doctor(s) at [facility]: Armond Denny MD - Attending physician Your Primary Care Provider: Deacon Watters APRN [address] [facility] / [facility] [id number] If you have non-emergent questions between now and the time of your follow up appointments: During 8am-5pm Thursday through Thursday call [phone] to speak with a nurse in the cardiology clinic All other times call [phone] and ask to speak to the account auditor refinery operator polymerization plant. documented in this encounter Medications at Time [...] migraines, DM2, and UC whowas transferred to [facility] for NSTEMI and now found to have [...] 3.66) performed by Dion Osullivan MD at [facility]COPY PRO COLONOSCOPY, BIOPSY N/A 02/22/2019 COLONOSCOPY FLEXIBLE, WITH BX (WRVU 3.66) performed by Dion Osullivan MD at [facility] PRO COLONOSCOPY, BIOPSY N/A 03/28/2022 COLONOSCOPY FLEXIBLE, WITH BX (WRVU 3.66) performed by Mona Turner MD at [facility] PRO COLONOSCOPY, BIOPSY N/A 01/20/2024 COLONOSCOPY FLEXIBLE, WITH BX (WRVU 3.56) performed by Anthony Hamlin MD at [facility] PRO COLONOSCOPY, DIAGNOSTIC 11/27/2011 COLONOSCOPY, DIAGNOSTIC performed by Dion OSULLIVAN at [facility] PRO COLONOSCOPY, DIAGNOSTIC 07/13/2014 COLONOSCOPY, DIAGNOSTIC performed by Dion Osullivan MD at [facility] PRO COLONOSCOPY, REMV LESN, SNARE N/A 02/22/2019 COLONOSCOPY, POLYPECTOMY, REMOVAL LESION BY SNARE (WRVU 4.67) performed by Dion Osullivan MD at [facility] PRO COLONOSCOPY, REMV LESN, SNARE N/A 02/26/2021 COLONOSCOPY, POLYPECTOMY, REMOVAL LESION BY SNARE (WRVU 4.67) performed by Dion Osullivan MD at [facility] PRO SIGMOIDOSCOPY, DIAGNOSTIC 03/16/2012 FLEXIBLE SIGMOIDOSCOPY performed by YUDI MALLOY at [facility] PRO UPPER GI ENDOSCOPY, DIAGNOSTIC N/A 04/28/2019 EGD, UPPER GI ENDOSCOPY performed by Iza Coates MD at [facility] UPPER GI ENDOSCOPY, EXAM 10/01/2012 UPPER GI ENDOSCOPY performed by Dion OSULLIVAN at [facility] Social History: Home set-up: Lives on the first floor of a two level home in [place], [place] Stairs: FOS with bilateral rails vs a few stairs through the back to the first level, 8 step between rooms Bathroom Set-up: Tub-shower with grab bars, no shower chair Baseline Mobility: Ambulates without an assistive device. Independent with I/ADLs, including driving. 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 He enjoys taking care of his property including [place]. He sleeps in a flat bed. 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 [...] Moderate Complexity Evaluation Qing Braxton, PT Pager: [phone] Physical Therapy Inpatient Rehabilitation Department * Day, Tray Bassett OT - 07/04/2024 9:40 AM EDT Occupational Therapy Evaluation Patient profile: Brian Rodriguez is a 74 y.o. male admitted on 06/30/2024 with PMHx of HTN, HLD, migraines, DM2, and UC who was transferred to [facility] for NSTEMI and now found to have HFrEF. Pt now s/p PCIto LCX. Past Medical History: Diagnosis Date Asthma 10/01/2011 Diabetes mellitus 10/01/2011 GERD (gastroesophageal reflux disease) 10/01/2011 Hearing loss 10/01/2011 Hydrocele 10/01/2011 Ulcerative colitis 10/01/2011 Past Surgical History: Procedure Laterality Date PRO COLONOSCOPY, BIOPSY N/A 02/12/2017 COLONOSCOPY FLEXIBLE, WITH BX (WRVU 3.66) performed by Dion Osullivan MD at [facility] PRO COLONOSCOPY, BIOPSY N/A 02/22/2019 COLONOSCOPY FLEXIBLE, WITH BX (WRVU 3.66) performed by Dion Osullivan MD at [facility] PRO COLONOSCOPY, BIOPSY N/A 03/28/2022 COLONOSCOPY FLEXIBLE, WITH BX (WRVU 3.66) performed by Mona Turner MD at [facility] PRO COLONOSCOPY, BIOPSY N/A 01/20/2024 COLONOSCOPY FLEXIBLE, WITH BX (WRVU 3.56) performed by Anthony Hamlin MD at [facility] PRO COLONOSCOPY, DIAGNOSTIC 11/27/2011 COLONOSCOPY, DIAGNOSTIC performed by Dion OSULLIVAN at [facility] PRO COLONOSCOPY, DIAGNOSTIC 07/13/2014 COLONOSCOPY, DIAGNOSTIC performed by Dion Osullivan MD at [facility] PRO COLONOSCOPY, REMV LESN, SNARE N/A 02/22/2019 COLONOSCOPY, POLYPECTOMY, REMOVAL LESION BY SNARE (WRVU 4.67) performed by Dion Osullivan MD at [facility] PRO COLONOSCOPY, REMV LESN, SNARE N/A 02/26/2021 COLONOSCOPY, POLYPECTOMY, REMOVAL LESION BY SNARE (WRVU 4.67) performed by Dion Osullivan MD at [facility] PRO SIGMOIDOSCOPY, DIAGNOSTIC 03/16/2012 FLEXIBLE SIGMOIDOSCOPY performed by YUDI MALLOY at [facility] PRO UPPER GI ENDOSCOPY, DIAGNOSTIC N/A 04/28/2019 EGD, UPPER GI ENDOSCOPY performed by Iza Coates MD at [facility] UPPER GI ENDOSCOPY, EXAM 10/01/2012 UPPER GI ENDOSCOPY performed by Dion OSULLIVAN at [facility] Social History: Home set-up: Lives on the first floor of a two level home in [place], [place] Stairs: FOS with bilateral rails vs a few stairs through the back to the first level, 8 step between rooms Bathroom Set-up: Tub-shower with grab bars, no shower chair Baseline Mobility: Ambulates without an assistive device. Independent with I/ADLs, including driving. 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 He enjoys taking care of his property including [employer]. He sleeps in a flat bed. 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 [...] and measurable assessment of functional outcome. Pager: [phone] Tray Bassett. WILLY LoganR/L Occupational Therapy Rehabilitation Department * Armond Denny MD - 07/03/2024 7:03 AM EDT Inpatient Cardiology Progress Note Patient Name: Brian Rodriguez Date of Admission: 06/30/2024 ( Hospital Day 3 days ) Service: S2 ID: Brian Rodriguez is a 74 y.o. male with PMHx of HTN, HLD, migraines, DM2, and UC who presented [facility] for chest pain and was transferred to [facility] for NSTEMI found to have HFrEF. Active [...] 1809 PROBNP 2,259* Trops: OSH 4143 >20,000>> [facility] 1234 and 1274 06/30 Telemetry: some PVCs [...] to exclude urinary tract infection. Cardiac Catheterization: ([facility]) RIGHT dominance LVEDP 10 Artery Lesion Intervention [...] DM2, and UC who was transferred to [facility] for NSTEMI and now found to have [...] 7.3. Will need outpatient follow up for longterm changes. - holding home glipizide and metformin [...] Katia Reid MD Internal Medicine PGY-3 Pager [phone], M1-S2 Service CARDIOLOGY STAFF NOTE I have personally interviewed and examined the patient and reviewed appropriate data, including labs, ECGs and other diagnostic studies. I agree with the principal findings documented above. The assessment and plan were formulated in discussion with me. Armond Denny MD, [facility] Staff Lawn Specialist underground utility locator * Armond Denny MD - 07/02/2024 6:17 AM EDT Inpatient Cardiology Progress Note Patient Name: Brian Rodriguez Date of Admission: 06/30/2024 ( Hospital Day 2 days ) Service: S2 ID: Brian Rodriguez is a 74 y.o. male with PMHx of HTN, HLD, migraines, DM2, and UC who presented [facility] for chest pain and was transferred to [facility] for NSTEMI found to have HFrEF. Active [...] 1809 PROBNP 2,259* Trops: OSH 4143 >20,000>> [facility] 1234 and 1274 06/30 Telemetry: some PVCs [...] to exclude urinary tract infection. Cardiac Catheterization: ([facility]) RIGHT dominance LVEDP 10 Artery Lesion Intervention [...] DM2, and UC who was transferred to [facility] for NSTEMI and now found to have [...] 7.3. Will need outpatient follow up for longterm changes. - holding home glipizide and metformin [...] Ronel Hensley MD Internal Medicine PGY-1 Pager [phone], M1-S2 Service CARDIOLOGY STAFF NOTE I have personally interviewed and examined the patient and reviewed appropriate data, including labs, ECGs and other diagnostic studies. I agree with the principal findings documented above. The assessment and plan were formulated in discussion with me. Armond Denny MD, [facility] Staff Lawn Specialist underground utility locator * Armond Denny MD - 07/01/2024 6:15 AM EDT Inpatient Cardiology Progress Note Patient Name: Brian Rodriguez Date of Admission: 06/30/2024 ( Hospital Day 1 day ) Service: S2 ID: Brian Rodriguez is a 74 y.o. male with PMHx of HTN, HLD, migraines, DM2, and UC who presented [facility] for chest pain and was transferred to [facility] for NSTEMI found to have HFrEF. Active Problems: Active Hospital Problems Diagnosis NSTEMI (non-ST elevated myocardial infarction) Resolved Hospital Problems No resolved problems to display. 24 hr events: Yesterday - transferred to [facility] for NSTEMI Overnight - no acute events [...] 1809 PROBNP 2,259* Trops: OSH 4143 >20,000>> [facility] 1234 and 1274 last night Telemetry: NSR [...] DM2, and UC who was transferred to [facility] for NSTEMI and now found to have [...] 7.3. Will need outpatient follow up for ad terminal makeup operator changes. - holding home glipizide and metformin [...] Ronel Hensley MD Internal Medicine PGY-1 Pager [phone], M1-S2 Service CARDIOLOGY STAFF NOTE I have personally interviewed and examined the patient and reviewed appropriate data, including labs, ECGs and other diagnostic studies. I agree with the principal findings documented above. The assessment and plan were formulated in discussion with me. Plan for cath today and introduction of full complement of medical therapies for ACS/HFrEF. Armond Denny MD, [facility] Staff Lawn Specialist underground utility locator documented in this encounter H&P Notes * Lynette Díazsera Woodard, DEVULCANIZER OPERATOR - 07/01/2024 9:33 AM EDT Images [...] PCP: Deacon Watters APRN PCP phone #: [phone] ID/Chief Complaint: Brian Rodriguez is a 74 y.o. male with PMHx of HTN, HLD, migraines, DM2, and UC who presented to [facility] for chest pain and was transferred to [facility] for NSTEMI. History of Present Illness: Brian [...] infarction) Ulcerative colitis Colonoscopy 04/08/10 (Dr. Gomes [facility]) - inflammation only within the rectum and sigmoid; extent of the exam was to the hepatic flexure; biopsies proximal to the sigmoid nl Repeat exam 11/27/11 ([facility]): mildly active colitis [...] ascending colon. Several HPs and one TA. [place] 03/2022 - [place] 1 limited to rectosigmoid, [...] in the last 7068 hours. Invalid input(s): [id number] Heme: No results for input(s): LDH, HAPTOGLOBIN, [...] DM2, and UC who was transferred to [facility] for NSTEMI. Given Brian's presentation and his [...] Admit to Cardiology, S2 Team Pager # [phone] #NSTEMI > trops elevated to 4143 and 20,000 at OSH - s/p ASA and Plavix load - heparin gtt - continue 81 mg ASA - continue 75 mg plavix - repeat EKG with posterior leads - restarted atorvastatin 80 mg - TTE pending - trending trops here - NPO at midnight for [facility] tomorrow #Migraines - holding propranolol for now, [...] Operative Note Patient Name: Brian Rodriguez : [id number] MR#: [id number] Case Date: 07/01/2024 Surgeon: Surgeons and Role: [...] 07/01/2024 12:11 PM EDT Brian completed a [place] Advanced directive and stated that if he [...] surrogate would be surrogate decision maker per [place] surrogate decision making law. (Only good for 180 days) Any patient receiving care in [place] must abide by [place] law. The hierarchy for surrogate decision making [...] (i) The agent with financial power of supervisor cell efficiency or a conservator appointed in accordance with [...] homeless or living in a retirement (including now)?: No In the past 12 [...] Current DME: none Home Address confirmed as: [address] [place] [id number] Social & Family Supports: All names listed below confirmed with patient as current and correct Extended Emergency Contact Information Primary Emergency Contact: Sabrina Eisenberg Address: [address] [place] [phone] [facility] Relation: Child Secondary Emergency Contact: Enrique [...] Yes ; Prescription Coverage: Yes Preferred Pharmacy: [facility] - [facility], [place] - [address] [facility] [address] [facility] [place] [address] Status: Patient is a : No Primary Care Provider confirmed: Deacon Watters, JAZMINE [phone] Potential Needs for Transition of Care: none [...] Office [place] [address] Dion Osullivan MD [facility] [place] [address] 09/01/2024 9:40 AM EDT Office Visit Cardiology at [address] [phone] Franky Shaver MD [facility] [place] [address] 09/01/2024 11:20 AM EDT Office Visit Dermatology at [place] [address] [place] [phone] Gómez Mercer MD [facility] [place] [address] 09/21/2024 2:45 PM EDT Office Visit Pain [place] [phone] Trung Hoyos MD [facility] [place] [address] Scheduled Referrals Name Type Priority Associated Diagnoses [...] PM EDT URINALYSIS BEAKER MICROSCPIC REFLEX EXAM ([facility]) Routine 07/03/2024 3:02 PM EDT URINALYSIS [...] - 199 mg/dL 07/04/2024 2:12 PM EDT [facility] Comment:Supplemental ranges: <140 mg/dL before meals <180 mg/dL all other times of the day. Blood CAPILLARY BLOOD / Unknown 07/04/2024 1:49 PM EDT 07/04/2024 2:12 PM EDT Armond Denny MD POINT OF CARE TEST O CEE Performing Organization Address City/[facility]/ZIP Co de Phone Number [facility] [place] [address] * (ABNORMAL) POC, GLUCOSE (07/04/2024 11:55 AM EDT) Glucometer, POC 287(H) 65 - 199 mg/dL 07/04/2024 11:55 AM EDT [facility] Comment:Supplemental ranges: <140 mg/dL before meals <180 mg/dL all other times of the day. Blood CAPILLARY BLOOD / Unknown 07/04/2024 11:55 AM EDT 07/04/2024 11:55 AM EDT Armond Denny MD POINT OF CARE TEST O RDERAOMAR Performing Organization Address City/[facility]/ZIP Co de Phone Number [facility] [place] [address] * (ABNORMAL) POC, GLUCOSE (07/04/2024 11:18 AM EDT) Glucometer, POC 259(H) 65 - 199 mg/dL 07/04/2024 11:32 AM EDT [facility] Comment:Supplemental ranges: <140 mg/dL before meals <180 mg/dL all other times of the day. Blood CAPILLARY BLOOD / Unknown 07/04/2024 11:18 AM EDT 07/04/2024 11:32 AM EDT Armond Denny MD POINT OF CARE TEST O RDERABLES Performing Organization Address City/[facility]/ZIP Co de Phone Number [facility] [place] [address] * POC, GLUCOSE (07/04/2024 8:04 AM EDT) Glucometer, POC 111 65 - 199 mg/dL 07/04/2024 8:04 AM EDT [facility] Comment:Supplemental ranges: <140 mg/dL before meals <180 mg/dL all other times of the day. Blood CAPILLARY BLOOD / Unknown 07/04/2024 8:04 AM EDT 07/04/2024 8:04 AM EDT Armond Denny MD POINT OF CARE TEST O RDERABLES Performing Organization Address [facility] Co de Phone Number [facility] [place] [address] * Magnesium (07/04/2024 1:43 AM EDT) Magnesium 0.80 0.69 - 1.07 mMol/L 07/04/2024 2:23 AM EDT [facility] Blood VENOUS BLOOD SPECIMEN / Unknown IP Care Team Draw / Unknown 07/04/2024 1:43 AM EDT 07/04/2024 1:52 AM EDT Triston Godinez MD CHEMISTRY ORDERABLES Performing Organization Address City/[facility]/ZIP Co de Phone Number [facility] [place] [address] * (ABNORMAL) Basic Metabolic Panel (07/04/2024 1:43 [...] AM EDT Triston Godinez MD CHEMISTRY ORDERABLES [facility] [place] [address] * (ABNORMAL) CBC (with Diff) (07/04/2024 1:43 AM EDT) White Blood Cell 5.05 4.00 - 9.50 x10(3)/mc L 07/04/2024 2:00 AM EDT [facility] Red Blood Cell 3.11(L) 4.58 - 5.54 x10(6)/mc L 07/04/2024 2:00 AM EDT [facility] Hemoglobin 10.5(L) 13.7 - 16.5 g/dL 07/04/2024 2:00 AM EDT [facility] Hematocrit 31.5(L) 40.5 - 48.5 % 07/04/2024 2:00 AM EDT [facility] Mean Cell Volume 101.3(H) 82.9 - 93.1 fL 07/04/2024 2:00 AM EDT [facility] Mean Cell Hemoglobin 33.8(H) 27.5 - 32.1 pg 07/04/2024 2:00 AM EDT [facility] Mean Cell Hemoglobin Concentration 33.3 32.0 - 35.7 g/dL 07/04/2024 2:00 AM EDT [facility] Platelet 145 145 - 357 x10(3)/mc L 07/04/2024 2:00 AM EDT [facility] Mean Platelet Volume 11.5 7.6 - 12.9 fL 07/04/2024 2:00 AM EDT [facility] RDW Standard Deviation 48.2(H) 36.0 - 45.0 fL 07/04/2024 2:00 AM EDT [facility] RDW coefficient of variation 13.1 11.4 - 13.8 % 07/04/2024 2:00 [facility] NRBC% auto 0.0 % 07/04/2024 [...] MD HEMATOLOGY ORDERABLE S Performing Organization Address [facility] Co de Phone Number [facility] [place] [address] * (ABNORMAL) POC, GLUCOSE (07/03/2024 8:02 PM EDT) Glucometer, POC 251(H) 65 - 199 mg/dL 07/03/2024 8:02 PM EDT [facility] Comment:Supplemental ranges: <140 mg/dL before meals <180 mg/dL all other times of the day. Blood CAPILLARY BLOOD / Unknown 07/03/2024 8:02 PM EDT 07/03/2024 8:02 PM EDT Armond Denny MD POINT OF CARE TEST O CEE Performing Organization Address [facility] Co de Phone Number [facility] [place] [address] * (ABNORMAL) POC, GLUCOSE (07/03/2024 4:47 PM EDT) Glucometer, POC 217(H) 65 - 199 mg/dL 07/03/2024 4:47 PM EDT [facility] Comment:Supplemental ranges: <140 mg/dL before meals <180 mg/dL all other times of the day. Blood CAPILLARY BLOOD / Unknown 07/03/2024 4:47 PM EDT 07/03/2024 4:47 PM EDT Armond Denny MD POINT OF CARE TEST O CEE Performing Organization Address [facility] Co de Phone Number [facility] [place] [address] * (ABNORMAL) Urine culture (07/03/2024 3:02 PM EDT) Urine Culture 50,000-99,000 cfu/ml Escherichia coli(A) VITEK 2 METHOD 07/05/2024 8:01 AM EDT [facility] Urine Culture 10,000-49,000 cfu/ml mixed mucosal harika VITEK 2 METHOD 07/05/2024 8:01 AM EDT [facility] Urine URINE SPECIMEN OBTAINED [...] ug/ml: Sensitive Armond Denny MD MICROBIOLOGY - [facility] AL ORDERABLES [facility] [place] [address] * (ABNORMAL) Urinalysis Microscopic Reflex to Culture (07/03/2024 3:02 PM EDT) RBC, Urine 2 0 - 3 /HPF 07/03/2024 3:40 PM EDT [facility] WBC, Urine 55(H) 0 - 3 /HPF 07/03/2024 3:40 PM EDT [facility] Squamous Epithelial Cells, Urine 1 0 - 5 /HPF 07/03/2024 3:40 PM EDT [facility] Hyaline Casts, Urine 3(H) 0 - 2 /LPF 07/03/2024 3:40 PM EDT [facility] Comment 07/03/2024 3:40 PM EDT [facility] Comment:Interpret results wi th caution, microscopic results are from a suboptimal specimen. Bacteria, Urine Many(A) None /HPF 3:40 PM EDT [facility] Urine URINE SPECIMEN OBTAINED BY CLEAN CATCH PROCEDURE / Unknown Non Blood Collection / Unknown 07/03/2024 3:02 PM EDT 07/03/2024 3:13 PM EDT Armond Denny MD URINE ORDERABLES Performing Organization Address City/[facility]/ZIP Co de Phone Number [facility] [place] [address] * Urinalysis Microscopic with Reflex to Culture (07/03/2024 3:02 PM EDT) Urine URINE SPECIMEN OBTAINED BY CLEAN CATCH PROCEDURE / Unknown Non Blood Collection / Unknown 07/03/2024 3:02 PM EDT 07/03/2024 3:13 PM EDT Armond Denny MD URINE ORDERABLES Performing Organization Address [facility]/ZIP Co de Phone Number [facility] [place] [address] * (ABNORMAL) Urinalysis with reflex Culture (07/03/2024 3:02 PM EDT) Glucose, Urine Dipstick Negative Negative 07/03/2024 3:40 PM EDT [facility] Protein, Urine Dipstick 30 mg/dL(A) Negative 07/03/2024 3:40 PM EDT [facility] Bilirubin, Urine Dipstick Small(A) Negative 07/03/2024 3:40 PM EDT [facility] Comment:Clinical correlation required for positive Urine Bilirubin results as false positive may occur with some drugs and drug related products. If a false positive is suspected a serum total bilirubin should be considered if clinically indicated. Urobilinogen, Urine Dipstick Normal Normal, 0.2 mg/dL, 1.0 mg/dL 07/03/2024 3:40 PM EDT [facility] pH, Urine (dipstick) 5.5 5.0 - 8.0 07/03/2024 3:40 PM EDT [facility] Blood, Urine Dipstick Negative Negative 07/03/2024 3:40 PM EDT [facility] Ketone, Urine Dipstick Trace(A) Negative 07/03/2024 3:40 PM EDT [facility] Nitrite, Urine Dipstick Positive(A) Negative 07/03/2024 3:40 PM EDT [facility] Leukocytes, Urine Dipstick Moderate(A) Negative 07/03/2024 3:40 PM EDT [facility] Specific [place] Urine Automated 1.024 1.005 - 1.030 07/03/2024 3:40 PM EDT [facility] Appearance, Urine Dipstick Cloudy(A) Clear 07/03/2024 3:40 PM EDT [facility] Color, Urine Dipstick Dark Yellow Yellow, Dark Yellow 07/03/2024 3:40 PM EDT [facility] Urine URINE SPECIMEN OBTAINED BY CLEAN CATCH PROCEDURE / Unknown Non Blood Collection / Unknown 07/03/2024 3:02 PM EDT 07/03/2024 3:13 PM EDT Armond Denny MD URINE ORDERABLES [facility] [place] [address] * POC, GLUCOSE (07/03/2024 11:21 AM EDT) [facility] Signature Glucometer, POC 177 65 - 199 mg/dL 07/03/2024 11:21 AM EDT [facility] Comment:Supplemental ranges: <140 mg/dL before meals <180 mg/dL all other times of the day. Blood CAPILLARY BLOOD / Unknown 07/03/2024 11:21 AM EDT 07/03/2024 11:21 AM EDT Armond Denny MD POINT OF CARE TEST O RDERABLES Performing Organization Address City/[facility]/ZIP Co de Phone Number [facility] [place] [address] * POC, GLUCOSE (07/03/2024 7:24 AM EDT) Glucometer, POC 124 65 - 199 mg/dL 07/03/2024 7:24 AM EDT [facility] Comment:Supplemental ranges: <140 mg/dL before meals <180 mg/dL all other times of the day. Blood CAPILLARY BLOOD / Unknown 07/03/2024 7:24 AM EDT 07/03/2024 7:24 AM EDT Armond Denny MD POINT OF CARE TEST O RDERABLES Performing Organization Address [facility]/ZIP Co de Phone Number [facility] [place] [address] * Magnesium (07/03/2024 4:02 AM EDT) Magnesium 0.86 0.69 - 1.07 mMol/L 07/03/2024 4:41 AM EDT [facility] Blood VENOUS BLOOD SPECIMEN / Unknown IP Care Team Draw / Unknown 07/03/2024 4:02 AM EDT 07/03/2024 4:07 AM EDT Triston Godinez MD CHEMISTRY ORDERABLES Performing Organization Address City/[facility]/ZIP Co de Phone Number [facility] [place] [address] * Basic Metabolic Panel (07/03/2024 4:02 AM [...] AM EDT Triston Godinez MD CHEMISTRY ORDERABLES [facility] [place] [address] * (ABNORMAL) CBC (with Diff) (07/03/2024 4:02 AM EDT) White Blood Cell 5.90 4.00 - 9.50 x10(3)/mc L 07/03/2024 4:13 AM EDT [facility] Red Blood Cell 3.27(L) 4.58 - 5.54 x10(6)/mc L 07/03/2024 4:13 AM EDT [facility] Hemoglobin 11.0(L) 13.7 - 16.5 g/dL 07/03/2024 4:13 AM [facility] Hematocrit 33.1(L) 40.5 - 48.5 % 07/03/2024 4:13 AM EDT [facility] Mean Cell Volume 101.2(H) 82.9 - 93.1 fL 07/03/2024 4:13 AM [facility] Mean Cell Hemoglobin 33.6(H) 27.5 - 32.1 pg 07/03/2024 4:13 AM [facility] Mean Cell Hemoglobin Concentration 33.2 32.0 - 35.7 g/dL 07/03/2024 4:13 AM [facility] Platelet 156 145 - 357 x10(3)/mc L 07/03/2024 4:13 AM EDT [facility] Mean Platelet Volume 11.3 7.6 - 12.9 fL 07/03/2024 4:13 AM [facility] RDW Standard Deviation 47.5(H) 36.0 - 45.0 fL 07/03/2024 4:13 AM [facility] RDW coefficient of variation 12.7 11.4 - 13.8 % 07/03/2024 4:13 AM [facility] NRBC% auto 0.0 % 07/03/2024 [...] EDT Triston Godinez MD HEMATOLOGY ORDERABLE S [facility] [place] [address] * (ABNORMAL) POC, GLUCOSE (07/02/2024 8:45 PM EDT) Glucometer, POC 271(H) 65 - 199 mg/dL 07/02/2024 8:46 PM EDT [facility] Comment:Supplemental ranges: <140 mg/dL before meals <180 mg/dL all other times of the day. Blood CAPILLARY BLOOD / Unknown 07/02/2024 8:45 PM EDT 07/02/2024 8:46 PM EDT Armond Denny MD POINT OF CARE TEST O RDERABLES Performing Organization Address City/[facility]/ZIP Co de Phone Number [facility] [place] [address] * (ABNORMAL) POC, GLUCOSE (07/02/2024 4:18 PM EDT) Glucometer, POC 213(H) 65 - 199 mg/dL 07/02/2024 4:19 PM EDT [facility] Comment:Supplemental ranges: <140 mg/dL before meals <180 mg/dL all other times of the day. Blood CAPILLARY BLOOD / Unknown 07/02/2024 4:18 PM EDT 07/02/2024 4:19 PM EDT Armond Denny MD POINT OF CARE TEST O RDERAOMAR [facility] [place] [address] * (ABNORMAL) POC, GLUCOSE (07/02/2024 11:21 AM EDT) Glucometer, POC 234(H) 65 - 199 mg/dL 07/02/2024 11:21 AM EDT [facility] Comment:Supplemental ranges: <140 mg/dL before meals <180 mg/dL all other times of the day. Blood CAPILLARY BLOOD / Unknown 07/02/2024 11:21 AM EDT 07/02/2024 11:21 AM EDT Armond Denny MD POINT OF CARE TEST O RDERABLES Performing Organization Address City/[facility]/ZIP Co de Phone Number [facility] [place] [place] [address] * POC, GLUCOSE (07/02/2024 7:28 AM EDT) Glucometer, POC 171 65 - 199 mg/dL 07/02/2024 7:28 AM EDT [facility] Comment:Supplemental ranges: <140 mg/dL before meals <180 mg/dL all other times of the day. Blood CAPILLARY BLOOD / Unknown 07/02/2024 7:28 AM EDT 07/02/2024 7:28 AM EDT Armond Denny MD POINT OF CARE TEST O RDERABLES Performing Organization Address [facility]/ZIP Co de Phone Number [facility] [place] [address] * Magnesium (07/02/2024 7:12 AM EDT) Magnesium 0.89 0.69 - 1.07 mMol/L 07/02/2024 8:09 AM EDT [facility] Blood VENOUS BLOOD SPECIMEN / Unknown IP Care Team Draw / Unknown 07/02/2024 7:12 AM EDT 07/02/2024 7:19 AM EDT Triston Godinez MD CHEMISTRY ORDERABLES Performing Organization Address City/[facility]/ZIP Co de Phone Number [facility] [place] [address] * Basic Metabolic Panel (07/02/2024 7:12 AM [...] AM EDT Triston Godinez MD CHEMISTRY ORDERABLES [facility] [place] [address] * (ABNORMAL) CBC (with Diff) (07/02/2024 7:12 AM EDT) White Blood Cell 5.99 4.00 - 9.50 x10(3)/mc L 07/02/2024 7:41 AM EDT [facility] Red Blood Cell 3.36(L) 4.58 - 5.54 x10(6)/mc L 07/02/2024 7:41 AM EDT [facility] Hemoglobin 11.3(L) 13.7 - 16.5 g/dL 07/02/2024 7:41 AM [facility] Hematocrit 34.3(L) 40.5 - 48.5 % 07/02/2024 7:41 AM EDT [facility] Mean Cell Volume 102.1(H) 82.9 - 93.1 fL 07/02/2024 7:41 AM [facility] Mean Cell Hemoglobin 33.6(H) 27.5 - 32.1 pg 07/02/2024 7:41 AM [facility] Mean Cell Hemoglobin Concentration 32.9 32.0 - 35.7 g/dL 07/02/2024 7:41 AM [facility] Platelet 155 145 - 357 [...] Triston Godinez MD HEMATOLOGY ORDERABLE S [facility] [place] [address] * CT Abdomen & Pelvis w Contrast (07/02/2024 3:13 AM EDT) WORKSTATION ID [id number] RAD Anatomical Region Laterality Modality Abdomen, Pelvis [...] who have questions please contact the health acute care physical therapist that requested your imaging first. ? Narrative [...] patients who have questions please contactthe health acute care physical therapist that requested your imaging first. Triston Godinez MD IMG CT ORDERABLES * POC, GLUCOSE (07/01/2024 7:58 PM EDT) Glucometer, POC 84 65 - 199 mg/dL 07/01/2024 7:59 PM EDT [facility] Comment:Supplemental ranges: <140 mg/dL before meals <180 mg/dL all other times of the day. Blood CAPILLARY BLOOD / Unknown 07/01/2024 7:58 PM EDT 07/01/2024 7:59 PM EDT Armond Denny MD POINT OF CARE TEST O CEE Performing Organization Address City/[facility]/ZIP Co de Phone Number [facility] [place] [address] * POC, GLUCOSE (07/01/2024 6:41 PM EDT) Glucometer, POC 91 65 - 199 mg/dL 07/01/2024 6:41 PM EDT [facility] Comment:Supplemental ranges: <140 mg/dL before meals <180 mg/dL all other times of the day. Blood CAPILLARY BLOOD / Unknown 07/01/2024 6:41 PM EDT 07/01/2024 6:41 PM EDT Armond Denny MD POINT OF CARE TEST O CEE Performing Organization Address [facility] Co de Phone Number [facility] [place] [address] * EKG 12 Lead (07/01/2024 5:24 PM EDT) Ventricular rate 77 BPM MUSE SYSTEM Atrial Rate 77 BPM MUSE SYSTEM P-R Interval 178 ms MUSE SYSTEM QRS Duration 138 ms MUSE SYSTEM Q-T Interval 418 ms MUSE SYSTEM QTC Calculated (Bezet) 473 ms MUSE SYSTEM Calculated P [place] 63 degrees MUSE SYSTEM Calculated R [place] 87 degrees MUSE SYSTEM Calculated T [place] 8 degrees MUSE SYSTEM INTERPRETATION Normal sinus [...] Modality Other Narrative 07/01/2024 7:47 PM EDT ?[facility] ? Cardiac Catheterization/Intervention Report ? Patient Name: Rodriguez, Brian Jyoa. ? Procedure Date: 07/01/2024 ? A #: [id number] ? Primary Physician: Lizzette Hayden ? Case #: [id number] ? File Name: [id number] ? Catheterization Order Number: [id number] ? [facility] ? Final Report [place], [place] ? Patient Name: ? Brian M. Rodriguez ?ID#: ?[id number] ? : ?1950 ? Procedure Date: ? July 01, 2024 ? Case #: ? [id number] ? Room: ? 5 ? Case Physician: [...] procedure was Urgent. The indication for ?the scientific laboratory supervisor visit is ACS less than or equal [...] ? A premounted 2.75 x 22 mm Augusta Kidder (EILEEN) was deployed ? with a maximum [...] dose administered prior to arrival in the scientific laboratory supervisor. ?Recommended anti-platelet/anti-thrombotic regimen: ?Continue aspirin 81 mg daily. ?Continue clopidogrel 75 mg daily. ?These recommendations are made at the time of the intervention. Patient ?and provider preferences or a changing clinical situation may require ?modification of this regimen. Consult [facility] Interventional Cardiology for ?questions. ?This [...] against any medical treatment. Consult ?http://tools.acc.org/DAPTriskapp/#!/content/calculator/ or [facility] ?Interventional Cardiology for questions ? [...] Procedure Note Lizzette Hayden MD - 07/14/2024 [facility] Cardiac Catheterization/Intervention Report Patient Name: Rodriguez, Brian M. Procedure Date: 07/01/2024 A #: [id number] Primary Physician: Lizzette Hayden Case #: [id number] File Name: [id number] Catheterization Order Number: [id number] [facility] FinalReport [place], [place] Patient Name: Brian Rodriguez ID#:[id number] :1950 Procedure Date: July 01, 2024 Case [...] diagnostic procedure was Urgent. The indicationfor the scientific laboratory supervisor visit is ACS less than or equal [...] time was 37.0 minutes, dose area product ssz898.00 Gy/cm2 and air kerma was 1,874 mGY. [...] The priority for the procedure was Urgent.The [facility] indication for the procedure was NSTE-ACS. [...] The lesion was predilated with a 2.50mm [id number] MM balloon with a maximum inflation pressure of 14atmospheres. A premounted 2.75 x 22 mm Augusta Kidder (EILEEN) wasdeployed with a maximum inflation pressure [...] dose administered prior to arrival in the scientific laboratory supervisor. Recommended anti-platelet/anti-thrombotic regimen: Continue aspirin 81 mg daily. Continue clopidogrel 75 mg daily. These recommendations are made at the time of the intervention.Patient and provider preferences or a changing clinical situation mayrequire modification of this regimen. Consult [facility] Interventional Cardiologyfor questions. This patient [...] or against any medical treatment.Consult http://tools.acc.org/DAPTriskapp/#!/content/calculator/ or [facility] Interventional Cardiology for questions Conclusions: [...] - 199 mg/dL 07/01/2024 11:35 AM EDT [facility] Comment:Supplemental ranges: <140 mg/dL before meals <180 mg/dL all other times of the day. Blood CAPILLARY BLOOD / Unknown 07/01/2024 11:35 AM EDT 07/01/2024 11:35 AM EDT Armond Denny MD POINT OF CARE TEST O RDERABLES [facility] [place] [address] * (ABNORMAL) Hemogram (07/01/2024 10:32 AM EDT) White Blood Cell 7.02 4.00 - 9.50 x10(3)/mc L 07/01/2024 11:20 AM EDT [facility] Red Blood Cell 3.68(L) 4.58 - 5.54 x10(6)/mc L 07/01/2024 11:20 AM EDT [facility] Hemoglobin 12.2(L) 13.7 [...] EDT Armond Denny MD HEMATOLOGY ORDERABLE S [facility] [place] [address] * Heparin (unfractionated) Level (07/01/2024 10:32 AM EDT) UF Heparin 0.31 IU/mL 07/01/2024 11:25 AM EDT [facility] Comment: Heparin (anti-Xa) levels [...] MD HEMATOLOGY ORDERABLE S Performing Organization Address [facility] Co de Phone Number [facility] [place] [address] * POC, GLUCOSE (07/01/2024 7:18 AM EDT) [facility] Signature Glucometer, POC 105 65 - 199 mg/dL 07/01/2024 7:19 AM EDT [facility] Comment:Supplemental ranges: <140 mg/dL before meals <180 mg/dL all other times of the day. Blood CAPILLARY BLOOD / Unknown 07/01/2024 7:18 AM EDT 07/01/2024 7:19 AM EDT Triston Godinez MD POINT OF CARE TEST O RDERABLES Performing Organization Address City/[facility] Co de Phone Number [facility] [place] [address] * Heparin (unfractionated) Level (07/01/2024 3:15 AM EDT) Pathologist [facility] UF Heparin 0.36 IU/mL 07/01/2024 4:23 AM EDT [facility] Comment: Heparin (anti-Xa) levels [...] EDT Triston Godinez MD HEMATOLOGY ORDERABLE S [facility] [place] [address] * (ABNORMAL) CBC (with Diff) (07/01/2024 3:15 AM EDT) Pathologist [facility] White Blood Cell 5.82 4.00 - 9.50 x10(3)/mc L 07/01/2024 3:54 AM EDT [facility] Red Blood Cell 3.60(L) 4.58 - 5.54 x10(6)/mc L 07/01/2024 3:54 AM EDT [facility] Hemoglobin 11.9(L) 13.7 - 16.5 g/dL [...] % 9.6 % 07/01/2024 3:54 AM EDT [facility] Monocyte Absolute 0.56 0.30 - 0.90 x10(3)/mc L 07/01/2024 3:54 AM EDT [facility] Eos % 2.6 % 07/01/2024 3:54 AM EDT [facility] Eos Absolute 0.15 0.00 - 0.40 x10(3)/mc L 07/01/2024 3:54 AM EDT [facility] Basophil % 0.5 % 07/01/2024 3:54 AM EDT [facility] Baso Absolute 0.03 0.00 - 0.10 x10(3)/mc L 07/01/2024 3:54 AM EDT [facility] Immature Gran % 0.3 % 3:54 AM EDT [facility] Immature Gran Absolute 0.02 0.00 - 0.04 x10(3)/mc L 07/01/2024 3:54 AM EDT [facility] Blood VENOUS BLOOD SPECIMEN / Unknown IP Care Team Draw / Unknown 07/01/2024 3:15 AM EDT 07/01/2024 3:37 AM EDT Triston Godinez MD HEMATOLOGY ORDERABLE S [facility] [place] [address] * Magnesium (06/30/2024 11:25 PM EDT) Magnesium 0.84 0.69 - 1.07 mMol/L 07/01/2024 12:14 AM EDT [facility] Blood VENOUS BLOOD SPECIMEN / Unknown IP Care Team Draw / Unknown 06/30/2024 11:25 PM EDT 06/30/2024 11:47 PM EDT Triston Godinez MD CHEMISTRY ORDERABLES [facility] [place] [address] * (ABNORMAL) Basic Metabolic Panel (06/30/2024 11:25 [...] Foundation Fasting Status 07/01/2024 12:14 AM EDT [facility] Blood VENOUS BLOOD SPECIMEN / Unknown IP Care Team Draw / Unknown 06/30/2024 11:25 PM EDT 06/30/2024 11:47 PM EDT Triston Godinez MD CHEMISTRY ORDERABLES [facility] [place] [address] * (ABNORMAL) Troponin-T, Yuriy Sensitivity 3 Hour (06/30/2024 11:25 PM EDT) Pathologist [facility] Troponin-T, High Sensitivity 1,274(H) <=22 ng/L 07/01/2024 12:14 AM EDT [facility] Comment: This patient's troponin [...] value can be found in the [facility] Laboratory Test Catalog Troponin - [email or web address]/565/files/39679 Reference: Fourth [place] Definition of Myocardial Infarction. Journal of the [place] [employer] 2018;72:8633-3196 Troponin-T, HS 3 hr delta 65 ng/L 07/01/2024 12:14 AM EDT [facility] Comment:The 3 hour Troponin T delta value is the absolute difference between the Troponin T concentrations of the initial and subsequent sample collected between 2 h: 45 min and 6 h following the initial collection Blood VENOUS BLOOD SPECIMEN / Unknown IP Care Team Draw / Unknown 06/30/2024 11:25 PM EDT 06/30/2024 11:47 PM EDT Triston Godinez MD CHEMISTRY ORDERABLES [facility] [place] [address] * (ABNORMAL) Troponin-T, High Sensitivity 1 Hour (06/30/2024 8:22 PM EDT) [facility] Troponin-T, High Sensitivity 1,234(H) <=22 ng/L 06/30/2024 9:22 PM EDT [facility] Comment: This patient's troponin [...] value can be found in the [facility] Laboratory Test Catalog Troponin - https://[email or web address]/catalogs/565/files/19681 Reference: Fourth [place] Definition of Myocardial Infarction. Journal of the [place] College [employer] 2018;72:7467-2759 Troponin-T, HS 1 hr delta 06/30/2024 9:22 PM EDT [facility] Comment:Delta troponin value not calculated, sample collected outside of delta calculation time limit. Blood VENOUS BLOOD SPECIMEN / Unknown Venipuncture / Unknown 06/30/2024 8:22 PM EDT 06/30/2024 8:40 PM EDT Triston Godinez MD CHEMISTRY ORDERABLES Performing Organization Address [facility]/ZIP Co de Phone Number [facility] [place] [address] * POC, GLUCOSE (06/30/2024 7:56 PM EDT) Glucometer, POC 144 65 - 199 mg/dL 06/30/2024 7:57 PM EDT [facility] Comment:Supplemental ranges: <140 mg/dL before meals <180 mg/dL all other times of the day. Blood CAPILLARY BLOOD / Unknown 06/30/2024 7:56 PM EDT 06/30/2024 7:57 PM EDT Triston Godinez MD POINT OF CARE TEST O RDERABLES Performing Organization Address [facility]/ZIP Co de Phone Number [facility] [place] [address] * XR Abdomen Flat & Upright (06/30/2024 6:56 PM EDT) WORKSTATION ID [id number] RAD Anatomical Region Laterality Modality Abdomen N/A Digital Radiogra phy Impressions 06/30/2024 9:12 PM EDT No obstruction or perforation. Thank you for letting us participate in the care of this patient. ??If you are a health care provider and have any questions regarding this report, please contact the number below. ??For patients who have questions please contact the health acute care physical therapist that requested your imaging first. ? Electronically signed by: Shireen Hurtado MD, [facility] ([phone]), at 06/30/2024 9:12 PM Narrative 06/30/2024 9:12 [...] patients who have questions please contactthe health acute care physical therapist that requested your imaging first. Electronically signed by: Shireen Hurtado MD, [facility]([phone]), at 06/30/2024 9:12 PM Triston Godinez MD IMG DX ORDERABLES * (ABNORMAL) Troponin-T, High Sensitivity (06/30/2024 6:09 PM EDT) [facility] Troponin-T, High Sensitivity Initial 1,209([facility] ) <=22 ng/L 06/30/2024 7:23 PM EDT [facility] Comment: This patient's troponin [...] value can be found in the [facility] Laboratory Test Catalog Troponin - https://one-.testcatalog.org/catalogs/565/files/05810 Reference: Fourth [place] Definition of Myocardial Infarction. Journal of the [place] College of [employer]iology 2018;72:5131-9220 Blood VENOUS BLOOD SPECIMEN / Unknown Venipuncture / Unknown 06/30/2024 6:09 PM EDT 06/30/2024 6:18 PM EDT Triston Godinez MD CHEMISTRY ORDERABLES [facility] [place] [address] * (ABNORMAL) Basic Metabolic Panel (06/30/2024 6:09 PM EDT) Glucose 06/30/2024 8:08 PM EDT [facility] Comment:Insufficient sample. Informed Alli Meyers at 20:07, 06.30.2024. Blood Urea Nitrogen 10 10 - 20 mg/dL 06/30/2024 8:08 PM EDT [facility] Creatinine 0.98 0.80 - 1.50 mg/dL 06/30/2024 8:08 PM EDT [facility] Sodium 140 135 - 145 mMol/L 06/30/2024 8[facility] Potassium 4.2 3.5 - 5.0 mMol/L 06/30/2024 8:08 [facility] Chloride 105 98 - 107 mMol/L 06/30/2024 8:08 [facility] Carbon Dioxide 21(L) 22 - 31 mMol/L 06/30/2024 8:08 PM EDT [facility] Anion Gap 14 5 - 15 mMol/L 06/30/2024 8:08 [facility] Calcium 06/30/2024 8:08 PM [facility] Comment:Insufficient sample. Informed Alli Vanasse at 20:07, 06.30.2024. Est Glomerular Filtration Rate - Male 80 mL/min/1. 73 m?? 06/30/2024 8:08 PM EDT [facility] Comment: This patient's [...] Fasting Status Yes 06/30/2024 8:08 PM EDT [facility] Blood VENOUS BLOOD SPECIMEN / Unknown Venipuncture / Unknown 06/30/2024 6:09 PM EDT 06/30/2024 6:18 PM EDT Triston Godinez MD CHEMISTRY ORDERABLES [facility] [place] [address] * Lipid Panel (Reflex Direct LDL) (06/30/2024 6:09 PM EDT) Cholesterol, Total 197 mg/dL 06/30/2024 6:51 PM T [facility] Comment: Desirable: < 200 mg/dL Borderline High: 200 - 239 mg/dL High: > or = 240 mg/dL Triglyceride 230 mg/dL 06/30/2024 6:51 PM T [facility] Comment: Normal: <150 mg/dL [...] EDT 06/30/2024 6:18 PM EDT [facility] - 06/30/2024 6:51 PM EDT [...] ACC/AHA Guidelines (most recently Brianne et al. [facility] 08/26/22): * For individuals with atherosclerotic [...] artery disease) Triston Godinez MD CHEMISTRY ORDERABLES [facility] [place] [address] * (ABNORMAL) pro-Brain Natriuretic Peptide (06/30/2024 6:09 PM EDT) [facility] NT-proBNP 2,259(H) <=449 pg/mL 06/30/2024 6:51 PM EDT [facility] Blood VENOUS BLOOD SPECIMEN / Unknown Venipuncture / Unknown 06/30/2024 6:09 PM EDT 06/30/2024 6:18 PM EDT Triston Godinez MD CHEMISTRY ORDERABLES Performing Organization Address [facility] Co de Phone Number [facility] [place] [address] * TSH (06/30/2024 6:09 PM EDT) Pathologist [facility] Thyroid Stimulating Hormone 2.80 0.27 - 4.20 mcIU/mL 06/30/2024 6:51 PM EDT [facility] Blood VENOUS BLOOD SPECIMEN / Unknown Venipuncture / Unknown 06/30/2024 6:09 PM EDT 06/30/2024 6:18 PM EDT Triston Godinez MD CHEMISTRY ORDERABLES Performing Organization Address [facility] Co de Phone Number [facility] [place] [address] * Heparin (unfractionated) Level (06/30/2024 6:08 PM EDT) UF Heparin 0.07 IU/mL 06/30/2024 6:34 PM EDT [facility] Comment: Heparin (anti-Xa) levels [...] EDT Triston Godinez MD HEMATOLOGY ORDERABLE S [facility] [place] [address] * (ABNORMAL) CBC (with Diff) (06/30/2024 6:08 PM EDT) White Blood Cell 6.45 4.00 - 9.50 x10(3)/mc L 06/30/2024 6:36 PM EDT [facility] Red Blood Cell 3.78(L) 4.58 - 5.54 x10(6)/mc L 06/30/2024 6:36 PM EDT [facility] Hemoglobin 12.7(L) 13.7 - 16.5 g/dL 06/30/2024 6:36 PM EDT [facility] Hematocrit 38.0(L) 40.5 - 48.5 % 06/30/2024 6:36 PM EDT [facility] Mean Cell Volume 100.5(H) 82.9 - 93.1 fL 06/30/2024 6:36 PM EDT [facility] Mean Cell Hemoglobin 33.6(H) 27.5 - 32.1 pg 06/30/2024 6:36 PM EDT [facility] Mean Cell Hemoglobin Concentration 33.4 32.0 - 35.7 g/dL 06/30/2024 6:36 PM EDT [facility] Platelet 79(L) 145 - 357 x10(3)/mc L 06/30/2024 6:36 PM EDT [facility] Mean Platelet Volume 11.2 7.6 - 12.9 fL 06/30/2024 6:36 PM EDT [facility] RDW Standard Deviation 48.4(H) 36.0 - 45.0 fL 06/30/2024 6:36 PM EDT [facility] RDW coefficient of variation 13.0 11.4 - 13.8 % 06/30/2024 6:[facility] NRBC% auto 0.0 % 06/30/2024 6:36 PM EDT [facility] NRBC Absolute 0.00 0.00 - 0.00 x10(3)/mc L 06/30/2024 6:36 PM EDT [facility] Neutrophil % 71.2 % 06/30/2024 6:36 PM EDT [facility] Neutrophil Absolute 4.59 1.70 - 6.10 x10(3)/mc L 06/30/2024 6:36 PM EDT [facility] Lymph % 18.1 % 06/30/2024 6:36 PM EDT [facility] Lymph Absolute 1.17 0.90 - 3.20 x10(3)/mc L 06/30/2024 6:36 PM EDT [facility] Monocyte % 8.2 % 06/30/2024 6:36 [facility] Monocyte Absolute 0.53 0.30 - 0.90 x10(3)/mc L 06/30/2024 6:36 PM EDT [facility] Eos % 1.7 % 06/30/2024 6:36 PM EDT [facility] Eos Absolute 0.11 0.00 - 0.40 x10(3)/mc L 06/30/2024 6:36 PM EDT [facility] Basophil % 0.6 % 06/30/2024 6:36 PM EDT [facility] Baso Absolute 0.04 0.00 - 0.10 x10(3)/mc L 06/30/2024 6:36 PM EDT [facility] Immature Gran % 0.2 % 6:36 PM EDT [facility] Immature Gran Absolute 0.01 0.00 - 0.04 x10(3)/mc L 06/30/2024 6:36 PM EDT [facility] Blood VENOUS BLOOD SPECIMEN / Unknown Venipuncture / Unknown 06/30/2024 6:08 PM EDT 06/30/2024 6:18 PM EDT Triston Godinez MD HEMATOLOGY ORDERABLE S [facility] [place] [place] [address] * (ABNORMAL) Hemoglobin A1c (06/30/2024 6:08 PM EDT) Hemoglobin A1c 7.3(H) 4.3 - 5.6 % 06/30/2024 9:03 PM EDT [facility] Comment: Per ADA guidelines, [...] red blood cell turnover may not be loan representative of glycemic control. Reference Interval: 4.3 - 5.6% 5.7 - 6.4%: Consistent with prediabetes >=6.5%: Consistent with diagnosis of diabetes mellitus Estimated Average Glucose 06/30/2024 9:03 PM EDT [facility] Comment:Not Calculated. Blood VENOUS BLOOD SPECIMEN / Unknown Venipuncture / Unknown 06/30/2024 6:08 PM EDT 06/30/2024 6:18 PM EDT Narrative [facility] - 06/30/2024 9:03 PM EDT Estimated average glucose (eAG) is calculated from the equation described in: John ELLISON, Inna J, Nic R, et al. ??Translating the A1C assay into estimated average glucose values. ??Diabetes Care 2008:31(8):2954-1343. Additional resources are available on the ADA website (diabetes.org). Triston Godinez MD CHEMISTRY ORDERABLES Performing Organization Address [facility] Co de Phone Number [facility] [place] [address] * POC, GLUCOSE (06/30/2024 5:58 PM EDT) Glucometer, POC 148 65 - 199 mg/dL 06/30/2024 5:58 PM EDT [facility] Comment:Supplemental ranges: <140 mg/dL before meals <180 mg/dL all other times of the day. Blood CAPILLARY BLOOD / Unknown 06/30/2024 5:58 PM EDT 06/30/2024 5:58 PM EDT Triston Godinez MD POINT OF CARE TEST O RDERABLES Performing Organization Address [facility] Co de Phone Number [facility] [place] [address] * EKG 12 Lead (06/30/2024 5:23 PM EDT) Ventricular rate 73 BPM MUSE SYSTEM Atrial Rate 300 BPM MUSE SYSTEM QRS Duration 72 ms MUSE SYSTEM Q-T Interval 404 ms MUSE SYSTEM QTC Calculated (Bezet) 445 ms MUSE SYSTEM Calculated P [place] 71 degrees MUSE SYSTEM Calculated R [place] 65 degrees MUSE SYSTEM Calculated T [place] 30 degrees MUSE SYSTEM INTERPRETATION Normal sinus [...] Godinez MD ECG ORDERABLES Performing Organization Address [facility]/State/ZIP Co de Phone Number MUSE SYSTEM * [...] NSTEMI (non-ST elevation myocardial infarction) Exam Location: [facility]. ? Conclusions -Left ventricular systolic function is moderately reduced. The left ventricular ejection fraction is 36% by Dowd's biplane. The anterolateral and inferolateral bar[place] are akinetic. The anterior wall is hypokinetic. -Right ventricle is mildly dilated. Systolic function is normal. -No significant valve disease. -See report for additional findings. No prior study is available. Procedure Complete-[id number]. Image enhancement Optison was used for left [...] NSTEMI (non-ST elevation myocardial infarction) Exam Location: [facility]. Conclusions -Left ventricular systolic function is moderately reduced. The leftventricular ejection fraction is 36% by Dowd's biplane. The anterolateral andinferolateral [place] are akinetic. The anterior wall is hypokinetic. -Right ventricle is mildly dilated. Systolic function is normal. -No significant valve disease. -See report for additional findings. No prior study is available. Procedure Complete-[id number]. Image enhancement Optison was used for left [...] (Bezet) 460 ms MUSE SYSTEM Calculated P [place] 69 degrees MUSE SYSTEM Calculated R [place] 78 degrees MUSE SYSTEM Calculated T [place] 39 degrees MUSE SYSTEM INTERPRETATION Sinus rhythm Occasional Premature ventricular complexes Right bundle branch block Abnormal ECG No previous ECGs available Confirmed by MD Arthur, Gutierrez Boyd ([id number]) on 07/01/2024 9:55:31 AM MUSE SYSTEM 06/30/2024 3:53 PM EDT 07/01/2024 9:55 AM EDT Triston Godinez MD ECG ORDERABLES [facility]MA SYSTEM documented in this encounter Visit Diagnoses [...] Reddy RN)[id number] (Stopped - Provider: Jenny Reddy, RONY) ciprofloxacin (Cipro) tablet 500 mg 500 mg, [...] EVERY 6 HOURS SCHEDULED, First dose on [facility] 07/02/24 at 1200, Until Discontinued, Routine 1118 [...] 40 mEq, Oral, ONCE, 1 dose, On [place] 07/03/24 at 0730, potassium chloride ER particle/crystal [...] RN)1500 (Due - Provider: Iram De Jesus [facility]) tamsulosin (Flomax) capsule 0.8 mg 0.8 [...] Routine documented in this encounter Care Teams Dietetic Assistant Relationship Specialty Start Date End Date Deacon Watters, DEVULCANIZER OPERATOR [address] [place] [address] PCP - General Family Medicine 02/17/22 documented as of this encounter
--- OUTSIDE RECORDS SUMMARY | 2024-07-18 14:27 | XMS_ITS | Encounter Summary ---
Author Organization [facility] Address [facility] [place] [address] Care Team Providers Care Strapper Operator Name Role Phone Duong Deacon Wells APRN Primary Care Provider [phone] Encounter Details Date Type Department Care Team (Late st Contact Info) Description 01/20/2024 10:15 AM EST - 01/20/2024 11:00 AM EST [place] [phone] Anthony Hamlin MD [facility] [place] [address] COLONOSCOPY FLEXIBLE, WITH BX (WRVU 3.56) Social [...] occurs, please contact your Doctor. Please call [phone] before 8pm Mon-Fri with problems, questions or concerns. If you call after 8pm or on weekends, call the Hospital at [phone] and ask to speak to the Treatment Supervisor semi conductor assembler and the metal washing machine operator will contact that person for you. When should you call for help? Call [phone] anytime you think you may need emergency [...] Where can you learn more? [facility] View your After Visit Summary and more online at [email or web address] If you would like to [...] cost to you. Content Version: 12.2 ?? [id number] [employer]. Care instructions adapted under license by [facility]. If you have questions about a medical condition or this instruction, always ask your healthcare professional. [employer] disclaims any warranty or liability for your [...] 9:00 AM EDT Office [place] [address] Dion Barlow MD [facility] [place] [address] 09/01/2024 9:40 AM EDT Office Visit Cardiology at [address] [phone] Franky Shaver MD [facility] [place] [address] 09/01/2024 11:20 AM EDT Office Visit Dermatology at [address] [phone] Gómez Mercer MD [facility] DR [place] [address] 09/21/2024 2:45 PM EDT Office Visit [place] [phone] Trung Hoyos MD [facility] [place] [address] documented as of this encounter Procedures Procedure [...] Routine 01/20/2024 10:24 AM EST Colonoscopy, Biopsy (15101) 01/20/2024 10:09 AM EST Left sided colitis without complications POCT GLUCOSE Routine 01/20/2024 10:05 AM EST POCT FINGERSTICK GLUCOSE Routine 01/20/2024 10:05 AM EST COLONOSCOPY Routine 01/20/2024 10:01 AM EST documented in this encounter Results * Specimen to Pathology (01/20/2024 10:48 AM EST) AP Specimen 01/20/2024 10:4 8 AM EST 01/20/2024 10:48 AM EST Narrative [facility] - 01/20/2024 10:48 AM EST Specimen requisition ordered. ??Separate Pathology report to follow Anthony Hamlin MD PATHOLOGY/CYTOLOGY O CEE Performing Organization Address [facility] Co de Phone Number [facility] [place] [address] * Specimen to Pathology (01/20/2024 10:48 AM EST) AP Specimen 01/20/2024 10:4 8 AM EST 01/20/2024 10:48 AM EST Narrative [facility] - 01/20/2024 10:48 AM EST Specimen requisition ordered. ??Separate Pathology report to follow Anthony Hamlin MD PATHOLOGY/CYTOLOGY O CEE [facility] [place] [address] * Specimen to Pathology (01/20/2024 10:48 AM EST) AP Specimen 01/20/2024 10:4 8 AM EST 01/20/2024 10:48 AM EST Narrative [facility] - 01/20/2024 10:48 AM EST Specimen requisition ordered. ??Separate Pathology report to follow Anthony Hamlin MD PATHOLOGY/CYTOLOGY O CEE Performing Organization Address City/[facility]/[place] [address] * Specimen to Pathology (01/20/2024 10:48 AM EST) AP Specimen 01/20/2024 10:4 8 AM EST 01/20/2024 10:48 AM EST Narrative [facility] - 01/20/2024 10:48 AM EST Specimen requisition ordered. ??Separate Pathology report to follow Anthony Hamlin MD PATHOLOGY/CYTOLOGY O CEE Performing Organization Address [facility] [place] [address] * Specimen to Pathology (01/20/2024 10:48 AM EST) AP Specimen 01/20/2024 10:4 8 AM EST 01/20/2024 10:48 AM EST Narrative [facility] - 01/20/2024 10:48 AM EST Specimen requisition ordered. ??Separate Pathology report to follow Anthony Hamlin MD PATHOLOGY/CYTOLOGY O CEE Performing Organization Address [facility] Co de Phone Number [facility] [address] * Specimen to Pathology (01/20/2024 10:48 AM EST) AP Specimen 01/20/2024 10:4 8 AM EST 01/20/2024 10:48 AM EST Narrative [facility] - 01/20/2024 10:48 AM EST Specimen requisition ordered. ??Separate Pathology report to follow Anthony Hamlin MD PATHOLOGY/CYTOLOGY O CEE Performing Organization Address City/[facility] [place] [address] * Surgical Pathology Report (01/20/2024 10:24 AM EST) Final Diagnosis [id number] ? Location: 4T; EA12; A The signing [...] [facility] Dept. of Pathology, [place] [address] Slate Cutter: Joana Soler MD, FCAP, ??CLIA Certificate: [id number] SPECIMEN(S) SUBMITTED A - right colon, biopsy [...] labeled F1. ??sns 01/29/2024 12:04 PM EST [facility] GI Biopsy 01/20/2024 10:2 [...] EST Anthony Hamlin MD PATHOLOGY/CYTOLOGY O RDERABLES [facility] [place] [place] [address] [facility] [place] [address] * POCT Glucose (01/20/2024 10:05 AM EST) Glucose, POC 114 65 - 199 mg/dL [facility] Comment: Supplemental ranges: <140 mg/dL before meals <180 mg/dL all other times of the day Blood 01/20/2024 10:0 5 AM EST 01/20/2024 10:05 AM EST Anthony Hamlin MD POINT OF CARE TEST O RDERABLES [facility] [place] [address] * POCT Fingerstick Glucose (01/20/2024 10:05 AM EST) Glucose, POC 114 60 - 199 mg/dl 01/20/2024 10:0 5 AM EST Anthony Hamlin MD POINT OF CARE TEST O RDERABLES * COLONOSCOPY (01/20/2024 10:01 AM EST) COLONOSCOPY [facility] Endoscopy Procedure Date: 01/20/2024 10:01 AM ? Patient Name: Brian Rodriguez ? N: [id number] ? Date of : 1950 ? Age: 73 ? Order #: [id number] ? Instrument Name: [id number] ? Procedure: ? Colonoscopy Indications: ? Follow-up [...] ? physician, the nurse and the ? automotive refinish technician in the pre-procedure ? area in [...] 01/20/2024 10:0 1 AM EST Deacon Watters [employer]GICAL O RDERABLES [employer]OVATION documented in [...] RN) documented in this encounter Care Teams Strapper Operator Relationship Specialty Start Date End Date Deacon Watters APRN [address] [place] [address] [address] [place] [address] PCP - General Family Medicine 02/17/22 documented as of this encounter
--- OUTSIDE RECORDS SUMMARY | 2024-07-18 14:27 | XMS_ITS | Encounter Summary ---
Author Organization [facility] [place] [address] Care Team Providers Care Automatic Spreader Operator Name Role Phone Deacon Watters Priscilla LUCERO Primary Care Provider +1- [phone] Reason for Visit * Reason Comments Medication Refill Encounter Details Date Type Department Care Team (Late st Contact Info) Description 02/19/2024 Ref[place] [address] Dino Barlow MD [facility] [place] [address] Social History Tobacco Use Types Packs/Day Years [...] 9:00 AM EDT Office [place] [address] Dion Barlow MD [facility] [place] [address] 09/01/2024 9:40 AM EDT Office Visit Cardiology at [address] [place] [address] Franky Shaver MD [facility] [place] [address] 09/01/2024 11:20 AM EDT Office Visit Dermatology at [facility] [address] [place] [address] Gómez Mercer MD [facility] DR [place] [address] 09/21/2024 2:45 PM EDT Office Visit Pain and Spine Center at [facility] [place] [address] Trung Hoyos MD [facility] [place] [place] [address] documented as of this encounter Visit Diagnoses Not on filedocumented in this encounter Care Teams Automatic Spreader Operator Relationship Specialty Start Date End Date Deacon Watters, JAZMINE [address] [facility] 1 [place] [address] PCP - General Family Medicine 02/17/22 documented as of this encounter
--- OUTSIDE RECORDS SUMMARY | 2024-07-18 14:27 | XMS_ITS | Encounter Summary ---
Author Organization [facility] Address [facility] [place] [address] Care Team Providers Care Patch Press Operator Name Role Phone Deacon Watters APRN Primary Care Provider +1- [phone] Reason for Visit * Consultation (Routine) - Closed Specialty Diagnoses / Procedures Referred By Perri t Referred To Contact Dermatology Diagnoses Basal cell carcinoma (BCC), unspecified site Becca Villegas APRN [address] [place] [address] [place] [address] Kingsley Finn MD [facility] DR EDDIE [place] [address] Referral ID Status Reason Start Date Expiration Date V isits Requested Visits Authorized [id number] Closed Consult, Test & Treat PCP Updated and/or Approved 01/04/2024 01/03/2025 1 1 Encounter Details Date Type Department Care Team (Late st Contact Info) Description 01/28/2024 2:00 PM EST Office Visit Dermatology at [facility] [address] [place] [address] Kingsley Finn MD [facility] DR EDDIE [place] [address] Basal cell carcinoma of right [...] and follow up with his or her maltster or other skin provider. 5. Discussed avoiding [...] Reviewed and signed by: Kingsley Finn Dermatology [facility] documented in this encounter Plan of Treatment Upcoming Encounters Date Type Department Care Team (Late st Contact Info) Description 08/15/2024 9:00 AM EDT Office [place] [address] Dion Barlow MD [facility] [place] [address] 09/01/2024 9:40 AM EDT Office Visit Cardiology at [address] [address] Franky Shaver MD [facility] [place] [address] 09/01/2024 11:20 AM EDT Office Visit Dermatology at [facility] [address] [place] [address] Gómez Mercer MD [facility] DR EDDIE [place] [address] 09/21/2024 2:45 PM EDT Office Visit [place] [address] Trung Hoyos MD [facility] [place] [address] Scheduled Referrals Name Type Priority Associated Diagnoses Orde r Schedule Referral to Dermatology Outpatient Referral Routine Basal cell carcinoma (BCC), unspecified site Ordered: 01/04/2024 documented as of this encounter Visit Diagnoses Diagnosis Basal cell carcinoma of right side of nose Basal cell carcinoma of skin of other and unspecified parts of face documented in this encounter Care Teams Patch Press Operator Relationship Specialty Start Date End Date Deacon Watters, MED SPECIALIST [address] [place] [address] PCP - General Family Medicine 02/17/22 documented as of this encounter
--- OUTSIDE RECORDS SUMMARY | 2024-07-18 14:27 | XMS_ITS | Encounter Summary ---
Author Organization [facility] Address [facility] [place] [address] Care Team Providers Care Mobile Ui/Ux Designer Name Role Phone Deacon Watters APRN Primary Care Provider +1- [phone] Reason for Referral * Physical Therapy (Routine) - Closed Specialty Diagnoses / Procedures Referred By Contac t Referred To Contact Physical Therapy Diagnoses Spondylosis of cervical region without myelopathy or radiculopathy Santiago Morales PA [facility] [place] [address] Physical Therapy, [address] [place] [address] Referral ID Status Reason Start Date Expiration Date V isits Requested Visits Authorized [id number] Closed Evaluate and Treat 01/07/2024 07/05/2024 12 12 Reason for Visit * Reason Comments Neck Pain chronic neck pain/MR I 10/27/23 in [facility] * Consultation (Routine) - Closed Specialty Diagnoses / Procedures Referred By Contac t Referred To Contact Pain and Spine Center Diagnoses Cervicalgia Other chronic pain chronic neck pain/MRI 10/27/23 @ [facility] Deacon Watters APRN [address] [place] [address] [facility] [place] [address] Referral ID Status Reason Start Date Expiration Date V isits Requested Visits Authorized [id number] Closed Consult, Test & Treat PCP Updated and/or Approved 11/11/2023 05/10/2024 1 1 Encounter Details Date Type Department Care Team (Latest Contact Info) Description 01/07/2024 8:45 AM EST Office Visit [place] [address] Santiago Morales PA [facility] [place] [address] Spondylosis of cervical region without myelopathy or [...] for Pain and Spine @ [facility] for evaluation. Chief Complaint: Neck pain HPI: [...] light touch. Motor exam shows 4/5 left motion picture director strength; otherwise 5/5 throughout. Negativehoffman bilaterally. Imaging: [...] neck pain. He has some left hand motion picture director weakness but otherwise is neuro intact. Imaging [...] 9:00 AM EDT Office [place] [address] Dion Barlow MD [facility] [place] [address] 09/01/2024 9:40 AM EDT Office Visit Cardiology at [address] [address] Franky Shaver MD [facility] [place] [address] 09/01/2024 11:20 AM EDT Office Visit Dermatology at [address] [place] [address] Gómez Mercer MD [facility] [place] [address] 09/21/2024 2:45 PM EDT Office Visit [place] [address] Trung Hoyos MD [facility] [place] [address] Scheduled Referrals Name Type Priority Associated Diagnoses Orde r Schedule Referral to Physical Therapy Outpatient Referral Routine Spondylosis of cervical region without myelopathy or radiculopathy Ordered: 01/07/2024 documented as of this encounter Visit Diagnoses Diagnosis Spondylosis of cervical region without myelopathy or radiculopathy Cervical spondylosis without myelopathy documented in this encounter Care Teams Mobile Ui/Ux Designer Relationship Specialty Start Date End Date Deacon Watters APRN [address] [place] [address] [address] [place] [address] PCP - General Family Medicine 02/17/22 documented as of this encounter
--- OUTSIDE RECORDS SUMMARY | 2024-07-18 14:27 | XMS_ITS | Encounter Summary ---
Author Organization [facility] Address [facility] [place] [address] Care Team Providers Care Screedman/Laborer Name Role Phone DuongDeacon Priscilla LUCERO Primary Care Provider +1- [phone] Encounter Details Date Type Department Care Team [...] 9:00 AM EDT Office [place] [address] Dion Barlow MD [facility] [place] [address] 09/01/2024 9:40 AM EDT Office Visit Cardiology at [address] [phone] Franky Shaver MD [facility] [address] 09/01/2024 11:20 AM EDT Office Visit Dermatology at [facility] [address] [place] [address] Gómez Mercer MD [facility] DR EDDIE [place] [address] 09/21/2024 2:45 PM EDT Office Visit Pain and Spine Center at [facility] [place] [address] Trung Hoyos MD [facility] [place] [address] documented as of this encounter Visit Diagnoses Not on filedocumented in this encounter Care Teams Screedman/Laborer Relationship Specialty Start Date End Date Deacon Watters, JAZMINE [address] [facility] [address] [place] [address] PCP - General Family Medicine 02/17/22 documented as of this encounter
--- OUTSIDE RECORDS SUMMARY | 2024-07-18 14:27 | XMS_ITS | Encounter Summary ---
[place] [address] Care Team Providers Care Supervising Chef Name Role Phone Deacon Watters APRN Primary Care Provider +1- [phone] Reason for Referral * Consultation (Routine) - Closed Specialty Diagnoses / Procedures Referred By Contwillard t Referred To Contact Pain and Spine Center Diagnoses Cervicalgia Other chronic pain chronic neck pain/MRI 10/27/23 @ [facility] Deacon Watters APRN [address] [place] [address] [facility] [place] [address] Referral ID Status Reason Start Date Expiration Date V isits Requested Visits Authorized [id number] Closed Consult, Test & Treat PCP Updated and/or Approved 11/11/2023 05/10/2024 1 1 Encounter Details Date Type Department Care Team (Late st Contact Info) Description 11/18/2023 Transcribe Orders eD Incoming Referrals [phone] Deacon Watters APRN [address] [place], [place] [address] Cervicalgia; Other chronic pain Social History Tobacco [...] 9:00 AM EDT Office [place] [address] Dion Barlow MD [facility] [place] [address] 09/01/2024 9:40 AM EDT Office Visit Cardiology at [address] [address] Franky Shaver MD [facility] [place] [address] 09/01/2024 11:20 AM EDT Office Visit Dermatology at [place] [address] [place] [address] Gómez Mercer MD [facility] DR EDDIE [place] [address] 09/21/2024 2:45 PM EDT Office Visit [place] [address] Trung Hoyos MD [facility] [place] [address] Scheduled Referrals Name Type Priority Associated Diagnoses Orde r Schedule Referral to Spine Center Outpatient Referral Routine Cervicalgia Other chronic pain Ordered: 11/18/2023 documented as of this encounter Visit Diagnoses Diagnosis Cervicalgia Other chronic pain documented in this encounter Care Teams Supervising Chef Relationship Specialty Start Date End Date Deacon Watters, STEAMBOAT CAPTAIN [address] [place] [address] PCP - General Family Medicine 02/17/22 documented as of this encounter
--- OUTSIDE RECORDS SUMMARY | 2024-07-18 14:27 | XMS_ITS | Encounter Summary ---
[place] [address] Care Team Providers Care Data Analytics Specialist Name Role Phone Deacon Watters APRN Primary Care Provider +1- [phone] Encounter Details Date Type Department Care Team (Late st Contact Info) Description 12/07/2023 [place] [address] Estela Phillips Social History Tobacco Use Types [...] - 12/07/2023 10:47 AM EST Brian Rodriguez [id number] Diagnosis/Indication: UC surveillance Please review patient chart [...] procedure? No You must have a responsible republican who will drive you to your procedure, stay on campus for the entire duration of your procedure, and drive you home from your procedure. Who will likely be your driver/guide for the procedure? *Please Verify the height [...] EDT Office [place] [address] Dion Barlow MD [facility] [place] [address] 09/01/2024 9:40 AM EDT Office Visit Cardiology at [address] [phone] Franky Shaver MD [facility] [place] [address] 09/01/2024 11:20 AM EDT Office Visit Dermatology at [facility] [address] [place] [address] Gómez Mercer MD [facility] DR EDDIE [place] [address] 09/21/2024 2:45 PM EDT Office Visit [place] [address] Trung Hoyos MD [facility] [place] [address] documented as of this encounter Visit Diagnoses Not on filedocumented in this encounter Care Teams Data Analytics Specialist Relationship Specialty Start Date End Date Deacon Watters APRN [address] [place] [address] PCP - General Family Medicine 02/17/22 documented as of this encounter
--- OUTSIDE RECORDS SUMMARY | 2024-07-18 14:27 | XMS_ITS | Encounter Summary ---
Author Organization [facility] [place] [address] Care Team Providers Care Wildlife Management Professor Name Role Phone Deacon Watters APRN Primary Care Provider +1- [phone] Encounter Details Date Type Department Care Team (Late st Contact Info) Description 06/09/2024 Telephone [place] [address] Marcelle Weinberg MACROECONOMICS PROFESSOR [facility] [place] [address] Social History Tobacco Use Types Packs/Day Years [...] 9:00 AM EDT Office [place] [address] Dion Barlow MD [facility] [place] [address] 09/01/2024 9:40 AM EDT Office Visit Cardiology at [address] [address] Franky Shaver MD [facility] [place] [address] 09/01/2024 11:20 AM EDT Office Visit Dermatology at [address] [address] Gómez Mercer MD [facility] DR [place] [address] 09/21/2024 2:45 PM EDT Office Visit [place] [address] Trung Hoyos MD [facility] [place] [address] Scheduled Orders Name Type Priority Associated Diagnoses Orde r Schedule Calprotectin, Stool Lab Routine Left sided colitis without complications Expected: 08/01/2024 (Approximate), Expires: 06/09/2025 documented as of this encounter Visit Diagnoses Diagnosis Left sided colitis without complications Left sided ulcerative (chronic) colitis documented in this encounter Care Teams Wildlife Management Professor Relationship Specialty Start Date End Date Deacon Watters APRN [address] [place] [address] PCP - General Family Medicine 02/17/22 documented as of this encounter
--- OUTSIDE RECORDS SUMMARY | 2024-07-18 14:27 | XMS_ITS | Encounter Summary ---
Author Organization [facility] Lina [facility] [place] [address] Care Team Providers Care Airdox Fitter Name Role Phone Deacon Watters APRN Primary Care Provider +1- [phone] Reason for Referral * Consultation (Routine) - Closed Specialty Diagnoses / Procedures Referred By Contac t Referred To Contact Pain and Spine Center Diagnoses Spondylosis of cervical region without myelopathy or radiculopathy Santiago Morales PA [facility] [place] [address] [facility] [place] [address] Referral ID Status Reason Start Date Expiration Date V isits Requested Visits Authorized [id number] Closed Pain Consult 04/06/2024 04/06/2025 1 1 Reason for Visit * Reason Comments Follow-up Pain Back of neck- right side of neck is worse Encounter Details Date Type Department Care Team (Latest Contact Info) Description 04/06/2024 8:30 AM EDT Office Visit [place] [address] Santiago Morales PA [facility] [place] [place] [address] Spondylosis of cervical region without [...] for Pain and Spine @ [facility] for evaluation. Chief Complaint: Neck pain. Intermittent [...] strength though with slight weakness with left care taker compared to thatof the right. Imaging: No [...] 9:00 AM EDT Office [place] [address] Dion Barlow MD [facility] [place] [address] 09/01/2024 9:40 AM EDT Office Visit Cardiology at [address] [phone] Franky Shaver MD [facility] [place] [address] 09/01/2024 11:20 AM EDT Office Visit Dermatology at [facility] [address] [place] [address] Gómez Mercer MD [facility] DR [place] [address] 09/21/2024 2:45 PM EDT Office Visit [place] [address] Trung Hoyos MD [facility] [place] [address] Scheduled Referrals Name Type Priority Associated Diagnoses Orde r Schedule Referral to Pain and Spine Center (Internal only) Outpatient Referral Routine Spondylosis of cervical region without myelopathy or radiculopathy Ordered: 04/06/2024 documented as of this encounter Visit Diagnoses Diagnosis Spondylosis of cervical region without myelopathy or radiculopathy Cervical spondylosis without myelopathy documented in this encounter Care Teams Airdox Fitter Relationship Specialty Start Date End Date Deacon Watters, GUEST SERVICES COORDINATOR [address] [place] [address] PCP - General Family Medicine 02/17/22 documented as of this encounter
--- OUTSIDE RECORDS SUMMARY | 2024-07-18 14:27 | XMS_ITS | Encounter Summary ---
Author Organization [facility] Address [facility] [place] [address] Care Team Providers Care Line Out Worker Name Role Phone DuongDeacon Priscilla LUCERO Primary Care Provider +1- [phone] Encounter Details Date Type Department Care Team [...] 9:00 AM EDT Office [place] [address] Dion Barlow MD [facility] [place] [address] 09/01/2024 9:40 AM EDT Office Visit Cardiology at [address] [phone] Franky Shaver MD [facility] [place] [address] 09/01/2024 11:20 AM EDT Office Visit Dermatology at [facility] [address] [place] [address] Gómez Mercer MD [facility] DR EDDIE [place] [address] 09/21/2024 2:45 PM EDT Office Visit Pain and Spine Center at [place] [address] Trung Hoyos MD [facility] [place] [address] documented as of this encounter Visit Diagnoses Not on filedocumented in this encounter Care Teams Line Out Worker Relationship Specialty Start Date End Date Deacon Watters, JAZMINE [address] [place] [address] PCP - General Family Medicine 02/17/22 documented as of this encounter
--- OUTSIDE RECORDS SUMMARY | 2024-07-18 14:27 | XMS_ITS | Encounter Summary ---
Author Organization Formerly [facility] Address [facility] [place] [address] Care Team Providers Care Manager Dental Name Role Phone Duong Deacon Wells APRN Primary Care Provider +1- [phone] Reason for Visit * Reason Comments Basal Cell Carcinoma Encounter Details Date Type Department Care Team (Latest Contact Info) Description 02/17/2024 8:00 AM EDT Procedure visit Dermatology at [facility] [address] [place] [address] Kingsley Finn MD [facility] DR EDDIE [place] [address] Basal cell carcinoma of right side of [...] is performed when alternative procedures such as [id number] stitching is not optimal. Your graft may [...] the first week unless told differently. Some community director may need to be delayed or delegated [...] as often as is recommended by your brand ambassadors promotional sales, for new skin cancers. This is once [...] it. If after hours, please call the power reactor operator or [phone] and ask for the brand ambassadors promotional sales on-call. If you have any non-urgent questions or concerns, please feel free to call my office or contact me through our patient portal, Getaround, at [email or web address] How to contact us during business hours Dermatology at [facility] Road: Mohs scheduling or Mohs follow-up appointments: [phone] documented in this encounter Progress Notes * [...] and follow up with his or her brand ambassadors promotional sales or other skin provider. 5. Discussed avoiding [...] Reviewed and signed by: Kingsley Finn Dermatology [facility] * Kingsley Finn MD - 02/17/2024 8:00 AM EDT Mohs micrographic Surgery Operative Report Patient name: Brian Rodriguez : 1950 Date: 02/17/2024 Staff Surgeon and Pathologist: Kingsley Finn MD PhD Nursing/Dental Nurse(s): Paula Baez RN, Zuly Morales RN, Barbara Platt FLOOR ATTENDANT, Olga Yostegand-Kaylin ROBINS, Valdimir Ward CMA, Inge ArellanoEcu Health Chowan HospitalLinton RUBBER VULCANIZING MACHINE OPERATOR, Leah PATEL Cloth Examiner Hand (s): Vladimir Alejandro CMA Pre-operative diagnosis: Basal [...] The site was confirmed with the patient/authorized payroll representative/referring physician and/or a photograph form time [...] Surgery and Dermatologic Oncology Department of Dermatology [address] [place] [id number] OPERATIVE REPORT (REPAIR) Patient Name: Brian Rodriguez Age: 73 y.o. : 1950 Date: 02/17/2024 Staff Surgeon: Kingsley Finn MD PhD Assistants: Zuly Morales RN; Shannen Garcia MD; Magda Edouard MD Diagnosis: Status post Mohs micrographic surgery defect/wound Site: right nasal dorsum Final Defect Size prior to repair: 4 x 2.9 cm Donor site: right nasolabial fold INDICATION: repair and latter-day of anatomy/function PROCEDURE: Full-thickness skin graft A [...] Rodriguez Staff Surgeon: Kingsley Finn MD PhD Submarine Element Coordinator(s): same as above administrative office assistant: Zuly Morales RN; Magda Edouard MD; Shannen Garcia MD Date: 02/17/2024 Clinical Diagnosis: skin and soft tissue defect status post Mohs micrographic surgery Location/Site: right nasal dorsum Indication: repair of wound with latter-day of anatomy/function Defect size to be repaired: [...] and Dermatologic Oncology Department of Dermatology [address] [place], [place] [id number] Note initiated by Zuly Morales RN. Zuly Morales RN has performed the documentation for this encounter in the presence of and acting as a scribe for Dr. Finn I performed the above scribed service and agree with the accuracy of the documentation in this encounter. Reviewed and signed by: Kingsley Finn Dermatology [facility] documented in this encounter Plan of Treatment Upcoming Encounters Date Type Department Care Team (Late st Contact Info) Description 08/15/2024 9:00 AM EDT Office [place] [address] Dion Barlow MD [facility] [place] [address] 09/01/2024 9:40 AM EDT Office Visit Cardiology at [address] [place] [address] Franky Shaver MD [facility] [place] [address] 09/01/2024 11:20 AM EDT Office Visit Dermatology at [facility] [address] [place] [phone] Gómez Mercer MD [facility] [place] [address] 09/21/2024 2:45 PM EDT Office Visit Pain and Spine Center at [facility] [place] [phone] Trung Hoyos MD [facility] [place] [address] documented as of this encounter Visit Diagnoses Diagnosis Basal cell carcinoma of right side of nose Basal cell carcinoma of skin of other and unspecified parts of face documented in this encounter Care Teams Manager Dental Relationship Specialty Start Date End Date Deacon Watters, JAZMINE [address] [facility] [address] [place] [address] PCP - General Family Medicine 02/17/22 documented as of this encounter
--- OUTSIDE RECORDS SUMMARY | 2024-07-18 14:27 | XMS_ITS | Encounter Summary ---
Author Organization [facility] Address [facility] [place] [address] Care Team Providers Care Hvac Lead Name Role Phone Duong Deacon Wells APRN Primary Care Provider +1- [phone] Encounter Details Date Type Department Care Team (Latest Contact Info) Description 12/07/2023 8:00 AM EST Office [place] [address] Dion Barlow MD [facility] [place] [address] Left sided colitis without complications Social History [...] the next approximately eight weeks, please call [phone] to schedule the exam. 5. Repeat routine labs today. 6. Follow-up at the time of colonoscopy and in the office with Farideh Weinberg APRN in about 6-8 months. documented in this encounter Progress Notes * Dion Barlow MD - 12/07/2023 8:00 AM EST Images from the original note were not included. [facility] IBD PROGRAM ESTABLISHED PATIENT VISIT Patient Active Problem List Diagnosis Ulcerative colitis Overview Note: Colonoscopy 04/08/10 (Dr. Gomes [facility]) - inflammation only within the rectum and sigmoid; extent of the exam was to the hepatic flexure; biopsies proximal to the sigmoid nl Repeat exam 11/27/11 ([facility] mildly active colitis in the sigmoid colon [...] colon. Several HPs and one TA. [place] 03/2022 - [place] 1 limited to rectosigmoid, [...] Was referred to his urologist at [facility]. He reports that he has a [...] for further details re current symptoms. - [facility] Pre-Visit Questionnaire 12/07/2023 7:54 AM EST [...] varicosities in both legs HEENT: PERRL, EOMI, MORNING SHOW NEWSCAST PRODUCER and OP clear without ulceration or lesions. LUNGS: Clear to auscultation bilaterally. COR: Regular, normal S1 and S2 without murmurs ABD: Normal active bowel sounds. Soft and non-distended. Mild tenderness to deep palpation in the left lower quadrant more than the right lower quadrant EXT: Trace bilateral edema. Laboratory studies, imaging, and procedures (my review of prior records): Labs reviewed from [facility] 01/2023. CBC stable. Creatinine 1.6. Mild [...] neighbor. He is to follow-up with his mercerizer machine operator, Deacon Watters APRN, in early December. Also [...] the next approximately 8 weeks, please call [phone] to schedule the exam. 5. Repeat routine labs today. 6. Follow-up at the time of colonoscopy and in the office with Farideh Weinberg APRN in about 6-8 months. Davina Barlow MD Form Tamperstill operator gin Co-Director, [facility] Section of Gastroenterology [place] [address] documented in this encounter Plan of Treatment Upcoming Encounters Date Type Department Care Team (Late st Contact Info) Description 08/15/2024 9:00 AM EDT Office [place] [address] Dion Barlow MD [facility] [place] [address] 09/01/2024 9:40 AM EDT Office Visit Cardiology at [address] [place] [phone] Franky Shaver MD [facility] [place] [address] 09/01/2024 11:20 AM EDT Office Visit Dermatology at [facility] [address] [place] [phone] Gómez Mercer MD [facility] [address] 09/21/2024 2:45 PM EDT Office Visit [facility] [place] [phone] Trung Hoyos MD [facility] [place] [address] Scheduled Orders Name Type Priority Associated Diagnoses [...] 8:53 AM EST) Neutrophil % 70.6 % [facility] Neutrophil Absolute 4.29 1.70 - 6.10 x10(3)/[facility] LABORAT[facility] Lymph % 20.4 % [facility] Lymphocytes Abs 1.2 0.9 - 3.2 x10(3)/[facility] LABORATORY Monocyte % 5.9 % [facility] Monocyte Abs 0.4 0.3 - 0.9 x10(3)/[facility] LABORATORY Eos % 2.1 % [facility] Eosinophils Abs 0.1 0.0 - 0.4 x10(3)/[facility] LABORATORY Basophil % 0.7 % [facility] Baso Absolute 0.0 0.0 - 0.1 x10(3)/[facility] LABORATORY Immature Gran % 0.30 % [facility] Comment: Immature granulocytes(IG's)percentage and absolute count will include metamyelocytes, myelocytes, and promyelocytes. Blood smears from CBCs yielding IG's will be scanned manually for concordance. If this scan disagrees with the automated IG or if promyelocytes are noted, a manual differential will be performed. Immature Gran Absolute 0.02 0.00 - 0.04 x10(3)/[facility] LABORATORY Blood 12/07/2023 8:53 AM EST 12/07/2023 9:03 AM EST Narrative Resulting Agency Comment Spec In Lab L Karthik Barlow MD HEMATOLOGY ORDERABLE S [facility] [place] [address] * (ABNORMAL) Hemogram (12/07/2023 8:53 AM EST) White Blood Cell 6.1 4.0 - 9.5 x10(3)/mc L [facility] Red Blood Cell 3.87(L) 4.58 - 5.54 x10(6)/mc L [facility] Hemoglobin 12.8(L) 13.7 - 16.5 g/dL [facility] Hematocrit 37.5(L) 40.5 - 48.5 % [facility] Mean Cell Volume 96.9(H) 82.9 - 93.1 fL [facility] Mean Cell Hemoglobin 33.1(H) 27.5 - 32.1 pg [facility] Mean Cell Hemoglobin Concentration 34.1 32.0 - 35.7 g/dL [facility] Platelet 199 145 - 357 x10(3)/mc L [facility] RDW Standard Deviation 44.2 36.0 - 45.0 fL [facility] RDW coefficient of variation 12.6 11.4 - 13.8 % [facility] Mean Platelet Volume 11.2 7.6 - 12.9 fL [facility] NRBC% auto 0.0 % [facility] NRBC Absolute 0.000 0.000 - 0.000 x10(3)/[facility] LABORATORY Blood 12/07/2023 8:53 AM EST 12/07/2023 9:03 AM EST Narrative Resulting Agency Comment Spec In Lab L Karthik Barlow MD HEMATOLOGY ORDERABLE S [facility] [place] [address] * CRP, acute inflammation (12/07/2023 8:53 AM EST) C-Reactive Protein <3.0 <=4.9 mg/L [facility] Blood 12/07/2023 8:53 AM EST 12/07/2023 9:03 AM EST Narrative Resulting Agency Comment Spec In Lab L Karthik Barlow MD CHEMISTRY ORDERABLES [facility] [place] [address] * (ABNORMAL) Comprehensive metabolic panel (non-fasting) (12/07/2023 8:53 AM EST) Glucose 140 65 - 199 mg/dL [facility] Comment:Diabetes: >=200 mg/d L plus symptoms Blood Urea Nitrogen 12 10 - 20 mg/dL [facility] Creatinine 1.05 0.80 - 1.50 mg/dL [facility] Sodium 144 135 - 145 mmol/L [facility] Potassium 4.0 3.5 - 5.0 mmol/L [facility] Comment: Please note: ??Patients with WBC >100,000 may have falsely elevated Potassium levels. ??For accurate Potassium quantification in these patients send serum separator tube (gold top) for subsequent determinations. ??Contact the Clinical Chemistry Laboratory if there are any questions. Chloride 109(H) 98 - 107 mmol/L [facility] Carbon Dioxide 24 22 - 31 mmol/L [facility] Anion Gap 11 5 - 15 mmol/L [facility] Calcium 9.5 8.5 - 10.5 mg/dL [facility] Protein, Total 7.8 6.1 - 8.0 g/dL [facility] Albumin 4.2 3.2 - 5.2 g/dL [facility] Aspartate Aminotransferase 13 0 - 39 unit/L [facility] Alanine Aminotransferase 15 0 - 55 unit/L [facility] Alkaline Phosphatase 77 40 - 130 unit/L [facility] Bilirubin, Total 0.4 0.2 - 1.3 mg/dL [facility] Est Glomerular Filtration Rate 74 >=60 mL/min/1. 73 m?? [facility] Comment: This patient's estimated [...] Lab L Karthik Barlow [place] [address] documented in this encounter Visit Diagnoses Diagnosis Left sided colitis without complications Left sided ulcerative (chronic) colitis documented in this encounter Care Teams Hvac Lead Relationship Specialty Start Date End Date Deacon Watters, INTERNAL CONTROL MANAGER [address] [place] [address] PCP - General Family Medicine 02/17/22 documented as of this encounter
--- OUTSIDE RECORDS SUMMARY | 2024-07-18 14:27 | XMS_ITS | Encounter Summary ---
Author Organization Formerly [facility] [facility] [place] [address] Care Team Providers Care Certified Professional Coder Name Role Phone Deacon Watters APRN Primary Care Provider +1- [phone] Encounter Details Date Type Department Care Team (Late st Contact Info) Description 06/29/2024 External [place] [address] Social History Tobacco Use Types Packs/Day Years Used Date Smoking Tobacco: Former Cigarettes 4 30 1 12/01/1961 - 10/01/1992 Smokeless Tobacco: Former Chew Comments:Denies vaping Alcohol Use Standard Drinks/Week Comments Yes 0 (1 standard drink = 0.6 oz pur e alcohol) twice a year [facility] Utilities Answer Date Recorded In the [...] any time in the past 12 m [facility], were you homeless or living in a senior living (including now)? No 07/01/2024 IPV Inpatient Questions [...] 9:00 AM EDT Office Visit [place] [address] Dion Barlow MD [facility] [place] [address] 09/01/2024 9:40 AM EDT Office Visit Cardiology at [address] [phone] Franky Shaver MD [facility] [place] [address] 09/01/2024 11:20 AM EDT Office Visit Dermatology at [facility] [address] [place] [address] Gómez Mercer MD [facility] DR EDD[place] [address] 09/21/2024 2:45 PM EDT Office Visit Pain [place] [address] Trung Hoyos MD [facility] [place] [address] documented as of this encounter Procedures Procedure Name Priority Date/Time Associated Diagnosis Comments MISC EXTERNAL CARDIOLOGY RESULT Routine 06/29/2024 4:33 PM EDT documented in this encounter Results * External Cardiology Result (06/29/2024 4:33 PM EDT) Anatomical Region Laterality Modality Other Historical Provider EXTERNAL CARDIOLO GY RESULT documented in this encounter Visit Diagnoses Not on filedocumented in this encounter Care Teams Certified Professional Coder Relationship Specialty Start Date End Date Deacon Watters, JAZMINE [address] [place] [address] PCP - General Family Medicine 02/17/22 documented as of this encounter
--- OUTSIDE RECORDS SUMMARY | 2024-07-18 14:27 | XMS_ITS | Encounter Summary ---
Author Organization [facility] [place] [address] Care Team Providers Care Corporate Tax Preparer Name Role Phone Deacon Watters APRN Primary Care Provider +1- [phone] Encounter Details Date Type Department Care Team (Latest Contact Info) Description 06/07/2024 12:55 PM EDT - 06/07/2024 11:59 PM EDT Hospital [place] [address] Left sided colitis without complications Discharge Disposition: [...] 9:00 AM EDT Office Visit [place] [phone] Dion Barlow MD [facility] [place] [address] 09/01/2024 9:40 AM EDT Office Visit Cardiology at [address] [phone] Franky Shaver MD [facility] [place] [address] 09/01/2024 11:20 AM EDT Office Visit Dermatology at [address] [address] Gómez Mercer MD [facility] [place] [address] 09/21/2024 2:45 PM EDT Office Visit Pain [place] [phone] Trung Hoyos MD [facility] [place] [address] documented as of this encounter Procedures Procedure [...] 1 EIA Negative for Shiga Toxin 2 [facility] Stool 06/07/2024 9:00 AM EDT 06/07/2024 1:32 PM EDT Narrative Resulting Agency Comment Spec In Lab Marcelle Weinberg FRAME FEEDER MICROBIOLOGY - GE NERAL ORDERABLES Performing Organization Address City/[facility]/ZIP Co de Phone Number [facility] [place] [address] * Campylobacter Antigen (06/07/2024 9:00 AM EDT) Campylobacter Ag Immunoassay Negative for Campylobacter Antigen [facility] Stool 06/07/2024 9:00 AM EDT 06/07/2024 1:32 PM EDT Narrative Resulting Agency Comment Spec In Lab Marcelle Weinberg FRAME FEEDER MICROBIOLOGY - GE NERAL ORDERABLES Performing Organization Address City/[facility]/ZIP Co de Phone Number [facility] [place] [address] * Stool culture (06/07/2024 9:00 AM EDT) Stool Culture No enteric pathogens isolated [facility] Stool 06/07/2024 9:00 AM EDT 06/07/2024 1:32 PM EDT Narrative Resulting Agency Comment Spec In Lab Marcelle Weinberg FRAME FEEDER MICROBIOLOGY - GE NERAL ORDERABLES Performing Organization Address City/[facility]/ZIP Co de Phone Number [facility] [place] [address] documented in this encounter Visit Diagnoses Diagnosis Left sided colitis without complications Left sided ulcerative (chronic) colitis documented in this encounter Additional Health Concerns Infection Onset Date Last Indicated Resolved Time Rule Out C. difficile 06/07/2024 06/06/20242023 2:27 PM EDT documented as of this encounter Care Teams Corporate Tax Preparer Relationship Specialty Start Date End Date Deacon Watters APRN [address] [place] [address] PCP - General Family Medicine 02/17/22 documented as of this encounter
--- OUTSIDE RECORDS SUMMARY | 2024-07-18 14:27 | XMS_ITS | Encounter Summary ---
Author Organization [facility] Address [facility] [place] [address] Care Team Providers Care Jackhammer Splitter Operator Name Role Phone DuongDeacon Priscilla LUCERO Primary Care Provider +1- [phone] Encounter Details Date Type Department Care Team [...] 9:00 AM EDT Office [place] [address] Dion Barlow MD [facility] [place] [address] 09/01/2024 9:40 AM EDT Office Visit Cardiology at [address] [phone] Franky Shaver MD [facility] [place] [address] 09/01/2024 11:20 AM EDT Office Visit Dermatology at [facility] [address] [place] [address] Gómez Mercer MD [facility] DR EDDIE [place] [address] 09/21/2024 2:45 PM EDT Office Visit Pain and Spine Center at [facility] [place] [address] Trung Hoyos MD [facility] [place] [address] documented as of this encounter Visit Diagnoses Not on filedocumented in this encounter Care Teams Jackhammer Splitter Operator Relationship Specialty Start Date End Date Deacon Watters, JAZMINE [address] [place] [address] PCP - General Family Medicine 02/17/22 documented as of this encounter
--- OUTSIDE RECORDS SUMMARY | 2024-07-18 14:27 | XMS_ITS | Encounter Summary ---
Author Organization [facility] [place] [place] [address] Care Team Providers Care Sharepoint Trainer Name Role Phone Deacon Watters APRN Primary Care Provider +1- [phone] Reason for Visit * Reason Comments Neck Pain * Consultation (Routine) - Closed Specialty Diagnoses / Procedures Referred By Contac t Referred To Contact Pain and Spine Center Diagnoses Spondylosis of cervical region without myelopathy or radiculopathy Santiago Morales PA [facility] [place] [address] [facility] [place] [address] Referral ID Status Reason Start Date Expiration Date V isits Requested Visits Authorized [id number] Closed Pain Consult 04/06/2024 04/06/2025 1 1 Encounter Details Date Type Department Care Team (Latest Contact Info) Description 06/22/2024 8:00 AM EDT Office Visit [place] [address] Trung Hoyos MD [facility] [place] [address] Radiculopathy of cervical region (Primary Dx) Social History Tobacco Use Types Packs/Day Years Used Date Smoking Tobacco: Former Cigarettes 4 30 1 12/01/1961 - 10/01/1992 Smokeless Tobacco: Former Chew Comments:Denies vaping Alcohol Use Standard Drinks/Week Comments Yes 0 (1 standard drink = 0.6 oz pur e alcohol) twice a year [facility] Utilities Answer Date Recorded In [...] any time in the past 12 m [facility], were you homeless or living in [...] from the original note were not included. [facility] Initial Consultation Note DOS: 06/22/24 : 1950 Brian Rodriguez is a 73 y.o. year old male who presents to the pain clinic today at the referral of: Santiago Morales PA [facility] [place] [address] for consideration of treatment for his pain CC: Left-sided neck pain HPI: Brian Rodriguez prefers to be called Eduardo. He is alone today for this visit. He describes left-sided neck pain associated with some left hand weakness. 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 He indicated that he once fell over 50 feet onto his head holding his hard hat, injuring his neck, and crushing his right hand. He was taken to [facility] at that time. 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 Of note he helped build [facility] in the late or early He indicated he had a cortisone injection in his right shoulder which was helpful once. He had a possible lumbar epidural steroid injection at [facility] at least 25 years ago that helped. [...] 3.66) performed by Dion Osullivan MD at [facility] COLONOSCOPY, BIOPSY N/A 02/22/2019 COLONOSCOPY FLEXIBLE, WITH BX (WRVU 3.66) performed by Dion Osullivan MD at [facility] COLONOSCOPY, BIOPSY N/A 03/28/2022 COLONOSCOPY FLEXIBLE, WITH BX (WRVU 3.66) performed by Mona Turner MD at [facility] COLONOSCOPY, BIOPSY N/A 01/20/2024 COLONOSCOPY FLEXIBLE, WITH BX (WRVU 3.56) performed by Anthony Hamlin MD at [facility] COLONOSCOPY, DIAGNOSTIC 11/27/2011 COLONOSCOPY, DIAGNOSTIC performed by Dion OSULLIVAN at [facility] COLONOSCOPY, DIAGNOSTIC 07/13/2014 COLONOSCOPY, DIAGNOSTIC performed by Dion Osullivan MD at [facility] COLONOSCOPY, REMV LESN, SNARE N/A 02/22/2019 COLONOSCOPY, POLYPECTOMY, REMOVAL LESION BY SNARE (WRVU 4.67) performed by Dion Osullivan MD at [facility] COLONOSCOPY, REMV LESN, SNARE N/A 02/26/2021 COLONOSCOPY, POLYPECTOMY, REMOVAL LESION BY SNARE (WRVU 4.67) performed by Dion Osullivan MD at [facility] SIGMOIDOSCOPY, DIAGNOSTIC 03/16/2012 FLEXIBLE SIGMOIDOSCOPY performed by YUDI MALLOY at [facility] UPPER GI ENDOSCOPY, DIAGNOSTIC N/A 04/28/2019 EGD, UPPER GI ENDOSCOPY performed by Iza Coates MD at [facility] UPPER GI ENDOSCOPY, EXAM 10/01/2012 UPPER GI ENDOSCOPY performed by Dion OSULLIVAN at [facility] FAMILY HISTORY: No family history on [...] of Motion -limited Special tests - Neurologic: environmental tech - grossly intact Reflexes - 2+ and [...] the potential roles for physical therapy, the [facility] functional buddhism program, and the [facility] active pain care service [facility]. He expressed interest in the above and wished to consider prior to enrolling. Ross may follow-up in 2 - 3 months or on an as needed basis Thank you for allowing us the opportunity to participate in Brian's care. I spent 45 minutes in direct lzwz-rh-vran time, with 40 minutes counseling him regarding treatment options and addressing specific questions. Thank you for referring him to our clinic. Trung Hoyos MD, MS Emergency Services Dispatcher of Anesthesiology [facility] [address] [phone] / [facility] CC: Santiago Morales PA [facility] PAIN MANAGEMENT [place] [id number] documented in this encounter Plan of Treatment Upcoming Encounters Date Type Department Care Team (Late st Contact Info) Description 08/15/2024 9:00 AM EDT Office [place] [address] Dion Osullivan MD [facility] [place] [address] 09/01/2024 9:40 AM EDT Office Visit Cardiology at [address] [phone] Franky Shaver MD [facility] [place] [address] 09/01/2024 11:20 AM EDT Office Visit Dermatology at [facility] [address] [place] [address] Gómez Mercer MD [facility] DR EDD[place] [address] 09/21/2024 2:45 PM EDT Office Visit [place] [address] Trung Hoyos MD [facility] [place] [address] Scheduled Referrals Name Type Priority Associated Diagnoses Orde r Schedule Referral to Pain and Spine Center (Internal only) Outpatient Referral Routine Spondylosis of cervical region without myelopathy or radiculopathy Ordered: 04/06/2024 documented as of this encounter Visit Diagnoses Diagnosis Radiculopathy of cervical region- Primary Brachial neuritis or radiculitis nos documented in this encounter Care Teams Sharepoint Trainer Relationship Specialty Start Date End Date Deacon Watters, MANAGER BUSINESS OPERATIONS [address] [place] [address] PCP - General Family Medicine 02/17/22 documented as of this encounter
--- OUTSIDE RECORDS SUMMARY | 2024-07-18 14:27 | XMS_ITS | Encounter Summary ---
Author Organization [facility] Address [facility] [place] [address] Care Team Providers Care Blend Technician Name Role Phone Deacon Watters APRN Primary Care Provider +1- [phone] Reason for Referral * Consultation (Routine) - Closed Specialty Diagnoses / Procedures Referred By Perri t Referred To Contact Dermatology Diagnoses Basal cell carcinoma (BCC), unspecified site Becca Villegas APRN [address] [place] [address] [place] [address] Kingsley Finn MD [facility] DR [place] [address] Referral ID Status Reason Start Date Expiration Date V isits Requested Visits Authorized [id number] Closed Consult, Test & Treat PCP Updated and/or Approved 01/04/2024 01/03/2025 1 1 Encounter Details Date Type Department Care Team (Late st Contact Info) Description 01/04/2024 Transcribe Orders eDH Incoming Referrals [phone] Becca Villegas [address] [place] [id number] Basal cell carcinoma (BCC), unspecified site (Primary [...] 9:00 AM EDT Office Visit [place] [address] Dion Barlow MD [facility] [place] [address] 09/01/2024 9:40 AM EDT Office Visit Cardiology at [address] [phone] Franky Shaver MD [facility] [place] [address] 09/01/2024 11:20 AM EDT Office Visit Dermatology at [address] [place] [address] Gómez Mercer MD [facility] DR [place] [address] 09/21/2024 2:45 PM EDT Office Visit [facility] [place] [address] Trung Hoyos MD [facility] [place] [address] Scheduled Referrals Name Type Priority Associated Diagnoses Orde r Schedule Referral to Dermatology Outpatient Referral Routine Basal cell carcinoma (BCC), unspecified site Ordered: 01/04/2024 documented as of this encounter Visit Diagnoses Diagnosis Basal cell carcinoma (BCC), unspecified site- Primary documented in this encounter Care Teams Blend Technician Relationship Specialty Start Date End Date Deacon Watters, JAZMINE [address] [place] [address] PCP - General Family Medicine 02/17/22 documented as of this encounter
--- OUTSIDE RECORDS SUMMARY | 2024-07-18 14:27 | XMS_ITS | Encounter Summary ---
Author Organization [facility] [place] [address] Care Team Providers Care Bar Tacker Sewing Machine Name Role Phone Deacon Watters APRN Primary Care Provider +1- [phone] Encounter Details Date Type Department Care Team (Late st Contact Info) Description 06/29/2024 7:25 PM EDT Ancillary Procedure [place] [phone] Deacon Watters APRN [address] [place] [address] Social History Tobacco Use Types Packs/Day Years [...] 9:00 AM EDT Office [place] [phone] Dion Barlow MD [facility] [place] [address] 09/01/2024 9:40 AM EDT Office Visit Cardiology at [address] [place] [address] Franky Shaver MD [facility] [place] [place] [address] 09/01/2024 11:20 AM EDT Office Visit Dermatology at [facility] [address] [place] [phone] Gómez Mercer MD [facility] [place] [address] 09/21/2024 2:45 PM EDT Office Visit Pain and Spine Center at [facility] [place] [address] Trung Hoyos MD [facility] [place] [address] documented as of this encounter Procedures Procedure Name Priority Date/Time Associated Diagnosis Comments FILM LIBRARY STORAGE ONLY DX CHEST Routine 06/29/2024 7:22 PM EDT documented in this encounter Results * Film Library- Storage Only DX Chest (06/29/2024 7:22 PM EDT) Narrative [facility] - 06/29/2024 7:22 PM EDT This exam is auto-finalizing. It's purpose is for storage only. Deacon Watters APRN IMG FILM LIBRARY O RDERABLES [place], [place] documented in this encounter Visit Diagnoses Not on filedocumented in this encounter Care Teams Bar Tacker Sewing Machine Relationship Specialty Start Date End Date Deacon Watters APRN [address] [place] [address] PCP - General Family Medicine 02/17/22 documented as of this encounter
--- OUTSIDE RECORDS SUMMARY | 2024-07-18 14:27 | XMS_ITS | Encounter Summary ---
Author Organization [facility] Address [facility] [place] [address] Care Team Providers Care Exhibition Carver Name Role Phone Duong Deacon Wells APRN Primary Care Provider +1- [phone] Reason for Visit * Reason Comments Rash Encounter Details Date Type Department Care Team (Late st Contact Info) Description 06/07/2024 1:20 PM EDT Office Visit Dermatology at [facility] [address] [place] [address] Gómez Mercer MD [facility] [place] [address] Tinea cruris Social History Tobacco Use Types [...] scheduled at checkout Scribe attestation: Danyell Anton [facility] has performed the documentation for this encounter inthe presence of and acting as a scribe for Gómez Mercer MD. I performed the above scribed service and agree with the accuracy of the documentation in this encounter. Reviewed and signed by: Gómez Mercer MD Dermatology [facility] Patient seen and evaluated with staff fire department marine engineer: Maria G Padilla MD Dermatology [facility] * Maria G Padilla MD - [...] as documented. Maria G Padilla MD Staff Special Delivery Messenger Department of Dermatology [facility] documented in this encounter Plan of Treatment Upcoming Encounters Date Type Department Care Team (Late st Contact Info) Description 08/15/2024 9:00 AM EDT Office Visit [place] [address] Dion Barlow MD [facility] [place] [address] 09/01/2024 9:40 AM EDT Office Visit Cardiology at [address] [phone] Franky Shaver MD [facility] [place] [address] 09/01/2024 11:20 AM EDT Office Visit Dermatology at [facility] [address] [place] [address] Gómez Mercer MD [facility] DR EDDIE [place] [address] 09/21/2024 2:45 PM EDT Office Visit [facility] [place] [address] Trung Hoyos MD [facility] [place] [address] documented as of this encounter Visit Diagnoses Diagnosis Tinea cruris Dermatophytosis of groin and perianal area documented in this encounter Additional Health Concerns Infection Onset Date Last Indicated Resolved Time Rule Out C. difficile 06/07/2024 06/06/20242023 2:27 PM EDT documented as of this encounter Care Teams Exhibition Carver Relationship Specialty Start Date End Date Deacon Watters APRN [address] [place] [address] PCP - General Family Medicine 02/17/22 documented as of this encounter
--- OUTSIDE RECORDS SUMMARY | 2024-07-18 14:27 | XMS_ITS | Encounter Summary ---
Author Organization Formerly [facility] Address [facility] [place] [address] Care Team Providers Care Spray Blender Name Role Phone Deacon Watters APRN Primary Care Provider +1- [phone] Encounter Details Date Type Department Care Team (Latest Contact Info) Description 06/06/2024 8:00 AM EDT Office Visit [place] [address] Marcelle Weinberg HUMAN RESOURCES MANAGER [facility] [place] [address] Left sided colitis without complications Social History [...] for cramping - Repeat routine labs today( [facility] and submit stool calprotectin ( [facility]). - Follow up with Dermatology regarding [...] colitis Overview Note: Colonoscopy 04/08/10 (Dr[facility] Gomes [facility] [...] ascending colon. Several HPs and one TA. [place] 03/2022 - [place] 1 limited to rectosigmoid, diverticulosis. No dysplasia TREATMENT: cortenemas, Asacol, Rowasa, prednisone, and imodium [place] 12/2023- Ileum was normal. Calvo 1 inflammation [...] - 199 mg/dL Final COLONOSCOPY 01/20/2024 Final Value:[facility] Procedure Date: 01/20/2024 10:01 AM Patient Name: Brian Rodriguez Date of : 1950 Age: 73 Order #: [id number] Instrument Name: [id number]- [id number] Procedure: Colonoscopy Indications: Follow-up of left-sided chronic [...] by the physician, the nurse and the bench repair technician in the pre-procedure area in the [...] 10:01 AM Surgical Pathology Report 01/20/2024 Final Value:[id number] Location: 4T; EA12; A The signing pathologist [...] MD Verified: 01/29/2024 12:04 Pathologist Performed at: -[facility] Dept. of Pathology, [facility] [address], [place] [address] Float Remover: Joana Soler MD, AP, [place] Certificate: [id number] SPECIMEN(S) SUBMITTED A - right colon, biopsy [...] for cramping - Repeat routine labs today( [facility]) and submit stool calprotectin ( [facility]). - Follow up with Dermatology regarding skin rash on your groin. - Follow up with Dr. Barlow in 4 months Please contact me if there are any further questions regarding the care of this patient. Shan Weinberg APRN [facility] Section of Gastroenterology and Hepatology [address] [address] documented in this encounter Plan of Treatment Upcoming Encounters Date Type Department Care Team (Late st Contact Info) Description 08/15/2024 9:00 AM EDT Office Visit [place] [address] Dion Barlow MD [facility] [place] [address] 09/01/2024 9:40 AM EDT Office Visit Cardiology at [address] [place] [address] Franky Shaver MD [facility] [place] [address] 09/01/2024 11:20 AM EDT Office Visit Dermatology at [facility] [address] [place] [address] Gómez Mercer MD [facility] DR EDDIE [place] [address] 09/21/2024 2:45 PM EDT Office Visit [facility] [place] [address] Trung Hoyos MD [facility] [place] [address] documented as of this encounter Procedures Procedure [...] Interp Negative Negative [facility] Comment: Ag/Tox Neg C. diff?? Negative Clostridium difficile is not present in the specimen. If patient is having diarrhea suspected to be from an infectious cause, then Soap & Water Contact Precautions are still required. Stool 06/06/2024 5:30 PM EDT 06/07/2024 1:32 PM EDT Narrative Resulting Agency Comment Spec In Lab MonalisaDg Weinberg HUMAN RESOURCES MANAGER MICROBIOLOGY - GE NERAL ORDERABLES Performing Organization Address [facility] [place]/[facility] Co de Phone Number [facility] [place] [address] * (ABNORMAL) Calprotectin, Stool (06/06/2024 5:30 PM EDT) Pathologist [facility] Calprotectin, Stool 112(H) <=79 mcg/g [facility] Comment: Calprotectin Concentration ? Interpretation ? < 80 mcg/g ?Normal ? 80 ? 160 mcg/g ?Borderline ? >160 mcg/g ?Elevated Stool 06/06/2024 5:30 PM EDT 06/07/2024 1:07 PM EDT Narrative Resulting Agency Comment Spec In Lab MonalisaDg Weinberg HUMAN RESOURCES MANAGER BODY FLUIDS AND S TOOLS ORDERABLES Performing Organization Address [facility] [place] de Phone Number [facility] [place] [address] * Differential, Automated (06/06/2024 9:04 AM EDT) Pathologist [facility] Neutrophil % 70.3 % [facility] Neutrophil Absolute 4.36 1.70 - 6.10 x10(3)/[facility] Lymph % 19.7 % [facility] Lymphocytes Abs 1.2 0.9 - 3.2 x10(3)/[facility] Monocyte % 7.7 % [facility] Monocyte Abs 0.5 0.3 - 0.9 x10(3)/[facility] Eos % 1.3 % [facility] Eosinophils Abs 0.1 0.0 - 0.4 x10(3)/[facility] Basophil % 0.5 % [facility] Baso Absolute 0.0 0.0 - 0.1 x10(3)/[facility] Immature Gran % 0.50 % [facility] Comment: Immature granulocytes(IG's)percentage and absolute count will include metamyelocytes, myelocytes, and promyelocytes. Blood smears from CBCs yielding IG's will be scanned manually for concordance. If this scan disagrees with the automated IG or if promyelocytes are noted, a manual differential will be performed. Immature Gran Absolute 0.03 0.00 - 0.04 x10(3)/[facility] Blood 06/06/2024 9:04 AM EDT 06/06/2024 9:12 AM EDT Narrative Resulting Agency Comment Spec In Lab Marcelle Weinberg HUMAN RESOURCES MANAGER HEMATOLOGY ORDERA BLES [facility] [place] [address] * (ABNORMAL) Hemogram (06/06/2024 9:04 AM EDT) White Blood Cell 6.2 4.0 - 9.5 x10(3)/mc L [facility] Red Blood Cell 3.68(L) 4.58 - 5.54 x10(6)/mc L [facility] Hemoglobin 12.0(L) 13.7 - 16.5 g/dL [facility] Hematocrit 35.7(L) 40.5 - 48.5 % [facility] Mean Cell Volume 97.0(H) 82.9 - 93.1 fL [facility] Mean Cell Hemoglobin 32.6(H) 27.5 - 32.1 pg [facility] Mean Cell Hemoglobin Concentration 33.6 32.0 - 35.7 g/dL [facility] Platelet 168 145 - 357 x10(3)/mc L [facility] RDW Standard Deviation 46.7(H) 36.0 - 45.0 fL [facility] RDW coefficient of variation 13.1 11.4 - 13.8 % [facility] Mean Platelet Volume 11.3 7.6 - 12.9 [facility] NRBC% auto 0.0 % [facility] NRBC Absolute 0.000 0.000 - 0.000 x10(3)/mc L [facility] Blood 06/06/2024 9:04 AM EDT 06/06/2024 9:12 AM EDT Narrative Resulting Agency Comment Spec In Lab Marcelle Weinberg HUMAN RESOURCES MANAGER HEMATOLOGY ORDERA BLES Performing Organization Address City/[facility]/ZIP Co de Phone Number [facility] [place] [address] * (ABNORMAL) CRP, acute inflammation (06/06/2024 9:04 AM EDT) C-Reactive Protein 6.4(H) <=4.9 mg/L [facility] Blood 06/06/2024 9:04 AM EDT 06/06/2024 9:12 AM EDT Narrative Resulting Agency Comment Spec In Lab Marcelle Weinberg HUMAN RESOURCES MANAGER CHEMISTRY ORDERAB LES [facility] [place] [address] * Sedimentation rate (06/06/2024 9:04 AM EDT) Sedimentation Rate Automated 38 3 - 46 mm/hr [facility] Comment: Effective November 02, 2019 new capillary photometric technology has resulted in a change in reference ranges. It is recommended that each ESR result be reviewed with its own age appropriate reference range. Blood 06/06/2024 9:04 AM EDT 06/06/2024 9:12 AM EDT Narrative Resulting Agency Comment Spec In Lab MonalisaDg Weinberg HUMAN RESOURCES MANAGER HEMATOLOGY ORDERA BLES [facility] [place] [address] * Comprehensive metabolic panel (non-fasting) (06/06/2024 9:04 AM EDT) Glucose 136 65 - 199 mg/dL [facility] Comment:Diabetes: >=200 mg/d L plus symptoms Blood Urea Nitrogen 16 10 - 20 mg/dL [facility] Creatinine 1.05 0.80 - 1.50 mg/dL [facility] Sodium 144 135 - 145 mmol/L [facility] Potassium 4.2 3.5 - 5.0 mmol/L [facility] Comment: Please note: ??Patients with WBC >100,000 may have falsely elevated Potassium levels. ??For accurate Potassium quantification in these patients send serum separator tube (gold top) for subsequent determinations. ??Contact the Clinical Chemistry Laboratory if there are any questions. Chloride 107 98 - 107 mmol/L [facility] Carbon Dioxide 26 22 - 31 mmol/L [facility] Anion Gap 11 5 - 15 mmol/L [facility] Calcium 9.8 8.5 - 10.5 mg/dL [facility] Protein, Total 7.6 6.1 - 8.0 g/dL [facility] Albumin 4.1 3.2 - 5.2 g/dL [facility] Aspartate Aminotransferase 16 0 - 39 unit/L [facility] Alanine Aminotransferase 18 0 - 55 unit/L [facility] Alkaline Phosphatase 71 40 - 130 unit/L [facility] Bilirubin, Total 0.5 0.2 - 1.3 mg/dL [facility] Est Glomerular Filtration Rate 74 >=60 mL/min/1. 73 m?? [facility] Comment: This patient's [...] APRN CHEMISTRY ORDERAB LES Performing Organization Address City/State/[facility] Co de Phone Number [facility] [place] [address] documented in this encounter Visit Diagnoses Diagnosis Left sided colitis without complications Left sided ulcerative (chronic) colitis documented in this encounter Care Teams Spray Blender Relationship Specialty Start Date End Date Deacon Watters APRN [address] [place] [address] PCP - General Family Medicine 02/17/22 documented as of this encounter
--- OUTSIDE RECORDS SUMMARY | 2024-07-18 14:27 | XMS_ITS | Encounter Summary ---
Author Organization [facility]ly [facility] Address [facility] [place] [address] Care Team Providers Care Casing Inspector Name Role Phone Duong Deacon Wells APRN Primary Care Provider +1- [phone] Encounter Details Date Type Department Care Team [...] AM EDT Office Visit [place] [address] Dion Barlow MD [facility] [place] [address] 09/01/2024 9:40 AM EDT Office Visit Cardiology at [address] [phone] Franky Shaver MD [facility] [place] [address] 09/01/2024 11:20 AM EDT Office Visit Dermatology at [facility] [address] [place] [address] Gómez Mercer MD [facility] DR EDDIE [place] [address] 09/21/2024 2:45 PM EDT Office Visit [facility] [place] [address] Trung Hoyos MD [facility] [place] [address] documented as of this encounter Visit Diagnoses Not on filedocumented in this encounter Care Teams Casing Inspector Relationship Specialty Start Date End Date Deacon Watters, JAZMINE [address] [place] [address] PCP - General Family Medicine 02/17/22 documented as of this encounter
--- OUTSIDE RECORDS SUMMARY | 2024-07-18 14:27 | XMS_ITS | Encounter Summary ---
Author Organization [facility] Address [facility] [place] [address] Care Team Providers Care Data Technical Lead Name Role Phone Duong Deacon Wells APRN Primary Care Provider +1- [phone] Reason for Visit * Reason Comments Basal Cell Carcinoma Encounter Details Date Type Department Care Team (Latest Contact Info) Description 02/17/2024 7:45 AM EDT Clinical Support Dermatology at [facility] [address] [place] [address] Kingsley Finn MD [facility] [place] [address] Basal cell carcinoma of right side of [...] 9:00 AM EDT Office Visit [place] [address] Dion Barlow MD [facility] [place] [address] 09/01/2024 9:40 AM EDT Office Visit Cardiology at [address] [address] Franky Shaver MD [facility] [place] [address] 09/01/2024 11:20 AM EDT Office Visit Dermatology at [facility] [address] [place] [address] Gómez Mercer MD [facility] DR [place] [address] 09/21/2024 2:45 PM EDT Office Visit Pain and Spine Center at [facility] [place] [phone] Trung Hoyos MD [facility] [place] [address] documented as of this encounter Visit Diagnoses Diagnosis Basal cell carcinoma of right side of nose Basal cell carcinoma of skin of other and unspecified parts of face documented in this encounter Care Teams Data Technical Lead Relationship Specialty Start Date End Date Deacon Watters APRN [address] [place] [address] PCP - General Family Medicine 02/17/22 documented as of this encounter
--- OUTSIDE RECORDS SUMMARY | 2024-07-18 14:27 | XMS_ITS | Encounter Summary ---
Author Organization Formerly [facility] Address [facility] [place] [address] Care Team Providers Care Lumber Inspector Name Role Phone DuongDeacon Priscilla LUCERO Primary Care Provider +1- [phone] Encounter Details Date Type Department Care Team [...] 9:00 AM EDT Office Visit [place] [address] Dion Barlow MD [facility] [place] [address] 09/01/2024 9:40 AM EDT Office Visit Cardiology at [address] [phone] Franky Shaver MD [facility] [place] [address] 09/01/2024 11:20 AM EDT Office Visit Dermatology at [facility] [address] [place] [address] Gómez Mercer MD [facility] DR [place] [address] 09/21/2024 2:45 PM EDT Office Visit Pain and Spine Center at [facility] [place] [address] Trung Hoyos MD [facility] [place] [address] documented as of this encounter Visit Diagnoses Not on filedocumented in this encounter Care Teams Lumber Inspector Relationship Specialty Start Date End Date Deacon Watters, JAZMINE [address] [place] [address] PCP - General Family Medicine 02/17/22 documented as of this encounter
--- OUTSIDE RECORDS SUMMARY | 2024-07-18 14:27 | XMS_ITS | Encounter Summary ---
Author Organization [facility]ly [facility] Address [facility] [place] [address] Care Team Providers Care Manufacturing Inspector Name Role Phone Duong Deacon Wells APRN Primary Care Provider +1- [phone] Encounter Details Date Type Department Care Team (Latest Contact Info) Description 01/20/2024 9:28 AM EST - 01/20/2024 11:41 AM EST Hospital En[place] [address] Anthony Hamlin MD [facility] [place] [address] Discharge Disposition: Home Social History Tobacco Use [...] occurs, please contact your Doctor. Please call [phone] before 8pm Mon-Fri with problems, questions or concerns. If you call after 8pm or on weekends, call the Hospital at [phone] and ask to speak to the Group Work Program Director cone marker and the drum drier operator will contact that person for you. When should you call for help? Call [phone] anytime you think you may need emergency [...] any problems. Where can you learn more? [facility] View your After Visit Summary and more online at [email or web address] If you would like to provide [...] cost to you. Content Version: 12.2 ?? 7512-3151 [employer]. Care instructions adapted under license by [facility]. If you have questions about a medical condition or this instruction, always ask your healthcare professional. [employer] disclaims any warranty or liability for your [...] 9:00 AM EDT Office [place] [address] Dion Barlow MD [facility] [place] [address] 09/01/2024 9:40 AM EDT Office Visit Cardiology at [address] [phone] Franky Shaver MD [facility] [place] [place] [address] 09/01/2024 11:20 AM EDT Office Visit Dermatology at [address] [phone] Gómez Mercer MD [facility] [place] [address] 09/21/2024 2:45 PM EDT Office Visit [place] [address] Trung Hoyos MD [facility] [place] [address] documented as of this encounter Procedures Procedure [...] Routine 01/20/2024 10:24 AM EST Colonoscopy, Biopsy ([id number]) 01/20/2024 10:09 AM EST Left sided colitis without complications POCT GLUCOSE Routine 01/20/2024 10:05 AM EST POCT FINGERSTICK GLUCOSE Routine 01/20/2024 10:05 AM EST COLONOSCOPY Routine 01/20/2024 10:01 AM EST documented in this encounter Results * Specimen to Pathology (01/20/2024 10:48 AM EST) AP Specimen 01/20/2024 10:4 8 AM EST 01/20/2024 10:48 AM EST Narrative [facility] - 01/20/2024 10:48 AM EST Specimen requisition ordered. ??Separate Pathology report to follow Anthony Hamlin MD PATHOLOGY/CYTOLOGY O CEE Performing Organization Address [facility] Co de Phone Number [facility] [place] [address] * Specimen to Pathology (01/20/2024 10:48 AM EST) AP Specimen 01/20/2024 10:4 8 AM EST 01/20/2024 10:48 AM EST Narrative [facility] - 01/20/2024 10:48 AM EST Specimen requisition ordered. ??Separate Pathology report to follow Anthony Hamlin MD PATHOLOGY/CYTOLOGY O CEE Performing Organization Address City/[facility]/ZIP Co de Phone Number [facility] [place] [address] * Specimen to Pathology (01/20/2024 10:48 AM EST) AP Specimen 01/20/2024 10:4 8 AM EST 01/20/2024 10:48 AM EST Narrative [facility] - 01/20/2024 10:48 AM EST Specimen requisition ordered. ??Separate Pathology report to follow Anthony Hamlin MD PATHOLOGY/CYTOLOGY O RDMELISSA Performing Organization Address City/[facility] [place] [address] * Specimen to Pathology (01/20/2024 10:48 AM EST) AP Specimen 01/20/2024 10:4 8 AM EST 01/20/2024 10:48 AM EST Narrative [facility] - 01/20/2024 10:48 AM EST Specimen requisition ordered. ??Separate Pathology report to follow Anthony Hamlin MD PATHOLOGY/CYTOLOGY O RDMELISSA Performing Organization Address [facility] Co de Phone Number [facility] [place] [address] * Specimen to Pathology (01/20/2024 10:48 AM EST) AP Specimen 01/20/2024 10:4 8 AM EST 01/20/2024 10:48 AM EST Narrative [facility] - 01/20/2024 10:48 AM EST Specimen requisition ordered. ??Separate Pathology report to follow Anthony Hamlin MD PATHOLOGY/CYTOLOGY O CEE Performing Organization Address [facility] Co de Phone Number [facility] [place] [address] * Specimen to Pathology (01/20/2024 10:48 AM EST) AP Specimen 01/20/2024 10:4 8 AM EST 01/20/2024 10:48 AM EST Narrative [facility] - 01/20/2024 10:48 AM EST Specimen requisition ordered. ??Separate Pathology report to follow Anthony Hamlin MD PATHOLOGY/CYTOLOGY O RDMELISSA Performing Organization Address City/[facility] Co de Phone Number [facility] [place] [address] * Surgical Pathology Report (01/20/2024 10:24 AM EST) Final Diagnosis [id number] ? Location: 4T; EA12; A The signing [...] Verified: ??01/29/2024 12:04 ??Pathologist Performed at: ??-[facility] Dept. of Pathology, [place] [address] Natural Fabricator: Joana Soler MD, FCAP, ??CLIA Certificate: [id number] SPECIMEN(S) SUBMITTED A - right colon, biopsy [...] EST Anthony Hamlin MD PATHOLOGY/CYTOLOGY O RDERABLES [facility] [place] [address] [facility] [address] * POCT Glucose (01/20/2024 10:05 AM EST) Glucose, POC 114 65 - 199 mg/dL [facility] Comment: Supplemental ranges: <140 mg/dL before meals <180 mg/dL all other times of the day Blood 01/20/2024 10:0 5 AM EST 01/20/2024 10:05 AM EST Anthony Hamlin MD POINT OF CARE TEST O RDERABLES [facility] [place] [address] * POCT Fingerstick Glucose (01/20/2024 10:05 AM EST) Glucose, POC 114 60 - 199 mg/dl 01/20/2024 10:0 5 AM EST Anthony Hamlin MD POINT OF CARE TEST O RDERABLES * COLONOSCOPY (01/20/2024 10:01 AM EST) COLONOSCOPY [facility] Procedure Date: 01/20/2024 10:01 AM ? Patient Name: Brian Rodriguez ? Date of : 1950 ? Age: 73 ? Order #: [id number] ? Instrument Name: [id number] ? Procedure: ? Colonoscopy Indications: ? Follow-up [...] ? physician, the nurse and the ? archives technician in the pre-procedure ? area in [...] 01/20/2024 10:0 1 AM EST Deacon Watters [employer]PA[employer] GENERAL SURGICAL O RDERABLES [employer] documented in [...] documented in this encounter Care Teams Manufacturing Inspector Relationship Specialty Start Date End Date Deacon Watters, JAZMINE [address] [place] [address] [address] [place] [address] PCP - General Family Medicine 02/17/22 documented as of this encounter
--- OUTSIDE RECORDS SUMMARY | 2024-07-18 14:27 | XMS_ITS | Encounter Summary ---
Author Organization [facility] Address [facility] [place] [address] Care Team Providers Care General Manager Food Name Role Phone DuongDeacon Priscilla LUCERO Primary Care Provider +1- [phone] Encounter Details Date Type Department Care Team [...] 9:00 AM EDT Office [place] [address] Dion Barlow MD [facility] [place] [address] 09/01/2024 9:40 AM EDT Office Visit Cardiology at [address] [phone] Franky Shaver MD [facility] [place] [address] 09/01/2024 11:20 AM EDT Office Visit Dermatology at [facility] [address] [place] [address] Gómez Mercer MD [facility] DR EDDIE [place] [address] 09/21/2024 2:45 PM EDT Office Visit [facility] at [facility] [place] [address] Trung Hoyos MD [facility] [place] [address] documented as of this encounter Visit Diagnoses Not on filedocumented in this encounter Care Teams General Manager Food Relationship Specialty Start Date End Date Deacon Watters, JAZMINE [address] [place] [address] PCP - General Family Medicine 02/17/22 documented as of this encounter
--- OUTSIDE RECORDS SUMMARY | 2024-07-18 14:27 | XMS_ITS | Encounter Summary ---
Author Organization [facility] [place] [address] Care Team Providers Care Sanitary Chemist Name Role Phone Deacon Watters Priscilla LUCERO Primary Care Provider +1- [phone] Reason for Visit * Reason Comments Medication Refill Encounter Details Date Type Department Care Team (Late st Contact Info) Description 01/11/2024 [place] [address] Dion Barlow MD [facility] [place] [address] Social History Tobacco Use Types Packs/Day Years [...] 9:00 AM EDT Office [place] [phone] Dion Barlow MD [facility] [place] [address] 09/01/2024 9:40 AM EDT Office Visit Cardiology at [address] [place] [address] Franky Shaver MD [facility] [place] [address] 09/01/2024 11:20 AM EDT Office Visit Dermatology at [facility] [address] [place] [address] Gómez Mercer MD [facility] DR EDDIE [place] [address] 09/21/2024 2:45 PM EDT Office Visit [place] [phone] Trung Hoyos MD [facility] [place] [address] documented as of this encounter Visit Diagnoses Not on filedocumented in this encounter Care Teams Sanitary Chemist Relationship Specialty Start Date End Date Deacon Watters, ITEM PROCESSOR [address] [place] [address] PCP - General Family Medicine 02/17/22 documented as of this encounter
--- OUTSIDE RECORDS SUMMARY | 2024-07-18 14:27 | XMS_ITS | Encounter Summary ---
Author Organization [facility] Address [facility] [place] [address] Care Team Providers Care Brush Holder Inspector Name Role Phone Deacon Watters APRN Primary Care Provider +1- [phone] Encounter Details Date Type Department Care Team (Late st Contact Info) Description 06/29/2024 [place] [phone] [facility] [place] [address] Social History Tobacco Use Types Packs/Day Years [...] Date: 06/29/24 Referring Provider: William Patient Location: [facility] HPI: 74 yoM w/ PMHx of [...] as tolerated - TTE - plan for [facility] Recommendations: Above recommendations were based on my discussion with Dr. briscoe; I have not personally interviewed or examined this patient. Advised to call the transfer center back with any changes in the patient condition. Ramakrishna Elliott MD Casualty Claims Supervisor documented in this encounter Plan of Treatment Upcoming Encounters Date Type Department Care Team (Late st Contact Info) Description 08/15/2024 9:00 AM EDT Office [place] [address] [facility] [place] [address] 09/01/2024 9:40 AM EDT Office Visit Cardiology at [address] [place] [address] [facility] [place] [address] 09/01/2024 11:20 AM EDT Office Visit Dermatology at [facility] [address] [place] [phone] [facility] [address] EDDIE [place] [address] 09/21/2024 2:45 PM EDT Office Visit Pain and Spine Center at [facility] [place] [address] [facility] [place] [address] documented as of this encounter Visit Diagnoses Not on filedocumented in this encounter Care Teams Brush Holder Inspector Relationship Specialty Start Date End Date Deacon Watters, SECURITY DELIVERY SPECIALIST [address] [place] [address] PCP - General Family Medicine 02/17/22 documented as of this encounter
--- OUTSIDE RECORDS SUMMARY | 2024-07-18 14:27 | XMS_ITS | Encounter Summary ---
Author Organization [facility] [place] [address] Care Team Providers Care Cleaning Staff Supervisor Name Role Phone Deacon Watters APRN Primary Care Provider +1- [phone] Encounter Details Date Type Department Care Team (Latest Contact Info) Description 06/06/2024 12:56 PM EDT - 06/06/2024 11:59 PM EDT [place] [address] Left sided colitis without complications Discharge Disposition: [...] 9:00 AM EDT Office [place] [address] Dion Barlow MD [facility] [place] [address] 09/01/2024 9:40 AM EDT Office Visit Cardiology at [address] [phone] Franky Shaver MD [facility] [place] [address] 09/01/2024 11:20 AM EDT Office Visit Dermatology at [place] [address] [place] [address] Gómez Mercer MD [facility] [address] 09/21/2024 2:45 PM EDT Office Visit [facility] [place] [address] Trung Hoyos MD [facility] [place] [address] documented as of this encounter Procedures Procedure Name Priority Date/Time Associated Diagnosis Comments HC C. DIFF QUIK CHEK ANTIGEN Routine 06/06/2024 5:30 PM EDT Left sided colitis without complications CALPROTECTIN,STOOL Routine 06/06/2024 5: 30 PM EDT Left sided colitis without complications documented in this encounter Results * (ABNORMAL) Calprotectin, Stool (06/06/2024 5:30 PM EDT) Calprotectin, Stool 112(H) <=79 mcg/g [facility] Comment: Calprotectin Concentration ? Interpretation ? < 80 mcg/g ?Normal ? 80 ? 160 mcg/g ?Borderline ? >160 mcg/g ?Elevated Stool 06/06/2024 5:30 PM EDT 06/07/2024 1:07 PM EDT Narrative Resulting Agency Comment Spec In Lab Marcelle Weinberg AIR QUALITY SPECIALIST BODY FLUIDS AND S TOOLS ORDERABLES Performing Organization Address [facility] Co de Phone Number [facility] [place] [address] * C. Difficile Screen (06/06/2024 5:30 PM [...] Agency Comment Spec In Lab Marcelle Weinberg AIR QUALITY SPECIALIST MICROBIOLOGY - GE NERAL ORDERABLES Performing Organization Address [facility] Co de Phone Number [facility] [place] [address] documented in this encounter Visit Diagnoses Diagnosis Left sided colitis without complications Left sided ulcerative (chronic) colitis documented in this encounter Care Teams Cleaning Staff Supervisor Relationship Specialty Start Date End Date Deacon Watters APRN [address] [place], [place] [address] [address] [place] [address] PCP - General Family Medicine 02/17/22 documented as of this encounter
--- OUTSIDE RECORDS SUMMARY | 2024-07-18 14:27 | XMS_ITS | Encounter Summary ---
Author Organization [facility] Address [facility] [place] [address] Care Team Providers Care Chief Vendor Quality Name Role Phone DuongDeacon Priscilla LUCERO Primary Care Provider +1- [phone] Encounter Details Date Type Department Care Team [...] 9:00 AM EDT Office [place] [address] Dion Barlow MD [facility] [place] [address] 09/01/2024 9:40 AM EDT Office Visit Cardiology at [address] [phone] Franky Shaver MD [facility] [place] [address] 09/01/2024 11:20 AM EDT Office Visit Dermatology at [facility] [address] [place] [address] Gómez Mercer MD [facility] DR EDDIE [place] [address] 09/21/2024 2:45 PM EDT Office Visit Pain and Spine Center at [facility] [place] [address] Trung Hoyos MD [facility] [place] [address] documented as of this encounter Visit Diagnoses Not on filedocumented in this encounter Care Teams Chief Vendor Quality Relationship Specialty Start Date End Date Deacon Watters, JAZMINE [address] [place] [address] PCP - General Family Medicine 02/17/22 documented as of this encounter
--- OUTSIDE RECORDS SUMMARY | 2024-07-18 14:27 | XMS_ITS | Encounter Summary ---
Author Organization [facility] [place] [address] Care Team Providers Care Data Review Specialist Name Role Phone Deacon Watters APRN Primary Care Provider +1- [phone] Encounter Details Date Type Department Care Team (Late st Contact Info) Description 06/06/2024 Telephone [place] [phone] Marcelle Weinberg STOCK SUPERVISOR [facility] [place] [address] Social History Tobacco Use Types Packs/Day Years [...] 9:00 AM EDT Office [place] [phone] Dion Barlow MD [facility] [place] [address] 09/01/2024 9:40 AM EDT Office Visit Cardiology at [address] [address] Franky Shaver MD [facility] [place] [address] 09/01/2024 11:20 AM EDT Office Visit Dermatology at [address] [address] Gómez Mercer MD [facility] [place] [address] 09/21/2024 2:45 PM EDT Office Visit [place] [address] Trung Hoyos MD [facility] [place] [address] documented as of this encounter Visit Diagnoses Not on filedocumented in this encounter Care Teams Data Review Specialist Relationship Specialty Start Date End Date Deacon Watters APRN [address] [place] [address] [address] [facility] [address] [place] [address] PCP - General Family Medicine 02/17/22 documented as of this encounter
--- OUTSIDE RECORDS SUMMARY | 2024-07-18 14:27 | XMS_ITS | Encounter Summary ---
Author Organization [facility]1983 Address [facility] [place] [address] Care Team Providers Care Civil Project Engineer Name Role Phone DuongVeliakip Wells APRN Primary Care Provider +1- [phone] Encounter Details Date Type Department Care Team (Late st Contact Info) Description 03/02/2024 2:45 PM EDT Office Visit Dermatology at [facility] [address] [place] [address] Matti Bland MD [facility] DR EDDIE [place] [address] Visit for suture removal Social History Tobacco [...] 2. Follow up with referring provider or store host for skin exams. 3. Follow up with Dr. Keller: as needed Note initiated and signed by Inge Forte LPN documented in this encounter Plan of Treatment Upcoming Encounters Date Type Department Care Team (Late st Contact Info) Description 08/15/2024 9:00 AM EDT Office Visit [place] [address] Dion Barlow MD [facility] [place] [address] 09/01/2024 9:40 AM EDT Office Visit Cardiology at [address] [phone] Franky Shaver MD [facility] [place] [address] 09/01/2024 11:20 AM EDT Office Visit Dermatology at [facility] [address] [place] [phone] Gómez Mercer MD [facility] DR EDDIE [place] [address] 09/21/2024 2:45 PM EDT Office Visit [facility] [place] [phone] Trung Hoyos MD [facility] [place] [address] documented as of this encounter Visit Diagnoses Diagnosis Visit for suture removal Encounter for removal of sutures documented in this encounter Care Teams Civil Project Engineer Relationship Specialty Start Date End Date Deacon Watters, JAZMINE [address] [place] [address] PCP - General Family Medicine 02/17/22 documented as of this encounter
--- OUTSIDE RECORDS SUMMARY | 2024-07-18 14:27 | XMS_ITS | Encounter Summary ---
Author Organization [facility] [place] [address] Care Team Providers Care Kiln Remover Name Role Phone Deacon Watters APRN Primary Care Provider [phone] Reason for Visit * Auth/Cert (Routine) Specialty Diagnoses / Procedures Referred By Contac t Referred To Contact Diagnoses NSTEMI (non-ST elevated myocardial infarction) NSTEMI Triston Godinez MD [facility] [place] [address] [facility] Referral ID Status Reason Start Date Expiration Date Visits Re quested Visits Authorized [id number] 1 1 Encounter Details Date Type Department Care Team (Late st Contact Info) Description 07/01/2024 2:30 PM EDT - 07/01/2024 3:30 PM EDT Surgery [place] [address] Lizzette Hayden MD [facility] [place] [address] CARDIAC CATHETERIZATION Social History Tobacco Use Types Packs/Day Years Used Date Smoking Tobacco: Former Cigarettes 4 30 1 12/01/1961 - 10/01/1992 Smokeless Tobacco: Former Chew Comments:Denies vaping Alcohol Use Standard Drinks/Week Comments Yes 0 (1 standard drink = 0.6 oz pur e alcohol) twice a year [facility] Utilities Answer Date Recorded In the past 12 months has th e electric, gas, oil, or water [employer] threatened to shut off services in your [...] time in the past 12 m [facility], were you homeless or living in a nursing home (including now)? No 07/01/2024 DH IPV [...] HLD, migraines, DM2, and UC who [facility] and was transferred to [facility] for NSTEMI found to [...] He was discharged with 6 days of [id number] mg BID after receiving 1 day of [...] Jardiance allergy. PCP Contact Information: Deacon Watters, PIT MANAGER [address] [facility] / [facility] [address] Discharge Diagnoses (Hospital Problems) and Secondary Diagnoses [...] #HTN #HLD Mr. Rodriguez was transferred to [facility] for NSTEMI with trops of 4143 and 20,000 at the OSH, where he was loaded with ASA, plavix and started on heparin gtt. At [facility], his trops trended down [...] dose. Would consider changes to his regimen mcc to reduce the A1c. #GERD He takes [...] urinary tract infection. Cardiac Catheterization: ([facility]) RIGHT dominance LVEDP 10 Artery [...] 9:00 AM Dion Osullivan MD Gastroenterology at [facility] Arrive at: Shirt Folding Machine Operator Area [phone] 09/01/2024 11:20 AM Gómez Mercer MD Dermatology at [facility] Arrive at: Shirt Folding Machine Operator [address] [place] [address] 09/21/2024 2:45 PM Trung Hoyos MD Pain and Spine Center at [facility] Arrive at: Shirt Folding Machine Operator Area [phone] Future Orders Complete By Expires Referral to Cardiac Rehab [[id number] Custom] As directed Process Instructions: If no progress note charted, please enter Clinical details in comments. Scheduling Instructions: Questions: My question or request is: NSTEMI, PCI, HFrEF- cardiac rehab at [facility] Referral to Cardiology [REF12 Custom] As directed Process Instructions: If no progress note charted, please enter Clinical details in comments. Scheduling Instructions: Questions: My question or request is: NEW PATIENT - hospital follow up for NSTEMI s/p PCI to LCx and new HFrEF, does not have appt on [employer] please call him with appt slot General [...] appointments: During 8am-5pm Thursday through Thursday call [phone] to speak with a nurse in the cardiology clinic All other times call [phone] and ask to speak to the supervisor photoengraving station chief. Home oxygen therapy: none Arrangements for VNA/home care: none Follow up Appointments: Future Appointments Date Time Provider Department Center 08/15/2024 9:00 AM Dion Osullivan MD [facility] GASTRO [facility] 09/01/2024 11:20 AM Gómez Mercer MD [facility] 09/21/2024 2:45 PM Trung Hoyos MD [facility] Pain Sp [facility] Transformer [employer] Winder: [facility] - referral sent and they are aware you need an appointment. If they do not reach out to you with an appointment in 1 week, call and ask for the cardiology clinic. PCP: Deacon Watters APRN at [phone] on July 08 at 4 PM Your Inpatient Doctor(s) at [facility]: Armond Denny MD - Attending physician Your Primary Care Provider: Deacon Watters APRN [address] / [facility] [address] If you have non-emergent questions between now and the time of your follow up appointments: During 8am-5pm Thursday through Thursday call [phone] to speak with a nurse in the cardiology clinic All other times call [phone] and ask to speak to the supervisor photoengraving station chief. Provider Contact Information: Deacon Watters APRN [address] [facility] / [facility] [address] Discharge References/Attachments: Discharge References/Attachments None For questions regarding this document or issues relating to this hospitalization on the Medical Service, please contact your inpatient physician through the [facility] Cattle Farmer . Issues afterhours and on weekends will be handled by the [employer] staff on-call. Signed: Ronel Hensley MD Internal [...] appointments: During 8am-5pm Thursday through Thursday call [phone] to speak with a nurse in the cardiology clinic All other times call [phone] and ask to speak to the supervisor photoengraving station chief. Home oxygen therapy: none Arrangements for VNA/home care: none Follow up Appointments: Future Appointments Date Time Provider Department Center 08/15/2024 9:00 AM Dion Osullivan MD [facility] GASTRO [facility] 09/01/2024 11:20 AM Gómez Mercer MD [facility] 09/21/2024 2:45 PM Trung Hoyos MD [facility] Pain Sp [facility] Transformer Coil Winder: [facility] - referral sent and they are aware you need an appointment. If they do not reach out to you with an appointment in 1 week, call and ask for the cardiology clinic. PCP: Deacon Watters APRN at [phone] on July 08 at 4 PM Your Inpatient Doctor(s) at [facility]: Armond Denny MD - Attending physician Your Primary Care Provider: Deacon Watters APRN [address] [place] [phone] If you have non-emergent questions between now and the time of your follow up appointments: During 8am-5pm Thursday through Thursday call [phone] to speak with a nurse in the cardiology clinic All other times call [phone] and ask to speak to the supervisor photoengraving station chief. documented in this encounter Medications at Time [...] migraines, DM2, and UC whowas transferred to [facility] for NSTEMI and now [...] performed by Dion Osullivan MD at [facility] END[facility]COPY PRO COLONOSCOPY, BIOPSY N/A 02/22/2019 COLONOSCOPY FLEXIBLE, WITH BX (WRVU 3.66) performed by Dion Osullivan MD at [facility] PRO COLONOSCOPY, BIOPSY N/A 03/28/2022 COLONOSCOPY FLEXIBLE, WITH BX (WRVU 3.66) performed by Mona Turner MD at [facility] PRO COLONOSCOPY, BIOPSY N/A 01/20/2024 COLONOSCOPY FLEXIBLE, WITH BX (WRVU 3.56) performed by Anthony Hamlin MD at [facility] PRO COLONOSCOPY, DIAGNOSTIC 11/27/2011 COLONOSCOPY, DIAGNOSTIC performed by Dion OSULLIVAN at [facility] PRO COLONOSCOPY, DIAGNOSTIC 07/13/2014 COLONOSCOPY, DIAGNOSTIC performed by Dion Osullivan MD at [facility] PRO COLONOSCOPY, REMV LESN, SNARE N/A 02/22/2019 COLONOSCOPY, POLYPECTOMY, REMOVAL LESION BY SNARE (WRVU 4.67) performed by Dion Osullivan MD at [facility] PRO COLONOSCOPY, REMV LESN, SNARE N/A 02/26/2021 COLONOSCOPY, POLYPECTOMY, REMOVAL LESION BY SNARE (WRVU 4.67) performed by Dion Osullivan MD at [facility] PRO SIGMOIDOSCOPY, DIAGNOSTIC 03/16/2012 FLEXIBLE SIGMOIDOSCOPY performed by YUDI MALLOY at [facility] PRO UPPER GI ENDOSCOPY, DIAGNOSTIC N/A 04/28/2019 EGD, UPPER GI ENDOSCOPY performed by Iza Coates MD at [facility] UPPER GI ENDOSCOPY, EXAM 10/01/2012 UPPER GI ENDOSCOPY performed by Dion OSULLIVAN at [facility] Social History: Home set-up: Lives on the first floor of a two level home in [place], [place] Stairs: FOS with bilateral rails vs a few stairs through the back to the first level, 8 step between rooms Bathroom Set-up: Tub-shower with grab bars, no shower chair Baseline Mobility: Ambulates without an assistive device. Independent with I/ADLs, including driving. 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 He enjoys taking care of his property including niid.toing wood. He sleeps in a flat bed. 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 [...] Moderate Complexity Evaluation Qing Braxton, PT Pager: [phone] Physical Therapy Inpatient Rehabilitation Department * Day, Tray Bassett OT - 07/04/2024 9:40 AM EDT Occupational Therapy Evaluation Patient profile: Brian Rodriguez is a 74 y.o. male admitted on 06/30/2024 with PMHx of HTN, HLD, migraines, DM2, and UC who was transferred to [facility] for NSTEMI and now found to have HFrEF. Pt now s/p PCIto LCX. Past Medical History: Diagnosis Date Asthma 10/01/2011 Diabetes mellitus 10/01/2011 GERD (gastroesophageal reflux disease) 10/01/2011 Hearing loss 10/01/2011 Hydrocele 10/01/2011 Ulcerative colitis 10/01/2011 Past Surgical History: Procedure Laterality Date PRO COLONOSCOPY, BIOPSY N/A 02/12/2017 COLONOSCOPY FLEXIBLE, WITH BX (WRVU 3.66) performed by Dion Osullivan MD at [facility] PRO COLONOSCOPY, BIOPSY N/A 02/22/2019 COLONOSCOPY FLEXIBLE, WITH BX (WRVU 3.66) performed by Dion Osullivan MD at [facility] PRO COLONOSCOPY, BIOPSY N/A 03/28/2022 COLONOSCOPY FLEXIBLE, WITH BX (WRVU 3.66) performed by Mona Turner MD at [facility] PRO COLONOSCOPY, BIOPSY N/A 01/20/2024 COLONOSCOPY FLEXIBLE, WITH BX (WRVU 3.56) performed by Anthony Hamlin MD at [facility] PRO COLONOSCOPY, DIAGNOSTIC 11/27/2011 COLONOSCOPY, DIAGNOSTIC performed by Dion OSULLIVAN at [facility] PRO COLONOSCOPY, DIAGNOSTIC 07/13/2014 COLONOSCOPY, DIAGNOSTIC performed by Dion Osullivan MD at [facility] PRO COLONOSCOPY, REMV LESN, SNARE N/A 02/22/2019 COLONOSCOPY, POLYPECTOMY, REMOVAL LESION BY SNARE (WRVU 4.67) performed by Dion Osullivan MD at [facility] PRO COLONOSCOPY, REMV LESN, SNARE N/A 02/26/2021 COLONOSCOPY, POLYPECTOMY, REMOVAL LESION BY SNARE (WRVU 4.67) performed by Dion Osullivan MD at [facility] PRO SIGMOIDOSCOPY, DIAGNOSTIC 03/16/2012 FLEXIBLE SIGMOIDOSCOPY performed by YUDI MALLOY at [facility] PRO UPPER GI ENDOSCOPY, DIAGNOSTIC N/A 04/28/2019 EGD, UPPER GI ENDOSCOPY performed by Iza Coates MD at [facility] UPPER GI ENDOSCOPY, EXAM 10/01/2012 UPPER GI ENDOSCOPY performed by Dion OSULLIVAN at [facility] Social History: Home set-up: Lives on the first floor of a two level home in [place], [place] Stairs: FOS with bilateral rails vs a few stairs through the back to the first level, 8 step between rooms Bathroom Set-up: Tub-shower with grab bars, no shower chair Baseline Mobility: Ambulates without an assistive device. Independent with I/ADLs, including driving. 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 He enjoys taking care of his property including [employer]. He sleeps in a flat bed. 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 [...] evaluation only Total Minutes, Occupational Therapy: 39 (5640-2449AM; Eval; 1 unit) 2017 OT Evaluation Code [...] and measurable assessment of functional outcome. Pager: [phone] Tray Logan OTR/L Occupational Therapy Rehabilitation Department * Armond Denny MD - 07/03/2024 7:03 AM EDT Inpatient Cardiology Progress Note Patient Name: Brian Rodriguez Date of Admission: 06/30/2024 ( Hospital Day 3 days ) Service: S2 ID: Brian Rodriguez is a 74 y.o. male with PMHx of HTN, HLD, migraines, DM2, and UC who presented [facility] for chest pain and was transferred to [facility] for NSTEMI found to [...] 1809 PROBNP 2,259* Trops: OSH 4143 >20,000>> [facility] 1234 and 1274 06/30 [...] urinary tract infection. Cardiac Catheterization: ([facility]) RIGHT dominance LVEDP 10 Artery [...] DM2, and UC who was transferred to [facility] for NSTEMI and now [...] 7.3. Will need outpatient follow up for mcc changes. - holding home glipizide and metformin [...] Katia Reid MD Internal Medicine PGY-3 Pager [phone], M1-S2 Service CARDIOLOGY STAFF NOTE I have personally interviewed and examined the patient and reviewed appropriate data, including labs, ECGs and other diagnostic studies. I agree with the principal findings documented above. The assessment and plan were formulated in discussion with me. Armond Denny MD, [facility] Staff [employer] solar manufacturer's representative * Armond Denny MD - 07/02/2024 6:17 AM EDT Inpatient Cardiology Progress Note Patient Name: Brian M Rodriguez Date of Admission: 06/30/2024 ( Hospital Day 2 days ) Service: S2 ID: Brian Rodriguez is a 74 y.o. male with PMHx of HTN, HLD, migraines, DM2, and UC [facility] transferred to [facility] for NSTEMI found to [...] 1809 PROBNP 2,259* Trops: OSH 4143 >20,000>> [facility] 1234 and 1274 06/30 [...] urinary tract infection. Cardiac Catheterization: ([facility]) RIGHT dominance LVEDP 10 Artery [...] DM2, and UC who was transferred to [facility] for NSTEMI and now [...] 7.3. Will need outpatient follow up for neon sign mechanic changes. - holding home glipizide and metformin [...] Ronel Hensley MD Internal Medicine PGY-1 Pager [phone], M1-S2 Service CARDIOLOGY STAFF NOTE I have personally interviewed and examined the patient and reviewed appropriate data, including labs, ECGs and other diagnostic studies. I agree with the principal findings documented above. The assessment and plan were formulated in discussion with me. Armond Denny MD, [facility] Staff [employer] solar manufacturer's representative * Armond Denny MD - 07/01/2024 6:15 AM EDT Inpatient Cardiology Progress Note Patient Name: Brian Rodriguez Date of Admission: 06/30/2024 ( Hospital Day 1 day ) Service: S2 ID: Brian Rodriguez is a 74 y.o. male with PMHx of HTN, HLD, migraines, DM2, and UC who presented [facility] for chest pain and was transferred to [facility] for NSTEMI found to have HFrEF. Active Problems: Active Hospital Problems Diagnosis NSTEMI (non-ST elevated myocardial infarction) Resolved Hospital Problems No resolved problems to display. 24 hr events: Yesterday - transferred to [facility] for NSTEMI Overnight - [...] 1809 PROBNP 2,259* Trops: OSH 4143 >20,000>> [facility] 1234 and 1274 last [...] DM2, and UC who was transferred to [facility] for NSTEMI and now [...] 7.3. Will need outpatient follow up for neon sign mechanic changes. - holding home glipizide and metformin [...] Ronel Hensley MD Internal Medicine PGY-1 Pager [phone], M1-S2 Service CARDIOLOGY STAFF NOTE I have personally interviewed and examined the patient and reviewed appropriate data, including labs, ECGs and other diagnostic studies. I agree with the principal findings documented above. The assessment and plan were formulated in discussion with me. Plan for cath today and introduction of full complement of medical therapies for ACS/HFrEF. Armond Denny MD, [facility] Staff [employer] solar manufacturer's representative documented in this encounter H&P Notes * Joshua Díazdot Woodard, PIT MANAGER - 07/01/2024 9:33 AM EDT Images from [...] PCP: Deacon Watters APRN PCP phone #: [phone] ID/Chief Complaint: Brian Rodriguez is a 74 y.o. male with PMHx of HTN, HLD, migraines, DM2, and UC who presented to [facility] for chest pain and was transferred to [facility] for NSTEMI. History of [...] infarction) Ulcerative colitis Colonoscopy 04/08/10 (Dr. Gomes [facility]) - inflammation only within the rectum and sigmoid; extent of the exam was to the hepatic flexure; biopsies proximal to the sigmoid nl Repeat exam 11/27/11 ([facility] [...] ascending colon. Several HPs and one TA. Maple 03/2022 - [place] 1 limited to rectosigmoid, [...] in the last 7068 hours. Invalid input(s): [id number] Heme: No results for input(s): LDH, HAPTOGLOBIN, [...] DM2, and UC who was transferred to [facility] for NSTEMI. Given Brian's [...] Admit to Cardiology, S2 Team Pager # [phone] #NSTEMI > trops elevated to 4143 and 20,000 at OSH - s/p ASA and Plavix load - heparin gtt - continue 81 mg ASA - continue 75 mg plavix - repeat EKG with posterior leads - restarted atorvastatin 80 mg - TTE pending - trending trops here - NPO at midnight for [facility] tomorrow #Migraines - holding propranolol [...] in an outpatient cardiac rehabilitation program at [facility] was discussed. Patient agrees to a [...] Operative Note Patient Name: Brian Rodriguez : [id number] MR#: [id number] Case Date: 07/01/2024 Surgeon: Surgeons and Role: [...] 07/01/2024 12:11 PM EDT Brian completed a [place] Advanced directive and stated that if he [...] surrogate would be surrogate decision maker per [place] surrogate decision making law. (Only good for 180 days) Any patient receiving care in [place] must abide by [place] law. The hierarchy for surrogate decision making [...] (i) The agent with financial power of sales support administrator or a conservator appointed in accordance with [...] were you homeless or living in a nursing home (including now)?: No In the past 12 months has the [employer], gas, oil, or water [employer] threatened to shut off services in your [...] Current DME: none Home Address confirmed as: [address] [place] [address] Social & Family Supports: All names listed below confirmed with patient as current and correct Extended Emergency Contact Information Primary Emergency Contact: Sabrina Eisenberg Address: [address] [place] [phone] [facility] Mobile Relation: Child Secondary Emergency Contact: Enrique [...] Yes ; Prescription Coverage: Yes Preferred Pharmacy: [facility] [address] [address] [place] Status: Patient is a : No Primary Care Provider confirmed: Deacon Watters, PIT MANAGER [phone] Potential Needs for Transition of Care: none [...] 9:00 AM EDT [place] [address] Dion Osullivan MD [facility] [place] [address] 09/01/2024 9:40 AM EDT Office Visit Cardiology at [address] [phone] Franky Shaver MD [facility] [place] [address] 09/01/2024 11:20 AM EDT Office Visit Dermatology at [address] [address] Gómez Mercer MD [facility] DR EDDIE [place] [address] 09/21/2024 2:45 PM EDT Office Visit [place] [id number] Trung Hoyos MD [facility] [place] [address] Scheduled Referrals Name Type Priority Associated Diagnoses [...] EDT URINALYSIS BEAKER MICROSCPIC REFLEX EXAM ([facility]) Routine 07/03/2024 3:02 PM EDT [...] - 199 mg/dL 07/04/2024 2:12 PM EDT [facility] Comment:Supplemental ranges: <140 mg/dL before meals <180 mg/dL all other times of the day. Blood CAPILLARY BLOOD / Unknown 07/04/2024 1:49 PM EDT 07/04/2024 2:12 PM EDT Armond Denny MD POINT OF CARE TEST O CEE Performing Organization Address [facility] Co de Phone Number [facility] [place] [address] * (ABNORMAL) POC, GLUCOSE (07/04/2024 11:55 AM EDT) Glucometer, POC 287(H) 65 - 199 mg/dL 07/04/2024 11:55 AM EDT [facility] Comment:Supplemental ranges: <140 mg/dL before meals <180 mg/dL all other times of the day. Blood CAPILLARY BLOOD / Unknown 07/04/2024 11:55 AM EDT 07/04/2024 11:55 AM EDT Armond Denny MD POINT OF CARE TEST O RDMELISSA [facility] [place] [address] * (ABNORMAL) POC, GLUCOSE (07/04/2024 11:18 AM EDT) Glucometer, POC 259(H) 65 - 199 mg/dL 07/04/2024 11:32 AM EDT [facility] Comment:Supplemental ranges: <140 mg/dL before meals <180 mg/dL all other times of the day. Blood CAPILLARY BLOOD / Unknown 07/04/2024 11:18 AM EDT 07/04/2024 11:32 AM EDT Armond Denny MD POINT OF CARE TEST O DANIELERAOMAR Performing Organization Address City/[facility] Co de Phone Number [facility] [place] [address] * POC, GLUCOSE (07/04/2024 8:04 AM EDT) Glucometer, POC 111 65 - 199 mg/dL 07/04/2024 8:04 AM EDT [facility] Comment:Supplemental ranges: <140 mg/dL before meals <180 mg/dL all other times of the day. Blood CAPILLARY BLOOD / Unknown 07/04/2024 8:04 AM EDT 07/04/2024 8:04 AM EDT Armond Denny MD POINT OF CARE TEST O CEE Performing Organization Address City/[facility]/ZIP Co de Phone Number [facility] [place] [address] * Magnesium (07/04/2024 1:43 AM EDT) Magnesium 0.80 0.69 - 1.07 mMol/L 07/04/2024 2:23 AM EDT [facility] Blood VENOUS BLOOD SPECIMEN / Unknown IP Care Team Draw / Unknown 07/04/2024 1:43 AM EDT 07/04/2024 1:52 AM EDT Triston Godinez MD CHEMISTRY ORDERABLES [facility] [place] [address] * (ABNORMAL) Basic Metabolic Panel (07/04/2024 1:43 AM EDT) Glucose 156 65 - 199 mg/dL 07/04/2024 2:23 AM EDT [facility] Comment:Glucose Concentratio n >=200 mg/dL plus symptoms is consistent with Diabetes Mellitus. Blood Urea Nitrogen 12 10 - 20 mg/dL 07/04/2024 2:[facility] Creatinine 1.27 0.80 - 1.50 [...] 8.5 - 10.5 mg/dL 07/04/2024 2:23 AM [facility] Est Glomerular Filtration Rate - [...] AM EDT Triston Godinez MD CHEMISTRY ORDERABLES [facility] [place] [address] * (ABNORMAL) CBC (with Diff) (07/04/2024 1:43 AM EDT) White Blood Cell 5.05 4.00 - 9.50 x10(3)/mc L [facility]04[facility]2024 2[facility] Red Blood Cell 3.11(L) 4.58 - 5.54 x10(6)/mc L 07/04/2024 2:00 [facility] Hemoglobin 10.5(L) 13.7 - 16.5 g/dL 07/04/2024 2:00 AM [facility] Hematocrit 31.5(L) 40.5 - 48.5 % 07/04/2024 2:00 AM [facility] Mean Cell Volume 101.3(H) 82.9 - 93.1 fL 07/04/2024 2:00 AM [facility] - 0.40 x10(3)/mc L 07/04/2024 2:00 AM [facility] Basophil % 0.6 % 07/04/2024 2:00 AM [facility] Baso Absolute 0.03 0.00 - 0.10 x10(3)/mc L 07/04/2024 2:00 AM [facility] Immature Gran % 0.4 % 2:00 AM EDT [facility] Immature Gran Absolute 0.02 0.00 - 0.04 x10(3)/mc L 07/04/2024 2:00 AM EDT [facility] Blood VENOUS BLOOD SPECIMEN / Unknown IP Care Team Draw / Unknown 07/04/2024 1:43 AM EDT 07/04/2024 1:52 AM EDT Triston Godinez MD HEMATOLOGY ORDERABLE S Performing Organization Address [facility]/ZIP Co de Phone Number [facility] [place] [address] * (ABNORMAL) POC, GLUCOSE (07/03/2024 8:02 PM EDT) Glucometer, POC 251(H) 65 - 199 mg/dL 07/03/2024 8:02 PM EDT [facility] Comment:Supplemental ranges: <140 mg/dL before meals <180 mg/dL all other times of the day. Blood CAPILLARY BLOOD / Unknown 07/03/2024 8:02 PM EDT 07/03/2024 8:02 PM EDT Armond Denny MD POINT OF CARE TEST O CEE Performing Organization Address [facility] Co de Phone Number [facility] [place] [address] * (ABNORMAL) POC, GLUCOSE (07/03/2024 4:47 PM EDT) Glucometer, POC 217(H) 65 - 199 mg/dL 07/03/2024 4:47 PM EDT [facility] Comment:Supplemental ranges: <140 mg/dL before meals <180 mg/dL all other times of the day. Blood CAPILLARY BLOOD / Unknown 07/03/2024 4:47 PM EDT 07/03/2024 4:47 PM EDT Armond Denny MD POINT OF CARE TEST O RDERABLES Performing Organization Address [facility]/ZIP Co de Phone Number [facility] [place] [address] * (ABNORMAL) Urine culture (07/03/2024 3:02 PM EDT) Urine Culture 50,000-99,000 cfu/ml Escherichia coli(A) VITEK 2 METHOD 07/05/2024 8:01 AM EDT [facility] Urine Culture 10,000-49,000 cfu/ml mixed mucosal harika VITEK 2 METHOD 07/05/2024 8:01 AM EDT [facility] Urine URINE SPECIMEN OBTAINED BY [...] - GENER AL ORDERABLES Performing Organization Address City/[facility]/ZIP Co de Phone Number [facility] [place] [address] * (ABNORMAL) Urinalysis Microscopic Reflex to Culture (07/03/2024 3:02 PM EDT) RBC, Urine 2 0 - 3 /HPF 07/03/2024 3:40 PM EDT [facility] WBC, Urine 55(H) 0 - 3 /HPF 07/03/2024 3:40 PM EDT [facility] Squamous Epithelial Cells, Urine 1 0 - 5 /HPF 07/03/2024 3:40 PM EDT [facility] Hyaline Casts, Urine 3(H) 0 - 2 /LPF 07/03/2024 3:40 PM EDT [facility] Comment 07/03/2024 3:40 PM EDT [facility] Comment:Interpret results wi th caution, microscopic results are from a suboptimal specimen. Bacteria, Urine Many(A) None /HPF 3:40 PM EDT [facility] Urine URINE SPECIMEN OBTAINED BY CLEAN CATCH PROCEDURE / Unknown Non Blood Collection / Unknown 07/03/2024 3:02 PM EDT 07/03/2024 3:13 PM EDT Armond Denny MD URINE ORDERABLES Performing Organization Address [facility] de Phone Number [facility] [place] [address] * Urinalysis Microscopic with Reflex to Culture (07/03/2024 3:02 PM EDT) Urine URINE SPECIMEN OBTAINED BY CLEAN CATCH PROCEDURE / Unknown Non Blood Collection / Unknown 07/03/2024 3:02 PM EDT 07/03/2024 3:13 PM EDT Armond Denny MD URINE ORDERABLES Performing Organization Address [facility] Co de Phone Number [facility] [place] [address] * (ABNORMAL) Urinalysis with reflex Culture (07/03/2024 3:02 PM EDT) Glucose, Urine Dipstick Negative Negative 07/03/2024 3:40 PM EDT [facility] Protein, Urine Dipstick 30 mg/dL(A) Negative 07/03/2024 3:40 PM EDT [facility] Bilirubin, Urine Dipstick Small(A) Negative 07/03/2024 3:40 PM EDT [facility] Comment:Clinical correlation required for positive Urine Bilirubin results as false positive may occur with some drugs and drug related products. If a false positive is suspected a serum total bilirubin should be considered if clinically indicated. Urobilinogen, Urine Dipstick Normal Normal, 0.2 mg/dL, 1.0 mg/dL 07/03/2024 3:40 PM EDT [facility] pH, Urine (dipstick) 5.5 5.0 - 8.0 07/03/2024 3:40 PM EDT [facility] Blood, Urine Dipstick Negative Negative 07/03/2024 3:40 PM EDT [facility] Ketone, Urine Dipstick Trace(A) Negative 07/03/2024 3:40 PM EDT [facility] Nitrite, Urine Dipstick Positive(A) Negative 07/03/2024 3:40 PM EDT [facility] Leukocytes, Urine Dipstick Moderate(A) Negative 07/03/2024 3:40 PM EDT [facility] Specific [place] Urine Automated 1.024 1.005 - 1.030 07/03/2024 3:40 PM [facility] Appearance, Urine Dipstick Cloudy(A) Clear 07/03/2024 3:40 PM EDT [facility] Color, Urine Dipstick Dark Yellow Yellow, Dark Yellow 07/03/2024 3:40 PM EDT [facility] Urine URINE SPECIMEN OBTAINED BY CLEAN CATCH PROCEDURE / Unknown Non Blood Collection / Unknown 07/03/2024 3:02 PM EDT 07/03/2024 3:13 PM EDT Armond Denny MD URINE ORDERABLES [facility] [place] [address] * POC, GLUCOSE (07/03/2024 11:21 AM EDT) Glucometer, POC 177 65 - 199 mg/dL 07/03/2024 11:21 AM EDT [facility] Comment:Supplemental ranges: <140 mg/dL before meals <180 mg/dL all other times of the day. Blood CAPILLARY BLOOD / Unknown 07/03/2024 11:21 AM EDT 07/03/2024 11:21 AM EDT Armond Denny MD POINT OF CARE TEST O CEE Performing Organization Address City/[facility]/ZIP Co de Phone Number [facility] [place] [address] * POC, GLUCOSE (07/03/2024 7:24 AM EDT) Glucometer, POC 124 65 - 199 mg/dL 07/03/2024 7:24 AM EDT [facility] Comment:Supplemental ranges: <140 mg/dL before meals <180 mg/dL all other times of the day. Blood CAPILLARY BLOOD / Unknown 07/03/2024 7:24 AM EDT 07/03/2024 7:24 AM EDT Armond Denny MD POINT OF CARE TEST O CEE [facility] [place] [address] * Magnesium (07/03/2024 4:02 AM EDT) Magnesium 0.86 0.69 - 1.07 mMol/L 07/03/2024 4:41 AM EDT [facility] Blood VENOUS BLOOD SPECIMEN / Unknown IP Care Team Draw / Unknown 07/03/2024 4:02 AM EDT 07/03/2024 4:07 AM EDT Triston Godinez MD CHEMISTRY ORDERABLES [facility] [place] [address] * Basic Metabolic Panel (07/03/2024 4:02 AM EDT) Glucose 146 65 - 199 mg/dL 07/03/2024 4:41 AM [facility] Comment:Glucose Concentratio n >=200 mg/dL plus symptoms is consistent with Diabetes Mellitus. Blood Urea Nitrogen 15 10 - 20 mg/dL 07/03/2024 4:41 AM EDT [facility] Creatinine 1.25 0.80 - 1.50 mg/dL 07/03/2024 4:41 AM [facility] Sodium 138 135 - 145 mMol/L 07/03/2024 4:41 AM [facility] Potassium 3.6 3.5 - 5.0 mMol/L 07/03/2024 4:41 AM [facility] Chloride 105 98 - 107 mMol/L 07/03/2024 4:41 AM [facility] Carbon Dioxide 22 22 - 31 mMol/L 07/03/2024 4:41 AM [facility] Anion Gap 11 5 - 15 mMol/L 07/03/2024 4:41 AM [facility] Calcium 9.2 8.5 - 10.5 mg/dL 07/03/2024 4:41 AM [facility] Est Glomerular Filtration Rate - Male 60 mL/min/1. 73 m?? 07/03/2024 4:41 AM [facility] Comment: [...] AM EDT Triston Godinez MD CHEMISTRY ORDERABLES [facility] [place] [address] * (ABNORMAL) CBC (with Diff) (07/03/2024 4:02 AM EDT) White Blood Cell 5.90 4.00 - 9.50 x10(3)/mc L 07/03/2024 4:13 AM EDT [facility] Red Blood Cell 3.27(L) 4.58 - 5.54 x10(6)/mc L 07/03/2024 4:13 AM EDT [facility] Hemoglobin 11.0(L) 13.7 - 16.5 g/dL 07/03/2024 4:13 AM [facility] Hematocrit 33.1(L) 40.5 - 48.5 % 07/03/2024 4:13 AM EDT [facility] Mean Cell Volume 101.2(H) 82.9 - 93.1 fL 07/03/2024 4:13 AM EDT [facility] Mean Cell Hemoglobin 33.6(H) 27.5 - 32.1 pg 07/03/2024 4:13 AM [facility] Mean Cell Hemoglobin Concentration 33.2 32.0 - 35.7 g/dL 07/03/2024 4:13 AM EDT [facility] Platelet 156 145 - 357 x10(3)/mc L 07/03/2024 4:[facility] Mean Platelet Volume 11.3 7.6 - 12.9 fL 07/03/2024 4:13 AM EDT [facility] RDW Standard Deviation 47.5(H) 36.0 - 45.0 fL 07/03/2024 4:13 AM [facility] RDW coefficient of variation 12.7 11.4 - 13.8 % 07/03/2024 4:13 AM [facility] NRBC% auto 0.0 % 07/03/2024 4:13 AM [facility] NRBC Absolute 0.00 0.00 - 0.00 x10(3)/mc L 07/03/2024 4:13 AM [facility] Neutrophil % 70.0 % 07/03/2024 4:13 AM [facility] Neutrophil Absolute 4.13 1.70 - 6.10 x10(3)/mc L 07/03/2024 4:13 AM [facility] Lymph % 18.3 % 07/03/2024 4:13 AM [facility] Lymph Absolute 1.08 0.90 - 3.20 x10(3)/mc L 07/03/2024 4:13 AM [facility] Monocyte % 8.5 % 07/03/2024 4:13 AM [facility] Monocyte Absolute 0.50 0.30 - 0.90 x10(3)/mc L 07/03/2024 4:13 AM [facility] Eos % 2.4 % 07/03/2024 4:13 AM [facility] Eos Absolute 0.14 0.00 - 0.40 x10(3)/mc L 07/03/2024 4:13 AM [facility] Basophil % 0.5 % 07/03/2024 4:13 AM [facility] Baso Absolute 0.03 0.00 - 0.10 x10(3)/mc L 07/03/2024 4:13 AM [facility] Immature Gran % 0.3 % 4:13 AM [facility] Immature Gran Absolute 0.02 0.00 - 0.04 x10(3)/mc L 07/03/2024 4:13 AM EDT [facility] Blood VENOUS BLOOD SPECIMEN / Unknown IP Care Team Draw / Unknown 07/03/2024 4:02 AM EDT 07/03/2024 4:07 AM EDT Triston Godinez MD HEMATOLOGY ORDERABLE S Performing Organization Address [facility] Co de Phone Number [facility] [place] [address] * (ABNORMAL) POC, GLUCOSE (07/02/2024 8:45 PM EDT) Glucometer, POC 271(H) 65 - 199 mg/dL 07/02/2024 8:46 PM EDT [facility] Comment:Supplemental ranges: <140 mg/dL before meals <180 mg/dL all other times of the day. Blood CAPILLARY BLOOD / Unknown 07/02/2024 8:45 PM EDT 07/02/2024 8:46 PM EDT Armond Denny MD POINT OF CARE TEST O CEE Performing Organization Address [facility] de Phone Number [facility] [place] [address] * (ABNORMAL) POC, GLUCOSE (07/02/2024 4:18 PM EDT) Glucometer, POC 213(H) 65 - 199 mg/dL 07/02/2024 4:19 PM EDT [facility] Comment:Supplemental ranges: <140 mg/dL before meals <180 mg/dL all other times of the day. Blood CAPILLARY BLOOD / Unknown 07/02/2024 4:18 PM EDT 07/02/2024 4:19 PM EDT Armond Denny MD POINT OF CARE TEST O CEE Performing Organization Address [facility] Co de Phone Number [facility] [place] [address] * (ABNORMAL) POC, GLUCOSE (07/02/2024 11:21 AM EDT) Glucometer, POC 234(H) 65 - 199 mg/dL 07/02/2024 11:21 AM EDT [facility] Comment:Supplemental ranges: <140 mg/dL before meals <180 mg/dL all other times of the day. Blood CAPILLARY BLOOD / Unknown 07/02/2024 11:21 AM EDT 07/02/2024 11:21 AM EDT Armond Denny MD POINT OF CARE TEST O CEE Performing Organization Address City/[facility]/ZIP Co de Phone Number [facility] [place] [address] * POC, GLUCOSE (07/02/2024 7:28 AM EDT) Glucometer, POC 171 65 - 199 mg/dL 07/02/2024 7:28 AM EDT [facility] Comment:Supplemental ranges: <140 mg/dL before meals <180 mg/dL all other times of the day. Blood CAPILLARY BLOOD / Unknown 07/02/2024 7:28 AM EDT 07/02/2024 7:28 AM EDT Armond Denny MD POINT OF CARE TEST O CEE [facility] [place] [address] * Magnesium (07/02/2024 7:12 AM EDT) Magnesium 0.89 0.69 - 1.07 mMol/L 07/02/2024 8:09 AM EDT [facility] Blood VENOUS BLOOD SPECIMEN / Unknown IP Care Team Draw / Unknown 07/02/2024 7:12 AM EDT 07/02/2024 7:19 AM EDT Triston Godinez MD CHEMISTRY ORDERABLES [facility] [place] [address] * Basic Metabolic Panel (07/02/2024 7:12 AM EDT) Glucose 161 65 - 199 mg/dL 07/02/2024 8:[facility] AM [facility] Comment:Glucose Concentratio n >=200 mg/dL plus symptoms is consistent with Diabetes Mellitus. Blood Urea Nitrogen 13 10 - 20 mg/dL 07/02/2024 8:09 AM [facility] Creatinine 1.18 0.80 - 1.50 mg/dL 07/02/2024 8:09 AM [facility] Sodium 136 135 - 145 mMol/L 07/02/2024 8:09 AM [facility] Potassium 3.6 3.5 - 5.0 mMol/L 07/02/2024 8:09 AM [facility] Chloride 104 98 - 107 mMol/L 07/02/2024 8:09 AM [facility] Carbon Dioxide 24 22 - 31 mMol/L 07/02/2024 8:09 AM [facility] Anion Gap 8 5 - 15 mMol/L 07/02/2024 8:09 AM [facility] Calcium 8.8 8.5 - 10.5 mg/dL 07/02/2024 8:09 AM [facility] Est Glomerular Filtration Rate - Male 64 mL/min/1. 73 m?? 07/02/2024 8:09 AM [facility] Comment: [...] AM EDT Triston Godinez MD CHEMISTRY ORDERABLES [facility] [place] [address] * (ABNORMAL) CBC (with Diff) (07/02/2024 7:12 AM EDT) White Blood Cell 5.99 4.00 - 9.50 x10(3)/mc L 07/02/2024 7:41 AM [facility] Red Blood Cell 3.36(L) 4.58 - 5.54 x10(6)/mc L 07/02/2024 7:41 AM EDT [facility] Hemoglobin 11.3(L) 13.7 - 16.5 g/dL 07/02/2024 7:41 AM [facility] Hematocrit 34.3(L) 40.5 - 48.5 % 07/02/2024 7:41 AM [facility] Mean Cell Volume 102.1(H) 82.9 - 93.1 fL 07/02/2024 7:41 AM [facility] Mean Cell Hemoglobin 33.6(H) 27.5 - 32.1 pg 07/02/2024 7:41 AM [facility] Mean Cell Hemoglobin Concentration 32.9 32.0 - 35.7 g/dL 07/02/2024 7:41 AM [facility] Platelet 155 145 - 357 x10(3)/mc L 07/02/2024 7:41 AM [facility] Mean Platelet Volume 11.3 7.6 - 12.9 fL 07/02/2024 7:41 AM [facility] RDW Standard Deviation 48.2(H) 36.0 - 45.0 fL 07/02/2024 7:41 AM [facility] RDW coefficient of variation 12.9 11.4 - 13.8 % 07/02/2024 7:41 AM [facility] NRBC% auto 0.0 % 07/02/2024 7:41 AM [facility] NRBC Absolute 0.00 0.00 - 0.00 x10(3)/mc L 07/02/2024 7:41 AM [facility] Neutrophil % 75.2 % 07/02/2024 7:41 AM [facility] Neutrophil Absolute 4.50 1.70 - 6.10 x10(3)/mc L 07/02/2024 7:41 AM [facility] Lymph % 14.0 % 07/02/2024 7:41 AM [facility] Lymph Absolute 0.84(L) 0.90 - 3.20 x10(3)/mc L 07/02/2024 7:41 AM [facility] Monocyte % 8.7 % 07/02/2024 7:41 AM [facility] Monocyte Absolute 0.52 0.30 - 0.90 x10(3)/mc L 07/02/2024 7:41 AM [facility] Eos % 1.3 % 07/02/2024 7:41 AM [facility] Eos Absolute 0.08 0.00 - 0.40 x10(3)/mc L 07/02/2024 7:41 AM [facility] Basophil % 0.5 % 07/02/2024 7:41 AM [facility] Baso Absolute 0.03 0.00 - 0.10 x10(3)/mc L 07/02/2024 7:41 AM [facility] Immature Gran % 0.3 % 7:41 AM [facility] Immature Gran Absolute 0.02 0.00 - 0.04 x10(3)/mc L 07/02/2024 7:41 AM EDT [facility] Blood VENOUS BLOOD SPECIMEN / Unknown IP Care Team Draw / Unknown 07/02/2024 7:12 AM EDT 07/02/2024 7:19 AM EDT Triston Godinez MD HEMATOLOGY ORDERABLE S [facility] [place] [address] * CT Abdomen & Pelvis w Contrast (07/02/2024 3:13 AM EDT) WORKSTATION ID [id number] RAD Anatomical Region Laterality Modality Abdomen, Pelvis [...] who have questions please contact the health critical care rn that requested your imaging first. ? Narrative [...] patients who have questions please contactthe health critical care rn that requested your imaging first. Triston Godinez MD IMG CT ORDERABLES * POC, GLUCOSE (07/01/2024 7:58 PM EDT) Glucometer, POC 84 65 - 199 mg/dL 07/01/2024 7:59 PM EDT [facility] Comment:Supplemental ranges: <140 mg/dL before meals <180 mg/dL all other times of the day. Blood CAPILLARY BLOOD / Unknown 07/01/2024 7:58 PM EDT 07/01/2024 7:59 PM EDT Armond Denny MD POINT OF CARE TEST O RDERABLES Performing Organization Address [facility] Co de Phone Number [facility] [place] [address] * POC, GLUCOSE (07/01/2024 6:41 PM EDT) Glucometer, POC 91 65 - 199 mg/dL 07/01/2024 6:41 PM EDT [facility] Comment:Supplemental ranges: <140 mg/dL before meals <180 mg/dL all other times of the day. Blood CAPILLARY BLOOD / Unknown 07/01/2024 6:41 PM EDT 07/01/2024 6:41 PM EDT Armond Denny MD POINT OF CARE TEST O RDMELISSA Performing Organization Address [facility] Co de Phone Number [facility] [place] [address] * EKG 12 Lead (07/01/2024 5:24 PM EDT) Ventricular rate 77 BPM MUSE SYSTEM Atrial Rate 77 BPM MUSE SYSTEM P-R Interval 178 ms MUSE SYSTEM QRS Duration 138 ms MUSE SYSTEM Q-T Interval 418 ms MUSE SYSTEM QTC Calculated (Bezet) 473 ms MUSE SYSTEM Calculated P [place] 63 degrees MUSE SYSTEM Calculated R [place] 87 degrees MUSE SYSTEM Calculated T [place] 8 degrees MUSE SYSTEM INTERPRETATION Normal sinus [...] Modality Other Narrative 07/01/2024 7:47 PM EDT ?[facility] ? Cardiac Catheterization/Intervention Report ? Patient Name: Brian Rodriguez. ? Procedure Date: 07/01/2024 ? A #: [id number] ? Primary Physician: Mogadam, Emad ? Case #: [id number] ? File Name: [id number] ? Catheterization Order Number: [id number] ? [facility] ? Final Report [place], [place] ? Patient Name: ? Brian M. Rodriguez ?ID#: ?[id number] ? : ?1950 ? Procedure Date: ? July 01, 2024 ? Case #: ? [id number] ? Room: ? 5 ? Case Physician: [...] procedure was Urgent. The indication for ?the cleaner laboratory equipment visit is ACS less than or equal [...] A premounted 2.75 x 22 mm [place] (EILEEN) was deployed ? with a maximum [...] dose administered prior to arrival in the cleaner laboratory equipment. ?Recommended anti-platelet/anti-thrombotic regimen: ?Continue aspirin 81 mg daily. ?Continue clopidogrel 75 mg daily. ?These recommendations are made at the time of the intervention. Patient ?and provider preferences or a changing clinical situation may require ?modification of this regimen. Consult [facility] Interventional Cardiology for ?questions. [...] against any medical treatment. Consult ?http://tools.acc.org/DAPTriskapp/#!/content/calculator/ or [facility] ?Interventional Cardiology for questions [...] Procedure Note Lizzette Hayden MD - 07/14/2024 [facility] Cardiac Catheterization/Intervention Report Patient Name: Brian Rodriguez Procedure Date: 07/01/2024 A #: [id number] Primary Physician: Lizzette Hayden Case #: [id number] File Name: [id number] Catheterization Order Number: [id number] [facility] FinalReport [place], [place] Patient Name: Brian Rodriguez ID#:[id number] :1950 Procedure Date: July 01, 2024 Case [...] patient was designated as ASA Class III. [facility] 4: Vulnerable. Diagnostic Tests: Medications Prior to Procedure: Aspirin, Angiotensin II Receptor Leo and Statin. Indications for Diagnostic Cath: The priority of the diagnostic procedure was Urgent. The indicationfor the cleaner laboratory equipment visit is ACS less than or equal [...] time was 37.0 minutes, dose area product [id number] Gy/cm2 and air kerma was 1,874 mGY. [...] The lesion was predilated with a 2.50mm [id number] MM balloon with a maximum inflation pressure of 14atmospheres. A premounted 2.75 x 22 mm [place] (EILEEN) wasdeployed with a maximum inflation pressure [...] dose administered prior to arrival in the cleaner laboratory equipment. Recommended anti-platelet/anti-thrombotic regimen: Continue aspirin 81 mg daily. Continue clopidogrel 75 mg daily. These recommendations are made at the time of the intervention.Patient and provider preferences or a changing clinical situation mayrequire modification of this regimen. Consult [facility] Interventional Cardiologyfor questions. This [...] or against any medical treatment.Consult http://tools.acc.org/DAPTriskapp/#!/content/calculator/ or [facility] Interventional Cardiology for questions [...] - 199 mg/dL 07/01/2024 11:35 AM EDT [facility] Comment:Supplemental ranges: <140 mg/dL before meals <180 mg/dL all other times of the day. Blood CAPILLARY BLOOD / Unknown 07/01/2024 11:35 AM EDT 07/01/2024 11:35 AM EDT Armond Denny MD POINT OF CARE TEST O RDERABLES [facility] [place] [address] * (ABNORMAL) Hemogram (07/01/2024 10:32 AM EDT) [...] - 357 x10(3)/mc L 07/01/2024 11:20 AM [facility] Mean Platelet Volume 11.4 7.6 - 12.9 fL 07/01/2024 11:20 AM [facility] RDW Standard Deviation 46.5(H) 36.0 - 45.0 fL 07/01/2024 11:20 AM [facility] RDW coefficient of variation 12.9 11.4 - 13.8 % 07/01/2024 11:20 AM [facility] NRBC% auto 0.0 % 07/01/2024 11:20 AM [facility] NRBC Absolute 0.00 0.00 - 0.00 x10(3)/mc L 07/01/2024 11:20 AM [facility] Blood VENOUS BLOOD SPECIMEN / Unknown IP Care Team Draw / Unknown 07/01/2024 10:32 AM EDT 07/01/2024 10:54 AM EDT Armond Denny MD HEMATOLOGY ORDERABLE S Performing Organization Address [facility] Co de Phone Number [facility] [place] [address] * Heparin (unfractionated) Level (07/01/2024 10:32 AM EDT) UF Heparin 0.31 IU/mL 07/01/2024 11:25 AM EDT [facility] Comment: Heparin (anti-Xa) levels should [...] MD HEMATOLOGY ORDERABLE S Performing Organization Address City/[facility]/ZIP Co de Phone Number [facility] [place] [address] * POC, GLUCOSE (07/01/2024 7:18 AM EDT) Glucometer, POC 105 65 - 199 mg/dL 07/01/2024 7:19 AM EDT [facility] Comment:Supplemental ranges: <140 mg/dL before meals <180 mg/dL all other times of the day. Blood CAPILLARY BLOOD / Unknown 07/01/2024 7:18 AM EDT 07/01/2024 7:19 AM EDT Triston Godinez MD POINT OF CARE TEST O RDERABLES Performing Organization Address [facility]/ZIP Co de Phone Number [facility] [place] [address] * Heparin (unfractionated) Level (07/01/2024 3:15 AM EDT) UF Heparin 0.36 IU/mL 07/01/2024 4:23 AM EDT [facility] Comment: Heparin (anti-Xa) levels should [...] MD HEMATOLOGY ORDERABLE S Performing Organization Address City/[facility]/ZIP Co de Phone Number [facility] [place] [address] * (ABNORMAL) CBC (with Diff) (07/01/2024 3:15 AM EDT) White Blood Cell 5.82 4.00 - 9.50 x10(3)/mc L 07/01/2024 3:54 AM [facility] Red Blood Cell 3.60(L) 4.58 - 5.54 x10(6)/mc L 07/01/2024 3:54 AM [facility] Hemoglobin 11.9(L) 13.7 - 16.5 g/dL 07/01/2024 3:54 AM [facility] Hematocrit 35.6(L) 40.5 - 48.5 % 07/01/2024 3:54 AM [facility] Mean Cell Volume 98.9(H) 82.9 - 93.1 fL 07/01/2024 3:54 AM [facility] Mean Cell Hemoglobin 33.1(H) 27.5 - 32.1 pg 07/01/2024 3:54 AM [facility] Mean Cell Hemoglobin Concentration 33.4 32.0 - 35.7 g/dL 07/01/2024 3:54 AM [facility] Platelet 169 145 - 357 x10(3)/mc L 07/01/2024 3:54 AM [facility] Mean Platelet Volume 11.6 7.6 - 12.9 fL 07/01/2024 3:54 AM [facility] RDW Standard Deviation 46.3(H) 36.0 - 45.0 fL 07/01/2024 3:54 AM [facility] RDW coefficient of variation 12.8 11.4 - 13.8 % 07/01/2024 3:54 AM [facility] NRBC% auto 0.0 % 07/01/2024 3:54 AM [facility] NRBC Absolute 0.00 0.00 - 0.00 x10(3)/mc L 07/01/2024 3:54 AM [facility] Neutrophil % 66.6 % 07/01/2024 3:54 AM [facility] Neutrophil Absolute 3.87 1.70 - 6.10 x10(3)/mc L 07/01/2024 3:54 AM EDT [facility] Lymph % 20.4 % 07/01/2024 3:54 AM EDT [facility] Lymph Absolute 1.19 0.90 - 3.20 x10(3)/mc L 07/01/2024 3:54 AM EDT [facility] Monocyte % 9.6 % 07/01/2024 3:54 AM EDT [facility] Monocyte Absolute 0.56 0.30 - 0.90 x10(3)/mc L 07/01/2024 3:54 AM EDT [facility] Eos % 2.6 % 07/01/2024 3:54 AM EDT [facility] Eos Absolute 0.15 0.00 - 0.40 x10(3)/mc L 07/01/2024 3:54 AM EDT [facility] Basophil % 0.5 % 07/01/2024 3:54 AM EDT [facility] Baso Absolute 0.03 0.00 - 0.10 x10(3)/mc L 07/01/2024 3:54 AM EDT [facility] Immature Gran % 0.3 % 3:54 AM EDT [facility] Immature Gran Absolute 0.02 0.00 - 0.04 x10(3)/mc L 07/01/2024 3:54 AM EDT [facility] Blood VENOUS BLOOD SPECIMEN / Unknown IP Care Team Draw / Unknown 07/01/2024 3:15 AM EDT 07/01/2024 3:37 AM EDT Triston Godinez MD HEMATOLOGY ORDERABLE S [facility] [place] [address] * Magnesium (06/30/2024 11:25 PM EDT) Magnesium 0.84 0.69 - 1.07 mMol/L 07/01/2024 12:14 AM [facility] Blood VENOUS BLOOD SPECIMEN / Unknown IP Care Team Draw / Unknown 06/30/2024 11:25 PM EDT 06/30/2024 11:47 PM EDT Triston Godinez MD CHEMISTRY ORDERABLES [facility] [place] [address] * (ABNORMAL) Basic Metabolic Panel (06/30/2024 11:25 PM EDT) Glucose 145 65 - 199 mg/dL 07/01/2024 12:14 AM [facility] Comment:Glucose Concentratio n >=200 mg/dL plus symptoms is consistent with Diabetes Mellitus. Blood Urea Nitrogen 10 10 - 20 mg/dL 07/01/2024 12:14 AM [facility] Creatinine 1.02 0.80 - 1.50 mg/dL 07/01/2024 12:14 AM [facility] Sodium 141 135 - 145 mMol/L 07/01/2024 12:14 AM [facility] Potassium 3.4(L) 3.5 - 5.0 mMol/L 07/01/2024 12:14 AM [facility] Chloride 106 98 - 107 mMol/L 07/01/2024 12:14 AM [facility] Carbon Dioxide 25 22 - 31 mMol/L 07/01/2024 12:14 AM [facility] Anion Gap 10 5 - 15 mMol/L 07/01/2024 12:14 AM [facility] Calcium 9.2 8.5 - 10.5 mg/dL 07/01/2024 12:14 AM [facility] Est Glomerular Filtration Rate - Male 76 mL/min/1. 73 m?? 07/01/2024 12:14 AM [facility] Comment: [...] Foundation Fasting Status 07/01/2024 12:14 AM EDT [facility] Blood VENOUS BLOOD SPECIMEN / Unknown IP Care Team Draw / Unknown 06/30/2024 11:25 PM EDT 06/30/2024 11:47 PM EDT Triston Godinez MD CHEMISTRY ORDERABLES [facility] [place] [address] * (ABNORMAL) Troponin-T, Yuriy Sensitivity 3 Hour (06/30/2024 11:25 PM EDT) Troponin-T, High Sensitivity 1,274(H) <=22 ng/L 07/01/2024 12:14 AM EDT [facility] Comment: This patient's troponin T concentration was determined using the Vai 5th Generation troponin T assay. According to [...] [facility] Test Catalog Troponin - https://one-.testcatalog.org/catalogs/565/files/22178 Reference: Fourth [place] Definition of Myocardial Infarction. Journal of the [place] [employer] 2018;72:2508-8466 Troponin-T, HS 3 hr delta 65 ng/L 07/01/2024 12:14 AM EDT [facility] Comment:The 3 hour Troponin T delta value is the absolute difference between the Troponin T concentrations of the initial and subsequent sample collected between 2 h: 45 min and 6 h following the initial collection Blood VENOUS BLOOD SPECIMEN / Unknown IP Care Team Draw / Unknown 06/30/2024 11:25 PM EDT 06/30/2024 11:47 PM EDT Triston Godinez MD CHEMISTRY ORDERABLES [facility] [place] [address] * (ABNORMAL) Troponin-T, High Sensitivity 1 Hour (06/30/2024 8:22 PM EDT) Troponin-T, High Sensitivity 1,234(H) <=22 ng/L 06/30/2024 9:22 PM EDT [facility] Comment: This patient's troponin T [...] troponin value can be found in the [facility] Test Catalog Troponin - https://[facility]-.testcatalog.org/catalogs/565/files/02080 Reference: Fourth [place] Definition of Myocardial Infarction. Journal of the [place] [employer] 2018;72:3342-6959 Troponin-T, HS 1 hr delta 06/30/2024 9:22 PM EDT [facility] Comment:Delta troponin value not calculated, sample collected outside of delta calculation time limit. Blood VENOUS BLOOD SPECIMEN / Unknown Venipuncture / Unknown 06/30/2024 8:22 PM EDT 06/30/2024 8:40 PM EDT Triston Godinez MD CHEMISTRY ORDERABLES Performing Organization Address [facility]/ZIP Co de Phone Number [facility] [place] [address] * POC, GLUCOSE (06/30/2024 7:56 PM EDT) Glucometer, POC 144 65 - 199 mg/dL 06/30/2024 7:57 PM EDT [facility] Comment:Supplemental ranges: <140 mg/dL before meals <180 mg/dL all other times of the day. Blood CAPILLARY BLOOD / Unknown 06/30/2024 7:56 PM EDT 06/30/2024 7:57 PM EDT Triston Godinez MD POINT OF CARE TEST O RDERABLES Performing Organization Address City/[facility]/ZIP Co de Phone Number [facility] [place] [address] * XR Abdomen Flat & Upright (06/30/2024 6:56 PM EDT) WORKSTATION ID [id number] RAD Anatomical Region Laterality Modality Abdomen N/A Digital Radiogra phy Impressions 06/30/2024 9:12 PM EDT No obstruction or perforation. Thank you for letting us participate in the care of this patient. ??If you are a health care provider and have any questions regarding this report, please contact the number below. ??For patients who have questions please contact the health critical care rn that requested your imaging first. ? Narrative [...] patients who have questions please contactthe health critical care rn that requested your imaging first. Triston Godinez MD IMG DX ORDERABLES * (ABNORMAL) Troponin-T, High Sensitivity (06/30/2024 6:09 PM EDT) Troponin-T, High Sensitivity Initial 1,209(HHH ) <=22 ng/L 06/30/2024 7:23 PM EDT [facility] Comment: This patient's troponin T [...] troponin value can be found in the [facility] Test Catalog Troponin - https://[facility]-.testcatalog.org/catalogs/565/files/90063 Reference: Fourth [place] Definition of Myocardial Infarction. Journal of the [place] [employer]iology 2018;72:4500-1947 Blood VENOUS BLOOD SPECIMEN / Unknown Venipuncture / Unknown 06/30/2024 6:09 PM EDT 06/30/2024 6:18 PM EDT Triston Godinez MD CHEMISTRY ORDERABLES [facility] [place] [address] * (ABNORMAL) Basic Metabolic Panel (06/30/2024 6:09 PM EDT) Glucose 06/30/2024 8:08 PM [facility] Comment:Insufficient sample. Informed Alli Meyers at 20:07, 06.30.2024. Blood Urea Nitrogen 10 10 - 20 mg/dL 06/30/2024 8:08 PM [facility] Creatinine 0.98 0.80 - 1.50 mg/dL 06/30/2024 8:08 PM [facility] Sodium 140 135 - 145 mMol/L 06/30/2024 8:08 PM [facility] Potassium 4.2 3.5 - 5.0 mMol/L 06/30/2024 8:08 PM [facility] Chloride 105 98 - 107 mMol/L 06/30/2024 8:08 PM [facility] Carbon Dioxide 21(L) 22 - 31 mMol/L 06/30/2024 8:08 PM [facility] Anion Gap 14 5 - 15 mMol/L 06/30/2024 8:08 PM [facility] Calcium 06/30/2024 8:08 PM [facility] Comment:Insufficient sample. Informed Alli Meyers at 20:07, 06.30.2024. Est Glomerular Filtration Rate - Male 80 mL/min/1. 73 m?? 06/30/2024 8:08 PM [facility] Comment: This [...] Foundation Fasting Status Yes 06/30/2024 8:08 PM [facility] Blood VENOUS BLOOD SPECIMEN / Unknown Venipuncture / Unknown 06/30/2024 6:09 PM EDT 06/30/2024 6:18 PM EDT Triston Godinez MD CHEMISTRY ORDERABLES [facility] [place] [address] * Lipid Panel (Reflex Direct LDL) (06/30/2024 6:09 PM EDT) Cholesterol, Total 197 mg/dL 06/30/2024 6:51 PM EDT [facility] Comment: Desirable: < 200 mg/dL Borderline High: 200 - 239 mg/dL High: > or = 240 mg/dL Triglyceride 230 mg/dL 06/30/2024 6:51 PM EDT [facility] Comment: Normal: <150 mg/dL Borderline High: 150-199 mg/dL High: 200-499 mg/dL Very High: > or =500 mg/dL HDL Cholesterol 36 mg/dL 6:51 PM EDT [facility] Comment:Males: High Risk: <4 0 mg/dL LDL Cholesterol 120 mg/dL 6:51 PM EDT [facility] Comment: Desirable: <100 mg/dL Above Desirable: 100-129 mg/dL Borderline High: 130-159 mg/dL High: 160-189 mg/dL Very High: > or =190 mg/dL Note: LDL calculation updated to the NIH LDL formula as of 06/26/2024 Non-HDL Cholesterol 161 mg/dL 06/30/2024 6:51 PM EDT [facility] Comment: Desirable: <130 mg/dL Above Desirable: 130-159 mg/dL Borderline High: 160-189 mg/dL High: 190-219 mg/dL Very High: > or = 220 mg/dL Blood VENOUS BLOOD SPECIMEN / Unknown Venipuncture / Unknown 06/30/2024 6:09 PM EDT 06/30/2024 6:18 PM EDT Narrative [facility] - 06/30/2024 6:51 PM EDT [...] ACC/AHA Guidelines (most recently Brianne et al. [facility] 08/26/22): * For individuals with atherosclerotic [...] Godinez MD CHEMISTRY ORDERABLES Performing Organization Address City/[facility]/ZIP Co de Phone Number [facility] [place] [address] * (ABNORMAL) pro-Brain Natriuretic Peptide (06/30/2024 6:09 PM EDT) NT-proBNP 2,259(H) <=449 pg/mL 06/30/2024 6:51 PM EDT [facility] Blood VENOUS BLOOD SPECIMEN / Unknown Venipuncture / Unknown 06/30/2024 6:09 PM EDT 06/30/2024 6:18 PM EDT Triston Godinez MD CHEMISTRY ORDERABLES Performing Organization Address City/[facility]/ZIP Co de Phone Number [facility] [place] [address] * TSH (06/30/2024 6:09 PM EDT) Pathologist [facility] Thyroid Stimulating Hormone 2.80 0.27 - 4.20 mcIU/mL 06/30/2024 6:51 PM EDT [facility] Blood VENOUS BLOOD SPECIMEN / Unknown Venipuncture / Unknown 06/30/2024 6:09 PM EDT 06/30/2024 6:18 PM EDT Triston Godinez MD CHEMISTRY ORDERABLES Performing Organization Address City/[facility]/ZIP Co de Phone Number [facility] [place] [address] * Heparin (unfractionated) Level (06/30/2024 6:08 PM EDT) Pathologist [facility] UF Heparin 0.07 IU/mL 06/30/2024 6:34 PM EDT [facility] Comment: Heparin (anti-Xa) levels should [...] EDT Triston Godinez MD HEMATOLOGY ORDERABLE S [facility] [place] [address] * (ABNORMAL) CBC (with Diff) (06/30/2024 6:08 PM EDT) White Blood Cell 6.45 4.00 - 9.50 x10(3)/mc L 06/30/2024 6:36 PM EDT [facility] Red Blood Cell 3.78(L) 4.58 - 5.54 x10(6)/mc L 06/30/2024 6:36 PM EDT [facility] Hemoglobin 12.7(L) 13.7 - 16.5 g/dL 06/30/2024 6:36 PM EDT [facility] Hematocrit 38.0(L) 40.5 - 48.5 % 06/30/2024 6:36 PM EDT [facility] Mean Cell Volume 100.5(H) 82.9 - 93.1 fL 06/30/2024 6:36 PM EDT [facility] Mean Cell Hemoglobin 33.6(H) 27.5 - 32.1 pg 06/30/2024 6:36 PM EDT [facility] Mean Cell Hemoglobin Concentration 33.4 32.0 - 35.7 g/dL 06/30/2024 6:[facility] Platelet 79(L) 145 - 357 x10(3)/mc L 06/30/2024 6:36 PM [facility] Mean Platelet Volume 11.2 7.6 - 12.9 fL 06/30/2024 6:36 PM [facility] RDW Standard Deviation 48.4(H) 36.0 - 45.0 fL 06/30/2024 6:36 PM [facility] RDW coefficient of variation 13.0 11.4 - 13.8 % 06/30/2024 6:36 PM [facility] NRBC% auto 0.0 % 06/30/2024 6:36 PM [facility] NRBC Absolute 0.00 0.00 - 0.00 x10(3)/mc L 06/30/2024 6:36 PM [facility] Neutrophil % 71.2 % 06/30/2024 6:36 PM [facility] Neutrophil Absolute 4.59 1.70 - 6.10 x10(3)/mc L 06/30/2024 6:36 PM [facility] Lymph % 18.1 % 06/30/2024 6:36 PM [facility] Lymph Absolute 1.17 0.90 - 3.20 x10(3)/mc L 06/30/2024 6:36 [facility] Monocyte % 8.2 % 06/30/2024 6:36 PM [facility] Monocyte Absolute 0.53 0.30 - 0.90 x10(3)/mc L 06/30/2024 6:36 PM [facility] Eos % 1.7 % 06/30/2024 6:36 PM [facility] Eos Absolute 0.11 0.00 - 0.40 x10(3)/mc L 06/30/2024 6:36 PM [facility] Basophil % 0.6 % 06/30/2024 6:36 PM EDT [facility] Baso Absolute 0.04 0.00 - 0.10 x10(3)/mc L 06/30/2024 6:36 PM EDT [facility] Immature Gran % 0.2 % 6:36 PM EDT [facility] Immature Gran Absolute 0.01 0.00 - 0.04 x10(3)/mc L 06/30/2024 6:36 PM EDT [facility] Blood VENOUS BLOOD SPECIMEN / Unknown Venipuncture / Unknown 06/30/2024 6:08 PM EDT 06/30/2024 6:18 PM EDT Triston Godinez MD HEMATOLOGY ORDERABLE S [facility] [place] [address] * (ABNORMAL) Hemoglobin A1c (06/30/2024 6:08 PM EDT) Hemoglobin A1c 7.3(H) 4.3 - 5.6 % 06/30/2024 9:03 PM EDT [facility] Comment: Per ADA guidelines, without [...] blood cell turnover may not be sales support representative of glycemic control. Reference Interval: 4.3 - 5.6% 5.7 - 6.4%: Consistent with prediabetes >=6.5%: Consistent with diagnosis of diabetes mellitus Estimated Average Glucose 06/30/2024 9:03 PM EDT [facility] Comment:Not Calculated. Blood VENOUS BLOOD SPECIMEN / Unknown Venipuncture / Unknown 06/30/2024 6:08 PM EDT 06/30/2024 6:18 PM EDT Narrative [facility] - 06/30/2024 9:03 PM EDT Estimated average glucose (eAG) is calculated from the equation described in: John ELLISON, Inna J, Nic R, et al. ??Translating the A1C assay into estimated average glucose values. ??Diabetes Care 2008:31(8):7505-7629. Additional resources are available on the ADA website (diabetes.org). Triston Godinez MD CHEMISTRY ORDERABLES Performing Organization Address [facility] Co de Phone Number [facility] [place] [address] * POC, GLUCOSE (06/30/2024 5:58 PM EDT) [facility] Glucometer, POC 148 65 - 199 mg/dL 06/30/2024 5:58 PM EDT [facility] Comment:Supplemental ranges: <140 mg/dL before meals <180 mg/dL all other times of the day. Blood CAPILLARY BLOOD / Unknown 06/30/2024 5:58 PM EDT 06/30/2024 5:58 PM EDT Tritson Godinez MD POINT OF CARE TEST O RDERABLES Performing Organization Address [facility] Co de Phone Number [facility] [place] [address] * EKG 12 Lead (06/30/2024 5:23 PM EDT) Ventricular rate 73 BPM MUSE SYSTEM Atrial Rate 300 BPM MUSE SYSTEM QRS Duration 72 ms MUSE SYSTEM Q-T Interval 404 ms MUSE SYSTEM QTC Calculated (Bezet) 445 ms MUSE SYSTEM Calculated P [place] 71 degrees MUSE SYSTEM Calculated R [place] 65 degrees MUSE SYSTEM Calculated T [place] 30 degrees MUSE SYSTEM INTERPRETATION Normal sinus [...] NSTEMI (non-ST elevation myocardial infarction) Exam Location: [facility]. ? Conclusions -Left ventricular systolic function is moderately reduced. The left ventricular ejection fraction is 36% by Dowd's biplane. The anterolateral and inferolateral bar[place]ona are akinetic. The anterior wall is hypokinetic. -Right ventricle is mildly dilated. Systolic function is normal. -No significant valve disease. -See report for additional findings. No prior study is available. Procedure Complete-[id number]. Image enhancement Optison was used for left ventricular opacification. Suboptimal quality. There is normal sinus rhythm. Occasional ectopic beats. Left Ventricle Left ventricle is of normal size. Mildly increased thickness of the basal septum with no obstruction to LV outflow. There is no ventricular septal defect. Left ventricular systolic function is moderately reduced. The left ventricular ejection fraction is 36% by Odwd's biplane. There are segmental wall motion abnormalities. [...] NSTEMI (non-ST elevation myocardial infarction) Exam Location: [facility]. Conclusions -Left ventricular systolic function is moderately reduced. The leftventricular ejection fraction is 36% by Dowd's biplane. The anterolateral andinferolateral bar[place]ona are akinetic. The anterior wall is hypokinetic. -Right ventricle is mildly dilated. Systolic function is normal. -No significant valve disease. -See report for additional findings. No prior study is available. Procedure Complete-[id number]. Image enhancement Optison was used for left [...] (Bezet) 460 ms MUSE SYSTEM Calculated P [place] 69 degrees MUSE SYSTEM Calculated R [place] 78 degrees MUSE SYSTEM Calculated T [place] 39 degrees MUSE SYSTEM INTERPRETATION Sinus rhythm [...] hours., Routine 0808 (Given - Provider: Sujata uDncan RN)1121 (Given - Provider: Sujata Duncan RN)1619 [...] RN)1500 (Due - Provider: Iram De Jesus [facility]) tamsulosin (Flomax) capsule 0.8 mg 0.8 mg, [...] Routine documented in this encounter Care Teams Kiln Remover Relationship Specialty Start Date End Date Deacon Watters APRN [address] [place] [address] [address] [place] [address] PCP - General Family Medicine 02/17/22 documented as of this encounter
--- OUTSIDE RECORDS SUMMARY | 2024-07-18 14:27 | XMS_ITS | Encounter Summary ---
Author Organization [facility] Address [facility] [place] [address] Care Team Providers Care Finished Goods Stock Clerk Name Role Phone Duong Deacon Wells APRN Primary Care Provider [phone]- [phone] Encounter Details Date Type Department Care Team [...] 9:00 AM EDT Office [place] [address] Dion Barlow MD [facility] [place] [address] 09/01/2024 9:40 AM EDT Office Visit Cardiology at [address] [phone] Franky Shaver MD [facility] [place] [address] 09/01/2024 11:20 AM EDT Office Visit Dermatology at [facility] [address] [place] [address] Gómez Mercer MD [facility] DR [place] [address] 09/21/2024 2:45 PM EDT Office Visit [facility] [place] [phone] Trung Hoyos MD [facility] [place] [address] documented as of this encounter Visit Diagnoses Not on filedocumented in this encounter Care Teams Finished Goods Stock Clerk Relationship Specialty Start Date End Date Deacon Watters, JAZMINE [address] [place] [address] PCP - General Family Medicine 02/17/22 documented as of this encounter
--- OUTSIDE RECORDS SUMMARY | 2024-07-18 14:28 | XMS_ITS | Encounter Summary ---
Author Organization [facility] Address [facility] [place] [address] Care Team Providers Care Building Maintenance Worker Name Role Phone Duong Deacon Wells APRN Primary Care Provider +1- [phone] Encounter Details Date Type Department Care Team (Latest Contact Info) Description 03/28/2022 2:03 PM EDT - 03/28/2022 5:24 PM EDT Hospital En[place] [address] Mona Turner MD [facility] [place] [address] Discharge Disposition: Home Social History Tobacco Use [...] occurs, please contact your Doctor. Please call [phone] before 8pm Mon-Fri with problems, questions or concerns. If you call after 8pm or on weekends, call the Hospital at [phone] and ask to speak to the Atm Mechanic web content & social media manager and the journeyman press operator will contact that person for you. When should you call for help? Call 446 anytime you think you may need emergency [...] any problems. Where can you learn more? [facility] View your After Visit Summary and more online at [email or web address] If you would like to provide [...] cost to you. Content Version: 12.2 ?? [id number] [employer]. Care instructions adapted under license by [facility]. If you have questions about a medical condition or this instruction, always ask your healthcare professional. [employer] disclaims any warranty or liability for your [...] 9:00 AM EDT Office [place] [phone] Dion Barlow MD [facility] [place] [address] 09/01/2024 9:40 AM EDT Office Visit Cardiology at [address] [phone] Franky Shaver MD [facility] [place] [address] 09/01/2024 11:20 AM EDT Office Visit Dermatology at [address] [address] Gómez Mercer MD [facility] DR EDDIE SANCHEZ-[place] [address] 09/21/2024 2:45 PM EDT Office Visit [place] [phone] Trung Hoyos MD [facility] [place] [address] documented as of this encounter Procedures Procedure Name Priority Date/Time Associated Diagnosis Comments SURGICAL PATHOLOGY REPORT Routine 03/28/2022 4:22 PM EDT SPECIMEN TO PATHOLOGY Routine 03/28/2022 4:22 PM EDT SPECIMEN TO PATHOLOGY Routine 03/28/2022 4:22 PM EDT SPECIMEN TO PATHOLOGY Routine 03/28/2022 4:22 PM EDT Colonoscopy, Biopsy ([id number]) 03/28/2022 3:30 PM EDT Other ulcerative colitis with rectal bleeding COLONOSCOPY Routine 03/28/2022 3:15 PM EDT documented in this encounter Results * Surgical Pathology Report (03/28/2022 4:22 PM EDT) Final Diagnosis [id number] ? Location: 4T; EA12; A The signing [...] Christina Verified: ??04/03/2022 15:08 ??Pathologist Performed at: ??-[facility] Dept. of Pathology, [place], [place] SPECIMEN(S) SUBMITTED A - Sigmoid bx, [...] labeled C1. ??shb 04/03/2022 3:08 PM EDT [facility] GI Biopsy 03/28/2022 4:22 PM EDT 03/28/2022 4:22 PM EDT GI Biopsy 03/28/2022 4:22 PM EDT 03/28/2022 4:22 PM EDT GI Biopsy 03/28/2022 4:22 PM EDT 03/28/2022 4:22 PM EDT Mona Turner MD PATHOLOGY/CYTOLOGY O CEE [facility] [place] [address] * Specimen to Pathology (03/28/2022 4:22 PM EDT) AP Specimen 03/28/2022 4:22 PM EDT 03/28/2022 4:22 PM EDT Narrative [facility] - 03/28/2022 4:22 PM EDT Specimen requisition ordered. ??Separate Pathology report to follow Mona Turner MD PATHOLOGY/CYTOLOGY O CEE [facility] [place] [address] * Specimen to Pathology (03/28/2022 4:22 PM EDT) AP Specimen 03/28/2022 4:22 PM EDT 03/28/2022 4:22 PM EDT Narrative [facility] - 03/28/2022 4:22 PM EDT Specimen requisition ordered. ??Separate Pathology report to follow Mona Turner MD PATHOLOGY/CYTOLOGY O CEE Performing Organization Address [facility] [address] [facility] [place] [address] * Specimen to Pathology (03/28/2022 4:22 PM EDT) AP Specimen 03/28/2022 4:22 PM EDT 03/28/2022 4:22 PM EDT Narrative [facility] - 03/28/2022 4:22 PM EDT Specimen requisition ordered. ??Separate Pathology report to follow Mona Turner MD PATHOLOGY/CYTOLOGY Ozzie MIKE Performing Organization Address [facility] [address]/[facility] [place] [address] * COLONOSCOPY (03/28/2022 3:15 PM EDT) COLONOSCOPY [facility] Endoscopy Procedure Date: 03/28/2022 3:15 PM ? Patient Name: Brian Rodriguez ? Date of : 1950 ? Age: 71 ? Order #: [id number] ? Instrument Name: [id number] ? Procedure: ? Colonoscopy Indications: ? Follow-up of ulcerative colitis Providers: ? Mona Turner MD, April Augustine ? RONY Archibald, Shay Maynard MD: ?Davina Barlow MD, Deacon Dior ? [facility]: ? Midazolam 4 mg IV, Fentanyl 100 [...] ? was evaluated using the BBPS ? ([place] Bowel Preparation Scale) ? with scores of: [...] Procedure Code(s): ? --- Professional --- ? 39885, Colonoscopy, flexible; with ? removal of tumor(s), polyp(s), or ? other lesion(s) by snare technique ? 31030, 59, Colonoscopy, flexible; ? with biopsy, single or multiple CPT copyright 2020 [employer]. All rights reserved. The codes documented in this report are preliminary and upon cable rigger review may be revised to meet current compliance requirements. Attending Participation: ? I personally performed the entire procedure. ? Mona Turner MD _ Mona Turner MD 03/28/2022 4:33:58 PM This report has been signed electronically. Number of Addenda: 0 Note Initiated On: 03/28/2022 3:15 PM PROVATION 03/28/2022 3:15 PM EDT Deacon Watters USER SUPPORT SPECIALIST GENERAL SURGICAL O RDERABLES Performing Organization Address City/State/[facility] Co de Phone Number PROVATION documented [...] RN) documented in this encounter Care Teams Building Maintenance Worker Relationship Specialty Start Date End Date Deacon Watters, USER SUPPORT SPECIALIST [address] [place] [address] [address] [place] [address] PCP - General Family Medicine 02/17/22 documented as of this encounter
--- OUTSIDE RECORDS SUMMARY | 2024-07-18 14:28 | XMS_ITS | Encounter Summary ---
Author Organization [facility] [place] [address] Care Team Providers Care Tire And Tube Repairer Name Role Phone Deacon Watters APRN Primary Care Provider +1- [phone] Encounter Details Date Type Department Care Team (Late st Contact Info) Description 10/06/2022 Telephone [place] [address] Marcelle Weinberg DOOR TO DOOR SELLING DISTRIBUTOR [facility] [place] [address] Social History Tobacco Use Types Packs/Day Years [...] of this CT to Paula Alonso ( [facility]) and he would also give her office a call. documented in this encounter Plan of Treatment Upcoming Encounters Date Type Department Care Team (Late st Contact Info) Description 08/15/2024 9:00 AM EDT Office Visit [place] [address] Dion Barlow MD [facility] [address] 09/01/2024 9:40 AM EDT Office Visit Cardiology at [address] [address] Franky Shaver MD [facility] [place] [address] 09/01/2024 11:20 AM EDT Office Visit Dermatology at [facility] [address] [place] [address] Gmóez Mercer MD [facility] DR EDDIE [place] [address] 09/21/2024 2:45 PM EDT Office Visit [facility] [place] [address] Trung Hoyos MD [facility] [place] [address] documented as of this encounter Visit Diagnoses Not on filedocumented in this encounter Care Teams Tire And Tube Repairer Relationship Specialty Start Date End Date Deacon Watters, DOOR TO DOOR SELLING DISTRIBUTOR [address] [place] [address] PCP - General Family Medicine 02/17/22 documented as of this encounter
--- OUTSIDE RECORDS SUMMARY | 2024-07-18 14:28 | XMS_ITS | Encounter Summary ---
Author [place] [address] Care Team Providers Care Rn Prior Authorization Name Role Phone Deacon Watters APRN Primary Care Provider +1- [phone] Encounter Details Date Type Department Care Team (Late st Contact Info) Description 05/05/2022 [place] [address] Dianna Shen RN Social History Tobacco Use [...] - 05/23/2022 8:27 AM EDT Marbella from [facility] called to check on the status of this CT she can be reached at [phone]. * Telephone Encounter - Dianna Shen RN - 05/19/2022 11:04 AM EDT 05/16 TC to Brian to see where is at as far as abdominal pain. He states that pain has not improved. Asked if he has metal in his body and he states that he does. * Telephone Encounter - Dianna Shen RN - 05/05/2022 4:20 PM EDT left from radiology at [facility]. Due to contrast shortage, contrast IV is not being utilized for outpatient at their facility. They could schedule CT with oral only. Otherwise they are booking out to August for patients who need IV contrast. documented in this encounter Plan of Treatment Upcoming Encounters Date Type Department Care Team (Late st Contact Info) Description 08/15/2024 9:00 AM EDT Office [place] [address] Dion Barlow MD [facility] [place] [address] 09/01/2024 9:40 AM EDT Office Visit Cardiology at [address] [address] Franky Shaver MD [facility] [place] [address] 09/01/2024 11:20 AM EDT Office Visit Dermatology at [address] [place] [address] Gómez Mercer MD [facility] DR EDDIE [place] [address] 09/21/2024 2:45 PM EDT Office Visit Pain and Spine Center at [facility] [place] [address] Trung Hoyos MD [facility] [place] [address] documented as of this encounter Visit Diagnoses Not on filedocumented in this encounter Care Teams Rn Prior Authorization Relationship Specialty Start Date End Date Deacon Watters, JAZMINE [address] [place] [address] PCP - General Family Medicine 02/17/22 documented as of this encounter
--- OUTSIDE RECORDS SUMMARY | 2024-07-18 14:28 | XMS_ITS | Encounter Summary ---
[place] [address] Care Team Providers Care Carpet Installer Helper Name Role Phone Duong Deacon Wells APRN Primary Care Provider +1- [phone] Encounter Details Date Type Department Care Team (Late st Contact Info) Description 02/12/2023 Telephone [place] [phone] Kelly Castillo RN Social History Tobacco Use [...] local ER. He would likely go to [place] if this is the case. Will ask regular IBD team to f/u with him in the AM. documented in this encounter Plan of Treatment Upcoming Encounters Date Type Department Care Team (Late st Contact Info) Description 08/15/2024 9:00 AM EDT Office [place] [phone] Dion Barlow MD [facility] [place] [address] 09/01/2024 9:40 AM EDT Office Visit Cardiology at [address] [place] [phone] Franky Shaver MD [facility] [place] [address] 09/01/2024 11:20 AM EDT Office Visit Dermatology at [facility] [address] [place] [phone] Gómez Mercer MD [facility] [place] [address] 09/21/2024 2:45 PM EDT Office Visit [facility] [place] [address] Trung Hoyos MD [facility] [place] [address] documented as of this encounter Visit Diagnoses Not on filedocumented in this encounter Care Teams Carpet Installer Helper Relationship Specialty Start Date End Date Deacon Watters, JAZMINE [address] [place] [address] [address] [facility] [address] [place] [address] PCP - General Family Medicine 02/17/22 documented as of this encounter
--- OUTSIDE RECORDS SUMMARY | 2024-07-18 14:28 | XMS_ITS | Encounter Summary ---
Author Organization [facility] Address [facility] [place] [address] Care Team Providers Care Biometrics Specialist Name Role Phone DuongVeliakip Wells APRN Primary Care Provider +1- [phone] Encounter Details Date Type Department Care Team (Late st Contact Info) Description 02/26/2022 Orders [place] [address] Dianna Shen, RN Other ulcerative colitis with [...] 9:00 AM EDT Office [place] [phone] Dion Barlow MD [facility] [place] [address] 09/01/2024 9:40 AM EDT Office Visit Cardiology at [address] [phone] Franky Shaver MD [facility] [place] [address] 09/01/2024 11:20 AM EDT Office Visit Dermatology at [facility] [address] [place] [address] Gómez Mercer MD [facility] DR [place] [address] 09/21/2024 2:45 PM EDT Office Visit [place] [phone] Trung Hoyos MD [facility] [place] [address] documented as of this encounter Results * CRP, acute inflammation (09/29/2022 12:09 PM EST) Pathologist [facility] C-Reactive Protein <3.0 <=4.9 mg/L [facility] Blood 09/29/2022 12:0 9 PM EST 09/29/2022 12:15 PM EST Narrative Resulting Agency Comment Spec In Lab Marcelle Weinberg ANESTHESIA TECH CHEMISTRY ORDERAB LES [facility] [place] [address] * Sedimentation rate (09/29/2022 12:09 PM EST) Sedimentation Rate Automated 38 3 - 46 mm/hr [facility] Comment: Effective November 02, 2019 new capillary photometric technology has resulted in a change in reference ranges. It is recommended that each ESR result be reviewed with its own age appropriate reference range. Blood 09/29/2022 12:0 9 PM EST 09/29/2022 12:15 PM EST Narrative Resulting Agency Comment Spec In Lab Marcelle Weinberg ANESTHESIA TECH HEMATOLOGY ORDERA BLES [facility] [place] [address] documented in this encounter Visit Diagnoses Diagnosis Other ulcerative colitis with rectal bleeding documented in this encounter Care Teams Biometrics Specialist Relationship Specialty Start Date End Date Deacon Watters APRN [address] [place] [address] PCP - General Family Medicine 02/17/22 documented as of this encounter
--- OUTSIDE RECORDS SUMMARY | 2024-07-18 14:28 | XMS_ITS | Encounter Summary ---
[place] [address] Care Team Providers Care Design Drafter Name Role Phone Deacon Watters APRN Primary Care Provider +1- [phone] Encounter Details Date Type Department Care Team (Late st Contact Info) Description 02/26/2022 Telephone G[place]ology [place] [phone] Erika Armas Social History Tobacco Use Types [...] - 02/26/2022 1:04 PM EDT Brian Rodriguez [id number] Diagnosis/Indication: UC, restage disease and for surveillance [...] to patient: You must have a responsible constitution party who will drive you to your [...] 9:00 AM EDT Office Visit G[place] [address] Dion Barlow MD [facility] [place] [address] 09/01/2024 9:40 AM EDT Office Visit Cardiology at [address] [phone] Franky Shaver MD [facility] [place] [address] 09/01/2024 11:20 AM EDT Office Visit Dermatology at [facility] [address] [place] [address] Gómez Mercer MD [facility] DR [place] [address] 09/21/2024 2:45 PM EDT Office Visit Pain and Spine Center at [facility] [place] [address] Trung Hoyos MD [facility] [place] [address] documented as of this encounter Visit Diagnoses Not on filedocumented in this encounter Care Teams Design Drafter Relationship Specialty Start Date End Date Deacon Watters APRN [address] [place] [address] PCP - General Family Medicine 02/17/22 documented as of this encounter
--- OUTSIDE RECORDS SUMMARY | 2024-07-18 14:28 | XMS_ITS | Encounter Summary ---
Author Organization [facility] Address [facility] [place] [address] Care Team Providers Care Key Account Executive Name Role Phone Josue Wilkinson MD Primary Care Provider [phone] Encounter Details Date Type Department Care Team (Late st Contact Info) Description 02/26/2021 4:00 PM EDT - 02/26/2021 5:00 PM EDT Surgery [place] [address] Dion Barlow MD [facility] [place] [address] COLONOSCOPY, POLYPECTOMY, REMOVAL LESION BY SNARE (WRVU [...] to be checked. 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 Follow up care is a le [...] Office [place] [address] Dion Barlow MD [facility] [place] [address] 09/01/2024 9:40 AM EDT Office Visit Cardiology at [address] [place] [address] Franky Shaver MD [facility] [place] [address] 09/01/2024 11:20 AM EDT Office Visit Dermatology at [facility] [address] [place] [address] Gómez Mercer MD [facility] [place] [address] 09/21/2024 2:45 PM EDT Office Visit [facility] [place] [address] Trung Hoyos MD [facility] [place] [address] documented as of this encounter Procedures Procedure Name Priority Date/Time Associated Diagnosis Comments POCT GLUCOSE Routine 02/26/2021 5:51 PM EDT SPECIMEN TO PATHOLOGY Routine 02/26/2021 5:10 PM EDT SPECIMEN TO PATHOLOGY Routine 02/26/2021 5:10 PM EDT SPECIMEN TO PATHOLOGY Routine 02/26/2021 5:10 PM EDT SURGICAL PATHOLOGY REPORT Routine 02/26/2021 4:53 PM EDT Colonoscopy, Remv Lesmary kay, Snare ([id number]) 02/26/2021 4:28 PM EDT a repeat colonoscopy in two years from 02/22/19 COLONOSCOPY Routine 02/26/2021 4:21 PM EDT POCT GLUCOSE Routine 02/26/2021 3:42 PM EDT documented in this encounter Results * POCT Glucose (02/26/2021 5:51 PM EDT) Glucose, POC 160 65 - 199 mg/dL [facility] Comment: Supplemental ranges: <140 mg/dL before meals <180 mg/dL all other times of the day Blood specimen (specimen) 02/26/2021 5:51 PM EDT 02/26/2021 12:00 PM EDT L Karthik Barlow MD POINT OF CARE TEST O CEE Performing Organization Address [facility]/ZIP Co de Phone Number [facility] [place] [address] * Specimen to Pathology (02/26/2021 5:10 PM EDT) AP Specimen 02/26/2021 5:10 PM EDT 02/26/2021 5:10 PM EDT Narrative [facility] - 02/26/2021 5:10 PM EDT Specimen requisition ordered. ??Separate Pathology report to follow L Karthik Barlow MD PATHOLOGY/CYTOLOGY O CEE Performing Organization Address City/[facility]/ZIP Co de Phone Number [facility] [place] [address] * Specimen to Pathology (02/26/2021 5:10 PM EDT) AP Specimen 02/26/2021 5:10 PM EDT 02/26/2021 5:10 PM EDT Narrative [facility] - 02/26/2021 5:10 PM EDT Specimen requisition ordered. ??Separate Pathology report to follow L Karthik Barlow MD PATHOLOGY/CYTOLOGY O CEE Performing Organization Address City/[facility]/ZIP Co de Phone Number [facility] [place] [address] * Specimen to Pathology (02/26/2021 5:10 PM EDT) AP Specimen 02/26/2021 5:10 PM EDT 02/26/2021 5:10 PM EDT Narrative [facility] - 02/26/2021 5:10 PM EDT Specimen requisition ordered. ??Separate Pathology report to follow L Karthik Barlow MD PATHOLOGY/CYTOLOGY O CEE Performing Organization Address [facility] Co de Phone Number [facility] [place] [address] * Surgical Pathology Report (02/26/2021 4:53 PM EDT) Final Diagnosis [id number] ? Location: 4T; EA08; A The signing [...] MD Verified: ??03/04/2021 16:33 ??Pathologist Performed at: ??-[facility] [place] [place] Dept. of Pathology, [place], [place] SPECIMEN(S) SUBMITTED A - right colon [...] labeled C1. ??shb 03/04/2021 4:33 PM EDT [facility] GI Biopsy 02/26/2021 4:53 PM EDT 02/26/2021 4:53 PM EDT GI Biopsy 02/26/2021 4:53 PM EDT 02/26/2021 4:53 PM EDT GI Biopsy 02/26/2021 4:53 PM EDT 02/26/2021 4:53 PM EDT L Karthik Barlow MD PATHOLOGY/CYTOLOGY O RDERABLES [facility] [place] [address] * COLONOSCOPY (02/26/2021 4:21 PM EDT) COLONOSCOPY [facility] Endoscopy ___ Procedure Date: 02/26/2021 4:21 PM ? Patient Name: Brian Rodriguez ? Date of : 1950 ? Age: 70 ? Order #: [id number] ? Instrument Name: [id number] ? ___ Procedure: ? Colonoscopy Indications: ? [...] preparation was evaluated using ? the BBPS ([place] Bowel Preparation ? Scale) with scores of: [...] Glucose, POC 128 65 - 199 mg/dL [facility] Comment: Supplemental ranges: <140 mg/dL before meals <180 mg/dL all other times of the day Blood specimen (specimen) 02/26/2021 3:42 PM EDT 02/26/2021 12:00 PM EDT Dion Barlow MD POINT OF CARE TEST O RDERABLES Performing Organization Address City/[facility]/ZIP Co de Phone Number [facility] [place] [address] documented in this encounter Visit Diagnoses Not [...] RN) documented in this encounter Care Teams Key Account Executive Relationship Specialty Start Date End Date Josue Wilkinson MD PCP - General General Internal Medicine 02/14/2107/26 documented as of this encounter
--- OUTSIDE RECORDS SUMMARY | 2024-07-18 14:28 | XMS_ITS | Encounter Summary ---
Author Organization [facility] Address [facility] [place] [address] Care Team Providers Care Online Merchant Name Role Phone Unknown Primary Care Provider Unavailabl e Encounter Details Date Type Department Care Team (Latest Contact Info) Description 08/26/2021 9:30 AM EDT Office [place] [address] Dion Barlow MD [facility] [place] [address] Other ulcerative colitis with rectal bleeding; Left [...] manometry. - Obtain upper endoscopy report from [facility] in June 2021 - Avoid non-steroidal anti-inflammatory [...] Overview Note: ?? Colonoscopy 04/08/10 (Dr. Gomes [facility]) - inflammation only within the rectum and sigmoid; extent of the exam was to the hepatic flexure; biopsies proximal to the sigmoid nl ?? Repeat exam 11/27/11 ([facility] [...] dysphagia to solids. Had an EGD at [facility] in Jun and recalls was normal. No [...] manometry. - Obtain upper endoscopy report from [facility] in June 2021 - Avoid non-steroidal anti-inflammatory medications (NSAIDs) including but not limited to Advil, ibuprofen, Motrin, Aleve, Excedrin, naproxen, Mobic, indomethacin, and aspirin. Acetaminophen (Tylenol) is okay for aches and pains. - Follow-up in 6 months - will schedule colonoscopy at that time. I spent 30 min today reviewing the chart preparing for this visit, counseling the patient [id number] on the issues outlined above, and documenting an implementing the plan. Davina Barlow MD Inspector Tubesstudio artist Co-Director, [facility] Section of Gastroenterology [place] [address] documented in this encounter Plan of Treatment Upcoming Encounters Date Type Department Care Team (Late st Contact Info) Description 08/15/2024 9:00 AM EDT Office [place] [address] Dion Barlow MD [facility] [place] [address] 09/01/2024 9:40 AM EDT Office Visit Cardiology at [address] [place] [address] Franky Shaver MD [facility] [place] [address] 09/01/2024 11:20 AM EDT Office Visit Dermatology at [facility] [address] [place] [address] Gómez Mercer MD [facility] [place] [address] 09/21/2024 2:45 PM EDT Office Visit [facility] [place] [address] Trung Hoyos MD [facility] [place] [place] [address] documented as of this encounter Visit Diagnoses Diagnosis Other ulcerative colitis with rectal bleeding Left sided colitis without complications Left sided ulcerative (chronic) colitis documented in this encounter Care Teams Online Merchant Relationship Specialty Start Date End Date Unknown None PCP - General 08/23/21 02/16/22 documented as of this encounter
--- OUTSIDE RECORDS SUMMARY | 2024-07-18 14:28 | XMS_ITS | Encounter Summary ---
Author Organization [facility], Located [facility] [place] [address] Care Team Providers Care Beam Department Supervisor Name Role Phone DuongDeacon Priscilla LUCERO Primary Care Provider +1- [phone] Encounter Details Date Type Department Care Team (Late st Contact Info) Description 11/10/2022 Telephone [place] [address] Dianna Shen RN Social History [...] EDT Office [place] [address] Dion Barlow MD [facility] [place] [address] 09/01/2024 9:40 AM EDT Office Visit Cardiology at [address] [place] [phone] Franky Shaver MD [facility] [place] [address] 09/01/2024 11:20 AM EDT Office Visit Dermatology at [facility] [address] [place] [address] Gómez Mecrer MD [facility] [place] [address] 09/21/2024 2:45 PM EDT Office Visit [facility] [place] [address] Trung Hoyos MD [facility] [place] [address] documented as of this encounter Visit Diagnoses Not on filedocumented in this encounter Care Teams Beam Department Supervisor Relationship Specialty Start Date End Date Deacon Watters APRN [address] [place] [address] PCP - General Family Medicine 02/17/22 documented as of this encounter
--- OUTSIDE RECORDS SUMMARY | 2024-07-18 14:28 | XMS_ITS | Encounter Summary ---
Author Organization [facility]ly [facility] Address [facility] [place] [address] Care Team Providers Care Sample Distributor Name Role Phone Duong Deacon Wells APRN Primary Care Provider +1- [phone] Encounter Details Date Type Department Care Team [...] 9:00 AM EDT Office Visit [place] [address] Dion Barlow MD [facility] [place] [address] 09/01/2024 9:40 AM EDT Office Visit Cardiology at [address] [phone] Franky Shaver MD [facility] [place] [address] 09/01/2024 11:20 AM EDT Office Visit Dermatology at [facility] [address] [place] [address] Gómez Mercer MD [facility] DR EDDIE [place] [address] 09/21/2024 2:45 PM EDT Office Visit [facility] [place] [phone] Trung Hoyos MD [facility] [place] [address] documented as of this encounter Visit Diagnoses Not on filedocumented in this encounter Care Teams Sample Distributor Relationship Specialty Start Date End Date Deacon Watters, JAZMINE [address] [place] [address] PCP - General Family Medicine 02/17/22 documented as of this encounter
--- OUTSIDE RECORDS SUMMARY | 2024-07-18 14:28 | XMS_ITS | Encounter Summary ---
Author Organization Formerly [facility] Address [facility] [place] [address] Care Team Providers Care Stitch Marker Name Role Phone DuongVeliakip Wells APRN Primary Care Provider +1- [phone] Encounter Details Date Type Department Care Team (Late st Contact Info) Description 11/04/2022 Orders [place] [phone] Dianna Shen, RN Other ulcerative colitis with [...] EDT Office [place] [phone] Dion Barlow MD [facility] [place] [address] 09/01/2024 9:40 AM EDT Office Visit Cardiology at [address] [address] Franky Shaver MD [facility] [place] [address] 09/01/2024 11:20 AM EDT Office Visit Dermatology at [facility] [address] [place] [address] Gómez Mercer MD [facility] DR [place] [address] 09/21/2024 2:45 PM EDT Office Visit Pain and Spine Center at [facility] [place] [phone] Trung Hoyos MD [facility] [place] [address] documented as of this encounter Visit Diagnoses Diagnosis Other ulcerative colitis with rectal bleeding Left sided colitis without complications Left sided ulcerative (chronic) colitis Diarrhea, unspecified type documented in this encounter Care Teams Stitch Marker Relationship Specialty Start Date End Date Deacon Watters APRN [address] [place] [address] PCP - General Family Medicine 02/17/22 documented as of this encounter
--- OUTSIDE RECORDS SUMMARY | 2024-07-18 14:28 | XMS_ITS | Encounter Summary ---
Author Organization [facility] Address [facility] [place] [address] Care Team Providers Care Photographic Specialist Name Role Phone Josue Wilkinson MD Primary Care Provider [phone] Encounter Details Date Type Department Care Team (Late st Contact Info) Description 04/30/2021 Telephone [place] [phone] Marcelle Weinberg APRN [facility] [place] [address] Social History Tobacco Use Types Packs/Day Years [...] 9:00 AM EDT Office [place] [phone] Dion Barlow MD [facility] [place] [address] 09/01/2024 9:40 AM EDT Office Visit Cardiology at [address] [address] Franky Shaver MD [facility] [place] [address] 09/01/2024 11:20 AM EDT Office Visit Dermatology at [address] [address] óGmez Mercer MD [facility] DR EDDIE SANCHEZ-DERMATOLOGY [place], [place] [address] 09/21/2024 2:45 PM EDT Office Visit [facility] [place] [address] Trung Hoyos MD [facility] [place] [address] documented as of this encounter Results * Vitamin B12 (05/31/2021 1:49 PM EDT) Vitamin B12 389 232 - 1,245 pg/mL [facility] Blood 05/31/2021 1:49 PM EDT 05/31/2021 1:52 PM EDT Narrative Resulting Agency Comment Spec In Lab Marcelle Weinberg HEAD HOUSEKEEPER CHEMISTRY ORDERAB LES [facility] [place] [address] * Iron and TIBC (05/31/2021 1:49 PM EDT) Iron 86 45 - 160 mcg/dL [facility] TIBC 286 250 - 450 mcg/dL [facility] Iron Saturation 30 20 - 50 % [facility] Blood 05/31/2021 1:49 PM EDT 05/31/2021 1:52 PM EDT Narrative Resulting Agency Comment Spec In Lab Marcelle Dunnjeovannyjania HEAD HOUSEKEEPER CHEMISTRY ORDERAB LES [facility] [place] [address] * Ferritin (05/31/2021 1:49 PM EDT) Ferritin 94 30 - 400 ng/mL [facility] Comment: Pediatric reference ranges not verified at [facility], interpret with caution. Reference ranges for females greater than 50 years of age approach values for men, i.e., 30-400 ng/mL. Blood 05/31/2021 1:49 PM EDT 05/31/2021 1:52 PM EDT Narrative Resulting Agency Comment Spec In Lab Marcelle Dunnjeovannyv HEAD HOUSEKEEPER CHEMISTRY ORDERAB LES [facility] [place] [address] documented in this encounter Visit Diagnoses Diagnosis Left sided colitis without complications Left sided ulcerative (chronic) colitis documented in this encounter Care Teams Photographic Specialist Relationship Specialty Start Date End Date Josue Wilkinson MD PCP - General General Internal Medicine 02/14/2107/26 documented as of this encounter
--- OUTSIDE RECORDS SUMMARY | 2024-07-18 14:28 | XMS_ITS | Encounter Summary ---
Author Organization [facility] [place] [address] Care Team Providers Care Ethnology Teacher Name Role Phone Josue Wilkinson MD Primary Care Provider [phone] Reason for Visit * Reason Onset Date Comments Medication Refill 05/06/2021 Encounter Details Date Type Department Care Team (Late st Contact Info) Description 05/06/2021 Ref[place] [phone] Marcelle Weinberg, JAZMINE [facility] [place] [address] Social History Tobacco Use Types Packs/Day Years [...] 9:00 AM EDT Office [place] [phone] Dion Barlow MD [facility] [place] [address] 09/01/2024 9:40 AM EDT Office Visit Cardiology at [address] [place] [address] Franky Shaver MD [facility] [place] [address] 09/01/2024 11:20 AM EDT Office Visit Dermatology at [facility] [address] [place] [phone] Gómez Mercer MD [facility] [place] [address] 09/21/2024 2:45 PM EDT Office Visit [facility] [place] [address] Trung Hoyos MD [facility] [place] [address] documented as of this encounter Visit Diagnoses Not on filedocumented in this encounter Care Teams Ethnology Teacher Relationship Specialty Start Date End Date Josue Wilkinson MD PCP - General General Internal Medicine 02/14/21 9/3 documented as of this encounter
--- OUTSIDE RECORDS SUMMARY | 2024-07-18 14:28 | XMS_ITS | Encounter Summary ---
Author Organization [facility] [place] [address] Care Team Providers Care Defense Analyst Name Role Phone Deacon Watters APRN Primary Care Provider [phone]- [phone] Encounter Details Date Type Department Care Team (Late st Contact Info) Description 11/20/2022 Telephone [place] [phone] Jarret Roa RN Social History Tobacco Use [...] 9:00 AM EDT Office [place] [phone] Dion Barlow MD [facility] [place] [address] 09/01/2024 9:40 AM EDT Office Visit Cardiology at [address] [place] [address] Franky Shaver MD [facility] [place] [address] 09/01/2024 11:20 AM EDT Office Visit Dermatology at [facility] [address] [place] [address] Gómez Mercer MD [facility] [place] [address] 09/21/2024 2:45 PM EDT Office Visit [place] [address] Trung Hoyos MD [facility] [place] [address] documented as of this encounter Visit Diagnoses Not on filedocumented in this encounter Care Teams Defense Analyst Relationship Specialty Start Date End Date Deacon Watters APRN [address] [place] [address] [address] [place] [address] PCP - General Family Medicine 02/17/22 documented as of this encounter
--- OUTSIDE RECORDS SUMMARY | 2024-07-18 14:28 | XMS_ITS | Encounter Summary ---
Author Organization [facility] Address [facility] [place] [address] Care Team Providers Care Post Tronic Machine Operator Name Role Phone Deacon Watters APRN Primary Care Provider [phone]- [phone] Encounter Details Date Type Department Care Team (Late st Contact Info) Description 02/17/2022 9:30 AM EDT Office [place] [address] Marcelle Weinberg SENIOR INFORMATICA ETL DEVELOPER [facility] [place] [place] [address] Other ulcerative colitis with rectal bleeding Social [...] Overview Note: ? Colonoscopy 04/08/10 (Dr. Gomes [facility]) - inflammation only within the rectum and sigmoid; extent of the exam was to the hepatic flexure; biopsies proximal to the sigmoid nl ?? Repeat exam 11/27/11 ([facility] mildly active colitis in the sigmoid colon [...] Final Recent endoscopic procedures 06/28/21 EGD ( [facility]): Pre op Dx; Dysphagia Post op [...] Disease Center Section of Gastroenterology and Hepatology [address] [address] documented in this encounter Plan of Treatment Upcoming Encounters Date Type Department Care Team (Late st Contact Info) Description 08/15/2024 9:00 AM EDT Office [place] [address] Dion Barlow MD [facility] [place] [address] 09/01/2024 9:40 AM EDT Office Visit Cardiology at [address] [place] [address] Franky Shaver MD [facility] [place] [address] 09/01/2024 11:20 AM EDT Office Visit Dermatology at [facility] [address] [place] [address] Gómez Mercer MD [facility] DR EDDIE [place] [address] 09/21/2024 2:45 PM EDT Office Visit Pain and Spine Center at [facility] [place] [address] Trung Hoyos MD [facility] [place] [address] Scheduled Orders Name Type Priority Associated Diagnoses [...] AM EDT) Calprotectin, Stool 55 <=79 mcg/g [facility] Comment: Calprotectin Concentration ? Interpretation ? < 80 mcg/g ?Normal ? 80 ? 160 mcg/g ?Borderline ? >160 mcg/g ?Elevated Stool 02/19/2022 8:00 AM EDT 02/19/2022 11:25 AM EDT Narrative Resulting Agency Comment Spec In Lab Marcelle Conte Dragwill SENIOR INFORMATICA ETL DEVELOPER BODY FLUIDS AND S TOOLS ORDERABLES Performing Organization Address City/State/[facility] Co de Phone Number [facility] [place] [address] * (ABNORMAL) Differential, Automated (02/17/2022 10:40 AM EDT) Neutrophil % 65.7 % [facility] Neutrophil Absolute 4.53 1.70 - 6.10 x10(3)/mc L [facility] Lymph % 22.8 % [facility] Lymphocytes Abs 1.6 0.9 - 3.2 x10(3)/mc L [facility] Monocyte % 7.3 % [facility] Monocyte Abs 0.5 0.3 - 0.9 x10(3)/mc L [facility] Eos % 2.6 % [facility] Eosinophils Abs 0.2 0.0 - 0.4 x10(3)/mc L [facility] Basophil % 0.6 % [facility] Baso Absolute 0.0 0.0 - 0.1 x10(3)/mc L [facility] Immature Gran % 1.00 % [facility] Comment: Immature granulocytes(IG's)percentage and absolute count will include metamyelocytes, myelocytes, and promyelocytes. Blood smears from CBCs yielding IG's will be scanned manually for concordance. If this scan disagrees with the automated IG or if promyelocytes are noted, a manual differential will be performed. Immature Gran Absolute 0.07(H) 0.00 - 0.04 x10(3)/ L [facility] Blood 02/17/2022 10:4 0 AM EDT 02/17/2022 10:50 AM EDT Narrative Resulting Agency Comment Spec In Lab Marcelle Conte Dg Weinberg SENIOR INFORMATICA ETL DEVELOPER HEMATOLOGY ORDERA BLES [facility] [place] [address] * (ABNORMAL) Hemogram (02/17/2022 10:40 AM EDT) White Blood Cell 6.9 4.0 - 9.5 x10(3)/[facility] Red Blood Cell 3.58(L) 4.58 - 5.54 x10(6)/ L [facility] Hemoglobin 11.5(L) 13.7 - 16.5 g/dL [facility] Hematocrit 35.1(L) 40.5 - 48.5 % [facility] Mean Cell Volume 98.0(H) 82.9 - 93.1 fL [facility] Mean Cell Hemoglobin 32.1 27.5 - 32.1 pg [facility] Mean Cell Hemoglobin Concentration 32.8 32.0 - 35.7 g/dL [facility] Platelet 220 145 - 357 x10(3)/ L [facility] RDW Standard Deviation 44.3 36.0 - 45.0 [facility] RDW coefficient of variation 12.3 11.4 - 13.8 % [facility] Mean Platelet Volume 10.5 7.6 - 12.9 [facility] NRBC% auto 0.0 % [facility] NRBC Absolute 0.000 0.000 - 0.000 x10(3)/mc L [facility] Blood 02/17/2022 10:4 0 AM EDT 02/17/2022 10:50 AM EDT Narrative Resulting Agency Comment Spec In Lab Marcelle Weinberg SENIOR INFORMATICA ETL DEVELOPER HEMATOLOGY ORDERA BLES Performing Organization Address City/[facility]/ZIP Co de Phone Number [facility] [place] [address] * (ABNORMAL) CRP, acute inflammation (02/17/2022 10:40 AM EDT) C-Reactive Protein 5.0(H) <=4.9 mg/L [facility] Blood 02/17/2022 10:4 0 AM EDT 02/17/2022 10:50 AM EDT Narrative Resulting Agency Comment Spec In Lab Marcelle Dunnjeovannyjania SENIOR INFORMATICA ETL DEVELOPER CHEMISTRY ORDERAB LES Performing Organization Address [facility] Co de Phone Number [facility] [place] [address] * (ABNORMAL) Sedimentation rate (02/17/2022 10:40 AM EDT) [facility] Sedimentation Rate Automated 64(H) 3 - 46 mm/hr [facility] Comment: Effective November 02, 2019 new capillary photometric technology has resulted in a change in reference ranges. It is recommended that each ESR result be reviewed with its own age appropriate reference range. Blood 02/17/2022 10:4 0 AM EDT 02/17/2022 10:50 AM EDT Narrative Resulting Agency Comment Spec In Lab Marcelle Weinberg SENIOR INFORMATICA ETL DEVELOPER HEMATOLOGY ORDERA BLES Performing Organization Address [facility]/ZIP Co de Phone Number [facility] [place] [address] * Comprehensive metabolic panel (non-fasting) (02/17/2022 10:40 AM EDT) Glucose 94 65 - 199 mg/dL [facility] Comment:Diabetes: >=200 mg/d L plus symptoms Blood Urea Nitrogen 14 10 - 20 mg/dL [facility] Creatinine 1.06 0.80 - 1.50 mg/dL [facility] Sodium 144 135 - 145 mmol/L [facility] Potassium 3.9 3.5 - 5.0 mmol/L [facility] Comment: Please note: ??Patients with WBC >100,000 may have falsely elevated Potassium levels. ??For accurate Potassium quantification in these patients send serum separator tube (gold top) for subsequent determinations. ??Contact the Clinical Chemistry Laboratory if there are any questions. Chloride 107 98 - 107 mmol/L [facility] Carbon Dioxide 26 22 - 31 mmol/L [facility] Anion Gap 11 5 - 15 mmol/L [facility] Calcium 9.7 8.5 - 10.5 mg/dL [facility] Protein, Total 8.0 6.1 - 8.0 g/dL [facility] Albumin 4.3 3.2 - 5.2 g/dL [facility] Aspartate Aminotransferase 10 0 - 39 unit/L [facility] Alanine Aminotransferase 17 0 - 55 unit/L [facility] Alkaline Phosphatase 78 40 - 130 unit/L [facility] Bilirubin, Total 0.4 0.2 - 1.3 mg/dL [facility] Est Glomerular Filtration Rate 69 >=60 mL/min/1. 73 m?? [facility] [...] Agency Comment Spec In Lab Marcelle Weinberg SENIOR INFORMATICA ETL DEVELOPER CHEMISTRY ORDERAB LES Performing Organization Address City/State/[facility] Co de Phone Number [facility] [place] [address] documented in this encounter Visit Diagnoses Diagnosis Other ulcerative colitis with rectal bleeding documented in this encounter Care Teams Post Tronic Machine Operator Relationship Specialty Start Date End Date Deacon Watters APRN [address] [place] [address] PCP - General Family Medicine 02/17/22 documented as of this encounter
--- OUTSIDE RECORDS SUMMARY | 2024-07-18 14:28 | XMS_ITS | Encounter Summary ---
Author Organization [facility] Address [facility] [place] [address] Care Team Providers Care Review Appraiser Name Role Phone Deacon Watters APRN Primary Care Provider +1- [phone] Encounter Details Date Type Department Care Team (Late st Contact Info) Description 03/28/2022 3:15 PM EDT - 03/28/2022 4:00 PM EDT [place] [address] [facility] [address] COLONOSCOPY FLEXIBLE, WITH BX (WRVU 3.56) Social [...] occurs, please contact your Doctor. Please call [phone] before 8pm Mon-Fri with problems, questions or concerns. If you call after 8pm or on weekends, call the Hospital at [phone] and ask to speak to the Shipsmith contractor broomcorn threshing and the rooter operator will contact that person for you. When should you call for help? Call [phone] anytime you think you may need emergency [...] any problems. Where can you learn more? [facility] View your After Visit Summary and more online at [email or web address] If you would like to [...] cost to you. Content Version: 12.2 ?? 4327-4245 [employer]. Care instructions adapted under license by [facility]. If you have questions about a medical condition or this instruction, always ask your healthcare professional. [employer] disclaims any warranty or liability for your [...] 9:00 AM EDT Office [place] [phone] Dion Barlow MD [facility] [place] [address] 09/01/2024 9:40 AM EDT Office Visit Cardiology at [address] [phone] [facility] [place] [address] 09/01/2024 11:20 AM EDT Office Visit Dermatology at [address] [address] [facility] DR [place] [address] 09/21/2024 2:45 PM EDT Office Visit [facility] [place] [phone] Trung Hoyos MD [facility] [place] [address] documented as of this encounter Procedures Procedure Name Priority Date/Time Associated Diagnosis Comments SURGICAL PATHOLOGY REPORT Routine 03/28/2022 4:22 PM EDT SPECIMEN TO PATHOLOGY Routine 03/28/2022 4:22 PM EDT SPECIMEN TO PATHOLOGY Routine 03/28/2022 4:22 PM EDT SPECIMEN TO PATHOLOGY Routine 03/28/2022 4:22 PM EDT Colonoscopy, Biopsy ([id number]) 03/28/2022 3:30 PM EDT Other ulcerative colitis with rectal bleeding COLONOSCOPY Routine 03/28/2022 3:15 PM EDT documented in this encounter Results * Surgical Pathology Report (03/28/2022 4:22 PM EDT) Final Diagnosis [id number] ? Location: 4T; 12; A The signing [...] Christina Verified: ??04/03/2022 15:08 ??Pathologist Performed at: ??-[facility]. [facility] [place], [place], [place] SPECIMEN(S) SUBMITTED A - Sigmoid bx, [...] labeled C1. ??shb 04/03/2022 3:08 PM EDT [facility] GI Biopsy 03/28/2022 4:22 PM EDT 03/28/2022 4:22 PM EDT GI Biopsy 03/28/2022 4:22 PM EDT 03/28/2022 4:22 PM EDT GI Biopsy 03/28/2022 4:22 PM EDT 03/28/2022 4:22 PM EDT Mona Turner MD PATHOLOGY/CYTOLOGY O CEE [facility] [place] [address] * Specimen to Pathology (03/28/2022 4:22 PM EDT) AP Specimen 03/28/2022 4:22 PM EDT 03/28/2022 4:22 PM EDT Narrative [facility] - 03/28/2022 4:22 PM EDT Specimen requisition ordered. ??Separate Pathology report to follow Mona Turner MD PATHOLOGY/CYTOLOGY O CEE [facility] [place] [address] * Specimen to Pathology (03/28/2022 4:22 PM EDT) AP Specimen 03/28/2022 4:22 PM EDT 03/28/2022 4:22 PM EDT Narrative [facility] - 03/28/2022 4:22 PM EDT Specimen requisition ordered. ??Separate Pathology report to follow Mona Turner MD PATHOLOGY/CYTOLOGY O CEE Performing Organization Address [facility] [place] [address] * Specimen to Pathology (03/28/2022 4:22 PM EDT) AP Specimen 03/28/2022 4:22 PM EDT 03/28/2022 4:22 PM EDT Narrative [facility] - 03/28/2022 4:22 PM EDT Specimen requisition ordered. ??Separate Pathology report to follow Mona Turner MD PATHOLOGY/CYTOLOGY O CEE Performing Organization Address [facility] [place] [address] * COLONOSCOPY (03/28/2022 3:15 PM EDT) COLONOSCOPY [facility] Endoscopy Procedure Date: 03/28/2022 3:15 PM ? Patient Name: Brian Rodriguez ? N: [id number] ? Date of : 1950 ? Age: 71 ? Order #: [id number] ? Instrument Name: [id number] ? Procedure: ? Colonoscopy Indications: ? Follow-up of ulcerative colitis Providers: ? Mona Turner MD, April Augustine ? Cristela, RONY, Shay Maynard MD: ?LAnalia Barlow MD, Deacon Dior ? [place] Medicines: ? Midazolam 4 mg IV, Fentanyl [...] ? was evaluated using the BBPS ? ([place] Bowel Preparation Scale) ? with scores of: [...] Procedure Code(s): ? --- Professional --- ? 79537, Colonoscopy, flexible; with ? removal of tumor(s), polyp(s), or ? other lesion(s) by snare technique ? 00351, 59, Colonoscopy, flexible; ? with biopsy, single or multiple CPT copyright 2020 [employer]. All rights reserved. The codes documented in this report are preliminary and upon weigher production review may be revised to meet current [...] RN) documented in this encounter Care Teams Review Appraiser Relationship Specialty Start Date End Date Deacon Watters, JAZMINE [address] [place] [place] [address] [address] [place] [address] PCP - General Family Medicine 02/17/22 documented as of this encounter
--- OUTSIDE RECORDS SUMMARY | 2024-07-18 14:28 | XMS_ITS | Encounter Summary ---
[place] [address] Care Team Providers Care Wet Process Head Miller Name Role Phone Duong Deacon Wells APRN Primary Care Provider +1- [phone] Encounter Details Date Type Department Care Team (Late st Contact Info) Description 10/15/2022 Telephone [place] [phone] Roselia Coronado Social History Tobacco Use Types [...] EDT Office [place] [address] Dion Barlow MD [facility] [place] [address] 09/01/2024 9:40 AM EDT Office Visit Cardiology at [address] [place] [address] Franky Shaver MD [facility] [place] [address] 09/01/2024 11:20 AM EDT Office Visit Dermatology at [facility] [address] [place] [address] Gómez Mercer MD [facility] [place] [address] 09/21/2024 2:45 PM EDT Office Visit [place] [phone] Trung Hoyos MD [facility] [place] [address] documented as of this encounter Visit Diagnoses Not on filedocumented in this encounter Care Teams Wet Process Head Miller Relationship Specialty Start Date End Date Deacon Watters, CENTRIFUGAL MACHINE TENDER [address] [facility] 1 [place] [address] PCP - General Family Medicine 02/17/22 documented as of this encounter
--- OUTSIDE RECORDS SUMMARY | 2024-07-18 14:28 | XMS_ITS | Encounter Summary ---
Author Organization [facility] [place] [address] Care Team Providers Care Floor Steward/Stewardess Name Role Phone Deacon Watters Priscilla LUCERO Primary Care Provider +1- [phone] Reason for Visit * Reason Onset Date Comments Medication Refill 08/22/2022 Encounter Details Date Type Department Care Team (Late st Contact Info) Description 08/22/2022 Refill G[place] [phone] Dion Barlow MD [facility] [place] [place] [address] Social History Tobacco Use Types Packs/Day Years [...] 9:00 AM EDT Office Visit G[place] [address] Dion Barlow MD [facility] [place] [address] 09/01/2024 9:40 AM EDT Office Visit Cardiology at [address] [place] [address] Franky Shaver MD [facility] [place] [address] 09/01/2024 11:20 AM EDT Office Visit Dermatology at [facility] [address] [place] [address] Gómez Mercer MD [facility] [place] [address] 09/21/2024 2:45 PM EDT Office Visit [facility] [place] [address] Trung Hoyos MD [facility] [place] [place] [address] documented as of this encounter Visit Diagnoses Not on filedocumented in this encounter Care Teams Floor Steward/Stewardess Relationship Specialty Start Date End Date Deacon Watters, SOLDERER [address] [place] [address] PCP - General Family Medicine 02/17/22 documented as of this encounter
--- OUTSIDE RECORDS SUMMARY | 2024-07-18 14:28 | XMS_ITS | Encounter Summary ---
Author Organization [facility] [place] [address] Care Team Providers Care Truck Shop Supervisor Name Role Phone Deacon Watters APRN Primary Care Provider +1- [phone] Encounter Details Date Type Department Care Team (Late st Contact Info) Description 10/27/2023 Ancillary Procedure [place] [phone] Deacon Watters APRN [address] [place], [place] [address] Social History Tobacco Use Types Packs/Day Years [...] 9:00 AM EDT Office Visit [place] [address] Dion Barlow MD [facility] [place] [address] 09/01/2024 9:40 AM EDT Office Visit Cardiology at [address] [place] [address] Franky Shaver MD [facility] [place] [address] 09/01/2024 11:20 AM EDT Office Visit Dermatology at [facility] [address] [place] [address] Gómez Mercer MD [facility] DR EDDIE [place] [address] 09/21/2024 2:45 PM EDT Office Visit [facility] [place] [address] Trung Hoyos MD [facility] [place] [address] documented as of this encounter Procedures Procedure Name Priority Date/Time Associated Diagnosis Comments FILM LIBRARY STORAGE ONLY MR SPINE Routine 10/27/2023 12:00 AM EST documented in this encounter Results * Film Library- Storage Only MR Spine (10/27/2023 12:00 AM EST) Narrative [facility] - 11/11/2023 10:39 AM EST This exam is auto-finalizing. It's purpose is for storage only. Deacon Watters APRN IMG FILM LIBRARY O RDERABLES [place], [place] documented in this encounter Visit Diagnoses Not on filedocumented in this encounter Care Teams Truck Shop Supervisor Relationship Specialty Start Date End Date Deacon Watters APRN [address] [place] [address] PCP - General Family Medicine 02/17/22 documented as of this encounter
--- OUTSIDE RECORDS SUMMARY | 2024-07-18 14:28 | XMS_ITS | Encounter Summary ---
Author Organization [facility] [place] [address] Care Team Providers Care E Business Specialist Name Role Phone Daecon Watters APRN Primary Care Provider +1- [phone] Encounter Details Date Type Department Care Team (Late st Contact Info) Description 11/03/2022 Telephone [place] [address] Jarret Roa RN Social History Tobacco Use [...] weeks. Labs and stool studies sent to [facility]- He will call when he [...] 11/03/2022 2:40 PM EST Per Farideh Weinberg, KINDERGARTEN TUTOR: Could you please check on him in [...] 9:00 AM EDT Office [place] [address] Dion Barlow MD [facility] [place] [address] 09/01/2024 9:40 AM EDT Office Visit Cardiology at [address] [address] Franky Shaver MD [facility] [place] [address] 09/01/2024 11:20 AM EDT Office Visit Dermatology at [facility] [address] [place] [address] Gómez Mercer MD [facility] DR EDDIE [place] [address] 09/21/2024 2:45 PM EDT Office Visit Pain and Spine Center at [facility] [place] [address] [address] Trung Hoyos MD [facility] [place] [address] documented as of this encounter Visit Diagnoses Not on filedocumented in this encounter Care Teams E Business Specialist Relationship Specialty Start Date End Date Deacon Watters APRN [address] [place] [address] [address] [place] [address] PCP - General Family Medicine 02/17/22 documented as of this encounter
--- OUTSIDE RECORDS SUMMARY | 2024-07-18 14:28 | XMS_ITS | Encounter Summary ---
Author Organization [facility] [place] [address] Care Team Providers Care Director Of Social Services Name Role Phone Deacon Watters APRN Primary Care Provider +1- [phone] Reason for Referral * Diagnostic Test (Routine) - Closed Specialty Diagnoses / Procedures Referred By Contac t Referred To Contact Radiology Diagnoses Left sided colitis without complications Procedures CT Abdomen & Pelvis w Contrast Dion Barlow MD [facility] [place] [address] Referral ID Status Reason Start Date Expiration Date V isits Requested Visits Authorized [id number] Closed Specialty Service Requested 04/22/2022 10/22/2023 1 1 Reason for Visit * Diagnostic Test (Routine) - Closed Specialty Diagnoses / Procedures Referred By Contac t Referred To Contact Radiology Diagnoses Left sided colitis without complications Procedures CT Abdomen & Pelvis w Contrast Dion Barlow MD [facility] [place] [address] Referral ID Status Reason Start Date Expiration Date V isits Requested Visits Authorized [id number] Closed Specialty Service Requested 04/22/2022 10/22/2023 1 1 Encounter Details Date Type Department Care Team (Latest Contact Info) Description 09/29/2022 1:05 PM EST - 09/29/2022 11:59 PM EST Hospital [place] [address] Dion Barlow MD [facility] [place] [address] Left sided colitis without complications Discharge Disposition: [...] 9:00 AM EDT Office Visit [place] [address] Dion Barlow MD [facility] [place] [address] 09/01/2024 9:40 AM EDT Office Visit Cardiology at [address] [phone] Franky Shaver MD [facility] [place] [address] 09/01/2024 11:20 AM EDT Office Visit Dermatology at [facility] [address] [place] [address] Gómez Mercer MD [facility] DR [place] [address] 09/21/2024 2:45 PM EDT Office Visit Pain and Spine Center at [facility] [place] [address] Trung Hoyos MD [facility] [place] [address] documented as of this encounter Procedures Procedure [...] who have questions please contact the health personal care aid that requested your imaging first. ? Narrative [...] mLs documented in this encounter Care Teams Director Of Social Services Relationship Specialty Start Date End Date Deacon Watters, JAZMINE [address] [place] [address] PCP - General Family Medicine 02/17/22 documented as of this encounter
--- OUTSIDE RECORDS SUMMARY | 2024-07-18 14:28 | XMS_ITS | Encounter Summary ---
Author Organization [facility] [place] [address] Care Team Providers Care Canadian Bacon Tier Name Role Phone Deacon Watters JAZMINE Primary Care Provider +1- [phone] Reason for Visit * Reason Onset Date Comments Medication Refill 08/22/2022 Encounter Details Date Type Department Care Team (Late st Contact Info) Description 08/22/2022 Refill [place] [address] Dion Barlow MD [facility] [place] [address] Social History Tobacco Use Types Packs/Day Years [...] AM EDT Office Visit [place] [address] Dion Barlow MD [facility] [place] [address] 09/01/2024 9:40 AM EDT Office Visit Cardiology at [address] [place] [address] Franky Shaver MD [facility] [place] [address] 09/01/2024 11:20 AM EDT Office Visit Dermatology at [facility] [address] [place] [address] Gómez Mercer MD [facility] [place] [address] 09/21/2024 2:45 PM EDT Office Visit [facility] [place] [address] Trung Hoyos MD [facility] [place] [address] documented as of this encounter Visit Diagnoses Not on filedocumented in this encounter Care Teams Canadian Bacon Tier Relationship Specialty Start Date End Date Deacon Watters, LICENSED OPTICAL DISPENSER [address] [place] [address] PCP - General Family Medicine 02/17/22 documented as of this encounter
--- OUTSIDE RECORDS SUMMARY | 2024-07-18 14:28 | XMS_ITS | Encounter Summary ---
[place] [address] Care Team Providers Care Production Repairer Name Role Phone Deacon Watters APRN Primary Care Provider +1- [phone] Encounter Details Date Type Department Care Team (Latest Contact Info) Description 02/19/2022 10:52 AM EDT - 02/19/2022 11:59 PM EDT [place] [address] Other ulcerative colitis with rectal bleeding Discharge [...] 9:00 AM EDT Office Visit [place] [address] Dion Barlow MD [facility] [place] [address] 09/01/2024 9:40 AM EDT Office Visit Cardiology at [address] [place] [address] Franky Shaver MD [facility] [place] [address] 09/01/2024 11:20 AM EDT Office Visit Dermatology at [facility] [address] [place] [address] Gómez Mercer MD [facility] DR EDDIE [place] [address] 09/21/2024 2:45 PM EDT Office Visit [place] [address] Trung Hoyos MD [facility] [place] [address] documented as of this encounter Procedures Procedure [...] Comment Spec In Lab Monalisa C Dragnev CUSTOM GARMENT DESIGNER BODY FLUIDS AND S TOOLS ORDERABLES Performing Organization Address [facility] Co de Phone Number [facility] [place] [address] documented in this encounter Visit Diagnoses Diagnosis Other ulcerative colitis with rectal bleeding documented in this encounter Additional Health Concerns Infection Onset Date Last Indicated Resolved Time Rule Out C. difficile 02/19/2022 02/19/20222021 11:33 AM EDT documented as of this encounter Care Teams Production Repairer Relationship Specialty Start Date End Date Deacon Watters APRN [address] [place] [address] PCP - General Family Medicine 02/17/22 documented as of this encounter
--- OUTSIDE RECORDS SUMMARY | 2024-07-18 14:28 | XMS_ITS | Encounter Summary ---
Author Organization [facility] Address [facility] [place] [address] Care Team Providers Care Nursing Informatics Analyst Name Role Phone Josue Wilkinson MD Primary Care Provider [phone] Encounter Details Date Type Department Care Team (Late st Contact Info) Description 04/16/2021 Telephone [place] [address] Mona Cherry Social History Tobacco Use Types [...] 9:00 AM EDT Office [place] [address] Dion Barlow MD [facility] [place] [address] 09/01/2024 9:40 AM EDT Office Visit Cardiology at [address] [phone] Franky Shaver MD [facility] [place] [address] 09/01/2024 11:20 AM EDT Office Visit Dermatology at [facility] [address] [place] [address] Gómez Mercer MD [facility] [place] [address] 09/21/2024 2:45 PM EDT Office Visit Pain and Spine Center at [facility] [place] [address] Trung Hoyos MD [facility] [place] [address] documented as of this encounter Visit Diagnoses Not on filedocumented in this encounter Care Teams Nursing Informatics Analyst Relationship Specialty Start Date End Date Jouse Wilkinson MD PCP - General General Internal Medicine 02/14/21 9/3 documented as of this encounter
--- OUTSIDE RECORDS SUMMARY | 2024-07-18 14:28 | XMS_ITS | Encounter Summary ---
Author Organization [facility] Address [facility] [place] [address] Care Team Providers Care Battery Container Tester Aluminum Name Role Phone Deacon Watters APRN Primary Care Provider [phone]- [phone] Encounter Details Date Type Department Care Team (Late st Contact Info) Description 09/29/2022 11:00 AM EST Office Visit [place] [address] Marcelle Weinberg NUB CARD TENDER [facility] [place] [address] Left sided colitis without complications; Other ulcerative [...] Overview Note: ? Colonoscopy 04/08/10 (Dr. Gomes [facility]) - inflammation only within the rectum and sigmoid; extent of the exam was to the hepatic flexure; biopsies proximal to the sigmoid nl ?? Repeat exam 11/27/11 ([facility] mildly active colitis in the sigmoid colon [...] was cancer, followed by Dr. Carrillo, at [facility]. IBD Questionnaire No questionnaires on file. IBD [...] Vitals: 09/29/22 1108 BP: 153/72 BP Location ([facility]): Left arm Patient Position: Sitting [...] Disease Center Section of Gastroenterology [place] [address] documented in this encounter Miscellaneous Notes * Addendum Note - Andres De Dios - 09/29/2022 11:00 AM ESTAddended by: ANDRES DE DIOS on: 09/29/2022 12:05 PM Modules accepted: Orders documented in this encounter Plan of Treatment Upcoming Encounters Date Type Department Care Team (Late st Contact Info) Description 08/15/2024 9:00 AM EDT Office Visit [place] [address] [facility] [address] 09/01/2024 9:40 AM EDT Office Visit Cardiology at [address] [place] [phone] [facility] [place] [address] 09/01/2024 11:20 AM EDT Office Visit Dermatology at [facility] [address] [place] [phone]z [address] [facility] [place] [address] 09/21/2024 2:45 PM EDT Office Visit Pain [place] [phone] Trung Hoyos MD [facility] [place] [address] documented as of this encounter Procedures Procedure [...] Agency Comment Spec In Lab Marcelle Weinberg NUB CARD TENDER HEMATOLOGY ORDERA BLES Performing Organization Address [facility] [place]/ZIP Co de Phone Number [facility] [place] [address] * CRP, acute inflammation (09/29/2022 12:09 PM EST) C-Reactive Protein <3.0 <=4.9 mg/L [facility] Blood 09/29/2022 12:0 9 PM EST 09/29/2022 12:15 PM EST Narrative Resulting Agency Comment Spec In Lab Marcelle Weinberg NUB CARD TENDER CHEMISTRY ORDERAB LES Performing Organization Address [facility] [place]/[facility] Co de Phone Number [facility] [place] [address] * Creatinine (09/29/2022 12:09 PM EST) Creatinine [...] Agency Comment Spec In Lab Marcelle Dunnjeovannyjania NUB CARD TENDER CHEMISTRY ORDERAB LES [facility] [place] [address] documented in this encounter Visit Diagnoses Diagnosis Left sided colitis without complications Left sided ulcerative (chronic) colitis Other ulcerative colitis with rectal bleeding documented in this encounter Care Teams Battery Container Tester Aluminum Relationship Specialty Start Date End Date Deacon Watters APRN [address] [place] [address] PCP - General Family Medicine 02/17/22 documented as of this encounter
--- OUTSIDE RECORDS SUMMARY | 2024-07-18 14:28 | XMS_ITS | Encounter Summary ---
Author Organization [facility] Address [facility] [place] [address] Care Team Providers Care Base Filler Name Role Phone Deacon Watters APRN Primary Care Provider [phone]- [phone] Reason for Referral * Diagnostic Test (Routine) - Closed Specialty Diagnoses / Procedures Referred By Contac t Referred To Contact Radiology Diagnoses Left sided colitis without complications Procedures CT Abdomen & Pelvis w Contrast Dion Barlow MD [facility] [place] [address] Referral ID Status Reason Start Date Expiration Date V isits Requested Visits Authorized [id number] Closed Specialty Service Requested 04/22/2022 10/22/2023 1 1 Encounter Details Date Type Department Care Team (Late st Contact Info) Description 04/22/2022 8:00 AM EDT Office [place] [address] Dion Barlow MD [facility] [place] [address] Left sided colitis without complications; Tick bite [...] - CT scan to be arranged at [facility] in [facility] for left lower quadrant abd pain. [...] Overview Note: ? Colonoscopy 04/08/10 (Dr. Gomes [facility]) - inflammation only within the rectum [...] Interval History: Last visit with Farideh Mathur CREDIT ANALYSIS MANAGER 01/2022 Just had colo with Dr. Turner [...] adenopathy and no thyromegaly. 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 [...] Range Status ??? COLONOSCOPY 03/28/2022 Final Value:[facility] Endoscopy Procedure Date: 03/28/2022 3:15 PM Patient Name: Brian Rodriguez Date of : 1950 Age: 71 Order #: [id number] Instrument Name: [id number] Procedure: Colonoscopy Indications: Follow-up of ulcerative colitis [...] bowel preparation was evaluated using the BBPS ([place] Bowel Preparation Scale) with scores of: Right [...] referring physician. Procedure Code(s): --- Professional --- 31093, Colonoscopy, flexible; with removal of tumor(s), polyp(s), or other lesion(s) by snare technique 48493, 59, Colonoscopy, flexible; with biopsy, single or multiple CPT copyright 2020 [employer]. All rights reserved. The codes documented in this report are preliminary and upon marketing program manager review may be revised to meet current compliance requirements. Attending Participation: I personally performed the entire procedure. Mona Turner MD Mona Turner MD 03/28/2022 4:33:58 PM This report has been signed electronically. Number of Addenda: 0 Note Initiated On: 03/28/2022 3:15 PM ??? Surgical Pathology Report 03/28/2022 Final Value:[id number] Location: 4T; EA12; A The signing pathologist [...] Christina Verified: 04/03/2022 15:08 Pathologist Performed at: [place] [place], [place], [place] SPECIMEN(S) SUBMITTED A - Sigmoid bx, [...] en toto in 1 cassette labeled C1. [facility] Hospital Outpatient Visit on 02/19/2022 Component Date [...] Final Recent endoscopic procedures 06/28/21 EGD ( [facility]): Pre op Dx; Dysphagia Post op [...] - CT scan to be arranged at [facility] in [facility] for left lower quadrant abd pain. [...] spent 25 min today counseling the patient [id number] on the issues outlined above and 10 minutes reviewing the chart, preparing for this visit, documenting, and implementing the plan. Davina Barlow MD Health Care Administratorbleach chlorinator Co-Director, [facility] Section of Gastroenterology [place] [address] documented in this encounter Plan of Treatment Upcoming Encounters Date Type Department Care Team (Late st Contact Info) Description 08/15/2024 9:00 AM EDT Office Visit Gastroenterology at [place] [phone] Dion Barlow MD [facility] [place] [address] 09/01/2024 9:40 AM EDT Office Visit Cardiology at [address] [address] Franky Shaver MD [facility] [place] [address] 09/01/2024 11:20 AM EDT Office Visit Dermatology at [facility] [address] [place] [address] Gómez Mercer MD [facility] DR EDD[place] [address] 09/21/2024 2:45 PM EDT Office Visit [place] [phone] Trung Hoyos MD [facility] [place] [address] documented as of this encounter Procedures Procedure [...] have questions please contact the health rn progressive care unit that requested your imaging first. ? Electronically signed by: Papo Singer MD, [facility] ([phone]), at 09/29/2022 4:46 PM Narrative 09/29/2022 4:46 [...] 8:51 AM EDT) Neutrophil % 68.0 % [facility] Neutrophil Absolute 4.59 1.70 - 6.10 x10(3)/[facility] Lymph % 20.1 % [facility] Lymphocytes Abs 1.4 0.9 - 3.2 x10(3)/[facility] Monocyte % 7.1 % [facility] Monocyte Abs 0.5 0.3 - 0.9 x10(3)/[facility] Eos % 3.8 % [facility] Eosinophils Abs 0.3 0.0 - 0.4 x10(3)/[facility] Basophil % 0.7 % [facility] Baso Absolute 0.0 0.0 - 0.1 x10(3)/[facility] Immature Gran % 0.30 % [facility] Comment: Immature granulocytes(IG's)percentage and absolute count will include metamyelocytes, myelocytes, and promyelocytes. Blood smears from CBCs yielding IG's will be scanned manually for concordance. If this scan disagrees with the automated IG or if promyelocytes are noted, a manual differential will be performed. Immature Gran Absolute 0.02 0.00 - 0.04 x10(3)/[facility] Blood 04/22/2022 8:51 AM EDT 04/22/2022 8:57 AM EDT Narrative Resulting Agency Comment Spec In Lab L Karthik Barlow MD HEMATOLOGY ORDERABLE S [facility] [place] [address] * (ABNORMAL) Hemogram (04/22/2022 8:51 AM EDT) White Blood Cell 6.8 4.0 - 9.5 x10(3)/[facility] LABORATORY Red Blood Cell 3.70(L) 4.58 - 5.54 x10(6)/[facility]ORY Hemoglobin 12.4(L) 13.7 - 16.5 g/dL [facility] Hematocrit 37.5(L) 40.5 - 48.5 % [facility] Mean Cell Volume 101.4(H) 82.9 - 93.1 [facility]ATORY Mean Cell Hemoglobin 33.5(H) 27.5 - 32.1 pg [facility] Mean Cell Hemoglobin Concentration 33.1 32.0 - 35.7 g/dL [facility] Platelet 198 145 - 357 x10(3)/[facility] LABORATORY RDW Standard Deviation 45.2(H) 36.0 - 45.0 [facility] RDW coefficient of variation 12.2 11.4 - 13.8 % [facility] Mean Platelet Volume 11.0 7.6 - 12.9 [facility] LAB[facility]ATORY NRBC% auto 0.0 % [facility] NRBC Absolute 0.000 0.000 - 0.000 x10(3)/[facility]AT[facility] Blood 04/22/2022 8:51 AM EDT 04/22/2022 8:57 AM EDT Narrative Resulting Agency Comment Spec In Lab L Karthik Barlow MD HEMATOLOGY ORDERABLE S [facility] [place] [address] * (ABNORMAL) Basic Metabolic Panel (non-fasting) (04/22/2022 8:51 AM EDT) Glucose 206(H) 65 - 199 mg/dL [facility] Comment:Diabetes: >=200 mg/d L plus symptoms Blood Urea Nitrogen 21(H) 10 - 20 mg/dL [facility] Creatinine 1.17 0.80 - 1.50 mg/dL [facility] Sodium 141 135 - 145 mmol/L [facility] Potassium 4.6 3.5 - 5.0 mmol/L [facility] Comment: Please note: ??Patients with WBC >100,000 may have falsely elevated Potassium levels. ??For accurate Potassium quantification in these patients send serum separator tube (gold top) for subsequent determinations. ??Contact the Clinical Chemistry Laboratory if there are any questions. Chloride 104 98 - 107 mmol/L [facility] Carbon Dioxide 26 22 - 31 mmol/L [facility] Anion Gap 11 5 - 15 mmol/L [facility] Calcium 10.1 8.5 - 10.5 mg/dL [facility] Est Glomerular Filtration Rate 61 >=60 mL/min/1. 73 m?? [facility] [...] Barlow MD CHEMISTRY ORDERABLES Performing Organization Address [facility]/ZIP Co de Phone Number [facility] [place] [address] * CRP, acute inflammation (04/22/2022 8:51 AM EDT) C-Reactive Protein 3.3 <=4.9 mg/L [facility] Blood 04/22/2022 8:51 AM EDT 04/22/2022 8:57 AM EDT Narrative Resulting Agency Comment Spec In Lab L Karthik Barlow MD CHEMISTRY ORDERABLES Performing Organization Address [facility] Co de Phone Number [facility] [place] [address] * Sedimentation rate (04/22/2022 8:51 AM EDT) Sedimentation Rate Automated 36 3 - 46 mm/hr [facility] [...] MD HEMATOLOGY ORDERABLE S Performing Organization Address [facility] Co de Phone Number [facility] [place] [address] documented in this encounter Visit Diagnoses Diagnosis Left sided colitis without complications Left sided ulcerative (chronic) colitis Tick bite of abdominal wall, initial encounter Gastroesophageal reflux disease, unspecified whether esophagitis present Left sided colitis without complications Left sided ulcerative (chronic) colitis documented in this encounter Care Teams Base Filler Relationship Specialty Start Date End Date Deacon Watters APRN [address] [place] [address] PCP - General Family Medicine 02/17/22 documented as of this encounter
--- OUTSIDE RECORDS SUMMARY | 2024-07-18 14:28 | XMS_ITS | Encounter Summary ---
Author Organization [facility] [address] Care Team Providers Care Human Resources Vice President Name Role Phone Josue Wilkinson MD Primary Care Provider [phone] Encounter Details Date Type Department Care Team (Latest Contact Info) Description 05/31/2021 1:35 PM EDT Laboratory Appointment Lab [address] [place] [phone] Left sided colitis without complications Social History [...] 9:00 AM EDT Office [place] [phone] Dion Barlow MD [facility] [place] [address] 09/01/2024 9:40 AM EDT Office Visit Cardiology at [address] [phone] Franky Shaver MD [facility] [place] [address] 09/01/2024 11:20 AM EDT Office Visit Dermatology at [facility] [address] [place] [address] Gómez Mercer MD [facility] DR EDDIE [place] [address] 09/21/2024 2:45 PM EDT Office Visit Pain and Spine Center at [facility] [place] [phone] Trung Hoyos MD [facility] [place] [address] documented as of this encounter Procedures Procedure [...] 1:49 PM EDT) Neutrophil % 70.8 % [facility] Neutrophil Absolute 5.02 1.70 - 6.10 x10(3)/[facility] LABOR[facility] Lymph % 18.5 % [facility] Lymphocytes Abs 1.3 0.9 - 3.2 x10(3)/[facility] LAB[facility] Monocyte % 6.9 % [facility] Monocyte Abs 0.5 0.3 - 0.9 x10(3)/[facility] LABOR[facility] Eos % 2.8 % [facility] Eosinophils Abs 0.2 0.0 - 0.4 x10(3)/[facility]OR[facility] Basophil % 0.6 % [facility] Baso Absolute 0.0 0.0 - 0.1 x10(3)/[facility] LABOR[facility] Immature Gran % 0.40 % [facility] Comment: Immature granulocytes(IG's)percentage and absolute count will include metamyelocytes, myelocytes, and promyelocytes. Blood smears from CBCs yielding IG's will be scanned manually for concordance. If this scan disagrees with the automated IG or if promyelocytes are noted, a manual differential will be performed. Immature Gran Absolute 0.03 0.00 - 0.04 x10(3)/[facility] LAB[facility] Blood 05/31/2021 1:49 PM EDT 05/31/2021 1:52 PM EDT Narrative Resulting Agency Comment Spec In Lab Marcelle Weinberg ANIMAL HUSBANDRY PROFESSOR HEMATOLOGY ORDERA BLES [facility] [place] [address] * (ABNORMAL) Hemogram (05/31/2021 1:49 PM EDT) White Blood Cell 7.1 4.0 - 9.5 x10(3)/[facility] LABORATORY Red Blood Cell 3.85(L) 4.58 - 5.54 x10(6)/ L [facility] Hemoglobin 12.6(L) 13.7 - 16.5 gm/dL [facility] Hematocrit 38.4(L) 40.5 - 48.5 % [facility] Mean Cell Volume 99.7(H) 82.9 - 93.1 fL [facility] Mean Cell Hemoglobin 32.7(H) 27.5 - 32.1 pg [facility] Mean Cell Hemoglobin Concentration 32.8 32.0 - 35.7 gm/dL [facility] Platelet 215 145 - 357 x10(3)/mc L [facility] RDW Standard Deviation 45.1(H) 36.0 - 45.0 fL [facility] RDW coefficient of variation 12.3 11.4 - 13.8 % [facility] Mean Platelet Volume 11.2 7.6 - 12.9 fL [facility] NRBC% auto 0.0 % [facility] NRBC Absolute 0.000 0.000 - 0.000 x10(3)/mc L [facility] Blood 05/31/2021 1:49 PM EDT 05/31/2021 1:52 PM EDT Narrative Resulting Agency Comment Spec In Lab Marcelle Weinberg ANIMAL HUSBANDRY PROFESSOR HEMATOLOGY ORDERA BLES Performing Organization Address City/[facility]/ZIP Co de Phone Number [facility] [place] [address] * Ferritin (05/31/2021 1:49 PM EDT) [facility] Ferritin 94 30 - 400 ng/mL [facility] Comment: Pediatric reference ranges not verified at [facility], interpret with caution. Reference ranges for females greater than 50 years of age approach values for men, i.e., 30-400 ng/mL. Blood 05/31/2021 1:49 PM EDT 05/31/2021 1:52 PM EDT Narrative Resulting Agency Comment Spec In Lab Marcelle Weinberg ANIMAL HUSBANDRY PROFESSOR CHEMISTRY ORDERAB LES Performing Organization Address City/[facility]/ZIP Co de Phone Number [facility] [place] [address] * Iron and TIBC (05/31/2021 1:49 PM EDT) Iron 86 45 - 160 mcg/dL [facility] TIBC 286 250 - 450 mcg/dL [facility] Iron Saturation 30 20 - 50 % [facility] Blood 05/31/2021 1:49 PM EDT 05/31/2021 1:52 PM EDT Narrative Resulting Agency Comment Spec In Lab Marcelle Weinberg ANIMAL HUSBANDRY PROFESSOR CHEMISTRY ORDERAB LES Performing Organization Address City/[facility]/ZIP Co de Phone Number [facility] [place] [address] * Vitamin B12 (05/31/2021 1:49 PM EDT) Vitamin B12 389 232 - 1,245 pg/mL [facility] Blood 05/31/2021 1:49 PM EDT 05/31/2021 1:52 PM EDT Narrative Resulting Agency Comment Spec In Lab Marcelle Dunnjeovannyjania ANIMAL HUSBANDRY PROFESSOR CHEMISTRY ORDERAB LES Performing Organization Address City/[facility]/ZIP Co de Phone Number [facility] [place] [place] [address] documented in this encounter Visit Diagnoses Diagnosis Left sided colitis without complications Left sided ulcerative (chronic) colitis documented in this encounter Care Teams Human Resources Vice President Relationship Specialty Start Date End Date Josue Wilkinson MD PCP - General General Internal Medicine 02/14/21 9/3 documented as of this encounter
--- OUTSIDE RECORDS SUMMARY | 2024-07-18 14:28 | XMS_ITS | Encounter Summary ---
Author Organization [facility] Address [facility] [place] [address] Care Team Providers Care Flamer Sealer Name Role Phone Josue Wilkinson MD Primary Care Provider [phone] Encounter Details Date Type Department Care Team (Latest Contact Info) Description 04/29/2021 9:00 AM EDT Office Visit [place] [address] Marcelle Weinberg, JAZMINE [facility] [place] [address] Left sided colitis without complications Social History [...] encounter Progress Notes * Marcelle Weinberg C, SLITTING MACHINE OPERATOR HELPER - 04/29/2021 9:00 AM EDT Primary care [...] Overview Note: ? Colonoscopy 04/08/10 (Dr. Gomes [facility]) - inflammation only within the rectum and sigmoid; extent of the exam was to the hepatic flexure; biopsies proximal to the sigmoid nl ?? Repeat exam 11/27/11 ([facility] – [...] Ref Range Status ??? COLONOSCOPY 02/26/2021 Final Value:[facility] Endoscopy Procedure Date: 02/26/2021 4:21 PM Patient Name: Brian Rodriguez Date of : 1950 Age: 70 Order #: [id number] Instrument Name: [id number] Procedure: Colonoscopy Indications: High risk colon cancer [...] bowel preparation was evaluated using the BBPS ([place] Bowel Preparation Scale) with scores of: Right [...] Final ??? Surgical Pathology Report 02/26/2021 Final Value:[id number] Location: 4T; EA08; A The signing pathologist [...] MD Verified: 03/04/2021 16:33 Pathologist Performed at: [place], [place], [place] SPECIMEN(S) SUBMITTED A - right colon [...] Disease Center Section of Gastroenterology [place] [address] documented in this encounter Plan of Treatment Upcoming Encounters Date Type Department Care Team (Late st Contact Info) Description 08/15/2024 9:00 AM EDT Office Visit [place] [address] Dion Barlow MD [facility] [place] [address] 09/01/2024 9:40 AM EDT Office Visit Cardiology at [address] [place] [phone] Franky Shaver MD [facility] [place] [address] 09/01/2024 11:20 AM EDT Office Visit Dermatology at [facility] [address] [place] [address] Gómez Mercer MD [facility] DR EDDIE [place] [address] 09/21/2024 2:45 PM EDT Office Visit Pain and Spine Center at [facility] [place] [address] Trung Hoyos MD [facility] [place] [address] documented as of this encounter Procedures Procedure [...] 10:22 AM EDT) Neutrophil % 65.3 % [facility] Neutrophil Absolute 3.34 1.70 - 6.10 x10(3)/ L [facility] Lymph % 23.0 % [facility] Lymphocytes Abs 1.2 0.9 - 3.2 x10(3)/ L [facility] Monocyte % 6.6 % [facility] Monocyte Abs 0.3 0.3 - 0.9 x10(3)/mc L [facility] Eos % 2.9 % [facility] Eosinophils Abs 0.2 0.0 - 0.4 x10(3)/[facility] Basophil % 1.0 % [facility] Baso Absolute 0.0 0.0 - 0.1 x10(3)/[facility] Immature Gran % 1.20 % [facility] Comment: Immature granulocytes(IG's)percentage and absolute count will include metamyelocytes, myelocytes, and promyelocytes. Blood smears from CBCs yielding IG's will be scanned manually for concordance. If this scan disagrees with the automated IG or if promyelocytes are noted, a manual differential will be performed. Immature Gran Absolute 0.06(H) 0.00 - 0.04 x10(3)/ L [facility] Blood 04/29/2021 10:2 2 AM EDT 04/29/2021 10:29 AM EDT Narrative Resulting Agency Comment Spec In Lab Marcelle Weinberg SLITTING MACHINE OPERATOR HELPER HEMATOLOGY ORDERA BLES [facility] [place] [address] * (ABNORMAL) Hemogram (04/29/2021 10:22 AM EDT) White Blood Cell 5.1 4.0 - 9.5 x10(3)/ L [facility] Red Blood Cell 3.78(L) 4.58 - 5.54 x10(6)/mc L [facility] Hemoglobin 12.4(L) 13.7 - 16.5 gm/dL [facility] Hematocrit 37.8(L) 40.5 - 48.5 % [facility] Mean Cell Volume 100.0(H) 82.9 - 93.1 fL [facility] Mean Cell Hemoglobin 32.8(H) 27.5 - 32.1 pg [facility] Mean Cell Hemoglobin Concentration 32.8 32.0 - 35.7 gm/dL [facility] Platelet 196 145 - 357 x10(3)/mc L [facility] RDW Standard Deviation 45.1(H) 36.0 - 45.0 [facility] RDW coefficient of variation 12.2 11.4 - 13.8 % [facility] Mean Platelet Volume 11.5 7.6 - 12.9 [facility] NRBC% auto 0.0 % [facility] NRBC Absolute 0.000 0.000 - 0.000 x10(3)/mc L [facility] Blood 04/29/2021 10:2 2 AM EDT 04/29/2021 10:29 AM EDT Narrative Resulting Agency Comment Spec In Lab Marcelle Weinberg APRN HEMATOLOGY ORDERA BLES [facility] [place] [address] * CRP, acute inflammation (04/29/2021 10:22 AM EDT) C-Reactive Protein <3.0 <=4.9 mg/L [facility] Blood 04/29/2021 10:2 2 AM EDT 04/29/2021 10:29 AM EDT Narrative Resulting Agency Comment Spec In Lab Marcelle Weinberg SLITTING MACHINE OPERATOR HELPER CHEMISTRY ORDERAB LES Performing Organization Address [facility]/ZIP Co de Phone Number [facility] [place] [address] * Sedimentation rate (04/29/2021 10:22 AM EDT) Sedimentation Rate Automated 32 3 - 46 mm/hr [facility] [...] APRN HEMATOLOGY ORDERA BLES Performing Organization Address [facility] Co de Phone Number [facility] [place] [address] * (ABNORMAL) Comprehensive metabolic panel (non-fasting) (04/29/2021 10:22 AM EDT) Glucose 130 65 - 199 mg/dL [facility] Comment:Diabetes: >=200 mg/d L plus symptoms Blood Urea Nitrogen 21(H) 10 - 20 mg/dL [facility] Creatinine 1.14 0.80 - 1.50 mg/dL [facility] Sodium 142 135 - 145 mmol/L [facility] Potassium 4.4 3.5 - 5.0 mmol/L [facility] Comment: Please note: ??Patients with WBC >100,000 may have falsely elevated Potassium levels. ??For accurate Potassium quantification in these patients send serum separator tube (gold top) for subsequent determinations. ??Contact the Clinical Chemistry Laboratory if there are any questions. Chloride 107 98 - 107 mmol/L [facility] Carbon Dioxide 25 22 - 31 mmol/L [facility] Anion Gap 10 5 - 15 mmol/L [facility] Calcium 10.0 8.5 - 10.5 mg/dL [facility] Protein, Total 8.0 6.1 - 8.0 gm/dL [facility] Albumin 4.4 3.2 - 5.2 gm/dL [facility] Aspartate Aminotransferase 14 0 - 39 unit/L [facility] Alanine Aminotransferase 16 0 - 55 unit/L [facility] Alkaline Phosphatase 68 40 - 130 unit/L [facility] Bilirubin, Total 0.3 0.2 - 1.3 mg/dL [facility] Est Glomerular Filtration Rate 64 >=60 mL/min/1. 73 m?? [facility] Comment: This patient? s [...] Agency Comment Spec In Lab Marcelle Weinberg SLITTING MACHINE OPERATOR HELPER CHEMISTRY ORDERAB LES Performing Organization Address City/State/[facility] Co de Phone Number [facility] [place] [address] documented in this encounter Visit Diagnoses Diagnosis Left sided colitis without complications Left sided ulcerative (chronic) colitis documented in this encounter Care Teams Flamer Sealer Relationship Specialty Start Date End Date Josue Wilkinson MD PCP - General General Internal Medicine 02/14/21 9/ documented as of this encounter
--- OUTSIDE RECORDS SUMMARY | 2024-07-18 14:28 | XMS_ITS | Encounter Summary ---
Author Organization [facility] [place] [address] Care Team Providers Care Lace Cutter Name Role Phone Deacon Watters Priscilla LUCERO Primary Care Provider [phone] Reason for Visit * Reason Onset Date Comments Medication Refill 09/21/2023 Encounter Details Date Type Department Care Team (Late st Contact Info) Description 09/21/2023 Refill [place] [phone] Dion Barlow MD [facility] [place] [address] Social History Tobacco Use Types Packs/Day Years [...] 9:00 AM EDT Office Visit [place] [phone] Dion Barlow MD [facility] [place] [address] 09/01/2024 9:40 AM EDT Office Visit Cardiology at [address] [place] [address] Franky Shaver MD [facility] [place] [address] 09/01/2024 11:20 AM EDT Office Visit Dermatology at [facility] [address] [place] [address] Gómez Mercer MD [facility] [place] [address] 09/21/2024 2:45 PM EDT Office Visit Pain [place] [address] Trung Hoyos MD [facility] [place] [address] documented as of this encounter Visit Diagnoses Not on filedocumented in this encounter Care Teams Lace Cutter Relationship Specialty Start Date End Date Deacon Watters, MACHINE SET UP [address] [place] [address] PCP - General Family Medicine 02/17/22 documented as of this encounter
--- OUTSIDE RECORDS SUMMARY | 2024-07-18 14:28 | XMS_ITS | Encounter Summary ---
[place] [address] Care Team Providers Care Director Of The [employer] [facility] Name Role Phone Deacon Watters APRN Primary Care Provider [phone] Encounter Details Date Type Department Care Team (Late st Contact Info) Description 02/26/2022 Telephone [place] [phone] Dianna Shen RN Social History Tobacco Use [...] Brian reminding him to get labs. Called [facility] and they had not been done yet. * Telephone Encounter - Dianna Shen RN - 02/26/2022 4:06 PM EDT TC placed to follow up with Brian. Reports improvement in diarrhea. Says he has a scheduled colonoscopy 03/28. Discussed elevation in labs of CRP and ESR, as well as mild anemia per Farideh. Patient plans to have labs rechecked at [facility] on Thursday. documented in this encounter Plan of Treatment Upcoming Encounters Date Type Department Care Team (Late st Contact Info) Description 08/15/2024 9:00 AM EDT Office [place] [address] Dion Barlow MD [facility] [place] [address] 09/01/2024 9:40 AM EDT Office Visit Cardiology at [address] [address] Franky Shaver MD [facility] [place] [address] 09/01/2024 11:20 AM EDT Office Visit Dermatology at [address] [address] Gómez Mercer MD [facility] DR EDDIE SANCHEZ-DERMATOLOGY [place], [place] [address] 09/21/2024 2:45 PM EDT Office Visit [place] [address] Trung Hoyos MD [facility] [place] [address] documented as of this encounter Visit Diagnoses Not on filedocumented in this encounter Care Teams Director Of The [employer] [facility] Relationship Specialty Start Date End Date Deacon Watters APRN [address] [place] [address] [address] [facility] [address] [place] [address] PCP - General Family Medicine 02/17/22 documented as of this encounter
--- OUTSIDE RECORDS SUMMARY | 2024-07-18 14:29 | XMS_ITS | Encounter Summary ---
Author Organization [facility] Address [facility] [place] [address] Care Team Providers Care Printing Plate Maker Name Role Phone Maximilian Fall MD Primary Care Provider [phone] Encounter Details Date Type Department Care Team (Late st Contact Info) Description 04/28/2019 4:15 PM EDT - 04/28/2019 4:45 PM EDT Surgery [place] [address] Iza Coates MD [facility] [place] [address] EGD, UPPER GI ENDOSCOPY (WRVU 2.09) Social [...] Care Everywhere. * EGD (Upper Endoscopy): Post-op (Bulgarian) documented in this encounter Medications at Time [...] sedation) Iza Coates MD Gastroenterology attending Pager [phone] documented in this encounter Plan of Treatment Upcoming Encounters Date Type Department Care Team (Late st Contact Info) Description 08/15/2024 9:00 AM EDT Office [place] [address] Dion Barlow MD [facility] [place] [address] 09/01/2024 9:40 AM EDT Office Visit Cardiology at [address] [phone] Franky Shaver MD [facility] [place] [address] 09/01/2024 11:20 AM EDT Office Visit Dermatology at [facility] [address] [place] [address] Gómez Mercer MD [facility] DR EDDIE [place] [address] 09/21/2024 2:45 PM EDT Office Visit Pain and Spine Center at [facility] [place] [phone] Trung Hoyos MD [facility] [place] [address] documented as of this encounter Procedures Procedure [...] MD PATHOLOGY/CYTOLOG Y ORDERABLES Performing Organization Address [facility] Co de Phone Number [facility] [place] [address] * Specimen to Pathology (04/28/2019 5:03 PM EDT) AP Specimen 04/28/2019 5:03 PM EDT 04/28/2019 5:03 PM EDT Narrative [facility] - 04/28/2019 5:03 PM EDT Specimen requisition ordered. ??Separate Pathology report to follow Iza Coates MD PATHOLOGY/CYTOLOG Y ORDERABLES Performing Organization Address [facility] [place] [address] * Surgical Pathology Report (04/28/2019 4:50 PM EDT) Final Diagnosis [id number] ? Location: 4T; EA10; A The signing pathologist has (i) examined the relevant preparation(s) for the specimen(s) and (ii) rendered or confirmed the diagnosis(es). . ?Surgical Pathology DIAGNOSIS A - Random duodenum, biopsy: Duodenal mucosa within normal limits, including preserved villous architecture. B - Fundic gland, polypectomy: Gastric fundic gland polyp. Electronically signed by: ??Joana Soler MD Verified: ??05/02/2019 ?Pathologist Performed at: ??-[facility] [place], [place], [place] CLINICAL INFORMATION Specimen Submitted: A - [...] B1. ??ejr 05/02/2019 4:02 PM EDT [facility] GI Biopsy 04/28/2019 4:50 PM EDT 04/28/2019 4:50 PM EDT GI Biopsy 04/28/2019 4:50 PM EDT 04/28/2019 4:50 PM EDT Iza Coates MD PATHOLOGY/CYTOLOG Y ORDERABLES [facility] [place] [address] * UPPER GI ENDOSCOPY (04/28/2019 4:39 PM EDT) UPPER GI ENDOSCOPY [facility] Endoscopy Procedure Date: 04/28/2019 4:39 PM ? Patient Name: Brian Rodriguez ? Date of : 1950 ? Age: 68 ? Order #: [id number] ? Instrument Name: [id number] ? Procedure: ? Upper GI endoscopy Indications: ? Abnormal CT of the GI tract (duodenal ? thickening) Providers: ? Iza Coates MD, Nohemi Ball, ? RN, Jonathan Ko, Assistant Basketball Coach Referring MD: ?Maximilian Fall MD Requesting Provider: [...] POC 91 65 - 199 mg/dL [facility] Comment: Supplemental ranges: <140 mg/dL before meals <180 mg/dL all other times of the day Blood specimen (specimen) 04/28/2019 3:46 PM EDT 04/28/2019 3:46 PM EDT Iza Coates MD POINT OF CARE KISHOR T ORDERABLES Performing Organization Address [facility] Co de Phone Number [facility] [place] [address] documented in this encounter Visit Diagnoses Diagnosis [...] RN) documented in this encounter Care Teams Printing Plate Maker Relationship Specialty Start Date End Date Maximilian Fall MD [address] [place] [address] PCP - General 10/01/11 02/13/21 documented as of this encounter
--- OUTSIDE RECORDS SUMMARY | 2024-07-18 14:29 | XMS_ITS | Encounter Summary ---
Author Organization [facility] [place] [address] Care Team Providers Care Car Usher Name Role Phone Maximilian Fall MD Primary Care Provider [phone] Encounter Details Date Type Department Care Team (Late st Contact Info) Description 11/10/2018 Telephone [place] [address] Rachel Corral Social History Tobacco Use Types [...] 9:00 AM EDT Office [place] [address] Dion Barlow MD [facility] [place] [address] 09/01/2024 9:40 AM EDT Office Visit Cardiology at [address] [phone] Franky Shaver MD [facility] [place] [address] 09/01/2024 11:20 AM EDT Office Visit Dermatology at [address] [place] [phone] Gómez Mercer MD [facility] [place] [address] 09/21/2024 2:45 PM EDT Office Visit [place] [phone] Trung Hoyos MD [facility] [place] [address] documented as of this encounter Visit Diagnoses Not on filedocumented in this encounter Care Teams Car Usher Relationship Specialty Start Date End Date Maximilian Fall MD [address] [facility] [address] [place] [address] PCP - General 10/01/11 02/13/21 documented as of this encounter
--- OUTSIDE RECORDS SUMMARY | 2024-07-18 14:29 | XMS_ITS | Encounter Summary ---
Author Organization [facility] Address [facility] [place] [address] Care Team Providers Care Business Unit Leader Name Role Phone Maximilian Fall MD Primary Care Provider [phone] Encounter Details Date Type Department Care Team (Latest Contact Info) Description 02/22/2019 2:13 PM EDT - 02/22/2019 5:26 PM EDT Hospital En[place] [address] Dion Barlow MD [facility] [place] [address] Discharge Disposition: Home Social History Tobacco Use [...] - 02/22/2019 5:05 PM EDT Please call [phone] before 8pm Mon-Fri with problems, questions or concerns. If you call after 8pm or on weekends, call the Hospital at [phone] and ask to speak to the Label Drier irrigation equipment mechanic and the lumber piler operator will contact that person for you. * Attachments The following attachments cannot be sent through Care Everywhere. * Colonoscopy: Post-op (Cambodian) * Colon Polyps (Cambodian) documented in this encounter Medications at Time [...] 9:00 AM EDT Office [place] [address] Dion Barlow MD [facility] [place] [address] 09/01/2024 9:40 AM EDT Office Visit Cardiology at [address] [place] [address] Franky Shaver MD [facility] [place] [address] 09/01/2024 11:20 AM EDT Office Visit Dermatology at [facility] [address] [place] [address] Gómez Mercer MD [facility] DR EDDIE SANCHEZ[place] [address] 09/21/2024 2:45 PM EDT Office Visit [facility] [place] [address] Trung Hoyos MD [facility] PA[place] [address] documented as of this encounter Procedures Procedure [...] PM EDT 02/22/2019 4:56 PM EDT Narrative [facility] - 02/22/2019 4:56 PM EDT Specimen requisition ordered. ??Separate Pathology report to follow L Karthik Barlow MD PATHOLOGY/CYTOLOGY O RDMELISSA Performing Organization Address [facility]/[place] [address] * Specimen to Pathology (02/22/2019 4:56 PM EDT) AP Specimen 02/22/2019 4:56 PM EDT 02/22/2019 4:56 PM EDT Narrative [facility] - 02/22/2019 4:56 PM EDT Specimen requisition ordered. ??Separate Pathology report to follow L Karthik Barlow MD PATHOLOGY/CYTOLOGY O RDERABLES Performing Organization Address City/[facility]/[place] [address] * Specimen to Pathology (02/22/2019 4:56 PM EDT) AP Specimen 02/22/2019 4:56 PM EDT 02/22/2019 4:56 PM EDT Narrative [facility] - 02/22/2019 4:56 PM EDT Specimen requisition ordered. ??Separate Pathology report to follow L Karthik Barlow MD PATHOLOGY/CYTOLOGY O RDERAOMAR [facility] [place] [address] * Specimen to Pathology (02/22/2019 4:56 PM EDT) AP Specimen 02/22/2019 4:56 PM EDT 02/22/2019 4:56 PM EDT Narrative [facility] - 02/22/2019 4:56 PM EDT Specimen requisition ordered. ??Separate Pathology report to follow L Karthik Barlow MD PATHOLOGY/CYTOLOGY O CEE Performing Organization Address [facility]/[place] [address] * Specimen to Pathology (02/22/2019 4:56 PM EDT) AP Specimen 02/22/2019 4:56 PM EDT 02/22/2019 4:56 PM EDT Narrative [facility] - 02/22/2019 4:56 PM EDT Specimen requisition ordered. ??Separate Pathology report to follow L Karthik Barlow MD PATHOLOGY/CYTOLOGY O CEE Performing Organization Address [facility]/[place] [address] * Specimen to Pathology (02/22/2019 4:56 PM EDT) AP Specimen 02/22/2019 4:56 PM EDT 02/22/2019 4:56 PM EDT Narrative [facility] - 02/22/2019 4:56 PM EDT Specimen requisition ordered. ??Separate Pathology report to follow L Karthik Barlow MD PATHOLOGY/CYTOLOGY O CEE Performing Organization Address [facility] [place] [place] [address] * Specimen to Pathology (02/22/2019 4:56 PM EDT) AP Specimen 02/22/2019 4:56 PM EDT 02/22/2019 4:56 PM EDT Narrative [facility] - 02/22/2019 4:56 PM EDT Specimen requisition ordered. ??Separate Pathology report to follow L Karthik Barlow MD PATHOLOGY/CYTOLOGY O CEE Performing Organization Address [facility] [place] [address] * Specimen to Pathology (02/22/2019 4:56 PM EDT) AP Specimen 02/22/2019 4:56 PM EDT 02/22/2019 4:56 PM EDT Narrative [facility] - 02/22/2019 4:56 PM EDT Specimen requisition ordered. ??Separate Pathology report to follow L Karthik Barlow MD PATHOLOGY/CYTOLOGY O CEE Performing Organization Address [facility] [place] [address] * Surgical Pathology Report (02/22/2019 4:23 PM EDT) Final Diagnosis [id number] ? Location: 4T; EA06; A The signing [...] Tucker MD Verified: ??02/26/2019 ?Pathologist Performed at: ??-[facility] [place], [place], [place] CLINICAL INFORMATION Specimen Submitted: A - [...] labeled H1-H2. ??apb 02/26/2019 4:24 PM EDT [facility] GI Biopsy 02/22/2019 4:23 PM [...] O RDERABLES [facility] [place] [place] [address] * COLONOSCOPY (02/22/2019 3:57 PM EDT) COLONOSCOPY [facility] Endoscopy ___ Procedure Date: 02/22/2019 3:57 PM ? Patient Name: Brian Rodriguez ? Date of : 1950 ? Age: 68 ? Order #: [id number] ? Instrument Name: [id number] ? ___ Procedure: ? Colonoscopy Indications: ? [...] preparation was evaluated using ? the BBPS ([place] Bowel Preparation ? Scale) with scores of: [...] GENERAL SURGICAL ORD ERABLES Performing Organization Address City/State/[facility] Co de Phone Number PROVATION [...] RN) documented in this encounter Care Teams Business Unit Leader Relationship Specialty Start Date End Date Maximilian Fall MD [address] [place] [address] PCP - General 10/01/11 02/13/21 documented as of this encounter
--- OUTSIDE RECORDS SUMMARY | 2024-07-18 14:29 | XMS_ITS | Encounter Summary ---
Author Organization [facility] Address [facility] [place] [address] Care Team Providers Care Transportation Director Name Role Phone Josue Wilkinson MD Primary Care Provider [phone] Encounter Details Date Type Department Care Team (Latest Contact Info) Description 02/26/2021 2:52 PM EDT - 02/26/2021 6:22 PM EDT Hospital En[place] [address] Dion Barlow MD [facility] [place] [address] Discharge Disposition: Home Social History Tobacco Use [...] to be checked. Thursday-Thursday Same Day Endo [phone] 7a-8p Otherwise contact [phone] and ask to speak to the cut filer electronic bench technician Follow up care is a le [...] 9:00 AM EDT Office [place] [address] Dion Barlow MD [facility] [place] [address] 09/01/2024 9:40 AM EDT Office Visit Cardiology at [address] [place] [address] Franky Shaver MD [facility] [place] [address] 09/01/2024 11:20 AM EDT Office Visit Dermatology at [facility] [address] [place] [address] Gómez Mercer MD [facility] [place] [address] 09/21/2024 2:45 PM EDT Office Visit [place] [address] Trung Hoyos MD [facility] [place] [address] documented as of this encounter Procedures Procedure Name Priority Date/Time Associated Diagnosis Comments POCT GLUCOSE Routine 02/26/2021 5:51 PM EDT SPECIMEN TO PATHOLOGY Routine 02/26/2021 5:10 PM EDT SPECIMEN TO PATHOLOGY Routine 02/26/2021 5:10 PM EDT SPECIMEN TO PATHOLOGY Routine 02/26/2021 5:10 PM EDT SURGICAL PATHOLOGY REPORT Routine 02/26/2021 4:53 PM EDT Colonoscopy, [address] ([id number]) 02/26/2021 4:28 PM EDT a repeat colonoscopy in two years from 02/22/19 COLONOSCOPY Routine 02/26/2021 4:21 PM EDT POCT GLUCOSE Routine 02/26/2021 3:42 PM EDT documented in this encounter Results * POCT Glucose (02/26/2021 5:51 PM EDT) Glucose, POC 160 65 - 199 mg/dL [facility] Comment: Supplemental ranges: <140 mg/dL before meals <180 mg/dL all other times of the day Blood specimen (specimen) 02/26/2021 5:51 PM EDT 02/26/2021 12:00 PM EDT L Karthik Barlow MD POINT OF CARE TEST O CEE Performing Organization Address [facility] Co de Phone Number [facility] [place] [address] * Specimen to Pathology (02/26/2021 5:10 PM EDT) AP Specimen 02/26/2021 5:10 PM EDT 02/26/2021 5:10 PM EDT Narrative [facility] - 02/26/2021 5:10 PM EDT Specimen requisition ordered. ??Separate Pathology report to follow L Karthik Barlow MD PATHOLOGY/CYTOLOGY O CEE Performing Organization Address City/[facility]/ZIP Co de Phone Number [facility] [place] [address] * Specimen to Pathology (02/26/2021 5:10 PM EDT) AP Specimen 02/26/2021 5:10 PM EDT 02/26/2021 5:10 PM EDT Narrative [facility] - 02/26/2021 5:10 PM EDT Specimen requisition ordered. ??Separate Pathology report to follow L Karthik Barlow MD PATHOLOGY/CYTOLOGY O CEE [facility] [place] [address] * Specimen to Pathology (02/26/2021 5:10 PM EDT) AP Specimen 02/26/2021 5:10 PM EDT 02/26/2021 5:10 PM EDT Narrative [facility] - 02/26/2021 5:10 PM EDT Specimen requisition ordered. ??Separate Pathology report to follow L Karthik Barlow MD PATHOLOGY/CYTOLOGY O RDERABLES Performing Organization Address [facility] Co de Phone Number [facility] [place] [address] * Surgical Pathology Report (02/26/2021 4:53 PM EDT) Final Diagnosis [id number] ? Location: 4T; 08; A The signing [...] MD Verified: ??03/04/2021 16:33 ??Pathologist Performed at: ??-[facility] Dept. of Pathology, [place], [place] SPECIMEN(S) SUBMITTED [...] labeled C1. ??shb 03/04/2021 4:33 PM EDT [facility] GI Biopsy 02/26/2021 4:53 PM EDT 02/26/2021 4:53 PM EDT GI Biopsy 02/26/2021 4:53 PM EDT 02/26/2021 4:53 PM EDT GI Biopsy 02/26/2021 4:53 PM EDT 02/26/2021 4:53 PM EDT L Karthik Barlow MD PATHOLOGY/CYTOLOGY O DANIELERAOMAR [facility] [place] [address] * COLONOSCOPY (02/26/2021 4:21 PM EDT) COLONOSCOPY [facility] ___ Procedure Date: 02/26/2021 4:21 PM ? Patient Name: Brian Rodriguez ? Date of : 1950 ? Age: 70 ? Order #: [id number] ? Instrument Name: [id number] ? ___ Procedure: ? Colonoscopy Indications: ? [...] preparation was evaluated using ? the BBPS ([place] Bowel Preparation ? Scale) with scores of: [...] Glucose, POC 128 65 - 199 mg/dL [facility] Comment: Supplemental ranges: <140 mg/dL before meals <180 mg/dL all other times of the day Blood specimen (specimen) 02/26/2021 3:42 PM EDT 02/26/2021 12:00 PM EDT Dion Barlow MD POINT OF CARE TEST O RDERABLES [facility] [place] [address] documented in this encounter Visit Diagnoses Not [...] RN) documented in this encounter Care Teams Transportation Director Relationship Specialty Start Date End Date Josue Wilkinson MD PCP - General General Internal Medicine 02/14/2107/26 documented as of this encounter
--- OUTSIDE RECORDS SUMMARY | 2024-07-18 14:29 | XMS_ITS | Encounter Summary ---
Author Organization [facility] Address [facility] [place] [address] Care Team Providers Care Die Maker Electronic Name Role Phone Maximilian Fall MD Primary Care Provider [phone] Encounter Details Date Type Department Care Team (Late st Contact Info) Description 02/22/2019 3:30 PM EDT - 02/22/2019 4:15 PM EDT Surgery [place] [address] Dion Barlow MD [facility] [place] [address] COLONOSCOPY FLEXIBLE, WITH BX (WRVU 3.56) Social [...] - 02/22/2019 5:05 PM EDT Please call [phone] before 8pm Mon-Fri with problems, questions or concerns. If you call after 8pm or on weekends, call the Hospital at [phone] and ask to speak to the Podiatric Aide airline reservation agent and the vortex operator will contact that person for you. * Attachments The following attachments cannot be sent through Care Everywhere. * Colonoscopy: Post-op (Pakistani) * Colon Polyps (Pakistani) documented in this encounter Medications at Time [...] 9:00 AM EDT Office [place] [address] Dion Barlow MD [facility] [place] [address] 09/01/2024 9:40 AM EDT Office Visit Cardiology at [address] [place] [address] Franky Shaver MD [facility] [place] [address] 09/01/2024 11:20 AM EDT Office Visit Dermatology at [facility] [address] [place] [address] Gómez Mercer MD [facility] DR EDD[place] [address] 09/21/2024 2:45 PM EDT Office Visit [facility] [place] [address] Trung Hoyos MD [facility] [place] [address] documented as of this encounter Procedures Procedure [...] PM EDT 02/22/2019 4:56 PM EDT Narrative [facility] - 02/22/2019 4:56 PM EDT Specimen requisition ordered. ??Separate Pathology report to follow L Karthik Barlow MD PATHOLOGY/CYTOLOGY O CEE Performing Organization Address [facility]/[place] [address] * Specimen to Pathology (02/22/2019 4:56 PM EDT) AP Specimen 02/22/2019 4:56 PM EDT 02/22/2019 4:56 PM EDT Narrative [facility] - 02/22/2019 4:56 PM EDT Specimen requisition ordered. ??Separate Pathology report to follow L Karthik Barlow MD PATHOLOGY/CYTOLOGY O CEE Performing Organization Address City/[facility]/[place] [address] * Specimen to Pathology (02/22/2019 4:56 PM EDT) AP Specimen 02/22/2019 4:56 PM EDT 02/22/2019 4:56 PM EDT Narrative [facility] - 02/22/2019 4:56 PM EDT Specimen requisition ordered. ??Separate Pathology report to follow L Karthik Barlow MD PATHOLOGY/CYTOLOGY O CEE Performing Organization Address City/[facility]/ZIP Co [place] [address] * Specimen to Pathology (02/22/2019 4:56 PM EDT) AP Specimen 02/22/2019 4:56 PM EDT 02/22/2019 4:56 PM EDT Narrative [facility] - 02/22/2019 4:56 PM EDT Specimen requisition ordered. ??Separate Pathology report to follow L Karthik Barlow MD PATHOLOGY/[place] [address] * Specimen to Pathology (02/22/2019 4:56 PM EDT) AP Specimen 02/22/2019 4:56 PM EDT 02/22/2019 4:56 PM EDT Narrative [facility] - 02/22/2019 4:56 PM EDT Specimen requisition ordered. ??Separate Pathology report to follow L Karthik Barlow MD PATHOLOGY/[place] [address] * Specimen to Pathology (02/22/2019 4:56 PM EDT) AP Specimen 02/22/2019 4:56 PM EDT 02/22/2019 4:56 PM EDT Narrative [facility] - 02/22/2019 4:56 PM EDT Specimen requisition ordered. ??Separate Pathology report to follow L Karthik Barlow MD PATHOLOGY/[place] [address] * Specimen to Pathology (02/22/2019 4:56 PM EDT) AP Specimen 02/22/2019 4:56 PM EDT 02/22/2019 4:56 PM EDT [facility] - 02/22/2019 4:56 PM EDT Specimen requisition ordered. ??Separate Pathology report to follow L Karthik Barlow MD PATHOLOGY/CYTOLOGY O CEE Performing Organization Address [facility] Co de Phone Number [facility] [place] [address] * Specimen to Pathology (02/22/2019 4:56 PM EDT) AP Specimen 02/22/2019 4:56 PM EDT 02/22/2019 4:56 PM EDT Narrative [facility] - 02/22/2019 4:56 PM EDT Specimen requisition ordered. ??Separate Pathology report to follow L Karthik Barlow MD PATHOLOGY/CYTOLOGY O CEE Performing Organization Address [facility] de Phone Number [facility] [place] [address] * Surgical Pathology Report (02/22/2019 4:23 PM EDT) Final Diagnosis [id number] ? Location: 4T; EA06; A The signing [...] Tucker MD Verified: ??02/26/2019 ?Pathologist Performed at: ??-[facility] Dept. of Pathology, [place], [place] CLINICAL INFORMATION Specimen Submitted: A - [...] labeled H1-H2. ??apb 02/26/2019 4:24 PM EDT [facility] GI Biopsy 02/22/2019 4:23 [...] O RDERABLES [facility] [place] [address] * COLONOSCOPY (02/22/2019 3:57 PM EDT) COLONOSCOPY [facility] Endoscopy ___ Procedure Date: 02/22/2019 3:57 PM ? Patient Name: Brian Rodriguez ? Date of : 1950 ? Age: 68 ? Order #: [id number] ? Instrument Name: [id number] ? ___ Procedure: ? Colonoscopy Indications: ? [...] preparation was evaluated using ? the BBPS ([place] Bowel Preparation ? Scale) with scores of: [...] RN) documented in this encounter Care Teams Die Maker Electronic Relationship Specialty Start Date End Date Maximilian Fall MD [address] [address] PCP - General 10/01/11 02/13/21 documented as of this encounter
--- OUTSIDE RECORDS SUMMARY | 2024-07-18 14:29 | XMS_ITS | Encounter Summary ---
Author Organization [facility] [place] [address] Care Team Providers Care Derrick Follower Name Role Phone Maximilian Fall MD Primary Care Provider [phone] Reason for Visit * Reason Onset Date Comments Medication Refill 03/26/2018 Encounter Details Date Type Department Care Team (Late st Contact Info) Description 03/26/2018 Ref[place] [address] Bethany Marquez RN Social History Tobacco Use [...] 9:00 AM EDT Office [place] [address] Dion Barlow MD [facility] [place] [address] 09/01/2024 9:40 AM EDT Office Visit Cardiology at [address] [place] [address] Franky Shaver MD [facility] [place] [address] 09/01/2024 11:20 AM EDT Office Visit Dermatology at [facility] [address] [place] [address] Gómez Mercer MD [facility] [place] [address] 09/21/2024 2:45 PM EDT Office Visit [place] [address] Trung Hoyos MD [facility] [place] [address] documented as of this encounter Visit Diagnoses Not on filedocumented in this encounter Care Teams Derrick Follower Relationship Specialty Start Date End Date Maximilian Fall MD [address] [facility] [place] [address] PCP - General 10/01/11 02/13/21 documented as of this encounter
--- OUTSIDE RECORDS SUMMARY | 2024-07-18 14:29 | XMS_ITS | Encounter Summary ---
[place] [address] Care Team Providers Care Body Service Team Member Name Role Phone Maximilian Fall MD Primary Care Provider [phone] Encounter Details Date Type Department Care Team (Late st Contact Info) Description 04/25/2019 Telephone [place] [address] Brandy Durham Social History Tobacco Use Types [...] conditions (especially heart or lung)?:asthma BMI:30.53 Prep:proclear Pv Design Engineer?:yes Instructions to patient?:instructions to pt@4L/Exit~jhd documented in this encounter Plan of Treatment Upcoming Encounters Date Type Department Care Team (Late st Contact Info) Description 08/15/2024 9:00 AM EDT Office [place] [address] Dion Barlow MD [facility] [place] [address] 09/01/2024 9:40 AM EDT Office Visit Cardiology at [address] [address] Franky Shaver MD [facility] [place] [address] 09/01/2024 11:20 AM EDT Office Visit Dermatology at [address] [place] [address] Gómez Mercer MD [facility] [place] [address] 09/21/2024 2:45 PM EDT Office Visit [place] [address] Trung Hoyos MD [facility] [place] [address] documented as of this encounter Visit Diagnoses Not on filedocumented in this encounter Care Teams Body Service Team Member Relationship Specialty Start Date End Date Maximilian Fall MD [address] [facility] [place] [address] PCP - General 10/01/11 02/13/21 documented as of this encounter
--- OUTSIDE RECORDS SUMMARY | 2024-07-18 14:29 | XMS_ITS | Encounter Summary ---
Author Organization [facility] Address [facility] [place] [address] Care Team Providers Care Access Spec Name Role Phone Maximilian Fall MD Primary Care Provider [phone] Encounter Details Date Type Department Care Team (Latest Contact Info) Description 04/25/2019 10:00 AM EDT Office [place] [address] Marcelle Weinberg APRN [facility] [place] [address] Left sided colitis without complications Social History [...] and have it re read here at [facility] # Colonoscopy again spring 2020. # Avoid non-steroidal anti-inflammatory medications (NSAIDs) including but not limited to Advil, ibuprofen, Motrin, Aleve, Excedrin, naproxen, Mobic, indomethacin, and aspirin. Acetaminophen (Tylenol) is okay for aches and pains. # Please follow up with your PCP regarding spermatic cord changes seen on your CT scan and recommend scrotal ultrasound ? documented in this encounter Progress Notes * Marcelle Weinbreg APRN - 04/25/2019 10:00 AM EDT Problem List? Diagnosis? Ulcerative colitis ? Overview Note:? Colonoscopy 04/08/10 (Dr. Gomes [facility]) - inflammation only within the [...] 3.66) performed by Dion Osullivan MD at [facility] ??? PRO COLONOSCOPY, DIAGNOSTIC ?? 11/27/2011 ?? COLONOSCOPY, DIAGNOSTIC performed by Dion OSULLIVAN at [facility] ??? PRO COLONOSCOPY, DIAGNOSTIC ?? 07/13/2014 ?? COLONOSCOPY, DIAGNOSTIC performed by Dion Osullivan MD at [facility] ??? PRO SIGMOIDOSCOPY, DIAGNOSTIC ?? 03/16/2012 ?? FLEXIBLE SIGMOIDOSCOPY performed by YUDI MALLOY at [facility] ??? UPPER GI ENDOSCOPY, EXAM ?? 10/01/2012 ?? UPPER GI ENDOSCOPY performed by Dion OSULLIVAN at [facility] ? Social History ?? [...] mg/L 5.0 (H) Surgical Pathology Report Unknown [id number] ... COLONOSCOPY Unknown [facility]... COLONOSCOPY COLONOSCOPY Collected: 02/22/19 0805 Resulting lab: PROVATION Value: [facility] Endoscopy Procedure Date: 02/22/2019 3:57 PM ? Patient Name: Brian Rodriguez ? Date of : 1950 ? Age: 68 ? Order #: [id number] ? Instrument Name: [id number] ? Procedure: ? Colonoscopy Indications: ? High [...] ?bowel preparation was evaluated using ?the BBPS ([place] Bowel Preparation ?Scale) with scores of: Right [...] HARVEY, Ana Verified: ??02/26/2019 ?Pathologist Performed at: ??-[facility] Dept. of Pathology, [place], [place] 03/07/19 CT abd/pelvis ( [facility]): Non [...] He had a CT abd/pelvis done at [facility] (03/07/19)when he presented to his PCP [...] and have it re read here at [facility] # Colonoscopy again spring 2020. # Avoid [...] 9:00 AM EDT Office [place] [address] Dion Osullivan MD [facility] [place] [address] 09/01/2024 9:40 AM EDT Office Visit Cardiology at [address] [place] [address] Franky Shaver MD [facility] [place] [address] 09/01/2024 11:20 AM EDT Office Visit Dermatology at [facility] [address] [place] [address] Gómez Mercer MD [facility] DR EDDIE [place] [address] 09/21/2024 2:45 PM EDT Office Visit Pain and Spine Center at [facility] [place] [address] Trung Hoyos MD [facility] [place] [address] Scheduled Orders Name Type Priority Associated Diagnoses [...] 12:00 PM EDT) Neutrophil % 66.3 % [facility] Neutrophil Absolute 4.90 1.70 - 6.10 x10(3)/[facility] Lymph % 24.0 % [facility] Lymphocytes Abs 1.8 0.9 - 3.2 x10(3)/[facility] Monocyte % 6.8 % [facility] Monocyte Abs 0.5 0.3 - 0.9 x10(3)/[facility] Eos % 2.0 % [facility] Eosinophils Abs 0.2 0.0 - 0.4 x10(3)/[facility] Basophil % 0.5 % [facility] Baso Absolute 0.0 0.0 - 0.1 x10(3)/[facility] Immature Gran % 0.40 % [facility] Comment: Immature granulocytes(IG's)percentage and absolute count will include metamyelocytes, myelocytes, and promyelocytes. Blood smears from CBCs yielding IG's will be scanned manually for concordance. If this scan disagrees with the automated IG or if promyelocytes are noted, a manual differential will be performed. Immature Gran Absolute 0.03 0.00 - 0.04 x10(3)/[facility] Blood specimen (specimen) 04/25/2019 12:00 PM EDT 04/25/2019 12:03 PM EDT Narrative Resulting Agency Comment Spec In Lab Marcelle Weinberg OPTICAL ENGINEERING TECHNICIAN HEMATOLOGY ORDERA BLES [facility] [place] [address] * (ABNORMAL) Hemogram (04/25/2019 12:00 PM EDT) White Blood Cell 7.4 4.0 - 9.5 x10(3)/mc L [facility] Red Blood Cell 4.22(L) 4.58 - 5.54 x10(6)/mc L [facility] Hemoglobin 13.7 13.7 - 16.5 gm/dL [facility] Hematocrit 41.9 40.5 - 48.5 % [facility] Mean Cell Volume 99.3(H) 82.9 - 93.1 fL [facility] Mean Cell Hemoglobin 32.5(H) 27.5 - 32.1 pg [facility] Mean Cell Hemoglobin Concentration 32.7 32.0 - 35.7 gm/dL [facility] Platelet 239 145 - 357 x10(3)/mc L [facility] RDW Standard Deviation 45.9(H) 36.0 - 45.0 fL [facility] RDW coefficient of variation 12.6 11.4 - 13.8 % [facility] Mean Platelet Volume 11.0 7.6 - 12.9 fL [facility] NRBC% auto 0.0 % [facility] NRBC Absolute 0.000 0.000 - 0.000 x10(3)/mc L [facility] Blood specimen (specimen) 04/25/2019 12:00 PM EDT 04/25/2019 12:03 PM EDT Narrative Resulting Agency Comment Spec In Lab Marcelle Weinberg OPTICAL ENGINEERING TECHNICIAN HEMATOLOGY ORDERA BLES Performing Organization Address [facility] Co de Phone Number [facility] [place] [address] * CRP, acute inflammation (04/25/2019 12:00 PM EDT) C-Reactive Protein 2.5 <=4.9 mg/L [facility] Blood specimen (specimen) 04/25/2019 12:00 PM EDT 04/25/2019 12:03 PM EDT Narrative Resulting Agency Comment Spec In Lab Marcelle Weinberg OPTICAL ENGINEERING TECHNICIAN CHEMISTRY ORDERAB LES Performing Organization Address City/[facility]/ZIP Co de Phone Number [facility] [place] [address] * (ABNORMAL) Sedimentation rate (04/25/2019 12:00 PM EDT) Sedimentation Rate Automated 28(H) 0 - 15 mm/hr [facility] Blood specimen (specimen) 04/25/2019 12:00 PM EDT 04/25/2019 12:03 PM EDT Narrative Resulting Agency Comment Spec In Lab Marcelle Weinberg OPTICAL ENGINEERING TECHNICIAN HEMATOLOGY ORDERA BLES [facility] [place] [address] * (ABNORMAL) Comprehensive metabolic panel (non-fasting) (04/25/2019 12:00 PM EDT) Glucose 84 65 - 199 mg/dL [facility] Comment:Diabetes: >=200 mg/d L plus symptoms Blood Urea Nitrogen 15 10 - 20 mg/dL [facility] Creatinine 1.14 0.80 - 1.50 mg/dL [facility] Sodium 140 135 - 145 mmol/L [facility] Potassium 4.8 3.5 - 5.0 mmol/L [facility] Comment: Please note: ??Patients with WBC >100,000 may have falsely elevated Potassium levels. ??For accurate Potassium quantification in these patients send serum separator tube (gold top) for subsequent determinations. ??Contact the Clinical Chemistry Laboratory if there are any questions. Chloride 104 98 - 107 mmol/L [facility] Carbon Dioxide 25 22 - 31 mmol/L [facility] Anion Gap 11 5 - 15 mmol/L [facility] Calcium 9.8 8.5 - 10.5 mg/dL [facility] Protein, Total 8.5(H) 6.1 - 8.0 gm/dL [facility] Albumin 4.4 3.2 - 5.2 gm/dL [facility] Aspartate Aminotransferase 12 0 - 39 unit/L [facility] Alanine Aminotransferase 14 0 - 55 unit/L [facility] Alkaline Phosphatase 70 40 - 120 unit/L [facility] Bilirubin, Total 0.4 0.2 - 1.3 mg/dL [facility] Est Glomerular Filtration Rate 65 >=60 mL/min/1. 73 m?? [facility] Comment: The eGFR was calculated using the CKD-EPI equation. As with all creatinine based estimates of kidney function, eGFR values calculated with the CKD-EPI equation are not accurate in patients with acute kidney failure, extremes of body mass or the acutely ill. http://[employer]/[facility]kf eGFR 75 >=60 mL/min/1. 73 m?? [facility] Comment: The eGFR was calculated using the CKD-EPI equation. As with all creatinine based estimates of kidney function, eGFR values calculated with the CKD-EPI equation are not accurate in patients with acute kidney failure, extremes of body mass or the acutely ill. http://[employer]/[facility]AL[facility]kf Blood specimen (specimen) 04/25/2019 12:00 PM EDT 04/25/2019 12:03 PM EDT Narrative Resulting Agency Comment Spec In Lab Marcelle Weinberg OPTICAL ENGINEERING TECHNICIAN CHEMISTRY ORDERAB LES Performing Organization Address City/State/[facility] Co de Phone Number [facility] [place] [address] documented in this encounter Visit Diagnoses Diagnosis Left sided colitis without complications Left sided ulcerative (chronic) colitis documented in this encounter Care Teams Access Spec Relationship Specialty Start Date End Date Maximilian Fall MD [address] [place] [address] PCP - General 10/01/11 02/13/21 documented as of this encounter
--- OUTSIDE RECORDS SUMMARY | 2024-07-18 14:29 | XMS_ITS | Encounter Summary ---
Author Organization [facility] Address [facility] [place] [address] Care Team Providers Care Sharepoint Architect Name Role Phone Maximilian Fall MD Primary Care Provider [phone] Reason for Visit * Reason Comments Follow-up Encounter Details Date Type Department Care Team (Late st Contact Info) Description 05/03/2018 8:30 AM EDT Office [place] [address] Dion Barlow MD [facility] [place] [address] Ulcerative pancolitis with complication Social History Tobacco [...] Overview Note: ? Colonoscopy 04/08/10 ([facility] [...] visit. 15 min of this 25 min [id number] visit was spent counseling the patient in the issues outlined above. Davina Barlow MD [employer] research and strategic analysis Section of Gastroenterology [place] [address] CC: Maximilian Fall MD [address] [place] [phone] documented in this encounter Miscellaneous Notes * Addendum Note - Izabela Spencer - 05/03/2018 9:35 AM EDTAddended by: IZABELA SPENCER on: 05/03/2018 09:35 AM Modules accepted: Orders documented in this encounter Plan of Treatment Upcoming Encounters Date Type Department Care Team (Late st Contact Info) Description 08/15/2024 9:00 AM EDT Office [place] [address] Dion Barlow MD [facility] [place] [address] 09/01/2024 9:40 AM EDT Office Visit Cardiology at [address] [place] [address] Franky Shaver MD [facility] [place] [address] 09/01/2024 11:20 AM EDT Office Visit Dermatology at [facility] [address] [place] [address] Gómez Mercer MD [facility] [place] [address] 09/21/2024 2:45 PM EDT Office Visit Pain and Spine Center at [facility] [place] [address] Trung Hoyos MD [facility] [place] [address] documented as of this encounter Procedures Procedure [...] 9:46 AM EDT) Neutrophil % 62.5 % [facility] Neutrophil Absolute 3.86 1.70 - 6.10 x10(3)/[facility] LABORAT[facility] Lymph % 27.2 % [facility] Lymphocytes Abs 1.7 0.9 - 3.2 x10(3)/[facility] Monocyte % 7.1 % [facility] Monocyte Abs 0.4 0.3 - 0.9 x10(3)/[facility] Eos % 2.1 % [facility] Eosinophils Abs 0.1 0.0 - 0.4 x10(3)/[facility] Basophil % 0.6 % [facility] Baso Absolute 0.0 0.0 - 0.1 x10(3)/[facility] Immature Gran % 0.50 % [facility] Comment: Immature granulocytes(IG's)percentage and absolute count will include metamyelocytes, myelocytes, and promyelocytes. Blood smears from CBCs yielding IG's will be scanned manually for concordance. If this scan disagrees with the automated IG or if promyelocytes are noted, a manual differential will be performed. Immature Gran Absolute 0.03 0.00 - 0.04 x10(3)/[facility] Blood specimen (specimen) 05/03/2018 9:46 AM EDT 05/03/2018 10:12 AM EDT Narrative Resulting Agency Comment Spec In Lab L Karthik Barlow MD HEMATOLOGY ORDERABLE S [facility] [place] [address] * (ABNORMAL) Hemogram (05/03/2018 9:46 AM EDT) White Blood Cell 6.2 4.0 - 9.5 x10(3)/mc L [facility] Red Blood Cell 4.02(L) 4.58 - 5.54 x10(6)/ L [facility] Hemoglobin 13.0(L) 13.7 - 16.5 gm/dL [facility] Hematocrit 39.7(L) 40.5 - 48.5 % [facility] Mean Cell Volume 98.8(H) 82.9 - 93.1 fL [facility] Mean Cell Hemoglobin 32.3(H) 27.5 - 32.1 pg [facility] Mean Cell Hemoglobin Concentration 32.7 32.0 - 35.7 gm/dL [facility] Platelet 202 145 - 357 x10(3)/mc L [facility] RDW Standard Deviation 45.3(H) 36.0 - 45.0 fL [facility] RDW coefficient of variation 12.5 11.4 - 13.8 % [facility] Mean Platelet Volume 11.2 7.6 - 12.9 fL [facility] NRBC% auto 0.0 % [facility] NRBC Absolute 0.000 0.000 - 0.000 x10(3)/mc L [facility] Blood specimen (specimen) 05/03/2018 9:46 AM EDT 05/03/2018 10:12 AM EDT Narrative Resulting Agency Comment Spec In Lab L Karthik Barlow MD HEMATOLOGY ORDERABLE S Performing Organization Address City/[facility]/ZIP Co de Phone Number [facility] [place] [address] * CRP, acute inflammation (05/03/2018 9:46 AM EDT) C-Reactive Protein 3.1 <=4.9 mg/L [facility] Blood specimen (specimen) 05/03/2018 9:46 AM EDT 05/03/2018 10:12 AM EDT Narrative Resulting Agency Comment Spec In Lab L Karthik Barlow MD CHEMISTRY ORDERABLES [facility] [place] [address] * Comprehensive metabolic panel (non-fasting) (05/03/2018 9:46 AM EDT) Glucose 110 65 - 199 mg/dL [facility] Comment:Diabetes: >=200 mg/d L plus symptoms Blood Urea Nitrogen 13 10 - 20 mg/dL [facility] Creatinine 0.92 0.80 - 1.50 mg/dL [facility] Sodium 143 135 - 145 mmol/L [facility] Potassium 4.4 3.5 - 5.0 mmol/L [facility] Comment: Please note: ??Patients with WBC >100,000 may have falsely elevated Potassium levels. ??For accurate Potassium quantification in these patients send serum separator tube (gold top) for subsequent determinations. ??Contact the Clinical Chemistry Laboratory if there are any questions. Chloride 105 98 - 107 mmol/L [facility] Carbon Dioxide 27 22 - 31 mmol/L [facility] Anion Gap 11 5 - 15 mmol/L [facility] Calcium 9.9 8.5 - 10.5 mg/dL [facility] Protein, Total 7.7 6.1 - 8.0 gm/dL [facility] Albumin 4.1 3.2 - 5.2 gm/dL [facility] Aspartate Aminotransferase 11 0 - 39 unit/L [facility] Alanine Aminotransferase 13 0 - 55 unit/L [facility] Alkaline Phosphatase 61 40 - 120 unit/L [facility] Bilirubin, Total 0.3 0.2 - 1.3 mg/dL [facility] Est Glomerular Filtration Rate >60 >=60 [facility] Comment: The reported eGFR should be multiplied by 1.2 for patients. The MDRD is not an appropriate measure of renal function for patients with body mass extremes or in patients with acute kidney failure. http://[employer]/DHnkdep http://[employer]/DHMCnkf Blood specimen (specimen) 05/03/2018 9:46 AM EDT 05/03/2018 10:12 AM EDT Narrative Resulting Agency Comment Spec In Lab L Karthik Barlow MD CHEMISTRY ORDERABLES [facility] [place] [address] documented in this encounter Visit Diagnoses Diagnosis Ulcerative pancolitis with complication documented in this encounter Care Teams Sharepoint Architect Relationship Specialty Start Date End Date Maximilian Fall MD [address] [facility] [address] [place] [address] PCP - General 10/01/11 02/13/21 documented as of this encounter
--- OUTSIDE RECORDS SUMMARY | 2024-07-18 14:29 | XMS_ITS | Encounter Summary ---
Author Organization [facility] Address [facility] [place] [address] Care Team Providers Care Home Health Attendant Name Role Phone Maximilian Fall MD Primary Care Provider Encounter Details Date Type Department Care Team (Late st Contact Info) Description 02/22/2019 Orders [place] [phone] Dion Barlow MD [facility] [place] [address] Social History Tobacco Use Types Packs/Day Years [...] AM EDT Office Visit [place] [phone] Dion Barlow MD [facility] [place] [address] 09/01/2024 9:40 AM EDT Office Visit Cardiology at [address] [place] [phone] Franky Shaver MD [facility] [place] [address] 09/01/2024 11:20 AM EDT Office Visit Dermatology at [facility] [address] [place] [phone] Gómez Mercer MD [facility] DR EDD[place] [address] 09/21/2024 2:45 PM EDT Office Visit [facility] [place] [address] Trung Hoyos MD [facility] [place] [address] documented as of this encounter Visit Diagnoses Not on filedocumented in this encounter Care Teams Home Health Attendant Relationship Specialty Start Date End Date Maximilian Fall MD [address] [facility] [address] [place] [address] PCP - General 10/01/11 02/13/21 documented as of this encounter
--- OUTSIDE RECORDS SUMMARY | 2024-07-18 14:29 | XMS_ITS | Encounter Summary ---
Author Organization [facility] Address [facility] [place] [address] Care Team Providers Care Joy Operator Name Role Phone Maximilian Fall MD Primary Care Provider [phone] Encounter Details Date Type Department Care Team (Latest Contact Info) Description 09/12/2019 3:40 PM EDT Office Visit [place] [address] Dion Barlow MD [facility] [place] [address] Left sided colitis without complications Social History [...] IBD History: ?? Colonoscopy 04/08/10 (Dr. Gomes [facility]) - inflammation only within [...] Final ??? UPPER GI ENDOSCOPY 04/28/2019 Final Value:[facility] Procedure Date: 04/28/2019 4:39 PM Patient Name: Brian Rodriguez Date of : 1950 Age: 68 Order #: [id number] Instrument Name: [id number] Procedure: Upper GI endoscopy Indications: Abnormal CT of the GI tract (duodenal thickening) Providers: Iza Coates MD, Nohemi Ball RN, Jonathan Ko, Coin Machine Service Repairer Referring MD: Maximilian Fall MD Requesting Provider: [...] PM ??? Surgical Pathology Report 04/28/2019 Final Value:[id number] Location: 4T; [facility]; A The signing pathologist has (i) examined the relevant preparation(s) for the specimen(s) and (ii) rendered or confirmed the diagnosis(es). . Surgical Pathology DIAGNOSIS A - Random duodenum, biopsy: Duodenal mucosa within normal limits, including preserved villous architecture. B - Fundic gland, polypectomy: Gastric fundic gland polyp. Electronically signed by: Joana Soler MD Verified: 05/02/2019 Pathologist Performed at: -[facility] Dept. of Pathology, [place], [place] CLINICAL INFORMATION Specimen Submitted: A - [...] patient. Anthony Hamlin [place] [address] ATTENDING ADDENDUM I interviewed and examined Brian [...] sulfasalazine. 15 min of this 20 min [id number] visit was spent counseling the patient in the issues outlined above. Davina Barlow MD Tank Inspectormedical certification specialist Co-Director, [facility] Section of Gastroenterology [place] [address] documented in this encounter Plan of Treatment Upcoming Encounters Date Type Department Care Team (Late st Contact Info) Description 08/15/2024 9:00 AM EDT Office Visit Gastroenterology at [place] [phone] Dion Barlow MD [facility] [place] [address] 09/01/2024 9:40 AM EDT Office Visit Cardiology at [address] [place] [address] Franky Shaver MD [facility] [place] [address] 09/01/2024 11:20 AM EDT Office Visit Dermatology at [place] [address] [place] [address] Gómez Mercer MD [facility] [place] [address] 09/21/2024 2:45 PM EDT Office Visit [facility] [place] [phone] Trung Hoyos MD [facility] [place] [address] documented as of this encounter Visit Diagnoses Diagnosis Left sided colitis without complications Left sided ulcerative (chronic) colitis documented in this encounter Care Teams Joy Operator Relationship Specialty Start Date End Date Maximilian Fall MD [address] [facility] [address] [place] [address] PCP - General 10/01/11 02/13/21 documented as of this encounter
--- OUTSIDE RECORDS SUMMARY | 2024-07-18 14:29 | XMS_ITS | Encounter Summary ---
Author Organization [facility] [place] [address] Care Team Providers Care Wireless Sales Manager Name Role Phone Maximilian Fall MD Primary Care Provider [phone] Reason for Visit * Reason Onset Date Comments Medication Refill 05/03/2018 Encounter Details Date Type Department Care Team (Late Contact Info) Description 05/03/2018 Refill [place] [address] Bethany Trivedi, RN Social History Tobacco Use [...] AM EDT Office [place] [phone] Dion Barlow MD [facility] [place] [address] 09/01/2024 9:40 AM EDT Office Visit Cardiology at [address] [phone] Franky Shaver MD [facility] [place] [address] 09/01/2024 11:20 AM EDT Office Visit Dermatology at [facility] [address] [place] [address] Gómez Mercer MD [facility] DR EDDIE [place] [address] 09/21/2024 2:45 PM EDT Office Visit Pain and Spine Center at [facility] [place] [place] [phone] Trung Hoyos MD [facility] [place] [address] documented as of this encounter Visit Diagnoses Not on filedocumented in this encounter Care Teams Wireless Sales Manager Relationship Specialty Start Date End Date Maximilian Fall MD [address] [place] [address] PCP - General 10/01/11 02/13/21 documented as of this encounter
--- OUTSIDE RECORDS SUMMARY | 2024-07-18 14:29 | XMS_ITS | Encounter Summary ---
Author Organization [facility] [place] [address] Care Team Providers Care Cable Braider Name Role Phone Maximilian Fall MD Primary Care Provider [phone] Encounter Details Date Type Department Care Team (Late st Contact Info) Description 03/01/2020 Telephone [place] [phone] Suzanne Guillermo Social History Tobacco Use Types [...] EDT Office [place] [phone] Dion Barlow MD [facility] DR GASTROENTEROLOGY [place], [place] [address] 09/01/2024 9:40 AM EDT Office Visit Cardiology at [address] [place] [phone] Franky Shaver MD [facility] [place] [address] 09/01/2024 11:20 AM EDT Office Visit Dermatology at [facility] [address] [place] [address] Gómez Mercer MD [facility] [place] [address] 09/21/2024 2:45 PM EDT Office Visit Pain and Spine Center at [facility] [place] [address] Trung Hoyos MD [facility] [place] [address] documented as of this encounter Visit Diagnoses Not on filedocumented in this encounter Care Teams Cable Braider Relationship Specialty Start Date End Date Maximilian Fall MD [address] [facility] 1 [place] [address] PCP - General 10/01/11 02/13/21 documented as of this encounter
--- OUTSIDE RECORDS SUMMARY | 2024-07-18 14:29 | XMS_ITS | Encounter Summary ---
Author Organization [facility] [place] [address] Care Team Providers Care Lead Project Manager Name Role Phone Maximilian Fall MD Primary Care Provider [phone] Encounter Details Date Type Department Care Team (Late st Contact Info) Description 03/26/2018 Telephone [place] [phone] Bethany Trivedi, RN Social History Tobacco Use [...] difficulty getting Cortifoam because it is on receiving team member back order. Has been diarrhea and bleeding [...] EDT Office [place] [address] Dion Barlow MD [facility] [place] [address] 09/01/2024 9:40 AM EDT Office Visit Cardiology at [address] [phone] Franky Shaver MD [facility] [place] [address] 09/01/2024 11:20 AM EDT Office Visit Dermatology at [address] [place] [address] Gómez Mercer MD [facility] [place] [address] 09/21/2024 2:45 PM EDT Office Visit [facility] [place] [address] Trung Hoyos MD [facility] [place] [address] documented as of this encounter Visit Diagnoses Not on filedocumented in this encounter Care Teams Lead Project Manager Relationship Specialty Start Date End Date Maximilian Fall MD [address] [facility] [facility] [facility] [facility] 1 [place] [address] PCP - General 10/01/11 02/13/21 documented as of this encounter
--- OUTSIDE RECORDS SUMMARY | 2024-07-18 14:29 | XMS_ITS | Encounter Summary ---
Author Organization [facility] [place] [address] Care Team Providers Care Chamber Walker Name Role Phone Maximilian Fall MD Primary Care Provider [phone] Encounter Details Date Type Department Care Team (Latest Contact Info) Description 04/25/2019 12:15 PM EDT Ancillary Procedure [place] [phone] Marcelle Weinberg, JAZMINE [facility] [place] [address] Left sided colitis without complications Social History [...] 9:00 AM EDT Office [place] [phone] Dion Barlow MD [facility] [place] [address] 09/01/2024 9:40 AM EDT Office Visit Cardiology at [address] [place] [address] Franky Shaver MD [facility] [place] [address] 09/01/2024 11:20 AM EDT Office Visit Dermatology at [facility] [address] [place] [address] Gómez Mercer MD [facility] [place] [address] 09/21/2024 2:45 PM EDT Office Visit Pain and Spine Center at [facility] [place] [address] Trung Hoyos MD [facility] [place] [address] documented as of this encounter Visit Diagnoses Diagnosis Left sided colitis without complications Left sided ulcerative (chronic) colitis documented in this encounter Care Teams Chamber Walker Relationship Specialty Start Date End Date Maximilian Fall MD [address] [facility] 1 [place] [address] PCP - General 10/01/11 02/13/21 documented as of this encounter
--- OUTSIDE RECORDS SUMMARY | 2024-07-18 14:29 | XMS_ITS | Encounter Summary ---
Author Organization [facility] [place] [address] Care Team Providers Care Gripper Installer Name Role Phone Maximilian Fall MD Primary Care Provider [phone] Reason for Visit * Reason Comments Medication Refill Encounter Details Date Type Department Care Team (Late st Contact Info) Description 09/03/2020 [place] [address] Dion Barlow MD [facility] [place] [address] Social History Tobacco Use Types Packs/Day Years [...] 9:00 AM EDT Office [place] [phone] Dion Barlow MD [facility] [place] [address] 09/01/2024 9:40 AM EDT Office Visit Cardiology at [address] [place] [address] Franky Shaver MD [facility] [place] [address] 09/01/2024 11:20 AM EDT Office Visit Dermatology at [facility] [address] [place] [address] Gómez Mercer MD [facility] DR EDDIE [place] [address] 09/21/2024 2:45 PM EDT Office Visit [place] [address] Trung Hoyos MD [facility] [place] [address] documented as of this encounter Visit Diagnoses Not on filedocumented in this encounter Care Teams Gripper Installer Relationship Specialty Start Date End Date Maximilian Fall MD [address] [facility] 1 [place] [address] PCP - General 10/01/11 02/13/21 documented as of this encounter
--- OUTSIDE RECORDS SUMMARY | 2024-07-18 14:29 | XMS_ITS | Encounter Summary ---
Author Organization [facility] [place] [address] Care Team Providers Care Ship Keeper Name Role Phone Maximilian Fall MD Primary Care Provider [phone] Reason for Visit * Reason Onset Date Comments Prior Authorization 05/10/2018 Encounter Details Date Type Department Care Team (Late st Contact Info) Description 05/10/2018 Telephone [place] [address] Jarret Roa diesel engine erector Social History Tobacco Use Types Packs/Day Years [...] x 4 weeks Insurance & Phone #: [email or web address] Part D ID #: [id number] Trialed (dosage, frequency): hydrocortisone enemas (causes nausea), sulfasalazine, canasa (caused pelvic pain), cortifoam (manufacturing shortage), Asacol, Rowasa, prednisone Diagnosis/ICD-10: 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 Notes: Submitted via CoverMyMeds Approved documented in this encounter Plan of Treatment Upcoming Encounters Date Type Department Care Team (Late st Contact Info) Description 08/15/2024 9:00 AM EDT Office Visit [place] [address] Dion Barlow MD [facility] [place] [address] 09/01/2024 9:40 AM EDT Office Visit Cardiology at [address] [phone] Franky Shaver MD [facility] [place] [address] 09/01/2024 11:20 AM EDT Office Visit Dermatology at [place] [address] [place] [phone] Gómez Mercer MD [facility] [place] [address] 09/21/2024 2:45 PM EDT Office Visit Pain [place] [address] Trung Hoyos MD [facility] [place] [address] documented as of this encounter Visit Diagnoses Not on filedocumented in this encounter Care Teams Ship Keeper Relationship Specialty Start Date End Date Maximilian Fall MD [address] [facility] 1 [place] [address] PCP - General 10/01/11 02/13/21 documented as of this encounter
--- OUTSIDE RECORDS SUMMARY | 2024-07-18 14:29 | XMS_ITS | Encounter Summary ---
Author Organization [facility] Address [facility] [place] [address] Care Team Providers Care Cab Starter Name Role Phone Maximilian Fall MD Primary Care Provider [phone] Encounter Details Date Type Department Care Team (Latest Contact Info) Description 04/28/2019 3:07 PM EDT - 04/28/2019 6:06 PM EDT Hospital Encounter [place] [address] Iza Coates MD [facility] [place] [address] Discharge Disposition: Home Social History Tobacco Use [...] Care Everywhere. * EGD (Upper Endoscopy): Post-op (Kosovan) documented in this encounter Medications at Time [...] sedation) Iza Coates MD Gastroenterology attending Pager [phone] documented in this encounter Plan of Treatment Upcoming Encounters Date Type Department Care Team (Late st Contact Info) Description 08/15/2024 9:00 AM EDT Office [place] [address] Dion Barlow MD [facility] [place] [address] 09/01/2024 9:40 AM EDT Office Visit Cardiology at [address] [place] [address] Franky Shaver MD [facility] [place] [address] 09/01/2024 11:20 AM EDT Office Visit Dermatology at [facility] [address] [place] [address] Gómez Mercer MD [facility] DR EDDIE [place] [address] 09/21/2024 2:45 PM EDT Office Visit Pain and Spine Center at [facility] [place] [address] Trung Hoyos MD [facility] [place] [address] documented as of this encounter Procedures Procedure [...] 5:03 PM EDT 04/28/2019 5:03 PM EDT [facility] LABORATORY - 04/28/2019 5:03 PM EDT Specimen requisition ordered. ??Separate Pathology report to follow Iza Coates MD PATHOLOGY/CYTOLOG Y ORDERABLES [facility] [place] [address] * Specimen to Pathology (04/28/2019 5:03 PM EDT) AP Specimen 04/28/2019 5:03 PM EDT 04/28/2019 5:03 PM EDT Narrative [facility] - 04/28/2019 5:03 PM EDT Specimen requisition ordered. ??Separate Pathology report to follow Iza Coates MD PATHOLOGY/CYTOLOG Y ORDERABLES Performing Organization Address [facility] Co de Phone Number [facility] [place] [address] * Surgical Pathology Report (04/28/2019 4:50 PM EDT) Final Diagnosis [id number] ? Location: 4T; EA10; A The signing pathologist has (i) examined the relevant preparation(s) for the specimen(s) and (ii) rendered or confirmed the diagnosis(es). . ?Surgical Pathology DIAGNOSIS A - Random duodenum, biopsy: Duodenal mucosa within normal limits, including preserved villous architecture. B - Fundic gland, polypectomy: Gastric fundic gland polyp. Electronically signed by: ??Joana Soler MD Verified: ??05/02/2019 ?Pathologist Performed at: ??-[facility] Dept. of Pathology, [place], [place] CLINICAL INFORMATION Specimen Submitted: A - [...] labeled B1. ??ejr 05/02/2019 4:02 PM EDT [facility] GI Biopsy 04/28/2019 4:50 PM EDT 04/28/2019 4:50 PM EDT GI Biopsy 04/28/2019 4:50 PM EDT 04/28/2019 4:50 PM EDT Iza Coates MD PATHOLOGY/CYTOLOG Y ORDERABLES [facility] [place] [address] * UPPER GI ENDOSCOPY (04/28/2019 4:39 PM EDT) UPPER GI ENDOSCOPY [facility] Endoscopy Procedure Date: 04/28/2019 4:39 PM ? Patient Name: Brian Rodriguez ? Date of : 1950 ? Age: 68 ? Order #: [id number] ? Instrument Name: [id number] ? Procedure: ? Upper GI endoscopy Indications: ? Abnormal CT of the GI tract (duodenal ? thickening) Providers: ? Iza Coates MD, Nohemi Ball, ? RN, Jonathan Ko, Enginehouse Brakeman Referring MD: ?Maximilian Fall MD Requesting Provider: [...] GENERAL SURGICAL ORD ERABLES Performing Organization Address City/[facility] Co de Phone Number [facility] * POCT Glucose (04/28/2019 3:46 PM EDT) Glucose, POC 91 65 - 199 mg/dL [facility] Comment: Supplemental ranges: <140 mg/dL before meals <180 mg/dL all other times of the day Blood specimen (specimen) 04/28/2019 3:46 PM EDT 04/28/2019 3:46 PM EDT Iza Coates MD POINT OF CARE KISHOR T ORDERABLES Performing Organization Address [facility] de Phone Number [facility] [place] [address] documented in this encounter Visit Diagnoses Not [...] RN) documented in this encounter Care Teams Cab Starter Relationship Specialty Start Date End Date Maximilian Fall MD [address] [place] [address] PCP - General 10/01/11 02/13/21 documented as of this encounter
--- OUTSIDE RECORDS SUMMARY | 2024-07-18 14:29 | XMS_ITS | Encounter Summary ---
Author Organization [facility] Address [facility] [place] [address] Care Team Providers Care Arc Welder Apprentice Name Role Phone Maximilian Fall MD Primary Care Provider [phone] Encounter Details Date Type Department Care Team (Latest Contact Info) Description 03/20/2020 10:00 AM EDT TH Visit (TeleHealth) [place] [address] [facility] [place] [address] Other ulcerative colitis with rectal bleeding Social [...] Overview Note: ?? Colonoscopy 04/08/10 (Dr. Gomes [facility]) - inflammation only within the rectum and sigmoid; extent of the exam was to the hepatic flexure; biopsies proximal to the sigmoid nl ?? Repeat exam 11/27/11 ([facility] [...] apparently recommended by his urology team and [facility]. He reports for a UTI (perhaps chronic [...] past surgical history that includes Colonoscopy, Diagnostic (50384) (11/27/2011); Sigmoidoscopy, Diagnostic (21073) (03/16/2012); Upper Gi Endoscopy, Exam (28998) (10/01/2012); Colonoscopy, Diagnostic (09441) (07/13/2014); Colonoscopy, Biopsy (86190) (N/A, 02/12/2017); Colonoscopy, Biopsy (09963) (N/A, 02/22/2019); Colonoscopy, Remv Lesn, Snare (44507) (N/A, 02/22/2019); and Upper GI Endoscopy, Diagnostic (92757) (N/A, 04/28/2019). Family History: family history is [...] Would check C. Diff and lactoferrin at [facility]. Also, will call if diarrhea does not [...] with patient on above. Dion OSULLIVAN MD [facility] [place] [address] documented in this encounter Plan of Treatment Upcoming Encounters Date Type Department Care Team (Late st Contact Info) Description 08/15/2024 9:00 AM EDT Office [place] [address] [facility] [place] [address] 09/01/2024 9:40 AM EDT Office Visit Cardiology at [address] [place] [address] [facility] [place] [address] 09/01/2024 11:20 AM EDT Office Visit Dermatology at [facility] [address] [place] [address] Gómez Mercer MD [facility] [address] 09/21/2024 2:45 PM EDT Office Visit [place] [address] [facility] [place] [address] documented as of this encounter Visit Diagnoses Diagnosis Other ulcerative colitis with rectal bleeding documented in this encounter Care Teams Arc Welder Apprentice Relationship Specialty Start Date End Date Maximilian Fall MD [address] [facility] 1 [place] [address] PCP - General 10/01/11 02/13/21 documented as of this encounter
--- OUTSIDE RECORDS SUMMARY | 2024-07-18 14:29 | XMS_ITS | Encounter Summary ---
Author Organization [facility] [place] [address] Care Team Providers Care Library Media Specialist Name Role Phone Maximilian Fall MD Primary Care Provider [phone] Reason for Visit * Reason Onset Date Comments Medication Refill 06/27/2019 Encounter Details Date Type Department Care Team (Late st Contact Info) Description 06/27/2019 Ref[place] [address] Sophia Coleman, CCMA Social History Tobacco Use [...] 9:00 AM EDT Office [place] [address] Dion Barlow MD [facility] [place] [address] 09/01/2024 9:40 AM EDT Office Visit Cardiology at [address] [address] Franky Shaver MD [facility] [place] [address] 09/01/2024 11:20 AM EDT Office Visit Dermatology at [facility] [address] [place] [address] Gómez Mercer MD [facility] DR EDD[place] [address] 09/21/2024 2:45 PM EDT Office Visit Pain and Spine Center at [facility] [place] [address] Trung Hoyos MD [facility] [place] [address] documented as of this encounter Visit Diagnoses Not on filedocumented in this encounter Care Teams Library Media Specialist Relationship Specialty Start Date End Date Maximilian Fall MD [address] [place] [address] PCP - General 10/01/11 02/13/21 documented as of this encounter
--- OUTSIDE RECORDS SUMMARY | 2024-07-18 14:29 | XMS_ITS | Encounter Summary ---
Author Organization [facility] [place] [address] Care Team Providers Care Wedding Designer Name Role Phone Maximilian Fall MD Primary Care Provider [phone] Reason for Visit * Reason Onset Date Comments Medication Refill 12/11/2020 Encounter Details Date Type Department Care Team (Late st Contact Info) Description 12/11/2020 Refill [place] [address] Dion Barlow MD [facility] [place] [address] Left sided colitis without complications Social History [...] EDT Office Visit [place] [address] Dion Barlow MD [facility] [place] [address] 09/01/2024 9:40 AM EDT Office Visit Cardiology at [address] [place] [address] Franky Shaver MD [facility] [place] [address] 09/01/2024 11:20 AM EDT Office Visit Dermatology at [facility] [address] [place] [address] Gómez Mercer MD [facility] [place] [address] 09/21/2024 2:45 PM EDT Office Visit [facility] [place] [address] Trnug Hoyos MD [facility] [place] [address] documented as of this encounter Visit Diagnoses Diagnosis Left sided colitis without complications Left sided ulcerative (chronic) colitis documented in this encounter Care Teams Wedding Designer Relationship Specialty Start Date End Date Maximilian Fall MD [address] [facility] 1 [place] [address] PCP - General 10/01/11 02/13/21 documented as of this encounter
--- OUTSIDE RECORDS SUMMARY | 2024-07-18 14:29 | XMS_ITS | Encounter Summary ---
Author Organization [facility] [place] [address] Care Team Providers Care Window Sash Installer Name Role Phone Maximilian Fall MD Primary Care Provider [phone] Encounter Details Date Type Department Care Team (Late st Contact Info) Description 03/07/2019 Ancillary Procedure [place] [address] Dion Barlow MD [facility] [place] [address] Social History Tobacco Use Types Packs/Day Years [...] 9:00 AM EDT Office [place] [address] Dion Barlow MD [facility] [place] [address] 09/01/2024 9:40 AM EDT Office Visit Cardiology at [address] [place] [address] Franky Shaver MD [facility] [place] [address] 09/01/2024 11:20 AM EDT Office Visit Dermatology at [facility] [address] [place] [address] Gómez Mercer MD [facility] DR [place] [address] 09/21/2024 2:45 PM EDT Office Visit [facility] [place] [address] Trung Hoyos MD [facility] [place] [address] documented as of this encounter Procedures Procedure Name Priority Date/Time Associated Diagnosis Comments FILM LIBRARY STORAGE ONLY CT ABDOMEN AND PELVIS Routine 03/07/2019 12:00 AM EDT documented in this encounter Results * Film Library- Storage Only CT Abdomen & Pelvis (03/07/2019 12:00 AM EDT) Narrative [facility] - 04/27/2019 3:15 AM EDT This exam is auto-finalizing. It's purpose is for storage only. L Karthik Barlow MD IMG FILM LIBRARY ORD ERABLES [place], [place] documented in this encounter Visit Diagnoses Not on filedocumented in this encounter Care Teams Window Sash Installer Relationship Specialty Start Date End Date Maximilian Fall MD [address] [place] [address] PCP - General 10/01/11 02/13/21 documented as of this encounter
--- OUTSIDE RECORDS SUMMARY | 2024-07-18 14:29 | XMS_ITS | Encounter Summary ---
Author Organization [facility] Address [facility] [place] [address] Care Team Providers Care Metal Loader Name Role Phone Maximilian Fall MD Primary Care Provider [phone] Encounter Details Date Type Department Care Team (Latest Contact Info) Description 05/09/2019 10:20 AM EDT Office [place] [address] Dion Barlow MD [facility] [place] [address] Left sided colitis without complications Social History [...] ? Overview Note:? Colonoscopy 04/08/10 (Dr. Gomes [facility]) - [...] needed 20 min of this 25 min [id number] visit was spent counseling the patient in the issues outlined above. Davina Barlow MD Signal Tower Directorsparker and patcher Co-Director, [facility] Section of Gastroenterology [place] [address] documented in this encounter Plan of Treatment Upcoming Encounters Date Type Department Care Team (Late st Contact Info) Description 08/15/2024 9:00 AM EDT Office [place] [address] Dion Barlow MD [facility] [place] [address] 09/01/2024 9:40 AM EDT Office Visit Cardiology at [address] [place] [address] Franky Shaver MD [facility] [place] [address] 09/01/2024 11:20 AM EDT Office Visit Dermatology at [facility] [address] [place] [address] Gómez Mercer MD [facility] [place] [address] 09/21/2024 2:45 PM EDT Office Visit Pain and Spine Center at [facility] [place] [address] Trung Hoyos MD [facility] [place] [address] documented as of this encounter Visit Diagnoses Diagnosis Left sided colitis without complications Left sided ulcerative (chronic) colitis documented in this encounter Care Teams Metal Loader Relationship Specialty Start Date End Date Maximilian Fall MD [address] [facility] 1 [place] [address] PCP - General 10/01/11 02/13/21 documented as of this encounter
--- OUTSIDE RECORDS SUMMARY | 2024-07-18 14:29 | XMS_ITS | Encounter Summary ---
Author Organization [facility] [place] [address] Care Team Providers Care Weight Loss Consultant Name Role Phone Maximilian Fall MD Primary Care Provider [phone] Reason for Visit * Reason Onset Date Comments Reminder Appointment 03/20/2020 Encounter Details Date Type Department Care Team (Late st Contact Info) Description 03/20/2020 Telephone [place] [address] Kinjal Durham CMA GASTROENTEROLOGY DEPT Reminder Appointment [...] EDT Office [place] [address] Dion Barlow MD [facility] [place] [address] 09/01/2024 9:40 AM EDT Office Visit Cardiology at [address] [place] [address] Franky Shaver MD [facility] [place] [address] 09/01/2024 11:20 AM EDT Office Visit Dermatology at [facility] [address] [place] [address] Gómez Mercer MD [facility] [place] [place] [address] 09/21/2024 2:45 PM EDT Office Visit [place] [address] Trung Hoyos MD [facility] [address] documented as of this encounter Visit Diagnoses Not on filedocumented in this encounter Care Teams Weight Loss Consultant Relationship Specialty Start Date End Date Maximilian Fall MD [address] [facility] 1 [place] [address] PCP - General 10/01/11 02/13/21 documented as of this encounter
--- OUTSIDE RECORDS SUMMARY | 2024-07-18 14:29 | XMS_ITS | Encounter Summary ---
[place] [address] Care Team Providers Care Independent Distributor Name Role Phone Maximilian Fall MD Primary Care Provider [phone] Encounter Details Date Type Department Care Team (Late st Contact Info) Description 01/17/2021 Telephone [place] [address] César Garcia Social History Tobacco Use Types [...] - 01/17/2021 1:33 PM EST Brian Rodriguez [id number] Diagnosis/Indication: a repeat colonoscopy in two years [...] 9:00 AM EDT Office Visit [place] [address] Dion Barlow MD [facility] [place] [address] 09/01/2024 9:40 AM EDT Office Visit Cardiology at [address] [phone] Franky Shaver MD [facility] [place] [address] 09/01/2024 11:20 AM EDT Office Visit Dermatology at [place] [address] [place] [address] Gómez Mercer MD [facility] DR EDD[place] [address] 09/21/2024 2:45 PM EDT Office Visit Pain and Spine Center at [facility] [place] [address] Trung Hoyos MD [facility] [place] [address] documented as of this encounter Visit Diagnoses Not on filedocumented in this encounter Care Teams Independent Distributor Relationship Specialty Start Date End Date Maximilian Fall MD [address] [place] [address] PCP - General 10/01/11 02/13/21 documented as of this encounter
--- OUTSIDE RECORDS SUMMARY | 2024-07-18 14:29 | XMS_ITS | Encounter Summary ---
Author Organization [facility] [place] [address] Care Team Providers Care Nurse Anesthetist Name Role Phone Maximilian Fall MD Primary Care Provider Reason for Visit * Reason Onset Date Comments Medication Refill 03/12/2018 Encounter Details Date Type Department Care Team (Late st Contact Info) Description 03/12/2018 Ref[place] [address] Bethany Trivedi, RN Pain in right hip; [...] EDT Office [place] [address] Dion Barlow MD [facility] [place] [address] 09/01/2024 9:40 AM EDT Office Visit Cardiology at [address] [place] [address] Franky Shaver MD [facility] [place] [address] 09/01/2024 11:20 AM EDT Office Visit Dermatology at [facility] [address] [place] [address] Gómez Mercer MD [facility] DR EDDIE [place] [address] 09/21/2024 2:45 PM EDT Office Visit [place] [address] Trung Hoyos MD [facility] [place] [address] documented as of this encounter Visit Diagnoses Diagnosis Pain in right hip Pain in joint, pelvic region and thigh Chronic ulcerative enterocolitis, unspecified complication documented in this encounter Care Teams Nurse Anesthetist Relationship Specialty Start Date End Date Maximilian Fall MD [address] [place] [address] PCP - General 10/01/11 02/13/21 documented as of this encounter
--- OUTSIDE RECORDS SUMMARY | 2024-07-18 14:29 | XMS_ITS | Encounter Summary ---
Author Organization [facility] Address [facility] [address] Care Team Providers Care Catering Administrative Assistant Name Role Phone Maximilian Fall MD Primary Care Provider [phone] Encounter Details Date Type Department Care Team (Late st Contact Info) Description 02/11/2019 Telephone [place] [address] Rachel Corral Social History Tobacco Use Types [...] - 02/11/2019 10:16 AM EDT Brian Rodriguez [id number] Diagnosis: [place] 1. Have you ever had a colonoscopy before? [x] YES [] NO If Yes, Date of Last [place]:_02/12/17 If yes, did you have any problems with the procedure? [] YES [x] NO Explain: What type of sedation was used: IV 2. Do you take any Blood Thinners? [] YES [x] NO If Yes, type: 3. Do you have a Pacemaker or Defibrillator device? [] YES [x] NO If Yes send DooBop message to [facility] END[facility] DEVICE CHECK 4. Are you a [...] 9:00 AM EDT Office Visit [place] [address] Dion Barlow MD [facility] [place] [address] 09/01/2024 9:40 AM EDT Office Visit Cardiology at [address] [place] [phone] Franky Shaver MD [facility] [place] [address] 09/01/2024 11:20 AM EDT Office Visit Dermatology at [place] [address] [place] [address] Gómez Mercer MD [facility] [place] [address] 09/21/2024 2:45 PM EDT Office Visit Pain [place] [address] Trung Hoyos MD [facility] [place] [address] documented as of this encounter Visit Diagnoses Not on filedocumented in this encounter Care Teams Catering Administrative Assistant Relationship Specialty Start Date End Date Maximilian Fall MD [address] [place] [address] PCP - General 10/01/11 02/13/21 documented as of this encounter
--- OUTSIDE RECORDS SUMMARY | 2024-07-18 14:29 | XMS_ITS | Encounter Summary ---
Author Organization [facility] Address [facility] [place] [address] Care Team Providers Care Small Business Sales Representative Name Role Phone Maximilian Fall MD Primary Care Provider [phone] Encounter Details Date Type Department Care Team (Late st Contact Info) Description 02/23/2019 Telephone [place] [address] Suzanne Guillermo Social History Tobacco [...] 9:00 AM EDT Office [place] [address] Dion Barlow MD [facility] [place] [address] 09/01/2024 9:40 AM EDT Office Visit Cardiology at [address] [place] [address] Franky Shaver MD [facility] [place] [place] [address] 09/01/2024 11:20 AM EDT Office Visit Dermatology at [facility] [address] [place] [address] Gómez Mercer MD [facility] [place] [address] 09/21/2024 2:45 PM EDT Office Visit Pain and Spine Center at [facility] [place] [address] Trung Hoyos MD [facility] [place] [address] documented as of this encounter Visit Diagnoses Not on filedocumented in this encounter Care Teams Small Business Sales Representative Relationship Specialty Start Date End Date Maximilian Fall MD [address] [facility] 1 [place] [address] PCP - General 10/01/11 02/13/21 documented as of this encounter
--- OUTSIDE RECORDS SUMMARY | 2024-07-18 14:29 | XMS_ITS | Encounter Summary ---
Author Organization [facility] Address [facility] [place] [address] Care Team Providers Care Photography Intern Name Role Phone Maximilian Fall MD Primary Care Provider [phone] Encounter Details Date Type Department Care Team (Latest Contact Info) Description 11/02/2018 1:00 PM EST Office [place] [address] Marcelle Weinberg APRN [facility] [place] [address] Left sided colitis without complications Social History [...] the sigmoid nl ?? Repeat exam 11/27/11 ([facility] mildly active colitis in the sigmoid colon [...] to follow-up ulcerative colitis. Last seen Dr. Ousllivan 04/2018. Currently on sulfasalazine 4 tabs twice daily and folic acid 1 tab daily; Took Uceris enema , off for about 4 weeks now. He has been doing well until he underwent left inguinal hernia repair at [facility] 2 weeks ago. Once [...] 3.66) performed by Dion Osullivan MD at [facility] ENDOSCOPY ??? PRO COLONOSCOPY, DIAGNOSTIC 11/27/2011 COLONOSCOPY, DIAGNOSTIC performed by Dion OSULLIVAN at [facility] ENDOSCOPY ??? PRO COLONOSCOPY, DIAGNOSTIC 07/13/2014 COLONOSCOPY, DIAGNOSTIC performed by Dion Osullivan MD at [facility] ENDOSCOPY ??? PRO SIGMOIDOSCOPY, DIAGNOSTIC 03/16/2012 FLEXIBLE SIGMOIDOSCOPY performed by YUDI MALLOY at [facility] ENDOSCOPY ??? UPPER GI ENDOSCOPY, EXAM 10/01/2012 UPPER GI ENDOSCOPY performed by Dion OSULLIVAN at [facility] ENDOSCOPY Social History Socioeconomic History [...] 9:00 AM EDT Office [place] [address] Dion Osullivan MD [facility] [place] [address] 09/01/2024 9:40 AM EDT Office Visit Cardiology at [address] [place] [address] Franky Shaver MD [facility] [place] [address] 09/01/2024 11:20 AM EDT Office Visit Dermatology at [facility] [address] [place] [address] Gómez Mercer MD [facility] [place] [address] 09/21/2024 2:45 PM EDT Office Visit [place] [address] Trung Hoyos MD [facility] [place] [address] documented as of this encounter Procedures Procedure [...] Differential, Automated (11/02/2018 2:35 PM EST) Pathologist [facility] Neutrophil % 61.6 % [facility] Neutrophil Absolute 4.08 1.70 - 6.10 x10(3)/[facility] LABORAT[facility] Lymph % 27.2 % [facility] Lymphocytes Abs 1.8 0.9 - 3.2 x10(3)/[facility] LABORATORY Monocyte % 6.9 % [facility] Monocyte Abs 0.5 0.3 - 0.9 x10(3)/[facility] LABORATORY Eos % 2.9 % [facility] Eosinophils Abs 0.2 0.0 - 0.4 x10(3)/[facility] LABORATORY Basophil % 0.8 % [facility] Baso Absolute 0.0 0.0 - 0.1 x10(3)/[facility] LABORATORY Immature Gran % 0.60 % [facility] Comment: Immature granulocytes(IG's)percentage and absolute count will include metamyelocytes, myelocytes, and promyelocytes. Blood smears from CBCs yielding IG's will be scanned manually for concordance. If this scan disagrees with the automated IG or if promyelocytes are noted, a manual differential will be performed. Immature Gran Absolute 0.04 0.00 - 0.04 x10(3)/[facility] LABORATORY Blood specimen (specimen) 11/02/2018 2:35 PM EST 11/02/2018 2:42 PM EST Narrative Resulting Agency Comment Spec In Lab Marcelle Weinberg DAMPENER HEMATOLOGY ORDERA BLES [facility] [place] [address] * (ABNORMAL) Hemogram (11/02/2018 2:35 PM EST) Pathologist [facility] White Blood Cell 6.6 4.0 - 9.5 x10(3)/[facility] LABORATORY Red Blood Cell 4.08(L) 4.58 - 5.54 x10(6)/mc L [facility] Hemoglobin 13.1(L) 13.7 - 16.5 gm/dL [facility] Hematocrit 40.0(L) 40.5 - 48.5 % [facility] Mean Cell Volume 98.0(H) 82.9 - 93.[address] [facility] Mean Cell Hemoglobin 32.1 27.5 - 32.[address] [facility] Mean Cell Hemoglobin Concentration 32.8 32.0 - 35.7 gm/dL [facility] Platelet 236 145 - 357 x10(3)/[facility] LABORATORY RDW Standard Deviation 44.3 36.0 - [address].0 [facility]ORAT[facility] RDW coefficient of variation 12.3 11.4 - 13.8 % [facility] Mean Platelet Volume 10.6 7.6 - 12.9 [facility] LABORATORY NRBC% auto 0.0 % [facility] NRBC Absolute 0.000 0.000 - 0.000 x10(3)/[facility] LABORATORY Blood specimen (specimen) 11/02/2018 2:35 PM EST 11/02/2018 2:42 PM EST Narrative Resulting Agency Comment Spec In Lab Marcelle Weinberg DAMPENER HEMATOLOGY ORDERA BLES [facility] [place] [address] * (ABNORMAL) CRP, acute inflammation (11/02/2018 2:35 PM EST) [facility] C-Reactive Protein 5.0(H) <=4.9 mg/L [facility] Blood specimen (specimen) 11/02/2018 2:35 PM EST 11/02/2018 2:42 PM EST Narrative Resulting Agency Comment Spec In Lab Marcelle Weinberg DAMPENER CHEMISTRY ORDERAB LES Performing Organization Address City/[facility]/ZIP Co de Phone Number [facility] [place] [address] * (ABNORMAL) Sedimentation rate (11/02/2018 2:35 PM EST) Sedimentation Rate Automated 27(H) 0 - 15 mm/hr [facility] Blood specimen (specimen) 11/02/2018 2:35 PM EST 11/02/2018 2:42 PM EST Narrative Resulting Agency Comment Spec In Lab Marcelle Weinberg DAMPENER HEMATOLOGY ORDERA BLES Performing Organization Address [facility] Co de Phone Number [facility] [place] [address] * (ABNORMAL) Comprehensive metabolic panel (non-fasting) (11/02/2018 2:35 PM EST) Glucose 87 65 - 199 mg/dL [facility] Comment:Diabetes: >=200 mg/d L plus symptoms Blood Urea Nitrogen 15 10 - 20 mg/dL [facility] Creatinine 1.03 0.80 - 1.50 mg/dL [facility] Sodium 140 135 - 145 mmol/L [facility] Potassium 4.3 3.5 - 5.0 mmol/L [facility] Comment: Please note: ??Patients with WBC >100,000 may have falsely elevated Potassium levels. ??For accurate Potassium quantification in these patients send serum separator tube (gold top) for subsequent determinations. ??Contact the Clinical Chemistry Laboratory if there are any questions. Chloride 103 98 - 107 mmol/L [facility] Carbon Dioxide 26 22 - 31 mmol/L [facility] Anion Gap 11 5 - 15 mmol/L [facility] Calcium 9.7 8.5 - 10.5 mg/dL [facility] Protein, Total 8.1(H) 6.1 - 8.0 gm/dL [facility] Albumin 4.0 3.2 - 5.2 gm/dL [facility] Aspartate Aminotransferase 12 0 - 39 unit/L [facility] Alanine Aminotransferase 14 0 - 55 unit/L [facility] Alkaline Phosphatase 73 40 - 120 unit/L [facility] Bilirubin, Total 0.4 0.2 - 1.3 mg/dL [facility] Est Glomerular Filtration Rate 73 >=60 mL/min/1. 73 m?? [facility] Comment: The eGFR was calculated using the CKD-EPI equation. As with all creatinine based estimates of kidney function, eGFR values calculated with the CKD-EPI equation are not accurate in patients with acute kidney failure, extremes of body mass or the acutely ill. http://[employer]/[facility] eGFR 85 >=60 mL/min/1. 73 m?? [facility] Comment: The eGFR was calculated using the CKD-EPI equation. As with all creatinine based estimates of kidney function, eGFR values calculated with the CKD-EPI equation are not accurate in patients with acute kidney failure, extremes of body mass or the acutely ill. http://[employer]/[facility] Blood specimen (specimen) 11/02/2018 2:35 PM EST 11/02/2018 2:42 PM EST Narrative Resulting Agency Comment Spec In Lab Marcelle Weinberg DAMPENER CHEMISTRY ORDERAB LES [facility] [place] [address] documented in this encounter Visit Diagnoses Diagnosis Left sided colitis without complications Left sided ulcerative (chronic) colitis documented in this encounter Care Teams Photography Intern Relationship Specialty Start Date End Date Maximilian Fall MD [address] [place] [address] PCP - General 10/01/11 02/13/21 documented as of this encounter
--- OUTSIDE RECORDS SUMMARY | 2024-07-18 14:29 | XMS_ITS | Encounter Summary ---
Author Organization [facility] [place] [address] Care Team Providers Care Counter Supply Worker Name Role Phone Maximilian Fall MD Primary Care Provider [phone] Encounter Details Date Type Department Care Team (Late st Contact Info) Description 11/02/2018 Telephone [place] [address] Marcelle Weinberg, [employer] BI CONSULTANT [facility] [place] [address] Social History Tobacco Use Types Packs/Day Years [...] Notes * Telephone Encounter - Marcelle Weinberg, [employer]OS[employer] BI CONSULTANT - 11/02/2018 5:27 PM EST I called [...] 9:00 AM EDT Office Visit [place] [address] Dion Barlow MD [facility] [address] 09/01/2024 9:40 AM EDT Office Visit Cardiology at [address] [address] Franky Shaver MD [facility] [place] [address] 09/01/2024 11:20 AM EDT Office Visit Dermatology at [facility] [address] [place] [address] Gómez Mercer MD [facility] [place] [address] 09/21/2024 2:45 PM EDT Office Visit [facility] [place] [address] Trung Hoyos MD [facility] [place] [address] documented as of this encounter Visit Diagnoses Not on filedocumented in this encounter Care Teams Counter Supply Worker Relationship Specialty Start Date End Date Maximilian Fall MD [address] [place] [address] PCP - General 10/01/11 02/13/21 documented as of this encounter
--- OUTSIDE RECORDS SUMMARY | 2024-07-18 14:29 | XMS_ITS | Encounter Summary ---
Author Organization [facility] [place] [address] Care Team Providers Care Door Clamper Name Role Phone Maximilian Fall MD Primary Care Provider [phone] Reason for Visit * Reason Onset Date Comments Medication Refill 02/16/2020 Encounter Details Date Type Department Care Team (Late st Contact Info) Description 02/16/2020 Refill [place] [address] Bethany Trivedi, RN Left sided colitis without [...] 9:00 AM EDT Office Visit [place] [address] Dion Barlow MD [facility] [place] [address] 09/01/2024 9:40 AM EDT Office Visit Cardiology at [address] [place] [address] Franky Shaver MD [facility] [place] [address] 09/01/2024 11:20 AM EDT Office Visit Dermatology at [address] [place] [address] Gómez Mercer MD [facility] DR EDD[place] [address] 09/21/2024 2:45 PM EDT Office Visit [facility] [place] [address] Trung Hoyos MD [facility] [place] [address] documented as of this encounter Visit Diagnoses Diagnosis Left sided colitis without complications Left sided ulcerative (chronic) colitis documented in this encounter Care Teams Door Clamper Relationship Specialty Start Date End Date Maximilian Fall MD [address] [place] [address] PCP - General 10/01/11 02/13/21 documented as of this encounter
--- OUTSIDE RECORDS SUMMARY | 2024-07-18 14:29 | XMS_ITS | Encounter Summary ---
Author Organization Formerly [facility] [place] [address] Care Team Providers Care Nurse Practitioner Physician Assistant Name Role Phone Maximilian Fall MD Primary Care Provider [phone] Encounter Details Date Type Department Care Team (Late st Contact Info) Description 04/26/2019 Ancillary Procedure [place] [phone] Dion Barlow MD [facility] [place] [address] Social History Tobacco Use Types Packs/Day Years [...] 9:00 AM EDT Office [place] [phone] Dion Barlow MD [facility] [place] [address] 09/01/2024 9:40 AM EDT Office Visit Cardiology at [address] [place] [address] Franky Shaver MD [facility] [place] [address] 09/01/2024 11:20 AM EDT Office Visit Dermatology at [facility] [address] [place] [phone] Gómez Mercer MD [facility] DR EDDIE [place] [address] 09/21/2024 2:45 PM EDT Office Visit [place] [address] Trung Hoyos MD [facility] [place] [address] documented as of this encounter Procedures Procedure Name Priority Date/Time Associated Diagnosis Comments FILM LIBRARY STORAGE ONLY CT ABDOMEN AND PELVIS Routine 04/26/2019 12:00 AM EDT documented in this encounter Results * Film Library- Storage Only CT Abdomen & Pelvis (04/26/2019 12:00 AM EDT) Narrative [facility] - 04/27/2019 3:22 AM EDT This exam is auto-finalizing. It's purpose is for storage only. L Karthik Barlow MD IMG FILM LIBRARY ORD ERABLES [place], [place] documented in this encounter Visit Diagnoses Not on filedocumented in this encounter Care Teams Nurse Practitioner Physician Assistant Relationship Specialty Start Date End Date Maximilian Fall MD [address] [place] [address] PCP - General 10/01/11 02/13/21 documented as of this encounter
--- OUTSIDE RECORDS SUMMARY | 2024-07-18 14:30 | XMS_ITS | Encounter Summary ---
Author Organization [facility] Address [facility] [place] [address] Care Team Providers Care Stereo Equipment Installer Name Role Phone Maximilian Fall MD Primary Care Provider [phone] Encounter Details Date Type Department Care Team (Latest Contact Info) Description 11/06/2015 11:18 AM EST - 11/06/2015 11:59 PM [facility] Hospital Encounter XRay at [address] [place] [address] Dion Barlow MD [facility] [place] [address] Pain in right hip; Bilateral low back [...] 9:00 AM EDT Office [place] [address] Dion Barlow MD [facility] [place] [address] 09/01/2024 9:40 AM EDT Office Visit Cardiology at [address] [phone] Franky Shaver MD [facility] [place] [address] 09/01/2024 11:20 AM EDT Office Visit Dermatology at [facility] [address] [place] [address] Gómez Mercer MD [facility] DR EDDIE [place] [address] 09/21/2024 2:45 PM EDT Office Visit Pain and Spine Center at [facility] [address] Trung Hoyos MD [facility] [place] [address] documented as of this encounter Procedures Procedure [...] complication documented in this encounter Care Teams Stereo Equipment Installer Relationship Specialty Start Date End Date Maximilian Fall MD [address] [place] [address] PCP - General 10/01/11 02/13/21 documented as of this encounter
--- OUTSIDE RECORDS SUMMARY | 2024-07-18 14:30 | XMS_ITS | Encounter Summary ---
[place] [address] Care Team Providers Care Antenna Engineer Name Role Phone Maximilian Fall MD Primary Care Provider [phone] Encounter Details Date Type Department Care Team (Late st Contact Info) Description 03/21/2016 - 03/21/2016 11:59 PM EDT Hospital Encounter [place] [address] Dr Thomas Temporary Pain Discharge Disposition: Home [...] 9:00 AM EDT Office [place] [phone] Dion Barlow MD [facility] [place] [place] [address] 09/01/2024 9:40 AM EDT Office Visit Cardiology at [address] [phone] Franky Shaver MD [facility] [place] [address] 09/01/2024 11:20 AM EDT Office Visit Dermatology at [address] [phone] Gómez Mercer MD [facility] DR EDD[place] [address] 09/21/2024 2:45 PM EDT Office Visit [facility] [place] [phone] Trung Hoyos MD [facility] [place] [address] documented as of this encounter Procedures Procedure Name Priority Date/Time Associated Diagnosis Comments FILM LIBRARY STORAGE ONLY CT ABDOMEN AND PELVIS Routine 03/21/2016 12:00 AM EDT Pain documented in this encounter Results * Film Library- Storage Only CT Abdomen & Pelvis (03/21/2016 12:00 AM EDT) Narrative [facility] - 03/21/2016 7:24 PM EDT This exam is for storage only and is auto-finalizing. Dr Leiva [facility] FILM LIBRARY ORD ERABLES [place], [place] documented in this encounter Visit Diagnoses Diagnosis Pain Generalized pain documented in this encounter Care Teams Antenna Engineer Relationship Specialty Start Date End Date Maximilian Fall MD [address] [place] [address] PCP - General 10/01/11 02/13/21 documented as of this encounter
--- OUTSIDE RECORDS SUMMARY | 2024-07-18 14:30 | XMS_ITS | Encounter Summary ---
Author Organization Formerly [facility] [place] [address] Care Team Providers Care Consultant Name Role Phone Maximilian Fall MD Primary Care Provider [phone] Reason for Visit * Reason Onset Date Comments Medication Refill 02/18/2017 Encounter Details Date Type Department Care Team (Late st Contact Info) Description 02/18/2017 Refill [place] [address] Bethany Trivedi, RN Pain in right hip; [...] 9:00 AM EDT Office Visit [place] [phone] Dion Barlow MD [facility] [place] [address] 09/01/2024 9:40 AM EDT Office Visit Cardiology at [address] [place] [phone] Franky Shaver MD [facility] [place] [address] 09/01/2024 11:20 AM EDT Office Visit Dermatology at [facility] [address] [place] [phone] Gómez Mercer MD [facility] [place] [address] 09/21/2024 2:45 PM EDT Office Visit [facility] [place] [phone] Trung Hoyos MD [facility] [place] [address] documented as of this encounter Visit Diagnoses Diagnosis Pain in right hip Pain in joint, pelvic region and thigh Chronic ulcerative enterocolitis, unspecified complication documented in this encounter Care Teams Consultant Relationship Specialty Start Date End Date Maximilian Fall MD [address] [place] [address] PCP - General 10/01/11 02/13/21 documented as of this encounter
--- OUTSIDE RECORDS SUMMARY | 2024-07-18 14:30 | XMS_ITS | Encounter Summary ---
[place] [address] Care Team Providers Care Edger Tailer Name Role Phone Maximilian Fall MD Primary Care Provider Encounter Details Date Type Department Care Team (Late st Contact Info) Description 03/13/2016 - 03/13/2016 11:59 PM EDT Hospital Encounter [place] [address] [address] Thomas Temporary Pain Discharge Disposition: Home [...] 9:00 AM EDT Office [place] [phone] Dion Barlow MD [facility] [place] [address] 09/01/2024 9:40 AM EDT Office Visit Cardiology at [address] [phone] Franky Shaver MD [facility] [place] [address] 09/01/2024 11:20 AM EDT Office Visit Dermatology at [address] [phone] Gómez Mercer MD [facility] DR EDDIE SANC[place] [address] 09/21/2024 2:45 PM EDT Office Visit [place] [phone] Trung Hoyos MD [facility] [place] [address] documented as of this encounter Procedures Procedure Name Priority Date/Time Associated Diagnosis Comments FILM LIBRARY STORAGE ONLY CT ABDOMEN AND PELVIS Routine 03/13/2016 12:00 AM EDT Pain documented in this encounter Results * Film Library- Storage Only CT Abdomen & Pelvis (03/13/2016 12:00 AM EDT) Narrative [facility] - 03/22/2016 8:20 AM EDT This exam is for storage only and is auto-finalizing. Dr Leiva [facility] FILM LIBRARY ORD ERABLES [place], [place] documented in this encounter Visit Diagnoses Diagnosis Pain Generalized pain documented in this encounter Care Teams Edger Tailer Relationship Specialty Start Date End Date Maximilian Fall MD [address] [place] [address] PCP - General 10/01/11 02/13/21 documented as of this encounter
--- OUTSIDE RECORDS SUMMARY | 2024-07-18 14:30 | XMS_ITS | Encounter Summary ---
Author Organization [facility] Address [facility] [place] [address] Care Team Providers Care Military Science Instructor Name Role Phone Maximilian Fall MD Primary Care Provider [phone] Reason for Visit * Reason Comments Follow-up Encounter Details Date Type Department Care Team (Late st Contact Info) Description 05/11/2017 4:00 PM EDT Office [place] [address] Marcelle Weinberg, JAZMINE [facility] [place] [address] Ulcerative colitis without complications, unspecified location Social [...] Overview Note: ? Colonoscopy 04/08/10 (Dr. Gomes [facility]) - [...] 3.66) performed by Dion Osullivan MD at [facility] ENDOSCOPY ??? PRO COLONOSCOPY, DIAGNOSTIC 11/27/2011 COLONOSCOPY, DIAGNOSTIC performed by Dion OSULLIVAN at [facility] ENDOSCOPY ??? PRO COLONOSCOPY, DIAGNOSTIC 07/13/2014 COLONOSCOPY, DIAGNOSTIC performed by Dion Osullivan MD at [facility] ENDOSCOPY ??? PRO SIGMOIDOSCOPY, DIAGNOSTIC 03/16/2012 FLEXIBLE SIGMOIDOSCOPY performed by YUDI MALLOY at [facility] ENDOSCOPY ??? UPPER GI ENDOSCOPY, EXAM 10/01/2012 UPPER GI ENDOSCOPY performed by Dion OSULLIVAN at [facility] Social History Social History ??? [...] 1140 ?? Resulting lab: [facility] ?? Value: [facility] Endoscopy Procedure Date: 02/12/2017 11:40 AM ? Patient Name: Brian Rodriguez ? Date of : 1950 ? Age: 66 ? Order #: [id number] ? Instrument Name: [id number] ? Procedure: ? Colonoscopy Indications: ? High risk colon cancer surveillance: ?Ulcerative colitis Patient Profile: ? This is a 66 year old male. This ?patient has left-sided ulcerative ?colitis on sulfasalazine and ?Cortifoam and is experiencing mild ?symptoms. Providers: ? L. Karthik Osullivan MD, Vandana Love ?RONY Mckeon, Sonal Segura, ?Bow Making Machine Operator Referring MD: ?Maximilian Fall MD [...] ?bowel preparation was evaluated using ?the BBPS ([place] Bowel Preparation ?Scale) with scores of: Right [...] 9:00 AM EDT Office [place] [address] Dion Osullivan MD [facility] [place] [address] 09/01/2024 9:40 AM EDT Office Visit Cardiology at [address] [phone] Franky Shaver MD [facility] [place] [address] 09/01/2024 11:20 AM EDT Office Visit Dermatology at [facility] [address] [place] [address] Gómez Mercer MD [facility] DR [place] [address] 09/21/2024 2:45 PM EDT Office Visit Pain and Spine Center at [facility] [phone] Trung Hoyos MD [facility] [place] [address] documented as of this encounter Procedures Procedure [...] 4:21 PM EDT) Neutrophil % 63.1 % [facility] Neutrophil Absolute 4.76 1.70 - 6.10 x10(3)/[facility] Lymph % 25.0 % [facility] Lymphocytes Abs 1.9 0.9 - 3.2 x10(3)/[facility] Monocyte % 7.6 % [facility] Monocyte Abs 0.6 0.3 - 0.9 x10(3)/[facility] Eos % 3.2 % [facility] Eosinophils Abs 0.2 0.0 - 0.4 x10(3)/[facility] Basophil % 0.7 % [facility] Baso Absolute 0.0 0.0 - 0.1 x10(3)/[facility] Immature Gran % 0.40 % [facility] Comment: Immature granulocytes(IG's)percentage and absolute count will include metamyelocytes, myelocytes, and promyelocytes. Blood smears from CBCs yielding IG's will be scanned manually for concordance. If this scan disagrees with the automated IG or if promyelocytes are noted, a manual differential will be performed. Immature Gran Absolute 0.03 0.00 - 0.04 x10(3)/[facility] Blood specimen (specimen) 05/11/2017 4:21 PM EDT 05/11/2017 4:29 PM EDT Narrative Resulting Agency Comment Spec In Lab Marcelle Weinberg APRN HEMATOLOGY ORDERA BLES [facility] [place] [address] * (ABNORMAL) Hemogram (05/11/2017 4:21 PM EDT) [...] MEDICAL CENTER LABOR[facility]ORY NRBC% auto 0.0 % [facility] NRBC Absolute 0.000 0.000 - 0.000 x10(3)/mc L [facility] Blood specimen (specimen) 05/11/2017 4:21 PM EDT 05/11/2017 4:29 PM EDT Narrative Resulting Agency Comment Spec In Lab Marcelle Weinberg CONTENT SPECIALIST HEMATOLOGY ORDERA BLES [facility] [place] [address] * CRP, acute inflammation (05/11/2017 4:21 PM EDT) [facility] C-Reactive Protein 2.3 <=4.9 mg/L [facility] Blood specimen (specimen) 05/11/2017 4:21 PM EDT 05/11/2017 4:29 PM EDT Narrative Resulting Agency Comment Spec In Lab Marcelle Weinberg CONTENT SPECIALIST CHEMISTRY ORDERAB LES [facility] [place] [address] * (ABNORMAL) Sedimentation rate (05/11/2017 4:21 PM EDT) Sedimentation Rate Automated 19(H) 0 - 15 mm/hr [facility] Blood specimen (specimen) 05/11/2017 4:21 PM EDT 05/11/2017 4:29 PM EDT Narrative Resulting Agency Comment Spec In Lab Marcelle Weinberg CONTENT SPECIALIST HEMATOLOGY ORDERA BLES [facility] [place] [address] * (ABNORMAL) CMP w/fasting Glucose (05/11/2017 4:21 [...] of Diabetes Mellitus, Position Statement from the [place] [employer]. ??Diabetes Care, Volume 33, Supplement 1, Nov 2009 Blood Urea Nitrogen 20 10 - 20 mg/dL [facility] Creatinine 1.17 0.80 - 1.50 mg/dL [facility] Comment: Please note that the pediatric reference intervals supplied above were not validated at [facility]. Results from pediatric patients should be interpreted [...] the following links into your internet browser. [email or web address]/DHnkdep http://bContext/DHMCnkf Blood specimen (specimen) 05/11/2017 4:21 PM EDT 05/11/2017 4:29 PM EDT Narrative Resulting Agency Comment Spec In Lab Marcelle Weinberg CONTENT SPECIALIST CHEMISTRY ORDERAB LES [facility] [place] [address] documented in this encounter Visit Diagnoses Diagnosis Ulcerative colitis without complications, unspecified location documented in this encounter Care Teams Military Science Instructor Relationship Specialty Start Date End Date Maximilian Fall MD [address] [place] [address] PCP - General 10/01/11 02/13/21 documented as of this encounter
--- OUTSIDE RECORDS SUMMARY | 2024-07-18 14:30 | XMS_ITS | Encounter Summary ---
Author Organization [facility] Address [facility] [place] [address] Care Team Providers Care Pipe Line Maintenance Supervisor Name Role Phone Maximilian Fall MD Primary Care Provider [phone] Reason for Visit * Reason Comments Follow-up Encounter Details Date Type Department Care Team (Latest Contact Info) Description 11/10/2016 8:30 AM EST [place] [address] Dion Barlow MD [facility] [place] [address] Ulcerative rectosigmoiditis with rectal bleeding Social History [...] Note: ?? Colonoscopy 04/08/10 (Dr. Gomes [facility]) - inflammation only within the [...] months. 20 min of this 25 min iegd-me-uabg visit was spent counseling the patient in the issues outlined above. Davina Barlow MD Engineer Soilsequity trader Section of Gastroenter[place] [address] documented in this encounter Plan of Treatment Upcoming Encounters Date Type Department Care Team (Late st Contact Info) Description 08/15/2024 9:00 AM EDT Office [place] [address] Dion Barlow MD [facility] [place] [address] 09/01/2024 9:40 AM EDT Office Visit Cardiology at [address] [phone] Franky Shaver MD [facility] [place] [address] 09/01/2024 11:20 AM EDT Office Visit Dermatology at [facility] [address] [place] [address] Gómez Mercer MD [facility] [place] [address] 09/21/2024 2:45 PM EDT Office Visit Pain and Spine Center at [facility] [place] [phone] Trung Hoyos MD [facility] [place] [address] Scheduled Orders Name Type Priority Associated Diagnoses Orde r Schedule COLONOSCOPY Procedures Routine Ulcerative rectosigmoiditis with rectal bleeding Ordered: 11/10/2016 documented as of this encounter Visit Diagnoses Diagnosis Ulcerative rectosigmoiditis with rectal bleeding documented in this encounter Care Teams Pipe Line Maintenance Supervisor Relationship Specialty Start Date End Date Maximilian Fall MD [address] [place] [address] PCP - General 10/01/11 02/13/21 documented as of this encounter
--- OUTSIDE RECORDS SUMMARY | 2024-07-18 14:30 | XMS_ITS | Encounter Summary ---
Author Organization [facility] Address [facility] [place] [address] Care Team Providers Care Roll Operator Name Role Phone Maximilian Fall MD Primary Care Provider Encounter Details Date Type Department Care Team (Latest Contact Info) Description 11/06/2015 11:16 AM EST - 11/06/2015 11:17 AM [facility] Hospital Encounter XRay at [address] [place] [address] Dion Barlow MD [facility] [place] [address] Pain in right hip; Bilateral low back [...] EDT Office [place] [address] Dion Barlow MD [facility] [place] [address] 09/01/2024 9:40 AM EDT Office Visit Cardiology at [address] [phone] Franky Shaver MD [facility] [place] [address] 09/01/2024 11:20 AM EDT Office Visit Dermatology at [facility] [address] [place] [phone] Gómez Mercer MD [facility] DR EDD[place] [address] 09/21/2024 2:45 PM EDT Office Visit Pain and Spine Center at [facility] [place] [address] Trung Hoyos MD [facility] DR PAIN [place] [address] documented as of this encounter Procedures Procedure [...] complication documented in this encounter Care Teams Roll Operator Relationship Specialty Start Date End Date Maximilian Fall MD [address] [place] [address] PCP - General 10/01/11 02/13/21 documented as of this encounter
--- OUTSIDE RECORDS SUMMARY | 2024-07-18 14:30 | XMS_ITS | Encounter Summary ---
Author Organization [facility] Address [facility] [place] [address] Care Team Providers Care Industrial Staff Nurse Name Role Phone Maximilian Fall MD Primary Care Provider [phone] Encounter Details Date Type Department Care Team (Latest Contact Info) Description 02/12/2017 10:14 AM EDT - 02/12/2017 1:50 PM EDT Hospital En[place] [address] Dion Barlow MD [facility] [place] [address] Discharge Disposition: Home Social History Tobacco Use [...] - 02/12/2017 12:37 PM EDT Please call [phone] before 8pm with problems, questions or concerns, after 5pm call the Hospital at [phone] and ask to speak to the Build Automation Engineer patient registration clerk and the band saw operator will contact that person for [...] sent through Care Everywhere. * COLONOSCOPY: POST-OP (SERBIAN) documented in this encounter Medications at Time [...] 9:00 AM EDT Office [place] [address] Dion Barlow MD [facility] [place] [address] 09/01/2024 9:40 AM EDT Office Visit Cardiology at [address] [place] [address] Franky Shaver MD [facility] [place] [address] 09/01/2024 11:20 AM EDT Office Visit Dermatology at [facility] [address] [place] [address] Gómez Mercer MD [facility] DR ED[place] [address] 09/21/2024 2:45 PM EDT Office Visit [place] [address] Trung Hoyos MD [facility] [place] [address] documented as of this encounter Procedures Procedure [...] L Karthik Barlow MD PATHOLOGY/[place] [address] * Specimen to Pathology (surgical or derm) (02/12/2017 12:16 PM EDT) AP Specimen 02/12/2017 12:1 6 PM EDT 02/12/2017 12:16 PM EDT Narrative [facility] - 02/12/2017 12:16 PM EDT Specimen requisition ordered. ??Separate Pathology report to follow L Karthik Barlow MD PATHOLOGY/[place] [address] * Specimen to Pathology (surgical or derm) (02/12/2017 12:16 PM EDT) AP Specimen 02/12/2017 12:1 6 PM EDT 02/12/2017 12:16 PM EDT Narrative [facility] - 02/12/2017 12:16 PM EDT Specimen requisition ordered. ??Separate Pathology report to follow L Karthik Barlow MD PATHOLOGY/[place] [address] * Specimen to Pathology (surgical or derm) (02/12/2017 12:16 PM EDT) AP Specimen 02/12/2017 12:1 6 PM EDT 02/12/2017 12:16 PM EDT Narrative [facility] - 02/12/2017 12:16 PM EDT Specimen requisition ordered. ??Separate Pathology report to follow L Karthik Barlow MD PATHOLOGY/CYTOLOGY Ozzie MIKE [facility] [place] [address] * Surgical Pathology Report (02/12/2017 12:15 PM EDT) Final Diagnosis [id number] ?Location: 4T; EA07; A The signing pathologist [...] L Karthik Barlow MD PATHOLOGY/CYTOLOGY O CEE [facility] [place] [address] * COLONOSCOPY (02/12/2017 11:40 AM EDT) COLONOSCOPY [facility] Endoscopy ___ Procedure Date: 02/12/2017 11:40 AM ? Patient Name: Brian Rodriguez ? Date of : 1950 ? Age: 66 ? Order #: [id number] ? Instrument Name: [id number] ? ___ Procedure: ? Colonoscopy Indications: ? High risk colon cancer surveillance: ? Ulcerative colitis Patient Profile: ? This is a 66 year old male. This ? patient has left-sided ulcerative ? colitis on sulfasalazine and ? Cortifoam and is experiencing mild ? symptoms. Providers: ? Davina Barlow MD, Vandana Love ? Mike, RONY, Sonal [facility], ? Air Quality Technician Referring MD: ?Maximilian Fall MD Medicines: ? [...] RDMELISSA Performing Organization Address City/[facility]/ZIP Co de Phone Number [facility] [place] [address] documented in this encounter Visit Diagnoses Not [...] RN) documented in this encounter Care Teams Industrial Staff Nurse Relationship Specialty Start Date End Date Maximilian Fall MD [address] [place] [address] PCP - General 10/01/11 02/13/21 documented as of this encounter
--- OUTSIDE RECORDS SUMMARY | 2024-07-18 14:30 | XMS_ITS | Encounter Summary ---
Author Organization [facility] [place] [address] Care Team Providers Care Conveyor Attendant Name Role Phone Maximilian Fall MD Primary Care Provider [phone] Encounter Details Date Type Department Care Team (Late Contact Info) Description 11/06/2015 Orders [place] [phone] Marcelle Weinberg, JAZMINE [facility] [place] [address] Ulcerative colitis without complications Social History Tobacco [...] 9:00 AM EDT Office Visit [place] [phone] Dion Barlow MD [facility] [place] [address] 09/01/2024 9:40 AM EDT Office Visit Cardiology at [address] [place] [address] Franky Shaver MD [facility] [place] [address] 09/01/2024 11:20 AM EDT Office Visit Dermatology at [facility] [address] [place] [address] Gómez Mercer MD [facility] DR [place] [address] 09/21/2024 2:45 PM EDT Office Visit Pain and Spine Center at [facility] [place] [phone] Trung Hoyos MD [facility] [place] [address] documented as of this encounter Visit Diagnoses Diagnosis Ulcerative colitis without complications Ulcerative colitis, unspecified documented in this encounter Care Teams Conveyor Attendant Relationship Specialty Start Date End Date Maximilian Fall MD [address] [facility] [place] [address] PCP - General 10/01/11 02/13/21 documented as of this encounter
--- OUTSIDE RECORDS SUMMARY | 2024-07-18 14:30 | XMS_ITS | Encounter Summary ---
Author Organization [facility] Address [facility] [place] [address] Care Team Providers Care Receiving Dock Checker Name Role Phone Maximilian Fall MD Primary Care Provider [phone] Reason for Visit * Reason Comments Follow-up Encounter Details Date Type Department Care Team (Late st Contact Info) Description 12/04/2015 3:30 PM EST Office [place] [address] Marcelle Weinberg, JAZMINE [facility] [place] [address] Other ulcerative colitis Social History Tobacco Use [...] to move his bowels. Still formed stool. [place] better after defecation. Eating well. Weight stable. [...] COLONOSCOPY, DIAGNOSTIC performed by Dion OSULLIVAN at [facility] ENDOSCOPY ??? Pro sigmoidoscopy, diagnostic 03/16/2012 FLEXIBLE SIGMOIDOSCOPY performed by YUDI MALLOY at [facility] ENDOSCOPY ??? Upper gi endoscopy, exam 10/01/2012 UPPER GI ENDOSCOPY performed by Dion OSULLIVAN at [facility] ENDOSCOPY ??? Pro colonoscopy, diagnostic 07/13/2014 COLONOSCOPY, DIAGNOSTIC performed by Dion Osullivan MD at [facility] ENDOSCOPY History Social History ??? Marital Status: [...] UA Latest Range: Clear Hazy (A) Spec [place] UA Latest Range: 1.002-1.030 1.020 pH UA [...] 9:00 AM EDT Office [place] [phone] Dion Osullivan MD [facility] [place] [address] 09/01/2024 9:40 AM EDT Office Visit Cardiology at [address] [address] Franky Shaver MD [facility] [place] [address] 09/01/2024 11:20 AM EDT Office Visit Dermatology at [address] [address] Gómez Mercer MD [facility] [place] [address] 09/21/2024 2:45 PM EDT Office Visit [facility] [place] [address] Trung Hoyos MD [facility] [place] [address] documented as of this encounter Visit Diagnoses Diagnosis Other ulcerative colitis documented in this encounter Care Teams Receiving Dock Checker Relationship Specialty Start Date End Date Maximilian Fall MD [address] [place] [address] PCP - General 10/01/11 02/13/21 documented as of this encounter
--- OUTSIDE RECORDS SUMMARY | 2024-07-18 14:30 | XMS_ITS | Encounter Summary ---
Author Organization [facility] [place] [address] Care Team Providers Care Projection Welding Machine Operator Name Role Phone Maximilian Fall MD Primary Care Provider Encounter Details Date Type Department Care Team (Late st Contact Info) Description 11/08/2015 Orders [place] [address] Marcelle Weinberg, MOLDING TECHNICIAN [facility] [place] [address] Urinary tract infection without hematuria, site unspecified [...] this encounter Progress Notes * Marcelle Weinberg, MOLDING TECHNICIAN - 11/08/2015 5:53 PM EST I spoke [...] UA Latest Range: Clear Hazy (A) Spec [place] UA Latest Range: 1.002-1.030 1.020 pH UA [...] 9:00 AM EDT Office [place] [phone] Dion Barlow MD [facility] [place] [address] 09/01/2024 9:40 AM EDT Office Visit Cardiology at [address] [place] [address] Franky hSaver MD [facility] [place] [address] 09/01/2024 11:20 AM EDT Office Visit Dermatology at [address] [place] [address] Gómez Mercer MD [facility] [place] [address] 09/21/2024 2:45 PM EDT Office Visit [facility] [place] [address] Trung Hoyos MD [facility] [place] [address] documented as of this encounter Visit Diagnoses Diagnosis Urinary tract infection without hematuria, site unspecified documented in this encounter Care Teams Projection Welding Machine Operator Relationship Specialty Start Date End Date Maximilian Fall MD [address] [place] [address] PCP - General 10/01/11 02/13/21 documented as of this encounter
--- OUTSIDE RECORDS SUMMARY | 2024-07-18 14:30 | XMS_ITS | Encounter Summary ---
Author Organization [facility] [place] [address] Care Team Providers Care Ice Cream Freezer Helper Name Role Phone Maximilian Fall MD Primary Care Provider [phone] Encounter Details Date Type Department Care Team (Latest Contact Info) Description 07/18/2016 2:18 PM EDT - 07/18/2016 11:59 PM EDT Hospital [place] [address] Left sided colitis, unspecified complication; Chronic ulcerative [...] 9:00 AM EDT Office [place] [address] Dion Barlow MD [facility] [place] [address] 09/01/2024 9:40 AM EDT Office Visit Cardiology at [address] [phone] Franky Shaver MD [facility] [place] [address] 09/01/2024 11:20 AM EDT Office Visit Dermatology at [facility] [address] [place] [address] Gómez Mercer MD [facility] DR [place] [address] 09/21/2024 2:45 PM EDT Office Visit Pain and Spine Center at [facility] [place] [address] Trung Hoyos MD [facility] [place] [address] documented as of this encounter Procedures Procedure Name Priority Date/Time Associated Diagnosis Comments CAMPYLOBACTER ANTIGEN Routine 07/18/2016 2:32 PM EDT Chronic ulcerative enterocolitis, unspecified complication Acute amebic dysentery C. DIFFICILE SCREEN Routine 07/18/2016 2 :32 PM EDT Chronic ulcerative enterocolitis, unspecified complication Acute amebic dysentery STOOL CULTURE SCREEN ([facility]/CGP/APD/NLH) Routine 07/18/2016 2:27 PM EDT Chronic ulcerative enterocolitis, unspecified complication Acute amebic dysentery CRYPTOSPORIDIUM OOCYST ANTIGEN ([facility]/CGP/APD) Routine 07/18/2016 2:27 PM EDT Left sided colitis, unspecified complication SHIGA TOXIN ASSAY Routine 07/18/2016 2:2 7 PM EDT Chronic ulcerative enterocolitis, unspecified complication Acute amebic dysentery GIARDIA/CRYPTOSPORIDIUM ANTIGENS ([facility]/CGP/APD/NLH) Routine 07/18/2016 2:27 PM EDT Left sided colitis, unspecified complication GIARDIA ANTIGEN ([facility]/CGP/APD/NLH) Routine 07/18/2016 2:27 PM EDT Left sided colitis, unspecified complication STOOL CULTURE Routine 07/18/2016 2:27 PM EDT Chronic ulcerative enterocolitis, unspecified complication Acute amebic dysentery documented in this encounter Results * Campylobacter Antigen (07/18/2016 2:32 PM EDT) Pathologist [facility] Campylobacter Ag Immunoassay Negative for Campylobacter Antigen [facility] Stool specimen (specimen) 07/18/2016 2:32 PM EDT 07/18/2016 2:32 PM EDT Narrative Resulting Agency Comment Spec In Lab L Karthik Barlow MD MICROBIOLOGY - GENER AL ORDERABLES Performing Organization Address City/[facility]/ZIP Co de Phone Number [facility] [place] [address] * C. Difficile Screen (07/18/2016 2:32 PM EDT) C Diff Interp Negative Negative [facility] Comment: C. diff ??Negative Clostridium difficile is not present in the specimen. If patient is having diarrhea suspected to be from an infectious cause, then Contact Precautions are still required. Stool specimen (specimen) 07/18/2016 2:32 PM EDT 07/18/2016 2:32 PM EDT Narrative Resulting Agency Comment Spec In Lab L Karthik Barlow MD MICROBIOLOGY - GENER AL ORDERABLES Performing Organization Address [facility] Co de Phone Number [facility] [place] [address] * Shiga Toxin Detection (07/18/2016 2:27 PM EDT) Shiga Toxin Assay EIA Negative for Shiga Toxin 1 EIA Negative for Shiga Toxin 2 [facility] Stool specimen (specimen) 07/18/2016 2:27 PM EDT 07/18/2016 2:32 PM EDT Narrative Resulting Agency Comment Spec In Lab Dion Barlow MD MICROBIOLOGY - GENER AL ORDERABLES Performing Organization Address City/[facility] Co de Phone Number [facility] [place] [address] * Stool culture (07/18/2016 2:27 PM EDT) Stool Culture No enteric pathogens isolated [facility] Stool specimen (specimen) 07/18/2016 2:27 PM EDT 07/18/2016 2:32 PM EDT Narrative Resulting Agency Comment Spec In Lab L Karthik Barlow MD MICROBIOLOGY - GENER AL ORDERABLES Performing Organization Address [facility] Co de Phone Number [facility] [place] [address] * Cryptosporidium Oocyst Antigen (07/18/2016 2:27 PM EDT) Cryptosporidium Antigen Negative Negative [facility] Stool specimen (specimen) 07/18/2016 2:27 PM EDT 07/18/2016 2:32 PM EDT Narrative Resulting Agency Comment Spec In Lab L Karthik Barlow MD MICROBIOLOGY - GENER AL ORDERABLES Performing Organization Address [facility] Co de Phone Number [facility] [place] [address] * Giardia antigen (07/18/2016 2:27 PM EDT) Giardia Antigen Negative Negative [facility] Comment:Examination for othe r intestinal parasites requires foreign travel history. Stool specimen (specimen) 07/18/2016 2:27 PM EDT 07/18/2016 2:32 PM EDT Narrative Resulting Agency Comment Spec In Lab L Karthik Barlow MD MICROBIOLOGY - GENER AL ORDERABLES Performing Organization Address [facility] Co de Phone Number [facility] [place] [address] documented in this encounter Visit Diagnoses Diagnosis Left sided colitis, unspecified complication Chronic ulcerative enterocolitis, unspecified complication Acute amebic dysentery Acute amebic dysentery without mention of abscess documented in this encounter Care Teams Ice Cream Freezer Helper Relationship Specialty Start Date End Date Maximilian Fall MD [address] [place] [address] PCP - General 10/01/11 02/13/21 documented as of this encounter
--- OUTSIDE RECORDS SUMMARY | 2024-07-18 14:30 | XMS_ITS | Encounter Summary ---
Author Organization [facility] Address [facility] [place] [address] Care Team Providers Care Oil Heater Operator Name Role Phone Maximilian Fall MD Primary Care Provider Reason for Visit * Reason Comments Follow-up Encounter Details Date Type Department Care Team (Late st Contact Info) Description 10/29/2017 10:30 AM EST Office [place] [address] Dion Barlow MD [facility] [place] [address] Left sided ulcerative colitis with complication Social [...] Overview Note: ? Colonoscopy 04/08/10 (Dr. Gomes [facility]) - inflammation only within [...] months. 15 min of this 25 min [id number] visit was spent counseling the patient in the issues outlined above. Davina Barlow MD Stretcher Operatorelectrical electronics engineers Section of Gastroenterology [place] [address] CC: Maximilian Fall MD [address] [place] [phone] documented in this encounter Plan of Treatment Upcoming Encounters Date Type Department Care Team (Late st Contact Info) Description 08/15/2024 9:00 AM EDT Office [place] [address] Dion Barlow MD [facility] [place] [address] 09/01/2024 9:40 AM EDT Office Visit Cardiology at [address] [place] [address] Franky Shaver MD [facility] [place] [address] 09/01/2024 11:20 AM EDT Office Visit Dermatology at [facility] [address] [place] [address] Gómez Mercer MD [facility] DR EDD[place] [address] 09/21/2024 2:45 PM EDT Office Visit Pain and Spine Center at [facility] ([place] [address] Trung Hoyos MD [facility] [place] [address] documented as of this encounter Visit Diagnoses Diagnosis Left sided ulcerative colitis with complication documented in this encounter Care Teams Oil Heater Operator Relationship Specialty Start Date End Date Maximilian Fall MD [address] [place] [address] PCP - General 10/01/11 02/13/21 documented as of this encounter
--- OUTSIDE RECORDS SUMMARY | 2024-07-18 14:30 | XMS_ITS | Encounter Summary ---
Author Organization [facility] [place] [address] Care Team Providers Care Orthodontic Technician Name Role Phone Maximilian Fall MD Primary Care Provider [phone] Encounter Details Date Type Department Care Team (Late st Contact Info) Description 07/07/2016 Telephone [place] [phone] Bethany Trivedi RN Social History Tobacco Use [...] 9:00 AM EDT Office [place] [address] Dion Barlow MD [facility] [place] [address] 09/01/2024 9:40 AM EDT Office Visit Cardiology at [address] [phone] Franky Shaver MD [facility] [place] [address] 09/01/2024 11:20 AM EDT Office Visit Dermatology at [facility] [address] [place] [address] Gómez Mercer MD [facility] DR ED[place] [address] 09/21/2024 2:45 PM EDT Office Visit [place] [phone] Trung Hoyos MD [facility] [place] [address] documented as of this encounter Results * C. Difficile Screen (07/18/2016 2:32 PM EDT) C Diff Interp Negative Negative [facility] Comment: C. diff ??Negative Clostridium difficile is not present in the specimen. If patient is having diarrhea suspected to be from an infectious cause, then Contact Precautions are still required. Stool specimen (specimen) 07/18/2016 2:32 PM EDT 07/18/2016 2:32 PM EDT Narrative Resulting Agency Comment Spec In Lab L Karthik Barlow MD MICROBIOLOGY - GENER AL ORDERABLES Performing Organization Address [facility]/ZIP Co de Phone Number [facility] [place] [address] * (ABNORMAL) Sedimentation rate (07/14/2016 12:21 PM EDT) Sedimentation Rate Automated 17(H) 0 - 15 mm/hr [facility] Blood specimen (specimen) 07/14/2016 12:21 PM EDT 07/14/2016 12:29 PM EDT Narrative Resulting Agency Comment Spec In Lab L Karthik Barlow MD HEMATOLOGY ORDERABLE S Performing Organization Address [facility] Co de Phone Number [facility] [place] [address] * Comprehensive metabolic panel (non-fasting) (07/14/2016 12:21 PM EDT) Glucose 147 65 - 199 mg/dL [facility] Comment:Diabetes: >=200 mg/d L plus symptoms Blood Urea Nitrogen 17 10 - 20 mg/dL [facility] Creatinine 1.04 0.80 - 1.50 mg/dL [facility] Comment: Please note that the pediatric reference intervals supplied above were not validated at [facility]. Results from pediatric patients should be interpreted in conjunction to the patient's age, height and muscle mass. Sodium 140 135 - 145 mmol/L [facility] Potassium 4.6 3.5 - 5.0 mmol/L [facility] Comment: Please note: ??Patients with WBC >100,000 may have falsely elevated Potassium levels. ??For accurate Potassium quantification in these patients send serum separator tube (gold top) for subsequent determinations. ??Contact the Clinical Chemistry Laboratory if there are any questions. Chloride 102 98 - 107 mmol/L [facility] Carbon Dioxide 25 22 - 31 mmol/L [facility] Anion Gap 13 5 - 15 mmol/L [facility] Calcium 9.7 8.5 - 10.5 mg/dL [facility] Protein, Total 7.9 6.1 - 8.0 gm/dL [facility] Albumin 4.4 3.2 - 5.2 gm/dL [facility] Aspartate Aminotransferase 15 0 - 39 unit/L [facility] Alanine Aminotransferase 20 0 - 55 unit/L [facility] Alkaline Phosphatase 65 40 - 120 unit/L [facility] Bilirubin, Total 0.4 0.2 - 1.3 mg/dL [facility] Bilirubin, Direct 0.1 0.0 - 0.3 mg/dL [facility] Est Glomerular Filtration Rate >60 >=60 [facility] Comment: This estimated GFR (eGFR) [...] the following links into your internet browser. [email or web address] Blood specimen (specimen) 07/14/2016 12:21 PM EDT 07/14/2016 12:29 PM EDT Narrative Resulting Agency Comment Spec In Lab L Karthik Barlow MD CHEMISTRY ORDERABLES [facility] [place] [address] * High Sensitivity CRP (07/14/2016 12:21 PM EDT) C-Reactive Protein High Sensitivity 4.8 mg/L [facility] Comment: Interpretations: 1) For accurate [...] MD CHEMISTRY ORDERABLES [facility] [place] [id number] documented in this encounter Visit Diagnoses Diagnosis Chronic ulcerative enterocolitis, unspecified complication Acute amebic dysentery Acute amebic dysentery without mention of abscess documented in this encounter Care Teams Orthodontic Technician Relationship Specialty Start Date End Date Maximilian Fall MD [address] [place] [address] [address] PCP - General 10/01/11 02/13/21 documented as of this encounter
--- OUTSIDE RECORDS SUMMARY | 2024-07-18 14:30 | XMS_ITS | Encounter Summary ---
Author Organization [facility] Address [facility] [place] [address] Care Team Providers Care Gis Programmer Name Role Phone Maximilian Fall MD Primary Care Provider [phone] Reason for Visit * Reason Comments Follow-up Encounter Details Date Type Department Care Team (Late st Contact Info) Description 05/16/2016 10:30 AM EDT Office Visit [place] [address] Dion Barlow MD [facility] [place] [address] Other ulcerative colitis with complication Social History [...] ?? Colonoscopy 04/08/10 (Dr. Gomes [facility]) - inflammation only within the rectum and sigmoid; extent of the exam was to the hepatic flexure; biopsies proximal to the sigmoid nl ?? Repeat exam 11/27/11 ([facility]): mildly active colitis in the sigmoid colon [...] months. 10 min of this 15 min [id number] visit was spent counseling the patient in the issues outlined above. Davina Barlow MD Plant Etiologistsales account specialist Section of Gastroenterology [place] [address] documented in this encounter Plan of Treatment Upcoming Encounters Date Type Department Care Team (Late st Contact Info) Description 08/15/2024 9:00 AM EDT Office Visit [place] [phone] Dion Barlow MD [facility] [place] [address] 09/01/2024 9:40 AM EDT Office Visit Cardiology at [address] [place] [address] Franky Shaver MD [facility] [place] [address] 09/01/2024 11:20 AM EDT Office Visit Dermatology at [facility] [address] [place] [address] Gómez Mercer MD [facility] [place] [address] 09/21/2024 2:45 PM EDT Office Visit [facility] [place] [address] Trung Hoyos MD [facility] [place] [address] documented as of this encounter Visit Diagnoses Diagnosis Other ulcerative colitis with complication documented in this encounter Care Teams Gis Programmer Relationship Specialty Start Date End Date Maximilian Fall MD [address] [facility] [address] [place] [address] PCP - General 10/01/11 02/13/21 documented as of this encounter
--- OUTSIDE RECORDS SUMMARY | 2024-07-18 14:30 | XMS_ITS | Encounter Summary ---
Author Organization [facility] Address [facility] [place] [address] Care Team Providers Care Laborer Bituminous Paving Name Role Phone Maximilian Fall MD Primary Care Provider [phone] Reason for Visit * Reason Comments Follow-up Encounter Details Date Type Department Care Team (Late st Contact Info) Description 04/08/2016 1:30 PM EDT Office Visit [place] [address] Marcelle Weinberg, JAZMINE [facility] [place] [address] Ulcerative chronic pancolitis, unspecified complication Social History [...] Overview Note: ?? Colonoscopy 04/08/10 (Dr. Gomes [facility]) - inflammation only within the rectum and sigmoid; extent of the exam was to the hepatic flexure; biopsies proximal to the sigmoid nl ?? Repeat exam 11/27/11 ([facility] [...] COLONOSCOPY, DIAGNOSTIC performed by Dion OSULLIVAN at [facility] ENDOSCOPY ??? Pro sigmoidoscopy, diagnostic 03/16/2012 FLEXIBLE SIGMOIDOSCOPY performed by YUDI MALLOY at [facility] ENDOSCOPY ??? Upper gi endoscopy, exam 10/01/2012 UPPER GI ENDOSCOPY performed by Dion OSULLIVAN at [facility] END[facility] ??? Pro colonoscopy, diagnostic 07/13/2014 COLONOSCOPY, DIAGNOSTIC performed by Dion Osullivan MD at [facility] ENDOSCOPY No family history on [...] 9:00 AM EDT Office Visit [place] [address] Dion Osullivan MD [facility] [place] [address] 09/01/2024 9:40 AM EDT Office Visit Cardiology at [address] [address] Franky Shaver MD [facility] [address] 09/01/2024 11:20 AM EDT Office Visit Dermatology at [facility] [address] [place] [address] Gómez Mercer MD [facility] [address] EDDIE [place] [address] 09/21/2024 2:45 PM EDT Office Visit [facility] [place] [phone] Trung Hoyos MD [facility] [place] [address] documented as of this encounter Visit Diagnoses Diagnosis Ulcerative chronic pancolitis, unspecified complication documented in this encounter Care Teams Laborer Bituminous Paving Relationship Specialty Start Date End Date Maximilian Fall MD [address] [place] [address] PCP - General 10/01/11 02/13/21 documented as of this encounter
--- OUTSIDE RECORDS SUMMARY | 2024-07-18 14:30 | XMS_ITS | Encounter Summary ---
Author Organization [facility] Address [facility] [place] [id number] Care Team Providers Care Dyeing Machine Back Tender Name Role Phone Maximilian Fall MD Primary Care Provider [phone] Reason for Referral * Diagnostic Test (Routine) - Closed Specialty Diagnoses / Procedures Referred By Contac t Referred To Contact Radiology Diagnoses Postoperative wound abscess, initial encounter Procedures CT Retroperitoneal Abscess Drain Minnie Johnson MD [facility] [place] [address] [facility] [place] [address] Referral ID Status Reason Start Date Expiration Date V isits Requested Visits Authorized [id number] Closed Specialty Service Requested 03/22/2016 03/22/2017 1 1 Encounter Details Date Type Department Care Team (Late st Contact Info) Description 03/22/2016 [place] [address] Minnie Johnson MD [facility] [place] [address] Postoperative wound abscess, initial encounter [...] : 1950 Referring Physician: Dr. Guerin from [facility] Indication: RLQ post-operative abscess Planned Procedure: CT guided abscess drain placement Chief Complaint/HPI: 65 y.o. male with PMHx significant for asthma, diabetes, and ulcerative colitis who is status post laparoscopic appendectomy on 03/13/2016 who noted RLQ pain several days post-op.He presented to [facility] ED and underwent a CT scan with findings consistent with RLQ abscess. We have been consulted for CT guided abscess drain placement. The patient has been admitted to [facility] and will be transferred back to [facility] following the procedure. OSH Labs: WBC [...] Hurtado. Minnie Johnson MD Radiology, PGY-2 Pager [phone] documented in this encounter Plan of Treatment Upcoming Encounters Date Type Department Care Team (Late st Contact Info) Description 08/15/2024 9:00 AM EDT Office [place] [address] Dion Barlow MD [facility] [place] [address] 09/01/2024 9:40 AM EDT Office Visit Cardiology at [address] [place] [address] Franky Shaver MD [facility] [place] [address] 09/01/2024 11:20 AM EDT Office Visit Dermatology at [facility] [address] [place] [address] Gómez Mercer MD [facility] DR [place] [address] 09/21/2024 2:45 PM EDT Office Visit Pain and Spine Center at [facility] [place] [address] Trung Hoyos MD [facility] [place] [address] documented as of this encounter Results * CT Retroperitoneal Abscess Drain (03/22/2016 12:34 PM EDT) Anatomical Region Laterality Modality Abdomen Computed Tomogra phy Narrative 03/22/2016 1:02 PM EDT VIR PROCEDURE NOTE Procedure: CT-guided RLQ?? drainage catheter placement (ACC # [id number]) Indication : 65 y.o. male with PMHx significant for asthma, diabetes, and ulcerative colitis who is status post laparoscopic appendectomy on 03/13/2016 who noted RLQ pain several days post-op. He presented to [facility] ED and underwent a CT scan with findings consistent with RLQ abscess. We have been consulted for CT guided abscess drain placement. The patient has been admitted to [facility] and will be transferred back to [facility] following the procedure. Technique: After discussing [...] encounter documented in this encounter Care Teams Dyeing Machine Back Tender Relationship Specialty Start Date End Date Maximilian Fall MD [address] [place] [address] PCP - General 10/01/11 02/13/21 documented as of this encounter
--- OUTSIDE RECORDS SUMMARY | 2024-07-18 14:30 | XMS_ITS | Encounter Summary ---
Author Organization [facility] Address [facility] [place] [address] Care Team Providers Care Enrollment Advisor Name Role Phone Maximilian Fall MD Primary Care Provider [phone] Encounter Details Date Type Department Care Team (Late st Contact Info) Description 02/12/2017 11:15 AM EDT - 02/12/2017 12:00 PM EDT Surgery [place] [address] Dion Barlow MD [facility] [place] [address] COLONOSCOPY FLEXIBLE, WITH BX (WRVU 3.56) Social [...] - 02/12/2017 12:37 PM EDT Please call [phone] before 8pm with problems, questions or concerns, after 5pm call the Hospital at [phone] and ask to speak to the Refuse Collector Supervisor director instructional material and the paddle dyeing machine operator will contact that person for [...] 9:00 AM EDT Office [place] [address] Dion Barlow MD [facility] [place] [address] 09/01/2024 9:40 AM EDT Office Visit Cardiology at [address] [place] [phone] Franky Shaver MD [facility] [place] [address] 09/01/2024 11:20 AM EDT Office Visit Dermatology at [facility] [address] [place] [address] Gómez Mercer MD [facility] DR [place] [address] 09/21/2024 2:45 PM EDT Office Visit [place] [address] Trung Hoyos MD [facility] [place] [address] documented as of this encounter Procedures Procedure [...] PM EDT 02/12/2017 12:16 PM EDT Narrative [facility] - 02/12/2017 12:16 PM EDT Specimen requisition ordered. ??Separate Pathology report to follow L Karthik Barlow MD PATHOLOGY/CYTOLOGY O CEE Performing Organization Address City/[facility]/[place] [address] * Specimen to Pathology (surgical or derm) (02/12/2017 12:16 PM EDT) AP Specimen 02/12/2017 12:1 6 PM EDT 02/12/2017 12:16 PM EDT Narrative [facility] - 02/12/2017 12:16 PM EDT Specimen requisition ordered. ??Separate Pathology report to follow L Karthik Barlow MD PATHOLOGY/CYTOLOGY O CEE Performing Organization Address City/[facility]/[place] [address] * Specimen to Pathology (surgical or derm) (02/12/2017 12:16 PM EDT) AP Specimen 02/12/2017 12:1 6 PM EDT 02/12/2017 12:16 PM EDT [facility] - 02/12/2017 12:16 PM EDT Specimen requisition ordered. ??Separate Pathology report to follow L Karthik Barlow MD PATHOLOGY/[place] [address] * Specimen to Pathology (surgical or derm) (02/12/2017 12:16 PM EDT) AP Specimen 02/12/2017 12:1 6 PM EDT 02/12/2017 12:16 PM EDT Narrative [facility] - 02/12/2017 12:16 PM EDT Specimen requisition ordered. ??Separate Pathology report to follow L Karthik Barlow MD PATHOLOGY/CYTOLOGY Ozzie MIKE [facility] [place] [address] * Surgical Pathology Report (02/12/2017 12:15 PM EDT) Final Diagnosis [id number] ?Location: 4T; EA07; A The signing pathologist [...] ing: (T2) ??ejr 02/13/2017 4:23 PM EDT [facility] GI Biopsy 02/12/2017 12:1 5 PM EDT 02/12/2017 12:15 PM EDT GI Biopsy 02/12/2017 12:1 5 PM EDT 02/12/2017 12:15 PM EDT GI Biopsy 02/12/2017 12:1 5 PM EDT 02/12/2017 12:15 PM EDT GI Biopsy 02/12/2017 12:1 5 PM EDT 02/12/2017 12:15 PM EDT L Karthik Barlow MD PATHOLOGY/CYTOLOGY O CEE [facility] [place] [address] * COLONOSCOPY (02/12/2017 11:40 AM EDT) COLONOSCOPY [facility] ___ Procedure Date: 02/12/2017 11:40 AM ? Patient Name: Brian Rodriguez ? Date of : 1950 ? Age: 66 ? Order #: [id number] ? Instrument Name: [id number] ? ___ Procedure: ? Colonoscopy Indications: ? High risk colon cancer surveillance: ? Ulcerative colitis Patient Profile: ? This is a 66 year old male. This ? patient has left-sided ulcerative ? colitis on sulfasalazine and ? Cortifoam and is experiencing mild ? symptoms. Providers: ? L. Karthik Barlow MD, Vandana Love ? RONY Mckeon, Sonal [facility], ? Clinical Lab Specialist Referring MD: ?Maximilian Fall MD Medicines: [...] preparation was evaluated using ? the BBPS ([place] Bowel Preparation ? Scale) with scores of: [...] GENERAL SURGICAL ORD ERABLES Performing Organization Address City/[facility]/ZIP Co de Phone Number [employer] * POCT Fingerstick Glucose (02/12/2017 10:30 AM EDT) Glucose, POC 132 60 - 199 mg/dl 02/12/2017 10:3 0 AM EDT Dion Barlow MD POINT OF CARE TEST O RDERAOMAR * POCT Glucose (02/12/2017 10:29 AM EDT) Glucose, POC 132 65 - 199 mg/dL [facility] Comment: Supplemental ranges: <140 mg/dL before meals <180 mg/dL all other times of the day Blood specimen (specimen) 02/12/2017 10:29 AM EDT 02/12/2017 10:29 AM EDT Dion Barlow MD POINT OF CARE TEST O RDMELISSA Performing Organization Address [facility] Co de Phone Number [facility] [place] [address] documented in this encounter Visit Diagnoses Diagnosis [...] RN) documented in this encounter Care Teams Enrollment Advisor Relationship Specialty Start Date End Date Maximilian Fall MD [address] [place] [address] PCP - General 10/01/11 02/13/21 documented as of this encounter
--- OUTSIDE RECORDS SUMMARY | 2024-07-18 14:30 | XMS_ITS | Encounter Summary ---
Author Organization [facility] [place] [address] Care Team Providers Care Belt Maker Helper Name Role Phone Maximilian Fall MD Primary Care Provider Encounter Details Date Type Department Care Team (Late st Contact Info) Description 07/07/2016 Telephone [place] [address] Bethany Trivedi RN Social History Tobacco Use [...] EDT Cortifoam approved 07/07/16 until furhter notice [place] id# [id number] * Telephone Encounter - Bethany Trivedi RN - 07/07/2016 12:10 PM EDT Formulary exception form sent in for Cortifoam enemas documented in this encounter Plan of Treatment Upcoming Encounters Date Type Department Care Team (Late st Contact Info) Description 08/15/2024 9:00 AM EDT Office Visit [place] [address] Dion Barlow MD [facility] [place] [address] 09/01/2024 9:40 AM EDT Office Visit Cardiology at [address] [place] [address] Franky Shaver MD [facility] [place] [address] 09/01/2024 11:20 AM EDT Office Visit Dermatology at [place] [address] [place] [address] Gómez Mercer MD [facility] [place] [address] 09/21/2024 2:45 PM EDT Office Visit [facility] [place] [address] Trung Hoyos MD [facility] [place] [address] documented as of this encounter Visit Diagnoses Not on filedocumented in this encounter Care Teams Belt Maker Helper Relationship Specialty Start Date End Date Maximilian Fall MD [address] [place] [address] PCP - General 10/01/11 02/13/21 documented as of this encounter
--- OUTSIDE RECORDS SUMMARY | 2024-07-18 14:30 | XMS_ITS | Encounter Summary ---
Author Organization [facility]ly [facility] [place] [address] Care Team Providers Care Investment Recovery Technician Name Role Phone Maximilian Fall MD Primary Care Provider [phone] Encounter Details Date Type Department Care Team (Latest Contact Info) Description 07/14/2016 11:55 AM EDT Laboratory Appointment Lab [address] [place] [phone] Chronic ulcerative enterocolitis, unspecified complication; Acute amebic [...] Office [place] [phone] Dion Barlow MD [facility] [place] [address] 09/01/2024 9:40 AM EDT Office Visit Cardiology at [address] [phone] Franky Shaver MD [facility] [place] [address] 09/01/2024 11:20 AM EDT Office Visit Dermatology at [facility] [address] [place] [address] Gómez Mercer MD [facility] DR EDDIE [place] [address] 09/21/2024 2:45 PM EDT Office Visit Pain and Spine Center at [facility] [place] [address] Trung Hoyos MD [facility] [address] documented as of this encounter Procedures Procedure [...] 12:21 PM EDT) Neutrophil % 60.2 % [facility] Neutrophil Absolute 3.77 1.50 - 6.30 x10(3)/[facility] LABOR[facility] Lymph % 27.2 % [facility] Lymphocytes Abs 1.7 1.0 - 3.6 x10(3)/[facility] LABORATORY Monocyte % 9.0 % [facility] Monocyte Abs 0.6 0.2 - 1.0 x10(3)/[facility]OR[facility]ORY Eos % 2.6 % [facility] Eosinophils Abs 0.2 0.0 - 0.5 x10(3)/[facility] Basophil % 0.5 % [facility] Baso Absolute 0.0 0.0 - 0.2 x10(3)/[facility] LABORATORY Immature Gran % 0.50 % [facility] Comment: Immature granulocytes(IG's)percentage and absolute count will include metamyelocytes, myelocytes, and promyelocytes. Blood smears from CBCs yielding IG's will be scanned manually for concordance. If this scan disagrees with the automated IG or if promyelocytes are noted, a manual differential will be performed. Immature Gran Absolute 0.03 0.00 - 0.05 x10(3)/[facility] LABORATORY Blood specimen (specimen) 07/14/2016 12:21 PM EDT 07/14/2016 12:29 PM EDT Narrative Resulting Agency Comment Spec In Lab L Karthik Barlow MD HEMATOLOGY ORDERABLE S [facility] [place] [address] * (ABNORMAL) Hemogram (07/14/2016 12:21 PM EDT) Pathologist [facility] White Blood Cell 6.2 4.0 - 10.0 x10(3)/mc L [facility] Red Blood Cell 4.11(L) 4.63 - 6.08 x10(6)/mc L [facility] Hemoglobin 13.4(L) 13.7 - 17.5 gm/dL [facility] Hematocrit 40.5 40.0 - 51.0 % [facility] Mean Cell Volume 98.5(H) 79.0 - 92.0 fL [facility] Mean Cell Hemoglobin 32.6(H) 25.6 - 32.2 pg [facility] Mean Cell Hemoglobin Concentration 33.1 32.0 - 36.5 gm/dL [facility] Platelet 214 145 - 370 x10(3)/mc L [facility] RDW Standard Deviation 47.4(H) 35.0 - 46.0 fL [facility] RDW coefficient of variation 13.2 10.9 - 14.4 % [facility] Mean Platelet Volume 11.1 9.0 - 12.0 fL [facility] NRBC% auto 0.0 % [facility] NRBC Absolute 0.000 0.000 - 0.012 x10(3)/mc L [facility] Blood specimen (specimen) 07/14/2016 12:21 PM EDT 07/14/2016 12:29 PM EDT Narrative Resulting Agency Comment Spec In Lab L Karthik Barlow MD HEMATOLOGY ORDERABLE S Performing Organization Address City/[facility]/ZIP Co de Phone Number [facility] [place] [address] * (ABNORMAL) Sedimentation rate (07/14/2016 12:21 PM EDT) Sedimentation Rate Automated 17(H) 0 - 15 mm/hr [facility] Blood specimen (specimen) 07/14/2016 12:21 PM EDT 07/14/2016 12:29 PM EDT Narrative Resulting Agency Comment Spec In Lab L Karthik Barlow MD HEMATOLOGY ORDERABLE S [facility] [place] [address] * Comprehensive metabolic panel (non-fasting) (07/14/2016 12:21 PM EDT) Glucose 147 65 - 199 mg/dL [facility] Comment:Diabetes: >=200 mg/d L plus symptoms Blood Urea Nitrogen 17 10 - 20 mg/dL [facility] Creatinine 1.04 0.80 - 1.50 mg/dL [facility] Comment: Please note that the pediatric reference intervals supplied above were not validated at [facility]. Results from pediatric patients should be interpreted in conjunction to the patient's age, height and muscle mass. Sodium 140 135 - 145 mmol/L [facility] Potassium 4.6 3.5 - 5.0 mmol/L [facility] Comment: Please note: ??Patients with WBC >100,000 may have falsely elevated Potassium levels. ??For accurate Potassium quantification in these patients send serum separator tube (gold top) for subsequent determinations. ??Contact the Clinical Chemistry Laboratory if there are any questions. Chloride 102 98 - 107 mmol/L [facility] Carbon Dioxide 25 22 - 31 mmol/L [facility] Anion Gap 13 5 - 15 mmol/L [facility] Calcium 9.7 8.5 - 10.5 mg/dL [facility] Protein, Total 7.9 6.1 - 8.0 gm/dL [facility] Albumin 4.4 3.2 - 5.2 gm/dL [facility] Aspartate Aminotransferase 15 0 - 39 unit/L [facility] Alanine Aminotransferase 20 0 - 55 unit/L [facility] Alkaline Phosphatase 65 40 - 120 unit/L [facility] Bilirubin, Total 0.4 0.2 - 1.3 mg/dL [facility] Bilirubin, Direct 0.1 0.0 - 0.3 mg/dL [facility] Est Glomerular Filtration Rate >60 >=60 [facility] Comment: This estimated GFR [...] the following links into your internet browser. [email or web address] Blood specimen (specimen) 07/14/2016 12:21 PM EDT 07/14/2016 12:29 PM EDT Narrative Resulting Agency Comment Spec In Lab L Karthik Barlow MD CHEMISTRY ORDERABLES [facility] [place] [address] * High Sensitivity CRP (07/14/2016 12:21 PM EDT) [facility] C-Reactive Protein High Sensitivity 4.8 mg/L [facility] [...] Lab L Karthik Barlow MD CHEMISTRY ORDERABLES [facility] [place] [address] documented in this encounter Visit Diagnoses Diagnosis Chronic ulcerative enterocolitis, unspecified complication Acute amebic dysentery Acute amebic dysentery without mention of abscess documented in this encounter Care Teams Investment Recovery Technician Relationship Specialty Start Date End Date Maximilian Fall MD [address] [place] [address] PCP - General 10/01/11 02/13/21 documented as of this encounter
--- OUTSIDE RECORDS SUMMARY | 2024-07-18 14:30 | XMS_ITS | Encounter Summary ---
Author Organization [facility] Address [place] [id number] Care Team Providers Care Matchbook Assembler Name Role Phone Maximilian Fall MD Primary Care Provider Reason for Referral * Diagnostic Test (Routine) - Closed Specialty Diagnoses / Procedures Referred By Contac t Referred To Contact Radiology Diagnoses Postoperative wound abscess, initial encounter Procedures CT Retroperitoneal Abscess Drain Minnie Johnson MD [facility] [place] [address] [facility] [place] [place] [address] Referral ID Status Reason Start Date Expiration Date V isits Requested Visits Authorized [id number] Closed Specialty Service Requested 03/22/2016 03/22/2017 1 1 Reason for Visit * Diagnostic Test (Routine) - Closed Specialty Diagnoses / Procedures Referred By Contac t Referred To Contact Radiology Diagnoses Postoperative wound abscess, initial encounter Procedures CT Retroperitoneal Abscess Drain Minnie Johnson MD [facility] [place] [address] [facility] [place] [place] [address] Referral ID Status Reason Start Date Expiration Date V isits Requested Visits Authorized [id number] Closed Specialty Service Requested 03/22/2016 03/22/2017 1 1 Encounter Details Date Type Department Care Team (Latest Contact Info) Description 03/22/2016 10:40 AM EDT - 03/22/2016 11:59 PM EDT Hospital [place] [address] Shireen Hurtado MD [facility] [place] [address] Postoperative wound abscess, initial encounter Discharge Disposition: [...] is during regular office hours, please call [phone]. If it is after regular office hours, or on weekends or holidays, please call [phone] and ask to speak to the Tank Wagon Driver carton stamper for Interventional Radiology. You have received medication [...] and will be transferred back to [facility] following the procedure. Addendum: The patient's history [...] visible) Minnie Johnson MD Radiology, PGY-2 Pager [phone] * Danyell Doyle RN - 03/22/2016 10:29 AM EDT [facility] Name: NAYA RODRIGUEZ Date of : 1950 AGE 65 y.o. Address: [address] [place] [phone] (home) Mobile: Telephone Information: Referring Provider: Minnie [...] COLONOSCOPY, DIAGNOSTIC performed by Dion OSULLIVAN at [facility] ??? Pro sigmoidoscopy, diagnostic 03/16/2012 FLEXIBLE SIGMOIDOSCOPY performed by YUDI MALLOY at [facility] ??? Upper gi endoscopy, exam 10/01/2012 UPPER GI ENDOSCOPY performed by Dion OSULLIVAN at [facility] ??? Pro colonoscopy, diagnostic 07/13/2014 COLONOSCOPY, DIAGNOSTIC performed by Dion Osullivan MD at [facility] Date/Procedure Med's given/comments No previous [...] CT-guided RLQ drainage catheter placement (acc # [id number]) Indication : 65 y.o. male with PMHx significant for asthma, diabetes, and ulcerative colitis who isstatus post laparoscopic appendectomy on 03/13/2016 who noted RLQ pain several days post-op. He presented to [facility] ED and underwent a CT scan with findings consistent with RLQ abscess. We have been consulted for CT guided abscess drain placement. The patient has beenadmitted to [facility] and will be transferred back to [facility] following the procedure. . Technique: After discussing [...] AM EDT Office [place] [address] Dion Osullivan MD [facility] [place] [address] 09/01/2024 9:40 AM EDT Office Visit Cardiology at [address] [place] [address] Franky Shaver MD [facility] [place] [address] 09/01/2024 11:20 AM EDT Office Visit Dermatology at [facility] [address] [place] [phone] Gómez Mercer MD [facility] DR EDDIE SANCHE[place] [address] 09/21/2024 2:45 PM EDT Office Visit Pain and Spine Center at [facility] [place] [place] [address] Trung Hoyos MD [facility] [place] [address] documented as of this encounter Procedures Procedure [...] CT-guided RLQ?? drainage catheter placement (ACC # [id number]) Indication : 65 y.o. male with PMHx [...] and will be transferred back to [facility] following the procedure. Technique: After discussing risks [...] EDT) Anaerobic Culture No anaerobic organisms isolated [facility] Specimen from abscess (specimen) [place] / Unknown 03/22/2016 10:54 AM EDT 03/22/2016 12:52 PM EDT Comment:RLQ PAIN SEVERAL DAY S POST-OP. HE PRESENTED TO [facility] ED AND UNDERWENT A CT SCAN WITH FINDINGS CONSISTENT WITH RLQ ABSCESS. S/P APPY. Narrative Resulting Agency Comment Spec In Lab Shireen Hurtado MD MICROBIOLOGY - GENER AL ORDERABLES Performing Organization Address City/[facility]/ZIP Co de Phone Number [facility] [place] [address] * (ABNORMAL) Wound Aspirate/Abscess Culture (03/22/2016 10:54 AM EDT) Abscess/Wound Aspirate Culture Many Escherichia coli(A) [facility] Gram Stain Many White Blood Cells seen Many Gram Negative Rods seen (A) [facility] Organism Escherichia coli(A) [facility] Organism Gram Negative Rods(A) [facility] Specimen from abscess (specimen) [place] / Unknown 03/22/2016 10:54 AM EDT 03/22/2016 12:52 PM EDT Comment:RLQ PAIN SEVERAL DAY S POST-OP. HE PRESENTED TO [facility] ED AND UNDERWENT A CT SCAN [...] - GENER AL ORDERABLES Performing Organization Address [facility]/ZIP Co de Phone Number [facility] [place] [address] documented in this encounter Visit Diagnoses Diagnosis [...] mL/hr documented in this encounter Care Teams Matchbook Assembler Relationship Specialty Start Date End Date Maximilian Fall MD [address] [facility] 1 [place] [address] PCP - General 10/01/11 02/13/21 documented as of this encounter
--- OUTSIDE RECORDS SUMMARY | 2024-07-18 14:31 | XMS_ITS | Encounter Summary ---
Author Organization [facility] [place] [address] Care Team Providers Care Parts Counter Specialist Name Role Phone Maximilian Fall MD Primary Care Provider [phone] Reason for Visit * Reason Onset Date Comments Medication Refill 11/22/2012 Encounter Details Date Type Department Care Team (Late st Contact Info) Description 11/22/2012 Ref[place] [address] Dion Barlow MD [facility] [place] [address] Ulcerative colitis (Primary Dx) Social History Tobacco [...] 9:00 AM EDT Office [place] [phone] Dion Barlow MD [facility] [place] [address] 09/01/2024 9:40 AM EDT Office Visit Cardiology at [address] [place] [address] Franky Shaver MD [facility] [place] [address] 09/01/2024 11:20 AM EDT Office Visit Dermatology at [facility] [address] [place] [phone] Gómez Mercer MD [facility] DR [place] [address] 09/21/2024 2:45 PM EDT Office Visit Pain and Spine Center at [facility] [place] [address] Trung Hoyos MD [facility] [place] [address] documented as of this encounter Visit Diagnoses Diagnosis Ulcerative colitis- Primary Ulcerative colitis, unspecified documented in this encounter Care Teams Parts Counter Specialist Relationship Specialty Start Date End Date Maximilian Fall MD [address] [facility] 1 [place] [address] PCP - General 10/01/11 02/13/21 documented as of this encounter
--- OUTSIDE RECORDS SUMMARY | 2024-07-18 14:31 | XMS_ITS | Encounter Summary ---
Author Organization [facility] Address [facility] [place] [address] Care Team Providers Care Silo Man Name Role Phone Maximilian Fall MD Primary Care Provider [phone] Encounter Details Date Type Department Care Team (Late st Contact Info) Description 11/05/2015 Telephone [place] [phone] Bethany Trivedi, RN Social History Tobacco Use [...] 9:00 AM EDT Office [place] [phone] Dion Barlow MD [facility] [place] [address] 09/01/2024 9:40 AM EDT Office Visit Cardiology at [address] [phone] Franky Shaver MD [facility] [place] [address] 09/01/2024 11:20 AM EDT Office Visit Dermatology at [facility] [address] [place] [address] Gómez Mercer MD [facility] [place] [address] 09/21/2024 2:45 PM EDT Office Visit [place] [phone] Trung Hoyos MD [facility] [place] [address] documented as of this encounter Results * (ABNORMAL) Sedimentation rate (11/06/2015 10:24 AM EST) Sedimentation Rate Automated 22(H) 0 - 15 mm/hr [facility] Blood specimen (specimen) 11/06/2015 10:24 AM EST 11/06/2015 10:28 AM EST Narrative Resulting Agency Comment Spec In Lab Dion Barlow MD HEMATOLOGY ORDERABLE S [facility] * (ABNORMAL) Comprehensive metabolic panel (non-fasting) (11/06/2015 10:24 AM EST) [facility] Glucose 81 65 - 199 mg/dL [facility] Comment:Diabetes: >=200 mg/d L plus symptoms Blood Urea Nitrogen 14 10 - 20 mg/dL [facility] Creatinine 1.15 0.80 - 1.50 mg/dL [facility] Comment: Please note that the pediatric reference intervals supplied above were not validated at [facility]. Results from pediatric patients should be [...] the following links into your internet browser. [email or web address] Blood specimen (specimen) 11/06/2015 10:24 AM EST 11/06/2015 10:28 AM EST Narrative Resulting Agency Comment Spec In Lab L Karthik Barlow MD CHEMISTRY ORDERABLES Performing Organization Address [facility] de Phone Number [facility] FREDERICK * High Sensitivity CRP (11/06/2015 10:24 AM EST) C-Reactive Protein High Sensitivity 7.9 mg/L [facility] Comment: Interpretations: 1) For accurate [...] CHEMISTRY ORDERABLES Performing Organization Address [facility] Phone Number DURGA FREDERICK documented in this encounter Visit Diagnoses Diagnosis Ulcerative colitis, without complications Diarrhea documented in this encounter Care Teams Silo Man Relationship Specialty Start Date End Date Maximilian Fall MD [address] [place] [address] [address] [place] [address] PCP - General 10/01/11 02/13/21 documented as of this encounter
--- OUTSIDE RECORDS SUMMARY | 2024-07-18 14:31 | XMS_ITS | Encounter Summary ---
Author Organization [facility] Address [facility] [place] [address] Care Team Providers Care Data Processing Operator Name Role Phone Maximilian Fall MD Primary Care Provider [phone] Encounter Details Date Type Department Care Team (Late st Contact Info) Description 09/11/2014 Orders [place] [phone] Bethany Trivedi RN Other ulcerative colitis (Primary [...] 9:00 AM EDT Office [place] [phone] Dion Barlow MD [facility] [place] [address] 09/01/2024 9:40 AM EDT Office Visit Cardiology at [address] [phone] Franky Shaver MD [facility] [place] [address] 09/01/2024 11:20 AM EDT Office Visit Dermatology at [facility] [address] [place] [address] Gómez Mercer MD [facility] DR [place] [address] 09/21/2024 2:45 PM EDT Office Visit Pain and Spine Center at [facility] ([place] [address] Trung Hoyos MD [facility] [place] [address] documented as of this encounter Visit Diagnoses Diagnosis Other ulcerative colitis- Primary documented in this encounter Care Teams Data Processing Operator Relationship Specialty Start Date End Date Maximilian Fall MD [address] [place] [address] PCP - General 10/01/11 02/13/21 documented as of this encounter
--- OUTSIDE RECORDS SUMMARY | 2024-07-18 14:31 | XMS_ITS | Encounter Summary ---
Author Organization [facility] [place] [address] Care Team Providers Care Agency Service Representative Name Role Phone Maximilian Fall MD Primary Care Provider [phone] Reason for Visit * Reason Onset Date Comments Medication Refill 04/05/2014 Encounter Details Date Type Department Care Team (Late st Contact Info) Description 04/05/2014 Refill [place] [address] Dion Barlow MD [facility] [place] [address] Social History Tobacco Use Types Packs/Day Years [...] 9:00 AM EDT Office Visit [place] [address] Dion Barlow MD [facility] [place] [address] 09/01/2024 9:40 AM EDT Office Visit Cardiology at [address] [place] [address] Franky Shaver MD [facility] [place] [address] 09/01/2024 11:20 AM EDT Office Visit Dermatology at [facility] [address] [place] [address] Gómez Mercer MD [facility] [place] [address] 09/21/2024 2:45 PM EDT Office Visit Pain and Spine Center at [facility] [place] [phone] Trung Hoyos MD [facility] [place] [address] documented as of this encounter Visit Diagnoses Not on filedocumented in this encounter Care Teams Agency Service Representative Relationship Specialty Start Date End Date Maximilian Fall MD [address] [facility] 1 [place] [address] PCP - General 10/01/11 02/13/21 documented as of this encounter
--- OUTSIDE RECORDS SUMMARY | 2024-07-18 14:31 | XMS_ITS | Encounter Summary ---
Author Organization [facility] [place] [address] Care Team Providers Care Behaviour Support Teacher Name Role Phone Maximilian Fall MD Primary Care Provider [phone] Encounter Details Date Type Department Care Team (Late st Contact Info) Description 09/30/2012 Telephone [place] [phone] Lilliana Reece RN Social History Tobacco Use [...] 9:00 AM EDT Office [place] [address] Dion Barlow MD [facility] [place] [place] [address] 09/01/2024 9:40 AM EDT Office Visit Cardiology at [address] [place] [phone] Franky Shaver MD [facility] [place] [address] 09/01/2024 11:20 AM EDT Office [facility] at [facility] [address] [place] [phone] Gómez Mercer MD [facility] [address] 09/21/2024 2:45 PM EDT Office Visit [place] [phone] Trung Hoyos MD [facility] [place] [address] documented as of this encounter Visit Diagnoses Not on filedocumented in this encounter Care Teams Behaviour Support Teacher Relationship Specialty Start Date End Date Maximilian Fall MD [address] [facility] 1 [place] [address] PCP - General 10/01/11 02/13/21 documented as of this encounter
--- OUTSIDE RECORDS SUMMARY | 2024-07-18 14:31 | XMS_ITS | Encounter Summary ---
Author Organization [facility] Address [facility] [place] [address] Care Team Providers Care Hospital Recruiter Name Role Phone Maximilian Fall MD Primary Care Provider [phone] Encounter Details Date Type Department Care Team (Late st Contact Info) Description 09/11/2014 10:00 AM EDT Follow-[place] [address] Dion Barlow MD [facility] [place] [address] Ulcerative colitis, other complication (Primary Dx) Discharge [...] the sigmoid nl ?? Repeat exam 11/27/11 ([facility] [place] mildly active colitis [...] 6 months or sooner. Davina Barlow MD Currency Machine Operatorsewer pipe sorter Section of Gastroenterology [place] [address] documented in this encounter Plan of Treatment Upcoming Encounters Date Type Department Care Team (Late st Contact Info) Description 08/15/2024 9:00 AM EDT Office Visit [place] [address] Dion Barlow MD [facility] [place] [address] 09/01/2024 9:40 AM EDT Office Visit Cardiology at [address] [phone] Franky Shaver MD [facility] [place] [address] 09/01/2024 11:20 AM EDT Office Visit Dermatology at [facility] [address] [place] [address] Gómez Mercer MD [facility] DR EDDIE [place] [address] 09/21/2024 2:45 PM EDT Office Visit [facility] [place] [address] Trung Hoyos MD [facility] [place] [address] documented as of this encounter Visit Diagnoses Diagnosis Ulcerative colitis, other complication- Primary documented in this encounter Care Teams Hospital Recruiter Relationship Specialty Start Date End Date Maximilian Fall MD [address] [place] [address] PCP - General 10/01/11 02/13/21 documented as of this encounter
--- OUTSIDE RECORDS SUMMARY | 2024-07-18 14:31 | XMS_ITS | Encounter Summary ---
Author Organization [facility] Address [facility] [place] [address] Care Team Providers Care Partition Assembler Name Role Phone Maximilian Fall MD Primary Care Provider [phone] Reason for Visit * Reason Comments Follow-up Encounter Details Date Type Department Care Team (Late st Contact Info) Description 06/05/2014 9:30 AM EDT [place] [address] Marcelle Weinberg, JAZMINE [facility] [place] [address] Other ulcerative colitis (Primary Dx) Discharge Disposition: [...] ??? Ulcerative colitis Colonoscopy 04/08/10 (Dr. Gomes [facility]) - inflammation only within the rectum and sigmoid; extent of the exam was to the hepatic flexure; biopsies proximal to the sigmoid nl Repeat exam 11/27/11 ([facility] [place]): mildly active colitis in the sigmoid [...] 9:00 AM EDT Office [place] [address] Dion Barlow MD [facility] [address] 09/01/2024 9:40 AM EDT Office Visit Cardiology at [address] [phone] Franky Shaver MD [facility] [place] [address] 09/01/2024 11:20 AM EDT Office Visit Dermatology at [facility] [address] [place] [address] Gómez Mercer MD [facility] DR [place] [address] 09/21/2024 2:45 PM EDT Office Visit [place] [address] Trung Hoyos MD [facility] [place] [address] Scheduled Orders Name Type Priority Associated Diagnoses Orde r Schedule COLONOSCOPY Procedures Routine Other ulcerative colitis Ordered: 06/05/2014 documented as of this encounter Visit Diagnoses Diagnosis Other ulcerative colitis- Primary documented in this encounter Care Teams Partition Assembler Relationship Specialty Start Date End Date Maximilian Fall MD [address] [place] [address] PCP - General 10/01/11 02/13/21 documented as of this encounter
--- OUTSIDE RECORDS SUMMARY | 2024-07-18 14:31 | XMS_ITS | Encounter Summary ---
Author Organization [facility] Address [facility] [place] [address] Care Team Providers Care Window Cutter Name Role Phone Maximilian Fall MD Primary Care Provider [phone] Encounter Details Date Type Department Care Team (Latest Contact Info) Description 07/13/2014 1:25 PM EDT - 07/13/2014 4:30 PM EDT Hospital Encounter [place] [address] Dion Osullivan MD [facility] [place] [address] Discharge Disposition: Home Social History Tobacco Use [...] - 07/13/2014 4:14 PM EDT Please call [phone], before 5pm with problems, questions or concerns, after 5pm call the Hospital at [phone] and ask to speak to the Counter Attendant conduit bender and the badger distiller operator will contactthat person for you. Discharge [...] through Care Everywhere. * COLONOSCOPY : POSTOP (ARABIC) documented in this encounter Medications at Time [...] Osullivan MD - 07/13/2014 3:57 PM EDT [facility] Operative Note Patient Name: Naya Rodriguez : [id number] MR#: [id number] Case Date: 07/13/2014 Surgeon: Surgeon(s) and Role: [...] AM EDT Office [place] [address] Dion Osullivan MD [facility] [place] [address] 09/01/2024 9:40 AM EDT Office Visit Cardiology at [address] [place] [address] Franky Shaver MD [facility] [place] [address] 09/01/2024 11:20 AM EDT Office Visit Dermatology at [facility] [address] [place] [address] Gómez Mercer MD [facility] [address] 09/21/2024 2:45 PM EDT Office Visit [facility] [place] [address] Trung Hoyos MD [facility] [place] [address] documented as of this encounter Procedures Procedure [...] Name: ?? NAYA RODRIGUEZ ? Acc #: ?[id number] ?Pt. ? Col Date: ?? 07/13/2014 ? [...] Name: ?? NAYA RODRIGUEZ ? Acc #: ?[id number] ?Pt. ? Col Date: ?? 07/13/2014 ? /Sex: ?1950,(64 years),Male ? Rec Date: ?? 07/13/2014 ? LOC: ?4T ? SURGICAL PATHOLOGY ? Clinical History: ? 64-year-old with a history of left sided UC ? Clinical Diagnosis: ? Same 07/14/2014 4:08 PM EDT [facility] GI Biopsy 07/13/2014 3:58 PM EDT 07/13/2014 3:58 PM EDT GI Biopsy 07/13/2014 3:58 PM EDT 07/13/2014 3:58 PM EDT GI Biopsy 07/13/2014 3:58 PM EDT 07/13/2014 3:58 PM EDT L Karthik Osullivan MD PATHOLOGY/CYTOLOGY O CEE [place] [address] * Specimen to Pathology (surgical or derm) (07/13/2014 3:58 PM EDT) AP Specimen 07/13/2014 3:58 PM EDT 07/13/2014 3:58 PM EDT Narrative JO-ANNGIOVANNI COLBERTIUM - 07/13/2014 3:58 PM EDT Specimen requisition ordered. ??Separate Pathology report to follow L Karthik Osullivan MD PATHOLOGY/CYTOLOGY O CEE Performing Organization Address [facility] Co de Phone [...] [facility]/ZIP Co de Phone Number DURGA FREDERICK [...] EDT) Pathologist [facility] COLONOSCOPY [facility] End[facility] Patient Name: Naya Rodriguez ? Procedure Date: 07/13/2014 2:51 PM ? Date of : 1950 ? Age: 64 ? Order #: [id number] ? Procedure: ? Colonoscopy Indications: ? Follow-up of left-sided chronic ? ulcerative colitis Providers: ? Davina Osullivan MD, Emily Quinn, ? RN, Luna Connors, RONY, Cam Ghosh ? Doug, Prestressed Concrete Laborer Referring MD: ?Maximilian Fall MD Medicines: ? [...] Glucose, POC 167 60 - 199 mg/dL [facility] Comment: Supplemental ranges: <140 mg/dL before meals <180 mg/dL all other times of the day Blood specimen (specimen) 07/13/2014 1:59 PM EDT 07/13/2014 1:59 PM EDT L Karthik Osullivan MD POINT OF CARE TEST O RDERABLES [facility] documented in this encounter Visit Diagnoses [...] uncomfortable) documented in this encounter Care Teams Window Cutter Relationship Specialty Start Date End Date Maximilian Fall MD [address] [place] [address] PCP - General 10/01/11 02/13/21 documented as of this encounter
--- OUTSIDE RECORDS SUMMARY | 2024-07-18 14:31 | XMS_ITS | Encounter Summary ---
Author Organization [facility] Address [facility] [place] [address] Care Team Providers Care Photographic Restorer Name Role Phone Maximilian Fall MD Primary Care Provider [phone] Reason for Visit * Reason Onset Date Comments Medication Refill 11/03/2013 Encounter Details Date Type Department Care Team (Late st Contact Info) Description 11/03/2013 Refill [place] [address] Dion Barlow MD [facility] [address] Social History Tobacco Use Types Packs/Day Years [...] with Dr Barlow and it should be [id number] take 2 tabs twice a day or 2GM documented in this encounter Plan of Treatment Upcoming Encounters Date Type Department Care Team (Late st Contact Info) Description 08/15/2024 9:00 AM EDT Office Visit [place] [address] Dion Barlow MD [facility] [place] [address] 09/01/2024 9:40 AM EDT Office Visit Cardiology at [address] [place] [address] Franky Shaver MD [facility] [place] [address] 09/01/2024 11:20 AM EDT Office Visit Dermatology at [place] [address] [place] [address] Gómez Mercer MD [facility] [place] [address] 09/21/2024 2:45 PM EDT Office Visit [facility] [place] [address] Trung Hoyos MD [facility] [address] documented as of this encounter Visit Diagnoses Not on filedocumented in this encounter Care Teams Photographic Restorer Relationship Specialty Start Date End Date Maximilian Fall MD [address] [place] [address] PCP - General 10/01/11 02/13/21 documented as of this encounter
--- OUTSIDE RECORDS SUMMARY | 2024-07-18 14:31 | XMS_ITS | Encounter Summary ---
Author Organization [facility] Address [facility] [place] [address] Care Team Providers Care University Professor Name Role Phone Maximilian Fall MD Primary Care Provider [phone] Encounter Details Date Type Department Care Team (Late st Contact Info) Description 07/13/2014 2:30 PM EDT - 07/13/2014 3:30 PM EDT [place] [address] Dion Osullivan MD [facility] [place] [address] COLONOSCOPY, DIAGNOSTIC (WRVU 3.26) Social History Tobacco [...] - 07/13/2014 4:14 PM EDT Please call [phone], before 5pm with problems, questions or concerns, after 5pm call the Hospital at [phone] and ask to speak to the Surgical Coordinator gerontology aide and the front end loader operator will contactthat person for you. Discharge [...] through Care Everywhere. * COLONOSCOPY : POSTOP (SPANISH) documented in this encounter Medications at Time [...] Osullivan MD - 07/13/2014 3:57 PM EDT [facility] [place] Note Patient Name: Naya Rodriguez : [id number] MR#: [id number] Case Date: 07/13/2014 Surgeon: Surgeon(s) and Role: [...] 9:00 AM EDT Office [place] [address] Dion Osullivan MD [facility] [place] [address] 09/01/2024 9:40 AM EDT Office Visit Cardiology at [address] [place] [address] Franky Shaver MD [facility] [place] [address] 09/01/2024 11:20 AM EDT Office Visit Dermatology at [facility] [address] [place] [address] Gómez Mercer MD [facility] [place] [address] 09/21/2024 2:45 PM EDT Office Visit [place] [address] Trung Hoyos MD [facility] [place] [address] documented as of this encounter Procedures Procedure [...] (07/13/2014 3:58 PM EDT) Final Diagnosis ? [facility] ? Provider: ?? Dion OSULLIVAN ?Pt. Name: ?? NAYA RODRIGUEZ ? Acc #: ?[id number] ?Pt. ? Col Date: ?? 07/13/2014 ? [...] - Mucosal biopsies - R colon ? [facility] ? Provider: ?? Dion OSULLIVAN ?Pt. Name: ?? NAYA RODRIGUEZ ? Acc #: ?[id number] ?Pt. ? Col Date: ?? 07/13/2014 ? [...] O RDMELISSA Performing Organization Address City/[facility]/ZIP Co de Phone Number [place] [address] * Specimen to Pathology (surgical or derm) (07/13/2014 3:58 PM EDT) AP Specimen 07/13/2014 3:58 PM EDT 07/13/2014 3:58 PM EDT Narrative JO-ANNGIOVANNI COLBERTIUM - 07/13/2014 3:58 PM EDT Specimen requisition ordered. ??Separate Pathology report to follow L Karthik Osullivan MD PATHOLOGY/CYTOLOGY O RDMELISSA Performing Organization Address [facility] Co de Phone Number DURGA FREDERICK * Specimen to Pathology (surgical or derm) (07/13/2014 3:58 PM EDT) AP Specimen 07/13/2014 3:58 PM EDT 07/13/2014 3:58 PM EDT Narrative JO-ANNGIOVANNI COLBERTIUM - 07/13/2014 3:58 PM EDT Specimen requisition ordered. ??Separate Pathology report to follow L Karthik Osullivan MD PATHOLOGY/CYTOLOGY O CEE Performing Organization Address [facility] Co de Phone Number DURGA FREDERICK * Specimen to Pathology (surgical or derm) (07/13/2014 3:58 PM EDT) AP Specimen 07/13/2014 3:58 PM EDT 07/13/2014 3:58 PM EDT Narrative DURGA COLBERTIUM - 07/13/2014 3:58 PM EDT Specimen requisition ordered. ??Separate Pathology report to follow L Karthik Osullivan MD PATHOLOGY/CYTOLOGY O RDERAOMAR Performing Organization Address City/[facility] Co de Phone Number DURGA FREDERICK * COLONOSCOPY (07/13/2014 2:51 PM EDT) COLONOSCOPY [facility] Endoscopy Patient Name: Naya Rodriguez ? Procedure Date: 07/13/2014 2:51 PM ? Date of : 1950 ? Age: 64 ? Order #: [id number] ? Procedure: ? Colonoscopy Indications: ? Follow-up of left-sided chronic ? ulcerative colitis Providers: ? Davina Osullivan MD, Emily Quinn, ? RN, Luna Connors RN, Cam Ashley. ? Doug, Image Assembler Referring MD: ?Maximilian Fall MD Medicines: ? [...] Glucose, POC 167 60 - 199 mg/dL [facility] Comment: Supplemental ranges: <140 mg/dL before meals <180 mg/dL all other times of the day Blood specimen (specimen) 07/13/2014 1:59 PM EDT 07/13/2014 1:59 PM EDT L Karthik Osullivan MD POINT OF CARE TEST O RDERABLES Performing Organization Address City/State/[facility] Co nc Phone Number [facility] documented in this encounter Visit Diagnoses [...] uncomfortable) documented in this encounter Care Teams University Professor Relationship Specialty Start Date End Date Maximilian Fall MD [address] [place] [address] PCP - General 10/01/11 02/13/21 documented as of this encounter
--- OUTSIDE RECORDS SUMMARY | 2024-07-18 14:31 | XMS_ITS | Encounter Summary ---
Author Organization [facility] Address [facility] [place] [address] Care Team Providers Care Celery Cutter Name Role Phone More Naylor MD Primary Care Provider [phone] Reason for Visit * Reason Comments Follow-up Encounter Details Date Type Department Care Team (Late st Contact Info) Description 11/01/2013 2:00 PM EST [place] [address] Dion Barlow MD [facility] [place] [address] Ulcerative colitis (Primary Dx) Discharge Disposition: Home [...] ??? Ulcerative colitis Colonoscopy 04/08/10 (Dr. Gomes [facility]) - inflammation only within the rectum and sigmoid; extent of the exam was to the hepatic flexure; biopsies proximal to the sigmoid nl Repeat exam 11/27/11 ([facility] mildly active colitis in the sigmoid colon [...] has left-sided ulcerative colitis with persistently active [id number] symptom - now worse off of his [...] CC: MORE NAYLOR MD [address] [place] [address] documented in this encounter Plan of Treatment Upcoming Encounters Date Type Department Care Team (Late st Contact Info) Description 08/15/2024 9:00 AM EDT Office [place] [address] Dion Barlow MD [facility] [place] [address] 09/01/2024 9:40 AM EDT Office Visit Cardiology at [address] [place] [address] Franky Shaver MD [facility] [place] [address] 09/01/2024 11:20 AM EDT Office Visit Dermatology at [facility] [address] [place] [address] Gómez Mercer MD [facility] DR [place] [address] 09/21/2024 2:45 PM EDT Office Visit Pain and Spine Center at [facility] [place] [address] Trung Hoyos MD [facility] [place] [address] documented as of this encounter Procedures Procedure [...] Barlow MD HEMATOLOGY ORDERABLE S [facility] MILLENNIUM * (ABNORMAL) Comprehensive metabolic panel (non-fasting) (11/01/2013 3:39 PM EST) Glucose 110 60 - 199 mg/dL CERNER MILLENNIUM Comment:Diabetes: >=200 mg/d L plus symptoms Blood Urea Nitrogen 11 10 - 20 mg/dL [facility] MILLENNIUM Creatinine 0.91 0.80 - 1.50 mg/dL [facility] MILLENNIUM Comment: Please note that the pediatric reference intervals supplied above were not validated at [facility]. Results from pediatric patients should be interpreted [...] unspecified documented in this encounter Care Teams Celery Cutter Relationship Specialty Start Date End Date More Naylor MD [address] [place] [address] PCP - General 10/01/11 02/13/21 documented as of this encounter
--- OUTSIDE RECORDS SUMMARY | 2024-07-18 14:31 | XMS_ITS | Encounter Summary ---
Author Organization [facility] [place] [address] Care Team Providers Care Upholstery Repairer Name Role Phone Maximilian Fall MD Primary Care Provider [phone] Reason for Visit * Reason Comments Follow-up Encounter Details Date Type Department Care Team (Late st Contact Info) Description 11/06/2015 11:00 AM EST Office [place] [address] Marcelle Weinberg, JAZMINE [facility] [place] [address] Chronic ulcerative enterocolitis, unspecified complication; Abdominal pain, [...] Progress Notes * Marcelle Weinberg Dg Conte, EKG MONITOR TECH - 11/06/2015 10:28 AM EST Patient Active Problem List Diagnosis ??? Ulcerative colitis Overview Note: ?? Colonoscopy 04/08/10 (Dr. Gomes [facility]) - inflammation only within the rectum and sigmoid; extent of the exam was to the hepatic flexure; biopsies proximal to the sigmoid nl ?? Repeat exam 11/27/11 ([facility] mildly active colitis in the [...] MD at [facility] ENDOSCOPY Physical Exam Constitutional: He [...] 9:00 AM EDT Office [place] [address] Dion Osullivan MD [facility] [place] [address] 09/01/2024 9:40 AM EDT Office Visit Cardiology at [address] [place] [address] Franky Shaver MD [facility] [place] [address] 09/01/2024 11:20 AM EDT Office Visit Dermatology at [facility] [address] [place] [address] Gómez Mercer MD [facility] [place] [address] 09/21/2024 2:45 PM EDT Office Visit Pain and Spine Center at [facility] [place] [address] Trung Hoyos MD [facility] [place] [address] documented as of this encounter Results * C. Difficile Screen (11/06/2015 2:30 PM EST) Pathologist [facility] C Diff Interp Negative Negative CERNER MILLENNIUM Stool specimen (specimen) 11/06/2015 2:30 PM EST 11/06/2015 2:30 PM EST Narrative Resulting Agency Comment Spec In Lab L Karthik Osullivan MD MICROBIOLOGY - GENER AL ORDERABLES [facility] * (ABNORMAL) Urinalysis with reflex Culture [...] Urine Dipstick Hazy(A) Clear CERNER MILLENNIUM Specific [place] Urine Automated 1.020 1.002 - 1.030 CERNER [...] complication documented in this encounter Care Teams Upholstery Repairer Relationship Specialty Start Date End Date Maximilian Fall MD [address] [place] [address] PCP - General 10/01/11 02/13/21 documented as of this encounter
--- OUTSIDE RECORDS SUMMARY | 2024-07-18 14:31 | XMS_ITS | Encounter Summary ---
Author Organization [facility] Address [facility] [place] [address] Care Team Providers Care Core Drier Name Role Phone More Naylor MD Primary Care Provider [phone] Reason for Visit * Reason Comments Follow-up Encounter Details Date Type Department Care Team (Late st Contact Info) Description 04/02/2012 12:30 PM EDT Follow-Up [place] [address] Marcelle Weinberg, JAZMINE [facility] [place] [address] UC (ulcerative colitis) (Primary Dx) Discharge Disposition: [...] colitis Colonoscopy 04/08/10 (Dr. Gomes [facility]) - inflammation only within the rectum and sigmoid; extent of the exam was to the hepatic flexure; biopsies proximal to the sigmoid nl Repeat exam 11/27/11 ([facility] [...] MD [address] [facility] [address] documented in this encounter Plan of Treatment Upcoming Encounters Date Type Department Care Team (Late st Contact Info) Description 08/15/2024 9:00 AM EDT Office Visit [place] [phone] Dion Barlow MD [facility] [place] [address] 09/01/2024 9:40 AM EDT Office Visit Cardiology at [address] [phone] Franky Shaver MD [facility] [place] [address] 09/01/2024 11:20 AM EDT Office Visit Dermatology at [facility] [address] [place] [phone] Gómez Mercer MD [facility] DR EDDIE [place] [address] 09/21/2024 2:45 PM EDT Office Visit [facility] [place] [address] Trung Hoyos MD [facility] [place] [address] documented as of this encounter Procedures Procedure [...] MD HEMATOLOGY ORDERABLE S Performing Organization Address City/[facility]/ZIP Co de Phone Number DURGA FREDERICK [...] Barlow MD CHEMISTRY ORDERABLES Performing Organization Address [facility] de Phone Number [facility] * Amylase (04/02/2012 1:39 PM EDT) Amylase 32 28 - 100 unit/L CERNER MILLENNIUM Blood specimen (specimen) 04/02/2012 1:39 PM EDT 04/02/2012 1:48 PM EDT Narrative Resulting Agency Comment Spec In Lab L Karthik Barlow MD CHEMISTRY ORDERABLES Performing Organization Address [facility] Phone Number [facility] * High Sensitivity CRP (04/02/2012 1:39 [...] Barlow MD CHEMISTRY ORDERABLES Performing Organization Address [facility] Number [facility] * Sedimentation rate (04/02/2012 1:39 PM EDT) Sedimentation Rate Automated 12 0 - 15 mm/hr [facility] Blood specimen (specimen) 04/02/2012 1:39 PM EDT 04/02/2012 1:48 PM EDT Narrative Resulting Agency Comment Spec In Lab L Karthik Barlow MD HEMATOLOGY ORDERABLE S Performing Organization Address [facility] Number [facility] * (ABNORMAL) CMP w/fasting Glucose (04/02/2012 1:39 PM EDT) Glucose Fasting 158(H) 65 - 99 mg/dL [facility] Comment: ?Fasting* Glucose Interpretive Criteria Normal ?65-99 [...] of Diabetes Mellitus, Position Statement from the [place] Diabetes Association. ??Diabetes Care, Volume 33, Supplement [...] Lab L Karthik Barlow MD CHEMISTRY ORDERABLES [facility] * (ABNORMAL) CBC (with Diff) (04/02/2012 1:39 [...] unspecified documented in this encounter Care Teams Core Drier Relationship Specialty Start Date End Date More Naylor MD [address] [place] [address] PCP - General 10/01/11 02/13/21 documented as of this encounter
--- OUTSIDE RECORDS SUMMARY | 2024-07-18 14:31 | XMS_ITS | Encounter Summary ---
[place] [address] Care Team Providers Care Video Engineer Name Role Phone Maximilian Fall MD Primary Care Provider [phone] Encounter Details Date Type Department Care Team (Late st Contact Info) Description 09/30/2012 Telephone [place] [phone] Lilliana Reece RN Social History Tobacco Use [...] louis ----- Message ----- From: Lab In [facility] Chong Sent: 09/20/2012 11:34 AM [...] 9:00 AM EDT Office [place] [address] Dion Barlow MD [facility] [place] [address] 09/01/2024 9:40 AM EDT Office Visit Cardiology at [address] [place] [address] Franky Shaver MD [facility] [place] [address] 09/01/2024 11:20 AM EDT Office Visit Dermatology at [facility] [address] [place] [address] Gómez Mercer MD [facility] [place] [address] 09/21/2024 2:45 PM EDT Office Visit [facility] [place] [phone] Trung Hoyos MD [facility] [place] [address] documented as of this encounter Visit Diagnoses Not on filedocumented in this encounter Care Teams Video Engineer Relationship Specialty Start Date End Date Maximilian Fall MD [address] [place] [address] PCP - General 10/01/11 02/13/21 documented as of this encounter
--- OUTSIDE RECORDS SUMMARY | 2024-07-18 14:31 | XMS_ITS | Encounter Summary ---
Author Organization [facility] Address [facility] [place] [address] Care Team Providers Care Room Server Name Role Phone More Naylor MD Primary Care Provider [phone] Reason for Visit * Reason Comments Follow-up Encounter Details Date Type Department Care Team (Late st Contact Info) Description 03/06/2014 8:30 AM EDT Follow-[place] [address] Dion Barlow MD [facility] [place] [address] Ulcerative colitis, with rectal bleeding (Primary Dx) [...] ??? Ulcerative colitis Colonoscopy 04/08/10 (Dr. Gomes [facility]) - [...] or most commonly, upper respiratory infections; positive nbbx-awaxsn-suyuiiob DNA antibodies, and rarely a lupus-like syndrome; [...] CC: MORE NAYLOR MD [address] [place] [address] documented in this encounter Plan of Treatment Upcoming Encounters Date Type Department Care Team (Late st Contact Info) Description 08/15/2024 9:00 AM EDT Office Visit [place] [address] Dion Barlow MD [facility] [place] [address] 09/01/2024 9:40 AM EDT Office Visit Cardiology at [address] [phone] Franky Shaver MD [facility] [place] [address] 09/01/2024 11:20 AM EDT Office Visit Dermatology at [facility] [address] [place] [phone] Gómez Mercer MD [facility] [place] [address] 09/21/2024 2:45 PM EDT Office Visit [facility] [place] [phone] Trung Hoyos MD [facility] [place] [address] documented as of this encounter Procedures Procedure [...] Urine Dipstick Clear Clear CERNER MILLENNIUM Specific [place] Urine Automated 1.019 1.002 - 1.030 CERNER [...] L Karthik Barlow MD URINE ORDERABLES CERNER Crowd FactoryENNIUM * Differential, Automated (03/06/2014 9:39 AM EDT) Neutrophil % 64.8 34.0 - 71.0 % [facility] MILL[facility] Neutrophil Absolute 3.24 1.50 [...] Gran Absolute 0.01 0.00 - 0.05 x10(3)/mcL [facility] TIAGOENNIUM Blood specimen (specimen) 03/06/2014 9:39 AM EDT 03/06/2014 9:47 AM EDT L Karthik Barlow MD HEMATOLOGY ORDERABLE S [facility] * QuantiFERON-TB Gold (03/06/2014 9:39 AM EDT) Pathologist [facility] Quantiferon-TB Gold Negative Negative [facility] Comment: Nil (IU/mL)=0.03 TB Ag minus [...] Lab L Karthik Barlow MD CHEMISTRY ORDERABLES [facility] * High Sensitivity CRP (03/06/2014 9:39 AM [...] Primary documented in this encounter Care Teams Room Server Relationship Specialty Start Date End Date More Naylor MD [address] [place] [address] PCP - General 10/01/11 02/13/21 documented as of this encounter
--- OUTSIDE RECORDS SUMMARY | 2024-07-18 14:31 | XMS_ITS | Encounter Summary ---
[place] [address] Care Team Providers Care Mattress Filler Name Role Phone Maximilian Fall MD Primary Care Provider [phone] Encounter Details Date Type Department Care Team (Latest Contact Info) Description 11/06/2015 10:15 AM EST Laboratory Appointment Lab [address] [place] [phone] Ulcerative colitis, without complications; Diarrhea; Pain in [...] 9:00 AM EDT Office [place] [address] Dion Barlow MD [facility] [address] 09/01/2024 9:40 AM EDT Office Visit Cardiology at [address] [place] [phone] Franky Shaver MD [facility] [place] [address] 09/01/2024 11:20 AM EDT Office Visit Dermatology at [facility] [address] [place] [address] Gómez Mercer MD [facility] [place] [address] 09/21/2024 2:45 PM EDT Office Visit [place] [phone] Trung Hoyos MD [facility] [address] documented as of this encounter Procedures Procedure Name Priority Date/Time Associated Diagnosis Comments C. DIFFICILE SCREEN Routine 11/06/2015 2 :30 PM EST Pain in right hip Bilateral low back pain, with sciatica presence unspecified Abdominal pain, unspecified abdominal location Chronic ulcerative enterocolitis, unspecified complication STOOL CULTURE SCREEN ([facility]/CGP/APD/NLH) Routine 11/06/2015 1:49 PM EST Pain in [...] ulcerative enterocolitis, unspecified complication CRYPTOSPORIDIUM OOCYST ANTIGEN ([facility]/CGP/APD) Routine 11/06/2015 1:09 PM EST Pain in right hip Bilateral low back pain, with sciatica presence unspecified Abdominal pain, unspecified abdominal location Chronic ulcerative enterocolitis, unspecified complication GIARDIA/CRYPTOSPORIDIUM ANTIGENS ([facility]/CGP/APD/NLH) Routine 11/06/2015 1:09 PM EST Pain in right hip Bilateral low back pain, with sciatica presence unspecified Abdominal pain, unspecified abdominal location Chronic ulcerative enterocolitis, unspecified complication GIARDIA ANTIGEN ([facility]/CGP/APD/NLH) Routine 11/06/2015 1:09 PM EST Pain in [...] PM EST) C Diff Interp Negative Negative [facility] Stool specimen (specimen) 11/06/2015 2:30 PM EST 11/06/2015 2:30 PM EST Narrative Resulting Agency Comment Spec In Lab L Karthik Barlow MD MICROBIOLOGY - GENER AL ORDERABLES Performing Organization Address [facility] Phone Number [facility] * Shiga Toxin Detection (11/06/2015 1:49 PM EST) Pathologist [facility] Shiga Toxin Assay EIA Negative for Shiga Toxin 1 EIA Negative for Shiga Toxin 2 [facility] Stool specimen (specimen) 11/06/2015 1:49 PM EST 11/06/2015 2:33 PM EST Narrative Resulting Agency Comment Spec In Lab L Karthik Barlow MD MICROBIOLOGY - GENER AL ORDERABLES Performing Organization Address [facility] Phone Number [facility] * Campylobacter Antigen (11/06/2015 1:49 PM EST) Pathologist [facility] Campylobacter Ag Immunoassay Negative for Campylobacter Antigen [facility] Stool specimen (specimen) 11/06/2015 1:49 PM EST 11/06/2015 2:33 PM EST Narrative Resulting Agency Comment Spec In Lab L Karthik Barlow MD MICROBIOLOGY - GENER AL ORDERABLES Performing Organization Address [facility] de Phone Number [facility] * Stool culture (11/06/2015 1:49 PM EST) Stool Culture No enteric pathogens isolated [facility] Stool specimen (specimen) 11/06/2015 1:49 PM EST 11/06/2015 2:33 PM EST Narrative Resulting Agency Comment Spec In Lab L Karthik Barlow MD MICROBIOLOGY - GENER AL ORDERABLES Performing Organization Address [facility] Phone Number [facility] * Cryptosporidium Oocyst Antigen (11/06/2015 1:09 PM EST) Cryptosporidium Antigen Negative Negative [facility] Stool specimen (specimen) 11/06/2015 1:09 PM EST 11/06/2015 2:28 PM EST Narrative Resulting Agency Comment Spec In Lab L Karthik Barlow MD MICROBIOLOGY - GENER AL ORDERABLES Performing Organization Address [facility] Phone Number [facility] * Giardia antigen (11/06/2015 1:09 PM EST) Giardia Antigen Negative Negative [facility] Comment:Examination for othe r intestinal parasites requires foreign travel history. Stool specimen (specimen) 11/06/2015 1:09 PM EST 11/06/2015 2:28 PM EST Narrative Resulting Agency Comment Spec In Lab L Karthik Barlow MD MICROBIOLOGY - GENER AL ORDERABLES Performing Organization Address [facility] Phone Number [facility] * (ABNORMAL) Urine culture (11/06/2015 1:00 PM EST) Urine Culture 50,000-99,000 cfu/ml Escherichia coli(A) [facility] Organism Escherichia coli(A) [facility] Urine specimen obtained by clean catch procedure [...] Barlow MD MICROBIOLOGY - GENER AL ORDERABLES [facility] XtiumI[facility] * (ABNORMAL) Urinalysis with reflex Culture (11/06/2015 [...] Urine Dipstick Hazy(A) Clear CERNER MILLENNIUM Specific [place] Urine Automated 1.020 1.002 - 1.030 CERNER [...] metabolic panel (non-fasting) (11/06/2015 10:24 AM EST) [facility] Glucose 81 65 - 199 mg/dL CERNER MILLENNIUM Comment:Diabetes: >=200 mg/d L plus symptoms Blood Urea Nitrogen 14 10 - 20 mg/dL CERNER MILLENNIUM Creatinine 1.15 0.80 - 1.50 mg/dL CERNER MILLENNIUM Comment: Please note that the pediatric reference intervals supplied above were not validated at [facility]. Results from pediatric [...] the following links into your internet browser. [email or web address] Blood specimen (specimen) 11/06/2015 10:24 AM EST 11/06/2015 10:28 AM EST Narrative Resulting Agency Comment Spec In Lab Dion Barlow MD CHEMISTRY ORDERABLES Performing Organization Address [facility] de Phone Number DURGA ORDOÑEZZebra Digital AssetsCAROMONT [facility] * High Sensitivity CRP (11/06/2015 10:24 AM EST) C-Reactive Protein High Sensitivity 7.9 mg/L [facility] Comment: Interpretations: 1) For accurate cardiac risk [...] ORDERABLES Performing Organization Address [facility] de Phone Number DURGA FREDERICK documented in this encounter Visit Diagnoses Diagnosis Ulcerative colitis, without complications Diarrhea Pain in right hip Pain in joint, pelvic region and thigh Bilateral low back pain, with sciatica presence unspecified Abdominal pain, unspecified abdominal location Chronic ulcerative enterocolitis, unspecified complication documented in this encounter Care Teams Mattress Filler Relationship Specialty Start Date End Date Maximilian Fall MD [address] [place] [address] PCP - General 10/01/11 02/13/21 documented as of this encounter
--- OUTSIDE RECORDS SUMMARY | 2024-07-18 14:31 | XMS_ITS | Encounter Summary ---
Author Organization [facility] Address [facility] [place] [address] Care Team Providers Care Stone Banker Name Role Phone Maximilian Fall MD Primary Care Provider [phone] Reason for Visit * Reason Comments Follow-up Encounter Details Date Type Department Care Team (Late st Contact Info) Description 03/13/2015 1:00 PM EDT Follow-Up [place] [address] Dion Barlow MD [facility] [place] [address] Ulcerative colitis, other complication; Lethargy; Other ulcerative [...] Overview Note: ?? Colonoscopy 04/08/10 (Dr. Gomes [facility]) - inflammation only within the rectum and sigmoid; extent of the exam was to the hepatic flexure; biopsies proximal to the sigmoid nl ?? Repeat exam 11/27/11 ([facility]): mildly active colitis in the sigmoid colon [...] 6 months or sooner. Davina Barlow MD Ornamental Ironworking Supervisorfrench cord binder Section of Gastroenterology [place] [address] documented in this encounter Plan of Treatment Upcoming Encounters Date Type Department Care Team (Late st Contact Info) Description 08/15/2024 9:00 AM EDT Office Visit [place] [address] Dion Barlow MD [facility] [place] [address] 09/01/2024 9:40 AM EDT Office Visit Cardiology at [address] [address] Franky Shaver MD [facility] [place] [address] 09/01/2024 11:20 AM EDT Office Visit Dermatology at [address] [address] Gómez Mercer MD [facility] DR [place] [address] 09/21/2024 2:45 PM EDT Office Visit [facility] [place] [address] Trung Hoyos MD [facility] [place] [address] Scheduled Orders Name Type Priority Associated Diagnoses [...] ORDERABLE S Performing Organization Address [facility]/State/ZIP Co de Phone Number CERGIOVANNI ORDOÑEZENNIUM * [...] CHEMISTRY ORDERABLES Performing Organization Address [facility] Co de Phone Number DURGA COLBERTIUM * [...] CHEMISTRY ORDERABLES Performing Organization Address [facility]/ZIP Co de Phone Number JO-ANNGIOVANNI ORDOÑEZENNIUM * [...] supplied above were not validated at [facility]. Results from pediatric patients should be interpreted [...] the following links into your internet browser. [email or web address] Blood specimen (specimen) 03/13/2015 2:00 PM EDT 03/13/2015 2:14 PM EDT Narrative Resulting Agency Comment Spec In Lab L Karthik Barlow MD CHEMISTRY ORDERABLES DURGA FREDERICK documented in this encounter Visit Diagnoses Diagnosis Ulcerative colitis, other complication Lethargy Other malaise and fatigue Other ulcerative colitis documented in this encounter Care Teams Stone Banker Relationship Specialty Start Date End Date Maximilian Fall MD [address] [place] [address] PCP - General 10/01/11 02/13/21 documented as of this encounter
--- OUTSIDE RECORDS SUMMARY | 2024-07-18 14:31 | XMS_ITS | Encounter Summary ---
Author Organization [facility] Address [facility] [place] [address] Care Team Providers Care Dice Spotter Name Role Phone More Naylor MD Primary Care Provider [phone] Reason for Visit * Reason Comments Follow-up Encounter Details Date Type Department Care Team (Late st Contact Info) Description 09/20/2012 10:00 AM EDT Follow-[place] [address] Dion Barlow MD [facility] [place] [place] [address] Ulcerative colitis (Primary Dx); Dyspepsia; UC (ulcerative [...] ??? Ulcerative colitis Colonoscopy 04/08/10 (Dr. Gomes [facility]) - inflammation only within the rectum and sigmoid; extent of the exam was to the hepatic flexure; biopsies proximal to the sigmoid nl [facility]11 [facility] has left-sided ulcerative colitis with persistently active ckqe-pr-xdzvnbii symptoms andmildly active disease endoscopically. His colitis [...] CC: MORE NAYLOR MD [address] [facility] [address] documented in this encounter Plan of Treatment Upcoming Encounters Date Type Department Care Team (Late st Contact Info) Description 08/15/2024 9:00 AM EDT Office Visit [place] [address] Dion Barlow MD [facility] [place] [address] 09/01/2024 9:40 AM EDT Office Visit Cardiology at [address] [address] Franky Shaver MD [facility] [place] [address] 09/01/2024 11:20 AM EDT Office Visit Dermatology at [address] [address] Gómez Mercer MD [facility] [address] 09/21/2024 2:45 PM EDT Office Visit [facility] [place] [address] Trung Hoyos MD [facility] [place] [address] documented as of this encounter Procedures Procedure [...] MD HEMATOLOGY ORDERABLE S Performing Organization Address [facility] Co de Phone Number DURGA FREDERICK * (ABNORMAL) TSH (09/20/2012 11:17 AM EDT) Thyroid Stimulating Hormone 4.77(H) 0.27 - 4.20 mcIU/mL DURGA COLBERTIUM Blood specimen (specimen) 09/20/2012 11:17 AM EDT 09/20/2012 11:23 AM EDT Narrative Resulting Agency Comment Spec In Lab L Karthik Barlow MD CHEMISTRY ORDERABLES Performing Organization Address [facility] Phone Number DURGA COLBERTIUM * Lipase (09/20/2012 11:17 AM EDT) Lipase 32 0 - 60 unit/L DURGA COLBERTIUM Blood specimen (specimen) 09/20/2012 11:17 AM EDT 09/20/2012 11:23 AM EDT Narrative Resulting Agency Comment Spec In Lab L Karthik Barlow MD CHEMISTRY ORDERABLES Performing Organization Address [facility] Phone Number DURGA COLBERTIUM * High Sensitivity CRP (09/20/2012 11:17 AM EDT) C-Reactive Protein High Sensitivity 3.7 mg/L [facility] TIAGOBANNER B[facility]WOOD MEDICAL CENTERIUM Comment: Interpretations: 1) For cardiac risk assessment, [...] L Karthik Barlow MD CHEMISTRY ORDERABLES [facility] * (ABNORMAL) CMP w/fasting Glucose (09/20/2012 11:17 AM EDT) Glucose Fasting 110(H) 65 - 99 mg/dL [facility] Comment: ?Fasting* Glucose Interpretive Criteria Normal [...] of Diabetes Mellitus, Position Statement from the [place] [employer]. ??Diabetes Care, Volume 33, Supplement [...] NA, Jasmin AK, Edson TS, Diogenes AD, Sangtia AL[place] ROS[place]. Relative performance of the MDRD [...] unspecified documented in this encounter Care Teams Dice Spotter Relationship Specialty Start Date End Date More Naylor MD [address] [place] [address] PCP - General 10/01/11 02/13/21 documented as of this encounter
--- OUTSIDE RECORDS SUMMARY | 2024-07-18 14:31 | XMS_ITS | Encounter Summary ---
Author Organization [facility] Address [facility] [place] [address] Care Team Providers Care Casing Inspector Name Role Phone Maximilian Fall MD Primary Care Provider [phone] Encounter Details Date Type Department Care Team (Late st Contact Info) Description 10/01/2012 4:15 PM EST - 10/01/2012 4:45 PM EST [place] [address] Dion Osullivan MD [facility] [place] [address] UPPER GI ENDOSCOPY Social History Tobacco Use [...] GI ENDOSCOPY: WHAT TO EXPECT AT HOME (NEW ZEALANDER) documented in this encounter Medications at Time [...] Osullivan MD - 10/01/2012 5:07 PM EST [facility] Operative Note Patient Name: Naya Rodriguez : [id number] MR#: [id number] Case Date: 10/01/2012 Surgeon: Surgeon(s) and Role: [...] 9:00 AM EDT Office [place] [address] Dion Osullivan MD [facility] [place] [address] 09/01/2024 9:40 AM EDT Office Visit Cardiology at [address] [phone] Franky Shaver MD [facility] [place] [address] 09/01/2024 11:20 AM EDT Office Visit Dermatology at [address] [place] [phone] Gómez Mercer MD [facility] [place] [address] 09/21/2024 2:45 PM EDT Office Visit [place] [address] Trung Hoyos MD [facility] [place] [address] documented as of this encounter Procedures Procedure [...] 5:54 PM EST) Surgical Pathology Report ? [facility] ? Provider: ?? Dion OSULLIVAN ?Pt. Name: ?? NAYA RODRIGUEZ ? Acc #: ?[id number] ?Pt. ? Col Date: ?? 10/01/2012 ? [...] PATHOLOGY/CYTOLOGY O CEE Performing Organization Address City/[facility] Co de Phone Number DURGA FREDERICK * Specimen to Pathology (surgical or derm) (10/01/2012 5:09 PM EST) AP Specimen 10/01/2012 5:09 PM EST 10/01/2012 5:09 PM EST Narrative [facility] - 10/01/2012 5:09 PM EST Specimen requisition ordered. ??Separate Pathology report to follow L Karthik Osullivan MD PATHOLOGY/CYTOLOGY O CEE [facility] * UPPER GI ENDOSCOPY (10/01/2012 4:41 PM EST) UPPER GI ENDOSCOPY [facility] Endoscopy Patient Name: Naya Rodriguez ? Procedure Date: 10/01/2012 4:41 PM ? Date of : 1950 ? Age: 62 ? Order #: [id number] ? Procedure: ? Upper GI endoscopy Indications: ? Epigastric abdominal pain Providers: ? L Karthik Osullivan MD, Alannah Singletary, ? RN, Mona Osborne, Preventive Medicine Specialist Referring : ?Maximilian Fall MD Medicines: ? [...] SURGICAL ORD ERAOMAR Performing Organization Address City/[facility] Co de Phone Number PROVATION * POCT GLUCOSE (10/01/2012 4:27 PM EST) Glucose, POC 84 60 - 199 mg/dL [facility] Comment: Supplemental ranges: <110 mg/dL before meals [...] RN) documented in this encounter Care Teams Casing Inspector Relationship Specialty Start Date End Date Maximilian Fall MD [address] [place] [address] PCP - General 10/01/11 02/13/21 documented as of this encounter
--- OUTSIDE RECORDS SUMMARY | 2024-07-18 14:31 | XMS_ITS | Encounter Summary ---
Author Organization [facility] Address [facility] [place] [address] Care Team Providers Care Network Control Technician Name Role Phone Maximilian Fall MD Primary Care Provider [phone] Encounter Details Date Type Department Care Team (Late st Contact Info) Description 03/16/2012 Orders [place] [phone] Dion Barlow MD [facility] [place] [address] Ulcerative colitis (Primary Dx) Social History Tobacco [...] 9:00 AM EDT Office [place] [phone] Dion Barlow MD [facility] [place] [address] 09/01/2024 9:40 AM EDT Office Visit Cardiology at [address] [place] [phone] Franky Shaver MD [facility] [place] [address] 09/01/2024 11:20 AM EDT Office Visit Dermatology at [facility] [address] [place] [phone] Gómez Mercer MD [facility] DR EDDIE SANCHE[place] [address] 09/21/2024 2:45 PM EDT Office Visit [place] [phone] Trung Hoyos MD [facility] [place] [address] documented as of this encounter Visit Diagnoses Diagnosis Ulcerative colitis- Primary Ulcerative colitis, unspecified documented in this encounter Care Teams Network Control Technician Relationship Specialty Start Date End Date Maximilian Fall MD [address] [facility] 1 [place] [address] PCP - General 10/01/11 02/13/21 documented as of this encounter
--- OUTSIDE RECORDS SUMMARY | 2024-07-18 14:31 | XMS_ITS | Encounter Summary ---
Author Organization [facility] Address [facility] [place] [address] Care Team Providers Care Capital Project Engineer Name Role Phone More Naylor MD Primary Care Provider [phone] Reason for Visit * Reason Comments Ulcerative Colitis Encounter Details Date Type Department Care Team (Late st Contact Info) Description 04/21/2012 1:30 PM EDT Follow-[place] [address] Dion Barlow MD [facility] [place] [address] Ulcerative colitis (Primary Dx) Discharge Disposition: Home [...] Colonoscopy 04/08/10 (Dr. Gomes [facility]) - inflammation only within the rectum and sigmoid; extent of the exam was to the hepatic flexure; biopsies proximal to the sigmoid nl Repeat exam 11/27/11 ([facility] [...] has left-sided ulcerative colitis with persistently active ryqd-et-bqdbaqou symptoms andmildly active disease endoscopically. He failed [...] CC: MORE NAYLOR MD [address] [facility] [address] documented in this encounter Plan of Treatment Upcoming Encounters Date Type Department Care Team (Late st Contact Info) Description 08/15/2024 9:00 AM EDT Office [place] [address] Dion Barlow MD [facility] [place] [address] 09/01/2024 9:40 AM EDT Office Visit Cardiology at [address] [place] [address] Franky Shaver MD [facility] [place] [address] 09/01/2024 11:20 AM EDT Office Visit Dermatology at [facility] [address] [place] [phone] Gómez Mercer MD [facility] [place] [address] 09/21/2024 2:45 PM EDT Office Visit [facility] [place] [address] Trung Hoyos MD [facility] [place] [address] documented as of this encounter Visit Diagnoses Diagnosis Ulcerative colitis- Primary Ulcerative colitis, unspecified documented in this encounter Care Teams Capital Project Engineer Relationship Specialty Start Date End Date More Naylor MD [address] [facility] 1 [place] [address] PCP - General 10/01/11 02/13/21 documented as of this encounter
--- OUTSIDE RECORDS SUMMARY | 2024-07-18 14:31 | XMS_ITS | Encounter Summary ---
Author Organization [facility] Address [facility] [place] [address] Care Team Providers Care Film Archivist Name Role Phone Maximilian Fall MD Primary Care Provider [phone] Reason for Visit * Reason Comments Follow-up Encounter Details Date Type Department Care Team (Late st Contact Info) Description 09/17/2015 4:00 PM EDT Office [place] [address] Marcelle Weinberg, JAZMINE [facility] [place] [address] Left sided colitis, unspecified complication Social History [...] Note: ?? Colonoscopy 04/08/10 (Dr. Gomes [facility]) - inflammation only within the rectum and sigmoid; extent of the exam was to the hepatic flexure; biopsies proximal to the sigmoid nl ?? Repeat exam 11/27/11 ([facility] mildly active colitis in the [...] 9:00 AM EDT Office [place] [phone] Dion Barlow MD [facility] [place] [address] 09/01/2024 9:40 AM EDT Office Visit Cardiology at [address] [address] Franky Shaver MD [facility] [place] [address] 09/01/2024 11:20 AM EDT Office Visit Dermatology at [facility] [address] [place] [address] Gómez Mercer MD [facility] DR EDDIE [place] [address] 09/21/2024 2:45 PM EDT Office Visit [place] [phone] Trung Hoyos MD [facility] [place] [address] documented as of this encounter Procedures Procedure [...] MD HEMATOLOGY ORDERABLE S Performing Organization Address City/[facility]/ZIP Co de Phone Number CERGIOVANNI ORDOÑEZENNIUM [...] EDT) C-Reactive Protein High Sensitivity 2.9 mg/L [facility] Comment: Interpretations: 1) For accurate cardiac risk [...] Barlow MD CHEMISTRY ORDERABLES Performing Organization Address [facility] de Phone Number [facility] * (ABNORMAL) Sedimentation rate (09/17/2015 4:30 PM EDT) [facility] Sedimentation Rate Automated 17(H) 0 - 15 mm/hr [facility] Blood specimen (specimen) 09/17/2015 4:30 PM EDT 09/17/2015 4:33 PM EDT Narrative Resulting Agency Comment Spec In Lab L Karthik Barlow MD HEMATOLOGY ORDERABLE S Performing Organization Address [facility] Co de Phone Number [facility] * (ABNORMAL) CMP w/fasting Glucose (09/17/2015 4:30 [...] of Diabetes Mellitus, Position Statement from the [place] [employer]. ??Diabetes Care, Volume 33, Supplement 1, Nov 2009 Blood Urea Nitrogen 17 10 - 20 mg/dL CERNER MILLENNIUM Creatinine 1.10 0.80 - 1.50 mg/dL [facility] MILLENNIUM Comment: Please note that the pediatric reference intervals supplied above were not validated at [facility]. Results from pediatric patients should [...] the following links into your internet browser. [email or web address] Blood specimen (specimen) 09/17/2015 4:30 PM EDT 09/17/2015 4:33 PM EDT Narrative Resulting Agency Comment Spec In Lab L Karthik Barlow MD CHEMISTRY ORDERABLES UDRGA FREDERICK documented in this encounter Visit Diagnoses Diagnosis Left sided colitis, unspecified complication documented in this encounter Care Teams Film Archivist Relationship Specialty Start Date End Date Maximilian Fall MD [address] [place] [address] PCP - General 10/01/11 02/13/21 documented as of this encounter
--- OUTSIDE RECORDS SUMMARY | 2024-07-18 14:31 | XMS_ITS | Encounter Summary ---
Author Organization [facility] [place] [address] Care Team Providers Care Roller Varnisher Name Role Phone Maximilian Fall MD Primary Care Provider [phone] Encounter Details Date Type Department Care Team (Late st Contact Info) Description 09/21/2015 Telephone [place] [address] Marcelle Weinebrg, GARNETTER [facility] [place] [address] Social History Tobacco Use Types Packs/Day Years [...] AM EDT Office [place] [address] Dion Barlow MD [facility] [place] [address] 09/01/2024 9:40 AM EDT Office Visit Cardiology at [address] [address] Franky Shaver MD [facility] [place] [address] 09/01/2024 11:20 AM EDT Office Visit Dermatology at [facility] [address] [place] [address] óGmez eMrcer MD [facility] DR EDDIE [place] [address] 09/21/2024 2:45 PM EDT Office Visit [facility] Sp[facility] at [facility] [place] [address] Trung Hoyos MD [facility] [place] [address] documented as of this encounter Visit Diagnoses Not on filedocumented in this encounter Care Teams Roller Varnisher Relationship Specialty Start Date End Date Maximilian Fall MD [address] [place] [address] PCP - General 10/01/11 02/13/21 documented as of this encounter
--- OUTSIDE RECORDS SUMMARY | 2024-07-18 14:31 | XMS_ITS | Encounter Summary ---
Author Organization [facility] Address [facility] [place] [address] Care Team Providers Care Station Installation Supervisor Name Role Phone Maximilian Fall MD Primary Care Provider [phone] Encounter Details Date Type Department Care Team (Latest Contact Info) Description 10/01/2012 2:23 PM EST - 10/01/2012 6:31 PM EST Hospital Encounter [place] [address] Dion Osullivan MD [facility] [place] [address] Discharge Disposition: Home Social History Tobacco Use [...] GI ENDOSCOPY: WHAT TO EXPECT AT HOME (JORDANIAN) documented in this encounter Medications at Time [...] Osullivan MD - 10/01/2012 5:[address] [facility] Operative Note Patient Name: Naya Rodriguez : [id number] MR#: [id number] Case Date: 10/01/2012 Surgeon: Surgeon(s) and Role: [...] 9:00 AM EDT Office [place] [address] Dion Osullivan MD [facility] [place] [address] 09/01/2024 9:40 AM EDT Office Visit Cardiology at [address] [phone] Franky Shaver MD [facility] [place] [address] 09/01/2024 11:20 AM EDT Office Visit Dermatology at [address] [place] [address] Gómez Mercer MD [facility] [place] [address] 09/21/2024 2:45 PM EDT Office Visit [place] [address] Trung Hoyos MD [facility] [place] [address] documented as of this encounter Procedures Procedure [...] 5:54 PM EST) Surgical Pathology Report ? [facility] ? Provider: ?? Dion OSULLIVAN ?Pt. Name: ?? SHANT NAYA Joya ? Acc #: ?[id number] ?Pt. ? Col Date: ?? 10/01/2012 ? [...] MD PATHOLOGY/CYTOLOGY O CEE Performing Organization Address City/[facility] Co de Phone Number [facility] * Specimen to Pathology (surgical or derm) (10/01/2012 5:09 PM EST) AP Specimen 10/01/2012 5:09 PM EST 10/01/2012 5:09 PM EST Narrative [facility] - 10/01/2012 5:09 PM EST Specimen requisition ordered. ??Separate Pathology report to follow L Karthik Osullivan MD PATHOLOGY/CYTOLOGY O CEE [facility] * UPPER GI ENDOSCOPY (10/01/2012 4:41 PM EST) UPPER GI ENDOSCOPY [facility] Endoscopy Patient Name: Naya Rodriguez ? Procedure Date: 10/01/2012 4:41 PM ? Date of : 1950 ? Age: 62 ? Order #: [id number] ? Procedure: ? Upper GI endoscopy Indications: ? Epigastric abdominal pain Providers: ? L Karthik Osullivan MD, Alannah Singletary, ? RN, Mona Osborne, [place] Marshal Referring : ?Maximilian Fall MD Medicines: ? [...] GENERAL SURGICAL ORD ERABLES Performing Organization Address [facility] Co de Phone Number PROVATION * POCT GLUCOSE (10/01/2012 4:27 PM EST) Glucose, POC 84 60 - 199 mg/dL [facility] Comment: Supplemental ranges: <110 mg/dL before [...] RN) documented in this encounter Care Teams Station Installation Supervisor Relationship Specialty Start Date End Date Maximilian Fall MD [address] [place] [address] PCP - General 10/01/11 02/13/21 documented as of this encounter
--- OUTSIDE RECORDS SUMMARY | 2024-07-18 14:31 | XMS_ITS | Encounter Summary ---
Author Organization [facility] Address [facility] [place] [address] Care Team Providers Care Meat Products Demonstrator Name Role Phone Maximilian Fall MD Primary Care Provider [phone] Encounter Details Date Type Department Care Team (Late st Contact Info) Description 03/16/2012 2:30 PM EDT - 03/16/2012 3:30 PM EDT Surgery [place] [address] Enrico Tellez MD [facility] [place] [address] FLEXIBLE SIGMOIDOSCOPY (WRVU 0.84) Social History Tobacco [...] please contact your M. D. Please call [phone] BEFORE 5PM with any questions or concerns, AFTER 5PM call [phone] andask to speak to the Thermograph Operator stone gluer. * Patient Instructions* Enrico Tellez MD - 03/16/2012 1:27 PM EDT Please see Recommendations in the Provation procedure report which is documented in the procedural note in E-DH. * Attachments The following attachments cannot be sent through Care Everywhere. * SIGMOIDOSCOPY: WHAT TO EXPECT AT HOME (LATVIAN) documented in this encounter Medications at Time [...] 9:00 AM EDT Office [place] [address] Dion Barlow MD [facility] [place] [address] 09/01/2024 9:40 AM EDT Office Visit Cardiology at [address] [place] [address] Franky Shaver MD [facility] [place] [place] [address] 09/01/2024 11:20 AM EDT Office Visit Dermatology at [place] [address] [place] [address] Gómez Mercer MD [facility] [place] [address] 09/21/2024 2:45 PM EDT Office Visit [facility] [place] [address] Trung Hoyos MD [facility] [place] [address] documented as of this encounter Procedures Procedure Name Priority Date/Time Associated Diagnosis Comments SURGICAL PATHOLOGY REPORT Routine 03/16/2012 4:52 PM EDT SPECIMEN TO PATHOLOGY Routine 03/16/2012 2:09 PM EDT FLEXIBLE SIGMOIDOSCOPY (WRVU 0.84) 03/16/2012 1:27 PM EDT study patient POCT GLUCOSE Routine 03/16/2012 1:16 PM EDT documented in this encounter Results * SURGICAL PATHOLOGY REPORT (03/16/2012 4:52 PM EDT) Surgical Pathology Report ? [facility] ? Provider: ?? ENRICO TELLEZ ?Pt. Name: ?? NAYA RODRIGUEZ ? Acc #: ?[id number] ?Pt. ? Col Date: ?? 03/16/2012 ? [...] MD PATHOLOGY/CYTOLOGY O CEE Performing Organization Address [facility] de Phone Number DURGA FREDERICK * Specimen to Pathology (surgical or derm) (03/16/2012 2:09 PM EDT) AP Specimen 03/16/2012 2:09 PM EDT 03/16/2012 2:09 PM EDT Narrative D[facility]GA TIAGOTADEOIUM - 03/16/2012 2:09 PM EDT Specimen requisition ordered. ??Separate Pathology report to follow Enrico Tellez MD PATHOLOGY/CYTOLOGY O CEE Performing Organization Address [facility] de Phone Number DURGA FREDERICK * POCT GLUCOSE LAB USE ONLY (03/16/2012 1:16 PM EDT) Glucose, POC 116 60 - 199 mg/dL [facility] Comment: Supplemental ranges: <110 mg/dL before meals <200 mg/dL all other times of the day Blood specimen (specimen) 03/16/2012 1:16 PM EDT 03/16/2012 1:16 PM EDT Enrico Tellez MD POINT OF CARE TEST O ECE Performing Organization Address [facility] de Phone Number DURGA FREDERICK [...] 1334 (Given - Provid er: April A [place], RN)1337 (Given - Provider: April Archibald RN)1347 (Given - Provider: April Archibald RN) documented in this encounter Care Teams Meat Products Demonstrator Relationship Specialty Start Date End Date Maximilian Fall MD [address] [place] [address] PCP - General 10/01/11 02/13/21 documented as of this encounter
--- OUTSIDE RECORDS SUMMARY | 2024-07-18 14:32 | XMS_ITS | Encounter Summary ---
Author Organization [facility] Address [facility] [place] [address] Care Team Providers Care Logistics Research Engineer Name Role Phone More Naylor MD Primary Care Provider [phone] Reason for Visit * Reason Comments GI Problem Encounter Details Date Type Department Care Team (Late st Contact Info) Description 10/01/2011 9:30 AM EST Office Visit [place] [address] Dion Barlow MD [facility] [place] [address] Ulcerative colitis (Primary Dx) Discharge Disposition: Home [...] 1. Stool studies to be done at [facility] - will give instructions and a kit [...] ??? Ulcerative colitis Colonoscopy 04/08/10 (Dr. Gomes [facility]) [...] has three kids. 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 He quit smoking in 1991 after [...] adenopathy and no thyromegaly. HEENT: PERRL, EOMI, CUSTOMER SERVICE OFFICER and OP clear without ulceration or lesions. [...] 1. Stool studies to be done at [facility] - will give instructions, an order, and [...] questions 50 minutes of this 60 minute gvuu-lw-drui encounter were spent counseling the patient in the issuesoutlined above. Davina Barlow MD Moisture Meter Operatormountain services manager Section of [place]astroenter[place] [address] [email or web address] CC: MORE NAYLOR MD [address] [facility] [address] documented in this encounter Plan of Treatment Upcoming Encounters Date Type Department Care Team (Late st Contact Info) Description 08/15/2024 9:00 AM EDT Office Visit [place] [address] Dion Barlow MD [facility] [place] [address] 09/01/2024 9:40 AM EDT Office Visit Cardiology at [address] [phone] Franky Shaver MD [facility] [place] [address] 09/01/2024 11:20 AM EDT Office Visit Dermatology at [address] [place] [address] Gómez Mercer MD [facility] DR EDDIE [place] [address] 09/21/2024 2:45 PM EDT Office Visit Pain and Spine Center at [facility] [place] [address] Trung Hoyos MD [facility] [place] [address] documented as of this encounter Visit Diagnoses Diagnosis Ulcerative colitis- Primary Ulcerative colitis, unspecified documented in this encounter Care Teams Logistics Research Engineer Relationship Specialty Start Date End Date More Naylor MD [address] [place] [address] PCP - General 10/01/11 02/13/21 documented as of this encounter
--- OUTSIDE RECORDS SUMMARY | 2024-07-18 14:32 | XMS_ITS | Encounter Summary ---
Author Organization [facility] Address [facility] [place] [address] Care Team Providers Care Industry Operations Investigator Name Role Phone Maximilian Fall MD Primary Care Provider [phone] Encounter Details Date Type Department Care Team (Late st Contact Info) Description 03/02/2012 External Results [place] [address] Dion Barlow MD [facility] [place] [address] Social History Tobacco Use Types Packs/Day Years [...] 9:00 AM EDT Office [place] [address] Dion Barlow MD [facility] [place] [address] 09/01/2024 9:40 AM EDT Office Visit Cardiology at [address] [place] [address] Franky Shaver MD [facility] [address] 09/01/2024 11:20 AM EDT Office Visit Dermatology at [facility] [address] [place] [address] Gómez Mercer MD [facility] DR EDDIE [place] [address] 09/21/2024 2:45 PM EDT Office Visit Pain and Spine Center at [facility] [place] [address] Trung Hoyos MD [facility] [place] [address] documented as of this encounter Procedures Procedure Name Priority Date/Time Associated Diagnosis Comments EXTERNAL LAB RESULTS Routine 03/02/2012 documented in this encounter Results * External Lab Results (03/02/2012) Blood specimen (specimen) 03/02/2012 L Karthik Barlow MD CHEMISTRY ORDERABLES documented in this encounter Visit Diagnoses Not on filedocumented in this encounter Care Teams Industry Operations Investigator Relationship Specialty Start Date End Date Maximilian Fall MD [facility] [address] [facility] [place] [address] PCP - General 10/01/11 02/13/21 documented as of this encounter
--- OUTSIDE RECORDS SUMMARY | 2024-07-18 14:32 | XMS_ITS | Encounter Summary ---
Author Organization [facility] Address [facility] [place] [address] Care Team Providers Care Pattern Keeper Name Role Phone More Naylor MD Primary Care Provider Reason for Visit * Reason Comments Follow-up Encounter Details Date Type Department Care Team (Late st Contact Info) Description 11/05/2011 2:00 PM EST Follow-[place] [address] Dion Barlow MD [facility] [place] [address] Ulcerative colitis (Primary Dx) Discharge Disposition: Home [...] the preparation at this time. Please call [phone] to let us know that you cannot [...] time. ?? Please plan to be at [facility] for about 3 hours; please see your letter for estimated procedure and discharge times. If you have read the information thoroughly, and still have questions about what you have read, please call [phone] between the hours of 7:00am - 7:00pm, Thursday - Thursday and a nurse will assist you. If you have an urgent matter after hours, please call [phone], and ask to speak to the Gastroenterology Fellow labor commissioner. If you need to reschedule your colonoscopy, please call [phone]. We do have a high volume of [...] information packet from Gastroenterology and Hepatology and [facility]: ?? Please read ALL information in your information packet. ?? If you have read the information thoroughly, and still have questions about what you have read, please call [phone] between the hours of 7:00am - 7:00pm Thursday - Thursday, and a nurse will assist you. ?? If you have an urgent matter after hours, please call [phone], and ask to speak to the Gastroenterology Fellow labor commissioner. ?? If you need to reschedule your colonoscopy, please call [phone]. We do have a high volume of patients for this exam, so please give a least 72 hours notice for routine rescheduling. MEDICATION INFORMATION ?? Please call your prescribing physician to see if it is safe for you to lessen the dose or stop your medication prior to this procedure. Please note: If you cannot safely stop these medications, please call [phone]. The prescribing physician can give you instructions [...] you arrive (2 hours before your procedure) [facility] () ?? You will need to arrive ONE HOUR before your procedure time, to help you prepare for your procedure; please see your letter for exact arrival time. ?? Please plan to be at [facility] for about 3 hours; please see [...] forms of transportation like cabs or buses. [email or web address] 1 FREQUENTLY ASKED QUESTIONS ABOUT YOUR COLONOSCOPY [...] you continue to have problems, please call [phone] during office hours at 7am - 5pm.After hours please call [phone], and ask for the Gastroenterology Fellow labor commissioner. Q: Do I REALLY need to drink [...] have a deep chest cough, please call [phone] to see if you need to reschedule your appointment. Q: I am having my menstrual period. Should I reschedule my colonoscopy appointment? A: No. Your menstrual period will not interfere with your physician's ability to complete your procedure. [facility] FAQ 07/12/2009 Brian Rodriguez [address] [facility] [address] Thank you for choosing [facility] for your medical needs. You are scheduledfor a colonoscopy on at the [facility] at [place] Set Up 4T (Level 4). Below you will find [...] about what you have read, please call [phone] between the hours of 7:00am - 7:00pm Thursday - Thursday, and ask to speak to the Gastroenterology Fellow labor commissioner. If you need to reschedule your procedure please call: [phone]. Thank you for choosing [facility]. Sincerely, The Gastroenterology and Hepatology Team and the Endoscopy Center at [facility] documented in this encounter Progress Notes * Dion Barlow MD - 11/05/2011 2:31 PM EST Patient Active Problem List Diagnoses ??? Ulcerative colitis [556.9J] Colonoscopy 04/08/10 (Dr. Gomes [facility]) - inflammation only within the [...] 4. Arrange for colonoscopy. Davina Barlow MD Director Content Marketingchin strap maker Section of Gastroenterology [place] [address] CC: MORE NAYLOR MD [address] [place] [address] documented in this encounter Plan of Treatment Upcoming Encounters Date Type Department Care Team (Late st Contact Info) Description 08/15/2024 9:00 AM EDT Office [place] [address] Dion Barlow MD [facility] [place] [address] 09/01/2024 9:40 AM EDT Office Visit Cardiology at [address] [address] Franky Shaver MD [facility] [place] [address] 09/01/2024 11:20 AM EDT Office Visit Dermatology at [facility] [address] [place] [address] Gómez Mercer MD [facility] DR EDDIE [place] [address] 09/21/2024 2:45 PM EDT Office Visit Pain and Spine Center at [facility] [address] Trung Hoyos MD [facility] [place] [address] documented as of this encounter Procedures Procedure [...] MD HEMATOLOGY ORDERABLE S Performing Organization Address [facility] Co de Phone Number [facility] * TPMT Enzyme (11/05/2011 3:15 PM EST) Pathologist [facility] TPMT Enzyme See Note [facility] Comment: Normal Activity Please see scanned report in Chart Review under the Non-DH Laboratory Heading. Test performed by [facility], [address] [place] [address] Blood specimen (specimen) 11/05/2011 3:15 PM EST 11/05/2011 3:45 PM EST Dion Barlow MD CHEMISTRY ORDERABLES Performing Organization Address [facility] Co de Phone Number [facility] * High Sensitivity CRP (11/05/2011 3:15 PM EST) C-Reactive Protein High Sensitivity 2.3 mg/L [facility] Comment: Interpretations: 1) For cardiac risk assessment, [...] Barlow MD CHEMISTRY ORDERABLES Performing Organization Address [facility] de Phone Number [facility] * Sedimentation rate (11/05/2011 3:15 PM EST) [facility] Signature Sedimentation Rate Automated 13 0 - 15 mm/hr DURGA FREDERICK Blood specimen (specimen) 11/05/2011 3:15 PM EST 11/05/2011 3:22 PM EST L Karthik Barlow MD HEMATOLOGY ORDERABLE S Performing Organization Address [facility] de Phone Number CERGIOVANNI MILLENNIUM * CMP w/fasting Glucose (11/05/2011 3:15 PM EST) [facility] Glucose Fasting 97 65 - 99 [...] of Diabetes Mellitus, Position Statement from the [place] [employer]. ??Diabetes Care, Volume 33, Supplement [...] MD HEMATOLOGY ORDERABLE S Performing Organization Address City/State/[facility] Co de Phone Number DURGA FREDERICK documented in this encounter Visit Diagnoses Diagnosis Ulcerative colitis- Primary Ulcerative colitis, unspecified documented in this encounter Care Teams Pattern Keeper Relationship Specialty Start Date End Date More Naylor MD [address] [place] [address] PCP - General 10/01/11 02/13/21 documented as of this encounter
--- OUTSIDE RECORDS SUMMARY | 2024-07-18 14:32 | XMS_ITS | Encounter Summary ---
Author Organization [facility] Address [facility] [place] [address] Care Team Providers Care Picture Engraver Name Role Phone Maximilian Fall MD Primary Care Provider [phone] Reason for Visit * Reason Onset Date Comments Research 02/20/2012 discuss [facility] Encounter Details Date Type Department Care Team (Late st Contact Info) Description 02/20/2012 Telephone [place] [address] Mica Gore, JAZMINE [facility] [place] [address] Research (discuss [facility]) Social History Tobacco [...] AM EDT Office [place] [phone] Dion Barlow MD [facility] [place] [address] 09/01/2024 9:40 AM EDT Office Visit Cardiology at [address] [address] Franky Shaver MD [facility] [place] [address] 09/01/2024 11:20 AM EDT Office Visit Dermatology at [facility] [address] [place] [address] Gómez Mercer MD [facility] DR EDDIE [place] [address] 09/21/2024 2:45 PM EDT Office Visit [place] [address] Trung Hoyos MD [facility] [place] [address] documented as of this encounter Visit Diagnoses Not on filedocumented in this encounter Care Teams Picture Engraver Relationship Specialty Start Date End Date Maximilian Fall MD [address] [place] [address] PCP - General 10/01/11 02/13/21 documented as of this encounter
--- OUTSIDE RECORDS SUMMARY | 2024-07-18 14:32 | XMS_ITS | Encounter Summary ---
Author Organization [facility] Address [facility] [place] [address] Care Team Providers Care Data Processing Systems Consultant Name Role Phone Maximilian Fall MD Primary Care Provider [phone] Encounter Details Date Type Department Care Team (Late st Contact Info) Description 03/02/2012 External [place] [address] Dion Barlow MD [facility] [place] [address] Social History Tobacco Use Types Packs/Day Years [...] 9:00 AM EDT Office [place] [phone] Dion Barlow MD [facility] [place] [address] 09/01/2024 9:40 AM EDT Office Visit Cardiology at [address] [place] [address] Franky Shaver MD [facility] [place] [address] 09/01/2024 11:20 AM EDT Office Visit Dermatology at [facility] [address] [place] [address] Gómez Mercer MD [facility] DR [place] [address] 09/21/2024 2:45 PM EDT Office Visit Pain and Spine Center at [facility] [address] Trung Hoyos MD [facility] [place] [address] documented as of this encounter Procedures Procedure Name Priority Date/Time Associated Diagnosis Comments EXTERNAL LAB RESULTS Routine 03/04/2012 documented in this encounter Results * External Lab Results (03/04/2012) Blood specimen (specimen) L Karthik Barlow MD CHEMISTRY ORDERABLES documented in this encounter Visit Diagnoses Not on filedocumented in this encounter Care Teams Data Processing Systems Consultant Relationship Specialty Start Date End Date Maximilian Fall MD [facility] [address] [facility] 1 [place] [address] PCP - General 10/01/11 02/13/21 documented as of this encounter
--- OUTSIDE RECORDS SUMMARY | 2024-07-18 14:32 | XMS_ITS | Encounter Summary ---
Author Organization [facility] Address [facility] [place] [address] Care Team Providers Care Bonding Machine Setter Name Role Phone Maximilian Fall MD Primary Care Provider [phone] Encounter Details Date Type Department Care Team (Latest Contact Info) Description 03/16/2012 12:32 PM EDT - 03/16/2012 3:00 PM EDT Hospital Encounter [place] [address] Enrico Tellez MD [facility] [place] [address] Discharge Disposition: Home Social History Tobacco Use [...] please contact your M. D. Please call [phone] BEFORE 5PM with any questions or concerns, AFTER 5PM call [phone] andask to speak to the Recreation Instructor fire control mechanic. * Patient Instructions* Enrioc Tellez MD - 03/16/2012 1:27 PM EDT Please see Recommendations in the Provation procedure report which is documented in the procedural note in E-DH. * Attachments The following attachments cannot be sent through Care Everywhere. * SIGMOIDOSCOPY: WHAT TO EXPECT AT HOME (KITTITIAN) documented in this encounter Medications at Time [...] 9:00 AM EDT Office Visit [place] [address] Dion Barlow MD [facility] [place] [address] 09/01/2024 9:40 AM EDT Office Visit Cardiology at [address] [place] [address] Franky Shaver MD [facility] [place] [address] 09/01/2024 11:20 AM EDT Office Visit Dermatology at [facility] [address] [place] [address] Gómez Mercer MD [facility] [place] [address] 09/21/2024 2:45 PM EDT Office Visit Pain [place] [address] Trung Hoyos MD [facility] [place] [address] documented as of this encounter Procedures Procedure [...] PM EDT) Surgical Pathology Report ? [facility] ? Provider: ?? ENRICO TELLEZ ?Pt. Name: ?? SHANTNAYA ? Acc #: ?[id number] ?Pt. ? Col Date: ?? 03/16/2012 ? [...] PATHOLOGY/CYTOLOGY O CEE Performing Organization Address [facility] de Phone Number DURGA FREDERICK * Specimen to Pathology (surgical or derm) (03/16/2012 2:09 PM EDT) AP Specimen 03/16/2012 2:09 PM EDT 03/16/2012 2:09 PM EDT Narrative DURGA TIAGOENNIUM - 03/16/2012 2:09 PM EDT Specimen requisition ordered. ??Separate Pathology report to follow Enrico Tellez MD PATHOLOGY/CYTOLOGY O CEE Performing Organization Address [facility] de Phone Number DURGA FREDERICK * [...] Performing Organization Address [facility] de Phone Number DURGA FREDERICK documented [...] RN) documented in this encounter Care Teams Bonding Machine Setter Relationship Specialty Start Date End Date Maximilian Fall MD [address] [place] [address] PCP - General 10/01/11 02/13/21 documented as of this encounter
--- OUTSIDE RECORDS SUMMARY | 2024-07-18 14:32 | XMS_ITS | Encounter Summary ---
Author Organization [facility] Address [facility] [place] [address] Care Team Providers Care Truck Body Repairer Name Role Phone Maximilian Fall MD Primary Care Provider [phone] Encounter Details Date Type Department Care Team (Late st Contact Info) Description 11/27/2011 1:00 PM EST - 11/27/2011 1:45 PM EST Surgery [place] [address] Dion Osullivan MD [facility] [place] [address] COLONOSCOPY, DIAGNOSTIC (WRVU 3.26) Social History Tobacco [...] - 11/27/2011 2:37 PM EST Please call [phone], before 5pm with problems, questions or concerns, after 5pm call the Hospital at [phone] and ask to speak to the Qualitative Field Coordinator precision machining instructor and the salmon gillnet vessel operator will contactthat person for you. Discharge instructions reviewed with patient who expresses understanding. * Patient Instructions* Dion Osullivan MD - 11/27/2011 1:07 PM EST Please see Recommendations in the Provation procedure report which is documented in the procedural note in E-DH. * Attachments The following attachments cannot be sent through Care Everywhere. * COLONOSCOPY: WHAT TO EXPECT AT HOME (ICELANDIC) documented in this encounter Medications at Time [...] Osullivan MD - 11/27/2011 1:06 PM EST [employer] Operative Note Patient Name: Naya Rodriguez : [id number] MR#: [id number] Case Date: 11/27/2011 Surgeon: Surgeon(s) and Role: * Dion OSULLIVAN MD - Primary Please see the Provation procedure report in the Procedures tab in eDH. documented in this encounter Plan of Treatment Upcoming Encounters Date Type Department Care Team (Late st Contact Info) Description 08/15/2024 9:00 AM EDT Office Visit [place] [address] Dion Osullivan MD [facility] [place] [address] 09/01/2024 9:40 AM EDT Office Visit Cardiology at [address] [address] Franky Shaver MD [facility] [place] [address] 09/01/2024 11:20 AM EDT Office Visit Dermatology at [address] [address] Gómez Mercer MD [facility] DR [place] [address] 09/21/2024 2:45 PM EDT Office Visit [facility] [place] [address] Trung Hoyos MD [facility] [place] [address] documented as of this encounter Procedures Procedure [...] 4:38 PM EST) Surgical Pathology Report ? [facility] ? Provider: ?? Dion OSULLIVAN ?Pt. Name: ?? NAYA RODRIGUEZ ? Acc #: ?[id number] ?Pt. ? Col Date: ?? 11/27/2011 ?/Sex: [...] Stephen, rubbery mucosal polyp, the larger ? [facility] ? Provider: ?? Dion OSULLIVAN ?Pt. Name: ?? NAYA RODRIGUEZ ? Acc #: ?[id number] ?Pt. ? Col Date: ?? 11/27/2011 ?/Sex: [...] MD PATHOLOGY/CYTOLOGY O CEE Performing Organization Address [facility] Co de Phone Number [facility] * Specimen to Pathology (surgical or derm) (11/27/2011 1:53 PM EST) AP Specimen 11/27/2011 1:53 PM EST 11/27/2011 1:53 PM EST Narrative [facility] - 11/27/2011 1:53 PM EST Specimen requisition ordered. ??Separate Pathology report to follow L Karthik Osullivan MD PATHOLOGY/CYTOLOGY O CEE Performing Organization Address City/[facility] Co de Phone Number [facility] * Specimen to Pathology (surgical or derm) (11/27/2011 1:53 PM EST) AP Specimen 11/27/2011 1:53 PM EST 11/27/2011 1:53 PM EST Narrative [facility] - 11/27/2011 1:53 PM EST Specimen requisition ordered. ??Separate Pathology report to follow L Karthik Osullivan MD PATHOLOGY/CYTOLOGY O CEE Performing Organization Address [facility] Co de Phone Number [facility] * COLONOSCOPY (11/27/2011 1:01 PM EST) COLONOSCOPY [facility] Endoscopy Patient Name: Naya Rodriguez ? Procedure Date: 11/27/2011 01:01:31 PM ? Date of : 1950 ? Age: 61 ? Procedure: ? Colonoscopy Indications: ? Follow-up of left-sided chronic ? ulcerative colitis Providers: ? L Karthik Osullivan MD, Tyron Cee, ? RN, Qing López, Divinity Teacher Referring MD: ?Maximilian Fall MD Medicines: [...] time) documented in this encounter Care Teams Truck Body Repairer Relationship Specialty Start Date End Date Maximilian Fall MD [address] [place] [address] PCP - General 10/01/11 02/13/21 documented as of this encounter
--- OUTSIDE RECORDS SUMMARY | 2024-07-18 14:32 | XMS_ITS | Encounter Summary ---
Author Organization [facility] [place] [address] Care Team Providers Care Plumbing And Heating Contractor Name Role Phone Maximilian Fall MD Primary Care Provider [phone] Encounter Details Date Type Department Care Team (Late st Contact Info) Description 03/03/2012 Orders [place] [phone] Mica Gore APRN [facility] [place] [place] [address] Ulcerative colitis (Primary Dx) Social History Tobacco [...] 9:00 AM EDT Office [place] [phone] Dion Barlow MD [facility] [place] [address] 09/01/2024 9:40 AM EDT Office Visit Cardiology at [address] [place] [address] Franky Shaver MD [facility] [place] [address] 09/01/2024 11:20 AM EDT Office Visit Dermatology at [facility] [address] [place] [address] Gómez Mercer MD [facility] DR EDDIE [place] [address] 09/21/2024 2:45 PM EDT Office Visit [facility] [place] [phone] Trung Hoyos MD [facility] [place] [address] documented as of this encounter Procedures Procedure Name Priority Date/Time Associated Diagnosis Comments FLEXIBLE SIGMOIDOSCOPY Routine 2 1:15 PM EDT Ulcerative colitis documented in this encounter Results * FLEXIBLE SIGMOIDOSCOPY (03/16/2012 1:15 PM EDT) [facility] Signature FLEXIBLE SIGMOIDOSCOPY [facility] Endoscopy Patient Name: Brian Rodriguez ? Procedure Date: 03/16/2012 1:15 PM ? Date of : 1950 ? Age: 61 ? Order #: [id number] ? Procedure: ? Flexible Sigmoidoscopy Indications: ? pt with active UC, assess severity ? prior to entry in MTX study Providers: ? Enrico Tellez MD, April Augustine ? RONY Archibald, Kingsley Oneal, ? Electric Sign Wirer Referring MD: ?Maximilian Fall MD Requesting Provider: [...] GENERAL SURGICAL ORD ERABLES Performing Organization Address City/State/[facility] Co de Phone Number [employer] documented in this encounter Visit Diagnoses Diagnosis Ulcerative colitis- Primary Ulcerative colitis, unspecified documented in this encounter Care Teams Plumbing And Heating Contractor Relationship Specialty Start Date End Date Maximilian Fall MD [address] [place] [address] PCP - General 10/01/11 02/13/21 documented as of this encounter
--- OUTSIDE RECORDS SUMMARY | 2024-07-18 14:32 | XMS_ITS | Encounter Summary ---
Author Organization [facility] Address [facility] [place] [address] Care Team Providers Care Route Sales Representative Name Role Phone Maximilian Fall MD Primary Care Provider [phone] Reason for Visit * Reason Comments Research Merit UC screening v isit Encounter Details Date Type Department Care Team (Late st Contact Info) Description 03/02/2012 7:30 AM EDT Office Visit [place] [address] Mica Gore, [facility] [place] [address] Ulcerative colitis (Primary Dx) Social History Tobacco [...] 9:00 AM EDT Office [place] [address] Dion Barlow MD [facility] [place] [address] 09/01/2024 9:40 AM EDT Office Visit Cardiology at [address] [place] [phone] Franky Shaver MD [facility] [place] [address] 09/01/2024 11:20 AM EDT Office Visit Dermatology at [facility] [address] [place] [phone] Gómez Mercer MD [facility] DR EDDIE [place] [address] 09/21/2024 2:45 PM EDT Office Visit [facility] [place] [phone] Trung Hoyos MD [facility] [place] [address] documented as of this encounter Visit Diagnoses Diagnosis Ulcerative colitis- Primary Ulcerative colitis, unspecified documented in this encounter Care Teams Route Sales Representative Relationship Specialty Start Date End Date Maximilian Fall MD [address] [place] [address] PCP - General 10/01/11 02/13/21 documented as of this encounter
--- OUTSIDE RECORDS SUMMARY | 2024-07-18 14:32 | XMS_ITS | Encounter Summary ---
Author Organization [facility] Address [facility] [place] [address] Care Team Providers Care Voice Network Administrator Name Role Phone Maximilian Fall MD Primary Care Provider [phone] Encounter Details Date Type Department Care Team (Late st Contact Info) Description 03/02/2012 External Results [place] [address] Dion Barlow MD [facility] [place] [address] Social History Tobacco Use Types Packs/Day Years [...] 9:00 AM EDT Office Visit [place] [phone] Dion Barlow MD [facility] [place] [address] 09/01/2024 9:40 AM EDT Office Visit Cardiology at [address] [place] [phone] Franky Shaver MD [facility] [place] [address] 09/01/2024 11:20 AM EDT Office Visit Dermatology at [facility] [address] [place] [address] Gómez Mercer MD [facility] DR EDDIE [place] [address] 09/21/2024 2:45 PM EDT Office Visit Pain and Spine Center at [facility] [place] [phone] Trung Hoyos MD [facility] [place] [address] documented as of this encounter Procedures Procedure Name Priority Date/Time Associated Diagnosis Comments EXTERNAL LAB RESULTS Routine 03/02/2012 documented in this encounter Results * External Lab Results (03/02/2012) Stool specimen (specimen) 03/02/2012 L Karthik Barlow MD CHEMISTRY ORDERABLES documented in this encounter Visit Diagnoses Not on filedocumented in this encounter Care Teams Voice Network Administrator Relationship Specialty Start Date End Date Maximilian Fall MD [facility] [address] [facility] [place] [address] PCP - General 10/01/11 02/13/21 documented as of this encounter
--- OUTSIDE RECORDS SUMMARY | 2024-07-18 14:32 | XMS_ITS | Encounter Summary ---
Author Organization [facility] Address [facility] [place] [address] Care Team Providers Care Bodywork Therapist Name Role Phone Maximliian Fall MD Primary Care Provider [phone] Encounter Details Date Type Department Care Team (Late st Contact Info) Description 03/02/2012 Orders [place] [address] Dion Barlow MD [facility] [place] [address] Exam for clinical research (Primary Dx) Social [...] EDT Office [place] [phone] Dion Barlow MD [facility] [place] [address] 09/01/2024 9:40 AM EDT Office Visit Cardiology at [address] [place] [address] Franky Shaver MD [facility] [place] [address] 09/01/2024 11:20 AM EDT Office Visit Dermatology at [facility] [address] [place] [address] Gómez Mercer MD [facility] DR EDD[place] [address] 09/21/2024 2:45 PM EDT Office Visit Pain and Spine Center at [facility] [place] [address] Trung Hoyos MD [facility] [place] [address] documented as of this encounter Results * [...] trial documented in this encounter Care Teams Bodywork Therapist Relationship Specialty Start Date End Date Maximilian Fall MD [address] [place] [address] PCP - General 10/01/11 02/13/21 documented as of this encounter
--- OUTSIDE RECORDS SUMMARY | 2024-07-18 14:32 | XMS_ITS | Encounter Summary ---
Author Organization [facility] Address [facility] [place] [address] Care Team Providers Care Inspection Clerk Name Role Phone Maximilian Fall MD Primary Care Provider [phone] Encounter Details Date Type Department Care Team (Latest Contact Info) Description 03/02/2012 9:31 AM EDT - 03/02/2012 11:59 PM EDT Hospital Encounter XRay at [address] [place] [address] CLINIC, Dion Edmonds MD [facility] [place] [address] Exam for clinical research Discharge Disposition: Home [...] EDT Office [place] [address] Dion Barlow MD [facility] [place] [place] [address] 09/01/2024 9:40 AM EDT Office Visit Cardiology at [address] [phone] Franky Shaver MD [facility] [place] [address] 09/01/2024 11:20 AM EDT Office Visit Dermatology at [facility] [address] [place] [address] Gómez Mercer MD [facility] DR [place] [address] 09/21/2024 2:45 PM EDT Office Visit [place] [address] Trung Hoyos MD [facility] [place] [address] documented as of this encounter Procedures Procedure [...] trial documented in this encounter Care Teams Inspection Clerk Relationship Specialty Start Date End Date Maximilian Fall MD [address] [place] [address] PCP - General 10/01/11 02/13/21 documented as of this encounter
--- OUTSIDE RECORDS SUMMARY | 2024-07-18 14:32 | XMS_ITS | Encounter Summary ---
Author Organization [facility] Address [facility] [place] [address] Care Team Providers Care Bench Scientist Name Role Phone Maximilian Fall MD Primary Care Provider [phone] Encounter Details Date Type Department Care Team (Latest Contact Info) Description 11/27/2011 11:49 AM EST - 11/27/2011 2:45 PM EST Hospital Encounter [place] [address] Dion Osullivan MD [facility] [place] [address] Discharge Disposition: Home Social History Tobacco Use [...] - 11/27/2011 2:37 PM EST Please call [phone], before 5pm with problems, questions or concerns, after 5pm call the Hospital at [phone] and ask to speak to the Lump Room Supervisor wheelchair van operator first responder and the web press operator assistant will contactthat person for you. Discharge instructions reviewed with patient who expresses understanding. * Patient Instructions* Dion Osullivan MD - 11/27/2011 1:07 PM EST Please see Recommendations in the Provation procedure report which is documented in the procedural note in E-DH. * Attachments The following attachments cannot be sent through Care Everywhere. * COLONOSCOPY: WHAT TO EXPECT AT HOME (BENGALI) documented in this encounter Medications at Time [...] Osullivan MD - 11/27/2011 1:06 PM EST [facility] Operative Note Patient Name: Naya Rodriguez : [id number] MR#: [id number] Case Date: 11/27/2011 Surgeon: Surgeon(s) and Role: * Dion OSULLIVAN MD - Primary Please see the Provation procedure report in the Procedures tab in eDH. documented in this encounter Plan of Treatment Upcoming Encounters Date Type Department Care Team (Late st Contact Info) Description 08/15/2024 9:00 AM EDT Office [place] [address] Dion Osullivan MD [facility] [place] [address] 09/01/2024 9:40 AM EDT Office Visit Cardiology at [address] [address] Franky Shaver MD [facility] [place] [address] 09/01/2024 11:20 AM EDT Office Visit Dermatology at [address] [phone] Gómez Mercer MD [facility] [place] [address] 09/21/2024 2:45 PM EDT Office Visit [facility] [place] [address] Trung Hoyos MD [facility] [place] [address] documented as of this encounter Procedures Procedure [...] PM EST) Surgical Pathology Report ? [facility] ? Provider: ?? Dion OSULLIVAN ?Pt. Name: ?? SHANTNAYA ? Acc #: ?[id number] ?Pt. ? Col Date: ?? 11/27/2011 ?/Sex: [...] rubbery mucosal polyp, the larger ? [facility] ? Provider: ?? Dion OSULLIVAN ?Pt. Name: ?? NAYA RODRIGUEZ ? Acc #: ?[id number] ?Pt. ? Col Date: ?? 11/27/2011 ?/Sex: [...] CEE Performing Organization Address City/[facility] Co de Phone Number [facility] * Specimen to Pathology (surgical or derm) (11/27/2011 1:53 PM EST) AP Specimen 11/27/2011 1:53 PM EST 11/27/2011 1:53 PM EST Narrative [facility] - 11/27/2011 1:53 PM EST Specimen requisition ordered. ??Separate Pathology report to follow L Karthik Osullivna MD PATHOLOGY/CYTOLOGY O CEE Performing Organization Address City/[facility] Co de Phone Number [facility] * Specimen to Pathology (surgical or derm) (11/27/2011 1:53 PM EST) AP Specimen 11/27/2011 1:53 PM EST 11/27/2011 1:53 PM EST Narrative [facility] - 11/27/2011 1:53 PM EST Specimen requisition ordered. ??Separate Pathology report to follow L Karthik Osullivan MD PATHOLOGY/CYTOLOGY O CEE Performing Organization Address City/[facility] Co de Phone Number [facility] * COLONOSCOPY (11/27/2011 1:01 PM EST) COLONOSCOPY [facility] Endoscopy Patient Name: Naya Rodriguez ? Procedure Date: 11/27/2011 01:01:31 PM ? Date of : 1950 ? Age: 61 ? Procedure: ? Colonoscopy Indications: ? Follow-up of left-sided chronic ? ulcerative colitis Providers: ? L Karthik Osullivan MD, Tyron Cee, ? RN, Qing López, Cloth Wire Weaver Referring MD: ?Maximilian aFll MD Medicines: ? Midazolam 4 mg IV, [...] time) documented in this encounter Care Teams Bench Scientist Relationship Specialty Start Date End Date Maximilian Fall MD [address] [place] [address] PCP - General 10/01/11 02/13/21 documented as of this encounter
--- OUTSIDE RECORDS SUMMARY | 2024-07-18 14:32 | XMS_ITS | Encounter Summary ---
Author Organization [facility] Address [facility] [place] [address] Care Team Providers Care Pantographer Name Role Phone More Naylor MD Primary Care Provider [phone] Reason for Visit * Reason Comments Follow-up Encounter Details Date Type Department Care Team (Late st Contact Info) Description 01/28/2012 3:00 PM EST [place] [address] Dion Barlow MD [facility] [place] [address] Ulcerative colitis (Primary Dx) Discharge Disposition: Home [...] Ulcerative colitis Colonoscopy 04/08/10 (Dr. Gomes [facility]) - inflammation only within the rectum and sigmoid; extent of the exam was to the hepatic flexure; biopsies proximal to the sigmoid nl Repeat exam 11/27/11 ([facility] [...] first time since his colonoscopy in early [facility]. At that time, he had a patch [...] sooner of symptoms worsen. Davina Barlow MD Client Engagement Specialistcrib clerk Section of Gastroenterology [place] [address] CC: MORE NAYLOR MD [address] [facility] [address] documented in this encounter Plan of Treatment Upcoming Encounters Date Type Department Care Team (Late st Contact Info) Description 08/15/2024 9:00 AM EDT Office [place] [address] Dion Barlow MD [facility] [place] [address] 09/01/2024 9:40 AM EDT Office Visit Cardiology at [address] [phone] Franky Shaver MD [facility] [place] [address] 09/01/2024 11:20 AM EDT Office Visit Dermatology at [address] [phone] Gómez Mercer MD [facility] [place] [address] 09/21/2024 2:45 PM EDT Office Visit [place] [phone] Trung Hoyos MD [facility] [place] [address] documented as of this encounter Visit Diagnoses Diagnosis Ulcerative colitis- Primary Ulcerative colitis, unspecified documented in this encounter Care Teams Pantographer Relationship Specialty Start Date End Date More Naylor MD [address] [place] [address] PCP - General 10/01/11 02/13/21 documented as of this encounter
--- OUTSIDE RECORDS SUMMARY | 2024-07-20 13:32 | XMS_ITS | Referral Summary ---
Author Organization [facility] Address [address] [place] [address] Care Team Providers Care Metal Refiner Name Role Phone Maximilian Fall MD Primary Care Provider [phone] Encounters Date Type Department Care Team Description 06/29/2024 Travel 06/29/2024 18:51 EDT - 06/29/2024 23:59 EDT Hospital Encounter [facility] [place] Discharge Disposition: Home [...] DERABLES from Last 3 Months Care Teams Metal Refiner Relationship Specialty Start Date End Date Maximilian Fall MD PCP - General 03/18/16
--- OUTSIDE RECORDS SUMMARY | 2024-07-20 13:32 | XMS_ITS | Clinical Summary ---
Author Organization [facility] Address [address] [place] [address] Care Team Providers Care Concrete Boom Operator Name Role Phone Maximilian Fall MD Primary Care Provider [phone] Encounters Date Type Department Care Team Description 06/29/2024 18:51 EDT - 06/29/2024 23:59 EDT Hospital Encounter [facility] [place] Discharge Disposition: [...] DERABLES from Last 3 Months Care Teams Concrete Boom Operator Relationship Specialty Start Date End Date Maximilian Fall MD PCP - General 03/18/16
--- OUTSIDE RECORDS SUMMARY | 2024-07-20 13:33 | XMS_ITS | Encounter Summary ---
Author Organization [facility] Address [address] [place] [address] Care Team Providers Care Coffee Machine Technician Name Role Phone Sharad Leon MD Primary Care Provider Unavail able Encounter Details Date Type Department Care Team (Late st Contact Info) Description 03/13/2016 Results Only [facility] [phone] Marcy Laurent, DO [address] [place] [address] Social History Tobacco Use Types [...] ? BRIAN RODRIGUEZ ? Accession #: ? [id number] ? : ? 1950 (Age: 65) ??M [...] adjacent to the proximal stapled margin, two inbound sales representative cross sections and one-half of the longitudinally bisected distal tip are submitted in 1. Dr. Beth 03/17/2016 3:13 PM End of Report [facility] 03/13/2016 19:4 2 EDT 03/14/2016 19:42 EDT Marcy Laurent DO PATHOLOGY ORDERABLES [facility] [address] [place] [address] * SUSCEPTIBILITY (03/13/2016 12:15 EDT) Result ESCHERICHIA COLI Organism identification performed by client. 03/17/2016 7:51 EDT [facility] URINE / Unknown 03/13/2016 1 [...] - GENER AL ORDERABLES Performing Organization Address City/[facility] Co de Phone Number [facility] [address] [place] [address] documented in this encounter Visit Diagnoses Not on filedocumented in this encounter Care Teams Coffee Machine Technician Relationship Specialty Start Date End Date Sharad Leon MD PCP - General 12/07/09 03/17/16 documented as of this encounter
--- OUTSIDE RECORDS SUMMARY | 2024-07-20 13:33 | XMS_ITS | Encounter Summary ---
Author Organization [facility] Address [address] [place] [address] Care Team Providers Care Turner And Former Automatic Name Role Phone More Naylor MD Primary Care Provider [phone] Encounter Details Date Type Department Care Team (Late st Contact Info) Description 10/30/2016 Results Only [facility] [phone] Tamara Reza, [address] [place], [place] [id number] Social History Tobacco Use Types Packs/Day Years [...] ? NAYA RODRIGUEZ ? Accession #: ? [id number] ? : ? 1950 (Age: 66) ??M [...] tumor. This sample was processed at the [facility]. ??The slides were reviewed and the final diagnosis was made at [facility], [address] [place] [address]. ([place] License Number [id number]) Document reviewed and electronically signed by: AMIE [...] to verbal report. ??Procedure performed at [facility]. ??Staining of frozen section is adequate. [...] to verbal report. ??Procedure performed at [facility]. Staining of frozen section is adequate. [...] Chowdhury 11/03/2016 3:11 PM End of Report [facility] 10/30/2016 11:3 0 EST 11/01/2016 11:30 EST Tamara Reza DO PATHOLOGY ORDER ASHLIE [facility] [address] [place] [address] documented in this encounter Visit Diagnoses Not on filedocumented in this encounter Care Teams Turner And Former Automatic Relationship Specialty Start Date End Date More Naylor MD PCP - General 03/18/16 documented as of this encounter
--- OUTSIDE RECORDS SUMMARY | 2024-07-20 13:33 | XMS_ITS | Encounter Summary ---
Author Organization [facility] Address [address] [place] [address] Care Team Providers Care Speech Language Pathology Assistant Name Role Phone Sharad Mcleod MD Primary Care Provider Unavail able Encounter Details Date Type Department Care Team (Late st Contact Info) Description 10/22/2004 Results Only [facility] [address] [place] [address] Maximilian Quiroga MD [address] [place] [address] Social History Tobacco Use Types Packs/Day Years [...] ? NAYA RODRIGUEZ ? Accession #: ? [id number] ? : ? 1950 (Age: 54) ??M [...] or eosinophils seen in this biopsy. ??(Dr. Hair)/[facility] ?? Document reviewed and electronically signed [...] submitted intact in one cassette. ?? (Dr. Terrazas-MS)/[facility] ?? End of Report [facility] ESCOTO 10/22/2004 10/22/2004 14: 58 EST Maximilian Quiroga MD PATHOLOGY ORDERABLES [facility] ESC[facility] [address] [place] [address] documented in this encounter Visit Diagnoses Not on filedocumented in this encounter Care Teams Speech Language Pathology Assistant Relationship Specialty Start Date End Date Sharad Mcleod MD PCP - General 12/07/09 03/17/16 documented as of this encounter
--- OUTSIDE RECORDS SUMMARY | 2024-07-20 13:33 | XMS_ITS | Encounter Summary ---
Author Organization [facility] Address [address] [place] [address] Care Team Providers Care Compounder Name Role Phone Maximilian Fall MD Primary Care Provider [phone] Encounter Details Date Type Department Care Team (Late st Contact Info) Description 06/28/2021 Lab Requisition [facility] Pathology & Laboratory Medicine - [address] [address] Bettina Shipman, DO [address] [place] [address] Encounter for other general examination Social History [...] explore management options, if applicable. 07/02/2021 9:15 [facility] Final Diagnosis A. [...] with no significant diagnostic abnormalities. 07/02/2021 9:15 [facility] Attestation There was significant resident/fellow involvement in the diagnostic evaluation of this case. By the signature below, the attending physician certifies that they have personally conducted a gross and/or microscopic examination of the described specimens and rendered or confirmed the above diagnosis. 07/02/2021 9:15 [facility] at 0915 Clinical History Dysphagia 07/02/2021 9:15 [facility] Gross Description A. [...] Destin Barros 06/29/2021 11:30 07/02/2021 9:15 EDT [facility] Resident/Bridger w: Gutierrez Castro DO 07/02/2021 9:15 EDT [facility] Performing Lab [facility] 9:15 EDT [facility] Scanned Images 07/02/2021 9:15 EDT [facility] Tissue ENTIRE ESOPHAGUS [...] 22:58 EDT Bettina Shipman DO PATHOLOGY ORDERABLES [facility] [address] [place] [address] documented in this encounter Visit Diagnoses Diagnosis Encounter for other general examination documented in this encounter Care Teams Compounder Relationship Specialty Start Date End Date Maximilian Fall MD PCP - General 03/18/16 documented as of this encounter
--- OUTSIDE RECORDS SUMMARY | 2024-07-20 13:33 | XMS_ITS | Encounter Summary ---
Author Organization [facility] Address [address] [place] [address] Care Team Providers Care Automotive Light Mechanic Name Role Phone Maximilian Fall MD Primary Care Provider Encounter Details Date Type Department Care Team (Late st Contact Info) Description 02/17/2023 Lab Requisition [facility] Pathology & Laboratory Medicine - [address] [id number] Outr Resulting Lab, Provider Social History Tobacco [...] PCR Negative Negative 02/18/2023 11:17 EDT [facility] Shigella/Enteroin vasive E. coli Negative Negative 02/18/2023 11:17 EDT [facility] HN LAB CAMPYLOBACTER PCR Negative Negative 02/18/2023 11:17 EDT [facility] Shiga Toxin PCR Negative Negative 03/29/202 3 11:17 EDT [facility] Feces SPECIMEN FROM RECTUM / Unknown 02/17/2023 7:00 EDT 02/17/2023 22:14 EDT Provider Outr Resulting Lab MICROBIOLOGY - GENERAL ORDERABLES Performing Organization Address City/State/[facility] Co de Phone Number [facility] [address] [place] [address] documented in this encounter Visit Diagnoses Not on filedocumented in this encounter Care Teams Automotive Light Mechanic Relationship Specialty Start Date End Date Maximilian Fall MD PCP - General 03/18/16 documented as of this encounter
--- OUTSIDE RECORDS SUMMARY | 2024-07-20 13:33 | XMS_ITS | Encounter Summary ---
Author Organization [facility] Address [address] [place] [address] Care Team Providers Care Grain Elevator Man Name Role Phone Maximilian Fall MD Primary Care Provider [phone] Reason for Referral * (Routine/Next Available) - Receiving Office to Obtain Authorization Specialty Diagnoses / Procedures Referred By Contac t Referred To Contact Procedures XR OUTSIDE IMAGES CHEST Unknown, ProviderMD Referral ID Status Reason Start Date Expiration Date Visits Requested Visits Authorized [id number] Receiving Office to Obtain Authorization 06/29/2024 1 1 Reason for Visit * (Routine/Next Available) - Receiving Office to Obtain Authorization Specialty Diagnoses / Procedures Referred By Contac t Referred To Contact Procedures XR OUTSIDE IMAGES CHEST Unknown, MD [place] Referral ID Status Reason Start Date Expiration Date Visits Requested Visits Authorized [id number] Receiving Office to Obtain Authorization 06/29/2024 1 1 Encounter Details Date Type Department Care Team (Latest Contact Info) Description 06/29/2024 18:51 EDT - 06/29/2024 23:59 EDT Hospital Encounter [facility] Secondary Reads [place] Discharge Disposition: [...] filedocumented in this encounter Care Teams Grain Elevator Man Relationship Specialty Start Date End Date Maximilian Fall MD PCP - General 03/18/16 documented as of this encounter
--- OUTSIDE RECORDS SUMMARY | 2024-07-20 13:33 | XMS_ITS | Encounter Summary ---
Author Organization [facility] Address [address] [place] [address] Care Team Providers Care Food Science Technician Name Role Phone Unavailable Primary Care Provider Unavailabl e Encounter Details Date Type Department Care Team (Late st Contact Info) Description 10/09/2008 Before PRISM Converted Visit (Maple) [facility] - Maple conversion [address] [place] [address] Yeni Agustin MD [address] [place] [id number] Social History Tobacco Use Types Packs/Day Years [...] ? RODRIGUEZ, BRIAN ? Accession #: ? [id number] ? : ? 1950 (Age: 58) ??M [...] PATHOLOGY ORDERABLE [facility] [address] [place] [address] documented in this encounter Visit Diagnoses Not on filedocumented in this encounter
--- OUTSIDE RECORDS SUMMARY | 2024-07-20 13:33 | XMS_ITS | Encounter Summary ---
Author Organization [facility] Address [address] [place] [address] Care Team Providers Care Occupational Medicine Specialist Name Role Phone Maximilian Fall MD Primary Care Provider [phone] Encounter Details Date Type Department Care Team (Late st Contact Info) Description 03/10/2023 Lab Requisition [facility] Pathology & Laboratory Medicine - [address] [address] Rodrick Florentino MD [address] [place] [phone] Other microscopic hematuria Social History Tobacco [...] Name Priority Date/Time Associated Diagnosis Comments NON THERAPEUTIC MASSAGE TECHNICIAN/FNA CYTOLOGY Today 03/09/2023 10:55 EDT Other microscopic hematuria documented in this encounter Results * NON THERAPEUTIC MASSAGE TECHNICIAN/FNA CYTOLOGY (03/09/2023 10:55 EDT) Note to Patient The following pathology results have been interpreted by your pathologist and may be available to you before your health provider has had the opportunity to review them. Please allow time for your provider to receive these results and explore management options, if applicable. 03/12/2023 7:50 [facility] Final Diagnosis URINE, CATHETERIZED, CYTOLOGIC EVALUATION: - Negative for high grade urothelial carcinoma. - Reactive urothelial cells, abundant acute inflammatory cells and lymphocytes present. 03/12/2023 7:50 [facility] Attestation By the signature below, the attending physician certifies that they have personally conducted a gross and/or microscopic examination of the described specimens and rendered or confirmed the above diagnosis. 03/12/2023 7:50 [facility] at 0750 Clinical History Hematuria; R31.29 03/12/2023 7:50 [facility] Gross Description A. 160cc's of clear pale pink fluid (Cytolyt added) were received and processed by selective cellular enhancement technique. 03/12/2023 7:50 [facility] Performing Lab [facility] 03/12/2023 7:50 [facility] Scanned Images 03/12/2023 7:50 [facility] Urine URINE SPECIMEN COLLECTION, CATHETERIZED / Unknown 03/09/2023 10:55 EDT 03/10/2023 6:16 EDT Rodrick Florentino MD PATHOLOGY ORDERAB LES Performing Organization Address City/State/[facility] Co de Phone Number [facility] [address] [place] [address] documented in this encounter Visit Diagnoses Diagnosis Other microscopic hematuria documented in this encounter Care Teams Occupational Medicine Specialist Relationship Specialty Start Date End Date Maximilian Fall MD PCP - General 03/18/16 documented as of this encounter
--- OUTSIDE RECORDS SUMMARY | 2024-07-20 13:33 | XMS_ITS | Encounter Summary ---
Author Organization [facility] Address [address] [place] [address] Care Team Providers Care Explosives Worker Name Role Phone Unavailable Primary Care Provider Unavailabl e Encounter Details Date Type Department Care Team (Late st Contact Info) Description 12/05/2009 Orders Only [facility] Laboratory Services - [facility] ([facility]) [address] [place], [place] [address] [place] [address] [place] [phone] Social History Tobacco Use Types Packs/Day [...] ? RODRIGUEZ, BRIAN ? Accession #: ? [id number] ? : ? 1950 (Age: 59) ??M [...] ?? lesions suggestive of a neoplastic focus. ??Wireless Team Member sections are submitted in (A1) and (A2). (Davina Ordoñez)/mpl ? End of Report ? [facility]PH[facility] ESCOTO 12/05/2009 12/06/2009 8:4 7 EST Jennifer Saenz MD PATHOLOGY ORDERABLES [facility] [address] [place] [address] documented in this encounter Visit Diagnoses Not on filedocumented in this encounter
--- OUTSIDE RECORDS SUMMARY | 2024-07-20 13:33 | XMS_ITS | Encounter Summary ---
Author Organization [facility] Address [address] [place] [address] Care Team Providers Care Location Man Name Role Phone Maximilian Fall MD Primary Care Provider [phone] Encounter Details Date Type Department Care Team (Latest Contact Info) Description 09/04/2016 8:11 EDT - 09/04/2016 23:59 EDT Hospital Encounter [address] [address] Unknown, Provider, Discharge Disposition: Home or Self [...] on filedocumented in this encounter Care Teams Location Man Relationship Specialty Start Date End Date Maximilian Fall MD PCP - General 03/18/16 documented as of this encounter
--- OUTSIDE RECORDS SUMMARY | 2024-07-20 13:33 | XMS_ITS | Encounter Summary ---
Author Organization [facility] Address [address] [place] [address] Care Team Providers Care Cloth Reeler Name Role Phone Sharad Mcleod MD Primary Care Provider Unavail able Encounter Details Date Type Department Care Team (Late st Contact Info) Description 04/08/2010 Results Only [facility] Laboratory Services - [facility] ([facility]) [address] [place], [place] [id number] Marcelo Agustin, DO [address] [place], [place] [address] Social History Tobacco Use Types Packs/Day Years [...] ? RODRIGUEZ, BRIAN ? Accession #: ? [id number] ? : ? 1950 (Age: 59) ??M [...] cm, submitted in toto as (D). (Davina Ordoñez)/[facility] ? End of Report ? [facility] 04/08/2010 04/09/2010 16: 29 EDT Marcelo Agustin DO PATHOLOGY ORDER ASHLIE Performing Organization Address City/State/[facility] Co de Phone Number [facility] [address] [place] [address] documented in this encounter Visit Diagnoses Not on filedocumented in this encounter Care Teams Cloth Reeler Relationship Specialty Start Date End Date Sharad Mcleod MD PCP - General 12/07/09 03/17/16 documented as of this encounter
--- OUTSIDE RECORDS SUMMARY | 2024-07-20 13:33 | XMS_ITS | Encounter Summary ---
Author Organization [facility] Address [address] [place] [address] Care Team Providers Care Hand Plug Shaper Name Role Phone Maximilian Fall MD Primary Care Provider [phone] Encounter Details Date Type Department Care Team (Late st Contact Info) Description 11/28/2021 Lab Requisition [facility] Pathology & Laboratory Medicine - [address] [address] Outr Resulting Lab, Provider Social History Tobacco [...] Resulting Lab MICROBIOLOGY - GENERAL ORDERABLES [facility] [address] [place] [address] * COVID-19 TESTING (11/27/2021 12:35 EST) COVID-19 rt-PCR Result Negative Negative 11/29/2021 16:23 EST [facility] Comment: This test has [...] developed and its performance characteristics determined by [facility]. It has not been cleared or [...] This test is based on the [facility] COVID-19 Emergency Use Authorization (EUA) assay, with minor modification as defined by the FDA Performed on the Renkooo 7 Flex RT-PCR System. Performing Lab [facility] 11/29/2021 16:23 EST [facility] Swab 11/27/2021 12:3 5 EST 11/28/2021 17:45 EST Provider Outr Resulting Lab MICROBIOLOGY - GENERAL ORDERABLES [facility] [address] [place] [address] documented in this encounter Visit Diagnoses Not on filedocumented in this encounter Care Teams Hand Plug Shaper Relationship Specialty Start Date End Date Maximilian Fall MD PCP - General 03/18/16 documented as of this encounter
--- OUTSIDE RECORDS SUMMARY | 2024-07-20 13:33 | XMS_ITS | Encounter Summary ---
Author Organization [facility] Address [address] [place] [address] Care Team Providers Care Event Crew Technician Name Role Phone More Fall MD Primary Care Provider [phone] Encounter Details Date Type Department Care Team (Late st Contact Info) Description 09/04/2016 Results Only [facility]- [facility] [phone] More Fall MD [address] [place] [address] Social History Tobacco Use Types Packs/Day Years [...] ? NAYA RODRIGUEZ ? Accession #: ? [id number] ? : ? 1950 (Age: 66) ??M [...] (ASCP) 09/05/2016 2:42 PM End of Report [facility] 09/04/2016 11:2 3 EDT 09/05/2016 11:23 EDT More Fall MD PATHOLOGY ORDERABLES [facility] [address] [place] [address] documented in this encounter Visit Diagnoses Not on filedocumented in this encounter Care Teams Event Crew Technician Relationship Specialty Start Date End Date More Fall MD PCP - General 03/18/16 documented as of this encounter
--- OUTSIDE RECORDS SUMMARY | 2024-07-20 13:33 | XMS_ITS | Encounter Summary ---
Author Organization [facility] Address [address] [place] [address] Care Team Providers Care Carpet Yarn Winder Operator Name Role Phone Maximilian Fall MD Primary Care Provider [phone] Encounter Details Date Type Department Care Team [...] filedocumented in this encounter Care Teams Carpet Yarn Winder Operator Relationship Specialty Start Date End Date Maximilian Fall MD PCP - General 03/18/16 documented as of this encounter
--- OUTSIDE RECORDS SUMMARY | 2024-07-20 13:33 | XMS_ITS | Encounter Summary ---
Author Organization [facility] Address [address] [place] [address] Care Team Providers Care Junior Copywriter Name Role Phone Maximilian Fall MD Primary Care Provider [phone] Encounter Details Date Type Department Care Team (Late st Contact Info) Description 12/31/2017 Results Only [facility] [phone] Tamara Reza, [address] [place], [place] [id number] Social History Tobacco Use Types Packs/Day Years [...] ? NAYA RODRIGUEZ ? Accession #: ? [id number] ? : ? 1950 (Age: 67) ??M [...] [place] 01/02/2018 9:44 AM End of Report [facility] 12/31/2017 16:3 5 EST 01/01/2018 16:35 EST Tamara Reza DO PATHOLOGY ORDER ASHLIE [facility] [address] [place] [address] documented in this encounter Visit Diagnoses Not on filedocumented in this encounter Care Teams Junior Copywriter Relationship Specialty Start Date End Date Maximilian Fall MD PCP - General 03/18/16 documented as of this encounter
--- OUTSIDE RECORDS SUMMARY | 2024-07-20 13:33 | XMS_ITS | Encounter Summary ---
Author Organization [facility] Address [address] [place] [address] Care Team Providers Care Outsole Caser Name Role Phone Maximilian Fall MD Primary Care Provider [phone] Encounter Details Date Type Department Care Team (Late st Contact Info) Description 11/10/2022 Lab Requisition [facility] Pathology & Laboratory Medicine - [address] [phone] Outr Resulting Lab, Provider Social History Tobacco [...] Salmonella PCR Negative Negative 11/11/2022 0:14 EST [facility] Shigella/Enteroin vasive E. coli Negative Negative 11/11/2022 0:14 EST [facility] HN LAB CAMPYLOBACTER PCR Negative Negative 11/11/2022 0:14 EST [facility] Shiga Toxin PCR Negative Negative 2 0:14 EST [facility] Feces SPECIMEN FROM RECTUM / Unknown 11/09/2022 10:00 EST 11/10/2022 17:36 EST Provider Outr Resulting Lab MICROBIOLOGY - GENERAL ORDERABLES Performing Organization Address City/State/[place] Co de Phone Number [facility] [address] [place] [address] documented in this encounter Visit Diagnoses Not on filedocumented in this encounter Care Teams Outsole Caser Relationship Specialty Start Date End Date Maximilian Fall MD PCP - General 03/18/16 documented as of this encounter
--- OUTSIDE RECORDS SUMMARY | 2024-07-20 13:33 | XMS_ITS | Encounter Summary ---
Author Organization [facility] Address [address] [place] [address] Care Team Providers Care Community Engagement Specialist Name Role Phone Maximilian Fall MD Primary Care Provider [phone] Encounter Details Date Type Department Care Team (Late st Contact Info) Description 08/15/2022 Lab Requisition [facility] Pathology & Laboratory Medicine - [address] [address] Zeyad Hudson, [address] [place] [address] Neoplasm of unspecified behavior of bone, soft [...] explore management options, if applicable. 08/18/2022 11:15 [facility] Final Diagnosis A. SKIN OF NASAL DORSUM, RIGHT, SHAVE BIOPSY: - Basal cell carcinoma, infiltrative type. - Basal cell carcinoma present at peripheral and deep tissue edges. 08/18/2022 11:15 [facility] Attestation By the signature below, the attending physician certifies that they have 1) personally conducted a gross and/or microscopic examination of the described specimen(s), and/or personally interpreted the results of laboratory testing of the described specimen(s), and 2) personally rendered or confirmed the above diagnosis. 08/18/2022 11:15 [facility] at 1114 Microscopic Description [...] of the islands and stroma. 08/18/2022 11:15 [facility] Clinical History History BCC; clinical diagnosis code: D49.2 08/18/2022 11:15 [facility] Gross Description A. Received [...] A1-A3. TOLU CHRIS 08/16/2022 10:29 08/18/2022 11:15 [facility] Performing Lab [facility] 08/18/2022 11:15 [facility] Scanned Images 08/18/2022 11:15 [facility] Tissue TISSUE SPECIMEN FROM SKIN / Unknown 08/14/2022 10:25 EDT 08/15/2022 21:12 EDT Zeyad MIRAMONTES PATHOLOGY ORDERABL ES [facility] [address] [place] [address] documented in this encounter Visit Diagnoses Diagnosis Neoplasm of unspecified behavior of bone, soft tissue, and skin documented in this encounter Care Teams Community Engagement Specialist Relationship Specialty Start Date End Date Maximilian Fall MD PCP - General 03/18/16 documented as of this encounter
--- OUTSIDE RECORDS SUMMARY | 2024-07-20 13:33 | XMS_ITS | Encounter Summary ---
Author Organization [facility] Address [address] [place] [address] Care Team Providers Care Paralegal Instructor Name Role Phone Sharad Leon MD Primary Care Provider Unavail able Encounter Details Date Type Department Care Team (Latest Contact Info) Description 03/14/2016 7:58 EDT - 03/14/2016 23:59 EDT Hospital Encounter [address] [address] Unknown, Provider, Discharge Disposition: Home or Self [...] on filedocumented in this encounter Care Teams Paralegal Instructor Relationship Specialty Start Date End Date Sharad Leon MD PCP - General 12/07/09 03/17/16 documented as of this encounter
--- OUTSIDE RECORDS SUMMARY | 2024-07-20 13:33 | XMS_ITS | Encounter Summary ---
Author Organization [facility] Address [address] [place] [address] Care Team Providers Care Business Reporter Name Role Phone Maximilian Fall MD Primary Care Provider [phone] Encounter Details Date Type Department Care Team (Late st Contact Info) Description 04/10/2020 Lab Requisition [facility] Pathology & Laboratory Medicine - [address] [address] Outr Resulting Lab, Provider Social History Tobacco [...] 0.0 - 6.5 ng/mL 04/11/2020 10:46 EDT [facility] Blood VENOUS BLOOD / Unknown 04/10/2020 9:15 EDT 04/10/2020 15:53 EDT Narrative [facility] - 04/11/2020 10:46 EDT NOTE: Serum PSA concentration should not be interpreted as absolute evidence for the presence or absence of malignant disease. Assayed on Siemens [employer]aur XPT using chemiluminescent technology.??Values obtained by using different assay methods cannot be used interchangeably. Provider Outr Resulting Lab CHEMISTRY & BLOOD GAS ORDERABLES [facility] [address] [place] [address] documented in this encounter Visit Diagnoses Not on filedocumented in this encounter Care Teams Business Reporter Relationship Specialty Start Date End Date Maximilian Fall MD PCP - General 03/18/16 documented as of this encounter
--- OUTSIDE RECORDS SUMMARY | 2024-07-20 13:33 | XMS_ITS | Encounter Summary ---
Author Organization [facility] Address [address] [place] [address] Care Team Providers Care Wallpaper Consultant Name Role Phone Maximilian Fall MD Primary Care Provider [phone] Encounter Details Date Type Department Care Team (Late st Contact Info) Description 07/09/2021 Lab Requisition [facility] Pathology & Laboratory Medicine - [address] [id number] Outr Resulting Lab, Provider Social History Tobacco [...] ORDERABLES [facility] [address] [place] [address] * COVID-19 TESTING (07/08/2021 16:45 EDT) COVID-19 rt-PCR Result Negative Negative 07/10/2021 13:51 EDT [facility] Comment: This [...] developed and its performance characteristics determined by [facility]. It has not been cleared or [...] based on the [facility] COVID-19 Emergency Use Authorization (EUA) assay, with minor modification as defined by the FDA Performed on the [employer] 7 Pro RT-PCR System. Performing Lab [facility] Lab 07/10/2021 13:51 EDT [facility] Swab 07/08/2021 16:4 5 EDT 07/09/2021 15:41 EDT Provider Outr Resulting Lab MICROBIOLOGY - GENERAL ORDERABLES Performing Organization Address City/[facility] Co de Phone Number [facility] [address] [place] [address] documented in this encounter Visit Diagnoses Not on filedocumented in this encounter Care Teams Wallpaper Consultant Relationship Specialty Start Date End Date Maximilian Fall MD PCP - General 03/18/16 documented as of this encounter
--- OUTSIDE RECORDS SUMMARY | 2024-07-20 13:33 | XMS_ITS | Encounter Summary ---
Author Organization [facility] Address [address] [place] [address] Care Team Providers Care Pediatric Physiatrist Name Role Phone Maximilian Fall MD Primary Care Provider [phone] Encounter Details Date Type Department Care Team (Latest Contact Info) Description 12/31/2017 9:43 EST - 12/31/2017 23:59 EST Hospital Encounter [address] [address] Unknown, Provider, Discharge Disposition: Home or Self Care Social History Tobacco Use Types Packs/Day Years Used Date Smoking Tobacco: Never Assessed Sex and Gender Information Value Date Recorded Sex Assigned at Not on file Gender Identity Not on file Sexual Orientation Not on file documented as of this encounter Discharge Disposition Disposition Code Departure Means Destination Home or Self Half-Way documented in this encounter Plan of Treatment Not on file documented as of this encounter Visit Diagnoses Not on filedocumented in this encounter Care Teams Pediatric Physiatrist Relationship Specialty Start Date End Date Maximilian Fall MD PCP - General 03/18/16 documented as of this encounter
--- OUTSIDE RECORDS SUMMARY | 2024-07-20 13:34 | XMS_ITS | Encounter Summary ---
Author Organization [facility] Address [facility] [place] [address] Care Team Providers Care Telephone Switchboard Operator Name Role Phone Deacon Watters APRN Primary Care Provider [phone] Encounter Details Date Type Department Care Team (Late st Contact Info) Description 07/05/2024 Abstract Cardiology at [address] [address] Lesa Duncan, RN Social History Tobacco Use Types Packs/Day Years Used Date Smoking Tobacco: Former Cigarettes 4 30 1 12/01/1961 - 10/01/1992 Smokeless Tobacco: Former Chew Comments:Denies vaping Alcohol Use Standard Drinks/Week Comments Yes 0 (1 standard drink = 0.6 oz pur e alcohol) twice a year [facility] Utilities Answer Date Recorded In the past 12 months has e [employer], gas, oil, or water [employer] threatened to shut off services in your [...] were you homeless or living in a halfway (including now)? No 07/01/2024 IPV Inpatient Questions [...] 9:00 AM EDT Office [place] [address] Dion Barlow MD [facility] [place] [address] 09/01/2024 9:40 AM EDT Office Visit Cardiology at [address] [phone] Franky Shaver MD [facility] [place] [address] 09/01/2024 11:20 AM EDT Office Visit Dermatology at [facility] [address] [place] [phone] Gómez Mercer MD [facility] DR ED[place] [address] 09/21/2024 2:45 PM EDT Office Visit [place] [address] Trung Hoyos MD [facility] [place] [address] documented as of this encounter Visit Diagnoses Not on filedocumented in this encounter Care Teams Telephone Switchboard Operator Relationship Specialty Start Date End Date Deacon aWtters, BLUEPRINT TRIMMER [address] [place] [address] [address] [place] [address] PCP - General Family Medicine 02/17/22 documented as of this encounter
--- OUTSIDE RECORDS SUMMARY | 2024-07-20 13:34 | XMS_ITS | Encounter Summary ---
Author Organization [facility] Address [facility] [place] [address] Care Team Providers Care Rotary Swaging Machine Operator Name Role Phone Deacon Watters APRN Primary Care Provider [phone] Reason for Visit * Reason Onset Date Comments Referral 07/05/2024 Coronary Artery Disease 07/05/2024 Encounter Details Date Type Department Care Team (Late st Contact Info) Description 07/05/2024 Telephone Cardiology at [address] [phone] Lesa Duncan, solutions delivery consultant; Coronary Artery Disease Social History Tobacco Use Types Packs/Day Years Used Date Smoking Tobacco: Former Cigarettes 4 30 1 12/01/1961 - 10/01/1992 Smokeless Tobacco: Former Chew Comments:Denies vaping Alcohol Use Standard Drinks/Week Comments Yes 0 (1 standard drink = 0.6 oz pur e alcohol) twice a year [facility] Utilities Answer Date Recorded In the past 12 months has e [employer], gas, oil, or water [employer] threatened to shut off services in your [...] any time in the past 12 [facility], were you homeless or living in a longterm (including now)? No 07/01/2024 IPV Inpatient Questions [...] were not included. Heart and Vascular Clinics [facility] [address] [place] [address] [place] [address] Brian Rodriguez was discharged from [facility] with a referral to see guard driver Dr. Franky Shaver following NSTEMI June 30. Brian Rodriguez is a 74 y.o. male with history of HTN, HLD, migraines, DM2, and UC who presented to [facility] for chest pain and was transferred to [facility] for NSTEMI found to have HFrEF. Course [...] 3.66) performed by Dion Osullivan MD at [facility] ENDOSCOPY PRO COLONOSCOPY, BIOPSY N/A 02/22/2019 COLONOSCOPY FLEXIBLE, WITH BX (WRVU 3.66) performed by Dion Osullivan MD at [facility] ENDOSCOPY PRO COLONOSCOPY, BIOPSY N/A 03/28/2022 COLONOSCOPY FLEXIBLE, WITH BX (WRVU 3.66) performed by Mona Turner MD at [facility] ENDOSCOPY PRO COLONOSCOPY, BIOPSY N/A 01/20/2024 COLONOSCOPY FLEXIBLE, WITH BX (WRVU 3.56) performed by Anthony Hamlin MD at [facility] ENDOSCOPY PRO COLONOSCOPY, DIAGNOSTIC 11/27/2011 COLONOSCOPY, DIAGNOSTIC performed by Dion OSULLIVAN at [facility] ENDOSCOPY PRO COLONOSCOPY, DIAGNOSTIC 07/13/2014 COLONOSCOPY, DIAGNOSTIC performed by Dion Osullivan MD at [facility] ENDOSCOPY PRO COLONOSCOPY, REMV LESN, SNARE N/A 02/22/2019 COLONOSCOPY, POLYPECTOMY, REMOVAL LESION BY SNARE (WRVU 4.67) performed by Dion Osullivan MD at [facility] ENDOSCOPY PRO COLONOSCOPY, REMV LESN, SNARE N/A 02/26/2021 COLONOSCOPY, POLYPECTOMY, REMOVAL LESION BY SNARE (WRVU 4.67) performed by Dion Osullivan MD at [facility] ENDOSCOPY PRO SIGMOIDOSCOPY, DIAGNOSTIC 03/16/2012 FLEXIBLE SIGMOIDOSCOPY performed by YUDI MALLOY at [facility] ENDOSCOPY PRO UPPER GI ENDOSCOPY, DIAGNOSTIC N/A 04/28/2019 EGD, UPPER GI ENDOSCOPY performed by Iza Coates MD at [facility] ENDOSCOPY UPPER GI ENDOSCOPY, EXAM 10/01/2012 UPPER GI ENDOSCOPY performed by Dion OSULLIVAN at [facility] ENDOSCOPY Current Medications. dicyclomine (Bentyl) 20 [...] the patient to see Cardiology here in [place]. documented in this encounter Plan of Treatment Upcoming Encounters Date Type Department Care Team (Late st Contact Info) Description 08/15/2024 9:00 AM EDT Office [place] [address] Dion Osullivan MD [facility] [place] [address] 09/01/2024 9:40 AM EDT Office Visit Cardiology at [address] [place] [address] Franky Shaver MD [facility] [place] [address] 09/01/2024 11:20 AM EDT Office Visit Dermatology at [facility] [address] [place] [address] Gómez Mercer MD [facility] DR EDDIE [place] [address] 09/21/2024 2:45 PM EDT Office Visit Pain and Spine Center at [facility] [place] [address] Trung Hoyos MD [facility] [place] [address] documented as of this encounter Visit Diagnoses Not on filedocumented in this encounter Care Teams Rotary Swaging Machine Operator Relationship Specialty Start Date End Date Deacon Watters, RECORD SEARCHER [address] [place] [address] PCP - General Family Medicine 02/17/22 documented as of this encounter
--- OUTSIDE RECORDS SUMMARY | 2024-07-20 13:34 | XMS_ITS | Encounter Summary ---
Author Organization [facility] Address [facility] [place] [address] Care Team Providers Care Civil Engineering Professor Name Role Phone Deacon Watters APRN Primary Care Provider [phone] Reason for Referral * Consultation (Routine) - Authorized Specialty Diagnoses / Procedures Referred By Contac t Referred To Contact Cardiology Diagnoses NSTEMI (non-ST elevated myocardial infarction) Ronel Hensley MD [facility] [place] [address] [facility] Cardiology [address] [place] [phone] Referral ID Status Reason Start Date Expiration Date Visits Requested Visits Authorized [id number] Authorized Consult, Test & Treat 07/04/2024 07/04/2025 1 1 * Consultation (Routine) - Authorized Specialty Diagnoses / Procedures Referred By Contac t Referred To Contact Cardiology Diagnoses NSTEMI (non-ST elevated myocardial infarction) Armond Denny MD [facility] [place] [address] Cardiac Rehab, [facility] [address] [place] [address] [place] [address] Referral ID Status Reason Start Date Expiration Date Visits Requested Visits Authorized [id number] Authorized Consult, Test & Treat 07/04/2024 12/31/2024 36 36 Reason for Visit * Auth/Cert (Routine) Specialty Diagnoses / Procedures Referred By Contac t Referred To Contact Diagnoses NSTEMI (non-ST elevated myocardial infarction) NSTEMI Triston Godinez MD [facility] [place] [address] [facility] Referral ID Status Reason Start Date Expiration Date Visits Re quested Visits Authorized [id number] 1 1 Encounter Details Date Type Department Care Team (Latest Contact Info) Description 06/30/2024 3:44 PM EDT - 07/04/2024 3:25 PM EDT Hospital Encounter Heart and Vascular Unit Level 3 Wing B at [place] [phone] Triston Godinez MD [facility] [place] [address] Armond Denny MD [facility] [place] [address] NSTEMI (non-ST elevated myocardial infarction) (Primary Dx) [...] Recorded In the past 12 months has [employer], gas, oil, or water company threatened [...] in the past 12 m [facility], were you homeless or living in a senior living (including now)? No 07/01/2024 DH IPV Inpatient [...] HLD, migraines, DM2, and UC who [facility] and was transferred to [facility] for NSTEMI found to [...] He was discharged with 6 days of [id number] mg BID after receiving 1 day of [...] Jardiance allergy. PCP Contact Information: Deacon Watters, MACHINE STAMPER [address] [address] / [facility] [address] Discharge Diagnoses (Hospital Problems) and Secondary Diagnoses [...] #HTN #HLD Mr. Rodriguez was transferred to [facility] for NSTEMI with trops of 4143 and 20,000 at the OSH, where he was loaded with ASA, plavix and started on heparin gtt. At [facility], his trops trended down [...] 100 mg succinate daily at discharge. #Pyelonephritis Brina had right flank pain and suprapubic abdominal [...] to exclude urinary tract infection. Cardiac Catheterization: ([facility]) RIGHT dominance LVEDP 10 Artery Lesion [...] 9:00 AM Dion Osullivan MD Gastroenterology at [facility] Arrive at: [place] [phone] 09/01/2024 11:20 AM Gómez Mercer MD Dermatology at [facility] Arrive at: [place] [phone] 09/21/2024 2:45 PM Trung Hoyos MD Pain and Spine Center at [facility] Arrive at: [place] [phone] Future Orders Complete By Expires Referral to Cardiac Rehab [[id number] Custom] As directed Process Instructions: If no progress note charted, please enter Clinical details in comments. Scheduling Instructions: Questions: My question or request is: NSTEMI, PCI, HFrEF- cardiac rehab at [facility] Referral to Cardiology [REF12 Custom] As directed [...] appointments: During 8am-5pm Thursday through Thursday call [phone] to speak with a nurse in the cardiology clinic All other times call [phone] and ask to speak to the collar worker loss mitigation specialist. Home oxygen therapy: none Arrangements for VNA/home care: none Follow up Appointments: Future Appointments Date Time Provider Department Center 08/15/2024 9:00 AM Dion Osullivan MD [facility] 09/01/2024 11:20 AM Gómez Mercer MD [facility] 09/21/2024 2:45 PM Trung Hoyos MD [facility] Pain Sp [facility] Manager Group Home: [facility] - referral sent and they are aware you need an appointment. If they do not reach out to you with an appointment in 1 week, call and ask for the cardiology clinic. PCP: Deacon Watters APRN at [phone] on July 08 at 4 PM Your Inpatient Doctor(s) at [facility]: Armond Denny MD - Attending physician Your Primary Care Provider: Deacon Watters APRN [address] / [facility] [id number] If you have non-emergent questions between now and the time of your follow up appointments: During 8am-5pm Thursday through Thursday call [phone] to speak with a nurse in the cardiology clinic All other times call [phone] and ask to speak to the collar worker loss mitigation specialist. Provider Contact Information: Deacon Watters APRN [address] / [facility] [address] Discharge References/Attachments: Discharge References/Attachments None For questions regarding this document or issues relating to this hospitalization on the Medical Service, please contact your inpatient physician through the [facility] Live In Housekeeper . Issues afterhours and on weekends will be handled by the Manager Group Home staff on-call. Signed: Ronel Hensley MD Internal [...] appointments: During 8am-5pm Thursday through Thursday call [phone] to speak with a nurse in the cardiology clinic All other times call [phone] and ask to speak to the collar worker loss mitigation specialist. Home oxygen therapy: none Arrangements for VNA/home care: none Follow up Appointments: Future Appointments Date Time Provider Department Center 08/15/2024 9:00 AM Dion Osullivan MD [facility] GASTRO [facility] 09/01/2024 11:20 AM Gómez Mercer MD [facility] 09/21/2024 2:45 PM Trung Hoyos MD [facility] Pain Sp [facility] Manager Group Home: [facility] - referral sent and they are aware you need an appointment. If they do not reach out to you with an appointment in 1 week, call and ask for the cardiology clinic. PCP: Deacon Watters APRN at [phone] on July 08 at 4 PM Your Inpatient Doctor(s) at [facility]: Armond Denny MD - Attending physician Your Primary Care Provider: Deacon Watters APRN [address] [facility] / [facility] [address] If you have non-emergent questions between now and the time of your follow up appointments: During 8am-5pm Thursday through Thursday call [phone] to speak with a nurse in the cardiology clinic All other times call [phone] and ask to speak to the collar worker loss mitigation specialist. documented in this encounter Medications at Time [...] migraines, DM2, and UC whowas transferred to [facility] for NSTEMI and now [...] 3.66) performed by Dion Osullivan MD at [facility] ENDOSCOPY PRO COLONOSCOPY, BIOPSY N/A 02/22/2019 COLONOSCOPY FLEXIBLE, WITH BX (WRVU 3.66) performed by Dion Osullivan MD at [facility] ENDOSCOPY PRO COLONOSCOPY, BIOPSY N/A 03/28/2022 COLONOSCOPY FLEXIBLE, WITH BX (WRVU 3.66) performed by Mona Turner MD at [facility] ENDOSCOPY PRO COLONOSCOPY, BIOPSY N/A 01/20/2024 COLONOSCOPY FLEXIBLE, WITH BX (WRVU 3.56) performed by Antohny Hamlin MD at [facility] ENDOSCOPY PRO COLONOSCOPY, DIAGNOSTIC 11/27/2011 COLONOSCOPY, DIAGNOSTIC performed by Dion OSULLIVAN at [facility] ENDOSCOPY PRO COLONOSCOPY, DIAGNOSTIC 07/13/2014 COLONOSCOPY, DIAGNOSTIC performed by Dion Osullivan MD at [facility] ENDOSCOPY PRO COLONOSCOPY, REMV LESN, SNARE N/A 02/22/2019 COLONOSCOPY, POLYPECTOMY, REMOVAL LESION BY SNARE (WRVU 4.67) performed by Dion Osullivan MD at [facility] ENDOSCOPY PRO COLONOSCOPY, REMV LESN, SNARE N/A 02/26/2021 COLONOSCOPY, POLYPECTOMY, REMOVAL LESION BY SNARE (WRVU 4.67) performed by iDon Osullivan MD at [facility] ENDOSCOPY PRO SIGMOIDOSCOPY, DIAGNOSTIC 03/16/2012 FLEXIBLE SIGMOIDOSCOPY performed by YUDI MALLOY at [facility] ENDOSCOPY PRO UPPER GI ENDOSCOPY, DIAGNOSTIC N/A 04/28/2019 EGD, UPPER GI ENDOSCOPY performed by Iza Coates MD at [facility] ENDOSCOPY UPPER GI ENDOSCOPY, EXAM 10/01/2012 UPPER GI ENDOSCOPY performed by Dion OSULLIVAN at [facility] ENDOSCOPY Social History: Home set-up: Lives on the first floor of a two level home in [place], [place] Stairs: FOS with bilateral rails vs a few stairs through the back to the first level, 8 step between rooms Bathroom Set-up: Tub-shower with grab bars, no shower chair Baseline Mobility: Ambulates without an assistive device. Independent with I/ADLs, including driving. 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 He enjoys taking care of his property including [employer] wood. He sleeps in a flat bed. 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 [...] Moderate Complexity Evaluation Qing Braxton, PT Pager: [phone] Physical Therapy Inpatient Rehabilitation Department * Day, Tray Bassett OT - 07/04/2024 9:40 AM EDT Occupational Therapy Evaluation Patient profile: Brian Rodriguez is a 74 y.o. male admitted on 06/30/2024 with PMHx of HTN, HLD, migraines, DM2, and UC who was transferred to [facility] for NSTEMI and now found to have HFrEF. Pt now s/p PCIto LCX. Past Medical History: Diagnosis Date Asthma 10/01/2011 Diabetes mellitus 10/01/2011 GERD (gastroesophageal reflux disease) 10/01/2011 Hearing loss 10/01/2011 Hydrocele 10/01/2011 Ulcerative colitis 10/01/2011 Past Surgical History: Procedure Laterality Date PRO COLONOSCOPY, BIOPSY N/A 02/12/2017 COLONOSCOPY FLEXIBLE, WITH BX (WRVU 3.66) performed by Dion Osullivan MD at [facility] ENDOSCOPY PRO COLONOSCOPY, BIOPSY N/A 02/22/2019 COLONOSCOPY FLEXIBLE, WITH BX (WRVU 3.66) performed by Dion Osullivan MD at [facility] ENDOSCOPY PRO COLONOSCOPY, BIOPSY N/A 03/28/2022 COLONOSCOPY FLEXIBLE, WITH BX (WRVU 3.66) performed by Mona Turner MD at [facility] ENDOSCOPY PRO COLONOSCOPY, BIOPSY N/A 01/20/2024 COLONOSCOPY FLEXIBLE, WITH BX (WRVU 3.56) performed by Anthony Hamlni MD at [facility] ENDOSCOPY PRO COLONOSCOPY, DIAGNOSTIC 11/27/2011 COLONOSCOPY, DIAGNOSTIC performed by Dion OSULLIVAN at [facility] ENDOSCOPY PRO COLONOSCOPY, DIAGNOSTIC 07/13/2014 COLONOSCOPY, DIAGNOSTIC performed by Dion Osullivan MD at [facility] ENDOSCOPY PRO COLONOSCOPY, REMV LESN, SNARE N/A 02/22/2019 COLONOSCOPY, POLYPECTOMY, REMOVAL LESION BY SNARE (WRVU 4.67) performed by Dion Osullivan MD at [facility] ENDOSCOPY PRO COLONOSCOPY, REMV LESN, SNARE N/A 02/26/2021 COLONOSCOPY, POLYPECTOMY, REMOVAL LESION BY SNARE (WRVU 4.67) performed by Dion Osullivan MD at [facility] ENDOSCOPY PRO SIGMOIDOSCOPY, DIAGNOSTIC 03/16/2012 FLEXIBLE SIGMOIDOSCOPY performed by YUDI MALLOY at [facility] ENDOSCOPY PRO UPPER GI ENDOSCOPY, DIAGNOSTIC N/A 04/28/2019 EGD, UPPER GI ENDOSCOPY performed by Iza Coates MD at [facility] ENDOSCOPY UPPER GI ENDOSCOPY, EXAM 10/01/2012 UPPER GI ENDOSCOPY performed by Dion OSULLIVAN at [facility] ENDOSCOPY Social History: Home set-up: Lives on the first floor of a two level home in [place], [place] Stairs: FOS with bilateral rails vs a few stairs through the back to the first level, 8 step between rooms Bathroom Set-up: Tub-shower with grab bars, no shower chair Baseline Mobility: Ambulates without an assistive device. Independent with I/ADLs, including driving. 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 He enjoys taking care of his property including [employer] wood. He sleeps in a flat bed. 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 [...] and measurable assessment of functional outcome. Pager: [phone] Tray Bassett. WILLY LoganR/L Occupational Therapy Rehabilitation Department * Armond Denny MD - 07/03/2024 7:03 AM EDT Inpatient Cardiology Progress Note Patient Name: Brian Rodriguez Date of Admission: 06/30/2024 ( Hospital Day 3 days ) Service: S2 ID: Brian Rodriguez is a 74 y.o. male with PMHx of HTN, HLD, migraines, DM2, and UC who presented [facility] for chest pain and was transferred to [facility] for NSTEMI found to [...] 1809 PROBNP 2,259* Trops: OSH 4143 >20,000>> [facility] 1234 and 1274 06/30 [...] to exclude urinary tract infection. Cardiac Catheterization: ([facility]) RIGHT dominance LVEDP 10 Artery Lesion [...] DM2, and UC who was transferred to [facility] for NSTEMI and now [...] Katia Reid MD Internal Medicine PGY-3 Pager [phone], M1-S2 Service CARDIOLOGY STAFF NOTE I have personally interviewed and examined the patient and reviewed appropriate data, including labs, ECGs and other diagnostic studies. I agree with the principal findings documented above. The assessment and plan were formulated in discussion with me. Armond Denny MD, [facility] Staff Manager Group Home janitorial tech * Armond Denny MD - 07/02/2024 6:17 AM EDT Inpatient Cardiology Progress Note Patient Name: Brian Rodriguez Date of Admission: 06/30/2024 ( Hospital Day 2 days ) Service: S2 ID: Brian Rodriguez is a 74 y.o. male with PMHx of HTN, HLD, migraines, DM2, and UC who presented [facility] for chest pain and was transferred to [facility] for NSTEMI found to [...] 1809 PROBNP 2,259* Trops: OSH 4143 >20,000>> [facility] 1234 and 1274 06/30 [...] to exclude urinary tract infection. Cardiac Catheterization: ([facility]) RIGHT dominance LVEDP 10 Artery Lesion [...] DM2, and UC who was transferred to [facility] for NSTEMI and now [...] Ronel Hensley MD Internal Medicine PGY-1 Pager [phone], M1-S2 Service CARDIOLOGY STAFF NOTE I have personally interviewed and examined the patient and reviewed appropriate data, including labs, ECGs and other diagnostic studies. I agree with the principal findings documented above. The assessment and plan were formulated in discussion with me. Armond Denny MD, [facility] Staff Manager Group Home janitorial tech * Armond Denny MD - 07/01/2024 6:15 AM EDT Inpatient Cardiology Progress Note Patient Name: Brian Rodriguez Date of Admission: 06/30/2024 ( Hospital Day 1 day ) Service: S2 ID: Brian Rodriguez is a 74 y.o. male with PMHx of HTN, HLD, migraines, DM2, and UC who presented [facility] for chest pain and was transferred to [facility] for NSTEMI found to have HFrEF. Active Problems: Active Hospital Problems Diagnosis NSTEMI (non-ST elevated myocardial infarction) Resolved Hospital Problems No resolved problems to display. 24 hr events: Yesterday - transferred to [facility] for NSTEMI Overnight - [...] 1809 PROBNP 2,259* Trops: OSH 4143 >20,000>> [facility] 1234 and 1274 last [...] DM2, and UC who was transferred to [facility] for NSTEMI and now [...] 7.3. Will need outpatient follow up for intermediate designer changes. - holding home glipizide and metformin [...] Ronel Hensley MD Internal Medicine PGY-1 Pager [phone], M1-S2 Service CARDIOLOGY STAFF NOTE I have personally interviewed and examined the patient and reviewed appropriate data, including labs, ECGs and other diagnostic studies. I agree with the principal findings documented above. The assessment and plan were formulated in discussion with me. Plan for cath today and introduction of full complement of medical therapies for ACS/HFrEF. Armond Denny MD, [facility] Staff Manager Group Home janitorial tech documented in this encounter H&P Notes * Lynette Díazsera Woodard, MACHINE STAMPER - 07/01/2024 9:33 AM EDT Images from [...] by Dowd's biplane. 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 The anterior wall is hypokinetic. [...] PCP: Deacon Watters APRN PCP phone #: [phone] ID/Chief Complaint: Brian Rodriguez is a 74 y.o. male with PMHx of HTN, HLD, migraines, DM2, and UC who presented to [facility] for chest pain and was transferred to [facility] for NSTEMI. History of [...] infarction) Ulcerative colitis Colonoscopy 04/08/10 (Dr. Gomes [facility]) - inflammation only within the rectum and sigmoid; extent of the exam was to the hepatic flexure; biopsies proximal to the sigmoid nl Repeat exam 11/27/11 ([facility]): mildly active colitis in [...] ascending colon. Several HPs and one TA. [place] 03/2022 - [place] 1 limited to rectosigmoid, [...] in the last 7068 hours. Invalid input(s): [id number] Heme: No results for input(s): LDH, HAPTOGLOBIN, [...] DM2, and UC who was transferred to [facility] for NSTEMI. Given Brian's [...] Admit to Cardiology, S2 Team Pager # [phone] #NSTEMI > trops elevated to 4143 and 20,000 at OSH - s/p ASA and Plavix load - heparin gtt - continue 81 mg ASA - continue 75 mg plavix - repeat EKG with posterior leads - restarted atorvastatin 80 mg - TTE pending - trending trops here - NPO at midnight for [facility] tomorrow #Migraines - holding propranolol for [...] Operative Note Patient Name: Brian Rodriguez : [id number] MR#: [id number] Case Date: 07/01/2024 Surgeon: Surgeons and Role: [...] 07/01/2024 12:11 PM EDT Brian completed a [place] Advanced directive and stated that if he [...] surrogate would be surrogate decision maker per [place] surrogate decision making law. (Only good for 180 days) Any patient receiving care in [place] must abide by [place] law. The hierarchy for surrogate decision making is: (a) Patient???s spouse or civil union partner unless there is a divorce proceeding, separation agreement, or restraining order limiting that person???s relationship with the patient. (b) Any adult son or daughter of the patient. Sabrina Eisenbreg (c) Either parent of the patient. (d) Any adult brother or sister of the patient. (e) Any adult grandchild of the patient. (f) Any grandparent of the patient. (g) Any adult aunt, uncle, niece, or nephew of the patient. (h) A close friend of the patient. (i) The agent with financial power of commercial real estate attorney or a conservator appointed in accordance [...] or living in a senior living (including now)?: No In the past 12 [...] DME: none Home Address confirmed as: [address] [place] [address] Social & Family Supports: All names listed below confirmed with patient as current and correct Extended Emergency Contact Information Primary Emergency Contact: Sabrina Eisenberg Address: [address] [place] [phone] [facility] Mobile Relation: Child Secondary Emergency Contact: Enrique [...] Yes ; Prescription Coverage: Yes Preferred Pharmacy: [id number] - [facility], [place] - [address] [facility] [address] [facility] [place] [address] Status: Patient is a : No Primary Care Provider confirmed: Deacon Watters, JAZMINE [phone] Potential Needs for Transition of Care: none [...] AM EDT Office Visit [place] [address] Dion Osullivan MD [facility] [place] [address] 09/01/2024 9:40 AM EDT Office Visit Cardiology at [address] [phone] Franky Shaver MD [facility] [place] [address] 09/01/2024 11:20 AM EDT Office Visit Dermatology at [place] [address] [place] [address] Gómez Mercer MD [facility] [place] [address] 09/21/2024 2:45 PM EDT Office Visit Pain [place] [phone] Trung Hoyos MD [facility] [place] [address] Scheduled Referrals Name Type Priority Associated Diagnoses [...] PM EDT URINALYSIS BEAKER MICROSCPIC REFLEX EXAM ([facility]) Routine 07/03/2024 3:02 PM EDT URINALYSIS [...] CARE TEST O CEE Performing Organization Address City/[facility]/ZIP Co de Phone Number [facility] [place] [address] * (ABNORMAL) POC, GLUCOSE (07/04/2024 11:55 AM EDT) Glucometer, POC 287(H) 65 - 199 mg/dL 07/04/2024 11:55 AM EDT [facility] Comment:Supplemental ranges: <140 mg/dL before meals <180 mg/dL all other times of the day. Blood CAPILLARY BLOOD / Unknown 07/04/2024 11:55 AM EDT 07/04/2024 11:55 AM EDT Armond Denny MD POINT OF CARE TEST O RDERAOMAR Performing Organization Address City/[facility]/ZIP Co de Phone Number [facility] [place] [address] * (ABNORMAL) POC, GLUCOSE (07/04/2024 11:18 AM EDT) Glucometer, POC 259(H) 65 - 199 mg/dL 07/04/2024 11:32 AM EDT [facility] Comment:Supplemental ranges: <140 mg/dL before meals <180 mg/dL all other times of the day. Blood CAPILLARY BLOOD / Unknown 07/04/2024 11:18 AM EDT 07/04/2024 11:32 AM EDT Armond Denny MD POINT OF CARE TEST O RDERABLES Performing Organization Address City/[facility]/ZIP Co de Phone Number [facility] [place] [address] * POC, GLUCOSE (07/04/2024 8:04 AM EDT) Glucometer, POC 111 65 - 199 mg/dL 07/04/2024 8:04 AM EDT [facility] Comment:Supplemental ranges: <140 mg/dL before meals <180 mg/dL all other times of the day. Blood CAPILLARY BLOOD / Unknown 07/04/2024 8:04 AM EDT 07/04/2024 8:04 AM EDT Armond Denny MD POINT OF CARE TEST O RDERABLES Performing Organization Address [facility] Co de Phone Number [facility] [place] [address] * Magnesium (07/04/2024 1:43 AM EDT) Magnesium 0.80 0.69 - 1.07 mMol/L 07/04/2024 2:23 AM EDT [facility] Blood VENOUS BLOOD SPECIMEN / Unknown IP Care Team Draw / Unknown 07/04/2024 1:43 AM EDT 07/04/2024 1:52 AM EDT Triston Godinez MD CHEMISTRY ORDERABLES Performing Organization Address City/[facility]/ZIP Co de Phone Number [facility] [place] [address] * (ABNORMAL) Basic Metabolic Panel (07/04/2024 1:43 [...] AM EDT Triston Godinez MD CHEMISTRY ORDERABLES [facility] [place] [address] * (ABNORMAL) CBC (with Diff) (07/04/2024 1:43 [...] - 32.1 pg 07/04/2024 2:00 AM EDT [facility] Mean Cell Hemoglobin Concentration 33.3 32.0 - 35.7 g/dL 07/04/2024 2:00 AM EDT [facility] Platelet 145 145 - 357 x10(3)/mc L 07/04/2024 2:00 AM EDT [facility] Mean Platelet Volume 11.5 7.6 - 12.9 fL 07/04/2024 2:00 AM EDT [facility] RDW Standard Deviation 48.2(H) 36.0 - 45.0 fL 07/04/2024 2:00 AM EDT [facility] RDW coefficient of variation 13.1 11.4 - 13.8 % 07/04/2024 2:[facility] NRBC% auto 0.0 % [...] - 0.40 x10(3)/mc L 07/04/2024 2:00 AM [facility] Basophil % 0.6 % 07/04/2024 2:00 AM [facility] Baso Absolute 0.03 0.00 - 0.10 x10(3)/mc L 07/04/2024 2:00 AM [facility] Immature Gran % 0.4 % 2:00 AM [facility] Immature Gran Absolute 0.02 0.00 - 0.04 x10(3)/mc L 07/04/2024 2:00 AM [facility] Blood VENOUS BLOOD SPECIMEN / Unknown IP Care Team Draw / Unknown 07/04/2024 1:43 AM EDT 07/04/2024 1:52 AM EDT Triston Godinez MD HEMATOLOGY ORDERABLE S Performing Organization Address [facility] Co de Phone Number [facility] [place] [address] * (ABNORMAL) POC, GLUCOSE (07/03/2024 8:02 PM EDT) Glucometer, POC 251(H) 65 - 199 mg/dL 07/03/2024 8:02 PM EDT [facility] Comment:Supplemental ranges: <140 mg/dL before meals <180 mg/dL all other times of the day. Blood CAPILLARY BLOOD / Unknown 07/03/2024 8:02 PM EDT 07/03/2024 8:02 PM EDT Armond Denny MD POINT OF CARE TEST O CEE Performing Organization Address [facility] Co de Phone Number [facility] [place] [address] * (ABNORMAL) POC, GLUCOSE (07/03/2024 4:47 PM EDT) Glucometer, POC 217(H) 65 - 199 mg/dL 07/03/2024 4:47 PM EDT [facility] Comment:Supplemental ranges: <140 mg/dL before meals <180 mg/dL all other times of the day. Blood CAPILLARY BLOOD / Unknown 07/03/2024 4:47 PM EDT 07/03/2024 4:47 PM EDT Armond Denny MD POINT OF CARE TEST O CEE Performing Organization Address [facility] Co de Phone Number [facility] [place] [address] * (ABNORMAL) Urine culture (07/03/2024 3:02 PM [...] Sensitive Armond Denny MD MICROBIOLOGY - [facility] AL ORDERABLES [facility] [place] [address] * (ABNORMAL) Urinalysis Microscopic Reflex to Culture [...] Denny MD URINE ORDERABLES Performing Organization Address City/[facility]/ZIP Co de Phone Number [facility] [place] [address] * Urinalysis Microscopic with Reflex to Culture (07/03/2024 3:02 PM EDT) Urine URINE SPECIMEN OBTAINED BY CLEAN CATCH PROCEDURE / Unknown Non Blood Collection / Unknown 07/03/2024 3:02 PM EDT 07/03/2024 3:13 PM EDT Armond Denny MD URINE ORDERABLES Performing Organization Address [facility]/ZIP Co de Phone Number [facility] [place] [address] * (ABNORMAL) Urinalysis with reflex Culture (07/03/2024 [...] PM EDT [facility] Specific Sophia Urine Automated 1.024 1.005 - 1.030 07/03/2024 [...] MD URINE ORDERABLES [facility] [place] [address] * POC, GLUCOSE (07/03/2024 11:21 AM EDT) [facility] Signature Glucometer, POC 177 65 - 199 mg/dL 07/03/2024 11:21 AM EDT [facility] Comment:Supplemental ranges: <140 mg/dL before meals <180 mg/dL all other times of the day. Blood CAPILLARY BLOOD / Unknown 07/03/2024 11:21 AM EDT 07/03/2024 11:21 AM EDT Armond Denny MD POINT OF CARE TEST O RDERABLES Performing Organization Address City/[facility]/ZIP Co de Phone Number [facility] [place] [address] * POC, GLUCOSE (07/03/2024 7:24 AM EDT) Glucometer, POC 124 65 - 199 mg/dL 07/03/2024 7:24 AM EDT [facility] Comment:Supplemental ranges: <140 mg/dL before meals <180 mg/dL all other times of the day. Blood CAPILLARY BLOOD / Unknown 07/03/2024 7:24 AM EDT 07/03/2024 7:24 AM EDT Armond Denny MD POINT OF CARE TEST O RDERABLES Performing Organization Address [facility]/ZIP Co de Phone Number [facility] [place] [address] * Magnesium (07/03/2024 4:02 AM EDT) Magnesium 0.86 0.69 - 1.07 mMol/L 07/03/2024 4:41 AM EDT [facility] Blood VENOUS BLOOD SPECIMEN / Unknown IP Care Team Draw / Unknown 07/03/2024 4:02 AM EDT 07/03/2024 4:07 AM EDT Triston Godinez MD CHEMISTRY ORDERABLES Performing Organization Address City/[facility]/ZIP Co de Phone Number [facility] [place] [address] * Basic Metabolic Panel (07/03/2024 4:02 AM EDT) Glucose 146 65 - 199 mg/dL 07/03/2024 4:41 AM [facility] Comment:Glucose Concentratio n >=200 mg/dL plus symptoms is consistent with Diabetes Mellitus. Blood Urea Nitrogen 15 10 - 20 mg/dL 07/03/2024 4:41 AM [facility] Creatinine 1.25 0.80 - 1.50 mg/dL 07/03/2024 4:41 AM [facility] Sodium 138 135 - 145 mMol/L 07/03/2024 4:41 AM [facility] Potassium 3.6 3.5 - 5.0 mMol/L 07/03/2024 4:41 AM [facility] Chloride 105 98 - 107 mMol/L 07/03/2024 4:41 AM [facility] Carbon Dioxide 22 22 - 31 mMol/L 07/03/2024 4:41 AM [facility] Anion Gap 11 5 - 15 mMol/L 07/03/2024 4:41 AM [facility] Calcium 9.2 8.5 - 10.5 mg/dL 07/03/2024 4:41 AM [facility] Est Glomerular Filtration Rate - Male 60 mL/min/1. 73 m?? 07/03/2024 4:41 AM [facility] Comment: [...] AM EDT Triston Godinez MD CHEMISTRY ORDERABLES [facility] [place] [address] * (ABNORMAL) CBC (with Diff) (07/03/2024 4:02 AM EDT) White Blood Cell 5.90 4.00 - 9.50 x10(3)/mc L 07/03/2024 4:13 AM EDT [facility] Red Blood Cell 3.27(L) 4.58 - 5.54 x10(6)/mc L 07/03/2024 4:13 AM EDT [facility] Hemoglobin 11.0(L) 13.7 - 16.5 g/dL 07/03/2024 4:13 AM [facility] Hematocrit 33.1(L) 40.5 - 48.5 % 07/03/2024 4:13 AM EDT [facility] Mean Cell Volume 101.2(H) 82.9 - 93.1 fL 07/03/2024 4:13 AM [facility] Mean Cell Hemoglobin 33.6(H) 27.5 - 32.1 pg 07/03/2024 4:13 AM [facility] Mean Cell Hemoglobin Concentration 33.2 32.0 - 35.7 g/dL 07/03/2024 4:13 [facility] Platelet 156 145 - 357 x10(3)/mc L 07/03/2024 4:13 AM EDT [facility] Mean Platelet Volume 11.3 7.6 - 12.9 fL 07/03/2024 4:13 AM [facility] RDW Standard Deviation 47.5(H) 36.0 - 45.0 fL 07/03/2024 4:13 AM [facility] RDW coefficient of variation 12.7 11.4 - 13.8 % 07/03/2024 4:13 AM [facility] NRBC% auto 0.0 % 07/03/2024 4:13 AM [facility] NRBC Absolute 0.00 0.00 - 0.00 x10(3)/mc L 07/03/2024 4:13 AM [facility] Neutrophil % 70.0 % 07/03/2024 4:13 AM [facility] Neutrophil Absolute 4.13 1.70 - 6.10 x10(3)/mc L 07/03/2024 4:13 AM [facility] Lymph % 18.3 % 07/03/2024 4:13 AM [facility] Lymph Absolute 1.08 0.90 - 3.20 x10(3)/mc L 07/03/2024 4:13 AM [facility] Monocyte % 8.5 % 07/03/2024 4:13 AM [facility] Monocyte Absolute 0.50 0.30 - 0.90 x10(3)/mc L 07/03/2024 4:13 AM [facility] Eos % 2.4 % 07/03/2024 4:13 AM [facility] Eos Absolute 0.14 0.00 - 0.40 x10(3)/mc L 07/03/2024 4:13 AM [facility] Basophil % 0.5 % 07/03/2024 4:13 AM [facility] Baso Absolute 0.03 0.00 - 0.10 x10(3)/mc L 07/03/2024 4:13 AM [facility] Immature Gran % 0.3 % 4:13 AM [facility] Immature Gran Absolute 0.02 0.00 - 0.04 x10(3)/mc L 07/03/2024 4:13 AM [facility] Blood VENOUS BLOOD SPECIMEN / Unknown IP Care Team Draw / Unknown 07/03/2024 4:02 AM EDT 07/03/2024 4:07 AM EDT Triston Godinez MD HEMATOLOGY ORDERABLE S [facility] [place] [address] * (ABNORMAL) POC, GLUCOSE (07/02/2024 8:45 PM EDT) Glucometer, POC 271(H) 65 - 199 mg/dL 07/02/2024 8:46 PM EDT [facility] Comment:Supplemental ranges: <140 mg/dL before meals <180 mg/dL all other times of the day. Blood CAPILLARY BLOOD / Unknown 07/02/2024 8:45 PM EDT 07/02/2024 8:46 PM EDT Armond Denny MD POINT OF CARE TEST O RDERABLES Performing Organization Address City/[facility]/ZIP Co de Phone Number [facility] [place] [address] * (ABNORMAL) POC, GLUCOSE (07/02/2024 4:18 PM EDT) Glucometer, POC 213(H) 65 - 199 mg/dL 07/02/2024 4:19 PM EDT [facility] Comment:Supplemental ranges: <140 mg/dL before meals <180 mg/dL all other times of the day. Blood CAPILLARY BLOOD / Unknown 07/02/2024 4:18 PM EDT 07/02/2024 4:19 PM EDT Armond Denny MD POINT OF CARE TEST O RDERAOMAR [facility] [place] [address] * (ABNORMAL) POC, GLUCOSE (07/02/2024 11:21 AM EDT) Glucometer, POC 234(H) 65 - 199 mg/dL 07/02/2024 11:21 AM EDT [facility] Comment:Supplemental ranges: <140 mg/dL before meals <180 mg/dL all other times of the day. Blood CAPILLARY BLOOD / Unknown 07/02/2024 11:21 AM EDT 07/02/2024 11:21 AM EDT Armond Denny MD POINT OF CARE TEST O RDERABLES Performing Organization Address City/[facility]/ZIP Co de Phone Number [facility] [place] [address] * POC, GLUCOSE (07/02/2024 7:28 AM EDT) Glucometer, POC 171 65 - 199 mg/dL 07/02/2024 7:28 AM EDT [facility] Comment:Supplemental ranges: <140 mg/dL before meals <180 mg/dL all other times of the day. Blood CAPILLARY BLOOD / Unknown 07/02/2024 7:28 AM EDT 07/02/2024 7:28 AM EDT Armond Denny MD POINT OF CARE TEST O RDERABLES Performing Organization Address [facility]/ZIP Co de Phone Number [facility] [place] [address] * Magnesium (07/02/2024 7:12 AM EDT) Magnesium 0.89 0.69 - 1.07 mMol/L 07/02/2024 8:09 AM EDT [facility] Blood VENOUS BLOOD SPECIMEN / Unknown IP Care Team Draw / Unknown 07/02/2024 7:12 AM EDT 07/02/2024 7:19 AM EDT Triston Godinez MD CHEMISTRY ORDERABLES Performing Organization Address City/[facility]/ZIP Co de Phone Number [facility] [place] [address] * Basic Metabolic Panel (07/02/2024 7:12 AM EDT) Glucose 161 65 - 199 mg/dL 07/02/2024 8:09 AM [facility] Comment:Glucose Concentratio n >=200 mg/dL plus symptoms is consistent with Diabetes Mellitus. Blood Urea Nitrogen 13 10 - 20 mg/dL 07/02/2024 8:09 AM [facility] Creatinine 1.18 0.80 - 1.50 mg/dL 07/02/2024 8:09 AM [facility] Sodium 136 135 - 145 mMol/L 07/02/2024 8:09 AM [facility] Potassium 3.6 3.5 - 5.0 mMol/L 07/02/2024 8:09 AM [facility] Chloride 104 98 - 107 mMol/L 07/02/2024 8:09 AM [facility] Carbon Dioxide 24 22 - 31 mMol/L 07/02/2024 8:09 AM [facility] Anion Gap 8 5 - 15 mMol/L 07/02/2024 8:09 AM [facility] Calcium 8.8 8.5 - 10.5 mg/dL 07/02/2024 8:09 AM [facility] Est Glomerular Filtration Rate - Male 64 mL/min/1. 73 m?? 07/02/2024 8:09 AM [facility] Comment: [...] AM EDT Triston Godinez MD CHEMISTRY ORDERABLES [facility] [place] [address] * (ABNORMAL) CBC (with Diff) (07/02/2024 7:12 AM EDT) White Blood Cell 5.99 4.00 - 9.50 x10(3)/mc L 07/02/2024 7:41 AM EDT [facility] Red Blood Cell 3.36(L) 4.58 - 5.54 x10(6)/mc L 07/02/2024 7:41 AM EDT [facility] Hemoglobin 11.3(L) 13.7 - 16.5 g/dL 07/02/2024 7:41 AM [facility] Hematocrit 34.3(L) 40.5 - 48.5 % 07/02/2024 7:41 AM EDT [facility] Mean Cell Volume 102.1(H) 82.9 - 93.1 fL 07/02/2024 7:41 AM [facility] Mean Cell Hemoglobin 33.6(H) 27.5 - 32.1 pg 07/02/2024 7:41 AM [facility] Mean Cell Hemoglobin Concentration 32.9 32.0 - 35.7 g/dL 07/02/2024 7:41 [facility] Platelet 155 145 - 357 x10(3)/mc L 07/02/2024 7:41 AM [facility] Mean Platelet Volume 11.3 7.6 - 12.9 fL 07/02/2024 7:41 AM [facility] RDW Standard Deviation 48.2(H) 36.0 - 45.0 fL 07/02/2024 7:41 AM [facility] RDW coefficient of variation 12.9 11.4 - 13.8 % 07/02/2024 7:41 AM [facility] NRBC% auto 0.0 % 07/02/2024 7:41 AM [facility] NRBC Absolute 0.00 0.00 - 0.00 x10(3)/mc L 07/02/2024 7:41 AM [facility] Neutrophil % 75.2 % 07/02/2024 7:41 AM [facility] Neutrophil Absolute 4.50 1.70 - 6.10 x10(3)/mc L 07/02/2024 7:41 AM [facility] Lymph % 14.0 % 07/02/2024 7:41 AM [facility] Lymph Absolute 0.84(L) 0.90 - 3.20 x10(3)/mc L 07/02/2024 7:41 AM [facility] Monocyte % 8.7 % 07/02/2024 7:41 AM [facility] Monocyte Absolute 0.52 0.30 - 0.90 x10(3)/mc L 07/02/2024 7:41 AM [facility] Eos % 1.3 % 07/02/2024 7:41 AM [facility] Eos Absolute 0.08 0.00 - 0.40 x10(3)/mc L 07/02/2024 7:41 AM [facility] Basophil % 0.5 % 07/02/2024 7:41 AM [facility] Baso Absolute 0.03 0.00 - 0.10 x10(3)/mc L 07/02/2024 7:41 AM [facility] Immature Gran % 0.3 % 7:41 AM [facility] Immature Gran Absolute 0.02 0.00 - 0.04 x10(3)/mc L 07/02/2024 7:41 AM [facility] Blood VENOUS BLOOD SPECIMEN / Unknown IP Care Team Draw / Unknown 07/02/2024 7:12 AM EDT 07/02/2024 7:19 AM EDT Triston Godinez MD HEMATOLOGY ORDERABLE S [facility] [place] [address] * CT Abdomen & Pelvis w Contrast (07/02/2024 3:13 AM EDT) WORKSTATION ID [id number] RAD Anatomical Region Laterality Modality Abdomen, Pelvis [...] have questions please contact the health career based intervention coordinator that requested your imaging first. ? Narrative [...] patients who have questions please contactthe health career based intervention coordinator that requested your imaging first. Triston Godinez MD IMG CT ORDERABLES * POC, GLUCOSE (07/01/2024 7:58 PM EDT) Glucometer, POC 84 65 - 199 mg/dL 07/01/2024 7:59 PM EDT [facility] Comment:Supplemental ranges: <140 mg/dL before meals <180 mg/dL all other times of the day. Blood CAPILLARY BLOOD / Unknown 07/01/2024 7:58 PM EDT 07/01/2024 7:59 PM EDT Armond eDnny MD POINT OF CARE TEST O CEE Performing Organization Address City/[facility]/ZIP Co de Phone Number [facility] [place] [address] * POC, GLUCOSE (07/01/2024 6:41 PM EDT) Glucometer, POC 91 65 - 199 mg/dL 07/01/2024 6:41 PM EDT [facility] Comment:Supplemental ranges: <140 mg/dL before meals <180 mg/dL all other times of the day. Blood CAPILLARY BLOOD / Unknown 07/01/2024 6:41 PM EDT 07/01/2024 6:41 PM EDT Armond Denny MD POINT OF CARE TEST O CEE Performing Organization Address [facility] Co de Phone Number [facility] [place] [address] * EKG 12 Lead (07/01/2024 5:24 PM EDT) Ventricular rate 77 BPM MUSE SYSTEM Atrial Rate 77 BPM MUSE SYSTEM P-R Interval 178 ms MUSE SYSTEM QRS Duration 138 ms MUSE SYSTEM Q-T Interval 418 ms MUSE SYSTEM QTC Calculated (Bezet) 473 ms MUSE SYSTEM Calculated P [place] 63 degrees MUSE SYSTEM Calculated R [place] 87 degrees MUSE SYSTEM Calculated T [place] 8 degrees MUSE SYSTEM INTERPRETATION Normal sinus [...] Modality Other Narrative 07/01/2024 7:47 PM EDT ?[facility] ? Cardiac Catheterization/Intervention Report ? Patient Name: Rodriguez, Brian Joya. ? Procedure Date: 07/01/2024 ? A #: [id number] ? Primary Physician: Lizzette Hayden ? Case #: [id number] ? File Name: [id number] ? Catheterization Order Number: [id number] ? [facility] ? Final Report [place], [place] ? Patient Name: ? Brian M. Rodriguez ?ID#: ?[id number] ? : ?[id number] ? Procedure Date: ? July 01, 2024 ? Case #: ? [id number] ? Room: ? 5 ? Case Physician: [...] procedure was Urgent. The indication for ?the livestock laborer visit is ACS less than or [...] ? A premounted 2.75 x [address] [place] (EILEEN) was deployed ? with a maximum [...] dose administered prior to arrival in the livestock laborer. ?Recommended anti-platelet/anti-thrombotic regimen: ?Continue aspirin 81 mg daily. ?Continue clopidogrel 75 mg daily. ?These recommendations are made at the time of the intervention. Patient ?and provider preferences or a changing clinical situation may require ?modification of this regimen. Consult [facility] Interventional Cardiology for ?questions. [...] any medical treatment. Consult ?http://tools.acc.org/DAPTriskapp/#!/content/calculator/ or [facility] ?Interventional Cardiology for questions [...] Procedure Note Lizzette Hayden MD - 07/14/2024 [facility] Cardiac Catheterization/Intervention Report Patient Name: Rodriguez, Brian M. Procedure Date: 07/01/2024 A #: [id number] Primary Physician: Lizzette Hayden Case #: [id number] File Name: [id number] Catheterization Order Number: [id number] [facility] FinalReport [place], [place] Patient Name: Brian Rodriguez ID#:[id number] :1950 Procedure Date: July 01, 2024 Case [...] diagnostic procedure was Urgent. The indicationfor the livestock laborer visit is ACS less than or [...] time was 37.0 minutes, dose area product keh545.00 Gy/cm2 and air kerma was 1,874 mGY. [...] The priority for the procedure was Urgent.The [facility] indication for the procedure was NSTE-ACS. Syntax [...] The lesion was predilated with a 2.50mm [id number] MM balloon with a maximum inflation pressure of 14atmospheres. A premounted 2.75 x [address] [place] ([place]EN) wasdeployed with a maximum inflation pressure [...] dose administered prior to arrival in the livestock laborer. Recommended anti-platelet/anti-thrombotic regimen: Continue aspirin 81 mg daily. Continue clopidogrel 75 mg daily. These recommendations are made at the time of the intervention.Patient and provider preferences or a changing clinical situation mayrequire modification of this regimen. Consult [facility] Interventional Cardiologyfor questions. This [...] against any medical treatment.Consult http://tools.acc.org/DAPTriskapp/#!/content/calculator/ or [facility] Interventional Cardiology for questions [...] - 199 mg/dL 07/01/2024 11:35 AM EDT [facility] Comment:Supplemental ranges: <140 mg/dL before meals <180 mg/dL all other times of the day. Blood CAPILLARY BLOOD / Unknown 07/01/2024 11:35 AM EDT 07/01/2024 11:35 AM EDT Armond Denny MD POINT OF CARE TEST O RDERABLES [facility] [place] [address] * (ABNORMAL) Hemogram (07/01/2024 10:32 AM EDT) White Blood Cell 7.02 4.00 - 9.50 x10(3)/mc L 07/01/2024 11:20 AM EDT [facility] Red Blood Cell 3.68(L) 4.58 - 5.54 x10(6)/mc L 07/01/2024 11:20 AM EDT [facility] Hemoglobin 12.2(L) 13.7 - 16.5 [...] - 357 x10(3)/mc L 07/01/2024 11:20 AM [facility] Mean Platelet Volume 11.4 7.6 - 12.9 fL 07/01/2024 11:20 AM [facility] RDW Standard Deviation 46.5(H) 36.0 - 45.0 fL 07/01/2024 11:20 AM [facility] RDW coefficient of variation 12.9 11.4 - 13.8 % 07/01/2024 11:20 AM [facility] NRBC% auto 0.0 % 07/01/2024 11:20 AM [facility] NRBC Absolute 0.00 0.00 - 0.00 x10(3)/mc L 07/01/2024 11:20 AM [facility] Blood VENOUS BLOOD SPECIMEN / Unknown IP Care Team Draw / Unknown 07/01/2024 10:32 AM EDT 07/01/2024 10:54 AM EDT Armond Denny MD HEMATOLOGY ORDERABLE S [facility] [place] [address] * Heparin (unfractionated) Level (07/01/2024 10:32 AM [...] MD HEMATOLOGY ORDERABLE S Performing Organization Address [facility] Co de Phone Number [facility] [place] [address] * POC, GLUCOSE (07/01/2024 7:18 AM EDT) [facility] Signature Glucometer, POC 105 65 - 199 mg/dL 07/01/2024 7:19 AM EDT [facility] Comment:Supplemental ranges: <140 mg/dL before meals <180 mg/dL all other times of the day. Blood CAPILLARY BLOOD / Unknown 07/01/2024 7:18 AM EDT 07/01/2024 7:19 AM EDT Triston Godinez MD POINT OF CARE TEST O RDERABLES Performing Organization Address City/[facility] Co de Phone Number [facility] [place] [address] * Heparin (unfractionated) Level (07/01/2024 3:15 AM EDT) Pathologist [facility] UF Heparin 0.36 IU/mL 07/01/2024 4:23 AM EDT [facility] Comment: [...] HEMATOLOGY ORDERABLE S [facility] [place] [address] * (ABNORMAL) CBC (with Diff) (07/01/2024 3:15 AM EDT) Pathologist [facility] White Blood Cell 5.82 4.00 - 9.50 x10(3)/mc L 07/01/2024 3:54 AM EDT [facility] Red Blood Cell 3.60(L) 4.58 - 5.54 x10(6)/mc L 07/01/2024 3:54 AM EDT [facility] Hemoglobin 11.9(L) 13.7 - 16.5 g/dL 07/01/2024 3:54 AM [facility] Hematocrit 35.6(L) 40.5 - 48.5 % 07/01/2024 3:54 AM [facility] Mean Cell Volume 98.9(H) 82.9 - 93.1 fL 07/01/2024 3:54 AM [facility] Mean Cell Hemoglobin 33.1(H) 27.5 - 32.1 pg 07/01/2024 3:54 AM [facility] Mean Cell Hemoglobin Concentration 33.4 32.0 - 35.7 g/dL 07/01/2024 3:54 AM [facility] Platelet 169 145 - 357 x10(3)/mc L 07/01/2024 3:54 AM [facility] Mean Platelet Volume 11.6 7.6 - 12.9 fL 07/01/2024 3:54 AM [facility] RDW Standard Deviation 46.3(H) 36.0 - 45.0 fL 07/01/2024 3:54 AM [facility] RDW coefficient of variation 12.8 11.4 - 13.8 % 07/01/2024 3:54 AM [facility] NRBC% auto 0.0 % 07/01/2024 3:54 AM [facility] NRBC Absolute 0.00 0.00 - 0.00 x10(3)/mc L 07/01/2024 3:54 AM [facility] Neutrophil % 66.6 % 07/01/2024 3:54 AM [facility] Neutrophil Absolute 3.87 1.70 - 6.10 x10(3)/mc L 07/01/2024 3:54 AM [facility] Lymph % 20.4 % 07/01/2024 3:54 AM [facility] Lymph Absolute 1.19 0.90 - 3.20 x10(3)/mc L 07/01/2024 3:54 AM [facility] Monocyte % 9.6 % 07/01/2024 3:54 AM EDT [facility] Monocyte Absolute 0.56 0.30 - 0.90 x10(3)/mc L 07/01/2024 3:54 AM EDT [facility] Eos % 2.6 % 07/01/2024 3:54 AM EDT [facility] Eos Absolute 0.15 0.00 - 0.40 x10(3)/mc L 07/01/2024 3:54 AM EDT [facility] Basophil % 0.5 % 07/01/2024 3:54 AM EDT [facility] Baso Absolute 0.03 0.00 - 0.10 x10(3)/mc L 07/01/2024 3:54 AM EDT [facility] Immature Gran % 0.3 % 3:54 AM EDT [facility] Immature Gran Absolute 0.02 0.00 - 0.04 x10(3)/mc L 07/01/2024 3:54 AM EDT [facility] Blood VENOUS BLOOD SPECIMEN / Unknown IP Care Team Draw / Unknown 07/01/2024 3:15 AM EDT 07/01/2024 3:37 AM EDT Triston Godinez MD HEMATOLOGY ORDERABLE S [facility] [place] [address] * Magnesium (06/30/2024 11:25 PM EDT) Magnesium 0.84 0.69 - 1.07 mMol/L 07/01/2024 12:14 AM EDT [facility] Blood VENOUS BLOOD SPECIMEN / Unknown IP Care Team Draw / Unknown 06/30/2024 11:25 PM EDT 06/30/2024 11:47 PM EDT Triston Godinez MD CHEMISTRY ORDERABLES [facility] [place] [address] * (ABNORMAL) Basic Metabolic Panel (06/30/2024 11:25 PM EDT) Glucose 145 65 - 199 mg/dL 07/01/2024 12:14 AM [facility] Comment:Glucose Concentratio n >=200 mg/dL plus symptoms is consistent with Diabetes Mellitus. Blood Urea Nitrogen 10 10 - 20 mg/dL 07/01/2024 12:14 AM [facility] Creatinine 1.02 0.80 - 1.50 mg/dL 07/01/2024 12:14 AM [facility] Sodium 141 135 - 145 mMol/L 07/01/2024 12:14 AM [facility] Potassium 3.4(L) 3.5 - 5.0 mMol/L 07/01/2024 12:14 AM [facility] Chloride 106 98 - 107 mMol/L 07/01/2024 12:14 AM [facility] Carbon Dioxide 25 22 - 31 mMol/L 07/01/2024 12:14 AM [facility] Anion Gap 10 5 - 15 mMol/L 07/01/2024 12:14 AM [facility] Calcium 9.2 8.5 - 10.5 mg/dL 07/01/2024 12:14 AM [facility] Est Glomerular Filtration Rate - Male 76 mL/min/1. 73 m?? 07/01/2024 12:14 AM [facility] Comment: [...] Foundation Fasting Status 07/01/2024 12:14 AM EDT [facility] Blood VENOUS BLOOD SPECIMEN / Unknown IP Care Team Draw / Unknown 06/30/2024 11:25 PM EDT 06/30/2024 11:47 PM EDT Triston Godinez MD CHEMISTRY ORDERABLES [facility] [place] [address] * (ABNORMAL) Troponin-T, Yuriy Sensitivity 3 Hour (06/30/2024 11:25 PM EDT) Pathologist [facility] Troponin-T, High Sensitivity 1,274(H) <=22 ng/L 07/01/2024 [...] troponin value can be found in the [facility] Test Catalog Troponin - [email or web address].org/catalogs/565/files/93615 Reference: Fourth [place] Definition of Myocardial Infarction. Journal of the [place] [employer] 2018;72:1182-5714 Troponin-T, HS 3 hr delta 65 ng/L [...] MD CHEMISTRY ORDERABLES [facility] [place] [address] * (ABNORMAL) Troponin-T, High Sensitivity 1 Hour (06/30/2024 8:22 PM EDT) [facility] Troponin-T, High Sensitivity 1,234(H) <=22 ng/L 06/30/2024 [...] troponin value can be found in the [facility] Test Catalog Troponin - [email or web address]/catalogs/565/files/94516 Reference: Fourth [place] Definition of Myocardial Infarction. Journal of the [place] [employer] 2018;72:8566-7614 Troponin-T, HS 1 hr delta 06/30/2024 9:22 PM EDT [facility] Comment:Delta troponin value not calculated, sample collected outside of delta calculation time limit. Blood VENOUS BLOOD SPECIMEN / Unknown Venipuncture / Unknown 06/30/2024 8:22 PM EDT 06/30/2024 8:40 PM EDT Triston Godinez MD CHEMISTRY ORDERABLES Performing Organization Address [facility]/ZIP Co de Phone Number [facility] [place] [address] * POC, GLUCOSE (06/30/2024 7:56 PM EDT) Glucometer, POC 144 65 - 199 mg/dL 06/30/2024 7:57 PM EDT [facility] Comment:Supplemental ranges: <140 mg/dL before meals <180 mg/dL all other times of the day. Blood CAPILLARY BLOOD / Unknown 06/30/2024 7:56 PM EDT 06/30/2024 7:57 PM EDT Triston Godinez MD POINT OF CARE TEST O RDERABLES Performing Organization Address [facility]/ZIP Co de Phone Number [facility] [place] [address] * XR Abdomen Flat & Upright (06/30/2024 6:56 PM EDT) WORKSTATION ID [id number] RAD Anatomical Region Laterality Modality Abdomen N/A Digital Radiogra phy Impressions 06/30/2024 9:12 PM EDT No obstruction or perforation. Thank you for letting us participate in the care of this patient. ??If you are a health care provider and have any questions regarding this report, please contact the number below. ??For patients who have questions please contact the health career based intervention coordinator that requested your imaging first. ? Electronically signed by: Shireen Hurtado MD, [facility] ([phone]), at 06/30/2024 9:12 PM Narrative 06/30/2024 9:12 [...] patients who have questions please contactthe health career based intervention coordinator that requested your imaging first. Electronically signed by: Shireen Hurtado MD, [facility]([phone]), at 06/30/2024 9:12 PM Triston Godinez MD IMG DX ORDERABLES * (ABNORMAL) Troponin-T, High Sensitivity (06/30/2024 6:09 PM EDT) [facility] Troponin-T, High Sensitivity Initial 1,209([facility] ) <=22 ng/L 06/30/2024 7:23 PM EDT [...] troponin value can be found in the [facility] Test Catalog Troponin - https://[email or web address].org/catalogs/565/files/[email or web address] Reference: Fourth [place] Definition of Myocardial Infarction. Journal of the [place] [employer] 2018;72:7181-8911 Blood VENOUS BLOOD SPECIMEN / Unknown Venipuncture / Unknown 06/30/2024 6:09 PM EDT 06/30/2024 6:18 PM EDT Triston Godinez MD CHEMISTRY ORDERABLES [facility] [place] [address] * (ABNORMAL) Basic Metabolic Panel (06/30/2024 6:09 PM EDT) Glucose 06/30/2024 8:08 PM EDT [facility] Comment:Insufficient sample. Informed Alli Meyers at 20:07, 06.30.2024. Blood Urea Nitrogen 10 10 - 20 mg/dL 06/30/2024 8:08 PM EDT [facility] Creatinine 0.98 0.80 - 1.50 mg/dL 06/30/2024 8:08 PM EDT [facility] Sodium 140 135 - 145 mMol/L 06/30/2024 [facility] Potassium 4.2 3.5 - 5.0 mMol/L 06/30/2024 8:08 PM [facility] Chloride 105 98 - 107 mMol/L 06/30/2024 8:08 PM [facility] Carbon Dioxide 21(L) 22 - 31 mMol/L 06/30/2024 8:08 PM EDT [facility] Anion Gap 14 5 - 15 mMol/L 06/30/2024 8:08 PM [facility] Calcium 06/30/2024 8:08 PM [facility] Comment:Insufficient sample. Informed Alli Vanasse at 20:07, 06.30.2024. Est Glomerular Filtration Rate - Male 80 mL/min/1. 73 m?? 06/30/2024 8:08 PM EDT [facility] Comment: [...] Fasting Status Yes 06/30/2024 8:08 PM EDT [facility] Blood VENOUS BLOOD SPECIMEN / Unknown Venipuncture / Unknown 06/30/2024 6:09 PM EDT 06/30/2024 6:18 PM EDT Triston Godinez MD CHEMISTRY ORDERABLES [facility] [place] [address] * Lipid Panel (Reflex Direct LDL) (06/30/2024 6:09 PM EDT) Cholesterol, Total 197 mg/dL 06/30/2024 6:51 PM T [facility] Comment: Desirable: < 200 mg/dL Borderline High: 200 - 239 mg/dL High: > or = 240 mg/dL Triglyceride 230 mg/dL 06/30/2024 6:51 PM T [facility] Comment: Normal: <150 mg/dL Borderline High: 150-199 mg/dL High: 200-499 mg/dL Very High: > or =500 mg/dL HDL Cholesterol 36 mg/dL 6:51 PM [facility] Comment:Males: High Risk: <4 0 mg/dL LDL Cholesterol 120 mg/dL 6:51 PM [facility] Comment: Desirable: <100 mg/dL Above Desirable: 100-129 mg/dL Borderline High: 130-159 mg/dL High: 160-189 mg/dL Very High: > or =190 mg/dL Note: LDL calculation updated to the NIH LDL formula as of 06/26/2024 Non-HDL Cholesterol 161 mg/dL 06/30/2024 6:51 PM [facility] Comment: Desirable: <130 mg/dL Above Desirable: 130-159 mg/dL Borderline High: 160-189 mg/dL High: 190-219 mg/dL Very High: > or = 220 mg/dL Blood VENOUS BLOOD SPECIMEN / Unknown Venipuncture / Unknown 06/30/2024 6:09 PM EDT 06/30/2024 6:18 PM EDT [facility] - 06/30/2024 6:51 PM EDT [...] ACC/AHA Guidelines (most recently Brianne et al. [facility] 08/26/22): * For individuals with atherosclerotic [...] MD CHEMISTRY ORDERABLES [facility] [place] [address] * (ABNORMAL) pro-Brain Natriuretic Peptide (06/30/2024 6:09 PM EDT) [facility] NT-proBNP 2,259(H) <=449 pg/mL 06/30/2024 6:51 PM EDT [facility] Blood VENOUS BLOOD SPECIMEN / Unknown Venipuncture / Unknown 06/30/2024 6:09 PM EDT 06/30/2024 6:18 PM EDT Triston Godinez MD CHEMISTRY ORDERABLES Performing Organization Address [facility] Co de Phone Number [facility] [place] [address] * TSH (06/30/2024 6:09 PM EDT) Pathologist [facility] Thyroid Stimulating Hormone 2.80 0.27 - 4.20 mcIU/mL 06/30/2024 6:51 PM EDT [facility] Blood VENOUS BLOOD SPECIMEN / Unknown Venipuncture / Unknown 06/30/2024 6:09 PM EDT 06/30/2024 6:18 PM EDT Triston Godinez MD CHEMISTRY ORDERABLES Performing Organization Address [facility] Co de Phone Number [facility] [place] [address] * Heparin (unfractionated) Level (06/30/2024 6:08 PM EDT) UF Heparin 0.07 IU/mL 06/30/2024 6:34 PM EDT [facility] Comment: Heparin [...] HEMATOLOGY ORDERABLE S [facility] [place] [address] * (ABNORMAL) CBC (with Diff) (06/30/2024 6:08 PM EDT) White Blood Cell 6.45 4.00 - 9.50 x10(3)/mc L 06/30/2024 6:36 PM EDT [facility] Red Blood Cell 3.78(L) 4.58 - 5.54 x10(6)/mc L 06/30/2024 6:36 PM EDT [facility] Hemoglobin 12.7(L) 13.7 - 16.5 g/dL 06/30/2024 6:36 PM EDT [facility] Hematocrit 38.0(L) 40.5 - 48.5 % 06/30/2024 6:36 PM EDT [facility] Mean Cell Volume 100.5(H) 82.9 - 93.1 fL 06/30/2024 6:36 PM EDT [facility] Mean Cell Hemoglobin 33.6(H) 27.5 - 32.1 pg 06/30/2024 6:36 PM EDT [facility] Mean Cell Hemoglobin Concentration 33.4 32.0 - 35.7 g/dL 06/30/2024 6:36 PM EDT [facility] Platelet 79(L) 145 - 357 x10(3)/mc L 06/30/2024 6:36 PM EDT [facility] Mean Platelet Volume 11.2 7.6 - 12.9 fL 06/30/2024 6:36 PM EDT [facility] RDW Standard Deviation 48.4(H) 36.0 - 45.0 fL 06/30/2024 6:36 PM EDT [facility] RDW coefficient of variation 13.0 11.4 - 13.8 % 06/30/2024 6:36 PM [facility] NRBC% auto 0.0 % 06/30/2024 6:36 PM EDT [facility] NRBC Absolute 0.00 0.00 - 0.00 x10(3)/mc L 06/30/2024 6:36 PM EDT [facility] Neutrophil % 71.2 % 06/30/2024 6:36 PM EDT [facility] Neutrophil Absolute 4.59 1.70 - 6.10 x10(3)/mc L 06/30/2024 6:36 PM EDT [facility] Lymph % 18.1 % 06/30/2024 6:36 PM EDT [facility] Lymph Absolute 1.17 0.90 - 3.20 x10(3)/mc L 06/30/2024 6:36 PM EDT [facility] Monocyte % 8.2 % 06/30/2024 6:36 PM [facility] Monocyte Absolute 0.53 0.30 - 0.90 x10(3)/mc L 06/30/2024 6:36 PM EDT [facility] Eos % 1.7 % 06/30/2024 6:36 PM EDT [facility] Eos Absolute 0.11 0.00 - 0.40 x10(3)/mc L 06/30/2024 6:36 PM EDT [facility] Basophil % 0.6 % 06/30/2024 6:36 PM EDT [facility] Baso Absolute 0.04 0.00 - 0.10 x10(3)/mc L 06/30/2024 6:36 PM EDT [facility] Immature Gran % 0.2 % 6:36 PM EDT [facility] Immature Gran Absolute 0.01 0.00 - 0.04 x10(3)/mc L 06/30/2024 6:36 PM EDT [facility] Blood VENOUS BLOOD SPECIMEN / Unknown Venipuncture / Unknown 06/30/2024 6:08 PM EDT 06/30/2024 6:18 PM EDT Triston Godinez MD HEMATOLOGY ORDERABLE S [facility] [place] [address] * (ABNORMAL) Hemoglobin A1c (06/30/2024 6:08 PM [...] red blood cell turnover may not be education courses sales representative of glycemic control. Reference Interval: [...] into estimated average glucose values. ??Diabetes Care 2008:31(8):9452-8492. Additional resources are available on the ADA website (diabetes.org). Triston Godinez MD CHEMISTRY ORDERABLES Performing Organization Address [facility] Co de Phone Number [facility] [place] [address] * POC, GLUCOSE (06/30/2024 5:58 PM EDT) Glucometer, POC 148 65 - 199 mg/dL 06/30/2024 5:58 PM EDT [facility] Comment:Supplemental ranges: <140 mg/dL before meals <180 mg/dL all other times of the day. Blood CAPILLARY BLOOD / Unknown 06/30/2024 5:58 PM EDT 06/30/2024 5:58 PM EDT Triston Godinez MD POINT OF CARE TEST O RDERABLES Performing Organization Address [facility] Co de Phone Number [facility] [place] [address] * EKG 12 Lead (06/30/2024 5:23 PM EDT) Ventricular rate 73 BPM MUSE SYSTEM Atrial Rate 300 BPM MUSE SYSTEM QRS Duration 72 ms MUSE SYSTEM Q-T Interval 404 ms MUSE SYSTEM QTC Calculated (Bezet) 445 ms MUSE SYSTEM Calculated P Gy[place] 71 degrees MUSE SYSTEM Calculated R [place] 65 degrees MUSE SYSTEM Calculated T [place]um 30 degrees MUSE SYSTEM INTERPRETATION Normal sinus [...] Godinez MD ECG ORDERABLES Performing Organization Address [facility]/State/ZIP Co de Phone Number MUSE SYSTEM [...] (non-ST elevation myocardial infarction) Exam Location: [facility]. ? Conclusions -Left ventricular systolic function is moderately reduced. The left ventricular ejection fraction is 36% by Dowd's biplane. The anterolateral and inferolateral barahona are akinetic. The anterior wall is hypokinetic. -Right ventricle is mildly dilated. Systolic function is normal. -No significant valve disease. -See report for additional findings. No prior study is available. Procedure Complete-[id number]. Image enhancement Optison was used for left [...] (non-ST elevation myocardial infarction) Exam Location: [facility]. Conclusions -Left ventricular systolic function is moderately reduced. The leftventricular ejection fraction is 36% by Dowd's biplane. The anterolateral andinferolateral barahona are akinetic. The anterior wall is hypokinetic. -Right ventricle is mildly dilated. Systolic function is normal. -No significant valve disease. -See report for additional findings. No prior study is available. Procedure Complete-[id number]. Image enhancement Optison was used for left [...] (Bezet) 460 ms MUSE SYSTEM Calculated P Gy[place]um 69 degrees MUSE SYSTEM Calculated R Gypsum 78 degrees MUSE SYSTEM Calculated T Gypsum 39 degrees MUSE SYSTEM INTERPRETATION Sinus rhythm Occasional Premature ventricular complexes Right bundle branch block Abnormal ECG No previous ECGs available Confirmed by MD Arthur, Gutierrez Boyd ([id number]) on 07/01/2024 9:55:31 AM MUSE SYSTEM 06/30/2024 3:53 PM EDT 07/01/2024 9:55 AM EDT Triston Godinez MD ECG ORDERABLES [facility] documented in this encounter Visit Diagnoses [...] Routine 08 (Given - Provider: Jenny Reddy, ROYN)1305 (Given - Provider: Jenny Reddy, RN) insulin [...] EVERY 6 HOURS SCHEDULED, First dose on [facility] 07/02/24 at 1200, Until Discontinued, Routine [...] 40 mEq, Oral, ONCE, 1 dose, On [place] 07/03/24 at 0730, potassium chloride ER particle/crystal [...] RN)1500 (Due - Provider: Iram De Jesus [facility]) tamsulosin (Flomax) capsule 0.8 mg 0.8 mg, [...] Routine documented in this encounter Care Teams Civil Engineering Professor Relationship Specialty Start Date End Date Deacon Watters, MACHINE STAMPER [address] [place] [address] PCP - General Family Medicine 02/17/22 documented as of this encounter
--- OUTSIDE RECORDS SUMMARY | 2024-07-20 13:34 | XMS_ITS | Encounter Summary ---
Author Organization [facility] Address [facility] [place] [address] Care Team Providers Care Records Specialist Name Role Phone Deacon Watters APRN Primary Care Provider [phone] Reason for Visit * Reason Comments Medication Refill Encounter Details Date Type Department Care Team (Late st Contact Info) Description 07/01/2024 Refill [place] [address] Dion Barlow MD [facility] [place] [address] Social History Tobacco Use Types Packs/Day Years Used Date Smoking Tobacco: Former Cigarettes 4 30 1 12/01/1961 - 10/01/1992 Smokeless Tobacco: Former Chew Comments:Denies vaping Alcohol Use Standard Drinks/Week Comments Yes 0 (1 standard drink = 0.6 oz pur e alcohol) twice a year [facility] Utilities Answer Date Recorded In the past 12 months has e [employer], gas, oil, or water [employer] threatened to shut off services in your [...] were you homeless or living in a long term (including now)? No 07/01/2024 IPV Inpatient Questions [...] 9:00 AM EDT Office [place] [address] Dion Barlow MD [facility] [address] 09/01/2024 9:40 AM EDT Office Visit Cardiology at [address] [phone] Franky Shaver MD [facility] [place] [address] 09/01/2024 11:20 AM EDT Office Visit Dermatology at [facility] [address] [place] [phone] Gómez Mercer MD [facility] DR [place] [address] 09/21/2024 2:45 PM EDT Office Visit [facility] [place] [phone] Trung Hoyos MD [facility] [place] [address] documented as of this encounter Visit Diagnoses Not on filedocumented in this encounter Care Teams Records Specialist Relationship Specialty Start Date End Date Deacon Watters, JAZMINE [address] [place] [address] PCP - General Family Medicine 02/17/22 documented as of this encounter
--- OUTSIDE RECORDS SUMMARY | 2024-07-20 13:34 | XMS_ITS | Clinical Summary ---
Author Organization [facility] Address [facility] [place] [address] Care Team Providers Care Sheriff Sergeant Name Role Phone Deacon Watters APRN Primary Care Provider [phone] Allergies Active Allergy Reactions Criticality Noted Date [...] the sigmoid nl Repeat exam 11/27/11 ([facility]): mildly active colitis [...] ascending colon. Several HPs and one TA. [place] 03/2022 - [place] 1 limited to rectosigmoid, diverticulosis. No dysplasia TREATMENT: cortenemas, Asacol, Rowasa, prednisone, and imodium Diabetes mellitus 10/01/2011 Hearing loss 10/01/2011 GERD (gastroesophageal reflux disease) 1 Hydrocele 10/01/2011 Asthma 10/01/2011 Encounters Date Type Department Care Team Description 07/05/2024 Abstract Cardiology at [address] [address] Lesa Duncan, RN 07/05/2024 Telephone Cardiology at [address] [address] Lesa Duncan, wind turbine engineer; Coronary Artery Disease 07/01/2024 2:30 PM EDT - 07/01/2024 3:30 PM EDT [place] [address] Lizzette Hayden MD CARDIAC CATHETERIZATION 07/01/2024 [place] [address] Dion Barlow MD 06/30/2024 3:44 PM EDT - 07/04/2024 3:25 PM EDT Hospital Encounter Heart and Vascular Unit Level 3 [place] [phone] Triston Godinez MD Welch, Terrence D, MD NSTEMI (non-ST elevated myocardial infarction) (Primary Dx) Discharge Disposition: Home 06/29/2024 7:25 PM EDT Ancillary Procedure [place] [phone] Deacon Watters, SWEET PICKLED FRUIT MAKER 06/29/2024 [place] [address] Ramakrishna Elliott MD 06/29/2024 External [place] [address] 06/22/2024 8:00 AM EDT Office Visit [place] [address] Trung Hoyos MD Radiculopathy of cervical region (Primary Dx) 06/22/2024 Travel 06/09/2024 [place] [address] Marcelle Weinberg, JAZMINE 06/07/2024 1:20 PM EDT Office Visit Dermatology at [address] [address] Gómez Mercer MD Tinea cruris 06/07/2024 12:55 PM EDT - 06/07/2024 11:59 PM EDT [place] [address] Left sided colitis without complications Discharge Disposition: Home 06/06/2024 12:56 PM EDT - 06/06/2024 11:59 PM EDT [place] [address] Left sided colitis without complications Discharge Disposition: Home 06/06/2024 8:00 AM EDT Office [place] [address] Marcelle Weinberg, SWEET P[employer]LED FRUIT MAKER Left sided colitis without complications 06/06/2024 [place] [address] Marcelle Weinberg, JAZMINE 06/06/2024 Travel from Last 3 Months Social History Tobacco Use Types Packs/Day Years Used Date Smoking Tobacco: Former Cigarettes 4 30 1 12/01/1961 - 10/01/1992 Smokeless Tobacco: Former Chew Comments:Denies vaping Alcohol Use Standard Drinks/Week Comments Yes 0 (1 standard drink = 0.6 oz pur e alcohol) twice a year [facility] Utilities Answer Date Recorded In the [...] in the past 12 [facility], were you homeless or living in a penitentiary (including now)? No 07/01/2024 DH IPV Inpatient [...] EDT Office [place] [phone] Dion Barlow MD [facility] [place] [address] 09/01/2024 9:40 AM EDT Office Visit Cardiology at [address] [address] Franky Shaver MD [facility] [place] [address] 09/01/2024 11:20 AM EDT Office Visit Dermatology at [facility] [address] [place] [address] Gómez Mercer MD [facility] DR [place] [address] 09/21/2024 2:45 PM EDT Office Visit [place] [phone] rTung Hoyos MD [facility] [address] Health Maintenance Due Date Last Done Comments [...] PM EDT URINALYSIS BEAKER MICROSCPIC REFLEX EXAM ([facility]) Routine 07/03/2024 3:02 PM EDT URINALYSIS MICROSCOPIC [...] resultswithin the time period is included. Pathologist [facility] Glucometer, POC 274(H) 65 - 199 mg/dL 07/04/2024 2:12 PM EDT [facility] Comment:Supplemental ranges: <140 mg/dL before meals <180 mg/dL all other times of the day. Blood CAPILLARY BLOOD / Unknown 07/04/2024 1:49 PM EDT 07/04/2024 2:12 PM EDT Armond Denny MD POINT OF CARE TEST O RDERABLES [facility] [place] [address] * Scan Doc: Telemetry Strips (07/04/2024 7:32 AM EDT) Only the most recent of18 resultswithin the time period is included. Narrative 07/04/2024 7:32 AM EDT Ordered by an unspecified provider. Scanning Provider MEDIA MGR SCAN EXT O RDR/RSLT * (ABNORMAL) CBC (with Diff) (07/04/2024 1:43 AM EDT) Only the most recent of5 resultswithin the time period is included. [facility] White Blood Cell 5.05 4.00 - 9.50 [...] 27.5 - 32.1 pg 07/04/2024 2:00 AM [facility] Mean Cell Hemoglobin Concentration 33.3 32.0 - 35.7 g/dL 07/04/2024 2:00 AM [facility] Platelet 145 145 - 357 x10(3)/mc L 07/04/2024 2:00 AM [facility] Mean Platelet Volume 11.5 7.6 - 12.9 fL 07/04/2024 2:00 AM [facility] RDW Standard Deviation 48.2(H) 36.0 - 45.0 fL 07/04/2024 2:00 AM [facility] RDW coefficient of variation 13.1 11.4 - 13.8 % 07/04/2024 2:00 AM [facility] NRBC% auto 0.0 % 07/04/2024 2:00 AM [facility] NRBC Absolute 0.00 0.00 - 0.00 x10(3)/mc L 07/04/2024 2:00 AM [facility] Neutrophil % 65.9 % 07/04/2024 2:00 AM [facility] Neutrophil Absolute 3.33 1.70 - 6.10 x10(3)/mc L 07/04/2024 2:00 AM [facility] Lymph % 20.8 % 07/04/2024 2:00 AM [facility] Lymph Absolute 1.05 0.90 - 3.20 x10(3)/mc L 07/04/2024 2:00 AM [facility] Monocyte % 9.3 % 07/04/2024 2:00 AM [facility] Monocyte Absolute 0.47 0.30 - 0.90 x10(3)/mc L 07/04/2024 2:00 AM [facility] Eos % 3.0 % 07/04/2024 2:00 AM [facility] Eos Absolute 0.15 0.00 - 0.40 x10(3)/mc L 07/04/2024 2:00 AM EDT [facility] Basophil % 0.6 % 07/04/2024 2:00 AM EDT [facility] Baso Absolute 0.03 0.00 - 0.10 x10(3)/mc L 07/04/2024 2:00 AM EDT [facility] Immature Gran % 0.4 % 2:00 AM EDT [facility] Immature Gran Absolute 0.02 0.00 - 0.04 x10(3)/mc L 07/04/2024 2:00 AM EDT [facility] Blood VENOUS BLOOD SPECIMEN / Unknown IP Care Team Draw / Unknown 07/04/2024 1:43 AM EDT 07/04/2024 1:52 AM EDT Triston Godinez MD HEMATOLOGY ORDERABLE S [facility] [place] [address] * Magnesium (07/04/2024 1:43 AM EDT) Only the most recent of4 resultswithin the time period is included. Magnesium 0.80 0.69 - 1.07 mMol/L 07/04/2024 2:23 AM EDT [facility] Blood VENOUS BLOOD SPECIMEN / Unknown IP Care Team Draw / Unknown 07/04/2024 1:43 AM EDT 07/04/2024 1:52 AM EDT Triston Godinez MD CHEMISTRY ORDERABLES Performing Organization Address City/[facility]/ZIP Co de Phone Number [facility] [place] [address] * (ABNORMAL) Basic Metabolic Panel (07/04/2024 1:43 AM EDT) Only the most recent of5 resultswithin the time period is included. Glucose 156 65 - 199 mg/dL 07/04/2024 2:23 AM [facility] Comment:Glucose Concentratio n >=200 mg/dL plus symptoms is consistent with Diabetes Mellitus. Blood Urea Nitrogen 12 10 - 20 mg/dL 07/04/2024 2:23 AM [facility] Creatinine 1.27 0.80 - 1.50 mg/dL 07/04/2024 2:23 AM [facility] Sodium 141 135 - 145 mMol/L 07/04/2024 2:23 AM [facility] Potassium 3.9 3.5 - 5.0 mMol/L 07/04/2024 2:23 AM [facility] Chloride 108(H) 98 - 107 mMol/L 07/04/2024 2:23 AM [facility] Carbon Dioxide 22 22 - 31 mMol/L 07/04/2024 2:23 AM [facility] Anion Gap 11 5 - 15 mMol/L 07/04/2024 2:23 AM [facility] Calcium 9.4 8.5 - 10.5 mg/dL 07/04/2024 2:23 AM [facility] Est Glomerular Filtration Rate - Male 59 mL/min/1. 73 m?? 07/04/2024 2:23 AM [facility] Comment: This patient's estimated GFR was [...] Godinez MD CHEMISTRY ORDERABLES Performing Organization Address [facility] Co de Phone Number [facility] [place] [address] * (ABNORMAL) Urinalysis Microscopic Reflex to Culture [...] Denny MD URINE ORDERABLES Performing Organization Address [facility] Co de Phone Number [facility] [place] [address] * Urinalysis Microscopic with Reflex to Culture (07/03/2024 3:02 PM EDT) Urine URINE SPECIMEN OBTAINED BY CLEAN CATCH PROCEDURE / Unknown Non Blood Collection / Unknown 07/03/2024 3:02 PM EDT 07/03/2024 3:13 PM EDT Armond Denny MD URINE ORDERABLES [facility] [place] [address] * (ABNORMAL) Urinalysis with reflex Culture (07/03/2024 [...] PM EDT [facility] Specific Apex Urine Automated 1.024 1.005 - 1.030 07/03/2024 [...] MD URINE ORDERABLES [facility] [place] [address] * (ABNORMAL) Urine culture (07/03/2024 3:02 PM [...] Denny MD MICROBIOLOGY - GENER AL ORDERABLES [facility] [place] [address] * CT Abdomen & Pelvis w Contrast (07/02/2024 3:13 AM EDT) WORKSTATION ID [id number] RAD Anatomical Region Laterality Modality Abdomen, Pelvis [...] have questions please contact the health healthcare management consultant that requested your imaging first. ? [...] who have questions please contactthe health healthcare management consultant that requested your imaging first. Electronically signed by: Gutierrez Hamilton MD, [facility]([phone]), at 07/02/2024 9:20 AM Triston Godinez MD [...] (Bezet) 473 ms MUSE SYSTEM Calculated P [place] 63 degrees MUSE SYSTEM Calculated R [place] 87 degrees MUSE SYSTEM Calculated T [place] 8 degrees MUSE SYSTEM INTERPRETATION Normal sinus [...] Modality Other Narrative 07/01/2024 7:47 PM EDT ?[facility] ? Cardiac Catheterization/Intervention Report ? Patient Name: Naya Rodriguez. ? Procedure Date: 07/01/2024 ? A #: [id number] ? Primary Physician: Mogadam, Emad ? Case #: [id number] ? File Name: [id number] ? Catheterization Order Number: [id number] ? [facility] ? Final Report [place], [place] ? Patient Name: ? Naya M. Rodriguez ?ID#: ?[id number] ? : ?1950 ? Procedure Date: ? [...] procedure was Urgent. The indication for ?the bundle tier and labeler visit is ACS less than or equal [...] ? A premounted 2.75 x 22 mm Cal [place] Ari Scioto (EILEEN) was deployed ? with a maximum [...] dose administered prior to arrival in the bundle tier and labeler. ?Recommended anti-platelet/anti-thrombotic regimen: ?Continue aspirin 81 mg daily. ?Continue clopidogrel 75 mg daily. ?These recommendations are made at the time of the intervention. Patient ?and provider preferences or a changing clinical situation may require ?modification of this regimen. Consult [facility] Interventional Cardiology for [...] against any medical treatment. Consult ?http://tools.acc.org/DAPTriskapp/#!/content/calculator/ or [facility] ?Interventional Cardiology for [...] Ammended: 07/14/2024 ??18:32 ? Procedure Note Lizzette aHyden MD - 07/14/2024 [facility] Cardiac Catheterization/Intervention Report Patient Name: Naya Rodriguez Procedure Date: 07/01/2024 A #: [id number] Primary Physician: Lizzette Hayden Case #: [id number] File Name: [id number] Catheterization Order Number: [id number] [facility] FinalReport [place], [place] Patient Name: Naya Rodriguez ID#:[id number] :1950 Procedure Date: July 01, 2024 Case [...] patient was designated as ASA Class III. [facility] clinical frailty scale is 4: Vulnerable. Diagnostic Tests: Medications Prior to Procedure: Aspirin, Angiotensin II Receptor Marci and Statin. Indications for Diagnostic Cath: The priority of the diagnostic procedure was Urgent. The indicationfor the bundle tier and labeler visit is ACS less than or equal [...] time was 37.0 minutes, dose area product yks458.00 Gy/cm2 and air kerma was 1,874 mGY. [...] The lesion was predilated with a 2.50mm [id number] MM balloon with a maximum inflation pressure of 14atmospheres. A premounted 2.75 x 22 mm Cal [place] Ari Scioto (EILEEN) wasdeployed with a maximum inflation pressure [...] dose administered prior to arrival in the bundle tier and labeler. Recommended anti-platelet/anti-thrombotic regimen: Continue aspirin 81 mg daily. Continue clopidogrel 75 mg daily. These recommendations are made at the time of the intervention.Patient and provider preferences or a changing clinical situation mayrequire modification of this regimen. Consult [facility] Interventional Cardiologyfor questions. [...] or against any medical treatment.Consult http://tools.acc.org/DAPTriskapp/#!/content/calculator/ or [facility] Interventional Cardiology for [...] Heparin 0.31 IU/mL 07/01/2024 11:25 AM EDT [facility] Comment: [...] HEMATOLOGY ORDERABLE S [facility] [place] [address] * (ABNORMAL) Hemogram (07/01/2024 10:32 AM EDT) Only the most recent of2 resultswithin the time period is included. White Blood Cell 7.02 4.00 - 9.50 x10(3)/mc L 07/01/2024 11:20 AM [facility] Red Blood Cell 3.68(L) 4.58 - 5.54 x10(6)/mc L 07/01/2024 11:20 AM [facility] Hemoglobin 12.2(L) 13.7 - 16.5 g/dL 07/01/2024 11:20 AM [facility] Hematocrit 36.5(L) 40.5 - 48.5 % 07/01/2024 11:20 AM [facility] Mean Cell Volume 99.2(H) 82.9 - 93.1 fL 07/01/2024 11:20 AM [facility] Mean Cell Hemoglobin 33.2(H) 27.5 - 32.1 pg 07/01/2024 11:20 AM [facility] Mean Cell Hemoglobin Concentration 33.4 32.0 - 35.7 g/dL 07/01/2024 11:20 AM [facility] Platelet 167 145 - 357 x10(3)/mc L 07/01/2024 11:20 AM EDT [facility] Mean Platelet Volume 11.4 7.6 - 12.9 fL 07/01/2024 11:20 AM EDT [facility] RDW Standard Deviation 46.5(H) 36.0 - 45.0 fL 07/01/2024 11:20 AM EDT [facility] RDW coefficient of variation 12.9 11.4 - 13.8 % 07/01/2024 11:20 AM EDT [facility] NRBC% auto 0.0 % 07/01/2024 11:20 AM [facility] NRBC Absolute 0.00 0.00 - 0.00 x10(3)/mc L 07/01/2024 11:20 AM EDT [facility] Blood VENOUS BLOOD SPECIMEN / Unknown IP Care Team Draw / Unknown 07/01/2024 10:32 AM EDT 07/01/2024 10:54 AM EDT Armond Denny MD HEMATOLOGY ORDERABLE S [facility] [place] [address] * (ABNORMAL) Troponin-T, Yuriy Sensitivity 3 Hour [...] troponin value can be found in the [facility] Laboratory Test Catalog Troponin - https://one-.testcatalog.org/catalogs/565/files/43256 Reference: Fourth [place] Definition of Myocardial Infarction. Journal of the [place] College of Cardiology 2018;72:3790-0492 Troponin-T, HS 3 hr delta 65 ng/L [...] MD CHEMISTRY ORDERABLES [facility] [place] [address] * (ABNORMAL) Troponin-T, High Sensitivity 1 Hour (06/30/2024 8:22 PM EDT) Pathologist [facility] Troponin-T, High Sensitivity 1,234(H) <=22 ng/L 06/30/2024 [...] troponin value can be found in the [facility] Laboratory Test Catalog Troponin - https://[facility].testcatalog.org/catalogs/565/files/52486 Reference: Fourth [place] Definition of Myocardial Infarction. Journal of the [place] College of Cardiology 2018;72:8074-9775 Troponin-T, HS 1 hr delta 06/30/2024 9:22 PM EDT [facility] Comment:Delta troponin value not calculated, sample collected outside of delta calculation time limit. Blood VENOUS BLOOD SPECIMEN / Unknown Venipuncture / Unknown 06/30/2024 8:22 PM EDT 06/30/2024 8:40 PM EDT Triston Godinez MD CHEMISTRY ORDERABLES [facility] [place] [address] * XR Abdomen Flat & Upright (06/30/2024 6:56 PM EDT) Mesh[employer] Signature WORKSTATION ID [id number] RAD Anatomical Region Laterality Modality Abdomen N/A Digital Radiogra phy Impressions 06/30/2024 9:12 PM EDT No obstruction or perforation. Thank you for letting us participate in the care of this patient. ??If you are a health care provider and have any questions regarding this report, please contact the number below. ??For patients who have questions please contact the health healthcare management consultant that requested your imaging first. ? Electronically signed by: Shireen Hurtado MD, [facility] ([phone]), at 06/30/2024 9:12 PM Narrative 06/30/2024 9:12 [...] who have questions please contactthe health healthcare management consultant that requested your imaging first. Electronically signed by: Shireen Hurtado MD, [facility]([phone]), at 06/30/2024 9:12 PM Triston Godinez MD IMG DX ORDERABLES * (ABNORMAL) Troponin-T, High Sensitivity (06/30/2024 6:09 PM EDT) [facility] Troponin-T, High Sensitivity Initial 1,209([facility] ) <=22 ng/L 06/30/2024 7:23 [...] troponin value can be found in the [facility] Laboratory Test Catalog Troponin - https://[facility].testcatalog.org/catalogs/565/files/74353 Reference: Fourth [place] Definition of Myocardial Infarction. Journal of the [place] College of Cardiology 2018;72:9175-8009 Blood VENOUS BLOOD SPECIMEN / Unknown Venipuncture / Unknown 06/30/2024 6:09 PM EDT 06/30/2024 6:18 PM EDT Triston Godinez MD CHEMISTRY ORDERABLES Performing Organization Address City/[facility]/ZIP Co de Phone Number [facility] [place] [address] * TSH (06/30/2024 6:09 PM EDT) Thyroid Stimulating Hormone 2.80 0.27 - 4.20 mcIU/mL 06/30/2024 6:51 PM EDT [facility] Blood VENOUS BLOOD SPECIMEN / Unknown Venipuncture / Unknown 06/30/2024 6:09 PM EDT 06/30/2024 6:18 PM EDT Triston Godinez MD CHEMISTRY ORDERABLES [facility] [place] [address] * (ABNORMAL) pro-Brain Natriuretic Peptide (06/30/2024 6:09 PM EDT) NT-proBNP 2,259(H) <=449 pg/mL 06/30/2024 6:51 PM EDT [facility] Blood VENOUS BLOOD SPECIMEN / Unknown Venipuncture / Unknown 06/30/2024 6:09 PM EDT 06/30/2024 6:18 PM EDT Triston Godinez MD CHEMISTRY ORDERABLES [facility] [place] [address] * Lipid Panel (Reflex Direct LDL) (06/30/2024 [...] 6:09 PM EDT 06/30/2024 6:18 PM EDT [facility] - 06/30/2024 6:51 PM EDT It [...] MD CHEMISTRY ORDERABLES [facility] [place] [address] * (ABNORMAL) Hemoglobin A1c (06/30/2024 6:08 PM EDT) [facility] Hemoglobin A1c 7.3(H) 4.3 - 5.6 % [...] red blood cell turnover may not be access services representative of glycemic control. Reference Interval: 4.3 [...] into estimated average glucose values. ??Diabetes Care 2008:31(8):0818-6652. Additional resources are available on the ADA website (diabetes.org). Triston Godinez MD CHEMISTRY ORDERABLES Performing Organization Address [facility]/State/ZIP Co de Phone Number [facility] [place] [address] * ECHO COMPLETE W CONTRAST (06/30/2024 5:22 [...] NSTEMI (non-ST elevation myocardial infarction) Exam Location: [facility]. ? Conclusions -Left ventricular systolic function is moderately reduced. The left ventricular ejection fraction is 36% by Dowd's biplane. The anterolateral and inferolateral barahona are akinetic. The anterior wall is hypokinetic. -Right ventricle is mildly dilated. Systolic function is normal. -No significant valve disease. -See report for additional findings. No prior study is available. Procedure Complete-[id number]. Image enhancement Optison was used for left [...] NSTEMI (non-ST elevation myocardial infarction) Exam Location: [facility]. Conclusions -Left ventricular systolic function is moderately reduced. The leftventricular ejection fraction is 36% by Dowd's biplane. The anterolateral andinferolateral barahona are akinetic. The anterior wall is hypokinetic. -Right ventricle is mildly dilated. Systolic function is normal. -No significant valve disease. -See report for additional findings. No prior study is available. Procedure Complete-[id number]. Image enhancement Optison was used for left [...] purpose is for storage only. Deacon Watters SWEET PICKLED FRUIT MAKER IMG FILM LIBRARY O RDERABLES [place], [place] * External Cardiology Result (06/29/2024 4:33 PM EDT) Anatomical Region Laterality Modality Other Historical Provider EXTERNAL CARDIOLO GY RESULT * Campylobacter Antigen (06/07/2024 9:00 AM EDT) Campylobacter Ag Immunoassay Negative for Campylobacter Antigen [facility] Stool 06/07/2024 9:00 AM EDT 06/07/2024 1:32 PM EDT Narrative Resulting Agency Comment Spec In Lab Marcelle Weinberg SWEET P[employer]LED [employer] MAKER MICROBIOLOGY - GE NERAL ORDERABLES Performing Organization Address [facility] Co de Phone Number [facility] [place] [address] * Shiga Toxin Detection (06/07/2024 9:00 AM EDT) Shiga Toxin Assay EIA Negative for Shiga Toxin 1 EIA Negative for Shiga Toxin 2 [facility] Stool 06/07/2024 9:00 AM EDT 06/07/2024 1:32 PM EDT Narrative Resulting Agency Comment Spec In Lab Marcelle Weinberg SWE[employer]KER MICROBIOLOGY - GE NERAL ORDERABLES Performing Organization Address City/[facility]/ZIP Co de Phone Number [facility] [place] [address] * Stool culture (06/07/2024 9:00 AM EDT) Stool Culture No enteric pathogens isolated [facility] Stool 06/07/2024 9:00 AM EDT 06/07/2024 1:32 PM EDT Narrative Resulting Agency Comment Spec In Lab Marcelle Weinberg SWE[employer] P[employer]LED [employer] MAKER MICROBIOLOGY - GE NERAL ORDERABLES Performing Organization Address City/[facility]/ZIP Co de Phone Number [facility] [place] [address] * C. Difficile Screen (06/06/2024 5:30 PM [...] Agency Comment Spec In Lab Marcelle Weinberg SWE[employer] P[employer]LED [employer] MAKER MICROBIOLOGY - GE NERAL ORDERABLES Performing Organization Address [facility] Co de Phone Number [facility] [place] [address] * (ABNORMAL) Calprotectin, Stool (06/06/2024 5:30 PM EDT) Calprotectin, Stool 112(H) <=79 mcg/g [facility] Comment: Calprotectin Concentration ? Interpretation ? < 80 mcg/g ?Normal ? 80 ? 160 mcg/g ?Borderline ? >160 mcg/g ?Elevated Stool 06/06/2024 5:30 PM EDT 06/07/2024 1:07 PM EDT Narrative Resulting Agency Comment Spec In Lab Marcelle Weinberg SWEET PICKLED FRUIT MAKER BODY FLUIDS AND S TOOLS ORDERABLES Performing Organization Address [facility] de Phone Number [facility] [place] [address] * (ABNORMAL) CRP, acute inflammation (06/06/2024 9:04 AM EDT) C-Reactive Protein 6.4(H) <=4.9 mg/L [facility] Blood 06/06/2024 9:04 AM EDT 06/06/2024 9:12 AM EDT Narrative Resulting Agency Comment Spec In Lab Marcelle Weinberg SWEET PICKLED FRUIT MAKER CHEMISTRY ORDERAB LES [facility] [place] [address] * Differential, Automated (06/06/2024 9:04 AM EDT) Neutrophil % 70.3 % [facility] Neutrophil Absolute 4.36 1.70 - 6.10 x10(3)/[facility] Lymph % 19.7 % [facility] Lymphocytes Abs 1.2 0.9 - 3.2 x10(3)/[facility] Monocyte % 7.7 % [facility] Monocyte Abs 0.5 0.3 - 0.9 x10(3)/[facility] Eos % 1.3 % [facility] Eosinophils Abs 0.1 0.0 - 0.4 x10(3)/[facility] Basophil % 0.5 % [facility] Baso Absolute 0.0 0.0 - 0.1 x10(3)/[facility] Immature Gran % 0.50 % [facility] Comment: Immature granulocytes(IG's)percentage and absolute count will include metamyelocytes, myelocytes, and promyelocytes. Blood smears from CBCs yielding IG's will be scanned manually for concordance. If this scan disagrees with the automated IG or if promyelocytes are noted, a manual differential will be performed. Immature Gran Absolute 0.03 0.00 - 0.04 x10(3)/[facility] Blood 06/06/2024 9:04 AM EDT 06/06/2024 9:12 AM EDT Narrative Resulting Agency Comment Spec In Lab Marcelle Weinberg SWEET PICKLED FRUIT MAKER HEMATOLOGY ORDERA BLES Performing Organization Address City/[facility]/ZIP Co de Phone Number [facility] [place] [address] * Sedimentation rate (06/06/2024 9:04 AM EDT) Sedimentation Rate Automated 38 3 - 46 mm/hr [facility] Comment: Effective November 02, 2019 new capillary photometric technology has resulted in a change in reference ranges. It is recommended that each ESR result be reviewed with its own age appropriate reference range. Blood 06/06/2024 9:04 AM EDT 06/06/2024 9:12 AM EDT Narrative Resulting Agency Comment Spec In Lab Marcelle Weinberg APRN HEMATOLOGY ORDERA BLES Performing Organization Address [facility] Co de Phone Number [facility] [place] [address] * Comprehensive metabolic panel (non-fasting) (06/06/2024 9:04 AM EDT) Glucose 136 65 - 199 mg/dL [facility] Comment:Diabetes: >=200 mg/d L plus symptoms Blood Urea Nitrogen 16 10 - 20 mg/dL [facility] Creatinine 1.05 0.80 - 1.50 mg/dL [facility] Sodium 144 135 - 145 mmol/L [facility] Potassium 4.2 3.5 - 5.0 mmol/L [facility] Comment: Please note: ??Patients with WBC >100,000 may have falsely elevated Potassium levels. ??For accurate Potassium quantification in these patients send serum separator tube (gold top) for subsequent determinations. ??Contact the Clinical Chemistry Laboratory if there are any questions. Chloride 107 98 - 107 mmol/L [facility] Carbon Dioxide 26 22 - 31 mmol/L [facility] Anion Gap 11 5 - 15 mmol/L [facility] Calcium 9.8 8.5 - 10.5 mg/dL [facility] Protein, Total 7.6 6.1 - 8.0 g/dL [facility] Albumin 4.1 3.2 - 5.2 g/dL [facility] Aspartate Aminotransferase 16 0 - 39 unit/L [facility] Alanine Aminotransferase 18 0 - 55 unit/L [facility] Alkaline Phosphatase 71 40 - 130 unit/L [facility] Bilirubin, Total 0.5 0.2 - 1.3 mg/dL [facility] Est Glomerular Filtration Rate 74 >=60 mL/min/1. 73 m?? [facility] Comment: This patient's [...] Agency Comment Spec In Lab Marcelle Weinberg SWEET PICKLED FRUIT MAKER CHEMISTRY ORDERAB LES Performing Organization Address City/State/[facility] Co de Phone Number [facility] [place] [address] * COLONOSCOPY (01/20/2024 10:01 AM EST) COLONOSCOPY [facility] End[facility] Procedure Date: 01/20/2024 10:01 AM ? Patient Name: Naya Rodriguez ? Date of : 1950 ? Age: 73 ? Order #: [id number] ? Instrument Name: [id number] ? Procedure: ? Colonoscopy Indications: ? Follow-up [...] ? physician, the nurse and the ? endoscopy specialty technician in the pre-procedure ? area in [...] SIGMOIDOSCOPY (03/16/2012 1:15 PM EDT) FLEXIBLE SIGMOIDOSCOPY [facility] Endoscopy Patient Name: Naya Rodriguez ? Procedure Date: 03/16/2012 1:15 PM ? N: [id number] ? Date of : 1950 ? Age: 61 ? Order #: [id number] ? Procedure: ? Flexible Sigmoidoscopy Indications: ? pt with active UC, assess severity ? prior to entry in MTX study Providers: ? Enrico Tellez MD, April Augustine ? RONY Archibald, Kingsley Oneal, ? Laboratory Technician Referring MD: ?Maximilian Fall MD Requesting [...] Documents on File Type Date Recorded Patient Advertising Account Manager Expl anation Advance Directives and Livin g [...] capacity to make decision: Yes Care Teams Sheriff Sergeant Relationship Specialty Start Date End Date Deacon Watters, SWEET PICKLED FRUIT MAKER [address] [place] [address] PCP - General Family Medicine 02/17/22
--- OUTSIDE RECORDS SUMMARY | 2024-07-20 13:35 | XMS_ITS | Encounter Summary ---
Author Organization [facility] Address [facility] [place] [address] Care Team Providers Care Director Writing Name Role Phone Deacon Watters APRN Primary Care Provider +1- [phone] Reason for Visit * Consultation (Routine) - Closed Specialty Diagnoses / Procedures Referred By Perri t Referred To Contact Dermatology Diagnoses Basal cell carcinoma (BCC), unspecified site Becca Villegas APRN [address] [place] [address] [place] [address] Kingsley Finn MD [facility] DR EDDIE [place] [address] Referral ID Status Reason Start Date Expiration Date V isits Requested Visits Authorized [id number] Closed Consult, Test & Treat PCP Updated and/or Approved 01/04/2024 01/03/2025 1 1 Encounter Details Date Type Department Care Team (Late st Contact Info) Description 01/28/2024 2:00 PM EST Office Visit Dermatology at [facility] [address] [place] [address] Kingsley Finn MD [facility] DR EDDIE [place] [address] Basal cell carcinoma of right [...] and follow up with his or her crt or other skin provider. 5. Discussed avoiding [...] signed by: Kingsley Finn Dermatology [facility] documented in this encounter Plan of Treatment Upcoming Encounters Date Type Department Care Team (Late st Contact Info) Description 08/15/2024 9:00 AM EDT Office [place] [address] Dion Barlow MD [facility] [place] [address] 09/01/2024 9:40 AM EDT Office Visit Cardiology at [address] [phone] Franky Shaver MD [facility] [place] [address] 09/01/2024 11:20 AM EDT Office Visit Dermatology at [facility] [address] [place] [address] Gómez Mercer MD [facility] DR EDDIE [place] [address] 09/21/2024 2:45 PM EDT Office Visit [place] [address] Trung Hoyos MD [facility] [place] [address] Scheduled Referrals Name Type Priority Associated Diagnoses Orde r Schedule Referral to Dermatology Outpatient Referral Routine Basal cell carcinoma (BCC), unspecified site Ordered: 01/04/2024 documented as of this encounter Visit Diagnoses Diagnosis Basal cell carcinoma of right side of nose Basal cell carcinoma of skin of other and unspecified parts of face documented in this encounter Care Teams Director Writing Relationship Specialty Start Date End Date Deacon Watters, WHITE MIXING OPERATOR [address] [place] [address] PCP - General Family Medicine 02/17/22 documented as of this encounter
--- OUTSIDE RECORDS SUMMARY | 2024-07-20 13:35 | XMS_ITS | Encounter Summary ---
Author Organization [facility] [place] [address] Care Team Providers Care Driver Recruiter Name Role Phone Deacon Watters APRN Primary Care Provider +1- [phone] Encounter Details Date Type Department Care Team (Late st Contact Info) Description 06/06/2024 [place]phone [place] [phone] Marcelle Weinberg MILK SAMPLER [facility] [place] [address] Social History Tobacco Use Types Packs/Day Years [...] 9:00 AM EDT Office [place] [phone] Dion Barlow MD [facility] [place] [address] 09/01/2024 9:40 AM EDT Office Visit Cardiology at [address] [address] Franky Shaver MD [facility] [address] 09/01/2024 11:20 AM EDT Office Visit Dermatology at [address] [address] Gómez Mercer MD [facility]1]-[place] [address] 09/21/2024 2:45 PM EDT Office Visit [place] [phone] Trung Hoyos MD [facility] [place] [address] documented as of this encounter Visit Diagnoses Not on filedocumented in this encounter Care Teams Driver Recruiter Relationship Specialty Start Date End Date Deacon Watters APRN [address] [place] [address] [address] [facility] 1 [place] [address] PCP - General Family Medicine 02/17/22 documented as of this encounter
--- OUTSIDE RECORDS SUMMARY | 2024-07-20 13:35 | XMS_ITS | Encounter Summary ---
Author Organization [facility] Address [facility] [place] [address] Care Team Providers Care Restaurant Kitchen Manager Name Role Phone Duong Deacon Wells APRN Primary Care Provider +1- [phone] Encounter Details Date Type Department Care Team (Latest Contact Info) Description 01/20/2024 9:28 AM EST - 01/20/2024 11:41 AM EST Hospital Encounter [place] [address] Anthony Hamlin MD [facility] [place] [address] Discharge Disposition: Home Social History Tobacco Use [...] occurs, please contact your Doctor. Please call [phone] before 8pm Mon-Fri with problems, questions or concerns. If you call after 8pm or on weekends, call the Hospital at [phone] and ask to speak to the Window Decorator second helper and the automatic spinning lathe operator will contact that person for you. When should you call for help? Call 329 anytime you think you may need emergency [...] any problems. Where can you learn more? [facility] View your After Visit Summary and more online at [email or web address] If you would like to [...] cost to you. Content Version: 12.2 ?? 4023-2974 [employer]. Care instructions adapted under license by [facility]. If you have questions about a medical condition or this instruction, always ask your healthcare professional. [employer] disclaims any warranty or liability for your [...] 9:00 AM EDT Office [place] [address] Dion Barlow MD [facility] [place] [address] 09/01/2024 9:40 AM EDT Office Visit Cardiology at [address] [phone] Franky Shaver MD [facility] [place] [address] 09/01/2024 11:20 AM EDT Office Visit Dermatology at [address] [phone] Gómez Mercer MD [facility] [place] [address] 09/21/2024 2:45 PM EDT Office Visit [place] [address] Trung Hoyos MD [facility] [place] [address] documented as of this encounter Procedures Procedure [...] Routine 01/20/2024 10:24 AM EST Colonoscopy, Biopsy (68046) 01/20/2024 10:09 AM EST Left sided colitis without complications POCT GLUCOSE Routine 01/20/2024 10:05 AM EST POCT FINGERSTICK GLUCOSE Routine 01/20/2024 10:05 AM EST COLONOSCOPY Routine 01/20/2024 10:01 AM EST documented in this encounter Results * Specimen to Pathology (01/20/2024 10:48 AM EST) AP Specimen 01/20/2024 10:4 8 AM EST 01/20/2024 10:48 AM EST Narrative [facility] - 01/20/2024 10:48 AM EST Specimen requisition ordered. ??Separate Pathology report to follow Anthony Hamlin MD PATHOLOGY/CYTOLOGY O CEE Performing Organization Address [facility] Co de Phone Number [facility] [place] [address] * Specimen to Pathology (01/20/2024 10:48 AM EST) AP Specimen 01/20/2024 10:4 8 AM EST 01/20/2024 10:48 AM EST Narrative [facility] - 01/20/2024 10:48 AM EST Specimen requisition ordered. ??Separate Pathology report to follow Anthony Hamlin MD PATHOLOGY/CYTOLOGY O CEE Performing Organization Address City/[facility]/ZIP Co de Phone Number [facility] [place] [address] * Specimen to Pathology (01/20/2024 10:48 AM EST) AP Specimen 01/20/2024 10:4 8 AM EST 01/20/2024 10:[address] [facility] - 01/20/2024 10:48 AM EST Specimen requisition ordered. ??Separate Pathology report to follow Anthony Hamlin MD PATHOLOGY/CYTOLOGY O RDMELISSA Performing Organization Address City/[facility] [place] [place] [address] * Specimen to Pathology (01/20/2024 10:48 AM EST) AP Specimen 01/20/2024 10:4 8 AM EST 01/20/2024 10:48 AM EST Narrative [facility] - 01/20/2024 10:48 AM EST Specimen requisition ordered. ??Separate Pathology report to follow Anthony Hamlin MD PATHOLOGY/CYTOLOGY O RDMELISSA Performing Organization Address [facility] Co de Phone Number [facility] [place] [address] * Specimen to Pathology (01/20/2024 10:48 AM EST) AP Specimen 01/20/2024 10:4 8 AM EST 01/20/2024 10:48 AM EST Narrative [facility] - 01/20/2024 10:48 AM EST Specimen requisition ordered. ??Separate Pathology report to follow Anthony Hamlin MD PATHOLOGY/CYTOLOGY O CEE Performing Organization Address [facility] Co de Phone Number [facility] [place] [address] * Specimen to Pathology (01/20/2024 10:48 AM EST) AP Specimen 01/20/2024 10:4 8 AM EST 01/20/2024 10:48 AM EST Narrative [facility] - 01/20/2024 10:48 AM EST Specimen requisition ordered. ??Separate Pathology report to follow Anthony Hamlin MD PATHOLOGY/CYTOLOGY O RDMELISSA Performing Organization Address City/[facility] Co de Phone Number [facility] [place] [address] * Surgical Pathology Report (01/20/2024 10:24 AM EST) Final Diagnosis [id number] ? Location: 4T; EA12; A The signing [...] Dilip Verified: ??01/29/2024 12:04 ??Pathologist Performed at: ??-[facility] Dept. of Pathology, [place] [address] Well Service Floor Worker: Joana Soler MD, FCAP, ??CLIA Certificate: [id number] SPECIMEN(S) SUBMITTED A - right colon, biopsy [...] EST Anthony Hamlin MD PATHOLOGY/CYTOLOGY O RDERABLES [facility] [place] [address] [facility] [place] [address] * POCT Glucose (01/20/2024 10:05 AM EST) Glucose, POC 114 65 - 199 mg/dL [facility] Comment: Supplemental ranges: <140 mg/dL before meals <180 mg/dL all other times of the day Blood 01/20/2024 10:0 5 AM EST 01/20/2024 10:05 AM EST Anthony Hamlin MD POINT OF CARE TEST O RDERABLES [facility] [address] * POCT Fingerstick Glucose (01/20/2024 10:05 AM EST) Glucose, POC 114 60 - 199 mg/dl 01/20/2024 10:0 5 AM EST Anthony Hamlin MD POINT OF CARE TEST O RDERABLES * COLONOSCOPY (01/20/2024 10:01 AM EST) COLONOSCOPY [facility] Endoscopy Procedure Date: 01/20/2024 10:01 AM ? Patient Name: Brian Rodriguez ? Date of : 1950 ? Age: 73 ? Order #: [id number] ? Instrument Name: [id number]- [id number] ? Procedure: ? Colonoscopy Indications: ? Follow-up [...] ? physician, the nurse and the ? line technician in the pre-procedure ? area in [...] 01/20/2024 10:0 1 AM EST Deacon Watters PLATE AND FRAME FILTER OPERATOR GENERAL SURGICAL O RDERABLES [employer]OVATION documented [...] RN) documented in this encounter Care Teams Restaurant Kitchen Manager Relationship Specialty Start Date End Date Deacon Watters, JAZMINE [address] [place] [address] [address] [place] [address] PCP - General Family Medicine 02/17/22 documented as of this encounter
--- OUTSIDE RECORDS SUMMARY | 2024-07-20 13:35 | XMS_ITS | Encounter Summary ---
Author Organization [facility] [place] [address] Care Team Providers Care Director Of Religious Activities Name Role Phone Deacon Watters APRN Primary Care Provider [phone] Reason for Visit * Auth/Cert (Routine) Specialty Diagnoses / Procedures Referred By Contac t Referred To Contact Diagnoses NSTEMI (non-ST elevated myocardial infarction) NSTEMI Triston Godinez MD [facility] [place] [address] [facility] Referral ID Status Reason Start Date Expiration Date Visits Re quested Visits Authorized [id number] 1 1 Encounter Details Date Type Department Care Team (Late st Contact Info) Description 07/01/2024 2:30 PM EDT - 07/01/2024 3:30 PM EDT Surgery [place] [address] Lizzette Hayden MD [facility] [place] [address] CARDIAC CATHETERIZATION Social History Tobacco Use Types Packs/Day Years Used Date Smoking Tobacco: Former Cigarettes 4 30 1 12/01/1961 - 10/01/1992 Smokeless Tobacco: Former Chew Comments:Denies vaping Alcohol Use Standard Drinks/Week Comments Yes 0 (1 standard drink = 0.6 oz pur e alcohol) twice a year [facility] Utilities Answer Date Recorded In the past 12 months has th e electric, gas, oil, or water [employer] threatened to shut off services in your [...] any time in the past 12 m [facility], were you homeless or living in a fpc (including now)? No 07/01/2024 DH IPV Inpatient [...] HLD, migraines, DM2, and UC who [facility] and was transferred to [facility] for NSTEMI found to have HFrEF. Course [...] He was discharged with 6 days of [id number] mg BID after receiving 1 day of [...] Jardiance allergy. PCP Contact Information: Deacon Watters, SUPERVISOR [employer] [address] [facility] 1 / [facility] [address] Discharge Diagnoses (Hospital Problems) and Secondary Diagnoses [...] #HTN #HLD Mr. Rodriguez was transferred to [facility] for NSTEMI with trops of 4143 and 20,000 at the OSH, where he was loaded with ASA, plavix and started on heparin gtt. At [facility], his trops trended down to 1234. In [...] dose. Would consider changes to his regimen fpc to reduce the A1c. #GERD He takes [...] to exclude urinary tract infection. Cardiac Catheterization: ([facility]) RIGHT dominance LVEDP 10 Artery [...] 9:00 AM Dion Osullivan MD Gastroenterology at [facility] Arrive at: [facility] [phone] 09/01/2024 11:20 AM Gómez Mercer MD Dermatology at [facility] Arrive at: [facility] [address] [place] [address] 09/21/2024 2:45 PM Trung Hoyos MD Pain and Spine Center at [facility] Arrive at: [facility] [phone] Future Orders Complete By Expires Referral to Cardiac Rehab [[id number] Custom] As directed Process Instructions: If no progress note charted, please enter Clinical details in comments. Scheduling Instructions: Questions: My question or request is: NSTEMI, PCI, HFrEF- cardiac rehab at [facility] Referral to Cardiology [REF12 Custom] As directed Process Instructions: If no progress note charted, please enter Clinical details in comments. Scheduling Instructions: Questions: My question or request is: NEW PATIENT - hospital follow up for NSTEMI s/p PCI to LCx and new HFrEF, does not have appt on [email or web address] please call him with appt slot General [...] appointments: During 8am-5pm Thursday through Thursday call [phone] to speak with a nurse in the cardiology clinic All other times call [phone] and ask to speak to the md pediatric allergist commercial litigation associate. Home oxygen therapy: none Arrangements for VNA/home care: none Follow up Appointments: Future Appointments Date Time Provider Department Center 08/15/2024 9:00 AM Dion Osullivan MD [facility] GASTRO [facility] 09/01/2024 11:20 AM Gómez Mercer MD [facility] 09/21/2024 2:45 PM Trung Hoyos MD [facility] Pain Sp [facility] Forensic Engineer: [facility] - referral sent and they are aware you need an appointment. If they do not reach out to you with an appointment in 1 week, call and ask for the cardiology clinic. PCP: Deacon Watters APRN at [phone] on July 08 at 4 PM Your Inpatient Doctor(s) at [facility]: Armond Denny MD - Attending physician Your Primary Care Provider: Deacon Watters APRN [address] / [facility] [address] If you have non-emergent questions between now and the time of your follow up appointments: During 8am-5pm Thursday through Thursday call [phone] to speak with a nurse in the cardiology clinic All other times call [phone] and ask to speak to the md pediatric allergist commercial litigation associate. Provider Contact Information: Deacon Watters APRN [address] [facility] 1 / [facility] [address] Discharge References/Attachments: Discharge References/Attachments None For questions regarding this document or issues relating to this hospitalization on the Medical Service, please contact your inpatient physician through the [facility] Surgical Tech . Issues afterhours and on weekends will be handled by the Forensic Engineer staff on-call. Signed: Ronel Hensley MD Internal [...] appointments: During 8am-5pm Thursday through Thursday call [phone] to speak with a nurse in the cardiology clinic All other times call [phone] and ask to speak to the md pediatric allergist commercial litigation associate. Home oxygen therapy: none Arrangements for VNA/home care: none Follow up Appointments: Future Appointments Date Time Provider Department Center 08/15/2024 9:00 AM Dion Osullivan MD [facility] GASTRO [facility] 09/01/2024 11:20 AM Gómez Mercer MD [facility] 09/21/2024 2:45 PM Trung Hoyos MD [facility] Pain Sp [facility] Forensic Engineer: [facility] - referral sent and they are aware you need an appointment. If they do not reach out to you with an appointment in 1 week, call and ask for the cardiology clinic. PCP: Deacon Watters APRN at [phone] on July 08 at 4 PM Your Inpatient Doctor(s) at [facility]: Armond Denny MD - Attending physician Your Primary Care Provider: Deacon Watters APRN [address] [place] [address] If you have non-emergent questions between now and the time of your follow up appointments: During 8am-5pm Thursday through Thursday call [phone] to speak with a nurse in the cardiology clinic All other times call [phone] and ask to speak to the md pediatric allergist commercial litigation associate. documented in this encounter Medications at Time [...] migraines, DM2, and UC whowas transferred to [facility] for NSTEMI and now found to have [...] 3.66) performed by Dion Osullivan MD at [facility] ENDOSCOPY PRO COLONOSCOPY, BIOPSY N/A 02/22/2019 COLONOSCOPY FLEXIBLE, WITH BX (WRVU 3.66) performed by Dion Osullivan MD at [facility] ENDOSCOPY PRO COLONOSCOPY, BIOPSY N/A 03/28/2022 COLONOSCOPY FLEXIBLE, WITH BX (WRVU 3.66) performed by Mona Turner MD at [facility] ENDOSCOPY PRO COLONOSCOPY, BIOPSY N/A 01/20/2024 COLONOSCOPY FLEXIBLE, WITH BX (WRVU 3.56) performed by Anthony Hamlin MD at [facility] ENDOSCOPY PRO COLONOSCOPY, DIAGNOSTIC 11/27/2011 COLONOSCOPY, DIAGNOSTIC performed by Dion OSULLIVAN at [facility] ENDOSCOPY PRO COLONOSCOPY, DIAGNOSTIC 07/13/2014 COLONOSCOPY, DIAGNOSTIC performed by Dion Osullivan MD at [facility] ENDOSCOPY PRO COLONOSCOPY, REMV LESN, SNARE N/A 02/22/2019 COLONOSCOPY, POLYPECTOMY, REMOVAL LESION BY SNARE (WRVU 4.67) performed by Dion Osullivan MD at [facility] ENDOSCOPY PRO COLONOSCOPY, REMV LESN, SNARE N/A 02/26/2021 COLONOSCOPY, POLYPECTOMY, REMOVAL LESION BY SNARE (WRVU 4.67) performed by Dion Osullivan MD at [facility] ENDOSCOPY PRO SIGMOIDOSCOPY, DIAGNOSTIC 03/16/2012 FLEXIBLE SIGMOIDOSCOPY performed by YUDI MALLOY at [facility] ENDOSCOPY PRO UPPER GI ENDOSCOPY, DIAGNOSTIC N/A 04/28/2019 EGD, UPPER GI ENDOSCOPY performed by Iza Coates MD at [facility] ENDOSCOPY UPPER GI ENDOSCOPY, EXAM 10/01/2012 UPPER GI ENDOSCOPY performed by Dion OSULLIVAN at [facility] ENDOSCOPY Social History: Home set-up: Lives on the first floor of a two level home in [place], [place] Stairs: FOS with bilateral rails vs a few stairs through the back to the first level, 8 step between rooms Bathroom Set-up: Tub-shower with grab bars, no shower chair Baseline Mobility: Ambulates without an assistive device. Independent with I/ADLs, including driving. 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 He enjoys taking care of his property including [employer] wood. He sleeps in a flat bed. 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 [...] Moderate Complexity Evaluation Qing Braxton, PT Pager: [phone] Physical Therapy Inpatient Rehabilitation Department * Day, Tray Bassett OT - 07/04/2024 9:40 AM EDT Occupational Therapy Evaluation Patient profile: Brian Rodriguez is a 74 y.o. male admitted on 06/30/2024 with PMHx of HTN, HLD, migraines, DM2, and UC who was transferred to [facility] for NSTEMI and now found to have HFrEF. Pt now s/p PCIto LCX. Past Medical History: Diagnosis Date Asthma 10/01/2011 Diabetes mellitus 10/01/2011 GERD (gastroesophageal reflux disease) 10/01/2011 Hearing loss 10/01/2011 Hydrocele 10/01/2011 Ulcerative colitis 10/01/2011 Past Surgical History: Procedure Laterality Date PRO COLONOSCOPY, BIOPSY N/A 02/12/2017 COLONOSCOPY FLEXIBLE, WITH BX (WRVU 3.66) performed by Dion Osullivan MD at [facility] ENDOSCOPY PRO COLONOSCOPY, BIOPSY N/A 02/22/2019 COLONOSCOPY FLEXIBLE, WITH BX (WRVU 3.66) performed by Dion Osullivan MD at [facility] ENDOSCOPY PRO COLONOSCOPY, BIOPSY N/A 03/28/2022 COLONOSCOPY FLEXIBLE, WITH BX (WRVU 3.66) performed by Mona Turner MD at [facility] ENDOSCOPY PRO COLONOSCOPY, BIOPSY N/A 01/20/2024 COLONOSCOPY FLEXIBLE, WITH BX (WRVU 3.56) performed by Anthony Hamlin MD at [facility] ENDOSCOPY PRO COLONOSCOPY, DIAGNOSTIC 11/27/2011 COLONOSCOPY, DIAGNOSTIC performed by Dion OSULLIVAN at [facility] ENDOSCOPY PRO COLONOSCOPY, DIAGNOSTIC 07/13/2014 COLONOSCOPY, DIAGNOSTIC performed by Dion Osullivan MD at [facility] ENDOSCOPY PRO COLONOSCOPY, REMV LESN, SNARE N/A 02/22/2019 COLONOSCOPY, POLYPECTOMY, REMOVAL LESION BY SNARE (WRVU 4.67) performed by Dion Osullivan MD at [facility] ENDOSCOPY PRO COLONOSCOPY, REMV LESN, SNARE N/A 02/26/2021 COLONOSCOPY, POLYPECTOMY, REMOVAL LESION BY SNARE (WRVU 4.67) performed by Dion Osullivan MD at [facility] ENDOSCOPY PRO SIGMOIDOSCOPY, DIAGNOSTIC 03/16/2012 FLEXIBLE SIGMOIDOSCOPY performed by YUDI MALLOY at [facility] ENDOSCOPY PRO UPPER GI ENDOSCOPY, DIAGNOSTIC N/A 04/28/2019 EGD, UPPER GI ENDOSCOPY performed by Iza Coates MD at [facility] ENDOSCOPY UPPER GI ENDOSCOPY, EXAM 10/01/2012 UPPER GI ENDOSCOPY performed by Dion OSULLIVAN at [facility] ENDOSCOPY Social History: Home set-up: Lives on the first floor of a two level home in [place], [place] Stairs: FOS with bilateral rails vs a few stairs through the back to the first level, 8 step between rooms Bathroom Set-up: Tub-shower with grab bars, no shower chair Baseline Mobility: Ambulates without an assistive device. Independent with I/ADLs, including driving. 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 He enjoys taking care of his property including [employer]. He sleeps in a flat bed. 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 [...] evaluation only Total Minutes, Occupational Therapy: 39 (2940-1479AM; Eval; 1 unit) 2017 OT Evaluation Code [...] and measurable assessment of functional outcome. Pager: [phone] Tray Logan OTR/L Occupational Therapy Rehabilitation Department * Armond Denny MD - 07/03/2024 7:03 AM EDT Inpatient Cardiology Progress Note Patient Name: Brian Rodriguez Date of Admission: 06/30/2024 ( Hospital Day 3 days ) Service: S2 ID: Brian Rodriguez is a 74 y.o. male with PMHx of HTN, HLD, migraines, DM2, and UC who presented [facility] for chest pain and was transferred to [facility] for NSTEMI found to have HFrEF. Active [...] 1809 PROBNP 2,259* Trops: OSH 4143 >20,000>> [facility] 1234 and 1274 06/30 Telemetry: some PVCs [...] to exclude urinary tract infection. Cardiac Catheterization: ([facility]) RIGHT dominance LVEDP 10 Artery [...] DM2, and UC who was transferred to [facility] for NSTEMI and now found to have [...] 7.3. Will need outpatient follow up for fpc changes. - holding home glipizide and metformin [...] Katia Reid MD Internal Medicine PGY-3 Pager [phone], M1-S2 Service CARDIOLOGY STAFF NOTE I have personally interviewed and examined the patient and reviewed appropriate data, including labs, ECGs and other diagnostic studies. I agree with the principal findings documented above. The assessment and plan were formulated in discussion with me. Armond Denny MD, [facility] Staff Forensic Engineer health record technician * Armond Denny MD - 07/02/2024 6:17 AM EDT Inpatient Cardiology Progress Note Patient Name: Brian M Rodriguez Date of Admission: 06/30/2024 ( Hospital Day 2 days ) Service: S2 ID: Brian Rodriguez is a 74 y.o. male with PMHx of HTN, HLD, migraines, DM2, and UC [facility] to [facility] for NSTEMI found to have HFrEF. Active [...] 1809 PROBNP 2,259* Trops: OSH 4143 >20,000>> [facility] 1234 and 1274 06/30 Telemetry: some PVCs [...] to exclude urinary tract infection. Cardiac Catheterization: ([facility]) RIGHT dominance LVEDP 10 Artery [...] DM2, and UC who was transferred to [facility] for NSTEMI and now found to have [...] 7.3. Will need outpatient follow up for termination clerk changes. - holding home glipizide and metformin [...] Ronel Hensley MD Internal Medicine PGY-1 Pager [phone], M1-S2 Service CARDIOLOGY STAFF NOTE I have personally interviewed and examined the patient and reviewed appropriate data, including labs, ECGs and other diagnostic studies. I agree with the principal findings documented above. The assessment and plan were formulated in discussion with me. Armond Denny MD, [facility] Staff Forensic Engineer health record technician * Armond Denny MD - 07/01/2024 6:15 AM EDT Inpatient Cardiology Progress Note Patient Name: Brian Rodriguez Date of Admission: 06/30/2024 ( Hospital Day 1 day ) Service: S2 ID: Brian Rodriguez is a 74 y.o. male with PMHx of HTN, HLD, migraines, DM2, and UC who presented [facility] for chest pain and was transferred to [facility] for NSTEMI found to have HFrEF. Active Problems: Active Hospital Problems Diagnosis NSTEMI (non-ST elevated myocardial infarction) Resolved Hospital Problems No resolved problems to display. 24 hr events: Yesterday - transferred to [facility] for NSTEMI Overnight - no acute events [...] 1809 PROBNP 2,259* Trops: OSH 4143 >20,000>> [facility] 1234 and 1274 last night Telemetry: NSR [...] DM2, and UC who was transferred to [facility] for NSTEMI and now found to have [...] 7.3. Will need outpatient follow up for termination clerk changes. - holding home glipizide and metformin [...] Ronel Hensley MD Internal Medicine PGY-1 Pager [phone], M1-S2 Service CARDIOLOGY STAFF NOTE I have personally interviewed and examined the patient and reviewed appropriate data, including labs, ECGs and other diagnostic studies. I agree with the principal findings documented above. The assessment and plan were formulated in discussion with me. Plan for cath today and introduction of full complement of medical therapies for ACS/HFrEF. Armond Denny MD, [facility] Staff Forensic Engineer health record technician documented in this encounter H&P Notes * Joshua Díazdot Woodard, [employer] - 07/01/2024 9:33 AM EDT Images from [...] PCP: Deacon Watters APRN PCP phone #: [phone] ID/Chief Complaint: Brian Rodriguez is a 74 y.o. male with PMHx of HTN, HLD, migraines, DM2, and UC who presented to [facility] for chest pain and was transferred to [facility] for NSTEMI. History of Present Illness: Brian [...] infarction) Ulcerative colitis Colonoscopy 04/08/10 (Dr. Gomes [facility]) - inflammation only within the rectum and sigmoid; extent of the exam was to the hepatic flexure; biopsies proximal to the sigmoid nl Repeat exam 11/27/11 ([facility] ascending colon. Several HPs and one TA. [place] 03/2022 - [place] limited to [...] in the last 7068 hours. Invalid input(s): [id number] Heme: No results for input(s): LDH, HAPTOGLOBIN, [...] DM2, and UC who was transferred to [facility] for NSTEMI. Given Brian's presentation and his [...] Admit to Cardiology, S2 Team Pager # [phone] #NSTEMI > trops elevated to 4143 and 20,000 at OSH - s/p ASA and Plavix load - heparin gtt - continue 81 mg ASA - continue 75 mg plavix - repeat EKG with posterior leads - restarted atorvastatin 80 mg - TTE pending - trending trops here - NPO at midnight for [facility] tomorrow #Migraines - holding propranolol [...] in an outpatient cardiac rehabilitation program at [facility] was discussed. Patient agrees to a referral to this program. The referral will be sent at discharge and the patient should be contacted by the Program within 1-2 weeks from discharge. * Consult Note - Loranie Howell LPN - 07/04/2024 9:43 AM EDT [...] Operative Note Patient Name: Brian Rodriguez : [id number] MR#: [id number] Case Date: 07/01/2024 Surgeon: Surgeons and Role: [...] 07/01/2024 12:11 PM EDT Brian completed a [place] Advanced directive and stated that if he [...] surrogate would be surrogate decision maker per [place] surrogate decision making law. (Only good for 180 days) Any patient receiving care in [place] must abide by [place] law. The hierarchy for surrogate decision making [...] (i) The agent with financial power of claims attorney or a conservator appointed in accordance [...] were you homeless or living in a fpc (including now)?: No In the past 12 months has the [employer], gas, oil, or water [employer] threatened to shut off services in your [...] Current DME: none Home Address confirmed as: [address] [place] [address] Social & Family Supports: All names listed below confirmed with patient as current and correct Extended Emergency Contact Information Primary Emergency Contact: Sabrina Eisenberg Address: [address] [place] [phone] [facility] Mobile Relation: Child Secondary Emergency Contact: Enrique [...] Yes ; Prescription Coverage: Yes Preferred Pharmacy: [facility] [address] [address] [place] Status: Patient is a : No Primary Care Provider confirmed: Deacon Watters, SUPERVIS[employer] [phone] Potential Needs for Transition of Care: none [...] 9:00 AM EDT Office [place] [address] Dion Osullivan MD [facility] [place] [address] 09/01/2024 9:40 AM EDT Office Visit Cardiology at [address] [phone] Franky Shaver MD [facility] [place] [address] 09/01/2024 11:20 AM EDT Office Visit Dermatology at [address] [address] Gómez Mercer MD [facility] DR EDD[place] [address] 09/21/2024 2:45 PM EDT Office Visit [place] [phone] Trung Hoyos MD [facility] [place] [address] Scheduled Referrals Name Type Priority Associated Diagnoses [...] PM EDT URINALYSIS BEAKER MICROSCPIC REFLEX EXAM ([facility]) Routine 07/03/2024 3:02 PM EDT URINALYSIS [...] CARE TEST O CEE Performing Organization Address [facility] Co de Phone Number [facility] [place] [address] * (ABNORMAL) POC, GLUCOSE (07/04/2024 11:55 AM [...] O RDMELISSA [facility] [place] [address] * (ABNORMAL) POC, GLUCOSE (07/04/2024 11:18 AM EDT) Glucometer, POC 259(H) 65 - 199 mg/dL 07/04/2024 11:32 AM EDT [facility] Comment:Supplemental ranges: <140 mg/dL before meals <180 mg/dL all other times of the day. Blood CAPILLARY BLOOD / Unknown 07/04/2024 11:18 AM EDT 07/04/2024 11:32 AM EDT Armond Denny MD POINT OF CARE TEST O DANIELERAOMAR Performing Organization Address City/[facility] Co de Phone Number [facility] [place] [address] * POC, GLUCOSE (07/04/2024 8:04 AM EDT) Glucometer, POC 111 65 - 199 mg/dL 07/04/2024 8:04 AM EDT [facility] Comment:Supplemental ranges: <140 mg/dL before meals <180 mg/dL all other times of the day. Blood CAPILLARY BLOOD / Unknown 07/04/2024 8:04 AM EDT 07/04/2024 8:04 AM EDT Armond Denny MD POINT OF CARE TEST O CEE Performing Organization Address City/[facility]/ZIP Co de Phone Number [facility] [place] [address] * Magnesium (07/04/2024 1:43 AM EDT) Magnesium 0.80 0.69 - 1.07 mMol/L 07/04/2024 2:23 AM EDT [facility] Blood VENOUS BLOOD SPECIMEN / Unknown IP Care Team Draw / Unknown 07/04/2024 1:43 AM EDT 07/04/2024 1:52 AM EDT Triston Godinez MD CHEMISTRY ORDERABLES [facility] [place] [address] * (ABNORMAL) Basic Metabolic Panel (07/04/2024 1:43 AM EDT) Glucose 156 65 - 199 mg/dL 07/04/2024 2:23 AM EDT [facility] Comment:Glucose Concentratio n >=200 mg/dL plus symptoms is consistent with Diabetes Mellitus. Blood Urea Nitrogen 12 10 - 20 mg/dL 07/04/2024 2:[facility] Creatinine 1.27 0.80 - 1.50 mg/dL 07/04/2024 2:23 AM [facility] Sodium 141 135 - 145 mMol/L 07/04/2024 2:23 AM [facility] Potassium 3.9 3.5 - 5.0 mMol/L 07/04/2024 2:23 AM [facility] Chloride 108(H) 98 - 107 mMol/L 07/04/2024 2:23 AM [facility] Carbon Dioxide 22 22 - 31 mMol/L 07/04/2024 2:23 AM [facility] Anion Gap 11 5 - 15 mMol/L 07/04/2024 2:23 AM [facility] LABORATORY Calcium 9.4 8.5 - 10.5 mg/dL 07/04/2024 2:[facility] Est Glomerular Filtration Rate - Male 59 mL/min/1. 73 m?? 07/04/2024 2:23 AM [facility] Comment: This patient's estimated [...] CHEMISTRY ORDERABLES [facility] [place] [address] * (ABNORMAL) CBC (with Diff) (07/04/2024 1:43 AM EDT) White Blood Cell 5.05 4.00 - 9.50 x10(3)/mc L 07/04/2024 2:00 [facility] Red Blood Cell 3.11(L) 4.58 - 5.54 x10(6)/mc L 07/04/2024 2:00 [facility] Hemoglobin 10.5(L) 13.7 - 16.5 g/dL 07/04/2024 2:00 AM [facility] Hematocrit 31.5(L) 40.5 - 48.5 % 07/04/2024 2:00 AM [facility] Mean Cell Volume 101.3(H) 82.9 - 93.1 fL 07/04/2024 2:00 AM [facility] Mean Cell Hemoglobin 33.8(H) 27.5 - 32.1 pg 07/04/2024 2:00 AM [facility] Mean Cell Hemoglobin Concentration 33.3 32.0 - 35.7 g/dL 07/04/2024 2:00 AM [facility] Platelet 145 145 - 357 x10(3)/mc L 07/04/2024 2:00 AM [facility] Mean Platelet Volume 11.5 7.6 - 12.9 fL 07/04/2024 2:00 AM [facility] RDW Standard Deviation 48.2(H) 36.0 - 45.0 fL 07/04/2024 2:00 AM [facility] RDW coefficient of variation 13.1 11.4 - 13.8 % 07/04/2024 2:00 AM [facility] NRBC% auto 0.0 % 07/04/2024 2:00 AM [facility] NRBC Absolute 0.00 0.00 - 0.00 x10(3)/mc L 07/04/2024 2:00 AM [facility] Neutrophil % 65.9 % 07/04/2024 2:00 AM [facility] Neutrophil Absolute 3.33 1.70 - 6.10 x10(3)/mc L 07/04/2024 2:00 AM [facility] Lymph % 20.8 % 07/04/2024 2:00 AM [facility] Lymph Absolute 1.05 0.90 - 3.20 x10(3)/mc L 07/04/2024 2:00 AM [facility] Monocyte % 9.3 % 07/04/2024 2:00 AM [facility] Monocyte Absolute 0.47 0.30 - 0.90 x10(3)/mc L 07/04/2024 2:00 AM [facility] Eos % 3.0 % 07/04/2024 2:00 AM [facility] Eos Absolute 0.15 0.00 - 0.40 x10(3)/mc L 07/04/2024 2:00 AM [facility] Basophil % 0.6 % 07/04/2024 2:00 AM [facility] Baso Absolute 0.03 0.00 - 0.10 x10(3)/mc L 07/04/2024 2:00 AM [facility] Immature Gran % 0.4 % 2:00 AM EDT [facility] Immature Gran Absolute 0.02 0.00 - 0.04 x10(3)/mc L 07/04/2024 2:00 AM EDT [facility] Blood VENOUS BLOOD SPECIMEN / Unknown IP Care Team Draw / Unknown 07/04/2024 1:43 AM EDT 07/04/2024 1:52 AM EDT Triston Godinez MD HEMATOLOGY ORDERABLE S Performing Organization Address [facility]/ZIP Co de Phone Number [facility] [place] [address] * (ABNORMAL) POC, GLUCOSE (07/03/2024 8:02 PM EDT) Glucometer, POC 251(H) 65 - 199 mg/dL 07/03/2024 8:02 PM EDT [facility] Comment:Supplemental ranges: <140 mg/dL before meals <180 mg/dL all other times of the day. Blood CAPILLARY BLOOD / Unknown 07/03/2024 8:02 PM EDT 07/03/2024 8:02 PM EDT Armond Denny MD POINT OF CARE TEST O CEE Performing Organization Address [facility] Co de Phone Number [facility] [place] [address] * (ABNORMAL) POC, GLUCOSE (07/03/2024 4:47 PM EDT) Glucometer, POC 217(H) 65 - 199 mg/dL 07/03/2024 4:47 PM EDT [facility] Comment:Supplemental ranges: <140 mg/dL before meals <180 mg/dL all other times of the day. Blood CAPILLARY BLOOD / Unknown 07/03/2024 4:47 PM EDT 07/03/2024 4:47 PM EDT Armond Denny MD POINT OF CARE TEST O RDERABLES Performing Organization Address [facility]/ZIP Co de Phone Number [facility] [place] [address] * (ABNORMAL) Urine culture (07/03/2024 3:02 PM EDT) Urine Culture 50,000-99,000 cfu/ml Escherichia coli(A) VITEK 2 METHOD 07/05/2024 8:01 AM EDT [facility] Urine Culture 10,000-49,000 cfu/ml mixed mucosal hairka VITEK 2 METHOD 07/05/2024 8:01 AM EDT [...] - GENER AL ORDERABLES Performing Organization Address City/[facility]/ZIP Co de Phone Number [facility] [place] [address] * (ABNORMAL) Urinalysis Microscopic Reflex to Culture [...] Denny MD URINE ORDERABLES Performing Organization Address [facility] de Phone Number [facility] [place] [address] * Urinalysis Microscopic with Reflex to Culture (07/03/2024 3:02 PM EDT) Urine URINE SPECIMEN OBTAINED BY CLEAN CATCH PROCEDURE / Unknown Non Blood Collection / Unknown 07/03/2024 3:02 PM EDT 07/03/2024 3:13 PM EDT Armond Denny MD URINE ORDERABLES Performing Organization Address [facility] Co de Phone Number [facility] [place] [address] * (ABNORMAL) Urinalysis with reflex Culture (07/03/2024 [...] EDT [facility] Specific [place] Urine Automated 1.024 1.005 - 1.030 07/03/2024 3:40 PM [facility] Appearance, Urine Dipstick Cloudy(A) [...] URINE ORDERABLES [facility] [place] [address] * POC, GLUCOSE (07/03/2024 11:21 AM EDT) Glucometer, POC 177 65 - 199 mg/dL 07/03/2024 11:21 AM EDT [facility] Comment:Supplemental ranges: <140 mg/dL before meals <180 mg/dL all other times of the day. Blood CAPILLARY BLOOD / Unknown 07/03/2024 11:21 AM EDT 07/03/2024 11:21 AM EDT Armond Denny MD POINT OF CARE TEST O CEE Performing Organization Address City/[facility]/ZIP Co de Phone Number [facility] [place] [address] * POC, GLUCOSE (07/03/2024 7:24 AM EDT) [...] O CEE [facility] [place] [address] * Magnesium (07/03/2024 4:02 AM EDT) Magnesium 0.86 0.69 - 1.07 mMol/L 07/03/2024 4:41 AM EDT [facility] Blood VENOUS BLOOD SPECIMEN / Unknown IP Care Team Draw / Unknown 07/03/2024 4:02 AM EDT 07/03/2024 4:07 AM EDT Triston Godinez MD CHEMISTRY ORDERABLES [facility] [place] [address] * Basic Metabolic Panel (07/03/2024 4:02 AM EDT) Glucose 146 65 - 199 mg/dL 07/03/2024 4:41 AM [facility] Comment:Glucose Concentratio n >=200 mg/dL plus symptoms is consistent with Diabetes Mellitus. Blood Urea Nitrogen 15 10 - 20 mg/dL 07/03/2024 4:41 AM EDT [facility] Creatinine 1.25 0.80 - 1.50 mg/dL 07/03/2024 4:41 AM [facility] Sodium 138 135 - 145 mMol/L 07/03/2024 4:41 AM [facility] Potassium 3.6 3.5 - 5.0 mMol/L 07/03/2024 4:41 AM [facility] Chloride 105 98 - 107 mMol/L 07/03/2024 4:41 AM [facility] Carbon Dioxide 22 22 - 31 mMol/L 07/03/2024 4:41 AM [facility] Anion Gap 11 5 - 15 mMol/L 07/03/2024 4:41 AM [facility] Calcium 9.2 8.5 - 10.5 mg/dL 07/03/2024 4:41 AM [facility] Est Glomerular Filtration Rate - Male 60 mL/min/1. 73 m?? 07/03/2024 4:41 AM [facility] Comment: This patient's estimated [...] CHEMISTRY ORDERABLES [facility] [place] [address] * (ABNORMAL) CBC (with Diff) (07/03/2024 4:02 AM EDT) White Blood Cell 5.90 4.00 - 9.50 x10(3)/mc L 07/03/2024 4:13 AM EDT [facility] Red Blood Cell 3.27(L) 4.58 - 5.54 x10(6)/mc L 07/03/2024 4:13 AM EDT [facility] Hemoglobin 11.0(L) 13.7 - 16.5 g/dL 07/03/2024 4:13 AM [facility] Hematocrit 33.1(L) 40.5 - 48.5 % 07/03/2024 4:13 AM EDT [facility] Mean Cell Volume 101.2(H) 82.9 - 93.1 fL 07/03/2024 4:13 AM EDT [facility] Mean Cell Hemoglobin 33.6(H) 27.5 - 32.1 pg 07/03/2024 4:13 AM [facility] Mean Cell Hemoglobin Concentration 33.2 32.0 - 35.7 g/dL 07/03/2024 4:13 AM EDT [facility] Platelet 156 145 - 357 x10(3)/mc L 07/03/2024 4:[facility] Mean Platelet Volume 11.3 7.6 - 12.9 fL 07/03/2024 4:13 AM EDT [facility] RDW Standard Deviation 47.5(H) 36.0 - 45.0 fL 07/03/2024 4:13 AM [facility] RDW coefficient of variation 12.7 11.4 - 13.8 % 07/03/2024 4:13 AM [facility] NRBC% auto 0.0 % 07/03/2024 4:13 AM [facility] NRBC Absolute 0.00 0.00 - 0.00 x10(3)/mc L 07/03/2024 4:13 AM [facility] Neutrophil % 70.0 % 07/03/2024 4:13 AM [facility] Neutrophil Absolute 4.13 1.70 - 6.10 x10(3)/mc L 07/03/2024 4:13 AM [facility] Lymph % 18.3 % 07/03/2024 4:13 AM [facility] Lymph Absolute 1.08 0.90 - 3.20 x10(3)/mc L 07/03/2024 4:13 AM [facility] Monocyte % 8.5 % 07/03/2024 4:13 AM [facility] Monocyte Absolute 0.50 0.30 - 0.90 x10(3)/mc L 07/03/2024 4:13 AM [facility] Eos % 2.4 % 07/03/2024 4:13 AM [facility] Eos Absolute 0.14 0.00 - 0.40 x10(3)/mc L 07/03/2024 4:13 AM [facility] Basophil % 0.5 % 07/03/2024 4:13 AM [facility] Baso Absolute 0.03 0.00 - 0.10 x10(3)/mc L 07/03/2024 4:13 AM [facility] Immature Gran % 0.3 % 4:13 AM [facility] Immature Gran Absolute 0.02 0.00 - 0.04 x10(3)/mc L 07/03/2024 4:13 AM EDT [facility] Blood VENOUS BLOOD SPECIMEN / Unknown IP Care Team Draw / Unknown 07/03/2024 4:02 AM EDT 07/03/2024 4:07 AM EDT Trsiton Godinez MD HEMATOLOGY ORDERABLE S Performing Organization Address [facility] Co de Phone Number [facility] [place] [address] * (ABNORMAL) POC, GLUCOSE (07/02/2024 8:45 PM [...] O CEE Performing Organization Address [facility] de Phone Number [facility] [place] [address] * (ABNORMAL) POC, GLUCOSE (07/02/2024 4:18 PM EDT) Glucometer, POC 213(H) 65 - 199 mg/dL 07/02/2024 4:19 PM EDT [facility] Comment:Supplemental ranges: <140 mg/dL before meals <180 mg/dL all other times of the day. Blood CAPILLARY BLOOD / Unknown 07/02/2024 4:18 PM EDT 07/02/2024 4:19 PM EDT Armond Denny MD POINT OF CARE TEST O CEE Performing Organization Address [facility] Co de Phone Number [facility] [place] [address] * (ABNORMAL) POC, GLUCOSE (07/02/2024 11:21 AM EDT) Glucometer, POC 234(H) 65 - 199 mg/dL 07/02/2024 11:21 AM EDT [facility] Comment:Supplemental ranges: <140 mg/dL before meals <180 mg/dL all other times of the day. Blood CAPILLARY BLOOD / Unknown 07/02/2024 11:21 AM EDT 07/02/2024 11:21 AM EDT Armond Denny MD POINT OF CARE TEST O CEE Performing Organization Address City/[facility]/ZIP Co de Phone Number [facility] [place] [address] * POC, GLUCOSE (07/02/2024 7:28 AM EDT) [...] O CEE [facility] [place] [address] * Magnesium (07/02/2024 7:12 AM EDT) Magnesium 0.89 0.69 - 1.07 mMol/L 07/02/2024 8:09 AM EDT [facility] Blood VENOUS BLOOD SPECIMEN / Unknown IP Care Team Draw / Unknown 07/02/2024 7:12 AM EDT 07/02/2024 7:19 AM EDT Triston Godinez MD CHEMISTRY ORDERABLES [facility] [place] [address] * Basic Metabolic Panel (07/02/2024 7:12 AM EDT) Glucose 161 65 - 199 mg/dL 07/02/2024 8:09 [facility] Comment:Glucose Concentratio n >=200 mg/dL plus symptoms is consistent with Diabetes Mellitus. Blood Urea Nitrogen 13 10 - 20 mg/dL 07/02/2024 8:09 AM [facility] Creatinine 1.18 0.80 - 1.50 mg/dL 07/02/2024 8:09 AM [facility] Sodium 136 135 - 145 mMol/L 07/02/2024 8:09 AM [facility] Potassium 3.6 3.5 - 5.0 mMol/L 07/02/2024 8:09 AM [facility] Chloride 104 98 - 107 mMol/L 07/02/2024 8:09 AM [facility] Carbon Dioxide 24 22 - 31 mMol/L 07/02/2024 8:09 AM [facility] Anion Gap 8 5 - 15 mMol/L 07/02/2024 8:09 AM [facility] Calcium 8.8 8.5 - 10.5 mg/dL 07/02/2024 8:09 AM [facility] Est Glomerular Filtration Rate - Male 64 mL/min/1. 73 m?? 07/02/2024 8:09 AM [facility] Comment: This patient's estimated [...] CHEMISTRY ORDERABLES [facility] [place] [address] * (ABNORMAL) CBC (with Diff) (07/02/2024 7:12 AM EDT) White Blood Cell 5.99 4.00 - 9.50 x10(3)/mc L 07/02/2024 7:41 [facility] Red Blood Cell 3.36(L) 4.58 - 5.54 x10(6)/mc L 07/02/2024 7:41 AM EDT [facility] Hemoglobin 11.3(L) 13.7 - 16.5 g/dL 07/02/2024 7:41 AM [facility] Hematocrit 34.3(L) 40.5 - 48.5 % 07/02/2024 7:41 AM [facility] Mean Cell Volume 102.1(H) 82.9 - 93.1 fL 07/02/2024 7:41 AM [facility] Mean Cell Hemoglobin 33.6(H) 27.5 - 32.1 pg 07/02/2024 7:41 AM [facility] Mean Cell Hemoglobin Concentration 32.9 32.0 - 35.7 g/dL 07/02/2024 7:41 AM [facility] Platelet 155 145 - 357 x10(3)/mc L 07/02/2024 7:41 AM [facility] Mean Platelet Volume 11.3 7.6 - 12.9 fL 07/02/2024 7:41 AM [facility] RDW Standard Deviation 48.2(H) 36.0 - 45.0 fL 07/02/2024 7:41 AM [facility] RDW coefficient of variation 12.9 11.4 - 13.8 % 07/02/2024 7:41 AM [facility] NRBC% auto 0.0 % 07/02/2024 7:41 AM [facility] NRBC Absolute 0.00 0.00 - 0.00 x10(3)/mc L 07/02/2024 7:41 AM [facility] Neutrophil % 75.2 % 07/02/2024 7:41 AM [facility] Neutrophil Absolute 4.50 1.70 - 6.10 x10(3)/mc L 07/02/2024 7:41 AM [facility] Lymph % 14.0 % 07/02/2024 7:41 AM [facility] Lymph Absolute 0.84(L) 0.90 - 3.20 x10(3)/mc L 07/02/2024 7:41 AM [facility] Monocyte % 8.7 % 07/02/2024 7:41 AM [facility] Monocyte Absolute 0.52 0.30 - 0.90 x10(3)/mc L 07/02/2024 7:41 AM [facility] Eos % 1.3 % 07/02/2024 7:41 AM [facility] Eos Absolute 0.08 0.00 - 0.40 x10(3)/mc L 07/02/2024 7:41 AM [facility] Basophil % 0.5 % 07/02/2024 7:41 AM [facility] Baso Absolute 0.03 0.00 - 0.10 x10(3)/mc L 07/02/2024 7:41 AM [facility] Immature Gran % 0.3 % 7:41 AM [facility] Immature Gran Absolute 0.02 0.00 - 0.04 x10(3)/mc L 07/02/2024 7:41 AM EDT [facility] Blood VENOUS BLOOD SPECIMEN / Unknown IP Care Team Draw / Unknown 07/02/2024 7:12 AM EDT 07/02/2024 7:19 AM EDT Triston Godinez MD HEMATOLOGY ORDERABLE S [facility] [place] [address] * CT Abdomen & Pelvis w Contrast (07/02/2024 3:13 AM EDT) WORKSTATION ID [id number] RAD Anatomical Region Laterality Modality Abdomen, Pelvis [...] who have questions please contact the health intensive care anaesthetist that requested your imaging first. ? Electronically signed by: Gutierrez Hamilton MD, [facility] ([phone]), at 07/02/2024 9:20 AM Narrative 07/02/2024 9:20 [...] patients who have questions please contactthe health intensive care anaesthetist that requested your imaging first. Triston Godinez [...] CARE TEST O RDERABLES Performing Organization Address [facility] Co de Phone Number [facility] [place] [address] * POC, GLUCOSE (07/01/2024 6:41 PM EDT) Glucometer, POC 91 65 - 199 mg/dL 07/01/2024 6:41 PM EDT [facility] Comment:Supplemental ranges: <140 mg/dL before meals <180 mg/dL all other times of the day. Blood CAPILLARY BLOOD / Unknown 07/01/2024 6:41 PM EDT 07/01/2024 6:41 PM EDT Armond Denny MD POINT OF CARE TEST O RDMELISSA Performing Organization Address [facility] Co de Phone Number [facility] [place] [address] * EKG 12 Lead (07/01/2024 5:24 PM EDT) Ventricular rate 77 BPM MUSE SYSTEM Atrial Rate 77 BPM MUSE SYSTEM P-R Interval 178 ms MUSE SYSTEM QRS Duration 138 ms MUSE SYSTEM Q-T Interval 418 ms MUSE SYSTEM QTC Calculated (Bezet) 473 ms MUSE SYSTEM Calculated P [place] 63 degrees MUSE SYSTEM Calculated R [place] 87 degrees MUSE SYSTEM Calculated T [place] 8 degrees MUSE SYSTEM INTERPRETATION Normal sinus [...] Modality Other Narrative 07/01/2024 7:47 PM EDT ?[facility] ? Cardiac Catheterization/Intervention Report ? Patient Name: Brian Rodriguez. ? Procedure Date: 07/01/2024 ? A #: [id number] ? Primary Physician: Mogadam, Emad ? Case #: [id number] ? File Name: [id number] ? Catheterization Order Number: [id number] ? [facility] ? Final Report [place], [place] ? Patient Name: ? Brian M. Rodriguez ?ID#: ?[id number] ? : ?1950 ? Procedure Date: ? July 01, 2024 ? Case #: ? [id number] ? Room: ? 5 ? Case Physician: [...] procedure was Urgent. The indication for ?the mason tender restoration labor visit is ACS less than or equal [...] A premounted 2.75 x 22 mm Rodo Kersey (EILEEN) was deployed ? with a maximum [...] dose administered prior to arrival in the mason tender restoration labor. ?Recommended anti-platelet/anti-thrombotic regimen: ?Continue aspirin 81 mg daily. ?Continue clopidogrel 75 mg daily. ?These recommendations are made at the time of the intervention. Patient ?and provider preferences or a changing clinical situation may require ?modification of this regimen. Consult [facility] Interventional Cardiology for ?questions. ?This patient has [...] against any medical treatment. Consult ?http://tools.acc.org/DAPTriskapp/#!/content/calculator/ or [facility] ?Interventional Cardiology for questions ? Conclusions: ?* [...] Procedure Note Lizzette Hayden MD - 07/14/2024 [facility] Cardiac Catheterization/Intervention Report Patient Name: Brian Rodriguez Procedure Date: 07/01/2024 A #: [id number] Primary Physician: Lizzette Hayden Case #: [id number] File Name: [id number] Catheterization Order Number: [id number] [facility] FinalReport [place], [place] Patient Name: Brian Rodriguez ID#:[id number] :1950 Procedure Date: July 01, 2024 Case [...] patient was designated as ASA Class III. [facility] is 4: Vulnerable. Diagnostic Tests: Medications Prior to Procedure: Aspirin, Angiotensin II Receptor Leo and Statin. Indications for Diagnostic Cath: The priority of the diagnostic procedure was Urgent. The indicationfor the mason tender restoration labor visit is ACS less than or equal [...] time was 37.0 minutes, dose area product qkl854.00 Gy/cm2 and air kerma was 1,874 mGY. [...] The lesion was predilated with a 2.50mm [id number] MM balloon with a maximum inflation pressure of 14atmospheres. A premounted 2.75 x 22 mm [place] Kersey (EILEEN) wasdeployed with a maximum inflation pressure [...] dose administered prior to arrival in the mason tender restoration labor. Recommended anti-platelet/anti-thrombotic regimen: Continue aspirin 81 mg daily. Continue clopidogrel 75 mg daily. These recommendations are made at the time of the intervention.Patient and provider preferences or a changing clinical situation mayrequire modification of this regimen. Consult [facility] Interventional Cardiologyfor questions. This patient has a [...] or against any medical treatment.Consult http://tools.acc.org/DAPTriskapp/#!/content/calculator/ or [facility] Interventional Cardiology for questions Conclusions: * One [...] O RDERABLES [facility] [place] [address] * (ABNORMAL) Hemogram (07/01/2024 10:32 AM EDT) White Blood Cell 7.02 4.00 - 9.50 x10(3)/mc L 07/01/2024 11:20 AM [facility] Red Blood Cell 3.68(L) 4.58 - 5.54 x10(6)/mc L 07/01/2024 11:20 AM [facility] Hemoglobin 12.2(L) 13.7 - 16.5 g/dL 07/01/2024 11:20 AM [facility] Hematocrit 36.5(L) 40.5 - 48.5 % 07/01/2024 11:20 AM [facility] Mean Cell Volume 99.2(H) 82.9 - 93.1 fL 07/01/2024 11:20 AM [facility] Mean Cell Hemoglobin 33.2(H) 27.5 - 32.1 pg 07/01/2024 11:20 AM [facility] Mean Cell Hemoglobin Concentration 33.4 32.0 - 35.7 g/dL 07/01/2024 11:20 AM [facility] Platelet 167 145 - 357 x10(3)/mc L 07/01/2024 11:20 AM [facility] Mean Platelet Volume 11.4 7.6 - 12.9 fL 07/01/2024 11:20 AM [facility] RDW Standard Deviation 46.5(H) 36.0 - 45.0 fL 07/01/2024 11:20 AM [facility] RDW coefficient of variation 12.9 11.4 - 13.8 % 07/01/2024 11:20 AM [facility] NRBC% auto 0.0 % 07/01/2024 11:20 AM [facility] NRBC Absolute 0.00 0.00 - 0.00 x10(3)/mc L 07/01/2024 11:20 AM [facility] Blood VENOUS BLOOD SPECIMEN / Unknown IP Care Team Draw / Unknown 07/01/2024 10:32 AM EDT 07/01/2024 10:54 AM EDT Armond Denny MD HEMATOLOGY ORDERABLE S Performing Organization Address [facility] Co de Phone Number [facility] [place] [address] * Heparin (unfractionated) Level (07/01/2024 10:32 AM [...] HEMATOLOGY ORDERABLE S Performing Organization Address City/[facility]/ZIP Co de Phone Number [facility] [place] [address] * POC, GLUCOSE (07/01/2024 7:18 AM EDT) Glucometer, POC 105 65 - 199 mg/dL 07/01/2024 7:19 AM EDT [facility] Comment:Supplemental ranges: <140 mg/dL before meals <180 mg/dL all other times of the day. Blood CAPILLARY BLOOD / Unknown 07/01/2024 7:18 AM EDT 07/01/2024 7:19 AM EDT Triston Godinez MD POINT OF CARE TEST O RDERABLES Performing Organization Address [facility]/ZIP Co de Phone Number [facility] [place] [address] * Heparin (unfractionated) Level (07/01/2024 3:15 AM [...] HEMATOLOGY ORDERABLE S Performing Organization Address City/[facility]/ZIP Co de Phone Number [facility] [place] [address] * (ABNORMAL) CBC (with Diff) (07/01/2024 3:15 AM EDT) White Blood Cell 5.82 4.00 - 9.50 x10(3)/mc L 07/01/2024 3:54 AM [facility] Red Blood Cell 3.60(L) 4.58 - 5.54 x10(6)/mc L 07/01/2024 3:54 AM [facility] Hemoglobin 11.9(L) 13.7 - 16.5 g/dL 07/01/2024 3:54 AM [facility] Hematocrit 35.6(L) 40.5 - 48.5 % 07/01/2024 3:54 AM [facility] Mean Cell Volume 98.9(H) 82.9 - 93.1 fL 07/01/2024 3:54 AM [facility] Mean Cell Hemoglobin 33.1(H) 27.5 - 32.1 pg 07/01/2024 3:54 AM [facility] Mean Cell Hemoglobin Concentration 33.4 32.0 - 35.7 g/dL 07/01/2024 3:54 AM [facility] Platelet 169 145 - 357 x10(3)/mc L 07/01/2024 3:54 AM [facility] Mean Platelet Volume 11.6 7.6 - 12.9 fL 07/01/2024 3:54 AM [facility] RDW Standard Deviation 46.3(H) 36.0 - 45.0 fL 07/01/2024 3:54 AM [facility] RDW coefficient of variation 12.8 11.4 - 13.8 % 07/01/2024 3:54 AM [facility] NRBC% auto 0.0 % 07/01/2024 3:54 AM [facility] NRBC Absolute 0.00 0.00 - 0.00 x10(3)/mc L 07/01/2024 3:54 AM [facility] Neutrophil % 66.6 % 07/01/2024 3:54 AM [facility] Neutrophil Absolute 3.87 1.70 - 6.10 x10(3)/mc L 07/01/2024 3:54 AM EDT [facility] Lymph % 20.4 % 07/01/2024 3:54 AM EDT [facility] Lymph Absolute 1.19 0.90 - [...] ORDERABLE S [facility] [place] [address] * Magnesium (06/30/2024 11:25 PM EDT) Magnesium 0.84 0.69 - 1.07 mMol/L 07/01/2024 12:14 AM [facility] Blood VENOUS BLOOD SPECIMEN / Unknown IP Care Team Draw / Unknown 06/30/2024 11:25 PM EDT 06/30/2024 11:47 PM EDT Triston Godinez MD CHEMISTRY ORDERABLES [facility] [place] [address] * (ABNORMAL) Basic Metabolic Panel (06/30/2024 11:25 PM EDT) Glucose 145 65 - 199 mg/dL 07/01/2024 12:14 AM [facility] Comment:Glucose Concentratio n >=200 mg/dL plus symptoms is consistent with Diabetes Mellitus. Blood Urea Nitrogen 10 10 - 20 mg/dL 07/01/2024 12:14 AM [facility] Creatinine 1.02 0.80 - 1.50 mg/dL 07/01/2024 12:14 AM [facility] Sodium 141 135 - 145 mMol/L 07/01/2024 12:14 AM [facility] Potassium 3.4(L) 3.5 - 5.0 mMol/L 07/01/2024 12:14 AM [facility] Chloride 106 98 - 107 mMol/L 07/01/2024 12:14 AM [facility] Carbon Dioxide 25 22 - 31 mMol/L 07/01/2024 12:14 AM [facility] Anion Gap 10 5 - 15 mMol/L 07/01/2024 12:14 AM [facility] Calcium 9.2 8.5 - 10.5 mg/dL 07/01/2024 12:14 AM [facility] Est Glomerular Filtration Rate - Male 76 mL/min/1. 73 m?? 07/01/2024 12:14 AM [facility] Comment: This patient's estimated [...] CHEMISTRY ORDERABLES [facility] [place] [address] * (ABNORMAL) Troponin-T, Yuriy Sensitivity 3 Hour [...] [facility] Test Catalog Troponin - https://one-.testcatalog.org/catalogs/565/files/37312 Reference: Fourth [place] Definition of Myocardial Infarction. Journal of the [place] College [employer] Cardiology 2018;72:8202-3880 Troponin-T, HS 3 hr delta 65 ng/L [...] CHEMISTRY ORDERABLES [facility] [place] [address] * (ABNORMAL) Troponin-T, High Sensitivity 1 Hour [...] troponin value can be found in the [facility] Test Catalog Troponin - https://[email or web address].org/catalogs/565/files/51288 Reference: Fourth [place] Definition of Myocardial Infarction. Journal of the [place] College of Cardiology 2018;72:4654-4483 Troponin-T, HS 1 hr delta 06/30/2024 9:22 PM EDT [facility] Comment:Delta troponin value not calculated, sample collected outside of delta calculation time limit. Blood VENOUS BLOOD SPECIMEN / Unknown Venipuncture / Unknown 06/30/2024 8:22 PM EDT 06/30/2024 8:40 PM EDT Triston Godinez MD CHEMISTRY ORDERABLES Performing Organization Address [facility]/ZIP Co de Phone Number [facility] [place] [address] * POC, GLUCOSE (06/30/2024 7:56 PM EDT) Glucometer, POC 144 65 - 199 mg/dL 06/30/2024 7:57 PM EDT [facility] Comment:Supplemental ranges: <140 mg/dL before meals <180 mg/dL all other times of the day. Blood CAPILLARY BLOOD / Unknown 06/30/2024 7:56 PM EDT 06/30/2024 7:57 PM EDT Triston Godinez MD POINT OF CARE TEST O RDERABLES Performing Organization Address City/[facility]/ZIP Co de Phone Number [facility] [place] [address] * XR Abdomen Flat & Upright (06/30/2024 6:56 PM EDT) WORKSTATION ID [id number] RAD Anatomical Region Laterality Modality Abdomen N/A Digital Radiogra phy Impressions 06/30/2024 9:12 PM EDT No obstruction or perforation. Thank you for letting us participate in the care of this patient. ??If you are a health care provider and have any questions regarding this report, please contact the number below. ??For patients who have questions please contact the health intensive care anaesthetist that requested your imaging first. ? Narrative [...] patients who have questions please contactthe health intensive care anaesthetist that requested your imaging first. Triston Godinez [...] troponin value can be found in the [facility] Test Catalog Troponin - https://[facility]-.testcatalog.org/catalogs/565/files/67164 Reference: Fourth [place] Definition of Myocardial Infarction. Journal of the [place] College of Cardiology 2018;72:2501-0407 Blood VENOUS BLOOD SPECIMEN / Unknown Venipuncture / Unknown 06/30/2024 6:09 PM EDT 06/30/2024 6:18 PM EDT Triston Godinez MD CHEMISTRY ORDERABLES [facility] [place] [address] * (ABNORMAL) Basic Metabolic Panel (06/30/2024 6:09 PM EDT) Glucose 06/30/2024 8:08 PM [facility] Comment:Insufficient sample. Informed Alli Meyers at 20:07, 06.30.2024. Blood Urea Nitrogen 10 10 - 20 mg/dL 06/30/2024 8:08 PM [facility] Creatinine 0.98 0.80 - 1.50 mg/dL 06/30/2024 8:08 PM [facility] Sodium 140 135 - 145 mMol/L 06/30/2024 8:08 PM [facility] Potassium 4.2 3.5 - 5.0 mMol/L 06/30/2024 8:08 PM [facility] Chloride 105 98 - 107 mMol/L 06/30/2024 8:08 PM [facility] Carbon Dioxide 21(L) 22 - 31 mMol/L 06/30/2024 8:08 PM [facility] Anion Gap 14 5 - 15 mMol/L 06/30/2024 8:08 PM [facility] Calcium 06/30/2024 8:08 PM [facility] Comment:Insufficient sample. Informed Alli Meyers at 20:07, 06.30.2024. Est Glomerular Filtration Rate - Male 80 mL/min/1. 73 m?? 06/30/2024 8:08 PM [facility] Comment: This patient's estimated [...] Foundation Fasting Status Yes 06/30/2024 8:08 PM [facility] Blood VENOUS BLOOD SPECIMEN / Unknown Venipuncture / Unknown 06/30/2024 6:09 PM EDT 06/30/2024 6:18 PM EDT Triston Godinez MD CHEMISTRY ORDERABLES [facility] [place] [address] * Lipid Panel (Reflex Direct LDL) (06/30/2024 6:09 PM EDT) Cholesterol, Total 197 mg/dL 06/30/2024 6:51 PM EDT [facility] Comment: Desirable: < 200 mg/dL Borderline High: 200 - 239 mg/dL High: > or = 240 mg/dL Triglyceride 230 mg/dL 06/30/2024 6:51 PM EDT [facility] Comment: Normal: <150 mg/dL Borderline High: 150-199 mg/dL High: 200-499 mg/dL Very High: > or =500 mg/dL HDL Cholesterol 36 mg/dL 6:51 PM EDT [facility] Comment:Males: High Risk: <4 0 mg/dL LDL Cholesterol 120 mg/dL 6:51 PM EDT [facility] Comment: Desirable: <100 mg/dL Above Desirable: 100-129 mg/dL Borderline High: 130-159 mg/dL High: 160-189 mg/dL Very High: > or =190 mg/dL Note: LDL calculation updated to the NIH LDL formula as of 06/26/2024 Non-HDL Cholesterol 161 mg/dL 06/30/2024 6:51 PM EDT [facility] Comment: Desirable: <130 mg/dL Above Desirable: 130-159 mg/dL Borderline High: 160-189 mg/dL High: 190-219 mg/dL Very High: > or = 220 mg/dL Blood VENOUS BLOOD SPECIMEN / Unknown Venipuncture / Unknown 06/30/2024 6:09 PM EDT 06/30/2024 6:18 PM EDT Narrative [facility] - 06/30/2024 6:51 PM EDT [...] ACC/AHA Guidelines (most recently Brianne et al. [facility] 08/26/22): * For individuals with atherosclerotic [...] Godinez MD CHEMISTRY ORDERABLES Performing Organization Address City/[facility]/ZIP Co de Phone Number [facility] [place] [address] * (ABNORMAL) pro-Brain Natriuretic Peptide (06/30/2024 6:09 PM EDT) NT-proBNP 2,259(H) <=449 pg/mL 06/30/2024 6:51 PM EDT [facility] Blood VENOUS BLOOD SPECIMEN / Unknown Venipuncture / Unknown 06/30/2024 6:09 PM EDT 06/30/2024 6:18 PM EDT Triston Godinez MD CHEMISTRY ORDERABLES Performing Organization Address City/[facility]/ZIP Co de Phone Number [facility] [place] [address] * TSH (06/30/2024 6:09 PM EDT) Pathologist [facility] Thyroid Stimulating Hormone 2.80 0.27 - 4.20 mcIU/mL 06/30/2024 6:51 PM EDT [facility] Blood VENOUS BLOOD SPECIMEN / Unknown Venipuncture / Unknown 06/30/2024 6:09 PM EDT 06/30/2024 6:18 PM EDT Triston Godinez MD CHEMISTRY ORDERABLES Performing Organization Address City/[facility]/ZIP Co de Phone Number [facility] [place] [address] * Heparin (unfractionated) Level (06/30/2024 6:08 PM [...] ORDERABLE S [facility] [place] [address] * (ABNORMAL) CBC (with Diff) (06/30/2024 6:08 [...] 32.0 - 35.7 g/dL 06/30/2024 6:[facility] Platelet 79(L) 145 - 357 x10(3)/mc L 06/30/2024 6:36 PM [facility] Mean Platelet Volume 11.2 7.6 - 12.9 fL 06/30/2024 6:36 PM [facility] RDW Standard Deviation 48.4(H) 36.0 - 45.0 fL 06/30/2024 6:36 PM [facility] RDW coefficient of variation 13.0 11.4 - 13.8 % 06/30/2024 6:36 PM [facility] NRBC% auto 0.0 % 06/30/2024 6:36 PM [facility] NRBC Absolute 0.00 0.00 - 0.00 x10(3)/mc L 06/30/2024 6:36 PM [facility] Neutrophil % 71.2 % 06/30/2024 6:36 PM [facility] Neutrophil Absolute 4.59 1.70 - 6.10 x10(3)/mc L 06/30/2024 6:36 PM [facility] Lymph % 18.1 % 06/30/2024 6:36 PM [facility] Lymph Absolute 1.17 0.90 - 3.20 x10(3)/mc L 06/30/2024 6:36 [facility] Monocyte % 8.2 % 06/30/2024 6:36 PM [facility] Monocyte Absolute 0.53 0.30 - 0.90 x10(3)/mc L 06/30/2024 6:36 PM [facility] Eos % 1.7 % 06/30/2024 6:36 PM [facility] Eos Absolute 0.11 0.00 - 0.40 x10(3)/mc L 06/30/2024 6:36 PM [facility] Basophil % 0.6 % [...] ORDERABLE S [facility] [place] [address] * (ABNORMAL) Hemoglobin A1c (06/30/2024 6:08 PM [...] red blood cell turnover may not be passenger representative of glycemic control. Reference Interval: 4.3 [...] into estimated average glucose values. ??Diabetes Care 2008:31(8):4146-1595. Additional resources are available on the ADA website (diabetes.org). Triston Godinez MD CHEMISTRY ORDERABLES Performing Organization Address [facility] Co de Phone Number [facility] [place] [address] * POC, GLUCOSE (06/30/2024 5:58 PM EDT) [facility] Glucometer, POC 148 65 - 199 mg/dL 06/30/2024 5:58 PM EDT [facility] Comment:Supplemental ranges: <140 mg/dL before meals <180 mg/dL all other times of the day. Blood CAPILLARY BLOOD / Unknown 06/30/2024 5:58 PM EDT 06/30/2024 5:58 PM EDT Triston Godinez MD POINT OF CARE TEST O RDERABLES Performing Organization Address [facility] Co de Phone Number [facility] [place] [address] * EKG 12 Lead (06/30/2024 5:23 PM EDT) Ventricular rate 73 BPM MUSE SYSTEM Atrial Rate 300 BPM MUSE SYSTEM QRS Duration 72 ms MUSE SYSTEM Q-T Interval 404 ms MUSE SYSTEM QTC Calculated (Bezet) 445 ms MUSE SYSTEM Calculated P [place] 71 degrees MUSE SYSTEM Calculated R [place] 65 degrees MUSE SYSTEM Calculated T [place] 30 degrees MUSE SYSTEM INTERPRETATION Normal sinus [...] NSTEMI (non-ST elevation myocardial infarction) Exam Location: [facility]. ? Conclusions -Left ventricular systolic function is moderately reduced. The left ventricular ejection fraction is 36% by Dowd's biplane. The anterolateral and inferolateral barahona are akinetic. The anterior wall is hypokinetic. -Right ventricle is mildly dilated. Systolic function is normal. -No significant valve disease. -See report for additional findings. No prior study is available. Procedure Complete-[id number]. Image enhancement Optison was used for left [...] NSTEMI (non-ST elevation myocardial infarction) Exam Location: [facility]. Conclusions -Left ventricular systolic function is moderately reduced. The leftventricular ejection fraction is 36% by Dowd's biplane. The anterolateral andinferolateral bar[place]ona are akinetic. The anterior wall is hypokinetic. -Right ventricle is mildly dilated. Systolic function is normal. -No significant valve disease. -See report for additional findings. No prior study is available. Procedure Complete-[id number]. Image enhancement Optison was used for left [...] (Bezet) 460 ms MUSE SYSTEM Calculated P [place] 69 degrees MUSE SYSTEM Calculated R [place] 78 degrees MUSE SYSTEM Calculated T [place] 39 degrees MUSE SYSTEM INTERPRETATION Sinus rhythm [...] RN)1500 (Due - Provider: Iram De Jesus [facility]) tamsulosin (Flomax) capsule 0.8 mg 0.8 [...] Routine documented in this encounter Care Teams Director Of Religious Activities Relationship Specialty Start Date End Date Deacon Watters APRN [address] [place] [address] [address] [place] [address] PCP - General Family Medicine 02/17/22 documented as of this encounter
--- OUTSIDE RECORDS SUMMARY | 2024-07-20 13:35 | XMS_ITS | Encounter Summary ---
Author Organization [facility] [place] [address] Care Team Providers Care Tank Car Mechanic Name Role Phone Deacon Watters Priscilla LUCERO Primary Care Provider +1- [phone] Reason for Visit * Reason Comments Medication Refill Encounter Details Date Type Department Care Team (Late st Contact Info) Description 01/11/2024 [place] [address] Dion Barlow MD [facility] [place] [address] Social History Tobacco Use Types Packs/Day Years [...] 9:00 AM EDT Office [place] [phone] Dion Barlow MD [facility] [place] [address] 09/01/2024 9:40 AM EDT Office Visit Cardiology at [address] [place] [address] Franky Shaver MD [facility] [place] [place] [address] 09/01/2024 11:20 AM EDT Office Visit Dermatology at [facility] [address] [place] [phone] Gómez Mercer MD [facility] DR EDDIE SANCHE[place] [address] 09/21/2024 2:45 PM EDT Office Visit [place] [phone] Trung Hoyos MD [facility] [place] [address] documented as of this encounter Visit Diagnoses Not on filedocumented in this encounter Care Teams Tank Car Mechanic Relationship Specialty Start Date End Date Deacon Watters, DIRECTOR INVESTMENT BANKING [address] [place] [address] PCP - General Family Medicine 02/17/22 documented as of this encounter
--- OUTSIDE RECORDS SUMMARY | 2024-07-20 13:35 | XMS_ITS | Encounter Summary ---
Author Organization [facility]ly [facility] [place] [address] Care Team Providers Care Rotary Bar Operator Name Role Phone Deacon Watters Priscilla LUCERO Primary Care Provider +1- [phone] Reason for Visit * Reason Comments Medication Refill Encounter Details Date Type Department Care Team (Late st Contact Info) Description 02/19/2024 [place] [address] Dion Barlow MD [facility] [place] [address] Social History Tobacco Use Types Packs/Day Years [...] 9:00 AM EDT Office [place] [address] Dion Barlow MD [facility] [place] [address] 09/01/2024 9:40 AM EDT Office Visit Cardiology at [address] [place] [address] Franky Shaver MD [facility] [place] [address] 09/01/2024 11:20 AM EDT Office Visit Dermatology at [facility] [address] [place] [phone] Gómez Mercer MD [facility] DR [place] [address] 09/21/2024 2:45 PM EDT Office Visit Pain and Spine Center at [facility] [place] [address] Trung Hoyos MD [facility] [place] [address] documented as of this encounter Visit Diagnoses Not on filedocumented in this encounter Care Teams Rotary Bar Operator Relationship Specialty Start Date End Date Deacon Watters, JAZMINE [address] [facility] [address] [place] [address] PCP - General Family Medicine 02/17/22 documented as of this encounter
--- OUTSIDE RECORDS SUMMARY | 2024-07-20 13:35 | XMS_ITS | Encounter Summary ---
[place] [address] Care Team Providers Care Fisher Pot Name Role Phone Deacon Watters APRN Primary Care Provider +1- [phone] Encounter Details Date Type Department Care Team (Latest Contact Info) Description 06/06/2024 12:56 PM EDT - 06/06/2024 11:59 PM EDT Hospital [place] [address] Left sided colitis without complications Discharge Disposition: [...] AM EDT Office Visit [place] [address] Dion Barlow MD [facility] [place] [address] 09/01/2024 9:40 AM EDT Office Visit Cardiology at [address] [phone] Franky Shaver MD [facility] [place] [address] 09/01/2024 11:20 AM EDT Office Visit Dermatology at [place] [address] [place] [phone] Gómez Mercer MD [facility] [place] [address] 09/21/2024 2:45 PM EDT Office Visit [facility] [place] [phone] Trung Hoyos MD [facility] [place] [address] documented as of this encounter Procedures Procedure Name Priority Date/Time Associated Diagnosis Comments HC C. DIFF QUIK CHEK ANTIGEN Routine 06/06/2024 5:30 PM EDT Left sided colitis without complications CALPROTECTIN,STOOL Routine 06/06/2024 5: 30 PM EDT Left sided colitis without complications documented in this encounter Results * (ABNORMAL) Calprotectin, Stool (06/06/2024 5:30 PM EDT) Calprotectin, Stool 112(H) <=79 mcg/g [facility] Comment: Calprotectin Concentration ? Interpretation ? < 80 mcg/g ?Normal ? 80 ? 160 mcg/g ?Borderline ? >160 mcg/g ?Elevated Stool 06/06/2024 5:30 PM EDT 06/07/2024 1:07 PM EDT Narrative Resulting Agency Comment Spec In Lab Marcelle Weinberg HYDRAULIC MINER BLASTING BODY FLUIDS AND S TOOLS ORDERABLES Performing Organization Address [facility] Co de Phone Number [facility] [place] [address] * C. Difficile Screen (06/06/2024 5:30 PM EDT) C Diff Interp Negative Negative [facility] Comment: Ag/Tox Neg C. diff?? Negative Clostridium difficile is not present in the specimen. If patient is having diarrhea suspected to be from an infectious cause, then Soap & Water Contact Precautions are still required. Stool 06/06/2024 5:30 PM EDT 06/07/2024 1:32 PM EDT Narrative Resulting Agency Comment Spec In Lab Marcelle Weinberg HYDRAULIC MINER BLASTING MICROBIOLOGY - GE NERAL ORDERABLES Performing Organization Address [facility] Co de Phone Number [facility] [place] [address] documented in this encounter Visit Diagnoses Diagnosis Left sided colitis without complications Left sided ulcerative (chronic) colitis documented in this encounter Care Teams Fisher Pot Relationship Specialty Start Date End Date Deacon Watters APRN [address] [place], [place] [address] [place] [address] PCP - General Family Medicine 02/17/22 documented as of this encounter
--- OUTSIDE RECORDS SUMMARY | 2024-07-20 13:35 | XMS_ITS | Encounter Summary ---
Author Organization [facility] Address [facility] [address] Care Team Providers Care Development Technical Lead Name Role Phone DuongDeacon Priscilla LUCERO Primary Care Provider +1- [phone] Encounter Details Date Type Department Care Team [...] 9:00 AM EDT Office [place] [address] Dion Barlow MD [facility] [place] [address] 09/01/2024 9:40 AM EDT Office Visit Cardiology at [address] [phone] Franky Shaver MD [facility] [place] [address] 09/01/2024 11:20 AM EDT Office Visit Dermatology at [facility] [address] [place] [address] Gómez Mercer MD [facility] DR [place] [address] 09/21/2024 2:45 PM EDT Office Visit Pain and Spine Center at [facility] [place] [address] Trung Hoyos MD [facility] [place] [address] documented as of this encounter Visit Diagnoses Not on filedocumented in this encounter Care Teams Development Technical Lead Relationship Specialty Start Date End Date Deacon Watters, JAZMINE [address] [place] [address] PCP - General Family Medicine 02/17/22 documented as of this encounter
--- OUTSIDE RECORDS SUMMARY | 2024-07-20 13:35 | XMS_ITS | Encounter Summary ---
Author Organization [facility] Address [facility] [place] [address] Care Team Providers Care Rn Intensive Care Unit Name Role Phone DuongDeacon Priscilla LUCERO Primary Care Provider +1- [phone] Encounter Details Date Type Department Care Team [...] 9:00 AM EDT Office [place] [address] Dion Barlow MD [facility] [place] [address] 09/01/2024 9:40 AM EDT Office Visit Cardiology at [address] [phone] Franky Shaver MD [facility] [place] [address] 09/01/2024 11:20 AM EDT Office Visit Dermatology at [facility] [address] [place] [address] Gómez Mercer MD [facility] DR [place] [address] 09/21/2024 2:45 PM EDT Office Visit [facility] at [address] [place] [address] Trung Hoyos MD [facility] [place] [address] documented as of this encounter Visit Diagnoses Not on filedocumented in this encounter Care Teams Rn Intensive Care Unit Relationship Specialty Start Date End Date Deacon Watters, JAZMINE [address] [place] [address] PCP - General Family Medicine 02/17/22 documented as of this encounter
--- OUTSIDE RECORDS SUMMARY | 2024-07-20 13:35 | XMS_ITS | Encounter Summary ---
Author Organization [facility] Address [facility] [place] [address] Care Team Providers Care Vitamin Manager Name Role Phone DuongVeliakip Wells APRN Primary Care Provider +1- [phone] Encounter Details Date Type Department Care Team (Late st Contact Info) Description 03/02/2024 2:45 PM EDT Office Visit Dermatology at [facility] [address] [place] [address] Matti Bland MD [facility] [address] [place] [address] Visit for suture removal Social History Tobacco [...] 2. Follow up with referring provider or production cost estimator for skin exams. 3. Follow up with Dr. Keller: as needed Note initiated and signed by Inge Forte LPN documented in this encounter Plan of Treatment Upcoming Encounters Date Type Department Care Team (Late st Contact Info) Description 08/15/2024 9:00 AM EDT Office [place] [address] Dion Barlow MD [facility] [place] [address] 09/01/2024 9:40 AM EDT Office Visit Cardiology at [address] [phone] Franky Shaver MD [facility] [place] [address] 09/01/2024 11:20 AM EDT Office Visit Dermatology at [facility] [address] [place] [address] Gómez Mercer MD [facility] DR [place] [address] 09/21/2024 2:45 PM EDT Office Visit [facility] [place] [address] Trung Hoyos MD [facility] [place] [address] documented as of this encounter Visit Diagnoses Diagnosis Visit for suture removal Encounter for removal of sutures documented in this encounter Care Teams Vitamin Manager Relationship Specialty Start Date End Date Deacon Watters, JAZMINE [address] [place] [address] PCP - General Family Medicine 02/17/22 documented as of this encounter
--- OUTSIDE RECORDS SUMMARY | 2024-07-20 13:35 | XMS_ITS | Encounter Summary ---
Author Organization [facility] [place] [address] Care Team Providers Care Cigar Bander Hand Name Role Phone Deacon Watters APRN Primary Care Provider +1- [phone] Encounter Details Date Type Department Care Team (Late st Contact Info) Description 06/29/2024 7:25 PM EDT Ancillary Procedure [place] [phone] Deacon Watters APRN [address] [place] [address] Social History Tobacco Use Types Packs/Day Years [...] EDT Office [place] [phone] Dion Barlow MD [facility] [place] [address] 09/01/2024 9:40 AM EDT Office Visit Cardiology at [address] [place] [address] Franky Shaver MD [facility] [place] [address] 09/01/2024 11:20 AM EDT Office Visit Dermatology at [facility] [address] [place] [address] Gómez Mercer MD [facility] [place] [address] 09/21/2024 2:45 PM EDT Office Visit Pain and Sp[facility] Center at [facility] [address] Trung Hoyos MD [facility] [place] [address] documented as of this encounter Procedures Procedure Name Priority Date/Time Associated Diagnosis Comments FILM LIBRARY STORAGE ONLY DX CHEST Routine 06/29/2024 7:22 PM EDT documented in this encounter Results * Film Library- Storage Only DX Chest (06/29/2024 7:22 PM EDT) Narrative [facility] - 06/29/2024 7:22 PM EDT This exam is auto-finalizing. It's purpose is for storage only. Deacon Watters APRN IMG FILM LIBRARY O RDERABLES [place], [place] documented in this encounter Visit Diagnoses Not on filedocumented in this encounter Care Teams Cigar Bander Hand Relationship Specialty Start Date End Date Deacon Watters APRN [address] [place] [address] PCP - General Family Medicine 02/17/22 documented as of this encounter
--- OUTSIDE RECORDS SUMMARY | 2024-07-20 13:35 | XMS_ITS | Encounter Summary ---
Author Organization [facility] Address [facility] [place] [address] Care Team Providers Care Intranet Developer Name Role Phone Duong Deacon Wells APRN Primary Care Provider +1- [phone] Reason for Visit * Reason Comments Basal Cell Carcinoma Encounter Details Date Type Department Care Team (Latest Contact Info) Description 02/17/2024 7:45 AM EDT Clinical Support Dermatology at [facility] [address] [place] [address] Kingsley Finn MD [facility] [place] [address] Basal cell carcinoma of right side of [...] EDT Office [place] [address] Dion Barlow MD [facility] [place] [address] 09/01/2024 9:40 AM EDT Office Visit Cardiology at [address] [address] Franky Shaver MD [facility] [place] [address] 09/01/2024 11:20 AM EDT Office Visit Dermatology at [facility] [address] [place] [address] Gómez Mercer MD [facility] [address] [place] [address] 09/21/2024 2:45 PM EDT Office Visit Pain and Spine Center at [facility] [place] [address] Trung Hoyos MD [facility] [place] [address] documented as of this encounter Visit Diagnoses Diagnosis Basal cell carcinoma of right side of nose Basal cell carcinoma of skin of other and unspecified parts of face documented in this encounter Care Teams Intranet Developer Relationship Specialty Start Date End Date Deacon Watters APRN [address] [place] [address] PCP - General Family Medicine 02/17/22 documented as of this encounter
--- OUTSIDE RECORDS SUMMARY | 2024-07-20 13:35 | XMS_ITS | Encounter Summary ---
Author Organization [facility] [place] [address] Care Team Providers Care Commercial Drafter Name Role Phone Deacon Watters APRN Primary Care Provider +1- [phone] Reason for Visit * Reason Comments Neck Pain * Consultation (Routine) - Closed Specialty Diagnoses / Procedures Referred By Contac t Referred To Contact Pain and Spine Center Diagnoses Spondylosis of cervical region without myelopathy or radiculopathy Santiago Morales PA [facility] [place] [address] [facility] [place] [address] Referral ID Status Reason Start Date Expiration Date V isits Requested Visits Authorized [id number] Closed Pain Consult 04/06/2024 04/06/2025 1 1 Encounter Details Date Type Department Care Team (Latest Contact Info) Description 06/22/2024 8:00 AM EDT Office Visit [place] [address] Trung Hoyos MD [facility] [place] [address] Radiculopathy of cervical region (Primary Dx) Social History Tobacco Use Types Packs/Day Years Used Date Smoking Tobacco: Former Cigarettes 4 30 1 12/01/1961 - 10/01/1992 Smokeless Tobacco: Former Chew Comments:Denies vaping Alcohol Use Standard Drinks/Week Comments Yes 0 (1 standard drink = 0.6 oz pur e alcohol) twice a year [facility] Utilities Answer Date Recorded In the [...] time in the past 12 m [facility], were you homeless or living [...] from the original note were not included. [facility] Initial Consultation Note DOS: 06/22/24 : 1950 Brian Rodriguez is a 73 y.o. year old male who presents to the pain clinic today at the referral of: Santiago Morales PA [facility] [place] [address] for consideration of treatment for his pain CC: Left-sided neck pain HPI: Brian Rodriguez prefers to be called Eduardo. He is alone today for this visit. He describes left-sided neck pain associated with some left hand weakness. 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 He indicated that he once fell over 50 feet onto his head holding his hard hat, injuring his neck, and crushing his right hand. He was taken to [facility] at that time. 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 Of note he helped build [facility] in the late or early He indicated he had a cortisone injection in his right shoulder which was helpful once. He had a possible lumbar epidural steroid injection at [facility] at least 25 years ago that helped. [...] 3.66) performed by Dion Osullivan MD at [facility] ENDOSCOPY PRO COLONOSCOPY, BIOPSY N/A 02/22/2019 COLONOSCOPY FLEXIBLE, WITH BX (WRVU 3.66) performed by Dion Osullivan MD at [facility] ENDOSCOPY PRO COLONOSCOPY, BIOPSY N/A 03/28/2022 COLONOSCOPY FLEXIBLE, WITH BX (WRVU 3.66) performed by Mona Turner MD at [facility] ENDOSCOPY PRO COLONOSCOPY, BIOPSY N/A 01/20/2024 COLONOSCOPY FLEXIBLE, WITH BX (WRVU 3.56) performed by Anthony Hamlin MD at [facility] ENDOSCOPY PRO COLONOSCOPY, DIAGNOSTIC 11/27/2011 COLONOSCOPY, DIAGNOSTIC performed by Dion OSULLIVAN at [facility] ENDOSCOPY PRO COLONOSCOPY, DIAGNOSTIC 07/13/2014 COLONOSCOPY, DIAGNOSTIC performed by Dion Osullivan MD at [facility] ENDOSCOPY PRO COLONOSCOPY, REMV LESN, SNARE N/A 02/22/2019 COLONOSCOPY, POLYPECTOMY, REMOVAL LESION BY SNARE (WRVU 4.67) performed by Dion Osullivan MD at [facility] ENDOSCOPY PRO COLONOSCOPY, REMV LESN, SNARE N/A 02/26/2021 COLONOSCOPY, POLYPECTOMY, REMOVAL LESION BY SNARE (WRVU 4.67) performed by Dion Osullivan MD at [facility] ENDOSCOPY PRO SIGMOIDOSCOPY, DIAGNOSTIC 03/16/2012 FLEXIBLE SIGMOIDOSCOPY performed by YUDI MALLOY at [facility] ENDOSCOPY PRO UPPER GI ENDOSCOPY, DIAGNOSTIC N/A 04/28/2019 EGD, UPPER GI ENDOSCOPY performed by Iza Coates MD at [facility] ENDOSCOPY UPPER GI ENDOSCOPY, EXAM 10/01/2012 UPPER GI ENDOSCOPY performed by Dion OSULLIVAN at [facility] ENDOSCOPY FAMILY HISTORY: No family history [...] of Motion -limited Special tests - Neurologic: centerless grinder set up operator - grossly intact Reflexes - 2+ and [...] the potential roles for physical therapy, the [facility] functional uatsdin program, and the [facility] active pain care service [employer]. He expressed interest in the above and wished to consider prior to enrolling. Ross may follow-up in 2 - 3 months or on an as needed basis Thank you for allowing us the opportunity to participate in Brian's care. I spent 45 minutes in direct [id number] time, with 40 minutes counseling him regarding treatment options and addressing specific questions. Thank you for referring him to our clinic. Trung Hoyos MD, MS Duplicate Maker of Anesthesiology [facility] of Medicine [address] [address] / [facility] CC: Santiago Morales PA [facility] PAIN MANAGEMENT [place] [id number] documented in this encounter Plan of Treatment Upcoming Encounters Date Type Department Care Team (Late st Contact Info) Description 08/15/2024 9:00 AM EDT Office [place] [address] Dion Osullivan MD [facility] [place] [address] 09/01/2024 9:40 AM EDT Office Visit Cardiology at [address] [phone] Franky Shaver MD [facility] [place] [address] 09/01/2024 11:20 AM EDT Office Visit Dermatology at [facility] [address] [place] [address] Gómez Mercer MD [facility] DR EDDIE [place] [address] 09/21/2024 2:45 PM EDT Office Visit [place] [address] Trung Hoyos MD [facility] [place] [address] Scheduled Referrals Name Type Priority Associated Diagnoses Orde r Schedule Referral to Pain and Spine Center (Internal only) Outpatient Referral Routine Spondylosis of cervical region without myelopathy or radiculopathy Ordered: 04/06/2024 documented as of this encounter Visit Diagnoses Diagnosis Radiculopathy of cervical region- Primary Brachial neuritis or radiculitis nos documented in this encounter Care Teams Commercial Drafter Relationship Specialty Start Date End Date Deacon Watters, VOCATIONAL REHABILITATION CONSULTANT [address] [place] [address] PCP - General Family Medicine 02/17/22 documented as of this encounter
--- OUTSIDE RECORDS SUMMARY | 2024-07-20 13:35 | XMS_ITS | Encounter Summary ---
Author Organization [facility] Address [facility] [place] [address] Care Team Providers Care Supervisor Special Services Name Role Phone Deacon Watters APRN Primary Care Provider +1- [phone] Encounter Details Date Type Department Care Team (Late st Contact Info) Description 06/29/2024 External [place] [address] Social History Tobacco Use Types Packs/Day Years Used Date Smoking Tobacco: Former Cigarettes 4 30 1 12/01/1961 - 10/01/1992 Smokeless Tobacco: Former Chew Comments:Denies vaping Alcohol Use Standard Drinks/Week Comments Yes 0 (1 standard drink = 0.6 oz pur e alcohol) twice a year [facility] Utilities Answer Date Recorded In [...] 9:00 AM EDT Office [place] [address] Dion Barlow MD [facility] [place] [address] 09/01/2024 9:40 AM EDT Office Visit Cardiology at [address] [phone] Franky Shaver MD [facility] [place] [address] 09/01/2024 11:20 AM EDT Office Visit Dermatology at [facility] [address] [place] [address] Gómez Mercer MD [facility] DR [place] [address] 09/21/2024 2:45 PM EDT Office Visit [place] [address] Trung Hoyos MD [facility] [place] [address] documented as of this encounter Procedures Procedure Name Priority Date/Time Associated Diagnosis Comments MISC EXTERNAL CARDIOLOGY RESULT Routine 06/29/2024 4:33 PM EDT documented in this encounter Results * External Cardiology Result (06/29/2024 4:33 PM EDT) Anatomical Region Laterality Modality Other Historical Provider EXTERNAL CARDIOLO GY RESULT documented in this encounter Visit Diagnoses Not on filedocumented in this encounter Care Teams Supervisor Special Services Relationship Specialty Start Date End Date Deacon Watters, JAZMINE [address] [place] [address] PCP - General Family Medicine 02/17/22 documented as of this encounter
--- OUTSIDE RECORDS SUMMARY | 2024-07-20 13:35 | XMS_ITS | Encounter Summary ---
Author Organization [facility] Address [facility] [place] [address] Care Team Providers Care Programming Development Project Manager Name Role Phone DuongDeacon Priscilla LUCERO Primary Care Provider +1- [phone] Encounter Details Date Type Department Care Team [...] 9:00 AM EDT Office [place] [address] Dion Barlow MD [facility] [place] [address] 09/01/2024 9:40 AM EDT Office Visit Cardiology at [address] [phone] Franky Shaver MD [facility] [place] [address] 09/01/2024 11:20 AM EDT Office Visit Dermatology at [facility] [address] [place] [address] Gómez Mercer MD [facility] DR EDD[place] [address] 09/21/2024 2:45 PM EDT Office Visit Pain and Spine Center at [facility] [place] [address] Trung Hoyos MD [facility] [place] [address] documented as of this encounter Visit Diagnoses Not on filedocumented in this encounter Care Teams Programming Development Project Manager Relationship Specialty Start Date End Date Deacon Watters, JAZMINE [address] [place] [address] PCP - General Family Medicine 02/17/22 documented as of this encounter
--- OUTSIDE RECORDS SUMMARY | 2024-07-20 13:35 | XMS_ITS | Encounter Summary ---
Author Organization [facility] Address [facility] [place] [address] Care Team Providers Care Wire Straightening Machine Operator Name Role Phone DuongDeacon Priscilla LUCERO Primary Care Provider +1- [phone] Encounter Details Date Type Department Care Team [...] AM EDT Office Visit [place] [address] Dion Barlow MD [facility] [place] [address] 09/01/2024 9:40 AM EDT Office Visit Cardiology at [address] [phone] Franky Shaver MD [facility] [place] [address] 09/01/2024 11:20 AM EDT Office Visit Dermatology at [facility] [address] [place] [address] Gómez Mercer MD [facility] DR [place] [address] 09/21/2024 2:45 PM EDT Office Visit Pain and Spine Center at [facility] [place] [address] Trung Hoyos MD [facility] [place] [address] documented as of this encounter Visit Diagnoses Not on filedocumented in this encounter Care Teams Wire Straightening Machine Operator Relationship Specialty Start Date End Date Deacon Watters, JAZMINE [address] [place] [address] PCP - General Family Medicine 02/17/22 documented as of this encounter
--- OUTSIDE RECORDS SUMMARY | 2024-07-20 13:35 | XMS_ITS | Encounter Summary ---
Author Organization [facility] Address [facility] [place] [address] Care Team Providers Care Claims Support Specialist Name Role Phone Deacon Watters APRN Primary Care Provider +1- [phone] Reason for Referral * Physical Therapy (Routine) - Closed Specialty Diagnoses / Procedures Referred By Contac t Referred To Contact Physical Therapy Diagnoses Spondylosis of cervical region without myelopathy or radiculopathy Santiago Morales PA [facility] [place] [address] Physical Therapy, [address] [place] [address] Referral ID Status Reason Start Date Expiration Date V isits Requested Visits Authorized [id number] Closed Evaluate and Treat 01/07/2024 07/05/2024 12 12 Reason for Visit * Reason Comments Neck Pain chronic neck pain/MR I 10/27/23 in [facility] * Consultation (Routine) - Closed Specialty Diagnoses / Procedures Referred By Contac t Referred To Contact Pain and Spine Center Diagnoses Cervicalgia Other chronic pain chronic neck pain/MRI 10/27/23 @ [facility] Deacon Watters APRN [address] [place] [address] [facility] [place] [address] Referral ID Status Reason Start Date Expiration Date V isits Requested Visits Authorized [id number] Closed Consult, Test & Treat PCP Updated and/or Approved 11/11/2023 05/10/2024 1 1 Encounter Details Date Type Department Care Team (Latest Contact Info) Description 01/07/2024 8:45 AM EST Office Visit [place] [address] Santiago Morales PA [facility] [place] [address] Spondylosis of cervical region without myelopathy or [...] the Center for Pain and Spine @ [facility] for evaluation. Chief Complaint: Neck pain HPI: [...] light touch. Motor exam shows 4/5 left mortuary beautician strength; otherwise 5/5 throughout. Negativehoffman bilaterally. Imaging: [...] neck pain. He has some left hand mortuary beautician weakness but otherwise is neuro intact. Imaging [...] AM EDT Office [place] [address] Dion Barlow MD [facility] [place] [address] 09/01/2024 9:40 AM EDT Office Visit Cardiology at [address] [address] Franky Shaver MD [facility] [place] [address] 09/01/2024 11:20 AM EDT Office Visit Dermatology at [address] [place] [address] Gómez Mercer MD [facility] [place] [address] 09/21/2024 2:45 PM EDT Office Visit [place] [address] Trung Hoyos MD [facility] [place] [address] Scheduled Referrals Name Type Priority Associated Diagnoses Orde r Schedule Referral to Physical Therapy Outpatient Referral Routine Spondylosis of cervical region without myelopathy or radiculopathy Ordered: 01/07/2024 documented as of this encounter Visit Diagnoses Diagnosis Spondylosis of cervical region without myelopathy or radiculopathy Cervical spondylosis without myelopathy documented in this encounter Care Teams Claims Support Specialist Relationship Specialty Start Date End Date Deacon Watters APRN [address] [place] [address] [address] [place] [address] PCP - General Family Medicine 02/17/22 documented as of this encounter
--- OUTSIDE RECORDS SUMMARY | 2024-07-20 13:35 | XMS_ITS | Encounter Summary ---
Author Organization [facility] Address [facility] [place] [address] Care Team Providers Care Riddler Operator Name Role Phone DuongDeacon Priscilla LUCERO Primary Care Provider +1- [phone] Encounter Details Date Type Department Care Team [...] 9:00 AM EDT Office [place] [address] Dion Barlow MD [facility] [place] [address] 09/01/2024 9:40 AM EDT Office Visit Cardiology at [address] [phone] Franky Shaver MD [facility] [place] [address] 09/01/2024 11:20 AM EDT Office Visit Dermatology at [facility] [address] [place] [address] Gómez Mercer MD [facility] DR ED[place] [address] 09/21/2024 2:45 PM EDT Office Visit Pain and Spine Center at [facility] [place] [address] Trung Hoyos MD [facility] [place] [address] documented as of this encounter Visit Diagnoses Not on filedocumented in this encounter Care Teams Riddler Operator Relationship Specialty Start Date End Date Deacon Watters, JAZMINE [address] [place] [address] PCP - General Family Medicine 02/17/22 documented as of this encounter
--- OUTSIDE RECORDS SUMMARY | 2024-07-20 13:35 | XMS_ITS | Encounter Summary ---
Author Organization [facility] Lina [facility] [place] [address] Care Team Providers Care Field Applications Specialist Name Role Phone Deacon Watters APRN Primary Care Provider +1- [phone] Reason for Referral * Consultation (Routine) - Closed Specialty Diagnoses / Procedures Referred By Contac t Referred To Contact Pain and Spine Center Diagnoses Spondylosis of cervical region without myelopathy or radiculopathy Santiago Morales PA [facility] [place] [address] [facility] [place] [place] [address] Referral ID Status Reason Start Date Expiration Date V isits Requested Visits Authorized [id number] Closed Pain Consult 04/06/2024 04/06/2025 1 1 Reason for Visit * Reason Comments Follow-up Pain Back of neck- right side of neck is worse Encounter Details Date Type Department Care Team (Latest Contact Info) Description 04/06/2024 8:30 AM EDT Office Visit [place] [address] Santiago Morales PA [facility] [place] [address] Spondylosis of cervical region without [...] for Pain and Spine @ [facility] for evaluation. Chief Complaint: Neck pain. Intermittent [...] strength though with slight weakness with left pricing/signage team member compared to thatof the right. Imaging: No [...] 9:00 AM EDT Office [place] [address] Dion Barlow MD [facility] [address] 09/01/2024 9:40 AM EDT Office Visit Cardiology at [address] [phone] Franky Shaver MD [facility] [place] [address] 09/01/2024 11:20 AM EDT Office Visit Dermatology at [facility] [address] [place] [phone] Gómez Mercer MD [facility] DR EDD[place] [address] 09/21/2024 2:45 PM EDT Office Visit [place] [address] Trung Hoyos MD [facility] [place] [address] Scheduled Referrals Name Type Priority Associated Diagnoses Orde r Schedule Referral to Pain and Spine Center (Internal only) Outpatient Referral Routine Spondylosis of cervical region without myelopathy or radiculopathy Ordered: 04/06/2024 documented as of this encounter Visit Diagnoses Diagnosis Spondylosis of cervical region without myelopathy or radiculopathy Cervical spondylosis without myelopathy documented in this encounter Care Teams Field Applications Specialist Relationship Specialty Start Date End Date Deacon Watters, PODIATRIC FOOT AND ANKLE SPECIALIST [address] [place] [address] PCP - General Family Medicine 02/17/22 documented as of this encounter
--- OUTSIDE RECORDS SUMMARY | 2024-07-20 13:35 | XMS_ITS | Encounter Summary ---
Author Organization [facility] Address [facility] [place] [address] Care Team Providers Care Billboard Poster Name Role Phone DuongDeacon Priscilla LUCERO Primary Care Provider +1- [phone] Encounter Details Date Type Department Care Team [...] 9:00 AM EDT Office [place] [address] Dion Barlow MD [facility] [place] [address] 09/01/2024 9:40 AM EDT Office Visit Cardiology at [address] [phone] Franky Shaver MD [facility] [place] [address] 09/01/2024 11:20 AM EDT Office Visit Dermatology at [facility] [address] [place] [address] Gómez Mercer MD [facility] DR [place] [address] 09/21/2024 2:45 PM EDT Office Visit Pain and Spine Center at [facility] [place] [address] Trung Hoyos MD [facility] [place] [address] documented as of this encounter Visit Diagnoses Not on filedocumented in this encounter Care Teams Billboard Poster Relationship Specialty Start Date End Date Deacon Watters, JAZMINE [address] [place] [address] PCP - General Family Medicine 02/17/22 documented as of this encounter
--- OUTSIDE RECORDS SUMMARY | 2024-07-20 13:35 | XMS_ITS | Encounter Summary ---
Author Organization [facility] Address [facility] [place] [address] Care Team Providers Care Interior Decorator Paperhanging Name Role Phone Deacon Watters APRN Primary Care Provider +1- [phone] Encounter Details Date Type Department Care Team (Latest Contact Info) Description 06/06/2024 8:00 AM EDT Office [place] [address] Marcelle Weinberg PURIFICATION SUPERVISOR [facility] [place] [address] Left sided colitis without complications Social History [...] for cramping - Repeat routine labs today( [facility]) and submit stool calprotectin ( [facility]). - Follow up with Dermatology regarding [...] colitis Overview Note: Colonoscopy 04/08/10 (Dr. Gomes [facility]) - inflammation only within the rectum and sigmoid; extent of the exam was to the hepatic flexure; biopsies proximal to the sigmoid nl Repeat exam 11/27/11 ([facility]): mildly active colitis in [...] ascending colon. Several HPs and one TA. [place] 03/2022 - [place] 1 limited to rectosigmoid, diverticulosis. No dysplasia TREATMENT: cortenemas, Asacol, Rowasa, prednisone, and imodium [place] 12/2023- Ileum was normal. [place] 1 inflammation [...] - 199 mg/dL Final COLONOSCOPY 01/20/2024 Final Value:[facility] Endoscopy Procedure Date: 01/20/2024 10:01 AM Patient Name: Brian Rodriguez Date of : 1950 Age: 73 Order #: [id number] Instrument Name: [id number] Procedure: Colonoscopy Indications: Follow-up of left-sided chronic [...] by the physician, the nurse and the a/c technician in the pre-procedure area in the [...] 10:01 AM Surgical Pathology Report 01/20/2024 Final Value:[id number] Location: 4T; EA12; A The signing pathologist [...] MD Verified: 01/29/2024 12:04 Pathologist Performed at: -[facility] Dept. of Pathology, [facility] [address], [place] [address] Science Specialist: Joana Soler MD, AP, [place] Certificate: [id number] SPECIMEN(S) SUBMITTED A - right colon, biopsy [...] for cramping - Repeat routine labs today( [facility]) and submit stool calprotectin ( [facility]). - Follow up with Dermatology regarding skin rash on your groin. - Follow up with Dr. Barlow in 4 months Please contact me if there are any further questions regarding the care of this patient. Shan Weinberg APRN [facility] Section of Gastroenterology and Hepatology [address] [address] documented in this encounter Plan of Treatment Upcoming Encounters Date Type Department Care Team (Late st Contact Info) Description 08/15/2024 9:00 AM EDT Office [place] [address] Dion Barlow MD [facility] [place] [address] 09/01/2024 9:40 AM EDT Office Visit Cardiology at [address] [place] [address] Franky Shaver MD [facility] [place] [address] 09/01/2024 11:20 AM EDT Office Visit Dermatology at [facility] [address] [place] [address] Gómez Mercer MD [facility] DR EDD[place] [address] 09/21/2024 2:45 PM EDT Office Visit [place] [address] Trung Hoyos MD [facility] [place] [address] documented as of this encounter Procedures Procedure [...] [facility] Comment: Ag/Tox Neg C. diff?? Negative Clostridium difficile is not present in the specimen. If patient is having diarrhea suspected to be from an infectious cause, then Soap & Water Contact Precautions are still required. Stool 06/06/2024 5:30 PM EDT 06/07/2024 1:32 PM EDT Narrative Resulting Agency Comment Spec In Lab MonalisaDg Weinberg PURIFICATION SUPERVISOR MICROBIOLOGY - GE NERAL ORDERABLES Performing Organization Address [facility] Co de Phone Number [facility] [place] [address] * (ABNORMAL) Calprotectin, Stool (06/06/2024 5:30 PM EDT) Pathologist [facility] Calprotectin, Stool 112(H) <=79 mcg/g [facility] Comment: Calprotectin Concentration ? Interpretation ? < 80 mcg/g ?Normal ? 80 ? 160 mcg/g ?Borderline ? >160 mcg/g ?Elevated Stool 06/06/2024 5:30 PM EDT 06/07/2024 1:07 PM EDT Narrative Resulting Agency Comment Spec In Lab MonalisaDg Weinberg PURIFICATION SUPERVISOR BODY FLUIDS AND S TOOLS ORDERABLES Performing Organization Address [facility] de Phone Number [facility] [place] [address] * Differential, Automated (06/06/2024 9:04 AM EDT) Pathologist [facility] Neutrophil % 70.3 % [facility] Neutrophil Absolute 4.36 1.70 - 6.10 x10(3)/[facility] LABOR[facility] Lymph % 19.7 % [facility] Lymphocytes Abs 1.2 0.9 - 3.2 x10(3)/[facility] Monocyte % 7.7 % [facility] Monocyte Abs 0.5 0.3 - 0.9 x10(3)/[facility] LAB[facility] Eos % 1.3 % [facility] Eosinophils Abs 0.1 0.0 - 0.4 x10(3)/[facility] Basophil % 0.5 % [facility] Baso Absolute 0.0 0.0 - 0.1 x10(3)/[facility]OR[facility] Immature Gran % 0.50 % [facility] Comment: Immature granulocytes(IG's)percentage and absolute count will include metamyelocytes, myelocytes, and promyelocytes. Blood smears from CBCs yielding IG's will be scanned manually for concordance. If this scan disagrees with the automated IG or if promyelocytes are noted, a manual differential will be performed. Immature Gran Absolute 0.03 0.00 - 0.04 x10(3)/[facility] Blood 06/06/2024 9:04 AM EDT 06/06/2024 9:12 AM EDT Narrative Resulting Agency Comment Spec In Lab Marcelle Weinberg PURIFICATION SUPERVISOR HEMATOLOGY ORDERA BLES [facility] [place] [address] * (ABNORMAL) Hemogram (06/06/2024 9:04 AM EDT) White Blood Cell 6.2 4.0 - 9.5 x10(3)/mc L [facility] Red Blood Cell 3.68(L) 4.58 - 5.54 x10(6)/mc L [facility] Hemoglobin 12.0(L) 13.7 - 16.5 g/dL [facility] Hematocrit 35.7(L) 40.5 - 48.5 % [facility] Mean Cell Volume 97.0(H) 82.9 - 93.1 fL [facility] Mean Cell Hemoglobin 32.6(H) 27.5 - 32.1 pg [facility] Mean Cell Hemoglobin Concentration 33.6 32.0 - 35.7 g/dL [facility] Platelet 168 145 - 357 x10(3)/mc L [facility] RDW Standard Deviation 46.7(H) 36.0 - 45.0 fL [facility] RDW coefficient of variation 13.1 11.4 - 13.8 % [facility] Mean Platelet Volume 11.3 7.6 - 12.9 [facility] LABORATORY NRBC% auto 0.0 % [facility] NRBC Absolute 0.000 0.000 - 0.000 x10(3)/mc L [facility] Blood 06/06/2024 9:04 AM EDT 06/06/2024 9:12 AM EDT Narrative Resulting Agency Comment Spec In Lab Marcelle Weinberg PURIFICATION SUPERVISOR HEMATOLOGY ORDERA BLES Performing Organization Address City/[facility]/ZIP Co de Phone Number [facility] [place] [address] * (ABNORMAL) CRP, acute inflammation (06/06/2024 9:04 AM EDT) C-Reactive Protein 6.4(H) <=4.9 mg/L [facility] Blood 06/06/2024 9:04 AM EDT 06/06/2024 9:12 AM EDT Narrative Resulting Agency Comment Spec In Lab Marcelle Weinberg PURIFICATION SUPERVISOR CHEMISTRY ORDERAB LES [facility] [place] [address] * Sedimentation rate (06/06/2024 9:04 AM EDT) [...] Agency Comment Spec In Lab MonalisaDg Weinberg PURIFICATION SUPERVISOR HEMATOLOGY ORDERA BLES [facility] [place] [address] * Comprehensive metabolic panel (non-fasting) (06/06/2024 9:04 [...] APRN CHEMISTRY ORDERAB LES Performing Organization Address City/State/[facility] Co de Phone Number [facility] [place] [address] documented in this encounter Visit Diagnoses Diagnosis Left sided colitis without complications Left sided ulcerative (chronic) colitis documented in this encounter Care Teams Interior Decorator Paperhanging Relationship Specialty Start Date End Date Deacon Watters APRN [address] [place] [address] PCP - General Family Medicine 02/17/22 documented as of this encounter
--- OUTSIDE RECORDS SUMMARY | 2024-07-20 13:35 | XMS_ITS | Encounter Summary ---
Author Organization [facility] [place] [address] Care Team Providers Care Bacteriologist Dairy Name Role Phone Deacon Watters APRN Primary Care Provider +1- [phone] Encounter Details Date Type Department Care Team (Late st Contact Info) Description 06/09/2024 Telephone [place] [phone] Marcelle Weinberg [facility] [place] [address] Social History Tobacco Use Types Packs/Day Years [...] 9:00 AM EDT Office [place] [phone] Dion Barlow MD [facility] [place] [address] 09/01/2024 9:40 AM EDT Office Visit Cardiology at [address] [address] Franky Shaver MD [facility] [place] [address] 09/01/2024 11:20 AM EDT Office Visit Dermatology at [address] [address] Gómez Mercer MD [facility] DR EDDIE [place] [address] 09/21/2024 2:45 PM EDT Office Visit [place] [address] Trung Hoyos MD [facility] [place] [address] Scheduled Orders Name Type Priority Associated Diagnoses Orde r Schedule Calprotectin, Stool Lab Routine Left sided colitis without complications Expected: 08/01/2024 (Approximate), Expires: 06/09/2025 documented as of this encounter Visit Diagnoses Diagnosis Left sided colitis without complications Left sided ulcerative (chronic) colitis documented in this encounter Care Teams Bacteriologist Dairy Relationship Specialty Start Date End Date Deacon Watters APRN [address] [place] [address] PCP - General Family Medicine 02/17/22 documented as of this encounter
--- OUTSIDE RECORDS SUMMARY | 2024-07-20 13:35 | XMS_ITS | Encounter Summary ---
Author Organization [facility] Address [facility] [place] [address] Care Team Providers Care Dish Network Installer Name Role Phone Deacon Watters APRN Primary Care Provider +1- [phone] Encounter Details Date Type Department Care Team (Late st Contact Info) Description 06/29/2024 [place] [address] Ramakrishna Elliott MD [facility] [place] [address] Social History Tobacco Use Types Packs/Day Years [...] Date: 06/29/24 Referring Provider: William Patient Location: [facility] HPI: 74 yoM w/ PMHx [...] as tolerated - TTE - plan for [facility] Recommendations: Above recommendations were based on my discussion with Dr. briscoe; I have not personally interviewed or examined this patient. Advised to call the transfer center back with any changes in the patient condition. Ramakrishna Elliott MD Gas Line Installer documented in this encounter Plan of Treatment Upcoming Encounters Date Type Department Care Team (Late st Contact Info) Description 08/15/2024 9:00 AM EDT Office [place] [address] Dion Barlow MD [facility] [place] [address] 09/01/2024 9:40 AM EDT Office Visit Cardiology at [address] [place] [address] Franky Shaver MD [facility] [place] [address] 09/01/2024 11:20 AM EDT Office Visit Dermatology at [facility] [address] [place] [address] Gómez Mercer MD [facility] DR EDDIE [place] [address] 09/21/2024 2:45 PM EDT Office Visit Pain and Spine Center at [facility] [place] [address] Trung Hoyos MD [facility] [place] [address] documented as of this encounter Visit Diagnoses Not on filedocumented in this encounter Care Teams Dish Network Installer Relationship Specialty Start Date End Date Deacon Watters, SALOONKEEPER [address] [place] [address] PCP - General Family Medicine 02/17/22 documented as of this encounter
--- OUTSIDE RECORDS SUMMARY | 2024-07-20 13:35 | XMS_ITS | Encounter Summary ---
Author Organization [facility] Address [facility] [place] [address] Care Team Providers Care Research Electrician Name Role Phone Duong Deacon Wells APRN Primary Care Provider +1- [phone] Encounter Details Date Type Department Care Team (Late st Contact Info) Description 01/20/2024 10:15 AM EST - 01/20/2024 11:00 AM EST [place] [address] Anthony Hamlin MD [facility] [place] [address] COLONOSCOPY FLEXIBLE, WITH BX (WRVU 3.56) Social [...] occurs, please contact your Doctor. Please call [phone] before 8pm Mon-Fri with problems, questions or concerns. If you call after 8pm or on weekends, call the Hospital at [phone] and ask to speak to the Technical Service Representative diamond finishing supervisor and the concrete grinder operator will contact that person for you. When should you call for help? Call [phone] anytime you think you may need emergency [...] any problems. Where can you learn more? [facility] View your After Visit Summary and more online at [email or web address] If you would like to provide [...] cost to you. Content Version: 12.2 ?? 5724-2213 [employer]. Care instructions adapted under license by [facility]. If you have questions about a medical condition or this instruction, always ask your healthcare professional. [employer] disclaims any warranty or liability for your [...] 9:00 AM EDT Office [place] [address] Dion Barlow MD [facility] [place] [address] 09/01/2024 9:40 AM EDT Office Visit Cardiology at [address] [phone] Franky Shaver MD [facility] [place] [address] 09/01/2024 11:20 AM EDT Office Visit Dermatology at [address] [phone] Gómez Mercer MD [facility] DR EDDIE [place] [address] 09/21/2024 2:45 PM EDT Office Visit [place] [phone] Trung Hoyos MD [facility] [place] [address] documented as of this encounter Procedures Procedure [...] Routine 01/20/2024 10:24 AM EST Colonoscopy, Biopsy ([id number]) 01/20/2024 10:09 AM EST Left sided colitis without complications POCT GLUCOSE Routine 01/20/2024 10:05 AM EST POCT FINGERSTICK GLUCOSE Routine 01/20/2024 10:05 AM EST COLONOSCOPY Routine 01/20/2024 10:01 AM EST documented in this encounter Results * Specimen to Pathology (01/20/2024 10:48 AM EST) AP Specimen 01/20/2024 10:4 8 AM EST 01/20/2024 10:48 AM EST Narrative [facility] - 01/20/2024 10:48 AM EST Specimen requisition ordered. ??Separate Pathology report to follow Anthony Hamlin MD PATHOLOGY/CYTOLOGY O CEE Performing Organization Address [facility] Co de Phone Number [facility] [place] [address] * Specimen to Pathology (01/20/2024 10:48 AM EST) AP Specimen 01/20/2024 10:4 8 AM EST 01/20/2024 10:48 AM EST Narrative [facility] - 01/20/2024 10:48 AM EST Specimen requisition ordered. ??Separate Pathology report to follow Anthony Hamlin MD PATHOLOGY/CYTOLOGY O CEE [facility] [place] [address] * Specimen to Pathology (01/20/2024 10:48 AM EST) AP Specimen 01/20/2024 10:4 8 AM EST 01/20/2024 10:48 AM EST Narrative [facility] - 01/20/2024 10:48 AM EST Specimen requisition ordered. ??Separate Pathology report to follow Anthony Hamlin MD PATHOLOGY/CYTOLOGY O CEE Performing Organization Address City/[facility]/[place] [address] * Specimen to Pathology (01/20/2024 10:48 AM EST) AP Specimen 01/20/2024 10:4 8 AM EST 01/20/2024 10:48 AM EST Narrative [facility] - 01/20/2024 10:48 AM EST Specimen requisition ordered. ??Separate Pathology report to follow Anthony Hamlin MD PATHOLOGY/CYTOLOGY O CEE Performing Organization Address [facility] [place] [address] * Specimen to Pathology (01/20/2024 10:48 AM EST) AP Specimen 01/20/2024 10:4 8 AM EST 01/20/2024 10:48 AM EST Narrative [facility] - 01/20/2024 10:48 AM EST Specimen requisition ordered. ??Separate Pathology report to follow Anthony Hamlin MD PATHOLOGY/CYTOLOGY O CEE Performing Organization Address [facility] Co de Phone Number [facility] [place] [address] * Specimen to Pathology (01/20/2024 10:48 AM EST) AP Specimen 01/20/2024 10:4 8 AM EST 01/20/2024 10:48 AM EST Narrative [facility] - 01/20/2024 10:48 AM EST Specimen requisition ordered. ??Separate Pathology report to follow Anthony Hamlin MD PATHOLOGY/CYTOLOGY O CEE Performing Organization Address City/[facility] [place] [address] * Surgical Pathology Report (01/20/2024 10:24 AM EST) Final Diagnosis [id number] ? Location: 4T; EA12; A The signing [...] Dilip Verified: ??01/29/2024 12:04 ??Pathologist Performed at: ??-[facility] Dept. of Pathology, [place] [address] Flow Match Sofa Cutter: Joana Soler MD, FCAP, ??CLIA Certificate: [id number] SPECIMEN(S) SUBMITTED A - right colon, biopsy [...] labeled F1. ??sns 01/29/2024 12:04 PM EST [facility] GI Biopsy 01/20/2024 10:2 4 [...] MD PATHOLOGY/CYTOLOGY O RDERABLES [facility] [place] [address] [facility] [place] [address] * POCT Glucose (01/20/2024 10:05 AM EST) Glucose, POC 114 65 - 199 mg/dL [facility] Comment: Supplemental ranges: <140 mg/dL before meals <180 mg/dL all other times of the day Blood 01/20/2024 10:0 5 AM EST 01/20/2024 10:05 AM EST Anthony Hamlin MD POINT OF CARE TEST O RDERABLES [facility] [place] [address] * POCT Fingerstick Glucose (01/20/2024 10:05 AM EST) Glucose, POC 114 60 - 199 mg/dl 01/20/2024 10:0 5 AM EST Anthony Hamlin MD POINT OF CARE TEST O RDERABLES * COLONOSCOPY (01/20/2024 10:01 AM EST) COLONOSCOPY [facility] Endoscopy Procedure Date: 01/20/2024 10:01 AM ? Patient Name: Brian Rodriguez ? N: [id number] ? Date of : 1950 ? Age: 73 ? Order #: [id number] ? Instrument Name: [id number] ? Procedure: ? Colonoscopy Indications: ? Follow-up [...] ? physician, the nurse and the ? hearing aid repair technician in the pre-procedure ? area in [...] 01/20/2024 10:0 1 AM EST Deacon Watters MATH AND PHYSICS INSTRUCTOR GENERAL SURGICAL O RDERABLES PROVATION documented in [...] RN) documented in this encounter Care Teams Research Electrician Relationship Specialty Start Date End Date Deacon Watters APRN [address] [place] [address] [address] [place] [address] PCP - General Family Medicine 02/17/22 documented as of this encounter
--- OUTSIDE RECORDS SUMMARY | 2024-07-20 13:35 | XMS_ITS | Encounter Summary ---
Author Organization [facility] Address [facility] [place] [address] Care Team Providers Care Charcoal Kiln Burner Name Role Phone Duong Deacon Wells APRN Primary Care Provider +1- [phone] Reason for Visit * Reason Comments Basal Cell Carcinoma Encounter Details Date Type Department Care Team (Latest Contact Info) Description 02/17/2024 8:00 AM EDT Procedure visit Dermatology at [facility] [address] [place] [address] Kingsley Finn MD [facility] DR EDD[place] [address] Basal cell carcinoma of right side of [...] is performed when alternative procedures such as leaf-un-bvgv stitching is not optimal. Your graft may [...] the first week unless told differently. Some monotype machinist may need to be delayed or delegated [...] as often as is recommended by your learning manager, for new skin cancers. This is once [...] it. If after hours, please call the timber sizer operator or [phone] and ask for the learning manager on-call. If you have any non-urgent questions or concerns, please feel free to call my office or contact me through our patient portal, Bouju, at [email or web address] How to contact us during business hours Dermatology at [facility] Road: Mohs scheduling or Mohs follow-up appointments: [phone] documented in this encounter Progress Notes * [...] and follow up with his or her learning manager or other skin provider. 5. Discussed avoiding [...] and signed by: Kingsley Finn Dermatology [facility] * Kingsley Finn MD - 02/17/2024 8:00 AM EDT Mohs micrographic Surgery Operative Report Patient name: Brian Rodriguez : 1950 Date: 02/17/2024 Staff Surgeon and Pathologist: Kingsley Finn MD PhD Nursing/Pre K Teacher(s): Paula Baez RN, Zuly Morales RN, Barbara Platt JOB DEVELOPER, Olga Yostegand-Kaylin ROBINS, Vladimir Ward CMA, Inge ArellanoNovant Health Franklin Medical CenterAustin HERB COUNSELOR, Leah PATEL Podiatrist Orthopedic (s): Vladimir Alejandro CMA Pre-operative diagnosis: Basal [...] The site was confirmed with the patient/authorized agency sales representative/referring physician and/or a photograph form [...] Surgery and Dermatologic Oncology Department of Dermatology [address] [place] [address] OPERATIVE REPORT (REPAIR) Patient Name: Brian Rodriguez Age: 73 y.o. : 1950 Date: 02/17/2024 Staff Surgeon: Kingsley Finn MD PhD Assistants: Zuly Morales RN; Shannen Garcia MD; Magda Edouard MD Diagnosis: Status post Mohs micrographic surgery defect/wound Site: right nasal dorsum Final Defect Size prior to repair: 4 x 2.9 cm Donor site: right nasolabial fold INDICATION: repair and scientologist of anatomy/function PROCEDURE: Full-thickness skin graft A [...] Rodriguez Staff Surgeon: Kingsley Finn MD PhD Traveling Engineer(s): same as above budget assistant: Zuly Morales RN; Magda Edouard MD; Shannen Garcia MD Date: 02/17/2024 Clinical Diagnosis: skin and soft tissue defect status post Mohs micrographic surgery Location/Site: right nasal dorsum Indication: repair of wound with scientologist of anatomy/function Defect size to be repaired: [...] Surgery and Dermatologic Oncology Department of Dermatology [address] [place], [place] [id number] Note initiated by Zuly Morales RN. Zuly Morales RN has performed the documentation for this encounter in the presence of and acting as a scribe for Dr. Finn I performed the above scribed service and agree with the accuracy of the documentation in this encounter. Reviewed and signed by: Kingsley Finn Dermatology [facility] documented in this encounter Plan of Treatment Upcoming Encounters Date Type Department Care Team (Late st Contact Info) Description 08/15/2024 9:00 AM EDT Office [place] [address] Dion Barlow MD [facility] [place] [address] 09/01/2024 9:40 AM EDT Office Visit Cardiology at [address] [place] [address] Franky Shaver MD [facility] [place] [address] 09/01/2024 11:20 AM EDT Office Visit Dermatology at [facility] [address] [place] [phone] Gómez Mercer MD [facility] [place] [address] 09/21/2024 2:45 PM EDT Office Visit Pain and Spine Center at [facility] [place] [phone] Trung Hoyos MD [facility] [place] [address] documented as of this encounter Visit Diagnoses Diagnosis Basal cell carcinoma of right side of nose Basal cell carcinoma of skin of other and unspecified parts of face documented in this encounter Care Teams Charcoal Kiln Burner Relationship Specialty Start Date End Date Deacon Watters, JAZMINE [address] [facility] [address] [place] [address] PCP - General Family Medicine 02/17/22 documented as of this encounter
--- OUTSIDE RECORDS SUMMARY | 2024-07-20 13:35 | XMS_ITS | Encounter Summary ---
Author Organization [facility] [place] [address] Care Team Providers Care Medical Coder Name Role Phone Deacon Watters APRN Primary Care Provider +1- [phone] Encounter Details Date Type Department Care Team (Latest Contact Info) Description 06/07/2024 12:55 PM EDT - 06/07/2024 11:59 PM EDT Hospital [place] [address] Left sided colitis without complications Discharge Disposition: [...] EDT Office [place] [phone] Dion Barlow MD [facility] [place] [address] 09/01/2024 9:40 AM EDT Office Visit Cardiology at [address] [phone] Franky Shaver MD [facility] [place] [address] 09/01/2024 11:20 AM EDT Office Visit Dermatology at [address] [address] Gómez Mercer MD [facility] [place] [address] 09/21/2024 2:45 PM EDT Office Visit [place] [phone] Trung Hoyos MD [facility] [place] [address] documented as of this encounter Procedures Procedure [...] 1 EIA Negative for Shiga Toxin 2 [facility] Stool 06/07/2024 9:00 AM EDT 06/07/2024 1:32 PM EDT Narrative Resulting Agency Comment Spec In Lab Marcelle Weinberg HYDRO PNEUMATIC TESTER MICROBIOLOGY - GE NERAL ORDERABLES Performing Organization Address City/[facility]/ZIP Co de Phone Number [facility] [place] [address] * Campylobacter Antigen (06/07/2024 9:00 AM EDT) Campylobacter Ag Immunoassay Negative for Campylobacter Antigen [facility] Stool 06/07/2024 9:00 AM EDT 06/07/2024 1:32 PM EDT Narrative Resulting Agency Comment Spec In Lab Marcelle Weinberg HYDRO PNEUMATIC TESTER MICROBIOLOGY - GE NERAL ORDERABLES Performing Organization Address City/[facility]/ZIP Co de Phone Number [facility] [place] [address] * Stool culture (06/07/2024 9:00 AM EDT) Stool Culture No enteric pathogens isolated [facility] Stool 06/07/2024 9:00 AM EDT 06/07/2024 1:32 PM EDT Narrative Resulting Agency Comment Spec In Lab Marcelle Weinberg HYDRO PNEUMATIC TESTER MICROBIOLOGY - GE NERAL ORDERABLES Performing Organization Address City/[facility]/ZIP Co de Phone Number [facility] [place] [address] documented in this encounter Visit Diagnoses Diagnosis Left sided colitis without complications Left sided ulcerative (chronic) colitis documented in this encounter Additional Health Concerns Infection Onset Date Last Indicated Resolved Time Rule Out C. difficile 06/07/2024 06/06/20242023 2:27 PM EDT documented as of this encounter Care Teams Medical Coder Relationship Specialty Start Date End Date Deacon Watters APRN [address] [place] [address] PCP - General Family Medicine 02/17/22 documented as of this encounter
--- OUTSIDE RECORDS SUMMARY | 2024-07-20 13:35 | XMS_ITS | Encounter Summary ---
Author Organization [facility] Address [facility] [place] [address] Care Team Providers Care Hand Cloth Examiner Name Role Phone Duong Deacon Wells APRN Primary Care Provider +1- [phone] Encounter Details Date Type Department Care Team [...] 9:00 AM EDT Office Visit [place] [address] Dion Barlow MD [facility] [place] [address] 09/01/2024 9:40 AM EDT Office Visit Cardiology at [address] [phone] Franky Shaver MD [facility] [place] [address] 09/01/2024 11:20 AM EDT Office Visit Dermatology at [facility] [address] [place] [address] Gómez Mercer MD [facility] DR EDD[place] [address] 09/21/2024 2:45 PM EDT Office Visit [facility] [place] [phone] Trung Hoyos MD [facility] [place] [address] documented as of this encounter Visit Diagnoses Not on filedocumented in this encounter Care Teams Hand Cloth Examiner Relationship Specialty Start Date End Date Deacon Watters, JAZMINE [address] [place] [address] PCP - General Family Medicine 02/17/22 documented as of this encounter
--- OUTSIDE RECORDS SUMMARY | 2024-07-20 13:35 | XMS_ITS | Encounter Summary ---
Author Organization [facility] Address [facility] [place] [address] Care Team Providers Care Detail Assembler Name Role Phone Duong Deacon Wells APRN Primary Care Provider +1- [phone] Reason for Visit * Reason Comments Rash Encounter Details Date Type Department Care Team (Late st Contact Info) Description 06/07/2024 1:20 PM EDT Office Visit Dermatology at [facility] [address] [place] [address] Gómez Mercer MD [facility] [place] [address] Tinea cruris Social History Tobacco Use Types [...] for Tinea Cruris []Note routed to secretary office clerk []Recall placed in scheduling system [x]Appointment scheduled at checkout Scribe attestation: Danyell Anton [facility] SANITARIUMEduardo has performed the documentation for this encounter inthe presence of and acting as a scribe for Gómez Mercer MD. I performed the above scribed service and agree with the accuracy of the documentation in this encounter. Reviewed and signed by: Gómez Mercer MD Dermatology [facility] Patient seen and evaluated with staff taping foreman: Maria G Padilla MD Dermatology [facility] * Maria G Padilla MD - [...] as documented. Maria G Padilla MD Staff Ophthalmic Dispenser Department of Dermatology [facility] documented in this encounter Plan of Treatment Upcoming Encounters Date Type Department Care Team (Late st Contact Info) Description 08/15/2024 9:00 AM EDT Office [place] [address] Dion Barlow MD [facility] [place] [address] 09/01/2024 9:40 AM EDT Office Visit Cardiology at [address] [phone] Franky Shaver MD [facility] [place] [address] 09/01/2024 11:20 AM EDT Office Visit Dermatology at [facility] [address] [place] [address] Gómez Mercer MD [facility] DR EDDIE [place] [address] 09/21/2024 2:45 PM EDT Office Visit [facility] [place] [address] Trung Hoyos MD [facility] [place] [address] documented as of this encounter Visit Diagnoses Diagnosis Tinea cruris Dermatophytosis of groin and perianal area documented in this encounter Additional Health Concerns Infection Onset Date Last Indicated Resolved Time Rule Out C. difficile 06/07/2024 06/06/20242023 2:27 PM EDT documented as of this encounter Care Teams Detail Assembler Relationship Specialty Start Date End Date Deacon Watters APRN [address] [place] [address] PCP - General Family Medicine 02/17/22 documented as of this encounter
--- OUTSIDE RECORDS SUMMARY | 2024-07-20 13:36 | XMS_ITS | Encounter Summary ---
Author Organization [facility] Address [facility] [place] [address] Care Team Providers Care Metal Mold Dresser Name Role Phone Duong Deacon Wells APRN Primary Care Provider +1- [phone] Encounter Details Date Type Department Care Team [...] 9:00 AM EDT Office [place] [address] Dion Barlow MD [facility] [place] [address] 09/01/2024 9:40 AM EDT Office Visit Cardiology at [address] [phone] Franky Shaver MD [facility] [place] [address] 09/01/2024 11:20 AM EDT Office Visit Dermatology at [facility] [address] [place] [address] Gómez Mercer MD [facility] DR [place] [address] 09/21/2024 2:45 PM EDT Office Visit [place] [phone] Trung Hoyos MD [facility] [place] [address] documented as of this encounter Visit Diagnoses Not on filedocumented in this encounter Care Teams Metal Mold Dresser Relationship Specialty Start Date End Date Deacon Watters, JAZMINE [address] [place] [address] PCP - General Family Medicine 02/17/22 documented as of this encounter
--- OUTSIDE RECORDS SUMMARY | 2024-07-20 13:36 | XMS_ITS | Encounter Summary ---
Author Organization [facility] [place] [address] Care Team Providers Care Boiler Shop Supervisor Name Role Phone Josue Wilkinson MD Primary Care Provider [phone] Reason for Visit * Reason Onset Date Comments Medication Refill 05/06/2021 Encounter Details Date Type Department Care Team (Late st Contact Info) Description 05/06/2021 Refill [place] [phone] Marcelle Weinberg, JAZMINE [facility] [place] [address] Social History Tobacco Use Types Packs/Day Years [...] EDT Office Visit [place] [phone] [facility] [place] [address] 09/01/2024 9:40 AM EDT Office Visit Cardiology at [address] [place] [phone] [facility] [place] [address] 09/01/2024 11:20 AM EDT Office Visit Dermatology at [facility] [address] [place] [address] [address]cer [address] [facility] [place] [address] 09/21/2024 2:45 PM EDT Office Visit [facility] [place] [address] [facility] [place] [address] documented as of this encounter Visit Diagnoses Not on filedocumented in this encounter Care Teams Boiler Shop Supervisor Relationship Specialty Start Date End Date Josue Wilkinson MD PCP - General General Internal Medicine 02/14/21 9/3 documented as of this encounter
--- OUTSIDE RECORDS SUMMARY | 2024-07-20 13:36 | XMS_ITS | Encounter Summary ---
Author Organization [facility] [place] [address] Care Team Providers Care Vp Training Name Role Phone Deacon Watters Priscilla LUCERO Primary Care Provider +1- [phone] Reason for Visit * Reason Onset Date Comments Medication Refill 08/22/2022 Encounter Details Date Type Department Care Team (Late st Contact Info) Description 08/22/2022 Refill [place] [phone] Dion Barlow MD [facility] [place] [address] Social History Tobacco Use Types Packs/Day Years [...] 9:00 AM EDT Office [place] [phone] Dion Barlow MD [facility] [place] [address] 09/01/2024 9:40 AM EDT Office Visit Cardiology at [address] [place] [address] Franky Shaver MD [facility] [place] [address] 09/01/2024 11:20 AM EDT Office Visit Dermatology at [facility] [address] [place] [address] Gómez Mercer MD [facility] [place] [address] 09/21/2024 2:45 PM EDT Office Visit [facility] [place] [address] Trung Hoyos MD [facility] [place] [address] documented as of this encounter Visit Diagnoses Not on filedocumented in this encounter Care Teams Vp Training Relationship Specialty Start Date End Date Deacon Watters, PROBATION WORKER [address] [place] [address] PCP - General Family Medicine 02/17/22 documented as of this encounter
--- OUTSIDE RECORDS SUMMARY | 2024-07-20 13:36 | XMS_ITS | Encounter Summary ---
Author Organization [facility] [place] [address] Care Team Providers Care Vegetable Scullion Name Role Phone DuongDeacon Priscilla LUCERO Primary Care Provider +1- [phone] Encounter Details Date Type Department Care Team (Late st Contact Info) Description 11/10/2022 Telephone [place] [address] Dianna Shen RN Social History [...] 9:00 AM EDT Office [place] [address] Dion Barlow MD [facility] [place] [address] 09/01/2024 9:40 AM EDT Office Visit Cardiology at [address] [place] [phone] Franky Shaver MD [facility] [place] [address] 09/01/2024 11:20 AM EDT Office Visit Dermatology at [facility] [address] [place] [address] Gómez Mercer MD [facility] [place] [address] 09/21/2024 2:45 PM EDT Office Visit [place] [address] Trung Hoyos MD [facility] [place] [address] documented as of this encounter Visit Diagnoses Not on filedocumented in this encounter Care Teams Vegetable Scullion Relationship Specialty Start Date End Date Deacon Watters APRN [address] [place] [address] PCP - General Family Medicine 02/17/22 documented as of this encounter
--- OUTSIDE RECORDS SUMMARY | 2024-07-20 13:36 | XMS_ITS | Encounter Summary ---
Author Organization [facility] [place] [address] Care Team Providers Care Egg Caser Name Role Phone Deacon Watters APRN Primary Care Provider +1- [phone] Encounter Details Date Type Department Care Team (Late st Contact Info) Description 10/27/2023 Ancillary Procedure [place] [address] Deacon Watters APRN [address] [place], [place] [address] Social History Tobacco Use Types Packs/Day Years [...] 9:00 AM EDT Office [place] [address] Dion Barlow MD [facility] [place] [address] 09/01/2024 9:40 AM EDT Office Visit Cardiology at [address] [place] [address] Franky Shaver MD [facility] [place] [address] 09/01/2024 11:20 AM EDT Office Visit Dermatology at [facility] [address] [place] [address] Gómez Mercer MD [facility] DR EDDIE [place] [address] 09/21/2024 2:45 PM EDT Office Visit [place] [address] Trung Hoyos MD [facility] [place] [address] documented as of this encounter Procedures Procedure Name Priority Date/Time Associated Diagnosis Comments FILM LIBRARY STORAGE ONLY MR SPINE Routine 10/27/2023 12:00 AM EST documented in this encounter Results * Film Library- Storage Only MR Spine (10/27/2023 12:00 AM EST) Narrative [facility] [place] - 11/11/2023 10:39 AM EST This exam is auto-finalizing. It's purpose is for storage only. Deacon Watters APRN IMG FILM LIBRARY O RDERABLES [place], [place] documented in this encounter Visit Diagnoses Not on filedocumented in this encounter Care Teams Egg Caser Relationship Specialty Start Date End Date Deacon Watters APRN [address] [place] [address] PCP - General Family Medicine 02/17/22 documented as of this encounter
--- OUTSIDE RECORDS SUMMARY | 2024-07-20 13:36 | XMS_ITS | Encounter Summary ---
Author Organization [facility] [place] [address] Care Team Providers Care Solar Lab Technician Name Role Phone Josue Wilkinson MD Primary Care Provider Encounter Details Date Type Department Care Team (Latest Contact Info) Description 05/31/2021 1:35 PM EDT Laboratory Appointment Lab [address] [place] [address] Left sided colitis without complications Social History [...] 9:00 AM EDT Office [place] [address] Dion Barlow MD [facility] [place] [address] 09/01/2024 9:40 AM EDT Office Visit Cardiology at [address] [phone] Franky Shaver MD [facility] [place] [place] [address] 09/01/2024 11:20 AM EDT Office Visit Dermatology at [facility] [address] [place] [address] Gómez Mercer MD [facility] DR EDDIE [place] [address] 09/21/2024 2:45 PM EDT Office Visit Pain and Spine Center at [address] [place] [address] Trung Hoyos MD [facility] [place] [address] documented as of this encounter Procedures Procedure [...] 1:49 PM EDT) Neutrophil % 70.8 % [facility] Neutrophil Absolute 5.02 1.70 - 6.10 x10(3)/[facility] LABORAT[facility] Lymph % 18.5 % [facility] Lymphocytes Abs 1.3 0.9 - 3.2 x10(3)/[facility] LABORATORY Monocyte % 6.9 % [facility] Monocyte Abs 0.5 0.3 - 0.9 x10(3)/[facility] LABOR[facility]ORY Eos % 2.8 % [facility] Eosinophils Abs 0.2 0.0 - 0.4 x10(3)/[facility] LABORATORY Basophil % 0.6 % [facility] Baso Absolute 0.0 0.0 - 0.1 x10(3)/[facility] LABORATORY Immature Gran % 0.40 [...] Gran Absolute 0.03 0.00 - 0.04 x10(3)/[facility] LABORATORY Blood 05/31/2021 1:49 PM EDT 05/31/2021 1:52 PM EDT Narrative Resulting Agency Comment Spec In Lab Marcelle Weinberg REMOTE SENSING SCIENTIST HEMATOLOGY ORDERA BLES [facility] [place] [address] * (ABNORMAL) Hemogram (05/31/2021 1:49 PM EDT) White Blood Cell 7.1 4.0 - 9.5 x10(3)/[facility] LABOR[facility] Red Blood Cell 3.85(L) 4.58 - [...] MEDICAL CENTER LABORATORY NRBC% auto 0.0 % [facility] NRBC Absolute 0.000 0.000 - 0.000 x10(3)/mc L [facility] Blood 05/31/2021 1:49 PM EDT 05/31/2021 1:52 PM EDT Narrative Resulting Agency Comment Spec In Lab Marcelle Weinberg REMOTE SENSING SCIENTIST HEMATOLOGY ORDERA BLES Performing Organization Address City/[facility]/ZIP Co de Phone Number [facility] [place] [address] * Ferritin (05/31/2021 1:49 PM EDT) [facility] Ferritin 94 30 - 400 ng/mL [facility] Comment: Pediatric reference ranges not verified at [facility], interpret with caution. Reference ranges for females greater than 50 years of age approach values for men, i.e., 30-400 ng/mL. Blood 05/31/2021 1:49 PM EDT 05/31/2021 1:52 PM EDT Narrative Resulting Agency Comment Spec In Lab Marcelle Weinberg REMOTE SENSING SCIENTIST CHEMISTRY ORDERAB LES Performing Organization Address City/[facility]/ZIP Co de Phone Number [facility] [place] [address] * Iron and TIBC (05/31/2021 1:49 PM EDT) Iron 86 45 - 160 mcg/dL [facility] TIBC 286 250 - 450 mcg/dL [facility] Iron Saturation 30 20 - 50 % [facility] Blood 05/31/2021 1:49 PM EDT 05/31/2021 1:52 PM EDT Narrative Resulting Agency Comment Spec In Lab Marcelle Weinberg REMOTE SENSING SCIENTIST CHEMISTRY ORDERAB LES Performing Organization Address City/[facility]/ZIP Co de Phone Number [facility] [place] [address] * Vitamin B12 (05/31/2021 1:49 PM EDT) Vitamin B12 389 232 - 1,245 pg/mL [facility] Blood 05/31/2021 1:49 PM EDT 05/31/2021 1:52 PM EDT Narrative Resulting Agency Comment Spec In Lab Marcelle Dunnjeovannyjnaia REMOTE SENSING SCIENTIST CHEMISTRY ORDERAB LES Performing Organization Address City/[facility]/ZIP Co de Phone Number [facility] [place] [address] documented in this encounter Visit Diagnoses Diagnosis Left sided colitis without complications Left sided ulcerative (chronic) colitis documented in this encounter Care Teams Solar Lab Technician Relationship Specialty Start Date End Date Josue Wilkinson MD PCP - General General Internal Medicine 02/14/21 9/3 documented as of this encounter
--- OUTSIDE RECORDS SUMMARY | 2024-07-20 13:36 | XMS_ITS | Encounter Summary ---
Author Organization [facility] [place] [address] Care Team Providers Care Pet Walker Name Role Phone Deacon Watters APRN Primary Care Provider +1- [phone] Reason for Referral * Diagnostic Test (Routine) - Closed Specialty Diagnoses / Procedures Referred By Contac t Referred To Contact Radiology Diagnoses Left sided colitis without complications Procedures CT Abdomen & Pelvis w Contrast Dion Barlow MD [facility] [place] [address] Referral ID Status Reason Start Date Expiration Date V isits Requested Visits Authorized [id number] Closed Specialty Service Requested 04/22/2022 10/22/2023 1 1 Reason for Visit * Diagnostic Test (Routine) - Closed Specialty Diagnoses / Procedures Referred By Contac t Referred To Contact Radiology Diagnoses Left sided colitis without complications Procedures CT Abdomen & Pelvis w Contrast Dion Barlow MD [facility] [place] [address] Referral ID Status Reason Start Date Expiration Date V isits Requested Visits Authorized [id number] Closed Specialty Service Requested 04/22/2022 10/22/2023 1 1 Encounter Details Date Type Department Care Team (Latest Contact Info) Description 09/29/2022 1:05 PM EST - 09/29/2022 11:59 PM EST Hospital [place] [address] Dion Barlow MD [facility] [place] [address] Left sided colitis without complications Discharge Disposition: [...] 9:00 AM EDT Office [place] [address] Dion Barlow MD [facility] [place] [address] 09/01/2024 9:40 AM EDT Office Visit Cardiology at [address] [phone] Franky Shaver MD [facility] [place] [address] 09/01/2024 11:20 AM EDT Office Visit Dermatology at [facility] [address] [place] [address] Gómez Mercer MD [facility] DR EDD[place] [address] 09/21/2024 2:45 PM EDT Office Visit Pain and Spine Center at [facility] [place] [address] Trung Hoyos MD [facility] [place] [address] documented as of this encounter Procedures Procedure [...] who have questions please contact the health care coordination manager that requested your imaging first. ? [...] mLs documented in this encounter Care Teams Pet Walker Relationship Specialty Start Date End Date Deacon Watters, JAZMINE [address] [place] [address] PCP - General Family Medicine 02/17/22 documented as of this encounter
--- OUTSIDE RECORDS SUMMARY | 2024-07-20 13:36 | XMS_ITS | Encounter Summary ---
[place] [address] Care Team Providers Care Aqueduct And Reservoir Keeper Name Role Phone Deacon Watters APRN Primary Care Provider +1- [phone] Encounter Details Date Type Department Care Team (Late st Contact Info) Description 02/26/2022 Telephone [place] [address] Erika Armas Social History Tobacco Use Types [...] - 02/26/2022 1:04 PM EDT Brian Rodriguez [id number] Diagnosis/Indication: UC, restage disease and for surveillance [...] 9:00 AM EDT Office Visit [place] [address] Dion Barlow MD [facility] [place] [address] 09/01/2024 9:40 AM EDT Office Visit Cardiology at [address] [phone] Franky Shaver MD [facility] [place] [address] 09/01/2024 11:20 AM EDT Office Visit Dermatology at [facility] [address] [place] [address] Gómez Mercer MD [facility] DR EDDIE [place] [address] 09/21/2024 2:45 PM EDT Office Visit Pain and Spine Center at [facility] [place] [address] Trung Hoyos MD [facility] [place] [address] documented as of this encounter Visit Diagnoses Not on filedocumented in this encounter Care Teams Aqueduct And Reservoir Keeper Relationship Specialty Start Date End Date Deacon Watters APRN [address] [place] [address] PCP - General Family Medicine 02/17/22 documented as of this encounter
--- OUTSIDE RECORDS SUMMARY | 2024-07-20 13:36 | XMS_ITS | Encounter Summary ---
Author Organization [facility] [place] [address] Care Team Providers Care Underground Drill Operator Name Role Phone Deacon Watters APRN Primary Care Provider +1- [phone] Encounter Details Date Type Department Care Team (Late st Contact Info) Description 11/03/2022 Telephone [place] [address] Jarret Roa RN Social History Tobacco Use [...] weeks. Labs and stool studies sent to [facility]- He will call when he [...] 11/03/2022 2:40 PM EST Per Farideh Weinberg, CREDIT CLERK: Could you please check on him in [...] EDT Office [place] [address] Dion Barlow MD [facility] [place] [address] 09/01/2024 9:40 AM EDT Office Visit Cardiology at [address] [address] Franky Shaver MD [facility] [place] [address] 09/01/2024 11:20 AM EDT Office Visit Dermatology at [facility] [address] [place] [address] Gómez Mercer MD [facility] DR EDDIE [place] [address] 09/21/2024 2:45 PM EDT Office Visit Pain and Spine Center at [facility] [place] [address] Trung Hoyos MD [facility] [place] [address] documented as of this encounter Visit Diagnoses Not on filedocumented in this encounter Care Teams Underground Drill Operator Relationship Specialty Start Date End Date Deacon Watters APRN [address] [place] [address] [address] [place] [address] PCP - General Family Medicine 02/17/22 documented as of this encounter
--- OUTSIDE RECORDS SUMMARY | 2024-07-20 13:36 | XMS_ITS | Encounter Summary ---
Author Organization [facility] Address [facility] [place] [address] Care Team Providers Care Paper Roller Name Role Phone Duong Deacon Wells APRN Primary Care Provider +1- [phone] Encounter Details Date Type Department Care Team [...] 9:00 AM EDT Office [place] [address] Dion Barlow MD [facility] [place] [address] 09/01/2024 9:40 AM EDT Office Visit Cardiology at [address] [phone] Franky Shaver MD [facility] [place] [address] 09/01/2024 11:20 AM EDT Office Visit Dermatology at [facility] [address] [place] [address] Gómez Mercer MD [facility] DR EDD[place] [address] 09/21/2024 2:45 PM EDT Office Visit [place] [address] Trung Hoyos MD [facility] [place] [address] documented as of this encounter Visit Diagnoses Not on filedocumented in this encounter Care Teams Paper Roller Relationship Specialty Start Date End Date Deacon Watters, JAZMINE [address] [place] [address] PCP - General Family Medicine 02/17/22 documented as of this encounter
--- OUTSIDE RECORDS SUMMARY | 2024-07-20 13:36 | XMS_ITS | Encounter Summary ---
Author Organization [facility] Address [facility] [place] [address] Care Team Providers Care Fluid Dynamicist Name Role Phone Josue Wilkinson MD Primary Care Provider [phone] Encounter Details Date Type Department Care Team (Latest Contact Info) Description 04/29/2021 9:00 AM EDT Office [place] [address] Marcelle Weinberg, JAZMINE [facility] [place] [address] Left sided colitis without complications Social History [...] encounter Progress Notes * Marcelle Weinberg C, TRAFFIC ANALYSIS TECHNICIAN - 04/29/2021 9:00 AM EDT Primary care [...] the sigmoid nl ?? Repeat exam 11/27/11 ([facility]): mildly active colitis in the sigmoid colon [...] Ref Range Status ??? COLONOSCOPY 02/26/2021 Final Value:[facility] Endoscopy Procedure Date: 02/26/2021 4:21 PM Patient Name: Brian Rodriguez Date of : 1950 Age: 70 Order #: [id number] Instrument Name: [id number] Procedure: Colonoscopy Indications: High risk colon cancer surveillance: Ulcerative colitis Patient Profile: This is a 70 year old male. This patient has left-sided ulcerative colitis, is taking sulfasalazine and topical steroid foam, and he is experien cing mild symptoms. Providers: Davnia Barlow MD, Robi Payne MD: Josue Wilkinson [...] bowel preparation was evaluated using the BBPS ([place] Bowel Preparation Scale) with scores of: Right [...] Final ??? Surgical Pathology Report 02/26/2021 Final Value:[id number] Location: 4T; EA08; A The signing pathologist [...] MD Verified: 03/04/2021 16:33 Pathologist Performed at: -[facility], [place], [place] SPECIMEN(S) SUBMITTED A - right colon [...] Disease Center Section of Gastroenterology [place] [address] documented in this encounter Plan of Treatment Upcoming Encounters Date Type Department Care Team (Late st Contact Info) Description 08/15/2024 9:00 AM EDT Office [place] [address] Dion Barlow MD [facility] [place] [address] 09/01/2024 9:40 AM EDT Office Visit Cardiology at [address] [place] [address] Franky Shaver MD [facility] [place] [address] 09/01/2024 11:20 AM EDT Office Visit Dermatology at [facility] [address] [place] [address] Gómez Mercer MD [facility] DR EDD[place] [address] 09/21/2024 2:45 PM EDT Office Visit Pain and Spine Center at [facility] [place] [place] [address] Trung Hoyos MD [facility] [place] [address] documented as of this encounter Procedures Procedure [...] 10:22 AM EDT) Neutrophil % 65.3 % [facility] Neutrophil Absolute 3.34 1.70 - 6.10 x10(3)/ L [facility] Lymph % 23.0 % [facility] Lymphocytes Abs 1.2 0.9 - 3.2 x10(3)/ L [facility] Monocyte % 6.6 % [facility] Monocyte Abs 0.3 0.3 - 0.9 x10(3)/mc L [facility] Eos % 2.9 % [facility] Eosinophils Abs 0.2 0.0 - 0.4 x10(3)/[facility] LABORATORY Basophil % 1.0 % [facility] Baso Absolute 0.0 0.0 - 0.1 x10(3)/[facility] LABORATORY Immature Gran % 1.20 % [...] Agency Comment Spec In Lab Marcelle Weinberg TRAFFIC ANALYSIS TECHNICIAN HEMATOLOGY ORDERA BLES [facility] [place] [address] * (ABNORMAL) Hemogram (04/29/2021 10:22 AM EDT) [...] RDW Standard Deviation 45.1(H) 36.0 - 45.0 [facility] LABORATORY RDW coefficient of variation 12.2 11.4 - 13.8 % [facility] Mean Platelet Volume 11.5 7.6 - 12.9 [facility] LABORATORY NRBC% auto 0.0 % [facility] NRBC Absolute 0.000 0.000 - 0.000 x10(3)/mc L [facility] Blood 04/29/2021 10:2 2 AM EDT 04/29/2021 10:29 AM EDT Narrative Resulting Agency Comment Spec In Lab Marcelle Weinberg APRN HEMATOLOGY ORDERA BLES [facility] [place] [address] * CRP, acute inflammation (04/29/2021 10:22 AM EDT) C-Reactive Protein <3.0 <=4.9 mg/L [facility] Blood 04/29/2021 10:2 2 AM EDT 04/29/2021 10:29 AM EDT Narrative Resulting Agency Comment Spec In Lab Marcelle Weinberg TRAFFIC ANALYSIS TECHNICIAN CHEMISTRY ORDERAB LES Performing Organization Address [facility]/ZIP Co de Phone Number [facility] [place] [address] * Sedimentation rate (04/29/2021 10:22 AM EDT) [...] APRN HEMATOLOGY ORDERA BLES Performing Organization Address [facility] Co de Phone Number [facility] [place] [address] * (ABNORMAL) Comprehensive metabolic panel (non-fasting) (04/29/2021 [...] Agency Comment Spec In Lab Marcelle Weinberg TRAFFIC ANALYSIS TECHNICIAN CHEMISTRY ORDERAB LES Performing Organization Address City/State/[facility] Co de Phone Number [facility] [place] [address] documented in this encounter Visit Diagnoses Diagnosis Left sided colitis without complications Left sided ulcerative (chronic) colitis documented in this encounter Care Teams Fluid Dynamicist Relationship Specialty Start Date End Date Josue Wilkinson MD PCP - General General Internal Medicine 02/14/21 9/ documented as of this encounter
--- OUTSIDE RECORDS SUMMARY | 2024-07-20 13:36 | XMS_ITS | Encounter Summary ---
[place] [address] Care Team Providers Care Sap Manager Name Role Phone Duong Deacon Wells APRN Primary Care Provider +1- [phone] Encounter Details Date Type Department Care Team (Late st Contact Info) Description 10/15/2022 Telephone [place] [phone] Roselia Coronado Social History Tobacco Use Types [...] 9:00 AM EDT Office Visit [place] [address] [facility] [place] [address] 09/01/2024 9:40 AM EDT Office Visit Cardiology at [address] [place] [address] [facility] [place] [address] 09/01/2024 11:20 AM EDT Office Visit Dermatology at [facility] [address] [place] [address]mez Mercer [address] [facility] [place] [address] 09/21/2024 2:45 PM EDT Office Visit [facility] [place] [phone] [facility] [place] [address] documented as of this encounter Visit Diagnoses Not on filedocumented in this encounter Care Teams Sap Manager Relationship Specialty Start Date End Date Deacon Watters, INVESTMENT BANKER [address] [facility] 1 [place] [address] PCP - General Family Medicine 02/17/22 documented as of this encounter
--- OUTSIDE RECORDS SUMMARY | 2024-07-20 13:36 | XMS_ITS | Encounter Summary ---
[place] [address] Care Team Providers Care Quill Picking Machine Operator Name Role Phone Duong Deacon Wells APRN Primary Care Provider +1- [phone] Encounter Details Date Type Department Care Team (Late st Contact Info) Description 02/12/2023 Telephone [place] [phone] Kelly Castillo RN Social History Tobacco Use [...] local ER. He would likely go to [place] if this is the case. Will ask regular IBD team to f/u with him in the AM. documented in this encounter Plan of Treatment Upcoming Encounters Date Type Department Care Team (Late st Contact Info) Description 08/15/2024 9:00 AM EDT Office Visit [place] [phone] Dion Barlow MD [facility] [address] 09/01/2024 9:40 AM EDT Office Visit Cardiology at [address] [place] [phone] Franky Shaver MD [facility] [place] [address] 09/01/2024 11:20 AM EDT Office Visit Dermatology at [facility] [address] [place] [address] Gómez Mercer MD [facility] [place] [address] 09/21/2024 2:45 PM EDT Office Visit [facility] [place] [address] Trung Hoyos MD [facility] [place] [address] documented as of this encounter Visit Diagnoses Not on filedocumented in this encounter Care Teams Quill Picking Machine Operator Relationship Specialty Start Date End Date Deacon Watters, JAZMINE [address] [place] [address] [address] [facility] 1 [place] [address] PCP - General Family Medicine 02/17/22 documented as of this encounter
--- OUTSIDE RECORDS SUMMARY | 2024-07-20 13:36 | XMS_ITS | Encounter Summary ---
Author Organization [facility] Address [facility] [place] [address] Care Team Providers Care Video Production Coordinator Name Role Phone Deacon Watters APRN Primary Care Provider +1- [phone] Encounter Details Date Type Department Care Team (Late st Contact Info) Description 09/29/2022 11:00 AM EST Office Visit [place] [address] Marcelle Weinberg HOUSE CLEANER [facility] [place] [address] Left sided colitis without complications; Other ulcerative [...] was cancer, followed by Dr. Carrillo, at [facility]. IBD Questionnaire No questionnaires on file. [...] Vitals: 09/29/22 1108 BP: 153/72 BP Location ([facility]): Left arm Patient Position: Sitting BP Cuff [...] Disease Center Section of Gastroenterology [place] [address] documented in this encounter Miscellaneous Notes * Addendum Note - Andres De Dios - 09/29/2022 11:00 AM ESTAddended by: ANDRES DE DIOS on: 09/29/2022 12:05 PM Modules accepted: Orders documented in this encounter Plan of Treatment Upcoming Encounters Date Type Department Care Team (Late st Contact Info) Description 08/15/2024 9:00 AM EDT Office Visit [place] [address] Dion Barlow MD [facility] [place] [address] 09/01/2024 9:40 AM EDT Office Visit Cardiology at [address] [place] [phone] Franky Shaver MD [facility] [place] [address] 09/01/2024 11:20 AM EDT Office Visit Dermatology at [facility] [address] [place] [phone] Gómez Mercer MD [facility] [place] [address] 09/21/2024 2:45 PM EDT Office Visit Pain [place] [address] Trung Hoyos MD [facility] [place] [address] documented as of this encounter Procedures Procedure [...] Agency Comment Spec In Lab Marcelle Weinberg HOUSE CLEANER HEMATOLOGY ORDERA BLES Performing Organization Address [facility]/ZIP Co de Phone Number [facility] [place] [address] * CRP, acute inflammation (09/29/2022 12:09 PM EST) C-Reactive Protein <3.0 <=4.9 mg/L [facility] Blood 09/29/2022 12:0 9 PM EST 09/29/2022 12:15 PM EST Narrative Resulting Agency Comment Spec In Lab Marcelle Weinberg HOUSE CLEANER CHEMISTRY ORDERAB LES Performing Organization Address [facility] Co de Phone Number [facility] [place] [address] * Creatinine (09/29/2022 12:09 PM EST) Creatinine 1.10 0.80 - 1.50 mg/dL [facility] Est Glomerular Filtration Rate 70 >=60 mL/min/1. 73 m?? [facility] Comment: This patient's estimated GFR [...] Agency Comment Spec In Lab Marcelle Dunnjeovannyjania HOUSE CLEANER CHEMISTRY ORDERAB LES [facility] [place] [place] [address] documented in this encounter Visit Diagnoses Diagnosis Left sided colitis without complications Left sided ulcerative (chronic) colitis Other ulcerative colitis with rectal bleeding documented in this encounter Care Teams Video Production Coordinator Relationship Specialty Start Date End Date Deacon Watters APRN [address] [place] [address] PCP - General Family Medicine 02/17/22 documented as of this encounter
--- OUTSIDE RECORDS SUMMARY | 2024-07-20 13:36 | XMS_ITS | Encounter Summary ---
Author Organization [facility] Address [facility] [place] [address] Care Team Providers Care Central Processing Technician Name Role Phone Deacon Watters APRN Primary Care Provider +1- [phone] Reason for Referral * Diagnostic Test (Routine) - Closed Specialty Diagnoses / Procedures Referred By Contac t Referred To Contact Radiology Diagnoses Left sided colitis without complications Procedures CT Abdomen & Pelvis w Contrast Dion Barlow MD [facility] [place] [address] Referral ID Status Reason Start Date Expiration Date V isits Requested Visits Authorized [id number] Closed Specialty Service Requested 04/22/2022 10/22/2023 1 1 Encounter Details Date Type Department Care Team (Late st Contact Info) Description 04/22/2022 8:00 AM EDT Office [place] [address] Dion Barlow MD [facility] [place] [address] Left sided colitis without complications; Tick bite [...] - CT scan to be arranged at [facility] in [facility] for left [...] Overview Note: ? Colonoscopy 04/08/10 (Dr. Gomes [facility]) - inflammation only within the rectum and sigmoid; extent of the exam was to the hepatic flexure; biopsies proximal to the sigmoid nl ?? Repeat exam 11/27/11 [place] mildly active colitis in [...] Interval History: Last visit with Farideh Mathur POULTRY FARMER MEAT 01/2022 Just had colo with Dr. Turner [...] adenopathy and no thyromegaly. HEENT: PERRL, EOMI, TURNER IN and OP clear without ulceration or lesions. [...] Ref Range Status ??? COLONOSCOPY 03/28/2022 Final Value:[facility] Endoscopy Procedure Date: 03/28/2022 3:15 PM Patient Name: Brian Rodriguez Date of : 1950 Age: 71 Order #: [id number] Instrument Name: [id number] Procedure: Colonoscopy Indications: Follow-up of ulcerative colitis [...] bowel preparation was evaluated using the BBPS (Jasper Bowel Preparation Scale) with scores of: Right [...] referring physician. Procedure Code(s): --- Professional --- 96296, Colonoscopy, flexible; with removal of tumor(s), polyp(s), or other lesion(s) by snare technique 18352, 59, Colonoscopy, flexible; with biopsy, single or multiple CPT copyright 2020 [employer]. All rights reserved. The codes documented in this report are preliminary and upon animal shelter supervisor review may be revised to meet current compliance requirements. Attending Participation: I personally performed the entire procedure. Mona Turner MD Mona Turner MD 03/28/2022 4:33:58 PM This report has been signed electronically. Number of Addenda: 0 Note Initiated On: 03/28/2022 3:15 PM ??? Surgical Pathology Report 03/28/2022 Final Value:[id number] Location: 4T; EA12; A The signing pathologist [...] Christina Verified: 04/03/2022 15:08 Pathologist Performed at: -[facility] Dept. of Pathology, [place], [place] SPECIMEN(S) SUBMITTED A - Sigmoid bx, [...] en toto in 1 cassette labeled C1. [facility] Outpatient Visit on 02/19/2022 Component Date [...] Final Recent endoscopic procedures 06/28/21 EGD ( [facility]): Pre op Dx; Dysphagia Post op [...] would like to have this done in [facility]. He will keep an eye [...] - CT scan to be arranged at [facility] in [facility] for left [...] spent 25 min today counseling the patient [id number] on the issues outlined above and 10 minutes reviewing the chart, preparing for this visit, documenting, and implementing the plan. Davina Barlow MD Bracercommercial sales manager Co-Director, [facility] Section of Gastroenterology [place] [address] documented in this encounter Plan of Treatment Upcoming Encounters Date Type Department Care Team (Late st Contact Info) Description 08/15/2024 9:00 AM EDT Office Visit Gastroenterology at [place] [phone] Dion Barlow MD [facility] [place] [address] 09/01/2024 9:40 AM EDT Office Visit Cardiology at [address] [address] Franky Shaver MD [facility] [place] [address] 09/01/2024 11:20 AM EDT Office Visit Dermatology at [facility] [address] [place] [address] Gómez Mercer MD [facility] DR EDD[place] [address] 09/21/2024 2:45 PM EDT Office Visit [place] [address] Trung Hoyos MD [facility] DR [place] [address] documented as of this encounter Procedures Procedure [...] who have questions please contact the health customer care assistant that requested your imaging first. ? Narrative [...] 8:51 AM EDT) Neutrophil % 68.0 % [facility] Neutrophil Absolute 4.59 1.70 - 6.10 x10(3)/[facility] LABORATORY Lymph % 20.1 % [facility] Lymphocytes Abs 1.4 0.9 - 3.2 x10(3)/[facility] LABORATORY Monocyte % 7.1 % [facility] Monocyte Abs 0.5 0.3 - 0.9 x10(3)/[facility] LABORATORY Eos % 3.8 % [facility] Eosinophils Abs 0.3 0.0 - 0.4 x10(3)/[facility] LABORATORY Basophil % 0.7 % [facility] Baso Absolute 0.0 0.0 - 0.1 x10(3)/[facility] LABORATORY Immature Gran % 0.30 % [facility] Comment: Immature granulocytes(IG's)percentage and absolute count will include metamyelocytes, myelocytes, and promyelocytes. Blood smears from CBCs yielding IG's will be scanned manually for concordance. If this scan disagrees with the automated IG or if promyelocytes are noted, a manual differential will be performed. Immature Gran Absolute 0.02 0.00 - 0.04 x10(3)/[facility] LABORATORY Blood 04/22/2022 8:51 AM EDT 04/22/2022 8:57 AM EDT Narrative Resulting Agency Comment Spec In Lab L Karthik Barlow MD HEMATOLOGY ORDERABLE S [facility] [place] [address] * (ABNORMAL) Hemogram (04/22/2022 8:51 AM EDT) White Blood Cell 6.8 4.0 - 9.5 x10(3)/[facility] LABORATORY Red Blood Cell 3.70(L) 4.58 - 5.54 x10(6)/[facility] LABORATORY Hemoglobin 12.4(L) 13.7 - 16.5 g/dL [facility] Hematocrit 37.5(L) 40.5 - 48.5 % [facility] Mean Cell Volume 101.4(H) 82.9 - 93.1 [facility] LABORATORY Mean Cell Hemoglobin 33.5(H) 27.5 - 32.1 pg [facility] Mean Cell Hemoglobin Concentration 33.1 32.0 - 35.7 g/dL [facility] Platelet 198 145 - 357 x10(3)/[facility] LABORATORY RDW Standard Deviation 45.2(H) 36.0 - 45.0 [facility]ATORY RDW coefficient of variation 12.2 11.4 - 13.8 % [facility] Mean Platelet Volume 11.0 7.6 - 12.9 [facility] LABORATORY NRBC% auto 0.0 % [facility] NRBC Absolute 0.000 0.000 - 0.000 x10(3)/[facility] LABORATORY Blood 04/22/2022 8:51 AM EDT 04/22/2022 8:57 AM EDT Narrative Resulting Agency Comment Spec In Lab L Karthik Barlow MD HEMATOLOGY ORDERABLE S [facility] [place] [address] * (ABNORMAL) Basic Metabolic Panel (non-fasting) (04/22/2022 8:51 AM EDT) Glucose 206(H) 65 - 199 mg/dL [facility] Comment:Diabetes: >=200 mg/d L plus symptoms Blood Urea Nitrogen 21(H) 10 - 20 mg/dL [facility] Creatinine 1.17 0.80 - 1.50 mg/dL [facility] Sodium 141 135 - 145 mmol/L [facility] Potassium 4.6 3.5 - 5.0 mmol/L [facility] Comment: Please note: ??Patients with WBC >100,000 may have falsely elevated Potassium levels. ??For accurate Potassium quantification in these patients send serum separator tube (gold top) for subsequent determinations. ??Contact the Clinical Chemistry Laboratory if there are any questions. Chloride 104 98 - 107 mmol/L [facility] Carbon Dioxide 26 22 - 31 mmol/L [facility] Anion Gap 11 5 - 15 mmol/L [facility] Calcium 10.1 8.5 - 10.5 mg/dL [facility] Est Glomerular Filtration Rate 61 >=60 mL/min/1. 73 m?? [facility] [...] Barlow MD CHEMISTRY ORDERABLES Performing Organization Address [facility]/ZIP Co de Phone Number [facility] [place] [address] * CRP, acute inflammation (04/22/2022 8:51 AM EDT) C-Reactive Protein 3.3 <=4.9 mg/L [facility] Blood 04/22/2022 8:51 AM EDT 04/22/2022 8:57 AM EDT Narrative Resulting Agency Comment Spec In Lab L Karthik Barlow MD CHEMISTRY ORDERABLES Performing Organization Address [facility] Co de Phone Number [facility] [place] [address] * Sedimentation rate (04/22/2022 8:51 AM EDT) Sedimentation Rate Automated 36 3 - 46 mm/hr [facility] [...] MD HEMATOLOGY ORDERABLE S Performing Organization Address [facility] Co de Phone Number [facility] [place] [address] documented in this encounter Visit Diagnoses Diagnosis Left sided colitis without complications Left sided ulcerative (chronic) colitis Tick bite of abdominal wall, initial encounter Gastroesophageal reflux disease, unspecified whether esophagitis present Left sided colitis without complications Left sided ulcerative (chronic) colitis documented in this encounter Care Teams Central Processing Technician Relationship Specialty Start Date End Date Deacon Watters APRN [address] [place] [address] PCP - General Family Medicine 02/17/22 documented as of this encounter
--- OUTSIDE RECORDS SUMMARY | 2024-07-20 13:36 | XMS_ITS | Encounter Summary ---
[place] [address] Care Team Providers Care Water And Sewer Systems Superintendent Name Role Phone Deacon Watters APRN Primary Care Provider +1- [phone] Encounter Details Date Type Department Care Team (Late st Contact Info) Description 12/07/2023 Telephone [place] [phone] Estela Phillips Social History Tobacco Use Types [...] - 12/07/2023 10:47 AM EST Brian Rodriguez [id number] Diagnosis/Indication: UC surveillance Please review patient chart [...] procedure? No You must have a responsible constitution party who will drive you to your procedure, stay on campus for the entire duration of your procedure, and drive you home from your procedure. Who will likely be your armored truck driver for the procedure? *Please Verify [...] 9:00 AM EDT Office [place] [address] Dion Barlow MD [facility] [place] [address] 09/01/2024 9:40 AM EDT Office Visit Cardiology at [address] [phone] Franky Shaver MD [facility] [place] [address] 09/01/2024 11:20 AM EDT Office Visit Dermatology at [facility] [address] [place] [address] Gómez Mercer MD [facility] DR [place] [address] 09/21/2024 2:45 PM EDT Office Visit [place] [address] Trung Hoyos MD [facility] [address] documented as of this encounter Visit Diagnoses Not on filedocumented in this encounter Care Teams Water And Sewer Systems Superintendent Relationship Specialty Start Date End Date Deacon Watters APRN [address] [place] [address] PCP - General Family Medicine 02/17/22 documented as of this encounter
--- OUTSIDE RECORDS SUMMARY | 2024-07-20 13:36 | XMS_ITS | Encounter Summary ---
Author Organization [facility] Address [facility] [place] [address] Care Team Providers Care Siding Stapler Name Role Phone Deacon Watters APRN Primary Care Provider +1- [phone] Encounter Details Date Type Department Care Team (Late st Contact Info) Description 03/28/2022 3:15 PM EDT - 03/28/2022 4:00 PM EDT [place] [address] Mona Turner MD [facility] [address] COLONOSCOPY FLEXIBLE, WITH BX (WRVU 3.56) Social [...] occurs, please contact your Doctor. Please call [phone] before 8pm Mon-Fri with problems, questions or concerns. If you call after 8pm or on weekends, call the Hospital at [phone] and ask to speak to the Map And Chart Mounter production grip and the facial operator will contact that person for you. When should you call for help? Call [phone] anytime you think you may need emergency [...] any problems. Where can you learn more? [facility] View your After Visit Summary and more online at [email or web address] If you would like to provide [...] cost to you. Content Version: 12.2 ?? 3183-7028 [employer]. Care instructions adapted under license by [facility]. If you have questions about a medical condition or this instruction, always ask your healthcare professional. [employer] disclaims any warranty or liability for your [...] 9:00 AM EDT Office [place] [phone] Dion Barlow MD [facility] [place] [address] 09/01/2024 9:40 AM EDT Office Visit Cardiology at [address] [phone] Franky Shaver MD [facility] [place] [address] 09/01/2024 11:20 AM EDT Office Visit Dermatology at [address] [phone] Gómez Mercer MD [facility] DR ED[place] [address] 09/21/2024 2:45 PM EDT Office Visit [facility] [place] [phone] Trung Hoyos MD [facility] [place] [address] documented as of this encounter Procedures Procedure Name Priority Date/Time Associated Diagnosis Comments SURGICAL PATHOLOGY REPORT Routine 03/28/2022 4:22 PM EDT SPECIMEN TO PATHOLOGY Routine 03/28/2022 4:22 PM EDT SPECIMEN TO PATHOLOGY Routine 03/28/2022 4:22 PM EDT SPECIMEN TO PATHOLOGY Routine 03/28/2022 4:22 PM EDT Colonoscopy, Biopsy ([id number]) 03/28/2022 3:30 PM EDT Other ulcerative colitis with rectal bleeding COLONOSCOPY Routine 03/28/2022 3:15 PM EDT documented in this encounter Results * Surgical Pathology Report (03/28/2022 4:22 PM EDT) Final Diagnosis [id number] ? Location: 4T; 12; A The signing [...] Christina Verified: ??04/03/2022 15:08 ??Pathologist Performed at: ??-[facility] Dept. of Pathology, [place], [place] SPECIMEN(S) SUBMITTED A - Sigmoid bx, [...] labeled C1. ??shb 04/03/2022 3:08 PM EDT [facility] GI Biopsy 03/28/2022 4:22 PM EDT 03/28/2022 4:22 PM EDT GI Biopsy 03/28/2022 4:22 PM EDT 03/28/2022 4:22 PM EDT GI Biopsy 03/28/2022 4:22 PM EDT 03/28/2022 4:22 PM EDT Mona Turner MD PATHOLOGY/CYTOLOGY O CEE [facility] [place] [address] * Specimen to Pathology (03/28/2022 4:22 PM EDT) AP Specimen 03/28/2022 4:22 PM EDT 03/28/2022 4:22 PM EDT Narrative [facility] - 03/28/2022 4:22 PM EDT Specimen requisition ordered. ??Separate Pathology report to follow Mona Turner MD PATHOLOGY/CYTOLOGY O CEE [facility] [place] [address] * Specimen to Pathology (03/28/2022 4:22 PM EDT) AP Specimen 03/28/2022 4:22 PM EDT 03/28/2022 4:22 PM EDT Narrative [facility] - 03/28/2022 4:22 PM EDT Specimen requisition ordered. ??Separate Pathology report to follow Mona Turner MD PATHOLOGY/CYTOLOGY O CEE Performing Organization Address [facility] [place] [address] * Specimen to Pathology (03/28/2022 4:22 PM EDT) AP Specimen 03/28/2022 4:22 PM EDT 03/28/2022 4:22 PM EDT Narrative [facility] - 03/28/2022 4:22 PM EDT Specimen requisition ordered. ??Separate Pathology report to follow Mona Turner MD PATHOLOGY/CYTOLOGY O CEE Performing Organization Address [facility] [place] [address] * COLONOSCOPY (03/28/2022 3:15 PM EDT) COLONOSCOPY [facility] Endoscopy Procedure Date: 03/28/2022 3:15 PM ? Patient Name: Brian Rodriguez ? N: [id number] ? Date of : 1950 ? Age: 71 ? Order #: [id number] ? Instrument Name: [id number] ? Procedure: ? Colonoscopy Indications: ? Follow-up of ulcerative colitis Providers: ? Mona Turner MD, April Augustine ? Cristela, RONY, Shay Maynard MD: ?LAnalia Barlow MD, Deacon Dior ? [facility]: ? Midazolam 4 mg IV, Fentanyl [...] ? was evaluated using the BBPS ? ([place] Bowel Preparation Scale) ? with scores of: [...] Procedure Code(s): ? --- Professional --- ? 46243, Colonoscopy, flexible; with ? removal of tumor(s), polyp(s), or ? other lesion(s) by snare technique ? 33999, 59, Colonoscopy, flexible; ? with biopsy, single or multiple CPT copyright 2020 [employer]. All rights reserved. The codes documented in this report are preliminary and upon concrete pipe making machine operator review may be revised to [...] RN) documented in this encounter Care Teams Siding Stapler Relationship Specialty Start Date End Date Deacon Watters, JAZMINE [address] [place] [address] [address] [place] [address] PCP - General Family Medicine 02/17/22 documented as of this encounter
--- OUTSIDE RECORDS SUMMARY | 2024-07-20 13:36 | XMS_ITS | Encounter Summary ---
Author Organization [facility] Address [facility] [place] [address] Care Team Providers Care Inspector Integrated Circuits Name Role Phone Unknown Primary Care Provider Unavailabl e Encounter Details Date Type Department Care Team (Latest Contact Info) Description 08/26/2021 9:30 AM EDT Office [place] [address] Dion Barlow MD [facility] [place] [address] Other ulcerative colitis with rectal bleeding; Left [...] manometry. - Obtain upper endoscopy report from [facility] in June 2021 - Avoid non-steroidal [...] Note: ?? Colonoscopy 04/08/10 (Dr. Gomes [facility]) - inflammation only within the rectum and sigmoid; extent of the exam was to the hepatic flexure; biopsies proximal to the sigmoid nl ?? Repeat exam 11/27/11 ([facility]): mildly active colitis [...] dysphagia to solids. Had an EGD at [facility] in Jun and recalls was normal. [...] manometry. - Obtain upper endoscopy report from [facility] in June 2021 - Avoid non-steroidal anti-inflammatory medications (NSAIDs) including but not limited to Advil, ibuprofen, Motrin, Aleve, Excedrin, naproxen, Mobic, indomethacin, and aspirin. Acetaminophen (Tylenol) is okay for aches and pains. - Follow-up in 6 months - will schedule colonoscopy at that time. I spent 30 min today reviewing the chart preparing for this visit, counseling the patient [id number] on the issues outlined above, and documenting an implementing the plan. Davina Barlow MD Autotransfusionistlooseleaf binder coverer Co-Director, [facility] Section of [place]astroenter[place] [address] documented in this encounter Plan of Treatment Upcoming Encounters Date Type Department Care Team (Late st Contact Info) Description 08/15/2024 9:00 AM EDT Office [place] [address] Dion Barlow MD [facility] [place] [address] 09/01/2024 9:40 AM EDT Office Visit Cardiology at [address] [place] [phone] Franky Shaver MD [facility] [place] [address] 09/01/2024 11:20 AM EDT Office Visit Dermatology at [facility] [address] [place] [phone] Gómez Mercer MD [facility] [place] [address] 09/21/2024 2:45 PM EDT Office Visit [place] [address] Trung Hoyos MD [facility] [place] [address] documented as of this encounter Visit Diagnoses Diagnosis Other ulcerative colitis with rectal bleeding Left sided colitis without complications Left sided ulcerative (chronic) colitis documented in this encounter Care Teams Inspector Integrated Circuits Relationship Specialty Start Date End Date Unknown None PCP - General 08/23/21 02/16/22 documented as of this encounter
--- OUTSIDE RECORDS SUMMARY | 2024-07-20 13:36 | XMS_ITS | Encounter Summary ---
Author Organization [facility] Address [facility] [place] [address] Care Team Providers Care Adhesive Bonding Machine Operator Name Role Phone Deacon Watters APRN Primary Care Provider +1- [phone] Reason for Referral * Consultation (Routine) - Closed Specialty Diagnoses / Procedures Referred By Perri t Referred To Contact Dermatology Diagnoses Basal cell carcinoma (BCC), unspecified site Becca Villegas APRN [address] [place] [address] [place] [address] Kingsley Finn MD [facility] DR EDDIE [place] [address] Referral ID Status Reason Start Date Expiration Date V isits Requested Visits Authorized [id number] Closed Consult, Test & Treat PCP Updated and/or Approved 01/04/2024 01/03/2025 1 1 Encounter Details Date Type Department Care Team (Late st Contact Info) Description 01/04/2024 Transcribe Orders eDH Incoming Referrals [phone] Becca Villegas [address] [place], [place] [phone] Basal cell carcinoma (BCC), unspecified site (Primary [...] 9:00 AM EDT Office Visit [place] [address] Dion Barlow MD [facility] [place] [address] 09/01/2024 9:40 AM EDT Office Visit Cardiology at [address] [phone] Franky Shaver MD [facility] [place] [address] 09/01/2024 11:20 AM EDT Office Visit Dermatology at [address] [place] [phone] Gómez Mercer MD [facility] DR EDD[place] [address] 09/21/2024 2:45 PM EDT Office Visit [facility] [place] [address] Trung Hoyos MD [facility] [place] [address] Scheduled Referrals Name Type Priority Associated Diagnoses Orde r Schedule Referral to Dermatology Outpatient Referral Routine Basal cell carcinoma (BCC), unspecified site Ordered: 01/04/2024 documented as of this encounter Visit Diagnoses Diagnosis Basal cell carcinoma (BCC), unspecified site- Primary documented in this encounter Care Teams Adhesive Bonding Machine Operator Relationship Specialty Start Date End Date Deacon Watters, JAZMINE [address] [place] [address] PCP - General Family Medicine 02/17/22 documented as of this encounter
--- OUTSIDE RECORDS SUMMARY | 2024-07-20 13:36 | XMS_ITS | Encounter Summary ---
Author Organization [facility] Address [facility] [place] [address] Care Team Providers Care Belt And Link Assembly Supervisor Name Role Phone Duong Deacon Wells APRN Primary Care Provider +1- [phone] Encounter Details Date Type Department Care Team (Latest Contact Info) Description 03/28/2022 2:03 PM EDT - 03/28/2022 5:24 PM EDT Hospital Encounter [place] [address] Mona Turner MD [facility] GASTRO[place] [address] Discharge Disposition: Home Social History Tobacco Use [...] occurs, please contact your Doctor. Please call [phone] before 8pm Mon-Fri with problems, questions or concerns. If you call after 8pm or on weekends, call the Hospital at [phone] and ask to speak to the Moccasin Sewer pinion staker and the disposal plant operator will contact that person for you. When should you call for help? Call [phone] anytime you think you may need emergency [...] learn more? [facility] View your After Visit Summary and more online at [email or web address] If you would like to [...] cost to you. Content Version: 12.2 ?? [id number] [employer]. Care instructions adapted under license by [facility]. If you have questions about a medical condition or this instruction, always ask your healthcare professional. [employer] disclaims any warranty or liability for your [...] 9:00 AM EDT Office [place] [phone] Dion Barlow MD [facility] GASTR[place] [address] 09/01/2024 9:40 AM EDT Office Visit Cardiology at [address] [phone] Franky Shaver MD [facility] [place] [address] 09/01/2024 11:20 AM EDT Office Visit Dermatology at [address] [address] Gómez Mercer MD [facility] DR EDDIE SANCHEZ-[place] [address] 09/21/2024 2:45 PM EDT Office Visit [facility] [place] [phone] Trung Hoyos MD [facility] PAIN [place] [address] documented as of this encounter Procedures Procedure Name Priority Date/Time Associated Diagnosis Comments SURGICAL PATHOLOGY REPORT Routine 03/28/2022 4:22 PM EDT SPECIMEN TO PATHOLOGY Routine 03/28/2022 4:22 PM EDT SPECIMEN TO PATHOLOGY Routine 03/28/2022 4:22 PM EDT SPECIMEN TO PATHOLOGY Routine 03/28/2022 4:22 PM EDT Colonoscopy, Biopsy ([id number]) 03/28/2022 3:30 PM EDT Other ulcerative colitis with rectal bleeding COLONOSCOPY Routine 03/28/2022 3:15 PM EDT documented in this encounter Results * Surgical Pathology Report (03/28/2022 4:22 PM EDT) Final Diagnosis [id number] ? Location: 4T; EA12; A The signing [...] Christina Verified: ??04/03/2022 15:08 ??Pathologist Performed at: ??-[facility] Dept. of Pathology, [place], [place] SPECIMEN(S) SUBMITTED A - Sigmoid bx, [...] labeled C1. ??shb 04/03/2022 3:08 PM EDT [facility] GI Biopsy 03/28/2022 4:22 PM EDT 03/28/2022 4:22 PM EDT GI Biopsy 03/28/2022 4:22 PM EDT 03/28/2022 4:22 PM EDT GI Biopsy 03/28/2022 4:22 PM EDT 03/28/2022 4:22 PM EDT Mona Turner MD PATHOLOGY/CYTOLOGY O CEE [facility] [place] [address] * Specimen to Pathology (03/28/2022 4:22 PM EDT) AP Specimen 03/28/2022 4:22 PM EDT 03/28/2022 4:22 PM EDT Narrative [facility] - 03/28/2022 4:22 PM EDT Specimen requisition ordered. ??Separate Pathology report to follow Mona Turner MD PATHOLOGY/CYTOLOGY O CEE [facility] [place] [address] * Specimen to Pathology (03/28/2022 4:22 PM EDT) AP Specimen 03/28/2022 4:22 PM EDT 03/28/2022 4:22 PM EDT Narrative [facility] - 03/28/2022 4:22 PM EDT Specimen requisition ordered. ??Separate Pathology report to follow Mona Turner MD PATHOLOGY/CYTOLOGY O CEE Performing Organization Address [facility] [place] [address] * Specimen to Pathology (03/28/2022 4:22 PM EDT) AP Specimen 03/28/2022 4:22 PM EDT 03/28/2022 4:22 PM EDT Narrative [facility] - 03/28/2022 4:22 PM EDT Specimen requisition ordered. ??Separate Pathology report to follow Mona Turner MD PATHOLOGY/CYTOLOGY Ozzie MIKE Performing Organization Address [facility] [place] [address] * COLONOSCOPY (03/28/2022 3:15 PM EDT) COLONOSCOPY [facility] Endoscopy Procedure Date: 03/28/2022 3:15 PM ? Patient Name: Brian Rodriguez ? Date of : 1950 ? Age: 71 ? Order #: [id number] ? Instrument Name: [id number] ? Procedure: ? Colonoscopy Indications: ? Follow-up of ulcerative colitis Providers: ? Mona Turner MD, April Augustine ? RONY Archibald, Shay Maynard MD: ?Davina Barlow MD, Deacon Dior ? [facility]: ? Midazolam 4 mg IV, [...] ? was evaluated using the BBPS ? ([place] Bowel Preparation Scale) ? with scores of: [...] Procedure Code(s): ? --- Professional --- ? 24855, Colonoscopy, flexible; with ? removal of tumor(s), polyp(s), or ? other lesion(s) by snare technique ? 75901, 59, Colonoscopy, flexible; ? with biopsy, single or multiple CPT copyright 2020 [employer]. All rights reserved. The codes documented in this report are preliminary and upon churn tender review may be revised to meet current compliance requirements. Attending Participation: ? I personally performed the entire procedure. ? Mona Turner MD _ Mona Turner MD 03/28/2022 4:33:58 PM This report has been signed electronically. Number of Addenda: 0 Note Initiated On: 03/28/2022 3:15 PM PROVATION 03/28/2022 3:15 PM EDT Deacon Watters TRANSPORTATION SERVICES REPRESENTATIVE GENERAL SURGICAL O RDERABLES Performing Organization Address City/State/[facility] Co de Phone Number PROVATION documented [...] RN) documented in this encounter Care Teams Belt And Link Assembly Supervisor Relationship Specialty Start Date End Date Deacon Watters, TRANSPORTATION SERVICES REPRESENTATIVE [address] [place] [address] [address] [place] [address] PCP - General Family Medicine 02/17/22 documented as of this encounter
--- OUTSIDE RECORDS SUMMARY | 2024-07-20 13:36 | XMS_ITS | Encounter Summary ---
Author Organization [facility] Address [facility] [place] [address] Care Team Providers Care Senior Medical Transcriptionist Name Role Phone Duong Deacon Wells APRN Primary Care Provider +1- [phone] Encounter Details Date Type Department Care Team (Latest Contact Info) Description 12/07/2023 8:00 AM EST Office [place] [address] Dion Barlow MD [facility] [place] [address] Left sided colitis without complications Social History [...] the next approximately eight weeks, please call [phone] to schedule the exam. 5. Repeat routine labs today. 6. Follow-up at the time of colonoscopy and in the office with Farideh Weinberg APRN in about 6-8 months. documented in this encounter Progress Notes * Dion Barlow MD - 12/07/2023 8:00 AM EST Images from the original note were not included. [facility] IBD PROGRAM ESTABLISHED PATIENT VISIT Patient Active Problem List Diagnosis Ulcerative colitis Overview Note: Colonoscopy 04/08/10 (Dr. Gomes [facility]) - inflammation only within the rectum and sigmoid; extent of the exam was to the hepatic flexure; biopsies proximal to the sigmoid nl Repeat exam 11/27/11 ([facility]): mildly active colitis in [...] ascending colon. Several HPs and one TA. [place] 03/2022 - [place] 1 limited to rectosigmoid, [...] bladder. Was referred to his urologist at [facility]. He reports that he has [...] for further details re current symptoms. - [facility] Gastro Pre-Visit Questionnaire 12/07/2023 7:54 AM [...] varicosities in both legs HEENT: PERRL, EOMI, BONDED STRUCTURES REPAIRER and OP clear without ulceration or lesions. LUNGS: Clear to auscultation bilaterally. COR: Regular, normal S1 and S2 without murmurs ABD: Normal active bowel sounds. Soft and non-distended. Mild tenderness to deep palpation in the left lower quadrant more than the right lower quadrant EXT: Trace bilateral edema. Laboratory studies, imaging, and procedures (my review of prior records): Labs reviewed from [facility] 01/2023. CBC stable. Creatinine 1.6. [...] neighbor. He is to follow-up with his stonework tracer, Deacon Watters APRN, in early December. Also [...] the next approximately 8 weeks, please call [phone] to schedule the exam. 5. Repeat routine labs today. 6. Follow-up at the time of colonoscopy and in the office with Farideh Weinberg APRN in about 6-8 months. Davina Barlow MD [employer] Supervisortrash collector truck driver Co-Director, [facility] Section of Gastroenterology [place] [address] documented in this encounter Plan of Treatment Upcoming Encounters Date Type Department Care Team (Late st Contact Info) Description 08/15/2024 9:00 AM EDT Office [place] [address] Dion Barlow MD [facility] [place] [address] 09/01/2024 9:40 AM EDT Office Visit Cardiology at [address] [place] [phone] Franky Shaver MD [facility] [place] [address] 09/01/2024 11:20 AM EDT Office Visit Dermatology at [facility] [address] [place] [address] Gómez Mercer MD [facility] [place] [address] 09/21/2024 2:45 PM EDT Office Visit [facility] [place] [phone] Trung Hoyos MD [facility] [place] [address] Scheduled Orders Name Type Priority Associated Diagnoses [...] 8:53 AM EST) Neutrophil % 70.6 % [facility] Neutrophil Absolute 4.29 1.70 - 6.10 x10(3)/[facility] Lymph % 20.4 % [facility] Lymphocytes Abs 1.2 0.9 - 3.2 x10(3)/[facility] Monocyte % 5.9 % [facility] Monocyte Abs 0.4 0.3 - 0.9 x10(3)/[facility] Eos % 2.1 % [facility] Eosinophils Abs 0.1 0.0 - 0.4 x10(3)/[facility] Basophil % 0.7 % [facility] Baso Absolute 0.0 0.0 - 0.1 x10(3)/[facility] Immature Gran % 0.30 % [facility] Comment: Immature granulocytes(IG's)percentage and absolute count will include metamyelocytes, myelocytes, and promyelocytes. Blood smears from CBCs yielding IG's will be scanned manually for concordance. If this scan disagrees with the automated IG or if promyelocytes are noted, a manual differential will be performed. Immature Gran Absolute 0.02 0.00 - 0.04 x10(3)/[facility] Blood 12/07/2023 8:53 AM EST 12/07/2023 9:03 AM EST Narrative Resulting Agency Comment Spec In Lab L Karthik Barlow MD HEMATOLOGY ORDERABLE S [facility] [place] [address] * (ABNORMAL) Hemogram (12/07/2023 8:53 AM EST) White Blood Cell 6.1 4.0 - 9.5 x10(3)/mc L [facility] Red Blood Cell 3.87(L) 4.58 - 5.54 x10(6)/mc L [facility] Hemoglobin 12.8(L) 13.7 - 16.5 g/dL [facility] Hematocrit 37.5(L) 40.5 - 48.5 % [facility] Mean Cell Volume 96.9(H) 82.9 - 93.1 fL [facility] Mean Cell Hemoglobin 33.1(H) 27.5 - 32.1 pg [facility] Mean Cell Hemoglobin Concentration 34.1 32.0 - 35.7 g/dL [facility] Platelet 199 145 - 357 x10(3)/mc L [facility] RDW Standard Deviation 44.2 36.0 - 45.0 fL [facility] RDW coefficient of variation 12.6 11.4 - 13.8 % [facility] Mean Platelet Volume 11.2 7.6 - 12.9 fL [facility] NRBC% auto 0.0 % [facility] NRBC Absolute 0.000 0.000 - 0.000 x10(3)/[facility] Blood 12/07/2023 8:53 AM EST 12/07/2023 9:03 AM EST Narrative Resulting Agency Comment Spec In Lab L Karthik Barlow MD HEMATOLOGY ORDERABLE S [facility] [place] [address] * CRP, acute inflammation (12/07/2023 8:53 AM EST) C-Reactive Protein <3.0 <=4.9 mg/L [facility] Blood 12/07/2023 8:53 AM EST 12/07/2023 9:03 AM EST Narrative Resulting Agency Comment Spec In Lab L Karthik Barlow MD CHEMISTRY ORDERABLES [facility] [place] [address] * (ABNORMAL) Comprehensive metabolic panel (non-fasting) (12/07/2023 8:53 AM EST) Glucose 140 65 - 199 mg/dL [facility] Comment:Diabetes: >=200 mg/d L plus symptoms Blood Urea Nitrogen 12 10 - 20 mg/dL [facility] Creatinine 1.05 0.80 - 1.50 mg/dL [facility] Sodium 144 135 - 145 mmol/L [facility] Potassium 4.0 3.5 - 5.0 mmol/L [facility] Comment: Please note: ??Patients with WBC >100,000 may have falsely elevated Potassium levels. ??For accurate Potassium quantification in these patients send serum separator tube (gold top) for subsequent determinations. ??Contact the Clinical Chemistry Laboratory if there are any questions. Chloride 109(H) 98 - 107 mmol/L [facility] Carbon Dioxide 24 22 - 31 mmol/L [facility] Anion Gap 11 5 - 15 mmol/L [facility] Calcium 9.5 8.5 - 10.5 mg/dL [facility] Protein, Total 7.8 6.1 - 8.0 g/dL [facility] Albumin 4.2 3.2 - 5.2 g/dL [facility] Aspartate Aminotransferase 13 0 - 39 unit/L [facility] Alanine Aminotransferase 15 0 - 55 unit/L [facility] Alkaline Phosphatase 77 40 - 130 unit/L [facility] Bilirubin, Total 0.4 0.2 - 1.3 mg/dL [facility] Est Glomerular Filtration Rate 74 >=60 mL/min/1. 73 m?? [facility] Comment: This patient's estimated GFR was [...] Lab L Karthik Barlow MD [place] [address] documented in this encounter Visit Diagnoses Diagnosis Left sided colitis without complications Left sided ulcerative (chronic) colitis documented in this encounter Care Teams Senior Medical Transcriptionist Relationship Specialty Start Date End Date Deacon Watters, HULL OUTFIT SUPERVISOR [address] [place] [address] PCP - General Family Medicine 02/17/22 documented as of this encounter
--- OUTSIDE RECORDS SUMMARY | 2024-07-20 13:36 | XMS_ITS | Encounter Summary ---
Author Organization [facility] Address [facility] [place] [address] Care Team Providers Care Metal Coater Operator Name Role Phone DuongVeliakip Wells APRN Primary Care Provider [phone]- [phone] Encounter Details Date Type Department Care Team (Late st Contact Info) Description 02/26/2022 Orders [place] [phone] Dianna Shen, RN Other ulcerative colitis with [...] EDT Office [place] [phone] Dion Barlow MD [facility] [place] [address] 09/01/2024 9:40 AM EDT Office Visit Cardiology at [address] [phone] Franky Shaver MD [facility] [place] [address] 09/01/2024 11:20 AM EDT Office Visit Dermatology at [facility] [address] [place] [address] Gómez Mercer MD [facility] [place] [address] 09/21/2024 2:45 PM EDT Office Visit [place] [phone] Trung Hoyos MD [facility] [place] [address] documented as of this encounter Results * CRP, acute inflammation (09/29/2022 12:09 PM EST) Pathologist [facility] C-Reactive Protein <3.0 <=4.9 mg/L [facility] Blood 09/29/2022 12:0 9 PM EST 09/29/2022 12:15 PM EST Narrative Resulting Agency Comment Spec In Lab Marcelle Weinberg HUMAN RESOURCES ASSISTANT MANAGER CHEMISTRY ORDERAB LES [facility] [place] [address] * Sedimentation rate (09/29/2022 12:09 PM EST) [...] Spec In Lab Marcelle Weinberg HUMAN RESOURCES ASSISTANT MANAGER HEMATOLOGY ORDERA BLES [facility] [place] [address] documented in this encounter Visit Diagnoses Diagnosis Other ulcerative colitis with rectal bleeding documented in this encounter Care Teams Metal Coater Operator Relationship Specialty Start Date End Date Deacon Watters APRN [address] [place] [address] PCP - General Family Medicine 02/17/22 documented as of this encounter
--- OUTSIDE RECORDS SUMMARY | 2024-07-20 13:36 | XMS_ITS | Encounter Summary ---
Author Organization [facility] Address [facility] [place] [address] Care Team Providers Care Recovery Auditor Name Role Phone Josue Wilkinson MD Primary Care Provider [phone] Encounter Details Date Type Department Care Team (Late st Contact Info) Description 04/30/2021 Telephone [place] [phone] Marcelle Weinberg APRN [facility] [place] [address] Social History Tobacco Use Types Packs/Day Years [...] 9:00 AM EDT Office [place] [phone] Dion Barlow MD [facility] [place] [address] 09/01/2024 9:40 AM EDT Office Visit Cardiology at [address] [address] Franky Shaver MD [facility] [place] [address] 09/01/2024 11:20 AM EDT Office Visit Dermatology at [address] [address] Gómez Mercer MD [facility] DR EDDIE SANCHEZ-DERMATOLOGY [place], [place] [phone] 09/21/2024 2:45 PM EDT Office Visit [place] [address] Trung Hoyos MD [facility] [place] [address] documented as of this encounter Results * Vitamin B12 (05/31/2021 1:49 PM EDT) Vitamin B12 389 232 - 1,245 pg/mL [facility] Blood 05/31/2021 1:49 PM EDT 05/31/2021 1:52 PM EDT Narrative Resulting Agency Comment Spec In Lab Marcelle Weinberg PLASTER HELPER CHEMISTRY ORDERAB LES [facility] [place] [address] * Iron and TIBC (05/31/2021 1:49 PM EDT) Iron 86 45 - 160 mcg/dL [facility] TIBC 286 250 - 450 mcg/dL [facility] Iron Saturation 30 20 - 50 % [facility] Blood 05/31/2021 1:49 PM EDT 05/31/2021 1:52 PM EDT Narrative Resulting Agency Comment Spec In Lab Marcelle Dunnjeovannyjania PLASTER HELPER CHEMISTRY ORDERAB LES [facility] [place] [address] * Ferritin (05/31/2021 1:49 PM EDT) Ferritin 94 30 - 400 ng/mL [facility] Comment: Pediatric reference ranges not verified at [facility], interpret with caution. Reference ranges for females greater than 50 years of age approach values for men, i.e., 30-400 ng/mL. Blood 05/31/2021 1:49 PM EDT 05/31/2021 1:52 PM EDT Narrative Resulting Agency Comment Spec In Lab Marcelle Dunnjeovannyv PLASTER HELPER CHEMISTRY ORDERAB LES [facility] [place] [address] documented in this encounter Visit Diagnoses Diagnosis Left sided colitis without complications Left sided ulcerative (chronic) colitis documented in this encounter Care Teams Recovery Auditor Relationship Specialty Start Date End Date Josue Wilkinson MD PCP - General General Internal Medicine 02/14/2107/26 documented as of this encounter
--- OUTSIDE RECORDS SUMMARY | 2024-07-20 13:36 | XMS_ITS | Encounter Summary ---
[place] [address] Care Team Providers Care Nanoelectronics Engineer Name Role Phone Deacon Watters APRN Primary Care Provider [phone]- [phone] Encounter Details Date Type Department Care Team (Late st Contact Info) Description 05/05/2022 Telephone [place] [phone] Dianna Shen RN Social History Tobacco Use [...] - 05/23/2022 8:27 AM EDT Marbella from [facility] called to check on the status of this CT she can be reached at [phone]. * Telephone Encounter - Dianna Shen RN - 05/19/2022 11:04 AM EDT 05/16 TC to Brian to see where is at as far as abdominal pain. He states that pain has not improved. Asked if he has metal in his body and he states that he does. * Telephone Encounter - Dianna Shen RN - 05/05/2022 4:20 PM EDT left from radiology at [facility]. Due to contrast shortage, contrast IV is not being utilized for outpatient at their facility. They could schedule CT with oral only. Otherwise they are booking out to August for patients who need IV contrast. documented in this encounter Plan of Treatment Upcoming Encounters Date Type Department Care Team (Late st Contact Info) Description 08/15/2024 9:00 AM EDT Office [place] [address] Dion Barlow MD [facility] [place] [address] 09/01/2024 9:40 AM EDT Office Visit Cardiology at [address] [address] Franky Shaver MD [facility] [place] [address] 09/01/2024 11:20 AM EDT Office Visit Dermatology at [address] [place] [address] Gómez Mercer MD [facility] DR EDDIE [place] [address] 09/21/2024 2:45 PM EDT Office Visit Pain and Spine Center at [facility] [place] [address] Trung Hoyos MD [facility] [place] [address] documented as of this encounter Visit Diagnoses Not on filedocumented in this encounter Care Teams Nanoelectronics Engineer Relationship Specialty Start Date End Date Deacon Watters, JAZMINE [address] [place] [address] PCP - General Family Medicine 02/17/22 documented as of this encounter
--- OUTSIDE RECORDS SUMMARY | 2024-07-20 13:36 | XMS_ITS | Encounter Summary ---
[place] [address] Care Team Providers Care Commissary Agent Name Role Phone Deacon Watters APRN Primary Care Provider [phone]- [phone] Encounter Details Date Type Department Care Team (Latest Contact Info) Description 02/19/2022 10:52 AM EDT - 02/19/2022 11:59 PM EDT Hospital [place] [address] Other ulcerative colitis with rectal bleeding Discharge [...] EDT Office [place] [address] Dion Barlow MD [facility] [place] [address] 09/01/2024 9:40 AM EDT Office Visit Cardiology at [address] [place] [address] Franky Shaver MD [facility] [place] [address] 09/01/2024 11:20 AM EDT Office Visit Dermatology at [facility] [address] [place] [address] Gómez Mercer MD [facility] DR EDDIE [place] [address] 09/21/2024 2:45 PM EDT Office Visit [place] [phone] Trung Hoyos MD [facility] [place] [address] documented as of this encounter Procedures Procedure Name Priority Date/Time Associated Diagnosis Comments HC FECAL CALPROTECTIN Routine 02/19/2022 8:00 AM EDT Other ulcerative colitis with rectal bleeding documented in this encounter Results * Calprotectin, Stool (02/19/2022 8:00 AM EDT) Calprotectin, Stool 55 <=79 mcg/g [facility] Comment: Calprotectin Concentration ? Interpretation ? < 80 mcg/g ?Normal ? 80 ? 160 mcg/g ?Borderline ? >160 mcg/g ?Elevated Stool 02/19/2022 8:00 AM EDT 02/19/2022 11:25 AM EDT Narrative Resulting Agency Comment Spec In Lab Monalisa C Dragnev DIRECTOR CORPORATE SECURITY BODY FLUIDS AND S TOOLS ORDERABLES Performing Organization Address [facility] Co de Phone Number [facility] [place] [address] documented in this encounter Visit Diagnoses Diagnosis Other ulcerative colitis with rectal bleeding documented in this encounter Additional Health Concerns Infection Onset Date Last Indicated Resolved Time Rule Out C. difficile 02/19/2022 02/19/20222021 11:33 AM EDT documented as of this encounter Care Teams Commissary Agent Relationship Specialty Start Date End Date Deacon Watters APRN [address] [place] [address] PCP - General Family Medicine 02/17/22 documented as of this encounter
--- OUTSIDE RECORDS SUMMARY | 2024-07-20 13:36 | XMS_ITS | Encounter Summary ---
Author Organization [facility] [place] [address] Care Team Providers Care Degreaser Name Role Phone Deacon Watters JAZMINE Primary Care Provider +1- [phone] Reason for Visit * Reason Onset Date Comments Medication Refill 08/22/2022 Encounter Details Date Type Department Care Team (Late st Contact Info) Description 08/22/2022 [place] [phone] Dion Barlow MD [facility] [place] [address] Social History Tobacco Use Types Packs/Day Years [...] 9:00 AM EDT Office [place] [phone] Dion Barlow MD [facility] [place] [address] 09/01/2024 9:40 AM EDT Office Visit Cardiology at [address] [place] [address] Franky Shaver MD [facility] [place] [address] 09/01/2024 11:20 AM EDT Office Visit Dermatology at [facility] [address] [place] [address] Gómez Mercer MD [facility] [place] [address] 09/21/2024 2:45 PM EDT Office Visit [place] [address] Trung Hoyos MD [facility] [place] [address] documented as of this encounter Visit Diagnoses Not on filedocumented in this encounter Care Teams Degreaser Relationship Specialty Start Date End Date Deacon Watters, INSPECTOR PLUMBING [address] [place] [address] PCP - General Family Medicine 02/17/22 documented as of this encounter
--- OUTSIDE RECORDS SUMMARY | 2024-07-20 13:36 | XMS_ITS | Encounter Summary ---
Author Organization [facility] [place] [address] Care Team Providers Care Neurosurgical Nurse Practitioner Name Role Phone Deacon Watters APRN Primary Care Provider +1- [phone] Encounter Details Date Type Department Care Team (Late st Contact Info) Description 10/06/2022 Telephone [place] [address] Marcelle Weinberg VICE PRESIDENT SAFETY [facility] [place] [address] Social History Tobacco Use Types Packs/Day Years [...] of this CT to Paula Alonso ( [facility]) and he would also give her office a call. documented in this encounter Plan of Treatment Upcoming Encounters Date Type Department Care Team (Late st Contact Info) Description 08/15/2024 9:00 AM EDT Office Visit [place] [address] Dion Barlow MD [facility] [place] [address] 09/01/2024 9:40 AM EDT Office Visit Cardiology at [address] [address] Franky Shaver MD [facility] [place] [address] 09/01/2024 11:20 AM EDT Office Visit Dermatology at [facility] [address] [place] [address] Gómez Mercer MD [facility] DR EDDIE [place] [address] 09/21/2024 2:45 PM EDT Office Visit [facility] [place] [address] Trung Hoyos MD [facility] [place] [address] documented as of this encounter Visit Diagnoses Not on filedocumented in this encounter Care Teams Neurosurgical Nurse Practitioner Relationship Specialty Start Date End Date Deacon Watters, VICE PRESIDENT SAFETY [address] [place] [address] PCP - General Family Medicine 02/17/22 documented as of this encounter
--- OUTSIDE RECORDS SUMMARY | 2024-07-20 13:36 | XMS_ITS | Encounter Summary ---
Author Organization [facility] Address [facility] [place] [address] Care Team Providers Care Crusher Feeder Name Role Phone Deacon Watters APRN Primary Care Provider +1- [phone] Encounter Details Date Type Department Care Team (Late st Contact Info) Description 02/17/2022 9:30 AM EDT Office Visit [place] [address] Marcelle Weinberg BRINE PURIFIER [facility] [place] [address] Other ulcerative colitis with rectal bleeding Social [...] Overview Note: ? Colonoscopy 04/08/10 ([facility] Final Recent endoscopic procedures 06/28/21 EGD ( [facility]): Pre op Dx; Dysphagia Post op [...] Disease Center Section of Gastroenterology and Hepatology [address] [address] documented in this encounter Plan of Treatment Upcoming Encounters Date Type Department Care Team (Late st Contact Info) Description 08/15/2024 9:00 AM EDT Office Visit [place] [address] Dion Barlow MD [facility] [place] [address] 09/01/2024 9:40 AM EDT Office Visit Cardiology at [address] [place] [address] Franky Shaver MD [facility] [place] [address] 09/01/2024 11:20 AM EDT Office Visit Dermatology at [facility] [address] [place] [address] Gómez Mercer MD [facility] DR EDDIE [place] [address] 09/21/2024 2:45 PM EDT Office Visit Pain and Spine Center at [facility] [place] [address] Trung oHyos MD [facility] [place] [address] Scheduled Orders Name Type Priority Associated Diagnoses [...] Comment Spec In Lab Marcelle Conte Dragwill BRINE PURIFIER BODY FLUIDS AND S TOOLS ORDERABLES Performing Organization Address City/State/[facility] Co de Phone Number [facility] [place] [address] * (ABNORMAL) Differential, Automated (02/17/2022 10:40 AM EDT) Neutrophil % 65.7 % [facility] Neutrophil Absolute 4.53 1.70 - 6.10 x10(3)/mc L [facility] Lymph % 22.8 % [facility] Lymphocytes Abs 1.6 0.9 - 3.2 x10(3)/mc L [facility] Monocyte % 7.3 % [facility] Monocyte Abs 0.5 0.3 - 0.9 x10(3)/mc L [facility] Eos % 2.6 % [facility] Eosinophils Abs 0.2 0.0 - 0.4 x10(3)/mc L [facility] Basophil % 0.6 % [facility] Baso Absolute 0.0 0.0 - 0.1 x10(3)/mc L [facility] Immature Gran % 1.00 % [facility] Comment: Immature granulocytes(IG's)percentage and absolute count will include metamyelocytes, myelocytes, and promyelocytes. Blood smears from CBCs yielding IG's will be scanned manually for concordance. If this scan disagrees with the automated IG or if promyelocytes are noted, a manual differential will be performed. Immature Gran Absolute 0.07(H) 0.00 - 0.04 x10(3)/ L [facility] Blood 02/17/2022 10:4 0 AM EDT 02/17/2022 10:50 AM EDT Narrative Resulting Agency Comment Spec In Lab Marcelle Conte Dg Weinberg BRINE PURIFIER HEMATOLOGY ORDERA BLES [facility] [place] [address] * (ABNORMAL) Hemogram (02/17/2022 10:40 AM EDT) White Blood Cell 6.9 4.0 - 9.5 x10(3)/[facility] Red Blood Cell 3.58(L) 4.58 - 5.54 x10(6)/ L [facility] Hemoglobin 11.5(L) 13.7 - 16.5 g/dL [facility] Hematocrit 35.1(L) 40.5 - 48.5 % [facility] Mean Cell Volume 98.0(H) 82.9 - 93.[address] [facility] Mean Cell Hemoglobin 32.1 27.5 - 32.[address] [facility] Mean Cell Hemoglobin Concentration 32.8 32.0 - 35.7 g/dL [facility] Platelet 220 145 - 357 x10(3)/ L [facility] RDW Standard Deviation 44.3 36.0 - 45.0 [facility] RDW coefficient of variation 12.3 11.4 - 13.8 % [facility] Mean Platelet Volume 10.5 7.6 - 12.9 [facility] NRBC% auto 0.0 % [facility] NRBC Absolute 0.000 0.000 - 0.000 x10(3)/mc L [facility] Blood 02/17/2022 10:4 0 AM EDT 02/17/2022 10:50 AM EDT Narrative Resulting Agency Comment Spec In Lab Marcelle Weinberg BRINE PURIFIER HEMATOLOGY ORDERA BLES Performing Organization Address City/[facility]/ZIP Co de Phone Number [facility] [place] [address] * (ABNORMAL) CRP, acute inflammation (02/17/2022 10:40 AM EDT) C-Reactive Protein 5.0(H) <=4.9 mg/L [facility] Blood 02/17/2022 10:4 0 AM EDT 02/17/2022 10:50 AM EDT Narrative Resulting Agency Comment Spec In Lab Marcelle Dunnjeovannyjania BRINE PURIFIER CHEMISTRY ORDERAB LES Performing Organization Address [facility] Co de Phone Number [facility] [place] [address] * (ABNORMAL) Sedimentation rate (02/17/2022 10:40 AM EDT) [facility] Sedimentation Rate Automated 64(H) 3 - 46 mm/hr [facility] Comment: Effective November 02, 2019 new capillary photometric technology has resulted in a change in reference ranges. It is recommended that each ESR result be reviewed with its own age appropriate reference range. Blood 02/17/2022 10:4 0 AM EDT 02/17/2022 10:50 AM EDT Narrative Resulting Agency Comment Spec In Lab Marcelle Weinberg BRINE PURIFIER HEMATOLOGY ORDERA BLES Performing Organization Address [facility]/ZIP Co de Phone Number [facility] [place] [address] * Comprehensive metabolic panel (non-fasting) (02/17/2022 10:40 AM EDT) Glucose 94 65 - 199 mg/dL [facility] Comment:Diabetes: >=200 mg/d L plus symptoms Blood Urea Nitrogen 14 10 - 20 mg/dL [facility] Creatinine 1.06 0.80 - 1.50 mg/dL [facility] Sodium 144 135 - 145 mmol/L [facility] Potassium 3.9 3.5 - 5.0 mmol/L [facility] Comment: Please note: ??Patients with WBC >100,000 may have falsely elevated Potassium levels. ??For accurate Potassium quantification in these patients send serum separator tube (gold top) for subsequent determinations. ??Contact the Clinical Chemistry Laboratory if there are any questions. Chloride 107 98 - 107 mmol/L [facility] Carbon Dioxide 26 22 - 31 mmol/L [facility] Anion Gap 11 5 - 15 mmol/L [facility] Calcium 9.7 8.5 - 10.5 mg/dL [facility] Protein, Total 8.0 6.1 - 8.0 g/dL [facility] Albumin 4.3 3.2 - 5.2 g/dL [facility] Aspartate Aminotransferase 10 0 - 39 unit/L [facility] Alanine Aminotransferase 17 0 - 55 unit/L [facility] Alkaline Phosphatase 78 40 - 130 unit/L [facility] Bilirubin, Total 0.4 0.2 - 1.3 mg/dL [facility] Est Glomerular Filtration Rate 69 >=60 mL/min/1. 73 m?? [facility] Comment: This patient? s estimated [...] Agency Comment Spec In Lab Marcelle Weinberg BRINE PURIFIER CHEMISTRY ORDERAB LES Performing Organization Address City/State/[facility] Co de Phone Number [facility] [place] [address] documented in this encounter Visit Diagnoses Diagnosis Other ulcerative colitis with rectal bleeding documented in this encounter Care Teams Crusher Feeder Relationship Specialty Start Date End Date Deacon Watters APRN [address] [place] [address] PCP - General Family Medicine 02/17/22 documented as of this encounter
--- OUTSIDE RECORDS SUMMARY | 2024-07-20 13:36 | XMS_ITS | Encounter Summary ---
Author Organization [facility] [place] [address] Care Team Providers Care Automobile Mechanic Radiator Name Role Phone Deacon Watters APRN Primary Care Provider +1- [phone] Encounter Details Date Type Department Care Team (Late st Contact Info) Description 11/20/2022 [place] [address] Jarret Roa RN Social History Tobacco Use [...] 9:00 AM EDT Office [place] [address] Dion Barlow MD [facility] [place] [address] 09/01/2024 9:40 AM EDT Office Visit Cardiology at [address] [place] [address] Franky Shaver MD [facility] [place] [address] 09/01/2024 11:20 AM EDT Office Visit Dermatology at [facility] [address] [place] [address] Gómez Mercer MD [facility] [place] [address] 09/21/2024 2:45 PM EDT Office Visit [place] [address] Trung Hoyos MD [facility] [place] [address] documented as of this encounter Visit Diagnoses Not on filedocumented in this encounter Care Teams Automobile Mechanic Radiator Relationship Specialty Start Date End Date Deacon Watters APRN [address] [place] [address] [address] [place] [address] PCP - General Family Medicine 02/17/22 documented as of this encounter
--- OUTSIDE RECORDS SUMMARY | 2024-07-20 13:36 | XMS_ITS | Encounter Summary ---
[place] [address] Care Team Providers Care Supervisor Shuttle Fitting Name Role Phone Deacon Watters APRN Primary Care Provider +1- [phone] Reason for Referral * Consultation (Routine) - Closed Specialty Diagnoses / Procedures Referred By Contwillard t Referred To Contact Pain and Spine Center Diagnoses Cervicalgia Other chronic pain chronic neck pain/MRI 10/27/23 @ [facility] Deacon Watters APRN [address] [place] [address] [facility] [place] [address] Referral ID Status Reason Start Date Expiration Date V isits Requested Visits Authorized [id number] Closed Consult, Test & Treat PCP Updated and/or Approved 11/11/2023 05/10/2024 1 1 Encounter Details Date Type Department Care Team (Late st Contact Info) Description 11/18/2023 Transcribe Orders eD Incoming Referrals [phone] Deacon Watters APRN [address] [place], [place] [address] Cervicalgia; Other chronic pain Social History Tobacco [...] 9:00 AM EDT Office [place] [address] Dion Barlow MD [facility] [place] [address] 09/01/2024 9:40 AM EDT Office Visit Cardiology at [address] [address] Franky Shaver MD [facility] [place] [address] 09/01/2024 11:20 AM EDT Office Visit Dermatology at [place] [address] [place] [address] Gómez Mercer MD [facility] DR EDDIE [place] [address] 09/21/2024 2:45 PM EDT Office Visit [place] [address] Trung Hoyos MD [facility] [place] [address] Scheduled Referrals Name Type Priority Associated Diagnoses Orde r Schedule Referral to Spine Center Outpatient Referral Routine Cervicalgia Other chronic pain Ordered: 11/18/2023 documented as of this encounter Visit Diagnoses Diagnosis Cervicalgia Other chronic pain documented in this encounter Care Teams Supervisor Shuttle Fitting Relationship Specialty Start Date End Date Deacon Watters, SPD TECH [address] [place] [address] PCP - General Family Medicine 02/17/22 documented as of this encounter
--- OUTSIDE RECORDS SUMMARY | 2024-07-20 13:36 | XMS_ITS | Encounter Summary ---
[place] [address] Care Team Providers Care Tank Farm Attendant Name Role Phone Deacon Watters APRN Primary Care Provider +1- [phone] Encounter Details Date Type Department Care Team (Late st Contact Info) Description 02/26/2022 Telephone [place] [address] Dianna Shen RN Social History Tobacco Use [...] Brian reminding him to get labs. Called [facility] and they had not been done yet. * Telephone Encounter - Dianna Shen RN - 02/26/2022 4:06 PM EDT TC placed to follow up with Brian. Reports improvement in diarrhea. Says he has a scheduled colonoscopy 03/28. Discussed elevation in labs of CRP and ESR, as well as mild anemia per Farideh. Patient plans to have labs rechecked at [facility] on Thursday. documented in this encounter Plan of Treatment Upcoming Encounters Date Type Department Care Team (Late st Contact Info) Description 08/15/2024 9:00 AM EDT Office Visit [place] [address] Dion Barlow MD [facility] [place] [address] 09/01/2024 9:40 AM EDT Office Visit Cardiology at [address] [address] Franky Shaver MD [facility] [place] [address] 09/01/2024 11:20 AM EDT Office Visit Dermatology at [address] [address] Gómez Mercer MD [facility] DR EDDIE SANCHEZ-DERMATOLOGY [place], [place] [address] 09/21/2024 2:45 PM EDT Office Visit [facility] [place] [address] Trung Hoyos MD [facility] [place] [address] documented as of this encounter Visit Diagnoses Not on filedocumented in this encounter Care Teams Tank Farm Attendant Relationship Specialty Start Date End Date Deacon Watters APRN [address] [place] [address] [address] [facility] 1 [place] [address] PCP - General Family Medicine 02/17/22 documented as of this encounter
--- OUTSIDE RECORDS SUMMARY | 2024-07-20 13:36 | XMS_ITS | Encounter Summary ---
Author Organization [facility] [place] [address] Care Team Providers Care Pararescue Craftsman Name Role Phone Deacon Watters Priscilla LUCERO Primary Care Provider +1- [phone] Reason for Visit * Reason Onset Date Comments Medication Refill 09/21/2023 Encounter Details Date Type Department Care Team (Late st Contact Info) Description 09/21/2023 [place] [address] Dion Barlow MD [facility] [place] [address] Social History Tobacco Use Types Packs/Day Years [...] 9:00 AM EDT Office [place] [address] Dion Barlow MD [facility] [place] [address] 09/01/2024 9:40 AM EDT Office Visit Cardiology at [address] [place] [address] Franky Shaver MD [facility] [place] [address] 09/01/2024 11:20 AM EDT Office Visit Dermatology at [facility] [address] [place] [address] Gómez Mercer MD [facility] [place] [address] 09/21/2024 2:45 PM EDT Office Visit [place] [address] Trung Hoyos MD [facility] [address] documented as of this encounter Visit Diagnoses Not on filedocumented in this encounter Care Teams Pararescue Craftsman Relationship Specialty Start Date End Date Deacon Watters, SOFTWARE PACKAGER [address] [place] [address] PCP - General Family Medicine 02/17/22 documented as of this encounter
--- OUTSIDE RECORDS SUMMARY | 2024-07-20 13:36 | XMS_ITS | Encounter Summary ---
Author Organization [facility] Address [facility] [place] [address] Care Team Providers Care Desk Clerk Name Role Phone DuongVeliakip Wells APRN Primary Care Provider +1- [phone] Encounter Details Date Type Department Care Team (Late st Contact Info) Description 11/04/2022 Orders [place] [address] Dianna Shen, RN Other ulcerative colitis with [...] 9:00 AM EDT Office [place] [address] Dion Barlow MD [facility] [place] [address] 09/01/2024 9:40 AM EDT Office Visit Cardiology at [address] [address] Franky Shaver MD [facility] [place] [address] 09/01/2024 11:20 AM EDT Office Visit Dermatology at [facility] [address] [place] [address] Gómez Mercer MD [facility] DR [place] [address] 09/21/2024 2:45 PM EDT Office Visit Pain and Spine Center at [facility] [place] [address] Trung Hoyos MD [facility] [place] [address] documented as of this encounter Visit Diagnoses Diagnosis Other ulcerative colitis with rectal bleeding Left sided colitis without complications Left sided ulcerative (chronic) colitis Diarrhea, unspecified type documented in this encounter Care Teams Desk Clerk Relationship Specialty Start Date End Date Deacon Watters APRN [address] [place] [address] PCP - General Family Medicine 02/17/22 documented as of this encounter
--- OUTSIDE RECORDS SUMMARY | 2024-07-20 13:37 | XMS_ITS | Encounter Summary ---
Author Organization [facility] Address [facility] [place] [address] Care Team Providers Care Vault Cashier Name Role Phone Maximilian Fall MD Primary Care Provider [phone] Encounter Details Date Type Department Care Team (Late st Contact Info) Description 02/23/2019 Telephone [place] [address] Suzanne Guillermo Social History Tobacco [...] 9:00 AM EDT Office Visit [place] [address] Dion Barlow MD [facility] [place] [address] 09/01/2024 9:40 AM EDT Office Visit Cardiology at [address] [place] [address] Franky Shaver MD [facility] [place] [address] 09/01/2024 11:20 AM EDT Office Visit Dermatology at [facility] [address] [place] [address] Gómez Mercer MD [facility] [place] [address] 09/21/2024 2:45 PM EDT Office Visit Pain and Spine Center at [facility] [place] [address] Trung Hoyos MD [facility] [place] [address] documented as of this encounter Visit Diagnoses Not on filedocumented in this encounter Care Teams Vault Cashier Relationship Specialty Start Date End Date Maximilian Fall MD [address] [facility] 1 [place] [address] PCP - General 10/01/11 02/13/21 documented as of this encounter
--- OUTSIDE RECORDS SUMMARY | 2024-07-20 13:37 | XMS_ITS | Encounter Summary ---
Author Organization [facility] Address [facility] [place] [address] Care Team Providers Care American Studies Professor Name Role Phone Josue Wilkinson MD Primary Care Provider [phone] Encounter Details Date Type Department Care Team (Late st Contact Info) Description 04/16/2021 Telephone [place] [address] Mona Cherry Social History Tobacco Use Types [...] EDT Office [place] [address] Dion Barlow MD [facility] [place] [address] 09/01/2024 9:40 AM EDT Office Visit Cardiology at [address] [phone] Franky Shaver MD [facility] [place] [address] 09/01/2024 11:20 AM EDT Office Visit Dermatology at [facility] [address] [place] [address] Gómez Mercer MD [facility] [place] [address] 09/21/2024 2:45 PM EDT Office Visit Pain and Spine Center at [facility] [place] [address] Trung Hoyos MD [facility] [place] [address] documented as of this encounter Visit Diagnoses Not on filedocumented in this encounter Care Teams American Studies Professor Relationship Specialty Start Date End Date Josue Wilkinson MD PCP - General General Internal Medicine 02/14/21 9/3 documented as of this encounter
--- OUTSIDE RECORDS SUMMARY | 2024-07-20 13:37 | XMS_ITS | Encounter Summary ---
Author Organization [facility] [place] [address] Care Team Providers Care Dressage Instructor Name Role Phone Maximilian Fall MD Primary Care Provider Reason for Visit * Reason Onset Date Comments Medication Refill 12/11/2020 Encounter Details Date Type Department Care Team (Late st Contact Info) Description 12/11/2020 Ref[place] [address] Dion Barlow MD [facility] [place] [address] Left sided colitis without complications Social History [...] 9:00 AM EDT Office [place] [address] Dion Barlow MD [facility] [place] [address] 09/01/2024 9:40 AM EDT Office Visit Cardiology at [address] [place] [address] Franky Shaver MD [facility] [place] [address] 09/01/2024 11:20 AM EDT Office Visit Dermatology at [facility] [address] [place] [address] Gómez Mercer MD [facility] [place] [address] 09/21/2024 2:45 PM EDT Office Visit [place] [address] Trung Hoyos MD [facility] [place] [address] documented as of this encounter Visit Diagnoses Diagnosis Left sided colitis without complications Left sided ulcerative (chronic) colitis documented in this encounter Care Teams Dressage Instructor Relationship Specialty Start Date End Date Maximilian Fall MD [address] [facility] 1 [place] [address] PCP - General 10/01/11 02/13/21 documented as of this encounter
--- OUTSIDE RECORDS SUMMARY | 2024-07-20 13:37 | XMS_ITS | Encounter Summary ---
Author Organization [facility] Address [facility] [place] [address] Care Team Providers Care Er Nurse Name Role Phone Maximilian Fall MD Primary Care Provider Encounter Details Date Type Department Care Team (Latest Contact Info) Description 09/12/2019 3:40 PM EDT Office [place] [phone] Dion Barlow MD [facility] [place] [address] Left sided colitis without complications Social History [...] IBD History: ?? Colonoscopy 04/08/10 (Dr. Gomes [facility]) - inflammation only within the rectum and sigmoid; extent of the exam was to the hepatic flexure; biopsies proximal to the sigmoid nl ?? Repeat exam 11/27/11 ([facility]): mildly active colitis in the [...] Final ??? UPPER GI ENDOSCOPY 04/28/2019 Final Value:[facility] Endoscopy Procedure Date: 04/28/2019 4:39 PM Patient Name: Brian Rodriguez Date of : 1950 Age: 68 Order #: [id number] Instrument Name: [id number] Procedure: Upper GI endoscopy Indications: Abnormal CT of the GI tract (duodenal thickening) Providers: Iza Coates MD, Nohemi Ball RN, Jonathan Ko, Limited Radiology Technician Referring MD: Maximilian Fall MD Requesting Provider: [...] PM ??? Surgical Pathology Report 04/28/2019 Final Value:[id number] Location: 4T; [facility]; A The signing pathologist has (i) examined the relevant preparation(s) for the specimen(s) and (ii) rendered or confirmed the diagnosis(es). . Surgical Pathology DIAGNOSIS A - Random duodenum, biopsy: Duodenal mucosa within normal limits, including preserved villous architecture. B - Fundic gland, polypectomy: Gastric fundic gland polyp. Electronically signed by: Joana Soler MD Verified: 05/02/2019 Pathologist Performed at: -[facility] Dept. of Pathology, [place], [place] CLINICAL INFORMATION Specimen Submitted: A - [...] patient. Anthony Hamlin [place] [address] ATTENDING ADDENDUM I interviewed and examined Brian [...] sulfasalazine. 15 min of this 20 min [id number]-dr-[id number] visit was spent counseling the patient in the issues outlined above. Davina Barlow MD Rn Floattrolley car overhauler Co-Director, [facility] Section of Gastroenterology [place] [address] documented in this encounter Plan of Treatment Upcoming Encounters Date Type Department Care Team (Late st Contact Info) Description 08/15/2024 9:00 AM EDT Office Visit Gastroenterology at [place] [phone] Dion Barlow MD [facility] [place] [address] 09/01/2024 9:40 AM EDT Office Visit Cardiology at [address] [place] [address] Franky Shaver MD [facility] [place] [address] 09/01/2024 11:20 AM EDT Office Visit Dermatology at [place] [address] [place] [phone] Gómez Mercer MD [facility] [place] [address] 09/21/2024 2:45 PM EDT Office Visit [facility] [place] [phone] Trung Hoyos MD [facility] [place] [address] documented as of this encounter Visit Diagnoses Diagnosis Left sided colitis without complications Left sided ulcerative (chronic) colitis documented in this encounter Care Teams Er Nurse Relationship Specialty Start Date End Date Maximilian Fall MD [address] [facility] 1 [place] [address] PCP - General 10/01/11 02/13/21 documented as of this encounter
--- OUTSIDE RECORDS SUMMARY | 2024-07-20 13:37 | XMS_ITS | Encounter Summary ---
Author Organization [facility] Address [facility] [place] [address] Care Team Providers Care Laundry Manager Name Role Phone Maximilian Fall MD Primary Care Provider [phone] Encounter Details Date Type Department Care Team (Late st Contact Info) Description 02/11/2019 Telephone [place] [address] Rachel Corral Social History Tobacco Use Types [...] - 02/11/2019 10:16 AM EDT Brian Rodriguez [id number] Diagnosis: Adelanto 1. Have you ever had a colonoscopy before? [x] YES [] NO If Yes, Date of Last Adelanto:_02/12/17 If yes, did you have any problems with the procedure? [] YES [x] NO Explain: What type of sedation was used: IV 2. Do you take any Blood Thinners? [] YES [x] NO If Yes, type: 3. Do you have a Pacemaker or Defibrillator device? [] YES [x] NO If Yes send [employer] message to [facility] ENDO DEVICE CHECK 4. Are you [...] NO 11. You must have a responsible democrat stay at the facility during your procedure and drive you home? [x] YES 12. Is there any other information you would like to give us to aid in scheduling? Height: __6'4____ Weight:___252____ BMI: __30.7__ Age:68 y.o. documented in this encounter Plan of Treatment Upcoming Encounters Date Type Department Care Team (Late st Contact Info) Description 08/15/2024 9:00 AM EDT Office [place] [phone] Dion Barlow MD [facility] [place] [address] 09/01/2024 9:40 AM EDT Office Visit Cardiology at [address] [place] [phone] Franky Shaver MD [facility] [place] [address] 09/01/2024 11:20 AM EDT Office Visit Dermatology at [place] [address] [place] [address] Gómez Mercer MD [facility] [address] 09/21/2024 2:45 PM EDT Office Visit [facility] [place] [phone] Trung Hoyos MD [facility] [place] [address] documented as of this encounter Visit Diagnoses Not on filedocumented in this encounter Care Teams Laundry Manager Relationship Specialty Start Date End Date Maximilian Fall MD [address] [place] [address] PCP - General 10/01/11 02/13/21 documented as of this encounter
--- OUTSIDE RECORDS SUMMARY | 2024-07-20 13:37 | XMS_ITS | Encounter Summary ---
Author Organization [facility] Address [facility] [place] [address] Care Team Providers Care Golf Player Assistant Name Role Phone Maximilian Fall MD Primary Care Provider [phone] Encounter Details Date Type Department Care Team (Latest Contact Info) Description 05/09/2019 10:20 AM EDT Office [place] [address] Dion Barlow MD [facility] [place] [address] Left sided colitis without complications Social History [...] ? Overview Note:? Colonoscopy 04/08/10 (Dr. Gomes [facility]) - inflammation only within the rectum [...] needed 20 min of this 25 min [id number] visit was spent counseling the patient in the issues outlined above. Davina Barlow MD [employer] Professorcuring press operator Co-Director, [facility] Section of [place] [address] documented in this encounter Plan of Treatment Upcoming Encounters Date Type Department Care Team (Late st Contact Info) Description 08/15/2024 9:00 AM EDT Office [place] [address] Dion Barlow MD [facility] [place] [address] 09/01/2024 9:40 AM EDT Office Visit Cardiology at [address] [place] [address] Franky Shaver MD [facility] [place] [address] 09/01/2024 11:20 AM EDT Office Visit Dermatology at [facility] [address] [place] [address] Gómez Mercer MD [facility] [place] [address] 09/21/2024 2:45 PM EDT Office Visit Pain and Spine Center at [facility] [address] Trung Hoyos MD [facility] [place] [address] documented as of this encounter Visit Diagnoses Diagnosis Left sided colitis without complications Left sided ulcerative (chronic) colitis documented in this encounter Care Teams Golf Player Assistant Relationship Specialty Start Date End Date Maximilian Fall MD [address] [facility] 1 [place] [address] PCP - General 10/01/11 02/13/21 documented as of this encounter
--- OUTSIDE RECORDS SUMMARY | 2024-07-20 13:37 | XMS_ITS | Encounter Summary ---
Author Organization [facility] Address [facility] [place] [address] Care Team Providers Care Advertising Dispatch Clerk Name Role Phone Maximilian Fall MD Primary Care Provider [phone] Encounter Details Date Type Department Care Team (Latest Contact Info) Description 04/25/2019 10:00 AM EDT Office [place] [address] Marcelle Weinberg APRN [facility] [place] [address] Left sided colitis without complications Social History [...] and have it re read here at [facility] # Colonoscopy again spring 2020. # Avoid [...] ? Overview Note:? Colonoscopy 04/08/10 (Dr. Gomes [facility]) - inflammation only within the [...] 3.66) performed by Dion Osullivan MD at [facility] ENDOSCOPY ??? PRO COLONOSCOPY, DIAGNOSTIC ?? 11/27/2011 ?? COLONOSCOPY, DIAGNOSTIC performed by Dion OSULLIVAN at [facility] ENDOSCOPY ??? PRO COLONOSCOPY, DIAGNOSTIC ?? 07/13/2014 ?? COLONOSCOPY, DIAGNOSTIC performed by Dion Osullivan MD at [facility] ENDOSCOPY ??? PRO SIGMOIDOSCOPY, DIAGNOSTIC ?? 03/16/2012 ?? FLEXIBLE SIGMOIDOSCOPY performed by YUDI MALLOY at [facility] ENDOSCOPY ??? UPPER GI ENDOSCOPY, EXAM ?? 10/01/2012 ?? UPPER GI ENDOSCOPY performed by Dion OSULLIVAN at [facility] ENDOSCOPY ? Social History ?? Socioeconomic History [...] mg/L 5.0 (H) Surgical Pathology Report Unknown [id number] ... COLONOSCOPY Unknown [facility]... COLONOSCOPY COLONOSCOPY Collected: 02/22/19 0570 Resulting lab: PROVATION Value: [facility] Endoscopy Procedure Date: 02/22/2019 3:57 PM ? Patient Name: Brian Rodriguez ? Date of : 1950 ? Age: 68 ? Order #: [id number] ? Instrument Name: [id number] ? Procedure: ? Colonoscopy Indications: ? High [...] ?bowel preparation was evaluated using ?the BBPS ([place] Bowel Preparation ?Scale) with scores of: Right [...] Ana Verified: ??02/26/2019 ?Pathologist Performed at: ??-[facility] Dept. of Pathology, [place], [place] 03/07/19 CT abd/pelvis ( [facility]): Non [...] He had a CT abd/pelvis done at [facility] (03/07/19)when he presented to his [...] and have it re read here at [facility] # Colonoscopy again spring 2020. # Avoid [...] 9:00 AM EDT Office [place] [address] Dion Osullivan MD [facility] [place] [address] 09/01/2024 9:40 AM EDT Office Visit Cardiology at [address] [place] [address] Franky Shaver MD [facility] [place] [address] 09/01/2024 11:20 AM EDT Office Visit Dermatology at [facility] [address] [place] [address] Gómez Mercer MD [facility] DR [place] [address] 09/21/2024 2:45 PM EDT Office Visit Pain and Spine Center at [facility] [place] [address] Trung Hoyos MD [facility] [place] [address] Scheduled Orders Name Type Priority Associated Diagnoses [...] 12:00 PM EDT) Neutrophil % 66.3 % [facility] Neutrophil Absolute 4.90 1.70 - 6.10 x10(3)/[facility] Lymph % 24.0 % [facility] Lymphocytes Abs 1.8 0.9 - 3.2 x10(3)/[facility] Monocyte % 6.8 % [facility] Monocyte Abs 0.5 0.3 - 0.9 x10(3)/[facility] LABOR[facility] Eos % 2.0 % [facility] Eosinophils Abs 0.2 0.0 - 0.4 x10(3)/[facility] Basophil % 0.5 % [facility] Baso Absolute 0.0 0.0 - 0.1 x10(3)/[facility] Immature Gran % 0.40 % [facility] Blood specimen (specimen) 04/25/2019 12:00 PM EDT 04/25/2019 12:03 PM EDT Narrative Resulting Agency Comment Spec In Lab Marcelle Weinberg LAB ASSOCIATE HEMATOLOGY ORDERA BLES [facility] [place] [address] * (ABNORMAL) Hemogram (04/25/2019 12:00 PM EDT) White Blood Cell 7.4 4.0 - 9.5 x10(3)/mc L [facility] Red Blood Cell 4.22(L) 4.58 - 5.54 x10(6)/mc L [facility] Hemoglobin 13.7 13.7 - 16.5 gm/dL [facility] Hematocrit 41.9 40.5 - 48.5 % [facility] Mean Cell Volume 99.3(H) 82.9 - 93.1 fL [facility] Mean Cell Hemoglobin 32.5(H) 27.5 - 32.1 pg [facility] Mean Cell Hemoglobin Concentration 32.7 32.0 - 35.7 gm/dL [facility] Platelet 239 145 - 357 x10(3)/mc L [facility] RDW Standard Deviation 45.9(H) 36.0 - 45.0 fL [facility] RDW coefficient of variation 12.6 11.4 - 13.8 % [facility] Mean Platelet Volume 11.0 7.6 - 12.9 fL [facility] NRBC% auto 0.0 % [facility] NRBC Absolute 0.000 0.000 - 0.000 x10(3)/mc L [facility] Blood specimen (specimen) 04/25/2019 12:00 PM EDT 04/25/2019 12:03 PM EDT Narrative Resulting Agency Comment Spec In Lab Marcelle Weinberg LAB ASSOCIATE HEMATOLOGY ORDERA BLES Performing Organization Address [facility] Co de Phone Number [facility] [place] [address] * CRP, acute inflammation (04/25/2019 12:00 PM EDT) C-Reactive Protein 2.5 <=4.9 mg/L [facility] Blood specimen (specimen) 04/25/2019 12:00 PM EDT 04/25/2019 12:03 PM EDT Narrative Resulting Agency Comment Spec In Lab Marcelle Weinberg LAB ASSOCIATE CHEMISTRY ORDERAB LES Performing Organization Address City/[facility]/ZIP Co de Phone Number [facility] [place] [address] * (ABNORMAL) Sedimentation rate (04/25/2019 12:00 PM EDT) Sedimentation Rate Automated 28(H) 0 - 15 mm/hr [facility] Blood specimen (specimen) 04/25/2019 12:00 PM EDT 04/25/2019 12:03 PM EDT Narrative Resulting Agency Comment Spec In Lab Marcelle Weinberg LAB ASSOCIATE HEMATOLOGY ORDERA BLES [facility] [place] [address] * (ABNORMAL) Comprehensive metabolic panel (non-fasting) (04/25/2019 12:00 PM EDT) Glucose 84 65 - 199 mg/dL [facility] Comment:Diabetes: >=200 mg/d L plus symptoms Blood Urea Nitrogen 15 10 - 20 mg/dL [facility] Creatinine 1.14 0.80 - 1.50 mg/dL [facility] Sodium 140 135 - 145 mmol/L [facility] Potassium 4.8 3.5 - 5.0 mmol/L [facility] Comment: Please note: ??Patients with WBC >100,000 may have falsely elevated Potassium levels. ??For accurate Potassium quantification in these patients send serum separator tube (gold top) for subsequent determinations. ??Contact the Clinical Chemistry Laboratory if there are any questions. Chloride 104 98 - 107 mmol/L [facility] Carbon Dioxide 25 22 - 31 mmol/L [facility] Anion Gap 11 5 - 15 mmol/L [facility] Calcium 9.8 8.5 - 10.5 mg/dL [facility] Protein, Total 8.5(H) 6.1 - 8.0 gm/dL [facility] Albumin 4.4 3.2 - 5.2 gm/dL [facility] Aspartate Aminotransferase 12 0 - 39 unit/L [facility] Alanine Aminotransferase 14 0 - 55 unit/L [facility] Alkaline Phosphatase 70 40 - 120 unit/L [facility] Bilirubin, Total 0.4 0.2 - 1.3 mg/dL [facility] Est Glomerular Filtration Rate 65 >=60 mL/min/1. 73 m?? [facility] Comment: The eGFR was calculated using the CKD-EPI equation. As with all creatinine based estimates of kidney function, eGFR values calculated with the CKD-EPI equation are not accurate in patients with acute kidney failure, extremes of body mass or the acutely ill. http://[employer]/[facility] eGFR 75 >=60 mL/min/1. 73 m?? [facility] Comment: The eGFR was calculated using the CKD-EPI equation. As with all creatinine based estimates of kidney function, eGFR values calculated with the CKD-EPI equation are not accurate in patients with acute kidney failure, extremes of body mass or the acutely ill. http://[employer]/[facility] Blood specimen (specimen) 04/25/2019 12:00 PM EDT 04/25/2019 12:03 PM EDT Narrative Resulting Agency Comment Spec In Lab Marcelle Weinberg LAB ASSOCIATE CHEMISTRY ORDERAB LES Performing Organization Address City/State/[facility] Co de Phone Number [facility] [place] [address] documented in this encounter Visit Diagnoses Diagnosis Left sided colitis without complications Left sided ulcerative (chronic) colitis documented in this encounter Care Teams Advertising Dispatch Clerk Relationship Specialty Start Date End Date Maximilian Fall MD [address] [place] [address] PCP - General 10/01/11 02/13/21 documented as of this encounter
--- OUTSIDE RECORDS SUMMARY | 2024-07-20 13:37 | XMS_ITS | Encounter Summary ---
Author Organization [facility] [place] [address] Care Team Providers Care Phone Triage Specialist Name Role Phone Maximilian Fall MD Primary Care Provider [phone] Reason for Visit * Reason Onset Date Comments Reminder Appointment 03/20/2020 Encounter Details Date Type Department Care Team (Late st Contact Info) Description 03/20/2020 Telephone [place] [address] Kinjal Durham CMA GASTROENTEROLOGY DEPT Reminder Appointment [...] 9:00 AM EDT Office [place] [address] Dion Barlow MD [facility] [place] [address] 09/01/2024 9:40 AM EDT Office Visit Cardiology at [address] [place] [address] Franky Shaver MD [facility] [place] [address] 09/01/2024 11:20 AM EDT Office Visit Dermatology at [facility] [address] [place] [address] Gómez Mercer MD [facility] [address] 09/21/2024 2:45 PM EDT Office Visit [place] [address] Trung Hoyos MD [facility] [place] [address] documented as of this encounter Visit Diagnoses Not on filedocumented in this encounter Care Teams Phone Triage Specialist Relationship Specialty Start Date End Date Maximilian Fall MD [address] [facility] 1 [place] [address] PCP - General 10/01/11 02/13/21 documented as of this encounter
--- OUTSIDE RECORDS SUMMARY | 2024-07-20 13:37 | XMS_ITS | Encounter Summary ---
[place] [address] Care Team Providers Care Clinical Allergist Name Role Phone Maximilian Fall MD Primary Care Provider [phone] Encounter Details Date Type Department Care Team (Late st Contact Info) Description 01/17/2021 Telephone [place] [address] César Garcia Social History Tobacco Use Types [...] - 01/17/2021 1:33 PM EST Brian Rodriguez [id number] Diagnosis/Indication: a repeat colonoscopy in two years [...] 9:00 AM EDT Office [place] [address] Dion Barlow MD [facility] [place] [address] 09/01/2024 9:40 AM EDT Office Visit Cardiology at [address] [phone] Franky Shaver MD [facility] [place] [address] 09/01/2024 11:20 AM EDT Office Visit Dermatology at [place] [address] [place] [address] Gómez Mercer MD [facility] DR [place] [address] 09/21/2024 2:45 PM EDT Office Visit Pain and Spine Center at [facility] [place] [phone] Trung Hoyos MD [facility] [place] [address] documented as of this encounter Visit Diagnoses Not on filedocumented in this encounter Care Teams Clinical Allergist Relationship Specialty Start Date End Date Maximilian Fall MD [address] [place] [address] PCP - General 10/01/11 02/13/21 documented as of this encounter
--- OUTSIDE RECORDS SUMMARY | 2024-07-20 13:37 | XMS_ITS | Encounter Summary ---
Author Organization [facility] [place] [address] Care Team Providers Care Patient Manager Name Role Phone Maximilian Fall MD Primary Care Provider Reason for Visit * Reason Onset Date Comments Medication Refill 05/03/2018 Encounter Details Date Type Department Care Team (Late Contact Info) Description 05/03/2018 Refill [place] [address] Bethany Trivedi, RN Social History Tobacco Use [...] EDT Office [place] [phone] Dion Barlow MD [facility] [place] [address] 09/01/2024 9:40 AM EDT Office Visit Cardiology at [address] [phone] Franky Shaver MD [facility] [place] [address] 09/01/2024 11:20 AM EDT Office Visit Dermatology at [facility] [address] [place] [address] Gómez Mercer MD [facility] [address] [place] [address] 09/21/2024 2:45 PM EDT Office Visit Pain and Spine Center at [facility] [place] [address] Trung Hoyos MD [facility] [place] [address] documented as of this encounter Visit Diagnoses Not on filedocumented in this encounter Care Teams Patient Manager Relationship Specialty Start Date End Date Maximilian Fall MD [address] [place] [address] PCP - General 10/01/11 02/13/21 documented as of this encounter
--- OUTSIDE RECORDS SUMMARY | 2024-07-20 13:37 | XMS_ITS | Encounter Summary ---
Author Organization [facility] Address [facility] [place] [address] Care Team Providers Care Application Technician Name Role Phone Maximilian Fall MD Primary Care Provider [phone] Encounter Details Date Type Department Care Team (Latest Contact Info) Description 02/22/2019 2:13 PM EDT - 02/22/2019 5:26 PM EDT Hospital [place] [address] Dion Barlow MD [facility] [place] [address] Discharge Disposition: Home Social History Tobacco Use [...] - 02/22/2019 5:05 PM EDT Please call [phone] before 8pm Mon-Fri with problems, questions or concerns. If you call after 8pm or on weekends, call the Hospital at [phone] and ask to speak to the Regional Forester boom conveyor operator and the raw scales operator will contact that person for you. * Attachments The following attachments cannot be sent through Care Everywhere. * Colonoscopy: Post-op (Gabonese) * Colon Polyps (Gabonese) documented in this encounter Medications at Time [...] 9:00 AM EDT Office [place] [address] Dion Barlow MD [facility] [place] [address] 09/01/2024 9:40 AM EDT Office Visit Cardiology at [address] [place] [address] Franky Shaver MD [facility] [place] [address] 09/01/2024 11:20 AM EDT Office Visit Dermatology at [facility] [address] [place] [address] Gómez Mercer MD [facility] DR EDDIE SANCHE[place] [address] 09/21/2024 2:45 PM EDT Office Visit [facility] [place] [address] Trung Hoyos MD [facility] [place] [address] documented as of this encounter Procedures Procedure [...] PM EDT 02/22/2019 4:56 PM EDT Narrative [facility] - 02/22/2019 4:56 PM EDT Specimen requisition ordered. ??Separate Pathology report to follow L Karthik Barlow MD PATHOLOGY/CYTOLOGY O RDMELISSA Performing Organization Address [facility]/[place] [address] * Specimen to Pathology (02/22/2019 4:56 PM EDT) AP Specimen 02/22/2019 4:56 PM EDT 02/22/2019 4:56 PM EDT Narrative [facility] - 02/22/2019 4:56 PM EDT Specimen requisition ordered. ??Separate Pathology report to follow L Karthik Barlow MD PATHOLOGY/CYTOLOGY O RDERABLES Performing Organization Address City/[facility]/[place] [address] * Specimen to Pathology (02/22/2019 4:56 PM EDT) AP Specimen 02/22/2019 4:56 PM EDT 02/22/2019 4:56 PM EDT Narrative [facility] - 02/22/2019 4:56 PM EDT Specimen requisition ordered. ??Separate Pathology report to follow L Karthik Barlow MD PATHOLOGY/CYTOLOGY O RDERAOMAR [facility] [place] [address] * Specimen to Pathology (02/22/2019 4:56 PM EDT) AP Specimen 02/22/2019 4:56 PM EDT 02/22/2019 4:56 PM EDT Narrative [facility] - 02/22/2019 4:56 PM EDT Specimen requisition ordered. ??Separate Pathology report to follow L Karthik Barlow MD PATHOLOGY/CYTOLOGY O CEE Performing Organization Address [facility]/[place] [address] * Specimen to Pathology (02/22/2019 4:56 PM EDT) AP Specimen 02/22/2019 4:56 PM EDT 02/22/2019 4:56 PM EDT Narrative [facility] - 02/22/2019 4:56 PM EDT Specimen requisition ordered. ??Separate Pathology report to follow L Karthik Barlow MD PATHOLOGY/CYTOLOGY O CEE Performing Organization Address [facility]/[place] [address] * Specimen to Pathology (02/22/2019 4:56 PM EDT) AP Specimen 02/22/2019 4:56 PM EDT 02/22/2019 4:56 PM EDT Narrative [facility] - 02/22/2019 4:56 PM EDT Specimen requisition ordered. ??Separate Pathology report to follow L Karthik Barlow MD PATHOLOGY/CYTOLOGY O CEE Performing Organization Address [facility] [place] [address] * Specimen to Pathology (02/22/2019 4:56 PM EDT) AP Specimen 02/22/2019 4:56 PM EDT 02/22/2019 4:56 PM EDT Narrative [facility] - 02/22/2019 4:56 PM EDT Specimen requisition ordered. ??Separate Pathology report to follow L Karthik Barlow MD PATHOLOGY/CYTOLOGY O CEE Performing Organization Address [facility] [place] [address] * Specimen to Pathology (02/22/2019 4:56 PM EDT) AP Specimen 02/22/2019 4:56 PM EDT 02/22/2019 4:56 PM EDT Narrative [facility] - 02/22/2019 4:56 PM EDT Specimen requisition ordered. ??Separate Pathology report to follow L Karthik Barlow MD PATHOLOGY/CYTOLOGY O CEE Performing Organization Address [facility] [place] [address] * Surgical Pathology Report (02/22/2019 4:23 PM EDT) Final Diagnosis [id number] ? Location: 4T; EA06; A The signing [...] Tucker MD Verified: ??02/26/2019 ?Pathologist Performed at: ??-[facility] Dept. of Pathology, [place], [place] CLINICAL INFORMATION Specimen Submitted: A - [...] labeled H1-H2. ??apb 02/26/2019 4:24 PM EDT [facility] GI Biopsy 02/22/2019 4:23 PM [...] L Karthik Barlow MD PATHOLOGY/CYTOLOGY O RDERABLES [facility] [place] [place] [address] * COLONOSCOPY (02/22/2019 3:57 PM EDT) COLONOSCOPY [facility] Endoscopy ___ Procedure Date: 02/22/2019 3:57 PM ? Patient Name: Brian Rodriguez ? Date of : 1950 ? Age: 68 ? Order #: [id number] ? Instrument Name: [id number] ? ___ Procedure: ? Colonoscopy Indications: ? [...] preparation was evaluated using ? the BBPS ([place] Bowel Preparation ? Scale) with scores of: [...] GENERAL SURGICAL ORD ERABLES Performing Organization Address City/State/[facility] Co [...] RN) documented in this encounter Care Teams Application Technician Relationship Specialty Start Date End Date Maximilian Fall MD [address] [place] [address] PCP - General 10/01/11 02/13/21 documented as of this encounter
--- OUTSIDE RECORDS SUMMARY | 2024-07-20 13:37 | XMS_ITS | Encounter Summary ---
Author Organization [facility] [place] [address] Care Team Providers Care Data Operations Manager Name Role Phone Maximilian Fall MD Primary Care Provider [phone] Encounter Details Date Type Department Care Team (Late st Contact Info) Description 03/01/2020 Telephone [place] [address] Suzanne Guillermo Social History Tobacco Use Types [...] 9:00 AM EDT Office Visit [place] [address] Dion Barlow MD [facility] DR GASTROENTEROLOGY [place], [place] [address] 09/01/2024 9:40 AM EDT Office Visit Cardiology at [address] [place] [address] Franky Shaver MD [facility] [place] [address] 09/01/2024 11:20 AM EDT Office Visit Dermatology at [facility] [address] [place] [address] Gómez Mercer MD [facility] [place] [address] 09/21/2024 2:45 PM EDT Office Visit Pain and Spine Center at [facility] [place] [address] Trung Hoyos MD [facility] [place] [address] documented as of this encounter Visit Diagnoses Not on filedocumented in this encounter Care Teams Data Operations Manager Relationship Specialty Start Date End Date Maximilian Fall MD [address] [facility] 1 [place] [address] PCP - General 10/01/11 02/13/21 documented as of this encounter
--- OUTSIDE RECORDS SUMMARY | 2024-07-20 13:37 | XMS_ITS | Encounter Summary ---
Author Organization [facility] [place] [address] Care Team Providers Care Varnish Blender Name Role Phone Maximilian Fall MD Primary Care Provider [phone] Encounter Details Date Type Department Care Team (Late st Contact Info) Description 04/26/2019 Ancillary Procedure [place] [phone] Dion Barlow MD [facility] [place] [address] Social History Tobacco Use Types Packs/Day Years [...] AM EDT Office [place] [phone] Dion Barlow MD [facility] [place] [address] 09/01/2024 9:40 AM EDT Office Visit Cardiology at [address] [place] [address] Franky Shaver MD [facility] [place] [address] 09/01/2024 11:20 AM EDT Office Visit Dermatology at [facility] [address] [place] [address] Gómez Mercer MD [facility] DR [place] [address] 09/21/2024 2:45 PM EDT Office Visit [facility] [place] [address] Trung Hoyos MD [facility] [place] [address] documented as of this encounter Procedures Procedure Name Priority Date/Time Associated Diagnosis Comments FILM LIBRARY STORAGE ONLY CT ABDOMEN AND PELVIS Routine 04/26/2019 12:00 AM EDT documented in this encounter Results * Film Library- Storage Only CT Abdomen & Pelvis (04/26/2019 12:00 AM EDT) Narrative [facility] - 04/27/2019 3:22 AM EDT This exam is auto-finalizing. It's purpose is for storage only. L Karthik Barlow MD IMG FILM LIBRARY ORD ERABLES [place] documented in this encounter Visit Diagnoses Not on filedocumented in this encounter Care Teams Varnish Blender Relationship Specialty Start Date End Date Maximilian Fall MD [address] [place] [address] PCP - General 10/01/11 02/13/21 documented as of this encounter
--- OUTSIDE RECORDS SUMMARY | 2024-07-20 13:37 | XMS_ITS | Encounter Summary ---
Author Organization [facility] Address [facility] [place] [address] Care Team Providers Care Slicing Machine Operator/Tender Name Role Phone Maximilian Fall MD Primary Care Provider [phone] Encounter Details Date Type Department Care Team (Late st Contact Info) Description 02/22/2019 3:30 PM EDT - 02/22/2019 4:15 PM EDT Surgery [place] [address] Dion Barlow MD [facility] [place] [address] COLONOSCOPY FLEXIBLE, WITH BX (WRVU 3.56) Social [...] - 02/22/2019 5:05 PM EDT Please call [phone] before 8pm Mon-Fri with problems, questions or concerns. If you call after 8pm or on weekends, call the Hospital at [phone] and ask to speak to the Barge Pilot business administration instructor and the mixer operator will contact that person for [...] 9:00 AM EDT Office [place] [address] Dion Barlow MD [facility] [place] [address] 09/01/2024 9:40 AM EDT Office Visit Cardiology at [address] [place] [address] Franky Shaver MD [facility] [place] [address] 09/01/2024 11:20 AM EDT Office Visit Dermatology at [facility] [address] [place] [address] Gómez Mercer MD [facility] DR EDDIE SANC[place] [address] 09/21/2024 2:45 PM EDT Office Visit [facility] [place] [address] Trung Hoyos MD [facility] [place] [address] documented as of this encounter Procedures Procedure [...] PM EDT 02/22/2019 4:56 PM EDT Narrative [facility] - 02/22/2019 4:56 PM EDT Specimen requisition ordered. ??Separate Pathology report to follow L Karthik Barlow MD PATHOLOGY/CYTOLOGY O CEE Performing Organization Address [facility]/[place] [address] * Specimen to Pathology (02/22/2019 4:56 PM EDT) AP Specimen 02/22/2019 4:56 PM EDT 02/22/2019 4:56 PM EDT Narrative [facility] - 02/22/2019 4:56 PM EDT Specimen requisition ordered. ??Separate Pathology report to follow L Karthik Barlow MD PATHOLOGY/CYTOLOGY O CEE Performing Organization Address City/[facility]/[place] [address] * Specimen to Pathology (02/22/2019 4:56 PM EDT) AP Specimen 02/22/2019 4:56 PM EDT 02/22/2019 4:56 PM EDT Narrative [facility] - 02/22/2019 4:56 PM EDT Specimen requisition ordered. ??Separate Pathology report to follow L Karthik Barlow MD PATHOLOGY/CYTOLOGY O CEE Performing Organization Address City/[facility]/ZIP Co [place] [address] * Specimen to Pathology (02/22/2019 4:56 PM EDT) AP Specimen 02/22/2019 4:56 PM EDT 02/22/2019 4:56 PM EDT Narrative [facility] - 02/22/2019 4:56 PM EDT Specimen requisition ordered. ??Separate Pathology report to follow L Karthik Barlow MD PATHOLOGY/[place] [address] * Specimen to Pathology (02/22/2019 4:56 PM EDT) AP Specimen 02/22/2019 4:56 PM EDT 02/22/2019 4:56 PM EDT Narrative [facility] - 02/22/2019 4:56 PM EDT Specimen requisition ordered. ??Separate Pathology report to follow L Karthik Barlow MD PATHOLOGY/[place] [address] * Specimen to Pathology (02/22/2019 4:56 PM EDT) AP Specimen 02/22/2019 4:56 PM EDT 02/22/2019 4:56 PM EDT Narrative [facility] - 02/22/2019 4:56 PM EDT Specimen requisition ordered. ??Separate Pathology report to follow L Karthik Barlow MD PATHOLOGY/[place] [address] * Specimen to Pathology (02/22/2019 4:56 PM EDT) AP Specimen 02/22/2019 4:56 PM EDT 02/22/2019 4:56 PM EDT [facility] - 02/22/2019 4:56 PM EDT Specimen requisition ordered. ??Separate Pathology report to follow L Karthik Barlow MD PATHOLOGY/CYTOLOGY O CEE Performing Organization Address [facility] Co de Phone Number [facility] [place] [address] * Specimen to Pathology (02/22/2019 4:56 PM EDT) AP Specimen 02/22/2019 4:56 PM EDT 02/22/2019 4:56 PM EDT Narrative [facility] - 02/22/2019 4:56 PM EDT Specimen requisition ordered. ??Separate Pathology report to follow L Karthik Barlow MD PATHOLOGY/CYTOLOGY O CEE Performing Organization Address [facility] de Phone Number [facility] [place] [address] * Surgical Pathology Report (02/22/2019 4:23 PM EDT) Final Diagnosis [id number] ? Location: 4T; EA06; A The signing [...] Tucker MD Verified: ??02/26/2019 ?Pathologist Performed at: ??-[facility] Dept. of Pathology, [place], [place] CLINICAL INFORMATION Specimen Submitted: A - [...] labeled H1-H2. ??apb 02/26/2019 4:24 PM EDT [facility] GI Biopsy 02/22/2019 4:23 [...] L Karthik Barlow MD PATHOLOGY/CYTOLOGY O RDERABLES [facility] [place] [address] * COLONOSCOPY (02/22/2019 3:57 PM EDT) COLONOSCOPY [facility] Endoscopy ___ Procedure Date: 02/22/2019 3:57 PM ? Patient Name: Brian Rodriguez ? Date of : 1950 ? Age: 68 ? Order #: [id number] ? Instrument Name: [id number] ? ___ Procedure: ? Colonoscopy Indications: ? [...] preparation was evaluated using ? the BBPS ([place] Bowel Preparation ? Scale) with scores of: [...] RN) documented in this encounter Care Teams Slicing Machine Operator/Tender Relationship Specialty Start Date End Date Maximilian Fall MD [address] [address] PCP - General 10/01/11 02/13/21 documented as of this encounter
--- OUTSIDE RECORDS SUMMARY | 2024-07-20 13:37 | XMS_ITS | Encounter Summary ---
Author Organization [facility] [place] [address] Care Team Providers Care Director Of Preclinical Research Name Role Phone Maximilian Fall MD Primary Care Provider [phone] Encounter Details Date Type Department Care Team (Late st Contact Info) Description 03/07/2019 Ancillary Procedure [place] [phone] Dion Barlow MD [facility] [place] [address] Social History Tobacco Use Types Packs/Day Years [...] 9:00 AM EDT Office [place] [address] Dion Barlow MD [facility] [place] [address] 09/01/2024 9:40 AM EDT Office Visit Cardiology at [address] [place] [address] Franky Shaver MD [facility] [place] [address] 09/01/2024 11:20 AM EDT Office Visit Dermatology at [facility] [address] [place] [address] Gómez Mercer MD [facility] DR EDDIE [place] [address] 09/21/2024 2:45 PM EDT Office Visit [place] [address] Trung Hoyos MD [facility] [place] [address] documented as of this encounter Procedures Procedure Name Priority Date/Time Associated Diagnosis Comments FILM LIBRARY STORAGE ONLY CT ABDOMEN AND PELVIS Routine 03/07/2019 12:00 AM EDT documented in this encounter Results * Film Library- Storage Only CT Abdomen & Pelvis (03/07/2019 12:00 AM EDT) Narrative [facility] - 04/27/2019 3:15 AM EDT This exam is auto-finalizing. It's purpose is for storage only. L Karthik Barlow MD IMG FILM LIBRARY ORD ERABLES [place] documented in this encounter Visit Diagnoses Not on filedocumented in this encounter Care Teams Director Of Preclinical Research Relationship Specialty Start Date End Date Maximilian Fall MD [address] [place] [address] PCP - General 10/01/11 02/13/21 documented as of this encounter
--- OUTSIDE RECORDS SUMMARY | 2024-07-20 13:37 | XMS_ITS | Encounter Summary ---
Author Organization [facility] Address [facility] [place] [address] Care Team Providers Care Shape Hand Name Role Phone Maximilian Fall MD Primary Care Provider [phone] Encounter Details Date Type Department Care Team (Late st Contact Info) Description 02/22/2019 Orders [place] [address] Dion Barlow MD [facility] [place] [address] Social History Tobacco Use Types Packs/Day Years [...] 9:00 AM EDT Office [place] [address] Dion Barlow MD [facility] [place] [address] 09/01/2024 9:40 AM EDT Office Visit Cardiology at [address] [place] [address] Franky Shaver MD [facility] [place] [address] 09/01/2024 11:20 AM EDT Office Visit Dermatology at [facility] [address] [place] [address] Gómez Mercer MD [facility] DR EDD[place] [address] 09/21/2024 2:45 PM EDT Office Visit [place] [address] Trung Hoyos MD [facility] [place] [address] documented as of this encounter Visit Diagnoses Not on filedocumented in this encounter Care Teams Shape Hand Relationship Specialty Start Date End Date Maximilian Fall MD [address] [facility] 1 [place] [address] PCP - General 10/01/11 02/13/21 documented as of this encounter
--- OUTSIDE RECORDS SUMMARY | 2024-07-20 13:37 | XMS_ITS | Encounter Summary ---
Author Organization [facility] [place] [address] Care Team Providers Care Manager Respiratory Care Name Role Phone Maximilian Fall MD Primary Care Provider [phone] Reason for Visit * Reason Comments Medication Refill Encounter Details Date Type Department Care Team (Late st Contact Info) Description 09/03/2020 [place] [address] Dion Barlow MD [facility] [place] [address] Social History Tobacco Use Types Packs/Day Years [...] EDT Office [place] [address] Dion Barlow MD [facility] [place] [address] 09/01/2024 9:40 AM EDT Office Visit Cardiology at [address] [place] [address] Franky Shaver MD [facility] [place] [address] 09/01/2024 11:20 AM EDT Office Visit Dermatology at [facility] [address] [place] [address] Gómez Mercer MD [facility] DR EDDE[place] [address] 09/21/2024 2:45 PM EDT Office Visit [place] [address] Trung Hoyos MD [facility] [place] [address] documented as of this encounter Visit Diagnoses Not on filedocumented in this encounter Care Teams Manager Respiratory Care Relationship Specialty Start Date End Date Maximilian Fall MD [address] [facility] 1 [place] [address] PCP - General 10/01/11 02/13/21 documented as of this encounter
--- OUTSIDE RECORDS SUMMARY | 2024-07-20 13:37 | XMS_ITS | Encounter Summary ---
[place] [address] Care Team Providers Care Pulvi Mixer Operator Name Role Phone Maximilian Fall MD Primary Care Provider Encounter Details Date Type Department Care Team (Late st Contact Info) Description 04/25/2019 Telephone [place] [address] Brandy Durham Social History Tobacco Use Types [...] conditions (especially heart or lung)?:asthma BMI:30.53 Prep:proclear Account Receivable Associate?:yes Instructions to patient?:instructions to pt@4L/Exit~jhd documented in this encounter Plan of Treatment Upcoming Encounters Date Type Department Care Team (Late st Contact Info) Description 08/15/2024 9:00 AM EDT Office Visit [place] [address] Dion Barlow MD [facility] [place] [address] 09/01/2024 9:40 AM EDT Office Visit Cardiology at [address] [address] Franky Shaver MD [facility] [place] [address] 09/01/2024 11:20 AM EDT Office Visit Dermatology at [address] [place] [address] Gómez Mercer MD [facility] [place] [address] 09/21/2024 2:45 PM EDT Office Visit [facility] [place] [address] Trung Hoyos MD [facility] [place] [address] documented as of this encounter Visit Diagnoses Not on filedocumented in this encounter Care Teams Pulvi Mixer Operator Relationship Specialty Start Date End Date Maximilian Fall MD [address] [facility] [address] [address] [facility] 1 [place] [address] PCP - General 10/01/11 02/13/21 documented as of this encounter
--- OUTSIDE RECORDS SUMMARY | 2024-07-20 13:37 | XMS_ITS | Encounter Summary ---
Author Organization [facility] [address] Care Team Providers Care Regulatory Law Specialist Name Role Phone Maximilian Fall MD Primary Care Provider [phone] Encounter Details Date Type Department Care Team (Late st Contact Info) Description 11/02/2018 [place] [address] Marcelle Weinberg, FACULTY MEMBER [facility] [place] [address] Social History Tobacco Use Types Packs/Day Years [...] Notes * Telephone Encounter - Marcelle Weinberg, FACULTY MEMBER - 11/02/2018 5:27 PM EST I called [...] 9:00 AM EDT Office [place] [address] Dion Barlow MD [facility] [place] [address] 09/01/2024 9:40 AM EDT Office Visit Cardiology at [address] [address] Franky Shaver MD [facility] [place] [address] 09/01/2024 11:20 AM EDT Office Visit Dermatology at [facility] [address] [place] [address] Gómez Mercer MD [facility] [place] [address] 09/21/2024 2:45 PM EDT Office Visit [place] [address] Trung Hoyos MD [facility] [place] [address] documented as of this encounter Visit Diagnoses Not on filedocumented in this encounter Care Teams Regulatory Law Specialist Relationship Specialty Start Date End Date Maximilian Fall MD [address] [place] [address] PCP - General 10/01/11 02/13/21 documented as of this encounter
--- OUTSIDE RECORDS SUMMARY | 2024-07-20 13:37 | XMS_ITS | Encounter Summary ---
Author Organization [facility] [place] [address] Care Team Providers Care Rooming House Inspector Name Role Phone Maximilian Fall MD Primary Care Provider [phone] Reason for Visit * Reason Onset Date Comments Medication Refill 02/16/2020 Encounter Details Date Type Department Care Team (Late st Contact Info) Description 02/16/2020 Refill [place] [address] Bethany Trivedi, RN Left sided colitis without [...] 9:00 AM EDT Office Visit [place] [address] Dion Barlow MD [facility] [place] [address] 09/01/2024 9:40 AM EDT Office Visit Cardiology at [address] [place] [address] Franky Shaver MD [facility] [place] [address] 09/01/2024 11:20 AM EDT Office Visit Dermatology at [address] [place] [address] Gómez Mercer MD [facility] DR EDDIE [place] [address] 09/21/2024 2:45 PM EDT Office Visit [facility] [place] [address] Trung Hoyos MD [facility] [place] [place] [address] documented as of this encounter Visit Diagnoses Diagnosis Left sided colitis without complications Left sided ulcerative (chronic) colitis documented in this encounter Care Teams Rooming House Inspector Relationship Specialty Start Date End Date Maximilian Fall MD [address] [place] [address] PCP - General 10/01/11 02/13/21 documented as of this encounter
--- OUTSIDE RECORDS SUMMARY | 2024-07-20 13:37 | XMS_ITS | Encounter Summary ---
Author Organization [facility] Address [facility] [place] [address] Care Team Providers Care Bar Machine Operator Name Role Phone Maximilian Fall MD Primary Care Provider [phone] Encounter Details Date Type Department Care Team (Late st Contact Info) Description 04/28/2019 4:15 PM EDT - 04/28/2019 4:45 PM EDT Surgery [place] [address] Iza Coates MD [facility] [place] [address] EGD, UPPER GI ENDOSCOPY (WRVU 2.09) Social [...] Care Everywhere. * EGD (Upper Endoscopy): Post-op (French) documented in this encounter Medications at Time [...] sedation) Iza Coates MD Gastroenterology attending Pager [phone] documented in this encounter Plan of Treatment Upcoming Encounters Date Type Department Care Team (Late st Contact Info) Description 08/15/2024 9:00 AM EDT Office [place] [address] Dion Barlow MD [facility] [place] [address] 09/01/2024 9:40 AM EDT Office Visit Cardiology at [address] [phone] Franky Shaver MD [facility] [place] [address] 09/01/2024 11:20 AM EDT Office Visit Dermatology at [facility] [address] [place] [address] Gómez Mercer MD [facility] [address] [place] [address] 09/21/2024 2:45 PM EDT Office Visit Pain and Spine Center at [facility] [place] [address] Trung Hoyos MD [facility] [address] documented as of this encounter Procedures Procedure [...] PM EDT 04/28/2019 5:03 PM EDT [facility] LABORATORY - 04/28/2019 5:03 PM EDT Specimen requisition ordered. ??Separate Pathology report to follow Iza Coates MD PATHOLOGY/CYTOLOG Y ORDERABLES Performing Organization Address [facility] Co de Phone Number [facility] [place] [address] * Specimen to Pathology (04/28/2019 5:03 PM EDT) AP Specimen 04/28/2019 5:03 PM EDT 04/28/2019 5:03 PM EDT Narrative [facility]OR[facility]ORY - 04/28/2019 5:03 PM EDT Specimen requisition ordered. ??Separate Pathology report to follow Iza Coates MD PATHOLOGY/CYTOLOG Y ORDERABLES Performing Organization Address [facility] [place] [address] * Surgical Pathology Report (04/28/2019 4:50 PM EDT) Final Diagnosis [id number] ? Location: 4T; EA10; A The signing [...] [facility] Dept. of Pathology, [place], [place] CLINICAL INFORMATION Specimen Submitted: A - [...] EDT Iza Coates MD PATHOLOGY/CYTOLOG Y ORDERABLES [facility] [place] [address] * UPPER GI ENDOSCOPY (04/28/2019 4:39 PM EDT) UPPER GI ENDOSCOPY [facility] Endoscopy Procedure Date: 04/28/2019 4:39 PM ? Patient Name: Brian Rodriguez ? Date of : 1950 ? Age: 68 ? Order #: [id number] ? Instrument Name: [id number] ? Procedure: ? Upper GI endoscopy Indications: ? Abnormal CT of the GI tract (duodenal ? thickening) Providers: ? Iza Coates MD, Nohemi Ball, ? RN, Jonathan Ko, Diving Fisher Referring MD: ?Maximilian Fall MD Requesting Provider: [...] CARE KISHOR T ORDERABLES Performing Organization Address [facility] Co de Phone Number [facility] [place] [address] documented in this encounter Visit Diagnoses Diagnosis [...] RN) documented in this encounter Care Teams Bar Machine Operator Relationship Specialty Start Date End Date Maximilian Fall MD [address] [place] [address] PCP - General 10/01/11 02/13/21 documented as of this encounter
--- OUTSIDE RECORDS SUMMARY | 2024-07-20 13:37 | XMS_ITS | Encounter Summary ---
Author Organization [facility] Address [facility] [place] [address] Care Team Providers Care Computer Network Specialist Name Role Phone Josue Wilkinson MD Primary Care Provider Encounter Details Date Type Department Care Team (Latest Contact Info) Description 02/26/2021 2:52 PM EDT - 02/26/2021 6:22 PM EDT Hospital En[place] [address] Dion Barlow MD [facility] [place] [address] Discharge Disposition: Home Social History Tobacco Use [...] to be checked. Thursday-Thursday Same Day Endo [phone] 7a-8p Otherwise contact [phone] and ask to speak to the mirror maker dish up person Follow up care is a le part [...] 9:00 AM EDT Office [place] [address] Dion Barlow MD [facility] [place] [address] 09/01/2024 9:40 AM EDT Office Visit Cardiology at [address] [place] [address] Franky Shaver MD [facility] [place] [address] 09/01/2024 11:20 AM EDT Office Visit Dermatology at [facility] [address] [place] [address] Gómez Mercer MD [facility] DANIEL[place] [address] 09/21/2024 2:45 PM EDT Office Visit [place] [address] Trung Hoyos MD [facility] [place] [address] documented as of this encounter Procedures Procedure Name Priority Date/Time Associated Diagnosis Comments POCT GLUCOSE Routine 02/26/2021 5:51 PM EDT SPECIMEN TO PATHOLOGY Routine 02/26/2021 5:10 PM EDT SPECIMEN TO PATHOLOGY Routine 02/26/2021 5:10 PM EDT SPECIMEN TO PATHOLOGY Routine 02/26/2021 5:10 PM EDT SURGICAL PATHOLOGY REPORT Routine 02/26/2021 4:53 PM EDT Colonoscopy, Remv [address] ([id number]) 02/26/2021 4:28 PM EDT a repeat colonoscopy [...] CARE TEST O CEE Performing Organization Address [facility] Co de Phone Number [facility] [place] [address] * Specimen to Pathology (02/26/2021 5:10 PM EDT) AP Specimen 02/26/2021 5:10 PM EDT 02/26/2021 5:10 PM EDT Narrative [facility] LABORATORY - 02/26/2021 5:10 PM EDT Specimen requisition ordered. ??Separate Pathology report to follow L Karthik Barlow MD PATHOLOGY/CYTOLOGY O CEE Performing Organization Address City/[facility]/ZIP Co de Phone Number [facility] [place] [address] * Specimen to Pathology (02/26/2021 5:10 PM EDT) AP Specimen 02/26/2021 5:10 PM EDT 02/26/2021 5:10 PM EDT Narrative [facility] LABORATORY - 02/26/2021 5:10 PM EDT Specimen requisition ordered. ??Separate Pathology report to follow L Karthik Barlow MD PATHOLOGY/CYTOLOGY O CEE [facility] [place] [address] * Specimen to Pathology (02/26/2021 5:10 PM EDT) AP Specimen 02/26/2021 5:10 PM EDT 02/26/2021 5:10 PM EDT Narrative [facility] LABORATORY - 02/26/2021 5:10 PM EDT Specimen requisition ordered. ??Separate Pathology report to follow L Karthik Barlow MD PATHOLOGY/CYTOLOGY O RDERABLES Performing Organization Address [facility] Co de Phone Number [facility] [place] [address] * Surgical Pathology Report (02/26/2021 4:53 PM EDT) Final Diagnosis [id number] ? Location: 4T; 08; A The signing [...] MD Verified: ??03/04/2021 16:33 ??Pathologist Performed at: ??-[facility] Dept. of Pathology, [place], [place] SPECIMEN(S) SUBMITTED A - right colon [...] L Karthik Barlow MD PATHOLOGY/CYTOLOGY O DANIELERAOMAR [facility] [place] [address] * COLONOSCOPY (02/26/2021 4:21 PM EDT) COLONOSCOPY [facility] Endoscopy ___ Procedure Date: 02/26/2021 4:21 PM ? Patient Name: Brian Rodriguez ? Date of : 1950 ? Age: 70 ? Order #: [id number] ? Instrument Name: [id number] ? ___ Procedure: ? Colonoscopy Indications: ? [...] preparation was evaluated using ? the BBPS ([place] Bowel Preparation ? Scale) with scores of: [...] MD POINT OF CARE TEST O RDERABLES [facility] [place] [address] documented in this encounter Visit Diagnoses Not [...] RN) documented in this encounter Care Teams Computer Network Specialist Relationship Specialty Start Date End Date Jsoue Wilkinson MD PCP - General General Internal Medicine 02/14/2107/26 documented as of this encounter
--- OUTSIDE RECORDS SUMMARY | 2024-07-20 13:37 | XMS_ITS | Encounter Summary ---
Author Organization [facility] Lina [facility] [place] [address] Care Team Providers Care Crematorium Operator Name Role Phone Maximilian Fall MD Primary Care Provider [phone] Encounter Details Date Type Department Care Team (Latest Contact Info) Description 04/25/2019 12:15 PM EDT Ancillary Procedure [place] [address] Marcelle Weinberg, JAZMINE [facility] [place] [address] Left sided colitis without complications Social History [...] 9:00 AM EDT Office Visit [place] [address] Dion Barlow MD [facility] [place] [address] 09/01/2024 9:40 AM EDT Office Visit Cardiology at [address] [place] [address] Franky Shaver MD [facility] [address] 09/01/2024 11:20 AM EDT Office Visit Dermatology at [facility] [address] [place] [address] Gómez Mercer MD [facility] [place] [address] 09/21/2024 2:45 PM EDT Office Visit Pain and Spine Center at [facility] [place] [address] Trung Hoyos MD [facility] [place] [address] documented as of this encounter Visit Diagnoses Diagnosis Left sided colitis without complications Left sided ulcerative (chronic) colitis documented in this encounter Care Teams Crematorium Operator Relationship Specialty Start Date End Date Maximilian Fall MD [address] [facility] [place] [address] PCP - General 10/01/11 02/13/21 documented as of this encounter
--- OUTSIDE RECORDS SUMMARY | 2024-07-20 13:37 | XMS_ITS | Encounter Summary ---
Author Organization [facility] Address [facility] [place] [address] Care Team Providers Care Social Welfare Administrator Name Role Phone Josue Wilkinson MD Primary Care Provider [phone] Encounter Details Date Type Department Care Team (Late st Contact Info) Description 02/26/2021 4:00 PM EDT - 02/26/2021 5:00 PM EDT [place] [address] Dion Barlow MD [facility] [place] [address] COLONOSCOPY, POLYPECTOMY, REMOVAL LESION BY SNARE (WRVU [...] to be checked. Thursday-Thursday Same Day Endo [phone] 7a-8p Otherwise contact [phone] and ask to speak to the leather staker anger control counselor Follow up care is a le part [...] EDT Office [place] [address] Dion Barlow MD [facility] [place] [address] 09/01/2024 9:40 AM EDT Office Visit Cardiology at [address] [place] [address] Franky Shaver MD [facility] [place] [address] 09/01/2024 11:20 AM EDT Office Visit Dermatology at [facility] [address] [place] [address] Gómez Mercer MD [facility] [place] [address] 09/21/2024 2:45 PM EDT Office Visit [place] [address] Trung Hoyos MD [facility] [place] [address] documented as of this encounter Procedures Procedure Name Priority Date/Time Associated Diagnosis Comments POCT GLUCOSE Routine 02/26/2021 5:51 PM EDT SPECIMEN TO PATHOLOGY Routine 02/26/2021 5:10 PM EDT SPECIMEN TO PATHOLOGY Routine 02/26/2021 5:10 PM EDT SPECIMEN TO PATHOLOGY Routine 02/26/2021 5:10 PM EDT SURGICAL PATHOLOGY REPORT Routine 02/26/2021 4:53 PM EDT Colonoscopy, Remv Lesmary kay, Snare ([id number]) 02/26/2021 4:28 PM EDT a repeat colonoscopy in two years from 02/22/19 COLONOSCOPY Routine 02/26/2021 4:21 PM EDT POCT GLUCOSE Routine 02/26/2021 3:42 PM EDT documented in this encounter Results * POCT Glucose (02/26/2021 5:51 PM EDT) Glucose, POC 160 65 - 199 mg/dL [facility] Comment: Supplemental ranges: <140 mg/dL before meals <180 mg/dL all other times of the day Blood specimen (specimen) 02/26/2021 5:51 PM EDT 02/26/2021 12:00 PM EDT L Karthik Barlow MD POINT OF CARE TEST O CEE Performing Organization Address [facility]/ZIP Co de Phone Number [facility] [place] [address] * Specimen to Pathology (02/26/2021 5:10 PM EDT) AP Specimen 02/26/2021 5:10 PM EDT 02/26/2021 5:10 PM EDT Narrative [facility] - 02/26/2021 5:10 PM EDT Specimen requisition ordered. ??Separate Pathology report to follow L Karthik Barlow MD PATHOLOGY/CYTOLOGY O CEE Performing Organization Address City/[facility]/ZIP Co de Phone Number [facility] [place] [address] * Specimen to Pathology (02/26/2021 5:10 PM EDT) AP Specimen 02/26/2021 5:10 PM EDT 02/26/2021 5:10 PM EDT Narrative [facility] - 02/26/2021 5:10 PM EDT Specimen requisition ordered. ??Separate Pathology report to follow L Karthik Barlow MD PATHOLOGY/CYTOLOGY O CEE Performing Organization Address City/[facility]/ZIP Co de Phone Number [facility] [place] [address] * Specimen to Pathology (02/26/2021 5:10 PM EDT) AP Specimen 02/26/2021 5:10 PM EDT 02/26/2021 5:10 PM EDT Narrative [facility] - 02/26/2021 5:10 PM EDT Specimen requisition ordered. ??Separate Pathology report to follow L Karthik Barlow MD PATHOLOGY/CYTOLOGY O CEE Performing Organization Address [facility] Co de Phone Number [facility] [place] [address] * Surgical Pathology Report (02/26/2021 4:53 PM EDT) Final Diagnosis [id number] ? Location: 4T; EA08; A The signing [...] MD Verified: ??03/04/2021 16:33 ??Pathologist Performed at: ??-[facility] Dept. of Pathology, [place], [place] SPECIMEN(S) SUBMITTED A - right colon [...] labeled C1. ??shb 03/04/2021 4:33 PM EDT [facility] GI Biopsy 02/26/2021 4:53 PM EDT 02/26/2021 4:53 PM EDT GI Biopsy 02/26/2021 4:53 PM EDT 02/26/2021 4:53 PM EDT GI Biopsy 02/26/2021 4:53 PM EDT 02/26/2021 4:53 PM EDT L Karthik Barlow MD PATHOLOGY/CYTOLOGY O RDERABLES [facility] [place] [address] * COLONOSCOPY (02/26/2021 4:21 PM EDT) COLONOSCOPY [facility] Endoscopy ___ Procedure Date: 02/26/2021 4:21 PM ? Patient Name: Brian Rodriguez ? Date of : 1950 ? Age: 70 ? Order #: [id number] ? Instrument Name: [id number] ? ___ Procedure: ? Colonoscopy Indications: ? [...] preparation was evaluated using ? the BBPS ([place] Bowel Preparation ? Scale) with scores of: [...] Glucose, POC 128 65 - 199 mg/dL [facility] Comment: Supplemental ranges: <140 mg/dL before meals <180 mg/dL all other times of the day Blood specimen (specimen) 02/26/2021 3:42 PM EDT 02/26/2021 12:00 PM EDT Dion Barlow MD POINT OF CARE TEST O RDERABLES Performing Organization Address City/[facility]/ZIP Co de Phone Number [facility] [place] [address] documented in this encounter Visit Diagnoses Not [...] RN) documented in this encounter Care Teams Social Welfare Administrator Relationship Specialty Start Date End Date Josue Wilkinson MD PCP - General General Internal Medicine 02/14/2107/26 documented as of this encounter
--- OUTSIDE RECORDS SUMMARY | 2024-07-20 13:37 | XMS_ITS | Encounter Summary ---
Author Organization [facility] [place] [address] Care Team Providers Care Cake Tester Name Role Phone Maximilian Fall MD Primary Care Provider [phone] Encounter Details Date Type Department Care Team (Late st Contact Info) Description 11/10/2018 Telephone [place] [address] Rachel Corral Social History Tobacco Use Types [...] 9:00 AM EDT Office [place] [address] Dion Barlow MD [facility] [place] [address] 09/01/2024 9:40 AM EDT Office Visit Cardiology at [address] [address] Franky Shaver MD [facility] [place] [address] 09/01/2024 11:20 AM EDT Office Visit Dermatology at [address] [place] [address] Gómez Mercer MD [facility] [place] [address] 09/21/2024 2:45 PM EDT Office Visit [place] [address] Trung Hoyos MD [facility] [place] [address] documented as of this encounter Visit Diagnoses Not on filedocumented in this encounter Care Teams Cake Tester Relationship Specialty Start Date End Date Maximilian Fall MD [address] [facility] [address] [facility] [address] [facility] 1 [place] [address] PCP - General 10/01/11 02/13/21 documented as of this encounter
--- OUTSIDE RECORDS SUMMARY | 2024-07-20 13:37 | XMS_ITS | Encounter Summary ---
Author Organization [facility] Address [facility] [place] [address] Care Team Providers Care Net Developer Architect Name Role Phone Maximilian Fall MD Primary Care Provider [phone] Encounter Details Date Type Department Care Team (Latest Contact Info) Description 03/20/2020 10:00 AM EDT TH Visit (TeleHealth) [place] [address] Dion Osullivan MD [facility] [place] [address] Other ulcerative colitis with rectal bleeding Social [...] Overview Note: ?? Colonoscopy 04/08/10 (Dr. Gomes [facility]) - inflammation only within the rectum and sigmoid; extent of the exam was to the hepatic flexure; biopsies proximal to the sigmoid nl ?? Repeat exam 11/27/11 ([facility] [...] apparently recommended by his urology team and [facility]. He reports for a UTI [...] past surgical history that includes Colonoscopy, Diagnostic (92488) (11/27/2011); Sigmoidoscopy, Diagnostic (34098) (03/16/2012); Upper Gi Endoscopy, Exam (56949) (10/01/2012); Colonoscopy, Diagnostic (15679) (07/13/2014); Colonoscopy, Biopsy (14077) (N/A, 02/12/2017); Colonoscopy, Biopsy (85326) (N/A, 02/22/2019); Colonoscopy, Remv Lesn, Snare ([id number]) (N/A, 02/22/2019); and Upper GI Endoscopy, Diagnostic (52397) (N/A, 04/28/2019). Family History: family history is [...] Would check C. Diff and lactoferrin at [facility]. Also, will call if diarrhea [...] with patient on above. Dion OSULLIVAN MD [facility] [place] [address] documented in this encounter Plan of Treatment Upcoming Encounters Date Type Department Care Team (Late st Contact Info) Description 08/15/2024 9:00 AM EDT Office Visit [place] [address] Dion Osullivan MD [facility] [address] 09/01/2024 9:40 AM EDT Office Visit Cardiology at [address] [place] [address] Franky Shaver MD [facility] [place] [address] 09/01/2024 11:20 AM EDT Office Visit Dermatology at [facility] [address] [place] [address] Gómez Mercer MD [facility] [place] [address] 09/21/2024 2:45 PM EDT Office Visit [facility] [place] [address] Trung Hoyos MD [facility] [place] [address] documented as of this encounter Visit Diagnoses Diagnosis Other ulcerative colitis with rectal bleeding documented in this encounter Care Teams Net Developer Architect Relationship Specialty Start Date End Date Maximilian Fall MD [address] [facility] 1 [place] [address] PCP - General 10/01/11 02/13/21 documented as of this encounter
--- OUTSIDE RECORDS SUMMARY | 2024-07-20 13:37 | XMS_ITS | Encounter Summary ---
Author Organization [facility] [place] [address] Care Team Providers Care Garment Presser Name Role Phone Maximilian Fall MD Primary Care Provider [phone] Reason for Visit * Reason Onset Date Comments Prior Authorization 05/10/2018 Encounter Details Date Type Department Care Team (Late st Contact Info) Description 05/10/2018 Telephone [place] [address] Jarret Roa diamond grinder Social History Tobacco Use Types Packs/Day Years [...] x 4 weeks Insurance & Phone #: [id number] Part D ID #: [id number] Trialed (dosage, frequency): hydrocortisone enemas (causes nausea), sulfasalazine, canasa (caused pelvic pain), cortifoam (manufacturing shortage), Asacol, Rowasa, prednisone Diagnosis/ICD-10: 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 [place] [address] 09/01/2024 9:40 AM EDT Office Visit Cardiology at [address] [phone] [facility] [place] [address] 09/01/2024 11:20 AM EDT Office Visit Dermatology at [place] [address] [place] [phone] [facility] [place] [address] 09/21/2024 2:45 PM EDT Office Visit [place] [phone] [facility] [place] [address] documented as of this encounter Visit Diagnoses Not on filedocumented in this encounter Care Teams Garment Presser Relationship Specialty Start Date End Date Maximilian Fall MD [address] [facility] [address] [place] [address] PCP - General 10/01/11 02/13/21 documented as of this encounter
--- OUTSIDE RECORDS SUMMARY | 2024-07-20 13:37 | XMS_ITS | Encounter Summary ---
Author Organization [facility] Address [facility] [place] [address] Care Team Providers Care Construction Secretary Name Role Phone Maximilian Fall MD Primary Care Provider [phone] Encounter Details Date Type Department Care Team (Latest Contact Info) Description 04/28/2019 3:07 PM EDT - 04/28/2019 6:06 PM EDT Hospital Encounter [place] [address] Iza Coates MD [facility] [place] [address] Discharge Disposition: Home Social History Tobacco Use [...] Care Everywhere. * EGD (Upper Endoscopy): Post-op (Yemeni) documented in this encounter Medications at Time [...] sedation) Iza Coates MD Gastroenterology attending Pager [phone] documented in this encounter Plan of Treatment Upcoming Encounters Date Type Department Care Team (Late st Contact Info) Description 08/15/2024 9:00 AM EDT Office Visit [place] [address] Dion Barlow MD [facility] [place] [address] 09/01/2024 9:40 AM EDT Office Visit Cardiology at [address] [place] [address] Franky Shaver MD [facility] [place] [address] 09/01/2024 11:20 AM EDT Office Visit Dermatology at [facility] [address] [place] [address] Gómez Mercer MD [facility] DR EDDIE [place] [address] 09/21/2024 2:45 PM EDT Office Visit Pain and Spine Center at [facility] [place] [address] Trung Hoyos MD [facility] [place] [address] documented as of this encounter Procedures Procedure [...] 5:03 PM EDT 04/28/2019 5:03 PM EDT [facility] LABORATORY - 04/28/2019 5:03 PM EDT Specimen requisition ordered. ??Separate Pathology report to follow Iza Coates MD PATHOLOGY/CYTOLOG Y ORDERABLES [facility] [place] [address] * Specimen to Pathology (04/28/2019 5:03 PM EDT) AP Specimen 04/28/2019 5:03 PM EDT 04/28/2019 5:03 PM EDT Narrative [facility] - 04/28/2019 5:03 PM EDT Specimen requisition ordered. ??Separate Pathology report to follow Iza Coates MD PATHOLOGY/CYTOLOG Y ORDERABLES Performing Organization Address [facility] Co de Phone Number [facility] [place] [address] * Surgical Pathology Report (04/28/2019 4:50 PM EDT) Final Diagnosis [id number] ? Location: 4T; EA10; A The signing pathologist has (i) examined the relevant preparation(s) for the specimen(s) and (ii) rendered or confirmed the diagnosis(es). . ?Surgical Pathology DIAGNOSIS A - Random duodenum, biopsy: Duodenal mucosa within normal limits, including preserved villous architecture. B - Fundic gland, polypectomy: Gastric fundic gland polyp. Electronically signed by: ??Joana Soler MD Verified: ??05/02/2019 ?Pathologist Performed at: ??-[facility] Dept. of Pathology, [place], [place] CLINICAL INFORMATION Specimen Submitted: A - [...] labeled B1. ??ejr 05/02/2019 4:02 PM EDT [facility] GI Biopsy 04/28/2019 4:50 PM EDT 04/28/2019 4:50 PM EDT GI Biopsy 04/28/2019 4:50 PM EDT 04/28/2019 4:50 PM EDT Iza Coates MD PATHOLOGY/CYTOLOG Y ORDERABLES [facility] [place] [address] * UPPER GI ENDOSCOPY (04/28/2019 4:39 PM EDT) UPPER GI ENDOSCOPY [facility] Endoscopy Procedure Date: 04/28/2019 4:39 PM ? Patient Name: Brian Rodriguez ? Date of : 1950 ? Age: 68 ? Order #: [id number] ? Instrument Name: [id number] ? Procedure: ? Upper GI endoscopy Indications: ? Abnormal CT of the GI tract (duodenal ? thickening) Providers: ? Iza Coates MD, Nohemi Ball, ? RN, Jonathan Ko, Chisel Trimmer Referring MD: ?Maximilian Fall MD Requesting Provider: [...] personally performed the entire procedure. ? ____ zIa Coates MD 04/28/2019 4:57:28 PM Number of Addenda: 0 Note Initiated On: 04/28/2019 4:39 PM PROVATION 04/28/2019 4:39 PM EDT Maximilian Fall MD GENERAL SURGICAL ORD ERABLES Performing Organization Address City/[facility] Co de Phone Number PROVATION * POCT Glucose (04/28/2019 3:46 PM EDT) Glucose, POC 91 65 - 199 mg/dL [facility] Comment: Supplemental ranges: <140 mg/dL before meals <180 mg/dL all other times of the day Blood specimen (specimen) 04/28/2019 3:46 PM EDT 04/28/2019 3:46 PM EDT Iza Coates MD POINT OF CARE KISHOR T ORDERABLES Performing Organization Address [facility] de Phone Number [facility] [place] [address] documented in this encounter Visit Diagnoses Not [...] RN) documented in this encounter Care Teams Construction Secretary Relationship Specialty Start Date End Date Maximilian Fall MD [address] [place] [address] PCP - General 10/01/11 02/13/21 documented as of this encounter
--- OUTSIDE RECORDS SUMMARY | 2024-07-20 13:37 | XMS_ITS | Encounter Summary ---
Author Organization [facility] [place] [address] Care Team Providers Care Wiper Blender Name Role Phone Maximilian Fall MD Primary Care Provider [phone] Reason for Visit * Reason Onset Date Comments Medication Refill 06/27/2019 Encounter Details Date Type Department Care Team (Late st Contact Info) Description 06/27/2019 Refill [place] [address] Sophia Coleman, CCMA Social History Tobacco Use [...] 9:00 AM EDT Office [place] [phone] Dion Barlow MD [facility] [place] [address] 09/01/2024 9:40 AM EDT Office Visit Cardiology at [address] [phone] Franky Shaver MD [facility] [place] [address] 09/01/2024 11:20 AM EDT Office Visit Dermatology at [facility] [address] [place] [address] Gómez Mercer MD [facility] DR EDDIE [place] [address] 09/21/2024 2:45 PM EDT Office Visit Pain and Spine Center at [facility] [place] [phone] Trung Hoyos MD [facility] [place] [address] documented as of this encounter Visit Diagnoses Not on filedocumented in this encounter Care Teams Wiper Blender Relationship Specialty Start Date End Date Maximilian Fall MD [address] [place] [address] PCP - General 10/01/11 02/13/21 documented as of this encounter
--- OUTSIDE RECORDS SUMMARY | 2024-07-20 13:37 | XMS_ITS | Encounter Summary ---
Author Organization [facility] Address [facility] [place] [address] Care Team Providers Care Middle School French Teacher Name Role Phone Maximilian Fall MD Primary Care Provider [phone] Encounter Details Date Type Department Care Team (Latest Contact Info) Description 11/02/2018 1:00 PM EST Office [place] [address] Marcelle Weinberg APRN [facility] [place] [address] Left sided colitis without complications Social History [...] Overview Note:? Colonoscopy 04/08/10 (Dr. Gomes [facility]) - inflammation only within the rectum and sigmoid; extent of the exam was to the hepatic flexure; biopsies proximal to the sigmoid nl ?? Repeat exam 11/27/11 ([facility] mildly active colitis in the sigmoid colon [...] underwent left inguinal hernia repair at [facility] 2 weeks ago. Once he was discharged [...] 3.66) performed by Dion Osullivan MD at [facility] ENDOSCOPY ??? PRO COLONOSCOPY, DIAGNOSTIC 11/27/2011 COLONOSCOPY, DIAGNOSTIC performed by Dion OSULLIVAN at [facility] ENDOSCOPY ??? PRO COLONOSCOPY, DIAGNOSTIC 07/13/2014 COLONOSCOPY, DIAGNOSTIC performed by Dion Osullivan MD at [facility] ENDOSCOPY ??? PRO SIGMOIDOSCOPY, DIAGNOSTIC 03/16/2012 FLEXIBLE SIGMOIDOSCOPY performed by YUDI MALLOY at [facility] ENDOSCOPY ??? UPPER GI ENDOSCOPY, EXAM 10/01/2012 UPPER GI ENDOSCOPY performed by Dion OSULLIVAN at [facility] ENDOSCOPY Social History Socioeconomic History ??? [...] 9:00 AM EDT Office [place] [address] Dion Osullivan MD [facility] [place] [address] 09/01/2024 9:40 AM EDT Office Visit Cardiology at [address] [place] [phone] Franky Shaver MD [facility] [place] [address] 09/01/2024 11:20 AM EDT Office Visit Dermatology at [facility] [address] [place] [address] Gómez Mercer MD [facility] [place] [address] 09/21/2024 2:45 PM EDT Office Visit [place] [phone] Trung Hoyos MD [facility] [place] [address] documented as of this encounter Procedures Procedure [...] [facility] [place] Neutrophil % 61.6 % [facility] LABORAT[facility] Neutrophil Absolute 4.08 1.70 - 6.10 x10(3)/[facility] LABORATORY Lymph % 27.2 % [facility] Lymphocytes Abs 1.8 0.9 - 3.2 x10(3)/[facility] LABORATORY Monocyte % 6.9 % [facility] Monocyte Abs 0.5 0.3 - 0.9 x10(3)/[facility] LABORATORY Eos % 2.9 % [facility] Eosinophils Abs 0.2 0.0 - 0.4 x10(3)/[facility] LABORATORY Basophil % 0.8 % [facility] Baso Absolute 0.0 0.0 - 0.1 x10(3)/[facility] LABORATORY Immature Gran % 0.60 % [facility] Comment: Immature granulocytes(IG's)percentage and absolute count will include metamyelocytes, myelocytes, and promyelocytes. Blood smears from CBCs yielding IG's will be scanned manually for concordance. If this scan disagrees with the automated IG or if promyelocytes are noted, a manual differential will be performed. Immature Gran Absolute 0.04 0.00 - 0.04 x10(3)/[facility] LABORATORY Blood specimen (specimen) 11/02/2018 2:35 PM EST 11/02/2018 2:42 PM EST Narrative Resulting Agency Comment Spec In Lab Marcelle Weinberg FURNACE ERECTOR HEMATOLOGY ORDERA BLES [facility] [place] [address] * (ABNORMAL) Hemogram (11/02/2018 2:35 PM EST) Pathologist [facility] White Blood Cell 6.6 4.0 - 9.5 x10(3)/[facility] LABORATORY Red Blood Cell 4.08(L) 4.58 - 5.54 x10(6)/mc L [facility] Hemoglobin 13.1(L) 13.7 - 16.5 gm/dL [facility] Hematocrit 40.0(L) 40.5 - 48.5 % [facility] Mean Cell Volume 98.0(H) 82.9 - 93.1 fL [facility] Mean Cell Hemoglobin 32.1 27.5 - 32.1 pg [facility] Mean Cell Hemoglobin Concentration 32.8 32.0 - 35.7 gm/dL [facility] Platelet 236 145 - 357 x10(3)/[facility] LABORATORY RDW Standard Deviation 44.3 36.0 - 45.0 [facility] LABORATORY RDW coefficient of variation 12.3 11.4 - 13.8 % [facility] Mean Platelet Volume 10.6 7.6 - 12.9 [facility] LABORATORY NRBC% auto 0.0 % [facility] NRBC Absolute 0.000 0.000 - 0.000 x10(3)/[facility] LABORATORY Blood specimen (specimen) 11/02/2018 2:35 PM EST 11/02/2018 2:42 PM EST Narrative Resulting Agency Comment Spec In Lab Marcelle Weinberg FURNACE ERECTOR HEMATOLOGY ORDERA BLES [facility] [place] [address] * (ABNORMAL) CRP, acute inflammation (11/02/2018 2:35 PM EST) [facility] C-Reactive Protein 5.0(H) <=4.9 mg/L [facility] Blood specimen (specimen) 11/02/2018 2:35 PM EST 11/02/2018 2:42 PM EST Narrative Resulting Agency Comment Spec In Lab Marcelle Weinberg FURNACE ERECTOR CHEMISTRY ORDERAB LES Performing Organization Address City/[facility]/ZIP Co de Phone Number [facility] [place] [address] * (ABNORMAL) Sedimentation rate (11/02/2018 2:35 PM EST) Sedimentation Rate Automated 27(H) 0 - 15 mm/hr [facility] Blood specimen (specimen) 11/02/2018 2:35 PM EST 11/02/2018 2:42 PM EST Narrative Resulting Agency Comment Spec In Lab Marcelle Weinberg FURNACE ERECTOR HEMATOLOGY ORDERA BLES Performing Organization Address [facility] Co de Phone Number [facility] [place] [address] * (ABNORMAL) Comprehensive metabolic panel (non-fasting) (11/02/2018 2:35 PM EST) Glucose 87 65 - 199 mg/dL [facility] Comment:Diabetes: >=200 mg/d L plus symptoms Blood Urea Nitrogen 15 10 - 20 mg/dL [facility] Creatinine 1.03 0.80 - 1.50 mg/dL [facility] Sodium 140 135 - 145 mmol/L [facility] Potassium 4.3 3.5 - 5.0 mmol/L [facility] Comment: Please note: ??Patients with WBC >100,000 may have falsely elevated Potassium levels. ??For accurate Potassium quantification in these patients send serum separator tube (gold top) for subsequent determinations. ??Contact the Clinical Chemistry Laboratory if there are any questions. Chloride 103 98 - 107 mmol/L [facility] Carbon Dioxide 26 22 - 31 mmol/L [facility] Anion Gap 11 5 - 15 mmol/L [facility] Calcium 9.7 8.5 - 10.5 mg/dL [facility] Protein, Total 8.1(H) 6.1 - 8.0 gm/dL [facility] Albumin 4.0 3.2 - 5.2 gm/dL [facility] Aspartate Aminotransferase 12 0 - 39 unit/L [facility] Alanine Aminotransferase 14 0 - 55 unit/L [facility] Alkaline Phosphatase 73 40 - 120 unit/L [facility] Bilirubin, Total 0.4 0.2 - 1.3 mg/dL [facility] Est Glomerular Filtration Rate 73 >=60 mL/min/1. 73 m?? [facility] Comment: The eGFR was calculated using the CKD-EPI equation. As with all creatinine based estimates of kidney function, eGFR values calculated with the CKD-EPI equation are not accurate in patients with acute kidney failure, extremes of body mass or the acutely ill. [email or web address]/[facility]nkf eGFR 85 >=60 mL/min/1. 73 m?? [facility] Comment: The eGFR was calculated using the CKD-EPI equation. As with all creatinine based estimates of kidney function, eGFR values calculated with the CKD-EPI equation are not accurate in patients with acute kidney failure, extremes of body mass or the acutely ill. [email or web address]nkf Blood specimen (specimen) 11/02/2018 2:35 PM EST 11/02/2018 2:42 PM EST Narrative Resulting Agency Comment Spec In Lab Marcelle Weinberg FURNACE ERECTOR CHEMISTRY ORDERAB LES [facility] [place] [address] documented in this encounter Visit Diagnoses Diagnosis Left sided colitis without complications Left sided ulcerative (chronic) colitis documented in this encounter Care Teams [employer] French Teacher Relationship Specialty Start Date End Date Maximilian Fall MD [address] [place] [address] PCP - General 10/01/11 02/13/21 documented as of this encounter
--- OUTSIDE RECORDS SUMMARY | 2024-07-20 13:38 | XMS_ITS | Encounter Summary ---
Author Organization [facility] Address [facility] [place] [address] Care Team Providers Care Asphalt Layer Name Role Phone Maximilian Fall MD Primary Care Provider [phone] Reason for Visit * Reason Comments Follow-up Encounter Details Date Type Department Care Team (Latest Contact Info) Description 11/10/2016 8:30 AM EST Office [place] [address] Dion Barlow MD [facility] [place] [address] Ulcerative rectosigmoiditis with rectal bleeding Social History [...] the sigmoid nl ?? Repeat exam 11/27/11 ([facility]): mildly active colitis [...] months. 20 min of this 25 min cmrq-bi-bvmq visit was spent counseling the patient in the issues outlined above. Davina Barlow MD Surface Ship Usw Supervisorcardiograph operator Section of Gastroenterology [place] [address] documented in this encounter Plan of Treatment Upcoming Encounters Date Type Department Care Team (Late st Contact Info) Description 08/15/2024 9:00 AM EDT Office [place] [address] Dion Barlow MD [facility] [place] [address] 09/01/2024 9:40 AM EDT Office Visit Cardiology at [address] [phone] Franky Shaver MD [facility] [place] [address] 09/01/2024 11:20 AM EDT Office Visit Dermatology at [facility] [address] [place] [address] Gómez Mercer MD [facility] DR [place] [address] 09/21/2024 2:45 PM EDT Office Visit Pain and Spine Center at [facility], [place] [address] Trung Hoyos MD [facility] [place] [address] Scheduled Orders Name Type Priority Associated Diagnoses Orde r Schedule COLONOSCOPY Procedures Routine Ulcerative rectosigmoiditis with rectal bleeding Ordered: 11/10/2016 documented as of this encounter Visit Diagnoses Diagnosis Ulcerative rectosigmoiditis with rectal bleeding documented in this encounter Care Teams Asphalt Layer Relationship Specialty Start Date End Date Maximilian Fall MD [address] [place] [address] PCP - General 10/01/11 02/13/21 documented as of this encounter
--- OUTSIDE RECORDS SUMMARY | 2024-07-20 13:38 | XMS_ITS | Encounter Summary ---
Author Organization [facility] Address [facility] [place] [address] Care Team Providers Care Environmental Protection Inspector Name Role Phone Maximilian Fall MD Primary Care Provider [phone] Encounter Details Date Type Department Care Team (Late st Contact Info) Description 11/05/2015 [place] [phone] Bethany Trivedi, RN Social History Tobacco Use [...] 9:00 AM EDT [place] [phone] Dion Barlow MD [facility] [place] [address] 09/01/2024 9:40 AM EDT Office Visit Cardiology at [address] [phone] Franky Shaver MD [facility] [place] [address] 09/01/2024 11:20 AM EDT Office Visit Dermatology at [facility] [address] [place] [address] Gómez Mercer MD [facility] [place] [address] 09/21/2024 2:45 PM EDT Office Visit [place] [phone] Trung Hoyos MD [facility] [place] [address] documented as of this encounter Results * (ABNORMAL) Sedimentation rate (11/06/2015 10:24 AM EST) Sedimentation Rate Automated 22(H) 0 - 15 mm/hr [facility] [employer] Blood specimen (specimen) 11/06/2015 10:24 AM EST 11/06/2015 10:28 AM EST Narrative Resulting Agency Comment Spec In Lab Dion Barlow MD HEMATOLOGY ORDERABLE S [facility]ILLENNIUM * (ABNORMAL) Comprehensive metabolic panel (non-fasting) (11/06/2015 10:24 AM EST) [facility] Glucose 81 65 - 199 mg/dL [facility] Comment:Diabetes: >=200 mg/d L plus symptoms Blood Urea Nitrogen 14 10 - 20 mg/dL [facility] Creatinine 1.15 0.80 - 1.50 mg/dL [facility] Comment: Please note that the pediatric reference intervals supplied above were not validated at [facility]. Results from pediatric patients should be interpreted [...] the following links into your internet browser. [email or web address] Blood specimen (specimen) 11/06/2015 10:24 AM EST 11/06/2015 10:28 AM EST Narrative Resulting Agency Comment Spec In Lab L Karthik Barlow MD CHEMISTRY ORDERABLES Performing Organization Address [facility] de Phone Number [facility] FREDERICK * High Sensitivity CRP (11/06/2015 10:24 AM EST) C-Reactive Protein High Sensitivity 7.9 mg/L [facility] Comment: Interpretations: 1) For accurate [...] Barlow MD CHEMISTRY ORDERABLES Performing Organization Address [facility] Phone Number DURGA FREDERICK documented in this encounter Visit Diagnoses Diagnosis Ulcerative colitis, without complications Diarrhea documented in this encounter Care Teams Environmental Protection Inspector Relationship Specialty Start Date End Date Maximilian Fall MD [address] [place] [address] [address] [place] [address] PCP - General 10/01/11 02/13/21 documented as of this encounter
--- OUTSIDE RECORDS SUMMARY | 2024-07-20 13:38 | XMS_ITS | Encounter Summary ---
Author Organization [facility] [place] [address] Care Team Providers Care Painter Railroad Car Name Role Phone Maximilian Fall MD Primary Care Provider [phone] Encounter Details Date Type Department Care Team (Late st Contact Info) Description 07/07/2016 [place] [phone] Bethany Trivedi RN Social History Tobacco Use [...] 9:00 AM EDT Office [place] [address] Dion Barlow MD [facility] [place] [address] 09/01/2024 9:40 AM EDT Office Visit Cardiology at [address] [phone] Franky Shaver MD [facility] [address] 09/01/2024 11:20 AM EDT Office Visit Dermatology at [facility] [address] [place] [address] Gómez Mercer MD [facility] DR EDD[place] [address] 09/21/2024 2:45 PM EDT Office Visit [place] [phone] Trung Hoyos MD [facility] [place] [address] documented as of this encounter Results * [...] - GENER AL ORDERABLES Performing Organization Address [facility]/ZIP Co de Phone Number [facility] [place] [address] * (ABNORMAL) Sedimentation rate (07/14/2016 12:21 PM EDT) Sedimentation Rate Automated 17(H) 0 - 15 mm/hr [facility] Blood specimen (specimen) 07/14/2016 12:21 PM EDT 07/14/2016 12:29 PM EDT Narrative Resulting Agency Comment Spec In Lab L Karthik Barlow MD HEMATOLOGY ORDERABLE S Performing Organization Address [facility] Co de Phone Number [facility] [place] [address] * Comprehensive metabolic panel (non-fasting) (07/14/2016 12:21 [...] LABORATORY Est Glomerular Filtration Rate >60 >=60 [facility] Comment: This estimated GFR [...] the following links into your internet browser. [email or web address]/DHnkdep http://[employer]/DHMCnkf Blood specimen (specimen) 07/14/2016 12:21 PM EDT 07/14/2016 12:29 PM EDT Narrative Resulting Agency Comment Spec In Lab L Karthik Barlow MD CHEMISTRY ORDERABLES [facility] [place] [address] * High Sensitivity CRP (07/14/2016 12:21 PM EDT) C-Reactive Protein High Sensitivity 4.8 mg/L [facility] Comment: Interpretations: 1) For accurate [...] Barlow MD CHEMISTRY ORDERABLES [facility] [place] [phone] documented in this encounter Visit Diagnoses Diagnosis Chronic ulcerative enterocolitis, unspecified complication Acute amebic dysentery Acute amebic dysentery without mention of abscess documented in this encounter Care Teams Painter Railroad Car Relationship Specialty Start Date End Date Maximilian Fall MD [address] [place] [address] [address] PCP - General 10/01/11 02/13/21 documented as of this encounter
--- OUTSIDE RECORDS SUMMARY | 2024-07-20 13:38 | XMS_ITS | Encounter Summary ---
Author Organization [facility] Address [facility] [place] [address] Care Team Providers Care Process Environmental Technician Name Role Phone Maximilian Fall MD Primary Care Provider [phone] Reason for Visit * Reason Comments Follow-up Encounter Details Date Type Department Care Team (Late st Contact Info) Description 05/03/2018 8:30 AM EDT Office [place] [address] Dion Barlow MD [facility] [place] [address] Ulcerative pancolitis with complication Social History Tobacco [...] Overview Note: ? Colonoscopy 04/08/10 (Dr. Gomes [facility]) - inflammation only within the rectum and sigmoid; extent of the exam was to the hepatic flexure; biopsies proximal to the sigmoid nl ?? Repeat exam 11/27/11 ([facility] mildly active colitis in the sigmoid colon [...] visit. 15 min of this 25 min [id number] visit was spent counseling the patient in the issues outlined above. Davina Barlow MD [facility] Section of [place] [address] CC: Maximilian Fall MD [address] [place] [address] documented in this encounter Miscellaneous Notes * Addendum Note - Izabela Spencer - 05/03/2018 9:35 AM EDTAddended by: IZABELA SPENCER on: 05/03/2018 09:35 AM Modules accepted: Orders documented in this encounter Plan of Treatment Upcoming Encounters Date Type Department Care Team (Late st Contact Info) Description 08/15/2024 9:00 AM EDT Office [place] [address] Dion Barlow MD [facility] [place] [address] 09/01/2024 9:40 AM EDT Office Visit Cardiology at [address] [place] [address] Franky Shaver MD [facility] [place] [address] 09/01/2024 11:20 AM EDT Office Visit Dermatology at [facility] [address] [place] [address] Gómez Mercer MD [facility] DR EDDIE [place] [address] 09/21/2024 2:45 PM EDT Office Visit Pain and Spine Center at [facility] [place] [phone] Trung Hoyos MD [facility] [place] [address] documented as of this encounter Procedures Procedure [...] 9:46 AM EDT) Neutrophil % 62.5 % [facility] Neutrophil Absolute 3.86 1.70 - 6.10 x10(3)/[facility] LABORATORY Lymph % 27.2 % [facility] Lymphocytes Abs 1.7 0.9 - 3.2 x10(3)/[facility] LABORATORY Monocyte % 7.1 % [facility] Monocyte Abs 0.4 0.3 - 0.9 x10(3)/[facility] LABORATORY Eos % 2.1 % [facility] Eosinophils Abs 0.1 0.0 - 0.4 x10(3)/[facility] LABORATORY Basophil % 0.6 % [facility] Baso Absolute 0.0 0.0 - 0.1 x10(3)/[facility] LABORATORY Immature Gran % 0.50 % [facility] Comment: Immature granulocytes(IG's)percentage and absolute count will include metamyelocytes, myelocytes, and promyelocytes. Blood smears from CBCs yielding IG's will be scanned manually for concordance. If this scan disagrees with the automated IG or if promyelocytes are noted, a manual differential will be performed. Immature Gran Absolute 0.03 0.00 - 0.04 x10(3)/[facility] LABORATORY Blood specimen (specimen) 05/03/2018 9:46 AM EDT 05/03/2018 10:12 AM EDT Narrative Resulting Agency Comment Spec In Lab L Karthik Barlow MD HEMATOLOGY ORDERABLE S [facility] [place] [address] * (ABNORMAL) Hemogram (05/03/2018 9:46 AM EDT) White Blood Cell 6.2 4.0 - 9.5 x10(3)/mc L [facility] Red Blood Cell 4.02(L) 4.58 - 5.54 x10(6)/ L [facility] Hemoglobin 13.0(L) 13.7 - 16.5 gm/dL [facility] Hematocrit 39.7(L) 40.5 - 48.5 % [facility] Mean Cell Volume 98.8(H) 82.9 - 93.1 fL [facility] Mean Cell Hemoglobin 32.3(H) 27.5 - 32.1 pg [facility] Mean Cell Hemoglobin Concentration 32.7 32.0 - 35.7 gm/dL [facility] Platelet 202 145 - 357 x10(3)/mc L [facility] RDW Standard Deviation 45.3(H) 36.0 - 45.0 fL [facility] RDW coefficient of variation 12.5 11.4 - 13.8 % [facility] Mean Platelet Volume 11.2 7.6 - 12.9 fL [facility] NRBC% auto 0.0 % [facility] NRBC Absolute 0.000 0.000 - 0.000 x10(3)/mc L [facility] Blood specimen (specimen) 05/03/2018 9:46 AM EDT 05/03/2018 10:12 AM EDT Narrative Resulting Agency Comment Spec In Lab L Karthik Barlow MD HEMATOLOGY ORDERABLE S Performing Organization Address City/[facility]/ZIP Co de Phone Number [facility] [place] [address] * CRP, acute inflammation (05/03/2018 9:46 AM EDT) C-Reactive Protein 3.1 <=4.9 mg/L [facility] Blood specimen (specimen) 05/03/2018 9:46 AM EDT 05/03/2018 10:12 AM EDT Narrative Resulting Agency Comment Spec In Lab L Karthik Barlow MD CHEMISTRY ORDERABLES [facility] [place] [address] * Comprehensive metabolic panel (non-fasting) (05/03/2018 9:46 AM EDT) Glucose 110 65 - 199 mg/dL [facility] Comment:Diabetes: >=200 mg/d L plus symptoms Blood Urea Nitrogen 13 10 - 20 mg/dL [facility] Creatinine 0.92 0.80 - 1.50 mg/dL [facility] Sodium 143 135 - 145 mmol/L [facility] Potassium 4.4 3.5 - 5.0 mmol/L [facility] Comment: Please note: ??Patients with WBC >100,000 may have falsely elevated Potassium levels. ??For accurate Potassium quantification in these patients send serum separator tube (gold top) for subsequent determinations. ??Contact the Clinical Chemistry Laboratory if there are any questions. Chloride 105 98 - 107 mmol/L [facility] Carbon Dioxide 27 22 - 31 mmol/L [facility] Anion Gap 11 5 - 15 mmol/L [facility] Calcium 9.9 8.5 - 10.5 mg/dL [facility] Protein, Total 7.7 6.1 - 8.0 gm/dL [facility] Albumin 4.1 3.2 - 5.2 gm/dL [facility] Aspartate Aminotransferase 11 0 - 39 unit/L [facility] Alanine Aminotransferase 13 0 - 55 unit/L [facility] Alkaline Phosphatase 61 40 - 120 unit/L [facility] Bilirubin, Total 0.3 0.2 - 1.3 mg/dL [facility] Est Glomerular Filtration Rate >60 >=60 [facility] Comment: The reported eGFR should be multiplied by 1.2 for patients. The MDRD is not an appropriate measure of renal function for patients with body mass extremes or in patients with acute kidney failure. http://[employer]/DHnkdep [email or web address]://[employer]/DHMCnkf Blood specimen (specimen) 05/03/2018 9:46 AM EDT 05/03/2018 10:12 AM EDT Narrative Resulting Agency Comment Spec In Lab L Karthik Barlow MD CHEMISTRY ORDERABLES [facility] [place] [address] documented in this encounter Visit Diagnoses Diagnosis Ulcerative pancolitis with complication documented in this encounter Care Teams Process Environmental Technician Relationship Specialty Start Date End Date Maximilian Fall MD [address] [facility] [place] [address] PCP - General 10/01/11 02/13/21 documented as of this encounter
--- OUTSIDE RECORDS SUMMARY | 2024-07-20 13:38 | XMS_ITS | Encounter Summary ---
Author Organization [facility] [place] [address] Care Team Providers Care Speech Therapist Technician Name Role Phone Maximilian Fall MD Primary Care Provider [phone] Reason for Visit * Reason Onset Date Comments Medication Refill 03/26/2018 Encounter Details Date Type Department Care Team (Late st Contact Info) Description 03/26/2018 [place] [address] Bethany Trivedi RN Social History Tobacco Use [...] 9:00 AM EDT [place] [phone] Dion Barlow MD [facility] [place] [address] 09/01/2024 9:40 AM EDT Office Visit Cardiology at [address] [place] [address] Franky Shaver MD [facility] [place] [address] 09/01/2024 11:20 AM EDT Office Visit Dermatology at [facility] [address] [place] [address] Gómez Mercer MD [facility] [place] [address] 09/21/2024 2:45 PM EDT Office Visit [place] [address] Trung Hoyos MD [facility] [place] [address] documented as of this encounter Visit Diagnoses Not on filedocumented in this encounter Care Teams Speech Therapist Technician Relationship Specialty Start Date End Date Maximilian Fall MD [address] [facility] [address] [place] [address] PCP - General 10/01/11 02/13/21 documented as of this encounter
--- OUTSIDE RECORDS SUMMARY | 2024-07-20 13:38 | XMS_ITS | Encounter Summary ---
Author Organization [facility] Address [facility] [place] [address] Care Team Providers Care Primary Special Education Teacher Name Role Phone Maximilian Fall MD Primary Care Provider [phone] Reason for Visit * Reason Comments Follow-up Encounter Details Date Type Department Care Team (Late st Contact Info) Description 04/08/2016 1:30 PM EDT Office Visit [place] [address] Marcelle Weinberg, JAZMINE [facility] [place] [address] Ulcerative chronic pancolitis, unspecified complication Social History [...] Overview Note: ?? Colonoscopy 04/08/10 ([facility] [...] COLONOSCOPY, DIAGNOSTIC performed by Dion OSULLIVAN at [facility] ??? Pro sigmoidoscopy, diagnostic 03/16/2012 FLEXIBLE SIGMOIDOSCOPY performed by YUDI MALLOY at [facility] ??? Upper gi endoscopy, exam 10/01/2012 UPPER GI ENDOSCOPY performed by Dion OSULLIVAN at [facility] ??? Pro colonoscopy, diagnostic 07/13/2014 COLONOSCOPY, DIAGNOSTIC performed by Dino Osullivan MD at [facility] No family history on file. [...] 9:00 AM EDT Office Visit [place] [address] Dion Osullivan MD [facility] [place] [address] 09/01/2024 9:40 AM EDT Office Visit Cardiology at [address] [address] Franky Shaver MD [facility] [place] [address] 09/01/2024 11:20 AM EDT Office Visit Dermatology at [facility] [address] [place] [phone] Gómez Mercer MD [facility] [address] [place] [address] 09/21/2024 2:45 PM EDT Office Visit [facility] [place] [phone] Trung Hoyos MD [facility] [place] [address] documented as of this encounter Visit Diagnoses Diagnosis Ulcerative chronic pancolitis, unspecified complication documented in this encounter Care Teams Primary Special Education Teacher Relationship Specialty Start Date End Date Maximilian Fall MD [address] [place] [address] PCP - General 10/01/11 02/13/21 documented as of this encounter
--- OUTSIDE RECORDS SUMMARY | 2024-07-20 13:38 | XMS_ITS | Encounter Summary ---
Author Organization [facility] [place] [address] Care Team Providers Care Commercial Engineer Name Role Phone Maximilian Fall MD Primary Care Provider [phone] Encounter Details Date Type Department Care Team (Latest Contact Info) Description 07/18/2016 2:18 PM EDT - 07/18/2016 11:59 PM EDT [place] [address] Left sided colitis, unspecified complication; Chronic ulcerative [...] 9:00 AM EDT Office [place] [address] Dion Barlow MD [facility] [place] [address] 09/01/2024 9:40 AM EDT Office Visit Cardiology at [address] [phone] Franky Shaver MD [facility] [place] [address] 09/01/2024 11:20 AM EDT Office Visit Dermatology at [facility] [address] [place] [address] Gómez Mercer MD [facility] DR [place] [address] 09/21/2024 2:45 PM EDT Office Visit Pain and Spine Center at [facility] [place] [address] Trung Hoyos MD [facility] [place] [address] documented as of this encounter Procedures Procedure Name Priority Date/Time Associated Diagnosis Comments CAMPYLOBACTER ANTIGEN Routine 07/18/2016 2:32 PM EDT Chronic ulcerative enterocolitis, unspecified complication Acute amebic dysentery C. DIFFICILE SCREEN Routine 07/18/2016 2 :32 PM EDT Chronic ulcerative enterocolitis, unspecified complication Acute amebic dysentery STOOL CULTURE SCREEN ([facility]/CGP/APD/NLH) Routine 07/18/2016 2:27 PM EDT Chronic ulcerative enterocolitis, unspecified complication Acute amebic dysentery CRYPTOSPORIDIUM OOCYST ANTIGEN ([facility]/CGP/APD) Routine 07/18/2016 2:27 PM EDT Left sided colitis, unspecified complication SHIGA TOXIN ASSAY Routine 07/18/2016 2:2 7 PM EDT Chronic ulcerative enterocolitis, unspecified complication Acute amebic dysentery GIARDIA/CRYPTOSPORIDIUM ANTIGENS ([facility]/CGP/APD/NLH) Routine 07/18/2016 2:27 PM EDT Left sided colitis, unspecified complication GIARDIA ANTIGEN ([facility]/CGP/APD/NLH) Routine 07/18/2016 2:27 PM EDT Left sided colitis, unspecified complication STOOL CULTURE Routine 07/18/2016 2:27 PM EDT Chronic ulcerative enterocolitis, unspecified complication Acute amebic dysentery documented in this encounter Results * Campylobacter Antigen (07/18/2016 2:32 PM EDT) Pathologist [facility] Campylobacter Ag Immunoassay Negative for Campylobacter Antigen [facility] Stool specimen (specimen) 07/18/2016 2:32 PM EDT 07/18/2016 2:32 PM EDT Narrative Resulting Agency Comment Spec In Lab L Karthik Barlow MD MICROBIOLOGY - GENER AL ORDERABLES Performing Organization Address City/[facility]/ZIP Co de Phone Number [facility] [place] [address] * C. Difficile Screen (07/18/2016 2:32 PM EDT) C Diff Interp Negative Negative [facility] Comment: C. diff ??Negative Clostridium difficile is not present in the specimen. If patient is having diarrhea suspected to be from an infectious cause, then Contact Precautions are still required. Stool specimen (specimen) 07/18/2016 2:32 PM EDT 07/18/2016 2:32 PM EDT Narrative Resulting Agency Comment Spec In Lab L Karthik Barlow MD MICROBIOLOGY - GENER AL ORDERABLES Performing Organization Address [facility] Co de Phone Number [facility] [place] [place] [address] * Shiga Toxin Detection (07/18/2016 2:27 PM EDT) Shiga Toxin Assay EIA Negative for Shiga Toxin 1 EIA Negative for Shiga Toxin 2 [facility] Stool specimen (specimen) 07/18/2016 2:27 PM EDT 07/18/2016 2:32 PM EDT Narrative Resulting Agency Comment Spec In Lab Dion Barlow MD MICROBIOLOGY - GENER AL ORDERABLES Performing Organization Address City/[facility] Co de Phone Number [facility] [place] [address] * Stool culture (07/18/2016 2:27 PM EDT) Stool Culture No enteric pathogens isolated [facility] Stool specimen (specimen) 07/18/2016 2:27 PM EDT 07/18/2016 2:32 PM EDT Narrative Resulting Agency Comment Spec In Lab L Karthik Barlow MD MICROBIOLOGY - GENER AL ORDERABLES Performing Organization Address [facility] Co de Phone Number [facility] [place] [address] * Cryptosporidium Oocyst Antigen (07/18/2016 2:27 PM EDT) Cryptosporidium Antigen Negative Negative [facility] Stool specimen (specimen) 07/18/2016 2:27 PM EDT 07/18/2016 2:32 PM EDT Narrative Resulting Agency Comment Spec In Lab L Karthik Barlow MD MICROBIOLOGY - GENER AL ORDERABLES Performing Organization Address [facility] Co de Phone Number [facility] [place] [address] * Giardia antigen (07/18/2016 2:27 PM EDT) Giardia Antigen Negative Negative [facility] Comment:Examination for othe r intestinal parasites requires foreign travel history. Stool specimen (specimen) 07/18/2016 2:27 PM EDT 07/18/2016 2:32 PM EDT Narrative Resulting Agency Comment Spec In Lab L Karthik Barlow MD MICROBIOLOGY - GENER AL ORDERABLES Performing Organization Address [facility] Co de Phone Number [facility] [place] [address] documented in this encounter Visit Diagnoses Diagnosis Left sided colitis, unspecified complication Chronic ulcerative enterocolitis, unspecified complication Acute amebic dysentery Acute amebic dysentery without mention of abscess documented in this encounter Care Teams Commercial Engineer Relationship Specialty Start Date End Date Maximilian Fall MD [address] [place] [address] PCP - General 10/01/11 02/13/21 documented as of this encounter
--- OUTSIDE RECORDS SUMMARY | 2024-07-20 13:38 | XMS_ITS | Encounter Summary ---
Author Organization Formerly [facility] [place] [address] Care Team Providers Care Apple Peeler Operator Name Role Phone Maximilian Fall MD Primary Care Provider [phone] Reason for Visit * Reason Comments Follow-up Encounter Details Date Type Department Care Team (Late st Contact Info) Description 11/06/2015 11:00 AM EST Office [place] [address] Marcelle Weinberg, JAZMINE [facility] [place] [address] Chronic ulcerative enterocolitis, unspecified complication; Abdominal pain, [...] Progress Notes * Marcelle Weinberg Dg Conte, MACHINE SHOP APPRENTICE - 11/06/2015 10:28 AM EST Patient Active Problem List Diagnosis ??? Ulcerative colitis Overview Note: ?? Colonoscopy 04/08/10 (Dr. Gomes [facility]) - inflammation only within the rectum [...] by Dion OSULLIVAN at [facility] ??? Pro sigmoidoscopy, diagnostic 03/16/2012 FLEXIBLE SIGMOIDOSCOPY performed by YUDI MALLOY at [facility] ??? Upper gi endoscopy, exam 10/01/2012 UPPER GI ENDOSCOPY performed by Dion OSULLIVAN at [facility] ??? Pro colonoscopy, diagnostic 07/13/2014 COLONOSCOPY, DIAGNOSTIC performed by Dion Osullivan MD at [facility] Physical Exam Constitutional: He appears well-developed [...] 9:00 AM EDT Office [place] [address] Dion Osullivan MD [facility] [place] [address] 09/01/2024 9:40 AM EDT Office Visit Cardiology at [address] [place] [address] Franky Shaver MD [facility] [place] [address] 09/01/2024 11:20 AM EDT Office Visit Dermatology at [facility] [address] [place] [address] Gómez Mercer MD [facility] [place] [address] 09/21/2024 2:45 PM EDT Office Visit Pain and Spine Center at [facility] [place] [address] Trung Hoyos MD [facility] [address] documented as of this encounter Results * C. Difficile Screen (11/06/2015 2:30 PM EST) Pathologist [facility] C Diff Interp Negative Negative CERNER MILLENNIUM Stool specimen (specimen) 11/06/2015 2:30 PM EST 11/06/2015 2:30 PM EST Narrative Resulting Agency Comment Spec In Lab L Karthik Osullivan MD MICROBIOLOGY - GENER AL ORDERABLES [facility] * (ABNORMAL) Urinalysis with reflex Culture [...] Urine Dipstick Hazy(A) Clear CERNER MILLENNIUM Specific [place] Urine Automated 1.020 1.002 - 1.030 CERNER [...] complication documented in this encounter Care Teams Apple Peeler Operator Relationship Specialty Start Date End Date Maximilian Fall MD [address] [place] [address] PCP - General 10/01/11 02/13/21 documented as of this encounter
--- OUTSIDE RECORDS SUMMARY | 2024-07-20 13:38 | XMS_ITS | Encounter Summary ---
Author Organization [facility] Address [facility] [place] [address] Care Team Providers Care Rn Telemetry Name Role Phone Maximilian Fall MD Primary Care Provider [phone] Encounter Details Date Type Department Care Team (Latest Contact Info) Description 02/12/2017 10:14 AM EDT - 02/12/2017 1:50 PM EDT Hospital Encounter [place] [address] Dion Barlow MD [facility] [place] [address] Discharge Disposition: Home Social History Tobacco Use [...] - 02/12/2017 12:37 PM EDT Please call [phone] before 8pm with problems, questions or concerns, after 5pm call the Hospital at [phone] and ask to speak to the Restaurant Area Manager ammunition assembly laborer and the dissolver operator will contact that person for you. [...] sent through Care Everywhere. * COLONOSCOPY: POST-OP (ZAMBIAN) documented in this encounter Medications at Time [...] 9:00 AM EDT Office [place] [address] Dion Barlow MD [facility] [place] [address] 09/01/2024 9:40 AM EDT Office Visit Cardiology at [address] [place] [address] Franky Shaver MD [facility] [place] [address] 09/01/2024 11:20 AM EDT Office Visit Dermatology at [facility] [address] [place] [address] Gómez Mercer MD [facility] DR EDD[place] [address] 09/21/2024 2:45 PM EDT Office Visit [facility] [place] [address] Trung Hoyos MD [facility] [place] [address] documented as of this encounter Procedures Procedure [...] PM EDT 02/12/2017 12:16 PM EDT Narrative [facility] - 02/12/2017 12:16 PM EDT Specimen requisition ordered. ??Separate Pathology report to follow L Karthik Barlow MD PATHOLOGY/[place] [address] * Specimen to Pathology (surgical or derm) (02/12/2017 12:16 PM EDT) AP Specimen 02/12/2017 12:1 6 PM EDT 02/12/2017 12:16 PM EDT Narrative [facility] - 02/12/2017 12:16 PM EDT Specimen requisition ordered. ??Separate Pathology report to follow L Karthik Barlow MD PATHOLOGY/[place] [address] * Specimen to Pathology (surgical or derm) (02/12/2017 12:16 PM EDT) AP Specimen 02/12/2017 12:1 6 PM EDT 02/12/2017 12:16 PM EDT Narrative [facility] - 02/12/2017 12:16 PM EDT Specimen requisition ordered. ??Separate Pathology report to follow L Karthik Barlow MD PATHOLOGY/[place] [address] * Specimen to Pathology (surgical or derm) (02/12/2017 12:16 PM EDT) AP Specimen 02/12/2017 12:1 6 PM EDT 02/12/2017 12:16 PM EDT Narrative [facility] - 02/12/2017 12:16 PM EDT Specimen requisition ordered. ??Separate Pathology report to follow L Karthik Barlow MD PATHOLOGY/CYTOLOGY Ozzie MIKE [facility] [place] [address] * Surgical Pathology Report (02/12/2017 12:15 PM EDT) Final Diagnosis [id number] ?Location: 4T; EA07; A The signing pathologist [...] ing: (T2) ??ejr 02/13/2017 4:23 PM EDT [facility] GI Biopsy 02/12/2017 12:1 5 PM EDT 02/12/2017 12:15 PM EDT GI Biopsy 02/12/2017 12:1 5 PM EDT 02/12/2017 12:15 PM EDT GI Biopsy 02/12/2017 12:1 5 PM EDT 02/12/2017 12:15 PM EDT GI Biopsy 02/12/2017 12:1 5 PM EDT 02/12/2017 12:15 PM EDT L Karthik Barlow MD PATHOLOGY/CYTOLOGY O CEE [facility] [place] [address] * COLONOSCOPY (02/12/2017 11:40 AM EDT) COLONOSCOPY [facility] Endoscopy ___ Procedure Date: 02/12/2017 11:40 AM ? Patient Name: Brian Rodriguez ? Date of : 1950 ? Age: 66 ? Order #: [id number] ? Instrument Name: [id number] ? ___ Procedure: ? Colonoscopy Indications: ? High risk colon cancer surveillance: ? Ulcerative colitis Patient Profile: ? This is a 66 year old male. This ? patient has left-sided ulcerative ? colitis on sulfasalazine and ? Cortifoam and is experiencing mild ? symptoms. Providers: ? Davina Barlow MD, Vandana Love ? Mike, RONY, Sonal [facility], ? Cleaner Assistant Referring MD: ?Maximilian Fall MD Medicines: [...] preparation was evaluated using ? the BBPS ([place] Bowel Preparation ? Scale) with scores of: [...] Glucose, POC 132 65 - 199 mg/dL [facility] Comment: Supplemental ranges: <140 mg/dL before meals <180 mg/dL all other times of the day Blood specimen (specimen) 02/12/2017 10:29 AM EDT 02/12/2017 10:29 AM EDT Doin Barlow MD POINT OF CARE TEST O RDMELISSA Performing Organization Address City/[facility]/ZIP Co de Phone Number [facility] [place] [address] documented in this encounter Visit Diagnoses Not [...] RN) documented in this encounter Care Teams Rn Telemetry Relationship Specialty Start Date End Date Maximilian Fall MD [address] [place] [address] PCP - General 10/01/11 02/13/21 documented as of this encounter
--- OUTSIDE RECORDS SUMMARY | 2024-07-20 13:38 | XMS_ITS | Encounter Summary ---
Author Organization [facility] [place] [address] Care Team Providers Care Policeman Name Role Phone Maximilian Fall MD Primary Care Provider [phone] Reason for Visit * Reason Onset Date Comments Medication Refill 02/18/2017 Encounter Details Date Type Department Care Team (Late st Contact Info) Description 02/18/2017 Refill [place] [address] Bethany Trivedi, RN Pain in right hip; [...] 9:00 AM EDT Office Visit [place] [address] Dion Barlow MD [facility] [place] [address] 09/01/2024 9:40 AM EDT Office Visit Cardiology at [address] [place] [address] Franky Shaver MD [facility] [place] [address] 09/01/2024 11:20 AM EDT Office Visit Dermatology at [facility] [address] [place] [address] Gómez Mercer MD [facility] DR EDDIE [place] [address] 09/21/2024 2:45 PM EDT Office Visit [facility] [place] [address] Trung Hoyos MD [facility] [place] [address] documented as of this encounter Visit Diagnoses Diagnosis Pain in right hip Pain in joint, pelvic region and thigh Chronic ulcerative enterocolitis, unspecified complication documented in this encounter Care Teams Policeman Relationship Specialty Start Date End Date Maximilian Fall MD [address] [place] [address] PCP - General 10/01/11 02/13/21 documented as of this encounter
--- OUTSIDE RECORDS SUMMARY | 2024-07-20 13:38 | XMS_ITS | Encounter Summary ---
Author Organization [facility] [place] [address] Care Team Providers Care Mysql Database Administrator Name Role Phone Maximilian Fall MD Primary Care Provider [phone] Encounter Details Date Type Department Care Team (Late st Contact Info) Description 07/07/2016 Telephone [place] [address] Bethany Trivedi RN Social History Tobacco Use [...] EDT Cortifoam approved 07/07/16 until furhter notice [place] id# [id number] * Telephone Encounter - Bethany Trivedi RN - 07/07/2016 12:10 PM EDT Formulary exception form sent in for Cortifoam enemas documented in this encounter Plan of Treatment Upcoming Encounters Date Type Department Care Team (Late st Contact Info) Description 08/15/2024 9:00 AM EDT Office Visit [place] [address] Dion Barlow MD [facility] [address] 09/01/2024 9:40 AM EDT Office Visit Cardiology at [address] [place] [address] Franky Shaver MD [facility] [place] [address] 09/01/2024 11:20 AM EDT Office Visit Dermatology at [place] [address] [place] [address] Gómez Mercer MD [facility] [place] [address] 09/21/2024 2:45 PM EDT Office Visit Pain [place] [address] Trung Hoyos MD [facility] [address] documented as of this encounter Visit Diagnoses Not on filedocumented in this encounter Care Teams Mysql Database Administrator Relationship Specialty Start Date End Date Maximilian Fall MD [address] [place] [address] PCP - General 10/01/11 02/13/21 documented as of this encounter
--- OUTSIDE RECORDS SUMMARY | 2024-07-20 13:38 | XMS_ITS | Encounter Summary ---
Author Organization [facility] [place] [address] Care Team Providers Care Med Peds Name Role Phone Maximilian Fall MD Primary Care Provider [phone] Encounter Details Date Type Department Care Team (Late st Contact Info) Description 03/26/2018 Telephone [place] [address] Bethany Trivedi, RN Social History Tobacco Use [...] difficulty getting Cortifoam because it is on manager drilling back order. Has been diarrhea and bleeding [...] EDT Office [place] [address] [facility] [place] [address] 09/01/2024 9:40 AM EDT Office Visit Cardiology at [address] [phone] [facility] [place] [address] 09/01/2024 11:20 AM EDT Office Visit Dermatology at [address] [place] [address] [facility] [address] 09/21/2024 2:45 PM EDT Office Visit [place] [address] [facility] [place] [address] documented as of this encounter Visit Diagnoses Not on filedocumented in this encounter Care Teams Med Peds Relationship Specialty Start Date End Date Maximilian Fall MD [address] [facility] [address] [place] [address] PCP - General 10/01/11 02/13/21 documented as of this encounter
--- OUTSIDE RECORDS SUMMARY | 2024-07-20 13:38 | XMS_ITS | Encounter Summary ---
Author Organization [facility] Address [facility] [place] [address] Care Team Providers Care Green Chain Operator Name Role Phone Maximilian Fall MD Primary Care Provider [phone] Encounter Details Date Type Department Care Team (Late st Contact Info) Description 02/12/2017 11:15 AM EDT - 02/12/2017 12:00 PM EDT Surgery [place] [address] Dion Barlow MD [facility] [place] [address] COLONOSCOPY FLEXIBLE, WITH BX (WRVU 3.56) Social [...] - 02/12/2017 12:37 PM EDT Please call [phone] before 8pm with problems, questions or concerns, after 5pm call the Hospital at [phone] and ask to speak to the Waffle Machine Operator counter professional and the buzzsaw operator helper will contact that person for you. Discharge [...] sent through Care Everywhere. * COLONOSCOPY: POST-OP (BELARUSIAN) documented in this encounter Medications at [...] EDT Office [place] [address] Dion Barlow MD [facility] [place] [address] 09/01/2024 9:40 AM EDT Office Visit Cardiology at [address] [place] [address] Franky Shaver MD [facility] [place] [address] 09/01/2024 11:20 AM EDT Office Visit Dermatology at [facility] [address] [place] [address] Gómez Mercer MD [facility] DR DED[place] [address] 09/21/2024 2:45 PM EDT Office Visit [facility] [place] [address] Trung Hoyos MD [facility] [place] [address] documented as of this encounter Procedures Procedure [...] MD PATHOLOGY/CYTOLOGY O CEE Performing Organization Address City/[facility]/[place] [address] * Specimen to Pathology (surgical or derm) (02/12/2017 12:16 PM EDT) AP Specimen 02/12/2017 12:1 6 PM EDT 02/12/2017 12:16 PM EDT Narrative [facility] - 02/12/2017 12:16 PM EDT Specimen requisition ordered. ??Separate Pathology report to follow L Karthik Barlow MD PATHOLOGY/CYTOLOGY O CEE Performing Organization Address City/[facility]/[place] [address] * Specimen to Pathology (surgical or derm) (02/12/2017 12:16 PM EDT) AP Specimen 02/12/2017 12:1 6 PM EDT 02/12/2017 12:[address] [facility] - 02/12/2017 12:16 PM EDT Specimen requisition ordered. ??Separate Pathology report to follow L Karthik Barlow MD PATHOLOGY/[place] [address] * Specimen to Pathology (surgical or derm) (02/12/2017 12:16 PM EDT) AP Specimen 02/12/2017 12:1 6 PM EDT 02/12/2017 12:16 PM EDT Narrative [facility] - 02/12/2017 12:16 PM EDT Specimen requisition ordered. ??Separate Pathology report to follow L Karthik Barlow MD PATHOLOGY/CYTOLOGY Ozzie MIKE [facility] [place] [address] * Surgical Pathology Report (02/12/2017 12:15 PM EDT) Final Diagnosis [id number] ?Location: 4T; EA07; A The signing pathologist [...] PATHOLOGY/CYTOLOGY O CEE [facility] [place] [address] * COLONOSCOPY (02/12/2017 11:40 AM EDT) COLONOSCOPY [facility] Endoscopy ___ Procedure Date: 02/12/2017 11:40 AM ? Patient Name: Brain Rodriguez ? Date of : 1950 ? Age: 66 ? Order #: [id number] ? Instrument Name: [id number] ? ___ Procedure: ? Colonoscopy Indications: ? High risk colon cancer surveillance: ? Ulcerative colitis Patient Profile: ? This is a 66 year old male. This ? patient has left-sided ulcerative ? colitis on sulfasalazine and ? Cortifoam and is experiencing mild ? symptoms. Providers: ? L. Karthik Barlow MD, Vandana Love ? RONY Mckeon, Sonal [facility], ? Cash Management Coordinator Referring MD: ?Maximilian Fall MD Medicines: ? [...] preparation was evaluated using ? the BBPS ([place] Bowel Preparation ? Scale) with scores of: [...] GENERAL SURGICAL ORD ERABLES Performing Organization Address City/[facility]/ZIP Co de Phone Number PROVATION * POCT [...] CARE TEST O RDMELISSA Performing Organization Address [facility] Co de Phone Number [facility] [place] [address] documented in this encounter Visit Diagnoses Diagnosis [...] RN) documented in this encounter Care Teams Green Chain Operator Relationship Specialty Start Date End Date Maximilian Fall MD [address] [place] [address] PCP - General 10/01/11 02/13/21 documented as of this encounter
--- OUTSIDE RECORDS SUMMARY | 2024-07-20 13:38 | XMS_ITS | Encounter Summary ---
Author Organization [facility] [place] [address] Care Team Providers Care Paint Specialist Name Role Phone Maximilian Fall MD Primary Care Provider [phone] Encounter Details Date Type Department Care Team (Late st Contact Info) Description 11/08/2015 Orders [place] [address] Marcelle Weinberg, SMALL ORDER CUTTER [facility] [place] [address] Urinary tract infection without hematuria, site unspecified [...] this encounter Progress Notes * Marcelle Weinberg, SMALL ORDER CUTTER - 11/08/2015 5:53 PM EST I spoke [...] UA Latest Range: Clear Hazy (A) Spec [place] UA Latest Range: 1.002-1.030 1.020 pH UA [...] 9:00 AM EDT [place] [address] Dion Barlow MD [facility] [place] [address] 09/01/2024 9:40 AM EDT Office Visit Cardiology at [address] [place] [address] Franky Shaver MD [facility] [place] [address] 09/01/2024 11:20 AM EDT Office Visit Dermatology at [address] [place] [address] Gómez Mercer MD [facility] [address] 09/21/2024 2:45 PM EDT Office Visit [place] [address] Trung Hoyos MD [facility] [place] [address] documented as of this encounter Visit Diagnoses Diagnosis Urinary tract infection without hematuria, site unspecified documented in this encounter Care Teams Paint Specialist Relationship Specialty Start Date End Date Maximilian Fall MD [address] [place] [address] PCP - General 10/01/11 02/13/21 documented as of this encounter
--- OUTSIDE RECORDS SUMMARY | 2024-07-20 13:38 | XMS_ITS | Encounter Summary ---
Author Organization [facility] [place] [address] Care Team Providers Care Moss Picker Name Role Phone Maximilian Fall MD Primary Care Provider [phone] Encounter Details Date Type Department Care Team (Latest Contact Info) Description 07/14/2016 11:55 AM EDT Laboratory Appointment Lab [address]L [place] [phone] Chronic ulcerative enterocolitis, unspecified complication; Acute amebic [...] EDT Office [place] [phone] Dion Barlow MD [facility] [place] [address] 09/01/2024 9:40 AM EDT Office Visit Cardiology at [address] [phone] Franky Shaver MD [facility] [place] [address] 09/01/2024 11:20 AM EDT Office Visit Dermatology at [facility] [address] [place] [address] Gómez Mercer MD [facility] DR EDDIE [place] [address] 09/21/2024 2:45 PM EDT Office Visit Pain and Spine Center at [facility] [place] [address] Trung Hoyos MD [facility] [place] [address] documented as of this encounter Procedures Procedure [...] 12:21 PM EDT) Neutrophil % 60.2 % [facility] Neutrophil Absolute 3.77 1.50 - 6.30 x10(3)/[facility] Lymph % 27.2 % [facility] Lymphocytes Abs 1.7 1.0 - 3.6 x10(3)/[facility] Monocyte % 9.0 % [facility] Monocyte Abs 0.6 0.2 - 1.0 x10(3)/[facility] Eos % 2.6 % [facility] Eosinophils Abs 0.2 0.0 - 0.5 x10(3)/[facility] Basophil % 0.5 % [facility] Baso Absolute 0.0 0.0 - 0.2 x10(3)/[facility] Immature Gran % 0.50 % [facility] Comment: Immature granulocytes(IG's)percentage and absolute count will include metamyelocytes, myelocytes, and promyelocytes. Blood smears from CBCs yielding IG's will be scanned manually for concordance. If this scan disagrees with the automated IG or if promyelocytes are noted, a manual differential will be performed. Immature Gran Absolute 0.03 0.00 - 0.05 x10(3)/[facility] Blood specimen (specimen) 07/14/2016 12:21 PM EDT 07/14/2016 12:29 PM EDT Narrative Resulting Agency Comment Spec In Lab L Karthik Barlow MD HEMATOLOGY ORDERABLE S [facility] [place] [address] * (ABNORMAL) Hemogram (07/14/2016 12:21 PM EDT) Pathologist [facility] White Blood Cell 6.2 4.0 - 10.0 x10(3)/mc L [facility] Red Blood Cell 4.11(L) 4.63 - 6.08 x10(6)/mc L [facility] Hemoglobin 13.4(L) 13.7 - 17.5 gm/dL [facility] Hematocrit 40.5 40.0 - 51.0 % [facility] Mean Cell Volume 98.5(H) 79.0 - 92.0 fL [facility] Mean Cell Hemoglobin 32.6(H) 25.6 - 32.2 pg [facility] Mean Cell Hemoglobin Concentration 33.1 32.0 - 36.5 gm/dL [facility] Platelet 214 145 - 370 x10(3)/mc L [facility] RDW Standard Deviation 47.4(H) 35.0 - 46.0 fL [facility] RDW coefficient of variation 13.2 10.9 - 14.4 % [facility] Mean Platelet Volume 11.1 9.0 - 12.0 fL [facility] NRBC% auto 0.0 % [facility] NRBC Absolute 0.000 0.000 - 0.012 x10(3)/mc L [facility] Blood specimen (specimen) 07/14/2016 12:21 PM EDT 07/14/2016 12:29 PM EDT Narrative Resulting Agency Comment Spec In Lab L Karthik Barlow MD HEMATOLOGY ORDERABLE S Performing Organization Address City/[facility]/ZIP Co de Phone Number [facility] [place] [address] * (ABNORMAL) Sedimentation rate (07/14/2016 12:21 PM EDT) Sedimentation Rate Automated 17(H) 0 - 15 mm/hr [facility] Blood specimen (specimen) 07/14/2016 12:21 PM EDT 07/14/2016 12:29 PM EDT Narrative Resulting Agency Comment Spec In Lab L Karthik Barlow MD HEMATOLOGY ORDERABLE S [facility] [place] [address] * Comprehensive metabolic panel (non-fasting) (07/14/2016 12:21 PM EDT) Glucose 147 65 - 199 mg/dL [facility] Comment:Diabetes: >=200 mg/d L plus symptoms Blood Urea Nitrogen 17 10 - 20 mg/dL [facility] Creatinine 1.04 0.80 - 1.50 mg/dL [facility] Comment: Please note that the pediatric reference intervals supplied above were not validated at [facility]. Results from pediatric patients should be interpreted in conjunction to the patient's age, height and muscle mass. Sodium 140 135 - 145 mmol/L [facility] Potassium 4.6 3.5 - 5.0 mmol/L [facility] Comment: Please note: ??Patients with WBC >100,000 may have falsely elevated Potassium levels. ??For accurate Potassium quantification in these patients send serum separator tube (gold top) for subsequent determinations. ??Contact the Clinical Chemistry Laboratory if there are any questions. Chloride 102 98 - 107 mmol/L [facility] Carbon Dioxide 25 22 - 31 mmol/L [facility] Anion Gap 13 5 - 15 mmol/L [facility] Calcium 9.7 8.5 - 10.5 mg/dL [facility] Protein, Total 7.9 6.1 - 8.0 gm/dL [facility] Albumin 4.4 3.2 - 5.2 gm/dL [facility] Aspartate Aminotransferase 15 0 - 39 unit/L [facility] Alanine Aminotransferase 20 0 - 55 unit/L [facility] Alkaline Phosphatase 65 40 - 120 unit/L [facility] Bilirubin, Total 0.4 0.2 - 1.3 mg/dL [facility] Bilirubin, Direct 0.1 0.0 - 0.3 mg/dL [facility] Est Glomerular Filtration Rate >60 [...] the following links into your internet browser. [email or web address] Blood specimen (specimen) 07/14/2016 12:21 PM EDT 07/14/2016 12:29 PM EDT Narrative Resulting Agency Comment Spec In Lab L Karthik Barlow MD CHEMISTRY ORDERABLES [facility] [place] [address] * High Sensitivity CRP (07/14/2016 12:21 PM EDT) [facility] C-Reactive Protein High Sensitivity 4.8 mg/L [facility] Comment: Interpretations: 1) For [...] Lab L Karthik Barlow MD CHEMISTRY ORDERABLES [facility] [place] [place] [address] documented in this encounter Visit Diagnoses Diagnosis Chronic ulcerative enterocolitis, unspecified complication 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
--- OUTSIDE RECORDS SUMMARY | 2024-07-20 13:38 | XMS_ITS | Encounter Summary ---
[place] [address] Care Team Providers Care Stock Preparation Operator Name Role Phone Maximilian Fall MD Primary Care Provider [phone] Encounter Details Date Type Department Care Team (Latest Contact Info) Description 11/06/2015 10:15 AM EST Laboratory Appointment Lab [address] [place] [phone] Ulcerative colitis, without complications; Diarrhea; Pain in [...] EDT Office [place] [address] Dion Barlow MD [facility] [place] [address] 09/01/2024 9:40 AM EDT Office Visit Cardiology at [address] [place] [phone] Franky Shaver MD [facility] [place] [address] 09/01/2024 11:20 AM EDT Office Visit Dermatology at [facility] [address] [place] [phone] Gómez Mercer MD [facility] [place] [address] 09/21/2024 2:45 PM EDT Office Visit Pain [place] [phone] Trung Hoyos MD [facility] [place] [address] documented as of this encounter Procedures Procedure Name Priority Date/Time Associated Diagnosis Comments C. DIFFICILE SCREEN Routine 11/06/2015 2 :30 PM EST Pain in right hip Bilateral low back pain, with sciatica presence unspecified Abdominal pain, unspecified abdominal location Chronic ulcerative enterocolitis, unspecified complication STOOL CULTURE SCREEN ([facility]/CGP/APD/NLH) Routine 11/06/2015 1:49 PM EST Pain in [...] ulcerative enterocolitis, unspecified complication CRYPTOSPORIDIUM OOCYST ANTIGEN ([facility]/CGP/APD) Routine 11/06/2015 1:09 PM EST Pain in right hip Bilateral low back pain, with sciatica presence unspecified Abdominal pain, unspecified abdominal location Chronic ulcerative enterocolitis, unspecified complication GIARDIA/CRYPTOSPORIDIUM ANTIGENS ([facility]/CGP/APD/NLH) Routine 11/06/2015 1:09 PM EST Pain in right hip Bilateral low back pain, with sciatica presence unspecified Abdominal pain, unspecified abdominal location Chronic ulcerative enterocolitis, unspecified complication GIARDIA ANTIGEN ([facility]/CGP/APD/NLH) Routine 11/06/2015 1:09 PM EST Pain in [...] PM EST) C Diff Interp Negative Negative [facility] Stool specimen (specimen) 11/06/2015 2:30 PM EST 11/06/2015 2:30 PM EST Narrative Resulting Agency Comment Spec In Lab L Karthik Barlow MD MICROBIOLOGY - GENER AL ORDERABLES Performing Organization Address [facility] Phone Number [facility] * Shiga Toxin Detection (11/06/2015 1:49 PM EST) Pathologist [facility] Shiga Toxin Assay EIA Negative for Shiga Toxin 1 EIA Negative for Shiga Toxin 2 [facility] Stool specimen (specimen) 11/06/2015 1:49 PM EST 11/06/2015 2:33 PM EST Narrative Resulting Agency Comment Spec In Lab L Karthik Barlow MD MICROBIOLOGY - GENER AL ORDERABLES Performing Organization Address [facility] Phone Number [facility] * Campylobacter Antigen (11/06/2015 1:49 PM EST) Pathologist [facility] Campylobacter Ag Immunoassay Negative for Campylobacter Antigen [facility] Stool specimen (specimen) 11/06/2015 1:49 PM EST 11/06/2015 2:33 PM EST Narrative Resulting Agency Comment Spec In Lab L Karthik Barlow MD MICROBIOLOGY - GENER AL ORDERABLES Performing Organization Address [facility] de Phone Number [facility] * Stool culture (11/06/2015 1:49 PM EST) Stool Culture No enteric pathogens isolated [facility] Stool specimen (specimen) 11/06/2015 1:49 PM EST 11/06/2015 2:33 PM EST Narrative Resulting Agency Comment Spec In Lab L Karthik Barlow MD MICROBIOLOGY - GENER AL ORDERABLES Performing Organization Address [facility] Phone Number [facility] * Cryptosporidium Oocyst Antigen (11/06/2015 1:09 PM EST) Cryptosporidium Antigen Negative Negative [facility] Stool specimen (specimen) 11/06/2015 1:09 PM EST 11/06/2015 2:28 PM EST Narrative Resulting Agency Comment Spec In Lab L Karthik Barlow MD MICROBIOLOGY - GENER AL ORDERABLES Performing Organization Address [facility] Phone Number [facility] * Giardia antigen (11/06/2015 1:09 PM EST) Giardia Antigen Negative Negative [facility] Comment:Examination for othe r intestinal parasites requires foreign travel history. Stool specimen (specimen) 11/06/2015 1:09 PM EST 11/06/2015 2:28 PM EST Narrative Resulting Agency Comment Spec In Lab L Karthik Barlow MD MICROBIOLOGY - GENER AL ORDERABLES Performing Organization Address [facility] Phone Number [facility] * (ABNORMAL) Urine culture (11/06/2015 1:00 PM EST) Urine Culture 50,000-99,000 cfu/ml Escherichia coli(A) [facility] Organism Escherichia coli(A) [facility] Urine specimen obtained by clean catch [...] Barlow MD MICROBIOLOGY - GENER AL ORDERABLES [facility] Existence Before Ess[facility]UM * (ABNORMAL) Urinalysis with reflex Culture (11/06/2015 [...] Urine Dipstick Hazy(A) Clear [facility] Specific [place] Urine Automated 1.020 1.002 - 1.030 CERNER [...] metabolic panel (non-fasting) (11/06/2015 10:24 AM EST) [facility] Glucose 81 65 - 199 mg/dL [facility] Comment:Diabetes: >=200 mg/d L plus symptoms Blood Urea Nitrogen 14 10 - 20 mg/dL [facility] Creatinine 1.15 0.80 - 1.50 mg/dL [facility] Comment: Please note that the pediatric reference intervals supplied above were not validated at [facility]. Results from pediatric patients should be interpreted [...] the following links into your internet browser. [email or web address]/[email or web address] [email or web address]/[email or web address] Blood specimen (specimen) 11/06/2015 10:24 AM EST 11/06/2015 10:28 AM EST Narrative Resulting Agency Comment Spec In Lab Dion Barlow MD CHEMISTRY ORDERABLES Performing Organization Address [facility] de Phone Number DURGA ORDOÑEZEruditor GroupUNC [facility]ALTH [facility] * High Sensitivity CRP (11/06/2015 10:24 AM EST) C-Reactive Protein High Sensitivity 7.9 mg/L [facility] [employer] [facility] Comment: Interpretations: 1) For accurate [...] Barlow MD CHEMISTRY ORDERABLES Performing Organization Address [facility] de Phone Number DURGA FREDERICK documented in this encounter Visit Diagnoses Diagnosis Ulcerative colitis, without complications Diarrhea Pain in right hip Pain in joint, pelvic region and thigh Bilateral low back pain, with sciatica presence unspecified Abdominal pain, unspecified abdominal location Chronic ulcerative enterocolitis, unspecified complication documented in this encounter Care Teams Stock Preparation Operator Relationship Specialty Start Date End Date Maximilian Fall MD [address] [place] [address] PCP - General 10/01/11 02/13/21 documented as of this encounter
--- OUTSIDE RECORDS SUMMARY | 2024-07-20 13:38 | XMS_ITS | Encounter Summary ---
Author Organization [facility] Address [facility] [place] [id number] Care Team Providers Care Steel Rod Buster Name Role Phone Maximilian Fall MD Primary Care Provider [phone] Reason for Referral * Diagnostic Test (Routine) - Closed Specialty Diagnoses / Procedures Referred By Contac t Referred To Contact Radiology Diagnoses Postoperative wound abscess, initial encounter Procedures CT Retroperitoneal Abscess Drain Minnie Johnson MD [facility] [place] [address] [facility] [place] [address] Referral ID Status Reason Start Date Expiration Date V isits Requested Visits Authorized [id number] Closed Specialty Service Requested 03/22/2016 03/22/2017 1 1 Encounter Details Date Type Department Care Team (Late st Contact Info) Description 03/22/2016 [place] [address] Minnie Johnson MD [facility] [place] [address] Postoperative wound abscess, initial encounter [...] : 1950 Referring Physician: Dr. Guerin from [facility] Indication: RLQ post-operative abscess Planned Procedure: CT guided abscess drain placement Chief Complaint/HPI: 65 y.o. male with PMHx significant for asthma, diabetes, and ulcerative colitis who is status post laparoscopic appendectomy on 03/13/2016 who noted RLQ pain several days post-op.He presented to [facility] ED and underwent a CT scan with findings consistent with RLQ abscess. We have been consulted for CT guided abscess drain placement. The patient has been admitted to [facility] and will be transferred back to [facility] following the procedure. OSH Labs: WBC 10.2, [...] Hurtado. Minnie Johnson MD Radiology, PGY-2 Pager [phone] documented in this encounter Plan of Treatment Upcoming Encounters Date Type Department Care Team (Late st Contact Info) Description 08/15/2024 9:00 AM EDT Office [place] [address] Dion Barlow MD [facility] [place] [address] 09/01/2024 9:40 AM EDT Office Visit Cardiology at [address] [place] [address] Franky Shaver MD [facility] [place] [address] 09/01/2024 11:20 AM EDT Office Visit Dermatology at [facility] [address] [place] [phone] Gómez Mercer MD [facility] DR EDD[address] [place] [address] 09/21/2024 2:45 PM EDT Office Visit Pain and Spine Center at [facility] [place] [phone] Trung Hoyos MD [facility] [place] [address] documented as of this encounter Results * CT Retroperitoneal Abscess Drain (03/22/2016 12:34 PM EDT) Anatomical Region Laterality Modality Abdomen Computed Tomogra phy Narrative 03/22/2016 1:02 PM EDT VIR PROCEDURE NOTE Procedure: CT-guided RLQ?? drainage catheter placement (ACC # [id number]) Indication : 65 y.o. male with PMHx significant for asthma, diabetes, and ulcerative colitis who is status post laparoscopic appendectomy on 03/13/2016 who noted RLQ pain several days post-op. He presented to [facility] ED and underwent a CT scan with findings consistent with RLQ abscess. We have been consulted for CT guided abscess drain placement. The patient has been admitted to [facility] and will be transferred back to [facility] following the procedure. Technique: After discussing risks [...] encounter documented in this encounter Care Teams Steel Rod Buster Relationship Specialty Start Date End Date Maximilian Fall MD [address] [place] [address] PCP - General 10/01/11 02/13/21 documented as of this encounter
--- OUTSIDE RECORDS SUMMARY | 2024-07-20 13:38 | XMS_ITS | Encounter Summary ---
Author Organization [facility] [place] [address] Care Team Providers Care Carton Repairer Name Role Phone Maximilian Fall MD Primary Care Provider [phone] Encounter Details Date Type Department Care Team (Late Contact Info) Description 11/06/2015 Orders [place] [phone] Marcelle Weinberg, JAZMINE [facility] [place] [address] Ulcerative colitis without complications Social History Tobacco [...] 9:00 AM EDT Office [place] [phone] Dion Barlow MD [facility] [place] [address] 09/01/2024 9:40 AM EDT Office Visit Cardiology at [address] [place] [phone] Franky Shaver MD [facility] [place] [address] 09/01/2024 11:20 AM EDT Office Visit Dermatology at [facility] [address] [place] [address] Gómez Mercer MD [facility] DR EDD[place] [address] 09/21/2024 2:45 PM EDT Office Visit Pain and Spine Center at [facility] [place] [phone] Trung Hoyos MD [facility] [place] [address] documented as of this encounter Visit Diagnoses Diagnosis Ulcerative colitis without complications Ulcerative colitis, unspecified documented in this encounter Care Teams Carton Repairer Relationship Specialty Start Date End Date Maximilian Fall MD [address] [facility] [place] [address] PCP - General 10/01/11 02/13/21 documented as of this encounter
--- OUTSIDE RECORDS SUMMARY | 2024-07-20 13:38 | XMS_ITS | Encounter Summary ---
Author Organization [facility] [place] [address] Care Team Providers Care Instrument Sterilizer Name Role Phone Maximilian Fall MD Primary Care Provider [phone] Reason for Visit * Reason Onset Date Comments Medication Refill 03/12/2018 Encounter Details Date Type Department Care Team (Late st Contact Info) Description 03/12/2018 Ref[place] [address] Bethany Trivedi, RN Pain in right hip; [...] 9:00 AM EDT Office [place] [phone] Dion Barlow MD [facility] [place] [address] 09/01/2024 9:40 AM EDT Office Visit Cardiology at [address] [place] [phone] Franky Shaver MD [facility] [place] [address] 09/01/2024 11:20 AM EDT Office Visit Dermatology at [facility] [address] [place] [phone] Gómez Mercer MD [facility] DR [place] [address] 09/21/2024 2:45 PM EDT Office Visit [place] [phone] Trung Hoyos MD [facility] [place] [address] documented as of this encounter Visit Diagnoses Diagnosis Pain in right hip Pain in joint, pelvic region and thigh Chronic ulcerative enterocolitis, unspecified complication documented in this encounter Care Teams Instrument Sterilizer Relationship Specialty Start Date End Date Maximilian Fall MD [address] [place] [address] PCP - General 10/01/11 02/13/21 documented as of this encounter
--- OUTSIDE RECORDS SUMMARY | 2024-07-20 13:38 | XMS_ITS | Encounter Summary ---
Author Organization [facility] Address [facility] [place] [address] Care Team Providers Care Whizzer Operator Name Role Phone Maximilian Fall MD Primary Care Provider [phone] Reason for Visit * Reason Comments Follow-up Encounter Details Date Type Department Care Team (Late st Contact Info) Description 12/04/2015 3:30 PM EST Office [place] [address] Marcelle Weinberg, JAZMINE [facility] [place] [address] Other ulcerative colitis Social History Tobacco Use [...] Overview Note: ?? Colonoscopy 04/08/10 (Dr. Gomes [facility]) - inflammation only within the rectum and sigmoid; extent of the exam was to the hepatic flexure; biopsies proximal to the sigmoid nl ?? Repeat exam 11/27/11 ([facility]): mildly [...] to move his bowels. Still formed stool. [place] better after defecation. Eating well. Weight stable. [...] DIAGNOSTIC performed by Dion OSULLIVAN at [facility] ENDOSCOPY ??? Pro sigmoidoscopy, diagnostic 03/16/2012 FLEXIBLE SIGMOIDOSCOPY performed by YUDI MALLOY at [facility] ENDOSCOPY ??? Upper gi endoscopy, exam 10/01/2012 UPPER GI ENDOSCOPY performed by Dion OSULLIVAN at [facility] ??? Pro colonoscopy, diagnostic 07/13/2014 COLONOSCOPY, DIAGNOSTIC performed by Dion Osullivan MD at [facility] History Social History ??? Marital Status: [...] UA Latest Range: Clear Hazy (A) Spec Pep UA Latest Range: 1.002-1.030 1.020 pH UA [...] 9:00 AM EDT Office [place] [address] Dion Osullivan MD [facility] [place] [address] 09/01/2024 9:40 AM EDT Office Visit Cardiology at [address] [address] Franky Shaver MD [facility] [place] [address] 09/01/2024 11:20 AM EDT Office Visit Dermatology at [address] [address] Gómez Mercer MD [facility] [place] [address] 09/21/2024 2:45 PM EDT Office Visit [place] [address] Trung Hoyos MD [facility] [place] [address] documented as of this encounter Visit Diagnoses Diagnosis Other ulcerative colitis documented in this encounter Care Teams Whizzer Operator Relationship Specialty Start Date End Date Maximilian Fall MD [address] [place] [address] PCP - General 10/01/11 02/13/21 documented as of this encounter
--- OUTSIDE RECORDS SUMMARY | 2024-07-20 13:38 | XMS_ITS | Encounter Summary ---
Author Organization [facility] Address [facility] [place] [address] Care Team Providers Care Photographic Machine Operator Name Role Phone Maximilian Fall MD Primary Care Provider [phone] Reason for Visit * Reason Comments Follow-up Encounter Details Date Type Department Care Team (Late st Contact Info) Description 05/16/2016 10:30 AM EDT Office Visit [place] [address] Dion Barlow MD [facility] [place] [address] Other ulcerative colitis with complication Social History [...] Overview Note: ?? Colonoscopy 04/08/10 (Dr. Gomes [facility]) - inflammation only within the rectum and [...] months. 10 min of this 15 min [id number] visit was spent counseling the patient in the issues outlined above. Davina Barlow MD Manager Special Eventsstructural engineering project manager Section of Gastroenterology [place] [address] documented in this encounter Plan of Treatment Upcoming Encounters Date Type Department Care Team (Late st Contact Info) Description 08/15/2024 9:00 AM EDT Office Visit [place] [phone] Dion Barlow MD [facility] [place] [address] 09/01/2024 9:40 AM EDT Office Visit Cardiology at [address] [place] [address] Franky Shaver MD [facility] [address] 09/01/2024 11:20 AM EDT Office Visit Dermatology at [facility] [address] [place] [address] Gómez Mercer MD [facility] [place] [address] 09/21/2024 2:45 PM EDT Office Visit [facility] [place] [address] Trung Hoyos MD [facility] [place] [address] documented as of this encounter Visit Diagnoses Diagnosis Other ulcerative colitis with complication documented in this encounter Care Teams Photographic Machine Operator Relationship Specialty Start Date End Date Maximilian Fall MD [address] [facility] 1 [place] [address] PCP - General 10/01/11 02/13/21 documented as of this encounter
--- OUTSIDE RECORDS SUMMARY | 2024-07-20 13:38 | XMS_ITS | Encounter Summary ---
Author Organization [facility] Address [facility] [place] [address] Care Team Providers Care Buy Boat Operator Name Role Phone Maximilian Fall MD Primary Care Provider [phone] Reason for Visit * Reason Comments Follow-up Encounter Details Date Type Department Care Team (Late st Contact Info) Description 05/11/2017 4:00 PM EDT Office [place] [address] Marcelle Weinberg, JAZMINE [facility] [place] [address] Ulcerative colitis without complications, unspecified location Social [...] Overview Note: ? Colonoscopy 04/08/10 (Dr. Gomes [facility]) - inflammation only within the rectum and sigmoid; extent of the exam was to the hepatic flexure; biopsies proximal to the sigmoid nl ?? Repeat exam 11/27/11 ([facility] 3.66) performed by Dion Osullivan MD at [facility] ENDOSCOPY ??? PRO COLONOSCOPY, DIAGNOSTIC 11/27/2011 COLONOSCOPY, DIAGNOSTIC performed by Dion OSULLIVAN at [facility]COPY ??? PRO COLONOSCOPY, DIAGNOSTIC 07/13/2014 COLONOSCOPY, DIAGNOSTIC performed by Dion Osullivan MD at [facility] ENDOSCOPY ??? PRO SIGMOIDOSCOPY, DIAGNOSTIC 03/16/2012 FLEXIBLE SIGMOIDOSCOPY performed by YUDI MALLOY at [facility]COPY ??? UPPER GI ENDOSCOPY, EXAM 10/01/2012 UPPER GI ENDOSCOPY performed by Dion OSULLIVAN at [facility] Social History Social History [...] 1140 ?? Resulting lab: [facility] ?? Value: [facility] Endoscopy Procedure Date: 02/12/2017 11:40 AM ? Patient Name: Brian Rodriguez ? Date of : 1950 ? Age: 66 ? Order #: [id number] ? Instrument Name: [id number] ? Procedure: ? Colonoscopy Indications: ? High risk colon cancer surveillance: ?Ulcerative colitis Patient Profile: ? This is a 66 year old male. This ?patient has left-sided ulcerative ?colitis on sulfasalazine and ?Cortifoam and is experiencing mild ?symptoms. Providers: ? L. Karthik Osullivan MD, Vandana Love ?RONY Mcekon, Sonal Segura, ?Access Rn Referring MD: ?Maximilian Fall MD Medicines: ? [...] ?bowel preparation was evaluated using ?the BBPS ([place] Bowel Preparation ?Scale) with scores of: Right [...] 9:00 AM EDT Office [place] [address] Dion Osullivan MD [facility] [place] [address] 09/01/2024 9:40 AM EDT Office Visit Cardiology at [address] [phone] Franky Shaver MD [facility] [place] [place] [address] 09/01/2024 11:20 AM EDT Office Visit Dermatology at [facility] [address] [place] [address] Gómez Mercer MD [facility] DR [place] [address] 09/21/2024 2:45 PM EDT Office Visit Pain and Spine Center at [facility] [place] [address] Trung [place]oy[place] MD [facility] [place] [address] documented as of this encounter Procedures Procedure [...] 4:21 PM EDT) Neutrophil % 63.1 % [facility] Neutrophil Absolute 4.76 1.70 - 6.10 x10(3)/[facility] LAB[facility] Lymph % 25.0 % [facility] Lymphocytes Abs 1.9 0.9 - 3.2 x10(3)/[facility] Monocyte % 7.6 % [facility] Monocyte Abs 0.6 0.3 - 0.9 x10(3)/[facility] Eos % 3.2 % [facility] Eosinophils Abs 0.2 0.0 - 0.4 x10(3)/[facility] Basophil % 0.7 % [facility] Baso Absolute 0.0 0.0 - 0.1 x10(3)/[facility]ORY Immature Gran % 0.40 % [facility] Comment: Immature granulocytes(IG's)percentage and absolute count will include metamyelocytes, myelocytes, and promyelocytes. Blood smears from CBCs yielding IG's will be scanned manually for concordance. If this scan disagrees with the automated IG or if promyelocytes are noted, a manual differential will be performed. Immature Gran Absolute 0.03 0.00 - 0.04 x10(3)/[facility] Blood specimen (specimen) 05/11/2017 4:21 PM EDT 05/11/2017 4:29 PM EDT Narrative Resulting Agency Comment Spec In Lab Marcelle Wienberg APRN HEMATOLOGY ORDERA BLES [facility] [place] [address] * (ABNORMAL) Hemogram (05/11/2017 4:21 PM EDT) White Blood Cell 7.5 4.0 - 9.5 x10(3)/mc L [facility] Red Blood Cell 3.98(L) 4.58 - 5.54 x10(6)/ L [facility] Hemoglobin 13.1(L) 13.7 - 16.5 gm/dL [facility] Hematocrit 39.4(L) 40.5 - 48.5 % [facility] Mean Cell Volume 99.0(H) 82.9 - 93.1 fL [facility] Mean Cell Hemoglobin 32.9(H) 27.5 - 32.1 pg [facility] Mean Cell Hemoglobin Concentration 33.2 32.0 - 35.7 gm/dL [facility] Platelet 220 145 - 357 x10(3)/mc L [facility] RDW Standard Deviation 44.6 36.0 - 45.0 fL [facility] RDW coefficient of variation 12.3 11.4 - 13.8 % [facility] Mean Platelet Volume 11.1 7.6 - 12.9 fL [facility] NRBC% auto 0.0 % [facility] NRBC Absolute 0.000 0.000 - 0.000 x10(3)/mc L [facility] Blood specimen (specimen) 05/11/2017 4:21 PM EDT 05/11/2017 4:29 PM EDT Narrative Resulting Agency Comment Spec In Lab Marcelle Weinberg SLIP COVER SEAMSTRESS HEMATOLOGY ORDERA BLES [facility] [place] [address] * CRP, acute inflammation (05/11/2017 4:21 PM EDT) [facility] C-Reactive Protein 2.3 <=4.9 mg/L [facility] Blood specimen (specimen) 05/11/2017 4:21 PM EDT 05/11/2017 4:29 PM EDT Narrative Resulting Agency Comment Spec In Lab Marcelle Weinberg SLIP COVER SEAMSTRESS CHEMISTRY ORDERAB LES [facility] [place] [address] * (ABNORMAL) Sedimentation rate (05/11/2017 4:21 PM EDT) Sedimentation Rate Automated 19(H) 0 - 15 mm/hr [facility] Blood specimen (specimen) 05/11/2017 4:21 PM EDT 05/11/2017 4:29 PM EDT Narrative Resulting Agency Comment Spec In Lab Marcelle Weinberg SLIP COVER SEAMSTRESS HEMATOLOGY ORDERA BLES [facility] [place] [address] * (ABNORMAL) CMP w/fasting Glucose (05/11/2017 4:21 PM EDT) Glucose Fasting 91 65 - 99 mg/dL [facility] Comment: ?Fasting* Glucose Interpretive Criteria [...] of Diabetes Mellitus, Position Statement from the [place] [employer]. ??Diabetes Care, Volume 33, Supplement 1, Nov 2009 Blood Urea Nitrogen 20 10 - 20 mg/dL [facility] Creatinine 1.17 0.80 - 1.50 mg/dL [facility] Comment: Please note that the pediatric reference intervals supplied above were not validated at [facility]. Results from pediatric patients should be interpreted in conjunction to the patient's age, height and muscle mass. Sodium 143 135 - 145 mmol/L [facility] Potassium 4.9 3.5 - 5.0 mmol/L [facility] Comment: Please note: ??Patients with WBC >100,000 may have falsely elevated Potassium levels. ??For accurate Potassium quantification in these patients send serum separator tube (gold top) for subsequent determinations. ??Contact the Clinical Chemistry Laboratory if there are any questions. Chloride 103 98 - 107 mmol/L [facility] Carbon Dioxide 26 22 - 31 mmol/L [facility] Anion Gap 14 5 - 15 mmol/L [facility] Calcium 9.9 8.5 - 10.5 mg/dL [facility] Protein, Total 8.2(H) 6.1 - 8.0 gm/dL [facility] Albumin 4.3 3.2 - 5.2 gm/dL [facility] Aspartate Aminotransferase 13 0 - 39 unit/L [facility] Alanine Aminotransferase 21 0 - 55 unit/L [facility] Alkaline Phosphatase 58 40 - 120 unit/L [facility] Bilirubin, Total 0.3 0.2 - 1.3 mg/dL [facility] Bilirubin, Direct 0.1 0.0 - 0.3 mg/dL [facility] Est Glomerular Filtration Rate >60 >=60 [facility] Comment: This estimated GFR (eGFR) [...] the following links into your internet browser. [email or web address] Blood specimen (specimen) 05/11/2017 4:21 PM EDT 05/11/2017 4:29 PM EDT Narrative Resulting Agency Comment Spec In Lab Marcelle Weinberg SLIP COVER SEAMSTRESS CHEMISTRY ORDERAB LES [facility] [place] [address] documented in this encounter Visit Diagnoses Diagnosis Ulcerative colitis without complications, unspecified location documented in this encounter Care Teams Buy Boat Operator Relationship Specialty Start Date End Date Maximilian Fall MD [address] [place] [address] PCP - General 10/01/11 02/13/21 documented as of this encounter
--- OUTSIDE RECORDS SUMMARY | 2024-07-20 13:38 | XMS_ITS | Encounter Summary ---
Author Organization [facility] Address [facility] [place] [address] Care Team Providers Care Sail Repairer Name Role Phone Maximilian Fall MD Primary Care Provider [phone] Encounter Details Date Type Department Care Team (Latest Contact Info) Description 11/06/2015 11:16 AM EST - 11/06/2015 11:17 AM [facility] Hospital Encounter XRay at [address] [place] [address] Dion Barlow MD [facility] [address] Pain in right hip; Bilateral low back [...] 9:00 AM EDT Office [place] [address] Dion Barlow MD [facility] [place] [address] 09/01/2024 9:40 AM EDT Office Visit Cardiology at [address] [phone] Franky Shaver MD [facility] [place] [address] 09/01/2024 11:20 AM EDT Office Visit Dermatology at [facility] [address] [place] [address] Gómez Mercer MD [facility] DR EDDIE [place] [address] 09/21/2024 2:45 PM EDT Office Visit Pain and Spine Center at [facility] [place] [address] Trung Hoyos MD [facility] [place] [address] documented as of this encounter Procedures Procedure [...] complication documented in this encounter Care Teams Sail Repairer Relationship Specialty Start Date End Date Maximilian Fall MD [address] [place] [address] PCP - General 10/01/11 02/13/21 documented as of this encounter
--- OUTSIDE RECORDS SUMMARY | 2024-07-20 13:38 | XMS_ITS | Encounter Summary ---
Author Organization [facility] Address [place] [id number] Care Team Providers Care Sand Tester Name Role Phone Maximilian Fall MD Primary Care Provider [phone] Reason for Referral * Diagnostic Test (Routine) - Closed Specialty Diagnoses / Procedures Referred By Contac t Referred To Contact Radiology Diagnoses Postoperative wound abscess, initial encounter Procedures CT Retroperitoneal Abscess Drain Minnie Johnson MD [facility] [place] [address] [facility] [place] [address] Referral ID Status Reason Start Date Expiration Date V isits Requested Visits Authorized [id number] Closed Specialty Service Requested 03/22/2016 03/22/2017 1 1 Reason for Visit * Diagnostic Test (Routine) - Closed Specialty Diagnoses / Procedures Referred By Contac t Referred To Contact Radiology Diagnoses Postoperative wound abscess, initial encounter Procedures CT Retroperitoneal Abscess Drain Minnie Johnson MD [facility] [place] [address] [facility] [place] [address] Referral ID Status Reason Start Date Expiration Date V isits Requested Visits Authorized [id number] Closed Specialty Service Requested 03/22/2016 03/22/2017 1 1 Encounter Details Date Type Department Care Team (Latest Contact Info) Description 03/22/2016 10:40 AM EDT - 03/22/2016 11:59 PM EDT Hospital [place] [address] Shireen Hurtado MD [facility] [place] [address] Postoperative wound abscess, initial encounter Discharge Disposition: [...] is during regular office hours, please call [phone]. If it is after regular office hours, or on weekends or holidays, please call [phone] and ask to speak to the Community Health Worker numerical control router operator for Interventional Radiology. You have received medication [...] pain several days post-op. He presented to [facility] ED and underwent a CT scan with findings consistent with RLQ abscess. We have been consulted for CT guided abscess drain placement. The patient has been admitted to [facility] and will be transferred back to [facility] following the procedure. Addendum: The patient's history [...] visible) Minnie Johnson MD Radiology, PGY-2 Pager [phone] * Danyell Doyle RN - 03/22/2016 10:29 AM EDT [facility] DATABASE Name: NAYA RODRIGUEZ Date of : 1950 AGE 65 y.o. Address: [address] [place] [phone] (home) Mobile: Telephone Information: Referring Provider: Minnie [...] Dion OSULLIVAN at [facility] ENDOSCOPY ??? Pro sigmoidoscopy, diagnostic 03/16/2012 FLEXIBLE SIGMOIDOSCOPY performed by YUDI MALLOY at [facility] END[facility]COPY ??? Upper gi endoscopy, exam 10/01/2012 UPPER GI ENDOSCOPY performed by Dion OSULLIVAN at [facility]COPY ??? Pro colonoscopy, diagnostic 07/13/2014 COLONOSCOPY, DIAGNOSTIC performed by Dion Osullivan MD at [facility] Date/Procedure Med's given/comments No previous [...] CT-guided RLQ drainage catheter placement (acc # [id number]) Indication : 65 y.o. male with PMHx significant for asthma, diabetes, and ulcerative colitis who isstatus post laparoscopic appendectomy on 03/13/2016 who noted RLQ pain several days post-op. He presented to [facility] ED and underwent a CT scan with findings consistent with RLQ abscess. We have been consulted for CT guided abscess drain placement. The patient has beenadmitted to [facility] and will be transferred back to [facility] following the procedure. . Technique: After discussing [...] 9:00 AM EDT Office [place] [address] Dion Osullivan MD [facility] [place] [address] 09/01/2024 9:40 AM EDT Office Visit Cardiology at [address] [place] [address] Franky Shaver MD [facility] [place] [address] 09/01/2024 11:20 AM EDT Office Visit Dermatology at [facility] [address] [place] [phone] Gómze Mercer MD [facility] DR [place] [address] 09/21/2024 2:45 PM EDT Office Visit Pain and Spine Center at [facility] [place] [address] Trung Hoyos MD [facility] [place] [address] documented as of this encounter Procedures Procedure [...] CT-guided RLQ?? drainage catheter placement (ACC # [id number]) Indication : 65 y.o. male with PMHx significant for asthma, diabetes, and ulcerative colitis who is status post laparoscopic appendectomy on 03/13/2016 who noted RLQ pain several days post-op. He presented to [facility] ED and underwent a CT scan with findings consistent with RLQ abscess. We have been consulted for CT guided abscess drain placement. The patient has been admitted to [facility] and will be transferred back to [facility] following the procedure. Technique: After discussing risks [...] EDT) Anaerobic Culture No anaerobic organisms isolated [facility] Specimen from abscess (specimen) [place] / Unknown 03/22/2016 10:54 AM EDT 03/22/2016 12:52 PM EDT Comment:RLQ PAIN SEVERAL DAY S POST-OP. HE PRESENTED TO [facility] ED AND UNDERWENT A CT SCAN WITH FINDINGS CONSISTENT WITH RLQ ABSCESS. S/P APPY. Narrative Resulting Agency Comment Spec In Lab Shireen Hurtado MD MICROBIOLOGY - GENER AL ORDERABLES Performing Organization Address City/[facility]/ZIP Co de Phone Number [facility] [place] [address] * (ABNORMAL) Wound Aspirate/Abscess Culture (03/22/2016 10:54 AM EDT) Abscess/Wound Aspirate Culture Many Escherichia coli(A) [facility] Gram Stain Many White Blood Cells seen Many Gram Negative Rods seen (A) [facility] Organism Escherichia coli(A) [facility] Organism Gram Negative Rods(A) [facility] Specimen from abscess (specimen) [place] / Unknown 03/22/2016 10:54 AM EDT 03/22/2016 12:52 PM EDT Comment:RLQ PAIN SEVERAL DAY S POST-OP. HE PRESENTED TO [facility] ED AND UNDERWENT A CT SCAN [...] ORDERABLES Performing Organization Address [facility]/ZIP Co de Phone Number [facility] [place] [address] documented in this encounter Visit Diagnoses Diagnosis [...] mL/hr documented in this encounter Care Teams Sand Tester Relationship Specialty Start Date End Date Maximilian Fall MD [address] [facility] [place] [address] PCP - General 10/01/11 02/13/21 documented as of this encounter
--- OUTSIDE RECORDS SUMMARY | 2024-07-20 13:38 | XMS_ITS | Encounter Summary ---
[place] [address] Care Team Providers Care Account Manager Name Role Phone Maximilian Fall MD Primary Care Provider Encounter Details Date Type Department Care Team (Late st Contact Info) Description 03/21/2016 - 03/21/2016 11:59 PM EDT Hospital Encounter [place] [address] [address] Thomas Temporary Pain Discharge Disposition: Home [...] 9:00 AM EDT Office [place] [phone] Dion Barlow MD [facility] [address] 09/01/2024 9:40 AM EDT Office Visit Cardiology at [address] [phone] Franky Shaver MD [facility] [place] [address] 09/01/2024 11:20 AM EDT Office Visit Dermatology at [address] [address] Gómez Mercer MD [facility] DR [place] [address] 09/21/2024 2:45 PM EDT Office Visit [place] [phone] Trung Hoyos MD [facility] [place] [address] documented as of this encounter Procedures Procedure Name Priority Date/Time Associated Diagnosis Comments FILM LIBRARY STORAGE ONLY CT ABDOMEN AND PELVIS Routine 03/21/2016 12:00 AM EDT Pain documented in this encounter Results * Film Library- Storage Only CT Abdomen & Pelvis (03/21/2016 12:00 AM EDT) Narrative [facility] - 03/21/2016 7:24 PM EDT This exam is for storage only and is auto-finalizing. Dr Leiva [facility] FILM LIBRARY ORD ERABLES [place], [place] documented in this encounter Visit Diagnoses Diagnosis Pain Generalized pain documented in this encounter Care Teams Account Manager Relationship Specialty Start Date End Date Maximilian Fall MD [address] [place] [address] PCP - General 10/01/11 02/13/21 documented as of this encounter
--- OUTSIDE RECORDS SUMMARY | 2024-07-20 13:38 | XMS_ITS | Encounter Summary ---
Author Organization [facility] Address [facility] [place] [address] Care Team Providers Care Field Administrator Name Role Phone Maximilian Fall MD Primary Care Provider [phone] Encounter Details Date Type Department Care Team (Latest Contact Info) Description 11/06/2015 11:18 AM EST - 11/06/2015 11:59 PM [facility] Hospital Encounter XRay at [address] [place] [address] Dion Barlow MD [facility] [place] [address] Pain in right hip; Bilateral low back [...] 9:00 AM EDT Office [place] [address] Dion Barlow MD [facility] [place] [address] 09/01/2024 9:40 AM EDT Office Visit Cardiology at [address] [phone] Franky Shaver MD [facility] [place] [address] 09/01/2024 11:20 AM EDT Office Visit Dermatology at [facility] [address] [place] [address] Gómez Mercer MD [facility] DR EDDIE [place] [address] 09/21/2024 2:45 PM EDT Office Visit Pain and Spine Center at [facility] [place] [address] Trung Hoyos MD [facility] [place] [address] documented as of this encounter Procedures Procedure [...] complication documented in this encounter Care Teams Field Administrator Relationship Specialty Start Date End Date Maximilian Fall MD [address] [place] [address] PCP - General 10/01/11 02/13/21 documented as of this encounter
--- OUTSIDE RECORDS SUMMARY | 2024-07-20 13:38 | XMS_ITS | Encounter Summary ---
Author Organization [facility] Address [facility] [place] [address] Care Team Providers Care Ssis Architect Name Role Phone Maximilian Fall MD Primary Care Provider [phone] Reason for Visit * Reason Comments Follow-up Encounter Details Date Type Department Care Team (Late st Contact Info) Description 10/29/2017 10:30 AM EST Office [place] [address] Dion Barlow MD [facility] [place] [address] Left sided ulcerative colitis with complication Social [...] Note: ? Colonoscopy 04/08/10 (Dr. Gomes [facility]) - inflammation only within the rectum and sigmoid; extent of the exam was to the hepatic flexure; biopsies proximal to the sigmoid nl ?? Repeat exam 11/27/11 ([facility] mildly active colitis in the sigmoid colon [...] months. 15 min of this 25 min qqcy-qz-wibk visit was spent counseling the patient in the issues outlined above. Davina Barlow MD Coat Finishercnc machine programmer Section of Gastroenter[place] [address] CC: Maximilian Fall MD [address] [place] [phone] documented in this encounter Plan of Treatment Upcoming Encounters Date Type Department Care Team (Late st Contact Info) Description 08/15/2024 9:00 AM EDT Office [place] [address] Dion Barlow MD [facility] [place] [place] [address] 09/01/2024 9:40 AM EDT Office Visit Cardiology at [address] [place] [address] Franky Shaver MD [facility] [place] [address] 09/01/2024 11:20 AM EDT Office Visit Dermatology at [facility] [address] [place] [address] Gómez Mercer MD [facility] DR [place] [address] 09/21/2024 2:45 PM EDT Office Visit Pain and Spine Center at [facility] [place] [address] Trung Hoyos MD [facility] [place] [address] documented as of this encounter Visit Diagnoses Diagnosis Left sided ulcerative colitis with complication documented in this encounter Care Teams Ssis Architect Relationship Specialty Start Date End Date Maximilian Fall MD [address] [place] [address] PCP - General 10/01/11 02/13/21 documented as of this encounter
--- OUTSIDE RECORDS SUMMARY | 2024-07-20 13:38 | XMS_ITS | Encounter Summary ---
[place] [address] Care Team Providers Care Political Reporter Name Role Phone Maximilian Fall MD Primary Care Provider [phone] Encounter Details Date Type Department Care Team (Late st Contact Info) Description 03/13/2016 - 03/13/2016 11:59 PM EDT Hospital Encounter [place] [address] [address] Thomas Temporary Pain Discharge Disposition: Home [...] AM EDT Office Visit [place] [phone] Dion Barlow MD [facility] [place] [address] 09/01/2024 9:40 AM EDT Office Visit Cardiology at [address] [phone] Franky Shaver MD [facility] [place] [address] 09/01/2024 11:20 AM EDT Office Visit Dermatology at [address] [address] Gómez Mercer MD [facility] DR [place] [address] 09/21/2024 2:45 PM EDT Office Visit Pain [place] [phone] Trung Hoyos MD [facility] [address] documented as of this encounter Procedures Procedure Name Priority Date/Time Associated Diagnosis Comments FILM LIBRARY STORAGE ONLY CT ABDOMEN AND PELVIS Routine 03/13/2016 12:00 AM EDT Pain documented in this encounter Results * Film Library- Storage Only CT Abdomen & Pelvis (03/13/2016 12:00 AM EDT) Narrative [facility] - 03/22/2016 8:20 AM EDT This exam is for storage only and is auto-finalizing. Dr Leiva [facility] FILM LIBRARY ORD ERABLES [place], [place] documented in this encounter Visit Diagnoses Diagnosis Pain Generalized pain documented in this encounter Care Teams Political Reporter Relationship Specialty Start Date End Date Maximilian Fall MD [address] [place] [address] PCP - General 10/01/11 02/13/21 documented as of this encounter
--- OUTSIDE RECORDS SUMMARY | 2024-07-20 13:39 | XMS_ITS | Encounter Summary ---
Author Organization [facility] Address [facility] [place] [address] Care Team Providers Care Dispensary Clerk Name Role Phone Maximilian Fall MD Primary Care Provider [phone] Encounter Details Date Type Department Care Team (Latest Contact Info) Description 03/16/2012 12:32 PM EDT - 03/16/2012 3:00 PM EDT Hospital Encounter [place] [address] Enrico Tellez MD [facility] [place] [address] Discharge Disposition: Home Social History Tobacco Use [...] please contact your M. D. Please call [phone] BEFORE 5PM with any questions or concerns, AFTER 5PM call [phone] andask to speak to the Clinical Resource Nurse section leader. * Patient Instructions* Enrico Tellez MD - 03/16/2012 1:27 PM EDT Please see Recommendations in the Provation procedure report which is documented in the procedural note in E-DH. * Attachments The following attachments cannot be sent through Care Everywhere. * SIGMOIDOSCOPY: WHAT TO EXPECT AT HOME (CYMRAES) documented in this encounter Medications at Time [...] 9:00 AM EDT Office Visit [place] [address] Dion Barlow MD [facility] [place] [address] 09/01/2024 9:40 AM EDT Office Visit Cardiology at [address] [place] [address] Franky Shaver MD [facility] [place] [address] 09/01/2024 11:20 AM EDT Office Visit Dermatology at [facility] [address] [place] [address] Gómez Mercer MD [facility] [place] [address] 09/21/2024 2:45 PM EDT Office Visit Pain [place] [address] Trung Hoyos MD [facility] [place] [address] documented as of this encounter Procedures Procedure Name Priority Date/Time Associated Diagnosis Comments SURGICAL PATHOLOGY REPORT Routine 03/16/2012 4:52 PM EDT SPECIMEN TO PATHOLOGY Routine 03/16/2012 2:09 PM EDT FLEXIBLE SIGMOIDOSCOPY (WRVU 0.84) 03/16/2012 1:27 PM EDT study patient POCT GLUCOSE Routine 03/16/2012 1:16 PM EDT documented in this encounter Results * SURGICAL PATHOLOGY REPORT (03/16/2012 4:52 PM EDT) Surgical Pathology Report ? [facility] ? Provider: ?? ENRICO TELLEZ ?Pt. Name: ?? SHANTNAYA ? Acc #: ?[id number] ?Pt. ? Col Date: ?? 03/16/2012 ? [...] Organization Address [facility] de Phone Number DURGA FREDERICK * Specimen to Pathology (surgical or derm) (03/16/2012 2:09 PM EDT) AP Specimen 03/16/2012 2:09 PM EDT 03/16/2012 2:09 PM EDT Narrative DURGA TIAGOENNIUM - 03/16/2012 2:09 PM EDT Specimen requisition ordered. ??Separate Pathology report to follow Enrico Tellez MD PATHOLOGY/CYTOLOGY O CEE Performing Organization Address [facility] de Phone Number DURGA FREDERICK * POCT GLUCOSE LAB USE ONLY (03/16/2012 1:16 PM EDT) Glucose, POC 116 60 - 199 mg/dL JO-ANNGIOVANNI ORDOÑEZENNIUM Comment: Supplemental ranges: <110 mg/dL before meals <200 mg/dL all other times of the day Blood specimen (specimen) 03/16/2012 1:16 PM EDT 03/16/2012 1:16 PM EDT Enrico Tellez MD POINT OF CARE TEST O CEE Performing Organization Address [facility] de Phone Number DURGA FREDERICK documented [...] RN) documented in this encounter Care Teams Dispensary Clerk Relationship Specialty Start Date End Date Maximilian Fall MD [address] [place] [address] PCP - General 10/01/11 02/13/21 documented as of this encounter
--- OUTSIDE RECORDS SUMMARY | 2024-07-20 13:39 | XMS_ITS | Encounter Summary ---
Author Organization [facility] Address [facility] [place] [address] Care Team Providers Care Manager Advanced Name Role Phone Maximilian Fall MD Primary Care Provider [phone] Encounter Details Date Type Department Care Team (Latest Contact Info) Description 10/01/2012 2:23 PM EST - 10/01/2012 6:31 PM EST Hospital Encounter [place] [address] Dion Osullivan MD [facility] [place] [address] Discharge Disposition: Home Social History Tobacco Use [...] GI ENDOSCOPY: WHAT TO EXPECT AT HOME (SOMALI) documented in this encounter Medications at Time [...] Osullivan MD - 10/01/2012 5:07 PM EST [facility] Operative Note Patient Name: Naya Rodriguez : [id number] MR#: [id number] Case Date: 10/01/2012 Surgeon: Surgeon(s) and Role: [...] 9:00 AM EDT Office [place] [address] Dion Osullivan MD [facility] [place] [address] 09/01/2024 9:40 AM EDT Office Visit Cardiology at [address] [phone] Franky Shaver MD [facility] [place] [address] 09/01/2024 11:20 AM EDT Office Visit Dermatology at [address] [place] [address] Gómez Mercer MD [facility] [place] [address] 09/21/2024 2:45 PM EDT Office Visit [place] [address] Trung Hoyos MD [facility] [place] [address] documented as of this encounter Procedures Procedure [...] 5:54 PM EST) Surgical Pathology Report ? [facility] ? Provider: ?? Dion OSULLIVAN ?Pt. Name: ?? SHANT NAYA Joya ? Acc #: ?[id number] ?Pt. ? Col Date: ?? 10/01/2012 ? [...] is: ? 62 yo with dyspepsia DURGA RFEDERICK 10/01/2012 5:54 PM EST L Karthik Osullivan MD PATHOLOGY/CYTOLOGY O CEE Performing Organization Address City/[facility] Co de Phone Number [facility] * Specimen to Pathology (surgical or derm) (10/01/2012 5:09 PM EST) AP Specimen 10/01/2012 5:09 PM EST 10/01/2012 5:09 PM EST Narrative [facility] - 10/01/2012 5:09 PM EST Specimen requisition ordered. ??Separate Pathology report to follow L Karthik Osullivan MD PATHOLOGY/CYTOLOGY O CEE [facility] * UPPER GI ENDOSCOPY (10/01/2012 4:41 PM EST) UPPER GI ENDOSCOPY [facility] Endoscopy Patient Name: Naya Rodriguez ? Procedure Date: 10/01/2012 4:41 PM ? Date of : 1950 ? Age: 62 ? Order #: [id number] ? Procedure: ? Upper GI endoscopy Indications: ? Epigastric abdominal pain Providers: ? L Karthik Osullivan MD, Alannah Singletary, ? RN, Mona Osborne, Media Marketing Manager Referring : ?Maximilian Fall MD Medicines: [...] GENERAL SURGICAL ORD ERABLES Performing Organization Address [facility] Co de Phone Number PROVATION * POCT GLUCOSE (10/01/2012 4:27 PM EST) Glucose, POC 84 60 - 199 mg/dL [facility] Comment: Supplemental ranges: <110 mg/dL [...] documented in this encounter Care Teams Manager Advanced Relationship Specialty Start Date End Date Maximilian Fall MD [address] [place] [address] PCP - General 10/01/11 02/13/21 documented as of this encounter
--- OUTSIDE RECORDS SUMMARY | 2024-07-20 13:39 | XMS_ITS | Encounter Summary ---
Author Organization [facility] Address [facility] [place] [address] Care Team Providers Care Sous Chef Name Role Phone More Naylor MD Primary Care Provider [phone] Reason for Visit * Reason Comments Follow-up Encounter Details Date Type Department Care Team (Late st Contact Info) Description 11/01/2013 2:00 PM EST [place] [address] Dion Barlow MD [facility] [place] [address] Ulcerative colitis (Primary Dx) Discharge Disposition: Home [...] ??? Ulcerative colitis Colonoscopy 04/08/10 (Dr. Gomes [facility]) - inflammation only within the rectum and sigmoid; extent of the exam was to the hepatic flexure; biopsies proximal to the sigmoid nl Repeat exam [facility] has left-sided ulcerative colitis with persistently active gmmn-wv-hqtylijl symptom - now worse off of his [...] CC: MORE NAYLOR MD [address] [place] [address] documented in this encounter Plan of Treatment Upcoming Encounters Date Type Department Care Team (Late st Contact Info) Description 08/15/2024 9:00 AM EDT Office [place] [address] Dion Barlow MD [facility] [place] [address] 09/01/2024 9:40 AM EDT Office Visit Cardiology at [address] [place] [phone] Franky Shaver MD [facility] [place] [address] 09/01/2024 11:20 AM EDT Office Visit Dermatology at [facility] [address] [place] [phone] Gómez Mercer MD [facility] DR EDD[place] [address] 09/21/2024 2:45 PM EDT Office Visit Pain and Spine Center at [facility] [address] [place] [address] Trung Hoyos MD [facility] [place] [address] documented as of this encounter Procedures Procedure [...] L Karthik Barlow MD HEMATOLOGY ORDERABLE S [facility] MILLENNIUM * (ABNORMAL) Comprehensive metabolic [...] unspecified documented in this encounter Care Teams Sous Chef Relationship Specialty Start Date End Date More Naylor MD [address] [place] [address] PCP - General 10/01/11 02/13/21 documented as of this encounter
--- OUTSIDE RECORDS SUMMARY | 2024-07-20 13:39 | XMS_ITS | Encounter Summary ---
Author Organization [facility] [place] [address] Care Team Providers Care Child Care Lead Teacher Name Role Phone Maximilian Fall MD Primary Care Provider [phone] Reason for Visit * Reason Onset Date Comments Medication Refill 04/05/2014 Encounter Details Date Type Department Care Team (Late st Contact Info) Description 04/05/2014 Refill [place] [address] Dion Barlow MD [facility] [place] [place] [address] Social History Tobacco Use Types Packs/Day Years [...] 9:00 AM EDT Office [place] [address] Dion Barlow MD [facility] [place] [address] 09/01/2024 9:40 AM EDT Office Visit Cardiology at [address] [place] [address] Franky Shaver MD [facility] [place] [address] 09/01/2024 11:20 AM EDT Office Visit Dermatology at [facility] [address] [place] [address] Gómez Mercer MD [facility] [place] [address] 09/21/2024 2:45 PM EDT Office Visit Pain and Spine Center at [facility] [place] [address] Trung Hoyos MD [facility] [place] [address] documented as of this encounter Visit Diagnoses Not on filedocumented in this encounter Care Teams Child Care Lead Teacher Relationship Specialty Start Date End Date Maximilian Fall MD [address] [facility] 1 [place] [address] PCP - General 10/01/11 02/13/21 documented as of this encounter
--- OUTSIDE RECORDS SUMMARY | 2024-07-20 13:39 | XMS_ITS | Encounter Summary ---
Author Organization [facility] [place] [address] Care Team Providers Care Geodetic Surveyor Name Role Phone Maximilian Fall MD Primary Care Provider Encounter Details Date Type Department Care Team (Late st Contact Info) Description 03/03/2012 Orders [place] [phone] Mica Gore APRN [facility] [place] [address] Ulcerative colitis (Primary Dx) Social History Tobacco [...] EDT Office Visit [place] [address] Dion Barlow MD [facility] [place] [address] 09/01/2024 9:40 AM EDT Office Visit Cardiology at [address] [place] [address] Franky Shaver MD [facility] [place] [address] 09/01/2024 11:20 AM EDT Office Visit Dermatology at [facility] [address] [place] [address] Gómez Mercer MD [facility] DR EDDIE [place] [address] 09/21/2024 2:45 PM EDT Office Visit [facility] [place] [address] Trung Hoyos MD [facility] [place] [address] documented as of this encounter Procedures Procedure Name Priority Date/Time Associated Diagnosis Comments FLEXIBLE SIGMOIDOSCOPY Routine 2 1:15 PM EDT Ulcerative colitis documented in this encounter Results * FLEXIBLE SIGMOIDOSCOPY (03/16/2012 1:15 PM EDT) [facility] Signature FLEXIBLE SIGMOIDOSCOPY [facility] Endoscopy Patient Name: Brian Rodriguez ? Procedure Date: 03/16/2012 1:15 PM ? Date of : 1950 ? Age: 61 ? Order #: [id number] ? Procedure: ? Flexible Sigmoidoscopy Indications: ? pt with active UC, assess severity ? prior to entry in MTX study Providers: ? Enrico Tellez MD, April Augustine ? RONY Archibald, Kingsley Oneal, ? Valuation Consultant Referring MD: ?Maximilian Fall MD Requesting Provider: Sheryr Barlow Medicines: ? Fentanyl 100 micrograms IV, [...] GENERAL SURGICAL ORD ERABLES Performing Organization Address City/State/[facility] Co de Phone Number PROVATION documented in this encounter Visit Diagnoses Diagnosis Ulcerative colitis- Primary Ulcerative colitis, unspecified documented in this encounter Care Teams Geodetic Surveyor Relationship Specialty Start Date End Date Maximilian Fall MD [address] [place] [address] PCP - General 10/01/11 02/13/21 documented as of this encounter
--- OUTSIDE RECORDS SUMMARY | 2024-07-20 13:39 | XMS_ITS | Encounter Summary ---
Author Organization [facility] [place] [address] Care Team Providers Care Pageant Director Name Role Phone Maximilian Fall MD Primary Care Provider [phone] Encounter Details Date Type Department Care Team (Late st Contact Info) Description 09/21/2015 Telephone [place] [address] Marcelle Weinberg, GEOMATICS PROFESSOR [facility] [place] [address] Social History Tobacco Use Types Packs/Day Years [...] 9:00 AM EDT Office [place] [address] Dion Barlow MD [facility] [place] [address] 09/01/2024 9:40 AM EDT Office Visit Cardiology at [address] [address] Franky Shaver MD [facility] [place] [address] 09/01/2024 11:20 AM EDT Office Visit Dermatology at [facility] [address] [place] [address] Gómez Mercer MD [facility] DR EDD[place] [address] 09/21/2024 2:45 PM EDT Office Visit Pain and Spine Center at [facility] [place] [address] Trung Hoyos MD [facility] [place] [address] documented as of this encounter Visit Diagnoses Not on filedocumented in this encounter Care Teams Pageant Director Relationship Specialty Start Date End Date Maximilian Fall MD [address] [place] [address] PCP - General 10/01/11 02/13/21 documented as of this encounter
--- OUTSIDE RECORDS SUMMARY | 2024-07-20 13:39 | XMS_ITS | Encounter Summary ---
Author Organization [facility] Address [facility] [place] [address] Care Team Providers Care Reproductive Endocrinologist Name Role Phone Maximilian Fall MD Primary Care Provider [phone] Encounter Details Date Type Department Care Team (Late st Contact Info) Description 03/16/2012 Orders [place] [phone] Dion Barlow MD [facility] [place] [address] Ulcerative colitis (Primary Dx) Social History Tobacco [...] EDT Office [place] [address] Dion Barlow MD [facility] [place] [address] 09/01/2024 9:40 AM EDT Office Visit Cardiology at [address] [place] [phone] Franky Shaver MD [facility] [place] [address] 09/01/2024 11:20 AM EDT Office Visit Dermatology at [facility] [address] [place] [address] Gómez Mercer MD [facility] DR EDDIE [place] [address] 09/21/2024 2:45 PM EDT Office Visit [place] [phone] Trung Hoyos MD [facility] [place] [address] documented as of this encounter Visit Diagnoses Diagnosis Ulcerative colitis- Primary Ulcerative colitis, unspecified documented in this encounter Care Teams Reproductive Endocrinologist Relationship Specialty Start Date End Date Maximilian Fall MD [address] [facility] 1 [place] [address] PCP - General 10/01/11 02/13/21 documented as of this encounter
--- OUTSIDE RECORDS SUMMARY | 2024-07-20 13:39 | XMS_ITS | Encounter Summary ---
Author Organization [facility] Address [facility] [place] [address] Care Team Providers Care Scientific Research Associate Name Role Phone Maximilian Fall MD Primary Care Provider [phone] Encounter Details Date Type Department Care Team (Late st Contact Info) Description 09/11/2014 10:00 AM EDT Follow-[place] [address] Dion Barlow MD [facility] [place] [address] Ulcerative colitis, other complication (Primary Dx) Discharge [...] Note: ?? Colonoscopy 04/08/10 (Dr. Gomes [facility]) - inflammation only within the rectum and [...] 6 months or sooner. Davina Barlow MD Head Athletic Trainerbenefits administrator Section of Gastroenterology [place] [address] documented in this encounter Plan of Treatment Upcoming Encounters Date Type Department Care Team (Late st Contact Info) Description 08/15/2024 9:00 AM EDT Office Visit [place] [address] Dion Barlow MD [facility] [place] [address] 09/01/2024 9:40 AM EDT Office Visit Cardiology at [address] [phone] Franky Shaver MD [facility] [place] [address] 09/01/2024 11:20 AM EDT Office Visit Dermatology at [facility] [address] [place] [address] Gómez Mercer MD [facility] DR EDDIE [place] [address] 09/21/2024 2:45 PM EDT Office Visit [facility] [place] [address] Trung Hoyos MD [facility] [place] [address] documented as of this encounter Visit Diagnoses Diagnosis Ulcerative colitis, other complication- Primary documented in this encounter Care Teams Scientific Research Associate Relationship Specialty Start Date End Date Maximilian Fall MD [address] [place] [address] PCP - General 10/01/11 02/13/21 documented as of this encounter
--- OUTSIDE RECORDS SUMMARY | 2024-07-20 13:39 | XMS_ITS | Encounter Summary ---
Author Organization [facility] [place] [address] Care Team Providers Care Fur Trimmer Name Role Phone Maximilian Fall MD Primary Care Provider [phone] Reason for Visit * Reason Onset Date Comments Medication Refill 11/22/2012 Encounter Details Date Type Department Care Team (Late st Contact Info) Description 11/22/2012 Ref[place] [address] Dion aBrlow MD [facility] [place] [address] Ulcerative colitis (Primary Dx) Social History Tobacco [...] 9:00 AM EDT Office [place] [phone] Dion Barlow MD [facility] [place] [address] 09/01/2024 9:40 AM EDT Office Visit Cardiology at [address] [place] [address] Franky Shaver MD [facility] [place] [address] 09/01/2024 11:20 AM EDT Office Visit Dermatology at [facility] [address] [place] [address] Gómez Mercer MD [facility] DR [place] [address] 09/21/2024 2:45 PM EDT Office Visit Pain and Spine Center at [facility] [place] [address] Trung Hoyos MD [facility] [place] [address] documented as of this encounter Visit Diagnoses Diagnosis Ulcerative colitis- Primary Ulcerative colitis, unspecified documented in this encounter Care Teams Fur Trimmer Relationship Specialty Start Date End Date Maximilian Fall MD [address] [facility] 1 [place] [address] PCP - General 10/01/11 02/13/21 documented as of this encounter
--- OUTSIDE RECORDS SUMMARY | 2024-07-20 13:39 | XMS_ITS | Encounter Summary ---
Author Organization [facility] Address [facility] [place] [address] Care Team Providers Care Dye Beck Reel Operator Name Role Phone Maximilian Fall MD Primary Care Provider [phone] Encounter Details Date Type Department Care Team (Late st Contact Info) Description 03/16/2012 2:30 PM EDT - 03/16/2012 3:30 PM EDT Surgery [place] [address] Enrico Tellez MD [facility] [place] [address] FLEXIBLE SIGMOIDOSCOPY (WRVU 0.84) Social History Tobacco [...] please contact your M. D. Please call [phone] BEFORE 5PM with any questions or concerns, AFTER 5PM call [phone] andask to speak to the Senior Front End Web Developer finisher accordion. * Patient Instructions* Enrico Tellez MD - [...] 9:00 AM EDT Office [place] [address] Dion Barlow MD [facility] [place] [address] 09/01/2024 9:40 AM EDT Office Visit Cardiology at [address] [place] [address] Franky Shaver MD [facility] [place] [address] 09/01/2024 11:20 AM EDT Office Visit Dermatology at [place] [address] [place] [phone] Gómez Mercer MD [facility] [place] [address] 09/21/2024 2:45 PM EDT Office Visit [facility] [place] [phone] Trung Hoyos MD [facility] [place] [address] documented as of this encounter Procedures Procedure Name Priority Date/Time Associated Diagnosis Comments SURGICAL PATHOLOGY REPORT Routine 03/16/2012 4:52 PM EDT SPECIMEN TO PATHOLOGY Routine 03/16/2012 2:09 PM EDT FLEXIBLE SIGMOIDOSCOPY (WRVU 0.84) 03/16/2012 1:27 PM EDT study patient POCT GLUCOSE Routine 03/16/2012 1:16 PM EDT documented in this encounter Results * SURGICAL PATHOLOGY REPORT (03/16/2012 4:52 PM EDT) Surgical Pathology Report ? [facility] ? Provider: ?? ENRICO TELLEZ ?Pt. Name: ?? NAYA RODRIGUEZ ? Acc #: [id number] ?Pt. ? Col Date: ?? 03/16/2012 ? [...] PATHOLOGY/CYTOLOGY O CEE Performing Organization Address [facility] de Phone Number DURGA FREDERICK * Specimen to Pathology (surgical or derm) (03/16/2012 2:09 PM EDT) AP Specimen 03/16/2012 2:09 PM EDT 03/16/2012 2:09 PM EDT Narrative DURGA TIAGOTADEOIUM - 03/16/2012 2:09 PM EDT Specimen requisition ordered. ??Separate Pathology report to follow Enrico Tellez MD PATHOLOGY/CYTOLOGY O CEE Performing Organization Address [facility] de Phone Number DURGA FREDERICK * POCT GLUCOSE LAB USE ONLY (03/16/2012 1:16 PM EDT) Glucose, POC 116 60 - 199 mg/dL DURGA TIAGOTADEOIUM Comment: Supplemental ranges: <110 mg/dL before meals <200 mg/dL all other times of the day Blood specimen (specimen) 03/16/2012 1:16 PM EDT 03/16/2012 1:16 PM EDT Enrico Tellez MD POINT OF CARE TEST O CEE Performing Organization Address [facility] de Phone Number DURGA FREDERICK documented in [...] 1334 (Given - Provid er: April A [place], RN)1337 (Given - Provider: April Archibald RN)1344 (Given - Provider: April Archibald RN) documented in this encounter Care Teams Dye Beck Reel Operator Relationship Specialty Start Date End Date Maximilian Fall MD [address] [place] [address] PCP - General 10/01/11 02/13/21 documented as of this encounter
--- OUTSIDE RECORDS SUMMARY | 2024-07-20 13:39 | XMS_ITS | Encounter Summary ---
Author Organization [facility] [place] [address] Care Team Providers Care Office Manager Executive Assistant Name Role Phone Maximilian Fall MD Primary Care Provider [phone] Encounter Details Date Type Department Care Team (Late st Contact Info) Description 09/30/2012 Telephone [place] [phone] Lilliana Reece RN Social History Tobacco Use [...] 9:00 AM EDT Office Visit [place] [address] Dion Barlow MD [facility] [place] [address] 09/01/2024 9:40 AM EDT Office Visit Cardiology at [address] [place] [address] Franky Shaver MD [facility] [place] [address] 09/01/2024 11:20 AM EDT Office Visit Dermatology at [facility] [address] [place] [address] Gómez Mercer MD [facility]-[place] [address] 09/21/2024 2:45 PM EDT Office Visit [facility] [place] [address] Trung Hoyos MD [facility] PA[place] [address] documented as of this encounter Visit Diagnoses Not on filedocumented in this encounter Care Teams Office Manager Executive Assistant Relationship Specialty Start Date End Date Maximilian Fall MD [address] [facility] 1 [place] [address] PCP - General 10/01/11 02/13/21 documented as of this encounter
--- OUTSIDE RECORDS SUMMARY | 2024-07-20 13:39 | XMS_ITS | Encounter Summary ---
Author Organization [facility] Address [facility] [place] [address] Care Team Providers Care Tool Clerk Name Role Phone Maximilian Fall MD Primary Care Provider [phone] Reason for Visit * Reason Comments Follow-up Encounter Details Date Type Department Care Team (Late st Contact Info) Description 09/17/2015 4:00 PM EDT Office [place] [address] Marcelle Weinberg, JAZMINE [facility] [place] [address] Left sided colitis, unspecified complication Social History [...] Note: ?? Colonoscopy 04/08/10 (Dr. Gomes [facility]) - inflammation only within the rectum and sigmoid; extent of the exam was to the hepatic flexure; biopsies proximal to the sigmoid nl ?? Repeat exam 11/27/11 ([facility] [...] 9:00 AM EDT Office [place] [address] Dion Barlow MD [facility] [place] [address] 09/01/2024 9:40 AM EDT Office Visit Cardiology at [address] [address] Franky Shaver MD [facility] [place] [address] 09/01/2024 11:20 AM EDT Office Visit Dermatology at [facility] [address] [place] [address] Gómez Mercer MD [facility] DR EDDIE [place]ANC[place] [address] 09/21/2024 2:45 PM EDT Office Visit [place] [address] Trung Hoyos MD [facility] [place] [address] documented as of this encounter Procedures Procedure [...] MD HEMATOLOGY ORDERABLE S Performing Organization Address City/[facility]/ZIP Co de Phone Number CERGIOVANNI ORDOÑEZENNIUM [...] EDT) C-Reactive Protein High Sensitivity 2.9 mg/L [facility] Comment: Interpretations: 1) For accurate [...] Barlow MD CHEMISTRY ORDERABLES Performing Organization Address [facility] de Phone Number [facility] * (ABNORMAL) Sedimentation rate (09/17/2015 4:30 PM EDT) [facility] Sedimentation Rate Automated 17(H) 0 - 15 mm/hr [facility] Blood specimen (specimen) 09/17/2015 4:30 PM EDT 09/17/2015 4:33 PM EDT Narrative Resulting Agency Comment Spec In Lab L Karthik Barlow MD HEMATOLOGY ORDERABLE S Performing Organization Address [facility] Co de Phone Number [facility] * (ABNORMAL) CMP w/fasting Glucose (09/17/2015 4:30 [...] of Diabetes Mellitus, Position Statement from the [place] [employer]. ??Diabetes Care, Volume 33, Supplement 1, Nov 2009 Blood Urea Nitrogen 17 10 - 20 mg/dL CERNER MILLENNIUM Creatinine 1.10 0.80 - 1.50 mg/dL CERNER MILLENNIUM Comment: Please note that the pediatric reference intervals supplied above were not validated at [facility]. Results from pediatric patients [...] the following links into your internet browser. [email or web address] Blood specimen (specimen) 09/17/2015 4:30 PM EDT 09/17/2015 4:33 PM EDT Narrative Resulting Agency Comment Spec In Lab L Karthik Barlow MD CHEMISTRY ORDERABLES DURGA FREDERICK documented in this encounter Visit Diagnoses Diagnosis Left sided colitis, unspecified complication documented in this encounter Care Teams Tool Clerk Relationship Specialty Start Date End Date Maximilian Fall MD [address] [place] [address] PCP - General 10/01/11 02/13/21 documented as of this encounter
--- OUTSIDE RECORDS SUMMARY | 2024-07-20 13:39 | XMS_ITS | Encounter Summary ---
Author Organization [facility] Address [facility] [place] [address] Care Team Providers Care Ivory Polisher Name Role Phone Maximilian Fall MD Primary Care Provider [phone] Reason for Visit * Reason Comments Follow-up Encounter Details Date Type Department Care Team (Late st Contact Info) Description 03/13/2015 1:00 PM EDT [place] [address] Dion Barlow MD [facility] [place] [address] Ulcerative colitis, other complication; Lethargy; Other ulcerative [...] Overview Note: ?? Colonoscopy 04/08/10 (Dr. Gomes [facility]) - inflammation only within the rectum [...] 6 months or sooner. Davina Barlow MD Technical Communication Teacherassembler handbags Section of Gastroenterology [place] [address] documented in this encounter Plan of Treatment Upcoming Encounters Date Type Department Care Team (Late st Contact Info) Description 08/15/2024 9:00 AM EDT Office [place] [address] Dion Barlow MD [facility] [place] [address] 09/01/2024 9:40 AM EDT Office Visit Cardiology at [address] [address] Franky Shaver MD [facility] [place] [address] 09/01/2024 11:20 AM EDT Office Visit Dermatology at [address] [address] Gómez Mercer MD [facility] DR EDDIE [place] [address] 09/21/2024 2:45 PM EDT Office Visit [place] [address] Trung Hoyos MD [facility] [place] [address] Scheduled Orders Name Type Priority Associated Diagnoses [...] MD HEMATOLOGY ORDERABLE S Performing Organization Address [facility]/State/ZIP Co de Phone Number CERGIOVANNI ORDOÑEZENNIUM [...] Barlow MD CHEMISTRY ORDERABLES Performing Organization Address [facility] Co de Phone Number DURGA [...] Barlow MD CHEMISTRY ORDERABLES Performing Organization Address [facility]/ZIP Co de Phone Number JO-ANNGIOVANNI ORDOÑEZENNIUM * [...] supplied above were not validated at [facility]. Results from pediatric patients should be interpreted [...] the following links into your internet browser. [email or web address] Blood specimen (specimen) 03/13/2015 2:00 PM EDT 03/13/2015 2:14 PM EDT Narrative Resulting Agency Comment Spec In Lab L Karthik Barlow MD CHEMISTRY ORDERABLES DURGA FREDERICK documented in this encounter Visit Diagnoses Diagnosis Ulcerative colitis, other complication Lethargy Other malaise and fatigue Other ulcerative colitis documented in this encounter Care Teams Ivory Polisher Relationship Specialty Start Date End Date Maximilian Fall MD [address] [place] [address] PCP - General 10/01/11 02/13/21 documented as of this encounter
--- OUTSIDE RECORDS SUMMARY | 2024-07-20 13:39 | XMS_ITS | Encounter Summary ---
Author Organization [facility] Address [facility] [place] [address] Care Team Providers Care Site Supervisor Name Role Phone More Naylor MD Primary Care Provider [phone] Reason for Visit * Reason Comments Follow-up Encounter Details Date Type Department Care Team (Late st Contact Info) Description 09/20/2012 10:00 AM EDT [place] [address] Dion Barlow MD [facility] [place] [place] [address] Ulcerative colitis (Primary Dx); Dyspepsia; UC (ulcerative [...] has left-sided ulcerative colitis with persistently active dtmh-mk-jufosook symptoms andmildly active disease endoscopically. His colitis [...] MD [address] [facility] [address] documented in this encounter Plan of Treatment Upcoming Encounters Date Type Department Care Team (Late st Contact Info) Description 08/15/2024 9:00 AM EDT Office [place] [address] Dion Barlow MD [facility] [place] [address] 09/01/2024 9:40 AM EDT Office Visit Cardiology at [address] [address] Franky Shaver MD [facility] [place] [address] 09/01/2024 11:20 AM EDT Office Visit Dermatology at [address] [address] Gómez Mercer MD [facility] [place] [address] 09/21/2024 2:45 PM EDT Office Visit [place] [address] Trung Hoyos MD [facility] [place] [address] documented as of this encounter Procedures Procedure [...] MD HEMATOLOGY ORDERABLE S Performing Organization Address [facility] Co de Phone Number DURGA FREDERICK * (ABNORMAL) TSH (09/20/2012 11:17 AM EDT) Thyroid Stimulating Hormone 4.77(H) 0.27 - 4.20 mcIU/mL DURGA COLBERTIUM Blood specimen (specimen) 09/20/2012 11:17 AM EDT 09/20/2012 11:23 AM EDT Narrative Resulting Agency Comment Spec In Lab L Karthik Barlow MD CHEMISTRY ORDERABLES Performing Organization Address [facility] Phone Number DURGA COLBERTIUM * Lipase (09/20/2012 11:17 AM EDT) Lipase 32 0 - 60 unit/L DURGA COLBERTIUM Blood specimen (specimen) 09/20/2012 11:17 AM EDT 09/20/2012 11:23 AM EDT Narrative Resulting Agency Comment Spec In Lab L Karthik Barlow MD CHEMISTRY ORDERABLES Performing Organization Address [facility] Phone Number DURGA COLBERTIUM * High Sensitivity CRP (09/20/2012 11:17 AM EDT) C-Reactive Protein High Sensitivity 3.7 mg/L [facility] Comment: Interpretations: 1) For cardiac [...] Karthik Barlow MD CHEMISTRY ORDERABLES [facility] * (ABNORMAL) CMP w/fasting Glucose (09/20/2012 11:17 AM EDT) Glucose Fasting 110(H) 65 - 99 mg/dL [facility] Comment: ?Fasting* Glucose Interpretive Criteria Normal [...] of Diabetes Mellitus, Position Statement from the [place] Diabetes [employer]. ??Diabetes Care, Volume 33, Supplement [...] unspecified documented in this encounter Care Teams Site Supervisor Relationship Specialty Start Date End Date More Naylor MD [address] [place] [address] PCP - General 10/01/11 02/13/21 documented as of this encounter
--- OUTSIDE RECORDS SUMMARY | 2024-07-20 13:39 | XMS_ITS | Encounter Summary ---
Author Organization [facility] Address [facility] [place] [address] Care Team Providers Care Candle Pourer Name Role Phone Maximilian Fall MD Primary Care Provider [phone] Encounter Details Date Type Department Care Team (Late st Contact Info) Description 09/11/2014 Orders [place] [phone] Bethany Trivedi RN Other ulcerative colitis (Primary [...] EDT Office [place] [address] Dion Barlow MD [facility] [place] [address] 09/01/2024 9:40 AM EDT Office Visit Cardiology at [address] [phone] Franky Shaver MD [facility] [place] [address] 09/01/2024 11:20 AM EDT Office Visit Dermatology at [facility] [address] [place] [address] Gómez Mercer MD [facility] DR EDDIE [place] [address] 09/21/2024 2:45 PM EDT Office Visit Pain and Spine Center at [facility] [place] [address] Trung Hoyos MD [facility] [place] [address] documented as of this encounter Visit Diagnoses Diagnosis Other ulcerative colitis- Primary documented in this encounter Care Teams Candle Pourer Relationship Specialty Start Date End Date Maximilian Fall MD [address] [place] [address] PCP - General 10/01/11 02/13/21 documented as of this encounter
--- OUTSIDE RECORDS SUMMARY | 2024-07-20 13:39 | XMS_ITS | Encounter Summary ---
Author Organization [facility] Address [facility] [place] [address] Care Team Providers Care Canvas Shop Laborer Name Role Phone Maximilian Fall MD Primary Care Provider [phone] Encounter Details Date Type Department Care Team (Late st Contact Info) Description 10/01/2012 4:15 PM EST - 10/01/2012 4:45 PM EST Surgery [place] [address] Dion Osullivan MD [facility] [address] UPPER GI ENDOSCOPY Social History Tobacco Use [...] GI ENDOSCOPY: WHAT TO EXPECT AT HOME ([place]) documented in this encounter Medications at [...] Operative Note Patient Name: Naya Rodriguez : [id number] MR#: [id number] Case Date: 10/01/2012 Surgeon: Surgeon(s) and Role: [...] 9:00 AM EDT Office [place] [address] Dion Osullivan MD [facility] [place] [address] 09/01/2024 9:40 AM EDT Office Visit Cardiology at [address] [phone] Franky Shaver MD [facility] [place] [address] 09/01/2024 11:20 AM EDT Office Visit Dermatology at [address] [place] [address] Gómez Mercer MD [facility] [place] [address] 09/21/2024 2:45 PM EDT Office Visit [place] [address] Trung Hoyos MD [facility] [place] [address] documented as of this encounter Procedures Procedure [...] 5:54 PM EST) Surgical Pathology Report ? [facility] ? Provider: ?? Dion OSULLIVAN ?Pt. Name: ?? NAYA RODRIGUEZ ? Acc #: ?[id number] ?Pt. ? Col Date: ?? 10/01/2012 ? [...] Performing Organization Address City/[facility] Co de Phone Number DURGA FREDERICK * Specimen to Pathology (surgical or derm) (10/01/2012 5:09 PM EST) AP Specimen 10/01/2012 5:09 PM EST 10/01/2012 5:09 PM EST Narrative [facility] - 10/01/2012 5:09 PM EST Specimen requisition ordered. ??Separate Pathology report to follow L Karthik Osullivan MD PATHOLOGY/CYTOLOGY O CEE [facility] * UPPER GI ENDOSCOPY (10/01/2012 4:41 PM EST) UPPER GI ENDOSCOPY [facility] Endoscopy Patient Name: Naya Rodriguez ? Procedure Date: 10/01/2012 4:41 PM ? Date of : 1950 ? Age: 62 ? Order #: [id number] ? Procedure: ? Upper GI endoscopy Indications: ? Epigastric abdominal pain Providers: ? L Karthik Osullivan MD, Alannah Singletary, ? RN, Mona Osborne, Prop Attendant Referring : ?Maximilian Fall MD Medicines: ? [...] GENERAL SURGICAL ORD ERAOMAR Performing Organization Address City/[facility] Co de Phone Number PROVATION * POCT GLUCOSE (10/01/2012 4:27 PM EST) Glucose, POC 84 60 - 199 mg/dL [facility] Comment: Supplemental ranges: <110 mg/dL before meals <200 mg/dL all other times of the day Blood specimen (specimen) 10/01/2012 4:27 PM EST 10/01/2012 4:27 PM EST Dion Osullivan MD POINT OF CARE TEST O RDEMLISSA DURGA FREDERICK documented in this encounter Visit [...] Provider: Alannah Singletary RN)165 (Given - Provider: Alananh Singletary RN) midazolam (VERSED) injection (CANCELED) ONCE PRN, Starting on Thu10/01/12 at 1654, Until Thu10/01/12 at 2031, Sleep, Intra-Operative (Intra-Procedure), Routine 1653 (Given - Provid er: Alannah Singletary RN)165 (Given - Provider: Alannah Singletary RN) documented in this encounter Care Teams Canvas Shop Laborer Relationship Specialty Start Date End Date Maximilian Fall MD [address] [place] [address] PCP - General 10/01/11 02/13/21 documented as of this encounter
--- OUTSIDE RECORDS SUMMARY | 2024-07-20 13:39 | XMS_ITS | Encounter Summary ---
Author Organization [facility] Address [facility] [place] [address] Care Team Providers Care Reconsignment Clerk Name Role Phone Maximilian Fall MD Primary Care Provider [phone] Encounter Details Date Type Department Care Team (Late st Contact Info) Description 03/02/2012 External Results [place] [address] Dion Barlow MD [facility] [place] [address] Social History Tobacco Use Types Packs/Day Years [...] 9:00 AM EDT Office Visit [place] [phone] Dion Barlow MD [facility] [place] [address] 09/01/2024 9:40 AM EDT Office Visit Cardiology at [address] [place] [phone] Franky Shaver MD [facility] [place] [address] 09/01/2024 11:20 AM EDT Office Visit Dermatology at [facility] [address] [place] [phone] Gómez Mercer MD [facility] [place] [address] 09/21/2024 2:45 PM EDT Office Visit Pain and Spine Center at [facility] [place] [phone] Trung Hoyos MD [facility] [address] documented as of this encounter Procedures Procedure Name Priority Date/Time Associated Diagnosis Comments EXTERNAL LAB RESULTS Routine 03/04/2012 documented in this encounter Results * External Lab Results (03/04/2012) Blood specimen (specimen) L Karthik Barlow MD CHEMISTRY ORDERABLES documented in this encounter Visit Diagnoses Not on filedocumented in this encounter Care Teams Reconsignment Clerk Relationship Specialty Start Date End Date Maximilian Fall MD [facility] [address] [facility] 1 [place] [address] PCP - General 10/01/11 02/13/21 documented as of this encounter
--- OUTSIDE RECORDS SUMMARY | 2024-07-20 13:39 | XMS_ITS | Encounter Summary ---
Author Organization [facility] Address [facility] [place] [address] Care Team Providers Care Image Consultant Name Role Phone Maximilian Fall MD Primary Care Provider [phone] Reason for Visit * Reason Comments Follow-up Encounter Details Date Type Department Care Team (Late st Contact Info) Description 06/05/2014 9:30 AM EDT [place] [address] Marcelle Weinberg, JAZMINE [facility] [place] [address] Other ulcerative colitis (Primary Dx) Discharge Disposition: [...] 9:00 AM EDT Office [place] [address] Dion Barlow MD [facility] [place] [address] 09/01/2024 9:40 AM EDT Office Visit Cardiology at [address] [phone] Franky Shaver MD [facility] [place] [address] 09/01/2024 11:20 AM EDT Office Visit Dermatology at [facility] [address] [place] [address] Gómez Mercer MD [facility] DR [place] [address] 09/21/2024 2:45 PM EDT Office Visit [place] [address] Trung Hoyos MD [facility] [place] [address] Scheduled Orders Name Type Priority Associated Diagnoses Orde r Schedule COLONOSCOPY Procedures Routine Other ulcerative colitis Ordered: 06/05/2014 documented as of this encounter Visit Diagnoses Diagnosis Other ulcerative colitis- Primary documented in this encounter Care Teams Image Consultant Relationship Specialty Start Date End Date Maximilian Fall MD [address] [place] [address] PCP - General 10/01/11 02/13/21 documented as of this encounter
--- OUTSIDE RECORDS SUMMARY | 2024-07-20 13:39 | XMS_ITS | Encounter Summary ---
Author Organization [facility] Address [facility] [place] [address] Care Team Providers Care R D Intern Name Role Phone Maximilian Fall MD Primary Care Provider [phone] Encounter Details Date Type Department Care Team (Late st Contact Info) Description 03/02/2012 External Results [place] [address] Dion Barlow MD [facility] [place] [address] Social History Tobacco Use Types Packs/Day Years [...] 9:00 AM EDT Office [place] [phone] Dion Barlow MD [facility] [place] [address] 09/01/2024 9:40 AM EDT Office Visit Cardiology at [address] [place] [phone] Franky Shaver MD [facility] [place] [address] 09/01/2024 11:20 AM EDT Office Visit Dermatology at [facility] [address] [place] [address] Gómez Mercer MD [facility] DR [place] [address] 09/21/2024 2:45 PM EDT Office Visit Pain and Spine Center at [facility] [place] [address] Trung Hoyos MD [facility] [place] [address] documented as of this encounter Procedures Procedure Name Priority Date/Time Associated Diagnosis Comments EXTERNAL LAB RESULTS Routine 03/02/2012 documented in this encounter Results * External Lab Results (03/02/2012) Stool specimen (specimen) 03/02/2012 L Karthik Barlow MD CHEMISTRY ORDERABLES documented in this encounter Visit Diagnoses Not on filedocumented in this encounter Care Teams R D Intern Relationship Specialty Start Date End Date Maximilian Fall MD [facility] [address] [facility] [place] [address] PCP - General 10/01/11 02/13/21 documented as of this encounter
--- OUTSIDE RECORDS SUMMARY | 2024-07-20 13:39 | XMS_ITS | Encounter Summary ---
Author Organization [facility] Address [facility] [place] [address] Care Team Providers Care Cotton Buyer Name Role Phone More Naylor MD Primary Care Provider [phone] Reason for Visit * Reason Comments Follow-up Encounter Details Date Type Department Care Team (Late st Contact Info) Description 04/02/2012 12:30 PM EDT Follow-[place] [address] Marcelle Weinberg, JAZMINE [facility] [place] [address] UC (ulcerative colitis) (Primary Dx) Discharge Disposition: [...] Ulcerative colitis Colonoscopy 04/08/10 (Dr. Gomes [facility]) - inflammation only within the rectum and sigmoid; extent of the exam was to the hepatic flexure; biopsies proximal to the sigmoid nl Repeat exam 11/27/11 ([facility] [...] CC: MORE NAYLOR MD [address] [facility] [address] documented in this encounter Plan of Treatment Upcoming Encounters Date Type Department Care Team (Late st Contact Info) Description 08/15/2024 9:00 AM EDT Office [place] [phone] Dion Barlow MD [facility] [address] 09/01/2024 9:40 AM EDT Office Visit Cardiology at [address] [phone] Franky Shaver MD [facility] [place] [address] 09/01/2024 11:20 AM EDT Office Visit Dermatology at [facility] [address] [place] [address] Gómez Mercer MD [facility] [address] [place] [address] 09/21/2024 2:45 PM EDT Office Visit [place] [address] Trung Hoyos MD [facility] [place] [address] documented as of this encounter Procedures Procedure [...] MD HEMATOLOGY ORDERABLE S Performing Organization Address City/[facility]/ZIP Co de Phone Number DURGA FREDERICK [...] Barlow MD CHEMISTRY ORDERABLES Performing Organization Address [facility] de Phone Number [facility] * Amylase (04/02/2012 1:39 PM EDT) Amylase 32 28 - 100 unit/L CERNER MILLENNIUM Blood specimen (specimen) 04/02/2012 1:39 PM EDT 04/02/2012 1:48 PM EDT Narrative Resulting Agency Comment Spec In Lab L Karthik Barlow MD CHEMISTRY ORDERABLES Performing Organization Address [facility] Phone Number [facility] * High Sensitivity CRP (04/02/2012 1:39 [...] Barlow MD CHEMISTRY ORDERABLES Performing Organization Address [facility] Number [facility] * Sedimentation rate (04/02/2012 1:39 PM EDT) Sedimentation Rate Automated 12 0 - 15 mm/hr [facility] Blood specimen (specimen) 04/02/2012 1:39 PM EDT 04/02/2012 1:48 PM EDT Narrative Resulting Agency Comment Spec In Lab L Karthik Barlow MD HEMATOLOGY ORDERABLE S Performing Organization Address [facility] Number [facility] * (ABNORMAL) CMP w/fasting Glucose (04/02/2012 1:39 PM EDT) Glucose Fasting 158(H) 65 - 99 mg/dL [facility] Comment: ?Fasting* Glucose Interpretive Criteria Normal ?65-99 [...] of Diabetes Mellitus, Position Statement from the [place] [employer]. ??Diabetes Care, Volume 33, Supplement [...] Lab L Karthik Barlow MD CHEMISTRY ORDERABLES [facility] * (ABNORMAL) CBC (with Diff) (04/02/2012 1:39 [...] unspecified documented in this encounter Care Teams Cotton Buyer Relationship Specialty Start Date End Date More Naylor MD [address] [place] [address] PCP - General 10/01/11 02/13/21 documented as of this encounter
--- OUTSIDE RECORDS SUMMARY | 2024-07-20 13:39 | XMS_ITS | Encounter Summary ---
Author Organization [facility] Address [facility] [place] [address] Care Team Providers Care Safekeeping Clerk Name Role Phone Maximilian Fall MD Primary Care Provider [phone] Reason for Visit * Reason Onset Date Comments Medication Refill 11/03/2013 Encounter Details Date Type Department Care Team (Late st Contact Info) Description 11/03/2013 Ref[place] [address] Dion Barlow MD [facility] [place] [address] Social History Tobacco Use Types Packs/Day Years [...] with Dr Barlow and it should be [id number] take 2 tabs twice a day or 2GM documented in this encounter Plan of Treatment Upcoming Encounters Date Type Department Care Team (Late st Contact Info) Description 08/15/2024 9:00 AM EDT Office [place] [address] Dion Barlow MD [facility] [place] [address] 09/01/2024 9:40 AM EDT Office Visit Cardiology at [address] [place] [address] Franky Shaver MD [facility] [place] [address] 09/01/2024 11:20 AM EDT Office Visit Dermatology at [place] [address] [place] [address] Gómez Mercer MD [facility] DR [place] [address] 09/21/2024 2:45 PM EDT Office Visit [place] [address] Trung Hoyos MD [facility] [place] [address] documented as of this encounter Visit Diagnoses Not on filedocumented in this encounter Care Teams Safekeeping Clerk Relationship Specialty Start Date End Date Maximilian Fall MD [address] [place] [address] PCP - General 10/01/11 02/13/21 documented as of this encounter
--- OUTSIDE RECORDS SUMMARY | 2024-07-20 13:39 | XMS_ITS | Encounter Summary ---
Author Organization [facility] Address [facility] [place] [address] Care Team Providers Care Guest Attendant Name Role Phone More Naylor MD Primary Care Provider [phone] Reason for Visit * Reason Comments Follow-up Encounter Details Date Type Department Care Team (Late st Contact Info) Description 03/06/2014 8:30 AM EDT [place] [address] Dion Barlow MD [facility] [place] [address] Ulcerative colitis, with rectal bleeding (Primary Dx) [...] the sigmoid nl Repeat exam 11/27/11 ([facility] [...] or most commonly, upper respiratory infections; positive qanx-dlnoya-kmpucpqf DNA antibodies, and rarely a lupus-like syndrome; [...] CC: MORE NAYLOR MD [address] [place] [address] documented in this encounter Plan of Treatment Upcoming Encounters Date Type Department Care Team (Late st Contact Info) Description 08/15/2024 9:00 AM EDT Office [place] [address] Dion Barlow MD [facility] [place] [address] 09/01/2024 9:40 AM EDT Office Visit Cardiology at [address] [address] Franky Shaver MD [facility] [place] [address] 09/01/2024 11:20 AM EDT Office Visit Dermatology at [facility] [address] [place] [address] Gómez Mercer MD [facility] [place] [address] 09/21/2024 2:45 PM EDT Office Visit [place] [address] Trung Hoyos MD [facility] [place] [address] documented as of this encounter Procedures Procedure [...] Urine Dipstick Clear Clear CERNER MILLENNIUM Specific Kelliher Urine Automated 1.019 1.002 - 1.030 CERNER [...] L Karthik Barlow MD URINE ORDERABLES CERNER [facility]ity R&DENNIUM * Differential, Automated (03/06/2014 9:39 AM EDT) Neutrophil % 64.8 34.0 - 71.0 % [facility] MILLENNIUM Neutrophil Absolute 3.24 1.50 - 6.30 [...] Gran Absolute 0.01 0.00 - 0.05 x10(3)/mcL [facility] TIAGOENNIUM Blood specimen (specimen) 03/06/2014 9:39 AM EDT 03/06/2014 9:47 AM EDT L Karthik Barlow MD HEMATOLOGY ORDERABLE S [facility] * QuantiFERON-TB Gold (03/06/2014 9:39 AM EDT) Pathologist [facility] Quantiferon-TB Gold Negative Negative [facility] Comment: Nil (IU/mL)=0.03 TB Ag minus Nil [...] Lab L Karthik Barlow MD CHEMISTRY ORDERABLES [facility] * High Sensitivity CRP (03/06/2014 9:39 [...] Primary documented in this encounter Care Teams Guest Attendant Relationship Specialty Start Date End Date More Naylor MD [address] [place] [address] PCP - General 10/01/11 02/13/21 documented as of this encounter
--- OUTSIDE RECORDS SUMMARY | 2024-07-20 13:39 | XMS_ITS | Encounter Summary ---
Author Organization [facility] Address [facility] [place] [address] Care Team Providers Care Excel Vba Developer Name Role Phone Maximilian Fall MD Primary Care Provider [phone] Encounter Details Date Type Department Care Team (Latest Contact Info) Description 07/13/2014 1:25 PM EDT - 07/13/2014 4:30 PM EDT Hospital Encounter [place] [address] Dion Osullivan MD [facility] [place] [address] Discharge Disposition: Home Social History Tobacco Use [...] - 07/13/2014 4:14 PM EDT Please call [phone], before 5pm with problems, questions or concerns, after 5pm call the Hospital at [phone] and ask to speak to the Street Commissioner radiation control specialist and the nuclear unit operator will contactthat person for you. Discharge [...] through Care Everywhere. * COLONOSCOPY : POSTOP (GERMAN) documented in this encounter Medications at [...] Osullivan MD - 07/13/2014 3:57 PM EDT [facility] Operative Note Patient Name: Naya Rodriguez : [id number] MR#: [id number] Case Date: 07/13/2014 Surgeon: Surgeon(s) and Role: [...] 9:00 AM EDT Office Visit [place] [address] Dion Osullivan MD [facility] [place] [address] 09/01/2024 9:40 AM EDT Office Visit Cardiology at [address] [place] [address] Franky Shaver MD [facility] [place] [address] 09/01/2024 11:20 AM EDT Office Visit Dermatology at [facility] [address] [place] [address] Gómez Mercer MD [facility] [address] 09/21/2024 2:45 PM EDT Office Visit [facility] [place] [address] Trung Hoyos MD [facility] [place] [address] documented as of this encounter Procedures Procedure [...] (07/13/2014 3:58 PM EDT) Final Diagnosis ? [facility] ? Provider: ?? Dion OSULLIVAN ?Pt. Name: ?? NAYA RODRIGUEZ ? Acc #: ?[id number] ?Pt. ? Col Date: ?? 07/13/2014 ? [...] - Mucosal biopsies - R colon ? [facility] ? Provider: ?? Dion OSULLIVAN ?Pt. Name: ?? NAYA RODRIGUEZ ? Acc #: ?[id number] ?Pt. ? Col Date: ?? 07/13/2014 ? [...] Osullivan MD PATHOLOGY/CYTOLOGY O CEE DURGA [place] [address] * Specimen to Pathology (surgical or derm) (07/13/2014 3:58 PM EDT) AP Specimen 07/13/2014 3:58 PM EDT 07/13/2014 3:58 PM EDT Narrative JO-ANNGIOVANNI COLBERTIUM - 07/13/2014 3:58 PM EDT Specimen requisition ordered. ??Separate Pathology report to follow L Karthik Osullivan MD PATHOLOGY/CYTOLOGY O CEE Performing Organization Address [facility] Co de Phone Number DURGA FREDERICK * Specimen to Pathology (surgical or derm) (07/13/2014 3:58 PM EDT) AP Specimen 07/13/2014 3:58 PM EDT 07/13/2014 3:58 PM EDT Narrative DURGA COLBERTIUM - 07/13/2014 3:58 PM EDT Specimen requisition ordered. ??Separate Pathology report to follow L Karthik Osullivan MD PATHOLOGY/CYTOLOGY O CEE Performing Organization Address City/[facility]/ZIP Co de Phone Number DURGA FREDERICK * Specimen to Pathology (surgical or derm) (07/13/2014 3:58 PM EDT) AP Specimen 07/13/2014 3:58 PM EDT 07/13/2014 3:58 PM EDT Narrative DURGA COLBERTIUM - 07/13/2014 3:58 PM EDT Specimen requisition ordered. ??Separate Pathology report to follow L Karthik Osullivan MD PATHOLOGY/CYTOLOGY O RDMELISSA DURGA FREDERICK * COLONOSCOPY (07/13/2014 2:51 PM EDT) Pathologist [facility] COLONOSCOPY [facility] Endoscopy Patient Name: Naya Rodriguez ? Procedure Date: 07/13/2014 2:51 PM ? Date of : 1950 ? Age: 64 ? Order #: [id number] ? Procedure: ? Colonoscopy Indications: ? Follow-up of left-sided chronic ? ulcerative colitis Providers: ? Davina Osullivan MD, Emily Quinn, ? RN, Luna Connors, RONY, Cam Ghosh ? Doug, Scheduling Administrator Referring MD: ?Maximilian Fall MD Medicines: ? [...] Glucose, POC 167 60 - 199 mg/dL [facility] Comment: Supplemental ranges: <140 mg/dL before meals <180 mg/dL all other times of the day Blood specimen (specimen) 07/13/2014 1:59 PM EDT 07/13/2014 1:59 PM EDT L Karthik Osullivan MD POINT OF CARE TEST O RDERABLES [facility] documented in this encounter Visit Diagnoses Not [...] uncomfortable) documented in this encounter Care Teams Excel Vba Developer Relationship Specialty Start Date End Date Maximilian Fall MD [address] [place] [address] PCP - General 10/01/11 02/13/21 documented as of this encounter
--- OUTSIDE RECORDS SUMMARY | 2024-07-20 13:39 | XMS_ITS | Encounter Summary ---
Author Organization [facility] Address [facility] [place] [address] Care Team Providers Care Neurourologist Name Role Phone Maximilian Fall MD Primary Care Provider [phone] Encounter Details Date Type Department Care Team (Late st Contact Info) Description 03/02/2012 External Results [place] [address] Dion Barlow MD [facility] [place] [address] Social History Tobacco Use Types Packs/Day Years [...] 9:00 AM EDT Office Visit [place] [address] Dion Barlow MD [facility] [place] [address] 09/01/2024 9:40 AM EDT Office Visit Cardiology at [address] [place] [address] Franky Shaver MD [facility] [place] [address] 09/01/2024 11:20 AM EDT Office Visit Dermatology at [facility] [address] [place] [address] Gómez Mercer MD [facility] DR EDDIE [place] [address] 09/21/2024 2:45 PM EDT Office Visit Pain and Spine Center at [facility] [place] [phone] Trung Hoyos MD [facility] [place] [address] documented as of this encounter Procedures Procedure Name Priority Date/Time Associated Diagnosis Comments EXTERNAL LAB RESULTS Routine 03/02/2012 documented in this encounter Results * External Lab Results (03/02/2012) Blood specimen (specimen) 03/02/2012 L Karthik Barlow MD CHEMISTRY ORDERABLES documented in this encounter Visit Diagnoses Not on filedocumented in this encounter Care Teams Neurourologist Relationship Specialty Start Date End Date Maximilian Fall MD [facility] [address] [facility] [address] [place] [address] PCP - General 10/01/11 02/13/21 documented as of this encounter
--- OUTSIDE RECORDS SUMMARY | 2024-07-20 13:39 | XMS_ITS | Encounter Summary ---
Author Organization [facility] Address [facility] [place] [address] Care Team Providers Care Medical Safety Director Name Role Phone Maximilian Fall MD Primary Care Provider [phone] Encounter Details Date Type Department Care Team (Late st Contact Info) Description 07/13/2014 2:30 PM EDT - 07/13/2014 3:30 PM EDT Surgery [place] [address] Dion Osullivan MD [facility] [place] [address] COLONOSCOPY, DIAGNOSTIC (WRVU 3.26) Social History Tobacco [...] - 07/13/2014 4:14 PM EDT Please call [phone], before 5pm with problems, questions or concerns, after 5pm call the Hospital at [phone] and ask to speak to the Aircraft Structural Repair Mechanic terminal operations supervisor and the cylinder machine operator pulp drier will contactthat person for you. Discharge instructions [...] Osullivan MD - 07/13/2014 3:57 PM EDT [facility] Operative Note Patient Name: Naya Rodriguez : [id number] MR#: [id number] Case Date: 07/13/2014 Surgeon: Surgeon(s) and Role: [...] 9:00 AM EDT Office [place] [address] Dion Osullivan MD [facility] [place] [address] 09/01/2024 9:40 AM EDT Office Visit Cardiology at [address] [place] [address] Franky Shaver MD [facility] [place] [address] 09/01/2024 11:20 AM EDT Office Visit Dermatology at [facility] [address] [place] [address] Gómez Mercer MD [facility] [place] [address] 09/21/2024 2:45 PM EDT Office Visit Pain [place] [address] Trung Hoyos MD [facility] [place] [place] [address] documented as of this encounter Procedures Procedure [...] (07/13/2014 3:58 PM EDT) Final Diagnosis ? [facility] ? Provider: ?? Dion OSULLIVAN ?Pt. Name: ?? NAYA RODRIGUEZ ? Acc #: ?[id number] ?Pt. ? Col Date: ?? 07/13/2014 ? [...] - Mucosal biopsies - R colon ? [facility] ? Provider: ?? Dion OSULLIVAN ?Pt. Name: ?? NAYA RODRIGUEZ ? Acc #: ?[id number] ?Pt. ? Col Date: ?? 07/13/2014 ? [...] PATHOLOGY/CYTOLOGY O RDMELISSA Performing Organization Address City/[facility]/ZIP Co de Phone Number [place]GA [place] [address] * Specimen to Pathology (surgical or derm) (07/13/2014 3:58 PM EDT) AP Specimen 07/13/2014 3:58 PM EDT 07/13/2014 3:58 PM EDT Narrative JO-ANNGIOVANNI COLBERTIUM - 07/13/2014 3:58 PM EDT Specimen requisition ordered. ??Separate Pathology report to follow L Karthik Osullivan MD PATHOLOGY/CYTOLOGY O RDMELISSA Performing Organization Address [facility] Co de Phone Number DURGA FREDERICK * Specimen to Pathology (surgical or derm) (07/13/2014 3:58 PM EDT) AP Specimen 07/13/2014 3:58 PM EDT 07/13/2014 3:58 PM EDT Narrative JO-ANNGIOVANNI COLBERTIUM - 07/13/2014 3:58 PM EDT Specimen requisition ordered. ??Separate Pathology report to follow L Karthik Osullivan MD PATHOLOGY/CYTOLOGY O CEE Performing Organization Address [facility] Co de Phone Number DURGA FREDERICK * Specimen to Pathology (surgical or derm) (07/13/2014 3:58 PM EDT) AP Specimen 07/13/2014 3:58 PM EDT 07/13/2014 3:58 PM EDT Narrative DURGA COLBERTIUM - 07/13/2014 3:58 PM EDT Specimen requisition ordered. ??Separate Pathology report to follow L Karthik Osullivan MD PATHOLOGY/CYTOLOGY O RDERAOMAR Performing Organization Address City/[facility] Co de Phone Number [place] FR[place] * COLONOSCOPY (07/13/2014 2:51 PM EDT) COLONOSCOPY [facility] Endoscopy Patient Name: Naya Rodriguez ? Procedure Date: 07/13/2014 2:51 PM ? Date of : 1950 ? Age: 64 ? Order #: [id number] ? Procedure: ? Colonoscopy Indications: ? Follow-up of left-sided chronic ? ulcerative colitis Providers: ? Davina Osullivan MD, Emily Quinn, ? RN, Luna Connors RN, Cam Ashley. ? Doug, Breeding Technician Referring MD: ?Maximilian Fall MD Medicines: [...] Glucose, POC 167 60 - 199 mg/dL [facility] Comment: Supplemental ranges: <140 mg/dL before meals <180 mg/dL all other times of the day Blood specimen (specimen) 07/13/2014 1:59 PM EDT 07/13/2014 1:59 PM EDT L Karthik Osullivan MD POINT OF CARE TEST O RDERABLES Performing Organization Address City/State/[facility] [place] Phone Number [facility] documented in this encounter Visit Diagnoses [...] uncomfortable) documented in this encounter Care Teams Medical Safety Director Relationship Specialty Start Date End Date Maximilian Fall MD [address] [place] [address] PCP - General 10/01/11 02/13/21 documented as of this encounter
--- OUTSIDE RECORDS SUMMARY | 2024-07-20 13:39 | XMS_ITS | Encounter Summary ---
[place] [address] Care Team Providers Care Self Pay Specialist Name Role Phone Maximilian Fall MD Primary Care Provider [phone] Encounter Details Date Type Department Care Team (Late st Contact Info) Description 09/30/2012 Telephone [place] [address] Lilliana Reece RN Social History Tobacco Use [...] louis ----- Message ----- From: Lab In [facility] Chong Sent: 09/20/2012 11:34 AM To: Marcelle [...] 9:00 AM EDT Office [place] [address] Dion Barlow MD [facility] [place] [address] 09/01/2024 9:40 AM EDT Office Visit Cardiology at [address] [place] [address] Franky Shaver MD [facility] [place] [address] 09/01/2024 11:20 AM EDT Office Visit Dermatology at [facility] [address] [place] [address] Gómez Mercer MD [facility] [place] [address] 09/21/2024 2:45 PM EDT Office Visit [place] [address] Trung Hoyos MD [facility] [place] [address] documented as of this encounter Visit Diagnoses Not on filedocumented in this encounter Care Teams Self Pay Specialist Relationship Specialty Start Date End Date Maximilian Fall MD [address] [place] [address] PCP - General 10/01/11 02/13/21 documented as of this encounter
--- OUTSIDE RECORDS SUMMARY | 2024-07-20 13:39 | XMS_ITS | Encounter Summary ---
Author Organization [facility] Address [facility] [place] [address] Care Team Providers Care Forensic Psychologist Name Role Phone More Naylor MD Primary Care Provider [phone] Reason for Visit * Reason Comments Ulcerative Colitis Encounter Details Date Type Department Care Team (Late st Contact Info) Description 04/21/2012 1:30 PM EDT [place] [address] Dion Barlow MD [facility] [place] [address] Ulcerative colitis (Primary Dx) Discharge Disposition: Home [...] ??? Ulcerative colitis Colonoscopy 04/08/10 (Dr. Gomes [facility]) [...] has left-sided ulcerative colitis with persistently active flqv-bc-wisdhqrh symptoms andmildly active disease endoscopically. He failed [...] CC: MORE NAYLOR MD [address] [facility] [address] documented in this encounter Plan of Treatment Upcoming Encounters Date Type Department Care Team (Late st Contact Info) Description 08/15/2024 9:00 AM EDT Office [place] [address] Dion Barlow MD [facility] [place] [address] 09/01/2024 9:40 AM EDT Office Visit Cardiology at [address] [place] [address] Franky Shaver MD [facility] [place] [address] 09/01/2024 11:20 AM EDT Office Visit Dermatology at [facility] [address] [place] [address] Gómez Mercer MD [facility] [place] [address] 09/21/2024 2:45 PM EDT Office Visit [place] [address] Trung Hoyos MD [facility] [place] [address] documented as of this encounter Visit Diagnoses Diagnosis Ulcerative colitis- Primary Ulcerative colitis, unspecified documented in this encounter Care Teams Forensic Psychologist Relationship Specialty Start Date End Date More Naylor MD [address] [facility] 1 [place] [address] PCP - General 10/01/11 02/13/21 documented as of this encounter
--- OUTSIDE RECORDS SUMMARY | 2024-07-20 13:40 | XMS_ITS | Encounter Summary ---
Author Organization [facility] Address [facility] [place] [address] Care Team Providers Care Nail Technician Teacher Name Role Phone Maximilian Fall MD Primary Care Provider [phone] Reason for Visit * Reason Onset Date Comments Research 02/20/2012 discuss [facility] Encounter Details Date Type Department Care Team (Late st Contact Info) Description 02/20/2012 Telephone [place] [address] Mica Gore, JAZMINE [facility] [place] [address] Research (discuss [facility]) Social History Tobacco [...] 9:00 AM EDT Office Visit [place] [address] Dion Barlow MD [facility] [place] [address] 09/01/2024 9:40 AM EDT Office Visit Cardiology at [address] [address] Franky Shaver MD [facility] [place] [address] 09/01/2024 11:20 AM EDT Office Visit Dermatology at [facility] [address] [place] [address] Gómez Mercer MD [facility] DR [place] [address] 09/21/2024 2:45 PM EDT Office Visit Pain and [place] [address] Trung Hoyos MD [facility] [place] [address] documented as of this encounter Visit Diagnoses Not on filedocumented in this encounter Care Teams Nail Technician Teacher Relationship Specialty Start Date End Date Maximilian Fall MD [address] [place] [address] PCP - General 10/01/11 02/13/21 documented as of this encounter
--- OUTSIDE RECORDS SUMMARY | 2024-07-20 13:40 | XMS_ITS | Encounter Summary ---
Author Organization [facility] Address [facility] [place] [address] Care Team Providers Care Shower Screen Installer Name Role Phone More Naylor MD Primary Care Provider [phone] Reason for Visit * Reason Comments Follow-up Encounter Details Date Type Department Care Team (Late st Contact Info) Description 11/05/2011 2:00 PM EST Follow-[place] [address] Dion Barlow MD [facility] [place] [address] Ulcerative colitis (Primary Dx) Discharge Disposition: Home [...] the preparation at this time. Please call [phone] to let us know that you cannot [...] time. ?? Please plan to be at [facility] for about 3 hours; please see your letter for estimated procedure and discharge times. If you have read the information thoroughly, and still have questions about what you have read, please call [phone] between the hours of 7:00am - 7:00pm, Thursday - Thursday and a nurse will assist you. If you have an urgent matter after hours, please call [phone], and ask to speak to the Gastroenterology Fellow compensation analyst. If you need to reschedule your colonoscopy, please call [phone]. We do have a high volume of [...] information packet from Gastroenterology and Hepatology and [facility]: ?? Please read ALL information in your information packet. ?? If you have read the information thoroughly, and still have questions about what you have read, please call [phone] between the hours of 7:00am - 7:00pm Thursday - Thursday, and a nurse will assist you. ?? If you have an urgent matter after hours, please call [phone], and ask to speak to the Gastroenterology Fellow compensation analyst. ?? If you need to reschedule your colonoscopy, please call [phone]. We do have a high volume of patients for this exam, so please give a least 72 hours notice for routine rescheduling. MEDICATION INFORMATION ?? Please call your prescribing physician to see if it is safe for you to lessen the dose or stop your medication prior to this procedure. Please note: If you cannot safely stop these medications, please call [phone]. The prescribing physician can give you instructions [...] you arrive (2 hours before your procedure) [email or web address] () ?? You will need to arrive ONE HOUR before your procedure time, to help you prepare for your procedure; please see your letter for exact arrival time. ?? Please plan to be at [facility] for about 3 hours; please see [...] forms of transportation like cabs or buses. [email or web address] 1 FREQUENTLY ASKED QUESTIONS ABOUT YOUR COLONOSCOPY [...] one do I follow? A: Please follow [facility] Gastroenterology instructions, NOT the instructions from the [...] you continue to have problems, please call [phone] during office hours at 7am - 5pm.After hours please call [phone], and ask for the Gastroenterology Fellow compensation analyst. Q: Do I REALLY need to drink [...] have a deep chest cough, please call [phone] to see if you need to reschedule your appointment. Q: I am having my menstrual period. Should I reschedule my colonoscopy appointment? A: No. Your menstrual period will not interfere with your physician's ability to complete your procedure. [facility] FAQ 07/12/2009 Brian Rodriguez [address] [facility] [address] Thank you for choosing [facility] for your medical needs. You are scheduledfor a colonoscopy on at the Endoscopy Center at Speech Pathologist 4T (Level 4). Below you will find [...] about what you have read, please call [phone] between the hours of 7:00am - 7:00pm Thursday - Thursday, and ask to speak to the Gastroenterology Fellow compensation analyst. If you need to reschedule your procedure please call: [phone]. Thank you for choosing [facility]. Sincerely, The Gastroenterology and Hepatology Team and the Endoscopy Center at [facility] documented in this encounter Progress Notes * Dion Barlow MD - 11/05/2011 2:31 PM EST Patient Active Problem List Diagnoses ??? Ulcerative colitis [556.9J] Colonoscopy 04/08/10 ([facility] [...] 4. Arrange for colonoscopy. Davina Barlow MD Waiterapprentice machinist outside Section of Gastroenterology [place] [address] CC: MORE NAYLOR MD [address] [place] [address] documented in this encounter Plan of Treatment Upcoming Encounters Date Type Department Care Team (Late st Contact Info) Description 08/15/2024 9:00 AM EDT Office [place] [address] Dion Barlow MD [facility] [place] [address] 09/01/2024 9:40 AM EDT Office Visit Cardiology at [address] [address] Franky Shaver MD [facility] [address] 09/01/2024 11:20 AM EDT Office Visit Dermatology at [facility] [address] [place] [address] Gómez Mercer MD [facility] DR EDD[place] [address] 09/21/2024 2:45 PM EDT Office Visit Pain and Spine Center at [facility] [place] [address] Trung Hoyos MD [facility] [place] [address] documented as of this encounter Procedures Procedure [...] MD HEMATOLOGY ORDERABLE S Performing Organization Address [facility] Co de Phone Number [facility] * TPMT Enzyme (11/05/2011 3:15 PM EST) Pathologist [facility] TPMT Enzyme See Note [facility] Comment: Normal Activity Please see scanned report in Chart Review under the Non-DH Laboratory Heading. Test performed by [employer], [address] [place] [address] Blood specimen (specimen) 11/05/2011 3:15 PM EST 11/05/2011 3:45 PM EST Dion Barlow MD CHEMISTRY ORDERABLES Performing Organization Address [facility] Co de Phone Number [facility] * High Sensitivity CRP (11/05/2011 3:15 PM EST) C-Reactive Protein High Sensitivity 2.3 mg/L [facility] Comment: Interpretations: 1) For cardiac risk assessment, [...] Barlow MD CHEMISTRY ORDERABLES Performing Organization Address [facility] de Phone Number [email or web address] * Sedimentation rate (11/05/2011 3:15 PM EST) [facility] Signature Sedimentation Rate Automated 13 0 - 15 mm/hr DURGA FREDERICK Blood specimen (specimen) 11/05/2011 3:15 PM EST 11/05/2011 3:22 PM EST L Karthik Barlow MD HEMATOLOGY ORDERABLE S Performing Organization Address [facility] de Phone Number CERGIOVANNI MILLENNIUM * CMP w/fasting Glucose (11/05/2011 3:15 PM EST) [facility] Glucose Fasting 97 65 - 99 [...] of Diabetes Mellitus, Position Statement from the [place] [employer]. ??Diabetes Care, Volume 33, Supplement [...] MD HEMATOLOGY ORDERABLE S Performing Organization Address City/State/[facility] Co de Phone Number DURGA FREDERICK documented in this encounter Visit Diagnoses Diagnosis Ulcerative colitis- Primary Ulcerative colitis, unspecified documented in this encounter Care Teams Shower Screen Installer Relationship Specialty Start Date End Date More Naylor MD [address] [place] [address] PCP - General 10/01/11 02/13/21 documented as of this encounter
--- OUTSIDE RECORDS SUMMARY | 2024-07-20 13:40 | XMS_ITS | Encounter Summary ---
Author Organization [facility] Address [facility] [place] [address] Care Team Providers Care Emblem Drawer In Name Role Phone Maximilian Fall MD Primary Care Provider [phone] Encounter Details Date Type Department Care Team (Late st Contact Info) Description 03/02/2012 Orders [place] [address] Dion Barlow MD [facility] [place] [address] Exam for clinical research (Primary Dx) Social [...] 9:00 AM EDT Office [place] [address] Dion Barlow MD [facility] [place] [address] 09/01/2024 9:40 AM EDT Office Visit Cardiology at [address] [place] [address] Franky Shaver MD [facility] [place] [address] 09/01/2024 11:20 AM EDT Office Visit Dermatology at [facility] [address] [place] [address] Gómez Mercer MD [facility] DR [place] [address] 09/21/2024 2:45 PM EDT Office Visit Pain and Spine Center at [facility] [place] [address] Trung Hoyos MD [facility] [place] [address] documented as of this encounter Results * [...] trial documented in this encounter Care Teams Emblem Drawer In Relationship Specialty Start Date End Date Maximilian Fall MD [address] [place] [address] PCP - General 10/01/11 02/13/21 documented as of this encounter
--- OUTSIDE RECORDS SUMMARY | 2024-07-20 13:40 | XMS_ITS | Encounter Summary ---
Author Organization [facility] Address [facility] [place] [address] Care Team Providers Care General Manager Farm Name Role Phone Maximilian Fall MD Primary Care Provider Encounter Details Date Type Department Care Team (Latest Contact Info) Description 03/02/2012 9:31 AM EDT - 03/02/2012 11:59 PM EDT Hospital Encounter XRay at [address] [place] [address] CLINIC, Dion Edmonds MD [facility] [place] [address] Exam for clinical research Discharge Disposition: Home [...] 9:00 AM EDT Office [place] [address] Dion Barlow MD [facility] [place] [address] 09/01/2024 9:40 AM EDT Office Visit Cardiology at [address] [phone] Franky Shaver MD [facility] [place] [address] 09/01/2024 11:20 AM EDT Office Visit Dermatology at [facility] [address] [place] [address] Gómez Mercer MD [facility] DR EDD[place] [address] 09/21/2024 2:45 PM EDT Office Visit [place] [address] Trung Hoyos MD [facility] [place] [address] documented as of this encounter Procedures Procedure [...] trial documented in this encounter Care Teams General Manager Farm Relationship Specialty Start Date End Date Maximilian Fall MD [address] [place] [address] PCP - General 10/01/11 02/13/21 documented as of this encounter
--- OUTSIDE RECORDS SUMMARY | 2024-07-20 13:40 | XMS_ITS | Encounter Summary ---
Author Organization [facility] Address [facility] [place] [address] Care Team Providers Care Oil Field Roustabout Name Role Phone Maximilian Fall MD Primary Care Provider [phone] Encounter Details Date Type Department Care Team (Latest Contact Info) Description 11/27/2011 11:49 AM EST - 11/27/2011 2:45 PM EST Hospital [place] [address] Dion Osullivan MD [facility] [place] [address] Discharge Disposition: Home Social History Tobacco Use [...] - 11/27/2011 2:37 PM EST Please call [phone], before 5pm with problems, questions or concerns, after 5pm call the Hospital at [phone] and ask to speak to the [place] airport operations duty manager and the proof operator will contactthat person for you. Discharge instructions reviewed with patient who expresses understanding. * Patient Instructions* Dion Osullivan MD - 11/27/2011 1:07 PM EST Please see Recommendations in the Provation procedure report which is documented in the procedural note in E-DH. * Attachments The following attachments cannot be sent through Care Everywhere. * COLONOSCOPY: WHAT TO EXPECT AT HOME (WELSH) documented in this encounter Medications at Time [...] Osullivan MD - 11/27/2011 1:06 PM EST [facility] [place] Patient Name: Naya Rodriguez : [id number] MR#: [id number] Case Date: 11/27/2011 Surgeon: Surgeon(s) and Role: * Dion OSULLIVAN MD - Primary Please see the Provation procedure report in the Procedures tab in eDH. documented in this encounter Plan of Treatment Upcoming Encounters Date Type Department Care Team (Late st Contact Info) Description 08/15/2024 9:00 AM EDT Office [place] [phone] Dion Osullivan MD [facility] [place] [address] 09/01/2024 9:40 AM EDT Office Visit Cardiology at [address] [address] Franky Shaver MD [facility] [place] [address] 09/01/2024 11:20 AM EDT Office Visit Dermatology at [address] [phone] Gómez Mercer MD [facility] [place] [address] 09/21/2024 2:45 PM EDT Office Visit [place] [phone] Trung Hoyos MD [facility] [place] [address] documented as of this encounter Procedures Procedure [...] Surgical Pathology Report ? [facility] ? Provider: ?? Dino OSULLIVAN ?Pt. Name: ?? SHANTNAYA ? Acc #: ?[id number] ?Pt. ? Col Date: ?? 11/27/2011 ?/Sex: [...] polyp, the larger ? [facility] ? Provider: ?? Dion OSULLIVAN ?Pt. Name: ?? NAYA RODRIGUEZ ? Acc #: ?[id number] ?Pt. ? Col Date: ?? 11/27/2011 ?/Sex: [...] MD PATHOLOGY/CYTOLOGY O CEE Performing Organization Address City/[facility] Co de Phone Number [facility] * Specimen to Pathology (surgical or derm) (11/27/2011 1:53 PM EST) AP Specimen 11/27/2011 1:53 PM EST 11/27/2011 1:53 PM EST Narrative [facility] - 11/27/2011 1:53 PM EST Specimen requisition ordered. ??Separate Pathology report to follow L Karthik Osullivan MD PATHOLOGY/CYTOLOGY O CEE Performing Organization Address City/[facility] Co de Phone Number [facility] * Specimen to Pathology (surgical or derm) (11/27/2011 1:53 PM EST) AP Specimen 11/27/2011 1:53 PM EST 11/27/2011 1:53 PM EST Narrative [facility] - 11/27/2011 1:53 PM EST Specimen requisition ordered. ??Separate Pathology report to follow L Karthik Osullivan MD PATHOLOGY/CYTOLOGY O CEE Performing Organization Address City/[facility] Co de Phone Number [facility] * COLONOSCOPY (11/27/2011 1:01 PM EST) COLONOSCOPY [facility] Endoscopy Patient Name: Naya Rodriguez ? Procedure Date: 11/27/2011 01:01:31 PM ? Date of : 1950 ? Age: 61 ? Procedure: ? Colonoscopy Indications: ? Follow-up of left-sided chronic ? ulcerative colitis Providers: ? L Karthik Osullivan MD, Tyron Cee, ? RN, Qing López, Manufacturing Engineering Manager Referring MD: ?Maximilian Fall MD Medicines: ? [...] time) documented in this encounter Care Teams Oil Field Roustabout Relationship Specialty Start Date End Date Maximilian Fall MD [address] [place] [address] PCP - General 10/01/11 02/13/21 documented as of this encounter
--- OUTSIDE RECORDS SUMMARY | 2024-07-20 13:40 | XMS_ITS | Encounter Summary ---
Author Organization [facility] Address [facility] [place] [address] Care Team Providers Care Stretching Press Operator Name Role Phone More Naylor MD Primary Care Provider [phone] Reason for Visit * Reason Comments GI Problem Encounter Details Date Type Department Care Team (Late st Contact Info) Description 10/01/2011 9:30 AM EST Office [place] [address] Dion Barlow MD [facility] [place] [address] Ulcerative colitis (Primary Dx) Discharge Disposition: Home [...] 1. Stool studies to be done at [facility] - will give instructions and a [...] ??? Ulcerative colitis Colonoscopy 04/08[facility]10 ([facility] [...] three kids. 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 He quit smoking in 1991 after 30 [...] adenopathy and no thyromegaly. HEENT: PERRL, EOMI, FIELD SALES AGENT and OP clear without ulceration or lesions. [...] 1. Stool studies to be done at [facility] - will give instructions, an order, [...] questions 50 minutes of this 60 minute [id number] encounter were spent counseling the patient in the issuesoutlined above. Davina Barlow MD Ingot Weigherhot box operator Section of Gastroenterology [place] [address] [email or web address] CC: MORE NAYLOR MD [address] [facility] [address] documented in this encounter Plan of Treatment Upcoming Encounters Date Type Department Care Team (Late st Contact Info) Description 08/15/2024 9:00 AM EDT Office [place] [address] Dion Barlow MD [facility] [place] [address] 09/01/2024 9:40 AM EDT Office Visit Cardiology at [address] [phone] Franky Shaver MD [facility] [place] [address] 09/01/2024 11:20 AM EDT Office Visit Dermatology at [address] [place] [address] Gómez Mercer MD [facility] DR EDD[place] [address] 09/21/2024 2:45 PM EDT Office Visit Pain and Spine Center at [facility] [place] [address] Trung Hoyos MD [facility] [place] [address] documented as of this encounter Visit Diagnoses Diagnosis Ulcerative colitis- Primary Ulcerative colitis, unspecified documented in this encounter Care Teams Stretching Press Operator Relationship Specialty Start Date End Date More Naylor MD [address] [place] [address] PCP - General 10/01/11 02/13/21 documented as of this encounter
--- OUTSIDE RECORDS SUMMARY | 2024-07-20 13:40 | XMS_ITS | Encounter Summary ---
Author Organization [facility] Address [facility] [place] [address] Care Team Providers Care Timers Inspector Name Role Phone Maximilian Fall MD Primary Care Provider [phone] Encounter Details Date Type Department Care Team (Late st Contact Info) Description 11/27/2011 1:00 PM EST - 11/27/2011 1:45 PM EST Surgery [place] [address] Dion Osullivan MD [facility] [place] [address] COLONOSCOPY, DIAGNOSTIC (WRVU 3.26) Social History Tobacco [...] - 11/27/2011 2:37 PM EST Please call [phone], before 5pm with problems, questions or concerns, after 5pm call the Hospital at [phone] and ask to speak to the Seasonal Recruiter termite control representative and the gas derrick operator will contactthat person for you. Discharge instructions reviewed with patient who expresses understanding. * Patient Instructions* Dion Osullivan MD - 11/27/2011 1:07 PM EST Please see Recommendations in the Provation procedure report which is documented in the procedural note in E-DH. * Attachments The following attachments cannot be sent through Care Everywhere. * COLONOSCOPY: WHAT TO EXPECT AT HOME (MAORI) documented in this encounter Medications at [...] Osullivan MD - 11/27/2011 1:06 PM EST [facility] Operative Note Patient Name: Naya Rodriguez : [id number] MR#: [id number] Case Date: 11/27/2011 Surgeon: Surgeon(s) and Role: * Dion OSULLIVAN MD - Primary Please see the Provation procedure report in the Procedures tab in eDH. documented in this encounter Plan of Treatment Upcoming Encounters Date Type Department Care Team (Late st Contact Info) Description 08/15/2024 9:00 AM EDT Office [place] [phone] Dion Osullivan MD [facility] [place] [address] 09/01/2024 9:40 AM EDT Office Visit Cardiology at [address] [address] Franky Shaver MD [facility] [place] [address] 09/01/2024 11:20 AM EDT Office Visit Dermatology at [address] [address] Gómez Mercer MD [facility] DR EDDIE [place] [address] 09/21/2024 2:45 PM EDT Office Visit [place] [address] Trung Hoyos MD [facility] [place] [address] documented as of this encounter Procedures Procedure [...] 4:38 PM EST) Surgical Pathology Report ? [facility] ? Provider: ?? Dion OSULLIVAN ?Pt. Name: ?? NAYA RODRIGUEZ ? Acc #: ?[id number] ?Pt. ? Col Date: ?? 11/27/2011 ?/Sex: [...] Stephen, rubbery mucosal polyp, the larger ? [facility] ? Provider: ?? Dion OSULLIVAN ?Pt. Name: ?? NAYA RODRIGUEZ ? Acc #: ?[id number] ?Pt. ? Col Date: ?? 11/27/2011 ?/Sex: [...] MD PATHOLOGY/CYTOLOGY O CEE Performing Organization Address [facility] Co de Phone Number [facility] * Specimen to Pathology (surgical or derm) (11/27/2011 1:53 PM EST) AP Specimen 11/27/2011 1:53 PM EST 11/27/2011 1:53 PM EST Narrative [facility] - 11/27/2011 1:53 PM EST Specimen requisition ordered. ??Separate Pathology report to follow L Karthik Osullivan MD PATHOLOGY/CYTOLOGY O CEE Performing Organization Address City/[facility] Co de Phone Number [facility] * Specimen to Pathology (surgical or derm) (11/27/2011 1:53 PM EST) AP Specimen 11/27/2011 1:53 PM EST 11/27/2011 1:53 PM EST Narrative [facility] - 11/27/2011 1:53 PM EST Specimen requisition ordered. ??Separate Pathology report to follow L Karthik Osullivan MD PATHOLOGY/CYTOLOGY O CEE Performing Organization Address [facility] Co de Phone Number [facility] * COLONOSCOPY (11/27/2011 1:01 PM EST) COLONOSCOPY [facility] Endoscopy Patient Name: Naya Rodriguez ? Procedure Date: 11/27/2011 01:01:31 PM ? Date of : 1950 ? Age: 61 ? Procedure: ? Colonoscopy Indications: ? Follow-up of left-sided chronic ? ulcerative colitis Providers: ? L Karthik Osullivan MD, Tyron Cee, ? RN, Qing López, Disability Specialist Referring MD: ?Maximilian Fall MD Medicines: [...] time) documented in this encounter Care Teams Timers Inspector Relationship Specialty Start Date End Date Maximilian Fall MD [address] [place] [address] PCP - General 10/01/11 02/13/21 documented as of this encounter
--- OUTSIDE RECORDS SUMMARY | 2024-07-20 13:40 | XMS_ITS | Encounter Summary ---
Author Organization [facility] Address [facility] [place] [address] Care Team Providers Care Waxer Name Role Phone More Naylor MD Primary Care Provider [phone] Reason for Visit * Reason Comments Follow-up Encounter Details Date Type Department Care Team (Late st Contact Info) Description 01/28/2012 3:00 PM EST [place] [address] Dion Barlow MD [facility] [place] [address] Ulcerative colitis (Primary Dx) Discharge Disposition: Home [...] ??? Ulcerative colitis Colonoscopy 04/08/10 (Dr. Gomes [facility] [...] first time since his colonoscopy in early [facility]. At that time, he had a patch [...] sooner of symptoms worsen. Davina Barlow MD Orderlyelectric motor repair supervisor Section of Gastroenterology [place] [address] CC: MORE NAYLOR MD [address] [facility] [address] documented in this encounter Plan of Treatment Upcoming Encounters Date Type Department Care Team (Late st Contact Info) Description 08/15/2024 9:00 AM EDT Office [place] [address] Dion Barlow MD [facility] [place] [address] 09/01/2024 9:40 AM EDT Office Visit Cardiology at [address] [phone] Franky Shaver MD [facility] [place] [address] 09/01/2024 11:20 AM EDT Office Visit Dermatology at [address] [phone] Gómez Mercer MD [facility] [place] [address] 09/21/2024 2:45 PM EDT Office Visit [place] [address] Trung Hoyos MD [facility] [place] [address] documented as of this encounter Visit Diagnoses Diagnosis Ulcerative colitis- Primary Ulcerative colitis, unspecified documented in this encounter Care Teams Waxer Relationship Specialty Start Date End Date More Naylor MD [address] [place] [address] PCP - General 10/01/11 02/13/21 documented as of this encounter
--- OUTSIDE RECORDS SUMMARY | 2024-07-20 13:40 | XMS_ITS | Encounter Summary ---
Author Organization [facility] Address [facility] [place] [address] Care Team Providers Care Dry Room Attendant Name Role Phone Maximilian Fall MD Primary Care Provider [phone] Reason for Visit * Reason Comments Research Merit UC screening v isit Encounter Details Date Type Department Care Team (Late st Contact Info) Description 03/02/2012 7:30 AM EDT Office Visit [place] [address] Mica Gore, [facility] [place] [address] Ulcerative colitis (Primary Dx) Social History Tobacco [...] AM EDT Office Visit [place] [address] Dion Barlow MD [facility] [place] [address] 09/01/2024 9:40 AM EDT Office Visit Cardiology at [address] [place] [address] Franky Shaver MD [facility] [place] [address] 09/01/2024 11:20 AM EDT Office Visit Dermatology at [facility] [address] [place] [address] Gómez Mercer MD [facility] DR [place] [address] 09/21/2024 2:45 PM EDT Office Visit [facility] [place] [address] Trung Hoyos MD [facility] [place] [address] documented as of this encounter Visit Diagnoses Diagnosis Ulcerative colitis- Primary Ulcerative colitis, unspecified documented in this encounter Care Teams Dry Room Attendant Relationship Specialty Start Date End Date Maximilian Fall MD [address] [place] [address] PCP - General 10/01/11 02/13/21 documented as of this encounter
--- OUTSIDE RECORDS SUMMARY | 2024-07-22 13:03 | XMS_ITS | Encounter Summary ---
Author Organization [facility] Address [address] [place] [address] Care Team Providers Care Rehabilitation Coordinator Name Role Phone Maximilian Fall MD Primary Care Provider [phone] Encounter Details Date Type Department Care Team (Late st Contact Info) Description 02/17/2023 Lab Requisition [facility] Pathology & Laboratory Medicine - [address] [address] Outr Resulting Lab, Provider Social History Tobacco [...] Salmonella PCR Negative Negative 02/18/2023 11:17 EDT [facility] Shigella/Enteroin vasive E. coli Negative Negative 02/18/2023 11:17 EDT [facility] HN LAB CAMPYLOBACTER PCR Negative Negative 02/18/2023 11:17 EDT [facility] Shiga Toxin PCR Negative Negative 03/29/202 3 11:17 EDT [facility] Feces SPECIMEN FROM RECTUM / Unknown 02/17/2023 7:00 EDT 02/17/2023 22:14 EDT Provider Outr Resulting Lab MICROBIOLOGY - GENERAL ORDERABLES Performing Organization Address City/State/[facility] Co de Phone Number [facility] [address] [place] [address] documented in this encounter Visit Diagnoses Not on filedocumented in this encounter Care Teams Rehabilitation Coordinator Relationship Specialty Start Date End Date Maximilian Fall MD PCP - General 03/18/16 documented as of this encounter
--- OUTSIDE RECORDS SUMMARY | 2024-07-22 13:03 | XMS_ITS | Encounter Summary ---
Author Organization [facility] Address [address] [place] [address] Care Team Providers Care Combatant Diver Officer Name Role Phone Maximilian Fall MD Primary Care Provider [phone] Encounter Details Date Type Department Care Team (Latest Contact Info) Description 12/31/2017 9:43 EST - 12/31/2017 23:59 EST Hospital Encounter [address] [address] Unknown, Provider, Discharge Disposition: Home or Self [...] on filedocumented in this encounter Care Teams Combatant Diver Officer Relationship Specialty Start Date End Date Maximilian Fall MD PCP - General 03/18/16 documented as of this encounter
--- OUTSIDE RECORDS SUMMARY | 2024-07-22 13:03 | XMS_ITS | Encounter Summary ---
Author Organization [facility] Address [address] [place] [address] Care Team Providers Care Assistant Branch Manager Name Role Phone Maximilian Fall MD Primary Care Provider [phone] Encounter Details Date Type Department Care Team (Latest Contact Info) Description 09/04/2016 8:11 EDT - 09/04/2016 23:59 EDT Hospital Encounter [address] [address] Unknown, Provider, Discharge Disposition: Home or Self [...] on filedocumented in this encounter Care Teams Assistant Branch Manager Relationship Specialty Start Date End Date Maximilian Fall MD PCP - General 03/18/16 documented as of this encounter
--- OUTSIDE RECORDS SUMMARY | 2024-07-22 13:03 | XMS_ITS | Encounter Summary ---
Author Organization [facility] Address [address] [place] [address] Care Team Providers Care Orthotic Technician Name Role Phone More Naylor MD Primary Care Provider [phone] Encounter Details Date Type Department Care Team (Late st Contact Info) Description 10/30/2016 Results Only [facility] [phone] Tamara Reza, [address] [place] [address] Social History Tobacco Use Types Packs/Day Years [...] ? NAYA RODRIGUEZ ? Accession #: ? [id number] ? : ? 1950 (Age: 66) ??M [...] tumor. This sample was processed at the [facility]. ??The slides were reviewed and the final diagnosis was made at [facility], [address] [place] [address]. ([place] License Number [id number]) Document reviewed and electronically signed by: AMIE [...] prior to verbal report. ??Procedure performed at [facility]. ??Staining of frozen section is adequate. ??Dr. [...] prior to verbal report. ??Procedure performed at [facility]. Staining of frozen section is adequate. ??Dr. [...] Chowdhury 11/03/2016 3:11 PM End of Report [facility] 10/30/2016 11:3 0 EST 11/01/2016 11:30 EST Tamara Reza DO PATHOLOGY ORDER ASHLIE [facility] [address] [place] [address] documented in this encounter Visit Diagnoses Not on filedocumented in this encounter Care Teams Orthotic Technician Relationship Specialty Start Date End Date More Naylor MD PCP - General 03/18/16 documented as of this encounter
--- OUTSIDE RECORDS SUMMARY | 2024-07-22 13:03 | XMS_ITS | Encounter Summary ---
Author Organization [facility] Address [address] [place] [address] Care Team Providers Care Senior Java Software Engineer Name Role Phone Maximilian Fall MD Primary Care Provider [phone] Encounter Details Date Type Department Care Team (Late st Contact Info) Description 12/31/2017 Results Only [facility] [phone] Tamara Reza, [address] [place], [place] [address] Social History Tobacco Use Types Packs/Day Years [...] ? NAYA RODRIGUEZ ? Accession #: ? [id number] ? : ? 1950 (Age: 67) ??M [...] [place] 01/02/2018 9:44 AM End of Report [facility] 12/31/2017 16:3 5 EST 01/01/2018 16:35 EST Tamara Reza DO PATHOLOGY ORDER ASHLIE [facility] [address] [place] [address] documented in this encounter Visit Diagnoses Not on filedocumented in this encounter Care Teams Senior Java Software Engineer Relationship Specialty Start Date End Date Maximilian Fall MD PCP - General 03/18/16 documented as of this encounter
--- OUTSIDE RECORDS SUMMARY | 2024-07-22 13:03 | XMS_ITS | Encounter Summary ---
Author Organization [facility] Address [address] [place] [address] Care Team Providers Care Snow Ranger Name Role Phone Maximilian Fall MD Primary Care Provider [phone] Encounter Details Date Type Department Care Team (Late st Contact Info) Description 03/10/2023 Lab Requisition [facility] Pathology & Laboratory Medicine - [address] [address] Rodrick Florentino MD [address] [place] [phone] Other microscopic hematuria Social History Tobacco [...] Name Priority Date/Time Associated Diagnosis Comments NON BELL PERSON/FNA CYTOLOGY Today 03/09/2023 10:55 EDT Other microscopic hematuria documented in this encounter Results * NON BELL PERSON/FNA CYTOLOGY (03/09/2023 10:55 EDT) Note to Patient The following pathology results have been interpreted by your pathologist and may be available to you before your health provider has had the opportunity to review them. Please allow time for your provider to receive these results and explore management options, if applicable. 03/12/2023 7:50 [facility] Final Diagnosis URINE, CATHETERIZED, CYTOLOGIC EVALUATION: - Negative for high grade urothelial carcinoma. - Reactive urothelial cells, abundant acute inflammatory cells and lymphocytes present. 03/12/2023 7:50 [facility] Attestation By the signature below, the attending physician certifies that they have personally conducted a gross and/or microscopic examination of the described specimens and rendered or confirmed the above diagnosis. 03/12/2023 7:50 [facility] at 0750 Clinical History Hematuria; R31.29 03/12/2023 7:50 [facility] Gross Description A. 160cc's of clear pale pink fluid (Cytolyt added) were received and processed by selective cellular enhancement technique. 03/12/2023 7:50 [facility] Performing Lab [facility] 03/12/2023 7:50 [facility] Scanned Images 03/12/2023 7:50 [facility] Urine URINE SPECIMEN COLLECTION, CATHETERIZED / Unknown 03/09/2023 10:55 EDT 03/10/2023 6:16 EDT Rodrick Florentino MD PATHOLOGY ORDERAB LES Performing Organization Address City/State/[facility] Co de Phone Number [facility] [address] [place] [address] documented in this encounter Visit Diagnoses Diagnosis Other microscopic hematuria documented in this encounter Care Teams Snow Ranger Relationship Specialty Start Date End Date Maximilian Fall MD PCP - General 03/18/16 documented as of this encounter
--- OUTSIDE RECORDS SUMMARY | 2024-07-22 13:03 | XMS_ITS | Encounter Summary ---
Author Organization [facility] Address [address] [place] [address] Care Team Providers Care Cardiopulmonary Technologist Name Role Phone Maximilian Fall MD Primary Care Provider [phone] Reason for Referral * (Routine/Next Available) - Receiving Office to Obtain Authorization Specialty Diagnoses / Procedures Referred By Contac t Referred To Contact Procedures XR OUTSIDE IMAGES CHEST Unknown, ProviderMD Referral ID Status Reason Start Date Expiration Date Visits Requested Visits Authorized [id number] Receiving Office to Obtain Authorization 06/29/2024 1 1 Reason for Visit * (Routine/Next Available) - Receiving Office to Obtain Authorization Specialty Diagnoses / Procedures Referred By Contac t Referred To Contact Procedures XR OUTSIDE IMAGES CHEST Unknown, MD [place] Referral ID Status Reason Start Date Expiration Date Visits Requested Visits Authorized [id number] Receiving Office to Obtain Authorization 06/29/2024 1 1 Encounter Details Date Type Department Care Team (Latest Contact Info) Description 06/29/2024 18:51 EDT - 06/29/2024 23:59 EDT Hospital Encounter [facility] [place] Reads [place] Discharge Disposition: Home [...] on filedocumented in this encounter Care Teams Cardiopulmonary Technologist Relationship Specialty Start Date End Date Maximilian Fall MD PCP - General 03/18/16 documented as of this encounter
--- OUTSIDE RECORDS SUMMARY | 2024-07-22 13:03 | XMS_ITS | Encounter Summary ---
Author Organization [facility] Address [address] [place] [address] Care Team Providers Care Research Subject Name Role Phone Maximilian Fall MD Primary Care Provider [phone] Encounter Details Date Type Department Care Team (Late st Contact Info) Description 04/10/2020 Lab Requisition [facility] Pathology & Laboratory Medicine - [address] [address] Outr Resulting Lab, Provider Social History Tobacco [...] 0.0 - 6.5 ng/mL 04/11/2020 10:46 EDT [facility] Blood VENOUS BLOOD / Unknown 04/10/2020 9:15 EDT 04/10/2020 15:53 EDT Narrative [facility] - 04/11/2020 10:46 EDT NOTE: Serum PSA concentration should not be interpreted as absolute evidence for the presence or absence of malignant disease. Assayed on Siemens ADVIA Cavis microcapsaur XPT using chemiluminescent technology.??Values obtained by using different assay methods cannot be used interchangeably. Provider Outr Resulting Lab CHEMISTRY & BLOOD GAS ORDERABLES [facility] [address] [place] [address] documented in this encounter Visit Diagnoses Not on filedocumented in this encounter Care Teams Research Subject Relationship Specialty Start Date End Date Maximilian Fall MD PCP - General 03/18/16 documented as of this encounter
--- OUTSIDE RECORDS SUMMARY | 2024-07-22 13:03 | XMS_ITS | Encounter Summary ---
Author Organization [facility] Address [address] [place] [address] Care Team Providers Care Cinder Snapper Name Role Phone Maximilian Fall MD Primary Care Provider [phone] Encounter Details Date Type Department Care Team (Late st Contact Info) Description 07/09/2021 Lab Requisition [facility] Pathology & Laboratory Medicine - [address] [address] Outr Resulting Lab, Provider Social History Tobacco [...] Lab MICROBIOLOGY - GENERAL ORDERABLES [facility] [address] [place] [address] * COVID-19 TESTING (07/08/2021 16:45 EDT) COVID-19 rt-PCR Result Negative Negative 07/10/2021 13:51 EDT [facility] Comment: This test has [...] developed and its performance characteristics determined by [facility]. It has not been cleared or approved [...] testing. This test is based on the [facility] COVID-19 Emergency Use Authorization (EUA) assay, with minor modification as defined by the FDA Performed on the Aptureo 7 Pro RT-PCR System. Performing Lab [facility] 07/10/2021 13:51 EDT [facility] Swab 07/08/2021 16:4 5 EDT 07/09/2021 15:41 EDT Provider Outr Resulting Lab MICROBIOLOGY - GENERAL ORDERABLES Performing Organization Address City/[facility] Co de Phone Number [facility] [address] [place] [address] documented in this encounter Visit Diagnoses Not on filedocumented in this encounter Care Teams Cinder Snapper Relationship Specialty Start Date End Date Maximilian Fall MD PCP - General 03/18/16 documented as of this encounter
--- OUTSIDE RECORDS SUMMARY | 2024-07-22 13:03 | XMS_ITS | Encounter Summary ---
Author Organization [facility] Address [address] [place] [address] Care Team Providers Care Money Counter Name Role Phone Maximilian Fall MD Primary Care Provider [phone] Encounter Details Date Type Department Care Team [...] on filedocumented in this encounter Care Teams Money Counter Relationship Specialty Start Date End Date Maximilian Fall MD PCP - General 03/18/16 documented as of this encounter
--- OUTSIDE RECORDS SUMMARY | 2024-07-22 13:03 | XMS_ITS | Referral Summary ---
Author Organization [facility] Address [address] [place] [address] Care Team Providers Care Coat Ironer Hand Name Role Phone Maximilian Fall MD Primary Care Provider [phone] Encounters Date Type Department Care Team Description 06/29/2024 Travel 06/29/2024 18:51 EDT - 06/29/2024 23:59 EDT Hospital Encounter [facility] Secondary Reads [place] Discharge Disposition: Home [...] DERABLES from Last 3 Months Care Teams Coat Ironer Hand Relationship Specialty Start Date End Date Maximilian Fall MD PCP - General 03/18/16
--- OUTSIDE RECORDS SUMMARY | 2024-07-22 13:03 | XMS_ITS | Encounter Summary ---
Author Organization [facility] Address [address] [place] [address] Care Team Providers Care Machine Sneller Name Role Phone Sharad Leon MD Primary Care Provider Unavail able Encounter Details Date Type Department Care Team (Latest Contact Info) Description 03/14/2016 7:58 EDT - 03/14/2016 23:59 EDT Hospital Encounter [address] [address] Unknown, Provider, Discharge Disposition: Home or Self [...] filedocumented in this encounter Care Teams Machine Sneller Relationship Specialty Start Date End Date Sharad Leon MD PCP - General 12/07/09 03/17/16 documented as of this encounter
--- OUTSIDE RECORDS SUMMARY | 2024-07-22 13:03 | XMS_ITS | Clinical Summary ---
Author Organization [facility] Address [address] [place] [address] Care Team Providers Care Set O Type Operator Name Role Phone Maximilian Fall MD Primary Care Provider Encounters Date Type Department Care Team Description 06/29/2024 18:51 EDT - 06/29/2024 23:59 EDT Hospital Encounter [facility] Secondary [place] Discharge Disposition: Home or [...] DERABLES from Last 3 Months Care Teams Set O Type Operator Relationship Specialty Start Date End Date Maximilian Fall MD PCP - General 03/18/16
--- OUTSIDE RECORDS SUMMARY | 2024-07-22 13:03 | XMS_ITS | Encounter Summary ---
Author Organization [facility] Address [address] [place] [address] Care Team Providers Care Lgsw Name Role Phone Maximilian Fall MD Primary Care Provider [phone] Encounter Details Date Type Department Care Team (Late st Contact Info) Description 06/28/2021 Lab Requisition [facility] Pathology & Laboratory Medicine - [address] [address] Bettina Shipman, DO [address] [place] [address] Encounter for other general examination Social History [...] explore management options, if applicable. 07/02/2021 9:15 [facility] Final Diagnosis A. [...] with no significant diagnostic abnormalities. 07/02/2021 9:15 [facility] Attestation There was significant resident/fellow involvement in the diagnostic evaluation of this case. By the signature below, the attending physician certifies that they have personally conducted a gross and/or microscopic examination of the described specimens and rendered or confirmed the above diagnosis. 07/02/2021 9:15 [facility] at 0915 Clinical History Dysphagia 07/02/2021 9:15 [facility] Gross Description A. [...] Destin Barros 06/29/2021 11:30 07/02/2021 9:15 EDT [facility] Resident/Bridger w: Gutierrez Castro DO 07/02/2021 9:15 EDT [facility] Performing Lab [facility] 9:15 EDT [facility] Scanned Images 07/02/2021 9:15 EDT [facility] Tissue ENTIRE ESOPHAGUS / Unknown [...] 22:58 EDT Bettina Shipman DO PATHOLOGY ORDERABLES [facility] [address] [place] [address] documented in this encounter Visit Diagnoses Diagnosis Encounter for other general examination documented in this encounter Care Teams Lgsw Relationship Specialty Start Date End Date Maximilian Fall MD PCP - General 03/18/16 documented as of this encounter
--- OUTSIDE RECORDS SUMMARY | 2024-07-22 13:03 | XMS_ITS | Encounter Summary ---
Author Organization [facility] Address [address] [place] [address] Care Team Providers Care Requisition Approver Name Role Phone Maximilian Fall MD Primary Care Provider [phone] Encounter Details Date Type Department Care Team (Late st Contact Info) Description 11/10/2022 Lab Requisition [facility] Pathology & Laboratory Medicine - [address] [id number] Outr Resulting Lab, Provider Social History Tobacco [...] Salmonella PCR Negative Negative 11/11/2022 0:14 EST [facility] Shigella/Enteroin vasive E. coli Negative Negative 11/11/2022 0:14 EST [facility] HN LAB CAMPYLOBACTER PCR Negative Negative 11/11/2022 0:14 EST [facility] Shiga Toxin PCR Negative Negative 2 0:14 EST [facility] Feces SPECIMEN FROM RECTUM / Unknown 11/09/2022 10:00 EST 11/10/2022 17:36 EST Provider Outr Resulting Lab MICROBIOLOGY - GENERAL ORDERABLES Performing Organization Address City/State/[facility] Co de Phone Number [facility] [address] [place] [address] documented in this encounter Visit Diagnoses Not on filedocumented in this encounter Care Teams Requisition Approver Relationship Specialty Start Date End Date Maximilian Fall MD PCP - General 03/18/16 documented as of this encounter
--- OUTSIDE RECORDS SUMMARY | 2024-07-22 13:03 | XMS_ITS | Encounter Summary ---
Author Organization [facility] Address [address] [place] [address] Care Team Providers Care Stunt Woman Name Role Phone Sharad Leon MD Primary Care Provider Unavail able Encounter Details Date Type Department Care Team (Late st Contact Info) Description 03/13/2016 Results Only [facility] [phone] Marcy Laurent, DO [address] [place] [address] Social History Tobacco Use Types [...] ? BRIAN RODRIGUEZ ? Accession #: ? [id number] ? : ? 1950 (Age: 65) ??M [...] to the proximal stapled margin, two account retention representative cross sections and one-half of the longitudinally bisected distal tip are submitted in 1. Dr. Beth 03/17/2016 3:13 PM End of Report [facility] 03/13/2016 19:4 2 EDT 03/14/2016 19:42 EDT Marcy Laurent DO PATHOLOGY ORDERABLES [facility] [address] [place] [address] * SUSCEPTIBILITY (03/13/2016 12:15 EDT) Result ESCHERICHIA COLI Organism identification performed by client. 03/17/2016 7:51 EDT [facility] URINE / Unknown 03/13/2016 [...] - GENER AL ORDERABLES Performing Organization Address City/[facility] Co de Phone Number [facility] [address] [place] [address] documented in this encounter Visit Diagnoses Not on filedocumented in this encounter Care Teams Stunt Woman Relationship Specialty Start Date End Date Sharad Leon MD PCP - General 12/07/09 03/17/16 documented as of this encounter
--- OUTSIDE RECORDS SUMMARY | 2024-07-22 13:03 | XMS_ITS | Encounter Summary ---
Author Organization [facility] Address [address] [place] [address] Care Team Providers Care Laborer Heading Name Role Phone Maximilian Fall MD Primary Care Provider [phone] Encounter Details Date Type Department Care Team (Late st Contact Info) Description 11/28/2021 Lab Requisition [facility] Pathology & Laboratory Medicine - [address] [phone] Outr Resulting Lab, Provider Social History Tobacco [...] Outr Resulting Lab MICROBIOLOGY - GENERAL ORDERABLES [facility] [address] [place] [address] * COVID-19 TESTING (11/27/2021 12:35 EST) COVID-19 rt-PCR Result Negative Negative 11/29/2021 16:23 EST [facility] Comment: This test has [...] developed and its performance characteristics determined by [facility]. It has not been cleared [...] testing. This test is based on the [facility] COVID-19 Emergency Use Authorization (EUA) assay, with minor modification as defined by the FDA Performed on the Wetradetogethero 7 Flex RT-PCR System. Performing Lab [facility] 11/29/2021 16:23 EST [facility] Swab 11/27/2021 12:3 5 EST 11/28/2021 17:45 EST Provider Outr Resulting Lab MICROBIOLOGY - GENERAL ORDERABLES [facility] [address] [place] [address] documented in this encounter Visit Diagnoses Not on filedocumented in this encounter Care Teams Laborer Heading Relationship Specialty Start Date End Date Maximilian Fall MD PCP - General 03/18/16 documented as of this encounter
--- OUTSIDE RECORDS SUMMARY | 2024-07-22 13:03 | XMS_ITS | Encounter Summary ---
Author Organization [facility] Address [address] [place] [address] Care Team Providers Care Grinding Machine Operator Name Role Phone More Fall MD Primary Care Provider [phone] Encounter Details Date Type Department Care Team (Late st Contact Info) Description 09/04/2016 Results Only [facility] [phone] More Fall MD [address] [place] [phone] Social History Tobacco Use Types Packs/Day Years [...] ? NAYA RODRIGUEZ ? Accession #: ? [id number] ? : ? 1950 (Age: 66) ??M [...] 2:42 PM End of Report [facility] 09/04/2016 11:2 3 EDT 09/05/2016 11:23 EDT More Fall MD PATHOLOGY ORDERABLES [facility] [address] [place] [address] documented in this encounter Visit Diagnoses Not on filedocumented in this encounter Care Teams Grinding Machine Operator Relationship Specialty Start Date End Date More Fall MD PCP - General 03/18/16 documented as of this encounter
--- OUTSIDE RECORDS SUMMARY | 2024-07-22 13:03 | XMS_ITS | Encounter Summary ---
Author Organization [facility] Address [address] [place] [address] Care Team Providers Care Pool Hall Inspector Name Role Phone Maximilian Fall MD Primary Care Provider [phone] Encounter Details Date Type Department Care Team (Late st Contact Info) Description 08/15/2022 Lab Requisition [facility] Pathology & Laboratory Medicine - [address] [address] Zeyad Hudson, [address] [place] [address] Neoplasm of unspecified behavior of bone, soft [...] explore management options, if applicable. 08/18/2022 11:15 [facility] Final Diagnosis A. SKIN OF NASAL DORSUM, RIGHT, SHAVE BIOPSY: - Basal cell carcinoma, infiltrative type. - Basal cell carcinoma present at peripheral and deep tissue edges. 08/18/2022 11:15 [facility] Attestation By the signature below, the attending physician certifies that they have 1) personally conducted a gross and/or microscopic examination of the described specimen(s), and/or personally interpreted the results of laboratory testing of the described specimen(s), and 2) personally rendered or confirmed the above diagnosis. 08/18/2022 11:15 [facility] at 1114 Microscopic Description Emanating [...] of the islands and stroma. 08/18/2022 11:15 [facility] Clinical History History BCC; clinical diagnosis code: D49.2 08/18/2022 11:15 [facility] Gross Description A. Received in [...] A1-A3. TOLU CHRIS 08/16/2022 10:29 08/18/2022 11:15 [facility] Performing Lab [facility] 08/18/2022 11:15 [facility] Scanned Images 08/18/2022 11:15 [facility] Tissue TISSUE SPECIMEN FROM SKIN / Unknown 08/14/2022 10:25 EDT 08/15/2022 21:12 EDT Zeyad MIRAMONTES PATHOLOGY ORDERABL [facility] [address] [place] [address] documented in this encounter Visit Diagnoses Diagnosis Neoplasm of unspecified behavior of bone, soft tissue, and skin documented in this encounter Care Teams Pool Hall Inspector Relationship Specialty Start Date End Date Maximilian Fall MD PCP - General 03/18/16 documented as of this encounter
--- OUTSIDE RECORDS SUMMARY | 2024-07-22 13:04 | XMS_ITS | Encounter Summary ---
Author Organization [facility] Address [facility] [place] [address] Care Team Providers Care Ultrasonic Welding Machine Operator Name Role Phone Deacon Watters APRN Primary Care Provider [phone]- [phone] Reason for Visit * Reason Onset Date Comments Referral 07/05/2024 Coronary Artery Disease 07/05/2024 Encounter Details Date Type Department Care Team (Late st Contact Info) Description 07/05/2024 Telephone Cardiology at [address] [phone] Lesa Duncan, superintendent plant protection; Coronary Artery Disease Social History Tobacco Use Types Packs/Day Years Used Date Smoking Tobacco: Former Cigarettes 4 30 1 12/01/1961 - 10/01/1992 Smokeless Tobacco: Former Chew Comments:Denies vaping Alcohol Use Standard Drinks/Week Comments Yes 0 (1 standard drink = 0.6 oz pur e alcohol) twice a year [facility] Utilities Answer Date Recorded In the past 12 months has e [employer], gas, oil, or water [employer] threatened to shut off services in your [...] in the past [address] [facility], were you homeless or living in a [...] were not included. [facility] [address] [place] [address] [place] [address] Brian Rodriguez was discharged from [facility] with a referral to see track walker Dr. Franky Shaver following NSTEMI June 30. Brian Rodriguez is a 74 y.o. male with history of HTN, HLD, migraines, DM2, and UC who presented to [facility] for chest pain and was transferred [place] [facility] for [place]STEMI found to have HFrEF. Course [...] 3.66) performed by Dion Osullivan MD at [facility] PRO COLONOSCOPY, BIOPSY N/A 02/22/2019 COLONOSCOPY FLEXIBLE, WITH BX (WRVU 3.66) performed by Dion Osullivan MD at [facility] PRO COLONOSCOPY, BIOPSY N/A 03/28/2022 COLONOSCOPY FLEXIBLE, WITH BX (WRVU 3.66) performed by Mona Turner MD at [facility] PRO COLONOSCOPY, BIOPSY N/A 01/20/2024 COLONOSCOPY FLEXIBLE, WITH BX (WRVU 3.56) performed by Anthony Hamlin MD at [facility] PRO COLONOSCOPY, DIAGNOSTIC 11/27/2011 COLONOSCOPY, DIAGNOSTIC performed by Dion OSULLIVAN at [facility] PRO COLONOSCOPY, DIAGNOSTIC 07/13/2014 COLONOSCOPY, DIAGNOSTIC performed by Dion Osullivan MD at [facility] PRO COLONOSCOPY, REMV LESN, SNARE N/A 02/22/2019 COLONOSCOPY, POLYPECTOMY, REMOVAL LESION BY SNARE (WRVU 4.67) performed by Dion Osullivan MD at [facility] PRO COLONOSCOPY, REMV LESN, SNARE N/A 02/26/2021 COLONOSCOPY, POLYPECTOMY, REMOVAL LESION BY SNARE (WRVU 4.67) performed by Dion Osullivan MD at [facility] PRO SIGMOIDOSCOPY, DIAGNOSTIC 03/16/2012 FLEXIBLE SIGMOIDOSCOPY performed by YUDI MALLOY at [facility] PRO UPPER GI ENDOSCOPY, DIAGNOSTIC N/A 04/28/2019 EGD, UPPER GI ENDOSCOPY performed by Iza Coates MD at [facility] UPPER GI ENDOSCOPY, EXAM 10/01/2012 UPPER GI ENDOSCOPY performed by Dion OSULLIVAN at [facility] Current Medications. dicyclomine (Bentyl) 20 [...] the patient to see Cardiology here in [place]. documented in this encounter Plan of Treatment Upcoming Encounters Date Type Department Care Team (Late st Contact Info) Description 08/15/2024 9:00 AM EDT Office [place] [address] Dion Osullivan MD [facility] [place] [address] 09/01/2024 9:40 AM EDT Office Visit Cardiology at [address] [place] [address] Franky Shaver MD [facility] [address] 09/01/2024 11:20 AM EDT Office Visit Dermatology at [facility] [address] [place] [address] Gómez Mercer MD [facility] [address] [place] [address] 09/21/2024 2:45 PM EDT Office Visit [facility] Sp[facility] at [facility] [place] [address] Trung Hoyos MD [facility] [place] [address] documented as of this encounter Visit Diagnoses Not on filedocumented in this encounter Care Teams Ultrasonic Welding Machine Operator Relationship Specialty Start Date End Date Deacon Watters, SR. STRATEGIC SOURCING MANAGER [address] [place] [address] PCP - General Family Medicine 02/17/22 documented as of this encounter
--- OUTSIDE RECORDS SUMMARY | 2024-07-22 13:04 | XMS_ITS | Encounter Summary ---
Author Organization [facility] Address [facility] [place] [address] Care Team Providers Care District Plant Superintendent Name Role Phone Duong Deacon Wells APRN Primary Care Provider +1- [phone] Reason for Visit * Reason Comments Medication Refill Encounter Details Date Type Department Care Team (Late st Contact Info) Description 07/01/2024 [place] [address] Dion Barlow MD [facility] [place] [address] Social History Tobacco Use Types Packs/Day Years Used Date Smoking Tobacco: Former Cigarettes 4 30 1 12/01/1961 - 10/01/1992 Smokeless Tobacco: Former Chew Comments:Denies vaping Alcohol Use Standard Drinks/Week Comments Yes 0 (1 standard drink = 0.6 oz pur e alcohol) twice a year [facility] Utilities Answer Date Recorded In the past 12 months has e [employer], gas, oil, or water [employer] threatened to shut off services in your [...] any time in the past 12 m [facility], were you homeless or living in a jail (including now)? No 07/01/2024 IPV Inpatient Questions [...] 9:00 AM EDT Office [place] [address] Dion Barlow MD [facility] [place] [address] 09/01/2024 9:40 AM EDT Office Visit Cardiology at [address] [phone] Franky Shaver MD [facility] [place] [address] 09/01/2024 11:20 AM EDT Office Visit Dermatology at [facility] [address] [place] [phone] Gómez Mercer MD [facility] [address] [place] [address] 09/21/2024 2:45 PM EDT Office Visit [place] [phone] Trung Hoyos MD [facility] [place] [address] documented as of this encounter Visit Diagnoses Not on filedocumented in this encounter Care Teams District Plant Superintendent Relationship Specialty Start Date End Date Deacon Watters, JAZMINE [address] [place] [address] PCP - General Family Medicine 02/17/22 documented as of this encounter
--- OUTSIDE RECORDS SUMMARY | 2024-07-22 13:04 | XMS_ITS | Encounter Summary ---
Author Organization [facility] Address [address] [place] [address] Care Team Providers Care Skating Carhop Name Role Phone Sharad Mcleod MD Primary Care Provider Unavail able Encounter Details Date Type Department Care Team (Late st Contact Info) Description 10/22/2004 Results Only [facility] [address] [place] [address] Maximilian Quiroga MD [address] [place] [phone] Social History Tobacco Use Types Packs/Day Years [...] ? NAYA RODRIGUEZ ? Accession #: ? [id number] ? : ? 1950 (Age: 54) ??M [...] or eosinophils seen in this biopsy. ??(Dr. Hair)/[facility] ?? Document reviewed and electronically signed by: [...] submitted intact in one cassette. ?? (Dr. Terrazas-MS[place] ?? End of Report JOSEPHINE ESCOTO 10/22/2004 10/22/2004 14: 58 EST Maximilian Quiroga MD PATHOLOGY ORDERABLES JOSEPHINE ESCOTO [address] [place] [address] documented in this encounter Visit Diagnoses Not on filedocumented in this encounter Care Teams Skating Carhop Relationship Specialty Start Date End Date Sharad Mcleod MD PCP - General 12/07/09 03/17/16 documented as of this encounter
--- OUTSIDE RECORDS SUMMARY | 2024-07-22 13:04 | XMS_ITS | Encounter Summary ---
Author Organization [facility] Address [address] [place] [address] Care Team Providers Care Security Flex Utility Officer Name Role Phone Unavailable Primary Care Provider Unavailabl e Encounter Details Date Type Department Care Team (Late st Contact Info) Description 12/05/2009 Orders Only [facility] - [facility] [address] [place], [place] [address] [place] [address] [place] [phone] Social History Tobacco Use Types Packs/Day [...] ? RODRIGUEZ, BRIAN ? Accession #: ? [id number] ? : ? 1950 (Age: 59) ??M [...] ?? lesions suggestive of a neoplastic focus. ??Office Machines Teacher sections are submitted in (A1) and (A2). (Davina Ordoñez)/mpl ? End of Report ? JOSEPHINE ESCOTO 12/05/2009 12/06/2009 8:4 7 EST Jennifer Saenz MD PATHOLOGY ORDERABLES [facility] [address] [place] [address] documented in this encounter Visit Diagnoses Not on filedocumented in this encounter
--- OUTSIDE RECORDS SUMMARY | 2024-07-22 13:04 | XMS_ITS | Clinical Summary ---
Author Organization [facility] Address [facility] [place] [address] Care Team Providers Care Head Of Business Development Name Role Phone Deacon Watters APRN Primary Care Provider [phone] Allergies Active Allergy Reactions Criticality Noted Date [...] (12/06/2023): Colonoscopy 04/08/10 (Dr. Gomes [facility]) - inflammation only within the rectum and sigmoid; extent of the exam was to the hepatic flexure; biopsies proximal to the sigmoid nl Repeat exam 11/27/11 ([facility]): mildly active colitis in the sigmoid colon [...] ascending colon. Several HPs and one TA. Thayer 03/2022 - [place] 1 limited to rectosigmoid, diverticulosis. No dysplasia TREATMENT: cortenemas, Asacol, Rowasa, prednisone, and imodium Diabetes mellitus 10/01/2011 Hearing loss 10/01/2011 GERD (gastroesophageal reflux disease) 1 Hydrocele 10/01/2011 Asthma 10/01/2011 Encounters Date Type Department Care Team Description 07/05/2024 Abstract Cardiology at [address] [address] Lesa Duncan, RN 07/05/2024 Telephone Cardiology at [address] [address] Lesa Duncan, station attendant; Coronary Artery Disease 07/01/2024 2:30 PM EDT - 07/01/2024 3:30 PM EDT Surgery [place] [address] Lizzette Hayden MD CARDIAC CATHETERIZATION 07/01/2024 Refill Gastroenterology [place] [address] Dion Barlow MD 06/30/2024 3:44 PM EDT - 07/04/2024 3:25 PM EDT Hospital Encounter Heart and Vascular Unit Level 3 [place] [phone] Triston Godinez MD Welch, Terrence D, MD NSTEMI (non-ST elevated myocardial infarction) (Primary Dx) Discharge Disposition: Home 06/29/2024 7:25 PM EDT Ancillary Procedure [place] [phone] Deacon Watters, [employer] 06/29/2024 [place] [address] Ramakrishna Elliott MD 06/29/2024 External [place] [address] 06/22/2024 8:00 AM EDT Office Visit [facility] and [facility] [place] [address] Trung Hoyos MD Radiculopathy of cervical region (Primary Dx) 06/22/2024 Travel 06/09/2024 Telephone Gastroenterology [place] [address] Marcelle Weinberg, JAZMINE 06/07/2024 1:20 PM EDT Office Visit Dermatology at [address] [address] Gómez Mercer MD Tinea cruris 06/07/2024 12:55 PM EDT - 06/07/2024 11:59 PM EDT Hospital [place] [address] Left sided colitis without complications Discharge Disposition: Home 06/06/2024 12:56 PM EDT - 06/06/2024 11:59 PM EDT Hospital [place] [address] Left sided colitis without complications Discharge Disposition: Home 06/06/2024 8:00 AM EDT Office Visit Gastroenterology [place] [address] Marcelle Weinberg, [employer] Left sided colitis without complications 06/06/2024 Telephone Gastroenterology [place] [address] Marcelle Weinberg, JAZMINE 06/06/2024 Travel from Last [...] time in the past 12 m [facility], were you homeless or living in a chcf (including now)? No 07/01/2024 DH IPV Inpatient [...] 9:00 AM EDT Office Visit Gastroenterology [place] [phone] Dion Barlow MD [facility] [place] [address] 09/01/2024 9:40 AM EDT Office Visit Cardiology at [address] [address] Franky Shaver MD [facility] [place] [address] 09/01/2024 11:20 AM EDT Office Visit Dermatology at [facility] [address] [place] [phone] Gómez Mercer MD [facility] [address] [place] [address] 09/21/2024 2:45 PM EDT Office Visit [facility] [place] [address] Trung Hoyos MD [facility] [place] [address] Health Maintenance Due Date Last Done Comments [...] PM EDT URINALYSIS BEAKER MICROSCPIC REFLEX EXAM ([facility]) Routine 07/03/2024 3:02 PM EDT URINALYSIS [...] O RDERABLES [facility] [place] [place] [address] * Scan Doc: Telemetry Strips (07/04/2024 7:32 AM EDT) Only the most recent of18 resultswithin the time period is included. Narrative 07/04/2024 7:32 AM EDT Ordered by an unspecified provider. Scanning Provider MEDIA MGR SCAN EXT O RDR/RSLT * (ABNORMAL) CBC (with Diff) (07/04/2024 1:43 AM EDT) Only the most recent of5 resultswithin the time period is included. [facility] White Blood Cell 5.05 4.00 - 9.50 [...] 27.5 - 32.1 pg 07/04/2024 2:00 AM [facility] Mean Cell Hemoglobin Concentration 33.3 32.0 - 35.7 g/dL 07/04/2024 2:00 AM [facility] Platelet 145 145 - 357 x10(3)/mc L 07/04/2024 2:00 AM [facility] Mean Platelet Volume 11.5 7.6 - 12.9 fL 07/04/2024 2:00 AM [facility] RDW Standard Deviation 48.2(H) 36.0 - 45.0 fL 07/04/2024 2:00 AM [facility] RDW coefficient of variation 13.1 11.4 - 13.8 % 07/04/2024 2:00 AM [facility] NRBC% auto 0.0 % 07/04/2024 2:00 AM [facility] NRBC Absolute 0.00 0.00 - 0.00 x10(3)/mc L 07/04/2024 2:00 AM [facility] Neutrophil % 65.9 % 07/04/2024 2:00 AM [facility] Neutrophil Absolute 3.33 1.70 - 6.10 x10(3)/mc L 07/04/2024 2:00 AM [facility] Lymph % 20.8 % 07/04/2024 2:00 AM [facility] Lymph Absolute 1.05 0.90 - 3.20 x10(3)/mc L 07/04/2024 2:00 AM [facility] Monocyte % 9.3 % 07/04/2024 2:00 AM [facility] Monocyte Absolute 0.47 0.30 - 0.90 x10(3)/mc L 07/04/2024 2:00 AM [facility] Eos % 3.0 % 07/04/2024 2:00 AM [facility] Eos Absolute 0.15 0.00 - 0.40 x10(3)/mc L 07/04/2024 2:00 AM EDT [facility] Basophil % 0.6 % 07/04/2024 2:00 AM EDT [facility] Baso Absolute 0.03 0.00 - 0.10 x10(3)/mc L 07/04/2024 2:00 AM EDT [facility] Immature Gran % 0.4 % [...] ORDERABLE S [facility] [address] * Magnesium (07/04/2024 1:43 AM EDT) Only the most recent of4 resultswithin the time period is included. Magnesium 0.80 0.69 - 1.07 mMol/L 07/04/2024 2:23 AM EDT [facility] Blood VENOUS BLOOD SPECIMEN / Unknown IP Care Team Draw / Unknown 07/04/2024 1:43 AM EDT 07/04/2024 1:52 AM EDT Triston Godinez MD CHEMISTRY ORDERABLES Performing Organization Address City/[facility]/ZIP Co de Phone Number [facility] [address] * (ABNORMAL) Basic Metabolic Panel (07/04/2024 1:43 AM EDT) Only the most recent of5 resultswithin the time period is included. Glucose 156 65 - 199 mg/dL 07/04/2024 2:23 AM [facility] Comment:Glucose Concentratio n >=200 mg/dL plus symptoms is consistent with Diabetes Mellitus. Blood Urea Nitrogen 12 10 - 20 mg/dL 07/04/2024 2:23 AM [facility] Creatinine 1.27 0.80 - 1.50 mg/dL 07/04/2024 2:23 AM [facility] Sodium 141 135 - 145 mMol/L 07/04/2024 2:23 AM [facility] Potassium 3.9 3.5 - 5.0 mMol/L 07/04/2024 2:23 AM [facility] Chloride 108(H) 98 - 107 mMol/L 07/04/2024 2:23 AM [facility] Carbon Dioxide 22 22 - 31 mMol/L 07/04/2024 2:23 AM [facility] Anion Gap 11 5 - 15 mMol/L 07/04/2024 2:23 AM [facility] Calcium 9.4 8.5 - 10.5 mg/dL 07/04/2024 2:23 AM [facility] Est Glomerular Filtration Rate - Male 59 mL/min/1. 73 m?? 07/04/2024 2:23 AM [facility] Comment: This patient's estimated GFR [...] Godinez MD CHEMISTRY ORDERABLES Performing Organization Address [facility] [[email or web address]] Co de Phone Number [facility] [address] * (ABNORMAL) Urinalysis Microscopic Reflex to Culture [...] Denny MD URINE ORDERABLES Performing Organization Address [facility] [[email or web address]] Co de Phone Number [facility] [place] [address] * Urinalysis Microscopic with Reflex to Culture (07/03/2024 3:02 PM EDT) Urine URINE SPECIMEN OBTAINED BY CLEAN CATCH PROCEDURE / Unknown Non Blood Collection / Unknown 07/03/2024 3:02 PM EDT 07/03/2024 3:13 PM EDT Armond Denny MD URINE ORDERABLES [facility] [address] * (ABNORMAL) Urinalysis with reflex Culture (07/03/2024 [...] EDT [facility] Specific [place] Urine Automated 1.024 1.005 - 1.030 07/03/2024 [...] URINE ORDERABLES [facility] [place] [address] * (ABNORMAL) Urine culture (07/03/2024 3:02 PM [...] Denny MD MICROBIOLOGY - GENER AL ORDERABLES [facility] [place] [address] * CT Abdomen & Pelvis w Contrast (07/02/2024 3:13 AM EDT) WORKSTATION ID [id number] RAD Anatomical Region Laterality Modality Abdomen, Pelvis [...] questions please contact the health respiratory care practitioner that requested your imaging first. ? Narrative [...] have questions please contactthe health respiratory care practitioner that requested your imaging first. Electronically signed by: Gutierrez Hamilton MD, [facility]([phone]), at 07/02/2024 9:20 AM Triston Godinez MD [...] (Bezet) 473 ms MUSE SYSTEM Calculated P [place] 63 degrees MUSE SYSTEM Calculated R [place] 87 degrees MUSE SYSTEM Calculated T [place] 8 degrees MUSE SYSTEM INTERPRETATION Normal sinus [...] Modality Other Narrative 07/01/2024 7:47 PM EDT ?[facility] ? Cardiac Catheterization/Intervention Report ? Patient Name: Naya Rodriguez. ? Procedure Date: 07/01/2024 ? A #: [id number] ? Primary Physician: Mogadam, Emad ? Case #: [id number] ? File Name: [id number] ? Catheterization Order Number: [id number] ? [facility] ? Final Report [place], [place] ? Patient Name: ? Naya M. Rodriguez ?ID#: ?[id number] ? : ?1950 ? Procedure Date: ? [...] procedure was Urgent. The indication for ?the clinical laboratory technician visit is ACS less than [...] ? A premounted 2.75 x 22 mm Francis Dade (EILEEN) was deployed ? with a maximum [...] dose administered prior to arrival in the clinical laboratory technician. ?Recommended anti-platelet/anti-thrombotic regimen: ?Continue aspirin 81 mg daily. ?Continue clopidogrel 75 mg daily. ?These recommendations are made at the time of the intervention. Patient ?and provider preferences or a changing clinical situation may require ?modification of this regimen. Consult [facility] Interventional Cardiology for ?questions. ?This patient has [...] against any medical treatment. Consult ?http://tools.acc.org/DAPTriskapp/#!/content/calculator/ or [facility] ?Interventional Cardiology for questions ? Conclusions: ?* [...] Procedure Note Lizzette Hayden MD - 07/14/2024 [facility] Cardiac Catheterization/Intervention Report Patient Name: Naya Rodriguez Procedure Date: 07/01/2024 A #: [id number] Primary Physician: Lizzette Hayden Case #: [id number] File Name: [id number] Catheterization Order Number: [id number] [facility] FinalReport [place], [place] Patient Name: Naya Rodriguez ID#:[id number] :1950 Procedure Date: July 01, 2024 Case [...] patient was designated as ASA Class III. [facility] clinical frailty scale is 4: Vulnerable. Diagnostic Tests: Medications Prior to Procedure: Aspirin, Angiotensin II Receptor Marci and Statin. Indications for Diagnostic Cath: The priority of the diagnostic procedure was Urgent. The indicationfor the clinical laboratory technician visit is ACS less than [...] time was 37.0 minutes, dose area product iap179.00 Gy/cm2 and air kerma was 1,874 mGY. [...] The lesion was predilated with a 2.50mm [id number] MM balloon with a maximum inflation pressure of 14atmospheres. A premounted 2.75 x 22 mm Francis Dade (EILEEN) wasdeployed with a maximum inflation pressure [...] dose administered prior to arrival in the clinical laboratory technician. Recommended anti-platelet/anti-thrombotic regimen: Continue aspirin 81 mg daily. Continue clopidogrel 75 mg daily. These recommendations are made at the time of the intervention.Patient and provider preferences or a changing clinical situation mayrequire modification of this regimen. Consult [facility] Interventional Cardiologyfor questions. This patient has a [...] or against any medical treatment.Consult http://tools.acc.org/DAPTriskapp/#!/content/calculator/ or [facility] Interventional Cardiology for questions Conclusions: * One [...] ORDERABLE S [facility] [address] * (ABNORMAL) Hemogram (07/01/2024 10:32 AM EDT) Only the most recent of2 resultswithin the time period is included. White Blood Cell 7.02 4.00 - 9.50 x10(3)/mc L 07/01/2024 11:20 AM [facility] Red Blood Cell 3.68(L) 4.58 - 5.54 x10(6)/mc L 07/01/2024 11:20 AM [facility] Hemoglobin 12.2(L) 13.7 - 16.5 g/dL 07/01/2024 11:20 AM [facility] Hematocrit 36.5(L) 40.5 - 48.5 % 07/01/2024 11:20 AM [facility] Mean Cell Volume 99.2(H) 82.9 - 93.1 fL 07/01/2024 11:20 AM [facility] Mean Cell Hemoglobin 33.2(H) 27.5 - 32.1 pg 07/01/2024 11:20 AM [facility] Mean Cell Hemoglobin Concentration 33.4 32.0 - 35.7 g/dL 07/01/2024 11:20 AM [facility] Platelet 167 145 - 357 x10(3)/mc L 07/01/2024 11:20 AM EDT [facility] Mean Platelet Volume 11.4 7.6 - 12.9 fL 07/01/2024 11:20 AM EDT [facility] RDW Standard Deviation 46.5(H) 36.0 - 45.0 fL 07/01/2024 11:20 AM EDT [facility] RDW coefficient of variation 12.9 11.4 - 13.8 % 07/01/2024 11:20 AM EDT [facility] NRBC% auto 0.0 % 07/01/2024 11:20 AM [facility] NRBC Absolute 0.00 0.00 - 0.00 x10(3)/mc L 07/01/2024 11:20 AM EDT [facility] Blood VENOUS BLOOD SPECIMEN / Unknown IP Care Team Draw / Unknown 07/01/2024 10:32 AM EDT 07/01/2024 10:54 AM EDT Armond Denny MD HEMATOLOGY ORDERABLE S [facility] [address] * (ABNORMAL) Troponin-T, Yuriy Sensitivity 3 Hour [...] troponin value can be found in the [facility] Test Catalog Troponin - https://one-.testcatalog.org/catalogs/565/files/56529 Reference: Fourth Apollo Definition of Myocardial Infarction. Journal of the [employer] College [employer]iology 2018;72:6689-1469 Troponin-T, HS 3 hr delta 65 ng/L [...] 11:25 PM EDT 06/30/2024 11:47 PM EDT Trsiton Godinez MD CHEMISTRY ORDERABLES [facility] [place] [address] * (ABNORMAL) Troponin-T, High Sensitivity 1 Hour [...] troponin value can be found in the [facility] Test Catalog Troponin - https://[facility].testcatalog.org/catalogs/565/files/39368 Reference: Fourth Apollo Definition of Myocardial Infarction. Journal of the [employer] College [employer]iology 2018;72:9815-4602 Troponin-T, HS 1 hr delta 06/30/2024 9:22 PM EDT [facility] Comment:Delta troponin value not calculated, sample collected outside of delta calculation time limit. Blood VENOUS BLOOD SPECIMEN / Unknown Venipuncture / Unknown 06/30/2024 8:22 PM EDT 06/30/2024 8:40 PM EDT Triston Godinez MD CHEMISTRY ORDERABLES [facility] [address] * XR Abdomen Flat & Upright (06/30/2024 6:56 PM EDT) [employer] Signature WORKSTATION ID [id number] RAD Anatomical Region Laterality Modality Abdomen N/A Digital Radiogra phy Impressions 06/30/2024 9:12 PM EDT No obstruction or perforation. Thank you for letting us participate in the care of this patient. ??If you are a health care provider and have any questions regarding this report, please contact the number below. ??For patients who have questions please contact the health respiratory care practitioner that requested your imaging first. ? Electronically signed by: Shireen Hurtado MD, [facility] ([phone]), at 06/30/2024 9:12 PM Narrative 06/30/2024 9:12 [...] have questions please contactthe health respiratory care practitioner that requested your imaging first. Electronically signed by: Shireen Hurtado MD, [facility]([phone]), at 06/30/2024 9:12 PM Triston Godinez MD IMG DX ORDERABLES * (ABNORMAL) Troponin-T, High Sensitivity (06/30/2024 6:09 PM EDT) [facility] Troponin-T, High Sensitivity Initial 1,209([facility] ) <=22 ng/L 06/30/2024 7:23 PM [...] troponin value can be found in the [facility] Test Catalog Troponin - https://[facility] county memorial hospitalMesMateriaux.testcatalog.org/catalogs/565/files/49474 Reference: Fourth Apollo Definition of Myocardial Infarction. Journal of the [employer] College of Cardiology 2018;72:0885-8137 Blood VENOUS BLOOD SPECIMEN / Unknown Venipuncture / Unknown 06/30/2024 6:09 PM EDT 06/30/2024 6:18 PM EDT Triston Godinez MD CHEMISTRY ORDERABLES Performing Organization Address City/[facility]/ZIP Co de Phone Number [facility] [address] * TSH (06/30/2024 6:09 PM EDT) Thyroid Stimulating Hormone 2.80 0.27 - 4.20 mcIU/mL 06/30/2024 6:51 PM EDT [facility] Blood VENOUS BLOOD SPECIMEN / Unknown Venipuncture / Unknown 06/30/2024 6:09 PM EDT 06/30/2024 6:18 PM EDT Triston Godinez MD CHEMISTRY ORDERABLES [facility] [address] * (ABNORMAL) pro-Brain Natriuretic Peptide (06/30/2024 6:09 PM EDT) NT-proBNP 2,259(H) <=449 pg/mL 06/30/2024 6:51 PM EDT [facility] Blood VENOUS BLOOD SPECIMEN / Unknown Venipuncture / Unknown 06/30/2024 6:09 PM EDT 06/30/2024 6:18 PM EDT Triston Godinez MD CHEMISTRY ORDERABLES [facility] [place] [address] * Lipid Panel (Reflex Direct LDL) (06/30/2024 [...] 6:09 PM EDT 06/30/2024 6:[address] [facility] - 06/30/2024 6:51 PM EDT [...] CHEMISTRY ORDERABLES [facility] [place] [address] * (ABNORMAL) Hemoglobin A1c (06/30/2024 6:08 PM EDT) [facility] Hemoglobin A1c 7.3(H) 4.3 - 5.6 % [...] red blood cell turnover may not be wine sales representative of glycemic control. Reference Interval: [...] into estimated average glucose values. ??Diabetes Care 2008:31(8):3404-1120. Additional resources are available on the ADA website (diabetes.org). Triston Godinez MD CHEMISTRY ORDERABLES Performing Organization Address [facility]/State/ZIP Co de Phone Number [facility] [place] [address] * ECHO COMPLETE W CONTRAST (06/30/2024 5:22 [...] NSTEMI (non-ST elevation myocardial infarction) Exam Location: [facility]. ? Conclusions -Left ventricular systolic function is moderately reduced. The left ventricular ejection fraction is 36% by Dowd's biplane. The anterolateral and inferolateral barahona are akinetic. The anterior wall is hypokinetic. -Right ventricle is mildly dilated. Systolic function is normal. -No significant valve disease. -See report for additional findings. No prior study is available. Procedure Complete-[id number]. Image enhancement Optison was used for left [...] NSTEMI (non-ST elevation myocardial infarction) Exam Location: [facility]. Conclusions -Left ventricular systolic function is moderately reduced. The leftventricular ejection fraction is 36% by Dowd's biplane. The anterolateral andinferolateral barahona are akinetic. The anterior wall is hypokinetic. -Right ventricle is mildly dilated. Systolic function is normal. -No significant valve disease. -See report for additional findings. No prior study is available. Procedure Complete-[id number]. Image enhancement Optison was used for left [...] purpose is for storage only. Deacon Watters [employer] IMG FILM LIBRARY O RDERABLES [place], [place] * External Cardiology Result (06/29/2024 4:33 PM EDT) Anatomical Region Laterality Modality Other Historical Provider EXTERNAL CARDIOLO GY RESULT * Campylobacter Antigen (06/07/2024 9:00 AM EDT) Campylobacter Ag Immunoassay Negative for Campylobacter Antigen [facility] Stool 06/07/2024 9:00 AM EDT 06/07/2024 1:32 PM EDT Narrative Resulting Agency Comment Spec In Lab Marcelle Weinberg [employer] MICROBIOLOGY - GE NERAL ORDERABLES Performing Organization Address [facility] [[email or web address]] Co de Phone Number [facility] [address] * Shiga Toxin Detection (06/07/2024 9:00 AM EDT) Shiga Toxin Assay EIA Negative for Shiga Toxin 1 EIA Negative for Shiga Toxin 2 [facility] Stool 06/07/2024 9:00 AM EDT 06/07/2024 1:32 PM EDT Narrative Resulting Agency Comment Spec In Lab Marcelle Weinberg [employer] MICROBIOLOGY - GE NERAL ORDERABLES Performing Organization Address City/[facility]/ZIP Co de Phone Number [facility] [address] * Stool culture (06/07/2024 9:00 AM EDT) Stool Culture No enteric pathogens isolated [facility] Stool 06/07/2024 9:00 AM EDT 06/07/2024 1:32 PM EDT Narrative Resulting Agency Comment Spec In Lab Marcelle Weinberg [employer] MICROBIOLOGY - GE NERAL ORDERABLES Performing Organization Address City/[facility]/ZIP Co de Phone Number [facility] [place] [address] * C. Difficile Screen (06/06/2024 5:30 PM [...] Agency Comment Spec In Lab Marcelle Weinberg [employer] MICROBIOLOGY - GE NERAL ORDERABLES Performing Organization Address [facility] [[email or web address]] Co de Phone Number [facility] [place] [address] * (ABNORMAL) Calprotectin, Stool (06/06/2024 5:30 PM EDT) Calprotectin, Stool 112(H) <=79 mcg/g [facility] Comment: Calprotectin Concentration ? Interpretation ? < 80 mcg/g ?Normal ? 80 ? 160 mcg/g ?Borderline ? >160 mcg/g ?Elevated Stool 06/06/2024 5:30 PM EDT 06/07/2024 1:07 PM EDT Narrative Resulting Agency Comment Spec In Lab Marcelle Weinberg [employer] BODY FLUIDS AND S TOOLS ORDERABLES Performing Organization Address [facility] de Phone Number [facility] [place] [address] * (ABNORMAL) CRP, acute inflammation (06/06/2024 9:04 AM EDT) C-Reactive Protein 6.4(H) <=4.9 mg/L [facility] Blood 06/06/2024 9:04 AM EDT 06/06/2024 9:12 AM EDT Narrative Resulting Agency Comment Spec In Lab Marcelle Weinberg [employer] CHEMISTRY ORDERAB LES [facility] [place] [address] * Differential, Automated (06/06/2024 9:04 AM EDT) Neutrophil % 70.3 % [facility] Neutrophil Absolute 4.36 1.70 - 6.10 x10(3)/[facility] LABOR[facility] Lymph % 19.7 % [facility] Lymphocytes Abs 1.2 0.9 - 3.2 x10(3)/[facility] LABOR[facility]ORY Monocyte % 7.7 % [facility] Monocyte Abs 0.5 0.3 - 0.9 x10(3)/[facility] LABORATORY Eos % 1.3 % [facility] Eosinophils Abs 0.1 0.0 - 0.4 x10(3)/[facility] LABOR[facility]ORY Basophil % 0.5 % [facility] Baso Absolute [...] x10(3)/[facility] Blood 06/06/2024 9:04 AM EDT 06/06/2024 9:12 AM EDT Narrative Resulting Agency Comment Spec In Lab Marcelle Weinberg [employer] HEMATOLOGY ORDERA BLES Performing Organization Address City/[facility]/ZIP Co de Phone Number [facility] [place] [address] * Sedimentation rate (06/06/2024 9:04 AM EDT) [...] APRN HEMATOLOGY ORDERA BLES Performing Organization Address [facility] [[email or web address]] Co de Phone Number [facility] [place] [address] * Comprehensive metabolic panel (non-fasting) (06/06/2024 9:04 AM EDT) Glucose 136 65 - 199 mg/dL [facility] Comment:Diabetes: >=200 mg/d L plus symptoms Blood Urea Nitrogen 16 10 - 20 mg/dL [facility] Creatinine 1.05 0.80 - 1.50 mg/dL [facility] Sodium 144 135 - 145 mmol/L [facility] Potassium 4.2 3.5 - 5.0 mmol/L [facility] Comment: Please note: ??Patients with WBC >100,000 may have falsely elevated Potassium levels. ??For accurate Potassium quantification in these patients send serum separator tube (gold top) for subsequent determinations. ??Contact the Clinical Chemistry Laboratory if there are any questions. Chloride 107 98 - 107 mmol/L [facility] Carbon Dioxide 26 22 - 31 mmol/L [facility] Anion Gap 11 5 - 15 mmol/L [facility] Calcium 9.8 8.5 - 10.5 mg/dL [facility] Protein, Total 7.6 6.1 - 8.0 g/dL [facility] Albumin 4.1 3.2 - 5.2 g/dL [facility] Aspartate Aminotransferase 16 0 - 39 unit/L [facility] Alanine Aminotransferase 18 0 - 55 unit/L [facility] Alkaline Phosphatase 71 40 - 130 unit/L [facility] Bilirubin, Total 0.5 0.2 - 1.3 mg/dL [facility] Est Glomerular Filtration Rate 74 >=60 mL/min/1. 73 m?? [facility] [...] Agency Comment Spec In Lab Marcelle Weinberg [employer] CHEMISTRY ORDERAB LES Performing Organization Address City/State/[facility] [[email or web address]] Co de Phone Number [facility] [address] * COLONOSCOPY (01/20/2024 10:01 AM EST) COLONOSCOPY [facility] Procedure Date: 01/20/2024 10:01 AM ? Patient Name: Naya Rodriguez ? Date of : 1950 ? Age: 73 ? Order #: [id number] ? Instrument Name: [id number] ? Procedure: ? Colonoscopy Indications: ? Follow-up [...] ? physician, the nurse and the ? tube test technician in the pre-procedure ? area [...] SIGMOIDOSCOPY (03/16/2012 1:15 PM EDT) FLEXIBLE SIGMOIDOSCOPY [facility] Patient Name: Naya Rodriguez ? Procedure Date: 03/16/2012 1:15 PM ? N: [id number] ? Date of : 1950 ? Age: 61 ? Order #: [id number] ? Procedure: ? Flexible Sigmoidoscopy Indications: ? pt with active UC, assess severity ? prior to entry in MTX study Providers: ? Enrico Tellez MD, April Augustine ? RONY Archibald, Kingsley Oneal, ? Job Molder Referring MD: ?Maximilian Fall MD Requesting Provider: [...] Documents on File Type Date Recorded Patient Manager Traffic Expl anation Advance Directives and Livin g [...] capacity to make decision: Yes Care Teams Head Of Business Development Relationship Specialty Start Date End Date Deacon Watters, [employer] [address] [place] [address] PCP - General Family Medicine 02/17/22
--- OUTSIDE RECORDS SUMMARY | 2024-07-22 13:04 | XMS_ITS | Encounter Summary ---
Author Organization [facility] Address [address] [place] [address] Care Team Providers Care Tank Assembler Name Role Phone Unavailable Primary Care Provider Unavailabl e Encounter Details Date Type Department Care Team (Late st Contact Info) Description 10/09/2008 Before PRISM Converted Visit (Maple) [facility] - Maple conversion [address] [place] [address] Yeni Agustin MD [address] [place] [id number] Social History Tobacco Use Types Packs/Day Years [...] ? RODRIGUEZ, BRIAN ? Accession #: ? [id number] ? : ? 1950 (Age: 58) ??M [...] PATHOLOGY ORDERABLE [facility] [address] [place] [address] documented in this encounter Visit Diagnoses Not on filedocumented in this encounter
--- OUTSIDE RECORDS SUMMARY | 2024-07-22 13:04 | XMS_ITS | Encounter Summary ---
Author Organization [facility] Address [facility] [place] [address] Care Team Providers Care Millinery Copyist Name Role Phone Deacon Watters APRN Primary Care Provider [phone]- [phone] Reason for Referral * Consultation (Routine) - Authorized Specialty Diagnoses / Procedures Referred By Contac t Referred To Contact Cardiology Diagnoses NSTEMI (non-ST elevated myocardial infarction) Ronel Hensley MD [facility] [place] [address] [facility] Cardiology [address] [place] [phone] Referral ID Status Reason Start Date Expiration Date Visits Requested Visits Authorized [id number] Authorized Consult, Test & Treat 07/04/2024 07/04/2025 1 1 * Consultation (Routine) - Authorized Specialty Diagnoses / Procedures Referred By Contac t Referred To Contact Cardiology Diagnoses NSTEMI (non-ST elevated myocardial infarction) Armond Denny MD [facility] [place] [address] Cardiac Rehab, [facility] [address] [place] [address] [place] [address] Referral ID Status Reason Start Date Expiration Date Visits Requested Visits Authorized [id number] Authorized Consult, Test & Treat 07/04/2024 12/31/2024 36 36 Reason for Visit * Auth/Cert (Routine) Specialty Diagnoses / Procedures Referred By Contac t Referred To Contact Diagnoses NSTEMI (non-ST elevated myocardial infarction) NSTEMI Triston Godinez MD [facility] [place] [address] [facility] Referral ID Status Reason Start Date Expiration Date Visits Re quested Visits Authorized [id number] 1 1 Encounter Details Date Type Department Care Team (Latest Contact Info) Description 06/30/2024 3:44 PM EDT - 07/04/2024 3:25 PM EDT Hospital Encounter Heart and Vascular Unit Level 3 Wing B at [place] [phone] Triston Godinez MD [facility] [place] [address] Armond Denny MD [facility] [place] [address] NSTEMI (non-ST elevated myocardial infarction) (Primary Dx) Discharge Disposition: Home Social History Tobacco Use Types Packs/Day Years Used Date Smoking Tobacco: Former Cigarettes 4 30 1 12/01/1961 - 10/01/1992 Smokeless Tobacco: Former Chew Comments:Denies vaping Alcohol Use Standard Drinks/Week Comments Yes 0 (1 standard drink = 0.6 oz pur e alcohol) twice a year [facility] Utilities Answer Date Recorded In the past 12 months has [employer] electric, gas, oil, or water company threatened [...] in a longterm (including now)? No 07/01/2024 DH IPV Inpatient [...] HLD, migraines, DM2, and UC who [facility] and was transferred to [facility] for NSTEMI found to have HFrEF. Course [...] He was discharged with 6 days of [id number] mg BID after receiving 1 day of [...] due to Jardiance allergy. PCP Contact Information: Deaocn Watters, CHIEF PILOT [address] / [facility] [id number] Discharge Diagnoses (Hospital Problems) and Secondary Diagnoses [...] #HTN #HLD Mr. Rodriguez was transferred to [facility] for NSTEMI with trops of 4143 and 20,000 at the OSH, where he was loaded with ASA, plavix and started on heparin gtt. At [facility], his trops trended down to 1234. In [...] dose. Would consider changes to his regimen snf to reduce the A1c. #GERD He takes [...] to exclude urinary tract infection. Cardiac Catheterization: ([facility]) RIGHT dominance LVEDP 10 Artery Lesion [...] 9:00 AM Dion Osullivan MD Gastroenterology at [facility] Arrive at: Attraction Worker Area [phone] 09/01/2024 11:20 AM Gómez Mercer MD Dermatology at [facility] Arrive at: Attraction Worker [address] [place] [phone] 09/21/2024 2:45 PM Trung Hoyos MD Pain and Spine Center at [facility] Arrive at: Attraction Worker Area [phone] Future Orders Complete By Expires Referral to Cardiac Rehab [[id number] Custom] As directed Process Instructions: If no progress note charted, please enter Clinical details in comments. Scheduling Instructions: Questions: My question or request is: NSTEMI, PCI, HFrEF- cardiac rehab at [facility] Referral to Cardiology [REF12 Custom] As [...] appointments: During 8am-5pm Thursday through Thursday call [phone] to speak with a nurse in the cardiology clinic All other times call [phone] and ask to speak to the shot blast equipment operator prescription benefit specialist. Home oxygen therapy: none Arrangements for VNA/home care: none Follow up Appointments: Future Appointments Date Time Provider Department Center 08/15/2024 9:00 AM Dion Osullivan MD [facility] 09/01/2024 11:20 AM Gómez Mercer MD [facility] 09/21/2024 2:45 PM Trung Hoyos MD [facility] Pain Sp [facility] Patient Scheduling Manager: [facility] - referral sent and they are aware you need an appointment. If they do not reach out to you with an appointment in 1 week, call and ask for the cardiology clinic. PCP: Deacon Watters APRN at [phone] on July 08 at 4 PM Your Inpatient Doctor(s) at [facility]: Armond Denny MD - Attending physician Your Primary Care Provider: Deacon Watters APRN [address] / [facility] [phone] If you have non-emergent questions between now and the time of your follow up appointments: During 8am-5pm Thursday through Thursday call [phone] to speak with a nurse in the cardiology clinic All other times call [phone] and ask to speak to the shot blast equipment operator prescription benefit specialist. Provider Contact Information: Deacon Watters APRN [address] / [facility] [id number] Discharge References/Attachments: Discharge References/Attachments None For questions regarding this document or issues relating to this hospitalization on the Medical Service, please contact your inpatient physician through the [facility] Yeast Stacker . Issues afterhours and on weekends will be handled by the Patient Scheduling Manager staff on-call. Signed: Ronel Hensley MD Internal [...] appointments: During 8am-5pm Thursday through Thursday call [phone] to speak with a nurse in the cardiology clinic All other times call [phone] and ask to speak to the shot blast equipment operator prescription benefit specialist. Home oxygen therapy: none Arrangements for VNA/home care: none Follow up Appointments: Future Appointments Date Time Provider Department Center 08/15/2024 9:00 AM Dion Osullivan MD [facility] GASTRO [facility] 09/01/2024 11:20 AM Gómez Mercer MD [facility] 09/21/2024 2:45 PM Trung Hoyos MD [facility] Pain Sp [facility] Patient Scheduling Manager: [facility] - referral sent and they are aware you need an appointment. If they do not reach out to you with an appointment in 1 week, call and ask for the cardiology clinic. PCP: Deacon Watters APRN at [phone] on July 08 at 4 PM Your Inpatient Doctor(s) at [facility]: Armond Denny MD - Attending physician Your Primary Care Provider: Deacon Watters APRN [address] [facility] [address] [email or web address] / [facility] [id number] If you have non-emergent questions between now and the time of your follow up appointments: During 8am-5pm Thursday through Thursday call [phone] to speak with a nurse in the cardiology clinic All other times call [phone] and ask to speak to the shot blast equipment operator prescription benefit specialist. documented in this encounter Medications at [...] migraines, DM2, and UC whowas transferred to [facility] for NSTEMI and now found to have [...] 3.66) performed by Dion Osullivan MD at [facility] PRO COLONOSCOPY, BIOPSY N/A 02/22/2019 COLONOSCOPY FLEXIBLE, WITH BX (WRVU 3.66) performed by Dion Osullivan MD at [facility] PRO COLONOSCOPY, BIOPSY N/A 03/28/2022 COLONOSCOPY FLEXIBLE, WITH BX (WRVU 3.66) performed by Mona Turner MD at [facility] PRO COLONOSCOPY, BIOPSY N/A 01/20/2024 COLONOSCOPY FLEXIBLE, WITH BX (WRVU 3.56) performed by Anthony Hamlin MD at [facility] PRO COLONOSCOPY, DIAGNOSTIC 11/27/2011 COLONOSCOPY, DIAGNOSTIC performed by Dion OSULLIVAN at [facility] PRO COLONOSCOPY, DIAGNOSTIC 07/13/2014 COLONOSCOPY, DIAGNOSTIC performed by Dion Osullivan MD at [facility] PRO COLONOSCOPY, REMV LESN, SNARE N/A 02/22/2019 COLONOSCOPY, POLYPECTOMY, REMOVAL LESION BY SNARE (WRVU 4.67) performed by Dion Osullivan MD at [facility] PRO COLONOSCOPY, REMV LESN, SNARE N/A 02/26/2021 COLONOSCOPY, POLYPECTOMY, REMOVAL LESION BY SNARE (WRVU 4.67) performed by Dion Osullivan MD at [facility] PRO SIGMOIDOSCOPY, DIAGNOSTIC 03/16/2012 FLEXIBLE SIGMOIDOSCOPY performed by YUDI MALLOY at [facility] PRO UPPER GI ENDOSCOPY, DIAGNOSTIC N/A 04/28/2019 EGD, UPPER GI ENDOSCOPY performed by Iza Coates MD at [facility] UPPER GI ENDOSCOPY, EXAM 10/01/2012 UPPER GI ENDOSCOPY performed by Dion OSULLIVAN at [facility] Social History: Home set-up: Lives on the first floor of a two level home in [place], [place] Stairs: FOS with bilateral rails vs a few stairs through the back to the first level, 8 step between rooms Bathroom Set-up: Tub-shower with grab bars, no shower chair Baseline Mobility: Ambulates without an assistive device. Independent with I/ADLs, including driving. 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 He enjoys taking care of his property including [employer] water systemsing wood. He sleeps in a flat bed. 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 [...] Moderate Complexity Evaluation Qing Braxton, PT Pager: [phone] Physical Therapy Inpatient Rehabilitation Department * Day, Tray Bassett OT - 07/04/2024 9:40 AM EDT Occupational Therapy Evaluation Patient profile: Brian Rodriguez is a 74 y.o. male admitted on 06/30/2024 with PMHx of HTN, HLD, migraines, DM2, and UC who was transferred to [facility] for NSTEMI and now found to have HFrEF. Pt now s/p PCIto LCX. Past Medical History: Diagnosis Date Asthma 10/01/2011 Diabetes mellitus 10/01/2011 GERD (gastroesophageal reflux disease) 10/01/2011 Hearing loss 10/01/2011 Hydrocele 10/01/2011 Ulcerative colitis 10/01/2011 Past Surgical History: Procedure Laterality Date PRO COLONOSCOPY, BIOPSY N/A 02/12/2017 COLONOSCOPY FLEXIBLE, WITH BX (WRVU 3.66) performed by Dion Osullivan MD at [facility] PRO COLONOSCOPY, BIOPSY N/A 02/22/2019 COLONOSCOPY FLEXIBLE, WITH BX (WRVU 3.66) performed by Dion Osullivan MD at [facility] PRO COLONOSCOPY, BIOPSY N/A 03/28/2022 COLONOSCOPY FLEXIBLE, WITH BX (WRVU 3.66) performed by Mona Turner MD at [facility] PRO COLONOSCOPY, BIOPSY N/A 01/20/2024 COLONOSCOPY FLEXIBLE, WITH BX (WRVU 3.56) performed by Anthony Hamlin MD at [facility] PRO COLONOSCOPY, DIAGNOSTIC 11/27/2011 COLONOSCOPY, DIAGNOSTIC performed by Dion OSULLIVAN at [facility] PRO COLONOSCOPY, DIAGNOSTIC 07/13/2014 COLONOSCOPY, DIAGNOSTIC performed by Dion Osullivan MD at [facility] PRO COLONOSCOPY, REMV LESN, SNARE N/A 02/22/2019 COLONOSCOPY, POLYPECTOMY, REMOVAL LESION BY SNARE (WRVU 4.67) performed by Dion Osullivan MD at [facility] PRO COLONOSCOPY, REMV LESN, SNARE N/A 02/26/2021 COLONOSCOPY, POLYPECTOMY, REMOVAL LESION BY SNARE (WRVU 4.67) performed by Dion Osulilvan MD at [facility] PRO SIGMOIDOSCOPY, DIAGNOSTIC 03/16/2012 FLEXIBLE SIGMOIDOSCOPY performed by YUDI MALLOY at [facility] PRO UPPER GI ENDOSCOPY, DIAGNOSTIC N/A 04/28/2019 EGD, UPPER GI ENDOSCOPY performed by Iza Coates MD at [facility] UPPER GI ENDOSCOPY, EXAM 10/01/2012 UPPER GI ENDOSCOPY performed by Dion OSULLIVAN at [facility] Social History: Home set-up: Lives on the first floor of a two level home in [place], [place] Stairs: FOS with bilateral rails vs a few stairs through the back to the first level, 8 step between rooms Bathroom Set-up: Tub-shower with grab bars, no shower chair Baseline Mobility: Ambulates without an assistive device. Independent with I/ADLs, including driving. 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 He enjoys taking care of his property including [employer] water systemsing wood. He sleeps in a flat bed. 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 [...] and measurable assessment of functional outcome. Pager: [phone] Tray Bassett. WILLY LoganR/L Occupational Therapy Rehabilitation Department * Armond Denny MD - 07/03/2024 7:03 AM EDT Inpatient Cardiology Progress Note Patient Name: Brian Rodriguez Date of Admission: 06/30/2024 ( Hospital Day 3 days ) Service: S2 ID: Brian Rodriguez is a 74 y.o. male with PMHx of HTN, HLD, migraines, DM2, and UC who presented [facility] for chest pain and was transferred to [facility] for NSTEMI found to have HFrEF. Active [...] 1809 PROBNP 2,259* Trops: OSH 4143 >20,000>> [facility] 1234 and 1274 06/30 Telemetry: some PVCs [...] to exclude urinary tract infection. Cardiac Catheterization: ([facility]) RIGHT dominance LVEDP 10 Artery Lesion [...] DM2, and UC who was transferred to [facility] for NSTEMI and now found to have [...] 7.3. Will need outpatient follow up for snf changes. - holding home glipizide and metformin [...] Katia Reid MD Internal Medicine PGY-3 Pager [phone], M1-S2 Service CARDIOLOGY STAFF NOTE I have personally interviewed and examined the patient and reviewed appropriate data, including labs, ECGs and other diagnostic studies. I agree with the principal findings documented above. The assessment and plan were formulated in discussion with me. Armond Denny MD, [facility], [facility] Staff Patient Scheduling Manager federal aid coordinator * Armond Denny MD - 07/02/2024 6:17 AM EDT Inpatient Cardiology Progress Note Patient Name: Brian Rodriguez Date of Admission: 06/30/2024 ( Hospital Day 2 days ) Service: S2 ID: Brian Rodriguez is a 74 y.o. male with PMHx of HTN, HLD, migraines, DM2, and UC who presented [facility] for chest pain and was transferred to [facility] for NSTEMI found to have HFrEF. Active [...] 1809 PROBNP 2,259* Trops: OSH 4143 >20,000>> [facility] 1234 and 1274 06/30 Telemetry: some PVCs [...] to exclude urinary tract infection. Cardiac Catheterization: ([facility]) RIGHT dominance LVEDP 10 Artery Lesion [...] DM2, and UC who was transferred to [facility] for NSTEMI and now found to have [...] 7.3. Will need outpatient follow up for snf changes. - holding home glipizide and metformin [...] Ronel Hensley MD Internal Medicine PGY-1 Pager [phone], M1-S2 Service CARDIOLOGY STAFF NOTE I have personally interviewed and examined the patient and reviewed appropriate data, including labs, ECGs and other diagnostic studies. I agree with the principal findings documented above. The assessment and plan were formulated in discussion with me. Armond Denny MD, [facility], [facility] Staff Patient Scheduling Manager federal aid coordinator * Armond Denny MD - 07/01/2024 6:15 AM EDT Inpatient Cardiology Progress Note Patient Name: Brian Rodriguez Date of Admission: 06/30/2024 ( Hospital Day 1 day ) Service: S2 ID: Brian Rodriguez is a 74 y.o. male with PMHx of HTN, HLD, migraines, DM2, and UC who presented [facility] for chest pain and was transferred to [facility] for NSTEMI found to have HFrEF. Active Problems: Active Hospital Problems Diagnosis NSTEMI (non-ST elevated myocardial infarction) Resolved Hospital Problems No resolved problems to display. 24 hr events: Yesterday - transferred to [facility] for NSTEMI Overnight - no acute events [...] 1809 PROBNP 2,259* Trops: OSH 4143 >20,000>> [facility] 1234 and 1274 last night Telemetry: NSR [...] DM2, and UC who was transferred to [facility] for NSTEMI and now found to have [...] 7.3. 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 - holding home glipizide and metformin [...] Ronel Hensley MD Internal Medicine PGY-1 Pager [phone], M1-S2 Service CARDIOLOGY STAFF NOTE I have personally interviewed and examined the patient and reviewed appropriate data, including labs, ECGs and other diagnostic studies. I agree with the principal findings documented above. The assessment and plan were formulated in discussion with me. Plan for cath today and introduction of full complement of medical therapies for ACS/HFrEF. Armond Denny MD, [facility], [facility] Staff Patient Scheduling Manager federal aid coordinator documented in this encounter H&P Notes * Lynette Díazsera Woodard, CHIEF PILOT - 07/01/2024 9:33 AM EDT Images from [...] PCP: Deacon Watters APRN PCP phone #: [phone] ID/Chief Complaint: Brian Rodriguez is a 74 y.o. male with PMHx of HTN, HLD, migraines, DM2, and UC who presented to [facility] for chest pain and was transferred to [facility] for NSTEMI. History of Present Illness: Brian [...] infarction) Ulcerative colitis Colonoscopy 04/08/10 (Dr. Gomes [facility]) - inflammation only within the rectum and sigmoid; extent of the exam was to the hepatic flexure; biopsies proximal to the sigmoid nl Repeat exam 11/27/11 ([facility]): mildly active colitis in the sigmoid colon [...] ascending colon. Several HPs and one TA. [place] 03/2022 - [place] 1 limited to rectosigmoid, [...] in the last 7068 hours. Invalid input(s): [id number] Heme: No results for input(s): LDH, HAPTOGLOBIN, [...] DM2, and UC who was transferred to [facility] for NSTEMI. Given Brian's presentation and his [...] Admit to Cardiology, S2 Team Pager # [phone] #NSTEMI > trops elevated to 4143 and 20,000 at OSH - s/p ASA and Plavix load - heparin gtt - continue 81 mg ASA - continue 75 mg plavix - repeat EKG with posterior leads - restarted atorvastatin 80 mg - TTE pending - trending trops here - NPO at midnight for [facility] tomorrow #Migraines - holding propranolol for [...] Outcome: Outcome (s) achieved 07/04/2024 1234 by Jneny Reddy RN Outcome: Ongoing (Interventions Implemented as [...] Operative Note Patient Name: Brian Rodriguez : [id number] MR#: [id number] Case Date: 07/01/2024 Surgeon: Surgeons and Role: [...] receiving care in [place] must abide by [place] law. The hierarchy [...] (i) The agent with financial power of business attorney or a conservator appointed in accordance [...] homeless or living in a longterm (including now)?: No In the past 12 [...] Current DME: none Home Address confirmed as: [address] [place] [address] Social & Family Supports: All names listed below confirmed with patient as current and correct Extended Emergency Contact Information Primary Emergency Contact: Sabrina Eisenberg Address: [address] [place] [phone] [facility] Mobile Relation: Child Secondary Emergency Contact: [...] Yes ; Prescription Coverage: Yes Preferred Pharmacy: [id number] - [facility], [place] - [address] [facility] [address] [place] [address] Status: Patient is a : No Primary Care Provider confirmed: Deacon Watters, JAZMINE [phone] Potential Needs for Transition of Care: none [...] 9:00 AM EDT Office [place] [address] Dion Osullivan MD [facility] [place] [address] 09/01/2024 9:40 AM EDT Office Visit Cardiology at [address] [phone] Franky Shaver MD [facility] [place] [address] 09/01/2024 11:20 AM EDT Office Visit Dermatology at [place] [address] [place] [phone] Gómez Mercer MD [facility] [place] [address] 09/21/2024 2:45 PM EDT Office Visit Pain [place] [phone] Trung Hoyos MD [facility] [place] [address] Scheduled Referrals Name Type Priority Associated Diagnoses [...] PM EDT URINALYSIS BEAKER MICROSCPIC REFLEX EXAM ([facility]) Routine 07/03/2024 3:02 PM EDT URINALYSIS [...] - 199 mg/dL 07/04/2024 2:[address] [facility] Comment:Supplemental ranges: <140 mg/dL before meals <180 mg/dL all other times of the day. Blood CAPILLARY BLOOD / Unknown 07/04/2024 1:49 PM EDT 07/04/2024 2:12 PM EDT Armond Denny MD POINT OF CARE TEST O CEE Performing Organization Address City/[facility]/ZIP Co de Phone Number [facility] [place] [place] [address] * (ABNORMAL) POC, GLUCOSE (07/04/2024 11:55 AM EDT) Glucometer, POC 287(H) 65 - 199 mg/dL 07/04/2024 11:[address] [facility] Comment:Supplemental ranges: <140 mg/dL before meals <180 mg/dL all other times of the day. Blood CAPILLARY BLOOD / Unknown 07/04/2024 11:55 AM EDT 07/04/2024 11:55 AM EDT Armond Denny MD POINT OF CARE TEST O RDERAOMAR Performing Organization Address City/[facility]/ZIP Co de Phone Number [facility] [place] [address] * (ABNORMAL) POC, GLUCOSE (07/04/2024 11:18 AM EDT) Glucometer, POC 259(H) 65 - 199 mg/dL 07/04/2024 11:[address] [facility] Comment:Supplemental ranges: <140 mg/dL before meals <180 mg/dL all other times of the day. Blood CAPILLARY BLOOD / Unknown 07/04/2024 11:18 AM EDT 07/04/2024 11:32 AM EDT Armond Denny MD POINT OF CARE TEST O RDERABLES Performing Organization Address City/[facility]/ZIP Co de Phone Number [facility] [place] [address] * POC, GLUCOSE (07/04/2024 8:04 AM EDT) Glucometer, POC 111 65 - 199 mg/dL 07/04/2024 8:[address] [facility] Comment:Supplemental ranges: <140 mg/dL before meals <180 mg/dL all other times of the day. Blood CAPILLARY BLOOD / Unknown 07/04/2024 8:04 AM EDT 07/04/2024 8:04 AM EDT Armond Denny MD POINT OF CARE TEST O RDERABLES Performing Organization Address [facility] Co de Phone Number [facility] [place] [address] * Magnesium (07/04/2024 1:43 AM EDT) Magnesium 0.80 0.69 - 1.07 mMol/L 07/04/2024 2:[address] [facility] Blood VENOUS BLOOD SPECIMEN / Unknown IP Care Team Draw / Unknown 07/04/2024 1:43 AM EDT 07/04/2024 1:52 AM EDT Triston Godinez MD CHEMISTRY ORDERABLES Performing Organization Address City/[facility]/ZIP Co de Phone Number [facility] [place] [place] [address] * (ABNORMAL) Basic Metabolic Panel (07/04/2024 1:43 AM EDT) Glucose 156 65 - 199 mg/dL 07/04/2024 2:23 AM [facility] Comment:Glucose Concentratio n >=200 mg/dL plus symptoms is consistent with Diabetes Mellitus. Blood Urea Nitrogen 12 10 - 20 mg/dL 07/04/2024 2:23 AM [facility] Creatinine 1.27 0.80 - 1.50 mg/dL 07/04/2024 2:23 AM [facility] Sodium 141 135 - 145 mMol/L 07/04/2024 2:23 AM [facility] Potassium 3.9 3.5 - 5.0 mMol/L 07/04/2024 2:23 AM [facility] Chloride 108(H) 98 - 107 mMol/L 07/04/2024 2:23 AM [facility] Carbon Dioxide 22 22 - 31 mMol/L 07/04/2024 2:23 AM [facility] Anion Gap 11 5 - 15 mMol/L 07/04/2024 2:23 AM [facility] Calcium 9.4 8.5 - 10.5 mg/dL 07/04/2024 2:23 AM [facility] Est Glomerular Filtration Rate - Male 59 mL/min/1. 73 m?? 07/04/2024 2:23 AM [facility] Comment: This patient's estimated GFR [...] AM EDT Triston Godinez MD CHEMISTRY ORDERABLES [facility] [place] [address] * (ABNORMAL) CBC (with Diff) (07/04/2024 1:43 AM EDT) White Blood Cell 5.05 4.00 - 9.50 x10(3)/mc L 07/04/2024 2:[address] [facility] Red Blood Cell 3.11(L) 4.58 - 5.54 x10(6)/mc L 07/04/2024 2:[address] [facility] Hemoglobin 10.5(L) 13.7 - 16.5 g/dL 07/04/2024 2:[address] [facility] Hematocrit 31.5(L) 40.5 - 48.5 % 07/04/2024 2:[address] [facility] Mean Cell Volume 101.3(H) 82.9 - 93.1 fL 07/04/2024 2:[address] [facility] Mean Cell Hemoglobin 33.8(H) 27.5 - 32.1 pg 07/04/2024 2:[address] [facility] Mean Cell Hemoglobin Concentration 33.3 32.0 - 35.7 g/dL 07/04/2024 2:[address] [facility] Platelet 145 145 - 357 x10(3)/mc L 07/04/2024 2:[address] [facility] Mean Platelet Volume 11.5 7.6 - 12.9 fL 07/04/2024 2:[address] [facility] RDW Standard Deviation 48.2(H) 36.0 - 45.0 fL 07/04/2024 2:[address] [facility] RDW coefficient of variation 13.1 11.4 - 13.8 % 07/04[facility]24 [facility] NRBC% auto 0.0 % 07/04/2024 2:00 AM [facility] NRBC Absolute 0.00 0.00 - 0.00 x10(3)/mc L 07/04/2024 2:00 AM [facility] Neutrophil % 65.9 % 07/04/2024 2:00 AM [facility] Neutrophil Absolute 3.33 1.70 - 6.10 x10(3)/mc L 07/04/2024 2:00 AM [facility] Lymph % 20.8 % 07/04/2024 2:00 AM [facility] Lymph Absolute 1.05 0.90 - 3.20 x10(3)/mc L 07/04/2024 2:00 AM [facility] Monocyte % 9.3 % 07/04/2024 2:00 AM [facility] Monocyte Absolute 0.47 0.30 - 0.90 x10(3)/mc L 07/04/2024 2:00 AM [facility] Eos % 3.0 % 07/04/2024 2:00 AM [facility] Eos Absolute 0.15 0.00 - 0.40 x10(3)/mc L 07/04/2024 2:00 AM [facility] Basophil % 0.6 % 07/04/2024 2:00 AM [facility] Baso Absolute 0.03 0.00 - 0.10 x10(3)/mc L 07/04/2024 2:00 AM [facility] Immature Gran % 0.4 % 2:00 AM [facility] Immature Gran Absolute 0.02 0.00 - 0.04 x10(3)/mc L 07/04/2024 2:00 AM [facility] Blood VENOUS BLOOD SPECIMEN / Unknown IP Care Team Draw / Unknown 07/04/2024 1:43 AM EDT 07/04/2024 1:52 AM EDT Triston Godinez MD HEMATOLOGY ORDERABLE S Performing Organization Address [facility] Co de Phone Number [facility] [place] [address] * (ABNORMAL) POC, GLUCOSE (07/03/2024 8:02 PM EDT) Glucometer, POC 251(H) 65 - 199 mg/dL 07/03/2024 8:[address] [facility] Comment:Supplemental ranges: <140 mg/dL before meals <180 mg/dL all other times of the day. Blood CAPILLARY BLOOD / Unknown 07/03/2024 8:02 PM EDT 07/03/2024 8:02 PM EDT Armond Denny MD POINT OF CARE TEST O CEE Performing Organization Address [facility] Co de Phone Number [facility] [place] [address] * (ABNORMAL) POC, GLUCOSE (07/03/2024 4:47 PM EDT) Glucometer, POC 217(H) 65 - 199 mg/dL 07/03/2024 4:[address] [facility] Comment:Supplemental ranges: <140 mg/dL before meals <180 mg/dL all other times of the day. Blood CAPILLARY BLOOD / Unknown 07/03/2024 4:47 PM EDT 07/03/2024 4:47 PM EDT Armond Denny MD POINT OF CARE TEST O CEE Performing Organization Address [facility] Co de Phone Number [facility] [place] [address] * (ABNORMAL) Urine culture (07/03/2024 3:02 PM EDT) Urine Culture 50,000-99,000 cfu/ml Escherichia coli(A) VITEK 2 METHOD 07/05/2024 8:[address] [facility] Urine Culture 10,000-49,000 cfu/ml mixed mucosal harika VITEK 2 METHOD 07/05/2024 8:[address] [facility] Urine URINE SPECIMEN OBTAINED BY [...] Sensitive Armond Denny MD MICROBIOLOGY - [facility] AL ORDERABLES [facility] [place] [address] * (ABNORMAL) Urinalysis Microscopic Reflex to Culture (07/03/2024 3:02 PM EDT) RBC, Urine 2 0 - 3 /HPF 07/03/2024 3:[address] [facility] WBC, Urine 55(H) 0 - 3 /HPF 07/03/2024 3:[address] [facility] Squamous Epithelial Cells, Urine 1 0 - 5 /HPF 07/03/2024 3:[address] [facility] Hyaline Casts, Urine 3(H) 0 - 2 /LPF 07/03/2024 3:[address] [facility] Comment 07/03/2024 3:[address] [facility] Comment:Interpret results wi th caution, microscopic results are from a suboptimal specimen. Bacteria, Urine Many(A) None /HPF 3:[address] [facility] Urine URINE SPECIMEN OBTAINED BY CLEAN CATCH PROCEDURE / Unknown Non Blood Collection / Unknown 07/03/2024 3:02 PM EDT 07/03/2024 3:13 PM EDT Armond Denny MD URINE ORDERABLES Performing Organization Address City/[facility]/ZIP Co de Phone Number [facility] [place] [address] * Urinalysis Microscopic with Reflex to Culture (07/03/2024 3:02 PM EDT) Urine URINE SPECIMEN OBTAINED BY CLEAN CATCH PROCEDURE / Unknown Non Blood Collection / Unknown 07/03/2024 3:02 PM EDT 07/03/2024 3:13 PM EDT Armond Denny MD URINE ORDERABLES Performing Organization Address [facility]/ZIP Co de Phone Number [facility] [place] [address] * (ABNORMAL) Urinalysis with reflex Culture (07/03/2024 3:02 PM EDT) Glucose, Urine Dipstick Negative Negative 07/03/2024 3:[address] [facility] Protein, Urine Dipstick 30 mg/dL(A) Negative 07/03/2024 3:[address] [facility] Bilirubin, Urine Dipstick Small(A) Negative 07/03/2024 3:[address] [facility] Comment:Clinical correlation required for positive Urine Bilirubin results as false positive may occur with some drugs and drug related products. If a false positive is suspected a serum total bilirubin should be considered if clinically indicated. Urobilinogen, Urine Dipstick Normal Normal, 0.2 mg/dL, 1.0 mg/dL 07/03/2024 3:[address] [facility] pH, Urine (dipstick) 5.5 5.0 - 8.0 07/03/2024 3:[address] [facility] Blood, Urine Dipstick Negative Negative 07/03/2024 3:[address] [facility] Ketone, Urine Dipstick Trace(A) Negative 07/03/2024 3:[address] [facility] Nitrite, Urine Dipstick Positive(A) Negative 07/03/2024 3:[address] [facility] Leukocytes, Urine Dipstick Moderate(A) Negative 07/03/2024 3:[address] [facility] Specific [place] Urine Automated 1.024 1.005 - 1.030 07/03/2024 3:[address] [facility] Appearance, Urine Dipstick Cloudy(A) Clear 07/03/2024 3:[address] [facility] Color, Urine Dipstick Dark Yellow Yellow, Dark Yellow 07/03/2024 3:[address] [facility] Urine URINE SPECIMEN OBTAINED BY CLEAN CATCH PROCEDURE / Unknown Non Blood Collection / Unknown 07/03/2024 3:02 PM EDT 07/03/2024 3:13 PM EDT Armond Denny MD URINE ORDERABLES [facility] [place] [address] * POC, GLUCOSE (07/03/2024 11:21 AM EDT) [facility] Signature Glucometer, POC 177 65 - 199 mg/dL 07/03/2024 11:[address] [facility] Comment:Supplemental ranges: <140 mg/dL before meals <180 mg/dL all other times of the day. Blood CAPILLARY BLOOD / Unknown 07/03/2024 11:21 AM EDT 07/03/2024 11:21 AM EDT Armond Denny MD POINT OF CARE TEST O RDERABLES Performing Organization Address City/[facility]/ZIP Co de Phone Number [facility] [place] [address] * POC, GLUCOSE (07/03/2024 7:24 AM EDT) Glucometer, POC 124 65 - 199 mg/dL 07/03/2024 7:[address] [facility] Comment:Supplemental ranges: <140 mg/dL before meals <180 mg/dL all other times of the day. Blood CAPILLARY BLOOD / Unknown 07/03/2024 7:24 AM EDT 07/03/2024 7:24 AM EDT Armond Denny MD POINT OF CARE TEST O RDERABLES Performing Organization Address [facility]/ZIP Co de Phone Number [facility] [place] [address] * Magnesium (07/03/2024 4:02 AM EDT) Magnesium 0.86 0.69 - 1.07 mMol/L 07/03/2024 4:[address] [facility] Blood VENOUS BLOOD SPECIMEN / Unknown IP Care Team Draw / Unknown 07/03/2024 4:02 AM EDT 07/03/2024 4:07 AM EDT Triston Godinez MD CHEMISTRY ORDERABLES Performing Organization Address City/[facility]/ZIP Co de Phone Number [facility] [place] [address] * Basic Metabolic Panel (07/03/2024 4:02 AM EDT) Glucose 146 65 - 199 mg/dL 07/03/2024 4:41 AM [facility] Comment:Glucose Concentratio n >=200 mg/dL plus symptoms is consistent with Diabetes Mellitus. Blood Urea Nitrogen 15 10 - 20 mg/dL 07/03/2024 4:41 AM [facility] Creatinine 1.25 0.80 - 1.50 mg/dL 07/03/2024 4:41 AM [facility] Sodium 138 135 - 145 mMol/L 07/03/2024 4:41 AM [facility] Potassium 3.6 3.5 - 5.0 mMol/L 07/03/2024 4:41 AM [facility] Chloride 105 98 - 107 mMol/L 07/03/2024 4:41 AM [facility] Carbon Dioxide 22 22 - 31 mMol/L 07/03/2024 4:41 AM [facility] Anion Gap 11 5 - 15 mMol/L 07/03/2024 4:41 AM [facility] Calcium 9.2 8.5 - 10.5 mg/dL 07/03/2024 4:41 AM [facility] Est Glomerular Filtration Rate - Male 60 mL/min/1. 73 m?? 07/03/2024 4:41 AM [facility] Comment: This patient's estimated GFR [...] AM EDT Triston Godinez MD CHEMISTRY ORDERABLES [facility] [place] [address] * (ABNORMAL) CBC (with Diff) (07/03/2024 4:02 AM EDT) White Blood Cell 5.90 4.00 - 9.50 x10(3)/mc L 07/03/2024 4:[address] [facility] Red Blood Cell 3.27(L) 4.58 - 5.54 x10(6)/mc L 07/03/2024 4:[address] [facility] Hemoglobin 11.0(L) 13.7 - 16.5 g/dL 07/03/2024 4:13 AM [facility] Hematocrit 33.1(L) 40.5 - 48.5 % 07/03/2024 4:[address] [facility] Mean Cell Volume 101.2(H) 82.9 - 93.1 fL 07/03/2024 4:13 AM [facility] Mean Cell Hemoglobin 33.6(H) 27.5 - 32.1 pg 07/03/2024 4:13 AM [facility] Mean Cell Hemoglobin Concentration 33.2 32.0 - 35.7 g/dL 07/03/2024 4:[facility] Platelet 156 145 - 357 x10(3)/mc L 07/03/2024 4:[address] [facility] Mean Platelet Volume 11.3 7.6 - 12.9 fL 07/03/2024 4:13 [facility] RDW Standard Deviation 47.5(H) 36.0 - 45.0 fL 07/03/2024 4:13 AM [facility] RDW coefficient of variation 12.7 11.4 - 13.8 % 07/03/2024 4:13 [facility] NRBC% auto 0.0 % 07/03/2024 4:13 AM [facility] NRBC Absolute 0.00 0.00 - 0.00 x10(3)/mc L 07/03/2024 4:13 AM [facility] Neutrophil % 70.0 % 07/03/2024 4:13 AM [facility] Neutrophil Absolute 4.13 1.70 - 6.10 x10(3)/mc L 07/03/2024 4:13 AM [facility] Lymph % 18.3 % 07/03/2024 4:13 AM [facility] Lymph Absolute 1.08 0.90 - 3.20 x10(3)/mc L 07/03/2024 4:13 AM [facility] Monocyte % 8.5 % 07/03/2024 4:13 AM [facility] Monocyte Absolute 0.50 0.30 - 0.90 x10(3)/mc L 07/03/2024 4:13 AM [facility] Eos % 2.4 % 07/03/2024 4:13 AM [facility] Eos Absolute 0.14 0.00 - 0.40 x10(3)/mc L 07/03/2024 4:13 AM [facility] Basophil % 0.5 % 07/03/2024 4:13 AM [facility] Baso Absolute 0.03 0.00 - 0.10 x10(3)/mc L 07/03/2024 4:13 AM [facility] Immature Gran % 0.3 % 4:13 AM [facility] Immature Gran Absolute 0.02 0.00 - 0.04 x10(3)/mc L 07/03/2024 4:13 AM [facility] Blood VENOUS BLOOD SPECIMEN / Unknown IP Care Team Draw / Unknown 07/03/2024 4:02 AM EDT 07/03/2024 4:07 AM EDT Triston Godinez MD HEMATOLOGY ORDERABLE S [facility] [place] [address] * (ABNORMAL) POC, GLUCOSE (07/02/2024 8:45 PM EDT) Glucometer, POC 271(H) 65 - 199 mg/dL 07/02/2024 8:[address] [facility] Comment:Supplemental ranges: <140 mg/dL before meals <180 mg/dL all other times of the day. Blood CAPILLARY BLOOD / Unknown 07/02/2024 8:45 PM EDT 07/02/2024 8:46 PM EDT Armond Denny MD POINT OF CARE TEST O RDERABLES Performing Organization Address City/[facility]/ZIP Co de Phone Number [facility] [place] [address] * (ABNORMAL) POC, GLUCOSE (07/02/2024 4:18 PM EDT) Glucometer, POC 213(H) 65 - 199 mg/dL 07/02/2024 4:[address] [facility] Comment:Supplemental ranges: <140 mg/dL before meals <180 mg/dL all other times of the day. Blood CAPILLARY BLOOD / Unknown 07/02/2024 4:18 PM EDT 07/02/2024 4:19 PM EDT Armond Denny MD POINT OF CARE TEST O RDERAOMAR [facility] [place] [address] * (ABNORMAL) POC, GLUCOSE (07/02/2024 11:21 AM EDT) Glucometer, POC 234(H) 65 - 199 mg/dL 07/02/2024 11:[address] [facility] Comment:Supplemental ranges: <140 mg/dL before meals <180 mg/dL all other times of the day. Blood CAPILLARY BLOOD / Unknown 07/02/2024 11:21 AM EDT 07/02/2024 11:21 AM EDT Armond Denny MD POINT OF CARE TEST O RDERABLES Performing Organization Address City/[facility]/ZIP Co de Phone Number [facility] [place] [address] * POC, GLUCOSE (07/02/2024 7:28 AM EDT) Glucometer, POC 171 65 - 199 mg/dL 07/02/2024 7:[address] [facility] Comment:Supplemental ranges: <140 mg/dL before meals <180 mg/dL all other times of the day. Blood CAPILLARY BLOOD / Unknown 07/02/2024 7:28 AM EDT 07/02/2024 7:28 AM EDT Armond Denny MD POINT OF CARE TEST O RDERABLES Performing Organization Address [facility]/ZIP Co de Phone Number [facility] [place] [address] * Magnesium (07/02/2024 7:12 AM EDT) Magnesium 0.89 0.69 - 1.07 mMol/L 07/02/2024 8:[address] [facility] Blood VENOUS BLOOD SPECIMEN / Unknown IP Care Team Draw / Unknown 07/02/2024 7:12 AM EDT 07/02/2024 7:19 AM EDT Triston Godinez MD CHEMISTRY ORDERABLES Performing Organization Address City/[facility]/ZIP Co de Phone Number [facility] [place] [address] * Basic Metabolic Panel (07/02/2024 7:12 AM EDT) Glucose 161 65 - 199 mg/dL 07/02/2024 8:09 AM [facility] Comment:Glucose Concentratio n >=200 mg/dL plus symptoms is consistent with Diabetes Mellitus. Blood Urea Nitrogen 13 10 - 20 mg/dL 07/02/2024 8:09 AM [facility] Creatinine 1.18 0.80 - 1.50 mg/dL 07/02/2024 8:09 AM [facility] Sodium 136 135 - 145 mMol/L 07/02/2024 8:09 AM [facility] Potassium 3.6 3.5 - 5.0 mMol/L 07/02/2024 8:09 AM [facility] Chloride 104 98 - 107 mMol/L 07/02/2024 8:09 AM [facility] Carbon Dioxide 24 22 - 31 mMol/L 07/02/2024 8:09 AM [facility] Anion Gap 8 5 - 15 mMol/L 07/02/2024 8:09 AM [facility] Calcium 8.8 8.5 - 10.5 mg/dL 07/02/2024 8:09 AM [facility] Est Glomerular Filtration Rate - Male 64 mL/min/1. 73 m?? 07/02/2024 8:09 AM [facility] Comment: This patient's estimated GFR [...] AM EDT Triston Godinez MD CHEMISTRY ORDERABLES [facility] [address] * (ABNORMAL) CBC (with Diff) (07/02/2024 7:12 AM EDT) White Blood Cell 5.99 4.00 - 9.50 x10(3)/mc L 07/02/2024 7:[address] [facility] Red Blood Cell 3.36(L) 4.58 - 5.54 x10(6)/mc L 07/02/2024 7:[address] [facility] Hemoglobin 11.3(L) 13.7 - 16.5 g/dL 07/02/2024 7:41 AM [facility] Hematocrit 34.3(L) 40.5 - 48.5 % 07/02/2024 7:[address] [facility] Mean Cell Volume 102.1(H) 82.9 - 93.1 fL 07/02/2024 7:41 AM [facility] Mean Cell Hemoglobin 33.6(H) 27.5 - 32.1 pg 07/02/2024 7:41 AM [facility] Mean Cell Hemoglobin Concentration 32.9 32.0 - 35.7 g/dL 07/02/2024 7:[facility] Platelet 155 145 - 357 x10(3)/mc L 07/02/2024 7:41 AM [facility] Mean Platelet Volume 11.3 7.6 - 12.9 fL 07/02/2024 7:41 AM [facility] RDW Standard Deviation 48.2(H) 36.0 - 45.0 fL 07/02/2024 7:41 AM [facility] RDW coefficient of variation 12.9 11.4 - 13.8 % 07/02/2024 7:41 AM [facility] NRBC% auto 0.0 % 07/02/2024 7:41 AM [facility] NRBC Absolute 0.00 0.00 - 0.00 x10(3)/mc L 07/02/2024 7:41 AM [facility] Neutrophil % 75.2 % 07/02/2024 7:41 AM [facility] Neutrophil Absolute 4.50 1.70 - 6.10 x10(3)/mc L 07/02/2024 7:41 AM [facility] Lymph % 14.0 % 07/02/2024 7:41 AM [facility] Lymph Absolute 0.84(L) 0.90 - 3.20 x10(3)/mc L 07/02/2024 7:41 AM [facility] Monocyte % 8.7 % 07/02/2024 7:41 AM [facility] Monocyte Absolute 0.52 0.30 - 0.90 x10(3)/mc L 07/02/2024 7:41 AM [facility] Eos % 1.3 % 07/02/2024 7:41 AM [facility] Eos Absolute 0.08 0.00 - 0.40 x10(3)/mc L 07/02/2024 7:41 AM [facility] Basophil % 0.5 % 07/02/2024 7:41 AM [facility] Baso Absolute 0.03 0.00 - 0.10 x10(3)/mc L 07/02/2024 7:41 AM [facility] Immature Gran % 0.3 % 7:41 AM [facility] Immature Gran Absolute 0.02 0.00 - 0.04 x10(3)/mc L 07/02/2024 7:41 AM [facility] Blood VENOUS BLOOD SPECIMEN / Unknown IP Care Team Draw / Unknown 07/02/2024 7:12 AM EDT 07/02/2024 7:19 AM EDT Triston Godinez MD HEMATOLOGY ORDERABLE S [facility] [address] * CT Abdomen & Pelvis w Contrast (07/02/2024 3:13 AM EDT) WORKSTATION ID [id number] RAD Anatomical Region Laterality Modality Abdomen, Pelvis [...] who have questions please contact the health manager progressive care that requested your imaging first. ? [...] patients who have questions please contactthe health manager progressive care that requested your imaging first. Triston Godinez MD IMG CT ORDERABLES * POC, GLUCOSE (07/01/2024 7:58 PM EDT) Glucometer, POC 84 65 - 199 mg/dL 07/01/2024 7:[address] [facility] Comment:Supplemental ranges: <140 mg/dL before meals <180 mg/dL all other times of the day. Blood CAPILLARY BLOOD / Unknown 07/01/2024 7:58 PM EDT 07/01/2024 7:59 PM EDT Armond Denny MD POINT OF CARE TEST O CEE Performing Organization Address City/[facility]/ZIP Co de Phone Number [facility] [place] [address] * POC, GLUCOSE (07/01/2024 6:41 PM EDT) Glucometer, POC 91 65 - 199 mg/dL 07/01/2024 6:[address] [facility] Comment:Supplemental ranges: <140 mg/dL before meals <180 mg/dL all other times of the day. Blood CAPILLARY BLOOD / Unknown 07/01/2024 6:41 PM EDT 07/01/2024 6:41 PM EDT Armond Denny MD POINT OF CARE TEST O CEE Performing Organization Address [facility] Co de Phone Number [facility] [place] [place] [address] * EKG 12 Lead (07/01/2024 5:24 PM EDT) Ventricular rate 77 BPM MUSE SYSTEM Atrial Rate 77 BPM MUSE SYSTEM P-R Interval 178 ms MUSE SYSTEM QRS Duration 138 ms MUSE SYSTEM Q-T Interval 418 ms MUSE SYSTEM QTC Calculated (Bezet) 473 ms MUSE SYSTEM Calculated P [place] 63 degrees MUSE SYSTEM Calculated R [place] 87 degrees MUSE SYSTEM Calculated T [place] 8 degrees MUSE SYSTEM INTERPRETATION Normal sinus [...] Modality Other Narrative 07/01/2024 7:47 PM EDT ?[facility] ? Cardiac Catheterization/Intervention Report ? Patient Name: Rodriguez, Brian Joya. ? Procedure Date: 07/01/2024 ? A #: [id number] ? Primary Physician: Lizzette Hayden ? Case #: [id number] ? File Name: [id number] ? Catheterization Order Number: [id number] ? [facility] ? Final Report [place], [place] ? Patient Name: ? Brian M. Rodriguez ?ID#: ?[id number] ? : ?1950 ? Procedure Date: ? July 01, 2024 ? Case #: ? [id number] ? Room: ? 5 ? Case Physician: [...] procedure was Urgent. The indication for ?the cardiac cath lab manager visit is ACS less than or equal [...] ? A premounted 2.75 x 22 mm [place] Brule (EILEEN) was deployed ? with a maximum [...] dose administered prior to arrival in the cardiac cath lab manager. ?Recommended anti-platelet/anti-thrombotic regimen: ?Continue aspirin 81 mg daily. ?Continue clopidogrel 75 mg daily. ?These recommendations are made at the time of the intervention. Patient ?and provider preferences or a changing clinical situation may require ?modification of this regimen. Consult [facility] Interventional Cardiology for ?questions. ?This patient has [...] against any medical treatment. Consult ?http://tools.acc.org/DAPTriskapp/#!/content/calculator/ or [facility] ?Interventional Cardiology for questions ? Conclusions: ?* [...] Procedure Note Lizzette Hayden MD - 07/14/2024 [facility] Cardiac Catheterization/Intervention Report Patient Name: Rodriguez, Brian M. Procedure Date: 07/01/2024 A #: [id number] Primary Physician: Lizzette Hayden Case #: [id number] File Name: [id number] Catheterization Order Number: [id number] [facility] FinalReport [place], [place] Patient Name: Brian Rodriguez ID#:[id number] :1950 Procedure Date: July 01, 2024 Case [...] diagnostic procedure was Urgent. The indicationfor the cardiac cath lab manager visit is ACS less than or equal [...] time was 37.0 minutes, dose area product [id number] Gy/cm2 and air kerma was 1,874 mGY. [...] The priority for the procedure was Urgent.The [facility] indication for the procedure was [...] The lesion was predilated with a 2.50mm [id number] MM balloon with a maximum inflation pressure of 14atmospheres. A premounted 2.75 x 22 mm [place] Brule (EILEEN) wasdeployed with a maximum inflation pressure [...] dose administered prior to arrival in the cardiac cath lab manager. Recommended anti-platelet/anti-thrombotic regimen: Continue aspirin 81 mg daily. Continue clopidogrel 75 mg daily. These recommendations are made at the time of the intervention.Patient and provider preferences or a changing clinical situation mayrequire modification of this regimen. Consult [facility]iology[facility] questions. This patient has a [...] or against any medical treatment.Consult http://tools.acc.org/DAPTriskapp/#!/content/calculator/ or [facility] for questions Conclusions: * One [...] - 199 mg/dL 07/01/2024 11:[address] [facility] Comment:Supplemental ranges: <140 mg/dL before meals <180 mg/dL all other times of the day. Blood CAPILLARY BLOOD / Unknown 07/01/2024 11:35 AM EDT 07/01/2024 11:35 AM EDT Armond Denny MD POINT OF CARE TEST O RDERABLES [facility] [place] [address] * (ABNORMAL) Hemogram (07/01/2024 10:32 AM EDT) White Blood Cell 7.02 4.00 - 9.50 x10(3)/mc L 07/01/2024 11:[address] [facility] Red Blood Cell 3.68(L) 4.58 - 5.54 x10(6)/mc L 07/01/2024 11:[address] [facility] Hemoglobin 12.2(L) 13.7 - 16.5 g/dL 07/01/2024 11:20 AM [facility] Hematocrit 36.5(L) 40.5 - 48.5 % 07/01/2024 11:20 AM [facility] Mean Cell Volume 99.2(H) 82.9 - 93.1 fL 07/01/2024 11:20 AM [facility] Mean Cell Hemoglobin 33.2(H) 27.5 - 32.1 pg 07/01/2024 11:20 AM [facility] Mean Cell Hemoglobin Concentration 33.4 32.0 - 35.7 g/dL 07/01/2024 11:20 AM [facility] Platelet 167 145 - 357 x10(3)/mc L 07/01/2024 11:20 AM [facility] Mean Platelet Volume 11.4 7.6 - 12.9 fL 07/01/2024 11:20 AM [facility] RDW Standard Deviation 46.5(H) 36.0 - 45.0 fL 07/01/2024 11:20 AM [facility] RDW coefficient of variation 12.9 11.4 - 13.8 % 07/01/2024 11:20 AM [facility] NRBC% auto 0.0 % 07/01/2024 11:20 AM [facility] NRBC Absolute 0.00 0.00 - 0.00 x10(3)/mc L 07/01/2024 11:20 AM [facility] Blood VENOUS BLOOD SPECIMEN / Unknown IP Care Team Draw / Unknown 07/01/2024 10:32 AM EDT 07/01/2024 10:54 AM EDT Armond Denny MD HEMATOLOGY ORDERABLE S [facility] [address] * Heparin (unfractionated) Level (07/01/2024 10:32 AM EDT) UF Heparin 0.31 IU/mL 07/01/2024 11:[address] [facility] Comment: Heparin (anti-Xa) levels should [...] MD HEMATOLOGY ORDERABLE S Performing Organization Address [facility] Co de Phone Number [facility] [place] [address] * POC, GLUCOSE (07/01/2024 7:18 AM EDT) [facility] Signature Glucometer, POC 105 65 - 199 mg/dL 07/01/2024 7:[address] [facility] Comment:Supplemental ranges: <140 mg/dL before meals <180 mg/dL all other times of the day. Blood CAPILLARY BLOOD / Unknown 07/01/2024 7:18 AM EDT 07/01/2024 7:19 AM EDT Triston Godinez MD POINT OF CARE TEST O RDERABLES Performing Organization Address City/[facility] Co de Phone Number [facility] [address] * Heparin (unfractionated) Level (07/01/2024 3:15 AM EDT) Pathologist [facility] [place] UF Heparin 0.36 IU/mL 07/01/2024 4:[address] [facility] Comment: Heparin (anti-Xa) levels should [...] EDT Triston Godinez MD HEMATOLOGY ORDERABLE S [facility] [place] [address] * (ABNORMAL) CBC (with Diff) (07/01/2024 3:15 AM EDT) Pathologist [facility] [place] White Blood Cell 5.82 4.00 - 9.50 x10(3)/mc L 07/01/2024 3:[address] [facility] Red Blood Cell 3.60(L) 4.58 - 5.54 x10(6)/mc L 07/01/2024 3:[address] [facility] Hemoglobin 11.9(L) 13.7 - 16.5 g/dL 07/01/2024 3:54 AM [facility] Hematocrit 35.6(L) 40.5 - 48.5 % 07/01/2024 3:54 AM [facility] Mean Cell Volume 98.9(H) 82.9 - 93.1 fL 07/01/2024 3:54 AM [facility] Mean Cell Hemoglobin 33.1(H) 27.5 - 32.1 pg 07/01/2024 3:54 AM [facility] Mean Cell Hemoglobin Concentration 33.4 32.0 - 35.7 g/dL 07/01/2024 3:54 AM [facility] Platelet 169 145 - 357 x10(3)/mc L 07/01/2024 3:54 AM [facility] Mean Platelet Volume 11.6 7.6 - 12.9 fL 07/01/2024 3:54 AM [facility] RDW Standard Deviation 46.3(H) 36.0 - 45.0 fL 07/01/2024 3:54 AM [facility] RDW coefficient of variation 12.8 11.4 - 13.8 % 07/01/2024 3:54 AM [facility] NRBC% auto 0.0 % 07/01/2024 3:54 AM [facility] NRBC Absolute 0.00 0.00 - 0.00 x10(3)/mc L 07/01/2024 3:54 AM [facility] Neutrophil % 66.6 % 07/01/2024 3:54 AM [facility] Neutrophil Absolute 3.87 1.70 - 6.10 x10(3)/mc L 07/01/2024 3:54 AM [facility] Lymph % 20.4 % 07/01/2024 3:54 AM [facility] Lymph Absolute 1.19 0.90 - 3.20 x10(3)/mc L 07/01/2024 3:54 AM [facility] Monocyte % 9.6 % 07/01/2024 3:[address] [facility] Monocyte Absolute 0.56 0.30 - 0.90 x10(3)/mc L 07/01/2024 3:[address] [facility] Eos % 2.6 % 07/01/2024 3:[address] [facility] Eos Absolute 0.15 0.00 - 0.40 x10(3)/mc L 07/01/2024 3:[address] [facility] Basophil % 0.5 % 07/01/2024 3:[address] [facility] Baso Absolute 0.03 0.00 - 0.10 x10(3)/mc L 07/01/2024 3:[address] [facility] Immature Gran % 0.3 % 3:[address] [facility] Immature Gran Absolute 0.02 0.00 - 0.04 x10(3)/mc L 07/01/2024 3:[address] [facility] Blood VENOUS BLOOD SPECIMEN / Unknown IP Care Team Draw / Unknown 07/01/2024 3:15 AM EDT 07/01/2024 3:37 AM EDT Triston Godinez MD HEMATOLOGY ORDERABLE S [facility] [place] [address] * Magnesium (06/30/2024 11:25 PM EDT) Magnesium 0.84 0.69 - 1.07 mMol/L 07/01/2024 12:[address] [facility] Blood VENOUS BLOOD SPECIMEN / Unknown IP Care Team Draw / Unknown 06/30/2024 11:25 PM EDT 06/30/2024 11:47 PM EDT Triston Godinez MD CHEMISTRY ORDERABLES [facility] [place] [address] * (ABNORMAL) Basic Metabolic Panel (06/30/2024 11:25 PM EDT) Glucose 145 65 - 199 mg/dL 07/01/2024 12:14 AM [facility] Comment:Glucose Concentratio n >=200 mg/dL plus symptoms is consistent with Diabetes Mellitus. Blood Urea Nitrogen 10 10 - 20 mg/dL 07/01/2024 12:14 AM [facility] Creatinine 1.02 0.80 - 1.50 mg/dL 07/01/2024 12:14 AM [facility] Sodium 141 135 - 145 mMol/L 07/01/2024 12:14 AM [facility] Potassium 3.4(L) 3.5 - 5.0 mMol/L 07/01/2024 12:14 AM [facility] Chloride 106 98 - 107 mMol/L 07/01/2024 12:14 AM [facility] Carbon Dioxide 25 22 - 31 mMol/L 07/01/2024 12:14 AM [facility] Anion Gap 10 5 - 15 mMol/L 07/01/2024 12:14 AM [facility] Calcium 9.2 8.5 - 10.5 mg/dL 07/01/2024 12:14 AM [facility] Est Glomerular Filtration Rate - Male 76 mL/min/1. 73 m?? 07/01/2024 12:14 AM [facility] Comment: This patient's estimated GFR [...] Foundation Fasting Status 07/01/2024 12:[address] [facility] Blood VENOUS BLOOD SPECIMEN / Unknown IP Care Team Draw / Unknown 06/30/2024 11:25 PM EDT 06/30/2024 11:47 PM EDT Triston Godinez MD CHEMISTRY ORDERABLES [facility] [place] [address] * (ABNORMAL) Troponin-T, Yuriy Sensitivity 3 Hour (06/30/2024 11:25 PM EDT) Pathologist [facility] [place] Troponin-T, High Sensitivity 1,274(H) <=22 ng/L 07/01/2024 12:[address] [facility] Comment: This patient's troponin T [...] troponin value can be found in the [facility] Laboratory Test Catalog Troponin - https://[email or web address]-.testcatalog.org/catalogs/565/files/39434 Reference: Fourth Prospect Definition of Myocardial Infarction. Journal of the [place] [employer] 2018;72:8909-6211 Troponin-T, HS 3 hr delta 65 ng/L 07/01/2024 12:[address] [facility] Comment:The 3 hour Troponin T delta value is the absolute difference between the Troponin T concentrations of the initial and subsequent sample collected between 2 h: 45 min and 6 h following the initial collection Blood VENOUS BLOOD SPECIMEN / Unknown IP Care Team Draw / Unknown 06/30/2024 11:25 PM EDT 06/30/2024 11:47 PM EDT Triston Godinez MD CHEMISTRY ORDERABLES [facility] [place] [address] * (ABNORMAL) Troponin-T, High Sensitivity 1 Hour (06/30/2024 8:22 PM EDT) [facility] Troponin-T, High Sensitivity 1,234(H) <=22 ng/L 06/30/2024 9:[address] [facility] Comment: This patient's troponin T [...] troponin value can be found in the [facility] Laboratory Test Catalog Troponin - https://[facility]-.testcatalog.org/catalogs/565/files/17397 Reference: Fourth Prospect Definition of Myocardial Infarction. Journal of the [place] [employer] 2018;72:2256-4443 Troponin-T, HS 1 hr delta 06/30/2024 9:[address] [facility] Comment:Delta troponin value not calculated, sample collected outside of delta calculation time limit. Blood VENOUS BLOOD SPECIMEN / Unknown Venipuncture / Unknown 06/30/2024 8:22 PM EDT 06/30/2024 8:40 PM EDT Triston Godinez MD CHEMISTRY ORDERABLES Performing Organization Address [facility]/ZIP Co de Phone Number [facility] [place] [address] * POC, GLUCOSE (06/30/2024 7:56 PM EDT) Glucometer, POC 144 65 - 199 mg/dL 06/30/2024 7:[address] [facility] Comment:Supplemental ranges: <140 mg/dL before meals <180 mg/dL all other times of the day. Blood CAPILLARY BLOOD / Unknown 06/30/2024 7:56 PM EDT 06/30/2024 7:57 PM EDT Triston Godinez MD POINT OF CARE TEST O RDERABLES Performing Organization Address [facility]/ZIP Co de Phone Number [facility] [place] [place] [address] * XR Abdomen Flat & Upright (06/30/2024 6:56 PM EDT) WORKSTATION ID [id number] RAD Anatomical Region Laterality Modality Abdomen N/A Digital Radiogra phy Impressions 06/30/2024 9:12 PM EDT No obstruction or perforation. Thank you for letting us participate in the care of this patient. ??If you are a health care provider and have any questions regarding this report, please contact the number below. ??For patients who have questions please contact the health manager progressive care that requested your imaging first. ? Electronically signed by: Shireen Hurtado MD, [facility] ([phone]), at 06/30/2024 9:12 PM Narrative 06/30/2024 9:12 [...] patients who have questions please contactthe health manager progressive care that requested your imaging first. Electronically signed by: Shireen Hurtado MD, [facility]([phone]), at 06/30/2024 9:12 PM Triston Godinez MD IMG DX ORDERABLES * (ABNORMAL) Troponin-T, High Sensitivity (06/30/2024 6:09 PM EDT) [facility] Troponin-T, High Sensitivity Initial 1,209([facility] ) <=22 ng/L 06/30/2024 7:[address] [facility] Comment: This patient's troponin T [...] troponin value can be found in the [facility] Laboratory Test Catalog Troponin - https://one-.testcatalog.org/catalogs/565/files/59161 Reference: Fourth Prospect Definition of Myocardial Infarction. Journal of the [place] [employer] 2018;72:3794-7286 Blood VENOUS BLOOD SPECIMEN / Unknown Venipuncture / Unknown 06/30/2024 6:09 PM EDT 06/30/2024 6:18 PM EDT Triston Godinez MD CHEMISTRY ORDERABLES [facility] [place] [address] * (ABNORMAL) Basic Metabolic Panel (06/30/2024 6:09 PM EDT) Glucose 06/30/2024 8:[address] [facility] Comment:Insufficient sample. Informed Alli Meyers at 20:07, 06.30.2024. Blood Urea Nitrogen 10 10 - 20 mg/dL 06/30/2024 8:[address] [facility] Creatinine 0.98 0.80 - 1.50 mg/dL 06/30/2024 8:[address] [facility] Sodium 140 135 - 145 mMol/L [facility] Potassium 4.2 3.5 - 5.0 mMol/L 06/30/2024 8:[facility] Chloride 105 98 - 107 mMol/L 06/30/2024 8:[facility] Carbon Dioxide 21(L) 22 - 31 mMol/L 06/30/2024 8:[address] [facility] Anion Gap 14 5 - 15 mMol/L 06/30/2024 8:[facility] Calcium 06/30/2024 8:08 [facility] Comment:Insufficient sample. Informed Alli Vanasse at 20:07, 06.30.2024. Est Glomerular Filtration Rate - Male 80 mL/min/1. 73 m?? 06/30/2024 8:[address] [facility] Comment: This patient's [...] Fasting Status Yes 06/30/2024 8:[address] [facility] Blood VENOUS BLOOD SPECIMEN / Unknown Venipuncture / Unknown 06/30/2024 6:09 PM EDT 06/30/2024 6:18 PM EDT Triston Godinez MD CHEMISTRY ORDERABLES [facility] [place] [address] * Lipid Panel (Reflex Direct LDL) (06/30/2024 6:09 PM EDT) Cholesterol, Total 197 mg/dL 06/30/2024 6:[address] [facility] Comment: Desirable: < 200 mg/dL Borderline High: 200 - 239 mg/dL High: > or = 240 mg/dL Triglyceride 230 mg/dL 06/30/2024 6:[address] [facility] Comment: Normal: <150 mg/dL Borderline High: 150-199 mg/dL High: 200-499 mg/dL Very High: > or =500 mg/dL HDL Cholesterol 36 mg/dL 6:51 PM [facility] Comment:Males: High Risk: <4 0 mg/dL LDL Cholesterol 120 mg/dL 6:51 PM [facility] Comment: Desirable: <100 mg/dL Above Desirable: 100-129 mg/dL Borderline High: 130-159 mg/dL High: 160-189 mg/dL Very High: > or =190 mg/dL Note: LDL calculation updated to the NIH LDL formula as of 06/26/2024 Non-HDL Cholesterol 161 mg/dL 06/30/2024 6:51 PM [facility] Comment: Desirable: <130 mg/dL Above Desirable: 130-159 mg/dL Borderline High: 160-189 mg/dL High: 190-219 mg/dL Very High: > or = 220 mg/dL Blood VENOUS BLOOD SPECIMEN / Unknown Venipuncture / Unknown 06/30/2024 6:09 PM EDT 06/30/2024 6:18 PM EDT [facility] - 06/30/2024 6:51 PM EDT It [...] ACC/AHA Guidelines (most recently Brianne et al. [facility] 08/26/22): * For individuals with atherosclerotic cardiovascular [...] artery disease) Triston Godinez MD CHEMISTRY ORDERABLES [facility] [place] [address] * (ABNORMAL) pro-Brain Natriuretic Peptide (06/30/2024 6:09 PM EDT) [facility] NT-proBNP 2,259(H) <=449 pg/mL 06/30/2024 6:[address] [facility] Blood VENOUS BLOOD SPECIMEN / Unknown Venipuncture / Unknown 06/30/2024 6:09 PM EDT 06/30/2024 6:18 PM EDT Triston Godinez MD CHEMISTRY ORDERABLES Performing Organization Address [facility] Co de Phone Number [facility] [place] [address] * TSH (06/30/2024 6:09 PM EDT) Pathologist [facility] [place] Thyroid Stimulating Hormone 2.80 0.27 - 4.20 mcIU/mL 06/30/2024 6:[address] [facility] Blood VENOUS BLOOD SPECIMEN / Unknown Venipuncture / Unknown 06/30/2024 6:09 PM EDT 06/30/2024 6:18 PM EDT Trisotn Godinez MD CHEMISTRY ORDERABLES Performing Organization Address [facility] Co de Phone Number [facility] [place] [address] * Heparin (unfractionated) Level (06/30/2024 6:08 PM EDT) UF Heparin 0.07 IU/mL 06/30/2024 6:[address] [facility] Comment: Heparin (anti-Xa) levels should [...] EDT Triston Godinez MD HEMATOLOGY ORDERABLE S [facility] [place] [address] * (ABNORMAL) CBC (with Diff) (06/30/2024 6:08 PM EDT) White Blood Cell 6.45 4.00 - 9.50 x10(3)/mc L 06/30/2024 6:[address] [facility] Red Blood Cell 3.78(L) 4.58 - 5.54 x10(6)/mc L 06/30/2024 6:[address] [facility] Hemoglobin 12.7(L) 13.7 - 16.5 g/dL 06/30/2024 6:[address] [facility] Hematocrit 38.0(L) 40.5 - 48.5 % 06/30/2024 6:[address] [facility] Mean Cell Volume 100.5(H) 82.9 - 93.1 fL 06/30/2024 6:[address] [facility] Mean Cell Hemoglobin 33.6(H) 27.5 - 32.1 pg 06/30/2024 6:[address] [facility] Mean Cell Hemoglobin Concentration 33.4 32.0 - 35.7 g/dL 06/30/2024 6:[address] [facility] Platelet 79(L) 145 - 357 x10(3)/mc L 06/30/2024 6:[address] [facility] Mean Platelet Volume 11.2 7.6 - 12.9 fL 06/30/2024 6:[address] [facility] RDW Standard Deviation 48.4(H) 36.0 - 45.0 fL 06/30/2024 6:[address] [facility] RDW coefficient of variation 13.0 11.4 - 13.8 % 06/30/2024 6:[facility] NRBC% auto 0.0 % 06/30/2024 6:[address] [facility] NRBC Absolute 0.00 0.00 - 0.00 x10(3)/mc L 06/30/2024 6:[address] [facility] Neutrophil % 71.2 % 06/30/2024 6:[address] [facility] Neutrophil Absolute 4.59 1.70 - 6.10 x10(3)/mc L 06/30/2024 6:[address] [facility] Lymph % 18.1 % 06/30/2024 6:[address] [facility] Lymph Absolute 1.17 0.90 - 3.20 x10(3)/mc L 06/30/2024 6:[address] [facility] Monocyte % 8.2 % 06/30/2024 6:[facility] Monocyte Absolute 0.53 0.30 - 0.90 x10(3)/mc L 06/30/2024 6:[address] [facility] Eos % 1.7 % 06/30/2024 6:[address] [facility] Eos Absolute 0.11 0.00 - 0.40 x10(3)/mc L 06/30/2024 6:[address] [facility] Basophil % 0.6 % 06/30/2024 6:[address] [facility] Baso Absolute 0.04 0.00 - 0.10 x10(3)/mc L 06/30/2024 6:[address] [facility] Immature Gran % 0.2 % 6:[address] [facility] Immature Gran Absolute 0.01 0.00 - 0.04 x10(3)/mc L 06/30/2024 6:[address] [facility] Blood VENOUS BLOOD SPECIMEN / Unknown Venipuncture / Unknown 06/30/2024 6:08 PM EDT 06/30/2024 6:18 PM EDT Triston Godinez MD HEMATOLOGY ORDERABLE S [facility] [place] [address] * (ABNORMAL) Hemoglobin A1c (06/30/2024 6:08 PM EDT) Hemoglobin A1c 7.3(H) 4.3 - 5.6 % 06/30/2024 9:[address] [facility] Comment: Per ADA guidelines, without [...] red blood cell turnover may not be customer service representative teller of glycemic control. Reference Interval: 4.3 - 5.6% 5.7 - 6.4%: Consistent with prediabetes >=6.5%: Consistent with diagnosis of diabetes mellitus Estimated Average Glucose 06/30/2024 9:[address] [facility] Comment:Not Calculated. Blood VENOUS BLOOD SPECIMEN / Unknown Venipuncture / Unknown 06/30/2024 6:08 PM EDT 06/30/2024 6:[address] [facility] - 06/30/2024 9:03 PM EDT Estimated average glucose (eAG) is calculated from the equation described in: John ELLISON, Inna J, Nic R, et al. ??Translating the A1C assay into estimated average glucose values. ??Diabetes Care 2008:31(8):8509-6267. Additional resources are available on the ADA website (diabetes.org). Triston Godinez MD CHEMISTRY ORDERABLES Performing Organization Address [facility] Co de Phone Number [facility] [place] [address] * POC, GLUCOSE (06/30/2024 5:58 PM EDT) Glucometer, POC 148 65 - 199 mg/dL 06/30/2024 5:[address] [facility] Comment:Supplemental ranges: <140 mg/dL before meals <180 mg/dL all other times of the day. Blood CAPILLARY BLOOD / Unknown 06/30/2024 5:58 PM EDT 06/30/2024 5:58 PM EDT Triston Godinez MD POINT OF CARE TEST O RDERABLES Performing Organization Address [facility] Co de Phone Number [facility] [place] [address] * EKG 12 Lead (06/30/2024 5:23 PM EDT) Ventricular rate 73 BPM MUSE SYSTEM Atrial Rate 300 BPM MUSE SYSTEM QRS Duration 72 ms MUSE SYSTEM Q-T Interval 404 ms MUSE SYSTEM QTC Calculated (Bezet) 445 ms MUSE SYSTEM Calculated P [place] 71 degrees MUSE SYSTEM Calculated R [place] 65 degrees MUSE SYSTEM Calculated T [place] 30 degrees MUSE SYSTEM INTERPRETATION Normal sinus [...] Godinez MD ECG ORDERABLES Performing Organization Address [facility]/State/ZIP Co de Phone Number MUSE SYSTEM [...] NSTEMI (non-ST elevation myocardial infarction) Exam Location: [facility]. ? Conclusions -Left ventricular systolic function is moderately reduced. The left ventricular ejection fraction is 36% by Dowd's biplane. The anterolateral and inferolateral barahona are akinetic. The anterior wall is hypokinetic. -Right ventricle is mildly dilated. Systolic function is normal. -No significant valve disease. -See report for additional findings. No prior study is available. Procedure Complete-[id number]. Image enhancement Optison was used for left [...] NSTEMI (non-ST elevation myocardial infarction) Exam Location: [facility]. Conclusions -Left ventricular systolic function is moderately reduced. The leftventricular ejection fraction is 36% by Dowd's biplane. The anterolateral andinferolateral barahona are akinetic. The anterior wall is hypokinetic. -Right ventricle is mildly dilated. Systolic function is normal. -No significant valve disease. -See report for additional findings. No prior study is available. Procedure Complete-[id number]. Image enhancement Optison was used for left [...] (Bezet) 460 ms MUSE SYSTEM Calculated P [place] 69 degrees MUSE SYSTEM Calculated R [place] 78 degrees MUSE SYSTEM Calculated T [place] 39 degrees MUSE SYSTEM INTERPRETATION Sinus rhythm Occasional Premature ventricular complexes Right bundle branch block Abnormal ECG No previous ECGs available Confirmed by MD Arthur, Gutierrez Boyd ([id number]) on 07/01/2024 9:55:31 AM MUSE SYSTEM 06/30/2024 3:53 PM EDT 07/01/2024 9:55 AM EDT Triston Godinez MD ECG ORDERABLES MURPHYS SYSTEM documented in this encounter Visit Diagnoses [...] EVERY 6 HOURS SCHEDULED, First dose on [facility] 07/02/24 at 1200, Until Discontinued, Routine [...] 40 mEq, Oral, ONCE, 1 dose, On [place] 07/03/24 at 0730, potassium chloride ER particle/crystal [...] Routine documented in this encounter Care Teams Millinery Copyist Relationship Specialty Start Date End Date Deacon Watters, CHIEF PILOT [address] [place] [address] PCP - General Family Medicine 02/17/22 documented as of this encounter
--- OUTSIDE RECORDS SUMMARY | 2024-07-22 13:04 | XMS_ITS | Encounter Summary ---
Author Organization [facility] Address [facility] [address] Care Team Providers Care Brake Linings Coater Name Role Phone Deacon Watters APRN Primary Care Provider +1- [phone] Encounter Details Date Type Department Care Team (Late st Contact Info) Description 07/05/2024 Abstract Cardiology at [address] [address] Lesa Duncan, RN Social History Tobacco Use Types Packs/Day Years Used Date Smoking Tobacco: Former Cigarettes 4 30 1 12/01/1961 - 10/01/1992 Smokeless Tobacco: Former Chew Comments:Denies vaping Alcohol Use Standard Drinks/Week Comments Yes 0 (1 standard drink = 0.6 oz pur e alcohol) twice a year [facility] Utilities Answer Date Recorded In the past 12 months has e [employer], gas, oil, or water [employer] threatened to shut off services in your [...] 9:00 AM EDT Office [place] [address] Dion Barlow MD [facility] [place] [address] 09/01/2024 9:40 AM EDT Office Visit Cardiology at [address] [phone] Franky Shaver MD [facility] [place] [address] 09/01/2024 11:20 AM EDT Office Visit Dermatology at [facility] [address] [place] [phone] Gómez Mercer MD [facility] DR EDD[place] [address] 09/21/2024 2:45 PM EDT Office Visit [facility] [place] [address] Trung Hoyos MD [facility] [place] [address] documented as of this encounter Visit Diagnoses Not on filedocumented in this encounter Care Teams Brake Linings Coater Relationship Specialty Start Date End Date Deacon Watters, KNIFE GRINDER [address] [place] [address] [address] [place] [address] PCP - General Family Medicine 02/17/22 documented as of this encounter
--- OUTSIDE RECORDS SUMMARY | 2024-07-22 13:04 | XMS_ITS | Encounter Summary ---
Author Organization [facility] Address [address] [place] [address] Care Team Providers Care Sneller Hand Name Role Phone Sharad Mcleod MD Primary Care Provider Unavail able Encounter Details Date Type Department Care Team (Late st Contact Info) Description 04/08/2010 Results Only [facility] Laboratory Services - [facility] ([facility]) [address] [place], [place] [id number] Marcelo Agustin, DO [address] [facility] [address] [place], [place] [address] Social History Tobacco Use Types Packs/Day Years [...] ? RODRIGUEZ, BRIAN ? Accession #: ? [id number] ? : ? 1950 (Age: 59) ??M [...] cm, submitted in toto as (D). (Davina Ordoñez)/[facility] ? End of Report ? [facility] 04/08/2010 04/09/2010 16: 29 EDT Marcelo Agustin DO PATHOLOGY ORDER ASHLIE Performing Organization Address City/State/[facility] Co de Phone Number [facility] [address] [place] [address] documented in this encounter Visit Diagnoses Not on filedocumented in this encounter Care Teams Sneller Hand Relationship Specialty Start Date End Date Sharad Mcleod MD PCP - General 12/07/09 03/17/16 documented as of this encounter
--- OUTSIDE RECORDS SUMMARY | 2024-07-22 13:05 | XMS_ITS | Encounter Summary ---
Author Organization [facility] [place] [address] Care Team Providers Care Sole Painter Name Role Phone Deacon Watters APRN Primary Care Provider +1- [phone] Encounter Details Date Type Department Care Team (Latest Contact Info) Description 06/07/2024 12:55 PM EDT - 06/07/2024 11:59 PM EDT [place] [address] Left sided colitis without complications Discharge Disposition: [...] as needed for Wheezing. Use with spacer DTO SCOTT U-100 INSULIN 100 unit/mL (3 mL) [...] 9:00 AM EDT Office [place] [phone] Dion Barlow MD [facility] [place] [address] 09/01/2024 9:40 AM EDT Office Visit Cardiology at [address] [phone] Franky Shaver MD [facility] [place] [address] 09/01/2024 11:20 AM EDT Office Visit Dermatology at [address] [address] Gómez Mercer MD [facility] [place] [address] 09/21/2024 2:45 PM EDT Office Visit [place] [phone] Trung Hoyos MD [facility] [place] [address] documented as of this encounter Procedures Procedure [...] 1 EIA Negative for Shiga Toxin 2 [facility] Stool 06/07/2024 9:00 AM EDT 06/07/2024 1:32 PM EDT Narrative Resulting Agency Comment Spec In Lab Marcelle Weinberg WEB MARKETING STRATEGIST MICROBIOLOGY - GE NERAL ORDERABLES Performing Organization Address City/[facility]/ZIP Co de Phone Number [facility] [place] [address] * Campylobacter Antigen (06/07/2024 9:00 AM EDT) Campylobacter Ag Immunoassay Negative for Campylobacter Antigen [facility] Stool 06/07/2024 9:00 AM EDT 06/07/2024 1:32 PM EDT Narrative Resulting Agency Comment Spec In Lab Marcelle Weinberg WEB MARKETING STRATEGIST MICROBIOLOGY - GE NERAL ORDERABLES Performing Organization Address City/[facility]/ZIP Co de Phone Number [facility] [place] [address] * Stool culture (06/07/2024 9:00 AM EDT) Stool Culture No enteric pathogens isolated [facility] Stool 06/07/2024 9:00 AM EDT 06/07/2024 1:32 PM EDT Narrative Resulting Agency Comment Spec In Lab Marcelle Weinberg WEB MARKETING STRATEGIST MICROBIOLOGY - GE NERAL ORDERABLES Performing Organization Address City/[facility]/ZIP Co de Phone Number [facility] [place] [address] documented in this encounter Visit Diagnoses Diagnosis Left sided colitis without complications Left sided ulcerative (chronic) colitis documented in this encounter Additional Health Concerns Infection Onset Date Last Indicated Resolved Time Rule Out C. difficile 06/07/2024 06/06/20242023 2:27 PM EDT documented as of this encounter Care Teams Sole Painter Relationship Specialty Start Date End Date Deacon Watters APRN [address] [place] [address] PCP - General Family Medicine 02/17/22 documented as of this encounter
--- OUTSIDE RECORDS SUMMARY | 2024-07-22 13:05 | XMS_ITS | Encounter Summary ---
Author Organization [facility] [place] [address] Care Team Providers Care Venetian Blind Maker Name Role Phone Deacon Watters Priscilla LUCERO Primary Care Provider +1- [phone] Reason for Visit * Reason Comments Medication Refill Encounter Details Date Type Department Care Team (Late st Contact Info) Description 02/19/2024 Refill [place] [address] Dion Barlow MD [facility] [place] [address] Social History Tobacco Use Types Packs/Day Years [...] 9:00 AM EDT Office [place] [address] Dion Barlow MD [facility] [place] [address] 09/01/2024 9:40 AM EDT Office Visit Cardiology at [address] [place] [address] Franky Shaver MD [facility] [place] [address] 09/01/2024 11:20 AM EDT Office Visit Dermatology at [facility] [address] [place] [address] Gómez Mercer MD [facility] [address] EDDIE [place] [address] 09/21/2024 2:45 PM EDT Office Visit Pain and Spine Center at [facility] [place] [address] Trung Hoyos MD [facility] [place] [address] documented as of this encounter Visit Diagnoses Not on filedocumented in this encounter Care Teams Venetian Blind Maker Relationship Specialty Start Date End Date Deacon Watters, JAZMINE [address] [facility] [address] [place] [address] PCP - General Family Medicine 02/17/22 documented as of this encounter
--- OUTSIDE RECORDS SUMMARY | 2024-07-22 13:05 | XMS_ITS | Encounter Summary ---
Author Organization [facility] Address [facility] [place] [address] Care Team Providers Care Run Lead Name Role Phone DuongDeacon Priscilla LUCERO Primary Care Provider +1- [phone] Encounter Details Date Type Department Care Team [...] AM EDT Office [place] [address] Dion Barlow MD [facility] [place] [address] 09/01/2024 9:40 AM EDT Office Visit Cardiology at [address] [phone] Franky Shaver MD [facility] [place] [address] 09/01/2024 11:20 AM EDT Office Visit Dermatology at [facility] [address] [place] [address] Gómez Mercer MD [facility] DR [place] [address] 09/21/2024 2:45 PM EDT Office Visit Pain and Spine Center at [facility] [place] [address] Trung Hoyos MD [facility] [address] documented as of this encounter Visit Diagnoses Not on filedocumented in this encounter Care Teams Run Lead Relationship Specialty Start Date End Date Deacon Watters, JAZMINE [address] [place] [address] PCP - General Family Medicine 02/17/22 documented as of this encounter
--- OUTSIDE RECORDS SUMMARY | 2024-07-22 13:05 | XMS_ITS | Encounter Summary ---
Author Organization [facility] Address [facility] [place] [address] Care Team Providers Care Sewer Pipe Press Operator Name Role Phone DuongDeacon Priscilla LUCERO Primary Care Provider +1- [phone] Encounter Details Date Type Department Care Team [...] 9:00 AM EDT Office Visit [place] [address] Dion Barlow MD [facility] [place] [address] 09/01/2024 9:40 AM EDT Office Visit Cardiology at [address] [phone] Franky Shaver MD [facility] [place] [address] 09/01/2024 11:20 AM EDT Office Visit Dermatology at [facility] [address] [place] [address] Gómez Mercer MD [facility] DR EDDIE [place] [address] 09/21/2024 2:45 PM EDT Office Visit Pain and Spine Center at [facility] [place] [address] Trung Hoyos MD [facility] [place] [address] documented as of this encounter Visit Diagnoses Not on filedocumented in this encounter Care Teams Sewer Pipe Press Operator Relationship Specialty Start Date End Date Deacon Watters, JAZMINE [address] [place] [address] PCP - General Family Medicine 02/17/22 documented as of this encounter
--- OUTSIDE RECORDS SUMMARY | 2024-07-22 13:05 | XMS_ITS | Encounter Summary ---
Author Organization [facility] Address [facility] [address] Care Team Providers Care Production Counter Name Role Phone Deacon Watters APRN Primary Care Provider +1- [phone] Encounter Details Date Type Department Care Team (Late st Contact Info) Description 06/29/2024 External [place] [address] Social History Tobacco Use Types Packs/Day Years Used Date Smoking Tobacco: Former Cigarettes 4 30 1 12/01/1961 - 10/01/1992 Smokeless Tobacco: Former Chew Comments:Denies vaping Alcohol Use Standard Drinks/Week Comments Yes 0 (1 standard drink = 0.6 oz pur e alcohol) twice a year [facility] Utilities Answer Date Recorded [...] any time in the past 12 m [facility], were you homeless or living [...] 9:00 AM EDT Office [place] [address] Dion Barlow MD [facility] [place] [address] 09/01/2024 9:40 AM EDT Office Visit Cardiology at [address] [phone] Franky Shaver MD [facility] [place] [address] 09/01/2024 11:20 AM EDT Office Visit Dermatology at [facility] [address] [place] [address] Gómez Mercer MD [facility] DR [place] [address] 09/21/2024 2:45 PM EDT Office Visit [place] [address] Trung Hoyos MD [facility] [place] [address] documented as of this encounter Procedures Procedure Name Priority Date/Time Associated Diagnosis Comments MISC EXTERNAL CARDIOLOGY RESULT Routine 06/29/2024 4:33 PM EDT documented in this encounter Results * External Cardiology Result (06/29/2024 4:33 PM EDT) Anatomical Region Laterality Modality Other Historical Provider EXTERNAL CARDIOLO GY RESULT documented in this encounter Visit Diagnoses Not on filedocumented in this encounter Care Teams Production Counter Relationship Specialty Start Date End Date Deacon Watters, JAZMINE [address] [place] [address] PCP - General Family Medicine 02/17/22 documented as of this encounter
--- OUTSIDE RECORDS SUMMARY | 2024-07-22 13:05 | XMS_ITS | Encounter Summary ---
Author Organization [facility] Address [facility] [address] Care Team Providers Care Signal Fitter Name Role Phone DuongDeacon Priscilla LUCERO Primary Care Provider +1- [phone] Encounter Details Date Type Department Care Team [...] 9:00 AM EDT Office [place] [address] Dion Barlow MD [facility] [place] [address] 09/01/2024 9:40 AM EDT Office Visit Cardiology at [address] [phone] Franky Shaver MD [facility] [place] [address] 09/01/2024 11:20 AM EDT Office Visit Dermatology at [facility] [address] [place] [address] Gómez Mercer MD [facility] DR [place] [address] 09/21/2024 2:45 PM EDT Office Visit Pain and Spine Center at [facility] [place] [address] Trung Hoyos MD [facility] [place] [address] documented as of this encounter Visit Diagnoses Not on filedocumented in this encounter Care Teams Signal Fitter Relationship Specialty Start Date End Date Deacon Watters, JAZMINE [address] [place] [address] PCP - General Family Medicine 02/17/22 documented as of this encounter
--- OUTSIDE RECORDS SUMMARY | 2024-07-22 13:05 | XMS_ITS | Encounter Summary ---
Author Organization [facility] Address [facility] [place] [address] Care Team Providers Care Plastics And Composites Inspector Name Role Phone DuongDeacon Priscilla LUCERO Primary Care Provider +1- [phone] Encounter Details Date Type Department Care Team [...] 9:00 AM EDT Office Visit [place] [address] Dion Barlow MD [facility] [place] [address] 09/01/2024 9:40 AM EDT Office Visit Cardiology at [address] [phone] Franky Shaver MD [facility] [place] [address] 09/01/2024 11:20 AM EDT Office Visit Dermatology at [facility] [address] [place] [address] Gómez Mercer MD [facility] DR EDDIE [place] [address] 09/21/2024 2:45 PM EDT Office Visit Pain and Spine Center at [facility] [place] [address] Trung Hoyos MD [facility] [place] [address] documented as of this encounter Visit Diagnoses Not on filedocumented in this encounter Care Teams Plastics And Composites Inspector Relationship Specialty Start Date End Date Deacon Watters, JAZMINE [address] [place] [address] PCP - General Family Medicine 02/17/22 documented as of this encounter
--- OUTSIDE RECORDS SUMMARY | 2024-07-22 13:05 | XMS_ITS | Encounter Summary ---
Author Organization [facility] Address [facility] [place] [address] Care Team Providers Care Building Supervisor Name Role Phone DuongDeacon Priscilla LUCERO Primary Care Provider +1- [phone] Encounter Details Date Type Department Care Team [...] 9:00 AM EDT Office [place] [address] Dion Barlow MD [facility] [place] [address] 09/01/2024 9:40 AM EDT Office Visit Cardiology at [address] [phone] Franky Shaver MD [facility] [place] [address] 09/01/2024 11:20 AM EDT Office Visit Dermatology at [facility] [address] [place] [address] Gómez Mercer MD [facility] DR [place] [address] 09/21/2024 2:45 PM EDT Office Visit Pain and Spine Center at [facility] [place] [address] Trung Hoyos MD [facility] [place] [address] documented as of this encounter Visit Diagnoses Not on filedocumented in this encounter Care Teams Building Supervisor Relationship Specialty Start Date End Date Deacon Watters, JAZMINE [address] [place] [address] PCP - General Family Medicine 02/17/22 documented as of this encounter
--- OUTSIDE RECORDS SUMMARY | 2024-07-22 13:05 | XMS_ITS | Encounter Summary ---
Author Organization [facility] [place] [address] Care Team Providers Care Felt Hat Inspector And Packer Name Role Phone Deacon Watters APRN Primary Care Provider +1- [phone] Encounter Details Date Type Department Care Team (Latest Contact Info) Description 06/06/2024 12:56 PM EDT - 06/06/2024 11:59 PM EDT [place] [address] Left sided colitis without complications Discharge Disposition: [...] EDT Office [place] [address] Dion Barlow MD [facility] [place] [address] 09/01/2024 9:40 AM EDT Office Visit Cardiology at [address] [phone] Franky Shaver MD [facility] [place] [address] 09/01/2024 11:20 AM EDT Office Visit Dermatology at [place] [address] [place] [address] Gómez Mercer MD [facility] [place] [address] 09/21/2024 2:45 PM EDT Office Visit [place] [address] Trung Hoyos MD [facility] [place] [address] documented as of this encounter Procedures Procedure [...] Narrative Resulting Agency Comment Spec In Lab Mracelle Weinberg HAND CANDY MOLDER BODY FLUIDS AND S TOOLS ORDERABLES Performing Organization Address [facility] Co de Phone Number [facility] [place] [address] * C. Difficile Screen (06/06/2024 5:30 PM [...] Agency Comment Spec In Lab Marcelle Weinberg HAND CANDY MOLDER MICROBIOLOGY - GE NERAL ORDERABLES Performing Organization Address [facility] Co de Phone Number [facility] [place] [address] documented in this encounter Visit Diagnoses Diagnosis Left sided colitis without complications Left sided ulcerative (chronic) colitis documented in this encounter Care Teams Felt Hat Inspector And Packer Relationship Specialty Start Date End Date Deacon Watters APRN [address] [place], [place] [address] [address] [place] [address] PCP - General Family Medicine 02/17/22 documented as of this encounter
--- OUTSIDE RECORDS SUMMARY | 2024-07-22 13:05 | XMS_ITS | Encounter Summary ---
Author Organization [facility] Address [facility] [place] [address] Care Team Providers Care Blocker And Cutter Contact Lens Name Role Phone Deacon Watters APRN Primary Care Provider +1- [phone] Encounter Details Date Type Department Care Team (Latest Contact Info) Description 06/06/2024 8:00 AM EDT Office [place] [address] Marcelle Weinberg OSTEOPATHY DOCTOR [facility] [place] [address] Left sided colitis without complications Social History [...] for cramping - Repeat routine labs today( [facility]) and submit stool calprotectin ( [facility]). - Follow up with Dermatology regarding [...] colitis Overview Note: Colonoscopy 04/08/10 (Dr. Gomes [facility]) - inflammation only within the rectum and sigmoid; extent of the exam was to the hepatic flexure; biopsies proximal to the sigmoid nl Repeat exam 11/27/11 ([facility] [...] ascending colon. Several HPs and one TA. [place] 03/2022 - [place] 1 limited to rectosigmoid, diverticulosis. No dysplasia TREATMENT: cortenemas, Asacol, Rowasa, prednisone, and imodium [place] 12/2023- Ileum was normal. [place] 1 inflammation [...] 199 mg/dL Final COLONOSCOPY 01/20/2024 Final Value:[facility] Endoscopy Procedure Date: 01/20/2024 10:01 AM Patient Name: Brian Rodriguez Date of : 1950 Age: 73 Order #: [id number] Instrument Name: [id number] Procedure: Colonoscopy Indications: Follow-up of left-sided chronic [...] by the physician, the nurse and the appliance technician in the pre-procedure area in the [...] 10:01 AM Surgical Pathology Report 01/20/2024 Final Value:[id number] Location: 4T; EA12; A The signing pathologist [...] MD Verified: 01/29/2024 12:04 Pathologist Performed at: -[facility] Dept. of Pathology, [facility] [address], [place] [address] Senior Risk Analyst: Joana Soler MD, [place], [place] Certificate: [id number] SPECIMEN(S) SUBMITTED A - right colon, biopsy [...] for cramping - Repeat routine labs today( [facility]) and submit stool calprotectin ( [facility]). - Follow up with Dermatology regarding skin rash on your groin. - Follow up with Dr. Barlow in 4 months Please contact me if there are any further questions regarding the care of this patient. Shan Weinberg APRN [facility] Section of Gastroenterology and Hepatology [address] [address] documented in this encounter Plan of Treatment Upcoming Encounters Date Type Department Care Team (Late st Contact Info) Description 08/15/2024 9:00 AM EDT Office [place] [address] Dion Barlow MD [facility] [place] [address] 09/01/2024 9:40 AM EDT Office Visit Cardiology at [address] [place] [address] Franky Shaver MD [facility] [place] [address] 09/01/2024 11:20 AM EDT Office Visit Dermatology at [facility] [address] [place] [address] Gómez Mercer MD [facility] [place] [address] 09/21/2024 2:45 PM EDT Office Visit [place] [address] Trung Hoyos MD [facility] [place] [address] documented as of this encounter Procedures Procedure [...] PM EDT) C Diff Interp Negative Negative [facility] Comment: Ag/Tox Neg C. diff?? Negative Clostridium difficile is not present in the specimen. If patient is having diarrhea suspected to be from an infectious cause, then Soap & Water Contact Precautions are still required. Stool 06/06/2024 5:30 PM EDT 06/07/2024 1:32 PM EDT Narrative Resulting Agency Comment Spec In Lab MonalisaDg Weinberg OSTEOPATHY DOCTOR MICROBIOLOGY - GE NERAL ORDERABLES Performing Organization Address [facility]/[place]UST Co de Phone Number [facility] [place] [address] * (ABNORMAL) Calprotectin, Stool (06/06/2024 5:30 PM EDT) Pathologist [facility] Calprotectin, Stool 112(H) <=79 mcg/g [facility] Comment: Calprotectin Concentration ? Interpretation ? < 80 mcg/g ?Normal ? 80 ? 160 mcg/g ?Borderline ? >160 mcg/g ?Elevated Stool 06/06/2024 5:30 PM EDT 06/07/2024 1:07 PM EDT Narrative Resulting Agency Comment Spec In Lab MonalisaDg Weinberg OSTEOPATHY DOCTOR BODY FLUIDS AND S TOOLS ORDERABLES Performing Organization Address [facility] de Phone Number [facility] [place] [address] * Differential, Automated (06/06/2024 9:04 AM EDT) Pathologist [facility] Neutrophil % 70.3 % [facility] Neutrophil Absolute 4.36 1.70 - 6.10 x10(3)/[facility] Lymph % 19.7 % [facility] Lymphocytes Abs 1.2 0.9 - 3.2 x10(3)/[facility] Monocyte % 7.7 % [facility] Monocyte Abs 0.5 0.3 - 0.9 x10(3)/[facility] Eos % 1.3 % [facility] Eosinophils Abs 0.1 0.0 - 0.4 x10(3)/[facility] Basophil % 0.5 % [facility] Baso Absolute 0.0 0.0 - 0.1 x10(3)/[facility] Immature Gran % 0.50 % [facility] Comment: Immature granulocytes(IG's)percentage and absolute count will include metamyelocytes, myelocytes, and promyelocytes. Blood smears from CBCs yielding IG's will be scanned manually for concordance. If this scan disagrees with the automated IG or if promyelocytes are noted, a manual differential will be performed. Immature Gran Absolute 0.03 0.00 - 0.04 x10(3)/[facility] Blood 06/06/2024 9:04 AM EDT 06/06/2024 9:12 AM EDT Narrative Resulting Agency Comment Spec In Lab Marcelle Weinberg OSTEOPATHY DOCTOR HEMATOLOGY ORDERA BLES [facility] [place] [address] * (ABNORMAL) Hemogram (06/06/2024 9:04 AM EDT) White Blood Cell 6.2 4.0 - 9.5 x10(3)/mc L [facility] Red Blood Cell 3.68(L) 4.58 - 5.54 x10(6)/mc L [facility] Hemoglobin 12.0(L) 13.7 - 16.5 g/dL [facility] Hematocrit 35.7(L) 40.5 - 48.5 % [facility] Mean Cell Volume 97.0(H) 82.9 - 93.1 fL [facility] Mean Cell Hemoglobin 32.6(H) 27.5 - 32.1 pg [facility] Mean Cell Hemoglobin Concentration 33.6 32.0 - 35.7 g/dL [facility] Platelet 168 145 - 357 x10(3)/mc L [facility] RDW Standard Deviation 46.7(H) 36.0 - 45.0 fL [facility] RDW coefficient of variation 13.1 11.4 - 13.8 % [facility] Mean Platelet Volume 11.3 7.6 - 12.9 [facility] NRBC% auto 0.0 % [facility] NRBC Absolute 0.000 0.000 - 0.000 x10(3)/mc L [facility] Blood 06/06/2024 9:04 AM EDT 06/06/2024 9:12 AM EDT Narrative Resulting Agency Comment Spec In Lab Marcelle Weinberg OSTEOPATHY DOCTOR HEMATOLOGY ORDERA BLES Performing Organization Address City/[facility]/ZIP Co de Phone Number [facility] [place] [address] * (ABNORMAL) CRP, acute inflammation (06/06/2024 9:04 AM EDT) C-Reactive Protein 6.4(H) <=4.9 mg/L [facility] Blood 06/06/2024 9:04 AM EDT 06/06/2024 9:12 AM EDT Narrative Resulting Agency Comment Spec In Lab Marcelle Weinberg OSTEOPATHY DOCTOR CHEMISTRY ORDERAB LES [facility] [place] [address] * Sedimentation rate (06/06/2024 9:04 AM EDT) [...] Agency Comment Spec In Lab MonalisaDg Weinberg OSTEOPATHY DOCTOR HEMATOLOGY ORDERA BLES [facility] [place] [address] * Comprehensive metabolic panel (non-fasting) (06/06/2024 9:04 AM EDT) Glucose 136 65 - 199 mg/dL [facility] Comment:Diabetes: >=200 mg/d L plus symptoms Blood Urea Nitrogen 16 10 - 20 mg/dL [facility] Creatinine 1.05 0.80 - 1.50 mg/dL [facility] Sodium 144 135 - 145 mmol/L [facility] Potassium 4.2 3.5 - 5.0 mmol/L [facility] Comment: Please note: ??Patients with WBC >100,000 may have falsely elevated Potassium levels. ??For accurate Potassium quantification in these patients send serum separator tube (gold top) for subsequent determinations. ??Contact the Clinical Chemistry Laboratory if there are any questions. Chloride 107 98 - 107 mmol/L [facility] Carbon Dioxide 26 22 - 31 mmol/L [facility] Anion Gap 11 5 - 15 mmol/L [facility] Calcium 9.8 8.5 - 10.5 mg/dL [facility] Protein, Total 7.6 6.1 - 8.0 g/dL [facility] Albumin 4.1 3.2 - 5.2 g/dL [facility] Aspartate Aminotransferase 16 0 - 39 unit/L [facility] Alanine Aminotransferase 18 0 - 55 unit/L [facility] Alkaline Phosphatase 71 40 - 130 unit/L [facility] Bilirubin, Total 0.5 0.2 - 1.3 mg/dL [facility] Est Glomerular Filtration Rate 74 >=60 mL/min/1. 73 m?? [facility] [...] APRN CHEMISTRY ORDERAB LES Performing Organization Address City/State/[place] Co de Phone Number [facility] [place] [address] documented in this encounter Visit Diagnoses Diagnosis Left sided colitis without complications Left sided ulcerative (chronic) colitis documented in this encounter Care Teams Blocker And Cutter Contact Lens Relationship Specialty Start Date End Date Deacon Watters APRN [address] [place] [address] PCP - General Family Medicine 02/17/22 documented as of this encounter
--- OUTSIDE RECORDS SUMMARY | 2024-07-22 13:05 | XMS_ITS | Encounter Summary ---
Author Organization [facility] Address [facility] [address] Care Team Providers Care Coat Checker Name Role Phone Deacon Watters APRN Primary Care Provider +1- [phone] Encounter Details Date Type Department Care Team (Late st Contact Info) Description 06/29/2024 [place] [address] Ramakrishna Elliott MD [facility] [place] [address] Social History Tobacco Use Types Packs/Day Years [...] Date: 06/29/24 Referring Provider: William Patient Location: [facility] HPI: 74 yoM w/ PMHx of [...] as tolerated - TTE - plan for [facility] Recommendations: Above recommendations were based on my discussion with Dr. briscoe; I have not personally interviewed or examined this patient. Advised to call the transfer center back with any changes in the patient condition. Ramakrishna Elliott MD Vamp Strap Ironer documented in this encounter Plan of Treatment Upcoming Encounters Date Type Department Care Team (Late st Contact Info) Description 08/15/2024 9:00 AM EDT Office [place] [address] Dion Barlow MD [facility] [place] [address] 09/01/2024 9:40 AM EDT Office Visit Cardiology at [address] [place] [address] Franky Shaver MD [facility] [place] [address] 09/01/2024 11:20 AM EDT Office Visit Dermatology at [facility] [address] [place] [address] Gómez Mercer MD [facility] DR EDDIE [place] [address] 09/21/2024 2:45 PM EDT Office Visit Pain and Spine Center at [facility] [place] [address] Trung Hyoos MD [facility] [place] [address] documented as of this encounter Visit Diagnoses Not on filedocumented in this encounter Care Teams Coat Checker Relationship Specialty Start Date End Date Deacon Watters, CABLE SPLICER APPRENTICE [address] [place] [address] PCP - General Family Medicine 02/17/22 documented as of this encounter
--- OUTSIDE RECORDS SUMMARY | 2024-07-22 13:05 | XMS_ITS | Encounter Summary ---
Author Organization [facility] Address [facility] [place] [address] Care Team Providers Care Soldering Machine Operator Automatic Name Role Phone Duong Deacon eWlls APRN Primary Care Provider +1- [phone] Reason for Visit * Reason Comments Rash Encounter Details Date Type Department Care Team (Late st Contact Info) Description 06/07/2024 1:20 PM EDT Office Visit Dermatology at [facility] [address] [place] [address] Gómez Mercer MD [facility] [place] [address] Tinea cruris Social History Tobacco Use Types [...] weeks for Tinea Cruris []Note routed to attendance secretary []Recall placed in scheduling system [x]Appointment scheduled at checkout Scribe attestation: Danyell Anton [facility] PAVILION[facility]duardo has performed the documentation for this encounter inthe presence of and acting as a scribe for Gómez Mercer MD. I performed the above scribed service and agree with the accuracy of the documentation in this encounter. Reviewed and signed by: Gómez Mercer MD Dermatology [facility] Patient seen and evaluated with staff insurance sales agent: Maria G Padilla MD Dermatology [facility] * Maria G Padilla MD - 06/07/2024 [...] as documented. Maria G Padilla MD Staff Shuttlecock Feather Trimmer Department of Dermatology [facility] documented in this encounter Plan of Treatment Upcoming Encounters Date Type Department Care Team (Late st Contact Info) Description 08/15/2024 9:00 AM EDT Office [place] [address] Dion Barlow MD [facility] [place] [address] 09/01/2024 9:40 AM EDT Office Visit Cardiology at [address] [phone] Franky Shaver MD [facility] [place] [address] 09/01/2024 11:20 AM EDT Office Visit Dermatology at [facility] [address] [place] [address] Gómez Mercer MD [facility] DR EDDIE [place] [address] 09/21/2024 2:45 PM EDT Office Visit [place] [address] Trung Hoyos MD [facility] [place] [address] documented as of this encounter Visit Diagnoses Diagnosis Tinea cruris Dermatophytosis of groin and perianal area documented in this encounter Additional Health Concerns Infection Onset Date Last Indicated Resolved Time Rule Out C. difficile 06/07/2024 06/06/20242023 2:27 PM EDT documented as of this encounter Care Teams Soldering Machine Operator Automatic Relationship Specialty Start Date End Date Deacon Watters APRN [address] [place] [address] PCP - General Family Medicine 02/17/22 documented as of this encounter
--- OUTSIDE RECORDS SUMMARY | 2024-07-22 13:05 | XMS_ITS | Encounter Summary ---
Author Organization [facility] [address] Care Team Providers Care Line Out Worker Name Role Phone Deacon Watters APRN Primary Care Provider +1- [phone] Encounter Details Date Type Department Care Team (Late st Contact Info) Description 06/29/2024 7:25 PM EDT Ancillary Procedure [place] [phone] Deacon Watters APRN [address] [place] [address] Social History Tobacco Use Types Packs/Day Years [...] 9:00 AM EDT Office [place] [address] Dion Barlow MD [facility] [place] [address] 09/01/2024 9:40 AM EDT Office Visit Cardiology at [address] [place] [address] Franky Shaver MD [facility] [place] [address] 09/01/2024 11:20 AM EDT Office Visit Derm[facility] at [facility] [address] [place] [address] Gómez Mercer MD [facility] [place] [address] 09/21/2024 2:45 PM EDT Office Visit Pain and Spine Center at [facility] [place] [address] Trung Hoyos MD [facility] [place] [address] documented as of this encounter Procedures Procedure Name Priority Date/Time Associated Diagnosis Comments FILM LIBRARY STORAGE ONLY DX CHEST Routine 06/29/2024 7:22 PM EDT documented in this encounter Results * Film Library- Storage Only DX Chest (06/29/2024 7:22 PM EDT) Narrative [facility] - 06/29/2024 7:22 PM EDT This exam is auto-finalizing. It's purpose is for storage only. Deacon Watters APRN IMG FILM LIBRARY O RDERABLES [place], [place] documented in this encounter Visit Diagnoses Not on filedocumented in this encounter Care Teams Line Out Worker Relationship Specialty Start Date End Date Deacon Watters APRN [address] [place] [address] PCP - General Family Medicine 02/17/22 documented as of this encounter
--- OUTSIDE RECORDS SUMMARY | 2024-07-22 13:05 | XMS_ITS | Encounter Summary ---
Author Organization [facility] Address [facility] [place] [address] Care Team Providers Care Plate Printer Name Role Phone Duong Deacon Wells APRN Primary Care Provider +1- [phone] Reason for Visit * Reason Comments Basal Cell Carcinoma Encounter Details Date Type Department Care Team (Latest Contact Info) Description 02/17/2024 8:00 AM EDT Procedure visit Dermatology at [facility] [address] [place] [address] Kingsley Finn MD [facility] DR [place] [address] Basal cell carcinoma of right side of [...] is performed when alternative procedures such as [id number] stitching is not optimal. Your graft may [...] the first week unless told differently. Some instructional media services technician may need to be delayed or [...] as often as is recommended by your credentials specialist, for new skin cancers. This is once [...] it. If after hours, please call the industrial locomotive operator or [phone] and ask for the credentials specialist on-call. If you have any non-urgent questions or concerns, please feel free to call my office or contact me through our patient portal, [email or web address], at [email or web address] How to contact us during business hours Dermatology at [facility] [address]: Mohs scheduling or Mohs follow-up appointments: [phone] documented in this encounter Progress Notes * [...] and follow up with his or her credentials specialist or other skin provider. 5. Discussed avoiding [...] Reviewed and signed by: Kingsley Finn Dermatology [facility] * Kingsley Finn MD - 02/17/2024 8:00 AM EDT Mohs micrographic Surgery Operative Report Patient name: Brian Rodriguez : 1950 Date: 02/17/2024 Staff Surgeon and Pathologist: Kingsley Finn MD PhD Nursing/Flare Breaker(s): Paula Baez RN, Zuly Morales RN, Barbara Platt PANTS BUSHELER, Olga Yostegand-Kaylin ROBINS, Vladimir Ward CMA, Inge ArellanoSwain Community HospitalGuaynabo CHRONIC CARE NURSE, Leah PATEL Basting Puller (s): Vladimir Alejandro CMA Pre-operative diagnosis: Basal [...] The site was confirmed with the patient/authorized tax compliance representative/referring physician and/or a photograph form time [...] Surgery and Dermatologic Oncology Department of Dermatology [address] [place] [address] OPERATIVE REPORT (REPAIR) Patient Name: Brian Rodriguez Age: 73 y.o. : 1950 Date: 02/17/2024 Staff Surgeon: Kingsley Finn MD PhD Assistants: Zuly Morales RN; Shannen Garcia MD; Magda Edouard MD Diagnosis: Status post Mohs micrographic surgery defect/wound Site: right nasal dorsum Final Defect Size prior to repair: 4 x 2.9 cm Donor site: right nasolabial fold INDICATION: repair and moravian of anatomy/function PROCEDURE: Full-thickness skin graft A [...] Rodriguez Staff Surgeon: Kingsley Finn MD PhD Vp Project(s): same as above budget assistant: Zuly Morales RN; Magda Edouard MD; Shannen Garcia MD Date: 02/17/2024 Clinical Diagnosis: skin and soft tissue defect status post Mohs micrographic surgery Location/Site: right nasal dorsum Indication: repair of wound with moravian of anatomy/function Defect size to be repaired: [...] Surgery and Dermatologic Oncology Department of Dermatology [address] [place], [place] [id number] Note initiated by Zuly Morales RN. Zuly Morales RN has performed the documentation for this encounter in the presence of and acting as a scribe for Dr. Finn I performed the above scribed service and agree with the accuracy of the documentation in this encounter. Reviewed and signed by: Kingsley Finn Dermatology [facility] documented in this encounter Plan of Treatment Upcoming Encounters Date Type Department Care Team (Late st Contact Info) Description 08/15/2024 9:00 AM EDT Office [place] [address] Dion Barlow MD [facility] [place] [address] 09/01/2024 9:40 AM EDT Office Visit Cardiology at [address] [place] [address] Franky Shaver MD [facility] [place] [address] 09/01/2024 11:20 AM EDT Office Visit Dermatology at [facility] [address] [place] [address] Gómez Mercer MD [facility] [place] [address] 09/21/2024 2:45 PM EDT Office Visit Pain and Spine Center at [facility] [place] [address] Trung Hoyos MD [facility] [address] documented as of this encounter Visit Diagnoses Diagnosis Basal cell carcinoma of right side of nose Basal cell carcinoma of skin of other and unspecified parts of face documented in this encounter Care Teams Plate Printer Relationship Specialty Start Date End Date Deacon Watters, JAZMINE [address] [facility] [place] [address] PCP - General Family Medicine 02/17/22 documented as of this encounter
--- OUTSIDE RECORDS SUMMARY | 2024-07-22 13:05 | XMS_ITS | Encounter Summary ---
Author Organization Formerly [facility] [place] [address] Care Team Providers Care Tile Professional Name Role Phone Deacon Watters APRN Primary Care Provider +1- [phone] Encounter Details Date Type Department Care Team (Late st Contact Info) Description 06/09/2024 Telephone [place] [phone] Marcelle Weinberg COOPER HELPER [facility] [place] [address] Social History Tobacco Use Types Packs/Day Years [...] 9:00 AM EDT Office Visit [place] [phone] Dion Barlow MD [facility] [place] [address] 09/01/2024 9:40 AM EDT Office Visit Cardiology at [address] [address] Franky Shaver MD [facility] [place] [address] 09/01/2024 11:20 AM EDT Office Visit Dermatology at [address] [address] Gómez Mercer MD [facility] DR EDDIE [place] [address] 09/21/2024 2:45 PM EDT Office Visit [facility] [place] [phone] Trung Hoyos MD [facility] [place] [address] Scheduled Orders Name Type Priority Associated Diagnoses Orde r Schedule Calprotectin, Stool Lab Routine Left sided colitis without complications Expected: 08/01/2024 (Approximate), Expires: 06/09/2025 documented as of this encounter Visit Diagnoses Diagnosis Left sided colitis without complications Left sided ulcerative (chronic) colitis documented in this encounter Care Teams Tile Professional Relationship Specialty Start Date End Date Deacon Watters APRN [address] [place] [address] PCP - General Family Medicine 02/17/22 documented as of this encounter
--- OUTSIDE RECORDS SUMMARY | 2024-07-22 13:05 | XMS_ITS | Encounter Summary ---
Author Organization [facility] [place] [address] Care Team Providers Care Director Of Distribution Name Role Phone Deacon Watters APRN Primary Care Provider +1- [phone] Encounter Details Date Type Department Care Team (Late st Contact Info) Description 06/06/2024 Telephone [place] [phone] Marcelle Weinberg ORE FEEDER [facility] [place] [address] Social History Tobacco Use Types Packs/Day Years [...] 9:00 AM EDT Office [place] [phone] Dion Barlow MD [facility] [place] [address] 09/01/2024 9:40 AM EDT Office Visit Cardiology at [address] [address] Franky Shaver MD [facility] [place] [address] 09/01/2024 11:20 AM EDT Office Visit Dermatology at [address] [address] Gómez Mercer MD [facility] [place] [address] 09/21/2024 2:45 PM EDT Office Visit [facility] [place] [phone] Trung Hoyos MD [facility] [place] [address] documented as of this encounter Visit Diagnoses Not on filedocumented in this encounter Care Teams Director Of Distribution Relationship Specialty Start Date End Date Deacon Watters APRN [address] [place] [address] [address] [facility] [address] [place] [address] PCP - General Family Medicine 02/17/22 documented as of this encounter
--- OUTSIDE RECORDS SUMMARY | 2024-07-22 13:05 | XMS_ITS | Encounter Summary ---
Author Organization [facility]ly [facility] [place] [address] Care Team Providers Care Sanitary Aide Name Role Phone Deacon Watters APRN Primary Care Provider +1- [phone] Reason for Visit * Reason Comments Neck Pain * Consultation (Routine) - Closed Specialty Diagnoses / Procedures Referred By Contac t Referred To Contact Pain and Spine Center Diagnoses Spondylosis of cervical region without myelopathy or radiculopathy Santiago Morales PA [facility] [place] [address] [facility] [place] [address] Referral ID Status Reason Start Date Expiration Date V isits Requested Visits Authorized [id number] Closed Pain Consult 04/06/2024 04/06/2025 1 1 Encounter Details Date Type Department Care Team (Latest Contact Info) Description 06/22/2024 8:00 AM EDT Office Visit [place] [address] Trung Hoyos MD [facility] [place] [address] Radiculopathy of cervical region (Primary Dx) Social History Tobacco Use Types Packs/Day Years Used Date Smoking Tobacco: Former Cigarettes 4 30 1 12/01/1961 - 10/01/1992 Smokeless Tobacco: Former Chew Comments:Denies vaping Alcohol Use Standard Drinks/Week Comments Yes 0 (1 standard drink = 0.6 oz pur e alcohol) twice a year [facility] Util[facility] Answer Date Recorded In the past [...] any time in the past 12 m [facility], were you homeless or living in [...] from the original note were not included. [facility] Initial Consultation Note DOS: 06/22/24 : 1950 Brian Rodriguez is a 73 y.o. year old male who presents to the pain clinic today at the referral of: Santiago Morales PA [facility] [address] for consideration of treatment for his pain CC: Left-sided neck pain HPI: Brian Rodriguez prefers to be called Eduardo. He is alone today for this visit. He describes left-sided neck pain associated with some left hand weakness. 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 He indicated that he once fell over 50 feet onto his head holding his hard hat, injuring his neck, and crushing his right hand. He was taken to [facility] at that time. 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 Of note he helped build [facility] in the late or early He indicated he had a cortisone injection in his right shoulder which was helpful once. He had a possible lumbar epidural steroid injection at [facility] at least 25 years ago that [...] 3.66) performed by Dion Osullivan MD at [facility] PRO COLONOSCOPY, BIOPSY N/A 02/22/2019 COLONOSCOPY FLEXIBLE, WITH BX (WRVU 3.66) performed by Dion Osullivan MD at [facility] PRO COLONOSCOPY, BIOPSY N/A 03/28/2022 COLONOSCOPY FLEXIBLE, WITH BX (WRVU 3.66) performed by Mona Turner MD at [facility] PRO COLONOSCOPY, BIOPSY N/A 01/20/2024 COLONOSCOPY FLEXIBLE, WITH BX (WRVU 3.56) performed by Anthony Hamlin MD at [facility] PRO COLONOSCOPY, DIAGNOSTIC 11/27/2011 COLONOSCOPY, DIAGNOSTIC performed by Dion OSULLIVAN at [facility] PRO COLONOSCOPY, DIAGNOSTIC 07/13/2014 COLONOSCOPY, DIAGNOSTIC performed by Dion Osullivan MD at [facility] PRO COLONOSCOPY, REMV LESN, SNARE N/A 02/22/2019 COLONOSCOPY, POLYPECTOMY, REMOVAL LESION BY SNARE (WRVU 4.67) performed by Dion Osullivan MD at [facility] PRO COLONOSCOPY, REMV LESN, SNARE N/A 02/26/2021 COLONOSCOPY, POLYPECTOMY, REMOVAL LESION BY SNARE (WRVU 4.67) performed by Dion Osullivan MD at [facility] PRO SIGMOIDOSCOPY, DIAGNOSTIC 03/16/2012 FLEXIBLE SIGMOIDOSCOPY performed by YUDI MALLOY at [facility] PRO UPPER GI ENDOSCOPY, DIAGNOSTIC N/A 04/28/2019 EGD, UPPER GI ENDOSCOPY performed by Iza Coates MD at [facility] UPPER GI ENDOSCOPY, EXAM 10/01/2012 UPPER GI ENDOSCOPY performed by Dion OSULLIVAN at [facility] FAMILY HISTORY: No family history on [...] of Motion -limited Special tests - Neurologic: pricing manager - grossly intact Reflexes - 2+ and [...] the potential roles for physical therapy, the [facility] functional shinto program, and the [facility] active pain care service [employer] [employer]. He expressed interest in the above and wished to consider prior to enrolling. Ross may follow-up in 2 - 3 months or on an as needed basis Thank you for allowing us the opportunity to participate in Brian's care. I spent 45 minutes in direct [id number] time, with 40 minutes counseling him regarding treatment options and addressing specific questions. Thank you for referring him to our clinic. Trung Hoyos MD, MS Steam Clean Machine Operator of Anesthesiology [facility] [address] [address] / [facility] CC: Santiago Morales PA [facility] PAIN MANAG[facility] [place] [phone] documented in this encounter Plan of Treatment Upcoming Encounters Date Type Department Care Team (Late st Contact Info) Description 08/15/2024 9:00 AM EDT Office [place] [address] Dion Osullivan MD [facility] [place] [address] 09/01/2024 9:40 AM EDT Office Visit Cardiology at [address] [phone] Franky Shaver MD [facility] [place] [address] 09/01/2024 11:20 AM EDT Office Visit Dermatology at [facility] [address] [place] [phone] Gómez Mercer MD [facility] [address] [place] [address] 09/21/2024 2:45 PM EDT Office Visit [place] [address] Trung Hoyos MD [facility] [place] [address] Scheduled Referrals Name Type Priority Associated Diagnoses Orde r Schedule Referral to Pain and Spine Center (Internal only) Outpatient Referral Routine Spondylosis of cervical region without myelopathy or radiculopathy Ordered: 04/06/2024 documented as of this encounter Visit Diagnoses Diagnosis Radiculopathy of cervical region- Primary Brachial neuritis or radiculitis nos documented in this encounter Care Teams Sanitary Aide Relationship Specialty Start Date End Date Deacon Watters, AIR COMPRESSOR OPERATOR [address] [place] [address] PCP - General Family Medicine 02/17/22 documented as of this encounter
--- OUTSIDE RECORDS SUMMARY | 2024-07-22 13:05 | XMS_ITS | Encounter Summary ---
Author Organization [facility] Address [facility] [place] [address] Care Team Providers Care Maturity Checker Name Role Phone Duong Deacon Wells APRN Primary Care Provider +1- [phone] Reason for Visit * Reason Comments Basal Cell Carcinoma Encounter Details Date Type Department Care Team (Latest Contact Info) Description 02/17/2024 7:45 AM EDT Clinical Support Dermatology at [facility] [address] [place] [address] Kingsley Finn MD [facility] [address] [place] [address] Basal cell carcinoma of right side of [...] 9:00 AM EDT Office [place] [address] Dion Barlow MD [facility] [place] [address] 09/01/2024 9:40 AM EDT Office Visit Cardiology at [address] [address] Franky Shaver MD [facility] [place] [address] 09/01/2024 11:20 AM EDT Office Visit Dermatology at [facility] [address] [place] [address] Gómez Mercer MD [facility] DR EDDIE [place] [address] 09/21/2024 2:45 PM EDT Office Visit Pain and Spine Center at [facility] [place] [phone] Trung Hoyos MD [facility] [place] [address] documented as of this encounter Visit Diagnoses Diagnosis Basal cell carcinoma of right side of nose Basal cell carcinoma of skin of other and unspecified parts of face documented in this encounter Care Teams Maturity Checker Relationship Specialty Start Date End Date Deacon Watters APRN [address] [place] [address] PCP - General Family Medicine 02/17/22 documented as of this encounter
--- OUTSIDE RECORDS SUMMARY | 2024-07-22 13:05 | XMS_ITS | Encounter Summary ---
Author Organization [facility] [place] [address] Care Team Providers Care Technical Designer Name Role Phone Deacon Watters APRN Primary Care Provider [phone] Reason for Visit * Auth/Cert (Routine) Specialty Diagnoses / Procedures Referred By Contac t Referred To Contact Diagnoses NSTEMI (non-ST elevated myocardial infarction) NSTEMI Triston Godinez MD [facility] [place] [address] [facility] Referral ID Status Reason Start Date Expiration Date Visits Re quested Visits Authorized [id number] 1 1 Encounter Details Date Type Department Care Team (Late st Contact Info) Description 07/01/2024 2:30 PM EDT - 07/01/2024 3:30 PM EDT [place] [address] Lizzette Hayden MD [facility] [place] [address] CARDIAC CATHETERIZATION Social History Tobacco Use Types Packs/Day Years Used Date Smoking Tobacco: Former Cigarettes 4 30 1 12/01/1961 - 10/01/1992 Smokeless Tobacco: Former Chew Comments:Denies vaping Alcohol Use Standard Drinks/Week Comments Yes 0 (1 standard drink = 0.6 oz pur e alcohol) twice a year [facility] Utilities Answer Date Recorded In the past 12 months has th e electric, gas, oil, or water [employer] threatened to shut off services in your [...] time in the past 12 m [place], were you homeless or living in a mcc (including now)? No 07/01/2024 DH IPV Inpatient [...] HLD, migraines, DM2, and UC who [facility] for [facility] and was transferred to [facility] for NSTEMI found [...] He was discharged with 6 days of [id number] mg BID after receiving 1 day of [...] Jardiance allergy. PCP Contact Information: Deacon Watters, PHOTOVOLTAIC INSTALLATION TECHNICIAN [address] [facility] 1 / [place] [address] Discharge Diagnoses (Hospital Problems) and Secondary Diagnoses [...] #HTN #HLD Mr. Rodriguez was transferred to [facility] for NSTEMI with trops of 4143 and 20,000 at the OSH, where he was loaded with ASA, plavix and started on heparin gtt. At [facility], his trops trended down [...] to exclude urinary tract infection. Cardiac Catheterization: ([facility]) RIGHT dominance LVEDP 10 Artery [...] 9:00 AM Dion Osullivan MD Gastroenterology at [facility] Arrive at: Reservations Specialist Area [phone] 09/01/2024 11:20 AM Gómez Mercer MD Dermatology at [facility] Arrive at: Reservations Specialist [address] [place] [address] 09/21/2024 2:45 PM Trung Hoyos MD Pain and Spine Center at [facility] Arrive at: Reservations Specialist Area [phone] Future Orders Complete By Expires Referral to Cardiac Rehab [[id number] Custom] As directed Process Instructions: If no progress note charted, please enter Clinical details in comments. Scheduling Instructions: Questions: My question or request is: NSTEMI, PCI, HFrEF- cardiac rehab at [facility] Referral to Cardiology [REF12 Custom] As directed Process Instructions: If no progress note charted, please enter Clinical details in comments. Scheduling Instructions: Questions: My question or request is: NEW PATIENT - hospital follow up for NSTEMI s/p PCI to LCx and new HFrEF, does not have appt on [employer] please call him with appt slot General [...] appointments: During 8am-5pm Thursday through Thursday call [phone] to speak with a nurse in the cardiology clinic All other times call [phone] and ask to speak to the zookeeper high tension tester. Home oxygen therapy: none Arrangements for VNA/home care: none Follow up Appointments: Future Appointments Date Time Provider Department Center 08/15/2024 9:00 AM Dion Osullivan MD [facility] GASTRO [facility] 09/01/2024 11:20 AM Gómez Mercer MD [facility] 09/21/2024 2:45 PM Trung Hoyos MD [facility] Pain Sp [facility] Fern Cutter: [facility] - referral sent and they are aware you need an appointment. If they do not reach out to you with an appointment in 1 week, call and ask for the cardiology clinic. PCP: Deacon Watters APRN at [phone] on July 08 at 4 PM Your Inpatient Doctor(s) at [facility]: Armond Denny MD - Attending physician Your Primary Care Provider: Deacon Watters APRN [address] / [place] [address] If you have non-emergent questions between now and the time of your follow up appointments: During 8am-5pm Thursday through Thursday call [phone] to speak with a nurse in the cardiology clinic All other times call [phone] and ask to speak to the zookeeper high tension tester. Provider Contact Information: Deacon Watters APRN [address] [facility] / [place] [address] Discharge References/Attachments: Discharge References/Attachments None For questions regarding this document or issues relating to this hospitalization on the Medical Service, please contact your inpatient physician through the [facility] Business Solutions Consultant . Issues afterhours and on weekends will be handled by the Fern Cutter staff on-call. Signed: Ronel Hensley MD Internal [...] appointments: During 8am-5pm Thursday through Thursday call [phone] to speak with a nurse in the cardiology clinic All other times call [phone] and ask to speak to the zookeeper high tension tester. Home oxygen therapy: none Arrangements for VNA/home care: none Follow up Appointments: Future Appointments Date Time Provider Department Center 08/15/2024 9:00 AM Dion Osullivan MD [facility] GASTRO [facility] 09/01/2024 11:20 AM Gómez Mercer MD [facility] 09/21/2024 2:45 PM Trung Hoyos MD [facility] Pain Sp [facility] Fern Cutter: [facility] - referral sent and they are aware you need an appointment. If they do not reach out to you with an appointment in 1 week, call and ask for the cardiology clinic. PCP: Deacon Watters APRN at [phone] on July 08 at 4 PM Your Inpatient Doctor(s) at [facility]: Armond Denny MD - Attending physician Your Primary Care Provider: Deacon Watters APRN [address] [place] [address] If you have non-emergent questions between now and the time of your follow up appointments: During 8am-5pm Thursday through Thursday call [phone] to speak with a nurse in the cardiology clinic All other times call [phone] and ask to speak to the zookeeper high tension tester. documented in this encounter Medications at Time [...] migraines, DM2, and UC whowas transferred to [facility] for NSTEMI and now [...] 3.66) performed by Dion Osullivan MD at [facility] ENDOSCOPY PRO COLONOSCOPY, BIOPSY N/A 02/22/2019 COLONOSCOPY FLEXIBLE, WITH BX (WRVU 3.66) performed by Dion Osullivan MD at [facility] PRO COLONOSCOPY, BIOPSY N/A 03/28/2022 COLONOSCOPY FLEXIBLE, WITH BX (WRVU 3.66) performed by Mona Turner MD at [facility] PRO COLONOSCOPY, BIOPSY N/A 01/20/2024 COLONOSCOPY FLEXIBLE, WITH BX (WRVU 3.56) performed by Anthony Hamlin MD at [facility] END[facility] PRO COLONOSCOPY, DIAGNOSTIC 11/27/2011 COLONOSCOPY, DIAGNOSTIC performed by Dion OSULLIVAN at [facility] PRO COLONOSCOPY, DIAGNOSTIC 07/13/2014 COLONOSCOPY, DIAGNOSTIC performed by Dion Osullivan MD at [facility] PRO COLONOSCOPY, REMV LESN, SNARE N/A 02/22/2019 COLONOSCOPY, POLYPECTOMY, REMOVAL LESION BY SNARE (WRVU 4.67) performed by Dion Osullivan MD at [facility] PRO COLONOSCOPY, REMV LESN, SNARE N/A 02/26/2021 COLONOSCOPY, POLYPECTOMY, REMOVAL LESION BY SNARE (WRVU 4.67) performed by Dion Osullivan MD at [facility] PRO SIGMOIDOSCOPY, DIAGNOSTIC 03/16/2012 FLEXIBLE SIGMOIDOSCOPY performed by YUDI MALLOY at [facility] PRO UPPER GI ENDOSCOPY, DIAGNOSTIC N/A 04/28/2019 EGD, UPPER GI ENDOSCOPY performed by Iza Coates MD at [facility] UPPER GI ENDOSCOPY, EXAM 10/01/2012 UPPER GI ENDOSCOPY performed by Dion OSULLIVAN at [facility] Social History: Home set-up: Lives on the first floor of a two level home in [place], [place] Stairs: FOS with bilateral rails vs a few stairs through the back to the first level, 8 step between rooms Bathroom Set-up: Tub-shower with grab bars, no shower chair Baseline Mobility: Ambulates without an assistive device. Independent with I/ADLs, including driving. 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 He enjoys taking care of his property including [place]. He sleeps in a flat bed. 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 male admitted on 06/30/2024 with PMHx of HTN, HLD, migraines, DM2, and UC who was transferred to [facility] for NSTEMI and now found to have HFrEF. Pt now s/p PCIto LCX. Past Medical History: Diagnosis Date Asthma 10/01/2011 Diabetes mellitus 10/01/2011 GERD (gastroesophageal reflux disease) 10/01/2011 Hearing loss 10/01/2011 Hydrocele 10/01/2011 Ulcerative colitis 10/01/2011 Past Surgical History: Procedure Laterality Date PRO COLONOSCOPY, BIOPSY N/A 02/12/2017 COLONOSCOPY FLEXIBLE, WITH BX (WRVU 3.66) performed by Dion Osullivan MD at [facility] PRO COLONOSCOPY, BIOPSY N/A 02/22/2019 COLONOSCOPY FLEXIBLE, WITH BX (WRVU 3.66) performed by Dion Osullivan MD at [facility] PRO COLONOSCOPY, BIOPSY N/A 03/28/2022 COLONOSCOPY FLEXIBLE, WITH BX (WRVU 3.66) performed by Mona Turner MD at [facility] PRO COLONOSCOPY, BIOPSY N/A 01/20/2024 COLONOSCOPY FLEXIBLE, WITH BX (WRVU 3.56) performed by Anthony Hamlin MD at [facility] PRO COLONOSCOPY, DIAGNOSTIC 11/27/2011 COLONOSCOPY, DIAGNOSTIC performed by Dion OSULLIVAN at [facility] PRO COLONOSCOPY, DIAGNOSTIC 07/13/2014 COLONOSCOPY, DIAGNOSTIC performed by Dion Osullivan MD at [facility] PRO COLONOSCOPY, REMV LESN, SNARE N/A 02/22/2019 COLONOSCOPY, POLYPECTOMY, REMOVAL LESION BY SNARE (WRVU 4.67) performed by Dion Osullivan MD at [facility] PRO COLONOSCOPY, REMV LESN, SNARE N/A 02/26/2021 COLONOSCOPY, POLYPECTOMY, REMOVAL LESION BY SNARE (WRVU 4.67) performed by Dion Osullivan MD at [facility] PRO SIGMOIDOSCOPY, DIAGNOSTIC 03/16/2012 FLEXIBLE SIGMOIDOSCOPY performed by YUDI MALLOY at [facility] PRO UPPER GI ENDOSCOPY, DIAGNOSTIC N/A 04/28/2019 EGD, UPPER GI ENDOSCOPY performed by Iza Coates MD at [facility] UPPER GI ENDOSCOPY, EXAM 10/01/2012 UPPER GI ENDOSCOPY performed by Dion OSULLIVAN at [facility] Social History: Home set-up: Lives on the first floor of a two level home in [place], [place] Stairs: FOS with bilateral rails vs a few stairs through the back to the first level, 8 step between rooms Bathroom Set-up: Tub-shower with grab bars, no shower chair Baseline Mobility: Ambulates without an assistive device. Independent with I/ADLs, including driving. 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 He enjoys taking care of his property including [place]. He sleeps in a flat bed. 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 Pager: [phone] Tray Logan OTR/L Occupational Therapy Rehabilitation Department * Armond Denny MD - 07/03/2024 7:03 AM EDT Inpatient Cardiology Progress Note Patient Name: Brian Rodriguez Date of Admission: 06/30/2024 ( Hospital Day 3 days ) Service: S2 ID: Brian Rodriguez is a 74 y.o. male with PMHx of HTN, HLD, migraines, DM2, and UC who presented [facility] for chest pain and was transferred to [facility] for NSTEMI found [...] 1809 PROBNP 2,259* Trops: OSH 4143 >20,000>> [facility] 1234 and 1274 06/30 [...] to exclude urinary tract infection. Cardiac Catheterization: ([facility]) RIGHT dominance LVEDP 10 Artery [...] DM2, and UC who was transferred to [facility] for NSTEMI and now [...] Katia Reid MD Internal Medicine PGY-3 Pager [phone], M1-S2 Service CARDIOLOGY STAFF NOTE I have personally interviewed and examined the patient and reviewed appropriate data, including labs, ECGs and other diagnostic studies. I agree with the principal findings documented above. The assessment and plan were formulated in discussion with me. Armond Denny MD, [facility] Staff Fern Cutter pie crimping machine operator * Armond Denny MD - 07/02/2024 6:17 AM EDT Inpatient Cardiology Progress Note Patient Name: Brian M Rodriguez Date of Admission: 06/30/2024 ( Hospital Day 2 days ) Service: S2 ID: Brian Rodriguez is a 74 y.o. male with PMHx of HTN, HLD, migraines, DM2, and UC [facility] and was transferred to [facility] for NSTEMI found [...] 1809 PROBNP 2,259* Trops: OSH 4143 >20,000>> [facility] 1234 and 1274 06/30 [...] to exclude urinary tract infection. Cardiac Catheterization: ([facility]) RIGHT dominance LVEDP 10 Artery [...] DM2, and UC who was transferred to [facility] for NSTEMI and now [...] 7.3. 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 - holding home glipizide and metformin [...] Ronel Hensley MD Internal Medicine PGY-1 Pager [phone], M1-S2 Service CARDIOLOGY STAFF NOTE I have personally interviewed and examined the patient and reviewed appropriate data, including labs, ECGs and other diagnostic studies. I agree with the principal findings documented above. The assessment and plan were formulated in discussion with me. Armond Denny MD, [facility] Staff Fern Cutter pie crimping machine operator * Armond Denny MD - 07/01/2024 6:15 AM EDT Inpatient Cardiology Progress Note Patient Name: Brian Rodriguez Date of Admission: 06/30/2024 ( Hospital Day 1 day ) Service: S2 ID: Brian Rodriguez is a 74 y.o. male with PMHx of HTN, HLD, migraines, DM2, and UC who presented [facility] for chest pain and was transferred to [facility] for NSTEMI found to have HFrEF. Active Problems: Active Hospital Problems Diagnosis NSTEMI (non-ST elevated myocardial infarction) Resolved Hospital Problems No resolved problems to display. 24 hr events: Yesterday - transferred to [facility] for NSTEMI Overnight - [...] 1809 PROBNP 2,259* Trops: OSH 4143 >20,000>> [facility] 1234 and 1274 last [...] DM2, and UC who was transferred to [facility] for NSTEMI and now [...] 7.3. 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 - holding home glipizide and metformin [...] Ronel Hensley MD Internal Medicine PGY-1 Pager [phone], M1-S2 Service CARDIOLOGY STAFF NOTE I have personally interviewed and examined the patient and reviewed appropriate data, including labs, ECGs and other diagnostic studies. I agree with the principal findings documented above. The assessment and plan were formulated in discussion with me. Plan for cath today and introduction of full complement of medical therapies for ACS/HFrEF. Armond Denny MD, [facility] Staff Fern Cutter pie crimping machine operator documented in this encounter H&P Notes * Joshua Díazdot Woodard, PHOTOVOLTAIC INSTALLATION TECHNICIAN - 07/01/2024 9:33 AM EDT Images from [...] PCP: Deacon Watters APRN PCP phone #: [phone] ID/Chief Complaint: Brian Rodriguez is a 74 y.o. male with PMHx of HTN, HLD, migraines, DM2, and UC who presented to [facility] for chest pain and was transferred to [facility] for NSTEMI. History of [...] infarction) Ulcerative colitis Colonoscopy 04/08/10 (Dr. Gomes [facility]) - inflammation only within the rectum and sigmoid; extent of the exam was to the hepatic flexure; biopsies proximal to the sigmoid nl Repeat exam 11/27/11 ([facility]): mildly active colitis [...] ascending colon. Several HPs and one TA. [place] 03/2022 - [place] 1 limited to rectosigmoid, [...] in the last 7068 hours. Invalid input(s): [id number] Heme: No results for input(s): LDH, HAPTOGLOBIN, [...] DM2, and UC who was transferred to [facility] for NSTEMI. Given Brian's [...] Admit to Cardiology, S2 Team Pager # [phone] #NSTEMI > trops elevated to 4143 and 20,000 at OSH - s/p ASA and Plavix load - heparin gtt - continue 81 mg ASA - continue 75 mg plavix - repeat EKG with posterior leads - restarted atorvastatin 80 mg - TTE pending - trending trops here - NPO at midnight for [facility] tomorrow #Migraines - holding propranolol [...] in an outpatient cardiac rehabilitation program at [facility] was discussed. Patient agrees to a [...] Operative Note Patient Name: Brian Rodriguez : [id number] MR#: [id number] Case Date: 07/01/2024 Surgeon: Surgeons and Role: [...] 07/01/2024 12:11 PM EDT Brian completed a [place] Advanced directive and stated that if he [...] surrogate would be surrogate decision maker per [place] surrogate decision making law. (Only good for 180 days) Any patient receiving care in [place] must abide by [place] law. The hierarchy for surrogate decision making [...] were you homeless or living in a mcc (including now)?: No In the past 12 months has the [employer], gas, oil, or water [employer] threatened to shut off services in your [...] Current DME: none Home Address confirmed as: [address] [place] [address] Social & Family Supports: All names listed below confirmed with patient as current and correct Extended Emergency Contact Information Primary Emergency Contact: Sabrina Eisenberg Address: [address] [place] [phone] [facility] Mobile Relation: Child Secondary Emergency Contact: Enrique [...] Yes ; Prescription Coverage: Yes Preferred Pharmacy: [email or web address] [address] [address] [place] Status: Patient is a : No Primary Care Provider confirmed: Deacon Watters, PHOTOVOLTAIC INSTALLATION TECHNICIAN [phone] Potential Needs for Transition of Care: none [...] 9:00 AM EDT Office [place] [address] Dion Osullivan MD [facility] [place] [address] 09/01/2024 9:40 AM EDT Office Visit Cardiology at [address] [address] Franky Shaver MD [facility] [place] [address] 09/01/2024 11:20 AM EDT Office Visit Dermatology at [address] [address] Gómez Mercer MD [facility] DR [place] [address] 09/21/2024 2:45 PM EDT Office Visit [place] [id number] Trung Hoyos MD [facility] [place] [address] Scheduled Referrals Name Type Priority Associated Diagnoses [...] PM EDT URINALYSIS BEAKER MICROSCPIC REFLEX EXAM ([facility]) Routine 07/03/2024 3:02 PM EDT [...] - 199 mg/dL 07/04/2024 2:12 PM EDT [facility] Comment:Supplemental ranges: <140 mg/dL before meals <180 mg/dL all other times of the day. Blood CAPILLARY BLOOD / Unknown 07/04/2024 1:49 PM EDT 07/04/2024 2:12 PM EDT Armond Denny MD POINT OF CARE TEST O CEE Performing Organization Address [facility] Co de Phone Number [facility] [place] [address] * (ABNORMAL) POC, GLUCOSE (07/04/2024 11:55 AM EDT) Glucometer, POC 287(H) 65 - 199 mg/dL 07/04/2024 11:55 AM EDT [facility] Comment:Supplemental ranges: <140 mg/dL before meals <180 mg/dL all other times of the day. Blood CAPILLARY BLOOD / Unknown 07/04/2024 11:55 AM EDT 07/04/2024 11:55 AM EDT Armond Denny MD POINT OF CARE TEST O RDMELISSA [facility] [place] [address] * (ABNORMAL) POC, GLUCOSE (07/04/2024 11:18 AM EDT) Glucometer, POC 259(H) 65 - 199 mg/dL 07/04/2024 11:32 AM EDT [facility] Comment:Supplemental ranges: <140 mg/dL before meals <180 mg/dL all other times of the day. Blood CAPILLARY BLOOD / Unknown 07/04/2024 11:18 AM EDT 07/04/2024 11:32 AM EDT Armond Denny MD POINT OF CARE TEST O DANIELERAOMAR Performing Organization Address City/[facility] Co de Phone Number [facility] [place] [address] * POC, GLUCOSE (07/04/2024 8:04 AM EDT) Glucometer, POC 111 65 - 199 mg/dL 07/04/2024 8:04 AM EDT [facility] Comment:Supplemental ranges: <140 mg/dL before meals <180 mg/dL all other times of the day. Blood CAPILLARY BLOOD / Unknown 07/04/2024 8:04 AM EDT 07/04/2024 8:04 AM EDT Armond Denny MD POINT OF CARE TEST O CEE Performing Organization Address City/[facility]/ZIP Co de Phone Number [facility] [place] [address] * Magnesium (07/04/2024 1:43 AM EDT) Magnesium 0.80 0.69 - 1.07 mMol/L 07/04/2024 2:23 AM EDT [facility] Blood VENOUS BLOOD SPECIMEN / Unknown IP Care Team Draw / Unknown 07/04/2024 1:43 AM EDT 07/04/2024 1:52 AM EDT Triston Godinez MD CHEMISTRY ORDERABLES [facility] [place] [address] * (ABNORMAL) Basic Metabolic Panel (07/04/2024 1:43 AM EDT) Glucose 156 65 - 199 mg/dL 07/04/2024 2:23 AM EDT [facility] Comment:Glucose Concentratio n >=200 mg/dL plus symptoms is consistent with Diabetes Mellitus. Blood Urea Nitrogen 12 10 - 20 mg/dL 07/04/2024 [facility] Creatinine 1.27 0.80 - 1.50 mg/dL 07/04/2024 2:[address] [facility] Sodium 141 135 - 145 mMol/L 07/04/2024 2:[address] [facility] Potassium 3.9 3.5 - 5.0 mMol/L 07/04/2024 2:[address] [facility] Chloride 108(H) 98 - 107 mMol/L 07/04/2024 2:[address] [facility] Carbon Dioxide 22 22 - 31 mMol/L 07/04/2024 2:[address] [facility] Anion Gap 11 5 - 15 mMol/L 07/04/2024 2:[address] [facility] Calcium 9.4 8.5 - 10.5 mg/dL 07/04/2024 2:[facility] Est Glomerular Filtration Rate - Male 59 mL/min/1. 73 m?? 07/04/2024 2:[address] [facility] Comment: This patient's estimated GFR [...] AM EDT Triston Godinez MD CHEMISTRY ORDERABLES [facility] [place] [place] [address] * (ABNORMAL) CBC (with Diff) (07/04/2024 1:43 AM EDT) White Blood Cell 5.05 4.00 - 9.50 x10(3)/mc L [facility]2024 [facility] Red Blood Cell 3.11(L) 4.58 - 5.54 x10(6)/mc L 07/04/2024 2[facility] Hemoglobin 10.5(L) 13.7 - 16.5 g/dL 07/04/2024 2:[address] [facility] Hematocrit 31.5(L) 40.5 - 48.5 % 07/04/2024 2:[address] [facility] Mean Cell Volume 101.3(H) 82.9 - 93.1 fL 07/04/2024 2:[address] [facility] Mean Cell Hemoglobin 33.8(H) 27.5 - 32.1 pg 07/04/2024 2:[address] [facility] Mean Cell Hemoglobin Concentration 33.3 32.0 - 35.7 g/dL 07/04/2024 2:[address] [facility] Platelet 145 145 - 357 x10(3)/mc L 07/04/2024 2:[address] [facility] Mean Platelet Volume 11.5 7.6 - 12.9 fL 07/04/2024 2:[address] [facility] RDW Standard Deviation 48.2(H) 36.0 - 45.0 fL 07/04/2024 2:[address] [facility] RDW coefficient of variation 13.1 11.4 - 13.8 % 07/04/2024 2:[address] [facility] NRBC% auto 0.0 % 07/04/2024 2:[address] [facility] NRBC Absolute 0.00 0.00 - 0.00 x10(3)/mc L 07/04/2024 2:[address] [facility] Neutrophil % 65.9 % 07/04/2024 2:[address] [facility] Neutrophil Absolute 3.33 1.70 - 6.10 x10(3)/mc L 07/04/2024 2:[address] [facility] Lymph % 20.8 % 07/04/2024 2:[address] [facility] Lymph Absolute 1.05 0.90 - 3.20 x10(3)/mc L 07/04/2024 2:[address] [facility] Monocyte % 9.3 % 07/04/2024 2:[address] [facility] Monocyte Absolute 0.47 0.30 - 0.90 x10(3)/mc L 07/04/2024 2:[address] [facility] Eos % 3.0 % 07/04/2024 2:[address] [facility] Eos Absolute 0.15 0.00 - 0.40 x10(3)/mc L 07/04/2024 2:[address] [facility] Basophil % 0.6 % 07/04/2024 2:[address] [facility] Baso Absolute 0.03 0.00 - 0.10 x10(3)/mc L 07/04/2024 2:[address] [facility] Immature Gran % 0.4 % 2:00 AM EDT [facility] Immature Gran Absolute 0.02 0.00 - 0.04 x10(3)/mc L 07/04/2024 2:00 AM EDT [facility] Blood VENOUS BLOOD SPECIMEN / Unknown IP Care Team Draw / Unknown 07/04/2024 1:43 AM EDT 07/04/2024 1:52 AM EDT Triston Godinez MD HEMATOLOGY ORDERABLE S Performing Organization Address [facility]/ZIP Co de Phone Number [facility] [place] [address] * (ABNORMAL) POC, GLUCOSE (07/03/2024 8:02 PM EDT) Glucometer, POC 251(H) 65 - 199 mg/dL 07/03/2024 8:02 PM EDT [facility] Comment:Supplemental ranges: <140 mg/dL before meals <180 mg/dL all other times of the day. Blood CAPILLARY BLOOD / Unknown 07/03/2024 8:02 PM EDT 07/03/2024 8:02 PM EDT Armond Denny MD POINT OF CARE TEST O CEE Performing Organization Address [facility] Co de Phone Number [facility] [place] [address] * (ABNORMAL) POC, GLUCOSE (07/03/2024 4:47 PM EDT) Glucometer, POC 217(H) 65 - 199 mg/dL 07/03/2024 4:47 PM EDT [facility] Comment:Supplemental ranges: <140 mg/dL before meals <180 mg/dL all other times of the day. Blood CAPILLARY BLOOD / Unknown 07/03/2024 4:47 PM EDT 07/03/2024 4:47 PM EDT Armond Denny MD POINT OF CARE TEST O RDERABLES Performing Organization Address [facility]/ZIP Co de Phone Number [facility] [place] [address] * (ABNORMAL) Urine culture (07/03/2024 3:02 PM EDT) Urine Culture 50,000-99,000 cfu/ml Escherichia coli(A) VITEK 2 METHOD 07/05/2024 8:01 AM EDT [facility] Urine Culture 10,000-49,000 cfu/ml mixed mucosal harika VITEK 2 METHOD 07/05/2024 8:01 AM EDT [facility] Urine URINE SPECIMEN OBTAINED BY [...] - GENER AL ORDERABLES Performing Organization Address City/[facility]/ZIP Co de Phone Number [facility] [place] [address] * (ABNORMAL) Urinalysis Microscopic Reflex to Culture (07/03/2024 3:02 PM EDT) RBC, Urine 2 0 - 3 /HPF 07/03/2024 3:40 PM EDT [facility] WBC, Urine 55(H) 0 - 3 /HPF 07/03/2024 3:40 PM EDT [facility] Squamous Epithelial Cells, Urine 1 0 - 5 /HPF 07/03/2024 3:40 PM EDT [facility] Hyaline Casts, Urine 3(H) 0 - 2 /LPF 07/03/2024 3:40 PM EDT [facility] Comment 07/03/2024 3:40 PM EDT [facility] Comment:Interpret results wi th caution, microscopic results are from a suboptimal specimen. Bacteria, Urine Many(A) None /HPF 3:40 PM EDT [facility] Urine URINE SPECIMEN OBTAINED BY CLEAN CATCH PROCEDURE / Unknown Non Blood Collection / Unknown 07/03/2024 3:02 PM EDT 07/03/2024 3:13 PM EDT Armond Denny MD URINE ORDERABLES Performing Organization Address [facility] de Phone Number [facility] [place] [address] * Urinalysis Microscopic with Reflex to Culture (07/03/2024 3:02 PM EDT) Urine URINE SPECIMEN OBTAINED BY CLEAN CATCH PROCEDURE / Unknown Non Blood Collection / Unknown 07/03/2024 3:02 PM EDT 07/03/2024 3:13 PM EDT Armond Denny MD URINE ORDERABLES Performing Organization Address [facility] Co de Phone Number [facility] [place] [address] * (ABNORMAL) Urinalysis with reflex Culture (07/03/2024 3:02 PM EDT) Glucose, Urine Dipstick Negative Negative 07/03/2024 3:40 PM EDT [facility] Protein, Urine Dipstick 30 mg/dL(A) Negative 07/03/2024 3:40 PM EDT [facility] Bilirubin, Urine Dipstick Small(A) Negative 07/03/2024 3:40 PM EDT [facility] Comment:Clinical correlation required for positive Urine Bilirubin results as false positive may occur with some drugs and drug related products. If a false positive is suspected a serum total bilirubin should be considered if clinically indicated. Urobilinogen, Urine Dipstick Normal Normal, 0.2 mg/dL, 1.0 mg/dL 07/03/2024 3:40 PM EDT [facility] pH, Urine (dipstick) 5.5 5.0 - 8.0 07/03/2024 3:40 PM EDT [facility] Blood, Urine Dipstick Negative Negative 07/03/2024 3:40 PM EDT [facility] Ketone, Urine Dipstick Trace(A) Negative 07/03/2024 3:40 PM EDT [facility] Nitrite, Urine Dipstick Positive(A) Negative 07/03/2024 3:40 PM EDT [facility] Leukocytes, Urine Dipstick Moderate(A) Negative 07/03/2024 3:40 PM EDT [facility] Specific [place] Urine Automated 1.024 1.005 - 1.030 07/03/2024 3:[address] [facility] Appearance, Urine Dipstick Cloudy(A) Clear 07/03/2024 3:40 PM EDT [facility] Color, Urine Dipstick Dark Yellow Yellow, Dark Yellow 07/03/2024 3:40 PM EDT [facility] Urine URINE SPECIMEN OBTAINED BY CLEAN CATCH PROCEDURE / Unknown Non Blood Collection / Unknown 07/03/2024 3:02 PM EDT 07/03/2024 3:13 PM EDT Armond Denny MD URINE ORDERABLES [facility] [place] [address] * POC, GLUCOSE (07/03/2024 11:21 AM EDT) Glucometer, POC 177 65 - 199 mg/dL 07/03/2024 11:21 AM EDT [facility] Comment:Supplemental ranges: <140 mg/dL before meals <180 mg/dL all other times of the day. Blood CAPILLARY BLOOD / Unknown 07/03/2024 11:21 AM EDT 07/03/2024 11:21 AM EDT Armond Denny MD POINT OF CARE TEST O CEE Performing Organization Address City/[facility]/ZIP Co de Phone Number [facility] [place] [address] * POC, GLUCOSE (07/03/2024 7:24 AM EDT) Glucometer, POC 124 65 - 199 mg/dL 07/03/2024 7:24 AM EDT [facility] Comment:Supplemental ranges: <140 mg/dL before meals <180 mg/dL all other times of the day. Blood CAPILLARY BLOOD / Unknown 07/03/2024 7:24 AM EDT 07/03/2024 7:24 AM EDT Armond Denny MD POINT OF CARE TEST O CEE [facility] [place] [address] * Magnesium (07/03/2024 4:02 AM EDT) Magnesium 0.86 0.69 - 1.07 mMol/L 07/03/2024 4:41 AM EDT [facility] Blood VENOUS BLOOD SPECIMEN / Unknown IP Care Team Draw / Unknown 07/03/2024 4:02 AM EDT 07/03/2024 4:07 AM EDT Triston Godinez MD CHEMISTRY ORDERABLES [facility] [place] [address] * Basic Metabolic Panel (07/03/2024 4:02 AM EDT) Glucose 146 65 - 199 mg/dL 07/03/2024 4:[address] [facility] Comment:Glucose Concentratio n >=200 mg/dL plus symptoms is consistent with Diabetes Mellitus. Blood Urea Nitrogen 15 10 - 20 mg/dL 07/03/2024 4:41 AM EDT [facility] Creatinine 1.25 0.80 - 1.50 mg/dL 07/03/2024 4:[address] [facility] Sodium 138 135 - 145 mMol/L 07/03/2024 4:[address] [facility] Potassium 3.6 3.5 - 5.0 mMol/L 07/03/2024 4:[address] [facility] Chloride 105 98 - 107 mMol/L 07/03/2024 4:[address] [facility] Carbon Dioxide 22 22 - 31 mMol/L 07/03/2024 4:[address] [facility] Anion Gap 11 5 - 15 mMol/L 07/03/2024 4:[address] [facility] Calcium 9.2 8.5 - 10.5 mg/dL 07/03/2024 4:[address] [facility] Est Glomerular Filtration Rate - Male 60 mL/min/1. 73 m?? 07/03/2024 4:[address] [facility] Comment: This patient's estimated GFR [...] AM EDT Triston Godinez MD CHEMISTRY ORDERABLES [facility] [place] [address] * (ABNORMAL) CBC (with Diff) (07/03/2024 4:02 AM EDT) White Blood Cell 5.90 4.00 - 9.50 x10(3)/mc L 07/03/2024 4:13 AM EDT [facility] Red Blood Cell 3.27(L) 4.58 - 5.54 x10(6)/mc L 07/03/2024 4:13 AM EDT [facility] Hemoglobin 11.0(L) 13.7 - 16.5 g/dL 07/03/2024 4:[address] [facility] Hematocrit 33.1(L) 40.5 - 48.5 % 07/03/2024 4:13 AM EDT [facility] Mean Cell Volume 101.2(H) 82.9 - 93.1 fL 07/03/2024 4:13 AM EDT [facility] Mean Cell Hemoglobin 33.6(H) 27.5 - 32.1 pg 07/03/2024 4:[address] [facility] Mean Cell Hemoglobin Concentration 33.2 32.0 - 35.7 g/dL 07/03/2024 4:13 AM EDT [facility] Platelet 156 145 - 357 x10(3)/mc L 07/03[facility]2024 [facility] Mean Platelet Volume 11.3 7.6 - 12.9 fL 07/03/2024 4:13 AM EDT [facility] RDW Standard Deviation 47.5(H) 36.0 - 45.0 fL 07/03/2024 4:[address] [facility] RDW coefficient of variation 12.7 11.4 - 13.8 % 07/03/2024 4:[address] [facility] NRBC% auto 0.0 % 07/03/2024 4:[address] [facility] NRBC Absolute 0.00 0.00 - 0.00 x10(3)/mc L 07/03/2024 4:[address] [facility] Neutrophil % 70.0 % 07/03/2024 4:[address] [facility] Neutrophil Absolute 4.13 1.70 - 6.10 x10(3)/mc L 07/03/2024 4:[address] [facility] Lymph % 18.3 % 07/03/2024 4:[address] [facility] Lymph Absolute 1.08 0.90 - 3.20 x10(3)/mc L 07/03/2024 4:[address] [facility] Monocyte % 8.5 % 07/03/2024 4:[address] [facility] Monocyte Absolute 0.50 0.30 - 0.90 x10(3)/mc L 07/03/2024 4:[address] [facility] Eos % 2.4 % 07/03/2024 4:[address] [facility] Eos Absolute 0.14 0.00 - 0.40 x10(3)/mc L 07/03/2024 4:[address] [facility] Basophil % 0.5 % 07/03/2024 4:[address] [facility] Baso Absolute 0.03 0.00 - 0.10 x10(3)/mc L 07/03/2024 4:[address] [facility] Immature Gran % 0.3 % 4:[address] [facility] Immature Gran Absolute 0.02 0.00 - 0.04 x10(3)/mc L 07/03/2024 4:13 AM EDT [facility] Blood VENOUS BLOOD SPECIMEN / Unknown IP Care Team Draw / Unknown 07/03/2024 4:02 AM EDT 07/03/2024 4:07 AM EDT Triston Godinez MD HEMATOLOGY ORDERABLE S Performing Organization Address [facility] Co de Phone Number [facility] [place] [address] * (ABNORMAL) POC, GLUCOSE (07/02/2024 8:45 PM EDT) Glucometer, POC 271(H) 65 - 199 mg/dL 07/02/2024 8:46 PM EDT [facility] Comment:Supplemental ranges: <140 mg/dL before meals <180 mg/dL all other times of the day. Blood CAPILLARY BLOOD / Unknown 07/02/2024 8:45 PM EDT 07/02/2024 8:46 PM EDT Armond Denny MD POINT OF CARE TEST O CEE Performing Organization Address [facility] de Phone Number [facility] [place] [address] * (ABNORMAL) POC, GLUCOSE (07/02/2024 4:18 PM EDT) Glucometer, POC 213(H) 65 - 199 mg/dL 07/02/2024 4:19 PM EDT [facility] Comment:Supplemental ranges: <140 mg/dL before meals <180 mg/dL all other times of the day. Blood CAPILLARY BLOOD / Unknown 07/02/2024 4:18 PM EDT 07/02/2024 4:19 PM EDT Armond Denny MD POINT OF CARE TEST O CEE Performing Organization Address [facility] Co de Phone Number [facility] [place] [address] * (ABNORMAL) POC, GLUCOSE (07/02/2024 11:21 AM EDT) Glucometer, POC 234(H) 65 - 199 mg/dL 07/02/2024 11:21 AM EDT [facility] Comment:Supplemental ranges: <140 mg/dL before meals <180 mg/dL all other times of the day. Blood CAPILLARY BLOOD / Unknown 07/02/2024 11:21 AM EDT 07/02/2024 11:21 AM EDT Armond Denny MD POINT OF CARE TEST O CEE Performing Organization Address City/[facility]/ZIP Co de Phone Number [facility] [place] [address] * POC, GLUCOSE (07/02/2024 7:28 AM EDT) Glucometer, POC 171 65 - 199 mg/dL 07/02/2024 7:28 AM EDT [facility] Comment:Supplemental ranges: <140 mg/dL before meals <180 mg/dL all other times of the day. Blood CAPILLARY BLOOD / Unknown 07/02/2024 7:28 AM EDT 07/02/2024 7:28 AM EDT Armond Denny MD POINT OF CARE TEST O CEE [facility] [place] [address] * Magnesium (07/02/2024 7:12 AM EDT) Magnesium 0.89 0.69 - 1.07 mMol/L 07/02/2024 8:09 AM EDT [facility] Blood VENOUS BLOOD SPECIMEN / Unknown IP Care Team Draw / Unknown 07/02/2024 7:12 AM EDT 07/02/2024 7:19 AM EDT Triston Godinez MD CHEMISTRY ORDERABLES [facility] [place] [address] * Basic Metabolic Panel (07/02/2024 7:12 AM EDT) Glucose 161 65 - 199 mg/dL [facility]2024 [facility] Comment:Glucose Concentratio n >=200 mg/dL plus symptoms is consistent with Diabetes Mellitus. Blood Urea Nitrogen 13 10 - 20 mg/dL 07/02/2024 8:[address] [facility] Creatinine 1.18 0.80 - 1.50 mg/dL 07/02/2024 8:[address] [facility] Sodium 136 135 - 145 mMol/L 07/02/2024 8:[address] [facility] Potassium 3.6 3.5 - 5.0 mMol/L 07/02/2024 8:[address] [facility] Chloride 104 98 - 107 mMol/L 07/02/2024 8:[address] [facility] Carbon Dioxide 24 22 - 31 mMol/L 07/02/2024 8:[address] [facility] Anion Gap 8 5 - 15 mMol/L 07/02/2024 8:[address] [facility] Calcium 8.8 8.5 - 10.5 mg/dL 07/02/2024 8:[address] [facility] Est Glomerular Filtration Rate - Male 64 mL/min/1. 73 m?? 07/02/2024 8:[address] [facility] Comment: This patient's estimated GFR [...] AM EDT Triston Godinez MD CHEMISTRY ORDERABLES [facility] [place] [address] * (ABNORMAL) CBC (with Diff) (07/02/2024 7:12 AM EDT) White Blood Cell 5.99 4.00 - 9.50 x10(3)/mc L 07/02/2024 7[facility] Red Blood Cell 3.36(L) 4.58 - 5.54 x10(6)/mc L 07/02/2024 7:41 AM EDT [facility] Hemoglobin 11.3(L) 13.7 - 16.5 g/dL 07/02/2024 7:[address] [facility] Hematocrit 34.3(L) 40.5 - 48.5 % 07/02/2024 7:[address] [facility] Mean Cell Volume 102.1(H) 82.9 - 93.1 fL 07/02/2024 7:[address] [facility] Mean Cell Hemoglobin 33.6(H) 27.5 - 32.1 pg 07/02/2024 7:[address] [facility] Mean Cell Hemoglobin Concentration 32.9 32.0 - 35.7 g/dL 07/02/2024 7:[address] [facility] Platelet 155 145 - 357 x10(3)/mc L 07/02/2024 7:[address] [facility] Mean Platelet Volume 11.3 7.6 - 12.9 fL 07/02/2024 7:[address] [facility] RDW Standard Deviation 48.2(H) 36.0 - 45.0 fL 07/02/2024 7:[address] [facility] RDW coefficient of variation 12.9 11.4 - 13.8 % 07/02/2024 7:[address] [facility] NRBC% auto 0.0 % 07/02/2024 7:[address] [facility] NRBC Absolute 0.00 0.00 - 0.00 x10(3)/mc L 07/02/2024 7:[address] [facility] Neutrophil % 75.2 % 07/02/2024 7:[address] [facility] Neutrophil Absolute 4.50 1.70 - 6.10 x10(3)/mc L 07/02/2024 7:[address] [facility] Lymph % 14.0 % 07/02/2024 7:[address] [facility] Lymph Absolute 0.84(L) 0.90 - 3.20 x10(3)/mc L 07/02/2024 7:[address] [facility] Monocyte % 8.7 % 07/02/2024 7:[address] [facility] Monocyte Absolute 0.52 0.30 - 0.90 x10(3)/mc L 07/02/2024 7:[address] [facility] Eos % 1.3 % 07/02/2024 7:[address] [facility] Eos Absolute 0.08 0.00 - 0.40 x10(3)/mc L 07/02/2024 7:[address] [facility] Basophil % 0.5 % 07/02/2024 7:[address] [facility] Baso Absolute 0.03 0.00 - 0.10 x10(3)/mc L 07/02/2024 7:[address] [facility] Immature Gran % 0.3 % 7:[address] [facility] Immature Gran Absolute 0.02 0.00 - 0.04 x10(3)/mc L 07/02/2024 7:41 AM EDT [facility] Blood VENOUS BLOOD SPECIMEN / Unknown IP Care Team Draw / Unknown 07/02/2024 7:12 AM EDT 07/02/2024 7:19 AM EDT Triston Godinez MD HEMATOLOGY ORDERABLE S [facility] [place] [address] * CT Abdomen & Pelvis w Contrast (07/02/2024 3:13 AM EDT) WORKSTATION ID [id number] RAD Anatomical Region Laterality Modality Abdomen, Pelvis [...] services that requested your imaging first. ? Electronically signed by: Gutierrez Hamilton MD, [facility] ([phone]), at 07/02/2024 9:20 AM Narrative 07/02/2024 9:20 [...] patients who have questions please contactthe health associate director career services that requested your imaging first. Electronically signed by: Gutierrez Hamilton MD, [facility]([phone]), at 07/02/2024 9:20 AM Triston Godinez MD IMG CT ORDERABLES * POC, GLUCOSE (07/01/2024 7:58 PM EDT) Glucometer, POC 84 65 - 199 mg/dL 07/01/2024 7:59 PM EDT [facility] Comment:Supplemental ranges: <140 mg/dL before meals <180 mg/dL all other times of the day. Blood CAPILLARY BLOOD / Unknown 07/01/2024 7:58 PM EDT 07/01/2024 7:59 PM EDT Armond Denny MD POINT OF CARE TEST O RDERABLES Performing Organization Address [facility] Co de Phone Number [facility] [place] [address] * POC, GLUCOSE (07/01/2024 6:41 PM EDT) Glucometer, POC 91 65 - 199 mg/dL 07/01/2024 6:41 PM EDT [facility] Comment:Supplemental ranges: <140 mg/dL before meals <180 mg/dL all other times of the day. Blood CAPILLARY BLOOD / Unknown 07/01/2024 6:41 PM EDT 07/01/2024 6:41 PM EDT Armond Denny MD POINT OF CARE TEST O RDMELISSA Performing Organization Address [facility] Co de Phone Number [facility] [place] [address] * EKG 12 Lead (07/01/2024 5:24 PM EDT) Ventricular rate 77 BPM MUSE SYSTEM Atrial Rate 77 BPM MUSE SYSTEM P-R Interval 178 ms MUSE SYSTEM QRS Duration 138 ms MUSE SYSTEM Q-T Interval 418 ms MUSE SYSTEM QTC Calculated (Bezet) 473 ms MUSE SYSTEM Calculated P [place] 63 degrees MUSE SYSTEM Calculated R [place] 87 degrees MUSE SYSTEM Calculated T [place] 8 degrees MUSE SYSTEM INTERPRETATION Normal sinus [...] Narrative 07/01/2024 7:47 PM EDT ?[facility] ? Cardiac Catheterization/Intervention Report ? Patient Name: Brian Rodriguez. ? Procedure Date: 07/01/2024 ? A #: [id number] ? Primary Physician: Mogadam, Emad ? Case #: [id number] ? File Name: [id number] ? Catheterization Order Number: [id number] ? [facility] ? Final Report [place], [place] ? Patient Name: ? Brian M. Rodriguez ?ID#: ?[id number] ? : ?[id number] ? Procedure Date: ? July 01, 2024 ? Case #: ? [id number] ? Room: ? 5 ? Case Physician: [...] procedure was Urgent. The indication for ?the labeling strategist visit is ACS less than or equal [...] A premounted 2.75 x 22 mm Rodo [place] (EILEEN) was deployed ? with a maximum [...] dose administered prior to arrival in the labeling strategist. ?Recommended anti-platelet/anti-thrombotic regimen: ?Continue aspirin 81 mg daily. ?Continue clopidogrel 75 mg daily. ?These recommendations are made at the time of the intervention. Patient ?and provider preferences or a changing clinical situation may require ?modification of this regimen. Consult [facility] Interventional Cardiology for ?questions. [...] against any medical treatment. Consult ?http://tools.acc.org/DAPTriskapp/#!/content/calculator/ or [facility] ?Interventional Cardiology for questions [...] Lizzette Hayden MD - 07/14/2024 [facility] Cardiac Catheterization/Intervention Report Patient Name: Brian Rodriguez Procedure Date: 07/01/2024 A #: [id number] Primary Physician: Lizzette Hayden Case #: [id number] File Name: [id number] Catheterization Order Number: [id number] [facility] FinalReport [place], [place] Patient Name: Brian Rodriguez ID#:[id number] :[id number] Procedure Date: July 01, 2024 Case [...] patient was designated as ASA Class III. [facility] clinical frailty scale is 4: Vulnerable. Diagnostic Tests: Medications Prior to Procedure: Aspirin, Angiotensin II Receptor Leo and Statin. Indications for Diagnostic Cath: The priority of the diagnostic procedure was Urgent. The indicationfor the labeling strategist visit is ACS less than or equal [...] time was 37.0 minutes, dose area product oit836.00 Gy/cm2 and air kerma was 1,874 mGY. [...] The lesion was predilated with a 2.50mm [id number] MM balloon with a maximum inflation pressure of 14atmospheres. A premounted 2.75 x 22 mm [place] (EILEEN) wasdeployed with a maximum inflation pressure [...] dose administered prior to arrival in the labeling strategist. Recommended anti-platelet/anti-thrombotic regimen: Continue aspirin 81 mg daily. Continue clopidogrel 75 mg daily. These recommendations are made at the time of the intervention.Patient and provider preferences or a changing clinical situation mayrequire modification of this regimen. Consult [facility] Interventional Cardiologyfor questions. This [...] or against any medical treatment.Consult http://tools.acc.org/DAPTriskapp/#!/content/calculator/ or [facility] Interventional Cardiology for questions [...] - 199 mg/dL 07/01/2024 11:35 AM EDT [facility] Comment:Supplemental ranges: <140 mg/dL before meals <180 mg/dL all other times of the day. Blood CAPILLARY BLOOD / Unknown 07/01/2024 11:35 AM EDT 07/01/2024 11:35 AM EDT Armond Denny MD POINT OF CARE TEST O RDERABLES [facility] [place] [address] * (ABNORMAL) Hemogram (07/01/2024 10:32 AM EDT) White Blood Cell 7.02 4.00 - 9.50 x10(3)/mc L 07/01/2024 11:[address] [facility] Red Blood Cell 3.68(L) 4.58 - 5.54 x10(6)/mc L 07/01/2024 11:20 AM [facility] Hemoglobin 12.2(L) 13.7 - 16.5 g/dL 07/01/2024 11:[address] [facility] Hematocrit 36.5(L) 40.5 - 48.5 % 07/01/2024 11:[address] [facility] Mean Cell Volume 99.2(H) 82.9 - 93.1 fL 07/01/2024 11:[address] [facility] Mean Cell Hemoglobin 33.2(H) 27.5 - 32.1 pg 07/01/2024 11:[address] [facility] Mean Cell Hemoglobin Concentration 33.4 32.0 - 35.7 g/dL 07/01/2024 11:[address] [facility] Platelet 167 145 - 357 x10(3)/mc L 07/01/2024 11:[address] [facility] Mean Platelet Volume 11.4 7.6 - 12.9 fL 07/01/2024 11:[address] [facility] RDW Standard Deviation 46.5(H) 36.0 - 45.0 fL 07/01/2024 11:[address] [facility] RDW coefficient of variation 12.9 11.4 - 13.8 % 07/01/2024 11:[address] [facility] NRBC% auto 0.0 % 07/01/2024 11:[address] [facility] NRBC Absolute 0.00 0.00 - 0.00 x10(3)/mc L 07/01/2024 11:[address] [facility] Blood VENOUS BLOOD SPECIMEN / Unknown IP Care Team Draw / Unknown 07/01/2024 10:32 AM EDT 07/01/2024 10:54 AM EDT Armond Denny MD HEMATOLOGY ORDERABLE S Performing Organization Address [facility] Co de Phone Number [facility] [place] [address] * Heparin (unfractionated) Level (07/01/2024 10:32 AM EDT) UF Heparin 0.31 IU/mL 07/01/2024 11:25 AM EDT [facility] Comment: Heparin (anti-Xa) levels should [...] City/[facility]/ZIP Co de Phone Number [facility] [place] [address] * POC, GLUCOSE (07/01/2024 7:18 AM EDT) Glucometer, POC 105 65 - 199 mg/dL 07/01/2024 7:19 AM EDT [facility] Comment:Supplemental ranges: <140 mg/dL before meals <180 mg/dL all other times of the day. Blood CAPILLARY BLOOD / Unknown 07/01/2024 7:18 AM EDT 07/01/2024 7:19 AM EDT Triston Godinez MD POINT OF CARE TEST O RDERABLES Performing Organization Address [facility]/ZIP Co de Phone Number [facility] [place] [address] * Heparin (unfractionated) Level (07/01/2024 3:15 AM EDT) UF Heparin 0.36 IU/mL 07/01/2024 4:23 AM EDT [facility] Comment: Heparin (anti-Xa) levels should [...] City/[facility]/ZIP Co de Phone Number [facility] [place] [address] * (ABNORMAL) CBC (with Diff) (07/01/2024 3:15 AM EDT) White Blood Cell 5.82 4.00 - 9.50 x10(3)/mc L 07/01/2024 3:[address] [facility] Red Blood Cell 3.60(L) 4.58 - 5.54 x10(6)/mc L 07/01/2024 3:[address] [facility] Hemoglobin 11.9(L) 13.7 - 16.5 g/dL 07/01/2024 3:[address] [facility] Hematocrit 35.6(L) 40.5 - 48.5 % 07/01/2024 3:[address] [facility] Mean Cell Volume 98.9(H) 82.9 - 93.1 fL 07/01/2024 3:[address] [facility] Mean Cell Hemoglobin 33.1(H) 27.5 - 32.1 pg 07/01/2024 3:[address] [facility] Mean Cell Hemoglobin Concentration 33.4 32.0 - 35.7 g/dL 07/01/2024 3:[address] [facility] Platelet 169 145 - 357 x10(3)/mc L 07/01/2024 3:[address] [facility] Mean Platelet Volume 11.6 7.6 - 12.9 fL 07/01/2024 3:[address] [facility] RDW Standard Deviation 46.3(H) 36.0 - 45.0 fL 07/01/2024 3:[address] [facility] RDW coefficient of variation 12.8 11.4 - 13.8 % 07/01/2024 3:[address] [facility] NRBC% auto 0.0 % 07/01/2024 3:[address] [facility] NRBC Absolute 0.00 0.00 - 0.00 x10(3)/mc L 07/01/2024 3:[address] [facility] Neutrophil % 66.6 % 07/01/2024 3:[address] [facility] Neutrophil Absolute 3.87 1.70 - 6.10 x10(3)/mc L 07/01/2024 3:54 AM EDT [facility] Lymph % 20.4 % 07/01/2024 3:54 AM EDT [facility] Lymph Absolute 1.19 0.90 - 3.20 x10(3)/mc L 07/01/2024 3:54 AM EDT [facility] Monocyte % 9.6 % 07/01/2024 3:54 AM EDT [facility] Monocyte Absolute 0.56 0.30 - 0.90 x10(3)/mc L 07/01/2024 3:54 AM EDT [facility] Eos % 2.6 % 07/01/2024 3:54 AM EDT [facility] Eos Absolute 0.15 0.00 - 0.40 x10(3)/mc L 07/01/2024 3:54 AM EDT [facility] Basophil % 0.5 % 07/01/2024 3:54 AM EDT [facility] Baso Absolute 0.03 0.00 - 0.10 x10(3)/mc L 07/01/2024 3:54 AM EDT [facility] Immature Gran % 0.3 % 3:54 AM EDT [facility] Immature Gran Absolute 0.02 0.00 - 0.04 x10(3)/mc L 07/01/2024 3:54 AM EDT [facility] Blood VENOUS BLOOD SPECIMEN / Unknown IP Care Team Draw / Unknown 07/01/2024 3:15 AM EDT 07/01/2024 3:37 AM EDT Triston Godinez MD HEMATOLOGY ORDERABLE S [facility] [place] [address] * Magnesium (06/30/2024 11:25 PM EDT) Magnesium 0.84 0.69 - 1.07 mMol/L 07/01/2024 12:[address] [facility] Blood VENOUS BLOOD SPECIMEN / Unknown IP Care Team Draw / Unknown 06/30/2024 11:25 PM EDT 06/30/2024 11:47 PM EDT Triston Godinez MD CHEMISTRY ORDERABLES [facility] [place] [address] * (ABNORMAL) Basic Metabolic Panel (06/30/2024 11:25 PM EDT) Glucose 145 65 - 199 mg/dL 07/01/2024 12:[address] [facility] Comment:Glucose Concentratio n >=200 mg/dL plus symptoms is consistent with Diabetes Mellitus. Blood Urea Nitrogen 10 10 - 20 mg/dL 07/01/2024 12:[address] [facility] Creatinine 1.02 0.80 - 1.50 mg/dL 07/01/2024 12:[address] [facility] Sodium 141 135 - 145 mMol/L 07/01/2024 12:[address] [facility] Potassium 3.4(L) 3.5 - 5.0 mMol/L 07/01/2024 12:[address] [facility] Chloride 106 98 - 107 mMol/L 07/01/2024 12:[address] [facility] Carbon Dioxide 25 22 - 31 mMol/L 07/01/2024 12:[address] [facility] Anion Gap 10 5 - 15 mMol/L 07/01/2024 12:[address] [facility] Calcium 9.2 8.5 - 10.5 mg/dL 07/01/2024 12:[address] [facility] Est Glomerular Filtration Rate - Male 76 mL/min/1. 73 m?? 07/01/2024 12:[address] [facility] Comment: This patient's estimated GFR [...] Foundation Fasting Status 07/01/2024 12:14 AM EDT [facility] Blood VENOUS BLOOD SPECIMEN / Unknown IP Care Team Draw / Unknown 06/30/2024 11:25 PM EDT 06/30/2024 11:47 PM EDT Triston Godinez MD CHEMISTRY ORDERABLES [facility] [place] [address] * (ABNORMAL) Troponin-T, Yuriy Sensitivity 3 Hour (06/30/2024 11:25 PM EDT) Troponin-T, High Sensitivity 1,274(H) <=22 ng/L 07/01/2024 12:14 AM EDT [facility] Comment: This patient's troponin T [...] [facility] Test Catalog Troponin - https://one-.testcatalog.org/catalogs/565/files/79653 Reference: Fourth [place] Definition of Myocardial Infarction. Journal of the [place] [employer] 2018;72:6969-6554 Troponin-T, HS 3 hr delta 65 ng/L 07/01/2024 12:14 AM EDT [facility] Comment:The 3 hour Troponin T delta value is the absolute difference between the Troponin T concentrations of the initial and subsequent sample collected between 2 h: 45 min and 6 h following the initial collection Blood VENOUS BLOOD SPECIMEN / Unknown IP Care Team Draw / Unknown 06/30/2024 11:25 PM EDT 06/30/2024 11:47 PM EDT Triston Godinez MD CHEMISTRY ORDERABLES [facility] [place] [address] * (ABNORMAL) Troponin-T, High Sensitivity 1 Hour (06/30/2024 8:22 PM EDT) Troponin-T, High Sensitivity 1,234(H) <=22 ng/L 06/30/2024 9:22 PM EDT [facility] Comment: This patient's troponin T [...] troponin value can be found in the [facility] Laboratory Test Catalog Troponin - https://[email or web address]/catalogs/565/files/04174 Reference: Fourth [place] Definition of Myocardial Infarction. Journal of the [place] [employer] 2018;72:1073-7466 Troponin-T, HS 1 hr delta 06/30/2024 9:22 PM EDT [facility] Comment:Delta troponin value not calculated, sample collected outside of delta calculation time limit. Blood VENOUS BLOOD SPECIMEN / Unknown Venipuncture / Unknown 06/30/2024 8:22 PM EDT 06/30/2024 8:40 PM EDT Triston Godinez MD CHEMISTRY ORDERABLES Performing Organization Address [facility]/ZIP Co de Phone Number [facility] [place] [address] * POC, GLUCOSE (06/30/2024 7:56 PM EDT) Glucometer, POC 144 65 - 199 mg/dL 06/30/2024 7:57 PM EDT [facility] Comment:Supplemental ranges: <140 mg/dL before meals <180 mg/dL all other times of the day. Blood CAPILLARY BLOOD / Unknown 06/30/2024 7:56 PM EDT 06/30/2024 7:57 PM EDT Triston Godinez MD POINT OF CARE TEST O RDERABLES Performing Organization Address City/[facility]/ZIP Co de Phone Number [facility] [place] [address] * XR Abdomen Flat & Upright (06/30/2024 6:56 PM EDT) WORKSTATION ID [id number] RAD Anatomical Region Laterality Modality Abdomen N/A [...] services that requested your imaging first. ? Electronically signed by: Shireen Hurtado MD, [facility] ([phone]), at 06/30/2024 9:12 PM Narrative 06/30/2024 9:12 [...] patients who have questions please contactthe health associate director career services that requested your imaging first. Electronically signed by: Shireen Hurtado MD, [facility]([phone]), at 06/30/2024 9:12 PM Triston Godinez MD IMG DX ORDERABLES * (ABNORMAL) Troponin-T, High Sensitivity (06/30/2024 6:09 PM EDT) Troponin-T, High Sensitivity Initial 1,209(HHH ) <=22 ng/L 06/30/2024 7:23 PM EDT [facility] Comment: This patient's troponin T [...] troponin value can be found in the [facility] Laboratory Test Catalog Troponin - https://[email or web address].org/catalogs/565/files/52021 Reference: Fourth [place] Definition of Myocardial Infarction. Journal of the [place] [employer] 2018;72:9632-0410 Blood VENOUS BLOOD SPECIMEN / Unknown Venipuncture / Unknown 06/30/2024 6:09 PM EDT 06/30/2024 6:18 PM EDT Triston Godinez MD CHEMISTRY ORDERABLES [facility] [place] [address] * (ABNORMAL) Basic Metabolic Panel (06/30/2024 6:09 PM EDT) Glucose 06/30/2024 8:[address] [facility] Comment:Insufficient sample. Informed Alli Meyers at 20:07, 06.30.2024. Blood Urea Nitrogen 10 10 - 20 mg/dL 06/30/2024 8:[address] [facility] Creatinine 0.98 0.80 - 1.50 mg/dL 06/30/2024 8:[address] [facility] Sodium 140 135 - 145 mMol/L 06/30/2024 8:[address] [facility] Potassium 4.2 3.5 - 5.0 mMol/L 06/30/2024 8:[address] [facility] Chloride 105 98 - 107 mMol/L 06/30/2024 8:[address] [facility] Carbon Dioxide 21(L) 22 - 31 mMol/L 06/30/2024 8:[address] [facility] Anion Gap 14 5 - 15 mMol/L 06/30/2024 8:[address] [facility] Calcium 06/30/2024 8:[address] [facility] Comment:Insufficient sample. Informed Alli Meyers at 20:07, 06.30.2024. Est Glomerular Filtration Rate - Male 80 mL/min/1. 73 m?? 06/30/2024 8:[address] [facility] Comment: This patient's estimated GFR [...] Foundation Fasting Status Yes 06/30/2024 8:[address] [facility] Blood VENOUS BLOOD SPECIMEN / Unknown Venipuncture / Unknown 06/30/2024 6:09 PM EDT 06/30/2024 6:18 PM EDT Triston Godinez MD CHEMISTRY ORDERABLES [facility] [place] [address] * Lipid Panel (Reflex Direct LDL) (06/30/2024 6:09 PM EDT) Cholesterol, Total 197 mg/dL 06/30/2024 6:51 PM EDT [facility] Comment: Desirable: < 200 mg/dL Borderline High: 200 - 239 mg/dL High: > or = 240 mg/dL Triglyceride 230 mg/dL 06/30/2024 6:51 PM EDT [facility] Comment: Normal: <150 mg/dL Borderline High: 150-199 mg/dL High: 200-499 mg/dL Very High: > or =500 mg/dL HDL Cholesterol 36 mg/dL 6:51 PM EDT [facility] Comment:Males: High Risk: <4 0 mg/dL LDL Cholesterol 120 mg/dL 6:51 PM EDT [facility] Comment: Desirable: <100 mg/dL Above Desirable: 100-129 mg/dL Borderline High: 130-159 mg/dL High: 160-189 mg/dL Very High: > or =190 mg/dL Note: LDL calculation updated to the NIH LDL formula as of 06/26/2024 Non-HDL Cholesterol 161 mg/dL 06/30/2024 6:51 PM EDT [facility] Comment: Desirable: <130 mg/dL Above Desirable: 130-159 mg/dL Borderline High: 160-189 mg/dL High: 190-219 mg/dL Very High: > or = 220 mg/dL Blood VENOUS BLOOD SPECIMEN / Unknown Venipuncture / Unknown 06/30/2024 6:09 PM EDT 06/30/2024 6:18 PM EDT Narrative [facility] - 06/30/2024 6:51 PM EDT [...] ACC/AHA Guidelines (most recently Brianne et al. [facility] 08/26/22): * For individuals with atherosclerotic [...] Godinez MD CHEMISTRY ORDERABLES Performing Organization Address City/[facility]/ZIP Co de Phone Number [facility] [place] [address] * (ABNORMAL) pro-Brain Natriuretic Peptide (06/30/2024 6:09 PM EDT) NT-proBNP 2,259(H) <=449 pg/mL 06/30/2024 6:51 PM EDT [facility] Blood VENOUS BLOOD SPECIMEN / Unknown Venipuncture / Unknown 06/30/2024 6:09 PM EDT 06/30/2024 6:18 PM EDT Triston Godinez MD CHEMISTRY ORDERABLES Performing Organization Address City/[facility]/ZIP Co de Phone Number [facility] [place] [address] * TSH (06/30/2024 6:09 PM EDT) Pathologist [facility] Thyroid Stimulating Hormone 2.80 0.27 - 4.20 mcIU/mL 06/30/2024 6:51 PM EDT [facility] Blood VENOUS BLOOD SPECIMEN / Unknown Venipuncture / Unknown 06/30/2024 6:09 PM EDT 06/30/2024 6:18 PM EDT Triston Godinez MD CHEMISTRY ORDERABLES Performing Organization Address City/[facility]/ZIP Co de Phone Number [facility] [place] [address] * Heparin (unfractionated) Level (06/30/2024 6:08 PM EDT) Pathologist [facility] UF Heparin 0.07 IU/mL 06/30/2024 6:34 PM EDT [facility] Comment: Heparin (anti-Xa) levels should [...] EDT Triston Godinez MD HEMATOLOGY ORDERABLE S [facility] [place] [address] * (ABNORMAL) CBC (with Diff) (06/30/2024 6:08 PM EDT) White Blood Cell 6.45 4.00 - 9.50 x10(3)/mc L 06/30/2024 6:36 PM EDT [facility] Red Blood Cell 3.78(L) 4.58 - 5.54 x10(6)/mc L 06/30/2024 6:36 PM EDT [facility] Hemoglobin 12.7(L) 13.7 - 16.5 g/dL 06/30/2024 6:36 PM EDT [facility] Hematocrit 38.0(L) 40.5 - 48.5 % 06/30/2024 6:36 PM EDT [facility] Mean Cell Volume 100.5(H) 82.9 - 93.1 fL 06/30/2024 6:36 PM EDT [facility] Mean Cell Hemoglobin 33.6(H) 27.5 - 32.1 pg 06/30/2024 6:36 PM EDT [facility] Mean Cell Hemoglobin Concentration 33.4 32.0 - 35.7 g/dL [facility]/30[facility]24 [facility]let 79(L) 145 - 357 x10(3)/mc L 06/30/2024 6:[address] [facility] Mean Platelet Volume 11.2 7.6 - 12.9 fL 06/30/2024 6:[address] [facility] RDW Standard Deviation 48.4(H) 36.0 - 45.0 fL 06/30/2024 6:[address] [facility] RDW coefficient of variation 13.0 11.4 - 13.8 % 06/30/2024 6:[address] [facility] NRBC% auto 0.0 % 06/30/2024 6:[address] [facility] NRBC Absolute 0.00 0.00 - 0.00 x10(3)/mc L 06/30/2024 6:[address] [facility] Neutrophil % 71.2 % 06/30/2024 6:[address] [facility] Neutrophil Absolute 4.59 1.70 - 6.10 x10(3)/mc L 06/30/2024 6:[address] [facility] Lymph % 18.1 % 06/30/2024 6:[address] [facility] Lymph Absolute 1.17 0.90 - 3.20 x10(3)/mc L 06/30/2024 6[facility] Monocyte % 8.2 % 06/30/2024 6:[address] [facility] Monocyte Absolute 0.53 0.30 - 0.90 x10(3)/mc L 06/30/2024 6:[address] [facility] Eos % 1.7 % 06/30/2024 6:[address] [facility] Eos Absolute 0.11 0.00 - 0.40 x10(3)/mc L 06/30/2024 6[facility] Basophil % 0.6 % 06/30/2024 6:36 PM EDT [facility] Baso Absolute 0.04 0.00 - 0.10 x10(3)/mc L 06/30/2024 6:36 PM EDT [facility] Immature Gran % 0.2 % 6:36 PM EDT [facility] Immature Gran Absolute 0.01 0.00 - 0.04 x10(3)/mc L 06/30/2024 6:36 PM EDT [facility] Blood VENOUS BLOOD SPECIMEN / Unknown Venipuncture / Unknown 06/30/2024 6:08 PM EDT 06/30/2024 6:18 PM EDT Triston Godinez MD HEMATOLOGY ORDERABLE S [facility] [place] [address] * (ABNORMAL) Hemoglobin A1c (06/30/2024 6:08 PM EDT) Hemoglobin A1c 7.3(H) 4.3 - 5.6 % 06/30/2024 9:03 PM EDT [facility] Comment: Per ADA guidelines, without [...] red blood cell turnover may not be direct marketing representative of glycemic control. Reference Interval: 4.3 - 5.6% 5.7 - 6.4%: Consistent with prediabetes >=6.5%: Consistent with diagnosis of diabetes mellitus Estimated Average Glucose 06/30/2024 9:03 PM EDT [facility] Comment:Not Calculated. Blood VENOUS BLOOD SPECIMEN / Unknown Venipuncture / Unknown 06/30/2024 6:08 PM EDT 06/30/2024 6:18 PM EDT Narrative [facility] - 06/30/2024 9:03 PM EDT Estimated average glucose (eAG) is calculated from the equation described in: John ELLISON, Inna J, Nic R, et al. ??Translating the A1C assay into estimated average glucose values. ??Diabetes Care 2008:31(8):8516-6467. Additional resources are available on the ADA website (diabetes.org). Triston Godinez MD CHEMISTRY ORDERABLES Performing Organization Address [facility] Co de Phone Number [facility] [place] [address] * POC, GLUCOSE (06/30/2024 5:58 PM EDT) [facility] Glucometer, POC 148 65 - 199 mg/dL 06/30/2024 5:58 PM EDT [facility] Comment:Supplemental ranges: <140 mg/dL before meals <180 mg/dL all other times of the day. Blood CAPILLARY BLOOD / Unknown 06/30/2024 5:58 PM EDT 06/30/2024 5:58 PM EDT Triston Godinez MD POINT OF CARE TEST O RDERABLES Performing Organization Address [facility] Co de Phone Number [facility] [place] [address] * EKG 12 Lead (06/30/2024 5:23 PM EDT) Ventricular rate 73 BPM MUSE SYSTEM Atrial Rate 300 BPM MUSE SYSTEM QRS Duration 72 ms MUSE SYSTEM Q-T Interval 404 ms MUSE SYSTEM QTC Calculated (Bezet) 445 ms MUSE SYSTEM Calculated P [place] 71 degrees MUSE SYSTEM Calculated R [place] 65 degrees MUSE SYSTEM Calculated T [place] 30 degrees MUSE SYSTEM INTERPRETATION Normal sinus [...] elevation myocardial infarction) Exam Location: [facility]. ? Conclusions -Left ventricular systolic function is moderately reduced. The left ventricular ejection fraction is 36% by Dowd's biplane. The anterolateral and inferolateral bar[place]ona are akinetic. The anterior wall is hypokinetic. -Right ventricle is mildly dilated. Systolic function is normal. -No significant valve disease. -See report for additional findings. No prior study is available. Procedure [id number]. Image enhancement Optison was used for left [...] elevation myocardial infarction) Exam Location: [facility]. Conclusions -Left ventricular systolic function is moderately reduced. The leftventricular ejection fraction is 36% by Dowd's biplane. The anterolateral andinferolateral bar[place]ona are akinetic. The anterior wall is hypokinetic. -Right ventricle is mildly dilated. Systolic function is normal. -No significant valve disease. -See report for additional findings. No prior study is available. Procedure [id number]. Image enhancement Optison was used for left [...] large 15-16 diffuse Electronically signed by: Triston Godniez MD 06/30/2024, 9: 26 PM Triston Godinez MD ECHO ORDERABLES * EKG 12 Lead (06/30/2024 3:53 PM EDT) Ventricular rate 69 BPM MUSE SYSTEM Atrial Rate 69 BPM MUSE SYSTEM P-R Interval 176 ms MUSE SYSTEM QRS Duration 138 ms MUSE SYSTEM Q-T Interval 430 ms MUSE SYSTEM QTC Calculated (Bezet) 460 ms MUSE SYSTEM Calculated P [place] 69 degrees MUSE SYSTEM Calculated R [place] 78 degrees MUSE SYSTEM Calculated T [place] 39 degrees MUSE SYSTEM INTERPRETATION Sinus rhythm [...] 1615, Until Discontinued 0808 (Given - Provider: Sujaat Duncan RN) 0824 (Given - Provider: Jenny [...] - Provider: Iram De Jesus [facility]) tamsulosin (Flomax) capsule 0.8 mg 0.8 mg, [...] Routine documented in this encounter Care Teams Technical Designer Relationship Specialty Start Date End Date Deacon Watters APRN [address] [place] [address] [address] [place] [address] PCP - General Family Medicine 02/17/22 documented as of this encounter
--- OUTSIDE RECORDS SUMMARY | 2024-07-22 13:05 | XMS_ITS | Encounter Summary ---
Author Organization [facility] Address [facility] [place] [address] Care Team Providers Care Test Clerk Name Role Phone DuongVeliakip Wells APRN Primary Care Provider [phone] Encounter Details Date Type Department Care Team (Late st Contact Info) Description 03/02/2024 2:45 PM EDT Office Visit Dermatology at [facility] [address] [place] [address] Matti Bland MD [facility] [address] [place] [address] Visit for suture removal Social History Tobacco [...] 2. Follow up with referring provider or sales and marketing intern for skin exams. 3. Follow up with Dr. Keller: as needed Note initiated and signed by Inge Forte LPN documented in this encounter Plan of Treatment Upcoming Encounters Date Type Department Care Team (Late st Contact Info) Description 08/15/2024 9:00 AM EDT Office [place] [phone] Dion Barlow MD [facility] [place] [address] 09/01/2024 9:40 AM EDT Office Visit Cardiology at [address] [phone] Franky Shaver MD [facility] [place] [address] 09/01/2024 11:20 AM EDT Office Visit Dermatology at [facility] [address] [place] [phone] Gómez Mercer MD [facility] DR [place] [address] 09/21/2024 2:45 PM EDT Office Visit [facility] [place] [phone] Trung Hoyos MD [facility] [address] documented as of this encounter Visit Diagnoses Diagnosis Visit for suture removal Encounter for removal of sutures documented in this encounter Care Teams Test Clerk Relationship Specialty Start Date End Date Deacon Watters, JAZMINE [address] [place] [address] PCP - General Family Medicine 02/17/22 documented as of this encounter
--- OUTSIDE RECORDS SUMMARY | 2024-07-22 13:05 | XMS_ITS | Encounter Summary ---
Author Organization [facility] [place] [address] Care Team Providers Care Spanish Tutor Name Role Phone Deacon Watters APRN Primary Care Provider +1- [phone] Reason for Referral * Consultation (Routine) - Closed Specialty Diagnoses / Procedures Referred By Contac t Referred To Contact Pain and Spine Center Diagnoses Spondylosis of cervical region without myelopathy or radiculopathy Santiago Morales PA [facility] [place] [address] [facility] [place] [address] Referral ID Status Reason Start Date Expiration Date V isits Requested Visits Authorized [id number] Closed Pain Consult 04/06/2024 04/06/2025 1 1 Reason for Visit * Reason Comments Follow-up Pain Back of neck- right side of neck is worse Encounter Details Date Type Department Care Team (Latest Contact Info) Description 04/06/2024 8:30 AM EDT Office Visit [place] [phone] Santiago Morales PA [facility] [place] [address] Spondylosis of cervical region without [...] for Pain and Spine @ [facility] for evaluation. Chief Complaint: Neck pain. Intermittent [...] strength though with slight weakness with left cleaner and preparer compared to thatof the right. Imaging: No [...] 9:00 AM EDT Office [place] [address] Dion Barlow MD [facility] [place] [address] 09/01/2024 9:40 AM EDT Office Visit Cardiology at [address] [phone] Franky Shaver MD [facility] [place] [address] 09/01/2024 11:20 AM EDT Office Visit Dermatology at [facility] [address] [place] [phone] Gómez Mercer MD [facility] DR ED[place] [address] 09/21/2024 2:45 PM EDT Office Visit [place] [address] Trung Hoyos MD [facility] [place] [address] Scheduled Referrals Name Type Priority Associated Diagnoses Orde r Schedule Referral to Pain and Spine Center (Internal only) Outpatient Referral Routine Spondylosis of cervical region without myelopathy or radiculopathy Ordered: 04/06/2024 documented as of this encounter Visit Diagnoses Diagnosis Spondylosis of cervical region without myelopathy or radiculopathy Cervical spondylosis without myelopathy documented in this encounter Care Teams Spanish Tutor Relationship Specialty Start Date End Date Deacon Watters, MARKET RESEARCH ASSISTANT [address] [place] [address] PCP - General Family Medicine 02/17/22 documented as of this encounter
--- OUTSIDE RECORDS SUMMARY | 2024-07-22 13:06 | XMS_ITS | Encounter Summary ---
Author Organization [facility] Address [facility] [place] [address] Care Team Providers Care Rice Farmer Name Role Phone DuongVeliakip Wells APRN Primary Care Provider +1- [phone] Encounter Details Date Type Department Care Team (Late st Contact Info) Description 02/26/2022 Orders [place] [phone] Dianna Shen, RN Other ulcerative colitis with [...] 9:00 AM EDT Office [place] [phone] Dion Barlow MD [facility] [place] [address] 09/01/2024 9:40 AM EDT Office Visit Cardiology at [address] [phone] Franky Shaver MD [facility] [place] [address] 09/01/2024 11:20 AM EDT Office Visit Dermatology at [facility] [address] [place] [address] Gómez Mercer MD [facility] DR [place] [address] 09/21/2024 2:45 PM EDT Office Visit [place] [phone] Trung Hoyos MD [facility] [place] [address] documented as of this encounter Results * CRP, acute inflammation (09/29/2022 12:09 PM EST) Pathologist [facility] C-Reactive Protein <3.0 <=4.9 mg/L [facility] Blood 09/29/2022 12:0 9 PM EST 09/29/2022 12:15 PM EST Narrative Resulting Agency Comment Spec In Lab Marcelle Weinberg ZINC MINER CHEMISTRY ORDERAB LES [facility] [place] [address] * Sedimentation rate (09/29/2022 12:09 PM EST) [...] Agency Comment Spec In Lab Marcelle Weinberg ZINC MINER HEMATOLOGY ORDERA BLES [facility] [place] [address] documented in this encounter Visit Diagnoses Diagnosis Other ulcerative colitis with rectal bleeding documented in this encounter Care Teams Rice Farmer Relationship Specialty Start Date End Date Deacon Watters APRN [address] [place] [address] PCP - General Family Medicine 02/17/22 documented as of this encounter
--- OUTSIDE RECORDS SUMMARY | 2024-07-22 13:06 | XMS_ITS | Encounter Summary ---
Author Organization [facility] Address [facility] [place] [address] Care Team Providers Care Cement Worker Name Role Phone Deacon Watters APRN Primary Care Provider +1- [phone] Reason for Visit * Consultation (Routine) - Closed Specialty Diagnoses / Procedures Referred By Perri t Referred To Contact Dermatology Diagnoses Basal cell carcinoma (BCC), unspecified site Becca Villegas APRN [address] [place] [address] [place] [address] Kingsley Finn MD [facility] DR EDDIE SANC[place] [address] Referral ID Status Reason Start Date Expiration Date V isits Requested Visits Authorized [id number] Closed Consult, Test & Treat PCP Updated and/or Approved 01/04/2024 01/03/2025 1 1 Encounter Details Date Type Department Care Team (Late st Contact Info) Description 01/28/2024 2:00 PM EST Office Visit Dermatology at [facility] [address] [place] [address] Kingsley Finn MD [facility] DR EDDIE [place] [address] Basal cell carcinoma of right [...] follow up with his or her concrete panel installer or other skin provider. 5. Discussed avoiding [...] and signed by: Kingsley Finn Dermatology [facility] documented in this encounter Plan of Treatment Upcoming Encounters Date Type Department Care Team (Late st Contact Info) Description 08/15/2024 9:00 AM EDT Office [place] [address] Dion Barlow MD [facility] [place] [address] 09/01/2024 9:40 AM EDT Office Visit Cardiology at [address] [address] Franky Shaver MD [facility] [place] [address] 09/01/2024 11:20 AM EDT Office Visit Dermatology at [facility] [address] [place] [address] Gómez Mercer MD [facility] DR EDDIE [place] [address] 09/21/2024 2:45 PM EDT Office Visit [place] [address] Trung Hoyos MD [facility] [place] [address] Scheduled Referrals Name Type Priority Associated Diagnoses Orde r Schedule Referral to Dermatology Outpatient Referral Routine Basal cell carcinoma (BCC), unspecified site Ordered: 01/04/2024 documented as of this encounter Visit Diagnoses Diagnosis Basal cell carcinoma of right side of nose Basal cell carcinoma of skin of other and unspecified parts of face documented in this encounter Care Teams Cement Worker Relationship Specialty Start Date End Date Deacon Watters, RESERVATION CLERK [address] [place] [address] PCP - General Family Medicine 02/17/22 documented as of this encounter
--- OUTSIDE RECORDS SUMMARY | 2024-07-22 13:06 | XMS_ITS | Encounter Summary ---
Author Organization [facility] Address [facility] [place] [address] Care Team Providers Care Crusher And Blender Operator Name Role Phone Duong Deacon Wells APRN Primary Care Provider +1- [phone] Encounter Details Date Type Department Care Team [...] 9:00 AM EDT Office [place] [address] Dion Barlow MD [facility] [place] [address] 09/01/2024 9:40 AM EDT Office Visit Cardiology at [address] [phone] Franky Shaver MD [facility] [place] [address] 09/01/2024 11:20 AM EDT Office Visit Dermatology at [facility] [address] [place] [address] Gómez Mercer MD [facility] DR EDDIE [place] [address] 09/21/2024 2:45 PM EDT Office Visit [place] [phone] Trung Hoyos MD [facility] [place] [address] documented as of this encounter Visit Diagnoses Not on filedocumented in this encounter Care Teams Crusher And Blender Operator Relationship Specialty Start Date End Date Deacon Watters, JAZMINE [address] [place] [address] PCP - General Family Medicine 02/17/22 documented as of this encounter
--- OUTSIDE RECORDS SUMMARY | 2024-07-22 13:06 | XMS_ITS | Encounter Summary ---
Author Organization [facility] [place] [address] Care Team Providers Care Retail Event Assistant Name Role Phone Deacon Watters APRN Primary Care Provider +1- [phone] Reason for Referral * Diagnostic Test (Routine) - Closed Specialty Diagnoses / Procedures Referred By Contac t Referred To Contact Radiology Diagnoses Left sided colitis without complications Procedures CT Abdomen & Pelvis w Contrast Dion Barlow MD [facility] [place] [address] Referral ID Status Reason Start Date Expiration Date V isits Requested Visits Authorized [id number] Closed Specialty Service Requested 04/22/2022 10/22/2023 1 1 Reason for Visit * Diagnostic Test (Routine) - Closed Specialty Diagnoses / Procedures Referred By Contac t Referred To Contact Radiology Diagnoses Left sided colitis without complications Procedures CT Abdomen & Pelvis w Contrast Dion Barlow MD [facility] [place] [address] Referral ID Status Reason Start Date Expiration Date V isits Requested Visits Authorized [id number] Closed Specialty Service Requested 04/22/2022 10/22/2023 1 1 Encounter Details Date Type Department Care Team (Latest Contact Info) Description 09/29/2022 1:05 PM EST - 09/29/2022 11:59 PM EST Hospital [place] [address] Dion Barlow MD [facility] [place] [address] Left sided colitis without complications Discharge Disposition: [...] EDT Office [place] [address] Dion Barlow MD [facility] [address] 09/01/2024 9:40 AM EDT Office Visit Cardiology at [address] [phone] Franky Shaver MD [facility] [place] [address] 09/01/2024 11:20 AM EDT Office Visit Dermatology at [facility] [address] [place] [address] Gómez Mercer MD [facility] DR [place] [address] 09/21/2024 2:45 PM EDT Office Visit Pain and Spine Center at [facility] [place] [address] Trung Hoyos MD [facility] [place] [address] documented as of this encounter Procedures Procedure [...] have questions please contact the health healthcare architect that requested your imaging first. ? Narrative [...] mLs documented in this encounter Care Teams Retail Event Assistant Relationship Specialty Start Date End Date Deacon Watters, JAZMINE [address] [place] [address] PCP - General Family Medicine 02/17/22 documented as of this encounter
--- OUTSIDE RECORDS SUMMARY | 2024-07-22 13:06 | XMS_ITS | Encounter Summary ---
Author Organization [facility] Address [facility] [place] [address] Care Team Providers Care Sales Representative Can[employer] Products Name Role Phone Duong Deacon Wells APRN Primary Care Provider +1- [phone] Encounter Details Date Type Department Care Team (Latest Contact Info) Description 03/28/2022 2:03 PM EDT - 03/28/2022 5:24 PM EDT Hospital Encounter [place] [address] Mona Turner MD [facility] [place] [address] Discharge Disposition: Home Social History Tobacco Use [...] occurs, please contact your Doctor. Please call [phone] before 8pm Mon-Fri with problems, questions or concerns. If you call after 8pm or on weekends, call the Hospital at [phone] and ask to speak to the Acoustical Tile Carpenters Supervisor cotton header and the circular gang saw operator will contact that person for you. When should you call for help? Call [phone] anytime you think you may need emergency [...] Where can you learn more? [facility] View your After Visit Summary and more online at [email or web address] If you would like to provide [...] cost to you. Content Version: 12.2 ?? [id number] [employer]. Care instructions adapted under license by [facility]. If you have questions about a medical condition or this instruction, always ask your healthcare professional. [employer] disclaims any warranty or liability for your [...] 9:00 AM EDT Office [place] [phone] Dion Barlow MD [facility] [place] [address] 09/01/2024 9:40 AM EDT Office Visit Cardiology at [address] [phone] Franky Shaver MD [facility] [place] [address] 09/01/2024 11:20 AM EDT Office Visit Dermatology at [address] [address] Gómez Mercer MD [facility] DR EDDIE [place] [address] 09/21/2024 2:45 PM EDT Office Visit [place] [address] Trung Hoyos MD [facility] [place] [address] documented as of this encounter Procedures Procedure Name Priority Date/Time Associated Diagnosis Comments SURGICAL PATHOLOGY REPORT Routine 03/28/2022 4:22 PM EDT SPECIMEN TO PATHOLOGY Routine 03/28/2022 4:22 PM EDT SPECIMEN TO PATHOLOGY Routine 03/28/2022 4:22 PM EDT SPECIMEN TO PATHOLOGY Routine 03/28/2022 4:22 PM EDT Colonoscopy, Biopsy ([id number]) 03/28/2022 3:30 PM EDT Other ulcerative colitis with rectal bleeding COLONOSCOPY Routine 03/28/2022 3:15 PM EDT documented in this encounter Results * Surgical Pathology Report (03/28/2022 4:22 PM EDT) Final Diagnosis [id number] ? Location: 4T; EA12; A The signing [...] Verified: ??04/03/2022 15:08 ??Pathologist Performed at: ??-[facility] Dept. of Pathology, [place], [place] SPECIMEN(S) SUBMITTED A - Sigmoid bx, [...] labeled C1. ??shb 04/03/2022 3:08 PM EDT [facility] GI Biopsy 03/28/2022 4:22 PM EDT 03/28/2022 4:22 PM EDT GI Biopsy 03/28/2022 4:22 PM EDT 03/28/2022 4:22 PM EDT GI Biopsy 03/28/2022 4:22 PM EDT 03/28/2022 4:22 PM EDT Mona Turner MD PATHOLOGY/CYTOLOGY O CEE [facility] [place] [address] * Specimen to Pathology (03/28/2022 4:22 PM EDT) AP Specimen 03/28/2022 4:22 PM EDT 03/28/2022 4:22 PM EDT Narrative [facility] - 03/28/2022 4:22 PM EDT Specimen requisition ordered. ??Separate Pathology report to follow Mona Turner MD PATHOLOGY/CYTOLOGY O CEE [facility] [place] [address] * Specimen to Pathology (03/28/2022 4:22 PM EDT) AP Specimen 03/28/2022 4:22 PM EDT 03/28/2022 4:22 PM EDT Narrative [facility] - 03/28/2022 4:22 PM EDT Specimen requisition ordered. ??Separate Pathology report to follow Mona Turner MD PATHOLOGY/CYTOLOGY O CEE Performing Organization Address [facility] [place] [address] * Specimen to Pathology (03/28/2022 4:22 PM EDT) AP Specimen 03/28/2022 4:22 PM EDT 03/28/2022 4:22 PM EDT Narrative [facility] - 03/28/2022 4:22 PM EDT Specimen requisition ordered. ??Separate Pathology report to follow Mona Turner MD PATHOLOGY/CYTOLOGY Ozzie MIKE Performing Organization Address [facility] [place] [address] * COLONOSCOPY (03/28/2022 3:15 PM EDT) COLONOSCOPY [facility] Endoscopy Procedure Date: 03/28/2022 3:15 PM ? Patient Name: Brian Rodriguez ? Date of : 1950 ? Age: 71 ? Order #: [id number] ? Instrument Name: [id number] ? Procedure: ? Colonoscopy Indications: ? Follow-up of ulcerative colitis Providers: ? Mona Turner MD, April Augustine ? RONY Archibald, Shay Maynard MD: ?Davina Barlow MD, Deacon Dior ? [facility]: ? Midazolam 4 mg IV, Fentanyl [...] ? was evaluated using the BBPS ? (Mears Bowel Preparation Scale) ? with scores of: [...] Procedure Code(s): ? --- Professional --- ? 04450, Colonoscopy, flexible; with ? removal of tumor(s), polyp(s), or ? other lesion(s) by snare technique ? 33289, 59, Colonoscopy, flexible; ? with biopsy, single or multiple CPT copyright 2020 [employer]. All rights reserved. The codes documented in this report are preliminary and upon floor inspector review may be revised to meet current compliance requirements. Attending Participation: ? I personally performed the entire procedure. ? Mona Turner MD _ Mona Turner MD 03/28/2022 4:33:58 PM This report has been signed electronically. Number of Addenda: 0 Note Initiated On: 03/28/2022 3:15 PM PROVATION 03/28/2022 3:15 PM EDT Deacon Watters CREDIT COLLECTION SPECIALIST GENERAL SURGICAL O RDERABLES Performing Organization Address City/State/[facility] Co de Phone Number PROVATION documented [...] RN) documented in this encounter Care Teams Sales Representative [employer] Relationship Specialty Start Date End Date Deacon Watters, CREDIT COLLECTION SPECIALIST [address] [place] [address] [address] [place] [address] PCP - General Family Medicine 02/17/22 documented as of this encounter
--- OUTSIDE RECORDS SUMMARY | 2024-07-22 13:06 | XMS_ITS | Encounter Summary ---
Author Organization [facility] [place] [address] Care Team Providers Care Food And Beverage Associate Name Role Phone Deacon Watters APRN Primary Care Provider +1- [phone] Encounter Details Date Type Department Care Team (Late st Contact Info) Description 10/06/2022 Telephone [place] [address] Marcelle Weinberg SYSTEM VALIDATION ENGINEER [facility] [place] [address] Social History Tobacco Use Types Packs/Day Years [...] of this CT to [facility] Alonso ( [facility] and he would also give her office a call. documented in this encounter Plan of Treatment Upcoming Encounters Date Type Department Care Team (Late st Contact Info) Description 08/15/2024 9:00 AM EDT Office [place] [address] Dion Barlow MD [facility] [place] [address] 09/01/2024 9:40 AM EDT Office Visit Cardiology at [address] [address] Franky Shaver MD [facility] [place] [address] 09/01/2024 11:20 AM EDT Office Visit Dermatology at [facility] [address] [place] [address] Gómez Mercer MD [facility] DR ED[place] [address] 09/21/2024 2:45 PM EDT Office Visit [place] [address] Trung Hoyos MD [facility] [place] [address] documented as of this encounter Visit Diagnoses Not on filedocumented in this encounter Care Teams Food And Beverage Associate Relationship Specialty Start Date End Date Deacon Watters, SYSTEM VALIDATION ENGINEER [address] [place] [address] PCP - General Family Medicine 02/17/22 documented as of this encounter
--- OUTSIDE RECORDS SUMMARY | 2024-07-22 13:06 | XMS_ITS | Encounter Summary ---
Author Organization [facility] Address [facility] [place] [address] Care Team Providers Care Projector Booth Operator Name Role Phone Deacon Watters APRN Primary Care Provider +1- [phone] Encounter Details Date Type Department Care Team (Late st Contact Info) Description 03/28/2022 3:15 PM EDT - 03/28/2022 4:00 PM EDT Surgery [place] [address] Mona Turner MD [facility] [place] [address] COLONOSCOPY FLEXIBLE, WITH BX (WRVU 3.56) Social [...] occurs, please contact your Doctor. Please call [phone] before 8pm Mon-Fri with problems, questions or concerns. If you call after 8pm or on weekends, call the Hospital at [phone] and ask to speak to the User Support Specialist ediphone operator and the chenille machine operator will contact that person for you. When should you call for help? Call [phone] anytime you think you may need emergency [...] any problems. Where can you learn more? [facility] View your After Visit Summary and [...] cost to you. Content Version: 12.2 ?? 0817-5684 [employer]. Care instructions adapted under license by [facility]. If you have questions about a medical condition or this instruction, always ask your healthcare professional. [employer] disclaims any warranty or liability for your [...] 1950 Admit date: 03/28/2022 Attending Physician: Mona Turenr MD Gastroenterology and Hepatology Pre-Procedure History and [...] 9:00 AM EDT Office [place] [phone] Dion Barlow MD [facility] [place] [address] 09/01/2024 9:40 AM EDT Office Visit Cardiology at [address] [phone] Franky Shaver MD [facility] [place] [address] 09/01/2024 11:20 AM EDT Office Visit Dermatology at [address] [address] Gómez Mercer MD [facility] DR EDDIE [place] [address] 09/21/2024 2:45 PM EDT Office Visit [facility] [place] [phone] Trung Hoyos MD [facility] [place] [address] documented as of this encounter Procedures Procedure Name Priority Date/Time Associated Diagnosis Comments SURGICAL PATHOLOGY REPORT Routine 03/28/2022 4:22 PM EDT SPECIMEN TO PATHOLOGY Routine 03/28/2022 4:22 PM EDT SPECIMEN TO PATHOLOGY Routine 03/28/2022 4:22 PM EDT SPECIMEN TO PATHOLOGY Routine 03/28/2022 4:22 PM EDT Colonoscopy, Biopsy ([id number]) 03/28/2022 3:30 PM EDT Other ulcerative colitis with rectal bleeding COLONOSCOPY Routine 03/28/2022 3:15 PM EDT documented in this encounter Results * Surgical Pathology Report (03/28/2022 4:22 PM EDT) Final Diagnosis [id number] ? Location: 4T; 12; A The signing [...] Christina Verified: ??04/03/2022 15:08 ??Pathologist Performed at: ??-[facility] [place], [place], [place] SPECIMEN(S) SUBMITTED A - Sigmoid bx, [...] PATHOLOGY/CYTOLOGY O CEE [facility] [place] [address] * Specimen to Pathology (03/28/2022 4:22 PM EDT) AP Specimen 03/28/2022 4:22 PM EDT 03/28/2022 4:22 PM EDT Narrative [facility] - 03/28/2022 4:22 PM EDT Specimen requisition ordered. ??Separate Pathology report to follow Mona Turner MD PATHOLOGY/CYTOLOGY O CEE [facility] [place] [address] * Specimen to Pathology (03/28/2022 4:22 PM EDT) AP Specimen 03/28/2022 4:22 PM EDT 03/28/2022 4:22 PM EDT Narrative [facility] - 03/28/2022 4:22 PM EDT Specimen requisition ordered. ??Separate Pathology report to follow Mona Turner MD PATHOLOGY/CYTOLOGY O CEE Performing Organization Address [facility] [place] [address] * Specimen to Pathology (03/28/2022 4:22 PM EDT) AP Specimen 03/28/2022 4:22 PM EDT 03/28/2022 4:22 PM EDT Narrative [facility] - 03/28/2022 4:22 PM EDT Specimen requisition ordered. ??Separate Pathology report to follow Mona Turner MD PATHOLOGY/CYTOLOGY O CEE Performing Organization Address [facility] [place] [address] * COLONOSCOPY (03/28/2022 3:15 PM EDT) COLONOSCOPY [facility] Endoscopy Procedure Date: 03/28/2022 3:15 PM ? Patient Name: Brian Rodriguez ? N: [id number] ? Date of : 1950 ? Age: 71 ? Order #: [id number] ? Instrument Name: [id number] ? Procedure: ? Colonoscopy Indications: ? Follow-up of ulcerative colitis Providers: ? Mona Turner MD, April Augustine ? Cristela, RONY, Shay Maynard MD: ?LAnalia Barlow MD, Deacon Dior ? [place] Medicines: ? Midazolam 4 mg IV, Fentanyl [...] ? was evaluated using the BBPS ? ([place] Bowel Preparation Scale) ? with scores of: [...] Procedure Code(s): ? --- Professional --- ? 20291, Colonoscopy, flexible; with ? removal of tumor(s), polyp(s), or ? other lesion(s) by snare technique ? 06655, 59, Colonoscopy, flexible; ? with biopsy, single or multiple CPT copyright 2020 [employer]. All rights reserved. The codes documented in this report are preliminary and upon java web architect review may be revised to meet current [...] RN) documented in this encounter Care Teams Projector Booth Operator Relationship Specialty Start Date End Date Deacon Watters, JAZMINE [address] [place] [address] [address] [place] [address] PCP - General Family Medicine 02/17/22 documented as of this encounter
--- OUTSIDE RECORDS SUMMARY | 2024-07-22 13:06 | XMS_ITS | Encounter Summary ---
Author Organization [facility] Address [facility] [place] [address] Care Team Providers Care Sawdust Drier Name Role Phone Deacon Watters APRN Primary Care Provider +1- [phone] Reason for Referral * Physical Therapy (Routine) - Closed Specialty Diagnoses / Procedures Referred By Contac t Referred To Contact Physical Therapy Diagnoses Spondylosis of cervical region without myelopathy or radiculopathy Santiago Morales PA [facility] [place] [address] Physical Therapy, [address] [place] [address] Referral ID Status Reason Start Date Expiration Date V isits Requested Visits Authorized [id number] Closed Evaluate and Treat 01/07/2024 07/05/2024 12 12 Reason for Visit * Reason Comments Neck Pain chronic neck pain/MR I 10/27/23 in [facility] * Consultation (Routine) - Closed Specialty Diagnoses / Procedures Referred By Contac t Referred To Contact [facility] Spine Center Diagnoses Cervicalgia Other chronic pain chronic neck pain/MRI 10/27/23 @ [facility] Deacon Watters APRN [address] [place] [address] [facility] [place] [address] Referral ID Status Reason Start Date Expiration Date V isits Requested Visits Authorized [id number] Closed Consult, Test & Treat PCP Updated and/or Approved 11/11/2023 05/10/2024 1 1 Encounter Details Date Type Department Care Team (Latest Contact Info) Description 01/07/2024 8:45 AM EST Office Visit [place] [address] Santiago Morales PA [facility] [place] [address] Spondylosis of cervical region without myelopathy or [...] the Center for [facility] @ [facility] for evaluation. Chief Complaint: Neck pain [...] light touch. Motor exam shows 4/5 left button sawyer strength; otherwise 5/5 throughout. Negativehoffman bilaterally. Imaging: [...] neck pain. He has some left hand button sawyer weakness but otherwise is neuro intact. Imaging [...] 9:00 AM EDT Office [place] [address] Dion Barlow MD [facility] [place] [address] 09/01/2024 9:40 AM EDT Office Visit Cardiology at [address] [address] Franky Shaver MD [facility] [place] [address] 09/01/2024 11:20 AM EDT Office Visit Dermatology at [address] [place] [address] Gómez Mercer MD [facility] [place] [address] 09/21/2024 2:45 PM EDT Office Visit [facility] [place] [phone] Trung Hoyos MD [facility] [place] [address] Scheduled Referrals Name Type Priority Associated Diagnoses Orde r Schedule Referral to Physical Therapy Outpatient Referral Routine Spondylosis of cervical region without myelopathy or radiculopathy Ordered: 01/07/2024 documented as of this encounter Visit Diagnoses Diagnosis Spondylosis of cervical region without myelopathy or radiculopathy Cervical spondylosis without myelopathy documented in this encounter Care Teams Sawdust Drier Relationship Specialty Start Date End Date Deacon Watters APRN [address] [place] [address] [address] [place] [address] PCP - General Family Medicine 02/17/22 documented as of this encounter
--- OUTSIDE RECORDS SUMMARY | 2024-07-22 13:06 | XMS_ITS | Encounter Summary ---
Author Organization [facility] Address [facility] [place] [address] Care Team Providers Care Facility Mechanic Name Role Phone Duong Deacon Wells APRN Primary Care Provider +1- [phone] Encounter Details Date Type Department Care Team [...] 9:00 AM EDT Office [place] [address] Dion Barlow MD [facility] [place] [address] 09/01/2024 9:40 AM EDT Office Visit Cardiology at [address] [phone] Franky Shaver MD [facility] [place] [address] 09/01/2024 11:20 AM EDT Office Visit Dermatology at [facility] [address] [place] [address] Gómez Mercer MD [facility] DR ED[place] [address] 09/21/2024 2:45 PM EDT Office Visit [place] [phone] Trung Hoyos MD [facility] [place] [address] documented as of this encounter Visit Diagnoses Not on filedocumented in this encounter Care Teams Facility Mechanic Relationship Specialty Start Date End Date Deacon Watters, JAZMINE [address] [place] [address] PCP - General Family Medicine 02/17/22 documented as of this encounter
--- OUTSIDE RECORDS SUMMARY | 2024-07-22 13:06 | XMS_ITS | Encounter Summary ---
Author Organization [facility] [place] [address] Care Team Providers Care Senior Report Developer Name Role Phone DuongDeacon Priscilla LUCERO Primary Care Provider +1- [phone] Encounter Details Date Type Department Care Team (Late st Contact Info) Description 11/10/2022 Telephone [place] [address] Dianna Shen RN Social History [...] 9:00 AM EDT Office [place] [address] Dion Barlow MD [facility] [place] [address] 09/01/2024 9:40 AM EDT Office Visit Cardiology at [address] [place] [phone] Franky Shaver MD [facility] [place] [address] 09/01/2024 11:20 AM EDT Office Visit Dermatology at [facility] [address] [place] [address] Gómez Mercer MD [facility] [place] [address] 09/21/2024 2:45 PM EDT Office Visit [facility] [place] [address] Trung Hoyos MD [facility] [place] [address] documented as of this encounter Visit Diagnoses Not on filedocumented in this encounter Care Teams Senior Report Developer Relationship Specialty Start Date End Date Deacon Watters APRN [address] [place] [address] PCP - General Family Medicine 02/17/22 documented as of this encounter
--- OUTSIDE RECORDS SUMMARY | 2024-07-22 13:06 | XMS_ITS | Encounter Summary ---
Author Organization [facility] [place] [address] Care Team Providers Care Electronics Engineering Technologist Name Role Phone Deacon Watters Priscilla LUCERO Primary Care Provider +1- [phone] Reason for Visit * Reason Onset Date Comments Medication Refill 08/22/2022 Encounter Details Date Type Department Care Team (Late st Contact Info) Description 08/22/2022 Refill [place] [phone] Dion Barlow MD [facility] [place] [address] Social History Tobacco Use Types Packs/Day Years [...] 9:00 AM EDT Office Visit [place] [address] Dion Barlow MD [facility] [place] [address] 09/01/2024 9:40 AM EDT Office Visit Cardiology at [address] [place] [address] Franky Shaver MD [facility] [place] [address] 09/01/2024 11:20 AM EDT Office Visit Dermatology at [facility] [address] [place] [address] Gómez Mercer MD [facility] [place] [address] 09/21/2024 2:45 PM EDT Office Visit [facility] [place] [address] Trung Hoyos MD [facility] [place] [address] documented as of this encounter Visit Diagnoses Not on filedocumented in this encounter Care Teams Electronics Engineering Technologist Relationship Specialty Start Date End Date Deacon Watters, LAY UP OPERATOR [address] [place] [address] PCP - General Family Medicine 02/17/22 documented as of this encounter
--- OUTSIDE RECORDS SUMMARY | 2024-07-22 13:06 | XMS_ITS | Encounter Summary ---
[place] [address] Care Team Providers Care Director Of Student Financial Aid Name Role Phone Deacon Watters APRN Primary Care Provider +1- [phone] Reason for Referral * Consultation (Routine) - Closed Specialty Diagnoses / Procedures Referred By Contwillard t Referred To Contact Pain and Spine Center Diagnoses Cervicalgia Other chronic pain chronic neck pain/MRI 10/27/23 @ [facility] Deacon Watters APRN [address] [place] [address] [facility] [place] [place] [address] Referral ID Status Reason Start Date Expiration Date V isits Requested Visits Authorized [id number] Closed Consult, Test & Treat PCP Updated and/or Approved 11/11/2023 05/10/2024 1 1 Encounter Details Date Type Department Care Team (Late st Contact Info) Description 11/18/2023 Transcribe Orders eD Incoming Referrals [phone] Deacon Watters APRN [address] [place], [place] [address] Cervicalgia; Other chronic pain Social History Tobacco [...] 9:00 AM EDT Office [place] [address] Dion Barlow MD [facility] [place] [address] 09/01/2024 9:40 AM EDT Office Visit Cardiology at [address] [address] Franky Shaver MD [facility] [place] [address] 09/01/2024 11:20 AM EDT Office Visit Dermatology at [place] [address] [place] [address] Gómez Mercer MD [facility] DR EDD[place] [address] 09/21/2024 2:45 PM EDT Office Visit [facility] [place] [address] Trung Hoyos MD [facility] [place] [address] Scheduled Referrals Name Type Priority Associated Diagnoses Orde r Schedule Referral to Spine Center Outpatient Referral Routine Cervicalgia Other chronic pain Ordered: 11/18/2023 documented as of this encounter Visit Diagnoses Diagnosis Cervicalgia Other chronic pain documented in this encounter Care Teams Director Of Student Financial Aid Relationship Specialty Start Date End Date Deacon Watters, PAEDIATRIC PHYSIOTHERAPIST [address] [place] [address] PCP - General Family Medicine 02/17/22 documented as of this encounter
--- OUTSIDE RECORDS SUMMARY | 2024-07-22 13:06 | XMS_ITS | Encounter Summary ---
Author Organization [facility] [place] [address] Care Team Providers Care It Senior Analyst Name Role Phone Deacon Watters Priscilla LUCERO Primary Care Provider +1- [phone] Reason for Visit * Reason Comments Medication Refill Encounter Details Date Type Department Care Team (Late st Contact Info) Description 01/11/2024 Ref[place] [address] Dion Barlow MD [facility] [place] [address] Social History Tobacco Use Types Packs/Day Years [...] 9:00 AM EDT Office [place] [address] Dion Barlow MD [facility] [place] [address] 09/01/2024 9:40 AM EDT Office Visit Cardiology at [address] [place] [address] Franky Shaver MD [facility] [place] [address] 09/01/2024 11:20 AM EDT Office Visit Dermatology at [facility] [address] [place] [address] Gómez Mercer MD [facility] [place] [address] 09/21/2024 2:45 PM EDT Office Visit [place] [address] Trung Hoyos MD [facility] [place] [address] documented as of this encounter Visit Diagnoses Not on filedocumented in this encounter Care Teams It Senior Analyst Relationship Specialty Start Date End Date Deacon Watters, PATIENT ACCESS REGISTRAR [address] [place] [address] PCP - General Family Medicine 02/17/22 documented as of this encounter
--- OUTSIDE RECORDS SUMMARY | 2024-07-22 13:06 | XMS_ITS | Encounter Summary ---
Author Organization [facility] Address [facility] [place] [address] Care Team Providers Care Rivet Thrower Name Role Phone Duong Deacon Wells APRN Primary Care Provider +1- [phone] Encounter Details Date Type Department Care Team (Latest Contact Info) Description 01/20/2024 9:28 AM EST - 01/20/2024 11:41 AM EST Hospital Encounter [place] [address] Anthony Hamlin MD [facility] [place] [address] Discharge Disposition: Home Social History Tobacco Use [...] occurs, please contact your Doctor. Please call [phone] before 8pm Mon-Fri with problems, questions or concerns. If you call after 8pm or on weekends, call the Hospital at [phone] and ask to speak to the Pbx Mechanic outside contractor sales and the tunnel elastic operator zigzag will contact that person for you. When should you call for help? Call [phone] anytime you think you may need emergency [...] any problems. Where can you learn more? [facility] View your After Visit Summary and more online at [email or web address] If you would like to provide [...] cost to you. Content Version: 12.2 ?? [id number] [employer]. Care instructions adapted under license by [facility]. If you have questions about a medical condition or this instruction, always ask your healthcare professional. [employer] disclaims any warranty or liability for your [...] 9:00 AM EDT Office [place] [address] Dion Barlow MD [facility] [place] [address] 09/01/2024 9:40 AM EDT Office Visit Cardiology at [address] [phone] Franky Shaver MD [facility] [place] [address] 09/01/2024 11:20 AM EDT Office Visit Dermatology at [address] [phone] Gómez Mercer MD [facility] [place] [address] 09/21/2024 2:45 PM EDT Office Visit [facility] [place] [address] Trung Hoyos MD [facility] [place] [address] documented as of this encounter Procedures Procedure [...] Routine 01/20/2024 10:24 AM EST Colonoscopy, Biopsy ([id number]) 01/20/2024 10:09 AM EST Left sided colitis without complications POCT GLUCOSE Routine 01/20/2024 10:05 AM EST POCT FINGERSTICK GLUCOSE Routine 01/20/2024 10:05 AM EST COLONOSCOPY Routine 01/20/2024 10:01 AM EST documented in this encounter Results * Specimen to Pathology (01/20/2024 10:48 AM EST) AP Specimen 01/20/2024 10:4 8 AM EST 01/20/2024 10:48 AM EST Narrative [facility] - 01/20/2024 10:48 AM EST Specimen requisition ordered. ??Separate Pathology report to follow Anthony Hamlin MD PATHOLOGY/CYTOLOGY O CEE Performing Organization Address [facility] Co de Phone Number [facility] [place] [address] * Specimen to Pathology (01/20/2024 10:48 AM EST) AP Specimen 01/20/2024 10:4 8 AM EST 01/20/2024 10:48 AM EST Narrative [facility] - 01/20/2024 10:48 AM EST Specimen requisition ordered. ??Separate Pathology report to follow Anthony Hamlin MD PATHOLOGY/CYTOLOGY O CEE Performing Organization Address City/[facility]/ZIP Co de Phone Number [facility] [place] [place] [address] * Specimen to Pathology (01/20/2024 10:48 AM EST) AP Specimen 01/20/2024 10:4 8 AM EST 01/20/2024 10:48 AM EST Narrative [facility] - 01/20/2024 10:48 AM EST Specimen requisition ordered. ??Separate Pathology report to follow Anthony Hamlin MD PATHOLOGY/CYTOLOGY O RDMELISSA Performing Organization Address City/[facility] [place] [address] * Specimen to Pathology (01/20/2024 10:48 AM EST) AP Specimen 01/20/2024 10:4 8 AM EST 01/20/2024 10:48 AM EST Narrative [facility] - 01/20/2024 10:48 AM EST Specimen requisition ordered. ??Separate Pathology report to follow nAthony Hamlin MD PATHOLOGY/CYTOLOGY O RDMELISSA Performing Organization Address [facility] Co de Phone Number [facility] [place] [address] * Specimen to Pathology (01/20/2024 10:48 AM EST) AP Specimen 01/20/2024 10:4 8 AM EST 01/20/2024 10:48 AM EST Narrative [facility] - 01/20/2024 10:48 AM EST Specimen requisition ordered. ??Separate Pathology report to follow Anthony Hamlin MD PATHOLOGY/CYTOLOGY O CEE Performing Organization Address [facility] Co de Phone Number [facility] [place] [address] * Specimen to Pathology (01/20/2024 10:48 AM EST) AP Specimen 01/20/2024 10:4 8 AM EST 01/20/2024 10:48 AM EST Narrative [facility] - 01/20/2024 10:48 AM EST Specimen requisition ordered. ??Separate Pathology report to follow Anthony Hamlin MD PATHOLOGY/CYTOLOGY O RDMELISSA Performing Organization Address City/[facility] Co de Phone Number [facility] [place] [address] * Surgical Pathology Report (01/20/2024 10:24 AM EST) Final Diagnosis [id number] ? Location: 4T; EA12; A The signing [...] Dilip Verified: ??01/29/2024 12:04 ??Pathologist Performed at: ??-[facility]ology, [place] [address] Guide Rail Cleaner: Joana Soler MD, FCAP, ??CLIA Certificate: [id number] SPECIMEN(S) SUBMITTED A - right colon, biopsy [...] labeled F1. ??sns 01/29/2024 12:04 PM EST [facility] GI Biopsy 01/20/2024 10:2 4 [...] EST Anthony Hamlin MD PATHOLOGY/CYTOLOGY O RDERABLES [facility] [address] [place] [address] * POCT Glucose (01/20/2024 10:05 AM EST) Glucose, POC 114 65 - 199 mg/dL [facility] Comment: Supplemental ranges: <140 mg/dL before meals <180 mg/dL all other times of the day Blood 01/20/2024 10:0 5 AM EST 01/20/2024 10:05 AM EST Anthony Hamlin MD POINT OF CARE TEST O RDERABLES [facility] [place] [address] * POCT Fingerstick Glucose (01/20/2024 10:05 AM EST) Glucose, POC 114 60 - 199 mg/dl 01/20/2024 10:0 5 AM EST Anthony Hamlin MD POINT OF CARE TEST O RDERABLES * COLONOSCOPY (01/20/2024 10:01 AM EST) COLONOSCOPY [facility] Procedure Date: 01/20/2024 10:01 AM ? Patient Name: Brian Rodriguez ? Date of : 1950 ? Age: 73 ? Order #: [id number] ? Instrument Name: [id number] ? Procedure: ? Colonoscopy Indications: ? Follow-up [...] ? physician, the nurse and the ? groundwater monitoring technician in the pre-procedure ? area in [...] 01/20/2024 10:0 1 AM EST Deacon Watters [employer] documented in [...] documented in this encounter Care Teams Rivet Thrower Relationship Specialty Start Date End Date Deacon Watters, JAZMINE [address] [place] [address] [address] [place] [address] PCP - General Family Medicine 02/17/22 documented as of this encounter
--- OUTSIDE RECORDS SUMMARY | 2024-07-22 13:06 | XMS_ITS | Encounter Summary ---
[place] [address] Care Team Providers Care Washerette Machine Operator Name Role Phone Duong Deacon Wells APRN Primary Care Provider +1- [phone] Encounter Details Date Type Department Care Team (Late st Contact Info) Description 02/12/2023 Telephone [place] [phone] Kelly Castillo RN Social History Tobacco Use [...] local ER. He would likely go to [place] if this is the case. Will ask regular IBD team to f/u with him in the AM. documented in this encounter Plan of Treatment Upcoming Encounters Date Type Department Care Team (Late st Contact Info) Description 08/15/2024 9:00 AM EDT Office [place] [phone] Dion Barlow MD [facility] [place] [address] 09/01/2024 9:40 AM EDT Office Visit Cardiology at [address] [place] [address] Franky Shaver MD [facility] [place] [address] 09/01/2024 11:20 AM EDT Office Visit Dermatology at [facility] [address] [place] [phone] Gómez Mercer MD [facility] [place] [address] 09/21/2024 2:45 PM EDT Office Visit [facility] [place] [address] Trung Hoyos MD [facility] [place] [address] documented as of this encounter Visit Diagnoses Not on filedocumented in this encounter Care Teams Washerette Machine Operator Relationship Specialty Start Date End Date Deacon Watters, JAZMINE [address] [place] [address] [address] [facility] [address] [place] [address] PCP - General Family Medicine 02/17/22 documented as of this encounter
--- OUTSIDE RECORDS SUMMARY | 2024-07-22 13:06 | XMS_ITS | Encounter Summary ---
Author Organization [facility] [place] [address] Care Team Providers Care Beamster Name Role Phone Deacon Watters APRN Primary Care Provider +1- [phone] Encounter Details Date Type Department Care Team (Late st Contact Info) Description 11/03/2022 Telephone [place] [address] Jarret Roa RN Social History Tobacco Use [...] weeks. Labs and stool studies sent to [facility]- He will call when he drops [...] 11/03/2022 2:40 PM EST Per Farideh Weinberg, PROCUREMENT MANAGER: Could you please check on him [...] 9:00 AM EDT Office Visit [place] [address] Dion Barlow MD [facility] [place] [address] 09/01/2024 9:40 AM EDT Office Visit Cardiology at [address] [address] Franky Shaver MD [facility] [place] [address] 09/01/2024 11:20 AM EDT Office Visit Dermatology at [facility] [address] [place] [address] Gómez Mercer MD [facility] DR EDDIE [place] [address] 09/21/2024 2:45 PM EDT Office Visit Pain and Spine Center at [facility] [place] [address] Trung Hoyos MD [facility] [place] [address] documented as of this encounter Visit Diagnoses Not on filedocumented in this encounter Care Teams Beamster Relationship Specialty Start Date End Date Deacon Watters APRN [address] [place] [address] [address] [place] [address] PCP - General Family Medicine 02/17/22 documented as of this encounter
--- OUTSIDE RECORDS SUMMARY | 2024-07-22 13:06 | XMS_ITS | Encounter Summary ---
[place] [address] Care Team Providers Care Programs Manager Name Role Phone Deacon Watters APRN Primary Care Provider +1- [phone] Encounter Details Date Type Department Care Team (Late st Contact Info) Description 05/05/2022 Telephone [place] [phone] Dianna Shen RN Social History Tobacco Use [...] - 05/23/2022 8:27 AM EDT Marbella from [facility] called to check on the status of this CT she can be reached at [phone]. * Telephone Encounter - Dianna Shen RN - 05/19/2022 11:04 AM EDT 05/16 TC to Brian to see where is at as far as abdominal pain. He states that pain has not improved. Asked if he has metal in his body and he states that he does. * Telephone Encounter - Dianna Shen RN - 05/05/2022 4:20 PM EDT left from radiology at [facility]. Due to contrast shortage, contrast IV is not being utilized for outpatient at their facility. They could schedule CT with oral only. Otherwise they are booking out to August for patients who need IV contrast. documented in this encounter Plan of Treatment Upcoming Encounters Date Type Department Care Team (Late st Contact Info) Description 08/15/2024 9:00 AM EDT Office [place] [address] Dion Barlow MD [facility] [place] [address] 09/01/2024 9:40 AM EDT Office Visit Cardiology at [address] [address] Franky Shaver MD [facility] [place] [address] 09/01/2024 11:20 AM EDT Office Visit Dermatology at [address] [place] [address] Gómez Mercer MD [facility] DR EDDIE [place] [address] 09/21/2024 2:45 PM EDT Office Visit Pain and Spine Center at [facility] [place] [address] Trung Hoyos MD [facility] [place] [address] documented as of this encounter Visit Diagnoses Not on filedocumented in this encounter Care Teams Programs Manager Relationship Specialty Start Date End Date Deacon Watters, JAZMINE [address] [place] [address] PCP - General Family Medicine 02/17/22 documented as of this encounter
--- OUTSIDE RECORDS SUMMARY | 2024-07-22 13:06 | XMS_ITS | Encounter Summary ---
Author Organization [facility] [place] [address] Care Team Providers Care Business Services Sales Representative Name Role Phone Deacon Watters Priscilla LUCERO Primary Care Provider +1- [phone] Reason for Visit * Reason Onset Date Comments Medication Refill 09/21/2023 Encounter Details Date Type Department Care Team (Late st Contact Info) Description 09/21/2023 Refill [place] [phone] Dion Barlow MD [facility] [place] [address] Social History Tobacco Use Types Packs/Day Years [...] 9:00 AM EDT Office [place] [phone] Dion Barlow MD [facility] [place] [address] 09/01/2024 9:40 AM EDT Office Visit Cardiology at [address] [place] [address] Franky Shaver MD [facility] [address] 09/01/2024 11:20 AM EDT Office Visit Dermatology at [facility] [address] [place] [address] Gómez Mercer MD [facility] [address] 09/21/2024 2:45 PM EDT Office Visit [facility] [place] [address] Trung Hoyos MD [facility] [place] [address] documented as of this encounter Visit Diagnoses Not on filedocumented in this encounter Care Teams Business Services Sales Representative Relationship Specialty Start Date End Date Deacon Watters, FRAME ASSEMBLER [address] [place] [address] PCP - General Family Medicine 02/17/22 documented as of this encounter
--- OUTSIDE RECORDS SUMMARY | 2024-07-22 13:06 | XMS_ITS | Encounter Summary ---
Author Organization [facility] Address [facility] [place] [address] Care Team Providers Care Screw Cutter Name Role Phone DuongDeacon Priscilla LUCERO Primary Care Provider +1- [phone] Encounter Details Date Type Department Care Team [...] AM EDT Office Visit [place] [address] Dion Barlow MD [facility] [place] [address] 09/01/2024 9:40 AM EDT Office Visit Cardiology at [address] [phone] Franky Shaver MD [facility] [place] [address] 09/01/2024 11:20 AM EDT Office Visit Dermatology at [facility] [address] [place] [address] Gómez Mercer MD [facility] DR EDD[facility] [place] [address] 09/21/2024 2:45 PM EDT Office Visit Pain and Spine Center at [facility] [place] [address] Trung Hoyos MD [facility] [place] [address] documented as of this encounter Visit Diagnoses Not on filedocumented in this encounter Care Teams Screw Cutter Relationship Specialty Start Date End Date Deacon Watters, JAZMINE [address] [place] [address] PCP - General Family Medicine 02/17/22 documented as of this encounter
--- OUTSIDE RECORDS SUMMARY | 2024-07-22 13:06 | XMS_ITS | Encounter Summary ---
[place] [address] Care Team Providers Care Investigation Manager Name Role Phone Deacon Watters APRN Primary Care Provider +1- [phone] Encounter Details Date Type Department Care Team (Late st Contact Info) Description 02/26/2022 Tele[place] [address] Dianna Shen RN Social History Tobacco Use [...] Brian reminding him to get labs. Called [facility] and they had not been done yet. * Telephone Encounter - Dianna Shen RN - 02/26/2022 4:06 PM EDT TC placed to follow up with Brian. Reports improvement in diarrhea. Says he has a scheduled colonoscopy 03/28. Discussed elevation in labs of CRP and ESR, as well as mild anemia per Farideh. Patient plans to have labs rechecked at [facility] on Thursday. documented in this encounter Plan of Treatment Upcoming Encounters Date Type Department Care Team (Late st Contact Info) Description 08/15/2024 9:00 AM EDT Office [place] [address] Dion Barlow MD [facility] [place] [address] 09/01/2024 9:40 AM EDT Office Visit Cardiology at [address] [address] Franky Shaver MD [facility] [place] [address] 09/01/2024 11:20 AM EDT Office Visit Dermatology at [address] [address] Gómez Mercer MD [facility] DR EDDIE SANCHEZ-DERMATOLOGY [place], [place] [address] 09/21/2024 2:45 PM EDT Office Visit [place] [address] Trung Hoyos MD [facility] [place] [address] documented as of this encounter Visit Diagnoses Not on filedocumented in this encounter Care Teams Investigation Manager Relationship Specialty Start Date End Date Deacon Watters APRN [address] [place] [address] [address] [facility] 1 [place] [address] PCP - General Family Medicine 02/17/22 documented as of this encounter
--- OUTSIDE RECORDS SUMMARY | 2024-07-22 13:06 | XMS_ITS | Encounter Summary ---
Author Organization [facility] [place] [address] Care Team Providers Care Charge Machine Operator Name Role Phone Deacon Watters APRN Primary Care Provider +1- [phone] Encounter Details Date Type Department Care Team (Late st Contact Info) Description 10/27/2023 Ancillary Procedure [place] [address] Deacon Watters APRN [address] [place], [place] [address] Social History Tobacco Use Types Packs/Day Years [...] 9:00 AM EDT Office [place] [address] Dion Barlow MD [facility] [place] [address] 09/01/2024 9:40 AM EDT Office Visit Cardiology at [address] [place] [address] Franky Shaver MD [facility] [address] 09/01/2024 11:20 AM EDT Office Visit Dermatology at [facility] [address] [place] [address] Gómez Mercer MD [facility] DR EDDIE [place] [address] 09/21/2024 2:45 PM EDT Office Visit [facility] [place] [address] Trung Hoyos MD [facility] [place] [address] documented as of this encounter Procedures Procedure Name Priority Date/Time Associated Diagnosis Comments FILM LIBRARY STORAGE ONLY MR SPINE Routine 10/27/2023 12:00 AM EST documented in this encounter Results * Film Library- Storage Only MR Spine (10/27/2023 12:00 AM EST) Narrative [facility] - 11/11/2023 10:39 AM EST This exam is auto-finalizing. It's purpose is for storage only. Deacon Watters APRN IMG FILM LIBRARY O RDERABLES [place], [place] documented in this encounter Visit Diagnoses Not on filedocumented in this encounter Care Teams Charge Machine Operator Relationship Specialty Start Date End Date Deacon Watters APRN [address] [place] [address] PCP - General Family Medicine 02/17/22 documented as of this encounter
--- OUTSIDE RECORDS SUMMARY | 2024-07-22 13:06 | XMS_ITS | Encounter Summary ---
Author Organization [facility] Address [facility] [place] [address] Care Team Providers Care Cycle Consultant Name Role Phone Deacon Watters APRN Primary Care Provider +1- [phone] Reason for Referral * Diagnostic Test (Routine) - Closed Specialty Diagnoses / Procedures Referred By Contac t Referred To Contact Radiology Diagnoses Left sided colitis without complications Procedures CT Abdomen & Pelvis w Contrast Dion Barlow MD [facility] [place] [address] Referral ID Status Reason Start Date Expiration Date V isits Requested Visits Authorized [id number] Closed Specialty Service Requested 04/22/2022 10/22/2023 1 1 Encounter Details Date Type Department Care Team (Late st Contact Info) Description 04/22/2022 8:00 AM EDT Office Visit [place] [address] Dion Barlow MD [facility] [place] [address] Left sided colitis without complications; Tick bite [...] - CT scan to be arranged at [facility] in [facility] for left lower quadrant abd [...] Overview Note: ? Colonoscopy 04/08/10 (Dr. Gomes [facility]) - inflammation only within the rectum and sigmoid; extent of the exam was to the hepatic flexure; biopsies proximal to the sigmoid nl ?? Repeat exam 11/27/11 ([facility]): mildly active colitis in the sigmoid colon [...] Interval History: Last visit with Farideh Mathur ADOBE BLOCK MAKER 01/2022 Just had colo with Dr. Turner [...] adenopathy and no thyromegaly. HEENT: PERRL, EOMI, CUTTER V GROOVE and OP clear without ulceration or lesions. [...] of : 1950 Age: 71 Order #: [id number] Instrument Name: [id number] Procedure: Colonoscopy Indications: Follow-up of ulcerative colitis [...] bowel preparation was evaluated using the BBPS ([place] Bowel Preparation Scale) with scores of: Right [...] referring physician. Procedure Code(s): --- Professional --- 86217, Colonoscopy, flexible; with removal of tumor(s), polyp(s), or other lesion(s) by snare technique 42836, 59, Colonoscopy, flexible; with biopsy, single or multiple CPT copyright 2020 [employer]. All rights reserved. The codes documented in this report are preliminary and upon compliance reviewer review may be revised to meet current compliance requirements. Attending Participation: I personally performed the entire procedure. Mona Turner MD Mona Turner MD 03/28/2022 4:33:58 PM This report has been signed electronically. Number of Addenda: 0 Note Initiated On: 03/28/2022 3:15 PM ??? Surgical Pathology Report 03/28/2022 Final Value:[id number] Location: 4T; EA12; A The signing pathologist [...] Christina Verified: 04/03/2022 15:08 Pathologist Performed at: -[facility] Dept. of Pathology, [place], [place] SPECIMEN(S) SUBMITTED A - Sigmoid bx, [...] en toto in 1 cassette labeled C1. [facility] Outpatient Visit on 02/19/2022 Component [...] Final Recent endoscopic procedures 06/28/21 EGD ( [facility]): Pre op Dx; Dysphagia Post op DX: [...] - CT scan to be arranged at [facility] in [facility] for left lower quadrant abd [...] spent 25 min today counseling the patient [id number] on the issues outlined above and 10 minutes reviewing the chart, preparing for this visit, documenting, and implementing the plan. Davina Barlow MD Office Rnmicrostrategy bi developer Co-Director, [facility] Section of Gastroenterology [place] [address] documented in this encounter Plan of Treatment Upcoming Encounters Date Type Department Care Team (Late st Contact Info) Description 08/15/2024 9:00 AM EDT Office Visit Gastroenterology at [place] [phone] Dion Barlow MD [facility] [place] [address] 09/01/2024 9:40 AM EDT Office Visit Cardiology at [address] [address] Franky Shaver MD [facility] [place] [address] 09/01/2024 11:20 AM EDT Office Visit Dermatology at [facility] [address] [place] [address] Gómez Mercer MD [facility] DR EDD[place] [address] 09/21/2024 2:45 PM EDT Office Visit Pain [place] [phone] Trung Hoyos MD [facility] [place] [address] documented as of this encounter Procedures Procedure [...] have questions please contact the health care team assistant that requested your imaging first. ? Electronically signed by: Papo Singer MD, [facility] ([phone]), at 09/29/2022 4:46 PM Narrative 09/29/2022 4:46 [...] 8:51 AM EDT) Neutrophil % 68.0 % [facility] Neutrophil Absolute 4.59 1.70 - 6.10 x10(3)/[facility] Lymph % 20.1 % [facility] Lymphocytes Abs 1.4 0.9 - 3.2 x10(3)/[facility] Monocyte % 7.1 % [facility] Monocyte Abs 0.5 0.3 - 0.9 x10(3)/[facility] LABOR[facility]ORY Eos % 3.8 % [facility] Eosinophils Abs 0.3 0.0 - 0.4 x10(3)/[facility] Basophil % 0.7 % [facility] Baso Absolute 0.0 0.0 - 0.1 x10(3)/[facility] Immature Gran % 0.30 % [facility] Comment: Immature granulocytes(IG's)percentage and absolute count will include metamyelocytes, myelocytes, and promyelocytes. Blood smears from CBCs yielding IG's will be scanned manually for concordance. If this scan disagrees with the automated IG or if promyelocytes are noted, a manual differential will be performed. Immature Gran Absolute 0.02 0.00 - 0.04 x10(3)/[facility] Blood 04/22/2022 8:51 AM EDT 04/22/2022 8:57 AM EDT Narrative Resulting Agency Comment Spec In Lab L Karthik Barlow MD HEMATOLOGY ORDERABLE S [facility] [place] [address] * (ABNORMAL) Hemogram (04/22/2022 8:51 AM EDT) White Blood Cell 6.8 4.0 - 9.5 x10(3)/[facility] LABORATORY Red Blood Cell 3.70(L) 4.58 - 5.54 x10(6)/[facility] LAB[facility]ORY Hemoglobin 12.4(L) 13.7 - 16.5 g/dL [facility] Hematocrit 37.5(L) 40.5 - 48.5 % [facility] Mean Cell Volume 101.4(H) 82.9 - 93.1 [facility] Mean Cell Hemoglobin 33.5(H) 27.5 - 32.[address] [facility] Mean Cell Hemoglobin Concentration 33.1 32.0 - 35.7 g/dL [facility] Platelet 198 145 - 357 x10(3)/[facility] LABORATORY RDW Standard Deviation 45.2(H) 36.0 - 45.0 [facility] RDW coefficient of variation 12.2 11.4 - 13.8 % [facility] Mean Platelet Volume 11.0 7.6 - 12.9 [facility] NRBC% auto 0.0 % [facility] NRBC Absolute 0.000 0.000 - 0.000 x10(3)/[facility] Blood 04/22/2022 8:51 AM EDT 04/22/2022 8:57 AM EDT Narrative Resulting Agency Comment Spec In Lab L Karthik Barlow MD HEMATOLOGY ORDERABLE S [facility] [place] [address] * (ABNORMAL) Basic Metabolic Panel (non-fasting) (04/22/2022 8:51 AM EDT) Glucose 206(H) 65 - 199 mg/dL [facility] Comment:Diabetes: >=200 mg/d L plus symptoms Blood Urea Nitrogen 21(H) 10 - 20 mg/dL [facility] Creatinine 1.17 0.80 - 1.50 mg/dL [facility] Sodium 141 135 - 145 mmol/L [facility] Potassium 4.6 3.5 - 5.0 mmol/L [facility] Comment: Please note: ??Patients with WBC >100,000 may have falsely elevated Potassium levels. ??For accurate Potassium quantification in these patients send serum separator tube (gold top) for subsequent determinations. ??Contact the Clinical Chemistry Laboratory if there are any questions. Chloride 104 98 - 107 mmol/L [facility] Carbon Dioxide 26 22 - 31 mmol/L [facility] Anion Gap 11 5 - 15 mmol/L [facility] Calcium 10.1 8.5 - 10.5 mg/dL [facility] Est Glomerular Filtration Rate 61 >=60 mL/min/1. 73 m?? [facility] Comment: This patient? s estimated [...] MD CHEMISTRY ORDERABLES Performing Organization Address [facility]/ZIP Co de Phone Number [facility] [place] [address] * CRP, acute inflammation (04/22/2022 8:51 AM EDT) C-Reactive Protein 3.3 <=4.9 mg/L [facility] Blood 04/22/2022 8:51 AM EDT 04/22/2022 8:57 AM EDT Narrative Resulting Agency Comment Spec In Lab L Karthik Barlow MD CHEMISTRY ORDERABLES Performing Organization Address [facility] Co de Phone Number [facility] [place] [address] * Sedimentation rate (04/22/2022 8:51 AM EDT) Sedimentation Rate Automated 36 3 - 46 mm/hr [facility] [...] HEMATOLOGY ORDERABLE S Performing Organization Address [facility] Co de Phone Number [facility] [place] [address] documented in this encounter Visit Diagnoses Diagnosis Left sided colitis without complications Left sided ulcerative (chronic) colitis Tick bite of abdominal wall, initial encounter Gastroesophageal reflux disease, unspecified whether esophagitis present Left sided colitis without complications Left sided ulcerative (chronic) colitis documented in this encounter Care Teams Cycle Consultant Relationship Specialty Start Date End Date Deacon Watters APRN [address] [place] [address] PCP - General Family Medicine 02/17/22 documented as of this encounter
--- OUTSIDE RECORDS SUMMARY | 2024-07-22 13:06 | XMS_ITS | Encounter Summary ---
Author Organization [facility] [place] [address] Care Team Providers Care Reclamation Furnace Operator Name Role Phone Deacon Watters JAZMINE Primary Care Provider +1- [phone] Reason for Visit * Reason Onset Date Comments Medication Refill 08/22/2022 Encounter Details Date Type Department Care Team (Late st Contact Info) Description 08/22/2022 Refill [place] [phone] Dion Barlow MD [facility] [place] [address] Social History Tobacco Use Types Packs/Day Years [...] 9:00 AM EDT Office [place] [phone] Dion Barlow MD [facility] [place] [address] 09/01/2024 9:40 AM EDT Office Visit Cardiology at [address] [place] [address] Franky Shaver MD [facility] [place] [address] 09/01/2024 11:20 AM EDT Office Visit Dermatology at [facility] [address] [place] [phone] Gómez Mercer MD [facility] [place] [address] 09/21/2024 2:45 PM EDT Office Visit [place] [address] Trung Hoyos MD [facility] [place] [address] documented as of this encounter Visit Diagnoses Not on filedocumented in this encounter Care Teams Reclamation Furnace Operator Relationship Specialty Start Date End Date Deacon Watters, INSTALLATION SUPERVISOR [address] [place] [address] PCP - General Family Medicine 02/17/22 documented as of this encounter
--- OUTSIDE RECORDS SUMMARY | 2024-07-22 13:06 | XMS_ITS | Encounter Summary ---
Author Organization [facility] Address [facility] [place] [address] Care Team Providers Care Oyster Shucker Name Role Phone Duong Deacon Wells APRN Primary Care Provider +1- [phone] Encounter Details Date Type Department Care Team (Latest Contact Info) Description 12/07/2023 8:00 AM EST Office [place] [address] Dion Barlow MD [facility] [place] [address] Left sided colitis without complications Social History [...] the next approximately eight weeks, please call [phone] to schedule the exam. 5. Repeat routine labs today. 6. Follow-up at the time of colonoscopy and in the office with Farideh Weinberg APRN in about 6-8 months. documented in this encounter Progress Notes * Dion Barlow MD - 12/07/2023 8:00 AM EST Images from the original note were not included. [facility] IBD PROGRAM ESTABLISHED PATIENT VISIT Patient Active Problem List Diagnosis Ulcerative colitis Overview Note: Colonoscopy 04/08/10 (Dr. Gomes [facility]) - inflammation only within the rectum and sigmoid; extent of the exam was to the hepatic flexure; biopsies proximal to the sigmoid nl Repeat exam 11/27/11 ([facility]): mildly active colitis in the sigmoid colon and a small cecal patch. Suspected lack of distal involvement due to topical therapies; sigmoid diverticulosis; nl ileum. Biopsies with active colitis on the L but not R colon. 4 mm TA in the transverse Flex sig (03/16/12) for screening for [facility]. Mild (aclvo 1) colitis to 25 cm - rectum spared EGD (2018): normal [done for gastric thickening on CT] 02/26/21 Colonoscopy: Ulcerative colitis partially treated with only mild activity in the distal rectum.Moderate diverticulosis from sigmoid to ascending colon. Several HPs and one TA. [place] 03/2022 - [place] 1 limited to rectosigmoid, [...] bladder. Was referred to his urologist at [facility]. He reports that he has a [...] for further details re current symptoms. - [facility] Pre-Visit Questionnaire 12/07/2023 7:54 AM EST [...] varicosities in both legs HEENT: PERRL, EOMI, JOB RECRUITER and OP clear without ulceration or lesions. LUNGS: Clear to auscultation bilaterally. COR: Regular, normal S1 and S2 without murmurs ABD: Normal active bowel sounds. Soft and non-distended. Mild tenderness to deep palpation in the left lower quadrant more than the right lower quadrant EXT: Trace bilateral edema. Laboratory studies, imaging, and procedures (my review of prior records): Labs reviewed from [facility] 01/2023. CBC stable. Creatinine 1.6. Mild [...] neighbor. He is to follow-up with his primary school teacher, Deacon Watters APRN, in early December. Also [...] the next approximately 8 weeks, please call [phone] to schedule the exam. 5. Repeat routine labs today. 6. Follow-up at the time of colonoscopy and in the office with Farideh Weinebrg APRN in about 6-8 months. Davina Barlow MD Yard Jackerlivestock ranch hand Co-Director, [facility] Section of Gastroenterology [place] [address] documented in this encounter Plan of Treatment Upcoming Encounters Date Type Department Care Team (Late st Contact Info) Description 08/15/2024 9:00 AM EDT Office [place] [address] Dion Barlow MD [facility] [address] 09/01/2024 9:40 AM EDT Office Visit Cardiology at [address] [place] [phone] Franky Shaver MD [facility] [place] [address] 09/01/2024 11:20 AM EDT Office Visit Dermatology at [facility] [address] [place] [address] óGmez Mercer MD [facility] [place] [address] 09/21/2024 2:45 PM EDT Office Visit [place] [phone] Trung Hoyos MD [facility] [address] Scheduled Orders Name Type Priority Associated Diagnoses [...] 8:53 AM EST) Neutrophil % 70.6 % [facility] Neutrophil Absolute 4.29 1.70 - 6.10 x10(3)/[facility] LABORATORY Lymph % 20.4 % [facility] Lymphocytes Abs 1.2 0.9 - 3.2 x10(3)/[facility] LABORATORY Monocyte % 5.9 % [facility] Monocyte Abs 0.4 0.3 - 0.9 x10(3)/[facility] LABOR[facility]ORY Eos % 2.1 % [facility] Eosinophils Abs 0.1 0.0 - 0.4 x10(3)/[facility] LABORATORY Basophil % 0.7 % [facility] Baso Absolute 0.0 0.0 - 0.1 x10(3)/[facility] LABORATORY Immature Gran % 0.30 % [facility] Comment: Immature granulocytes(IG's)percentage and absolute count [...] L Karthik Barlow MD HEMATOLOGY ORDERABLE S [facility] [place] [address] * (ABNORMAL) Hemogram (12/07/2023 8:53 AM EST) White Blood Cell 6.1 4.0 - 9.5 x10(3)/mc L [facility] Red Blood Cell 3.87(L) 4.58 - 5.54 x10(6)/mc L [facility] Hemoglobin 12.8(L) 13.7 - 16.5 g/dL [facility] Hematocrit 37.5(L) 40.5 - 48.5 % [facility] Mean Cell Volume 96.9(H) 82.9 - 93.1 fL [facility] Mean Cell Hemoglobin 33.1(H) 27.5 - 32.1 pg [facility] Mean Cell Hemoglobin Concentration 34.1 32.0 - 35.7 g/dL [facility] Platelet 199 145 - 357 x10(3)/mc L [facility] RDW Standard Deviation 44.2 36.0 - 45.0 fL [facility] RDW coefficient of variation 12.6 11.4 - 13.8 % [facility] Mean Platelet Volume 11.2 7.6 - 12.9 fL [facility] NRBC% auto 0.0 % [facility] NRBC Absolute 0.000 0.000 - 0.000 x10(3)/[facility] LABORATORY Blood 12/07/2023 8:53 AM EST 12/07/2023 9:03 AM EST Narrative Resulting Agency Comment Spec In Lab L Karthik Barlow MD HEMATOLOGY ORDERABLE S [facility] [place] [address] * CRP, acute inflammation (12/07/2023 8:53 AM EST) C-Reactive Protein <3.0 <=4.9 mg/L [facility] Blood 12/07/2023 8:53 AM EST 12/07/2023 9:03 AM EST Narrative Resulting Agency Comment Spec In Lab L Karthik Barlow MD CHEMISTRY ORDERABLES [facility] [place] [address] * (ABNORMAL) Comprehensive metabolic panel (non-fasting) (12/07/2023 8:53 AM EST) Glucose 140 65 - 199 mg/dL [facility] Comment:Diabetes: >=200 mg/d L plus symptoms Blood Urea Nitrogen 12 10 - 20 mg/dL [facility] Creatinine 1.05 0.80 - 1.50 mg/dL [facility] Sodium 144 135 - 145 mmol/L [facility] Potassium 4.0 3.5 - 5.0 mmol/L [facility] Comment: Please note: ??Patients with WBC >100,000 may have falsely elevated Potassium levels. ??For accurate Potassium quantification in these patients send serum separator tube (gold top) for subsequent determinations. ??Contact the Clinical Chemistry Laboratory if there are any questions. Chloride 109(H) 98 - 107 mmol/L [facility] Carbon Dioxide 24 22 - 31 mmol/L [facility] Anion Gap 11 5 - 15 mmol/L [facility] Calcium 9.5 8.5 - 10.5 mg/dL [facility] Protein, Total 7.8 6.1 - 8.0 g/dL [facility] Albumin 4.2 3.2 - 5.2 g/dL [facility] Aspartate Aminotransferase 13 0 - 39 unit/L [facility] Alanine Aminotransferase 15 0 - 55 unit/L [facility] Alkaline Phosphatase 77 40 - 130 unit/L [facility] Bilirubin, Total 0.4 0.2 - 1.3 mg/dL [facility] Est Glomerular Filtration Rate 74 >=60 mL/min/1. 73 m?? [facility] Comment: This patient's estimated GFR was [...] Spec In Lab L Krathik Barlow MD [place] [address] documented in this encounter Visit Diagnoses Diagnosis Left sided colitis without complications Left sided ulcerative (chronic) colitis documented in this encounter Care Teams Oyster Shucker Relationship Specialty Start Date End Date Deacon Watters, SAAS ARCHITECT [address] [place] [address] PCP - General Family Medicine 02/17/22 documented as of this encounter
--- OUTSIDE RECORDS SUMMARY | 2024-07-22 13:06 | XMS_ITS | Encounter Summary ---
Author Organization [facility] Address [facility] [place] [address] Care Team Providers Care Candy Puller Name Role Phone Deacon Watters APRN Primary Care Provider +1- [phone] Encounter Details Date Type Department Care Team (Late st Contact Info) Description 09/29/2022 11:00 AM EST Office [place] [address] Marcelle Weinberg AREA ATTENDANT [facility] [place] [address] Left sided colitis without complications; Other ulcerative [...] Note: ? Colonoscopy 04/08/10 (Dr. Gomes [facility]) - inflammation only within the rectum and sigmoid; extent of the exam was to the hepatic flexure; biopsies proximal to the sigmoid nl ?? [place] exam [place]/11 [place] mildly active colitis in the sigmoid colon [...] was cancer, followed by Dr. Carrillo, at [facility]. IBD Questionnaire No questionnaires on file. IBD [...] Vitals: 09/29/22 1108 BP: 153/72 BP Location ([facility]): Left arm Patient Position: Sitting BP Cuff [...] Disease Center Section of [place]astroenter[place] [address] documented in this encounter Miscellaneous Notes * Addendum Note - Andres De Dios - 09/29/2022 11:00 AM ESTAddended by: ANDRES DE DIOS on: 09/29/2022 12:05 PM Modules accepted: Orders documented in this encounter Plan of Treatment Upcoming Encounters Date Type Department Care Team (Late st Contact Info) Description 08/15/2024 9:00 AM EDT Office [place] [address] Dion Barlow MD [facility] [place] [address] 09/01/2024 9:40 AM EDT Office Visit Cardiology at [address] [place] [address] Franky Shaver MD [facility] [place] [address] 09/01/2024 11:20 AM EDT Office Visit Dermatology at [facility] [address] [place] [address] Gómez Mercer MD [facility] [place] [address] 09/21/2024 2:45 PM EDT Office Visit [facility] [place] [phone] Trung Hoyos MD [facility] [place] [address] documented as of this encounter Procedures Procedure [...] Agency Comment Spec In Lab Marcelle Weinberg AREA ATTENDANT HEMATOLOGY ORDERA BLES Performing Organization Address [facility]/ZIP Co de Phone Number [facility] [place] [address] * CRP, acute inflammation (09/29/2022 12:09 PM EST) C-Reactive Protein <3.0 <=4.9 mg/L [facility] Blood 09/29/2022 12:0 9 PM EST 09/29/2022 12:15 PM EST Narrative Resulting Agency Comment Spec In Lab Marcelle Weinberg AREA ATTENDANT CHEMISTRY ORDERAB LES Performing Organization Address [facility] Co de Phone Number [facility] [place] [address] * Creatinine (09/29/2022 12:09 PM EST) Creatinine 1.10 0.80 - 1.50 mg/dL [facility] Est Glomerular Filtration Rate 70 >=60 mL/min/1. 73 m?? [facility] [...] Agency Comment Spec In Lab Marcelle Dunnjeovannyjania AREA ATTENDANT CHEMISTRY ORDERAB LES [facility] [place] [address] documented in this encounter Visit Diagnoses Diagnosis Left sided colitis without complications Left sided ulcerative (chronic) colitis Other ulcerative colitis with rectal bleeding documented in this encounter Care Teams Candy Puller Relationship Specialty Start Date End Date Deacon Watters APRN [address] [place] [address] PCP - General Family Medicine 02/17/22 documented as of this encounter
--- OUTSIDE RECORDS SUMMARY | 2024-07-22 13:06 | XMS_ITS | Encounter Summary ---
Author Organization [facility] [place] [address] Care Team Providers Care Planner Scheduler Name Role Phone Deacon Watters APRN Primary Care Provider +1- [phone] Encounter Details Date Type Department Care Team (Late st Contact Info) Description 11/20/2022 Telephone [place] [address] Jarret Roa RN Social History Tobacco Use [...] 9:00 AM EDT Office Visit [place] [address] Dion Barlow MD [facility] [place] [address] 09/01/2024 9:40 AM EDT Office Visit Cardiology at [address] [place] [address] Franky Shaver MD [facility] [place] [address] 09/01/2024 11:20 AM EDT Office Visit Dermatology at [facility] [address] [place] [address] Gómez Mercer MD [facility] [place] [address] 09/21/2024 2:45 PM EDT Office Visit [facility] [place] [address] Trung Hoyos MD [facility] [place] [address] documented as of this encounter Visit Diagnoses Not on filedocumented in this encounter Care Teams Planner Scheduler Relationship Specialty Start Date End Date Deacon Watters APRN [address] [place] [address] [address] [place] [address] PCP - General Family Medicine 02/17/22 documented as of this encounter
--- OUTSIDE RECORDS SUMMARY | 2024-07-22 13:06 | XMS_ITS | Encounter Summary ---
Author Organization [facility] Address [facility] [place] [address] Care Team Providers Care Assembly Detailer Name Role Phone Deacon Watters APRN Primary Care Provider +1- [phone] Reason for Referral * Consultation (Routine) - Closed Specialty Diagnoses / Procedures Referred By Perri t Referred To Contact Dermatology Diagnoses Basal cell carcinoma (BCC), unspecified site Becca Villegas APRN [address] [place] [address] [place] [address] Kingsley Finn MD [facility] DR [place] [address] Referral ID Status Reason Start Date Expiration Date V isits Requested Visits Authorized [id number] Closed Consult, Test & Treat PCP Updated and/or Approved 01/04/2024 01/03/2025 1 1 Encounter Details Date Type Department Care Team (Late st Contact Info) Description 01/04/2024 Transcribe Orders eDH Incoming Referrals [phone] Becca Villegas [address] [place], [place] [id number] Basal cell carcinoma (BCC), unspecified site (Primary [...] AM EDT Office Visit [place] [address] Dion Barlow MD [facility] [address] 09/01/2024 9:40 AM EDT Office Visit Cardiology at [address] [phone] Franky Shaver MD [facility] [place] [address] 09/01/2024 11:20 AM EDT Office Visit Dermatology at [address] [place] [address] Gómez Mercer MD [facility] DR [place] [address] 09/21/2024 2:45 PM EDT Office Visit [facility] [place] [address] Trung Hoyos MD [facility] [place] [address] Scheduled Referrals Name Type Priority Associated Diagnoses Orde r Schedule Referral to Dermatology Outpatient Referral Routine Basal cell carcinoma (BCC), unspecified site Ordered: 01/04/2024 documented as of this encounter Visit Diagnoses Diagnosis Basal cell carcinoma (BCC), unspecified site- Primary documented in this encounter Care Teams Assembly Detailer Relationship Specialty Start Date End Date Deacon Watters, JAZMINE [address] [place] [address] PCP - General Family Medicine 02/17/22 documented as of this encounter
--- OUTSIDE RECORDS SUMMARY | 2024-07-22 13:06 | XMS_ITS | Encounter Summary ---
Author Organization [facility] Address [facility] [place] [address] Care Team Providers Care Oil Well Service Operator Helper Name Role Phone DuongVeliakip Wells APRN Primary Care Provider +1- [phone] Encounter Details Date Type Department Care Team (Late st Contact Info) Description 11/04/2022 Orders Only [place] [address] Dianna Shen, RN Other ulcerative colitis with [...] AM EDT Office Visit [place] [address] Dion Barlow MD [facility] [place] [address] 09/01/2024 9:40 AM EDT Office Visit Cardiology at [address] [address] Franky Shaver MD [facility] [place] [address] 09/01/2024 11:20 AM EDT Office Visit Dermatology at [facility] [address] [place] [address] Gómez Mercer MD [facility] DR EDDIE [place] [address] 09/21/2024 2:45 PM EDT Office Visit Pain and Spine Center at [facility] [place] [address] Trung Hoyos MD [facility] [place] [address] documented as of this encounter Visit Diagnoses Diagnosis Other ulcerative colitis with rectal bleeding Left sided colitis without complications Left sided ulcerative (chronic) colitis Diarrhea, unspecified type documented in this encounter Care Teams Oil Well Service Operator Helper Relationship Specialty Start Date End Date Deacon Watters APRN [address] [place] [address] PCP - General Family Medicine 02/17/22 documented as of this encounter
--- OUTSIDE RECORDS SUMMARY | 2024-07-22 13:06 | XMS_ITS | Encounter Summary ---
Author Organization [facility] Address [facility] [place] [address] Care Team Providers Care Check Writer Name Role Phone Duong Deacon Wells APRN Primary Care Provider +1- [phone] Encounter Details Date Type Department Care Team (Late st Contact Info) Description 01/20/2024 10:15 AM EST - 01/20/2024 11:00 AM EST Surgery [place] [address] [facility] [place] [address] COLONOSCOPY FLEXIBLE, WITH BX (WRVU 3.56) Social [...] occurs, please contact your Doctor. Please call [phone] before 8pm Mon-Fri with problems, questions or concerns. If you call after 8pm or on weekends, call the Hospital at [phone] and ask to speak to the Road Freight Brake Coupler specialty sales consultant and the ross lift operator will contact that person for you. When should you call for help? Call [phone] anytime you think you may need emergency [...] any problems. Where can you learn more? [facility] View your After Visit Summary and more online at [email or web address] If you would like to provide [...] cost to you. Content Version: 12.2 ?? 5785-0002 [employer]. Care instructions adapted under license by [facility]. If you have questions about a medical condition or this instruction, always ask your healthcare professional. [employer] disclaims any warranty or liability for your [...] 9:00 AM EDT Office [place] [address] [facility] [place] [address] 09/01/2024 9:40 AM EDT Office Visit Cardiology at [address] [phone] [facility] [place] [address] 09/01/2024 11:20 AM EDT Office Visit Dermatology at [address] [phone] [address]ómez Mercer MD [facility] DR EDDIE [place] [address] 09/21/2024 2:45 PM EDT Office Visit [facility] [place] [address] Trung Hoyos MD [facility] [place] [address] documented as of this encounter Procedures Procedure [...] Routine 01/20/2024 10:24 AM EST Colonoscopy, Biopsy (61488) 01/20/2024 10:09 AM EST Left sided colitis without complications POCT GLUCOSE Routine 01/20/2024 10:05 AM EST POCT FINGERSTICK GLUCOSE Routine 01/20/2024 10:05 AM EST COLONOSCOPY Routine 01/20/2024 10:01 AM EST documented in this encounter Results * Specimen to Pathology (01/20/2024 10:48 AM EST) AP Specimen 01/20/2024 10:4 8 AM EST 01/20/2024 10:48 AM EST Narrative [facility] - 01/20/2024 10:48 AM EST Specimen requisition ordered. ??Separate Pathology report to follow Anthony Hamlin MD PATHOLOGY/CYTOLOGY O CEE Performing Organization Address [facility] Co de Phone Number [facility] [address] * Specimen to Pathology (01/20/2024 10:48 AM EST) AP Specimen 01/20/2024 10:4 8 AM EST 01/20/2024 10:48 AM EST Narrative [facility] - 01/20/2024 10:48 AM EST Specimen requisition ordered. ??Separate Pathology report to follow Anthony Hamlin MD PATHOLOGY/CYTOLOGY O CEE [facility] [address] * Specimen to Pathology (01/20/2024 10:48 AM EST) AP Specimen 01/20/2024 10:4 8 AM EST 01/20/2024 10:48 AM EST Narrative [facility] - 01/20/2024 10:48 AM EST Specimen requisition ordered. ??Separate Pathology report to follow Anthony Hamlin MD PATHOLOGY/CYTOLOGY O CEE Performing Organization Address City/[facility]/[place] [address] * Specimen to Pathology (01/20/2024 10:48 AM EST) AP Specimen 01/20/2024 10:4 8 AM EST 01/20/2024 10:48 AM EST Narrative [facility] - 01/20/2024 10:48 AM EST Specimen requisition ordered. ??Separate Pathology report to follow Anthony Hamlin MD PATHOLOGY/CYTOLOGY O CEE Performing Organization Address [facility] [place] [address] * Specimen to Pathology (01/20/2024 10:48 AM EST) AP Specimen 01/20/2024 10:4 8 AM EST 01/20/2024 10:48 AM EST Narrative [facility] - 01/20/2024 10:48 AM EST Specimen requisition ordered. ??Separate Pathology report to follow Anthony Hamlin MD PATHOLOGY/CYTOLOGY O CEE Performing Organization Address [facility] Co de Phone Number [facility] [address] * Specimen to Pathology (01/20/2024 10:48 AM EST) AP Specimen 01/20/2024 10:4 8 AM EST 01/20/2024 10:48 AM EST Narrative [facility] - 01/20/2024 10:48 AM EST Specimen requisition ordered. ??Separate Pathology report to follow Anthony Hamlin MD PATHOLOGY/CYTOLOGY O CEE Performing Organization Address City/[facility] [place] [address] * Surgical Pathology Report (01/20/2024 10:24 AM EST) Final Diagnosis [id number] ? Location: 4T; EA12; A The signing [...] Verified: ??01/29/2024 12:04 ??Pathologist Performed at: ??-[facility] Dept. of Pathology, [place] [address] Neon Sign Maker: Joana Soler MD, FCAP, ??CLIA Certificate: [id number] SPECIMEN(S) SUBMITTED A - right colon, biopsy [...] labeled F1. ??sns 01/29/2024 12:04 PM EST [facility] GI Biopsy 01/20/2024 10:2 [...] EST Anthony Hamlin MD PATHOLOGY/CYTOLOGY O RDERABLES [facility] [address] [facility] [place] [address] * POCT Glucose (01/20/2024 10:05 AM EST) Glucose, POC 114 65 - 199 mg/dL [facility] Comment: Supplemental ranges: <140 mg/dL before meals <180 mg/dL all other times of the day Blood 01/20/2024 10:0 5 AM EST 01/20/2024 10:05 AM EST Anthony Hamlin MD POINT OF CARE TEST O RDERABLES [facility] [address] * POCT Fingerstick Glucose (01/20/2024 10:05 AM EST) Glucose, POC 114 60 - 199 mg/dl 01/20/2024 10:0 5 AM EST Anthony Hamlin MD POINT OF CARE TEST O RDERABLES * COLONOSCOPY (01/20/2024 10:01 AM EST) COLONOSCOPY [facility] Endoscopy Procedure Date: 01/20/2024 10:01 AM ? Patient Name: Brian Rodriguez ? N: [id number] ? Date of : 1950 ? Age: 73 ? Order #: [id number] ? Instrument Name: [id number] ? Procedure: ? Colonoscopy Indications: ? Follow-up [...] ? physician, the nurse and the ? roving technician in the pre-procedure ? area in [...] 01/20/2024 10:0 1 AM EST Deacon Watters QA TEST ANALYST GENERAL SURGICAL O RDERABLES [employer] documented in [...] RN) documented in this encounter Care Teams Check Writer Relationship Specialty Start Date End Date Deacon Watters APRN [address] [place] [address] [address] [place] [address] PCP - General Family Medicine 02/17/22 documented as of this encounter
--- OUTSIDE RECORDS SUMMARY | 2024-07-22 13:06 | XMS_ITS | Encounter Summary ---
Author Organization [facility] Address [facility] [place] [address] Care Team Providers Care Alley Cleaner Name Role Phone Duong Deacon Wells APRN Primary Care Provider +1- [phone] Encounter Details Date Type Department Care Team [...] 9:00 AM EDT Office [place] [address] Dion Barlow MD [facility] [place] [address] 09/01/2024 9:40 AM EDT Office Visit Cardiology at [address] [phone] Franky Shaver MD [facility] [place] [address] 09/01/2024 11:20 AM EDT Office Visit Dermatology at [facility] [address] [place] [address] Gómez Mercer MD [facility] DR EDD[place] [address] 09/21/2024 2:45 PM EDT Office Visit [facility] [place] [address] Trung Hoyos MD [facility] [place] [address] documented as of this encounter Visit Diagnoses Not on filedocumented in this encounter Care Teams Alley Cleaner Relationship Specialty Start Date End Date Deacon Watters, JAZMINE [address] [place] [address] PCP - General Family Medicine 02/17/22 documented as of this encounter
--- OUTSIDE RECORDS SUMMARY | 2024-07-22 13:06 | XMS_ITS | Encounter Summary ---
[place] [address] Care Team Providers Care Driller And Reamer Name Role Phone Duong Deacon Wells APRN Primary Care Provider +1- [phone] Encounter Details Date Type Department Care Team (Late st Contact Info) Description 10/15/2022 Telephone [place] [address] Roselia Coronado Social History Tobacco Use Types [...] 9:00 AM EDT Office [place] [address] Dion Barlow MD [facility] [place] [address] 09/01/2024 9:40 AM EDT Office Visit Cardiology at [address] [place] [address] Franky Shaver MD [facility] [place] [address] 09/01/2024 11:20 AM EDT Office Visit Dermatology at [facility] [address] [place] [address] Gómez Mercer MD [facility] [place] [address] 09/21/2024 2:45 PM EDT Office Visit [place] [address] Trung Hoyos MD [facility] [place] [address] documented as of this encounter Visit Diagnoses Not on filedocumented in this encounter Care Teams Driller And Reamer Relationship Specialty Start Date End Date Deacon Watters, WOOL HAT FORMING MACHINE TENDER [address] [facility] [address] [place] [address] PCP - General Family Medicine 02/17/22 documented as of this encounter
--- OUTSIDE RECORDS SUMMARY | 2024-07-22 13:06 | XMS_ITS | Encounter Summary ---
[place] [address] Care Team Providers Care Infection Control Practitioner Name Role Phone Deacon Watters APRN Primary Care Provider +1- [phone] Encounter Details Date Type Department Care Team (Late st Contact Info) Description 12/07/2023 Telephone [place] [address] Estela Phillips Social History Tobacco Use Types [...] - 12/07/2023 10:47 AM EST Brian Rodriguez [id number] Diagnosis/Indication: UC surveillance Please review patient chart [...] your procedure. Who will likely be your tractor trailer driver for the procedure? *Please Verify the [...] 9:00 AM EDT Office [place] [address] Dion Barlow MD [facility] [place]STR[place] [address] 09/01/2024 9:40 AM EDT Office Visit Cardiology at [address] [phone] Franky Shaver MD [facility] [place] [address] 09/01/2024 11:20 AM EDT Office Visit Dermatology at [facility] [address] [place] [address] Gómez Mercer MD [facility] DR EDDIE SANCHEZ-[place] [address] 09/21/2024 2:45 PM EDT Office Visit [facility] [place] [address] Trung Hoyos MD [facility] PAIN [place] [address] documented as of this encounter Visit Diagnoses Not on filedocumented in this encounter Care Teams Infection Control Practitioner Relationship Specialty Start Date End Date Deacon Watters APRN [address] [place] [address] PCP - General Family Medicine 02/17/22 documented as of this encounter
--- OUTSIDE RECORDS SUMMARY | 2024-07-22 13:07 | XMS_ITS | Encounter Summary ---
[place] [address] Care Team Providers Care Title Assistant Name Role Phone Maximilian Fall MD Primary Care Provider [phone] Encounter Details Date Type Department Care Team (Late st Contact Info) Description 04/25/2019 Telephone [place] [address] Brandy Durham Social History Tobacco Use Types [...] conditions (especially heart or lung)?:asthma BMI:30.53 Prep:proclear Insurance Administrator?:yes Instructions to patient?:instructions to pt@4L/Exit~jhd documented in this encounter Plan of Treatment Upcoming Encounters Date Type Department Care Team (Late st Contact Info) Description 08/15/2024 9:00 AM EDT Office [place] [phone] Dion Barlow MD [facility] [place] [address] 09/01/2024 9:40 AM EDT Office Visit Cardiology at [address] [address] Franky Shaver MD [facility] [place] [address] 09/01/2024 11:20 AM EDT Office Visit Dermatology at [address] [place] [address] Gómez Mercer MD [facility] [place] [address] 09/21/2024 2:45 PM EDT Office Visit [facility] [place] [address] Trung Hoyos MD [facility] [place] [address] documented as of this encounter Visit Diagnoses Not on filedocumented in this encounter Care Teams Title Assistant Relationship Specialty Start Date End Date Maximilian Fall MD [address] [facility] [place] [address] PCP - General 10/01/11 02/13/21 documented as of this encounter
--- OUTSIDE RECORDS SUMMARY | 2024-07-22 13:07 | XMS_ITS | Encounter Summary ---
Author Organization [facility], Later [facility] Address [facility] [place] [address] Care Team Providers Care Retail Office Manager Name Role Phone Josue Wilkinson MD Primary Care Provider [phone] Encounter Details Date Type Department Care Team (Latest Contact Info) Description 04/29/2021 9:00 AM EDT Office [place] [address] Marcelle Weinberg, JAZMINE [facility] [place] [address] Left sided colitis without complications Social History [...] encounter Progress Notes * Marcelle Weinberg C, DRUM PRINTER - 04/29/2021 9:00 AM EDT Primary care [...] ? Colonoscopy 04/08/10 ([facility] [...] Ref Range Status ??? COLONOSCOPY 02/26/2021 Final Value:[facility] Endoscopy Procedure Date: 02/26/2021 4:21 PM Patient Name: Brian Rodriguez Date of : 1950 Age: 70 Order #: [id number] Instrument Name: [id number] Procedure: Colonoscopy Indications: High risk colon cancer [...] bowel preparation was evaluated using the BBPS (Empire Bowel Preparation Scale) with scores of: Right [...] Final ??? Surgical Pathology Report 02/26/2021 Final Value:[id number] Location: 4T; EA08; A The signing pathologist [...] MD Verified: 03/04/2021 16:33 Pathologist Performed at: -[facility] Dept. of Pathology, [place], [place] SPECIMEN(S) SUBMITTED A - right colon [...] Disease Center Section of Gastroenterology [place] [address] documented in this encounter Plan of Treatment Upcoming Encounters Date Type Department Care Team (Late st Contact Info) Description 08/15/2024 9:00 AM EDT Office [place] [address] Dion Barlow MD [facility] [place] [address] 09/01/2024 9:40 AM EDT Office Visit Cardiology at [address] [place] [address] Franky Shaver MD [facility] [place] [address] 09/01/2024 11:20 AM EDT Office Visit Dermatology at [facility] [address] [place] [address] Gómez Mercer MD [facility] DR EDD[place] [address] 09/21/2024 2:45 PM EDT Office Visit Pain and Spine Center at [facility] [place], [facility] [place] [address] Trung Hoyos MD [facility] [place] [address] documented as of this encounter Procedures Procedure [...] 10:22 AM EDT) Neutrophil % 65.3 % [facility] Neutrophil Absolute 3.34 1.70 - 6.10 x10(3)/ L [facility] Lymph % 23.0 % [facility] Lymphocytes Abs 1.2 0.9 - 3.2 x10(3)/ L [facility] Monocyte % 6.6 % [facility] Monocyte Abs 0.3 0.3 - 0.9 x10(3)/mc L [facility] Eos % 2.9 % [facility] Eosinophils Abs 0.2 0.0 - 0.4 x10(3)/[facility] Basophil % 1.0 % [facility] Baso Absolute 0.0 0.0 - 0.1 x10(3)/[facility] Immature Gran % 1.20 % [facility] Comment: Immature granulocytes(IG's)percentage and absolute count will include metamyelocytes, myelocytes, and promyelocytes. Blood smears from CBCs yielding IG's will be scanned manually for concordance. If this scan disagrees with the automated IG or if promyelocytes are noted, a manual differential will be performed. Immature Gran Absolute 0.06(H) 0.00 - 0.04 x10(3)/ L [facility] Blood 04/29/2021 10:2 2 AM EDT 04/29/2021 10:29 AM EDT Narrative Resulting Agency Comment Spec In Lab Marcelle Weinberg DRUM PRINTER HEMATOLOGY ORDERA BLES [facility] [place] [address] * (ABNORMAL) Hemogram (04/29/2021 10:22 AM EDT) White Blood Cell 5.1 4.0 - 9.5 x10(3)/ L [facility] Red Blood Cell 3.78(L) 4.58 - 5.54 x10(6)/mc L [facility] Hemoglobin 12.4(L) 13.7 - 16.5 gm/dL [facility] Hematocrit 37.8(L) 40.5 - 48.5 % [facility] Mean Cell Volume 100.0(H) 82.9 - 93.1 fL [facility] Mean Cell Hemoglobin 32.8(H) 27.5 - 32.1 pg [facility] Mean Cell Hemoglobin Concentration 32.8 32.0 - 35.7 gm/dL [facility] Platelet 196 145 - 357 x10(3)/mc L [facility] RDW Standard Deviation 45.1(H) 36.0 - 45.0 [facility] RDW coefficient of variation 12.2 11.4 - 13.8 % [facility] Mean Platelet Volume 11.5 7.6 - 12.9 [facility] NRBC% auto 0.0 % [facility] NRBC Absolute 0.000 0.000 - 0.000 x10(3)/mc L [facility] Blood 04/29/2021 10:2 2 AM EDT 04/29/2021 10:29 AM EDT Narrative Resulting Agency Comment Spec In Lab Marcelle Weinberg APRN HEMATOLOGY ORDERA BLES [facility] [place] [address] * CRP, acute inflammation (04/29/2021 10:22 AM EDT) C-Reactive Protein <3.0 <=4.9 mg/L [facility] Blood 04/29/2021 10:2 2 AM EDT 04/29/2021 10:29 AM EDT Narrative Resulting Agency Comment Spec In Lab Marcelle Weinberg DRUM PRINTER CHEMISTRY ORDERAB LES Performing Organization Address [facility]/ZIP Co de Phone Number [facility] [place] [address] * Sedimentation rate (04/29/2021 10:22 AM EDT) Sedimentation Rate Automated 32 3 - 46 mm/hr [facility] [...] HEMATOLOGY ORDERA BLES Performing Organization Address [facility] Co de Phone Number [facility] [place] [address] * (ABNORMAL) Comprehensive metabolic panel (non-fasting) (04/29/2021 10:22 AM EDT) Glucose 130 65 - 199 mg/dL [facility] Comment:Diabetes: >=200 mg/d L plus symptoms Blood Urea Nitrogen 21(H) 10 - 20 mg/dL [facility] Creatinine 1.14 0.80 - 1.50 mg/dL [facility] Sodium 142 135 - 145 mmol/L [facility] Potassium 4.4 3.5 - 5.0 mmol/L [facility] [...] mmol/L [facility] Anion Gap 10 5 - 15 mmol/L [facility] Calcium 10.0 8.5 - 10.5 mg/dL [facility] Protein, Total 8.0 6.1 - 8.0 gm/dL [facility] Albumin 4.4 3.2 - 5.2 gm/dL [facility] Aspartate Aminotransferase 14 0 - 39 unit/L [facility] Alanine Aminotransferase 16 0 - 55 unit/L [facility] Alkaline Phosphatase 68 40 - 130 unit/L [facility] Bilirubin, Total 0.3 0.2 - 1.3 mg/dL [facility] Est Glomerular Filtration Rate 64 >=60 mL/min/1. 73 m?? [facility] Comment: This patient? s estimated [...] Agency Comment Spec In Lab Marcelle Weinberg DRUM PRINTER CHEMISTRY ORDERAB LES Performing Organization Address City/State/[facility] Co de Phone Number [facility] [address] documented in this encounter Visit Diagnoses Diagnosis Left sided colitis without complications Left sided ulcerative (chronic) colitis documented in this encounter Care Teams Retail Office Manager Relationship Specialty Start Date End Date Josue Wilkinson MD PCP - General General Internal Medicine 02/14/21 9/ documented as of this encounter
--- OUTSIDE RECORDS SUMMARY | 2024-07-22 13:07 | XMS_ITS | Encounter Summary ---
Author Organization [facility] Address [facility] [place] [address] Care Team Providers Care Flexible Machining System Machinist Name Role Phone Maximilian Fall MD Primary Care Provider [phone] Encounter Details Date Type Department Care Team (Late st Contact Info) Description 02/23/2019 Telephone [place] [address] Suzanne Guillermo Social History Tobacco [...] 9:00 AM EDT Office [place] [address] Dion Barlow MD [facility] [place] [address] 09/01/2024 9:40 AM EDT Office Visit Cardiology at [address] [place] [address] Franky Shaver MD [facility] [place] [address] 09/01/2024 11:20 AM EDT Office Visit Dermatology at [facility] [address] [place] [address] Gómez Mercer MD [facility] [place] [address] 09/21/2024 2:45 PM EDT Office Visit Pain and Spine Center at [facility], [place], [facility] [place] [address] Trung Hoyos MD [facility] [place] [address] documented as of this encounter Visit Diagnoses Not on filedocumented in this encounter Care Teams Flexible Machining System Machinist Relationship Specialty Start Date End Date Maximilian Fall MD [address] [facility] 1 [place] [address] PCP - General 10/01/11 02/13/21 documented as of this encounter
--- OUTSIDE RECORDS SUMMARY | 2024-07-22 13:07 | XMS_ITS | Encounter Summary ---
[place] [address] Care Team Providers Care Civil Cadd Technician Name Role Phone Maximilian Fall MD Primary Care Provider [phone] Encounter Details Date Type Department Care Team (Late st Contact Info) Description 01/17/2021 Telephone [place] [address] César Garcia Social History Tobacco Use Types [...] - 01/17/2021 1:33 PM EST Brian Rodriguez [id number] Diagnosis/Indication: a repeat colonoscopy in two years [...] to patient: You must have a responsible alliance party [...] 9:00 AM EDT Office [place] [address] Dion Barlow MD [facility] [place] [address] 09/01/2024 9:40 AM EDT Office Visit Cardiology at [address] [phone] Franky Shaver MD [facility] [place] [address] 09/01/2024 11:20 AM EDT Office Visit Dermatology at [place] [address] [place] [address] Gómez Mercer MD [facility] DR EDDIE [place] [address] 09/21/2024 2:45 PM EDT Office Visit Pain and Spine Center at [facility] [place] [address] Trung Hoyos MD [facility] [place] [address] documented as of this encounter Visit Diagnoses Not on filedocumented in this encounter Care Teams Civil Cadd Technician Relationship Specialty Start Date End Date Maximilian Fall MD [address] [place] [address] PCP - General 10/01/11 02/13/21 documented as of this encounter
--- OUTSIDE RECORDS SUMMARY | 2024-07-22 13:07 | XMS_ITS | Encounter Summary ---
[place] [address] Care Team Providers Care Station Mechanic Name Role Phone Deacon Watters APRN Primary Care Provider [phone] Encounter Details Date Type Department Care Team (Late st Contact Info) Description 02/26/2022 Telephone [place] [address] Erika Armas Social History Tobacco Use Types [...] - 02/26/2022 1:04 PM EDT Brian Rodriguez [id number] Diagnosis/Indication: UC, restage disease and for surveillance [...] EDT Office [place] [address] Dion Barlow MD [facility] [place] [address] 09/01/2024 9:40 AM EDT Office Visit Cardiology at [address] [phone] Franky Shaver MD [facility] [place] [address] 09/01/2024 11:20 AM EDT Office Visit Dermatology at [facility] [address] [place] [address] Gómez Mercer MD [facility] DR EDDIE [place] [address] 09/21/2024 2:45 PM EDT Office Visit Pain and Spine Center at [facility] [place] [address] Trung Hoyos MD [facility] [place] [address] documented as of this encounter Visit Diagnoses Not on filedocumented in this encounter Care Teams Station Mechanic Relationship Specialty Start Date End Date Deacon Watters APRN [address] [place] [address] PCP - General Family Medicine 02/17/22 documented as of this encounter
--- OUTSIDE RECORDS SUMMARY | 2024-07-22 13:07 | XMS_ITS | Encounter Summary ---
Author Organization [facility] [place] [address] Care Team Providers Care Data Designer Name Role Phone Maximilian Fall MD Primary Care Provider [phone] Encounter Details Date Type Department Care Team (Late st Contact Info) Description 03/01/2020 Telephone [place] [address] Suzanne Guillermo Social History Tobacco Use Types [...] 9:00 AM EDT Office [place] [address] Dion Barlow MD [facility] DR GASTROENTEROLOGY [place], [place] [address] 09/01/2024 9:40 AM EDT Office Visit Cardiology at [address] [address] Franky Shaver MD [facility] [address] 09/01/2024 11:20 AM EDT Office Visit Dermatology at [facility] [address] [place] [address] Gómez Mercer MD [facility] [place] [address] 09/21/2024 2:45 PM EDT Office Visit Pain and Spine Center at [facility] [place] [address] Trung Hoyos MD [facility] [place] [address] documented as of this encounter Visit Diagnoses Not on filedocumented in this encounter Care Teams Data Designer Relationship Specialty Start Date End Date Maximilian Fall MD [address] [facility] 1 [place] [address] PCP - General 10/01/11 02/13/21 documented as of this encounter
--- OUTSIDE RECORDS SUMMARY | 2024-07-22 13:07 | XMS_ITS | Encounter Summary ---
Author Organization [facility] [place] [address] Care Team Providers Care Forming Machine Adjuster Name Role Phone Maximilian Fall MD Primary Care Provider [phone] Reason for Visit * Reason Onset Date Comments Medication Refill 02/16/2020 Encounter Details Date Type Department Care Team (Late st Contact Info) Description 02/16/2020 Refill [place] [address] Bethany Trivedi, RN Left sided colitis without [...] 9:00 AM EDT Office Visit [place] [address] Dion Barlow MD [facility] [place] [address] 09/01/2024 9:40 AM EDT Office Visit Cardiology at [address] [place] [address] Franky Shaver MD [facility] [place] [address] 09/01/2024 11:20 AM EDT Office Visit Dermatology at [address] [place] [address] Gómez Mercer MD [facility] DR [place] [address] 09/21/2024 2:45 PM EDT Office Visit [facility] [place] [address] Trung Hoyos MD [facility] [place] [address] documented as of this encounter Visit Diagnoses Diagnosis Left sided colitis without complications Left sided ulcerative (chronic) colitis documented in this encounter Care Teams Forming Machine Adjuster Relationship Specialty Start Date End Date Maximilian Fall MD [address] [place] [address] PCP - General 10/01/11 02/13/21 documented as of this encounter
--- OUTSIDE RECORDS SUMMARY | 2024-07-22 13:07 | XMS_ITS | Encounter Summary ---
[place] [address] Care Team Providers Care Robot Programmer Name Role Phone Deacon Watters APRN Primary Care Provider [phone] Encounter Details Date Type Department Care Team (Latest Contact Info) Description 02/19/2022 10:52 AM EDT - 02/19/2022 11:59 PM EDT Hospital [place] [address] Other ulcerative colitis with rectal bleeding Discharge [...] 9:00 AM EDT Office Visit [place] [address] Dion Barlow MD [facility] [place] [address] 09/01/2024 9:40 AM EDT Office Visit Cardiology at [address] [place] [address] Franky Shaver MD [facility] [place] [address] 09/01/2024 11:20 AM EDT Office Visit Dermatology at [facility] [address] [place] [address] Gómez Mercer MD [facility] DR [place] [address] 09/21/2024 2:45 PM EDT Office Visit Pain [place] [address] Trung Hoyos MD [facility] [place] [address] documented as of this encounter Procedures Procedure [...] Comment Spec In Lab Monalisa C Dragnev GASOLINE FINISHER BODY FLUIDS AND S TOOLS ORDERABLES Performing Organization Address [facility] Co de Phone Number [facility] [place] [place] [address] documented in this encounter Visit Diagnoses Diagnosis Other ulcerative colitis with rectal bleeding documented in this encounter Additional Health Concerns Infection Onset Date Last Indicated Resolved Time Rule Out C. difficile 02/19/2022 02/19/20222021 11:33 AM EDT documented as of this encounter Care Teams Robot Programmer Relationship Specialty Start Date End Date Deacon Watters APRN [address] [place] [address] PCP - General Family Medicine 02/17/22 documented as of this encounter
--- OUTSIDE RECORDS SUMMARY | 2024-07-22 13:07 | XMS_ITS | Encounter Summary ---
Author Organization [facility] Address [facility] [place] [address] Care Team Providers Care Clinical Team Lead Name Role Phone Maximilian Fall MD Primary Care Provider [phone] Encounter Details Date Type Department Care Team (Latest Contact Info) Description 09/12/2019 3:40 PM EDT Office Visit [place] [address] Dion Barlow MD [facility] [place] [address] Left sided colitis without complications Social History [...] ?? Colonoscopy 04/08/10 (Dr. Gomes [facility]) [...] Final ??? UPPER GI ENDOSCOPY 04/28/2019 Final Value:[facility] Endoscopy Procedure Date: 04/28/2019 4:39 PM Patient Name: Brian Rodriguez Date of : 1950 Age: 68 Order #: [id number] Instrument Name: [id number] Procedure: Upper GI endoscopy Indications: Abnormal CT of the GI tract (duodenal thickening) Providers: Iza Coates MD, Nohemi Ball RN, Jonathan Ko, Feed Mill Tender Referring MD: Maximilian Fall MD Requesting Provider: [...] PM ??? Surgical Pathology Report 04/28/2019 Final Value:[id number] Location: 4T; [facility]; A The signing pathologist has (i) examined the relevant preparation(s) for the specimen(s) and (ii) rendered or confirmed the diagnosis(es). . Surgical Pathology DIAGNOSIS A - Random duodenum, biopsy: Duodenal mucosa within normal limits, including preserved villous architecture. B - Fundic gland, polypectomy: Gastric fundic gland polyp. Electronically signed by: Joana Soler MD Verified: 05/02/2019 Pathologist Performed at: -[facility] Dept. of Pathology, [place], [place] CLINICAL INFORMATION Specimen Submitted: A - [...] patient. Anthony Hamlin [place] [address] ATTENDING ADDENDUM I interviewed and examined Brian [...] sulfasalazine. 15 min of this 20 min [id number] visit was spent counseling the patient in the issues outlined above. Davina Barlow MD Container Washer Machinebusiness analyst consultant Co-Director, [facility] Section of Gastroenterology [place] [address] documented in this encounter Plan of Treatment Upcoming Encounters Date Type Department Care Team (Late st Contact Info) Description 08/15/2024 9:00 AM EDT Office Visit Gastroenterology at [place] [phone] Dion Barlow MD [facility] [place] [address] 09/01/2024 9:40 AM EDT Office Visit Cardiology at [address] [place] [address] Franky Shaver MD [facility] [place] [address] 09/01/2024 11:20 AM EDT Office Visit Dermatology at [place] [address] [place] [address] Gómez Mercer MD [facility] [address] 09/21/2024 2:45 PM EDT Office Visit Pain [place] [address] Trung Hoyos MD [facility] [place] [address] documented as of this encounter Visit Diagnoses Diagnosis Left sided colitis without complications Left sided ulcerative (chronic) colitis documented in this encounter Care Teams Clinical Team Lead Relationship Specialty Start Date End Date Maximilian Fall MD [address] [facility] 1 [place] [address] PCP - General 10/01/11 02/13/21 documented as of this encounter
--- OUTSIDE RECORDS SUMMARY | 2024-07-22 13:07 | XMS_ITS | Encounter Summary ---
Author Organization [facility] [place] [address] Care Team Providers Care Electrical Experimental Mechanic Name Role Phone Maximilian Fall MD Primary Care Provider [phone] Reason for Visit * Reason Onset Date Comments Reminder Appointment 03/20/2020 Encounter Details Date Type Department Care Team (Late st Contact Info) Description 03/20/2020 Telephone [place] [address] Kinjal Durham CMA GASTROENTEROLOGY DEPT Reminder Appointment [...] 9:00 AM EDT Office [place] [address] Dion Barlow MD [facility] [place] [address] 09/01/2024 9:40 AM EDT Office Visit Cardiology at [address] [place] [address] Franky Shaver MD [facility] [place] [place] [address] 09/01/2024 11:20 AM EDT Office Visit Dermatology at [facility] [address] [place] [address] Gómez Mercer MD [facility] [place] [address] 09/21/2024 2:45 PM EDT Office Visit [place] [address] Trung Hoyos MD [facility] [place] [address] documented as of this encounter Visit Diagnoses Not on filedocumented in this encounter Care Teams Electrical Experimental Mechanic Relationship Specialty Start Date End Date Maximilian Fall MD [address] [facility] 1 [place] [address] PCP - General 10/01/11 02/13/21 documented as of this encounter
--- OUTSIDE RECORDS SUMMARY | 2024-07-22 13:07 | XMS_ITS | Encounter Summary ---
Author Organization [facility] Address [facility] [place] [address] Care Team Providers Care Retail Key Holder Name Role Phone Maximilian Fall MD Primary Care Provider [phone] Encounter Details Date Type Department Care Team (Latest Contact Info) Description 05/09/2019 10:20 AM EDT Office Visit [place] [address] Dion Barlow MD [facility] [place] [address] Left sided colitis without complications Social History [...] Overview Note:? Colonoscopy 04/08/10 (Dr. Gomes [facility]) - inflammation only within the rectum and [...] needed 20 min of this 25 min [id number] visit was spent counseling the patient in the issues outlined above. Davina Barlow MD Band Salvagerfurnace builder Co-Director, [facility] Section of Gastroenterology [place] [address] documented in this encounter Plan of Treatment Upcoming Encounters Date Type Department Care Team (Late st Contact Info) Description 08/15/2024 9:00 AM EDT Office Visit G[place] [address] Dion Barlow MD [facility] [place] [address] 09/01/2024 9:40 AM EDT Office Visit Cardiology at [address] [place] [address] Franky Shaver MD [facility] [place] [address] 09/01/2024 11:20 AM EDT Office Visit Dermatology at [facility] [address] [place] [address] Gómez Mercer MD [facility] [place] [address] 09/21/2024 2:45 PM EDT Office Visit Pain and Spine Center at [facility] [place] [address] Trung Hoyos MD [facility] [place] [address] documented as of this encounter Visit Diagnoses Diagnosis Left sided colitis without complications Left sided ulcerative (chronic) colitis documented in this encounter Care Teams Retail Key Holder Relationship Specialty Start Date End Date Maximilian Fall MD [address] [facility] 1 [place] [address] PCP - General 10/01/11 02/13/21 documented as of this encounter
--- OUTSIDE RECORDS SUMMARY | 2024-07-22 13:07 | XMS_ITS | Encounter Summary ---
Author Organization [facility] Address [facility] [place] [address] Care Team Providers Care Upper Lining Cementer Name Role Phone Josue Wilkinson MD Primary Care Provider [phone] Encounter Details Date Type Department Care Team (Latest Contact Info) Description 02/26/2021 2:52 PM EDT - 02/26/2021 6:22 PM EDT Hospital Encounter [place] [address] Dion Barlow MD [facility] [place] [address] Discharge Disposition: Home Social History Tobacco Use [...] to be checked. Thursday-Thursday Same Day Endo [phone]-8p Otherwise contact [phone] and ask to speak to the microbiology quality control technician continuous improvement coordinator Follow up care is a le part [...] EDT Office [place] [address] Dion Barlow MD [facility] [place] [place] [address] 09/01/2024 9:40 AM EDT Office Visit Cardiology at [address] [address] Franky Shaver MD [facility] [place] [address] 09/01/2024 11:20 AM EDT Office Visit Dermatology at [facility] [address] [place] [address] Gómez Mercer MD [facility] [address] 09/21/2024 2:45 PM EDT Office Visit [facility] [place] [address] Trung Hoyos MD [facility] [place] [address] documented as of this encounter Procedures Procedure Name Priority Date/Time Associated Diagnosis Comments POCT GLUCOSE Routine 02/26/2021 5:51 PM EDT SPECIMEN TO PATHOLOGY Routine 02/26/2021 5:10 PM EDT SPECIMEN TO PATHOLOGY Routine 02/26/2021 5:10 PM EDT SPECIMEN TO PATHOLOGY Routine 02/26/2021 5:10 PM EDT SURGICAL PATHOLOGY REPORT Routine 02/26/2021 4:53 PM EDT Colonoscopy, Remv [address] ([id number]) 02/26/2021 4:28 PM EDT a repeat colonoscopy in two years from 02/22/19 COLONOSCOPY Routine 02/26/2021 4:21 PM EDT POCT GLUCOSE Routine 02/26/2021 3:42 PM EDT documented in this encounter Results * POCT Glucose (02/26/2021 5:51 PM EDT) Glucose, POC 160 65 - 199 mg/dL [facility] Comment: Supplemental ranges: <140 mg/dL before meals <180 mg/dL all other times of the day Blood specimen (specimen) 02/26/2021 5:51 PM EDT 02/26/2021 12:00 PM EDT L Karthik Barlow MD POINT OF CARE TEST O CEE Performing Organization Address [facility] Co de Phone Number [facility] [place] [address] * Specimen to Pathology (02/26/2021 5:10 PM EDT) AP Specimen 02/26/2021 5:10 PM EDT 02/26/2021 5:10 PM EDT Narrative [facility] - 02/26/2021 5:10 PM EDT Specimen requisition ordered. ??Separate Pathology report to follow L Karthik Barlow MD PATHOLOGY/CYTOLOGY O CEE Performing Organization Address City/[facility]/ZIP Co de Phone Number [facility] [place] [address] * Specimen to Pathology (02/26/2021 5:10 PM EDT) AP Specimen 02/26/2021 5:10 PM EDT 02/26/2021 5:10 PM EDT Narrative [facility] - 02/26/2021 5:10 PM EDT Specimen requisition ordered. ??Separate Pathology report to follow L Karthik Barlow MD PATHOLOGY/CYTOLOGY O CEE [facility] [place] [address] * Specimen to Pathology (02/26/2021 5:10 PM EDT) AP Specimen 02/26/2021 5:10 PM EDT 02/26/2021 5:10 PM EDT Narrative [facility] - 02/26/2021 5:10 PM EDT Specimen requisition ordered. ??Separate Pathology report to follow L Karthik Barlow MD PATHOLOGY/CYTOLOGY O RDERABLES Performing Organization Address [facility] Co de Phone Number [facility] [place] [address] * Surgical Pathology Report (02/26/2021 4:53 PM EDT) Final Diagnosis [id number] ? Location: 4T; 08; A The signing [...] MD Verified: ??03/04/2021 16:33 ??Pathologist Performed at: ??-[facility] Dept. of Pathology, [place], [place] SPECIMEN(S) SUBMITTED A - right colon [...] labeled C1. ??shb 03/04/2021 4:33 PM EDT [facility] GI Biopsy 02/26/2021 4:53 PM EDT 02/26/2021 4:53 PM EDT GI Biopsy 02/26/2021 4:53 PM EDT 02/26/2021 4:53 PM EDT GI Biopsy 02/26/2021 4:53 PM EDT 02/26/2021 4:53 PM EDT L Karthik Barlow MD PATHOLOGY/CYTOLOGY O DANIELERAOMAR [facility] [place] [address] * COLONOSCOPY (02/26/2021 4:21 PM EDT) COLONOSCOPY [facility] ___ Procedure Date: 02/26/2021 4:21 PM ? Patient Name: Brian Rodriguez ? Date of : 1950 ? Age: 70 ? Order #: [id number] ? Instrument Name: [id number] ? ___ Procedure: ? Colonoscopy Indications: ? [...] preparation was evaluated using ? the BBPS ([place] Bowel Preparation ? Scale) with scores of: [...] Glucose, POC 128 65 - 199 mg/dL [facility] Comment: Supplemental ranges: <140 mg/dL before meals <180 mg/dL all other times of the day Blood specimen (specimen) 02/26/2021 3:42 PM EDT 02/26/2021 12:00 PM EDT Dion Barlow MD POINT OF CARE TEST O RDERABLES [facility] [place] [address] documented in this encounter Visit Diagnoses Not [...] RN) documented in this encounter Care Teams Upper Lining Cementer Relationship Specialty Start Date End Date Josue Wilkinson MD PCP - General General Internal Medicine 02/14/2107/26 documented as of this encounter
--- OUTSIDE RECORDS SUMMARY | 2024-07-22 13:07 | XMS_ITS | Encounter Summary ---
Author Organization [facility] Address [facility] [place] [address] Care Team Providers Care Carbon Capture Power Plant Manager Name Role Phone Josue Wilkinson MD Primary Care Provider [phone] Encounter Details Date Type Department Care Team (Late st Contact Info) Description 04/16/2021 Telephone [place] [address] Mona Cherry Social History Tobacco Use Types [...] AM EDT Office Visit [place] [address] Dion Barlow MD [facility] [place] [address] 09/01/2024 9:40 AM EDT Office Visit Cardiology at [address] [phone] Franky Shaver MD [facility] [place] [address] 09/01/2024 11:20 AM EDT Office Visit Dermatology at [facility] [address] [place] [address] Gómez Mercer MD [facility] [place] [address] 09/21/2024 2:45 PM EDT Office Visit Pain and Spine Center at [facility] [place] [address] Trung Hoyos MD [facility] [place] [address] documented as of this encounter Visit Diagnoses Not on filedocumented in this encounter Care Teams Carbon Capture Power Plant Manager Relationship Specialty Start Date End Date Josue Wilkinson MD PCP - General General Internal Medicine 02/14/21 9/3 documented as of this encounter
--- OUTSIDE RECORDS SUMMARY | 2024-07-22 13:07 | XMS_ITS | Encounter Summary ---
Author Organization [facility] Address [facility] [place] [address] Care Team Providers Care Slice Plug Cutter Operator Name Role Phone Josue Wilkinson MD Primary Care Provider [phone] Encounter Details Date Type Department Care Team (Late st Contact Info) Description 02/26/2021 4:00 PM EDT - 02/26/2021 5:00 PM EDT [place] [address] Dion Barlow MD [facility] [place] [address] COLONOSCOPY, POLYPECTOMY, REMOVAL LESION BY SNARE (WRVU [...] to be checked. Thursday-Thursday Same Day Endo [phone]-8p Otherwise contact [phone] and ask to speak to the bird raiser manager personal Follow up care is a le part [...] 9:00 AM EDT Office [place] [address] Dion Barlow MD [facility] [place] [address] 09/01/2024 9:40 AM EDT Office Visit Cardiology at [address] [place] [address] Franky Shaver MD [facility] [place] [address] 09/01/2024 11:20 AM EDT Office Visit Dermatology at [facility] [address] [place] [address] Gómez Mercer MD [facility] [place] [address] 09/21/2024 2:45 PM EDT Office Visit [place] [address] Trung Hoyos MD [facility] [place] [address] documented as of this encounter Procedures Procedure Name Priority Date/Time Associated Diagnosis Comments POCT GLUCOSE Routine 02/26/2021 5:51 PM EDT SPECIMEN TO PATHOLOGY Routine 02/26/2021 5:10 PM EDT SPECIMEN TO PATHOLOGY Routine 02/26/2021 5:10 PM EDT SPECIMEN TO PATHOLOGY Routine 02/26/2021 5:10 PM EDT SURGICAL PATHOLOGY REPORT Routine 02/26/2021 4:53 PM EDT Colonoscopy, Remv Lesmary kay, Snare ([id number]) 02/26/2021 4:28 PM EDT a repeat colonoscopy [...] TEST O CEE Performing Organization Address [facility]/ZIP Co de Phone Number [facility] [place] [address] * Specimen to Pathology (02/26/2021 5:10 PM EDT) AP Specimen 02/26/2021 5:10 PM EDT 02/26/2021 5:10 PM EDT Narrative [facility] - 02/26/2021 5:10 PM EDT Specimen requisition ordered. ??Separate Pathology report to follow L Karthik Barlow MD PATHOLOGY/CYTOLOGY O CEE Performing Organization Address City/[facility]/ZIP Co de Phone Number [facility] [place] [address] * Specimen to Pathology (02/26/2021 5:10 PM EDT) AP Specimen 02/26/2021 5:10 PM EDT 02/26/2021 5:10 PM EDT Narrative [facility] - 02/26/2021 5:10 PM EDT Specimen requisition ordered. ??Separate Pathology report to follow L Karthik Barlow MD PATHOLOGY/CYTOLOGY O CEE Performing Organization Address City/[facility]/ZIP Co de Phone Number [facility] [place] [address] * Specimen to Pathology (02/26/2021 5:10 PM EDT) AP Specimen 02/26/2021 5:10 PM EDT 02/26/2021 5:10 PM EDT Narrative [facility] - 02/26/2021 5:10 PM EDT Specimen requisition ordered. ??Separate Pathology report to follow L Karthik Barlow MD PATHOLOGY/CYTOLOGY O CEE Performing Organization Address [facility] Co de Phone Number [facility] [place] [address] * Surgical Pathology Report (02/26/2021 4:53 PM EDT) Final Diagnosis [id number] ? Location: 4T; EA08; A The signing [...] MD Verified: ??03/04/2021 16:33 ??Pathologist Performed at: ??-[facility] Dept. of Pathology, [place], [place] SPECIMEN(S) SUBMITTED A - right colon [...] O RDERABLES [facility] [place] [address] * COLONOSCOPY (02/26/2021 4:21 PM EDT) COLONOSCOPY [facility] Endoscopy ___ Procedure Date: 02/26/2021 4:21 PM ? Patient Name: Brian Rodriguez ? Date of : 1950 ? Age: 70 ? Order #: [id number] ? Instrument Name: [id number] ? ___ Procedure: ? Colonoscopy Indications: ? [...] preparation was evaluated using ? the BBPS ([place] Bowel Preparation ? Scale) with scores of: [...] CARE TEST O RDERABLES Performing Organization Address City/[facility]/ZIP Co de Phone Number [facility] [place] [address] documented in this encounter Visit Diagnoses Not [...] RN) documented in this encounter Care Teams Slice Plug Cutter Operator Relationship Specialty Start Date End Date Josue Wilkinson MD PCP - General General Internal Medicine 02/14/2107/26 documented as of this encounter
--- OUTSIDE RECORDS SUMMARY | 2024-07-22 13:07 | XMS_ITS | Encounter Summary ---
Author Organization [facility] Address [facility] [place] [address] Care Team Providers Care Nurse Midwife/Clinical Instructor Name Role Phone Maximilian Fall MD Primary Care Provider Encounter Details Date Type Department Care Team (Latest Contact Info) Description 03/20/2020 10:00 AM EDT TH Visit (TeleHealth) [place] [address] Dion Osullivan MD [facility] [place] [address] Other ulcerative colitis with rectal bleeding Social [...] Note: ?? Colonoscopy 04/08/10 ([facility] apparently recommended by his urology team and [facility]. He reports for a UTI (perhaps chronic [...] past surgical history that includes Colonoscopy, Diagnostic (64603) (11/27/2011); Sigmoidoscopy, Diagnostic (53193) (03/16/2012); Upper Gi Endoscopy, Exam (88835) (10/01/2012); Colonoscopy, Diagnostic (33638) (07/13/2014); Colonoscopy, Biopsy (42150) (N/A, 02/12/2017); Colonoscopy, Biopsy (99771) (N/A, 02/22/2019); Colonoscopy, Remv Lesn, Snare ([id number]) (N/A, 02/22/2019); and Upper GI Endoscopy, Diagnostic (36946) (N/A, 04/28/2019). Family History: family history is [...] Would check C. Diff and lactoferrin at [facility]. Also, will call if diarrhea does not [...] with patient on above. Dion OSULLIVAN MD [facility] [place] [address] documented in this encounter Plan of Treatment Upcoming Encounters Date Type Department Care Team (Late st Contact Info) Description 08/15/2024 9:00 AM EDT Office Visit [place] [address] Dion Osullivan MD [facility] [place] [address] 09/01/2024 9:40 AM EDT Office Visit Cardiology at [address] [place] [address] Franky Shaver MD [facility] [place] [address] 09/01/2024 11:20 AM EDT Office Visit Dermatology at [facility] [address] [address] Gómez Mercer MD [facility] [place] [address] 09/21/2024 2:45 PM EDT Office Visit [facility] [place] [address] Trung Hoyos MD [facility] [place] [address] documented as of this encounter Visit Diagnoses Diagnosis Other ulcerative colitis with rectal bleeding documented in this encounter Care Teams Nurse Midwife/Clinical Instructor Relationship Specialty Start Date End Date Maximilian Fall MD [address] [facility] 1 [place] [address] PCP - General 10/01/11 02/13/21 documented as of this encounter
--- OUTSIDE RECORDS SUMMARY | 2024-07-22 13:07 | XMS_ITS | Encounter Summary ---
Author Organization [facility] [place] [address] Care Team Providers Care Sand Technologist Name Role Phone Maximilian Fall MD Primary Care Provider [phone] Reason for Visit * Reason Comments Medication Refill Encounter Details Date Type Department Care Team (Late st Contact Info) Description 09/03/2020 [place] [address] Dion Barlow MD [facility] [place] [address] Social History Tobacco Use Types Packs/Day Years [...] 9:00 AM EDT Office [place] [address] Dion Barlow MD [facility] [place] [address] 09/01/2024 9:40 AM EDT Office Visit Cardiology at [address] [place] [address] Franky Shaver MD [facility] [place] [address] 09/01/2024 11:20 AM EDT Office Visit Dermatology at [facility] [address] [place] [address] Gómez Mercer MD [facility] DR EDDIE [place] [address] 09/21/2024 2:45 PM EDT Office Visit [place] [address] Trung Hoyos MD [facility] [place] [address] documented as of this encounter Visit Diagnoses Not on filedocumented in this encounter Care Teams Sand Technologist Relationship Specialty Start Date End Date Maximilian Fall MD [address] [facility] 1 [place] [address] PCP - General 10/01/11 02/13/21 documented as of this encounter
--- OUTSIDE RECORDS SUMMARY | 2024-07-22 13:07 | XMS_ITS | Encounter Summary ---
Author Organization [facility] [place] [address] Care Team Providers Care Tar Chaser Name Role Phone Maximilian Fall MD Primary Care Provider [phone] Encounter Details Date Type Department Care Team (Late st Contact Info) Description 03/07/2019 Ancillary Procedure [place] [address] [facility] [place] [address] Social History Tobacco Use Types Packs/Day Years [...] 9:00 AM EDT Office Visit [place] [address] Dion Barlow MD [facility] [place] [address] 09/01/2024 9:40 AM EDT Office Visit Cardiology at [address] [place] [address] [facility] [place] [address] 09/01/2024 11:20 AM EDT Office Visit Dermatology at [facility] [address] [place] [address] Gómez Mercer MD [facility] DR EDDIE [place] [address] 09/21/2024 2:45 PM EDT Office Visit [facility] [place] [address] [facility] [place] [address] documented as of this encounter Procedures Procedure Name Priority Date/Time Associated Diagnosis Comments FILM LIBRARY STORAGE ONLY CT ABDOMEN AND PELVIS Routine 03/07/2019 12:00 AM EDT documented in this encounter Results * Film Library- Storage Only CT Abdomen & Pelvis (03/07/2019 12:00 AM EDT) Narrative [facility] - 04/27/2019 3:15 AM EDT This exam is auto-finalizing. It's purpose is for storage only. L Karthik Barlow MD IMG FILM LIBRARY ORD ERABLES [place], [place] documented in this encounter Visit Diagnoses Not on filedocumented in this encounter Care Teams Tar Chaser Relationship Specialty Start Date End Date Maximilian Fall MD [address] [place] [address] PCP - General 10/01/11 02/13/21 documented as of this encounter
--- OUTSIDE RECORDS SUMMARY | 2024-07-22 13:07 | XMS_ITS | Encounter Summary ---
Author Organization [facility] [place] [address] Care Team Providers Care Regulatory Compliance Coordinator Name Role Phone Maximilian Fall MD Primary Care Provider [phone] Encounter Details Date Type Department Care Team (Late st Contact Info) Description 04/26/2019 Ancillary Procedure [place] [address] Dion Barlow MD [facility] [place] [address] Social History Tobacco Use Types Packs/Day Years [...] 9:00 AM EDT Office [place] [address] Dion Barlow MD [facility] [place] [address] 09/01/2024 9:40 AM EDT Office Visit Cardiology at [address] [place] [address] Franky Shaver MD [facility] [place] [address] 09/01/2024 11:20 AM EDT Office Visit Dermatology at [facility] [address] [place] [address] Gómez Mercer MD [facility] DR [place] [address] 09/21/2024 2:45 PM EDT Office Visit [facility] [place] [address] Trung Hoyos MD [facility] [place] [address] documented as of this encounter Procedures Procedure Name Priority Date/Time Associated Diagnosis Comments FILM LIBRARY STORAGE ONLY CT ABDOMEN AND PELVIS Routine 04/26/2019 12:00 AM EDT documented in this encounter Results * Film Library- Storage Only CT Abdomen & Pelvis (04/26/2019 12:00 AM EDT) Narrative [facility] - 04/27/2019 3:22 AM EDT This exam is auto-finalizing. It's purpose is for storage only. L Karthik Barlow MD IMG FILM LIBRARY ORD ERABLES [place], [place] documented in this encounter Visit Diagnoses Not on filedocumented in this encounter Care Teams Regulatory Compliance Coordinator Relationship Specialty Start Date End Date Maximilian Fall MD [address] [place] [address] PCP - General 10/01/11 02/13/21 documented as of this encounter
--- OUTSIDE RECORDS SUMMARY | 2024-07-22 13:07 | XMS_ITS | Encounter Summary ---
Author Organization [facility] Address [facility] [address] Care Team Providers Care Buttoner Name Role Phone Josue Wilkinson MD Primary Care Provider [phone] Encounter Details Date Type Department Care Team (Late st Contact Info) Description 04/30/2021 Telephone [place] [phone] Marcelle Weinberg APRN [facility] [place] [address] Social History Tobacco Use Types Packs/Day Years [...] 9:00 AM EDT Office [place] [phone] Dion Barlow MD [facility] [place] [address] 09/01/2024 9:40 AM EDT Office Visit Cardiology at [address] [address] Franky Shaver MD [facility] [place] [address] 09/01/2024 11:20 AM EDT Office Visit Dermatology at [address] [address] Gómez Mercer MD [facility] DR EDDIE SANCHEZ-DERMATOLOGY [place], [place] [phone] 09/21/2024 2:45 PM EDT Office Visit [place] [address] Trung Hoyos MD [facility] [place] [address] documented as of this encounter Results * Vitamin B12 (05/31/2021 1:49 PM EDT) Vitamin B12 389 232 - 1,245 pg/mL [facility] Blood 05/31/2021 1:49 PM EDT 05/31/2021 1:52 PM EDT Narrative Resulting Agency Comment Spec In Lab Marcelle Weinberg MUNITIONS HANDLER CHEMISTRY ORDERAB LES [facility] [place] [address] * Iron and TIBC (05/31/2021 1:49 PM EDT) Iron 86 45 - 160 mcg/dL [facility] TIBC 286 250 - 450 mcg/dL [facility] Iron Saturation 30 20 - 50 % [facility] Blood 05/31/2021 1:49 PM EDT 05/31/2021 1:52 PM EDT Narrative Resulting Agency Comment Spec In Lab Marcelle Dunnjeovannyjania MUNITIONS HANDLER CHEMISTRY ORDERAB LES [facility] [place] [address] * Ferritin (05/31/2021 1:49 PM EDT) Ferritin 94 30 - 400 ng/mL [facility] Comment: Pediatric reference ranges not verified at [facility], interpret with caution. Reference ranges for females greater than 50 years of age approach values for men, i.e., 30-400 ng/mL. Blood 05/31/2021 1:49 PM EDT 05/31/2021 1:52 PM EDT Narrative Resulting Agency Comment Spec In Lab Marcelle Dunnjeovannyv MUNITIONS HANDLER CHEMISTRY ORDERAB LES [facility] [place] [address] documented in this encounter Visit Diagnoses Diagnosis Left sided colitis without complications Left sided ulcerative (chronic) colitis documented in this encounter Care Teams Buttoner Relationship Specialty Start Date End Date Josue Wilkinson MD PCP - General General Internal Medicine 02/14/2107/26 documented as of this encounter
--- OUTSIDE RECORDS SUMMARY | 2024-07-22 13:07 | XMS_ITS | Encounter Summary ---
Author Organization [facility] [place] [address] Care Team Providers Care Citrix Architect Name Role Phone Maximilian Fall MD Primary Care Provider [phone] Reason for Visit * Reason Onset Date Comments Medication Refill 12/11/2020 Encounter Details Date Type Department Care Team (Late st Contact Info) Description 12/11/2020 Refill [place] [phone] Dion Barlow MD [facility] [place] [address] Left sided colitis without complications Social History [...] AM EDT Office Visit [place] [phone] Dion Barlow MD [facility] [place] [address] 09/01/2024 9:40 AM EDT Office Visit Cardiology at [address] [place] [phone] Franky Shaver MD [facility] [place] [address] 09/01/2024 11:20 AM EDT Office Visit Dermatology at [facility] [address] [place] [phone] Gómez Mercer MD [facility] [place] [address] 09/21/2024 2:45 PM EDT Office Visit [facility] [place] [address] Trung Hoyos MD [facility] [place] [address] documented as of this encounter Visit Diagnoses Diagnosis Left sided colitis without complications Left sided ulcerative (chronic) colitis documented in this encounter Care Teams Citrix Architect Relationship Specialty Start Date End Date Maximilian Fall MD [address] [facility] [address] [place] [address] PCP - General 10/01/11 02/13/21 documented as of this encounter
--- OUTSIDE RECORDS SUMMARY | 2024-07-22 13:07 | XMS_ITS | Encounter Summary ---
Author Organization [facility] [place] [address] Care Team Providers Care Hog Raiser Name Role Phone Josue Wilkinson MD Primary Care Provider [phone] Reason for Visit * Reason Onset Date Comments Medication Refill 05/06/2021 Encounter Details Date Type Department Care Team (Late st Contact Info) Description 05/06/2021 [place] [phone] Marcelle Weinberg, JAZMINE [facility] [place] [address] Social History Tobacco Use Types Packs/Day Years [...] 9:00 AM EDT Office [place] [phone] Dion Barlow MD [facility] [place] [address] 09/01/2024 9:40 AM EDT Office Visit Cardiology at [address] [place] [phone] Franky Shaver MD [facility] [place] [address] 09/01/2024 11:20 AM EDT Office Visit Dermatology at [facility] [address] [place] [phone] Gómez Mercer MD [facility] [place] [address] 09/21/2024 2:45 PM EDT Office Visit [place] [address] Trung Hoyos MD [facility] [place] [address] documented as of this encounter Visit Diagnoses Not on filedocumented in this encounter Care Teams Hog Raiser Relationship Specialty Start Date End Date Josue Wilkinson MD PCP - General General Internal Medicine 02/14/21 9/3 documented as of this encounter
--- OUTSIDE RECORDS SUMMARY | 2024-07-22 13:07 | XMS_ITS | Encounter Summary ---
Author Organization [facility] Address [facility] [place] [address] Care Team Providers Care Water Quality Analyst Name Role Phone Deacon Watters APRN Primary Care Provider [phone] Encounter Details Date Type Department Care Team (Late st Contact Info) Description 02/17/2022 9:30 AM EDT Office Visit [place] [address] Marcelle Weinberg MANAGER INFUSION [facility] [place] [address] Other ulcerative colitis with rectal bleeding Social [...] ? Colonoscopy 04/08/10 (Dr. Gomes [facility]) - inflammation only within the rectum and sigmoid; extent of the exam was to the hepatic flexure; biopsies proximal to the sigmoid nl ?? Repeat exam 11/27/11 ([facility] mildly active colitis in the [...] Final Recent endoscopic procedures 06/28/21 EGD ( [facility]): Pre op Dx; Dysphagia Post [...] Disease Center Section of Gastroenterology and Hepatology [address] [address] documented in this encounter Plan of Treatment Upcoming Encounters Date Type Department Care Team (Late st Contact Info) Description 08/15/2024 9:00 AM EDT Office Visit [place] [address] Dion Barlow MD [facility] [place] [address] 09/01/2024 9:40 AM EDT Office Visit Cardiology at [address] [place] [address] Franky Shaver MD [facility] [place] [address] 09/01/2024 11:20 AM EDT Office Visit Dermatology at [facility] [address] [place] [phone] Gómez Mercer MD [facility] DR EDDIE [place] [address] 09/21/2024 2:45 PM EDT Office Visit Pain and Spine Center at [facility] [place] [address] Trung Hoyos MD [facility] [place] [address] Scheduled Orders Name Type Priority Associated Diagnoses [...] AM EDT) Calprotectin, Stool 55 <=79 mcg/g [facility] Comment: Calprotectin Concentration ? Interpretation ? < 80 mcg/g ?Normal ? 80 ? 160 mcg/g ?Borderline ? >160 mcg/g ?Elevated Stool 02/19/2022 8:00 AM EDT 02/19/2022 11:25 AM EDT Narrative Resulting Agency Comment Spec In Lab Marcelle Conte Dragwill MANAGER INFUSION BODY FLUIDS AND S TOOLS ORDERABLES Performing Organization Address City/State/[facility] Co de Phone Number [facility] [place] [address] * (ABNORMAL) Differential, Automated (02/17/2022 10:40 AM EDT) Neutrophil % 65.7 % [facility] Neutrophil Absolute 4.53 1.70 - 6.10 x10(3)/mc L [facility] Lymph % 22.8 % [facility] Lymphocytes Abs 1.6 0.9 - 3.2 x10(3)/mc L [facility] Monocyte % 7.3 % [facility] Monocyte Abs 0.5 0.3 - 0.9 x10(3)/mc L [facility] Eos % 2.6 % [facility] Eosinophils Abs 0.2 0.0 - 0.4 x10(3)/mc L [facility] Basophil % 0.6 % [facility] Baso Absolute 0.0 0.0 - 0.1 x10(3)/mc L [facility] Immature Gran % 1.00 % [facility] Comment: Immature granulocytes(IG's)percentage and absolute count will include metamyelocytes, myelocytes, and promyelocytes. Blood smears from CBCs yielding IG's will be scanned manually for concordance. If this scan disagrees with the automated IG or if promyelocytes are noted, a manual differential will be performed. Immature Gran Absolute 0.07(H) 0.00 - 0.04 x10(3)/ L [facility] Blood 02/17/2022 10:4 0 AM EDT 02/17/2022 10:50 AM EDT Narrative Resulting Agency Comment Spec In Lab Marcelle Conte Dg Weinberg MANAGER INFUSION HEMATOLOGY ORDERA BLES [facility] [place] [address] * (ABNORMAL) Hemogram (02/17/2022 10:40 AM EDT) White Blood Cell 6.9 4.0 - 9.5 x10(3)/[facility] Red Blood Cell 3.58(L) 4.58 - 5.54 x10(6)/ L [facility] Hemoglobin 11.5(L) 13.7 - 16.5 g/dL [facility] Hematocrit 35.1(L) 40.5 - 48.5 % [facility] Mean Cell Volume 98.0(H) 82.9 - 93.1 fL [facility] Mean Cell Hemoglobin 32.1 27.5 - 32.1 pg [facility] Mean Cell Hemoglobin Concentration 32.8 32.0 - 35.7 g/dL [facility] Platelet 220 145 - 357 x10(3)/ L [facility] RDW Standard Deviation 44.3 36.0 - 45.0 [facility] RDW coefficient of variation 12.3 11.4 - 13.8 % [facility] Mean Platelet Volume 10.5 7.6 - 12.9 [facility] NRBC% auto 0.0 % [facility] NRBC Absolute 0.000 0.000 - 0.000 x10(3)/mc L [facility] Blood 02/17/2022 10:4 0 AM EDT 02/17/2022 10:50 AM EDT Narrative Resulting Agency Comment Spec In Lab Marcelle Weinberg MANAGER INFUSION HEMATOLOGY ORDERA BLES Performing Organization Address City/[facility]/ZIP Co de Phone Number [facility] [place] [address] * (ABNORMAL) CRP, acute inflammation (02/17/2022 10:40 AM EDT) C-Reactive Protein 5.0(H) <=4.9 mg/L [facility] Blood 02/17/2022 10:4 0 AM EDT 02/17/2022 10:50 AM EDT Narrative Resulting Agency Comment Spec In Lab Marcelle Dunnjeovannyjania MANAGER INFUSION CHEMISTRY ORDERAB LES Performing Organization Address [facility] Co de Phone Number [facility] [place] [address] * (ABNORMAL) Sedimentation rate (02/17/2022 10:40 AM EDT) [facility] Sedimentation Rate Automated 64(H) 3 - 46 mm/hr [facility] Comment: Effective November 02, 2019 new capillary photometric technology has resulted in a change in reference ranges. It is recommended that each ESR result be reviewed with its own age appropriate reference range. Blood 02/17/2022 10:4 0 AM EDT 02/17/2022 10:50 AM EDT Narrative Resulting Agency Comment Spec In Lab Marcelle Weinberg MANAGER INFUSION HEMATOLOGY ORDERA BLES Performing Organization Address [facility]/ZIP Co de Phone Number [facility] [place] [address] * Comprehensive metabolic panel (non-fasting) (02/17/2022 10:40 AM EDT) Glucose 94 65 - 199 mg/dL [facility] Comment:Diabetes: >=200 mg/d L plus symptoms Blood Urea Nitrogen 14 10 - 20 mg/dL [facility] Creatinine 1.06 0.80 - 1.50 mg/dL [facility] Sodium 144 135 - 145 mmol/L [facility] Potassium 3.9 3.5 - 5.0 mmol/L [facility] [...] 15 mmol/L [facility] Calcium 9.7 8.5 - 10.5 mg/dL [facility] Protein, Total 8.0 6.1 - 8.0 g/dL [facility] Albumin 4.3 3.2 - 5.2 g/dL [facility] Aspartate Aminotransferase 10 0 - 39 unit/L [facility] Alanine Aminotransferase 17 0 - 55 unit/L [facility] Alkaline Phosphatase 78 40 - 130 unit/L [facility] Bilirubin, Total 0.4 0.2 - 1.3 mg/dL [facility] Est Glomerular Filtration Rate 69 >=60 mL/min/1. 73 m?? [facility] [...] Comment Spec In Lab Marcelle Weinberg MANAGER INFUSION CHEMISTRY ORDERAB LES Performing Organization Address City/State/[facility] Co de Phone Number [facility] [place] [address] documented in this encounter Visit Diagnoses Diagnosis Other ulcerative colitis with rectal bleeding documented in this encounter Care Teams Water Quality Analyst Relationship Specialty Start Date End Date Deacon Watters APRN [address] [place] [address] PCP - General Family Medicine 02/17/22 documented as of this encounter
--- OUTSIDE RECORDS SUMMARY | 2024-07-22 13:07 | XMS_ITS | Encounter Summary ---
Author Organization [facility] [place] [address] Care Team Providers Care Microbiology Technologist Name Role Phone Josue Wilkinson MD Primary Care Provider Encounter Details Date Type Department Care Team (Latest Contact Info) Description 05/31/2021 1:35 PM EDT Laboratory Appointment Lab [address] [place] [phone] Left sided colitis without complications Social History [...] 9:00 AM EDT Office [place] [phone] Dion Barlow MD [facility] [place] [address] 09/01/2024 9:40 AM EDT Office Visit Cardiology at [address] [phone] Franky Shaver MD [facility] [address] 09/01/2024 11:20 AM EDT Office Visit Dermatology at [facility] [address] [place] [address] Gómez Mercer MD [facility] DR EDDIE [place] [address] 09/21/2024 2:45 PM EDT Office Visit Pain and Spine Center at [facility] [place] [phone] Trung Hoyos MD [facility] [place] [address] documented as of this encounter Procedures Procedure [...] 1:49 PM EDT) Neutrophil % 70.8 % [facility] Neutrophil Absolute 5.02 1.70 - 6.10 x10(3)/[facility] Lymph % 18.5 % [facility] Lymphocytes Abs 1.3 0.9 - 3.2 x10(3)/[facility] Monocyte % 6.9 % [facility] Monocyte Abs 0.5 0.3 - 0.9 x10(3)/[facility] Eos % 2.8 % [facility] Eosinophils Abs 0.2 0.0 - 0.4 x10(3)/[facility] Basophil % 0.6 % [facility] Baso Absolute 0.0 0.0 - 0.1 x10(3)/[facility] Immature Gran % 0.40 % [facility] Comment: Immature granulocytes(IG's)percentage and absolute count will include metamyelocytes, myelocytes, and promyelocytes. Blood smears from CBCs yielding IG's will be scanned manually for concordance. If this scan disagrees with the automated IG or if promyelocytes are noted, a manual differential will be performed. Immature Gran Absolute 0.03 0.00 - 0.04 x10(3)/[facility] Blood 05/31/2021 1:49 PM EDT 05/31/2021 1:52 PM EDT Narrative Resulting Agency Comment Spec In Lab Marcelle Weinberg DIRECTOR OUTCOMES HEMATOLOGY ORDERA BLES [facility] [place] [address] * (ABNORMAL) Hemogram (05/31/2021 1:49 PM EDT) White Blood Cell 7.1 4.0 - 9.5 x10(3)/[facility] Red Blood Cell 3.85(L) 4.58 - 5.54 x10(6)/ L [facility] Hemoglobin 12.6(L) 13.7 - 16.5 gm/dL [facility] Hematocrit 38.4(L) 40.5 - 48.5 % [facility] Mean Cell Volume 99.7(H) 82.9 - 93.1 fL [facility] Mean Cell Hemoglobin 32.7(H) 27.5 - 32.1 pg [facility] Mean Cell Hemoglobin Concentration 32.8 32.0 - 35.7 gm/dL [facility] Platelet 215 145 - 357 x10(3)/mc L [facility] RDW Standard Deviation 45.1(H) 36.0 - 45.0 fL [facility] RDW coefficient of variation 12.3 11.4 - 13.8 % [facility] Mean Platelet Volume 11.2 7.6 - 12.9 fL [facility] NRBC% auto 0.0 % [facility] NRBC Absolute 0.000 0.000 - 0.000 x10(3)/mc L [facility] Blood 05/31/2021 1:49 PM EDT 05/31/2021 1:52 PM EDT Narrative Resulting Agency Comment Spec In Lab Marcelle Weinberg DIRECTOR OUTCOMES HEMATOLOGY ORDERA BLES Performing Organization Address City/[facility]/ZIP Co de Phone Number [facility] [place] [address] * Ferritin (05/31/2021 1:49 PM EDT) [facility] Ferritin 94 30 - 400 ng/mL [facility] Comment: Pediatric reference ranges not verified at [facility], interpret with caution. Reference ranges for females greater than 50 years of age approach values for men, i.e., 30-400 ng/mL. Blood 05/31/2021 1:49 PM EDT 05/31/2021 1:52 PM EDT Narrative Resulting Agency Comment Spec In Lab Marcelle Weinberg DIRECTOR OUTCOMES CHEMISTRY ORDERAB LES Performing Organization Address City/[facility]/ZIP Co de Phone Number [facility] [place] [address] * Iron and TIBC (05/31/2021 1:49 PM EDT) Iron 86 45 - 160 mcg/dL [facility] TIBC 286 250 - 450 mcg/dL [facility] Iron Saturation 30 20 - 50 % [facility] Blood 05/31/2021 1:49 PM EDT 05/31/2021 1:52 PM EDT Narrative Resulting Agency Comment Spec In Lab Marcelle Weinberg DIRECTOR OUTCOMES CHEMISTRY ORDERAB LES Performing Organization Address City/[facility]/ZIP Co de Phone Number [facility] [place] [address] * Vitamin B12 (05/31/2021 1:49 PM EDT) Vitamin B12 389 232 - 1,245 pg/mL [facility] Blood 05/31/2021 1:49 PM EDT 05/31/2021 1:52 PM EDT Narrative Resulting Agency Comment Spec In Lab Marcelle Dunnjeovannyjania DIRECTOR OUTCOMES CHEMISTRY ORDERAB LES Performing Organization Address City/[facility]/ZIP Co de Phone Number [facility] [place] [address] documented in this encounter Visit Diagnoses Diagnosis Left sided colitis without complications Left sided ulcerative (chronic) colitis documented in this encounter Care Teams Microbiology Technologist Relationship Specialty Start Date End Date Josue Wilkinson MD PCP - General General Internal Medicine 02/14/21 9/3 documented as of this encounter
--- OUTSIDE RECORDS SUMMARY | 2024-07-22 13:07 | XMS_ITS | Encounter Summary ---
Author Organization [facility] Address [facility] [place] [address] Care Team Providers Care Pbx Inspector Name Role Phone Unknown Primary Care Provider Unavailabl e Encounter Details Date Type Department Care Team (Latest Contact Info) Description 08/26/2021 9:30 AM EDT Office [place] [address] Dion Barlow MD [facility] [place] [address] Other ulcerative colitis with rectal bleeding; Left [...] manometry. - Obtain upper endoscopy report from [facility] in June 2021 - Avoid non-steroidal [...] Note: ?? Colonoscopy 04/08/10 (Dr. Gomes [facility]) - inflammation only within the rectum and sigmoid; extent of the exam was to the hepatic flexure; biopsies proximal to the sigmoid nl ?? [place] exam 11/27/11 [place] mildly active colitis in [...] dysphagia to solids. Had an EGD at [facility] in Jun and recalls was normal. [...] manometry. - Obtain upper endoscopy report from [facility] in June 2021 - Avoid non-steroidal anti-inflammatory medications (NSAIDs) including but not limited to Advil, ibuprofen, Motrin, Aleve, Excedrin, naproxen, Mobic, indomethacin, and aspirin. Acetaminophen (Tylenol) is okay for aches and pains. - Follow-up in 6 months - will schedule colonoscopy at that time. I spent 30 min today reviewing the chart preparing for this visit, counseling the patient [id number] on the issues outlined above, and documenting an implementing the plan. Davina Barlow MD [employer] Breederm[employer] engineering technician Co-Director, [facility] Section of Gastroenterology [place] [address] documented in this encounter Plan of Treatment Upcoming Encounters Date Type Department Care Team (Late st Contact Info) Description 08/15/2024 9:00 AM EDT Office [place] [address] Dion Barlow MD [facility] [place] [address] 09/01/2024 9:40 AM EDT Office Visit Cardiology at [address] [place] [phone] Franky Shaver MD [facility] [place] [place] [address] 09/01/2024 11:20 AM EDT Office Visit Dermatology at [facility] [address] [place] [phone] Gómez Mercer MD [facility] [place] [address] 09/21/2024 2:45 PM EDT Office Visit [place] [address] Trung Hoyos MD [facility] [place] [address] documented as of this encounter Visit Diagnoses Diagnosis Other ulcerative colitis with rectal bleeding Left sided colitis without complications Left sided ulcerative (chronic) colitis documented in this encounter Care Teams Pbx Inspector Relationship Specialty Start Date End Date Unknown None PCP - General 08/23/21 02/16/22 documented as of this encounter
--- OUTSIDE RECORDS SUMMARY | 2024-07-22 13:07 | XMS_ITS | Encounter Summary ---
Author Organization [facility] Address [facility] [place] [address] Care Team Providers Care Die Repair Machinist Name Role Phone Maximilian Fall MD Primary Care Provider [phone] Encounter Details Date Type Department Care Team (Late st Contact Info) Description 02/22/2019 Orders [place] [phone] Dion Barlow MD [facility] [place] [address] Social History Tobacco Use Types Packs/Day Years [...] 9:00 AM EDT Office Visit [place] [phone] Dion Barlow MD [facility] [place] [address] 09/01/2024 9:40 AM EDT Office Visit Cardiology at [address] [place] [phone] Franky Shaver MD [facility] [place] [address] 09/01/2024 11:20 AM EDT Office Visit Dermatology at [facility] [address] [place] [phone] Gómez Mercer MD [facility] DR EDD[facility] [place] [address] 09/21/2024 2:45 PM EDT Office Visit [facility] [place] [phone] Trung Hoyos MD [facility] [place] [address] documented as of this encounter Visit Diagnoses Not on filedocumented in this encounter Care Teams Die Repair Machinist Relationship Specialty Start Date End Date Maximilian Fall MD [address] [facility] [place] [address] PCP - General 10/01/11 02/13/21 documented as of this encounter
--- OUTSIDE RECORDS SUMMARY | 2024-07-22 13:07 | XMS_ITS | Encounter Summary ---
Author Organization [facility] Address [facility] [place] [address] Care Team Providers Care Surgical Garment Assembly Supervisor Name Role Phone Maximilian Fall MD Primary Care Provider [phone] Encounter Details Date Type Department Care Team (Late st Contact Info) Description 04/28/2019 4:15 PM EDT - 04/28/2019 4:45 PM EDT Surgery [place] [address] Iza Coates MD [facility] [place] [address] EGD, UPPER GI ENDOSCOPY (WRVU 2.09) Social [...] Care Everywhere. * EGD (Upper Endoscopy): Post-op (Montserratian) documented in this encounter Medications at Time [...] sedation) Iza Coates MD Gastroenterology attending Pager [phone] documented in this encounter Plan of Treatment Upcoming Encounters Date Type Department Care Team (Late st Contact Info) Description 08/15/2024 9:00 AM EDT Office Visit [place] [address] Dion Barlow MD [facility] [place] [address] 09/01/2024 9:40 AM EDT Office Visit Cardiology at [address] [phone] Franky Shaver MD [facility] [place] [address] 09/01/2024 11:20 AM EDT Office Visit Dermatology at [facility] [address] [place] [address] Gómez Mercer MD [facility] [address] [place] [address] 09/21/2024 2:45 PM EDT Office Visit Pain and Spine Center at [facility] [place] [phone] Trung Hoyos MD [facility] [place] [address] documented as of this encounter Procedures Procedure [...] 5:03 PM EDT 04/28/2019 5:03 PM EDT [facility] LABORATORY - 04/28/2019 5:03 PM EDT Specimen requisition ordered. ??Separate Pathology report to follow Iza Coates MD PATHOLOGY/CYTOLOG Y ORDERABLES Performing Organization Address [facility] Co de Phone Number [facility] [place] [address] * Specimen to Pathology (04/28/2019 5:03 PM EDT) AP Specimen 04/28/2019 5:03 PM EDT 04/28/2019 5:03 PM EDT Narrative [facility] - 04/28/2019 5:03 PM EDT Specimen requisition ordered. ??Separate Pathology report to follow Iza Coates MD PATHOLOGY/CYTOLOG Y ORDERABLES Performing Organization Address [facility] [place] [address] * Surgical Pathology Report (04/28/2019 4:50 PM EDT) Final Diagnosis [id number] ? Location: 4T; EA10; A The signing pathologist has (i) examined the relevant preparation(s) for the specimen(s) and (ii) rendered or confirmed the diagnosis(es). . ?Surgical Pathology DIAGNOSIS A - Random duodenum, biopsy: Duodenal mucosa within normal limits, including preserved villous architecture. B - Fundic gland, polypectomy: Gastric fundic gland polyp. Electronically signed by: ??Joana Soler MD Verified: ??05/02/2019 ?Pathologist Performed at: ??-[facility] Dept. of Pathology, [place], [place] CLINICAL INFORMATION Specimen Submitted: A - [...] labeled B1. ??ejr 05/02/2019 4:02 PM EDT [facility] GI Biopsy 04/28/2019 4:50 PM EDT 04/28/2019 4:50 PM EDT GI Biopsy 04/28/2019 4:50 PM EDT 04/28/2019 4:50 PM EDT Iza Coates MD PATHOLOGY/CYTOLOG Y ORDERABLES [facility] [place] [address] * UPPER GI ENDOSCOPY (04/28/2019 4:39 PM EDT) UPPER GI ENDOSCOPY [facility] Endoscopy Procedure Date: 04/28/2019 4:39 PM ? Patient Name: Brian Rodriguze ? Date of : 1950 ? Age: 68 ? Order #: [id number] ? Instrument Name: [id number] ? Procedure: ? Upper GI endoscopy Indications: ? Abnormal CT of the GI tract (duodenal ? thickening) Providers: ? Iza Coates MD, Nohemi Ball, ? RN, Jonathan Ko, Brush Finisher Referring MD: ?Maximilian Fall MD Requesting Provider: [...] Glucose, POC 91 65 - 199 mg/dL [facility] Comment: Supplemental ranges: <140 mg/dL before meals <180 mg/dL all other times of the day Blood specimen (specimen) 04/28/2019 3:46 PM EDT 04/28/2019 3:46 PM EDT Iza Coates MD POINT OF CARE KISHOR T ORDERABLES Performing Organization Address [facility] Co de Phone Number [facility] [place] [address] documented in this encounter Visit Diagnoses Diagnosis [...] RN) documented in this encounter Care Teams Surgical Garment Assembly Supervisor Relationship Specialty Start Date End Date Maximilian Fall MD [address] [place] [address] PCP - General 10/01/11 02/13/21 documented as of this encounter
--- OUTSIDE RECORDS SUMMARY | 2024-07-22 13:07 | XMS_ITS | Encounter Summary ---
Author Organization [facility] [place] [address] Care Team Providers Care Embroidery Specialist Name Role Phone Maximilian Fall MD Primary Care Provider [phone] Reason for Visit * Reason Onset Date Comments Medication Refill 06/27/2019 Encounter Details Date Type Department Care Team (Late st Contact Info) Description 06/27/2019 Refill [place] [address] Sophia Coleman, CCMA Social History Tobacco Use [...] 9:00 AM EDT Office Visit [place] [phone] Dion Barlow MD [facility] [place] [address] 09/01/2024 9:40 AM EDT Office Visit Cardiology at [address] [phone] Franky Shaver MD [facility] [place] [address] 09/01/2024 11:20 AM EDT Office Visit Dermatology at [facility] [address] [place] [address] Gómez Mercer MD [facility] DR [place] [address] 09/21/2024 2:45 PM EDT Office Visit Pain and Spine Center at [facility] [place] [phone] Trung Hoyos MD [facility] [place] [address] documented as of this encounter Visit Diagnoses Not on filedocumented in this encounter Care Teams Embroidery Specialist Relationship Specialty Start Date End Date Maximilian Fall MD [address] [place] [address] PCP - General 10/01/11 02/13/21 documented as of this encounter
--- OUTSIDE RECORDS SUMMARY | 2024-07-22 13:07 | XMS_ITS | Encounter Summary ---
Author Organization [facility] Address [facility] [place] [address] Care Team Providers Care Mapping Supervisor Name Role Phone Maximilian Fall MD Primary Care Provider [phone] Encounter Details Date Type Department Care Team (Latest Contact Info) Description 04/28/2019 3:07 PM EDT - 04/28/2019 6:06 PM EDT Hospital Encounter [place] [address] Iza Coates MD [facility] [place] [address] Discharge Disposition: Home Social History Tobacco Use [...] Care Everywhere. * EGD (Upper Endoscopy): Post-op (Fijian) documented in this encounter Medications at Time [...] sedation) Iza Coates MD Gastroenterology attending Pager [phone] documented in this encounter Plan of Treatment Upcoming Encounters Date Type Department Care Team (Late st Contact Info) Description 08/15/2024 9:00 AM EDT Office Visit [place] [address] Dion Barlow MD [facility] [place] [address] 09/01/2024 9:40 AM EDT Office Visit Cardiology at [address] [place] [address] Franky Shaver MD [facility] [place] [address] 09/01/2024 11:20 AM EDT Office Visit Dermatology at [facility] [address] [place] [address] Gómez Mercer MD [facility] DR EDD[place] [address] 09/21/2024 2:45 PM EDT Office Visit Pain and Spine Center at [facility] [place] [address] Trung Hoyos MD [facility] [place] [address] documented as of this encounter Procedures Procedure [...] EDT 04/28/2019 5:03 PM EDT [facility] LABORATORY - 04/28/2019 5:03 PM EDT Specimen requisition ordered. ??Separate Pathology report to follow Iza Coates MD PATHOLOGY/CYTOLOG Y ORDERABLES [facility] [place] [address] * Specimen to Pathology (04/28/2019 5:03 PM EDT) AP Specimen 04/28/2019 5:03 PM EDT 04/28/2019 5:03 PM EDT Narrative [facility] - 04/28/2019 5:03 PM EDT Specimen requisition ordered. ??Separate Pathology report to follow Iza Coates MD PATHOLOGY/CYTOLOG Y ORDERABLES Performing Organization Address [facility] Co de Phone Number [facility] [place] [address] * Surgical Pathology Report (04/28/2019 4:50 PM EDT) Final Diagnosis [id number] ? Location: 4T; EA10; A The signing pathologist has (i) examined the relevant preparation(s) for the specimen(s) and (ii) rendered or confirmed the diagnosis(es). . ?Surgical Pathology DIAGNOSIS A - Random duodenum, biopsy: Duodenal mucosa within normal limits, including preserved villous architecture. B - Fundic gland, polypectomy: Gastric fundic gland polyp. Electronically signed by: ??Joana Soler MD Verified: ??05/02/2019 ?Pathologist Performed at: ??-[facility] Dept. of Pathology, [place], [place] CLINICAL INFORMATION Specimen Submitted: A [...] labeled B1. ??ejr 05/02/2019 4:02 PM EDT [facility] GI Biopsy 04/28/2019 4:50 PM EDT 04/28/2019 4:50 PM EDT GI Biopsy 04/28/2019 4:50 PM EDT 04/28/2019 4:50 PM EDT Iza Coates MD PATHOLOGY/CYTOLOG Y ORDERABLES [facility] [place] [address] * UPPER GI ENDOSCOPY (04/28/2019 4:39 PM EDT) UPPER GI ENDOSCOPY [facility] Endoscopy Procedure Date: 04/28/2019 4:39 PM ? Patient Name: Brian Rodriguez ? Date of : 1950 ? Age: 68 ? Order #: [id number] ? Instrument Name: [id number] ? Procedure: ? Upper GI endoscopy Indications: ? Abnormal CT of the GI tract (duodenal ? thickening) Providers: ? Iza Coates MD, Nohemi Ball, ? RN, Jonathan Ko, Materials Assistant Referring MD: ?Maximilian Fall MD Requesting Provider: [...] GENERAL SURGICAL ORD ERABLES Performing Organization Address [facility] Co de Phone Number [facility] * POCT Glucose (04/28/2019 3:46 PM EDT) Glucose, POC 91 65 - 199 mg/dL [facility] Comment: Supplemental ranges: <140 mg/dL before meals <180 mg/dL all other times of the day Blood specimen (specimen) 04/28/2019 3:46 PM EDT 04/28/2019 3:46 PM EDT Iza Coates MD POINT OF CARE KISHOR T ORDERABLES Performing Organization Address [facility] de Phone Number [facility] [place] [address] documented in this encounter Visit Diagnoses Not [...] RN) documented in this encounter Care Teams Mapping Supervisor Relationship Specialty Start Date End Date Maximilian Fall MD [address] [place] [address] PCP - General 10/01/11 02/13/21 documented as of this encounter
--- OUTSIDE RECORDS SUMMARY | 2024-07-22 13:07 | XMS_ITS | Encounter Summary ---
Author Organization [facility] [place] [address] Care Team Providers Care Film Critic Name Role Phone Maximilian Fall MD Primary Care Provider [phone] Encounter Details Date Type Department Care Team (Latest Contact Info) Description 04/25/2019 12:15 PM EDT Ancillary Procedure [place] [phone] Marcelle Weinberg, JAZMINE [facility] [place] [address] Left sided colitis without complications Social History [...] 9:00 AM EDT Office [place] [phone] Dion Barlow MD [facility] [place] [address] 09/01/2024 9:40 AM EDT Office Visit Cardiology at [address] [place] [address] Franky Shaver MD [facility] [place] [address] 09/01/2024 11:20 AM EDT Office Visit Dermatology at [facility] [address] [place] [phone] Gómez Mercer MD [facility] [place] [address] 09/21/2024 2:45 PM EDT Office Visit Pain and Spine Center at [facility] [address] Trung Hoyos MD [facility] [place] [address] documented as of this encounter Visit Diagnoses Diagnosis Left sided colitis without complications Left sided ulcerative (chronic) colitis documented in this encounter Care Teams Film Critic Relationship Specialty Start Date End Date Maximilian Fall MD [address] [facility] [place] [address] PCP - General 10/01/11 02/13/21 documented as of this encounter
--- OUTSIDE RECORDS SUMMARY | 2024-07-22 13:07 | XMS_ITS | Encounter Summary ---
Author Organization [facility] Address [facility] [place] [address] Care Team Providers Care Bar Waiter/Waitress Name Role Phone Maximilian Fall MD Primary Care Provider [phone] Encounter Details Date Type Department Care Team (Latest Contact Info) Description 04/25/2019 10:00 AM EDT Office Visit [place] [address] Marcelle Weinberg APRN [facility] [place] [address] Left sided colitis without complications Social History [...] and have it re read [place] [facility] [place] Colonoscopy again spring 2020. # Avoid [...] ? Overview Note:? Colonoscopy 04/08/10 (Dr. Gomes [facility]) - inflammation only within the rectum and [...] 3.66) performed by Dion Osullivan MD at [facility] ??? PRO COLONOSCOPY, DIAGNOSTIC ?? 11/27/2011 ?? COLONOSCOPY, DIAGNOSTIC performed by Dion OSULLIVAN at [facility] ENDOSCOPY ??? PRO COLONOSCOPY, DIAGNOSTIC ?? 07/13/2014 ?? COLONOSCOPY, DIAGNOSTIC performed by Dion Osullivan MD at [facility] ENDOSCOPY ??? PRO SIGMOIDOSCOPY, DIAGNOSTIC ?? 03/16/2012 ?? FLEXIBLE SIGMOIDOSCOPY performed by YUDI MALLOY at [facility] END[facility] ??? UPPER GI ENDOSCOPY, EXAM ?? 10/01/2012 ?? UPPER GI ENDOSCOPY performed by Dion OSULLIVAN at [facility] ? Social History ?? Socioeconomic History [...] mg/L 5.0 (H) Surgical Pathology Report Unknown [id number] ... COLONOSCOPY Unknown [facility]... COLONOSCOPY COLONOSCOPY Collected: 02/22/19 2316 Resulting lab: PROVATION Value: [facility] Endoscopy Procedure Date: 02/22/2019 3:57 PM ? Patient Name: Brian Rodriguez ? Date of : 1950 ? Age: 68 ? Order #: [id number] ? Instrument Name: [id number] ? Procedure: ? Colonoscopy Indications: ? High [...] ?bowel preparation was evaluated using ?the BBPS ([place] Bowel Preparation ?Scale) with scores of: Right [...] HARVEY, Ana Verified: ??02/26/2019 ?Pathologist Performed at: ??-[facility] [place]. [place], [place], [place] 03/07/19 CT abd/pelvis ( [facility]): Non [...] He had a CT abd/pelvis done at [facility] (03/07/19)when he presented to his PCP with [...] and have it re read here [place] [facility] # Colonoscopy again spring 2020. # Avoid [...] 9:00 AM EDT Office Visit [place] [address] Dion Osullivan MD [facility] [place] [address] 09/01/2024 9:40 AM EDT Office Visit Cardiology at [address] [place] [address] Franky Shaver MD [facility] [place] [address] 09/01/2024 11:20 AM EDT Office Visit Dermatology at [facility] [address] [place] [address] Gómez Mercer MD [facility] [address] [place] [address] 09/21/2024 2:45 PM EDT Office Visit Pain and Spine Center at [facility] [place] [address] Trung Hoyos MD [facility] [place] [address] Scheduled Orders Name Type Priority Associated Diagnoses [...] 12:00 PM EDT) Neutrophil % 66.3 % [facility] Neutrophil Absolute 4.90 1.70 - 6.10 x10(3)/[facility] LABOR[facility] Lymph % 24.0 % [facility] Lymphocytes Abs 1.8 0.9 - 3.2 x10(3)/[facility] Monocyte % 6.8 % [facility] Monocyte Abs 0.5 0.3 - 0.9 x10(3)/[facility]OR[facility] Eos % 2.0 % [facility] Eosinophils Abs 0.2 0.0 - 0.4 x10(3)/[facility] Basophil % 0.5 % [facility] Baso Absolute 0.0 0.0 - 0.1 x10(3)/[facility] Immature Gran % 0.40 % [facility] Comment: Immature granulocytes(IG's)percentage and absolute count will include metamyelocytes, myelocytes, and promyelocytes. Blood smears from CBCs yielding IG's will be scanned manually for concordance. If this scan disagrees with the automated IG or if promyelocytes are noted, a manual differential will be performed. Immature Gran Absolute 0.03 0.00 - 0.04 x10(3)/[facility] LABORATORY Blood specimen (specimen) 04/25/2019 12:00 PM EDT 04/25/2019 12:03 PM EDT Narrative Resulting Agency Comment Spec In Lab Marcelle Weinberg [facility] HEMATOLOGY ORDERA BLES [facility] [place] [address] * (ABNORMAL) Hemogram (04/25/2019 12:00 PM EDT) White Blood Cell 7.4 4.0 - 9.5 x10(3)/mc L [facility] Red Blood Cell 4.22(L) 4.58 - 5.54 x10(6)/mc L [facility] Hemoglobin 13.7 13.7 - 16.5 gm/dL [facility] Hematocrit 41.9 40.5 - 48.5 % [facility] Mean Cell Volume 99.3(H) 82.9 - 93.1 fL [facility] Mean Cell Hemoglobin 32.5(H) 27.5 - 32.1 pg [facility] Mean Cell Hemoglobin Concentration 32.7 32.0 - 35.7 gm/dL [facility] Platelet 239 145 - 357 x10(3)/mc L [facility] RDW Standard Deviation 45.9(H) 36.0 - 45.0 fL [facility] RDW coefficient of variation 12.6 11.4 - 13.8 % [facility] Mean Platelet Volume 11.0 7.6 - 12.9 fL [facility] NRBC% auto 0.0 % [facility] NRBC Absolute 0.000 0.000 - 0.000 x10(3)/mc L [facility] Blood specimen (specimen) 04/25/2019 12:00 PM EDT 04/25/2019 12:03 PM EDT Narrative Resulting Agency Comment Spec In Lab Marcelle Weinberg MANAGER [facility] HEMATOLOGY ORDERA BLES Performing Organization Address [facility] Co de Phone Number [facility] [place] [address] * CRP, acute inflammation (04/25/2019 12:00 PM EDT) C-Reactive Protein 2.5 <=4.9 mg/L [facility] Blood specimen (specimen) 04/25/2019 12:00 PM EDT 04/25/2019 12:03 PM EDT Narrative Resulting Agency Comment Spec In Lab Marcelle Weinberg MA[facility] CHEMISTRY ORDERAB LES Performing Organization Address City/[facility]/ZIP Co de Phone Number [facility] [place] [address] * (ABNORMAL) Sedimentation rate (04/25/2019 12:00 PM EDT) Sedimentation Rate Automated 28(H) 0 - 15 mm/hr [facility] Blood specimen (specimen) 04/25/2019 12:00 PM EDT 04/25/2019 12:03 PM EDT Narrative Resulting Agency Comment Spec In Lab Marcelle Weinberg MA[facility] HEMATOLOGY ORDERA BLES [facility] [place] [address] * (ABNORMAL) Comprehensive metabolic panel (non-fasting) (04/25/2019 12:00 PM EDT) Glucose 84 65 - 199 mg/dL [facility] Comment:Diabetes: >=200 mg/d L plus symptoms Blood Urea Nitrogen 15 10 - 20 mg/dL [facility] Creatinine 1.14 0.80 - 1.50 mg/dL [facility] Sodium 140 135 - 145 mmol/L [facility] Potassium 4.8 3.5 - 5.0 mmol/L [facility] [...] - 15 mmol/L [facility] Calcium 9.8 8.5 - 10.5 mg/dL [facility] Protein, Total 8.5(H) 6.1 - 8.0 gm/dL [facility] Albumin 4.4 3.2 - 5.2 gm/dL [facility] Aspartate Aminotransferase 12 0 - 39 unit/L [facility] Alanine Aminotransferase 14 0 - 55 unit/L [facility] Alkaline Phosphatase 70 40 - 120 unit/L [facility] Bilirubin, Total 0.4 0.2 - 1.3 mg/dL [facility] Est Glomerular Filtration Rate 65 >=60 mL/min/1. 73 m?? [facility] Comment: The eGFR was calculated using the CKD-EPI equation. As with all creatinine based estimates of kidney function, eGFR values calculated with the CKD-EPI equation are not accurate in patients with acute kidney failure, extremes of body mass or the acutely ill. http://[employer]/[facility] eGFR 75 >=60 mL/min/1. 73 m?? [facility] Comment: The eGFR was calculated using the CKD-EPI equation. As with all creatinine based estimates of kidney function, eGFR values calculated with the CKD-EPI equation are not accurate in patients with acute kidney failure, extremes of body mass or the acutely ill. http://[employer]/[facility] Blood specimen (specimen) 04/25/2019 12:00 PM EDT 04/25/2019 12:03 PM EDT Narrative Resulting Agency Comment Spec In Lab Marcelle Weinberg MA[facility] CHEMISTRY ORDERAB LES Performing Organization Address City/State/[facility] Co de Phone Number [facility] [place] [address] documented in this encounter Visit Diagnoses Diagnosis Left sided colitis without complications Left sided ulcerative (chronic) colitis documented in this encounter Care Teams Bar Waiter/Waitress Relationship Specialty Start Date End Date Maximilian Fall MD [address] [place] [address] PCP - General 10/01/11 02/13/21 documented as of this encounter
--- OUTSIDE RECORDS SUMMARY | 2024-07-22 13:08 | XMS_ITS | Encounter Summary ---
Author Organization [facility] [place] [address] Care Team Providers Care Synthetic Resin Operator Name Role Phone Maximilian Fall MD Primary Care Provider [phone] Encounter Details Date Type Department Care Team (Late st Contact Info) Description 07/07/2016 Telephone [place] [address] Bethany Trivedi RN Social History Tobacco Use [...] EDT Cortifoam approved 07/07/16 until furhter notice Medina id# [id number] * Telephone Encounter - Bethany Trivedi RN - 07/07/2016 12:10 PM EDT Formulary exception form sent in for Cortifoam enemas documented in this encounter Plan of Treatment Upcoming Encounters Date Type Department Care Team (Late st Contact Info) Description 08/15/2024 9:00 AM EDT Office Visit [place] [address] Dion Barlow MD [facility] [place] [address] 09/01/2024 9:40 AM EDT Office Visit Cardiology at [address] [place] [address] Franky Shaver MD [facility] [place] [address] 09/01/2024 11:20 AM EDT Office Visit Dermatology at [place] [address] [place] [address] Gómez Mercer MD [facility] [place] [address] 09/21/2024 2:45 PM EDT Office Visit Pain [place] [address] Trung Hoyos MD [facility] [place] [address] documented as of this encounter Visit Diagnoses Not on filedocumented in this encounter Care Teams Synthetic Resin Operator Relationship Specialty Start Date End Date Maximilian Fall MD [address] [place] [address] PCP - General 10/01/11 02/13/21 documented as of this encounter
--- OUTSIDE RECORDS SUMMARY | 2024-07-22 13:08 | XMS_ITS | Encounter Summary ---
Author Organization [facility] Address [facility] [place] [id number] Care Team Providers Care Oil Gauger Name Role Phone Maximilian Fall MD Primary Care Provider [phone] Reason for Referral * Diagnostic Test (Routine) - Closed Specialty Diagnoses / Procedures Referred By Contac t Referred To Contact Radiology Diagnoses Postoperative wound abscess, initial encounter Procedures CT Retroperitoneal Abscess Drain Minnie Johnson MD [facility] [place] [address] [facility] [place] [address] Referral ID Status Reason Start Date Expiration Date V isits Requested Visits Authorized [id number] Closed Specialty Service Requested 03/22/2016 03/22/2017 1 1 Encounter Details Date Type Department Care Team (Late st Contact Info) Description 03/22/2016 [place] [address] Minnie Johnson MD [facility] [place] [address] Postoperative wound abscess, initial encounter [...] Hospital and will be transferred back to [facility] following the procedure. OSH Labs: [...] Hurtado. Minnie Johnson MD Radiology, PGY-2 Pager [phone] documented in this encounter Plan of Treatment Upcoming Encounters Date Type Department Care Team (Late st Contact Info) Description 08/15/2024 9:00 AM EDT Office [place] [address] Dion Barlow MD [facility] [place] [address] 09/01/2024 9:40 AM EDT Office Visit Cardiology at [address] [place] [address] Franky Shaver MD [facility] [place] [address] 09/01/2024 11:20 AM EDT Office Visit Dermatology at [facility] [address] [place] [address] Gómez Mercer MD [facility] DR ED[place] [address] 09/21/2024 2:45 PM EDT Office Visit Pain and Spine Center at [facility] [place] [address] Trung Hoyos MD [facility] [place] [address] documented as of this encounter Results * CT Retroperitoneal Abscess Drain (03/22/2016 12:34 PM EDT) Anatomical Region Laterality Modality Abdomen Computed Tomogra phy Narrative 03/22/2016 1:02 PM EDT VIR PROCEDURE NOTE Procedure: CT-guided RLQ?? drainage catheter placement (ACC # [id number]) Indication : 65 y.o. male with PMHx [...] Hospital and will be transferred back to [facility] following the procedure. Technique: After [...] encounter documented in this encounter Care Teams Oil Gauger Relationship Specialty Start Date End Date Maximilian Fall MD [address] [place] [address] PCP - General 10/01/11 02/13/21 documented as of this encounter
--- OUTSIDE RECORDS SUMMARY | 2024-07-22 13:08 | XMS_ITS | Encounter Summary ---
Author Organization [facility] Address [place] [id number] Care Team Providers Care Signal Engineer Name Role Phone Maximilian Fall MD Primary Care Provider [phone] Reason for Referral * Diagnostic Test (Routine) - Closed Specialty Diagnoses / Procedures Referred By Contac t Referred To Contact Radiology Diagnoses Postoperative wound abscess, initial encounter Procedures CT Retroperitoneal Abscess Drain Minnie Johnson MD [facility] [place] [address] [facility] [place] [address] Referral ID Status Reason Start Date Expiration Date V isits Requested Visits Authorized [id number] Closed Specialty Service Requested 03/22/2016 03/22/2017 1 1 Reason for Visit * Diagnostic Test (Routine) - Closed Specialty Diagnoses / Procedures Referred By Contac t Referred To Contact Radiology Diagnoses Postoperative wound abscess, initial encounter Procedures CT Retroperitoneal Abscess Drain Minnie Johnson MD [facility] [place] [address] [facility] [place] [address] Referral ID Status Reason Start Date Expiration Date V isits Requested Visits Authorized [id number] Closed Specialty Service Requested 03/22/2016 03/22/2017 1 1 Encounter Details Date Type Department Care Team (Latest Contact Info) Description 03/22/2016 10:40 AM EDT - 03/22/2016 11:59 PM EDT Hospital [place] [address] Shireen Hurtado MD [facility] [place] [address] Postoperative wound abscess, initial encounter Discharge Disposition: [...] is during regular office hours, please call [phone]. If it is after regular office hours, or on weekends or holidays, please call [phone] and ask to speak to the Interlibrary Loan Specialist technical documentation specialist for Interventional Radiology. You have received medication [...] Hospital and will be transferred back to [facility] following the procedure. Addendum: The patient's [...] visible) Minnie Johnson MD Radiology, PGY-2 Pager [phone] * Danyell Doyle RN - 03/22/2016 10:29 AM EDT [facility] N[facility] DATABASE Name: NAYA RODRIGUEZ Date of : 1950 AGE 65 y.o. Address: [address] [place] [phone] (home) Mobile: Telephone Information: Referring Provider: Minnie [...] COLONOSCOPY, DIAGNOSTIC performed by Dion OSULLIVAN at [facility] ??? Pro sigmoidoscopy, diagnostic 03/16/2012 FLEXIBLE SIGMOIDOSCOPY performed by YUDI MALLOY at [facility] ??? Upper gi endoscopy, exam 10/01/2012 UPPER GI ENDOSCOPY performed by Dion OSULLIVAN at [facility] ??? Pro colonoscopy, diagnostic 07/13/2014 COLONOSCOPY, DIAGNOSTIC performed by Dion Osullivan MD at [facility] Date/Procedure Med's given/comments No previous [...] CT-guided RLQ drainage catheter placement (acc # [id number]) Indication : 65 y.o. male with PMHx significant for asthma, diabetes, and ulcerative colitis who isstatus post laparoscopic appendectomy on 03/13/2016 who noted RLQ pain several days post-op. He presented to [facility] ED and underwent a CT scan with findings consistent with RLQ abscess. We have been consulted for CT guided abscess drain placement. The patient has beenadmitted to [facility] and will be transferred back to [facility] following the procedure. . Technique: After [...] 9:00 AM EDT Office [place] [address] Dion Osullivan MD [facility] [place] [place] [address] 09/01/2024 9:40 AM EDT Office Visit Cardiology at [address] [place] [address] Franyk Shaver MD [facility] [place] [place] [address] 09/01/2024 11:20 AM EDT Office Visit Dermatology at [facility] [address] [place] [address] Gómez Mercer MD [facility] [place] [address] 09/21/2024 2:45 PM EDT Office Visit Pain and Spine Center at [place] [address] Trung Hoyso MD [facility] [place] [address] documented as of this encounter Procedures Procedure [...] CT-guided RLQ?? drainage catheter placement (ACC # [id number]) Indication : 65 y.o. male with PMHx [...] Hospital and will be transferred back to [facility] following the procedure. Technique: After discussing [...] Anaerobic Culture No anaerobic organisms isolated [facility] Specimen from abscess (specimen) [place] / Unknown 03/22/2016 10:54 AM EDT 03/22/2016 12:52 PM EDT Comment:RLQ PAIN SEVERAL DAY S POST-OP. HE PRESENTED TO [facility] ED AND UNDERWENT A CT SCAN WITH FINDINGS CONSISTENT WITH RLQ ABSCESS. S/P APPY. Narrative Resulting Agency Comment Spec In Lab Shireen Hurtado MD MICROBIOLOGY - GENER AL ORDERABLES Performing Organization Address City/[facility]/ZIP Co de Phone Number [facility] [address] * (ABNORMAL) Wound Aspirate/Abscess Culture (03/22/2016 10:54 AM EDT) Abscess/Wound Aspirate Culture Many Escherichia coli(A) [facility] Gram Stain Many White Blood Cells seen Many Gram Negative Rods seen (A) [facility] Organism Escherichia coli(A) [facility] Organism Gram Negative Rods(A) [facility] Specimen from abscess (specimen) [place] / Unknown 03/22/2016 10:54 AM EDT 03/22/2016 12:52 PM EDT Comment:RLQ PAIN SEVERAL DAY S POST-OP. HE PRESENTED TO [facility] ED AND UNDERWENT A CT SCAN WITH [...] ORDERABLES Performing Organization Address [facility]/ZIP Co de Phone Number [facility] [place] [address] documented in this encounter Visit Diagnoses Diagnosis [...] mL/hr documented in this encounter Care Teams Signal Engineer Relationship Specialty Start Date End Date Maximilian Fall MD [address] [facility] [place] [address] PCP - General 10/01/11 02/13/21 documented as of this encounter
--- OUTSIDE RECORDS SUMMARY | 2024-07-22 13:08 | XMS_ITS | Encounter Summary ---
Author Organization [facility] Address [facility] [place] [address] Care Team Providers Care Corporate Receptionist Name Role Phone Maximilian Fall MD Primary Care Provider [phone] Reason for Visit * Reason Comments Follow-up Encounter Details Date Type Department Care Team (Late st Contact Info) Description 05/16/2016 10:30 AM EDT Office [place] [address] Dion Barlow MD [facility] [place] [address] Other ulcerative colitis with complication Social History [...] months. 10 min of this 15 min vklx-ti-[id number] visit was spent counseling the patient in the issues outlined above. Davina Barlow MD Distribution Technicianstile ripsaw operator Section of Gastroenterology [place] [address] documented in this encounter Plan of Treatment Upcoming Encounters Date Type Department Care Team (Late st Contact Info) Description 08/15/2024 9:00 AM EDT Office [place] [address] Dion Barlow MD [facility] [place] [address] 09/01/2024 9:40 AM EDT Office Visit Cardiology at [address] [place] [address] Franky Shaver MD [facility] [place] [address] 09/01/2024 11:20 AM EDT Office Visit Dermatology at [facility] [address] [place] [address] Gómez Mercer MD [facility] [place] [address] 09/21/2024 2:45 PM EDT Office Visit [place] [address] Trung Hoyos MD [facility] [place] [address] documented as of this encounter Visit Diagnoses Diagnosis Other ulcerative colitis with complication documented in this encounter Care Teams Corporate Receptionist Relationship Specialty Start Date End Date Maximilian Fall MD [address] [facility] [place] [address] PCP - General 10/01/11 02/13/21 documented as of this encounter
--- OUTSIDE RECORDS SUMMARY | 2024-07-22 13:08 | XMS_ITS | Encounter Summary ---
Author Organization [facility] [place] [address] Care Team Providers Care China And Silverware Salesperson Name Role Phone Maximilian Fall MD Primary Care Provider Reason for Visit * Reason Onset Date Comments Prior Authorization 05/10/2018 Encounter Details Date Type Department Care Team (Late st Contact Info) Description 05/10/2018 Telephone [place] [address] Jarret Roa boatwright Social History Tobacco Use Types Packs/Day Years [...] x 4 weeks Insurance & Phone #: [employer] Part D ID #: [id number] Trialed (dosage, frequency): hydrocortisone enemas (causes nausea), sulfasalazine, canasa (caused pelvic pain), cortifoam (manufacturing shortage), Asacol, Rowasa, prednisone Diagnosis/ICD-10: 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 Notes: Submitted via CoverMyMeds Approved documented in this encounter Plan of Treatment Upcoming Encounters Date Type Department Care Team (Late st Contact Info) Description 08/15/2024 9:00 AM EDT Office Visit G[place] [address] Dion Barlow MD [facility] [place] [address] 09/01/2024 9:40 AM EDT Office Visit Cardiology at [address] [phone] Franky Shaver MD [facility] [place] [address] 09/01/2024 11:20 AM EDT Office Visit Dermatology at [place] [address] [place] [phone] Gómez Mercer MD [facility] [address] 09/21/2024 2:45 PM EDT Office Visit [facility] [phone] Trung Hoyos MD [facility] [place] [address] documented as of this encounter Visit Diagnoses Not on filedocumented in this encounter Care Teams [employer] Silver[employer] Salesperson Relationship Specialty Start Date End Date Maximilian Fall MD [address] [facility] [address] [place] [address] PCP - General 10/01/11 02/13/21 documented as of this encounter
--- OUTSIDE RECORDS SUMMARY | 2024-07-22 13:08 | XMS_ITS | Encounter Summary ---
Author Organization [facility] Address [facility] [place] [address] Care Team Providers Care Manager Personal Name Role Phone Maximilian Fall MD Primary Care Provider [phone] Encounter Details Date Type Department Care Team (Latest Contact Info) Description 02/22/2019 2:13 PM EDT - 02/22/2019 5:26 PM EDT Hospital En[place] [address] Dion Barlow MD [facility] [place] [address] Discharge Disposition: Home Social History Tobacco Use [...] - 02/22/2019 5:05 PM EDT Please call [phone] before 8pm Mon-Fri with problems, questions or concerns. If you call after 8pm or on weekends, call the Hospital at [phone] and ask to speak to the Inbound Ingredient Logistics Specialist ship's electronic warfare officer and the anodizing line operator will contact that person for you. * Attachments The following attachments cannot be sent through Care Everywhere. * Colonoscopy: Post-op (Citizen [place]) * Colon Polyps ([place]izen [place]) documented in this encounter Medications at Time [...] 9:00 AM EDT Office [place] [address] Dion Barlow MD [facility] [place] [address] 09/01/2024 9:40 AM EDT Office Visit Cardiology at [address] [place] [address] Franky Shaver MD [facility] [place] [address] 09/01/2024 11:20 AM EDT Office Visit Dermatology at [facility] [address] [place] [address] Gómez Mercer MD [facility] DR [place] [address] 09/21/2024 2:45 PM EDT Office Visit [facility] [place] [phone] Trung Hoyos MD [facility] [place] [address] documented as of this encounter Procedures Procedure [...] PM EDT 02/22/2019 4:56 PM EDT Narrative [facility] - 02/22/2019 4:56 PM EDT Specimen requisition ordered. ??Separate Pathology report to follow L Karthik Barlow MD PATHOLOGY/CYTOLOGY O RDMELISSA Performing Organization Address [facility]/[place] [address] * Specimen to Pathology (02/22/2019 4:56 PM EDT) AP Specimen 02/22/2019 4:56 PM EDT 02/22/2019 4:56 PM EDT Narrative [facility] - 02/22/2019 4:56 PM EDT Specimen requisition ordered. ??Separate Pathology report to follow L Karthik Barlow MD PATHOLOGY/CYTOLOGY O RDERABLES Performing Organization Address City/[facility]/[place] [address] * Specimen to Pathology (02/22/2019 4:56 PM EDT) AP Specimen 02/22/2019 4:56 PM EDT 02/22/2019 4:56 PM EDT Narrative [facility] - 02/22/2019 4:56 PM EDT Specimen requisition ordered. ??Separate Pathology report to follow L Karthik Barlow MD PATHOLOGY/CYTOLOGY O RDERAOMAR [facility] [place] [address] * Specimen to Pathology (02/22/2019 4:56 PM EDT) AP Specimen 02/22/2019 4:56 PM EDT 02/22/2019 4:56 PM EDT Narrative [facility] - 02/22/2019 4:56 PM EDT Specimen requisition ordered. ??Separate Pathology report to follow L Karthik Barlow MD PATHOLOGY/CYTOLOGY O CEE Performing Organization Address [facility]/[place] [address] * Specimen to Pathology (02/22/2019 4:56 PM EDT) AP Specimen 02/22/2019 4:56 PM EDT 02/22/2019 4:56 PM EDT Narrative [facility] - 02/22/2019 4:56 PM EDT Specimen requisition ordered. ??Separate Pathology report to follow L Karthik Barlow MD PATHOLOGY/CYTOLOGY O CEE Performing Organization Address [facility]/[place] [address] * Specimen to Pathology (02/22/2019 4:56 PM EDT) AP Specimen 02/22/2019 4:56 PM EDT 02/22/2019 4:56 PM EDT Narrative [facility] - 02/22/2019 4:56 PM EDT Specimen requisition ordered. ??Separate Pathology report to follow L Karthik Barlow MD PATHOLOGY/CYTOLOGY O CEE Performing Organization Address [facility] [place] [address] * Specimen to Pathology (02/22/2019 4:56 PM EDT) AP Specimen 02/22/2019 4:56 PM EDT 02/22/2019 4:56 PM EDT Narrative [facility] - 02/22/2019 4:56 PM EDT Specimen requisition ordered. ??Separate Pathology report to follow L Karthik Barlow MD PATHOLOGY/CYTOLOGY O CEE Performing Organization Address [facility] [place] [address] * Specimen to Pathology (02/22/2019 4:56 PM EDT) AP Specimen 02/22/2019 4:56 PM EDT 02/22/2019 4:56 PM EDT Narrative [facility] - 02/22/2019 4:56 PM EDT Specimen requisition ordered. ??Separate Pathology report to follow L Karthik Barlow MD PATHOLOGY/CYTOLOGY O CEE Performing Organization Address [facility] [place] [address] * Surgical Pathology Report (02/22/2019 4:23 PM EDT) Final Diagnosis [id number] ? Location: 4T; EA06; A The signing [...] Tucker MD Verified: ??02/26/2019 ?Pathologist Performed at: ??-[facility] Dept. [place]ology, [place], [place] CLINICAL INFORMATION Specimen Submitted: A - [...] labeled H1-H2. ??apb 02/26/2019 4:24 PM EDT [facility] GI Biopsy 02/22/2019 4:23 [...] EDT 02/22/2019 4:23 PM EDT L Karthik aBrlow MD PATHOLOGY/CYTOLOGY O RDERABLES [facility] [place] [address] * COLONOSCOPY (02/22/2019 3:57 PM EDT) COLONOSCOPY [facility] Endoscopy ___ Procedure Date: 02/22/2019 3:57 PM ? Patient Name: Brian Rodriguez ? Date of : 1950 ? Age: 68 ? Order #: [id number] ? Instrument Name: [id number] ? ___ Procedure: ? Colonoscopy Indications: ? High risk colon cancer surveillance: ? Ulcerative colitis Patient Profile: ? This is a 68 year old male. This ? patient has left-sided ulcerative ? colitis, is taking sulfasalazine and ? cortenemas and is experiencing mild ? symptoms. Providers: ? Dion. Karthik Barlow MD, Alannah Snigletary, ? RN, Anita Davis Referring : ?Maximilian [...] preparation was evaluated using ? the BBPS ([place] Bowel Preparation ? Scale) with scores of: [...] GENERAL SURGICAL ORD ERABLES Performing Organization Address City/State/[facility] [...] documented in this encounter Care Teams Manager Personal Relationship Specialty Start Date End Date Maximilian Fall MD [address] [place] [address] PCP - General 10/01/11 02/13/21 documented as of this encounter
--- OUTSIDE RECORDS SUMMARY | 2024-07-22 13:08 | XMS_ITS | Encounter Summary ---
Author Organization [facility] Address [facility] [place] [address] Care Team Providers Care Welder/Installer Name Role Phone Maximilian Fall MD Primary Care Provider [phone] Encounter Details Date Type Department Care Team (Late st Contact Info) Description 02/12/2017 11:15 AM EDT - 02/12/2017 12:00 PM EDT Surgery [place] [address] Dion Barlow MD [facility] [place] [address] COLONOSCOPY FLEXIBLE, WITH BX (WRVU 3.56) Social [...] - 02/12/2017 12:37 PM EDT Please call [phone] before 8pm with problems, questions or concerns, after 5pm call the Hospital at [phone] and ask to speak to the Armored Machine Operator assistant commissioner and the jigger operator will contact that person for you. [...] sent through Care Everywhere. * COLONOSCOPY: POST-OP ([place]) documented in this encounter Medications at Time [...] AM EDT Office Visit [place] [phone] Dion Barlow MD [facility] [place] [address] 09/01/2024 9:40 AM EDT Office Visit Cardiology at [address] [place] [phone] Franky Shaver MD [facility] [place] [address] 09/01/2024 11:20 AM EDT Office Visit Dermatology at [facility] [address] [place] [phone] Gómez Mercer MD [facility] DR [place] [address] 09/21/2024 2:45 PM EDT Office Visit [facility] [place] [address] Trung Hoyos MD [facility] [place] [address] documented as of this encounter Procedures Procedure [...] Organization Address City/[facility]/[place] [address] * Specimen to Pathology (surgical or derm) (02/12/2017 12:16 PM EDT) AP Specimen 02/12/2017 12:1 6 PM EDT 02/12/2017 12:16 PM EDT Narrative [facility] - 02/12/2017 12:16 PM EDT Specimen requisition ordered. ??Separate Pathology report to follow L Karthik Barlow MD PATHOLOGY/CYTOLOGY O CEE Performing Organization Address City/[facility]/[place] [address] * Specimen to Pathology (surgical or derm) (02/12/2017 12:16 PM EDT) AP Specimen 02/12/2017 12:1 6 PM EDT 02/12/2017 12:16 PM EDT [facility] - 02/12/2017 12:16 PM EDT Specimen requisition ordered. ??Separate Pathology report to follow L Karthik Barlow MD PATHOLOGY/[place] [address] * Specimen to Pathology (surgical or derm) (02/12/2017 12:16 PM EDT) AP Specimen 02/12/2017 12:1 6 PM EDT 02/12/2017 12:16 PM EDT Narrative [facility] - 02/12/2017 12:16 PM EDT Specimen requisition ordered. ??Separate Pathology report to follow L Karthik Barlow MD PATHOLOGY/CYTOLOGY Ozzie MIKE [facility] [place] [address] * Surgical Pathology Report (02/12/2017 12:15 PM EDT) Final Diagnosis [id number] ?Location: 4T; EA07; A The signing pathologist [...] [facility] [place] [address] * COLONOSCOPY (02/12/2017 11:40 AM EDT) COLONOSCOPY [facility] Endoscopy ___ Procedure Date: 02/12/2017 11:40 AM ? Patient Name: Brian Rodriguez ? Date of : 1950 ? Age: 66 ? Order #: [id number] ? Instrument Name: [id number] ? ___ Procedure: ? Colonoscopy Indications: ? High risk colon cancer surveillance: ? Ulcerative colitis Patient Profile: ? This is a 66 year old male. This ? patient has left-sided ulcerative ? colitis on sulfasalazine and ? Cortifoam and is experiencing mild ? symptoms. Providers: ? L. Karthik Barlow MD, Vandana Love ? RONY Mckeon, [facility], ? Campus Administrative Assistant Referring MD: ?Maximilian Fall MD Medicines: [...] preparation was evaluated using ? the BBPS ([place] Bowel Preparation ? Scale) with scores of: [...] GENERAL SURGICAL ORD ERABLES Performing Organization Address City/[facility]/ZIP Co de Phone Number PROVATION * POCT [...] CARE TEST O RDMELISSA Performing Organization Address [facility] Co de Phone Number [facility] [place] [address] documented in this encounter Visit Diagnoses Diagnosis [...] RN) documented in this encounter Care Teams Welder/Installer Relationship Specialty Start Date End Date Maximilian Fall MD [address] [place] [address] PCP - General 10/01/11 02/13/21 documented as of this encounter
--- OUTSIDE RECORDS SUMMARY | 2024-07-22 13:08 | XMS_ITS | Encounter Summary ---
Author Organization [facility] [place] [address] Care Team Providers Care Rust Proofer Name Role Phone Maximilian Fall MD Primary Care Provider [phone] Encounter Details Date Type Department Care Team (Late st Contact Info) Description 07/07/2016 Telephone [place] [phone] Bethany Trivedi RN Social History Tobacco Use [...] 9:00 AM EDT Office [place] [address] Dion Barlow MD [facility] [place] [address] 09/01/2024 9:40 AM EDT Office Visit Cardiology at [address] [phone] Franky Shaver MD [facility] [place] [address] 09/01/2024 11:20 AM EDT Office Visit Dermatology at [facility] [address] [place] [address] Gómez Mercer MD [facility] DR [place] [address] 09/21/2024 2:45 PM EDT Office Visit [facility] [place] [phone] Trung Hoyos MD [facility] [place] [address] documented as of this encounter Results * C. Difficile Screen (07/18/2016 2:32 PM EDT) C Diff Interp Negative Negative [facility] Comment: C. diff ??Negative [...] GENER AL ORDERABLES Performing Organization Address [facility]/ZIP Co de Phone Number [facility] [place] [address] * (ABNORMAL) Sedimentation rate (07/14/2016 12:21 PM EDT) Sedimentation Rate Automated 17(H) 0 - 15 mm/hr [facility] Blood specimen (specimen) 07/14/2016 12:21 PM EDT 07/14/2016 12:29 PM EDT Narrative Resulting Agency Comment Spec In Lab L Karthik Barlow MD HEMATOLOGY ORDERABLE S Performing Organization Address [facility] Co de Phone Number [facility] [place] [address] * Comprehensive metabolic panel (non-fasting) (07/14/2016 12:21 PM EDT) Glucose 147 65 - 199 mg/dL [facility] Comment:Diabetes: >=200 mg/d L plus symptoms Blood Urea Nitrogen 17 10 - 20 mg/dL [facility] Creatinine 1.04 0.80 - 1.50 mg/dL [facility] Comment: Please note that the pediatric reference intervals supplied above were not validated at [facility]. Results from pediatric patients should be interpreted in conjunction to the patient's age, height and muscle mass. Sodium 140 135 - 145 mmol/L [facility] Potassium 4.6 3.5 - 5.0 mmol/L [facility] Comment: Please note: ??Patients with WBC >100,000 may have falsely elevated Potassium levels. ??For accurate Potassium quantification in these patients send serum separator tube (gold top) for subsequent determinations. ??Contact the Clinical Chemistry Laboratory if there are any questions. Chloride 102 98 - 107 mmol/L [facility] Carbon Dioxide 25 22 - 31 mmol/L [facility] Anion Gap 13 5 - 15 mmol/L [facility] Calcium 9.7 8.5 - 10.5 mg/dL [facility] Protein, Total 7.9 6.1 - 8.0 gm/dL [facility] Albumin 4.4 3.2 - 5.2 gm/dL [facility] Aspartate Aminotransferase 15 0 - 39 unit/L [facility] Alanine Aminotransferase 20 0 - 55 unit/L [facility] Alkaline Phosphatase 65 40 - 120 unit/L [facility] Bilirubin, Total 0.4 0.2 - 1.3 mg/dL [facility] Bilirubin, Direct 0.1 0.0 - 0.3 mg/dL [facility] Est Glomerular [...] the following links into your internet browser. [email or web address] Blood specimen (specimen) 07/14/2016 12:21 PM EDT 07/14/2016 12:29 PM EDT Narrative Resulting Agency Comment Spec In Lab L Karthik Barlow MD CHEMISTRY ORDERABLES [facility] [place] [address] * High Sensitivity CRP (07/14/2016 12:21 PM EDT) C-Reactive Protein High Sensitivity 4.8 mg/L [facility] Comment: Interpretations: 1) For accurate [...] Lab L Karthik Barlow MD CHEMISTRY ORDERABLES [facility] [place] [id number] documented in this encounter Visit Diagnoses Diagnosis Chronic ulcerative enterocolitis, unspecified complication 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
--- OUTSIDE RECORDS SUMMARY | 2024-07-22 13:08 | XMS_ITS | Encounter Summary ---
Author Organization [facility] Address [facility] [place] [address] Care Team Providers Care Resort Keeper Name Role Phone Maximilian Fall MD Primary Care Provider [phone] Encounter Details Date Type Department Care Team (Latest Contact Info) Description 11/02/2018 1:00 PM EST Office Visit [place] [address] Marcelle Weinberg APRN [facility] [place] [address] Left sided colitis without complications Social History [...] ? Overview Note:? Colonoscopy 04/08/10 (Dr. Gomes [facility]) - inflammation only within the [...] he underwent left inguinal hernia repair at [facility] 2 weeks ago. Once he was [...] 3.66) performed by Dion Osullivan MD at [facility] ENDOSCOPY ??? PRO COLONOSCOPY, DIAGNOSTIC 11/27/2011 COLONOSCOPY, DIAGNOSTIC performed by Dion OSULLIVAN at [facility] ENDOSCOPY ??? PRO COLONOSCOPY, DIAGNOSTIC 07/13/2014 COLONOSCOPY, DIAGNOSTIC performed by Dion Osullivan MD at [facility] ENDOSCOPY ??? PRO SIGMOIDOSCOPY, DIAGNOSTIC 03/16/2012 FLEXIBLE SIGMOIDOSCOPY performed by YUDI MALLOY at [facility] ENDOSCOPY ??? UPPER GI ENDOSCOPY, EXAM 10/01/2012 UPPER GI ENDOSCOPY performed by Dion OSULLIVAN at [facility] ENDOSCOPY Social History Socioeconomic History ??? [...] AM EDT Office Visit [place] [address] Dion Osullivan MD [facility] [address] 09/01/2024 9:40 AM EDT Office Visit Cardiology at [address] [place] [phone] Franky Shaver MD [facility] [place] [address] 09/01/2024 11:20 AM EDT Office Visit Dermatology at [facility] [address] [place] [address] Gómez Mercer MD [facility] [place] [address] 09/21/2024 2:45 PM EDT Office Visit [facility] [place] [address] Trung Hoyos MD [facility] [place] [address] documented as of this encounter Procedures Procedure [...] Automated (11/02/2018 2:35 PM EST) Pathologist [facility] Neutrophil % 61.6 % [facility] Neutrophil Absolute 4.08 1.70 - 6.10 x10(3)/[facility] Lymph % 27.2 % [facility] Lymphocytes Abs 1.8 0.9 - 3.2 x10(3)/[facility] Monocyte % 6.9 % [facility] Monocyte Abs 0.5 0.3 - 0.9 x10(3)/[facility] Eos % 2.9 % [facility] Eosinophils Abs 0.2 0.0 - 0.4 x10(3)/[facility] Basophil % 0.8 % [facility] Baso Absolute 0.0 0.0 - 0.1 x10(3)/[facility] Immature Gran % 0.60 % [facility] Comment: Immature granulocytes(IG's)percentage and absolute count will include metamyelocytes, myelocytes, and promyelocytes. Blood smears from CBCs yielding IG's will be scanned manually for concordance. If this scan disagrees with the automated IG or if promyelocytes are noted, a manual differential will be performed. Immature Gran Absolute 0.04 0.00 - 0.04 x10(3)/[facility] Blood specimen (specimen) 11/02/2018 2:35 PM EST 11/02/2018 2:42 PM EST Narrative Resulting Agency Comment Spec In Lab Marcelle Weinberg SSAS DEVELOPER HEMATOLOGY ORDERA BLES [facility] [place] [address] * (ABNORMAL) Hemogram (11/02/2018 2:35 PM EST) Pathologist [facility] White Blood Cell 6.6 4.0 - 9.5 x10(3)/[facility] LABORATORY Red Blood Cell 4.08(L) 4.58 - 5.54 x10(6)/mc L [facility] Hemoglobin 13.1(L) 13.7 - 16.5 gm/dL [facility] Hematocrit 40.0(L) 40.5 - 48.5 % [facility] Mean Cell Volume 98.0(H) 82.9 - 93.1 fL [facility] Mean Cell Hemoglobin 32.1 27.5 - 32.1 pg [facility] Mean Cell Hemoglobin Concentration 32.8 32.0 - 35.7 gm/dL [facility] Platelet 236 145 - 357 x10(3)/[facility] LABORATORY RDW Standard Deviation 44.3 36.0 - 45.0 [facility] LABORATORY RDW coefficient of variation 12.3 11.4 - 13.8 % [facility] Mean Platelet Volume 10.6 7.6 - 12.9 [facility] LAB[facility]ORY NRBC% auto 0.0 % [facility] NRBC Absolute 0.000 0.000 - 0.000 x10(3)/[facility] Blood specimen (specimen) 11/02/2018 2:35 PM EST 11/02/2018 2:42 PM EST Narrative Resulting Agency Comment Spec In Lab Marcelle Weinberg SSAS DEVELOPER HEMATOLOGY ORDERA BLES [facility] [place] [address] * (ABNORMAL) CRP, acute inflammation (11/02/2018 2:35 PM EST) [facility] C-Reactive Protein 5.0(H) <=4.9 mg/L [facility] Blood specimen (specimen) 11/02/2018 2:35 PM EST 11/02/2018 2:42 PM EST Narrative Resulting Agency Comment Spec In Lab Marcelle Weinberg SSAS DEVELOPER CHEMISTRY ORDERAB LES Performing Organization Address City/[facility]/ZIP Co de Phone Number [facility] [place] [address] * (ABNORMAL) Sedimentation rate (11/02/2018 2:35 PM EST) Sedimentation Rate Automated 27(H) 0 - 15 mm/hr [facility] Blood specimen (specimen) 11/02/2018 2:35 PM EST 11/02/2018 2:42 PM EST Narrative Resulting Agency Comment Spec In Lab Marcelle Weinberg SSAS DEVELOPER HEMATOLOGY ORDERA BLES Performing Organization Address [facility] Co de Phone Number [facility] [place] [address] * (ABNORMAL) Comprehensive metabolic panel (non-fasting) (11/02/2018 2:35 PM EST) Glucose 87 65 - 199 mg/dL [facility] Comment:Diabetes: >=200 mg/d L plus symptoms Blood Urea Nitrogen 15 10 - 20 mg/dL [facility] Creatinine 1.03 0.80 - 1.50 mg/dL [facility] Sodium 140 135 - 145 mmol/L [facility] Potassium 4.3 3.5 - 5.0 mmol/L [facility] Comment: Please note: ??Patients with WBC >100,000 may have falsely elevated Potassium levels. ??For accurate Potassium quantification in these patients send serum separator tube (gold top) for subsequent determinations. ??Contact the Clinical Chemistry Laboratory if there are any questions. Chloride 103 98 - 107 mmol/L [facility] Carbon Dioxide 26 22 - 31 mmol/L [facility] Anion Gap 11 5 - 15 mmol/L [facility] Calcium 9.7 8.5 - 10.5 mg/dL [facility] Protein, Total 8.1(H) 6.1 - 8.0 gm/dL [facility] Albumin 4.0 3.2 - 5.2 gm/dL [facility] Aspartate Aminotransferase 12 0 - 39 unit/L [facility] Alanine Aminotransferase 14 0 - 55 unit/L [facility] Alkaline Phosphatase 73 40 - 120 unit/L [facility] Bilirubin, Total 0.4 0.2 - 1.3 mg/dL [facility] Est Glomerular Filtration Rate 73 >=60 mL/min/1. 73 m?? [facility] Comment: The eGFR was calculated using the CKD-EPI equation. As with all creatinine based estimates of kidney function, eGFR values calculated with the CKD-EPI equation are not accurate in patients with acute kidney failure, extremes of body mass or the acutely ill. [email or web address] eGFR 85 >=60 mL/min/1. 73 m?? [facility] Comment: The eGFR was calculated using the CKD-EPI equation. As with all creatinine based estimates of kidney function, eGFR values calculated with the CKD-EPI equation are not accurate in patients with acute kidney failure, extremes of body mass or the acutely ill. [email or web address] Blood specimen (specimen) 11/02/2018 2:35 PM EST 11/02/2018 2:42 PM EST Narrative Resulting Agency Comment Spec In Lab Marcelle Weinberg SSAS DEVELOPER CHEMISTRY ORDERAB LES [facility] [place] [address] documented in this encounter Visit Diagnoses Diagnosis Left sided colitis without complications Left sided ulcerative (chronic) colitis documented in this encounter Care Teams Resort Keeper Relationship Specialty Start Date End Date Maximilian Fall MD [address] [place] [address] PCP - General 10/01/11 02/13/21 documented as of this encounter
--- OUTSIDE RECORDS SUMMARY | 2024-07-22 13:08 | XMS_ITS | Encounter Summary ---
Author Organization [facility] [address] Care Team Providers Care Supervisor Commissary Production Name Role Phone Maximilian Fall MD Primary Care Provider [phone] Encounter Details Date Type Department Care Team (Late st Contact Info) Description 11/02/2018 Telephone [place] [address] Marcelle Weinberg, WATER METER INSTALLER [facility] [place] [address] Social History Tobacco Use Types Packs/Day Years [...] Notes * Telephone Encounter - Marcelle Weinberg, WATER METER INSTALLER - 11/02/2018 5:27 PM EST I called [...] 9:00 AM EDT Office [place] [address] Dion Barlow MD [facility] [place] [address] 09/01/2024 9:40 AM EDT Office Visit Cardiology at [address] [address] Franky Shaver MD [facility] [place] [address] 09/01/2024 11:20 AM EDT Office Visit Dermatology at [facility] [address] [place] [address] Gómez Mercer MD [facility] [place] [address] 09/21/2024 2:45 PM EDT Office Visit [facility] [place] [address] Trung Hoyos MD [facility] [place] [address] documented as of this encounter Visit Diagnoses Not on filedocumented in this encounter Care Teams Supervisor Commissary Production Relationship Specialty Start Date End Date Maximilian Fall MD [address] [place] [address] PCP - General 10/01/11 02/13/21 documented as of this encounter
--- OUTSIDE RECORDS SUMMARY | 2024-07-22 13:08 | XMS_ITS | Encounter Summary ---
Author Organization [facility] [place] [address] Care Team Providers Care Paper Tube Grader Name Role Phone Maximilian Fall MD Primary Care Provider [phone] Encounter Details Date Type Department Care Team (Late st Contact Info) Description 03/26/2018 Telephone [place] [address] Bethany Trivedi, RN Social History Tobacco Use [...] difficulty getting Cortifoam because it is on repair mechanic back order. Has been diarrhea and bleeding [...] 9:00 AM EDT Office [place] [address] Dion Barlow MD [facility] [place] [address] 09/01/2024 9:40 AM EDT Office Visit Cardiology at [address] [phone] Franky Shaver MD [facility] [place] [address] 09/01/2024 11:20 AM EDT Office Visit Dermatology at [address] [place] [place] [address] Gómez Mercer MD [facility] [place] [address] 09/21/2024 2:45 PM EDT Office Visit [place] [address] Trung Hoyos MD [facility] [place] [address] documented as of this encounter Visit Diagnoses Not on filedocumented in this encounter Care Teams Paper Tube Grader Relationship Specialty Start Date End Date Maximilian Fall MD [address] [facility] [address] [facility] [place] [address] PCP - General 10/01/11 02/13/21 documented as of this encounter
--- OUTSIDE RECORDS SUMMARY | 2024-07-22 13:08 | XMS_ITS | Encounter Summary ---
Author Organization [facility] Address [facility] [place] [address] Care Team Providers Care Brickmason Supervisor Name Role Phone Maximilian Fall MD Primary Care Provider [phone] Reason for Visit * Reason Comments Follow-up Encounter Details Date Type Department Care Team (Latest Contact Info) Description 11/10/2016 8:30 AM EST [place] [address] Dion Barlow MD [facility] [place] [address] Ulcerative rectosigmoiditis with rectal bleeding Social History [...] months. 20 min of this 25 min [id number] visit was spent counseling the patient in the issues outlined above. Davina Barlow MD Detailer Furniturewellfield technician Section of Gastroenter[place] [address] documented in this encounter Plan of Treatment Upcoming Encounters Date Type Department Care Team (Late st Contact Info) Description 08/15/2024 9:00 AM EDT Office [place] [address] Dion Barlow MD [facility] [place] [address] 09/01/2024 9:40 AM EDT Office Visit Cardiology at [address] [phone] Franky Shaver MD [facility] [address] 09/01/2024 11:20 AM EDT Office Visit Dermatology at [facility] [address] [place] [address] Gómez Mercer MD [facility] DR EDDIE [place] [address] 09/21/2024 2:45 PM EDT Office Visit Pain and Spine Center at [facility] [place] [address] Trung Hoyos MD [facility] [place] [address] Scheduled Orders Name Type Priority Associated Diagnoses Orde r Schedule COLONOSCOPY Procedures Routine Ulcerative rectosigmoiditis with rectal bleeding Ordered: 11/10/2016 documented as of this encounter Visit Diagnoses Diagnosis Ulcerative rectosigmoiditis with rectal bleeding documented in this encounter Care Teams Brickmason Supervisor Relationship Specialty Start Date End Date Maximilian Fall MD [address] [place] [address] PCP - General 10/01/11 02/13/21 documented as of this encounter
--- OUTSIDE RECORDS SUMMARY | 2024-07-22 13:08 | XMS_ITS | Encounter Summary ---
Author Organization [facility] [place] [address] Care Team Providers Care Plaster Foreman Name Role Phone Maximilian Fall MD Primary Care Provider [phone] Reason for Visit * Reason Onset Date Comments Medication Refill 03/26/2018 Encounter Details Date Type Department Care Team (Late st Contact Info) Description 03/26/2018 [place] [address] Bethany Trivedi RN Social History Tobacco Use [...] Miscellaneous Notes * Addendum Note - Bethany Trivedi, RN - 03/26/2018 4:36 PM EDTAddended by: BETHANY TRIVEDI on: 03/26/2018 04:36 PM Modules accepted: Orders documented in this encounter Plan of Treatment Upcoming Encounters Date Type Department Care Team (Late st Contact Info) Description 08/15/2024 9:00 AM EDT Office [place] [phone] Dion Barlwo MD [facility] [place] [address] 09/01/2024 9:40 AM EDT Office Visit Cardiology at [address] [place] [address] Franky Shaver MD [facility] [place] [address] 09/01/2024 11:20 AM EDT Office Visit Dermatology at [facility] [address] [place] [address] Gómez Mercer MD [facility] [place] [address] 09/21/2024 2:45 PM EDT Office Visit [place] [address] Trung Hoyos MD [facility] [place] [address] documented as of this encounter Visit Diagnoses Not on filedocumented in this encounter Care Teams Plaster Foreman Relationship Specialty Start Date End Date Maximilian Fall MD [address] [facility] 1 [place] [address] PCP - General 10/01/11 02/13/21 documented as of this encounter
--- OUTSIDE RECORDS SUMMARY | 2024-07-22 13:08 | XMS_ITS | Encounter Summary ---
Author Organization [facility] Address [facility] [place] [address] Care Team Providers Care Senior Qualitative Researcher Name Role Phone Maximilian Fall MD Primary Care Provider [phone] Reason for Visit * Reason Comments Follow-up Encounter Details Date Type Department Care Team (Late st Contact Info) Description 04/08/2016 1:30 PM EDT Office Visit [place] [address] Marcelle Weinberg, JAZMINE [facility] [place] [address] Ulcerative chronic pancolitis, unspecified complication Social History [...] Overview Note: ?? Colonoscopy 04/08/10 (Dr. Gomes [facility]) - [...] AM EDT Office Visit [place] [address] Dion Osullivan MD [facility] [place] [address] 09/01/2024 9:40 AM EDT Office Visit Cardiology at [address] [address] Franky Shaver MD [facility] [place] [address] 09/01/2024 11:20 AM EDT Office Visit Dermatology at [facility] [address] [place] [address] Gómez Mercer MD [facility] DR [place] [address] 09/21/2024 2:45 PM EDT Office Visit [facility] [place] [phone] Trung Hoyos MD [facility] [place] [address] documented as of this encounter Visit Diagnoses Diagnosis Ulcerative chronic pancolitis, unspecified complication documented in this encounter Care Teams Senior Qualitative Researcher Relationship Specialty Start Date End Date Maximilian Fall MD [address] [place] [address] PCP - General 10/01/11 02/13/21 documented as of this encounter
--- OUTSIDE RECORDS SUMMARY | 2024-07-22 13:08 | XMS_ITS | Encounter Summary ---
Author Organization [facility] [place] [address] Care Team Providers Care Highway Painter Helper Name Role Phone Maximilian Fall MD Primary Care Provider [phone] Encounter Details Date Type Department Care Team (Late st Contact Info) Description 11/10/2018 Telephone [place] [address] Rachel Corral Social History Tobacco Use Types [...] 9:00 AM EDT Office [place] [address] Dion Barlow MD [facility] [place] [address] 09/01/2024 9:40 AM EDT Office Visit Cardiology at [address] [phone] Franky Shaver MD [facility] [place] [address] 09/01/2024 11:20 AM EDT Office Visit Dermatology at [address] [place] [address] Gómez Mercer MD [facility] [place] [address] 09/21/2024 2:45 PM EDT Office Visit [place] [address] Trung Hoyos MD [facility] [place] [address] documented as of this encounter Visit Diagnoses Not on filedocumented in this encounter Care Teams Highway Painter Helper Relationship Specialty Start Date End Date Maximilian Fall MD [address] [facility] [facility] 1 [place] [address] PCP - General 10/01/11 02/13/21 documented as of this encounter
--- OUTSIDE RECORDS SUMMARY | 2024-07-22 13:08 | XMS_ITS | Encounter Summary ---
Author Organization [facility] [place] [address] Care Team Providers Care Pig Machine Operator Helper Name Role Phone Maximilian Fall MD Primary Care Provider [phone] Reason for Visit * Reason Onset Date Comments Medication Refill 02/18/2017 Encounter Details Date Type Department Care Team (Late st Contact Info) Description 02/18/2017 [place] [address] Bethany Trivedi, RN Pain in right hip; [...] 9:00 AM EDT Office [place] [address] Dion Barlow MD [facility] [place] [address] 09/01/2024 9:40 AM EDT Office Visit Cardiology at [address] [place] [address] Franky Shaver MD [facility] [place] [address] 09/01/2024 11:20 AM EDT Office Visit Dermatology at [facility] [address] [place] [address] Gómez Mercer MD [facility] DR [place] [address] 09/21/2024 2:45 PM EDT Office Visit [place] [address] Trung Hoyos MD [facility] [place] [address] documented as of this encounter Visit Diagnoses Diagnosis Pain in right hip Pain in joint, pelvic region and thigh Chronic ulcerative enterocolitis, unspecified complication documented in this encounter Care Teams Pig Machine Operator Helper Relationship Specialty Start Date End Date Maximilian Fall MD [address] [place] [address] PCP - General 10/01/11 02/13/21 documented as of this encounter
--- OUTSIDE RECORDS SUMMARY | 2024-07-22 13:08 | XMS_ITS | Encounter Summary ---
Author Organization [facility] [place] [address] Care Team Providers Care Supervisor Sewing Department Name Role Phone Maximilian Fall MD Primary Care Provider [phone] Reason for Visit * Reason Onset Date Comments Medication Refill 05/03/2018 Encounter Details Date Type Department Care Team (Late Contact Info) Description 05/03/2018 Refill [place] [address] Bethany Trivedi, RN Social History Tobacco Use [...] Office Visit [place] [phone] Dion Barlow MD [facility] [place] [address] 09/01/2024 9:40 AM EDT Office Visit Cardiology at [address] [phone] Franky Shaver MD [facility] [place] [address] 09/01/2024 11:20 AM EDT Office Visit Dermatology at [facility] [address] [place] [address] Gómez Mercer MD [facility] DR EDDIE [place] [address] 09/21/2024 2:45 PM EDT Office Visit Pain and Spine Center at [facility] [place] [address] Trung Hoyos MD [facility] [place] [address] documented as of this encounter Visit Diagnoses Not on filedocumented in this encounter Care Teams Supervisor Sewing Department Relationship Specialty Start Date End Date Maximilian Fall MD [address] [place] [address] PCP - General 10/01/11 02/13/21 documented as of this encounter
--- OUTSIDE RECORDS SUMMARY | 2024-07-22 13:08 | XMS_ITS | Encounter Summary ---
Author Organization [facility] Address [facility] [place] [address] Care Team Providers Care Ug Designer Name Role Phone Maximilian Fall MD Primary Care Provider [phone] Encounter Details Date Type Department Care Team (Late st Contact Info) Description 02/22/2019 3:30 PM EDT - 02/22/2019 4:15 PM EDT [place] [address] Dion Barlow MD [facility] [place] [address] COLONOSCOPY FLEXIBLE, WITH BX (WRVU 3.56) Social [...] - 02/22/2019 5:05 PM EDT Please call [phone] before 8pm Mon-Fri with problems, questions or concerns. If you call after 8pm or on weekends, call the Hospital at [phone] and ask to speak to the Dye Tank Tender sales consultant and the stitching machine operator will contact that person for you. * Attachments The following attachments cannot be sent through Care Everywhere. * Colonoscopy: Post-op (Bermudian) * Colon Polyps (Bermudian) documented in this encounter Medications at Time [...] EDT Office [place] [address] Dion Barlow MD [facility] [place] [address] 09/01/2024 9:40 AM EDT Office Visit Cardiology at [address] [place] [address] Franky Shaver MD [facility] [place] [address] 09/01/2024 11:20 AM EDT Office Visit Dermatology at [facility] [address] [place] [address] Gómez Mercer MD [facility] DR EDD[place] [address] 09/21/2024 2:45 PM EDT Office Visit [place] [phone] Trung Hoyos MD [facility] [place] [address] documented as of this encounter Procedures Procedure [...] O CEE Performing Organization Address [facility]/[place] [address] * Specimen to Pathology (02/22/2019 4:56 PM EDT) AP Specimen 02/22/2019 4:56 PM EDT 02/22/2019 4:56 PM EDT Narrative [facility] - 02/22/2019 4:56 PM EDT Specimen requisition ordered. ??Separate Pathology report to follow L Karthik Barlow MD PATHOLOGY/CYTOLOGY O CEE Performing Organization Address City/[facility]/[place] [address] * Specimen to Pathology (02/22/2019 4:56 PM EDT) AP Specimen 02/22/2019 4:56 PM EDT 02/22/2019 4:56 PM EDT Narrative [facility] - 02/22/2019 4:56 PM EDT Specimen requisition ordered. ??Separate Pathology report to follow L Karthik Barlow MD PATHOLOGY/CYTOLOGY O CEE Performing Organization Address City/[facility]/ZIP Co [place] [address] * Specimen to Pathology (02/22/2019 4:56 PM EDT) AP Specimen 02/22/2019 4:56 PM EDT 02/22/2019 4:56 PM EDT Narrative [facility] - 02/22/2019 4:56 PM EDT Specimen requisition ordered. ??Separate Pathology report to follow L Karthik Barlow MD PATHOLOGY/[place] [address] * Specimen to Pathology (02/22/2019 4:56 PM EDT) AP Specimen 02/22/2019 4:56 PM EDT 02/22/2019 4:56 PM EDT Narrative [facility] - 02/22/2019 4:56 PM EDT Specimen requisition ordered. ??Separate Pathology report to follow L Karthik Barlow MD PATHOLOGY/[place] [address] * Specimen to Pathology (02/22/2019 4:56 PM EDT) AP Specimen 02/22/2019 4:56 PM EDT 02/22/2019 4:56 PM EDT Narrative [facility] - 02/22/2019 4:56 PM EDT Specimen requisition ordered. ??Separate Pathology report to follow L Karthik Barlow MD PATHOLOGY/[place] [address] * Specimen to Pathology (02/22/2019 4:56 PM EDT) AP Specimen 02/22/2019 4:56 PM EDT 02/22/2019 4:56 PM EDT [facility] - 02/22/2019 4:56 PM EDT Specimen requisition ordered. ??Separate Pathology report to follow L Karthik Barlow MD PATHOLOGY/CYTOLOGY O CEE Performing Organization Address [facility] Co de Phone Number [facility] [place] [address] * Specimen to Pathology (02/22/2019 4:56 PM EDT) AP Specimen 02/22/2019 4:56 PM EDT 02/22/2019 4:56 PM EDT Narrative [facility] - 02/22/2019 4:56 PM EDT Specimen requisition ordered. ??Separate Pathology report to follow L Karthik Barlow MD PATHOLOGY/CYTOLOGY O CEE Performing Organization Address [facility] de Phone Number [facility] [place] [address] * Surgical Pathology Report (02/22/2019 4:23 PM EDT) Final Diagnosis [id number] ? Location: 4T; EA06; A The signing [...] Tucker MD Verified: ??02/26/2019 ?Pathologist Performed at: ??-[facility] Dept. of Pathology, [place], [place] CLINICAL INFORMATION Specimen Submitted: A - [...] PATHOLOGY/CYTOLOGY O RDERABLES [facility] [place] [place] [address] * COLONOSCOPY (02/22/2019 3:57 PM EDT) COLONOSCOPY [facility] Endoscopy ___ Procedure Date: 02/22/2019 3:57 PM ? Patient Name: Brian Rodriguez ? Date of : 1950 ? Age: 68 ? Order #: [id number] ? Instrument Name: [id number] ? ___ Procedure: ? Colonoscopy Indications: ? [...] preparation was evaluated using ? the BBPS (Mobile Bowel Preparation ? Scale) with scores of: [...] RN) documented in this encounter Care Teams Ug Designer Relationship Specialty Start Date End Date Maximilian Fall MD [address] [address] PCP - General 10/01/11 02/13/21 documented as of this encounter
--- OUTSIDE RECORDS SUMMARY | 2024-07-22 13:08 | XMS_ITS | Encounter Summary ---
Author Organization [facility] Address [facility] [place] [address] Care Team Providers Care Youth Support Worker Name Role Phone Maximilian Fall MD Primary Care Provider [phone] Encounter Details Date Type Department Care Team (Late st Contact Info) Description 02/11/2019 Telephone [place] [address] Rachel Corral Social History Tobacco Use Types [...] - 02/11/2019 10:16 AM EDT Brian Rodriguez [id number] Diagnosis: [place] 1. Have you ever had a colonoscopy before? [x] YES [] NO If Yes, Date of Last [place]:_02/12/17 If yes, did you have any problems with the procedure? [] YES [x] NO Explain: What type of sedation was used: IV 2. Do you take any Blood Thinners? [] YES [x] NO If Yes, type: 3. Do you have a Pacemaker or Defibrillator device? [] YES [x] NO If Yes send [employer] message to [facility] ENDO DEVICE CHECK 4. Are you [...] 9:00 AM EDT Office [place] [phone] Dion Barlow MD [facility] [place] [address] 09/01/2024 9:40 AM EDT Office Visit Cardiology at [address] [place] [phone] Franky Shaver MD [facility] [place] [address] 09/01/2024 11:20 AM EDT Office Visit Dermatology at [place] [address] [place] [phone] Gómez Mercer MD [facility] [place] [address] 09/21/2024 2:45 PM EDT Office Visit [place] [phone] Trung Hoyos MD [facility] [place] [address] documented as of this encounter Visit Diagnoses Not on filedocumented in this encounter Care Teams Youth Support Worker Relationship Specialty Start Date End Date Maximilian Fall MD [address] [place] [address] PCP - General 10/01/11 02/13/21 documented as of this encounter
--- OUTSIDE RECORDS SUMMARY | 2024-07-22 13:08 | XMS_ITS | Encounter Summary ---
Author Organization [facility] [place] [address] Care Team Providers Care Liquor Inspector Name Role Phone Maximilian Fall MD Primary Care Provider [phone] Encounter Details Date Type Department Care Team (Latest Contact Info) Description 07/14/2016 11:55 AM EDT Laboratory Appointment Lab [address] [place] [address] Chronic ulcerative enterocolitis, unspecified complication; Acute amebic [...] 9:00 AM EDT Office [place] [address] Dion Barlow MD [facility] [place] [address] 09/01/2024 9:40 AM EDT Office Visit Cardiology at [address] [phone] Franky Shaver MD [facility] [place] [address] 09/01/2024 11:20 AM EDT Office Visit Dermatology at [facility] [address] [place] [address] Gómez Mercer MD [facility] DR EDDIE [place] [address] 09/21/2024 2:45 PM EDT Office Visit Pain and Spine Center at [facility] [place] [address] Trung Hoyos MD [facility] [place] [address] documented as of this encounter Procedures Procedure [...] 12:21 PM EDT) Neutrophil % 60.2 % [facility] Neutrophil Absolute 3.77 1.50 - 6.30 x10(3)/[facility] Lymph % 27.2 % [facility] Lymphocytes Abs 1.7 1.0 - 3.6 x10(3)/[facility] Monocyte % 9.0 % [facility] Monocyte Abs 0.6 0.2 - 1.0 x10(3)/[facility] Eos % 2.6 % [facility] Eosinophils Abs 0.2 0.0 - 0.5 x10(3)/[facility] Basophil % 0.5 % [facility] Baso Absolute 0.0 0.0 - 0.2 x10(3)/[facility] Immature Gran % 0.50 % [facility] Comment: Immature granulocytes(IG's)percentage and absolute count will include metamyelocytes, myelocytes, and promyelocytes. Blood smears from CBCs yielding IG's will be scanned manually for concordance. If this scan disagrees with the automated IG or if promyelocytes are noted, a manual differential will be performed. Immature Gran Absolute 0.03 0.00 - 0.05 x10(3)/[facility] Blood specimen (specimen) 07/14/2016 12:21 PM EDT 07/14/2016 12:29 PM EDT Narrative Resulting Agency Comment Spec In Lab L Karthik Barlow MD HEMATOLOGY ORDERABLE S [facility] [place] [address] * (ABNORMAL) Hemogram (07/14/2016 12:21 PM EDT) Pathologist [facility] White Blood Cell 6.2 4.0 - 10.0 x10(3)/mc L [facility] Red Blood Cell 4.11(L) 4.63 - 6.08 x10(6)/mc L [facility] Hemoglobin 13.4(L) 13.7 - 17.5 gm/dL [facility] Hematocrit 40.5 40.0 - 51.0 % [facility] Mean Cell Volume 98.5(H) 79.0 - 92.0 fL [facility] Mean Cell Hemoglobin 32.6(H) 25.6 - 32.2 pg [facility] Mean Cell Hemoglobin Concentration 33.1 32.0 - 36.5 gm/dL [facility] Platelet 214 145 - 370 x10(3)/mc L [facility] RDW Standard Deviation 47.4(H) 35.0 - 46.0 fL [facility] RDW coefficient of variation 13.2 10.9 - 14.4 % [facility] Mean Platelet Volume 11.1 9.0 - 12.0 fL [facility] NRBC% auto 0.0 % [facility] NRBC Absolute 0.000 0.000 - 0.012 x10(3)/mc L [facility] Blood specimen (specimen) 07/14/2016 12:21 PM EDT 07/14/2016 12:29 PM EDT Narrative Resulting Agency Comment Spec In Lab L Karthik Barlow MD HEMATOLOGY ORDERABLE S Performing Organization Address City/[facility]/ZIP Co de Phone Number [facility] [place] [address] * (ABNORMAL) Sedimentation rate (07/14/2016 12:21 PM EDT) Sedimentation Rate Automated 17(H) 0 - 15 mm/hr [facility] Blood specimen (specimen) 07/14/2016 12:21 PM EDT 07/14/2016 12:29 PM EDT Narrative Resulting Agency Comment Spec In Lab L Karthik Barlow MD HEMATOLOGY ORDERABLE S [facility] [place] [address] * Comprehensive metabolic panel (non-fasting) (07/14/2016 12:21 PM EDT) Glucose 147 65 - 199 mg/dL [facility] Comment:Diabetes: >=200 mg/d L plus symptoms Blood Urea Nitrogen 17 10 - 20 mg/dL [facility] Creatinine 1.04 0.80 - 1.50 mg/dL [facility] Comment: Please note that the pediatric reference intervals supplied above were not validated at [facility]. Results from pediatric patients should be interpreted in conjunction to the patient's age, height and muscle mass. Sodium 140 135 - 145 mmol/L [facility] [...] questions. Chloride 102 98 - 107 mmol/L [facility] Carbon Dioxide 25 22 - 31 mmol/L [facility] Anion Gap 13 5 - 15 mmol/L [facility] Calcium 9.7 8.5 - 10.5 mg/dL [facility] Protein, Total 7.9 6.1 - 8.0 gm/dL [facility] Albumin 4.4 3.2 - 5.2 gm/dL [facility] Aspartate Aminotransferase 15 0 - 39 unit/L [facility] Alanine Aminotransferase 20 0 - 55 unit/L [facility] Alkaline Phosphatase 65 40 - 120 unit/L [facility] Bilirubin, Total 0.4 0.2 - 1.3 mg/dL [facility] Bilirubin, Direct 0.1 0.0 - 0.3 mg/dL [facility] Est [...] the following links into your internet browser. [email or web address] Blood specimen (specimen) 07/14/2016 12:21 PM EDT 07/14/2016 12:29 PM EDT Narrative Resulting Agency Comment Spec In Lab L Karthik Barlow MD CHEMISTRY ORDERABLES [facility] [place] [address] * High Sensitivity CRP (07/14/2016 12:21 PM EDT) [facility] C-Reactive Protein High Sensitivity 4.8 mg/L [place] [...] CHEMISTRY ORDERABLES [facility] [place] [address] documented in this encounter Visit Diagnoses Diagnosis Chronic ulcerative enterocolitis, unspecified complication Acute amebic dysentery Acute amebic dysentery without mention of abscess documented in this encounter Care Teams Liquor Inspector Relationship Specialty Start Date End Date Maximilian Fall MD [address] [place] [address] PCP - General 10/01/11 02/13/21 documented as of this encounter
--- OUTSIDE RECORDS SUMMARY | 2024-07-22 13:08 | XMS_ITS | Encounter Summary ---
Author Organization [facility] Address [facility] [place] [address] Care Team Providers Care Senior Mobile Application Developer Name Role Phone Maximilian Fall MD Primary Care Provider [phone] Reason for Visit * Reason Comments Follow-up Encounter Details Date Type Department Care Team (Late st Contact Info) Description 05/11/2017 4:00 PM EDT Office Visit [place] [address] Marcelle Weinberg, JAZMINE [facility] [place] [address] Ulcerative colitis without complications, unspecified location Social [...] Note: ? Colonoscopy 04/08/10 (Dr. Gomes [facility]) - inflammation only within the rectum and sigmoid; extent of the exam was to the hepatic flexure; biopsies proximal to the sigmoid nl ?? Repeat exam 11/27/11 ([facility]): mildly active colitis [...] 3.66) performed by Dion Osullivan MD at [facility] ENDOSCOPY ??? PRO COLONOSCOPY, DIAGNOSTIC 11/27/2011 COLONOSCOPY, DIAGNOSTIC performed by Dion OSULLIVAN at [facility] ENDOSCOPY ??? PRO COLONOSCOPY, DIAGNOSTIC 07/13/2014 COLONOSCOPY, DIAGNOSTIC performed by Dion Osullivan MD at [facility] ENDOSCOPY ??? PRO SIGMOIDOSCOPY, DIAGNOSTIC 03/16/2012 FLEXIBLE SIGMOIDOSCOPY performed by YUDI MALLOY at [facility] ENDOSCOPY ??? UPPER GI ENDOSCOPY, EXAM 10/01/2012 UPPER GI ENDOSCOPY performed by Dion OSULLIVAN at [facility] ENDOSCOPY Social History Social History ??? [...] 1140 ?? Resulting lab: PROVATION ?? Value: [facility] Endoscopy Procedure Date: 02/12/2017 11:40 AM ? Patient Name: Brian Rodriguez ? Date of : 1950 ? Age: 66 ? Order #: [id number] ? Instrument Name: [id number] ? Procedure: ? Colonoscopy Indications: ? High risk colon cancer surveillance: ?Ulcerative colitis Patient Profile: ? This is a 66 year old male. This ?patient has left-sided ulcerative ?colitis on sulfasalazine and ?Cortifoam and is experiencing mild ?symptoms. Providers: ? L. Karthik Osullivan MD, Vandana Love ?RONY Mckeon, Sonal Segura, ?Rolled Glass Crosscutter Referring MD: ?Maximilian Fall MD Medicines: ? [...] ?bowel preparation was evaluated using ?the BBPS ([place] Bowel Preparation ?Scale) with scores of: Right [...] 9:00 AM EDT Office Visit [place] [address] [facility] [place] [address] 09/01/2024 9:40 AM EDT Office Visit Cardiology at [address] [phone] Franky Shaver MD [facility] [place] [address] 09/01/2024 11:20 AM EDT Office Visit Dermatology at [facility] [address] [place] [address] Gómez Mercer MD [facility] [place] [address] 09/21/2024 2:45 PM EDT Office Visit Pain and Spine Center at [facility] [place] [phone] Trung Hoyos MD [facility] [place] [address] documented as of this encounter Procedures Procedure [...] 4:21 PM EDT) Neutrophil % 63.1 % [facility] Neutrophil Absolute 4.76 1.70 - 6.10 x10(3)/[facility] Lymph % 25.0 % [facility] Lymphocytes Abs 1.9 0.9 - 3.2 x10(3)/[facility] LABOR[facility]ORY Monocyte % 7.6 % [facility] Monocyte Abs 0.6 0.3 - 0.9 x10(3)/[facility] LAB[facility] Eos % 3.2 % [facility] Eosinophils Abs 0.2 0.0 - 0.4 x10(3)/[facility] LABOR[facility] Basophil % 0.7 % [facility] Baso Absolute 0.0 0.0 - 0.1 x10(3)/[facility] LABOR[facility]ORY Immature Gran % 0.40 % [facility] Comment: Immature granulocytes(IG's)percentage and absolute count will include metamyelocytes, myelocytes, and promyelocytes. Blood smears from CBCs yielding IG's will be scanned manually for concordance. If this scan disagrees with the automated IG or if promyelocytes are noted, a manual differential will be performed. Immature Gran Absolute 0.03 0.00 - 0.04 x10(3)/[facility] Blood specimen (specimen) 05/11/2017 4:21 PM EDT 05/11/2017 4:29 PM EDT Narrative Resulting Agency Comment Spec In Lab Marcelle Weinberg APRN HEMATOLOGY ORDERA BLES [facility] [place] [address] * (ABNORMAL) Hemogram (05/11/2017 4:21 PM EDT) White Blood Cell 7.5 4.0 - 9.5 x10(3)/mc L [facility] Red Blood Cell 3.98(L) 4.58 - 5.54 x10(6)/ L [facility] Hemoglobin 13.1(L) 13.7 - 16.5 gm/dL [facility] Hematocrit 39.4(L) 40.5 - 48.5 % [facility] Mean Cell Volume 99.0(H) 82.9 - 93.1 fL [facility] Mean Cell Hemoglobin 32.9(H) 27.5 - 32.1 pg [facility] Mean Cell Hemoglobin Concentration 33.2 32.0 - 35.7 gm/dL [facility] Platelet 220 145 - 357 x10(3)/mc L [facility] RDW Standard Deviation 44.6 36.0 - 45.0 fL [facility] RDW coefficient of variation 12.3 11.4 - 13.8 % [facility] Mean Platelet Volume 11.1 7.6 - 12.9 fL [facility] NRBC% auto 0.0 % [facility] NRBC Absolute 0.000 0.000 - 0.000 x10(3)/mc L [facility] Blood specimen (specimen) 05/11/2017 4:21 PM EDT 05/11/2017 4:29 PM EDT Narrative Resulting Agency Comment Spec In Lab Marcelle Weinberg ORTHOPEDIC PHYSICAL THERAPIST HEMATOLOGY ORDERA BLES [facility] [place] [address] * CRP, acute inflammation (05/11/2017 4:21 PM EDT) [facility] C-Reactive Protein 2.3 <=4.9 mg/L [facility] Blood specimen (specimen) 05/11/2017 4:21 PM EDT 05/11/2017 4:29 PM EDT Narrative Resulting Agency Comment Spec In Lab Marcelle Weinberg ORTHOPEDIC PHYSICAL THERAPIST CHEMISTRY ORDERAB LES [facility] [place] [address] * (ABNORMAL) Sedimentation rate (05/11/2017 4:21 PM EDT) Sedimentation Rate Automated 19(H) 0 - 15 mm/hr [facility] Blood specimen (specimen) 05/11/2017 4:21 PM EDT 05/11/2017 4:29 PM EDT Narrative Resulting Agency Comment Spec In Lab Marcelle Weinberg ORTHOPEDIC PHYSICAL THERAPIST HEMATOLOGY ORDERA BLES [facility] [place] [place] [address] * (ABNORMAL) CMP w/fasting Glucose (05/11/2017 4:21 PM EDT) Glucose Fasting 91 65 - 99 mg/dL [facility] Comment: ?Fasting* Glucose Interpretive Criteria [...] of Diabetes Mellitus, Position Statement from the [place] [employer]. ??Diabetes Care, Volume 33, Supplement 1, Nov 2009 Blood Urea Nitrogen 20 10 - 20 mg/dL [facility] Creatinine 1.17 0.80 - 1.50 mg/dL [facility] Comment: Please note that the pediatric reference intervals supplied above were not validated at [facility]. Results from pediatric patients should be interpreted in conjunction to the patient's age, height and muscle mass. Sodium 143 135 - 145 mmol/L [facility] Potassium 4.9 3.5 - 5.0 mmol/L [facility] [...] mmol/L [facility] Anion Gap 14 5 - 15 mmol/L [facility] Calcium 9.9 8.5 - 10.5 mg/dL [facility] Protein, Total 8.2(H) 6.1 - 8.0 gm/dL [facility] Albumin 4.3 3.2 - 5.2 gm/dL [facility] Aspartate Aminotransferase 13 0 - 39 unit/L [facility] Alanine Aminotransferase 21 0 - 55 unit/L [facility] Alkaline Phosphatase 58 40 - 120 unit/L [facility] Bilirubin, Total 0.3 0.2 - 1.3 mg/dL [facility] Bilirubin, Direct 0.1 0.0 - 0.3 mg/dL [facility] Est Glomerular Filtration Rate >60 >=60 [facility] Comment: This estimated GFR (eGFR) [...] the following links into your internet browser. [email or web address] [email or web address] Blood specimen (specimen) 05/11/2017 4:21 PM EDT 05/11/2017 4:29 PM EDT Narrative Resulting Agency Comment Spec In Lab Marcelle Weinberg ORTHOPEDIC PHYSICAL THERAPIST CHEMISTRY ORDERAB LES [facility] [place] [address] documented in this encounter Visit Diagnoses Diagnosis Ulcerative colitis without complications, unspecified location documented in this encounter Care Teams Senior Mobile Application Developer Relationship Specialty Start Date End Date Maximilian Fall MD [address] [place] [address] PCP - General 10/01/11 02/13/21 documented as of this encounter
--- OUTSIDE RECORDS SUMMARY | 2024-07-22 13:08 | XMS_ITS | Encounter Summary ---
Author Organization [facility] [place] [address] Care Team Providers Care Medical Sales Representative Name Role Phone Maximilian Fall MD Primary Care Provider [phone] Reason for Visit * Reason Onset Date Comments Medication Refill 03/12/2018 Encounter Details Date Type Department Care Team (Late st Contact Info) Description 03/12/2018 Refill [place] [address] Bethany Trivedi, RN Pain in right hip; [...] 9:00 AM EDT Office Visit [place] [phone] Dion Barlow MD [facility] [place] [address] 09/01/2024 9:40 AM EDT Office Visit Cardiology at [address] [place] [phone] Franky Shaver MD [facility] [place] [place] [address] 09/01/2024 11:20 AM EDT Office Visit Dermatology at [facility] [address] [place] [phone] Gómez Mercer MD [facility] DR EDDIE SANC[place] [address] 09/21/2024 2:45 PM EDT Office Visit Pain [place] [phone] Trung Hoyos MD [facility] [place] [address] documented as of this encounter Visit Diagnoses Diagnosis Pain in right hip Pain in joint, pelvic region and thigh Chronic ulcerative enterocolitis, unspecified complication documented in this encounter Care Teams Medical Sales Representative Relationship Specialty Start Date End Date Maximilian Fall MD [address] [place] [address] PCP - General 10/01/11 02/13/21 documented as of this encounter
--- OUTSIDE RECORDS SUMMARY | 2024-07-22 13:08 | XMS_ITS | Encounter Summary ---
Author Organization [facility] Address [facility] [place] [address] Care Team Providers Care Transliterator Name Role Phone Maximilian Fall MD Primary Care Provider [phone] Reason for Visit * Reason Comments Follow-up Encounter Details Date Type Department Care Team (Late st Contact Info) Description 05/03/2018 8:30 AM EDT [place] [address] Dion Barlow MD [facility] [place] [address] Ulcerative pancolitis with complication Social History Tobacco [...] Overview Note: ? Colonoscopy 04/08/10 (Dr. Gomes [facility]) - inflammation only within [...] visit. 15 min of this 25 min [id number] visit was spent counseling the patient in the issues outlined above. Davina Barlow MD Steam Table Workerelectric bath attendant Section of Gastroenterology [place] [address] CC: Maximilian Fall MD [address] [place] [address] documented in this encounter Miscellaneous Notes * Addendum Note - Izabela Spencer - 05/03/2018 9:35 AM EDTAddended by: IZABELA SPENCER on: 05/03/2018 09:35 AM Modules accepted: Orders documented in this encounter Plan of Treatment Upcoming Encounters Date Type Department Care Team (Late st Contact Info) Description 08/15/2024 9:00 AM EDT Office [place] [address] Dion Barlow MD [facility] [place] [address] 09/01/2024 9:40 AM EDT Office Visit Cardiology at [address] [place] [address] Franky Shaver MD [facility] [place] [address] 09/01/2024 11:20 AM EDT Office Visit Dermatology at [facility] [address] [place] [address] Gómez Mercer MD [facility] DR EDDIE [place] [address] 09/21/2024 2:45 PM EDT Office Visit Pain and Spine Center at [facility] [place] [phone] Trung Hoyos MD [facility] [place] [address] documented as of this encounter Procedures Procedure [...] 9:46 AM EDT) Neutrophil % 62.5 % [facility] Neutrophil Absolute 3.86 1.70 - 6.10 x10(3)/[facility] LABORATORY Lymph % 27.2 % [facility] Lymphocytes Abs 1.7 0.9 - 3.2 x10(3)/[facility] LABORATORY Monocyte % 7.1 % [facility] Monocyte Abs 0.4 0.3 - 0.9 x10(3)/[facility] LABORATORY Eos % 2.1 % [facility] Eosinophils Abs 0.1 0.0 - 0.4 x10(3)/[facility] LABORATORY Basophil % 0.6 % [facility] Baso Absolute 0.0 0.0 - 0.1 x10(3)/[facility] LABORATORY Immature Gran % 0.50 [...] 0.03 0.00 - 0.04 x10(3)/[facility] LABORATORY Blood specimen (specimen) 05/03/2018 9:46 AM EDT 05/03/2018 10:12 AM EDT Narrative Resulting Agency Comment Spec In Lab L Karthik Barlow MD HEMATOLOGY ORDERABLE S [facility] [place] [address] * (ABNORMAL) Hemogram (05/03/2018 9:46 AM EDT) [...] [facility] NRBC% auto 0.0 % [facility] NRBC Absolute 0.000 0.000 - 0.000 x10(3)/mc L [facility] Blood specimen (specimen) 05/03/2018 9:46 AM EDT 05/03/2018 10:12 AM EDT Narrative Resulting Agency Comment Spec In Lab L Karthik Barlow MD HEMATOLOGY ORDERABLE S Performing Organization Address City/[facility]/ZIP Co de Phone Number [facility] [place] [address] * CRP, acute inflammation (05/03/2018 9:46 AM EDT) C-Reactive Protein 3.1 <=4.9 mg/L [facility] Blood specimen (specimen) 05/03/2018 9:46 AM EDT 05/03/2018 10:12 AM EDT Narrative Resulting Agency Comment Spec In Lab L Karthik Barlow MD CHEMISTRY ORDERABLES [facility] [place] [address] * Comprehensive metabolic panel (non-fasting) (05/03/2018 9:46 [...] LABORATORY Est Glomerular Filtration Rate >60 >=60 [facility] Comment: The reported eGFR should be multiplied by 1.2 for patients. The MDRD is not an appropriate measure of renal function for patients with body mass extremes or in patients with acute kidney failure. [email or web address] Blood specimen (specimen) 05/03/2018 9:46 AM EDT 05/03/2018 10:12 AM EDT Narrative Resulting Agency Comment Spec In Lab L Karthik Barlow MD CHEMISTRY ORDERABLES [facility] [place] [address] documented in this encounter Visit Diagnoses Diagnosis Ulcerative pancolitis with complication documented in this encounter Care Teams Transliterator Relationship Specialty Start Date End Date Maximilian Fall MD [address] [facility] [address] [place] [address] PCP - General 10/01/11 02/13/21 documented as of this encounter
--- OUTSIDE RECORDS SUMMARY | 2024-07-22 13:08 | XMS_ITS | Encounter Summary ---
Author Organization [facility] Address [facility] [place] [address] Care Team Providers Care Diesel Engine Specialist Name Role Phone Maximilian Fall MD Primary Care Provider [phone] Encounter Details Date Type Department Care Team (Latest Contact Info) Description 02/12/2017 10:14 AM EDT - 02/12/2017 1:50 PM EDT Hospital Encounter [place] [address] Dion Barlow MD [facility] [place] [address] Discharge Disposition: Home Social History Tobacco Use [...] - 02/12/2017 12:37 PM EDT Please call [phone] before 8pm with problems, questions or concerns, after 5pm call the Hospital at [phone] and ask to speak to the Regulatory Consultant provider relations representative and the radius corner machine operator will contact that person for [...] sent through Care Everywhere. * COLONOSCOPY: POST-OP (URUGUAYAN) documented in this encounter Medications at Time [...] Office Visit [place] [address] Dion Barlow MD [facility] [place] [address] 09/01/2024 9:40 AM EDT Office Visit Cardiology at [address] [place] [address] Franky Shaver MD [facility] [place] [address] 09/01/2024 11:20 AM EDT Office Visit Dermatology at [facility] [address] [place] [address] Gómez Mercer MD [facility] DR [place] [address] 09/21/2024 2:45 PM EDT Office Visit [facility] [place] [address] Trung Hoyos MD [facility] [place] [address] documented as of this encounter Procedures Procedure [...] PM EDT 02/12/2017 12:16 PM EDT Narrative [facility] - 02/12/2017 12:16 PM EDT Specimen requisition ordered. ??Separate Pathology report to follow L Karthik Barlow MD PATHOLOGY/[place] [address] * Specimen to Pathology (surgical or derm) (02/12/2017 12:16 PM EDT) AP Specimen 02/12/2017 12:1 6 PM EDT 02/12/2017 12:16 PM EDT Narrative [facility] - 02/12/2017 12:16 PM EDT Specimen requisition ordered. ??Separate Pathology report to follow L Karthik Barlow MD PATHOLOGY/[place] [address] * Specimen to Pathology (surgical or derm) (02/12/2017 12:16 PM EDT) AP Specimen 02/12/2017 12:1 6 PM EDT 02/12/2017 12:16 PM EDT Narrative [facility] - 02/12/2017 12:16 PM EDT Specimen requisition ordered. ??Separate Pathology report to follow L Karthik Barlow MD PATHOLOGY/[place] [address] * Specimen to Pathology (surgical or derm) (02/12/2017 12:16 PM EDT) AP Specimen 02/12/2017 12:1 6 PM EDT 02/12/2017 12:16 PM EDT Narrative [facility] - 02/12/2017 12:16 PM EDT Specimen requisition ordered. ??Separate Pathology report to follow L Karthik Barlow MD PATHOLOGY/CYTOLOGY Ozzie MIKE [facility] [place] [address] * Surgical Pathology Report (02/12/2017 12:15 PM EDT) Final Diagnosis [id number] ?Location: 4T; EA07; A The signing pathologist [...] ing: (T2) ??ejr 02/13/2017 4:23 PM EDT [facility] GI Biopsy 02/12/2017 12:1 5 PM EDT 02/12/2017 12:15 PM EDT GI Biopsy 02/12/2017 12:1 5 PM EDT 02/12/2017 12:15 PM EDT GI Biopsy 02/12/2017 12:1 5 PM EDT 02/12/2017 12:15 PM EDT GI Biopsy 02/12/2017 12:1 5 PM EDT 02/12/2017 12:15 PM EDT L Karthik Barlow MD PATHOLOGY/CYTOLOGY O CEE [facility] [place] [address] * COLONOSCOPY (02/12/2017 11:40 AM EDT) COLONOSCOPY [facility] Endoscopy ___ Procedure Date: 02/12/2017 11:40 AM ? Patient Name: Brian Rodriguez ? Date of : 1950 ? Age: 66 ? Order #: [id number] ? Instrument Name: [id number] ? ___ Procedure: ? Colonoscopy Indications: ? High risk colon cancer surveillance: ? Ulcerative colitis Patient Profile: ? This is a 66 year old male. This ? patient has left-sided ulcerative ? colitis on sulfasalazine and ? Cortifoam and is experiencing mild ? symptoms. Providers: ? Davina Barlow MD, Vandana Love ? Mike, RONY, Sonal [facility], ? Livestock Laborer Referring MD: ?Maximilian Fall MD Medicines: [...] preparation was evaluated using ? the BBPS ([place] Bowel Preparation ? Scale) with scores of: [...] Glucose, POC 132 65 - 199 mg/dL [facility] Comment: Supplemental ranges: <140 mg/dL before meals <180 mg/dL all other times of the day Blood specimen (specimen) 02/12/2017 10:29 AM EDT 02/12/2017 10:29 AM EDT Dion Barlow MD POINT OF CARE TEST O RDMELISSA Performing Organization Address City/[facility]/ZIP Co de Phone Number [facility] [place] [address] documented in this encounter Visit Diagnoses Not [...] RN) documented in this encounter Care Teams Diesel Engine Specialist Relationship Specialty Start Date End Date Maximilian Fall MD [address] [place] [address] PCP - General 10/01/11 02/13/21 documented as of this encounter
--- OUTSIDE RECORDS SUMMARY | 2024-07-22 13:08 | XMS_ITS | Encounter Summary ---
Author Organization [facility] [place] [address] Care Team Providers Care Product Ambassador Name Role Phone Maximilian Fall MD Primary Care Provider [phone] Encounter Details Date Type Department Care Team (Latest Contact Info) Description 07/18/2016 2:18 PM EDT - 07/18/2016 11:59 PM EDT Hospital [place] [address] Left sided colitis, unspecified complication; Chronic ulcerative [...] 9:00 AM EDT Office [place] [address] Dion Barlow MD [facility] [place] [address] 09/01/2024 9:40 AM EDT Office Visit Cardiology at [address] [phone] Franky Shaver MD [facility] [place] [address] 09/01/2024 11:20 AM EDT Office Visit Dermatology at [facility] [address] [place] [phone] Gómez Mercer MD [facility] DR EDDIE [place] [address] 09/21/2024 2:45 PM EDT Office Visit Pain and Spine Center at [facility] [place] [address] Trung Hoyos MD [facility] [place] [address] documented as of this encounter Procedures Procedure Name Priority Date/Time Associated Diagnosis Comments CAMPYLOBACTER ANTIGEN Routine 07/18/2016 2:32 PM EDT Chronic ulcerative enterocolitis, unspecified complication Acute amebic dysentery C. DIFFICILE SCREEN Routine 07/18/2016 2 :32 PM EDT Chronic ulcerative enterocolitis, unspecified complication Acute amebic dysentery STOOL CULTURE SCREEN ([facility]/CGP/APD/NLH) Routine 07/18/2016 2:27 PM EDT Chronic ulcerative enterocolitis, unspecified complication Acute amebic dysentery CRYPTOSPORIDIUM OOCYST ANTIGEN ([facility]/CGP/APD) Routine 07/18/2016 2:27 PM EDT Left sided colitis, unspecified complication SHIGA TOXIN ASSAY Routine 07/18/2016 2:2 7 PM EDT Chronic ulcerative enterocolitis, unspecified complication Acute amebic dysentery GIARDIA/CRYPTOSPORIDIUM ANTIGENS ([facility]/CGP/APD/NLH) Routine 07/18/2016 2:27 PM EDT Left sided colitis, unspecified complication GIARDIA ANTIGEN ([facility]/CGP/APD/NLH) Routine 07/18/2016 2:27 PM EDT Left sided colitis, unspecified complication STOOL CULTURE Routine 07/18/2016 2:27 PM EDT Chronic ulcerative enterocolitis, unspecified complication Acute amebic dysentery documented in this encounter Results * Campylobacter Antigen (07/18/2016 2:32 PM EDT) Pathologist [facility] Campylobacter Ag Immunoassay Negative for Campylobacter Antigen [facility] Stool specimen (specimen) 07/18/2016 2:32 PM EDT 07/18/2016 2:32 PM EDT Narrative Resulting Agency Comment Spec In Lab L Karthik Barlow MD MICROBIOLOGY - GENER AL ORDERABLES Performing Organization Address City/[facility]/ZIP Co de Phone Number [facility] [place] [place] [address] * C. Difficile Screen (07/18/2016 2:32 PM EDT) C Diff Interp Negative Negative [facility] Comment: C. diff ??Negative Clostridium difficile is not present in the specimen. If patient is having diarrhea suspected to be from an infectious cause, then Contact Precautions are still required. Stool specimen (specimen) 07/18/2016 2:32 PM EDT 07/18/2016 2:32 PM EDT Narrative Resulting Agency Comment Spec In Lab L Karthik Barlow MD MICROBIOLOGY - GENER AL ORDERABLES Performing Organization Address [facility]/[place] Co de Phone Number [facility] [place] [address] * Shiga Toxin Detection (07/18/2016 2:27 PM EDT) Shiga Toxin Assay EIA Negative for Shiga Toxin 1 EIA Negative for Shiga Toxin 2 [facility] Stool specimen (specimen) 07/18/2016 2:27 PM EDT 07/18/2016 2:32 PM EDT Narrative Resulting Agency Comment Spec In Lab Dion Barlow MD MICROBIOLOGY - GENER AL ORDERABLES Performing Organization Address City/[facility]/[place] Co de Phone Number [facility] [place] [address] * Stool culture (07/18/2016 2:27 PM EDT) Stool Culture No enteric pathogens isolated [facility] Stool specimen (specimen) 07/18/2016 2:27 PM EDT 07/18/2016 2:32 PM EDT Narrative Resulting Agency Comment Spec In Lab L Karthik Barlow MD MICROBIOLOGY - GENER AL ORDERABLES Performing Organization Address [facility]/[place] Co de Phone Number [facility] [place] [address] * Cryptosporidium Oocyst Antigen (07/18/2016 2:27 PM EDT) Cryptosporidium Antigen Negative Negative [facility] Stool specimen (specimen) 07/18/2016 2:27 PM EDT 07/18/2016 2:32 PM EDT Narrative Resulting Agency Comment Spec In Lab L Karthik Barlow MD MICROBIOLOGY - GENER AL ORDERABLES Performing Organization Address [facility]/[place] Co de Phone Number [facility] [place] [address] * Giardia antigen (07/18/2016 2:27 PM EDT) Giardia Antigen Negative Negative [facility] Comment:Examination for othe r intestinal parasites requires foreign travel history. Stool specimen (specimen) 07/18/2016 2:27 PM EDT 07/18/2016 2:32 PM EDT Narrative Resulting Agency Comment Spec In Lab L Karthik Barlow MD MICROBIOLOGY - GENER AL ORDERABLES Performing Organization Address [facility]/[place] Co de Phone Number [facility] [place] [address] documented in this encounter Visit Diagnoses Diagnosis Left sided colitis, unspecified complication Chronic ulcerative enterocolitis, unspecified complication Acute amebic dysentery Acute amebic dysentery without mention of abscess documented in this encounter Care Teams Product Ambassador Relationship Specialty Start Date End Date Maximilian Fall MD [address] [place] [address] PCP - General 10/01/11 02/13/21 documented as of this encounter
--- OUTSIDE RECORDS SUMMARY | 2024-07-22 13:08 | XMS_ITS | Encounter Summary ---
Author Organization [facility] Address [facility] [place] [address] Care Team Providers Care Cloth Cutter Name Role Phone Maximilian Fall MD Primary Care Provider [phone] Reason for Visit * Reason Comments Follow-up Encounter Details Date Type Department Care Team (Late st Contact Info) Description 10/29/2017 10:30 AM EST Office [place] [address] Dion Barlow MD [facility] [place] [address] Left sided ulcerative colitis with complication Social [...] Overview Note: ? Colonoscopy 04/08/10 (Dr. Gomes [facility]) [...] months. 15 min of this 25 min gosy-wa-yjzy visit was spent counseling the patient in the issues outlined above. Davina Barlow MD Central Service Techniciancredit assessment analyst Section of [place]astroenterology [place] [address] CC: Maximilian Fall MD [address] [place] [phone] documented in this encounter Plan of Treatment Upcoming Encounters Date Type Department Care Team (Late st Contact Info) Description 08/15/2024 9:00 AM EDT Office [place] [address] Dion Barlow MD [facility] [place] [address] 09/01/2024 9:40 AM EDT Office Visit Cardiology at [address] [place] [address] Franky Shaver MD [facility] [place] [address] 09/01/2024 11:20 AM EDT Office Visit Dermatology at [facility] [address] [place] [address] Gómez Mercer MD [facility] DR EDDIE [place] [address] 09/21/2024 2:45 PM EDT Office Visit Pain and Spine Center at [facility] [place] [address] Trung Hoyos MD [facility] [place] [address] documented as of this encounter Visit Diagnoses Diagnosis Left sided ulcerative colitis with complication documented in this encounter Care Teams Cloth Cutter Relationship Specialty Start Date End Date Maximilian Fall MD [address] [place] [address] PCP - General 10/01/11 02/13/21 documented as of this encounter
--- OUTSIDE RECORDS SUMMARY | 2024-07-22 13:09 | XMS_ITS | Encounter Summary ---
[place] [address] Care Team Providers Care Subassembly Assembler Name Role Phone Maximilian Fall MD Primary Care Provider [phone] Encounter Details Date Type Department Care Team (Latest Contact Info) Description 11/06/2015 10:15 AM EST Laboratory Appointment Lab [address] [place] [phone] Ulcerative colitis, without complications; Diarrhea; Pain in [...] 9:00 AM EDT Office [place] [address] Dion Barlow MD [facility] [place] [address] 09/01/2024 9:40 AM EDT Office Visit Cardiology at [address] [place] [phone] Franky Shaver MD [facility] [place] [address] 09/01/2024 11:20 AM EDT Office Visit Dermatology at [facility] [address] [place] [phone] Gómez Mercer MD [facility] [place] [address] 09/21/2024 2:45 PM EDT Office Visit Pain [place] [phone] Trung Hoyos MD [facility] [place] [place] [address] documented as of this encounter Procedures Procedure Name Priority Date/Time Associated Diagnosis Comments C. DIFFICILE SCREEN Routine 11/06/2015 2 :30 PM EST Pain in right hip Bilateral low back pain, with sciatica presence unspecified Abdominal pain, unspecified abdominal location Chronic ulcerative enterocolitis, unspecified complication STOOL CULTURE SCREEN ([facility]/CGP/APD/NLH) Routine 11/06/2015 1:49 PM EST Pain in [...] ulcerative enterocolitis, unspecified complication CRYPTOSPORIDIUM OOCYST ANTIGEN ([facility]/CGP/APD) Routine 11/06/2015 1:09 PM EST Pain in right hip Bilateral low back pain, with sciatica presence unspecified Abdominal pain, unspecified abdominal location Chronic ulcerative enterocolitis, unspecified complication GIARDIA/CRYPTOSPORIDIUM ANTIGENS ([facility]/CGP/APD/NLH) Routine 11/06/2015 1:09 PM EST Pain in right hip Bilateral low back pain, with sciatica presence unspecified Abdominal pain, unspecified abdominal location Chronic ulcerative enterocolitis, unspecified complication GIARDIA ANTIGEN ([facility]/CGP/APD/NLH) Routine 11/06/2015 1:09 PM EST Pain in [...] PM EST) C Diff Interp Negative Negative [facility] Stool specimen (specimen) 11/06/2015 2:30 PM EST 11/06/2015 2:30 PM EST Narrative Resulting Agency Comment Spec In Lab L Karthik Barlow MD MICROBIOLOGY - GENER AL ORDERABLES Performing Organization Address [facility] Phone Number [facility] * Shiga Toxin Detection (11/06/2015 1:49 PM EST) Pathologist [facility] Shiga Toxin Assay EIA Negative for Shiga Toxin 1 EIA Negative for Shiga Toxin [address] [facility] Stool specimen (specimen) 11/06/2015 1:49 PM EST 11/06/2015 2:33 PM EST Narrative Resulting Agency Comment Spec In Lab L Karthik Barlow MD MICROBIOLOGY - GENER AL ORDERABLES Performing Organization Address [facility] Phone Number [facility] * Campylobacter Antigen (11/06/2015 1:49 PM EST) Pathologist [facility] Campylobacter Ag Immunoassay Negative for Campylobacter Antigen [facility] Stool specimen (specimen) 11/06/2015 1:49 PM EST 11/06/2015 2:33 PM EST Narrative Resulting Agency Comment Spec In Lab L Karthik Barlow MD MICROBIOLOGY - GENER AL ORDERABLES Performing Organization Address [facility] de Phone Number [facility] * Stool culture (11/06/2015 1:49 PM EST) Stool Culture No enteric pathogens isolated [facility] Stool specimen (specimen) 11/06/2015 1:49 PM EST 11/06/2015 2:33 PM EST Narrative Resulting Agency Comment Spec In Lab L Karthik Barlow MD MICROBIOLOGY - GENER AL ORDERABLES Performing Organization Address [facility] Phone Number [facility] * Cryptosporidium Oocyst Antigen (11/06/2015 1:09 PM EST) Cryptosporidium Antigen Negative Negative [facility] Stool specimen (specimen) 11/06/2015 1:09 PM EST 11/06/2015 2:28 PM EST Narrative Resulting Agency Comment Spec In Lab L Karthik Barlow MD MICROBIOLOGY - GENER AL ORDERABLES Performing Organization Address [facility] Phone Number [facility] * Giardia antigen (11/06/2015 1:09 PM EST) Giardia Antigen Negative Negative [facility] Comment:Examination for othe r intestinal parasites requires foreign travel history. Stool specimen (specimen) 11/06/2015 1:09 PM EST 11/06/2015 2:28 PM EST Narrative Resulting Agency Comment Spec In Lab L Karthik Barlow MD MICROBIOLOGY - GENER AL ORDERABLES Performing Organization Address [facility] Phone Number [facility] * (ABNORMAL) Urine culture (11/06/2015 1:00 PM EST) Urine Culture 50,000-99,000 cfu/ml Escherichia coli(A) [facility] Organism Escherichia coli(A) [facility] Urine specimen obtained by clean [...] MD MICROBIOLOGY - GENER AL ORDERABLES [facility] nDreamsIUM * (ABNORMAL) Urinalysis with reflex Culture (11/06/2015 [...] Urine Dipstick Hazy(A) Clear CERNER MILLENNIUM Specific [place] Urine Automated 1.020 1.002 - 1.030 CERNER [...] metabolic panel (non-fasting) (11/06/2015 10:24 AM EST) [facility] Glucose 81 65 - 199 mg/dL CERNER MILLENNIUM Comment:Diabetes: >=200 mg/d L plus symptoms Blood Urea Nitrogen 14 10 - 20 mg/dL CERNER MILLENNIUM Creatinine 1.15 0.80 - 1.50 mg/dL CERNER MILLENNIUM Comment: Please note that the pediatric reference intervals supplied above were not validated at [facility]. Results from pediatric patients should [...] the following links into your internet browser. [email or web address] Blood specimen (specimen) 11/06/2015 10:24 AM EST 11/06/2015 10:28 AM EST Narrative Resulting Agency Comment Spec In Lab Dion Barlow MD CHEMISTRY ORDERABLES Performing Organization Address [facility] de Phone Number DURGA ORDOÑEZBayes [facility] * High Sensitivity CRP (11/06/2015 10:24 AM EST) C-Reactive Protein High Sensitivity 7.9 mg/L [facility] Comment: Interpretations: 1) For accurate [...] Barlow MD CHEMISTRY ORDERABLES Performing Organization Address [facility] de Phone Number DURGA FREDERICK documented in this encounter Visit Diagnoses Diagnosis Ulcerative colitis, without complications Diarrhea Pain in right hip Pain in joint, pelvic region and thigh Bilateral low back pain, with sciatica presence unspecified Abdominal pain, unspecified abdominal location Chronic ulcerative enterocolitis, unspecified complication documented in this encounter Care Teams Subassembly Assembler Relationship Specialty Start Date End Date Maximilian Fall MD [address] [place] [address] PCP - General 10/01/11 02/13/21 documented as of this encounter
--- OUTSIDE RECORDS SUMMARY | 2024-07-22 13:09 | XMS_ITS | Encounter Summary ---
Author Organization [facility] [place] [address] Care Team Providers Care Thermal Cutting Tracer Machine Operator Name Role Phone Maximilian Fall MD Primary Care Provider [phone] Reason for Visit * Reason Onset Date Comments Medication Refill 11/22/2012 Encounter Details Date Type Department Care Team (Late st Contact Info) Description 11/22/2012 Refill [place] [address] Dion Barlow MD [facility] [place] [address] Ulcerative colitis (Primary Dx) Social History Tobacco [...] 9:00 AM EDT Office [place] [phone] Dion Barlow MD [facility] [place] [address] 09/01/2024 9:40 AM EDT Office Visit Cardiology at [address] [place] [address] Franky Shaver MD [facility] [place] [address] 09/01/2024 11:20 AM EDT Office Visit Dermatology at [facility] [address] [place] [phone] Gómez Mercer MD [facility] DR EDDIE [place] [address] 09/21/2024 2:45 PM EDT Office Visit Pain and Spine Center at [facility] [place] [address] Trung Hoyos MD [facility] [place] [address] documented as of this encounter Visit Diagnoses Diagnosis Ulcerative colitis- Primary Ulcerative colitis, unspecified documented in this encounter Care Teams Thermal Cutting Tracer Machine Operator Relationship Specialty Start Date End Date Maximilian Fall MD [address] [facility] [place] [address] PCP - General 10/01/11 02/13/21 documented as of this encounter
--- OUTSIDE RECORDS SUMMARY | 2024-07-22 13:09 | XMS_ITS | Encounter Summary ---
Author Organization [facility] [place] [address] Care Team Providers Care Log Stacker Operator Name Role Phone Maximilian Fall MD Primary Care Provider [phone] Encounter Details Date Type Department Care Team (Late st Contact Info) Description 09/30/2012 Telephone [place] [phone] Lilliana Reece RN Social History Tobacco Use [...] 9:00 AM EDT Office [place] [address] Dion Barlow MD [facility] [place] [address] 09/01/2024 9:40 AM EDT Office Visit Cardiology at [address] [place] [phone] Franky Shaver MD [facility] [place] [address] 09/01/2024 11:20 AM EDT Office Visit Dermatology at [facility] [address] [place] [phone] Gómez Mercer MD [facility] [place] [address] 09/21/2024 2:45 PM EDT Office Visit [place] [phone] Trung Hoyos MD [facility] [place] [address] documented as of this encounter Visit Diagnoses Not on filedocumented in this encounter Care Teams Log Stacker Operator Relationship Specialty Start Date End Date Maximilian Fall MD [address] [facility] 1 [place] [address] PCP - General 10/01/11 02/13/21 documented as of this encounter
--- OUTSIDE RECORDS SUMMARY | 2024-07-22 13:09 | XMS_ITS | Encounter Summary ---
Author Organization [facility] [place] [address] Care Team Providers Care Sealer Operator Name Role Phone Maximilian Fall MD Primary Care Provider [phone] Encounter Details Date Type Department Care Team (Late Contact Info) Description 11/06/2015 Orders [place] [phone] Marcelle Weinberg, JAZMINE [facility] [place] [address] Ulcerative colitis without complications Social History Tobacco [...] 9:00 AM EDT Office [place] [phone] Dion Barlow MD [facility] [place] [address] 09/01/2024 9:40 AM EDT Office Visit Cardiology at [address] [place] [phone] Franky Shaver MD [facility] [place] [address] 09/01/2024 11:20 AM EDT Office Visit Dermatology at [facility] [address] [place] [phone] Gómez Mercer MD [facility] DR EDD[place] [address] 09/21/2024 2:45 PM EDT Office Visit Pain and Spine Center at [facility] [place] [phone] Trung Hoyos MD [facility] [place] [address] documented as of this encounter Visit Diagnoses Diagnosis Ulcerative colitis without complications Ulcerative colitis, unspecified documented in this encounter Care Teams Sealer Operator Relationship Specialty Start Date End Date Maximilian Fall MD [address] [facility] 1 [place] [address] PCP - General 10/01/11 02/13/21 documented as of this encounter
--- OUTSIDE RECORDS SUMMARY | 2024-07-22 13:09 | XMS_ITS | Encounter Summary ---
Author Organization [facility] Address [facility] [place] [address] Care Team Providers Care Prefitter Doors Name Role Phone Maximilian Fall MD Primary Care Provider [phone] Reason for Visit * Reason Comments Follow-up Encounter Details Date Type Department Care Team (Late st Contact Info) Description 12/04/2015 3:30 PM EST Office Visit [place] [address] Marcelle Weinberg, JAZMINE [facility] [place] [address] Other ulcerative colitis Social History Tobacco Use [...] Note: ?? Colonoscopy 04/08/10 (Dr. Gomes [facility]) - inflammation only within the rectum and sigmoid; extent of the exam was to the hepatic flexure; biopsies proximal to the sigmoid nl ?? Repeat exam 11/27/11 ([facility] [...] to move his bowels. Still formed stool. Roff better after defecation. Eating well. Weight stable. [...] by Dion OSULLIVAN at [facility] ENDOSCOPY ??? Pro sigmoidoscopy, diagnostic 03/16/2012 FLEXIBLE SIGMOIDOSCOPY performed by YUDI MALLOY at [facility] ENDOSCOPY ??? Upper gi endoscopy, exam 10/01/2012 UPPER GI ENDOSCOPY performed by Dion OSULLIVAN at [facility] END[facility] ??? Pro colonoscopy, diagnostic 07/13/2014 COLONOSCOPY, DIAGNOSTIC performed by Dion Osullivan MD at [facility] END[facility] History Social History ??? Marital [...] UA Latest Range: Clear Hazy (A) Spec [place] UA Latest Range: 1.002-1.030 1.020 pH UA [...] 9:00 AM EDT Office Visit [place] [phone] Dion Osullivan MD [facility] [place] [address] 09/01/2024 9:40 AM EDT Office Visit Cardiology at [address] [address] Franky Shaver MD [facility] [place] [address] 09/01/2024 11:20 AM EDT Office Visit Dermatology at [address] [address] Gómez Mercer MD [facility] [place] [address] 09/21/2024 2:45 PM EDT Office Visit [facility] [place] [phone] Trung Hoyos MD [facility] [place] [address] documented as of this encounter Visit Diagnoses Diagnosis Other ulcerative colitis documented in this encounter Care Teams Prefitter Doors Relationship Specialty Start Date End Date Maximilian Fall MD [address] [place] [address] PCP - General 10/01/11 02/13/21 documented as of this encounter
--- OUTSIDE RECORDS SUMMARY | 2024-07-22 13:09 | XMS_ITS | Encounter Summary ---
Author Organization [facility] Address [facility] [place] [address] Care Team Providers Care Customer Response Representative Name Role Phone Maximilian Fall MD Primary Care Provider [phone] Reason for Visit * Reason Comments Follow-up Encounter Details Date Type Department Care Team (Late st Contact Info) Description 03/13/2015 1:00 PM EDT Follow-Up [place] [address] Dion Barlow MD [facility] [place] [address] Ulcerative colitis, other complication; Lethargy; Other ulcerative [...] 6 months or sooner. Davina Barlow MD Financial Service Representativeforepart rounder Section of Gastroenterology [place] [address] documented in this encounter Plan of Treatment Upcoming Encounters Date Type Department Care Team (Late st Contact Info) Description 08/15/2024 9:00 AM EDT Office Visit [place] [phone] Dion Barlow MD [facility] [place] [address] 09/01/2024 9:40 AM EDT Office Visit Cardiology at [address] [address] Franky Shaver MD [facility] [place] [address] 09/01/2024 11:20 AM EDT Office Visit Dermatology at [address] [address] Gómez Mercer MD [facility] DR EDDIE [place] [address] 09/21/2024 2:45 PM EDT Office Visit [facility] [place] [address] Trung Hoyos MD [facility] [place] [address] Scheduled Orders Name Type Priority Associated Diagnoses [...] MD HEMATOLOGY ORDERABLE S Performing Organization Address [facility]/State/ZIP Co de Phone Number CERGIOVANNI ORDOÑEZENNIUM * [...] Performing Organization Address [facility] Co de Phone Number DURGA COLBERTIUM [...] Performing Organization Address [facility]/ZIP Co de Phone Number JO-ANNGIOVANNI ORDOÑEZENNIUM [...] intervals supplied above were not validated at [facility]. Results from pediatric patients [...] the following links into your internet browser. [email or web address] Blood specimen (specimen) 03/13/2015 2:00 PM EDT 03/13/2015 2:14 PM EDT Narrative Resulting Agency Comment Spec In Lab L Karthik Barlow MD CHEMISTRY ORDERABLES [facility] documented in this encounter Visit Diagnoses Diagnosis Ulcerative colitis, other complication Lethargy Other malaise and fatigue Other ulcerative colitis documented in this encounter Care Teams Customer Response Representative Relationship Specialty Start Date End Date Maximilian Fall MD [address] [place] [address] PCP - General 10/01/11 02/13/21 documented as of this encounter
--- OUTSIDE RECORDS SUMMARY | 2024-07-22 13:09 | XMS_ITS | Encounter Summary ---
Author Organization [facility] Address [facility] [address] Care Team Providers Care Printing Sales Representative Name Role Phone Maximilian Fall MD Primary Care Provider [phone] Encounter Details Date Type Department Care Team (Latest Contact Info) Description 10/01/2012 2:23 PM EST - 10/01/2012 6:31 PM EST Hospital Encounter [place] [address] Dion Osullivan MD [facility] [place] [address] Discharge Disposition: Home Social History Tobacco Use [...] GI ENDOSCOPY: WHAT TO EXPECT AT HOME ([place]) documented in this encounter Medications at Time [...] Osullivan MD - 10/01/2012 5:07 PM EST [facility] Operative Note Patient Name: Naya Rodriguez : [id number] MR#: [id number] Case Date: 10/01/2012 Surgeon: Surgeon(s) and Role: [...] 9:00 AM EDT Office Visit [place] [address] Dion Osullivan MD [facility] [place] [address] 09/01/2024 9:40 AM EDT Office Visit Cardiology at [address] [phone] Franky Shaver MD [facility] [address] 09/01/2024 11:20 AM EDT Office Visit Dermatology at [address] [place] [address] Gómez Mercer MD [facility] [place] [address] 09/21/2024 2:45 PM EDT Office Visit Pain [place] [address] Trung Hoyos MD [facility] [place] [address] documented as of this encounter Procedures Procedure [...] 5:54 PM EST) Surgical Pathology Report ? [facility] ? Provider: ?? Dion OSULLIVAN ?Pt. Name: ?? SHANT NAYA Joya ? Acc #: ?[id number] ?Pt. ? Col Date: ?? 10/01/2012 ? [...] CEE Performing Organization Address City/[facility] Co de Phone Number [facility] * Specimen to Pathology (surgical or derm) (10/01/2012 5:09 PM EST) AP Specimen 10/01/2012 5:09 PM EST 10/01/2012 5:09 PM EST Narrative [facility] - 10/01/2012 5:09 PM EST Specimen requisition ordered. ??Separate Pathology report to follow L Karthik Osullivan MD PATHOLOGY/CYTOLOGY O CEE [facility] * UPPER GI ENDOSCOPY (10/01/2012 4:41 PM EST) UPPER GI ENDOSCOPY [facility] Endoscopy Patient Name: Naya Rodriguez ? Procedure Date: 10/01/2012 4:41 PM ? Date of : 1950 ? Age: 62 ? Order #: [id number] ? Procedure: ? Upper GI endoscopy Indications: ? Epigastric abdominal pain Providers: ? L Karthik Osullivan MD, Alannah Singletary, ? RN, Mona Osborne, Aco Coordinator Referring : ?Maximilian Fall MD Medicines: ? [...] GENERAL SURGICAL ORD ERABLES Performing Organization Address [facility] Co de Phone Number PROVATION * POCT GLUCOSE (10/01/2012 4:27 PM EST) Glucose, POC 84 60 - 199 mg/dL [facility] Comment: Supplemental ranges: <110 mg/dL before [...] documented in this encounter Care Teams Printing Sales Representative Relationship Specialty Start Date End Date Maximilian Fall MD [address] [place] [address] PCP - General 10/01/11 02/13/21 documented as of this encounter
--- OUTSIDE RECORDS SUMMARY | 2024-07-22 13:09 | XMS_ITS | Encounter Summary ---
Author Organization [facility] Address [facility] [place] [address] Care Team Providers Care Side Door Man Name Role Phone More Naylor MD Primary Care Provider [phone] Reason for Visit * Reason Comments Follow-up Encounter Details Date Type Department Care Team (Late st Contact Info) Description 11/01/2013 2:00 PM EST Follow-[place] [address] Dion Barlow MD [facility] [place] [address] Ulcerative colitis (Primary Dx) Discharge Disposition: Home [...] ??? Ulcerative colitis Colonoscopy 04/08/10 (Dr. Gomes [facility]) - inflammation only within the rectum and sigmoid; extent of the exam was to the hepatic flexure; biopsies proximal to the sigmoid nl Repeat exam 11/27/11 ([facility] [...] has left-sided ulcerative colitis with persistently active [id number] symptom - now worse off of his [...] CC: MORE NAYLOR MD [address] [place] [address] documented in this encounter Plan of Treatment Upcoming Encounters Date Type Department Care Team (Late st Contact Info) Description 08/15/2024 9:00 AM EDT Office Visit [place] [address] Dion Barlow MD [facility] [place] [address] 09/01/2024 9:40 AM EDT Office Visit Cardiology at [address] [place] [phone] Franky Shaver MD [facility] [place] [address] 09/01/2024 11:20 AM EDT Office Visit Dermatology at [facility] [address] [place] [phone] Gómez Mercer MD [facility] DR EDDIE [place] [address] 09/21/2024 2:45 PM EDT Office Visit Pain and Spine Center at [facility] [place] [phone] Trung Hoyos MD [facility] [place] [address] documented as of this encounter Procedures Procedure [...] L Karthik Barlow MD HEMATOLOGY ORDERABLE S [facility] MILLENNIUM * (ABNORMAL) Comprehensive metabolic [...] unspecified documented in this encounter Care Teams Side Door Man Relationship Specialty Start Date End Date More Naylor MD [address] [place] [address] PCP - General 10/01/11 02/13/21 documented as of this encounter
--- OUTSIDE RECORDS SUMMARY | 2024-07-22 13:09 | XMS_ITS | Encounter Summary ---
Author Organization [facility] Address [facility] [place] [address] Care Team Providers Care Computer Systems Security Analyst Name Role Phone Maximilian Fall MD Primary Care Provider [phone] Encounter Details Date Type Department Care Team (Late st Contact Info) Description 09/11/2014 10:00 AM EDT [place] [address] Dion Barlow MD [facility] [place] [address] Ulcerative colitis, other complication (Primary Dx) Discharge [...] Overview Note: ?? Colonoscopy 04/08/10 (Dr. G[facility]) - inflammation only within the [...] 6 months or sooner. Davina Barlow MD Saddle Lining Stitchermill operator helper Section of Gastroenterology [place] [address] documented in this encounter Plan of Treatment Upcoming Encounters Date Type Department Care Team (Late st Contact Info) Description 08/15/2024 9:00 AM EDT Office [place] [address] Dion Barlow MD [facility] [place] [address] 09/01/2024 9:40 AM EDT Office Visit Cardiology at [address] [phone] Franky Shaver MD [facility] [place] [address] 09/01/2024 11:20 AM EDT Office Visit Dermatology at [facility] [address] [place] [address] Gómez Mercer MD [facility] DR [place] [address] 09/21/2024 2:45 PM EDT Office Visit [place] [address] Trung Hoyos MD [facility] [place] [address] documented as of this encounter Visit Diagnoses Diagnosis Ulcerative colitis, other complication- Primary documented in this encounter Care Teams Computer Systems Security Analyst Relationship Specialty Start Date End Date Maximilian Fall MD [address] [place] [address] PCP - General 10/01/11 02/13/21 documented as of this encounter
--- OUTSIDE RECORDS SUMMARY | 2024-07-22 13:09 | XMS_ITS | Encounter Summary ---
Author Organization [facility] Address [facility] [place] [address] Care Team Providers Care Aeronautical Test Engineer Name Role Phone Maximilian Fall MD Primary Care Provider [phone] Encounter Details Date Type Department Care Team (Latest Contact Info) Description 07/13/2014 1:25 PM EDT - 07/13/2014 4:30 PM EDT Hospital Encounter [place] [address] Dion Osullivan MD [facility] [place] [address] Discharge Disposition: Home Social History Tobacco Use [...] - 07/13/2014 4:14 PM EDT Please call [phone], before 5pm with problems, questions or concerns, after 5pm call the Hospital at [phone] and ask to speak to the Container Finishing Inspector injection moulding machine operator and the hydrate thickener operator will contactthat person for you. Discharge [...] through Care Everywhere. * COLONOSCOPY : POSTOP (KYRGYZ) documented in this encounter Medications at Time [...] MD - 07/13/2014 3:57 PM EDT [facility] Operative Note Patient Name: Naya Rodriguez : [id number] MR#: [id number] Case Date: 07/13/2014 Surgeon: Surgeon(s) and Role: [...] 9:00 AM EDT Office [place] [address] Dion Osullivan MD [facility] [place] [address] 09/01/2024 9:40 AM EDT Office Visit Cardiology at [address] [place] [phone] Franky Shaver MD [facility] [place] [address] 09/01/2024 11:20 AM EDT Office Visit Dermatology at [facility] [address] [place] [phone] Gómez Mercer MD [facility] [address] 09/21/2024 2:45 PM EDT Office Visit [place] [phone] Trung Hoyos MD [facility] [place] [address] documented as of this encounter Procedures Procedure [...] (07/13/2014 3:58 PM EDT) Final Diagnosis ? [facility] ? Provider: ?? Dion OSULLIVAN ?Pt. Name: ?? NAYA RODRIGUEZ ? Acc #: ?[id number] ?Pt. ? Col Date: ?? 07/13/2014 ? [...] - Mucosal biopsies - R colon ? [facility] ? Provider: ?? Dion OSULLIVAN ?Pt. Name: ?? NAYA RODRIGUEZ ? Acc #: ?[id number] ?Pt. ? Col Date: ?? 07/13/2014 ? [...] Osullivan MD PATHOLOGY/CYTOLOGY O CEE DURGA [place] [address] * Specimen to Pathology (surgical or derm) (07/13/2014 3:58 PM EDT) AP Specimen 07/13/2014 3:58 PM EDT 07/13/2014 3:58 PM EDT Narrative JO-ANNGIOVANNI COLBERTIUM - 07/13/2014 3:58 PM EDT Specimen requisition ordered. ??Separate Pathology report to follow L Karthik Osullivan MD PATHOLOGY/CYTOLOGY O CEE Performing Organization Address [facility] Co de Phone Number DURGA FREDERICK [...] [facility]/ZIP Co de Phone Number DURGA FREDERICK * Specimen to Pathology (surgical or derm) (07/13/2014 3:58 PM EDT) AP Specimen 07/13/2014 3:58 PM EDT 07/13/2014 3:58 PM EDT Narrative DURGA COLBERTIUM - 07/13/2014 3:58 PM EDT Specimen requisition ordered. ??Separate Pathology report to follow L Karthik Osullivan MD PATHOLOGY/CYTOLOGY O RDMELISSA DURGA FREDERICK * COLONOSCOPY (07/13/2014 2:51 PM EDT) Pathologist [facility] COLONOSCOPY [facility] Endoscopy Patient Name: Naya Rodriguez ? Procedure Date: 07/13/2014 2:51 PM ? Date of : 1950 ? Age: 64 ? Order #: [id number] ? Procedure: ? Colonoscopy Indications: ? Follow-up of left-sided chronic ? ulcerative colitis Providers: ? Davina Osullivan MD, Emily Quinn, ? RN, Luna Connors, RONY, Cam Ghosh ? Doug, Printer Operator Referring MD: ?Maximilian Fall MD Medicines: [...] 167 60 - 199 mg/dL [facility] Comment: Supplemental ranges: <140 mg/dL before meals <180 mg/dL all other times of the day Blood specimen (specimen) 07/13/2014 1:59 PM EDT 07/13/2014 1:59 PM EDT L Karthik Osullivan MD POINT OF CARE TEST O RDERABLES [facility] documented in this encounter Visit [...] uncomfortable) documented in this encounter Care Teams Aeronautical Test Engineer Relationship Specialty Start Date End Date Maximilian Fall MD [address] [place] [address] PCP - General 10/01/11 02/13/21 documented as of this encounter
--- OUTSIDE RECORDS SUMMARY | 2024-07-22 13:09 | XMS_ITS | Encounter Summary ---
Author Organization [facility] [place] [address] Care Team Providers Care Telemarketing Supervisor Name Role Phone Maximilian Fall MD Primary Care Provider [phone] Reason for Visit * Reason Onset Date Comments Medication Refill 04/05/2014 Encounter Details Date Type Department Care Team (Late st Contact Info) Description 04/05/2014 Refill [place] [address] Dion Barlow MD [facility] [place] [address] Social History Tobacco Use Types Packs/Day Years [...] 9:00 AM EDT Office [place] [address] Dion Barlow MD [facility] [place] [address] 09/01/2024 9:40 AM EDT Office Visit Cardiology at [address] [place] [address] Franky Shaver MD [facility] [place] [address] 09/01/2024 11:20 AM EDT Office Visit Dermatology at [facility] [address] [place] [address] Gómez Mercer MD [facility] [place] [address] 09/21/2024 2:45 PM EDT Office Visit Pain and Spine Center at [facility] [place] [address] Trung Hoyos MD [facility] [place] [address] documented as of this encounter Visit Diagnoses Not on filedocumented in this encounter Care Teams Telemarketing Supervisor Relationship Specialty Start Date End Date Maximilian Fall MD [address] [facility] [place] [address] PCP - General 10/01/11 02/13/21 documented as of this encounter
--- OUTSIDE RECORDS SUMMARY | 2024-07-22 13:09 | XMS_ITS | Encounter Summary ---
Author Organization [facility] Address [facility] [place] [address] Care Team Providers Care Strategic Planner Name Role Phone Maximilian Fall MD Primary Care Provider [phone] Encounter Details Date Type Department Care Team (Late st Contact Info) Description 09/11/2014 Orders [place] [phone] Bethany Trivedi RN Other ulcerative colitis (Primary [...] 9:00 AM EDT Office [place] [phone] Dion Barlow MD [facility] [place] [address] 09/01/2024 9:40 AM EDT Office Visit Cardiology at [address] [phone] Franky Shaver MD [facility] [place] [address] 09/01/2024 11:20 AM EDT Office Visit Dermatology at [facility] [address] [place] [address] Gómez Mercer MD [facility] DR ED[place] [address] 09/21/2024 2:45 PM EDT Office Visit Pain and Spine Center at [facility] [place] [address] Trung Hoyos MD [facility] [place] [address] documented as of this encounter Visit Diagnoses Diagnosis Other ulcerative colitis- Primary documented in this encounter Care Teams Strategic Planner Relationship Specialty Start Date End Date Maximilian Fall MD [address] [place] [address] PCP - General 10/01/11 02/13/21 documented as of this encounter
--- OUTSIDE RECORDS SUMMARY | 2024-07-22 13:09 | XMS_ITS | Encounter Summary ---
Author Organization [facility] Address [facility] [place] [address] Care Team Providers Care Salesperson Pets And Pet Supplies Name Role Phone Maximilian Fall MD Primary Care Provider [phone] Reason for Visit * Reason Onset Date Comments Medication Refill 11/03/2013 Encounter Details Date Type Department Care Team (Late st Contact Info) Description 11/03/2013 [place] [address] Dion Barlow MD [facility] [place] [address] Social History Tobacco Use Types Packs/Day Years [...] with Dr Barlow and it should be [id number] take 2 tabs twice a day or 2GM documented in this encounter Plan of Treatment Upcoming Encounters Date Type Department Care Team (Late st Contact Info) Description 08/15/2024 9:00 AM EDT Office [place] [address] Dion Barlow MD [facility] [place] [address] 09/01/2024 9:40 AM EDT Office Visit Cardiology at [address] [place] [address] Franky Shaver MD [facility] [place] [address] 09/01/2024 11:20 AM EDT Office Visit Dermatology at [place] [address] [place] [address] Gómez Mercer MD [facility] DR EDDIE [place] [address] 09/21/2024 2:45 PM EDT Office Visit [place] [address] Trung Hoyos MD [facility] [place] [address] documented as of this encounter Visit Diagnoses Not on filedocumented in this encounter Care Teams Salesperson Pets And Pet Supplies Relationship Specialty Start Date End Date Maximilian Fall MD [address] [place] [address] PCP - General 10/01/11 02/13/21 documented as of this encounter
--- OUTSIDE RECORDS SUMMARY | 2024-07-22 13:09 | XMS_ITS | Encounter Summary ---
Author Organization Replaced By [facility] Address [facility] [place] [address] Care Team Providers Care Design Studio Consultant Name Role Phone Maximilian Fall MD Primary Care Provider [phone] Encounter Details Date Type Department Care Team (Late st Contact Info) Description 07/13/2014 2:30 PM EDT - 07/13/2014 3:30 PM EDT [place] [address] Dion Osullivan MD [facility] [place] [address] COLONOSCOPY, DIAGNOSTIC (WRVU 3.26) Social History Tobacco [...] - 07/13/2014 4:14 PM EDT Please call [phone], before 5pm with problems, questions or concerns, after 5pm call the Hospital at [phone] and ask to speak to the Roll Filler aviation ordnance officer and the line o scribe operator will contactthat person for you. Discharge [...] through Care Everywhere. * COLONOSCOPY : POSTOP (KAZAKH) documented in this encounter Medications at [...] 07/13/2014 3:57 PM EDT [facility] [place] Operative Note Patient Name: Naya Rodriguez : [id number] MR#: [id number] Case Date: 07/13/2014 Surgeon: Surgeon(s) and Role: [...] 9:00 AM EDT Office [place] [address] Dion Osullivan MD [facility] [place] [address] 09/01/2024 9:40 AM EDT Office Visit Cardiology at [address] [place] [address] Franky Shaver MD [facility] [place] [address] 09/01/2024 11:20 AM EDT Office Visit Dermatology at [facility] [address] [place] [address] Gómez Mercer MD [facility] [place] [address] 09/21/2024 2:45 PM EDT Office Visit [place] [address] Trung Hoyos MD [facility] [place] [address] documented as of this encounter Procedures Procedure [...] (07/13/2014 3:58 PM EDT) Final Diagnosis ? [facility] ? Provider: ?? Dion OSULLIVAN ?Pt. Name: ?? NAYA RODRIGUEZ ? Acc #: ?[id number] ?Pt. ? Col Date: ?? 07/13/2014 ? [...] - Mucosal biopsies - R colon ? [facility] ? Provider: ?? Dion OSULLIVAN ?Pt. Name: ?? NAYA RODRIGUEZ ? Acc #: ?[id number] ?Pt. ? Col Date: ?? 07/13/2014 ? /Sex: ?1950,(64 years),Male ? Rec Date: ?? 07/13/2014 ? LOC: ?4T ? SURGICAL PATHOLOGY ? Clinical History: ? 64-year-old with a history of left sided UC ? Clinical Diagnosis: ? Same 07/14/2014 4:08 PM EDT [facility] GI Biopsy 07/13/2014 3:58 PM EDT 07/13/2014 3:58 PM EDT GI Biopsy 07/13/2014 3:58 PM EDT 07/13/2014 3:58 PM EDT GI Biopsy 07/13/2014 3:58 PM EDT 07/13/2014 3:58 PM EDT L Karthik Osullivan MD PATHOLOGY/CYTOLOGY O RDMELISSA Performing Organization Address City/[facility]/ZIP Co de Phone Number [place]GA [place] [address] * Specimen to Pathology (surgical or derm) (07/13/2014 3:58 PM EDT) AP Specimen 07/13/2014 3:58 PM EDT 07/13/2014 3:58 PM EDT Narrative JO-ANNGIOVANNI COLBERTIUM - 07/13/2014 3:58 PM EDT Specimen requisition ordered. ??Separate Pathology report to follow L Karthik Osullivan MD PATHOLOGY/CYTOLOGY O RDMELISSA Performing Organization Address [facility] Co de Phone Number DURGA [place] * Specimen to Pathology (surgical or derm) (07/13/2014 3:58 PM EDT) AP Specimen 07/13/2014 3:58 PM EDT 07/13/2014 3:58 PM EDT Narrative JO-ANNGIOVANNI COLBERTIUM - 07/13/2014 3:58 PM EDT Specimen requisition ordered. ??Separate Pathology report to follow L Karthik Osullivan MD PATHOLOGY/CYTOLOGY O CEE Performing Organization Address [facility] Co de Phone Number DURGA [place] * Specimen to Pathology (surgical or derm) (07/13/2014 3:58 PM EDT) AP Specimen 07/13/2014 3:58 PM EDT 07/13/2014 3:58 PM EDT Narrative DURGA COLBERTIUM - 07/13/2014 3:58 PM EDT Specimen requisition ordered. ??Separate Pathology report to follow L Karthik Osullivan MD PATHOLOGY/CYTOLOGY O RDERAOMAR Performing Organization Address City/[facility] Co de Phone Number D[place]GA [place] * COLONOSCOPY (07/13/2014 2:51 PM EDT) COLONOSCOPY [facility] Endoscopy Patient Name: Naya Rodriguez ? Procedure Date: 07/13/2014 2:51 PM ? Date of : 1950 ? Age: 64 ? Order #: [id number] ? Procedure: ? Colonoscopy Indications: ? Follow-up of left-sided chronic ? ulcerative colitis Providers: ? Davina Osullivan MD, Emily Quinn, ? RN, Luna Connors RN, Cam Ashley. ? Doug, Controls Technician Referring MD: ?Maximilian Fall MD Medicines: [...] Glucose, POC 167 60 - 199 mg/dL [facility] Comment: Supplemental ranges: <140 mg/dL before meals <180 mg/dL all other times of the day Blood specimen (specimen) 07/13/2014 1:59 PM EDT 07/13/2014 1:59 PM EDT L Karthik Osullivan MD POINT OF CARE TEST O RDERABLES Performing Organization Address City/State/[facility] Co al Phone Number [facility] documented in this encounter Visit [...] uncomfortable) documented in this encounter Care Teams Design Studio Consultant Relationship Specialty Start Date End Date Maximilian Fall MD [address] [place] [address] PCP - General 10/01/11 02/13/21 documented as of this encounter
--- OUTSIDE RECORDS SUMMARY | 2024-07-22 13:09 | XMS_ITS | Encounter Summary ---
Author Organization Formerly [facility] [place] [address] Care Team Providers Care Coat Baster Name Role Phone Maximilian Fall MD Primary Care Provider [phone] Reason for Visit * Reason Comments Follow-up Encounter Details Date Type Department Care Team (Late st Contact Info) Description 11/06/2015 11:00 AM EST Office [place] [address] Marcelle Weinberg, SHIP WASHER [facility] [place] [address] Chronic ulcerative enterocolitis, unspecified complication; Abdominal pain, [...] Progress Notes * Marcelle Weinberg Dg Conte, SHIP WASHER - 11/06/2015 10:28 AM EST Patient Active [...] COLONOSCOPY, DIAGNOSTIC performed by Dion OSULLIVAN at [facility] ENDOSCOPY ??? Pro sigmoidoscopy, diagnostic 03/16/2012 FLEXIBLE SIGMOIDOSCOPY performed by YUDI MALLOY at [facility] ENDOSCOPY ??? Upper gi endoscopy, exam 10/01/2012 UPPER GI ENDOSCOPY performed by Dion OSULLIVAN at [facility] ENDOSCOPY ??? Pro colonoscopy, diagnostic 07/13/2014 COLONOSCOPY, DIAGNOSTIC performed by Dion Osullivan MD at [facility] ENDOSCOPY Physical Exam Constitutional: He appears well-developed [...] a nurse. She told me that Dr. aFll is in clinic and she would relay [...] 9:00 AM EDT Office [place] [address] Dion Osullivan MD [facility] [place] [address] 09/01/2024 9:40 AM EDT Office Visit Cardiology at [address] [place] [address] Franky Shaver MD [facility] [place] [address] 09/01/2024 11:20 AM EDT Office Visit Dermatology at [facility] [address] [place] [address] Gómez Mercer MD [facility] [place] [address] 09/21/2024 2:45 PM EDT Office Visit Pain and Spine Center at [facility] [place] [address] Trung Hoyos MD [facility] [place] [address] documented as of this encounter Results * C. Difficile Screen (11/06/2015 2:30 PM EST) Pathologist [facility] C Diff Interp Negative Negative CERNER MILLENNIUM Stool specimen (specimen) 11/06/2015 2:30 PM EST 11/06/2015 2:30 PM EST Narrative Resulting Agency Comment Spec In Lab L Karthik Osullivan MD MICROBIOLOGY - GENER AL ORDERABLES [facility] * (ABNORMAL) Urinalysis with reflex Culture [...] Urine Dipstick Hazy(A) Clear CERNER MILLENNIUM Specific [place] Urine Automated 1.020 1.002 - 1.030 CERNER [...] complication documented in this encounter Care Teams Coat Baster Relationship Specialty Start Date End Date Maximilian Fall MD [address] [place] [address] PCP - General 10/01/11 02/13/21 documented as of this encounter
--- OUTSIDE RECORDS SUMMARY | 2024-07-22 13:09 | XMS_ITS | Encounter Summary ---
Author Organization [facility] [place] [address] Care Team Providers Care Cnc Laser Operator Name Role Phone Maximilian Fall MD Primary Care Provider [phone] Encounter Details Date Type Department Care Team (Late st Contact Info) Description 11/08/2015 Orders [place] [address] Marcelle Weinberg, BAG ADJUSTER [facility] [place] [address] Urinary tract infection without hematuria, site unspecified [...] this encounter Progress Notes * Marcelle Weinberg, BAG ADJUSTER - 11/08/2015 5:53 PM EST I spoke [...] UA Latest Range: Clear Hazy (A) Spec [place] UA Latest Range: 1.002-1.030 1.020 pH UA [...] 9:00 AM EDT Office [place] [address] [facility] [place] [place] [address] 09/01/2024 9:40 AM EDT Office Visit Cardiology at [address] [place] [address] [facility] [place] [address] 09/01/2024 11:20 AM EDT Office Visit Dermatology at [address] [place] [address] Mer[address] [facility] [place] [address] 09/21/2024 2:45 PM EDT Office Visit [place] [address] [facility] [place] [address] documented as of this encounter Visit Diagnoses Diagnosis Urinary tract infection without hematuria, site unspecified documented in this encounter Care Teams Cnc Laser Operator Relationship Specialty Start Date End Date Maximilian Fall MD [address] [place] [address] PCP - General 10/01/11 02/13/21 documented as of this encounter
--- OUTSIDE RECORDS SUMMARY | 2024-07-22 13:09 | XMS_ITS | Encounter Summary ---
Author Organization [facility] Address [facility] [place] [address] Care Team Providers Care Marketing Community Liaison Name Role Phone Maximilian Fall MD Primary Care Provider [phone] Encounter Details Date Type Department Care Team (Latest Contact Info) Description 11/06/2015 11:18 AM EST - 11/06/2015 11:59 PM [facility] Hospital Encounter XRay at [address] [place] [address] [facility] [place] [address] Pain in right hip; Bilateral low back [...] EDT Office [place] [address] [facility] [place] [address] 09/01/2024 9:40 AM EDT Office Visit Cardiology at [address] [phone] Franky Shaver MD [facility] [address] 09/01/2024 11:20 AM EDT Office Visit Dermatology at [facility] [address] [place] [address] [facility] DR EDDIE [place] [address] 09/21/2024 2:45 PM EDT Office Visit Pain and Spine Center at [facility] [place] [address] [facility] [place] [address] documented as of this encounter Procedures Procedure [...] complication documented in this encounter Care Teams Marketing Community Liaison Relationship Specialty Start Date End Date Maximilian Fall MD [address] [place] [address] PCP - General 10/01/11 02/13/21 documented as of this encounter
--- OUTSIDE RECORDS SUMMARY | 2024-07-22 13:09 | XMS_ITS | Encounter Summary ---
[place] [address] Care Team Providers Care Projects Manager Name Role Phone Maximilian Fall MD Primary Care Provider [phone] Encounter Details Date Type Department Care Team (Late st Contact Info) Description 03/21/2016 - 03/21/2016 11:59 PM EDT Hospital Encounter [place] [address] Dr Thomas Temporary Pain Discharge Disposition: Home [...] 9:00 AM EDT Office [place] [address] Dion Barlow MD [facility] [place] [address] 09/01/2024 9:40 AM EDT Office Visit Cardiology at [address] [phone] Franky Shaver MD [facility] [address] 09/01/2024 11:20 AM EDT Office Visit Dermatology at [address] [address] Gómez Mercer MD [facility] DR EDD[place] [address] 09/21/2024 2:45 PM EDT Office Visit [facility] [place] [address] Trung Hoyos MD [facility] [place] [address] documented as of this encounter Procedures Procedure Name Priority Date/Time Associated Diagnosis Comments FILM LIBRARY STORAGE ONLY CT ABDOMEN AND PELVIS Routine 03/21/2016 12:00 AM EDT Pain documented in this encounter Results * Film Library- Storage Only CT Abdomen & Pelvis (03/21/2016 12:00 AM EDT) Narrative [facility] - 03/21/2016 7:24 PM EDT This exam is for storage only and is auto-finalizing. Dr Leiva [facility] FILM LIBRARY ORD ERABLES [place], [place] documented in this encounter Visit Diagnoses Diagnosis Pain Generalized pain documented in this encounter Care Teams Projects Manager Relationship Specialty Start Date End Date Maximilian Fall MD [address] [place] [address] PCP - General 10/01/11 02/13/21 documented as of this encounter
--- OUTSIDE RECORDS SUMMARY | 2024-07-22 13:09 | XMS_ITS | Encounter Summary ---
[place] [address] Care Team Providers Care Quarter Backer Name Role Phone Maximilian Fall MD Primary Care Provider [phone] Encounter Details Date Type Department Care Team (Late st Contact Info) Description 03/13/2016 - 03/13/2016 11:59 PM EDT Hospital Encounter [place] [address] [address] Thomas Temporary Pain Discharge Disposition: Home [...] Office Visit [place] [address] Dion Barlow MD [facility] [place] [address] 09/01/2024 9:40 AM EDT Office Visit Cardiology at [address] [phone] Franky Shaver MD [facility] [place] [address] 09/01/2024 11:20 AM EDT Office Visit Dermatology at [address] [address] Gómez Mercer MD [facility] DR [place] [address] 09/21/2024 2:45 PM EDT Office Visit Pain [place] [address] Trung Hoyos MD [facility] [place] [address] documented as of this encounter Procedures Procedure Name Priority Date/Time Associated Diagnosis Comments FILM LIBRARY STORAGE ONLY CT ABDOMEN AND PELVIS Routine 03/13/2016 12:00 AM EDT Pain documented in this encounter Results * Film Library- Storage Only CT Abdomen & Pelvis (03/13/2016 12:00 AM EDT) Narrative [facility] - 03/22/2016 8:20 AM EDT This exam is for storage only and is auto-finalizing. Dr Leiva [facility] FILM LIBRARY ORD ERABLES [place] documented in this encounter Visit Diagnoses Diagnosis Pain Generalized pain documented in this encounter Care Teams Quarter Backer Relationship Specialty Start Date End Date Maximilian Fall MD [address] [place] [address] PCP - General 10/01/11 02/13/21 documented as of this encounter
--- OUTSIDE RECORDS SUMMARY | 2024-07-22 13:09 | XMS_ITS | Encounter Summary ---
Author Organization [facility] [place] [address] Care Team Providers Care C D Reactor Operator Name Role Phone Maximilian Fall MD Primary Care Provider [phone] Encounter Details Date Type Department Care Team (Late st Contact Info) Description 09/21/2015 Telephone [place] [address] Marcelle Weinberg, EXTRUSION DIE CORRECTOR [facility] [place] [address] Social History Tobacco Use Types Packs/Day Years [...] AM EDT Office Visit [place] [address] Dion Barlow MD [facility] [place] [address] 09/01/2024 9:40 AM EDT Office Visit Cardiology at [address] [address] Franky Shaver MD [facility] [place] [address] 09/01/2024 11:20 AM EDT Office Visit Dermatology at [facility] [address] [place] [address] Gómez Mercer MD [facility] DR EDDIE [place] [address] 09/21/2024 2:45 PM EDT Office Visit Pain and Spine Center at [facility] [place] [address] Trung Hoyos MD [facility] [place] [address] documented as of this encounter Visit Diagnoses Not on filedocumented in this encounter Care Teams C D Reactor Operator Relationship Specialty Start Date End Date Maximilian Fall MD [address] [place] [address] PCP - General 10/01/11 02/13/21 documented as of this encounter
--- OUTSIDE RECORDS SUMMARY | 2024-07-22 13:09 | XMS_ITS | Encounter Summary ---
Author Organization [facility]ly [facility] Address [facility] [place] [address] Care Team Providers Care Glass Fitter Name Role Phone Maximilian Fall MD Primary Care Provider [phone] Reason for Visit * Reason Comments Follow-up Encounter Details Date Type Department Care Team (Late st Contact Info) Description 06/05/2014 9:30 AM EDT [place] [address] Marcelle Weinberg, JAZMINE [facility] [place] [address] Other ulcerative colitis (Primary Dx) Discharge Disposition: [...] the sigmoid nl Repeat exam 11/27/11 ([facility] [...] 9:00 AM EDT Office [place] [address] Dion Barlow MD [facility] [place] [address] 09/01/2024 9:40 AM EDT Office Visit Cardiology at [address] [phone] Franky Shaver MD [facility] [place] [address] 09/01/2024 11:20 AM EDT Office Visit Dermatology at [facility] [address] [place] [address] Gómez Mercer MD [facility] DR EDDIE [place] [address] 09/21/2024 2:45 PM EDT Office Visit [place] [address] Trung Hoyos MD [facility] [place] [address] Scheduled Orders Name Type Priority Associated Diagnoses Orde r Schedule COLONOSCOPY Procedures Routine Other ulcerative colitis Ordered: 06/05/2014 documented as of this encounter Visit Diagnoses Diagnosis Other ulcerative colitis- Primary documented in this encounter Care Teams Glass Fitter Relationship Specialty Start Date End Date Maximilian Fall MD [address] [place] [address] PCP - General 10/01/11 02/13/21 documented as of this encounter
--- OUTSIDE RECORDS SUMMARY | 2024-07-22 13:09 | XMS_ITS | Encounter Summary ---
Author Organization [facility] Address [facility] [place] [address] Care Team Providers Care Compressed Gas Plant Worker Name Role Phone More Naylor MD Primary Care Provider [phone] Reason for Visit * Reason Comments Follow-up Encounter Details Date Type Department Care Team (Late st Contact Info) Description 03/06/2014 8:30 AM EDT Follow-[place] [address] Dion Barlow MD [facility] [place] [address] Ulcerative colitis, with rectal bleeding (Primary Dx) [...] ??? Ulcerative colitis Colonoscopy 04/08/10 ([facility]. [facility] [...] or most commonly, upper respiratory infections; positive ureo-jbtykr-msmakazp DNA antibodies, and rarely a lupus-like syndrome; [...] CC: MORE NAYLOR MD [address] [place] [address] documented in this encounter Plan of Treatment Upcoming Encounters Date Type Department Care Team (Late st Contact Info) Description 08/15/2024 9:00 AM EDT Office [place] [address] Dion Barlow MD [facility] [place] [address] 09/01/2024 9:40 AM EDT Office Visit Cardiology at [address] [address] Franky Shaver MD [facility] [place] [address] 09/01/2024 11:20 AM EDT Office Visit Dermatology at [facility] [address] [place] [address] Gómez Mercer MD [facility] [place] [address] 09/21/2024 2:45 PM EDT Office Visit [place] [address] Trung Hoyos MD [facility] [place] [address] documented as of this encounter Procedures Procedure [...] Urine Dipstick Clear Clear CERNER MILLENNIUM Specific [place] Urine Automated 1.019 1.002 - 1.030 CERNER [...] L Karthik Barlow MD URINE ORDERABLES CERNER LC Style.comENNIUM * Differential, Automated (03/06/2014 9:39 AM EDT) Neutrophil % 64.8 34.0 - 71.0 % [facility] MILLENNIUM Neutrophil Absolute 3.24 1.50 [...] Gran Absolute 0.01 0.00 - 0.05 x10(3)/mcL [facility] TIAGOENNIUM Blood specimen (specimen) 03/06/2014 9:39 AM EDT 03/06/2014 9:47 AM EDT L Karthik Barlow MD HEMATOLOGY ORDERABLE S [facility] * QuantiFERON-TB Gold (03/06/2014 9:39 AM EDT) Pathologist [facility] Quantiferon-TB Gold Negative Negative [facility] Comment: Nil (IU/mL)=0.03 TB Ag minus [...] Lab L Karthik Barlow MD CHEMISTRY ORDERABLES [facility] * High Sensitivity CRP (03/06/2014 9:39 AM [...] Primary documented in this encounter Care Teams Compressed Gas Plant Worker Relationship Specialty Start Date End Date More Naylor MD [address] [place] [address] PCP - General 10/01/11 02/13/21 documented as of this encounter
--- OUTSIDE RECORDS SUMMARY | 2024-07-22 13:09 | XMS_ITS | Encounter Summary ---
Author Organization [facility] Address [facility] [place] [address] Care Team Providers Care Buncher Operator Name Role Phone Maximilian Fall MD Primary Care Provider [phone] Encounter Details Date Type Department Care Team (Late st Contact Info) Description 11/05/2015 Telephone [place] [phone] Bethany Trivedi, RN Social History Tobacco Use [...] AM EDT Office Visit [place] [phone] Dion Barlow MD [facility] [address] 09/01/2024 9:40 AM EDT Office Visit Cardiology at [address] [phone] Franky Shaver MD [facility] [place] [address] 09/01/2024 11:20 AM EDT Office Visit Dermatology at [facility] [address] [place] [phone] Gómez Mercer MD [facility] [place] [address] 09/21/2024 2:45 PM EDT Office Visit [facility] [place] [phone] Trung Hoyos MD [facility] [address] documented as of this encounter Results * (ABNORMAL) Sedimentation rate (11/06/2015 10:24 AM EST) Sedimentation Rate Automated 22(H) 0 - 15 mm/hr DURGA Motostrano Blood specimen (specimen) 11/06/2015 10:24 AM EST 11/06/2015 10:28 AM EST Narrative Resulting Agency Comment Spec In Lab Dion Barlow MD HEMATOLOGY ORDERABLE S [facility] MILLENNIUM * (ABNORMAL) Comprehensive metabolic panel (non-fasting) (11/06/2015 10:24 AM EST) [facility] Glucose 81 65 - 199 mg/dL CERNER MILLENNIUM Comment:Diabetes: >=200 mg/d L plus symptoms Blood Urea Nitrogen 14 10 - 20 mg/dL CERNER MILLENNIUM Creatinine 1.15 0.80 - 1.50 mg/dL CERNER MILLENNIUM Comment: Please note that the pediatric reference intervals supplied above were not validated at [facility]. Results from pediatric patients should be interpreted [...] the following links into your internet browser. [email or web address] Blood specimen (specimen) 11/06/2015 10:24 AM EST 11/06/2015 10:28 AM EST Narrative Resulting Agency Comment Spec In Lab L Karthik Barlow MD CHEMISTRY ORDERABLES Performing Organization Address [facility] de Phone Number DURGA FREDERICK * High Sensitivity CRP (11/06/2015 10:24 AM EST) C-Reactive Protein High Sensitivity 7.9 mg/L [facility] Comment: Interpretations: 1) For accurate [...] Barlow MD CHEMISTRY ORDERABLES Performing Organization Address [facility] Phone Number DURGA FREDERICK documented in this encounter Visit Diagnoses Diagnosis Ulcerative colitis, without complications Diarrhea documented in this encounter Care Teams Buncher Operator Relationship Specialty Start Date End Date Maximilian Fall MD [address] [place] [address] [address] [place] [address] PCP - General 10/01/11 02/13/21 documented as of this encounter
--- OUTSIDE RECORDS SUMMARY | 2024-07-22 13:09 | XMS_ITS | Encounter Summary ---
Author Organization [facility] Address [facility] [place] [address] Care Team Providers Care Distiller Name Role Phone Maximilian Fall MD Primary Care Provider [phone] Reason for Visit * Reason Comments Follow-up Encounter Details Date Type Department Care Team (Late st Contact Info) Description 09/17/2015 4:00 PM EDT Office [place] [address] Marcelle Weinberg, JAZMINE [facility] [place] [address] Left sided colitis, unspecified complication Social History [...] ??? Hydrocele ??? 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 [...] 9:00 AM EDT Office [place] [phone] Dion Barlow MD [facility] [place] [address] 09/01/2024 9:40 AM EDT Office Visit Cardiology at [address] [address] Franky Shaver MD [facility] [address] 09/01/2024 11:20 AM EDT Office Visit Dermatology at [facility] [address] [place] [address] Gómez Mercer MD [facility] DR EDDIE [place] [address] 09/21/2024 2:45 PM EDT Office Visit [place] [phone] Trung Hoyos MD [facility] PAIN [place] [address] documented as of this encounter Procedures Procedure [...] MD HEMATOLOGY ORDERABLE S Performing Organization Address City/[facility]/ZIP Co de Phone Number CERGIOVANNI ORDOÑEZENNIUM [...] EDT) C-Reactive Protein High Sensitivity 2.9 mg/L [facility] Comment: Interpretations: 1) For accurate cardiac [...] ORDERABLES Performing Organization Address [facility] de Phone Number [facility] * (ABNORMAL) Sedimentation rate (09/17/2015 4:30 PM EDT) [facility] Sedimentation Rate Automated 17(H) 0 - 15 mm/hr [facility] Blood specimen (specimen) 09/17/2015 4:30 PM EDT 09/17/2015 4:33 PM EDT Narrative Resulting Agency Comment Spec In Lab L Karthik Barlow MD HEMATOLOGY ORDERABLE S Performing Organization Address [facility] Co de Phone Number [facility] * (ABNORMAL) CMP w/fasting Glucose (09/17/2015 [...] of Diabetes Mellitus, Position Statement from the [place] [employer]. ??Diabetes Care, Volume 33, Supplement 1, Nov 2009 Blood Urea Nitrogen 17 10 - 20 mg/dL CERNER MILLENNIUM Creatinine 1.10 0.80 - 1.50 mg/dL CERNER MILLENNIUM Comment: Please note that the pediatric reference intervals supplied above were not validated at [facility]. Results from pediatric patients should be interpreted [...] the following links into your internet browser. [email or web address] Blood specimen (specimen) 09/17/2015 4:30 PM EDT 09/17/2015 4:33 PM EDT Narrative Resulting Agency Comment Spec In Lab L Karthik Barlow MD CHEMISTRY ORDERABLES DURGA FREDERICK documented in this encounter Visit Diagnoses Diagnosis Left sided colitis, unspecified complication documented in this encounter Care Teams Distiller Relationship Specialty Start Date End Date Maximilain Fall MD [address] [place] [address] PCP - General 10/01/11 02/13/21 documented as of this encounter
--- OUTSIDE RECORDS SUMMARY | 2024-07-22 13:09 | XMS_ITS | Encounter Summary ---
Author Organization [facility] Address [facility] [place] [address] Care Team Providers Care Radiologist Name Role Phone Maximilian Fall MD Primary Care Provider [phone] Encounter Details Date Type Department Care Team (Late st Contact Info) Description 10/01/2012 4:15 PM EST - 10/01/2012 4:45 PM EST [place] [address] Dion Osullivan MD [facility] [place] [address] UPPER GI ENDOSCOPY Social History Tobacco Use [...] GI ENDOSCOPY: WHAT TO EXPECT AT HOME ([place]) documented in this encounter Medications at [...] PM EST * Op Note - Dion Oslulivan MD - 10/01/2012 5:07 PM EST [facility] Operative Note Patient Name: Naya Rodriguez : [id number] MR#: [id number] Case Date: 10/01/2012 Surgeon: Surgeon(s) and Role: [...] 9:00 AM EDT Office [place] [address] Dion Osullivan MD [facility] [place] [address] 09/01/2024 9:40 AM EDT Office Visit Cardiology at [address] [phone] Franky Shaver MD [facility] [place] [address] 09/01/2024 11:20 AM EDT Office Visit Dermatology at [address] [place] [place] [phone] Gómez Mercer MD [facility] [place] [address] 09/21/2024 2:45 PM EDT Office Visit [facility] [place] [address] Trung Hoyos MD [facility] [place] [address] documented as of this encounter Procedures Procedure [...] & [facility] ? Provider: ?? Dion OSULLIVAN ?Pt. Name: ?? NAYA RODRIGUEZ ? Acc #: ?[id number] ?Pt. ? Col Date: ?? 10/01/2012 ? [...] MD PATHOLOGY/CYTOLOGY O CEE Performing Organization Address City/[facility] Co de Phone Number DRUGA FREDERICK * Specimen to Pathology (surgical or derm) (10/01/2012 5:09 PM EST) AP Specimen 10/01/2012 5:09 PM EST 10/01/2012 5:09 PM EST Narrative DURGA ORDOÑEZBANNERIUM - 10/01/2012 5:09 PM EST Specimen requisition ordered. ??Separate Pathology report to follow L Karthik Osullivan MD PATHOLOGY/CYTOLOGY O CEE [facility] * UPPER GI ENDOSCOPY (10/01/2012 4:41 PM EST) UPPER GI ENDOSCOPY [facility] Endoscopy Patient Name: Naya Rodriguez ? Procedure Date: 10/01/2012 4:41 PM ? Date of : 1950 ? Age: 62 ? Order #: [id number] ? Procedure: ? Upper GI endoscopy Indications: ? Epigastric abdominal pain Providers: ? L Karthik Osullivan MD, Alannah Singletary, ? RN, Mona Osborne, Experience Planning Strategist Referring : ?Maximilian Fall MD Medicines: ? [...] GENERAL SURGICAL ORD ERAOMAR Performing Organization Address City/[facility] Co de Phone Number [facility]ATION * POCT GLUCOSE (10/01/2012 4:27 PM EST) Glucose, POC 84 60 - 199 mg/dL [facility] Comment: Supplemental ranges: <110 mg/dL before [...] RN) documented in this encounter Care Teams Radiologist Relationship Specialty Start Date End Date Maximilian Fall MD [address] [place] [address] PCP - General 10/01/11 02/13/21 documented as of this encounter
--- OUTSIDE RECORDS SUMMARY | 2024-07-22 13:09 | XMS_ITS | Encounter Summary ---
Author Organization [facility] Address [facility] [place] [address] Care Team Providers Care Senior Telecommunications Specialist Name Role Phone Maximilian Fall MD Primary Care Provider Encounter Details Date Type Department Care Team (Latest Contact Info) Description 11/06/2015 11:16 AM EST - 11/06/2015 11:17 AM [facility] Hospital Encounter XRay at [address] [place] [address] Dion Barlow MD [facility] [place] [address] Pain in right hip; Bilateral low back [...] EDT Office [place] [address] Dion Barlow MD [facility] [place] [address] 09/01/2024 9:40 AM EDT Office Visit Cardiology at [address] [phone] Franky Shaver MD [facility] [place] [address] 09/01/2024 11:20 AM EDT Office Visit Dermatology at [facility] [address] [place] [phone] Gómez Mercer MD [facility] DR EDD[place] [address] 09/21/2024 2:45 PM EDT Office Visit Pain and Spine Center at [facility] [place] [address] Trung Hoyos MD [facility] DR [place] [address] documented as of this encounter Procedures Procedure [...] documented in this encounter Care Teams Senior Telecommunications Specialist Relationship Specialty Start Date End Date Maximilian aFll MD [address] [place] [address] PCP - General 10/01/11 02/13/21 documented as of this encounter
--- OUTSIDE RECORDS SUMMARY | 2024-07-22 13:10 | XMS_ITS | Encounter Summary ---
Author Organization [facility] Address [facility] [place] [address] Care Team Providers Care Records Management Technician Name Role Phone Maximilian Fall MD Primary Care Provider [phone] Encounter Details Date Type Department Care Team (Late st Contact Info) Description 03/02/2012 Orders [place] [phone] Dion Barlow MD [facility] [place] [place] [address] Exam for clinical research (Primary Dx) Social [...] 9:00 AM EDT Office [place] [phone] Dion Barlow MD [facility] [place] [address] 09/01/2024 9:40 AM EDT Office Visit Cardiology at [address] [place] [address] Franky Shaver MD [facility] [place] [address] 09/01/2024 11:20 AM EDT Office Visit Dermatology at [facility] [address] [place] [address] Gómez Mercer MD [facility] DR EDD[place] [address] 09/21/2024 2:45 PM EDT Office Visit Pain and Spine Center at [facility] [place] [address] Trung Hoyos MD [facility] [place] [address] documented as of this encounter Results * [...] trial documented in this encounter Care Teams Records Management Technician Relationship Specialty Start Date End Date Maximilian Fall MD [address] [place] [address] PCP - General 10/01/11 02/13/21 documented as of this encounter
--- OUTSIDE RECORDS SUMMARY | 2024-07-22 13:10 | XMS_ITS | Encounter Summary ---
Author Organization [facility] Address [facility] [place] [address] Care Team Providers Care Support Manager Name Role Phone Maximilian Fall MD Primary Care Provider [phone] Reason for Visit * Reason Onset Date Comments Research 02/20/2012 discuss [facility] Encounter Details Date Type Department Care Team (Late st Contact Info) Description 02/20/2012 Telephone [place] [address] Mica Gore, JAZMINE [facility] [place] [address] Research (discuss [facility]) Social History Tobacco [...] further discuss the study. I informed Mr. oRdriguez that I would seehim April 21. I asked him to call before than should he have any questions, or should he be interested in starting the study earlier. documented in this encounter Plan of Treatment Upcoming Encounters Date Type Department Care Team (Late st Contact Info) Description 08/15/2024 9:00 AM EDT Office [place] [phone] Dion Barlow MD [facility] [place] [address] 09/01/2024 9:40 AM EDT Office Visit Cardiology at [address] [address] Franky Shaver MD [facility] [place] [address] 09/01/2024 11:20 AM EDT Office Visit Dermatology at [facility] [address] [place] [address] Gómez Mercer MD [facility] DR [place] [address] 09/21/2024 2:45 PM EDT Office Visit [facility] [place] [address] Trung Hoyos MD [facility] [place] [address] documented as of this encounter Visit Diagnoses Not on filedocumented in this encounter Care Teams Support Manager Relationship Specialty Start Date End Date Maximilian Fall MD [address] [place] [address] PCP - General 10/01/11 02/13/21 documented as of this encounter
--- OUTSIDE RECORDS SUMMARY | 2024-07-22 13:10 | XMS_ITS | Encounter Summary ---
Author Organization [facility] Address [facility] [place] [address] Care Team Providers Care Client Evaluator Name Role Phone Maximilian Fall MD Primary Care Provider [phone] Encounter Details Date Type Department Care Team (Late st Contact Info) Description 03/16/2012 2:30 PM EDT - 03/16/2012 3:30 PM EDT [place] [address] Enrico Tellez MD [facility] [place] [address] FLEXIBLE SIGMOIDOSCOPY (WRVU 0.84) Social History Tobacco [...] please contact your M. D. Please call [phone] BEFORE 5PM with any questions or concerns, AFTER 5PM call [phone] andask to speak to the Mirror Inspector electronic sales and service technician. * Patient Instructions* Enrico Tellez MD - 03/16/2012 1:27 PM EDT Please see Recommendations in the Provation procedure report which is documented in the procedural note in E-DH. * Attachments The following attachments cannot be sent through Care Everywhere. * SIGMOIDOSCOPY: WHAT TO EXPECT AT HOME (SAMI) documented in this encounter Medications at Time [...] 9:00 AM EDT Office [place] [phone] Dion Barlow MD [facility] [place] [address] 09/01/2024 9:40 AM EDT Office Visit Cardiology at [address] [place] [phone] Franky Shaver MD [facility] [address] 09/01/2024 11:20 AM EDT Office Visit Dermatology at [place] [address] [place] [address] Gómez Mercer MD [facility] [place] [address] 09/21/2024 2:45 PM EDT Office Visit [place] [address] Trung Hoyos MD [facility] [place] [place] [address] documented as of this encounter Procedures Procedure Name Priority Date/Time Associated Diagnosis Comments SURGICAL PATHOLOGY REPORT Routine 03/16/2012 4:52 PM EDT SPECIMEN TO PATHOLOGY Routine 03/16/2012 2:09 PM EDT FLEXIBLE SIGMOIDOSCOPY (WRVU 0.84) 03/16/2012 1:27 PM EDT study patient POCT GLUCOSE Routine 03/16/2012 1:16 PM EDT documented in this encounter Results * SURGICAL PATHOLOGY REPORT (03/16/2012 4:52 PM EDT) Surgical Pathology Report ? [facility] ? Provider: ?? ENRICO TELLEZ ?Pt. Name: ?? NAYA RODRIGUEZ ? Acc #: ?[id number] ?Pt. ? Col Date: ?? 03/16/2012 ? [...] PATHOLOGY/CYTOLOGY O CEE Performing Organization Address [facility] de Phone Number DURGA FREDERICK * Specimen to Pathology (surgical or derm) (03/16/2012 2:09 PM EDT) AP Specimen 03/16/2012 2:09 PM EDT 03/16/2012 2:09 PM EDT Narrative DURGA TIAGOTADEOIUM - 03/16/2012 2:09 PM EDT Specimen requisition ordered. ??Separate Pathology report to follow Enrico Tellez MD PATHOLOGY/CYTOLOGY O CEE Performing Organization Address [facility] de Phone Number DURGA [...] CARE TEST O CEE Performing Organization Address [facility] de Phone Number DURGA FREDERICK documented [...] 1334 (Given - Provid er: April A [place], RN)1337 (Given - Provider: April Archibald RN)1343 (Given - Provider: April Archibald RN) documented in this encounter Care Teams Client Evaluator Relationship Specialty Start Date End Date Maximilian Fall MD [address] [place] [address] PCP - General 10/01/11 02/13/21 documented as of this encounter
--- OUTSIDE RECORDS SUMMARY | 2024-07-22 13:10 | XMS_ITS | Encounter Summary ---
Author Organization [facility] Address [facility] [place] [address] Care Team Providers Care Executive Consultant Name Role Phone More Naylor MD Primary Care Provider [phone] Reason for Visit * Reason Comments Follow-up Encounter Details Date Type Department Care Team (Late st Contact Info) Description 01/28/2012 3:00 PM EST [place] [address] Dion Barlow MD [facility] [place] [address] Ulcerative colitis (Primary Dx) Discharge Disposition: Home [...] Ulcerative colitis Colonoscopy 04/08/10 ([facility]. [place] [...] first time since his colonoscopy in early [facility]. At that time, he had a patch [...] sooner of symptoms worsen. Davina Barlow MD Brass Cutterloader unloader Section of [place]astroenter[place] [address] CC: MORE NAYLOR MD [address] [facility] [address] documented in this encounter Plan of Treatment Upcoming Encounters Date Type Department Care Team (Late st Contact Info) Description 08/15/2024 9:00 AM EDT Office [place] [address] Dion Barlow MD [facility] [place] [address] 09/01/2024 9:40 AM EDT Office Visit Cardiology at [address] [phone] Franky Shaver MD [facility] [place] [address] 09/01/2024 11:20 AM EDT Office Visit Dermatology at [address] [phone] Gómez Mercer MD [facility] [address] 09/21/2024 2:45 PM EDT Office Visit [place] [phone] Trung Hoyos MD [facility] [place] [address] documented as of this encounter Visit Diagnoses Diagnosis Ulcerative colitis- Primary Ulcerative colitis, unspecified documented in this encounter Care Teams Executive Consultant Relationship Specialty Start Date End Date More Naylor MD [address] [place] [address] PCP - General 10/01/11 02/13/21 documented as of this encounter
--- OUTSIDE RECORDS SUMMARY | 2024-07-22 13:10 | XMS_ITS | Encounter Summary ---
Author Organization [facility] Address [facility] [place] [address] Care Team Providers Care Web Content Director Name Role Phone More Naylor MD Primary Care Provider [phone] Reason for Visit * Reason Comments Follow-up Encounter Details Date Type Department Care Team (Late st Contact Info) Description 09/20/2012 10:00 AM EDT Follow-[place] [address] Dion Barlow MD [facility] [place] [place] [address] Ulcerative colitis (Primary Dx); Dyspepsia; UC (ulcerative [...] ??? Ulcerative colitis Colonoscopy 04/08/10 (Dr. Gomes [facility]) - inflammation only within the rectum and sigmoid; extent of the exam was to the hepatic flexure; biopsies proximal to the sigmoid nl Repeat exam 11/27/11 ([facility] [...] has left-sided ulcerative colitis with persistently active wezt-lf-sudklsdu symptoms andmildly active disease endoscopically. His colitis [...] CC: MORE NAYLOR MD [address] [facility] [address] documented in this encounter Plan of Treatment Upcoming Encounters Date Type Department Care Team (Late st Contact Info) Description 08/15/2024 9:00 AM EDT Office Visit [place] [phone] Dion Barlow MD [facility] [place] [address] 09/01/2024 9:40 AM EDT Office Visit Cardiology at [address] [address] Franky Shaver MD [facility] [place] [address] 09/01/2024 11:20 AM EDT Office Visit Dermatology at [address] [address] Gómez Mercer MD [facility] [place] [address] 09/21/2024 2:45 PM EDT Office Visit [facility] [place] [phone] Trung Hoyos MD [facility] [place] [address] documented as of this encounter Procedures Procedure [...] MD HEMATOLOGY ORDERABLE S Performing Organization Address [facility] Co de Phone Number DURGA FREDERICK * (ABNORMAL) TSH (09/20/2012 11:17 AM EDT) Thyroid Stimulating Hormone 4.77(H) 0.27 - 4.20 mcIU/mL DURGA COLBERTIUM Blood specimen (specimen) 09/20/2012 11:17 AM EDT 09/20/2012 11:23 AM EDT Narrative Resulting Agency Comment Spec In Lab L Karthik Barlow MD CHEMISTRY ORDERABLES Performing Organization Address [facility] Phone Number DURGA COLBERTIUM * Lipase (09/20/2012 11:17 AM EDT) Lipase 32 0 - 60 unit/L DURGA COLBERTIUM Blood specimen (specimen) 09/20/2012 11:17 AM EDT 09/20/2012 11:23 AM EDT Narrative Resulting Agency Comment Spec In Lab L Karthik Barlow MD CHEMISTRY ORDERABLES Performing Organization Address [facility] Phone Number DURGA COLBERTIUM * High Sensitivity CRP (09/20/2012 11:17 AM EDT) C-Reactive Protein High Sensitivity 3.7 mg/L [facility] Comment: Interpretations: 1) For cardiac [...] MD CHEMISTRY ORDERABLES [facility] * (ABNORMAL) CMP w/fasting Glucose (09/20/2012 11:17 AM EDT) Glucose Fasting 110(H) 65 - 99 mg/dL [facility] Comment: ?Fasting* Glucose Interpretive Criteria Normal [...] Mellitus, Position Statement from the [place] Diabetes Association. ??Diabetes Care, Volume 33, Supplement 1, Nov 2009 Blood Urea Nitrogen 13 10 - 20 mg/dL CERNER MILLENNIUM Creatinine 0.81 0.80 - 1.50 mg/dL CERNER MILLENNIUM Comment: Please note that the pediatric reference intervals supplied above were not validated at [facility]. Results from pediatric patients [...] unspecified documented in this encounter Care Teams Web Content Director Relationship Specialty Start Date End Date More Naylor MD [address] [place] [address] PCP - General 10/01/11 02/13/21 documented as of this encounter
--- OUTSIDE RECORDS SUMMARY | 2024-07-22 13:10 | XMS_ITS | Encounter Summary ---
Author Organization [facility] Address [facility] [address] Care Team Providers Care Surface Mount Technology Operator Name Role Phone Maximilian Fall MD Primary Care Provider [phone] Encounter Details Date Type Department Care Team (Latest Contact Info) Description 03/16/2012 12:32 PM EDT - 03/16/2012 3:00 PM EDT Hospital Encounter [place] [address] [facility] [place] [address] Discharge Disposition: Home Social History Tobacco Use [...] please contact your M. D. Please call [phone] BEFORE 5PM with any questions or concerns, AFTER 5PM call [phone] andask to speak to the Aligner Typewriter reconstructive dentist. * Patient Instructions* Enrico Tellez MD - 03/16/2012 1:27 PM EDT Please see Recommendations in the Provation procedure report which is documented in the procedural note in E-DH. * Attachments The following attachments cannot be sent through Care Everywhere. * SIGMOIDOSCOPY: WHAT TO EXPECT AT HOME (MONEGASQUE) documented in this encounter Medications at Time [...] EDT Office [place] [address] [facility] [place] [address] 09/01/2024 9:40 AM EDT Office Visit Cardiology at [address] [place] [address] [facility] [place] [address] 09/01/2024 11:20 AM EDT Office Visit Dermatology at [facility] [address] [place] [address] [address]z Mer[address] [facility] [place] [address] 09/21/2024 2:45 PM EDT Office Visit [facility] [place] [address] [facility] [place] [address] documented as of this encounter Procedures Procedure Name Priority Date/Time Associated Diagnosis Comments SURGICAL PATHOLOGY REPORT Routine 03/16/2012 4:52 PM EDT SPECIMEN TO PATHOLOGY Routine 03/16/2012 2:09 PM EDT FLEXIBLE SIGMOIDOSCOPY (WRVU 0.84) 03/16/2012 1:27 PM EDT study patient POCT GLUCOSE Routine 03/16/2012 1:16 PM EDT documented in this encounter Results * SURGICAL PATHOLOGY REPORT (03/16/2012 4:52 PM EDT) Surgical Pathology Report ? [facility] ? Provider: ?? ENRICO TELLEZ ?Pt. Name: ?? SHANTNAYA ? Acc #: ?[id number] ?Pt. ? Col Date: ?? 03/16/2012 ? [...] MD PATHOLOGY/CYTOLOGY O CEE Performing Organization Address [facility] de Phone Number DURGA FREDERICK * Specimen to Pathology (surgical or derm) (03/16/2012 2:09 PM EDT) AP Specimen 03/16/2012 2:09 PM EDT 03/16/2012 2:09 PM EDT Narrative DURGA TIAGOENNIUM - 03/16/2012 2:09 PM EDT Specimen requisition ordered. ??Separate Pathology report to follow Enrico Tellez MD PATHOLOGY/CYTOLOGY O CEE Performing Organization Address [facility] de Phone Number DURGA FREDERICK * [...] O CEE Performing Organization Address [facility] de Phone Number DURGA FREDERICK documented [...] RN) documented in this encounter Care Teams Surface Mount Technology Operator Relationship Specialty Start Date End Date Maximilian Fall MD [address] [place] [address] PCP - General 10/01/11 02/13/21 documented as of this encounter
--- OUTSIDE RECORDS SUMMARY | 2024-07-22 13:10 | XMS_ITS | Encounter Summary ---
Author Organization [facility] Address [facility] [place] [address] Care Team Providers Care Investments Manager Name Role Phone Maximilian Fall MD Primary Care Provider [phone] Encounter Details Date Type Department Care Team (Late st Contact Info) Description 03/16/2012 Orders [place] [phone] Dion Barlow MD [facility] [place] [address] Ulcerative colitis (Primary Dx) Social History Tobacco [...] 9:00 AM EDT Office [place] [phone] Dion Barlow MD [facility] [place] [address] 09/01/2024 9:40 AM EDT Office Visit Cardiology at [address] [place] [phone] Franky Shaver MD [facility] [place] [address] 09/01/2024 11:20 AM EDT Office Visit Dermatology at [facility] [address] [place] [phone] Gómez Mercer MD [facility] DR [place] [address] 09/21/2024 2:45 PM EDT Office Visit [place] [phone] Trung Hoyos MD [facility] [place] [address] documented as of this encounter Visit Diagnoses Diagnosis Ulcerative colitis- Primary Ulcerative colitis, unspecified documented in this encounter Care Teams Investments Manager Relationship Specialty Start Date End Date Maximilian Fall MD [address] [facility] [address] [place] [address] PCP - General 10/01/11 02/13/21 documented as of this encounter
--- OUTSIDE RECORDS SUMMARY | 2024-07-22 13:10 | XMS_ITS | Encounter Summary ---
Author Organization [facility] Address [facility] [place] [address] Care Team Providers Care Sander Portable Machine Name Role Phone Maximilian Fall MD Primary Care Provider [phone] Encounter Details Date Type Department Care Team (Latest Contact Info) Description 11/27/2011 11:49 AM EST - 11/27/2011 2:45 PM EST Hospital [place] [address] Dion Osullivan MD [facility] [place] [address] Discharge Disposition: Home Social History Tobacco Use [...] - 11/27/2011 2:37 PM EST Please call [phone], before 5pm with problems, questions or concerns, after 5pm call the Hospital at [phone] and ask to speak to the Acting Instructor applications support specialist and the precipitator operator will contactthat person for you. Discharge [...] MD - 11/27/2011 1:06 PM EST [facility] Operative Note Patient Name: Naya Rodriguez : [id number] MR#: [id number] Case Date: 11/27/2011 Surgeon: Surgeon(s) and Role: * Dion OSULLIVAN MD - Primary Please see the Provation procedure report in the Procedures tab in eDH. documented in this encounter Plan of Treatment Upcoming Encounters Date Type Department Care Team (Late st Contact Info) Description 08/15/2024 9:00 AM EDT [place] [address] Dion Osullivan MD [facility] [place] [address] 09/01/2024 9:40 AM EDT Office Visit Cardiology at [address] [address] Franky Shaver MD [facility] [place] [address] 09/01/2024 11:20 AM EDT Office Visit Dermatology at [address] [phone] Gómez Mercer MD [facility] [place] [address] 09/21/2024 2:45 PM EDT Office Visit [place] [address] Trung Hoyos MD [facility] [place] [address] documented as of this encounter Procedures Procedure [...] 4:38 PM EST) Surgical Pathology Report ? [facility] ? Provider: ?? Dion OSULLIVAN ?Pt. Name: ?? SHANTNAYA ? Acc #: ?[id number] ?Pt. ? Col Date: ?? 11/27/2011 ?/Sex: [...] Stephen, rubbery mucosal polyp, the larger ? [facility] ? Provider: ?? Dion OSULLIVAN ?Pt. Name: ?? NAYA RODRIGUEZ ? Acc #: ?[id number] ?Pt. ? Col Date: ?? 11/27/2011 ?/Sex: [...] O CEE Performing Organization Address [facility] Co de Phone Number [facility] * Specimen to Pathology (surgical or derm) (11/27/2011 1:53 PM EST) AP Specimen 11/27/2011 1:53 PM EST 11/27/2011 1:53 PM EST Narrative DURGA FREDERICK - 11/27/2011 1:53 PM EST Specimen requisition ordered. ??Separate Pathology report to follow L Karthik Osullivan MD PATHOLOGY/CYTOLOGY O CEE Performing Organization Address [facility] Co de Phone Number [facility] * Specimen to Pathology (surgical or derm) (11/27/2011 1:53 PM EST) AP Specimen 11/27/2011 1:53 PM EST 11/27/2011 1:53 PM EST Narrative DURGA FREDERICK - 11/27/2011 1:53 PM EST Specimen requisition ordered. ??Separate Pathology report to follow L Karthik Osullivan MD PATHOLOGY/CYTOLOGY O CEE Performing Organization Address [facility] Co de Phone Number [facility] * COLONOSCOPY (11/27/2011 1:01 PM EST) COLONOSCOPY [facility] Endoscopy Patient Name: Naya Rodriguez ? Procedure Date: 11/27/2011 01:01:31 PM ? Date of : 1950 ? Age: 61 ? Procedure: ? Colonoscopy Indications: ? Follow-up of left-sided chronic ? ulcerative colitis Providers: ? L Karthik Osullivan MD, Tyron Cee, ? RN, Qing López, Kitchenwhere Maker Referring MD: ?Maximilian Fall MD Medicines: ? [...] time) documented in this encounter Care Teams Sander Portable Machine Relationship Specialty Start Date End Date Maximilian Fall MD [address] [place] [address] PCP - General 10/01/11 02/13/21 documented as of this encounter
--- OUTSIDE RECORDS SUMMARY | 2024-07-22 13:10 | XMS_ITS | Encounter Summary ---
Author Organization [facility] Address [facility] [place] [address] Care Team Providers Care Fresh Foods Cake Decorator Name Role Phone More Naylor MD Primary Care Provider [phone] Reason for Visit * Reason Comments GI Problem Encounter Details Date Type Department Care Team (Late st Contact Info) Description 10/01/2011 9:30 AM EST Office [place] [address] Dion Barlow MD [facility] DR GASTROENTER[place] [address] Ulcerative colitis (Primary Dx) Discharge Disposition: Home [...] 1. Stool studies to be done at [facility] - will give instructions and a [...] ??? Ulcerative colitis Colonoscopy 04/08/10 (Dr. Gomes [facility]) - [...] has three kids. 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 He quit smoking in 1991 after [...] adenopathy and no thyromegaly. HEENT: PERRL, EOMI, ART DEALER and OP clear without ulceration or lesions. [...] 1. Stool studies to be done at [facility] - will give instructions, an order, [...] questions 50 minutes of this 60 minute hfpk-fj-gqsj encounter were spent counseling the patient in the issuesoutlined above. Davina Barlow MD Construction Carpenterdelicatessen department manager Section of Gastroenterology [place] [address] [email or web address] CC: MORE NAYLOR MD [address] [facility] [address] documented in this encounter Plan of Treatment Upcoming Encounters Date Type Department Care Team (Late st Contact Info) Description 08/15/2024 9:00 AM EDT Office Visit [place] [address] Dion Barlow MD [facility] GASTROENTER[place] [address] 09/01/2024 9:40 AM EDT Office Visit Cardiology at [address] [phone] Franky Shaver MD [facility] [place] [address] 09/01/2024 11:20 AM EDT Office Visit Dermatology at [address] [place] [address] Gómez Mercer MD [facility] DR EDDIE SANCHEZ-[place]MAT[place] [address] 09/21/2024 2:45 PM EDT Office Visit Pain and Spine Center at [facility] [place] [address] Trung Hoyos MD [facility] PAIN [place]NA[place] [address] documented as of this encounter Visit Diagnoses Diagnosis Ulcerative colitis- Primary Ulcerative colitis, unspecified documented in this encounter Care Teams Fresh Foods Cake Decorator Relationship Specialty Start Date End Date More Naylor MD [address] [place] [address] PCP - General 10/01/11 02/13/21 documented as of this encounter
--- OUTSIDE RECORDS SUMMARY | 2024-07-22 13:10 | XMS_ITS | Encounter Summary ---
Author Organization [facility] [place] [address] Care Team Providers Care Code Clerk Name Role Phone Maximilian Fall MD Primary Care Provider [phone] Encounter Details Date Type Department Care Team (Late st Contact Info) Description 03/03/2012 Orders [place] [phone] Mica Gore APRN [facility] [place] [address] Ulcerative colitis (Primary Dx) Social History Tobacco [...] 9:00 AM EDT Office [place] [phone] Dion Barlow MD [facility] [place] [address] 09/01/2024 9:40 AM EDT Office Visit Cardiology at [address] [place] [address] Franky Shaver MD [facility] [place] [address] 09/01/2024 11:20 AM EDT Office Visit Dermatology at [facility] [address] [place] [address] Gómez Mercer MD [facility] DR EDDIE [place] [address] 09/21/2024 2:45 PM EDT Office Visit [place] [phone] Trung Hoyos MD [facility] [place] [address] documented as of this encounter Procedures Procedure Name Priority Date/Time Associated Diagnosis Comments FLEXIBLE SIGMOIDOSCOPY Routine 2 1:15 PM EDT Ulcerative colitis documented in this encounter Results * FLEXIBLE SIGMOIDOSCOPY (03/16/2012 1:15 PM EDT) [facility] Signature FLEXIBLE SIGMOIDOSCOPY [facility] Endoscopy Patient Name: Brian Rodriguez ? Procedure Date: 03/16/2012 1:15 PM ? Date of : 1950 ? Age: 61 ? Order #: [id number] ? Procedure: ? Flexible Sigmoidoscopy Indications: ? pt with active UC, assess severity ? prior to entry in MTX study Providers: ? Enrico Tellez MD, April Augustine ? RONY Archibald, Kingsley Oneal, ? Feller Hand Referring MD: ?Maximilian Fall MD Requesting Provider: [...] unspecified documented in this encounter Care Teams Code Clerk Relationship Specialty Start Date End Date Maximilian Fall MD [address] [place] [address] PCP - General 10/01/11 02/13/21 documented as of this encounter
--- OUTSIDE RECORDS SUMMARY | 2024-07-22 13:10 | XMS_ITS | Encounter Summary ---
Author Organization [facility] Address [facility] [place] [address] Care Team Providers Care Independent Insurance Adjuster Name Role Phone More Naylor MD Primary Care Provider [phone] Reason for Visit * Reason Comments Follow-up Encounter Details Date Type Department Care Team (Late st Contact Info) Description 04/02/2012 12:30 PM EDT [place] [address] Marcelle Weinberg, JAZMINE [facility] [place] [address] UC (ulcerative colitis) (Primary Dx) Discharge Disposition: [...] Ulcerative colitis Colonoscopy 04/08/10 (Dr. Gomes [facility]) - inflammation only within the rectum and sigmoid; extent of the exam was to the hepatic flexure; biopsies proximal to the sigmoid nl Repeat exam 11/27/11 ([facility] [...] CC: MORE NAYLOR MD [address] [facility] [address] documented in this encounter Plan of Treatment Upcoming Encounters Date Type Department Care Team (Late st Contact Info) Description 08/15/2024 9:00 AM EDT Office [place] [phone] Dion Barlow MD [facility] [address] 09/01/2024 9:40 AM EDT Office Visit Cardiology at [address] [phone] Franky Shaver MD [facility] [place] [address] 09/01/2024 11:20 AM EDT Office Visit Dermatology at [facility] [address] [place] [address] Gómez Mercer MD [facility] DR [place] [address] 09/21/2024 2:45 PM EDT Office Visit [place] [address] Trung Hoyos MD [facility] [place] [address] documented as of this encounter Procedures Procedure [...] [facility] [place]/ZIP Co de Phone Number DURGA FREDERICK * TPMT Enzyme (04/02/2012 1:39 PM EDT) TPMT Enzyme See Note CERNER MILLENNIUM Comment: Normal ??Activity. Please see scanned report in Chart Review under the Non-DH Laboratory Heading. Blood specimen (specimen) 04/02/2012 1:39 PM EDT 04/02/2012 2:50 PM EDT Narrative Resulting Agency Comment Spec In Lab L Karthik Balrow MD CHEMISTRY ORDERABLES DURGA COLBERTIUM * Lipase (04/02/2012 1:39 PM EDT) Lipase 23 0 - 60 unit/L CERNER MILLENNIUM Blood specimen (specimen) 04/02/2012 1:39 PM EDT 04/02/2012 1:48 PM EDT Narrative Resulting Agency Comment Spec In Lab L Karthik Barlow MD CHEMISTRY ORDERABLES Performing Organization Address [facility] de Phone Number [facility] * Amylase (04/02/2012 1:39 PM EDT) Amylase 32 28 - 100 unit/L CERNER MILLENNIUM Blood specimen (specimen) 04/02/2012 1:39 PM EDT 04/02/2012 1:48 PM EDT Narrative Resulting Agency Comment Spec In Lab L Karthik Barlow MD CHEMISTRY ORDERABLES Performing Organization Address [facility] Phone Number [facility] * High Sensitivity CRP (04/02/2012 1:39 PM [...] Barlow MD CHEMISTRY ORDERABLES Performing Organization Address [facility] Number [facility] * Sedimentation rate (04/02/2012 1:39 PM EDT) Sedimentation Rate Automated 12 0 - 15 mm/hr [facility] Blood specimen (specimen) 04/02/2012 1:39 PM EDT 04/02/2012 1:48 PM EDT Narrative Resulting Agency Comment Spec In Lab L Karthik Barlow MD HEMATOLOGY ORDERABLE S Performing Organization Address [facility] Number [facility] * (ABNORMAL) CMP w/fasting Glucose (04/02/2012 1:39 PM EDT) Glucose Fasting 158(H) 65 - 99 mg/dL [facility] Comment: ?Fasting* Glucose Interpretive Criteria Normal [...] of Diabetes Mellitus, Position Statement from the [place] Diabetes Association. ??Diabetes Care, Volume 33, Supplement [...] Lab L Karthik Barlow MD CHEMISTRY ORDERABLES [facility] * (ABNORMAL) CBC (with Diff) (04/02/2012 [...] unspecified documented in this encounter Care Teams Independent Insurance Adjuster Relationship Specialty Start Date End Date More Naylor MD [address] [place] [address] PCP - General 10/01/11 02/13/21 documented as of this encounter
--- OUTSIDE RECORDS SUMMARY | 2024-07-22 13:10 | XMS_ITS | Encounter Summary ---
[place] [address] Care Team Providers Care Consumer Services Advisor Name Role Phone Maximilian Fall MD Primary Care Provider [phone] Encounter Details Date Type Department Care Team (Late st Contact Info) Description 09/30/2012 Telephone [place] [address] Lilliana Reece RN Social History Tobacco Use [...] louis ----- Message ----- From: Lab In [facility] Chong Sent: 09/20/2012 11:34 AM To: [...] EDT Office [place] [address] Dion Barlow MD [facility] [place] [address] 09/01/2024 9:40 AM EDT Office Visit Cardiology at [address] [place] [address] Franky Shaver MD [facility] [place] [address] 09/01/2024 11:20 AM EDT Office Visit Dermatology at [facility] [address] [place] [address] Gómez Mercer MD [facility] [place] [address] 09/21/2024 2:45 PM EDT Office Visit [facility] [place] [address] Trung Hoyos MD [facility] [place] [address] documented as of this encounter Visit Diagnoses Not on filedocumented in this encounter Care Teams Consumer Services Advisor Relationship Specialty Start Date End Date Maximilian Fall MD [address] [place] [address] PCP - General 10/01/11 02/13/21 documented as of this encounter
--- OUTSIDE RECORDS SUMMARY | 2024-07-22 13:10 | XMS_ITS | Encounter Summary ---
Author Organization [facility] Address [facility] [place] [address] Care Team Providers Care Private Client Advisor Name Role Phone Maximilian Fall MD Primary Care Provider [phone] Encounter Details Date Type Department Care Team (Late st Contact Info) Description 03/02/2012 External [place] [address] Dion Barlow MD [facility] [place] [address] Social History Tobacco Use Types Packs/Day Years [...] 9:00 AM EDT Office [place] [address] Dion Barlow MD [facility] [place] [address] 09/01/2024 9:40 AM EDT Office Visit Cardiology at [address] [place] [address] Franky Shaver MD [facility] [place] [address] 09/01/2024 11:20 AM EDT Office Visit Dermatology at [facility] [address] [place] [address] Gómez Mercer MD [facility] DR ED[place] [address] 09/21/2024 2:45 PM EDT Office Visit Pain and Spine Center at [facility] [place] [address] Trung Hoyos MD [facility] [place] [address] documented as of this encounter Procedures Procedure Name Priority Date/Time Associated Diagnosis Comments EXTERNAL LAB RESULTS Routine 03/04/2012 documented in this encounter Results * External Lab Results (03/04/2012) Blood specimen (specimen) L Karthik Barlow MD CHEMISTRY ORDERABLES documented in this encounter Visit Diagnoses Not on filedocumented in this encounter Care Teams Private Client Advisor Relationship Specialty Start Date End Date Maximilian Fall MD [facility] [address] [facility] 1 [place] [address] PCP - General 10/01/11 02/13/21 documented as of this encounter
--- OUTSIDE RECORDS SUMMARY | 2024-07-22 13:10 | XMS_ITS | Encounter Summary ---
Author Organization [facility] Address [facility] [place] [address] Care Team Providers Care Assistant Editor Name Role Phone More Naylor MD Primary Care Provider [phone] Reason for Visit * Reason Comments Follow-up Encounter Details Date Type Department Care Team (Late st Contact Info) Description 11/05/2011 2:00 PM EST [place] [address] Dion Barlow MD [facility] [place] [address] Ulcerative colitis (Primary Dx) Discharge Disposition: Home [...] the preparation at this time. Please call [phone] to let us know that you cannot [...] time. ?? Please plan to be at [facility] for about 3 hours; please see your letter for estimated procedure and discharge times. If you have read the information thoroughly, and still have questions about what you have read, please call [phone] between the hours of 7:00am - 7:00pm, Thursday - Thursday and a nurse will assist you. If you have an urgent matter after hours, please call [phone], and ask to speak to the Gastroenterology Fellow ultrasonic welding machine operator. If you need to reschedule your colonoscopy, please call [phone]. We do have a high volume of [...] information packet from Gastroenterology and Hepatology and [facility]: ?? Please read ALL information in your information packet. ?? If you have read the information thoroughly, and still have questions about what you have read, please call [phone] between the hours of 7:00am - 7:00pm Thursday - Thursday, and a nurse will assist you. ?? If you have an urgent matter after hours, please call [phone], and ask to speak to the Gastroenterology Fellow ultrasonic welding machine operator. ?? If you need to reschedule your colonoscopy, please call [phone]. We do have a high volume of patients for this exam, so please give a least 72 hours notice for routine rescheduling. MEDICATION INFORMATION ?? Please call your prescribing physician to see if it is safe for you to lessen the dose or stop your medication prior to this procedure. Please note: If you cannot safely stop these medications, please call [phone]. The prescribing physician can give you instructions [...] you arrive (2 hours before your procedure) [facility] () ?? You will need to arrive ONE HOUR before your procedure time, to help you prepare for your procedure; please see your letter for exact arrival time. ?? Please plan to be at [facility] for about 3 hours; please see [...] forms of transportation like cabs or buses. [email or web address] 1 FREQUENTLY ASKED QUESTIONS ABOUT YOUR COLONOSCOPY [...] one do I follow? A: Please follow [facility] Gastroenterology instructions, NOT the instructions from the [...] you continue to have problems, please call [phone] during office hours at 7am - 5pm.After hours please call [phone], and ask for the Gastroenterology Fellow ultrasonic welding machine operator. Q: Do I REALLY [...] have a deep chest cough, please call [phone] to see if you need to reschedule your appointment. Q: I am having my menstrual period. Should I reschedule my colonoscopy appointment? A: No. Your menstrual period will not interfere with your physician's ability to complete your procedure. [facility] FAQ 07/12/2009 Brian Rodriguez [address] [facility] [address] Thank you for choosing [facility] for your medical needs. You are scheduledfor a colonoscopy on at the Endoscopy Center at Cloth Mercerizer Operator 4T (Level 4). Below you will find [...] about what you have read, please call [phone] between the hours of 7:00am - 7:00pm Thursday - Thursday, and ask to speak to the Gastroenterology Fellow ultrasonic welding machine operator. If you need to reschedule your procedure please call: [phone]. Thank you for choosing [facility]. Sincerely, The Gastroenterology and Hepatology Team and the Endoscopy Center at [facility] documented in this encounter Progress Notes * Dion Barlow MD - 11/05/2011 2:31 PM EST Patient Active Problem List Diagnoses ??? Ulcerative colitis [556.9J] Colonoscopy 04/08/10 (Dr. Gomes [facility]) - inflammation only within the [...] 4. Arrange for colonoscopy. Davina Barlow MD Labeling Specialistfuneral home attendant Section of [place] [address] CC: MORE NAYLOR MD [address] [place] [address] documented in this encounter Plan of Treatment Upcoming Encounters Date Type Department Care Team (Late st Contact Info) Description 08/15/2024 9:00 AM EDT Office [place] [address] Dion Barlow MD [facility] [place] [address] 09/01/2024 9:40 AM EDT Office Visit Cardiology at [address] [address] Franky Shaver MD [facility] [place] [address] 09/01/2024 11:20 AM EDT Office Visit Dermatology at [facility] [address] [place] [address] Gómez Mercer MD [facility] DR EDD[place] [address] 09/21/2024 2:45 PM EDT Office Visit Pain and Spine Center at [facility] [place] [address] Trung Hoyos MD [facility] [place] [address] documented as of this encounter Procedures Procedure [...] MD HEMATOLOGY ORDERABLE S Performing Organization Address [facility] Co de Phone Number [facility] * TPMT Enzyme (11/05/2011 3:15 PM EST) Pathologist [facility] TPMT Enzyme See Note [facility] Comment: Normal Activity Please see scanned report in Chart Review under the Non-DH Laboratory Heading. Test performed by Georgina Goodman, [address] [place] [address] Blood specimen (specimen) 11/05/2011 3:15 PM EST 11/05/2011 3:45 PM EST Dion Barlow MD CHEMISTRY ORDERABLES Performing Organization Address [facility] Co de Phone Number [facility] * High Sensitivity CRP (11/05/2011 3:15 PM EST) C-Reactive Protein High Sensitivity 2.3 mg/L [facility] Comment: Interpretations: 1) For cardiac risk [...] MD CHEMISTRY ORDERABLES Performing Organization Address [facility] de Phone Number [employer] * Sedimentation rate (11/05/2011 3:15 PM EST) [facility] Signature Sedimentation Rate Automated 13 0 - 15 mm/hr DUR[facility] FREDERICK Blood specimen (specimen) 11/05/2011 3:15 PM EST 11/05/2011 3:22 PM EST L Karthik Barlow MD HEMATOLOGY ORDERABLE S Performing Organization Address [facility] de Phone Number CERGIOVANNI MILLENNIUM * CMP w/fasting Glucose (11/05/2011 3:15 PM EST) [facility] Glucose Fasting 97 65 - 99 [...] of Diabetes Mellitus, Position Statement from the [place] [employer]. ??Diabetes Care, Volume 33, Supplement [...] MD HEMATOLOGY ORDERABLE S Performing Organization Address City/State/[facility] Co de Phone Number DURGA FREDERICK documented in this encounter Visit Diagnoses Diagnosis Ulcerative colitis- Primary Ulcerative colitis, unspecified documented in this encounter Care Teams Assistant Editor Relationship Specialty Start Date End Date More Naylor MD [address] [place] [address] PCP - General 10/01/11 02/13/21 documented as of this encounter
--- OUTSIDE RECORDS SUMMARY | 2024-07-22 13:10 | XMS_ITS | Encounter Summary ---
Author Organization [facility] Address [facility] [place] [address] Care Team Providers Care Grinder Operator Surface Tool Name Role Phone Maximilian Fall MD Primary Care Provider [phone] Encounter Details Date Type Department Care Team (Late st Contact Info) Description 11/27/2011 1:00 PM EST - 11/27/2011 1:45 PM EST Surgery [place] [address] Dion Osullivan MD [facility] [place] [address] COLONOSCOPY, DIAGNOSTIC (WRVU 3.26) Social History Tobacco [...] - 11/27/2011 2:37 PM EST Please call [phone], before 5pm with problems, questions or concerns, after 5pm call the Hospital at [phone] and ask to speak to the Burn Crew Member environmental manager and the coal trimmer machine operator will contactthat person for you. Discharge instructions reviewed with patient who expresses understanding. * Patient Instructions* Dion Osullivan MD - 11/27/2011 1:07 PM EST Please see Recommendations in the Provation procedure report which is documented in the procedural note in E-DH. * Attachments The following attachments cannot be sent through Care Everywhere. * COLONOSCOPY: WHAT TO EXPECT AT HOME (IRISH) documented in this encounter Medications at Time [...] MD - 11/27/2011 1:06 PM EST [facility] Operative Note Patient Name: Naya Rodriguez : [id number] MR#: [id number] Case Date: 11/27/2011 Surgeon: Surgeon(s) and Role: * Dion OSULLIVAN MD - Primary Please see the Provation procedure report in the Procedures tab in eDH. documented in this encounter Plan of Treatment Upcoming Encounters Date Type Department Care Team (Late st Contact Info) Description 08/15/2024 9:00 AM EDT Office [place] [address] Dion Osullivan MD [facility] [place] [address] 09/01/2024 9:40 AM EDT Office Visit Cardiology at [address] [address] Franky Shaver MD [facility] [place] [address] 09/01/2024 11:20 AM EDT Office Visit Dermatology at [address] [address] Gómez Mercer MD [facility] DR [place] [address] 09/21/2024 2:45 PM EDT Office Visit [place] [address] Trung Hoyos MD [facility] [place] [address] documented as of this encounter Procedures Procedure [...] 4:38 PM EST) Surgical Pathology Report ? [facility] ? Provider: ?? Dion OSULLIVAN ?Pt. Name: ?? NAYA RODRIGUEZ ? Acc #: ?[id number] ?Pt. ? Col Date: ?? 11/27/2011 ?/Sex: [...] Stephen, rubbery mucosal polyp, the larger ? [facility] ? Provider: ?? Dion OSULLIVAN ?Pt. Name: ?? NAYA RODRIGUEZ ? Acc #: ?[id number] ?Pt. ? Col Date: ?? 11/27/2011 ?/Sex: [...] PATHOLOGY/CYTOLOGY O CEE Performing Organization Address [facility] Co de Phone Number [facility] * Specimen to Pathology (surgical or derm) (11/27/2011 1:53 PM EST) AP Specimen 11/27/2011 1:53 PM EST 11/27/2011 1:53 PM EST Narrative [facility] - 11/27/2011 1:53 PM EST Specimen requisition ordered. ??Separate Pathology report to follow L Karthik Osullivan MD PATHOLOGY/CYTOLOGY O CEE Performing Organization Address City/[facility] Co de Phone Number [facility] * Specimen to Pathology (surgical or derm) (11/27/2011 1:53 PM EST) AP Specimen 11/27/2011 1:53 PM EST 11/27/2011 1:53 PM EST Narrative [facility] - 11/27/2011 1:53 PM EST Specimen requisition ordered. ??Separate Pathology report to follow L Karthik Osullivan MD PATHOLOGY/CYTOLOGY O CEE Performing Organization Address [facility] Co de Phone Number [facility] * COLONOSCOPY (11/27/2011 1:01 PM EST) COLONOSCOPY [facility] Endoscopy Patient Name: Naya Rodriguez ? Procedure Date: 11/27/2011 01:01:31 PM ? Date of : 1950 ? Age: 61 ? Procedure: ? Colonoscopy Indications: ? Follow-up of left-sided chronic ? ulcerative colitis Providers: ? L Karthik Osullivan MD, Tyron Cee, ? RN, Qing López, Liner Worker Referring MD: ?Maximilian Fall MD Medicines: ? [...] time) documented in this encounter Care Teams Grinder Operator Surface Tool Relationship Specialty Start Date End Date Maximilian Fall MD [address] [place] [address] PCP - General 10/01/11 02/13/21 documented as of this encounter
--- OUTSIDE RECORDS SUMMARY | 2024-07-22 13:10 | XMS_ITS | Encounter Summary ---
Author Organization [facility] Address [facility] [place] [address] Care Team Providers Care Trolley Wire Installer Name Role Phone Maximilian Fall MD Primary Care Provider [phone] Encounter Details Date Type Department Care Team (Latest Contact Info) Description 03/02/2012 9:31 AM EDT - 03/02/2012 11:59 PM EDT Hospital Encounter XRay at [address] [place] [address] CLINIC, Dion Edmonds MD [facility] [place] [address] Exam for clinical research Discharge Disposition: Home [...] AM EDT Office Visit [place] [address] Dion Barlow MD [facility] [place] [address] 09/01/2024 9:40 AM EDT Office Visit Cardiology at [address] [address] Franky Shaver MD [facility] [place] [address] 09/01/2024 11:20 AM EDT Office Visit Dermatology at [facility] [address] [place] [address] Gómez Mercer MD [facility] DR EDD[place] [address] 09/21/2024 2:45 PM EDT Office Visit [facility] [place] [address] Trung Hoyos MD [facility] [place] [address] documented as of this encounter Procedures Procedure [...] trial documented in this encounter Care Teams Trolley Wire Installer Relationship Specialty Start Date End Date Maximilian Fall MD [address] [place] [address] PCP - General 10/01/11 02/13/21 documented as of this encounter
--- OUTSIDE RECORDS SUMMARY | 2024-07-22 13:10 | XMS_ITS | Encounter Summary ---
Author Organization [facility] Address [facility] [place] [address] Care Team Providers Care Cable Mock Up Assembler Name Role Phone More Naylor MD Primary Care Provider [phone] Reason for Visit * Reason Comments Ulcerative Colitis Encounter Details Date Type Department Care Team (Late st Contact Info) Description 04/21/2012 1:30 PM EDT [place] [address] Dion Barlow MD [facility] [place] [address] Ulcerative colitis (Primary Dx) Discharge Disposition: Home [...] has left-sided ulcerative colitis with persistently active [id number] symptoms andmildly active disease endoscopically. He failed [...] MORE NAYLOR MD [address] [facility] [address] documented in this encounter Plan of Treatment Upcoming Encounters Date Type Department Care Team (Late st Contact Info) Description 08/15/2024 9:00 AM EDT Office [place] [address] Dion Barlow MD [facility] [place] [address] 09/01/2024 9:40 AM EDT Office Visit Cardiology at [address] [place] [address] Franky Shaver MD [facility] [place] [address] 09/01/2024 11:20 AM EDT Office Visit Dermatology at [facility] [address] [place] [address] Gómez Mercer MD [facility] [place] [address] 09/21/2024 2:45 PM EDT Office Visit [place] [address] Trung Hoyos MD [facility] [address] documented as of this encounter Visit Diagnoses Diagnosis Ulcerative colitis- Primary Ulcerative colitis, unspecified documented in this encounter Care Teams Cable Mock Up Assembler Relationship Specialty Start Date End Date More Naylor MD [address] [facility] 1 [place] [address] PCP - General 10/01/11 02/13/21 documented as of this encounter
--- OUTSIDE RECORDS SUMMARY | 2024-07-22 13:10 | XMS_ITS | Encounter Summary ---
Author Organization [facility] Address [facility] [place] [address] Care Team Providers Care Ophthalmologist Retina Specialist Name Role Phone Maximilian Fall MD Primary Care Provider [phone] Encounter Details Date Type Department Care Team (Late st Contact Info) Description 03/02/2012 External Results [place] [address] Dion Barlow MD [facility] [place] [address] Social History Tobacco Use Types Packs/Day Years [...] EDT Office [place] [address] Dion Barlow MD [facility] [place] [address] 09/01/2024 9:40 AM EDT Office Visit Cardiology at [address] [place] [address] Franky Shaver MD [facility] [place] [address] 09/01/2024 11:20 AM EDT Office Visit Dermatology at [facility] [address] [place] [address] Gómez Mercer MD [facility] [address] EDDIE [place] [address] 09/21/2024 2:45 PM EDT Office Visit Pain and Spine Center at [facility] [place] [address] Trung Hoyos MD [facility] [place] [address] documented as of this encounter Procedures Procedure Name Priority Date/Time Associated Diagnosis Comments EXTERNAL LAB RESULTS Routine 03/02/2012 documented in this encounter Results * External Lab Results (03/02/2012) Stool specimen (specimen) 03/02/2012 L Karthik Barlow MD CHEMISTRY ORDERABLES documented in this encounter Visit Diagnoses Not on filedocumented in this encounter Care Teams Ophthalmologist Retina Specialist Relationship Specialty Start Date End Date Maximilian Fall MD [facility] [address] [facility] [place] [address] PCP - General 10/01/11 02/13/21 documented as of this encounter
--- OUTSIDE RECORDS SUMMARY | 2024-07-22 13:10 | XMS_ITS | Encounter Summary ---
Author Organization [facility] Address [facility] [place] [address] Care Team Providers Care Manager Of Financial Reporting Name Role Phone Maximilian Fall MD Primary Care Provider [phone] Reason for Visit * Reason Comments Research Merit UC screening v isit Encounter Details Date Type Department Care Team (Late st Contact Info) Description 03/02/2012 7:30 AM EDT Office [place] [address] Mica Gore, [facility] [place] [address] Ulcerative colitis (Primary Dx) Social History Tobacco [...] Treatment of UC- Merit UC) Investigators:.Dr. Dion Barlwo Informed consent for the above entitled study [...] EDT Office [place] [address] Dion Barlow MD [facility] [place] [address] 09/01/2024 9:40 AM EDT Office Visit Cardiology at [address] [place] [address] Franky Shaver MD [facility] [place] [address] 09/01/2024 11:20 AM EDT Office Visit Dermatology at [facility] [address] [place] [address] Gómez Mercer MD [facility] DR EDDIE [place] [address] 09/21/2024 2:45 PM EDT Office Visit [place] [address] Trung Hoyos MD [facility] [place] [address] documented as of this encounter Visit Diagnoses Diagnosis Ulcerative colitis- Primary Ulcerative colitis, unspecified documented in this encounter Care Teams Manager Of Financial Reporting Relationship Specialty Start Date End Date Maximilian Fall MD [address] [place] [address] PCP - General 10/01/11 02/13/21 documented as of this encounter
--- OUTSIDE RECORDS SUMMARY | 2024-07-22 13:10 | XMS_ITS | Encounter Summary ---
Author Organization [facility] Address [facility] [place] [address] Care Team Providers Care Supply Chain Design Manager Name Role Phone Maximilian Fall MD Primary Care Provider [phone] Encounter Details Date Type Department Care Team (Late st Contact Info) Description 03/02/2012 External Results [place] [address] Dion Barlow MD [facility] [place] [address] Social History Tobacco Use Types Packs/Day Years [...] 9:00 AM EDT Office Visit [place] [phone] Dion Barlow MD [facility] [place] [address] 09/01/2024 9:40 AM EDT Office Visit Cardiology at [address] [place] [phone] Franky Shaver MD [facility] [place] [address] 09/01/2024 11:20 AM EDT Office Visit Dermatology at [facility] [address] [place] [phone] Gómez Mercer MD [facility] DR [place] [address] 09/21/2024 2:45 PM EDT Office Visit [facility] Sp[facility] at [facility] [place] [phone] Trung Hoyos MD [facility] [place] [address] documented as of this encounter Procedures Procedure Name Priority Date/Time Associated Diagnosis Comments EXTERNAL LAB RESULTS Routine 03/02/2012 documented in this encounter Results * External Lab Results (03/02/2012) Blood specimen (specimen) 03/02/2012 L Karthik Barlow MD CHEMISTRY ORDERABLES documented in this encounter Visit Diagnoses Not on filedocumented in this encounter Care Teams Supply Chain Design Manager Relationship Specialty Start Date End Date Maximilian Fall MD [facility] [address] [facility] [address] [place] [address] PCP - General 10/01/11 02/13/21 documented as of this encounter
== END 2024-07-23 23:59 | disposition home or self-care (01) ==
LOC: CR 13:02
PROVIDERS: PCP Nurse Practitioner Family; Visit Provider Internal Medicine Cardiovascular Disease
DX: I21.4 Non-ST elevation (NSTEMI) myocardial infarction (principal); Z95.5 Presence of coronary angioplasty implant and graft; Z51.89 Encounter for other specified aftercare
CPT/HCPCS: S9472

== ENCOUNTER 2024-07-27 13:25 | Inpatient (IN) | payer MEDICARE, SELFPAY ==
[2024-07-27] VITALS (110 sets, daily range): BP systolic 101–154; BP diastolic 47–143; PULSE 58–168; RESP 9–31; TEMP 36.4–36.8; O2SAT 90–100
--- NOTE | 2024-07-27 13:30 | RT.EKG_ITS ---
APPROVED REPORT Exam: Resting ECG Reason for Exam: SOB Patient Location: E HR:104 bpm ECG Measurements Heart Rate 104 AXIS IN 136 P 0 QRSd 143 QRS 100 QT 376 T -30 QTc 494 Conclusion Sinus tachycardia...rate> 99 RBBB and LPFB...QRSd >120mS, axis(90,210) sinus tach, RBBB, frequent PVCs
--- OUTSIDE RECORDS SUMMARY | 2024-07-27 13:35 | XMS_ITS | Encounter Summary ---
Author Organization [facility] Address [address] [place] [address] Care Team Providers Care Director Financial Analysis Name Role Phone Maximilian Fall MD Primary Care Provider [phone] Encounter Details Date Type Department Care Team (Late st Contact Info) Description 03/10/2023 Lab Requisition [facility] Pathology & Laboratory Medicine - [address] [address] Rodrick Florentino MD [address] [place] [phone] Other microscopic hematuria Social History Tobacco [...] Name Priority Date/Time Associated Diagnosis Comments NON SITE LEASING AGENT/FNA CYTOLOGY Today 03/09/2023 10:55 EDT Other microscopic hematuria documented in this encounter Results * NON SITE LEASING AGENT/FNA CYTOLOGY (03/09/2023 10:55 EDT) Note to Patient The following pathology results have been interpreted by your pathologist and may be available to you before your health provider has had the opportunity to review them. Please allow time for your provider to receive these results and explore management options, if applicable. 03/12/2023 7:50 [facility] Final Diagnosis URINE, CATHETERIZED, CYTOLOGIC EVALUATION: - Negative for high grade urothelial carcinoma. - Reactive urothelial cells, abundant acute inflammatory cells and lymphocytes present. 03/12/2023 7:50 [facility] Attestation By the signature below, the attending physician certifies that they have personally conducted a gross and/or microscopic examination of the described specimens and rendered or confirmed the above diagnosis. 03/12/2023 7:50 [facility] at 0750 Clinical History Hematuria; R31.29 03/12/2023 7:50 [facility] Gross Description A. 160cc's of clear pale pink fluid (Cytolyt added) were received and processed by selective cellular enhancement technique. 03/12/2023 7:50 [facility] Performing Lab [facility] 03/12/2023 7:50 [facility] Scanned Images 03/12/2023 7:50 [facility] Urine URINE SPECIMEN COLLECTION, CATHETERIZED / Unknown 03/09/2023 10:55 EDT 03/10/2023 6:16 EDT Rodrick Florentino MD PATHOLOGY ORDERAB LES Performing Organization Address City/State/[facility] Co de Phone Number [facility] [address] [place] [address] documented in this encounter Visit Diagnoses Diagnosis Other microscopic hematuria documented in this encounter Care Teams Director Financial Analysis Relationship Specialty Start Date End Date Maximilian Fall MD PCP - General 03/18/16 documented as of this encounter
--- OUTSIDE RECORDS SUMMARY | 2024-07-27 13:35 | XMS_ITS | Encounter Summary ---
Author Organization [facility] Address [address] [place] [address] Care Team Providers Care Process Inspector Name Role Phone Unavailable Primary Care Provider Unavailabl e Encounter Details Date Type Department Care Team (Late st Contact Info) Description 10/09/2008 Before PRISM Converted Visit (Maple) [facility] - Maple conversion [address] [place] [address] Yeni Agustin MD [address] [place] [address] Social History Tobacco Use Types Packs/Day Years [...] ? RODRIGUEZ, BRIAN ? Accession #: ? [id number] ? : ? 1950 (Age: 58) ??M [...] PATHOLOGY ORDERABLE S [facility] [address] [place] [address] documented in this encounter Visit Diagnoses Not on filedocumented in this encounter
--- OUTSIDE RECORDS SUMMARY | 2024-07-27 13:35 | XMS_ITS | Encounter Summary ---
Author Organization [facility] Address [address] [place] [address] Care Team Providers Care Ceo And President Name Role Phone More Naylor MD Primary Care Provider [phone] Encounter Details Date Type Department Care Team (Late st Contact Info) Description 10/30/2016 Results Only [facility] [place] [facility] [phone] Tamara Reza, [address] [place], [place] [phone] Social History Tobacco Use Types Packs/Day Years [...] ? NAYA RODRIGUEZ ? Accession #: ? [id number] ? : ? 1950 (Age: 66) ??M [...] tumor. This sample was processed at the [facility]. ??The slides were reviewed and the final diagnosis was made at [facility], [address] [place] [address]. ([place] License Number [id number]) Document reviewed and electronically signed by: AMIE [...] prior to verbal report. ??Procedure performed at [facility]. ??Staining of frozen section is adequate. ??Dr. [...] prior to verbal report. ??Procedure performed at [facility]. Staining of frozen section is adequate. ??Dr. Sahn Concepcion 10/30/2016 Gross Description: A. ? Received [...] 3:11 PM End of Report [facility] 10/30/2016 11:3 0 EST 11/01/2016 11:30 EST Tamara Reza DO PATHOLOGY ORDER ASHLIE [facility] [address] [place] [address] documented in this encounter Visit Diagnoses Not on filedocumented in this encounter Care Teams Ceo And President Relationship Specialty Start Date End Date More Naylor MD PCP - General 03/18/16 documented as of this encounter
--- OUTSIDE RECORDS SUMMARY | 2024-07-27 13:35 | XMS_ITS | Encounter Summary ---
Author Organization [facility] Address [address] [place] [address] Care Team Providers Care Telephonic Nurse Case Manager Name Role Phone Maximilian Fall MD Primary Care Provider [phone] Reason for Referral * (Routine/Next Available) - Receiving Office to Obtain Authorization Specialty Diagnoses / Procedures Referred By Contac t Referred To Contact Procedures XR OUTSIDE IMAGES CHEST Unknown, ProviderMD Referral ID Status Reason Start Date Expiration Date Visits Requested Visits Authorized [id number] Receiving Office to Obtain Authorization 06/29/2024 1 1 Reason for Visit * (Routine/Next Available) - Receiving Office to Obtain Authorization Specialty Diagnoses / Procedures Referred By Contac t Referred To Contact Procedures XR OUTSIDE IMAGES CHEST Unknown, MD Elba Referral ID Status Reason Start Date Expiration Date Visits Requested Visits Authorized [id number] Receiving Office to Obtain Authorization 06/29/2024 1 1 Encounter Details Date Type Department Care Team (Latest Contact Info) Description 06/29/2024 18:51 EDT - 06/29/2024 23:59 EDT Hospital Encounter [facility] Center Secondary Reads [place] Discharge [...] on filedocumented in this encounter Care Teams Telephonic Nurse Case Manager Relationship Specialty Start Date End Date Maximilian Fall MD PCP - General 03/18/16 documented as of this encounter
--- OUTSIDE RECORDS SUMMARY | 2024-07-27 13:35 | XMS_ITS | Encounter Summary ---
Author Organization [facility] Address [address] [place] [address] Care Team Providers Care Precision Agronomist Name Role Phone Maximilian Fall MD Primary Care Provider [phone] Encounter Details Date Type Department Care Team [...] filedocumented in this encounter Care Teams Precision Agronomist Relationship Specialty Start Date End Date Maximilian Fall MD PCP - General 03/18/16 documented as of this encounter
--- OUTSIDE RECORDS SUMMARY | 2024-07-27 13:35 | XMS_ITS | Encounter Summary ---
Author Organization [facility] Address [address] [place] [address] Care Team Providers Care Press Room Supervisor Name Role Phone Sharad Mcleod MD Primary Care Provider Unavail able Encounter Details Date Type Department Care Team (Late st Contact Info) Description 04/08/2010 Results Only [facility] Laboratory Services - [facility] ([facility]) [address] [place], [place] [id number] Marcelo Agustin, DO [address] [facility] [address] [place], [place] [address] Social History Tobacco Use Types Packs/Day Years [...] ? RODRIGUEZ, BRIAN ? Accession #: ? [id number] ? : ? 1950 (Age: 59) ??M [...] cm, submitted in toto as (D). (Davina Ordoñez)/[facility] ? End of Report ? [facility] 04/08/2010 04/09/2010 16: 29 EDT Marcelo Agustin DO PATHOLOGY ORDER ASHLIE Performing Organization Address City/State/[facility] Co de Phone Number [facility] [address] [place] [address] documented in this encounter Visit Diagnoses Not on filedocumented in this encounter Care Teams Press Room Supervisor Relationship Specialty Start Date End Date Sharad Mcleod MD PCP - General 12/07/09 03/17/16 documented as of this encounter
--- OUTSIDE RECORDS SUMMARY | 2024-07-27 13:35 | XMS_ITS | Encounter Summary ---
Author Organization [facility] Address [address] [place] [address] Care Team Providers Care Claims Configuration Analyst Name Role Phone Sharad Mcleod MD Primary Care Provider Unavail able Encounter Details Date Type Department Care Team (Late st Contact Info) Description 10/22/2004 Results Only [facility] - Maple conversion [address] [place] [address] Maximilian Quiroga MD [address] [place] [phone] Social History Tobacco Use Types Packs/Day Years [...] ? NAYA RODRIGUEZ ? Accession #: ? [id number] ? : ? 1950 (Age: 54) ??M [...] seen in this biopsy. ??(Dr. Hair)/[facility] ?? Document reviewed and electronically [...] submitted intact in one cassette. ?? (Dr. Terrazas-MS)/[facility] ?? End of Report [facility] 10/22/2004 10/22/2004 14: 58 EST Maximilian Quiroga MD PATHOLOGY ORDERABLES [facility] [address] [place] [address] documented in this encounter Visit Diagnoses Not on filedocumented in this encounter Care Teams Claims Configuration Analyst Relationship Specialty Start Date End Date Sharad Mcleod MD PCP - General 12/07/09 03/17/16 documented as of this encounter
--- OUTSIDE RECORDS SUMMARY | 2024-07-27 13:35 | XMS_ITS | Encounter Summary ---
Author Organization [facility] Address [address] [place] [address] Care Team Providers Care Outdoor Illuminating Engineer Name Role Phone Maximilian Fall MD Primary Care Provider [phone] Encounter Details Date Type Department Care Team (Late st Contact Info) Description 06/28/2021 Lab Requisition [facility] Pathology & Laboratory Medicine - [address] [address] Bettina Shipman, DO [address] [facility] [address] [place] [address] Encounter for other general examination Social History [...] explore management options, if applicable. 07/02/2021 9:15 [facility] Final Diagnosis A. PROXIMAL [...] with no significant diagnostic abnormalities. 07/02/2021 9:15 [facility] Attestation There was significant resident/fellow involvement in the diagnostic evaluation of this case. By the signature below, the attending physician certifies that they have personally conducted a gross and/or microscopic examination of the described specimens and rendered or confirmed the above diagnosis. 07/02/2021 9:15 [facility] at 0915 Clinical History Dysphagia 07/02/2021 9:15 [facility] Gross Description A. Received [...] Destin Barros 06/29/2021 11:30 07/02/2021 9:15 EDT [facility] Resident/Bridger w: Gutierrez Castro DO 07/02/2021 9:15 EDT [facility] Performing Lab [facility] 9:15 EDT [facility] Scanned Images 07/02/2021 9:15 EDT [facility] Tissue ENTIRE ESOPHAGUS / [...] 22:58 EDT Bettina Shipman DO PATHOLOGY ORDERABLES [facility] [address] [place] [address] documented in this encounter Visit Diagnoses Diagnosis Encounter for other general examination documented in this encounter Care Teams Outdoor Illuminating Engineer Relationship Specialty Start Date End Date Maximilian Fall MD PCP - General 03/18/16 documented as of this encounter
--- OUTSIDE RECORDS SUMMARY | 2024-07-27 13:35 | XMS_ITS | Encounter Summary ---
Author Organization [facility] Address [address] [place] [address] Care Team Providers Care Ply Cutter Name Role Phone Maximilian Fall MD Primary Care Provider [phone] Encounter Details Date Type Department Care Team (Late st Contact Info) Description 02/17/2023 Lab Requisition [facility] Pathology & Laboratory Medicine - [address] [id number] Outr Resulting Lab, Provider Social History Tobacco [...] Salmonella PCR Negative Negative 02/18/2023 11:17 EDT [facility] Shigella/Enteroin vasive E. coli Negative Negative 02/18/2023 11:17 EDT [facility] HN LAB CAMPYLOBACTER PCR Negative Negative 02/18/2023 11:17 EDT [facility] Shiga Toxin PCR Negative Negative 03/29/202 3 11:17 EDT [facility] Feces SPECIMEN FROM RECTUM / Unknown 02/17/2023 7:00 EDT 02/17/2023 22:14 EDT Provider Outr Resulting Lab MICROBIOLOGY - GENERAL ORDERABLES Performing Organization Address City/State/[facility] Co de Phone Number [facility] [address] [place] [address] documented in this encounter Visit Diagnoses Not on filedocumented in this encounter Care Teams Ply Cutter Relationship Specialty Start Date End Date Maximilian Fall MD PCP - General 03/18/16 documented as of this encounter
--- OUTSIDE RECORDS SUMMARY | 2024-07-27 13:35 | XMS_ITS | Encounter Summary ---
Author Organization [facility] Address [facility] [place] [address] Care Team Providers Care Enrober Tender Name Role Phone Duong Deacon Wells APRN Primary Care Provider [phone] Reason for Visit * Reason Comments Medication Refill Encounter Details Date Type Department Care Team (Late st Contact Info) Description 07/23/2024 Refill Dermatology at [facility] [address] [place] [address] Gómez Mercer MD [facility] [place] [address] Emanuel rodriguez Social History Tobacco Use Types Packs/Day Years Used Date Smoking Tobacco: Former Cigarettes 4 30 1 12/01/1961 - 10/01/1992 Smokeless Tobacco: Former Chew Comments:Denies vaping Alcohol Use Standard Drinks/Week Comments Yes 0 (1 standard drink = 0.6 oz pur e alcohol) twice a year [facility] Utilities Answer Date Recorded In the past 12 months has e electric, gas, oil, or water company [...] in the past 12 m [facility], were you homeless or living in a assisted (including now)? No 07/01/2024 IPV Inpatient Questions [...] encounter Miscellaneous Notes * Telephone Encounter - Alesia Wheat LNA - 07/26/2024 10:49 AM EDT Medication Refill Request Order(s) pended and routed to Dr. Mercer to review and sign, if appropriate. - Medication(s) requested to refill: Ketoconazole - Associated diagnosis: tinea cruris - Last visit: 06/07/2024 - Recommended follow up: 6-8 weeks - Next scheduled: 09/01/2024 - Special considerations: n/a - Appropriate to refill: pending review and approval documented in this encounter Plan of Treatment Upcoming Encounters Date Type Department Care Team (Late st Contact Info) Description 08/15/2024 9:00 AM EDT Office [place] [address] Dion Barlow MD [facility] [place] [address] 09/01/2024 9:40 AM EDT Office Visit Cardiology at [address] [place] [phone] Franky Shaver MD [facility] [place] [address] 09/01/2024 11:20 AM EDT Office Visit Dermatology at [facility] [address] [place] [phone] Gómez Mercer MD [facility] [place] [address] 09/21/2024 2:45 PM EDT Office Visit [facility] [place] [address] Trung Hoyos MD [facility] [place] [address] documented as of this encounter Visit Diagnoses Diagnosis Tinea cruris Dermatophytosis of groin and perianal area documented in this encounter Care Teams Enrober Tender Relationship Specialty Start Date End Date Deacon Watters APRN [address] [facility] 1 [place] [address] PCP - General Family Medicine 02/17/22 documented as of this encounter
--- OUTSIDE RECORDS SUMMARY | 2024-07-27 13:35 | XMS_ITS | Encounter Summary ---
Author Organization [facility] Address [address] [place] [address] Care Team Providers Care Assurance Manager Name Role Phone Sharad Leon MD Primary Care Provider Unavail able Encounter Details Date Type Department Care Team (Latest Contact Info) Description 03/14/2016 7:58 EDT - 03/14/2016 23:59 EDT Hospital Encounter [address] [address] Unknown, Provider, Discharge Disposition: Home or Self [...] on filedocumented in this encounter Care Teams Assurance Manager Relationship Specialty Start Date End Date Sharad Leon MD PCP - General 12/07/09 03/17/16 documented as of this encounter
--- OUTSIDE RECORDS SUMMARY | 2024-07-27 13:35 | XMS_ITS | Referral Summary ---
Author Organization [facility] Address [address] [place] [address] Care Team Providers Care Umbrella Finisher Name Role Phone Maximilian Fall MD Primary Care Provider [phone] Encounters Date Type Department Care Team Description 06/29/2024 Travel 06/29/2024 18:51 EDT - 06/29/2024 23:59 EDT Hospital Encounter [facility] Secondary Reads [place] Discharge Disposition: [...] DERABLES from Last 3 Months Care Teams Umbrella Finisher Relationship Specialty Start Date End Date Maximilian Fall MD PCP - General 03/18/16
--- OUTSIDE RECORDS SUMMARY | 2024-07-27 13:35 | XMS_ITS | Encounter Summary ---
Author Organization [facility] Address [address] [place] [address] Care Team Providers Care Hand Tile Maker Name Role Phone Maximilian Fall MD Primary Care Provider [phone] Encounter Details Date Type Department Care Team (Late st Contact Info) Description 11/10/2022 Lab Requisition [facility] Pathology & Laboratory Medicine - [address] [id number] Outr Resulting Lab, Provider Social History Tobacco [...] PCR Negative Negative 11/11/2022 0:14 EST [facility] Shigella/Enteroin vasive E. coli Negative Negative 11/11/2022 0:14 EST [facility] HN LAB CAMPYLOBACTER PCR Negative Negative 11/11/2022 0:14 EST [facility] Shiga Toxin PCR Negative Negative 2 0:14 EST [facility] Feces SPECIMEN FROM RECTUM / Unknown 11/09/2022 10:00 EST 11/10/2022 17:36 EST Provider Outr Resulting Lab MICROBIOLOGY - GENERAL ORDERABLES Performing Organization Address City/State/[facility] Co de Phone Number [facility] [address] [place] [address] documented in this encounter Visit Diagnoses Not on filedocumented in this encounter Care Teams Hand Tile Maker Relationship Specialty Start Date End Date Maximilian Fall MD PCP - General 03/18/16 documented as of this encounter
--- OUTSIDE RECORDS SUMMARY | 2024-07-27 13:35 | XMS_ITS | Encounter Summary ---
Author Organization [facility] Address [address] [place] [address] Care Team Providers Care Director Of Acquisitions Name Role Phone Unavailable Primary Care Provider Unavailabl e Encounter Details Date Type Department Care Team (Late st Contact Info) Description 12/05/2009 Orders Only [facility] Laboratory Services - [facility] ([facility]) [address] [place], [place] [address] [place] [address] [place] [phone] Social History Tobacco Use Types Packs/Day [...] ? RODRIGUEZ, BRIAN ? Accession #: ? [id number] ? : ? 1950 (Age: 59) ??M [...] ?? lesions suggestive of a neoplastic focus. ??Molding Plasterer sections are submitted in (A1) and (A2). (Davina Ordoñez)/mpl ? End of Report ? [facility] ESCOTO 12/05/2009 12/06/2009 8:4 7 EST Jennifer Saenz MD PATHOLOGY ORDERABLES [facility] [address] [place] [address] documented in this encounter Visit Diagnoses Not on filedocumented in this encounter
--- OUTSIDE RECORDS SUMMARY | 2024-07-27 13:35 | XMS_ITS | Encounter Summary ---
Author Organization [facility] Address [address] [place] [address] Care Team Providers Care Lay Health Advocate Name Role Phone Maximilian Fall MD Primary Care Provider [phone] Encounter Details Date Type Department Care Team (Late st Contact Info) Description 11/28/[address] [facility] Pathology & Laboratory Medicine - [address] [id number] Outr Resulting Lab, Provider Social History Tobacco [...] Outr Resulting Lab MICROBIOLOGY - GENERAL ORDERABLES [facility] [address] [place] [address] * COVID-19 TESTING (11/27/2021 12:35 EST) COVID-19 rt-PCR Result Negative Negative 11/29/2021 16:23 EST [facility] Comment: This test has [...] developed and its performance characteristics determined by [facility]. It has not been cleared [...] defined by the FDA Performed on the Fabruso 7 Flex RT-PCR System. Performing Lab [facility] Lab 11/29/2021 16:23 EST [facility] Swab 11/27/2021 12:3 5 EST 11/28/2021 17:45 EST Provider Outr Resulting Lab MICROBIOLOGY - GENERAL ORDERABLES [facility] [address] [place] [address] documented in this encounter Visit Diagnoses Not on filedocumented in this encounter Care Teams Lay Health Advocate Relationship Specialty Start Date End Date Maximilian Fall MD PCP - General 03/18/16 documented as of this encounter
--- OUTSIDE RECORDS SUMMARY | 2024-07-27 13:35 | XMS_ITS | Encounter Summary ---
Author Organization [facility] Address [address] [place] [address] Care Team Providers Care Micro Computer Data Processor Name Role Phone Maximilian Fall MD Primary Care Provider [phone] Encounter Details Date Type Department Care Team (Late st Contact Info) Description 04/10/2020 Lab Requisition [facility] Pathology & Laboratory Medicine - [address] [id number] Outr Resulting Lab, Provider Social History Tobacco [...] 0.0 - 6.5 ng/mL 04/11/2020 10:46 EDT [facility] Blood VENOUS BLOOD / Unknown 04/10/2020 9:15 EDT 04/10/2020 15:53 EDT Narrative [facility] - 04/11/2020 10:46 EDT NOTE: Serum PSA concentration should not be interpreted as absolute evidence for the presence or absence of malignant disease. Assayed on Siemens [employer] XPT using chemiluminescent technology.??Values obtained by using different assay methods cannot be used interchangeably. Provider Outr Resulting Lab CHEMISTRY & BLOOD GAS ORDERABLES [facility] [address] [place] [id number] documented in this encounter Visit Diagnoses Not on filedocumented in this encounter Care Teams Micro Computer Data Processor Relationship Specialty Start Date End Date Maximilian Fall MD PCP - General 03/18/16 documented as of this encounter
--- OUTSIDE RECORDS SUMMARY | 2024-07-27 13:35 | XMS_ITS | Encounter Summary ---
Author Organization [facility] Address [facility] [place] [address] Care Team Providers Care Fiction And Nonfiction Prose Writer Name Role Phone Deacon Watters APRN Primary Care Provider [phone] Reason for Visit * Reason Onset Date Comments Referral 07/05/2024 Coronary Artery Disease 07/05/2024 Encounter Details Date Type Department Care Team (Late st Contact Info) Description 07/05/2024 Telephone Cardiology at [address] [address] Lesa Duncan, fleet service clerk; Coronary Artery Disease Social History Tobacco Use Types Packs/Day Years Used Date Smoking Tobacco: Former Cigarettes 4 30 1 12/01/1961 - 10/01/1992 Smokeless Tobacco: Former Chew Comments:Denies vaping Alcohol Use Standard Drinks/Week Comments Yes 0 (1 standard drink = 0.6 oz pur e alcohol) twice a year [facility] Utilities Answer Date Recorded In the past 12 months has e [employer], gas, oil, or water [employer] threatened to shut off services in your [...] any time in the past 12 m [facility], were you homeless or living in a [...] were not included. [facility] Clin[facility] Cardiology Clinic [address] [place] [address] [place] [address] Brian Rodriguez was discharged from [facility] with a referral to see train brakeman Dr. Franky Shaver following NSTEMI June 30. Brian Rodriguez is a 74 y.o. male with history of HTN, HLD, migraines, DM2, and UC who presented to [facility] for chest pain and was transferred to [facility] for NSTEMI found to have HFrEF. Course [...] Dion OSULLIVAN at [facility] ENDOSCOPY Current Medications. dicyclomine (Bentyl) 20 [...] the patient to see Cardiology here in [place]. documented in this encounter Plan of Treatment Upcoming Encounters Date Type Department Care Team (Late st Contact Info) Description 08/15/2024 9:00 AM EDT Office Visit [place] [address] Dion Osullivan MD [facility] [place] [address] 09/01/2024 9:40 AM EDT Office Visit Cardiology at [address] [place] [address] Franky Shaver MD [facility] [place] [address] 09/01/2024 11:20 AM EDT Office Visit Dermatology at [facility] [address] [place] [address] Gómez Mercer MD [facility] DR EDDIE [place] [address] 09/21/2024 2:45 PM EDT Office Visit [facility] Sp[facility] at [facility] [place] [address] Trung Hoyos MD [facility] [place] [address] documented as of this encounter Visit Diagnoses Not on filedocumented in this encounter Care Teams Fiction And Nonfiction Prose Writer Relationship Specialty Start Date End Date Deacon Watters, [employer] [address] [place] [address] PCP - General Family Medicine 02/17/22 documented as of this encounter
--- OUTSIDE RECORDS SUMMARY | 2024-07-27 13:35 | XMS_ITS | Clinical Summary ---
Author Organization [facility] Address [facility] [place] [address] Care Team Providers Care Die Presser Name Role Phone Deacon Watters APRN Primary Care Provider [phone] Allergies Active Allergy Reactions Criticality Noted Date [...] times daily. 540 tablet 3 09/21/2023 Active dicyclomine (Bentyl) 20 mg tablet TAKE [...] mouth daily. 90 tablet 3 07/05/2024 Active ketoconazole (Nizoral) 2 % CreamIndications: Tinea cruris APPLY TO THE AFFECTED AREAS ON THE GROIN TWICE DAILY 30 g 1 07/26/2024 Active Active Problems Problem Noted Date Diagnosed Date NSTEMI (non-ST elevated myocardial infarction) 0 06/30/2024 Anemia 08/25/2021 Overview (08/25/2021): ?? Mild ?? B12, iron all nl 2020 Ulcerative colitis 10/01/2011 Overview (12/06/2023): Colonoscopy 04/08/10 (Dr. Gomes [facility]) - inflammation only within the rectum and sigmoid; extent of the exam was to the hepatic flexure; biopsies proximal to the sigmoid nl Repeat exam 11/27/11 ([facility]): mildly active colitis in the sigmoid colon [...] ascending colon. Several HPs and one TA. [place] 03/2022 - [place] 1 limited to rectosigmoid, diverticulosis. No dysplasia TREATMENT: cortenemas, Asacol, Rowasa, prednisone, and imodium Diabetes mellitus 10/01/2011 Hearing loss 10/01/2011 GERD (gastroesophageal reflux disease) 1 Hydrocele 10/01/2011 Asthma 10/01/2011 Encounters Date Type Department Care Team Description 07/23/2024 Refill Dermatology at [place] [address] [place] [phone] Gómez Mercer MD Tinea cruris 07/05/2024 Abstract Cardiology at [address] [address] Lesa Duncan, RN 07/05/2024 Telephone Cardiology at [address] [phone] Lesa Duncan, medical office technology instructor; Coronary Artery Disease 07/01/2024 2:30 PM EDT - 07/01/2024 3:30 PM EDT Surgery [employer] [place] [address] Lizzette Hayden MD CARDIAC CATHETERIZATION 07/01/2024 Refill [place] [address] Dion Barlow MD 06/30/2024 3:44 PM EDT - 07/04/2024 3:25 PM EDT Hospital Encounter Heart and Vascular Unit Level 3 [place] [address] Triston Godinez MD Welch, Terrence D, MD NSTEMI (non-ST elevated myocardial infarction) (Primary Dx) Discharge Disposition: Home 06/29/2024 7:25 PM EDT Ancillary [place] [phone] Deacon Watters, TESTING DIRECTOR 06/29/2024 [place] [address] Ramakrishna Elliott MD 06/29/2024 External [place] [phone] 06/22/2024 8:00 AM EDT Office Visit [facility] [place] [phone] Trung Hoyos MD Radiculopathy of cervical region (Primary Dx) 06/22/2024 Travel 06/09/2024 Telephone [place] [phone] Marcelle Weinberg, JAZMINE 06/07/2024 1:20 PM EDT Office Visit Dermatology at [address] [phone] Gómez Mercer MD Tinea cruris 06/07/2024 12:55 PM EDT - 06/07/2024 11:59 PM EDT Hospital [place] [phone] Left sided colitis without complications Discharge Disposition: Home 06/06/2024 12:56 PM EDT - 06/06/2024 11:59 PM EDT Hospital [place] [phone] Left sided colitis without complications Discharge Disposition: Home 06/06/2024 8:00 AM EDT Office Visit [place] [address] Marcelle Weinberg, JAZMINE Left sided colitis without complications 06/06/2024 Telephone [place] [phone] Marcelle Weinberg, JAZMINE 06/06/2024 Travel from Last [...] any time in the past 12 m [facility], were you homeless or living in a [...] AM EDT Office Visit [place] [phone] Dion Barlow MD [facility] [place] [address] 09/01/2024 9:40 AM EDT Office Visit Cardiology at [address] [phone] Franky Shaver MD [facility] [place] [address] 09/01/2024 11:20 AM EDT Office Visit Dermatology at [facility] [address] [place] [phone] Gómez Mercer MD [facility] DR [place] [address] 09/21/2024 2:45 PM EDT Office Visit [facility] [place] [phone] Trung Hoyos MD [facility] [place] [address] Health Maintenance Due Date Last Done Comments CT Colonography 1950 FIT DNA 1950 FIT 1950 Pneumoccocal Vaccine: 65+ (1 of 2 - PCV) 1954 DM Opthalmology Exam 1958 DM Urine Microalbumin yearly 1958 Hepatitis C Screening 1966 Tdap adult 1967 Tetanus vaccine 1967 Zoster vaccine (1 of 2) 1998 Sigmoidoscopy 03/16/2017 03/16/2012, 03/16/2012 Covid-19 Vaccine (1 - 2022-2 4 season) 2024 Influenza (Flu) vaccine (1 o f 1 [...] PM EDT URINALYSIS BEAKER MICROSCPIC REFLEX EXAM ([facility]) Routine 07/03/2024 3:02 PM EDT URINALYSIS MICROSCOPIC [...] resultswithin the time period is included. Pathologist Maurice Glucometer, POC 274(H) 65 - 199 mg/dL 07/04/2024 2:12 PM EDT [facility] Comment:Supplemental ranges: <140 mg/dL before meals <180 mg/dL all other times of the day. Blood CAPILLARY BLOOD / Unknown 07/04/2024 1:49 PM EDT 07/04/2024 2:12 PM EDT Armond Denny MD POINT OF CARE TEST O RDERABLES [facility] [place] [address] * Scan Doc: Telemetry Strips (07/04/2024 7:32 AM EDT) Only the most recent of18 resultswithin the time period is included. Narrative 07/04/2024 7:32 AM EDT Ordered by an unspecified provider. Scanning Provider MEDIA MGR SCAN EXT O RDR/RSLT * (ABNORMAL) CBC (with Diff) (07/04/2024 1:43 AM EDT) Only the most recent of5 resultswithin the time period is included. Pathologist Maurice White Blood Cell 5.05 4.00 - 9.50 x10(3)/mc L 07/04/2024 2:00 AM EDT [facility] Red Blood Cell 3.11(L) 4.58 - 5.54 x10(6)/mc L 07/04/2024 2:00 AM EDT [facility] Hemoglobin 10.5(L) 13.7 - 16.5 g/dL 07/04/2024 2:00 AM EDT [facility] Hematocrit 31.5(L) 40.5 - 48.5 % 07[facility] Mean Cell Volume 101.3(H) 82.9 - 93.1 fL 07/04/2024 2:00 AM [facility] Mean Cell Hemoglobin 33.8(H) 27.5 - 32.1 pg 07/04/2024 2:00 AM [facility] Mean Cell Hemoglobin Concentration 33.3 32.0 - 35.7 g/dL 07/04/2024 2:00 AM [facility] Platelet 145 145 - 357 x10(3)/mc L 07/04/2024 2:00 AM [facility] Mean Platelet Volume 11.5 7.6 - 12.9 fL 07/04/2024 2:00 AM [facility] RDW Standard Deviation 48.2(H) 36.0 - 45.0 fL 07/04/2024 2:00 AM [facility] RDW coefficient of variation 13.1 11.4 - 13.8 % 07/04/2024 2:00 AM [facility] NRBC% auto 0.0 % 07/04/2024 2:00 AM [facility] NRBC Absolute 0.00 0.00 - 0.00 x10(3)/mc L 07/04/2024 2:00 AM [facility] Neutrophil % 65.9 % 07/04/2024 2:00 AM [facility] Neutrophil Absolute (ANC) - Automated 3.33 1.70 - 6.10 x10(3)/mc L 07/04/2024 2:00 AM [facility] Lymph % 20.8 % 07/04/2024 2:00 AM [facility] Lymph Absolute 1.05 0.90 - 3.20 x10(3)/mc L 07/04/2024 2:00 AM [facility] Monocyte % 9.3 % 07/04/2024 2:00 AM [facility] Monocyte Absolute 0.47 0.30 - 0.90 x10(3)/mc L 07/04/2024 2:00 AM EDT [facility] Eos % 3.0 % 07/04/2024 2:00 AM EDT [facility] Eos Absolute 0.15 0.00 - 0.40 x10(3)/mc L 07/04/2024 2:00 AM EDT [facility] Basophil % 0.6 % 07/04/2024 2:00 AM EDT [facility] Baso Absolute 0.03 0.00 - 0.10 x10(3)/mc L 07/04/2024 2:00 AM EDT [facility] Immature Gran % 0.4 % 2:00 AM EDT [facility] Immature Gran Absolute 0.02 0.00 - 0.04 x10(3)/mc L 07/04/2024 2:00 AM EDT [facility] Blood VENOUS BLOOD SPECIMEN / Unknown IP Care Team Draw / Unknown 07/04/2024 1:43 AM EDT 07/04/2024 1:52 AM EDT Triston Godinez MD HEMATOLOGY ORDERABLE S [facility] [place] [address] * Magnesium (07/04/2024 1:43 AM EDT) Only the most recent of4 resultswithin the time period is included. Magnesium 0.80 0.69 - 1.07 mMol/L 07/04/2024 2:23 AM EDT [facility] Blood VENOUS BLOOD SPECIMEN / Unknown IP Care Team Draw / Unknown 07/04/2024 1:43 AM EDT 07/04/2024 1:52 AM EDT Triston Godinez MD CHEMISTRY ORDERABLES [facility] [place] [address] * (ABNORMAL) Basic Metabolic Panel (07/04/2024 1:43 AM EDT) Only the most recent of5 resultswithin the time period is included. Glucose 156 65 - 199 mg/dL 07/04/2024 2:23 AM [facility] Comment:Glucose Concentratio n >=200 mg/dL plus symptoms is consistent with Diabetes Mellitus. Blood Urea Nitrogen 12 10 - 20 mg/dL 07/04/2024 2:23 AM [facility] Creatinine 1.27 0.80 - 1.50 mg/dL 07/04/2024 2:23 AM [facility] Sodium 141 135 - 145 mMol/L 07/04/2024 2:23 AM [facility] Potassium 3.9 3.5 - 5.0 mMol/L 07/04/2024 2:23 AM [facility] Chloride 108(H) 98 - 107 mMol/L 07/04/2024 2:23 AM [facility] Carbon Dioxide 22 22 - 31 mMol/L 07/04/2024 2:23 AM [facility] Anion Gap 11 5 - 15 mMol/L 07/04/2024 2:23 AM [facility] Calcium 9.4 8.5 - 10.5 mg/dL 07/04/2024 2:23 AM [facility] Est Glomerular Filtration Rate - Male 59 mL/min/1. 73 m?? 07/04/2024 2:23 AM [facility] Comment: This patient's estimated [...] MD CHEMISTRY ORDERABLES Performing Organization Address City/[facility]/ZIP Co de Phone Number [facility] [place] [address] * (ABNORMAL) Urinalysis Microscopic Reflex to Culture (07/03/2024 3:02 PM EDT) RBC, Urine 2 0 - 3 /HPF 07/03/2024 3:40 PM EDT [facility] WBC, Urine 55(H) 0 - 3 /HPF 07/03/2024 3:40 PM EDT [facility] Squamous Epithelial Cells, Urine 1 0 - 5 /HPF 07/03/2024 3:40 PM EDT [facility] Hyaline Casts, Urine 3(H) 0 - 2 /LPF 07/03/2024 3:40 PM EDT [facility] Comment 07/03/2024 3:40 PM EDT [facility] Comment:Interpret results wi th caution, microscopic results are from a suboptimal specimen. Bacteria, Urine Many(A) None /HPF 3:40 PM EDT [facility] Urine URINE SPECIMEN OBTAINED BY CLEAN CATCH PROCEDURE / Unknown Non Blood Collection / Unknown 07/03/2024 3:02 PM EDT 07/03/2024 3:13 PM EDT Armond Denny MD URINE ORDERABLES Performing Organization Address City/[facility]/ZIP Co de Phone Number [facility] [place] [address] * Urinalysis Microscopic with Reflex to Culture (07/03/2024 3:02 PM EDT) Urine URINE SPECIMEN OBTAINED BY CLEAN CATCH PROCEDURE / Unknown Non Blood Collection / Unknown 07/03/2024 3:02 PM EDT 07/03/2024 3:13 PM EDT Armond Denny MD URINE ORDERABLES [facility] [place] [address] * (ABNORMAL) Urinalysis with reflex Culture (07/03/2024 3:02 PM EDT) Glucose, Urine Dipstick Negative Negative 07/03/2024 3:40 PM EDT [facility] Protein, Urine Dipstick 30 mg/dL(A) Negative 07/03/2024 3:40 PM EDT [facility] Bilirubin, Urine Dipstick Small(A) Negative 07/03/2024 3:40 PM EDT [facility] Comment:Clinical correlation required for positive Urine Bilirubin results as false positive may occur with some drugs and drug related products. If a false positive is suspected a serum total bilirubin should be considered if clinically indicated. Urobilinogen, Urine Dipstick Normal Normal, 0.2 mg/dL, 1.0 mg/dL 07/03/2024 3:40 PM EDT [facility] pH, Urine (dipstick) 5.5 5.0 - 8.0 07/03/2024 3:40 PM EDT [facility] Blood, Urine Dipstick Negative Negative 07/03/2024 3:40 PM EDT [facility] Ketone, Urine Dipstick Trace(A) Negative 07/03/2024 3:40 PM EDT [facility] Nitrite, Urine Dipstick Positive(A) Negative 07/03/2024 3:40 PM EDT [facility] Leukocytes, Urine Dipstick Moderate(A) Negative 07/03/2024 3:40 PM EDT [facility] Specific [place] Urine Automated 1.024 1.005 - 1.030 07/03/2024 3:40 PM EDT [facility] Appearance, Urine Dipstick Cloudy(A) Clear 07/03/2024 3:40 PM EDT [facility] Color, Urine Dipstick Dark Yellow Yellow, Dark Yellow 07/03/2024 3:40 PM EDT [facility] Urine URINE SPECIMEN OBTAINED BY CLEAN CATCH PROCEDURE / Unknown Non Blood Collection / Unknown 07/03/2024 3:02 PM EDT 07/03/2024 3:13 PM EDT Armond Denny MD URINE ORDERABLES [facility] [place] [address] * (ABNORMAL) Urine culture (07/03/2024 3:02 PM EDT) Urine Culture 50,000-99,000 cfu/ml Escherichia coli(A) VITEK 2 METHOD 07/05/2024 8:01 AM EDT [facility] Urine Culture 10,000-49,000 cfu/ml mixed mucosal harika VITEK 2 METHOD 07/05/2024 8:01 AM EDT [facility] Urine URINE SPECIMEN OBTAINED [...] Denny MD MICROBIOLOGY - GENER AL ORDERABLES [facility] [place] [address] * CT Abdomen & Pelvis w Contrast (07/02/2024 3:13 AM EDT) [employer] Signature WORKSTATION ID [id number] RAD Anatomical Region Laterality Modality Abdomen, Pelvis [...] have questions please contact the health career portals teacher that requested your imaging first. ? Narrative [...] who have questions please contactthe health career portals teacher that requested your imaging first. Electronically signed by: Gutierrez Hamilton MD, [facility]([phone]), at 07/02/2024 9:20 AM Triston Godinez MD [...] (Bezet) 473 ms MUSE SYSTEM Calculated P [place] 63 degrees MUSE SYSTEM Calculated R [place] 87 degrees MUSE SYSTEM Calculated T [place] 8 degrees MUSE SYSTEM INTERPRETATION Normal sinus [...] Modality Other Narrative 07/01/2024 7:47 PM EDT ?[facility] ? Cardiac Catheterization/Intervention Report ? Patient Name: Naya Rodriguez ? Procedure Date: 07/01/2024 ? A #: [id number] ? Primary Physician: Mogadam, Emad ? Case #: [id number] ? File Name: [id number] ? Catheterization Order Number: [id number] ? [facility] ?[facility] ? Final Report [place], [place] ? Patient Name: ? Naya M. Rodriguez ?ID#: ?[id number] ? : ?1950 ? Procedure Date: ? July 01, 2024 ? Case #: ? [id number] ? Room: ? 5 ? Case Physician: ? Lizzette Hayden M.D. ? Start: ?15:10 ?Fellow: ? Max Wally Vega M.D. ? Admission: ??06/30/2024 ?Elmo Byrd [...] was Urgent. The indication for ?the laborer poultry hatchery visit is ACS less than or equal [...] ? A premounted 2.75 x 22 mm [place] Bourg (EILEEN) was deployed ? with a maximum [...] administered prior to arrival in the laborer poultry hatchery. ?Recommended anti-platelet/anti-thrombotic regimen: ?Continue aspirin 81 mg daily. ?Continue clopidogrel 75 mg daily. ?These recommendations are made at the time of the intervention. Patient ?and provider preferences or a changing clinical situation may require ?modification of this regimen. Consult [facility] Interventional Cardiology for ?questions. ?This patient has [...] against any medical treatment. Consult ?http://tools.acc.org/DAPTriskapp/#!/content/calculator/ or [facility] ?Interventional Cardiology for questions ? Conclusions: ?* [...] Procedure Note Lizzette Hayden MD - 07/14/2024 [facility] Cardiac Catheterization/Intervention Report Patient Name: Naya Rodriguez Procedure Date: 07/01/2024 A #: [id number] Primary Physician: Lizzette Hayden Case #: [id number] File Name: [id number] Catheterization Order Number: [id number] [facility] FinalReport [place], [place] Patient Name: Naya Rodriguez ID#:[id number] :1950 Procedure Date: July 01, 2024 Case [...] patient was designated as ASA Class III. [facility] is 4: Vulnerable. Diagnostic Tests: Medications Prior to Procedure: Aspirin, Angiotensin II Receptor Marci and Statin. Indications for Diagnostic Cath: The priority of the diagnostic procedure was Urgent. The indicationfor the laborer poultry hatchery visit is ACS less than or equal [...] time was 37.0 minutes, dose area product [id number] Gy/cm2 and air kerma was 1,874 mGY. [...] The lesion was predilated with a 2.50mm [id number] MM balloon with a maximum inflation pressure of 14atmospheres. A premounted 2.75 x 22 mm [place] Bourg (EILEEN) wasdeployed with a maximum inflation pressure [...] administered prior to arrival in the laborer poultry hatchery. Recommended anti-platelet/anti-thrombotic regimen: Continue aspirin 81 mg daily. Continue clopidogrel 75 mg daily. These recommendations are made at the time of the intervention.Patient and provider preferences or a changing clinical situation mayrequire modification of this regimen. Consult [facility] Interventional Cardiologyfor questions. This patient has a [...] or against any medical treatment.Consult http://tools.acc.org/DAPTriskapp/#!/content/calculator/ or [facility] Interventional Cardiology for questions Conclusions: * One [...] Heparin 0.31 IU/mL 07/01/2024 11:25 AM EDT [facility] Comment: Heparin (anti-Xa) levels [...] EDT Triston Godinez MD HEMATOLOGY ORDERABLE S [facility] [place] [address] * (ABNORMAL) Hemogram (07/01/2024 10:32 AM EDT) Only the most recent of2 resultswithin the time period is included. White Blood Cell 7.02 4.00 - 9.50 x10(3)/mc L 07/01/2024 11:20 AM T [facility] Red Blood Cell 3.68(L) 4.58 - 5.54 x10(6)/mc L 07/01/2024 11:20 AM EDT [facility] Hemoglobin 12.2(L) 13.7 - 16.5 g/dL 07/01/2024 11:[address] [facility] Hematocrit 36.5(L) 40.5 - 48.5 % 07/01/2024 11:20 AM EDT [facility] Mean Cell Volume 99.2(H) 82.9 - 93.1 fL 07/01/2024 [facility] Mean Cell Hemoglobin 33.2(H) 27.5 - 32.1 pg 07/01/2024 11:20 AM EDT [facility] Mean Cell Hemoglobin Concentration 33.4 32.0 - 35.7 g/dL 07/01/2024 11:20 AM EDT [facility] Platelet 167 145 - 357 x10(3)/mc L 07/01/2024 11:20 AM EDT [facility] Mean Platelet Volume 11.4 7.6 - 12.9 fL 07/01/2024 11:20 AM EDT [facility] RDW Standard Deviation 46.5(H) 36.0 - 45.0 fL 07/01/2024 11:20 AM EDT [facility] RDW coefficient of variation 12.9 11.4 - 13.8 % 07/01/2024 11:[address] [facility] NRBC% auto 0.0 % 07/01/2024 11:[address] [facility] NRBC Absolute 0.00 0.00 - 0.00 x10(3)/mc L 07/01/2024 11:20 AM EDT [facility] Blood VENOUS BLOOD SPECIMEN / Unknown IP Care Team Draw / Unknown 07/01/2024 10:32 AM EDT 07/01/2024 10:54 AM EDT Armond Denny MD HEMATOLOGY ORDERABLE S [facility] [place] [address] * (ABNORMAL) Troponin-T, Yuriy Sensitivity 3 Hour (06/30/2024 11:25 PM EDT) [facility] Troponin-T, High Sensitivity 1,274(H) <=22 ng/L 07/01/2024 12:14 AM EDT [facility] Comment: This patient's troponin [...] troponin value can be found in the [facility] Test Catalog Troponin - https://[email or web address] hospitalEmergent Properties.testcatElectron Database.org/catalogs/565/files/05458 Reference: Fourth Grant Definition of Myocardial Infarction. Journal of the [place] College [employer] 2018;72:1163-8676 Troponin-T, HS 3 hr delta 65 ng/L 07/01/2024 12:14 AM EDT [facility] Comment:The 3 hour Troponin T delta value is the absolute difference between the Troponin T concentrations of the initial and subsequent sample collected between 2 h: 45 min and 6 h following the initial collection Blood VENOUS BLOOD SPECIMEN / Unknown IP Care Team Draw / Unknown 06/30/2024 11:25 PM EDT 06/30/2024 11:47 PM EDT Triston Godinez MD CHEMISTRY ORDERABLES [facility] [place] [address] * (ABNORMAL) Troponin-T, High Sensitivity 1 Hour (06/30/2024 8:22 PM EDT) [facility] Troponin-T, High Sensitivity 1,234(H) <=22 ng/L 06/30/2024 9:22 PM EDT [facility] Comment: This patient's troponin [...] troponin value can be found in the [facility] Test Catalog Troponin - https://[facility].testcatalog.org/catalogs/565/files/74996 Reference: Fourth Grant Definition of Myocardial Infarction. Journal of the [place] College [employer]iology 2018;72:5987-2175 Troponin-T, HS 1 hr delta 06/30/2024 9:22 PM EDT [facility] Comment:Delta troponin value not calculated, sample collected outside of delta calculation time limit. Blood VENOUS BLOOD SPECIMEN / Unknown Venipuncture / Unknown 06/30/2024 8:22 PM EDT 06/30/2024 8:40 PM EDT Triston Godinez MD CHEMISTRY ORDERABLES Performing Organization Address City/State/[facility] Co de Phone Number [facility] [place] [address] * XR Abdomen Flat & Upright (06/30/2024 6:56 PM EDT) [employer] WORKSTATION ID [id number] RAD Anatomical Region Laterality Modality Abdomen N/A Digital Radiogra phy Impressions 06/30/2024 9:12 PM EDT No obstruction or perforation. Thank you for letting us participate in the care of this patient. ??If you are a health care provider and have any questions regarding this report, please contact the number below. ??For patients who have questions please contact the health career portals teacher that requested your imaging first. ? Narrative [...] who have questions please contactthe health career portals teacher that requested your imaging first. Triston Godinez MD IMG DX ORDERABLES * (ABNORMAL) Troponin-T, High Sensitivity (06/30/2024 6:09 PM EDT) [facility] Signature Troponin-T, High Sensitivity Initial 1,209([facility] ) <=22 ng/L 06/30/2024 7:23 PM EDT [facility] Comment: This patient's troponin [...] troponin value can be found in the [facility] Test Catalog Troponin - https://[email or web address]-.testcatalog.org/catalogs/565/files/75739 Reference: Fourth Grant Definition of Myocardial Infarction. Journal of the [place] College [employer]iology 2018;72:7121-6353 Blood VENOUS BLOOD SPECIMEN / Unknown Venipuncture / Unknown 06/30/2024 6:09 PM EDT 06/30/2024 6:18 PM EDT Triston Godinez MD CHEMISTRY ORDERABLES [facility] [place] [address] * TSH (06/30/2024 6:09 PM EDT) Thyroid Stimulating Hormone 2.80 0.27 - 4.20 mcIU/mL 06/30/2024 6:51 PM EDT [facility] Blood VENOUS BLOOD SPECIMEN / Unknown Venipuncture / Unknown 06/30/2024 6:09 PM EDT 06/30/2024 6:18 PM EDT Triston Godinez MD CHEMISTRY ORDERABLES [facility] [place] [address] * (ABNORMAL) pro-Brain Natriuretic Peptide (06/30/2024 6:09 PM EDT) NT-proBNP 2,259(H) <=449 pg/mL 06/30/2024 6:51 PM EDT [facility] Blood VENOUS BLOOD SPECIMEN / Unknown Venipuncture / Unknown 06/30/2024 6:09 PM EDT 06/30/2024 6:18 PM EDT Triston Godinez MD CHEMISTRY ORDERABLES Performing Organization Address City/[facility]/ZIP Co de Phone Number [facility] [place] [address] * Lipid Panel (Reflex Direct LDL) (06/30/2024 6:09 PM EDT) Cholesterol, Total 197 mg/dL 06/30/2024 6:51 PM EDT [facility] Comment: Desirable: < 200 mg/dL Borderline High: 200 - 239 mg/dL High: > or = 240 mg/dL Triglyceride 230 mg/dL 06/30/2024 6:51 PM EDT [facility] Comment: Normal: <150 mg/dL Borderline High: 150-199 mg/dL High: 200-499 mg/dL Very High: > or =500 mg/dL HDL Cholesterol 36 mg/dL 6:51 PM EDT [facility] Comment:Males: High Risk: <4 0 mg/dL LDL Cholesterol 120 mg/dL 6:51 PM EDT [facility] Comment: Desirable: <100 mg/dL Above Desirable: 100-129 mg/dL Borderline High: 130-159 mg/dL High: 160-189 mg/dL Very High: > or =190 mg/dL Note: LDL calculation updated to the NIH LDL formula as of 06/26/2024 Non-HDL Cholesterol 161 mg/dL 06/30/2024 6:51 PM EDT [facility] Comment: Desirable: <130 mg/dL Above Desirable: 130-159 mg/dL Borderline High: 160-189 mg/dL High: 190-219 mg/dL Very High: > or = 220 mg/dL Blood VENOUS BLOOD SPECIMEN / Unknown Venipuncture / Unknown 06/30/2024 6:09 PM EDT 06/30/2024 6:18 PM EDT [facility] LABORATORY - 06/30/2024 6:51 PM [...] ACC/AHA Guidelines (most recently Brianne et al. [facility] 08/26/22): * For individuals with [...] artery disease) Triston Godinez MD CHEMISTRY ORDERABLES [facility] [place] [place] [address] * (ABNORMAL) Hemoglobin A1c (06/30/2024 6:08 PM EDT) [facility] Hemoglobin A1c 7.3(H) 4.3 - 5.6 % 06/30/2024 9:03 PM EDT [facility] Comment: Per ADA guidelines, [...] red blood cell turnover may not be airport representative of glycemic control. Reference Interval: 4.3 - 5.6% 5.7 - 6.4%: Consistent with prediabetes >=6.5%: Consistent with diagnosis of diabetes mellitus Estimated Average Glucose 06/30/2024 9:03 PM EDT [facility] Comment:Not Calculated. Blood VENOUS BLOOD SPECIMEN / Unknown Venipuncture / Unknown 06/30/2024 6:08 PM EDT 06/30/2024 6:18 PM EDT Narrative [facility] - 06/30/2024 9:03 PM EDT Estimated average glucose (eAG) is calculated from the equation described in: John ELLISON, Inna J, Nic R, et al. ??Translating the A1C assay into estimated average glucose values. ??Diabetes Care 2008:31(8):0855-8461. Additional resources are available on the ADA website (diabetes.org). Triston Godinez MD CHEMISTRY ORDERABLES Performing Organization Address City/State/[facility] Co de Phone Number [facility] [place] [place] [address] * ECHO COMPLETE W CONTRAST (06/30/2024 5:22 [...] NSTEMI (non-ST elevation myocardial infarction) Exam Location: [facility]. ? Conclusions -Left ventricular systolic function is moderately reduced. The left ventricular ejection fraction is 36% by Dowd's biplane. The anterolateral and inferolateral barahona are akinetic. The anterior wall is hypokinetic. -Right ventricle is mildly dilated. Systolic function is normal. -No significant valve disease. -See report for additional findings. No prior study is available. Procedure Complete-[id number]. Image enhancement Optison was used for left [...] Godinez MD - 06/30/2024 Version: 1 Name: ANYA RODRIGUEZ Study Date: 06/30/2024,4: 39 PM BP: 137 / 78 mmHg Patient Location:L3WB^374^A : 1950 (MM/DD/YYYY) Height: 193 cm Age: 74 Years Weight: 113 kg Gender: Male BSA: 2.43 m?? Ordering Physician: TRISTON GODINEZ Referring Physician: KENJI THOMAS Performed By: Carol Villarreal Reason For Study: NSTEMI (non-ST elevation myocardial infarction) Exam Location: [facility]. Conclusions -Left ventricular systolic function is moderately reduced. The leftventricular ejection fraction is 36% by Dowd's biplane. The anterolateral andinferolateral barahona are akinetic. The anterior wall is hypokinetic. -Right ventricle is mildly dilated. Systolic function is normal. -No significant valve disease. -See report for additional findings. No prior study is available. Procedure Complete-[id number]. Image enhancement Optison was used for left [...] purpose is for storage only. Deacon Watters TESTING DIRECTOR IMG FILM LIBRARY O RDERABLES Performing Organization Address City/[facility]/ZIP Co de Phone Number [place], [place] * External Cardiology Result (06/29/2024 4:33 PM EDT) Anatomical Region Laterality Modality Other Historical Provider EXTERNAL CARDIOLO GY RESULT * Campylobacter Antigen (06/07/2024 9:00 AM EDT) Campylobacter Ag Immunoassay Negative for Campylobacter Antigen [facility] Stool 06/07/2024 9:00 AM EDT 06/07/2024 1:32 PM EDT Narrative Resulting Agency Comment Spec In Lab Marcelle Weinberg TESTING DIRECTOR MICROBIOLOGY - GE NERAL ORDERABLES Performing Organization Address [facility] Co de Phone Number [facility] [place] [address] * Shiga Toxin Detection (06/07/2024 9:00 AM EDT) Shiga Toxin Assay EIA Negative for Shiga Toxin 1 EIA Negative for Shiga Toxin 2 [facility] Stool 06/07/2024 9:00 AM EDT 06/07/2024 1:32 PM EDT Narrative Resulting Agency Comment Spec In Lab Marcelle Weinberg TESTING DIRECTOR MICROBIOLOGY - GE NERAL ORDERABLES Performing Organization Address City/[facility]/ZIP Co de Phone Number [facility] [place] [address] * Stool culture (06/07/2024 9:00 AM EDT) Stool Culture No enteric pathogens isolated [facility] Stool 06/07/2024 9:00 AM EDT 06/07/2024 1:32 PM EDT Narrative Resulting Agency Comment Spec In Lab Marcelle Conte Dg Weinberg TESTING DIRECTOR MICROBIOLOGY - GE NERAL ORDERABLES Performing Organization Address [facility] de Phone Number [facility] [place] [address] * C. Difficile Screen (06/06/2024 5:30 PM EDT) C Diff Interp Negative Negative [facility] Comment: Ag/Tox Neg C. diff?? Negative Clostridium difficile is not present in the specimen. If patient is having diarrhea suspected to be from an infectious cause, then Soap & Water Contact Precautions are still required. Stool 06/06/2024 5:30 PM EDT 06/07/2024 1:32 PM EDT Narrative Resulting Agency Comment Spec In Lab Marcelle Conte Dg Loov TESTING DIRECTOR MICROBIOLOGY - GE NERAL ORDERABLES Performing Organization Address [facility] de Phone Number [facility] [place] [address] * (ABNORMAL) Calprotectin, Stool (06/06/2024 5:30 PM EDT) Calprotectin, Stool 112(H) <=79 mcg/g [facility] Comment: Calprotectin Concentration ? Interpretation ? < 80 mcg/g ?Normal ? 80 ? 160 mcg/g ?Borderline ? >160 mcg/g ?Elevated Stool 06/06/2024 5:30 PM EDT 06/07/2024 1:07 PM EDT Narrative Resulting Agency Comment Spec In Lab Marcelle Conte gD Loov TESTING DIRECTOR BODY FLUIDS AND S TOOLS ORDERABLES Performing Organization Address [facility] Co de Phone Number [facility] [place] [address] * (ABNORMAL) CRP, acute inflammation (06/06/2024 9:04 AM EDT) [facility] C-Reactive Protein 6.4(H) <=4.9 mg/L [facility] Blood 06/06/2024 9:04 AM EDT 06/06/2024 9:12 AM EDT Narrative Resulting Agency Comment Spec In Lab Marcelle Weinberg TESTING DIRECTOR CHEMISTRY ORDERAB LES [facility] [place] [place] [address] * Differential, Automated (06/06/2024 9:04 AM EDT) [facility] Neutrophil % 70.3 % [facility] Neutrophil Absolute 4.36 1.70 - 6.10 x10(3)/[facility] LABORATORY Lymph % 19.7 % [facility] Lymphocytes Abs 1.2 0.9 - 3.2 x10(3)/[facility] LABORATORY Monocyte % 7.7 % [facility] Monocyte Abs 0.5 0.3 - 0.9 x10(3)/[facility] LABORATORY Eos % 1.3 % [facility] Eosinophils Abs 0.1 0.0 - 0.4 x10(3)/[facility] LABORATORY Basophil % 0.5 % [facility] Baso Absolute 0.0 0.0 - 0.1 x10(3)/[facility] LABORATORY Immature Gran % 0.50 % [facility] Comment: Immature granulocytes(IG's)percentage and absolute count will include metamyelocytes, myelocytes, and promyelocytes. Blood smears from CBCs yielding IG's will be scanned manually for concordance. If this scan disagrees with the automated IG or if promyelocytes are noted, a manual differential will be performed. Immature Gran Absolute 0.03 0.00 - 0.04 x10(3)/mcL [facility] Blood 06/06/2024 9:04 AM EDT 06/06/2024 9:12 AM EDT Narrative Resulting Agency Comment Spec In Lab Marcelle Weinberg APRN HEMATOLOGY ORDERA BLES Performing Organization Address [facility] Co de Phone Number [facility] [place] [place] [address] * Sedimentation rate (06/06/2024 9:04 AM EDT) Sedimentation Rate Automated 38 3 - 46 mm/hr [facility] Comment: Effective November 02, 2019 new capillary photometric technology has resulted in a change in reference ranges. It is recommended that each ESR result be reviewed with its own age appropriate reference range. Blood 06/06/2024 9:04 AM EDT 06/06/2024 9:12 AM EDT Narrative Resulting Agency Comment Spec In Lab Marcelle Weinberg APRN HEMATOLOGY ORDERA BLES Performing Organization Address [facility] Co de Phone Number [facility] [place] [place] [address] * Comprehensive metabolic panel (non-fasting) (06/06/2024 9:04 AM EDT) Glucose 136 65 - 199 mg/dL [facility] Comment:Diabetes: >=200 mg/d L plus symptoms Blood Urea Nitrogen 16 10 - 20 mg/dL [facility] Creatinine 1.05 0.80 - 1.50 mg/dL [facility] Sodium 144 135 - 145 mmol/L [facility] Potassium 4.2 3.5 - 5.0 mmol/L [facility] Comment: Please note: ??Patients with WBC >100,000 may have falsely elevated Potassium levels. ??For accurate Potassium quantification in these patients send serum separator tube (gold top) for subsequent determinations. ??Contact the Clinical Chemistry Laboratory if there are any questions. Chloride 107 98 - 107 mmol/L [facility] Carbon Dioxide 26 22 - 31 mmol/L [facility] Anion Gap 11 5 - 15 mmol/L [facility] Calcium 9.8 8.5 - 10.5 mg/dL [facility] Protein, Total 7.6 6.1 - 8.0 g/dL [facility] Albumin 4.1 3.2 - 5.2 g/dL [facility] Aspartate Aminotransferase 16 0 - 39 unit/L [facility] Alanine Aminotransferase 18 0 - 55 unit/L [facility] Alkaline Phosphatase 71 40 - 130 unit/L [facility] Bilirubin, Total 0.5 0.2 - 1.3 mg/dL [facility] Est Glomerular Filtration Rate 74 >=60 mL/min/1. 73 m?? [facility] Comment: This patient's estimated [...] Agency Comment Spec In Lab Marcelle Weinberg TESTING DIRECTOR CHEMISTRY ORDERAB LES [facility] [place] [address] * COLONOSCOPY (01/20/2024 10:01 AM EST) COLONOSCOPY [facility] Endoscopy Procedure Date: 01/20/2024 10:01 AM ? Patient Name: Naya Rodriguez ? Date of : 1950 ? Age: 73 ? Order #: [id number] ? Instrument Name: [id number] ? Procedure: ? Colonoscopy Indications: ? Follow-up [...] ? physician, the nurse and the ? copy technician in the pre-procedure ? area in [...] performed the entire procedure. ? _ Anthony Thacker Yakelin, 01/20/2024 10:53:48 AM Number of Addenda: 0 Note Initiated On: 01/20/2024 10:01 AM PROVATION 01/20/2024 10:0 1 AM EST Deacon Watters TESTING DIRECTOR GENERAL SURGICAL O RDERABLES PROVATION * FLEXIBLE SIGMOIDOSCOPY (03/16/2012 1:15 PM EDT) FLEXIBLE SIGMOIDOSCOPY [facility] Endoscopy Patient Name: Naya Rodriguez ? Procedure Date: 03/16/2012 1:15 PM ? Date of : 1950 ? Age: 61 ? Order #: [id number] ? Procedure: ? Flexible Sigmoidoscopy Indications: ? pt with active UC, assess severity ? prior to entry in MTX study Providers: ? Enrico Tellez MD, April Augustine ? RONY Archibald, Kingsley Oneal, ? Air Traffic Control Equipment Repairer Referring MD: ?Maximilian Fall MD Requesting Provider: [...] Documents on File Type Date Recorded Patient Radiotelegraph Operator Servicer Expl anation Advance Directives and Livin g [...] capacity to make decision: Yes Care Teams Die Presser Relationship Specialty Start Date End Date Deacon Watters, TESTING DIRECTOR [address] [place] [address] PCP - General Family Medicine 02/17/22
--- OUTSIDE RECORDS SUMMARY | 2024-07-27 13:35 | XMS_ITS | Encounter Summary ---
Author Organization [facility] Address [address] [place] [address] Care Team Providers Care Marble Polisher Name Role Phone Maximilian Fall MD Primary Care Provider [phone] Encounter Details Date Type Department Care Team (Late st Contact Info) Description 08/15/2022 Lab Requisition [facility] Pathology & Laboratory Medicine - [address] [address] Zeyad Hudson, [address] [place] [address] Neoplasm of unspecified behavior of bone, soft [...] explore management options, if applicable. 08/18/2022 11:15 [facility] Final Diagnosis A. SKIN OF NASAL DORSUM, RIGHT, SHAVE BIOPSY: - Basal cell carcinoma, infiltrative type. - Basal cell carcinoma present at peripheral and deep tissue edges. 08/18/2022 11:15 [facility] Attestation By the signature below, the attending physician certifies that they have 1) personally conducted a gross and/or microscopic examination of the described specimen(s), and/or personally interpreted the results of laboratory testing of the described specimen(s), and 2) personally rendered or confirmed the above diagnosis. 08/18/2022 11:15 [facility] at [address] Microscopic Description [...] of the islands and stroma. 08/18/2022 11:15 [facility] Clinical History History BCC; clinical diagnosis code: D49.2 08/18/2022 11:15 [facility] Gross Description A. Received [...] A1-A3. TOLU CHRIS 08/16/2022 10:29 08/18/2022 11:15 [facility] Performing Lab [facility] 08/18/2022 11:15 [facility] Scanned Images 08/18/2022 11:15 [facility] Tissue TISSUE SPECIMEN FROM SKIN / Unknown 08/14/2022 10:25 EDT 08/15/2022 21:12 EDT Zeyad MIRAMONTES PATHOLOGY ORDERABL ES [facility] [address] [place] [address] documented in this encounter Visit Diagnoses Diagnosis Neoplasm of unspecified behavior of bone, soft tissue, and skin documented in this encounter Care Teams Marble Polisher Relationship Specialty Start Date End Date Maximilian Fall MD PCP - General 03/18/16 documented as of this encounter
--- OUTSIDE RECORDS SUMMARY | 2024-07-27 13:35 | XMS_ITS | Clinical Summary ---
Author Organization [facility] Address [address] [place] [address] Care Team Providers Care Java J2Ee Technical Lead Name Role Phone Maximilian Fall MD Primary Care Provider Encounters Date Type Department Care Team Description 06/29/2024 18:51 EDT - 06/29/2024 23:59 EDT Hospital Encounter [facility] Secondary Reads [place] Discharge Disposition: Home or [...] Risk Screening 2013 COVID-19 Vaccine ( season) 2024 Procedures Procedure Name Priority Date/Time Associated Diagnosis Comments XR OUTSIDE IMAGES CHEST Routine 06/29/2024 18:51 EDT from Last 3 Months Results * XR OUTSIDE IMAGES CHEST (06/29/2024 18:51 EDT) Narrative 06/29/2024 18:51 EDT This is a non-reportable exam. Provider Unknown MD SHERMAN OTHER IMAGING OR DERABLES from Last 3 Months Care Teams Java J2Ee Technical Lead Relationship Specialty Start Date End Date Maximilian Fall MD PCP - General 03/18/16
--- OUTSIDE RECORDS SUMMARY | 2024-07-27 13:35 | XMS_ITS | Encounter Summary ---
Author Organization [facility] Address [facility] [place] [address] Care Team Providers Care Band Sawing Machine Operator Name Role Phone Deacon Watters APRN Primary Care Provider [phone] Encounter Details Date Type Department Care Team (Late st Contact Info) Description 07/05/2024 Abstract Cardiology at [address] [address] Lesa Duncan, RN Social History Tobacco Use Types Packs/Day Years Used Date Smoking Tobacco: Former Cigarettes 4 30 1 12/01/1961 - 10/01/1992 Smokeless Tobacco: Former Chew Comments:Denies vaping Alcohol Use Standard Drinks/Week Comments Yes 0 (1 standard drink = 0.6 oz pur e alcohol) twice a year [facility] Utilities Answer Date Recorded In the past 12 months has e [employer], gas, oil, or water [place] threatened to shut off services in your [...] any time in the past 12 m [facility], were you homeless or living in [...] 9:00 AM EDT Office Visit [place] [address] Dion Barlow MD [facility] [place] [address] 09/01/2024 9:40 AM EDT Office Visit Cardiology at [address] [phone] Franky Shaver MD [facility] [place] [address] 09/01/2024 11:20 AM EDT Office Visit Dermatology at [facility] [address] [place] [phone] Gómez Mercer MD [facility] [address] [place] [address] 09/21/2024 2:45 PM EDT Office Visit [facility] [place] [address] Trung Hoyos MD [facility] [place] [address] documented as of this encounter Visit Diagnoses Not on filedocumented in this encounter Care Teams Band Sawing Machine Operator Relationship Specialty Start Date End Date Deacon Watters, FUEL HANDLER [address] [place] [address] [address] [place] [address] PCP - General Family Medicine 02/17/22 documented as of this encounter
--- OUTSIDE RECORDS SUMMARY | 2024-07-27 13:35 | XMS_ITS | Encounter Summary ---
Author Organization [facility] Address [address] [place] [address] Care Team Providers Care Conformal Pad Former Name Role Phone Maximilian Fall MD Primary Care Provider [phone] Encounter Details Date Type Department Care Team (Late st Contact Info) Description 12/31/2017 Results Only [facility] [phone] Tamara Reza, [address] [place], [place] [id number] Social History Tobacco Use Types Packs/Day Years [...] ? NAYA RODRIGUEZ ? Accession #: ? [id number] ? : ? 1950 (Age: 67) ??M [...] 9:44 AM End of Report [facility] 12/31/2017 16:3 5 EST 01/01/2018 16:35 EST Tamara Reza DO PATHOLOGY ORDER ASHLIE [facility] [address] [place] [address] documented in this encounter Visit Diagnoses Not on filedocumented in this encounter Care Teams Conformal Pad Former Relationship Specialty Start Date End Date Maximilian Fall MD PCP - General 03/18/16 documented as of this encounter
--- OUTSIDE RECORDS SUMMARY | 2024-07-27 13:35 | XMS_ITS | Encounter Summary ---
Author Organization [facility] Address [address] [place] [address] Care Team Providers Care Wordpress Developer Name Role Phone Sharad Leon MD Primary Care Provider Unavail able Encounter Details Date Type Department Care Team (Late st Contact Info) Description 03/13/2016 Results Only [facility] [phone] Marcy Laurent, DO [address] [place] [address] Social History Tobacco Use Types [...] ? BRIAN RODRIGUEZ ? Accession #: ? [id number] ? : ? 1950 (Age: 65) ??M [...] adjacent to the proximal stapled margin, two wire rope sales representative cross sections and one-half of the longitudinally bisected distal tip are submitted in 1. Dr. Beth 03/17/2016 3:13 PM End of Report [facility] 03/13/2016 19:4 2 EDT 03/14/2016 19:42 EDT Marcy Laurent DO PATHOLOGY ORDERABLES [facility] [address] [place] [address] * SUSCEPTIBILITY (03/13/2016 12:15 EDT) Result ESCHERICHIA COLI Organism identification performed by client. 03/17/2016 7:51 EDT [facility] URINE / Unknown 03/13/2016 [...] GENER AL ORDERABLES Performing Organization Address City/[facility] Co de Phone Number [facility] [address] [place] [address] documented in this encounter Visit Diagnoses Not on filedocumented in this encounter Care Teams Wordpress Developer Relationship Specialty Start Date End Date Sharad Leon MD PCP - General 12/07/09 03/17/16 documented as of this encounter
--- OUTSIDE RECORDS SUMMARY | 2024-07-27 13:35 | XMS_ITS | Encounter Summary ---
Author Organization [facility] Address [address] [place] [address] Care Team Providers Care Pbx Technician Name Role Phone Maximilian Fall MD Primary Care Provider [phone] Encounter Details Date Type Department Care Team (Latest Contact Info) Description 12/31/2017 9:43 EST - 12/31/2017 23:59 EST Hospital Encounter [address] [address] Unknown, Provider, Discharge Disposition: Home or Self Care Social History Tobacco Use Types Packs/Day Years Used Date Smoking Tobacco: Never Assessed Sex and Gender Information Value Date Recorded Sex Assigned at Not on file Gender Identity Not on file Sexual Orientation Not on file documented as of this encounter Discharge Disposition Disposition Code Departure Means Destination Home or Self Retirement documented in this encounter Plan of Treatment Not on file documented as of this encounter Visit Diagnoses Not on filedocumented in this encounter Care Teams Pbx Technician Relationship Specialty Start Date End Date Maximilian Fall MD PCP - General 03/18/16 documented as of this encounter
--- OUTSIDE RECORDS SUMMARY | 2024-07-27 13:35 | XMS_ITS | Encounter Summary ---
Author Organization [facility] Address [address] [place] [address] Care Team Providers Care Grounds And Nursery Specialist Name Role Phone More Fall MD Primary Care Provider Encounter Details Date Type Department Care Team (Late st Contact Info) Description 09/04/2016 Results Only [facility]- [facility] [phone] More Fall MD [address] [place] [address] Social History Tobacco Use Types Packs/Day Years [...] ? NAYA RODRIGUEZ ? Accession #: ? [id number] ? : ? 1950 (Age: 66) ??M [...] 2:42 PM End of Report [facility] 09/04/2016 11:2 3 EDT 09/05/2016 11:23 EDT More Fall MD PATHOLOGY ORDERABLES [facility] [address] [place] [address] documented in this encounter Visit Diagnoses Not on filedocumented in this encounter Care Teams Grounds And Nursery Specialist Relationship Specialty Start Date End Date More Fall MD PCP - General 03/18/16 documented as of this encounter
--- OUTSIDE RECORDS SUMMARY | 2024-07-27 13:35 | XMS_ITS | Encounter Summary ---
Author Organization [facility] Address [address] [place] [address] Care Team Providers Care Cardiopulmonary Technologist Name Role Phone Maximilian Fall MD Primary Care Provider [phone] Encounter Details Date Type Department Care Team (Late st Contact Info) Description 07/09/2021 Lab Requisition [facility] Pathology & Laboratory Medicine - [address] [id number] Outr Resulting Lab, Provider Social History Tobacco [...] Outr Resulting Lab MICROBIOLOGY - GENERAL ORDERABLES [facility] [address] [place] [address] * COVID-19 TESTING (07/08/2021 16:45 EDT) COVID-19 rt-PCR Result Negative Negative 07/10/2021 13:51 EDT [facility] Comment: This test has not [...] testing. This test is based on the [facility] COVID-19 Emergency Use Authorization (EUA) assay, with minor modification as defined by the FDA Performed on the EV Connecto 7 Pro RT-PCR System. Performing Lab [facility] 07/10/2021 13:51 EDT [facility] Swab 07/08/2021 16:4 5 EDT 07/09/2021 15:41 EDT Provider Outr Resulting Lab MICROBIOLOGY - GENERAL ORDERABLES Performing Organization Address City/[facility] Co de Phone Number [facility] [address] [place] [address] documented in this encounter Visit Diagnoses Not on filedocumented in this encounter Care Teams Cardiopulmonary Technologist Relationship Specialty Start Date End Date Maximilian Fall MD PCP - General 03/18/16 documented as of this encounter
--- OUTSIDE RECORDS SUMMARY | 2024-07-27 13:35 | XMS_ITS | Encounter Summary ---
Author Organization [facility] Address [address] [place] [address] Care Team Providers Care Real Estate Processor Name Role Phone Maximilian Fall MD Primary Care Provider [phone] Encounter Details Date Type Department Care Team (Latest Contact Info) Description 09/04/2016 8:11 EDT - 09/04/2016 23:59 EDT Hospital Encounter [address] [address] Unknown, Provider, Discharge Disposition: Home or Self [...] in this encounter Care Teams Real Estate Processor Relationship Specialty Start Date End Date Maximilian Fall MD PCP - General 03/18/16 documented as of this encounter
--- OUTSIDE RECORDS SUMMARY | 2024-07-27 13:36 | XMS_ITS | Encounter Summary ---
Author Organization [facility] [place] [address] Care Team Providers Care Accounting Generalist Name Role Phone Deacon Watters APRN Primary Care Provider [phone] Encounter Details Date Type Department Care Team (Late st Contact Info) Description 06/29/2024 7:25 PM EDT Ancillary Procedure [place] [phone] Deacon Watters APRN [address] [place] [address] Social History Tobacco Use Types Packs/Day Years [...] 9:00 AM EDT Office [place] [id number] Dion Barlow MD [facility] [place] [address] 09/01/2024 9:40 AM EDT Office Visit Cardiology at [address] [place] [address] Franky Shaver MD [facility] [place] [address] 09/01/2024 11:20 AM EDT Office Visit Dermatology at [facility] [address] [place] [phone] Gómez Mercer MD [facility] [place] [address] 09/21/2024 2:45 PM EDT Office Visit [facility] at [facility] [place] [address] Trung Hoyos MD [facility] [place] [address] documented as of this encounter Procedures Procedure Name Priority Date/Time Associated Diagnosis Comments FILM LIBRARY STORAGE ONLY DX CHEST Routine 06/29/2024 7:22 PM EDT documented in this encounter Results * Film Library- Storage Only DX Chest (06/29/2024 7:22 PM EDT) Narrative [facility] - 06/29/2024 7:22 PM EDT This exam is auto-finalizing. It's purpose is for storage only. Deacon Watters APRN IMG FILM LIBRARY O RDERABLES [place], [place] documented in this encounter Visit Diagnoses Not on filedocumented in this encounter Care Teams Accounting Generalist Relationship Specialty Start Date End Date Deacon Watters APRN [address] [place] [address] PCP - General Family Medicine 02/17/22 documented as of this encounter
--- OUTSIDE RECORDS SUMMARY | 2024-07-27 13:36 | XMS_ITS | Encounter Summary ---
Author Organization [facility] [place] [address] Care Team Providers Care Advertising Sales Executive Name Role Phone Deacon Watters APRN Primary Care Provider [phone]- [phone] Reason for Visit * Auth/Cert (Routine) Specialty Diagnoses / Procedures Referred By Contac t Referred To Contact Diagnoses NSTEMI (non-ST elevated myocardial infarction) NSTEMI Triston Godinez MD [facility] [place] [address] [facility] Referral ID Status Reason Start Date Expiration Date Visits Re quested Visits Authorized [id number] 1 1 Encounter Details Date Type Department Care Team (Late st Contact Info) Description 07/01/2024 2:30 PM EDT - 07/01/2024 3:30 PM EDT [place] [address] Lizzette Hayden MD [facility] [place] [address] CARDIAC CATHETERIZATION Social History Tobacco Use Types Packs/Day Years Used Date Smoking Tobacco: Former Cigarettes 4 30 1 12/01/1961 - 10/01/1992 Smokeless Tobacco: Former Chew Comments:Denies vaping Alcohol Use Standard Drinks/Week Comments Yes 0 (1 standard drink = 0.6 oz pur e alcohol) twice a year [facility] Utilities Answer Date Recorded In the past 12 months has th e electric, gas, oil, or water [employer] threatened to shut off services in your [...] time in the past 12 m [facility], were you homeless or living [...] HLD, migraines, DM2, and UC who [facility] and was transferred to [facility] for NSTEMI found to have HFrEF. Course [...] He was discharged with 6 days of rsubdbyicrfcp318 mg BID after receiving 1 day of [...] Jardiance allergy. PCP Contact Information: Deacon Watters, FIRE ALARM TECHNICIAN [address] [facility] 1 / [facility] [address] Discharge Diagnoses (Hospital Problems) and Secondary Diagnoses [...] #HTN #HLD Mr. Rodriguez was transferred to [facility] for NSTEMI with trops of 4143 and 20,000 at the OSH, where he was loaded with ASA, plavix and started on heparin gtt. At [facility], his trops trended down to 1234. In [...] dose. 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 #GERD He takes [...] to exclude urinary tract infection. Cardiac Catheterization: ([facility]) RIGHT dominance LVEDP 10 Artery Lesion Intervention [...] 9:00 AM Dion Osullivan MD Gastroenterology at [facility] Arrive at: Architecture Consultant Area [phone] 09/01/2024 11:20 AM Gómez Mercer MD Dermatology at [facility] Arrive at: Architecture Consultant [address] [place] [address] 09/21/2024 2:45 PM Trung Hoyos MD Pain and Spine Center at [facility] Arrive at: Architecture Consultant Area [phone] Future Orders Complete By Expires Referral to Cardiac Rehab [[id number] Custom] As directed Process Instructions: If no progress note charted, please enter Clinical details in comments. Scheduling Instructions: Questions: My question or request is: NSTEMI, PCI, HFrEF- cardiac rehab at [facility] Referral to Cardiology [[id number] Custom] As directed Process Instructions: If no progress note charted, please enter Clinical details in comments. Scheduling Instructions: Questions: My question or request is: NEW PATIENT - hospital follow up for NSTEMI s/p PCI to LCx and new HFrEF, does not have appt on [employer] please call him with appt slot General [...] appointments: During 8am-5pm Thursday through Thursday call [phone] to speak with a nurse in the cardiology clinic All other times call [phone] and ask to speak to the environmental law professor manager of operations. Home oxygen therapy: none Arrangements for VNA/home care: none Follow up Appointments: Future Appointments Date Time Provider Department Center 08/15/2024 9:00 AM Dion Osullivan MD [facility] GASTRO [facility] 09/01/2024 11:20 AM Gómez Mercer MD [facility] 09/21/2024 2:45 PM Trung Hoyos MD [facility] Pain Sp [facility] Solution Design Engineer: [facility] - referral sent and they are aware you need an appointment. If they do not reach out to you with an appointment in 1 week, call and ask for the cardiology clinic. PCP: Deacon Watters APRN at [phone] on July 08 at 4 PM Your Inpatient Doctor(s) at [facility]: Armond Denny MD - Attending physician Your Primary Care Provider: Deacon Watters APRN [address] / [facility] [address] If you have non-emergent questions between now and the time of your follow up appointments: During 8am-5pm Thursday through Thursday call [phone] to speak with a nurse in the cardiology clinic All other times call [phone] and ask to speak to the environmental law professor manager of operations. Provider Contact Information: Deacon Watters APRN [address] [facility] 1 / [facility] [address] Discharge References/Attachments: Discharge References/Attachments None For questions regarding this document or issues relating to this hospitalization on the Medical Service, please contact your inpatient physician through the [facility] Business Instructor . Issues afterhours and on weekends will be handled by the Solution Design Engineer staff on-call. Signed: Ronel Hensley MD [...] appointments: During 8am-5pm Thursday through Thursday call [phone] to speak with a nurse in the cardiology clinic All other times call [phone] and ask to speak to the environmental law professor manager of operations. Home oxygen therapy: none Arrangements for VNA/home care: none Follow up Appointments: Future Appointments Date Time Provider Department Center 08/15/2024 9:00 AM Dion Osullivan MD [facility] GASTRO [facility] 09/01/2024 11:20 AM Gómez Mercer MD [facility] 09/21/2024 2:45 PM Trung Hoyos MD [facility] Pain Sp [facility] Solution Design Engineer: [facility] - referral sent and they are aware you need an appointment. If they do not reach out to you with an appointment in 1 week, call and ask for the cardiology clinic. PCP: Deacon Watters APRN at [phone] on July 08 at 4 PM Your Inpatient Doctor(s) at [facility]: Armond Denny MD - Attending physician Your Primary Care Provider: Deacon Watters APRN [address] [place] [address] If you have non-emergent questions between now and the time of your follow up appointments: During 8am-5pm Thursday through Thursday call [phone] to speak with a nurse in the cardiology clinic All other times call [phone] and ask to speak to the environmental law professor manager of operations. documented in this encounter Medications at Time [...] by mouth daily. 90 tablet 3 07/05/2024 sulfaSALAzine (Azulfidine) 500 mg tablet Take 3 [...] for 6 days. 12 tablet 07/04/2024 07/10/2024 ketoconazole (Nizoral) 2 % CreamIndications:Ti lillian cruris Apply twice daily to affected areas on the groin 30 g 1 06/07/2024 07/26/2024 documented as of this encounter Progress Notes * Qing Braxton, PT - 07/04/2024 10:15 AM EDT Physical Therapy evaluation Patient profile: Brian Rodriguez is a 74 y.o. male with PMHx of HTN, HLD, migraines, DM2, and UC whowas transferred to [facility] for NSTEMI and now found to have [...] 3.66) performed by Dion Osullivan MD at [facility] PRO COLONOSCOPY, BIOPSY N/A 02/22/2019 COLONOSCOPY FLEXIBLE, WITH BX (WRVU 3.66) performed by Dion Osullivan MD at [facility] PRO COLONOSCOPY, BIOPSY N/A 03/28/2022 COLONOSCOPY FLEXIBLE, WITH BX (WRVU 3.66) performed by Mona Turner MD at [facility] PRO COLONOSCOPY, BIOPSY N/A 01/20/2024 COLONOSCOPY FLEXIBLE, WITH BX (WRVU 3.56) performed by Anthony Hamlin MD at [facility] PRO COLONOSCOPY, DIAGNOSTIC 11/27/2011 COLONOSCOPY, DIAGNOSTIC performed by Dion OSULLIVAN at [facility] PRO COLONOSCOPY, DIAGNOSTIC 07/13/2014 COLONOSCOPY, DIAGNOSTIC performed by Dion Osullivan MD at [facility] PRO COLONOSCOPY, REMV LESN, SNARE N/A 02/22/2019 COLONOSCOPY, POLYPECTOMY, REMOVAL LESION BY SNARE (WRVU 4.67) performed by Dion Osullivan MD at [facility] PRO COLONOSCOPY, REMV LESN, SNARE N/A 02/26/2021 COLONOSCOPY, POLYPECTOMY, REMOVAL LESION BY SNARE (WRVU 4.67) performed by Dion Osullivan MD at [facility] PRO SIGMOIDOSCOPY, DIAGNOSTIC 03/16/2012 FLEXIBLE SIGMOIDOSCOPY performed by YUDI MALLOY at [facility] PRO UPPER GI ENDOSCOPY, DIAGNOSTIC N/A 04/28/2019 EGD, UPPER GI ENDOSCOPY performed by Iza Coates MD at [facility] UPPER GI ENDOSCOPY, EXAM 10/01/2012 UPPER GI ENDOSCOPY performed by Dion OSULLIVAN at [facility] Social History: Home set-up: Lives on the first floor of a two level home in [place], [place] Stairs: FOS with bilateral rails vs a few stairs through the back to the first level, 8 step between rooms Bathroom Set-up: Tub-shower with grab bars, no shower chair Baseline Mobility: Ambulates without an assistive device. Independent with I/ADLs, including driving. 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 He enjoys taking care of his property including [employer]. He sleeps in a flat bed. 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 male admitted on 06/30/2024 with PMHx of HTN, HLD, migraines, DM2, and UC who was transferred to [facility] for NSTEMI and now found to have HFrEF. Pt now s/p PCIto LCX. Past Medical History: Diagnosis Date Asthma 10/01/2011 Diabetes mellitus 10/01/2011 GERD (gastroesophageal reflux disease) 10/01/2011 Hearing loss 10/01/2011 Hydrocele 10/01/2011 Ulcerative colitis 10/01/2011 Past Surgical History: Procedure Laterality Date PRO COLONOSCOPY, BIOPSY N/A 02/12/2017 COLONOSCOPY FLEXIBLE, WITH BX (WRVU 3.66) performed by Dion Osullivan MD at [facility] PRO COLONOSCOPY, BIOPSY N/A 02/22/2019 COLONOSCOPY FLEXIBLE, WITH BX (WRVU 3.66) performed by Dion Osullivan MD at [facility] PRO COLONOSCOPY, BIOPSY N/A 03/28/2022 COLONOSCOPY FLEXIBLE, WITH BX (WRVU 3.66) performed by Mona Turner MD at [facility] PRO COLONOSCOPY, BIOPSY N/A 01/20/2024 COLONOSCOPY FLEXIBLE, WITH BX (WRVU 3.56) performed by Anthony Hamlin MD at [facility] PRO COLONOSCOPY, DIAGNOSTIC 11/27/2011 COLONOSCOPY, DIAGNOSTIC performed by Dion OSULLIVAN at [facility] PRO COLONOSCOPY, DIAGNOSTIC 07/13/2014 COLONOSCOPY, DIAGNOSTIC performed by Dion Osullivan MD at [facility] PRO COLONOSCOPY, REMV LESN, SNARE N/A 02/22/2019 COLONOSCOPY, POLYPECTOMY, REMOVAL LESION BY SNARE (WRVU 4.67) performed by Doin Osullivan MD at [facility] PRO COLONOSCOPY, REMV LESN, SNARE N/A 02/26/2021 COLONOSCOPY, POLYPECTOMY, REMOVAL LESION BY SNARE (WRVU 4.67) performed by Dion Osullivan MD at [facility] PRO SIGMOIDOSCOPY, DIAGNOSTIC 03/16/2012 FLEXIBLE SIGMOIDOSCOPY performed by YUDI MALLOY at [facility] PRO UPPER GI ENDOSCOPY, DIAGNOSTIC N/A 04/28/2019 EGD, UPPER GI ENDOSCOPY performed by Iza Coates MD at [facility] UPPER GI ENDOSCOPY, EXAM 10/01/2012 UPPER GI ENDOSCOPY performed by Dion OSULLIVAN at [facility] Social History: Home set-up: Lives on the first floor of a two level home in [place], [place] Stairs: FOS with bilateral rails vs a few stairs through the back to the first level, 8 step between rooms Bathroom Set-up: Tub-shower with grab bars, no shower chair Baseline Mobility: Ambulates without an assistive device. Independent with I/ADLs, including driving. 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 He enjoys taking care of his property including [place]. He sleeps in a flat bed. 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 Pager: [phone] Tray Bassett. WILLY LoganR/L Occupational Therapy Rehabilitation Department * Armond Denny MD - 07/03/2024 7:03 AM EDT Inpatient Cardiology Progress Note Patient Name: Brian Rodriguez Date of Admission: 06/30/2024 ( Hospital Day 3 days ) Service: S2 ID: Brian Rodriguez is a 74 y.o. male with PMHx of HTN, HLD, migraines, DM2, and UC [facility] to [facility] for NSTEMI found to have HFrEF. Active [...] 3.6 3.4* CL 105 104 106 CO2 25 BUN 15 13 10 CREATININE 1.25 1.18 1.02 No results for input(s): AST, ALT, ALKPHOS, BILITOT, BILIDIR in the last 168 hours. Recent Labs 07/03/24 0402 07/02/24 0712 06/30/24 2325 CALCIUM 9.2 8.8 9.2 MAGNESIUM 0.86 0.89 0.84 Last 3 ProBNP, Trop, CK Recent Labs 06/30/24 1809 PROBNP 2,259* Trops: OSH 4143 >20,000>> [facility] 1234 and 1274 06/30 Telemetry: some PVCs [...] to exclude urinary tract infection. Cardiac Catheterization: (C) RIGHT dominance LVEDP 10 Artery Lesion Intervention [...] DM2, and UC who was transferred to [facility] for NSTEMI and now found to have [...] 7.3. 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 - holding home glipizide and [...] Katia Reid MD Internal Medicine PGY-3 Pager [phone], M1-S2 Service CARDIOLOGY STAFF NOTE I have personally interviewed and examined the patient and reviewed appropriate data, including labs, ECGs and other diagnostic studies. I agree with the principal findings documented above. The assessment and plan were formulated in discussion with me. Armond Denny MD, [facility] Staff Solution Design Engineer django developer * Armond Denny MD - 07/02/2024 6:17 AM EDT Inpatient Cardiology Progress Note Patient Name: Brian Rodriguez Date of Admission: 06/30/2024 ( Hospital Day 2 days ) Service: S2 ID: Brian Rodriguez is a 74 y.o. male with PMHx of HTN, HLD, migraines, DM2, and UC [facility] and was transferred to [facility] for NSTEMI found to have HFrEF. Active [...] 1809 PROBNP 2,259* Trops: OSH 4143 >20,000>> [facility] 1234 and 1274 06/30 Telemetry: some PVCs [...] to exclude urinary tract infection. Cardiac Catheterization: ([facility]) RIGHT dominance LVEDP 10 Artery Lesion Intervention [...] DM2, and UC who was transferred to [facility] for NSTEMI and now found to have [...] 7.3. 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 I agree with the principal findings documented above. The assessment and plan were formulated in discussion with me. Armond Denny MD, [facility], [facility] Staff Solution Design Engineer django developer * Armond Denny MD - 07/01/2024 6:15 AM EDT Inpatient Cardiology Progress Note Patient Name: Brian Rodriguez Date of Admission: 06/30/2024 ( Hospital Day 1 day ) Service: S2 ID: Brian Rodriguez is a 74 y.o. male with PMHx of HTN, HLD, migraines, DM2, and UC who presented [facility] for chest pain and was transferred to [facility] for NSTEMI found to have HFrEF. Active Problems: Active Hospital Problems Diagnosis NSTEMI (non-ST elevated myocardial infarction) Resolved Hospital Problems No resolved problems to display. 24 hr events: Yesterday - transferred to [facility] for NSTEMI Overnight - no acute events [...] 1809 PROBNP 2,259* Trops: OSH 4143 >20,000>> [facility] 1234 and 1274 last night Telemetry: NSR [...] DM2, and UC who was transferred to [facility] for NSTEMI and now found to have [...] Ronel Hensley MD Internal Medicine PGY-1 Pager [phone], M1-S2 Service CARDIOLOGY STAFF NOTE I have personally interviewed and examined the patient and reviewed appropriate data, including labs, ECGs and other diagnostic studies. I agree with the principal findings documented above. The assessment and plan were formulated in discussion with me. Plan for cath today and introduction of full complement of medical therapies for ACS/HFrEF. Armond Denny MD, [facility], [facility] Staff Solution Design Engineer django developer documented in this encounter H&P Notes * Lynette Díazsera Woodard, FIRE ALARM TECHNICIAN - 07/01/2024 9:33 AM EDT Images [...] PCP: Deacon Watters APRN PCP phone #: [phone] ID/Chief Complaint: Brian Rodriguez is a 74 y.o. male with PMHx of HTN, HLD, migraines, DM2, and UC who presented to [facility] for chest pain and was transferred to [facility] for NSTEMI. History of Present Illness: Brian [...] infarction) Ulcerative colitis Colonoscopy 04/08/10 (Dr. Gomes [facility]) - inflammation only within the rectum and sigmoid; extent of the exam was to the hepatic flexure; biopsies proximal to the sigmoid nl Repeat exam 11/27/11 ([facility] [...] ascending colon. Several HPs and one TA. [place] 03/2022 - [place] 1 limited to rectosigmoid, [...] in the last 7068 hours. Invalid input(s): [id number] Heme: No results for input(s): LDH, HAPTOGLOBIN, [...] DM2, and UC who was transferred to [facility] for NSTEMI. Given Brian's presentation and his [...] Admit to Cardiology, S2 Team Pager # [phone] #NSTEMI > trops elevated to 4143 and 20,000 at OSH - s/p ASA and Plavix load - heparin gtt - continue 81 mg ASA - continue 75 mg plavix - repeat EKG with posterior leads - restarted atorvastatin 80 mg - TTE pending - trending trops here - NPO at midnight for [facility] tomorrow #Migraines - holding propranolol for now, [...] in an outpatient cardiac rehabilitation program at [facility] was discussed. Patient agrees to a referral [...] as Appropriate) * Plan of Care - Shae Shaver RN - 07/02/2024 10:46 PM EDT [...] Operative Note Patient Name: Brian Rodriguez : [id number] MR#: [id number] Case Date: 07/01/2024 Surgeon: Surgeons and Role: [...] 07/01/2024 12:11 PM EDT Brian completed a [place] Advanced directive and stated that if he [...] surrogate would be surrogate decision maker per [place] surrogate decision making law. (Only good for 180 days) Any patient receiving care in [place] must abide by [place] law. The hierarchy for surrogate decision making [...] (i) The agent with financial power of law researcher or a conservator appointed in accordance with [...] In the past 12 months has the [employer], gas, oil, or water [employer] threatened to shut off services in your [...] Current DME: none Home Address confirmed as: [address] [place] [id number] Social & Family Supports: All names listed below confirmed with patient as current and correct Extended Emergency Contact Information Primary Emergency Contact: Sabrina Eisenberg Address: [address] [place] [phone] [facility] Mobile Relation: Child Secondary Emergency Contact: [...] Type: *No Product type* / Secondary Insurance: [employer] ONLY if patient has Medicare A&B - Does this patient have secondary insurance?: Yes ; Prescription Coverage: Yes Preferred Pharmacy: [facility] [address] [address] [place] Status: Patient is a : No Primary Care Provider confirmed: Deacon Watters, FIRE ALARM TECHNICIAN [phone] Potential Needs for Transition of Care: none [...] EDT Office [place] [phone] Dion Osullivan MD [facility] [place] [address] 09/01/2024 9:40 AM EDT Office Visit Cardiology at [address] [phone] Franky Shaver MD [facility] [place] [address] 09/01/2024 11:20 AM EDT Office Visit Dermatology at [address] [phone] Gómez Mercer MD [facility] [address] [place] [address] 09/21/2024 2:45 PM EDT Office Visit [place] [phone] Trung Hoyos MD [facility] [place] [address] Scheduled Referrals Name Type Priority Associated Diagnoses [...] PM EDT URINALYSIS BEAKER MICROSCPIC REFLEX EXAM ([facility]) Routine 07/03/2024 3:02 PM EDT URINALYSIS MICROSCOPIC [...] - 199 mg/dL 07/04/2024 2:12 PM EDT [facility] Comment:Supplemental ranges: <140 mg/dL before meals <180 mg/dL all other times of the day. Blood CAPILLARY BLOOD / Unknown 07/04/2024 1:49 PM EDT 07/04/2024 2:12 PM EDT Armond Denny MD POINT OF CARE TEST Ozzie MIKE [facility] [place] [address] * (ABNORMAL) POC, GLUCOSE (07/04/2024 11:55 AM EDT) Glucometer, POC 287(H) 65 - 199 mg/dL 07/04/2024 11:55 AM EDT [facility] Comment:Supplemental ranges: <140 mg/dL before meals <180 mg/dL all other times of the day. Blood CAPILLARY BLOOD / Unknown 07/04/2024 11:55 AM EDT 07/04/2024 11:55 AM EDT Armond Denny MD POINT OF CARE TEST O RDERABLES Performing Organization Address [facility]/ZIP Co de Phone Number [facility] [place] [address] * (ABNORMAL) POC, GLUCOSE (07/04/2024 11:18 AM EDT) Glucometer, POC 259(H) 65 - 199 mg/dL 07/04/2024 11:32 AM EDT [facility] Comment:Supplemental ranges: <140 mg/dL before meals <180 mg/dL all other times of the day. Blood CAPILLARY BLOOD / Unknown 07/04/2024 11:18 AM EDT 07/04/2024 11:32 AM EDT Armond Denny MD POINT OF CARE TEST O RDERABLES Performing Organization Address [facility] Co de Phone Number [facility] [place] [address] * POC, GLUCOSE (07/04/2024 8:04 AM EDT) Glucometer, POC 111 65 - 199 mg/dL 07/04/2024 8:04 AM EDT [facility] Comment:Supplemental ranges: <140 mg/dL before meals <180 mg/dL all other times of the day. Blood CAPILLARY BLOOD / Unknown 07/04/2024 8:04 AM EDT 07/04/2024 8:04 AM EDT Armond Denny MD POINT OF CARE TEST O RDERABLES [facility] [place] [address] * Magnesium (07/04/2024 1:43 AM EDT) Magnesium 0.80 0.69 - 1.07 mMol/L 07/04/2024 2:23 AM EDT [facility] Blood VENOUS BLOOD SPECIMEN / Unknown IP Care Team Draw / Unknown 07/04/2024 1:43 AM EDT 07/04/2024 1:52 AM EDT Triston Godinez MD CHEMISTRY ORDERABLES [facility] [place] [address] * (ABNORMAL) Basic Metabolic Panel (07/04/2024 1:43 AM EDT) Glucose 156 65 - 199 mg/dL 07/04/2024 2:23 AM EDT [facility] Comment:Glucose Concentratio n >=200 mg/dL plus symptoms is consistent with Diabetes Mellitus. Blood Urea Nitrogen 12 10 - 20 mg/dL 07/04/2024 2:23 AM EDT [facility] Creatinine 1.27 0.80 - 1.50 [...] 8.5 - 10.5 mg/dL 07/04/2024 2:23 AM [facility] Est Glomerular [...] AM EDT Triston Godinez MD CHEMISTRY ORDERABLES [facility] [place] [address] * (ABNORMAL) CBC (with Diff) (07/04/2024 1:43 AM EDT) White Blood Cell 5.05 4.00 - 9.50 x10(3)/mc L 07/04/2024 2:00 AM EDT [facility] Red Blood Cell 3.11(L) 4.58 - 5.54 x10(6)/mc L 07/04/2024 2:00 AM [facility] Hemoglobin 10.5(L) 13.7 - [...] AM [facility] Neutrophil Absolute (ANC) - [...] Gran % 0.4 % 2:00 AM EDT [facility] Immature Gran Absolute 0.02 0.00 - 0.04 x10(3)/mc L 07/04/2024 2:00 AM EDT [facility] Blood VENOUS BLOOD SPECIMEN / Unknown IP Care Team Draw / Unknown 07/04/2024 1:43 AM EDT 07/04/2024 1:52 AM EDT Triston Godinez MD HEMATOLOGY ORDERABLE S Performing Organization Address City/[facility]/ZIP Co de Phone Number [facility] [place] [address] * (ABNORMAL) POC, GLUCOSE (07/03/2024 8:02 PM EDT) Glucometer, POC 251(H) 65 - 199 mg/dL 07/03/2024 8:02 PM EDT [facility] Comment:Supplemental ranges: <140 mg/dL before meals <180 mg/dL all other times of the day. Blood CAPILLARY BLOOD / Unknown 07/03/2024 8:02 PM EDT 07/03/2024 8:02 PM EDT Armond Denny MD POINT OF CARE TEST O RDERABLES Performing Organization Address City/[facility]/ZIP Co de Phone Number [facility] [place] [address] * (ABNORMAL) POC, GLUCOSE (07/03/2024 4:47 PM EDT) Glucometer, POC 217(H) 65 - 199 mg/dL 07/03/2024 4:47 PM EDT [facility] Comment:Supplemental ranges: <140 mg/dL before meals <180 mg/dL all other times of the day. Blood CAPILLARY BLOOD / Unknown 07/03/2024 4:47 PM EDT 07/03/2024 4:47 PM EDT Armond Denny MD POINT OF CARE TEST O RDERABLES Performing Organization Address City/[facility]/[place] [address] * (ABNORMAL) Urine culture (07/03/2024 3:02 PM EDT) Urine Culture 50,000-99,000 cfu/ml Escherichia coli(A) VITEK 2 METHOD 07/05/2024 8:01 AM EDT [facility] Urine Culture 10,000-49,000 cfu/ml mixed mucosal harika VITEK 2 METHOD 07/05/2024 8:01 AM EDT [facility] Urine URINE SPECIMEN OBTAINED BY [...] - GENER AL ORDERABLES Performing Organization Address City/[facility]/[place] [address] * (ABNORMAL) Urinalysis Microscopic Reflex to Culture (07/03/2024 3:02 PM EDT) RBC, Urine 2 0 - 3 /HPF 07/03/2024 3:40 PM EDT [facility] WBC, Urine 55(H) 0 - 3 /HPF 07/03/2024 3:40 PM EDT [facility] Squamous Epithelial Cells, Urine 1 0 - 5 /HPF 07/03/2024 3:40 PM EDT [facility] Hyaline Casts, Urine 3(H) 0 - 2 /LPF 07/03/2024 3:40 PM EDT [facility] Comment 07/03/2024 3:40 PM EDT [facility] Comment:Interpret results wi th caution, microscopic results are from a suboptimal specimen. Bacteria, Urine Many(A) None /HPF 3:40 PM EDT [facility] Urine URINE SPECIMEN OBTAINED BY CLEAN CATCH PROCEDURE / Unknown Non Blood Collection / Unknown 07/03/2024 3:02 PM EDT 07/03/2024 3:13 PM EDT Armond Denny MD URINE ORDERABLES Performing Organization Address [facility] Co de Phone Number [facility] [place] [address] * Urinalysis Microscopic with Reflex to Culture (07/03/2024 3:02 PM EDT) Urine URINE SPECIMEN OBTAINED BY CLEAN CATCH PROCEDURE / Unknown Non Blood Collection / Unknown 07/03/2024 3:02 PM EDT 07/03/2024 3:13 PM EDT Armond Denny MD URINE ORDERABLES Performing Organization Address [facility]/ZIP Co de Phone Number [facility] [place] [address] * (ABNORMAL) Urinalysis with reflex Culture (07/03/2024 3:02 PM EDT) Glucose, Urine Dipstick Negative Negative 07/03/2024 3:40 PM EDT [facility] Protein, Urine Dipstick 30 mg/dL(A) Negative 07/03/2024 3:40 PM EDT [facility] Bilirubin, Urine Dipstick Small(A) Negative 07/03/2024 3:40 PM EDT [facility] Comment:Clinical correlation required for positive Urine Bilirubin results as false positive may occur with some drugs and drug related products. If a false positive is suspected a serum total bilirubin should be considered if clinically indicated. Urobilinogen, Urine Dipstick Normal Normal, 0.2 mg/dL, 1.0 mg/dL 07/03/2024 3:40 PM EDT [facility] pH, Urine (dipstick) 5.5 5.0 - 8.0 07/03/2024 3:40 PM EDT [facility] Blood, Urine Dipstick Negative Negative 07/03/2024 3:40 PM EDT [facility] Ketone, Urine Dipstick Trace(A) Negative 07/03/2024 3:40 PM EDT [facility] Nitrite, Urine Dipstick Positive(A) Negative 07/03/2024 3:40 PM EDT [facility] Leukocytes, Urine Dipstick Moderate(A) Negative 07/03/2024 [facility] Specific [place] Urine Automated 1.024 1.005 - 1.030 07/03/2024 3:40 PM [facility] Appearance, Urine Dipstick Cloudy(A) Clear 07/03/2024 3:40 PM EDT [facility] Color, Urine Dipstick Dark Yellow Yellow, Dark Yellow 07/03/2024 3:40 PM [facility] Urine URINE SPECIMEN OBTAINED BY CLEAN CATCH PROCEDURE / Unknown Non Blood Collection / Unknown 07/03/2024 3:02 PM EDT 07/03/2024 3:13 PM EDT Armond Denny MD URINE ORDERABLES [facility] [place] [address] * POC, GLUCOSE (07/03/2024 11:21 AM EDT) Glucometer, POC 177 65 - 199 mg/dL 07/03/2024 11:21 AM EDT [facility] Comment:Supplemental ranges: <140 mg/dL before meals <180 mg/dL all other times of the day. Blood CAPILLARY BLOOD / Unknown 07/03/2024 11:21 AM EDT 07/03/2024 11:21 AM EDT Armond Denny MD POINT OF CARE TEST O CEE Performing Organization Address [facility] Co de Phone Number [facility] [place] [address] * POC, GLUCOSE (07/03/2024 7:24 AM EDT) Glucometer, POC 124 65 - 199 mg/dL 07/03/2024 7:24 AM EDT [facility] Comment:Supplemental ranges: <140 mg/dL before meals <180 mg/dL all other times of the day. Blood CAPILLARY BLOOD / Unknown 07/03/2024 7:24 AM EDT 07/03/2024 7:24 AM EDT Armond Denny MD POINT OF CARE TEST O CEE Performing Organization Address City/[facility]/ZIP Co de Phone Number [facility] [place] [address] * Magnesium (07/03/2024 4:02 AM EDT) Magnesium 0.86 0.69 - 1.07 mMol/L 07/03/2024 4:41 AM EDT [facility] Blood VENOUS BLOOD SPECIMEN / Unknown IP Care Team Draw / Unknown 07/03/2024 4:02 AM EDT 07/03/2024 4:07 AM EDT Triston Godinez MD CHEMISTRY ORDERABLES [facility] [place] [address] * Basic Metabolic Panel (07/03/2024 4:02 AM EDT) Glucose 146 65 - 199 mg/dL 07/03/2024 4:41 AM [facility] Comment:Glucose Concentratio n >=200 mg/dL plus symptoms is consistent with Diabetes Mellitus. Blood Urea Nitrogen 15 10 - 20 mg/dL 07/03/2024 4:41 AM [facility] Creatinine 1.25 0.80 - [...] AM EDT Triston Godinez MD CHEMISTRY ORDERABLES [facility] [place] [address] * (ABNORMAL) CBC (with Diff) (07/03/2024 4:02 AM EDT) White Blood Cell 5.90 4.00 - 9.50 x10(3)/mc L 07/03/2024 4:13 AM EDT [facility] Red Blood Cell 3.27(L) 4.58 - 5.54 x10(6)/mc L 07/03/2024 4:13 AM EDT [facility] Hemoglobin 11.0(L) 13.7 - 16.5 g/dL 07/03/2024 4:13 AM T [facility] Hematocrit 33.1(L) 40.5 - 48.5 % 07/03/2024 4:13 AM [facility] Mean Cell Volume 101.2(H) 82.9 - 93.1 fL 07/03/2024 4:13 AM [facility] Mean Cell Hemoglobin 33.6(H) 27.5 - 32.1 pg 07/03/2024 4:13 AM [facility] Mean Cell Hemoglobin Concentration 33.2 32.0 - 35.7 g/dL 07/03/2024 4:13 AM [facility] Platelet 156 145 - 357 x10(3)/mc L 07/03/2024 4:[facility] Mean Platelet Volume 11.3 7.6 - 12.9 fL 07/03/2024 4:13 AM [facility] RDW Standard Deviation 47.5(H) [...] AM [facility] Neutrophil Absolute (ANC) - Automated 4.13 1.70 - 6.10 x10(3)/mc L 07/03/2024 [...] Immature Gran % 0.3 % 4:13 AM EDT [facility] Immature Gran Absolute 0.02 0.00 - 0.04 x10(3)/mc L 07/03/2024 4:13 AM EDT [facility] Blood VENOUS BLOOD SPECIMEN / Unknown IP Care Team Draw / Unknown 07/03/2024 4:02 AM EDT 07/03/2024 4:07 AM EDT Triston Godinez MD HEMATOLOGY ORDERABLE S Performing Organization Address [facility]/ZIP Co de Phone Number [facility] [place] [address] * (ABNORMAL) POC, GLUCOSE (07/02/2024 8:45 PM EDT) Glucometer, POC 271(H) 65 - 199 mg/dL 07/02/2024 8:46 PM EDT [facility] Comment:Supplemental ranges: <140 mg/dL before meals <180 mg/dL all other times of the day. Blood CAPILLARY BLOOD / Unknown 07/02/2024 8:45 PM EDT 07/02/2024 8:46 PM EDT Armond Denny MD POINT OF CARE TEST O CEE Performing Organization Address [facility]/ZIP Co de Phone Number [facility] [place] [address] * (ABNORMAL) POC, GLUCOSE (07/02/2024 4:18 PM EDT) Glucometer, POC 213(H) 65 - 199 mg/dL 07/02/2024 4:19 PM EDT [facility] Comment:Supplemental ranges: <140 mg/dL before meals <180 mg/dL all other times of the day. Blood CAPILLARY BLOOD / Unknown 07/02/2024 4:18 PM EDT 07/02/2024 4:19 PM EDT Armond Denny MD POINT OF CARE TEST O RDERABLES Performing Organization Address [facility]/State/[facility] Co de Phone Number [facility] [place] [address] * (ABNORMAL) POC, GLUCOSE (07/02/2024 11:21 AM EDT) Glucometer, POC 234(H) 65 - 199 mg/dL 07/02/2024 11:21 AM EDT [facility] Comment:Supplemental ranges: <140 mg/dL before meals <180 mg/dL all other times of the day. Blood CAPILLARY BLOOD / Unknown 07/02/2024 11:21 AM EDT 07/02/2024 11:21 AM EDT Armond Denny MD POINT OF CARE TEST O RDERABLES Performing Organization Address [facility] Co de Phone Number [facility] [place] [address] * POC, GLUCOSE (07/02/2024 7:28 AM EDT) Glucometer, POC 171 65 - 199 mg/dL 07/02/2024 7:28 AM EDT [facility] Comment:Supplemental ranges: <140 mg/dL before meals <180 mg/dL all other times of the day. Blood CAPILLARY BLOOD / Unknown 07/02/2024 7:28 AM EDT 07/02/2024 7:28 AM EDT Armond Denny MD POINT OF CARE TEST O RDERABLES Performing Organization Address City/[facility]/ZIP Co de Phone Number [facility] [place] [address] * Magnesium (07/02/2024 7:12 AM EDT) Magnesium 0.89 0.69 - 1.07 mMol/L 07/02/2024 8:09 AM EDT [facility] Blood VENOUS BLOOD SPECIMEN / Unknown IP Care Team Draw / Unknown 07/02/2024 7:12 AM EDT 07/02/2024 7:19 AM EDT Triston Godinez MD CHEMISTRY ORDERABLES [facility] [place] [address] * Basic Metabolic Panel (07/02/2024 7:12 AM EDT) Glucose 161 65 - 199 mg/dL 07/02/2024 8:09 AM [facility] Comment:Glucose Concentratio [...] AM EDT Triston Godinez MD CHEMISTRY ORDERABLES [facility] [place] [address] * (ABNORMAL) CBC (with Diff) (07/02/2024 7:12 AM EDT) White Blood Cell 5.99 4.00 - 9.50 x10(3)/mc L 07/02/2024 7:41 AM [facility] Red Blood Cell 3.36(L) 4.58 - 5.54 x10(6)/mc L 07/02/2024 7:41 AM [facility] Hemoglobin 11.3(L) 13.7 - [...] AM [facility] Neutrophil Absolute (ANC) - Automated 4.50 1.70 - 6.10 x10(3)/mc L 07/02/2024 [...] Immature Gran % 0.3 % 7:41 AM EDT [facility] Immature Gran Absolute 0.02 0.00 - 0.04 x10(3)/mc L 07/02/2024 7:41 AM EDT [facility] Blood VENOUS BLOOD SPECIMEN / Unknown IP Care Team Draw / Unknown 07/02/2024 7:12 AM EDT 07/02/2024 7:19 AM EDT Triston Godinez MD HEMATOLOGY ORDERABLE S [facility] [place] [address] * CT Abdomen & Pelvis w Contrast (07/02/2024 3:13 AM EDT) [employer] WORKSTATION ID [id number] RAD Anatomical Region Laterality Modality Abdomen, Pelvis [...] who have questions please contact the health managed care director that requested your imaging first. ? Narrative [...] patients who have questions please contactthe health managed care director that requested your imaging first. Electronically signed by: Gutierrez Hamilton MD, [facility]([phone]), at 07/02/2024 9:20 AM Triston Godinez MD IMG CT ORDERABLES * POC, GLUCOSE (07/01/2024 7:58 PM EDT) Glucometer, POC 84 65 - 199 mg/dL 07/01/2024 7:59 PM EDT [facility] Comment:Supplemental ranges: <140 mg/dL before meals <180 mg/dL all other times of the day. Blood CAPILLARY BLOOD / Unknown 07/01/2024 7:58 PM EDT 07/01/2024 7:59 PM EDT Armond Denny MD POINT OF CARE TEST O CEE Performing Organization Address [facility] Co de Phone Number [facility] [place] [address] * POC, GLUCOSE (07/01/2024 6:41 PM EDT) Glucometer, POC 91 65 - 199 mg/dL 07/01/2024 6:41 PM EDT [facility] Comment:Supplemental ranges: <140 mg/dL before meals <180 mg/dL all other times of the day. Blood CAPILLARY BLOOD / Unknown 07/01/2024 6:41 PM EDT 07/01/2024 6:41 PM EDT Armond Denny MD POINT OF CARE TEST O CEE Performing Organization Address [facility] Co de Phone Number [facility] [place] [address] * EKG 12 Lead (07/01/2024 5:24 PM EDT) Ventricular rate 77 BPM MUSE SYSTEM Atrial Rate 77 BPM MUSE SYSTEM P-R Interval 178 ms MUSE SYSTEM QRS Duration 138 ms MUSE SYSTEM Q-T Interval 418 ms MUSE SYSTEM QTC Calculated (Bezet) 473 ms MUSE SYSTEM Calculated P [place] 63 degrees MUSE SYSTEM Calculated R [place] 87 degrees MUSE SYSTEM Calculated T [place] 8 degrees MUSE SYSTEM INTERPRETATION Normal sinus rhythm Right bundle branch block Cannot rule out Inferior infarct , age undetermined Abnormal ECG When compared with ECG of 30-JUN-2024 17:23, Right bundle branch block is now Present Criteria for Septal infarct are no longer Present Confirmed by MD Melo Katharine ([id number]) on 07/03/2024 2:47:21 PM MUSE SYSTEM 07/01/2024 5:24 PM EDT 07/03/2024 2:47 PM EDT Lizzette Hayden MD ECG ORDERABLES MUSE SYSTEM * CARDIAC CATHETERIZATION (07/01/2024 5:00 PM EDT) Anatomical Region Laterality Modality Other Narrative 07/01/2024 7:47 PM EDT ?[facility] ? Cardiac Catheterization/Intervention Report ? Patient Name: Brian Rodriguez. ? Procedure Date: 07/01/2024 ? A #: [id number] ? Primary Physician: Mogadam, Emad ? Case #: [id number] ? File Name: [id number] ? Catheterization Order Number: [id number] ? [facility] ? Final Report [place], [place] ? Patient Name: ? Brian M. Rodriguez ?ID#: ?[id number] ? : ?1950 ? Procedure Date: ? July 01, 2024 ? Case #: ? [id number] ? Room: ? 5 ? Case Physician: ? Emad Mogadam, M.D. ? Start: ?15:10 ?Fellow: ? Waqar Vega [...] procedure was Urgent. The indication for ?the labels molder visit is ACS less than or equal [...] ? A premounted 2.75 x 22 mm [place] Red Willow (EILEEN) was deployed ? with a maximum [...] dose administered prior to arrival in the labels molder. ?Recommended anti-platelet/anti-thrombotic regimen: ?Continue aspirin 81 mg daily. ?Continue clopidogrel 75 mg daily. ?These recommendations are made at the time of the intervention. Patient ?and provider preferences or a changing clinical situation may require ?modification of this regimen. Consult [facility] Inter[facility] for ?questions. ?This patient has [...] against any medical treatment. Consult ?http://tools.acc.org/DAPTriskapp/#!/content/calculator/ or [facility] ?Interventional Cardiology for questions ? Conclusions: ?* [...] - 07/14/2024 [facility] Cardiac Catheterization/Intervention Report Patient Name: Brian Rodriguez Procedure Date: 07/01/2024 A #: [id number] Primary Physician: Lizzette Hayden Case #: [id number] File Name: [id number] Catheterization Order Number: [id number] [facility] FinalReport [place], [place] Patient Name: Brian Rodriguez ID#:[id number] :1950 Procedure Date: July 01, 2024 Case [...] patient was designated as ASA Class III. [facility] is 4: Vulnerable. Diagnostic Tests: Medications Prior to Procedure: Aspirin, Angiotensin II Receptor Leo and Statin. Indications for Diagnostic Cath: The priority of the diagnostic procedure was Urgent. The indicationfor the labels molder visit is ACS less than or equal [...] time was 37.0 minutes, dose area product [id number] Gy/cm2 and air kerma was 1,874 mGY. [...] The lesion was predilated with a 2.50mm [id number] MM balloon with a maximum inflation pressure of 14atmospheres. A premounted 2.75 x 22 mm [place] Red Willow (EILEEN) wasdeployed with a maximum inflation pressure [...] dose administered prior to arrival in the labels molder. Recommended anti-platelet/anti-thrombotic regimen: Continue aspirin 81 mg daily. Continue clopidogrel 75 mg daily. These recommendations are made at the time of the intervention.Patient and provider preferences or a changing clinical situation mayrequire modification of this regimen. Consult [facility] Interventional Cardiologyfor questions. This patient has a [...] or against any medical treatment.Consult http://tools.acc.org/DAPTriskapp/#!/content/calculator/ or [facility] Interventional Cardiology for questions Conclusions: * One [...] * POC, GLUCOSE (07/01/2024 11:35 AM EDT) [facility] Glucometer, POC 126 65 - 199 mg/dL 07/01/2024 11:35 AM EDT [facility] Comment:Supplemental ranges: <140 mg/dL before meals <180 mg/dL all other times of the day. Blood CAPILLARY BLOOD / Unknown 07/01/2024 11:35 AM EDT 07/01/2024 11:35 AM EDT Armond Denny MD POINT OF CARE TEST O RDERABLES [facility] [place] [address] * (ABNORMAL) Hemogram (07/01/2024 10:32 AM EDT) [...] ORDERABLE S Performing Organization Address [facility] Co de Phone Number [facility] [place] [address] * Heparin (unfractionated) Level (07/01/2024 10:32 AM EDT) Pathologist [facility] UF Heparin 0.31 IU/mL 07/01/2024 11:25 AM EDT [facility] Comment: Heparin (anti-Xa) levels should [...] ORDERABLE S Performing Organization Address [facility]/ZIP Co de Phone Number [facility] [place] [address] * POC, GLUCOSE (07/01/2024 7:18 AM EDT) Pathologist [facility] Glucometer, POC 105 65 - 199 mg/dL 07/01/2024 7:19 AM EDT [facility] Comment:Supplemental ranges: <140 mg/dL before meals <180 mg/dL all other times of the day. Blood CAPILLARY BLOOD / Unknown 07/01/2024 7:18 AM EDT 07/01/2024 7:19 AM EDT Triston Godinez MD POINT OF CARE TEST O RDERABLES Performing Organization Address [facility] Co de Phone Number [facility] [place] [address] * Heparin (unfractionated) Level (07/01/2024 3:15 AM EDT) UF Heparin 0.36 IU/mL 07/01/2024 4:23 AM EDT [facility] Comment: Heparin (anti-Xa) levels should [...] ORDERABLE S Performing Organization Address [facility]/ZIP Co de Phone Number [facility] [place] [address] * (ABNORMAL) CBC (with Diff) (07/01/2024 3:15 [...] AM [facility] Neutrophil Absolute (ANC) - Automated 3.87 1.70 - 6.10 x10(3)/mc L 07/01/2024 3:54 AM EDT [facility] Lymph % 20.4 % 07/01/2024 3:54 AM EDT [facility] Lymph Absolute 1.19 0.90 - 3.20 x10(3)/mc L 07/01/2024 3:54 AM EDT [facility] Monocyte % 9.6 % 07/01/2024 3:54 AM EDT [facility] Monocyte Absolute 0.56 0.30 - 0.90 x10(3)/mc L 07/01/2024 3:54 AM EDT [facility] Eos % 2.6 % 07/01/2024 3:54 AM EDT [facility] Eos Absolute 0.15 0.00 - 0.40 x10(3)/mc L 07/01/2024 3:54 AM EDT [facility] Basophil % 0.5 % 07/01/2024 3:54 AM EDT [facility] Baso Absolute 0.03 0.00 - 0.10 x10(3)/mc L 07/01/2024 3:54 AM EDT [facility] Immature Gran % 0.3 % 3:54 AM EDT [facility] Immature Gran Absolute 0.02 0.00 - 0.04 x10(3)/mc L 07/01/2024 3:54 AM EDT [facility] Blood VENOUS BLOOD SPECIMEN / Unknown IP Care Team Draw / Unknown 07/01/2024 3:15 AM EDT 07/01/2024 3:37 AM EDT Triston Godinez MD HEMATOLOGY ORDERABLE S [facility] [place] [address] * Magnesium (06/30/2024 11:25 PM EDT) Magnesium 0.84 0.69 - 1.07 mMol/L 07/01/2024 12:14 AM [facility] Blood VENOUS BLOOD SPECIMEN / Unknown IP Care Team Draw / Unknown 06/30/2024 11:25 PM EDT 06/30/2024 11:47 PM EDT Triston Godinez MD CHEMISTRY ORDERABLES [facility] [place] [address] * (ABNORMAL) Basic Metabolic Panel (06/30/2024 11:25 [...] Foundation Fasting Status 07/01/2024 12:14 AM EDT [facility] Blood VENOUS BLOOD SPECIMEN / Unknown IP Care Team Draw / Unknown 06/30/2024 11:25 PM EDT 06/30/2024 11:47 PM EDT Triston Godinez MD CHEMISTRY ORDERABLES Performing Organization Address City/State/[facility] Co de Phone Number [facility] [place] [address] * (ABNORMAL) Troponin-T, Yuriy Sensitivity 3 Hour (06/30/2024 11:25 PM EDT) [facility] Troponin-T, High Sensitivity 1,274(H) <=22 ng/L 07/01/2024 12:14 AM EDT [facility] Comment: This patient's troponin T [...] value can be found in the [facility] Test Catalog Troponin - https://one-.testcatalog.org/catalogs/565/files/64992 Reference: Fourth Counselor Definition of Myocardial Infarction. Journal of the [place] [employer] 2018;72:9217-8175 Troponin-T, HS 3 hr delta 65 ng/L 07/01/2024 12:14 AM EDT [facility] Comment:The 3 hour Troponin T delta value is the absolute difference between the Troponin T concentrations of the initial and subsequent sample collected between 2 h: 45 min and 6 h following the initial collection Blood VENOUS BLOOD SPECIMEN / Unknown IP Care Team Draw / Unknown 06/30/2024 11:25 PM EDT 06/30/2024 11:47 PM EDT Triston Godinez MD CHEMISTRY ORDERABLES [facility] [place] [address] * (ABNORMAL) Troponin-T, High Sensitivity 1 Hour (06/30/2024 8:22 PM EDT) [facility] Troponin-T, High Sensitivity 1,234(H) <=22 ng/L 06/30/2024 9:22 PM EDT [facility] Comment: This patient's troponin T [...] value can be found in the [facility] Test Catalog Troponin - https://[facility].testcatalog.org/catalogs/565/files/06045 Reference: Fourth Counselor Definition of Myocardial Infarction. Journal of the [place] [employer] 2018;72:9401-7351 Troponin-T, HS 1 hr delta 06/30/2024 9:22 PM EDT [facility] Comment:Delta troponin value not calculated, sample collected outside of delta calculation time limit. Blood VENOUS BLOOD SPECIMEN / Unknown Venipuncture / Unknown 06/30/2024 8:22 PM EDT 06/30/2024 8:40 PM EDT Triston Godinez MD CHEMISTRY ORDERABLES Performing Organization Address City/[facility]/ZIP Co de Phone Number [facility] [place] [address] * POC, GLUCOSE (06/30/2024 7:56 PM EDT) Glucometer, POC 144 65 - 199 mg/dL 06/30/2024 7:57 PM EDT [facility] Comment:Supplemental ranges: <140 mg/dL before meals <180 mg/dL all other times of the day. Blood CAPILLARY BLOOD / Unknown 06/30/2024 7:56 PM EDT 06/30/2024 7:57 PM EDT Triston Godinez MD POINT OF CARE TEST O RDERABLES Performing Organization Address City/[facility]/ZIP Co de Phone Number [facility] [place] [address] * XR Abdomen Flat & Upright (06/30/2024 6:56 PM EDT) WORKSTATION ID [id number] DH RAD Anatomical Region Laterality Modality Abdomen N/A Digital Radiogra phy Impressions 06/30/2024 9:12 PM EDT No obstruction or perforation. Thank you for letting us participate in the care of this patient. ??If you are a health care provider and have any questions regarding this report, please contact the number below. ??For patients who have questions please contact the health managed care director that requested your imaging first. ? Narrative [...] patients who have questions please contactthe health managed care director that requested your imaging first. Triston Godinez MD IMG DX ORDERABLES * (ABNORMAL) Troponin-T, High Sensitivity (06/30/2024 6:09 PM EDT) Troponin-T, High Sensitivity Initial 1,209(HHH ) <=22 ng/L 06/30/2024 7:23 PM EDT [facility] Comment: This patient's troponin T [...] value can be found in the [facility] Test Catalog Troponin - https://one-.testcatalog.org/catalogs/565/files/37192 Reference: Fourth Counselor Definition of Myocardial Infarction. Journal of the [place] [employer]iology 2018;72:5971-4558 Blood VENOUS BLOOD SPECIMEN / Unknown Venipuncture / Unknown 06/30/2024 6:09 PM EDT 06/30/2024 6:18 PM EDT Triston Godinez MD CHEMISTRY ORDERABLES [facility] [place] [address] * (ABNORMAL) Basic Metabolic Panel (06/30/2024 6:09 [...] PM EDT Triston Godinez MD CHEMISTRY ORDERABLES [facility] [place] [address] * Lipid Panel (Reflex Direct LDL) (06/30/2024 6:09 PM EDT) Cholesterol, Total 197 mg/dL 06/30/2024 6:51 PM EDT [facility] Comment: Desirable: < 200 mg/dL Borderline High: 200 - 239 mg/dL High: > or = 240 mg/dL Triglyceride 230 mg/dL 06/30/2024 6:51 PM EDT [facility] Comment: Normal: <150 mg/dL Borderline High: 150-199 mg/dL High: 200-499 mg/dL Very High: > or =500 mg/dL HDL Cholesterol 36 mg/dL 6:51 PM EDT [facility] Comment:Males: High Risk: <4 0 mg/dL LDL Cholesterol 120 mg/dL 6:51 PM EDT [facility] Comment: Desirable: <100 mg/dL Above Desirable: 100-129 mg/dL Borderline High: 130-159 mg/dL High: 160-189 mg/dL Very High: > or =190 mg/dL Note: LDL calculation updated to the NIH LDL formula as of 06/26/2024 Non-HDL Cholesterol 161 mg/dL 06/30/2024 6:51 PM EDT [facility] Comment: Desirable: <130 mg/dL Above Desirable: 130-159 mg/dL Borderline High: 160-189 mg/dL High: 190-219 mg/dL Very High: > or = 220 mg/dL Blood VENOUS BLOOD SPECIMEN / Unknown Venipuncture / Unknown 06/30/2024 6:09 PM EDT 06/30/2024 6:18 PM EDT [facility] - 06/30/2024 6:51 PM EDT It [...] ACC/AHA Guidelines (most recently Brianne et al. [facility] 08/26/22): * For individuals with [...] Godinez MD CHEMISTRY ORDERABLES Performing Organization Address [facility] Co de Phone Number [facility] [place] [address] * (ABNORMAL) pro-Brain Natriuretic Peptide (06/30/2024 6:09 PM EDT) NT-proBNP 2,259(H) <=449 pg/mL 06/30/2024 6:51 PM EDT [facility] Blood VENOUS BLOOD SPECIMEN / Unknown Venipuncture / Unknown 06/30/2024 6:09 PM EDT 06/30/2024 6:18 PM EDT Triston Godinez MD CHEMISTRY ORDERABLES Performing Organization Address [facility] Co de Phone Number [facility] [place] [address] * TSH (06/30/2024 6:09 PM EDT) Thyroid Stimulating Hormone 2.80 0.27 - 4.20 mcIU/mL 06/30/2024 6:51 PM EDT [facility] Blood VENOUS BLOOD SPECIMEN / Unknown Venipuncture / Unknown 06/30/2024 6:09 PM EDT 06/30/2024 6:18 PM EDT Triston Godinez MD CHEMISTRY ORDERABLES Performing Organization Address [facility] Co de Phone Number [facility] [place] [address] * Heparin (unfractionated) Level (06/30/2024 6:08 PM EDT) UF Heparin 0.07 IU/mL 06/30/2024 6:34 PM EDT [facility] Comment: Heparin (anti-Xa) levels should [...] City/State/[facility] Co de Phone Number [facility] [place] [address] * (ABNORMAL) CBC (with Diff) (06/30/2024 6:08 PM EDT) White Blood Cell 6.45 4.00 - 9.50 x10(3)/mc L 06/30/2024 6:36 PM EDT [facility] Red Blood Cell 3.78(L) 4.58 - 5.54 x10(6)/mc L 06/30/2024 6:36 PM EDT [facility] Hemoglobin 12.7(L) 13.7 - 16.5 g/dL 06/30/2024 6:36 PM EDT [facility] Hematocrit 38.0(L) 40.5 - 48.5 % 06/30/2024 6:36 PM EDT [facility] Mean Cell Volume 100.5(H) 82.9 - 93.1 fL 06/30/2024 6:36 PM EDT [facility] Mean Cell Hemoglobin 33.6(H) 27.5 - 32.1 pg 06/30/2024 6:36 PM [facility] Mean Cell Hemoglobin Concentration 33.4 32.0 - 35.7 g/dL 06/30/2024 6:36 PM [facility] Platelet 79(L) 145 - [...] PM [facility] Neutrophil Absolute (ANC) - Automated 4.59 1.70 - 6.10 x10(3)/mc L 06/30/2024 6:36 PM [facility] Lymph % 18.1 % 06/30/2024 6:36 PM [facility] Lymph Absolute 1.17 0.90 - 3.20 x10(3)/mc L 06/30/2024 6:36 PM [facility] Monocyte % 8.2 % 06/30/2024 6:36 PM [facility] Monocyte Absolute 0.53 0.30 - 0.90 x10(3)/mc L 06/30/2024 6:36 PM [facility] Eos % 1.7 % 06/30/2024 6:36 PM [facility] Eos Absolute 0.11 0.00 - 0.40 x10(3)/mc L 06/30/2024 6:36 PM EDT [facility] Basophil % 0.6 % 06/30/2024 6:36 PM EDT [facility] Baso Absolute 0.04 0.00 - 0.10 x10(3)/mc L 06/30/2024 6:36 PM EDT [facility] Immature Gran % 0.2 % 6:36 PM EDT [facility] Immature Gran Absolute 0.01 0.00 - 0.04 x10(3)/mc L 06/30/2024 6:36 PM EDT [facility] Blood VENOUS BLOOD SPECIMEN / Unknown Venipuncture / Unknown 06/30/2024 6:08 PM EDT 06/30/2024 6:18 PM EDT Triston Godinez MD HEMATOLOGY ORDERABLE S [facility] [place] [address] * (ABNORMAL) Hemoglobin A1c (06/30/2024 6:08 PM EDT) Hemoglobin A1c 7.3(H) 4.3 - 5.6 % 06/30/2024 9:03 PM EDT [facility] Comment: Per ADA guidelines, without [...] Estimated Average Glucose 06/30/2024 9:03 PM EDT [facility] Comment:Not Calculated. Blood VENOUS BLOOD SPECIMEN / Unknown Venipuncture / Unknown 06/30/2024 6:08 PM EDT 06/30/2024 6:18 PM EDT Narrative [facility] - 06/30/2024 9:03 PM EDT Estimated average glucose (eAG) is calculated from the equation described in: John ELLISON, Inna J, Nic R, et al. ??Translating the A1C assay into estimated average glucose values. ??Diabetes Care 2008:31(8):7365-5526. Additional resources are available on the ADA website (diabetes.org). Triston Godinez MD CHEMISTRY ORDERABLES Performing Organization Address [facility] Co de Phone Number [facility] [place] [address] * POC, GLUCOSE (06/30/2024 5:58 PM EDT) Glucometer, POC 148 65 - 199 mg/dL 06/30/2024 5:58 PM EDT [facility] Comment:Supplemental ranges: <140 mg/dL before meals <180 mg/dL all other times of the day. Blood CAPILLARY BLOOD / Unknown 06/30/2024 5:58 PM EDT 06/30/2024 5:58 PM EDT Triston Godinez MD POINT OF CARE TEST O RDERABLES Performing Organization Address [facility] Co de Phone Number [facility] [place] [address] * EKG 12 Lead (06/30/2024 5:23 PM EDT) Ventricular rate 73 BPM MUSE SYSTEM Atrial Rate 300 BPM MUSE SYSTEM QRS Duration 72 ms MUSE SYSTEM Q-T Interval 404 ms MUSE SYSTEM QTC Calculated (Bezet) 445 ms MUSE SYSTEM Calculated P [place] 71 degrees MUSE SYSTEM Calculated R [place] 65 degrees MUSE SYSTEM Calculated T [place] 30 degrees MUSE SYSTEM INTERPRETATION Normal sinus [...] 9:26 PM EDT ? Version: 1 Name: SHANT BRIAN Joya ?Study Date: 06/30/2024, 4: 39 PM ?BP: 137 / 78 mmHg ?Patient Location: L3WB^374^A : 1950 (MM/DD/YYYY) ? Height: 193 cm ? Age: 74 Years ? Weight: 113 kg Gender: Male ?BSA: 2.43 m?? Ordering Physician: TRISTON GODINEZ Referring Physician: KENJI THOMAS Performed By: Carol Villarreal Reason For Study: NSTEMI (non-ST elevation myocardial infarction) Exam Location: [facility]. ? Conclusions -Left ventricular systolic function is moderately reduced. The left ventricular ejection fraction is 36% by Dowd's biplane. The anterolateral and inferolateral barahona are akinetic. The anterior wall is hypokinetic. -Right ventricle is mildly dilated. Systolic function is normal. -No significant valve disease. -See report for additional findings. No prior study is available. Procedure Complete-[id number]. Image enhancement Optison was used for left [...] elevation myocardial infarction) Exam Location: [facility]. Conclusions -Left ventricular systolic function is moderately reduced. The leftventricular ejection fraction is 36% by Dowd's biplane. The anterolateral andinferolateral barahona are akinetic. The anterior wall is hypokinetic. -Right ventricle is mildly dilated. Systolic function is normal. -No significant valve disease. -See report for additional findings. No prior study is available. Procedure Complete-[id number]. Image enhancement Optison was used for left [...] (Bezet) 460 ms MUSE SYSTEM Calculated P [place]am[place] 69 degrees MUSE SYSTEM Calculated R [place]amois 78 degrees MUSE SYSTEM Calculated T [place]am[place] 39 degrees MUSE SYSTEM INTERPRETATION Sinus rhythm [...] 12.5 mg, Oral, DAILY, First dose on 07/02/24 at 1030, Until Discontinued, DO NOT SPLIT, [...] RONY) 0836 (Given - Provider: Jenny Reddy, RONY) cefTRIAXone (Rocephin) 1 g vial attach to sodium chloride 0.9% 50 mL Mini-Bag Plus (CANCELED) 1 g, Intravenous, EVERY 24 HOURS, 5 doses, First dose on Thu07/03/24 at 1730, Last dose on Thu07/07/24 at 1730, Administer over 30 Minutes, Indication for (Active or Suspected): Urinary Tract/Pyelonephritis 172 (New Bag - Provider: Jenny Reddy RN)1759 [...] 08 (Given - Provider: Jenny Reddy RN) 08 (Given - Provider: Jenny Reddy RN) enoxaparin [...] 08 (Given - Provider: Jenny Reddy RN) 08 (Given - Provider: Jenny Reddy, RONY) insulin glargine-ygfn (Semglee) (100 unit/mL) subcutaneous injection vial 70 Units 70 Units, Subcutaneous, NIGHTLY, First dose on Thu06/30/24 at 2100, Until Discontinued, Routine 2045 (Given - Provider: Shea Shaver RN) 2010 (Given - Provider: Shea Shaver [...] parameters not met)1155 (Given - Provider: Jenny Reddy, RONY) iohexoL (Omnipaque) radiology oral prep (50 mL [...] Reddy RN) 0900 (Given - Provider: Jenny Reddy RN) magnesium sulfate 2 g in sterile [...] on 07/03/24 at 1200, Last dose on 07/04/24 at [...] 40 mEq, Oral, ONCE, 1 dose, On 07/03/24 at 0730, potassium chloride ER particle/crystal [...] Shaver RN) 08 (Given - Provider: Jenny Reddy, RONY)2011 (Given - Provider: Shea Shaver RN) 0837 (Given - Provider: Jenny Reddy, RONY) spironolactone (Aldactone) tablet 12.5 mg 12.5 mg, Oral, DAILY, First dose on 07/02/24 at 1030, Until Discontinued, DO NOT SPLIT, CRUSH OR OPEN, Routine 1118 (Given - Provider: Sujata Duncan RN) 0824 (Given - Provider: Jenny Reddy RN) 0835 (Given - Provider: Jenny Reddy RN) sulfaSALAzine (Azulfidine) tablet 1,500 mg 1,500 mg, Oral, 2 TIMES DAILY, First dose on Thu07/01/24 at 0300, Until Discontinued, Routine 0350 (Given - Provider: Shea Shaver RN)1621 (Given - Provider: Sujata Duncan, RN) 0338 (Given - Provider: Shea Shaver RN)1527 (Given - Provider: Jenny Reddy RN) 0316 (Given - Provider: Shea Shaver RN)1500 (Due - Provider: Iram De Jesus [facility]) tamsulosin (Flomax) capsule 0.8 mg [...] Subcutaneous, ONCE PRN, 1 dose, Starting on Thu06/30/24 at 1558, Until Thu07/04/24 at 1725, for [...] Routine documented in this encounter Care Teams Advertising Sales Executive Relationship Specialty Start Date End Date Deacon Watters APRN [address] [place] [address] PCP - General Family Medicine 02/17/22 documented as of this encounter
--- OUTSIDE RECORDS SUMMARY | 2024-07-27 13:36 | XMS_ITS | Encounter Summary ---
Author Organization [facility] Address [facility] [place] [address] Care Team Providers Care Supervisor [employer] Name Role Phone Deacon Watters APRN Primary Care Provider [phone] Reason for Visit * Reason Comments Medication Refill Encounter Details Date Type Department Care Team (Late st Contact Info) Description 07/01/2024 [place] [address] Dion Barlow MD [facility] [place] [address] Social History Tobacco Use Types Packs/Day Years Used Date Smoking Tobacco: Former Cigarettes 4 30 1 12/01/1961 - 10/01/1992 Smokeless Tobacco: Former Chew Comments:Denies vaping Alcohol Use Standard Drinks/Week Comments Yes 0 (1 standard drink = 0.6 oz pur e alcohol) twice a year [facility] Utilities Answer Date Recorded In the past 12 months has e [employer], gas, oil, or water [employer] threatened to shut off services in your [...] you homeless or living in a senior care (including now)? No 07/01/2024 IPV Inpatient Questions [...] 9:00 AM EDT Office [place] [address] Dion Barlow MD [facility] [place] [address] 09/01/2024 9:40 AM EDT Office Visit Cardiology at [address] [phone] Franky Shaver MD [facility] [place] [address] 09/01/2024 11:20 AM EDT Office Visit Dermatology at [facility] [address] [place] [phone] Gómez Mercer MD [facility] [place] [address] 09/21/2024 2:45 PM EDT Office Visit [facility] [place] [phone] Trung Hoyos MD [facility] [place] [address] documented as of this encounter Visit Diagnoses Not on filedocumented in this encounter Care Teams Supervisor [employer] Relationship Specialty Start Date End Date Deacon Watters, JAZMINE [address] [place] [address] PCP - General Family Medicine 02/17/22 documented as of this encounter
--- OUTSIDE RECORDS SUMMARY | 2024-07-27 13:36 | XMS_ITS | Encounter Summary ---
Author Organization [facility] Address [facility] [place] [address] Care Team Providers Care Supervisor Cook Room Name Role Phone Deacon Watters APRN Primary Care Provider [phone] Reason for Referral * Consultation (Routine) - Authorized Specialty Diagnoses / Procedures Referred By Contac t Referred To Contact Cardiology Diagnoses NSTEMI (non-ST elevated myocardial infarction) Ronel Hensley MD [facility] [place] [address] [facility] Cardiology [address] [place] [phone] Referral ID Status Reason Start Date Expiration Date Visits Requested Visits Authorized [id number] Authorized Consult, Test & Treat 07/04/2024 07/04/2025 1 1 * Consultation (Routine) - Authorized Specialty Diagnoses / Procedures Referred By Contac t Referred To Contact Cardiology Diagnoses NSTEMI (non-ST elevated myocardial infarction) Armond Denny MD [facility] [place] [place] [address] Cardiac Rehab, [facility] [address] [place] [address] [place] [address] Referral ID Status Reason Start Date Expiration Date Visits Requested Visits Authorized [id number] Authorized Consult, Test & Treat 07/04/2024 12/31/2024 36 36 Reason for Visit * Auth/Cert (Routine) Specialty Diagnoses / Procedures Referred By Contac t Referred To Contact Diagnoses NSTEMI (non-ST elevated myocardial infarction) NSTEMI Triston Godinez MD [facility] [place] [place] [address] [facility] Referral ID Status Reason Start Date Expiration Date Visits Re quested Visits Authorized [id number] 1 1 Encounter Details Date Type Department Care Team (Latest Contact Info) Description 06/30/2024 3:44 PM EDT - 07/04/2024 3:25 PM EDT Hospital Encounter Heart and Vascular Unit Level 3 Wing B at [place] [phone] [facility] [place] [place] [address] [facility] [place] [address] NSTEMI (non-ST elevated myocardial infarction) (Primary Dx) Discharge Disposition: Home Social History Tobacco Use Types Packs/Day Years Used Date Smoking Tobacco: Former Cigarettes 4 30 1 12/01/1961 - 10/01/1992 Smokeless Tobacco: Former Chew Comments:Denies vaping Alcohol Use Standard Drinks/Week Comments Yes 0 (1 standard drink = 0.6 oz pur e alcohol) twice a year [facility] Utilities Answer Date Recorded In the past 12 months has [employer] electric, gas, oil, or water company threatened [...] any time in the past 12 m [facility], were you homeless or living in a alf (including now)? No 07/01/2024 DH IPV Inpatient [...] migraines, DM2, and UC who [facility] and was transferred to [facility] for NSTEMI found to have HFrEF. Course [...] He was discharged with 6 days of [id number] mg BID after receiving 1 day of [...] Jardiance allergy. PCP Contact Information: Deacon Watters, ARTILLERY OFFICER [address] / [facility] [address] Discharge Diagnoses (Hospital Problems) and Secondary Diagnoses [...] #HTN #HLD Mr. Rodriguez was transferred to [facility] for NSTEMI with trops of 4143 and 20,000 at the OSH, where he was loaded with ASA, plavix and started on heparin gtt. At [facility], his trops trended down to 1234. In [...] dose. Would consider changes to his regimen residential to reduce the A1c. #GERD He takes [...] 9:00 AM Dion Osullivan MD Gastroenterology at [facility] Arrive at: Long Term Care Administrator Area [phone] 09/01/2024 11:20 AM Gómez Mercer MD Dermatology at [facility] Arrive at: Long Term Care Administrator [address] [place] [phone] 09/21/2024 2:45 PM Trung Hoyos MD Pain and Spine Center at [facility] Arrive at: Long Term Care Administrator Area [phone] Future Orders Complete By Expires Referral to Cardiac Rehab [[id number] Custom] As directed Process Instructions: If no progress note charted, please enter Clinical details in comments. Scheduling Instructions: Questions: My question or request is: NSTEMI, PCI, HFrEF- cardiac rehab at [facility] Referral to Cardiology [REF12 Custom] As [...] appointments: During 8am-5pm Thursday through Thursday call [phone] to speak with a nurse in the cardiology clinic All other times call [phone] and ask to speak to the distribution operations supervisor diesel mechanic construction. Home oxygen therapy: none Arrangements for VNA/home care: none Follow up Appointments: Future Appointments Date Time Provider Department Center 08/15/2024 9:00 AM Dion Osullivan MD [facility] 09/01/2024 11:20 AM Gómez Mercer MD [facility] 09/21/2024 2:45 PM Trung Hoyos MD [facility] Pain Sp [facility] Tube Bender: [facility] - referral sent and they are aware you need an appointment. If they do not reach out to you with an appointment in 1 week, call and ask for the cardiology clinic. PCP: Deacon Watters APRN at [phone] on July 08 at 4 PM Your Inpatient Doctor(s) at [facility]: Armond Denny MD - Attending physician Your Primary Care Provider: Deacon Watters APRN [address] / [facility] [phone] If you have non-emergent questions between now and the time of your follow up appointments: During 8am-5pm Thursday through Thursday call [phone] to speak with a nurse in the cardiology clinic All other times call [phone] and ask to speak to the distribution operations supervisor diesel mechanic construction. Provider Contact Information: Deacon Watters APRN [address] / [facility] [address] Discharge References/Attachments: Discharge References/Attachments None For questions regarding this document or issues relating to this hospitalization on the Medical Service, please contact your inpatient physician through the [facility] Speaker Mounter . Issues afterhours and on weekends will be handled by the Tube Bender staff on-call. Signed: Ronel Hensley MD Internal [...] appointments: During 8am-5pm Thursday through Thursday call [phone] to speak with a nurse in the cardiology clinic All other times call [phone] and ask to speak to the distribution operations supervisor diesel mechanic construction. Home oxygen therapy: none Arrangements for VNA/home care: none Follow up Appointments: Future Appointments Date Time Provider Department Center 08/15/2024 9:00 AM Dion Osullivan MD [facility] GASTRO [facility] 09/01/2024 11:20 AM Gómez Mercer MD [facility] 09/21/2024 2:45 PM Trung Hoyos MD [facility] Pain Sp [facility] Tube Bender: [facility] - referral sent and they are aware you need an appointment. If they do not reach out to you with an appointment in 1 week, call and ask for the cardiology clinic. PCP: Decaon Watters APRN at [phone] on July 08 at 4 PM Your Inpatient Doctor(s) at [facility]: Armond Denny MD - Attending physician Your Primary Care Provider: Deacon Watters APRN [address] [facility] / [facility] [id number] If you have non-emergent questions between now and the time of your follow up appointments: During 8am-5pm Thursday through Thursday call [phone] to speak with a nurse in the cardiology clinic All other times call [phone] and ask to speak to the distribution operations supervisor diesel mechanic construction. documented in this encounter Medications at Time [...] migraines, DM2, and UC whowas transferred to [facility] for NSTEMI and now found to have [...] 3.66) performed by Dion Osullivan MD at [facility] ENDOSCOPY PRO COLONOSCOPY, BIOPSY N/A 02/22/2019 COLONOSCOPY FLEXIBLE, WITH BX (WRVU 3.66) performed by Dion Osullivan MD at [facility] ENDOSCOPY PRO COLONOSCOPY, BIOPSY N/A 03/28/2022 COLONOSCOPY FLEXIBLE, WITH BX (WRVU 3.66) performed by Mona Turner MD at [facility] ENDOSCOPY PRO COLONOSCOPY, BIOPSY N/A 01/20/2024 COLONOSCOPY FLEXIBLE, WITH BX (WRVU 3.56) performed by Anthony Hamlin MD at [facility] ENDOSCOPY PRO COLONOSCOPY, DIAGNOSTIC 11/27/2011 COLONOSCOPY, DIAGNOSTIC performed by Dion OSULLIVAN at [facility] ENDOSCOPY PRO COLONOSCOPY, DIAGNOSTIC 07/13/2014 COLONOSCOPY, DIAGNOSTIC performed by Dion Osullivan MD at [facility] ENDOSCOPY PRO COLONOSCOPY, REMV LESN, SNARE N/A 02/22/2019 COLONOSCOPY, POLYPECTOMY, REMOVAL LESION BY SNARE (WRVU 4.67) performed by Dion Osullivan MD at [facility] ENDOSCOPY PRO COLONOSCOPY, REMV LESN, SNARE N/A 02/26/2021 COLONOSCOPY, POLYPECTOMY, REMOVAL LESION BY SNARE (WRVU 4.67) performed by Dion Osullivan MD at [facility] ENDOSCOPY PRO SIGMOIDOSCOPY, DIAGNOSTIC 03/16/2012 FLEXIBLE SIGMOIDOSCOPY performed by YUDI MALLOY at [facility] ENDOSCOPY PRO UPPER GI ENDOSCOPY, DIAGNOSTIC N/A 04/28/2019 EGD, UPPER GI ENDOSCOPY performed by Iza Coates MD at [facility] ENDOSCOPY UPPER GI ENDOSCOPY, EXAM 10/01/2012 UPPER GI ENDOSCOPY performed by Dion OSULLIVAN at [facility] Social History: Home set-up: Lives on the first floor of a two level home in [place], [place] Stairs: FOS with bilateral rails vs a few stairs through the back to the first level, 8 step between rooms Bathroom Set-up: Tub-shower with grab bars, no shower chair Baseline Mobility: Ambulates without an assistive device. Independent with I/ADLs, including driving. 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 He enjoys taking care of his property including [employer]. He sleeps in a flat bed. 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 [...] chair alarm active following visit. Assessment: Brian Toan CardozaRodriguez was seen today for physical therapy evaluation. [...] Moderate Complexity Evaluation Qing Braxton, PT Pager: [phone] Physical Therapy Inpatient Rehabilitation Department * Day, Tray Bassett OT - 07/04/2024 9:40 AM EDT Occupational Therapy Evaluation Patient profile: Brian Rodriguez is a 74 y.o. male admitted on 06/30/2024 with PMHx of HTN, HLD, migraines, DM2, and UC who was transferred to [facility] for NSTEMI and now found to have HFrEF. Pt now s/p PCIto LCX. Past Medical History: Diagnosis Date Asthma 10/01/2011 Diabetes mellitus 10/01/2011 GERD (gastroesophageal reflux disease) 10/01/2011 Hearing loss 10/01/2011 Hydrocele 10/01/2011 Ulcerative colitis 10/01/2011 Past Surgical History: Procedure Laterality Date PRO COLONOSCOPY, BIOPSY N/A 02/12/2017 COLONOSCOPY FLEXIBLE, WITH BX (WRVU 3.66) performed by Dion Osullivan MD at [facility] ENDOSCOPY PRO COLONOSCOPY, BIOPSY N/A 02/22/2019 COLONOSCOPY FLEXIBLE, WITH BX (WRVU 3.66) performed by Dion Osullivan MD at [facility] ENDOSCOPY PRO COLONOSCOPY, BIOPSY N/A 03/28/2022 COLONOSCOPY FLEXIBLE, WITH BX (WRVU 3.66) performed by Mona Turner MD at [facility] ENDOSCOPY PRO COLONOSCOPY, BIOPSY N/A 01/20/2024 COLONOSCOPY FLEXIBLE, WITH BX (WRVU 3.56) performed by Anthony Hamlin MD at [facility] ENDOSCOPY PRO COLONOSCOPY, DIAGNOSTIC 11/27/2011 COLONOSCOPY, DIAGNOSTIC performed by Dion OSULLIVAN at [facility] ENDOSCOPY PRO COLONOSCOPY, DIAGNOSTIC 07/13/2014 COLONOSCOPY, DIAGNOSTIC performed by Dion Osullivan MD at [facility] ENDOSCOPY PRO COLONOSCOPY, REMV LESN, SNARE N/A 02/22/2019 COLONOSCOPY, POLYPECTOMY, REMOVAL LESION BY SNARE (WRVU 4.67) performed by Dion Osullivan MD at [facility] ENDOSCOPY PRO COLONOSCOPY, REMV LESN, SNARE N/A 02/26/2021 COLONOSCOPY, POLYPECTOMY, REMOVAL LESION BY SNARE (WRVU 4.67) performed by Dion Osullivan MD at [facility] ENDOSCOPY PRO SIGMOIDOSCOPY, DIAGNOSTIC 03/16/2012 FLEXIBLE SIGMOIDOSCOPY performed by YUDI MALLOY at [facility] ENDOSCOPY PRO UPPER GI ENDOSCOPY, DIAGNOSTIC N/A 04/28/2019 EGD, UPPER GI ENDOSCOPY performed by Iza Coates MD at [facility] ENDOSCOPY UPPER GI ENDOSCOPY, EXAM 10/01/2012 UPPER GI ENDOSCOPY performed by Dion OSULLIVAN at [facility] END[facility] Social History: Home set-up: Lives on the first floor of a two level home in [place], [place] Stairs: FOS with bilateral rails vs a few stairs through the back to the first level, 8 step between rooms Bathroom Set-up: Tub-shower with grab bars, no shower chair Baseline Mobility: Ambulates without an assistive device. Independent with I/ADLs, including driving. 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 He enjoys taking care of his property including [employer]. He sleeps in a flat bed. 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 [...] on. RN notified of position. Assessment: Brian Toan Rodriguez has been seen for occupational therapy [...] and measurable assessment of functional outcome. Pager: [phone] Tray Logan OTR/L Occupational Therapy Rehabilitation Department * Armond Denny MD - 07/03/2024 7:03 AM EDT Inpatient Cardiology Progress Note Patient Name: Brian Rodriguez Date of Admission: 06/30/2024 ( Hospital Day 3 days ) Service: S2 ID: Brian Rodriguez is a 74 y.o. male with PMHx of HTN, HLD, migraines, DM2, and UC who presented [facility] for chest pain and was transferred to [facility] for NSTEMI found to have HFrEF. Active [...] 1809 PROBNP 2,259* Trops: OSH 4143 >20,000>> [facility] 1234 and 1274 06/30 Telemetry: some PVCs [...] DM2, and UC who was transferred to [facility] for NSTEMI and now found to have [...] 7.3. 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 - holding home glipizide and metformin [...] Katia Reid MD Internal Medicine PGY-3 Pager [phone], M1-S2 Service CARDIOLOGY STAFF NOTE I have personally interviewed and examined the patient and reviewed appropriate data, including labs, ECGs and other diagnostic studies. I agree with the principal findings documented above. The assessment and plan were formulated in discussion with me. Armond Denny MD, [facility] Staff Tube Bender certifier * Armond Denny MD - 07/02/2024 6:17 AM EDT Inpatient Cardiology Progress Note Patient Name: Brian Rodriguez Date of Admission: 06/30/2024 ( Hospital Day 2 days ) Service: S2 ID: Brian Rodriguez is a 74 y.o. male with PMHx of HTN, HLD, migraines, DM2, and UC who presented [facility] for chest pain and was transferred to [facility] for NSTEMI found to have HFrEF. Active [...] 1809 PROBNP 2,259* Trops: OSH 4143 >20,000>> [facility] 1234 and 1274 06/30 Telemetry: some PVCs [...] DM2, and UC who was transferred to [facility] for NSTEMI and now found to have [...] 7.3. Will need outpatient follow up for residential changes. - holding home glipizide and metformin [...] Ronel Hensley MD Internal Medicine PGY-1 Pager [phone], M1-S2 Service CARDIOLOGY STAFF NOTE I have personally interviewed and examined the patient and reviewed appropriate data, including labs, ECGs and other diagnostic studies. I agree with the principal findings documented above. The assessment and plan were formulated in discussion with me. Armond Denny MD, [facility], [facility] Staff Tube Bender certifier * Armond Denny MD - 07/01/2024 6:15 AM EDT Inpatient Cardiology Progress Note Patient Name: Brian Rodriguez Date of Admission: 06/30/2024 ( Hospital Day 1 day ) Service: S2 ID: Brian Rodriguez is a 74 y.o. male with PMHx of HTN, HLD, migraines, DM2, and UC who presented [facility] for chest pain and was transferred to [facility] for NSTEMI found to have HFrEF. Active Problems: Active Hospital Problems Diagnosis NSTEMI (non-ST elevated myocardial infarction) Resolved Hospital Problems No resolved problems to display. 24 hr events: Yesterday - transferred to [facility] for NSTEMI Overnight - no acute events [...] 1809 PROBNP 2,259* Trops: OSH 4143 >20,000>> [facility] 1234 and 1274 last night Telemetry: NSR [...] DM2, and UC who was transferred to [facility] for NSTEMI and now found to have [...] 7.3. Will need outpatient follow up for residential changes. - holding home glipizide and metformin [...] Ronel Hensley MD Internal Medicine PGY-1 Pager [phone], M1-S2 Service CARDIOLOGY STAFF NOTE I have personally interviewed and examined the patient and reviewed appropriate data, including labs, ECGs and other diagnostic studies. I agree with the principal findings documented above. The assessment and plan were formulated in discussion with me. Plan for cath today and introduction of full complement of medical therapies for ACS/HFrEF. Armond Denny MD, [facility], [facility] Staff Tube Bender certifier documented in this encounter H&P Notes * ArjunJudie, ARTILLERY OFFICER - 07/01/2024 9:33 AM EDT Images from [...] PCP: Deacon Watters APRN PCP phone #: [phone] ID/Chief Complaint: Brian Rodriguez is a 74 y.o. male with PMHx of HTN, HLD, migraines, DM2, and UC who presented to [facility] for chest pain and was transferred to [facility] for NSTEMI. History of Present Illness: Brian [...] infarction) Ulcerative colitis Colonoscopy 04/08/10 (Dr. Gomes [facility]) - inflammation only within the rectum and sigmoid; extent of the exam was to the hepatic flexure; biopsies proximal to the sigmoid nl Repeat exam 11/27/11 ([facility]): [...] ascending colon. Several HPs and one TA. [place] 03/2022 - [place] 1 limited to rectosigmoid, [...] in the last 7068 hours. Invalid input(s): [id number] Heme: No results for input(s): LDH, HAPTOGLOBIN, [...] DM2, and UC who was transferred to [facility] for NSTEMI. Given Brian's presentation and his [...] Admit to Cardiology, S2 Team Pager # [phone] #NSTEMI > trops elevated to 4143 and [...] Status: Full - Dispo:pending clinical course Ronel Hnesley MD PGY-1 Internal Medicine Cardiology Service Associated [...] Outcome: Outcome (s) achieved 07/04/2024 1234 by eJnny Reddy RN Outcome: Ongoing (Interventions Implemented as [...] in an outpatient cardiac rehabilitation program at [facility] was discussed. Patient agrees to a [...] Operative Note Patient Name: Brian Rodriguez : [id number] MR#: [id number] Case Date: 07/01/2024 Surgeon: Surgeons and Role: [...] 07/01/2024 12:11 PM EDT Brian completed a [place] Advanced directive and stated that if he [...] surrogate would be surrogate decision maker per [place] surrogate decision making law. (Only good for 180 days) Any patient receiving care in [place] must abide by [place] law. The hierarchy for surrogate decision making [...] (i) The agent with financial power of rn travel or a conservator appointed in accordance with [...] lives on 2nd floor. Son lives in trapper creeker on the property. In the last 12 months, was there a time when you were not able to pay the mortgage or rent on time?: No At any time in the past 12 months, were you homeless or living in a alf (including now)?: No In the past 12 [...] Current DME: none Home Address confirmed as: [address] [place] [address] Social & Family Supports: All names listed below confirmed with patient as current and correct Extended Emergency Contact Information Primary Emergency Contact: Sabrina Eisenberg Address: [address] [place] [phone] [facility] Mobile Relation: Child Secondary Emergency Contact: Enrique [...] Yes ; Prescription Coverage: Yes Preferred Pharmacy: [facility] - [facility], [place] - [address] [facility] [address] [facility] [address] [place] Status: Patient is a : No Primary Care Provider confirmed: Deacon Watters, ARTILLERY OFFICER [phone] Potential Needs for Transition of Care: none [...] EDT Office Visit [place] [phone] [facility] [place] [address] 09/01/2024 9:40 AM EDT Office Visit Cardiology at [address] [phone] [facility] [place] [address] 09/01/2024 11:20 AM EDT Office Visit Dermatology at [address] [place] [phone] [facility] [address] [place] [address] 09/21/2024 2:45 PM EDT Office Visit Pain [place] [phone] [facility] [place] [address] Scheduled Referrals Name Type Priority Associated Diagnoses [...] PM EDT URINALYSIS BEAKER MICROSCPIC REFLEX EXAM ([facility]) Routine 07/03/2024 3:02 PM EDT [...] CARE TEST O CEE Performing Organization Address [facility]/ZIP Co de Phone Number [facility] [place] [address] * (ABNORMAL) POC, GLUCOSE (07/04/2024 11:55 AM EDT) Glucometer, POC 287(H) 65 - 199 mg/dL 07/04/2024 11:55 AM EDT [facility] Comment:Supplemental ranges: <140 mg/dL before meals <180 mg/dL all other times of the day. Blood CAPILLARY BLOOD / Unknown 07/04/2024 11:55 AM EDT 07/04/2024 11:55 AM EDT Armond Denny MD POINT OF CARE TEST O RDMELISSA Performing Organization Address City/[facility]/ZIP Co de Phone Number [facility] [place] [address] * (ABNORMAL) POC, GLUCOSE (07/04/2024 11:18 AM EDT) Glucometer, POC 259(H) 65 - 199 mg/dL 07/04/2024 11:32 AM EDT [facility] Comment:Supplemental ranges: <140 mg/dL before meals <180 mg/dL all other times of the day. Blood CAPILLARY BLOOD / Unknown 07/04/2024 11:18 AM EDT 07/04/2024 11:32 AM EDT Armond Denny MD POINT OF CARE TEST O RDERABLES Performing Organization Address City/[facility]/ZIP Co de Phone Number [facility] [place] [address] * POC, GLUCOSE (07/04/2024 8:04 AM EDT) Glucometer, POC 111 65 - 199 mg/dL 07/04/2024 8:04 AM EDT [facility] Comment:Supplemental ranges: <140 mg/dL before meals <180 mg/dL all other times of the day. Blood CAPILLARY BLOOD / Unknown 07/04/2024 8:04 AM EDT 07/04/2024 8:04 AM EDT Armond Denny MD POINT OF CARE TEST O RDERABLES Performing Organization Address [facility]/ZIP Co de Phone Number [facility] [place] [address] * Magnesium (07/04/2024 1:43 AM EDT) Magnesium 0.80 0.69 - 1.07 mMol/L 07/04/2024 2:23 AM EDT [facility] Blood VENOUS BLOOD SPECIMEN / Unknown IP Care Team Draw / Unknown 07/04/2024 1:43 AM EDT 07/04/2024 1:52 AM EDT Triston Godinez MD CHEMISTRY ORDERABLES Performing Organization Address City/[facility]/ZIP Co de Phone Number [facility] [place] [address] * (ABNORMAL) Basic Metabolic Panel (07/04/2024 1:43 AM EDT) Glucose 156 65 - 199 mg/dL 07/04/2024 2:23 AM [facility] Comment:Glucose Concentratio n >=200 mg/dL plus symptoms is consistent with Diabetes Mellitus. Blood Urea Nitrogen 12 10 - 20 mg/dL 07/04/2024 2:23 AM [facility] Creatinine 1.27 0.80 - 1.50 mg/dL 07/04/2024 2:23 AM [facility] Sodium 141 135 - 145 mMol/L 07/04/2024 2:23 AM [facility] Potassium 3.9 3.5 - 5.0 mMol/L 07/04/2024 2:23 AM [facility] Chloride 108(H) 98 - 107 mMol/L 07/04/2024 2:23 AM [facility] Carbon Dioxide 22 22 - 31 mMol/L 07/04/2024 2:23 AM [facility] Anion Gap 11 5 - 15 mMol/L 07/04/2024 2:23 AM [facility] Calcium 9.4 8.5 - 10.5 mg/dL 07/04/2024 2:23 AM [facility] Est Glomerular Filtration Rate - Male 59 mL/min/1. 73 m?? 07/04/2024 2:23 AM [facility] Comment: This patient's estimated GFR was [...] MD CHEMISTRY ORDERABLES [facility] [place] [address] * (ABNORMAL) CBC (with Diff) (07/04/2024 1:43 [...] % 07/04/2024 2:00 AM [facility] NRBC% auto 0.0 % 07/04/2024 2:00 AM [facility] NRBC Absolute 0.00 0.00 - 0.00 x10(3)/mc L 07/04/2024 2:00 AM [facility] Neutrophil % 65.9 % 07/04/2024 2:00 AM [facility] Neutrophil Absolute (ANC) - Automated 3.33 1.70 - 6.10 x10(3)/mc L 07/04/2024 2:00 AM [facility] Lymph % 20.8 % 07/04/2024 2:00 AM [facility] Lymph Absolute 1.05 0.90 - 3.20 x10(3)/mc L 07/04/2024 2:00 AM [facility] Monocyte % 9.3 % 07/04/2024 2:00 AM [facility] Monocyte Absolute 0.47 0.30 - 0.90 x10(3)/mc L 07/04/2024 2:00 AM [facility] Eos % 3.0 % 07/04/2024 2:00 AM [facility] Eos Absolute 0.15 0.00 - 0.40 x10(3)/mc L 07/04/2024 2:00 AM [facility] Basophil % 0.6 % 07/04/2024 2:00 AM [facility] Baso Absolute 0.03 0.00 - 0.10 x10(3)/mc L 07/04/2024 2:00 AM [facility] Immature Gran % 0.4 % 2:00 AM [facility] Immature Gran Absolute 0.02 0.00 - 0.04 x10(3)/mc L 07/04/2024 2:00 AM [facility] Blood VENOUS BLOOD SPECIMEN / Unknown IP Care Team Draw / Unknown 07/04/2024 1:43 AM EDT 07/04/2024 1:52 AM EDT Triston Godinez MD HEMATOLOGY ORDERABLE S Performing Organization Address [facility] Co de Phone Number [facility] [place] [address] * (ABNORMAL) POC, GLUCOSE (07/03/2024 8:02 PM EDT) Glucometer, POC 251(H) 65 - 199 mg/dL 07/03/2024 8:02 PM EDT [facility] Comment:Supplemental ranges: <140 mg/dL before meals <180 mg/dL all other times of the day. Blood CAPILLARY BLOOD / Unknown 07/03/2024 8:02 PM EDT 07/03/2024 8:02 PM EDT Armond Denny MD POINT OF CARE TEST Ozzie MIKE Performing Organization Address [facility] Co de Phone Number [facility] [place] [address] * (ABNORMAL) POC, GLUCOSE (07/03/2024 4:47 PM EDT) Glucometer, POC 217(H) 65 - 199 mg/dL 07/03/2024 4:47 PM EDT [facility] Comment:Supplemental ranges: <140 mg/dL before meals <180 mg/dL all other times of the day. Blood CAPILLARY BLOOD / Unknown 07/03/2024 4:47 PM EDT 07/03/2024 4:47 PM EDT Armond Denny MD POINT OF CARE TEST Ozzie MIKE Performing Organization Address [facility] Co de Phone Number [facility] [place] [address] * (ABNORMAL) Urine culture (07/03/2024 3:02 PM EDT) Pathologist [facility] Urine Culture 50,000-99,000 cfu/ml Escherichia coli(A) VITEK [...] ug/ml: Sensitive Armond Denny MD MICROBIOLOGY - [facility] AL ORDERABLES [facility] [place] [address] * (ABNORMAL) Urinalysis Microscopic Reflex to Culture [...] Denny MD URINE ORDERABLES Performing Organization Address [facility]/ZIP Co de Phone Number [facility] [place] [phone] * Urinalysis Microscopic with Reflex to Culture (07/03/2024 3:02 PM EDT) Urine URINE SPECIMEN OBTAINED BY CLEAN CATCH PROCEDURE / Unknown Non Blood Collection / Unknown 07/03/2024 3:02 PM EDT 07/03/2024 3:13 PM EDT Armond Denny MD URINE ORDERABLES Performing Organization Address [facility]/ZIP Co de Phone Number [facility] [place] [address] * (ABNORMAL) Urinalysis with reflex Culture (07/03/2024 [...] PM EDT [facility] Specific [place] Urine Automated 1.024 1.005 - 1.030 07/03/2024 [...] MD URINE ORDERABLES [facility] [place] [address] * POC, GLUCOSE (07/03/2024 11:21 AM EDT) Glucometer, POC 177 65 - 199 mg/dL 07/03/2024 11:21 AM EDT [facility] Comment:Supplemental ranges: <140 mg/dL before meals <180 mg/dL all other times of the day. Blood CAPILLARY BLOOD / Unknown 07/03/2024 11:21 AM EDT 07/03/2024 11:21 AM EDT Armond Denny MD POINT OF CARE TEST O RDERABLES Performing Organization Address City/[facility]/ZIP Co de Phone Number [facility] [place] [address] * POC, GLUCOSE (07/03/2024 7:24 AM EDT) Glucometer, POC 124 65 - 199 mg/dL 07/03/2024 7:24 AM EDT [facility] Comment:Supplemental ranges: <140 mg/dL before meals <180 mg/dL all other times of the day. Blood CAPILLARY BLOOD / Unknown 07/03/2024 7:24 AM EDT 07/03/2024 7:24 AM EDT Armond Denny MD POINT OF CARE TEST O RDERABLES Performing Organization Address City/[facility]/ZIP Co de Phone Number [facility] [place] [address] * Magnesium (07/03/2024 4:02 AM EDT) Magnesium 0.86 0.69 - 1.07 mMol/L 07/03/2024 4:41 AM EDT [facility] Blood VENOUS BLOOD SPECIMEN / Unknown IP Care Team Draw / Unknown 07/03/2024 4:02 AM EDT 07/03/2024 4:07 AM EDT Triston Godinez MD CHEMISTRY ORDERABLES [facility] [place] [address] * Basic Metabolic Panel (07/03/2024 4:02 AM EDT) Glucose 146 65 - 199 mg/dL 07/03/2024 4:41 AM [facility] Comment:Glucose Concentratio n >=200 mg/dL plus symptoms is consistent with Diabetes Mellitus. Blood Urea Nitrogen 15 10 - 20 mg/dL 07/03/2024 4:41 AM [facility] Creatinine 1.25 0.80 - 1.50 mg/dL 07/03/2024 4:41 AM [facility] Sodium 138 135 - 145 mMol/L 07/03/2024 4:41 AM [facility] Potassium 3.6 3.5 - 5.0 mMol/L 07/03/2024 4:41 AM [facility] Chloride 105 98 - 107 mMol/L 07/03/2024 4:41 AM [facility] Carbon Dioxide 22 22 - 31 mMol/L 07/03/2024 4:41 AM [facility] Anion Gap 11 5 - 15 mMol/L 07/03/2024 4:41 AM [facility] Calcium 9.2 8.5 - 10.5 mg/dL 07/03/2024 4:41 AM [facility] Est Glomerular Filtration Rate - Male 60 mL/min/1. 73 m?? 07/03/2024 4:41 AM [facility] Comment: This patient's estimated GFR was [...] MD CHEMISTRY ORDERABLES [facility] [place] [address] * (ABNORMAL) CBC (with Diff) (07/03/2024 4:02 AM EDT) White Blood Cell 5.90 4.00 - 9.50 x10(3)/mc L 07/03/2024 4:13 AM EDT [facility] Red Blood Cell 3.27(L) 4.58 - 5.54 x10(6)/mc L 07/03/2024 4:13 AM EDT [facility] Hemoglobin 11.0(L) 13.7 - 16.5 g/dL 07/03/2024 4:13 AM EDT [facility] Hematocrit 33.1(L) 40.5 - 48.5 % 07/03/2024 4:13 AM EDT [facility] Mean Cell Volume 101.2(H) 82.9 - 93.1 fL 07/03/2024 4:[facility] Mean Cell Hemoglobin 33.6(H) 27.5 - 32.1 pg 07/03/2024 4:13 AM [facility] Mean Cell Hemoglobin Concentration 33.2 32.0 - 35.7 g/dL 07/03/2024 4:13 [facility] Platelet 156 145 - 357 x10(3)/mc L 07/03/2024 4:13 [facility] Mean Platelet Volume 11.3 7.6 - 12.9 fL 07/03/2024 4:13 AM [facility] RDW Standard Deviation 47.5(H) 36.0 - 45.0 fL 07/03/2024 4:13 [facility] RDW coefficient of variation 12.7 11.4 - 13.8 % 07/03/2024 4:13 AM [facility] NRBC% auto 0.0 % 07/03/2024 4:13 AM [facility] NRBC Absolute 0.00 0.00 - 0.00 x10(3)/mc L 07/03/2024 4:13 AM [facility] Neutrophil % 70.0 % 07/03/2024 4:13 AM [facility] Neutrophil Absolute (ANC) - Automated 4.13 1.70 - 6.10 x10(3)/mc L 07/03/2024 4:13 AM [facility] Lymph % 18.3 % 07/03/2024 4:13 AM [facility] Lymph Absolute 1.08 0.90 - 3.20 x10(3)/mc L 07/03/2024 4:13 AM [facility] Monocyte % 8.5 % 07/03/2024 4:13 AM [facility] Monocyte Absolute 0.50 0.30 - 0.90 x10(3)/mc L 07/03/2024 4:13 AM [facility] Eos % 2.4 % 07/03/2024 4:13 AM [facility] Eos Absolute 0.14 0.00 - 0.40 x10(3)/mc L 07/03/2024 4:13 AM [facility] Basophil % 0.5 % 07/03/2024 4:13 AM [facility] Baso Absolute 0.03 0.00 - 0.10 x10(3)/mc L 07/03/2024 4:13 AM [facility] Immature Gran % 0.3 % 4:13 AM [facility] Immature Gran Absolute 0.02 0.00 - 0.04 x10(3)/mc L 07/03/2024 4:13 AM [facility] Blood VENOUS BLOOD SPECIMEN / Unknown IP Care Team Draw / Unknown 07/03/2024 4:02 AM EDT 07/03/2024 4:07 AM EDT Triston Godinez MD HEMATOLOGY ORDERABLE S Performing Organization Address City/[facility]/ZIP Co de Phone Number [facility] [place] [address] * (ABNORMAL) POC, GLUCOSE (07/02/2024 8:45 PM EDT) Glucometer, POC 271(H) 65 - 199 mg/dL 07/02/2024 8:46 PM EDT [facility] Comment:Supplemental ranges: <140 mg/dL before meals <180 mg/dL all other times of the day. Blood CAPILLARY BLOOD / Unknown 07/02/2024 8:45 PM EDT 07/02/2024 8:46 PM EDT Armond Denny MD POINT OF CARE TEST O CEE Performing Organization Address [facility] Co de Phone Number [facility] [place] [address] * (ABNORMAL) POC, GLUCOSE (07/02/2024 4:18 PM EDT) Glucometer, POC 213(H) 65 - 199 mg/dL 07/02/2024 4:19 PM EDT [facility] Comment:Supplemental ranges: <140 mg/dL before meals <180 mg/dL all other times of the day. Blood CAPILLARY BLOOD / Unknown 07/02/2024 4:18 PM EDT 07/02/2024 4:19 PM EDT Armond Denny MD POINT OF CARE TEST O CEE [facility] [place] [address] * (ABNORMAL) POC, GLUCOSE (07/02/2024 11:21 AM EDT) Glucometer, POC 234(H) 65 - 199 mg/dL 07/02/2024 11:21 AM EDT [facility] Comment:Supplemental ranges: <140 mg/dL before meals <180 mg/dL all other times of the day. Blood CAPILLARY BLOOD / Unknown 07/02/2024 11:21 AM EDT 07/02/2024 11:21 AM EDT Armond Denny MD POINT OF CARE TEST O RDERABLES Performing Organization Address City/[facility]/ZIP Co de Phone Number [facility] [place] [address] * POC, GLUCOSE (07/02/2024 7:28 AM EDT) Glucometer, POC 171 65 - 199 mg/dL 07/02/2024 7:28 AM EDT [facility] Comment:Supplemental ranges: <140 mg/dL before meals <180 mg/dL all other times of the day. Blood CAPILLARY BLOOD / Unknown 07/02/2024 7:28 AM EDT 07/02/2024 7:28 AM EDT Armond Denny MD POINT OF CARE TEST O RDERABLES Performing Organization Address [facility] Co de Phone Number [facility] [place] [address] * Magnesium (07/02/2024 7:12 AM EDT) Magnesium 0.89 0.69 - 1.07 mMol/L 07/02/2024 8:09 AM EDT [facility] Blood VENOUS BLOOD SPECIMEN / Unknown IP Care Team Draw / Unknown 07/02/2024 7:12 AM EDT 07/02/2024 7:19 AM EDT Triston Godinez MD CHEMISTRY ORDERABLES Performing Organization Address City/[facility]/ZIP Co de Phone Number [facility] [place] [address] * Basic Metabolic Panel (07/02/2024 7:12 AM EDT) Glucose 161 65 - 199 mg/dL 07/02/2024 8:09 AM [facility] Comment:Glucose Concentratio n >=200 mg/dL plus symptoms is consistent with Diabetes Mellitus. Blood Urea Nitrogen 13 10 - 20 mg/dL 07/02/2024 8:09 AM [facility] Creatinine 1.18 0.80 - 1.50 mg/dL 07/02/2024 8:09 AM [facility] Sodium 136 135 - 145 mMol/L 07/02/2024 8:09 AM [facility] Potassium 3.6 3.5 - 5.0 mMol/L 07/02/2024 8:09 AM [facility] Chloride 104 98 - 107 mMol/L 07/02/2024 8:09 AM [facility] Carbon Dioxide 24 22 - 31 mMol/L 07/02/2024 8:09 AM [facility] Anion Gap 8 5 - 15 mMol/L 07/02/2024 8:09 AM [facility] Calcium 8.8 8.5 - 10.5 mg/dL 07/02/2024 8:09 AM [facility] Est Glomerular Filtration Rate - Male 64 mL/min/1. 73 m?? 07/02/2024 8:09 AM [facility] Comment: This patient's estimated GFR was [...] MD CHEMISTRY ORDERABLES [facility] [place] [address] * (ABNORMAL) CBC (with Diff) (07/02/2024 7:12 AM EDT) White Blood Cell 5.99 4.00 - 9.50 x10(3)/mc L 07/02/2024 7:41 AM EDT [facility] Red Blood Cell 3.36(L) 4.58 - 5.54 x10(6)/mc L 07/02/2024 7:41 AM EDT [facility] Hemoglobin 11.3(L) 13.7 - 16.5 g/dL 07/02/2024 7:41 AM EDT [facility] Hematocrit 34.3(L) 40.5 - 48.5 % 07/02/2024 7:41 AM EDT [facility] Mean Cell Volume 102.1(H) 82.9 - 93.1 fL 07/02/2024 7:41 AM EDT [facility] Mean Cell Hemoglobin 33.6(H) 27.5 - 32.1 pg 07/02/2024 7:41 AM EDT [facility] Mean Cell Hemoglobin Concentration 32.9 32.0 - 35.7 g/dL 07/02/2024 7:41 AM EDT [facility] Platelet 155 145 - 357 x10(3)/mc L 07/02/2024 7:41 AM EDT [facility] Mean Platelet Volume 11.3 7.6 - 12.9 fL 07/02/2024 7:41 AM EDT [facility] RDW Standard Deviation 48.2(H) 36.0 - 45.0 fL 07/02/2024 7:41 AM EDT [facility] RDW coefficient of variation 12.9 11.4 - 13.8 % 07/02/2024 7:41 AM EDT [facility] NRBC% auto 0.0 % 07/02/2024 7:41 AM [facility] NRBC Absolute 0.00 0.00 - 0.00 x10(3)/mc L 07/02/2024 7:41 AM [facility] Neutrophil % 75.2 % 07/02/2024 7:41 AM [facility] Neutrophil Absolute (ANC) - Automated 4.50 1.70 - 6.10 x10(3)/mc L 07/02/2024 7:41 AM [facility] Lymph % 14.0 % 07/02/2024 7:41 AM [facility] Lymph Absolute 0.84(L) 0.90 - 3.20 x10(3)/mc L 07/02/2024 7:41 AM [facility] Monocyte % 8.7 % 07/02/2024 7:41 AM [facility] Monocyte Absolute 0.52 0.30 - 0.90 x10(3)/mc L 07/02/2024 7:41 AM [facility] Eos % 1.3 % 07/02/2024 7:41 AM [facility] Eos Absolute 0.08 0.00 - 0.40 x10(3)/mc L 07/02/2024 7:41 AM [facility] Basophil % 0.5 % 07/02/2024 7:41 AM [facility] Baso Absolute 0.03 0.00 - 0.10 x10(3)/mc L 07/02/2024 7:41 AM [facility] Immature Gran % 0.3 % 7:41 AM [facility] Immature Gran Absolute 0.02 0.00 - 0.04 x10(3)/mc L 07/02/2024 7:41 AM [facility] Blood VENOUS BLOOD SPECIMEN / Unknown IP Care Team Draw / Unknown 07/02/2024 7:12 AM EDT 07/02/2024 7:19 AM EDT Triston Godinez MD HEMATOLOGY ORDERABLE S [facility] [place] [address] * CT Abdomen & Pelvis w Contrast (07/02/2024 3:13 AM EDT) WORKSTATION ID [id number] RAD Anatomical Region Laterality Modality Abdomen, Pelvis [...] who have questions please contact the health wound care physician that requested your imaging first. ? Narrative [...] patients who have questions please contactthe health wound care physician that requested your imaging first. Triston Godinez MD IMG CT ORDERABLES * POC, GLUCOSE (07/01/2024 7:58 PM EDT) [facility] Glucometer, POC 84 65 - 199 mg/dL 07/01/2024 7:59 PM EDT [facility] Comment:Supplemental ranges: <140 mg/dL before meals <180 mg/dL all other times of the day. Blood CAPILLARY BLOOD / Unknown 07/01/2024 7:58 PM EDT 07/01/2024 7:59 PM EDT Armond Denny MD POINT OF CARE TEST O RDERABLES Performing Organization Address [facility] Co de Phone Number [facility] [place] [address] * POC, GLUCOSE (07/01/2024 6:41 PM EDT) Glucometer, POC 91 65 - 199 mg/dL 07/01/2024 6:41 PM EDT [facility] Comment:Supplemental ranges: <140 mg/dL before meals <180 mg/dL all other times of the day. Blood CAPILLARY BLOOD / Unknown 07/01/2024 6:41 PM EDT 07/01/2024 6:41 PM EDT Armond Denny MD POINT OF CARE TEST O RDERAOMAR Performing Organization Address [facility] Co de Phone Number [facility] [place] [address] * EKG 12 Lead (07/01/2024 5:24 PM EDT) Ventricular rate 77 BPM MUSE SYSTEM Atrial Rate 77 BPM MUSE SYSTEM P-R Interval 178 ms MUSE SYSTEM QRS Duration 138 ms MUSE SYSTEM Q-T Interval 418 ms MUSE SYSTEM QTC Calculated (Bezet) 473 ms MUSE SYSTEM Calculated P [place] 63 degrees MUSE SYSTEM Calculated R [place] 87 degrees MUSE SYSTEM Calculated T [place] 8 degrees MUSE SYSTEM INTERPRETATION Normal sinus [...] Modality Other Narrative 07/01/2024 7:47 PM EDT ?[facility] ? Cardiac Catheterization/Intervention Report ? Patient Name: Brian Rodriguez. ? Procedure Date: 07/01/2024 ? A #: [id number] ? Primary Physician: Lizzette Hayden ? Case #: [id number] ? File Name: [id number] ? Catheterization Order Number: [id number] ? [facility] ? Final Report [place], [place] ? Patient Name: ? Brian M. Rodriguez ?ID#: ?[id number] ? : ?1950 ? Procedure Date: ? July 01, 2024 ? Case #: ? [id number] ? Room: ? 5 ? Case Physician: ? Emad Catracho M.D. ? Start: ?15:10 ?Fellow: ? Waqar [...] procedure was Urgent. The indication for ?the microbiology lab manager visit is ACS less than [...] ? A premounted 2.75 x 22 mm [place]oute Herald (EILEEN) was deployed ? with a maximum [...] dose administered prior to arrival in the microbiology lab manager. ?Recommended anti-platelet/anti-thrombotic regimen: ?Continue aspirin 81 mg daily. ?Continue clopidogrel 75 mg daily. ?These recommendations are made at the time of the intervention. Patient ?and provider preferences or a changing clinical situation may require ?modification of this regimen. Consult [facility] Interventional Cardiology for ?questions. ?This patient has [...] against any medical treatment. Consult ?http://tools.acc.org/DAPTriskapp/#!/content/calculator/ or [facility] ?Interventional Cardiology for questions ? Conclusions: ?* [...] ultrasound and vascular closure device. ? Emad Toan Hayden.D. ? Report Finalized: 07/01/2024 ??19:41 ? Report Last Ammended: 07/14/2024 ??18:32 ? Procedure Note Lizzette Hayden, MD - 07/14/2024 [facility] Cardiac Catheterization/Intervention Report Patient Name: Brian Rodriguez Procedure Date: 07/01/2024 A #: [id number] Primary Physician: Lizzette Hayden Case #: [id number] File Name: [id number] Catheterization Order Number: [id number] [facility] FinalReport [place], [place] Patient Name: Brian Rodriguez ID#:[id number] :1950 Procedure Date: July 01, 2024 Case [...] patient was designated as ASA Class III. [facility] fra[facility] 4: Vulnerable. Diagnostic Tests: Medications Prior to Procedure: Aspirin, Angiotensin II Receptor Leo and Statin. Indications for Diagnostic Cath: The priority of the diagnostic procedure was Urgent. The indicationfor the microbiology lab manager visit is ACS less than [...] time was 37.0 minutes, dose area product xts130.00 Gy/cm2 and air kerma was 1,874 mGY. [...] The priority for the procedure was Urgent.The [facility] indication for the procedure was NSTE-ACS. Syntax [...] The lesion was predilated with a 2.50mm [id number] MM balloon with a maximum inflation pressure of 14atmospheres. A premounted 2.75 x 22 mm Rodo Herald (EILEEN) wasdeployed with a maximum inflation pressure [...] dose administered prior to arrival in the microbiology lab manager. Recommended anti-platelet/anti-thrombotic regimen: Continue aspirin 81 mg daily. Continue clopidogrel 75 mg daily. These recommendations are made at the time of the intervention.Patient and provider preferences or a changing clinical situation mayrequire modification of this regimen. Consult [facility]iologyfor questions. This patient has a [...] or against any medical treatment.Consult http://tools.acc.org/DAPTriskapp/#!/content/calculator/ or [facility] for questions Conclusions: * One [...] was present for the entire procedure. Dr. iLzzette Hayden M.D. was present during the moderate [...] TEST O RDERABLES [facility] [place] [address] * (ABNORMAL) Hemogram (07/01/2024 10:32 AM EDT) [...] % 07/01/2024 11:20 AM [facility] Mean Cell Volume 99.2(H) 82.9 - 93.1 fL 07/01/2024 11:[facility] Mean Cell Hemoglobin 33.2(H) 27.5 - 32.1 pg 07/01/2024 11:20 AM EDT [facility] Mean Cell Hemoglobin Concentration 33.4 32.0 - 35.7 g/dL 07/01/2024 11:20 AM [facility] Platelet 167 145 - 357 x10(3)/mc L 07/01/2024 11:20 AM [facility] Mean Platelet Volume 11.4 7.6 - 12.9 fL 07/01/2024 11:20 AM [facility] RDW Standard Deviation 46.5(H) 36.0 - 45.0 fL 07/01/2024 11:20 AM [facility] RDW coefficient of variation 12.9 11.4 - 13.8 % 07/01/2024 11:20 AM [facility] NRBC% auto 0.0 % 07/01/2024 11:20 AM [facility] NRBC Absolute 0.00 0.00 - 0.00 x10(3)/mc L 07/01/2024 11:20 AM [facility] Blood VENOUS BLOOD SPECIMEN / Unknown IP Care Team Draw / Unknown 07/01/2024 10:32 AM EDT 07/01/2024 10:54 AM EDT Armond Denny MD HEMATOLOGY ORDERABLE S [facility] [place] [address] * Heparin (unfractionated) Level (07/01/2024 10:32 AM [...] MD HEMATOLOGY ORDERABLE S Performing Organization Address City/[facility]/ZIP Co de Phone Number [facility] [place] [address] * POC, GLUCOSE (07/01/2024 7:18 AM EDT) Glucometer, POC 105 65 - 199 mg/dL 07/01/2024 7:19 AM EDT [facility] Comment:Supplemental ranges: <140 mg/dL before meals <180 mg/dL all other times of the day. Blood CAPILLARY BLOOD / Unknown 07/01/2024 7:18 AM EDT 07/01/2024 7:19 AM EDT Triston Godinez MD POINT OF CARE TEST O RDERABLES Performing Organization Address City/[facility]/ZIP Co de Phone Number [facility] [place] [address] * Heparin (unfractionated) Level (07/01/2024 3:15 AM [...] HEMATOLOGY ORDERABLE S [facility] [place] [address] * (ABNORMAL) CBC (with Diff) (07/01/2024 3:15 AM EDT) White Blood Cell 5.82 4.00 - 9.50 x10(3)/mc L 07/01/2024 3:54 AM EDT [facility] Red Blood Cell 3.60(L) 4.58 - 5.54 x10(6)/mc L 07/01/2024 3:54 AM EDT [facility] Hemoglobin 11.9(L) 13.7 - 16.5 g/dL 07/01/2024 3:54 AM [facility] Hematocrit 35.6(L) 40.5 - 48.5 % 07/01/2024 3:54 AM [facility] Mean Cell Volume 98.9(H) 82.9 - 93.1 fL 07/01/2024 3:54 AM [facility] Mean Cell Hemoglobin 33.1(H) 27.5 - 32.1 pg 07/01/2024 3:54 AM [facility] Mean Cell Hemoglobin Concentration 33.4 32.0 - 35.7 g/dL 07/01/2024 3:54 AM [facility] Platelet 169 145 - 357 x10(3)/mc L 07/01/2024 3:54 AM [facility] Mean Platelet Volume 11.6 7.6 - 12.9 fL 07/01/2024 3:54 AM [facility] RDW Standard Deviation 46.3(H) 36.0 - 45.0 fL 07/01/2024 3:54 AM [facility] RDW coefficient of variation 12.8 11.4 - 13.8 % 07/01/2024 3:54 AM [facility] NRBC% auto 0.0 % 07/01/2024 3:54 AM [facility] NRBC Absolute 0.00 0.00 - 0.00 x10(3)/mc L 07/01/2024 3:54 AM [facility] Neutrophil % 66.6 % 07/01/2024 3:54 AM [facility] Neutrophil Absolute (ANC) - Automated 3.87 1.70 - 6.10 x10(3)/mc L 07/01/2024 3:54 AM [facility] Lymph % 20.4 % 07/01/2024 3:54 AM [facility] Lymph Absolute 1.19 0.90 - 3.20 x10(3)/mc L 07/01/2024 3:54 AM EDT [facility] Monocyte % 9.6 % 07/01/2024 3:54 AM EDT [facility] Monocyte Absolute 0.56 0.30 - 0.90 x10(3)/mc L 07/01/2024 3:54 AM EDT [facility] Eos % 2.6 % 07/01/2024 [...] HEMATOLOGY ORDERABLE S [facility] [place] [address] * Magnesium (06/30/2024 11:25 PM EDT) Magnesium 0.84 0.69 - 1.07 mMol/L 07/01/2024 12:14 AM EDT [facility] Blood VENOUS BLOOD SPECIMEN / Unknown IP Care Team Draw / Unknown 06/30/2024 11:25 PM EDT 06/30/2024 11:47 PM EDT Triston Godinez MD CHEMISTRY ORDERABLES [facility] [place] [address] * (ABNORMAL) Basic Metabolic Panel (06/30/2024 11:25 PM EDT) Glucose 145 65 - 199 mg/dL 07/01/2024 12:14 AM [facility] Comment:Glucose Concentratio n >=200 mg/dL plus symptoms is consistent with Diabetes Mellitus. Blood Urea Nitrogen 10 10 - 20 mg/dL 07/01/2024 12:14 AM [facility] Creatinine 1.02 0.80 - 1.50 mg/dL 07/01/2024 12:14 AM [facility] Sodium 141 135 - 145 mMol/L 07/01/2024 12:14 AM [facility] Potassium 3.4(L) 3.5 - 5.0 mMol/L 07/01/2024 12:14 AM [facility] Chloride 106 98 - 107 mMol/L 07/01/2024 12:14 AM [facility] Carbon Dioxide 25 22 - 31 mMol/L 07/01/2024 12:14 AM [facility] Anion Gap 10 5 - 15 mMol/L 07/01/2024 12:14 AM [facility] Calcium 9.2 8.5 - 10.5 mg/dL 07/01/2024 12:14 AM [facility] Est Glomerular Filtration Rate - Male 76 mL/min/1. 73 m?? 07/01/2024 12:14 AM [facility] Comment: This patient's estimated GFR was [...] Foundation Fasting Status 07/01/2024 12:14 AM EDT [facility] Blood VENOUS BLOOD SPECIMEN / Unknown IP Care Team Draw / Unknown 06/30/2024 11:25 PM EDT 06/30/2024 11:47 PM EDT Triston Godinez MD CHEMISTRY ORDERABLES [facility] [place] [address] * (ABNORMAL) Troponin-T, Yuriy Sensitivity 3 Hour [...] troponin value can be found in the [facility] Test Catalog Troponin - https://[email or web address]-.testcatalog.org/catalogs/565/files/76273 Reference: Fourth [place] Definition of Myocardial Infarction. Journal of the [place] [employer] 2018;72:2660-3835 Troponin-T, HS 3 hr delta 65 ng/L [...] MD CHEMISTRY ORDERABLES [facility] [place] [address] * (ABNORMAL) Troponin-T, High Sensitivity 1 Hour [...] troponin value can be found in the [facility] Test Catalog Troponin - https://[email or web address].org/catalogs/565/files/78967 Reference: Fourth [place] Definition of Myocardial Infarction. Journal of the [place] College [employer] 2018;72:9710-3691 Troponin-T, HS 1 hr delta 06/30/2024 9:22 PM EDT [facility] Comment:Delta troponin value not calculated, sample collected outside of delta calculation time limit. Blood VENOUS BLOOD SPECIMEN / Unknown Venipuncture / Unknown 06/30/2024 8:22 PM EDT 06/30/2024 8:40 PM EDT Triston Godinez MD CHEMISTRY ORDERABLES Performing Organization Address [facility] Co de Phone Number [facility] [place] [address] * POC, GLUCOSE (06/30/2024 7:56 PM EDT) Glucometer, POC 144 65 - 199 mg/dL 06/30/2024 7:57 PM EDT [facility] Comment:Supplemental ranges: <140 mg/dL before meals <180 mg/dL all other times of the day. Blood CAPILLARY BLOOD / Unknown 06/30/2024 7:56 PM EDT 06/30/2024 7:57 PM EDT Triston Godinez MD POINT OF CARE TEST O RDERABLES Performing Organization Address [facility] Co de Phone Number [facility] [place] [address] * XR Abdomen Flat & Upright (06/30/2024 6:56 PM EDT) Pathologist [employer] WORKSTATION ID [id number] RAD Anatomical Region Laterality Modality Abdomen N/A Digital Radiogra phy Impressions 06/30/2024 9:12 PM EDT No obstruction or perforation. Thank you for letting us participate in the care of this patient. ??If you are a health care provider and have any questions regarding this report, please contact the number below. ??For patients who have questions please contact the health wound care physician that requested your imaging first. ? Electronically signed by: Shireen Hurtado MD, [facility] ([phone]), at 06/30/2024 9:12 PM Narrative 06/30/2024 9:12 [...] patients who have questions please contactthe health wound care physician that requested your imaging first. Electronically signed by: Shireen Hurtado MD, [facility]([phone]), at 06/30/2024 9:12 PM Triston Godinez MD IMG DX ORDERABLES * (ABNORMAL) Troponin-T, High Sensitivity (06/30/2024 6:09 PM EDT) [facility] Signature Troponin-T, High Sensitivity Initial 1,209([facility] ) <=22 ng/L 06/30/2024 7:23 PM EDT [...] troponin value can be found in the [facility] Test Catalog Troponin - [email or web address] Coffee Company.[email or web address]/catalogs/565/files/38810 Reference: Fourth [place] Definition of Myocardial Infarction. Journal of the [place] College [employer] Cardiology 2018;72:0530-7436 Blood VENOUS BLOOD SPECIMEN / Unknown Venipuncture / Unknown 06/30/2024 6:09 PM EDT 06/30/2024 6:18 PM EDT Triston Godinez MD CHEMISTRY ORDERABLES [facility] [place] [address] * (ABNORMAL) Basic Metabolic Panel (06/30/2024 6:09 [...] MD CHEMISTRY ORDERABLES [facility] [place] [address] * Lipid Panel (Reflex Direct LDL) (06/30/2024 6:09 PM EDT) [facility] Signature Cholesterol, Total 197 mg/dL 06/30/2024 6:51 PM EDT [facility] Comment: Desirable: < 200 mg/dL Borderline High: 200 - 239 mg/dL High: > or = 240 mg/dL Triglyceride 230 mg/dL 06/30/2024 6:51 PM EDT [facility] Comment: Normal: <150 mg/dL Borderline High: 150-199 mg/dL High: 200-499 mg/dL Very High: > or =500 mg/dL HDL Cholesterol 36 mg/dL 6:51 PM T [facility] Comment:Males: High Risk: <4 0 mg/dL LDL Cholesterol 120 mg/dL 6:51 PM T [facility] Comment: Desirable: <100 mg/dL Above Desirable: 100-129 mg/dL Borderline High: 130-159 mg/dL High: 160-189 mg/dL Very High: > or =190 mg/dL Note: LDL calculation updated to the NIH LDL formula as of 06/26/2024 Non-HDL Cholesterol 161 mg/dL 06/30/2024 6:51 PM T [facility] Comment: Desirable: <130 mg/dL Above Desirable: 130-159 mg/dL Borderline High: 160-189 mg/dL High: 190-219 mg/dL Very High: > or = 220 mg/dL Blood VENOUS BLOOD SPECIMEN / Unknown Venipuncture / Unknown 06/30/2024 6:09 PM EDT 06/30/2024 6:18 PM EDT [facility] - 06/30/2024 6:51 PM EDT It [...] artery disease) Triston Godinez [place] [address] * (ABNORMAL) pro-Brain Natriuretic Peptide (06/30/2024 6:09 PM EDT) [facility] NT-proBNP 2,259(H) <=449 pg/mL 06/30/2024 6:51 PM EDT [facility] Blood VENOUS BLOOD SPECIMEN / Unknown Venipuncture / Unknown 06/30/2024 6:09 PM EDT 06/30/2024 6:18 PM EDT Triston Godinez MD CHEMISTRY ORDERABLES Performing Organization Address [facility] Co de Phone Number [facility] [place] [address] * TSH (06/30/2024 6:09 PM EDT) [facility] Thyroid Stimulating Hormone 2.80 0.27 - 4.20 mcIU/mL 06/30/2024 6:51 PM EDT [facility] Blood VENOUS BLOOD SPECIMEN / Unknown Venipuncture / Unknown 06/30/2024 6:09 PM EDT 06/30/2024 6:18 PM EDT Triston Godinez MD CHEMISTRY ORDERABLES Performing Organization Address [facility] Co de Phone Number [facility] [place] [address] * Heparin (unfractionated) Level (06/30/2024 6:08 PM EDT) [facility] UF Heparin 0.07 IU/mL 06/30/2024 6:34 [...] HEMATOLOGY ORDERABLE S [facility] [place] [address] * (ABNORMAL) CBC (with Diff) (06/30/2024 6:08 [...] 7.6 - 12.9 fL 06/30/2024 6:36 PM [facility] RDW Standard Deviation 48.4(H) 36.0 - 45.0 fL 06/30/2024 6:36 PM [facility] RDW coefficient of variation 13.0 11.4 - 13.8 % 06/30/2024 6:36 PM [facility] NRBC% auto 0.0 % 06/30/2024 6:36 PM [facility] NRBC Absolute 0.00 0.00 - 0.00 x10(3)/mc L 06/30/2024 6:36 PM [facility] Neutrophil % 71.2 % 06/30/2024 6:36 PM [facility] Neutrophil Absolute (ANC) - Automated 4.59 1.70 - 6.10 x10(3)/mc L 06/30/2024 6:36 PM [facility] Lymph % 18.1 % 06/30/2024 6:36 PM [facility] Lymph Absolute 1.17 0.90 - 3.20 x10(3)/mc L 06/30/2024 6:36 PM [facility] Monocyte % 8.2 % 06/30/2024 6:36 PM [facility] Monocyte Absolute 0.53 0.30 - 0.90 x10(3)/mc L 06/30/2024 6:[facility] Eos % 1.7 % 06/30/2024 6:36 PM [facility] Eos Absolute 0.11 0.00 - 0.40 x10(3)/mc L 06/30/2024 6:36 PM [facility] Basophil % 0.6 % 06/30/2024 6:36 PM [facility] Baso Absolute 0.04 0.00 - 0.10 x10(3)/mc L 06/30/2024 6:36 PM EDT [facility] Immature Gran % 0.2 % 6:36 PM EDT [facility] Immature Gran Absolute 0.01 0.00 - 0.04 x10(3)/mc L 06/30/2024 6:36 PM EDT [facility] Blood VENOUS BLOOD SPECIMEN / Unknown Venipuncture / Unknown 06/30/2024 6:08 PM EDT 06/30/2024 6:18 PM EDT Triston Godinez MD HEMATOLOGY ORDERABLE S [facility] [place] [address] * (ABNORMAL) Hemoglobin A1c (06/30/2024 6:08 PM [...] red blood cell turnover may not be independent sales representative of glycemic control. Reference Interval: [...] into estimated average glucose values. ??Diabetes Care 2008:31(8):7323-8523. Additional resources are available on the ADA website (diabetes.org). Triston Godinez MD CHEMISTRY ORDERABLES Performing Organization Address City/[facility]/ZIP Co de Phone Number [facility] [place] [address] * POC, GLUCOSE (06/30/2024 5:58 PM EDT) [facility] Glucometer, POC 148 65 - 199 mg/dL 06/30/2024 5:58 PM EDT [facility] Comment:Supplemental ranges: <140 mg/dL before meals <180 mg/dL all other times of the day. Blood CAPILLARY BLOOD / Unknown 06/30/2024 5:58 PM EDT 06/30/2024 5:58 PM EDT Triston Godinez MD POINT OF CARE TEST O RDERABLES Performing Organization Address City/[facility]/ZIP Co de Phone Number [facility] [place] [address] * EKG 12 Lead (06/30/2024 5:23 PM EDT) [facility] Ventricular rate 73 BPM MUSE SYSTEM Atrial Rate 300 BPM MUSE SYSTEM QRS Duration 72 ms MUSE SYSTEM Q-T Interval 404 ms MUSE SYSTEM QTC Calculated (Bezet) 445 ms MUSE SYSTEM Calculated P [place] 71 degrees MUSE SYSTEM Calculated R [place] 65 degrees MUSE SYSTEM Calculated T [place] 30 degrees MUSE SYSTEM INTERPRETATION Normal sinus [...] EDT ? Version: 1 Name: BRIAN RODRIGUEZ Toan ?Study Date: 06/30/2024, 4: 39 PM ?BP: 137 / 78 mmHg ?Patient Location: [id number]^374^A : 1950 (MM/DD/YYYY) ? Height: 193 cm ? Age: 74 Years ? Weight: 113 kg Gender: Male ?BSA: 2.43 m?? Ordering Physician: TRISTON GODINEZ Referring Physician: KENJI THOMAS Performed By: Carol Villarreal Reason For Study: NSTEMI (non-ST elevation myocardial infarction) Exam Location: [facility]. ? Conclusions -Left ventricular systolic function is moderately reduced. The left ventricular ejection fraction is 36% by Dowd's biplane. The anterolateral and inferolateral barahona are akinetic. The anterior wall is hypokinetic. -Right ventricle is mildly dilated. Systolic function is normal. -No significant valve disease. -See report for additional findings. No prior study is available. Procedure Complete-[id number]. Image enhancement Optison was used for left [...] NSTEMI (non-ST elevation myocardial infarction) Exam Location: [facility]. Conclusions -Left ventricular systolic function is moderately reduced. The leftventricular ejection fraction is 36% by Dowd's biplane. The anterolateral andinferolateral bar[place]ona are akinetic. The anterior wall is hypokinetic. -Right ventricle is mildly dilated. Systolic function is normal. -No significant valve disease. -See report for additional findings. No prior study is available. Procedure Complete-[id number]. Image enhancement Optison was used for left [...] (Bezet) 460 ms MUSE SYSTEM Calculated P [place] 69 degrees MUSE SYSTEM Calculated R [place] 78 degrees MUSE SYSTEM Calculated T [place] 39 degrees MUSE SYSTEM INTERPRETATION Sinus rhythm [...] Tresa 06/30/24 at 1558, Until 07/04/24 at 1726, for stomach pain Given 07/01/2024 [...] Units/hr (0-100 mL/hr), Intravenous, CONTINUOUS, Starting on Thu06/30/24 at 1715, Until Thu07/01/24 at 2121, Begin [...] 0836 (Given - Provider: Jenny Reddy, RN) atorvastatin (Lipitor) tablet 80 mg 80 [...] 0836 (Given - Provider: Jenny Reddy, RN) enoxaparin (Lovenox) (40 mg/0.4 mL) subcutaneous injection 40 mg 40 mg, Subcutaneous, NIGHTLY, First dose on Thu07/03/24 at 2100, Until Discontinued, Routine 2010 (Given - Provider: Shea Shaver, RN) folic acid (Vitamin B9) tablet 1,000 mcg 1,000 mcg, Oral, DAILY, First dose on Thu06/30/24 at 1730, Until Discontinued, Routine 808 (Given - Provider: Sujata Duncan RN) 08 (Given - Provider: Jenny Reddy, RONY) 08 (Given - Provider: Jenny Reddy, RONY) insulin glargine-ygfn (Semglee) (100 unit/mL) subcutaneous injection vial 70 Units 70 Units, Subcutaneous, NIGHTLY, First dose on Tresa 06/30/24 at 2100, Until Discontinued, Routine 2045 (Given [...] EVERY 6 HOURS SCHEDULED, First dose on [facility] 07/02/24 at 1200, Until Discontinued, [...] Jenny Reddy, RONY)2322 (Given - Provider: Shea Shaver, RONY) pantoprazole EC (Protonix) tablet 40 mg 40 [...] Routine 0809 (Given - Provider: Sujata Duncan RN)204 (Given - Provider: Shea Shaver RN) 08 [...] Shaver RN)1500 (Due - Provider: Iram De Jesus, [facility]) tamsulosin (Flomax) capsule 0.8 mg 0.8 mg, [...] Routine documented in this encounter Care Teams Supervisor Cook Room Relationship Specialty Start Date End Date Deacon Watters APRN [address] [place] [address] PCP - General Family Medicine 02/17/22 documented as of this encounter
--- OUTSIDE RECORDS SUMMARY | 2024-07-27 13:37 | XMS_ITS | Encounter Summary ---
Author Organization [facility] Address [facility] [place] [address] Care Team Providers Care Consumer Electronic Retail Specialist Name Role Phone Duong Deacon Wells APRN Primary Care Provider [phone] Encounter Details Date Type Department Care Team [...] AM EDT Office [place] [address] Dion Barlow MD [facility] [place] [address] 09/01/2024 9:40 AM EDT Office Visit Cardiology at [address] [id number] Franky Shaver MD [facility] [place] [address] 09/01/2024 11:20 AM EDT Office Visit Dermatology at [facility] [address] [place] [address] Gómez Mercer MD [facility] [address] [place] [address] 09/21/2024 2:45 PM EDT Office Visit [facility] [place] [phone] Trung Hoyos MD [facility] [place] [address] documented as of this encounter Visit Diagnoses Not on filedocumented in this encounter Care Teams Consumer Electronic Retail Specialist Relationship Specialty Start Date End Date Deacon Watters, JAZMINE [address] [place] [address] PCP - General Family Medicine 02/17/22 documented as of this encounter
--- OUTSIDE RECORDS SUMMARY | 2024-07-27 13:37 | XMS_ITS | Encounter Summary ---
Author Organization [facility] Address [facility] [place] [address] Care Team Providers Care Cordwainer Name Role Phone Duong Deacon Wells APRN Primary Care Provider +1- [phone] Reason for Visit * Reason Comments Basal Cell Carcinoma Encounter Details Date Type Department Care Team (Latest Contact Info) Description 02/17/2024 8:00 AM EDT Procedure visit Dermatology at [facility] [address] [place] [address] Kingsley Finn MD [facility] DR EDDIE [place] [address] Basal cell carcinoma of right side of [...] is performed when alternative procedures such as [id number] stitching is not optimal. Your graft may [...] the first week unless told differently. Some guest relations manager may need to be delayed or delegated [...] as often as is recommended by your rehab director occupational therapist, for new skin cancers. This is once [...] it. If after hours, please call the saw operator or [phone] and ask for the rehab director occupational therapist on-call. If you have any non-urgent questions or concerns, please feel free to call my office or contact me through our patient portal, [employer], at [email or web address] How to contact us during business hours Dermatology at [facility] Road: Mohs scheduling or Mohs follow-up appointments: [phone] documented in this encounter Progress Notes * [...] and follow up with his or her rehab director occupational therapist or other skin provider. 5. Discussed avoiding [...] Reviewed and signed by: Kingsley Finn Dermatology [facility] * Kingsley Finn MD - 02/17/2024 8:00 AM EDT Mohs micrographic Surgery Operative Report Patient name: Brian Rodriguez : 1950 Date: 02/17/2024 Staff Surgeon and Pathologist: Kingsley Finn MD PhD Nursing/Ultimate Hoops Trainer(s): Paula Baez RN, Zuly Morales RN, Barbara Platt COAL TRIMMER, Olga Yostegand-Kaylin ROBINS, Vladimir Ward CMA, Inge ArellanoAdventhealthDamascus TELEPHONE APPOINTMENT CLERK, Leah PATEL Gear Hobber Operator (s): Vladimir Alejandro CMA Pre-operative diagnosis: Basal [...] The site was confirmed with the patient/authorized outbound sales representative/referring physician and/or a photograph form [...] Surgery and Dermatologic Oncology Department of Dermatology [address] [place] [id number] OPERATIVE REPORT (REPAIR) Patient Name: Brian Rodriguez [...] Rodriguez Staff Surgeon: Kingsley Finn MD PhD Mergers And Acquisitions Associate(s): same as above social worker assistant: Zuly Morales RN; Magda dEouard MD; Shannen Garcia MD Date: 02/17/2024 Clinical [...] Surgery and Dermatologic Oncology Department of Dermatology [address] [place], [place] [address] Note initiated by Zuly Morales RN. Zuly Morales RN has performed the documentation for this encounter in the presence of and acting as a scribe for Dr. Finn I performed the above scribed service and agree with the accuracy of the documentation in this encounter. Reviewed and signed by: Kingsley Finn [facility]ermat[facility] documented in this encounter Plan of Treatment Upcoming Encounters Date Type Department Care Team (Late st Contact Info) Description 08/15/2024 9:00 AM EDT Office [place] [address] Dion Barlow MD [facility] [place] [address] 09/01/2024 9:40 AM EDT Office Visit Cardiology at [address] [place] [address] Franky Shaver MD [facility] [place] [address] 09/01/2024 11:20 AM EDT Office Visit Dermatology at [facility] [address] [place] [phone] Gómez Mercer MD [facility] [place] [address] 09/21/2024 2:45 PM EDT Office Visit Pain and Spine Center at [facility] [place] [phone] Trung Hoyos MD [facility] [place] [address] documented as of this encounter Visit Diagnoses Diagnosis Basal cell carcinoma of right side of nose Basal cell carcinoma of skin of other and unspecified parts of face documented in this encounter Care Teams Cordwainer Relationship Specialty Start Date End Date Deacon Watters, JAZMINE [address] [facility] [address] [place] [address] PCP - General Family Medicine 02/17/22 documented as of this encounter
--- OUTSIDE RECORDS SUMMARY | 2024-07-27 13:37 | XMS_ITS | Encounter Summary ---
Author Organization [facility] Address [facility] [place] [address] Care Team Providers Care [employer] Team Member Name Role Phone Duong Deacon Wells APRN Primary Care Provider +1- [phone] Encounter Details Date Type Department Care Team (Late st Contact Info) Description 01/20/2024 10:15 AM EST - 01/20/2024 11:00 AM EST [place] [address] Anthony Hamlin MD [facility] [place] [address] COLONOSCOPY FLEXIBLE, WITH BX (WRVU 3.56) Social [...] occurs, please contact your Doctor. Please call [phone] before 8pm Mon-Fri with problems, questions or concerns. If you call after 8pm or on weekends, call the Hospital at [phone] and ask to speak to the Keg Inspector group leader semiconductor testing and the patching machine operator will contact that person for you. When should you call for help? Call [phone] anytime you think you may need emergency [...] After Visit Summary and more online at [email or web address] If you would like to provide feedback [...] cost to you. Content Version: 12.2 ?? 5126-8477 [employer]. Care instructions adapted under license by [facility]. If you have questions about a medical condition or this instruction, always ask your healthcare professional. [employer] disclaims any warranty or liability for your [...] 9:00 AM EDT Office [place] [address] Dion Barlow MD [facility] [place] [address] 09/01/2024 9:40 AM EDT Office Visit Cardiology at [address] [phone] Franky Shaver MD [facility] [place] [address] 09/01/2024 11:20 AM EDT Office Visit Dermatology at [address] [phone] Gómez Mercer MD [facility] [place] [address] 09/21/2024 2:45 PM EDT Office Visit [facility] [place] [phone] Trung Hoyos MD [facility] [place] [address] documented as of this encounter Procedures Procedure [...] Routine 01/20/2024 10:24 AM EST Colonoscopy, Biopsy ([id number]) 01/20/2024 10:09 AM EST Left sided colitis without complications POCT GLUCOSE Routine 01/20/2024 10:05 AM EST POCT FINGERSTICK GLUCOSE Routine 01/20/2024 10:05 AM EST COLONOSCOPY Routine 01/20/2024 10:01 AM EST documented in this encounter Results * Specimen to Pathology (01/20/2024 10:48 AM EST) AP Specimen 01/20/2024 10:4 8 AM EST 01/20/2024 10:48 AM EST Narrative [facility] - 01/20/2024 10:48 AM EST Specimen requisition ordered. ??Separate Pathology report to follow Anthony Hamlin MD PATHOLOGY/CYTOLOGY O CEE Performing Organization Address [facility] Co de Phone Number [facility] [place] [address] * Specimen to Pathology (01/20/2024 10:48 AM EST) AP Specimen 01/20/2024 10:4 8 AM EST 01/20/2024 10:48 AM EST Narrative [facility] - 01/20/2024 10:48 AM EST Specimen requisition ordered. ??Separate Pathology report to follow Anthony Hamlin MD PATHOLOGY/CYTOLOGY O CEE [facility] [place] [address] * Specimen to Pathology (01/20/2024 10:48 AM EST) AP Specimen 01/20/2024 10:4 8 AM EST 01/20/2024 10:48 AM EST Narrative [facility] - 01/20/2024 10:48 AM EST Specimen requisition ordered. ??Separate Pathology report to follow Anthony Hamlin MD PATHOLOGY/CYTOLOGY O CEE Performing Organization Address City/[facility]/[place] [address] * Specimen to Pathology (01/20/2024 10:48 AM EST) AP Specimen 01/20/2024 10:4 8 AM EST 01/20/2024 10:48 AM EST Narrative [facility] - 01/20/2024 10:48 AM EST Specimen requisition ordered. ??Separate Pathology report to follow Anthony Hamlin MD PATHOLOGY/CYTOLOGY O CEE Performing Organization Address [facility] [place] [address] * Specimen to Pathology (01/20/2024 10:48 AM EST) AP Specimen 01/20/2024 10:4 8 AM EST 01/20/2024 10:48 AM EST Narrative [facility] - 01/20/2024 10:48 AM EST Specimen requisition ordered. ??Separate Pathology report to follow Anthony Hamlin MD PATHOLOGY/CYTOLOGY O CEE Performing Organization Address [facility] Co de Phone Number [facility] [place] [address] * Specimen to Pathology (01/20/2024 10:48 AM EST) AP Specimen 01/20/2024 10:4 8 AM EST 01/20/2024 10:48 AM EST Narrative [facility] - 01/20/2024 10:48 AM EST Specimen requisition ordered. ??Separate Pathology report to follow Anthony Hamlin MD PATHOLOGY/CYTOLOGY O CEE Performing Organization Address City/[facility] [place] [address] * Surgical Pathology Report (01/20/2024 10:24 AM EST) Final Diagnosis [id number] ? Location: 4T; EA12; A The signing [...] Dilip Verified: ??01/29/2024 12:04 ??Pathologist Performed at: ??-[facility] Dept. of Pathology, [place] [address] Fire Sprinkler Inspector: Joana Soler MD, FCAP, ??CLIA Certificate: [id number] SPECIMEN(S) SUBMITTED A - right colon, biopsy [...] EST Anthony Hamlin MD PATHOLOGY/CYTOLOGY O RDERABLES [facility] [place] [address] [facility] [place] [address] * POCT Glucose (01/20/2024 10:05 AM EST) Glucose, POC 114 65 - 199 mg/dL [facility] Comment: Supplemental ranges: <140 mg/dL before meals <180 mg/dL all other times of the day Blood 01/20/2024 10:0 5 AM EST 01/20/2024 10:05 AM EST Anthony Hamlin MD POINT OF CARE TEST O RDERABLES [facility] [place] [address] * POCT Fingerstick Glucose (01/20/2024 10:05 AM EST) Glucose, POC 114 60 - 199 mg/dl 01/20/2024 10:0 5 AM EST Anthony Hamlin MD POINT OF CARE TEST O RDERABLES * COLONOSCOPY (01/20/2024 10:01 AM EST) COLONOSCOPY [facility] Endoscopy Procedure Date: 01/20/2024 10:01 AM ? Patient Name: Brian Rodriguez ? N: [id number] ? Date of : 1950 ? Age: 73 ? Order #: [id number] ? Instrument Name: [id number] ? Procedure: ? Colonoscopy Indications: ? Follow-up [...] ? physician, the nurse and the ? solar maintenance technician in the pre-procedure ? area in [...] 10:0 1 AM EST Deacon Watters TITLE ONE TEACHER GENERAL SURGICAL O RDERABLES PROVATION documented [...] RN) documented in this encounter Care Teams [employer] Team Member Relationship Specialty Start Date End Date Deacon Watters APRN [address] [place] [address] [address] [place] [address] PCP - General Family Medicine 02/17/22 documented as of this encounter
--- OUTSIDE RECORDS SUMMARY | 2024-07-27 13:37 | XMS_ITS | Encounter Summary ---
[place] [address] Care Team Providers Care Assembler Molded Frames Name Role Phone Deacon Watters APRN Primary Care Provider +1- [phone] Encounter Details Date Type Department Care Team (Late st Contact Info) Description 12/07/2023 Telephone [place] [phone] Estela Phillips Social History Tobacco Use Types [...] - 12/07/2023 10:47 AM EST Brian Rodriguez [id number] Diagnosis/Indication: UC surveillance Please review patient chart [...] your procedure. Who will likely be your intermodal owner operator truck driver for the procedure? *Please Verify [...] 9:00 AM EDT Office [place] [phone] Dion Barlow MD [facility] [place] [address] 09/01/2024 9:40 AM EDT Office Visit Cardiology at [address] [phone] Franky Shaver MD [facility] [place] [address] 09/01/2024 11:20 AM EDT Office Visit Dermatology at [facility] [address] [place] [address] Gómez Mercer MD [facility] DR [place] [address] 09/21/2024 2:45 PM EDT Office Visit [place] [address] Trung Hoyos MD [facility] [address] documented as of this encounter Visit Diagnoses Not on filedocumented in this encounter Care Teams Assembler Molded Frames Relationship Specialty Start Date End Date Deacon Watters APRN [address] [place] [address] PCP - General Family Medicine 02/17/22 documented as of this encounter
--- OUTSIDE RECORDS SUMMARY | 2024-07-27 13:37 | XMS_ITS | Encounter Summary ---
[place] [address] Care Team Providers Care Booking Police Officer Name Role Phone Deacon Watters APRN Primary Care Provider +1- [phone] Encounter Details Date Type Department Care Team (Latest Contact Info) Description 06/06/2024 12:56 PM EDT - 06/06/2024 11:59 PM EDT Hospital [place] [address] Left sided colitis without complications Discharge Disposition: [...] 9:00 AM EDT Office Visit [place] [address] Dion Barlow MD [facility] [place] [address] 09/01/2024 9:40 AM EDT Office Visit Cardiology at [address] [phone] Franky Shaver MD [facility] [place] [address] 09/01/2024 11:20 AM EDT Office Visit Dermatology at [place] [address] [place] [phone] Gómez Mercer MD [facility] [place] [address] 09/21/2024 2:45 PM EDT Office Visit [facility] [place] [phone] Trung Hoyos MD [facility] [place] [address] documented as of this encounter Procedures Procedure Name Priority Date/Time Associated Diagnosis Comments HC C. DIFF QUIK CHEK ANTIGEN Routine 06/06/2024 5:30 PM EDT Left sided colitis without complications CALPROTECTIN,STOOL Routine 06/06/2024 5: 30 PM EDT Left sided colitis without complications documented in this encounter Results * (ABNORMAL) Calprotectin, Stool (06/06/2024 5:30 PM EDT) Calprotectin, Stool 112(H) <=79 mcg/g [facility] Comment: Calprotectin Concentration ? Interpretation ? < 80 mcg/g ?Normal ? 80 ? 160 mcg/g ?Borderline ? >160 mcg/g ?Elevated Stool 06/06/2024 5:30 PM EDT 06/07/2024 1:07 PM EDT Narrative Resulting Agency Comment Spec In Lab Marcelle Weinberg CHILD CARE CENTRE MANAGER BODY FLUIDS AND S TOOLS ORDERABLES Performing Organization Address [facility] Co de Phone Number [facility] [place] [address] * C. Difficile Screen (06/06/2024 5:30 PM [...] Agency Comment Spec In Lab Marcelle Weinberg CHILD CARE CENTRE MANAGER MICROBIOLOGY - GE NERAL ORDERABLES Performing Organization Address [facility] Co de Phone Number [facility] [place] [address] documented in this encounter Visit Diagnoses Diagnosis Left sided colitis without complications Left sided ulcerative (chronic) colitis documented in this encounter Care Teams Booking Police Officer Relationship Specialty Start Date End Date Deacon Watters APRN [address] [place], [place] [address] [address] [place] [address] PCP - General Family Medicine 02/17/22 documented as of this encounter
--- OUTSIDE RECORDS SUMMARY | 2024-07-27 13:37 | XMS_ITS | Encounter Summary ---
Author Organization [facility] Address [facility] [place] [address] Care Team Providers Care Jet Man Name Role Phone Duong Deacon Wells APRN Primary Care Provider +1- [phone] Encounter Details Date Type Department Care Team (Latest Contact Info) Description 12/07/2023 8:00 AM EST Office [place] [address] Dion Barlow MD [facility] [place] [address] Left sided colitis without complications Social History [...] the next approximately eight weeks, please call [phone] to schedule the exam. 5. Repeat routine labs today. 6. Follow-up at the time of colonoscopy and in the office with Farideh Weinberg APRN in about 6-8 months. documented in this encounter Progress Notes * Dion Barlow MD - 12/07/2023 8:00 AM EST Images from the original note were not included. [facility] ESTABLISHED PATIENT VISIT Patient Active Problem List Diagnosis Ulcerative colitis Overview Note: Colonoscopy 04/08/10 (Dr. Gomes [facility]) - inflammation only within the rectum and sigmoid; extent of the exam was to the hepatic flexure; biopsies proximal to the sigmoid nl Repeat exam 11/27/11 ([facility] mildly active colitis in the sigmoid colon [...] ascending colon. Several HPs and one TA. [place] 03/2022 - [place] 1 limited to rectosigmoid, [...] bladder. Was referred to his urologist at [facility]. He reports that he has [...] varicosities in both legs HEENT: PERRL, EOMI, LAY OUT TECHNICIAN and OP clear without ulceration or lesions. LUNGS: Clear to auscultation bilaterally. COR: Regular, normal S1 and S2 without murmurs ABD: Normal active bowel sounds. Soft and non-distended. Mild tenderness to deep palpation in the left lower quadrant more than the right lower quadrant EXT: Trace bilateral edema. Laboratory studies, imaging, and procedures (my review of prior records): Labs reviewed from [facility] 01/2023. CBC stable. Creatinine 1.6. [...] neighbor. He is to follow-up with his excellence specialist, Deacon Watters APRN, in early December. [...] the next approximately 8 weeks, please call [phone] to schedule the exam. 5. Repeat routine labs today. 6. Follow-up at the time of colonoscopy and in the office with Farideh Weinberg APRN in about 6-8 months. Davina Barlow MD Neuroscience Director Nabobbin doffer Co-Director, [facility] Section of Gastroenterology [place] [address] documented in this encounter Plan of Treatment Upcoming Encounters Date Type Department Care Team (Late st Contact Info) Description 08/15/2024 9:00 AM EDT Office [place] [address] Dion Barlow MD [facility] [place] [address] 09/01/2024 9:40 AM EDT Office Visit Cardiology at [address] [place] [phone] Franky Shaver MD [facility] [place] [address] 09/01/2024 11:20 AM EDT Office Visit Dermatology at [facility] [address] [place] [phone] Gómez Mercer MD [facility] [place] [address] 09/21/2024 2:45 PM EDT Office Visit [facility] [place] [phone] Trung Hoyos MD [facility] [place] [address] Scheduled Orders Name Type Priority Associated Diagnoses [...] 8:53 AM EST) Neutrophil % 70.6 % [facility] Neutrophil Absolute 4.29 1.70 - 6.10 x10(3)/[facility] Lymph % 20.4 % [facility] Lymphocytes Abs 1.2 0.9 - 3.2 x10(3)/[facility] Monocyte % 5.9 % [facility] Monocyte Abs 0.4 0.3 - 0.9 x10(3)/[facility] Eos % 2.1 % [facility] Eosinophils Abs 0.1 0.0 - 0.4 x10(3)/[facility] Basophil % 0.7 % [facility] Baso Absolute 0.0 0.0 - 0.1 x10(3)/[facility] Immature Gran % 0.30 % [facility] Comment: Immature granulocytes(IG's)percentage and absolute count will include metamyelocytes, myelocytes, and promyelocytes. Blood smears from CBCs yielding IG's will be scanned manually for concordance. If this scan disagrees with the automated IG or if promyelocytes are noted, a manual differential will be performed. Immature Gran Absolute 0.02 0.00 - 0.04 x10(3)/[facility] Blood 12/07/2023 8:53 AM EST 12/07/2023 9:03 AM EST Narrative Resulting Agency Comment Spec In Lab L Karthik Barlow MD HEMATOLOGY ORDERABLE S [facility] [place] [address] * (ABNORMAL) Hemogram (12/07/2023 8:53 AM EST) White Blood Cell 6.1 4.0 - 9.5 x10(3)/mc L [facility] Red Blood Cell 3.87(L) 4.58 - 5.54 x10(6)/mc L [facility] Hemoglobin 12.8(L) 13.7 - 16.5 g/dL [facility] Hematocrit 37.5(L) 40.5 - 48.5 % [facility] Mean Cell Volume 96.9(H) 82.9 - 93.1 fL [facility] Mean Cell Hemoglobin 33.1(H) 27.5 - 32.1 pg [facility] Mean Cell Hemoglobin Concentration 34.1 32.0 - 35.7 g/dL [facility] Platelet 199 145 - 357 x10(3)/mc L [facility] RDW Standard Deviation 44.2 36.0 - 45.0 fL [facility] RDW coefficient of variation 12.6 11.4 - 13.8 % [facility] Mean Platelet Volume 11.2 7.6 - 12.9 fL [facility] NRBC% auto 0.0 % [facility] NRBC Absolute 0.000 0.000 - 0.000 x10(3)/[facility]AT[facility] Blood 12/07/2023 8:53 AM EST 12/07/2023 9:03 AM EST Narrative Resulting Agency Comment Spec In Lab L Karthik Barlow MD HEMATOLOGY ORDERABLE S [facility] [place] [address] * CRP, acute inflammation (12/07/2023 8:53 AM EST) C-Reactive Protein <3.0 <=4.9 mg/L [facility] Blood 12/07/2023 8:53 AM EST 12/07/2023 9:03 AM EST Narrative Resulting Agency Comment Spec In Lab L Karthik Barlow MD CHEMISTRY ORDERABLES [facility] [place] [address] * (ABNORMAL) Comprehensive metabolic panel (non-fasting) (12/07/2023 8:53 AM EST) Glucose 140 65 - 199 mg/dL [facility] Comment:Diabetes: >=200 mg/d L plus symptoms Blood Urea Nitrogen 12 10 - 20 mg/dL [facility] Creatinine 1.05 0.80 - 1.50 mg/dL [facility] Sodium 144 135 - 145 mmol/L [facility] Potassium 4.0 3.5 - 5.0 mmol/L [facility] Comment: Please note: ??Patients with WBC >100,000 may have falsely elevated Potassium levels. ??For accurate Potassium quantification in these patients send serum separator tube (gold top) for subsequent determinations. ??Contact the Clinical Chemistry Laboratory if there are any questions. Chloride 109(H) 98 - 107 mmol/L [facility] Carbon Dioxide 24 22 - 31 mmol/L [facility] Anion Gap 11 5 - 15 mmol/L [facility] Calcium 9.5 8.5 - 10.5 mg/dL [facility] Protein, Total 7.8 6.1 - 8.0 g/dL [facility] Albumin 4.2 3.2 - 5.2 g/dL [facility] Aspartate Aminotransferase 13 0 - 39 unit/L [facility] Alanine Aminotransferase 15 0 - 55 unit/L [facility] Alkaline Phosphatase 77 40 - 130 unit/L [facility] Bilirubin, Total 0.4 0.2 - 1.3 mg/dL [facility] Est Glomerular Filtration Rate 74 >=60 mL/min/1. 73 m?? [facility] Comment: This patient's estimated GFR was [...] Lab L Karthik Barlow [place] [address] documented in this encounter Visit Diagnoses Diagnosis Left sided colitis without complications Left sided ulcerative (chronic) colitis documented in this encounter Care Teams Jet Man Relationship Specialty Start Date End Date Deacon Watters, POSTAGE MACHINE OPERATOR [address] [place] [address] PCP - General Family Medicine 02/17/22 documented as of this encounter
--- OUTSIDE RECORDS SUMMARY | 2024-07-27 13:37 | XMS_ITS | Encounter Summary ---
Author Organization [facility] Address [facility] [place] [address] Care Team Providers Care Attorney Law Clerk Name Role Phone DuongVeliakip Wells APRN Primary Care Provider +1- [phone] Encounter Details Date Type Department Care Team (Late st Contact Info) Description 03/02/2024 2:45 PM EDT Office Visit Dermatology at [facility] [address] [place] [address] Matti Bland MD [facility] DR EDDIE [place] [address] Visit for suture removal Social History Tobacco [...] 2. Follow up with referring provider or learning solutions specialist for skin exams. 3. Follow up with Dr. Keller: as needed Note initiated and signed by Inge Forte LPN documented in this encounter Plan of Treatment Upcoming Encounters Date Type Department Care Team (Late st Contact Info) Description 08/15/2024 9:00 AM EDT Office [place] [address] Dion Barlow MD [facility] [place] [address] 09/01/2024 9:40 AM EDT Office Visit Cardiology at [address] [phone] Franky Shaver MD [facility] [place] [address] 09/01/2024 11:20 AM EDT Office Visit Dermatology at [facility] [address] [place] [phone] Gómez Mercer MD [facility] DR EDDIE [place] [address] 09/21/2024 2:45 PM EDT Office Visit [facility] [place] [phone] Trung Hoyos MD [facility] [place] [address] documented as of this encounter Visit Diagnoses Diagnosis Visit for suture removal Encounter for removal of sutures documented in this encounter Care Teams Attorney Law Clerk Relationship Specialty Start Date End Date Deacon Watters, JAZMINE [address] [place] [address] PCP - General Family Medicine 02/17/22 documented as of this encounter
--- OUTSIDE RECORDS SUMMARY | 2024-07-27 13:37 | XMS_ITS | Encounter Summary ---
Author Organization [facility] Address [facility] [place] [address] Care Team Providers Care Infant Caregiver Name Role Phone Deacon Watters APRN Primary Care Provider +1- [phone] Encounter Details Date Type Department Care Team (Late st Contact Info) Description 06/29/2024 [place] [address] Social History Tobacco Use Types Packs/Day Years Used Date Smoking Tobacco: Former Cigarettes 4 30 1 12/01/1961 - 10/01/1992 Smokeless Tobacco: Former Chew Comments:Denies vaping Alcohol Use Standard Drinks/Week Comments Yes 0 (1 standard drink = 0.6 oz pur e alcohol) twice a year [facility] Utilities Answer Date Recorded In the [...] any time in the past 12 m [facility], were you homeless or living in a custodial (including now)? No 07/01/2024 IPV Inpatient Questions [...] 9:00 AM EDT Office [place] [address] Dion Barlow MD [facility] [place] [address] 09/01/2024 9:40 AM EDT Office Visit Cardiology at [address] [phone] Franky Shaver MD [facility] [place] [address] 09/01/2024 11:20 AM EDT Office Visit Dermatology at [facility] [address] [place] [address] Gómez Mercer MD [facility] [place] [address] 09/21/2024 2:45 PM EDT Office Visit [facility] [place] [address] Trung Hoyos MD [facility] [place] [address] documented as of this encounter Procedures Procedure Name Priority Date/Time Associated Diagnosis Comments MISC EXTERNAL CARDIOLOGY RESULT Routine 06/29/2024 4:33 PM EDT documented in this encounter Results * External Cardiology Result (06/29/2024 4:33 PM EDT) Anatomical Region Laterality Modality Other Historical Provider EXTERNAL CARDIOLO GY RESULT documented in this encounter Visit Diagnoses Not on filedocumented in this encounter Care Teams Infant Caregiver Relationship Specialty Start Date End Date Deacon Watters, JAZMINE [address] [place] [address] PCP - General Family Medicine 02/17/22 documented as of this encounter
--- OUTSIDE RECORDS SUMMARY | 2024-07-27 13:37 | XMS_ITS | Encounter Summary ---
Author Organization [facility] [place] [address] Care Team Providers Care Marriage Performer Name Role Phone Deacon Watters Priscilla LUCERO Primary Care Provider +1- [phone] Reason for Visit * Reason Comments Medication Refill Encounter Details Date Type Department Care Team (Late st Contact Info) Description 01/11/2024 Refill [place] [address] [facility] DR GASTROENTEROLOG[place] [address] Social History Tobacco Use Types Packs/Day Years [...] 9:00 AM EDT Office [place] [phone] Dion Barlow MD [facility] DR GASTROENTEROLOGY [place] [address] 09/01/2024 9:40 AM EDT Office Visit Cardiology at [address] [place] [address] [facility] CARDIOLOG[place] [address] 09/01/2024 11:20 AM EDT Office Visit Dermatology at [facility] [address] [place] [address] [address]ómez Mercer MD [facility] DR EDDIE SANCHEZ-DERMATOLOG[place] [address] 09/21/2024 2:45 PM EDT Office Visit [facility] [place] [phone] Trung Hoyos MD [facility] PAIN MANAGEMENT [place] [address] documented as of this encounter Visit Diagnoses Not on filedocumented in this encounter Care Teams Marriage Performer Relationship Specialty Start Date End Date Deacon Watters, LOGISTICS ANALYST [address] [facility] [address] [facility] [facility] [place] [address] PCP - General Family Medicine 02/17/22 documented as of this encounter
--- OUTSIDE RECORDS SUMMARY | 2024-07-27 13:37 | XMS_ITS | Encounter Summary ---
Author Organization [facility] [place] [address] Care Team Providers Care Nature Photographer Name Role Phone Deacon Watters APRN Primary Care Provider +1- [phone] Encounter Details Date Type Department Care Team (Late st Contact Info) Description 11/20/2022 Telephone [place] [address] Jarret Roa RN Social History Tobacco Use [...] AM EDT Office Visit [place] [address] Dion Barlow MD [facility] [place] [address] 09/01/2024 9:40 AM EDT Office Visit Cardiology at [address] [place] [address] Franky Shaver MD [facility] [place] [address] 09/01/2024 11:20 AM EDT Office Visit Dermatology at [facility] [address] [place] [address] Gómez Mercer MD [facility] [place] [address] 09/21/2024 2:45 PM EDT Office Visit [facility] [place] [address] Trung Hoyos MD [facility] [place] [address] documented as of this encounter Visit Diagnoses Not on filedocumented in this encounter Care Teams Nature Photographer Relationship Specialty Start Date End Date Deacon Watters APRN [address] [place] [address] [address] [place] [address] PCP - General Family Medicine 02/17/22 documented as of this encounter
--- OUTSIDE RECORDS SUMMARY | 2024-07-27 13:37 | XMS_ITS | Encounter Summary ---
Author Organization [facility] Address [facility] [place] [address] Care Team Providers Care Public Information Relations Manager Name Role Phone DuongDeacon Priscilla LUCERO Primary Care Provider +1- [phone] Encounter Details Date Type Department Care Team [...] AM EDT Office Visit [place] [address] Dion Barlow MD [facility] [place] [address] 09/01/2024 9:40 AM EDT Office Visit Cardiology at [address] [phone] Franky Shaver MD [facility] [place] [address] 09/01/2024 11:20 AM EDT Office Visit Dermatology at [facility] [address] [place] [address] Gómez Mercer MD [facility] DR [place] [address] 09/21/2024 2:45 PM EDT Office Visit Pain and Spine Center at [facility] [place] [address] Trung Hoyos MD [facility] [place] [address] documented as of this encounter Visit Diagnoses Not on filedocumented in this encounter Care Teams Public Information Relations Manager Relationship Specialty Start Date End Date Deacon Watters, JAZMINE [address] [place] [address] PCP - General Family Medicine 02/17/22 documented as of this encounter
--- OUTSIDE RECORDS SUMMARY | 2024-07-27 13:37 | XMS_ITS | Encounter Summary ---
Author Organization [facility] Address [facility] [place] [address] Care Team Providers Care Iron Cutter Name Role Phone DuongDeacon Priscilla LUCERO Primary Care Provider +1- [phone] Encounter Details Date Type Department Care Team [...] 9:00 AM EDT Office [place] [address] Dion Barlow MD [facility] [place] [address] 09/01/2024 9:40 AM EDT Office Visit Cardiology at [address] [phone] Franky Shaver MD [facility] [place] [address] 09/01/2024 11:20 AM EDT Office Visit Dermatology at [facility] [address] [place] [address] Gómez Mercer MD [facility] DR EDDIE [place] [address] 09/21/2024 2:45 PM EDT Office Visit Pain and Spine Center at [facility] [place] [address] Trung Hoyos MD [facility] [place] [address] documented as of this encounter Visit Diagnoses Not on filedocumented in this encounter Care Teams Iron Cutter Relationship Specialty Start Date End Date Deacon Watters, JAZMINE [address] [facility] [facility] [place] [address] PCP - General Family Medicine 02/17/22 documented as of this encounter
--- OUTSIDE RECORDS SUMMARY | 2024-07-27 13:37 | XMS_ITS | Encounter Summary ---
Author Organization [facility] Address [facility] [place] [address] Care Team Providers Care Almond Blancher Hand Name Role Phone Deacon Watters APRN Primary Care Provider +1- [phone] Reason for Referral * Consultation (Routine) - Closed Specialty Diagnoses / Procedures Referred By Perri t Referred To Contact Dermatology Diagnoses Basal cell carcinoma (BCC), unspecified site Becca Villegas APRN [address] [place] [address] [place] [address] Kingsley Finn MD [facility] DR EDD[place] [address] Referral ID Status Reason Start Date Expiration Date V isits Requested Visits Authorized [id number] Closed Consult, Test & Treat PCP Updated and/or Approved 01/04/2024 01/03/2025 1 1 Encounter Details Date Type Department Care Team (Late st Contact Info) Description 01/04/2024 Transcribe Orders eDH Incoming Referrals [phone] Becca Villegas [address] [place], [place] [id number] Basal cell carcinoma (BCC), unspecified site (Primary [...] 9:00 AM EDT Office Visit [place] [address] Dion Barlow MD [facility] [place] [address] 09/01/2024 9:40 AM EDT Office Visit Cardiology at [address] [phone] Franky Shaver MD [facility] [place] [address] 09/01/2024 11:20 AM EDT Office Visit Dermatology at [address] [place] [address] Gómez Mercer MD [facility] DR EDD[place] [address] 09/21/2024 2:45 PM EDT Office Visit [facility] [place] [address] Trung Hoyos MD [facility] [place] [address] Scheduled Referrals Name Type Priority Associated Diagnoses Orde r Schedule Referral to Dermatology Outpatient Referral Routine Basal cell carcinoma (BCC), unspecified site Ordered: 01/04/2024 documented as of this encounter Visit Diagnoses Diagnosis Basal cell carcinoma (BCC), unspecified site- Primary documented in this encounter Care Teams Almond Blancher Hand Relationship Specialty Start Date End Date Deacon Watters, JAZMINE [address] [place] [address] PCP - General Family Medicine 02/17/22 documented as of this encounter
--- OUTSIDE RECORDS SUMMARY | 2024-07-27 13:37 | XMS_ITS | Encounter Summary ---
Author Organization [facility] Address [facility] [place] [address] Care Team Providers Care Roustabout Hand Name Role Phone Deacon Watters APRN Primary Care Provider +1- [phone] Reason for Visit * Consultation (Routine) - Closed Specialty Diagnoses / Procedures Referred By Perri t Referred To Contact Dermatology Diagnoses Basal cell carcinoma (BCC), unspecified site Becca Villegas APRN [address] [place] [address] [place] [address] Kingsley Finn MD [facility] [address] [place] [address] Referral ID Status Reason Start Date Expiration Date V isits Requested Visits Authorized [id number] Closed Consult, Test & Treat PCP Updated and/or Approved 01/04/2024 01/03/2025 1 1 Encounter Details Date Type Department Care Team (Late st Contact Info) Description 01/28/2024 2:00 PM EST Office Visit Dermatology at [facility] [address] [place] [address] Kingsley Finn MD [facility] DR [place] [address] Basal cell carcinoma of right [...] and follow up with his or her cement rubber or other skin provider. 5. Discussed avoiding [...] Reviewed and signed by: Kingsley Finn Dermatology [facility] documented in this encounter Plan of Treatment Upcoming Encounters Date Type Department Care Team (Late st Contact Info) Description 08/15/2024 9:00 AM EDT Office [place] [address] Dion Barlow MD [facility] [place] [address] 09/01/2024 9:40 AM EDT Office Visit Cardiology at [address] [address] Franky Shaver MD [facility] [place] [address] 09/01/2024 11:20 AM EDT Office Visit Dermatology at [facility] [address] [place] [address] Gómez Mercer MD [facility] DR [place] [address] 09/21/2024 2:45 PM EDT Office Visit [facility] [place] [address] Trung Hoyos MD [facility] [place] [place] [address] Scheduled Referrals Name Type Priority Associated Diagnoses Orde r Schedule Referral to Dermatology Outpatient Referral Routine Basal cell carcinoma (BCC), unspecified site Ordered: 01/04/2024 documented as of this encounter Visit Diagnoses Diagnosis Basal cell carcinoma of right side of nose Basal cell carcinoma of skin of other and unspecified parts of face documented in this encounter Care Teams Roustabout Hand Relationship Specialty Start Date End Date Deacon Watters, SAW SETTER [address] [place] [address] PCP - General Family Medicine 02/17/22 documented as of this encounter
--- OUTSIDE RECORDS SUMMARY | 2024-07-27 13:37 | XMS_ITS | Encounter Summary ---
[place] [address] Care Team Providers Care Sample Prep Technician Name Role Phone Deacon Watters APRN Primary Care Provider +1- [phone] Reason for Referral * Consultation (Routine) - Closed Specialty Diagnoses / Procedures Referred By Contwillard t Referred To Contact Pain and Spine Center Diagnoses Cervicalgia Other chronic pain chronic neck pain/MRI 10/27/23 @ [facility] Deacon Watters APRN [address] [place] [address] [facility] [place] [address] Referral ID Status Reason Start Date Expiration Date V isits Requested Visits Authorized [id number] Closed Consult, Test & Treat PCP Updated and/or Approved 11/11/2023 05/10/2024 1 1 Encounter Details Date Type Department Care Team (Late st Contact Info) Description 11/18/2023 Transcribe Orders eD Incoming Referrals [phone] Deacon Watters APRN [address] [place], [place] [address] Cervicalgia; Other chronic pain Social History Tobacco [...] 9:00 AM EDT Office Visit [place] [address] Dion Barlow MD [facility] [address] 09/01/2024 9:40 AM EDT Office Visit Cardiology at [address] [address] Franky Shaver MD [facility] [place] [address] 09/01/2024 11:20 AM EDT Office Visit Dermatology at [place] [address] [place] [address] Gómez Mercer MD [facility] DR [place] [address] 09/21/2024 2:45 PM EDT Office Visit [facility] [place] [address] Trung Hoyos MD [facility] [place] [address] Scheduled Referrals Name Type Priority Associated Diagnoses Orde r Schedule Referral to Spine Center Outpatient Referral Routine Cervicalgia Other chronic pain Ordered: 11/18/2023 documented as of this encounter Visit Diagnoses Diagnosis Cervicalgia Other chronic pain documented in this encounter Care Teams Sample Prep Technician Relationship Specialty Start Date End Date Deacon Watters, MANUAL ARTS THERAPIST [address] [place] [address] PCP - General Family Medicine 02/17/22 documented as of this encounter
--- OUTSIDE RECORDS SUMMARY | 2024-07-27 13:37 | XMS_ITS | Encounter Summary ---
Author Organization [facility] Address [facility] [place] [address] Care Team Providers Care Athlete Marketing Agent Name Role Phone DuongDeacon Priscilla LUCERO Primary Care Provider +1- [phone] Encounter Details Date Type Department Care Team [...] AM EDT Office Visit [place] [address] Dion Barlow MD [facility] [place] [address] 09/01/2024 9:40 AM EDT Office Visit Cardiology at [address] [phone] Franky Shaver MD [facility] [place] [address] 09/01/2024 11:20 AM EDT Office Visit Dermatology at [facility] [address] [place] [address] Gómez Mercer MD [facility] DR EDDIE [place] [address] 09/21/2024 2:45 PM EDT Office Visit Pain and Spine Center at [facility] [place] [address] Trung Hoyos MD [facility] [place] [address] documented as of this encounter Visit Diagnoses Not on filedocumented in this encounter Care Teams Athlete Marketing Agent Relationship Specialty Start Date End Date Deacon Watters, JAZMINE [address] [place] [address] PCP - General Family Medicine 02/17/22 documented as of this encounter
--- OUTSIDE RECORDS SUMMARY | 2024-07-27 13:37 | XMS_ITS | Encounter Summary ---
Author Organization [facility] Address [facility] [place] [address] Care Team Providers Care Process Safety Engineer Name Role Phone Deacon Watters APRN Primary Care Provider +1- [phone] Encounter Details Date Type Department Care Team (Latest Contact Info) Description 01/20/2024 9:28 AM EST - 01/20/2024 11:41 AM EST Hospital En[place] [address] Anthony Hamlin MD [facility] [place] [address] Discharge Disposition: Home Social History Tobacco Use [...] occurs, please contact your Doctor. Please call [phone] before 8pm Mon-Fri with problems, questions or concerns. If you call after 8pm or on weekends, call the Hospital at [phone] and ask to speak to the Roofer Metal manager zone and the first press operator will contact that person for you. When should you call for help? Call 482 anytime you think you may need emergency [...] any problems. Where can you learn more? [facility] View your After Visit Summary and more online at [email or web address] If you would like to provide [...] cost to you. Content Version: 12.2 ?? 2240-2115 [employer]. Care instructions adapted under license by [facility]. If you have questions about a medical condition or this instruction, always ask your healthcare professional. [employer] disclaims any warranty or liability for your [...] 9:00 AM EDT Office [place] [address] Dion Barlow MD [facility] [place] [address] 09/01/2024 9:40 AM EDT Office Visit Cardiology at [address] [phone] Franky Shaver MD [facility] [place] [address] 09/01/2024 11:20 AM EDT Office Visit Dermatology at [address] [phone] Gómez Mercer MD [facility] [place] [address] 09/21/2024 2:45 PM EDT Office Visit [place] [address] Trung Hoyos MD [facility] [place] [address] documented as of this encounter Procedures Procedure [...] Routine 01/20/2024 10:24 AM EST Colonoscopy, Biopsy ([id number]) 01/20/2024 10:09 AM EST Left sided colitis without complications POCT GLUCOSE Routine 01/20/2024 10:05 AM EST POCT FINGERSTICK GLUCOSE Routine 01/20/2024 10:05 AM EST COLONOSCOPY Routine 01/20/2024 10:01 AM EST documented in this encounter Results * Specimen to Pathology (01/20/2024 10:48 AM EST) AP Specimen 01/20/2024 10:4 8 AM EST 01/20/2024 10:48 AM EST Narrative [facility] - 01/20/2024 10:48 AM EST Specimen requisition ordered. ??Separate Pathology report to follow Anthony Hamlin MD PATHOLOGY/CYTOLOGY O CEE Performing Organization Address [facility] Co de Phone Number [facility] [place] [address] * Specimen to Pathology (01/20/2024 10:48 AM EST) AP Specimen 01/20/2024 10:4 8 AM EST 01/20/2024 10:48 AM EST Narrative [facility] - 01/20/2024 10:48 AM EST Specimen requisition ordered. ??Separate Pathology report to follow Anthony Hamlin MD PATHOLOGY/CYTOLOGY O CEE Performing Organization Address City/[facility]/ZIP Co de Phone Number [facility] [place] [address] * Specimen to Pathology (01/20/2024 10:48 AM EST) AP Specimen 01/20/2024 10:4 8 AM EST 01/20/2024 10:48 AM EST Narrative [facility] - 01/20/2024 10:48 AM EST Specimen requisition ordered. ??Separate Pathology report to follow Anthony Hamlin MD PATHOLOGY/CYTOLOGY O RDMELISSA Performing Organization Address City/[facility] [place] [address] * Specimen to Pathology (01/20/2024 10:48 AM EST) AP Specimen 01/20/2024 10:4 8 AM EST 01/20/2024 10:48 AM EST Narrative [facility] - 01/20/2024 10:48 AM EST Specimen requisition ordered. ??Separate Pathology report to follow Anthony Hamlin MD PATHOLOGY/CYTOLOGY O RDMELISSA Performing Organization Address [facility] Co de Phone Number [facility] [place] [address] * Specimen to Pathology (01/20/2024 10:48 AM EST) AP Specimen 01/20/2024 10:4 8 AM EST 01/20/2024 10:48 AM EST Narrative [facility] - 01/20/2024 10:48 AM EST Specimen requisition ordered. ??Separate Pathology report to follow Anthony Hamlin MD PATHOLOGY/CYTOLOGY O CEE Performing Organization Address [facility] Co de Phone Number [facility] [place] [address] * Specimen to Pathology (01/20/2024 10:48 AM EST) AP Specimen 01/20/2024 10:4 8 AM EST 01/20/2024 10:48 AM EST Narrative [facility] - 01/20/2024 10:48 AM EST Specimen requisition ordered. ??Separate Pathology report to follow Anthony Hamlin MD PATHOLOGY/CYTOLOGY O RDMELISSA Performing Organization Address City/[facility] Co de Phone Number [facility] [place] [address] * Surgical Pathology Report (01/20/2024 10:24 AM EST) Final Diagnosis [id number] ? Location: 4T; EA12; A The signing [...] Verified: ??01/29/2024 12:04 ??Pathologist Performed at: ??-[facility] Dept. of Pathology, [place] [address] Network Services Project Manager: Joana Soler MD, FCAP, ??CLIA Certificate: [id number] SPECIMEN(S) SUBMITTED A - right colon, biopsy [...] labeled F1. ??sns 01/29/2024 12:04 PM EST [facility] GI Biopsy 01/20/2024 10:2 4 [...] EST Anthony Hamlin MD PATHOLOGY/CYTOLOGY O RDERABLES [facility] [place] [address] [facility] [place] [address] * POCT Glucose (01/20/2024 10:05 AM EST) Glucose, POC 114 65 - 199 mg/dL [facility] Comment: Supplemental ranges: <140 mg/dL before meals <180 mg/dL all other times of the day Blood 01/20/2024 10:0 5 AM EST 01/20/2024 10:05 AM EST Anthony Hamlin MD POINT OF CARE TEST O RDERABLES [facility] [place] [address] * POCT Fingerstick Glucose (01/20/2024 10:05 AM EST) Glucose, POC 114 60 - 199 mg/dl 01/20/2024 10:0 5 AM EST Anthony Hamlin MD POINT OF CARE TEST O RDERABLES * COLONOSCOPY (01/20/2024 10:01 AM EST) COLONOSCOPY [facility] Endoscopy Procedure Date: 01/20/2024 10:01 AM ? Patient Name: Brian Rodriguez ? Date of : 1950 ? Age: 73 ? Order #: [id number] ? Instrument Name: [id number] ? Procedure: ? Colonoscopy Indications: ? Follow-up of left-sided chronic ? ulcerative colitis Providers: ? Anthony Hamlin, Danyell Doyle, ? Marcos Friedman Referring MD: ?Davina Cárdenas ? MD Cani Medicines: ? Midazolam 4 mg IV, Fentanyl [...] ? physician, the nurse and the ? robotics technician in the pre-procedure ? area in [...] 01/20/2024 10:0 1 AM EST Deacon Watters DIESEL ENGINE ASSEMBLER GENERAL SURGICAL O RDERABLES [employer] documented in [...] RN) documented in this encounter Care Teams Process Safety Engineer Relationship Specialty Start Date End Date Deacon Watters, JAZMINE [address] [place] [address] [address] [place] [address] PCP - General Family Medicine 02/17/22 documented as of this encounter
--- OUTSIDE RECORDS SUMMARY | 2024-07-27 13:37 | XMS_ITS | Encounter Summary ---
Author Organization [facility] [place] [address] Care Team Providers Care Corporate Events Director Name Role Phone Deacon Watters Priscilla LUCERO Primary Care Provider +1- [phone] Reason for Visit * Reason Comments Medication Refill Encounter Details Date Type Department Care Team (Late st Contact Info) Description 02/19/2024 Refill [place] [address] Dion Barlow MD [facility] [place] [address] Social History Tobacco Use Types Packs/Day Years [...] AM EDT Office Visit [place] [address] Dion Barlow MD [facility] [place] [address] 09/01/2024 9:40 AM EDT Office Visit Cardiology at [address] [place] [address] Franky Shaver MD [facility] [place] [address] 09/01/2024 11:20 AM EDT Office Visit Dermatology at [facility] [address] [place] [address] Gómez Mercer MD [facility] DR [place] [address] 09/21/2024 2:45 PM EDT Office Visit Pain and Spine Center at [place] [address] Trung Hoyos MD [facility] [place] [address] documented as of this encounter Visit Diagnoses Not on filedocumented in this encounter Care Teams Corporate Events Director Relationship Specialty Start Date End Date Deacon Watters, JAZMINE [address] [facility] [address] [place] [address] PCP - General Family Medicine 02/17/22 documented as of this encounter
--- OUTSIDE RECORDS SUMMARY | 2024-07-27 13:37 | XMS_ITS | Encounter Summary ---
Author Organization [facility] [place] [address] Care Team Providers Care Oxyhydrogen Welder Name Role Phone Deacon Watters APRN Primary Care Provider +1- [phone] Encounter Details Date Type Department Care Team (Late st Contact Info) Description 10/27/2023 Ancillary Procedure [place] [address] Deacon Watters APRN [address] [place], [place] [address] Social History Tobacco Use Types Packs/Day Years [...] AM EDT Office Visit [place] [address] Dion Barlow MD [facility] [place] [address] 09/01/2024 9:40 AM EDT Office Visit Cardiology at [address] [place] [address] Franky Shaver MD [facility] [place] [address] 09/01/2024 11:20 AM EDT Office Visit Dermatology at [facility] [address] [place] [address] Gómez Mercer MD [facility] [address] [place] [address] 09/21/2024 2:45 PM EDT Office Visit [facility] [place] [address] Trung Hoyos MD [facility] [place] [address] documented as of this encounter Procedures Procedure Name Priority Date/Time Associated Diagnosis Comments FILM LIBRARY STORAGE ONLY MR SPINE Routine 10/27/2023 12:00 AM EST documented in this encounter Results * Film Library- Storage Only MR Spine (10/27/2023 12:00 AM EST) Narrative [facility] - 11/11/2023 10:39 AM EST This exam is auto-finalizing. It's purpose is for storage only. Deacon Watters APRN IMG FILM LIBRARY O RDERABLES [place], [place] documented in this encounter Visit Diagnoses Not on filedocumented in this encounter Care Teams Oxyhydrogen Welder Relationship Specialty Start Date End Date Deacon Watters APRN [address] [place] [address] PCP - General Family Medicine 02/17/22 documented as of this encounter
--- OUTSIDE RECORDS SUMMARY | 2024-07-27 13:37 | XMS_ITS | Encounter Summary ---
[place] [address] Care Team Providers Care Director Of Content Marketing Name Role Phone Deacon Watters APRN Primary Care Provider +1- [phone] Encounter Details Date Type Department Care Team (Latest Contact Info) Description 06/07/2024 12:55 PM EDT - 06/07/2024 11:59 PM EDT Hospital [place] [address] Left sided colitis without complications Discharge Disposition: [...] by mouth daily. 90 tablet 3 11/22/2012 ketoconazole (Nizoral) 2 % CreamIndications:Tinea cruris Apply twice daily to affected areas on the groin 30 g 1 06/07/2024 07/26/2024 mupirocin (Bactroban) 2 % OintmentIndications:Vi sit for [...] 9:00 AM EDT Office [place] [address] Dion Barlow MD [facility] [place] [address] 09/01/2024 9:40 AM EDT Office Visit Cardiology at [address] [phone] Franky Shaver MD [facility] [place] [address] 09/01/2024 11:20 AM EDT Office Visit Dermatology at [address] [place] [address] Gómez Mercer MD [facility] [place] [address] 09/21/2024 2:45 PM EDT Office Visit [facility] [place] [address] Trung Hoyos MD [facility] [place] [address] documented as of this encounter Procedures Procedure [...] Comment Spec In Lab Marcelle Weinberg REMOTE CODERS MICROBIOLOGY - GE NERAL ORDERABLES Performing Organization Address [facility] [place] [facility]/[place] [address] * Campylobacter Antigen (06/07/2024 9:00 AM EDT) Campylobacter Ag Immunoassay Negative for Campylobacter Antigen [facility] Stool 06/07/2024 9:00 AM EDT 06/07/2024 1:32 PM EDT Narrative Resulting Agency Comment Spec In Lab Marcelle Weinberg REMOTE CODERS MICROBIOLOGY - GE NERAL ORDERABLES Performing Organization Address City/[facility]/ZIP Co de Phone Number [facility] [place] [phone] * Stool culture (06/07/2024 9:00 AM EDT) Stool Culture No enteric pathogens isolated [facility] Stool 06/07/2024 9:00 AM EDT 06/07/2024 1:32 PM EDT Narrative Resulting Agency Comment Spec In Lab Marcelle Weinberg REMOTE CODERS MICROBIOLOGY - GE NERAL ORDERABLES [facility] [place] [address] documented in this encounter Visit Diagnoses Diagnosis Left sided colitis without complications Left sided ulcerative (chronic) colitis documented in this encounter Additional Health Concerns Infection Onset Date Last Indicated Resolved Time Rule Out C. difficile 06/07/2024 06/06/20242023 2:27 PM EDT documented as of this encounter Care Teams Director Of Content Marketing Relationship Specialty Start Date End Date Deacon Watters APRN [address] [place] [address] [address] [place] [address] PCP - General Family Medicine 02/17/22 documented as of this encounter
--- OUTSIDE RECORDS SUMMARY | 2024-07-27 13:37 | XMS_ITS | Encounter Summary ---
Author Organization [facility] [place] [address] Care Team Providers Care Water Sander Name Role Phone Deacon Watters APRN Primary Care Provider +1- [phone] Reason for Visit * Reason Comments Neck Pain * Consultation (Routine) - Closed Specialty Diagnoses / Procedures Referred By Contac t Referred To Contact Pain and Spine Center Diagnoses Spondylosis of cervical region without myelopathy or radiculopathy Santiago Morales PA [facility] [place] [address] [facility] [place] [address] Referral ID Status Reason Start Date Expiration Date V isits Requested Visits Authorized [id number] Closed Pain Consult 04/06/2024 04/06/2025 1 1 Encounter Details Date Type Department Care Team (Latest Contact Info) Description 06/22/2024 8:00 AM EDT Office Visit [place] [address] Trung Hoyos MD [facility] [place] [address] Radiculopathy of cervical region (Primary Dx) Social History Tobacco Use Types Packs/Day Years Used Date Smoking Tobacco: Former Cigarettes 4 30 1 12/01/1961 - 10/01/1992 Smokeless Tobacco: Former Chew Comments:Denies vaping Alcohol Use Standard Drinks/Week Comments Yes 0 (1 standard drink = 0.6 oz pur e alcohol) twice a year [facility] Utilities Answer Date Recorded In [...] time in the past 12 m [facility], were you homeless or living in a alf (including now)? No 07/01/2024 IPV Inpatient Questions [...] from the original note were not included. [facility] Initial Consultation Note DOS: 06/22/24 : 1950 Brian Rodriguez is a 73 y.o. year old male who presents to the pain clinic today at the referral of: Santiago Morales PA [facility] [address] for consideration of treatment for his pain CC: Left-sided neck pain HPI: Brian Rodriguez prefers to be called Eduardo. He is alone today for this visit. He describes left-sided neck pain associated with some left hand weakness. 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 He indicated that he once fell over 50 feet onto his head holding his hard hat, injuring his neck, and crushing his right hand. He was taken to [facility] at that time. 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 Of note he helped build [facility] [employer] in the late or early He indicated he had a cortisone injection in his right shoulder which was helpful once. He had a possible lumbar epidural steroid injection at [facility] at least 25 years ago that helped. [...] 3.66) performed by Dion Osullivan MD at [facility] ENDOSCOPY PRO COLONOSCOPY, BIOPSY N/A 02/22/2019 COLONOSCOPY FLEXIBLE, WITH BX (WRVU 3.66) performed by Dion Osullivan MD at [facility] END[facility]COPY PRO COLONOSCOPY, BIOPSY N/A 03/28/2022 COLONOSCOPY FLEXIBLE, WITH BX (WRVU 3.66) performed by Mona Turner MD at [facility] ENDOSCOPY PRO COLONOSCOPY, BIOPSY N/A 01/20/2024 COLONOSCOPY FLEXIBLE, WITH BX (WRVU 3.56) performed by Anthony Hamlin MD at [facility] ENDOSCOPY PRO COLONOSCOPY, DIAGNOSTIC 11/27/2011 COLONOSCOPY, DIAGNOSTIC performed by Dion OSULLIVAN at [facility] END[facility]COPY PRO COLONOSCOPY, DIAGNOSTIC 07/13/2014 COLONOSCOPY, DIAGNOSTIC performed by Dion Osullivan MD at [facility] END[facility] PRO COLONOSCOPY, REMV LESN, SNARE N/A 02/22/2019 COLONOSCOPY, POLYPECTOMY, REMOVAL LESION BY SNARE (WRVU 4.67) performed by Dion Osullivan MD at [facility] END[facility]COPY PRO COLONOSCOPY, REMV LESN, SNARE N/A 02/26/2021 COLONOSCOPY, POLYPECTOMY, REMOVAL LESION BY SNARE (WRVU 4.67) performed by Dion Osullivan MD at [facility] END[facility]COPY PRO SIGMOIDOSCOPY, DIAGNOSTIC 03/16/2012 FLEXIBLE SIGMOIDOSCOPY performed by YUDI MALLOY at [facility] END[facility]COPY PRO UPPER GI ENDOSCOPY, DIAGNOSTIC N/A 04/28/2019 EGD, UPPER GI ENDOSCOPY performed by Iza Coates MD at [facility] UPPER GI ENDOSCOPY, EXAM 10/01/2012 UPPER GI ENDOSCOPY performed by Dion OSULLIVAN at [facility] FAMILY HISTORY: No family history on [...] of Motion -limited Special tests - Neurologic: building custodian - grossly intact Reflexes - 2+ and [...] the potential roles for physical therapy, the [facility] functional scientology program, and the [facility] active pain care service [employer] Reliefprogram. He expressed interest in the above and wished to consider prior to enrolling. Ross may follow-up in 2 - 3 months or on an as needed basis Thank you for allowing us the opportunity to participate in Brian's care. I spent 45 minutes in direct [id number] time, with 40 minutes counseling him regarding treatment options and addressing specific questions. Thank you for referring him to our clinic. Trung Hoyos MD, MS Banjo Repairer of Anesthesiology [facility] [address] [address] / [facility] CC: Santiago Morales PA [facility] [place] [phone] documented in this encounter Plan of Treatment Upcoming Encounters Date Type Department Care Team (Late st Contact Info) Description 08/15/2024 9:00 AM EDT Office [place] [address] Dion Osullivan MD [facility] [place] [address] 09/01/2024 9:40 AM EDT Office Visit Cardiology at [address] [phone] Franky Shaver MD [facility] [place] [address] 09/01/2024 11:20 AM EDT Office Visit Dermatology at [facility] [address] [place] [address] Gómez Mercer MD [facility] DR [facility] [place] [address] 09/21/2024 2:45 PM EDT Office Visit [place] [address] Trung Hoyos MD [facility] [place] [address] Scheduled Referrals Name Type Priority Associated Diagnoses Orde r Schedule Referral to Pain and Spine Center (Internal only) Outpatient Referral Routine Spondylosis of cervical region without myelopathy or radiculopathy Ordered: 04/06/2024 documented as of this encounter Visit Diagnoses Diagnosis Radiculopathy of cervical region- Primary Brachial neuritis or radiculitis nos documented in this encounter Care Teams Water Sander Relationship Specialty Start Date End Date Deacon Watters, CREATIVE SPECIALIST [address] [place] [address] PCP - General Family Medicine 02/17/22 documented as of this encounter
--- OUTSIDE RECORDS SUMMARY | 2024-07-27 13:37 | XMS_ITS | Encounter Summary ---
Author Organization [facility] Address [facility] [place] [address] Care Team Providers Care Business Systems Manager Name Role Phone Duong Deacon Wells APRN Primary Care Provider +1- [phone] Encounter Details Date Type Department Care Team [...] 9:00 AM EDT Office [place] [address] Dion Barlow MD [facility] [place] [address] 09/01/2024 9:40 AM EDT Office Visit Cardiology at [address] [phone] Franky Shaver MD [facility] [place] [address] 09/01/2024 11:20 AM EDT Office Visit Dermatology at [facility] [address] [place] [address] Gómez Mercer MD [facility] DR ED[place] [address] 09/21/2024 2:45 PM EDT Office Visit [place] [phone] Trung Hoyos MD [facility] [place] [address] documented as of this encounter Visit Diagnoses Not on filedocumented in this encounter Care Teams Business Systems Manager Relationship Specialty Start Date End Date Deacon Watters, JAZMINE [address] [place] [address] PCP - General Family Medicine 02/17/22 documented as of this encounter
--- OUTSIDE RECORDS SUMMARY | 2024-07-27 13:37 | XMS_ITS | Encounter Summary ---
[place] [address] Care Team Providers Care Radiographic Technologist Name Role Phone Duong Deacon Wells APRN Primary Care Provider +1- [phone] Encounter Details Date Type Department Care Team (Late st Contact Info) Description 02/12/2023 Telephone [place] [address] Kelly Castillo RN Social History Tobacco Use [...] local ER. He would likely go to [place] if this is the case. Will ask regular IBD team to f/u with him in the AM. documented in this encounter Plan of Treatment Upcoming Encounters Date Type Department Care Team (Late st Contact Info) Description 08/15/2024 9:00 AM EDT Office Visit [place] [phone] Dion Barolw MD [facility] [place] [address] 09/01/2024 9:40 AM EDT Office Visit Cardiology at [address] [place] [address] Franky Shaver MD [facility] [place] [address] 09/01/2024 11:20 AM EDT Office Visit Dermatology at [facility] [address] [place] [address] Gómez Mercer MD [facility] [address] 09/21/2024 2:45 PM EDT Office Visit [facility] [place] [phone] Trung Hoyos MD [facility] [place] [address] documented as of this encounter Visit Diagnoses Not on filedocumented in this encounter Care Teams Radiographic Technologist Relationship Specialty Start Date End Date Deacon Watters, JAZMINE [address] [place] [address] [address] [facility] [address] [place] [address] PCP - General Family Medicine 02/17/22 documented as of this encounter
--- OUTSIDE RECORDS SUMMARY | 2024-07-27 13:37 | XMS_ITS | Encounter Summary ---
Author Organization [facility] Address [facility] [address] Care Team Providers Care Grease Refiner Operator Name Role Phone Deacon Watters APRN Primary Care Provider +1- [phone] Encounter Details Date Type Department Care Team (Late st Contact Info) Description 06/29/2024 [place] [address] Ramakrishna Elliott MD [facility] [place] [address] Social History Tobacco Use Types Packs/Day Years [...] Date: 06/29/24 Referring Provider: William Patient Location: [facility] HPI: 74 yoM w/ PMHx of [...] tolerated - TTE - plan for [facility] Recommendations: Above recommendations were based on my discussion with Dr. briscoe; I have not personally interviewed or examined this patient. Advised to call the transfer center back with any changes in the patient condition. Ramakrishna Elliott MD Detective Automobile Section documented in this encounter Plan of Treatment Upcoming Encounters Date Type Department Care Team (Late st Contact Info) Description 08/15/2024 9:00 AM EDT Office [place] [address] Dion Barlow MD [facility] [place] [address] 09/01/2024 9:40 AM EDT Office Visit Cardiology at [address] [place] [address] Franky Shaver MD [facility] [place] [address] 09/01/2024 11:20 AM EDT Office Visit Dermatology at [facility] [address] [place] [phone] Gómez Mercer MD [facility] DR [place] [address] 09/21/2024 2:45 PM EDT Office Visit [facility] Spine Center at [place] [address] Trung Hoyos MD [facility] [place] [address] documented as of this encounter Visit Diagnoses Not on filedocumented in this encounter Care Teams Grease Refiner Operator Relationship Specialty Start Date End Date Deacon Watters, COPY READER [address] [place] [address] PCP - General Family Medicine 02/17/22 documented as of this encounter
--- OUTSIDE RECORDS SUMMARY | 2024-07-27 13:37 | XMS_ITS | Encounter Summary ---
Author Organization [facility] Address [facility] [place] [address] Care Team Providers Care Night Shift Supervisor Name Role Phone Duong Deacon Wells APRN Primary Care Provider +1- [phone] Reason for Visit * Reason Comments Rash Encounter Details Date Type Department Care Team (Late st Contact Info) Description 06/07/2024 1:20 PM EDT Office Visit Dermatology at [facility] [address] [place] [address] Gómez Mercer MD [facility] [address] Tinea cruris Social History Tobacco Use Types [...] weeks for Tinea Cruris []Note routed to field secretary []Recall placed in scheduling system [x]Appointment scheduled at checkout Scribe attestation: Danyell Anton [facility] has performed the documentation for this encounter inthe presence of and acting as a scribe for Gómez Mercer MD. I performed the above scribed service and agree with the accuracy of the documentation in this encounter. Reviewed and signed by: Gómez Mercer MD Dermatology [facility] Patient seen and evaluated with staff hydraulic jack adjuster: Maria G Padilla MD Dermatology [facility] * Maria G Padilla MD - 06/07/2024 [...] as documented. Maria G Padilla MD Staff Cattle Inspector Department of Dermatology [facility] documented in this encounter Plan of Treatment Upcoming Encounters Date Type Department Care Team (Late st Contact Info) Description 08/15/2024 9:00 AM EDT Office Visit [place] [address] Dion Barlow MD [facility] [place] [address] 09/01/2024 9:40 AM EDT Office Visit Cardiology at [address] [phone] Franky Shaver MD [facility] [place] [place] [address] 09/01/2024 11:20 AM EDT Office Visit Dermatology at [facility] [address] [place] [address] Gómez Mercer MD [facility] DR [place] [address] 09/21/2024 2:45 PM EDT Office Visit [place] [address] Trung Hoyos MD [facility] [place] [address] documented as of this encounter Visit Diagnoses Diagnosis Tinea cruris Dermatophytosis of groin and perianal area documented in this encounter Additional Health Concerns Infection Onset Date Last Indicated Resolved Time Rule Out C. difficile 06/07/2024 06/06/20242023 2:27 PM EDT documented as of this encounter Care Teams Night Shift Supervisor Relationship Specialty Start Date End Date Deacon Watters APRN [address] [place] [address] PCP - General Family Medicine 02/17/22 documented as of this encounter
--- OUTSIDE RECORDS SUMMARY | 2024-07-27 13:37 | XMS_ITS | Encounter Summary ---
Author Organization [facility] Address [facility] [place] [address] Care Team Providers Care Sheet Metal Worker Name Role Phone Deacon Watters APRN Primary Care Provider +1- [phone] Reason for Referral * Physical Therapy (Routine) - Closed Specialty Diagnoses / Procedures Referred By Contac t Referred To Contact Physical Therapy Diagnoses Spondylosis of cervical region without myelopathy or radiculopathy Santiago Morales PA [facility] [place] [address] Physical Therapy, [address] [place] [address] Referral ID Status Reason Start Date Expiration Date V isits Requested Visits Authorized [id number] Closed Evaluate and Treat 01/07/2024 07/05/2024 12 12 Reason for Visit * Reason Comments Neck Pain chronic neck pain/MR I 10/27/23 in [facility] * Consultation (Routine) - Closed Specialty Diagnoses / Procedures Referred By Contac t Referred To Contact Pain and Spine Center Diagnoses Cervicalgia Other chronic pain chronic neck pain/MRI 10/27/23 @ [facility] Deacon Watters APRN [address] [place] [address] [facility] [place] [address] Referral ID Status Reason Start Date Expiration Date V isits Requested Visits Authorized [id number] Closed Consult, Test & Treat PCP Updated and/or Approved 11/11/2023 05/10/2024 1 1 Encounter Details Date Type Department Care Team (Latest Contact Info) Description 01/07/2024 8:45 AM EST Office Visit [place] [address] Santiago Morales PA [facility] [place] [address] Spondylosis of cervical region without myelopathy or [...] [facility] for [facility]. Chief Complaint: Neck pain [...] light touch. Motor exam shows 4/5 left lap machine tender strength; otherwise 5/5 throughout. Negativehoffman bilaterally. Imaging: [...] neck pain. He has some left hand lap machine tender weakness but otherwise is neuro intact. Imaging [...] 9:00 AM EDT Office [place] [address] Dion Barlow MD [facility] [place] [address] 09/01/2024 9:40 AM EDT Office Visit Cardiology at [address] [address] Franky Shaver MD [facility] [place] [address] 09/01/2024 11:20 AM EDT Office Visit Dermatology at [address] [place] [address] Gómez Mercer MD [facility] [place] [address] 09/21/2024 2:45 PM EDT Office Visit [place] [address] Trung Hoyos MD [facility] [place] [address] Scheduled Referrals Name Type Priority Associated Diagnoses Orde r Schedule Referral to Physical Therapy Outpatient Referral Routine Spondylosis of cervical region without myelopathy or radiculopathy Ordered: 01/07/2024 documented as of this encounter Visit Diagnoses Diagnosis Spondylosis of cervical region without myelopathy or radiculopathy Cervical spondylosis without myelopathy documented in this encounter Care Teams Sheet Metal Worker Relationship Specialty Start Date End Date Deacon Watters APRN [address] [place] [address] [address] [facility] [address] [place] [address] PCP - General Family Medicine 02/17/22 documented as of this encounter
--- OUTSIDE RECORDS SUMMARY | 2024-07-27 13:37 | XMS_ITS | Encounter Summary ---
Author Organization [facility] [place] [address] Care Team Providers Care Photographic Reproduction Technician Name Role Phone Deacon Watters APRN Primary Care Provider +1- [phone] Reason for Referral * Consultation (Routine) - Closed Specialty Diagnoses / Procedures Referred By Contac t Referred To Contact Pain and Spine Center Diagnoses Spondylosis of cervical region without myelopathy or radiculopathy Santiago Morales PA [facility] [place] [address] [facility] [address] Referral ID Status Reason Start Date Expiration Date V isits Requested Visits Authorized [id number] Closed Pain Consult 04/06/2024 04/06/2025 1 1 Reason for Visit * Reason Comments Follow-up Pain Back of neck- right side of neck is worse Encounter Details Date Type Department Care Team (Latest Contact Info) Description 04/06/2024 8:30 AM EDT Office Visit [facility] [place] [address] Santiago Morales PA [facility] [place] [address] Spondylosis of cervical region without [...] the Center for [facility] Sp[facility] @ [facility] for evaluation. Chief Complaint: Neck [...] strength though with slight weakness with left contact center associate compared to thatof the right. Imaging: No [...] 9:00 AM EDT Office Visit [place] [address] Dion Barlow MD [facility] [place] [address] 09/01/2024 9:40 AM EDT Office Visit Cardiology at [address] [phone] Franky Shaver MD [facility] [place] [address] 09/01/2024 11:20 AM EDT Office Visit Dermatology at [facility] [address] [place] [address] Gómez Mercer MD [facility] DR [place] [address] 09/21/2024 2:45 PM EDT Office Visit [facility] [place] [address] Trung Hoyos MD [facility] [place] [address] Scheduled Referrals Name Type Priority Associated Diagnoses Orde r Schedule Referral to Pain and Spine Center (Internal only) Outpatient Referral Routine Spondylosis of cervical region without myelopathy or radiculopathy Ordered: 04/06/2024 documented as of this encounter Visit Diagnoses Diagnosis Spondylosis of cervical region without myelopathy or radiculopathy Cervical spondylosis without myelopathy documented in this encounter Care Teams Photographic Reproduction Technician Relationship Specialty Start Date End Date Deacon Watters, PLATER PRODUCTION [address] [place] [address] PCP - General Family Medicine 02/17/22 documented as of this encounter
--- OUTSIDE RECORDS SUMMARY | 2024-07-27 13:37 | XMS_ITS | Encounter Summary ---
Author Organization [facility] Address [facility] [place] [address] Care Team Providers Care Jewelry Mechanic Name Role Phone DuongDeacon Priscilla LUCERO Primary Care Provider +1- [phone] Encounter Details Date Type Department Care Team [...] 9:00 AM EDT Office [place] [address] Dion Barlow MD [facility] [place] [address] 09/01/2024 9:40 AM EDT Office Visit Cardiology at [address] [phone] Franky Shaver MD [facility] [place] [address] 09/01/2024 11:20 AM EDT Office Visit Dermatology at [facility] [address] [place] [address] Gómez Mercer MD [facility] DR [place] [address] 09/21/2024 2:45 PM EDT Office Visit Pain and Spine Center at [facility] [place] [address] Trung Hoyos MD [facility] [address] documented as of this encounter Visit Diagnoses Not on filedocumented in this encounter Care Teams Jewelry Mechanic Relationship Specialty Start Date End Date Deacon Watters, JAZMINE [address] [facility] [address] [place] [address] PCP - General Family Medicine 02/17/22 documented as of this encounter
--- OUTSIDE RECORDS SUMMARY | 2024-07-27 13:37 | XMS_ITS | Encounter Summary ---
Author Organization [facility] Address [facility] [place] [address] Care Team Providers Care Clinical Rn Name Role Phone DuongDeacon Priscilla LUCERO Primary Care Provider +1- [phone] Encounter Details Date Type Department Care Team [...] 9:00 AM EDT Office [place] [address] Dion Barlow MD [facility] [place] [address] 09/01/2024 9:40 AM EDT Office Visit Cardiology at [address] [phone] Frnaky Shaver MD [facility] [place] [address] 09/01/2024 11:20 AM EDT Office Visit Dermatology at [facility] [address] [place] [address] Gómez Mercer MD [facility] [place] [address] 09/21/2024 2:45 PM EDT Office Visit [facility] and Sp[facility] at [facility] [place] [address] Trung Hoyos MD [facility] [place] [address] documented as of this encounter Visit Diagnoses Not on filedocumented in this encounter Care Teams Clinical Rn Relationship Specialty Start Date End Date Deacon Watters, JAZMINE [address] [place] [address] PCP - General Family Medicine 02/17/22 documented as of this encounter
--- OUTSIDE RECORDS SUMMARY | 2024-07-27 13:37 | XMS_ITS | Encounter Summary ---
Author Organization [facility] Address [facility] [place] [address] Care Team Providers Care Virtualization Architect Name Role Phone DuongDeacon Priscilla LUCERO Primary Care Provider +1- [phone] Encounter Details Date Type Department Care Team [...] 9:00 AM EDT Office [place] [address] Dion Barlow MD [facility] [place] [address] 09/01/2024 9:40 AM EDT Office Visit Cardiology at [address] [phone] Franky Shaver MD [facility] [place] [address] 09/01/2024 11:20 AM EDT Office Visit Dermatology at [facility] [address] [place] [address] Gómez Mercer MD [facility] DR EDDIE [place] [address] 09/21/2024 2:45 PM EDT Office Visit Pain and Spine Center at [facility] [place] [address] Trung Hoyos MD [facility] [place] [address] documented as of this encounter Visit Diagnoses Not on filedocumented in this encounter Care Teams Virtualization Architect Relationship Specialty Start Date End Date Deacon Watters, JAZMINE [address] [place] [address] PCP - General Family Medicine 02/17/22 documented as of this encounter
--- OUTSIDE RECORDS SUMMARY | 2024-07-27 13:37 | XMS_ITS | Encounter Summary ---
Author Organization [facility] [place] [address] Care Team Providers Care Sales Representative Raw Fibers Name Role Phone Deacon Watters Priscilla LUCERO Primary Care Provider +1- [phone] Reason for Visit * Reason Onset Date Comments Medication Refill 09/21/2023 Encounter Details Date Type Department Care Team (Late st Contact Info) Description 09/21/2023 Refill [place] [phone] Dion Barlow MD [facility] [place] [place] [address] Social History Tobacco Use Types Packs/Day Years [...] 9:00 AM EDT Office Visit [place] [phone] Dion Barlow MD [facility] [place] [place] [address] 09/01/2024 9:40 AM EDT Office Visit Cardiology at [address] [place] [address] Franky Shaver MD [facility] [place] [address] 09/01/2024 11:20 AM EDT Office Visit Dermatology at [facility] [address] [place] [address] Gómez Mercer MD [facility] [place] [address] 09/21/2024 2:45 PM EDT Office Visit [facility] [place] [address] Trung Hoyos MD [facility] [place] [address] documented as of this encounter Visit Diagnoses Not on filedocumented in this encounter Care Teams Sales Representative Raw Fibers Relationship Specialty Start Date End Date Deacon Watters, DECK BUILDER [address] [place] [address] PCP - General Family Medicine 02/17/22 documented as of this encounter
--- OUTSIDE RECORDS SUMMARY | 2024-07-27 13:37 | XMS_ITS | Encounter Summary ---
Author Organization [facility] Address [facility] [place] [address] Care Team Providers Care Med Admin Name Role Phone Deacon Watters APRN Primary Care Provider +1- [phone] Encounter Details Date Type Department Care Team (Latest Contact Info) Description 06/06/2024 8:00 AM EDT Office Visit [place] [address] Marcelle Weinberg CERTIFIED MEDICATION AIDE [facility] [place] [address] Left sided colitis without complications Social History [...] for cramping - Repeat routine labs today( [facility]) and submit stool calprotectin ( [facility]). - Follow up with Dermatology regarding skin [...] colitis Overview Note: Colonoscopy 04/08/10 (Dr. Gomes [facility]) - inflammation only within the rectum and sigmoid; extent of the exam was to the hepatic flexure; biopsies proximal to the sigmoid nl Repeat exam 11/27/11 ([facility]): mildly active colitis [...] ascending colon. Several HPs and one TA. [place] 03/2022 - [place]vo 1 limited to rectosigmoid, diverticulosis. No dysplasia TREATMENT: cortenemas, Asacol, Rowasa, prednisone, and imodium [place] 12/2023- Ileum was normal. Calvo 1 inflammation [...] - 199 mg/dL Final COLONOSCOPY 01/20/2024 Final Value:[facility] Endoscopy Procedure Date: 01/20/2024 10:01 AM Patient Name: Brian Rodriguez Date of : 1950 Age: 73 Order #: [id number] Instrument Name: [id number] Procedure: Colonoscopy Indications: Follow-up of left-sided chronic [...] by the physician, the nurse and the senior health physics technician in the pre-procedure area in the [...] 10:01 AM Surgical Pathology Report 01/20/2024 Final Value:[id number] Location: 4T; EA12; A The signing pathologist [...] MD Verified: 01/29/2024 12:04 Pathologist Performed at: -[facility] Dept. of Pathology, [facility] [address], [place] [address] Reinforcing Rod Layer: Joana Soler MD, [place], [place] Certificate: [id number] SPECIMEN(S) SUBMITTED A - right colon, biopsy [...] for cramping - Repeat routine labs today( [facility]) and submit stool calprotectin ( [facility]). - Follow up with Dermatology regarding skin rash on your groin. - Follow up with Dr. Barlow in 4 months Please contact me if there are any further questions regarding the care of this patient. Shan Weinberg APRN [facility] Section of Gastroenterology and Hepatology [address] [address] documented in this encounter Plan of Treatment Upcoming Encounters Date Type Department Care Team (Late st Contact Info) Description 08/15/2024 9:00 AM EDT Office Visit [place] [address] Dion Barlow MD [facility] [place] [address] 09/01/2024 9:40 AM EDT Office Visit Cardiology at [address] [place] [address] Franky Shaver MD [facility] [place] [address] 09/01/2024 11:20 AM EDT Office Visit Dermatology at [facility] [address] [place] [address] Gómez Mercer MD [facility] DR EDDIE [place] [address] 09/21/2024 2:45 PM EDT Office Visit [facility] [place] [address] Trung Hoyos MD [facility] [place] [address] documented as of this encounter Procedures Procedure [...] Agency Comment Spec In Lab MonalisaDg Weinberg CERTIFIED MEDICATION AIDE MICROBIOLOGY - GE NERAL ORDERABLES Performing Organization Address [facility] Co de Phone Number [facility] [place] [address] * (ABNORMAL) Calprotectin, Stool (06/06/2024 5:30 PM EDT) Pathologist [facility] Calprotectin, Stool 112(H) <=79 mcg/g [facility] Comment: Calprotectin Concentration ? Interpretation ? < 80 mcg/g ?Normal ? 80 ? 160 mcg/g ?Borderline ? >160 mcg/g ?Elevated Stool 06/06/2024 5:30 PM EDT 06/07/2024 1:07 PM EDT Narrative Resulting Agency Comment Spec In Lab MonalisaDg Weinberg CERTIFIED MEDICATION AIDE BODY FLUIDS AND S TOOLS ORDERABLES Performing Organization Address [facility] de Phone Number [facility] [place] [address] * Differential, Automated (06/06/2024 9:04 AM EDT) Pathologist [facility] Neutrophil % 70.3 % [facility] Neutrophil Absolute 4.36 1.70 - 6.10 x10(3)/[facility] Lymph % 19.7 % [facility] Lymphocytes Abs 1.2 0.9 - 3.2 x10(3)/[facility] Monocyte % 7.7 % [facility] Monocyte Abs 0.5 0.3 - 0.9 x10(3)/[facility] Eos % 1.3 % [facility] Eosinophils Abs 0.1 0.0 - 0.4 x10(3)/[facility] Basophil % 0.5 % [facility] Baso Absolute 0.0 0.0 - 0.1 x10(3)/[facility] Immature Gran % 0.50 % [facility] Comment: Immature granulocytes(IG's)percentage and absolute count will include metamyelocytes, myelocytes, and promyelocytes. Blood smears from CBCs yielding IG's will be scanned manually for concordance. If this scan disagrees with the automated IG or if promyelocytes are noted, a manual differential will be performed. Immature Gran Absolute 0.03 0.00 - 0.04 x10(3)/[facility] Blood 06/06/2024 9:04 AM EDT 06/06/2024 9:12 AM EDT Narrative Resulting Agency Comment Spec In Lab Marcelle Weinberg CERTIFIED MEDICATION AIDE HEMATOLOGY ORDERA BLES [facility] [place] [address] * (ABNORMAL) Hemogram (06/06/2024 9:04 AM EDT) White Blood Cell 6.2 4.0 - 9.5 x10(3)/mc L [facility] Red Blood Cell 3.68(L) 4.58 - 5.54 x10(6)/mc L [facility] Hemoglobin 12.0(L) 13.7 - 16.5 g/dL [facility] Hematocrit 35.7(L) 40.5 - 48.5 % [facility] Mean Cell Volume 97.0(H) 82.9 - 93.1 fL [facility] Mean Cell Hemoglobin 32.6(H) 27.5 - 32.1 pg [facility] Mean Cell Hemoglobin Concentration 33.6 32.0 - 35.7 g/dL [facility] Platelet 168 145 - 357 x10(3)/mc L [facility] RDW Standard Deviation 46.7(H) 36.0 - 45.0 fL [facility] RDW coefficient of variation 13.1 11.4 - 13.8 % [facility] Mean Platelet Volume 11.3 7.6 - 12.9 [facility] NRBC% auto 0.0 % [facility] NRBC Absolute 0.000 0.000 - 0.000 x10(3)/mc L [facility] Blood 06/06/2024 9:04 AM EDT 06/06/2024 9:12 AM EDT Narrative Resulting Agency Comment Spec In Lab Marcelle Weinberg CERTIFIED MEDICATION AIDE HEMATOLOGY ORDERA BLES Performing Organization Address City/[facility]/ZIP Co de Phone Number [facility] [place] [address] * (ABNORMAL) CRP, acute inflammation (06/06/2024 9:04 AM EDT) C-Reactive Protein 6.4(H) <=4.9 mg/L [facility] Blood 06/06/2024 9:04 AM EDT 06/06/2024 9:12 AM EDT Narrative Resulting Agency Comment Spec In Lab Marcelle Weinberg CERTIFIED MEDICATION AIDE CHEMISTRY ORDERAB LES [facility] [place] [address] * Sedimentation rate (06/06/2024 9:04 AM EDT) Sedimentation Rate Automated 38 3 - 46 mm/hr [facility] Comment: Effective November 02, 2019 new capillary photometric technology has resulted in a change in reference ranges. It is recommended that each ESR result be reviewed with its own age appropriate reference range. Blood 06/06/2024 9:04 AM EDT 06/06/2024 9:12 AM EDT Narrative Resulting Agency Comment Spec In Lab MonalisaDg Weinberg CERTIFIED MEDICATION AIDE HEMATOLOGY ORDERA BLES [facility] [place] [address] * Comprehensive metabolic panel (non-fasting) (06/06/2024 9:04 AM EDT) Glucose 136 65 - 199 mg/dL [facility] Comment:Diabetes: >=200 mg/d L plus symptoms Blood Urea Nitrogen 16 10 - 20 mg/dL [facility] Creatinine 1.05 0.80 - 1.50 mg/dL [facility] Sodium 144 135 - 145 mmol/L [facility] Potassium 4.2 3.5 - 5.0 mmol/L [facility] Comment: Please note: ??Patients with WBC >100,000 may have falsely elevated Potassium levels. ??For accurate Potassium quantification in these patients send serum separator tube (gold top) for subsequent determinations. ??Contact the Clinical Chemistry Laboratory if there are any questions. Chloride 107 98 - 107 mmol/L [facility] Carbon Dioxide 26 22 - 31 mmol/L [facility] Anion Gap 11 5 - 15 mmol/L [facility] Calcium 9.8 8.5 - 10.5 mg/dL [facility] Protein, Total 7.6 6.1 - 8.0 g/dL [facility] Albumin 4.1 3.2 - 5.2 g/dL [facility] Aspartate Aminotransferase 16 0 - 39 unit/L [facility] Alanine Aminotransferase 18 0 - 55 unit/L [facility] Alkaline Phosphatase 71 40 - 130 unit/L [facility] Bilirubin, Total 0.5 0.2 - 1.3 mg/dL [facility] Est Glomerular Filtration Rate 74 >=60 mL/min/1. 73 m?? [facility] Comment: This patient's estimated GFR [...] APRN CHEMISTRY ORDERAB LES Performing Organization Address City/State/[facility] Co de Phone Number [facility] [place] [address] documented in this encounter Visit Diagnoses Diagnosis Left sided colitis without complications Left sided ulcerative (chronic) colitis documented in this encounter Care Teams Med Admin Relationship Specialty Start Date End Date Deacon Watters APRN [address] [place] [address] PCP - General Family Medicine 02/17/22 documented as of this encounter
--- OUTSIDE RECORDS SUMMARY | 2024-07-27 13:37 | XMS_ITS | Encounter Summary ---
Author Organization [facility] [place] [address] Care Team Providers Care Blind Escort Name Role Phone Deacon Watters APRN Primary Care Provider +1- [phone] Encounter Details Date Type Department Care Team (Late st Contact Info) Description 06/09/2024 Telephone [place] [phone] Marcelle Weinberg POT WASHER [facility] [place] [address] Social History Tobacco Use Types Packs/Day Years [...] 9:00 AM EDT Office [place] [address] Dion Barlow MD [facility] [place] [address] 09/01/2024 9:40 AM EDT Office Visit Cardiology at [address] [address] Franky Shaver MD [facility] [place] [address] 09/01/2024 11:20 AM EDT Office Visit Dermatology at [address] [address] Gómez Mercer MD [facility] DR EDDIE [place] [address] 09/21/2024 2:45 PM EDT Office Visit [place] [address] Trung Hoyos MD [facility] [place] [address] Scheduled Orders Name Type Priority Associated Diagnoses Orde r Schedule Calprotectin, Stool Lab Routine Left sided colitis without complications Expected: 08/01/2024 (Approximate), Expires: 06/09/2025 documented as of this encounter Visit Diagnoses Diagnosis Left sided colitis without complications Left sided ulcerative (chronic) colitis documented in this encounter Care Teams Blind Escort Relationship Specialty Start Date End Date Deacon Watters APRN [address] [place] [address] PCP - General Family Medicine 02/17/22 documented as of this encounter
--- OUTSIDE RECORDS SUMMARY | 2024-07-27 13:37 | XMS_ITS | Encounter Summary ---
Author Organization [facility] Address [facility] [place] [address] Care Team Providers Care Insurance Case Manager Name Role Phone Duong Deacon Wells APRN Primary Care Provider +1- [phone] Reason for Visit * Reason Comments Basal Cell Carcinoma Encounter Details Date Type Department Care Team (Latest Contact Info) Description 02/17/2024 7:45 AM EDT Clinical Support Dermatology at [facility] [address] [place] [address] Kingsley Finn MD [facility] [place] [address] Basal cell carcinoma of right side of [...] 9:00 AM EDT Office Visit Gastroenterology [place] [address] Dion Barlow MD [facility] [place] [address] 09/01/2024 9:40 AM EDT Office Visit Cardiology at [address] [address] Franky Shaver MD [facility] [place] [address] 09/01/2024 11:20 AM EDT Office Visit Dermatology at [facility] [address] [place] [address] Gómez Mercer MD [facility] DR EDDIE [place] [address] 09/21/2024 2:45 PM EDT Office Visit Pain and Spine Center at [place] [address] Trung Hoyos MD [facility] [place] [address] documented as of this encounter Visit Diagnoses Diagnosis Basal cell carcinoma of right side of nose Basal cell carcinoma of skin of other and unspecified parts of face documented in this encounter Care Teams Insurance Case Manager Relationship Specialty Start Date End Date Deacon Watters APRN [address] [place] [address] PCP - General Family Medicine 02/17/22 documented as of this encounter
--- OUTSIDE RECORDS SUMMARY | 2024-07-27 13:37 | XMS_ITS | Encounter Summary ---
Author Organization [facility] [place] [address] Care Team Providers Care Scheduler Conveyor Name Role Phone Deacon Watters APRN Primary Care Provider +1- [phone] Encounter Details Date Type Department Care Team (Late st Contact Info) Description 06/06/2024 Telephone [place] [phone] Marcelle Weinberg MATERIAL HANDLING CREW SUPERVISOR [facility] [place] [place] [address] Social History Tobacco Use Types Packs/Day Years [...] EDT Office [place] [address] Dion Barlow MD [facility] [place] [place] [address] 09/01/2024 9:40 AM EDT Office Visit Cardiology at [address] [address] Franky Shaver MD [facility] [place] [address] 09/01/2024 11:20 AM EDT Office Visit Dermatology at [address] [address] Gómez Mercer MD [facility] [place] [address] 09/21/2024 2:45 PM EDT Office Visit [place] [address] Trung Hoyos MD [facility] [place] [place] [address] documented as of this encounter Visit Diagnoses Not on filedocumented in this encounter Care Teams Scheduler Conveyor Relationship Specialty Start Date End Date Deacon Watters APRN [address] [place] [address] [address] [facility] [address] [place] [address] PCP - General Family Medicine 02/17/22 documented as of this encounter
--- OUTSIDE RECORDS SUMMARY | 2024-07-27 13:38 | XMS_ITS | Encounter Summary ---
Author Organization [facility] [place] [address] Care Team Providers Care Ranch Supervisor Name Role Phone Josue Wilkinson MD Primary Care Provider [phone] Reason for Visit * Reason Onset Date Comments Medication Refill 05/06/2021 Encounter Details Date Type Department Care Team (Late st Contact Info) Description 05/06/2021 Ref[place] [address] Marcelle Weinberg, JAZMINE [facility] [place] [address] Social History Tobacco Use Types Packs/Day Years [...] 9:00 AM EDT Office [place] [address] Dion Barlow MD [facility] [place] [address] 09/01/2024 9:40 AM EDT Office Visit Cardiology at [address] [place] [address] Franky Shaver MD [facility] [place] [address] 09/01/2024 11:20 AM EDT Office Visit Dermatology at [facility] [address] [place] [address] Gómez Mercer MD [facility] [place] [address] 09/21/2024 2:45 PM EDT Office Visit [facility] [place] [address] Trung Hoyos MD [facility] [place] [address] documented as of this encounter Visit Diagnoses Not on filedocumented in this encounter Care Teams Ranch Supervisor Relationship Specialty Start Date End Date Josue Wilkinson MD PCP - General General Internal Medicine 02/14/21 9/3 documented as of this encounter
--- OUTSIDE RECORDS SUMMARY | 2024-07-27 13:38 | XMS_ITS | Encounter Summary ---
Author Organization [facility] Address [facility] [place] [address] Care Team Providers Care Hearing Aid Specialist Name Role Phone Deacon Watters APRN Primary Care Provider [phone]- [phone] Encounter Details Date Type Department Care Team (Late st Contact Info) Description 02/17/2022 9:30 AM EDT Office [place] [address] Marcelle Weinberg PRESS AND BLOW MACHINE TENDER [facility] [place] [address] Other ulcerative colitis with rectal bleeding Social [...] sigmoid nl ?? Repeat exam 11/27/11 ([facility]): mildly active colitis in the sigmoid colon [...] procedures 06/28/21 EGD ( [facility]): Pre op Dx; Dysphagia Post op DX: [...] Disease Center Section of Gastroenterology and Hepatology [address] [address] documented in this encounter Plan of Treatment Upcoming Encounters Date Type Department Care Team (Late st Contact Info) Description 08/15/2024 9:00 AM EDT Office [place] [address] Dion Barlow MD [facility] [place] [address] 09/01/2024 9:40 AM EDT Office Visit Cardiology at [address] [place] [address] Franky Shaver MD [facility] [place] [address] 09/01/2024 11:20 AM EDT Office Visit Dermatology at [facility] [address] [place] [address] Gómez Mercer MD [facility] DR EDDIE REARDON[place] [address] 09/21/2024 2:45 PM EDT Office Visit Pain and Spine Center at [facility] [place] [address] Trung Hoyos MD [facility] [place] [address] Scheduled Orders Name Type Priority Associated Diagnoses [...] AM EDT) Calprotectin, Stool 55 <=79 mcg/g [facility] Comment: Calprotectin Concentration ? Interpretation ? < 80 mcg/g ?Normal ? 80 ? 160 mcg/g ?Borderline ? >160 mcg/g ?Elevated Stool 02/19/2022 8:00 AM EDT 02/19/2022 11:25 AM EDT Narrative Resulting Agency Comment Spec In Lab Marcelle Conte Dragwill PRESS AND BLOW MACHINE TENDER BODY FLUIDS AND S TOOLS ORDERABLES Performing Organization Address City/State/[facility] Co de Phone Number [facility] [place] [address] * (ABNORMAL) Differential, Automated (02/17/2022 10:40 AM EDT) Neutrophil % 65.7 % [facility] Neutrophil Absolute 4.53 1.70 - 6.10 x10(3)/mc L [facility] Lymph % 22.8 % [facility] Lymphocytes Abs 1.6 0.9 - 3.2 x10(3)/mc L [facility] Monocyte % 7.3 % [facility] Monocyte Abs 0.5 0.3 - 0.9 x10(3)/mc L [facility] Eos % 2.6 % [facility] Eosinophils Abs 0.2 0.0 - 0.4 x10(3)/mc L [facility] Basophil % 0.6 % [facility] Baso Absolute 0.0 0.0 - 0.1 x10(3)/mc L [facility] Immature Gran % 1.00 % [facility] Comment: Immature granulocytes(IG's)percentage and absolute count will include metamyelocytes, myelocytes, and promyelocytes. Blood smears from CBCs yielding IG's will be scanned manually for concordance. If this scan disagrees with the automated IG or if promyelocytes are noted, a manual differential will be performed. Immature Gran Absolute 0.07(H) 0.00 - 0.04 x10(3)/ L [facility] Blood 02/17/2022 10:4 0 AM EDT 02/17/2022 10:50 AM EDT Narrative Resulting Agency Comment Spec In Lab Marcelle Conte Dg Weinberg PRESS AND BLOW MACHINE TENDER HEMATOLOGY ORDERA BLES [facility] [place] [address] * (ABNORMAL) Hemogram (02/17/2022 10:40 AM EDT) White Blood Cell 6.9 4.0 - 9.5 x10(3)/[facility] Red Blood Cell 3.58(L) 4.58 - 5.54 x10(6)/ L [facility] Hemoglobin 11.5(L) 13.7 - 16.5 g/dL [facility] Hematocrit 35.1(L) 40.5 - 48.5 % [facility] Mean Cell Volume 98.0(H) 82.9 - 93.1 fL [facility] Mean Cell Hemoglobin 32.1 27.5 - 32.1 pg [facility] Mean Cell Hemoglobin Concentration 32.8 32.0 - 35.7 g/dL [facility] Platelet 220 145 - 357 x10(3)/ L [facility] RDW Standard Deviation 44.3 36.0 - 45.0 [facility] RDW coefficient of variation 12.3 11.4 - 13.8 % [facility] Mean Platelet Volume 10.5 7.6 - 12.9 [facility] NRBC% auto 0.0 % [facility] NRBC Absolute 0.000 0.000 - 0.000 x10(3)/mc L [facility] Blood 02/17/2022 10:4 0 AM EDT 02/17/2022 10:50 AM EDT Narrative Resulting Agency Comment Spec In Lab Marcelle Weinberg PRESS AND BLOW MACHINE TENDER HEMATOLOGY ORDERA BLES Performing Organization Address City/[facility]/ZIP Co de Phone Number [facility] [address] * (ABNORMAL) CRP, acute inflammation (02/17/2022 10:40 AM EDT) C-Reactive Protein 5.0(H) <=4.9 mg/L [facility] Blood 02/17/2022 10:4 0 AM EDT 02/17/2022 10:50 AM EDT Narrative Resulting Agency Comment Spec In Lab Marcelle Dunnjeovannyjania PRESS AND BLOW MACHINE TENDER CHEMISTRY ORDERAB LES Performing Organization Address [facility] Co de Phone Number [facility] [place] [address] * (ABNORMAL) Sedimentation rate (02/17/2022 10:40 AM EDT) [facility] Sedimentation Rate Automated 64(H) 3 - 46 mm/hr [facility] Comment: Effective November 02, 2019 new capillary photometric technology has resulted in a change in reference ranges. It is recommended that each ESR result be reviewed with its own age appropriate reference range. Blood 02/17/2022 10:4 0 AM EDT 02/17/2022 10:50 AM EDT Narrative Resulting Agency Comment Spec In Lab Marcelle Weinberg PRESS AND BLOW MACHINE TENDER HEMATOLOGY ORDERA BLES Performing Organization Address [facility]/ZIP Co de Phone Number [facility] [address] * Comprehensive metabolic panel (non-fasting) (02/17/2022 10:40 AM EDT) Glucose 94 65 - 199 mg/dL [facility] Comment:Diabetes: >=200 mg/d L plus symptoms Blood Urea Nitrogen 14 10 - 20 mg/dL [facility] Creatinine 1.06 0.80 - 1.50 mg/dL [facility] Sodium 144 135 - 145 mmol/L [facility] Potassium 3.9 3.5 - 5.0 mmol/L [facility] Comment: Please note: ??Patients with WBC >100,000 may have falsely elevated Potassium levels. ??For accurate Potassium quantification in these patients send serum separator tube (gold top) for subsequent determinations. ??Contact the Clinical Chemistry Laboratory if there are any questions. Chloride 107 98 - 107 mmol/L [facility] Carbon Dioxide 26 22 - 31 mmol/L [facility] Anion Gap 11 5 - 15 mmol/L [facility] Calcium 9.7 8.5 - 10.5 mg/dL [facility] Protein, Total 8.0 6.1 - 8.0 g/dL [facility] Albumin 4.3 3.2 - 5.2 g/dL [facility] Aspartate Aminotransferase 10 0 - 39 unit/L [facility] Alanine Aminotransferase 17 0 - 55 unit/L [facility] Alkaline Phosphatase 78 40 - 130 unit/L [facility] Bilirubin, Total 0.4 0.2 - 1.3 mg/dL [facility] Est Glomerular Filtration Rate 69 >=60 mL/min/1. 73 m?? [facility] Comment: This patient? s estimated [...] Agency Comment Spec In Lab Marcelle Weinberg PRESS AND BLOW MACHINE TENDER CHEMISTRY ORDERAB LES Performing Organization Address City/State/[facility] Co de Phone Number [facility] [place] [address] documented in this encounter Visit Diagnoses Diagnosis Other ulcerative colitis with rectal bleeding documented in this encounter Care Teams Hearing Aid Specialist Relationship Specialty Start Date End Date Deacon Watters APRN [address] [place] [address] PCP - General Family Medicine 02/17/22 documented as of this encounter
--- OUTSIDE RECORDS SUMMARY | 2024-07-27 13:38 | XMS_ITS | Encounter Summary ---
Author Organization [facility] [place] [address] Care Team Providers Care Rag Shredder Name Role Phone Maximilian Fall MD Primary Care Provider [phone] Reason for Visit * Reason Comments Medication Refill Encounter Details Date Type Department Care Team (Late st Contact Info) Description 09/03/2020 Refill [place] [address] Dion Barlow MD [facility] [place] [address] Social History Tobacco Use Types Packs/Day Years [...] 9:00 AM EDT Office Visit [place] [phone] Dion Barlow MD [facility] [place] [address] 09/01/2024 9:40 AM EDT Office Visit Cardiology at [address] [place] [address] Franky Shaver MD [facility] [place] [address] 09/01/2024 11:20 AM EDT Office Visit Dermatology at [facility] [address] [place] [address] Gómez Mercer MD [facility] DR EDDIE [place] [address] 09/21/2024 2:45 PM EDT Office Visit Pain [place] [address] Trung Hoyos MD [facility] [place] [address] documented as of this encounter Visit Diagnoses Not on filedocumented in this encounter Care Teams Rag Shredder Relationship Specialty Start Date End Date Maximilian Fall MD [address] [facility] [place] [address] PCP - General 10/01/11 02/13/21 documented as of this encounter
--- OUTSIDE RECORDS SUMMARY | 2024-07-27 13:38 | XMS_ITS | Encounter Summary ---
Author Organization [facility]ly [facility] [place] [address] Care Team Providers Care Casino Supervisor Name Role Phone Deacon Watters JAZMINE Primary Care Provider [phone]- [phone] Reason for Visit * Reason Onset Date Comments Medication Refill 08/22/2022 Encounter Details Date Type Department Care Team (Late st Contact Info) Description 08/22/2022 Ref[place] [phone] Dion Barlow MD [facility] [place] [address] Social History Tobacco Use Types Packs/Day Years [...] EDT Office [place] [address] Dion Barlow MD [facility] [place] [address] 09/01/2024 9:40 AM EDT Office Visit Cardiology at [address] [place] [address] Franky Shaver MD [facility] [place] [address] 09/01/2024 11:20 AM EDT Office [facility] [address] [place] [address] Gómez Mercer MD [facility] [place] [address] 09/21/2024 2:45 PM EDT Office Visit [place] [address] Trung Hoyos MD [facility] [place] [address] documented as of this encounter Visit Diagnoses Not on filedocumented in this encounter Care Teams Casino Supervisor Relationship Specialty Start Date End Date Deacon Watters, SUPERVISOR [employer] [address] [place] [address] PCP - General Family Medicine 02/17/22 documented as of this encounter
--- OUTSIDE RECORDS SUMMARY | 2024-07-27 13:38 | XMS_ITS | Encounter Summary ---
Author Organization [facility] Address [facility] [place] [address] Care Team Providers Care Drag Out Worker Name Role Phone Deacon Watters APRN Primary Care Provider [phone]- [phone] Encounter Details Date Type Department Care Team (Late st Contact Info) Description 09/29/2022 11:00 AM EST Office [place] [address] Marcelle Weinberg [facility] [place] [address] Left sided colitis without complications; Other ulcerative [...] Note: ? Colonoscopy 04/08/10 (Dr. Gomes [facility]) - inflammation only within the rectum [...] was cancer, followed by Dr. Carrillo, at [facility]. IBD Questionnaire No questionnaires on file. [...] Vitals: 09/29/22 1108 BP: 153/72 BP Location ([facility]): Left arm Patient Position: Sitting [...] Disease Center Section of [place]astroenterology [place] [address] documented in this encounter Miscellaneous Notes * Addendum Note - Andres De Dios - 09/29/2022 11:00 AM ESTAddended by: ANDRES DE DIOS on: 09/29/2022 12:05 PM Modules accepted: Orders documented in this encounter Plan of Treatment Upcoming Encounters Date Type Department Care Team (Late st Contact Info) Description 08/15/2024 9:00 AM EDT Office [place] [address] Dion Barlow MD [facility] [place] [address] 09/01/2024 9:40 AM EDT Office Visit Cardiology at [address] [place] [address] Franky Shaver MD [facility] [place] [address] 09/01/2024 11:20 AM EDT Office Visit Dermatology at [facility] [address] [place] [address] Gómez Mercer MD [facility] [place] [address] 09/21/2024 2:45 PM EDT Office Visit [place] [address] Trung Hoyos MD [facility] [place] [address] documented as of this encounter Procedures [...] Agency Comment Spec In Lab Marcelle Weinberg [facility] ORDERA BLES Performing Organization Address [facility]/ZIP Co de Phone Number [facility] [place] [address] * CRP, acute inflammation (09/29/2022 12:09 PM EST) C-Reactive Protein <3.0 <=4.9 mg/L [facility] Blood 09/29/2022 12:0 9 PM EST 09/29/2022 12:15 PM EST Narrative Resulting Agency Comment Spec In Lab Marcelle Weinberg [facility] ORDERAB LES Performing Organization Address [facility] Co de Phone Number [facility] [place] [address] * Creatinine (09/29/2022 12:09 PM EST) Creatinine [...] Agency Comment Spec In Lab Marcelle Dunnjeovannyjania [facility] ORDERAB LES [facility] [place] [address] documented in this encounter Visit Diagnoses Diagnosis Left sided colitis without complications Left sided ulcerative (chronic) colitis Other ulcerative colitis with rectal bleeding documented in this encounter Care Teams Drag Out Worker Relationship Specialty Start Date End Date Deacon Watters APRN [address] [place] [address] PCP - General Family Medicine 02/17/22 documented as of this encounter
--- OUTSIDE RECORDS SUMMARY | 2024-07-27 13:38 | XMS_ITS | Encounter Summary ---
Author Organization [facility] [place] [address] Care Team Providers Care Procedural Nurse Name Role Phone Deacon Watters APRN Primary Care Provider [phone]- [phone] Encounter Details Date Type Department Care Team (Late st Contact Info) Description 10/06/2022 Telephone [place] [address] Marcelle Weinberg SUPERVISOR PHOTOENG[employer] [facility] [place] [address] Social History Tobacco Use Types Packs/Day Years [...] of this CT to Paula Alonso ( [facility]) and he would also give her office a call. documented in this encounter Plan of Treatment Upcoming Encounters Date Type Department Care Team (Late st Contact Info) Description 08/15/2024 9:00 AM EDT Office [place] [address] Dion Barlow MD [facility] [place] [address] 09/01/2024 9:40 AM EDT Office Visit Cardiology at [address] [address] Franky Shaver MD [facility] [place] [address] 09/01/2024 11:20 AM EDT Office Visit Dermatology at [facility] [address] [place] [address] Gómez Mercer MD [facility] DR EDDIE [place] [address] 09/21/2024 2:45 PM EDT Office Visit [place] [address] Trung Hoyos MD [facility] [place] [address] documented as of this encounter Visit Diagnoses Not on filedocumented in this encounter Care Teams Procedural Nurse Relationship Specialty Start Date End Date Deacon Watters, SUPERVISOR [employer] [address] [place] [address] PCP - General Family Medicine 02/17/22 documented as of this encounter
--- OUTSIDE RECORDS SUMMARY | 2024-07-27 13:38 | XMS_ITS | Encounter Summary ---
Author Organization [facility] [place] [address] Care Team Providers Care Advertising Writer Name Role Phone Maximilian Fall MD Primary Care Provider [phone] Reason for Visit * Reason Onset Date Comments Medication Refill 12/11/2020 Encounter Details Date Type Department Care Team (Late st Contact Info) Description 12/11/2020 Refill [place] [phone] Dion Barlow MD [facility] [place] [address] Left sided colitis without complications Social History [...] AM EDT Office Visit [place] [address] Dion Barlow MD [facility] [place] [address] 09/01/2024 9:40 AM EDT Office Visit Cardiology at [address] [place] [address] Franky Shaver MD [facility] [place] [address] 09/01/2024 11:20 AM EDT Office Visit Dermatology at [facility] [address] [place] [address] Gómez Mercer MD [facility] [place] [address] 09/21/2024 2:45 PM EDT Office Visit [facility] [place] [address] Trung Hoyos MD [facility] [place] [address] documented as of this encounter Visit Diagnoses Diagnosis Left sided colitis without complications Left sided ulcerative (chronic) colitis documented in this encounter Care Teams Advertising Writer Relationship Specialty Start Date End Date Maximilian Fall MD [address] [facility] 1 [place] [address] PCP - General 10/01/11 02/13/21 documented as of this encounter
--- OUTSIDE RECORDS SUMMARY | 2024-07-27 13:38 | XMS_ITS | Encounter Summary ---
Author Organization [facility] [place] [address] Care Team Providers Care Stonemason Helper Name Role Phone DuongDeacon Priscilla LUCERO Primary Care Provider [phone] Encounter Details Date Type Department Care Team (Late st Contact Info) Description 11/10/2022 Telephone [place] [address] Dianna Shen RN Social History [...] 9:00 AM EDT Office [place] [address] Dion Barlow MD [facility] [place] [address] 09/01/2024 9:40 AM EDT Office Visit Cardiology at [address] [place] [address] Franky Shaver MD [facility] [place] [address] 09/01/2024 11:20 AM EDT Office Visit Dermatology at [facility] [address] [place] [address] Gómez Mercer MD [facility] [place] [address] 09/21/2024 2:45 PM EDT Office Visit [facility] [place] [address] Trung Hoyos MD [facility] [place] [address] documented as of this encounter Visit Diagnoses Not on filedocumented in this encounter Care Teams Stonemason Helper Relationship Specialty Start Date End Date Deacon Watters APRN [address] [place] [address] PCP - General Family Medicine 02/17/22 documented as of this encounter
--- OUTSIDE RECORDS SUMMARY | 2024-07-27 13:38 | XMS_ITS | Encounter Summary ---
Author Organization [facility] Address [facility] [place] [address] Care Team Providers Care Lighting Technician Name Role Phone Deacon Watters APRN Primary Care Provider +1- [phone] Reason for Referral * Diagnostic Test (Routine) - Closed Specialty Diagnoses / Procedures Referred By Contac t Referred To Contact Radiology Diagnoses Left sided colitis without complications Procedures CT Abdomen & Pelvis w Contrast Dion Barlow MD [facility] [place] [address] Referral ID Status Reason Start Date Expiration Date V isits Requested Visits Authorized [id number] Closed Specialty Service Requested 04/22/2022 10/22/2023 1 1 Encounter Details Date Type Department Care Team (Late st Contact Info) Description 04/22/2022 8:00 AM EDT Office [place] [address] Dion Barlow MD [facility] [place] [address] Left sided colitis without complications; Tick bite [...] arranged at [facility] in [facility] for left lower quadrant abd pain. [...] Interval History: Last visit with Farideh Mathur ENFORCEMENT SAFETY OFFICER 01/2022 Just had colo with Dr. Turner [...] adenopathy and no thyromegaly. HEENT: PERRL, EOMI, DIRECTOR OF CARDIAC REHABILITATION and OP clear without ulceration or lesions. [...] Ref Range Status ??? COLONOSCOPY 03/28/2022 Final Value:[facility] Endoscopy Procedure Date: 03/28/2022 3:15 PM Patient Name: Brian Rodriguez Date of : 1950 Age: 71 Order #: [id number] Instrument Name: [id number] Procedure: Colonoscopy Indications: Follow-up of ulcerative colitis [...] bowel preparation was evaluated using the BBPS (Pengilly Bowel Preparation Scale) with scores of: Right [...] referring physician. Procedure Code(s): --- Professional --- 35047, Colonoscopy, flexible; with removal of tumor(s), polyp(s), or other lesion(s) by snare technique 25205, 59, Colonoscopy, flexible; with biopsy, single or multiple CPT copyright 2020 [employer]. All rights reserved. The codes documented in this report are preliminary and upon computer graphics illustrator review may be revised to meet current compliance requirements. Attending Participation: I personally performed the entire procedure. Mona Turner MD Mona Turner MD 03/28/2022 4:33:58 PM This report has been signed electronically. Number of Addenda: 0 Note Initiated On: 03/28/2022 3:15 PM ??? Surgical Pathology Report 03/28/2022 Final Value:[id number] Location: 4T; EA12; A The signing pathologist [...] Christina Verified: 04/03/2022 15:08 Pathologist Performed at: -[facility] Dept. of Pathology, [place], [place] SPECIMEN(S) SUBMITTED A - Sigmoid bx, [...] en toto in 1 cassette labeled C1. [facility] Hospital Outpatient Visit on 02/19/2022 [...] arranged at [facility] in [facility] for left lower quadrant abd pain. [...] spent 25 min today counseling the patient [id number] on the issues outlined above and 10 minutes reviewing the chart, preparing for this visit, documenting, and implementing the plan. Davina Barlow MD Steamer Blockerpodiatry assistant Co-Director, [facility] Section of [place] [address] documented in this encounter Plan of Treatment Upcoming Encounters Date Type Department Care Team (Late st Contact Info) Description 08/15/2024 9:00 AM EDT Office Visit Gastroenterology at [place] [phone] Dion Barlow MD [facility] [place] [address] 09/01/2024 9:40 AM EDT Office Visit Cardiology at [address] [address] Franky Shaver MD [facility] [place] [address] 09/01/2024 11:20 AM EDT Office Visit Dermatology at [facility] [address] [place] [address] Gómez Mercer MD [facility] DR EDDIE [place] [address] 09/21/2024 2:45 PM EDT Office Visit [facility] [place] [phone] Trung Hoyos MD [facility] [place] [address] documented as of this encounter Procedures Procedure [...] have questions please contact the health healthcare business analyst that requested your imaging first. ? [...] Neutrophil Absolute 4.59 1.70 - 6.10 x10(3)/[facility] LABORATORY Lymph % 20.1 % [facility] Lymphocytes Abs 1.4 0.9 - 3.2 x10(3)/[facility] LABORATORY Monocyte % 7.1 % [facility] LAB[facility] Monocyte Abs 0.5 0.3 - 0.9 x10(3)/[facility] LABORATORY Eos % 3.8 % [facility] LAB[facility]ORY Eosinophils Abs 0.3 0.0 - 0.4 x10(3)/[facility] LABORATORY Basophil % 0.7 % [facility] Baso Absolute 0.0 0.0 - 0.1 x10(3)/[facility] LABORATORY Immature Gran % 0.30 % [facility] Comment: Immature granulocytes(IG's)percentage and absolute count will include metamyelocytes, myelocytes, and promyelocytes. Blood smears from CBCs yielding IG's will be scanned manually for concordance. If this scan disagrees with the automated IG or if promyelocytes are noted, a manual differential will be performed. Immature Gran Absolute 0.02 0.00 - 0.04 x10(3)/[facility] LABORATORY Blood 04/22/2022 8:51 AM EDT 04/22/2022 8:57 AM EDT Narrative Resulting Agency Comment Spec In Lab L Karthik Barlow MD HEMATOLOGY ORDERABLE S [facility] [place] [address] * (ABNORMAL) Hemogram (04/22/2022 8:51 AM EDT) White Blood Cell 6.8 4.0 - 9.5 x10(3)/[facility] LABORATORY Red Blood Cell 3.70(L) 4.58 - 5.54 x10(6)/[facility] LABORATORY Hemoglobin 12.4(L) 13.7 - 16.5 g/dL [facility] Hematocrit 37.5(L) 40.5 - 48.5 % [facility] Mean Cell Volume 101.4(H) 82.9 - 93.1 [facility] LABORATORY Mean Cell Hemoglobin 33.5(H) 27.5 - 32.1 pg [facility] Mean Cell Hemoglobin Concentration 33.1 32.0 - 35.7 g/dL [facility] Platelet 198 145 - 357 x10(3)/[facility] LABORATORY RDW Standard Deviation 45.2(H) 36.0 - 45.0 [facility] LABORATORY RDW coefficient of variation 12.2 11.4 - 13.8 % [facility] Mean Platelet Volume 11.0 7.6 - 12.9 [facility] LABORATORY NRBC% auto 0.0 % [facility] LABORATORY NRBC Absolute 0.000 0.000 - 0.000 x10(3)/[facility] LABORATORY Blood 04/22/2022 8:51 AM EDT 04/22/2022 8:57 AM EDT Narrative Resulting Agency Comment Spec In Lab L Karthik Barlow MD HEMATOLOGY ORDERABLE S [facility] [place] [address] * (ABNORMAL) Basic Metabolic Panel (non-fasting) (04/22/2022 8:51 AM EDT) Glucose 206(H) 65 - 199 mg/dL [facility] Comment:Diabetes: >=200 mg/d L plus symptoms Blood Urea Nitrogen 21(H) 10 - 20 mg/dL [facility] Creatinine 1.17 0.80 - 1.50 mg/dL [facility] Sodium 141 135 - 145 mmol/L [facility] Potassium 4.6 3.5 - 5.0 mmol/L [facility] [...] mmol/L [facility] Calcium 10.1 8.5 - 10.5 mg/dL [facility] Est Glomerular Filtration Rate 61 >=60 mL/min/1. 73 m?? [facility] Comment: This patient? [...] MD CHEMISTRY ORDERABLES Performing Organization Address [facility]/ZIP Co de Phone Number [facility] [place] [address] * CRP, acute inflammation (04/22/2022 8:51 AM EDT) C-Reactive Protein 3.3 <=4.9 mg/L [facility] Blood 04/22/2022 8:51 AM EDT 04/22/2022 8:57 AM EDT Narrative Resulting Agency Comment Spec In Lab L Karthik Barlow MD CHEMISTRY ORDERABLES Performing Organization Address [facility] Co de Phone Number [facility] [place] [address] * Sedimentation rate (04/22/2022 8:51 AM EDT) Sedimentation Rate Automated 36 3 - 46 mm/hr [facility] [...] HEMATOLOGY ORDERABLE S Performing Organization Address [facility] Co de Phone Number [facility] [place] [address] documented in this encounter Visit Diagnoses Diagnosis Left sided colitis without complications Left sided ulcerative (chronic) colitis Tick bite of abdominal wall, initial encounter Gastroesophageal reflux disease, unspecified whether esophagitis present Left sided colitis without complications Left sided ulcerative (chronic) colitis documented in this encounter Care Teams Lighting Technician Relationship Specialty Start Date End Date Deacon Watters APRN [address] [place] [address] PCP - General Family Medicine 02/17/22 documented as of this encounter
--- OUTSIDE RECORDS SUMMARY | 2024-07-27 13:38 | XMS_ITS | Encounter Summary ---
Author Organization [facility] Address [facility] [place] [address] Care Team Providers Care Pediatrician Managing Partner Name Role Phone Deacon Watters APRN Primary Care Provider +1- [phone] Encounter Details Date Type Department Care Team (Latest Contact Info) Description 03/28/2022 2:03 PM EDT - 03/28/2022 5:24 PM EDT Hospital Encounter [place] [address] Mona Turner MD [facility] [place] [address] Discharge Disposition: Home Social History Tobacco Use [...] occurs, please contact your Doctor. Please call [phone] before 8pm Mon-Fri with problems, questions or concerns. If you call after 8pm or on weekends, call the Hospital at [phone] and ask to speak to the Boiler Plant Worker director of public relations and the scroll saw operator will contact that person for you. When should you call for help? Call [phone] anytime you think you may need emergency [...] any problems. Where can you learn more? [facility] View your After Visit Summary and more online at [email or web address] If you would like to [...] cost to you. Content Version: 12.2 ?? [id number] [employer]. Care instructions adapted under license by [facility]. If you have questions about a medical condition or this instruction, always ask your healthcare professional. [employer] disclaims any warranty or liability for your [...] 9:00 AM EDT Office Visit [place] [phone] Dion Barlow MD [facility] [place] [address] 09/01/2024 9:40 AM EDT Office Visit Cardiology at [address] [phone] Franky Shaver MD [facility] [address] 09/01/2024 11:20 AM EDT Office Visit Dermatology at [address] [address] Gómez Mercer MD [facility] DR EDDIE [place] [address] 09/21/2024 2:45 PM EDT Office Visit Pain [place] [phone] Trung Hoyos MD [facility] [place] [address] documented as of this encounter Procedures Procedure Name Priority Date/Time Associated Diagnosis Comments SURGICAL PATHOLOGY REPORT Routine 03/28/2022 4:22 PM EDT SPECIMEN TO PATHOLOGY Routine 03/28/2022 4:22 PM EDT SPECIMEN TO PATHOLOGY Routine 03/28/2022 4:22 PM EDT SPECIMEN TO PATHOLOGY Routine 03/28/2022 4:22 PM EDT Colonoscopy, Biopsy (50775) 03/28/2022 3:30 PM EDT Other ulcerative colitis with rectal bleeding COLONOSCOPY Routine 03/28/2022 3:15 PM EDT documented in this encounter Results * Surgical Pathology Report (03/28/2022 4:22 PM EDT) Final Diagnosis [id number] ? Location: 4T; EA12; A The signing [...] Verified: ??04/03/2022 15:08 ??Pathologist Performed at: ??-[facility] Dept. of Pathology, [place], [place] SPECIMEN(S) SUBMITTED A - Sigmoid bx, [...] labeled C1. ??shb 04/03/2022 3:08 PM EDT [facility] GI Biopsy 03/28/2022 4:22 PM EDT 03/28/2022 4:22 PM EDT GI Biopsy 03/28/2022 4:22 PM EDT 03/28/2022 4:22 PM EDT GI Biopsy 03/28/2022 4:22 PM EDT 03/28/2022 4:22 PM EDT Mona Turner MD PATHOLOGY/CYTOLOGY O CEE [facility] [place] [address] * Specimen to Pathology (03/28/2022 4:22 PM EDT) AP Specimen 03/28/2022 4:22 PM EDT 03/28/2022 4:22 PM EDT Narrative [facility] - 03/28/2022 4:22 PM EDT Specimen requisition ordered. ??Separate Pathology report to follow Mona Turner MD PATHOLOGY/CYTOLOGY O CEE [facility] [place] [address] * Specimen to Pathology (03/28/2022 4:22 PM EDT) AP Specimen 03/28/2022 4:22 PM EDT 03/28/2022 4:22 PM EDT Narrative [facility] - 03/28/2022 4:22 PM EDT Specimen requisition ordered. ??Separate Pathology report to follow Mona Turner MD PATHOLOGY/CYTOLOGY O CEE Performing Organization Address [facility] [place] [address] * Specimen to Pathology (03/28/2022 4:22 PM EDT) AP Specimen 03/28/2022 4:22 PM EDT 03/28/2022 4:22 PM EDT Narrative [facility] - 03/28/2022 4:22 PM EDT Specimen requisition ordered. ??Separate Pathology report to follow Mona Turner MD PATHOLOGY/CYTOLOGY Ozzie MIKE Performing Organization Address [facility] [place] [address] * COLONOSCOPY (03/28/2022 3:15 PM EDT) COLONOSCOPY [facility] Endoscopy Procedure Date: 03/28/2022 3:15 PM ? Patient Name: Brian Rodriguez ? Date of : 1950 ? Age: 71 ? Order #: [id number] ? Instrument Name: [id number] ? Procedure: ? Colonoscopy Indications: ? Follow-up of ulcerative colitis Providers: ? Mona Turner MD, April Augustine ? RONY Archibald, Shay Maynard MD: ?Davina Barlow MD, Deacon Dior ? [facility]: ? Midazolam 4 mg IV, Fentanyl [...] ? was evaluated using the BBPS ? ([place] Bowel Preparation Scale) ? with scores of: [...] Procedure Code(s): ? --- Professional --- ? 61124, Colonoscopy, flexible; with ? removal of tumor(s), polyp(s), or ? other lesion(s) by snare technique ? 99694, 59, Colonoscopy, flexible; ? with biopsy, single or multiple CPT copyright 2020 [employer]. All rights reserved. The codes documented in this report are preliminary and upon insurance coder review may be revised to meet current compliance requirements. Attending Participation: ? I personally performed the entire procedure. ? Mona Turner MD _ Mona Turner MD 03/28/2022 4:33:58 PM This report has been signed electronically. Number of Addenda: 0 Note Initiated On: 03/28/2022 3:15 PM PROVATION 03/28/2022 3:15 PM EDT Deacon Watters PUMP HOUSE OPERATOR GENERAL SURGICAL O RDERABLES Performing Organization Address City/State/[facility] Co de Phone Number PROVATION [...] RN) documented in this encounter Care Teams Pediatrician Managing Partner Relationship Specialty Start Date End Date Deacon Watters, PUMP HOUSE OPERATOR [address] [place] [address] [address] [place] [address] PCP - General Family Medicine 02/17/22 documented as of this encounter
--- OUTSIDE RECORDS SUMMARY | 2024-07-27 13:38 | XMS_ITS | Encounter Summary ---
Author Organization [facility] Address [facility] [place] [address] Care Team Providers Care Water Meter Installer Name Role Phone Josue Wilkinson MD Primary Care Provider [phone] Encounter Details Date Type Department Care Team (Latest Contact Info) Description 04/29/2021 9:00 AM EDT Office [place] [address] Marcelle Weinberg, JAZMINE [facility] [place] [address] Left sided colitis without complications Social History [...] encounter Progress Notes * Marcelle Weinberg C, CORONER TRANSPORT TECHNICIAN - 04/29/2021 9:00 AM EDT Primary [...] Ref Range Status ??? COLONOSCOPY 02/26/2021 Final Value:[facility] Endoscopy Procedure Date: 02/26/2021 4:21 PM Patient Name: Brian Rodriguez Date of : 1950 Age: 70 Order #: [id number] Instrument Name: [id number] Procedure: Colonoscopy Indications: High risk colon cancer [...] bowel preparation was evaluated using the BBPS (Oscar Bowel Preparation Scale) with scores of: Right [...] Final ??? Surgical Pathology Report 02/26/2021 Final Value:[id number] Location: 4T; EA08; A The signing pathologist [...] MD Verified: 03/04/2021 16:33 Pathologist Performed at: -[facility] Dept. of Pathology, [place], [place] SPECIMEN(S) SUBMITTED A - right colon [...] Disease Center Section of Gastroenterology [place] [address] documented in this encounter Plan of Treatment Upcoming Encounters Date Type Department Care Team (Late st Contact Info) Description 08/15/2024 9:00 AM EDT Office [place] [address] Dion Barlow MD [facility] [place] [address] 09/01/2024 9:40 AM EDT Office Visit Cardiology at [address] [place] [phone] Franky Shaver MD [facility] [place] [address] 09/01/2024 11:20 AM EDT Office Visit Dermatology at [facility] [address] [place] [address] Gómez Mercer MD [facility] DR [place] [address] 09/21/2024 2:45 PM EDT Office Visit Pain and Spine Center at [facility] [place] [address] Trung Hoyos MD [facility] [place] [address] documented as of this encounter Procedures Procedure [...] Absolute 3.34 1.70 - 6.10 x10(3)/ L [facility] Lymph % 23.0 % [facility] Lymphocytes Abs 1.2 0.9 - 3.2 x10(3)/ L [facility] Monocyte % 6.6 % [facility] Monocyte Abs 0.3 0.3 - 0.9 x10(3)/mc L [facility] Eos % 2.9 % [facility] Eosinophils Abs 0.2 0.0 - 0.4 x10(3)/[facility] LABORATORY Basophil % 1.0 % [facility] Baso Absolute 0.0 0.0 - 0.1 x10(3)/[facility] LABORATORY Immature Gran % 1.20 % [facility] Comment: Immature granulocytes(IG's)percentage and absolute count will include metamyelocytes, myelocytes, and promyelocytes. Blood smears from CBCs yielding IG's will be scanned manually for concordance. If this scan disagrees with the automated IG or if promyelocytes are noted, a manual differential will be performed. Immature Gran Absolute 0.06(H) 0.00 - 0.04 x10(3)/ L [facility] Blood 04/29/2021 10:2 2 AM EDT 04/29/2021 10:29 AM EDT Narrative Resulting Agency Comment Spec In Lab Marcelle Weinberg CORONER TRANSPORT TECHNICIAN HEMATOLOGY ORDERA BLES [facility] [place] [address] * (ABNORMAL) Hemogram (04/29/2021 10:22 AM EDT) White Blood Cell 5.1 4.0 - 9.5 x10(3)/ L [facility] Red Blood Cell 3.78(L) 4.58 - 5.54 x10(6)/mc L [facility] Hemoglobin 12.4(L) 13.7 - 16.5 [...] RDW Standard Deviation 45.1(H) 36.0 - 45.0 [facility] LABORATORY RDW coefficient of variation 12.2 11.4 - 13.8 % [facility] Mean Platelet Volume 11.5 7.6 - 12.9 [facility] LABORATORY NRBC% auto 0.0 % [facility] NRBC Absolute 0.000 0.000 - 0.000 x10(3)/mc L [facility] Blood 04/29/2021 10:2 2 AM EDT 04/29/2021 10:29 AM EDT Narrative Resulting Agency Comment Spec In Lab Marcelle Weinberg APRN HEMATOLOGY ORDERA BLES [facility] [place] [address] * CRP, acute inflammation (04/29/2021 10:22 AM EDT) C-Reactive Protein <3.0 <=4.9 mg/L [facility] Blood 04/29/2021 10:2 2 AM EDT 04/29/2021 10:29 AM EDT Narrative Resulting Agency Comment Spec In Lab Marcelle Weinberg CORONER TRANSPORT TECHNICIAN CHEMISTRY ORDERAB LES Performing Organization Address [facility]/ZIP Co de Phone Number [facility] [place] [address] * Sedimentation rate (04/29/2021 10:22 AM EDT) [...] APRN HEMATOLOGY ORDERA BLES Performing Organization Address [facility] Co de Phone Number [facility] [place] [address] * (ABNORMAL) Comprehensive metabolic panel (non-fasting) (04/29/2021 [...] Agency Comment Spec In Lab Marcelle Weinberg CORONER TRANSPORT TECHNICIAN CHEMISTRY ORDERAB LES Performing Organization Address City/State/[facility] Co de Phone Number [facility] [place] [address] documented in this encounter Visit Diagnoses Diagnosis Left sided colitis without complications Left sided ulcerative (chronic) colitis documented in this encounter Care Teams Water Meter Installer Relationship Specialty Start Date End Date Josue Wilkinson MD PCP - General General Internal Medicine 02/14/21 9/ documented as of this encounter
--- OUTSIDE RECORDS SUMMARY | 2024-07-27 13:38 | XMS_ITS | Encounter Summary ---
[place] [address] Care Team Providers Care Taker Away Name Role Phone Deacon Watters APRN Primary Care Provider [phone] Encounter Details Date Type Department Care Team (Latest Contact Info) Description 02/19/2022 10:52 AM EDT - 02/19/2022 11:59 PM EDT [place] [address] Other ulcerative colitis with rectal bleeding Discharge [...] 9:00 AM EDT Office [place] [address] Dion Barlow MD [facility] [place] [address] 09/01/2024 9:40 AM EDT Office Visit Cardiology at [address] [place] [address] Franky Shaver MD [facility] [place] [address] 09/01/2024 11:20 AM EDT Office Visit Dermatology at [facility] [address] [place] [address] Gómez Mercer MD [facility] DR EDD[place] [address] 09/21/2024 2:45 PM EDT Office Visit [place] [phone] Trung Hoyos MD [facility] [place] [address] documented as of this encounter Procedures Procedure [...] Comment Spec In Lab Monalisa C Dragnev BALING PRESS OPERATOR BODY FLUIDS AND S TOOLS ORDERABLES Performing Organization Address [facility] Co de Phone Number [facility] [place] [address] documented in this encounter Visit Diagnoses Diagnosis Other ulcerative colitis with rectal bleeding documented in this encounter Additional Health Concerns Infection Onset Date Last Indicated Resolved Time Rule Out C. difficile 02/19/2022 02/19/20222021 11:33 AM EDT documented as of this encounter Care Teams Taker Away Relationship Specialty Start Date End Date Deacon Watters APRN [address] [place] [address] PCP - General Family Medicine 02/17/22 documented as of this encounter
--- OUTSIDE RECORDS SUMMARY | 2024-07-27 13:38 | XMS_ITS | Encounter Summary ---
Author Organization [facility] [place] [address] Care Team Providers Care Barrel Bridge Assembler Name Role Phone Deacon Watters Priscilla LUCERO Primary Care Provider [phone] Reason for Visit * Reason Onset Date Comments Medication Refill 08/22/2022 Encounter Details Date Type Department Care Team (Late st Contact Info) Description 08/22/2022 [place] [phone] Dion Barlow MD [facility] [place] [address] Social History Tobacco Use Types Packs/Day Years [...] 9:00 AM EDT Office [place] [phone] Dion Barlow MD [facility] [place] [address] 09/01/2024 9:40 AM EDT Office Visit Cardiology at [address] [place] [address] Franky Shaver MD [facility] [place] [address] 09/01/2024 11:20 AM EDT Office Visit Dermatology at [facility] [address] [place] [address] Gómez Mercer MD [facility] [place] [address] 09/21/2024 2:45 PM EDT Office Visit [place] [address] Trung Hoyos MD [facility] [place] [address] documented as of this encounter Visit Diagnoses Not on filedocumented in this encounter Care Teams Barrel Bridge Assembler Relationship Specialty Start Date End Date Deacon Watters, CONE TREATER [address] [place] [address] PCP - General Family Medicine 02/17/22 documented as of this encounter
--- OUTSIDE RECORDS SUMMARY | 2024-07-27 13:38 | XMS_ITS | Encounter Summary ---
[place] [address] Care Team Providers Care Chief Of Anesthesiology Name Role Phone Deacon Watters APRN Primary Care Provider [phone]- [phone] Encounter Details Date Type Department Care Team (Late st Contact Info) Description 05/05/2022 Telephone [place] [phone] Dianna Shen RN Social History Tobacco Use [...] 05/23/2022 8:27 AM EDT Marbella from [facility] called to check on the status of this CT she can be reached at [phone]. * Telephone Encounter - Dianna Shen RN [...] PM EDT left from radiology at [facility]. Due to contrast shortage, contrast [...] 9:00 AM EDT Office [place] [address] Dion Barlow MD [facility] [place] [address] 09/01/2024 9:40 AM EDT Office Visit Cardiology at [address] [address] Franky Shaver MD [facility] [place] [address] 09/01/2024 11:20 AM EDT Office Visit Dermatology at [address] [place] [address] Gómez Mercer MD [facility] DR EDDIE [place] [address] 09/21/2024 2:45 PM EDT Office Visit Pain and Spine Center at [facility] [place] [phone] Trung Hoyos MD [facility] [place] [address] documented as of this encounter Visit Diagnoses Not on filedocumented in this encounter Care Teams Chief Of Anesthesiology Relationship Specialty Start Date End Date Deacon Watters, JAZMINE [address] [place] [address] PCP - General Family Medicine 02/17/22 documented as of this encounter
--- OUTSIDE RECORDS SUMMARY | 2024-07-27 13:38 | XMS_ITS | Encounter Summary ---
Author Organization [facility] Address [facility] [place] [address] Care Team Providers Care Practice Management Consultant Name Role Phone Duong Deacon [place] APRN Primary Care Provider [phone]- [phone] Encounter Details Date Type Department Care Team [...] Office Visit [place] [address] Dion Barlow MD [facility] [place] [address] 09/01/2024 9:40 AM EDT Office Visit Cardiology at [address] [phone] Franky Shaver MD [facility] [place] [address] 09/01/2024 11:20 AM EDT Office Visit Dermatology at [facility] [address] [place] [address] Gómez Mercer MD [facility] DR [place] [address] 09/21/2024 2:45 PM EDT Office Visit [facility] [place] [phone] Trung Hoyos MD [facility] [place] [address] documented as of this encounter Visit Diagnoses Not on filedocumented in this encounter Care Teams Practice Management Consultant Relationship Specialty Start Date End Date Deacon Watters, JAZMINE [address] [place] [address] PCP - General Family Medicine 02/17/22 documented as of this encounter
--- OUTSIDE RECORDS SUMMARY | 2024-07-27 13:38 | XMS_ITS | Encounter Summary ---
Author Organization [facility] [place] [address] Care Team Providers Care Billet Sawyer Name Role Phone Josue Wilkinson MD Primary Care Provider [phone] Encounter Details Date Type Department Care Team (Latest Contact Info) Description 05/31/2021 1:35 PM EDT Laboratory Appointment Lab [address] [place] [phone] Left sided colitis without complications Social History [...] 9:00 AM EDT Office Visit [place] [phone] Dion Barlow MD [facility] [place] [address] 09/01/2024 9:40 AM EDT Office Visit Cardiology at [address] [phone] Franky Shaver MD [facility] [place] [address] 09/01/2024 11:20 AM EDT Office Visit Dermatology at [facility] [address] [place] [address] Gómez Mercer MD [facility] [address] [place] [address] 09/21/2024 2:45 PM EDT Office Visit Pain and Spine Center at [facility], [place] [address] Trung Hoyos MD [facility] [place] [address] documented as of this encounter Procedures Procedure [...] 1:49 PM EDT) Neutrophil % 70.8 % [facility] Neutrophil Absolute 5.02 1.70 - 6.10 x10(3)/[facility] Lymph % 18.5 % [facility] Lymphocytes Abs 1.3 0.9 - 3.2 x10(3)/[facility] Monocyte % 6.9 % [facility] Monocyte Abs 0.5 0.3 - 0.9 x10(3)/[facility] Eos % 2.8 % [facility] Eosinophils Abs 0.2 0.0 - 0.4 x10(3)/[facility] Basophil % 0.6 % [facility] Baso Absolute 0.0 0.0 - 0.1 x10(3)/[facility] Immature Gran % 0.40 % [facility] Comment: Immature granulocytes(IG's)percentage and absolute count will include metamyelocytes, myelocytes, and promyelocytes. Blood smears from CBCs yielding IG's will be scanned manually for concordance. If this scan disagrees with the automated IG or if promyelocytes are noted, a manual differential will be performed. Immature Gran Absolute 0.03 0.00 - 0.04 x10(3)/[facility] Blood 05/31/2021 1:49 PM EDT 05/31/2021 1:52 PM EDT Narrative Resulting Agency Comment Spec In Lab Marcelle Weinberg MANAGER PROJECT MANAGEMENT HEMATOLOGY ORDERA BLES [facility] [place] [address] * (ABNORMAL) Hemogram (05/31/2021 1:49 PM EDT) White Blood Cell 7.1 4.0 - 9.5 x10(3)/[facility] LABORAT[facility] Red Blood Cell 3.85(L) 4.58 - 5.54 x10(6)/ L [facility] Hemoglobin 12.6(L) 13.7 - 16.5 gm/dL [facility] Hematocrit 38.4(L) 40.5 - 48.5 % [facility] Mean Cell Volume 99.7(H) 82.9 - 93.1 fL [facility] Mean Cell Hemoglobin 32.7(H) 27.5 - 32.1 pg [facility] Mean Cell Hemoglobin Concentration 32.8 32.0 - 35.7 gm/dL [facility] Platelet 215 145 - 357 x10(3)/mc L [facility] RDW Standard Deviation 45.1(H) 36.0 - 45.0 fL [facility] RDW coefficient of variation 12.3 11.4 - 13.8 % [facility] Mean Platelet Volume 11.2 7.6 - 12.9 fL [facility] NRBC% auto 0.0 % [facility] NRBC Absolute 0.000 0.000 - 0.000 x10(3)/mc L [facility] Blood 05/31/2021 1:49 PM EDT 05/31/2021 1:52 PM EDT Narrative Resulting Agency Comment Spec In Lab Marcelle Weinberg MANAGER PROJECT MANAGEMENT HEMATOLOGY ORDERA BLES Performing Organization Address City/[facility]/ZIP Co de Phone Number [facility] [place] [address] * Ferritin (05/31/2021 1:49 PM EDT) [facility] Ferritin 94 30 - 400 ng/mL [facility] Comment: Pediatric reference ranges not verified at [facility], interpret with caution. Reference ranges for females greater than 50 years of age approach values for men, i.e., 30-400 ng/mL. Blood 05/31/2021 1:49 PM EDT 05/31/2021 1:52 PM EDT Narrative Resulting Agency Comment Spec In Lab Marcelle Weinberg MANAGER PROJECT MANAGEMENT CHEMISTRY ORDERAB LES Performing Organization Address City/[facility]/ZIP Co de Phone Number [facility] [place] [address] * Iron and TIBC (05/31/2021 1:49 PM EDT) Iron 86 45 - 160 mcg/dL [facility] TIBC 286 250 - 450 mcg/dL [facility] Iron Saturation 30 20 - 50 % [facility] Blood 05/31/2021 1:49 PM EDT 05/31/2021 1:52 PM EDT Narrative Resulting Agency Comment Spec In Lab Marcelle Weinberg MANAGER PROJECT MANAGEMENT CHEMISTRY ORDERAB LES Performing Organization Address City/[facility]/ZIP Co de Phone Number [facility] [place] [place] [address] * Vitamin B12 (05/31/2021 1:49 PM EDT) Vitamin B12 389 232 - 1,245 pg/mL [facility] Blood 05/31/2021 1:49 PM EDT 05/31/2021 1:52 PM EDT Narrative Resulting Agency Comment Spec In Lab Marcelle Dunnjeovannyjania MANAGER PROJECT MANAGEMENT CHEMISTRY ORDERAB LES Performing Organization Address City/[facility]/ZIP Co de Phone Number [facility] [place] [address] documented in this encounter Visit Diagnoses Diagnosis Left sided colitis without complications Left sided ulcerative (chronic) colitis documented in this encounter Care Teams Billet Sawyer Relationship Specialty Start Date End Date Josue Wilkinson MD PCP - General General Internal Medicine 02/14/21 9/3 documented as of this encounter
--- OUTSIDE RECORDS SUMMARY | 2024-07-27 13:38 | XMS_ITS | Encounter Summary ---
Author Organization [facility] [place] [address] Care Team Providers Care Director Payment Name Role Phone Deacon Watters APRN Primary Care Provider [phone] Reason for Referral * Diagnostic Test (Routine) - Closed Specialty Diagnoses / Procedures Referred By Contac t Referred To Contact Radiology Diagnoses Left sided colitis without complications Procedures CT Abdomen & Pelvis w Contrast Dion Barlow MD [facility] [place] [address] Referral ID Status Reason Start Date Expiration Date V isits Requested Visits Authorized [id number] Closed Specialty Service Requested 04/22/2022 10/22/2023 1 1 Reason for Visit * Diagnostic Test (Routine) - Closed Specialty Diagnoses / Procedures Referred By Contac t Referred To Contact Radiology Diagnoses Left sided colitis without complications Procedures CT Abdomen & Pelvis w Contrast Dion Barlow MD [facility] [place] [address] Referral ID Status Reason Start Date Expiration Date V isits Requested Visits Authorized [id number] Closed Specialty Service Requested 04/22/2022 10/22/2023 1 1 Encounter Details Date Type Department Care Team (Latest Contact Info) Description 09/29/2022 1:05 PM EST - 09/29/2022 11:59 PM EST Hospital [place] [address] Dion Barlow MD [facility] [place] [address] Left sided colitis without complications Discharge Disposition: [...] 9:00 AM EDT Office Visit [place] [address] Dion Barlow MD [facility] [place] [address] 09/01/2024 9:40 AM EDT Office Visit Cardiology at [address] [phone] Franky Shaver MD [facility] [place] [address] 09/01/2024 11:20 AM EDT Office Visit Dermatology at [facility] [address] [place] [address] Gómez Mercer MD [facility] DR EDDIE [place] [address] 09/21/2024 2:45 PM EDT Office Visit Pain and Spine Center at [facility] [place] [address] Trung Hoyos MD [facility] [place] [address] documented as of this encounter Procedures Procedure [...] who have questions please contact the health hiv/aids care nurse that requested your imaging first. ? Electronically signed by: Papo Singer MD, [facility] ([phone]), at 09/29/2022 4:46 PM Narrative 09/29/2022 4:46 [...] documented in this encounter Care Teams Director Payment Relationship Specialty Start Date End Date Deacon Watters, JAZMINE [address] [place] [address] PCP - General Family Medicine 02/17/22 documented as of this encounter
--- OUTSIDE RECORDS SUMMARY | 2024-07-27 13:38 | XMS_ITS | Encounter Summary ---
Author Organization [facility] Address [facility] [place] [address] Care Team Providers Care Health Claims Examiner Name Role Phone Josue Wilkinson MD Primary Care Provider [phone] Encounter Details Date Type Department Care Team (Latest Contact Info) Description 02/26/2021 2:52 PM EDT - 02/26/2021 6:22 PM EDT Hospital Encounter [place] [address] Dion Barlow MD [facility] [place] [address] Discharge Disposition: Home Social History Tobacco Use [...] to be checked. Thursday-Thursday Same Day Endo [phone]-[id number] Otherwise contact [phone] and ask to speak to the moss bleacher phonograph needle tip maker Follow up care is a le part [...] 9:00 AM EDT Office [place] [address] Dion Barlow MD [facility] [place] [address] 09/01/2024 9:40 AM EDT Office Visit Cardiology at [address] [place] [address] Franky Shaver MD [facility] [place] [address] 09/01/2024 11:20 AM EDT Office Visit Dermatology at [facility] [address] [place] [address] Gómez Mercer MD [facility] [place] [address] 09/21/2024 2:45 PM EDT Office Visit [place] [address] Trung Hoyos MD [facility] [place] [address] documented as of this encounter Procedures Procedure Name Priority Date/Time Associated Diagnosis Comments POCT GLUCOSE Routine 02/26/2021 5:51 PM EDT SPECIMEN TO PATHOLOGY Routine 02/26/2021 5:10 PM EDT SPECIMEN TO PATHOLOGY Routine 02/26/2021 5:10 PM EDT SPECIMEN TO PATHOLOGY Routine 02/26/2021 5:10 PM EDT SURGICAL PATHOLOGY REPORT Routine 02/26/2021 4:53 PM EDT Colonoscopy, [address] ([id number]) 02/26/2021 4:28 PM EDT a repeat colonoscopy in two years from 02/22/19 COLONOSCOPY Routine 02/26/2021 4:21 PM EDT POCT GLUCOSE Routine 02/26/2021 3:42 PM EDT documented in this encounter Results * POCT Glucose (02/26/2021 5:51 PM EDT) Glucose, POC 160 65 - 199 mg/dL [facility] Comment: Supplemental ranges: <140 mg/dL before meals <180 mg/dL all other times of the day Blood specimen (specimen) 02/26/2021 5:51 PM EDT 02/26/2021 12:00 PM EDT L Karthik Barlow MD POINT OF CARE TEST O CEE Performing Organization Address [facility] Co de Phone Number [facility] [place] [address] * Specimen to Pathology (02/26/2021 5:10 PM EDT) AP Specimen 02/26/2021 5:10 PM EDT 02/26/2021 5:10 PM EDT Narrative [facility] - 02/26/2021 5:10 PM EDT Specimen requisition ordered. ??Separate Pathology report to follow L Karthik Barlow MD PATHOLOGY/CYTOLOGY O CEE Performing Organization Address City/[facility]/ZIP Co de Phone Number [facility] [place] [address] * Specimen to Pathology (02/26/2021 5:10 PM EDT) AP Specimen 02/26/2021 5:10 PM EDT 02/26/2021 5:10 PM EDT Narrative [facility] - 02/26/2021 5:10 PM EDT Specimen requisition ordered. ??Separate Pathology report to follow L Karthik Barlow MD PATHOLOGY/CYTOLOGY O CEE [facility] [place] [address] * Specimen to Pathology (02/26/2021 5:10 PM EDT) AP Specimen 02/26/2021 5:10 PM EDT 02/26/2021 5:10 PM EDT Narrative [facility] - 02/26/2021 5:10 PM EDT Specimen requisition ordered. ??Separate Pathology report to follow L Karthik Barlow MD PATHOLOGY/CYTOLOGY O RDERABLES Performing Organization Address [facility] Co de Phone Number [facility] [place] [address] * Surgical Pathology Report (02/26/2021 4:53 PM EDT) Final Diagnosis [id number] ? Location: 4T; 08; A The signing [...] MD Verified: ??03/04/2021 16:33 ??Pathologist Performed at: ??-[facility] Dept. of Pathology, [place], [place] SPECIMEN(S) SUBMITTED A - right colon [...] labeled C1. ??shb 03/04/2021 4:33 PM EDT [facility] GI Biopsy 02/26/2021 4:53 PM EDT 02/26/2021 4:53 PM EDT GI Biopsy 02/26/2021 4:53 PM EDT 02/26/2021 4:53 PM EDT GI Biopsy 02/26/2021 4:53 PM EDT 02/26/2021 4:53 PM EDT L Karthik Barlow MD PATHOLOGY/CYTOLOGY O DANIELERAOMAR [facility] [place] [address] * COLONOSCOPY (02/26/2021 4:21 PM EDT) COLONOSCOPY [facility] Endoscopy ___ Procedure Date: 02/26/2021 4:21 PM ? Patient Name: Brian Rodriguez ? Date of : 1950 ? Age: 70 ? Order #: [id number] ? Instrument Name: [id number] ? ___ Procedure: ? Colonoscopy Indications: ? [...] preparation was evaluated using ? the BBPS ([place] Bowel Preparation ? Scale) with scores of: [...] Glucose, POC 128 65 - 199 mg/dL [facility] Comment: Supplemental ranges: <140 mg/dL before meals <180 mg/dL all other times of the day Blood specimen (specimen) 02/26/2021 3:42 PM EDT 02/26/2021 12:00 PM EDT Dion Barlow MD POINT OF CARE TEST O RDERABLES [facility] [place] [address] documented in this encounter Visit Diagnoses Not [...] RN) documented in this encounter Care Teams Health Claims Examiner Relationship Specialty Start Date End Date Josue Wilkinson MD PCP - General General Internal Medicine 02/14/2107/26 documented as of this encounter
--- OUTSIDE RECORDS SUMMARY | 2024-07-27 13:38 | XMS_ITS | Encounter Summary ---
Author Organization [facility] Address [facility] [place] [address] Care Team Providers Care Cell Room Operator Name Role Phone Josue Wilkinson MD Primary Care Provider [phone] Encounter Details Date Type Department Care Team (Late st Contact Info) Description 04/30/2021 Telephone [place] [phone] Marcelle Weinberg APRN [facility] [place] [address] Social History Tobacco Use Types Packs/Day Years [...] 9:00 AM EDT Office Visit [place] [address] Dion Barlow MD [facility] [place] [address] 09/01/2024 9:40 AM EDT Office Visit Cardiology at [address] [address] Franky Shaver MD [facility] [place] [address] 09/01/2024 11:20 AM EDT Office Visit Dermatology at [address] [address] Gómez Mercer MD [facility] DR EDDIE SANCHEZ-DERMATOLOGY [place], [place] [address] 09/21/2024 2:45 PM EDT Office Visit [facility] [place] [address] Trung Hoyos MD [facility] [place] [address] documented as of this encounter Results * Vitamin B12 (05/31/2021 1:49 PM EDT) Vitamin B12 389 232 - 1,245 pg/mL [facility] Blood 05/31/2021 1:49 PM EDT 05/31/2021 1:52 PM EDT Narrative Resulting Agency Comment Spec In Lab Marcelle Weinberg [address] PATROL COMMANDER CHEMISTRY ORDERAB LES [facility] [place] [address] * Iron and TIBC (05/31/2021 1:49 PM EDT) Iron 86 45 - 160 mcg/dL [facility] TIBC 286 250 - 450 mcg/dL [facility] Iron Saturation 30 20 - 50 % [facility] Blood 05/31/2021 1:49 PM EDT 05/31/2021 1:52 PM EDT Narrative Resulting Agency Comment Spec In Lab Marcelle Dunnjeovannyjania [address] PATROL COMMANDER CHEMISTRY ORDERAB LES [facility] [place] [address] * Ferritin (05/31/2021 1:49 PM EDT) Ferritin 94 30 - 400 ng/mL [facility] Comment: Pediatric reference ranges not verified at [facility], interpret with caution. Reference ranges for females greater than 50 years of age approach values for men, i.e., 30-400 ng/mL. Blood 05/31/2021 1:49 PM EDT 05/31/2021 1:52 PM EDT Narrative Resulting Agency Comment Spec In Lab Marcelle Dunnjeovannyv [address] PATROL COMMANDER CHEMISTRY ORDERAB LES [facility] [place] [address] documented in this encounter Visit Diagnoses Diagnosis Left sided colitis without complications Left sided ulcerative (chronic) colitis documented in this encounter Care Teams Cell Room Operator Relationship Specialty Start Date End Date Josue Wilkinson MD PCP - General General Internal Medicine 02/14/2107/26 documented as of this encounter
--- OUTSIDE RECORDS SUMMARY | 2024-07-27 13:38 | XMS_ITS | Encounter Summary ---
Author Organization Formerly [facility] Address [facility] [place] [address] Care Team Providers Care Consultant In Ergonomics And Safety Name Role Phone Josue Wilkinson MD Primary Care Provider [phone] Encounter Details Date Type Department Care Team (Late st Contact Info) Description 02/26/2021 4:00 PM EDT - 02/26/2021 5:00 PM EDT Surgery [place] [address] Dion Barlow MD [facility] [place] [address] COLONOSCOPY, POLYPECTOMY, REMOVAL LESION BY SNARE (WRVU [...] to be checked. Thursday-Thursday Same Day Endo [phone]-8p Otherwise contact [phone] and ask to speak to the wire frame dipper security control assessor Follow up care is a le part [...] AM EDT Office Visit [place] [phone] Dion Barlow MD [facility] [place] [place] [address] 09/01/2024 9:40 AM EDT Office Visit Cardiology at [address] [place] [address] Franky Shaver MD [facility] [place] [address] 09/01/2024 11:20 AM EDT Office Visit Dermatology at [facility] [address] [place] [address] Gómez Mercer MD [facility] [place] [address] 09/21/2024 2:45 PM EDT Office Visit [facility] [place] [address] Trung Hoyos MD [facility] [place] [address] documented as of this encounter Procedures Procedure Name Priority Date/Time Associated Diagnosis Comments POCT GLUCOSE Routine 02/26/2021 5:51 PM EDT SPECIMEN TO PATHOLOGY Routine 02/26/2021 5:10 PM EDT SPECIMEN TO PATHOLOGY Routine 02/26/2021 5:10 PM EDT SPECIMEN TO PATHOLOGY Routine 02/26/2021 5:10 PM EDT SURGICAL PATHOLOGY REPORT Routine 02/26/2021 4:53 PM EDT Colonoscopy, Remv Lesmary kay, Snare ([id number]) 02/26/2021 4:28 PM EDT a repeat colonoscopy in two years from 02/22/19 COLONOSCOPY Routine 02/26/2021 4:21 PM EDT POCT GLUCOSE Routine 02/26/2021 3:42 PM EDT documented in this encounter Results * POCT Glucose (02/26/2021 5:51 PM EDT) Glucose, POC 160 65 - 199 mg/dL [facility] Comment: Supplemental ranges: <140 mg/dL before meals <180 mg/dL all other times of the day Blood specimen (specimen) 02/26/2021 5:51 PM EDT 02/26/2021 12:00 PM EDT L Karthik Barlow MD POINT OF CARE TEST O CEE Performing Organization Address [facility]/ZIP Co de Phone Number [facility] [place] [place] [address] * Specimen to Pathology (02/26/2021 5:10 PM EDT) AP Specimen 02/26/2021 5:10 PM EDT 02/26/2021 5:10 PM EDT Narrative [facility] - 02/26/2021 5:10 PM EDT Specimen requisition ordered. ??Separate Pathology report to follow L Karthik Barlow MD PATHOLOGY/CYTOLOGY O CEE Performing Organization Address City/[facility]/ZIP Co de Phone Number [facility] [place] [place] [address] * Specimen to Pathology (02/26/2021 5:10 PM EDT) AP Specimen 02/26/2021 5:10 PM EDT 02/26/2021 5:10 PM EDT Narrative [facility] - 02/26/2021 5:10 PM EDT Specimen requisition ordered. ??Separate Pathology report to follow L Karthik Barlow MD PATHOLOGY/CYTOLOGY O CEE Performing Organization Address City/[facility]/ZIP Co de Phone Number [facility] [place] [address] * Specimen to Pathology (02/26/2021 5:10 PM EDT) AP Specimen 02/26/2021 5:10 PM EDT 02/26/2021 5:10 PM EDT Narrative [facility] - 02/26/2021 5:10 PM EDT Specimen requisition ordered. ??Separate Pathology report to follow L Karthik Barlow MD PATHOLOGY/CYTOLOGY O CEE Performing Organization Address [facility] Co de Phone Number [facility] [place] [address] * Surgical Pathology Report (02/26/2021 4:53 PM EDT) Final Diagnosis [id number] ? Location: 4T; EA08; A The signing [...] MD Verified: ??03/04/2021 16:33 ??Pathologist Performed at: ??-[facility] Dept. of Pathology, [place], [place] SPECIMEN(S) SUBMITTED A - right colon [...] labeled C1. ??shb 03/04/2021 4:33 PM EDT [facility] GI Biopsy 02/26/2021 4:53 PM EDT 02/26/2021 4:53 PM EDT GI Biopsy 02/26/2021 4:53 PM EDT 02/26/2021 4:53 PM EDT GI Biopsy 02/26/2021 4:53 PM EDT 02/26/2021 4:53 PM EDT L Karthik Barlow MD PATHOLOGY/CYTOLOGY O RDERABLES [facility] [place] [address] * COLONOSCOPY (02/26/2021 4:21 PM EDT) COLONOSCOPY [facility] Endoscopy ___ Procedure Date: 02/26/2021 4:21 PM ? Patient Name: Brian Rodriguez ? Date of : 1950 ? Age: 70 ? Order #: [id number] ? Instrument Name: [id number] ? ___ Procedure: ? Colonoscopy Indications: ? [...] preparation was evaluated using ? the BBPS ([place] Bowel Preparation ? Scale) with scores of: [...] Glucose, POC 128 65 - 199 mg/dL [facility] Comment: Supplemental ranges: <140 mg/dL before meals <180 mg/dL all other times of the day Blood specimen (specimen) 02/26/2021 3:42 PM EDT 02/26/2021 12:00 PM EDT Dion Barlow MD POINT OF CARE TEST O RDERABLES Performing Organization Address City/[facility]/ZIP Co de Phone Number [facility] [place] [address] documented in this encounter Visit Diagnoses Not [...] RN) documented in this encounter Care Teams Consultant In Ergonomics And Safety Relationship Specialty Start Date End Date Josue Wilkinson MD PCP - General General Internal Medicine 02/14/2107/26 documented as of this encounter
--- OUTSIDE RECORDS SUMMARY | 2024-07-27 13:38 | XMS_ITS | Encounter Summary ---
Author Organization [facility] Address [facility] [place] [address] Care Team Providers Care Shake Backboard Notcher Name Role Phone Deacon Watters APRN Primary Care Provider [phone]- [phone] Encounter Details Date Type Department Care Team (Late st Contact Info) Description 03/28/2022 3:15 PM EDT - 03/28/2022 4:00 PM EDT Surgery [place] [address] Mona Turner MD [facility] [place] [address] COLONOSCOPY FLEXIBLE, WITH BX (WRVU 3.56) Social [...] occurs, please contact your Doctor. Please call [phone] before 8pm Mon-Fri with problems, questions or concerns. If you call after 8pm or on weekends, call the Hospital at [phone] and ask to speak to the Post Office Clerk surgeon partner and the grain drier operator will contact that person for you. When should you call for help? Call [phone] anytime you think you may need emergency [...] any problems. Where can you learn more? [facility] View your After Visit Summary and more online at [email or web address] If you would like to [...] cost to you. Content Version: 12.2 ?? 5616-4162 [employer]. Care instructions adapted under license by [facility]. If you have questions about a medical condition or this instruction, always ask your healthcare professional. [employer] disclaims any warranty or liability for your [...] EDT Office [place] [phone] Dion Barlow MD [facility] [place] [address] 09/01/2024 9:40 AM EDT Office Visit Cardiology at [address] [phone] Franky Shaver MD [facility] [place] [address] 09/01/2024 11:20 AM EDT Office Visit Dermatology at [address] [address] Gómez Mercer MD [facility] DR ED[place] [address] 09/21/2024 2:45 PM EDT Office Visit [place] [phone] Trung Hoyos MD [facility] [place] [address] documented as of this encounter Procedures Procedure Name Priority Date/Time Associated Diagnosis Comments SURGICAL PATHOLOGY REPORT Routine 03/28/2022 4:22 PM EDT SPECIMEN TO PATHOLOGY Routine 03/28/2022 4:22 PM EDT SPECIMEN TO PATHOLOGY Routine 03/28/2022 4:22 PM EDT SPECIMEN TO PATHOLOGY Routine 03/28/2022 4:22 PM EDT Colonoscopy, Biopsy ([id number]) 03/28/2022 3:30 PM EDT Other ulcerative colitis with rectal bleeding COLONOSCOPY Routine 03/28/2022 3:15 PM EDT documented in this encounter Results * Surgical Pathology Report (03/28/2022 4:22 PM EDT) Final Diagnosis [id number] ? Location: 4T; 12; A The signing [...] ??04/03/2022 15:08 ??Pathologist Performed at: ??-[facility] Dept. of [place]ology, [place], [place] SPECIMEN(S) SUBMITTED A - Sigmoid bx, [...] labeled C1. ??shb 04/03/2022 3:08 PM EDT [facility] GI Biopsy 03/28/2022 4:22 PM EDT 03/28/2022 4:22 PM EDT GI Biopsy 03/28/2022 4:22 PM EDT 03/28/2022 4:22 PM EDT GI Biopsy 03/28/2022 4:22 PM EDT 03/28/2022 4:22 PM EDT Mona Turner MD PATHOLOGY/CYTOLOGY O CEE [facility] [place] [address] * Specimen to Pathology (03/28/2022 4:22 PM EDT) AP Specimen 03/28/2022 4:22 PM EDT 03/28/2022 4:22 PM EDT Narrative [facility] - 03/28/2022 4:22 PM EDT Specimen requisition ordered. ??Separate Pathology report to follow Mona Turner MD PATHOLOGY/CYTOLOGY O CEE [facility] [place] [address] * Specimen to Pathology (03/28/2022 4:22 PM EDT) AP Specimen 03/28/2022 4:22 PM EDT 03/28/2022 4:22 PM EDT Narrative [facility] - 03/28/2022 4:22 PM EDT Specimen requisition ordered. ??Separate Pathology report to follow Mona Turner MD PATHOLOGY/CYTOLOGY O CEE Performing Organization Address [facility] [place] [address] * Specimen to Pathology (03/28/2022 4:22 PM EDT) AP Specimen 03/28/2022 4:22 PM EDT 03/28/2022 4:22 PM EDT Narrative [facility] - 03/28/2022 4:22 PM EDT Specimen requisition ordered. ??Separate Pathology report to follow Mona Turner MD PATHOLOGY/CYTOLOGY O CEE Performing Organization Address [facility] [place] [address] * COLONOSCOPY (03/28/2022 3:15 PM EDT) COLONOSCOPY [facility] Endoscopy Procedure Date: 03/28/2022 3:15 PM ? Patient Name: Brian Rodriguez ? N: [id number] ? Date of : 1950 ? Age: 71 ? Order #: [id number] ? Instrument Name: [id number] ? Procedure: ? Colonoscopy Indications: ? Follow-up of ulcerative colitis Providers: ? Mona Turner MD, April [place] ? Cristela, RONY, Shay Maynard MD: ?LAnalia Barlow MD, Deacon Dior ? [place] Medicines: ? Midazolam 4 mg IV, Fentanyl [...] ? was evaluated using the BBPS ? ([place] Bowel Preparation Scale) ? with scores of: [...] Procedure Code(s): ? --- Professional --- ? 17014, Colonoscopy, flexible; with ? removal of tumor(s), polyp(s), or ? other lesion(s) by snare technique ? 15188, 59, Colonoscopy, flexible; ? with biopsy, single or multiple CPT copyright 2020 [employer]. All rights reserved. The codes documented in this report are preliminary and upon freight dispatcher review may be revised to meet current [...] RN) documented in this encounter Care Teams Shake Backboard Notcher Relationship Specialty Start Date End Date Deacon Watters, JAZMINE [address] [place] [address] [address] [place] [address] PCP - General Family Medicine 02/17/22 documented as of this encounter
--- OUTSIDE RECORDS SUMMARY | 2024-07-27 13:38 | XMS_ITS | Encounter Summary ---
Author Organization [facility] [place] [address] Care Team Providers Care Wrapper And Preserver Name Role Phone Deacon Watters APRN Primary Care Provider [phone]- [phone] Encounter Details Date Type Department Care Team (Late st Contact Info) Description 11/03/2022 Telephone [place] [phone] Jarret Roa RN Social History Tobacco Use [...] Labs and stool studies sent to [facility]- He will call when he [...] - 11/03/2022 2:40 PM EST Per Farideh Weinbreg, BUSINESS PROGRAMMER: Could you please check on him in [...] EDT Office [place] [address] Dion Barlow MD [facility] [place] [address] 09/01/2024 9:40 AM EDT Office Visit Cardiology at [address] [address] Franky Shaver MD [facility] [place] [address] 09/01/2024 11:20 AM EDT Office Visit Dermatology at [facility] [address] [place] [address] Gómez Mercer MD [facility] [place] [address] 09/21/2024 2:45 PM EDT Office Visit Pain and Spine Center at [facility] [place] [address] Trung Hoyos MD [facility] [place] [address] documented as of this encounter Visit Diagnoses Not on filedocumented in this encounter Care Teams Wrapper And Preserver Relationship Specialty Start Date End Date Deacon Watters APRN [address] [place] [address] [address] [place] [address] PCP - General Family Medicine 02/17/22 documented as of this encounter
--- OUTSIDE RECORDS SUMMARY | 2024-07-27 13:38 | XMS_ITS | Encounter Summary ---
[place] [address] Care Team Providers Care Strap Making Machine Operator Name Role Phone Deacon Watters APRN Primary Care Provider [phone]- [phone] Encounter Details Date Type Department Care Team (Late st Contact Info) Description 02/26/2022 Telephone [place] [address] Erika Armas Social History Tobacco Use Types [...] - 02/26/2022 1:04 PM EDT Brian Rodriguez [id number] Diagnosis/Indication: UC, restage disease and for surveillance [...] 9:00 AM EDT Office [place] [address] Dion Barlow MD [facility] [place] [address] 09/01/2024 9:40 AM EDT Office Visit Cardiology at [address] [phone] Franky Shaver MD [facility] [place] [address] 09/01/2024 11:20 AM EDT Office Visit Dermatology at [facility] [address] [place] [address] Gómez Mercer MD [facility] DR EDDIE [place] [address] 09/21/2024 2:45 PM EDT Office Visit Pain and Spine Center at [facility] [place] [phone] Trung Hoyos MD [facility] [place] [address] documented as of this encounter Visit Diagnoses Not on filedocumented in this encounter Care Teams Strap Making Machine Operator Relationship Specialty Start Date End Date Deacon Watters APRN [address] [place] [address] PCP - General Family Medicine 02/17/22 documented as of this encounter
--- OUTSIDE RECORDS SUMMARY | 2024-07-27 13:38 | XMS_ITS | Encounter Summary ---
Author Organization [facility] Address [facility] [place] [address] Care Team Providers Care Nurse Manager Name Role Phone DuongVeliakip Wells APRN Primary Care Provider +1- [phone] Encounter Details Date Type Department Care Team (Late st Contact Info) Description 02/26/2022 Orders Only [place] [phone] Dianna Shen, RN Other ulcerative colitis with [...] 9:00 AM EDT Office Visit [place] [phone] Dion Barlow MD [facility] [place] [address] 09/01/2024 9:40 AM EDT Office Visit Cardiology at [address] [phone] Franky Shaver MD [facility] [place] [address] 09/01/2024 11:20 AM EDT Office Visit Dermatology at [facility] [address] [place] [address] Gómez Mercer MD [facility] DR [place] [address] 09/21/2024 2:45 PM EDT Office Visit [facility] [place] [phone] Trung Hoyos MD [facility] [place] [address] documented as of this encounter Results * CRP, acute inflammation (09/29/2022 12:09 PM EST) Pathologist [facility] C-Reactive Protein <3.0 <=4.9 mg/L [facility] Blood 09/29/2022 12:0 9 PM EST 09/29/2022 12:15 PM EST Narrative Resulting Agency Comment Spec In Lab Marcelle Weinberg MOLD PREPARER CHEMISTRY ORDERAB LES [facility] [place] [address] * Sedimentation rate (09/29/2022 12:09 PM EST) [...] Agency Comment Spec In Lab Marcelle Weinberg MOLD PREPARER HEMATOLOGY ORDERA BLES [facility] [place] [address] documented in this encounter Visit Diagnoses Diagnosis Other ulcerative colitis with rectal bleeding documented in this encounter Care Teams Nurse Manager Relationship Specialty Start Date End Date Deacon Watters APRN [address] [place] [address] PCP - General Family Medicine 02/17/22 documented as of this encounter
--- OUTSIDE RECORDS SUMMARY | 2024-07-27 13:38 | XMS_ITS | Encounter Summary ---
[place] [address] Care Team Providers Care Traffic Rate Clerk Name Role Phone Deacon Watters APRN Primary Care Provider [phone]- [phone] Encounter Details Date Type Department Care Team (Late st Contact Info) Description 02/26/2022 Telephone [place] [phone] Dianna Shen RN Social History Tobacco Use [...] Brian reminding him to get labs. Called [facility] and they had not been done yet. * Telephone Encounter - Dianna Shen RN - 02/26/2022 4:06 PM EDT TC placed to follow up with Brian. Reports improvement in diarrhea. Says he has a scheduled colonoscopy 03/28. Discussed elevation in labs of CRP and ESR, as well as mild anemia per Farideh. Patient plans to have labs rechecked at [facility] on Thursday. documented in this encounter Plan of Treatment Upcoming Encounters Date Type Department Care Team (Late st Contact Info) Description 08/15/2024 9:00 AM EDT Office [place] [phone] Dion Barlow MD [facility] [place] [address] 09/01/2024 9:40 AM EDT Office Visit Cardiology at [address] [address] Franky Shaver MD [facility] [place] [address] 09/01/2024 11:20 AM EDT Office Visit Dermatology at [address] [address] Gómez Mercer MD [facility] DR DEDIE SANCHEZ-DERMATOLOGY [place], [place] [address] 09/21/2024 2:45 PM EDT Office Visit [place] [address] Trung Hoyos MD [facility] [place] [address] documented as of this encounter Visit Diagnoses Not on filedocumented in this encounter Care Teams Traffic Rate Clerk Relationship Specialty Start Date End Date Deacon Watters APRN [address] [place] [address] [address] [facility] [address] [place] [address] PCP - General Family Medicine 02/17/22 documented as of this encounter
--- OUTSIDE RECORDS SUMMARY | 2024-07-27 13:38 | XMS_ITS | Encounter Summary ---
Author Organization [facility] Address [facility] [place] [address] Care Team Providers Care Computer Tape Librarian Name Role Phone DuongVeliakip Wells APRN Primary Care Provider [phone]- [phone] Encounter Details Date Type Department Care Team (Late st Contact Info) Description 11/04/2022 Orders [place] [phone] Dianna Shen, RN Other ulcerative colitis with [...] 9:00 AM EDT Office [place] [phone] Dion Barlow MD [facility] [place] [address] 09/01/2024 9:40 AM EDT Office Visit Cardiology at [address] [address] Franky Shaver MD [facility] [place] [address] 09/01/2024 11:20 AM EDT Office Visit Dermatology at [facility] [address] [place] [phone] Gómez Mercer MD [facility] DR EDDIE [place] [address] 09/21/2024 2:45 PM EDT Office Visit Pain and Spine Center at [facility] [place] [phone] Trung Hoyos MD [facility] [place] [address] documented as of this encounter Visit Diagnoses Diagnosis Other ulcerative colitis with rectal bleeding Left sided colitis without complications Left sided ulcerative (chronic) colitis Diarrhea, unspecified type documented in this encounter Care Teams Computer Tape Librarian Relationship Specialty Start Date End Date Deacon Watters APRN [address] [place] [address] PCP - General Family Medicine 02/17/22 documented as of this encounter
--- OUTSIDE RECORDS SUMMARY | 2024-07-27 13:38 | XMS_ITS | Encounter Summary ---
Author Organization [facility] Address [facility] [place] [address] Care Team Providers Care Steel Fitter Name Role Phone Josue Wilkinson MD Primary Care Provider [phone] Encounter Details Date Type Department Care Team (Late st Contact Info) Description 04/16/2021 Telephone [place] [phone] Mona Cherry Social History Tobacco Use Types [...] 9:00 AM EDT Office [place] [phone] Dion Barlow MD [facility] [place] [address] 09/01/2024 9:40 AM EDT Office Visit Cardiology at [address] [phone] Franky Shaver MD [facility] [place] [address] 09/01/2024 11:20 AM EDT Office Visit Dermatology at [facility] [address] [place] [address] Gómez Mercer MD [facility] [place] [address] 09/21/2024 2:45 PM EDT Office Visit Pain and Spine Center at [place] [address] Trung Hoyos MD [facility] [place] [address] documented as of this encounter Visit Diagnoses Not on filedocumented in this encounter Care Teams Steel Fitter Relationship Specialty Start Date End Date Josue Wilkinson MD PCP - General General Internal Medicine 02/14/21 9/3 documented as of this encounter
--- OUTSIDE RECORDS SUMMARY | 2024-07-27 13:38 | XMS_ITS | Encounter Summary ---
Author Organization [facility] Address [facility] [place] [address] Care Team Providers Care Cycle Specialist Name Role Phone Unknown Primary Care Provider Unavailabl e Encounter Details Date Type Department Care Team (Latest Contact Info) Description 08/26/2021 9:30 AM EDT Office [place] [address] Dion Barlow MD [facility] [place] [address] Other ulcerative colitis with rectal bleeding; Left [...] manometry. - Obtain upper endoscopy report from [facility] in June 2021 - Avoid [...] Overview Note: ?? Colonoscopy 04/08/10 (Dr. Gomes [facility]) - inflammation only within the rectum and sigmoid; extent of the exam was to the hepatic flexure; biopsies proximal to the sigmoid nl ?? Repeat exam 11/27/11 ([facility] [...] dysphagia to solids. Had an EGD at [facility] in Jun and recalls was [...] manometry. - Obtain upper endoscopy report from [facility] in June 2021 - Avoid non-steroidal anti-inflammatory medications (NSAIDs) including but not limited to Advil, ibuprofen, Motrin, Aleve, Excedrin, naproxen, Mobic, indomethacin, and aspirin. Acetaminophen (Tylenol) is okay for aches and pains. - Follow-up in 6 months - will schedule colonoscopy at that time. I spent 30 min today reviewing the chart preparing for this visit, counseling the patient [id number] on the issues outlined above, and documenting an implementing the plan. Davina Barlow MD Senior Engineering Managersupervisor pipe manufacture Co-Director, [facility] Section of Gastroenterology [place] [address] documented in this encounter Plan of Treatment Upcoming Encounters Date Type Department Care Team (Late st Contact Info) Description 08/15/2024 9:00 AM EDT Office [place] [address] Dion Barlow MD [facility] [place] [address] 09/01/2024 9:40 AM EDT Office Visit Cardiology at [address] [place] [phone] Franky Shaver MD [facility] [place] [address] 09/01/2024 11:20 AM EDT Office Visit Dermatology at [facility] [address] [place] [address] Gómez Mercer MD [facility] [place] [address] 09/21/2024 2:45 PM EDT Office Visit [facility] [place] [address] Trung Hoyos MD [facility] [place] [address] documented as of this encounter Visit Diagnoses Diagnosis Other ulcerative colitis with rectal bleeding Left sided colitis without complications Left sided ulcerative (chronic) colitis documented in this encounter Care Teams Cycle Specialist Relationship Specialty Start Date End Date Unknown None PCP - General 08/23/21 02/16/22 documented as of this encounter
--- OUTSIDE RECORDS SUMMARY | 2024-07-27 13:38 | XMS_ITS | Encounter Summary ---
[place] [address] Care Team Providers Care Furrier Apprentice Name Role Phone Duong Deacon Wells APRN Primary Care Provider [phone] Encounter Details Date Type Department Care Team (Late st Contact Info) Description 10/15/2022 Telephone [place] [phone] Roselia Coronado Social History Tobacco Use Types [...] 9:00 AM EDT Office [place] [address] Dion Barlow MD [facility] [place] [address] 09/01/2024 9:40 AM EDT Office Visit Cardiology at [address] [place] [address] Franky Shaver MD [facility] [place] [address] 09/01/2024 11:20 AM EDT Office Visit [facility] at [facility] [address] [place] [address] Gómez Mercer MD [facility] [place] [address] 09/21/2024 2:45 PM EDT Office Visit [facility] [place] [phone] Trung Hoyos MD [facility] [place] [address] documented as of this encounter Visit Diagnoses Not on filedocumented in this encounter Care Teams Furrier Apprentice Relationship Specialty Start Date End Date Deacon Watters, SCRAP PREPARER [address] [facility] [address] [place] [address] PCP - General Family Medicine 02/17/22 documented as of this encounter
--- OUTSIDE RECORDS SUMMARY | 2024-07-27 13:38 | XMS_ITS | Encounter Summary ---
[place] [address] Care Team Providers Care Software Asset Manager Name Role Phone Maximilian Fall MD Primary Care Provider [phone] Encounter Details Date Type Department Care Team (Late st Contact Info) Description 01/17/2021 Telephone [place] [phone] César Garcia Social History Tobacco Use Types [...] - 01/17/2021 1:33 PM EST Brian Rodriguez [id number] Diagnosis/Indication: a repeat colonoscopy in two years [...] EDT Office [place] [address] Dion Barlow MD [facility] [place] [address] 09/01/2024 9:40 AM EDT Office Visit Cardiology at [address] [phone] Franky Shaver MD [facility] [place] [address] 09/01/2024 11:20 AM EDT Office Visit Dermatology at [place] [address] [place] [address] Gómez Mercer MD [facility] DR EDDIE [place] [address] 09/21/2024 2:45 PM EDT Office Visit Pain and Spine Center at [facility] [place] [phone] Trung Hoyos MD [facility] [place] [address] documented as of this encounter Visit Diagnoses Not on filedocumented in this encounter Care Teams Software Asset Manager Relationship Specialty Start Date End Date Maximilian Fall MD [address] [place] [address] PCP - General 10/01/11 02/13/21 documented as of this encounter
--- OUTSIDE RECORDS SUMMARY | 2024-07-27 13:39 | XMS_ITS | Encounter Summary ---
Author Organization [facility]ending [facility] Address [facility] [place] [address] Care Team Providers Care Dock Grader Name Role Phone Maximilian Fall MD Primary Care Provider [phone] Reason for Visit * Reason Comments Follow-up Encounter Details Date Type Department Care Team (Late st Contact Info) Description 05/11/2017 4:00 PM EDT Office [place] [address] Marcelle Weinberg, JAZMINE [facility] [place] [address] Ulcerative colitis without complications, unspecified location Social [...] Overview Note: ? Colonoscopy 04/08/10 (Dr. Gomes [facility]) - inflammation only within the rectum and sigmoid; extent of the exam was to the hepatic flexure; biopsies proximal to the sigmoid nl ?? Repeat exam 11/27/11 [place] mildly active colitis in the sigmoid colon [...] 3.66) performed by Dion Osullivan MD at [facility] ??? PRO COLONOSCOPY, DIAGNOSTIC 11/27/2011 COLONOSCOPY, DIAGNOSTIC performed by Dion OSULLIVAN at [facility] ??? PRO COLONOSCOPY, DIAGNOSTIC 07/13/2014 COLONOSCOPY, DIAGNOSTIC performed by Dion Osullivan MD at [facility] ??? PRO SIGMOIDOSCOPY, DIAGNOSTIC 03/16/2012 FLEXIBLE SIGMOIDOSCOPY performed by YUDI MALLOY at [facility] ??? UPPER GI ENDOSCOPY, EXAM 10/01/2012 UPPER GI ENDOSCOPY performed by Dion OSULLIVAN at [facility] Social History Social History ??? [...] 1140 ?? Resulting lab: [facility] ?? Value: [facility] Endoscopy Procedure Date: 02/12/2017 11:40 AM ? Patient Name: Brian Rodriguez ? Date of : 1950 ? Age: 66 ? Order #: [id number] ? Instrument Name: [id number] ? Procedure: ? Colonoscopy Indications: ? High risk colon cancer surveillance: ?Ulcerative colitis Patient Profile: ? This is a 66 year old male. This ?patient has left-sided ulcerative ?colitis on sulfasalazine and ?Cortifoam and is experiencing mild ?symptoms. Providers: ? L. Karthik Osullivan MD, Vandana Love ?RONY Mckeon, Sonal Segura, ?Adjunct Sociology Professor Referring MD: ?Maximilian Fall MD Medicines: [...] ?bowel preparation was evaluated using ?the BBPS (Lula Bowel Preparation ?Scale) with scores of: Right [...] EDT Office [place] [address] Dion Osullivan MD [facility] [place] [address] 09/01/2024 9:40 AM EDT Office Visit Cardiology at [address] [phone] Franky Shaver MD [facility] [place] [address] 09/01/2024 11:20 AM EDT Office Visit Dermatology at [facility] [address] [place] [address] Gómez Mercer MD [facility] DR EDDIE [place] [address] 09/21/2024 2:45 PM EDT Office Visit Pain and Spine Center at [facility] [place] [phone] Trung Hoyos MD [facility] [place] [address] documented as of this encounter Procedures Procedure [...] 4:21 PM EDT) Neutrophil % 63.1 % [facility] Neutrophil Absolute 4.76 1.70 - 6.10 x10(3)/[facility] Lymph % 25.0 % [facility] Lymphocytes Abs 1.9 0.9 - 3.2 x10(3)/[facility] Monocyte % 7.6 % [facility] Monocyte Abs 0.6 0.3 - 0.9 x10(3)/[facility] Eos % 3.2 % [facility] Eosinophils Abs 0.2 0.0 - 0.4 x10(3)/[facility] Basophil % 0.7 % [facility] Baso Absolute 0.0 0.0 - 0.1 x10(3)/[facility] Immature Gran % 0.40 % [facility] Comment: Immature granulocytes(IG's)percentage and absolute count will include metamyelocytes, myelocytes, and promyelocytes. Blood smears from CBCs yielding IG's will be scanned manually for concordance. If this scan disagrees with the automated IG or if promyelocytes are noted, a manual differential will be performed. Immature Gran Absolute 0.03 0.00 - 0.04 x10(3)/[facility] Blood specimen (specimen) 05/11/2017 4:21 PM EDT 05/11/2017 4:29 PM EDT Narrative Resulting Agency Comment Spec In Lab Marcelle Weinebrg APRN HEMATOLOGY [facility] [place] [address] * (ABNORMAL) Hemogram (05/11/2017 4:21 PM EDT) White Blood Cell 7.5 4.0 - 9.5 x10(3)/mc L [facility] Red Blood Cell 3.98(L) 4.58 - 5.54 x10(6)/ L [facility] Hemoglobin 13.1(L) 13.7 - 16.5 gm/dL [facility] Hematocrit 39.4(L) 40.5 - 48.5 % [facility] Mean Cell Volume 99.0(H) 82.9 - 93.1 fL [facility] Mean Cell Hemoglobin 32.9(H) 27.5 - 32.1 pg [facility] Mean Cell Hemoglobin Concentration 33.2 32.0 - 35.7 gm/dL [facility] Platelet 220 145 - 357 x10(3)/mc L [facility] RDW Standard Deviation 44.6 36.0 - 45.0 fL [facility] RDW coefficient of variation 12.3 11.4 - 13.8 % [facility] Mean Platelet Volume 11.1 7.6 - 12.9 fL [facility] NRBC% auto 0.0 % [facility] NRBC Absolute 0.000 0.000 - 0.000 x10(3)/mc L [facility] Blood specimen (specimen) 05/11/2017 4:21 PM EDT 05/11/2017 4:29 PM EDT Narrative Resulting Agency Comment Spec In Lab Marcelle Weinberg OPERATIONS SUPERINTENDENT HEMATOLOGY ORDER[facility] BL[facility] [place] [address] * CRP, acute inflammation (05/11/2017 4:21 PM EDT) [facility] C-Reactive Protein 2.3 <=4.9 mg/L [facility] Blood specimen (specimen) 05/11/2017 4:21 PM EDT 05/11/2017 4:29 PM EDT Narrative Resulting Agency Comment Spec In Lab Marcelle Weinberg OPERATIONS SUPERINTENDENT CHEMISTRY ORDERAB LES [facility] [place] [address] * (ABNORMAL) Sedimentation rate (05/11/2017 4:21 PM EDT) Sedimentation Rate Automated 19(H) 0 - 15 mm/hr [facility] Blood specimen (specimen) 05/11/2017 4:21 PM EDT 05/11/2017 4:29 PM EDT Narrative Resulting Agency Comment Spec In Lab Marcelle Weinberg OPERATIONS SUPERINTENDENT HEMATOLOGY ORDERA BLES [facility] [place] [address] * (ABNORMAL) CMP w/fasting Glucose (05/11/2017 4:21 PM EDT) Glucose Fasting 91 65 - 99 mg/dL [facility] Comment: ?Fasting* Glucose Interpretive [...] of Diabetes Mellitus, Position Statement from the [place] [employer]. ??Diabetes Care, Volume 33, Supplement 1, Nov 2009 Blood Urea Nitrogen 20 10 - 20 mg/dL [facility] Creatinine 1.17 0.80 - 1.50 mg/dL [facility] Comment: Please note that the pediatric reference intervals supplied above were not validated at [facility]. Results from pediatric patients should be interpreted in conjunction to the patient's age, height and muscle mass. Sodium 143 135 - 145 mmol/L [facility] Potassium 4.9 3.5 - 5.0 mmol/L [facility] Comment: Please note: ??Patients with WBC >100,000 may have falsely elevated Potassium levels. ??For accurate Potassium quantification in these patients send serum separator tube (gold top) for subsequent determinations. ??Contact the Clinical Chemistry Laboratory if there are any questions. Chloride 103 98 - 107 mmol/L [facility] Carbon Dioxide 26 22 - 31 mmol/L [facility] Anion Gap 14 5 - 15 mmol/L [facility] Calcium 9.9 8.5 - 10.5 mg/dL [facility] Protein, Total 8.2(H) 6.1 - 8.0 gm/dL [facility] Albumin 4.3 3.2 - 5.2 gm/dL [facility] Aspartate Aminotransferase 13 0 - 39 unit/L [facility] Alanine Aminotransferase 21 0 - 55 unit/L [facility] Alkaline Phosphatase 58 40 - 120 unit/L [facility] [...] the following links into your internet browser. [email or web address] Blood specimen (specimen) 05/11/2017 4:21 PM EDT 05/11/2017 4:29 PM EDT Narrative Resulting Agency Comment Spec In Lab Marcelle Weinberg OPERATIONS SUPERINTENDENT CHEMISTRY ORDERAB LES [facility] [place] [address] documented in this encounter Visit Diagnoses Diagnosis Ulcerative colitis without complications, unspecified location documented in this encounter Care Teams Dock Grader Relationship Specialty Start Date End Date Maximilian Fall MD [address] [place] [address] PCP - General 10/01/11 02/13/21 documented as of this encounter
--- OUTSIDE RECORDS SUMMARY | 2024-07-27 13:39 | XMS_ITS | Encounter Summary ---
Author Organization [facility] [place] [address] Care Team Providers Care Sewer System Supervisor Name Role Phone Maximilian Fall MD Primary Care Provider [phone] Reason for Visit * Reason Onset Date Comments Medication Refill 03/12/2018 Encounter Details Date Type Department Care Team (Late st Contact Info) Description 03/12/2018 Refill [place] [address] Bethany Trivedi, RN Pain in right hip; [...] AM EDT Office Visit [place] [phone] Dion Barlow MD [facility] [place] [address] 09/01/2024 9:40 AM EDT Office Visit Cardiology at [address] [place] [phone] Franky Shaver MD [facility] [place] [address] 09/01/2024 11:20 AM EDT Office Visit Dermatology at [facility] [address] [place] [address] Gómez Mercer MD [facility] DR [place] [address] 09/21/2024 2:45 PM EDT Office Visit [facility] [place] [address] Trung Hoyos MD [facility] [place] [address] documented as of this encounter Visit Diagnoses Diagnosis Pain in right hip Pain in joint, pelvic region and thigh Chronic ulcerative enterocolitis, unspecified complication documented in this encounter Care Teams Sewer System Supervisor Relationship Specialty Start Date End Date Maximilian Fall MD [address] [place] [address] PCP - General 10/01/11 02/13/21 documented as of this encounter
--- OUTSIDE RECORDS SUMMARY | 2024-07-27 13:39 | XMS_ITS | Encounter Summary ---
Author Organization [facility] Address [facility] [place] [address] Care Team Providers Care It Engineer Name Role Phone Maximilian Fall MD Primary Care Provider [phone] Encounter Details Date Type Department Care Team (Latest Contact Info) Description 04/25/2019 10:00 AM EDT Office [place] [address] Marcelle Weinberg APRN [facility] [place] [address] Left sided colitis without complications Social History [...] and have it re read here at [facility] # Colonoscopy again spring 2020. # Avoid [...] the sigmoid nl ?? Repeat exam 11/27/11 ([facility]): mildly active colitis in the sigmoid colon [...] Dion Osullivan MD at [facility] ??? PRO COLONOSCOPY, DIAGNOSTIC ?? 11/27/2011 ?? COLONOSCOPY, DIAGNOSTIC performed by Dion OSULLIVAN at [facility] ??? PRO COLONOSCOPY, DIAGNOSTIC ?? 07/13/2014 ?? COLONOSCOPY, DIAGNOSTIC performed by Dion Osullivan MD at [facility] ??? PRO SIGMOIDOSCOPY, DIAGNOSTIC ?? 03/16/2012 ?? FLEXIBLE SIGMOIDOSCOPY performed by YUDI MALLOY at [facility] ??? UPPER GI ENDOSCOPY, EXAM ?? 10/01/2012 ?? UPPER GI ENDOSCOPY performed by Dion OSULLIVAN at [facility] ? Social History ?? Socioeconomic [...] mg/L 5.0 (H) Surgical Pathology Report Unknown [id number] ... COLONOSCOPY Unknown [facility]... COLONOSCOPY COLONOSCOPY Collected: 02/22/19 [id number] Resulting lab: PROVATION Value: [facility] Endoscopy Procedure Date: 02/22/2019 3:57 PM ? Patient Name: Brian Rodriguez ? Date of : 1950 ? Age: 68 ? Order #: [id number] ? Instrument Name: [id number] ? Procedure: ? Colonoscopy Indications: ? High [...] ?bowel preparation was evaluated using ?the BBPS ([place] Bowel Preparation ?Scale) with scores of: Right [...] HARVEY, Ana Verified: ??02/26/2019 ?Pathologist Performed at: ??-[facility] Dept. of Pathology, [place], [place] 03/07/19 CT abd/pelvis ( [facility]): Non [...] and have it re read here at [facility] # Colonoscopy again spring 2020. # Avoid [...] 9:00 AM EDT Office [place] [address] Dion Osullivan MD [facility] [place] [address] 09/01/2024 9:40 AM EDT Office Visit Cardiology at [address] [place] [address] Franky Shaver MD [facility] [place] [address] 09/01/2024 11:20 AM EDT Office Visit Dermatology at [facility] [address] [place] [address] Gómez Mercer MD [facility] DR EDDIE [place] [address] 09/21/2024 2:45 PM EDT Office Visit Pain and Spine Center at [facility] [place] [address] Trung Hoyos MD [facility] [place] [address] Scheduled Orders Name Type Priority Associated Diagnoses [...] LABORATORY Neutrophil Absolute 4.90 1.70 - 6.10 x10(3)/[facility] LABORATORY Lymph % 24.0 % [facility] Lymphocytes Abs 1.8 0.9 - 3.2 x10(3)/[facility] LABORATORY Monocyte % 6.8 % [facility] Monocyte Abs 0.5 0.3 - 0.9 x10(3)/[facility] LABORATORY Eos % 2.0 % [facility] Eosinophils Abs 0.2 0.0 - 0.4 x10(3)/[facility] Basophil % 0.5 % [facility] Baso Absolute 0.0 0.0 - 0.1 x10(3)/[facility] Immature Gran % 0.40 % [facility] Comment: Immature granulocytes(IG's)percentage and absolute count will include metamyelocytes, myelocytes, and promyelocytes. Blood smears from CBCs yielding IG's will be scanned manually for concordance. If this scan disagrees with the automated IG or if promyelocytes are noted, a manual differential will be performed. Immature Gran Absolute 0.03 0.00 - 0.04 x10(3)/[facility] LABORATORY Blood specimen (specimen) 04/25/2019 12:00 PM EDT 04/25/2019 12:03 PM EDT Narrative Resulting Agency Comment Spec In Lab Marcelle Weinberg [employer] HEMAT[employer] ORDERA BLES [facility] [place] [address] * (ABNORMAL) Hemogram (04/25/2019 12:00 PM EDT) White Blood Cell 7.4 4.0 - 9.5 x10(3)/mc L [facility] Red Blood Cell 4.22(L) 4.58 - 5.54 x10(6)/mc L [facility] Hemoglobin 13.7 13.7 - 16.5 gm/dL [facility] Hematocrit 41.9 40.5 - 48.5 % [facility] Mean Cell Volume 99.3(H) 82.9 - 93.1 fL [facility] Mean Cell Hemoglobin 32.5(H) 27.5 - 32.1 pg [facility] Mean Cell Hemoglobin Concentration 32.7 32.0 - 35.7 gm/dL [facility] Platelet 239 145 - 357 x10(3)/mc L [facility] RDW Standard Deviation 45.9(H) 36.0 - 45.0 fL [facility] RDW coefficient of variation 12.6 11.4 - 13.8 % [facility] Mean Platelet Volume 11.0 7.6 - 12.9 fL [facility] NRBC% auto 0.0 % [facility] NRBC Absolute 0.000 0.000 - 0.000 x10(3)/mc L [facility] Blood specimen (specimen) 04/25/2019 12:00 PM EDT 04/25/2019 12:03 PM EDT Narrative Resulting Agency Comment Spec In Lab Marcelle Weinberg [employer] H[employer]AT[employer] ORDERA BLES Performing Organization Address [facility] Co de Phone Number [facility] [place] [address] * CRP, acute inflammation (04/25/2019 12:00 PM EDT) C-Reactive Protein 2.5 <=4.9 mg/L [facility] Blood specimen (specimen) 04/25/2019 12:00 PM EDT 04/25/2019 12:03 PM EDT Narrative Resulting Agency Comment Spec In Lab Marcelle Weinberg [employer] CHEMISTRY ORDERAB LES Performing Organization Address City/[facility]/ZIP Co de Phone Number [facility] [place] [address] * (ABNORMAL) Sedimentation rate (04/25/2019 12:00 PM EDT) Sedimentation Rate Automated 28(H) 0 - 15 mm/hr [facility] Blood specimen (specimen) 04/25/2019 12:00 PM EDT 04/25/2019 12:03 PM EDT Narrative Resulting Agency Comment Spec In Lab Marcelle Weinberg [employer] HEMATOLOGY ORDERA BLES [facility] [place] [address] * (ABNORMAL) Comprehensive metabolic panel (non-fasting) (04/25/2019 12:00 PM EDT) Glucose 84 65 - 199 mg/dL [facility] Comment:Diabetes: >=200 mg/d L plus symptoms Blood Urea Nitrogen 15 10 - 20 mg/dL [facility] Creatinine 1.14 0.80 - 1.50 mg/dL [facility] Sodium 140 135 - 145 mmol/L [facility] Potassium 4.8 3.5 - 5.0 mmol/L [facility] Comment: Please note: ??Patients with WBC >100,000 may have falsely elevated Potassium levels. ??For accurate Potassium quantification in these patients send serum separator tube (gold top) for subsequent determinations. ??Contact the Clinical Chemistry Laboratory if there are any questions. Chloride 104 98 - 107 mmol/L [facility] Carbon Dioxide 25 22 - 31 mmol/L [facility] Anion Gap 11 5 - 15 mmol/L [facility] Calcium 9.8 8.5 - 10.5 mg/dL [facility] Protein, Total 8.5(H) 6.1 - 8.0 gm/dL [facility] Albumin 4.4 3.2 - 5.2 gm/dL [facility] Aspartate Aminotransferase 12 0 - 39 unit/L [facility] Alanine Aminotransferase 14 0 - 55 unit/L [facility] Alkaline Phosphatase 70 40 - 120 unit/L [facility] Bilirubin, Total 0.4 0.2 - 1.3 mg/dL [facility] Est Glomerular Filtration Rate 65 >=60 mL/min/1. 73 m?? [facility] Comment: The eGFR was calculated using the CKD-EPI equation. As with all creatinine based estimates of kidney function, eGFR values calculated with the CKD-EPI equation are not accurate in patients with acute kidney failure, extremes of body mass or the acutely ill. http://[facility] eGFR 75 >=60 mL/min/1. 73 m?? [facility] Comment: The eGFR was calculated using the CKD-EPI equation. As with all creatinine based estimates of kidney function, eGFR values calculated with the CKD-EPI equation are not accurate in patients with acute kidney failure, extremes of body mass or the acutely ill. http://[facility] Blood specimen (specimen) 04/25/2019 12:00 PM EDT 04/25/2019 12:03 PM EDT Narrative Resulting Agency Comment Spec In Lab Marcelle Weinberg [employer] CHEMISTRY ORDERAB LES Performing Organization Address City/State/[facility] Co de Phone Number [facility] [place] [address] documented in this encounter Visit Diagnoses Diagnosis Left sided colitis without complications Left sided ulcerative (chronic) colitis documented in this encounter Care Teams It Engineer Relationship Specialty Start Date End Date Maximilian Fall MD [address] [place] [address] PCP - General 10/01/11 02/13/21 documented as of this encounter
--- OUTSIDE RECORDS SUMMARY | 2024-07-27 13:39 | XMS_ITS | Encounter Summary ---
Author Organization [facility] [place] [address] Care Team Providers Care Retail Attendant Name Role Phone Maximilian Fall MD Primary Care Provider [phone] Reason for Visit * Reason Onset Date Comments Medication Refill 06/27/2019 Encounter Details Date Type Department Care Team (Late st Contact Info) Description 06/27/2019 Refill [place] [address] Sophia Coleman, CCMA Social History Tobacco Use [...] 9:00 AM EDT Office [place] [address] Dion Barlow MD [facility] [place] [address] 09/01/2024 9:40 AM EDT Office Visit Cardiology at [address] [phone] Franky Shaver MD [facility] [place] [address] 09/01/2024 11:20 AM EDT Office Visit Dermatology at [facility] [address] [place] [address] Gómez Mercer MD [facility] DR EDDIE [place] [address] 09/21/2024 2:45 PM EDT Office Visit Pain and Spine Center at [facility] [place] [address] Trung Hoyos MD [facility] [place] [address] documented as of this encounter Visit Diagnoses Not on filedocumented in this encounter Care Teams Retail Attendant Relationship Specialty Start Date End Date Maximilian Fall MD [address] [place] [address] PCP - General 10/01/11 02/13/21 documented as of this encounter
--- OUTSIDE RECORDS SUMMARY | 2024-07-27 13:39 | XMS_ITS | Encounter Summary ---
Author Organization [facility] Address [facility] [place] [address] Care Team Providers Care Distillery Worker Name Role Phone Maximilian Fall MD Primary Care Provider [phone] Encounter Details Date Type Department Care Team (Late st Contact Info) Description 02/22/2019 3:30 PM EDT - 02/22/2019 4:15 PM EDT Surgery [place] [address] Dion Barlow MD [facility] [place] [address] COLONOSCOPY FLEXIBLE, WITH BX (WRVU 3.56) Social [...] - 02/22/2019 5:05 PM EDT Please call [phone] before 8pm Mon-Fri with problems, questions or concerns. If you call after 8pm or on weekends, call the Hospital at [phone] and ask to speak to the Welfare Investigator transaction manager and the picker box operator will contact that person for you. [...] 9:00 AM EDT Office Visit [place] [address] Dion Barlow MD [facility] [place] [address] 09/01/2024 9:40 AM EDT Office Visit Cardiology at [address] [place] [address] Franky Shaver MD [facility] [place] [address] 09/01/2024 11:20 AM EDT Office Visit Dermatology at [facility] [address] [place] [address] Gómez Mercer MD [facility] DR EDDIE [place] [address] 09/21/2024 2:45 PM EDT Office Visit [facility] [place] [address] Trung Hoyos MD [facility] [place] [address] documented as of this encounter Procedures Procedure [...] PM EDT 02/22/2019 4:56 PM EDT Narrative [facility] - 02/22/2019 4:56 PM EDT Specimen requisition ordered. ??Separate Pathology report to follow L Karthik Barlow MD PATHOLOGY/CYTOLOGY O CEE Performing Organization Address [facility]/[place] [address] * Specimen to Pathology (02/22/2019 4:56 PM EDT) AP Specimen 02/22/2019 4:56 PM EDT 02/22/2019 4:56 PM EDT Narrative [facility] - 02/22/2019 4:56 PM EDT Specimen requisition ordered. ??Separate Pathology report to follow L Karthik Barlow MD PATHOLOGY/CYTOLOGY O CEE Performing Organization Address City/[facility]/[place] [address] * Specimen to Pathology (02/22/2019 4:56 PM EDT) AP Specimen 02/22/2019 4:56 PM EDT 02/22/2019 4:56 PM EDT Narrative [facility] - 02/22/2019 4:56 PM EDT Specimen requisition ordered. ??Separate Pathology report to follow L Karthik Barlow MD PATHOLOGY/CYTOLOGY O CEE Performing Organization Address City/[facility]/ZIP [place] [address] * Specimen to Pathology (02/22/2019 4:56 PM EDT) AP Specimen 02/22/2019 4:56 PM EDT 02/22/2019 4:56 PM EDT Narrative [facility] - 02/22/2019 4:56 PM EDT Specimen requisition ordered. ??Separate Pathology report to follow L Karthik Barlow MD PATHOLOGY/[place] [address] * Specimen to Pathology (02/22/2019 4:56 PM EDT) AP Specimen 02/22/2019 4:56 PM EDT 02/22/2019 4:56 PM EDT Narrative [facility] - 02/22/2019 4:56 PM EDT Specimen requisition ordered. ??Separate Pathology report to follow L Karthik Barlow MD PATHOLOGY/[place] [address] * Specimen to Pathology (02/22/2019 4:56 PM EDT) AP Specimen 02/22/2019 4:56 PM EDT 02/22/2019 4:56 PM EDT Narrative [facility] - 02/22/2019 4:56 PM EDT Specimen requisition ordered. ??Separate Pathology report to follow L Karthik Barlow MD PATHOLOGY/[place] [address] * Specimen to Pathology (02/22/2019 4:56 PM EDT) AP Specimen 02/22/2019 4:56 PM EDT 02/22/2019 4:56 PM EDT [facility] LABORATORY - 02/22/2019 4:56 PM EDT Specimen requisition ordered. ??Separate Pathology report to follow L Karthik Barlow MD PATHOLOGY/CYTOLOGY O CEE Performing Organization Address [facility] Co de Phone Number [facility] [place] [address] * Specimen to Pathology (02/22/2019 4:56 PM EDT) AP Specimen 02/22/2019 4:56 PM EDT 02/22/2019 4:56 PM EDT Narrative [facility] - 02/22/2019 4:56 PM EDT Specimen requisition ordered. ??Separate Pathology report to follow L Karthik Barlow MD PATHOLOGY/CYTOLOGY O CEE Performing Organization Address [facility] de Phone Number [facility] [place] [address] * Surgical Pathology Report (02/22/2019 4:23 PM EDT) Final Diagnosis [id number] ? Location: 4T; EA06; A The signing [...] Tucker MD Verified: ??02/26/2019 ?Pathologist Performed at: ??-[facility] Dept. of Pathology, [place], [place] CLINICAL INFORMATION Specimen Submitted: A - [...] labeled H1-H2. ??apb 02/26/2019 4:24 PM EDT [facility] GI Biopsy 02/22/2019 4:23 PM [...] PATHOLOGY/CYTOLOGY O RDERABLES [facility] [place] [address] * COLONOSCOPY (02/22/2019 3:57 PM EDT) COLONOSCOPY [facility] ___ Procedure Date: 02/22/2019 3:57 PM ? Patient Name: Brian Rodriguez ? Date of : 1950 ? Age: 68 ? Order #: [id number] ? Instrument Name: [id number] ? ___ Procedure: ? Colonoscopy Indications: ? [...] preparation was evaluated using ? the BBPS ([place] Bowel Preparation ? Scale) with scores of: [...] RN) documented in this encounter Care Teams Distillery Worker Relationship Specialty Start Date End Date Maximilian Fall MD [address] [address] PCP - General 10/01/11 02/13/21 documented as of this encounter
--- OUTSIDE RECORDS SUMMARY | 2024-07-27 13:39 | XMS_ITS | Encounter Summary ---
Author Organization [facility] [place] [address] Care Team Providers Care Laborer Golf Course Name Role Phone Maximilian Fall MD Primary Care Provider [phone] Reason for Visit * Reason Onset Date Comments Medication Refill 02/16/2020 Encounter Details Date Type Department Care Team (Late st Contact Info) Description 02/16/2020 Ref[place] [address] Bethany Trivedi, RN Left sided colitis without [...] 9:00 AM EDT Office [place] [address] Dion Barlow MD [facility] [place] [address] 09/01/2024 9:40 AM EDT Office Visit Cardiology at [address] [place] [address] Franky Shaver MD [facility] [place] [address] 09/01/2024 11:20 AM EDT Office Visit Dermatology at [address] [place] [address] Gómez Mercer MD [facility] DR EDDIE [place] [address] 09/21/2024 2:45 PM EDT Office Visit [place] [address] Trung Hoyos MD [facility] [place] [address] documented as of this encounter Visit Diagnoses Diagnosis Left sided colitis without complications Left sided ulcerative (chronic) colitis documented in this encounter Care Teams Laborer Golf Course Relationship Specialty Start Date End Date Maximilian Fall MD [address] [place] [address] PCP - General 10/01/11 02/13/21 documented as of this encounter
--- OUTSIDE RECORDS SUMMARY | 2024-07-27 13:39 | XMS_ITS | Encounter Summary ---
Author Organization [facility] Address [facility] [place] [address] Care Team Providers Care Car Restorer Name Role Phone Maximilian Fall MD Primary Care Provider [phone] Encounter Details Date Type Department Care Team (Latest Contact Info) Description 02/22/2019 2:13 PM EDT - 02/22/2019 5:26 PM EDT Hospital En[place] [address] Dion Barlow MD [facility] [place] [address] Discharge Disposition: Home Social History Tobacco Use [...] - 02/22/2019 5:05 PM EDT Please call [phone] before 8pm Mon-Fri with problems, questions or concerns. If you call after 8pm or on weekends, call the Hospital at [phone] and ask to speak to the Policy Change Clerk big data solutions architect and the coal mill operator will contact that person for you. * Attachments The following attachments cannot be sent through Care Everywhere. * Colonoscopy: Post-op (Maldivian) * Colon Polyps (Maldivian) documented in this encounter Medications at Time [...] 9:00 AM EDT Office [place] [address] Dion Barlow MD [facility] [place] [address] 09/01/2024 9:40 AM EDT Office Visit Cardiology at [address] [place] [address] Franky Shaver MD [facility] [place] [address] 09/01/2024 11:20 AM EDT Office Visit Dermatology at [facility] [address] [place] [address] Gómez Mercer MD [facility] DR DED[place] [address] 09/21/2024 2:45 PM EDT Office Visit [facility] [place] [address] Trung Hoyos MD [facility] [place] [address] documented as of this encounter Procedures Procedure [...] PM EDT 02/22/2019 4:56 PM EDT Narrative [facility] - 02/22/2019 4:56 PM EDT Specimen requisition ordered. ??Separate Pathology report to follow L Karthik Barlow MD PATHOLOGY/CYTOLOGY O RDMELISSA Performing Organization Address [facility]/[place] [address] * Specimen to Pathology (02/22/2019 4:56 PM EDT) AP Specimen 02/22/2019 4:56 PM EDT 02/22/2019 4:56 PM EDT Narrative [facility] - 02/22/2019 4:56 PM EDT Specimen requisition ordered. ??Separate Pathology report to follow L Karthik Barlow MD PATHOLOGY/CYTOLOGY O RDERABLES Performing Organization Address City/[facility]/[place] [address] * Specimen to Pathology (02/22/2019 4:56 PM EDT) AP Specimen 02/22/2019 4:56 PM EDT 02/22/2019 4:56 PM EDT Narrative [facility] - 02/22/2019 4:56 PM EDT Specimen requisition ordered. ??Separate Pathology report to follow L Karthik Barlow MD PATHOLOGY/CYTOLOGY O RDERAOMAR [facility] [place] [address] * Specimen to Pathology (02/22/2019 4:56 PM EDT) AP Specimen 02/22/2019 4:56 PM EDT 02/22/2019 4:56 PM EDT Narrative [facility] - 02/22/2019 4:56 PM EDT Specimen requisition ordered. ??Separate Pathology report to follow L Karthik Barlow MD PATHOLOGY/CYTOLOGY O CEE Performing Organization Address [facility]/[place] [address] * Specimen to Pathology (02/22/2019 4:56 PM EDT) AP Specimen 02/22/2019 4:56 PM EDT 02/22/2019 4:56 PM EDT Narrative [facility] - 02/22/2019 4:56 PM EDT Specimen requisition ordered. ??Separate Pathology report to follow L Karthik Barlow MD PATHOLOGY/CYTOLOGY O CEE Performing Organization Address [facility]/[place] [address] * Specimen to Pathology (02/22/2019 4:56 PM EDT) AP Specimen 02/22/2019 4:56 PM EDT 02/22/2019 4:56 PM EDT Narrative [facility] - 02/22/2019 4:56 PM EDT Specimen requisition ordered. ??Separate Pathology report to follow L Karthik Barlow MD PATHOLOGY/CYTOLOGY O CEE Performing Organization Address [facility] [place] [address] * Specimen to Pathology (02/22/2019 4:56 PM EDT) AP Specimen 02/22/2019 4:56 PM EDT 02/22/2019 4:56 PM EDT Narrative [facility] - 02/22/2019 4:56 PM EDT Specimen requisition ordered. ??Separate Pathology report to follow L Karthik Barlow MD PATHOLOGY/CYTOLOGY O CEE Performing Organization Address [facility] [place] [address] * Specimen to Pathology (02/22/2019 4:56 PM EDT) AP Specimen 02/22/2019 4:56 PM EDT 02/22/2019 4:56 PM EDT Narrative [facility] - 02/22/2019 4:56 PM EDT Specimen requisition ordered. ??Separate Pathology report to follow L Karthik Barlow MD PATHOLOGY/CYTOLOGY O CEE Performing Organization Address [facility] [place] [address] * Surgical Pathology Report (02/22/2019 4:23 PM EDT) Final Diagnosis [id number] ? Location: 4T; EA06; A The signing [...] Tucker MD Verified: ??02/26/2019 ?Pathologist Performed at: ??-[facility] Dept. of Pathology, [place], [place] CLINICAL INFORMATION Specimen Submitted: A - [...] labeled H1-H2. ??apb 02/26/2019 4:24 PM EDT [facility] GI Biopsy 02/22/2019 4:23 PM [...] PATHOLOGY/CYTOLOGY O RDERABLES [facility] [place] [address] * COLONOSCOPY (02/22/2019 3:57 PM EDT) COLONOSCOPY [facility] Endoscopy ___ Procedure Date: 02/22/2019 3:57 PM ? Patient Name: Brian Rodriguez ? Date of : 1950 ? Age: 68 ? Order #: [id number] ? Instrument Name: [id number] ? ___ Procedure: ? Colonoscopy Indications: ? [...] preparation was evaluated using ? the BBPS ([place] Bowel Preparation ? Scale) with scores [...] GENERAL SURGICAL ORD ERABLES Performing Organization Address City/State/[facility] [...] RN) documented in this encounter Care Teams Car Restorer Relationship Specialty Start Date End Date Maximilian Fall MD [address] [place] [address] PCP - General 10/01/11 02/13/21 documented as of this encounter
--- OUTSIDE RECORDS SUMMARY | 2024-07-27 13:39 | XMS_ITS | Encounter Summary ---
Author Organization [facility] [place] [address] Care Team Providers Care Human Resources Benefits Assistant Name Role Phone Maximilian Fall MD Primary Care Provider [phone] Reason for Visit * Reason Onset Date Comments Medication Refill 02/18/2017 Encounter Details Date Type Department Care Team (Late st Contact Info) Description 02/18/2017 Refill [place] [address] Bethany Trivedi, RN Pain in right hip; [...] 9:00 AM EDT Office [place] [address] Dion Barlow MD [facility] [place] [address] 09/01/2024 9:40 AM EDT Office Visit Cardiology at [address] [place] [address] Franky Shaver MD [facility] [place] [address] 09/01/2024 11:20 AM EDT Office Visit Dermatology at [facility] [address] [place] [address] Gómez Mercer MD [facility] DR EDDIE [place] [address] 09/21/2024 2:45 PM EDT Office Visit [facility] [place] [address] Trung Hoyos MD [facility] [place] [address] documented as of this encounter Visit Diagnoses Diagnosis Pain in right hip Pain in joint, pelvic region and thigh Chronic ulcerative enterocolitis, unspecified complication documented in this encounter Care Teams Human Resources Benefits Assistant Relationship Specialty Start Date End Date Maximilian Fall MD [address] [place] [address] PCP - General 10/01/11 02/13/21 documented as of this encounter
--- OUTSIDE RECORDS SUMMARY | 2024-07-27 13:39 | XMS_ITS | Encounter Summary ---
Author Organization [facility] Address [facility] [place] [address] Care Team Providers Care Scanning Manager Name Role Phone Maximilian Fall MD Primary Care Provider [phone] Encounter Details Date Type Department Care Team (Late st Contact Info) Description 02/23/2019 Telephone [place] [address] Suzanne Guillermo Social History Tobacco [...] 9:00 AM EDT Office [place] [address] Dion Barlow MD [facility] [place] [address] 09/01/2024 9:40 AM EDT Office Visit Cardiology at [address] [place] [phone] Franky Shaver MD [facility] [place] [address] 09/01/2024 11:20 AM EDT Office Visit Dermatology at [facility] [address] [place] [address] Gómez Mercer MD [facility] [address] 09/21/2024 2:45 PM EDT Office Visit Pain and Spine Center at [facility], [place] [address] Trung Hoyos MD [facility] [place] [address] documented as of this encounter Visit Diagnoses Not on filedocumented in this encounter Care Teams Scanning Manager Relationship Specialty Start Date End Date Maximilian Fall MD [address] [facility] 1 [place] [address] PCP - General 10/01/11 02/13/21 documented as of this encounter
--- OUTSIDE RECORDS SUMMARY | 2024-07-27 13:39 | XMS_ITS | Encounter Summary ---
[place] [address] Care Team Providers Care Mold Sprayer Name Role Phone Maximilian Fall MD Primary Care Provider [phone] Encounter Details Date Type Department Care Team (Late st Contact Info) Description 04/25/2019 Telephone [place] [address] Brandy Durham Social History Tobacco Use Types [...] conditions (especially heart or lung)?:asthma BMI:30.53 Prep:proclear Production Statistical Clerk?:yes Instructions to patient?:instructions to pt@4L/Exit~jhd documented in this encounter Plan of Treatment Upcoming Encounters Date Type Department Care Team (Late st Contact Info) Description 08/15/2024 9:00 AM EDT Office Visit [place] [address] Dion Barlow MD [facility] [place] [address] 09/01/2024 9:40 AM EDT Office Visit Cardiology at [address] [address] Franky Shaver MD [facility] [place] [address] 09/01/2024 11:20 AM EDT Office Visit Dermatology at [address] [place] [address] Gómez Mercer MD [facility] [place] [address] 09/21/2024 2:45 PM EDT Office Visit [facility] [place] [address] Trung Hoyos MD [facility] [place] [address] documented as of this encounter Visit Diagnoses Not on filedocumented in this encounter Care Teams Mold Sprayer Relationship Specialty Start Date End Date aMximilian Fall MD [address] [facility] [facility] [address] [facility] 1 [place] [address] PCP - General 10/01/11 02/13/21 documented as of this encounter
--- OUTSIDE RECORDS SUMMARY | 2024-07-27 13:39 | XMS_ITS | Encounter Summary ---
Author Organization [facility] [place] [address] Care Team Providers Care Food And Drug Inspector Name Role Phone Maximilian Fall MD Primary Care Provider [phone] Encounter Details Date Type Department Care Team (Late st Contact Info) Description 03/07/2019 Ancillary Procedure [place] [address] Dion Barlow MD [facility] [place] [address] Social History Tobacco Use Types Packs/Day Years [...] 9:00 AM EDT Office [place] [address] Dion Barlow MD [facility] [place] [address] 09/01/2024 9:40 AM EDT Office Visit Cardiology at [address] [place] [address] Franky Shaver MD [facility] [place] [address] 09/01/2024 11:20 AM EDT Office Visit Dermatology at [facility] [address] [place] [address] Gómez Mercer MD [facility] DR EDDIE [place] [address] 09/21/2024 2:45 PM EDT Office Visit [facility] [place] [address] Trung Hoyos MD [facility] [place] [address] documented as of this encounter Procedures Procedure Name Priority Date/Time Associated Diagnosis Comments FILM LIBRARY STORAGE ONLY CT ABDOMEN AND PELVIS Routine 03/07/2019 12:00 AM EDT documented in this encounter Results * Film Library- Storage Only CT Abdomen & Pelvis (03/07/2019 12:00 AM EDT) Narrative [facility] - 04/27/2019 3:15 AM EDT This exam is auto-finalizing. It's purpose is for storage only. L Karthik Barlow MD IMG FILM LIBRARY ORD ERABLES [place], [place] documented in this encounter Visit Diagnoses Not on filedocumented in this encounter Care Teams Food And Drug Inspector Relationship Specialty Start Date End Date Maximilian Fall MD [address] [place] [address] PCP - General 10/01/11 02/13/21 documented as of this encounter
--- OUTSIDE RECORDS SUMMARY | 2024-07-27 13:39 | XMS_ITS | Encounter Summary ---
Author Organization [facility] Address [facility] [place] [address] Care Team Providers Care Venetian Blind Mechanic Name Role Phone Maximilian Fall MD Primary Care Provider [phone] Encounter Details Date Type Department Care Team (Late st Contact Info) Description 02/11/2019 Telephone [place] [address] Rachel Corral Social History Tobacco Use Types [...] - 02/11/2019 10:16 AM EDT Brian Rodriguez [id number] Diagnosis: Ely 1. Have you ever had a colonoscopy before? [x] YES [] NO If Yes, Date of Last Ely:_02/12/17 If yes, did you have any problems with the procedure? [] YES [x] NO Explain: What type of sedation was used: IV 2. Do you take any Blood Thinners? [] YES [x] NO If Yes, type: 3. Do you have a Pacemaker or Defibrillator device? [] YES [x] NO If Yes send [employer] message to [facility] DEVICE CHECK 4. Are you a [...] NO 11. You must have a responsible constitution party stay at the facility during your [...] 9:00 AM EDT Office Visit [place] [address] Dion Barlow MD [facility] [place] [address] 09/01/2024 9:40 AM EDT Office Visit Cardiology at [address] [place] [address] Franky Shaver MD [facility] [place] [address] 09/01/2024 11:20 AM EDT Office Visit Dermatology at [place] [address] [place] [address] Gómez Mercer MD [facility] [place] [address] 09/21/2024 2:45 PM EDT Office Visit [facility] [place] [address] Trung Hoyos MD [facility] [place] [address] documented as of this encounter Visit Diagnoses Not on filedocumented in this encounter Care Teams Venetian Blind Mechanic Relationship Specialty Start Date End Date Maximilian Fall MD [address] [place] [address] PCP - General 10/01/11 02/13/21 documented as of this encounter
--- OUTSIDE RECORDS SUMMARY | 2024-07-27 13:39 | XMS_ITS | Encounter Summary ---
Author Organization [facility] Address [facility] [place] [address] Care Team Providers Care Velocity Shooter Name Role Phone Maximilian Fall MD Primary Care Provider [phone] Encounter Details Date Type Department Care Team (Late st Contact Info) Description 02/22/2019 Orders [place] [address] Dion Barlow MD [facility] [place] [address] Social History Tobacco Use Types Packs/Day Years [...] EDT Office [place] [address] Dion Barlow MD [facility] [place] [address] 09/01/2024 9:40 AM EDT Office Visit Cardiology at [address] [place] [address] Franky Shaver MD [facility] [place] [address] 09/01/2024 11:20 AM EDT Office Visit Dermatology at [facility] [address] [place] [address] Gómez Mercer MD [facility] DR EDDIE SANCHE[place] [address] 09/21/2024 2:45 PM EDT Office Visit [place] [address] Trung Hoyos MD [facility] [place] [address] documented as of this encounter Visit Diagnoses Not on filedocumented in this encounter Care Teams Velocity Shooter Relationship Specialty Start Date End Date Maximilian Fall MD [address] [facility] 1 [place] [address] PCP - General 10/01/11 02/13/21 documented as of this encounter
--- OUTSIDE RECORDS SUMMARY | 2024-07-27 13:39 | XMS_ITS | Encounter Summary ---
Author Organization [facility] Address [facility] [place] [address] Care Team Providers Care Brick Tester Name Role Phone Maximilian Fall MD Primary Care Provider [phone] Encounter Details Date Type Department Care Team (Latest Contact Info) Description 04/28/2019 3:07 PM EDT - 04/28/2019 6:06 PM EDT Hospital En[place] [address] Iza Coates MD [facility] [place] [address] Discharge Disposition: Home Social History Tobacco Use [...] Care Everywhere. * EGD (Upper Endoscopy): Post-op (Tuvaluan) documented in this encounter Medications at Time [...] sedation) Iza Coates MD Gastroenterology attending Pager [phone] documented in this encounter Plan of Treatment Upcoming Encounters Date Type Department Care Team (Late st Contact Info) Description 08/15/2024 9:00 AM EDT Office [place] [address] Dion Barlow MD [facility] [place] [address] 09/01/2024 9:40 AM EDT Office Visit Cardiology at [address] [place] [address] Franky Shaver MD [facility] [place] [address] 09/01/2024 11:20 AM EDT Office Visit Dermatology at [facility] [address] [place] [address] Gómez Mercer MD [facility] DR EDDIE [place] [address] 09/21/2024 2:45 PM EDT Office Visit Pain and Spine Center at [facility] [place] [address] Trung Hoyos MD [facility] [place] [address] documented as of this encounter Procedures Procedure [...] 5:03 PM EDT 04/28/2019 5:03 PM EDT [facility] - 04/28/2019 5:03 PM EDT Specimen requisition ordered. ??Separate Pathology report to follow Iza Coates MD PATHOLOGY/CYTOLOG Y ORDERABLES [facility] [place] [address] * Specimen to Pathology (04/28/2019 5:03 PM EDT) AP Specimen 04/28/2019 5:03 PM EDT 04/28/2019 5:03 PM EDT Narrative [facility] - 04/28/2019 5:03 PM EDT Specimen requisition ordered. ??Separate Pathology report to follow Iza Coates MD PATHOLOGY/CYTOLOG Y ORDERABLES Performing Organization Address [facility] Co de Phone Number [facility] [place] [address] * Surgical Pathology Report (04/28/2019 4:50 PM EDT) Final Diagnosis [id number] ? Location: 4T; EA10; A The signing pathologist has (i) examined the relevant preparation(s) for the specimen(s) and (ii) rendered or confirmed the diagnosis(es). . ?Surgical Pathology DIAGNOSIS A - Random duodenum, biopsy: Duodenal mucosa within normal limits, including preserved villous architecture. B - Fundic gland, polypectomy: Gastric fundic gland polyp. Electronically signed by: ??Joana Soler MD Verified: ??05/02/2019 ?Pathologist Performed at: ??-[facility] [place], [place], [place] CLINICAL INFORMATION Specimen Submitted: A - [...] labeled B1. ??ejr 05/02/2019 4:02 PM EDT [facility] GI Biopsy 04/28/2019 4:50 PM EDT 04/28/2019 4:50 PM EDT GI Biopsy 04/28/2019 4:50 PM EDT 04/28/2019 4:50 PM EDT Iza Coates MD PATHOLOGY/CYTOLOG Y ORDERABLES [facility] [place] [address] * UPPER GI ENDOSCOPY (04/28/2019 4:39 PM EDT) UPPER GI ENDOSCOPY [facility] Endoscopy Procedure Date: 04/28/2019 4:39 PM ? Patient Name: Brian Rodriguez ? Date of : 1950 ? Age: 68 ? Order #: [id number] ? Instrument Name: [id number] ? Procedure: ? Upper GI endoscopy Indications: ? Abnormal CT of the GI tract (duodenal ? thickening) Providers: ? Iza Coates MD, Nohemi Ball, ? RN, Jonathan Ko, Canvas Goods Supervisor Referring MD: ?Maximilian Fall MD Requesting [...] GENERAL SURGICAL ORD ERABLES Performing Organization Address City/[facility] Co de Phone Number [employer] * POCT Glucose (04/28/2019 3:46 PM EDT) Glucose, POC 91 65 - 199 mg/dL [facility] Comment: Supplemental ranges: <140 mg/dL before meals <180 mg/dL all other times of the day Blood specimen (specimen) 04/28/2019 3:46 PM EDT 04/28/2019 3:46 PM EDT Iza Coates MD POINT OF CARE KISHOR T ORDERABLES Performing Organization Address [facility] de Phone Number [facility] [place] [address] documented in this encounter Visit Diagnoses Not [...] RN) documented in this encounter Care Teams Brick Tester Relationship Specialty Start Date End Date Maximilian Fall MD [address] [place] [address] PCP - General 10/01/11 02/13/21 documented as of this encounter
--- OUTSIDE RECORDS SUMMARY | 2024-07-27 13:39 | XMS_ITS | Encounter Summary ---
Author Organization [facility]ly [facility] Address [facility] [place] [address] Care Team Providers Care Sap Payroll Consultant Name Role Phone Maximilian Fall MD Primary Care Provider [phone] Encounter Details Date Type Department Care Team (Latest Contact Info) Description 09/12/2019 3:40 PM EDT Office [place] [phone] Dion Barlow MD [facility] [place] [address] Left sided colitis without complications Social History [...] IBD History: ?? Colonoscopy 04/08/10 (Dr. Gomes [facility]) - inflammation only within the rectum and sigmoid; extent of the exam was to the hepatic flexure; biopsies proximal to the sigmoid nl ?? Repeat exam 11/27/11 ([facility] [...] Final ??? UPPER GI ENDOSCOPY 04/28/2019 Final Value:[facility] Endoscopy Procedure Date: 04/28/2019 4:39 PM Patient Name: Brian Rodriguez Date of : 1950 Age: 68 Order #: [id number] Instrument Name: [id number] Procedure: Upper GI endoscopy Indications: Abnormal CT of the GI tract (duodenal thickening) Providers: Iza Coates MD, Nohemi Ball RN, Jonathan Ko, Wealth Management Manager Referring MD: Maximilian Fall MD Requesting Provider: [...] PM ??? Surgical Pathology Report 04/28/2019 Final Value:[id number] Location: 4T; [facility]; A The signing pathologist has (i) examined the relevant preparation(s) for the specimen(s) and (ii) rendered or confirmed the diagnosis(es). . Surgical Pathology DIAGNOSIS A - Random duodenum, biopsy: Duodenal mucosa within normal limits, including preserved villous architecture. B - Fundic gland, polypectomy: Gastric fundic gland polyp. Electronically signed by: Joana Soler MD Verified: 05/02/2019 Pathologist Performed at: -[facility] Dept. of Pathology, [place], [place] CLINICAL INFORMATION Specimen Submitted: A - [...] patient. Anthony Hamlin [place] [address] ATTENDING ADDENDUM I interviewed and examined Brian [...] sulfasalazine. 15 min of this 20 min azco-ie-jaue visit was spent counseling the patient in the issues outlined above. Davina Barlow MD Tea Room Managerwireless manager Co-Director, [facility] Section of [place]astroenter[place] [address] documented in this encounter Plan of Treatment Upcoming Encounters Date Type Department Care Team (Late st Contact Info) Description 08/15/2024 9:00 AM EDT Office Visit Gastroenterology at [place] [phone] Dion Barlow MD [facility] [place] [address] 09/01/2024 9:40 AM EDT Office Visit Cardiology at [address] [place] [address] Franky Shaver MD [facility] [place] [address] 09/01/2024 11:20 AM EDT Office Visit Dermatology at [place] [address] [place] [phone] Gómez Mercer MD [facility] [place] [address] 09/21/2024 2:45 PM EDT Office Visit [place] [phone] Trung Hoyos MD [facility] [place] [address] documented as of this encounter Visit Diagnoses Diagnosis Left sided colitis without complications Left sided ulcerative (chronic) colitis documented in this encounter Care Teams Sap Payroll Consultant Relationship Specialty Start Date End Date Maximilian Fall MD [address] [facility] 1 [place] [address] PCP - General 10/01/11 02/13/21 documented as of this encounter
--- OUTSIDE RECORDS SUMMARY | 2024-07-27 13:39 | XMS_ITS | Encounter Summary ---
Author Organization [facility] [place] [address] Care Team Providers Care Machine Operator Packaging Name Role Phone Maximilian Fall MD Primary Care Provider [phone] Reason for Visit * Reason Onset Date Comments Medication Refill 03/26/2018 Encounter Details Date Type Department Care Team (Late st Contact Info) Description 03/26/2018 Refill [place] [address] Bethany Trivedi RN Social History Tobacco Use [...] 9:00 AM EDT Office Visit [place] [phone] Dion Barlow MD [facility] [place] [address] 09/01/2024 9:40 AM EDT Office Visit Cardiology at [address] [place] [address] Franky Shaver MD [facility] [place] [address] 09/01/2024 11:20 AM EDT Office Visit Dermatology at [facility] [address] [place] [address] Gómez Mercer MD [facility] [place] [address] 09/21/2024 2:45 PM EDT Office Visit [facility] [place] [address] Trung Hoyos MD [facility] [place] [address] documented as of this encounter Visit Diagnoses Not on filedocumented in this encounter Care Teams Machine Operator Packaging Relationship Specialty Start Date End Date Maximilian Fall MD [address] [facility] 1 [place] [address] PCP - General 10/01/11 02/13/21 documented as of this encounter
--- OUTSIDE RECORDS SUMMARY | 2024-07-27 13:39 | XMS_ITS | Encounter Summary ---
Author Organization [facility] Address [facility] [place] [address] Care Team Providers Care Capping Machine Operator Name Role Phone Maximilian Fall MD Primary Care Provider [phone] Encounter Details Date Type Department Care Team (Late st Contact Info) Description 04/28/2019 4:15 PM EDT - 04/28/2019 4:45 PM EDT Surgery [place] [address] Iza Coates MD [facility] [place] [address] EGD, UPPER GI ENDOSCOPY (WRVU 2.09) Social [...] Care Everywhere. * EGD (Upper Endoscopy): Post-op (British) documented in this encounter Medications at Time [...] sedation) Iza Coates MD Gastroenterology attending Pager [phone] documented in this encounter Plan of Treatment Upcoming Encounters Date Type Department Care Team (Late st Contact Info) Description 08/15/2024 9:00 AM EDT Office Visit [place] [address] Dion Barlow MD [facility] [place] [address] 09/01/2024 9:40 AM EDT Office Visit Cardiology at [address] [phone] Franky Shaver MD [facility] [place] [address] 09/01/2024 11:20 AM EDT Office Visit Dermatology at [facility] [address] [place] [address] Gómez Mercer MD [facility] DR EDDIE [place] [address] 09/21/2024 2:45 PM EDT Office Visit Pain and Spine Center at [facility] [place] [phone] Trung Hoyos MD [facility] [place] [address] documented as of this encounter Procedures Procedure [...] 5:03 PM EDT 04/28/2019 5:03 PM EDT [facility] LABORATORY - 04/28/2019 5:03 PM EDT Specimen requisition ordered. ??Separate Pathology report to follow Iza Coates MD PATHOLOGY/CYTOLOG Y ORDERABLES Performing Organization Address [facility] Co de Phone Number [facility] [place] [address] * Specimen to Pathology (04/28/2019 5:03 PM EDT) AP Specimen 04/28/2019 5:03 PM EDT 04/28/2019 5:03 PM EDT Narrative [facility] LABOR[facility]ORY - 04/28/2019 5:03 PM EDT Specimen requisition ordered. ??Separate Pathology report to follow Iza Coates MD PATHOLOGY/CYTOLOG Y ORDERABLES Performing Organization Address [facility] [place] [address] * Surgical Pathology Report (04/28/2019 4:50 PM EDT) Final Diagnosis [id number] ? Location: 4T; EA10; A The signing pathologist has (i) examined the relevant preparation(s) for the specimen(s) and (ii) rendered or confirmed the diagnosis(es). . ?Surgical Pathology DIAGNOSIS A - Random duodenum, biopsy: Duodenal mucosa within normal limits, including preserved villous architecture. B - Fundic gland, polypectomy: Gastric fundic gland polyp. Electronically signed by: ??Joana Soler MD Verified: ??05/02/2019 ?Pathologist Performed at: ??-[facility] Dept. [place], [place], [place] CLINICAL INFORMATION Specimen Submitted: A - [...] Y ORDERABLES [facility] [place] [address] * UPPER GI ENDOSCOPY (04/28/2019 4:39 PM EDT) UPPER GI ENDOSCOPY [facility] Procedure Date: 04/28/2019 4:39 PM ? Patient Name: Brian Rodriguez ? Date of : 1950 ? Age: 68 ? Order #: [id number] ? Instrument Name: [id number] ? Procedure: ? Upper GI endoscopy Indications: ? Abnormal CT of the GI tract (duodenal ? thickening) Providers: ? Iza Coates MD, Nohemi Ball, ? RN, Jonathan Ko, Layboy Operator Referring MD: ?Maximilian Fall MD Requesting [...] CARE KISHOR T ORDERABLES Performing Organization Address [facility] Co de Phone Number [facility] [place] [address] documented in this encounter Visit Diagnoses Diagnosis [...] RN) documented in this encounter Care Teams Capping Machine Operator Relationship Specialty Start Date End Date Maximilian Fall MD [address] [place] [address] PCP - General 10/01/11 02/13/21 documented as of this encounter
--- OUTSIDE RECORDS SUMMARY | 2024-07-27 13:39 | XMS_ITS | Encounter Summary ---
Author Organization [facility] Address [facility] [place] [address] Care Team Providers Care Market Research Lead Name Role Phone Maximilian Fall MD Primary Care Provider [phone] Encounter Details Date Type Department Care Team (Latest Contact Info) Description 11/02/2018 1:00 PM EST Office Visit [place] [address] Marcelle Weinberg APRN [facility] [place] [address] Left sided colitis without complications Social History [...] ? Overview Note:? Colonoscopy 04/08/10 (Dr. Gomes [facility]) [...] he underwent left inguinal hernia repair at [facility] 2 weeks ago. Once he was [...] by Dion Osullivan MD at [facility] ENDOSCOPY ??? PRO COLONOSCOPY, DIAGNOSTIC 11/27/2011 COLONOSCOPY, DIAGNOSTIC performed by Dion OSULLIVAN at [facility] ENDOSCOPY ??? PRO COLONOSCOPY, DIAGNOSTIC 07/13/2014 COLONOSCOPY, DIAGNOSTIC performed by Dion Osullivan MD at [facility] ENDOSCOPY ??? PRO SIGMOIDOSCOPY, DIAGNOSTIC 03/16/2012 FLEXIBLE SIGMOIDOSCOPY performed by YUDI MALLOY at [facility] ENDOSCOPY ??? UPPER GI ENDOSCOPY, EXAM 10/01/2012 UPPER GI ENDOSCOPY performed by Dion OSULLIVAN at [facility] ENDOSCOPY Social History Socioeconomic History ??? Marital [...] AM EDT Office Visit [place] [address] Dion Osullivan MD [facility] [place] [address] 09/01/2024 9:40 AM EDT Office Visit Cardiology at [address] [place] [phone] Franky Shaver MD [facility] [place] [address] 09/01/2024 11:20 AM EDT Office Visit Dermatology at [facility] [address] [place] [address] Gómez Mercer MD [facility] [place] [address] 09/21/2024 2:45 PM EDT Office Visit [facility] [place] [address] Trung Hoyos MD [facility] [place] [address] documented as of this encounter Procedures Procedure [...] Differential, Automated (11/02/2018 2:35 PM EST) Pathologist [facility] Neutrophil % 61.6 % [facility] LABORATORY Neutrophil Absolute 4.08 1.70 - 6.10 x10(3)/[facility] LABORATORY Lymph % 27.2 % [facility] Lymphocytes Abs 1.8 0.9 - 3.2 x10(3)/[facility] LABORATORY Monocyte % 6.9 % [facility] LABORATORY Monocyte Abs 0.5 0.3 - 0.9 x10(3)/[facility] LABORATORY Eos % 2.9 % [facility] Eosinophils Abs 0.2 0.0 - 0.4 x10(3)/[facility] LABORATORY Basophil % 0.8 % [facility] LABORATORY Baso Absolute 0.0 0.0 - 0.1 x10(3)/[facility] LABORATORY Immature Gran % 0.60 % [facility] Comment: Immature granulocytes(IG's)percentage and absolute count will include metamyelocytes, myelocytes, and promyelocytes. Blood smears from CBCs yielding IG's will be scanned manually for concordance. If this scan disagrees with the automated IG or if promyelocytes are noted, a manual differential will be performed. Immature Gran Absolute 0.04 0.00 - 0.04 x10(3)/[facility] LABORATORY Blood specimen (specimen) 11/02/2018 2:35 PM EST 11/02/2018 2:42 PM EST Narrative Resulting Agency Comment Spec In Lab Marcelle Weinberg DESIGN AGENT HEMATOLOGY ORDERA BLES [facility] [place] [address] * (ABNORMAL) Hemogram (11/02/2018 2:35 PM EST) Pathologist [facility] White Blood Cell 6.6 4.0 - 9.5 x10(3)/[facility] LABORATORY Red Blood Cell 4.08(L) 4.58 - 5.54 x10(6)/mc L [facility] Hemoglobin 13.1(L) 13.7 - 16.5 gm/dL [facility] Hematocrit 40.0(L) 40.5 - 48.5 % [facility] Mean Cell Volume 98.0(H) 82.9 - 93.1 fL [facility] Mean Cell Hemoglobin 32.1 27.5 - 32.1 pg [facility] Mean Cell Hemoglobin Concentration 32.8 32.0 - 35.7 gm/dL [facility] Platelet 236 145 - 357 x10(3)/[facility] LABORATORY RDW Standard Deviation 44.3 36.0 - 45.0 [facility] LABORATORY RDW coefficient of variation 12.3 11.4 - 13.8 % [facility] Mean Platelet Volume 10.6 7.6 - 12.9 [facility] LABORATORY NRBC% auto 0.0 % [facility] LABORATORY NRBC Absolute 0.000 0.000 - 0.000 x10(3)/[facility] LABORATORY Blood specimen (specimen) 11/02/2018 2:35 PM EST 11/02/2018 2:42 PM EST Narrative Resulting Agency Comment Spec In Lab Marcelle Weinberg DESIGN AGENT HEMATOLOGY ORDERA BLES [facility] [place] [address] * (ABNORMAL) CRP, acute inflammation (11/02/2018 2:35 PM EST) [facility] C-Reactive Protein 5.0(H) <=4.9 mg/L [facility] Blood specimen (specimen) 11/02/2018 2:35 PM EST 11/02/2018 2:42 PM EST Narrative Resulting Agency Comment Spec In Lab Marcelle Weinberg DESIGN AGENT CHEMISTRY ORDERAB LES Performing Organization Address City/[facility]/ZIP Co de Phone Number [facility] [place] [address] * (ABNORMAL) Sedimentation rate (11/02/2018 2:35 PM EST) Sedimentation Rate Automated 27(H) 0 - 15 mm/hr [facility] Blood specimen (specimen) 11/02/2018 2:35 PM EST 11/02/2018 2:42 PM EST Narrative Resulting Agency Comment Spec In Lab Marcelle Weinberg DESIGN AGENT HEMATOLOGY ORDERA BLES Performing Organization Address [facility] Co de Phone Number [facility] [place] [address] * (ABNORMAL) Comprehensive metabolic panel (non-fasting) (11/02/2018 2:35 PM EST) Glucose 87 65 - 199 mg/dL [facility] Comment:Diabetes: >=200 mg/d L plus symptoms Blood Urea Nitrogen 15 10 - 20 mg/dL [facility] Creatinine 1.03 0.80 - 1.50 mg/dL [facility] Sodium 140 135 - 145 mmol/L [facility] Potassium 4.3 3.5 - 5.0 mmol/L [facility] Comment: Please note: ??Patients with WBC >100,000 may have falsely elevated Potassium levels. ??For accurate Potassium quantification in these patients send serum separator tube (gold top) for subsequent determinations. ??Contact the Clinical Chemistry Laboratory if there are any questions. Chloride 103 98 - 107 mmol/L [facility] Carbon Dioxide 26 22 - 31 mmol/L [facility] Anion Gap 11 5 - 15 mmol/L [facility] Calcium 9.7 8.5 - 10.5 mg/dL [facility] Protein, Total 8.1(H) 6.1 - 8.0 gm/dL [facility] Albumin 4.0 3.2 - 5.2 gm/dL [facility] Aspartate Aminotransferase 12 0 - 39 unit/L [facility] Alanine Aminotransferase 14 0 - 55 unit/L [facility] Alkaline Phosphatase 73 40 - 120 unit/L [facility] Bilirubin, Total 0.4 0.2 - 1.3 mg/dL [facility] Est Glomerular Filtration Rate 73 >=60 mL/min/1. 73 m?? [facility] Comment: The eGFR was calculated using the CKD-EPI equation. As with all creatinine based estimates of kidney function, eGFR values calculated with the CKD-EPI equation are not accurate in patients with acute kidney failure, extremes of body mass or the acutely ill. [email or web address] eGFR 85 >=60 mL/min/1. 73 m?? [facility] Comment: The eGFR was calculated using the CKD-EPI equation. As with all creatinine based estimates of kidney function, eGFR values calculated with the CKD-EPI equation are not accurate in patients with acute kidney failure, extremes of body mass or the acutely ill. [email or web address] Blood specimen (specimen) 11/02/2018 2:35 PM EST 11/02/2018 2:42 PM EST Narrative Resulting Agency Comment Spec In Lab Marcelle Weinberg DESIGN AGENT CHEMISTRY ORDERAB LES [facility] [place] [address] documented in this encounter Visit Diagnoses Diagnosis Left sided colitis without complications Left sided ulcerative (chronic) colitis documented in this encounter Care Teams Market Research Lead Relationship Specialty Start Date End Date Maximilian Fall MD [address] [place] [address] PCP - General 10/01/11 02/13/21 documented as of this encounter
--- OUTSIDE RECORDS SUMMARY | 2024-07-27 13:39 | XMS_ITS | Encounter Summary ---
Author Organization [facility] [place] [address] Care Team Providers Care Manual Qa Tester Name Role Phone Maxmiilian Fall MD Primary Care Provider [phone] Encounter Details Date Type Department Care Team (Late st Contact Info) Description 04/26/2019 Ancillary Procedure [place] [phone] Dion Barlow MD [facility] [place] [address] Social History Tobacco Use Types Packs/Day Years [...] EDT Office [place] [phone] Dion Barlow MD [facility] [address] 09/01/2024 9:40 AM EDT Office Visit Cardiology at [address] [place] [address] Franky Shaver MD [facility] [place] [address] 09/01/2024 11:20 AM EDT Office Visit Dermatology at [facility] [address] [place] [address] Gómez Mercer MD [facility] DR [place] [address] 09/21/2024 2:45 PM EDT Office Visit [place] [address] Trung Hoyos MD [facility] [place] [address] documented as of this encounter Procedures Procedure Name Priority Date/Time Associated Diagnosis Comments FILM LIBRARY STORAGE ONLY CT ABDOMEN AND PELVIS Routine 04/26/2019 12:00 AM EDT documented in this encounter Results * Film Library- Storage Only CT Abdomen & Pelvis (04/26/2019 12:00 AM EDT) Narrative [facility] - 04/27/2019 3:22 AM EDT This exam is auto-finalizing. It's purpose is for storage only. L Karthik Barlow MD IMG FILM LIBRARY ORD ERABLES [place], [place] documented in this encounter Visit Diagnoses Not on filedocumented in this encounter Care Teams Manual Qa Tester Relationship Specialty Start Date End Date Maximilian Fall MD [address] [place] [address] PCP - General 10/01/11 02/13/21 documented as of this encounter
--- OUTSIDE RECORDS SUMMARY | 2024-07-27 13:39 | XMS_ITS | Encounter Summary ---
Author Organization [facility] [place] [address] Care Team Providers Care Teacher Instrumental Name Role Phone Maximilian Fall MD Primary Care Provider [phone] Encounter Details Date Type Department Care Team (Late st Contact Info) Description 11/02/2018 Telephone [place] [address] Marcelle Weinberg, TIMBER ROBBER [facility] [place] [address] Social History Tobacco Use Types Packs/Day Years [...] Notes * Telephone Encounter - Marcelle Weinberg, TIMBER ROBBER - 11/02/2018 5:27 PM EST I called [...] 9:00 AM EDT Office Visit [place] [address] Dion Barlow MD [facility] [place] [address] 09/01/2024 9:40 AM EDT Office Visit Cardiology at [address] [address] Franky Shaver MD [facility] [place] [address] 09/01/2024 11:20 AM EDT Office Visit Dermatology at [facility] [address] [place] [address] Gómez Mercer MD [facility] [place] [address] 09/21/2024 2:45 PM EDT Office Visit [facility] [place] [address] Trung Hoyos MD [facility] [place] [address] documented as of this encounter Visit Diagnoses Not on filedocumented in this encounter Care Teams Teacher Instrumental Relationship Specialty Start Date End Date Maximilian Fall MD [address] [place] [address] PCP - General 10/01/11 02/13/21 documented as of this encounter
--- OUTSIDE RECORDS SUMMARY | 2024-07-27 13:39 | XMS_ITS | Encounter Summary ---
Author Organization [facility] [place] [place] [address] Care Team Providers Care Teller Coordinator Name Role Phone Maximilian Fall MD Primary Care Provider [phone] Encounter Details Date Type Department Care Team (Latest Contact Info) Description 04/25/2019 12:15 PM EDT Ancillary Procedure [place] [phone] Marcelle Weinberg, JAZMINE [facility] [place] [address] Left sided colitis without complications Social History [...] 9:00 AM EDT Office [place] [phone] [facility] [place] [address] 09/01/2024 9:40 AM EDT Office Visit Cardiology at [address] [place] [address] [facility] [place] [address] 09/01/2024 11:20 AM EDT Office Visit Dermatology at [facility] [address] [place] [address] Gómez Mercer MD [facility] [address] 09/21/2024 2:45 PM EDT Office Visit Pain and Spine Center at [facility] [place] [address] [facility] [place] [address] documented as of this encounter Visit Diagnoses Diagnosis Left sided colitis without complications Left sided ulcerative (chronic) colitis documented in this encounter Care Teams Teller Coordinator Relationship Specialty Start Date End Date Maximilian Fall MD [address] [facility] 1 [place] [address] PCP - General 10/01/11 02/13/21 documented as of this encounter
--- OUTSIDE RECORDS SUMMARY | 2024-07-27 13:39 | XMS_ITS | Encounter Summary ---
Author Organization [facility] [place] [address] Care Team Providers Care Commercial Fishing Vessel Operator Name Role Phone Maximilian Fall MD Primary Care Provider [phone] Reason for Visit * Reason Onset Date Comments Medication Refill 05/03/2018 Encounter Details Date Type Department Care Team (Late Contact Info) Description 05/03/2018 Refill [place] [address] Bethany Trivedi, RN Social History Tobacco Use [...] 9:00 AM EDT Office Visit [place] [phone] Dion Barlow MD [facility] [place] [address] 09/01/2024 9:40 AM EDT Office Visit Cardiology at [address] [phone] [address] [facility] [place] [address] 09/01/2024 11:20 AM EDT Office Visit Dermatology at [facility] [address] [place] [address] Gómez Mercer [address] [facility] [address] [place] [address] 09/21/2024 2:45 PM EDT Office Visit [facility] Sp[facility] at [facility] [place] [phone] Trung Hoyos MD [facility] [place] [address] documented as of this encounter Visit Diagnoses Not on filedocumented in this encounter Care Teams Commercial Fishing Vessel Operator Relationship Specialty Start Date End Date Maximilian Fall MD [address] [place] [address] PCP - General 10/01/11 02/13/21 documented as of this encounter
--- OUTSIDE RECORDS SUMMARY | 2024-07-27 13:39 | XMS_ITS | Encounter Summary ---
Author Organization [place] [address] Care Team Providers Care Field Examiner Name Role Phone Maximilian Fall MD Primary Care Provider [phone] Encounter Details Date Type Department Care Team (Late st Contact Info) Description 11/10/2018 Telephone [place] [address] Rachel Corral Social History Tobacco Use Types [...] 9:00 AM EDT Office [place] [address] Dion Barlow MD [facility] [place] [address] 09/01/2024 9:40 AM EDT Office Visit Cardiology at [address] [phone] Franky Shaver MD [facility] [place] [address] 09/01/2024 11:20 AM EDT Office Visit Dermatology at [address] [place] [phone] Gómez Mercer MD [facility] [address] 09/21/2024 2:45 PM EDT Office Visit [facility] [place] [phone] Trung Hoyos MD [facility] [place] [address] documented as of this encounter Visit Diagnoses Not on filedocumented in this encounter Care Teams Field Examiner Relationship Specialty Start Date End Date Maximilian Fall MD [address] [facility] [facility] [address] [facility] 1 [place] [address] PCP - General 10/01/11 02/13/21 documented as of this encounter
--- OUTSIDE RECORDS SUMMARY | 2024-07-27 13:39 | XMS_ITS | Encounter Summary ---
Author Organization [facility] [place] [address] Care Team Providers Care Impregnating Helper Name Role Phone Maximilian Fall MD Primary Care Provider [phone] Reason for Visit * Reason Onset Date Comments Reminder Appointment 03/20/2020 Encounter Details Date Type Department Care Team (Late st Contact Info) Description 03/20/2020 Telephone [place] [address] Kinjal Durham CMA GASTROENTEROLOGY DEPT Reminder Appointment [...] 9:00 AM EDT Office [place] [address] Dion Barlow MD [facility] [address] 09/01/2024 9:40 AM EDT Office Visit Cardiology at [address] [place] [address] Franky Shaver MD [facility] [place] [address] 09/01/2024 11:20 AM EDT Office Visit Dermatology at [facility] [address] [place] [phone] Gómez Mercer MD [facility] [place] [address] 09/21/2024 2:45 PM EDT Office Visit [place] [phone] Trung Hoyos MD [facility] [address] documented as of this encounter Visit Diagnoses Not on filedocumented in this encounter Care Teams Impregnating Helper Relationship Specialty Start Date End Date Maximilian Fall MD [address] [facility] 1 [place] [address] PCP - General 10/01/11 02/13/21 documented as of this encounter
--- OUTSIDE RECORDS SUMMARY | 2024-07-27 13:39 | XMS_ITS | Encounter Summary ---
Author Organization [facility] [place] [address] Care Team Providers Care Reel Winder Name Role Phone Maximilian Fall MD Primary Care Provider [phone] Encounter Details Date Type Department Care Team (Late st Contact Info) Description 03/01/2020 Tele[place] [phone] Suzanne Guillermo Social History Tobacco Use Types [...] 9:00 AM EDT Office [place] [phone] Dion Barlow MD [facility] [address] GASTROENTEROLOGY [place], [place] [phone] 09/01/2024 9:40 AM EDT Office Visit Cardiology at [address] [place] [phone] Franky Shaver MD [facility] [place] [address] 09/01/2024 11:20 AM EDT Office Visit Dermatology at [facility] [address] [place] [address] Gómez Mercer MD [facility] [place] [address] 09/21/2024 2:45 PM EDT Office Visit Pain and Spine Center at [facility] [place] [address] Trung Hoyos MD [facility] [place] [address] documented as of this encounter Visit Diagnoses Not on filedocumented in this encounter Care Teams Reel Winder Relationship Specialty Start Date End Date Maximilian Fall MD [address] [place] [address] [place] [address] PCP - General 10/01/11 02/13/21 documented as of this encounter
--- OUTSIDE RECORDS SUMMARY | 2024-07-27 13:39 | XMS_ITS | Encounter Summary ---
Author Organization [facility] Address [facility] [place] [address] Care Team Providers Care Human Resource Statistician Name Role Phone Maximilian Fall MD Primary Care Provider [phone] Encounter Details Date Type Department Care Team (Latest Contact Info) Description 05/09/2019 10:20 AM EDT Office [place] [address] Dion Barlow MD [facility] [place] [address] Left sided colitis without complications Social History [...] the sigmoid nl ?? Repeat exam 11/27/11 ([facility] [...] needed 20 min of this 25 min pzxc-ck-rhsi visit was spent counseling the patient in the issues outlined above. Davina Barlow MD Credit Rating Checkerprecision assembly inspector Co-Director, [facility] Section of Gastroenterology [place] [address] documented in this encounter Plan of Treatment Upcoming Encounters Date Type Department Care Team (Late st Contact Info) Description 08/15/2024 9:00 AM EDT Office [place] [address] Dion Barlow MD [facility] [place] [address] 09/01/2024 9:40 AM EDT Office Visit Cardiology at [address] [place] [address] Franky Shaver MD [facility] [place] [address] 09/01/2024 11:20 AM EDT Office Visit Dermatology at [facility] [address] [place] [address] Gómez Mercer MD [facility] [place] [address] 09/21/2024 2:45 PM EDT Office Visit Pain and Spine Center at [facility] [place] [address] Trung Hoyos MD [facility] [place] [address] documented as of this encounter Visit Diagnoses Diagnosis Left sided colitis without complications Left sided ulcerative (chronic) colitis documented in this encounter Care Teams Human Resource Statistician Relationship Specialty Start Date End Date Maximilian Fall MD [address] [facility] 1 [place] [address] PCP - General 10/01/11 02/13/21 documented as of this encounter
--- OUTSIDE RECORDS SUMMARY | 2024-07-27 13:39 | XMS_ITS | Encounter Summary ---
Author Organization [facility] [place] [address] Care Team Providers Care Watch And Clock Repair Clerk Name Role Phone Maximilian Fall MD Primary Care Provider [phone] Encounter Details Date Type Department Care Team (Late st Contact Info) Description 03/26/2018 Telephone [place] [address] Bethany Trivedi, RN Social History Tobacco Use [...] difficulty getting Cortifoam because it is on plant control aide back order. Has been diarrhea and bleeding [...] 9:00 AM EDT Office Visit [place] [address] Dion Barlow MD [facility] [place] [place] [address] 09/01/2024 9:40 AM EDT Office Visit Cardiology at [address] [phone] Franky Shaver MD [facility] [place] [address] 09/01/2024 11:20 AM EDT Office Visit Dermatology at [address] [place] [address] Gómez Mercer MD [facility] [place] [address] 09/21/2024 2:45 PM EDT Office Visit Pain [place] [address] Trung Hoyos MD [facility] [place] [address] documented as of this encounter Visit Diagnoses Not on filedocumented in this encounter Care Teams Watch And Clock Repair Clerk Relationship Specialty Start Date End Date Maximilian Fall MD [address] [facility] [address] [facility] 1 [place] [address] PCP - General 10/01/11 02/13/21 documented as of this encounter
--- OUTSIDE RECORDS SUMMARY | 2024-07-27 13:39 | XMS_ITS | Encounter Summary ---
Author Organization [facility] Address [facility] [place] [address] Care Team Providers Care Image Editor Name Role Phone Maximilian Fall MD Primary Care Provider [phone] Reason for Visit * Reason Comments Follow-up Encounter Details Date Type Department Care Team (Late st Contact Info) Description 10/29/2017 10:30 AM EST Office [place] [address] Dion Barlow MD [facility] [place] [address] Left sided ulcerative colitis with complication Social [...] Note: ? Colonoscopy 04/08/10 (Dr. Gomes [facility] [...] months. 15 min of this 25 min alkk-ip-mclo visit was spent counseling the patient in the issues outlined above. Davina Barlow MD Performance Consultantescalator service mechanic Section of Gastroenterology [place] [address] CC: Maximilian Fall MD [address] [place] [phone] documented in this encounter Plan of Treatment Upcoming Encounters Date Type Department Care Team (Late st Contact Info) Description 08/15/2024 9:00 AM EDT Office [place] [address] Dion Barlow MD [facility] [place] [address] 09/01/2024 9:40 AM EDT Office Visit Cardiology at [address] [place] [address] Franky Shaver MD [facility] [place] [address] 09/01/2024 11:20 AM EDT Office Visit Dermatology at [facility] [address] [place] [address] Gómez Mercer MD [facility] [address] EDDIE [place] [address] 09/21/2024 2:45 PM EDT Office Visit Pain and Spine Center at [facility] [place] [address] Trung Hoyos MD [facility] [place] [address] documented as of this encounter Visit Diagnoses Diagnosis Left sided ulcerative colitis with complication documented in this encounter Care Teams Image Editor Relationship Specialty Start Date End Date Maximilian Fall MD [address] [address] [place] [address] PCP - General 10/01/11 02/13/21 documented as of this encounter
--- OUTSIDE RECORDS SUMMARY | 2024-07-27 13:39 | XMS_ITS | Encounter Summary ---
Author Organization [facility] Address [facility] [place] [address] Care Team Providers Care Cutting Torch Operator Name Role Phone Maximilian Fall MD Primary Care Provider [phone] Encounter Details Date Type Department Care Team (Latest Contact Info) Description 03/20/2020 10:00 AM EDT TH Visit (TeleHealth) [place] [address] Dion Osullivan MD [facility] [place] [address] Other ulcerative colitis with rectal bleeding Social [...] ?? Colonoscopy 04/08/10 (Dr. Gomes [facility]) - inflammation only within [...] by his urology team and [facility]. He reports for a UTI [...] past surgical history that includes Colonoscopy, Diagnostic (08094) (11/27/2011); Sigmoidoscopy, Diagnostic (96409) (03/16/2012); Upper Gi Endoscopy, Exam (32098) (10/01/2012); Colonoscopy, Diagnostic (12932) (07/13/2014); Colonoscopy, Biopsy (76628) (N/A, 02/12/2017); Colonoscopy, Biopsy (53539) (N/A, 02/22/2019); Colonoscopy, Remv Lesn, Snare (38408) (N/A, 02/22/2019); and Upper GI Endoscopy, Diagnostic (88562) (N/A, 04/28/2019). Family History: family history is [...] C. Diff and lactoferrin at [facility]. Also, will call if diarrhea [...] patient on above. Dion OSULLIVAN MD [facility] [place] [address] documented in this encounter Plan of Treatment Upcoming Encounters Date Type Department Care Team (Late st Contact Info) Description 08/15/2024 9:00 AM EDT Office [place] [address] Dion Osullivan MD [facility] [place] [address] 09/01/2024 9:40 AM EDT Office Visit Cardiology at [address] [place] [address] Franky Shaver MD [facility] [place] [address] 09/01/2024 11:20 AM EDT Office Visit Dermatology at [facility] [address] [place] [address] Gómez Mercer MD [facility] [place] [address] 09/21/2024 2:45 PM EDT Office Visit [place] [address] Trung Hoyos MD [facility] [place] [address] documented as of this encounter Visit Diagnoses Diagnosis Other ulcerative colitis with rectal bleeding documented in this encounter Care Teams Cutting Torch Operator Relationship Specialty Start Date End Date Maximilian Fall MD [address] [facility] 1 [place] [address] PCP - General 10/01/11 02/13/21 documented as of this encounter
--- OUTSIDE RECORDS SUMMARY | 2024-07-27 13:39 | XMS_ITS | Encounter Summary ---
Author Organization [facility] Address [facility] [place] [address] Care Team Providers Care Equipment Lead Name Role Phone Maximilian Fall MD Primary Care Provider [phone] Reason for Visit * Reason Comments Follow-up Encounter Details Date Type Department Care Team (Late st Contact Info) Description 05/03/2018 8:30 AM EDT Office Visit [place] [address] Dion Barlow MD [facility] [place] [address] Ulcerative pancolitis with complication Social History Tobacco [...] Note: ? Colonoscopy 04/08/10 (Dr. Gomes [facility]) [...] visit. 15 min of this 25 min luct-ch-xoaa visit was spent counseling the patient in the issues outlined above. Davina Barlow MD Equipment Maintenance Techniciansupervisor cab Section of [place]enter[place] [address] CC: Maximilian Fall MD [address] [place] [id number] documented in this encounter Miscellaneous Notes * Addendum Note - Izabela Spencer - 05/03/2018 9:35 AM EDTAddended by: IZABELA SPENCER on: 05/03/2018 09:35 AM Modules accepted: Orders documented in this encounter Plan of Treatment Upcoming Encounters Date Type Department Care Team (Late st Contact Info) Description 08/15/2024 9:00 AM EDT Office Visit [place] [address] Dion Barlow MD [facility] [place] [address] 09/01/2024 9:40 AM EDT Office Visit Cardiology at [address] [place] [address] Franky Shaver MD [facility] [place] [address] 09/01/2024 11:20 AM EDT Office Visit Dermatology at [facility] [address] [place] [address] Gómez Mercer MD [facility] DR [place] [address] 09/21/2024 2:45 PM EDT Office Visit [facility] at [facility] [place] [address] Trung Hoyos MD [facility] [place] [address] documented as of this encounter Procedures Procedure [...] 9:46 AM EDT) Neutrophil % 62.5 % [facility] Neutrophil Absolute 3.86 1.70 - 6.10 x10(3)/[facility] Lymph % 27.2 % [facility] Lymphocytes Abs 1.7 0.9 - 3.2 x10(3)/[facility] Monocyte % 7.1 % [facility] Monocyte Abs 0.4 0.3 - 0.9 x10(3)/[facility] Eos % 2.1 % [facility] Eosinophils Abs 0.1 0.0 - 0.4 x10(3)/[facility] Basophil % 0.6 % [facility] Baso Absolute 0.0 0.0 - 0.1 x10(3)/[facility] Immature Gran % 0.50 % [facility] Comment: Immature granulocytes(IG's)percentage and absolute count will include metamyelocytes, myelocytes, and promyelocytes. Blood smears from CBCs yielding IG's will be scanned manually for concordance. If this scan disagrees with the automated IG or if promyelocytes are noted, a manual differential will be performed. Immature Gran Absolute 0.03 0.00 - 0.04 x10(3)/[facility] Blood specimen (specimen) 05/03/2018 9:46 AM EDT 05/03/2018 10:12 AM EDT Narrative Resulting Agency Comment Spec In Lab L Karthik Barlow MD HEMATOLOGY ORDERABLE S [facility] [place] [address] * (ABNORMAL) Hemogram (05/03/2018 9:46 AM EDT) White Blood Cell 6.2 4.0 - 9.5 x10(3)/mc L [facility] Red Blood Cell 4.02(L) 4.58 - 5.54 x10(6)/ L [facility] Hemoglobin 13.0(L) 13.7 - 16.5 gm/dL [facility] Hematocrit 39.7(L) 40.5 - 48.5 % [facility] Mean Cell Volume 98.8(H) 82.9 - 93.1 fL [facility] Mean Cell Hemoglobin 32.3(H) 27.5 - 32.1 pg [facility] Mean Cell Hemoglobin Concentration 32.7 32.0 - 35.7 gm/dL [facility] Platelet 202 145 - 357 x10(3)/mc L [facility] RDW Standard Deviation 45.3(H) 36.0 - 45.0 fL [facility] RDW coefficient of variation 12.5 11.4 - 13.8 % [facility] Mean Platelet Volume 11.2 7.6 - 12.9 fL [facility] NRBC% auto 0.0 % [facility] NRBC Absolute 0.000 0.000 - 0.000 x10(3)/mc L [facility] Blood specimen (specimen) 05/03/2018 9:46 AM EDT 05/03/2018 10:12 AM EDT Narrative Resulting Agency Comment Spec In Lab L Karthik Barlow MD HEMATOLOGY ORDERABLE S Performing Organization Address City/[facility]/ZIP Co de Phone Number [facility] [place] [address] * CRP, acute inflammation (05/03/2018 9:46 AM EDT) C-Reactive Protein 3.1 <=4.9 mg/L [facility] Blood specimen (specimen) 05/03/2018 9:46 AM EDT 05/03/2018 10:12 AM EDT Narrative Resulting Agency Comment Spec In Lab L Karthik Barlow MD CHEMISTRY ORDERABLES [facility] [place] [address] * Comprehensive metabolic panel (non-fasting) (05/03/2018 9:46 AM EDT) Glucose 110 65 - 199 mg/dL [facility] Comment:Diabetes: >=200 mg/d L plus symptoms Blood Urea Nitrogen 13 10 - 20 mg/dL [facility] Creatinine 0.92 0.80 - 1.50 mg/dL [facility] Sodium 143 135 - 145 mmol/L [facility] [place] [facility] [...] questions. Chloride 105 98 - 107 mmol/L [facility] Carbon Dioxide 27 22 - 31 mmol/L [facility] Anion Gap 11 5 - 15 mmol/L [facility] Calcium 9.9 8.5 - 10.5 mg/dL [facility] Protein, Total 7.7 6.1 - 8.0 gm/dL [facility] Albumin 4.1 3.2 - 5.2 gm/dL [facility] Aspartate Aminotransferase 11 0 - 39 unit/L [facility] Alanine Aminotransferase 13 0 - 55 unit/L [facility] Alkaline Phosphatase 61 40 - 120 unit/L [facility] [...] or in patients with acute kidney failure. [email or web address] Blood specimen (specimen) 05/03/2018 9:46 AM EDT 05/03/2018 10:12 AM EDT Narrative Resulting Agency Comment Spec In Lab L Karthik Barlow MD CHEMISTRY ORDERABLES [facility] [place] [address] documented in this encounter Visit Diagnoses Diagnosis Ulcerative pancolitis with complication documented in this encounter Care Teams Equipment Lead Relationship Specialty Start Date End Date Maximilian Fall MD [address] [facility] [place] [address] PCP - General 10/01/11 02/13/21 documented as of this encounter
--- OUTSIDE RECORDS SUMMARY | 2024-07-27 13:39 | XMS_ITS | Encounter Summary ---
Author Organization [facility] [place] [address] Care Team Providers Care Viscosity Worker Name Role Phone Maximilian Fall MD Primary Care Provider [phone] Reason for Visit * Reason Onset Date Comments Prior Authorization 05/10/2018 Encounter Details Date Type Department Care Team (Late st Contact Info) Description 05/10/2018 Telephone [place] [address] Jarret Roa public relations intern Social History Tobacco Use Types Packs/Day Years [...] x 4 weeks Insurance & Phone #: [employer] Part D ID #: [id number] Trialed (dosage, frequency): hydrocortisone enemas (causes nausea), sulfasalazine, canasa (caused pelvic pain), cortifoam (manufacturing shortage), Asacol, Rowasa, prednisone Diagnosis/ICD-10: 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 Notes: Submitted via CoverMyMeds Approved documented in this encounter Plan of Treatment Upcoming Encounters Date Type Department Care Team (Late st Contact Info) Description 08/15/2024 9:00 AM EDT Office Visit [place] [address] Dion Barlow MD [facility] [place] [address] 09/01/2024 9:40 AM EDT Office Visit Cardiology at [address] [phone] Franky Shaver MD [facility] [place] [address] 09/01/2024 11:20 AM EDT Office Visit Dermatology at [place] [address] [place] [address] Gómez Mercer MD [facility] [place] [address] 09/21/2024 2:45 PM EDT Office Visit [facility] [place] [address] Trung Hoyos MD [facility] [address] documented as of this encounter Visit Diagnoses Not on filedocumented in this encounter Care Teams Viscosity Worker Relationship Specialty Start Date End Date Maximilian Fall MD [address] [facility] [address] [place] [address] PCP - General 10/01/11 02/13/21 documented as of this encounter
--- OUTSIDE RECORDS SUMMARY | 2024-07-27 13:40 | XMS_ITS | Encounter Summary ---
Author Organization [facility] Address [facility] [place] [address] Care Team Providers Care Horn Player Name Role Phone Maximilian Fall MD Primary Care Provider [phone] Reason for Visit * Reason Comments Follow-up Encounter Details Date Type Department Care Team (Late st Contact Info) Description 03/13/2015 1:00 PM EDT Follow-Up [place] [address] Dion Barlow MD [facility] [place] [place] [address] Ulcerative colitis, other complication; Lethargy; Other ulcerative [...] Overview Note: ?? Colonoscopy 04/08/10 (Dr. [facility]omes [facility] [...] 6 months or sooner. Davina Barlow MD Child Care Cookart professor Section of Gastroenterology [place] [address] documented in this encounter Plan of Treatment Upcoming Encounters Date Type Department Care Team (Late st Contact Info) Description 08/15/2024 9:00 AM EDT Office Visit [place] [address] Dion Barlow MD [facility] [place] [address] 09/01/2024 9:40 AM EDT Office Visit Cardiology at [address] [address] Franky Shaver MD [facility] [address] 09/01/2024 11:20 AM EDT Office Visit Dermatology at [address] [address] Gómez Mercer MD [facility] [place] [address] 09/21/2024 2:45 PM EDT Office Visit [facility] [place] [address] Trung Hoyos MD [facility] [place] [address] Scheduled Orders Name Type Priority Associated Diagnoses [...] MD HEMATOLOGY ORDERABLE S Performing Organization Address [facility]/State/ZIP Co de Phone Number CERGIOVANNI ORDOÑEZENNIUM [...] Barlow MD CHEMISTRY ORDERABLES Performing Organization Address [facility] Co de Phone Number DURGA [...] Barlow MD CHEMISTRY ORDERABLES Performing Organization Address [facility]/ZIP Co de Phone Number JO-ANNGIOVANNI ORDOÑEZENNIUM * [...] the following links into your internet browser. [email or web address] Blood specimen (specimen) 03/13/2015 2:00 PM EDT 03/13/2015 2:14 PM EDT Narrative Resulting Agency Comment Spec In Lab L Karthik Barlow MD CHEMISTRY ORDERABLES DURGA FREDERICK documented in this encounter Visit Diagnoses Diagnosis Ulcerative colitis, other complication Lethargy Other malaise and fatigue Other ulcerative colitis documented in this encounter Care Teams Horn Player Relationship Specialty Start Date End Date Maximilian Fall MD [address] [place] [address] PCP - General 10/01/11 02/13/21 documented as of this encounter
--- OUTSIDE RECORDS SUMMARY | 2024-07-27 13:40 | XMS_ITS | Encounter Summary ---
[place] [address] Care Team Providers Care Supervisor Blueprinting And Photocopy Name Role Phone Maximilian Fall MD Primary Care Provider [phone] Encounter Details Date Type Department Care Team (Latest Contact Info) Description 11/06/2015 10:15 AM EST Laboratory Appointment Lab 3L [place] [address] Ulcerative colitis, without complications; Diarrhea; Pain in [...] 9:00 AM EDT Office Visit [place] [address] Dion Barlow MD [facility] [place] [address] 09/01/2024 9:40 AM EDT Office Visit Cardiology at [address] [place] [phone] Franky Shaver MD [facility] [place] [address] 09/01/2024 11:20 AM EDT Office Visit Dermatology at [facility] [address] [place] [address] Gómez Mercer MD [facility] [address] 09/21/2024 2:45 PM EDT Office Visit [facility] [place] [phone] Trung Hoyos MD [facility] [place] [address] documented as of this encounter Procedures Procedure Name Priority Date/Time Associated Diagnosis Comments C. DIFFICILE SCREEN Routine 11/06/2015 2 :30 PM EST Pain in right hip Bilateral low back pain, with sciatica presence unspecified Abdominal pain, unspecified abdominal location Chronic ulcerative enterocolitis, unspecified complication STOOL CULTURE SCREEN ([facility]/CGP/APD/NLH) Routine 11/06/2015 1:49 PM EST Pain in [...] ulcerative enterocolitis, unspecified complication CRYPTOSPORIDIUM OOCYST ANTIGEN ([facility]/CGP/APD) Routine 11/06/2015 1:09 PM EST Pain in right hip Bilateral low back pain, with sciatica presence unspecified Abdominal pain, unspecified abdominal location Chronic ulcerative enterocolitis, unspecified complication GIARDIA/CRYPTOSPORIDIUM ANTIGENS ([facility]/CGP/APD/NLH) Routine 11/06/2015 1:09 PM EST Pain in right hip Bilateral low back pain, with sciatica presence unspecified Abdominal pain, unspecified abdominal location Chronic ulcerative enterocolitis, unspecified complication GIARDIA ANTIGEN ([facility]/CGP/APD/NLH) Routine 11/06/2015 1:09 PM EST Pain in [...] PM EST) C Diff Interp Negative Negative [facility] Stool specimen (specimen) 11/06/2015 2:30 PM EST 11/06/2015 2:30 PM EST Narrative Resulting Agency Comment Spec In Lab L Karthik Barlow MD MICROBIOLOGY - GENER AL ORDERABLES Performing Organization Address [facility] Phone Number [facility] * Shiga Toxin Detection (11/06/2015 1:49 PM EST) Pathologist [facility] Shiga Toxin Assay EIA Negative for Shiga Toxin 1 EIA Negative for Shiga Toxin 2 [facility] Stool specimen (specimen) 11/06/2015 1:49 PM EST 11/06/2015 2:33 PM EST Narrative Resulting Agency Comment Spec In Lab L Karthik Barlow MD MICROBIOLOGY - GENER AL ORDERABLES Performing Organization Address [facility] Phone Number [facility] * Campylobacter Antigen (11/06/2015 1:49 PM EST) Pathologist [facility] Campylobacter Ag Immunoassay Negative for Campylobacter Antigen [facility] Stool specimen (specimen) 11/06/2015 1:49 PM EST 11/06/2015 2:33 PM EST Narrative Resulting Agency Comment Spec In Lab L Karthik Barlow MD MICROBIOLOGY - GENER AL ORDERABLES Performing Organization Address [facility] de Phone Number [facility] * Stool culture (11/06/2015 1:49 PM EST) Stool Culture No enteric pathogens isolated [facility] Stool specimen (specimen) 11/06/2015 1:49 PM EST 11/06/2015 2:33 PM EST Narrative Resulting Agency Comment Spec In Lab L Karthik Barlow MD MICROBIOLOGY - GENER AL ORDERABLES Performing Organization Address [facility] Phone Number [facility] * Cryptosporidium Oocyst Antigen (11/06/2015 1:09 PM EST) Cryptosporidium Antigen Negative Negative [facility] Stool specimen (specimen) 11/06/2015 1:09 PM EST 11/06/2015 2:28 PM EST Narrative Resulting Agency Comment Spec In Lab L Karthik Barlow MD MICROBIOLOGY - GENER AL ORDERABLES Performing Organization Address [facility] Phone Number [facility] * Giardia antigen (11/06/2015 1:09 PM EST) Giardia Antigen Negative Negative [facility] Comment:Examination for othe r intestinal parasites requires foreign travel history. Stool specimen (specimen) 11/06/2015 1:09 PM EST 11/06/2015 2:28 PM EST Narrative Resulting Agency Comment Spec In Lab L Karthik Barlow MD MICROBIOLOGY - GENER AL ORDERABLES Performing Organization Address [facility] Phone Number [facility] * (ABNORMAL) Urine culture (11/06/2015 1:00 PM EST) Urine Culture 50,000-99,000 cfu/ml Escherichia coli(A) [facility] Organism Escherichia coli(A) [facility] Urine specimen obtained by clean catch [...] Barlow MD MICROBIOLOGY - GENER AL ORDERABLES [facility] Express EngineeringIUM * (ABNORMAL) Urinalysis with reflex Culture (11/06/2015 [...] Urine Dipstick Hazy(A) Clear CERNER MILLENNIUM Specific [place] Urine Automated 1.020 1.002 - 1.030 CERNER [...] the following links into your internet browser. [email or web address] Blood specimen (specimen) 11/06/2015 10:24 AM EST 11/06/2015 10:28 AM EST Narrative Resulting Agency Comment Spec In Lab Dion Barlow MD CHEMISTRY ORDERABLES Performing Organization Address [facility] de Phone Number DURGA ORDOÑEZMailWriterADVENTHEALTH HENDERSONVILLE * High Sensitivity CRP (11/06/2015 10:24 AM EST) C-Reactive Protein High Sensitivity 7.9 mg/L [facility] SynedgenGOLETA [facility]LEY [facility] Comment: Interpretations: 1) For accurate cardiac [...] ORDERABLES Performing Organization Address [facility] de Phone Number DURGA FREDERICK documented in this encounter Visit Diagnoses Diagnosis Ulcerative colitis, without complications Diarrhea Pain in right hip Pain in joint, pelvic region and thigh Bilateral low back pain, with sciatica presence unspecified Abdominal pain, unspecified abdominal location Chronic ulcerative enterocolitis, unspecified complication documented in this encounter Care Teams Supervisor Blueprinting And Photocopy Relationship Specialty Start Date End Date Maximilian Fall MD [address] [place] [address] PCP - General 10/01/11 02/13/21 documented as of this encounter
--- OUTSIDE RECORDS SUMMARY | 2024-07-27 13:40 | XMS_ITS | Encounter Summary ---
Author Organization [facility] Address [facility] [place] [address] Care Team Providers Care Inside Sales Engineer Name Role Phone Maximilian Fall MD Primary Care Provider [phone] Reason for Visit * Reason Comments Follow-up Encounter Details Date Type Department Care Team (Late st Contact Info) Description 12/04/2015 3:30 PM EST Office [place] [address] Marcelle Weinberg, [address] [facility] [place] [address] Other ulcerative colitis Social History Tobacco Use [...] nl ?? [place] mildly active colitis in the sigmoid colon [...] to move his bowels. Still formed stool. [place] better after defecation. Eating well. Weight stable. [...] Dion Osullivan MD at [facility] History Social History ??? Marital [...] UA Latest Range: Clear Hazy (A) Spec Perry UA Latest Range: 1.002-1.030 1.020 pH UA [...] 9:00 AM EDT Office [place] [phone] Dion Osullivan MD [facility] [place] [address] 09/01/2024 9:40 AM EDT Office Visit Cardiology at [address] [address] Franky Shaver MD [facility] [place] [address] 09/01/2024 11:20 AM EDT Office Visit Dermatology at [address] [address] Gómez Mercer MD [facility] [place] [address] 09/21/2024 2:45 PM EDT Office Visit [place] [address] Trung Hoyos MD [facility] [place] [address] documented as of this encounter Visit Diagnoses Diagnosis Other ulcerative colitis documented in this encounter Care Teams Inside Sales Engineer Relationship Specialty Start Date End Date Maximilian Fall MD [address] [place] [address] PCP - General 10/01/11 02/13/21 documented as of this encounter
--- OUTSIDE RECORDS SUMMARY | 2024-07-27 13:40 | XMS_ITS | Encounter Summary ---
Author Organization [facility] [place] [address] Care Team Providers Care Ordnance Officer Name Role Phone Maximilian Fall MD Primary Care Provider [phone] Encounter Details Date Type Department Care Team (Late st Contact Info) Description 07/07/2016 Telephone [place] [phone] Bethany Trivedi RN Social History Tobacco Use [...] EDT Office [place] [address] Dion Barlow MD [facility] [place] [address] 09/01/2024 9:40 AM EDT Office Visit Cardiology at [address] [phone] Franky Shaver MD [facility] [place] [address] 09/01/2024 11:20 AM EDT Office Visit Dermatology at [facility] [address] [place] [address] Gómez Mercer MD [facility] DR EDDIE [place] [address] 09/21/2024 2:45 PM EDT Office Visit [facility] [place] [phone] Trung Hoyos MD [facility] [place] [address] documented as of this encounter Results * C. Difficile Screen (07/18/2016 2:32 PM EDT) C Diff Interp Negative Negative [facility] Comment: C. diff ??Negative Clostridium difficile is not present in the specimen. If patient is having diarrhea suspected to be from an infectious cause, then Contact Precautions are still required. Stool specimen (specimen) 07/18/2016 2:32 PM EDT 07/18/2016 2:32 PM EDT Narrative Resulting Agency Comment Spec In Lab L Karthik Barlow MD MICROBIOLOGY - GENER AL ORDERABLES Performing Organization Address [facility]/ZIP Co de Phone Number [facility] [place] [address] * (ABNORMAL) Sedimentation rate (07/14/2016 12:21 PM EDT) Sedimentation Rate Automated 17(H) 0 - 15 mm/hr [facility] Blood specimen (specimen) 07/14/2016 12:21 PM EDT 07/14/2016 12:29 PM EDT Narrative Resulting Agency Comment Spec In Lab L Karthik Barlow MD HEMATOLOGY ORDERABLE S Performing Organization Address [facility] Co de Phone Number [facility] [place] [address] * Comprehensive metabolic panel (non-fasting) (07/14/2016 12:21 [...] the following links into your internet browser. 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
--- OUTSIDE RECORDS SUMMARY | 2024-07-27 13:40 | XMS_ITS | Encounter Summary ---
Author Organization [facility] Address [facility] [place] [address] Care Team Providers Care Brand Marketing Coordinator Name Role Phone Maximilian Fall MD Primary Care Provider [phone] Reason for Visit * Reason Comments Follow-up Encounter Details Date Type Department Care Team (Latest Contact Info) Description 11/10/2016 8:30 AM EST Office [place] [address] Dion Barlow MD [facility] [place] [address] Ulcerative rectosigmoiditis with rectal bleeding Social History [...] Overview Note: ?? Colonoscopy 04/08/10 (Dr. Gomes [facility]) - inflammation only within the [...] months. 20 min of this 25 min [id number] visit was spent counseling the patient in the issues outlined above. Davina Barlow MD Patient Schedulerautomation application engineer Section of Gastroenterology [place] [address] documented in this encounter Plan of Treatment Upcoming Encounters Date Type Department Care Team (Late st Contact Info) Description 08/15/2024 9:00 AM EDT Office [place] [address] Dion Barlow MD [facility] [place] [address] 09/01/2024 9:40 AM EDT Office Visit Cardiology at [address] [phone] Franky Shaver MD [facility] [place] [address] 09/01/2024 11:20 AM EDT Office Visit Dermatology at [facility] [address] [place] [address] Gómez Mercer MD [facility] DR EDDIE [place] [address] 09/21/2024 2:45 PM EDT Office Visit Pain and Spine Center at [facility] [place] [phone] Trung Hoyos MD [facility] [place] [address] Scheduled Orders Name Type Priority Associated Diagnoses Orde r Schedule COLONOSCOPY Procedures Routine Ulcerative rectosigmoiditis with rectal bleeding Ordered: 11/10/2016 documented as of this encounter Visit Diagnoses Diagnosis Ulcerative rectosigmoiditis with rectal bleeding documented in this encounter Care Teams Brand Marketing Coordinator Relationship Specialty Start Date End Date Maximilian Fall MD [address] [place] [address] PCP - General 10/01/11 02/13/21 documented as of this encounter
--- OUTSIDE RECORDS SUMMARY | 2024-07-27 13:40 | XMS_ITS | Encounter Summary ---
Author Organization [facility] Address [facility] [place] [id number] Care Team Providers Care Wind Farm Support Specialist Name Role Phone Maximilian Fall MD Primary Care Provider [phone] Reason for Referral * Diagnostic Test (Routine) - Closed Specialty Diagnoses / Procedures Referred By Contac t Referred To Contact Radiology Diagnoses Postoperative wound abscess, initial encounter Procedures CT Retroperitoneal Abscess Drain Minnie Johnson MD [facility] [place] [address] [facility] [place] [address] Referral ID Status Reason Start Date Expiration Date V isits Requested Visits Authorized [id number] Closed Specialty Service Requested 03/22/2016 03/22/2017 1 1 Encounter Details Date Type Department Care Team (Late st Contact Info) Description 03/22/2016 [place] [address] iMnnie Johnson MD [facility] [place] [address] Postoperative wound abscess, initial encounter [...] : 1950 Referring Physician: Dr. Guerin from [facility] Indication: RLQ post-operative abscess Planned Procedure: CT guided abscess drain placement Chief Complaint/HPI: 65 y.o. male with PMHx significant for asthma, diabetes, and ulcerative colitis who is status post laparoscopic appendectomy on 03/13/2016 who noted RLQ pain several days post-op.He presented to [facility] ED and underwent a CT scan with findings consistent with RLQ abscess. We have been consulted for CT guided abscess drain placement. The patient has been admitted to [facility] and will be transferred back to [facility] following the procedure. OSH Labs: WBC 10.2, [...] Hurtado. Minnie Johnson MD Radiology, PGY-2 Pager [phone] documented in this encounter Plan of Treatment Upcoming Encounters Date Type Department Care Team (Late st Contact Info) Description 08/15/2024 9:00 AM EDT Office Visit [place] [address] Dion Barlow MD [facility] [place] [address] 09/01/2024 9:40 AM EDT Office Visit Cardiology at [address] [place] [address] Franky Shaver MD [facility] [place] [address] 09/01/2024 11:20 AM EDT Office Visit Dermatology at [facility] [address] [place] [phone] Gómez Mercer MD [facility] DR [place] [address] 09/21/2024 2:45 PM EDT Office Visit Pain and Spine Center at [facility] [place] [phone] Trung Hoyos MD [facility] [place] [address] documented as of this encounter Results * CT Retroperitoneal Abscess Drain (03/22/2016 12:34 PM EDT) Anatomical Region Laterality Modality Abdomen Computed Tomogra phy Narrative 03/22/2016 1:02 PM EDT VIR PROCEDURE NOTE Procedure: CT-guided RLQ?? drainage catheter placement (ACC # [id number]) Indication : 65 y.o. male with PMHx [...] Hospital and will be transferred back to [facility] following the procedure. Technique: After discussing risks [...] encounter documented in this encounter Care Teams Wind Farm Support Specialist Relationship Specialty Start Date End Date Maximilian Fall MD [address] [place] [address] PCP - General 10/01/11 02/13/21 documented as of this encounter
--- OUTSIDE RECORDS SUMMARY | 2024-07-27 13:40 | XMS_ITS | Encounter Summary ---
Author Organization [facility] Address [facility] [place] [address] Care Team Providers Care Embossing Calender Operator Name Role Phone Maximilian Fall MD Primary Care Provider [phone] Encounter Details Date Type Department Care Team (Late st Contact Info) Description 11/05/2015 Telephone [place] [phone] Bethany Trivedi, RN Social History Tobacco Use [...] 9:00 AM EDT Office [place] [phone] Dion Barlow MD [facility] [place] [address] 09/01/2024 9:40 AM EDT Office Visit Cardiology at [address] [phone] Franky Shaver MD [facility] [place] [address] 09/01/2024 11:20 AM EDT Office Visit Dermatology at [facility] [address] [place] [phone] Gómez Mercer MD [facility] [place] [address] 09/21/2024 2:45 PM EDT Office Visit [place] [phone] Trung Hoyos MD [facility] [place] [address] documented as of this encounter Results * (ABNORMAL) Sedimentation rate (11/06/2015 10:24 AM EST) Sedimentation Rate Automated 22(H) 0 - 15 mm/hr [facility] [employer] Blood specimen (specimen) 11/06/2015 10:24 AM EST 11/06/2015 10:28 AM EST Narrative Resulting Agency Comment Spec In Lab Dion Barlow MD HEMATOLOGY ORDERABLE S [facility] MILLENNIUM * (ABNORMAL) Comprehensive metabolic panel (non-fasting) (11/06/2015 10:24 AM EST) [facility] Glucose 81 65 - 199 mg/dL [facility]ER MILLENNIUM Comment:Diabetes: >=200 mg/d L plus symptoms Blood Urea Nitrogen 14 10 - 20 mg/dL [facility] MILLENNIUM Creatinine 1.15 0.80 - 1.50 mg/dL [facility] MILLENNIUM Comment: Please note that the pediatric reference intervals supplied above were not validated at [facility]. Results from pediatric patients should be interpreted [...] the following links into your internet browser. [email or web address] Blood specimen (specimen) 11/06/2015 10:24 AM EST 11/06/2015 10:28 AM EST Narrative Resulting Agency Comment Spec In Lab L Karthik Barlow MD CHEMISTRY ORDERABLES Performing Organization Address [facility] de Phone Number DURGA FREDERICK * High Sensitivity CRP (11/06/2015 10:24 AM EST) C-Reactive Protein High Sensitivity 7.9 mg/L [facility] Comment: Interpretations: 1) For accurate [...] the test package insert) References: 1. Christiane HZU et. al. ??AHA/CDC Scientific Statement: Markers of Inflammation and Cardiovascular Disease. ??Circulation 2003; 107:499-511 2. Bandar PM. ??Clinical applications of C-reactive protein for cardiovascular disease detection and prevention. ??Circulation 2003; 107:363-369 Blood specimen (specimen) 11/06/2015 10:24 AM EST 11/06/2015 10:28 AM EST Narrative Resulting Agency Comment Spec In Lab L Karthik Barlow MD CHEMISTRY ORDERABLES Performing Organization Address [facility] Phone Number DURGA FREDERICK documented in this encounter Visit Diagnoses Diagnosis Ulcerative colitis, without complications Diarrhea documented in this encounter Care Teams Embossing Calender Operator Relationship Specialty Start Date End Date Maximilian Fall MD [address] [place] [address] [address] [place] [address] PCP - General 10/01/11 02/13/21 documented as of this encounter
--- OUTSIDE RECORDS SUMMARY | 2024-07-27 13:40 | XMS_ITS | Encounter Summary ---
Author Organization [facility] Address [facility] [place] [address] Care Team Providers Care Formula Weigher Name Role Phone Maximilian Fall MD Primary Care Provider Encounter Details Date Type Department Care Team (Late st Contact Info) Description 02/12/2017 11:15 AM EDT - 02/12/2017 12:00 PM EDT Surgery [place] [address] Dion Barlow MD [facility] [place] [address] COLONOSCOPY FLEXIBLE, WITH BX (WRVU 3.56) Social [...] - 02/12/2017 12:37 PM EDT Please call [phone] before 8pm with problems, questions or concerns, after 5pm call the Hospital at [phone] and ask to speak to the Manpower Development Specialist Manager economic historian and the cattery operator will contact that person for you. [...] sent through Care Everywhere. * COLONOSCOPY: POST-OP (JAPANESE) documented in this encounter Medications at Time [...] EDT Office [place] [address] Dion Barlow MD [facility] [place] [address] 09/01/2024 9:40 AM EDT Office Visit Cardiology at [address] [place] [phone] Franky Shaver MD [facility] [place] [address] 09/01/2024 11:20 AM EDT Office Visit Dermatology at [facility] [address] [place] [phone] Gómez Mercer MD [facility] DR [place] [address] 09/21/2024 2:45 PM EDT Office Visit [place] [address] Trung Hoyos MD [facility] [place] [address] documented as of this encounter Procedures Procedure [...] PM EDT 02/12/2017 12:16 PM EDT Narrative [facility] - 02/12/2017 12:16 PM EDT Specimen requisition ordered. ??Separate Pathology report to follow L Karthik Barlow MD PATHOLOGY/CYTOLOGY O CEE Performing Organization Address City/[facility]/[place] [address] * Specimen to Pathology (surgical or derm) (02/12/2017 12:16 PM EDT) AP Specimen 02/12/2017 12:1 6 PM EDT 02/12/2017 12:16 PM EDT Narrative [facility] - 02/12/2017 12:16 PM EDT Specimen requisition ordered. ??Separate Pathology report to follow L Karthik Barlow MD PATHOLOGY/CYTOLOGY O CEE Performing Organization Address City/[facility]/[place] [address] * Specimen to Pathology (surgical or derm) (02/12/2017 12:16 PM EDT) AP Specimen 02/12/2017 12:1 6 PM EDT 02/12/2017 12:16 PM EDT [facility] - 02/12/2017 12:16 PM EDT Specimen requisition ordered. ??Separate Pathology report to follow L Karthik Barolw MD PATHOLOGY/[place] [address] * Specimen to Pathology (surgical or derm) (02/12/2017 12:16 PM EDT) AP Specimen 02/12/2017 12:1 6 PM EDT 02/12/2017 12:16 PM EDT Narrative [facility] - 02/12/2017 12:16 PM EDT Specimen requisition ordered. ??Separate Pathology report to follow L Karthik Barlow MD PATHOLOGY/CYTOLOGY Ozzie MIKE [facility] [place] [address] * Surgical Pathology Report (02/12/2017 12:15 PM EDT) Final Diagnosis [id number] ?Location: 4T; EA07; A The signing pathologist [...] ing: (T2) ??ejr 02/13/2017 4:23 PM EDT [facility] GI Biopsy 02/12/2017 12:1 5 PM EDT 02/12/2017 12:15 PM EDT GI Biopsy 02/12/2017 12:1 5 PM EDT 02/12/2017 12:15 PM EDT GI Biopsy 02/12/2017 12:1 5 PM EDT 02/12/2017 12:15 PM EDT GI Biopsy 02/12/2017 12:1 5 PM EDT 02/12/2017 12:15 PM EDT L Karthik Barlow MD PATHOLOGY/CYTOLOGY O CEE [facility] [place] [address] * COLONOSCOPY (02/12/2017 11:40 AM EDT) COLONOSCOPY [facility] Endoscopy ___ Procedure Date: 02/12/2017 11:40 AM ? Patient Name: Brian Rodriguez ? Date of : 1950 ? Age: 66 ? Order #: [id number] ? Instrument Name: [id number] ? ___ Procedure: ? Colonoscopy Indications: ? High risk colon cancer surveillance: ? Ulcerative colitis Patient Profile: ? This is a 66 year old male. This ? patient has left-sided ulcerative ? colitis on sulfasalazine and ? Cortifoam and is experiencing mild ? symptoms. Providers: ? L. Karthik Barlow MD, Vandana Love ? RONY Mckeon, Sonal [facility], ? Journal Box Inspector Referring MD: ?Maximilian Fall MD Medicines: ? [...] preparation was evaluated using ? the BBPS ([place] Bowel Preparation ? Scale) with scores of: [...] by the sedation RN. ? _ L. aKrthik Barlow MD 02/12/2017 12:30:33 PM Number of Addenda: 0 Note Initiated On: 02/12/2017 11:40 AM PROVATION 02/12/2017 11:4 0 AM EDT Maximilian Fall MD GENERAL SURGICAL ORD ERABLES Performing Organization Address City/[facility]/ZIP Co de Phone Number PROVATION * POCT Fingerstick Glucose (02/12/2017 10:30 AM EDT) Glucose, POC 132 60 - 199 mg/dl 02/12/2017 10:3 0 AM EDT Dion Barlow MD POINT OF CARE TEST O RDERAOMAR * POCT Glucose (02/12/2017 10:29 AM EDT) Glucose, POC 132 65 - 199 mg/dL [facility] Comment: Supplemental ranges: <140 mg/dL before meals <180 mg/dL all other times of the day Blood specimen (specimen) 02/12/2017 10:29 AM EDT 02/12/2017 10:29 AM EDT Dion Barlow MD POINT OF CARE TEST O RDMELISSA Performing Organization Address [facility] Co de Phone Number [facility] [place] [address] documented in this encounter Visit Diagnoses Diagnosis [...] RN) documented in this encounter Care Teams Formula Weigher Relationship Specialty Start Date End Date Maximilian Fall MD [address] [place] [address] PCP - General 10/01/11 02/13/21 documented as of this encounter
--- OUTSIDE RECORDS SUMMARY | 2024-07-27 13:40 | XMS_ITS | Encounter Summary ---
Author Organization [facility] [place] [address] Care Team Providers Care Ethnology Professor Name Role Phone Maximilian Fall MD Primary Care Provider [phone] Encounter Details Date Type Department Care Team (Late st Contact Info) Description 11/08/2015 Orders Only [place] [address] Marcelle Weinberg, EXTRACTOR OPERATOR SOLVENT PROCESS [facility] [place] [address] Urinary tract infection without hematuria, site unspecified [...] this encounter Progress Notes * Marcelle Weinberg, EXTRACTOR OPERATOR SOLVENT PROCESS - 11/08/2015 5:53 PM EST I spoke [...] UA Latest Range: Clear Hazy (A) Spec [place] UA Latest Range: 1.002-1.030 1.020 pH UA [...] AM EDT Office Visit [place] [address] Dion Barlow MD [facility] [address] 09/01/2024 9:40 AM EDT Office Visit Cardiology at [address] [place] [address] Franky Shaver MD [facility] [place] [address] 09/01/2024 11:20 AM EDT Office Visit Dermatology at [address] [place] [address] Gómez Mercer MD [facility] [place] [address] 09/21/2024 2:45 PM EDT Office Visit [facility] [place] [address] Trung Hoyos MD [facility] [place] [address] documented as of this encounter Visit Diagnoses Diagnosis Urinary tract infection without hematuria, site unspecified documented in this encounter Care Teams Ethnology Professor Relationship Specialty Start Date End Date Maximilian Fall MD [address] [place] [address] PCP - General 10/01/11 02/13/21 documented as of this encounter
--- OUTSIDE RECORDS SUMMARY | 2024-07-27 13:40 | XMS_ITS | Encounter Summary ---
Author Organization [facility] Address [facility] [place] [address] Care Team Providers Care Slip Bridge Operator Name Role Phone Maximilian Fall MD Primary Care Provider [phone] Encounter Details Date Type Department Care Team (Late st Contact Info) Description 09/11/2014 10:00 AM EDT [place] [address] Doin Barlow MD [facility] [place] [address] Ulcerative colitis, other complication (Primary Dx) Discharge [...] ?? Colonoscopy 04/08/10 (Dr. Gomes [facility]) - inflammation only within the rectum [...] 6 months or sooner. Davina Barlow MD Cylinder Grindertransition lead Section of Gastroenter[place] [address] documented in this encounter Plan of Treatment Upcoming Encounters Date Type Department Care Team (Late st Contact Info) Description 08/15/2024 9:00 AM EDT Office [place] [address] Dion Barlow MD [facility] [place] [address] 09/01/2024 9:40 AM EDT Office Visit Cardiology at [address] [phone] Franky Shaver MD [facility] [place] [address] 09/01/2024 11:20 AM EDT Office Visit Dermatology at [facility] [address] [place] [address] Gómez Mercer MD [facility] DR [place] [address] 09/21/2024 2:45 PM EDT Office Visit [place] [address] Trung Hoyos MD [facility] [place] [address] documented as of this encounter Visit Diagnoses Diagnosis Ulcerative colitis, other complication- Primary documented in this encounter Care Teams Slip Bridge Operator Relationship Specialty Start Date End Date Maximilian Fall MD [address] [place] [address] PCP - General 10/01/11 02/13/21 documented as of this encounter
--- OUTSIDE RECORDS SUMMARY | 2024-07-27 13:40 | XMS_ITS | Encounter Summary ---
[place] [address] Care Team Providers Care Roll On Worker Name Role Phone Maximilian Fall MD Primary Care Provider [phone] Encounter Details Date Type Department Care Team (Late st Contact Info) Description 03/13/2016 - 03/13/2016 11:59 PM EDT Hospital Encounter [place] [address] [address] Thomas Temporary Pain Discharge Disposition: Home [...] EDT Office Visit [place] [phone] Dion Barlow MD [facility] [place] [address] 09/01/2024 9:40 AM EDT Office Visit Cardiology at [address] [phone] Franky Shavre MD [facility] [place] [address] 09/01/2024 11:20 AM EDT Office Visit Dermatology at [address] [address] Gómez Mercer MD [facility] DR [place] [address] 09/21/2024 2:45 PM EDT Office Visit Pain [place] [phone] Trung Hoyos MD [facility] [place] [address] documented as of this encounter Procedures Procedure Name Priority Date/Time Associated Diagnosis Comments FILM LIBRARY STORAGE ONLY CT ABDOMEN AND PELVIS Routine 03/13/2016 12:00 AM EDT Pain documented in this encounter Results * Film Library- Storage Only CT Abdomen & Pelvis (03/13/2016 12:00 AM EDT) Narrative [facility] - 03/22/2016 8:20 AM EDT This exam is for storage only and is auto-finalizing. Dr Leiva [facility] FILM LIBRARY ORD ERABLES [place], [place] documented in this encounter Visit Diagnoses Diagnosis Pain Generalized pain documented in this encounter Care Teams Roll On Worker Relationship Specialty Start Date End Date Maximilian Fall MD [address] [place] [address] PCP - General 10/01/11 02/13/21 documented as of this encounter
--- OUTSIDE RECORDS SUMMARY | 2024-07-27 13:40 | XMS_ITS | Encounter Summary ---
Author Organization [facility] Address [facility] [place] [address] Care Team Providers Care Botany Technician Name Role Phone Maximilian Fall MD Primary Care Provider [phone] Encounter Details Date Type Department Care Team (Latest Contact Info) Description 11/06/2015 11:18 AM EST - 11/06/2015 11:59 PM [facility] Hospital Encounter XRay at [address] [place] [address] Dion Barlow MD [facility] [place] [address] Pain in right hip; Bilateral low back [...] AM EDT Office Visit [place] [address] Dion Barlow MD [facility] [place] [address] 09/01/2024 9:40 AM EDT Office Visit Cardiology at [address] [phone] Franky Shaver MD [facility] [address] 09/01/2024 11:20 AM EDT Office Visit Dermatology at [facility] [address] [place] [address] Gómez Mercer MD [facility] DR EDDIE [place] [address] 09/21/2024 2:45 PM EDT Office Visit Pain and Spine Center at [facility] [place] [address] Trung Hoyos MD [facility] [place] [address] documented as of this encounter Procedures Procedure [...] complication documented in this encounter Care Teams Botany Technician Relationship Specialty Start Date End Date Maximilian Fall MD [address] [place] [address] PCP - General 10/01/11 02/13/21 documented as of this encounter
--- OUTSIDE RECORDS SUMMARY | 2024-07-27 13:40 | XMS_ITS | Encounter Summary ---
Author Organization [facility] [place] [address] Care Team Providers Care Superintendent Transmission Name Role Phone Maximilian Fall MD Primary Care Provider [phone] Encounter Details Date Type Department Care Team (Late st Contact Info) Description 07/07/2016 Telephone [place] [phone] Bethany Trivedi RN Social History Tobacco Use [...] EDT Cortifoam approved 07/07/16 until furhter notice Rolf id# [id number] * Telephone Encounter - Bethany Trivedi RN - 07/07/2016 12:10 PM EDT Formulary exception form sent in for Cortifoam enemas documented in this encounter Plan of Treatment Upcoming Encounters Date Type Department Care Team (Late st Contact Info) Description 08/15/2024 9:00 AM EDT Office [place] [phone] Dion Barlow MD [facility] [place] [address] 09/01/2024 9:40 AM EDT Office Visit Cardiology at [address] [place] [address] Franky Shaver MD [facility] [place] [address] 09/01/2024 11:20 AM EDT Office Visit Dermatology at [place] [address] [place] [phone] Gómez Mercer MD [facility] [place] [address] 09/21/2024 2:45 PM EDT Office Visit [place] [phone] Trung Hoyos MD [facility] [place] [address] documented as of this encounter Visit Diagnoses Not on filedocumented in this encounter Care Teams Superintendent Transmission Relationship Specialty Start Date End Date Maximilian Fall MD [address] [place] [address] PCP - General 10/01/11 02/13/21 documented as of this encounter
--- OUTSIDE RECORDS SUMMARY | 2024-07-27 13:40 | XMS_ITS | Encounter Summary ---
Author Organization [facility] Address [facility] [place] [address] Care Team Providers Care Major Gifts Manager Name Role Phone Maximilian Fall MD Primary Care Provider [phone] Encounter Details Date Type Department Care Team (Latest Contact Info) Description 11/06/2015 11:16 AM EST - 11/06/2015 11:17 AM [facility] Hospital Encounter XRay at [address] [place] [address] Dion Barlow MD [facility] [place] [address] Pain in right hip; Bilateral low back [...] 9:00 AM EDT Office [place] [address] Dion Barlow MD [facility] [place] [address] 09/01/2024 9:40 AM EDT Office Visit Cardiology at [address] [phone] Franky Shaver MD [facility] [place] [address] 09/01/2024 11:20 AM EDT Office Visit Dermatology at [facility] [address] [place] [phone] Gómez Mercer MD [facility] DR [place] [address] 09/21/2024 2:45 PM EDT Office Visit Pain and Spine Center at [facility] [place] [address] Trung Hoyos MD [facility] [place] [address] documented as of this encounter Procedures Procedure [...] complication documented in this encounter Care Teams Major Gifts Manager Relationship Specialty Start Date End Date Maximilian Fall MD [address] [place] [address] PCP - General 10/01/11 02/13/21 documented as of this encounter
--- OUTSIDE RECORDS SUMMARY | 2024-07-27 13:40 | XMS_ITS | Encounter Summary ---
Author Organization [facility] Address [place] [id number] Care Team Providers Care Employee Placement Specialist Name Role Phone Maximilian Fall MD Primary Care Provider [phone] Reason for Referral * Diagnostic Test (Routine) - Closed Specialty Diagnoses / Procedures Referred By Contac t Referred To Contact Radiology Diagnoses Postoperative wound abscess, initial encounter Procedures CT Retroperitoneal Abscess Drain Minnie Johnson MD [facility] [place] [address] [facility] [place] [address] Referral ID Status Reason Start Date Expiration Date V isits Requested Visits Authorized [id number] Closed Specialty Service Requested 03/22/2016 03/22/2017 1 1 Reason for Visit * Diagnostic Test (Routine) - Closed Specialty Diagnoses / Procedures Referred By Contac t Referred To Contact Radiology Diagnoses Postoperative wound abscess, initial encounter Procedures CT Retroperitoneal Abscess Drain Minnie Johnson MD [facility] [place] [address] [facility] [place] [address] Referral ID Status Reason Start Date Expiration Date V isits Requested Visits Authorized [id number] Closed Specialty Service Requested 03/22/2016 03/22/2017 1 1 Encounter Details Date Type Department Care Team (Latest Contact Info) Description 03/22/2016 10:40 AM EDT - 03/22/2016 11:59 PM EDT Hospital [place] [address] Shireen Hurtado MD [facility] [place] [address] Postoperative wound abscess, initial encounter Discharge Disposition: [...] is during regular office hours, please call [phone]. If it is after regular office hours, or on weekends or holidays, please call [phone] and ask to speak to the Campaign Consultant harpooner for Interventional Radiology. You have received medication [...] pain several days post-op. He presented to [facility] ED and underwent a CT scan with findings consistent with RLQ abscess. We have been consulted for CT guided abscess drain placement. The patient has been admitted to [facility] and will be transferred back to [facility] following the procedure. Addendum: The patient's [...] visible) Minnie Johnson MD Radiology, PGY-2 Pager [phone] * Danyell Doyle RN - 03/22/2016 10:29 AM EDT [facility] DATABASE Name: NAYA RODRIGUEZ Date of : 1950 AGE 65 y.o. Address: [address] [place] [phone] (home) Mobile: Telephone Information: Referring Provider: Minnie [...] at [facility] ENDOSCOPY ??? Pro sigmoidoscopy, diagnostic 03/16/2012 FLEXIBLE SIGMOIDOSCOPY performed by YUDI MALLOY at [facility] ENDOSCOPY ??? Upper gi endoscopy, exam 10/01/2012 UPPER GI ENDOSCOPY performed by Dion OSULLIVAN at [facility] ENDOSCOPY ??? Pro colonoscopy, diagnostic 07/13/2014 COLONOSCOPY, DIAGNOSTIC performed by Dion Osullivan MD at [facility] ENDOSCOPY Date/Procedure Med's given/comments No previous [...] CT-guided RLQ drainage catheter placement (acc # [id number]) Indication : 65 y.o. male with PMHx significant for asthma, diabetes, and ulcerative colitis who isstatus post laparoscopic appendectomy on 03/13/2016 who noted RLQ pain several days post-op. He presented to [facility] ED and underwent a CT scan with findings consistent with RLQ abscess. We have been consulted for CT guided abscess drain placement. The patient has beenadmitted to [facility] and will be transferred back to [facility] following the procedure. . Technique: After [...] 9:00 AM EDT Office [place] [address] Dion Osullivan MD [facility] [place] [address] 09/01/2024 9:40 AM EDT Office Visit Cardiology at [address] [place] [address] Franky Shaver MD [facility] [place] [address] 09/01/2024 11:20 AM EDT Office Visit Dermatology at [facility] [address] [place] [phone] Gómez Mercer MD [facility] DR EDD[place] [address] 09/21/2024 2:45 PM EDT Office Visit Pain and Spine Center at [facility] [place] [address] Trung Hoyos MD [facility] [place] [address] documented as of this encounter Procedures Procedure [...] CT-guided RLQ?? drainage catheter placement (ACC # [id number]) Indication : 65 y.o. male with PMHx significant for asthma, diabetes, and ulcerative colitis who is status post laparoscopic appendectomy on 03/13/2016 who noted RLQ pain several days post-op. He presented to [facility] ED and underwent a CT scan with findings consistent with RLQ abscess. We have been consulted for CT guided abscess drain placement. The patient has been admitted to [facility] and will be transferred back to [facility] following the procedure. Technique: After discussing [...] EDT) Anaerobic Culture No anaerobic organisms isolated [facility] Specimen from abscess (specimen) [place] / Unknown 03/22/2016 10:54 AM EDT 03/22/2016 12:52 PM EDT Comment:RLQ PAIN SEVERAL DAY S POST-OP. HE PRESENTED TO [facility] ED AND UNDERWENT A CT SCAN WITH FINDINGS CONSISTENT WITH RLQ ABSCESS. S/P APPY. Narrative Resulting Agency Comment Spec In Lab Shireen Hurtado MD MICROBIOLOGY - GENER AL ORDERABLES Performing Organization Address City/[facility]/ZIP Co de Phone Number [facility] [place] [address] * (ABNORMAL) Wound Aspirate/Abscess Culture (03/22/2016 10:54 AM EDT) Abscess/Wound Aspirate Culture Many Escherichia coli(A) [facility] Gram Stain Many White Blood Cells seen Many Gram Negative Rods seen (A) [facility] Organism Escherichia coli(A) [facility] Organism Gram Negative Rods(A) [facility] Specimen from abscess (specimen) [place] / Unknown 03/22/2016 10:54 AM EDT 03/22/2016 12:52 PM EDT Comment:RLQ PAIN SEVERAL DAY S POST-OP. HE PRESENTED TO [facility] ED AND UNDERWENT A CT [...] AL ORDERABLES Performing Organization Address [facility]/ZIP Co de Phone Number [facility] [place] [address] documented in this encounter Visit Diagnoses Diagnosis [...] mL/hr documented in this encounter Care Teams Employee Placement Specialist Relationship Specialty Start Date End Date Maximilian Fall MD [address] [facility] 1 [place] [address] PCP - General 10/01/11 02/13/21 documented as of this encounter
--- OUTSIDE RECORDS SUMMARY | 2024-07-27 13:40 | XMS_ITS | Encounter Summary ---
Author Organization [facility]ly [facility] [place] [address] Care Team Providers Care Medicare Interviewer Name Role Phone Maximilian Fall MD Primary Care Provider [phone] Encounter Details Date Type Department Care Team (Late st Contact Info) Description 09/21/2015 Telephone [place] [address] Marcelle Weinberg, GENERATOR WORKER [facility] [place] [address] Social History Tobacco Use Types Packs/Day Years [...] 9:00 AM EDT Office Visit [place] [address] Dion Barlow MD [facility] [place] [address] 09/01/2024 9:40 AM EDT Office Visit Cardiology at [address] [address] Franky Shaver MD [facility] [place] [address] 09/01/2024 11:20 AM EDT Office Visit Dermatology at [facility] [address] [place] [address] Gómez Mercer MD [facility] DR EDDIE [place] [address] 09/21/2024 2:45 PM EDT Office Visit Pain and Spine Center at [facility] [place] [address] Trung Hoyos MD [facility] [place] [address] documented as of this encounter Visit Diagnoses Not on filedocumented in this encounter Care Teams Medicare Interviewer Relationship Specialty Start Date End Date Maximilian Fall MD [address] [place] [address] PCP - General 10/01/11 02/13/21 documented as of this encounter
--- OUTSIDE RECORDS SUMMARY | 2024-07-27 13:40 | XMS_ITS | Encounter Summary ---
Author Organization [facility] [place] [address] Care Team Providers Care Circuit Manager Name Role Phone Maximilian Fall MD Primary Care Provider [phone] Encounter Details Date Type Department Care Team (Latest Contact Info) Description 07/18/2016 2:18 PM EDT - 07/18/2016 11:59 PM EDT [place] [address] Left sided colitis, unspecified complication; Chronic ulcerative [...] 9:00 AM EDT Office Visit [place] [address] Dion Barlow MD [facility] [place] [address] 09/01/2024 9:40 AM EDT Office Visit Cardiology at [address] [phone] Franky Shaver MD [facility] [place] [address] 09/01/2024 11:20 AM EDT Office Visit Dermatology at [facility] [address] [place] [phone] Gómez Mercer MD [facility] DR [place] [address] 09/21/2024 2:45 PM EDT Office Visit Pain and Spine Center at [facility] [place] [address] Trung Hoyos MD [facility] [address] documented as of this encounter Procedures Procedure Name Priority Date/Time Associated Diagnosis Comments CAMPYLOBACTER ANTIGEN Routine 07/18/2016 2:32 PM EDT Chronic ulcerative enterocolitis, unspecified complication Acute amebic dysentery C. DIFFICILE SCREEN Routine 07/18/2016 2 :32 PM EDT Chronic ulcerative enterocolitis, unspecified complication Acute amebic dysentery STOOL CULTURE SCREEN ([facility]D/[facility]H) Routine 07/18/2016 2:27 PM EDT Chronic ulcerative enterocolitis, unspecified complication Acute amebic dysentery CRYPTOSPORIDIUM OOCYST ANTIGEN ([facility]/CGP/APD) Routine 07/18/2016 2:27 PM EDT Left sided colitis, unspecified complication SHIGA TOXIN ASSAY Routine 07/18/2016 2:2 7 PM EDT Chronic ulcerative enterocolitis, unspecified complication Acute amebic dysentery GIARDIA/CRYPTOSPORIDIUM ANTIGENS ([facility]/CGP/APD/NLH) Routine 07/18/2016 2:27 PM EDT Left sided colitis, unspecified complication GIARDIA ANTIGEN ([facility]/CGP/APD/NLH) Routine 07/18/2016 2:27 PM EDT Left sided colitis, unspecified complication STOOL CULTURE Routine 07/18/2016 2:27 PM EDT Chronic ulcerative enterocolitis, unspecified complication Acute amebic dysentery documented in this encounter Results * Campylobacter Antigen (07/18/2016 2:32 PM EDT) Pathologist [facility] Campylobacter Ag Immunoassay Negative for Campylobacter Antigen [facility] Stool specimen (specimen) 07/18/2016 2:32 PM EDT 07/18/2016 2:32 PM EDT Narrative Resulting Agency Comment Spec In Lab L Karthik Barlow MD MICROBIOLOGY - GENER AL ORDERABLES Performing Organization Address City/[facility]/ZIP Co de Phone Number [facility] [place] [address] * C. Difficile Screen (07/18/2016 2:32 PM [...] - GENER AL ORDERABLES Performing Organization Address [facility] Co de Phone Number [facility] [place] [address] * Shiga Toxin Detection (07/18/2016 2:27 PM EDT) Shiga Toxin Assay EIA Negative for Shiga Toxin 1 EIA Negative for Shiga Toxin 2 [facility] Stool specimen (specimen) 07/18/2016 2:27 PM EDT 07/18/2016 2:32 PM EDT Narrative Resulting Agency Comment Spec In Lab Dion Barlow MD MICROBIOLOGY - GENER AL ORDERABLES Performing Organization Address City/[facility] Co de Phone Number [facility] [place] [address] * Stool culture (07/18/2016 2:27 PM EDT) Stool Culture No enteric pathogens isolated [facility] Stool specimen (specimen) 07/18/2016 2:27 PM EDT 07/18/2016 2:32 PM EDT Narrative Resulting Agency Comment Spec In Lab L Karthik Barlow MD MICROBIOLOGY - GENER AL ORDERABLES Performing Organization Address [facility] Co de Phone Number [facility] [place] [address] * Cryptosporidium Oocyst Antigen (07/18/2016 2:27 PM EDT) Cryptosporidium Antigen Negative Negative [facility] Stool specimen (specimen) 07/18/2016 2:27 PM EDT 07/18/2016 2:32 PM EDT Narrative Resulting Agency Comment Spec In Lab L Karthik Barlow MD MICROBIOLOGY - GENER AL ORDERABLES Performing Organization Address [facility] Co de Phone Number [facility] [place] [address] * Giardia antigen (07/18/2016 2:27 PM EDT) Giardia Antigen Negative Negative [facility] Comment:Examination for othe r intestinal parasites requires foreign travel history. Stool specimen (specimen) 07/18/2016 2:27 PM EDT 07/18/2016 2:32 PM EDT Narrative Resulting Agency Comment Spec In Lab L Karthik Barlow MD MICROBIOLOGY - GENER AL ORDERABLES Performing Organization Address [facility] Co de Phone Number [facility] [place] [address] documented in this encounter Visit Diagnoses Diagnosis Left sided colitis, unspecified complication Chronic ulcerative enterocolitis, unspecified complication Acute amebic dysentery Acute amebic dysentery without mention of abscess documented in this encounter Care Teams Circuit Manager Relationship Specialty Start Date End Date Maximilian Fall MD [address] [place] [address] PCP - General 10/01/11 02/13/21 documented as of this encounter
--- OUTSIDE RECORDS SUMMARY | 2024-07-27 13:40 | XMS_ITS | Encounter Summary ---
[place] [address] Care Team Providers Care Drum Handler Name Role Phone Maximilian Fall MD Primary Care Provider [phone] Encounter Details Date Type Department Care Team (Late st Contact Info) Description 03/21/2016 - 03/21/2016 11:59 PM EDT Hospital Encounter [place] [address] Dr Thomas Temporary Pain Discharge Disposition: Home [...] 9:00 AM EDT Office [place] [phone] Dion Barlow MD [facility] [place] [address] 09/01/2024 9:40 AM EDT Office Visit Cardiology at [address] [phone] Franky Shaver MD [facility] [place] [address] 09/01/2024 11:20 AM EDT Office Visit Dermatology at [address] [address] Gómez Mercer MD [facility] DR EDD[place] [address] 09/21/2024 2:45 PM EDT Office Visit [place] [phone] Trung Hoyos MD [facility] [place] [address] documented as of this encounter Procedures Procedure Name Priority Date/Time Associated Diagnosis Comments FILM LIBRARY STORAGE ONLY CT ABDOMEN AND PELVIS Routine 03/21/2016 12:00 AM EDT Pain documented in this encounter Results * Film Library- Storage Only CT Abdomen & Pelvis (03/21/2016 12:00 AM EDT) Narrative [facility] - 03/21/2016 7:24 PM EDT This exam is for storage only and is auto-finalizing. Dr Leiva [facility] FILM LIBRARY ORD ERABLES [place], [place] documented in this encounter Visit Diagnoses Diagnosis Pain Generalized pain documented in this encounter Care Teams Drum Handler Relationship Specialty Start Date End Date Maximilian Fall MD [address] [place] [address] PCP - General 10/01/11 02/13/21 documented as of this encounter
--- OUTSIDE RECORDS SUMMARY | 2024-07-27 13:40 | XMS_ITS | Encounter Summary ---
Author Organization [facility] Address [facility] [place] [address] Care Team Providers Care Dressage Instructor Name Role Phone Maximilian Fall MD Primary Care Provider [phone] Encounter Details Date Type Department Care Team (Latest Contact Info) Description 02/12/2017 10:14 AM EDT - 02/12/2017 1:50 PM EDT Hospital En[place] [address] Dion Barlow MD [facility] [place] [address] Discharge Disposition: Home Social History Tobacco Use [...] - 02/12/2017 12:37 PM EDT Please call [phone] before 8pm with problems, questions or concerns, after 5pm call the Hospital at [phone] and ask to speak to the [employer] combination teacher and the tapper operator will contact that person for you. [...] sent through Care Everywhere. * COLONOSCOPY: POST-OP (TAMAZIGHT) documented in this encounter Medications at [...] EDT Office [place] [address] Dion Barlow MD [facility] [place] [address] 09/01/2024 9:40 AM EDT Office Visit Cardiology at [address] [place] [address] Franky Shaver MD [facility] [place] [address] 09/01/2024 11:20 AM EDT Office Visit Dermatology at [facility] [address] [place] [address] Gómez Mercer MD [facility] [place] [address] 09/21/2024 2:45 PM EDT Office Visit [place] [address] Trung Hoyos MD [facility] [place] [address] documented as of this encounter Procedures Procedure [...] L Karthik Barlow MD PATHOLOGY/[place] [address] * Specimen to Pathology (surgical or derm) (02/12/2017 12:16 PM EDT) AP Specimen 02/12/2017 12:1 6 PM EDT 02/12/2017 12:16 PM EDT Narrative [facility] - 02/12/2017 12:16 PM EDT Specimen requisition ordered. ??Separate Pathology report to follow L Karthik Barlow MD PATHOLOGY/[place] [address] * Specimen to Pathology (surgical or derm) (02/12/2017 12:16 PM EDT) AP Specimen 02/12/2017 12:1 6 PM EDT 02/12/2017 12:16 PM EDT Narrative [facility] - 02/12/2017 12:16 PM EDT Specimen requisition ordered. ??Separate Pathology report to follow L Karthik Barlow MD PATHOLOGY/[place] [address] * Specimen to Pathology (surgical or derm) (02/12/2017 12:16 PM EDT) AP Specimen 02/12/2017 12:1 6 PM EDT 02/12/2017 12:16 PM EDT Narrative [facility] - 02/12/2017 12:16 PM EDT Specimen requisition ordered. ??Separate Pathology report to follow L Karthik Barlow MD PATHOLOGY/CYTOLOGY Ozzei MIKE [facility] [place] [address] * Surgical Pathology Report (02/12/2017 12:15 PM EDT) Final Diagnosis [id number] ?Location: 4T; EA07; A The signing pathologist [...] CEE [facility] [place] [address] * COLONOSCOPY (02/12/2017 11:40 AM EDT) COLONOSCOPY [facility] Endoscopy ___ Procedure Date: 02/12/2017 11:40 AM ? Patient Name: Brian Rodriguez ? Date of : 1950 ? Age: 66 ? Order #: [id number] ? Instrument Name: [id number] ? ___ Procedure: ? Colonoscopy Indications: ? High risk colon cancer surveillance: ? Ulcerative colitis Patient Profile: ? This is a 66 year old male. This ? patient has left-sided ulcerative ? colitis on sulfasalazine and ? Cortifoam and is experiencing mild ? symptoms. Providers: ? Davina Barlow MD, Vandana Love ? Mike, RONY, Sonal [facility], ? Rate And Cost Analyst Referring MD: ?Maximilian Fall MD Medicines: ? [...] preparation was evaluated using ? the BBPS ([place] Bowel Preparation ? Scale) with scores of: [...] [facility]/ZIP Co de Phone Number [facility] [place] [address] documented in this encounter Visit Diagnoses Not [...] RN) documented in this encounter Care Teams Dressage Instructor Relationship Specialty Start Date End Date Maximilian Fall MD [address] [place] [address] PCP - General 10/01/11 02/13/21 documented as of this encounter
--- OUTSIDE RECORDS SUMMARY | 2024-07-27 13:40 | XMS_ITS | Encounter Summary ---
Author Organization [facility] Address [facility] [place] [address] Care Team Providers Care Marine Electrician Apprentice Name Role Phone Maximilian Fall MD Primary Care Provider [phone] Encounter Details Date Type Department Care Team (Late st Contact Info) Description 09/11/2014 Orders Only [place] [phone] Bethany Trivedi RN Other ulcerative colitis (Primary [...] AM EDT Office Visit [place] [phone] Dion Barlow MD [facility] [place] [address] 09/01/2024 9:40 AM EDT Office Visit Cardiology at [address] [phone] Franky Shaver MD [facility] [place] [address] 09/01/2024 11:20 AM EDT Office Visit Dermatology at [facility] [address] [place] [address] Gómez Mercer MD [facility] DR [place] [address] 09/21/2024 2:45 PM EDT Office Visit Pain and Spine Center at [facility] [place] [address] Trung Hoyos MD [facility] [place] [address] documented as of this encounter Visit Diagnoses Diagnosis Other ulcerative colitis- Primary documented in this encounter Care Teams Marine Electrician Apprentice Relationship Specialty Start Date End Date Maximilian Fall MD [address] [place] [address] PCP - General 10/01/11 02/13/21 documented as of this encounter
--- OUTSIDE RECORDS SUMMARY | 2024-07-27 13:40 | XMS_ITS | Encounter Summary ---
Author Organization [facility] Address [facility] [place] [address] Care Team Providers Care Rock Duster Name Role Phone Maximilian Fall MD Primary Care Provider [phone] Reason for Visit * Reason Comments Follow-up Encounter Details Date Type Department Care Team (Late st Contact Info) Description 09/17/2015 4:00 PM EDT Office [place] [address] Marcelle Weinberg, JAZMINE [facility] [place] [address] Left sided colitis, unspecified complication Social History [...] Overview Note: ?? Colonoscopy 04/08/10 ([facility] [...] 9:00 AM EDT Office [place] [address] Dion Barlow MD [facility] [place] [address] 09/01/2024 9:40 AM EDT Office Visit Cardiology at [address] [address] Franky Shaver MD [facility] [place] [address] 09/01/2024 11:20 AM EDT Office Visit Dermatology at [facility] [address] [place] [address] Gómez Mercer MD [facility] DR EDDIE [place] [address] 09/21/2024 2:45 PM EDT Office Visit [place] [address] Trung Hoyos MD [facility] [place] [address] documented as of this encounter Procedures Procedure [...] City/[facility]/ZIP Co de Phone Number CERGIOVANNI ORDOÑEZENNIUM [...] EDT) C-Reactive Protein High Sensitivity 2.9 mg/L [facility] Comment: Interpretations: 1) For accurate cardiac [...] CHEMISTRY ORDERABLES Performing Organization Address [facility] de Phone Number [facility] * (ABNORMAL) Sedimentation rate (09/17/2015 4:30 PM EDT) [facility] Sedimentation Rate Automated 17(H) 0 - 15 mm/hr [facility] Blood specimen (specimen) 09/17/2015 4:30 PM EDT 09/17/2015 4:33 PM EDT Narrative Resulting Agency Comment Spec In Lab L Karthik Barlow MD HEMATOLOGY ORDERABLE S Performing Organization Address [facility] Co de Phone Number [facility] * (ABNORMAL) CMP w/fasting Glucose (09/17/2015 [...] of Diabetes Mellitus, Position Statement from the [place] [employer]. ??Diabetes Care, Volume 33, Supplement 1, Nov 2009 Blood Urea Nitrogen 17 10 - 20 mg/dL CERNER MILLENNIUM Creatinine 1.10 0.80 - 1.50 mg/dL CERNER MILLENNIUM Comment: Please note that the pediatric reference intervals supplied above were not validated at [facility]. Results from [...] the following links into your internet browser. http://[employer]/DHnkdep [email or web address]/DHMCnkf Blood specimen (specimen) 09/17/2015 4:30 PM EDT 09/17/2015 4:33 PM EDT Narrative Resulting Agency Comment Spec In Lab L Karthik Barlow MD CHEMISTRY ORDERABLES [facility] documented in this encounter Visit Diagnoses Diagnosis Left sided colitis, unspecified complication documented in this encounter Care Teams Rock Duster Relationship Specialty Start Date End Date Maximilian Fall MD [address] [place] [address] PCP - General 10/01/11 02/13/21 documented as of this encounter
--- OUTSIDE RECORDS SUMMARY | 2024-07-27 13:40 | XMS_ITS | Encounter Summary ---
Author Organization [facility] Address [facility] [place] [address] Care Team Providers Care Injection Molding Machine Setter Name Role Phone Maximilian Fall MD Primary Care Provider [phone] Reason for Visit * Reason Comments Follow-up Encounter Details Date Type Department Care Team (Late st Contact Info) Description 04/08/2016 1:30 PM EDT Office Visit [place] [address] Marcelle Weinberg, AJZMINE [facility] [place] [address] Ulcerative chronic pancolitis, unspecified complication Social History [...] Overview Note: ?? Colonoscopy 04/08/10 (Dr. Gomes [facility]) - inflammation only within the [...] COLONOSCOPY, DIAGNOSTIC performed by Dion OSULLIVAN at [facility] ENDOSCOPY ??? Pro sigmoidoscopy, diagnostic 03/16/2012 FLEXIBLE SIGMOIDOSCOPY performed by YUDI MALLOY at [facility] ENDOSCOPY ??? Upper gi endoscopy, exam 10/01/2012 UPPER GI ENDOSCOPY performed by Dion OSULLIVAN at [facility] ENDOSCOPY ??? Pro colonoscopy, diagnostic 07/13/2014 COLONOSCOPY, DIAGNOSTIC performed by Dion Osullivan MD at [facility] ENDOSCOPY No family history on file. [...] 9:00 AM EDT Office [place] [address] Dion Osullivan MD [facility] [place] [address] 09/01/2024 9:40 AM EDT Office Visit Cardiology at [address] [address] Franky Shaver MD [facility] [place] [address] 09/01/2024 11:20 AM EDT Office Visit Dermatology at [facility] [address] [place] [address] Gómez Mercer MD [facility] [place] [address] 09/21/2024 2:45 PM EDT Office Visit [facility] [place] [address] Trung Hoyos MD [facility] [place] [address] documented as of this encounter Visit Diagnoses Diagnosis Ulcerative chronic pancolitis, unspecified complication documented in this encounter Care Teams Injection Molding Machine Setter Relationship Specialty Start Date End Date Maximilian Fall MD [address] [place] [address] PCP - General 10/01/11 02/13/21 documented as of this encounter
--- OUTSIDE RECORDS SUMMARY | 2024-07-27 13:40 | XMS_ITS | Encounter Summary ---
Author Organization [facility] [place] [address] Care Team Providers Care Manager Baby Name Role Phone Maximilian Fall MD Primary Care Provider [phone] Encounter Details Date Type Department Care Team (Latest Contact Info) Description 07/14/2016 11:55 AM EDT Laboratory Appointment Lab [address] [place] [phone] Chronic ulcerative enterocolitis, unspecified complication; Acute amebic [...] 9:00 AM EDT Office [place] [phone] Dion Barlow MD [facility] [place] [address] 09/01/2024 9:40 AM EDT Office Visit Cardiology at [address] [phone] Franky Shaver MD [facility] [place] [address] 09/01/2024 11:20 AM EDT Office Visit Dermatology at [facility] [address] [place] [address] Gómez Mercer MD [facility] [address] [place] [address] 09/21/2024 2:45 PM EDT Office Visit Pain and Spine Center at [facility] [place] [address] Trung Hoyos MD [facility] [place] [address] documented as of this encounter Procedures Procedure [...] 12:21 PM EDT) Neutrophil % 60.2 % [facility] Neutrophil Absolute 3.77 1.50 - 6.30 x10(3)/[facility] Lymph % 27.2 % [facility] Lymphocytes Abs 1.7 1.0 - 3.6 x10(3)/[facility] Monocyte % 9.0 % [facility] Monocyte Abs 0.6 0.2 - 1.0 x10(3)/[facility] Eos % 2.6 % [facility] Eosinophils Abs 0.2 0.0 - 0.5 x10(3)/[facility] Basophil % 0.5 % [facility] Baso Absolute 0.0 0.0 - 0.2 x10(3)/[facility] Immature Gran % 0.50 % [facility] Comment: Immature granulocytes(IG's)percentage and absolute count will include metamyelocytes, myelocytes, and promyelocytes. Blood smears from CBCs yielding IG's will be scanned manually for concordance. If this scan disagrees with the automated IG or if promyelocytes are noted, a manual differential will be performed. Immature Gran Absolute 0.03 0.00 - 0.05 x10(3)/[facility] Blood specimen (specimen) 07/14/2016 12:21 PM EDT 07/14/2016 12:29 PM EDT Narrative Resulting Agency Comment Spec In Lab L Karthik Barlow MD HEMATOLOGY ORDERABLE S [facility] [place] [place] [address] * (ABNORMAL) Hemogram (07/14/2016 12:21 PM EDT) Pathologist [facility] White Blood Cell 6.2 4.0 - 10.0 x10(3)/mc L [facility] Red Blood Cell 4.11(L) 4.63 - 6.08 x10(6)/mc L [facility] Hemoglobin 13.4(L) 13.7 - 17.5 gm/dL [facility] Hematocrit 40.5 40.0 - 51.0 % [facility] Mean Cell Volume 98.5(H) 79.0 - 92.0 fL [facility] Mean Cell Hemoglobin 32.6(H) 25.6 - 32.2 pg [facility] Mean Cell Hemoglobin Concentration 33.1 32.0 - 36.5 gm/dL [facility] Platelet 214 145 - 370 x10(3)/mc L [facility] RDW Standard Deviation 47.4(H) 35.0 - 46.0 fL [facility] RDW coefficient of variation 13.2 10.9 - 14.4 % [facility] Mean Platelet Volume 11.1 9.0 - 12.0 fL [facility] NRBC% auto 0.0 % [facility] NRBC Absolute 0.000 0.000 - 0.012 x10(3)/mc L [facility] Blood specimen (specimen) 07/14/2016 12:21 PM EDT 07/14/2016 12:29 PM EDT Narrative Resulting Agency Comment Spec In Lab L Karthik Barlow MD HEMATOLOGY ORDERABLE S Performing Organization Address City/[facility]/ZIP Co de Phone Number [facility] [place] [address] * (ABNORMAL) Sedimentation rate (07/14/2016 12:21 PM EDT) Sedimentation Rate Automated 17(H) 0 - 15 mm/hr [facility] Blood specimen (specimen) 07/14/2016 12:21 PM EDT 07/14/2016 12:29 PM EDT Narrative Resulting Agency Comment Spec In Lab L Karthik Barlow MD HEMATOLOGY ORDERABLE S [facility] [place] [address] * Comprehensive metabolic panel (non-fasting) (07/14/2016 12:21 [...] the following links into your internet browser. http://[employer]/DHnkdep http://[employer]/DHMCnkf Blood specimen (specimen) 07/14/2016 12:21 PM EDT 07/14/2016 12:29 PM EDT Narrative Resulting Agency Comment Spec In Lab L Karthik Barlow MD CHEMISTRY ORDERABLES [facility] [place] [address] * High Sensitivity CRP (07/14/2016 12:21 PM EDT) [facility] C-Reactive Protein High Sensitivity 4.8 mg/L [facility] Comment: Interpretations: 1) For [...] MD CHEMISTRY ORDERABLES [facility] [place] [place] [address] documented in this encounter Visit Diagnoses Diagnosis Chronic ulcerative enterocolitis, unspecified complication Acute amebic dysentery Acute amebic dysentery without mention of abscess documented in this encounter Care Teams Manager Baby Relationship Specialty Start Date End Date Maximilian Fall MD [address] [place] [address] PCP - General 10/01/11 02/13/21 documented as of this encounter
--- OUTSIDE RECORDS SUMMARY | 2024-07-27 13:40 | XMS_ITS | Encounter Summary ---
Author Organization [facility] Address [facility] [place] [address] Care Team Providers Care Bucket Pusher Name Role Phone Maximilian Fall MD Primary Care Provider [phone] Reason for Visit * Reason Comments Follow-up Encounter Details Date Type Department Care Team (Late st Contact Info) Description 05/16/2016 10:30 AM EDT Office Visit [place] [address] Dion Barlow MD [facility] [place] [address] Other ulcerative colitis with complication Social History [...] months. 10 min of this 15 min [id number] visit was spent counseling the patient in the issues outlined above. Davina Barlow MD Disbursing Officervp outcomes Section of Gastroenterology [place] [address] documented in this encounter Plan of Treatment Upcoming Encounters Date Type Department Care Team (Late st Contact Info) Description 08/15/2024 9:00 AM EDT Office Visit [place] [phone] Dion Barlow MD [facility] [place] [address] 09/01/2024 9:40 AM EDT Office Visit Cardiology at [address] [place] [address] Franky Shaver MD [facility] [place] [address] 09/01/2024 11:20 AM EDT Office Visit Dermatology at [facility] [address] [place] [address] Gómez Mercer MD [facility] [place] [address] 09/21/2024 2:45 PM EDT Office Visit [facility] [place] [address] Trung Hoyos MD [facility] [place] [address] documented as of this encounter Visit Diagnoses Diagnosis Other ulcerative colitis with complication documented in this encounter Care Teams Bucket Pusher Relationship Specialty Start Date End Date Maximilian Fall MD [address] [facility] [place] [address] PCP - General 10/01/11 02/13/21 documented as of this encounter
--- OUTSIDE RECORDS SUMMARY | 2024-07-27 13:40 | XMS_ITS | Encounter Summary ---
Author Organization [facility] [place] [address] Care Team Providers Care Coordinator Of Evaluation Name Role Phone Maximilian Fall MD Primary Care Provider [phone] Reason for Visit * Reason Comments Follow-up Encounter Details Date Type Department Care Team (Late st Contact Info) Description 11/06/2015 11:00 AM EST Office [place] [address] Marcelle Weinberg, JAZMINE [facility] [place] [address] Chronic ulcerative enterocolitis, unspecified complication; Abdominal pain, [...] Progress Notes * Marcelle Weinberg Dg Conte, WOOD FORM BUILDER - 11/06/2015 10:28 AM EST Patient Active [...] Dion OSULLIVAN at [facility]OS[facility] ??? Pro sigmoidoscopy, diagnostic 03/16/2012 FLEXIBLE SIGMOIDOSCOPY performed by YUDI MALLOY at [facility] ??? Upper gi endoscopy, exam 10/01/2012 UPPER GI ENDOSCOPY performed by Dion OSULLIVAN at [facility] ??? Pro colonoscopy, diagnostic 07/13/2014 COLONOSCOPY, DIAGNOSTIC performed by Dion Osullivan MD at [facility] Physical Exam Constitutional: He appears well-developed [...] 9:00 AM EDT Office [place] [address] Dion Osullivan MD [facility] [place] [address] 09/01/2024 9:40 AM EDT Office Visit Cardiology at [address] [place] [address] Franky Shaver MD [facility] [place] [address] 09/01/2024 11:20 AM EDT Office Visit Dermatology at [facility] [address] [place] [address] Gómez Mercer MD [facility] [place] [address] 09/21/2024 2:45 PM EDT Office Visit Pain and Spine Center at [facility] [place] [address] Trung Hoyos MD [facility] [place] [address] documented as of this encounter Results * C. Difficile Screen (11/06/2015 2:30 PM EST) Pathologist [facility] C Diff Interp Negative Negative CERNER MILLENNIUM Stool specimen (specimen) 11/06/2015 2:30 PM EST 11/06/2015 2:30 PM EST Narrative Resulting Agency Comment Spec In Lab L Karthik Osullivan MD MICROBIOLOGY - GENER AL ORDERABLES [facility] * (ABNORMAL) Urinalysis with reflex Culture (11/06/2015 [...] Urine Dipstick Hazy(A) Clear CERNER MILLENNIUM Specific [place] Urine Automated 1.020 1.002 - 1.030 CERNER [...] complication documented in this encounter Care Teams Coordinator Of Evaluation Relationship Specialty Start Date End Date Maximilian Fall MD [address] [place] [address] PCP - General 10/01/11 02/13/21 documented as of this encounter
--- OUTSIDE RECORDS SUMMARY | 2024-07-27 13:40 | XMS_ITS | Encounter Summary ---
Author Organization [facility] [place] [address] Care Team Providers Care Marble Installer Supervisor Name Role Phone Maximilian Fall MD Primary Care Provider [phone] Encounter Details Date Type Department Care Team (Late Contact Info) Description 11/06/2015 Orders [place] [phone] Marcelle Weinebrg, JAZMINE [facility] [place] [address] Ulcerative colitis without complications Social History Tobacco [...] 9:00 AM EDT Office [place] [address] Dion Barlow MD [facility] [place] [address] 09/01/2024 9:40 AM EDT Office Visit Cardiology at [address] [place] [address] Franky Shaver MD [facility] [place] [address] 09/01/2024 11:20 AM EDT Office Visit Dermatology at [facility] [address] [place] [address] Gómez Mercer MD [facility] DR EDDIE [place] [address] 09/21/2024 2:45 PM EDT Office Visit Pain and Spine Center at [facility] [place] [address] Trung Hoyos MD [facility] [place] [address] documented as of this encounter Visit Diagnoses Diagnosis Ulcerative colitis without complications Ulcerative colitis, unspecified documented in this encounter Care Teams Marble Installer Supervisor Relationship Specialty Start Date End Date Maximilian Fall MD [address] [facility] 1 [place] [address] PCP - General 10/01/11 02/13/21 documented as of this encounter
--- OUTSIDE RECORDS SUMMARY | 2024-07-27 13:41 | XMS_ITS | Encounter Summary ---
Author Organization [facility] Address [facility] [place] [address] Care Team Providers Care Dispatch Clerk Name Role Phone Maximilian Fall MD Primary Care Provider [phone] Encounter Details Date Type Department Care Team (Latest Contact Info) Description 10/01/2012 2:23 PM EST - 10/01/2012 6:31 PM EST Hospital En[place] [address] Dion Osullivan MD [facility] [place] [address] Discharge Disposition: Home Social History Tobacco Use [...] GI ENDOSCOPY: WHAT TO EXPECT AT HOME (HUNGARIAN) documented in this encounter Medications at [...] Osullivan MD - 10/01/2012 5:07 PM EST [facility] Operative Note Patient Name: Naya Rodriguez : [id number] MR#: [id number] Case Date: 10/01/2012 Surgeon: Surgeon(s) and Role: [...] 9:00 AM EDT Office [place] [address] Dion Osullivan MD [facility] [place] [address] 09/01/2024 9:40 AM EDT Office Visit Cardiology at [address] [phone] Franky Shaver MD [facility] [place] [address] 09/01/2024 11:20 AM EDT Office Visit Dermatology at [address] [place] [address] Gómez Mercer MD [facility] [place] [address] 09/21/2024 2:45 PM EDT Office Visit [place] [address] Trung Hoyos MD [facility] [place] [address] documented as of this encounter Procedures Procedure [...] 5:54 PM EST) Surgical Pathology Report ? [facility] ? Provider: ?? Dion OSULLIVAN ?Pt. Name: ?? MICHAEL NAYA Joya ? Acc #: ?[id number] ?Pt. ? Col Date: ?? 10/01/2012 ? [...] CEE Performing Organization Address City/[facility] Co de Phone Number [facility] * Specimen to Pathology (surgical or derm) (10/01/2012 5:09 PM EST) AP Specimen 10/01/2012 5:09 PM EST 10/01/2012 5:09 PM EST Narrative [facility] - 10/01/2012 5:09 PM EST Specimen requisition ordered. ??Separate Pathology report to follow L Karhtik Osullivan MD PATHOLOGY/CYTOLOGY O CEE [facility] * UPPER GI ENDOSCOPY (10/01/2012 4:41 PM EST) UPPER GI ENDOSCOPY [facility] Patient Name: Naya Rodriguez ? Procedure Date: 10/01/2012 4:41 PM ? Date of : 1950 ? Age: 62 ? Order #: [id number] ? Procedure: ? Upper GI endoscopy Indications: ? Epigastric abdominal pain Providers: ? L Karthik Osullivan MD, Alannah Singletary, ? RN, Mona Osborne, Rectangular Tank Cooper Referring : ?Maximilian Fall MD Medicines: ? [...] GENERAL SURGICAL ORD ERABLES Performing Organization Address [facility] Co de Phone Number PROVATION * POCT GLUCOSE (10/01/2012 4:27 PM EST) Glucose, POC 84 60 - 199 mg/dL [facility] Comment: Supplemental ranges: <110 mg/dL before [...] RN) documented in this encounter Care Teams Dispatch Clerk Relationship Specialty Start Date End Date Maximliian Fall MD [address] [place] [address] PCP - General 10/01/11 02/13/21 documented as of this encounter
--- OUTSIDE RECORDS SUMMARY | 2024-07-27 13:41 | XMS_ITS | Encounter Summary ---
Author Organization [facility] [place] [address] Care Team Providers Care Efficiency Clerk Name Role Phone Maximilian Fall MD Primary Care Provider [phone] Encounter Details Date Type Department Care Team (Late st Contact Info) Description 03/03/2012 Orders [place] [phone] Mica Gore APRN [facility] [place] [address] Ulcerative colitis (Primary Dx) Social History Tobacco [...] 9:00 AM EDT Office [place] [address] Dion Barlow MD [facility] [place] [address] 09/01/2024 9:40 AM EDT Office Visit Cardiology at [address] [place] [address] Franky Shaver MD [facility] [place] [address] 09/01/2024 11:20 AM EDT Office Visit Dermatology at [facility] [address] [place] [address] Gómez Mercer MD [facility] DR EDDIE [place] [address] 09/21/2024 2:45 PM EDT Office Visit [facility] [place] [phone] Trung Hoyos MD [facility] [place] [address] documented as of this encounter Procedures Procedure Name Priority Date/Time Associated Diagnosis Comments FLEXIBLE SIGMOIDOSCOPY Routine 2 1:15 PM EDT Ulcerative colitis documented in this encounter Results * FLEXIBLE SIGMOIDOSCOPY (03/16/2012 1:15 PM EDT) [facility] Signature FLEXIBLE SIGMOIDOSCOPY [facility] Endoscopy Patient Name: Brian Rodriguez ? Procedure Date: 03/16/2012 1:15 PM ? Date of : 1950 ? Age: 61 ? Order #: [id number] ? Procedure: ? Flexible Sigmoidoscopy Indications: ? pt with active UC, assess severity ? prior to entry in MTX study Providers: ? Enrico Tellez MD, April Augustine ? RONY Archibald, Kingsley Oneal, ? Utilization Manager Referring MD: ?Maximilian Fall MD Requesting [...] GENERAL SURGICAL ORD ERABLES Performing Organization Address City/State/[facility] Co de Phone Number [facility]ATION documented in this encounter Visit Diagnoses Diagnosis Ulcerative colitis- Primary Ulcerative colitis, unspecified documented in this encounter Care Teams Efficiency Clerk Relationship Specialty Start Date End Date Maximilian Fall MD [address] [place] [address] PCP - General 10/01/11 02/13/21 documented as of this encounter
--- OUTSIDE RECORDS SUMMARY | 2024-07-27 13:41 | XMS_ITS | Encounter Summary ---
Author Organization [facility] Address [facility] [place] [address] Care Team Providers Care Recreation Technician Name Role Phone More Naylor MD Primary Care Provider [phone] Reason for Visit * Reason Comments Follow-up Encounter Details Date Type Department Care Team (Late st Contact Info) Description 04/02/2012 12:30 PM EDT Follow-Up [place] [address] Marcelle Weinberg, JAZMINE [facility] [place] [address] UC (ulcerative colitis) (Primary Dx) Discharge Disposition: [...] ??? Ulcerative colitis Colonoscopy 04/08/10 (Dr. Gomes [facility]) - inflammation only within the rectum and sigmoid; extent of the exam was to the hepatic flexure; biopsies proximal to the sigmoid nl Repeat exam 11/27/11 ([facility] [...] CC: MORE NAYLOR MD [address] [facility] [address] documented in this encounter Plan of Treatment Upcoming Encounters Date Type Department Care Team (Late st Contact Info) Description 08/15/2024 9:00 AM EDT Office Visit [place] [phone] Dion Barlow MD [facility] [place] [address] 09/01/2024 9:40 AM EDT Office Visit Cardiology at [address] [phone] Franky Shaver MD [facility] [place] [address] 09/01/2024 11:20 AM EDT Office Visit Dermatology at [facility] [address] [place] [phone] Gómez Mercer MD [facility] [address] [place] [address] 09/21/2024 2:45 PM EDT Office Visit [facility] [place] [address] Trung Hoyos MD [facility] [place] [address] documented as of this encounter Procedures Procedure [...] MD HEMATOLOGY ORDERABLE S Performing Organization Address City/[facility]/ZIP Co de Phone Number DURGA FREDERICK * [...] CHEMISTRY ORDERABLES Performing Organization Address [facility] de Phone Number [facility] TIAGOENNI[facility] * Amylase (04/02/2012 1:39 PM EDT) Amylase 32 28 - 100 unit/L [facility]ER [facility] Blood specimen (specimen) 04/02/2012 1:39 PM EDT 04/02/2012 1:48 PM EDT Narrative Resulting Agency Comment Spec In Lab L Karthik Barlow MD CHEMISTRY ORDERABLES Performing Organization Address [facility] Phone Number [facility] * High Sensitivity CRP (04/02/2012 1:39 PM [...] CHEMISTRY ORDERABLES Performing Organization Address [facility] Number [facility] * Sedimentation rate (04/02/2012 1:39 PM EDT) Sedimentation Rate Automated 12 0 - 15 mm/hr [facility] Blood specimen (specimen) 04/02/2012 1:39 PM EDT 04/02/2012 1:48 PM EDT Narrative Resulting Agency Comment Spec In Lab L Karthik Barlow MD HEMATOLOGY ORDERABLE S Performing Organization Address [facility] Number [facility] * (ABNORMAL) CMP w/fasting Glucose (04/02/2012 1:39 PM EDT) Glucose Fasting 158(H) 65 - 99 mg/dL [facility] Comment: ?Fasting* Glucose Interpretive Criteria Normal [...] of Diabetes Mellitus, Position Statement from the [place] [employer]. ??Diabetes Care, Volume 33, Supplement [...] Karthik Barlow MD CHEMISTRY ORDERABLES [facility] * (ABNORMAL) CBC (with Diff) (04/02/2012 [...] unspecified documented in this encounter Care Teams Recreation Technician Relationship Specialty Start Date End Date More Naylor MD [address] [place] [address] PCP - General 10/01/11 02/13/21 documented as of this encounter
--- OUTSIDE RECORDS SUMMARY | 2024-07-27 13:41 | XMS_ITS | Encounter Summary ---
Author Organization [facility] Address [facility] [place] [address] Care Team Providers Care Assistant Professor Of Psychology Name Role Phone Maximilian Fall MD Primary Care Provider [phone] Reason for Visit * Reason Onset Date Comments Medication Refill 11/03/2013 Encounter Details Date Type Department Care Team (Late st Contact Info) Description 11/03/2013 Refill [place] [address] [facility] [place] [address] Social History Tobacco Use Types Packs/Day Years [...] with Dr Barlow and it should be [id number] take 2 tabs twice a day or 2GM documented in this encounter Plan of Treatment Upcoming Encounters Date Type Department Care Team (Late st Contact Info) Description 08/15/2024 9:00 AM EDT Office Visit [place] [address] [facility] [address] 09/01/2024 9:40 AM EDT Office Visit Cardiology at [address] [place] [address] [facility] [place] [address] 09/01/2024 11:20 AM EDT Office Visit Dermatology at [place] [address] [place] [address]cer [address] [facility] DR [place] [address] 09/21/2024 2:45 PM EDT Office Visit [facility] [place] [address] [facility] [address] documented as of this encounter Visit Diagnoses Not on filedocumented in this encounter Care Teams Assistant Professor Of Psychology Relationship Specialty Start Date End Date Maximilian Fall MD [address] [place] [address] PCP - General 10/01/11 02/13/21 documented as of this encounter
--- OUTSIDE RECORDS SUMMARY | 2024-07-27 13:41 | XMS_ITS | Encounter Summary ---
Author Organization [facility] Address [facility] [place] [address] Care Team Providers Care Lead Assistant Manager Name Role Phone Maximilian Fall MD Primary Care Provider [phone] Encounter Details Date Type Department Care Team (Late st Contact Info) Description 11/27/2011 1:00 PM EST - 11/27/2011 1:45 PM EST Surgery [place] [address] Dion Osullivan MD [facility] [place]STRO[place] [address] COLONOSCOPY, DIAGNOSTIC (WRVU 3.26) Social History Tobacco [...] - 11/27/2011 2:37 PM EST Please call [phone], before 5pm with problems, questions or concerns, after 5pm call the Hospital at [phone] and ask to speak to the Veneer Supervisor media consultant outside sales and the filling machine operator will contactthat person for you. Discharge instructions reviewed with patient who expresses understanding. * Patient Instructions* Dion Osullivan MD - 11/27/2011 1:07 PM EST Please see Recommendations in the Provation procedure report which is documented in the procedural note in E-DH. * Attachments The following attachments cannot be sent through Care Everywhere. * COLONOSCOPY: WHAT TO EXPECT AT HOME (ANGOLAN) documented in this encounter Medications at Time [...] Osullivan MD - 11/27/2011 1:06 PM EST [facility] Operative Note Patient Name: Naya Rodriguez : [id number] MR#: [id number] Case Date: 11/27/2011 Surgeon: Surgeon(s) and Role: * Dion OSULLIVAN MD - Primary Please see the Provation procedure report in the Procedures tab in eDH. documented in this encounter Plan of Treatment Upcoming Encounters Date Type Department Care Team (Late st Contact Info) Description 08/15/2024 9:00 AM EDT Office Visit [place] [phone] Dion Osullivan MD [facility] [place]STROENTER[place] [address] 09/01/2024 9:40 AM EDT Office Visit Cardiology at [address] [address] Franky Shaver MD [facility] [place] [address] 09/01/2024 11:20 AM EDT Office Visit Dermatology at [address] [address] Gómez Mercer MD [facility] DR EDDIE SANCHEZ-[place]MAT[place] [address] 09/21/2024 2:45 PM EDT Office Visit [facility] [place] [address] Trung Hoyos MD [facility] PAIN [place] [address] documented as of this encounter Procedures Procedure [...] 4:38 PM EST) Surgical Pathology Report ? [facility] ? Provider: ?? iDon OSULLIVAN ?Pt. Name: ?? NAYA RODRIGUEZ ? Acc #: ?[id number] ?Pt. ? Col Date: ?? 11/27/2011 ?/Sex: [...] Stephen, rubbery mucosal polyp, the larger ? [facility] ? Provider: ?? Dion OSULLIVAN ?Pt. Name: ?? NAYA RODRIGUEZ ? Acc #: ?[id number] ?Pt. ? Col Date: ?? 11/27/2011 ?/Sex: [...] Performing Organization Address [facility] Co de Phone Number [facility] * Specimen to Pathology (surgical or derm) (11/27/2011 1:53 PM EST) AP Specimen 11/27/2011 1:53 PM EST 11/27/2011 1:53 PM EST Narrative [facility] - 11/27/2011 1:53 PM EST Specimen requisition ordered. ??Separate Pathology report to follow L Karthik Osullivan MD PATHOLOGY/CYTOLOGY O CEE Performing Organization Address City/[facility] Co de Phone Number [facility] * Specimen to Pathology (surgical or derm) (11/27/2011 1:53 PM EST) AP Specimen 11/27/2011 1:53 PM EST 11/27/2011 1:53 PM EST Narrative [facility] - 11/27/2011 1:53 PM EST Specimen requisition ordered. ??Separate Pathology report to follow L Karthik Osullivan MD PATHOLOGY/CYTOLOGY O CEE Performing Organization Address [facility] Co de Phone Number [facility] * COLONOSCOPY (11/27/2011 1:01 PM EST) COLONOSCOPY [facility] Endoscopy Patient Name: Naya Rodriguez ? Procedure Date: 11/27/2011 01:01:31 PM ? Date of : 1950 ? Age: 61 ? Procedure: ? Colonoscopy Indications: ? Follow-up of left-sided chronic ? ulcerative colitis Providers: ? L Karthik Osullivan MD, Tyron Cee, ? RN, Qing López, Container Finisher Referring MD: ?Maximilian Fall MD Medicines: ? [...] time) documented in this encounter Care Teams Lead Assistant Manager Relationship Specialty Start Date End Date Maximilian Fall MD [address] [place] [address] PCP - General 10/01/11 02/13/21 documented as of this encounter
--- OUTSIDE RECORDS SUMMARY | 2024-07-27 13:41 | XMS_ITS | Encounter Summary ---
Author Organization [facility] Address [facility] [place] [address] Care Team Providers Care Production Operator Name Role Phone Maximilian Fall MD Primary Care Provider [phone] Encounter Details Date Type Department Care Team (Latest Contact Info) Description 03/02/2012 9:31 AM EDT - 03/02/2012 11:59 PM EDT Hospital Encounter XRay at [address] [place] [address] CLINIC, Dion Edmonds MD [facility] [place] [address] Exam for clinical research Discharge Disposition: Home [...] AM EDT Office [place] [address] Dion Barlow MD [facility] [place] [address] 09/01/2024 9:40 AM EDT Office Visit Cardiology at [address] [phone] Franky Shaver MD [facility] [place] [address] 09/01/2024 11:20 AM EDT Office Visit Dermatology at [facility] [address] [place] [address] Gómez Mercer MD [facility] DR EDD[place] [address] 09/21/2024 2:45 PM EDT Office Visit [facility] [place] [address] Trung Hoyos MD [facility] [place] [address] documented as of this encounter Procedures Procedure [...] trial documented in this encounter Care Teams Production Operator Relationship Specialty Start Date End Date Maximilian Fall MD [address] [place] [address] PCP - General 10/01/11 02/13/21 documented as of this encounter
--- OUTSIDE RECORDS SUMMARY | 2024-07-27 13:41 | XMS_ITS | Encounter Summary ---
Author Organization [facility] Address [facility] [place] [address] Care Team Providers Care Chemical Production Machine Operator Name Role Phone More Naylor MD Primary Care Provider [phone] Reason for Visit * Reason Comments Follow-up Encounter Details Date Type Department Care Team (Late st Contact Info) Description 03/06/2014 8:30 AM EDT [place] [address] Dion Barlow MD [facility] [place] [address] Ulcerative colitis, with rectal bleeding (Primary Dx) [...] colitis Colonoscopy 04/08/10 (Dr. Gomes [facility]) - inflammation only within the rectum and [...] or most commonly, upper respiratory infections; positive nilb-geafmh-honxuqbo DNA antibodies, and rarely a lupus-like syndrome; [...] # Follow-up in 3 months with Farideh Weinbreg APRN and with me in 6 months. CC: MORE NAYLOR MD [address] [place] [address] documented in this encounter Plan of Treatment Upcoming Encounters Date Type Department Care Team (Late st Contact Info) Description 08/15/2024 9:00 AM EDT Office [place] [address] Dion Barlow MD [facility] [place] [address] 09/01/2024 9:40 AM EDT Office Visit Cardiology at [address] [address] Franky Shaver MD [facility] [place] [address] 09/01/2024 11:20 AM EDT Office Visit Dermatology at [facility] [address] [place] [address] Gómez Mercer MD [facility] [place] [address] 09/21/2024 2:45 PM EDT Office Visit [place] [address] Trung Hoyos MD [facility] [place] [address] documented as of this encounter Procedures Procedure [...] L Karthik Barlow MD URINE ORDERABLES CERNER [employer] MediaENNIUM * Differential, Automated (03/06/2014 9:39 AM EDT) Neutrophil % 64.8 34.0 - 71.0 % [facility] M[facility] Neutrophil Absolute 3.24 1.50 - 6.30 [...] Gran Absolute 0.01 0.00 - 0.05 x10(3)/mcL [facility] TIAGOENNIUM Blood specimen (specimen) 03/06/2014 9:39 AM EDT 03/06/2014 9:47 AM EDT L Karthik Barlow MD HEMATOLOGY ORDERABLE S [facility] * QuantiFERON-TB Gold (03/06/2014 9:39 AM EDT) Pathologist [facility] Quantiferon-TB Gold Negative Negative [facility] Comment: Nil (IU/mL)=0.03 TB Ag minus [...] Lab L Karthik Barlow MD CHEMISTRY ORDERABLES [facility] * High Sensitivity CRP (03/06/2014 9:39 [...] Primary documented in this encounter Care Teams Chemical Production Machine Operator Relationship Specialty Start Date End Date More Naylor MD [address] [place] [address] PCP - General 10/01/11 02/13/21 documented as of this encounter
--- OUTSIDE RECORDS SUMMARY | 2024-07-27 13:41 | XMS_ITS | Encounter Summary ---
Author Organization [facility] Address [facility] [place] [address] Care Team Providers Care Granulator Name Role Phone Maximilian Fall MD Primary Care Provider [phone] Encounter Details Date Type Department Care Team (Late st Contact Info) Description 03/02/2012 External [place] [address] Dion Barlow MD [facility] [place] [address] Social History Tobacco Use Types Packs/Day Years [...] 9:00 AM EDT Office [place] [phone] Dion Barlow MD [facility] [place] [address] 09/01/2024 9:40 AM EDT Office Visit Cardiology at [address] [place] [phone] Franky Shaver MD [facility] [place] [address] 09/01/2024 11:20 AM EDT Office Visit Dermatology at [facility] [address] [place] [address] Gómez Mercer MD [facility] DR [place] [address] 09/21/2024 2:45 PM EDT Office Visit [facility] at [facility] [place] [address] Trung Hoyos MD [facility] [place] [address] documented as of this encounter Procedures Procedure Name Priority Date/Time Associated Diagnosis Comments EXTERNAL LAB RESULTS Routine 03/02/2012 documented in this encounter Results * External Lab Results (03/02/2012) Stool specimen (specimen) 03/02/2012 L Karthik Barlow MD CHEMISTRY ORDERABLES documented in this encounter Visit Diagnoses Not on filedocumented in this encounter Care Teams Granulator Relationship Specialty Start Date End Date Maximilian Fall MD [facility] [address] [facility] [place] [address] PCP - General 10/01/11 02/13/21 documented as of this encounter
--- OUTSIDE RECORDS SUMMARY | 2024-07-27 13:41 | XMS_ITS | Encounter Summary ---
Author Organization [facility] [place] [address] Care Team Providers Care Licensed Practical Nurse Name Role Phone Maximilian Fall MD Primary Care Provider [phone] Encounter Details Date Type Department Care Team (Late st Contact Info) Description 09/30/2012 Telephone [place] [phone] Lilliana Reece RN Social History Tobacco Use [...] EDT Office [place] [address] Dion Barlow MD [facility] [place] [address] 09/01/2024 9:40 AM EDT Office Visit Cardiology at [address] [place] [address] Franky Shaver MD [facility] [place] [address] 09/01/2024 11:20 AM EDT Office Visit Dermatology at [facility] [address] [place] [address] Gómez Mercer MD [facility] [place] [address] 09/21/2024 2:45 PM EDT Office Visit [place] [address] Trung Hoyos MD [facility] [place] [address] documented as of this encounter Visit Diagnoses Not on filedocumented in this encounter Care Teams Licensed Practical Nurse Relationship Specialty Start Date End Date Maximilian Fall MD [address] [facility] 1 [place] [address] PCP - General 10/01/11 02/13/21 documented as of this encounter
--- OUTSIDE RECORDS SUMMARY | 2024-07-27 13:41 | XMS_ITS | Encounter Summary ---
Author Organization [facility] Address [facility] [place] [address] Care Team Providers Care Snack Bar Cook Name Role Phone Maximilian Fall MD Primary Care Provider [phone] Reason for Visit * Reason Comments Research Merit UC screening v isit Encounter Details Date Type Department Care Team (Late st Contact Info) Description 03/02/2012 7:30 AM EDT Office Visit [place] [address] Mica Gore, [facility] [place] [place] [address] Ulcerative colitis (Primary Dx) Social History Tobacco [...] 9:00 AM EDT Office Visit [place] [address] Dion Barlow MD [facility] [place] [address] 09/01/2024 9:40 AM EDT Office Visit Cardiology at [address] [place] [address] Franky Shaver MD [facility] [place] [address] 09/01/2024 11:20 AM EDT Office Visit Dermatology at [facility] [address] [place] [address] Gómez Mercer MD [facility] DR EDD[place] [address] 09/21/2024 2:45 PM EDT Office Visit [facility] [place] [address] Trung Hoyos MD [facility] [place] [address] documented as of this encounter Visit Diagnoses Diagnosis Ulcerative colitis- Primary Ulcerative colitis, unspecified documented in this encounter Care Teams Snack Bar Cook Relationship Specialty Start Date End Date Maximilian Fall MD [address] [place] [address] PCP - General 10/01/11 02/13/21 documented as of this encounter
--- OUTSIDE RECORDS SUMMARY | 2024-07-27 13:41 | XMS_ITS | Encounter Summary ---
Author Organization [facility] Address [facility] [place] [address] Care Team Providers Care Biztalk Consultant Name Role Phone More Naylor MD Primary Care Provider [phone] Reason for Visit * Reason Comments Follow-up Encounter Details Date Type Department Care Team (Late st Contact Info) Description 09/20/2012 10:00 AM EDT Follow-Up [place] [address] Dion Barlow MD [facility] [place] [address] Ulcerative colitis (Primary Dx); Dyspepsia; UC (ulcerative [...] has left-sided ulcerative colitis with persistently active ooti-ai-ofzgqhzl symptoms andmildly active disease endoscopically. His colitis [...] MORE NAYLOR MD [address] [facility] [address] documented in this encounter Plan of Treatment Upcoming Encounters Date Type Department Care Team (Late st Contact Info) Description 08/15/2024 9:00 AM EDT Office Visit [place] [address] Dion Barlow MD [facility] [place] [address] 09/01/2024 9:40 AM EDT Office Visit Cardiology at [address] [address] Franky Shaver MD [facility] [address] 09/01/2024 11:20 AM EDT Office Visit Dermatology at [address] [address] Gómez Mercer MD [facility] [place] [address] 09/21/2024 2:45 PM EDT Office Visit [facility] [place] [phone] Trung Hoyos MD [facility] [place] [address] documented as of this encounter Procedures Procedure [...] MD HEMATOLOGY ORDERABLE S Performing Organization Address [facility] Co de Phone Number DURGA FREDERICK * (ABNORMAL) TSH (09/20/2012 11:17 AM EDT) Thyroid Stimulating Hormone 4.77(H) 0.27 - 4.20 mcIU/mL DURGA COLBERTIUM Blood specimen (specimen) 09/20/2012 11:17 AM EDT 09/20/2012 11:23 AM EDT Narrative Resulting Agency Comment Spec In Lab L Karthik Barlow MD CHEMISTRY ORDERABLES Performing Organization Address [facility] Phone Number DURGA COLBERTIUM * Lipase (09/20/2012 11:17 AM EDT) Lipase 32 0 - 60 unit/L DURGA COLBERTIUM Blood specimen (specimen) 09/20/2012 11:17 AM EDT 09/20/2012 11:23 AM EDT Narrative Resulting Agency Comment Spec In Lab L Karthik Barlow MD CHEMISTRY ORDERABLES Performing Organization Address [facility] Phone Number DURGA COLBERTIUM * High Sensitivity CRP (09/20/2012 11:17 AM EDT) C-Reactive Protein High Sensitivity 3.7 mg/L [facility]IUM Comment: Interpretations: 1) For cardiac risk assessment, [...] Lab L Karthik Barlow MD CHEMISTRY ORDERABLES [facility] * (ABNORMAL) CMP w/fasting Glucose (09/20/2012 11:17 AM EDT) Glucose Fasting 110(H) 65 - 99 mg/dL [facility] Comment: ?Fasting* Glucose Interpretive Criteria Normal [...] of Diabetes Mellitus, Position Statement from the [place] [employer]. ??Diabetes Care, Volume 33, Supplement 1, Nov 2009 Blood Urea Nitrogen 13 10 - 20 mg/dL CERNER MILLENNIUM Creatinine 0.81 0.80 - 1.50 mg/dL CERNER MILLENNIUM Comment: Please note that the pediatric reference intervals supplied above were not validated at [facility]. Results from pediatric [...] unspecified documented in this encounter Care Teams Biztalk Consultant Relationship Specialty Start Date End Date More Naylor MD [address] [place] [address] PCP - General 10/01/11 02/13/21 documented as of this encounter
--- OUTSIDE RECORDS SUMMARY | 2024-07-27 13:41 | XMS_ITS | Encounter Summary ---
Author Organization [facility] Address [facility] [place] [address] Care Team Providers Care Layboy Tender Name Role Phone Maximilian Fall MD Primary Care Provider [phone] Encounter Details Date Type Department Care Team (Late st Contact Info) Description 03/16/2012 Orders [place] [phone] Dion Barlow MD [facility] [place] [address] Ulcerative colitis (Primary Dx) Social History Tobacco [...] 9:00 AM EDT Office [place] [address] Dion Barlow MD [facility] [place] [address] 09/01/2024 9:40 AM EDT Office Visit Cardiology at [address] [place] [address] Franky Shaver MD [facility] [place] [address] 09/01/2024 11:20 AM EDT Office Visit Dermatology at [facility] [address] [place] [address] Gómez Mercer MD [facility] DR EDDIE [place] [address] 09/21/2024 2:45 PM EDT Office Visit [place] [address] Trung Hoyos MD [facility] [place] [address] documented as of this encounter Visit Diagnoses Diagnosis Ulcerative colitis- Primary Ulcerative colitis, unspecified documented in this encounter Care Teams Layboy Tender Relationship Specialty Start Date End Date Maximilian Fall MD [address] [facility] 1 [place] [address] PCP - General 10/01/11 02/13/21 documented as of this encounter
--- OUTSIDE RECORDS SUMMARY | 2024-07-27 13:41 | XMS_ITS | Encounter Summary ---
Author Organization [facility] Address [facility] [place] [address] Care Team Providers Care Loading Unit Operator Powder Charging Name Role Phone Maximilian Fall MD Primary Care Provider [phone] Encounter Details Date Type Department Care Team (Latest Contact Info) Description 07/13/2014 1:25 PM EDT - 07/13/2014 4:30 PM EDT Hospital Encounter [place] [address] Dion Osullivan MD [facility] [place] [address] Discharge Disposition: Home Social History Tobacco Use [...] - 07/13/2014 4:14 PM EDT Please call [phone], before 5pm with problems, questions or concerns, after 5pm call the Hospital at [phone] and ask to speak to the Metal Sprayer Protective Coating telephone exchange operator and the pouncing lathe operator will contactthat person for you. Discharge [...] through Care Everywhere. * COLONOSCOPY : POSTOP (SYRIAN) documented in this encounter Medications at Time [...] Operative Note Patient Name: Naya Rodriguez : [id number] MR#: [id number] Case Date: 07/13/2014 Surgeon: Surgeon(s) and Role: [...] AM EDT Office Visit [place] [address] Dion Osullivan MD [facility] [place] [address] 09/01/2024 9:40 AM EDT Office Visit Cardiology at [address] [place] [address] Franky Shaver MD [facility] [place] [address] 09/01/2024 11:20 AM EDT Office Visit Dermatology at [facility] [address] [place] [address] Gómez Mercer MD [facility] [place] [address] 09/21/2024 2:45 PM EDT Office Visit [facility] [place] [address] Trung Hoyos MD [facility] [place] [address] documented as of this encounter Procedures Procedure [...] (07/13/2014 3:58 PM EDT) Final Diagnosis ? [facility] ? Provider: ?? Dion OSULLIVAN ?Pt. Name: ?? NAYA RODRIGUEZ ? Acc #: ?[id number] ?Pt. ? Col Date: ?? 07/13/2014 ? [...] - Mucosal biopsies - R colon ? [facility] ? Provider: ?? Dion OSULLIVAN ?Pt. Name: ?? NAYA RODRIGUEZ ? Acc #: ?[id number] ?Pt. ? Col Date: ?? 07/13/2014 ? [...] Osullivan MD PATHOLOGY/CYTOLOGY O CEE [place] [address] * Specimen to Pathology (surgical or derm) (07/13/2014 3:58 PM EDT) AP Specimen 07/13/2014 3:58 PM EDT 07/13/2014 3:58 PM EDT Narrative JO-ANNGIOVANNI COLBERTIUM - 07/13/2014 3:58 PM EDT Specimen requisition ordered. ??Separate Pathology report to follow L Karthik Osullivan MD PATHOLOGY/CYTOLOGY O CEE Performing Organization Address [facility] Co de Phone Number DURGA FREDERICK * Specimen to Pathology (surgical or derm) (07/13/2014 3:58 PM EDT) AP Specimen 07/13/2014 3:58 PM EDT 07/13/2014 3:58 PM EDT Narrative DURGA COLBERTIUM - 07/13/2014 3:58 PM EDT Specimen requisition ordered. ??Separate Pathology report to follow L Karthik Osullivan MD PATHOLOGY/CYTOLOGY O CEE Performing Organization Address City/[facility]/ZIP Co de Phone Number DRUGA FREDERICK * Specimen to Pathology (surgical or derm) (07/13/2014 3:58 PM EDT) AP Specimen 07/13/2014 3:58 PM EDT 07/13/2014 3:58 PM EDT Narrative DURGA COLBERTIUM - 07/13/2014 3:58 PM EDT Specimen requisition ordered. ??Separate Pathology report to follow L Karthik Osullivan MD PATHOLOGY/CYTOLOGY O RDMELISSA DURGA FREDERICK * COLONOSCOPY (07/13/2014 2:51 PM EDT) Pathologist [facility] COLONOSCOPY [facility] Patient Name: Naya Rodriguez ? Procedure Date: 07/13/2014 2:51 PM ? Date of : 1950 ? Age: 64 ? Order #: [id number] ? Procedure: ? Colonoscopy Indications: ? Follow-up of left-sided chronic ? ulcerative colitis Providers: ? Davina Osullivan MD, Emily Quinn, ? RN, Luna Connors, RONY, Cam Ghosh ? Doug, Tire Assembler Referring MD: ?Maximilian Fall MD Medicines: [...] Glucose, POC 167 60 - 199 mg/dL [facility] Comment: Supplemental ranges: <140 mg/dL before meals <180 mg/dL all other times of the day Blood specimen (specimen) 07/13/2014 1:59 PM EDT 07/13/2014 1:59 PM EDT L Karthik Osullivan MD POINT OF CARE TEST O RDERABLES [facility] documented in this encounter Visit Diagnoses [...] uncomfortable) documented in this encounter Care Teams Loading Unit Operator Powder Charging Relationship Specialty Start Date End Date Maximilian Fall MD [address] [place] [address] PCP - General 10/01/11 02/13/21 documented as of this encounter
--- OUTSIDE RECORDS SUMMARY | 2024-07-27 13:41 | XMS_ITS | Encounter Summary ---
[place] [address] Care Team Providers Care Nurse Researcher Name Role Phone Maximilian Fall MD Primary Care Provider [phone] Encounter Details Date Type Department Care Team (Late st Contact Info) Description 09/30/2012 Telephone [place] [address] Lilliana Reece RN Social History Tobacco Use [...] louis ----- Message ----- From: Lab In [facility] Sent: 09/20/2012 11:34 AM To: Marcelle [...] 9:00 AM EDT Office [place] [address] Dion Barlow MD [facility] [place] [address] 09/01/2024 9:40 AM EDT Office Visit Cardiology at [address] [place] [address] Franky Shaver MD [facility] [place] [address] 09/01/2024 11:20 AM EDT Office Visit Dermatology at [facility] [address] [place] [address] Gómez Mercer MD [facility] [place] [address] 09/21/2024 2:45 PM EDT Office Visit [place] [address] Trung Hoyos MD [facility] [place] [address] documented as of this encounter Visit Diagnoses Not on filedocumented in this encounter Care Teams Nurse Researcher Relationship Specialty Start Date End Date Maximilian Fall MD [address] [place] [address] PCP - General 10/01/11 02/13/21 documented as of this encounter
--- OUTSIDE RECORDS SUMMARY | 2024-07-27 13:41 | XMS_ITS | Encounter Summary ---
Author Organization [facility] Address [facility] [place] [address] Care Team Providers Care Msw Name Role Phone More Naylor MD Primary Care Provider [phone] Reason for Visit * Reason Comments Ulcerative Colitis Encounter Details Date Type Department Care Team (Late st Contact Info) Description 04/21/2012 1:30 PM EDT Follow-[place] [address] Dion Barlow MD [facility] [place] [address] Ulcerative colitis (Primary Dx) Discharge Disposition: Home [...] Ulcerative colitis Colonoscopy 04/08/10 ([facility] [...] has left-sided ulcerative colitis with persistently active jsco-wj-pasftezf symptoms andmildly active disease endoscopically. He failed [...] NAYLOR MD [address] [facility] [address] documented in this encounter Plan of Treatment Upcoming Encounters Date Type Department Care Team (Late st Contact Info) Description 08/15/2024 9:00 AM EDT Office Visit [place] [address] Dion Barlow MD [facility] [place] [address] 09/01/2024 9:40 AM EDT Office Visit Cardiology at [address] [place] [address] Franky Shaver MD [facility] [place] [address] 09/01/2024 11:20 AM EDT Office Visit Dermatology at [facility] [address] [place] [address] Gómez Mercer MD [facility] [place] [address] 09/21/2024 2:45 PM EDT Office Visit [facility] [place] [address] Trung Hoyos MD [facility] [address] documented as of this encounter Visit Diagnoses Diagnosis Ulcerative colitis- Primary Ulcerative colitis, unspecified documented in this encounter Care Teams Msw Relationship Specialty Start Date End Date More Naylor MD [address] [facility] 1 [place] [address] PCP - General 10/01/11 02/13/21 documented as of this encounter
--- OUTSIDE RECORDS SUMMARY | 2024-07-27 13:41 | XMS_ITS | Encounter Summary ---
Author Organization [facility] [place] [place] [address] Care Team Providers Care Sheet Pile Driver Operator Name Role Phone Maximilian Fall MD Primary Care Provider [phone] Reason for Visit * Reason Onset Date Comments Medication Refill 11/22/2012 Encounter Details Date Type Department Care Team (Late st Contact Info) Description 11/22/2012 Refill [place] [address] Dion Barlow MD [facility] [place] [address] Ulcerative colitis (Primary Dx) Social History Tobacco [...] 9:00 AM EDT Office [place] [address] Dion Barlow MD [facility] [place] [address] 09/01/2024 9:40 AM EDT Office Visit Cardiology at [address] [place] [address] Franky Shaver MD [facility] [place] [address] 09/01/2024 11:20 AM EDT Office Visit Dermatology at [facility] [address] [place] [address] Gómez Mercer MD [facility] DR EDD[place] [address] 09/21/2024 2:45 PM EDT Office Visit [facility] and Spine Center at [facility] [place] [address] Trung Hoyos MD [facility] [address] documented as of this encounter Visit Diagnoses Diagnosis Ulcerative colitis- Primary Ulcerative colitis, unspecified documented in this encounter Care Teams Sheet Pile Driver Operator Relationship Specialty Start Date End Date Maximilian Fall MD [address] [facility] 1 [place] [address] PCP - General 10/01/11 02/13/21 documented as of this encounter
--- OUTSIDE RECORDS SUMMARY | 2024-07-27 13:41 | XMS_ITS | Encounter Summary ---
Author Organization [facility] Address [facility] [place] [address] Care Team Providers Care Leasing Machine Tender Name Role Phone Maximilian Fall MD Primary Care Provider [phone] Encounter Details Date Type Department Care Team (Latest Contact Info) Description 03/16/2012 12:32 PM EDT - 03/16/2012 3:00 PM EDT Hospital En[place] [address] Enrico Tellez MD [facility] [place] [address] Discharge Disposition: Home Social History Tobacco Use [...] please contact your M. D. Please call [phone] BEFORE 5PM with any questions or concerns, AFTER 5PM call [phone] andask to speak to the Business Continuity Global Director electronic data processing auditor. * Patient Instructions* Enrico Tellez MD - 03/16/2012 1:27 PM EDT Please see Recommendations in the Provation procedure report which is documented in the procedural note in E-DH. * Attachments The following attachments cannot be sent through Care Everywhere. * SIGMOIDOSCOPY: WHAT TO EXPECT AT HOME (SPANISH) documented in this encounter Medications at [...] EDT Office [place] [address] Dion Barlow MD [facility] [place] [address] 09/01/2024 9:40 AM EDT Office Visit Cardiology at [address] [place] [address] Franky Shaver MD [facility] [place] [address] 09/01/2024 11:20 AM EDT Office Visit Dermatology at [facility] [address] [place] [address] Gómez Mercer MD [facility] [place] [address] 09/21/2024 2:45 PM EDT Office Visit [facility] [place] [address] Trung Hoyos MD [facility] [address] documented as of this encounter Procedures Procedure Name Priority Date/Time Associated Diagnosis Comments SURGICAL PATHOLOGY REPORT Routine 03/16/2012 4:52 PM EDT SPECIMEN TO PATHOLOGY Routine 03/16/2012 2:09 PM EDT FLEXIBLE SIGMOIDOSCOPY (WRVU 0.84) 03/16/2012 1:27 PM EDT study patient POCT GLUCOSE Routine 03/16/2012 1:16 PM EDT documented in this encounter Results * SURGICAL PATHOLOGY REPORT (03/16/2012 4:52 PM EDT) Surgical Pathology Report ? [facility] ? Provider: ?? ENRICO TELLEZ ?Pt. Name: ?? SHANTNAYA ? Acc #: ?[id number] ?Pt. ? Col Date: ?? 03/16/2012 ? [...] PATHOLOGY/CYTOLOGY O CEE Performing Organization Address [facility] de Phone Number DURGA FREDERICK * Specimen to Pathology (surgical or derm) (03/16/2012 2:09 PM EDT) AP Specimen 03/16/2012 2:09 PM EDT 03/16/2012 2:09 PM EDT Narrative DURGA TIAGOENNIUM - 03/16/2012 2:09 PM EDT Specimen requisition ordered. ??Separate Pathology report to follow Enrico Tellez MD PATHOLOGY/CYTOLOGY O CEE Performing Organization Address [facility] de Phone Number DURGA FREDERICK [...] CARE TEST O CEE Performing Organization Address [facility] de Phone Number DURGA FREDERICK documented [...] Routine 1334 (Given - Provid er: April Arcihbald RN)1337 (Given - Provider: April Archibald RN)1348 (Given - Provider: April Archibald RN) documented in this encounter Care Teams Leasing Machine Tender Relationship Specialty Start Date End Date Maximilian Fall MD [address] [place] [address] PCP - General 10/01/11 02/13/21 documented as of this encounter
--- OUTSIDE RECORDS SUMMARY | 2024-07-27 13:41 | XMS_ITS | Encounter Summary ---
Author Organization [facility] Address [facility] [place] [address] Care Team Providers Care Extension Agent Name Role Phone Maximilian Fall MD Primary Care Provider [phone] Encounter Details Date Type Department Care Team (Late st Contact Info) Description 03/02/2012 External Results [place] [address] Dion Barlow MD [facility] [place] [address] Social History Tobacco Use Types Packs/Day Years [...] 9:00 AM EDT Office [place] [phone] Dion Barlow MD [facility] [place] [address] 09/01/2024 9:40 AM EDT Office Visit Cardiology at [address] [place] [phone] Franky Shaver MD [facility] [place] [address] 09/01/2024 11:20 AM EDT Office Visit Dermatology at [facility] [address] [place] [address] Gómez Mercer MD [facility] DR EDDIE [place] [address] 09/21/2024 2:45 PM EDT Office Visit Pain and Spine Center at [facility] [place] [phone] Trung Hoyos MD [facility] [place] [address] documented as of this encounter Procedures Procedure Name Priority Date/Time Associated Diagnosis Comments EXTERNAL LAB RESULTS Routine 03/04/2012 documented in this encounter Results * External Lab Results (03/04/2012) Blood specimen (specimen) L Karthik Barlow MD CHEMISTRY ORDERABLES documented in this encounter Visit Diagnoses Not on filedocumented in this encounter Care Teams Extension Agent Relationship Specialty Start Date End Date Maximilian Fall MD [facility] [address] [facility] [address] [place] [address] PCP - General 10/01/11 02/13/21 documented as of this encounter
--- OUTSIDE RECORDS SUMMARY | 2024-07-27 13:41 | XMS_ITS | Encounter Summary ---
Author Organization [facility] Address [facility] [place] [address] Care Team Providers Care Business Process Associate Name Role Phone More Naylor MD Primary Care Provider [phone] Reason for Visit * Reason Comments Follow-up Encounter Details Date Type Department Care Team (Late st Contact Info) Description 11/01/2013 2:00 PM EST [place] [address] Dion Barlow MD [facility] [place] [address] Ulcerative colitis (Primary Dx) Discharge Disposition: Home [...] ??? Ulcerative colitis Colonoscopy 04/08/10 (Dr. Gomes [facility]) - inflammation only within the rectum and sigmoid; extent of the exam was to the hepatic flexure; biopsies proximal to the sigmoid nl Repeat exam 11/27/11 ([facility] mildly active colitis [...] has left-sided ulcerative colitis with persistently active ofzm-[id number] symptom - now worse off of his [...] CC: MORE NAYLOR MD [address] [place] [address] documented in this encounter Plan of Treatment Upcoming Encounters Date Type Department Care Team (Late st Contact Info) Description 08/15/2024 9:00 AM EDT Office [place] [address] Dion Barlow MD [facility] [place] [address] 09/01/2024 9:40 AM EDT Office Visit Cardiology at [address] [place] [phone] Franky Shaver MD [facility] [place] [address] 09/01/2024 11:20 AM EDT Office Visit Dermatology at [facility] [address] [place] [address] Gómez Mercer MD [facility] DR [place] [address] 09/21/2024 2:45 PM EDT Office Visit Pain and Spine Center at [facility] [place] [phone] Trung Hoyos MD [facility] [place] [address] documented as of this encounter Procedures Procedure [...] Barlow MD HEMATOLOGY ORDERABLE S [facility] * (ABNORMAL) Comprehensive metabolic panel (non-fasting) (11/01/2013 3:39 PM EST) Glucose 110 60 - 199 mg/dL [facility]ER MILLENNIUM Comment:Diabetes: >=200 mg/d L plus symptoms Blood Urea Nitrogen 11 10 - 20 mg/dL [facility] Creatinine 0.91 0.80 - 1.50 mg/dL [facility]NI[facility] Comment: Please note that the pediatric reference intervals supplied above were not validated at [facility]. Results from pediatric [...] unspecified documented in this encounter Care Teams Business Process Associate Relationship Specialty Start Date End Date More Naylor MD [address] [place] [address] PCP - General 10/01/11 02/13/21 documented as of this encounter
--- OUTSIDE RECORDS SUMMARY | 2024-07-27 13:41 | XMS_ITS | Encounter Summary ---
Author Organization [facility] Address [facility] [place] [address] Care Team Providers Care Cloth Bleaching Range Operator Chief Name Role Phone Maximilian Fall MD Primary Care Provider [phone] Encounter Details Date Type Department Care Team (Latest Contact Info) Description 11/27/2011 11:49 AM EST - 11/27/2011 2:45 PM EST Hospital Encounter [place] [address] Dion Osullivan MD [facility] [place]STR[place] [address] Discharge Disposition: Home Social History Tobacco Use [...] - 11/27/2011 2:37 PM EST Please call [phone], before 5pm with problems, questions or concerns, after 5pm call the Hospital at [phone] and ask to speak to the Engineered Wood Designer pension agent and the swing saw operator will contactthat person for you. Discharge instructions reviewed with patient who expresses understanding. * Patient Instructions* Dion Osullivan MD - 11/27/2011 1:07 PM EST Please see Recommendations in the Provation procedure report which is documented in the procedural note in E-DH. * Attachments The following attachments cannot be sent through Care Everywhere. * COLONOSCOPY: WHAT TO EXPECT AT HOME ([place]) documented in this encounter Medications at Time [...] Osullivan MD - 11/27/2011 1:06 PM EST [facility] Operative Note Patient Name: Naya Rodriguez : [id number] MR#: [id number] Case Date: 11/27/2011 Surgeon: Surgeon(s) and Role: * Dion OSULLIVAN MD - Primary Please see the Provation procedure report in the Procedures tab in eDH. documented in this encounter Plan of Treatment Upcoming Encounters Date Type Department Care Team (Late st Contact Info) Description 08/15/2024 9:00 AM EDT Office [place] [phone] Dion Osullivan MD [facility] DR GASTRO[place] [address] 09/01/2024 9:40 AM EDT Office Visit Cardiology at [address] [address] Franky Shaver MD [facility] [place] [address] 09/01/2024 11:20 AM EDT Office Visit Dermatology at [address] [phone] Gómez Mercer MD [facility] [address] 09/21/2024 2:45 PM EDT Office Visit [place] [phone] Trung Hoyos MD [facility] PAIN [place] [address] documented as of this encounter Procedures Procedure [...] 4:38 PM EST) Surgical Pathology Report ? [facility] ? Provider: ?? Dion OSULLIVAN ?Pt. Name: ?? SHANTNAYA ? Acc #: ?[id number] ?Pt. ? Col Date: ?? 11/27/2011 ?/Sex: [...] Stephen, rubbery mucosal polyp, the larger ? [facility] ? Provider: ?? Dion OSULLIVAN ?Pt. Name: ?? NAYA RODRIGUEZ ? Acc #: ?[id number] ?Pt. ? Col Date: ?? 11/27/2011 ?/Sex: [...] CEE Performing Organization Address City/[facility] Co de Phone Number [facility] * Specimen to Pathology (surgical or derm) (11/27/2011 1:53 PM EST) AP Specimen 11/27/2011 1:53 PM EST 11/27/2011 1:53 PM EST Narrative [facility] - 11/27/2011 1:53 PM EST Specimen requisition ordered. ??Separate Pathology report to follow L Karthik Osullivan MD PATHOLOGY/CYTOLOGY O CEE Performing Organization Address City/[facility] Co de Phone Number [facility] * Specimen to Pathology (surgical or derm) (11/27/2011 1:53 PM EST) AP Specimen 11/27/2011 1:53 PM EST 11/27/2011 1:53 PM EST Narrative [facility] - 11/27/2011 1:53 PM EST Specimen requisition ordered. ??Separate Pathology report to follow L Karthik Osullivan MD PATHOLOGY/CYTOLOGY O CEE Performing Organization Address City/[facility] Co de Phone Number [facility] * COLONOSCOPY (11/27/2011 1:01 PM EST) COLONOSCOPY [facility] Endoscopy Patient Name: Naya Rodriguez ? Procedure Date: 11/27/2011 01:01:31 PM ? Date of : 1950 ? Age: 61 ? Procedure: ? Colonoscopy Indications: ? Follow-up of left-sided chronic ? ulcerative colitis Providers: ? L Karthik Osullivan MD, Tyron Cee, ? RN, Qing López, Cook Dinner Referring MD: ?Maximilian Fall MD Medicines: ? [...] time) documented in this encounter Care Teams Cloth Bleaching Range Operator Chief Relationship Specialty Start Date End Date Maximilian Fall MD [address] [place] [address] PCP - General 10/01/11 02/13/21 documented as of this encounter
--- OUTSIDE RECORDS SUMMARY | 2024-07-27 13:41 | XMS_ITS | Encounter Summary ---
Author Organization Replaced By [facility] Address [facility] [place] [address] Care Team Providers Care Electrician Maintenance Name Role Phone Maximilian Fall MD Primary Care Provider Encounter Details Date Type Department Care Team (Late st Contact Info) Description 03/02/2012 Orders Only [place] [phone] Dion Barlow MD [facility] [place] [address] Exam for clinical research (Primary Dx) Social [...] AM EDT Office Visit [place] [address] Dion Barlow MD [facility] [place] [address] 09/01/2024 9:40 AM EDT Office Visit Cardiology at [address] [place] [address] Franky Shaver MD [facility] [place] [address] 09/01/2024 11:20 AM EDT Office Visit Dermatology at [facility] [address] [place] [address] Gómez Mercer MD [facility] DR EDD[place] [address] 09/21/2024 2:45 PM EDT Office Visit Pain and Spine Center at [facility] [place] [phone] Trung Hoyos MD [facility] [place] [address] documented as of this encounter Results * [...] trial documented in this encounter Care Teams Electrician Maintenance Relationship Specialty Start Date End Date Maximilian Fall MD [address] [place] [address] PCP - General 10/01/11 02/13/21 documented as of this encounter
--- OUTSIDE RECORDS SUMMARY | 2024-07-27 13:41 | XMS_ITS | Encounter Summary ---
Author Organization [facility] Address [facility] [place] [address] Care Team Providers Care Business Control Specialist Name Role Phone More Naylor MD Primary Care Provider [phone] Reason for Visit * Reason Comments Follow-up Encounter Details Date Type Department Care Team (Late st Contact Info) Description 01/28/2012 3:00 PM EST Follow-[place] [address] Dion Barlow MD [facility] [place] [address] Ulcerative colitis (Primary Dx) Discharge Disposition: Home [...] ??? Ulcerative colitis Colonoscopy 04/08/10 (Dr. Gomes [place] [...] first time since his colonoscopy in early [facility]. At that time, he had a [...] sooner of symptoms worsen. Davina Barlow MD Supervisor Salvageloading unit operator crimping Section of Gastroenterology [place] [address] CC: MORE NAYLOR MD [address] [facility] [address] documented in this encounter Plan of Treatment Upcoming Encounters Date Type Department Care Team (Late st Contact Info) Description 08/15/2024 9:00 AM EDT Office [place] [address] Dion Barlow MD [facility] [place] [address] 09/01/2024 9:40 AM EDT Office Visit Cardiology at [address] [phone] Franky Shaver MD [facility] [place] [address] 09/01/2024 11:20 AM EDT Office Visit Dermatology at [address] [phone] Gómez Mercer MD [facility] [address] 09/21/2024 2:45 PM EDT Office Visit [place] [address] Trung Hoyos MD [facility] [place] [address] documented as of this encounter Visit Diagnoses Diagnosis Ulcerative colitis- Primary Ulcerative colitis, unspecified documented in this encounter Care Teams Business Control Specialist Relationship Specialty Start Date End Date More Naylor MD [address] [place] [address] PCP - General 10/01/11 02/13/21 documented as of this encounter
--- OUTSIDE RECORDS SUMMARY | 2024-07-27 13:41 | XMS_ITS | Encounter Summary ---
Author Organization [facility] Address [facility] [place] [address] Care Team Providers Care Top Loader Name Role Phone Maximilian Fall MD Primary Care Provider [phone] Encounter Details Date Type Department Care Team (Late st Contact Info) Description 07/13/2014 2:30 PM EDT - 07/13/2014 3:30 PM EDT [place] [address] Dion Osullivan MD [facility] [place] [address] COLONOSCOPY, DIAGNOSTIC (WRVU 3.26) Social History Tobacco [...] - 07/13/2014 4:14 PM EDT Please call [phone], before 5pm with problems, questions or concerns, after 5pm call the Hospital at [phone] and ask to speak to the French Teacher production clerk and the stacker operator will contactthat person for you. Discharge [...] through Care Everywhere. * COLONOSCOPY : POSTOP (HUNGARIAN) documented in this encounter Medications at [...] Osullivan MD - 07/13/2014 3:57 PM EDT [facility] Operative Note Patient Name: Naya Rodriguez : [id number] MR#: [id number] Case Date: 07/13/2014 Surgeon: Surgeon(s) and Role: [...] EDT Office [place] [address] Dion Osullivan MD [facility] [place] [address] 09/01/2024 9:40 AM EDT Office Visit Cardiology at [address] [place] [address] Franky Shaver MD [facility] [place] [address] 09/01/2024 11:20 AM EDT Office Visit Dermatology at [facility] [address] [place] [address] Gómez Mercer MD [facility] [place] [address] 09/21/2024 2:45 PM EDT Office Visit [place] [address] Trung Hoyos MD [facility] [place] [address] documented as of this encounter Procedures Procedure [...] (07/13/2014 3:58 PM EDT) Final Diagnosis ? [facility] ? Provider: ?? Dion OSULLIVAN ?Pt. Name: ?? NAYA RODRIGUEZ ? Acc #: ?[id number] ?Pt. ? Col Date: ?? 07/13/2014 ? [...] - Mucosal biopsies - R colon ? [facility] ? Provider: ?? Dion OSULLIVAN ?Pt. Name: ?? NAYA RODRIGUEZ ? Acc #: ?[id number] ?Pt. ? Col Date: ?? 07/13/2014 ? [...] MD PATHOLOGY/CYTOLOGY O RDMELISSA Performing Organization Address City/[facility]/ZIP Co de Phone Number [place]GA [place] [address] * Specimen to Pathology (surgical or derm) (07/13/2014 3:58 PM EDT) AP Specimen 07/13/2014 3:58 PM EDT 07/13/2014 3:58 PM EDT Narrative JO-ANNGIOVANNI COLBERTIUM - 07/13/2014 3:58 PM EDT Specimen requisition ordered. ??Separate Pathology report to follow L Karthik Osullivan MD PATHOLOGY/CYTOLOGY O RDMELISSA Performing Organization Address [facility] Co de Phone Number [facility] * Specimen to Pathology (surgical or derm) (07/13/2014 3:58 PM EDT) AP Specimen 07/13/2014 3:58 PM EDT 07/13/2014 3:58 PM EDT Narrative JO-ANNGIOVANNI COLBERTIUM - 07/13/2014 3:58 PM EDT Specimen requisition ordered. ??Separate Pathology report to follow L Karthik Osullivan MD PATHOLOGY/CYTOLOGY O CEE Performing Organization Address [facility] Co de Phone Number D[facility] * Specimen to Pathology (surgical or derm) (07/13/2014 3:58 PM EDT) AP Specimen 07/13/2014 3:58 PM EDT 07/13/2014 3:58 PM EDT Narrative DURGA COLBERTIUM - 07/13/2014 3:58 PM EDT Specimen requisition ordered. ??Separate Pathology report to follow L Karthik Osullivan MD PATHOLOGY/CYTOLOGY O RDERAOMAR Performing Organization Address City/[facility] Co de Phone Number [facility] * COLONOSCOPY (07/13/2014 2:51 PM EDT) COLONOSCOPY [facility] Endoscopy Patient Name: Naya Rodriguez ? Procedure Date: 07/13/2014 2:51 PM ? Date of : 1950 ? Age: 64 ? Order #: [id number] ? Procedure: ? Colonoscopy Indications: ? Follow-up of left-sided chronic ? ulcerative colitis Providers: ? Davina Osullivan MD, Emily Quinn, ? RN, Luna Connors RN, Cam Ashley. ? Doug, Cath Lab Manager Referring MD: ?Maximilian Fall MD Medicines: [...] Glucose, POC 167 60 - 199 mg/dL [facility] Comment: Supplemental ranges: <140 mg/dL before meals <180 mg/dL all other times of the day Blood specimen (specimen) 07/13/2014 1:59 PM EDT 07/13/2014 1:59 PM EDT L Karthik Osullivan MD POINT OF CARE TEST O RDERABLES Performing Organization Address City/State/[facility] Co wi Phone Number [facility] documented in this encounter Visit [...] uncomfortable) documented in this encounter Care Teams Top Loader Relationship Specialty Start Date End Date Maximilian Fall MD [address] [place] [address] PCP - General 10/01/11 02/13/21 documented as of this encounter
--- OUTSIDE RECORDS SUMMARY | 2024-07-27 13:41 | XMS_ITS | Encounter Summary ---
Author Organization [facility] Address [facility] [place] [address] Care Team Providers Care Floor Cashier Name Role Phone Maximilian Fall MD Primary Care Provider [phone] Encounter Details Date Type Department Care Team (Late st Contact Info) Description 03/02/2012 External [place] [address] Dion Barlow MD [facility] [place] [address] Social History Tobacco Use Types Packs/Day Years [...] 9:00 AM EDT Office [place] [phone] Dion Barlow MD [facility] [place] [address] 09/01/2024 9:40 AM EDT Office Visit Cardiology at [address] [place] [phone] Franky Shaver MD [facility] [place] [address] 09/01/2024 11:20 AM EDT Office Visit Dermatology at [facility] [address] [place] [address] Gómez Mercer MD [facility] DR EDDIE [place] [address] 09/21/2024 2:45 PM EDT Office Visit Pain and Spine Center at [facility] [place] [address] Trung Hoyos MD [facility] [place] [address] documented as of this encounter Procedures Procedure Name Priority Date/Time Associated Diagnosis Comments EXTERNAL LAB RESULTS Routine 03/02/2012 documented in this encounter Results * External Lab Results (03/02/2012) Blood specimen (specimen) 03/02/2012 L Karthik Barlow MD CHEMISTRY ORDERABLES documented in this encounter Visit Diagnoses Not on filedocumented in this encounter Care Teams Floor Cashier Relationship Specialty Start Date End Date Maximilian Fall MD [facility] [address] [facility] [place] [address] PCP - General 10/01/11 02/13/21 documented as of this encounter
--- OUTSIDE RECORDS SUMMARY | 2024-07-27 13:41 | XMS_ITS | Encounter Summary ---
Author Organization [facility] Address [facility] [place] [address] Care Team Providers Care Aboriginal Education Worker Coordinator Name Role Phone Maximilian Fall MD Primary Care Provider [phone] Reason for Visit * Reason Onset Date Comments Research 02/20/2012 discuss [facility] Encounter Details Date Type Department Care Team (Late st Contact Info) Description 02/20/2012 Telephone [place] [address] Mica Gore, JAZMINE [facility] [place] [address] Research (discuss [facility]) Social History Tobacco [...] 9:00 AM EDT Office Visit [place] [phone] Dion Barlow MD [facility] [place] [address] 09/01/2024 9:40 AM EDT Office Visit Cardiology at [address] [address] Franky Shaver MD [facility] [place] [address] 09/01/2024 11:20 AM EDT Office Visit Dermatology at [facility] [address] [place] [address] Gómez Mercer MD [facility] DR EDDIE [place] [address] 09/21/2024 2:45 PM EDT Office Visit [facility] [place] [address] Trung Hoyos MD [facility] [place] [address] documented as of this encounter Visit Diagnoses Not on filedocumented in this encounter Care Teams Aboriginal Education Worker Coordinator Relationship Specialty Start Date End Date Maximilian Fall MD [address] [place] [address] PCP - General 10/01/11 02/13/21 documented as of this encounter
--- OUTSIDE RECORDS SUMMARY | 2024-07-27 13:41 | XMS_ITS | Encounter Summary ---
Author Organization [facility] Address [facility] [place] [address] Care Team Providers Care Rail Signal Worker Name Role Phone Maximilian Fall MD Primary Care Provider Reason for Visit * Reason Comments Follow-up Encounter Details Date Type Department Care Team (Late st Contact Info) Description 06/05/2014 9:30 AM EDT Follow-[place] [address] Marcelle Weinberg, JAZMINE [facility] [place] [address] Other ulcerative colitis (Primary Dx) Discharge Disposition: [...] ??? Ulcerative colitis Colonoscopy 04/08/10 (Dr. Gomes [facility]) - inflammation only within the rectum and sigmoid; extent of the exam was to the hepatic flexure; biopsies proximal to the sigmoid nl Repeat exam 11/27/11 ([facility]): mildly active colitis [...] 9:00 AM EDT Office Visit [place] [address] Dion Barlow MD [facility] [place] [address] 09/01/2024 9:40 AM EDT Office Visit Cardiology at [address] [phone] Franky Shaver MD [facility] [place] [address] 09/01/2024 11:20 AM EDT Office Visit Dermatology at [facility] [address] [place] [address] Gómez Mercer MD [facility] DR ED[place] [address] 09/21/2024 2:45 PM EDT Office Visit [facility] [place] [address] Trung Hoyos MD [facility] [place] [address] Scheduled Orders Name Type Priority Associated Diagnoses Orde r Schedule COLONOSCOPY Procedures Routine Other ulcerative colitis Ordered: 06/05/2014 documented as of this encounter Visit Diagnoses Diagnosis Other ulcerative colitis- Primary documented in this encounter Care Teams Rail Signal Worker Relationship Specialty Start Date End Date Maximilian Fall MD [address] [place] [address] PCP - General 10/01/11 02/13/21 documented as of this encounter
--- OUTSIDE RECORDS SUMMARY | 2024-07-27 13:41 | XMS_ITS | Encounter Summary ---
Author Organization Count Includes [facility] Address [facility] [place] [address] Care Team Providers Care Porcelain Slusher Name Role Phone Maximilian Fall MD Primary Care Provider [phone] Encounter Details Date Type Department Care Team (Late st Contact Info) Description 03/16/2012 2:30 PM EDT - 03/16/2012 3:30 PM EDT [place] [address] Enrico Tellez MD [facility] [place] [address] FLEXIBLE SIGMOIDOSCOPY (WRVU 0.84) Social History Tobacco [...] please contact your M. D. Please call [phone] BEFORE 5PM with any questions or concerns, AFTER 5PM call [phone] andask to speak to the Oracle Distribution Consultant round boner. * Patient Instructions* Enrico Tellez MD - 03/16/2012 1:27 PM EDT Please see Recommendations in the Provation procedure report which is documented in the procedural note in E-DH. * Attachments The following attachments cannot be sent through Care Everywhere. * SIGMOIDOSCOPY: WHAT TO EXPECT AT HOME (GEORGIAN) documented in this encounter Medications at Time [...] 9:00 AM EDT Office [place] [phone] Dion Barlow MD [facility] [address] 09/01/2024 9:40 AM EDT Office Visit Cardiology at [address] [place] [phone] Franky Shaver MD [facility] [place] [address] 09/01/2024 11:20 AM EDT Office Visit Dermatology at [place] [address] [place] [address] Gómez Mercer MD [facility] [place] [address] 09/21/2024 2:45 PM EDT Office Visit [place] [address] Trung Hoyos MD [facility] [place] [address] documented as of this encounter Procedures Procedure [...] Name: ?? NAYA RODRIGUEZ ? Acc #: ?[id number] ?Pt. ? Col Date: ?? 03/16/2012 ? [...] History/Diagnosis: ? Patient with mild proctitis JO-ANNGIOVANNI ORDÑOEZTADEOIUM 03/16/2012 4:52 PM EDT Enrico Tellez MD PATHOLOGY/CYTOLOGY O CEE Performing Organization Address [facility] de Phone Number DURGA FREDERICK * Specimen to Pathology (surgical or derm) (03/16/2012 2:09 PM EDT) AP Specimen 03/16/2012 2:09 PM EDT 03/16/2012 2:09 PM EDT Narrative DURGA TIAGOTADEOIUM - 03/16/2012 2:09 PM EDT Specimen requisition ordered. ??Separate Pathology report to follow Enrico Tellez MD PATHOLOGY/CYTOLOGY O CEE Performing Organization Address [facility] de Phone Number DURGA [...] CEE Performing Organization Address [facility] de Phone Number DURGA [...] 1334 (Given - Provid er: April A Penitas, RN)1337 (Given - Provider: April Archibald RN)1343 (Given - Provider: April Archibald RN) documented in this encounter Care Teams Porcelain Slusher Relationship Specialty Start Date End Date Maximilian Fall MD [address] [place] [address] PCP - General 10/01/11 02/13/21 documented as of this encounter
--- OUTSIDE RECORDS SUMMARY | 2024-07-27 13:41 | XMS_ITS | Encounter Summary ---
Author Organization [facility] Address [facility] [place] [address] Care Team Providers Care Health Commissioner Name Role Phone Maximilian Fall MD Primary Care Provider [phone] Encounter Details Date Type Department Care Team (Late st Contact Info) Description 10/01/2012 4:15 PM EST - 10/01/2012 4:45 PM EST [place] [address] Dion Osullivan MD [facility] [place] [address] UPPER GI ENDOSCOPY Social History Tobacco Use [...] GI ENDOSCOPY: WHAT TO EXPECT AT HOME (GEORGIAN) documented [...] Osullivan MD - 10/01/2012 5:07 PM EST [facility] Operative Note Patient Name: Naya Rodriguez : [id number] MR#: [id number] Case Date: 10/01/2012 Surgeon: Surgeon(s) and Role: [...] EDT Office [place] [address] Dion Osullivan MD [facility] [place] [address] 09/01/2024 9:40 AM EDT Office Visit Cardiology at [address] [phone] Franky Shaver MD [facility] [place] [address] 09/01/2024 11:20 AM EDT Office Visit Dermatology at [address] [place] [phone] Gómez Mercer MD [facility] [place] [address] 09/21/2024 2:45 PM EDT Office Visit [place] [address] Trung Hoyos MD [facility] [place] [address] documented as of this encounter Procedures Procedure [...] 5:54 PM EST) Surgical Pathology Report ? [facility] ? Provider: ?? Dion OSULLIVAN ?Pt. Name: ?? NAYA RODRIGUEZ ? Acc #: ?[id number] ?Pt. ? Col Date: ?? 10/01/2012 ? [...] MD PATHOLOGY/CYTOLOGY O CEE Performing Organization Address City/[facility] Co de Phone Number DURGA FREDERICK * Specimen to Pathology (surgical or derm) (10/01/2012 5:09 PM EST) AP Specimen 10/01/2012 5:09 PM EST 10/01/2012 5:09 PM EST Narrative [facility] ORDO[facility] - 10/01/2012 5:09 PM EST Specimen requisition ordered. ??Separate Pathology report to follow L Karthik Osullivan MD PATHOLOGY/CYTOLOGY O CEE [facility] * UPPER GI ENDOSCOPY (10/01/2012 4:41 PM EST) UPPER GI ENDOSCOPY [facility] Endoscopy Patient Name: Naya Rodriguez ? Procedure Date: 10/01/2012 4:41 PM ? Date of : 1950 ? Age: 62 ? Order #: [id number] ? Procedure: ? Upper GI endoscopy Indications: ? Epigastric abdominal pain Providers: ? L Karthik Osullivan MD, Alannah Singletary, ? RN, Mona Osborne, Push Bench Operator Helper Referring : ?Maximilian Fall MD Medicines: ? [...] GENERAL SURGICAL ORD ERAOMAR Performing Organization Address City/[facility] Co de Phone Number [facility]ATION * POCT GLUCOSE (10/01/2012 4:27 PM EST) Glucose, POC 84 60 - 199 mg/dL [facility] Comment: Supplemental ranges: <110 mg/dL before [...] documented in this encounter Care Teams Health Commissioner Relationship Specialty Start Date End Date Maximilian Fall MD [address] [place] [address] PCP - General 10/01/11 02/13/21 documented as of this encounter
--- OUTSIDE RECORDS SUMMARY | 2024-07-27 13:41 | XMS_ITS | Encounter Summary ---
Author Organization [facility] [place] [address] Care Team Providers Care International Recruiter Name Role Phone Maximilian Fall MD Primary Care Provider [phone] Reason for Visit * Reason Onset Date Comments Medication Refill 04/05/2014 Encounter Details Date Type Department Care Team (Late st Contact Info) Description 04/05/2014 [place] [address] Dion Barlow MD [facility] [place] [address] Social History Tobacco Use Types Packs/Day Years [...] 9:00 AM EDT Office [place] [address] Dion Barlow MD [facility] [place] [address] 09/01/2024 9:40 AM EDT Office Visit Cardiology at [address] [place] [address] Franky Shaver MD [facility] [place] [place] [address] 09/01/2024 11:20 AM EDT Office Visit Dermatology at [facility] [address] [place] [address] Gómez Mercer MD [facility] [place] [address] 09/21/2024 2:45 PM EDT Office Visit Pain and Spine Center at [facility] [phone] Trung Hoyos MD [facility] [place] [address] documented as of this encounter Visit Diagnoses Not on filedocumented in this encounter Care Teams International Recruiter Relationship Specialty Start Date End Date Maximilian Fall MD [address] [facility] [place] [address] PCP - General 10/01/11 02/13/21 documented as of this encounter
--- OUTSIDE RECORDS SUMMARY | 2024-07-27 13:42 | XMS_ITS | Encounter Summary ---
Author Organization [facility] Address [facility] [place] [address] Care Team Providers Care Law Researcher Name Role Phone More Naylor MD Primary Care Provider [phone] Reason for Visit * Reason Comments GI Problem Encounter Details Date Type Department Care Team (Late st Contact Info) Description 10/01/2011 9:30 AM EST Office [place] [address] Dion Barlow MD [facility] [place] [address] Ulcerative colitis (Primary Dx) Discharge Disposition: Home [...] has three kids. 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 He quit smoking in 1991 after [...] adenopathy and no thyromegaly. HEENT: PERRL, EOMI, NUTRIENT MANAGEMENT SPECIALIST and OP clear without ulceration or [...] questions 50 minutes of this 60 minute [id number] encounter were spent counseling the patient in the issuesoutlined above. Davina Barlow MD Weed Inspectoraddresser Section of Gastroenterology [place] [address] [email or web address] CC: MORE NAYLOR MD [address] [facility] [address] documented in this encounter Plan of Treatment Upcoming Encounters Date Type Department Care Team (Late st Contact Info) Description 08/15/2024 9:00 AM EDT Office [place] [address] Dion Barlow MD [facility] [place] [address] 09/01/2024 9:40 AM EDT Office Visit Cardiology at [address] [phone] Franky Shaver MD [facility] [place] [address] 09/01/2024 11:20 AM EDT Office Visit Dermatology at [address] [place] [address] Gómez Mercer MD [facility] DR EDD[place] [address] 09/21/2024 2:45 PM EDT Office Visit Pain and Spine Center at [facility] [place] [address] Trung Hoyos MD [facility] [place] [address] documented as of this encounter Visit Diagnoses Diagnosis Ulcerative colitis- Primary Ulcerative colitis, unspecified documented in this encounter Care Teams Law Researcher Relationship Specialty Start Date End Date More Naylor MD [address] [place] [address] PCP - General 10/01/11 02/13/21 documented as of this encounter
--- OUTSIDE RECORDS SUMMARY | 2024-07-27 13:42 | XMS_ITS | Encounter Summary ---
Author Organization [facility] Address [facility] [place] [address] Care Team Providers Care Smokehouse Operator Name Role Phone More Naylor MD Primary Care Provider [phone] Reason for Visit * Reason Comments Follow-up Encounter Details Date Type Department Care Team (Late st Contact Info) Description 11/05/2011 2:00 PM EST [place] [address] Dion Barlow MD [facility] [place] [address] Ulcerative colitis (Primary Dx) Discharge Disposition: Home [...] the preparation at this time. Please call [phone] to let us know that you cannot [...] time. ?? Please plan to be at [facility] for about 3 hours; please see your letter for estimated procedure and discharge times. If you have read the information thoroughly, and still have questions about what you have read, please call [phone] between the hours of 7:00am - 7:00pm, Thursday - Thursday and a nurse will assist you. If you have an urgent matter after hours, please call [phone], and ask to speak to the Gastroenterology Fellow mission systems engineer. If you need to reschedule your colonoscopy, please call [phone]. We do have a high volume of [...] information packet from Gastroenterology and Hepatology and [facility]: ?? Please read ALL information in your information packet. ?? If you have read the information thoroughly, and still have questions about what you have read, please call [phone] between the hours of 7:00am - 7:00pm Thursday - Thursday, and a nurse will assist you. ?? If you have an urgent matter after hours, please call [phone], and ask to speak to the Gastroenterology Fellow mission systems engineer. ?? If you need to reschedule your colonoscopy, please call [phone]. We do have a high volume of patients for this exam, so please give a least 72 hours notice for routine rescheduling. MEDICATION INFORMATION ?? Please call your prescribing physician to see if it is safe for you to lessen the dose or stop your medication prior to this procedure. Please note: If you cannot safely stop these medications, please call [phone]. The prescribing physician can give you instructions [...] you arrive (2 hours before your procedure) [facility] () ?? You will need to arrive ONE HOUR before your procedure time, to help you prepare for your procedure; please see your letter for exact arrival time. ?? Please plan to be at [facility] for about 3 hours; please [...] forms of transportation like cabs or buses. [email or web address] 1 FREQUENTLY ASKED QUESTIONS ABOUT YOUR COLONOSCOPY [...] do I follow? A: Please follow [facility] Gastroenterology instructions, NOT the instructions from the [...] you continue to have problems, please call [phone] during office hours at 7am - 5pm.After hours please call [phone], and ask for the Gastroenterology Fellow mission systems engineer. Q: Do I REALLY need to [...] have a deep chest cough, please call [phone] to see if you need to reschedule your appointment. Q: I am having my menstrual period. Should I reschedule my colonoscopy appointment? A: No. Your menstrual period will not interfere with your physician's ability to complete your procedure. [facility] FAQ 07/12/2009 Brian Rodriguez [address] [facility] [address] Thank you for choosing [facility] for your medical needs. You are scheduledfor a colonoscopy on at the Endoscopy Center at Water Treatment Specialist 4T (Level 4). Below you will find [...] about what you have read, please call [phone] between the hours of 7:00am - 7:00pm Thursday - Thursday, and ask to speak to the Gastroenterology Fellow mission systems engineer. If you need to reschedule your procedure please call: [phone]. Thank you for choosing [facility]. Sincerely, The Gastroenterology and Hepatology Team and the Endoscopy Center at [facility] documented in this encounter Progress Notes * Dion Barlow MD - 11/05/2011 2:31 PM EST Patient Active Problem List Diagnoses ??? Ulcerative colitis [556.9J] Colonoscopy 04/08/10 (Dr[facility] Gomes [facility] [...] 4. Arrange for colonoscopy. Davina Barlow MD Mustangergreenhouse technician Section of Gastroenterology [place] [address] CC: MORE NAYLOR MD [address] [place] [address] documented in this encounter Plan of Treatment Upcoming Encounters Date Type Department Care Team (Late st Contact Info) Description 08/15/2024 9:00 AM EDT Office [place] [address] Dion Barlow MD [facility] [place] [address] 09/01/2024 9:40 AM EDT Office Visit Cardiology at [address] [address] Franky Shaver MD [facility] [place] [address] 09/01/2024 11:20 AM EDT Office Visit Dermatology at [facility] [address] [place] [address] Gómez Mercer MD [facility] DR EDDIE [place] [address] 09/21/2024 2:45 PM EDT Office Visit Pain and Spine Center at [facility] [place] [address] Trung Hoyos MD [facility] [place] [address] documented as of this encounter Procedures Procedure [...] MD HEMATOLOGY ORDERABLE S Performing Organization Address [facility] Co de Phone Number [facility] * TPMT Enzyme (11/05/2011 3:15 PM EST) Pathologist [facility] TPMT Enzyme See Note [facility] Comment: Normal Activity Please see scanned report in Chart Review under the Non-DH Laboratory Heading. Test performed by [facility], [address] [place] [id number] Blood specimen (specimen) 11/05/2011 3:15 PM EST 11/05/2011 3:45 PM EST Dion Barlow MD CHEMISTRY ORDERABLES Performing Organization Address [facility] Co de Phone Number [facility] * High Sensitivity CRP (11/05/2011 3:15 PM EST) C-Reactive Protein High Sensitivity 2.3 mg/L [facility] Comment: Interpretations: 1) For cardiac risk assessment, [...] Barlow MD CHEMISTRY ORDERABLES Performing Organization Address [facility] de Phone Number [facility] * Sedimentation rate (11/05/2011 3:15 PM EST) [facility] Signature Sedimentation Rate Automated 13 0 - 15 mm/hr DURGA FREDERICK Blood specimen (specimen) 11/05/2011 3:15 PM EST 11/05/2011 3:22 PM EST L Karthik Barlow MD HEMATOLOGY ORDERABLE S Performing Organization Address [facility] de Phone Number CERGIOVANNI MILLENNIUM * CMP w/fasting Glucose (11/05/2011 3:15 PM EST) [facility] Glucose Fasting 97 65 - 99 mg/dL [...] of Diabetes Mellitus, Position Statement from the [place] [employer]. ??Diabetes Care, Volume 33, Supplement [...] MD HEMATOLOGY ORDERABLE S Performing Organization Address City/State/[facility] Co de Phone Number DURGA FREDERICK documented in this encounter Visit Diagnoses Diagnosis Ulcerative colitis- Primary Ulcerative colitis, unspecified documented in this encounter Care Teams Smokehouse Operator Relationship Specialty Start Date End Date More Naylor MD [address] [place] [address] PCP - General 10/01/11 02/13/21 documented as of this encounter
--- NOTE | 2024-07-27 14:00 | RT.EKG_ITS ---
APPROVED REPORT Exam: Resting ECG Reason for Exam: sob Patient Location: E HR:95 bpm ECG Measurements Heart Rate 95 AXIS MN 128 P 14 QRSd 143 QRS 69 QT 390 T -18 QTc 470 Conclusion Sinus rhythm...normal P axis, V-rate 60- 99 Multiform ventricular premature complexes...short R-R, variable morphology Right bundle branch block...QRSd>120, terminal axis(90,270) sinus, RBBB, frequent PVCs
--- NOTE | 2024-07-27 14:02 | ED.GENADUL_ITS ---
Discharge Plan Discharge Details Chief Complaint: SOB Primary Care Provider: Deacon Watters ED Provider: Donnell Zhu Home Meds and New Rx's Prescriptions: No Action naproxen 250 mg tablet 250 - 500 mg PO BID PRN (Reason: pain and inflammation) Qty: 30 0RF Rx Instructions: take with a meal aspirin 81 mg tablet,delayed release (DR/EC) 81 mg PO DAILY clopidogrel [Plavix] 75 mg tablet 75 mg PO DAILY insulin glargine-yfgn [Semglee(insulin glarg-yfgn)Pen] 100 unit/mL (3 mL) insulin pen 70 unit subcut DAILY metoprolol succinate 100 mg tablet extended release 24 hr 100 mg PO DAILY pantoprazole 40 mg tablet,delayed release (DR/EC) 40 mg PO DAILY spironolactone 25 mg tablet 25 mg PO DAILY atorvastatin 80 mg tablet 80 mg PO DAILY (DME) blood sugar diagnostic Strip See Rx Instructions .ROUTE .MEDSUPPLY Qty: 100 4RF Rx Instructions: One Daily acetaminophen [Tylenol] 325 mg tablet 650 mg PO Q4H PRN sulfasalazine 500 mg tablet 0.5 gm PO BID dicyclomine 20 mg tablet 20 mg PO Q8H PRN Patient Comments: TAKE ONE TABLET BY MOUTH EVERY 8 HOURS NEEDED epinephrine [EpiPen] 0.3 mg/0.3 mL auto-injector 0.3 ml IM ONCE Qty: 1 0RF Rx Instructions: SEVERE ALLERGIC REACTION TO INSECT STING sumatriptan succinate [Imitrex] 50 mg tablet 50 mg PO ONCE PRN (Reason: migraine headache) Qty: 7 5RF (DME) OneTouch Ultra Blue Test Strip Strip See Rx Instructions .ROUTE .MEDSUPPLY Qty: 100 4RF Rx Instructions: One Daily (DME) pen needle, diabetic [Pen Needle] 31 gauge x 5/16 needle 1 ea Miscellaneous DAILY Qty: 100 4RF Rx Instructions: BD ultrafine metformin 500 mg tablet 500 mg PO DAILY Qty: 90 3RF glipizide 10 mg tablet 10 mg PO DAILY Qty: 90 4RF folic acid 1 mg tablet 1 mg PO DAILY Qty: 90 4RF insulin glargine [Basaglar KwikPen U-100 Insulin] 100 unit/mL (3 mL) insulin pen 70 unit subcut HS Qty: 63 3RF losartan 100 mg tablet 100 mg PO DAILY Qty: 90 3RF nitroglycerin 0.4 mg tablet, sublingual 0.4 mg sublingual Q5M PRN Rx Instructions: do not exceed 3 doses per [place] [facility] [place] albuterol sulfate 90 mcg/actuation HFA aerosol inhaler 2 puff inhalation Q6H PRN (Reason: shortness of breath or wheezing) Qty: 8.5 2RF tamsulosin 0.4 mg capsule 0.4 mg PO HS Rx Instructions: Take 2 caps daily ketoconazole 2 % cream TOPICAL Patient Comments: APPLY TO THE AFFECTED AREAS ON THE GROIN TWICE DAILY (DME) pen needle, diabetic [BD Ultra-Fine Mini Pen Needle] 31 gauge x 3/16 needle MISCELLANEOUS Patient Comments: USE ONCE DAILY budesonide 2 mg/actuation foam NM Patient Comments: INSERT ONE PUMP RECTALLY NIGHTLY FOR 2 WEEKS, THEN CONTINUE EVERY OTHER NIGHT (4NIGHTS PER WEEK) HPI General Date/Time Provider Initiated Documentation: 07/27/24 13:58 . HPI Narrative: 74-year-old male history of NSTEMI recent stenting last month at [facility] endorses compliance with dual antiplatelet agents, presents with shortness of breath on exertion earlier today, referred in by cardiac rehab, no chest pain no presyncope no nausea no vomiting no diaphoresis. Feeling comfortable currently. Related Data Home Medications ?Medication ?Instructions ?Recorded ?Confirmed acetaminophen 325 mg tablet 650 mg PO Q4H PRN 03/07/19 07/22/24 (Tylenol) sulfasalazine 500 mg tablet 0.5 gm PO BID 10/11/19 07/22/24 epinephrine 0.3 mg/0.3 mL 0.3 ml IM ONCE #1 ea 05/01/21 07/22/24 injection, auto-injector (EpiPen) sumatriptan succinate 50 mg tablet 50 mg PO ONCE PRN migraine 01/13/22 07/22/24 (Imitrex) headache #7 tab-caps naproxen 250 mg tablet 250 - 500 mg (1 - 2 x 250 mg) PO 09/17/22 07/22/24 BID PRN pain and inflammation #30 tabs blood sugar diagnostic #100 ea 06/04/23 07/22/24 pen needle, diabetic 31 gauge x #100 ea 06/04/23 07/22/24/16 (Pen Needle) metformin 500 mg tablet 500 mg PO DAILY #90 tab-caps 01/06/24 07/22/24 folic acid 1 mg tablet 1 mg PO DAILY #90 tab-caps 02/10/24 07/22/24 glipizide 10 mg tablet 10 mg PO DAILY #90 tab-caps 02/10/24 07/22/24 insulin glargine 100 unit/mL (3 70 unit (0.7 mL) subcut HS #63 mL 03/02/24 07/22/24 mL) subcutaneous pen (Basaglar KwikPen U-100 Insulin) losartan 100 mg tablet 100 mg PO DAILY #90 tabs 03/02/24 07/22/24 tamsulosin 0.4 mg capsule 0.4 mg PO HS 06/29/24 07/22/24 budesonide 2 mg/actuation rectal NM 06/30/24 07/22/24 foam ketoconazole 2 % topical cream applic topical 06/30/24 07/22/24 pen needle, diabetic 31 gauge x 06/30/24 07/22/24 3/16 (BD Ultra-Fine Mini Pen Needle) aspirin 81 mg tablet,delayed 81 mg PO DAILY 07/06/24 07/22/24 release atorvastatin 80 mg tablet 80 mg PO DAILY 07/06/24 07/22/24 clopidogrel 75 mg tablet (Plavix) 75 mg PO DAILY 07/06/24 07/22/24 dicyclomine 20 mg tablet 20 mg PO Q8H PRN 07/06/24 07/22/24 insulin glargine-yfgn 100 unit/mL 70 unit subcut DAILY 07/06/24 07/22/24 (3 mL) subcutaneous pen (Semglee (insulin glargine-yfgn) Pen) metoprolol succinate 100 mg 100 mg PO DAILY 07/06/24 07/22/24 tablet,extended release 24 hr nitroglycerin 0.4 mg sublingual 0.4 mg sublingual Q5M PRN 07/06/24 07/22/24 tablet pantoprazole 40 mg tablet,delayed 40 mg PO DAILY 07/06/24 07/22/24 release spironolactone 25 mg tablet 25 mg PO DAILY 07/06/24 07/22/24 albuterol sulfate 90 mcg/actuation 2 puff inhalation Q6H PRN 07/13/24 07/22/24 aerosol inhaler shortness of breath or wheezing #8.5 grams blood sugar diagnostic #100 ea 07/22/24 07/22/24 Previous Rx's ?Medication ?Instructions ?Recorded epinephrine 0.3 mg/0.3 mL 0.3 ml IM ONCE #1 ea 05/01/21 injection, auto-injector (EpiPen) sumatriptan succinate 50 mg tablet 50 mg PO ONCE PRN migraine 01/13/22 (Imitrex) headache #7 tab-caps naproxen 250 mg tablet 250 - 500 mg (1 - 2 x 250 mg) PO 09/17/22 BID PRN pain and inflammation #30 tabs blood sugar diagnostic #100 ea 06/04/23 pen needle, diabetic 31 gauge x #100 ea 06/04/2304/07 (Pen Needle) metformin 500 mg tablet 500 mg PO DAILY #90 tab-caps 01/06/24 folic acid 1 mg tablet 1 mg PO DAILY #90 tab-caps 02/10/24 glipizide 10 mg tablet 10 mg PO DAILY #90 tab-caps 02/10/24 insulin glargine 100 unit/mL (3 70 unit (0.7 mL) subcut HS #63 mL 03/02/24 mL) subcutaneous pen (Basaglar KwikPen U-100 Insulin) losartan 100 mg tablet 100 mg PO DAILY #90 tabs 03/02/24 albuterol sulfate 90 mcg/actuation 2 puff inhalation Q6H PRN 07/13/24 aerosol inhaler shortness of breath or wheezing #8.5 grams blood sugar diagnostic #100 ea 07/22/24 Allergies Allergy/AdvReac Type Severity Reaction Status Date / Time hornet venom Allergy Severe Anaphylaxis Verified 07/27/24 13:41 amitriptyline Allergy Hives Verified 07/27/24 13:41 cephalexin (From Keflex) AdvReac Intermediate headaches Verified 07/27/24 13:41 empagliflozin (From AdvReac Intermediate Yeast Verified 07/27/24 13:41 Jardiance) infection finasteride (From Proscar) AdvReac Intermediate testicle Verified 07/27/24 13:41 pain Tetracyclines AdvReac Intermediate NAUSEA Verified 07/27/24 13:41 erythromycin base AdvReac Unknown NAUSEA Verified 07/27/24 13:41 General Stated Complaint: SOB CELSO: 2 Exam Narrative Exam Narrative: Alert oriented resting comfortably no acute distress Moist mucous membranes tongue secretions normal voice Lungs clear bilaterally no wheezes rales or rhonchi No peripheral edema Lungs clear bilaterally no murmurs rubs or gallops Ambulatory without assistance no focal neurologic deficits Course Vital Signs Vital signs: Vital Signs Temperature 36.4 C 07/27/24 13:33 Pulse 99 H 07/27/24 13:33 Respiratory Rate 16 07/27/24 13:33 Blood Pressure 120/63 07/27/24 13:33 Pulse Oximetry 100 07/27/24 13:33 Temperature 36.4 C 07/27/24 13:33 Temperature Source Oral 07/27/24 13:33 Pulse 99 H 07/27/24 13:33 Respiratory Rate 16 07/27/24 13:33 Respiratory Effort Short of Breath 07/27/24 13:42 Blood Pressure 120/63 07/27/24 13:33 Blood Pressure Position Sitting 07/27/24 13:33 Pulse Oximetry 100 07/27/24 13:33 Oxygen Delivery Method Room Air 07/27/24 13:33 Oxygen Flow Rate 0 07/27/24 13:33 Pain Level 0 07/27/24 13:33 Medical Decision Making 74-year-old male history of NSTEMI recent stenting last month at [facility] endorses compliance with dual antiplatelet agents, presents with shortness of breath on exertion earlier today, referred in by cardiac rehab, no chest pain no presyncope no nausea no vomiting no diaphoresis. Feeling comfortable currently; afebrile nontoxic resting comfortably asymptomatic currently. Not requiring any supplemental oxygen no peripheral edema, EKG showing frequent PVCs. Consider electrolyte derangement versus ACS versus CHF lower suspicion for PE or aortic pathology lower suspicion for infectious process such as viral or bacterial pneumonia. Mildly elevated troponin slightly uptrending again remains chest pain-free with no respiratory distress feeling more comfortable currently. Counseled patient regarding findings, patient adamant that he does not want to stay in the hospital. I have encouraged him to wait for a another troponin to trend these values to better prognosticate his risk factors, I have also touch base with cardiology team at [facility] who agree that assessing third troponin considering light diuresis and reassessing patient if plateauing/downtrending troponin they will see him as scheduled if uptrending or worsening symptoms consider admission for observation echocardiogram and further medical management. Quality:SDOH Health Related Social Needs: Health related social needs details daughter lives wit h pt and son lives next door PFS All Active Problems (Updated 07/01/24 @ 00:05 by MARK NUNEZ) BPH without obstruction/lower urinary tract symptoms (Chronic) HTN (hypertension) (Chronic) Non-ST elevation [place] (NSTEMI) (Acute) Chronic neck pain (Acute) Chronic cough (Acute) Asthma (Chronic) Diabetes mellitus (Chronic 03/10/13) Diabetic peripheral neuropathy associated with type 2 diabetes mellitus (Chronic 12/18/17) Gastroesophageal reflux disease (Chronic) Hearing loss (Chronic) Right lumbar radiculopathy (Chronic 12/06/15) Ulcerative colitis (Chronic) mild Inguinodynia, left (Acute) Prostatitis (Acute) Hydrocele (Acute) History of tobacco use (Acute) Family history of colon cancer (Acute) Diverticulosis of sigmoid colon (Acute) Colon polyp (Acute) Pain in left testicle (Acute) BPH loc w urin obs/LUTS (Acute) Microscopic hematuria (Acute) Left inguinal pain (Acute) Lumbar back pain with radiculopathy affecting left lower extremity (Acute) Hiatal hernia with GERD (Acute) Dysuria (Acute) Exertional dyspnea (Acute) Hyperlipidemia (Acute) Right shoulder pain (Acute) Traumatic tear of right rotator cuff (Acute 01/01/22) Skin lesion (Acute) Status post arthroscopy of right shoulder (Acute 09/05/22) s/p rotator cuff repair of supraspinatus, arthroscopic biceps tenodesis, extensive debridement and subacromial decompression Medical History Skin cancer removal x2 weeks ago Glaucoma surgery fixed Tendonitis of long head of biceps brachii of right shoulder Bursitis of right shoulder Esophagitis Subdural hemorrhage Age 17, and a tree fell and hit him age 47 Abnormal colonoscopy 02/22/19 tubular adenoma ascending and transverse colon, sessile serrated [place] jaxon @ 50cm, rectosigmoid colon moderately active chronic colitis/proctitis. mg Inguinal hernia of left side without obstruction or gangrene COPD (chronic obstructive pulmonary disease) Essential hypertension GERD (gastroesophageal reflux disease) Ulcerative colitis DM2 (diabetes mellitus, type 2) Skin cancer, basal cell (10/08/16) Surgical History History of cataract surgery History of esophagogastroduodenoscopy (EGD) (~06/28/21) History of herniorrhaphy (10/19/18) left indirect, dr perez History of appendectomy History of open reduction and internal fixation (ORIF) procedure wrist and ankle [place] [facility] [place] Family History Mother Leukemia Father Neoplasm Grandfather Neoplasm STOMACH Grandmother Diabetes Colitis Brother Prostate cancer Nephew Prostate cancer Social History Smoking/Tobacco Use Status: Former Tobacco Use Quit Date: 11/23/91 Pack-years: 20 Second Hand Exposure: Yes Smoking risk assessment performed?: Yes Alcohol Intake: former Drug use: Never Substance use type: does not use Details: alcohol t-7 Caregiver/Support person: No Housing: house Number of Children: 2 Communication Needs: Hard of Hearing Do you need help understanding health information?: Rarely current occupation: Retired Pets and animals: No Sexually active: No Do you think of yourself as: straight/heterosexual Current gender identity: male What is your relationship status?: How often do you talk on the phone with friends or family?: three or more times per week How often do you get together with friends or relatives?: never How often do you attend roman catholic or temple services?: decline to answer Do you belong to any clubs or organized social groups?: no Panel score (0-1 are the most socially isolated patients): 1 What type of physical activity do you participate in: walking Duration: > 90 minutes/day Frequency: daily Special harmeet needs: No Seatbelt use: always Helmet use: Yes Helmet use: always Drive intox or ride w/intox restaurant delivery driver: No Do you feel safe at home: Yes Do you feel safe in your relationship?: Yes Victim of physical abuse: No Victim of emotional abuse: No Victim of sexual abuse: No Would you like helpful sources: No Additional Social history: lives alone
[2024-07-27 14:16] LABS: Abs Immature Grans 0.02 10^3/uL (0.0-0.06); Absolute Basophil Count 0.04 10^3/uL (0.0-0.2); Absolute Lymphocyte Count 1.11 10^3/uL (1.2-3.4); Absolute Neutrophil Count 5.51 10^3/uL (1.2-6.7); Basophils % 0.6 %; Eosinophils % 1.4 %; HCT 36.8 % (40.0-50.0); HGB 12.5 g/dL (13.5-17.5); Immature Grans % 0.3 %; Lymphocytes % 15.5 %; MCH 33.9 pg (27.0-33.0); MCV 100 fL (80-95); Monocytes % 5.6 %; Neutrophils % 76.6 %; Platelet Count 179 10^3/uL (130-400); RBC 3.69 10^6/uL (4.36-5.78); RDW 12.3 % (11.8-14.1); RDW-SD 44.7 fL; WBC 7.18 10^3/uL (4.4-10.8)
[2024-07-27 14:33] LABS: INR 1.1 (0.9-1.1); PTT Activated 23.2 sec (23.6-32.8); Prothrombin Time 10.8 sec (9.1-11.1)
[2024-07-27] MEDS: Aspirin 81 MG CHEW 324 MG CH (14:34)
[2024-07-27 15:27] LABS: Troponin I 101 ng/L (< or =60)
--- NOTE | 2024-07-27 15:27 | DI.RAD_ITS ---
Exam(s) XR CHEST 2V PA LATERAL EXAM: XR CHEST 2V PA LATERAL CLINICAL HISTORY: not feeling well, tachycardia. TECHNIQUE: 2D digital imaging was performed. COMPARISON: CR XR CHEST 2V PA LATERAL from 06/29/2024 FINDINGS: 2 views: Tenting of both hemidiaphragms is again. Heart size is normal. The mediastinum is not widened. Lungs are clear. No infiltrates nor pleural effusions. IMPRESSION: No acute pulmonary findings. DATA REPOSITORY: RADIATION DOSE DELIVERED:
[2024-07-27 15:55] LABS: ALT 24 U/L (16-63); AST 15 U/L (15-37); Albumin 4.3 g/dL (3.4-5.0); Alkaline Phosphatase 84 U/L (46-116); Anion Gap 12.9 mmol/L (3-11); BUN 14 mg/dL (7-18); Bilirubin, Total 0.82 mg/dL (0.2-1.0); CO2 23.1 mmol/L (21.0-32.0); CREATININE 1.4 mg/dL (0.70-1.30); Calcium 10.1 mg/dL (8.5-10.1); Chloride 104 mmol/L (98-107); Estimated GFR 52.09 (mL/min/1.73m2); Glucose 188 mg/dL (74-106); Magnesium 1.4 mg/dL (1.8-2.4); NT-proBNP 1947 pg/mL (<300); Potassium 3.6 mmol/L (3.5-5.1); Sodium 140 mmol/L (136-145); TSH (W/Ref FT4) 11.71 uIU/mL (0.36-3.74); Total Protein 8.9 g/dL (6.4-8.2)
[2024-07-27 15:56] LABS: Troponin I 95 ng/L (< or =60)
[2024-07-27 16:13] LABS: FREE T4 0.81 ng/dL (0.76-1.46)
[2024-07-27] MEDS: MAGNESIUM SULFATE 1 GM/100 ML BAG IVINF (16:48)
--- NOTE | 2024-07-27 17:00 | RT.EKG_ITS ---
APPROVED REPORT Exam: Resting ECG Reason for Exam: chest pain Patient Location: E HR:86 bpm ECG Measurements Heart Rate 86 AXIS IL 159 P 6 QRSd 141 QRS 48 QT 397 T -24 QTc 465 Conclusion Sinus rhythm...normal P axis, V-rate 60- 99 Right bundle branch block...QRSd>120, terminal axis(90,270) sinus rhythm, normal axis, RBB, unchanged from prior, PVC
[2024-07-27 17:04] LABS: Troponin I 124 ng/L (< or =60)
--- NOTE | 2024-07-27 17:39 | W.EDPROG ---
Date of service: 07/27/24 Time of Service: 17:39 Medical Decision Making Patient developed chest pain rating to left shoulder repeat EKG unchanged, troponin is uptrending, from 95-1 100-120s; EKG unchanged. Spoke with cardiology team at [facility] who will list him for transfer on 07/[address] Parrish; patient amenable to admission for later transfer. Intermittent rates in the 120s to 150s when patient stands up, appears to be sinus tach with aberrancy on the monitor, as well as PVCs; have initiated heparin patient is already on dual antiplatelet agents as well as high-dose statin. Quality:SDOH Health Related Social Needs: Health related social needs details daughter lives with pt and son lives next door Discharge Plan Disposition Patient Disposition: Admit to [facility] Condition: Stable Discharge Details Chief Complaint: SOB Clinical Impression: Non-ST elevation [place] (NSTEMI) Primary Care Provider: Deacon Watters ED Provider: Donnell Zhu Meds and New Rx's Prescriptions: No Action naproxen 250 mg tablet 250 - 500 mg PO BID PRN (Reason: pain and inflammation) Qty: 30 0RF Rx Instructions: take with a meal aspirin 81 mg tablet,delayed release (DR/EC) 81 mg PO DAILY clopidogrel [Plavix] 75 mg tablet 75 mg PO DAILY insulin glargine-yfgn [Semglee(insulin glarg-yfgn)Pen] 100 unit/mL (3 mL) insulin pen 70 unit subcut DAILY metoprolol succinate 100 mg tablet extended release 24 hr 100 mg PO DAILY pantoprazole 40 mg tablet,delayed release (DR/EC) 40 mg PO DAILY spironolactone 25 mg tablet 25 mg PO DAILY atorvastatin 80 mg tablet 80 mg PO DAILY (DME) blood sugar diagnostic Strip See Rx Instructions .ROUTE .MEDSUPPLY Qty: 100 4RF Rx Instructions: One Daily acetaminophen [Tylenol] 325 mg tablet 650 mg PO Q4H PRN sulfasalazine 500 mg tablet 0.5 gm PO BID dicyclomine 20 mg tablet 20 mg PO Q8H PRN Patient Comments: TAKE ONE TABLET BY MOUTH EVERY 8 HOURS NEEDED epinephrine [EpiPen] 0.3 mg/0.3 mL auto-injector 0.3 ml IM ONCE Qty: 1 0RF Rx Instructions: SEVERE ALLERGIC REACTION TO INSECT STING sumatriptan succinate [Imitrex] 50 mg tablet 50 mg PO ONCE PRN (Reason: migraine headache) Qty: 7 5RF (DME) OneTouch Ultra Blue Test Strip Strip See Rx Instructions .ROUTE .MEDSUPPLY Qty: 100 4RF Rx Instructions: One Daily (DME) pen needle, diabetic [Pen Needle] 31 gauge x 5/16 needle 1 ea Miscellaneous DAILY Qty: 100 4RF Rx Instructions: BD ultrafine metformin 500 mg tablet 500 mg PO DAILY Qty: 90 3RF glipizide 10 mg tablet 10 mg PO DAILY Qty: 90 4RF folic acid 1 mg tablet 1 mg PO DAILY Qty: 90 4RF insulin glargine [Basaglar KwikPen U-100 Insulin] 100 unit/mL (3 mL) insulin pen 70 unit subcut HS Qty: 63 3RF losartan 100 mg tablet 100 mg PO DAILY Qty: 90 3RF nitroglycerin 0.4 mg tablet, sublingual 0.4 mg sublingual Q5M PRN Rx Instructions: do not exceed 3 doses per episode per [facility] [place] discharge albuterol sulfate 90 mcg/actuation HFA aerosol inhaler 2 puff inhalation Q6H PRN (Reason: shortness of breath or wheezing) Qty: 8.5 2RF tamsulosin 0.4 mg capsule 0.4 mg PO HS Rx Instructions: Take 2 caps daily ketoconazole 2 % cream TOPICAL Patient Comments: APPLY TO THE AFFECTED AREAS ON THE GROIN TWICE DAILY (DME) pen needle, diabetic [BD Ultra-Fine Mini Pen Needle] 31 gauge x 3/16 needle MISCELLANEOUS Patient Comments: USE ONCE DAILY budesonide 2 mg/actuation foam OK Patient Comments: INSERT ONE PUMP RECTALLY NIGHTLY FOR 2 WEEKS, THEN CONTINUE EVERY OTHER NIGHT (4NIGHTS PER WEEK)
[2024-07-27 17:43] LABS: Bilirubin Negative (Negative); Blood Trace-intact (Negative); Clarity Clear (Clear); Glucose Negative (Negative); Ketones Negative (Negative); Leukocyte Esterase Moderate (Negative); Nitrite Negative (Negative); Specific Gravity 1.015 (1.005-1.025); Urobilinogen 0.2 mg/dL (Up to 0.2); pH 5.5 (5-8)
[2024-07-27] MEDS: Heparin in 0.45% NaCl 25,000 UNIT/250 ML BAG 10 UNIT IV (17:47)
[2024-07-27] MEDS: Furosemide 40 MG/4 ML VIAL IVP (17:47)
[2024-07-27 17:52] LABS: Epithelial Cells Few HPF (Negative); Other Cells Moderate Yeast (Negative); RBC 0-2 HPF (0-2)
[2024-07-27 17:53] LABS: Bacteria Rare HPF (Negative); C & S Indicated? Yes; Casts Negative LPF (Negative); Crystals Negative HPF (Negative); Mucus Negative (Negative)
--- NOTE | 2024-07-27 18:41 | HPE_ITS ---
Date of service: 07/27/24 Time of Service: 18:42 Assessment and Plan Assessment and plan (1) Non-ST elevation LA (NSTEMI): Start date: 07/27/24 Status: Acute Assessment and plan: This is a 74-year-old gentleman presenting with increasing exertional dyspnea with no true chest pain but shoulder pain in the left leg appears to be osteoarthritic. With the previous non-STEMI and early June he did have jaw pain and this did not recur. He had no other associated symptoms. He did not receive nitroglycerin in the ED. Troponins were positive and slightly trending upward with continued trending. The patient was initiated on IV heparin with plans for [place] [facility] [place] any interventions [place]24. He has been accepted to cardiology service. He is a full code. (2) UTI (urinary tract infection): Start date: 07/27/24 Status: Acute Assessment and plan: Patient will be treated with Levaquin orally with no other symptoms and a positive UA and dysuria. This is recurrent. Continue outpatient medical therapy for BPH and urinary symptoms. Qualifiers: Hematuria presence: with hematuria Urinary tract infection type: acute cystitis Qualified Code(s): N30.01 - Acute cystitis with hematuria (3) Hypomagnesemia: Start date: 07/27/24 Status: Acute Assessment and plan: IV repletion with trending labs. Patient is having ectopy which should respond to be replacement. (4) Essential hypertension: Assessment and plan: Monitor on outpatient medical therapy adjusting as needed. (5) DM2 (diabetes mellitus, type 2): Assessment and plan: Glucometer measurements before meals and at bedtime with corrective insulin coverage while hospitalized. Qualifiers: Diabetes mellitus complication detail: with polyneuropathy Diabetes mellitus complication status: with neurologic complications Diabetes mellitus [employer] insulin use: with [employer] use Qualified Code(s): E11.42 - Type 2 diabetes mellitus with diabetic polyneuropathy; Z79.4 - halfway (current) use of insulin (6) Hyperlipidemia: Status: Chronic Assessment and plan: Continue statin therapy. Qualifiers: Hyperlipidemia type: mixed hyperlipidemia Qualified Code(s): E78.2 - Mixed hyperlipidemia (7) COPD (chronic obstructive pulmonary disease): Assessment and plan: Nebulizers as needed. This does not appear to be exacerbated. Qualifiers: COPD type: chronic bronchitis Chronic bronchitis type: unspecified Q ualified Code(s): J42 - Unspecified chronic bronchitis (8) GERD (gastroesophageal reflux disease): Assessment and plan: Continue PPI. Patient is on Protonix being on Plavix for his recent stenting. Qualifiers: Esophagitis presence: without esophagitis Qualified Code(s): K21.9 - Gastro-esophageal reflux disease without esophagitis (9) Ulcerative colitis: Assessment and plan: No recent flare of the patient to have sulfasalazine and dicyclomine as per outpatient treatment. Qualifiers: Digestive disease complication type: without complication Ulcerative colitis location: other ulcerative colitis Qualified Code(s): K51.80 - Other ulcerative colitis without complications History of Present Illness History of Present Illness Chief Complaint: Exertional shortness of breath with chest pain. Narrative: This is a 74-year-old male patient who was admitted with a non-STEMI and [place] [facility] [place] in stenting on 07/02/2024 now presenting with returning exertional dyspnea which is worse than his previous presentation but also some associated chest discomfort which has resolved in the ED. He did have a positive troponin which was trending slightly up though not severely elevated and has been pain-free since. In the ED. He is on a heparin infusion with plans for transfer within 48 hours be excepted [place] [facility] [place]29[place]. Since his previous non-STEMI he has been slowly increasing activity and may have overdone it recently with taking care of his chickens in the morning, stacking firewood and also normal hikes on his travels and his nearby [place]. He is going to cardiac rehab and when reported to cardiac rehab the morning of admission he complained of his increased dyspnea with exertion with the nurses hooking him up and not liking what they saw. There is no mention of EKG changes though he does have frequent ectopy with PVCs. There is also no mention of use of nitroglycerin sublingually though he does have his on his outpatient medication list. 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 He was not complaining of retrosternal chest pain. His previous non-STEMI he did have some jaw discomfort which has not recurred. There are no other associated symptoms with his presentation. Patient is somewhat of a vague historian. He is a full code. Review of Systems Narrative: 13 point review of systems otherwise unrevealing or stable. Patient is chronically overweight. 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 Patient does have a history of recurrent UTIs and recently has had dysuria but no back pain, fever or chills. He has had a recent course of oral quinolone for UTI. His urinalysis was positive in the ED. PFSH All Active Problems Hypomagnesemia (Acute) UTI (urinary tract infection) (Acute) Non-ST elevation LA (NSTEMI) (Acute) BPH without obstruction/lower urinary tract symptoms (Chronic) HTN (hypertension) (Chronic) Non-ST elevation LA (NSTEMI) (Acute) Chronic neck pain (Acute) Chronic cough (Acute) Asthma (Chronic) Diabetes mellitus (Chronic 03/10/13) Diabetic peripheral neuropathy associated with type 2 diabetes mellitus (Chronic 12/18/17) Gastroesophageal reflux disease (Chronic) Hearing loss (Chronic) Right lumbar radiculopathy (Chronic 12/06/15) Ulcerative colitis (Chronic) mild Inguinodynia, left (Acute) Prostatitis (Acute) Hydrocele (Acute) History of tobacco use (Acute) Family history of colon cancer (Acute) Diverticulosis of sigmoid colon (Acute) Colon polyp (Acute) Pain in left testicle (Acute) BPH loc w urin obs/LUTS (Acute) Microscopic hematuria (Acute) Left inguinal pain (Acute) Lumbar back pain with radiculopathy affecting left lower extremity (Acute) Hiatal hernia with GERD (Acute) Dysuria (Acute) Exertional dyspnea (Acute) Hyperlipidemia (Chronic) Right shoulder pain (Acute) Traumatic tear of right rotator cuff (Acute 01/01/22) Skin lesion (Acute) Status post arthroscopy of right shoulder (Acute 09/05/22) s/p rotator cuff repair of supraspinatus, arthroscopic biceps tenodesis, extensive debridement and subacromial decompression Medical History Skin cancer removal x2 weeks ago Glaucoma surgery fixed Tendonitis of long head of biceps brachii of right shoulder Bursitis of right shoulder Esophagitis Subdural hemorrhage Age 17, and a tree fell and hit him age 47 Abnormal colonoscopy 02/22/19 tubular adenoma ascending and transverse colon, sessile serrated adenoma @ 50cm, rectosigmoid colon moderately active chronic colitis/proctitis. mg Inguinal hernia of left side without obstruction or gangrene COPD (chronic obstructive pulmonary disease) Essential hypertension GERD (gastroesophageal reflux disease) Ulcerative colitis DM2 (diabetes mellitus, type 2) Skin cancer, basal cell (10/08/16) Surgical History History of cataract surgery History of esophagogastroduodenoscopy (EGD) (~06/28/21) History of herniorrhaphy (10/19/18) left indirect, dr perez History of appendectomy History of open reduction and internal fixation (ORIF) procedure wrist and ankle Colonoscopy - [facility] [place]13[place] [facility] [place] Family History Mother Leukemia Father Neoplasm Grandfather Neoplasm STOMACH Grandmother Diabetes Colitis Brother Prostate cancer Nephew Prostate cancer Social History Smoking/Tobacco Use Status: Former Tobacco Use Quit Date: 11/23/91 Pack-years: 20 Second Hand Exposure: Yes Smoking risk assessment performed?: Yes Alcohol Intake: former Drug use: Never Substance use type: does not use Details: alcohol t-7 Caregiver/Support person: No Housing: house Number of Children: 2 Communication Needs: Hard of Hearing Do you need help understanding health information?: Rarely current occupation: Retired Pets and animals: No Sexually active: No Do you think of yourself as: straight/heterosexual Current gender identity: male What is your relationship status?: How often do you talk on the phone with friends or family?: three or more times per week How often do you get together with friends or relatives?: never How often do you attend episcopal or orthodoxy services?: decline to answer Do you belong to any clubs or organized social groups?: no Panel score (0-1 are the most socially isolated patients): 1 What type of physical activity do you participate in: walking Duration: > 90 minutes/day Frequency: daily Special harmeet needs: No Seatbelt use: always Helmet use: Yes Helmet use: always Drive intox or ride w/intox tier truck driver: No Do you feel safe at home: Yes Do you feel safe in your relationship?: Yes Victim of physical abuse: No Victim of emotional abuse: No Victim of sexual abuse: No Would you like helpful sources: No Additional Social history: lives alone Meds Allergies and Home Medications Allergies Allergy/AdvReac Type Severity Reaction Status Date / Time hornet venom Allergy Severe Anaphylaxis Verified 07/27/24 13:41 amitriptyline Allergy Hives Verified 07/27/24 13:41 cephalexin (From Keflex) AdvReac Intermediate headaches Verified 07/27/24 13:41 empagliflozin (From AdvReac Intermediate Yeast Verified 07/27/24 13:41 Jardiance) infection finasteride (From Proscar) AdvReac Intermediate testicle Verified 07/27/24 13:41 pain Tetracyclines AdvReac Intermediate NAUSEA Verified 07/27/24 13:41 erythromycin base AdvReac Unknown NAUSEA Verified 07/27/24 13:41 Home Medications ?Medication ?Instructions ?Recorded ?Confirmed ?Type acetaminophen 325 mg tablet 650 mg PO Q4H PRN 03/07/19 07/27/24 History (Tylenol) sulfasalazine 500 mg tablet 0.5 gm PO BID 10/11/19 07/27/24 History epinephrine 0.3 mg/0.3 mL 0.3 ml IM ONCE #1 ea 05/01/21 07/27/24 Rx injection, auto-injector (EpiPen) sumatriptan succinate 50 mg tablet 50 mg PO ONCE PRN migraine 01/13/22 07/27/24 Rx (Imitrex) headache #7 tab-caps naproxen 250 mg tablet 250 - 500 mg (1 - 2 x 250 mg) PO 09/17/22 07/27/24 Rx BID PRN pain and inflammation #30 tabs blood sugar diagnostic #100 ea 06/04/23 07/27/24 Rx pen needle, diabetic 31 gauge x #100 ea 06/04/23 07/27/24 Rx 5/16 (Pen Needle) metformin 500 mg tablet 500 mg PO DAILY #90 tab-caps 01/06/24 07/27/24 Rx folic acid 1 mg tablet 1 mg PO DAILY #90 tab-caps 02/10/24 07/27/24 Rx glipizide 10 mg tablet 10 mg PO DAILY #90 tab-caps 02/10/24 07/27/24 Rx insulin glargine 100 unit/mL (3 70 unit (0.7 mL) subcut HS #63 mL 03/02/24 07/27/24 Rx mL) subcutaneous pen (Basaglar KwikPen U-100 Insulin) losartan 100 mg tablet 100 mg PO DAILY #90 tabs 03/02/24 07/27/24 Rx tamsulosin 0.4 mg capsule 0.4 mg PO HS 06/29/24 07/27/24 History budesonide 2 mg/actuation rectal IA 06/30/24 07/22/24 History foam ketoconazole 2 % topical cream 1 applic topical 06/30/24 07/22/24 History pen needle, diabetic 31 gauge x 06/30/24 07/27/24 History 3/16 (BD Ultra-Fine Mini Pen Needle) aspirin 81 mg tablet,delayed 81 mg PO DAILY 07/06/24 07/27/24 History release atorvastatin 80 mg tablet 80 mg PO DAILY 07/06/24 07/27/24 History clopidogrel 75 mg tablet (Plavix) 75 mg PO DAILY 07/06/24 07/27/24 History dicyclomine 20 mg tablet 20 mg PO Q8H PRN 07/06/24 07/27/24 History insulin glargine-yfgn 100 unit/mL 70 unit subcut DAILY 07/06/24 07/27/24 History (3 mL) subcutaneous pen (Semglee (insulin glargine-yfgn) Pen) metoprolol succinate 100 mg 100 mg PO DAILY 07/06/24 07/27/24 History tablet,extended release 24 hr nitroglycerin 0.4 mg sublingual 0.4 mg sublingual Q5M PRN 07/06/24 07/27/24 History tablet pantoprazole 40 mg tablet,delayed 40 mg PO DAILY 07/06/24 07/27/24 History release spironolactone 25 mg tablet 25 mg PO DAILY 07/06/24 07/27/24 History albuterol sulfate 90 mcg/actuation 2 puff inhalation Q6H PRN 07/13/24 07/27/24 Rx aerosol inhaler shortness of breath or wheezing #8.5 grams blood sugar diagnostic #100 ea 07/22/24 07/27/24 Rx Exam Narrative Exam Narrative: General: Patient appears appropriate for age, moderately obese especially over his trunk. He is in no acute distress. Alert and oriented x 3. HEENT: Normocephalic, eyes with pupils equal and react to light symmetrically, extraocular movement intact and sclera anicteric. Oropharynx with moist mucosa. Neck: Supple without JVD. Back: Stooped posture without CVA tenderness. Lungs: Fair aeration and clear to auscultation percussion. No focalizing rales or rhonchi. Heart: Regular rate with irregular rhythm and infrequent ectopy on playground monitor with unifocal PVCs. No appreciable murmur or gallop. Abdomen: Obese contour, soft and nontender evaluated no palpable hepatosplenomegaly. Bowel sounds positive all quadrants. No guarding or rebound. Genitalia/rectal: Exam deferred. Extremities: Chronic arthritic changes over the legs especially with no joint swelling with decreased range of motion. Nonpitting edema which patient states is chronic over his legs and feet. No clubbing or cyanosis. Fair capillary refill. Skin: Normal color, warm and dry. Neuro: Cranial nerves II through XII gross intact, no focal motor deficits. No tremor. Psych: Slightly euphoric at times, otherwise normal affect and mood. No abnormal thought processes. Remote and recent memory intact. Results Imaging Imaging Studies: EXAM: XR CHEST 2V PA LATERAL CLINICAL HISTORY: not feeling well, tachycardia. TECHNIQUE: 2D digital imaging was performed. COMPARISON: CR XR CHEST 2V PA LATERAL from 06/29/2024 FINDINGS: 2 views: Tenting of both hemidiaphragms is again. Heart size is normal. The mediastinum is not widened. Lungs are clear. No infiltrates nor pleural effusions. IMPRESSION: No acute pulmonary findings. Labs 07/27/24 14:06 07/27/24 14:06 Labs: Laboratory Results - last 24 hr 07/27/24 07/27/24 07/27/24 14:06 14:56 16:36 WBC 7.18 RBC 3.69 L Hgb 12.5 L Hct 36.8 L MCV 100 H MCH 33.9 H MCHC 34.0 RDW 12.3 Plt Count 179 MPV 11.0 Immature Gran % 0.3 Neutrophils % 76.6 Lymphocytes % 15.5 Monocytes % 5.6 Eosinophils % 1.4 Basophils % 0.6 Nucleated RBC % 0.0 Absolute Neutrophils 5.51 Absolute Lymphocytes 1.11 L Absolute Monocytes 0.40 Absolute Eosinophils 0.10 Absolute Basophils 0.04 PT 10.8 INR 1.1 APTT 23.2 L Sodium 140 Potassium 3.6 Chloride 104 Carbon Dioxide 23.1 Anion Gap 12.9 H BUN 14 Creatinine 1.4 H Est GFR (CKD-EPI 2020) 52.09 Glucose 188 H Calcium 10.1 Magnesium 1.4 L Total Bilirubin 0.82 AST 15 ALT 24 Alkaline Phosphatase 84 Troponin I High Sens 95 H* 101 H* 124 H* NT-Pro-B Natriuret Pep 1947 H Total Protein 8.9 H Albumin 4.3 TSH 11.71 H Free T4 0.81 Urine Color Urine Clarity Urine pH Ur Specific [place] Urine Protein Urine Ketones Urine Blood Urine Nitrite Urine Bilirubin Urine Urobilinogen Ur Leukocyte Esterase Urine RBC Urine WBC Ur Epithelial Cells Urine Crystals Urine Bacteria Urine Casts Urine Mucus Urine Other Ur Culture Indicated? Urine Glucose 07/27/24 17:35 WBC RBC Hgb Hct MCV MCH MCHC RDW Plt Count MPV Immature Gran % Neutrophils % Lymphocytes % Monocytes % Eosinophils % Basophils % Nucleated RBC % Absolute Neutrophils Absolute Lymphocytes Absolute Monocytes Absolute Eosinophils Absolute Basophils PT INR APTT Sodium Potassium Chloride Carbon Dioxide Anion Gap BUN Creatinine Est GFR (CKD-EPI 2020) Glucose Calcium Magnesium Total Bilirubin AST ALT Alkaline Phosphatase Troponin I High Sens NT-Pro-B Natriuret Pep Total Protein Albumin TSH Free T4 Urine Color Yellow Urine Clarity Clear Urine pH 5.5 Ur Specific [place] 1.015 Urine Protein Negative Urine Ketones Negative Urine Blood Trace-intact H Urine Nitrite Negative Urine Bilirubin Negative Urine Urobilinogen 0.2 Ur Leukocyte Esterase Moderate H Urine RBC 0-2 Urine WBC 10-20 H Ur Epithelial Cells Few Urine Crystals Negative Urine Bacteria Rare Urine Casts Negative Urine Mucus Negative Urine Other Moderate Yeast Ur Culture Indicated? Yes Urine Glucose Negative Last Vital Signs Temp 36.4 C 07/27/24 13:33 Pulse 101 H 07/27/24 14:57 Resp 22 07/27/24 14:57 BP 120/63 07/27/24 13:33 Pulse Ox 97 07/27/24 14:57 Time Spent Time spent with Patient: >75 minutes Time was spent: preparing to see the patient(eg.review tests), obtaining and/or reviewing separately otained hiistory, ordering medications,tests, procedures, referring, communicating with other health ambulatory care, indepentently interpreting results, counseling the patient and care coordination
[2024-07-27 19:50] LABS: Magnesium 1.4 mg/dL (1.8-2.4)
--- NOTE | 2024-07-27 20:10 | W.PCEDHO ---
Registration Status: Primary Language: Preferred Language: ED Information & Data Chief Complaint SOB 07/27/24 14:08 Triage Note Pt brought down from cardiac 07/27/24 13:33 rehab after being unable to breath (SOB) and weakness. Resting HR = 120. EF 38. Pt is a MWF cardiac rehab patient. quality compliance consultant states that pt is not at baseline. Pt has an extensive cardiac hx to include recent NSTEMI. Pt SOB during triage. Pt states he was putting wood in a wheel capitan grande when he began to feel SOB. Medical / Surgical History (Last Reviewed 07/27/24 @ 18:42 by Gómez Fonseca) Skin cancer Glaucoma Tendonitis of long head of biceps brachii of right shoulder Bursitis of right shoulder Esophagitis Subdural hemorrhage Abnormal colonoscopy Inguinal hernia of left side without obstruction or gangrene COPD (chronic obstructive pulmonary disease) Essential hypertension GERD (gastroesophageal reflux disease) Ulcerative colitis DM2 (diabetes mellitus, type 2) Skin cancer, basal cell (10/08/16) (Last Reviewed 07/27/24 @ 18:42 by Gómez Fonseca) History of cataract surgery History of esophagogastroduodenoscopy (EGD) (~06/28/21) History of herniorrhaphy (10/19/18) History of appendectomy History of open reduction and internal fixation (ORIF) procedure Colonoscopy - MAC Cholecystectomy Most Recent Vital Signs Temperature 36.4 C 07/27/24 13:33 Temperature Source Oral 07/27/24 13:33 Pulse 101 H 07/27/24 14:57 Respiratory Rate 22 07/27/24 14:57 Respiratory Effort Short of Breath, Pursed Lip 07/27/24 14:57 Respiratory Depth Normal 07/27/24 14:57 Respiratory Pattern Normal 07/27/24 14:57 Blood Pressure 120/63 07/27/24 13:33 Blood Pressure Position Sitting 07/27/24 13:33 Pulse Oximetry 97 07/27/24 14:57 Oxygen Delivery Method Room Air 07/27/24 14:57 Oxygen Flow Rate 0 07/27/24 14:57 Pain Level 4 07/27/24 14:57 Allergies hornet venom Allergy (Severe, Verified 07/27/24 13:41) Anaphylaxis has epi-pen amitriptyline Allergy (Verified 07/27/24 13:41) Hives cephalexin (From Keflex) Adverse Reaction (Intermediate, Verified 07/27/24 13:41) headaches empagliflozin (From BitXdibeModel) Adverse Reaction (Intermediate, Verified 07/27/24 13:41) Yeast infection finasteride (From Fooalacar) Adverse Reaction (Intermediate, Verified 07/27/24 13:41) testicle pain Tetracyclines Adverse Reaction (Intermediate, Verified 07/27/24 13:41) NAUSEA erythromycin base Adverse Reaction (Unknown, Verified 07/27/24 13:41) NAUSEA Active Medications Generic Name Dose Route Start Last Admin Trade Name Freq PRN Reason Stop Dose Admin Heparin Sodium/Sodium Chloride 25,000 unit in 250 mls @ 10 mls/hr 07/27/24 17:15 07/27/24 17:47 IV 1,000 units/hr INFUSION JANY 10 mls/hr Administration Protocol 1,000 UNITS/HR IV IV Catheter Type [Left Forearm Saline Lock ] IV Catheter Type [Left Peripheral IV Antecubital] IV Catheter Gauge [Left 20 Forearm] IV Catheter Gauge [Left 18 Antecubital] Diagnostics 07/27/24 07/27/24 07/27/24 Range/Units 17:35 16:36 14:56 WBC (4.4-10.8) 10^3/uL RBC (4.36-5.78) 10^6/uL Hgb (13.5-17.5) g/dL Hct (40.0-50.0) % MCV (80-95) fL MCH (27.0-33.0) pg MCHC (32.0-36.0) % RDW (11.8-14.1) % Plt Count (130-400) 10^3/uL MPV (8.0-11.0) fL Immature Gran % % Neutrophils % % Lymphocytes % % Monocytes % % Eosinophils % % Basophils % % Nucleated RBC % (0.0-0.3) % Absolute Neutrophils (1.2-6.7) 10^3/uL Absolute Lymphocytes (1.2-3.4) 10^3/uL Absolute Monocytes (0.1-0.8) 10^3/uL Absolute Eosinophils (0.0-0.7) 10^3/uL Absolute Basophils (0.0-0.2) 10^3/uL PT (9.1-11.1) sec INR (0.9-1.1) APTT (23.6-32.8) sec Sodium (136-145) mmol/L Potassium (3.5-5.1) mmol/L Chloride (98-107) mmol/L Carbon Dioxide (21.0-32.0) mmol/L Anion Gap (3-11) mmol/L BUN (7-18) mg/dL Creatinine (0.70-1.30) mg/dL Est GFR (CKD-EPI 2020) (mL/min/1.73m2) Glucose (74-106) mg/dL Calcium (8.5-10.1) mg/dL Magnesium (1.8-2.4) mg/dL Total Bilirubin (0.2-1.0) mg/dL AST (15-37) U/L ALT (16-63) U/L Alkaline Phosphatase (46-116) U/L Troponin I High Sens 124 H* 101 H* (< or =60) ng/L NT-Pro-B Natriuret Pep (<300) pg/mL Total Protein (6.4-8.2) g/dL Albumin (3.4-5.0) g/dL TSH (0.36-3.74) uIU/mL Free T4 (0.76-1.46) ng/dL Urine Color Yellow (Yellow) Urine Clarity Clear (Clear) Urine pH 5.5 (5-8) Ur Specific Higgins 1.015 (1.005-1.025) Urine Protein Negative (Neg-Trace) mg/dL Urine Ketones Negative (Negative) mg/dL Urine Blood Trace-intact H (Negative) Urine Nitrite Negative (Negative) Urine Bilirubin Negative (Negative) Urine Urobilinogen 0.2 (Up to 0.2) mg/dL Ur Leukocyte Esterase Moderate H (Negative) Urine RBC 0-2 (0-2) HPF Urine WBC 10-20 H (0-5) HPF Ur Epithelial Cells Few (Negative) HPF Urine Crystals Negative (Negative) HPF Urine Bacteria Rare (Negative) HPF Urine Casts Negative (Negative) LPF Urine Mucus Negative (Negative) Urine Other Moderate Yeast (Negative) Ur Culture Indicated? Yes Urine Glucose Negative (Negative) mg/dL 07/27/24 07/27/24 Range/Units 14:06 14:01 WBC 7.18 (4.4-10.8) 10^3/uL RBC 3.69 L (4.36-5.78) 10^6/uL Hgb 12.5 L (13.5-17.5) g/dL Hct 36.8 L (40.0-50.0) % MCV 100 H (80-95) fL MCH 33.9 H (27.0-33.0) pg MCHC 34.0 (32.0-36.0) % RDW 12.3 (11.8-14.1) % Plt Count 179 (130-400) 10^3/uL MPV 11.0 (8.0-11.0) fL Immature Gran % 0.3 % Neutrophils % 76.6 % Lymphocytes % 15.5 % Monocytes % 5.6 % Eosinophils % 1.4 % Basophils % 0.6 % Nucleated RBC % 0.0 (0.0-0.3) % Absolute Neutrophils 5.51 (1.2-6.7) 10^3/uL Absolute Lymphocytes 1.11 L (1.2-3.4) 10^3/uL Absolute Monocytes 0.40 (0.1-0.8) 10^3/uL Absolute Eosinophils 0.10 (0.0-0.7) 10^3/uL Absolute Basophils 0.04 (0.0-0.2) 10^3/uL PT 10.8 (9.1-11.1) sec INR 1.1 (0.9-1.1) APTT 23.2 L (23.6-32.8) sec Sodium 140 (136-145) mmol/L Potassium 3.6 (3.5-5.1) mmol/L Chloride 104 (98-107) mmol/L Carbon Dioxide 23.1 (21.0-32.0) mmol/L Anion Gap 12.9 H (3-11) mmol/L BUN 14 (7-18) mg/dL Creatinine 1.4 H (0.70-1.30) mg/dL Est GFR (CKD-EPI 2020) 52.09 (mL/min/1.73m2) Glucose 188 H (74-106) mg/dL Calcium 10.1 (8.5-10.1) mg/dL Magnesium 1.4 L 1.4 L (1.8-2.4) mg/dL Total Bilirubin 0.82 (0.2-1.0) mg/dL AST 15 (15-37) U/L ALT 24 (16-63) U/L Alkaline Phosphatase 84 (46-116) U/L Troponin I High Sens 95 H* (< or =60) ng/L NT-Pro-B Natriuret Pep 1947 H (<300) pg/mL Total Protein 8.9 H (6.4-8.2) g/dL Albumin 4.3 (3.4-5.0) g/dL TSH 11.71 H (0.36-3.74) uIU/mL Free T4 0.81 (0.76-1.46) ng/dL Urine Color (Yellow) Urine Clarity (Clear) Urine pH (5-8) Ur Specific Higgins (1.005-1.025) Urine Protein (Neg-Trace) mg/dL Urine Ketones (Negative) mg/dL Urine Blood (Negative) Urine Nitrite (Negative) Urine Bilirubin (Negative) Urine Urobilinogen (Up to 0.2) mg/dL Ur Leukocyte Esterase (Negative) Urine RBC (0-2) HPF Urine WBC (0-5) HPF Ur Epithelial Cells (Negative) HPF Urine Crystals (Negative) HPF Urine Bacteria (Negative) HPF Urine Casts (Negative) LPF Urine Mucus (Negative) Urine Other (Negative) Ur Culture Indicated? Urine Glucose (Negative) mg/dL 07/27/24 17:35 Urine Culture - Pending Urine - Reflex from Ua Intake and Output - 24 Hour Total 07/27/24 13:25 thru 07/27/24 18:05 Intake Total 100 Balance 100 Weight 112.037 kg Intake: IV 100 Falls Risk Assessment History of Falls No History 07/27/24 13:42 Contributing Factors Unstable,Impairments 07/27/24 13:42 Ambulatory Aids Uses ambulatory device + 07/27/24 13:42 Tubes/Lines With any additional score 07/27/24 13:42 Gait Evaluation W/any additional score 07/27/24 13:42 Cognition No cognitive impairment 07/27/24 13:42 Fall Total Score 76 07/27/24 13:42 Level of Risk Maximum Risk 07/27/24 13:42 Problems (Last Reviewed 07/27/24 @ 18:42 by Gómez Fonseca) Non-ST elevation [place] (NSTEMI) (Acute) Hyperlipidemia (Chronic) v v v v v v v v v Sending and/or Receiving Nurses: Please use comment section below to note any information pertinent to the patient hand-off not included above. Information / Comments: Report received from: Julieta URIBE
--- OUTSIDE RECORDS SUMMARY | 2024-07-27 21:04 | XMS_ITS | Encounter Summary ---
Author Organization [facility] Address [address] [place] [address] Care Team Providers Care Home Sales Service Professional Name Role Phone More Fall MD Primary Care Provider Encounter Details Date Type Department Care Team (Late st Contact Info) Description 09/04/2016 Results Only [facility] [phone] More Fall MD [address] [place] [address] Social History Tobacco Use Types Packs/Day Years [...] ? NAYA RODRIGUEZ ? Accession #: ? [id number] ? : ? 1950 (Age: 66) ??M [...] 2:42 PM End of Report [facility] 09/04/2016 11:2 3 EDT 09/05/2016 11:23 EDT More Fall MD PATHOLOGY ORDERABLES [facility] [address] [place] [address] documented in this encounter Visit Diagnoses Not on filedocumented in this encounter Care Teams Home Sales Service Professional Relationship Specialty Start Date End Date More Fall MD PCP - General 03/18/16 documented as of this encounter
--- OUTSIDE RECORDS SUMMARY | 2024-07-27 21:04 | XMS_ITS | Referral Summary ---
Author Organization [facility] Address [address] [place] [address] Care Team Providers Care Java Software Engineer Name Role Phone Maximilian Fall MD Primary Care Provider Encounters Date Type Department Care Team Description 06/29/2024 Travel 06/29/2024 18:51 EDT - 06/29/2024 23:59 EDT Hospital Encounter [facility] Secondary Reads [place] Discharge Disposition: Home [...] from Last 3 Months Care Teams Java Software Engineer Relationship Specialty Start Date End Date Maximilian Fall MD PCP - General 03/18/16
--- OUTSIDE RECORDS SUMMARY | 2024-07-27 21:04 | XMS_ITS | Encounter Summary ---
Author Organization [facility] Address [address] [place] [address] Care Team Providers Care Rfid Specialist Name Role Phone Maximilian Fall MD Primary Care Provider [phone] Encounter Details Date Type Department Care Team (Late st Contact Info) Description 12/31/2017 Results Only [facility] [phone] Tamara Reza, [address] [place], [place] [phone] Social History Tobacco Use Types Packs/Day Years [...] ? NAYA RODRIGUEZ ? Accession #: ? [id number] ? : ? 1950 (Age: 67) ??M [...] [place] 01/02/2018 9:44 AM End of Report [facility] 12/31/2017 16:3 5 EST 01/01/2018 16:35 EST Tamara Reza DO PATHOLOGY ORDER ASHLIE [facility] [address] [place] [address] documented in this encounter Visit Diagnoses Not on filedocumented in this encounter Care Teams Rfid Specialist Relationship Specialty Start Date End Date Maximilian Fall MD PCP - General 03/18/16 documented as of this encounter
--- OUTSIDE RECORDS SUMMARY | 2024-07-27 21:04 | XMS_ITS | Encounter Summary ---
Author Organization [facility] Address [address] [place] [address] Care Team Providers Care Erecting Engineer Name Role Phone Maximilian Fall MD Primary Care Provider Encounter Details Date Type Department Care Team (Latest Contact Info) Description 12/31/2017 9:43 EST - 12/31/2017 23:59 EST Hospital Encounter [address] [address] Unknown, Provider, Discharge Disposition: Home or Self [...] on filedocumented in this encounter Care Teams Erecting Engineer Relationship Specialty Start Date End Date Maximilian Fall MD PCP - General 03/18/16 documented as of this encounter
--- OUTSIDE RECORDS SUMMARY | 2024-07-27 21:04 | XMS_ITS | Encounter Summary ---
Author Organization [facility] Address [facility] [place] [address] Care Team Providers Care Finishing Range Operator Name Role Phone Deacon Watters APRN Primary Care Provider [phone] Encounter Details Date Type Department Care Team (Late st Contact Info) Description 07/27/2024 Telephone Cardiology at [address] [phone] Judie Díaz APRN [facility] [place] [address] [place] [address] Social History Tobacco Use Types Packs/Day Years Used Date Smoking Tobacco: Former Cigarettes 4 30 1 12/01/1961 - 10/01/1992 Smokeless Tobacco: Former Chew Comments:Denies vaping Alcohol Use Standard Drinks/Week Comments Yes 0 (1 standard drink = 0.6 oz pur e alcohol) twice a year [facility] Utilities Answer Date Recorded In the past 12 months has [employer], gas, oil, or water [employer] threatened to shut off services in your [...] time in the past 12 [facility], were you homeless or living in a residential (including now)? No 07/01/2024 IPV Inpatient Questions [...] encounter Miscellaneous Notes * Telephone Encounter - Judie Díaz APRN - 07/27/2024 4:55 PM EDT Images from the original note were not included. 07/27/2024 Brian Rodriguez Initial Contact Date: 07/27/2024 Initial contact time: 4:55 PM Referring Provider: Dr. Carrillo Patient Location: [facility] ED Past Medical History: CAD s/p stent to mid-LCX 07/01/24 T2DM Presenting Symptoms per OSH: Presented to [facility] ED from Cardiac Rehab for complaints of exertional SOB today. Patient was recently admitted to [facility] in 06/2024 for NSTEMI s/p PCI o mid-LCX. Patient has been compliant with DAPT (ASAand Plavix) and states he hasn't missed any doses. Denies CP. Vitals: 120/63, HR 101, RR 19, sp02 97% Pertinent Diagnostic Findings: EKG 07/27/24 1409 NSR. PVCs, HR 95, no ischemia noted CXR 07/27/24 Unremarkable Labs: Mild hypomagnesemia - repleted with IV magnesium Trending troponins (95>100) 3rd troponin pending BNP ~2000 Past cardiac studies: Echo: 06/30/24 Conclusions -Left ventricular systolic function is moderately reduced. The left ventricular ejection fraction is 36% by Dowd's biplane. The anterolateral and inferolateral barahona are akinetic. The anterior wall is hypokinetic. -Right ventricle is mildly dilated. Systolic function is normal. -No significant valve disease. -See report for additional findings. No prior study is available. Cath 07/01/24 Hemodynamics: Left Heart Pressures Resting: Syst Diast EDP a v m Ao 77 48 58 LV 81 10 Coronary Angiography: Dominance: Right Left Main There was mild diffuse (<=25% stenosis) disease of the entire vessel segment of the left main artery. Left Anterior Descending There was mild diffuse (<=25% stenosis) disease of the entire vessel segment of the left anterior descending artery (LAD). Left Circumflex There was a 90% stenosis of the mid segment of the left circumflex artery (LCX). Right Coronary Artery There was mild diffuse (<=25% stenosis) disease of the entire vessel segment of the right coronary artery (RCA). Indication for Intervention: Coronary intervention was indicated for primary therapy for an acute myocardial infarction. The priority for the procedure was Urgent. The NCDR indication for the procedure was NSTE-ACS. Syntax Score was Low. Intervention Summary: Left Circumflex Artery Mid 90% Stent insertion was performed on the 90% stenosis in the mid segment of the LCX. This was a de monalisa lesion. According to the ACC/AHA classification system, this lesion was a type B2 high risk lesion. Management of threatened closure was the indication for stent insertion. This was the culprit lesion. A guidewire was placed across this lesion. Vessel flow pre intervention was PAYAL 3. Lesion length was 20mm. The lesion involves a bifurcation with the OM2. This bifurcation lesion was treated with a single stent, side branch jailed and not treated technique. Stent insertion was accomplished through a 6 Fr. EBU 3.75 guide. The lesion was predilated with a 2.50mm EUPHORA 15 MM balloon with a maximum inflation pressure of 14 atmospheres. A premounted 2.75 x 22 mm Rodo Arnold (EILEEN) was deployed with a maximum inflation pressure of 12 atmospheres. The final outcome was defined as successful. There was no residual stenosis following this intervention. The final PAYAL flow was 3. Vascular Access: Vascular Access Angiogram: A selective angiogram at the right femoral artery revealed no significant obstructive disease. Vascular Ultrasound: Ultrasound of the right femoral artery was used to guide access and showed vessel patent with no disease. Needle entry was observed. Vascular Access Management: Mechanical Compression of the right radial artery access site was performed. A 6 Fr Perclose was deployed at the right femoral artery access site. This device was successful. Dual Antiplatelet (DAPT) Recommendations: Drug eluting stent (EILEEN) inserted. P2Y12 Loading dose administered prior to arrival in the photographic laboratory technician. Recommended anti-platelet/anti-thrombotic regimen: Continue aspirin 81 mg daily. Continue clopidogrel 75 mg daily. These recommendations are made at the time of the intervention. Patient and provider preferences or a changing clinical situation may require modification of this regimen. Consult [facility] Interventional Cardiology for questions. This patient has a high DAPT score and may benefit from prolonged (12-30 months) dual antiplatelet therapy if the patient has completed 12 months of DAPT without having a major bleeding or ischemic event and the patient is NOT on chronic anticoagulation. This should be used for guidance in the overall conversation about prolonged dual antiplatelet therapy and not as a recommendation for or against any medical treatment. Consult http://tools.acc.org/DAPTriskapp/#!/content/calculator/ or [facility] Interventional Cardiology for questions Conclusions: * One vessel coronary artery disease (LCX) * Successful stent insertion of the mid LCX lesion * See Dual Antiplatelet (DAPT) Recommendations above OSH Interventions: IV magnesium IV diuresis Plan: Patient's shortness of breath less likely related to restenosis or thrombosis of recent cardiac stent placement given that he has been compliant with DAPT. His 3rd troponin is pending although previous troponins have been 95>100 (ULN 51). Patient's HS troponin-T last month in the presence of NSTEMI (1209>1234>1274) and would anticipate these levels similar if he restenosed. Cardiac catheterization report reviewed. Mild diffuse stenosis (less than 25%) to LAD and RCA territory. Patient's EKG is NSR with increased ectopy which could be related to slightly decreased magnesium level. IV magnesium repletion provided at OSH. Of note his LVEF was 36% on TTE from 06/2024 and his BNP is elevated. Recommend IV diuresis and evaluate for improvement in dyspnea. Above recommendations were based on my discussion with Dr. Carrillo; I have not personally interviewed or examined this patient. Advised to call the transfer center back with any changes in the patient condition. Judie Díaz APRN Pager #: [phone] 07/27/2024 4:56 PM documented in this encounter Plan of Treatment Upcoming Encounters Date Type Department Care Team (Late st Contact Info) Description 07/29/2024 Hospital Encounter Heart and Vascular Unit Level 4 [place] [phone] Faheem Joy MD [facility] [place] [address] 08/15/2024 9:00 AM EDT Office Visit Gastroenterology at [place] [phone] Dion Barlow MD [facility] [place] [address] 09/01/2024 9:40 AM EDT Office Visit Cardiology at [address] [phone] Franky Shaver MD [facility] [place] [address] 09/01/2024 11:20 AM EDT Office Visit Dermatology at [address] [phone] Gómez Mercer MD [facility] [place] [address] 09/21/2024 2:45 PM EDT Office Visit Pain and Spine Center at [place] [phone] Trung Hoyos MD [facility] [place] [address] documented as of this encounter Visit Diagnoses Not on filedocumented in this encounter Care Teams Finishing Range Operator Relationship Specialty Start Date End Date Deacon Watters APRN [address] [place] [address] PCP - General Family Medicine 02/17/22 documented as of this encounter
--- OUTSIDE RECORDS SUMMARY | 2024-07-27 21:04 | XMS_ITS | Encounter Summary ---
Author Organization [facility] Address [address] [place] [address] Care Team Providers Care Firestopper Installer Name Role Phone Sharad Leon MD Primary Care Provider Unavail able Encounter Details Date Type Department Care Team (Latest Contact Info) Description 03/14/2016 7:58 EDT - 03/14/2016 23:59 EDT Hospital Encounter [address] [address] Unknown, Provider, Discharge Disposition: Home or Self [...] on filedocumented in this encounter Care Teams Firestopper Installer Relationship Specialty Start Date End Date Sharad Leon MD PCP - General 12/07/09 03/17/16 documented as of this encounter
--- OUTSIDE RECORDS SUMMARY | 2024-07-27 21:04 | XMS_ITS | Encounter Summary ---
Author Organization [facility] Address [address] [place] [address] Care Team Providers Care Area Operations Manager Name Role Phone Maximilian Fall MD Primary Care Provider [phone] Reason for Referral * (Routine/Next Available) - Receiving Office to Obtain Authorization Specialty Diagnoses / Procedures Referred By Contac t Referred To Contact Procedures XR OUTSIDE IMAGES CHEST Unknown, ProviderMD Referral ID Status Reason Start Date Expiration Date Visits Requested Visits Authorized [id number] Receiving Office to Obtain Authorization 06/29/2024 1 1 Reason for Visit * (Routine/Next Available) - Receiving Office to Obtain Authorization Specialty Diagnoses / Procedures Referred By Contac t Referred To Contact Procedures XR OUTSIDE IMAGES CHEST Unknown, MD [place] Referral ID Status Reason Start Date Expiration Date Visits Requested Visits Authorized [id number] Receiving Office to Obtain Authorization 06/29/2024 1 1 Encounter Details Date Type Department Care Team (Latest Contact Info) Description 06/29/2024 18:51 EDT - 06/29/2024 23:59 EDT Hospital Encounter [facility] Secondary Reads [place] Discharge Disposition: Home [...] on filedocumented in this encounter Care Teams Area Operations Manager Relationship Specialty Start Date End Date Maximilian Fall MD PCP - General 03/18/16 documented as of this encounter
--- OUTSIDE RECORDS SUMMARY | 2024-07-27 21:04 | XMS_ITS | Encounter Summary ---
Author Organization [facility] Address [address] [place] [address] Care Team Providers Care Parachutist/Combatant Diver Qualified Name Role Phone More Naylor MD Primary Care Provider [phone] Encounter Details Date Type Department Care Team (Late st Contact Info) Description 10/30/2016 Results Only [facility] [phone] Tamara Reza, [address] [place], [place] [phone] Social History Tobacco Use Types Packs/Day Years [...] ? NAYA RODRIGUEZ ? Accession #: ? [id number] ? : ? 1950 (Age: 66) ??M [...] tumor. This sample was processed at the [facility]. ??The slides were reviewed and the final diagnosis was made at [facility], [address] [place] [address]. ([place] License Number [id number]) Document reviewed and electronically signed by: AMIE [...] prior to verbal report. ??Procedure performed at [facility]. ??Staining of frozen section is adequate. [...] prior to verbal report. ??Procedure performed at [facility]. Staining of frozen section is adequate. [...] [place] 11/03/2016 3:11 PM End of Report [facility] 10/30/2016 11:3 0 EST 11/01/2016 11:30 EST Tamara Reza DO PATHOLOGY ORDER ASHLIE [facility] [address] [place] [address] documented in this encounter Visit Diagnoses Not on filedocumented in this encounter Care Teams Parachutist/Combatant Diver Qualified Relationship Specialty Start Date End Date More Naylor MD PCP - General 03/18/16 documented as of this encounter
--- OUTSIDE RECORDS SUMMARY | 2024-07-27 21:04 | XMS_ITS | Encounter Summary ---
Author Organization [facility] Address [address] [place] [address] Care Team Providers Care Industrial Technology Education Teacher Name Role Phone Maximilian Fall MD Primary Care Provider [phone] Encounter Details Date Type Department Care Team (Late st Contact Info) Description 06/28/2021 Lab Requisition [facility] Pathology & Laboratory Medicine - [address] [address] Bettina Shipman, DO [address] [place] [address] Encounter for other general examination Social History [...] explore management options, if applicable. 07/02/2021 9:15 [facility] Final Diagnosis A. [...] with no significant diagnostic abnormalities. 07/02/2021 9:15 [facility] Attestation There was significant resident/fellow involvement in the diagnostic evaluation of this case. By the signature below, the attending physician certifies that they have personally conducted a gross and/or microscopic examination of the described specimens and rendered or confirmed the above diagnosis. 07/02/2021 9:15 [facility] at 0915 Clinical History Dysphagia 07/02/2021 9:15 [facility] Gross Description A. [...] Destin Barros 06/29/2021 11:30 07/02/2021 9:15 EDT [facility] Resident/Bridger w: Gutierrez Castro DO 07/02/2021 9:15 EDT [facility] Performing Lab [facility] 9:15 EDT [facility] Scanned Images 07/02/2021 9:15 EDT [facility] Tissue ENTIRE ESOPHAGUS [...] 22:58 EDT Bettina Shipman DO PATHOLOGY ORDERABLES [facility] [address] [place] [address] documented in this encounter Visit Diagnoses Diagnosis Encounter for other general examination documented in this encounter Care Teams Industrial Technology Education Teacher Relationship Specialty Start Date End Date Maximilian Fall MD PCP - General 03/18/16 documented as of this encounter
--- OUTSIDE RECORDS SUMMARY | 2024-07-27 21:04 | XMS_ITS | Encounter Summary ---
Author Organization [facility] Address [address] [place] [address] Care Team Providers Care Blanchard Grinder Operator Name Role Phone Maximilian Fall MD Primary Care Provider [phone] Encounter Details Date Type Department Care Team (Late st Contact Info) Description 03/10/2023 Lab Requisition [facility] Pathology & Laboratory Medicine - [address] [address] Rodrick Florentino MD [address] [place] [phone] Other microscopic hematuria Social History Tobacco [...] Name Priority Date/Time Associated Diagnosis Comments NON BONE CHAR KILN OPERATOR/FNA CYTOLOGY Today 03/09/2023 10:55 EDT Other microscopic hematuria documented in this encounter Results * NON BONE CHAR KILN OPERATOR/FNA CYTOLOGY (03/09/2023 10:55 EDT) Note to Patient The following pathology results have been interpreted by your pathologist and may be available to you before your health provider has had the opportunity to review them. Please allow time for your provider to receive these results and explore management options, if applicable. 03/12/2023 7:50 [facility] Final Diagnosis URINE, CATHETERIZED, CYTOLOGIC EVALUATION: - Negative for high grade urothelial carcinoma. - Reactive urothelial cells, abundant acute inflammatory cells and lymphocytes present. 03/12/2023 7:50 [facility] Attestation By the signature below, the attending physician certifies that they have personally conducted a gross and/or microscopic examination of the described specimens and rendered or confirmed the above diagnosis. 03/12/2023 7:50 [facility] at 0750 Clinical History Hematuria; R31.29 03/12/2023 7:50 [facility] Gross Description A. 160cc's of clear pale pink fluid (Cytolyt added) were received and processed by selective cellular enhancement technique. 03/12/2023 7:50 [facility] Performing Lab [facility] 03/12/2023 7:50 [facility] Scanned Images 03/12/2023 7:50 [facility] Urine URINE SPECIMEN COLLECTION, CATHETERIZED / Unknown 03/09/2023 10:55 EDT 03/10/2023 6:16 EDT Rodrick Florentino MD PATHOLOGY ORDERAB LES Performing Organization Address City/State/[facility] Co de Phone Number [facility] [address] [place] [address] documented in this encounter Visit Diagnoses Diagnosis Other microscopic hematuria documented in this encounter Care Teams Blanchard Grinder Operator Relationship Specialty Start Date End Date Mxaimilian Fall MD PCP - General 03/18/16 documented as of this encounter
--- OUTSIDE RECORDS SUMMARY | 2024-07-27 21:04 | XMS_ITS | Clinical Summary ---
Author Organization [facility] Address [address] [place] [address] Care Team Providers Care Push Connector Assembler Name Role Phone Maximilian Fall MD Primary Care Provider [phone] Encounters Date Type Department Care Team Description 06/29/2024 18:51 EDT - 06/29/2024 23:59 EDT Hospital Encounter [facility] Secondary Reads [place] Discharge Disposition: Home [...] DERABLES from Last 3 Months Care Teams Push Connector Assembler Relationship Specialty Start Date End Date Maximilian Fall MD PCP - General 03/18/16
--- OUTSIDE RECORDS SUMMARY | 2024-07-27 21:04 | XMS_ITS | Encounter Summary ---
Author Organization [facility] Address [address] [place] [address] Care Team Providers Care Career And Transition Teacher Name Role Phone Maximilian Fall MD Primary Care Provider [phone] Encounter Details Date Type Department Care Team (Late st Contact Info) Description 08/15/2022 Lab Requisition [facility] Pathology & Laboratory Medicine - [address] [address] Zeyad Hudson, [address] [place] [address] Neoplasm of unspecified behavior of bone, soft [...] explore management options, if applicable. 08/18/2022 11:15 [facility] Final Diagnosis A. SKIN OF NASAL DORSUM, RIGHT, SHAVE BIOPSY: - Basal cell carcinoma, infiltrative type. - Basal cell carcinoma present at peripheral and deep tissue edges. 08/18/2022 11:15 [facility] Attestation By the signature below, the attending physician certifies that they have 1) personally conducted a gross and/or microscopic examination of the described specimen(s), and/or personally interpreted the results of laboratory testing of the described specimen(s), and 2) personally rendered or confirmed the above diagnosis. 08/18/2022 11:15 [facility] at 1114 Microscopic [...] of the islands and stroma. 08/18/2022 11:15 [facility] Clinical History History BCC; clinical diagnosis code: D49.2 08/18/2022 11:15 [facility] Gross Description A. [...] A1-A3. TOLU CHRIS 08/16/2022 10:29 08/18/2022 11:15 [facility] Performing Lab [facility] 08/18/2022 11:15 [facility] Scanned Images 08/18/2022 11:15 [facility] Tissue TISSUE SPECIMEN FROM SKIN / Unknown 08/14/2022 10:25 EDT 08/15/2022 21:12 EDT Zeyad MIRAMONTES PATHOLOGY ORDERABL ES [facility] [address] [place] [address] documented in this encounter Visit Diagnoses Diagnosis Neoplasm of unspecified behavior of bone, soft tissue, and skin documented in this encounter Care Teams Career And Transition Teacher Relationship Specialty Start Date End Date Maximilian Fall MD PCP - General 03/18/16 documented as of this encounter
--- OUTSIDE RECORDS SUMMARY | 2024-07-27 21:04 | XMS_ITS | Encounter Summary ---
Author Organization [facility] Address [address] [place] [address] Care Team Providers Care Animal Trainer Name Role Phone Maximilian Fall MD Primary Care Provider [phone] Encounter Details Date Type Department Care Team (Late st Contact Info) Description 11/10/2022 Lab Requisition [facility] Pathology & Laboratory Medicine - [address] [id number] Outr Resulting Lab, Provider Social History Tobacco [...] Salmonella PCR Negative Negative 11/11/2022 0:14 EST [facility] Shigella/Enteroin vasive E. coli Negative Negative 11/11/2022 0:14 EST [facility] HN LAB CAMPYLOBACTER PCR Negative Negative 11/11/2022 0:14 EST [facility] Shiga Toxin PCR Negative Negative 2 0:14 EST [facility] Feces SPECIMEN FROM RECTUM / Unknown 11/09/2022 10:00 EST 11/10/2022 17:36 EST Provider Outr Resulting Lab MICROBIOLOGY - GENERAL ORDERABLES Performing Organization Address City/State/[facility] Co de Phone Number [facility] [address] [place] [address] documented in this encounter Visit Diagnoses Not on filedocumented in this encounter Care Teams Animal Trainer Relationship Specialty Start Date End Date Maximilian Fall MD PCP - General 03/18/16 documented as of this encounter
--- OUTSIDE RECORDS SUMMARY | 2024-07-27 21:04 | XMS_ITS | Encounter Summary ---
Author Organization [facility] Address [address] [place] [address] Care Team Providers Care Radioactivity Technician Name Role Phone Sharad Mcleod MD Primary Care Provider Unavail able Encounter Details Date Type Department Care Team (Late st Contact Info) Description 04/08/2010 Results Only [facility] Laboratory Services - [facility] [address] [place], [place] [id number] Marcelo Agustin, DO [address] [place], [place] [address] Social History Tobacco Use Types Packs/Day Years [...] ? RODRIGUEZ, BRIAN ? Accession #: ? [id number] ? : ? 1950 (Age: 59) ??M [...] cm, submitted in toto as (D). (Davina Ordoñez)/[facility] ? End of Report ? [facility] 04/08/2010 04/09/2010 16: 29 EDT Marcelo Agustin DO PATHOLOGY ORDER ASHLIE Performing Organization Address City/State/[facility] Co de Phone Number [facility] [address] [place] [address] documented in this encounter Visit Diagnoses Not on filedocumented in this encounter Care Teams Radioactivity Technician Relationship Specialty Start Date End Date Sharad Mcleod MD PCP - General 12/07/09 03/17/16 documented as of this encounter
--- OUTSIDE RECORDS SUMMARY | 2024-07-27 21:04 | XMS_ITS | Encounter Summary ---
Author Organization [facility] Address [facility] [place] [address] Care Team Providers Care Laborer Marine Terminal Name Role Phone Deacon Watters APRN Primary Care Provider [phone] Reason for Visit * Reason Onset Date Comments Referral 07/05/2024 Coronary Artery Disease 07/05/2024 Encounter Details Date Type Department Care Team (Late st Contact Info) Description 07/05/2024 Telephone Cardiology at [address] [address] Lesa Duncan, squad boss; Coronary Artery Disease Social History Tobacco Use Types Packs/Day Years Used Date Smoking Tobacco: Former Cigarettes 4 30 1 12/01/1961 - 10/01/1992 Smokeless Tobacco: Former Chew Comments:Denies vaping Alcohol Use Standard Drinks/Week Comments Yes 0 (1 standard drink = 0.6 oz pur e alcohol) twice a year [facility] Utilities Answer Date Recorded In the past 12 months has e [employer], gas, oil, or water [employer] threatened to shut off services in your [...] a nursing home (including now)? No 07/01/2024 IPV Inpatient [...] were not included. Heart and Vascular Clinics [facility] Cardiology Clinic [address] [place] [address] [place] [address] Brian Rodriguez was discharged from [facility] with a referral to see central processing tech Dr. Franky Shaver following NSTEMI June 30. Brian Rodriguez is a 74 y.o. male with history of HTN, HLD, migraines, DM2, and UC who presented to [facility] for chest pain and was [...] 3.66) performed by Dion Osullivan MD at [facility] ENDOSCOPY PRO COLONOSCOPY, BIOPSY N/A 02/22/2019 COLONOSCOPY FLEXIBLE, WITH BX (WRVU 3.66) performed by Dion Osullivan MD at [facility] ENDOSCOPY PRO COLONOSCOPY, BIOPSY N/A 03/28/2022 COLONOSCOPY FLEXIBLE, WITH BX (WRVU 3.66) performed by Mona Turner MD at [facility] ENDOSCOPY PRO COLONOSCOPY, BIOPSY N/A 01/20/2024 COLONOSCOPY FLEXIBLE, WITH BX (WRVU 3.56) performed by Anthony Hamlin MD at [facility] ENDOSCOPY PRO COLONOSCOPY, DIAGNOSTIC 11/27/2011 COLONOSCOPY, DIAGNOSTIC performed by Dion OSULLIVAN at [facility] ENDOSCOPY PRO COLONOSCOPY, DIAGNOSTIC 07/13/2014 COLONOSCOPY, DIAGNOSTIC performed by Dion Osullivan MD at [facility] ENDOSCOPY PRO COLONOSCOPY, REMV LESN, SNARE N/A 02/22/2019 COLONOSCOPY, POLYPECTOMY, REMOVAL LESION BY SNARE (WRVU 4.67) performed by Dion Osullivan MD at [facility] ENDOSCOPY PRO COLONOSCOPY, REMV LESN, SNARE N/A 02/26/2021 COLONOSCOPY, POLYPECTOMY, REMOVAL LESION BY SNARE (WRVU 4.67) performed by Dion Osullivan MD at [facility] ENDOSCOPY PRO SIGMOIDOSCOPY, DIAGNOSTIC 03/16/2012 FLEXIBLE SIGMOIDOSCOPY performed by YUDI MALLOY at [facility] ENDOSCOPY PRO UPPER GI ENDOSCOPY, DIAGNOSTIC N/A 04/28/2019 EGD, UPPER GI ENDOSCOPY performed by Iza Coates MD at [facility] ENDOSCOPY UPPER GI ENDOSCOPY, EXAM 10/01/2012 UPPER GI ENDOSCOPY performed by Dion OSULLIVAN at [facility] Current Medications. dicyclomine (Bentyl) 20 [...] this visit. * Telephone Encounter - Lesa Duncan, RN - 07/05/2024 5:11 PM EDT ----- Message from Meli Mcginnis sent at 07/04/2024 1:13 PM EDT ----- Catlen at Cardiology Inpt service left a message today at 12:41 pm She said he was being discharged and they were submitting a referral for the patient to see Cardiology here in [place]. documented in this encounter Plan of Treatment Upcoming Encounters Date Type Department Care Team (Late st Contact Info) Description 07/29/2024 Hospital Encounter Heart and Vascular Unit Level 4 [place] [address] Faheem Joy MD [facility] CARDIOLOGY [place] [id number] 08/15/2024 9:00 AM EDT Office Visit [place] [address] Dion Osullivan MD [facility] [place] [address] 09/01/2024 9:40 AM EDT Office Visit Cardiology at [address] [place] [phone] Franky Shaver MD [facility] [place] [address] 09/01/2024 11:20 AM EDT Office Visit Dermatology at [facility] [address] [place] [address] Gómez Mercer MD [facility] DR ED[place] [address] 09/21/2024 2:45 PM EDT Office Visit Pain and Spine Center at [address] [place] [address] Trung Hoyos MD [facility] [place] [address] documented as of this encounter Visit Diagnoses Not on filedocumented in this encounter Care Teams Laborer Marine Terminal Relationship Specialty Start Date End Date Deacon Watters APRN [address] [place] [address] PCP - General Family Medicine 02/17/22 documented as of this encounter
--- OUTSIDE RECORDS SUMMARY | 2024-07-27 21:04 | XMS_ITS | Encounter Summary ---
Author Organization [facility] Address [address] [place] [address] Care Team Providers Care Elder Counselor Name Role Phone Maximilian Fall MD Primary Care Provider [phone] Encounter Details Date Type Department Care Team (Late st Contact Info) Description 02/17/2023 Lab Requisition [facility] Pathology & Laboratory Medicine - [address] [address] Outr Resulting Lab, Provider Social History Tobacco [...] Salmonella PCR Negative Negative 02/18/2023 11:17 EDT [facility] Shigella/Enteroin vasive E. coli Negative Negative 02/18/2023 11:17 EDT [facility] HN LAB CAMPYLOBACTER PCR Negative Negative 02/18/2023 11:17 EDT [facility] Shiga Toxin PCR Negative Negative 03/29/202 3 11:17 EDT [facility] Feces SPECIMEN FROM RECTUM / Unknown 02/17/2023 7:00 EDT 02/17/2023 22:14 EDT Provider Outr Resulting Lab MICROBIOLOGY - GENERAL ORDERABLES Performing Organization Address City/State/[facility] Co de Phone Number [facility] [address] [place] [address] documented in this encounter Visit Diagnoses Not on filedocumented in this encounter Care Teams Elder Counselor Relationship Specialty Start Date End Date Maximilian Fall MD PCP - General 03/18/16 documented as of this encounter
--- OUTSIDE RECORDS SUMMARY | 2024-07-27 21:04 | XMS_ITS | Clinical Summary ---
Author Organization [facility] Address [facility] [place] [address] Care Team Providers Care Oyster Floater Name Role Phone Deacon Watters APRN Primary Care Provider [phone]- [phone] Allergies Active Allergy Reactions Criticality Noted Date [...] 10/01/2011 Overview (12/06/2023): Colonoscopy 04/08/10 (Dr. Gomes [facility]) - inflammation only within the rectum and sigmoid; extent of the exam was to the hepatic flexure; biopsies proximal to the sigmoid nl Repeat exam 11/27/11 ([facility] mildly active colitis in the sigmoid colon [...] Encounters Date Type Department Care Team Description 07/27/2024 Telephone Cardiology at [address] [address] Judie Díaz APRN 07/27/2024 [place] [address] 07/23/2024 Refill Dermatology at [place] [address] [place] [phone] Gómez Mercer MD Tinea cruris 07/05/2024 Abstract Cardiology at [address] [address] Lesa Duncan, RN 07/05/2024 Telephone Cardiology at [address] [address] Lesa Duncan, library aide; Coronary Artery Disease 07/01/2024 2:30 PM EDT - 07/01/2024 3:30 PM ED[place] [address] Lizzette Hayden MD CARDIAC CATHETERIZATION 07/01/2024 [place] [address] Dion Barlow MD 06/30/2024 3:44 PM EDT - 07/04/2024 3:25 PM EDT Hospital Encounter Heart and Vascular Unit Level 3 [place] [address] Triston Godinez MD Welch, Terrence D, MD NSTEMI (non-ST elevated myocardial infarction) (Primary Dx) Discharge Disposition: Home 06/29/2024 7:25 PM EDT Ancillary Procedure [place] [address] Deacon Watters, FARM APPRAISER 06/29/2024 [place] [address] Ramakrishna Elliott MD 06/29/2024 External [place] [address] 06/22/2024 8:00 AM EDT Office Visit [place] [address] Trung Hoyos MD Radiculopathy of cervical region (Primary Dx) 06/22/2024 Travel 06/09/2024 [place] [address] Marcelle Weinberg, JAZMINE 06/07/2024 1:20 PM EDT Office Visit Dermatology at [address] [phone] Gómez Mercer MD Tinea cruris 06/07/2024 12:55 PM EDT - 06/07/2024 11:59 PM EDT Hospital [place] [address] Left sided colitis without complications Discharge Disposition: Home 06/06/2024 12:56 PM EDT - 06/06/2024 11:59 PM EDT Hospital [place] [address] Left sided colitis without complications Discharge Disposition: Home 06/06/2024 8:00 AM EDT Office [place] [address] Marcelle Weinberg, FARM APPRAISER Left sided colitis without complications 06/06/2024 Telephone Gastroenterology at [facility] [place] [address] Marcelle Weinberg, JAZMINE 06/06/2024 Travel from Last 3 Months Social History Tobacco Use Types Packs/Day Years Used Date Smoking Tobacco: Former Cigarettes 4 30 1 12/01/1961 - 10/01/1992 Smokeless Tobacco: Former Chew Comments:Denies vaping Alcohol Use Standard Drinks/Week Comments Yes 0 (1 standard drink = 0.6 oz pur e alcohol) twice a year [facility] Utilities Answer Date Recorded In [...] in a prison (including now)? No 07/01/2024 [facility] Inpatient Questions Answer Date Recorded Does Anyone [...] Vascular Unit Level 4 [place] [phone] Faheem Joy MD [facility] [place] [address] 08/15/2024 9:00 AM EDT Office [place] [phone] Dion Barlow MD [facility] [place] [address] 09/01/2024 9:40 AM EDT Office Visit Cardiology at [address] [address] Franky Shaver MD [facility] [place] [address] 09/01/2024 11:20 AM EDT Office Visit Dermatology at [facility] [address] [place] [address] Gómez Mercer MD [facility] DR [place] [address] 09/21/2024 2:45 PM EDT Office Visit Pain [facility] Sp[facility] Center at [facility] [place] [phone] Trung Hoyos MD [facility] [place] [address] Health Maintenance Due Date Last Done Comments [...] Procedure Name Priority Date/Time Associated Diagnosis Comments [facility] Routine 07/27/2024 5:32 PM EDT [facility] Routine 07/27/2024 4:43 PM EDT POC, GLUCOSE Routine 07/04/2024 1:49 PM EDT [...] PM EDT URINALYSIS BEAKER MICROSCPIC REFLEX EXAM ([facility]) Routine 07/03/2024 3:02 PM EDT URINALYSIS [...] Recently Relevant to Health Maintenance Results * External Cardiology Result (07/27/2024 5:32 PM EDT) Anatomical Region Laterality Modality Other Historical Provider EXTERNAL CARDIOLO GY RESULT * External Cardiology Result (07/27/2024 4:43 PM EDT) Anatomical Region Laterality Modality Other Historical Provider EXTERNAL CARDIOLO GY RESULT * (ABNORMAL) POC, GLUCOSE (07/04/2024 1:49 PM EDT) Only the most recent of18 resultswithin the time period is included. [facility] Glucometer, POC 274(H) 65 - 199 mg/dL 07/04/2024 2:12 PM EDT [facility] Comment:Supplemental ranges: <140 mg/dL before meals <180 mg/dL all other times of the day. Blood CAPILLARY BLOOD / Unknown 07/04/2024 1:49 PM EDT 07/04/2024 2:12 PM EDT Armond Denny MD POINT OF CARE TEST O RDERABLES [facility] [place] [address] * Scan Doc: Telemetry Strips (07/04/2024 7:32 AM EDT) Only the most recent of18 resultswithin the time period is included. Narrative 07/04/2024 7:32 AM EDT Ordered by an unspecified provider. Scanning Provider MEDIA MGR SCAN EXT O RDR/RSLT * (ABNORMAL) CBC (with Diff) (07/04/2024 1:43 AM EDT) Only the most recent of5 resultswithin the time period is included. White Blood Cell 5.05 4.00 - 9.50 x10(3)/mc L 07/04/2024 2:00 AM EDT [facility] Red Blood Cell 3.11(L) 4.58 - 5.54 x10(6)/mc L 07/04/2024 2:00 AM EDT [facility] Hemoglobin 10.5(L) 13.7 - 16.5 g/dL 07/04/2024 2:00 AM EDT [facility] Hematocrit 31.5(L) 40.5 - 48.5 % 07/04/2024 2:00 AM EDT [facility] Mean Cell Volume 101.3(H) 82.9 - 93.1 fL 07/04/2024 2:00 AM EDT [facility] Mean Cell Hemoglobin 33.8(H) 27.5 - 32.1 pg 07/04/2024 2:00 AM EDT [facility] Mean Cell Hemoglobin Concentration 33.3 32.0 - 35.7 g/dL 07/04/2024 2:00 AM EDT [facility] Platelet 145 145 - 357 x10(3)/mc L 07/04/2024 2:00 AM EDT [facility] Mean Platelet Volume 11.5 7.6 - 12.9 fL 07/04/2024 2:00 AM EDT [facility] RDW Standard Deviation 48.2(H) 36.0 - 45.0 fL 07/04/2024 2:00 AM [facility] RDW coefficient of variation 13.1 11.4 - 13.8 % 07/04/2024 2:00 AM [facility] NRBC% auto 0.0 % 07/04/2024 2:00 AM [facility] NRBC Absolute 0.00 0.00 - 0.00 x10(3)/mc L 07/04/2024 2:00 AM [facility] Neutrophil % 65.9 % 07/04/2024 2:00 AM [facility] Neutrophil Absolute (ANC) - Automated 3.33 1.70 - 6.10 x10(3)/mc L 07/04/2024 2:00 AM [facility] Lymph % 20.8 % 07/04/2024 2:00 AM [facility] Lymph Absolute 1.05 0.90 - 3.20 x10(3)/mc L 07/04/2024 2:00 AM [facility] Monocyte % 9.3 % 07/04/2024 2:00 AM [facility] Monocyte Absolute 0.47 0.30 - 0.90 x10(3)/mc L 07/04/2024 2:00 AM [facility] Eos % 3.0 % 07/04/2024 2:00 AM [facility] Eos Absolute 0.15 0.00 - 0.40 x10(3)/mc L 07/04/2024 2:00 AM [facility] Basophil % 0.6 % 07/04/2024 2:00 AM [facility] Baso Absolute 0.03 0.00 - 0.10 x10(3)/mc L 07/04/2024 2:00 AM [facility] Immature Gran % 0.4 % 2:00 AM [facility] Immature Gran Absolute 0.02 0.00 - 0.04 x10(3)/mc L 07/04/2024 2:00 AM EDT [facility] Blood VENOUS BLOOD SPECIMEN / Unknown IP Care Team Draw / Unknown 07/04/2024 1:43 AM EDT 07/04/2024 1:52 AM EDT Triston Godinez MD HEMATOLOGY ORDERABLE S Performing Organization Address City/[facility]/[place] Co de Phone Number [facility] [place] [address] * Magnesium (07/04/2024 1:43 AM EDT) Only the most recent of4 resultswithin the time period is included. Magnesium 0.80 0.69 - 1.07 mMol/L 07/04/2024 2:23 AM EDT [facility] Blood VENOUS BLOOD SPECIMEN / Unknown IP Care Team Draw / Unknown 07/04/2024 1:43 AM EDT 07/04/2024 1:52 AM EDT Triston Godinez MD CHEMISTRY ORDERABLES Performing Organization Address City/[facility]/[place] Co de Phone Number [facility] [place] [address] * (ABNORMAL) Basic Metabolic Panel (07/04/2024 1:43 AM EDT) Only the most recent of5 resultswithin the time period is included. Glucose 156 65 - 199 mg/dL 07/04/2024 2:23 AM EDT [facility] Comment:Glucose Concentratio n >=200 mg/dL plus symptoms is consistent with Diabetes Mellitus. Blood Urea Nitrogen 12 10 - 20 mg/dL 07/04/2024 2:23 AM EDT [facility] Creatinine 1.27 0.80 - 1.50 mg/dL 07/04/2024 2:23 AM EDT [facility] Sodium 141 135 - 145 mMol/L 07/04/2024 2:23 AM EDT [facility] Potassium 3.9 3.5 - 5.0 mMol/L 07/04/2024 [facility] Chloride 108(H) 98 - 107 mMol/L 07/04/2024 2:23 AM EDT [facility] Carbon Dioxide 22 22 - 31 mMol/L 07/04/2024 2:[facility] Anion Gap 11 5 - 15 mMol/L 07/04/2024 2:23 AM T [facility] Calcium 9.4 8.5 - 10.5 mg/dL 07/04/2024 2:23 AM [facility] Est Glomerular Filtration Rate - Male 59 mL/min/1. 73 m?? 07/04/2024 2:23 AM [facility] Comment: This patient's estimated GFR [...] Godinez MD CHEMISTRY ORDERABLES [facility] [place] [address] * (ABNORMAL) Urinalysis Microscopic Reflex to Culture (07/03/2024 3:02 PM EDT) RBC, Urine 2 0 - 3 /HPF 07/03/2024 3:40 PM EDT [facility] WBC, Urine 55(H) 0 [...] Denny MD URINE ORDERABLES Performing Organization Address City/[facility]/ZIP Co de Phone Number [facility] [place] [address] * Urinalysis Microscopic with Reflex to Culture (07/03/2024 3:02 PM EDT) Urine URINE SPECIMEN OBTAINED BY CLEAN CATCH PROCEDURE / Unknown Non Blood Collection / Unknown 07/03/2024 3:02 PM EDT 07/03/2024 3:13 PM EDT Armond Denny MD URINE ORDERABLES Performing Organization Address City/[facility]/ZIP Co de Phone Number [facility] [place] [address] * (ABNORMAL) Urinalysis with reflex Culture (07/03/2024 [...] 3:40 PM EDT [facility] Specific [place] Urine Automated 1.024 1.005 - 1.030 07/03/2024 3:40 PM EDT [facility] Appearance, Urine Dipstick Cloudy(A) Clear 07/03/2024 3:40 PM EDT [facility] Color, Urine Dipstick Dark Yellow Yellow, Dark Yellow 07/03/2024 3:40 PM EDT [facility] Urine URINE SPECIMEN OBTAINED BY CLEAN CATCH PROCEDURE / Unknown Non Blood Collection / Unknown 07/03/2024 3:02 PM EDT 07/03/2024 3:13 PM EDT Armond Denny MD URINE ORDERABLES [facility] [place] [address] * (ABNORMAL) Urine culture (07/03/2024 3:02 PM [...] ug/ml: Sensitive Armond Denny MD MICROBIOLOGY - [facility] AL ORDERABLES [facility] [place] [address] * CT Abdomen & Pelvis w Contrast (07/02/2024 3:13 AM EDT) WORKSTATION ID [id number] DH RAD Anatomical Region Laterality Modality Abdomen, Pelvis [...] who have questions please contact the health lawn care specialist that requested your imaging first. ? Narrative [...] patients who have questions please contactthe health lawn care specialist that requested your imaging first. Triston Godinez [...] (Bezet) 473 ms MUSE SYSTEM Calculated P [place] 63 degrees MUSE SYSTEM Calculated R [place] 87 degrees MUSE SYSTEM Calculated T [place] 8 degrees MUSE SYSTEM INTERPRETATION Normal sinus rhythm Right bundle branch block Cannot rule out Inferior infarct , age undetermined Abnormal ECG When compared with ECG of 30-JUN-2024 17:23, Right bundle branch block is now Present Criteria for Septal infarct are no longer Present Confirmed by MD Melo Katharine (Lakhwinder) on 07/03/2024 2:47:21 PM MUSE SYSTEM 07/01/2024 5:24 PM EDT 07/03/2024 2:47 PM EDT Lizzette Hayden MD ECG ORDERABLES MUSE SYSTEM * CARDIAC CATHETERIZATION (07/01/2024 5:00 PM EDT) Anatomical Region Laterality Modality Other Narrative 07/01/2024 7:47 PM EDT ?[facility] ? Cardiac Catheterization/Intervention Report ? Patient Name: Naya Rodriguez. ? Procedure Date: 07/01/2024 ? A #: [id number] ? Primary Physician: Lizzette Hayden ? Case #: [id number] ? File Name: [id number] ? Catheterization Order Number: [id number] ? [facility] ? Final Report [place], [place] ? Patient Name: ? Naya M. Rodriguez ?ID#: ?[id number] ? : ?1950 ? Procedure Date: ? July 01, 2024 ? Case #: ? [id number] ? Room: ? 5 ? Case Physician: ? Emad Catracho M.D. ? Start: ?15:10 ?Fellow: ? Max Wally Vega MTeddy. ? Admission: ??06/30/2024 ?Elmo Byrd M.D. ? [...] ? A premounted 2.75 x 22 mm [place] (EILEEN) was deployed ? with a maximum [...] may require ?modification of this regimen. Consult [facility] Interventional Cardiology for ?questions. ?This patient has [...] against any medical treatment. Consult ?http://tools.acc.org/DAPTriskapp/#!/content/calculator/ or [facility] ?Interventional Cardiology for questions ? Conclusions: ?* [...] Procedure Note Lizzette Hayden MD - 07/14/2024 [facility] Cardiac Catheterization/Intervention Report Patient Name: Naya Rodriguez Procedure Date: 07/01/2024 A #: [id number] Primary Physician: Lizzette Hayden Case #: [id number] File Name: [id number] Catheterization Order Number: [id number] [facility] FinalReport [place], [place] Patient Name: Naya Rodriguez ID#:[id number] :1950 Procedure Date: July 01, 2024 Case [...] as ASA Class III. [facility] clinical frailty [facility] is 4: Vulnerable. Diagnostic [...] time was 37.0 minutes, dose area product isq539.00 Gy/cm2 and air kerma was 1,874 mGY. [...] The priority for the procedure was Urgent.The [facility] indication for the procedure was NSTE-ACS. Syntax [...] The lesion was predilated with a 2.50mm [id number] MM balloon with a maximum inflation pressure of 14atmospheres. A premounted 2.75 x 22 mm [place] (EILEEN) wasdeployed with a maximum inflation pressure [...] situation mayrequire modification of this regimen. Consult [facility] Interventional Cardiologyfor questions. This patient has a [...] or against any medical treatment.Consult http://tools.acc.org/DAPTriskapp/#!/content/calculator/ or [facility] Interventional Cardiology for questions Conclusions: * One [...] MD HEMATOLOGY ORDERABLE S [facility] [place] [address] * (ABNORMAL) Hemogram (07/01/2024 10:32 AM EDT) Only the most recent of2 resultswithin the time period is included. White Blood Cell 7.02 4.00 - 9.50 x10(3)/mc L 07/01/2024 11:20 AM EDT [facility] Red Blood Cell 3.68(L) 4.58 - 5.54 x10(6)/mc L 07/01/2024 11:20 AM EDT [facility] Hemoglobin 12.2(L) 13.7 - 16.5 g/dL 07/01/2024 11:20 AM EDT [facility] Hematocrit 36.5(L) 40.5 - 48.5 % 07/01/2024 11:20 AM EDT [facility] Mean Cell Volume 99.2(H) 82.9 - 93.1 fL 07/01/2024 11:20 AM EDT [facility] Mean Cell Hemoglobin 33.2(H) 27.5 - 32.1 pg 07/01/2024 11:20 AM EDT [facility] Mean Cell Hemoglobin Concentration 33.4 32.0 - 35.7 g/dL 07/01/2024 11:20 AM EDT [facility] Platelet 167 145 - 357 x10(3)/mc L 07/01/2024 11:20 AM EDT [facility] Mean Platelet Volume 11.4 7.6 - 12.9 fL 07/01/2024 11:20 AM EDT [facility] RDW Standard Deviation 46.5(H) 36.0 - 45.0 fL 07/01/2024 11:20 AM EDT [facility] RDW coefficient of variation 12.9 11.4 - 13.8 % 07/01/2024 11:20 AM EDT [facility] NRBC% auto 0.0 % 07/01/2024 11:20 AM EDT [facility] NRBC Absolute 0.00 0.00 - 0.00 x10(3)/mc L 07/01/2024 11:20 AM EDT [facility] Blood VENOUS BLOOD SPECIMEN / Unknown IP Care Team Draw / Unknown 07/01/2024 10:32 AM EDT 07/01/2024 10:54 AM EDT Armond Denny MD HEMATOLOGY ORDERABLE S [facility] [place] [address] * (ABNORMAL) Troponin-T, Yuriy Sensitivity 3 Hour (06/30/2024 11:25 PM EDT) Pathologist [facility] Troponin-T, High Sensitivity 1,274(H) <=22 ng/L 07/01/2024 [...] Medical Center Laboratory Test Catalog Troponin - https://one-.testcatalog.org/catalogs/565/files/46982 Reference: Fourth [place] Definition of Myocardial Infarction. Journal of the [place] College of Cardiology 2018;72:5993-4491 Troponin-T, HS 3 hr delta 65 ng/L [...] Godinez MD CHEMISTRY ORDERABLES [facility] [place] [address] * (ABNORMAL) Troponin-T, High Sensitivity 1 Hour (06/30/2024 8:22 PM EDT) [facility] Troponin-T, High Sensitivity 1,234(H) <=22 ng/L 06/30/2024 [...] Medical Center Laboratory Test Catalog Troponin - https://one-.testcatalog.org/catalogs/565/files/28373 Reference: Fourth [place] Definition of Myocardial Infarction. Journal of the [place] College of Cardiology 2018;72:3494-3857 Troponin-T, HS 1 hr delta 06/30/2024 9:22 PM EDT [facility] Comment:Delta troponin value not calculated, sample collected outside of delta calculation time limit. Blood VENOUS BLOOD SPECIMEN / Unknown Venipuncture / Unknown 06/30/2024 8:22 PM EDT 06/30/2024 8:40 PM EDT Triston Godinez MD CHEMISTRY ORDERABLES [facility] [place] [address] * XR Abdomen Flat & Upright (06/30/2024 6:56 PM EDT) WORKSTATION ID [id number] RAD Anatomical Region Laterality Modality Abdomen N/A Digital Radiogra phy Impressions 06/30/2024 9:12 PM EDT No obstruction or perforation. Thank you for letting us participate in the care of this patient. ??If you are a health care provider and have any questions regarding this report, please contact the number below. ??For patients who have questions please contact the health lawn care specialist that requested your imaging first. ? Narrative [...] patients who have questions please contactthe health lawn care specialist that requested your imaging first. Triston Godinez MD IMG DX ORDERABLES * (ABNORMAL) Troponin-T, High Sensitivity (06/30/2024 6:09 PM EDT) [facility] Troponin-T, High Sensitivity Initial 1,209([facility] ) <=22 ng/L 06/30/2024 7:23 PM [...] Medical Center Laboratory Test Catalog Troponin - https://one-.testcatalog.org/catalogs/565/files/15146 Reference: Fourth [place] Definition of Myocardial Infarction. Journal of the [place] College of Cardiology 2018;72:9198-8902 Blood VENOUS BLOOD SPECIMEN / Unknown Venipuncture / Unknown 06/30/2024 6:09 PM EDT 06/30/2024 6:18 PM EDT Triston Godinez MD CHEMISTRY ORDERABLES [facility] [place] [address] * TSH (06/30/2024 6:09 PM EDT) Thyroid Stimulating Hormone 2.80 0.27 - 4.20 mcIU/mL 06/30/2024 6:51 PM EDT [facility] Blood VENOUS BLOOD SPECIMEN / Unknown Venipuncture / Unknown 06/30/2024 6:09 PM EDT 06/30/2024 6:18 PM EDT Triston Godinez MD CHEMISTRY ORDERABLES [facility] [place] [address] * (ABNORMAL) pro-Brain Natriuretic Peptide (06/30/2024 6:09 PM EDT) NT-proBNP 2,259(H) <=449 pg/mL 06/30/2024 6:51 PM EDT [facility] Blood VENOUS BLOOD SPECIMEN / Unknown Venipuncture / Unknown 06/30/2024 6:09 PM EDT 06/30/2024 6:18 PM EDT Triston Godinez MD CHEMISTRY ORDERABLES [facility] [place] [address] * Lipid Panel (Reflex Direct LDL) (06/30/2024 [...] artery disease) Triston Godinez MD CHEMISTRY ORDERABLES [place] [phone] * (ABNORMAL) Hemoglobin A1c (06/30/2024 6:08 PM [...] red blood cell turnover may not be branch sales and service representative of glycemic control. Reference Interval: [...] into estimated average glucose values. ??Diabetes Care 2008:31(8):4374-9278. Additional resources are available on the ADA website (diabetes.org). Triston Godinez MD CHEMISTRY ORDERABLES [facility] [place] [address] * ECHO COMPLETE W CONTRAST (06/30/2024 5:22 [...] findings. No prior study is available. Procedure Complete-71978. Image enhancement Optison was used for left [...] findings. No prior study is available. Procedure Complete-74520. Image enhancement Optison was used for left [...] DX Chest (06/29/2024 7:22 PM EDT) Narrative [facility] - 06/29/2024 7:22 PM EDT This exam is auto-finalizing. It's purpose is for storage only. Deacon Watters APRN IMG FILM LIBRARY O RDERABLES Performing Organization Address City/State/[place] Co de Phone Number [place], [place] * External Cardiology Result (06/29/2024 4:33 PM EDT) Anatomical Region Laterality Modality Other Historical Provider EXTERNAL CARDIOLO GY RESULT * Campylobacter Antigen (06/07/2024 9:00 AM EDT) Pathologist [facility] Campylobacter Ag Immunoassay Negative for Campylobacter Antigen [facility] Stool 06/07/2024 9:00 AM EDT 06/07/2024 1:32 PM EDT Narrative Resulting Agency Comment Spec In Lab Marcelle Weinberg FARM APPRAISER MICROBIOLOGY - GE NERAL ORDERABLES Performing Organization Address [facility]/[place] Co de Phone Number [facility] [place] [address] * Shiga Toxin Detection (06/07/2024 9:00 AM EDT) Shiga Toxin Assay EIA Negative for Shiga Toxin 1 EIA Negative for Shiga Toxin 2 [facility] Stool 06/07/2024 9:00 AM EDT 06/07/2024 1:32 PM EDT Narrative Resulting Agency Comment Spec In Lab Marcelle Weinberg FARM APPRAISER MICROBIOLOGY - GE NERAL ORDERABLES Performing Organization Address [facility]/[place] Co de Phone Number [facility] [place] [address] * Stool culture (06/07/2024 9:00 AM EDT) Stool Culture No enteric pathogens isolated [facility] Stool 06/07/2024 9:00 AM EDT 06/07/2024 1:32 PM EDT Narrative Resulting Agency Comment Spec In Lab Marcelle Weinberg FARM APPRAISER MICROBIOLOGY - GE NERAL ORDERABLES Performing Organization Address [facility]/[place] Co de Phone Number [facility] [place] [address] * C. Difficile Screen (06/06/2024 5:30 PM [...] Agency Comment Spec In Lab MonalisaDg Weinberg FARM APPRAISER MICROBIOLOGY - GE NERAL ORDERABLES Performing Organization Address [facility]/[place] Co de Phone Number [facility] [place] [address] * (ABNORMAL) Calprotectin, Stool (06/06/2024 5:30 PM EDT) Calprotectin, Stool 112(H) <=79 mcg/g [facility] Comment: Calprotectin Concentration ? Interpretation ? < 80 mcg/g ?Normal ? 80 ? 160 mcg/g ?Borderline ? >160 mcg/g ?Elevated Stool 06/06/2024 5:30 PM EDT 06/07/2024 1:07 PM EDT Narrative Resulting Agency Comment Spec In Lab MonalisaDg Weinberg FARM APPRAISER BODY FLUIDS AND S TOOLS ORDERABLES Performing Organization Address [facility] de Phone Number [facility] [place] [address] * (ABNORMAL) CRP, acute inflammation (06/06/2024 9:04 AM EDT) C-Reactive Protein 6.4(H) <=4.9 mg/L [facility] Blood 06/06/2024 9:04 AM EDT 06/06/2024 9:12 AM EDT Narrative Resulting Agency Comment Spec In Lab MonalisaDg Weinberg [employer] CHEMISTRY ORDERAB LES Performing Organization Address [facility] Co de Phone Number [facility] [place] [address] * Differential, Automated (06/06/2024 9:04 AM EDT) Neutrophil % 70.3 % [facility] Neutrophil Absolute 4.36 1.70 - 6.10 x10(3)/[facility] Lymph % 19.7 % [facility] Lymphocytes Abs 1.2 0.9 - 3.2 x10(3)/[facility] Monocyte % 7.7 % [facility] Monocyte Abs 0.5 0.3 - 0.9 x10(3)/[facility] Eos % 1.3 % [facility] Eosinophils Abs 0.1 0.0 - 0.4 x10(3)/[facility] Basophil % 0.5 % [facility] Baso Absolute 0.0 0.0 - 0.1 x10(3)/[facility] Immature Gran % 0.50 % [facility] Comment: Immature granulocytes(IG's)percentage [...] Agency Comment Spec In Lab Marcelle Weinberg [employer] HEMATOLOGY ORDERA BLES [facility] [place] [address] * Sedimentation rate (06/06/2024 9:04 AM EDT) Pathologist [facility] Sedimentation Rate Automated 38 3 - 46 mm/hr [facility] Comment: Effective November 02, 2019 new capillary photometric technology has resulted in a change in reference ranges. It is recommended that each ESR result be reviewed with its own age appropriate reference range. Blood 06/06/2024 9:04 AM EDT 06/06/2024 9:12 AM EDT Narrative Resulting Agency Comment Spec In Lab Marcelle Weinberg [employer]ARM [employer] HEMATOLOGY ORDERA BLES [facility] [place] [address] * Comprehensive metabolic panel (non-fasting) (06/06/2024 9:04 AM EDT) Glucose 136 65 - 199 mg/dL [facility] Comment:Diabetes: >=200 mg/d L plus symptoms Blood Urea Nitrogen 16 10 - 20 mg/dL [facility] Creatinine 1.05 0.80 - 1.50 mg/dL [facility] Sodium 144 135 - 145 mmol/L [facility] Potassium 4.2 3.5 - 5.0 mmol/L [facility] [...] 10.5 mg/dL [facility] Protein, Total 7.6 6.1 - 8.0 g/dL [facility] Albumin 4.1 3.2 - 5.2 g/dL [facility] Aspartate Aminotransferase 16 0 - 39 unit/L [facility] Alanine Aminotransferase 18 0 - 55 unit/L [facility] Alkaline Phosphatase 71 40 - 130 unit/L [facility] Bilirubin, Total 0.5 0.2 - 1.3 mg/dL [facility] Est Glomerular Filtration Rate 74 >=60 mL/min/1. 73 m?? [facility] Comment: This patient's estimated GFR [...] Agency Comment Spec In Lab Marcelle Weinberg [employer] CHEMISTRY ORDERAB LES [facility] [place] [address] * COLONOSCOPY (01/20/2024 10:01 AM EST) COLONOSCOPY [facility] Endoscopy Procedure Date: 01/20/2024 10:01 AM ? Patient Name: Naya Rodriguez ? Date of : 1950 ? Age: 73 ? Order #: [id number] ? Instrument Name: [id number] ? Procedure: ? Colonoscopy Indications: ? Follow-up [...] ? physician, the nurse and the ? hydroelectric production technician in the pre-procedure ? area in [...] 01/20/2024 10:0 1 AM EST Deacon Watters [employer] GENERAL SURGICAL O RDERABLES [employer] * FLEXIBLE SIGMOIDOSCOPY (03/16/2012 1:15 PM EDT) FLEXIBLE SIGMOIDOSCOPY [facility] Endoscopy Patient Name: Naya Rodriguez ? Procedure Date: 03/16/2012 1:15 PM ? Date of : 1950 ? Age: 61 ? Order #: [id number] ? Procedure: ? Flexible Sigmoidoscopy Indications: ? pt with active UC, assess severity ? prior to entry in MTX study Providers: ? Enrico Tellez MD, April Augustine ? Cristela, RONY, Kingsley Oneal, ? Corn Sheller Referring MD: ?Maximilian Fall MD Requesting Provider: [...] Documents on File Type Date Recorded Patient Process Owner Expl anation Advance Directives and Livin g [...] capacity to make decision: Yes Care Teams Oyster Floater Relationship Specialty Start Date End Date Deacon Watters, FARM APPRAISER [address] [place] [address] [address] [place] [address] PCP - General Family Medicine 02/17/22
--- OUTSIDE RECORDS SUMMARY | 2024-07-27 21:04 | XMS_ITS | Encounter Summary ---
Author Organization Health system Address [address] [place] [address] Care Team Providers Care Staff Radiologist Name Role Phone Maximilian Fall MD Primary Care Provider [phone] Encounter Details Date Type Department Care Team (Late st Contact Info) Description 07/09/2021 Lab Requisition [facility] Pathology & Laboratory Medicine - [address] [id number] Outr Resulting Lab, Provider Social History Tobacco [...] Outr Resulting Lab MICROBIOLOGY - GENERAL ORDERABLES [facility] [address] [place] [address] * COVID-19 TESTING (07/08/2021 16:45 EDT) COVID-19 rt-PCR Result Negative Negative 07/10/2021 13:51 EDT [facility] Comment: This test has [...] developed and its performance characteristics determined by [facility]. It has not been cleared or approved [...] testing. This test is based on the [facility] COVID-19 Emergency Use Authorization (EUA) assay, with minor modification as defined by the FDA Performed on the Aquion Energyo 7 Pro RT-PCR System. Performing Lab [facility] Lab 07/10/2021 13:51 EDT [facility] Swab 07/08/2021 16:4 5 EDT 07/09/2021 15:41 EDT Provider Outr Resulting Lab MICROBIOLOGY - GENERAL ORDERABLES Performing Organization Address City/[facility] Co de Phone Number [facility] [address] [place] [address] documented in this encounter Visit Diagnoses Not on filedocumented in this encounter Care Teams Staff Radiologist Relationship Specialty Start Date End Date Maximilian Fall MD PCP - General 03/18/16 documented as of this encounter
--- OUTSIDE RECORDS SUMMARY | 2024-07-27 21:04 | XMS_ITS | Encounter Summary ---
Author Organization [facility] Address [address] [place] [address] Care Team Providers Care Welding Specialist Name Role Phone Maximilian Fall MD Primary Care Provider [phone] Encounter Details Date Type Department Care Team (Late st Contact Info) Description 11/28/2021 Lab Requisition [facility] Pathology & Laboratory Medicine - [address] [phone] Outr Resulting Lab, Provider Social History Tobacco [...] Outr Resulting Lab MICROBIOLOGY - GENERAL ORDERABLES [facility] [address] [place] [address] * COVID-19 TESTING (11/27/2021 12:35 EST) COVID-19 rt-PCR Result Negative Negative 11/29/2021 16:23 EST [facility] Comment: This test has [...] developed and its performance characteristics determined by [facility]. It has not been cleared or approved [...] testing. This test is based on the [facility] COVID-19 Emergency Use Authorization (EUA) assay, with minor modification as defined by the FDA Performed on the Viva Dengio 7 Flex RT-PCR System. Performing Lab [facility] Lab 11/29/2021 16:23 EST [facility] Swab 11/27/2021 12:3 5 EST 11/28/2021 17:45 EST Provider Outr Resulting Lab MICROBIOLOGY - GENERAL ORDERABLES [facility] [address] [place] [address] documented in this encounter Visit Diagnoses Not on filedocumented in this encounter Care Teams Welding Specialist Relationship Specialty Start Date End Date Maximilian Fall MD PCP - General 03/18/16 documented as of this encounter
--- OUTSIDE RECORDS SUMMARY | 2024-07-27 21:04 | XMS_ITS | Encounter Summary ---
Author Organization [facility] Address [facility] [place] [address] Care Team Providers Care Foreign Food Cook Specialty Name Role Phone Deacon Watters APRN Primary Care Provider [phone] Encounter Details Date Type Department Care Team (Late st Contact Info) Description 07/27/2024 External Results [place] [phone] Social History Tobacco Use Types Packs/Day Years Used Date Smoking Tobacco: Former Cigarettes 4 30 1 12/01/1961 - 10/01/1992 Smokeless Tobacco: Former Chew Comments:Denies vaping Alcohol Use Standard Drinks/Week Comments Yes 0 (1 standard drink = 0.6 oz pur e alcohol) twice a year [facility] Utilities Answer Date Recorded In the past [...] any time in the past 12 m [facility], were you homeless or [...] Vascular Unit Level 4 [place] [address] Faheem Joy MD [facility] [place] [address] 08/15/2024 9:00 AM EDT Office [place] [phone] Dion Barlow MD [facility] [place] [address] 09/01/2024 9:40 AM EDT Office Visit Cardiology at [address] [address] Franky Sahver MD [facility] [place] [address] 09/01/2024 11:20 AM EDT Office Visit Dermatology at [facility] [address] [place] [address] Gómez Mercer MD [facility] DR EDDIE [place] [address] 09/21/2024 2:45 PM EDT Office Visit Pain and Spine Center at [facility] [address] Trung Hoyos MD [facility] [place] [address] documented as of this encounter Procedures Procedure Name Priority Date/Time Associated Diagnosis Comments [facility]TER[facility] RESULT Routine 07/27/2024 5:32 PM EDT [facility]TER[facility]IOLOGY RESULT Routine 07/27/2024 4:43 PM EDT documented in this encounter Results * External Cardiology Result (07/27/2024 5:32 PM EDT) Anatomical Region Laterality Modality Other Historical Provider EXTERNAL CARDIOLO GY RESULT * External Cardiology Result (07/27/2024 4:43 PM EDT) Anatomical Region Laterality Modality Other Historical Provider EXTERNAL CARDIOLO GY RESULT documented in this encounter Visit Diagnoses Not on filedocumented in this encounter Care Teams Foreign Food Cook Specialty Relationship Specialty Start Date End Date Deacon Watters APRN [address] [place] [address] [address] [place] [address] PCP - General Family Medicine 02/17/22 documented as of this encounter
--- OUTSIDE RECORDS SUMMARY | 2024-07-27 21:04 | XMS_ITS | Encounter Summary ---
Author Organization [facility] Address [address] [place] [address] Care Team Providers Care Line Cleaner Name Role Phone Maximilian Fall MD Primary Care Provider [phone] Encounter Details Date Type Department Care Team [...] filedocumented in this encounter Care Teams Line Cleaner Relationship Specialty Start Date End Date Maximilian Fall MD PCP - General 03/18/16 documented as of this encounter
--- OUTSIDE RECORDS SUMMARY | 2024-07-27 21:04 | XMS_ITS | Encounter Summary ---
Author Organization [facility] Address [address] [place] [address] Care Team Providers Care Marketing Strategist Name Role Phone Unavailable Primary Care Provider Unavailabl e Encounter Details Date Type Department Care Team (Late st Contact Info) Description 12/05/[address] [facility] Laboratory Services - [facility] ([facility]) [address] [place], [place] [address] [place] [address] [place] [phone] Social History Tobacco Use Types Packs/Day [...] ? RODRIGUEZ, BRIAN ? Accession #: ? [id number] ? : ? 1950 (Age: 59) ??M [...] ?? lesions suggestive of a neoplastic focus. ??Dye Beck Reel Operator sections are submitted in (A1) and (A2). (Davina Ordoñez)/mpl ? End of Report ? JOSEPHINE ESCOTO 12/05/2009 12/06/2009 8:4 7 EST Jennifer Saenz MD PATHOLOGY ORDERABLES [facility] [address] [place] [address] documented in this encounter Visit Diagnoses Not on filedocumented in this encounter
--- OUTSIDE RECORDS SUMMARY | 2024-07-27 21:04 | XMS_ITS | Encounter Summary ---
Author Organization [facility] Address [facility] [place] [address] Care Team Providers Care Copy Cutter Name Role Phone Deacon Watters APRN Primary Care Provider [phone] Encounter Details Date Type Department Care Team (Late st Contact Info) Description 07/05/2024 Abstract Cardiology at [address] [address] Lesa Duncan, RN Social History Tobacco Use Types Packs/Day Years Used Date Smoking Tobacco: Former Cigarettes 4 30 1 12/01/1961 - 10/01/1992 Smokeless Tobacco: Former Chew Comments:Denies vaping Alcohol Use Standard Drinks/Week Comments Yes 0 (1 standard drink = 0.6 oz pur e alcohol) twice a year [facility] Utilities Answer Date Recorded In the past 12 months has e Onsite Care, gas, oil, or water [employer] threatened to shut off services in your [...] in the past 12 m [facility], were you homeless or living in a [...] Vascular Unit Level 4 [place] [address] Faheem Joy MD [facility] [place] [address] 08/15/2024 9:00 AM EDT Office [place] [address] Dion Barlow MD [facility] [place] [address] 09/01/2024 9:40 AM EDT Office Visit Cardiology at [address] [phone] Franky Shaver MD [facility] [place] [address] 09/01/2024 11:20 AM EDT Office Visit Dermatology at [facility] [address] [place] [address] Gómez Mercer MD [facility] DR EDDIE SANCHEZ[place] [address] 09/21/2024 2:45 PM EDT Office Visit Pain and Spine Center at [facility] [place] [phone] Trung Hoyos MD [facility] [place] [address] documented as of this encounter Visit Diagnoses Not on filedocumented in this encounter Care Teams Copy Cutter Relationship Specialty Start Date End Date Deacon Watters, JAZMINE [address] [place] [address] PCP - General Family Medicine 02/17/22 documented as of this encounter
--- OUTSIDE RECORDS SUMMARY | 2024-07-27 21:04 | XMS_ITS | Encounter Summary ---
Author Organization [facility] Address [address] [place] [address] Care Team Providers Care Marker Assembler Name Role Phone Sharad Mcleod MD Primary Care Provider Unavail able Encounter Details Date Type Department Care Team (Late st Contact Info) Description 10/22/2004 Results Only [facility] - Maple conversion [address] [place] [address] Maximilian Quiroga MD [address] [place] [address] Social History Tobacco Use Types Packs/Day Years [...] ? NAYA RODRIGUEZ ? Accession #: ? [id number] ? : ? 1950 (Age: 54) ??M [...] or eosinophils seen in this biopsy. ??(Dr. Hair)/[facility] ?? Document reviewed and electronically signed [...] submitted intact in one cassette. ?? (Dr. Terrazas-[place])/[facility] ?? End of Report JOSEPHINE ESCOTO 10/22/2004 10/22/2004 14: 58 EST Maximilian Quiroga MD PATHOLOGY ORDERABLES [facility] [address] [place] [address] documented in this encounter Visit Diagnoses Not on filedocumented in this encounter Care Teams Marker Assembler Relationship Specialty Start Date End Date Sharad Mcleod MD PCP - General 12/07/09 03/17/16 documented as of this encounter
--- OUTSIDE RECORDS SUMMARY | 2024-07-27 21:04 | XMS_ITS | Encounter Summary ---
Author Organization [facility] Address [address] [place] [address] Care Team Providers Care Manager Retirement Name Role Phone Unavailable Primary Care Provider Unavailabl e Encounter Details Date Type Department Care Team (Late st Contact Info) Description 10/09/2008 Before PRISM Converted Visit (Maple) [facility] - Maple conversion [address] [place] [address] Yeni Agustin MD [address] [place] [address] Social History Tobacco Use Types Packs/Day Years [...] ? RODRIGUEZ, BRIAN ? Accession #: ? [id number] ? : ? 1950 (Age: 58) ??M [...] PATHOLOGY ORDERABLE S [facility] [address] [place] [address] documented in this encounter Visit Diagnoses Not on filedocumented in this encounter
--- OUTSIDE RECORDS SUMMARY | 2024-07-27 21:04 | XMS_ITS | Encounter Summary ---
Author Organization [facility] Address [address] [place] [address] Care Team Providers Care Wheel Polisher Name Role Phone Maximilian Fall MD Primary Care Provider [phone] Encounter Details Date Type Department Care Team (Latest Contact Info) Description 09/04/2016 8:11 EDT - 09/04/2016 23:59 EDT Hospital Encounter [address] [address] Unknown, Provider, Discharge Disposition: Home or Self Care Social History Tobacco Use Types Packs/Day Years Used Date Smoking Tobacco: Never Assessed Sex and Gender Information Value Date Recorded Sex Assigned at Not on file Gender Identity Not on file Sexual Orientation Not on file documented as of this encounter Discharge Disposition Disposition Code Departure Means Destination Home or Self Jail documented in this encounter Plan of Treatment Not on file documented as of this encounter Visit Diagnoses Not on filedocumented in this encounter Care Teams Wheel Polisher Relationship Specialty Start Date End Date Maximilian Fall MD PCP - General 03/18/16 documented as of this encounter
--- OUTSIDE RECORDS SUMMARY | 2024-07-27 21:04 | XMS_ITS | Encounter Summary ---
Author Organization [facility] Address [address] [place] [address] Care Team Providers Care Table Tender Sludge Name Role Phone Sharad Leon MD Primary Care Provider Unavail able Encounter Details Date Type Department Care Team (Late st Contact Info) Description 03/13/2016 Results Only [facility] [phone] Marcy Laurent, DO [address] [place] [address] Social History Tobacco Use Types [...] ? BRIAN RODRIGUEZ ? Accession #: ? [id number] ? : ? 1950 (Age: 65) ??M [...] adjacent to the proximal stapled margin, two circulation sales representative cross sections and one-half of the longitudinally bisected distal tip are submitted in 1. Dr. Beth 03/17/2016 3:13 PM End of Report [facility] 03/13/2016 19:4 2 EDT 03/14/2016 19:42 EDT Marcy Laurent DO PATHOLOGY ORDERABLES [facility] [address] [place] [address] * SUSCEPTIBILITY (03/13/2016 12:15 EDT) Result ESCHERICHIA COLI Organism identification performed by client. 03/17/2016 7:51 EDT [facility] URINE / Unknown [...] - GENER AL ORDERABLES Performing Organization Address City/[facility] Co de Phone Number [facility] [address] [place] [address] documented in this encounter Visit Diagnoses Not on filedocumented in this encounter Care Teams Table Tender Sludge Relationship Specialty Start Date End Date Sharad Leon MD PCP - General 12/07/09 03/17/16 documented as of this encounter
--- OUTSIDE RECORDS SUMMARY | 2024-07-27 21:04 | XMS_ITS | Encounter Summary ---
Author Organization [facility] Address [facility] [place] [address] Care Team Providers Care Jig Mill Operator Name Role Phone Duong Deacon Wells APRN Primary Care Provider [phone] Reason for Visit * Reason Comments Medication Refill Encounter Details Date Type Department Care Team (Late st Contact Info) Description 07/23/2024 Refill Dermatology at [facility] [address] [place] [address] Gómez Mercer MD [facility] [address] EDD[address] [place] [address] Emanuel rodriguez Social History Tobacco Use Types Packs/Day Years Used Date Smoking Tobacco: Former Cigarettes 4 30 1 12/01/1961 - 10/01/1992 Smokeless Tobacco: Former Chew Comments:Denies vaping Alcohol Use Standard Drinks/Week Comments Yes 0 (1 standard drink = 0.6 oz pur e alcohol) twice a year [facility] Utilities Answer Date Recorded In the [...] any time in the past 12 m [facility], were you homeless or living [...] Vascular Unit Level 4 [place] [address] Faheem Joy MD [facility] [address] 08/15/2024 9:00 AM EDT Office Visit Gastroenterology at [place] [phone] Dion Barlow MD [facility] [place] [address] 09/01/2024 9:40 AM EDT Office Visit Cardiology at [address] [place] [address] Franky Shaver MD [facility] [place] [address] 09/01/2024 11:20 AM EDT Office Visit Dermatology at [facility] [address] [place] [address] Gómez Mercer [facility] [place] [address] 09/21/2024 2:45 PM EDT Office Visit Pain and Spine Center at [place] [phone] Trung Hoyos MD [facility] [place] [address] documented as of this encounter Visit Diagnoses Diagnosis Tinea cruris Dermatophytosis of groin and perianal area documented in this encounter Care Teams Jig Mill Operator Relationship Specialty Start Date End Date Deacon Watters APRN [address] [facility] [address] [place] [address] PCP - General Family Medicine 02/17/22 documented as of this encounter
--- OUTSIDE RECORDS SUMMARY | 2024-07-27 21:04 | XMS_ITS | Encounter Summary ---
Author Organization [facility] Address [address] [place] [address] Care Team Providers Care Balance Truing Inspector Name Role Phone Maximilian Fall MD Primary Care Provider [phone] Encounter Details Date Type Department Care Team (Late st Contact Info) Description 04/10/2020 Lab Requisition [facility] Pathology & Laboratory Medicine - [address] [address] Outr Resulting Lab, Provider Social History Tobacco [...] 0.0 - 6.5 ng/mL 04/11/2020 10:46 EDT [facility] Blood VENOUS BLOOD / Unknown 04/10/2020 9:15 EDT 04/10/2020 15:53 EDT Narrative [facility] - 04/11/2020 10:46 EDT NOTE: Serum PSA concentration should not be interpreted as absolute evidence for the presence or absence of malignant disease. Assayed on Siemens ADVIA EcoSynthetixaur XPT using chemiluminescent technology.??Values obtained by using different assay methods cannot be used interchangeably. Provider Outr Resulting Lab CHEMISTRY & BLOOD GAS ORDERABLES [facility] [address] [place] [address] documented in this encounter Visit Diagnoses Not on filedocumented in this encounter Care Teams Balance Truing Inspector Relationship Specialty Start Date End Date Maximilian Fall MD PCP - General 03/18/16 documented as of this encounter
--- OUTSIDE RECORDS SUMMARY | 2024-07-27 21:05 | XMS_ITS | Encounter Summary ---
Author Organization [facility], Located Within [facility] [place] [address] Care Team Providers Care Slubber Frame Changer Name Role Phone Deacon Watters APRN Primary Care Provider [phone]- [phone] Encounter Details Date Type Department Care Team (Late st Contact Info) Description 06/29/2024 7:25 PM EDT Ancillary Procedure [place] [address] Deacon Watters APRN [address] [place] [address] Social History Tobacco Use Types Packs/Day Years [...] Vascular Unit Level 4 [place] [phone] Faheem Joy MD [facility] [place] [address] 08/15/2024 9:00 AM EDT Office [place] [phone] Dion Barlow MD [facility] [place] [address] 09/01/2024 9:40 AM EDT Office Visit Cardiology at [address] [place] [phone] Franky Shaver MD [facility] [place] [address] 09/01/2024 11:20 AM EDT Office Visit Dermatology at [facility] [address] [place] [phone] Gómez Mercer MD [facility] [place] [address] 09/21/2024 2:45 PM EDT Office Visit [facility] [place] [address] Trung Hoyos MD [facility] [place] [address] documented as of this encounter Procedures Procedure Name Priority Date/Time Associated Diagnosis Comments FILM LIBRARY STORAGE ONLY DX CHEST Routine 06/29/2024 7:22 PM EDT documented in this encounter Results * Film Library- Storage Only DX Chest (06/29/2024 7:22 PM EDT) Narrative [facility] - 06/29/2024 7:22 PM EDT This exam is auto-finalizing. It's purpose is for storage only. Deacon Watters NON DESTRUCTIVE TESTING INSPECTOR IMG FILM LIBRARY O RDERABLES DH [place], [place] documented in this encounter Visit Diagnoses Not on filedocumented in this encounter Care Teams Slubber Frame Changer Relationship Specialty Start Date End Date Deacon Watters APRN [address] [place] [address] PCP - General Family Medicine 02/17/22 documented as of this encounter
--- OUTSIDE RECORDS SUMMARY | 2024-07-27 21:05 | XMS_ITS | Encounter Summary ---
Author Organization [facility] Address [facility] [place] [address] Care Team Providers Care Director Of Sustainability Name Role Phone Deacon Watters APRN Primary Care Provider [phone]- [phone] Reason for Referral * Consultation (Routine) - Authorized Specialty Diagnoses / Procedures Referred By Contac t Referred To Contact Cardiology Diagnoses NSTEMI (non-ST elevated myocardial infarction) Ronel Hensley MD [facility] [place] [address] [facility] Cardiology [address] [place] [phone] Referral ID Status Reason Start Date Expiration Date Visits Requested Visits Authorized [id number] Authorized Consult, Test & Treat 07/04/2024 07/04/2025 1 1 * Consultation (Routine) - Authorized Specialty Diagnoses / Procedures Referred By Contac t Referred To Contact Cardiology Diagnoses NSTEMI (non-ST elevated myocardial infarction) Armond Denny MD [facility] [place] [address] Cardiac Rehab, [facility] [address] [place] [address] [place] [address] Referral ID Status Reason Start Date Expiration Date Visits Requested Visits Authorized [id number] Authorized Consult, Test & Treat 07/04/2024 12/31/2024 36 36 Reason for Visit * Auth/Cert (Routine) Specialty Diagnoses / Procedures Referred By Contac t Referred To Contact Diagnoses NSTEMI (non-ST elevated myocardial infarction) NSTEMI Triston Godinez MD [facility] [place] [address] [facility] Referral ID Status Reason Start Date Expiration Date Visits Re quested Visits Authorized [id number] 1 1 Encounter Details Date Type Department Care Team (Latest Contact Info) Description 06/30/2024 3:44 PM EDT - 07/04/2024 3:25 PM EDT Hospital Encounter Heart and Vascular Unit Level 3 Wing B at [place] [phone] Triston Godinez MD [facility] [place] [address] Armond Denny MD [facility] [place] [address] NSTEMI (non-ST elevated myocardial infarction) (Primary Dx) Discharge Disposition: Home Social History Tobacco Use Types Packs/Day Years Used Date Smoking Tobacco: Former Cigarettes 4 30 1 12/01/1961 - 10/01/1992 Smokeless Tobacco: Former Chew Comments:Denies vaping Alcohol Use Standard Drinks/Week Comments Yes 0 (1 standard drink = 0.6 oz pur e alcohol) twice a year [facility] Utilities Answer Date Recorded In the past 12 months has [employer] electric, gas, oil, or water company threatened [...] any time in the past 12 [facility], were you homeless or living in [...] HLD, migraines, DM2, and UC who presented[facility] for chest pain and was transferred to [facility] for NSTEMI found [...] He was discharged with 6 days of [id number] mg BID after receiving 1 day of [...] Jardiance allergy. PCP Contact Information: Deacon Watters, [employer] [address] / [facility] [id number] Discharge Diagnoses (Hospital Problems) and Secondary Diagnoses [...] #HTN #HLD Mr. Rodriguez was transferred to [facility] for NSTEMI with trops of 4143 and 20,000 at the OSH, where he was loaded with ASA, plavix and started on heparin gtt. At [facility], his trops trended [...] dose. Would consider changes to his regimen chcf to reduce the A1c. #GERD He takes [...] to exclude urinary tract infection. Cardiac Catheterization: ([facility]) RIGHT dominance LVEDP 10 Artery Lesion Intervention [...] 9:00 AM Dion Osullivan MD Gastroenterology at [facility] Arrive at: Emergency Doctor Area [phone] 09/01/2024 11:20 AM Gómez Mercer MD Dermatology at [facility] Arrive at: Emergency Doctor [address] [place] [phone] 09/21/2024 2:45 PM Trung Hoyos MD Pain and Spine Center at [facility] Arrive at: Emergency Doctor Area [phone] Future Orders Complete By Expires Referral to Cardiac Rehab [[id number] Custom] As directed Process Instructions: If no progress note charted, please enter Clinical details in comments. Scheduling Instructions: Questions: My question or request is: NSTEMI, PCI, HFrEF- cardiac rehab at [facility] Referral to Cardiology [REF12 Custom] As directed [...] appointments: During 8am-5pm Thursday through Thursday call [phone] to speak with a nurse in the cardiology clinic All other times call [phone] and ask to speak to the carpenter foreman applications manager. Home oxygen therapy: none Arrangements for VNA/home care: none Follow up Appointments: Future Appointments Date Time Provider Department Center 08/15/2024 9:00 AM Dion Osullivan MD [facility] 09/01/2024 11:20 AM Gómez Mercer MD [facility] 09/21/2024 2:45 PM Trung Hoyos MD [facility] Pain Sp [facility] [employer]: [facility] - referral sent and they are aware you need an appointment. If they do not reach out to you with an appointment in 1 week, call and ask for the cardiology clinic. PCP: Deacon Watters APRN at [phone] on July 08 at 4 PM Your Inpatient Doctor(s) at [facility]: Armond Denny MD - Attending physician Your Primary Care Provider: Deacon Watters APRN [address] / [facility] [id number] If you have non-emergent questions between now and the time of your follow up appointments: During 8am-5pm Thursday through Thursday call [phone] to speak with a nurse in the cardiology clinic All other times call [phone] and ask to speak to the carpenter foreman applications manager. Provider Contact Information: Deacon Watters APRN [address] / [facility] [id number] Discharge References/Attachments: Discharge References/Attachments None For questions regarding this document or issues relating to this hospitalization on the Medical Service, please contact your inpatient physician through the [facility] Food Service Utility Worker . Issues afterhours and on weekends will be handled by the [employer] staff on-call. Signed: Ronel Hensley MD [...] appointments: During 8am-5pm Thursday through Thursday call [phone] to speak with a nurse in the cardiology clinic All other times call [phone] and ask to speak to the carpenter foreman applications manager. Home oxygen therapy: none Arrangements for VNA/home care: none Follow up Appointments: Future Appointments Date Time Provider Department Center 08/15/2024 9:00 AM Dion Osullivan MD [facility] GASTRO [facility] 09/01/2024 11:20 AM Gómez Mercer MD [facility] 09/21/2024 2:45 PM Trung Hoyos MD [facility] Pain Sp [facility] Magnetic T[employer] Winder: [facility] - referral sent and they are aware you need an appointment. If they do not reach out to you with an appointment in 1 week, call and ask for the cardiology clinic. PCP: Deacon Watters APRN at [phone] on July 08 at 4 PM Your Inpatient Doctor(s) at [facility]: Armond Denny MD - Attending physician Your Primary Care Provider: Deacon Watters APRN [address] [facility] [address] [facility] / [facility] [address] If you have non-emergent questions between now and the time of your follow up appointments: During 8am-5pm Thursday through Thursday call [phone] to speak with a nurse in the cardiology clinic All other times call [phone] and ask to speak to the carpenter foreman applications manager. documented in this encounter Medications at Time [...] migraines, DM2, and UC whowas transferred to [facility] for NSTEMI and [...] 3.66) performed by Dion Osullivan MD at [facility] PRO COLONOSCOPY, BIOPSY N/A 02/22/2019 COLONOSCOPY FLEXIBLE, WITH BX (WRVU 3.66) performed by Dion Osullivan MD at [facility] PRO COLONOSCOPY, BIOPSY N/A 03/28/2022 COLONOSCOPY FLEXIBLE, WITH BX (WRVU 3.66) performed by Mona Turner MD at [facility] PRO COLONOSCOPY, BIOPSY N/A 01/20/2024 COLONOSCOPY FLEXIBLE, WITH BX (WRVU 3.56) performed by Anthony Hamlin MD at [facility] PRO COLONOSCOPY, DIAGNOSTIC 11/27/2011 COLONOSCOPY, DIAGNOSTIC performed by Dion OSULLIVAN at [facility] PRO COLONOSCOPY, DIAGNOSTIC 07/13/2014 COLONOSCOPY, DIAGNOSTIC performed by Dion Osullivan MD at [facility] PRO COLONOSCOPY, REMV LESN, SNARE N/A 02/22/2019 COLONOSCOPY, POLYPECTOMY, REMOVAL LESION BY SNARE (WRVU 4.67) performed by Dion Osullivan MD at [facility] PRO COLONOSCOPY, REMV LESN, SNARE N/A 02/26/2021 COLONOSCOPY, POLYPECTOMY, REMOVAL LESION BY SNARE (WRVU 4.67) performed by Dion Osullivan MD at [facility] PRO SIGMOIDOSCOPY, DIAGNOSTIC 03/16/2012 FLEXIBLE SIGMOIDOSCOPY performed by YUDI MALLOY at [facility] PRO UPPER GI ENDOSCOPY, DIAGNOSTIC N/A 04/28/2019 EGD, UPPER GI ENDOSCOPY performed by Iza Coates MD at [facility] UPPER GI ENDOSCOPY, EXAM 10/01/2012 UPPER GI ENDOSCOPY performed by Dion OSULLIVAN at [facility] Social History: Home set-up: Lives on the first floor of a two level home in [place], [place] Stairs: FOS with bilateral rails vs a few stairs through the back to the first level, 8 step between rooms Bathroom Set-up: Tub-shower with grab bars, no shower chair Baseline Mobility: Ambulates without an assistive device. Independent with I/ADLs, including driving. 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 He enjoys taking care of his property including [employer]. He sleeps in a flat bed. 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 [...] Moderate Complexity Evaluation Qing Braxton, PT Pager: [phone] Physical Therapy Inpatient Rehabilitation Department * Day, Tray Bassett OT - 07/04/2024 9:40 AM EDT Occupational Therapy Evaluation Patient profile: Brian Rodriguez is a 74 y.o. male admitted on 06/30/2024 with PMHx of HTN, HLD, migraines, DM2, and UC who was transferred to [facility] for NSTEMI and now found to have HFrEF. Pt now s/p PCIto LCX. Past Medical History: Diagnosis Date Asthma 10/01/2011 Diabetes mellitus 10/01/2011 GERD (gastroesophageal reflux disease) 10/01/2011 Hearing loss 10/01/2011 Hydrocele 10/01/2011 Ulcerative colitis 10/01/2011 Past Surgical History: Procedure Laterality Date PRO COLONOSCOPY, BIOPSY N/A 02/12/2017 COLONOSCOPY FLEXIBLE, WITH BX (WRVU 3.66) performed by Dion Osullivan MD at [facility] PRO COLONOSCOPY, BIOPSY N/A 02/22/2019 COLONOSCOPY FLEXIBLE, WITH BX (WRVU 3.66) performed by Dion Osullivan MD at [facility] PRO COLONOSCOPY, BIOPSY N/A 03/28/2022 COLONOSCOPY FLEXIBLE, WITH BX (WRVU 3.66) performed by Mona Turner MD at [facility] PRO COLONOSCOPY, BIOPSY N/A 01/20/2024 COLONOSCOPY FLEXIBLE, WITH BX (WRVU 3.56) performed by Anthony Hamlin MD at [facility] PRO COLONOSCOPY, DIAGNOSTIC 11/27/2011 COLONOSCOPY, DIAGNOSTIC performed by Dion OSULLIVAN at [facility] PRO COLONOSCOPY, DIAGNOSTIC 07/13/2014 COLONOSCOPY, DIAGNOSTIC performed by Dion Osullivan MD at [facility] PRO COLONOSCOPY, REMV LESN, SNARE N/A 02/22/2019 COLONOSCOPY, POLYPECTOMY, REMOVAL LESION BY SNARE (WRVU 4.67) performed by Dion Osullivan MD at [facility] PRO COLONOSCOPY, REMV LESN, SNARE N/A 02/26/2021 COLONOSCOPY, POLYPECTOMY, REMOVAL LESION BY SNARE (WRVU 4.67) performed by Dion Osullivan MD at [facility] PRO SIGMOIDOSCOPY, DIAGNOSTIC 03/16/2012 FLEXIBLE SIGMOIDOSCOPY performed by YUDI MALLOY at [facility] PRO UPPER GI ENDOSCOPY, DIAGNOSTIC N/A 04/28/2019 EGD, UPPER GI ENDOSCOPY performed by Iza Coates MD at [facility] UPPER GI ENDOSCOPY, EXAM 10/01/2012 UPPER GI ENDOSCOPY performed by Dion OSULLIVAN at [facility] Social History: Home set-up: Lives on the first floor of a two level home in [place], [place] Stairs: FOS with bilateral rails vs a few stairs through the back to the first level, 8 step between rooms Bathroom Set-up: Tub-shower with grab bars, no shower chair Baseline Mobility: Ambulates without an assistive device. Independent with I/ADLs, including driving. 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 He enjoys taking care of his property including [employer]. He sleeps in a flat bed. 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 [...] and measurable assessment of functional outcome. Pager: [phone] Tray Logan OTR/L Occupational Therapy Rehabilitation Department * Armond Denny MD - 07/03/2024 7:03 AM EDT Inpatient Cardiology Progress Note Patient Name: Brian Rodriguez Date of Admission: 06/30/2024 ( Hospital Day 3 days ) Service: S2 ID: Brian Rodriguez is a 74 y.o. male with PMHx of HTN, HLD, migraines, DM2, and UC who presented [facility] for chest pain and was transferred to [facility] for NSTEMI found [...] 1809 PROBNP 2,259* Trops: OSH 4143 >20,000>> [facility] 1234 and 1274 [...] to exclude urinary tract infection. Cardiac Catheterization: ([facility]) RIGHT dominance LVEDP 10 Artery Lesion Intervention [...] DM2, and UC who was transferred to [facility] for NSTEMI and [...] Will need outpatient follow up for termite helper changes. - holding home glipizide and metformin [...] Katia Reid MD Internal Medicine PGY-3 Pager [phone], M1-S2 Service CARDIOLOGY STAFF NOTE I have personally interviewed and examined the patient and reviewed appropriate data, including labs, ECGs and other diagnostic studies. I agree with the principal findings documented above. The assessment and plan were formulated in discussion with me. Armond Denny MD, [facility], [facility] Staff [employer] client success manager * Armond Denny MD - 07/02/2024 6:17 AM EDT Inpatient Cardiology Progress Note Patient Name: Brian Rodriguez Date of Admission: 06/30/2024 ( Hospital Day 2 days ) Service: S2 ID: Brian Rodriguez is a 74 y.o. male with PMHx of HTN, HLD, migraines, DM2, and UC who presented [facility] for chest pain and was transferred to [facility] for NSTEMI found [...] 1809 PROBNP 2,259* Trops: OSH 4143 >20,000>> [facility] 1234 and 1274 [...] to exclude urinary tract infection. Cardiac Catheterization: ([facility]) RIGHT dominance LVEDP 10 Artery Lesion Intervention [...] DM2, and UC who was transferred to [facility] for NSTEMI and [...] 7.3. Will need outpatient follow up for chcf changes. - holding home glipizide and metformin [...] Ronel Hensley MD Internal Medicine PGY-1 Pager [phone], M1-S2 Service CARDIOLOGY STAFF NOTE I have personally interviewed and examined the patient and reviewed appropriate data, including labs, ECGs and other diagnostic studies. I agree with the principal findings documented above. The assessment and plan were formulated in discussion with me. Armond Denny MD, [facility], [facility] Staff [employer] client success manager * Armond Denny MD - 07/01/2024 6:15 AM EDT Inpatient Cardiology Progress Note Patient Name: Brian Rodriguez Date of Admission: 06/30/2024 ( Hospital Day 1 day ) Service: S2 ID: Brian Rodriguez is a 74 y.o. male with PMHx of HTN, HLD, migraines, DM2, and UC who presented [facility] for chest pain and was transferred to [facility] for NSTEMI found to have HFrEF. Active Problems: Active Hospital Problems Diagnosis NSTEMI (non-ST elevated myocardial infarction) Resolved Hospital Problems No resolved problems to display. 24 hr events: Yesterday - transferred to [facility] for NSTEMI Overnight [...] 1809 PROBNP 2,259* Trops: OSH 4143 >20,000>> [facility] 1234 and 1274 [...] DM2, and UC who was transferred to [facility] for NSTEMI and [...] 7.3. Will need outpatient follow up for chcf changes. - holding home glipizide and metformin [...] Ronel Hensley MD Internal Medicine PGY-1 Pager [phone], M1-S2 Service CARDIOLOGY STAFF NOTE I have personally interviewed and examined the patient and reviewed appropriate data, including labs, ECGs and other diagnostic studies. I agree with the principal findings documented above. The assessment and plan were formulated in discussion with me. Plan for cath today and introduction of full complement of medical therapies for ACS/HFrEF. Armond Denny MD, [facility], [facility] Staff [employer] client success manager documented in this encounter H&P Notes * ArjunJudie, [employer] - 07/01/2024 9:33 AM EDT Images from [...] PCP: Deacon Watters APRN PCP phone #: [phone] ID/Chief Complaint: Brian Rodriguez is a 74 y.o. male with PMHx of HTN, HLD, migraines, DM2, and UC who presented to [facility] for chest pain and was transferred to [facility] for NSTEMI. History [...] infarction) Ulcerative colitis Colonoscopy 04/08/10 (Dr. Gomes [facility]) - inflammation only within the rectum and sigmoid; extent of the exam was to the hepatic flexure; biopsies proximal to the sigmoid nl Repeat exam 11/27/11 ([facility] [...] ascending colon. Several HPs and one TA. [place] 03/2022 - [place] 1 limited to rectosigmoid, [...] in the last 7068 hours. Invalid input(s): [id number] Heme: No results for input(s): LDH, HAPTOGLOBIN, [...] DM2, and UC who was transferred to [facility] for NSTEMI. Given [...] Admit to Cardiology, S2 Team Pager # [phone] #NSTEMI > trops elevated to 4143 and 20,000 at OSH - s/p ASA and Plavix load - heparin gtt - continue 81 mg ASA - continue 75 mg plavix - repeat EKG with posterior leads - restarted atorvastatin 80 mg - TTE pending - trending trops here - NPO at midnight for [facility] tomorrow #Migraines - holding propranolol for now, [...] in an outpatient cardiac rehabilitation program at [facility] was discussed. Patient agrees to a referral [...] Operative Note Patient Name: Brian Rodriguez : [id number] MR#: [id number] Case Date: 07/01/2024 Surgeon: Surgeons and Role: [...] 07/01/2024 12:11 PM EDT Brian completed a [place] Advanced directive and stated that if [...] surrogate would be surrogate decision maker per [place] surrogate decision making law. (Only good for 180 days) Any patient receiving care in [place] must abide by [place] law. The hierarchy for surrogate decision making [...] (i) The agent with financial power of tax associate attorney or a conservator appointed in accordance [...] lives on 2nd floor. Son lives in [place] the property. In the last 12 [...] Current DME: none Home Address confirmed as: [address] [place] [id number] Social & Family Supports: All names listed below confirmed with patient as current and correct Extended Emergency Contact Information Primary Emergency Contact: Sabrina Eisenberg Address: [address] [place] [phone] [facility] Mobile Relation: Child Secondary Emergency Contact: [...] Yes ; Prescription Coverage: Yes Preferred Pharmacy: [id number] - [facility], [place] - [address] [facility] [address] [facility] [address] [place] Status: Patient is a : No Primary Care Provider confirmed: Deacon Watters, [employer] [phone] Potential Needs for Transition of Care: none [...] Vascular Unit Level 4 [place] [address] Faheem Joy MD [facility] [place] [address] 08/15/2024 9:00 AM EDT Office [place] [address] Dion Osullivan MD [facility] [place] [address] 09/01/2024 9:40 AM EDT Office Visit Cardiology at [address] [address] Franky Shaver MD [facility] [place] [address] 09/01/2024 11:20 AM EDT Office Visit Dermatology at [address] [address] Gómez Mercer MD [facility] DR EDDIE [place] [address] 09/21/2024 2:45 PM EDT Office Visit Pain [place] [address] Trung Hoyos MD [facility] [place] [address] Scheduled Referrals Name Type Priority Associated Diagnoses [...] PM EDT URINALYSIS BEAKER MICROSCPIC REFLEX EXAM ([facility]) Routine 07/03/2024 3:02 PM EDT URINALYSIS [...] - 199 mg/dL 07/04/2024 2:12 PM EDT [facility] Comment:Supplemental ranges: <140 mg/dL before meals <180 mg/dL all other times of the day. Blood CAPILLARY BLOOD / Unknown 07/04/2024 1:49 PM EDT 07/04/2024 2:12 PM EDT Armond Denny MD POINT OF CARE TEST O CEE Performing Organization Address City/[facility] Co de Phone Number [facility] [place] [address] * (ABNORMAL) POC, GLUCOSE (07/04/2024 11:55 AM EDT) Glucometer, POC 287(H) 65 - 199 mg/dL 07/04/2024 11:55 AM EDT [facility] Comment:Supplemental ranges: <140 mg/dL before meals <180 mg/dL all other times of the day. Blood CAPILLARY BLOOD / Unknown 07/04/2024 11:55 AM EDT 07/04/2024 11:55 AM EDT Armond Denny MD POINT OF CARE TEST O RDERABLES [facility] [place] [address] * (ABNORMAL) POC, GLUCOSE (07/04/2024 11:18 AM EDT) Glucometer, POC 259(H) 65 - 199 mg/dL 07/04/2024 11:32 AM EDT [facility] Comment:Supplemental ranges: <140 mg/dL before meals <180 mg/dL all other times of the day. Blood CAPILLARY BLOOD / Unknown 07/04/2024 11:18 AM EDT 07/04/2024 11:32 AM EDT Armond Denny MD POINT OF CARE TEST O RDERABLES Performing Organization Address [facility] Co de Phone Number [facility] [place] [address] * POC, GLUCOSE (07/04/2024 8:04 AM EDT) Glucometer, POC 111 65 - 199 mg/dL 07/04/2024 8:04 AM EDT [facility] Comment:Supplemental ranges: <140 mg/dL before meals <180 mg/dL all other times of the day. Blood CAPILLARY BLOOD / Unknown 07/04/2024 8:04 AM EDT 07/04/2024 8:04 AM EDT Armond Denny MD POINT OF CARE TEST O RDERAOMAR Performing Organization Address City/[facility]/ZIP Co de Phone Number [facility] [place] [address] * Magnesium (07/04/2024 1:43 AM EDT) Magnesium 0.80 0.69 - 1.07 mMol/L 07/04/2024 2:23 AM EDT [facility] Blood VENOUS BLOOD SPECIMEN / Unknown IP Care Team Draw / Unknown 07/04/2024 1:43 AM EDT 07/04/2024 1:52 AM EDT Triston Godinez MD CHEMISTRY ORDERABLES [facility] [place] [address] * (ABNORMAL) Basic Metabolic Panel (07/04/2024 1:43 AM EDT) Glucose 156 65 - 199 mg/dL 07/04/2024 2:23 AM EDT [facility] [facility] Comment:Glucose Concentratio n >=200 mg/dL plus symptoms is consistent with Diabetes Mellitus. Blood Urea Nitrogen 12 10 - 20 mg/dL 07/04/2024 2:23 AM EDT [facility] Creatinine 1.27 0.80 - 1.50 mg/dL 07/04/2024 2:23 AM [facility] Sodium 141 135 - 145 mMol/L 07/04/2024 2:23 AM [facility] Potassium 3.9 3.5 - 5.0 mMol/L 07/04/2024 2:23 AM [facility] Chloride 108(H) 98 - 107 mMol/L 07/04/2024 2:23 AM [facility] Carbon Dioxide 22 22 - 31 mMol/L 07/04/2024 2:23 AM [facility] Anion Gap 11 5 - 15 mMol/L 07/04/2024 2:23 AM [facility] Calcium 9.4 8.5 - 10.5 mg/dL 07/04/2024 2:23 AM [facility] Est Glomerular Filtration Rate - Male 59 mL/min/1. 73 m?? 07/04/2024 2:23 AM T [facility] Comment: This [...] AM EDT Triston Godinez MD CHEMISTRY ORDERABLES [facility] [place] [address] * (ABNORMAL) CBC (with Diff) (07/04/2024 1:43 AM EDT) White Blood Cell 5.05 4.00 - 9.50 x10(3)/mc L 07/04/2024 2:00 AM EDT [facility] Red Blood Cell 3.11(L) 4.58 - 5.54 x10(6)/mc L 07/04/2024 2:00 AM [facility] Hemoglobin 10.5(L) 13.7 - 16.5 g/dL 07/04/2024 2:00 AM [facility] Hematocrit 31.5(L) 40.5 - 48.5 % 07/04/2024 2:00 AM [facility] Mean Cell Volume 101.3(H) 82.9 - 93.1 fL 07/04/2024 2:00 AM [facility] Mean Cell Hemoglobin 33.8(H) 27.5 - 32.1 pg 07/04/2024 2:00 AM [facility] Mean Cell Hemoglobin Concentration 33.3 32.0 - 35.7 g/dL 07/04/2024 2:00 AM [facility] Platelet 145 145 - 357 x10(3)/mc L [facility] Mean Platelet Volume 11.5 7.6 - 12.9 fL 07/04/2024 2:00 AM [facility] RDW Standard Deviation 48.2(H) 36.0 - 45.0 fL 07/04/2024 2:00 AM [facility] RDW coefficient of variation 13.1 11.4 - 13.8 % 07/04/2024 2:00 AM [facility] NRBC% auto 0.0 % 07/04/2024 2:00 AM [facility] NRBC Absolute 0.00 0.00 - 0.00 x10(3)/mc L 07/04/2024 2:00 AM [facility] Neutrophil % 65.9 % 07/04/2024 2:00 AM [facility] Neutrophil Absolute (ANC) - Automated 3.33 1.70 - 6.10 x10(3)/mc L 07/04/2024 2:00 AM [facility] Lymph % 20.8 % 07/04/2024 2:00 AM [facility] Lymph Absolute 1.05 0.90 - 3.20 x10(3)/mc L 07/04/2024 2:00 AM [facility] Monocyte % 9.3 % 07/04/2024 2:00 AM [facility] Monocyte Absolute 0.47 0.30 - 0.90 x10(3)/mc L 07/04/2024 2:00 AM [facility] Eos % 3.0 % 07/04/2024 2:00 AM [facility] Eos Absolute 0.15 0.00 - 0.40 x10(3)/mc L 07/04/2024 2:00 AM [facility] Basophil % 0.6 % 07/04/2024 2:00 AM [facility] Baso Absolute 0.03 0.00 - 0.10 x10(3)/mc L 07/04/2024 2:00 AM [facility] Immature Gran % 0.4 % 2:00 AM EDT [facility] Immature Gran Absolute 0.02 0.00 - 0.04 x10(3)/mc L 07/04/2024 2:00 AM EDT [facility] Blood VENOUS BLOOD SPECIMEN / Unknown IP Care Team Draw / Unknown 07/04/2024 1:43 AM EDT 07/04/2024 1:52 AM EDT Triston Godinez MD HEMATOLOGY ORDERABLE S Performing Organization Address City/[facility]/ZIP Co de Phone Number [facility] [place] [address] * (ABNORMAL) POC, GLUCOSE (07/03/2024 8:02 PM EDT) Glucometer, POC 251(H) 65 - 199 mg/dL 07/03/2024 8:02 PM EDT [facility] Comment:Supplemental ranges: <140 mg/dL before meals <180 mg/dL all other times of the day. Blood CAPILLARY BLOOD / Unknown 07/03/2024 8:02 PM EDT 07/03/2024 8:02 PM EDT Armond Dneny MD POINT OF CARE TEST O RDERABLES Performing Organization Address City/[facility]/ZIP Co de Phone Number [facility] [place] [address] * (ABNORMAL) POC, GLUCOSE (07/03/2024 4:47 PM EDT) Glucometer, POC 217(H) 65 - 199 mg/dL 07/03/2024 4:47 PM EDT [facility] Comment:Supplemental ranges: <140 mg/dL before meals <180 mg/dL all other times of the day. Blood CAPILLARY BLOOD / Unknown 07/03/2024 4:47 PM EDT 07/03/2024 4:47 PM EDT Armond Denny MD POINT OF CARE TEST O RDERABLES Performing Organization Address City/[facility]/[place] [address] * (ABNORMAL) Urine culture (07/03/2024 3:02 PM EDT) Urine Culture 50,000-99,000 cfu/ml Escherichia coli(A) VITEK 2 METHOD 07/05/2024 8:01 AM EDT [facility] Urine Culture 10,000-49,000 cfu/ml mixed mucosal harika VITEK 2 METHOD 07/05/2024 8:01 AM EDT [facility] Urine URINE SPECIMEN [...] - GENER AL ORDERABLES Performing Organization Address City/[facility]/[place] [address] * (ABNORMAL) Urinalysis Microscopic Reflex to Culture (07/03/2024 3:02 PM EDT) RBC, Urine 2 0 - 3 /HPF 07/03/2024 3:40 PM EDT [facility] WBC, Urine 55(H) 0 - 3 /HPF 07/03/2024 3:40 PM EDT [facility] Squamous Epithelial Cells, Urine 1 0 - 5 /HPF 07/03/2024 3:40 PM EDT [facility] Hyaline Casts, Urine 3(H) 0 - 2 /LPF 07/03/2024 3:40 PM EDT [facility] Comment 07/03/2024 3:40 PM EDT [facility] Comment:Interpret results wi th caution, microscopic results are from a suboptimal specimen. Bacteria, Urine Many(A) None /HPF 3:40 PM EDT [facility] Urine URINE SPECIMEN OBTAINED BY CLEAN CATCH PROCEDURE / Unknown Non Blood Collection / Unknown 07/03/2024 3:02 PM EDT 07/03/2024 3:13 PM EDT Armond Denny MD URINE ORDERABLES Performing Organization Address [facility] de Phone Number [facility] [place] [address] * Urinalysis Microscopic with Reflex to Culture (07/03/2024 3:02 PM EDT) Urine URINE SPECIMEN OBTAINED BY CLEAN CATCH PROCEDURE / Unknown Non Blood Collection / Unknown 07/03/2024 3:02 PM EDT 07/03/2024 3:13 PM EDT Armond Denny MD URINE ORDERABLES Performing Organization Address [facility] Co de Phone Number [facility] [place] [address] * (ABNORMAL) Urinalysis with reflex Culture (07/03/2024 3:02 PM EDT) Glucose, Urine Dipstick Negative Negative 07/03/2024 3:40 PM EDT [facility] Protein, Urine Dipstick 30 mg/dL(A) Negative 07/03/2024 3:40 PM EDT [facility] Bilirubin, Urine Dipstick Small(A) Negative 07/03/2024 3:40 PM EDT [facility] Comment:Clinical correlation required for positive Urine Bilirubin results as false positive may occur with some drugs and drug related products. If a false positive is suspected a serum total bilirubin should be considered if clinically indicated. Urobilinogen, Urine Dipstick Normal Normal, 0.2 mg/dL, 1.0 mg/dL 07/03/2024 3:40 PM EDT [facility] pH, Urine (dipstick) 5.5 5.0 - 8.0 07/03/2024 3:40 PM EDT [facility] Blood, Urine Dipstick Negative Negative 07/03/2024 3:40 PM EDT [facility] Ketone, Urine Dipstick Trace(A) Negative 07/03/2024 3:40 PM EDT [facility] Nitrite, Urine Dipstick Positive(A) Negative 07/03/2024 3:40 PM EDT [facility] Leukocytes, Urine Dipstick Moderate(A) Negative 07/03/2024 3:40 PM EDT [facility] Specific [place] Urine Automated 1.024 1.005 - 1.030 07/03/2024 3:40 PM T [facility] Appearance, Urine Dipstick Cloudy(A) Clear 07/03/2024 3:40 PM EDT [facility] Color, Urine Dipstick Dark Yellow Yellow, Dark Yellow 07/03/2024 3:40 PM EDT [facility] Urine URINE SPECIMEN OBTAINED BY CLEAN CATCH PROCEDURE / Unknown Non Blood Collection / Unknown 07/03/2024 3:02 PM EDT 07/03/2024 3:13 PM EDT Armond Denny MD URINE ORDERABLES [facility] [place] [address] * POC, GLUCOSE (07/03/2024 11:21 AM EDT) Glucometer, POC 177 65 - 199 mg/dL 07/03/2024 11:21 AM EDT [facility] Comment:Supplemental ranges: <140 mg/dL before meals <180 mg/dL all other times of the day. Blood CAPILLARY BLOOD / Unknown 07/03/2024 11:21 AM EDT 07/03/2024 11:21 AM EDT Armond Denny MD POINT OF CARE TEST O CEE Performing Organization Address City/[facility] Co de Phone Number [facility] [place] [address] * POC, GLUCOSE (07/03/2024 7:24 AM EDT) Glucometer, POC 124 65 - 199 mg/dL 07/03/2024 7:24 AM EDT [facility] Comment:Supplemental ranges: <140 mg/dL before meals <180 mg/dL all other times of the day. Blood CAPILLARY BLOOD / Unknown 07/03/2024 7:24 AM EDT 07/03/2024 7:24 AM EDT Armond Denny MD POINT OF CARE TEST Ozzie MIKE Performing Organization Address City/[facility]/ZIP Co de Phone Number [facility] [place] [address] * Magnesium (07/03/2024 4:02 AM EDT) Magnesium 0.86 0.69 - 1.07 mMol/L 07/03/2024 4:41 AM EDT [facility] Blood VENOUS BLOOD SPECIMEN / Unknown IP Care Team Draw / Unknown 07/03/2024 4:02 AM EDT 07/03/2024 4:07 AM EDT Triston Godinez MD CHEMISTRY ORDERABLES [facility] [place] [address] * Basic Metabolic Panel (07/03/2024 4:02 AM EDT) Glucose 146 65 - 199 mg/dL 07/03/2024 4:41 AM [facility] Comment:Glucose Concentratio n >=200 mg/dL plus symptoms is consistent with Diabetes Mellitus. Blood Urea Nitrogen 15 10 - 20 mg/dL 07/03/2024 4:41 AM [facility] Creatinine 1.25 0.80 - 1.50 mg/dL 07/03/2024 4:41 AM [facility] Sodium 138 135 - 145 mMol/L 07/03/2024 4:41 AM [facility] Potassium 3.6 3.5 - 5.0 mMol/L 07/03/2024 4:41 AM [facility] Chloride 105 98 - 107 mMol/L 07/03/2024 4:41 AM [facility] Carbon Dioxide 22 22 - 31 mMol/L 07/03/2024 4:41 AM [facility] Anion Gap 11 5 - 15 mMol/L 07/03/2024 4:41 AM [facility] Calcium 9.2 8.5 - 10.5 mg/dL 07/03/2024 4:41 AM [facility] Est Glomerular Filtration Rate - Male 60 mL/min/1. 73 m?? 07/03/2024 4:41 AM [facility] Comment: This patient's estimated [...] AM EDT Triston Godinez MD CHEMISTRY ORDERABLES [facility] [place] [address] * (ABNORMAL) CBC (with Diff) (07/03/2024 4:02 AM EDT) White Blood Cell 5.90 4.00 - 9.50 x10(3)/mc L 07/03/2024 4:13 AM EDT [facility] Red Blood Cell 3.27(L) 4.58 - 5.54 x10(6)/mc L 07/03/2024 4:13 AM EDT [facility] Hemoglobin 11.0(L) 13.7 - 16.5 g/dL 07/03/2024 4:13 AM T [facility] Hematocrit 33.1(L) 40.5 - 48.5 % 07/03/2024 4:13 AM [facility] Mean Cell Volume 101.2(H) 82.9 - 93.1 fL 07/03/2024 4:13 AM EDT [facility] Mean Cell Hemoglobin 33.6(H) 27.5 - 32.1 pg 07/03/2024 4:13 AM [facility] Mean Cell Hemoglobin Concentration 33.2 32.0 - 35.7 g/dL 07/03/2024 4:13 AM [facility] Platelet 156 145 - 357 x10(3)/mc L 07/[facility]24 [facility] Mean Platelet Volume 11.3 7.6 - 12.9 fL 07/03/2024 4:13 AM [facility] RDW Standard Deviation 47.5(H) 36.0 - 45.0 fL 07/03/2024 4:13 AM [facility] RDW coefficient of variation 12.7 11.4 - 13.8 % 07/03/2024 4:13 AM [facility] NRBC% auto 0.0 % 07/03/2024 4:13 AM [facility] NRBC Absolute 0.00 0.00 - 0.00 x10(3)/mc L 07/03/2024 4:13 AM [facility] Neutrophil % 70.0 % 07/03/2024 4:13 AM [facility] Neutrophil Absolute (ANC) - Automated 4.13 1.70 - 6.10 x10(3)/mc L 07/03/2024 4:13 AM [facility] Lymph % 18.3 % 07/03/2024 4:13 AM [facility] Lymph Absolute 1.08 0.90 - 3.20 x10(3)/mc L 07/03/2024 4:13 AM [facility] Monocyte % 8.5 % 07/03/2024 4:13 AM [facility] Monocyte Absolute 0.50 0.30 - 0.90 x10(3)/mc L 07/03/2024 4:13 AM [facility] Eos % 2.4 % 07/03/2024 4:13 AM [facility] Eos Absolute 0.14 0.00 - 0.40 x10(3)/mc L 07/03/2024 4:13 AM [facility] Basophil % 0.5 % 07/03/2024 4:13 AM [facility] Baso Absolute 0.03 0.00 - 0.10 x10(3)/mc L 07/03/2024 4:13 AM [facility] Immature Gran % 0.3 % 4:13 AM EDT [facility] Immature Gran Absolute 0.02 0.00 - 0.04 x10(3)/mc L 07/03/2024 4:13 AM EDT [facility] Blood VENOUS BLOOD SPECIMEN / Unknown IP Care Team Draw / Unknown 07/03/2024 4:02 AM EDT 07/03/2024 4:07 AM EDT Triston Godinez MD HEMATOLOGY ORDERABLE S Performing Organization Address City/[facility]/ZIP Co de Phone Number [facility] [place] [address] * (ABNORMAL) POC, GLUCOSE (07/02/2024 8:45 PM EDT) Glucometer, POC 271(H) 65 - 199 mg/dL 07/02/2024 8:46 PM EDT [facility] Comment:Supplemental ranges: <140 mg/dL before meals <180 mg/dL all other times of the day. Blood CAPILLARY BLOOD / Unknown 07/02/2024 8:45 PM EDT 07/02/2024 8:46 PM EDT Armond Denny MD POINT OF CARE TEST O CEE Performing Organization Address [facility] Co de Phone Number [facility] [place] [address] * (ABNORMAL) POC, GLUCOSE (07/02/2024 4:18 PM EDT) Glucometer, POC 213(H) 65 - 199 mg/dL 07/02/2024 4:19 PM EDT [facility] Comment:Supplemental ranges: <140 mg/dL before meals <180 mg/dL all other times of the day. Blood CAPILLARY BLOOD / Unknown 07/02/2024 4:18 PM EDT 07/02/2024 4:19 PM EDT Armond Denny MD POINT OF CARE TEST O CEE Performing Organization Address City/[facility] Co de Phone Number [facility] [place] [address] * (ABNORMAL) POC, GLUCOSE (07/02/2024 11:21 AM EDT) Glucometer, POC 234(H) 65 - 199 mg/dL 07/02/2024 11:21 AM EDT [facility] Comment:Supplemental ranges: <140 mg/dL before meals <180 mg/dL all other times of the day. Blood CAPILLARY BLOOD / Unknown 07/02/2024 11:21 AM EDT 07/02/2024 11:21 AM EDT Armond Denny MD POINT OF CARE TEST O CEE Performing Organization Address [facility] Co de Phone Number [facility] [place] [address] * POC, GLUCOSE (07/02/2024 7:28 AM EDT) Glucometer, POC 171 65 - 199 mg/dL 07/02/2024 7:28 AM EDT [facility] Comment:Supplemental ranges: <140 mg/dL before meals <180 mg/dL all other times of the day. Blood CAPILLARY BLOOD / Unknown 07/02/2024 7:28 AM EDT 07/02/2024 7:28 AM EDT Armond Denny MD POINT OF CARE TEST O CEE Performing Organization Address City/[facility]/ZIP Co de Phone Number [facility] [place] [address] * Magnesium (07/02/2024 7:12 AM EDT) Magnesium 0.89 0.69 - 1.07 mMol/L 07/02/2024 8:09 AM EDT [facility] Blood VENOUS BLOOD SPECIMEN / Unknown IP Care Team Draw / Unknown 07/02/2024 7:12 AM EDT 07/02/2024 7:19 AM EDT Triston Godinez MD CHEMISTRY ORDERABLES [facility] [place] [address] * Basic Metabolic Panel (07/02/2024 7:12 AM EDT) Glucose 161 65 - 199 mg/dL 07/02/2024 8:[facility] Comment:Glucose Concentratio n >=200 mg/dL plus symptoms is consistent with Diabetes Mellitus. Blood Urea Nitrogen 13 10 - 20 mg/dL 07/02/2024 8:09 AM [facility] Creatinine 1.18 0.80 - 1.50 mg/dL 07/02/2024 8:09 AM [facility] Sodium 136 135 - 145 mMol/L 07/02/2024 8:09 AM [facility] Potassium 3.6 3.5 - 5.0 mMol/L 07/02/2024 8:09 AM [facility] Chloride 104 98 - 107 mMol/L 07/02/2024 8:09 AM [facility] Carbon Dioxide 24 22 - 31 mMol/L 07/02/2024 8:09 AM [facility] Anion Gap 8 5 - 15 mMol/L 07/02/2024 8:09 AM [facility] Calcium 8.8 8.5 - 10.5 mg/dL 07/02/2024 8:09 AM [facility] Est Glomerular Filtration Rate - Male 64 mL/min/1. 73 m?? 07/02/2024 8:09 AM [facility] Comment: This patient's estimated [...] AM EDT Triston Godinez MD CHEMISTRY ORDERABLES [facility] [place] [address] * (ABNORMAL) CBC (with Diff) (07/02/2024 7:12 AM EDT) White Blood Cell 5.99 4.00 - 9.50 x10(3)/mc L 07/02/2024 7:41 [facility] Red Blood Cell 3.36(L) 4.58 - 5.54 x10(6)/mc L 07/02/2024 7:41 AM EDT [facility] Hemoglobin 11.3(L) 13.7 - 16.5 g/dL 07/02/2024 7:41 AM [facility] Hematocrit 34.3(L) 40.5 - 48.5 % 07/02/2024 7:41 AM [facility] Mean Cell Volume 102.1(H) 82.9 - 93.1 fL 07/02/2024 7:41 AM [facility] Mean Cell Hemoglobin 33.6(H) 27.5 - 32.1 pg 07/02/2024 7:41 AM [facility] Mean Cell Hemoglobin Concentration 32.9 32.0 - 35.7 g/dL 07/02/2024 7:41 AM [facility] Platelet 155 145 - 357 x10(3)/mc L 07/02/2024 7:[facility] Mean Platelet Volume 11.3 7.6 - 12.9 fL 07/02/2024 7:41 AM [facility] RDW Standard Deviation 48.2(H) 36.0 - 45.0 fL 07/02/2024 7:41 AM [facility] RDW coefficient of variation 12.9 11.4 - 13.8 % 07/02/2024 7:41 AM [facility] NRBC% auto 0.0 % 07/02/2024 7:41 AM [facility] NRBC Absolute 0.00 0.00 - 0.00 x10(3)/mc L 07/02/2024 7:41 AM [facility] Neutrophil % 75.2 % 07/02/2024 7:41 AM [facility] Neutrophil Absolute (ANC) - Automated 4.50 1.70 - 6.10 x10(3)/mc L 07/02/2024 7:41 AM [facility] Lymph % 14.0 % 07/02/2024 7:41 AM [facility] Lymph Absolute 0.84(L) 0.90 - 3.20 x10(3)/mc L 07/02/2024 7:41 AM [facility] Monocyte % 8.7 % 07/02/2024 7:41 AM [facility] Monocyte Absolute 0.52 0.30 - 0.90 x10(3)/mc L 07/02/2024 7:41 AM [facility] Eos % 1.3 % 07/02/2024 7:41 AM [facility] Eos Absolute 0.08 0.00 - 0.40 x10(3)/mc L 07/02/2024 7:41 AM [facility] Basophil % 0.5 % 07/02/2024 7:41 AM [facility] Baso Absolute 0.03 0.00 - 0.10 x10(3)/mc L 07/02/2024 7:41 AM [facility] Immature Gran % 0.3 % 7:41 AM EDT [facility] Immature Gran Absolute 0.02 0.00 - 0.04 x10(3)/mc L 07/02/2024 7:41 AM EDT [facility] Blood VENOUS BLOOD SPECIMEN / Unknown IP Care Team Draw / Unknown 07/02/2024 7:12 AM EDT 07/02/2024 7:19 AM EDT Triston Godinez MD HEMATOLOGY ORDERABLE S [facility] [place] [address] * CT Abdomen & Pelvis w Contrast (07/02/2024 3:13 AM EDT) [employer] WORKSTATION ID [id number] RAD Anatomical Region Laterality Modality Abdomen, Pelvis [...] questions please contact the health critical care unit nurse that requested your imaging first. ? Electronically signed by: Gutierrez Hamilton MD, [facility] ([phone]), at 07/02/2024 9:20 AM Narrative 07/02/2024 9:20 [...] have questions please contactthe health critical care unit nurse that requested your imaging first. Electronically signed by: Gutierrez Hamilton MD, [facility]([phone]), at 07/02/2024 9:20 AM Triston Godinez MD IMG CT ORDERABLES * POC, GLUCOSE (07/01/2024 7:58 PM EDT) Glucometer, POC 84 65 - 199 mg/dL 07/01/2024 7:59 PM EDT [facility] Comment:Supplemental ranges: <140 mg/dL before meals <180 mg/dL all other times of the day. Blood CAPILLARY BLOOD / Unknown 07/01/2024 7:58 PM EDT 07/01/2024 7:59 PM EDT Armond Denny MD POINT OF CARE TEST O CEE Performing Organization Address [facility] Co de Phone Number [facility] [place] [address] * POC, GLUCOSE (07/01/2024 6:41 PM EDT) Glucometer, POC 91 65 - 199 mg/dL 07/01/2024 6:41 PM EDT [facility] Comment:Supplemental ranges: <140 mg/dL before meals <180 mg/dL all other times of the day. Blood CAPILLARY BLOOD / Unknown 07/01/2024 6:41 PM EDT 07/01/2024 6:41 PM EDT Armond Denny MD POINT OF CARE TEST O CEE Performing Organization Address [facility] Co de Phone Number [facility] [place] [address] * EKG 12 Lead (07/01/2024 5:24 PM EDT) Ventricular rate 77 BPM MUSE SYSTEM Atrial Rate 77 BPM MUSE SYSTEM P-R Interval 178 ms MUSE SYSTEM QRS Duration 138 ms MUSE SYSTEM Q-T Interval 418 ms MUSE SYSTEM QTC Calculated (Bezet) 473 ms MUSE SYSTEM Calculated P [place] 63 degrees MUSE SYSTEM Calculated R [place] 87 degrees MUSE SYSTEM Calculated T [place] 8 degrees MUSE SYSTEM INTERPRETATION Normal sinus [...] Narrative 07/01/2024 7:47 PM EDT ?[facility] ? Cardiac Catheterization/Intervention Report ? Patient Name: Brian Rodriguez. ? Procedure Date: 07/01/2024 ? A #: [id number] ? Primary Physician: Mogadam, Emad ? Case #: [id number] ? File Name: [id number] ? Catheterization Order Number: [id number] ? [facility] ? Final Report [place], [place] ? Patient Name: ? Brian M. Rodriguez ?ID#: ?[id number] ? : ?1950 ? Procedure Date: ? July 01, 2024 ? Case #: ? [id number] ? Room: ? 5 ? Case Physician: ? Emad Catracho, M.D. ? Start: ?15:10 ?Fellow: ? Max [...] procedure was Urgent. The indication for ?the fish farm laborer visit is ACS less than [...] ? A premounted 2.75 x 22 mm [place] (EILEEN) was deployed ? with a maximum [...] dose administered prior to arrival in the fish farm laborer. ?Recommended anti-platelet/anti-thrombotic regimen: ?Continue aspirin 81 mg daily. ?Continue clopidogrel 75 mg daily. ?These recommendations are made at the time of the intervention. Patient ?and provider preferences or a changing clinical situation may require ?modification of this regimen. Consult [facility] Interventional Cardiology for [...] against any medical treatment. Consult ?http://tools.acc.org/DAPTriskapp/#!/content/calculator/ or [facility] ?Interventional Cardiology for [...] Procedure Note Lizzette Hayden MD - 07/14/2024 [facility] Cardiac Catheterization/Intervention Report Patient Name: Brian Rodriguez Procedure Date: 07/01/2024 A #: [id number] Primary Physician: Lizzette Hayden Case #: [id number] File Name: [id number] Catheterization Order Number: [id number] [facility] FinalReport [place], [place] Patient Name: Brian Rodriguez ID#:[id number] :1950 Procedure Date: July 01, 2024 Case [...] designated as ASA Class III. [facility] clinical frailty scale is 4: Vulnerable. Diagnostic Tests: Medications Prior to Procedure: Aspirin, Angiotensin II Receptor Leo and Statin. Indications for Diagnostic Cath: The priority of the diagnostic procedure was Urgent. The indicationfor the fish farm laborer visit is ACS less than [...] time was 37.0 minutes, dose area product lly740.00 Gy/cm2 and air kerma was 1,874 mGY. [...] The lesion was predilated with a 2.50mm [id number] MM balloon with a maximum inflation pressure of 14atmospheres. A premounted 2.75 x 22 mm [place] (EILEEN) wasdeployed with a maximum inflation pressure [...] dose administered prior to arrival in the fish farm laborer. Recommended anti-platelet/anti-thrombotic regimen: Continue aspirin 81 mg daily. Continue clopidogrel 75 mg daily. These recommendations are made at the time of the intervention.Patient and provider preferences or a changing clinical situation mayrequire modification of this regimen. Consult [facility] Interventional Cardiologyfor questions. [...] or against any medical treatment.Consult http://tools.acc.org/DAPTriskapp/#!/content/calculator/ or [facility] Interventional Cardiology for [...] * POC, GLUCOSE (07/01/2024 11:35 AM EDT) Pathologist [facility] Glucometer, POC 126 65 - 199 mg/dL 07/01/2024 11:35 AM EDT [facility] Comment:Supplemental ranges: <140 mg/dL before meals <180 mg/dL all other times of the day. Blood CAPILLARY BLOOD / Unknown 07/01/2024 11:35 AM EDT 07/01/2024 11:35 AM EDT Armond Denny MD POINT OF CARE TEST O RDERABLES [facility] [place] [address] * (ABNORMAL) Hemogram (07/01/2024 10:32 AM EDT) White Blood Cell 7.02 4.00 - 9.50 x10(3)/mc L 07/01/2024 11:20 AM [facility] Red Blood Cell 3.68(L) 4.58 - 5.54 x10(6)/mc L 07/01/2024 11:20 AM [facility] Hemoglobin 12.2(L) 13.7 - 16.5 g/dL 07/01/2024 11:20 AM [facility] Hematocrit 36.5(L) 40.5 - 48.5 % 07/01/2024 11:20 AM [facility] Mean Cell Volume 99.2(H) 82.9 - 93.1 fL 07/01/2024 11:20 AM [facility] Mean Cell Hemoglobin 33.2(H) 27.5 - 32.1 pg 07/01/2024 11:20 AM [facility] Mean Cell Hemoglobin Concentration 33.4 32.0 - 35.7 g/dL 07/01/2024 11:20 AM [facility] Platelet 167 145 - 357 x10(3)/mc L 07/01/2024 11:20 AM [facility] Mean Platelet Volume 11.4 7.6 - 12.9 fL 07/01/2024 11:20 AM [facility] RDW Standard Deviation 46.5(H) 36.0 - 45.0 fL 07/01/2024 11:20 AM [facility] RDW coefficient of variation 12.9 11.4 - 13.8 % 07/01/2024 11:20 AM [facility] NRBC% auto 0.0 % 07/01/2024 11:20 AM [facility] NRBC Absolute 0.00 0.00 - 0.00 x10(3)/mc L 07/01/2024 11:20 AM [facility] Blood VENOUS BLOOD SPECIMEN / Unknown IP Care Team Draw / Unknown 07/01/2024 10:32 AM EDT 07/01/2024 10:54 AM EDT Armond Denny MD HEMATOLOGY ORDERABLE S Performing Organization Address [facility] Co de Phone Number [facility] [place] [address] * Heparin (unfractionated) Level (07/01/2024 10:32 AM EDT) UF Heparin 0.31 IU/mL 07/01/2024 11:25 AM EDT [facility] Comment: Heparin (anti-Xa) [...] MD HEMATOLOGY ORDERABLE S Performing Organization Address City/[facility]/ZIP Co de Phone Number [facility] [place] [address] * POC, GLUCOSE (07/01/2024 7:18 AM EDT) Glucometer, POC 105 65 - 199 mg/dL 07/01/2024 7:19 AM EDT [facility] Comment:Supplemental ranges: <140 mg/dL before meals <180 mg/dL all other times of the day. Blood CAPILLARY BLOOD / Unknown 07/01/2024 7:18 AM EDT 07/01/2024 7:19 AM EDT Triston Godinez MD POINT OF CARE TEST O RDERABLES Performing Organization Address [facility] Co de Phone Number [facility] [place] [address] * Heparin (unfractionated) Level (07/01/2024 3:15 AM EDT) UF Heparin 0.36 IU/mL 07/01/2024 4:23 AM EDT [facility] Comment: Heparin (anti-Xa) [...] MD HEMATOLOGY ORDERABLE S Performing Organization Address City/[facility]/ZIP Co de Phone Number [facility] [place] [address] * (ABNORMAL) CBC (with Diff) (07/01/2024 3:15 AM EDT) White Blood Cell 5.82 4.00 - 9.50 x10(3)/mc L 07/01/2024 3:54 AM [facility] Red Blood Cell 3.60(L) 4.58 - 5.54 x10(6)/mc L 07/01/2024 3:54 AM [facility] Hemoglobin 11.9(L) 13.7 - 16.5 g/dL 07/01/2024 3:54 AM [facility] Hematocrit 35.6(L) 40.5 - 48.5 % 07/01/2024 3:54 AM [facility] Mean Cell Volume 98.9(H) 82.9 - 93.1 fL 07/01/2024 3:54 AM [facility] Mean Cell Hemoglobin 33.1(H) 27.5 - 32.1 pg 07/01/2024 3:54 AM [facility] Mean Cell Hemoglobin Concentration 33.4 32.0 - 35.7 g/dL 07/01/2024 3:54 AM [facility] Platelet 169 145 - 357 x10(3)/mc L 07/01/2024 3:54 AM [facility] Mean Platelet Volume 11.6 7.6 - 12.9 fL 07/01/2024 3:54 AM [facility] RDW Standard Deviation 46.3(H) 36.0 - 45.0 fL 07/01/2024 3:54 AM [facility] RDW coefficient of variation 12.8 11.4 - 13.8 % 07/01/2024 3:54 AM [facility] NRBC% auto 0.0 % 07/01/2024 3:54 AM [facility] NRBC Absolute 0.00 0.00 - 0.00 x10(3)/mc L 07/01/2024 3:54 AM [facility] Neutrophil % 66.6 % 07/01/2024 3:54 AM [facility] Neutrophil Absolute (ANC) - Automated 3.87 1.70 - 6.10 x10(3)/mc L 07/01/2024 3:54 AM EDT [facility] Lymph % 20.4 % 07/01/2024 3:54 AM EDT [facility] Lymph Absolute 1.19 0.90 - 3.20 x10(3)/mc L 07/01/2024 3:54 AM EDT [facility] Monocyte % 9.6 % 07/01/2024 3:54 AM EDT [facility] Monocyte Absolute 0.56 0.30 - 0.90 x10(3)/mc L 07/01/2024 3:54 AM EDT [facility] Eos % 2.6 % 07/01/2024 3:54 AM EDT [facility] Eos Absolute 0.15 0.00 - 0.40 x10(3)/mc L 07/01/2024 3:54 AM EDT [facility] Basophil % 0.5 % 07/01/2024 3:54 AM EDT [facility] Baso Absolute 0.03 0.00 - 0.10 x10(3)/mc L 07/01/2024 3:54 AM EDT [facility] Immature Gran % 0.3 % 3:54 AM EDT [facility] Immature Gran Absolute 0.02 0.00 - 0.04 x10(3)/mc L 07/01/2024 3:54 AM EDT [facility] Blood VENOUS BLOOD SPECIMEN / Unknown IP Care Team Draw / Unknown 07/01/2024 3:15 AM EDT 07/01/2024 3:37 AM EDT Triston Godinez MD HEMATOLOGY ORDERABLE S [facility] [place] [address] * Magnesium (06/30/2024 11:25 PM EDT) Magnesium 0.84 0.69 - 1.07 mMol/L 07/01/2024 12:14 AM [facility] Blood VENOUS BLOOD SPECIMEN / Unknown IP Care Team Draw / Unknown 06/30/2024 11:25 PM EDT 06/30/2024 11:47 PM EDT Triston Godinez MD CHEMISTRY ORDERABLES [facility] [place] [address] * (ABNORMAL) Basic Metabolic Panel (06/30/2024 11:25 PM EDT) Glucose 145 65 - 199 mg/dL 07/01/2024 12:14 AM [facility] Comment:Glucose Concentratio n >=200 mg/dL plus symptoms is consistent with Diabetes Mellitus. Blood Urea Nitrogen 10 10 - 20 mg/dL 07/01/2024 12:14 AM [facility] Creatinine 1.02 0.80 - 1.50 mg/dL 07/01/2024 12:14 AM [facility] Sodium 141 135 - 145 mMol/L 07/01/2024 12:14 AM [facility] Potassium 3.4(L) 3.5 - 5.0 mMol/L 07/01/2024 12:14 AM [facility] Chloride 106 98 - 107 mMol/L 07/01/2024 12:14 AM [facility] Carbon Dioxide 25 22 - 31 mMol/L 07/01/2024 12:14 AM [facility] Anion Gap 10 5 - 15 mMol/L 07/01/2024 12:14 AM [facility] Calcium 9.2 8.5 - 10.5 mg/dL 07/01/2024 12:14 AM [facility] Est Glomerular Filtration Rate - Male 76 mL/min/1. 73 m?? 07/01/2024 12:14 AM [facility] Comment: This patient's estimated [...] Foundation Fasting Status 07/01/2024 12:14 AM EDT [facility] Blood VENOUS BLOOD SPECIMEN / Unknown IP Care Team Draw / Unknown 06/30/2024 11:25 PM EDT 06/30/2024 11:47 PM EDT Triston Godinez MD CHEMISTRY ORDERABLES Performing Organization Address City/State/[facility] Co de Phone Number [facility] [place] [address] * (ABNORMAL) Troponin-T, Yuriy Sensitivity 3 Hour (06/30/2024 11:25 PM EDT) [facility] Troponin-T, High Sensitivity 1,274(H) <=22 ng/L 07/01/2024 12:14 AM EDT [facility] Comment: This [...] troponin value can be found in the [facility] Test Catalog Troponin - https://one-.testcatalog.org/catalogs/565/files/50264 Reference: Fourth [place] Definition of Myocardial Infarction. Journal of the [place] [employer] 2018;72:9375-4163 Troponin-T, HS 3 hr delta 65 ng/L 07/01/2024 12:14 AM EDT [facility] Comment:The 3 hour [...] Godinez MD CHEMISTRY ORDERABLES Performing Organization Address City/State/[facility] Co de Phone Number [facility] [place] [address] * (ABNORMAL) Troponin-T, High Sensitivity 1 Hour (06/30/2024 8:22 PM EDT) Pathologist [facility] Troponin-T, High Sensitivity 1,234(H) <=22 ng/L 06/30/2024 9:22 PM EDT [facility] Comment: This [...] troponin value can be found in the [facility] Test Catalog Troponin - https://[facility].testcatalog.org/catalogs/565/files/36610 Reference: Fourth [place] Definition of Myocardial Infarction. Journal of the [place] [employer] 2018;72:7741-9120 Troponin-T, HS 1 hr delta 06/30/2024 9:22 PM EDT [facility] Comment:Delta troponin value not calculated, sample collected outside of delta calculation time limit. Blood VENOUS BLOOD SPECIMEN / Unknown Venipuncture / Unknown 06/30/2024 8:22 PM EDT 06/30/2024 8:40 PM EDT Triston Godinez MD CHEMISTRY ORDERABLES Performing Organization Address [facility]/ZIP Co de Phone Number [facility] [place] [address] * POC, GLUCOSE (06/30/2024 7:56 PM EDT) Glucometer, POC 144 65 - 199 mg/dL 06/30/2024 7:57 PM EDT [facility] Comment:Supplemental ranges: <140 mg/dL before meals <180 mg/dL all other times of the day. Blood CAPILLARY BLOOD / Unknown 06/30/2024 7:56 PM EDT 06/30/2024 7:57 PM EDT Triston Godinez MD POINT OF CARE TEST O RDERABLES Performing Organization Address City/[facility]/ZIP Co de Phone Number [facility] [place] [address] * XR Abdomen Flat & Upright (06/30/2024 6:56 PM EDT) WORKSTATION ID [id number] DH RAD Anatomical Region Laterality Modality Abdomen N/A Digital Radiogra phy Impressions 06/30/2024 9:12 PM EDT No obstruction or perforation. Thank you for letting us participate in the care of this patient. ??If you are a health care provider and have any questions regarding this report, please contact the number below. ??For patients who have questions please contact the health critical care unit nurse that requested your imaging first. ? Electronically signed by: Shireen Hurtado MD, [facility] ([phone]), at 06/30/2024 9:12 PM Narrative 06/30/2024 9:12 [...] have questions please contactthe health critical care unit nurse that requested your imaging first. Electronically signed by: Shireen Hurtado MD, [facility]([phone]), at 06/30/2024 9:12 PM Triston Godinez MD IMG DX ORDERABLES * (ABNORMAL) Troponin-T, High Sensitivity (06/30/2024 6:09 PM EDT) Troponin-T, High Sensitivity Initial 1,209(HHH ) <=22 ng/L 06/30/2024 7:23 PM EDT [facility] Comment: This [...] troponin value can be found in the [facility] Test Catalog Troponin - https://[facility]-.testcatalog.org/catalogs/565/files/95396 Reference: Fourth [place] Definition of Myocardial Infarction. Journal of the [place] College [employer]iology 2018;72:7192-8598 Blood VENOUS BLOOD SPECIMEN / Unknown Venipuncture / Unknown 06/30/2024 6:09 PM EDT 06/30/2024 6:18 PM EDT Triston Godinez MD CHEMISTRY ORDERABLES [facility] [place] [address] * (ABNORMAL) Basic Metabolic Panel (06/30/2024 6:09 PM EDT) Glucose 06/30/2024 8:08 PM [facility] Comment:Insufficient sample. Informed Alli Meyers at 20:07, 06.30.2024. Blood Urea Nitrogen 10 10 - 20 mg/dL 06/30/2024 8:08 PM [facility] Creatinine 0.98 0.80 - 1.50 mg/dL 06/30/2024 8:08 PM [facility] Sodium 140 135 - 145 mMol/L 06/30/2024 8:08 PM [facility] Potassium 4.2 3.5 - 5.0 mMol/L 06/30/2024 8:08 PM [facility] Chloride 105 98 - 107 mMol/L 06/30/2024 8:08 PM [facility] Carbon Dioxide 21(L) 22 - 31 mMol/L 06/30/2024 8:08 PM [facility] Anion Gap 14 5 - 15 mMol/L 06/30/2024 8:08 PM [facility] Calcium 06/30/2024 8:08 PM [facility] Comment:Insufficient sample. Informed Alli Meyers at 20:07, 06.30.2024. Est Glomerular Filtration Rate - Male 80 mL/min/1. 73 m?? 06/30/2024 8:08 PM [facility] Comment: This patient's estimated [...] Foundation Fasting Status Yes 06/30/2024 8:08 PM [facility] Blood VENOUS BLOOD SPECIMEN / Unknown Venipuncture / Unknown 06/30/2024 6:09 PM EDT 06/30/2024 6:18 PM EDT Triston Godinez MD CHEMISTRY ORDERABLES [facility] [place] [address] * Lipid Panel (Reflex Direct LDL) (06/30/2024 6:09 PM EDT) [facility] Signature Cholesterol, Total 197 mg/dL 06/30/2024 6:51 PM EDT [facility] Comment: Desirable: < 200 mg/dL Borderline High: 200 - 239 mg/dL High: > or = 240 mg/dL Triglyceride 230 mg/dL 06/30/2024 6:51 PM EDT [facility] Comment: Normal: <150 mg/dL Borderline High: 150-199 mg/dL High: 200-499 mg/dL Very High: > or =500 mg/dL HDL Cholesterol 36 mg/dL 6:51 PM EDT [facility] Comment:Males: High Risk: <4 0 mg/dL LDL Cholesterol 120 mg/dL 6:51 PM EDT [facility] Comment: Desirable: <100 mg/dL Above Desirable: 100-129 mg/dL Borderline High: 130-159 mg/dL High: 160-189 mg/dL Very High: > or =190 mg/dL Note: LDL calculation updated to the NIH LDL formula as of 06/26/2024 Non-HDL Cholesterol 161 mg/dL 06/30/2024 6:51 PM EDT [facility] Comment: Desirable: <130 mg/dL Above Desirable: 130-159 mg/dL Borderline High: 160-189 mg/dL High: 190-219 mg/dL Very High: > or = 220 mg/dL Blood VENOUS BLOOD SPECIMEN / Unknown Venipuncture / Unknown 06/30/2024 6:09 PM EDT 06/30/2024 6:18 PM EDT [facility] - 06/30/2024 6:51 PM EDT It [...] ACC/AHA Guidelines (most recently Brianne et al. [facility] 08/26/22): * For individuals with atherosclerotic [...] Godinez MD CHEMISTRY ORDERABLES Performing Organization Address [facility] Co de Phone Number [facility] [place] [address] * (ABNORMAL) pro-Brain Natriuretic Peptide (06/30/2024 6:09 PM EDT) NT-proBNP 2,259(H) <=449 pg/mL 06/30/2024 6:51 PM EDT [facility] Blood VENOUS BLOOD SPECIMEN / Unknown Venipuncture / Unknown 06/30/2024 6:09 PM EDT 06/30/2024 6:18 PM EDT Triston Godinez MD CHEMISTRY ORDERABLES Performing Organization Address [facility] Co de Phone Number [facility] [place] [address] * TSH (06/30/2024 6:09 PM EDT) Thyroid Stimulating Hormone 2.80 0.27 - 4.20 mcIU/mL 06/30/2024 6:51 PM EDT [facility] Blood VENOUS BLOOD SPECIMEN / Unknown Venipuncture / Unknown 06/30/2024 6:09 PM EDT 06/30/2024 6:18 PM EDT Triston Godinez MD CHEMISTRY ORDERABLES Performing Organization Address [facility] Co de Phone Number [facility] [place] [address] * Heparin (unfractionated) Level (06/30/2024 6:08 PM EDT) UF Heparin 0.07 IU/mL 06/30/2024 6:34 PM EDT [facility] Comment: Heparin (anti-Xa) [...] MD HEMATOLOGY ORDERABLE S Performing Organization Address City/State/[facility] Co de Phone Number [facility] [place] [address] * (ABNORMAL) CBC (with Diff) (06/30/2024 6:08 PM EDT) White Blood Cell 6.45 4.00 - 9.50 x10(3)/mc L 06/30/2024 6:36 PM EDT [facility] Red Blood Cell 3.78(L) 4.58 - 5.54 x10(6)/mc L 06/30/2024 6:36 PM EDT [facility] Hemoglobin 12.7(L) 13.7 - 16.5 g/dL 06/30/2024 6:36 PM EDT [facility] Hematocrit 38.0(L) 40.5 - 48.5 % 06/30/2024 6:36 PM EDT [facility] Mean Cell Volume 100.5(H) 82.9 - 93.1 fL 06/30/2024 6:36 PM EDT [facility] Mean Cell Hemoglobin 33.6(H) 27.5 - 32.1 pg 06/30/2024 6:36 PM [facility] Mean Cell Hemoglobin Concentration 33.4 32.0 - 35.7 g/dL 06/30/2024 6:36 PM [facility] Platelet 79(L) 145 - 357 x10(3)/mc L 06/30/2024 6:36 PM [facility] Mean Platelet Volume 11.2 7.6 - 12.9 fL 06/30/2024 6:36 PM [facility] RDW Standard Deviation 48.4(H) 36.0 - 45.0 fL 06/30/2024 6:36 PM [facility] RDW coefficient of variation 13.0 11.4 - 13.8 % 06/30/2024 6:36 PM [facility] NRBC% auto 0.0 % 06/30/2024 6:36 PM [facility] NRBC Absolute 0.00 0.00 - 0.00 x10(3)/mc L 06/30/2024 6:36 PM [facility] Neutrophil % 71.2 % 06/30/2024 6:36 PM [facility] Neutrophil Absolute (ANC) - Automated 4.59 1.70 - 6.10 x10(3)/mc L 06/30/2024 6:36 PM [facility] Lymph % 18.1 % 06/30/2024 6:36 PM [facility] Lymph Absolute 1.17 0.90 - 3.20 x10(3)/mc L 06/30/2024 6:36 PM [facility] Monocyte % 8.2 % 06/30/2024 6:36 PM [facility] Monocyte Absolute 0.53 0.30 - 0.90 x10(3)/mc L 06/30/2024 6:36 PM [facility] Eos % 1.7 % 06/30/2024 6:36 PM [facility] Eos Absolute 0.11 0.00 - 0.40 x10(3)/mc L 06/30/2024 6:36 PM EDT [facility] Basophil % 0.6 % 06/30/2024 6:36 PM EDT [facility] Baso Absolute 0.04 0.00 - 0.10 x10(3)/mc L 06/30/2024 6:36 PM EDT [facility] Immature Gran % 0.2 % 6:36 PM EDT [facility] Immature Gran Absolute 0.01 0.00 - 0.04 x10(3)/mc L 06/30/2024 6:36 PM EDT [facility] Blood VENOUS BLOOD SPECIMEN / Unknown Venipuncture / Unknown 06/30/2024 6:08 PM EDT 06/30/2024 6:18 PM EDT Triston Godinez MD HEMATOLOGY ORDERABLE S [facility] [place] [address] * (ABNORMAL) Hemoglobin A1c (06/30/2024 6:08 PM EDT) Hemoglobin A1c 7.3(H) 4.3 - 5.6 % 06/30/2024 9:03 PM EDT [facility] Comment: Per ADA [...] red blood cell turnover may not be associate financial representative of glycemic control. Reference Interval: 4.3 - 5.6% 5.7 - 6.4%: Consistent with prediabetes >=6.5%: Consistent with diagnosis of diabetes mellitus Estimated Average Glucose 06/30/2024 9:03 PM EDT [facility] Comment:Not Calculated. Blood VENOUS BLOOD SPECIMEN / Unknown Venipuncture / Unknown 06/30/2024 6:08 PM EDT 06/30/2024 6:18 PM EDT Narrative [facility] - 06/30/2024 9:03 PM EDT Estimated average glucose (eAG) is calculated from the equation described in: John ELLISON, Inna J, Nic R, et al. ??Translating the A1C assay into estimated average glucose values. ??Diabetes Care 2008:31(8):8235-5501. Additional resources are available on the ADA website (diabetes.org). Triston Godinez MD CHEMISTRY ORDERABLES Performing Organization Address [facility] Co de Phone Number [facility] [place] [address] * POC, GLUCOSE (06/30/2024 5:58 PM EDT) Pathologist [facility] Glucometer, POC 148 65 - 199 mg/dL 06/30/2024 5:58 PM EDT [facility] Comment:Supplemental ranges: <140 mg/dL before meals <180 mg/dL all other times of the day. Blood CAPILLARY BLOOD / Unknown 06/30/2024 5:58 PM EDT 06/30/2024 5:58 PM EDT Triston Godinez MD POINT OF CARE TEST O RDERABLES Performing Organization Address [facility]/ZIP Co de Phone Number [facility] [place] [address] * EKG 12 Lead (06/30/2024 5:23 PM EDT) Ventricular rate 73 BPM MUSE SYSTEM Atrial Rate 300 BPM MUSE SYSTEM QRS Duration 72 ms MUSE SYSTEM Q-T Interval 404 ms MUSE SYSTEM QTC Calculated (Bezet) 445 ms MUSE SYSTEM Calculated P [place] 71 degrees MUSE SYSTEM Calculated R [place]ox[place] 65 degrees MUSE SYSTEM Calculated T [place] 30 degrees MUSE SYSTEM INTERPRETATION Normal sinus [...] 9:26 PM EDT ? Version: 1 Name: JOAQUIN RODRGIUEZOMKAR Joya ?Study Date: 06/30/2024, 4: 39 PM ?BP: 137 / 78 mmHg ?Patient Location: L3WB^374^A : 1950 (MM/DD/YYYY) ? Height: 193 cm ? Age: 74 Years ? Weight: 113 kg Gender: Male ?BSA: 2.43 m?? Ordering Physician: TRISTON GODINEZ Referring Physician: KENJI THOMAS Performed By: Carol Villarreal Reason For Study: NSTEMI (non-ST elevation myocardial infarction) Exam Location: [facility]. ? Conclusions -Left ventricular systolic function is moderately reduced. The left ventricular ejection fraction is 36% by Dowd's biplane. The anterolateral and inferolateral barahona are akinetic. The anterior wall is hypokinetic. -Right ventricle is mildly dilated. Systolic function is normal. -No significant valve disease. -See report for additional findings. No prior study is available. Procedure Complete-[id number]. Image enhancement Optison was used for left [...] NSTEMI (non-ST elevation myocardial infarction) Exam Location: [facility]. Conclusions -Left ventricular systolic function is moderately reduced. The leftventricular ejection fraction is 36% by Dowd's biplane. The anterolateral andinferolateral barahona are akinetic. The anterior wall is hypokinetic. -Right ventricle is mildly dilated. Systolic function is normal. -No significant valve disease. -See report for additional findings. No prior study is available. Procedure [id number]. Image enhancement Optison was used for left [...] (Bezet) 460 ms MUSE SYSTEM Calculated P [place] 69 degrees MUSE SYSTEM Calculated R [place] 78 degrees MUSE SYSTEM Calculated T [place] 39 degrees MUSE SYSTEM INTERPRETATION Sinus rhythm [...] Indication for (Active or Suspected): Urinary Tract/Pyelonephritis 1728 (New Bag - Provider: Jenny Reddy RN)175 (Stopped - Provider: Jenny Reddy RN) ciprofloxacin [...] on Thu07/01/24 at 0900, Until Discontinued, Routine 807 (Given - Provider: Sujata Duncan RN) 08 [...] Sujata Duncan, RONY)1619 (Given - Provider: Sujata Duncan RN) 0730 (Not Given - Provider: Jenny Reddy RN - Reason: Order parameters not met)1123 (Given - Provider: Jenny Reddy, RN)1706 (Given - Provider: Jenny Reddy, RN) [...] 0824 (Given - Provider: Jenny Reddy, RONY) 0835 (Given - Provider: Jenny Reddy, RONY) [...] - Provider: Iram De Jesus [facility]) tamsulosin (Flomax) capsule 0.8 mg [...] Start Date End Date Deacon Watters, JAZMINE [facility] [address] [place] [address] PCP - General Family Medicine 02/17/22 documented as of this encounter
--- OUTSIDE RECORDS SUMMARY | 2024-07-27 21:05 | XMS_ITS | Encounter Summary ---
Author Organization [facility] Address [facility] [place] [address] Care Team Providers Care Floor Covering Printer Name Role Phone Deacon Watters APRN Primary Care Provider +1- [phone] Encounter Details Date Type Department Care Team (Late st Contact Info) Description 06/29/2024 [place] [phone] Ramakrishna Elliott MD [facility] [place] [address] Social History Tobacco Use Types Packs/Day Years [...] Date: 06/29/24 Referring Provider: William Patient Location: [facility] HPI: 74 yoM w/ PMHx [...] tolerated - TTE - plan for [facility] Recommendations: Above recommendations were based on my discussion with Dr. briscoe; I have not personally interviewed or examined this patient. Advised to call the transfer center back with any changes in the patient condition. Ramakrishna Elliott MD Cuff Slitter documented in this encounter Plan of Treatment Upcoming Encounters Date Type Department Care Team (Late st Contact Info) Description 07/29/2024 Hospital Encounter Heart and Vascular Unit Level 4 [place] [phone] Faheem Joy MD [facility] [place] [address] 08/15/2024 9:00 AM EDT Office [place] [address] Dion Barlow MD [facility] [place] [address] 09/01/2024 9:40 AM EDT Office Visit Cardiology at [address] [phone] Franky Shaver MD [facility] [place] [address] 09/01/2024 11:20 AM EDT Office Visit Dermatology at [facility] [address] [place] [phone] Gómez Mercer MD [facility] DR EDDIE SANCHE[place] [address] 09/21/2024 2:45 PM EDT Office Visit Pain and Spine Center at [facility] [place] [phone] Trung Hoyos MD [facility] [place] [address] documented as of this encounter Visit Diagnoses Not on filedocumented in this encounter Care Teams Floor Covering Printer Relationship Specialty Start Date End Date Deacon Watters, JAZMINE [address] [place] [address] PCP - General Family Medicine 02/17/22 documented as of this encounter
--- OUTSIDE RECORDS SUMMARY | 2024-07-27 21:05 | XMS_ITS | Encounter Summary ---
Author Organization [facility] Address [facility] [place] [address] Care Team Providers Care Rn Gynecology Name Role Phone Deacon Watters APRN Primary Care Provider +1- [phone] Reason for Visit * Reason Comments Medication Refill Encounter Details Date Type Department Care Team (Late st Contact Info) Description 07/01/2024 Refill [place] [address] Dion Barlow MD [facility] [place] [address] Social History Tobacco Use Types Packs/Day Years Used Date Smoking Tobacco: Former Cigarettes 4 30 1 12/01/1961 - 10/01/1992 Smokeless Tobacco: Former Chew Comments:Denies vaping Alcohol Use Standard Drinks/Week Comments Yes 0 (1 standard drink = 0.6 oz pur e alcohol) twice a year [facility] Utilities Answer Date Recorded In the past 12 months has e [employer], gas, oil, or water [employer] threatened to shut off services in your [...] any time in the past 12 [facility], were you homeless or [...] Vascular Unit Level 4 [place] [phone] Faheem Joy MD [facility] [place] [address] 08/15/2024 9:00 AM EDT Office Visit [place] [address] Dion Barlow MD [facility] [place] [address] 09/01/2024 9:40 AM EDT Office Visit Cardiology at [address] [phone] Franky Shaver MD [facility] [place] [address] 09/01/2024 11:20 AM EDT Office Visit Dermatology at [facility] [address] [place] [address] Gómez Mercer MD [facility] DR [place] [address] 09/21/2024 2:45 PM EDT Office Visit Pain and Spine Center at [facility] [place] [address] Trung Hoyos MD [facility] [place] [address] documented as of this encounter Visit Diagnoses Not on filedocumented in this encounter Care Teams Rn Gynecology Relationship Specialty Start Date End Date Deacon Watters, LINEN CONTROLLER [address] [place] [address] PCP - General Family Medicine 02/17/22 documented as of this encounter
--- OUTSIDE RECORDS SUMMARY | 2024-07-27 21:05 | XMS_ITS | Encounter Summary ---
Author Organization [facility] [place] [address] Care Team Providers Care Cooker Sulfate Name Role Phone Deacon Watters APRN Primary Care Provider [phone] Reason for Visit * Auth/Cert (Routine) Specialty Diagnoses / Procedures Referred By Contac t Referred To Contact Diagnoses NSTEMI (non-ST elevated myocardial infarction) NSTEMI Triston Godinez MD [facility] [place] [address] [facility] Referral ID Status Reason Start Date Expiration Date Visits Re quested Visits Authorized [id number] 1 1 Encounter Details Date Type Department Care Team (Late st Contact Info) Description 07/01/2024 2:30 PM EDT - 07/01/2024 3:30 PM EDT Surgery [place] [address] Lizzette Hayden MD [facility] [place] [address] CARDIAC CATHETERIZATION Social History Tobacco Use Types Packs/Day Years Used Date Smoking Tobacco: Former Cigarettes 4 30 1 12/01/1961 - 10/01/1992 Smokeless Tobacco: Former Chew Comments:Denies vaping Alcohol Use Standard Drinks/Week Comments Yes 0 (1 standard drink = 0.6 oz pur e alcohol) twice a year [facility] Utilities Answer Date Recorded In the past 12 months has th e electric, gas, oil, or water [employer] threatened to shut off services in your [...] any time in the past 12 m [facility], were you homeless or living in a halfway (including now)? No 07/01/2024 DH IPV Inpatient [...] for chest pain and was transferred to [facility] for NSTEMI found to have [...] He was discharged with 6 days of [id number] mg BID after receiving 1 day of [...] Jardiance allergy. PCP Contact Information: Deacon Watters, AVIONICS SYSTEMS REPAIRER [address] [facility] 1 / [facility] [address] Discharge Diagnoses (Hospital Problems) and Secondary Diagnoses [...] #HTN #HLD Mr. Rodriguez was transferred to [facility] for NSTEMI with trops of 4143 and 20,000 at the OSH, where he was loaded with ASA, plavix and started on heparin gtt. At [facility], his trops trended down to [...] dose. Would consider changes to his regimen manager intermediate to reduce the A1c. #GERD He takes [...] to exclude urinary tract infection. Cardiac Catheterization: ([facility]) RIGHT dominance LVEDP 10 Artery Lesion Intervention [...] 9:00 AM Dion Osullivan MD Gastroenterology at [facility] Arrive at: Applications Programmer Analyst Area [phone] 09/01/2024 11:20 AM Gómez Mercer MD Dermatology at [facility] Arrive at: Applications Programmer Analyst [address] [place] [address] 09/21/2024 2:45 PM Trung Hoyos MD Pain and Spine Center at [facility] Arrive at: Applications Programmer Analyst Area [phone] Future Orders Complete By Expires Referral to Cardiac Rehab [[id number] Custom] As directed Process Instructions: If no progress note charted, please enter Clinical details in comments. Scheduling Instructions: Questions: My question or request is: NSTEMI, PCI, HFrEF- cardiac rehab at [facility] Referral to Cardiology [REF12 Custom] As directed Process Instructions: If no progress note charted, please enter Clinical details in comments. Scheduling Instructions: Questions: My question or request is: NEW PATIENT - hospital follow up for NSTEMI s/p PCI to LCx and new HFrEF, does not have appt on [employer] please call him with appt slot General [...] appointments: During 8am-5pm Thursday through Thursday call [phone] to speak with a nurse in the cardiology clinic All other times call [phone] and ask to speak to the jig and fixture builder apprentice marketing sales consultant. Home oxygen therapy: none Arrangements for VNA/home care: none Follow up Appointments: Future Appointments Date Time Provider Department Center 08/15/2024 9:00 AM Dion Osullivan MD [facility] GASTRO [facility] 09/01/2024 11:20 AM Gómez Mercer MD [facility] 09/21/2024 2:45 PM Trung Hoyos MD [facility] Pain Sp [facility] Graphics Edit Technician: [facility] - referral sent and they are aware you need an appointment. If they do not reach out to you with an appointment in 1 week, call and ask for the cardiology clinic. PCP: Deacon Watters APRN at [phone] on July 08 at 4 PM Your Inpatient Doctor(s) at [facility]: Armond Denny MD - Attending physician Your Primary Care Provider: Deacon Watters APRN [address] / [facility] [address] If you have non-emergent questions between now and the time of your follow up appointments: During 8am-5pm Thursday through Thursday call [phone] to speak with a nurse in the cardiology clinic All other times call [phone] and ask to speak to the jig and fixture builder apprentice marketing sales consultant. Provider Contact Information: Deacon Watters APRN [address] [facility] 1 / [facility] [address] Discharge References/Attachments: Discharge References/Attachments None For questions regarding this document or issues relating to this hospitalization on the Medical Service, please contact your inpatient physician through the [facility] Skoog Operator . Issues afterhours and on weekends will be handled by the Graphics Edit Technician staff on-call. Signed: Ronel Hensley MD Internal [...] appointments: During 8am-5pm Thursday through Thursday call [phone] to speak with a nurse in the cardiology clinic All other times call [phone] and ask to speak to the jig and fixture builder apprentice marketing sales consultant. Home oxygen therapy: none Arrangements for VNA/home care: none Follow up Appointments: Future Appointments Date Time Provider Department Center 08/15/2024 9:00 AM Dion Osullivan MD [facility] GASTRO [facility] 09/01/2024 11:20 AM Gómez Mercer MD [facility] 09/21/2024 2:45 PM Trung Hoyos MD [facility] Pain Sp [facility] Graphics Edit Technician: [facility] - referral sent and they are aware you need an appointment. If they do not reach out to you with an appointment in 1 week, call and ask for the cardiology clinic. PCP: Deacon Watters APRN at [phone] on July 08 at 4 PM Your Inpatient Doctor(s) at [facility]: Armond Denny MD - Attending physician Your Primary Care Provider: Deacon Watters APRN [address] [place] [address] If you have non-emergent questions between now and the time of your follow up appointments: During 8am-5pm Thursday through Thursday call [phone] to speak with a nurse in the cardiology clinic All other times call [phone] and ask to speak to the jig and fixture builder apprentice marketing sales consultant. documented in this encounter Medications at [...] migraines, DM2, and UC whowas transferred to [facility] for NSTEMI and now found [...] MD at [facility] ENDOSCOPY PRO COLONOSCOPY, BIOPSY N/A 02/22/2019 COLONOSCOPY FLEXIBLE, WITH BX (WRVU 3.66) performed by Dion Osullivan MD at [facility] ENDOSCOPY PRO COLONOSCOPY, BIOPSY N/A 03/28/2022 COLONOSCOPY FLEXIBLE, WITH BX (WRVU 3.66) performed by Mona Turner MD at [facility] ENDOSCOPY PRO COLONOSCOPY, BIOPSY N/A 01/20/2024 COLONOSCOPY FLEXIBLE, WITH BX (WRVU 3.56) performed by Anthony Hamlin MD at [facility] ENDOSCOPY PRO COLONOSCOPY, DIAGNOSTIC 11/27/2011 COLONOSCOPY, DIAGNOSTIC performed by Dion OSULLIVAN at [facility] ENDOSCOPY PRO COLONOSCOPY, DIAGNOSTIC 07/13/2014 COLONOSCOPY, DIAGNOSTIC performed by Dion Osullivan MD at [facility] ENDOSCOPY PRO COLONOSCOPY, REMV LESN, SNARE N/A 02/22/2019 COLONOSCOPY, POLYPECTOMY, REMOVAL LESION BY SNARE (WRVU 4.67) performed by Dion Osullivan MD at [facility] ENDOSCOPY PRO COLONOSCOPY, REMV LESN, SNARE N/A 02/26/2021 COLONOSCOPY, POLYPECTOMY, REMOVAL LESION BY SNARE (WRVU 4.67) performed by Dion Osullivan MD at [facility] ENDOSCOPY PRO SIGMOIDOSCOPY, DIAGNOSTIC 03/16/2012 FLEXIBLE SIGMOIDOSCOPY performed by YUDI MALLOY at [facility] ENDOSCOPY PRO UPPER GI ENDOSCOPY, DIAGNOSTIC N/A 04/28/2019 EGD, UPPER GI ENDOSCOPY performed by Iza Coates MD at [facility] ENDOSCOPY UPPER GI ENDOSCOPY, EXAM 10/01/2012 UPPER GI ENDOSCOPY performed by Dion OSULLIVAN at [facility] ENDOSCOPY Social History: Home set-up: Lives on the first floor of a two level home in [place], [place] Stairs: FOS with bilateral rails vs a few stairs through the back to the first level, 8 step between rooms Bathroom Set-up: Tub-shower with grab bars, no shower chair Baseline Mobility: Ambulates without an assistive device. Independent with I/ADLs, including driving. 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 He enjoys taking care of his property including [employer] wood. He sleeps in a flat bed. 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 male admitted on 06/30/2024 with PMHx of HTN, HLD, migraines, DM2, and UC who was transferred to [facility] for NSTEMI and now found [...] MD at [facility] ENDOSCOPY PRO COLONOSCOPY, BIOPSY N/A 02/22/2019 COLONOSCOPY FLEXIBLE, WITH BX (WRVU 3.66) performed by Dion Osullivan MD at [facility] ENDOSCOPY PRO COLONOSCOPY, BIOPSY N/A 03/28/2022 COLONOSCOPY FLEXIBLE, WITH BX (WRVU 3.66) performed by Mona Turner MD at [facility] ENDOSCOPY PRO COLONOSCOPY, BIOPSY N/A 01/20/2024 COLONOSCOPY FLEXIBLE, WITH BX (WRVU 3.56) performed by Anthony Hamlin MD at [facility] ENDOSCOPY PRO COLONOSCOPY, DIAGNOSTIC 11/27/2011 COLONOSCOPY, DIAGNOSTIC performed by Dion OSULLIVAN at [facility] ENDOSCOPY PRO COLONOSCOPY, DIAGNOSTIC 07/13/2014 COLONOSCOPY, DIAGNOSTIC performed by iDon Osullivan MD at [facility] ENDOSCOPY PRO COLONOSCOPY, REMV LESN, SNARE N/A 02/22/2019 COLONOSCOPY, POLYPECTOMY, REMOVAL LESION BY SNARE (WRVU 4.67) performed by Dion Osullivan MD at [facility] ENDOSCOPY PRO COLONOSCOPY, REMV LESN, SNARE N/A 02/26/2021 COLONOSCOPY, POLYPECTOMY, REMOVAL LESION BY SNARE (WRVU 4.67) performed by Dion Osullivan MD at [facility] ENDOSCOPY PRO SIGMOIDOSCOPY, DIAGNOSTIC 03/16/2012 FLEXIBLE SIGMOIDOSCOPY performed by YUDI MALLOY at [facility] ENDOSCOPY PRO UPPER GI ENDOSCOPY, DIAGNOSTIC N/A 04/28/2019 EGD, UPPER GI ENDOSCOPY performed by Iza Coates MD at [facility] ENDOSCOPY UPPER GI ENDOSCOPY, EXAM 10/01/2012 UPPER GI ENDOSCOPY performed by Dion OSULLIVAN at [facility] ENDOSCOPY Social History: Home set-up: Lives on the first floor of a two level home in [place], [place] Stairs: FOS with bilateral rails vs a few stairs through the back to the first level, 8 step between rooms Bathroom Set-up: Tub-shower with grab bars, no shower chair Baseline Mobility: Ambulates without an assistive device. Independent with I/ADLs, including driving. 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 He enjoys taking care of his property including [employer]. He sleeps in a flat bed. 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 Pager: [phone] Tray Bassett. WILLY LoganR/L Occupational Therapy Rehabilitation Department * Armond Denny MD - 07/03/2024 7:03 AM EDT Inpatient Cardiology Progress Note Patient Name: Brian Rodriguez Date of Admission: 06/30/2024 ( Hospital Day 3 days ) Service: S2 ID: Brian Rodriguez is a 74 y.o. male with PMHx of HTN, HLD, migraines, DM2, and UC [facility] for NSTEMI found to have [...] 1809 PROBNP 2,259* Trops: OSH 4143 >20,000>> [facility] 1234 and 1274 06/30 Telemetry: [...] DM2, and UC who was transferred to [facility] for NSTEMI and now found [...] 7.3. Will need outpatient follow up for manager intermediate changes. - holding home glipizide and metformin [...] Katia Reid MD Internal Medicine PGY-3 Pager [phone], M1-S2 Service CARDIOLOGY STAFF NOTE I have personally interviewed and examined the patient and reviewed appropriate data, including labs, ECGs and other diagnostic studies. I agree with the principal findings documented above. The assessment and plan were formulated in discussion with me. Armond Denny MD, [facility] Staff Graphics Edit Technician vp medical * Armond Denny MD - 07/02/2024 6:17 AM EDT Inpatient Cardiology Progress Note Patient Name: Brian Rodriguez Date of Admission: 06/30/2024 ( Hospital Day 2 days ) Service: S2 ID: Brian Rodriguez is a 74 y.o. male with PMHx of HTN, HLD, migraines, DM2, and UC [facility] and [facility] to [facility] for NSTEMI found to have [...] 1809 PROBNP 2,259* Trops: OSH 4143 >20,000>> [facility] 1234 and 1274 06/30 Telemetry: [...] DM2, and UC who was transferred to [facility] for NSTEMI and now found [...] 7.3. Will need outpatient follow up for manager intermediate changes. - holding home glipizide and metformin [...] Ronel Hensley MD Internal Medicine PGY-1 Pager [phone], M1-S2 Service CARDIOLOGY STAFF NOTE I have personally interviewed and examined the patient and reviewed appropriate data, including labs, ECGs and other diagnostic studies. I agree with the principal findings documented above. The assessment and plan were formulated in discussion with me. Armond Denny MD, [facility] Staff Graphics Edit Technician vp medical * Armond Denny MD - 07/01/2024 6:15 AM EDT Inpatient Cardiology Progress Note Patient Name: Brian Rodriguez Date of Admission: 06/30/2024 ( Hospital Day 1 day ) Service: S2 ID: Brian Rodriguez is a 74 y.o. male with PMHx of HTN, HLD, migraines, DM2, and UC who presented [facility] for chest pain and was transferred to [facility] for NSTEMI found to have HFrEF. Active Problems: Active Hospital Problems Diagnosis NSTEMI (non-ST elevated myocardial infarction) Resolved Hospital Problems No resolved problems to display. 24 hr events: Yesterday - transferred to [facility] for NSTEMI Overnight - no [...] 1809 PROBNP 2,259* Trops: OSH 4143 >20,000>> [facility] 1234 and 1274 last night [...] DM2, and UC who was transferred to [facility] for NSTEMI and now found [...] 7.3. Will need outpatient follow up for assisted changes. - holding home glipizide and metformin [...] Ronel Hensley MD Internal Medicine PGY-1 Pager [phone], M1-S2 Service CARDIOLOGY STAFF NOTE I have personally interviewed and examined the patient and reviewed appropriate data, including labs, ECGs and other diagnostic studies. I agree with the principal findings documented above. The assessment and plan were formulated in discussion with me. Plan for cath today and introduction of full complement of medical therapies for ACS/HFrEF. Armond Denny MD, [facility] Staff Graphics Edit Technician vp medical documented in this encounter H&P Notes * Lynette Díazsera Woodard, AVIONICS SYSTEMS REPAIRER - 07/01/2024 9:33 AM EDT Images from [...] PCP: Deacon Watters APRN PCP phone #: [phone] ID/Chief Complaint: Brian Rodriguez is a 74 y.o. male with PMHx of HTN, HLD, migraines, DM2, and UC who presented to [facility] for chest pain and was transferred to [facility] for NSTEMI. History of Present [...] infarction) Ulcerative colitis Colonoscopy 04/08/10 (Dr. Gomes [facility]) [...] ascending colon. Several HPs and one TA. Chappell 03/2022 - [place] 1 limited to rectosigmoid, [...] in the last 7068 hours. Invalid input(s): [id number] Heme: No results for input(s): LDH, HAPTOGLOBIN, [...] DM2, and UC who was transferred to [facility] for NSTEMI. Given Brian's presentation [...] Admit to Cardiology, S2 Team Pager # [phone] #NSTEMI > trops elevated to 4143 and 20,000 at OSH - s/p ASA and Plavix load - heparin gtt - continue 81 mg ASA - continue 75 mg plavix - repeat EKG with posterior leads - restarted atorvastatin 80 mg - TTE pending - trending trops here - NPO at midnight for [facility] tomorrow #Migraines - holding propranolol for now, [...] in an outpatient cardiac rehabilitation program at [facility] was discussed. Patient agrees to a referral [...] Operative Note Patient Name: Brian Rodriguez : [id number] MR#: [id number] Case Date: 07/01/2024 Surgeon: Surgeons and Role: [...] 07/01/2024 12:11 PM EDT Brian completed a [place] Advanced directive and stated that if he [...] receiving care in [place] must abide by [place] law. The hierarchy [...] (i) The agent with financial power of litigation attorney associate or a conservator appointed in accordance with [...] homeless or living in a halfway (including now)?: No In the past 12 months has the [employer], gas, oil, or water [employer] threatened to shut off services in your [...] Current DME: none Home Address confirmed as: [address] [place] [id number] Social & Family Supports: All names listed below confirmed with patient as current and correct Extended Emergency Contact Information Primary Emergency Contact: Sabrina Eisenberg Address: [address] [place] [phone] [facility] Mobile Relation: Child Secondary Emergency Contact: [...] Type: *No Product type* / Secondary Insurance: Collaaj ONLY if patient has Medicare A&B - Does this patient have secondary insurance?: Yes ; Prescription Coverage: Yes Preferred Pharmacy: [facility] [address] [address] [place] Status: Patient is a : No Primary Care Provider confirmed: Deaocn Watters, AVIONICS SYSTEMS REPAIRER [phone] Potential Needs for Transition of Care: none [...] Vascular Unit Level 4 [place] [phone] Faheem Joy MD [facility] [place] [address] 08/15/2024 9:00 AM EDT Office Visit Gastroenterology at [place] [phone] Dion Osullivan MD [facility] [place] [address] 09/01/2024 9:40 AM EDT Office Visit Cardiology at [address] [phone] Franky Shaver MD [facility] [place] [address] 09/01/2024 11:20 AM EDT Office Visit Dermatology at [address] [phone] Gómez Mercer MD [facility] DR [place] [address] 09/21/2024 2:45 PM EDT Office Visit Pain and Spine Center at [place] [phone] Trung Hoyos MD [facility] PAIN MANAGEMENT [place] [phone] Scheduled Referrals Name Type Priority Associated Diagnoses [...] PM EDT URINALYSIS BEAKER MICROSCPIC REFLEX EXAM ([facility]) Routine 07/03/2024 3:02 PM EDT URINALYSIS [...] - 199 mg/dL 07/04/2024 2:12 PM EDT [facility] Comment:Supplemental ranges: <140 mg/dL before meals <180 mg/dL all other times of the day. Blood CAPILLARY BLOOD / Unknown 07/04/2024 1:49 PM EDT 07/04/2024 2:12 PM EDT Armond Denny MD POINT OF CARE TEST O RDERABLES [facility] [place] [address] * (ABNORMAL) POC, GLUCOSE (07/04/2024 11:55 AM EDT) Glucometer, POC 287(H) 65 - 199 mg/dL 07/04/2024 11:55 AM EDT [facility] Comment:Supplemental ranges: <140 mg/dL before meals <180 mg/dL all other times of the day. Blood CAPILLARY BLOOD / Unknown 07/04/2024 11:55 AM EDT 07/04/2024 11:55 AM EDT Armond Denny MD POINT OF CARE TEST O RDERABLES Performing Organization Address City/[facility]/ZIP Co de Phone Number [facility] [place] [address] * (ABNORMAL) POC, GLUCOSE (07/04/2024 11:18 AM EDT) Glucometer, POC 259(H) 65 - 199 mg/dL 07/04/2024 11:32 AM EDT [facility] Comment:Supplemental ranges: <140 mg/dL before meals <180 mg/dL all other times of the day. Blood CAPILLARY BLOOD / Unknown 07/04/2024 11:18 AM EDT 07/04/2024 11:32 AM EDT Armond Denny MD POINT OF CARE TEST O RDERAOMAR Performing Organization Address [facility] Co de Phone Number [facility] [place] [address] * POC, GLUCOSE (07/04/2024 8:04 AM EDT) Glucometer, POC 111 65 - 199 mg/dL 07/04/2024 8:04 AM EDT [facility] Comment:Supplemental ranges: <140 mg/dL before meals <180 mg/dL all other times of the day. Blood CAPILLARY BLOOD / Unknown 07/04/2024 8:04 AM EDT 07/04/2024 8:04 AM EDT Armond Denny MD POINT OF CARE TEST O RDERABLES Performing Organization Address City/[facility]/ZIP Co de Phone Number [facility] [address] * Magnesium (07/04/2024 1:43 AM EDT) Magnesium 0.80 0.69 - 1.07 mMol/L 07/04/2024 2:23 AM EDT [facility] Blood VENOUS BLOOD SPECIMEN / Unknown IP Care Team Draw / Unknown 07/04/2024 1:43 AM EDT 07/04/2024 1:52 AM EDT Triston Godinez MD CHEMISTRY ORDERABLES [facility] [address] * (ABNORMAL) Basic Metabolic Panel (07/04/2024 1:43 AM EDT) Glucose 156 65 - 199 mg/dL 07/04/2024 2:23 AM EDT [facility] Comment:Glucose Concentratio n >=200 mg/dL plus symptoms is consistent with Diabetes Mellitus. Blood Urea Nitrogen 12 10 - 20 mg/dL 07/04/2024 2:23 AM EDT [facility] Creatinine 1.27 0.80 - 1.50 mg/dL 07/04/2024 2:23 AM EDT [facility] Sodium 141 135 - 145 mMol/L 07/04/2024 2:23 AM T [facility] Potassium 3.9 3.5 - 5.0 mMol/L 07/04/2024 2:[facility] Chloride 108(H) 98 - 107 mMol/L 07/04/2024 2:23 AM EDT [facility] Carbon Dioxide 22 22 - 31 mMol/L 07/04/2024 2:[facility] Anion Gap 11 5 - 15 mMol/L 07/04/2024 2:23 AM [facility] Calcium 9.4 8.5 - 10.5 mg/dL 07/04/2024 2:[facility] LABORATORY Est Glomerular Filtration Rate - Male 59 mL/min/1. 73 m?? 07/04/2024 2:23 AM EDT [facility] Comment: This [...] AM EDT Triston Godinez MD CHEMISTRY ORDERABLES [facility] [place] [address] * (ABNORMAL) CBC (with Diff) (07/04/2024 1:43 AM EDT) White Blood Cell 5.05 4.00 - 9.50 x10(3)/mc L 07/04/2024 2:00 AM EDT [facility] Red Blood Cell 3.11(L) 4.58 - 5.54 x10(6)/mc L 07/04/2024 2:00 AM EDT [facility] Hemoglobin 10.5(L) 13.7 - 16.5 g/dL 07/04/2024 2:00 AM EDT [facility] Hematocrit 31.5(L) 40.5 - 48.5 % 07/04/2024 2:00 AM EDT [facility] Mean Cell Volume 101.3(H) 82.9 - 93.1 fL 07/04/2024 2:00 AM EDT [facility] Mean Cell Hemoglobin 33.8(H) 27.5 - 32.1 pg 07/04/2024 2:00 AM [facility] Mean Cell Hemoglobin Concentration 33.3 32.0 - 35.7 g/dL 07/04/2024 2:00 AM [facility] Platelet 145 145 - 357 x10(3)/mc L 07/04/2024 2:00 AM [facility] Mean Platelet Volume 11.5 7.6 - 12.9 fL 07/04/2024 2:00 AM [facility] RDW Standard Deviation 48.2(H) 36.0 - 45.0 fL 07/04/2024 2:00 AM [facility] RDW coefficient of variation 13.1 11.4 - 13.8 % 07/04/2024 2:00 AM [facility] NRBC% auto 0.0 % 07/04/2024 2:00 AM [facility] NRBC Absolute 0.00 0.00 - 0.00 x10(3)/mc L 07/04/2024 2:00 AM [facility] Neutrophil % 65.9 % 07/04/2024 2:00 AM [facility] Neutrophil Absolute (ANC) - Automated 3.33 1.70 - 6.10 x10(3)/mc L 07/04/2024 2:00 AM [facility] Lymph % 20.8 % 07/04/2024 2:00 AM [facility] Lymph Absolute 1.05 0.90 - 3.20 x10(3)/mc L 07/04/2024 2:00 AM [facility] Monocyte % 9.3 % 07/04/2024 2:00 AM [facility] Monocyte Absolute 0.47 0.30 - 0.90 x10(3)/mc L 07/04/2024 2:00 AM [facility] Eos % 3.0 % 07/04/2024 2:00 AM [facility] Eos Absolute 0.15 0.00 - 0.40 x10(3)/mc L 07/04/2024 2:00 AM EDT [facility] Basophil % 0.6 % 07/04/2024 2:00 AM EDT [facility] Baso Absolute 0.03 0.00 - 0.10 x10(3)/mc L 07/04/2024 2:00 AM EDT [facility] Immature Gran % 0.4 % 2:00 AM EDT [facility] Immature Gran Absolute 0.02 0.00 - 0.04 x10(3)/mc L 07/04/2024 2:00 AM EDT [facility] Blood VENOUS BLOOD SPECIMEN / Unknown IP Care Team Draw / Unknown 07/04/2024 1:43 AM EDT 07/04/2024 1:52 AM EDT Triston Godinez MD HEMATOLOGY ORDERABLE S Performing Organization Address City/[facility]/ZIP Co de Phone Number [facility] [place] [address] * (ABNORMAL) POC, GLUCOSE (07/03/2024 8:02 PM EDT) Glucometer, POC 251(H) 65 - 199 mg/dL 07/03/2024 8:02 PM EDT [facility] Comment:Supplemental ranges: <140 mg/dL before meals <180 mg/dL all other times of the day. Blood CAPILLARY BLOOD / Unknown 07/03/2024 8:02 PM EDT 07/03/2024 8:02 PM EDT Armond Denny MD POINT OF CARE TEST O RDERABLES [facility] [place] [address] * (ABNORMAL) POC, GLUCOSE (07/03/2024 4:47 PM EDT) Glucometer, POC 217(H) 65 - 199 mg/dL 07/03/2024 4:47 PM EDT [facility] Comment:Supplemental ranges: <140 mg/dL before meals <180 mg/dL all other times of the day. Blood CAPILLARY BLOOD / Unknown 07/03/2024 4:47 PM EDT 07/03/2024 4:47 PM EDT Armond Denny MD POINT OF CARE TEST O RDERAOMAR [facility] [place] [address] * (ABNORMAL) Urine culture (07/03/2024 3:02 PM EDT) Urine Culture 50,000-99,000 cfu/ml Escherichia coli(A) VITEK 2 METHOD 07/05/2024 8:01 AM EDT [facility] Urine Culture 10,000-49,000 cfu/ml mixed mucosal harika VITEK 2 METHOD 07/05/2024 8:01 AM EDT [facility] Urine URINE SPECIMEN [...] ug/ml: Sensitive Armond Denny MD MICROBIOLOGY - [facility] AL ORDERABLES Performing Organization Address City/[facility]/ZIP Co de Phone Number [facility] [place] [address] * (ABNORMAL) Urinalysis Microscopic Reflex to Culture (07/03/2024 3:02 PM EDT) RBC, Urine 2 0 - 3 /HPF 07/03/2024 3:40 PM EDT [facility] WBC, Urine 55(H) 0 - 3 /HPF 07/03/2024 3:40 PM EDT [facility] Squamous Epithelial Cells, Urine 1 0 - 5 /HPF 07/03/2024 3:40 PM EDT [facility] Hyaline Casts, Urine 3(H) 0 - 2 /LPF 07/03/2024 3:40 PM EDT [facility] Comment 07/03/2024 3:40 PM EDT [facility] Comment:Interpret results wi th caution, microscopic results are from a suboptimal specimen. Bacteria, Urine Many(A) None /HPF 3:40 PM EDT [facility] Urine URINE SPECIMEN OBTAINED BY CLEAN CATCH PROCEDURE / Unknown Non Blood Collection / Unknown 07/03/2024 3:02 PM EDT 07/03/2024 3:13 PM EDT Armond Denny MD URINE ORDERABLES Performing Organization Address City/[facility]/ZIP Co de Phone Number [facility] [place] [address] * Urinalysis Microscopic with Reflex to Culture (07/03/2024 3:02 PM EDT) Urine URINE SPECIMEN OBTAINED BY CLEAN CATCH PROCEDURE / Unknown Non Blood Collection / Unknown 07/03/2024 3:02 PM EDT 07/03/2024 3:13 PM EDT Armond Denny MD URINE ORDERABLES [facility] [place] [address] * (ABNORMAL) Urinalysis with reflex Culture (07/03/2024 3:02 PM EDT) Glucose, Urine Dipstick Negative Negative 07/03/2024 3:40 PM EDT [facility] Protein, Urine Dipstick 30 mg/dL(A) Negative 07/03/2024 3:40 PM EDT [facility] Bilirubin, Urine Dipstick Small(A) Negative 07/03/2024 3:40 PM EDT [facility] Comment:Clinical correlation required for positive Urine Bilirubin results as false positive may occur with some drugs and drug related products. If a false positive is suspected a serum total bilirubin should be considered if clinically indicated. Urobilinogen, Urine Dipstick Normal Normal, 0.2 mg/dL, 1.0 mg/dL 07/03/2024 3:40 PM EDT [facility] pH, Urine (dipstick) 5.5 5.0 - 8.0 07/03/2024 3:40 PM EDT [facility] Blood, Urine Dipstick Negative Negative 07/03/2024 3:40 PM EDT [facility] Ketone, Urine Dipstick Trace(A) Negative 07/03/2024 3:40 PM EDT [facility] Nitrite, Urine Dipstick Positive(A) Negative 07/03/2024 3:40 PM EDT [facility] Leukocytes, Urine Dipstick Moderate(A) Negative 07/03/2024 3:40 PM EDT [facility] Specific [place] Urine Automated 1.024 1.005 - 1.030 07/03/2024 3:40 PM EDT [facility] Appearance, Urine Dipstick Cloudy(A) Clear 07/03/2024 3:40 PM EDT [facility] Color, Urine Dipstick Dark Yellow Yellow, Dark Yellow 07/03/2024 3:40 PM EDT [facility] Urine URINE SPECIMEN OBTAINED BY CLEAN CATCH PROCEDURE / Unknown Non Blood Collection / Unknown 07/03/2024 3:02 PM EDT 07/03/2024 3:13 PM EDT Armond Denny MD URINE ORDERABLES [facility] [place] [address] * POC, GLUCOSE (07/03/2024 11:21 AM EDT) Glucometer, POC 177 65 - 199 mg/dL 07/03/2024 11:21 AM EDT [facility] Comment:Supplemental ranges: <140 mg/dL before meals <180 mg/dL all other times of the day. Blood CAPILLARY BLOOD / Unknown 07/03/2024 11:21 AM EDT 07/03/2024 11:21 AM EDT Armond Denny MD POINT OF CARE TEST O RDERABLES Performing Organization Address City/[facility]/ZIP Co de Phone Number [facility] [place] [address] * POC, GLUCOSE (07/03/2024 7:24 AM EDT) Glucometer, POC 124 65 - 199 mg/dL 07/03/2024 7:24 AM EDT [facility] Comment:Supplemental ranges: <140 mg/dL before meals <180 mg/dL all other times of the day. Blood CAPILLARY BLOOD / Unknown 07/03/2024 7:24 AM EDT 07/03/2024 7:24 AM EDT Armond Denny MD POINT OF CARE TEST O RDERABLES [facility] [place] [address] * Magnesium (07/03/2024 4:02 AM EDT) Magnesium 0.86 0.69 - 1.07 mMol/L 07/03/2024 4:41 AM EDT [facility] Blood VENOUS BLOOD SPECIMEN / Unknown IP Care Team Draw / Unknown 07/03/2024 4:02 AM EDT 07/03/2024 4:07 AM EDT Triston Godinez MD CHEMISTRY ORDERABLES [facility] [place] [address] * Basic Metabolic Panel (07/03/2024 4:02 AM EDT) Glucose 146 65 - 199 mg/dL 07/03/2024 4:41 AM EDT [facility] Comment:Glucose Concentratio n >=200 mg/dL plus symptoms is consistent with Diabetes Mellitus. Blood Urea Nitrogen 15 10 - 20 mg/dL 07/03/2024 4:41 AM [facility] Creatinine 1.25 0.80 - 1.50 mg/dL 07/03/2024 4:41 AM [facility] Sodium 138 135 - 145 mMol/L 07/03/2024 4:41 AM [facility] Potassium 3.6 3.5 - 5.0 mMol/L 07/03/2024 4:41 AM [facility] Chloride 105 98 - 107 mMol/L 07/03/2024 4:41 AM [facility] Carbon Dioxide 22 22 - 31 mMol/L 07/03/2024 4:41 AM [facility] Anion Gap 11 5 - 15 mMol/L 07/03/2024 4:41 AM [facility] Calcium 9.2 8.5 - 10.5 mg/dL 07/03/2024 4:41 AM [facility] Est Glomerular Filtration Rate - Male 60 mL/min/1. 73 m?? 07/03/2024 4:41 AM EDT [facility] Comment: This patient's estimated [...] AM EDT Triston Godinez MD CHEMISTRY ORDERABLES [facility] [place] [address] * (ABNORMAL) CBC (with Diff) (07/03/2024 4:02 AM EDT) White Blood Cell 5.90 4.00 - 9.50 x10(3)/mc L 07/03/2024 4:13 AM [facility] Red Blood Cell 3.27(L) 4.58 - 5.54 x10(6)/mc L 07/03/2024 4:13 AM [facility] Hemoglobin 11.0(L) 13.7 - 16.5 g/dL 07/03/2024 4:13 AM [facility] Hematocrit 33.1(L) 40.5 - 48.5 % 07/03/2024 4:13 AM [facility] Mean Cell Volume 101.2(H) 82.9 - 93.1 fL 07/03/2024 4:13 AM [facility] Mean Cell Hemoglobin 33.6(H) 27.5 - 32.1 pg 07/03/2024 4:13 AM [facility] Mean Cell Hemoglobin Concentration 33.2 32.0 - 35.7 g/dL 07/03/2024 4:13 AM [facility] Platelet 156 145 - 357 x10(3)/mc L 07/03/2024 4:13 AM [facility] Mean Platelet Volume 11.3 7.6 - 12.9 fL 07/03/2024 4:13 AM [facility] RDW Standard Deviation 47.5(H) 36.0 - 45.0 fL 07/03/2024 4:13 AM [facility] RDW coefficient of variation 12.7 11.4 - 13.8 % 07/03/2024 4:13 AM [facility] NRBC% auto 0.0 % 07/03/2024 4:13 AM [facility] NRBC Absolute 0.00 0.00 - 0.00 x10(3)/mc L 07/03/2024 4:13 AM [facility] Neutrophil % 70.0 % 07/03/2024 4:13 AM [facility] Neutrophil Absolute (ANC) - Automated 4.13 1.70 - 6.10 x10(3)/mc L 07/03/2024 4:13 AM [facility] Lymph % 18.3 % 07/03/2024 4:13 AM [facility] Lymph Absolute 1.08 0.90 - 3.20 x10(3)/mc L 07/03/2024 4:13 AM [facility] Monocyte % 8.5 % 07/03/2024 4:13 AM [facility] Monocyte Absolute 0.50 0.30 - 0.90 x10(3)/mc L 07/03/2024 4:13 AM [facility] Eos % 2.4 % 07/03/2024 4:13 AM [facility] Eos Absolute 0.14 0.00 - 0.40 x10(3)/mc L 07/03/2024 4:13 AM EDT [facility] Basophil % 0.5 % 07/03/2024 4:13 AM EDT [facility] Baso Absolute 0.03 0.00 - 0.10 x10(3)/mc L 07/03/2024 4:13 AM EDT [facility] Immature Gran % 0.3 % 4:13 AM EDT [facility] Immature Gran Absolute 0.02 0.00 - 0.04 x10(3)/mc L 07/03/2024 4:13 AM EDT [facility] Blood VENOUS BLOOD SPECIMEN / Unknown IP Care Team Draw / Unknown 07/03/2024 4:02 AM EDT 07/03/2024 4:07 AM EDT Triston Godinez MD HEMATOLOGY ORDERABLE S [facility] [place] [address] * (ABNORMAL) POC, GLUCOSE (07/02/2024 8:45 PM EDT) Glucometer, POC 271(H) 65 - 199 mg/dL 07/02/2024 8:46 PM EDT [facility] Comment:Supplemental ranges: <140 mg/dL before meals <180 mg/dL all other times of the day. Blood CAPILLARY BLOOD / Unknown 07/02/2024 8:45 PM EDT 07/02/2024 8:46 PM EDT Armond Denny MD POINT OF CARE TEST O RDERABLES [facility] [place] [address] * (ABNORMAL) POC, GLUCOSE (07/02/2024 4:18 PM EDT) Glucometer, POC 213(H) 65 - 199 mg/dL 07/02/2024 4:19 PM EDT [facility] Comment:Supplemental ranges: <140 mg/dL before meals <180 mg/dL all other times of the day. Blood CAPILLARY BLOOD / Unknown 07/02/2024 4:18 PM EDT 07/02/2024 4:19 PM EDT Armond Denny MD POINT OF CARE TEST O RDERABLES Performing Organization Address City/[facility]/ZIP Co de Phone Number [facility] [place] [address] * (ABNORMAL) POC, GLUCOSE (07/02/2024 11:21 AM EDT) Glucometer, POC 234(H) 65 - 199 mg/dL 07/02/2024 11:21 AM EDT [facility] Comment:Supplemental ranges: <140 mg/dL before meals <180 mg/dL all other times of the day. Blood CAPILLARY BLOOD / Unknown 07/02/2024 11:21 AM EDT 07/02/2024 11:21 AM EDT Armond Denny MD POINT OF CARE TEST O RDERAOMAR Performing Organization Address [facility]/ZIP Co de Phone Number [facility] [place] [address] * POC, GLUCOSE (07/02/2024 7:28 AM EDT) Glucometer, POC 171 65 - 199 mg/dL 07/02/2024 7:28 AM EDT [facility] Comment:Supplemental ranges: <140 mg/dL before meals <180 mg/dL all other times of the day. Blood CAPILLARY BLOOD / Unknown 07/02/2024 7:28 AM EDT 07/02/2024 7:28 AM EDT Armond Denny MD POINT OF CARE TEST O RDERAOMAR [facility] [place] [address] * Magnesium (07/02/2024 7:12 AM EDT) Magnesium 0.89 0.69 - 1.07 mMol/L 07/02/2024 8:09 AM EDT [facility] Blood VENOUS BLOOD SPECIMEN / Unknown IP Care Team Draw / Unknown 07/02/2024 7:12 AM EDT 07/02/2024 7:19 AM EDT Triston Godinez MD CHEMISTRY ORDERABLES [facility] [place] [address] * Basic Metabolic Panel (07/02/2024 7:12 AM EDT) Glucose 161 65 - 199 mg/dL 07/02/2024 8:09 AM EDT [facility] Comment:Glucose Concentratio n >=200 mg/dL plus symptoms is consistent with Diabetes Mellitus. Blood Urea Nitrogen 13 10 - 20 mg/dL 07/02/2024 8:09 AM [facility] Creatinine 1.18 0.80 - 1.50 mg/dL 07/02/2024 8:09 AM [facility] Sodium 136 135 - 145 mMol/L 07/02/2024 8:09 AM [facility] Potassium 3.6 3.5 - 5.0 mMol/L 07/02/2024 8:09 AM [facility] Chloride 104 98 - 107 mMol/L 07/02/2024 8:09 AM [facility] Carbon Dioxide 24 22 - 31 mMol/L 07/02/2024 8:09 AM [facility] Anion Gap 8 5 - 15 mMol/L 07/02/2024 8:09 AM [facility] Calcium 8.8 8.5 - 10.5 mg/dL 07/02/2024 8:09 AM [facility] Est Glomerular Filtration Rate - Male 64 mL/min/1. 73 m?? 07/02/2024 8:09 AM [facility] Comment: This patient's estimated [...] AM EDT Triston Godinez MD CHEMISTRY ORDERABLES [facility] [place] [address] * (ABNORMAL) CBC (with Diff) (07/02/2024 7:12 AM EDT) White Blood Cell 5.99 4.00 - 9.50 x10(3)/mc L 07/02/2024 7:41 AM [facility] Red Blood Cell 3.36(L) 4.58 - 5.54 x10(6)/mc L 07/02/2024 7:41 AM [facility] Hemoglobin 11.3(L) 13.7 - 16.5 g/dL 07/02/2024 7:41 AM [facility] Hematocrit 34.3(L) 40.5 - 48.5 % 07/02/2024 7:41 AM [facility] Mean Cell Volume 102.1(H) 82.9 - 93.1 fL 07/02/2024 7:41 AM [facility] Mean Cell Hemoglobin 33.6(H) 27.5 - 32.1 pg 07/02/2024 7:41 AM [facility] Mean Cell Hemoglobin Concentration 32.9 32.0 - 35.7 g/dL 07/02/2024 7:41 AM [facility] Platelet 155 145 - 357 x10(3)/mc L 07/02/2024 7:41 AM [facility] Mean Platelet Volume 11.3 7.6 - 12.9 fL 07/02/2024 7:41 AM [facility] RDW Standard Deviation 48.2(H) 36.0 - 45.0 fL 07/02/2024 7:41 AM [facility] RDW coefficient of variation 12.9 11.4 - 13.8 % 07/02/2024 7:41 AM [facility] NRBC% auto 0.0 % 07/02/2024 7:41 AM [facility] NRBC Absolute 0.00 0.00 - 0.00 x10(3)/mc L 07/02/2024 7:41 AM [facility] Neutrophil % 75.2 % 07/02/2024 7:41 AM [facility] Neutrophil Absolute (ANC) - Automated 4.50 1.70 - 6.10 x10(3)/mc L 07/02/2024 7:41 AM [facility] Lymph % 14.0 % 07/02/2024 7:41 AM [facility] Lymph Absolute 0.84(L) 0.90 - 3.20 x10(3)/mc L 07/02/2024 7:41 AM [facility] Monocyte % 8.7 % 07/02/2024 7:41 AM [facility] Monocyte Absolute 0.52 0.30 - 0.90 x10(3)/mc L 07/02/2024 7:41 AM [facility] Eos % 1.3 % 07/02/2024 7:41 AM [facility] Eos Absolute 0.08 0.00 - 0.40 x10(3)/mc L 07/02/2024 7:41 AM EDT [facility] Basophil % 0.5 % 07/02/2024 7:41 AM EDT [facility] Baso Absolute 0.03 0.00 - 0.10 x10(3)/mc L 07/02/2024 7:41 AM EDT [facility] Immature Gran % 0.3 % 7:41 AM EDT [facility] Immature Gran Absolute 0.02 0.00 - 0.04 x10(3)/mc L 07/02/2024 7:41 AM EDT [facility] Blood VENOUS BLOOD SPECIMEN / Unknown IP Care Team Draw / Unknown 07/02/2024 7:12 AM EDT 07/02/2024 7:19 AM EDT Triston Godinez MD HEMATOLOGY ORDERABLE S Performing Organization Address City/State/[facility] Co de Phone Number [facility] [place] [address] * CT Abdomen & Pelvis w Contrast (07/02/2024 3:13 AM EDT) [employer] WORKSTATION ID [id number] DH RAD Anatomical Region Laterality Modality Abdomen, [...] who have questions please contact the health adult daycare coordinator that requested your imaging first. ? Electronically signed by: Gutierrez Hamilton MD, [facility] ([phone]), at 07/02/2024 9:20 AM Narrative 07/02/2024 9:20 [...] patients who have questions please contactthe health adult daycare coordinator that requested your imaging first. Electronically signed by: Gutierrez Hamilton MD, [facility]([phone]), at 07/02/2024 9:20 AM Triston Godinez MD IMG CT ORDERABLES * POC, GLUCOSE (07/01/2024 7:58 PM EDT) Glucometer, POC 84 65 - 199 mg/dL 07/01/2024 7:59 PM EDT [facility] Comment:Supplemental ranges: <140 mg/dL before meals <180 mg/dL all other times of the day. Blood CAPILLARY BLOOD / Unknown 07/01/2024 7:58 PM EDT 07/01/2024 7:59 PM EDT Armond Denny MD POINT OF CARE TEST O CEE Performing Organization Address [facility] Co de Phone Number [facility] [place] [address] * POC, GLUCOSE (07/01/2024 6:41 PM EDT) [facility] Glucometer, POC 91 65 - 199 mg/dL 07/01/2024 6:41 PM EDT [facility] Comment:Supplemental ranges: <140 mg/dL before meals <180 mg/dL all other times of the day. Blood CAPILLARY BLOOD / Unknown 07/01/2024 6:41 PM EDT 07/01/2024 6:41 PM EDT Armond Denny MD POINT OF CARE TEST O CEE Performing Organization Address [facility]/ZIP Co de Phone Number [facility] [place] [address] * EKG 12 Lead (07/01/2024 5:24 PM EDT) [facility] Ventricular rate 77 BPM MUSE SYSTEM Atrial Rate 77 BPM MUSE SYSTEM P-R Interval 178 ms MUSE SYSTEM QRS Duration 138 ms MUSE SYSTEM Q-T Interval 418 ms MUSE SYSTEM QTC Calculated (Bezet) 473 ms MUSE SYSTEM Calculated P [place] 63 degrees MUSE SYSTEM Calculated R [place] 87 degrees MUSE SYSTEM Calculated T [place] 8 degrees MUSE SYSTEM INTERPRETATION Normal sinus [...] Modality Other Narrative 07/01/2024 7:47 PM EDT ?[facility] ? Cardiac Catheterization/Intervention Report ? Patient Name: Brian Rodriguez ? Procedure Date: 07/01/2024 ? A #: [id number] ? Primary Physician: Mogadam, Emad ? Case #: [id number] ? File Name: [id number] ? Catheterization Order Number: [id number] ? [facility] ? Final Report [place], [place] ? Patient Name: ? Brian M. Rodriguez ?ID#: ?[id number] ? : ?[id number] ? Procedure Date: ? [...] was Urgent. The indication for ?the laborer [place] visit is ACS less than or equal [...] A premounted 2.75 x 22 mm Rodo [place] (EILEEN) was deployed ? with a maximum [...] administered prior to arrival in the laborer tanbark. ?Recommended anti-platelet/anti-thrombotic regimen: ?Continue aspirin 81 mg [...] Procedure Note Lizzette Hayden MD - 07/14/2024 [facility] Cardiac Catheterization/Intervention Report Patient Name: Brian Rodriguez Procedure Date: 07/01/2024 A #: [id number] Primary Physician: Lizzette Hayden Case #: [id number] File Name: [id number] Catheterization Order Number: [id number] [facility] FinalReport [place], [place] Patient Name: Brian Rodriguez ID#:[id number] :[id number] Procedure Date: July 01, 2024 Case [...] designated as ASA Class III. [facility] 4: Vulnerable. Diagnostic Tests: Medications Prior to Procedure: Aspirin, Angiotensin II Receptor Leo and Statin. Indications for Diagnostic Cath: The priority of the diagnostic procedure was Urgent. The indicationfor the laborer tanbark visit is ACS less than or equal [...] time was 37.0 minutes, dose area product [id number] Gy/cm2 and air kerma was 1,874 mGY. [...] The lesion was predilated with a 2.50mm [id number] MM balloon with a maximum inflation pressure of 14atmospheres. A premounted 2.75 x 22 mm [place] (EILEEN) wasdeployed with a maximum inflation pressure [...] administered prior to arrival in the laborer tanbark. Recommended anti-platelet/anti-thrombotic regimen: Continue aspirin 81 mg [...] * POC, GLUCOSE (07/01/2024 11:35 AM EDT) [facility] Glucometer, POC 126 65 - 199 mg/dL 07/01/2024 11:35 AM EDT [facility] Comment:Supplemental ranges: <140 mg/dL before meals <180 mg/dL all other times of the day. Blood CAPILLARY BLOOD / Unknown 07/01/2024 11:35 AM EDT 07/01/2024 11:35 AM EDT Armond Denny MD POINT OF CARE TEST O RDERABLES [facility] [place] [address] * (ABNORMAL) Hemogram (07/01/2024 10:32 AM EDT) White Blood Cell 7.02 4.00 - 9.50 x10(3)/mc L 07/01/2024 11:20 AM EDT [facility] Red Blood Cell 3.68(L) 4.58 - 5.54 x10(6)/mc L 07/01/2024 11:20 AM EDT [facility] Hemoglobin 12.2(L) 13.7 - 16.5 g/dL 07/01[facility]24 [facility] Hematocrit 36.5(L) 40.5 - 48.5 % 07/01/2024 11:20 AM EDT [facility] Mean Cell Volume 99.2(H) 82.9 - 93.1 fL 07/01/2024 11:20 AM T [facility] Mean Cell Hemoglobin 33.2(H) 27.5 - 32.1 pg 07/01/2024 11:20 AM [facility] Mean Cell Hemoglobin Concentration 33.4 32.0 - 35.7 g/dL 07/01/2024 11:20 AM [facility] Platelet 167 145 - 357 x10(3)/mc L 07/01/2024 11:20 AM EDT [facility] Mean Platelet Volume 11.4 7.6 - 12.9 fL 07/01/2024 11:[facility] RDW Standard Deviation 46.5(H) 36.0 - 45.0 fL 07/01/2024 11:[facility] RDW coefficient of variation 12.9 11.4 - 13.8 % 07/01/2024 11:20 AM [facility] NRBC% auto 0.0 % 07/01/2024 11:20 AM EDT [facility] NRBC Absolute 0.00 0.00 - 0.00 x10(3)/mc L 07/01/2024 11:20 AM EDT [facility] Blood VENOUS BLOOD SPECIMEN / Unknown IP Care Team Draw / Unknown 07/01/2024 10:32 AM EDT 07/01/2024 10:54 AM EDT Armond Denny MD HEMATOLOGY ORDERABLE S [facility] [place] [address] * Heparin (unfractionated) Level (07/01/2024 10:32 AM EDT) UF Heparin 0.31 IU/mL 07/01/2024 11:25 AM EDT [facility] Comment: Heparin (anti-Xa) [...] EDT Triston Godinez MD HEMATOLOGY ORDERABLE S [facility] [place] [address] * POC, GLUCOSE (07/01/2024 7:18 AM EDT) Glucometer, POC 105 65 - 199 mg/dL 07/01/2024 7:19 AM EDT [facility] Comment:Supplemental ranges: <140 mg/dL before meals <180 mg/dL all other times of the day. Blood CAPILLARY BLOOD / Unknown 07/01/2024 7:18 AM EDT 07/01/2024 7:19 AM EDT Triston Godinez MD POINT OF CARE TEST O RDERABLES [facility] [place] [address] * Heparin (unfractionated) Level (07/01/2024 3:15 AM EDT) UF Heparin 0.36 IU/mL 07/01/2024 4:23 AM EDT [facility] Comment: Heparin (anti-Xa) [...] EDT Triston Godinez MD HEMATOLOGY ORDERABLE S [facility] [place] [address] * (ABNORMAL) CBC (with Diff) (07/01/2024 3:15 AM EDT) White Blood Cell 5.82 4.00 - 9.50 x10(3)/mc L 07/01/2024 3:54 AM EDT [facility] Red Blood Cell 3.60(L) 4.58 - 5.54 x10(6)/mc L 07/01/2024 3:54 AM EDT [facility] Hemoglobin 11.9(L) 13.7 - 16.5 g/dL 07/01/2024 3:54 AM EDT [facility] Hematocrit 35.6(L) 40.5 - 48.5 % 07/01/2024 3:54 AM EDT [facility] Mean Cell Volume 98.9(H) 82.9 - 93.1 fL 07/01/2024 3:54 AM EDT [facility] Mean Cell Hemoglobin 33.1(H) 27.5 - 32.1 pg 07/01/2024 3:54 AM EDT [facility] Mean Cell Hemoglobin Concentration 33.4 32.0 - 35.7 g/dL 07/01/2024 3:54 AM EDT [facility] Platelet 169 145 - 357 x10(3)/mc L 07/01/2024 3:54 AM EDT [facility] Mean Platelet Volume 11.6 7.6 - 12.9 fL 07/01/2024 3:54 AM EDT [facility] RDW Standard Deviation 46.3(H) 36.0 - 45.0 fL 07/01/2024 3:54 AM EDT [facility] RDW coefficient of variation 12.8 11.4 - 13.8 % 07/01/2024 3:54 AM EDT [facility] NRBC% auto 0.0 % 07/01/2024 3:[facility] NRBC Absolute 0.00 0.00 - 0.00 x10(3)/mc L 07/01/2024 3:54 AM [facility] Neutrophil % 66.6 % 07/01/2024 3:54 AM [facility] Neutrophil Absolute (ANC) - Automated 3.87 1.70 - 6.10 x10(3)/mc L 07/01/2024 3:54 AM EDT [facility] Lymph % 20.4 % 07/01/2024 3:54 AM [facility] Lymph Absolute 1.19 0.90 - 3.20 x10(3)/mc L 07/01/2024 3:54 AM [facility] Monocyte % 9.6 % 07/01/2024 3:54 AM [facility] Monocyte Absolute 0.56 0.30 - 0.90 x10(3)/mc L 07/01/2024 3:54 AM [facility] Eos % 2.6 % 07/01/2024 3:54 AM [facility] Eos Absolute 0.15 0.00 - 0.40 x10(3)/mc L 07/01/2024 3:54 AM [facility] Basophil % 0.5 % 07/01/2024 3:54 AM [facility] Baso Absolute 0.03 0.00 - 0.10 x10(3)/mc L 07/01/2024 3:54 AM [facility] Immature Gran % 0.3 % 3:54 AM [facility] Immature Gran Absolute 0.02 0.00 - 0.04 x10(3)/mc L 07/01/2024 3:54 AM [facility] Blood VENOUS BLOOD SPECIMEN / Unknown IP Care Team Draw / Unknown 07/01/2024 3:15 AM EDT 07/01/2024 3:37 AM EDT Triston Godinez MD HEMATOLOGY ORDERABLE S [facility] [place] [address] * Magnesium (06/30/2024 11:25 PM EDT) Magnesium 0.84 0.69 - 1.07 mMol/L 07/01/2024 12:14 AM EDT [facility] Blood VENOUS BLOOD SPECIMEN / Unknown IP Care Team Draw / Unknown 06/30/2024 11:25 PM EDT 06/30/2024 11:47 PM EDT Triston Godinez MD CHEMISTRY ORDERABLES Performing Organization Address City/[facility]/ZIP Co de Phone Number [facility] [place] [address] * (ABNORMAL) Basic Metabolic Panel (06/30/2024 11:25 PM EDT) Glucose 145 65 - 199 mg/dL 07/01/2024 12:14 AM EDT [facility] Comment:Glucose Concentratio n >=200 mg/dL plus symptoms is consistent with Diabetes Mellitus. Blood Urea Nitrogen 10 10 - 20 mg/dL 07/01/2024 12:14 AM EDT [facility] Creatinine 1.02 0.80 - 1.50 mg/dL 07/01/2024 12:14 AM EDT [facility] Sodium 141 135 - 145 mMol/L 07/01/2024 12:14 AM EDT [facility] Potassium 3.4(L) 3.5 - 5.0 mMol/L 07/01/2024 12:14 AM EDT [facility] Chloride 106 98 - 107 mMol/L 07/01/2024 12:14 AM EDT [facility] Carbon Dioxide 25 22 - 31 mMol/L 07/01/2024 12:14 AM EDT [facility] Anion Gap 10 5 - 15 mMol/L 07/01/2024 12:14 AM EDT [facility] Calcium 9.2 8.5 - 10.5 mg/dL 07/01/2024 12:14 AM T [facility] Est Glomerular Filtration Rate - Male 76 mL/min/1. 73 m?? 07/01/2024 12:14 AM EDT [facility] Comment: This [...] [facility] Fasting Status 07/01/2024 12:14 AM T [facility] Blood VENOUS BLOOD SPECIMEN / Unknown IP Care Team Draw / Unknown 06/30/2024 11:25 PM EDT 06/30/2024 11:47 PM EDT Triston Godinez MD CHEMISTRY ORDERABLES [facility] [place] [address] * (ABNORMAL) Troponin-T, Yuriy Sensitivity 3 Hour (06/30/2024 11:25 PM EDT) Troponin-T, High Sensitivity 1,274(H) <=22 ng/L 07/01/2024 12:14 AM EDT [facility] Comment: This [...] found in the [facility] Laboratory Test Catalog Troponin - https://[facility]It[facility] USA [email or web address]/catalogs/565/files/33051 Reference: Fourth [place] Definition of Myocardial Infarction. Journal of the [place] [employer] 2018;72:8528-0966 Troponin-T, HS 3 hr delta 65 ng/L 07/01/2024 12:14 AM EDT [facility] Comment:The 3 hour [...] PM EDT Triston Godinez MD CHEMISTRY ORDERABLES [facility] [place] [place] [address] * (ABNORMAL) Troponin-T, High Sensitivity 1 Hour (06/30/2024 8:22 PM EDT) [facility] Troponin-T, High Sensitivity 1,234(H) <=22 ng/L 06/30/2024 9:22 PM EDT [facility] Comment: This [...] found in the [facility] Laboratory Test Catalog Troponin - https://[facility].testcatalog.org/catalogs/565/files/08984 Reference: Fourth [place] Definition of Myocardial Infarction. Journal of the [employer] 2018;72:6426-1709 Troponin-T, HS 1 hr delta 06/30/2024 9:22 PM EDT [facility] Comment:Delta troponin value not calculated, sample collected outside of delta calculation time limit. Blood VENOUS BLOOD SPECIMEN / Unknown Venipuncture / Unknown 06/30/2024 8:22 PM EDT 06/30/2024 8:40 PM EDT Triston Godinez MD CHEMISTRY ORDERABLES Performing Organization Address [facility] Co de Phone Number [facility] [place] [address] * POC, GLUCOSE (06/30/2024 7:56 PM EDT) [facility] Glucometer, POC 144 65 - 199 mg/dL 06/30/2024 7:57 PM EDT [facility] Comment:Supplemental ranges: <140 mg/dL before meals <180 mg/dL all other times of the day. Blood CAPILLARY BLOOD / Unknown 06/30/2024 7:56 PM EDT 06/30/2024 7:57 PM EDT Triston Godinez MD POINT OF CARE TEST O RDERABLES Performing Organization Address [facility] Co de Phone Number [facility] [place] [address] * XR Abdomen Flat & Upright (06/30/2024 6:56 PM EDT) WORKSTATION ID [id number] RAD Anatomical Region Laterality Modality Abdomen N/A Digital Radiogra phy Impressions 06/30/2024 9:12 PM EDT No obstruction or perforation. Thank you for letting us participate in the care of this patient. ??If you are a health care provider and have any questions regarding this report, please contact the number below. ??For patients who have questions please contact the health adult daycare coordinator that requested your imaging first. ? Electronically signed by: Shireen Hurtado MD, [facility] ([phone]), at 06/30/2024 9:12 PM Narrative 06/30/2024 9:12 [...] patients who have questions please contactthe health adult daycare coordinator that requested your imaging first. Electronically signed by: Shireen Hurtado MD, [facility]([phone]), at 06/30/2024 9:12 PM Triston Godinez MD IMG DX ORDERABLES * (ABNORMAL) Troponin-T, High Sensitivity (06/30/2024 6:09 PM EDT) [facility] Troponin-T, High Sensitivity Initial 1,209([facility] ) <=22 ng/L 06/30/2024 7:23 PM EDT [facility] Comment: This [...] found in the [facility] Laboratory Test Catalog Troponin - https://[email or web address].org/catalogs/565/files/89057 Reference: Fourth [place] Definition of Myocardial Infarction. Journal of the [employer] 2018;72:1466-9443 Blood VENOUS BLOOD SPECIMEN / Unknown Venipuncture / Unknown 06/30/2024 6:09 PM EDT 06/30/2024 6:18 PM EDT Triston Godinez MD CHEMISTRY ORDERABLES [facility] [place] [address] * (ABNORMAL) Basic Metabolic Panel (06/30/2024 6:09 PM EDT) Glucose 06/30/2024 8:08 PM EDT [facility] Comment:Insufficient sample. Informed Alli Meyers at 20:07, 06.30.2024. Blood Urea Nitrogen 10 10 - 20 mg/dL 06/30/2024 8:08 PM EDT [facility] Creatinine 0.98 0.80 - 1.50 mg/dL 06/30/2024 8:08 PM EDT [facility] Sodium 140 135 - 145 mMol/L 06/30/2024 8:08 PM [facility] Potassium 4.2 3.5 - 5.0 mMol/L 06/30/2024 8:08 PM EDT [facility] Chloride 105 98 - 107 mMol/L 06/30[facility]2024 [facility] Carbon Dioxide 21(L) 22 - 31 mMol/L 06/30/2024 8:08 PM EDT [facility] Anion Gap 14 5 - 15 mMol/L 06/30/2024 8:08 PM EDT [facility] Calcium 06/30/2024 8:08 PM EDT [facility] Comment:Insufficient sample. Informed Alli Meyers at 20:07, 06.30.2024. Est Glomerular Filtration Rate - Male 80 mL/min/1. 73 m?? 06/30/2024 8:08 PM EDT [facility] Comment: This [...] Fasting Status Yes 06/30/2024 8:08 PM EDT [facility] Blood VENOUS BLOOD SPECIMEN / Unknown Venipuncture / Unknown 06/30/2024 6:09 PM EDT 06/30/2024 6:18 PM EDT Triston Godinez MD CHEMISTRY ORDERABLES [facility] [place] [address] * Lipid Panel (Reflex Direct LDL) (06/30/2024 6:09 PM EDT) Cholesterol, Total 197 mg/dL 06/30/2024 6:51 PM EDT [facility] Comment: Desirable: < 200 mg/dL Borderline High: 200 - 239 mg/dL High: > or = 240 mg/dL Triglyceride 230 mg/dL 06/30/2024 6:51 PM EDT [facility] Comment: Normal: <150 mg/dL Borderline High: 150-199 mg/dL High: 200-499 mg/dL Very High: > or =500 mg/dL HDL Cholesterol 36 mg/dL 6:51 PM EDT [facility] Comment:Males: High Risk: <4 0 mg/dL LDL Cholesterol 120 mg/dL 6:51 PM T [facility] Comment: Desirable: <100 mg/dL Above Desirable: 100-129 mg/dL Borderline High: 130-159 mg/dL High: 160-189 mg/dL Very High: > or =190 mg/dL Note: LDL calculation updated to the NIH LDL formula as of 06/26/2024 Non-HDL Cholesterol 161 mg/dL 06/30/2024 6:51 PM EDT [facility] Comment: Desirable: <130 mg/dL Above Desirable: 130-159 mg/dL Borderline High: 160-189 mg/dL High: 190-219 mg/dL Very High: > or = 220 mg/dL Blood VENOUS BLOOD SPECIMEN / Unknown Venipuncture / Unknown 06/30/2024 6:09 PM EDT 06/30/2024 6:18 PM EDT [facility] - 06/30/2024 6:51 PM [...] ACC/AHA Guidelines (most recently Brianne et al. [facility] 08/26/22): * For individuals with atherosclerotic [...] Godinez MD CHEMISTRY ORDERABLES Performing Organization Address [facility] Co de Phone Number [facility] [place] [address] * (ABNORMAL) pro-Brain Natriuretic Peptide (06/30/2024 6:09 PM EDT) NT-proBNP 2,259(H) <=449 pg/mL 06/30/2024 6:51 PM EDT [facility] Blood VENOUS BLOOD SPECIMEN / Unknown Venipuncture / Unknown 06/30/2024 6:09 PM EDT 06/30/2024 6:18 PM EDT Triston Godinez MD CHEMISTRY ORDERABLES Performing Organization Address [facility] Co de Phone Number [facility] [place] [address] * TSH (06/30/2024 6:09 PM EDT) Thyroid Stimulating Hormone 2.80 0.27 - 4.20 mcIU/mL 06/30/2024 6:51 PM EDT [facility] Blood VENOUS BLOOD SPECIMEN / Unknown Venipuncture / Unknown 06/30/2024 6:09 PM EDT 06/30/2024 6:18 PM EDT Triston Godinez MD CHEMISTRY ORDERABLES Performing Organization Address [facility] Co de Phone Number [facility] [place] [address] * Heparin (unfractionated) Level (06/30/2024 6:08 PM EDT) [facility] UF Heparin 0.07 IU/mL 06/30/2024 6:34 PM EDT [facility] Comment: Heparin (anti-Xa) [...] EDT Triston Godinez MD HEMATOLOGY ORDERABLE S [facility] [place] [address] * (ABNORMAL) CBC (with Diff) (06/30/2024 6:08 PM EDT) [facility] White Blood Cell 6.45 4.00 - 9.50 x10(3)/mc L 06/30/2024 6:36 PM EDT [facility] Red Blood Cell 3.78(L) 4.58 - 5.54 x10(6)/mc L 06/30/2024 6:36 PM EDT [facility] Hemoglobin 12.7(L) 13.7 - 16.5 g/dL 06/30/2024 6:36 PM EDT [facility] Hematocrit 38.0(L) 40.5 - 48.5 % 06/30/2024 6:36 PM [facility] Mean Cell Volume 100.5(H) 82.9 - 93.1 fL 06/30/2024 6:36 PM [facility] Mean Cell Hemoglobin 33.6(H) 27.5 - 32.1 pg 06/30/2024 6:36 PM [facility] Mean Cell Hemoglobin Concentration 33.4 32.0 - 35.7 g/dL 06/30/2024 6:36 PM [facility] Platelet 79(L) 145 - 357 x10(3)/mc L 06/30/2024 6:36 PM [facility] Mean Platelet Volume 11.2 7.6 - 12.9 fL 06/30/2024 6:36 PM [facility] RDW Standard Deviation 48.4(H) 36.0 - 45.0 fL 06/30/2024 6:36 PM [facility] RDW coefficient of variation 13.0 11.4 - 13.8 % 06/30/2024 6:36 PM [facility] NRBC% auto 0.0 % 06/30/2024 6:36 PM [facility] NRBC Absolute 0.00 0.00 - 0.00 x10(3)/mc L 06/30/2024 6:36 PM [facility] Neutrophil % 71.2 % 06/30/2024 6:36 PM [facility] Neutrophil Absolute (ANC) - Automated 4.59 1.70 - 6.10 x10(3)/mc L 06/30/2024 6:36 PM [facility] Lymph % 18.1 % 06/30/2024 6:36 PM [facility] Lymph Absolute 1.17 0.90 - 3.20 x10(3)/mc L 06/30/2024 6:36 PM [facility] Monocyte % 8.2 % 06/30/2024 6:36 PM EDT [facility] Monocyte Absolute 0.53 0.30 - 0.90 x10(3)/mc L 06/30/2024 6:36 PM EDT [facility] Eos % 1.7 % 06/30/2024 6:36 PM EDT [facility] Eos Absolute 0.11 0.00 - 0.40 x10(3)/mc L 06/30/2024 6:36 PM EDT [facility] Basophil % 0.6 % 06/30/2024 6:36 PM EDT [facility] Baso Absolute 0.04 0.00 - 0.10 x10(3)/mc L 06/30/2024 6:36 PM EDT [facility] Immature Gran % 0.2 % 6:36 PM EDT [facility] Immature Gran Absolute 0.01 0.00 - 0.04 x10(3)/mc L 06/30/2024 6:36 PM EDT [facility] Blood VENOUS BLOOD SPECIMEN / Unknown Venipuncture / Unknown 06/30/2024 6:08 PM EDT 06/30/2024 6:18 PM EDT Triston Godinez MD HEMATOLOGY ORDERABLE S [facility] [place] [address] * (ABNORMAL) Hemoglobin A1c (06/30/2024 6:08 PM EDT) Hemoglobin A1c 7.3(H) 4.3 - 5.6 % 06/30/2024 9:03 PM EDT [facility] Comment: Per ADA [...] red blood cell turnover may not be labor relations representative of glycemic control. Reference Interval: 4.3 - 5.6% 5.7 - 6.4%: Consistent with prediabetes >=6.5%: Consistent with diagnosis of diabetes mellitus Estimated Average Glucose 06/30/2024 9:03 PM EDT [facility] Comment:Not Calculated. Blood VENOUS BLOOD SPECIMEN / Unknown Venipuncture / Unknown 06/30/2024 6:08 PM EDT 06/30/2024 6:18 PM EDT Narrative [facility] - 06/30/2024 9:03 PM EDT Estimated average glucose (eAG) is calculated from the equation described in: John ELLISON, Inna J, Nic R, et al. ??Translating the A1C assay into estimated average glucose values. ??Diabetes Care 2008:31(8):1777-8777. Additional resources are available on the ADA website (diabetes.org). Triston Godinez MD CHEMISTRY ORDERABLES Performing Organization Address City/[facility]/ZIP Co de Phone Number [facility] [place] [address] * POC, GLUCOSE (06/30/2024 5:58 PM EDT) Glucometer, POC 148 65 - 199 mg/dL 06/30/2024 5:58 PM EDT [facility] Comment:Supplemental ranges: <140 mg/dL before meals <180 mg/dL all other times of the day. Blood CAPILLARY BLOOD / Unknown 06/30/2024 5:58 PM EDT 06/30/2024 5:58 PM EDT Triston Godinez MD POINT OF CARE TEST O RDERABLES Performing Organization Address City/[facility]/ZIP Co de Phone Number [facility] [place] [address] * EKG 12 Lead (06/30/2024 5:23 PM EDT) Ventricular rate 73 BPM MUSE SYSTEM Atrial Rate 300 BPM MUSE SYSTEM QRS Duration 72 ms MUSE SYSTEM Q-T Interval 404 ms MUSE SYSTEM QTC Calculated (Bezet) 445 ms MUSE SYSTEM Calculated P [place] 71 degrees MUSE SYSTEM Calculated R [place] 65 degrees MUSE SYSTEM Calculated T [place] 30 degrees MUSE SYSTEM INTERPRETATION Normal sinus [...] NSTEMI (non-ST elevation myocardial infarction) Exam Location: [facility]. ? Conclusions -Left ventricular systolic function is moderately reduced. The left ventricular ejection fraction is 36% by Dowd's biplane. The anterolateral and inferolateral [place] are akinetic. The anterior wall is hypokinetic. -Right ventricle is mildly dilated. Systolic function is normal. -No significant valve disease. -See report for additional findings. No prior study is available. Procedure Complete-[id number]. Image enhancement Optison was used for left [...] NSTEMI (non-ST elevation myocardial infarction) Exam Location: [facility]. Conclusions -Left ventricular systolic function is moderately reduced. The leftventricular ejection fraction is 36% by Dowd's biplane. The anterolateral andinferolateral [place] are akinetic. The anterior wall is hypokinetic. -Right ventricle is mildly dilated. Systolic function is normal. -No significant valve disease. -See report for additional findings. No prior study is available. Procedure Complete-[id number]. Image enhancement Optison was used for left [...] (Bezet) 460 ms MUSE SYSTEM Calculated P [place] 69 degrees MUSE SYSTEM Calculated R [place] 78 degrees MUSE SYSTEM Calculated T [place] 39 degrees MUSE SYSTEM INTERPRETATION Sinus rhythm [...] 06/30/24 at 2100, Until Discontinued, Routine Given 07/04/2024 [...] 0836 (Given - Provider: Jenny Reddy RN) insulin glargine-ygfn (Semglee) (100 unit/mL) subcutaneous [...] dose on Thu06/30/24 at 1645, Until Discontinued 0810 (Given - [...] EVERY 6 HOURS SCHEDULED, First dose on Thu24 at 1200, Until Discontinued, Routine 1118 (Given [...] 40 mg, Oral, DAILY, First dose on Trsea 06/30/24 at 1615, Until Discontinued 0808 (Given [...] RN)204 (Given - Provider: Shea Shaver RN) 0825 (Given - Provider: Jenny Reddy RN)2011 (Given [...] Shaver RN)1527 (Given - Provider: Jenny Reddy, RONY) 0316 (Given - Provider: Shea Shaver RN)1500 (Due - Provider: Iram De Jesus [facility]) tamsulosin (Flomax) capsule 0.8 mg 0.8 mg, [...] Contrast, Routine 0314 (Given - Provider: Caron R D'Ambruoso - Comment: 20g LAC) ipratropium-albuteroL (Duoneb) 0.5 [...] Routine documented in this encounter Care Teams Cooker Sulfate Relationship Specialty Start Date End Date Deacon Watters APRN [address] [place] [address] [address] [facility] 1 [place] [address] PCP - General Family Medicine 02/17/22 documented as of this encounter
--- OUTSIDE RECORDS SUMMARY | 2024-07-27 21:05 | XMS_ITS | Encounter Summary ---
Author Organization [facility] Address [facility] [place] [address] Care Team Providers Care Aircraft Structural Fitter Name Role Phone Deacon Watters APRN Primary Care Provider +1- [phone] Encounter Details Date Type Department Care Team (Late st Contact Info) Description 06/29/2024 [place] [address] Social History Tobacco Use Types Packs/Day Years Used Date Smoking Tobacco: Former Cigarettes 4 30 1 12/01/1961 - 10/01/1992 Smokeless Tobacco: Former Chew Comments:Denies vaping Alcohol Use Standard Drinks/Week Comments Yes 0 (1 standard drink = 0.6 oz pur e alcohol) twice a year [facility] Utilities Answer Date Recorded In the past [...] the past 12 m [facility], were you homeless or living in a [facility] (including now)? No 07/01/2024 IPV Inpatient Questions [...] Vascular Unit Level 4 [place] [address] Faheem Joy MD [facility] [address] 08/15/2024 9:00 AM EDT Office [place] [address] Dion Barlow MD [facility] [place] [address] 09/01/2024 9:40 AM EDT Office Visit Cardiology at [address] [place] [address] Franky Shaver MD [facility] [address] 09/01/2024 11:20 AM EDT Office Visit Dermatology at [facility] [address] [place] [address] Gómez Mercer MD [facility] [address] [place] [place] [address] 09/21/2024 2:45 PM EDT Office Visit Pain and Spine Center at [facility] [place] [address] Trung Hoyos MD [facility] [place] [address] documented as of this encounter Procedures Procedure Name Priority Date/Time Associated Diagnosis Comments MISC EXTERNAL CARDIOLOGY RESULT Routine 06/29/2024 4:33 PM EDT documented in this encounter Results * External Cardiology Result (06/29/2024 4:33 PM EDT) Anatomical Region Laterality Modality Other Historical Provider EXTERNAL CARDIOLO GY RESULT documented in this encounter Visit Diagnoses Not on filedocumented in this encounter Care Teams Aircraft Structural Fitter Relationship Specialty Start Date End Date Deacon Watters APRN [address] [place] [address] PCP - General Family Medicine 02/17/22 documented as of this encounter
--- OUTSIDE RECORDS SUMMARY | 2024-07-27 21:06 | XMS_ITS | Encounter Summary ---
[place] [address] Care Team Providers Care Practice Performance Manager Name Role Phone Deacon Watters APRN Primary Care Provider +1- [phone] Encounter Details Date Type Department Care Team (Late st Contact Info) Description 11/10/2022 Telephone [place] [address] Dianna Shen, RN Social History Tobacco Use Types Packs/Day [...] Vascular Unit Level 4 [place] [address] Faheem Joy MD [facility] [place] [address] 08/15/2024 9:00 AM EDT Office Visit Gastroenterology at [place] [phone] Dion Barlow MD [facility] [place] [address] 09/01/2024 9:40 AM EDT Office Visit Cardiology at [address] [address] Franky Shaver MD [facility] [place] [address] 09/01/2024 11:20 AM EDT Office Visit Dermatology at [place] [address] [place] [address] Gómez Mercer MD [facility] [place] [address] 09/21/2024 2:45 PM EDT Office Visit [facility] at [place] [phone] Trung Hoyos MD [facility] [place] [address] documented as of this encounter Visit Diagnoses Not on filedocumented in this encounter Care Teams Practice Performance Manager Relationship Specialty Start Date End Date Deacon Watters APRN [address] [place] [address] [address] [facility] 1 [place] [address] PCP - General Family Medicine 02/17/22 documented as of this encounter
--- OUTSIDE RECORDS SUMMARY | 2024-07-27 21:06 | XMS_ITS | Encounter Summary ---
Author Organization [facility] Address [facility] [place] [address] Care Team Providers Care Addictions Counselor Name Role Phone Deacon Watters APRN Primary Care Provider +1- [phone] Reason for Visit * Consultation (Routine) - Closed Specialty Diagnoses / Procedures Referred By Perri t Referred To Contact Dermatology Diagnoses Basal cell carcinoma (BCC), unspecified site Becca Villegas APRN [address] [place] [address] [place] [address] Kingsley Finn MD [facility] DR EDDIE [place] [address] Referral ID Status Reason Start Date Expiration Date V isits Requested Visits Authorized [id number] Closed Consult, Test & Treat PCP Updated and/or Approved 01/04/2024 01/03/2025 1 1 Encounter Details Date Type Department Care Team (Late st Contact Info) Description 01/28/2024 2:00 PM EST Office Visit Dermatology at [facility] [address] [place] [address] Kingsley Finn MD [facility] DR [place] [address] Basal cell carcinoma of right [...] and follow up with his or her housekeeping staff or other skin provider. 5. Discussed avoiding [...] and signed by: Kingsley Finn Dermatology [facility] documented in this encounter Plan of Treatment Upcoming Encounters Date Type Department Care Team (Late st Contact Info) Description 07/29/2024 Hospital Encounter Heart and Vascular Unit Level [place] [address] Faheem Joy MD [facility] [place] [address] 08/15/2024 9:00 AM EDT Office [place] [address] Dion Barlow MD [facility] [place] [address] 09/01/2024 9:40 AM EDT Office Visit Cardiology at [address] [place] [address] Franky Shaver MD [facility] [place] [address] 09/01/2024 11:20 AM EDT Office Visit Dermatology at [facility] [address] [place] [address] Gómez Mercer MD [facility] DR EDD[place] [address] 09/21/2024 2:45 PM EDT Office Visit [facility] [place] [address] Trung Hoyos MD [facility] [address] Scheduled Referrals Name Type Priority Associated Diagnoses Orde r Schedule Referral to Dermatology Outpatient Referral Routine Basal cell carcinoma (BCC), unspecified site Ordered: 01/04/2024 documented as of this encounter Visit Diagnoses Diagnosis Basal cell carcinoma of right side of nose Basal cell carcinoma of skin of other and unspecified parts of face documented in this encounter Care Teams Addictions Counselor Relationship Specialty Start Date End Date Deacon Watters, SAMPLE PATTERNMAKER [address] [place] [address] [address] [facility] 1 [place] [address] PCP - General Family Medicine 02/17/22 documented as of this encounter
--- OUTSIDE RECORDS SUMMARY | 2024-07-27 21:06 | XMS_ITS | Encounter Summary ---
Author Organization [facility] Address [facility] [place] [address] Care Team Providers Care Marine Geologist Name Role Phone Duong Deacon Wells APRN Primary Care Provider +1- [phone] Reason for Visit * Reason Comments Basal Cell Carcinoma Encounter Details Date Type Department Care Team (Latest Contact Info) Description 02/17/2024 7:45 AM EDT Clinical Support Dermatology at [facility] [address] [place] [address] Kingsley Finn MD [facility] DR [place]GAN [place] [address] Basal cell carcinoma of right side of [...] Vascular Unit Level 4 [place] [address] Faheem Joy MD [facility] [place] [address] 08/15/2024 9:00 AM EDT Office [place] [address] Dion Barlow MD [facility] [place] [address] 09/01/2024 9:40 AM EDT Office Visit Cardiology at [address] [place] [address] Franky Shaver MD [facility] [place] [address] 09/01/2024 11:20 AM EDT Office Visit Dermatology at [facility] [address] [place] [address] Gómez Mercer MD [facility] DR EDDIE [place] [address] 09/21/2024 2:45 PM EDT Office Visit [facility] [place] [address] Trung Hoyos MD [facility] [place] [address] documented as of this encounter Visit Diagnoses Diagnosis Basal cell carcinoma of right side of nose Basal cell carcinoma of skin of other and unspecified parts of face documented in this encounter Care Teams Marine Geologist Relationship Specialty Start Date End Date Deacon Watters, JAZMINE [address] [facility] 1 [place] [address] PCP - General Family Medicine 02/17/22 documented as of this encounter
--- OUTSIDE RECORDS SUMMARY | 2024-07-27 21:06 | XMS_ITS | Encounter Summary ---
Author Organization [facility] [place] [address] Care Team Providers Care Ob Gyn Physician Assistant Name Role Phone Deacon Watters APRN Primary Care Provider +1- [phone] Encounter Details Date Type Department Care Team (Late st Contact Info) Description 11/20/2022 Telephone [place] [address] Jarret Roa RN Social History Tobacco Use [...] Vascular Unit Level 4 [place] [address] Faheem Joy MD [facility] [address] 08/15/2024 9:00 AM EDT Office [place] [address] Dion Barlow MD [facility] [place] [address] 09/01/2024 9:40 AM EDT Office Visit Cardiology at [address] [address] Franky Shaver MD [facility] [place] [address] 09/01/2024 11:20 AM EDT Office Visit Dermatology at [address] [address] Gómez Mercer MD [facility] DR [place] [address] 09/21/2024 2:45 PM EDT Office Visit [facility] [place] [address] Trung Hoyos MD [facility] [place] [address] documented as of this encounter Visit Diagnoses Not on filedocumented in this encounter Care Teams Ob Gyn Physician Assistant Relationship Specialty Start Date End Date Deacon Watters, SALESPERSON [employer] [address] [place], [place] [address] [place] [address] PCP - General Family Medicine 02/17/22 documented as of this encounter
--- OUTSIDE RECORDS SUMMARY | 2024-07-27 21:06 | XMS_ITS | Encounter Summary ---
Author Organization [facility] [place] [address] Care Team Providers Care Diversified Crops Farmer Name Role Phone Deacon Watters APRN Primary Care Provider +1- [phone] Encounter Details Date Type Department Care Team (Late st Contact Info) Description 06/09/2024 Telephone [place] [address] Marcelle Weinberg CHILD CARE GROUP LEADER [facility] [place] [address] Social History Tobacco Use Types Packs/Day Years [...] Vascular Unit Level 4 Wing A at [place] [phone] Faheem Joy MD [facility] [place] [place] [address] 08/15/2024 9:00 AM EDT Office Visit Gastroenterology at [place] [phone] Dion Barlow MD [facility] [place] [address] 09/01/2024 9:40 AM EDT Office Visit Cardiology at [address] [address] Franky Shaver MD [facility] [place] [address] 09/01/2024 11:20 AM EDT Office Visit Dermatology at [place] [address] [place] [address] Gómez Mercer MD [facility] [address] EDDIE [place] [address] 09/21/2024 2:45 PM EDT Office Visit [facility] Spine Center at [place] [phone] Trung Hoyos MD [facility] [place] [address] Scheduled Orders Name Type Priority Associated Diagnoses Orde r Schedule Calprotectin, Stool Lab Routine Left sided colitis without complications Expected: 08/01/2024 (Approximate), Expires: 06/09/2025 documented as of this encounter Visit Diagnoses Diagnosis Left sided colitis without complications Left sided ulcerative (chronic) colitis documented in this encounter Care Teams Diversified Crops Farmer Relationship Specialty Start Date End Date Deacon Watters, JAZMINE [address] [place] [address] [address] [facility] 1 [place] [address] PCP - General Family Medicine 02/17/22 documented as of this encounter
--- OUTSIDE RECORDS SUMMARY | 2024-07-27 21:06 | XMS_ITS | Encounter Summary ---
[place] [address] Care Team Providers Care Sales Program Coordinator Name Role Phone Duong Deacon Wells APRN Primary Care Provider +1- [phone] Encounter Details Date Type Department Care Team (Late st Contact Info) Description 02/12/2023 Telephone [place] [address] Kelly Castillo RN Social History Tobacco Use [...] local ER. He would likely go to [place] if this is the case. Will ask regular IBD team to f/u with him in the AM. documented in this encounter Plan of Treatment Upcoming Encounters Date Type Department Care Team (Late st Contact Info) Description 07/29/2024 Hospital Encounter Heart and Vascular Unit Level 4 [place] [address] Faheem Joy MD [facility] [place] [address] 08/15/2024 9:00 AM EDT Office Visit Gastroenterology at [place] [phone] Dion Barlow MD [facility] [place] [address] 09/01/2024 9:40 AM EDT Office Visit Cardiology at [address] [address] Franky Shaver MD [facility] [place] [address] 09/01/2024 11:20 AM EDT Office Visit Dermatology at [address] [address] Gómez Mercer MD [facility] DR [place] [address] 09/21/2024 2:45 PM EDT Office Visit [place] [address] Trung Hoyos MD [facility] [place] [address] documented as of this encounter Visit Diagnoses Not on filedocumented in this encounter Care Teams Sales Program Coordinator Relationship Specialty Start Date End Date Deacon Watters APRN [address] [facility] [facility] 1 [place] [address] PCP - General Family Medicine 02/17/22 documented as of this encounter
--- OUTSIDE RECORDS SUMMARY | 2024-07-27 21:06 | XMS_ITS | Encounter Summary ---
Author Organization [facility] Address [facility] [place] [address] Care Team Providers Care Visual Merchandising Director Name Role Phone DuongDeacon Priscilla LUCERO Primary Care Provider +1- [phone] Reason for Visit * Reason Comments Medication Refill Encounter Details Date Type Department Care Team (Late st Contact Info) Description 01/11/2024 [place]ill [place] [address] Dion Barlow MD [facility] GASTRO[place] [address] Social History Tobacco Use Types Packs/Day Years [...] Vascular Unit Level [place] [address] Faheem Joy MD [facility] [place] [address] 08/15/2024 9:00 AM EDT Office [place] [address] Dion Barlow MD [facility] GA[place] [address] 09/01/2024 9:40 AM EDT Office Visit Cardiology at [address] [place] [address] Franky Shaver MD [facility] [place] [address] 09/01/2024 11:20 AM EDT Office Visit Dermatology at [facility] [address] [place] [address] Gómez Mercer MD [facility] [address] 09/21/2024 2:45 PM EDT Office Visit [place] [address] Trung Hoyos MD [facility] PAIN [place] [address] documented as of this encounter Visit Diagnoses Not on filedocumented in this encounter Care Teams Visual Merchandising Director Relationship Specialty Start Date End Date Deacon Watters APRN [address] [place] [place] [address] [address] [facility] 1 [place] [address] PCP - General Family Medicine 02/17/22 documented as of this encounter
--- OUTSIDE RECORDS SUMMARY | 2024-07-27 21:06 | XMS_ITS | Encounter Summary ---
Author Organization [facility] Address [facility] [place] [address] Care Team Providers Care Paper Feeder Name Role Phone Deacon Watters Priscilla LUCERO Primary Care Provider +1- [phone] Reason for Visit * Reason Onset Date Comments Medication Refill 09/21/2023 Encounter Details Date Type Department Care Team (Late st Contact Info) Description 09/21/2023 Refill [place] [address] Dion Barlow MD [facility] [place] [address] Social History Tobacco Use Types Packs/Day Years [...] Vascular Unit Level 4 [place] [address] Faheem Joy MD [facility] [place] [address] 08/15/2024 9:00 AM EDT Office Visit [place] [address] Dion Barlow MD [facility] [place] [address] 09/01/2024 9:40 AM EDT Office Visit Cardiology at [address] [place] [address] Franky Shaver MD [facility] [place] [address] 09/01/2024 11:20 AM EDT Office Visit Dermatology at [place] [address] [place] [address] Gómez Mercer MD [facility] [place] [address] 09/21/2024 2:45 PM EDT Office Visit [facility] [place] [address] Trung Hoyos MD [facility] [place] [address] documented as of this encounter Visit Diagnoses Not on filedocumented in this encounter Care Teams Paper Feeder Relationship Specialty Start Date End Date Deacon Watters, ORE MIXER [address] [place] [address] PCP - General Family Medicine 02/17/22 documented as of this encounter
--- OUTSIDE RECORDS SUMMARY | 2024-07-27 21:06 | XMS_ITS | Encounter Summary ---
Author Organization [facility] Address [facility] [place] [address] Care Team Providers Care Dynamometer Tuner Name Role Phone Deacon Watters APRN Primary Care Provider +1- [phone] Encounter Details Date Type Department Care Team (Latest Contact Info) Description 06/06/2024 8:00 AM EDT Office [place] [address] Marcelle Weinberg RN DIABETES [facility] [place] [address] Left sided colitis without complications Social History [...] for cramping - Repeat routine labs today( [facility]) and submit stool calprotectin ( [facility]). - Follow up with Dermatology regarding [...] Overview Note: Colon[facility] 04[facility]08[facility] ascending colon. Several HPs and one TA. [place] 03/2022 - [place] 1 limited to rectosigmoid, diverticulosis. No dysplasia TREATMENT: cortenemas, Asacol, Rowasa, prednisone, and imodium [place] 12/2023- Ileum was normal. [place] 1 inflammation [...] - 199 mg/dL Final COLONOSCOPY 01/20/2024 Final Value:[facility] Endoscopy Procedure Date: 01/20/2024 10:01 AM Patient Name: Brian Rodriguez Date of : 1950 Age: 73 Order #: [id number] Instrument Name: [id number] Procedure: Colonoscopy Indications: Follow-up of left-sided chronic [...] by the physician, the nurse and the septic tank service technician in the pre-procedure area in [...] 10:01 AM Surgical Pathology Report 01/20/2024 Final Value:[id number] Location: 4T; EA12; A The signing pathologist [...] MD Verified: 01/29/2024 12:04 Pathologist Performed at: -[facility] Dept. of Pathology, [facility] [address], [place] [address] Mig Tig Welder: Joana Soler MD, [place], [place] Certificate: [id number] SPECIMEN(S) SUBMITTED A - right colon, biopsy [...] for cramping - Repeat routine labs today( [facility]) and submit stool calprotectin ( [facility]). - Follow up with Dermatology regarding skin rash on your groin. - Follow up with Dr. Barlow in 4 months Please contact me if there are any further questions regarding the care of this patient. Shan Weinberg APRN [facility] Section of Gastroenterology and Hepatology [address] [address] documented in this encounter Plan of Treatment Upcoming Encounters Date Type Department Care Team (Late st Contact Info) Description 07/29/2024 Hospital Encounter Heart and Vascular Unit Level 4 [place] [address] Faheem Joy MD [facility] [place] [address] 08/15/2024 9:00 AM EDT Office Visit [place] [address] Dion Barlwo MD [facility] [place] [address] 09/01/2024 9:40 AM EDT Office Visit Cardiology at [address] [place] [address] Franky Shaver MD [facility] [place] [address] 09/01/2024 11:20 AM EDT Office Visit Dermatology at [facility] [address] [place] [address] Gómez Mercer MD [facility] [place] [address] 09/21/2024 2:45 PM EDT Office Visit [facility] [place] [address] Trung Hoyos MD [facility] [place] [address] documented as of this encounter Procedures Procedure [...] PM EDT) C Diff Interp Negative Negative [facility] Comment: Ag/Tox Neg C. diff?? Negative Clostridium difficile is not present in the specimen. If patient is having diarrhea suspected to be from an infectious cause, then Soap & Water Contact Precautions are still required. Stool 06/06/2024 5:30 PM EDT 06/07/2024 1:32 PM EDT Narrative Resulting Agency Comment Spec In Lab Marcelle Weinberg RN DIABETES MICROBIOLOGY - GE NERAL ORDERABLES Performing Organization Address [facility] Co de Phone Number [facility] [place] [address] * (ABNORMAL) Calprotectin, Stool (06/06/2024 5:30 PM EDT) Pathologist [facility] Calprotectin, Stool 112(H) <=79 mcg/g [facility] Comment: Calprotectin Concentration ? Interpretation ? < 80 mcg/g ?Normal ? 80 ? 160 mcg/g ?Borderline ? >160 mcg/g ?Elevated Stool 06/06/2024 5:30 PM EDT 06/07/2024 1:07 PM EDT Narrative Resulting Agency Comment Spec In Lab Marcelle Weinberg RN DIABETES BODY FLUIDS AND S TOOLS ORDERABLES Performing Organization Address [facility] de Phone Number [facility] [place] [address] * Differential, Automated (06/06/2024 9:04 AM EDT) Pathologist [facility] Neutrophil % 70.3 % [facility] Neutrophil Absolute 4.36 1.70 - 6.10 x10(3)/[facility] Lymph % 19.7 % [facility] Lymphocytes Abs 1.2 0.9 - 3.2 x10(3)/[facility] Monocyte % 7.7 % [facility] Monocyte Abs 0.5 0.3 - 0.9 x10(3)/[facility] Eos % 1.3 % [facility] Eosinophils Abs 0.1 0.0 - 0.4 x10(3)/[facility] Basophil % 0.5 % [facility] Baso Absolute 0.0 0.0 - 0.1 x10(3)/[facility] Immature Gran % 0.50 % [facility] Comment: Immature granulocytes(IG's)percentage and absolute count will include metamyelocytes, myelocytes, and promyelocytes. Blood smears from CBCs yielding IG's will be scanned manually for concordance. If this scan disagrees with the automated IG or if promyelocytes are noted, a manual differential will be performed. Immature Gran Absolute 0.03 0.00 - 0.04 x10(3)/[facility] Blood 06/06/2024 9:04 AM EDT 06/06/2024 9:12 AM EDT Narrative Resulting Agency Comment Spec In Lab Marcelle Weinberg RN DIABETES HEMATOLOGY ORDERA BLES [facility] [place] [address] * (ABNORMAL) Hemogram (06/06/2024 9:04 AM EDT) Pathologist [facility] White Blood Cell 6.2 4.0 - 9.5 [...] RDW Standard Deviation 46.7(H) 36.0 - 45.0 [facility] RDW coefficient of variation 13.1 11.4 - 13.8 % [facility] Mean Platelet Volume 11.3 7.6 - 12.9 [facility] NRBC% auto 0.0 % [facility] NRBC Absolute 0.000 0.000 - 0.000 x10(3)/mc L [facility] Blood 06/06/2024 9:04 AM EDT 06/06/2024 9:12 AM EDT Narrative Resulting Agency Comment Spec In Lab Marcelle Weinberg RN DIABETES HEMATOLOGY ORDERA BLES Performing Organization Address City/State/[facility] Co de Phone Number [facility] [place] [address] * (ABNORMAL) CRP, acute inflammation (06/06/2024 9:04 AM EDT) C-Reactive Protein 6.4(H) <=4.9 mg/L [facility] Blood 06/06/2024 9:04 AM EDT 06/06/2024 9:12 AM EDT Narrative Resulting Agency Comment Spec In Lab Marcelle Weinberg RN DIABETES CHEMISTRY ORDERAB LES Performing Organization Address [facility]/ZIP Co de Phone Number [facility] [place] [address] * Sedimentation rate (06/06/2024 9:04 AM EDT) [...] BLES Performing Organization Address [facility] Co de Phone Number [facility] [place] [address] * Comprehensive metabolic panel (non-fasting) (06/06/2024 9:04 [...] APRN CHEMISTRY ORDERAB LES Performing Organization Address City/State/[facility] Co de Phone Number [facility] [place] [address] documented in this encounter Visit Diagnoses Diagnosis Left sided colitis without complications Left sided ulcerative (chronic) colitis documented in this encounter Care Teams Dynamometer Tuner Relationship Specialty Start Date End Date Deacon Watters APRN [address] [place] [address] PCP - General Family Medicine 02/17/22 documented as of this encounter
--- OUTSIDE RECORDS SUMMARY | 2024-07-27 21:06 | XMS_ITS | Encounter Summary ---
Author Organization [facility] [place] [address] Care Team Providers Care Laboratory Chemical Assistant Name Role Phone Deacon Watters APRN Primary Care Provider +1- [phone] Encounter Details Date Type Department Care Team (Late st Contact Info) Description 10/27/2023 Ancillary Procedure [place] [address] Deacon Watters APRN [address] [place], [place] [address] Social History Tobacco Use Types Packs/Day Years [...] Vascular Unit Level 4 [place] [address] Faheem Joy MD [facility] [place] [address] 08/15/2024 9:00 AM EDT Office [place] [address] Dion Barlow MD [facility] [place] [address] 09/01/2024 9:40 AM EDT Office Visit Cardiology at [address] [address] Franky Shaver MD [facility] [place] [address] 09/01/2024 11:20 AM EDT Office Visit Dermatology at [facility] [address] [place] [address] Gómez Mercer MD [facility] [place] [address] 09/21/2024 2:45 PM EDT Office Visit [facility] [place] [address] Trung Hoyos MD [facility] [place] [address] documented as of this encounter Procedures Procedure Name Priority Date/Time Associated Diagnosis Comments FILM LIBRARY STORAGE ONLY MR SPINE Routine 10/27/2023 12:00 AM EST documented in this encounter Results * Film Library- Storage Only MR Spine (10/27/2023 12:00 AM EST) Narrative [facility] - 11/11/2023 10:39 AM EST This exam is auto-finalizing. It's purpose is for storage only. Deacon Watters APRN IMG FILM LIBRARY O RDERABLES [place], [place] documented in this encounter Visit Diagnoses Not on filedocumented in this encounter Care Teams Laboratory Chemical Assistant Relationship Specialty Start Date End Date Deacon Watters, JAZMINE [address] [place] [address] PCP - General Family Medicine 02/17/22 documented as of this encounter
--- OUTSIDE RECORDS SUMMARY | 2024-07-27 21:06 | XMS_ITS | Encounter Summary ---
[place] [address] Care Team Providers Care Wildlife Veterinarian Name Role Phone Deacon Watters APRN Primary Care Provider +1- [phone] Reason for Referral * Consultation (Routine) - Closed Specialty Diagnoses / Procedures Referred By Contwillard t Referred To Contact Pain and Spine Center Diagnoses Cervicalgia Other chronic pain chronic neck pain/MRI 10/27/23 @ [facility] Deacon Watters APRN [address] [place] [address] [facility] [place] [address] Referral ID Status Reason Start Date Expiration Date V isits Requested Visits Authorized [id number] Closed Consult, Test & Treat PCP Updated and/or Approved 11/11/2023 05/10/2024 1 1 Encounter Details Date Type Department Care Team (Late st Contact Info) Description 11/18/2023 Transcribe Orders eD Incoming Referrals [phone] Deacon Watters APRN [address] [place], [place] [address] Cervicalgia; Other chronic pain Social History Tobacco [...] Vascular Unit Level [place] [address] Faheem Joy MD [facility] [address] 08/15/2024 9:00 AM EDT Office [place] [address] Dion Barlow MD [facility] [place] [address] 09/01/2024 9:40 AM EDT Office Visit Cardiology at [address] [address] Franky Shaver MD [facility] [address] 09/01/2024 11:20 AM EDT Office Visit Dermatology at [address] [address] Gómez Mercer MD [facility] DR EDDIE [place] [address] 09/21/2024 2:45 PM EDT Office Visit Pain and Spine Center at [address] Trung Hoyos MD [facility] [place] [address] Scheduled Referrals Name Type Priority Associated Diagnoses Orde r Schedule Referral to Spine Center Outpatient Referral Routine Cervicalgia Other chronic pain Ordered: 11/18/2023 documented as of this encounter Visit Diagnoses Diagnosis Cervicalgia Other chronic pain documented in this encounter Care Teams Wildlife Veterinarian Relationship Specialty Start Date End Date Deacon Watters, JAZMINE [address] [place] [address] PCP - General Family Medicine 02/17/22 documented as of this encounter
--- OUTSIDE RECORDS SUMMARY | 2024-07-27 21:06 | XMS_ITS | Encounter Summary ---
[place] [address] Care Team Providers Care Hiv Counselor Name Role Phone Deacon Watters APRN Primary Care Provider +1- [phone] Encounter Details Date Type Department Care Team (Late st Contact Info) Description 12/07/2023 Telephone [place] [address] Estela Phillips Social History Tobacco Use Types [...] - 12/07/2023 10:47 AM EST Brian Rodriguez [id number] Diagnosis/Indication: UC surveillance Please review patient chart [...] your procedure. Who will likely be your yard truck driver for the procedure? *Please Verify [...] Vascular Unit Level [place] [address] Faheem Joy MD [facility] [place] [address] 08/15/2024 9:00 AM EDT Office Visit [place] [address] Dion Barlow MD [facility] [place] [address] 09/01/2024 9:40 AM EDT Office Visit Cardiology at [address] [address] Franky Shaver MD [facility] [place] [address] 09/01/2024 11:20 AM EDT Office Visit Dermatology at [facility] [address] [place] [address] Gómez Mercer MD [facility] DR EDDIE [place] [address] 09/21/2024 2:45 PM EDT Office Visit [facility] [place] [address] Trung Hoyos MD [facility] [place] [address] documented as of this encounter Visit Diagnoses Not on filedocumented in this encounter Care Teams Hiv Counselor Relationship Specialty Start Date End Date Deacon Watters APRN [address] [place] [address] [address] [place] [address] PCP - General Family Medicine 02/17/22 documented as of this encounter
--- OUTSIDE RECORDS SUMMARY | 2024-07-27 21:06 | XMS_ITS | Encounter Summary ---
Author Organization [facility] Address [facility] [place] [address] Care Team Providers Care Rn Night Name Role Phone DuongDeacon Priscilla LUCERO Primary Care Provider +1- [phone] Encounter Details Date Type Department Care Team [...] Vascular Unit Level [place] [address] Faheem Joy MD [facility] [place] [address] 08/15/2024 9:00 AM EDT Office [place] [address] Dion Barlow MD [facility] [place] [address] 09/01/2024 9:40 AM EDT Office Visit Cardiology at [address] [place] [address] Franky Shaver MD [facility] [place] [address] 09/01/2024 11:20 AM EDT Office Visit Dermatology at [facility] [address] [place] [address] Gómez Mercer MD [facility] [place] [address] 09/21/2024 2:45 PM EDT Office Visit [place] [address] Trung Hoyos MD [facility] [place] [address] documented as of this encounter Visit Diagnoses Not on filedocumented in this encounter Care Teams Rn Night Relationship Specialty Start Date End Date Deacon Watters, RECEIVER SETTER [address] [facility] 1 [place] [address] PCP - General Family Medicine 02/17/22 documented as of this encounter
--- OUTSIDE RECORDS SUMMARY | 2024-07-27 21:06 | XMS_ITS | Encounter Summary ---
Author Organization [facility] Address [facility] [place] [address] Care Team Providers Care Investigations Consultant Name Role Phone Deacon Watters Priscilla LUCERO Primary Care Provider +1- [phone] Reason for Visit * Reason Comments Medication Refill Encounter Details Date Type Department Care Team (Late st Contact Info) Description 02/19/2024 Refill [place] [address] Dion Barlow MD [facility] [place] [address] Social History Tobacco Use Types Packs/Day Years [...] Vascular Unit Level 4 [place] [address] Faheem Joy MD [facility] [place] [address] 08/15/2024 9:00 AM EDT Office [place] [address] Dion Barlow MD [facility] [place] [address] 09/01/2024 9:40 AM EDT Office Visit Cardiology at [address] [place] [address] Franky Shaver MD [facility] [place] [address] 09/01/2024 11:20 AM EDT Office Visit Dermatology at [place] [address] [place] [address] Gómez Mercer MD [facility] [address] 09/21/2024 2:45 PM EDT Office Visit [place] [address] Trung Hoyos MD [facility] [place] [address] documented as of this encounter Visit Diagnoses Not on filedocumented in this encounter Care Teams Investigations Consultant Relationship Specialty Start Date End Date Deacon Watters, JAZMINE [address] [place] [address] PCP - General Family Medicine 02/17/22 documented as of this encounter
--- OUTSIDE RECORDS SUMMARY | 2024-07-27 21:06 | XMS_ITS | Encounter Summary ---
[place] [address] Care Team Providers Care Endo Tech Name Role Phone Deacon Watters APRN Primary Care Provider +1- [phone] Encounter Details Date Type Department Care Team (Latest Contact Info) Description 06/06/2024 12:56 PM EDT - 06/06/2024 11:59 PM EDT [place] [address] Left sided colitis without complications Discharge Disposition: [...] Vascular Unit Level 4 [place] [address] Faheem Joy MD [facility] [place] [address] 08/15/2024 9:00 AM EDT Office Visit [place] [address] Dion Barlow MD [facility] [place] [address] 09/01/2024 9:40 AM EDT Office Visit Cardiology at [address] [phone] Franky Shaver MD [facility] [place] [address] 09/01/2024 11:20 AM EDT Office Visit Dermatology at [address] [address] Gómez Mercer MD [facility] DR [place] [address] 09/21/2024 2:45 PM EDT Office Visit [facility] [place] [address] Trung Hoyos MD [facility] [place] [address] documented as of this encounter Procedures Procedure Name Priority Date/Time Associated Diagnosis Comments HC C. DIFF QUIK CHEK ANTIGEN Routine 06/06/2024 5:30 PM EDT Left sided colitis without complications CALPROTECTIN,STOOL Routine 06/06/2024 5: 30 PM EDT Left sided colitis without complications documented in this encounter Results * (ABNORMAL) Calprotectin, Stool (06/06/2024 5:30 PM EDT) Calprotectin, Stool 112(H) <=79 mcg/g [facility] Comment: Calprotectin Concentration ? Interpretation ? < 80 mcg/g ?Normal ? 80 ? 160 mcg/g ?Borderline ? >160 mcg/g ?Elevated Stool 06/06/2024 5:30 PM EDT 06/07/2024 1:07 PM EDT Narrative Resulting Agency Comment Spec In Lab Marcelle Weinberg APRN BODY FLUIDS AND S TOOLS ORDERABLES Performing Organization Address [facility] de Phone Number [facility] [place] [address] * C. Difficile Screen (06/06/2024 5:30 PM EDT) C Diff Interp Negative Negative [facility] Comment: Ag/Tox Neg C. diff?? Negative Clostridium difficile is not present in the specimen. If patient is having diarrhea suspected to be from an infectious cause, then Soap & Water Contact Precautions are still required. Stool 06/06/2024 5:30 PM EDT 06/07/2024 1:32 PM EDT Narrative Resulting Agency Comment Spec In Lab Marcelle Weinberg PROJECT ESTIMATOR MICROBIOLOGY - GE NERAL ORDERABLES Performing Organization Address [facility] Co de Phone Number [facility] [place] [address] documented in this encounter Visit Diagnoses Diagnosis Left sided colitis without complications Left sided ulcerative (chronic) colitis documented in this encounter Care Teams Endo Tech Relationship Specialty Start Date End Date Deacon Watters APRN [address] [place] [address] PCP - General Family Medicine 02/17/22 documented as of this encounter
--- OUTSIDE RECORDS SUMMARY | 2024-07-27 21:06 | XMS_ITS | Encounter Summary ---
Author Organization [facility] Address [facility] [place] [address] Care Team Providers Care Dispensing Lead Name Role Phone DuongDeacon Priscilla LUCERO Primary Care Provider +1- [phone] Encounter Details Date Type Department Care Team [...] Vascular Unit Level [place] [address] Faheem Joy MD [facility] [place] [address] 08/15/2024 9:00 AM EDT Office [place] [address] Dion Barlow MD [facility] [place] [address] 09/01/2024 9:40 AM EDT Office Visit Cardiology at [address] [place] [address] Franky Shaver MD [facility] [place] [address] 09/01/2024 11:20 AM EDT Office Visit Dermatology at [facility] [address] [place] [address] Gómez Mercer MD [facility] [place] [address] 09/21/2024 2:45 PM EDT Office Visit [facility] [place] [address] Trung Hoyos MD [facility] [place] [address] documented as of this encounter Visit Diagnoses Not on filedocumented in this encounter Care Teams Dispensing Lead Relationship Specialty Start Date End Date Deacon Watters, FLEET DISPATCH MANAGER [address] [facility] 1 [place] [address] PCP - General Family Medicine 02/17/22 documented as of this encounter
--- OUTSIDE RECORDS SUMMARY | 2024-07-27 21:06 | XMS_ITS | Encounter Summary ---
Author Organization [facility] Address [facility] [place] [address] Care Team Providers Care Director Data Processing Name Role Phone Duong Deacon Wells APRN Primary Care Provider +1- [phone] Encounter Details Date Type Department Care Team (Late st Contact Info) Description 01/20/2024 10:15 AM EST - 01/20/2024 11:00 AM EST Surgery [place] [address] Anthony Hamlin MD [facility] [place] [address] COLONOSCOPY FLEXIBLE, WITH BX (WRVU 3.56) Social [...] occurs, please contact your Doctor. Please call [phone] before 8pm Mon-Fri with problems, questions or concerns. If you call after 8pm or on weekends, call the Hospital at [phone] and ask to speak to the Reverse Logistics Analyst vp information technology and the shellfish meat separator operator will contact that person for you. When should you call for help? Call [phone] anytime you think you may need emergency [...] problems. Where can you learn more? [facility] View your After Visit Summary and more online at [email or web address] If you would like to provide [...] cost to you. Content Version: 12.2 ?? 1789-1603 [employer]. Care instructions adapted under license by [facility]. If you have questions about a medical condition or this instruction, always ask your healthcare professional. [employer] disclaims any warranty or liability for your [...] Vascular Unit Level 4 Wing A at [place] [phone] Faheem Joy MD [facility] [place] [address] 08/15/2024 9:00 AM EDT Office Visit Gastroenterology at [place] [phone] Dion Barlow MD [facility] [place] [address] 09/01/2024 9:40 AM EDT Office Visit Cardiology at [address] [address] Franky Shaver MD [facility] [place] [address] 09/01/2024 11:20 AM EDT Office Visit Dermatology at [address] [address] Gómez Mercer MD [facility] DR [place] [address] 09/21/2024 2:45 PM EDT Office Visit Pain and Spine Center at [place] [phone] Trung Hoyos MD [facility] [place] [address] documented as of this encounter Procedures Procedure [...] Routine 01/20/2024 10:24 AM EST Colonoscopy, Biopsy ([id number]) 01/20/2024 10:09 AM EST Left sided colitis without complications POCT GLUCOSE Routine 01/20/2024 10:05 AM EST POCT FINGERSTICK GLUCOSE Routine 01/20/2024 10:05 AM EST COLONOSCOPY Routine 01/20/2024 10:01 AM EST documented in this encounter Results * Specimen to Pathology (01/20/2024 10:48 AM EST) AP Specimen 01/20/2024 10:4 8 AM EST 01/20/2024 10:48 AM EST Narrative [facility] - 01/20/2024 10:48 AM EST Specimen requisition ordered. ??Separate Pathology report to follow Anthony Hamlin MD PATHOLOGY/CYTOLOGY O CEE Performing Organization Address City/State/[facility] Co de Phone Number [facility] [place] [address] * Specimen to Pathology (01/20/2024 10:48 AM EST) AP Specimen 01/20/2024 10:4 8 AM EST 01/20/2024 10:48 AM EST Narrative [facility] - 01/20/2024 10:48 AM EST Specimen requisition ordered. ??Separate Pathology report to follow Anthony Hamlin MD PATHOLOGY/CYTOLOGY O CEE Performing Organization Address [facility] Co de Phone Number [facility] [place] [address] * Specimen to Pathology (01/20/2024 10:48 AM EST) AP Specimen 01/20/2024 10:4 8 AM EST 01/20/2024 10:48 AM EST Narrative [facility] - 01/20/2024 10:48 AM EST Specimen requisition ordered. ??Separate Pathology report to follow Anthony Hamlin MD PATHOLOGY/CYTOLOGY O CEE Performing Organization Address [facility] Co de Phone Number [facility] [place] [address] * Specimen to Pathology (01/20/2024 10:48 AM EST) AP Specimen 01/20/2024 10:4 8 AM EST 01/20/2024 10:48 AM EST Narrative [facility] - 01/20/2024 10:48 AM EST Specimen requisition ordered. ??Separate Pathology report to follow Anthony Hamlin MD PATHOLOGY/CYTOLOGY O CEE Performing Organization Address [facility] Co de Phone Number [facility] [place] [address] * Specimen to Pathology (01/20/2024 10:48 AM EST) AP Specimen 01/20/2024 10:4 8 AM EST 01/20/2024 10:48 AM EST Narrative [facility] - 01/20/2024 10:48 AM EST Specimen requisition ordered. ??Separate Pathology report to follow Anthony Hamlin MD PATHOLOGY/CYTOLOGY O CEE Performing Organization Address [facility] Co de Phone Number [facility] [place] [address] * Specimen to Pathology (01/20/2024 10:48 AM EST) AP Specimen 01/20/2024 10:4 8 AM EST 01/20/2024 10:48 AM EST Narrative [facility] - 01/20/2024 10:48 AM EST Specimen requisition ordered. ??Separate Pathology report to follow Anthony Hamlin MD PATHOLOGY/CYTOLOGY O CEE [facility] [place] [id number] * Surgical Pathology Report (01/20/2024 10:24 AM EST) Final Diagnosis [id number] ? Location: 4T; EA12; A The signing [...] Dilip Verified: ??01/29/2024 12:04 ??Pathologist Performed at: ??-[facility] Dept. of [place]ology, [place] [address] Apprentice Machinist Outside: Joana Soler MD, FCAP, ??CLIA Certificate: [id number] SPECIMEN(S) SUBMITTED A - right colon, biopsy [...] MD PATHOLOGY/CYTOLOGY O CEE Performing Organization Address City/[facility]/ZIP Co de Phone Number [facility] [place] [phone] [place] [address] [place] [address] * POCT Glucose (01/20/2024 10:05 AM EST) Glucose, POC 114 65 - 199 mg/dL [facility] Comment: Supplemental ranges: <140 mg/dL before meals <180 mg/dL all other times of the day Blood 01/20/2024 10:0 5 AM EST 01/20/2024 10:05 AM EST Anthony Hamlin MD POINT OF CARE TEST O CEE Performing Organization Address City/[facility]/ZIP Co de Phone Number [facility] [address] * POCT Fingerstick Glucose (01/20/2024 10:05 AM EST) Glucose, POC 114 60 - 199 mg/dl 01/20/2024 10:0 5 AM EST Anthony Hamlin MD POINT OF CARE TEST O CEE * COLONOSCOPY (01/20/2024 10:01 AM EST) COLONOSCOPY [facility] Endoscopy Procedure Date: 01/20/2024 10:01 AM ? Patient Name: Brian Rodriguez ? Date of : 1950 ? Age: 73 ? Order #: [id number] ? Instrument Name: [id number] ? Procedure: ? Colonoscopy Indications: ? Follow-up [...] the nurse and the ? pest control chemical technician in the pre-procedure ? area in [...] 1122, Endoscopy (Day of Procedure) 1008 ([facility] ider: Mily Swartz RN) PRN Medication Order [...] Doyle RN)1013 (Given - Provider: Danyell Doyle, RONY)1016 (Given - Provider: Danyell Doyle, RONY)1029 (Given - Provider: Danyell Doyle RN) documented in this encounter Care Teams Director Data Processing Relationship Specialty Start Date End Date Deacon Watters APRN [address] [place] [address] [address] [place] [address] PCP - General Family Medicine 02/17/22 documented as of this encounter
--- OUTSIDE RECORDS SUMMARY | 2024-07-27 21:06 | XMS_ITS | Encounter Summary ---
[place] [address] Care Team Providers Care Conservation Of Resources Commissioner Name Role Phone Deacon Watters APRN Primary Care Provider +1- [phone] Encounter Details Date Type Department Care Team (Latest Contact Info) Description 06/07/2024 12:55 PM EDT - 06/07/2024 11:59 PM EDT Hospital [place] [address] Left sided colitis without complications Discharge Disposition: [...] Vascular Unit Level 4 Wing A at [place] [phone] Faheem Joy MD [facility] [place] [address] 08/15/2024 9:00 AM EDT Office Visit Gastroenterology at [place] [phone] Dion Barlow MD [facility] [place] [address] 09/01/2024 9:40 AM EDT Office Visit Cardiology at [address] [address] Franky Shaver MD [facility] [place] [address] 09/01/2024 11:20 AM EDT Office Visit Dermatology at [address] [phone] Gómez Mercer MD [facility] DR EDDIE [place] [address] 09/21/2024 2:45 PM EDT Office Visit Pain and Spine Center at [place] [phone] Trung Hoyos MD [facility] [place] [address] documented as of this encounter Procedures Procedure [...] Agency Comment Spec In Lab Marcelle Weinberg MACADAM RAKER MICROBIOLOGY - GE NERAL ORDERABLES Performing Organization Address City/[facility]/ZIP Co de Phone Number [facility] [place] [address] * Campylobacter Antigen (06/07/2024 9:00 AM EDT) Campylobacter Ag Immunoassay Negative for Campylobacter Antigen [facility] Stool 06/07/2024 9:00 AM EDT 06/07/2024 1:32 PM EDT Narrative Resulting Agency Comment Spec In Lab Marcelle Weinberg MACADAM RAKER MICROBIOLOGY - GE NERAL ORDERABLES Performing Organization Address City/[facility]/ZIP Co de Phone Number [facility] [place] [address] * Stool culture (06/07/2024 9:00 AM EDT) Stool Culture No enteric pathogens isolated [facility] Stool 06/07/2024 9:00 AM EDT 06/07/2024 1:32 PM EDT Narrative Resulting Agency Comment Spec In Lab Marcelle Weinberg APRN MICROBIOLOGY - GE NERAL ORDERABLES Performing Organization Address City/State/[facility] Co de Phone Number [facility] [address] documented in this encounter Visit Diagnoses Diagnosis Left sided colitis without complications Left sided ulcerative (chronic) colitis documented in this encounter Additional Health Concerns Infection Onset Date Last Indicated Resolved Time Rule Out C. difficile 06/07/2024 06/06/20242023 2:27 PM EDT documented as of this encounter Care Teams Conservation Of Resources Commissioner Relationship Specialty Start Date End Date Deacon Watters APRN [address] [place] [address] PCP - General Family Medicine 02/17/22 documented as of this encounter
--- OUTSIDE RECORDS SUMMARY | 2024-07-27 21:06 | XMS_ITS | Encounter Summary ---
Author Organization [facility] Address [facility] [place] [address] Care Team Providers Care Strategic Planning Consultant Name Role Phone Duong Deacon Wells APRN Primary Care Provider +1- [phone] Reason for Visit * Reason Comments Rash Encounter Details Date Type Department Care Team (Late st Contact Info) Description 06/07/2024 1:20 PM EDT Office Visit Dermatology at [facility] [address] [place] [address] [facility] [place] [address] Tinea cruris Social History Tobacco Use Types [...] weeks for Tinea Cruris []Note routed to personal secretary []Recall placed in scheduling system [x]Appointment scheduled at checkout Scribe attestation: Danyell Anton [facility] has performed the documentation for this encounter inthe presence of and acting as a scribe for Gómez Mercer MD. I performed the above scribed service and agree with the accuracy of the documentation in this encounter. Reviewed and signed by: Gómez Mercer MD Dermatology [facility] Patient seen and evaluated with staff pass worker: Maria G Padilla MD [facility] [...] as documented. Maria G Padilla MD Staff Campaign Analyst Department of Dermatology [facility] documented in this encounter Plan of Treatment Upcoming Encounters Date Type Department Care Team (Late st Contact Info) Description 07/29/2024 Hospital Encounter Heart and Vascular Unit Level [place] [address] [facility] [place] [address] 08/15/2024 9:00 AM EDT Office [place] [address] [facility] [place] [address] 09/01/2024 9:40 AM EDT Office Visit Cardiology at [address] [phone] Franky Shaver MD [facility] [place] [address] 09/01/2024 11:20 AM EDT Office Visit Dermatology at [facility] [address] [place] [address] [facility] DR EDDIE [place] [address] 09/21/2024 2:45 PM EDT Office Visit Pain and Spine Center at [facility] [place] [phone] Trung Hoyos MD [facility] [place] [address] documented as of this encounter Visit Diagnoses Diagnosis Tinea cruris Dermatophytosis of groin and perianal area documented in this encounter Additional Health Concerns Infection Onset Date Last Indicated Resolved Time Rule Out C. difficile 06/07/2024 06/06/20242023 2:27 PM EDT documented as of this encounter Care Teams Strategic Planning Consultant Relationship Specialty Start Date End Date Deacon Watters, ENVIRONMENTAL CONFLICT MANAGER [address] [place] [address] PCP - General Family Medicine 02/17/22 documented as of this encounter
--- OUTSIDE RECORDS SUMMARY | 2024-07-27 21:06 | XMS_ITS | Encounter Summary ---
Author Organization [facility] [place] [address] Care Team Providers Care Crtt Name Role Phone Deacon Watters APRN Primary Care Provider +1- [phone] Encounter Details Date Type Department Care Team (Late st Contact Info) Description 06/06/2024 Telephone [place] [phone] Marcelle Weinberg AIR EXPORT AGENT [facility] [place] [address] Social History Tobacco Use Types Packs/Day Years [...] Vascular Unit Level [place] [address] Faheem Joy MD [facility] [place] [address] 08/15/2024 9:00 AM EDT Office Visit Gastroenterology at [place] [phone] Dion Barlow MD [facility] [place] [address] 09/01/2024 9:40 AM EDT Office Visit Cardiology at [address] [address] Franky Shaver MD [facility] [place] [address] 09/01/2024 11:20 AM EDT Office Visit Dermatology at [place] [address] [place] [address] Gómez Mercer MD [facility] DR [place] [address] 09/21/2024 2:45 PM EDT Office Visit Pain [place] [address] Trung Hoyos MD [facility] [place] [address] documented as of this encounter Visit Diagnoses Not on filedocumented in this encounter Care Teams Crtt Relationship Specialty Start Date End Date Deacon Watters APRN [address] [place] [address] PCP - General Family Medicine 02/17/22 documented as of this encounter
--- OUTSIDE RECORDS SUMMARY | 2024-07-27 21:06 | XMS_ITS | Encounter Summary ---
Author Organization [facility] [place] [address] Care Team Providers Care Shear Operator Name Role Phone Deacon Watters APRN Primary Care Provider +1- [phone] Reason for Referral * Consultation (Routine) - Closed Specialty Diagnoses / Procedures Referred By Contac t Referred To Contact Pain and Spine Center Diagnoses Spondylosis of cervical region without myelopathy or radiculopathy Santiago Morales PA [facility] [place] [address] [facility] [place] [address] Referral ID Status Reason Start Date Expiration Date V isits Requested Visits Authorized [id number] Closed Pain Consult 04/06/2024 04/06/2025 1 1 Reason for Visit * Reason Comments Follow-up Pain Back of neck- right side of neck is worse Encounter Details Date Type Department Care Team (Latest Contact Info) Description 04/06/2024 8:30 AM EDT Office Visit [place] [phone] Santiago Morales PA [facility] [place] [address] Spondylosis of cervical region without [...] the [facility] @ [facility] for evaluation. Chief Complaint: Neck pain. [...] strength though with slight weakness with left community health consultant compared to thatof the right. Imaging: No [...] Vascular Unit Level 4 [place] [phone] Faheem Joy MD [facility] [place] [address] 08/15/2024 9:00 AM EDT Office [place] [phone] Dion Barlow MD [facility] [place] [address] 09/01/2024 9:40 AM EDT Office Visit Cardiology at [address] [place] [address] Franky Shaver MD [facility] [place] [address] 09/01/2024 11:20 AM EDT Office Visit Dermatology at [address] [place] [address] Gómez Mercer MD [facility] DR [place] [address] 09/21/2024 2:45 PM EDT Office Visit [place] [address] Trung Hoyos MD [facility] [place] [address] Scheduled Referrals Name Type Priority Associated Diagnoses Orde r Schedule Referral to Pain and Spine Center (Internal only) Outpatient Referral Routine Spondylosis of cervical region without myelopathy or radiculopathy Ordered: 04/06/2024 documented as of this encounter Visit Diagnoses Diagnosis Spondylosis of cervical region without myelopathy or radiculopathy Cervical spondylosis without myelopathy documented in this encounter Care Teams Shear Operator Relationship Specialty Start Date End Date Deacon Watters, RAILROAD INSPECTOR [address] [place] [address] PCP - General Family Medicine 02/17/22 documented as of this encounter
--- OUTSIDE RECORDS SUMMARY | 2024-07-27 21:06 | XMS_ITS | Encounter Summary ---
Author Organization [facility] Address [facility] [place] [address] Care Team Providers Care Model And Dye Person Name Role Phone DuongDeacon Priscilla LUCERO Primary Care Provider +1- [phone] Encounter Details Date Type Department Care Team [...] Vascular Unit Level [place] [address] Faheem Joy MD [facility] [place] [address] 08/15/2024 9:00 AM EDT Office Visit [place] [address] Dion Barlow MD [facility] [place] [address] 09/01/2024 9:40 AM EDT Office Visit Cardiology at [address] [place] [address] Franky Shaver MD [facility] [place] [address] 09/01/2024 11:20 AM EDT Office Visit Dermatology at [facility] [address] [place] [address] Gómez Mercer MD [facility] [address] 09/21/2024 2:45 PM EDT Office Visit [facility] [place] [address] Trung Hoyos MD [facility] [place] [address] documented as of this encounter Visit Diagnoses Not on filedocumented in this encounter Care Teams Model And Dye Person Relationship Specialty Start Date End Date Deacon Watters, AIRBRUSH ARTIST [address] [facility] 1 [place] [address] PCP - General Family Medicine 02/17/22 documented as of this encounter
--- OUTSIDE RECORDS SUMMARY | 2024-07-27 21:06 | XMS_ITS | Encounter Summary ---
Author Organization [facility] Address [facility] [place] [address] Care Team Providers Care Extractor Loader And Unloader Name Role Phone Deacon Watters APRN Primary Care Provider +1- [phone] Reason for Referral * Consultation (Routine) - Closed Specialty Diagnoses / Procedures Referred By Perri t Referred To Contact Dermatology Diagnoses Basal cell carcinoma (BCC), unspecified site Becca Villegas APRN [address] [place] [address] [place] [address] Kingsley Finn MD [facility] DR EDD[place] [address] Referral ID Status Reason Start Date Expiration Date V isits Requested Visits Authorized [id number] Closed Consult, Test & Treat PCP Updated and/or Approved 01/04/2024 01/03/2025 1 1 Encounter Details Date Type Department Care Team (Late st Contact Info) Description 01/04/2024 Transcribe Orders eDH Incoming Referrals [phone] Becca Vil[address]as [address] [place], [place] [id number] Basal cell carcinoma (BCC), unspecified site (Primary [...] Vascular Unit Level 4 [place] [address] Faheem Joy MD [facility] [place] [address] 08/15/2024 9:00 AM EDT Office Visit Gastroenterology at [place] [phone] Dion Barlow MD [facility] [place] [address] 09/01/2024 9:40 AM EDT Office Visit Cardiology at [address] [address] Franky Shaver MD [facility] [place] [address] 09/01/2024 11:20 AM EDT Office Visit Dermatology at [place] [address] [place] [address] Gómez Mercer MD [facility] DR EDD[place] [address] 09/21/2024 2:45 PM EDT Office Visit Pain and Spine Center at [place] [phone] Trung Hoyos MD [facility] [place] [address] Scheduled Referrals Name Type Priority Associated Diagnoses Orde r Schedule Referral to Dermatology Outpatient Referral Routine Basal cell carcinoma (BCC), unspecified site Ordered: 01/04/2024 documented as of this encounter Visit Diagnoses Diagnosis Basal cell carcinoma (BCC), unspecified site- Primary documented in this encounter Care Teams Extractor Loader And Unloader Relationship Specialty Start Date End Date Deacon Watters, MANAGER ACTIVITIES [address] [place] [address] PCP - General Family Medicine 02/17/22 documented as of this encounter
--- OUTSIDE RECORDS SUMMARY | 2024-07-27 21:06 | XMS_ITS | Encounter Summary ---
Author Organization [facility] Address [facility] [place] [address] Care Team Providers Care Pick Pulling Machine Operator Name Role Phone DuongDeacon Priscilla LUCERO Primary Care Provider +1- [phone] Encounter Details Date Type Department Care Team [...] Vascular Unit Level 4 [place] [address] Faheem Joy MD [facility] [place] [address] 08/15/2024 9:00 AM EDT Office [place] [address] Dion Barlow MD [facility] [address] 09/01/2024 9:40 AM EDT Office Visit Cardiology at [address] [place] [address] Franky Shaver MD [facility] [place] [address] 09/01/2024 11:20 AM EDT Office Visit Dermatology at [facility] [address] [place] [address] Gómez Mercer MD [facility] [address] 09/21/2024 2:45 PM EDT Office Visit [place] [address] Trung Hoyos MD [facility] [place] [address] documented as of this encounter Visit Diagnoses Not on filedocumented in this encounter Care Teams Pick Pulling Machine Operator Relationship Specialty Start Date End Date Deacon Watters, HEADING AND PRIMING OPERATOR [address] [facility] 1 [place] [address] PCP - General Family Medicine 02/17/22 documented as of this encounter
--- OUTSIDE RECORDS SUMMARY | 2024-07-27 21:06 | XMS_ITS | Encounter Summary ---
Author Organization [facility] Address [facility] [place] [address] Care Team Providers Care Hot Header Operator Name Role Phone Deacon Watters APRN Primary Care Provider +1- [phone] Reason for Referral * Physical Therapy (Routine) - Closed Specialty Diagnoses / Procedures Referred By Contac t Referred To Contact Physical Therapy Diagnoses Spondylosis of cervical region without myelopathy or radiculopathy Santiago Morales PA [facility] [place] [address] Physical Therapy, [address] [place] [address] Referral ID Status Reason Start Date Expiration Date V isits Requested Visits Authorized [id number] Closed Evaluate and Treat 01/07/2024 07/05/2024 12 12 Reason for Visit * Reason Comments Neck Pain chronic neck pain/MR I 10/27/23 in [facility] * Consultation (Routine) - Closed Specialty Diagnoses / Procedures Referred By Contac t Referred To Contact Pain and Spine Center Diagnoses Cervicalgia Other chronic pain chronic neck pain/MRI 10/27/23 @ [facility] Deacon Watters APRN [address] [place] [address] [facility] [place] [address] Referral ID Status Reason Start Date Expiration Date V isits Requested Visits Authorized [id number] Closed Consult, Test & Treat PCP Updated and/or Approved 11/11/2023 05/10/2024 1 1 Encounter Details Date Type Department Care Team (Latest Contact Info) Description 01/07/2024 8:45 AM EST Office Visit [place] [address] Santiago Morales PA [facility] [place] [address] Spondylosis of cervical region without myelopathy or [...] for Pain and Spine @ [facility] for evaluation. Chief Complaint: Neck pain [...] light touch. Motor exam shows 4/5 left dry yard worker strength; otherwise 5/5 throughout. Negativehoffman bilaterally. Imaging: [...] neck pain. He has some left hand dry yard worker weakness but otherwise is neuro intact. Imaging [...] Vascular Unit Level [place] [address] Faheem Joy MD [facility] [place] [address] 08/15/2024 9:00 AM EDT Office Visit Gastroenterology at [place] [phone] Dion Barlow MD [facility] [address] 09/01/2024 9:40 AM EDT Office Visit Cardiology at [address] [address] Franky Shaver MD [facility] [place] [address] 09/01/2024 11:20 AM EDT Office Visit Dermatology at [address] [phone] Gómez Mercer MD [facility] [address] ED[place] [address] 09/21/2024 2:45 PM EDT Office Visit [place] [address] Trung Hoyos MD [facility] [address] Scheduled Referrals Name Type Priority Associated Diagnoses Orde r Schedule Referral to Physical Therapy Outpatient Referral Routine Spondylosis of cervical region without myelopathy or radiculopathy Ordered: 01/07/2024 documented as of this encounter Visit Diagnoses Diagnosis Spondylosis of cervical region without myelopathy or radiculopathy Cervical spondylosis without myelopathy documented in this encounter Care Teams Hot Header Operator Relationship Specialty Start Date End Date Deacon Watters, CARBIDER [address] [place] [address] PCP - General Family Medicine 02/17/22 documented as of this encounter
--- OUTSIDE RECORDS SUMMARY | 2024-07-27 21:06 | XMS_ITS | Encounter Summary ---
Author Organization [facility] Address [facility] [place] [address] Care Team Providers Care Trade Facilitator Name Role Phone Duong Deacon Wells APRN Primary Care Provider +1- [phone] Reason for Visit * Reason Comments Basal Cell Carcinoma Encounter Details Date Type Department Care Team (Latest Contact Info) Description 02/17/2024 8:00 AM EDT Procedure visit Dermatology at [facility] [address] [place] [address] Kingsley Finn MD [facility] DR EDDIE [facility] [address] Basal cell carcinoma of right side of [...] is performed when alternative procedures such as flap-ql-xzox stitching is not optimal. Your graft may [...] the first week unless told differently. Some air traffic instructor may need to be delayed or delegated [...] as often as is recommended by your coil taper, for new skin cancers. This is once [...] it. If after hours, please call the refinery operator gas plant or [phone] and ask for the coil taper on-call. If you have any non-urgent questions or concerns, please feel free to call my office or contact me through our patient portal, [employer], at [email or web address] How to contact us during business hours Dermatology at [facility] Road: Mohs scheduling or Mohs follow-up appointments: [phone] documented in this encounter Progress Notes * [...] and follow up with his or her coil taper or other skin provider. 5. Discussed avoiding [...] Reviewed and signed by: Kingsley Finn Dermatology [facility] * Kingsley Finn MD - 02/17/2024 8:00 AM EDT Mohs micrographic Surgery Operative Report Patient name: Brian Rodriguez : 1950 Date: 02/17/2024 Staff Surgeon and Pathologist: Kingsley Finn MD PhD Nursing/Web Knitter(s): Paula Baez RN, Zuly Morales RN, Barbara Platt RECOVERY OPERATOR HELPER, Olga Yostegand-Kaylin ROBINS, Vladimir aWrd CMA, Inge ArellanoCentral Harnett HospitalDenison PERSONNEL RESEARCH PSYCHOLOGIST, Leah PATEL Overhauler Helper (s): Vladimir Alejandro CMA Pre-operative diagnosis: Basal [...] The site was confirmed with the patient/authorized solar sales representative/referring physician and/or a photograph form [...] Surgery and Dermatologic Oncology Department of Dermatology [address] [place] [address] OPERATIVE REPORT (REPAIR) Patient Name: Brian Rodriguez Age: 73 y.o. : 1950 Date: 02/17/2024 Staff Surgeon: Kingsley Finn MD PhD Assistants: Zuly Morales RN; Shannen Garcia MD; Magda Edouard MD Diagnosis: Status post Mohs micrographic surgery defect/wound Site: right nasal dorsum Final Defect Size prior to repair: 4 x 2.9 cm Donor site: right nasolabial fold INDICATION: repair and temple of anatomy/function PROCEDURE: Full-thickness skin graft A [...] Rodriguez Staff Surgeon: Kingsley Finn MD PhD Roll On Man(s): same as above marketing assistant manager: Zuly Morales RN; Magda Edouard MD; Shannen Garcia MD Date: 02/17/2024 Clinical Diagnosis: skin and soft tissue defect status post Mohs micrographic surgery Location/Site: right nasal dorsum Indication: repair of wound with temple of anatomy/function Defect size to be repaired: [...] Surgery and Dermatologic Oncology Department of Dermatology [address] [place], [place] [id number] Note initiated by Zuly Morales RN. Zuly Morales RN has performed the documentation for this encounter in the presence of and acting as a scribe for Dr. Finn I performed the above scribed service and agree with the accuracy of the documentation in this encounter. Reviewed and signed by: Kingsley Finn Dermatology [facility] documented in this encounter Plan of Treatment Upcoming Encounters Date Type Department Care Team (Late st Contact Info) Description 07/29/2024 Hospital Encounter Heart and Vascular Unit Level 4 [place] [address] Faheem Joy MD [facility] [place] [address] 08/15/2024 9:00 AM EDT Office [place] [phone] Dion Barlow MD [facility] [place] [address] 09/01/2024 9:40 AM EDT Office Visit Cardiology at [address] [address] Franky Shaver MD [facility] [place] [address] 09/01/2024 11:20 AM EDT Office Visit Dermatology at [place] [address] [place] [address] Gómez Mercer MD [facility] DR ED[facility]IE [facility] [address] 09/21/2024 2:45 PM EDT Office Visit [place] [address] Trung Hoyos MD [facility] [place] [address] documented as of this encounter Visit Diagnoses Diagnosis Basal cell carcinoma of right side of nose Basal cell carcinoma of skin of other and unspecified parts of face documented in this encounter Care Teams Trade Facilitator Relationship Specialty Start Date End Date Deacon Watters, PHYSICAL FITNESS TEACHER [address] [place] [address] [address] [facility] 1 [place] [address] PCP - General Family Medicine 02/17/22 documented as of this encounter
--- OUTSIDE RECORDS SUMMARY | 2024-07-27 21:06 | XMS_ITS | Encounter Summary ---
Author Organization [facility] Address [facility] [place] [address] Care Team Providers Care Hide Paster Name Role Phone Deacon Watters APRN Primary Care Provider +1- [phone] Encounter Details Date Type Department Care Team (Latest Contact Info) Description 01/20/2024 9:28 AM EST - 01/20/2024 11:41 AM EST Hospital Encounter G[place] [address] Anthony Hamlin MD [facility] [place] [address] Discharge Disposition: Home Social History Tobacco Use [...] occurs, please contact your Doctor. Please call [phone] before 8pm Mon-Fri with problems, questions or concerns. If you call after 8pm or on weekends, call the Hospital at [phone] and ask to speak to the Verifying Specialist grease monkey and the operators school manager will contact that person for you. When should you call for help? Call [phone] anytime you think you may need emergency [...] any problems. Where can you learn more? [facility] View your After Visit Summary and more online at [email or web address] If you would like to provide [...] cost to you. Content Version: 12.2 ?? [id number] [employer]. Care instructions adapted under license by [facility]. If you have questions about a medical condition or this instruction, always ask your healthcare professional. [employer] disclaims any warranty or liability for your [...] Vascular Unit Level 4 [place] [address] Faheem Joy MD [facility] [place] [address] 08/15/2024 9:00 AM EDT Office Visit Gastroenterology at [place] [phone] Dion Barlow MD [facility] [place] [address] 09/01/2024 9:40 AM EDT Office Visit Cardiology at [address] [address] Franky Shaver MD [facility] [place] [address] 09/01/2024 11:20 AM EDT Office Visit Dermatology at [facility] [address] [place] [address] Gómez Mercer MD [facility] DR ED[place] [address] 09/21/2024 2:45 PM EDT Office Visit Pain [facility] [place] [address] Trung Hoyos MD [facility] [place] [address] documented as of this encounter Procedures Procedure [...] Routine 01/20/2024 10:24 AM EST Colonoscopy, Biopsy ([id number]) 01/20/2024 10:09 AM EST Left sided colitis without complications POCT GLUCOSE Routine 01/20/2024 10:05 AM EST POCT FINGERSTICK GLUCOSE Routine 01/20/2024 10:05 AM EST COLONOSCOPY Routine 01/20/2024 10:01 AM EST documented in this encounter Results * Specimen to Pathology (01/20/2024 10:48 AM EST) AP Specimen 01/20/2024 10:4 8 AM EST 01/20/2024 10:48 AM EST Narrative [facility] - 01/20/2024 10:48 AM EST Specimen requisition ordered. ??Separate Pathology report to follow Anthony Hamlin MD PATHOLOGY/CYTOLOGY O RDERABLES [facility] [place] [address] * Specimen to Pathology (01/20/2024 10:48 AM EST) AP Specimen 01/20/2024 10:4 8 AM EST 01/20/2024 10:48 AM EST Narrative [facility] - 01/20/2024 10:48 AM EST Specimen requisition ordered. ??Separate Pathology report to follow Anthony Hamlin MD PATHOLOGY/CYTOLOGY O CEE Performing Organization Address [facility] Co de Phone Number [facility] [place] [address] * Specimen to Pathology (01/20/2024 10:48 AM EST) AP Specimen 01/20/2024 10:4 8 AM EST 01/20/2024 10:48 AM EST Narrative [facility] - 01/20/2024 10:48 AM EST Specimen requisition ordered. ??Separate Pathology report to follow Anthony Hamlin MD PATHOLOGY/CYTOLOGY O CEE Performing Organization Address [facility] [place] [address] * Specimen to Pathology (01/20/2024 10:48 AM EST) AP Specimen 01/20/2024 10:4 8 AM EST 01/20/2024 10:48 AM EST Narrative [facility] - 01/20/2024 10:48 AM EST Specimen requisition ordered. ??Separate Pathology report to follow Anthony Hamlin MD PATHOLOGY/CYTOLOGY O CEE Performing Organization Address [facility] Co de Phone Number [facility] [place] [address] * Specimen to Pathology (01/20/2024 10:48 AM EST) AP Specimen 01/20/2024 10:4 8 AM EST 01/20/2024 10:48 AM EST Narrative [facility] - 01/20/2024 10:48 AM EST Specimen requisition ordered. ??Separate Pathology report to follow Anthony Hamlin MD PATHOLOGY/CYTOLOGY O CEE Performing Organization Address [facility] Co de Phone Number [facility] [place] [address] * Specimen to Pathology (01/20/2024 10:48 AM EST) AP Specimen 01/20/2024 10:4 8 AM EST 01/20/2024 10:48 AM EST Narrative [facility] - 01/20/2024 10:48 AM EST Specimen requisition ordered. ??Separate Pathology report to follow Anthony Hamlin MD PATHOLOGY/CYTOLOGY Ozzie MIKE [facility] [place] [id number] * Surgical Pathology Report (01/20/2024 10:24 AM EST) Final Diagnosis [id number] ? Location: 4T; EA12; A The signing [...] [facility] Dept. of Pathology, [place] [address] Self Defense Instructor: Joana Soler MD, FCAP, ??CLIA Certificate: [id number] SPECIMEN(S) SUBMITTED A - right colon, biopsy [...] labeled F1. ??sns 01/29/2024 12:04 PM EST [facility] GI Biopsy 01/20/2024 10:2 [...] [facility]/ZIP Co de Phone Number [facility] [place], [place] [phone] [place] [address] [place] [address] * POCT Glucose (01/20/2024 10:05 AM EST) Glucose, POC 114 65 - 199 mg/dL [facility] Comment: Supplemental ranges: <140 mg/dL before meals <180 mg/dL all other times of the day Blood 01/20/2024 10:0 5 AM EST 01/20/2024 10:05 AM EST Anthony Hamlin MD POINT OF CARE TEST O CEE Performing Organization Address City/[facility] Co de Phone Number [facility] [place] [address] * POCT Fingerstick Glucose (01/20/2024 10:05 AM EST) Glucose, POC 114 60 - 199 mg/dl 01/20/2024 10:0 5 AM EST Anthony Hamlin MD POINT OF CARE TEST O DANIELERAOMAR * COLONOSCOPY (01/20/2024 10:01 AM EST) COLONOSCOPY [facility] Endoscopy Procedure Date: 01/20/2024 10:01 AM ? Patient Name: Brian Rodriguez ? Date of : 1950 ? Age: 73 ? Order #: [id number] ? Instrument Name: [id number] ? Procedure: ? Colonoscopy Indications: ? Follow-up [...] ? physician, the nurse and the ? performing arts technicians in the pre-procedure ? area in the [...] RN) documented in this encounter Care Teams Hide Paster Relationship Specialty Start Date End Date Deacon Watters, JAZMINE [address] [place] [address] PCP - General Family Medicine 02/17/22 documented as of this encounter
--- OUTSIDE RECORDS SUMMARY | 2024-07-27 21:06 | XMS_ITS | Encounter Summary ---
Author Organization [facility] Address [facility] [place] [address] Care Team Providers Care Education Department Registrar Name Role Phone DuongVeliakip Wells APRN Primary Care Provider +1- [phone] Encounter Details Date Type Department Care Team (Late st Contact Info) Description 11/04/2022 Orders Only [place] [address] Dianna Shen, RN Other ulcerative [...] Vascular Unit Level 4 [place] [address] Faheem Joy MD [facility] [place] [address] 08/15/2024 9:00 AM EDT Office Visit [place] [address] Dion Barlow MD [facility] [place] [address] 09/01/2024 9:40 AM EDT Office Visit Cardiology at [address] [place] [address] Franky Shaver MD [facility] [place] [address] 09/01/2024 11:20 AM EDT Office Visit Dermatology at [facility] [address] [place] [address] Gómez Mercer MD [facility] [place] [address] 09/21/2024 2:45 PM EDT Office Visit [facility] [place] [address] Trung Hoyos MD [facility] [place] [address] documented as of this encounter Visit Diagnoses Diagnosis Other ulcerative colitis with rectal bleeding Left sided colitis without complications Left sided ulcerative (chronic) colitis Diarrhea, unspecified type documented in this encounter Care Teams Education Department Registrar Relationship Specialty Start Date End Date Deacon Watters, SENIOR CLINICAL DATA COORDINATOR [address] [facility] [address] [address] [facility] [facility] 1 [place] [address] PCP - General Family Medicine 02/17/22 documented as of this encounter
--- OUTSIDE RECORDS SUMMARY | 2024-07-27 21:06 | XMS_ITS | Encounter Summary ---
Author Organization [facility] Address [facility] [place] [address] Care Team Providers Care Seismic Observer Name Role Phone DuongVeliakip Wells APRN Primary Care Provider +1- [phone] Encounter Details Date Type Department Care Team (Late st Contact Info) Description 03/02/2024 2:45 PM EDT Office Visit Dermatology at [facility] [address] [place] [address] Matti Bland MD [facility] DR [place] [address] Visit for suture removal Social History Tobacco [...] 2. Follow up with referring provider or bleach liquor maker for skin exams. 3. Follow up with Dr. Keller: as needed Note initiated and signed by Inge Forte LPN documented in this encounter Plan of Treatment Upcoming Encounters Date Type Department Care Team (Late st Contact Info) Description 07/29/2024 Hospital Encounter Heart and Vascular Unit Level 4 [place] [address] Faheem Joy MD [facility] [place] [address] 08/15/2024 9:00 AM EDT Office [place] [address] Dion Barlow MD [facility] [place] [address] 09/01/2024 9:40 AM EDT Office Visit Cardiology at [address] [address] Franky Shaver MD [facility] [place] [address] 09/01/2024 11:20 AM EDT Office Visit Dermatology at [address] [address] Gómez Mercer MD [facility] DR [place] [address] 09/21/2024 2:45 PM EDT Office Visit [facility] [place] [address] Trung Hoyos MD [facility] [place] [address] documented as of this encounter Visit Diagnoses Diagnosis Visit for suture removal Encounter for removal of sutures documented in this encounter Care Teams Seismic Observer Relationship Specialty Start Date End Date Deacon Watters, RETAIL SUPPORT SPECIALIST [address] [place] [address] PCP - General Family Medicine 02/17/22 documented as of this encounter
--- OUTSIDE RECORDS SUMMARY | 2024-07-27 21:06 | XMS_ITS | Encounter Summary ---
Author Organization [facility] Lina [facility] [place] [place] [address] Care Team Providers Care Elevator Attendant Name Role Phone Deacon Watters APRN Primary Care Provider +1- [phone] Reason for Visit * Reason Comments Neck Pain * Consultation (Routine) - Closed Specialty Diagnoses / Procedures Referred By Contac t Referred To Contact Pain and Spine Center Diagnoses Spondylosis of cervical region without myelopathy or radiculopathy Santiago Morales PA [facility] [address] [facility] [place] [address] Referral ID Status Reason Start Date Expiration Date V isits Requested Visits Authorized [id number] Closed Pain Consult 04/06/2024 04/06/2025 1 1 Encounter Details Date Type Department Care Team (Latest Contact Info) Description 06/22/2024 8:00 AM EDT Office Visit [place] [address] Trung Hoyos MD [facility] [place] [address] Radiculopathy of cervical region (Primary Dx) Social History Tobacco Use Types Packs/Day Years Used Date Smoking Tobacco: Former Cigarettes 4 30 1 12/01/1961 - 10/01/1992 Smokeless Tobacco: Former Chew Comments:Denies vaping Alcohol Use Standard Drinks/Week Comments Yes 0 (1 standard drink = 0.6 oz pur e alcohol) twice a year [facility] Utilities Answer Date Recorded In the past [...] from the original note were not included. [facility] Initial Consultation Note DOS: 06/22/24 : 1950 Brian Rodriguez is a 73 y.o. year old male who presents to the pain clinic today at the referral of: Santiago Morales PA [facility] [place] [address] for consideration of treatment for his pain CC: Left-sided neck pain HPI: Brian Rodriguez prefers to be called Eduardo. He is alone today for this visit. He describes left-sided neck pain associated with some left hand weakness. 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 He indicated that he once fell over 50 feet onto his head holding his hard hat, injuring his neck, and crushing his right hand. He was taken to [facility] at that time. 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 Of note he helped build [facility] in the late or early He indicated he had a cortisone injection in his right shoulder which was helpful once. He had a possible lumbar epidural steroid injection at [facility] at least 25 years ago [...] 3.66) performed by Dion Osullivan MD at [facility] PRO COLONOSCOPY, BIOPSY N/A 02/22/2019 COLONOSCOPY FLEXIBLE, WITH BX (WRVU 3.66) performed by Dion Osullivan MD at [facility] COLONOSCOPY, BIOPSY N/A 03/28/2022 COLONOSCOPY FLEXIBLE, WITH BX (WRVU 3.66) performed by Mona Turner MD at [facility] PRO COLONOSCOPY, BIOPSY N/A 01/20/2024 COLONOSCOPY FLEXIBLE, WITH BX (WRVU 3.56) performed by Anthony Hamlin MD at [facility] COLONOSCOPY, DIAGNOSTIC 11/27/2011 COLONOSCOPY, DIAGNOSTIC performed by Dion OSULLIVAN at [facility] COLONOSCOPY, DIAGNOSTIC 07/13/2014 COLONOSCOPY, DIAGNOSTIC performed by Dion Osullivan MD at [facility] COLONOSCOPY, REMV LESN, SNARE N/A 02/22/2019 COLONOSCOPY, POLYPECTOMY, REMOVAL LESION BY SNARE (WRVU 4.67) performed by Dion Osullivan MD at [facility] COLONOSCOPY, REMV LESN, SNARE N/A 02/26/2021 COLONOSCOPY, POLYPECTOMY, REMOVAL LESION BY SNARE (WRVU 4.67) performed by Dion Osullivan MD at [facility] PRO SIGMOIDOSCOPY, DIAGNOSTIC 03/16/2012 FLEXIBLE SIGMOIDOSCOPY performed by YUDI MALLOY at [facility] PRO UPPER GI ENDOSCOPY, DIAGNOSTIC N/A 04/28/2019 EGD, UPPER GI ENDOSCOPY performed by Iza Coates MD at [facility] UPPER GI ENDOSCOPY, EXAM 10/01/2012 UPPER GI ENDOSCOPY performed by Dion OSULLIVAN at [facility] FAMILY HISTORY: No family [...] of Motion -limited Special tests - Neurologic: conductor yard - grossly intact Reflexes - 2+ and [...] the potential roles for physical therapy, the [facility] functional lutheran program, and the [facility] active pain care service Empowered Reliefprogram. He expressed interest in the above and wished to consider prior to enrolling. Ross may follow-up in 2 - 3 months or on an as needed basis Thank you for allowing us the opportunity to participate in Brian's care. I spent 45 minutes in direct [id number] time, with 40 minutes counseling him regarding treatment options and addressing specific questions. Thank you for referring him to our clinic. Trung Hoyos MD, MS Pulp Cooker of Anesthesiology [facility] of Medicine [address] [address] / [facility] CC: Santiago Morales PA [facility] [place] [address] documented in this encounter Plan of Treatment Upcoming Encounters Date Type Department Care Team (Late st Contact Info) Description 07/29/2024 Hospital Encounter Heart and Vascular Unit Level 4 [place] [address] Faheem Joy MD [facility] [place] [address] 08/15/2024 9:00 AM EDT Office [place] [address] Dion Osullivan MD [facility] [place] [address] 09/01/2024 9:40 AM EDT Office Visit Cardiology at [address] [address] Franky Shaver MD [facility] [place] [address] 09/01/2024 11:20 AM EDT Office Visit Dermatology at [facility] [address] [place] [address] Gómez Mercer MD [facility] [place] [address] 09/21/2024 2:45 PM EDT Office Visit [place] [address] Trung Hoyos MD [facility] [place] [address] Scheduled Referrals Name Type Priority Associated Diagnoses Orde r Schedule Referral to Pain and Spine Center (Internal only) Outpatient Referral Routine Spondylosis of cervical region without myelopathy or radiculopathy Ordered: 04/06/2024 documented as of this encounter Visit Diagnoses Diagnosis Radiculopathy of cervical region- Primary Brachial neuritis or radiculitis nos documented in this encounter Care Teams Elevator Attendant Relationship Specialty Start Date End Date Deacon Watters, COMPUTER SYSTEMS MANAGER [address] [place] [address] PCP - General Family Medicine 02/17/22 documented as of this encounter
--- OUTSIDE RECORDS SUMMARY | 2024-07-27 21:06 | XMS_ITS | Encounter Summary ---
Author Organization [facility] Address [facility] [place] [address] Care Team Providers Care Manager Hematology Name Role Phone Duong Deacon Wells APRN Primary Care Provider +1- [phone] Encounter Details Date Type Department Care Team [...] Vascular Unit Level 4 [place] [address] Faheem Joy MD [facility] [place] [address] 08/15/2024 9:00 AM EDT Office Visit [place] [address] Dion Barlow MD [facility] [place] [address] 09/01/2024 9:40 AM EDT Office Visit Cardiology at [address] [place] [address] Franky Shaver MD [facility] [place] [address] 09/01/2024 11:20 AM EDT Office Visit Dermatology at [facility] [address] [place] [address] Gómez Mercer MD [facility] [place] [address] 09/21/2024 2:45 PM EDT Office Visit [facility] [place] [address] Trung Hoyos MD [facility] [place] [address] documented as of this encounter Visit Diagnoses Not on filedocumented in this encounter Care Teams Manager Hematology Relationship Specialty Start Date End Date Deacon Watters, HUMAN RESOURCES EXECUTIVE [address] [facility] 1 [place] [address] PCP - General Family Medicine 02/17/22 documented as of this encounter
--- OUTSIDE RECORDS SUMMARY | 2024-07-27 21:06 | XMS_ITS | Encounter Summary ---
Author Organization [facility] Address [facility] [place] [address] Care Team Providers Care Paper Twister Tender Name Role Phone Duong Deacon Wells APRN Primary Care Provider +1- [phone] Encounter Details Date Type Department Care Team (Latest Contact Info) Description 12/07/2023 8:00 AM EST Office [place] [address] Dion Barlow MD [facility] [place] [address] Left sided colitis without complications Social History [...] the next approximately eight weeks, please call [phone] to schedule the exam. 5. Repeat routine labs today. 6. Follow-up at the time of colonoscopy and in the office with Farideh Weinberg APRN in about 6-8 months. documented in this encounter Progress Notes * Dion Barlow MD - 12/07/2023 8:00 AM EST Images from the original note were not included. [facility] IBD PROGRAM ESTABLISHED PATIENT VISIT Patient Active Problem List Diagnosis Ulcerative colitis Overview Note: Colonoscopy 04/08/10 (Dr. Gomes [facility]) - inflammation only within the rectum and sigmoid; extent of the exam was to the hepatic flexure; biopsies proximal to the sigmoid nl Repeat exam 11/27/11 ([facility]): mildly active colitis in the [...] ascending colon. Several HPs and one TA. [place] 03/2022 - [place] 1 limited to rectosigmoid, [...] for further details re current symptoms. 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 [...] neighbor. He is to follow-up with his tornado chaser, Deacon Watters APRN, in early December. Also [...] the next approximately 8 weeks, please call [phone] to schedule the exam. 5. Repeat routine labs today. 6. Follow-up at the time of colonoscopy and in the office with Farideh Weinberg APRN in about 6-8 months. Davina Barlow MD Hand Buffing Wheel Formertrolley cleaner Co-Director, [facility] Section of Gastroenterology [place] [address] documented in this encounter Plan of Treatment Upcoming Encounters Date Type Department Care Team (Late st Contact Info) Description 07/29/2024 Hospital Encounter Heart and Vascular Unit Level [place] [address] Faheem Joy MD [facility] [place] [address] 08/15/2024 9:00 AM EDT Office [place] [address] Dion Barlow MD [facility] [place] [address] 09/01/2024 9:40 AM EDT Office Visit Cardiology at [address] [address] Franky Shaver MD [facility] [place] [place] [address] 09/01/2024 11:20 AM EDT Office Visit Dermatology at [address] [address] Gómez Mercer MD [facility] DR EDDIE [place] [address] 09/21/2024 2:45 PM EDT Office Visit [place] [address] Trung Hoyos MD [facility] [place] [address] Scheduled Orders Name Type Priority Associated Diagnoses [...] 8:53 AM EST) Neutrophil % 70.6 % [facility] Neutrophil Absolute 4.29 1.70 - 6.10 x10(3)/[facility] Lymph % 20.4 % [facility] Lymphocytes Abs 1.2 0.9 - 3.2 x10(3)/[facility] Monocyte % 5.9 % [facility] Monocyte Abs 0.4 0.3 - 0.9 x10(3)/[facility] Eos % 2.1 % [facility] Eosinophils Abs 0.1 0.0 - 0.4 x10(3)/[facility] Basophil % 0.7 % [facility] Baso Absolute 0.0 0.0 - 0.1 x10(3)/[facility] Immature Gran % 0.30 % [facility] Comment: Immature granulocytes(IG's)percentage and absolute count will include metamyelocytes, myelocytes, and promyelocytes. Blood smears from CBCs yielding IG's will be scanned manually for concordance. If this scan disagrees with the automated IG or if promyelocytes are noted, a manual differential will be performed. Immature Gran Absolute 0.02 0.00 - 0.04 x10(3)/[facility] Blood 12/07/2023 8:53 AM EST 12/07/2023 9:03 AM EST Narrative Resulting Agency Comment Spec In Lab L Karthik Barlow MD HEMATOLOGY ORDERABLE S [facility] [place] [address] * (ABNORMAL) Hemogram (12/07/2023 8:53 AM EST) White Blood Cell 6.1 4.0 - 9.5 x10(3)/mc L [facility] Red Blood Cell 3.87(L) 4.58 - 5.54 x10(6)/mc L [facility] Hemoglobin 12.8(L) 13.7 - 16.5 g/dL [facility] Hematocrit 37.5(L) 40.5 - 48.5 % [facility] Mean Cell Volume 96.9(H) 82.9 - 93.1 fL [facility] Mean Cell Hemoglobin 33.1(H) 27.5 - 32.1 pg [facility] Mean Cell Hemoglobin Concentration 34.1 32.0 - 35.7 g/dL [facility] Platelet 199 145 - 357 x10(3)/mc L [facility] RDW Standard Deviation 44.2 36.0 - 45.0 fL [facility] RDW coefficient of variation 12.6 11.4 - 13.8 % [facility] Mean Platelet Volume 11.2 7.6 - 12.9 fL [facility] NRBC% auto 0.0 % [facility] NRBC Absolute 0.000 0.000 - 0.000 x10(3)/[facility] Blood 12/07/2023 8:53 AM EST 12/07/2023 9:03 AM EST Narrative Resulting Agency Comment Spec In Lab L Karthik Barlow MD HEMATOLOGY ORDERABLE S [facility] [place] [address] * CRP, acute inflammation (12/07/2023 8:53 AM EST) C-Reactive Protein <3.0 <=4.9 mg/L [facility] Blood 12/07/2023 8:53 AM EST 12/07/2023 9:03 AM EST Narrative Resulting Agency Comment Spec In Lab L Karthik Barlow MD CHEMISTRY ORDERABLES [facility] [place] [address] * (ABNORMAL) Comprehensive metabolic panel (non-fasting) (12/07/2023 8:53 AM EST) Glucose 140 65 - 199 mg/dL [facility] Comment:Diabetes: >=200 mg/d L plus symptoms Blood Urea Nitrogen 12 10 - 20 mg/dL [facility] Creatinine 1.05 0.80 - 1.50 mg/dL [facility] Sodium 144 135 - 145 mmol/L [facility] Potassium 4.0 3.5 - 5.0 mmol/L [facility] Comment: Please note: ??Patients with WBC >100,000 may have falsely elevated Potassium levels. ??For accurate Potassium quantification in these patients send serum separator tube (gold top) for subsequent determinations. ??Contact the Clinical Chemistry Laboratory if there are any questions. Chloride 109(H) 98 - 107 mmol/L [facility] Carbon Dioxide 24 22 - 31 mmol/L [facility] Anion Gap 11 5 - 15 mmol/L [facility] Calcium 9.5 8.5 - 10.5 mg/dL [facility] Protein, Total 7.8 6.1 - 8.0 g/dL [facility] Albumin 4.2 3.2 - 5.2 g/dL [facility] Aspartate Aminotransferase 13 0 - 39 unit/L [facility] Alanine Aminotransferase 15 0 - 55 unit/L [facility] Alkaline Phosphatase 77 40 - 130 unit/L [facility] Bilirubin, Total 0.4 0.2 - 1.3 mg/dL [facility] Est Glomerular Filtration Rate 74 >=60 mL/min/1. 73 m?? [facility] Comment: This patient's estimated GFR [...] Barlow MD CHEMISTRY ORDERABLES Performing Organization Address City/State/[facility] Co de Phone Number [facility] [place] [address] documented in this encounter Visit Diagnoses Diagnosis Left sided colitis without complications Left sided ulcerative (chronic) colitis documented in this encounter Care Teams Paper Twister Tender Relationship Specialty Start Date End Date Deacon Watters APRN [address] [place] [address] PCP - General Family Medicine 02/17/22 documented as of this encounter
--- OUTSIDE RECORDS SUMMARY | 2024-07-27 21:06 | XMS_ITS | Encounter Summary ---
Author Organization [facility] Address [facility] [place] [address] Care Team Providers Care Fur Trapper Name Role Phone DuongVeliakip Wells APRN Primary Care Provider +1- [phone] Encounter Details Date Type Department Care Team [...] Vascular Unit Level 4 [place] [address] Faheem Joy MD [facility] [place] [address] 08/15/2024 9:00 AM EDT Office [place] [address] Dion Barlow MD [facility] [place] [address] 09/01/2024 9:40 AM EDT Office Visit Cardiology at [address] [place] [address] Franky Shaver MD [facility] [place] [address] 09/01/2024 11:20 AM EDT Office Visit Dermatology at [facility] [address] [place] [address] Gómez Mercer MD [facility] [address] 09/21/2024 2:45 PM EDT Office Visit [place] [address] Trung Hoyos MD [facility] [place] [address] documented as of this encounter Visit Diagnoses Not on filedocumented in this encounter Care Teams Fur Trapper Relationship Specialty Start Date End Date Deacon Watters, SOCK BOARDER [address] [facility] 1 [place] [address] PCP - General Family Medicine 02/17/22 documented as of this encounter
--- OUTSIDE RECORDS SUMMARY | 2024-07-27 21:06 | XMS_ITS | Encounter Summary ---
Author Organization [facility] Address [facility] [place] [address] Care Team Providers Care Family Partner Name Role Phone DuongDeacon Priscilla LUCERO Primary Care Provider [phone]- [phone] Encounter Details Date Type Department Care Team [...] Vascular Unit Level 4 [place] [address] Faheem Joy MD [facility] [place] [address] 08/15/2024 9:00 AM EDT Office [place] [address] Dion Barlow MD [facility] [place] [address] 09/01/2024 9:40 AM EDT Office Visit Cardiology at [address] [place] [address] Franky Shaver MD [facility] [place] [address] 09/01/2024 11:20 AM EDT Office Visit Dermatology at [facility] [address] [place] [address] Gómez Mercer MD [facility] [place] [place] [address] 09/21/2024 2:45 PM EDT Office Visit [facility] [place] [address] Trung Hoyos MD [facility] [address] documented as of this encounter Visit Diagnoses Not on filedocumented in this encounter Care Teams Family Partner Relationship Specialty Start Date End Date Deacon Watters, CASING BUILDER [address] [facility] 1 [place] [address] PCP - General Family Medicine 02/17/22 documented as of this encounter
--- OUTSIDE RECORDS SUMMARY | 2024-07-27 21:06 | XMS_ITS | Encounter Summary ---
Author Organization [facility] Address [facility] [place] [address] Care Team Providers Care Picture Enlarger Name Role Phone Duong Deacon Wells APRN Primary Care Provider +1- [phone] Encounter Details Date Type Department Care Team [...] Vascular Unit Level 4 [place] [address] Faheem Joy MD [facility] [address] 08/15/2024 9:00 AM EDT Office [place] [address] Dion Barlow MD [facility] [place] [address] 09/01/2024 9:40 AM EDT Office Visit Cardiology at [address] [place] [address] Franky Shaver MD [facility] [place] [address] 09/01/2024 11:20 AM EDT Office Visit Dermatology at [facility] [address] [place] [address] Gómez Mercer MD [facility] [place] [address] 09/21/2024 2:45 PM EDT Office Visit [place] [address] Trung Hoyos MD [facility] [place] [address] documented as of this encounter Visit Diagnoses Not on filedocumented in this encounter Care Teams Picture Enlarger Relationship Specialty Start Date End Date Deacon Watters, ELIGIBILITY AND OCCUPANCY INTERVIEWER [address] [facility] 1 [place] [address] PCP - General Family Medicine 02/17/22 documented as of this encounter
--- OUTSIDE RECORDS SUMMARY | 2024-07-27 21:07 | XMS_ITS | Encounter Summary ---
Author Organization [facility] [place] [address] Care Team Providers Care Probation Counselor Name Role Phone Josue Wilkinson MD Primary Care Provider [phone] Reason for Visit * Reason Onset Date Comments Medication Refill 05/06/2021 Encounter Details Date Type Department Care Team (Late st Contact Info) Description 05/06/2021 Ref[place] [address] Marcelle Weinberg, JAZMINE [facility] [place] [address] Social History Tobacco Use Types Packs/Day Years [...] Vascular Unit Level [place] [address] Faheem Joy MD [facility] [place] [address] 08/15/2024 9:00 AM EDT Office [place] [address] Dion Barlow MD [facility] [place] [address] 09/01/2024 9:40 AM EDT Office Visit Cardiology at [address] [address] Franky Shaver MD [facility] [place] [address] 09/01/2024 11:20 AM EDT Office Visit Dermatology at [place] [address] [place] [address] Gómez Mercer MD [facility] [place] [address] 09/21/2024 2:45 PM EDT Office Visit [place] [address] Trung Hoyos MD [facility] [place] [address] documented as of this encounter Visit Diagnoses Not on filedocumented in this encounter Care Teams Probation Counselor Relationship Specialty Start Date End Date Josue Wilkinson MD PCP - General General Internal Medicine 02/14/2107/26 documented as of this encounter
--- OUTSIDE RECORDS SUMMARY | 2024-07-27 21:07 | XMS_ITS | Encounter Summary ---
Author Organization [facility] Address [facility] [place] [address] Care Team Providers Care Box Maker Paperboard Name Role Phone Josue Wilkinson MD Primary Care Provider [phone] Encounter Details Date Type Department Care Team (Latest Contact Info) Description 04/29/2021 9:00 AM EDT Office [place] [address] Marcelle Weinberg, JAZMINE [facility] [place] [address] Left sided colitis without complications Social History [...] encounter Progress Notes * Marcelle Weinberg C, DIRECTOR OF OPERATIONS FOR THERAPY - 04/29/2021 9:00 AM EDT Primary care [...] the sigmoid nl ?? Repeat exam 11/27/11 ([facility]): mildly active colitis in the sigmoid colon [...] Ref Range Status ??? COLONOSCOPY 02/26/2021 Final Value:[facility] Endoscopy Procedure Date: 02/26/2021 4:21 PM Patient Name: Brian Rodriguez Date of : 1950 Age: 70 Order #: [id number] Instrument Name: [id number] Procedure: Colonoscopy Indications: High risk colon cancer surveillance: Ulcerative colitis Patient Profile: This is a 70 year old male. This patient has left-sided ulcerative colitis, is taking sulfasalazine and topical steroid foam, and he is experien cing mild symptoms. Providers: Davian Barlow MD, Robi Payne MD: Josue Wilkinson [...] bowel preparation was evaluated using the BBPS ([place] Bowel Preparation Scale) with scores of: Right [...] Final ??? Surgical Pathology Report 02/26/2021 Final Value:[id number] Location: 4T; EA08; A The signing pathologist [...] MD Verified: 03/04/2021 16:33 Pathologist Performed at: -[facility] Dept. of Pathology, [place], [place] SPECIMEN(S) SUBMITTED A - right colon [...] Disease Center Section of Gastroenterology [place] [address] documented in this encounter Plan of Treatment Upcoming Encounters Date Type Department Care Team (Late st Contact Info) Description 07/29/2024 Hospital Encounter Heart and Vascular Unit Level 4 [place] [address] Faheem Joy MD [facility] [place] [address] 08/15/2024 9:00 AM EDT Office [place] [phone] Dion Barlow MD [facility] [place] [address] 09/01/2024 9:40 AM EDT Office Visit Cardiology at [address] [address] Franky Shaver MD [facility] [place] [address] 09/01/2024 11:20 AM EDT Office Visit Dermatology at [address] [place] [address] Gómez Mercer MD [facility] DR EDDIE [place] [address] 09/21/2024 2:45 PM EDT Office Visit Pain [place] [phone] Trung Hoyos MD [facility] [place] [address] documented as of this encounter Procedures Procedure [...] 10:22 AM EDT) Neutrophil % 65.3 % [facility] Neutrophil Absolute 3.34 1.70 - 6.10 x10(3)/ L [facility] Lymph % 23.0 % [facility] Lymphocytes Abs 1.2 0.9 - 3.2 x10(3)/[facility] Monocyte % 6.6 % [facility] Monocyte Abs 0.3 0.3 - 0.9 x10(3)/[facility] Eos % 2.9 % [facility] Eosinophils Abs 0.2 0.0 - 0.4 x10(3)/[facility] Basophil % 1.0 % [facility] Baso Absolute 0.0 0.0 - 0.1 x10(3)/ L [facility] Immature Gran % 1.20 % [facility] Comment: Immature granulocytes(IG's)percentage and absolute count will include metamyelocytes, myelocytes, and promyelocytes. Blood smears from CBCs yielding IG's will be scanned manually for concordance. If this scan disagrees with the automated IG or if promyelocytes are noted, a manual differential will be performed. Immature Gran Absolute 0.06(H) 0.00 - 0.04 x10(3)/ L [facility] Blood 04/29/2021 10:2 2 AM EDT 04/29/2021 10:29 AM EDT Narrative Resulting Agency Comment Spec In Lab Marcelle Weinberg DIRECTOR OF OPERATIONS FOR THERAPY HEMATOLOGY ORDERA BLES [facility] [place] [address] * (ABNORMAL) Hemogram (04/29/2021 10:22 AM EDT) [facility] White Blood Cell 5.1 4.0 - 9.5 x10(3)/mc L [facility] Red Blood Cell 3.78(L) 4.58 - 5.54 x10(6)/mc L [facility] Hemoglobin 12.4(L) 13.7 - 16.5 gm/dL [facility] Hematocrit 37.8(L) 40.5 - 48.5 % [facility] Mean Cell Volume 100.0(H) 82.9 - 93.1 fL [facility] Mean Cell Hemoglobin 32.8(H) 27.5 - 32.1 pg [facility] Mean Cell Hemoglobin Concentration 32.8 32.0 - 35.7 gm/dL [facility] Platelet 196 145 - 357 x10(3)/[facility]ORATORY RDW Standard Deviation 45.1(H) 36.0 - 45.0 [facility] RDW coefficient of variation 12.2 11.4 - 13.8 % [facility] Mean Platelet Volume 11.5 7.6 - 12.9 [facility] NRBC% auto 0.0 % [facility] NRBC Absolute 0.000 0.000 - 0.000 x10(3)/[facility] Blood 04/29/2021 10:2 2 AM EDT 04/29/2021 10:29 AM EDT Narrative Resulting Agency Comment Spec In Lab Marcelle Weinberg DIRECTOR OF OPERATIONS FOR THERAPY HEMATOLOGY ORDERA BLES [facility] [place] [address] * CRP, acute inflammation (04/29/2021 10:22 AM EDT) C-Reactive Protein <3.0 <=4.9 mg/L [facility] Blood 04/29/2021 10:2 2 AM EDT 04/29/2021 10:29 AM EDT Narrative Resulting Agency Comment Spec In Lab Marcelle Dunnwill DIRECTOR OF OPERATIONS FOR THERAPY CHEMISTRY ORDERAB LES Performing Organization Address City/[facility]/ZIP Co de Phone Number [facility] [place] [address] * Sedimentation rate (04/29/2021 10:22 AM EDT) [facility] Sedimentation Rate Automated 32 3 - 46 mm/hr [facility] Comment: Effective November 02, 2019 new capillary photometric technology has resulted in a change in reference ranges. It is recommended that each ESR result be reviewed with its own age appropriate reference range. Blood 04/29/2021 10:2 2 AM EDT 04/29/2021 10:29 AM EDT Narrative Resulting Agency Comment Spec In Lab Marcelle Dunnwill DIRECTOR OF OPERATIONS FOR THERAPY HEMATOLOGY ORDERA BLES Performing Organization Address City/[facility]/ZIP Co de Phone Number [facility] [place] [address] * (ABNORMAL) Comprehensive metabolic panel (non-fasting) (04/29/2021 10:22 AM EDT) Glucose 130 65 - 199 mg/dL [facility] Comment:Diabetes: >=200 mg/d L plus symptoms Blood Urea Nitrogen 21(H) 10 - 20 mg/dL [facility] Creatinine 1.14 0.80 - 1.50 mg/dL [facility] Sodium 142 135 - 145 mmol/L [facility] [...] mmol/L [facility] Carbon Dioxide 25 22 - 31 mmol/L [facility] Anion Gap 10 5 - 15 mmol/L [facility] Calcium 10.0 8.5 - 10.5 mg/dL [facility] Protein, Total 8.0 6.1 - 8.0 gm/dL [facility] Albumin 4.4 3.2 - 5.2 gm/dL [facility] Aspartate Aminotransferase 14 0 - 39 unit/L [facility] Alanine Aminotransferase 16 0 - 55 unit/L [facility] Alkaline Phosphatase 68 40 - 130 unit/L [facility] Bilirubin, Total 0.3 0.2 - 1.3 mg/dL [facility] Est Glomerular Filtration Rate 64 >=60 mL/min/1. 73 m?? [facility] Comment: This patient? s [...] Comment Spec In Lab Marcelle Weinberg DIRECTOR OF OPERATIONS FOR THERAPY CHEMISTRY ORDERAB LES [facility] [place] [address] documented in this encounter Visit Diagnoses Diagnosis Left sided colitis without complications Left sided ulcerative (chronic) colitis documented in this encounter Care Teams Box Maker Paperboard Relationship Specialty Start Date End Date Josue Wilkinson MD PCP - General General Internal Medicine 02/14/2107/26 documented as of this encounter
--- OUTSIDE RECORDS SUMMARY | 2024-07-27 21:07 | XMS_ITS | Encounter Summary ---
Author Organization [facility] [place] [address] Care Team Providers Care Aws Developer Name Role Phone Maximilian Fall MD Primary Care Provider [phone] Reason for Visit * Reason Comments Medication Refill Encounter Details Date Type Department Care Team (Late st Contact Info) Description 09/03/2020 Refill [place] [phone] Dion Barlow MD [facility] [place] [address] Social History Tobacco Use Types Packs/Day Years [...] Vascular Unit Level [place] [phone] Faheem Joy MD [facility] [place] [address] 08/15/2024 9:00 AM EDT Office [place] [phone] Dion Barlow MD [facility] [place] [address] 09/01/2024 9:40 AM EDT Office Visit Cardiology at [address] [place] [address] Franky Shaver MD [facility] [place] [address] 09/01/2024 11:20 AM EDT Office Visit Dermatology at [facility] [address] [place] [phone] Gómez Mercer MD [facility] [address] 09/21/2024 2:45 PM EDT Office Visit [facility] [place] [phone] Trung Hoyos MD [facility] [place] [address] documented as of this encounter Visit Diagnoses Not on filedocumented in this encounter Care Teams Aws Developer Relationship Specialty Start Date End Date Maximilian Fall MD [address] [facility] [place] [address] PCP - General 10/01/11 02/13/21 documented as of this encounter
--- OUTSIDE RECORDS SUMMARY | 2024-07-27 21:07 | XMS_ITS | Encounter Summary ---
Author Organization [facility] Address [facility] [place] [address] Care Team Providers Care Taxi Proprietor Name Role Phone Deacon Watters APRN Primary Care Provider [phone] Reason for Referral * Diagnostic Test (Routine) - Closed Specialty Diagnoses / Procedures Referred By Contac t Referred To Contact Radiology Diagnoses Left sided colitis without complications Procedures CT Abdomen & Pelvis w Contrast Dion Barlow MD [facility] [place] [address] Referral ID Status Reason Start Date Expiration Date V isits Requested Visits Authorized [id number] Closed Specialty Service Requested 04/22/2022 10/22/2023 1 1 Encounter Details Date Type Department Care Team (Late st Contact Info) Description 04/22/2022 8:00 AM EDT Office [place] [address] Dion Barlow MD [facility] [place] [address] Left sided colitis without complications; Tick bite [...] - CT scan to be arranged at [facility] in [facility] for left lower quadrant abd pain. - [...] ? Colonoscopy 04/08/10 (Dr. Gomes [facility]) [...] Interval History: Last visit with Faride[facility] 01/2022 Just had colo with Dr. Turner [...] adenopathy and no thyromegaly. 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 [...] Ref Range Status ??? COLONOSCOPY 03/28/2022 Final Value:[facility] Endoscopy Procedure Date: 03/28/2022 3:15 PM Patient Name: Brian Rodriguez Date of : 1950 Age: 71 Order #: [id number] Instrument Name: [id number] Procedure: Colonoscopy Indications: Follow-up of ulcerative colitis [...] bowel preparation was evaluated using the BBPS ([place] Bowel Preparation Scale) with scores of: Right [...] referring physician. Procedure Code(s): --- Professional --- 11571, Colonoscopy, flexible; with removal of tumor(s), polyp(s), or other lesion(s) by snare technique 08976, 59, Colonoscopy, flexible; with biopsy, single or multiple CPT copyright 2020 [employer]. All rights reserved. The codes documented in this report are preliminary and upon electrician machine shop review may be revised to meet current compliance requirements. Attending Participation: I personally performed the entire procedure. Mona Turner MD Mona Turner MD 03/28/2022 4:33:58 PM This report has been signed electronically. Number of Addenda: 0 Note Initiated On: 03/28/2022 3:15 PM ??? Surgical Pathology Report 03/28/2022 Final Value:[id number] Location: 4T; EA12; A The signing pathologist [...] Christina Verified: 04/03/2022 15:08 Pathologist Performed at: -[facility] Dept. of Pathology, [place], [place] SPECIMEN(S) SUBMITTED A - Sigmoid bx, [...] en toto in 1 cassette labeled C1. [facility] Hospital Outpatient Visit on 02/19/2022 Component [...] Recent endoscopic procedures 06/28/21 EGD ( [facility]): Pre op Dx; Dysphagia Post op [...] would like to have this done in [facility]. He will keep an [...] - CT scan to be arranged at [facility] in [facility] for left lower quadrant abd pain. - [...] spent 25 min today counseling the patient [id number] on the issues outlined above and 10 minutes reviewing the chart, preparing for this visit, documenting, and implementing the plan. Davina Barlow MD Journeyman Linemanwire winding machine tender Co-Director, [facility] Section of Gastroenterology [place] [address] documented in this encounter Plan of Treatment Upcoming Encounters Date Type Department Care Team (Late st Contact Info) Description 07/29/2024 Hospital Encounter Heart and Vascular Unit Level 4 [place] [phone] Faheem Joy MD [facility] [place] [address] 08/15/2024 9:00 AM EDT Office [place] [phone] Dion Barlow MD [facility] [place] [place] [address] 09/01/2024 9:40 AM EDT Office Visit Cardiology at [address] [place] [address] Franky Shavre MD [facility] [place] [address] 09/01/2024 11:20 AM EDT Office Visit Dermatology at [facility] [address] [place] [address] Gómez Mercer MD [facility] DR [place] [address] 09/21/2024 2:45 PM EDT Office Visit Pain and Spine Center at [facility] [place] [phone] Trung Hoyos MD [facility] [place] [address] documented as of this encounter Procedures Procedure [...] who have questions please contact the health campground caretaker that requested your imaging first. ? Electronically signed by: Papo Singer MD, [facility] ([phone]), at 09/29/2022 4:46 PM Narrative 09/29/2022 4:46 [...] Comment Unexpected Finding L Karthik Barlow MD [facility] ORDERABLES * Differential, Automated (04/22/2022 8:51 AM EDT) Neutrophil % 68.0 % [facility] Neutrophil Absolute 4.59 1.70 - 6.10 x10(3)/[facility] LABOR[facility] Lymph % 20.1 % [facility] Lymphocytes Abs 1.4 0.9 - 3.2 x10(3)/[facility]ORY Monocyte % 7.1 % [facility] Monocyte Abs 0.5 0.3 - 0.9 x10(3)/[facility] Eos % 3.8 % [facility] Eosinophils Abs 0.3 0.0 - 0.4 x10(3)/[facility] Basophil % 0.7 % [facility] Baso Absolute 0.0 0.0 - 0.1 x10(3)/[facility] Immature Gran % 0.30 % [facility] Comment: Immature granulocytes(IG's)percentage and absolute count will include metamyelocytes, myelocytes, and promyelocytes. Blood smears from CBCs yielding IG's will be scanned manually for concordance. If this scan disagrees with the automated IG or if promyelocytes are noted, a manual differential will be performed. Immature Gran Absolute 0.02 0.00 - 0.04 x10(3)/mcL [facility] Blood 04/22/2022 8:51 AM EDT 04/22/2022 8:57 AM EDT Narrative Resulting Agency Comment Spec In Lab L Karthik Barlow MD HEMATOLOGY ORDERABLE S [facility] [place] [address] * (ABNORMAL) Hemogram (04/22/2022 8:51 AM EDT) White Blood Cell 6.8 4.0 - 9.5 x10(3)/ L [facility] Red Blood Cell 3.70(L) 4.58 - 5.54 x10(6)/mc L [facility] Hemoglobin 12.4(L) 13.7 - 16.5 g/dL [facility] Hematocrit 37.5(L) 40.5 - 48.5 % [facility] Mean Cell Volume 101.4(H) 82.9 - 93.1 fL [facility] Mean Cell Hemoglobin 33.5(H) 27.5 - 32.1 pg [facility] Mean Cell Hemoglobin Concentration 33.1 32.0 - 35.7 g/dL [facility] Platelet 198 145 - 357 x10(3)/mc L [facility] RDW Standard Deviation 45.2(H) 36.0 - 45.0 fL [facility] RDW coefficient of variation 12.2 11.4 - 13.8 % [facility] Mean Platelet Volume 11.0 7.6 - 12.9 fL [facility] NRBC% auto 0.0 % [facility] NRBC Absolute 0.000 0.000 - 0.000 x10(3)/mc L [facility] Blood 04/22/2022 8:51 AM EDT 04/22/2022 8:57 AM EDT Narrative Resulting Agency Comment Spec In Lab L Karthik Barlow MD HEMATOLOGY ORDERABLE S [facility] [place] [address] * (ABNORMAL) Basic Metabolic Panel (non-fasting) (04/22/2022 8:51 AM EDT) Glucose 206(H) 65 - 199 mg/dL [facility] Comment:Diabetes: >=200 mg/d L plus symptoms Blood Urea Nitrogen 21(H) 10 - 20 mg/dL [facility] Creatinine 1.17 0.80 - 1.50 mg/dL [facility] Sodium 141 135 - 145 mmol/L [facility] Potassium 4.6 3.5 - 5.0 mmol/L [facility] Comment: Please note: ??Patients with WBC >100,000 may have falsely elevated Potassium levels. ??For accurate Potassium quantification in these patients send serum separator tube (gold top) for subsequent determinations. ??Contact the Clinical Chemistry Laboratory if there are any questions. Chloride 104 98 - 107 mmol/L [facility] Carbon Dioxide 26 22 - 31 mmol/L [facility] Anion Gap 11 5 - 15 mmol/L [facility] Calcium 10.1 8.5 - 10.5 mg/dL [facility] Est Glomerular Filtration Rate 61 >=60 mL/min/1. 73 m?? [facility] [...] Barlow MD CHEMISTRY ORDERABLES Performing Organization Address [facility] [address]/[facility] Co de Phone Number [facility] [place] [address] * CRP, acute inflammation (04/22/2022 8:51 AM EDT) C-Reactive Protein 3.3 <=4.9 mg/L [facility] Blood 04/22/2022 8:51 AM EDT 04/22/2022 8:57 AM EDT Narrative Resulting Agency Comment Spec In Lab L Karthik Barlow MD CHEMISTRY ORDERABLES Performing Organization Address [facility] [address]/[facility] Co de Phone Number [facility] [place] [address] * Sedimentation rate (04/22/2022 8:51 AM EDT) Sedimentation Rate Automated 36 3 - 46 mm/hr [facility] [...] ORDERABLE S Performing Organization Address [facility] [address]/[facility] Co de Phone Number [facility] [place] [address] documented in this encounter Visit Diagnoses Diagnosis Left sided colitis without complications Left sided ulcerative (chronic) colitis Tick bite of abdominal wall, initial encounter Gastroesophageal reflux disease, unspecified whether esophagitis present Left sided colitis without complications Left sided ulcerative (chronic) colitis documented in this encounter Care Teams Taxi Proprietor Relationship Specialty Start Date End Date Deacon Watters, JAZMINE [address] [facility] [place] [address] PCP - General Family Medicine 02/17/22 documented as of this encounter
--- OUTSIDE RECORDS SUMMARY | 2024-07-27 21:07 | XMS_ITS | Encounter Summary ---
Author Organization [facility] [place] [address] Care Team Providers Care Cone Operator Name Role Phone Josue Wilkinson MD Primary Care Provider [phone] Encounter Details Date Type Department Care Team (Latest Contact Info) Description 05/31/2021 1:35 PM EDT Laboratory Appointment Lab [address]L [place] [address] Left sided colitis without complications [...] Vascular Unit Level 4 [place] [address] Faheem Joy MD [facility] [place] [address] 08/15/2024 9:00 AM EDT Office [place] [address] Dion Barlow MD [facility] [place] [address] 09/01/2024 9:40 AM EDT Office Visit Cardiology at [address] [place] [phone] Franky Shaver MD [facility] [address] 09/01/2024 11:20 AM EDT Office Visit Dermatology at [place] [address] [address] [place] [address] Gómez Mercer MD [facility] DR [place] [address] 09/21/2024 2:45 PM EDT Office Visit Pain and Spine Center at [facility] [place] [address] Trung Hoyos MD [facility] [place] [address] documented as of this encounter Procedures Procedure [...] 1:49 PM EDT) Neutrophil % 70.8 % [facility] Neutrophil Absolute 5.02 1.70 - 6.10 x10(3)/[facility] Lymph % 18.5 % [facility] Lymphocytes Abs 1.3 0.9 - 3.2 x10(3)/[facility] LAB[facility]ORY Monocyte % 6.9 % [facility] Monocyte Abs 0.5 0.3 - 0.9 x10(3)/[facility] LABORATORY Eos % 2.8 % [facility] Eosinophils Abs 0.2 0.0 - 0.4 x10(3)/[facility] LABOR[facility]ORY Basophil % 0.6 % [facility] Baso Absolute 0.0 0.0 - 0.1 x10(3)/[facility] LABORATORY Immature Gran % 0.40 % [facility] Comment: Immature granulocytes(IG's)percentage and absolute count will include metamyelocytes, myelocytes, and promyelocytes. Blood smears from CBCs yielding IG's will be scanned manually for concordance. If this scan disagrees with the automated IG or if promyelocytes are noted, a manual differential will be performed. Immature Gran Absolute 0.03 0.00 - 0.04 x10(3)/[facility] LABORATORY Blood 05/31/2021 1:49 PM EDT 05/31/2021 1:52 PM EDT Narrative Resulting Agency Comment Spec In Lab Marcelle Weinberg SUCTION PLATE ROLLER HAND HEMATOLOGY ORDERA BLES [facility] [address] * (ABNORMAL) Hemogram (05/31/2021 1:49 PM EDT) White Blood Cell 7.1 4.0 - 9.5 x10(3)/ L [facility] Red Blood Cell 3.85(L) 4.58 - 5.54 x10(6)/ L [facility] Hemoglobin 12.6(L) 13.7 - 16.5 gm/dL [facility] Hematocrit 38.4(L) 40.5 - 48.5 % [facility] Mean Cell Volume 99.7(H) 82.9 - 93.1 fL [facility] Mean Cell Hemoglobin 32.7(H) 27.5 - 32.1 pg [facility] Mean Cell Hemoglobin Concentration 32.8 32.0 - 35.7 gm/dL [facility] Platelet 215 145 - 357 x10(3)/[facility] LABORATORY RDW Standard Deviation 45.1(H) 36.0 - 45.0 [facility] LABORATORY RDW coefficient of variation 12.3 11.4 - 13.8 % [facility] Mean Platelet Volume 11.2 7.6 - 12.9 [facility] LABORATORY NRBC% auto 0.0 % [facility] NRBC Absolute 0.000 0.000 - 0.000 x10(3)/[facility] LABORATORY Blood 05/31/2021 1:49 PM EDT 05/31/2021 1:52 PM EDT Narrative Resulting Agency Comment Spec In Lab Marcelle Weinberg APRN HEMATOLOGY ORDERA BLES [facility] [place] [address] * Ferritin (05/31/2021 1:49 PM EDT) [facility] Ferritin 94 30 - 400 ng/mL [facility] Comment: Pediatric reference ranges not verified at [facility], interpret with caution. Reference ranges for females greater than 50 years of age approach values for men, i.e., 30-400 ng/mL. Blood 05/31/2021 1:49 PM EDT 05/31/2021 1:52 PM EDT Narrative Resulting Agency Comment Spec In Lab Marcelle Weinberg SUCTION PLATE ROLLER HAND CHEMISTRY ORDERAB LES Performing Organization Address [facility] Co de Phone Number [facility] [place] [address] * Iron and TIBC (05/31/2021 1:49 PM EDT) Iron 86 45 - 160 mcg/dL [facility] TIBC 286 250 - 450 mcg/dL [facility] Iron Saturation 30 20 - 50 % [facility] Blood 05/31/2021 1:49 PM EDT 05/31/2021 1:52 PM EDT Narrative Resulting Agency Comment Spec In Lab Marcelle Weinberg SUCTION PLATE ROLLER HAND CHEMISTRY ORDERAB LES Performing Organization Address [facility] Co de Phone Number [facility] [address] * Vitamin B12 (05/31/2021 1:49 PM EDT) Vitamin B12 389 232 - 1,245 pg/mL [facility] Blood 05/31/2021 1:49 PM EDT 05/31/2021 1:52 PM EDT Narrative Resulting Agency Comment Spec In Lab Marcelle Weinberg SUCTION PLATE ROLLER HAND CHEMISTRY ORDERAB LES Performing Organization Address [facility] Co de Phone Number [facility] [place] [address] documented in this encounter Visit Diagnoses Diagnosis Left sided colitis without complications Left sided ulcerative (chronic) colitis documented in this encounter Care Teams Cone Operator Relationship Specialty Start Date End Date Josue Wilkinson MD PCP - General General Internal Medicine 02/14/21/3 documented as of this encounter
--- OUTSIDE RECORDS SUMMARY | 2024-07-27 21:07 | XMS_ITS | Encounter Summary ---
Author Organization [facility] Address [facility] [place] [address] Care Team Providers Care Photo Producer Name Role Phone Deacon Watters Priscilla LUCERO Primary Care Provider [phone] Reason for Visit * Reason Onset Date Comments Medication Refill 08/22/2022 Encounter Details Date Type Department Care Team (Late st Contact Info) Description 08/22/2022 [place] [address] Dion Barlow MD [facility] [place] [address] Social History Tobacco Use Types Packs/Day Years [...] Vascular Unit Level 4 [place] [address] Faheem Joy MD [facility] [place] [address] 08/15/2024 9:00 AM EDT Office [place] [address] Dion Barlow MD [facility] [place] [address] 09/01/2024 9:40 AM EDT Office Visit Cardiology at [address] [place] [address] Franky Shaver MD [facility] [place] [address] 09/01/2024 11:20 AM EDT Office Visit Dermatology at [place] [address] [place] [address] Gómez Mercer MD [facility] [place] [address] 09/21/2024 2:45 PM EDT Office Visit [place] [address] Trung Hoyos MD [facility] [place] [address] documented as of this encounter Visit Diagnoses Not on filedocumented in this encounter Care Teams Photo Producer Relationship Specialty Start Date End Date Deacon Watters, SEASONER [address] [place] [address] PCP - General Family Medicine 02/17/22 documented as of this encounter
--- OUTSIDE RECORDS SUMMARY | 2024-07-27 21:07 | XMS_ITS | Encounter Summary ---
Author Organization [facility] Address [facility] [place] [address] Care Team Providers Care Marina Manager Name Role Phone Deacon Watters APRN Primary Care Provider [phone]- [phone] Encounter Details Date Type Department Care Team (Late st Contact Info) Description 03/28/2022 3:15 PM EDT - 03/28/2022 4:00 PM EDT Surgery [place] [address] Mona Turner MD [facility] [place] [address] COLONOSCOPY FLEXIBLE, WITH BX (WRVU 3.56) Social [...] occurs, please contact your Doctor. Please call [phone] before 8pm Mon-Fri with problems, questions or concerns. If you call after 8pm or on weekends, call the Hospital at [phone] and ask to speak to the Home Health Clinical Supervisor e business consultant and the charging crane operator will contact that person for you. When should you call for help? Call 701 anytime you think you may need emergency [...] any problems. Where can you learn more? [facility] View your After Visit Summary and more online at [email or web address] If you would like to [...] cost to you. Content Version: 12.2 ?? 1363-1833 [email or web address]. Care instructions adapted under license by [facility]. If you have questions about a medical condition or this instruction, always ask your healthcare professional. [email or web address] disclaims any warranty or liability for your [...] Vascular Unit Level [place] [address] Faheem Joy MD [facility] [place] [address] 08/15/2024 9:00 AM EDT Office Visit Gastroenterology at [place] [phone] Dion Barlow MD [facility] [place] [address] 09/01/2024 9:40 AM EDT Office Visit Cardiology at [address] [address] Franky Shaver MD [facility] [place] [address] 09/01/2024 11:20 AM EDT Office Visit Dermatology at [place] [address] [place] [address] Gómez Mercer MD [facility] [place] [address] 09/21/2024 2:45 PM EDT Office Visit Pain and Spine Center at [place] [phone] Trung Hoyos MD [facility] [place] [address] (work) documented as of this encounter Procedures Procedure Name Priority Date/Time Associated Diagnosis Comments SURGICAL PATHOLOGY REPORT Routine 03/28/2022 4:22 PM EDT SPECIMEN TO PATHOLOGY Routine 03/28/2022 4:22 PM EDT SPECIMEN TO PATHOLOGY Routine 03/28/2022 4:22 PM EDT SPECIMEN TO PATHOLOGY Routine 03/28/2022 4:22 PM EDT Colonoscopy, Biopsy ([id number]) 03/28/2022 3:30 PM EDT Other ulcerative colitis with rectal bleeding COLONOSCOPY Routine 03/28/2022 3:15 PM EDT documented in this encounter Results * Surgical Pathology Report (03/28/2022 4:22 PM EDT) Final Diagnosis [id number] ? Location: 4T; EA12; A The signing [...] Christina Verified: ??04/03/2022 15:08 ??Pathologist Performed at: ??-[facility] Dept. [place]ology, [place], [place] SPECIMEN(S) SUBMITTED A - Sigmoid bx, [...] labeled C1. ??shb 04/03/2022 3:08 PM EDT [facility] GI Biopsy 03/28/2022 4:22 PM EDT 03/28/2022 4:22 PM EDT GI Biopsy 03/28/2022 4:22 PM EDT 03/28/2022 4:22 PM EDT GI Biopsy 03/28/2022 4:22 PM EDT 03/28/2022 4:22 PM EDT Mona Turner MD PATHOLOGY/CYTOLOGY O CEE Performing Organization Address City/State/[facility] Co de Phone Number [facility] [place] [address] * Specimen to Pathology (03/28/2022 4:22 PM EDT) AP Specimen 03/28/2022 4:22 PM EDT 03/28/2022 4:22 PM EDT Narrative [facility] - 03/28/2022 4:22 PM EDT Specimen requisition ordered. ??Separate Pathology report to follow Mona Turner MD PATHOLOGY/CYTOLOGY O CEE Performing Organization Address [facility]/[place] [address] * Specimen to Pathology (03/28/2022 4:22 PM EDT) AP Specimen 03/28/2022 4:22 PM EDT 03/28/2022 4:22 PM EDT Narrative [facility] - 03/28/2022 4:22 PM EDT Specimen requisition ordered. ??Separate Pathology report to follow Mona Turner MD PATHOLOGY/CYTOLOGY O CEE Performing Organization Address [facility] [place] [address] * Specimen to Pathology (03/28/2022 4:22 PM EDT) AP Specimen 03/28/2022 4:22 PM EDT 03/28/2022 4:22 PM EDT Narrative [facility] - 03/28/2022 4:22 PM EDT Specimen requisition ordered. ??Separate Pathology report to follow Mona Turner MD PATHOLOGY/CYTOLOGY Ozzie MIKE Performing Organization Address [facility] [place] [address] * COLONOSCOPY (03/28/2022 3:15 PM EDT) COLONOSCOPY [facility] Endoscopy Procedure Date: 03/28/2022 3:15 PM ? Patient Name: Brian Rodriguez ? Date of : 1950 ? Age: 71 ? Order #: [id number] ? Instrument Name: [id number] ? Procedure: ? Colonoscopy Indications: ? Follow-up of ulcerative colitis Providers: ? Mona Turner MD, April Augustine ? RONY Archibald, Shay Maynard MD: ?L. Karthik Barlow MD, Deacon Dior ? Duong Medicines: [...] ? was evaluated using the BBPS ? ([place] Bowel Preparation Scale) ? with scores of: [...] Procedure Code(s): ? --- Professional --- ? 89666, Colonoscopy, flexible; with ? removal of tumor(s), polyp(s), or ? other lesion(s) by snare technique ? 32204, 59, Colonoscopy, flexible; ? with biopsy, single or multiple CPT copyright 2020 [employer]. All rights reserved. The codes documented in this report are preliminary and upon office services clerk review may be revised to meet current compliance requirements. Attending Participation: ? I personally performed the entire procedure. ? Mona Turner MD _ Mona Turner MD 03/28/2022 4:33:58 PM This report has been signed electronically. Number of Addenda: 0 Note Initiated On: 03/28/2022 3:15 PM PROVATION 03/28/2022 3:15 PM EDT Deacon Watters PETROLEUM ANALYST GENERAL SURGICAL O RDERABLES PROVATION documented [...] April Archibald RN)1554 (Given - Provider: April Archibald, RONY)1605 (Given - Provider: April Archibald RN) documented in this encounter Care Teams Marina Manager Relationship Specialty Start Date End Date Deacon Watters, JAZMINE [address] [place] [address] PCP - General Family Medicine 3/28/22 documented as of this encounter
--- OUTSIDE RECORDS SUMMARY | 2024-07-27 21:07 | XMS_ITS | Encounter Summary ---
Author Organization [facility] Address [facility] [place] [address] Care Team Providers Care Glove Operator Name Role Phone Josue Wilkinson MD Primary Care Provider [phone] Encounter Details Date Type Department Care Team (Latest Contact Info) Description 02/26/2021 2:52 PM EDT - 02/26/2021 6:22 PM EDT Hospital Encounter [place] [address] Dion Barlow MD [facility] [place] [address] Discharge Disposition: Home Social History Tobacco Use [...] to be checked. 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 education Follow up care is a le part [...] Vascular Unit Level [place] [address] Faheem Joy MD [facility] [place] [address] 08/15/2024 9:00 AM EDT Office [place] [address] Dion Barlow MD [facility] [place] [address] 09/01/2024 9:40 AM EDT Office Visit Cardiology at [address] [address] Franky Shaver MD [facility] [place] [address] 09/01/2024 11:20 AM EDT Office Visit Dermatology at [address] [address] Gómez Mercer MD [facility] DR EDD[place] [address] 09/21/2024 2:45 PM EDT Office Visit [facility] [place] [address] Trung Hoyos MD [facility] [place] [address] documented as of this encounter Procedures Procedure Name Priority Date/Time Associated Diagnosis Comments POCT GLUCOSE Routine 02/26/2021 5:51 PM EDT SPECIMEN TO PATHOLOGY Routine 02/26/2021 5:10 PM EDT SPECIMEN TO PATHOLOGY Routine 02/26/2021 5:10 PM EDT SPECIMEN TO PATHOLOGY Routine 02/26/2021 5:10 PM EDT SURGICAL PATHOLOGY REPORT Routine 02/26/2021 4:53 PM EDT Colonoscopy, Pranay HammondsSallie muñiz ([id number]) 02/26/2021 4:28 PM EDT a repeat colonoscopy [...] CARE TEST O CEE Performing Organization Address City/[facility]/ZIP Co de Phone Number [facility] [place] [address] * Specimen to Pathology (02/26/2021 5:10 PM EDT) AP Specimen 02/26/2021 5:10 PM EDT 02/26/2021 5:10 PM EDT Narrative [facility] - 02/26/2021 5:10 PM EDT Specimen requisition ordered. ??Separate Pathology report to follow L Karthik Barlow MD PATHOLOGY/CYTOLOGY O RDMELISSA Performing Organization Address City/[facility]/ZIP Co de Phone Number [facility] [place] [address] * Specimen to Pathology (02/26/2021 5:10 PM EDT) AP Specimen 02/26/2021 5:10 PM EDT 02/26/2021 5:10 PM EDT Narrative [facility] - 02/26/2021 5:10 PM EDT Specimen requisition ordered. ??Separate Pathology report to follow L Karthik Barlow MD PATHOLOGY/CYTOLOGY O CEE Performing Organization Address [facility] [place] [address] * Specimen to Pathology (02/26/2021 5:10 PM EDT) AP Specimen 02/26/2021 5:10 PM EDT 02/26/2021 5:10 PM EDT Narrative [facility] - 02/26/2021 5:10 PM EDT Specimen requisition ordered. ??Separate Pathology report to follow L Karthik Barlow MD PATHOLOGY/CYTOLOGY O CEE Performing Organization Address [facility] de Phone Number [facility] [place] [address] * Surgical Pathology Report (02/26/2021 4:53 PM EDT) Pathologist [facility] Final Diagnosis [id number] ? Location: 4T; EA08; A The signing [...] MD Verified: ??03/04/2021 16:33 ??Pathologist Performed at: ??-[facility] Dept. of Pathology, [place], [place] SPECIMEN(S) SUBMITTED A - right colon [...] MD PATHOLOGY/CYTOLOGY O RDERABLES Performing Organization Address City/State/[facility] Co de Phone Number [facility] [place] [address] * COLONOSCOPY (02/26/2021 4:21 PM EDT) COLONOSCOPY [facility] Endoscopy ___ Procedure Date: 02/26/2021 4:21 PM ? Patient Name: Brian Rodriguez ? Date of : 1950 ? Age: 70 ? Order #: [id number] ? Instrument Name: [id number] ? ___ Procedure: ? Colonoscopy Indications: ? High risk colon cancer surveillance: ? Ulcerative colitis Patient Profile: ? This is a 70 year old male. This ? patient has left-sided ulcerative ? colitis, is taking sulfasalazine and ? topical steroid foam, and he is ? experiencing mild symptoms. Providers: ? Davina Barlow MD, Marcelo Maloney ? Robi Lawson MD: ?Josue Alfaraz Medicines: ? Midazolam 4 mg [...] preparation was evaluated using ? the BBPS ([place] Bowel Preparation ? Scale) with scores of: [...] CARE TEST O RDERABLES Performing Organization Address City/[facility]/ZIP Co de Phone Number [facility] [place] [address] documented in this encounter Visit Diagnoses Not [...] RN) documented in this encounter Care Teams Glove Operator Relationship Specialty Start Date End Date Josue Wilkinson MD PCP - General General Internal Medicine 02/14/21/3 documented as of this encounter
--- OUTSIDE RECORDS SUMMARY | 2024-07-27 21:07 | XMS_ITS | Encounter Summary ---
Author Organization [facility] Address [facility] [place] [address] Care Team Providers Care Plastic Extruding Machine Operator Name Role Phone Josue Wilkinson MD Primary Care Provider [phone] Encounter Details Date Type Department Care Team (Late st Contact Info) Description 04/16/2021 Telephone [place] [address] Mona Cherry Social History Tobacco [...] Vascular Unit Level 4 [place] [address] Faheem Joy MD [facility] [place] [address] 08/15/2024 9:00 AM EDT Office [place] [address] Dion Barlow MD [facility] [place] [address] 09/01/2024 9:40 AM EDT Office Visit Cardiology at [address] [place] [address] Franky Shaver MD [facility] [place] [address] 09/01/2024 11:20 AM EDT Office Visit Dermatology at [facility] [address] [place] [address] Gómez Mercer MD [facility] [address] 09/21/2024 2:45 PM EDT Office Visit Pain and Spine Center at [facility] [place] [address] Trung Hoyos MD [facility] PAIN [place] [address] documented as of this encounter Visit Diagnoses Not on filedocumented in this encounter Care Teams Plastic Extruding Machine Operator Relationship Specialty Start Date End Date Josue Wilkinson MD PCP - General General Internal Medicine 02/14/2107/26 documented as of this encounter
--- OUTSIDE RECORDS SUMMARY | 2024-07-27 21:07 | XMS_ITS | Encounter Summary ---
Author Organization [facility] Address [facility] [place] [address] Care Team Providers Care Cnc Mill Programmer Name Role Phone Duong Deacon Wells APRN Primary Care Provider +1- [phone] Encounter Details Date Type Department Care Team (Late st Contact Info) Description 02/26/2022 Orders [place] [address] Dianna Shen, RN Other ulcerative [...] Vascular Unit Level 4 [place] [address] Faheem Joy MD [facility] [place] [address] 08/15/2024 9:00 AM EDT Office [place] [address] Dion Barlow MD [facility] [place] [address] 09/01/2024 9:40 AM EDT Office Visit Cardiology at [address] [phone] Franky Shaver MD [facility] [place] [address] 09/01/2024 11:20 AM EDT Office Visit Dermatology at [place] [address] [place] [address] Gómez Mercer MD [facility] [place] [address] 09/21/2024 2:45 PM EDT Office Visit [place] [address] Trung Hoyos MD [facility] [address] documented as of this encounter Results * CRP, acute inflammation (09/29/2022 12:09 PM EST) [facility] C-Reactive Protein <3.0 <=4.9 mg/L [facility] Blood 09/29/2022 12:0 9 PM EST 09/29/2022 12:15 PM EST Narrative Resulting Agency Comment Spec In Lab Marcelle Weinberg ROUTE DELIVERY MANAGER CHEMISTRY ORDERAB LES [facility] [place] [address] * Sedimentation rate (09/29/2022 12:09 PM EST) [facility] Sedimentation Rate Automated 38 3 - 46 mm/hr [facility] Comment: Effective November 02, 2019 new capillary photometric technology has resulted in a change in reference ranges. It is recommended that each ESR result be reviewed with its own age appropriate reference range. Blood 09/29/2022 12:0 9 PM EST 09/29/2022 12:15 PM EST Narrative Resulting Agency Comment Spec In Lab Marcelle Weinberg ROUTE DELIVERY MANAGER HEMATOLOGY ORDERA BLES Performing Organization Address City/[facility] Co de Phone Number [facility] [place] [address] documented in this encounter Visit Diagnoses Diagnosis Other ulcerative colitis with rectal bleeding documented in this encounter Care Teams Cnc Mill Programmer Relationship Specialty Start Date End Date Deacon Watters APRN [address] [place] [address] PCP - General Family Medicine 02/17/22 documented as of this encounter
--- OUTSIDE RECORDS SUMMARY | 2024-07-27 21:07 | XMS_ITS | Encounter Summary ---
Author Organization [facility] Address [facility] [place] [address] Care Team Providers Care Technical Account Executive Name Role Phone Josue Wilkinson MD Primary Care Provider [phone] Encounter Details Date Type Department Care Team (Late st Contact Info) Description 04/30/2021 Telephone [place] [address] Marcelle Weinberg APRN [facility] [place] [address] Social History Tobacco Use Types Packs/Day Years [...] Vascular Unit Level [place] [address] Faheem Joy MD [facility] [place] [address] 08/15/2024 9:00 AM EDT Office Visit [place] [address] Dion Barlow MD [facility] [place] [address] 09/01/2024 9:40 AM EDT Office Visit Cardiology at [address] [address] Franky Shaver MD [facility] [place] [address] 09/01/2024 11:20 AM EDT Office Visit Dermatology at [address] [address] Gómez Mercer MD [facility] [address] 09/21/2024 2:45 PM EDT Office Visit [facility] [place] [address] Trung Hoyos MD [facility] [place] [address] documented as of this encounter Results * Vitamin B12 (05/31/2021 1:49 PM EDT) Vitamin B12 389 232 - 1,245 pg/mL [facility] Blood 05/31/2021 1:49 PM EDT 05/31/2021 1:52 PM EDT Narrative Resulting Agency Comment Spec In Lab Marcelle Dunnwill ENERGY CONSERVATION REPRESENTATIVE CHEMISTRY ORDERAB LES Performing Organization Address [facility]/ZIP Co de Phone Number [facility] [place] [address] * Iron and TIBC (05/31/2021 1:49 PM EDT) Iron 86 45 - 160 mcg/dL [facility] TIBC 286 250 - 450 mcg/dL [facility] Iron Saturation 30 20 - 50 % [facility] Blood 05/31/2021 1:49 PM EDT 05/31/2021 1:52 PM EDT Narrative Resulting Agency Comment Spec In Lab Marcelle Conte Dg Weinberg ENERGY CONSERVATION REPRESENTATIVE CHEMISTRY ORDERAB LES Performing Organization Address [facility] Co de Phone Number [facility] [place] [address] * Ferritin (05/31/2021 1:49 PM EDT) Ferritin 94 30 - 400 ng/mL [facility] Comment: Pediatric reference ranges not verified at [facility], interpret with caution. Reference ranges for females greater than 50 years of age approach values for men, i.e., 30-400 ng/mL. Blood 05/31/2021 1:49 PM EDT 05/31/2021 1:52 PM EDT Narrative Resulting Agency Comment Spec In Lab Marcelle Conte Dg Weinberg ENERGY CONSERVATION REPRESENTATIVE CHEMISTRY ORDERAB LES Performing Organization Address [facility] Co de Phone Number [facility] [place] [address] documented in this encounter Visit Diagnoses Diagnosis Left sided colitis without complications Left sided ulcerative (chronic) colitis documented in this encounter Care Teams Technical Account Executive Relationship Specialty Start Date End Date Josue Wilkinson MD PCP - General General Internal Medicine 02/14/2107/26 documented as of this encounter
--- OUTSIDE RECORDS SUMMARY | 2024-07-27 21:07 | XMS_ITS | Encounter Summary ---
[place] [address] Care Team Providers Care Care Information Associate Name Role Phone Maximilian Fall MD Primary Care Provider [phone] Encounter Details Date Type Department Care Team (Late st Contact Info) Description 01/17/2021 Telephone [place] [phone] César Garcia Social History Tobacco Use Types [...] - 01/17/2021 1:33 PM EST Brian Rodriguez [id number] Diagnosis/Indication: a repeat colonoscopy in two years [...] Vascular Unit Level [place] [address] Faheem Joy MD [facility] [place] [address] 08/15/2024 9:00 AM EDT Office Visit [place] [address] Dion Barlow MD [facility] [place] [address] 09/01/2024 9:40 AM EDT Office Visit Cardiology at [address] [place] [address] Franky Shaver MD [facility] [place] [address] 09/01/2024 11:20 AM EDT Office Visit Dermatology at [facility] [address] [place] [address] Gómez Mercer MD [facility] DR EDDIE [place] [address] 09/21/2024 2:45 PM EDT Office Visit [facility] [place] [address] Trung Hoyos MD [facility] [place] [address] documented as of this encounter Visit Diagnoses Not on filedocumented in this encounter Care Teams Care Information Associate Relationship Specialty Start Date End Date Maximilian Fall MD [address] [facility] 1 [place] [address] PCP - General 10/01/11 02/13/21 documented as of this encounter
--- OUTSIDE RECORDS SUMMARY | 2024-07-27 21:07 | XMS_ITS | Encounter Summary ---
Author Organization [facility] [place] [address] Care Team Providers Care Horticulture Professor Name Role Phone Deacon Watters APRN Primary Care Provider [phone]- [phone] Encounter Details Date Type Department Care Team (Late st Contact Info) Description 10/06/2022 Telephone [place] [address] Marcelle Weinberg SLATE CUTTER [facility] [place] [address] Social History Tobacco Use Types Packs/Day Years [...] of this CT to Paula Alonso ( [facility]) and he would also give her office a call. documented in this encounter Plan of Treatment Upcoming Encounters Date Type Department Care Team (Late st Contact Info) Description 07/29/2024 Hospital Encounter Heart and Vascular Unit Level [place] [address] Faheem Joy MD [facility] [place] [address] 08/15/2024 9:00 AM EDT Office [place] [address] Dion Barlow MD [facility] [place] [address] 09/01/2024 9:40 AM EDT Office Visit Cardiology at [address] [place] [address] Franky Shaver MD [facility] [place] [address] 09/01/2024 11:20 AM EDT Office Visit Dermatology at [facility] [address] [place] [address] Gómez Mercer MD [facility] DR ED[place] [address] 09/21/2024 2:45 PM EDT Office Visit [facility] [place] [address] Trung Hoyos MD [facility] [place] [address] documented as of this encounter Visit Diagnoses Not on filedocumented in this encounter Care Teams Horticulture Professor Relationship Specialty Start Date End Date Deacon Watters, SLATE CUTTER [address] [place] [address] PCP - General Family Medicine 02/17/22 documented as of this encounter
--- OUTSIDE RECORDS SUMMARY | 2024-07-27 21:07 | XMS_ITS | Encounter Summary ---
Author Organization [facility] [place] [address] Care Team Providers Care Lithographic Plate Maker Apprentice Name Role Phone Deacon Watters APRN Primary Care Provider [phone]- [phone] Encounter Details Date Type Department Care Team (Late st Contact Info) Description 11/03/2022 Telephone [place] [address] Jarret Roa RN Social History Tobacco Use [...] weeks. Labs and stool studies sent to [facility]- He will call when he drops [...] 11/03/2022 2:40 PM EST Per Farideh Weinberg, APPAREL MACHINERY INSTRUCTOR: Could you please check on him in [...] Vascular Unit Level [place] [address] Faheem Joy MD [facility] [place] [address] 08/15/2024 9:00 AM EDT Office [place] [address] Dion Barlow MD [facility] [place] [address] 09/01/2024 9:40 AM EDT Office Visit Cardiology at [address] [place] [address] Franky Shaver MD [facility] [place] [address] 09/01/2024 11:20 AM EDT Office Visit Dermatology at [facility] [address] [place] [address] Gómez Mercer MD [facility] [place] [address] 09/21/2024 2:45 PM EDT Office Visit Pain and Spine Center at [facility] [place] [address] Trung Hoyos MD [facility] [place] [address] documented as of this encounter Visit Diagnoses Not on filedocumented in this encounter Care Teams Lithographic Plate Maker Apprentice Relationship Specialty Start Date End Date Deacon Watters APRN [address] [facility] 1 [place] [address] PCP - General Family Medicine 02/17/22 documented as of this encounter
--- OUTSIDE RECORDS SUMMARY | 2024-07-27 21:07 | XMS_ITS | Encounter Summary ---
[place] [address] Care Team Providers Care Automatic Cigar Wrapper Tender Name Role Phone Deacon Watters APRN Primary Care Provider [phone]- [phone] Encounter Details Date Type Department Care Team (Late st Contact Info) Description 10/15/2022 Telephone [place] [address] Roselia Coronado Social History Tobacco Use Types [...] Vascular Unit Level 4 [place] [address] Faheem Joy MD [facility] [place] [address] 08/15/2024 9:00 AM EDT Office Visit Gastroenterology at [address] Dion Barlow MD [facility] [place] [address] 09/01/2024 9:40 AM EDT Office Visit Cardiology at [address] [address] Franky Shaver MD [facility] [place] [address] 09/01/2024 11:20 AM EDT Office Visit Dermatology at [address] [place] [address] Gómez Mercer MD [facility] [place] [address] 09/21/2024 2:45 PM EDT Office Visit [facility] [place] [address] Trung Hoyos MD [facility] [place] [address] documented as of this encounter Visit Diagnoses Not on filedocumented in this encounter Care Teams Automatic Cigar Wrapper Tender Relationship Specialty Start Date End Date Deacon Watters APRN [address] [facility] 1 [place] [address] PCP - General Family Medicine 02/17/22 documented as of this encounter
--- OUTSIDE RECORDS SUMMARY | 2024-07-27 21:07 | XMS_ITS | Encounter Summary ---
Author [place] [address] Care Team Providers Care Bottling Line Operator Name Role Phone Deacon Watters APRN Primary Care Provider +1- [phone] Encounter Details Date Type Department Care Team (Latest Contact Info) Description 02/19/2022 10:52 AM EDT - 02/19/2022 11:59 PM EDT Hospital [place] [address] Other ulcerative colitis with rectal bleeding Discharge [...] Vascular Unit Level 4 [place] [address] Faheem Joy MD [facility] [place] [address] 08/15/2024 9:00 AM EDT Office [place] [address] Dion Barlow MD [facility] GASTROENTEROLOGY [place], [place] [address] 09/01/2024 9:40 AM EDT Office Visit Cardiology at [address] [address] Franky Shaver MD [facility] [place] [address] 09/01/2024 11:20 AM EDT Office Visit Dermatology at [address] [address] Gómez Mercer MD [facility] DR EDDIE SANCHEZ-DERMATOLOGY [place], [place] [address] 09/21/2024 2:45 PM EDT Office Visit [place] [address] Trung Hoyos MD [facility] [place] [address] documented as of this encounter Procedures Procedure [...] Agency Comment Spec In Lab Marcelle Conte Dragnev FARMWORKER EGG PRODUCING FARM BODY FLUIDS AND S TOOLS ORDERABLES Performing Organization Address City/State/[facility] Co de Phone Number [facility] [place] [address] documented in this encounter Visit Diagnoses Diagnosis Other ulcerative colitis with rectal bleeding documented in this encounter Additional Health Concerns Infection Onset Date Last Indicated Resolved Time Rule Out C. difficile 02/19/2022 02/19/20222021 11:33 AM EDT documented as of this encounter Care Teams Bottling Line Operator Relationship Specialty Start Date End Date Deacon Watters APRN [address] [place] [address] PCP - General Family Medicine 02/17/22 documented as of this encounter
--- OUTSIDE RECORDS SUMMARY | 2024-07-27 21:07 | XMS_ITS | Encounter Summary ---
Author Organization [facility] Address [facility] [place] [address] Care Team Providers Care Labeling Strategist Name Role Phone Unknown Primary Care Provider Unavailabl e Encounter Details Date Type Department Care Team (Latest Contact Info) Description 08/26/2021 9:30 AM EDT Office [place] [address] Dion Barlow MD [facility] [place] [address] Other ulcerative colitis with rectal bleeding; Left [...] manometry. - Obtain upper endoscopy report from [facility] in June 2021 - [...] Overview Note: ?? Colonoscopy 04/08/10 (Dr. Gomes [facility]) - inflammation only within the rectum and sigmoid; extent of the exam was to the hepatic flexure; biopsies proximal to the sigmoid nl ?? Repeat exam 11/27/11 ([facility] [...] dysphagia to solids. Had an EGD at [facility] in Jun and recalls [...] manometry. - Obtain upper endoscopy report from [facility] in June 2021 - Avoid non-steroidal anti-inflammatory medications (NSAIDs) including but not limited to Advil, ibuprofen, Motrin, Aleve, Excedrin, naproxen, Mobic, indomethacin, and aspirin. Acetaminophen (Tylenol) is okay for aches and pains. - Follow-up in 6 months - will schedule colonoscopy at that time. I spent 30 min today reviewing the chart preparing for this visit, counseling the patient [id number] on the issues outlined above, and documenting an implementing the plan. Davina Barlow MD Marketing Development Representativeprogram review director Co-Director, [facility] Section of Gastroenterology [place] [address] documented in this encounter Plan of Treatment Upcoming Encounters Date Type Department Care Team (Late st Contact Info) Description 07/29/2024 Hospital Encounter Heart and Vascular Unit Level 4 Wing A at [facility] [place] [address] Faheem Joy MD [facility] [place] [address] 08/15/2024 9:00 AM EDT Office [place] [address] Dion Barlow MD [facility] [place] [address] 09/01/2024 9:40 AM EDT Office Visit Cardiology at [address] [place] [address] Franky Shaevr MD [facility] [place] [address] 09/01/2024 11:20 AM EDT Office Visit Dermatology at [place] [address] [place] [address] Gómez Mercer MD [facility] DR [place] [address] 09/21/2024 2:45 PM EDT Office Visit [place] [address] Trung Hoyos MD [facility] [place] [address] documented as of this encounter Visit Diagnoses Diagnosis Other ulcerative colitis with rectal bleeding Left sided colitis without complications Left sided ulcerative (chronic) colitis documented in this encounter Care Teams Labeling Strategist Relationship Specialty Start Date End Date Unknown None PCP - General 08/23/21 02/16/22 documented as of this encounter
--- OUTSIDE RECORDS SUMMARY | 2024-07-27 21:07 | XMS_ITS | Encounter Summary ---
[place] [address] Care Team Providers Care Full Time Name Role Phone Deacon Watters APRN Primary Care Provider +1- [phone] Encounter Details Date Type Department Care Team (Late st Contact Info) Description 02/26/2022 Telephone [place] [address] Erika Armas Social History Tobacco Use Types [...] - 02/26/2022 1:04 PM EDT Brian Rodriguez [id number] Diagnosis/Indication: UC, restage disease and for surveillance [...] Vascular Unit Level [place] [address] Faheem Joy MD [facility] [place] [address] 08/15/2024 9:00 AM EDT Office Visit [place] [address] Dion Barlow MD [facility] [place] [address] 09/01/2024 9:40 AM EDT Office Visit Cardiology at [address] [place] [address] Franky Shaver MD [facility] [place] [address] 09/01/2024 11:20 AM EDT Office Visit Dermatology at [facility] [address] [place] [address] Gómez Mercer MD [facility] DR EDDIE SANC[place] [address] 09/21/2024 2:45 PM EDT Office Visit [facility] [place] [address] Trung Hoyos MD [facility] [place] [address] documented as of this encounter Visit Diagnoses Not on filedocumented in this encounter Care Teams Full Time Relationship Specialty Start Date End Date Deacon Watters, JAZMINE [address] [place] [address] [address] [place] [address] PCP - General Family Medicine 02/17/22 documented as of this encounter
--- OUTSIDE RECORDS SUMMARY | 2024-07-27 21:07 | XMS_ITS | Encounter Summary ---
Author Organization [facility] Address [facility] [place] [address] Care Team Providers Care Water Taxi Boat Mate Name Role Phone Deacon Watters Priscilla LUCERO Primary Care Provider +1- [phone] Reason for Visit * Reason Onset Date Comments Medication Refill 08/22/2022 Encounter Details Date Type Department Care Team (Late st Contact Info) Description 08/22/2022 Ref[place] [address] Dion Barlow MD [facility] [place] [address] Social History Tobacco Use Types Packs/Day Years [...] Vascular Unit Level 4 [place] [address] Faheem Joy MD [facility] [place] [address] 08/15/2024 9:00 AM EDT Office [place] [address] Dion Barlow MD [facility] [place] [address] 09/01/2024 9:40 AM EDT Office Visit Cardiology at [address] [place] [address] Franky Shaver MD [facility] [place] [address] 09/01/2024 11:20 AM EDT Office Visit Dermatology at [place] [address] [place] [address] Gómez Mercer MD [facility] [place] [address] 09/21/2024 2:45 PM EDT Office Visit [place] [address] Trung Hoyos MD [facility] [place] [address] documented as of this encounter Visit Diagnoses Not on filedocumented in this encounter Care Teams Water Taxi Boat Mate Relationship Specialty Start Date End Date Deacon Watters, REDUCTION FURNACE OPERATOR [address] [place] [address] PCP - General Family Medicine 02/17/22 documented as of this encounter
--- OUTSIDE RECORDS SUMMARY | 2024-07-27 21:07 | XMS_ITS | Encounter Summary ---
Author Organization Formerly [facility], [facility] Address [facility] [place] [address] Care Team Providers Care Jewelry Model Maker Name Role Phone Deacon Watters APRN Primary Care Provider +1- [phone] Encounter Details Date Type Department Care Team (Latest Contact Info) Description 03/28/2022 2:03 PM EDT - 03/28/2022 5:24 PM EDT Hospital Encounter [place] [address] Mona Turner MD [facility] [place] [address] Discharge Disposition: Home Social History Tobacco Use [...] occurs, please contact your Doctor. Please call [phone] before 8pm Mon-Fri with problems, questions or concerns. If you call after 8pm or on weekends, call the Hospital at [phone] and ask to speak to the Railroad Brake Repairer environment coordinator and the framing mill operator helper will contact that person for you. When should you call for help? Call 335 anytime you think you may need emergency [...] any problems. Where can you learn more? [facility] View your After Visit Summary and more online at [email or web address] If you would like to provide [...] cost to you. Content Version: 12.2 ?? [id number] [employer]. Care instructions adapted under license by [facility]. If you have questions about a medical condition or this instruction, always ask your healthcare professional. [employer] disclaims any warranty or liability for your [...] Vascular Unit Level 4 [place] [address] Faheem Joy MD [facility] [place] [address] 08/15/2024 9:00 AM EDT Office Visit Gastroenterology at [place] [phone] Dion Barlow MD [facility] [place] [place] [address] 09/01/2024 9:40 AM EDT Office Visit Cardiology at [address] [address] Franky Shaver MD [facility] [place] [address] 09/01/2024 11:20 AM EDT Office Visit Dermatology at [place] [address] [place] [address] Gómez Mercer MD [facility] DR EDDIE [place] [address] 09/21/2024 2:45 PM EDT Office Visit Pain and Spine Center at [place] [phone] Trung Hoyos MD [facility] [place] [place] [address] documented as of this encounter Procedures Procedure Name Priority Date/Time Associated Diagnosis Comments SURGICAL PATHOLOGY REPORT Routine 03/28/2022 4:22 PM EDT SPECIMEN TO PATHOLOGY Routine 03/28/2022 4:22 PM EDT SPECIMEN TO PATHOLOGY Routine 03/28/2022 4:22 PM EDT SPECIMEN TO PATHOLOGY Routine 03/28/2022 4:22 PM EDT Colonoscopy, Biopsy ([id number]) 03/28/2022 3:30 PM EDT Other ulcerative colitis with rectal bleeding COLONOSCOPY Routine 03/28/2022 3:15 PM EDT documented in this encounter Results * Surgical Pathology Report (03/28/2022 4:22 PM EDT) Final Diagnosis [id number] ? Location: 4T; EA12; A The signing [...] Christina Verified: ??04/03/2022 15:08 ??Pathologist Performed at: ??-[facility] Dept. of Pathology, [place], [place] SPECIMEN(S) SUBMITTED A - Sigmoid bx, [...] labeled C1. ??shb 04/03/2022 3:08 PM EDT [facility] GI Biopsy 03/28/2022 4:22 PM EDT 03/28/2022 4:22 PM EDT GI Biopsy 03/28/2022 4:22 PM EDT 03/28/2022 4:22 PM EDT GI Biopsy 03/28/2022 4:22 PM EDT 03/28/2022 4:22 PM EDT Mona Turner MD PATHOLOGY/CYTOLOGY O CEE Performing Organization Address City/[facility] Co de Phone Number [facility] [place] [address] * Specimen to Pathology (03/28/2022 4:22 PM EDT) AP Specimen 03/28/2022 4:22 PM EDT 03/28/2022 4:22 PM EDT Narrative [facility] - 03/28/2022 4:22 PM EDT Specimen requisition ordered. ??Separate Pathology report to follow Mona Turner MD PATHOLOGY/CYTOLOGY O CEE Performing Organization Address City/[facility]/[place] [address] * Specimen to Pathology (03/28/2022 4:22 PM EDT) AP Specimen 03/28/2022 4:22 PM EDT 03/28/2022 4:22 PM EDT Narrative [facility] - 03/28/2022 4:22 PM EDT Specimen requisition ordered. ??Separate Pathology report to follow Mona Turner MD PATHOLOGY/CYTOLOGY O RDMELISSA Performing Organization Address [facility] [place] [address] * Specimen to Pathology (03/28/2022 4:22 PM EDT) AP Specimen 03/28/2022 4:22 PM EDT 03/28/2022 4:22 PM EDT Narrative [facility] - 03/28/2022 4:22 PM EDT Specimen requisition ordered. ??Separate Pathology report to follow Mona Turner MD PATHOLOGY/CYTOLOGY O CEE Performing Organization Address [facility] [place] [address] * COLONOSCOPY (03/28/2022 3:15 PM EDT) COLONOSCOPY [facility] Endoscopy Procedure Date: 03/28/2022 3:15 PM ? Patient Name: Brian Rodriguez ? Date of : 1950 ? Age: 71 ? Order #: [id number] ? Instrument Name: [id number] ? Procedure: ? Colonoscopy Indications: ? Follow-up of ulcerative colitis Providers: ? Mona uTrner MD, April Augustine ? RONY Archibald, Shay Marques Referring : ?Davina Barlow MD, Deacon Dior ? Duong [...] ? was evaluated using the BBPS ? ([place] Bowel Preparation Scale) ? with scores of: [...] Procedure Code(s): ? --- Professional --- ? 35718, Colonoscopy, flexible; with ? removal of tumor(s), polyp(s), or ? other lesion(s) by snare technique ? 30476, 59, Colonoscopy, flexible; ? with biopsy, single or multiple CPT copyright 2020 [employer]. All rights reserved. The codes documented in this report are preliminary and upon health and safety technician review may be revised to meet current compliance requirements. Attending Participation: ? I personally performed the entire procedure. ? Mona Turner MD _ Mona Turner MD 03/28/2022 4:33:58 PM This report has been signed electronically. Number of Addenda: 0 Note Initiated On: 03/28/2022 3:15 PM PROVATION 03/28/2022 3:15 PM EDT Deacon Watters [employer] [facility] [employer]OVATION documented in [...] RN) documented in this encounter Care Teams Jewelry Model Maker Relationship Specialty Start Date End Date Deacon Watters, JAZMINE [address] [place] [address] PCP - General Family Medicine 02/17/22 documented as of this encounter
--- OUTSIDE RECORDS SUMMARY | 2024-07-27 21:07 | XMS_ITS | Encounter Summary ---
Author Organization [facility] [place] [address] Care Team Providers Care Sales And Service Change Leader Name Role Phone Maximilian Fall MD Primary Care Provider [phone] Reason for Visit * Reason Onset Date Comments Medication Refill 12/11/2020 Encounter Details Date Type Department Care Team (Late st Contact Info) Description 12/11/2020 Refill [place] [phone] Dion Barlow MD [facility] [place] [address] Left sided colitis without complications Social History [...] Vascular Unit Level 4 [place] [phone] Faheem Joy MD [facility] [place] [address] 08/15/2024 9:00 AM EDT Office [place] [phone] Dion Barlow MD [facility] [place] [address] 09/01/2024 9:40 AM EDT Office Visit Cardiology at [address] [place] [phone] Franky Shaver MD [facility] [place] [address] 09/01/2024 11:20 AM EDT Office Visit Dermatology at [place] [address] [place] [phone] Gómez Mercer MD [facility] [place] [address] 09/21/2024 2:45 PM EDT Office Visit [facility] [place] [phone] Trung Hoyos MD [facility] [place] [address] documented as of this encounter Visit Diagnoses Diagnosis Left sided colitis without complications Left sided ulcerative (chronic) colitis documented in this encounter Care Teams Sales And Service Change Leader Relationship Specialty Start Date End Date Maximilian Fall MD [address] [facility] [address] [place] [address] PCP - General 10/01/11 02/13/21 documented as of this encounter
--- OUTSIDE RECORDS SUMMARY | 2024-07-27 21:07 | XMS_ITS | Encounter Summary ---
Author Organization [facility] Address [facility] [place] [address] Care Team Providers Care Engineering Programmer Name Role Phone Deacon Watters APRN Primary Care Provider [phone]- [phone] Encounter Details Date Type Department Care Team (Late st Contact Info) Description 09/29/2022 11:00 AM EST Office [place] [address] Marcelle Weinberg BAKER PASTRY [facility] [place] [address] Left sided colitis without complications; Other ulcerative [...] Note: ? Colonoscopy 04/08/10 (Dr. Gomes [facility]) - inflammation only within the [...] was cancer, followed by Dr. Carrillo, at [facility]. IBD Questionnaire No questionnaires on file. [...] Vitals: 09/29/22 1108 BP: 153/72 BP Location ([facility]): Left arm Patient Position: Sitting BP [...] Disease Center Section of Gastroenterology [place] [address] documented in this encounter Miscellaneous Notes * Addendum Note - Andres De Dios - 09/29/2022 11:00 AM ESTAddended by: ANDRES DE DIOS on: 09/29/2022 12:05 PM Modules accepted: Orders documented in this encounter Plan of Treatment Upcoming Encounters Date Type Department Care Team (Late st Contact Info) Description 07/29/2024 Hospital Encounter Heart and Vascular Unit Level [place] [address] Faheem Joy MD [facility] [place] [address] 08/15/2024 9:00 AM EDT Office [place] [address] Dion Barlow MD [facility] [place] [address] 09/01/2024 9:40 AM EDT Office Visit Cardiology at [address] [phone] Franky Shaver MD [facility] [place] [address] 09/01/2024 11:20 AM EDT Office Visit Dermatology at [address] [phone] Gómez Mercer MD [facility] [place] [address] 09/21/2024 2:45 PM EDT Office Visit [facility] [place] [phone] Trung Hoyos MD [facility] [place] [address] documented as of this encounter Procedures Procedure [...] Rate Automated 38 3 - 46 mm/hr [facility] Comment: Effective November 02, 2019 new capillary photometric technology has resulted in a change in reference ranges. It is recommended that each ESR result be reviewed with its own age appropriate reference range. Blood 09/29/2022 12:0 9 PM EST 09/29/2022 12:15 PM EST Narrative Resulting Agency Comment Spec In Lab Marcelle Weinberg BAKER PASTRY HEMATOLOGY ORDERA BLES Performing Organization Address [facility]/ZIP Co de Phone Number [facility] [place] [address] * CRP, acute inflammation (09/29/2022 12:09 PM EST) C-Reactive Protein <3.0 <=4.9 mg/L [facility] Blood 09/29/2022 12:0 9 PM EST 09/29/2022 12:15 PM EST Narrative Resulting Agency Comment Spec In Lab Marcelle Dunnjeovannyjania BAKER PASTRY CHEMISTRY ORDERAB LES Performing Organization Address [facility] Co de Phone Number [facility] [place] [address] * Creatinine (09/29/2022 12:09 PM EST) Creatinine 1.10 0.80 - 1.50 mg/dL [facility] Est Glomerular Filtration Rate 70 >=60 mL/min/1. 73 m?? [facility] Comment: This patient's estimated [...] APRN CHEMISTRY ORDERAB LES Performing Organization Address City/State/[facility] Co de Phone Number [facility] [place] [address] documented in this encounter Visit Diagnoses Diagnosis Left sided colitis without complications Left sided ulcerative (chronic) colitis Other ulcerative colitis with rectal bleeding documented in this encounter Care Teams Engineering Programmer Relationship Specialty Start Date End Date Deacon Watters APRN [address] [place] [address] PCP - General Family Medicine 02/17/22 documented as of this encounter
--- OUTSIDE RECORDS SUMMARY | 2024-07-27 21:07 | XMS_ITS | Encounter Summary ---
[place] [address] Care Team Providers Care Continuous Dryout Operator Helper Name Role Phone Deacon Watters APRN Primary Care Provider +1- [phone] Encounter Details Date Type Department Care Team (Late st Contact Info) Description 02/26/2022 [place] [phone] Dianna Shen RN Social History Tobacco Use [...] reminding him to get labs. Called [facility] and they had not been done yet. * Telephone Encounter - Dianna Shen RN - 02/26/2022 4:06 PM EDT TC placed to follow up with Brian. Reports improvement in diarrhea. Says he has a scheduled colonoscopy 03/28. Discussed elevation in labs of CRP and ESR, as well as mild anemia per Farideh. Patient plans to have labs rechecked at [facility] on Thursday. documented in this encounter Plan of Treatment Upcoming Encounters Date Type Department Care Team (Late st Contact Info) Description 07/29/2024 Hospital Encounter Heart and Vascular Unit Level [place] [address] Faheem Joy MD [facility] [place] [address] 08/15/2024 9:00 AM EDT Office Visit Gastroenterology at [place] [phone] Dion Barlow MD [facility] [place] [place] [address] 09/01/2024 9:40 AM EDT Office Visit Cardiology at [address] [address] Franky Shaver MD [facility] [place] [address] 09/01/2024 11:20 AM EDT Office Visit Dermatology at [place] [address] [place] [address] Gómez Mercer MD [facility] [place] [address] 09/21/2024 2:45 PM EDT Office Visit Pain and Spine Center at [place] [phone] Trung Hoyos MD [facility] [place] [address] documented as of this encounter Visit Diagnoses Not on filedocumented in this encounter Care Teams Continuous Dryout Operator Helper Relationship Specialty Start Date End Date Deacon Watters APRN [address] [place] [address] PCP - General Family Medicine 02/17/22 documented as of this encounter
--- OUTSIDE RECORDS SUMMARY | 2024-07-27 21:07 | XMS_ITS | Encounter Summary ---
Author Organization [facility] Address [facility] [place] [address] Care Team Providers Care Integration Project Manager Name Role Phone Deacon Watters APRN Primary Care Provider +1- [phone] Encounter Details Date Type Department Care Team (Late st Contact Info) Description 02/17/2022 9:30 AM EDT Office Visit [place] [address] Marcelle Weinberg BLURB WRITER [facility] [place] [address] Other ulcerative colitis with rectal bleeding Social [...] Overview Note: ? Colonoscopy 04/08/10 ([facility] [...] Final Recent endoscopic procedures 06/28/21 EGD ( [facility]): Pre op Dx; Dysphagia Post op [...] Disease Center Section of Gastroenterology [place] [address] documented in this encounter Plan of Treatment Upcoming Encounters Date Type Department Care Team (Late st Contact Info) Description 07/29/2024 Hospital Encounter Heart and Vascular Unit Level [place] [address] Faheem Joy MD [facility] [place] [address] 08/15/2024 9:00 AM EDT Office Visit [place] [address] Dion Barlow MD [facility] [place] [place] [address] 09/01/2024 9:40 AM EDT Office Visit Cardiology at [address] [place] [phone] Franky Shaver MD [facility] [place] [address] 09/01/2024 11:20 AM EDT Office Visit Dermatology at [facility] [address] [place] [address] Gómez Mercer MD [facility] DR [place] [address] 09/21/2024 2:45 PM EDT Office Visit Pain and Spine Center at [facility] [place] [address] Trung Hoyos MD [facility] [place] [address] Scheduled Orders Name Type Priority Associated Diagnoses [...] * Calprotectin, Stool (02/19/2022 8:00 AM EDT) [facility] Calprotectin, Stool 55 <=79 mcg/g [facility] Comment: Calprotectin Concentration ? Interpretation ? < 80 mcg/g ?Normal ? 80 ? 160 mcg/g ?Borderline ? >160 mcg/g ?Elevated Stool 02/19/2022 8:00 AM EDT 02/19/2022 11:25 AM EDT Narrative Resulting Agency Comment Spec In Lab Marcelle Conte Dragwill BLURB WRITER BODY FLUIDS AND S TOOLS ORDERABLES [facility] [place] [address] * (ABNORMAL) Differential, Automated (02/17/2022 10:40 AM EDT) [facility] Neutrophil % 65.7 % [facility] Neutrophil Absolute 4.53 1.70 - 6.10 x10(3)/mc L [facility] Lymph % 22.8 % [facility] Lymphocytes Abs 1.6 0.9 - 3.2 x10(3)/mc L [facility] Monocyte % 7.3 % [facility] Monocyte Abs 0.5 0.3 - 0.9 x10(3)/mc L [facility] Eos % 2.6 % [facility] Eosinophils Abs 0.2 0.0 - 0.4 x10(3)/mc L [facility] Basophil % 0.6 % [facility] Baso Absolute 0.0 0.0 - 0.1 x10(3)/ L [facility] Immature Gran % 1.00 % [facility] Comment: Immature granulocytes(IG's)percentage and absolute count will include metamyelocytes, myelocytes, and promyelocytes. Blood smears from CBCs yielding IG's will be scanned manually for concordance. If this scan disagrees with the automated IG or if promyelocytes are noted, a manual differential will be performed. Immature Gran Absolute 0.07(H) 0.00 - 0.04 x10(3)/[facility] Blood 02/17/2022 10:4 0 AM EDT 02/17/2022 10:50 AM EDT Narrative Resulting Agency Comment Spec In Lab Marcelle Weinberg APRN HEMATOLOGY ORDERA BLES Performing Organization Address City/State/[facility] Co de Phone Number [facility] [place] [address] * (ABNORMAL) Hemogram (02/17/2022 10:40 AM EDT) White Blood Cell 6.9 4.0 - 9.5 x10(3)/ L [facility] Red Blood Cell 3.58(L) 4.58 - 5.54 x10(6)/ L [facility] Hemoglobin 11.5(L) 13.7 - 16.5 g/dL [facility] Hematocrit 35.1(L) 40.5 - 48.5 % [facility] Mean Cell Volume 98.0(H) 82.9 - 93.1 fL [facility] Mean Cell Hemoglobin 32.1 27.5 - 32.1 pg [facility] Mean Cell Hemoglobin Concentration 32.8 32.0 - 35.7 g/dL [facility] Platelet 220 145 - 357 x10(3)/ L [facility] RDW Standard Deviation 44.3 36.0 - 45.0 fL [facility] RDW coefficient of variation 12.3 11.4 - 13.8 % [facility] Mean Platelet Volume 10.5 7.6 - 12.9 fL [facility] NRBC% auto 0.0 % [facility] NRBC Absolute 0.000 0.000 - 0.000 x10(3)/mc L [facility] Blood 02/17/2022 10:4 0 AM EDT 02/17/2022 10:50 AM EDT Narrative Resulting Agency Comment Spec In Lab Marcelle Dunnjeovannyjania BLURB WRITER HEMATOLOGY ORDERA BLES Performing Organization Address [facility]/ZIP Co de Phone Number [facility] [place] [address] * (ABNORMAL) CRP, acute inflammation (02/17/2022 10:40 AM EDT) C-Reactive Protein 5.0(H) <=4.9 mg/L [facility] Blood 02/17/2022 10:4 0 AM EDT 02/17/2022 10:50 AM EDT Narrative Resulting Agency Comment Spec In Lab Marcelle Dunnjeovannyjania BLURB WRITER CHEMISTRY ORDERAB LES Performing Organization Address [facility] Co de Phone Number [facility] [place] [address] * (ABNORMAL) Sedimentation rate (02/17/2022 10:40 AM EDT) Sedimentation Rate Automated 64(H) 3 - 46 mm/hr [facility] [...] Comment Spec In Lab Marcelle Conte Dg Monajeovannyv BLURB WRITER HEMATOLOGY ORDERA BLES [facility] [place] [address] * Comprehensive metabolic panel (non-fasting) (02/17/2022 10:40 AM EDT) Glucose 94 65 - 199 mg/dL [facility] Comment:Diabetes: >=200 mg/d L plus symptoms Blood Urea Nitrogen 14 10 - 20 mg/dL [facility] Creatinine 1.06 0.80 - 1.50 mg/dL [facility] Sodium 144 135 - 145 mmol/L [facility] Potassium 3.9 3.5 - 5.0 mmol/L [facility] [...] Protein, Total 8.0 6.1 - 8.0 g/dL [facility] Albumin 4.3 3.2 - 5.2 g/dL [facility] Aspartate Aminotransferase 10 0 - 39 unit/L [facility] Alanine Aminotransferase 17 0 - 55 unit/L [facility] Alkaline Phosphatase 78 40 - 130 unit/L [facility] Bilirubin, Total 0.4 0.2 - 1.3 mg/dL [facility] Est Glomerular Filtration Rate 69 >=60 mL/min/1. 73 m?? [place] [...] Lab Marcelle Weinberg APRN CHEMISTRY ORDERAB LES [facility] [place] [address] documented in this encounter Visit Diagnoses Diagnosis Other ulcerative colitis with rectal bleeding documented in this encounter Care Teams Integration Project Manager Relationship Specialty Start Date End Date Deacon Watters APRN [address] [place] [address] PCP - General Family Medicine 02/17/22 documented as of this encounter
--- OUTSIDE RECORDS SUMMARY | 2024-07-27 21:07 | XMS_ITS | Encounter Summary ---
Author Organization Formerly [facility] [address] Care Team Providers Care Public Area Supervisor Name Role Phone Deacon Watters APRN Primary Care Provider [phone]- [phone] Reason for Referral * Diagnostic Test (Routine) - Closed Specialty Diagnoses / Procedures Referred By Contac t Referred To Contact Radiology Diagnoses Left sided colitis without complications Procedures CT Abdomen & Pelvis w Contrast Dion Barlow MD [facility] [place] [address] Referral ID Status Reason Start Date Expiration Date V isits Requested Visits Authorized [id number] Closed Specialty Service Requested 04/22/2022 10/22/2023 1 1 Reason for Visit * Diagnostic Test (Routine) - Closed Specialty Diagnoses / Procedures Referred By Contac t Referred To Contact Radiology Diagnoses Left sided colitis without complications Procedures CT Abdomen & Pelvis w Contrast Dion Barlow MD [facility] [place] [address] Referral ID Status Reason Start Date Expiration Date V isits Requested Visits Authorized [id number] Closed Specialty Service Requested 04/22/2022 10/22/2023 1 1 Encounter Details Date Type Department Care Team (Latest Contact Info) Description 09/29/2022 1:05 PM EST - 09/29/2022 11:59 PM EST Hospital [place] [address] Dion Barlow MD [facility] [place] [address] Left sided colitis without complications Discharge Disposition: [...] Vascular Unit Level 4 [place] [address] Faheem Joy MD [facility] [place] [address] 08/15/2024 9:00 AM EDT Office Visit [place] [address] Dion Barlow MD [facility] [place] [address] 09/01/2024 9:40 AM EDT Office Visit Cardiology at [address] [place] [address] Franky Shaver MD [facility] [place] [address] 09/01/2024 11:20 AM EDT Office Visit Dermatology at [facility] [address] [place] [address] Gómez Mercer MD [facility] DR EDD[place] [address] 09/21/2024 2:45 PM EDT Office Visit Pain and Sp[facility] at [facility] [place] [address] Trung Hoyos MD [facility] [place] [address] documented as of this encounter Procedures Procedure [...] have questions please contact the health care management associate that requested your imaging first. ? Electronically signed by: Papo Singer MD, [facility] ([phone]), at 09/29/2022 4:46 PM Narrative 09/29/2022 4:46 [...] mLs documented in this encounter Care Teams Public Area Supervisor Relationship Specialty Start Date End Date Deacon Watters, DYE TUB TENDER [address] [facility] [address] [place] [address] PCP - General Family Medicine 02/17/22 documented as of this encounter
--- OUTSIDE RECORDS SUMMARY | 2024-07-27 21:07 | XMS_ITS | Encounter Summary ---
Author Organization [facility] Address [facility] [place] [address] Care Team Providers Care Adult Education Manager Name Role Phone Josue Wilkinson MD Primary Care Provider Encounter Details Date Type Department Care Team (Late st Contact Info) Description 02/26/2021 4:00 PM EDT - 02/26/2021 5:00 PM EDT Surgery [place] [address] Dion Barlow MD [facility] [place] [address] COLONOSCOPY, POLYPECTOMY, REMOVAL LESION BY SNARE (WRVU [...] to be checked. 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 Follow up care is a le part [...] Vascular Unit Level 4 [place] [address] Faheem Joy MD [facility] [place] [address] 08/15/2024 9:00 AM EDT Office Visit [place] [address] Dion Barlow MD [facility] [place] [address] 09/01/2024 9:40 AM EDT Office Visit Cardiology at [address] [address] Franky Shaver MD [facility] [place] [address] 09/01/2024 11:20 AM EDT Office Visit Dermatology at [address] [address] Gómez Mercer MD [facility] DR EDDIE SANCHEZ-DERMATOLOGY [place], [place] [address] 09/21/2024 2:45 PM EDT Office Visit Pain [place] [address] Trung Hoyos MD [facility] [place] [address] documented as of this encounter Procedures Procedure Name Priority Date/Time Associated Diagnosis Comments POCT GLUCOSE Routine 02/26/2021 5:51 PM EDT SPECIMEN TO PATHOLOGY Routine 02/26/2021 5:10 PM EDT SPECIMEN TO PATHOLOGY Routine 02/26/2021 5:10 PM EDT SPECIMEN TO PATHOLOGY Routine 02/26/2021 5:10 PM EDT SURGICAL PATHOLOGY REPORT Routine 02/26/2021 4:53 PM EDT Colonoscopy, [address] ([id number]) 02/26/2021 4:28 PM EDT a repeat colonoscopy in two years from 02/22/19 COLONOSCOPY Routine 02/26/2021 4:21 PM EDT POCT GLUCOSE Routine 02/26/2021 3:42 PM EDT documented in this encounter Results * POCT Glucose (02/26/2021 5:51 PM EDT) Glucose, POC 160 65 - 199 mg/dL [facility] Comment: Supplemental ranges: <140 mg/dL before meals <180 mg/dL all other times of the day Blood specimen (specimen) 02/26/2021 5:51 PM EDT 02/26/2021 12:00 PM EDT L Karthik Barlow MD POINT OF CARE TEST O CEE Performing Organization Address [facility]/ZIP Co de Phone Number [facility] [place] [address] * Specimen to Pathology (02/26/2021 5:10 PM EDT) AP Specimen 02/26/2021 5:10 PM EDT 02/26/2021 5:10 PM EDT Narrative [facility] - 02/26/2021 5:10 PM EDT Specimen requisition ordered. ??Separate Pathology report to follow L Karthik Barlow MD PATHOLOGY/CYTOLOGY O RDERAOMAR Performing Organization Address City/[facility]/ZIP Co de Phone Number [facility] [place] [address] * Specimen to Pathology (02/26/2021 5:10 PM EDT) AP Specimen 02/26/2021 5:10 PM EDT 02/26/2021 5:10 PM EDT Narrative [facility] - 02/26/2021 5:10 PM EDT Specimen requisition ordered. ??Separate Pathology report to follow L Karthik Barlow MD PATHOLOGY/CYTOLOGY O CEE Performing Organization Address [facility] Co de Phone Number [facility] [place] [address] * Specimen to Pathology (02/26/2021 5:10 PM EDT) AP Specimen 02/26/2021 5:10 PM EDT 02/26/2021 5:10 PM EDT Narrative [facility] - 02/26/2021 5:10 PM EDT Specimen requisition ordered. ??Separate Pathology report to follow L Karthki Barlow MD PATHOLOGY/CYTOLOGY O CEE Performing Organization Address [facility] de Phone Number [facility] [place] [address] * Surgical Pathology Report (02/26/2021 4:53 PM EDT) Pathologist [facility] Final Diagnosis [id number] ? Location: 4T; EA08; A The signing [...] MD Verified: ??03/04/2021 16:33 ??Pathologist Performed at: ??-[facility] [place], [place], [place] SPECIMEN(S) SUBMITTED A - right colon [...] labeled C1. ??shb 03/04/2021 4:33 PM EDT [facility] GI Biopsy 02/26/2021 4:53 PM EDT 02/26/2021 4:53 PM EDT GI Biopsy 02/26/2021 4:53 PM EDT 02/26/2021 4:53 PM EDT GI Biopsy 02/26/2021 4:53 PM EDT 02/26/2021 4:53 PM EDT L Karthik Barlow MD PATHOLOGY/CYTOLOGY O RDERABLES [facility] [place] [address] * COLONOSCOPY (02/26/2021 4:21 PM EDT) COLONOSCOPY [facility] ___ Procedure Date: 02/26/2021 4:21 PM ? Patient Name: Brian Rodriguez ? [facility]: [id number] ? Date of : 1950 ? Age: 70 ? Order #: [id number] ? Instrument Name: [id number] ? ___ Procedure: ? Colonoscopy Indications: ? High risk colon cancer surveillance: ? Ulcerative colitis Patient Profile: ? This is a 70 year old male. This ? patient has left-sided ulcerative ? colitis, is taking sulfasalazine and ? topical steroid foam, and he is ? experiencing mild symptoms. Providers: ? Davina Barlow MD, Marcelo Maloney ? Robi Lawson Referring : ?Josue Alfairis Medicines: ? Midazolam 4 mg [...] preparation was evaluated using ? the BBPS ([place] Bowel Preparation ? Scale) with scores of: [...] Josue Wilkinson MD GENERAL SURGICAL ORD ERABLES Performing Organization Address City/[facility]/ZIP Co de Phone Number [facility] * POCT Glucose (02/26/2021 3:42 PM EDT) Glucose, POC 128 65 - 199 mg/dL [facility] Comment: Supplemental ranges: <140 mg/dL before meals <180 mg/dL all other times of the day Blood specimen (specimen) 02/26/2021 3:42 PM EDT 02/26/2021 12:00 PM EDT L Karthik Barlow MD POINT OF CARE TEST O RDERABLES Performing Organization Address [facility] Co de Phone Number [facility] [place] [address] documented in this encounter Visit Diagnoses Not [...] RN) documented in this encounter Care Teams Adult Education Manager Relationship Specialty Start Date End Date Josue Wilkinson MD PCP - General General Internal Medicine 02/14/2107/26 documented as of this encounter
--- OUTSIDE RECORDS SUMMARY | 2024-07-27 21:07 | XMS_ITS | Encounter Summary ---
[place] [address] Care Team Providers Care Diamond Grader Name Role Phone Deacon Watters APRN Primary Care Provider [phone]- [phone] Encounter Details Date Type Department Care Team (Late st Contact Info) Description 05/05/2022 Telephone [place] [address] Dianna Shen RN Social History Tobacco Use [...] AM EDT Marbella from [facility] called to check on the status of this CT she can be reached at [phone]. * Telephone Encounter - Dianna Shen RN [...] left from radiology at [facility]. Due to contrast shortage, contrast IV [...] Vascular Unit Level 4 [place] [address] Faheem Joy MD [facility] [place] [address] 08/15/2024 9:00 AM EDT Office Visit [place] [address] Doin Barlow MD [facility] [place] [address] 09/01/2024 9:40 AM EDT Office Visit Cardiology at [address] [place] [address] Franky Shaver MD [facility] [place] [address] 09/01/2024 11:20 AM EDT Office Visit Dermatology at [facility] [address] [place] [address] Gómez Mercer MD [facility] DR EDDIE [place] [address] 09/21/2024 2:45 PM EDT Office Visit Pain [place] [address] Trung Hoyos MD [facility] [place] [address] documented as of this encounter Visit Diagnoses Not on filedocumented in this encounter Care Teams Diamond Grader Relationship Specialty Start Date End Date Deacon Watters, PAINT BRUSH MAKER [address] [facility] 1 [place] [address] PCP - General Family Medicine 02/17/22 documented as of this encounter
--- OUTSIDE RECORDS SUMMARY | 2024-07-27 21:07 | XMS_ITS | Encounter Summary ---
Author Organization [facility] Address [facility] [place] [address] Care Team Providers Care Dry Cleaning Attendant Name Role Phone Duong Deacon Wells APRN Primary Care Provider [phone]- [phone] Encounter Details Date Type Department Care Team [...] Vascular Unit Level 4 [place] [address] Faheem Joy MD [facility] [place] [address] 08/15/2024 9:00 AM EDT Office [place] [address] Dion Barlow MD [facility] [place] [address] 09/01/2024 9:40 AM EDT Office Visit Cardiology at [address] [place] [address] Franky Shaver MD [facility] [place] [address] 09/01/2024 11:20 AM EDT Office Visit Dermatology at [facility] [address] [place] [address] Gómez Mercer MD [facility] [place] [address] 09/21/2024 2:45 PM EDT Office Visit [place] [address] Trung Hoyos MD [facility] [place] [address] documented as of this encounter Visit Diagnoses Not on filedocumented in this encounter Care Teams Dry Cleaning Attendant Relationship Specialty Start Date End Date Deacon Watters, [employer] [address] [facility] 1 [place] [address] PCP - General Family Medicine 02/17/22 documented as of this encounter
--- OUTSIDE RECORDS SUMMARY | 2024-07-27 21:08 | XMS_ITS | Encounter Summary ---
[place] [address] Care Team Providers Care School Adjustment Counselor Name Role Phone Maximilian Fall MD Primary Care Provider [phone] Encounter Details Date Type Department Care Team (Late st Contact Info) Description 04/25/2019 Telephone [place] [address] Brandy Durham Social History Tobacco Use Types [...] conditions (especially heart or lung)?:asthma BMI:30.53 Prep:proclear Infant Room Teacher?:yes Instructions to patient?:instructions to pt@4L/Exit~jhd documented in this encounter Plan of Treatment Upcoming Encounters Date Type Department Care Team (Late st Contact Info) Description 07/29/2024 Hospital Encounter Heart and Vascular Unit Level 4 [place] [address] Faheem Joy MD [facility] [place] [address] 08/15/2024 9:00 AM EDT Office Visit Gastroenterology at [address] Dion Barlow MD [facility] [place] [address] 09/01/2024 9:40 AM EDT Office Visit Cardiology at [address] [address] Franky Shaver MD [facility] [place] [address] 09/01/2024 11:20 AM EDT Office Visit Dermatology at [place] [address] [place] [address] Gómez Mercer MD [facility] DR [place] [address] 09/21/2024 2:45 PM EDT Office Visit Pain and Spine Center at [place] [phone] Trung Hoyos MD [facility] [place] [address] documented as of this encounter Visit Diagnoses Not on filedocumented in this encounter Care Teams School Adjustment Counselor Relationship Specialty Start Date End Date Maximilian Fall MD [address] [place] [address] PCP - General 10/01/11 02/13/21 documented as of this encounter
--- OUTSIDE RECORDS SUMMARY | 2024-07-27 21:08 | XMS_ITS | Encounter Summary ---
Author Organization [facility] [place] [address] Care Team Providers Care Strap Buckler Machine Name Role Phone Maximilian Fall MD Primary Care Provider [phone] Reason for Visit * Reason Onset Date Comments Prior Authorization 05/10/2018 Encounter Details Date Type Department Care Team (Late st Contact Info) Description 05/10/2018 Telephone [place] [address] Jarret Roa engineering mathematician Social History Tobacco Use Types Packs/Day Years [...] x 4 weeks Insurance & Phone #: [employer] D ID #: [id number] Trialed (dosage, frequency): hydrocortisone enemas (causes nausea), sulfasalazine, canasa (caused pelvic pain), cortifoam (manufacturing shortage), Asacol, Rowasa, prednisone Diagnosis/ICD-10: 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 Notes: Submitted via CoverMyMeds Approved documented in this encounter Plan of Treatment Upcoming Encounters Date Type Department Care Team (Late st Contact Info) Description 07/29/2024 Hospital Encounter Heart and Vascular Unit Level [place] [address] Faheem Joy MD [facility] [place] [address] 08/15/2024 9:00 AM EDT Office Visit Gastroenterology at [place] [phone] Dion Barlow MD [facility] [address] 09/01/2024 9:40 AM EDT Office Visit Cardiology at [address] [address] Franky Shaver MD [facility] [place] [address] 09/01/2024 11:20 AM EDT Office Visit Dermatology at [facility] [address] [place] [address] Gómez Mercer MD [facility] DR [place] [address] 09/21/2024 2:45 PM EDT Office Visit [place] [address] Trung Hoyos MD [facility] [place] [address] documented as of this encounter Visit Diagnoses Not on filedocumented in this encounter Care Teams Strap Buckler Machine Relationship Specialty Start Date End Date Maximilian Fall MD [address] [place] [address] PCP - General 10/01/11 02/13/21 documented as of this encounter
--- OUTSIDE RECORDS SUMMARY | 2024-07-27 21:08 | XMS_ITS | Encounter Summary ---
Author Organization [facility] Address [facility] [place] [address] Care Team Providers Care Light Rail Vehicle Operator Name Role Phone Maximilian Fall MD Primary Care Provider [phone] Encounter Details Date Type Department Care Team (Late st Contact Info) Description 04/28/2019 4:15 PM EDT - 04/28/2019 4:45 PM EDT Surgery [place] [address] Iza Coates MD [facility] [place] [address] EGD, UPPER GI ENDOSCOPY (WRVU 2.09) Social [...] Care Everywhere. * EGD (Upper Endoscopy): Post-op (Colombian) documented in this encounter Medications at [...] sedation) Iza Coates MD Gastroenterology attending Pager [phone] documented in this encounter Plan of Treatment Upcoming Encounters Date Type Department Care Team (Late st Contact Info) Description 07/29/2024 Hospital Encounter Heart and Vascular Unit Level [place] [address] Faheem Joy MD [facility] [place] [address] 08/15/2024 9:00 AM EDT Office Visit [place] [address] Dion Barlow MD [facility] [place] [address] 09/01/2024 9:40 AM EDT Office Visit Cardiology at [address] [place] [address] Franky Shaver MD [facility] [place] [address] 09/01/2024 11:20 AM EDT Office Visit Dermatology at [facility] [address] [place] [address] Gómez Mercer MD [facility] DR [place] [address] 09/21/2024 2:45 PM EDT Office Visit [facility] [place] [address] Trung Hoyos MD [facility] [place] [address] documented as of this encounter [...] MD PATHOLOGY/CYTOLOG Y ORDERABLES Performing Organization Address [facility] [place] [address] * Specimen to Pathology (04/28/2019 5:03 PM EDT) AP Specimen 04/28/2019 5:03 PM EDT 04/28/2019 5:03 PM EDT Narrative [facility] - 04/28/2019 5:03 PM EDT Specimen requisition ordered. ??Separate Pathology report to follow Iza Coates MD PATHOLOGY/CYTOLOG Y ORDERABLES Performing Organization Address [facility] de Phone Number [facility] [place] [address] * Surgical Pathology Report (04/28/2019 4:50 PM EDT) Final Diagnosis [id number] ? Location: 4T; EA10; A The signing pathologist has (i) examined the relevant preparation(s) for the specimen(s) and (ii) rendered or confirmed the diagnosis(es). . ?Surgical Pathology DIAGNOSIS A - Random duodenum, biopsy: Duodenal mucosa within normal limits, including preserved villous architecture. B - Fundic gland, polypectomy: Gastric fundic gland polyp. Electronically signed by: ??Joana Soler MD Verified: ??05/02/2019 ?Pathologist Performed at: ??-[facility] Dept. of Pathology, [place], [place] CLINICAL INFORMATION Specimen Submitted: A - [...] MD PATHOLOGY/CYTOLOG Y ORDERABLES [facility] [place] [address] * UPPER GI ENDOSCOPY (04/28/2019 4:39 PM EDT) UPPER GI ENDOSCOPY [facility] Endoscopy Procedure Date: 04/28/2019 4:39 PM ? Patient Name: Brian Rodriguez ? Date of : 1950 ? Age: 68 ? Order #: [id number] ? Instrument Name: [id number] ? Procedure: ? Upper GI endoscopy Indications: ? Abnormal CT of the GI tract (duodenal ? thickening) Providers: ? Iza Coates MD, Nohemi Ball, ? RN, Jonathan Ko, Commercial Fisherman Referring MD: ?Maximilian Fall MD Requesting Provider: [...] GENERAL SURGICAL ORD ERABLES Performing Organization Address [facility] de Phone Number [facility] * POCT Glucose (04/28/2019 3:46 PM EDT) Glucose, POC 91 65 - 199 mg/dL [facility] Comment: Supplemental ranges: <140 mg/dL before meals <180 mg/dL all other times of the day Blood specimen (specimen) 04/28/2019 3:46 PM EDT 04/28/2019 3:46 PM EDT Iza Coates MD POINT OF CARE KISHOR T ORDERABLES Performing Organization Address [facility] de Phone Number [facility] [place] [address] documented in this encounter Visit Diagnoses Diagnosis Left sided colitis without complications Left sided ulcerative (chronic) colitis documented in this encounter Administered Medications Inactive Administered Medications - up to 3 most recent administrations Medication Order MAR Action Action Date Dose Rate Site fentaNYL 50 mcg/mL multi-dose injection ONCE PRN, Starting on Tresa 04/28/19 at 1639, Until Tresa 04/28/19 at 2007, Intra-Operative (Intra-Procedure), Routine Given 04/28/2019 4:44 PM [...] RN) documented in this encounter Care Teams Light Rail Vehicle Operator Relationship Specialty Start Date End Date Maximilian Fall MD [address] [place] [address] PCP - General 10/01/11 02/13/21 documented as of this encounter
--- OUTSIDE RECORDS SUMMARY | 2024-07-27 21:08 | XMS_ITS | Encounter Summary ---
Author Organization [facility] Address [facility] [place] [address] Care Team Providers Care Kennel Manager Dog Track Name Role Phone Maximilian Fall MD Primary Care Provider [phone] Encounter Details Date Type Department Care Team (Latest Contact Info) Description 03/20/2020 10:00 AM EDT TH Visit (TeleHealth) [place] [address] Dion Osullivan MD [facility] [place] [address] Other ulcerative colitis with rectal bleeding Social [...] Overview Note: ?? Colonoscopy 04/08/10 (Dr. Gomes [facility]) - inflammation only within the rectum and sigmoid; extent of the exam was to the hepatic flexure; biopsies proximal to the sigmoid nl ?? Repeat exam 11/27/11 ([facility]): mildly active colitis in [...] apparently recommended by his urology team and [facility]. He reports for a UTI [...] past surgical history that includes Colonoscopy, Diagnostic (47447) (11/27/2011); Sigmoidoscopy, Diagnostic (48908) (03/16/2012); Upper Gi Endoscopy, Exam (94128) (10/01/2012); Colonoscopy, Diagnostic (80582) (07/13/2014); Colonoscopy, Biopsy (75415) (N/A, 02/12/2017); Colonoscopy, Biopsy (78303) (N/A, 02/22/2019); Colonoscopy, Remv Lesn, Snare ([id number]) (N/A, 02/22/2019); and Upper GI Endoscopy, Diagnostic ([id number]) (N/A, 04/28/2019). Family History: family history is [...] Would check C. Diff and lactoferrin at [facility]. Also, will call if diarrhea [...] with patient on above. Dion OSULLIVAN [place] [facility] [place] [address] documented in this encounter Plan of Treatment Upcoming Encounters Date Type Department Care Team (Late st Contact Info) Description 07/29/2024 Hospital Encounter Heart and Vascular Unit Level 4 [place] [address] Faheem Joy MD [facility] [place] [address] 08/15/2024 9:00 AM EDT Office Visit Gastroenterology at [place] [phone] Dion Osullivan MD [facility] [place] [address] 09/01/2024 9:40 AM EDT Office Visit Cardiology at [address] [place] [address] Franky Shaver MD [facility] [place] [address] 09/01/2024 11:20 AM EDT Office Visit Dermatology at [place] [address] [place] [address] Gómez Mercer MD [facility] DR EDDIE [place] [address] 09/21/2024 2:45 PM EDT Office Visit Pain and Spine Center at [place] [phone] Trung Hoyos MD [facility] [place] [address] documented as of this encounter Visit Diagnoses Diagnosis Other ulcerative colitis with rectal bleeding documented in this encounter Care Teams Kennel Manager Dog Track Relationship Specialty Start Date End Date Maximilian Fall MD [address] [facility] [place] [address] PCP - General 10/01/11 02/13/21 documented as of this encounter
--- OUTSIDE RECORDS SUMMARY | 2024-07-27 21:08 | XMS_ITS | Encounter Summary ---
Author Organization [facility] Address [facility] [place] [address] Care Team Providers Care Legal Billing Coordinator Name Role Phone Maximilian Fall MD Primary Care Provider [phone] Reason for Visit * Reason Comments Follow-up Encounter Details Date Type Department Care Team (Late st Contact Info) Description 05/11/2017 4:00 PM EDT Office [place] [address] Marcelle Weinberg, JAZMINE [facility] [place] [address] Ulcerative colitis without complications, unspecified location Social [...] ? Colonoscopy 04/08/10 (Dr. Gomes [facility]) - inflammation only within the rectum and sigmoid; extent of the exam was to the hepatic flexure; biopsies proximal to the sigmoid nl ?? Repeat exam 11/27/11 ([facility]): mildly active colitis [...] 3.66) performed by Dion Osullivan MD at [facility] ??? PRO COLONOSCOPY, DIAGNOSTIC 11/27/2011 COLONOSCOPY, DIAGNOSTIC performed by Dion OSULLIVAN at [facility] ??? PRO COLONOSCOPY, DIAGNOSTIC 07/13/2014 COLONOSCOPY, DIAGNOSTIC performed by Dion Osullivan MD at [facility] ??? PRO SIGMOIDOSCOPY, DIAGNOSTIC 03/16/2012 FLEXIBLE SIGMOIDOSCOPY performed by YUDI MALLOY at [facility] ??? UPPER GI ENDOSCOPY, EXAM 10/01/2012 UPPER GI ENDOSCOPY performed by Dion OSULLIVAN at [facility] Social History Social History ??? [...] 1140 ?? Resulting lab: [facility] ?? Value: [facility] Endoscopy Procedure Date: 02/12/2017 11:40 AM ? Patient Name: Brian Rodriguez ? Date of : 1950 ? Age: 66 ? Order #: [id number] ? Instrument Name: [id number] ? Procedure: ? Colonoscopy Indications: ? High risk colon cancer surveillance: ?Ulcerative colitis Patient Profile: ? This is a 66 year old male. This ?patient has left-sided ulcerative ?colitis on sulfasalazine and ?Cortifoam and is experiencing mild ?symptoms. Providers: ? L. Karthik Osullivan MD, Vandana Love ?RONY Mckeon, Sonal Segura, ?Production Welding Supervisor Referring MD: ?Maximilian Fall MD Medicines: [...] ?bowel preparation was evaluated using ?the BBPS ([place] Bowel Preparation ?Scale) with scores of: Right [...] Vascular Unit Level 4 [place] [address] Faheem Joy MD [facility] [address] 08/15/2024 9:00 AM EDT Office [place] [address] Dion Osullivan MD [facility] [place] [address] 09/01/2024 9:40 AM EDT Office Visit Cardiology at [address] [place] [phone] Franky Shaver MD [facility] [address] 09/01/2024 11:20 AM EDT Office Visit Dermatology at [facility] [address] [place] [address] Gómez Mercer MD [facility] DR EDDIE [place] [address] 09/21/2024 2:45 PM EDT Office Visit Pain and Spine Center at [facility] [place] [address] Trung Hoyos MD [facility] [place] [address] documented as of this encounter Procedures Procedure [...] 4:21 PM EDT) Neutrophil % 63.1 % [facility] Neutrophil Absolute 4.76 1.70 - 6.10 x10(3)/[facility] LAB[facility] Lymph % 25.0 % [facility] Lymphocytes Abs 1.9 0.9 - 3.2 x10(3)/[facility] LABOR[facility]ORY Monocyte % 7.6 % [facility] Monocyte Abs 0.6 0.3 - 0.9 x10(3)/[facility] LABORATORY Eos % 3.2 % [facility] Eosinophils Abs 0.2 0.0 - 0.4 x10(3)/[facility] LABORATORY Basophil % 0.7 % [facility] Baso Absolute 0.0 0.0 - 0.1 x10(3)/[facility] LABORATORY Immature Gran % 0.40 % [facility] Comment: Immature granulocytes(IG's)percentage and absolute count will include metamyelocytes, myelocytes, and promyelocytes. Blood smears from CBCs yielding IG's will be scanned manually for concordance. If this scan disagrees with the automated IG or if promyelocytes are noted, a manual differential will be performed. Immature Gran Absolute 0.03 0.00 - 0.04 x10(3)/[facility] Blood specimen (specimen) 05/11/2017 4:21 PM EDT 05/11/2017 4:29 PM EDT Narrative Resulting Agency Comment Spec In Lab Marcelle Weinberg PRODUCT SUPPORT MANAGER HEMATOLOGY ORDERA BLES [facility] [place] [place] [address] * (ABNORMAL) Hemogram (05/11/2017 4:21 PM EDT) [facility] White Blood Cell 7.5 4.0 - 9.5 [...] RDW Standard Deviation 44.6 36.0 - 45.0 [facility] LABORATORY [...] Agency Comment Spec In Lab Marcelle Weinberg PRODUCT SUPPORT MANAGER HEMATOLOGY ORDERA BLES Performing Organization Address City/[facility]/ZIP Co de Phone Number [facility] [place] [address] * CRP, acute inflammation (05/11/2017 4:21 PM EDT) C-Reactive Protein 2.3 <=4.9 mg/L [facility] Blood specimen (specimen) 05/11/2017 4:21 PM EDT 05/11/2017 4:29 PM EDT Narrative Resulting Agency Comment Spec In Lab Marcelle Weinberg PRODUCT SUPPORT MANAGER CHEMISTRY ORDERAB LES [facility] [place] [address] * (ABNORMAL) Sedimentation rate (05/11/2017 4:21 PM EDT) Sedimentation Rate Automated 19(H) 0 - 15 mm/hr [facility] Blood specimen (specimen) 05/11/2017 4:21 PM EDT 05/11/2017 4:29 PM EDT Narrative Resulting Agency Comment Spec In Lab MonalisaDg Weinberg PRODUCT SUPPORT MANAGER HEMATOLOGY ORDERA BLES [facility] [place] [address] * (ABNORMAL) CMP w/fasting Glucose (05/11/2017 4:21 [...] intervals supplied above were not validated at [facility]. Results from pediatric [...] the following links into your internet browser. [email or web address] Blood specimen (specimen) 05/11/2017 4:21 PM EDT 05/11/2017 4:29 PM EDT Narrative Resulting Agency Comment Spec In Lab Marcelle Weinberg PRODUCT SUPPORT MANAGER CHEMISTRY ORDERAB LES [facility] [place] [address] documented in this encounter Visit Diagnoses Diagnosis Ulcerative colitis without complications, unspecified location documented in this encounter Care Teams Legal Billing Coordinator Relationship Specialty Start Date End Date Maximilian Fall MD [address] [place] [address] PCP - General 10/01/11 02/13/21 documented as of this encounter
--- OUTSIDE RECORDS SUMMARY | 2024-07-27 21:08 | XMS_ITS | Encounter Summary ---
Author Organization [facility] [place] [address] Care Team Providers Care Wound Care Coordinator Name Role Phone Maximilian Fall MD Primary Care Provider [phone] Encounter Details Date Type Department Care Team (Late st Contact Info) Description 11/02/2018 [place] [address] Marcelle Weinberg, NETTING INSPECTOR [facility] [place] [address] Social History Tobacco Use Types Packs/Day Years [...] Notes * Telephone Encounter - Marcelle Weinberg, NETTING INSPECTOR - 11/02/2018 5:27 PM EST I called [...] Vascular Unit Level 4 [place] [address] Faheem Joy MD [facility] [place] [address] 08/15/2024 9:00 AM EDT Office [place] [address] Dion Barlow MD [facility] [place] [address] 09/01/2024 9:40 AM EDT Office Visit Cardiology at [address] [place] [address] Franky Shaver MD [facility] [place] [address] 09/01/2024 11:20 AM EDT Office Visit Dermatology at [facility] [address] [place] [address] Gómez Mercer MD [facility] DR [place] [address] 09/21/2024 2:45 PM EDT Office Visit Pain and Spine Center at [facility] [place] [address] Trung Hoyos MD [facility] [place] [address] documented as of this encounter Visit Diagnoses Not on filedocumented in this encounter Care Teams Wound Care Coordinator Relationship Specialty Start Date End Date Maximilian Fall MD [address] [place] [address] PCP - General 10/01/11 02/13/21 documented as of this encounter
--- OUTSIDE RECORDS SUMMARY | 2024-07-27 21:08 | XMS_ITS | Encounter Summary ---
Author Organization [facility] Address [facility] [place] [address] Care Team Providers Care Litigation Legal Assistant Name Role Phone Maximilian Fall MD Primary Care Provider [phone] Encounter Details Date Type Department Care Team (Late st Contact Info) Description 02/11/2019 Telephone [place] [address] Rachel Corral Social History Tobacco Use Types [...] - 02/11/2019 10:16 AM EDT Brian Rodriguez [id number] Diagnosis: Mercer 1. Have you ever had a colonoscopy before? [x] YES [] NO If Yes, Date of Last Mercer:_02/12/17 If yes, did you have any problems with the procedure? [] YES [x] NO Explain: What type of sedation was used: IV 2. Do you take any Blood Thinners? [] YES [x] NO If Yes, type: 3. Do you have a Pacemaker or Defibrillator device? [] YES [x] NO If Yes send [employer] message to [facility] DEVICE CHECK 4. Are you a [...] Vascular Unit Level 4 [place] [address] Faheem Joy MD [facility] [place] [address] 08/15/2024 9:00 AM EDT Office Visit Gastroenterology at [place] [phone] Dion Barlow MD [facility] [place] [address] 09/01/2024 9:40 AM EDT Office Visit Cardiology at [address] [address] Franky Shaver MD [facility] [place] [address] 09/01/2024 11:20 AM EDT Office Visit Dermatology at [address] [address] Gómez Mercer MD [facility] [place] [address] 09/21/2024 2:45 PM EDT Office Visit [place] [address] Trung Hoyos MD [facility] [place] [address] documented as of this encounter Visit Diagnoses Not on filedocumented in this encounter Care Teams Litigation Legal Assistant Relationship Specialty Start Date End Date Maximilian Fall MD [address] [place] [address] PCP - General 10/01/11 02/13/21 documented as of this encounter
--- OUTSIDE RECORDS SUMMARY | 2024-07-27 21:08 | XMS_ITS | Encounter Summary ---
Author Organization [facility] Address [facility] [place] [address] Care Team Providers Care Irrigator Overhead Name Role Phone Maximilian Fall MD Primary Care Provider [phone] Encounter Details Date Type Department Care Team (Latest Contact Info) Description 04/25/2019 10:00 AM EDT Office Visit [place] [address] Marcelle Weinberg APRN [facility] [place] [address] Left sided colitis without complications Social History [...] have it re read here at [facility] # Colonoscopy again spring 2020. # Avoid [...] 3.66) performed by Dion Osullivan MD at [facility] ??? PRO COLONOSCOPY, DIAGNOSTIC ?? 11/27/2011 ?? COLONOSCOPY, DIAGNOSTIC performed by Dion OSULLIVAN at [facility] ??? PRO COLONOSCOPY, DIAGNOSTIC ?? 07/13/2014 ?? COLONOSCOPY, DIAGNOSTIC performed by Dion Osullivan MD at [facility] ??? PRO SIGMOIDOSCOPY, DIAGNOSTIC ?? 03/16/2012 ?? FLEXIBLE SIGMOIDOSCOPY performed by YUDI MALLOY at [facility] ??? UPPER GI ENDOSCOPY, EXAM ?? 10/01/2012 ?? UPPER GI ENDOSCOPY performed by Dion OSULLIVAN at [facility] ? Social History ?? Socioeconomic [...] mg/L 5.0 (H) Surgical Pathology Report Unknown [id number] ... COLONOSCOPY Unknown [facility]... COLONOSCOPY COLONOSCOPY Collected: 02/22/19 [id number] Resulting lab: [facility] Value: [facility] Endoscopy Procedure Date: 02/22/2019 3:57 PM ? Patient Name: Brian Rodriguez ? Date of : 1950 ? Age: 68 ? Order #: [id number] ? Instrument Name: [id number] ? Procedure: ? Colonoscopy Indications: ? High [...] ?bowel preparation was evaluated using ?the BBPS ([place] Bowel Preparation ?Scale) with scores of: Right [...] Ana Verified: ??02/26/2019 ?Pathologist Performed at: ??-[facility] Dept. of Pathology, [place], [place] 03/07/19 CT abd/pelvis ( [facility]): Non [...] have it re read here at [facility] # Colonoscopy again spring 2020. # Avoid [...] Vascular Unit Level 4 [place] [address] Faheem Joy MD [facility] [place] [address] 08/15/2024 9:00 AM EDT Office Visit [place] [address] Dion Osullivan MD [facility] [place] [address] 09/01/2024 9:40 AM EDT Office Visit Cardiology at [address] [place] [phone] Franky Shaver MD [facility] [place] [address] 09/01/2024 11:20 AM EDT Office Visit Dermatology at [facility] [address] [place] [address] Gómez Mercer MD [facility] [place] [address] 09/21/2024 2:45 PM EDT Office Visit [facility] [place] [address] Trung Hoyos MD [facility] [address] Scheduled Orders Name Type Priority Associated Diagnoses [...] 12:00 PM EDT) Neutrophil % 66.3 % [facility] Neutrophil Absolute 4.90 1.70 - 6.10 x10(3)/[facility] LABORATORY Lymph % 24.0 % [facility] Lymphocytes Abs 1.8 0.9 - 3.2 x10(3)/[facility] LABORATORY Monocyte % 6.8 % [facility] Monocyte Abs 0.5 0.3 - 0.9 x10(3)/[facility] LABORATORY Eos % 2.0 % [facility] Eosinophils Abs 0.2 0.0 - 0.4 x10(3)/[facility] LABORATORY Basophil % 0.5 % [facility] Baso Absolute 0.0 0.0 - 0.1 x10(3)/[facility] LABORATORY Immature Gran % 0.40 % [facility] Comment: Immature granulocytes(IG's)percentage and absolute count will include metamyelocytes, myelocytes, and promyelocytes. Blood smears from CBCs yielding IG's will be scanned manually for concordance. If this scan disagrees with the automated IG or if promyelocytes are noted, a manual differential will be performed. Immature Gran Absolute 0.03 0.00 - 0.04 x10(3)/[facility] LABORATORY Blood specimen (specimen) 04/25/2019 12:00 PM EDT 04/25/2019 12:03 PM EDT Narrative Resulting Agency Comment Spec In Lab Marcelle Weinberg INSULATION CUPOLA OPERATOR HEMATOLOGY ORDERA BLES [facility] [place] [address] * (ABNORMAL) Hemogram (04/25/2019 12:00 PM EDT) White Blood Cell 7.4 4.0 - 9.5 x10(3)/[facility] LABORATORY Red Blood Cell 4.22(L) 4.58 - 5.54 x10(6)/[facility] LABORATORY Hemoglobin 13.7 13.7 - 16.5 gm/dL [facility] Hematocrit 41.9 40.5 - 48.5 % [facility] Mean Cell Volume 99.3(H) 82.9 - 93.1 fL [facility] Mean Cell Hemoglobin 32.5(H) 27.5 - 32.1 pg [facility] Mean Cell Hemoglobin Concentration 32.7 32.0 - 35.7 gm/dL [facility] Platelet 239 145 - 357 x10(3)/[facility] LABORATORY RDW Standard Deviation 45.9(H) 36.0 - 45.0 [facility] LAB[facility] RDW coefficient of variation 12.6 11.4 - 13.8 % [facility] Mean Platelet Volume 11.0 7.6 - 12.9 [facility] LABOR[facility]ORY NRBC% auto 0.0 % [facility] NRBC Absolute 0.000 0.000 - 0.000 x10(3)/[facility] LABORATORY Blood specimen (specimen) 04/25/2019 12:00 PM EDT 04/25/2019 12:03 PM EDT Narrative Resulting Agency Comment Spec In Lab Marcelle Weinberg INSULATION CUPOLA OPERATOR HEMATOLOGY ORDERA BLES [facility] [place] [address] * CRP, acute inflammation (04/25/2019 12:00 PM EDT) C-Reactive Protein 2.5 <=4.9 mg/L [facility] Blood specimen (specimen) 04/25/2019 12:00 PM EDT 04/25/2019 12:03 PM EDT Narrative Resulting Agency Comment Spec In Lab Marcelle Conte Sultana INSULATION CUPOLA OPERATOR CHEMISTRY ORDERAB LES Performing Organization Address City/[facility]/ZIP Co de Phone Number [facility] [place] [address] * (ABNORMAL) Sedimentation rate (04/25/2019 12:00 PM EDT) Sedimentation Rate Automated 28(H) 0 - 15 mm/hr [facility] Blood specimen (specimen) 04/25/2019 12:00 PM EDT 04/25/2019 12:03 PM EDT Narrative Resulting Agency Comment Spec In Lab Marcelle Conte Sultana INSULATION CUPOLA OPERATOR HEMATOLOGY ORDERA BLES Performing Organization Address [facility]/ZIP Co de Phone Number [facility] [place] [address] * (ABNORMAL) Comprehensive metabolic panel (non-fasting) (04/25/2019 12:00 PM EDT) Glucose 84 65 - 199 mg/dL [facility] Comment:Diabetes: >=200 mg/d L plus symptoms Blood Urea Nitrogen 15 10 - 20 mg/dL [facility] Creatinine 1.14 0.80 - 1.50 mg/dL [facility] Sodium 140 135 - 145 mmol/L [facility] Potassium 4.8 3.5 - 5.0 mmol/L [facility] Comment: Please note: ??Patients with WBC >100,000 may have falsely elevated Potassium levels. ??For accurate Potassium quantification in these patients send serum separator tube (gold top) for subsequent determinations. ??Contact the Clinical Chemistry Laboratory if there are any questions. Chloride 104 98 - 107 mmol/L [facility] Carbon Dioxide 25 22 - 31 mmol/L [facility] Anion Gap 11 5 - 15 mmol/L [facility] Calcium 9.8 8.5 - 10.5 mg/dL [facility] Protein, Total 8.5(H) 6.1 - 8.0 gm/dL [facility] Albumin 4.4 3.2 - 5.2 gm/dL [facility] Aspartate Aminotransferase 12 0 - 39 unit/L [facility] Alanine Aminotransferase 14 0 - 55 unit/L [facility] Alkaline Phosphatase 70 40 - 120 unit/L [facility] Bilirubin, Total 0.4 0.2 - 1.3 mg/dL [facility] Est Glomerular Filtration Rate 65 >=60 mL/min/1. 73 m?? [facility] Comment: The eGFR was calculated using the CKD-EPI equation. As with all creatinine based estimates of kidney function, eGFR values calculated with the CKD-EPI equation are not accurate in patients with acute kidney failure, extremes of body mass or the acutely ill. [email or web address] eGFR 75 >=60 mL/min/1. 73 m?? [facility] Comment: The eGFR was calculated using the CKD-EPI equation. As with all creatinine based estimates of kidney function, eGFR values calculated with the CKD-EPI equation are not accurate in patients with acute kidney failure, extremes of body mass or the acutely ill. [email or web address] Blood specimen (specimen) 04/25/2019 12:00 PM EDT 04/25/2019 12:03 PM EDT Narrative Resulting Agency Comment Spec In Lab Marcelle Weinberg INSULATION CUPOLA OPERATOR CHEMISTRY ORDERAB LES [facility] [place] [address] documented in this encounter Visit Diagnoses Diagnosis Left sided colitis without complications Left sided ulcerative (chronic) colitis documented in this encounter Care Teams Irrigator Overhead Relationship Specialty Start Date End Date Maximilian Fall MD [address] [place] [address] PCP - General 10/01/11 02/13/21 documented as of this encounter
--- OUTSIDE RECORDS SUMMARY | 2024-07-27 21:08 | XMS_ITS | Encounter Summary ---
Author Organization [facility] Address [facility] [place] [address] Care Team Providers Care Forge Operator Helper Name Role Phone Maximilian Fall MD Primary Care Provider [phone] Encounter Details Date Type Department Care Team (Late st Contact Info) Description 02/22/2019 3:30 PM EDT - 02/22/2019 4:15 PM EDT Surgery [place] [address] Dion Barlow MD [facility] [place] [address] COLONOSCOPY FLEXIBLE, WITH BX (WRVU 3.56) Social [...] - 02/22/2019 5:05 PM EDT Please call [phone] before 8pm Mon-Fri with problems, questions or concerns. If you call after 8pm or on weekends, call the Hospital at [phone] and ask to speak to the Tobacco Educator conference coordinator and the drill setup operator will contact that person for [...] Vascular Unit Level 4 [place] [address] Faheem Joy MD [facility] [place] [address] 08/15/2024 9:00 AM EDT Office Visit [place] [address] Dion Barlow MD [facility] [place] [address] 09/01/2024 9:40 AM EDT Office Visit Cardiology at [address] [place] [phone] Franky Shaver MD [facility] [place] [address] 09/01/2024 11:20 AM EDT Office Visit Dermatology at [facility] [address] [place] [phone] Gómez Mercer MD [facility] [place] [address] 09/21/2024 2:45 PM EDT Office Visit [facility] [place] [address] Trung Hoyos MD [facility] [place] [address] documented as of this encounter Procedures Procedure [...] PM EDT 02/22/2019 4:56 PM EDT Narrative [facility] - 02/22/2019 4:56 PM EDT Specimen requisition ordered. ??Separate Pathology report to follow L Karthik Barlow MD PATHOLOGY/CYTOLOGY O CEE Performing Organization Address [facility] Co de Phone Number [facility] [place] [address] * Specimen to Pathology (02/22/2019 4:56 PM EDT) AP Specimen 02/22/2019 4:56 PM EDT 02/22/2019 4:56 PM EDT Narrative [facility] - 02/22/2019 4:56 PM EDT Specimen requisition ordered. ??Separate Pathology report to follow L Karthik Barlow MD PATHOLOGY/CYTOLOGY O CEE Performing Organization Address [facility] Co de Phone Number [facility] [place] [address] * Specimen to Pathology (02/22/2019 4:56 PM EDT) AP Specimen 02/22/2019 4:56 PM EDT 02/22/2019 4:56 PM EDT Narrative [facility] - 02/22/2019 4:56 PM EDT Specimen requisition ordered. ??Separate Pathology report to follow L Karthik Barlow MD PATHOLOGY/CYTOLOGY O CEE Performing Organization Address [facility] [place] [address] * Specimen to Pathology (02/22/2019 4:56 PM EDT) AP Specimen 02/22/2019 4:56 PM EDT 02/22/2019 4:56 PM EDT Narrative [facility] - 02/22/2019 4:56 PM EDT Specimen requisition ordered. ??Separate Pathology report to follow L Karthik Barlow MD PATHOLOGY/CYTOLOGY O CEE Performing Organization Address [facility] [place] [address] * Specimen to Pathology (02/22/2019 4:56 PM EDT) AP Specimen 02/22/2019 4:56 PM EDT 02/22/2019 4:56 PM EDT Narrative [facility] - 02/22/2019 4:56 PM EDT Specimen requisition ordered. ??Separate Pathology report to follow L Karthik Barlow MD PATHOLOGY/CYTOLOGY O CEE Performing Organization Address [facility] [place] [address] * Specimen to Pathology (02/22/2019 4:56 PM EDT) AP Specimen 02/22/2019 4:56 PM EDT 02/22/2019 4:56 PM EDT Narrative [facility] - 02/22/2019 4:56 PM EDT Specimen requisition ordered. ??Separate Pathology report to follow L Karthik Barlow MD PATHOLOGY/CYTOLOGY O CEE Performing Organization Address [facility] Co de Phone Number [facility] [place] [address] * Specimen to Pathology (02/22/2019 4:56 PM EDT) AP Specimen 02/22/2019 4:56 PM EDT 02/22/2019 4:56 PM EDT Narrative [facility] - 02/22/2019 4:56 PM EDT Specimen requisition ordered. ??Separate Pathology report to follow L Karthik Barlow MD PATHOLOGY/CYTOLOGY O CEE Performing Organization Address [facility] Co de Phone Number [facility] [place] [address] * Specimen to Pathology (02/22/2019 4:56 PM EDT) AP Specimen 02/22/2019 4:56 PM EDT 02/22/2019 4:56 PM EDT Narrative [facility] - 02/22/2019 4:56 PM EDT Specimen requisition ordered. ??Separate Pathology report to follow L Karthik Barlow MD PATHOLOGY/CYTOLOGY O CEE Performing Organization Address [facility] de Phone Number [facility] [place] [address] * Surgical Pathology Report (02/22/2019 4:23 PM EDT) Pathologist [facility] Final Diagnosis [id number] ? Location: 4T; EA06; A The signing [...] [facility] Dept. of Pathology, [place], [place] CLINICAL INFORMATION Specimen Submitted: A - [...] cm. . SPECIMEN PROCESSING Tissue Description: Soft, setphen-pink tissues. Sections/Process ing: Submitted en toto ??in [...] labeled H1-H2. ??apb 02/26/2019 4:24 PM EDT [facility] GI Biopsy 02/22/2019 4:23 [...] PATHOLOGY/CYTOLOGY O RDERABLES [facility] [place] [address] * COLONOSCOPY (02/22/2019 3:57 PM EDT) COLONOSCOPY [facility] Endoscopy ___ Procedure Date: 02/22/2019 3:57 PM ? Patient Name: Brian Rodriguez ? Date of : 1950 ? Age: 68 ? Order #: [id number] ? Instrument Name: [id number] ? ___ Procedure: ? Colonoscopy Indications: ? High risk colon cancer surveillance: ? Ulcerative colitis Patient Profile: ? This is a 68 year old male. This ? patient has left-sided ulcerative ? colitis, is taking sulfasalazine and ? cortenemas and is experiencing mild ? symptoms. Providers: ? L. Karthik Barlow MD, Alannah Singletary, ? RN, Anita Maynard MD: ?Maximilian Fall MD Medicines: [...] preparation was evaluated using ? the BBPS ([place] Bowel Preparation ? Scale) with scores of: [...] mcg/mL multi-dose injection ONCE PRN, Starting on 02/22/19 at 1610, Until Tu02/22/19 at 1926, Intra-Operative (Intra-Procedure), Routine Given 02/22/2019 4:27 PM EDT 25 mcg Right Arm Given 02/22/2019 4:20 PM EDT 25 mcg Ri ght Arm Given 02/22/2019 4:13 PM EDT 50 mcg Ri ght Arm midazolam (PF) (VERSED) multi-dose injection ONCE PRN, Starting on 02/22/19 at 1610, Until 02/22/19 at 1926, Intra-Operative (Intra-Procedure), Routine Given 02/22/2019 [...] PRN, Starting on 02/22/19 at 1610, Until 02/22/19 at 1926, Intra-Operative (Intra-Procedure), Routine 1610 (Given - Provid er: Alannah Singletary RN)1613 (Given - Provider: Alannah Singletary RN)1620 (Given - Provider: Alannah Singletary RN)1627 (Given - Provider: Alannah Singletary RN) midazolam (PF) (VERSED) multi-dose injection (CANCELED) ONCE PRN, Starting on 02/22/19 at 1610, Until 02/22/19 at 1926, Intra-Operative (Intra-Procedure), Routine 1610 (Given - Provid er: Alannah Singletary RN)1613 (Given - Provider: Alannah Singletary RN)1620 (Given - Provider: Alannah Singletary RN)1628 (Given - Provider: Alannah Singletary RN) documented in this encounter Care Teams Forge Operator Helper Relationship Specialty Start Date End Date Maximilian Fall MD [address] [place] [address] PCP - General 10/01/11 02/13/21 documented as of this encounter
--- OUTSIDE RECORDS SUMMARY | 2024-07-27 21:08 | XMS_ITS | Encounter Summary ---
Author Organization [facility] Address [facility] [place] [address] Care Team Providers Care Composing Machine Operator Name Role Phone Maximilian Fall MD Primary Care Provider [phone] Encounter Details Date Type Department Care Team (Latest Contact Info) Description 09/12/2019 3:40 PM EDT Office [place] [phone] Dion Barlow MD [facility] [place] [address] Left sided colitis without complications Social History [...] IBD History: ?? Colonoscopy 04/08/10 (Dr. Gomes [facility]) - inflammation only within the rectum and [...] ??? UPPER GI ENDOSCOPY 04/28/2019 Final Value:[facility] Endoscopy Procedure Date: 04/28/2019 4:39 PM Patient Name: Brian Rodriguez Date of : 1950 Age: 68 Order #: [id number] Instrument Name: [id number] Procedure: Upper GI endoscopy Indications: Abnormal CT of the GI tract (duodenal thickening) Providers: Iza Coates MD, Nohemi Ball RN, Jonathan Ko, Special Crimes Investigator Referring MD: Maximilian Fall MD Requesting Provider: [...] PM ??? Surgical Pathology Report 04/28/2019 Final Value:[id number] Location: 4T; [facility]; A The signing pathologist has (i) examined the relevant preparation(s) for the specimen(s) and (ii) rendered or confirmed the diagnosis(es). . Surgical Pathology DIAGNOSIS A - Random duodenum, biopsy: Duodenal mucosa within normal limits, including preserved villous architecture. B - Fundic gland, polypectomy: Gastric fundic gland polyp. Electronically signed by: Joana Soler MD Verified: 05/02/2019 Pathologist Performed at: -[facility] Dept. of Pathology, [place], [place] CLINICAL INFORMATION Specimen Submitted: A - [...] patient. Anthony Hamlin MD [place] [address] ATTENDING ADDENDUM I interviewed and examined Brian [...] sulfasalazine. 15 min of this 20 min [id number] visit was spent counseling the patient in the issues outlined above. Davina Barlow MD Mail Officerlithoplate maker Co-Director, [facility] Section of Gastroenterology [place] [address] documented in this encounter Plan of Treatment Upcoming Encounters Date Type Department Care Team (Late st Contact Info) Description 07/29/2024 Hospital Encounter Heart and Vascular Unit Level 4 Wing A at [place] [phone] Faheem Joy MD [facility] [place] [address] 08/15/2024 9:00 AM EDT Office Visit Gastroenterology at [place] [phone] Dion Barlow MD [facility] [place] [address] 09/01/2024 9:40 AM EDT Office Visit Cardiology at [address] [address] Franky Shaver MD [facility] [place] [address] 09/01/2024 11:20 AM EDT Office Visit Dermatology at [address] [address] Gómez Mercer MD [facility] DR EDDIE [place] [address] 09/21/2024 2:45 PM EDT Office Visit [place] [address] Trung Hoyos MD [facility] [place] [address] documented as of this encounter Visit Diagnoses Diagnosis Left sided colitis without complications Left sided ulcerative (chronic) colitis documented in this encounter Care Teams Composing Machine Operator Relationship Specialty Start Date End Date Maximilian Fall MD [address] [place] [address] PCP - General 10/01/11 02/13/21 documented as of this encounter
--- OUTSIDE RECORDS SUMMARY | 2024-07-27 21:08 | XMS_ITS | Encounter Summary ---
Author Organization [facility] [place] [address] Care Team Providers Care Morning News Anchor Name Role Phone Maximilian Fall MD Primary Care Provider [phone] Encounter Details Date Type Department Care Team (Late st Contact Info) Description 11/10/2018 Telephone [place] [address] [place] Social History Tobacco Use Types [...] Vascular Unit Level [place] [address] Faheem Joy MD [facility] [place] [address] 08/15/2024 9:00 AM EDT Office Visit Gastroenterology at [place] [phone] Dion Barlow MD [facility] [place] [address] 09/01/2024 9:40 AM EDT Office Visit Cardiology at [address] [phone] Franky Shaver MD [facility] [place] [address] 09/01/2024 11:20 AM EDT Office Visit Dermatology at [place] [address] [place] [phone] Gómez Mercer MD [facility] DR ED[place] [address] 09/21/2024 2:45 PM EDT Office Visit [facility] and Spine Center at [place] [phone] Trung Hoyos MD [facility] [place] [address] documented as of this encounter Visit Diagnoses Not on filedocumented in this encounter Care Teams Morning News Anchor Relationship Specialty Start Date End Date Maximilian Fall MD [address] [place] [address] PCP - General 10/01/11 02/13/21 documented as of this encounter
--- OUTSIDE RECORDS SUMMARY | 2024-07-27 21:08 | XMS_ITS | Encounter Summary ---
Author Organization [facility] Address [facility] [place] [address] Care Team Providers Care Corporate Securities Research Analyst Name Role Phone Maximilian Fall MD Primary Care Provider [phone] Encounter Details Date Type Department Care Team (Late st Contact Info) Description 03/01/2020 Telephone [place] [address] Suzanne Guillermo Social History Tobacco [...] Heart and Vascular Unit Level 4 [place] [address] Faheem Joy MD [facility] [place] [address] 08/15/2024 9:00 AM EDT Office [place] [phone] Dion Barlow MD [facility] [place] [address] 09/01/2024 9:40 AM EDT Office Visit Cardiology at [address] [place] [address] Franky Shaver MD [facility] [place] [address] 09/01/2024 11:20 AM EDT Office Visit Dermatology at [address] [place] [phone] Gómez Mercer MD [facility] [place] [address] 09/21/2024 2:45 PM EDT Office Visit [facility] [place] [phone] Trung Hoyos MD [facility] [place] [address] documented as of this encounter Visit Diagnoses Not on filedocumented in this encounter Care Teams Corporate Securities Research Analyst Relationship Specialty Start Date End Date Maximilian Fall MD [address] [facility] [place] [address] PCP - General 10/01/11 02/13/21 documented as of this encounter
--- OUTSIDE RECORDS SUMMARY | 2024-07-27 21:08 | XMS_ITS | Encounter Summary ---
Author Organization [facility] Address [facility] [place] [address] Care Team Providers Care Manager Of Drilling Name Role Phone Maximilian Fall MD Primary Care Provider [phone] Encounter Details Date Type Department Care Team (Latest Contact Info) Description 11/02/2018 1:00 PM EST Office [place] [address] [facility] [place] [address] Left sided colitis without complications Social History [...] Overview Note:? Colonoscopy 04/08/10 (Dr. Gomes [facility]) - inflammation only within the rectum and sigmoid; extent of the exam was to the hepatic flexure; biopsies proximal to the sigmoid nl ?? Repeat exam 11/27/11 ([facility]): mildly active colitis in the sigmoid colon [...] underwent left inguinal hernia repair at [facility] 2 weeks ago. Once he [...] Dion Osullivan MD at [facility] ??? PRO COLONOSCOPY, DIAGNOSTIC 11/27/2011 COLONOSCOPY, DIAGNOSTIC performed by Dion OSULLIVAN at [facility] ??? PRO COLONOSCOPY, DIAGNOSTIC 07/13/2014 COLONOSCOPY, DIAGNOSTIC performed by Dion Osullivan MD at [facility] ??? PRO SIGMOIDOSCOPY, DIAGNOSTIC 03/16/2012 FLEXIBLE SIGMOIDOSCOPY performed by YUDI MALLOY at [facility] ??? UPPER GI ENDOSCOPY, EXAM 10/01/2012 UPPER GI ENDOSCOPY performed by Dion OSULLIVAN at [facility] Social History Socioeconomic History ??? [...] Vascular Unit Level 4 [place] [address] [facility] [address] 08/15/2024 9:00 AM EDT Office [place] [address] [facility] [place] [address] 09/01/2024 9:40 AM EDT Office Visit Cardiology at [address] [address] [facility] CARDIOLOGY [place], [place] [id number] 09/01/2024 11:20 AM EDT Office Visit Dermatology at [address] [address]z Mer[address] [facility] DR [place] [address] 09/21/2024 2:45 PM EDT Office Visit [facility] [place] [address] [facility] [place] [address] documented as of this encounter Procedures Procedure [...] 2:35 PM EST) Neutrophil % 61.6 % [facility] Neutrophil Absolute 4.08 1.70 - 6.10 x10(3)/[facility] LAB[facility]AT[facility] Lymph % 27.2 % [facility] Lymphocytes Abs 1.8 0.9 - 3.2 x10(3)/[facility] LABORATORY Monocyte % 6.9 % [facility] Monocyte Abs 0.5 0.3 - 0.9 x10(3)/[facility] LABORATORY Eos % 2.9 % [facility] Eosinophils Abs 0.2 0.0 - 0.4 x10(3)/[facility] LABORATORY Basophil % 0.8 % [facility] Baso Absolute 0.0 0.0 - 0.1 x10(3)/[facility] LABORATORY Immature Gran % 0.60 % [facility] Comment: Immature granulocytes(IG's)percentage and absolute count will include metamyelocytes, myelocytes, and promyelocytes. Blood smears from CBCs yielding IG's will be scanned manually for concordance. If this scan disagrees with the automated IG or if promyelocytes are noted, a manual differential will be performed. Immature Gran Absolute 0.04 0.00 - 0.04 x10(3)/[facility] LABORATORY Blood specimen (specimen) 11/02/2018 2:35 PM EST 11/02/2018 2:42 PM EST Narrative Resulting Agency Comment Spec In Lab Marcelle Dunnjeovannyjania SEATER ASSEMBLER HEMATOLOGY ORDERA BLES [facility] [place] [address] * (ABNORMAL) Hemogram (11/02/2018 2:35 PM EST) White Blood Cell 6.6 4.0 - 9.5 x10(3)/mc L [facility] Red Blood Cell 4.08(L) 4.58 - 5.54 x10(6)/mc L [facility] Hemoglobin 13.1(L) 13.7 - 16.5 gm/dL [facility] Hematocrit 40.0(L) 40.5 - 48.5 % [facility] Mean Cell Volume 98.0(H) 82.9 - 93.1 [facility] Mean Cell Hemoglobin 32.1 27.5 - 32.1 pg [facility] Mean Cell Hemoglobin Concentration 32.8 32.0 - 35.7 gm/dL [facility] Platelet 236 145 - 357 x10(3)/mc L [facility] RDW Standard Deviation 44.3 36.0 - 45.0 [facility] RDW coefficient of variation 12.3 11.4 - 13.8 % [facility] Mean Platelet Volume 10.6 7.6 - 12.9 [facility] NRBC% auto 0.0 % [facility] NRBC Absolute 0.000 0.000 - 0.000 x10(3)/ L [facility] Blood specimen (specimen) 11/02/2018 2:35 PM EST 11/02/2018 2:42 PM EST Narrative Resulting Agency Comment Spec In Lab Marcelle Dunnjeovannyjania SEATER ASSEMBLER HEMATOLOGY ORDERA BLES [facility] [place] [address] * (ABNORMAL) CRP, acute inflammation (11/02/2018 2:35 PM EST) Pathologist [facility] C-Reactive Protein 5.0(H) <=4.9 mg/L [facility] Blood specimen (specimen) 11/02/2018 2:35 PM EST 11/02/2018 2:42 PM EST Narrative Resulting Agency Comment Spec In Lab Marcelle Conte Dg Weinberg SEATER ASSEMBLER CHEMISTRY ORDERAB LES Performing Organization Address [facility] Co de Phone Number [facility] [place] [address] * (ABNORMAL) Sedimentation rate (11/02/2018 2:35 PM EST) [facility] Sedimentation Rate Automated 27(H) 0 - 15 mm/hr [facility] Blood specimen (specimen) 11/02/2018 2:35 PM EST 11/02/2018 2:42 PM EST Narrative Resulting Agency Comment Spec In Lab Marcelle Conte Dg Weinberg SEATER ASSEMBLER HEMATOLOGY ORDERA BLES Performing Organization Address [facility] Co de Phone Number [facility] [address] * (ABNORMAL) Comprehensive metabolic panel (non-fasting) (11/02/2018 2:35 PM EST) [facility] Glucose 87 65 - 199 mg/dL [facility] Comment:Diabetes: >=200 mg/d L plus symptoms Blood Urea Nitrogen 15 10 - 20 mg/dL [facility] Creatinine 1.03 0.80 - 1.50 mg/dL [facility] Sodium 140 135 - 145 mmol/L [facility] Potassium 4.3 3.5 - 5.0 mmol/L [facility] Comment: Please note: ??Patients with WBC >100,000 may have falsely elevated Potassium levels. ??For accurate Potassium quantification in these patients send serum separator tube (gold top) for subsequent determinations. ??Contact the Clinical Chemistry Laboratory if there are any questions. Chloride 103 98 - 107 mmol/L [facility] Carbon Dioxide 26 22 - 31 mmol/L [facility] Anion Gap 11 5 - 15 mmol/L [facility] Calcium 9.7 8.5 - 10.5 mg/dL [facility] Protein, Total 8.1(H) 6.1 - 8.0 gm/dL [facility] Albumin 4.0 3.2 - 5.2 gm/dL [facility] Aspartate Aminotransferase 12 0 - 39 unit/L [facility] Alanine Aminotransferase 14 0 - 55 unit/L [facility] Alkaline Phosphatase 73 40 - 120 unit/L [facility] Bilirubin, Total 0.4 0.2 - 1.3 mg/dL [facility] Est Glomerular Filtration Rate 73 >=60 mL/min/1. 73 m?? [facility] Comment: The eGFR was calculated using the CKD-EPI equation. As with all creatinine based estimates of kidney function, eGFR values calculated with the CKD-EPI equation are not accurate in patients with acute kidney failure, extremes of body mass or the acutely ill. http://adaffix/DHMCnkf eGFR 85 >=60 mL/min/1. 73 m?? [facility] Comment: The eGFR was calculated using the CKD-EPI equation. As with all creatinine based estimates of kidney function, eGFR values calculated with the CKD-EPI equation are not accurate in patients with acute kidney failure, extremes of body mass or the acutely ill. http://[email or web address]/[email or web address] Blood specimen (specimen) 11/02/2018 2:35 PM EST 11/02/2018 2:42 PM EST Narrative Resulting Agency Comment Spec In Lab Marcelle Weinberg SEATER ASSEMBLER CHEMISTRY ORDERAB LES [facility] [place] [address] documented in this encounter Visit Diagnoses Diagnosis Left sided colitis without complications Left sided ulcerative (chronic) colitis documented in this encounter Care Teams Manager Of Drilling Relationship Specialty Start Date End Date Maximilian Fall MD [address] [place] [address] PCP - General 10/01/11 02/13/21 documented as of this encounter
--- OUTSIDE RECORDS SUMMARY | 2024-07-27 21:08 | XMS_ITS | Encounter Summary ---
Author Organization [facility] Address [facility] [place] [address] Care Team Providers Care Specimen Accessioner Name Role Phone Maximilian Fall MD Primary Care Provider [phone] Encounter Details Date Type Department Care Team (Latest Contact Info) Description 05/09/2019 10:20 AM EDT Office Visit [place] [address] Dion Barlow MD [facility] [place] [address] Left sided colitis without complications Social History [...] ? Overview Note:? Colonoscopy 04/08/10 (Dr. Gomes [facility]) - inflammation only within the rectum and sigmoid; extent of the exam was to the hepatic flexure; biopsies proximal to the sigmoid nl ?? Repeat exam 11/27/11 ([facility] mildly active colitis in the sigmoid colon [...] needed 20 min of this 25 min [id number] visit was spent counseling the patient in the issues outlined above. Davina Barlow MD Inker And Opaquerprint line operator Co-Director, [facility] Section [place] [address] documented in this encounter Plan of Treatment Upcoming Encounters Date Type Department Care Team (Late st Contact Info) Description 07/29/2024 Hospital Encounter Heart and Vascular Unit Level 4 [place] [address] Faheem Joy MD [facility] [place] [address] 08/15/2024 9:00 AM EDT Office Visit [place] [address] Dion Barlow MD [facility] [place] [address] 09/01/2024 9:40 AM EDT Office Visit Cardiology at [address] [place] [address] Franky Shaver MD [facility] [place] [address] 09/01/2024 11:20 AM EDT Office Visit Dermatology at [address] [place] [address] Gómez Mercer MD [facility] DR [place] [address] 09/21/2024 2:45 PM EDT Office Visit Pain [place] [address] Trung Hoyos MD [facility] [place] [address] documented as of this encounter Visit Diagnoses Diagnosis Left sided colitis without complications Left sided ulcerative (chronic) colitis documented in this encounter Care Teams Specimen Accessioner Relationship Specialty Start Date End Date Maximilian Fall MD [address] [place] [address] PCP - General 10/01/11 02/13/21 documented as of this encounter
--- OUTSIDE RECORDS SUMMARY | 2024-07-27 21:08 | XMS_ITS | Encounter Summary ---
Author Organization [facility] [place] [address] Care Team Providers Care Family Service Caseworker Name Role Phone Maximilian Fall MD Primary Care Provider [phone] Reason for Visit * Reason Onset Date Comments Medication Refill 05/03/2018 Encounter Details Date Type Department Care Team (Late st Contact Info) Description 05/03/2018 Refill [place] [address] Bethany Trivedi, RN Social History [...] Unit Level 4 [place] [address] Faheem Joy MD [facility] [place] [address] 08/15/2024 9:00 AM EDT Office Visit [place] [address] Dion Barlow MD [facility] [place] [address] 09/01/2024 9:40 AM EDT Office Visit Cardiology at [address] [place] [address] Franky Shaver MD [facility] [place] [address] 09/01/2024 11:20 AM EDT Office Visit Dermatology at [facility] [address] [place] [address] Gómez Mercer MD [facility] [place] [address] 09/21/2024 2:45 PM EDT Office Visit Pain and Spine Center at [facility] [place] [address] Trung Hoyos MD [facility] [place] [address] documented as of this encounter Visit Diagnoses Not on filedocumented in this encounter Care Teams Family Service Caseworker Relationship Specialty Start Date End Date Maximilian Fall MD [address] [facility] 1 [place] [address] PCP - General 10/01/11 02/13/21 documented as of this encounter
--- OUTSIDE RECORDS SUMMARY | 2024-07-27 21:08 | XMS_ITS | Encounter Summary ---
Author Organization [facility] [place] [address] Care Team Providers Care Spiritual Care Coordinator Name Role Phone Maximilian Fall MD Primary Care Provider [phone] Reason for Visit * Reason Onset Date Comments Medication Refill 06/27/2019 Encounter Details Date Type Department Care Team (Late st Contact Info) Description 06/27/2019 [place] [address] Sophia Coleman, CCMA Social History Tobacco Use [...] Vascular Unit Level 4 [place] [address] Faheem Joy MD [facility] [address] 08/15/2024 9:00 AM EDT Office [place] [address] Dion Barlow MD [facility] [place] [address] 09/01/2024 9:40 AM EDT Office Visit Cardiology at [address] [place] [address] Franky Shaver MD [facility] [place] [address] 09/01/2024 11:20 AM EDT Office Visit Dermatology at [facility] [address] [place] [address] Gómez Mercer MD [facility] [place] [address] 09/21/2024 2:45 PM EDT Office Visit [place] [address] Trung Hoyos MD [facility] [place] [address] documented as of this encounter Visit Diagnoses Not on filedocumented in this encounter Care Teams Spiritual Care Coordinator Relationship Specialty Start Date End Date Maximilian Fall MD [address] [facility] 1 [place] [address] PCP - General 10/01/11 02/13/21 documented as of this encounter
--- OUTSIDE RECORDS SUMMARY | 2024-07-27 21:08 | XMS_ITS | Encounter Summary ---
Author Organization [facility] [place] [address] Care Team Providers Care Ranch Cook Name Role Phone Maximilian Fall MD Primary Care Provider [phone] Encounter Details Date Type Department Care Team (Late st Contact Info) Description 02/23/2019 Telephone [place] [address] Suzanne Guillermo Social History Tobacco [...] Vascular Unit Level [place] [address] Faheem Joy MD [facility] [place] [address] 08/15/2024 9:00 AM EDT Office Visit Gastroenterology at [place] [phone] Dion Barlow MD [facility] [place] [address] 09/01/2024 9:40 AM EDT Office Visit Cardiology at [address] [place] [address] Franky Shaver MD [facility] [place] [address] 09/01/2024 11:20 AM EDT Office Visit Dermatology at [facility] [address] [place] [address] Gómez Mercer MD [facility] [place] [address] 09/21/2024 2:45 PM EDT Office Visit Pain and Spine Center at [place] [phone] Trung Hoyos MD [facility] [place] [address] documented as of this encounter Visit Diagnoses Not on filedocumented in this encounter Care Teams Ranch Cook Relationship Specialty Start Date End Date Maximilian Fall MD [address] [facility] 1 [place] [address] PCP - General 10/01/11 02/13/21 documented as of this encounter
--- OUTSIDE RECORDS SUMMARY | 2024-07-27 21:08 | XMS_ITS | Encounter Summary ---
Author Organization [facility] Address [facility] [place] [address] Care Team Providers Care Maintenance Engineer Name Role Phone Maximilian Fall MD Primary Care Provider [phone] Reason for Visit * Reason Comments Follow-up Encounter Details Date Type Department Care Team (Late st Contact Info) Description 10/29/2017 10:30 AM EST Office [place] [address] Dion Barlow MD [facility] [place] [address] Left sided ulcerative colitis with complication Social [...] Overview Note: ? Colonoscopy 04/08/10 (Dr. Gomes [facility]) - inflammation only within the rectum and sigmoid; extent of the exam was to the hepatic flexure; biopsies proximal to the sigmoid nl ?? Repeat exam 11/27/11 ([facility] mildly active colitis in the [...] months. 15 min of this 25 min [id number] visit was spent counseling the patient in the issues outlined above. Davina Barlow MD School Guardautomatic corn grinder operator Section of Gastroenterology [place] [address] CC: Maximilian Fall MD [address] [place] [address] documented in this encounter Plan of Treatment Upcoming Encounters Date Type Department Care Team (Late st Contact Info) Description 07/29/2024 Hospital Encounter Heart and Vascular Unit Level 4 [place] [address] Faheem Joy MD [facility] [place] [address] 08/15/2024 9:00 AM EDT Office Visit Gastroenterology at [place] [phone] Dion Barlow MD [facility] [place] [address] 09/01/2024 9:40 AM EDT Office Visit Cardiology at [address] [place] [address] Franky Shaver MD [facility] [place] [address] 09/01/2024 11:20 AM EDT Office Visit Dermatology at [facility] [address] [place] [address] Gómez Mrecer MD [facility] [place] [address] 09/21/2024 2:45 PM EDT Office Visit Pain and Spine Center at [facility] [place] [address] Trung Hoyos MD [facility] [place] [address] documented as of this encounter Visit Diagnoses Diagnosis Left sided ulcerative colitis with complication documented in this encounter Care Teams Maintenance Engineer Relationship Specialty Start Date End Date Maximilian Fall MD [address] [facility] 1 [place] [address] PCP - General 10/01/11 02/13/21 documented as of this encounter
--- OUTSIDE RECORDS SUMMARY | 2024-07-27 21:08 | XMS_ITS | Encounter Summary ---
Author Organization [facility] [place] [address] Care Team Providers Care Pick Up And Delivery Driver Name Role Phone Maximilian Fall MD Primary Care Provider [phone] Reason for Visit * Reason Onset Date Comments Medication Refill 03/12/2018 Encounter Details Date Type Department Care Team (Late st Contact Info) Description 03/12/2018 Ref[place] [address] Bethany Trivedi, RN Pain in right hip; [...] Vascular Unit Level [place] [address] Faheem Joy MD [facility] [place] [place] [address] 08/15/2024 9:00 AM EDT Office [place] [address] Dion Barlow MD [facility] [place] [address] 09/01/2024 9:40 AM EDT Office Visit Cardiology at [address] [place] [address] Franky Shaver MD [facility] [place] [address] 09/01/2024 11:20 AM EDT Office Visit Dermatology at [facility] [address] [place] [address] Gómez Mercer MD [facility] [place] [address] 09/21/2024 2:45 PM EDT Office Visit [place] [address] Trung Hoyos MD [facility] [place] [address] documented as of this encounter Visit Diagnoses Diagnosis Pain in right hip Pain in joint, pelvic region and thigh Chronic ulcerative enterocolitis, unspecified complication documented in this encounter Care Teams Pick Up And Delivery Driver Relationship Specialty Start Date End Date Maximilian Fall MD [address] [facility] [facility] 1 [place] [address] PCP - General 10/01/11 02/13/21 documented as of this encounter
--- OUTSIDE RECORDS SUMMARY | 2024-07-27 21:08 | XMS_ITS | Encounter Summary ---
Author Organization [facility] [place] [address] Care Team Providers Care Jacquard Lace Weaver Name Role Phone Maximilian Fall MD Primary Care Provider [phone] Reason for Visit * Reason Onset Date Comments Medication Refill 02/18/2017 Encounter Details Date Type Department Care Team (Late st Contact Info) Description 02/18/2017 [place] [address] Bethany Trivedi, RN Pain in right hip; [...] Vascular Unit Level 4 [place] [address] [facility] [place] [address] 08/15/2024 9:00 AM EDT Office [place] [address] [facility] [place] [address] 09/01/2024 9:40 AM EDT Office Visit Cardiology at [address] [place] [address] [facility] [place] [address] 09/01/2024 11:20 AM EDT Office Visit Dermatology at [facility] [address] [place] [address] [address]ómez Mercer [address] [facility] [place] [address] 09/21/2024 2:45 PM EDT Office Visit [place] [address] [facility] [place] [address] documented as of this encounter Visit Diagnoses Diagnosis Pain in right hip Pain in joint, pelvic region and thigh Chronic ulcerative enterocolitis, unspecified complication documented in this encounter Care Teams Jacquard Lace Weaver Relationship Specialty Start Date End Date Maximilian Fall MD [address] [facility] 1 [place] [address] PCP - General 10/01/11 02/13/21 documented as of this encounter
--- OUTSIDE RECORDS SUMMARY | 2024-07-27 21:08 | XMS_ITS | Encounter Summary ---
Author Organization [facility] [place] [address] Care Team Providers Care Welding Machine Operator Resistance Name Role Phone Maximilian Fall MD Primary Care Provider [phone] Reason for Visit * Reason Onset Date Comments Reminder Appointment 03/20/2020 Encounter Details Date Type Department Care Team (Late st Contact Info) Description 03/20/2020 Telephone [place] [address] Kinjal Durham CMA GASTROENTEROLOGY DEPT Reminder Appointment [...] Vascular Unit Level 4 [place] [address] Faheem Joy MD [facility] [place] [address] 08/15/2024 9:00 AM EDT Office Visit Gastroenterology at [place] [phone] Dion Barlow MD [facility] [place] [address] 09/01/2024 9:40 AM EDT Office Visit Cardiology at [address] [address] Franky Shaver MD [facility] [place] [address] 09/01/2024 11:20 AM EDT Office Visit Dermatology at [address] [place] [address] Gómez Mercer MD [facility] [place] [address] 09/21/2024 2:45 PM EDT Office Visit [place] [address] Trung Hoyos MD [facility] [place] [place] [address] documented as of this encounter Visit Diagnoses Not on filedocumented in this encounter Care Teams Welding Machine Operator Resistance Relationship Specialty Start Date End Date Maximilian Fall MD [address] [facility] 1 [place] [address] PCP - General 10/01/11 02/13/21 documented as of this encounter
--- OUTSIDE RECORDS SUMMARY | 2024-07-27 21:08 | XMS_ITS | Encounter Summary ---
Author Organization [facility] Address [facility] [place] [address] Care Team Providers Care Industrial Coffee Grinder Name Role Phone Maximilian Fall MD Primary Care Provider [phone] Encounter Details Date Type Department Care Team (Latest Contact Info) Description 04/28/2019 3:07 PM EDT - 04/28/2019 6:06 PM EDT Hospital En[place] [address] Iza Coates MD [facility] [place] [address] Discharge Disposition: Home Social History Tobacco Use [...] Care Everywhere. * EGD (Upper Endoscopy): Post-op (Grenadian) documented in this encounter Medications at Time [...] sedation) Iza Coates MD Gastroenterology attending Pager [phone] documented in this encounter Plan of Treatment Upcoming Encounters Date Type Department Care Team (Late st Contact Info) Description 07/29/2024 Hospital Encounter Heart and Vascular Unit Level 4 [place] [address] Faheem Joy MD [facility] CARDIOLOGY [place], [place] [address] 08/15/2024 9:00 AM EDT Office [place] [address] Dion Barlow MD [facility] [place] [address] 09/01/2024 9:40 AM EDT Office Visit Cardiology at [address] [place] [address] Franky hSaver MD [facility] [place] [address] 09/01/2024 11:20 AM EDT Office Visit Dermatology at [facility] [address] [place] [address] Gómez Mercer MD [facility] DR [place] [address] 09/21/2024 2:45 PM EDT Office Visit Pain and Spine Center at [address] [place] [address] Trung Hoyos MD [facility] [place] [address] documented as of this encounter Procedures Procedure [...] PM EDT 04/28/2019 5:03 PM EDT Narrative [facility] - 04/28/2019 5:03 PM EDT Specimen requisition ordered. ??Separate Pathology report to follow Iza Coates MD PATHOLOGY/CYTOLOG Y ORDERABLES Performing Organization Address [facility] [place] [address] * Specimen to Pathology (04/28/2019 5:03 PM EDT) AP Specimen 04/28/2019 5:03 PM EDT 04/28/2019 5:03 PM EDT Narrative [facility] - 04/28/2019 5:03 PM EDT Specimen requisition ordered. ??Separate Pathology report to follow Iza Coates MD PATHOLOGY/CYTOLOG Y ORDERABLES Performing Organization Address City/[facility] Co de Phone Number [facility] [place] [address] * Surgical Pathology Report (04/28/2019 4:50 PM EDT) Pathologist [facility] Final Diagnosis [id number] ? Location: 4T; EA10; A The signing pathologist has (i) examined the relevant preparation(s) for the specimen(s) and (ii) rendered or confirmed the diagnosis(es). . ?Surgical Pathology DIAGNOSIS A - Random duodenum, biopsy: Duodenal mucosa within normal limits, including preserved villous architecture. B - Fundic gland, polypectomy: Gastric fundic gland polyp. Electronically signed by: ??Joana Soler MD Verified: ??05/02/2019 ?Pathologist Performed at: ??-[facility] Dept. of Pathology, [place], [place] CLINICAL INFORMATION Specimen Submitted: A - [...] labeled B1. ??ejr 05/02/2019 4:02 PM EDT [facility] GI Biopsy 04/28/2019 4:50 PM EDT 04/28/2019 4:50 PM EDT GI Biopsy 04/28/2019 4:50 PM EDT 04/28/2019 4:50 PM EDT Iza Coates MD PATHOLOGY/CYTOLOG Y ORDERABLES [facility] [place] [address] * UPPER GI ENDOSCOPY (04/28/2019 4:39 PM EDT) UPPER GI ENDOSCOPY [facility] Endoscopy Procedure Date: 04/28/2019 4:39 PM ? Patient Name: Brian Rodriguez ? Date of : 1950 ? Age: 68 ? Order #: [id number] ? Instrument Name: [id number] ? Procedure: ? Upper GI endoscopy Indications: ? Abnormal CT of the GI tract (duodenal ? thickening) Providers: ? Iza Coates MD, Nohemi Ball, ? RN, Jonathan Ko, Dairy Bar Manager Referring MD: ?Maximilian Fall MD Requesting [...] Glucose, POC 91 65 - 199 mg/dL [facility] Comment: Supplemental ranges: <140 mg/dL before meals <180 mg/dL all other times of the day Blood specimen (specimen) 04/28/2019 3:46 PM EDT 04/28/2019 3:46 PM EDT Iza Coates MD POINT OF CARE KISHOR T ORDERABLES Performing Organization Address City/State/[facility] Co de Phone Number [facility] [place] [address] documented in this encounter Visit Diagnoses Not on filedocumented in this encounter Active and Recently Administered Medications Times are shown in EDT. PRN Medication Order 04/26/2019 04/27/2019 04/28/2019 fentaNYL 50 mcg/mL multi-dose injection (CANCELED) ONCE PRN, Starting on Tresa 04/28/19 at 1639, Until Tresa 04/28/19 at 2007, Intra-Operative (Intra-Procedure), Routine 1639 (Given - Provid [...] documented in this encounter Care Teams Industrial Coffee Grinder Relationship Specialty Start Date End Date Maximilian Fall MD [address] [place] [address] PCP - General 10/01/11 02/13/21 documented as of this encounter
--- OUTSIDE RECORDS SUMMARY | 2024-07-27 21:08 | XMS_ITS | Encounter Summary ---
Author Organization [facility] Address [facility] [place] [address] Care Team Providers Care Internet Marketing Director Name Role Phone Maximilian Fall MD Primary Care Provider [phone] Encounter Details Date Type Department Care Team (Late st Contact Info) Description 02/22/2019 Orders Only [place] [address] Dion Barlow MD [facility] [place] [address] Social History Tobacco Use Types Packs/Day Years [...] Vascular Unit Level [place] [address] Faheem Joy MD [facility] [place] [address] 08/15/2024 9:00 AM EDT Office Visit [place] [address] Dion Barlow MD [facility] [place] [address] 09/01/2024 9:40 AM EDT Office Visit Cardiology at [address] [place] [address] Franky Shaver MD [facility] [place] [address] 09/01/2024 11:20 AM EDT Office Visit Dermatology at [facility] [address] [place] [address] Gómez Mercer MD [facility] [place] [address] 09/21/2024 2:45 PM EDT Office Visit Pain [place] [address] Trung Hoyos MD [facility] [place] [address] documented as of this encounter Visit Diagnoses Not on filedocumented in this encounter Care Teams Internet Marketing Director Relationship Specialty Start Date End Date Maximilian Fall MD [address] [facility] 1 [place] [address] PCP - General 10/01/11 02/13/21 documented as of this encounter
--- OUTSIDE RECORDS SUMMARY | 2024-07-27 21:08 | XMS_ITS | Encounter Summary ---
Author Organization [place] [address] Care Team Providers Care Counter Molder Name Role Phone Maximilian Fall MD Primary Care Provider [phone] Reason for Visit * Reason Onset Date Comments Medication Refill 02/16/2020 Encounter Details Date Type Department Care Team (Late st Contact Info) Description 02/16/2020 [place] [address] Bethany Trivedi, RN Left sided colitis without [...] Vascular Unit Level 4 [place] [address] Faheem Joy MD [facility] [place] [address] 08/15/2024 9:00 AM EDT Office [place] [address] Dion Barlow MD [facility] [place] [address] 09/01/2024 9:40 AM EDT Office Visit Cardiology at [address] [address] Franky Shaver MD [facility] [place] [address] 09/01/2024 11:20 AM EDT Office Visit Dermatology at [address] [address] Gómez Mercer MD [facility] [place] [address] 09/21/2024 2:45 PM EDT Office Visit [place] [address] Trung Hoyos MD [facility] [place] [address] documented as of this encounter Visit Diagnoses Diagnosis Left sided colitis without complications Left sided ulcerative (chronic) colitis documented in this encounter Care Teams Counter Molder Relationship Specialty Start Date End Date Maximilian Fall MD [address] [address] PCP - General 10/01/11 02/13/21 documented as of this encounter
--- OUTSIDE RECORDS SUMMARY | 2024-07-27 21:08 | XMS_ITS | Encounter Summary ---
Author Organization [facility] Address [facility] [place] [address] Care Team Providers Care Sample Selector Name Role Phone Maximilian Fall MD Primary Care Provider [phone] Reason for Visit * Reason Comments Follow-up Encounter Details Date Type Department Care Team (Late st Contact Info) Description 05/03/2018 8:30 AM EDT Office [place] [address] Dion Barlow MD [facility] [place] [address] Ulcerative pancolitis with complication Social History Tobacco [...] Overview Note: ? Colonoscopy 04/08/10 (Dr. Gomes [facility]) [...] visit. 15 min of this 25 min fwrw-bi-ihxy visit was spent counseling the patient in the issues outlined above. Davina Barlow MD Microfilm Camera Operatorfloor sweeper Section of Gastroenterology [place] [address] CC: Maximilian Fall MD [address] [place] [phone] documented in this encounter Miscellaneous Notes * Addendum Note - Megha Spencer - 05/03/2018 9:35 AM EDTAddended by: MEGHA SPENCER on: 05/03/2018 09:35 AM Modules accepted: Orders documented in this encounter Plan of Treatment Upcoming Encounters Date Type Department Care Team (Late st Contact Info) Description 07/29/2024 Hospital Encounter Heart and Vascular Unit Level [place] [address] Faheem Joy MD [facility] [place] [address] 08/15/2024 9:00 AM EDT Office [place] [address] Dion Barlow MD [facility] [place] [address] 09/01/2024 9:40 AM EDT Office Visit Cardiology at [address] [place] [address] Franky Shaver MD [facility] [place] [address] 09/01/2024 11:20 AM EDT Office Visit Dermatology at [facility] [address] [place] [address] Gómez Mercer MD [facility] DR [place] [address] 09/21/2024 2:45 PM EDT Office Visit [place] [address] Trung Hoyos MD [facility] [place] [address] documented as of this encounter Procedures Procedure [...] * Differential, Automated (05/03/2018 9:46 AM EDT) Pathologist [facility] Neutrophil % 62.5 % [facility] Neutrophil Absolute 3.86 1.70 - 6.10 x10(3)/[facility] LABORATORY Lymph % 27.2 % [facility] Lymphocytes Abs 1.7 0.9 - 3.2 x10(3)/[facility] Monocyte % 7.1 % [facility] Monocyte Abs 0.4 0.3 - 0.9 x10(3)/[facility] Eos % 2.1 % [facility] Eosinophils Abs 0.1 0.0 - 0.4 x10(3)/[facility] Basophil % 0.6 % [facility] Baso Absolute 0.0 0.0 - 0.1 x10(3)/[facility] LAB[facility] Immature Gran % 0.50 % [facility] Comment: Immature granulocytes(IG's)percentage and absolute count will include metamyelocytes, myelocytes, and promyelocytes. Blood smears from CBCs yielding IG's will be scanned manually for concordance. If this scan disagrees with the automated IG or if promyelocytes are noted, a manual differential will be performed. Immature Gran Absolute 0.03 0.00 - 0.04 x10(3)/[facility] Blood specimen (specimen) 05/03/2018 9:46 AM EDT 05/03/2018 10:12 AM EDT Narrative Resulting Agency Comment Spec In Lab L Karthik Barlow MD HEMATOLOGY ORDERABLE S [facility] [place] [address] * (ABNORMAL) Hemogram (05/03/2018 9:46 AM EDT) Pathologist [facility] Emergency Department White Blood Cell 6.2 4.0 - 9.5 [...] RDW Standard Deviation 45.3(H) 36.0 - 45.0 [facility] LABORATORY RDW coefficient of variation 12.5 11.4 - 13.8 % [facility] Mean Platelet Volume 11.2 7.6 - 12.9 fL [facility] NRBC% auto 0.0 % [facility] NRBC Absolute 0.000 0.000 - 0.000 x10(3)/mc L [facility] Blood specimen (specimen) 05/03/2018 9:46 AM EDT 05/03/2018 10:12 AM EDT Narrative Resulting Agency Comment Spec In Lab L Karthik Barlow MD HEMATOLOGY ORDERABLE S Performing Organization Address [facility] [place] [address] * CRP, acute inflammation (05/03/2018 9:46 AM EDT) C-Reactive Protein 3.1 <=4.9 mg/L [facility] Blood specimen (specimen) 05/03/2018 9:46 AM EDT 05/03/2018 10:12 AM EDT Narrative Resulting Agency Comment Spec In Lab L Karthik Barlow MD CHEMISTRY ORDERABLES Performing Organization Address City/[facility]/ZIP Co de Phone Number [facility] [place] [address] * Comprehensive metabolic panel (non-fasting) (05/03/2018 9:46 [...] LABORATORY Est Glomerular Filtration Rate >60 >=60 [facility] Comment: The reported eGFR should be multiplied by 1.2 for patients. The MDRD is not an appropriate measure of renal function for patients with body mass extremes or in patients with acute kidney failure. http://[email or web address].VSE EVAKUATORY ROSSII/DHnkdep http://Sem[employer].io/DHMCnkf Blood specimen (specimen) 05/03/2018 9:46 AM EDT 05/03/2018 10:12 AM EDT Narrative Resulting Agency Comment Spec In Lab L Karthik Barlow MD CHEMISTRY ORDERABLES [facility] [place] [address] documented in this encounter Visit Diagnoses Diagnosis Ulcerative pancolitis with complication documented in this encounter Care Teams Sample Selector Relationship Specialty Start Date End Date Maximilian Fall MD [address] [place] [address] PCP - General 10/01/11 02/13/21 documented as of this encounter
--- OUTSIDE RECORDS SUMMARY | 2024-07-27 21:08 | XMS_ITS | Encounter Summary ---
Author Organization [facility] [place] [address] Care Team Providers Care Net Software Engineer Name Role Phone Maximilian Fall MD Primary Care Provider [phone] Reason for Visit * Reason Onset Date Comments Medication Refill 03/26/2018 Encounter Details Date Type Department Care Team (Late st Contact Info) Description 03/26/2018 [place] [address] Bethany Marquez RN Social History [...] Miscellaneous Notes * Addendum Note - Bethany Marquez, RN - 03/26/2018 4:36 PM EDTAddended by: BETHANY MARQUEZ on: 03/26/2018 04:36 PM Modules accepted: Orders documented in this encounter Plan of Treatment Upcoming Encounters Date Type Department Care Team (Late st Contact Info) Description 07/29/2024 Hospital Encounter Heart and Vascular Unit Level [place] [address] Faheem Joy MD [facility] [place] [address] 08/15/2024 9:00 AM EDT Office [place] [address] Dion Barlow MD [facility] [place] [address] 09/01/2024 9:40 AM EDT Office Visit Cardiology at [address] [address] Franky Shaver MD [facility] [place] [address] 09/01/2024 11:20 AM EDT Office Visit Dermatology at [place] [address] [place] [address] Gómez Mercer MD [facility] [address] 09/21/2024 2:45 PM EDT Office Visit [place] [address] Trung Hoyos MD [facility] [place] [address] documented as of this encounter Visit Diagnoses Not on filedocumented in this encounter Care Teams Net Software Engineer Relationship Specialty Start Date End Date Maximilian Fall MD [address] [facility] [place] [address] PCP - General 10/01/11 02/13/21 documented as of this encounter
--- OUTSIDE RECORDS SUMMARY | 2024-07-27 21:08 | XMS_ITS | Encounter Summary ---
Author Organization [facility] [address] Care Team Providers Care Supervisor Welding Equipment Repairer Name Role Phone Maximilian Fall MD Primary Care Provider [phone] Encounter Details Date Type Department Care Team (Late st Contact Info) Description 03/26/2018 Tele[place] [address] Bethany Trivedi, RN Social History Tobacco Use [...] difficulty getting Cortifoam because it is on refrigerated national truck driver back order. Has been diarrhea and bleeding [...] Vascular Unit Level 4 [place] [address] Faheem Joy MD [facility] [place] [address] 08/15/2024 9:00 AM EDT Office Visit Gastroenterology at [place] [phone] Dion Barlow MD [facility] [place] [address] 09/01/2024 9:40 AM EDT Office Visit Cardiology at [address] [address] Franky Shaver MD [facility] [place] [address] 09/01/2024 11:20 AM EDT Office Visit Dermatology at [place] [address] [place] [address] Gómez Mercer MD [facility] DR [facility] [place] [address] 09/21/2024 2:45 PM EDT Office Visit Pain and Spine Center at [place] [phone] Trung Hoyos MD [facility] [place] [address] documented as of this encounter Visit Diagnoses Not on filedocumented in this encounter Care Teams Supervisor Welding Equipment Repairer Relationship Specialty Start Date End Date Maximilian Fall MD [address] [place] [address] PCP - General 10/01/11 02/13/21 documented as of this encounter
--- OUTSIDE RECORDS SUMMARY | 2024-07-27 21:08 | XMS_ITS | Encounter Summary ---
Author Organization [facility] Address [facility] [place] [address] Care Team Providers Care Corporate Officer Name Role Phone Maximilian Fall MD Primary Care Provider Encounter Details Date Type Department Care Team (Latest Contact Info) Description 02/22/2019 2:13 PM EDT - 02/22/2019 5:26 PM EDT Hospital Encounter [place] [address] Dion Barlow MD [facility] [place] [address] Discharge Disposition: Home Social History Tobacco Use [...] - 02/22/2019 5:05 PM EDT Please call [phone] before 8pm Mon-Fri with problems, questions or concerns. If you call after 8pm or on weekends, call the Hospital at [phone] and ask to speak to the Leadite Heater section hand and the sand operator will contact that person for you. * Attachments The following attachments cannot be sent through Care Everywhere. * Colonoscopy: Post-op (British) * Colon Polyps (British) documented in this encounter Medications at [...] Vascular Unit Level 4 [place] [address] Faheem Joy MD [facility] [place] [address] 08/15/2024 9:00 AM EDT Office Visit [place] [address] Dion Barlow MD [facility] [address] 09/01/2024 9:40 AM EDT Office Visit Cardiology at [address] [place] [address] Franky Shaver MD [facility] [place] [address] 09/01/2024 11:20 AM EDT Office Visit Dermatology at [facility] [address] [place] [address] Gómez Mercer MD [facility] [place] [address] 09/21/2024 2:45 PM EDT Office Visit [facility] [place] [address] Trung Hoyos MD [facility] [place] [address] documented as of this encounter Procedures Procedure [...] PM EDT 02/22/2019 4:56 PM EDT Narrative [facility] - 02/22/2019 4:56 PM EDT Specimen requisition ordered. ??Separate Pathology report to follow L Karthik Barlow MD PATHOLOGY/CYTOLOGY O CEE Performing Organization Address [facility] Co de Phone Number [facility] [place] [address] * Specimen to Pathology (02/22/2019 4:56 PM EDT) AP Specimen 02/22/2019 4:56 PM EDT 02/22/2019 4:56 PM EDT Narrative [facility] - 02/22/2019 4:56 PM EDT Specimen requisition ordered. ??Separate Pathology report to follow L Karthik Barlow MD PATHOLOGY/CYTOLOGY O CEE Performing Organization Address [facility]/ZIP Co de Phone Number [facility] [place] [address] * Specimen to Pathology (02/22/2019 4:56 PM EDT) AP Specimen 02/22/2019 4:56 PM EDT 02/22/2019 4:56 PM EDT Narrative [facility] - 02/22/2019 4:56 PM EDT Specimen requisition ordered. ??Separate Pathology report to follow L Karthik Barlow MD PATHOLOGY/[place] [address] * Specimen to Pathology (02/22/2019 4:56 PM EDT) AP Specimen 02/22/2019 4:56 PM EDT 02/22/2019 4:56 PM EDT Narrative [facility] - 02/22/2019 4:56 PM EDT Specimen requisition ordered. ??Separate Pathology report to follow L Karthik Barlow MD PATHOLOGY/CYTOLOGY O CEE Performing Organization Address [facility]/ZIP [place] [address] * Specimen to Pathology (02/22/2019 4:56 PM EDT) AP Specimen 02/22/2019 4:56 PM EDT 02/22/2019 4:56 PM EDT Narrative [facility] - 02/22/2019 4:56 PM EDT Specimen requisition ordered. ??Separate Pathology report to follow L Karthik Barlow MD PATHOLOGY/CYTOLOGY O CEE Performing Organization Address City/[facility]/ZIP [place] [address] * Specimen to Pathology (02/22/2019 4:56 PM EDT) AP Specimen 02/22/2019 4:56 PM EDT 02/22/2019 4:56 PM EDT Narrative [facility] - 02/22/2019 4:56 PM EDT Specimen requisition ordered. ??Separate Pathology report to follow L Karthik Barlow MD PATHOLOGY/CYTOLOGY O CEE Performing Organization Address City/[facility]/ZIP Co de Phone Number [facility] [place] [address] * Specimen to Pathology (02/22/2019 4:56 PM EDT) AP Specimen 02/22/2019 4:56 PM EDT 02/22/2019 4:56 PM EDT Narrative [facility] - 02/22/2019 4:56 PM EDT Specimen requisition ordered. ??Separate Pathology report to follow L Karthik Barlow MD PATHOLOGY/CYTOLOGY O CEE Performing Organization Address [facility] de Phone Number [facility] [place] [address] * Specimen to Pathology (02/22/2019 4:56 PM EDT) AP Specimen 02/22/2019 4:56 PM EDT 02/22/2019 4:56 PM EDT Narrative [facility] - 02/22/2019 4:56 PM EDT Specimen requisition ordered. ??Separate Pathology report to follow L Karthik Barlow MD PATHOLOGY/CYTOLOGY O CEE Performing Organization Address [facility] de Phone Number [facility] [place] [address] * Surgical Pathology Report (02/22/2019 4:23 PM EDT) Final Diagnosis [id number] ? Location: 4T; EA06; A The signing [...] Tucker MD Verified: ??02/26/2019 ?Pathologist Performed at: ??-[facility] Dept. of Pathology, [place], [place] CLINICAL INFORMATION Specimen Submitted: A - [...] labeled H1-H2. ??apb 02/26/2019 4:24 PM EDT [facility] GI Biopsy 02/22/2019 4:23 [...] PATHOLOGY/CYTOLOGY O RDERABLES [facility] [place] [address] * COLONOSCOPY (02/22/2019 3:57 PM EDT) COLONOSCOPY [facility] Endoscopy ___ Procedure Date: 02/22/2019 3:57 PM ? Patient Name: Brian Rodriguez ? Date of : 1950 ? Age: 68 ? Order #: [id number] ? Instrument Name: [id number] ? ___ Procedure: ? Colonoscopy Indications: ? [...] preparation was evaluated using ? the BBPS ([place] Bowel Preparation ? Scale) with scores of: [...] RN) documented in this encounter Care Teams Corporate Officer Relationship Specialty Start Date End Date Maximilian Fall MD [address] [place] [address] PCP - General 10/01/11 02/13/21 documented as of this encounter
--- OUTSIDE RECORDS SUMMARY | 2024-07-27 21:08 | XMS_ITS | Encounter Summary ---
Author Organization [facility] [place] [address] Care Team Providers Care Belt Cutter Name Role Phone Maximilian Fall MD Primary Care Provider [phone] Encounter Details Date Type Department Care Team (Late st Contact Info) Description 03/07/2019 Ancillary Procedure [place] [address] Dion Barlow MD [facility] [place] [address] Social History Tobacco Use Types Packs/Day Years [...] Vascular Unit Level 4 [place] [address] Faheem Joy MD [facility] [place] [address] 08/15/2024 9:00 AM EDT Office [place] [address] Dion Barlow MD [facility] [place] [address] 09/01/2024 9:40 AM EDT Office Visit Cardiology at [address] [place] [address] Franky Shaver MD [facility] [place] [address] 09/01/2024 11:20 AM EDT Office Visit Dermatology at [facility] [address] [place] [address] Gómez Mercer MD [facility] [address] 09/21/2024 2:45 PM EDT Office Visit [place] [address] Trung Hoyos MD [facility] PA[place] [address] documented as of this encounter Procedures Procedure [...] Barlow MD IMG FILM LIBRARY ORD ERABLES [place], [place] documented in this encounter Visit Diagnoses Not on filedocumented in this encounter Care Teams Belt Cutter Relationship Specialty Start Date End Date Maximilian Fall MD [address] [place] [address] PCP - General 10/01/11 02/13/21 documented as of this encounter
--- OUTSIDE RECORDS SUMMARY | 2024-07-27 21:08 | XMS_ITS | Encounter Summary ---
Author Organization [facility] [place] [address] Care Team Providers Care Real Estate Sales Agent Name Role Phone Maximilian Fall MD Primary Care Provider [phone] Encounter Details Date Type Department Care Team (Latest Contact Info) Description 04/25/2019 12:15 PM EDT Ancillary Procedure [place] [address] Marcelle Weinberg APRN [facility] [place] [address] Left sided colitis without complications Social History [...] [place] [address] Faheem Joy MD [facility] [place] [address] 08/15/2024 9:00 AM EDT Office [place] [address] Dion Barlow MD [facility] [place] [address] 09/01/2024 9:40 AM EDT Office Visit Cardiology at [address] [place] [address] Franky Shaver MD [facility] [address] 09/01/2024 11:20 AM EDT Office Visit Dermatology at [place] [address] [place] [address] Gómez Mercer MD [facility]-[place] [address] 09/21/2024 2:45 PM EDT Office Visit [facility] [place] [address] Trung Hoyos MD [facility] [place] [address] documented as of this encounter Visit Diagnoses Diagnosis Left sided colitis without complications Left sided ulcerative (chronic) colitis documented in this encounter Care Teams Real Estate Sales Agent Relationship Specialty Start Date End Date Maximilian Fall MD [address] [facility] [place] [address] PCP - General 10/01/11 02/13/21 documented as of this encounter
--- OUTSIDE RECORDS SUMMARY | 2024-07-27 21:08 | XMS_ITS | Encounter Summary ---
Author Organization [facility] [place] [address] Care Team Providers Care Refrigeration Supervisor Name Role Phone Maximilian Fall MD Primary Care Provider [phone] Encounter Details Date Type Department Care Team (Late st Contact Info) Description 04/26/2019 Ancillary Procedure [place] [address] Dion Barlow MD [facility] [place]STRO[place] [address] Social History Tobacco Use Types Packs/Day Years [...] Vascular Unit Level [place] [address] Faheem Joy MD [facility] [place] [address] 08/15/2024 9:00 AM EDT Office [place] [address] Dion Barlow MD [facility] GA[place] [address] 09/01/2024 9:40 AM EDT Office Visit Cardiology at [address] [place] [address] Franky Shaver MD [facility] [place] [address] 09/01/2024 11:20 AM EDT Office Visit Dermatology at [facility] [address] [place] [address] Gómez Mercre MD [facility] [address] 09/21/2024 2:45 PM EDT Office Visit [place] [address] Trung Hoyos MD [facility] PAIN [place] [address] documented as of this encounter Procedures Procedure Name Priority Date/Time Associated Diagnosis Comments FILM LIBRARY STORAGE ONLY CT ABDOMEN AND PELVIS Routine 04/26/2019 12:00 AM EDT documented in this encounter Results * Film Library- Storage Only CT Abdomen & Pelvis (04/26/2019 12:00 AM EDT) Narrative [facility] - 04/27/2019 3:22 AM EDT This exam is auto-finalizing. It's purpose is for storage only. Dion Barlow MD IMG FILM LIBRARY ORD ERABLES [place] documented in this encounter Visit Diagnoses Not on filedocumented in this encounter Care Teams Refrigeration Supervisor Relationship Specialty Start Date End Date Maximilian Fall MD [address] [place] [address] PCP - General 10/01/11 02/13/21 documented as of this encounter
--- OUTSIDE RECORDS SUMMARY | 2024-07-27 21:09 | XMS_ITS | Encounter Summary ---
Author Organization [facility] Address [facility] [place] [address] Care Team Providers Care Aircraft Structure Mechanic Name Role Phone Maximilian Fall MD Primary Care Provider [phone] Reason for Visit * Reason Comments Follow-up Encounter Details Date Type Department Care Team (Late st Contact Info) Description 04/08/2016 1:30 PM EDT Office [place] [address] Marcelle Weinberg, JAZMINE [facility] [place] [address] Ulcerative chronic pancolitis, unspecified complication Social History [...] performed by Dion OSULLIVAN at [facility] ENDOSCOPY ??? Pro sigmoidoscopy, diagnostic 03/16/2012 FLEXIBLE SIGMOIDOSCOPY performed by YUDI MALLOY at [facility]OSCOPY ??? Upper gi endoscopy, exam 10/01/2012 UPPER GI ENDOSCOPY performed by Dion OSULLIVAN at [facility] ??? Pro colonoscopy, diagnostic 07/13/2014 COLONOSCOPY, DIAGNOSTIC performed by Dion Osullivan MD at [facility] ENDOSCOPY No family history on file. [...] Vascular Unit Level [place] [address] Faheem Joy MD [facility] [place] [address] 08/15/2024 9:00 AM EDT Office [place] [address] Dion Osullivan MD [facility] [place] [address] 09/01/2024 9:40 AM EDT Office Visit Cardiology at [address] [place] [address] Franky Shaver MD [facility] [place] [address] 09/01/2024 11:20 AM EDT Office Visit Dermatology at [facility] [address] [place] [address] Gómez Mercer MD [facility] DR EDD[place] [address] 09/21/2024 2:45 PM EDT Office Visit [facility] [place] [address] Trung Hoyos MD [facility] [place] [address] documented as of this encounter Visit Diagnoses Diagnosis Ulcerative chronic pancolitis, unspecified complication documented in this encounter Care Teams Aircraft Structure Mechanic Relationship Specialty Start Date End Date Maximilian Fall MD [address] [place] [address] PCP - General 10/01/11 02/13/21 documented as of this encounter
--- OUTSIDE RECORDS SUMMARY | 2024-07-27 21:09 | XMS_ITS | Encounter Summary ---
Author Organization [facility] Address [facility] [place] [address] Care Team Providers Care Airport Operations Crew Member Name Role Phone Maximilian Fall MD Primary Care Provider [phone] Encounter Details Date Type Department Care Team (Latest Contact Info) Description 11/06/2015 11:18 AM EST - 11/06/2015 11:59 PM [facility] Hospital Encounter XRay at [address] [place] [address] Dion Barlow MD [facility] [place] [address] Pain in right hip; Bilateral low back [...] Vascular Unit Level [place] [address] Faheem Joy MD [facility] [place] [address] 08/15/2024 9:00 AM EDT Office [place] [address] Dion Barlow MD [facility] [place] [address] 09/01/2024 9:40 AM EDT Office Visit Cardiology at [address] [place] [address] Franky Shaver MD [facility] [place] [address] 09/01/2024 11:20 AM EDT Office Visit Dermatology at [facility] [address] [place] [address] Gómez Mercer MD [facility] DR [place] [address] 09/21/2024 2:45 PM EDT Office Visit Pain and Sp[facility] at [facility] [place] [address] Trung Hoyos MD [facility] [place] [address] documented as of this encounter Procedures Procedure [...] complication documented in this encounter Care Teams Airport Operations Crew Member Relationship Specialty Start Date End Date Maximilian Fall MD [address] [place] [address] PCP - General 10/01/11 02/13/21 documented as of this encounter
--- OUTSIDE RECORDS SUMMARY | 2024-07-27 21:09 | XMS_ITS | Encounter Summary ---
Author Organization [facility] Address [facility] [place] [address] Care Team Providers Care Wellness Program Coordinator Name Role Phone Maximilian Fall MD Primary Care Provider [phone] Encounter Details Date Type Department Care Team (Late st Contact Info) Description 02/12/2017 11:15 AM EDT - 02/12/2017 12:00 PM EDT [place] [address] Dion Barlow MD [facility] [place] [address] COLONOSCOPY FLEXIBLE, WITH BX (WRVU 3.56) Social [...] - 02/12/2017 12:37 PM EDT Please call [phone] before 8pm with problems, questions or concerns, after 5pm call the Hospital at [phone] and ask to speak to the Solar Electric Installer service operations manager and the diamond saw operator will contact that person for [...] sent through Care Everywhere. * COLONOSCOPY: POST-OP ([place]) documented in this encounter Medications at [...] Vascular Unit Level 4 [place] [address] Faheem Joy MD [facility] [place] [address] 08/15/2024 9:00 AM EDT Office [place] [address] Dion Barlow MD [facility] [place] [address] 09/01/2024 9:40 AM EDT Office Visit Cardiology at [address] [address] Franky Shaver MD [facility] [place] [address] 09/01/2024 11:20 AM EDT Office Visit Dermatology at [place] [address] [place] [address] Gómez Mercer MD [facility] [place] [address] 09/21/2024 2:45 PM EDT Office Visit [place] [address] Trung Hoyos MD [facility] [place] [address] documented as of this encounter Procedures Procedure [...] PM EDT 02/12/2017 12:16 PM EDT Narrative [facility] - 02/12/2017 12:16 PM EDT Specimen requisition ordered. ??Separate Pathology report to follow L Karthik Barlow MD PATHOLOGY/CYTOLOGY O CEE Performing Organization Address [facility]/[place] [address] * Specimen to Pathology (surgical or derm) (02/12/2017 12:16 PM EDT) AP Specimen 02/12/2017 12:1 6 PM EDT 02/12/2017 12:16 PM EDT Narrative [facility] - 02/12/2017 12:16 PM EDT Specimen requisition ordered. ??Separate Pathology report to follow L Karthik Barlow MD PATHOLOGY/CYTOLOGY O CEE Performing Organization Address City/[facility]/[place] [address] * Specimen to Pathology (surgical or derm) (02/12/2017 12:16 PM EDT) AP Specimen 02/12/2017 12:1 6 PM EDT 02/12/2017 12:16 PM EDT Narrative [facility] - 02/12/2017 12:16 PM EDT Specimen requisition ordered. ??Separate Pathology report to follow L Karthik Barlow MD PATHOLOGY/CYTOLOGY O CEE Performing Organization Address [facility] Co de Phone Number [facility] [place] [address] * Specimen to Pathology (surgical or derm) (02/12/2017 12:16 PM EDT) AP Specimen 02/12/2017 12:1 6 PM EDT 02/12/2017 12:16 PM EDT Narrative [facility] - 02/12/2017 12:16 PM EDT Specimen requisition ordered. ??Separate Pathology report to follow L Karthik Barlow MD PATHOLOGY/CYTOLOGY O CEE Performing Organization Address [facility] [place] [address] * Surgical Pathology Report (02/12/2017 12:15 PM EDT) Final Diagnosis [id number] ?Location: 4T; EA07; A The signing pathologist [...] ing: (T2) ??ejr 02/13/2017 4:23 PM EDT [facility] GI Biopsy 02/12/2017 12:1 5 PM EDT 02/12/2017 12:15 PM EDT GI Biopsy 02/12/2017 12:1 5 PM EDT 02/12/2017 12:15 PM EDT GI Biopsy 02/12/2017 12:1 5 PM EDT 02/12/2017 12:15 PM EDT GI Biopsy 02/12/2017 12:1 5 PM EDT 02/12/2017 12:15 PM EDT L Karthik Barlow MD PATHOLOGY/CYTOLOGY O RDERABLES [facility] [place] [address] * COLONOSCOPY (02/12/2017 11:40 AM EDT) COLONOSCOPY [facility] Endoscopy ___ Procedure Date: 02/12/2017 11:40 AM ? Patient Name: Brian Rodriguez ? Date of : 1950 ? Age: 66 ? Order #: [id number] ? Instrument Name: [id number] ? ___ Procedure: ? Colonoscopy Indications: ? High risk colon cancer surveillance: ? Ulcerative colitis Patient Profile: ? This is a 66 year old male. This ? patient has left-sided ulcerative ? colitis on sulfasalazine and ? Cortifoam and is experiencing mild ? symptoms. Providers: ? L. Karthik Barlow MD, Vandana Love ? RONY Mckeon, Sonal Segura, ? Toll Transmission Worker Referring MD: ?Maximilian Fall MD Medicines: [...] preparation was evaluated using ? the BBPS ([place] Bowel Preparation ? Scale) with scores of: [...] by the sedation RN. ? _ LAnalia Karthik Barlow MD 02/12/2017 12:30:33 PM Number of Addenda: 0 Note Initiated On: 02/12/2017 11:40 AM PROVATION 02/12/2017 11:4 0 AM EDT Maximilian Fall MD GENERAL SURGICAL ORD ERABLES Performing Organization Address [facility] de Phone Number PROVATION * POCT Fingerstick Glucose (02/12/2017 10:30 AM EDT) Glucose, POC 132 60 - 199 mg/dl 02/12/2017 10:3 0 AM EDT Dion Barlow MD POINT OF CARE TEST O RDERABLES * POCT Glucose (02/12/2017 10:29 AM EDT) Glucose, POC 132 65 - 199 mg/dL [facility] Comment: Supplemental ranges: <140 mg/dL before meals <180 mg/dL all other times of the day Blood specimen (specimen) 02/12/2017 10:29 AM EDT 02/12/2017 10:29 AM EDT Dion Barlow MD POINT OF CARE TEST O RDERABLES Performing Organization Address [facility] de Phone Number [facility] [place] [id number] documented in this encounter Visit Diagnoses Diagnosis Ulcerative rectosigmoiditis with rectal bleeding documented in this encounter Administered Medications Inactive Administered Medications - up to 3 most recent administrations Medication Order MAR Action Action Date Dose Rate Site fentaNYL 50 mcg/mL multi-dose injection ONCE PRN, Starting on Tresa 02/12/17 at 1141, Until Tresa 3/23/17 at 1550, Intra-Operative (Intra-Procedure), Routine Given 02/12/2017 [...] RN) documented in this encounter Care Teams Wellness Program Coordinator Relationship Specialty Start Date End Date Maximilian Fall MD [address] [place] [address] PCP - General 10/01/11 02/13/21 documented as of this encounter
--- OUTSIDE RECORDS SUMMARY | 2024-07-27 21:09 | XMS_ITS | Encounter Summary ---
Author Organization [facility] Address [facility] [place] [address] Care Team Providers Care Packing Room Supervisor Name Role Phone Maximilian Fall MD Primary Care Provider [phone] Encounter Details Date Type Department Care Team (Latest Contact Info) Description 11/06/2015 11:16 AM EST - 11/06/2015 11:17 AM [facility] Hospital Encounter XRay at [address] [place] [address] Dion Barlow MD [facility] [place] [address] Pain in right hip; Bilateral low back [...] Vascular Unit Level 4 [place] [address] Faheem Joy MD [facility] [address] 08/15/2024 9:00 AM EDT Office [place] [address] Dion Barlow MD [facility] [place] [address] 09/01/2024 9:40 AM EDT Office Visit Cardiology at [address] [place] [address] Franky Shaver MD [facility] [place] [address] 09/01/2024 11:20 AM EDT Office Visit Dermatology at [facility] [address] [place] [address] Gómez Mercer MD [facility] DR EDDIE SANCHE[place] [address] 09/21/2024 2:45 PM EDT Office Visit Pain and Spine Center at [facility] [place] [address] Trung Hoyos MD [facility] [place] [address] documented as of this encounter Procedures Procedure [...] complication documented in this encounter Care Teams Packing Room Supervisor Relationship Specialty Start Date End Date Maximilian Fall MD [address] [place] [address] PCP - General 10/01/11 02/13/21 documented as of this encounter
--- OUTSIDE RECORDS SUMMARY | 2024-07-27 21:09 | XMS_ITS | Encounter Summary ---
Author Organization Count Includes [facility] Address [facility] [place] [address] Care Team Providers Care Cylinder Honer Name Role Phone Maximilian Fall MD Primary Care Provider [phone] Encounter Details Date Type Department Care Team (Late st Contact Info) Description 07/13/2014 2:30 PM EDT - 07/13/2014 3:30 PM EDT Surgery [place] [address] Dion Osullivan MD [facility] [place] [address] COLONOSCOPY, DIAGNOSTIC (WRVU 3.26) Social History Tobacco [...] - 07/13/2014 4:14 PM EDT Please call [phone], before 5pm with problems, questions or concerns, after 5pm call the Hospital at [phone] and ask to speak to the Supervisor [employer] electronic transaction implementer and the malter operator will contactthat person for you. Discharge [...] through Care Everywhere. * COLONOSCOPY : POSTOP (JAPANESE) documented in this encounter Medications at [...] MD - 07/13/2014 3:57 PM EDT [facility] Operative Note Patient Name: Naya Rodriguez : [id number] MR#: [id number] Case Date: 07/13/2014 Surgeon: Surgeon(s) and Role: [...] Vascular Unit Level 4 [place] [address] Faheem Joy MD [facility] [place] [address] 08/15/2024 9:00 AM EDT Office Visit Gastroenterology at [place] [phone] Dion Osullivan MD [facility] [place] [address] 09/01/2024 9:40 AM EDT Office Visit Cardiology at [address] [address] Franky Shaevr MD [facility] [place] [address] 09/01/2024 11:20 AM EDT Office Visit Dermatology at [address] [address] Gómez Mercer MD [facility] DR [place] [address] 09/21/2024 2:45 PM EDT Office Visit [place] [address] Trung Hoyos MD [facility] [place] [address] documented as of this encounter Procedures Procedure [...] (07/13/2014 3:58 PM EDT) Final Diagnosis ? [facility] ? Provider: ?? Dion OSULLIVAN ?Pt. Name: ?? NAYA RODRIGUEZ ? Acc #: ?[id number] ?Pt. ? Col Date: ?? 07/13/2014 ? [...] - Mucosal biopsies - R colon ? [facility] ? Provider: ?? Dion OSULLIVAN ?Pt. Name: ?? NAYA RODRIGUEZ ? Acc #: ?[id number] ?Pt. ? Col Date: ?? 07/13/2014 ? /Sex: ?1950,(64 years),Male ? Rec Date: ?? 07/13/2014 ? LOC: ?4T ? SURGICAL PATHOLOGY ? Clinical History: ? 64-year-old with a history of left sided UC ? Clinical Diagnosis: ? Same 07/14/2014 4:08 PM EDT [facility] GI Biopsy 07/13/2014 3:58 PM EDT 07/13/2014 3:58 PM EDT GI Biopsy 07/13/2014 3:58 PM EDT 07/13/2014 3:58 PM EDT GI Biopsy 07/13/2014 3:58 PM EDT 07/13/2014 3:58 PM EDT L Karthik Osullivan MD PATHOLOGY/CYTOLOGY O CEE Performing Organization Address [facility] Co de Phone Number [facility] [place] [address] * Specimen to Pathology (surgical or derm) (07/13/2014 3:58 PM EDT) AP Specimen 07/13/2014 3:58 PM EDT 07/13/2014 3:58 PM EDT Narrative [facility] COLBERTI[facility] - 07/13/2014 3:58 PM EDT Specimen requisition ordered. ??Separate Pathology report to follow L Karthik Osullivan MD PATHOLOGY/CYTOLOGY O CEE Performing Organization Address [facility] Co de Phone Number DURGA FREDERICK * Specimen to Pathology (surgical or derm) (07/13/2014 3:58 PM EDT) AP Specimen 07/13/2014 3:58 PM EDT 07/13/2014 3:58 PM EDT Narrative [facility] FILEMONIUM - 07/13/2014 3:58 PM EDT Specimen requisition ordered. ??Separate Pathology report to follow L Karthik Osullivan MD PATHOLOGY/CYTOLOGY O CEE Performing Organization Address [facility] Co de Phone Number [facility] * Specimen to Pathology (surgical or derm) (07/13/2014 3:58 PM EDT) AP Specimen 07/13/2014 3:58 PM EDT 07/13/2014 3:58 PM EDT Narrative [facility] COLBERTIUM - 07/13/2014 3:58 PM EDT Specimen requisition ordered. ??Separate Pathology report to follow L Karthik Osullivan MD PATHOLOGY/CYTOLOGY Ozzie MIKE DURGA FREDERICK * COLONOSCOPY (07/13/2014 2:51 PM EDT) COLONOSCOPY [facility] Endoscopy Patient Name: Naya Rodriguez ? Procedure Date: 07/13/2014 2:51 PM ? N: [id number] ? Date of : 1950 ? Age: 64 ? Order #: [id number] ? Procedure: ? Colonoscopy Indications: ? Follow-up of left-sided chronic ? ulcerative colitis Providers: ? L. Karthik Osullivan MD, Emily Quinn, ? RN, Luna Connors RN, Cam Ashley. ? Doug, Residential Mental Health Worker Referring MD: ?Maximilian Fall MD Medicines: [...] Glucose, POC 167 60 - 199 mg/dL [facility] Comment: Supplemental ranges: <140 mg/dL before meals <180 mg/dL all other times of the day Blood specimen (specimen) 07/13/2014 1:59 PM EDT 07/13/2014 1:59 PM EDT Dion Osullivan MD POINT OF CARE TEST O RDERABLES Performing Organization Address [facility] Co de Phone Number [facility] documented in this encounter Visit Diagnoses [...] (Intra-Procedure), Routine 1459 (Given - Provid er: Emiyl Quinn RN)1504 (Given - Provider: Emily Quinn [...] uncomfortable) documented in this encounter Care Teams Cylinder Honer Relationship Specialty Start Date End Date Maximilian Fall MD [address] [place], [place] [address]Y [address] [place] [address] PCP - General 10/01/11 02/13/21 documented as of this encounter
--- OUTSIDE RECORDS SUMMARY | 2024-07-27 21:09 | XMS_ITS | Encounter Summary ---
Author Organization [facility] Address [facility] [place] [address] Care Team Providers Care Harp Repairer Name Role Phone Maximilian Fall MD Primary Care Provider [phone] Encounter Details Date Type Department Care Team (Latest Contact Info) Description 02/12/2017 10:14 AM EDT - 02/12/2017 1:50 PM EDT Hospital Encounter [place] [address] Dion Barlow MD [facility] [place] [address] Discharge Disposition: Home Social History Tobacco Use [...] - 02/12/2017 12:37 PM EDT Please call [phone] before 8pm with problems, questions or concerns, after 5pm call the Hospital at [phone] and ask to speak to the Satellite Tv Technician Installer electronics tester and the air lift operator will contact that person for [...] sent through Care Everywhere. * COLONOSCOPY: POST-OP (TELUGU) documented in this encounter Medications at [...] Vascular Unit Level 4 [place] [address] Faheem Joy MD [facility] [place] [address] 08/15/2024 9:00 AM EDT Office Visit [place] [address] Dion Barlow MD [facility] [place] [address] 09/01/2024 9:40 AM EDT Office Visit Cardiology at [address] [place] [address] Franky Shaver MD [facility] [place] [address] 09/01/2024 11:20 AM EDT Office Visit Dermatology at [facility] [address] [place] [address] Gómez Mercer MD [facility] [place] [address] 09/21/2024 2:45 PM EDT Office Visit Pain [place] [address] Trung Hoyos MD [facility] [place] [address] documented as of this encounter Procedures Procedure [...] PM EDT 02/12/2017 12:16 PM EDT Narrative [facility] - 02/12/2017 12:16 PM EDT Specimen requisition ordered. ??Separate Pathology report to follow L Karthik Barlow MD PATHOLOGY/CYTOLOGY O CEE Performing Organization Address [facility] [place] [address] * Specimen to Pathology (surgical or derm) (02/12/2017 12:16 PM EDT) AP Specimen 02/12/2017 12:1 6 PM EDT 02/12/2017 12:16 PM EDT Narrative [facility] - 02/12/2017 12:16 PM EDT Specimen requisition ordered. ??Separate Pathology report to follow L Karthik Barlow MD PATHOLOGY/CYTOLOGY O CEE Performing Organization Address [facility] [place] [address] * Specimen to Pathology (surgical or derm) (02/12/2017 12:16 PM EDT) AP Specimen 02/12/2017 12:1 6 PM EDT 02/12/2017 12:16 PM EDT Narrative [facility] - 02/12/2017 12:16 PM EDT Specimen requisition ordered. ??Separate Pathology report to follow L Karthik Barlow MD PATHOLOGY/CYTOLOGY O RDERABLES Performing Organization Address City/[facility] Co de Phone Number [facility] [place] [address] * Specimen to Pathology (surgical or derm) (02/12/2017 12:16 PM EDT) AP Specimen 02/12/2017 12:1 6 PM EDT 02/12/2017 12:16 PM EDT Narrative [facility] - 02/12/2017 12:16 PM EDT Specimen requisition ordered. ??Separate Pathology report to follow L Karhtik Barlow MD PATHOLOGY/CYTOLOGY O CEE Performing Organization Address [facility] [place] [address] * Surgical Pathology Report (02/12/2017 12:15 PM EDT) Final Diagnosis [id number] ?Location: 4T; EA07; A The signing pathologist [...] (T2) ??ejr 02/13/2017 4:23 PM EDT [facility] GI Biopsy 02/12/2017 12:1 5 PM EDT 02/12/2017 12:15 PM EDT GI Biopsy 02/12/2017 12:1 5 PM EDT 02/12/2017 12:15 PM EDT GI Biopsy 02/12/2017 12:1 5 PM EDT 02/12/2017 12:15 PM EDT GI Biopsy 02/12/2017 12:1 5 PM EDT 02/12/2017 12:15 PM EDT L Karthik Barlow MD PATHOLOGY/CYTOLOGY O DANIELERAOMAR [facility] [place] [address] * COLONOSCOPY (02/12/2017 11:40 AM EDT) COLONOSCOPY [facility] Endoscopy ___ Procedure Date: 02/12/2017 11:40 AM ? Patient Name: Brian Rodriguez ? Date of : 1950 ? Age: 66 ? Order #: [id number] ? Instrument Name: [id number] ? ___ Procedure: ? Colonoscopy Indications: ? High risk colon cancer surveillance: ? Ulcerative colitis Patient Profile: ? This is a 66 year old male. This ? patient has left-sided ulcerative ? colitis on sulfasalazine and ? Cortifoam and is experiencing mild ? symptoms. Providers: ? L. Karthik Barlow MD, Vandana Vargas. ? RONY Mckeon, Sonal Segura, ? Juice Tester Referring MD: ?Maximilian Fall MD Medicines: ? [...] preparation was evaluated using ? the BBPS ([place] Bowel Preparation ? Scale) with scores of: [...] documented by the sedation RN. ? _ Davina Barlow MD 02/12/2017 12:30:33 PM Number of Addenda: 0 Note Initiated On: 02/12/2017 11:40 AM PROVATION 02/12/2017 11:4 0 AM EDT Maximilian Fall MD GENERAL SURGICAL ORD ERABLES Performing Organization Address [facility]/ZIP Co de Phone Number PROVATION * POCT Fingerstick Glucose (02/12/2017 10:30 AM EDT) Glucose, POC 132 60 - 199 mg/dl 02/12/2017 10:3 0 AM EDT Dion Barlow MD POINT OF CARE TEST O RDERABLES * POCT Glucose (02/12/2017 10:29 AM EDT) Glucose, POC 132 65 - 199 mg/dL [facility] Comment: Supplemental ranges: <140 mg/dL before meals <180 mg/dL all other times of the day Blood specimen (specimen) 02/12/2017 10:29 AM EDT 02/12/2017 10:29 AM EDT Dion Barlow MD POINT OF CARE TEST O RDERABLES Performing Organization Address [facility]/ZIP Co de Phone Number [facility] [place] [phone] documented in this encounter Visit Diagnoses Not [...] on Tresa 02/12/17 at 1045, Until Tresa 17 at 1244, Endoscopy (Day of Procedure) 1031 [...] on Tresa 17 at 1141, Until Tresa 17 at 1550, Intra-Operative (Intra-Procedure), Routine 1141 (Given - Provid er: Vandana Mckeon RN)1144 (Given - Provider: Vandana Mckeon RN)1147 (Given - Provider: Vandana Mckeon RN)1151 (Given - Provider: Vandana Mckeon RN)1154 (Given - Provider: Vandana Mckeon RN) documented in this encounter Care Teams Harp Repairer Relationship Specialty Start Date End Date Maximilian Fall MD [address] [place] [address] PCP - General 10/01/11 02/13/21 documented as of this encounter
--- OUTSIDE RECORDS SUMMARY | 2024-07-27 21:09 | XMS_ITS | Encounter Summary ---
Author Organization [facility] [place] [address] Care Team Providers Care Opto Mechanical Technician Name Role Phone Maximilian Fall MD Primary Care Provider Encounter Details Date Type Department Care Team (Late st Contact Info) Description 11/06/2015 Orders [place] [address] Marcelle Weinberg, WARP COILER [facility] [place] [address] Ulcerative colitis without complications Social History Tobacco [...] Vascular Unit Level 4 [place] [address] Faheem Joy MD [facility] [place] [address] 08/15/2024 9:00 AM EDT Office [place] [address] Dion Barlow MD [facility] [place] [address] 09/01/2024 9:40 AM EDT Office Visit Cardiology at [address] [place] [address] Franky Shaver MD [facility] [place] [address] 09/01/2024 11:20 AM EDT Office Visit Dermatology at [facility] [address] [place] [address] Gómez Mercer MD [facility] [place] [address] 09/21/2024 2:45 PM EDT Office Visit [facility] [place] [address] Trung Hoyos MD [facility] [place] [address] documented as of this encounter Visit Diagnoses Diagnosis Ulcerative colitis without complications Ulcerative colitis, unspecified documented in this encounter Care Teams Opto Mechanical Technician Relationship Specialty Start Date End Date Maximilian Flal MD [address] [facility] 1 [place] [address] PCP - General 10/01/11 02/13/21 documented as of this encounter
--- OUTSIDE RECORDS SUMMARY | 2024-07-27 21:09 | XMS_ITS | Encounter Summary ---
Author Organization [facility] Address [facility] [place] [id number] Care Team Providers Care Atmospheric Physics Professor Name Role Phone Maximilian Fall MD Primary Care Provider [phone] Reason for Referral * Diagnostic Test (Routine) - Closed Specialty Diagnoses / Procedures Referred By Contac t Referred To Contact Radiology Diagnoses Postoperative wound abscess, initial encounter Procedures CT Retroperitoneal Abscess Drain Minnie Johnson MD [facility] [place] [address] [facility] [place] [address] Referral ID Status Reason Start Date Expiration Date V isits Requested Visits Authorized [id number] Closed Specialty Service Requested 03/22/2016 03/22/2017 1 1 Encounter Details Date Type Department Care Team (Late st Contact Info) Description 03/22/2016 [place] [address] Minnie Johnson MD [facility] [place] [address] Postoperative wound abscess, initial encounter [...] : 1950 Referring Physician: Dr. Guerin from [facility] Indication: RLQ post-operative abscess Planned Procedure: CT guided abscess drain placement Chief Complaint/HPI: 65 y.o. male with PMHx significant for asthma, diabetes, and ulcerative colitis who is status post laparoscopic appendectomy on 03/13/2016 who noted RLQ pain several days post-op.He presented to [facility] ED and underwent a CT scan with findings consistent with RLQ abscess. We have been consulted for CT guided abscess drain placement. The patient has been admitted to [facility] and will be transferred back to [facility] following the procedure. OSH Labs: WBC [...] Hurtado. Minnie Johnson MD Radiology, PGY-2 Pager [phone] documented in this encounter Plan of Treatment Upcoming Encounters Date Type Department Care Team (Late st Contact Info) Description 07/29/2024 Hospital Encounter Heart and Vascular Unit Level 4 [place] [address] Faheem Joy MD [facility] [place] [address] 08/15/2024 9:00 AM EDT Office Visit [place] [address] Dion Barlow MD [facility] [place] [address] 09/01/2024 9:40 AM EDT Office Visit Cardiology at [address] [place] [address] Franky Shaver MD [facility] [place] [address] 09/01/2024 11:20 AM EDT Office Visit Dermatology at [facility] [address] [place] [address] Gómez Mercer MD [facility] [place] [address] 09/21/2024 2:45 PM EDT Office Visit [facility] [place] [address] Trung Hoyos MD [facility] [place] [address] documented as of this encounter Results * CT Retroperitoneal Abscess Drain (03/22/2016 12:34 PM EDT) Anatomical Region Laterality Modality Abdomen Computed Tomogra phy Narrative 03/22/2016 1:02 PM EDT VIR PROCEDURE NOTE Procedure: CT-guided RLQ?? drainage catheter placement (ACC # [id number]) Indication : 65 y.o. male with PMHx [...] Hospital and will be transferred back to [facility] following the procedure. Technique: After discussing [...] encounter documented in this encounter Care Teams Atmospheric Physics Professor Relationship Specialty Start Date End Date Maximilian Fall MD [address] [facility] 1 [place] [address] PCP - General 10/01/11 02/13/21 documented as of this encounter
--- OUTSIDE RECORDS SUMMARY | 2024-07-27 21:09 | XMS_ITS | Encounter Summary ---
Author Organization [facility] Address [place] [id number] Care Team Providers Care Television Repairman Name Role Phone Maximilian Fall MD Primary Care Provider [phone] Reason for Referral * Diagnostic Test (Routine) - Closed Specialty Diagnoses / Procedures Referred By Contac t Referred To Contact Radiology Diagnoses Postoperative wound abscess, initial encounter Procedures CT Retroperitoneal Abscess Drain Minnie Johnson MD [facility] [place] [place] [address] [facility] [place] [address] Referral ID Status Reason Start Date Expiration Date V isits Requested Visits Authorized [id number] Closed Specialty Service Requested 03/22/2016 03/22/2017 1 1 Reason for Visit * Diagnostic Test (Routine) - Closed Specialty Diagnoses / Procedures Referred By Contac t Referred To Contact Radiology Diagnoses Postoperative wound abscess, initial encounter Procedures CT Retroperitoneal Abscess Drain Minnie Johnson MD [facility] [place] [address] [facility] [place] [address] Referral ID Status Reason Start Date Expiration Date V isits Requested Visits Authorized [id number] Closed Specialty Service Requested 03/22/2016 03/22/2017 1 1 Encounter Details Date Type Department Care Team (Latest Contact Info) Description 03/22/2016 10:40 AM EDT - 03/22/2016 11:59 PM EDT Hospital [place] [address] Shireen Hurtado MD [facility] [place] [address] Postoperative wound abscess, initial encounter Discharge Disposition: [...] is during regular office hours, please call [phone]. If it is after regular office hours, or on weekends or holidays, please call [phone] and ask to speak to the Outboard System Operator distribution driver for Interventional Radiology. You have received medication [...] pain several days post-op. He presented to [facility] ED and underwent a CT scan with findings consistent with RLQ abscess. We have been consulted for CT guided abscess drain placement. The patient has been admitted to [facility] and will be transferred back to [facility] following the procedure. Addendum: The patient's [...] Classification: II (soft palate, uvula, fauces visible) iMnnie Johnson MD Radiology, PGY-2 Pager [phone] * Danyell Doyle RN - 03/22/2016 10:29 AM EDT ANGIO NURSING DATABASE Name: NAYA RODRIGUEZ Date of : 1950 AGE 65 y.o. [address]: [address] [place] [phone] (home) Mobile: Telephone Information: Referring Provider: Minnie [...] [facility] ??? Pro sigmoidoscopy, diagnostic 03/16/2012 FLEXIBLE SIGMOIDOSCOPY performed by YUDI MALLOY at [facility] ENDOS[facility] ??? Upper gi endoscopy, exam 10/01/2012 UPPER GI ENDOSCOPY performed by Dion OSULLIVAN at [facility] END[facility] ??? Pro colonoscopy, diagnostic 07/13/2014 COLONOSCOPY, DIAGNOSTIC performed by Dion Osullivan MD at [facility] Date/Procedure Med's given/comments No previous found [...] CT-guided RLQ drainage catheter placement (acc # [id number]) Indication : 65 y.o. male with PMHx significant for asthma, diabetes, and ulcerative colitis who isstatus post laparoscopic appendectomy on 03/13/2016 who noted RLQ pain several days post-op. He presented to [facility] ED and underwent a CT scan with findings consistent with RLQ abscess. We have been consulted for CT guided abscess drain placement. The patient has beenadmitted to [facility] and will be transferred back to [facility] following the procedure. . Technique: After [...] Vascular Unit Level 4 [place] [address] Faheem Joy MD [facility] [place] [address] 08/15/2024 9:00 AM EDT Office [place] [address] Dion Osullivan MD [facility] [place] [address] 09/01/2024 9:40 AM EDT Office Visit Cardiology at [address] [place] [address] Franky Shaver MD [facility] [place] [address] 09/01/2024 11:20 AM EDT Office Visit Dermatology at [place] [address] [place] [address] Gómez Mercer MD [facility] [place] [address] 09/21/2024 2:45 PM EDT Office Visit [place] [address] Trung Hoyos MD [facility] [place] [address] documented as of this encounter Procedures Procedure [...] CT-guided RLQ?? drainage catheter placement (ACC # [id number]) Indication : 65 y.o. male with PMHx significant for asthma, diabetes, and ulcerative colitis who is status post laparoscopic appendectomy on 03/13/2016 who noted RLQ pain several days post-op. He presented to [facility] ED and underwent a CT scan with findings consistent with RLQ abscess. We have been consulted for CT guided abscess drain placement. The patient has been admitted to [facility] and will be transferred back to [...] EDT) Anaerobic Culture No anaerobic organisms isolated [facility] Specimen from abscess (specimen) [place] / Unknown 03/22/2016 10:54 AM EDT 03/22/2016 12:52 PM EDT Comment:RLQ PAIN SEVERAL DAY S POST-OP. HE PRESENTED TO [facility] ED AND UNDERWENT A CT SCAN WITH FINDINGS CONSISTENT WITH RLQ ABSCESS. S/P APPY. Narrative Resulting Agency Comment Spec In Lab Shireen Hurtado MD MICROBIOLOGY - GENER AL ORDERABLES [facility] [place] [address] * (ABNORMAL) Wound Aspirate/Abscess Culture (03/22/2016 10:54 AM EDT) Abscess/Wound Aspirate Culture Many Escherichia coli(A) [facility] Gram Stain Many White Blood Cells seen Many Gram Negative Rods seen (A) [facility] Organism Escherichia coli(A) [facility] Organism Gram Negative Rods(A) [facility] Specimen from abscess (specimen) [place] / Unknown 03/22/2016 10:54 AM EDT 03/22/2016 12:52 PM EDT Comment:RLQ PAIN SEVERAL DAY S POST-OP. HE PRESENTED TO [facility] ED AND UNDERWENT A CT SCAN [...] METHOD Sensitive Shireen Hurtado MD MICROBIOLOGY - SAUNDRA AL ORDERABLES [facility] [place] [address] documented in this encounter Visit Diagnoses Diagnosis [...] mL/hr documented in this encounter Care Teams Television Repairman Relationship Specialty Start Date End Date Maximilian Fall MD [address] [place] [address] PCP - General 10/01/11 02/13/21 documented as of this encounter
--- OUTSIDE RECORDS SUMMARY | 2024-07-27 21:09 | XMS_ITS | Encounter Summary ---
Author Organization [facility] Address [facility] [place] [address] Care Team Providers Care Extension Forester Name Role Phone Maximilian Fall MD Primary Care Provider [phone] Encounter Details Date Type Department Care Team (Late st Contact Info) Description 09/11/2014 10:00 AM EDT [place] [address] Dion Barlow MD [facility] [place] [address] Ulcerative colitis, other complication (Primary Dx) Discharge [...] the sigmoid nl ?? Repeat exam 11/27/11 ([facility] mildly active colitis in [...] 6 months or sooner. Davina Barlow MD [employer] outfit supervisor Section of Gastroenterology [place] [address] documented in this encounter Plan of Treatment Upcoming Encounters Date Type Department Care Team (Late st Contact Info) Description 07/29/2024 Hospital Encounter Heart and Vascular Unit Level [place] [address] Faheem Joy MD [facility] [place] [address] 08/15/2024 9:00 AM EDT Office [place] [phone] Dion Barlow MD [facility] [place] [address] 09/01/2024 9:40 AM EDT Office Visit Cardiology at [address] [place] [address] Franky Shaver MD [facility] [place] [address] 09/01/2024 11:20 AM EDT Office Visit Dermatology at [facility] [address] [place] [address] Gómez Mercer MD [facility] DR [place] [address] 09/21/2024 2:45 PM EDT Office Visit Pain and Spine Center at [facility] [place] [place] [address] Trung Hoyos MD [facility] [place] [address] documented as of this encounter Visit Diagnoses Diagnosis Ulcerative colitis, other complication- Primary documented in this encounter Care Teams Extension Forester Relationship Specialty Start Date End Date Maximilian Fall MD [address] [place] [address] PCP - General 10/01/11 02/13/21 documented as of this encounter
--- OUTSIDE RECORDS SUMMARY | 2024-07-27 21:09 | XMS_ITS | Encounter Summary ---
[place] [address] Care Team Providers Care Senior Quality Manager Name Role Phone Maximilian Fall MD Primary Care Provider [phone] Encounter Details Date Type Department Care Team (Latest Contact Info) Description 11/06/2015 10:15 AM EST Laboratory Appointment Lab [address] [place] [phone] Ulcerative colitis, without complications; Diarrhea; Pain in [...] Vascular Unit Level 4 [place] [address] Faheem Joy MD [facility] [address] 08/15/2024 9:00 AM EDT Office [place] [address] Dion Barlow MD [facility] [place] [address] 09/01/2024 9:40 AM EDT Office Visit Cardiology at [address] [address] Franky Shaver MD [facility] [address] 09/01/2024 11:20 AM EDT Office Visit Dermatology at [address] [address] Gómez Mercer MD [facility] DR EDDEI [place] [address] 09/21/2024 2:45 PM EDT Office Visit [place] [address] Trung Hoyos MD [facility] [place] [address] documented as of this encounter Procedures Procedure Name Priority Date/Time Associated Diagnosis Comments C. DIFFICILE SCREEN Routine 11/06/2015 2 :30 PM EST Pain in right hip Bilateral low back pain, with sciatica presence unspecified Abdominal pain, unspecified abdominal location Chronic ulcerative enterocolitis, unspecified complication STOOL CULTURE SCREEN ([facility]/CGP/APD/[facility]) Routine 11/06/2015 1:49 PM EST Pain in [...] ulcerative enterocolitis, unspecified complication CRYPTOSPORIDIUM OOCYST ANTIGEN ([facility]/CGP/APD) Routine 11/06/2015 1:09 PM EST Pain in right hip Bilateral low back pain, with sciatica presence unspecified Abdominal pain, unspecified abdominal location Chronic ulcerative enterocolitis, unspecified complication GIARDIA/CRYPTOSPORIDIUM ANTIGENS ([facility]/CGP/APD/NLH) Routine 11/06/2015 1:09 PM EST Pain in right hip Bilateral low back pain, with sciatica presence unspecified Abdominal pain, unspecified abdominal location Chronic ulcerative enterocolitis, unspecified complication GIARDIA ANTIGEN ([facility]/CGP/APD/NLH) Routine 11/06/2015 1:09 PM EST Pain in [...] PM EST) C Diff Interp Negative Negative [facility] Stool specimen (specimen) 11/06/2015 2:30 PM EST 11/06/2015 2:30 PM EST Narrative Resulting Agency Comment Spec In Lab L Karthik Barlow MD MICROBIOLOGY - GENER AL ORDERABLES Performing Organization Address [facility] Co de Phone Number [facility] * Shiga Toxin Detection (11/06/2015 1:49 PM EST) Shiga Toxin Assay EIA Negative for Shiga Toxin 1 EIA Negative for Shiga Toxin 2 [facility] Stool specimen (specimen) 11/06/2015 1:49 PM EST 11/06/2015 2:33 PM EST Narrative Resulting Agency Comment Spec In Lab L Karthik Barlow MD MICROBIOLOGY - GENER AL ORDERABLES Performing Organization Address [facility] Co de Phone Number [facility] * Campylobacter Antigen (11/06/2015 1:49 PM EST) Campylobacter Ag Immunoassay Negative for Campylobacter Antigen [facility] Stool specimen (specimen) 11/06/2015 1:49 PM EST 11/06/2015 2:33 PM EST Narrative Resulting Agency Comment Spec In Lab L Karthik Barlow MD MICROBIOLOGY - GENER AL ORDERABLES Performing Organization Address [facility] de Phone Number [facility] * Stool culture (11/06/2015 1:49 PM EST) Stool Culture No enteric pathogens isolated [facility] Stool specimen (specimen) 11/06/2015 1:49 PM EST 11/06/2015 2:33 PM EST Narrative Resulting Agency Comment Spec In Lab L Karthik Barlow MD MICROBIOLOGY - GENER AL ORDERABLES Performing Organization Address [facility] Phone Number [facility] * Cryptosporidium Oocyst Antigen (11/06/2015 1:09 PM EST) Cryptosporidium Antigen Negative Negative [facility] Stool specimen (specimen) 11/06/2015 1:09 PM EST 11/06/2015 2:28 PM EST Narrative Resulting Agency Comment Spec In Lab L Karthik Barlow MD MICROBIOLOGY - GENER AL ORDERABLES Performing Organization Address [facility] Phone Number [facility] * Giardia antigen (11/06/2015 1:09 PM EST) Giardia Antigen Negative Negative [facility] Comment:Examination for othe r intestinal parasites requires foreign travel history. Stool specimen (specimen) 11/06/2015 1:09 PM EST 11/06/2015 2:28 PM EST Narrative Resulting Agency Comment Spec In Lab L Karthik Barlow MD MICROBIOLOGY - GENER AL ORDERABLES Performing Organization Address [facility] de Phone Number [facility] * (ABNORMAL) Urine culture (11/06/2015 1:00 PM EST) Urine Culture 50,000-99,000 cfu/ml Escherichia coli(A) [facility] Organism Escherichia coli(A) [facility] Urine specimen obtained by clean catch procedure [...] Barlow MD MICROBIOLOGY - GENER AL ORDERABLES [employer] * (ABNORMAL) Urinalysis with reflex Culture (11/06/2015 [...] Urine Dipstick Hazy(A) Clear CERNER MILLENNIUM Specific [place] Urine Automated 1.020 1.002 - 1.030 CERNER [...] MD HEMATOLOGY ORDERABLE S Performing Organization Address City/[facility]/ZIP Co de Phone Number [facility] ORDO[facility] * (ABNORMAL) Hemogram (11/06/2015 10:24 [...] MD HEMATOLOGY ORDERABLE S [facility] COLBERT[facility] * (ABNORMAL) Sedimentation rate (11/06/2015 10:24 AM EST) Sedimentation Rate Automated 22(H) 0 - 15 mm/hr CERNER MILLENNIUM Blood specimen (specimen) 11/06/2015 10:24 AM EST 11/06/2015 10:28 AM EST Narrative Resulting Agency Comment Spec In Lab L Karthik Barlow MD HEMATOLOGY ORDERABLE S CERNER MILLENNIUM * (ABNORMAL) Comprehensive metabolic panel (non-fasting) (11/06/2015 10:24 AM EST) Glucose 81 65 - 199 mg/dL [facility] MILLENNIUM Comment:Diabetes: >=200 mg/d L plus symptoms Blood Urea Nitrogen 14 10 - 20 mg/dL CERNER MILLENNIUM Creatinine 1.15 0.80 - 1.50 mg/dL [facility]ERN[facility] MILLENNIUM Comment: Please note that the pediatric reference intervals supplied above were not validated at [facility]. Results from pediatric patients should be interpreted [...] MILLENNIUM Est Glomerular Filtration Rate >60 >=60 [facility] Comment: This estimated GFR (eGFR) value was [...] the following links into your internet browser. [email or web address] Blood specimen (specimen) 11/06/2015 10:24 AM EST 11/06/2015 10:28 AM EST Narrative Resulting Agency Comment Spec In Lab L Karthik Barlow MD CHEMISTRY ORDERABLES [facility] * High Sensitivity CRP (11/06/2015 10:24 AM EST) C-Reactive Protein High Sensitivity 7.9 mg/L [facility] [employer] Comment: Interpretations: 1) For accurate cardiac risk [...] Barlow MD CHEMISTRY ORDERABLES Performing Organization Address City/State/[facility] Co de Phone Number [facility] documented in this encounter Visit Diagnoses Diagnosis Ulcerative colitis, without complications Diarrhea Pain in right hip Pain in joint, pelvic region and thigh Bilateral low back pain, with sciatica presence unspecified Abdominal pain, unspecified abdominal location Chronic ulcerative enterocolitis, unspecified complication documented in this encounter Care Teams Senior Quality Manager Relationship Specialty Start Date End Date Maximilian Fall MD [address] [place] [address] PCP - General 10/01/11 02/13/21 documented as of this encounter
--- OUTSIDE RECORDS SUMMARY | 2024-07-27 21:09 | XMS_ITS | Encounter Summary ---
[place] [address] Care Team Providers Care Councillor Aboriginal Land Council Name Role Phone Maximilian Fall MD Primary Care Provider [phone] Encounter Details Date Type Department Care Team (Late st Contact Info) Description 03/13/2016 - 03/13/2016 11:59 PM EDT Hospital Encounter [place] [address] [address] Thomas Temporary Pain Discharge Disposition: Home [...] Vascular Unit Level 4 [place] [address] Faheem Joy MD [facility] [place] [address] 08/15/2024 9:00 AM EDT Office [place] [address] Dion Barlow MD [facility] [place] [address] 09/01/2024 9:40 AM EDT Office Visit Cardiology at [address] [address] Franky Shaver MD [facility] [place] [address] 09/01/2024 11:20 AM EDT Office Visit Dermatology at [facility] [address] [place] [address] Gómez Mercer MD [facility] [place] [address] 09/21/2024 2:45 PM EDT Office Visit Pain and Spine Center at [facility] [place] [address] Trung Hoyos MD [facility] [place] [address] documented as of this encounter Procedures Procedure Name Priority Date/Time Associated Diagnosis Comments FILM LIBRARY STORAGE ONLY CT ABDOMEN AND PELVIS Routine 03/13/2016 12:00 AM EDT Pain documented in this encounter Results * Film Library- Storage Only CT Abdomen & Pelvis (03/13/2016 12:00 AM EDT) Narrative [facility] - 03/22/2016 8:20 AM EDT This exam is for storage only and is auto-finalizing. [facility] FILM LIBRARY ORD ERABLES [place], [place] documented in this encounter Visit Diagnoses Diagnosis Pain Generalized pain documented in this encounter Care Teams Councillor Aboriginal Land Council Relationship Specialty Start Date End Date Maximilian Fall MD [address] [place] [address] PCP - General 10/01/11 02/13/21 documented as of this encounter
--- OUTSIDE RECORDS SUMMARY | 2024-07-27 21:09 | XMS_ITS | Encounter Summary ---
[place] [address] Care Team Providers Care Trolley Coach Driver Name Role Phone Maximilian Fall MD Primary Care Provider [phone] Encounter Details Date Type Department Care Team (Late st Contact Info) Description 03/21/2016 - 03/21/2016 11:59 PM EDT Hospital Encounter [place] [address] Dr Thomas Temporary Pain Discharge Disposition: Home [...] Vascular Unit Level 4 [place] [address] Faheem Joy MD [facility] [place] [address] 08/15/2024 9:00 AM EDT Office [place] [address] Dion Barlow MD [facility] [place] [place] [address] 09/01/2024 9:40 AM EDT Office Visit Cardiology at [address] [address] Franky Shaver MD [facility] [place] [address] 09/01/2024 11:20 AM EDT Office Visit Dermatology at [facility] [address] [place] [address] Góemz Mercer MD [facility] [place] [address] 09/21/2024 2:45 PM EDT Office Visit Pain and Spine Center at [facility] [place] [address] Trung Hoyos MD [facility] [place] [address] documented as of this encounter Procedures Procedure Name Priority Date/Time Associated Diagnosis Comments FILM LIBRARY STORAGE ONLY CT ABDOMEN AND PELVIS Routine 03/21/2016 12:00 AM EDT Pain documented in this encounter Results * Film Library- Storage Only CT Abdomen & Pelvis (03/21/2016 12:00 AM EDT) Narrative [facility] - 03/21/2016 7:24 PM EDT This exam is for storage only and is auto-finalizing. Dr [facility] FILM LIBRARY ORD ERABLES [place], [place] documented in this encounter Visit Diagnoses Diagnosis Pain Generalized pain documented in this encounter Care Teams Trolley Coach Driver Relationship Specialty Start Date End Date Maximilian Fall MD [address] [place] [address] PCP - General 10/01/11 02/13/21 documented as of this encounter
--- OUTSIDE RECORDS SUMMARY | 2024-07-27 21:09 | XMS_ITS | Encounter Summary ---
Author Organization [facility] Address [facility] [place] [address] Care Team Providers Care Lining Inserter Name Role Phone Maximilian Fall MD Primary Care Provider Reason for Visit * Reason Comments Follow-up Encounter Details Date Type Department Care Team (Latest Contact Info) Description 11/10/2016 8:30 AM EST Office Visit [place] [address] Dion Barlow MD [facility] [place] [address] Ulcerative rectosigmoiditis with rectal bleeding Social History [...] Overview Note: ?? Colonoscopy 04/08/10 (Dr. Gomes [facility]) - inflammation only within the rectum [...] months. 20 min of this 25 min [id number] visit was spent counseling the patient in the issues outlined above. Davina Barlow MD Dough Mixer Operatorside framer Section of Gastroenter[place] [address] documented in this encounter Plan of Treatment Upcoming Encounters Date Type Department Care Team (Late st Contact Info) Description 07/29/2024 Hospital Encounter Heart and Vascular Unit Level 4 [place] [address] Faheem Joy MD [facility] [place] [address] 08/15/2024 9:00 AM EDT Office Visit G[place] [address] Dion Barlow MD [facility] [place] [address] 09/01/2024 9:40 AM EDT Office Visit Cardiology at [address] [place] [address] Franky Shaver MD [facility] [place] [address] 09/01/2024 11:20 AM EDT Office Visit Dermatology at [facility] [place] [address] [place] [address] Gómez Mercer MD [facility] DR EDDIE [place] [address] 09/21/2024 2:45 PM EDT Office Visit [facility] [place] [address] Trung Hoyos MD [facility] [place] [address] Scheduled Orders Name Type Priority Associated Diagnoses Orde r Schedule COLONOSCOPY Procedures Routine Ulcerative rectosigmoiditis with rectal bleeding Ordered: 11/10/2016 documented as of this encounter Visit Diagnoses Diagnosis Ulcerative rectosigmoiditis with rectal bleeding documented in this encounter Care Teams Lining Inserter Relationship Specialty Start Date End Date Maximilian Fall MD [address] [place] [address] PCP - General 10/01/11 02/13/21 documented as of this encounter
--- OUTSIDE RECORDS SUMMARY | 2024-07-27 21:09 | XMS_ITS | Encounter Summary ---
Author Organization [facility] [place] [address] Care Team Providers Care Food Tray Assembler Name Role Phone Maximilian Fall MD Primary Care Provider [phone] Encounter Details Date Type Department Care Team (Late st Contact Info) Description 11/08/2015 Orders [place] [address] Marcelle Weinberg, FRONT OF HOUSE MANAGER [facility] [place] [address] Urinary tract infection without hematuria, site unspecified [...] this encounter Progress Notes * Marcelle Weinberg, FRONT OF HOUSE MANAGER - 11/08/2015 5:53 PM EST I spoke [...] UA Latest Range: Clear Hazy (A) Spec [place] UA Latest Range: 1.002-1.030 1.020 pH UA [...] Vascular Unit Level [place] [address] Faheem Joy MD [facility] [place] [address] 08/15/2024 9:00 AM EDT Office [place] [address] Dion Barlow MD [facility] [place] [address] 09/01/2024 9:40 AM EDT Office Visit Cardiology at [address] [address] Franky Shaver MD [facility] [place] [address] 09/01/2024 11:20 AM EDT Office Visit Dermatology at [address] [address] Gómez Mercer MD [facility] [place] [address] 09/21/2024 2:45 PM EDT Office Visit [facility] [place] [address] Trung Hoyos MD [facility] [place] [address] documented as of this encounter Visit Diagnoses Diagnosis Urinary tract infection without hematuria, site unspecified documented in this encounter Care Teams Food Tray Assembler Relationship Specialty Start Date End Date Maximilian Fall MD [address] [place] [address] [address] [facility] 1 [place] [address] PCP - General 10/01/11 02/13/21 documented as of this encounter
--- OUTSIDE RECORDS SUMMARY | 2024-07-27 21:09 | XMS_ITS | Encounter Summary ---
Author Organization [facility] [place] [address] Care Team Providers Care Gas Pumping Station Operator Name Role Phone Maximilian Fall MD Primary Care Provider [phone] Encounter Details Date Type Department Care Team (Late st Contact Info) Description 09/21/2015 Telephone [place] [address] Marcelle Weinberg, BRAKE LINER [facility] [place] [address] Social History Tobacco Use Types Packs/Day Years [...] Vascular Unit Level [place] [address] Faheem Joy MD [facility] [place] [address] 08/15/2024 9:00 AM EDT Office Visit [place] [address] Dion Barlow MD [facility] [place] [address] 09/01/2024 9:40 AM EDT Office Visit Cardiology at [address] [phone] Franky Shaver MD [facility] [place] [address] 09/01/2024 11:20 AM EDT Office Visit Dermatology at [facility] [address] [place] [address] Gómez Mercer MD [facility] DR EDD[place] [address] 09/21/2024 2:45 PM EDT Office Visit Pain and Spine Center at [facility] [place] [address] Trung Hoyos MD [facility] [place] [address] documented as of this encounter Visit Diagnoses Not on filedocumented in this encounter Care Teams Gas Pumping Station Operator Relationship Specialty Start Date End Date Maximilian Fall MD [address] [place] [address] PCP - General 10/01/11 02/13/21 documented as of this encounter
--- OUTSIDE RECORDS SUMMARY | 2024-07-27 21:09 | XMS_ITS | Encounter Summary ---
Author Organization [facility] Address [facility] [place] [address] Care Team Providers Care Loop Tacker Name Role Phone Maximilian Fall MD Primary Care Provider [phone] Reason for Visit * Reason Comments Follow-up Encounter Details Date Type Department Care Team (Late st Contact Info) Description 12/04/2015 3:30 PM EST Office Visit G[place] [address] Marcelle Weinberg, JAZMINE [facility] [place] [address] Other ulcerative colitis Social History Tobacco Use [...] Overview Note: ?? Colonoscopy 04/08/10 ([facility] [...] to move his bowels. Still formed stool. [place] better after defecation. Eating well. Weight stable. [...] COLONOSCOPY, DIAGNOSTIC performed by Dion OSULLIVAN at [facility] ??? Pro sigmoidoscopy, diagnostic 03/16/2012 FLEXIBLE SIGMOIDOSCOPY performed by YUDI MALLOY at [facility] ??? Upper gi endoscopy, exam 10/01/2012 UPPER GI ENDOSCOPY performed by Dion OSULLIVAN at [facility] ??? Pro colonoscopy, diagnostic 07/13/2014 COLONOSCOPY, DIAGNOSTIC performed by Dion Osullivan MD at [facility] History Social History ??? Marital [...] UA Latest Range: Clear Hazy (A) Spec [place] UA Latest Range: 1.002-1.030 1.020 pH UA [...] Vascular Unit Level 4 Wing A at [place] [phone] Faheem Joy MD [facility] [place] [address] 08/15/2024 9:00 AM EDT Office [place] [address] Dion Osullivan MD [facility] [place] [address] 09/01/2024 9:40 AM EDT Office Visit Cardiology at [address] [address] Franky Shaver MD [facility] [place] [address] 09/01/2024 11:20 AM EDT Office Visit Dermatology at [place] [address] [place] [address] Gómez Mercer MD [facility] [place] [address] 09/21/2024 2:45 PM EDT Office Visit Pain and Spine Center at [place] [phone] Trung Hoyos MD [facility] [place] [address] documented as of this encounter Visit Diagnoses Diagnosis Other ulcerative colitis documented in this encounter Care Teams Loop Tacker Relationship Specialty Start Date End Date Maximilian Fall MD [address] [place] [address] PCP - General 10/01/11 02/13/21 documented as of this encounter
--- OUTSIDE RECORDS SUMMARY | 2024-07-27 21:09 | XMS_ITS | Encounter Summary ---
Author Organization [facility] [place] [address] Care Team Providers Care Electric Stop Installer Name Role Phone Maximilian Fall MD Primary Care Provider [phone] Encounter Details Date Type Department Care Team (Late st Contact Info) Description 07/07/2016 Telephone [place] [phone] Bethany Trivedi RN Social History Tobacco Use [...] approved 07/07/16 until furhter notice Rolf id# [id number] * Telephone Encounter - Bethany Trivedi RN - 07/07/2016 12:10 PM EDT Formulary exception form sent in for Cortifoam enemas documented in this encounter Plan of Treatment Upcoming Encounters Date Type Department Care Team (Late st Contact Info) Description 07/29/2024 Hospital Encounter Heart and Vascular Unit Level [place] [address] Faheem Joy MD [facility] [place] [address] 08/15/2024 9:00 AM EDT Office [place] [address] Dion Barlow MD [facility] [place] [address] 09/01/2024 9:40 AM EDT Office Visit Cardiology at [address] [address] Franky Shaver MD [facility] CARDIOLOGY [place], [place] [address] 09/01/2024 11:20 AM EDT Office Visit Dermatology at [address] [address] Gómez Mercer MD [facility] [place] [address] 09/21/2024 2:45 PM EDT Office Visit [place] [address] Trung Hoyos MD [facility] [place] [address] documented as of this encounter Visit Diagnoses Not on filedocumented in this encounter Care Teams Electric Stop Installer Relationship Specialty Start Date End Date Maximilian Fall MD [address] [place] [address] [address] [place] [address] PCP - General 10/01/11 02/13/21 documented as of this encounter
--- OUTSIDE RECORDS SUMMARY | 2024-07-27 21:09 | XMS_ITS | Encounter Summary ---
Author Organization [facility] [place] [address] Care Team Providers Care Business Unit Director Name Role Phone Maximilian Fall MD Primary Care Provider [phone] Encounter Details Date Type Department Care Team (Late st Contact Info) Description 07/07/2016 Telephone [place] [address] Bethany Trivedi RN Social History Tobacco Use [...] Vascular Unit Level 4 Wing A at [place] [phone] Faheem Joy MD [facility] [place] [place] [address] 08/15/2024 9:00 AM EDT Office Visit Gastroenterology at [address] Dion Barlow MD [facility] [place] [address] 09/01/2024 9:40 AM EDT Office Visit Cardiology at [address] [address] Franky Shaver MD [facility] [place] [address] 09/01/2024 11:20 AM EDT Office Visit Dermatology at [address] [place] [address] Gómez Mercer MD [facility] DR [place] [address] 09/21/2024 2:45 PM EDT Office Visit Pain and Spine Center at [place] [phone] Trung Hoyos MD [facility] [place] [address] documented as of this encounter Results * C. Difficile Screen (07/18/2016 2:32 PM EDT) Pathologist [facility] C Diff Interp Negative Negative [facility] Comment: C. diff ??Negative Clostridium difficile is not present in the specimen. If patient is having diarrhea suspected to be from an infectious cause, then Contact Precautions are still required. Stool specimen (specimen) 07/18/2016 2:32 PM EDT 07/18/2016 2:32 PM EDT Narrative Resulting Agency Comment Spec In Lab L Karthik Barlow MD MICROBIOLOGY - GENER AL ORDERABLES Performing Organization Address [facility]/ZIP Co de Phone Number [facility] [place] [address] * (ABNORMAL) Sedimentation rate (07/14/2016 12:21 PM EDT) [facility] Sedimentation Rate Automated 17(H) 0 - 15 mm/hr [facility] Blood specimen (specimen) 07/14/2016 12:21 PM EDT 07/14/2016 12:29 PM EDT Narrative Resulting Agency Comment Spec In Lab L Karthik Barlow MD HEMATOLOGY ORDERABLE S Performing Organization Address [facility] Co de Phone Number [facility] [place] [address] * Comprehensive metabolic panel (non-fasting) (07/14/2016 12:21 PM EDT) [facility] Glucose 147 65 - 199 mg/dL [facility] Comment:Diabetes: >=200 mg/d L plus symptoms Blood Urea Nitrogen 17 10 - 20 mg/dL [facility] Creatinine 1.04 0.80 - 1.50 mg/dL [facility] Comment: Please note that the pediatric reference intervals supplied above were not validated at [facility]. Results from pediatric patients should be interpreted [...] the following links into your internet browser. [email or web address] Blood specimen (specimen) 07/14/2016 12:21 PM EDT 07/14/2016 12:29 PM EDT Narrative Resulting Agency Comment Spec In Lab L Karthik Barlow MD CHEMISTRY ORDERABLES Performing Organization Address City/[facility] Co de Phone Number [facility] [place] [address] * High Sensitivity CRP (07/14/2016 12:21 PM EDT) C-Reactive Protein High Sensitivity 4.8 mg/L [place] [...] ORDERABLES Performing Organization Address [facility] Co de Phone Number [facility] [place] [address] documented in this encounter Visit Diagnoses Diagnosis Chronic ulcerative enterocolitis, unspecified complication 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
--- OUTSIDE RECORDS SUMMARY | 2024-07-27 21:09 | XMS_ITS | Encounter Summary ---
Author Organization [facility] [place] [address] Care Team Providers Care Abrasive Grader Name Role Phone Maximilian Fall MD Primary Care Provider [phone] Reason for Visit * Reason Comments Follow-up Encounter Details Date Type Department Care Team (Late st Contact Info) Description 11/06/2015 11:00 AM EST Office [place] [address] Marcelle Weinberg, JAZMINE [facility] [place] [address] Chronic ulcerative enterocolitis, unspecified complication; Abdominal pain, [...] Progress Notes * Marcelle Weinberg Dg Conte, [employer] - 11/06/2015 10:28 AM EST Patient Active Problem List Diagnosis ??? Ulcerative colitis Overview Note: ?? Colonoscopy 04/08/10 (Dr. Gomes [facility]) - inflammation only within the rectum and sigmoid; extent of the exam was to the hepatic flexure; biopsies proximal to the sigmoid nl ?? Repeat exam 11/27/11 ([facility] mildly active colitis [...] COLONOSCOPY, DIAGNOSTIC performed by Dion OSULLIVAN at [facility]COPY ??? Pro sigmoidoscopy, diagnostic 03/16/2012 FLEXIBLE SIGMOIDOSCOPY performed by YUDI MALLOY at [facility] ??? Upper gi endoscopy, exam 10/01/2012 UPPER GI ENDOSCOPY performed by Dion OSULLIVAN at [facility] ??? Pro colonoscopy, diagnostic 07/13/2014 COLONOSCOPY, DIAGNOSTIC performed by Dion Osullivan MD at [facility] Physical Exam Constitutional: He appears [...] Vascular Unit Level 4 [place] [address] Faheem Joy MD [facility] [place] [address] 08/15/2024 9:00 AM EDT Office [place] [address] Dion Osullivan MD [facility] [place] [address] 09/01/2024 9:40 AM EDT Office Visit Cardiology at [address] [address] Franky Shaver MD [facility] [place] [address] 09/01/2024 11:20 AM EDT Office Visit Dermatology at [place] [address] [place] [address] Gómez Mercer MD [facility] DR EDDIE [place] [address] 09/21/2024 2:45 PM EDT Office Visit [facility] [place] [address] Trung Hoyos MD [facility] [place] [address] documented as of this encounter Results * C. Difficile Screen (11/06/2015 2:30 PM EST) C Diff Interp Negative Negative [facility] Stool specimen (specimen) 11/06/2015 2:30 PM EST 11/06/2015 2:30 PM EST Narrative Resulting Agency Comment Spec In Lab L Karthik Osullivan MD MICROBIOLOGY - GENER AL ORDERABLES [facility] * (ABNORMAL) Urinalysis with reflex Culture [...] Urine Dipstick Hazy(A) Clear CERNER MILLENNIUM Specific [place] Urine Automated 1.020 1.002 - 1.030 CERNER [...] L Karthik Osullivan MD URINE ORDERABLES CERNER [email or web address] * XR Abdomen Flat And Upright (11/06/2015 [...] complication documented in this encounter Care Teams Abrasive Grader Relationship Specialty Start Date End Date Maximilian Fall MD [address] [place] [address] PCP - General 10/01/11 02/13/21 documented as of this encounter
--- OUTSIDE RECORDS SUMMARY | 2024-07-27 21:09 | XMS_ITS | Encounter Summary ---
Author Organization Counts Include [facility] Address [facility] [place] [address] Care Team Providers Care Short Order Fry Cook Name Role Phone Maximilian Fall MD Primary Care Provider [phone] Reason for Visit * Reason Comments Follow-up Encounter Details Date Type Department Care Team (Late st Contact Info) Description 09/17/2015 4:00 PM EDT Office Visit [place] [address] Marcelle Weinberg, JAZMINE [facility] [place] [address] Left sided colitis, unspecified complication Social History [...] Note: ?? Colonoscopy 04/08/10 (Dr. Gomes [facility] [...] Vascular Unit Level 4 [place] [address] Faheem Joy MD [facility] [place] [address] 08/15/2024 9:00 AM EDT Office Visit [place] [address] Dion Barlow MD [facility] [place] [address] 09/01/2024 9:40 AM EDT Office Visit Cardiology at [address] [address] Franky Shaver MD [facility] [place] [address] 09/01/2024 11:20 AM EDT Office Visit Dermatology at [facility] [address] [place] [address] Gómez Mercer MD [facility] DR [place] [address] 09/21/2024 2:45 PM EDT Office Visit Pain and Spine Center at [facility] [place] [address] Trung Hoyos MD [facility] [place] [address] documented as of this encounter Procedures Procedure [...] ORDERABLE S CERNER MILLENNIUM * (ABNORMAL) Hemogram (09/17/2015 4:30 PM EDT) [...] Volume 11.5 9.0 - 12.0 fL [facility] Blood specimen (specimen) 09/17/2015 4:30 PM EDT 09/17/2015 4:33 PM EDT Narrative Resulting Agency Comment Spec In Lab L Karthik Barlow MD HEMATOLOGY ORDERABLE S Performing Organization Address [facility] [[email or web address]] de Phone Number [facility] * High Sensitivity CRP (09/17/2015 4:30 PM EDT) C-Reactive Protein High Sensitivity 2.9 mg/L [facility] Comment: Interpretations: 1) For accurate cardiac [...] Organization Address [email or web address]] de Phone Number [facility] * (ABNORMAL) Sedimentation rate (09/17/2015 4:30 PM EDT) Sedimentation Rate Automated 17(H) 0 - 15 mm/hr [facility] Blood specimen (specimen) 09/17/2015 4:30 PM EDT 09/17/2015 4:33 PM EDT Narrative Resulting Agency Comment Spec In Lab L Karthik Barlow MD HEMATOLOGY ORDERABLE S [facility] * (ABNORMAL) CMP w/fasting Glucose (09/17/2015 4:30 [...] of Diabetes Mellitus, Position Statement from the [place] [employer]. ??Diabetes Care, Volume 33, Supplement [...] the following links into your internet browser. [email or web address] Blood specimen (specimen) 09/17/2015 4:30 PM EDT 09/17/2015 4:33 PM EDT Narrative Resulting Agency Comment Spec In Lab L Karthik Barlow MD CHEMISTRY ORDERABLES [facility] YOLY documented in this encounter Visit Diagnoses Diagnosis Left sided colitis, unspecified complication documented in this encounter Care Teams Short Order Fry Cook Relationship Specialty Start Date End Date Maximilian Fall MD [address] [place] [address] PCP - General 10/01/11 02/13/21 documented as of this encounter
--- OUTSIDE RECORDS SUMMARY | 2024-07-27 21:09 | XMS_ITS | Encounter Summary ---
Author Organization [facility] Address [facility] [place] [address] Care Team Providers Care Freelance Makeup Artist Name Role Phone Maximilian Fall MD Primary Care Provider [phone] Reason for Visit * Reason Comments Follow-up Encounter Details Date Type Department Care Team (Late st Contact Info) Description 05/16/2016 10:30 AM EDT Office Visit [place] [address] Dion Barlow MD [facility] [place] [address] Other ulcerative colitis with complication Social History [...] Overview Note: ?? Colonoscopy 04/08/10 (Dr. Gomes [facility]) [...] months. 10 min of this 15 min [id number] visit was spent counseling the patient in the issues outlined above. Davina Barlow MD Photographic Coloristemployee relations representative Section of Gastroenterology [place] [address] documented in this encounter Plan of Treatment Upcoming Encounters Date Type Department Care Team (Late st Contact Info) Description 07/29/2024 Hospital Encounter Heart and Vascular Unit Level 4 [place] [address] Faheem Joy MD [facility] [place] [address] 08/15/2024 9:00 AM EDT Office Visit Gastroenterology at [place] [phone] Dion Barlow MD [facility] [place] [address] 09/01/2024 9:40 AM EDT Office Visit Cardiology at [address] [address] Franky Shaver MD [facility] [place] [address] 09/01/2024 11:20 AM EDT Office Visit Dermatology at [place] [address] [place] [phone] Góemz Mercer MD [facility] [place] [facility] [place] [address] 09/21/2024 2:45 PM EDT Office Visit Pain and Spine Center at [place] [phone] Trung Hoyos MD [facility] [place] [address] documented as of this encounter Visit Diagnoses Diagnosis Other ulcerative colitis with complication documented in this encounter Care Teams Freelance Makeup Artist Relationship Specialty Start Date End Date Maximilian Fall MD [address] [facility] [place] [address] PCP - General 10/01/11 02/13/21 documented as of this encounter
--- OUTSIDE RECORDS SUMMARY | 2024-07-27 21:09 | XMS_ITS | Encounter Summary ---
Author Organization [facility] [place] [address] Care Team Providers Care Medical Referral Coordinator Name Role Phone Maximilian Fall MD Primary Care Provider [phone] Encounter Details Date Type Department Care Team (Latest Contact Info) Description 07/18/2016 2:18 PM EDT - 07/18/2016 11:59 PM EDT [place] [address] Left sided colitis, unspecified complication; Chronic ulcerative [...] Vascular Unit Level 4 [place] [phone] Faheem Joy MD [facility] [place] [address] 08/15/2024 9:00 AM EDT Office [place] [phone] Dion Barlow MD [facility] [place] [address] 09/01/2024 9:40 AM EDT Office Visit Cardiology at [address] [place] [phone] Franky Shaver MD [facility] [place] [address] 09/01/2024 11:20 AM EDT Office Visit Dermatology at [facility] [address] [place] [address] Gómez Mercer MD [facility] DR [place] [address] 09/21/2024 2:45 PM EDT Office Visit Pain and Spine Center at [address] [place] [address] Trung Hoyos MD [facility] [place] [address] documented as of this encounter Procedures Procedure Name Priority Date/Time Associated Diagnosis Comments CAMPYLOBACTER ANTIGEN Routine 07/18/2016 2:32 PM EDT Chronic ulcerative enterocolitis, unspecified complication Acute amebic dysentery C. DIFFICILE SCREEN Routine 07/18/2016 2 :32 PM EDT Chronic ulcerative enterocolitis, unspecified complication Acute amebic dysentery STOOL CULTURE SCREEN ([facility]) Routine 07/18/2016 2:27 PM EDT Chronic ulcerative enterocolitis, unspecified complication Acute amebic dysentery CRYPTOSPORIDIUM OOCYST ANTIGEN ([facility]/APD) Routine 07/18/2016 2:27 PM EDT Left sided colitis, unspecified complication SHIGA TOXIN ASSAY Routine 07/18/2016 2:2 7 PM EDT Chronic ulcerative enterocolitis, unspecified complication Acute amebic dysentery GIARDIA/CRYPTOSPORIDIUM ANTIGENS ([facility]/APD/NLH) Routine 07/18/2016 2:27 PM EDT Left sided colitis, unspecified complication GIARDIA ANTIGEN ([facility]/APD/NLH) Routine 07/18/2016 2:27 PM EDT Left sided colitis, unspecified complication STOOL CULTURE Routine 07/18/2016 2:27 PM EDT Chronic ulcerative enterocolitis, unspecified complication Acute amebic dysentery documented in this encounter Results * Campylobacter Antigen (07/18/2016 2:32 PM EDT) Campylobacter Ag Immunoassay Negative for Campylobacter Antigen [facility] Stool specimen (specimen) 07/18/2016 2:32 PM EDT 07/18/2016 2:32 PM EDT Narrative Resulting Agency Comment Spec In Lab L Karthik Barlow MD MICROBIOLOGY - GENER AL ORDERABLES Performing Organization Address [facility] Co de Phone Number [facility] [place] [address] * C. Difficile Screen (07/18/2016 2:32 PM [...] - GENER AL ORDERABLES Performing Organization Address City/[facility]/ZIP Co de Phone Number [facility] [place] [address] * Shiga Toxin Detection (07/18/2016 2:27 PM EDT) Shiga Toxin Assay EIA Negative for Shiga Toxin 1 EIA Negative for Shiga Toxin [address] [facility] Stool specimen (specimen) 07/18/2016 2:27 PM EDT 07/18/2016 2:32 PM EDT Narrative Resulting Agency Comment Spec In Lab Dion Barlow MD MICROBIOLOGY - GENER AL ORDERABLES Performing Organization Address City/[facility]/ZIP Co de Phone Number [facility] [place] [address] * Stool culture (07/18/2016 2:27 PM EDT) Stool Culture No enteric pathogens isolated [facility] Stool specimen (specimen) 07/18/2016 2:27 PM EDT 07/18/2016 2:32 PM EDT Narrative Resulting Agency Comment Spec In Lab L Karthik Barlow MD MICROBIOLOGY - GENER AL ORDERABLES Performing Organization Address City/[facility]/ZIP Co de Phone Number [facility] [place] [address] * Cryptosporidium Oocyst Antigen (07/18/2016 2:27 PM EDT) Cryptosporidium Antigen Negative Negative [facility] Stool specimen (specimen) 07/18/2016 2:27 PM EDT 07/18/2016 2:32 PM EDT Narrative Resulting Agency Comment Spec In Lab L Karthik Barlow MD MICROBIOLOGY - GENER AL ORDERABLES Performing Organization Address [facility] Co de Phone Number [facility] [place] [address] * Giardia antigen (07/18/2016 2:27 PM EDT) Giardia Antigen Negative Negative [facility] Comment:Examination for othe r intestinal parasites requires foreign travel history. Stool specimen (specimen) 07/18/2016 2:27 PM EDT 07/18/2016 2:32 PM EDT Narrative Resulting Agency Comment Spec In Lab L Karthik Barlow MD MICROBIOLOGY - GENER AL ORDERABLES Performing Organization Address [facility] Co de Phone Number [facility] [place] [address] documented in this encounter Visit Diagnoses Diagnosis Left sided colitis, unspecified complication Chronic ulcerative enterocolitis, unspecified complication Acute amebic dysentery Acute amebic dysentery without mention of abscess documented in this encounter Care Teams Medical Referral Coordinator Relationship Specialty Start Date End Date Maximilian Fall MD [address] [place] [address] PCP - General 10/01/11 02/13/21 documented as of this encounter
--- OUTSIDE RECORDS SUMMARY | 2024-07-27 21:09 | XMS_ITS | Encounter Summary ---
Author Organization [facility] Address [facility] [place] [address] Care Team Providers Care Kettle Cleaner Name Role Phone Maximilian Fall MD Primary Care Provider [phone] Encounter Details Date Type Department Care Team (Late st Contact Info) Description 09/11/2014 Orders Only [place] [address] Bethany Trivedi RN Other ulcerative [...] Vascular Unit Level 4 [place] [address] Faheem Joy MD [facility] [place] [address] 08/15/2024 9:00 AM EDT Office Visit [place] [address] Dion Barlow MD [facility] [place] [address] 09/01/2024 9:40 AM EDT Office Visit Cardiology at [address] [place] [phone] Franky Shaver MD [facility] [place] [address] 09/01/2024 11:20 AM EDT Office Visit Dermatology at [facility] [address] [place] [address] Gómez Mercer MD [facility] [place] [address] 09/21/2024 2:45 PM EDT Office Visit Pain and Spine Center at [facility] [place] [address] Trung Hoyos MD [facility] [place] [address] documented as of this encounter Visit Diagnoses Diagnosis Other ulcerative colitis- Primary documented in this encounter Care Teams Kettle Cleaner Relationship Specialty Start Date End Date Maximilian Fall MD [address] [facility] 1 [place] [address] PCP - General 10/01/11 02/13/21 documented as of this encounter
--- OUTSIDE RECORDS SUMMARY | 2024-07-27 21:09 | XMS_ITS | Encounter Summary ---
Author Organization [facility]1983 Address [facility] [place] [address] Care Team Providers Care Equipment Coordinator Name Role Phone Maximilian Fall MD Primary Care Provider [phone] Encounter Details Date Type Department Care Team (Late st Contact Info) Description 11/05/2015 Telephone [place] [phone] Bethany Trivedi, RN Social History Tobacco Use [...] Vascular Unit Level 4 [place] [address] Faheem Joy MD [facility] [place] [address] 08/15/2024 9:00 AM EDT Office [place] [address] Dion Barlow MD [facility] [place] [address] 09/01/2024 9:40 AM EDT Office Visit Cardiology at [address] [address] Franky Shaver MD [facility] [place] [address] 09/01/2024 11:20 AM EDT Office Visit Dermatology at [address] [address] Gómez Mercer MD [facility] DR ED[place] [address] 09/21/2024 2:45 PM EDT Office Visit [place] [address] Trung Hoyos MD [facility] [place] [address] documented as of this encounter Results * (ABNORMAL) Sedimentation rate (11/06/2015 10:24 AM EST) [facility] Signature Sedimentation Rate Automated 22(H) 0 - 15 mm/hr CERNER MILLENNIUM Blood specimen (specimen) 11/06/2015 10:24 AM EST 11/06/2015 10:28 AM EST Narrative Resulting Agency Comment Spec In Lab L Karthik Barlow MD HEMATOLOGY ORDERABLE S CERNER MILLENNIUM * (ABNORMAL) Comprehensive metabolic panel (non-fasting) (11/06/2015 10:24 AM EST) [facility] Signature Glucose 81 65 - 199 mg/dL CERNER [...] the following links into your internet browser. [email or web address] Blood specimen (specimen) 11/06/2015 10:24 AM EST 11/06/2015 10:28 AM EST Narrative Resulting Agency Comment Spec In Lab L Karthik Barlow MD CHEMISTRY ORDERABLES [facility] * High Sensitivity CRP (11/06/2015 10:24 AM EST) C-Reactive Protein High Sensitivity 7.9 mg/L [facility] Comment: Interpretations: 1) For [...] Barlow MD CHEMISTRY ORDERABLES Performing Organization Address City/State/[facility] Co in Phone Number [facility] documented in this encounter Visit Diagnoses Diagnosis Ulcerative colitis, without complications Diarrhea documented in this encounter Care Teams Equipment Coordinator Relationship Specialty Start Date End Date Maximilian Fall MD [address] [place] [address] PCP - General 10/01/11 02/13/21 documented as of this encounter
--- OUTSIDE RECORDS SUMMARY | 2024-07-27 21:09 | XMS_ITS | Encounter Summary ---
Author Organization [facility] [place] [address] Care Team Providers Care Voice Systems Engineer Name Role Phone Maximilian Fall MD Primary Care Provider Encounter Details Date Type Department Care Team (Latest Contact Info) Description 07/14/2016 11:55 AM EDT Laboratory Appointment Lab 3L [place] [address] Chronic ulcerative enterocolitis, unspecified complication; [...] Vascular Unit Level 4 [place] [address] Faheem Joy MD [facility] [place] [address] 08/15/2024 9:00 AM EDT Office [place] [address] Dion Barlow MD [facility] [place] [address] 09/01/2024 9:40 AM EDT Office Visit Cardiology at [address] [place] [phone] Franky Shaver MD [facility] [place] [address] 09/01/2024 11:20 AM EDT Office Visit Dermatology at [facility] [address] [place] [phone] Gómez Mercer MD [facility] DR [place] [address] 09/21/2024 2:45 PM EDT Office Visit [place] [address] Trung Hoyos MD [facility] [place] [address] documented as of this encounter Procedures Procedure [...] 12:21 PM EDT) Neutrophil % 60.2 % [facility] Neutrophil Absolute 3.77 1.50 - 6.30 x10(3)/[facility] Lymph % 27.2 % [facility] Lymphocytes Abs 1.7 1.0 - 3.6 x10(3)/[facility] Monocyte % 9.0 % [facility] Monocyte Abs 0.6 0.2 - 1.0 x10(3)/[facility] Eos % 2.6 % [facility] Eosinophils Abs 0.2 0.0 - 0.5 x10(3)/[facility] Basophil % 0.5 % [facility] Baso Absolute 0.0 0.0 - 0.2 x10(3)/[facility] Immature Gran % 0.50 % [facility] Comment: Immature granulocytes(IG's)percentage and absolute count will include metamyelocytes, myelocytes, and promyelocytes. Blood smears from CBCs yielding IG's will be scanned manually for concordance. If this scan disagrees with the automated IG or if promyelocytes are noted, a manual differential will be performed. Immature Gran Absolute 0.03 0.00 - 0.05 x10(3)/[facility] Blood specimen (specimen) 07/14/2016 12:21 PM EDT 07/14/2016 12:29 PM EDT Narrative Resulting Agency Comment Spec In Lab L Karthik Barlow MD HEMATOLOGY ORDERABLE S [facility] [place] [address] * (ABNORMAL) Hemogram (07/14/2016 12:21 PM EDT) [facility] White Blood Cell 6.2 4.0 - 10.0 x10(3)/[facility] Red Blood Cell 4.11(L) 4.63 - 6.08 x10(6)/[facility]ORY Hemoglobin 13.4(L) 13.7 - 17.5 gm/dL [facility] Hematocrit 40.5 40.0 - 51.0 % [facility] Mean Cell Volume 98.5(H) 79.0 - 92.0 fL [facility] Mean Cell Hemoglobin 32.6(H) 25.6 - 32.2 pg [facility] Mean Cell Hemoglobin Concentration 33.1 32.0 - 36.5 gm/dL [facility] Platelet 214 145 - 370 x10(3)/[facility] LABORATORY RDW Standard Deviation 47.4(H) 35.0 - 46.0 [facility] RDW coefficient of variation 13.2 10.9 - 14.4 % [facility] Mean Platelet Volume 11.1 9.0 - 12.0 fL [facility] NRBC% auto 0.0 % [facility] NRBC Absolute 0.000 0.000 - 0.012 x10(3)/[facility] Blood specimen (specimen) 07/14/2016 12:21 PM EDT 07/14/2016 12:29 PM EDT Narrative Resulting Agency Comment Spec In Lab L Karthik Barlow MD HEMATOLOGY ORDERABLE S [facility] [place] [address] * (ABNORMAL) Sedimentation rate (07/14/2016 12:21 PM EDT) [facility] Sedimentation Rate Automated 17(H) 0 - 15 mm/hr [facility] Blood specimen (specimen) 07/14/2016 12:21 PM EDT 07/14/2016 12:29 PM EDT Narrative Resulting Agency Comment Spec In Lab L Karthik Barlow MD HEMATOLOGY ORDERABLE S [facility] [place] [address] * Comprehensive metabolic panel (non-fasting) (07/14/2016 12:21 PM EDT) Glucose 147 65 - 199 mg/dL [facility] Comment:Diabetes: >=200 mg/d L plus symptoms Blood Urea Nitrogen 17 10 - 20 mg/dL [facility] Creatinine 1.04 0.80 - 1.50 mg/dL [facility] Comment: Please note that the pediatric reference intervals supplied above were not validated at [facility]. Results from pediatric patients should be interpreted in conjunction to the patient's age, height and muscle mass. Sodium 140 135 - 145 mmol/L [facility] [...] questions. Chloride 102 98 - 107 mmol/L [facility] Carbon Dioxide 25 22 - 31 mmol/L [facility] Anion Gap 13 5 - 15 mmol/L [facility] Calcium 9.7 8.5 - 10.5 mg/dL [facility] Protein, Total 7.9 6.1 - 8.0 gm/dL [facility] Albumin 4.4 3.2 - 5.2 gm/dL [facility] Aspartate Aminotransferase 15 0 - 39 unit/L [facility] Alanine Aminotransferase 20 0 - 55 unit/L [facility] Alkaline Phosphatase 65 40 - 120 unit/L [facility] Bilirubin, Total 0.4 0.2 - 1.3 mg/dL [facility] Bilirubin, Direct 0.1 0.0 - 0.3 mg/dL [facility] Est Glomerular Filtration Rate >60 >=60 [facility] Comment: This estimated GFR [...] the following links into your internet browser. [email or web address] Blood specimen (specimen) 07/14/2016 12:21 PM EDT 07/14/2016 12:29 PM EDT Narrative Resulting Agency Comment Spec In Lab L Karthik Barlow MD CHEMISTRY ORDERABLES [facility] [place] [address] * High Sensitivity CRP (07/14/2016 12:21 PM EDT) C-Reactive Protein High Sensitivity 4.8 mg/L [facility] Comment: Interpretations: 1) For accurate [...] Barlow MD CHEMISTRY ORDERABLES Performing Organization Address City/State/[facility] [place] [address] documented in this encounter Visit Diagnoses Diagnosis Chronic ulcerative enterocolitis, unspecified complication Acute amebic dysentery Acute amebic dysentery without mention of abscess documented in this encounter Care Teams Voice Systems Engineer Relationship Specialty Start Date End Date Maximilian Fall MD [address] [place] [address] PCP - General 10/01/11 02/13/21 documented as of this encounter
--- OUTSIDE RECORDS SUMMARY | 2024-07-27 21:09 | XMS_ITS | Encounter Summary ---
Author Organization [facility] Address [facility] [place] [address] Care Team Providers Care Legal Document Assistant Name Role Phone Maximilian Fall MD Primary Care Provider [phone] Reason for Visit * Reason Comments Follow-up Encounter Details Date Type Department Care Team (Late st Contact Info) Description 03/13/2015 1:00 PM EDT Follow-[place] [address] Dion Barlow MD [facility] [place] [address] Ulcerative colitis, other complication; Lethargy; Other ulcerative [...] Overview Note: ?? Colonoscopy 04/08/10 (Dr. Gomes [facility]) - inflammation only within the rectum and sigmoid; extent of the exam was to the hepatic flexure; biopsies proximal to the sigmoid nl ?? Repeat exam 11/27/11 ([facility] [...] 6 months or sooner. Davina Barlow MD Paper Cleanerpocket and pulley machine operator Section of Gastroenter[place] [address] documented in this encounter Plan of Treatment Upcoming Encounters Date Type Department Care Team (Late st Contact Info) Description 07/29/2024 Hospital Encounter Heart and Vascular Unit Level 4 Wing A at [place] [phone] Faheem Joy MD [facility] [place] [address] 08/15/2024 9:00 AM EDT Office Visit Gastroenterology at [place] [phone] Dion Barlow MD [facility] [place] [address] 09/01/2024 9:40 AM EDT Office Visit Cardiology at [address] [address] Franky Shaver MD [facility] [place] [address] 09/01/2024 11:20 AM EDT Office Visit Dermatology at [address] [place] [address] Gómez Mercer MD [facility] [place] [address] 09/21/2024 2:45 PM EDT Office Visit Pain and Spine Center at [place] [phone] Trung Hoyos MD [facility] [place] [address] Scheduled Orders Name Type Priority Associated Diagnoses [...] HEMATOLOGY ORDERABLE S Performing Organization Address [facility] Co de Phone Number DURGA FREDERICK * High Sensitivity CRP (03/13/2015 2:00 PM EDT) Pathologist [facility] C-Reactive Protein High Sensitivity 2.1 mg/L [facility] Comment: Interpretations: 1) For accurate [...] MD CHEMISTRY ORDERABLES Performing Organization Address [facility] de Phone Number DURGA FREDERICK * Hepatic Function Panel (03/13/2015 2:00 PM EDT) Pathologist [facility] Protein, Total 8.0 6.1 - 8.0 gm/dL [facility] MILLENNIUM Albumin 4.6 3.2 - 5.2 gm/dL [facility] MILLENNIUM Aspartate Aminotransferase 19 0 - 39 unit/L [facility] MILLENNIUM Alanine Aminotransferase 27 0 - 55 unit/L CERNER MILLENNIUM Alkaline Phosphatase 58 40 - 120 unit/L [facility] MILLENNIUM Bilirubin, Total 0.4 0.2 - 1.3 mg/dL [facility] MILLBANNERIUM Bilirubin, Direct 0.1 0.0 - 0.3 mg/dL CERNER MILLENNIUM Blood specimen (specimen) 03/13/2015 2:00 PM EDT 03/13/2015 2:14 PM EDT Narrative Resulting Agency Comment Spec In Lab L Karthik Barlow MD CHEMISTRY ORDERABLES Performing Organization Address [facility] Co de Phone Number CERNER MILLENNIUM * (ABNORMAL) TSH (03/13/2015 2:00 PM EDT) Thyroid Stimulating Hormone 5.66(H) 0.27 - 4.20 mcIU/mL CERNER MILLENNIUM Blood specimen (specimen) 03/13/2015 2:00 PM EDT 03/13/2015 2:14 PM EDT Narrative Resulting Agency Comment Spec In Lab L Karthik Barlow MD CHEMISTRY ORDERABLES Performing Organization Address [facility] Phone Number CERNER MILLENNIUM * (ABNORMAL) Comprehensive metabolic panel [...] the following links into your internet browser. [email or web address] Blood specimen (specimen) 03/13/2015 2:00 PM EDT 03/13/2015 2:14 PM EDT Narrative Resulting Agency Comment Spec In Lab L Karthik Barlow MD CHEMISTRY ORDERABLES DURGA FREDERICK documented in this encounter Visit Diagnoses Diagnosis Ulcerative colitis, other complication Lethargy Other malaise and fatigue Other ulcerative colitis documented in this encounter Care Teams Legal Document Assistant Relationship Specialty Start Date End Date Maximilian Fall MD [address] [place] [address] PCP - General 10/01/11 02/13/21 documented as of this encounter
--- OUTSIDE RECORDS SUMMARY | 2024-07-27 21:10 | XMS_ITS | Encounter Summary ---
[place] [address] Care Team Providers Care Aquatic Facility Manager Name Role Phone Maximilian Fall MD Primary Care Provider [phone] Encounter Details Date Type Department Care Team (Late st Contact Info) Description 09/30/2012 Telephone [place] [phone] Lilliana Reece RN Social History Tobacco Use [...] louis ----- Message ----- From: Lab In [facility] Chong Sent: 09/20/2012 11:34 AM To: [...] Vascular Unit Level 4 [place] [address] Faheem Joy MD [facility] [place] [address] 08/15/2024 9:00 AM EDT Office Visit Gastroenterology at [address] Dion Barlow MD [facility] [place] [address] 09/01/2024 9:40 AM EDT Office Visit Cardiology at [address] [address] Franky Shaver MD [facility] [place] [address] 09/01/2024 11:20 AM EDT Office Visit Dermatology at [address] [address] Gómez Mercer MD [facility] [place] [address] 09/21/2024 2:45 PM EDT Office Visit [facility] [place] [address] Trung Hoyos MD [facility] [place] [address] documented as of this encounter Visit Diagnoses Not on filedocumented in this encounter Care Teams Aquatic Facility Manager Relationship Specialty Start Date End Date Maximilian Fall MD [address] [place] [address] [address] [facility] 1 [place] [address] PCP - General 10/01/11 02/13/21 documented as of this encounter
--- OUTSIDE RECORDS SUMMARY | 2024-07-27 21:10 | XMS_ITS | Encounter Summary ---
Author Organization [facility] Address [facility] [place] [address] Care Team Providers Care Dye Automation Operator Name Role Phone Maximilian Fall MD Primary Care Provider [phone] Encounter Details Date Type Department Care Team (Late st Contact Info) Description 10/01/2012 4:15 PM EST - 10/01/2012 4:45 PM EST [place] [address] Dion Osullivan MD [facility] [place] [address] UPPER GI ENDOSCOPY Social History Tobacco Use [...] Osullivan MD - 10/01/2012 5:07 PM EST [facility] Operative Note Patient Name: Naya Rodriguez : [id number] MR#: [id number] Case Date: 10/01/2012 Surgeon: Surgeon(s) and Role: [...] Vascular Unit Level [place] [address] Faheem Joy MD [facility] [place] [address] 08/15/2024 9:00 AM EDT Office Visit Gastroenterology at [place] [phone] Dion Osullivan MD [facility] [place] [address] 09/01/2024 9:40 AM EDT Office Visit Cardiology at [address] [address] Franky Shaver MD [facility] [place] [address] 09/01/2024 11:20 AM EDT Office Visit Dermatology at [facility] [address] [place] [address] Gómez Mercer MD [facility] DR EDD[place] [address] 09/21/2024 2:45 PM EDT Office Visit [place] [address] Trung Hoyos MD [facility] [place] [address] documented as of this encounter Procedures Procedure [...] 5:54 PM EST) Surgical Pathology Report ? [facility] ? Provider: ?? Dion OSULLIVAN ?Pt. Name: ?? NAYA RODRIGUEZ ? Acc #: ?[id number] ?Pt. ? Col Date: ?? 10/01/2012 ? [...] History/Diagnos is: ? 62 yo with dyspepsia CERNER MILLENNIUM 10/01/2012 5:54 PM EST L Karthik Osullivan MD PATHOLOGY/CYTOLOGY O CEE Performing Organization Address [facility] Co de Phone Number DURGA FREDERICK * Specimen to Pathology (surgical or derm) (10/01/2012 5:09 PM EST) AP Specimen 10/01/2012 5:09 PM EST 10/01/2012 5:09 PM EST Narrative CERNER MILLENNIUM - 10/01/2012 5:09 PM EST Specimen requisition ordered. ??Separate Pathology report to follow L Karthik Osullivan MD PATHOLOGY/CYTOLOGY O CEE Performing Organization Address [facility]/ZIP Co de Phone Number [facility] * UPPER GI ENDOSCOPY (10/01/2012 4:41 PM EST) UPPER GI ENDOSCOPY [facility] Endoscopy Patient Name: Naya Rodriguez ? Procedure Date: 10/01/2012 4:41 PM ? Date of : 1950 ? Age: 62 ? Order #: [id number] ? Procedure: ? Upper GI endoscopy Indications: ? Epigastric abdominal pain Providers: ? L Karthik Osullivan MD, Alannah Singletary, ? RN, Mona Osborne, Financial Market Dealer Referring : ?Maximilian aFll MD Medicines: ? Midazolam 3 mg IV, [...] EST Maximilian Fall MD [facility] * POCT GLUCOSE (10/01/2012 4:27 PM EST) Glucose, POC 84 60 - 199 mg/dL CERNER MILLENNIUM Comment: Supplemental ranges: <110 mg/dL before meals <200 mg/dL all other times of the day Blood specimen (specimen) 10/01/2012 4:27 PM EST 10/01/2012 4:27 PM EST L Karthik Osullivan MD POINT OF CARE TEST O RDERABLES Performing Organization Address City/State/[facility] Co tn Phone Number [facility] documented in this encounter Visit Diagnoses [...] 1653 (Given - Provid er: Alannah Singletary RN)4549 (Given - Provider: Alannah Singletary RN) documented in this encounter Care Teams Dye Automation Operator Relationship Specialty Start Date End Date Maximilian Fall MD [address] [place] [address] PCP - General 10/01/11 02/13/21 documented as of this encounter
--- OUTSIDE RECORDS SUMMARY | 2024-07-27 21:10 | XMS_ITS | Encounter Summary ---
Author Organization [facility] [place] [address] Care Team Providers Care Return Clerk Name Role Phone Maximilian Fall MD Primary Care Provider [phone] Reason for Visit * Reason Onset Date Comments Medication Refill 11/22/2012 Encounter Details Date Type Department Care Team (Late st Contact Info) Description 11/22/2012 Refill [place] [address] Dion Barlow MD [facility] [place] [address] Ulcerative colitis (Primary Dx) Social History Tobacco [...] Vascular Unit Level [place] [address] Faheem Joy MD [facility] CARDIOLOGY [place], [place] [address] 08/15/2024 9:00 AM EDT Office Visit [place] [address] Dion Barlow MD [facility] [place] [address] 09/01/2024 9:40 AM EDT Office Visit Cardiology at [address] [place] [address] Franky Shaver MD [facility] [place] [address] 09/01/2024 11:20 AM EDT Office Visit Dermatology at [place] [address] [place] [address] Gómez Mercer MD [facility] [address] 09/21/2024 2:45 PM EDT Office Visit Pain [place] [address] Trung Hoyos MD [facility] [place] [address] documented as of this encounter Visit Diagnoses Diagnosis Ulcerative colitis- Primary Ulcerative colitis, unspecified documented in this encounter Care Teams Return Clerk Relationship Specialty Start Date End Date Maximilian Fall MD [address] [facility] [place] [address] PCP - General 10/01/11 02/13/21 documented as of this encounter
--- OUTSIDE RECORDS SUMMARY | 2024-07-27 21:10 | XMS_ITS | Encounter Summary ---
Author Organization [facility] Address [facility] [place] [address] Care Team Providers Care Electrical Engineering Technologist Name Role Phone Maximilian Fall MD Primary Care Provider [phone] Reason for Visit * Reason Comments Research Merit UC screening v isit Encounter Details Date Type Department Care Team (Late st Contact Info) Description 03/02/2012 7:30 AM EDT Office [place] [address] Mica Gore, [facility] [place] [address] Ulcerative colitis (Primary Dx) Social History Tobacco [...] Vascular Unit Level [place] [address] Faheem Joy MD [facility] [place] [address] 08/15/2024 9:00 AM EDT Office [place] [address] Dion Barlow MD [facility] [place] [address] 09/01/2024 9:40 AM EDT Office Visit Cardiology at [address] [place] [address] Franky Shaver MD [facility] [place] [address] 09/01/2024 11:20 AM EDT Office Visit Dermatology at [facility] [address] [place] [address] Gómez Mercer MD [facility] [place] [address] 09/21/2024 2:45 PM EDT Office Visit [place] [address] Trung Hoyos MD [facility] [place] [address] documented as of this encounter Visit Diagnoses Diagnosis Ulcerative colitis- Primary Ulcerative colitis, unspecified documented in this encounter Care Teams Electrical Engineering Technologist Relationship Specialty Start Date End Date Maximilian Fall MD [address] [facility] 1 [place] [address] PCP - General 10/01/11 02/13/21 documented as of this encounter
--- OUTSIDE RECORDS SUMMARY | 2024-07-27 21:10 | XMS_ITS | Encounter Summary ---
Author Organization [facility] [place] [address] Care Team Providers Care Ground Wirer Name Role Phone Maximilian Fall MD Primary Care Provider [phone] Encounter Details Date Type Department Care Team (Late st Contact Info) Description 03/02/2012 External Results [place] [address] Dion Barlow MD [facility] [place] [address] Social History Tobacco Use Types Packs/Day Years [...] Vascular Unit Level 4 [place] [address] Faheem Joy MD [facility] [place] [address] 08/15/2024 9:00 AM EDT Office Visit [place] [address] Dion Barlow MD [facility] [place] [address] 09/01/2024 9:40 AM EDT Office Visit Cardiology at [address] [place] [address] Franky Shaver MD [facility] [place] [address] 09/01/2024 11:20 AM EDT Office Visit Dermatology at [facility] [address] [place] [address] Gómez Mercer MD [facility] [place] [address] 09/21/2024 2:45 PM EDT Office Visit [facility] [place] [address] Trung Hoyos MD [facility] [place] [address] documented as of this encounter Procedures Procedure Name Priority Date/Time Associated Diagnosis Comments EXTERNAL LAB RESULTS Routine 03/02/2012 documented in this encounter Results * External Lab Results (03/02/2012) Blood specimen (specimen) 03/02/2012 L Karthik Barlow MD CHEMISTRY ORDERABLES documented in this encounter Visit Diagnoses Not on filedocumented in this encounter Care Teams Ground Wirer Relationship Specialty Start Date End Date Maximilian Fall MD [address] [place] [address] PCP - General 10/01/11 02/13/21 documented as of this encounter
--- OUTSIDE RECORDS SUMMARY | 2024-07-27 21:10 | XMS_ITS | Encounter Summary ---
Author Organization [facility] Address [facility] [place] [address] Care Team Providers Care Automobile Tire Builder Name Role Phone Maximilian Fall MD Primary Care Provider [phone] Encounter Details Date Type Department Care Team (Latest Contact Info) Description 11/27/2011 11:49 AM EST - 11/27/2011 2:45 PM EST Hospital En[place] [address] Dion Osullivan MD [facility] [place] [address] Discharge Disposition: Home Social History Tobacco Use [...] - 11/27/2011 2:37 PM EST Please call [phone], before 5pm with problems, questions or concerns, after 5pm call the Hospital at [phone] and ask to speak to the Hand Suture Winder executive relations specialist and the sorting machine operator will contactthat person for you. Discharge instructions reviewed with patient who expresses understanding. * Patient Instructions* Dion Osullivan MD - 11/27/2011 1:07 PM EST Please see Recommendations in the Provation procedure report which is documented in the procedural note in E-DH. * Attachments The following attachments cannot be sent through Care Everywhere. * COLONOSCOPY: WHAT TO EXPECT AT HOME (SWEDISH) documented in this encounter Medications at Time [...] Osullivan MD - 11/27/2011 1:06 PM EST [facility] Operative Note Patient Name: Naya Rodriguez : [id number] MR#: [id number] Case Date: 11/27/2011 Surgeon: Surgeon(s) and Role: * Dion OSULLIVAN MD - Primary Please see the Provation procedure report in the Procedures tab in eDH. documented in this encounter Plan of Treatment Upcoming Encounters Date Type Department Care Team (Late st Contact Info) Description 07/29/2024 Hospital Encounter Heart and Vascular Unit Level [place] [address] Faheem Joy MD [facility] [place] [address] 08/15/2024 9:00 AM EDT Office Visit Gastroenterology at [address]1000 Dion Osullivan MD [facility] [place] [address] 09/01/2024 9:40 AM EDT Office Visit Cardiology at [address] [address] Franky Shaver MD [facility] [place] [address] 09/01/2024 11:20 AM EDT Office Visit Dermatology at [facility] [address] [place] [address] Gómez Mercer MD [facility] DR EDDIE [place] [address] 09/21/2024 2:45 PM EDT Office Visit [place] [address] Trung Hoyos MD [facility] [place] [address] documented as of this encounter Procedures Procedure [...] 4:38 PM EST) Surgical Pathology Report ? [facility] ? Provider: ?? Dion OSULLIVAN ?Pt. Name: ?? NAYA RODRIGUEZ ? Acc #: ?[id number] ?Pt. ? Col Date: ?? 11/27/2011 ?/Sex: [...] Stephen, rubbery mucosal polyp, the larger ? [facility] ? Provider: ?? Dion OSULLIVAN ?Pt. Name: ?? NAYA RODRIGUEZ ? Acc #: ?[id number] ?Pt. ? Col Date: ?? 11/27/2011 ?/Sex: [...] 61 YO with recent diagnosis of [facility] 11/27/2011 4:38 PM EST L Karthik Osullivan MD PATHOLOGY/CYTOLOGY O CEE Performing Organization Address City/[facility] de Phone Number [facility] * Specimen to Pathology (surgical or derm) (11/27/2011 1:53 PM EST) AP Specimen 11/27/2011 1:53 PM EST 11/27/2011 1:53 PM EST Narrative DURGA COLBERTIUM - 11/27/2011 1:53 PM EST Specimen requisition ordered. ??Separate Pathology report to follow L Karthik Osullivan MD PATHOLOGY/CYTOLOGY O CEE Performing Organization Address [facility] Co de Phone Number [facility] * Specimen to Pathology (surgical or derm) (11/27/2011 1:53 PM EST) AP Specimen 11/27/2011 1:53 PM EST 11/27/2011 1:53 PM EST Narrative DURGA COLBERTIUM - 11/27/2011 1:53 PM EST Specimen requisition ordered. ??Separate Pathology report to follow L Karthik Osullivan MD PATHOLOGY/CYTOLOGY [place]zz[place] MIKE Performing Organization Address [facility] Co de Phone Number [facility] * Specimen to Pathology (surgical or derm) (11/27/2011 1:53 PM EST) AP Specimen 11/27/2011 1:53 PM EST 11/27/2011 1:53 PM EST Narrative DURGA COLBERTIUM - 11/27/2011 1:53 PM EST Specimen requisition ordered. ??Separate Pathology report to follow L Karthik Osullivan MD PATHOLOGY/CYTOLOGY O CEE Performing Organization Address [facility] Co de Phone Number [facility] * COLONOSCOPY (11/27/2011 1:01 PM EST) COLONOSCOPY [facility] Endoscopy Patient Name: Naya Rodriguez ? Procedure Date: 11/27/2011 01:01:31 PM ? Date of : 1950 ? Age: 61 ? Procedure: ? Colonoscopy Indications: ? Follow-up of left-sided chronic ? ulcerative colitis Providers: ? L Karthik Osullivan MD, Tyron Cee, ? RN, Qing López, Shop Tailor Apprentice Referring : ?Maximilian Fall MD Medicines: ? [...] 50 mL/hr, Intravenous, CONTINUOUS, Starting on Tresa 1/5/12 at 1230, Until Tresa 12 at 1701, Endoscopy (Day of Procedure) New Bag 11/27/2011 12:30 PM EST 50 mL/hr 50 mL/hr documented in this encounter Active and Recently Administered Medications Times are shown in EST. Continuous Medication Order 11/25/2011 11/26/2011 11/27/2011 sodium chloride 0.9% infusion (CANCELED) 50 mL/hr, Intravenous, CONTINUOUS, Starting on Tresa 112 at 1230, Until Tresa 11/27/11 at 1701, Endoscopy (Day of Procedure) 1230 (New Bag - Prov ider: Madalyn Harley RN) PRN Medication Order 11/25/2011 11/26/2011 11/27/2011 fentaNYL 50mcg/mL injection (CANCELED) ONCE PRN, Starting on Tresa 1 at 1308, Until Tresa 11/27/11 at 1701, [...] time) documented in this encounter Care Teams Automobile Tire Builder Relationship Specialty Start Date End Date Maximilian Fall MD [address] [address] PCP - General 11/9/11 3/24/21 documented as of this encounter
--- OUTSIDE RECORDS SUMMARY | 2024-07-27 21:10 | XMS_ITS | Encounter Summary ---
Author Organization [facility] Address [facility] [place] [address] Care Team Providers Care Electronic Engineering Draftsperson Name Role Phone Maximilian aFll MD Primary Care Provider [phone] Encounter Details Date Type Department Care Team (Late st Contact Info) Description 03/02/2012 Orders Only [place] [phone] Dion Barlow MD [facility] [place] [address] Exam for clinical research (Primary Dx) Social [...] Vascular Unit Level 4 [place] [address] Faheem Joy MD [facility] [place] [address] 08/15/2024 9:00 AM EDT Office Visit [place] [address] Dion Barlow MD [facility] [place] [address] 09/01/2024 9:40 AM EDT Office Visit Cardiology at [address] [place] [address] Franky Shaver MD [facility] [place] [address] 09/01/2024 11:20 AM EDT Office Visit Dermatology at [facility] [address] [place] [address] Gómez Mercer MD [facility] [place] [address] 09/21/2024 2:45 PM EDT Office Visit [facility] [place] [address] Trung Hoyos MD [facility] [place] [address] documented as of this encounter Results * [...] trial documented in this encounter Care Teams Electronic Engineering Draftsperson Relationship Specialty Start Date End Date Maximilian Fall MD [address] [place] [address] PCP - General 10/01/11 02/13/21 documented as of this encounter
--- OUTSIDE RECORDS SUMMARY | 2024-07-27 21:10 | XMS_ITS | Encounter Summary ---
Author Organization [facility] Address [facility] [place] [address] Care Team Providers Care Register Of Deeds Name Role Phone Maximilian Fall MD Primary Care Provider [phone] Encounter Details Date Type Department Care Team (Late st Contact Info) Description 09/30/2012 Telephone [place] [phone] Lilliana Reece RN Social History Tobacco Use [...] Vascular Unit Level 4 [place] [address] Faheem Joy MD [facility] [place] [address] 08/15/2024 9:00 AM EDT Office Visit Gastroenterology at [place] [phone] Dion Barlow MD [facility] [place] [address] 09/01/2024 9:40 AM EDT Office Visit Cardiology at [address] [address] Franky Shaver MD [facility] [place] [address] 09/01/2024 11:20 AM EDT Office Visit Dermatology at [address] [address] Gómez Mercer MD [facility] [address] ED[facility] [address] 09/21/2024 2:45 PM EDT Office Visit [facility] [place] [address] Trung Hoyos MD [facility] [address] documented as of this encounter Visit Diagnoses Not on filedocumented in this encounter Care Teams Register Of Deeds Relationship Specialty Start Date End Date Maximilian Fall MD [address] [facility] 1 [place] [address] PCP - General 10/01/11 02/13/21 documented as of this encounter
--- OUTSIDE RECORDS SUMMARY | 2024-07-27 21:10 | XMS_ITS | Encounter Summary ---
Author Organization [facility] Address [facility] [place] [address] Care Team Providers Care Leather Sorter Name Role Phone Maximilian Fall MD Primary Care Provider [phone] Encounter Details Date Type Department Care Team (Late st Contact Info) Description 03/16/2012 Orders [place] [phone] Dion Barlow MD [facility] [place] [address] Ulcerative colitis (Primary Dx) Social History Tobacco [...] Vascular Unit Level 4 [place] [address] Faheem Joy MD [facility] [place] [address] 08/15/2024 9:00 AM EDT Office [place] [address] Dion Barlow MD [facility] [place] [address] 09/01/2024 9:40 AM EDT Office Visit Cardiology at [address] [place] [address] Franky Shaver MD [facility] [place] [address] 09/01/2024 11:20 AM EDT Office Visit Dermatology at [facility] [address] [place] [address] Gómez Mercer MD [facility] [place] [address] 09/21/2024 2:45 PM EDT Office Visit [facility] [place] [address] Trung Hoyos MD [facility] [place] [address] documented as of this encounter Visit Diagnoses Diagnosis Ulcerative colitis- Primary Ulcerative colitis, unspecified documented in this encounter Care Teams Leather Sorter Relationship Specialty Start Date End Date Maximilian Fall MD [address] [facility] 1 [place] [address] PCP - General 10/01/11 02/13/21 documented as of this encounter
--- OUTSIDE RECORDS SUMMARY | 2024-07-27 21:10 | XMS_ITS | Encounter Summary ---
Author Organization [facility] Address [facility] [place] [address] Care Team Providers Care Double Needle Operator Lockstitch Name Role Phone Maximilian Fall MD Primary Care Provider [phone] Encounter Details Date Type Department Care Team (Latest Contact Info) Description 03/02/2012 9:31 AM EDT - 03/02/2012 11:59 PM EDT Hospital Encounter XRay at [address] [place] [address] CLINIC, Dion Edmonds MD [facility] [place] [address] Exam for clinical research Discharge Disposition: Home [...] Vascular Unit Level 4 [place] [address] Faheem Joy MD [facility] [place] [address] 08/15/2024 9:00 AM EDT Office [place] [address] Dion Barlow MD [facility] [place] [address] 09/01/2024 9:40 AM EDT Office Visit Cardiology at [address] [address] Franky Shaver MD [facility] [place] [address] 09/01/2024 11:20 AM EDT Office Visit Dermatology at [facility] [address] [place] [address] Gómez Mercer MD [facility] DR [place] [address] 09/21/2024 2:45 PM EDT Office Visit Pain and Spine Center at [facility] [place] [address] Trung Hoyos MD [facility] [place] [address] documented as of this encounter Procedures Procedure [...] trial documented in this encounter Care Teams Double Needle Operator Lockstitch Relationship Specialty Start Date End Date Maximilian Fall MD [address] [place] [address] PCP - General 10/01/11 02/13/21 documented as of this encounter
--- OUTSIDE RECORDS SUMMARY | 2024-07-27 21:10 | XMS_ITS | Encounter Summary ---
Author Organization [facility] Address [facility] [place] [address] Care Team Providers Care Mold Cooler Name Role Phone Maximilian Fall MD Primary Care Provider [phone] Encounter Details Date Type Department Care Team (Latest Contact Info) Description 03/16/2012 12:32 PM EDT - 03/16/2012 3:00 PM EDT Hospital Encounter [place] [address] Enrico Malloy MD [facility] [place] [address] Discharge Disposition: Home Social History Tobacco Use [...] please contact your M. D. Please call [phone] BEFORE 5PM with any questions or concerns, AFTER 5PM call [phone] andask to speak to the Twx Operator conference services director. * Patient Instructions* Enrico Malloy MD - 03/16/2012 1:27 PM EDT Please see Recommendations in the Provation procedure report which is documented in the procedural note in E-DH. * Attachments The following attachments cannot be sent through Care Everywhere. * SIGMOIDOSCOPY: WHAT TO EXPECT AT HOME (CROATIAN) documented [...] Vascular Unit Level 4 [place] [address] Faheem Joy MD [facility] [place] [address] 08/15/2024 9:00 AM EDT Office [place] [address] Dion Barlow MD [facility] [place] [address] 09/01/2024 9:40 AM EDT Office Visit Cardiology at [address] [address] Franky Shaver MD [facility] [place] [address] 09/01/2024 11:20 AM EDT Office Visit Dermatology at [address] [address] Gómez Mrecer MD [facility] DR ED[place] [address] 09/21/2024 2:45 PM EDT Office Visit [place] [address] Trung Hoyos MD [facility] [place] [address] documented as of this encounter Procedures Procedure Name Priority Date/Time Associated Diagnosis Comments SURGICAL PATHOLOGY REPORT Routine 03/16/2012 4:52 PM EDT SPECIMEN TO PATHOLOGY Routine 03/16/2012 2:09 PM EDT FLEXIBLE SIGMOIDOSCOPY (WRVU 0.84) 03/16/2012 1:27 PM EDT study patient POCT GLUCOSE Routine 03/16/2012 1:16 PM EDT documented in this encounter Results * SURGICAL PATHOLOGY REPORT (03/16/2012 4:52 PM EDT) Surgical Pathology Report ? [facility] ? Provider: ?? ENRICO MALLOY ?Pt. Name: ?? SHANTNAYA ? Acc #: ?[id number] ?Pt. ? Col Date: ?? 03/16/2012 ? [...] History/Diagnosis: ? Patient with mild proctitis JO-ANNGIOVANNI ORDOÑEZAURORA 03/16/2012 4:52 PM EDT Enrico Malloy MD PATHOLOGY/CYTOLOGY Ozzie MIKE Performing Organization Address [facility] de Phone Number JO-ANNGIOVANNI FREDERICK * Specimen to Pathology (surgical or derm) (03/16/2012 2:09 PM EDT) AP Specimen 03/16/2012 2:09 PM EDT 03/16/2012 2:09 PM EDT Narrative DURGA TIAGOTADEOALBARO - 03/16/2012 2:09 PM EDT Specimen requisition ordered. ??Separate Pathology report to follow Enrico Malloy MD PATHOLOGY/CYTOLOGY O CEE Performing Organization Address [facility] Co de Phone Number JO-ANNGIOVANNI FREDERICK * POCT GLUCOSE LAB USE ONLY (03/16/2012 1:16 PM EDT) Glucose, POC 116 60 - 199 mg/dL DURGA FREDERICK Comment: Supplemental ranges: <110 mg/dL before meals <200 mg/dL all other times of the day Blood specimen (specimen) 03/16/2012 1:16 PM EDT 03/16/2012 1:16 PM EDT Enrico Malloy MD POINT OF CARE TEST O CEE DURGA FREDERICK documented in this encounter Visit [...] April Archibald RN)1348 (Given - Provider: April Archibald, RN) documented in this encounter Care Teams Mold Cooler Relationship Specialty Start Date End Date Maximilian Fall MD [address] [place] [address] PCP - General 10/01/11 02/13/21 documented as of this encounter
--- OUTSIDE RECORDS SUMMARY | 2024-07-27 21:10 | XMS_ITS | Encounter Summary ---
Author Organization [facility] Address [facility] [place] [address] Care Team Providers Care Restaurant Service Manager Name Role Phone Maximilian Fall MD Primary Care Provider [phone] Encounter Details Date Type Department Care Team (Late st Contact Info) Description 03/16/2012 2:30 PM EDT - 03/16/2012 3:30 PM EDT [place] [address] Enrico Malloy MD [facility] [place] [address] FLEXIBLE SIGMOIDOSCOPY (WRVU 0.84) Social History Tobacco [...] please contact your M. D. Please call [phone] BEFORE 5PM with any questions or concerns, AFTER 5PM call [phone] andask to speak to the Field Operations Supervisor cisco consultant. * Patient Instructions* Enrico Malloy MD - 03/16/2012 1:27 PM EDT Please see Recommendations in the Provation procedure report which is documented in the procedural note in E-DH. * Attachments The following attachments cannot be sent through Care Everywhere. * SIGMOIDOSCOPY: WHAT TO EXPECT AT HOME (TURKMEN) documented in this encounter Medications at Time [...] Vascular Unit Level [place] [address] Faheem Joy MD [facility] [place] [address] 08/15/2024 9:00 AM EDT Office [place] [address] Dion Barlow MD [facility] [place] [address] 09/01/2024 9:40 AM EDT Office Visit Cardiology at [address] [address] Franky Shaver MD [facility] [place] [address] 09/01/2024 11:20 AM EDT Office Visit Dermatology at [address] [address] Gómez Mercer MD [facility] [place] [address] 09/21/2024 2:45 PM EDT Office Visit [place] [address] Trung Hoyos MD [facility] [address] documented as of this encounter Procedures Procedure Name Priority Date/Time Associated Diagnosis Comments SURGICAL PATHOLOGY REPORT Routine 03/16/2012 4:52 PM EDT SPECIMEN TO PATHOLOGY Routine 03/16/2012 2:09 PM EDT FLEXIBLE SIGMOIDOSCOPY (WRVU 0.84) 03/16/2012 1:27 PM EDT study patient POCT GLUCOSE Routine 03/16/2012 1:16 PM EDT documented in this encounter Results * SURGICAL PATHOLOGY REPORT (03/16/2012 4:52 PM EDT) Surgical Pathology Report ? [facility] ? Provider: ?? ENRICO MALLOY ?Pt. Name: ?? SHANT NAYA Joya ? Acc #: ?[id number] ?Pt. ? Col Date: ?? 03/16/2012 ? [...] History/Diagnosis: ? Patient with mild proctitis DURGA FREDERICK 03/16/2012 4:52 PM EDT Enrico Malloy MD PATHOLOGY/CYTOLOGY O CEE [facility] * Specimen to Pathology (surgical or derm) (03/16/2012 2:09 PM EDT) AP Specimen 03/16/2012 2:09 PM EDT 03/16/2012 2:09 PM EDT Narrative [facility] - 03/16/2012 2:09 PM EDT Specimen requisition ordered. ??Separate Pathology report to follow Enrico Malloy MD PATHOLOGY/CYTOLOGY O CEE [facility] * POCT GLUCOSE LAB USE ONLY (03/16/2012 1:16 PM EDT) Glucose, POC 116 60 - 199 mg/dL DURGA FREDERICK Comment: Supplemental ranges: <110 mg/dL before meals <200 mg/dL all other times of the day Blood specimen (specimen) 03/16/2012 1:16 PM EDT 03/16/2012 1:16 PM EDT Enrico Malloy MD POINT OF CARE TEST O RDERABLES [facility] documented in this encounter Visit Diagnoses Not on filedocumented in this encounter Administered Medications Inactive Administered Medications - up to 3 most recent administrations Medication Order MAR Action Action Date Dose Rate Site fentaNYL 50mcg/mL injection ONCE PRN, Starting on 03/16/12 at 1334, Until 03/16/12 at 1854, Pain, Intra-Operative (Intra-Procedure), Routine Given 03/16/2012 1:37 PM EDT 50 mcg Right Arm Given 03/16/2012 1:34 PM EDT 50 mcg Ri ght Arm midazolam (VERSED) injection ONCE PRN, Starting on e 03/16/12 at 1334, Until Tu03/16/12 at 1854, Sleep, Intra-Operative (Intra-Procedure), Routine Given [...] documented in this encounter Care Teams Restaurant Service Manager Relationship Specialty Start Date End Date Maximilian Fall MD [address] [place] [address] PCP - General 10/01/11 02/13/21 documented as of this encounter
--- OUTSIDE RECORDS SUMMARY | 2024-07-27 21:10 | XMS_ITS | Encounter Summary ---
Author Organization [facility] Address [facility] [place] [address] Care Team Providers Care Revenue Collector Name Role Phone Maximilian Fall MD Primary Care Provider [phone] Reason for Visit * Reason Onset Date Comments Medication Refill 11/03/2013 Encounter Details Date Type Department Care Team (Late st Contact Info) Description 11/03/2013 Refill [place] [address] Dion Barlow MD [facility] [place] [address] Social History Tobacco Use Types Packs/Day Years [...] with Dr Barlow and it should be [id number] take 2 tabs twice a day or 2GM documented in this encounter Plan of Treatment Upcoming Encounters Date Type Department Care Team (Late st Contact Info) Description 07/29/2024 Hospital Encounter Heart and Vascular Unit Level 4 [place] [address] Faheem Joy MD [facility] [place] [address] 08/15/2024 9:00 AM EDT Office [place] [address] Dion Barlow MD [facility] [place] [address] 09/01/2024 9:40 AM EDT Office Visit Cardiology at [address] [address] Franky Shaver MD [facility] [place] [address] 09/01/2024 11:20 AM EDT Office Visit Dermatology at [address] [address] Gómez Mercer MD [facility] [place] [address] 09/21/2024 2:45 PM EDT Office Visit [place] [address] Trung Hoyos MD [facility] [place] [address] documented as of this encounter Visit Diagnoses Not on filedocumented in this encounter Care Teams Revenue Collector Relationship Specialty Start Date End Date Maximilian Fall MD [address] [place] [address] [address] [facility] 1 [place] [address] PCP - General 10/01/11 02/13/21 documented as of this encounter
--- OUTSIDE RECORDS SUMMARY | 2024-07-27 21:10 | XMS_ITS | Encounter Summary ---
Author Organization [facility] Address [facility] [place] [address] Care Team Providers Care Lime Sludge Kiln Operator Name Role Phone Maximilian Fall MD Primary Care Provider [phone] Encounter Details Date Type Department Care Team (Late st Contact Info) Description 11/27/2011 1:00 PM EST - 11/27/2011 1:45 PM EST [place] [address] Dion Osullivan MD [facility] [place] [address] COLONOSCOPY, DIAGNOSTIC (WRVU 3.26) Social History Tobacco [...] - 11/27/2011 2:37 PM EST Please call [phone], before 5pm with problems, questions or concerns, after 5pm call the Hospital at [phone] and ask to speak to the Material Cutter assistant front office manager and the chemicals fermentation operator will contactthat person for you. Discharge instructions reviewed with patient who expresses understanding. * Patient Instructions* Dion Osullivan MD - 11/27/2011 1:07 PM EST Please see Recommendations in the Provation procedure report which is documented in the procedural note in E-DH. * Attachments The following attachments cannot be sent through Care Everywhere. * COLONOSCOPY: WHAT TO EXPECT AT HOME (ANDORRAN) documented in this encounter Medications at Time [...] 1:06 PM EST [facility] Operative Note Patient Name: Naya Rodriguez : [id number] MR#: [id number] Case Date: 11/27/2011 Surgeon: Surgeon(s) and Role: * Dion OSULLIVAN MD - Primary Please see the Provation procedure report in the Procedures tab in eDH. documented in this encounter Plan of Treatment Upcoming Encounters Date Type Department Care Team (Late st Contact Info) Description 07/29/2024 Hospital Encounter Heart and Vascular Unit Level 4 [place] [address] Faheem Joy MD [facility] [address] 08/15/2024 9:00 AM EDT Office Visit Gastroenterology at [place] [phone] Dion Osullivan MD [facility] [place] [address] 09/01/2024 9:40 AM EDT Office Visit Cardiology at [address] [address] Franky Shaver MD [facility] [place] [address] 09/01/2024 11:20 AM EDT Office Visit Dermatology at [facility] [address] [place] [address] Gómez Mercer MD [facility] DR EDDIE [place] [address] 09/21/2024 2:45 PM EDT Office Visit [facility] [place] [address] Trung Hoyos MD [facility] [place] [address] documented as of this encounter Procedures Procedure [...] 4:38 PM EST) Surgical Pathology Report ? [facility] ? Provider: ?? Dion OSULLIVAN ?Pt. Name: ?? NAYA RODRIGUEZ ? Acc #: ?[id number] ?Pt. ? Col Date: ?? 11/27/2011 ?/Sex: [...] Stephen, rubbery mucosal polyp, the larger ? [facility] ? Provider: ?? Dion OSULLIVAN ?Pt. Name: ?? NAYA RODRIGUEZ ? Acc #: ?[id number] ?Pt. ? Col Date: ?? 11/27/2011 ?/Sex: [...] 61 YO with recent diagnosis of [facility] 11/27/2011 4:38 PM EST Dion Osullivan MD PATHOLOGY/CYTOLOGY O RDERABLES Performing Organization Address [facility] Co de Phone Number [facility] * Specimen to Pathology (surgical or derm) (11/27/2011 1:53 PM EST) AP Specimen 11/27/2011 1:53 PM EST 11/27/2011 1:53 PM EST Narrative [facility] - 11/27/2011 1:53 PM EST Specimen requisition ordered. ??Separate Pathology report to follow L Karthik Osullivan MD PATHOLOGY/CYTOLOGY O CEE Performing Organization Address [facility]/ZIP Co de Phone Number [facility] * Specimen to Pathology (surgical or derm) (11/27/2011 1:53 PM EST) AP Specimen 11/27/2011 1:53 PM EST 11/27/2011 1:53 PM EST Narrative [facility] - 11/27/2011 1:53 PM EST Specimen requisition ordered. ??Separate Pathology report to follow L Karthik Osullivan MD PATHOLOGY/CYTOLOGY O CEE Performing Organization Address [facility] Co de Phone Number [facility] * Specimen to Pathology (surgical or derm) (11/27/2011 1:53 PM EST) AP Specimen 11/27/2011 1:53 PM EST 11/27/2011 1:53 PM EST Narrative [facility] - 11/27/2011 1:53 PM EST Specimen requisition ordered. ??Separate Pathology report to follow L Karthik Osullivan MD PATHOLOGY/CYTOLOGY O CEE Performing Organization Address [facility] Co de Phone Number [facility] * COLONOSCOPY (11/27/2011 1:01 PM EST) COLONOSCOPY [facility] Endoscopy Patient Name: Naya Mirandags ? Procedure Date: 11/27/2011 01:01:31 PM ? Date of : 1950 ? Age: 61 ? Procedure: ? Colonoscopy Indications: ? Follow-up of left-sided chronic ? ulcerative colitis Providers: ? L Karthik Osullivan MD, Tyron Cee, ? RN, Qing López, Field Laborer Referring : ?Maximilian Fall MD Medicines: ? [...] time) documented in this encounter Care Teams Lime Sludge Kiln Operator Relationship Specialty Start Date End Date Maximilian Fall MD [address] [place] [address] PCP - General 10/01/11 02/13/21 documented as of this encounter
--- OUTSIDE RECORDS SUMMARY | 2024-07-27 21:10 | XMS_ITS | Encounter Summary ---
Author Organization Formerly [facility] [place] [address] Care Team Providers Care Operator Supply Name Role Phone Maximilian Flal MD Primary Care Provider [phone] Encounter Details Date Type Department Care Team (Late st Contact Info) Description 03/02/2012 External Results [place] [address] Dion Barlow MD [facility] [address] Social History Tobacco Use Types Packs/Day Years [...] Vascular Unit Level 4 [place] [address] Faheem Joy MD [facility] [place] [address] 08/15/2024 9:00 AM EDT Office Visit [place] [address] Dion Barlow MD [facility] [place] [address] 09/01/2024 9:40 AM EDT Office Visit Cardiology at [address] [place] [address] Franky Shaver MD [facility] [place] [address] 09/01/2024 11:20 AM EDT Office Visit Dermatology at [facility] [address] [place] [address] Gómez Mercer MD [facility] [place] [address] 09/21/2024 2:45 PM EDT Office Visit [facility] [place] [address] Trung Hoyos MD [facility] [place] [address] documented as of this encounter Procedures Procedure Name Priority Date/Time Associated Diagnosis Comments EXTERNAL LAB RESULTS Routine 03/04/2012 documented in this encounter Results * External Lab Results (03/04/2012) Blood specimen (specimen) L Karthik Barlow MD CHEMISTRY ORDERABLES documented in this encounter Visit Diagnoses Not on filedocumented in this encounter Care Teams Operator Supply Relationship Specialty Start Date End Date Maximilian Fall MD [address] [facility] [address] [place] [address] PCP - General 10/01/11 02/13/21 documented as of this encounter
--- OUTSIDE RECORDS SUMMARY | 2024-07-27 21:10 | XMS_ITS | Encounter Summary ---
Author Organization [facility] Address [facility] [place] [address] Care Team Providers Care Internal Control Analyst Name Role Phone More Naylor MD Primary Care Provider [phone] Reason for Visit * Reason Comments Follow-up Encounter Details Date Type Department Care Team (Late st Contact Info) Description 09/20/2012 10:00 AM EDT Follow-Up [place] [address] Dion Barlow MD [facility] [place] [address] Ulcerative colitis (Primary Dx); Dyspepsia; UC (ulcerative [...] colitis Colonoscopy 04/08/10 ([facility] [...] has left-sided ulcerative colitis with persistently active pmjc-du-plqccmgr symptoms andmildly active disease endoscopically. His colitis [...] MD [address] [facility] [address] documented in this encounter Plan of Treatment Upcoming Encounters Date Type Department Care Team (Late st Contact Info) Description 07/29/2024 Hospital Encounter Heart and Vascular Unit Level 4 [place] [phone] Faheem Joy MD [facility] [place] [address] 08/15/2024 9:00 AM EDT Office Visit Gastroenterology at [place] [phone] Dion Barlow MD [facility] [place] [address] 09/01/2024 9:40 AM EDT Office Visit Cardiology at [address] [address] Franky Shaver MD [facility] [place] [address] 09/01/2024 11:20 AM EDT Office Visit Dermatology at [place] [address] [place] [address] Gómez Mercer MD [facility] DR [place] [address] 09/21/2024 2:45 PM EDT Office Visit Pain [facility] [place] [address] Trung Hoyos MD [facility] [place] [address] documented as of this encounter Procedures Procedure [...] Gran % 0.30 0.00 - 0.66 % [facility] MILLENNIUM Comment: Immature granulocytes(IG's)percentage and absolute count will include metamyelocytes, myelocytes, and promyelocytes. Blood smears from CBCs yielding IG's will be scanned manually for concordance. If this scan disagrees with the automated IG or if promyelocytes are noted, a manual differential will be performed. Immature Gran Absolute 0.02 0.00 - 0.05 x10(3)/mcL [facility] Blood specimen (specimen) 09/20/2012 11:17 AM EDT 09/20/2012 11:23 AM EDT L Karthik Barlow MD HEMATOLOGY ORDERABLE S Performing Organization Address [facility] Number [facility] * (ABNORMAL) TSH (09/20/2012 11:17 AM EDT) Thyroid Stimulating Hormone 4.77(H) 0.27 - 4.20 mcIU/mL [facility] Blood specimen (specimen) 09/20/2012 11:17 AM EDT 09/20/2012 11:23 AM EDT Narrative Resulting Agency Comment Spec In Lab L Karthik Barlow MD CHEMISTRY ORDERABLES Performing Organization Address [facility] Number [facility] * Lipase (09/20/2012 11:17 AM EDT) Lipase 32 0 - 60 unit/L [facility] Blood specimen (specimen) 09/20/2012 11:17 AM EDT 09/20/2012 11:23 AM EDT Narrative Resulting Agency Comment Spec In Lab L Karthik Barlow MD CHEMISTRY ORDERABLES Performing Organization Address [facility] Phone Number [facility] * High Sensitivity CRP (09/20/2012 11:17 AM EDT) C-Reactive Protein High Sensitivity 3.7 mg/L [facility] Comment: Interpretations: 1) For cardiac [...] L Karthik Barlow MD CHEMISTRY ORDERABLES [facility] * (ABNORMAL) CMP w/fasting Glucose (09/20/2012 11:17 AM EDT) Glucose Fasting 110(H) 65 - 99 mg/dL [facility] Comment: ?Fasting* Glucose Interpretive Criteria Normal ?65-99 [...] of Diabetes Mellitus, Position Statement from the [place] Diabetes [employer]. ??Diabetes Care, Volume 33, Supplement 1, Nov 2009 Blood Urea Nitrogen 13 10 - 20 mg/dL CERNER MILLENNIUM Creatinine 0.81 0.80 - 1.50 mg/dL [facility] MILLENNIUM Comment: Please note that the pediatric reference intervals supplied above were not validated at [facility]. Results from pediatric patients should be interpreted [...] Lab L Karthik Barlow MD CHEMISTRY ORDERABLES [facility] * (ABNORMAL) CBC (with Diff) (09/20/2012 11:17 [...] unspecified documented in this encounter Care Teams Internal Control Analyst Relationship Specialty Start Date End Date More Naylor MD [address] [place] [address] PCP - General 10/01/11 02/13/21 documented as of this encounter
--- OUTSIDE RECORDS SUMMARY | 2024-07-27 21:10 | XMS_ITS | Encounter Summary ---
Author Organization [facility] Address [facility] [place] [address] Care Team Providers Care Biofuels Engineering Manager Name Role Phone More Naylor MD Primary Care Provider [phone] Reason for Visit * Reason Comments Follow-up Encounter Details Date Type Department Care Team (Late st Contact Info) Description 01/28/2012 3:00 PM EST Follow-[place] [address] Dion Barlow MD [facility] [place] [address] Ulcerative colitis (Primary Dx) Discharge Disposition: Home [...] Ulcerative colitis Colonoscopy 04/08/10 (Dr. Gomes [facility]) - inflammation only within the rectum and sigmoid; extent of the exam was to the hepatic flexure; biopsies proximal to the sigmoid nl Repeat exam 11/27/11 ([facility]): mildly active colitis [...] first time since his colonoscopy in early [facility]. At that time, he had [...] sooner of symptoms worsen. Davina Barlow MD Propeller Engineerafter school tutor Section of Gastroenterology [place] [address] CC: MORE NAYLOR MD [address] [facility] [address] documented in this encounter Plan of Treatment Upcoming Encounters Date Type Department Care Team (Late st Contact Info) Description 07/29/2024 Hospital Encounter Heart and Vascular Unit Level 4 Wing A at [place] [phone] Faheem Joy MD [facility] [place] [address] 08/15/2024 9:00 AM EDT Office Visit Gastroenterology at [place] [phone] Dion Barlow MD [facility] [place] [address] 09/01/2024 9:40 AM EDT Office Visit Cardiology at [address] [address] Franky Shaver MD [facility] [place] [address] 09/01/2024 11:20 AM EDT Office Visit Dermatology at [address] [address] Gómez Mercer MD [facility] DR [place] [address] 09/21/2024 2:45 PM EDT Office Visit Pain and Spine Center at [place] [phone] Trung Hoyos MD [facility] [address] documented as of this encounter Visit Diagnoses Diagnosis Ulcerative colitis- Primary Ulcerative colitis, unspecified documented in this encounter Care Teams Biofuels Engineering Manager Relationship Specialty Start Date End Date More Naylor MD [address] [place] [address] PCP - General 10/01/11 02/13/21 documented as of this encounter
--- OUTSIDE RECORDS SUMMARY | 2024-07-27 21:10 | XMS_ITS | Encounter Summary ---
Author Organization [facility] Address [facility] [place] [address] Care Team Providers Care Submarine Element Coordinator Name Role Phone More Naylor MD Primary Care Provider [phone] Reason for Visit * Reason Comments Follow-up Encounter Details Date Type Department Care Team (Late st Contact Info) Description 04/02/2012 12:30 PM EDT Follow-Up [place] [address] Marcelle Weinberg, JAZMINE [facility] [place] [address] UC (ulcerative colitis) (Primary Dx) Discharge Disposition: [...] colitis Colonoscopy 04/08/10 ([facility]. [facility] [...] CC: MORE NAYLOR MD [address] [facility] [place] [address] documented in this encounter Plan of Treatment Upcoming Encounters Date Type Department Care Team (Late st Contact Info) Description 07/29/2024 Hospital Encounter Heart and Vascular Unit Level [place] [address] Faheem Joy MD [facility] [place] [address] 08/15/2024 9:00 AM EDT Office Visit [place] [address] Dion Barlow MD [facility] [place] [address] 09/01/2024 9:40 AM EDT Office Visit Cardiology at [address] [address] Franky Shaver MD [facility] [place] [address] 09/01/2024 11:20 AM EDT Office Visit Dermatology at [facility] [address] [place] [address] Gómez Mercer MD [facility] DR ED[facility] [address] 09/21/2024 2:45 PM EDT Office Visit Pain and Spine Center at [facility] [place] [address] Trung Hoyos MD [facility] [place] [address] documented as of this encounter [...] Lab L Karthik Barlow MD CHEMISTRY ORDERABLES [email or web address] * (ABNORMAL) DIFFERENTIAL, AUTOMATED (04/02/2012 1:39 PM [...] Absolute 0.02 0.00 - 0.05 x10(3)/mc L [facility] Blood specimen (specimen) 04/02/2012 1:39 PM EDT 04/02/2012 1:48 PM EDT L Karthik Barlow MD HEMATOLOGY ORDERABLE S [facility] * TPMT Enzyme (04/02/2012 1:39 PM EDT) Pathologist [facility] TPMT Enzyme See Note CERNER MILLENNIUM Comment: Normal ??Activity. Please see scanned report in Chart Review under the Non- Laboratory Heading. Blood specimen (specimen) 04/02/2012 1:39 PM EDT 04/02/2012 2:50 PM EDT Narrative Resulting Agency Comment Spec In Lab L Karthik Barlow MD CHEMISTRY ORDERABLES Performing Organization Address [facility] de Phone Number [facility] * Lipase (04/02/2012 1:39 PM EDT) Lipase 23 0 - 60 unit/L [facility] Blood specimen (specimen) 04/02/2012 1:39 PM EDT 04/02/2012 1:48 PM EDT Narrative Resulting Agency Comment Spec In Lab L Karthik Barlow MD CHEMISTRY ORDERABLES Performing Organization Address [facility] Phone Number [facility] * Amylase (04/02/2012 1:39 PM EDT) Amylase 32 28 - 100 unit/L [facility] Blood specimen (specimen) 04/02/2012 1:39 PM EDT 04/02/2012 1:48 PM EDT Narrative Resulting Agency Comment Spec In Lab L Karthik Barlow MD CHEMISTRY ORDERABLES Performing Organization Address [facility] de Phone Number [facility] * High Sensitivity CRP (04/02/2012 1:39 PM EDT) C-Reactive Protein High Sensitivity 3.1 mg/L [facility] Comment: Interpretations: 1) For cardiac risk [...] CHEMISTRY ORDERABLES Performing Organization Address [facility] de Phone Number [facility] [email or web address] * Sedimentation rate (04/02/2012 1:39 PM EDT) Pathologist [facility] Sedimentation Rate Automated 12 0 - 15 mm/hr [facility] Blood specimen (specimen) 04/02/2012 1:39 PM EDT 04/02/2012 1:48 PM EDT Narrative Resulting Agency Comment Spec In Lab L Karthik Barlow MD HEMATOLOGY ORDERABLE S Performing Organization Address [facility] de Phone Number [facility] * (ABNORMAL) CMP w/fasting Glucose (04/02/2012 1:39 PM EDT) Glucose Fasting 158(H) 65 - 99 mg/dL [facility] Comment: ?Fasting* Glucose Interpretive Criteria Normal [...] of Diabetes Mellitus, Position Statement from the [place] Diabetes Association. ??Diabetes Care, Volume 33, Supplement [...] [facility] * (ABNORMAL) CBC (with Diff) (04/02/2012 1:39 PM EDT) White Blood Cell 8.0 4.0 - 10.0 x10(3)/mc L [facility] Red Blood Cell 4.29(L) 4.63 - 6.08 [...] unspecified documented in this encounter Care Teams Submarine Element Coordinator Relationship Specialty Start Date End Date More Naylor MD [address] [place] [address] PCP - General 10/01/11 02/13/21 documented as of this encounter
--- OUTSIDE RECORDS SUMMARY | 2024-07-27 21:10 | XMS_ITS | Encounter Summary ---
Author Organization [facility] [place] [address] Care Team Providers Care English Drawer Name Role Phone Maximilian Fall MD Primary Care Provider [phone] Encounter Details Date Type Department Care Team (Late st Contact Info) Description 03/03/2012 Orders [place] [address] Mica Gore APRN [facility] [place] [address] Ulcerative colitis (Primary Dx) Social History Tobacco [...] Vascular Unit Level 4 [place] [address] Faheem Joy MD [facility] [place] [address] 08/15/2024 9:00 AM EDT Office [place] [address] Dion Barlow MD [facility] [place] [address] 09/01/2024 9:40 AM EDT Office Visit Cardiology at [address] [place] [address] Franky Shaver MD [facility] [place] [address] 09/01/2024 11:20 AM EDT Office Visit Dermatology at [facility] [address] [place] [address] Gómez Mercer MD [facility] [address] 09/21/2024 2:45 PM EDT Office Visit [place] [address] Trung Hoyos MD [facility] [place] [address] documented as of this encounter Procedures Procedure Name Priority Date/Time Associated Diagnosis Comments FLEXIBLE SIGMOIDOSCOPY Routine 2 1:15 PM EDT Ulcerative colitis documented in this encounter Results * FLEXIBLE SIGMOIDOSCOPY (03/16/2012 1:15 PM EDT) FLEXIBLE SIGMOIDOSCOPY [facility] Endoscopy Patient Name: Brian Mirandags ? Procedure Date: 03/16/2012 1:15 PM ? Date of : 1950 ? Age: 61 ? Order #: [id number] ? Procedure: ? Flexible Sigmoidoscopy Indications: ? pt with active UC, assess severity ? prior to entry in MTX study Providers: ? Enrico Tellez MD, April Augustine ? RONY Archibald, Kingsley [place], ? Engineering Document Control Clerk Referring MD: ?Maximilian Fall MD Requesting Provider: [...] GENERAL SURGICAL ORD ERABLES Performing Organization Address City/State/[facility] Co de Phone Number [employer] documented in this encounter Visit Diagnoses Diagnosis Ulcerative colitis- Primary Ulcerative colitis, unspecified documented in this encounter Care Teams English Drawer Relationship Specialty Start Date End Date Maximilian Fall MD [address] [place] [address] PCP - General 10/01/11 02/13/21 documented as of this encounter
--- OUTSIDE RECORDS SUMMARY | 2024-07-27 21:10 | XMS_ITS | Encounter Summary ---
Author Organization [facility] Address [facility] [place] [address] Care Team Providers Care Supervisor Diagnostic Name Role Phone Maximilian Fall MD Primary Care Provider [phone] Encounter Details Date Type Department Care Team (Latest Contact Info) Description 07/13/2014 1:25 PM EDT - 07/13/2014 4:30 PM EDT Hospital Encounter [place] [address] Dion Osullivan MD [facility] [place] [address] Discharge Disposition: Home Social History Tobacco Use [...] - 07/13/2014 4:14 PM EDT Please call [phone], before 5pm with problems, questions or concerns, after 5pm call the Hospital at [phone] and ask to speak to the Lan Specialist program director/air personality and the yard motor operator will contactthat person for you. Discharge [...] through Care Everywhere. * COLONOSCOPY : POSTOP (MALDIVIAN) documented in this encounter Medications at Time [...] Osullivan MD - 07/13/2014 3:57 PM EDT [facility] Operative Note Patient Name: Naya Rodriguez : [id number] MR#: [id number] Case Date: 07/13/2014 Surgeon: Surgeon(s) and Role: [...] Vascular Unit Level 4 [place] [address] Faheem Joy MD [facility] [place] [address] 08/15/2024 9:00 AM EDT Office Visit Gastroenterology at [place] [phone] Dion Osullivan MD [facility] [place] [address] 09/01/2024 9:40 AM EDT Office Visit Cardiology at [address] [phone] Franky Shaver MD [facility] [place] [address] 09/01/2024 11:20 AM EDT Office Visit Dermatology at [address] [address] Gómez Mercer MD [facility] DR [place] [address] 09/21/2024 2:45 PM EDT Office Visit [place] [address] Trung Hoyos MD [facility] [place] [address] documented as of this encounter Procedures Procedure [...] 3:58 PM EDT) Final Diagnosis ? [facility] ? Provider: ?? Dion OSULLIVAN ?Pt. Name: ?? SHANTNAYA ? Acc #: ?[id number] ?Pt. ? Col Date: ?? 07/13/2014 ? [...] Mucosal biopsies - R colon ? [facility] ? Provider: ?? Dion OSULLIVAN ?Pt. Name: ?? NAYA RODRIGUEZ ? Acc #: ?[id number] ?Pt. ? Col Date: ?? 07/13/2014 ? /Sex: ?1950,(64 years),Male ? Rec Date: ?? 07/13/2014 ? LOC: ?4T ? SURGICAL PATHOLOGY ? Clinical History: ? 64-year-old with a history of left sided UC ? Clinical Diagnosis: ? Same 07/14/2014 4:[address] [facility] GI Biopsy 07/13/2014 3:58 PM EDT 07/13/2014 3:58 PM EDT GI Biopsy 07/13/2014 3:58 PM EDT 07/13/2014 3:58 PM EDT GI Biopsy 07/13/2014 3:58 PM EDT 07/13/2014 3:58 PM EDT L Karthik Osullivan MD PATHOLOGY/CYTOLOGY O CEE Performing Organization Address [facility] Co de Phone Number [facility] [place] [address] * Specimen to Pathology (surgical or derm) (07/13/2014 3:58 PM EDT) AP Specimen 07/13/2014 3:58 PM EDT 07/13/2014 3:58 PM EDT Narrative CERNER TIAGOENNIUM - 07/13/2014 3:58 PM EDT Specimen requisition ordered. ??Separate Pathology report to follow L Karthik Osullivan MD PATHOLOGY/CYTOLOGY O CEE Performing Organization Address [facility] Co de Phone Number [facility] * Specimen to Pathology (surgical or derm) (07/13/2014 3:58 PM EDT) AP Specimen 07/13/2014 3:58 PM EDT 07/13/2014 3:58 PM EDT Narrative C[facility]ER TIAGOENNIUM - 07/13/2014 3:58 PM EDT Specimen requisition ordered. ??Separate Pathology report to follow L Karthik Osullivan MD PATHOLOGY/CYTOLOGY O CEE Performing Organization Address [facility] Co de Phone Number [facility] * Specimen to Pathology (surgical or derm) (07/13/2014 3:58 PM EDT) AP Specimen 07/13/2014 3:58 PM EDT 07/13/2014 3:58 PM EDT Narrative [facility]EDER[facility] - 07/13/2014 3:58 PM EDT Specimen requisition ordered. ??Separate Pathology report to follow L Karthik Osullivan MD PATHOLOGY/CYTOLOGY Ozzie MIKE [facility] * COLONOSCOPY (07/13/2014 2:51 PM EDT) COLONOSCOPY [facility] Endoscopy Patient Name: Naya Rodriguez ? Procedure Date: 07/13/2014 2:51 PM ? [facility]: [id number] ? Date of : 1950 ? Age: 64 ? Order #: [id number] ? Procedure: ? Colonoscopy Indications: ? Follow-up of left-sided chronic ? ulcerative colitis Providers: ? L. Karthik Osullivan MD, Emily Quinn, ? RN, Luna Connors RN, Cam Ghosh ? Doug, Fuse Coiler Referring MD: ?Maximilian Fall MD Medicines: ? [...] Glucose, POC 167 60 - 199 mg/dL [facility] Comment: Supplemental ranges: <140 mg/dL before meals <180 mg/dL all other times of the day Blood specimen (specimen) 07/13/2014 1:59 PM EDT 07/13/2014 1:59 PM EDT Dion Osullivan MD POINT OF CARE TEST O RDERABLES Performing Organization Address City/[facility]/ZIP Co de Phone Number [facility] documented in this encounter Visit Diagnoses Not [...] 1459 (Given - Provid er: Emily Quinn, RONY)1504 (Given - Provider: Emily Quinn RN)1510 (Given [...] documented in this encounter Care Teams Supervisor Diagnostic Relationship Specialty Start Date End Date Maximilian Fall MD [address] [place] [address] PCP - General 10/01/11 02/13/21 documented as of this encounter
--- OUTSIDE RECORDS SUMMARY | 2024-07-27 21:10 | XMS_ITS | Encounter Summary ---
Author Organization [facility] Address [facility] [place] [address] Care Team Providers Care Executive Search Consultant Name Role Phone Maximilian Fall MD Primary Care Provider [phone] Reason for Visit * Reason Onset Date Comments Research 02/20/2012 discuss [facility] Encounter Details Date Type Department Care Team (Late st Contact Info) Description 02/20/2012 Telephone [place] [address] Mica Gore, JAZMINE [facility] [place] [address] Research (discuss [facility]) Social History Tobacco [...] Vascular Unit Level 4 [place] [address] Faheem Joy MD [facility] [place] [address] 08/15/2024 9:00 AM EDT Office Visit [place] [address] Dion Barlow MD [facility] [place] [address] 09/01/2024 9:40 AM EDT Office Visit Cardiology at [address] [phone] Franky Shaver MD [facility] [place] [address] 09/01/2024 11:20 AM EDT Office Visit Dermatology at [facility] [address] [place] [address] Gómez Mercer MD [facility] DR EDD[place] [address] 09/21/2024 2:45 PM EDT Office Visit [facility] [place] [address] Trung Hoyos MD [facility] [place] [address] documented as of this encounter Visit Diagnoses Not on filedocumented in this encounter Care Teams Executive Search Consultant Relationship Specialty Start Date End Date Maximilian Fall MD [address] [place] [address] PCP - General 10/01/11 02/13/21 documented as of this encounter
--- OUTSIDE RECORDS SUMMARY | 2024-07-27 21:10 | XMS_ITS | Encounter Summary ---
Author Organization [facility] Address [facility] [place] [address] Care Team Providers Care Staff Radiologist Name Role Phone More Naylor MD Primary Care Provider [phone] Reason for Visit * Reason Comments Ulcerative Colitis Encounter Details Date Type Department Care Team (Late st Contact Info) Description 04/21/2012 1:30 PM EDT [place] [address] Dion Barlow MD [facility] [place] [address] Ulcerative colitis (Primary Dx) Discharge Disposition: Home [...] ??? Ulcerative colitis Colonoscopy 04/08/10 (Dr. Gomes [facility]) - inflammation only within the rectum and sigmoid; extent of the exam was to the hepatic flexure; biopsies proximal to the sigmoid nl Repeat exam 11/27/11 ([facility] [...] has left-sided ulcerative colitis with persistently active flex-lf-xyxmtnnm symptoms andmildly active disease endoscopically. He failed [...] CC: MORE NAYLOR MD [address] [facility] [address] documented in this encounter Plan of Treatment Upcoming Encounters Date Type Department Care Team (Late st Contact Info) Description 07/29/2024 Hospital Encounter Heart and Vascular Unit Level 4 [place] [address] Faheem Joy MD [facility] [place] [address] 08/15/2024 9:00 AM EDT Office Visit Gastroenterology at [address] Dion Barlow MD [facility] [place] [address] 09/01/2024 9:40 AM EDT Office Visit Cardiology at [address] [address] Franky Shaver MD [facility] [place] [address] 09/01/2024 11:20 AM EDT Office Visit Dermatology at [address] [place] [address] Gómez Mercer MD [facility] [place] [address] 09/21/2024 2:45 PM EDT Office Visit [place] [address] Trung Hoyos MD [facility] [place] [address] documented as of this encounter Visit Diagnoses Diagnosis Ulcerative colitis- Primary Ulcerative colitis, unspecified documented in this encounter Care Teams Staff Radiologist Relationship Specialty Start Date End Date More Naylor MD [address] [facility] 1 [place] [address] PCP - General 10/01/11 02/13/21 documented as of this encounter
--- OUTSIDE RECORDS SUMMARY | 2024-07-27 21:10 | XMS_ITS | Encounter Summary ---
Author Organization [facility] Address [facility] [place] [address] Care Team Providers Care Auction Clerk Name Role Phone More Naylor MD Primary Care Provider [phone] Reason for Visit * Reason Comments Follow-up Encounter Details Date Type Department Care Team (Late st Contact Info) Description 11/01/2013 2:00 PM EST Follow-[place] [address] Dion Barlow MD [facility] [place] [address] Ulcerative colitis (Primary Dx) Discharge Disposition: Home [...] ??? Ulcerative colitis Colonoscopy 04/08/10 ([facility] [...] has left-sided ulcerative colitis with persistently active zjks-le-zieohclc symptom - now worse off of his [...] CC: MORE NAYLOR MD [address] [place] [address] documented in this encounter Plan of Treatment Upcoming Encounters Date Type Department Care Team (Late st Contact Info) Description 07/29/2024 Hospital Encounter Heart and Vascular Unit Level [place] [address] Faheem Joy MD [facility] [address] 08/15/2024 9:00 AM EDT Office Visit [place] [phone] Dion Barlow MD [facility] [place] [address] 09/01/2024 9:40 AM EDT Office Visit Cardiology at [address] [place] [address] Franky Shaver MD [facility] [address] 09/01/2024 11:20 AM EDT Office Visit Dermatology at [facility] [address] [place] [address] Gómez Mercer MD [facility] [place] [address] 09/21/2024 2:45 PM EDT Office Visit [facility] [place] [address] Trung Hoyos MD [facility] [place] [address] documented as of this encounter Procedures Procedure [...] L Karthik Barlow MD [facility]ATOLOGY ORDERABLE S [facility] * (ABNORMAL) Comprehensive metabolic panel (non-fasting) (11/01/2013 3:39 PM EST) Glucose 110 60 - 199 mg/dL CERNER MILLENNIUM Comment:Diabetes: >=200 mg/d L plus symptoms Blood Urea Nitrogen 11 10 - 20 mg/dL CERNER MILLENNIUM Creatinine 0.91 0.80 - 1.50 mg/dL CERNER MILLENNIUM Comment: Please note that the pediatric reference intervals supplied above were not validated at [facility]. Results from pediatric patients should be interpreted [...] CERNER MILLENNIUM * (ABNORMAL) CBC (with Diff) (11/01/2013 3:39 [...] unspecified documented in this encounter Care Teams Auction Clerk Relationship Specialty Start Date End Date More Naylor MD [address] [place] [address] PCP - General 10/01/11 02/13/21 documented as of this encounter
--- OUTSIDE RECORDS SUMMARY | 2024-07-27 21:10 | XMS_ITS | Encounter Summary ---
Author Organization [facility] [place] [address] Care Team Providers Care Fixed Route Bus Operator Name Role Phone Maximilian Fall MD Primary Care Provider [phone] Reason for Visit * Reason Onset Date Comments Medication Refill 04/05/2014 Encounter Details Date Type Department Care Team (Late st Contact Info) Description 04/05/2014 Refill [place] [address] Dion Barlow MD [facility] [place] [address] Social History Tobacco Use Types Packs/Day Years [...] Vascular Unit Level 4 [place] [address] Faheem Joy MD [facility] [place] [address] 08/15/2024 9:00 AM EDT Office [place] [address] Dion Barlow MD [facility] [place] [address] 09/01/2024 9:40 AM EDT Office Visit Cardiology at [address] [place] [address] Franky Shaver MD [facility] [place] [address] 09/01/2024 11:20 AM EDT Office Visit Dermatology at [facility] [address] [place] [address] Gómez Mercer MD [facility] [address] 09/21/2024 2:45 PM EDT Office Visit [facility] [place] [address] Trung Hoyos MD [facility] [place] [address] documented as of this encounter Visit Diagnoses Not on filedocumented in this encounter Care Teams Fixed Route Bus Operator Relationship Specialty Start Date End Date Maximilian Fall MD [address] [facility] 1 [place] [address] PCP - General 10/01/11 02/13/21 documented as of this encounter
--- OUTSIDE RECORDS SUMMARY | 2024-07-27 21:10 | XMS_ITS | Encounter Summary ---
Author Organization [facility] [address] Care Team Providers Care Video News Editor Name Role Phone Maximilian Fall MD Primary Care Provider [phone] Encounter Details Date Type Department Care Team (Late st Contact Info) Description 03/02/2012 External Results [place] [address] Dion Barlow MD [facility] [place] [address] Social History Tobacco Use Types Packs/Day Years [...] Vascular Unit Level 4 [place] [address] Faheem Joy MD [facility] [place] [address] 08/15/2024 9:00 AM EDT Office [place] [address] Dion Barlow MD [facility] [place] [address] 09/01/2024 9:40 AM EDT Office Visit Cardiology at [address] [place] [address] Franky Shaver MD [facility] [place] [address] 09/01/2024 11:20 AM EDT Office Visit Dermatology at [facility] [address] [place] [address] Gómez Mercer MD [facility] [address] 09/21/2024 2:45 PM EDT Office Visit [place] [address] Trung Hoyos MD [facility] [place] [address] documented as of this encounter Procedures Procedure Name Priority Date/Time Associated Diagnosis Comments EXTERNAL LAB RESULTS Routine 03/02/2012 documented in this encounter Results * External Lab Results (03/02/2012) Stool specimen (specimen) 03/02/2012 L Karthik Barlow MD CHEMISTRY ORDERABLES documented in this encounter Visit Diagnoses Not on filedocumented in this encounter Care Teams Video News Editor Relationship Specialty Start Date End Date Maximilian Fall MD [address] [place] [address] PCP - General 10/01/11 02/13/21 documented as of this encounter
--- OUTSIDE RECORDS SUMMARY | 2024-07-27 21:10 | XMS_ITS | Encounter Summary ---
Author Organization [facility] Address [facility] [place] [address] Care Team Providers Care Practicing Dermatologist Name Role Phone Maximilian Fall MD Primary Care Provider [phone] Encounter Details Date Type Department Care Team (Latest Contact Info) Description 10/01/2012 2:23 PM EST - 10/01/2012 6:31 PM EST Hospital Encounter [place] [address] Dion Osullivan MD [facility] [place] [address] Discharge Disposition: Home Social History Tobacco Use [...] GI ENDOSCOPY: WHAT TO EXPECT AT HOME (GREEK) documented in this encounter Medications at Time [...] Osullivan MD - 10/01/2012 5:07 PM EST [facility] Operative Note Patient Name: Naya Rodriguez : [id number] MR#: [id number] Case Date: 10/01/2012 Surgeon: Surgeon(s) and Role: [...] Vascular Unit Level 4 [place] [address] Faheem oJy MD [facility] [place] [address] 08/15/2024 9:00 AM EDT Office Visit Gastroenterology at [place] [phone] Dion Osullivan MD [facility] [place] [address] 09/01/2024 9:40 AM EDT Office Visit Cardiology at [address] [address] Franky Shaver MD [facility] [place] [address] 09/01/2024 11:20 AM EDT Office Visit Dermatology at [facility] [address] [place] [address] Gómez Mercer MD [facility] DR EDD[place] [address] 09/21/2024 2:45 PM EDT Office Visit [facility] [place] [address] Trung Hoyos MD [facility] [place] [address] documented as of this encounter Procedures Procedure [...] 5:54 PM EST) Surgical Pathology Report ? [facility] ? Provider: ?? Dion OSULLIVAN ?Pt. Name: ?? NAYA RODRIGUEZ ? Acc #: ?[id number] ?Pt. ? Col Date: ?? 10/01/2012 ? [...] is: ? 62 yo with dyspepsia CERNER MILLBANNERIUM 10/01/2012 5:54 PM EST L Karthik Osullivan MD PATHOLOGY/CYTOLOGY O CEE Performing Organization Address [facility] Co de Phone Number DURGA ORDOÑEZSpotigo * Specimen to Pathology (surgical or derm) (10/01/2012 5:09 PM EST) AP Specimen 10/01/2012 5:09 PM EST 10/01/2012 5:09 PM EST Narrative CERNER MILLENNIUM - 10/01/2012 5:09 PM EST Specimen requisition ordered. ??Separate Pathology report to follow L Karthik Osullivan MD PATHOLOGY/CYTOLOGY O CEE Performing Organization Address [facility]/ZIP Co de Phone Number [facility] * UPPER GI ENDOSCOPY (10/01/2012 4:41 PM EST) UPPER GI ENDOSCOPY [facility] Endoscopy Patient Name: Naya Rodriguez ? Procedure Date: 10/01/2012 4:41 PM ? Date of : 1950 ? Age: 62 ? Order #: [id number] ? Procedure: ? Upper GI endoscopy Indications: ? Epigastric abdominal pain Providers: ? L Karthik Osullivan MD, Alannah Singletary, ? RN, Mona Osborne, Hse Advisor Referring : ?Maximilian Fall MD Medicines: ? [...] GENERAL SURGICAL ORD ERABLES [facility] * POCT GLUCOSE (10/01/2012 4:27 PM EST) Glucose, POC 84 60 - 199 mg/dL CERNER MILLENNIUM Comment: Supplemental ranges: <110 mg/dL before meals <200 mg/dL all other times of the day Blood specimen (specimen) 10/01/2012 4:27 PM EST 10/01/2012 4:27 PM EST L Karthik Osullivan MD POINT OF CARE TEST O RDERABLES Performing Organization Address City/State/ZIP Co in Phone Number [facility] documented in this encounter Visit Diagnoses Not [...] Thu10/01/12 at 2031, Sleep, Intra-Operative (Intra-Procedure), Routine 4 (Given - Provid er: Alannah Singletary RN)165 (Given - Provider: Alannah Singletary RN) documented in this encounter Care Teams Practicing Dermatologist Relationship Specialty Start Date End Date Maximilian Fall MD [address] [address] PCP - General 10/01/11 02/13/21 documented as of this encounter
--- OUTSIDE RECORDS SUMMARY | 2024-07-27 21:10 | XMS_ITS | Encounter Summary ---
Author Organization [facility] Address [facility] [place] [address] Care Team Providers Care Special Education Teachers Name Role Phone More Naylor MD Primary Care Provider [phone] Reason for Visit * Reason Comments Follow-up Encounter Details Date Type Department Care Team (Late st Contact Info) Description 03/06/2014 8:30 AM EDT Follow-[place] [address] Dion Barlow MD [facility] [place] [place] [address] Ulcerative colitis, with rectal bleeding (Primary Dx) [...] or most commonly, upper respiratory infections; positive gmly-xfxqzq-fkewocoz DNA antibodies, and rarely a lupus-like syndrome; [...] CC: MORE NAYLOR MD [address] [place] [address] documented in this encounter Plan of Treatment Upcoming Encounters Date Type Department Care Team (Late st Contact Info) Description 07/29/2024 Hospital Encounter Heart and Vascular Unit Level 4 [place] [address] Faheem Joy MD [facility] [place] [address] 08/15/2024 9:00 AM EDT Office Visit [place] [address] Dion Barlow MD [facility] [place] [address] 09/01/2024 9:40 AM EDT Office Visit Cardiology at [address] [address] Franky Shaver MD [facility] [place] [address] 09/01/2024 11:20 AM EDT Office Visit Dermatology at [address] [address] Gómez Mercer MD [facility] [place] [address] 09/21/2024 2:45 PM EDT Office Visit [facility] [place] [address] Trung Hoyos MD [facility] PAIN MANAGEMENT [place], [place] [address] documented as of this encounter Procedures Procedure [...] Lab L Karthik Barlow MD URINE ORDERABLES CERGIOVANNI MILLENNIUM * Differential, Automated (03/06/2014 9:39 AM [...] Gran Absolute 0.01 0.00 - 0.05 x10(3)/mcL CERNER MILLENNIUM Blood specimen (specimen) 03/06/2014 9:39 AM EDT 03/06/2014 9:47 AM EDT L Karthik Barlow MD HEMATOLOGY ORDERABLE S CERGIOVANNI ORDOÑEZENNIUM * QuantiFERON-TB Gold (03/06/2014 9:39 AM EDT) Pathologist [facility] Quantiferon-TB Gold Negative Negative [facility] Comment: Nil (IU/mL)=0.03 TB Ag minus Nil [...] Barlow MD CHEMISTRY ORDERABLES Performing Organization Address [facility] Phone Number DURGA FREDERICK * High Sensitivity CRP (03/06/2014 9:39 AM EDT) Pathologist [facility] C-Reactive Protein High Sensitivity 1.7 mg/L [facility] Comment: Interpretations: 1) For accurate cardiac [...] and Cardiovascular Disease. ??Circulation 2003; 107:499-511 2. Fabrizioker PM. ??Clinical applications of C-reactive protein for cardiovascular disease detection and prevention. ??Circulation 2003; 107:363-369 Blood specimen (specimen) 03/06/2014 9:39 AM EDT 03/06/2014 9:47 AM EDT Narrative Resulting Agency Comment Spec In Lab L Karthik Barlow MD CHEMISTRY ORDERABLES Performing Organization Address [facility] de Phone Number DURGA FREDERICK * (ABNORMAL) CBC (with Diff) (03/06/2014 9:39 AM EDT) Pathologist [facility] White Blood Cell 5.0 4.0 - 10.0 x10(3)/mc L CERNER MILLENNIUM Red Blood Cell 4.07(L) 4.63 - 6.08 x10(6)/mc L CERNER MILLENNIUM Hemoglobin 13.8 13.7 - 17.5 gm/dL CERNER MILLENNIUM Hematocrit 41.4 40.0 - 51.0 % CERNER MILLENNIUM Mean Cell Volume 101.7(H) 79.0 - 92.0 fL CERNER TIAGOENNIUM Mean Cell Hemoglobin 33.9(H) 25.6 - 32.2 pg CERNER TIAGOENNIUM Mean Cell Hemoglobin Concentration 33.3 32.0 - 36.5 gm/dL CERNER MILLENNIUM Platelet 210 145 - 370 x10(3)/mc L CERGIOVANNI ORDOÑEZENNIUM RDW Standard Deviation 47.4(H) 35.0 - 46.0 fL CERGIOVANNI ORDOÑEZENNIUM RDW coefficient of variation 12.9 10.9 [...] Primary documented in this encounter Care Teams Special Education Teachers Relationship Specialty Start Date End Date More Naylor MD [address] [place] [address] PCP - General 10/01/11 02/13/21 documented as of this encounter
--- OUTSIDE RECORDS SUMMARY | 2024-07-27 21:10 | XMS_ITS | Encounter Summary ---
Author Organization [facility] Address [facility] [place] [address] Care Team Providers Care Kick Press Setter Name Role Phone Maximilian Fall MD Primary Care Provider [phone] Reason for Visit * Reason Comments Follow-up Encounter Details Date Type Department Care Team (Late st Contact Info) Description 06/05/2014 9:30 AM EDT [place] [address] Marcelle Weinberg, JAZMINE [facility] [place] [address] Other ulcerative colitis (Primary Dx) Discharge Disposition: [...] colitis Colonoscopy 04/08/10 (Dr. Gomes [facility]) [...] as scheduled in August or sooner with pa as needed documented in this encounter Plan of Treatment Upcoming Encounters Date Type Department Care Team (Late st Contact Info) Description 07/29/2024 Hospital Encounter Heart and Vascular Unit Level 4 [place] [address] Faheem Joy MD [facility] [place] [address] 08/15/2024 9:00 AM EDT Office [place] [address] Dion Barlow MD [facility] [place] [address] 09/01/2024 9:40 AM EDT Office Visit Cardiology at [address] [address] Franky Shavre MD [facility] [place] [address] 09/01/2024 11:20 AM EDT Office Visit Dermatology at [facility] [address] [place] [address] Gómez Mercer MD [facility] DR EDDIE [place] [address] 09/21/2024 2:45 PM EDT Office Visit Pain and Spine Center at [facility] [place] [address] Trung Hoyos MD [facility] [place] [address] Scheduled Orders Name Type Priority Associated Diagnoses Orde r Schedule COLONOSCOPY Procedures Routine Other ulcerative colitis Ordered: 06/05/2014 documented as of this encounter Visit Diagnoses Diagnosis Other ulcerative colitis- Primary documented in this encounter Care Teams Kick Press Setter Relationship Specialty Start Date End Date Maximilian Fall MD [address] [place] [address] PCP - General 10/01/11 02/13/21 documented as of this encounter
--- OUTSIDE RECORDS SUMMARY | 2024-07-27 21:11 | XMS_ITS | Encounter Summary ---
Author Organization [facility] Address [facility] [place] [address] Care Team Providers Care Special [employer] Weapons Sergeant Name Role Phone More Naylor MD Primary Care Provider [phone] Reason for Visit * Reason Comments Follow-up Encounter Details Date Type Department Care Team (Late st Contact Info) Description 11/05/2011 2:00 PM EST Follow-Up [place] [address] Dion Barlow MD [facility] [place] [address] Ulcerative colitis (Primary Dx) Discharge Disposition: Home [...] the preparation at this time. Please call [phone] to let us know that you cannot [...] time. ?? Please plan to be at [facility] for about 3 hours; please see your letter for estimated procedure and discharge times. If you have read the information thoroughly, and still have questions about what you have read, please call [phone] between the hours of 7:00am - 7:00pm, Thursday - Thursday and a nurse will assist you. If you have an urgent matter after hours, please call [phone], and ask to speak to the Gastroenterology Fellow head of precision targeting. If you need to reschedule your colonoscopy, please call [phone]. We do have a high volume of [...] information packet from Gastroenterology and Hepatology and [facility]: ?? Please read ALL information in your information packet. ?? If you have read the information thoroughly, and still have questions about what you have read, please call [phone] between the hours of 7:00am - 7:00pm Thursday - Thursday, and a nurse will assist you. ?? If you have an urgent matter after hours, please call [phone], and ask to speak to the Gastroenterology Fellow head of precision targeting. ?? If you need to reschedule your colonoscopy, please call [phone]. We do have a high volume of patients for this exam, so please give a least 72 hours notice for routine rescheduling. MEDICATION INFORMATION ?? Please call your prescribing physician to see if it is safe for you to lessen the dose or stop your medication prior to this procedure. Please note: If you cannot safely stop these medications, please call [phone]. The prescribing physician can give you instructions [...] you arrive (2 hours before your procedure) [facility] () ?? You will need to arrive ONE HOUR before your procedure time, to help you prepare for your procedure; please see your letter for exact arrival time. ?? Please plan to be at [facility] for about 3 hours; please see [...] forms of transportation like cabs or buses. [email or web address] FREQUENTLY ASKED QUESTIONS [...] one do I follow? A: Please follow [facility] Gastroenterology instructions, NOT the instructions from the [...] you continue to have problems, please call [phone] during office hours at 7am - 5pm.After hours please call [phone], and ask for the Gastroenterology Fellow head of precision targeting. Q: Do I REALLY need to drink [...] have a deep chest cough, please call [phone] to see if you need to reschedule your appointment. Q: I am having my menstrual period. Should I reschedule my colonoscopy appointment? A: No. Your menstrual period will not interfere with your physician's ability to complete your procedure. [facility] FAQ 07/12/2009 Brian Rodriguez [address] [facility] [address] Thank you for choosing [facility] for your medical needs. You are scheduledfor a colonoscopy on at the [facility] at [facility] (Level 4). Below you will find [...] about what you have read, please call [phone] between the hours of 7:00am - 7:00pm Thursday - Thursday, and ask to speak to the Gastroenterology Fellow head of precision targeting. If you need to reschedule your procedure please call: [phone]. Thank you for choosing [facility]. Sincerely, The Gastroenterology and Hepatology Team and the [facility]oscopy Center at [facility] documented in this encounter Progress Notes * Dion Barlow MD - 11/05/2011 2:31 PM EST Patient Active Problem List Diagnoses ??? Ulcerative colitis [556.9J] Colonoscopy 04/08/10 (Dr. Gomes [facility] [...] 4. Arrange for colonoscopy. Davina Barlow MD Stripper Machine Operatortransitional care liaison Section of Gastroenterology [place] [address] CC: MORE NAYLOR MD [address] [place] [address] documented in this encounter Plan of Treatment Upcoming Encounters Date Type Department Care Team (Late st Contact Info) Description 07/29/2024 Hospital Encounter Heart and Vascular Unit Level 4 Wing A at [place] [phone] Faheem Joy MD [facility] [place] [address] 08/15/2024 9:00 AM EDT Office Visit Gastroenterology at [place] [phone] Dion Barlow MD [facility] [place] [address] 09/01/2024 9:40 AM EDT Office Visit Cardiology at [address] [place] [address] Franky Shaver MD [facility] [place] [address] 09/01/2024 11:20 AM EDT Office Visit Dermatology at [facility] [address] [place] [address] Gómez Mercer MD [facility] DR EDDIE S[place] [address] 09/21/2024 2:45 PM EDT Office Visit Pain [place] [phone] Trung Hoyos MD [facility] [place] [address] documented as of this encounter Procedures Procedure [...] ORDERABLE S DURGA FREDERICK * TPMT Enzyme (11/05/2011 3:15 PM EST) TPMT Enzyme See Note [facility] TIAGOENNIUM Comment: Normal Activity Please see scanned report in Chart Review under the Non-DH Laboratory Heading. Test performed by [employer], [address] [facility], [place] [address] Blood specimen (specimen) 11/05/2011 3:15 PM EST 11/05/2011 3:45 PM EST L Karthik Barlow MD CHEMISTRY ORDERABLES Performing Organization Address [facility] de Phone Number [facility] * High Sensitivity CRP (11/05/2011 3:15 PM EST) [facility] C-Reactive Protein High Sensitivity 2.3 mg/L [facility] Comment: Interpretations: 1) For cardiac risk assessment, [...] MD CHEMISTRY ORDERABLES Performing Organization Address [facility] de Phone Number [facility] * Sedimentation rate (11/05/2011 3:15 PM EST) Sedimentation Rate Automated 13 0 - 15 mm/hr CERNER MILLENNIUM Blood specimen (specimen) 11/05/2011 3:15 PM EST 11/05/2011 3:22 PM EST L Karthik Barlow MD HEMATOLOGY ORDERABLE S CERNER TIAGOENNIUM * CMP w/fasting Glucose (11/05/2011 3:15 PM [...] of Diabetes Mellitus, Position Statement from the [employer] Diabetes Association. ??Diabetes Care, Volume 33, Supplement [...] EST L Karthik Barlow MD CHEMISTRY ORDERABLES [facility] * (ABNORMAL) CBC (with Diff) (11/05/2011 3:15 [...] unspecified documented in this encounter Care Teams Special Forces Weapons Sergeant Relationship Specialty Start Date End Date More Naylor MD [address] [place] [address] PCP - General 10/01/11 02/13/21 documented as of this encounter
--- OUTSIDE RECORDS SUMMARY | 2024-07-27 21:11 | XMS_ITS | Encounter Summary ---
Author Organization [facility] Address [facility] [place] [address] Care Team Providers Care Collection Technician Name Role Phone More Naylor MD Primary Care Provider [phone] Reason for Visit * Reason Comments GI Problem Encounter Details Date Type Department Care Team (Late st Contact Info) Description 10/01/2011 9:30 AM EST Office [place] [address] Dion Barlow MD [facility] [place] [address] Ulcerative colitis (Primary Dx) Discharge Disposition: Home [...] 1. Stool studies to be done at [facility] - will give instructions and a kit [...] three kids. 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 He quit smoking in 1991 after [...] adenopathy and no thyromegaly. HEENT: PERRL, EOMI, RESOURCE ENGINEER and OP clear without ulceration or [...] 1. Stool studies to be done at [facility] - will give instructions, an order, and [...] questions 50 minutes of this 60 minute [id number] encounter were spent counseling the patient in the issuesoutlined above. Davina Barlow MD Surveillance Analystspot remover Section of Gastroenter[place] [address] [email or web address] CC: MORE NAYLOR MD [address] [facility] [address] documented in this encounter Plan of Treatment Upcoming Encounters Date Type Department Care Team (Late st Contact Info) Description 07/29/2024 Hospital Encounter Heart and Vascular Unit Level 4 Wing A at [place] [phone] Faheem Joy MD [facility] [place] [address] 08/15/2024 9:00 AM EDT Office Visit Gastroenterology at [place] [phone] Dion Barlow MD [facility] [place] [address] 09/01/2024 9:40 AM EDT Office Visit Cardiology at [address] [place] [phone] Franky Shaver MD [facility] [place] [address] 09/01/2024 11:20 AM EDT Office Visit Dermatology at [place] [address] [place] [address] Gómez Mercer MD [facility] DR EDD[place] [address] 09/21/2024 2:45 PM EDT Office Visit [place] [phone] Trung Hoyos MD [facility] [place] [address] documented as of this encounter Visit Diagnoses Diagnosis Ulcerative colitis- Primary Ulcerative colitis, unspecified documented in this encounter Care Teams Collection Technician Relationship Specialty Start Date End Date More Naylor MD [address] [facility] [address] [place] [address] PCP - General 10/01/11 02/13/21 documented as of this encounter
[2024-07-27] MEDS: Acetaminophen 325 MG TAB PO (22:28)
[2024-07-27] MEDS: Tamsulosin 0.4 MG CAPCR PO (22:28)
[2024-07-27] MEDS: Atorvastatin 40 MG TAB 80 MG PO (22:29)
[2024-07-27] MEDS: MAGNESIUM SULFATE 2 GM/50 ML BAG IVINF (22:29)
[2024-07-27] MEDS: Metoprolol 50 MG TAB PO (22:29)
[2024-07-27 22:34] LABS: Troponin I 97 ng/L (< or =60)
[2024-07-27] MEDS: sulfaSALAzine 500 MG TAB PO (23:32)
[2024-07-27] MEDS: Insulin Aspart 300 UNITS/3 ML PEN SC (23:32)
[2024-07-27] MEDS: Dicyclomine 20 MG TAB PO (23:33)
[2024-07-27 23:59] LABS: Troponin I 86 ng/L (< or =60)
[2024-07-28] VITALS (61 sets, daily range): BP systolic 82–140; BP diastolic 39–77; PULSE 59–88; RESP 13–29; TEMP 36.3–36.9; O2SAT 88–96
[2024-07-28 06:19] LABS: HCT 31.3 % (40.0-50.0); HGB 10.7 g/dL (13.5-17.5); MCH 34.2 pg (27.0-33.0); MCHC 34.2 % (32.0-36.0); MCV 100 fL (80-95); MPV 11.5 fL (8.0-11.0); Platelet Count 149 10^3/uL (130-400); RBC 3.13 10^6/uL (4.36-5.78); RDW 12.6 % (11.8-14.1); RDW-SD 45.5 fL; WBC 5.59 10^3/uL (4.4-10.8)
[2024-07-28 06:38] LABS: PTT Activated 65.5 sec (23.6-32.8)
[2024-07-28 06:43] LABS: ALT 18 U/L (16-63); AST 13 U/L (15-37); Albumin 3.4 g/dL (3.4-5.0); Alkaline Phosphatase 77 U/L (46-116); BUN 17 mg/dL (7-18); CREATININE 1.5 mg/dL (0.70-1.30); Chloride 103 mmol/L (98-107); Estimated GFR 47.95 (mL/min/1.73m2); Glucose 159 mg/dL (74-106); Magnesium 1.9 mg/dL (1.8-2.4); Potassium 3.4 mmol/L (3.5-5.1); Sodium 139 mmol/L (136-145); Total Protein 7.2 g/dL (6.4-8.2)
[2024-07-28] MEDS: Heparin in 0.45% NaCl 25,000 UNIT/250 ML BAG 14.5 UNIT IV (07:31)
[2024-07-28] MEDS: sulfaSALAzine 500 MG TAB 1500 MG PO ×2 (08:18→21:03)
[2024-07-28] MEDS: Pantoprazole 40 MG TABCR PO (08:19)
[2024-07-28] MEDS: Clopidogrel 75 MG TAB PO (08:19)
[2024-07-28] MEDS: Spironolactone 25 MG TAB PO (08:19)
[2024-07-28] MEDS: levoFLOXacin 500 MG TAB PO (08:19)
[2024-07-28] MEDS: Folic Acid 1 MG TAB PO (08:20)
[2024-07-28] MEDS: Aspirin E.C. 81 MG TABEC PO (08:20)
[2024-07-28] MEDS: Insulin Aspart 300 UNITS/3 ML PEN SC ×4 (08:20→21:10)
[2024-07-28] MEDS: Acetaminophen 325 MG TAB PO ×2 (08:48→21:03)
[2024-07-28] MEDS: Losartan 50 MG TAB 100 MG PO (08:52)
--- NOTE | 2024-07-28 10:38 | PGE_ITS ---
Date of Service Date of service: 07/28/24 Time of Service: 10:38 Assessment and Plan Assessment and plan (1) Non-ST elevation FL (NSTEMI): Start date: 07/27/24 Status: Acute Assessment and plan: -presented with increasing exertional dyspnea with no true chest pain but shoulder pain in the left leg appears to be osteoarthritic. -had With the previous non-STEMI and early June he did have jaw pain and this did not recur. -He had no other associated symptoms. -He did not receive nitroglycerin in the ED. -Troponins were positive and slightly trending upward with continued trending. -The patient was initiated on IV heparin with plans for transfer to [facility] cardiology for any interventions on 07/29/2024 (2) UTI (urinary tract infection): Start date: 07/27/24 Status: Acute Assessment and plan: -Patient will be treated with Levaquin orally with no other symptoms and a positive UA and dysuria. -This is recurrent. -Continue outpatient medical therapy for BPH and urinary symptoms. Qualifiers: Urinary tract infection type: acute cystitis Hematuria presence: with hematuria Qualified Code(s): N30.01 - Acute cystitis with hematuria (3) Hypomagnesemia: Start date: 07/27/24 Status: Acute Assessment and plan: -IV repletion with trending labs. -Patient is having ectopy which should respond to be replacement. (4) Essential hypertension: Assessment and plan: -Monitor on outpatient medical therapy adjusting as needed. (5) DM2 (diabetes mellitus, type 2): Assessment and plan: -Glucometer measurements before meals and at bedtime with corrective insulin coverage while hospitalized. Qualifiers: Diabetes mellitus long winder tender insulin use: with residential use Diabetes mellitus complication status: with neurologic complications Diabetes mellitus complication detail: with polyneuropathy Qualified Code(s): E11.42 - Type 2 diabetes mellitus with diabetic polyneuropathy; Z79.4 - ocean transportation intermediary (current) use of insulin (6) Hyperlipidemia: Status: Chronic Assessment and plan: Continue statin therapy. Qualifiers: Hyperlipidemia type: mixed hyperlipidemia Qualified Code(s): E78.2 - Mixed hyperlipidemia (7) COPD (chronic obstructive pulmonary disease): Assessment and plan: Nebulizers as needed. This does not appear to be exacerbated. Qualifiers: COPD type: chronic bronchitis Chronic bronchitis type: unspecified Qualified Code(s): J42 - Unspecified chronic bronchitis (8) GERD (gastroesophageal reflux disease): Assessment and plan: Continue PPI. Patient is on Protonix being on Plavix for his recent stenting. Qualifiers: Esophagitis presence: without esophagitis Qualified Code(s): K21.9 - Gastro-esophageal reflux disease without esophagitis (9) Ulcerative colitis: Assessment and plan: No recent flare of the patient to have sulfasalazine and dicyclomine as per outpatient treatment. Qualifiers: Ulcerative colitis location: other ulcerative colitis Digestive disease complication type: without complication Qualified Code(s): K51.80 - Other ulcer ative colitis without complications Subjective Subjective Interval history since last seen: Patient states that he is doing well and understands that he will likely be transferred to [facility] tomorrow, Thursday07/29/2024. Exam Narrative Exam Narrative: Well appearing older gentleman sitting up on the edge of the bed in no acute distress, AOx4, heart RRR, lungs CTAB, abdomen soft, non-tender, non-distended Objective Last Vital Signs Temp 97.7 F 07/28/24 00:30 Pulse 65 07/28/24 04:01 Resp 16 07/28/24 04:20 BP 83/45 L 07/28/24 04:01 Pulse Ox 93 07/28/24 04:20 Laboratory Results - last 24 hr 07/27/24 07/27/24 07/27/24 14:01 14:06 14:56 WBC 7.18 RBC 3.69 L Hgb 12.5 L Hct 36.8 L MCV 100 H MCH 33.9 H MCHC 34.0 RDW 12.3 Plt Count 179 MPV 11.0 Immature Gran % 0.3 Neutrophils % 76.6 Lymphocytes % 15.5 Monocytes % 5.6 Eosinophils % 1.4 Basophils % 0.6 Nucleated RBC % 0.0 Absolute Neutrophils 5.51 Absolute Lymphocytes 1.11 L Absolute Monocytes 0.40 Absolute Eosinophils 0.10 Absolute Basophils 0.04 PT 10.8 INR 1.1 APTT 23.2 L Sodium 140 Potassium 3.6 Chloride 104 Carbon Dioxide 23.1 Anion Gap 12.9 H BUN 14 Creatinine 1.4 H Est GFR (CKD-EPI 2020) 52.09 Glucose 188 H Calcium 10.1 Magnesium 1.4 L 1.4 L Total Bilirubin 0.82 AST 15 ALT 24 Alkaline Phosphatase 84 Troponin I High Sens 95 H* 101 H* NT-Pro-B Natriuret Pep 1947 H Total Protein 8.9 H Albumin 4.3 TSH 11.71 H Free T4 0.81 Urine Color Urine Clarity Urine pH Ur Specific [place] Urine Protein Urine Ketones Urine Blood Urine Nitrite Urine Bilirubin Urine Urobilinogen Ur Leukocyte Esterase Urine RBC Urine WBC Ur Epithelial Cells Urine Crystals Urine Bacteria Urine Casts Urine Mucus Urine Other Ur Culture Indicated? Urine Glucose 07/27/24 07/27/24 07/27/24 16:36 17:35 21:16 WBC RBC Hgb Hct MCV MCH MCHC RDW Plt Count MPV Immature Gran % Neutrophils % Lymphocytes % Monocytes % Eosinophils % Basophils % Nucleated RBC % Absolute Neutrophils Absolute Lymphocytes Absolute Monocytes Absolute Eosinophils Absolute Basophils PT INR APTT Sodium Potassium Chloride Carbon Dioxide Anion Gap BUN Creatinine Est GFR (CKD-EPI 2020) Glucose Calcium Magnesium Total Bilirubin AST ALT Alkaline Phosphatase Troponin I High Sens 124 H* Cancelled NT-Pro-B Natriuret Pep Total Protein Albumin TSH Free T4 Urine Color Yellow Urine Clarity Clear Urine pH 5.5 Ur Specific [place] 1.015 Urine Protein Negative Urine Ketones Negative Urine Blood Trace-intact H Urine Nitrite Negative Urine Bilirubin Negative Urine Urobilinogen 0.2 Ur Leukocyte Esterase Moderate H Urine RBC 0-2 Urine WBC 10-20 H Ur Epithelial Cells Few Urine Crystals Negative Urine Bacteria Rare Urine Casts Negative Urine Mucus Negative Urine Other Moderate Yeast Ur Culture Indicated? Yes Urine Glucose Negative 07/27/24 07/27/24 07/28/24 21:54 23:30 05:55 WBC 5.59 RBC 3.13 L Hgb 10.7 L Hct 31.3 L MCV 100 H MCH 34.2 H MCHC 34.2 RDW 12.6 Plt Count 149 MPV 11.5 H Immature Gran % Neutrophils % Lymphocytes % Monocytes % Eosinophils % Basophils % Nucleated RBC % Absolute Neutrophils Absolute Lymphocytes Absolute Monocytes Absolute Eosinophils Absolute Basophils PT INR APTT 29.0 65.5 H Sodium 139 Potassium 3.4 L Chloride 103 Carbon Dioxide 26.0 Anion Gap 10.0 BUN 17 Creatinine 1.5 H Est GFR (CKD-EPI 2020) 47.95 Glucose 159 H Calcium 9.0 Magnesium 1.9 Total Bilirubin 0.60 AST 13 L ALT 18 Alkaline Phosphatase 77 Troponin I High Sens 97 H* 86 H* NT-Pro-B Natriuret Pep Total Protein 7.2 Albumin 3.4 TSH Free T4 Urine Color Urine Clarity Urine pH Ur Specific [place] Urine Protein Urine Ketones Urine Blood Urine Nitrite Urine Bilirubin Urine Urobilinogen Ur Leukocyte Esterase Urine RBC Urine WBC Ur Epithelial Cells Urine Crystals Urine Bacteria Urine Casts Urine Mucus Urine Other Ur Culture Indicated? Urine Glucose Time Spent with Patient Time Spent with Patient: >50 minutes Time was spent: preparing to see the patient(eg.review tests), obtaining and/or reviewing separately otained hiistory, ordering medications,tests, procedures, referring, communicating with other health healthcare administration intern, indepentently interpreting results, counseling the patient and care coordination
--- NOTE | 2024-07-28 10:41 | INITIAL_ITS ---
Date of service: 07/28/24 Time of Service: 10:41 Care Management Initial Assmt Initial Assessment Reason for Hospitalization: NSTEMI Functional Status/Living Situation Patient Presentation: Awake, sitting in a chair in the ICU. Easily engages in conversation. CM supported patient with updating his advances directives to indicated that he is a FULL CODE at his request. Town of Residence: [place] Resides with: Child (Daughter Sabrina) Significant Other/Family: Local Natural Supports: Daughter lives with Brian, his son Enrique lives next door Employment Status: Retired Activities/Hobbies/SocialSupport: Enjoys collecting coins Medications Medication Management: No Issues/Barriers identified Physical Functioning/Mobility Assistive Device: Uses a walker or cane PRN Advance Directives Advance Directives: Do you have an Advance Directive: N 01/08/24 11:20 AD On File at [facility]: N 01/08/24 11:20 Date Asked 07/27/24 07/27/24 13:33 AD Date Reviewed COLST On File at [facility] No 07/27/24 13:33 COLST Date Scanned Code Status Resuscitation Status Full Code Portal Pt does not currently have a portal and education provided: Yes Insurance Coverage/Financial Issues Insurance: [employer] [facility] Supplemental Medicare Part A & B Financial Issues: None Care Team Visit Care Team Role Provider Type Deacon Watters NP Primary Care Provider NURSE PRACTITIONER Donnell Zhu MD Emergency Provider [facility] STAFF PHYSICIAN Gómez Fonseca Admit Provider NON-[facility] STAFF PHYSICIAN Attending Provider Discharge Potential Discharge Needs: [place] [facility] Anticipated Barriers to Discharge: None Identified Patient/Family Education Needs: Review discharge instructions, discuss Ask Me Three Transportation: EMS Plan: Brian is being transferred to Cardiology services [place] [facility] [place], likely tomorrow. Patient agrees with this plan and is keeping his family updated. 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) Gastroesophageal reflux disease (Chronic) Hearing loss (Chronic) Right lumbar radiculopathy (Chronic 12/06/15) Ulcerative colitis (Chronic) mild Inguinodynia, left (Acute) Prostatitis (Acute) Hydrocele (Acute) History of tobacco use (Acute) Family history of colon cancer (Acute) Diverticulosis of sigmoid colon (Acute) Colon polyp (Acute) Pain in left testicle (Acute) BPH loc w urin obs/LUTS (Acute) Microscopic hematuria (Acute) Left inguinal pain (Acute) Lumbar back pain with radiculopathy affecting left lower extremity (Acute) Hiatal hernia with GERD (Acute) Dysuria (Acute) Exertional dyspnea (Acute) Hyperlipidemia (Chronic) Right shoulder pain (Acute) Traumatic tear of right rotator cuff (Acute 01/01/22) Skin lesion (Acute) Status post arthroscopy of right shoulder (Acute 09/05/22) s/p rotator cuff repair of supraspinatus, arthroscopic biceps tenodesis, extensive debridement and subacromial decompression Medical History Skin cancer removal x2 weeks ago Glaucoma surgery fixed Tendonitis of long head of biceps brachii of right shoulder Bursitis of right shoulder Esophagitis Subdural hemorrhage Age 17, and a tree fell and hit him age 47 Abnormal colonoscopy 02/22/19 tubular adenoma ascending and transverse colon, sessile serrated adenoma @ 50cm, rectosigmoid colon moderately active chronic colitis/proctitis. mg Inguinal hernia of left side without obstruction or gangrene COPD (chronic obstructive pulmonary disease) Essential hypertension GERD (gastroesophageal reflux disease) Ulcerative colitis DM2 (diabetes mellitus, type 2) Skin cancer, basal cell (10/08/16) Surgical History History of cataract surgery History of esophagogastroduodenoscopy (EGD) (~06/28/21) History of herniorrhaphy (10/19/18) left indirect, dr perez History of appendectomy History of open reduction and internal fixation (ORIF) procedure wrist and ankle [place] [facility]ole[place] Family History Mother Leukemia Father Neoplasm Grandfather Neoplasm STOMACH Grandmother Diabetes Colitis Brother Prostate cancer Nephew Prostate cancer Social History Smoking/Tobacco Use Status: Former Tobacco Use Quit Date: 11/23/91 Pack-years: 20 Second Hand Exposure: Yes Smoking risk assessment performed?: Yes Alcohol Intake: former Drug use: Never Substance use type: does not use Details: alcohol t-7 Caregiver/Support person: No Housing: house Number of Children: 2 Communication Needs: Hard of Hearing Do you need help understanding health information?: Rarely current occupation: Retired Pets and animals: No Sexually active: No Do you think of yourself as: straight/heterosexual Current gender identity: male What is your relationship status?: How often do you talk on the phone with friends or family?: three or more times per week How often do you get together with friends or relatives?: never How often do you attend synagogue or zoroastrianism services?: decline to answer Do you belong to any clubs or organized social groups?: no Panel score (0-1 are the most socially isolated patients): 1 What type of physical activity do you participate in: walking Duration: > 90 minutes/day Frequency: daily Special harmeet needs: No Seatbelt use: always Helmet use: Yes Helmet use: always Drive intox or ride w/intox port cdl a driver: No Do you feel safe at home: Yes Do you feel safe in your relationship?: Yes Victim of physical abuse: No Victim of emotional abuse: No Victim of sexual abuse: No Would you like helpful sources: No Additional Social history: lives alone SDOH(Care Management) Screening Will the Patient Participate in the Screening?: Yes Do you worry about having a steady place to live?: no In the past 12 months, have you had to go without electric, gas, oil or water in your home?: no Have you or anyone in your house had to go without enough food to eat?: no Has lack of transportation kept you from medical appointments or from doing things needed for daily living?: no Has anyone in your support network made you feel unsafe for any reason?: no
--- NOTE | 2024-07-28 11:12 | PHACLINREV_ITS ---
Pharmacy Admission Review Admission Clinical Review Admission Pharmacy Review: Hypomagnesemia (Acute) UTI (urinary tract infection) (Acute) Non-ST elevation NE (NSTEMI) (Acute) hornet venom Allergy (Severe, Verified 07/27/24 13:41) Anaphylaxis amitriptyline Allergy (Verified 07/27/24 13:41) Hives cephalexin (From Keflex) Adverse Reaction (Intermediate, Verified 07/27/24 13:41) headaches empagliflozin (From Jardiance) Adverse Reaction (Intermediate, Verified 07/27/24 13:41) Yeast infection finasteride (From Proscar) Adverse Reaction (Intermediate, Verified 07/27/24 13:41) testicle pain Tetracyclines Adverse Reaction (Intermediate, Verified 07/27/24 13:41) NAUSEA erythromycin base Adverse Reaction (Unknown, Verified 07/27/24 13:41) NAUSEA Resuscitation Status Full Code Height 6 ft 3 in Weight 109.1 kg Comments Comments/Follow Ups: Plan for patient to be transferred [place] [facility] [place] Pharmacy Admission Review Renal Dosing Renal Dosing: BUN 17 mg/dL (7-18) 07/28/24 05:55 Creatinine 1.5 mg/dL (0.70-1.30) H 07/28/24 05:55 Medications needing adjustments: Reviewed (CrCl 55.9 mL/min, SCR increased from 1.4) List of meds needing interventions: Current medications are okay Anticoagulation Anticoagulation: Hgb 10.7 g/dL (13.5-17.5) L 07/28/24 05:55 Hct 31.3 % (40.0-50.0) L 07/28/24 05:55 Plt Count 149 10^3/uL (130-400) 07/28/24 05:55 INR 1.1 (0.9-1.1) 07/27/24 14:06 Creatinine 1.5 mg/dL (0.70-1.30) H 07/28/24 05:55 Therapeutic Anticoagulation: Reviewed (Last aPTT was 65.5 at 0555, Hgb decreased from 12.5) Medications: Heparin (14.4 mL/hr) Relevant Labs Relevant Labs: Sodium 139 mmol/L (136-145) 07/28/24 05:55 Potassium 3.4 mmol/L (3.5-5.1) L 07/28/24 05:55 Chloride 103 mmol/L (98-107) 07/28/24 05:55 Magnesium 1.9 mg/dL (1.8-2.4) 07/28/24 05:55 Electrolytes, C-Reactive P, ESR: Reviewed (K 3.4) DM Control DM Control: Glucose 159 mg/dL (74-106) H 07/28/24 05:55 Finger Stick Blood Glucose 167 0718 Finger Stick Blood Glucose 167 0718 DM Control: Reviewed Insulin Dosing, Diabetic Medication: Has order for SS insulin Cardiac Review Cardiac Review: NT-Pro-B Natriuret Pep 1947 pg/mL (<300) H 07/27/24 14:06 Blood Pressure 83/45 0401 Blood Pressure 92/39 0302 Blood Pressure 82/45 0201 Blood Pressure 85/39 0107 Blood Pressure 91/58 0001 BP, HR, EF%: Reviewed (HR WNL) QTc Review QTc: Reviewed (465 from 07/27/24) IV to PO Switch IV Medications: Reviewed (heparin infusion) Home Meds Home Med List reviewed: Reviewed Relevent Home Meds Not ordered & why?: Budesonide foam, Epipen (PRN), glipizide (has order for SS insulin), glargine (has order for SS insulin), ketoconazole cream, metformin (has order for SS insulin), naproxen (PRN) and sumatriptan (PRN) Current Meds Current Medication Order Review: Intervened Comments: Changed timing of pantoprazole from 0830 to 0730 per pharmacy protocol Pharmacy Antibiotic Review Relevant Labs: WBC 5.59 10^3/uL (4.4-10.8) 07/28/24 05:55 Temperature 36.5 C Pharmacy Antibiotic Activity: C/S review and Reviewed, no change Comments: Patient is on day 1 of levofloxacin PO for UTI. Urine culture pending. Comments Comments/Follow Ups: Plan for patient to be transferred to [facility] [place] tomorrow
[2024-07-28 14:56] LABS: PTT Activated 44.3 sec (23.6-32.8)
[2024-07-28] MEDS: Metoprolol 50 MG TAB PO (17:58)
[2024-07-28] MEDS: Tamsulosin 0.4 MG CAPCR 0.8 MG PO (21:03)
[2024-07-28] MEDS: Atorvastatin 40 MG TAB 80 MG PO (21:03)
[2024-07-28] MEDS: Dicyclomine 20 MG TAB PO (21:04)
[2024-07-28] MEDS: Normal Saline Flush 10 ML SYR IVP (21:07)
[2024-07-28] MEDS: Heparin in 0.45% NaCl 25,000 UNIT/250 ML BAG 16.5 UNIT IV (22:02)
[2024-07-28 22:19] LABS: PTT Activated 58.1 sec (23.6-32.8)
[2024-07-29] VITALS (87 sets, daily range): BP systolic 94–143; BP diastolic 52–81; PULSE 56–68; RESP 10–25; TEMP 36.6–37.3; O2SAT 94–99
[2024-07-29] MEDS: Metoprolol 50 MG TAB PO ×2 (00:56→06:39)
[2024-07-29] MEDS: Normal Saline Flush 10 ML SYR IVP ×2 (00:58→09:44)
[2024-07-29 04:55] LABS: PTT Activated 61.1 sec (23.6-32.8)
[2024-07-29] MEDS: Pantoprazole 40 MG TABCR PO (06:39)
[2024-07-29 08:22] LABS: HCT 32.5 % (40.0-50.0); HGB 10.8 g/dL (13.5-17.5)
[2024-07-29 08:30] LABS: Magnesium 1.9 mg/dL (1.8-2.4)
[2024-07-29] MEDS: sulfaSALAzine 500 MG TAB 1500 MG PO (09:41)
[2024-07-29] MEDS: Losartan 50 MG TAB 100 MG PO (09:41)
[2024-07-29] MEDS: Spironolactone 25 MG TAB PO (09:42)
[2024-07-29] MEDS: Clopidogrel 75 MG TAB PO (09:42)
[2024-07-29] MEDS: levoFLOXacin 500 MG TAB PO (09:42)
[2024-07-29] MEDS: Folic Acid 1 MG TAB PO (09:42)
[2024-07-29] MEDS: Insulin Aspart 300 UNITS/3 ML PEN SC ×2 (09:42→12:17)
[2024-07-29] MEDS: Aspirin E.C. 81 MG TABEC PO (09:43)
[2024-07-29 10:58] LABS: Anion Gap 9.7 mmol/L (3-11); BUN 26 mg/dL (7-18); CO2 25.3 mmol/L (21.0-32.0); CREATININE 1.6 mg/dL (0.70-1.30); Calcium 8.9 mg/dL (8.5-10.1); Chloride 104 mmol/L (98-107); Estimated GFR 44.38 (mL/min/1.73m2); Glucose 198 mg/dL (74-106); Potassium 3.8 mmol/L (3.5-5.1); Sodium 139 mmol/L (136-145)
[2024-07-29] MEDS: nitroGLYcerin 0.4 MG TAB SL (11:29)
--- NOTE | 2024-07-29 11:30 | RT.EKG_ITS ---
APPROVED REPORT Exam: Resting ECG Reason for Exam: Chest Pressure 5/10 1 nitro given Patient Location: I HR:64 bpm ECG Measurements Heart Rate 64 AXIS MD 186 P 28 QRSd 146 QRS 58 QT 463 T 15 QTc 478 Conclusion Sinus rhythm...normal P axis, V-rate 50- 99 Right bundle branch block...QRSd>120, terminal axis(90,270)
--- NOTE | 2024-07-29 12:31 | PDOC.CMPRO ---
Date of service: 07/29/24 Time of Service: 12:31 Care Management Progress Note Progress Note Text Progress Note Text: No change to overall discharge plan. Will transfer to [facility] [place] [place] when a bed becomes available. Discharge Anticipated Barriers to Discharge: Medical Status Patient/Family Education Needs: Review discharge instructions, discuss Ask Me Three Transportation: EMS Plan: Brian is being transferred to Cardiology services at [facility] [place] [place] pending bed availability, likely to happen this afternoon. Patient agrees with this plan and is keeping his family updated. SDOH(Care Management) Screening Will the Patient Participate in the Screening?: Yes Do you worry about having a steady place to live?: no In the past 12 months, have you had to go without electric, gas, oil or water in your home?: no Have you or anyone in your house had to go without enough food to eat?: no Has lack of transportation kept you from medical appointments or from doing things needed for daily living?: no Has anyone in your support network made you feel unsafe for any reason?: no
[2024-07-29] MEDS: Heparin in 0.45% NaCl 25,000 UNIT/250 ML BAG 16.5 UNIT IV (13:21)
[2024-07-29 13:35] LABS: Troponin I 24 ng/L (4-76)
--- NOTE | 2024-07-29 14:18 | CHAPLAIN ---
Brian was resting in bed when I visited. He is waiting for a bed to open up at [facility]. Brian said he had a stent put in a [facility] a few weeks and ago and knows the doctors there so he is comfortable going there. His daughter works at the [employer] and is going to watch an [employer] football game in [facility], but is keep in touch with Brian. Brian shared a lot of personal history telling me about [place] [address] [place], as well as on local bridges. 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 He enjoys talking about local history.
--- NOTE | 2024-07-29 14:38 | DSE_ITS ---
Date of service: 07/29/24 Time of Service: 14:41 DS: Diagnosis Discharge Diagnosis (1) Non-ST elevation VT (NSTEMI): Status: Acute (2) UTI (urinary tract infection): Status: Acute (3) Hypomagnesemia: Status: Acute (4) Essential hypertension: (5) DM2 (diabetes mellitus, type 2): (6) Hyperlipidemia: Status: Chronic (7) COPD (chronic obstructive pulmonary disease): (8) GERD (gastroesophageal reflux disease): (9) Ulcerative colitis: Discharge Plan Disposition Patient Disposition: Transfer-Acute Inpatient Care Specific Acute Inpt Facility: [facility] Condition: Fair Discharge Details Reason For Visit: Non-STEMI, UTI Admit Date/Time: 07/27/24 19:10 Admit Provider: Gómez Fonseca Attending Provider: Gómez Fonseca Primary Care Provider: [facility] Hospital Course Hospital Course: 74 yo M with DM, HTN, COPD, and ulcerative colitis who was admissed 06/30/24 with NSTEMI s/p PCI/EILEEN x 1 who presented with acute dyspnea on exertion and uptrending troponins constistent with another NSTEMI. [facility] was consulted who recommended medical therapy pending bed for transfer. He was treated with heparin drip along with DAPT. His troponins were trending down. On the morning of 07/29 at around 11am he had recurrence of his pain that improved with NTG, repeat EKG showed no changes and repeat troponin was down to 24 (and this was drawn >2 hours after he stated the pain started). He was transferred to [facility] for definitive cardiac evaluation. He did have some dysuria and urinalysis was positive. He was treated with levofloxacin due to his allergy history. Urine grew enterococcus with sensitivities pending at discharge. He was anemic with admission hgb 12.5 up from 10.5 on 07/04. This decreased to 10.7 on 07/28 but stabilized to 10.8 07/29. There was no clinical blood loss noted. He was continued on his outpatient treatment of sulfasalamine for UC. He did report some abdominal cramping starting the morning of 07/29. His creatinine was above baseline at 1.4 on admission and was 1.6 the morning of transfer. His previous Cr was 1.27 on 07/04 and 1.1 on 06/30/24. He received both potassium and magnesium supplementation during his admission. Home Meds and New Rx's Prescriptions: No Action naproxen 250 mg tablet 250 - 500 mg PO BID PRN (Reason: pain and inflammation) Qty: 30 0RF Rx Instructions: take with a meal aspirin 81 mg tablet,delayed release (DR/EC) 81 mg PO DAILY clopidogrel [Plavix] 75 mg tablet 75 mg PO DAILY insulin glargine-yfgn [Semglee(insulin glarg-yfgn)Pen] 100 unit/mL (3 mL) insulin pen 70 unit subcut DAILY metoprolol succinate 100 mg tablet extended release 24 hr 100 mg PO DAILY pantoprazole 40 mg tablet,delayed release (DR/EC) 40 mg PO DAILY spironolactone 25 mg tablet 25 mg PO DAILY Patient Comments: 1/2 tab daily atorvastatin 80 mg tablet 80 mg PO DAILY (DME) blood sugar diagnostic Strip See Rx Instructions .ROUTE .MEDSUPPLY Qty: 100 4RF Rx Instructions: One Daily acetaminophen [Tylenol] 325 mg tablet 650 mg PO Q4H PRN sulfasalazine 500 mg tablet 0.5 gm PO BID dicyclomine 20 mg tablet 20 mg PO Q8H PRN Patient Comments: TAKE ONE TABLET BY MOUTH EVERY 8 HOURS NEEDED epinephrine [EpiPen] 0.3 mg/0.3 mL auto-injector 0.3 ml IM ONCE Qty: 1 0RF Rx Instructions: SEVERE ALLERGIC REACTION TO INSECT STING sumatriptan succinate [Imitrex] 50 mg tablet 50 mg PO ONCE PRN (Reason: migraine headache) Qty: 7 5RF Patient Comments: does not take - pt told not to take by md (JESSICA) OneTouch Ultra Blue Test Strip Strip See Rx Instructions .ROUTE .MEDSUPPLY Qty: 100 4RF Rx Instructions: One Daily (DME) pen needle, diabetic [Pen Needle] 31 gauge x 5/16 needle 1 ea Miscellaneous DAILY Qty: 100 4RF Rx Instructions: BD ultrafine metformin 500 mg tablet 500 mg PO DAILY Qty: 90 3RF glipizide 10 mg tablet 10 mg PO DAILY Qty: 90 4RF folic acid 1 mg tablet 1 mg PO DAILY Qty: 90 4RF insulin glargine [Basaglar KwikPen U-100 Insulin] 100 unit/mL (3 mL) insulin pen 70 unit subcut HS Qty: 63 3RF losartan 100 mg tablet 100 mg PO DAILY Qty: 90 3RF nitroglycerin 0.4 mg tablet, sublingual 0.4 mg sublingual Q5M PRN Rx Instructions: do not exceed 3 doses per episode per [facility] [place] albuterol sulfate 90 mcg/actuation HFA aerosol inhaler 2 puff inhalation Q6H PRN (Reason: shortness of breath or wheezing) Qty: 8.5 2RF tamsulosin 0.4 mg capsule 0.4 mg PO HS Rx Instructions: Take 2 caps daily ketoconazole 2 % cream 1 applic TOPICAL Patient Comments: APPLY TO THE AFFECTED AREAS ON THE GROIN TWICE DAILY (DME) pen needle, diabetic [BD Ultra-Fine Mini Pen Needle] 31 gauge x 3/16 needle MISCELLANEOUS Patient Comments: USE ONCE DAILY budesonide 2 mg/actuation foam WA Patient Comments: INSERT ONE PUMP RECTALLY NIGHTLY FOR 2 WEEKS, THEN CONTINUE EVERY OTHER NIGHT (4NIGHTS PER WEEK) Discharge Instructions Activity:: Activity as Tolerated Equipment/Supplies:: No Equipment Needed Diet:: Low Sodium Discharge Orders Discharge Orders: Discharge Order (Routine); Ordered 07/29/24 Ordered By: Maximilian Castrejon DS: Summary Time Spent with Patient providing and/or coordinating discharge services: Greater than 30 minutes Status at Discharge Functional status at discharge: independent ambulation Overall status at discharge: patient is not back to baseline Mental Status: mental status grossly normal Speech and Movement: speech and movement normal Mood: congruent mood Affect: normal affect Quality:SDOH Health Related Social Needs: Health related social needs details daughter lives wit h pt and son lives next door Exam Narrative Exam Narrative: Well appearing older gentleman sitting up in bed in no acute distress, AOx4. Heart RRR. Lungs CTAB with normal effort. Abdomen soft, non-distended, mild tenderness in LLQ with deep palpation, no guarding/rebound. Extremities not tender, no edema. Psych Mental Status: mental status grossly normal Speech and Movement: speech and movement normal Mood: congruent mood Affect: normal affect DS: Data Vitals/I&O Vitals and I&O: Vital Signs Temperature 36.8 C 07/29/24 11:50 Temperature Source Temporal Artery Scan 07/29/24 11:50 Pulse 63 07/29/24 14:01 Pulse 62 07/29/24 14:01 Respiratory Rate 19 07/29/24 14:01 Respiratory Effort Short of Breath, Pursed Lip 07/27/24 14:57 Respiratory Depth Normal 07/27/24 14:57 Respiratory Pattern Normal 07/27/24 14:57 Blood Pressure 113/57 L 07/29/24 14:01 Blood Pressure Mean 74 07/29/24 14:01 Blood Pressure Position Supine 07/27/24 20:55 Pulse Oximetry 97 07/29/24 14:01 Oxygen Delivery Method Room Air 07/28/24 16:29 Oxygen Flow Rate 0 07/28/24 16:29 Pain Level 0 07/29/24 11:50 Intake & Output 07/28/24 07/29/24 07/29/24 23:59 11:59 23:59 Intake Total 642.692 / 1289.551 98.275 / 241.300 143.025 / 241.300 Output Total 650 / 1300 1250 / 1250 Balance -7.308 / -10.449 -1151.725 / -1008.700 143.025 / -1008.700 Intake: IV 242.692 / 409.551 98.275 / 241.300 143.025 / 241.300 Oral 400 / 880 Output: Urine 650 / 1300 1250 / 1250 Other: Urine Color Yellow Yellow Urine Appearance Clear Clear Urine Odor Normal Normal Stool Size Moderate Stool Characteristics Formed Voiding Methods Urinal Urinal Data Completed and Pending Labs on day of discharge: Labs from last 24 hours 07/29/24 07/29/24 07/28/24 13:08 04:18 22:02 Hgb 10.8 L Hct 32.5 L APTT 61.1 H 58.1 H Sodium 139 Potassium 3.8 Chloride 104 Carbon Dioxide 25.3 Anion Gap 9.7 BUN 26 H Creatinine 1.6 H Est GFR (CKD-EPI 2020) 44.38 Glucose 198 H Calcium 8.9 Magnesium 1.9 Troponin I High Sens 24 07/28/24 14:34 Hgb Hct APTT 44.3 H Sodium Potassium Chloride Carbon Dioxide Anion Gap BUN Creatinine Est GFR (CKD-EPI 2020) Glucose Calcium Magnesium Troponin I High Sens Preliminary micro results at discharge 07/27/24 17:35 Urine Culture - Preliminary Urine - Reflex from Ua Enterococcus Species YEAST PFSH All Active Problems (Updated 07/29/24 @ 14:35 by Maximilian Castrejon) Hypomagnesemia (Acute) UTI (urinary tract infection) (Acute) Non-ST elevation VT (NSTEMI) (Acute) BPH without obstruction/lower urinary tract symptoms (Chronic) HTN (hypertension) (Chronic) Non-ST elevation VT (NSTEMI) (Acute) Chronic neck pain (Acute) Chronic cough (Acute) Status post arthroscopy of right shoulder (Acute 09/05/22) s/p rotator cuff repair of supraspinatus, arthroscopic biceps tenodesis, extensive debridement and subacromial decompression Skin lesion (Acute) Traumatic tear of right rotator cuff (Acute 01/01/22) Right shoulder pain (Acute) Hyperlipidemia (Chronic) Exertional dyspnea (Acute) Dysuria (Acute) Hiatal hernia with GERD (Acute) Lumbar back pain with radiculopathy affecting left lower extremity (Acute) Left inguinal pain (Acute) Microscopic hematuria (Acute) BPH loc w urin obs/LUTS (Acute) Pain in left testicle (Acute) Colon polyp (Acute) Diverticulosis of sigmoid colon (Acute) Family history of colon cancer (Acute) History of tobacco use (Acute) Hydrocele (Acute) Prostatitis (Acute) Inguinodynia, left (Acute) Ulcerative colitis (Chronic) mild Right lumbar radiculopathy (Chronic 12/06/15) Hearing loss (Chronic) Gastroesophageal reflux disease (Chronic) 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 mg Inguinal hernia of left side without obstruction or gangrene COPD (chronic obstructive pulmonary disease) Essential hypertension GERD (gastroesophageal reflux disease) Ulcerative colitis DM2 (diabetes mellitus, type 2) Skin cancer, basal cell (10/08/16) Surgical History History of cataract surgery History of esophagogastroduodenoscopy (EGD) (~06/28/21) History of herniorrhaphy (10/19/18) left indirect, dr perez History of appendectomy History of open reduction and internal fixation (ORIF) procedure wrist and ankle [place] [facility]ole[place] Family History Mother Leukemia Father Neoplasm Grandfather Neoplasm STOMACH Grandmother Diabetes Colitis Brother Prostate cancer Nephew Prostate cancer Social History Smoking/Tobacco Use Status: Former Tobacco Use Quit Date: 11/23/91 Pack-years: 20 Second Hand Exposure: Yes Smoking risk assessment performed?: Yes Alcohol Intake: former Drug use: Never Substance use type: does not use Details: alcohol t-7 Caregiver/Support person: No Housing: house Number of Children: 2 Communication Needs: Hard of Hearing Do you need help understanding health information?: Rarely current occupation: Retired Pets and animals: No Sexually active: No Do you think of yourself as: straight/heterosexual Current gender identity: male What is your relationship status?: How often do you talk on the phone with friends or family?: three or more times per week How often do you get together with friends or relatives?: never How often do you attend confucianist or judaism services?: decline to answer Do you belong to any clubs or organized social groups?: no Panel score (0-1 are the most socially isolated patients): 1 What type of physical activity do you participate in: walking Duration: > 90 minutes/day Frequency: daily Special harmeet needs: No Seatbelt use: always Helmet use: Yes Helmet use: always Drive intox or ride w/intox car pick up driver: No Do you feel safe at home: Yes Do you feel safe in your relationship?: Yes Victim of physical abuse: No Victim of emotional abuse: No Victim of sexual abuse: No Would you like helpful sources: No Additional Social history: lives alone Time Spent with Patient Time Spent with Patient: 45-69 minutes Time was spent: preparing to see the patient(eg.review tests), obtaining and/or reviewing separately otained hiistory, ordering medications,tests, procedures, referring, communicating with other health career technical education instructor, indepentently interpreting results, counseling the patient and care coordination
== END 2024-07-29 16:20 | disposition short-term general hospital (02) | DRG 281 ==
LOC: ER 19:24 → ICU 21:02
PROVIDERS: Family Medicine; Admitting Provider Family Medicine; Emergency Provider Emergency Medicine; PCP Nurse Practitioner Family; Visit Provider Family Medicine
DX: I21.4 Non-ST elevation (NSTEMI) myocardial infarction (principal); K51.80 Other ulcerative colitis without complications; N30.01 Acute cystitis with hematuria; E83.42 Hypomagnesemia; I10 Essential (primary) hypertension; E11.42 Type 2 diabetes mellitus with diabetic polyneuropathy; Z79.4 Long term (current) use of insulin; E78.2 Mixed hyperlipidemia; J42 Unspecified chronic bronchitis; K21.9 Gastro-esophageal reflux disease without esophagitis; M54.2 Cervicalgia; G89.29 Other chronic pain; R05.3 Chronic cough; M54.16 Radiculopathy, lumbar region; Z80.0 Family history of malignant neoplasm of digestive organs; N40.1 Benign prostatic hyperplasia with lower urinary tract symptoms
CPT/HCPCS: 00123; 36415; 80048; 80053; 85027; 87077; 93005; 96365; 96366; 96367; 96375; 99285; 71046; 81003; 81015; 83735; 83880; 84439; 84443; 84484; 85014; 85018; 85025; 85610; 85730; 87086; 87186; 93010; 99223; 99233; 99239; J1644; J1815; J1940; J3475; J3490

== ENCOUNTER 2024-08-10 21:02 | Outpatient (REF) | payer MEDICARE, SELFPAY ==
[2024-08-15 17:02] LABS: Calprotectin <50.0 mcg/g
== END 2024-08-10 21:03 | disposition home or self-care (01) ==
LOC: LBN 21:02
PROVIDERS: PCP Nurse Practitioner Family; Visit Provider Nurse Practitioner Adult Health
DX: K51.50 Left sided colitis without complications (principal)
CPT/HCPCS: 87493; 83993

== ENCOUNTER 2024-08-11 19:19 | Outpatient (REF) | payer MEDICARE, SELFPAY ==
[2024-08-13 11:10] LABS: Campylobacter PCR Negative (Negative); Salmonella PCR Negative (Negative); Shiga Toxin PCR Negative (Negative); Shigella/Enteroinvasive Ecoli Negative (Negative)
== END 2024-08-11 19:20 | disposition home or self-care (01) ==
LOC: LBN 19:19
PROVIDERS: PCP Nurse Practitioner Family; Visit Provider Nurse Practitioner Adult Health
DX: K51.50 Left sided colitis without complications (principal)
CPT/HCPCS: 87505

== ENCOUNTER 2024-08-12 14:51 | Outpatient (CLI) | payer MEDICARE, SELFPAY ==
[2024-08-15 10:45] LABS: Lyme Ab w Rflx to Lyme Confirm Negative (Negative)
[2024-08-16 15:40] LABS: Anaplasma phagocytophilum Negative (Negative); B. miyamotoi PCR Negative (Negative); Babesia divergens/MO-1 Negative (Negative); Babesia duncani Negative (Negative); Babesia microti Negative (Negative); Ehrlichia chaffeensis Negative (Negative); Ehrlichia ewingii/canis Negative (Negative); Ehrlichia muris eauclairensis Negative (Negative)
== END 2024-08-12 14:52 | disposition home or self-care (01) ==
LOC: LBO 14:52
PROVIDERS: PCP Nurse Practitioner Family; Visit Provider Nurse Practitioner Family
DX: W57.XXXA Bitten or stung by nonvenomous insect and other nonvenomous arthropods, initial encounter (principal); Z09 Encounter for follow-up examination after completed treatment for conditions other than malignant neoplasm
CPT/HCPCS: 36415; 87798; 86618

== ENCOUNTER → 2024-09-07 08:12 | Outpatient (BNVA) | payer MEDICARE, SELFPAY | PROVIDERS: PCP Nurse Practitioner Family; Visit Provider Nurse Practitioner Gerontology | DX: N40.0 Benign prostatic hyperplasia without lower urinary tract symptoms (principal); B37.9 Candidiasis, unspecified; L30.9 Dermatitis, unspecified; R31.29 Other microscopic hematuria; N39.0 Urinary tract infection, site not specified; B96.20 Unspecified Escherichia coli [E. coli] as the cause of diseases classified elsewhere; B96.89 Other specified bacterial agents as the cause of diseases classified elsewhere; Z16.11 Resistance to penicillins; Z16.23 Resistance to quinolones and fluoroquinolones | CPT/HCPCS: 51798; 81003; 99213 ==

== ENCOUNTER 2024-09-07 08:41 | Outpatient (REF) | payer MEDICARE, SELFPAY | END 2024-09-07 08:42 | disposition home or self-care (01) | LOC: LBN 08:41 | PROVIDERS: PCP Nurse Practitioner Family; Visit Provider Nurse Practitioner Gerontology | DX: N39.0 Urinary tract infection, site not specified (principal); Z34.91 Encounter for supervision of normal pregnancy, unspecified, first trimester; N40.0 Benign prostatic hyperplasia without lower urinary tract symptoms; R31.29 Other microscopic hematuria; B37.9 Candidiasis, unspecified; L30.9 Dermatitis, unspecified | CPT/HCPCS: 87077; 87086; 87186 ==

== ENCOUNTER 2024-09-19 13:04 | Outpatient (RCR) | payer MEDICARE, SELFPAY ==
--- NOTE | 2024-07-27 14:11 | NUR.NOTE ---
Nursing Note: Pt. arrived at the CR gym at approximately 1300 on 07/27/24 to attend his CR exercise session. Upon entering the CR gym, this RN noted that was walking slowly and appeared fatigued and weak. Pt. sat down in the chair near the nurses' station and VS were obtained. Pt.'s BP was 149/71 on his left upper arm. Pt.'s HR was 119. Pt. was placed on the CR three lead monitor technician to check pt.'s heart rate and rhythm. Pt.'s HR was 119 on the monitor technician as well and was noted to be irregular, which was a change from previous CR exercise sessions. Pt. stated that he was feeling exhausted and weak and just not himself and that he had been feeling that way for the last two days. Pt. also stated that he was feeling lightheaded. Pt. was noted to be moderately short of breath, only able to answer questions with a few words, instead of full sentences. Pt. was noted to be a pale/grayish color. This RN auscultated pt.'s lungs and noted that the bilateral posterior bases were diminished, the bilateral posterior mid and upper lobes were clear, and the bilateral anterior lobes were clear. This RN asked pt. if he had noticed any edema anywhere, and assessed for edema themselves, and noted none at that time. Following auscultation of the pt.'s lungs and edema assessment, pt. was given some water to sip on to try and help with the lightheadedness. Based on the pt.'s assessment, and with the pt.'s consent, report was called to the ED by Tita Calderon RN, while this RN remained with the pt., and pt. was then transported via wheelchair to the ED by Tita Calderon RN. Responsibility of care was transferred to ED staff at that time.
== END 2024-09-22 23:59 | disposition home or self-care (01) ==
LOC: CR 13:04
PROVIDERS: PCP Nurse Practitioner Family; Visit Provider Internal Medicine Cardiovascular Disease
DX: I21.4 Non-ST elevation (NSTEMI) myocardial infarction (principal); Z51.89 Encounter for other specified aftercare
CPT/HCPCS: S9472

== ENCOUNTER 2024-09-21 09:00 | Outpatient (CLI) | payer MEDICARE, SELFPAY ==
--- NOTE | 2024-09-21 08:45 | DI.RAD_ITS ---
Exam(s) XR SHOULDER LT COMPLETE 2+V EXAM: XR SHOULDER LT COMPLETE 2+V CLINICAL HISTORY: LEFT SHOULDER PAIN. TECHNIQUE: 2D digital imaging was performed. Two views. COMPARISON: CR,XR XR SHOULDER LT COMPLETE 2+V from 05/24/2023 FINDINGS: BONES: No acute fracture is present. No bony destructive lesion is seen. JOINTS: No dislocation present. Glenohumeral joint space is maintained. No significant periarticula r spurring. AC joint is suboptimally profiled. No significant inferior spurring. Some spurring is noted at the tip of acromion. SOFT TISSUE: Normal. IMPRESSION: Mild degenerative changes of the undersurface of the acromion. DATA REPOSITORY: RADIATION DOSE DELIVERED:
== END 2024-09-21 09:01 | disposition home or self-care (01) ==
LOC: DIORS 09-22 07:51
PROVIDERS: PCP Nurse Practitioner Family; Referring Provider Nurse Practitioner Family; Visit Provider Student in an Organized Health Care Education/Training Program
DX: M25.512 Pain in left shoulder (principal); M75.102 Unspecified rotator cuff tear or rupture of left shoulder, not specified as traumatic
CPT/HCPCS: 99213; 73030

== ENCOUNTER 2024-10-11 01:51 | Outpatient (CLI) | payer MEDICARE, SELFPAY ==
--- NOTE | 2024-10-11 06:15 | DI.MRI_ITS ---
Exam(s) MR UPPER JOINT LT WO EXAM: MR UPPER JOINT LT WO CLINICAL HISTORY: L SHOULDER PAIN,lt rotator cuff tear,m75.102 TECHNIQUE: Multiplanar multisequence MRI of the shoulder was performed. COMPARISON: MR MR UPPER JOINT RT WO from 08/13/2022 CR XR SHOULDER LT COMPLETE 2+V from 09/21/2024 FINDINGS: MARROW:There is no evidence of fracture, Hill-Sachs deformity, nor ominous osseous lesions. GLENOHUMERAL JOINT: There is moderate articular cartilage loss in the glenohumeral joint. No osteoph ytes nor degenerative subarticular cysts. No glenohumeral joint effusion and there are no loose intr a-articular bodies evident. ROTATOR CUFF MECHANISM: AC JOINT/ACROMIUM: There are moderate degenerative changes in the AC joint. No prominent downgoing o steophytes evident.. There is no evidence of os acromiale. Supraspinatus: There is a significant full-thickness tear at the foot pad insertional aspect of the r otator cuff tendon above the greater tuberosity level, with fluid in the subacromial-subdeltoid bursa . The AP width of the tear is approximately 1.8 cm. No significant muscle atrophy. Infraspinatus: Some of the most anterior aspect of the tendon is involved with tear at the foot pad i nsertion site. Remainder of the tendon appears intact. No muscle atrophy. Teres Minor: Intact. No evidence of tear nor muscle atrophy. Subscapularis/anterior cuff: Intact. No abnormal signal at the level of the multipennate insertional fibers. No significant tear nor atrophy. BICEPS TENDON: Exhibits normal position within the intertubercular groove. No evidence of tear. LABRUM: There is some degenerative thinning of the superior labrum posterior to the biceps tendon att achment site. The majority of the posterior labrum is intact. Mild irregularity in the anterior sup erior labrum noted. QUADRILATERAL SPACE: No evidence of mass in the region of the axillary nerve and dorsal circumflex hu meral vessels. Visualized triceps muscle at this level appears unremarkable. IMPRESSION: 1. Prominent full-thickness tear of the supraspinatus-rotator cuff tendon at the foot pad insertiona l aspect above the greater tuberosity. There is also some involvement of the most anterior aspect of the infraspinatus tendon. There is fluid in the subacromial-subdeltoid bursa. The anterior cuff-byrne bscapularis appears intact. 2. Biceps tendon is intact and nondisplaced. 3. There is some degenerative fraying in the superior and anterior labrum. DATA REPOSITORY:
== END 2024-10-11 02:11 ==
LOC: DI 01:51
PROVIDERS: PCP Nurse Practitioner Family; Visit Provider Student in an Organized Health Care Education/Training Program
DX: M75.122 Complete rotator cuff tear or rupture of left shoulder, not specified as traumatic (principal)
CPT/HCPCS: 73221

== ENCOUNTER → 2024-10-18 09:45 | Outpatient (BNVA) | payer MEDICARE, SELFPAY | PROVIDERS: Referring Provider Nurse Practitioner Family; Visit Provider Student in an Organized Health Care Education/Training Program | DX: M75.102 Unspecified rotator cuff tear or rupture of left shoulder, not specified as traumatic (principal); M12.812 Other specific arthropathies, not elsewhere classified, left shoulder; M79.18 Myalgia, other site; G89.4 Chronic pain syndrome | CPT/HCPCS: 20610; J1010 ==

== ENCOUNTER 2024-10-19 13:06 | Outpatient (RCR) | payer MEDICARE, SELFPAY | END 2024-10-22 23:59 | disposition home or self-care (01) | LOC: CR 13:06 | PROVIDERS: Visit Provider Internal Medicine Cardiovascular Disease | DX: I21.3 ST elevation (STEMI) myocardial infarction of unspecified site (principal); Z51.89 Encounter for other specified aftercare | CPT/HCPCS: S9472 ==

== ENCOUNTER 2024-11-21 13:19 | Outpatient (RCR) | payer MEDICARE, SELFPAY | END 2024-11-22 23:59 | disposition home or self-care (01) | LOC: CR 13:19 | PROVIDERS: Visit Provider Internal Medicine Cardiovascular Disease | DX: I21.4 Non-ST elevation (NSTEMI) myocardial infarction (principal); Z51.89 Encounter for other specified aftercare | CPT/HCPCS: S9472 ==

== ENCOUNTER → 2024-11-30 13:16 | Outpatient (BNVA) | payer MEDICARE, SELFPAY | PROVIDERS: PCP Nurse Practitioner; Referring Provider Nurse Practitioner; Visit Provider Nurse Practitioner Gerontology | DX: N40.1 Benign prostatic hyperplasia with lower urinary tract symptoms (principal); R39.11 Hesitancy of micturition | CPT/HCPCS: 51798; 81003; 99213 ==

== ENCOUNTER 2024-11-30 14:12 | Emergency (ER) | payer MEDICARE, SELFPAY ==
--- NOTE | 2024-11-30 14:00 | RT.EKG_ITS ---
APPROVED REPORT Exam: Resting ECG Reason for Exam: hypertension Patient Location: E HR:66 bpm ECG Measurements Heart Rate 66 AXIS AZ 146 P 0 QRSd 152 QRS 72 QT 462 T 36 QTc 484 Conclusion Sinus rhythm...normal P axis, V-rate 60- 99 Right bundle branch block...QRSd>120, terminal axis(90,270)
[2024-11-30 14:14] VITALS: BP 174/81; PULSE 71; RESP 20; TEMP 36.8; O2SAT 98
[2024-11-30 14:35] VITALS: BP 159/78; PULSE 69; O2SAT 95
[2024-11-30 14:45] VITALS: BP 173/90; PULSE 69; O2SAT 96
--- NOTE | 2024-11-30 14:49 | W.ED.GENAD ---
Discharge Plan Disposition Patient Disposition: Home Condition: Good Discharge Details Clinical Impression: HTN (hypertension) Primary Care Provider: Dee Cooper ED Provider: Nancy Augustin Home Meds and New Rx's Prescriptions: Continued naproxen 250 mg tablet 250 - 500 mg PO BID PRN (Reason: pain and inflammation) Qty: 30 0RF Rx Instructions: take with a meal aspirin 81 mg tablet,delayed release (DR/EC) 81 mg PO DAILY clopidogrel [Plavix] 75 mg tablet 75 mg PO DAILY metoprolol succinate 100 mg tablet extended release 24 hr 100 mg PO DAILY pantoprazole 40 mg tablet,delayed release (DR/EC) 40 mg PO DAILY (DME) blood sugar diagnostic Strip See Rx Instructions .ROUTE .MEDSUPPLY Qty: 100 4RF Rx Instructions: One Daily acetaminophen [Tylenol] 325 mg tablet 650 mg PO Q4H PRN sulfasalazine 500 mg tablet 0.5 gm PO BID dicyclomine 20 mg tablet 20 mg PO Q8H PRN Patient Comments: TAKE ONE TABLET BY MOUTH EVERY 8 HOURS NEEDED atorvastatin 40 mg tablet 40 mg PO DAILY Rx Instructions: Per [facility] (Dr. Mason) tamsulosin 0.4 mg capsule 0.8 mg PO HS Qty: 180 3RF Rx Instructions: Take 2 caps daily epinephrine [EpiPen] 0.3 mg/0.3 mL auto-injector 0.3 ml IM ONCE Qty: 1 0RF Rx Instructions: SEVERE ALLERGIC REACTION TO INSECT STING (DME) blood sugar diagnostic Strip See Rx Instructions .ROUTE .MEDSUPPLY Qty: 100 4RF Rx Instructions: One Daily (DME) pen needle, diabetic [Pen Needle] 31 gauge x 5/16 needle 1 ea Miscellaneous DAILY Qty: 100 4RF Rx Instructions: BD ultrafine metformin 500 mg tablet 500 mg PO DAILY Qty: 90 3RF folic acid 1 mg tablet 1 mg PO DAILY Qty: 90 4RF insulin glargine [Basaglar KwikPen U-100 Insulin] 100 unit/mL (3 mL) insulin pen 70 unit subcut HS Qty: 63 3RF losartan 100 mg tablet 100 mg PO DAILY Qty: 90 3RF albuterol sulfate 90 mcg/actuation HFA aerosol inhaler 2 puff inhalation Q6H PRN (Reason: shortness of breath or wheezing) Qty: 8.5 2RF nitroglycerin 0.4 mg tablet, sublingual 0.4 mg sublingual Q5M PRN (Reason: chest pain) Qty: 10 3RF Rx Instructions: do not exceed 3 doses per episode per [facility] discharge (DME) pen needle, diabetic [BD Ultra-Fine Mini Pen Needle] 31 gauge x 3/16 needle See Rx Instructions .ROUTE .COMPLEX Qty: 100 4RF Dose Instruction: USE ONCE DAILY Rx Instructions: USE ONCE DAILY (DME) OneTouch Ultra Test Strip See Rx Instructions .Route Qty: 100 3RF Rx Instructions: Daily glipizide 10 mg tablet 10 mg PO DAILY Qty: 90 4RF ketoconazole 2 % cream 1 applic TOPICAL DAILY Patient Comments: APPLY TO THE AFFECTED AREAS ON THE GROIN TWICE DAILY Discharge Instructions Instructions: High Blood Pressure ED Additional Instructions: Your blood pressure was much lower in the emergency department than it was at your urology appointment. However, I do want to continue to monitor this and continue take your medications. Please follow-up with primary care in 1 week for reevaluation and discuss any potential changes in medication. However, given the normal readings at home I am concerned at this point that increasing her medications may cause you to have low blood pressure which can make you symptomatic. If you develop any chest pain, shortness of breath, abdominal pain, headaches or other new/worsening symptoms please seek care urgently once again. Referrals: Dee Cooper NP [Primary Care Provider] - [facility] General Date/Time Provider Initiated Documentation: 11/30/24 14:13. Limitations to Documentation: no limitations. Information obtained by: patient, RN notes reviewed and old records reviewed. History of Present Illness 74 year old M presents to the emergency department with the chief complaint of asymptomatic elevated blood pressure, Patient notes no other symptoms.. Patient did receive the following treatments prior to arrival, none Related Data Home Medications ?Medication ?Instructions ?Recorded ?Confirmed acetaminophen 325 mg tablet 650 mg PO Q4H PRN 03/07/19 11/30/24 (Tylenol) sulfasalazine 500 mg tablet 0.5 gm PO BID 10/11/19 11/30/24 epinephrine 0.3 mg/0.3 mL 0.3 ml IM ONCE #1 ea 05/01/21 11/30/24 injection, auto-injector (EpiPen) naproxen 250 mg tablet 250 - 500 mg (1 - 2 x 250 mg) PO 09/17/22 11/30/24 BID PRN pain and inflammation #30 tabs blood sugar diagnostic #100 ea 06/04/23 11/30/24 pen needle, diabetic 31 gauge x #100 ea 06/04/23 11/30/24 5/16 (Pen Needle) metformin 500 mg tablet 500 mg PO DAILY #90 tab-caps 01/06/24 11/30/24 folic acid 1 mg tablet 1 mg PO DAILY #90 tab-caps 02/10/24 11/30/24 insulin glargine 100 unit/mL (3 70 unit (0.7 mL) subcut HS #63 mL 03/02/24 11/30/24 mL) subcutaneous pen (Basaglar KwikPen U-100 Insulin) losartan 100 mg tablet 100 mg PO DAILY #90 tabs 03/02/24 11/30/24 ketoconazole 2 % topical cream 1 applic topical DAILY 06/30/24 11/30/24 aspirin 81 mg tablet,delayed 81 mg PO DAILY 07/06/24 11/30/24 release clopidogrel 75 mg tablet (Plavix) 75 mg PO DAILY 07/06/24 11/30/24 dicyclomine 20 mg tablet 20 mg PO Q8H PRN 07/06/24 11/30/24 metoprolol succinate 100 mg 100 mg PO DAILY 07/06/24 11/30/24 tablet,extended release 24 hr pantoprazole 40 mg tablet,delayed 40 mg PO DAILY 07/06/24 11/30/24 release albuterol sulfate 90 mcg/actuation 2 puff inhalation Q6H PRN 07/13/24 11/30/24 aerosol inhaler shortness of breath or wheezing #8.5 grams blood sugar diagnostic #100 ea 07/22/24 11/30/24 nitroglycerin 0.4 mg sublingual 0.4 mg sublingual Q5M PRN chest 08/04/24 11/30/24 tablet pain #10 tabs pen needle, diabetic 31 gauge x #100 ea 08/18/24 11/30/24 3/16 (BD Ultra-Fine Mini Pen Needle) blood sugar diagnostic (OneTouch #100 ea 08/25/24 11/30/24 Ultra Test strips) atorvastatin 40 mg tablet 40 mg PO DAILY 10/05/24 11/30/24 glipizide 10 mg tablet 10 mg PO DAILY #90 tab-caps 10/26/24 11/30/24 tamsulosin 0.4 mg capsule 0.8 mg (2 x 0.4 mg) PO HS #180 caps 11/30/24 11/30/24 Previous Rx's ?Medication ?Instructions ?Recorded epinephrine 0.3 mg/0.3 mL 0.3 ml IM ONCE #1 ea 05/01/21 injection, auto-injector (EpiPen) naproxen 250 mg tablet 250 - 500 mg (1 - 2 x 250 mg) PO 09/17/22 BID PRN pain and inflammation #30 tabs blood sugar diagnostic #100 ea 06/04/23 pen needle, diabetic 31 gauge x #100 ea 06/04/2304/07 (Pen Needle) metformin 500 mg tablet 500 mg PO DAILY #90 tab-caps 01/06/24 folic acid 1 mg tablet 1 mg PO DAILY #90 tab-caps 02/10/24 insulin glargine 100 unit/mL (3 70 unit (0.7 mL) subcut HS #63 mL 03/02/24 mL) subcutaneous pen (Basaglar KwikPen U-100 Insulin) losartan 100 mg tablet 100 mg PO DAILY #90 tabs 03/02/24 albuterol sulfate 90 mcg/actuation 2 puff inhalation Q6H PRN 07/13/24 aerosol inhaler shortness of breath or wheezing #8.5 grams blood sugar diagnostic #100 ea 07/22/24 nitroglycerin 0.4 mg sublingual 0.4 mg sublingual Q5M PRN chest 08/04/24 tablet pain #10 tabs pen needle, diabetic 31 gauge x #100 ea 08/18/2402/05 (BD Ultra-Fine Mini Pen Needle) blood sugar diagnostic (OneTouch #100 ea 08/25/24 Ultra Test strips) glipizide 10 mg tablet 10 mg PO DAILY #90 tab-caps 10/26/24 tamsulosin 0.4 mg capsule 0.8 mg (2 x 0.4 mg) PO HS #180 caps 11/30/24 Allergies Allergy/AdvReac Type Severity Reaction Status Date / Time hornet venom Allergy Severe Anaphylaxis Verified 11/30/24 14:21 amitriptyline Allergy Hives Verified 11/30/24 14:21 cephalexin (From Keflex) AdvReac Intermediate headaches Verified 11/30/24 14:21 empagliflozin (From AdvReac Intermediate Yeast Verified 11/30/24 14:21 Jardiance) infection finasteride (From Proscar) AdvReac Intermediate testicle Verified 11/30/24 14:21 pain Tetracyclines AdvReac Intermediate NAUSEA Verified 11/30/24 14:21 erythromycin base AdvReac Unknown NAUSEA Verified 11/30/24 14:21 General Stated Complaint: GenMedical CELSO: 3 Review of Systems Constitutional Constitutional: Reports as per HPI, Denies fever(s), Denies headache(s), Denies lethargy and Denies poor appetite Eyes Eyes: Denies change in vision ENT Ears, Nose, Mouth, and Throat: Denies dizziness and Denies headache(s) Cardiovascular Cardiovascular: Reports as per HPI and Denies dyspnea Respiratory Respiratory: Reports as per HPI, Denies chest congestion, Denies cough, Denies pain on inspiration, Denies pain with cough and Denies dyspnea Gastrointestinal Gastrointestinal: Reports as per HPI, Denies abdominal pain, Denies diarrhea, Denies nausea and Denies vomiting Musculoskeletal Musculoskeletal: Reports as per HPI Integumentary/Breasts Skin/Breast: Reports as per HPI and Denies rash Neurologic Neurologic: Reports as per HPI, Denies dizziness and Denies headache(s) Exam Const General: cooperative, healthy appearing, comfortable, no acute distress and well developed Nutritional Appearance: well nourished and overweight Orientation: alert, awake and oriented x3 Chest Chest: normal inspection of the chest, normal palpation of entire chest wall and no crepitus Resp Effort & Inspection: normal respiratory effort, able to speak in complete sentences and no respiratory distress Auscultation: clear to auscultation bilaterally, no rales, no rhonchi and no wheezes Cardio Rate: regular rate Rhythm: regular rhythm Heart Sounds: S1 normal and S2 normal Back/Spine/Pelvis Back: no CVA tenderness Thoracic/Lumbar Spine: thoracic and lumbar spine normal to inspection Back/spine/pelvis image: 1. Area of discomfort elicited with palpation and forward flexion. No pain with rotational movements. No appreciable step-off or deformity. Sensation is intact, no saddle paresthesias. Skin General skin exam: no rashes or lesions noted Trauma: no lacerations or abrasions Neuro General: patient alert, patient awake and patient oriented x3 Cognition: normal cognition Speech: speech normal Gait: normal gait Extrem General: normal to inspection, capillary refill normal, no pedal edema, no calf tenderness and normal gait Course Vital Signs Vital signs: Vital Signs Temperature 36.8 C 11/30/24 14:14 Pulse 71 11/30/24 14:14 Respiratory Rate 20 11/30/24 14:14 Blood Pressure 174/81 H 11/30/24 14:14 Pulse Oximetry 98 11/30/24 14:14 Temperature 36.8 C 11/30/24 14:14 Pulse 69 11/30/24 14:35 Respiratory Rate 20 11/30/24 14:14 Blood Pressure 159/78 H 11/30/24 14:35 Blood Pressure Mean 102 11/30/24 14:35 Blood Pressure Position Sitting 11/30/24 14:14 Pulse Oximetry 95 11/30/24 14:35 Pain Level 5 11/30/24 14:14 Medical Decision Making Patient is a pleasant 74-year-old male with past medical history significant for subdural hemorrhage, COPD, hypertension, GERD, ulcerative colitis, type 2 diabetes, ACS with stent placement, asthma, presenting today for evaluation of elevated blood pressure. He reports that he is feeling better today than he has in a long time. He has been much more active and energetic. He reports he was following up with urology and they noted him to have an elevated blood pressure prompting them to send it to the emergency department. He states that typically he is able to tell when he has an elevated blood pressure. With urology, his blood pressure was noted to be 198/88. He does state that he took his medications this morning which did include his metoprolol. He denies any headache, states that he does have a history of migraines but no change in these and nothing today. He denies any chest pain. States that chronically he becomes winded when going up a flight of stairs but no acute change in this, no increase in shortness of breath. States that he is having some slight back discomfort but associates this with recent physical activity and strain. No pain in the chest or abdomen. No tearing sensations. No neurologic deficits or weakness in his lower extremities. States that overall he is feeling quite well. Patient reports that he monitors his blood pressure daily, has not had readings like this at home. On exam, patient appears nontoxic. Resting comfortably no acute distress. Blood pressure 159/78. Normal heart rate, normal cardiovascular exam. Patient is not endorsing any endorgan damage at this time. I did examine the patient's back has not considered AAA but patient does have tenderness that is able to easily be provoked with palpation and movement over the sacrum which he reports he has had historically and now more recently associates with lifting wood. Cystrin exam were not consistent with AAA, ACS, intracranial hemorrhage, stroke. Blood pressure significantly lower here than it was upstairs. Unclear if this is associated with some of his discomfort Patient's blood pressure is currently significantly lower, closer to his normal. As he has been checking it at home and his had normal readings, occasionally low, I am concerned that elevating his medications any further may cause symptomatic hypotension. He is not experiencing any evidence to suggest endorgan damage so I do not see need for further pursuit with labs or imaging. Patient sees primary care routinely and will call to schedule follow-up appointment. Return precautions were discussed. We discussed the importance of monitoring and ensuring that his blood pressure is well treated. Patient declines any analgesics for his musculoskeletal back pain. Return precautions were discussed. All his questions and concerns were addressed and he is in agreement this plan. This documentation was generated using [employer] dictation system, please disregard any oddities of phrase or misspellings. Quality:SDOH Health Related Social Needs: Health related social needs details daughter lives with pt and son lives next door [facility] All Active Problems (Updated 07/30/24 @ 00:01 by MARK NUNEZ) Amplified musculoskeletal pain (Acute) Rotator cuff tear arthropathy of left shoulder (Acute) Left rotator cuff tear (Acute) Non-ST elevation HI (NSTEMI) (Acute) BPH without obstruction/lower urinary tract symptoms (Chronic) HTN (hypertension) (Chronic) Non-ST elevation HI (NSTEMI) (Acute) Chronic neck pain (Acute) Chronic cough (Acute) Asthma (Chronic) Diabetes mellitus (Chronic 03/10/13) Diabetic peripheral neuropathy associated with type 2 diabetes mellitus (Chronic 12/18/17) Gastroesophageal reflux disease (Chronic) Hearing loss (Chronic) Right lumbar radiculopathy (Chronic 12/06/15) Ulcerative colitis (Chronic) mild Inguinodynia, left (Acute) Prostatitis (Acute) Hydrocele (Acute) History of tobacco use (Acute) Family history of colon cancer (Acute) Diverticulosis of sigmoid colon (Acute) Colon polyp (Acute) Pain in left testicle (Acute) BPH loc w urin obs/LUTS (Acute) Microscopic hematuria (Acute) Left inguinal pain (Acute) Lumbar back pain with radiculopathy affecting left lower extremity (Acute) Hiatal hernia with GERD (Acute) Dysuria (Acute) Exertional dyspnea (Acute) Hyperlipidemia (Chronic) Right shoulder pain (Acute) Traumatic tear of right rotator cuff (Acute 01/01/22) Skin lesion (Acute) Status post arthroscopy of right shoulder (Acute 09/05/22) s/p rotator cuff repair of supraspinatus, arthroscopic biceps tenodesis, extensive debridement and subacromial decompression Medical History Skin cancer removal x2 weeks ago Glaucoma surgery fixed Tendonitis of long head of biceps brachii of right shoulder Bursitis of right shoulder Esophagitis Subdural hemorrhage Age 17, and a tree fell and hit him age 47 Abnormal colonoscopy 02/22/19 tubular adenoma ascending and transverse colon, sessile serrated adenoma @ 50cm, rectosigmoid colon moderately active chronic colitis/proctitis. mg Inguinal hernia of left side without obstruction or gangrene COPD (chronic obstructive pulmonary disease) Essential hypertension GERD (gastroesophageal reflux disease) Ulcerative colitis DM2 (diabetes mellitus, type 2) Skin cancer, basal cell (10/08/16) Surgical History History of cataract surgery History of esophagogastroduodenoscopy (EGD) (~06/28/21) History of herniorrhaphy (10/19/18) left indirect, dr perez History of appendectomy History of open reduction and internal fixation (ORIF) procedure wrist and ankle Colonoscopy - MAC 07/13/14; [facility] Cholecystectomy Family History Mother Leukemia Father Neoplasm Grandfather Neoplasm STOMACH Grandmother Diabetes Colitis Brother Prostate cancer Nephew Prostate cancer Social History Smoking/Tobacco Use Status: Former Tobacco Use Quit Date: 11/23/91 Pack-years: 20 Second Hand Exposure: Yes Smoking risk assessment performed?: Yes Alcohol Intake: former Drug use: Never Substance use type: does not use Counseling given: No Details: alcohol t-7 Caregiver/Support person: No Housing: house Number of Children: 2 Communication Needs: Hard of Hearing Do you need help understanding health information?: Rarely current occupation: Retired Pets and animals: No Sexually active: No Do you think of yourself as: straight/heterosexual Current gender identity: male What is your relationship status?: How often do you talk on the phone with friends or family?: three or more times per week How often do you get together with friends or relatives?: never How often do you attend voodoo or synagogue services?: decline to answer Do you belong to any clubs or organized social groups?: no Panel score (0-1 are the most socially isolated patients): 1 What type of physical activity do you participate in: walking Duration: > 90 minutes/day Frequency: daily Special harmeet needs: No Seatbelt use: always Helmet use: Yes Helmet use: always Drive intox or ride w/intox cdl company flatbed driver: No Do you feel safe at home: Yes Do you feel safe in your relationship?: Yes Victim of physical abuse: No Victim of emotional abuse: No Victim of sexual abuse: No Would you like helpful sources: No Additional Social history: lives alone
[2024-11-30 15:01] VITALS: BP 149/73; PULSE 70
--- NOTE | 2024-12-02 13:17 | W.ED.FU ---
Date of service: 12/02/24 Time of Service: 13:17 Follow Up Plan: Urine culture resulting greater than 100,000 E. coli with some resistance. Patient follows with urology. I called and spoke with Dr. Florentino and discussed results, he will follow-up with the patient and ensure treatment.
== END 2024-11-30 15:04 | disposition home or self-care (01) ==
PROVIDERS: Emergency Provider Physician Assistant; PCP Nurse Practitioner
DX: N39.0 Urinary tract infection, site not specified (principal); B96.20 Unspecified Escherichia coli [E. coli] as the cause of diseases classified elsewhere; I10 Essential (primary) hypertension; J44.9 Chronic obstructive pulmonary disease, unspecified; I45.19 Other right bundle-branch block; E11.40 Type 2 diabetes mellitus with diabetic neuropathy, unspecified; I25.2 Old myocardial infarction; Z79.4 Long term (current) use of insulin; Z79.84 Long term (current) use of oral hypoglycemic drugs; Z79.82 Long term (current) use of aspirin; Z79.01 Long term (current) use of anticoagulants
CPT/HCPCS: 51798; 81003; 87077; 93005; 99213; 99283; 99284; 87086; 87186; 93010

== ENCOUNTER 2024-12-07 14:20 | Outpatient (RCR) | payer MEDICARE, SELFPAY | END 2024-12-23 23:59 | disposition home or self-care (01) | LOC: CR 14:20 | PROVIDERS: PCP Nurse Practitioner; Visit Provider Internal Medicine Cardiovascular Disease | DX: I21.4 Non-ST elevation (NSTEMI) myocardial infarction (principal); Z51.89 Encounter for other specified aftercare | CPT/HCPCS: S9472 ==

== ENCOUNTER → 2025-03-01 11:20 | Outpatient (BNVA) | payer MEDICARE, SELFPAY | PROVIDERS: PCP Nurse Practitioner; Visit Provider Nurse Practitioner Gerontology | DX: N40.0 Benign prostatic hyperplasia without lower urinary tract symptoms (principal); L30.9 Dermatitis, unspecified; I10 Essential (primary) hypertension; N39.0 Urinary tract infection, site not specified; R39.9 Unspecified symptoms and signs involving the genitourinary system | CPT/HCPCS: 51798; 81003; 99213 ==

== ENCOUNTER 2025-03-01 12:53 | Outpatient (REF) | payer MEDICARE, SELFPAY | END 2025-03-01 12:54 | disposition home or self-care (01) | LOC: LBN 12:53 | PROVIDERS: PCP Nurse Practitioner; Visit Provider Nurse Practitioner Gerontology | DX: N39.0 Urinary tract infection, site not specified (principal); R39.9 Unspecified symptoms and signs involving the genitourinary system; N40.0 Benign prostatic hyperplasia without lower urinary tract symptoms; L30.9 Dermatitis, unspecified; I10 Essential (primary) hypertension | CPT/HCPCS: 87086 ==

== ENCOUNTER 2025-03-06 15:17 | Outpatient (REF) | payer MEDICARE, SELFPAY ==
[2025-03-06 15:57] LABS: Bilirubin Negative (Negative); Blood Small (Negative); Clarity Sl Cloudy (Clear); Glucose Negative (Negative); Ketones Trace mg/dL (Negative); Leukocyte Esterase Small (Negative); Nitrite Positive (Negative); Specific Gravity >= 1.030 (1.005-1.025); Urobilinogen 0.2 mg/dL (Up to 0.2); pH 5.5 (5-8)
[2025-03-06 16:03] LABS: WBC >50 HPF (0-5)
[2025-03-06 16:04] LABS: Bacteria Packed HPF (Negative); Crystals Negative HPF (Negative); Epithelial Cells Few HPF (Negative); Mucus Negative (Negative)
[2025-03-06 16:05] LABS: C & S Indicated? C&S Done As Ordered
== END 2025-03-06 15:18 | disposition home or self-care (01) ==
LOC: LBN 15:17
PROVIDERS: PCP Nurse Practitioner; Visit Provider Nurse Practitioner Gerontology
DX: R30.0 Dysuria (principal)
CPT/HCPCS: 87077; 81003; 81015; 87086; 87186

== ENCOUNTER 2025-06-30 15:16 | Outpatient (CLI) | payer MEDICARE, SELFPAY ==
--- NOTE | 2025-06-30 15:15 | RT.EKG_ITS ---
APPROVED REPORT Exam: Resting ECG Reason for Exam: Preop testing EKG Patient Location: O HR:64 bpm ECG Measurements Heart Rate 64 AXIS ND 181 P 42 QRSd 147 QRS 50 QT 436 T 22 QTc 450 Conclusion Sinus rhythm...normal P axis, V-rate 50- 99 Multiform ventricular premature complexes...short R-R, variable morphology Right bundle branch block...QRSd>120, terminal axis(90,270) Baseline wander in lead(s) V2
[2025-06-30 17:09] LABS: Abs Immature Grans 0.02 10^3/uL (0.0-0.06); HCT 32.6 % (40.0-50.0); HGB 10.8 g/dL (13.5-17.5); Immature Grans % 0.3 %; MCH 32.7 pg (27.0-33.0); MCHC 33.1 % (32.0-36.0); MCV 99 fL (80-95); MPV 11.7 fL (8.0-11.0); Platelet Count 174 10^3/uL (130-400); RBC 3.30 10^6/uL (4.36-5.78); RDW 12.6 % (11.8-14.1); RDW-SD 45.3 fL; WBC 6.71 10^3/uL (4.4-10.8)
[2025-06-30 17:33] LABS: ALT 27 U/L (16-63); AST 15 U/L (15-37); Albumin 3.8 g/dL (3.4-5.0); Alkaline Phosphatase 82 U/L (46-116); Anion Gap 5.4 mmol/L (3-11); BUN 16 mg/dL (7-18); Bilirubin, Total 0.4 mg/dL (0.2-1.0); CO2 30.6 mmol/L (21.0-32.0); Calcium 9.7 mg/dL (8.5-10.1); Chloride 108 mmol/L (98-107); Estimated GFR 56.58 (mL/min/1.73m2); Glucose 107 mg/dL (74-106); NT-proBNP 549 pg/mL (<300); Potassium 4.1 mmol/L (3.5-5.1); Sodium 144 mmol/L (136-145); Total Protein 7.9 g/dL (6.4-8.2)
[2025-06-30 17:49] LABS: Hemoglobin A1C 7.2 % (<5.7)
== END 2025-06-30 15:17 | disposition home or self-care (01) ==
LOC: DI.KIM 15:17
PROVIDERS: PCP Nurse Practitioner; Visit Provider Family Medicine
DX: Z01.818 Encounter for other preprocedural examination (principal); N18.30 Chronic kidney disease, stage 3 unspecified; I50.9 Heart failure, unspecified; E11.65 Type 2 diabetes mellitus with hyperglycemia
CPT/HCPCS: 36415; 80053; 93010; 83036; 83880; 85025

== ENCOUNTER → 2025-08-30 11:20 | Outpatient (BNVA) | payer MEDICARE, SELFPAY | PROVIDERS: PCP Nurse Practitioner; Referring Provider Nurse Practitioner; Visit Provider Nurse Practitioner Gerontology | DX: N40.0 Benign prostatic hyperplasia without lower urinary tract symptoms (principal); R39.9 Unspecified symptoms and signs involving the genitourinary system; I10 Essential (primary) hypertension | CPT/HCPCS: 99213; 51798; 81002 ==

== ENCOUNTER 2025-10-27 13:24 | Outpatient (REF) | payer MEDICARE, SELFPAY ==
[2025-10-28 11:08] LABS: Campylobacter PCR Negative (Negative); Shiga Toxin PCR Negative (Negative); Shigella/Enteroinvasive Ecoli Negative (Negative)
== END 2025-10-27 13:25 | disposition home or self-care (01) ==
LOC: LBN 13:24
PROVIDERS: PCP Nurse Practitioner; Visit Provider Nurse Practitioner Adult Health
DX: K51.50 Left sided colitis without complications (principal)
CPT/HCPCS: 87505; 83993

== ENCOUNTER 2025-11-13 16:11 | Outpatient (CLI) | payer MEDICARE, SELFPAY ==
[2025-11-13 15:45] LABS: Abs Immature Grans 0.02 10^3/uL (0.0-0.06); HCT 33.0 % (40.0-50.0); HGB 10.7 g/dL (13.5-17.5); Immature Grans % 0.3 %; MCH 33.1 pg (27.0-33.0); MCHC 32.4 % (32.0-36.0); MCV 102 fL (80-95); MPV 11.0 fL (8.0-11.0); Platelet Count 139 10^3/uL (130-400); RBC 3.23 10^6/uL (4.36-5.78); RDW 12.9 % (11.8-14.1); RDW-SD 47.8 fL; WBC 6.93 10^3/uL (4.4-10.8)
[2025-11-13 16:43] LABS: C-Reactive Protein < 0.50 mg/dL (<=0.50)
[2025-11-13 16:44] LABS: ALT 26 U/L (10-49); AST 23 U/L (<34); Albumin 4.1 g/dL (3.2-5.0); Alkaline Phosphatase 79 U/L (46-116); Anion Gap 8.2 mmol/L (3-11); BUN 14 mg/dL (9-23); Bilirubin, Total 0.4 mg/dL (0.2-1.2); CO2 26.8 mmol/L (20.0-31.0); Calcium 8.8 mg/dL (8.3-10.6); Chloride 109 mmol/L (98-107); Glucose 194 mg/dL (74-106); Potassium 4.4 mmol/L (3.5-5.1); Sodium 144 mmol/L (136-145); Total Protein 7.6 g/dL (5.7-8.2)
== END 2025-11-13 16:12 | disposition home or self-care (01) ==
LOC: LBO 16:11
PROVIDERS: PCP Nurse Practitioner; Visit Provider Nurse Practitioner Adult Health
DX: K51.50 Left sided colitis without complications (principal)
CPT/HCPCS: 36415; 80053; 85025; 86140